=== PATIENT | male | born 1950 | race Caucasian/White ===

== ENCOUNTER 2022-08-31 09:27 | Outpatient (OUT) | payer MEDICARE, OTHER, SELFPAY ==
[2022-08-31 10:22] LABS: Basophils Absolute Auto 0.1 10^3/uL (0.0-0.1); Eosinophils Absolute Auto 0.4 10^3/uL (0.0-0.7); Eosinophils Percent Auto 4.8 % (0.9-7.0); Hematocrit 42.8 % (42.0-54.0); Hemoglobin 14.5 g/dL (14.0-18.0); Immature Granulocytes Abs Auto 0.03 10^3/uL (0.00-0.03); Immature Granulocytes Pct Auto 0.4 % (0.0-0.5); Lymphocytes Absolute Auto 1.3 10^3/uL (1.2-3.8); Lymphocytes Percent Auto 16.7 % (20.5-60.0); Mean Corpuscular HGB Conc 33.9 g/dL (29.9-35.2); Mean Corpuscular Hemoglobin 30.7 pg (25.9-34.0); Mean Corpuscular Volume 90.5 fL (80.0-94.0); Mean Platelet Volume 9.4 fL (9.5-13.5); Monocytes Absolute Auto 0.6 10^3/uL (0.3-0.8); Neutrophils Absolute Auto 5.5 10^3/uL (1.4-6.5); Neutrophils Percent Auto 69.1 % (43.0-75.0); Nucleated Red Blood Cells 0; Platelet Count 239 10^3/uL (150-450); Red Blood Count 4.73 10^6/uL (4.70-6.10); Red Cell Distribution Width 13.1 % (11.0-15.0); White Blood Count 7.9 10^3/uL (4.0-11.0)
[2022-08-31 11:08] LABS: Anion Gap 14.2; BUN Creatinine Ratio 16.2; Calcium 9.3 mg/dL (8.5-10.1); Carbon Dioxide 27.5 mmol/L (21.0-32.0); Chloride 101 mmol/L (98-107); Estimated GFR (African America 35 (>=60); Estimated GFR (Non-African Ame 29 (>=60); Glucose 176 mg/dL (74-106); Potassium 4.7 mmol/L (3.5-5.1); Sodium 138 mmol/L (136-145)
== END 2022-08-31 09:28 ==
LOC: LAB 09:42
PROVIDERS: PCP Internal Medicine; Visit Provider Internal Medicine
DX: I95.2 Hypotension due to drugs (principal); N18.32 Chronic kidney disease, stage 3b
CPT/HCPCS: 36415; 80048; 85025

== ENCOUNTER 2022-12-31 07:48 | Outpatient (OUT) | payer MEDICARE, OTHER, SELFPAY ==
[2022-12-31 08:44] LABS: Hematocrit 45.6 % (42.0-54.0); Hemoglobin 15.2 g/dL (14.0-18.0); Mean Corpuscular HGB Conc 33.3 g/dL (29.9-35.2); Mean Corpuscular Hemoglobin 31.2 pg (25.9-34.0); Mean Corpuscular Volume 93.6 fL (80.0-94.0); Mean Platelet Volume 9.9 fL (9.5-13.5); Platelet Count 191 10^3/uL (150-450); Red Blood Count 4.87 10^6/uL (4.70-6.10); Red Cell Distribution Width 13.3 % (11.0-15.0); White Blood Count 8.3 10^3/uL (4.0-11.0)
[2022-12-31 08:56] LABS: Bilirubin Urine NEGATIVE (NEGATIVE); Blood Urine NEGATIVE (NEGATIVE); Clarity Urine CLEAR (CLEAR); Color Urine LT. YELLOW (YELLOW); Glucose Urine UA >=1000 mg/dL (NEGATIVE); Ketones Urine NEGATIVE (NEGATIVE); Leukocyte Esterase Urine NEGATIVE (NEGATIVE); Nitrite Urine NEGATIVE (NEGATIVE); Protein Urine NEGATIVE (NEG/TRACE); Specific Gravity Urine 1.015 (1.005-1.025); Urobilinogen Urine 0.2 EU/dL (0.2-1.0)
[2022-12-31 09:03] LABS: Bacteria Urine NONE SEEN #/HPF (NONE SEEN); Cast Seen? NONE SEEN #/LPF (NONE SEEN); Crystals Seen? None Seen #/HPF (None Seen); Mucus Urine NONE SEEN (NONE SEEN); RBC Urine NONE SEEN #/HPF (0-2); Squamous Epithelial Cell Urine NONE SEEN #/LPF (NONE/RARE); WBC Urine NONE SEEN #/HPF (NONE SEEN)
[2022-12-31 09:07] LABS: Anion Gap 13.8; BUN Creatinine Ratio 16.7; Calcium 9.4 mg/dL (8.5-10.1); Carbon Dioxide 28.1 mmol/L (21.0-32.0); Chloride 104 mmol/L (98-107); Estimated GFR (African America 44 (>=60); Estimated GFR (Non-African Ame 36 (>=60); Glucose 196 mg/dL (74-106); Magnesium 2.1 mg/dL (1.8-2.4); Phosphorus 4.1 mg/dL (2.6-4.7); Potassium 4.9 mmol/L (3.5-5.1); Sodium 141 mmol/L (136-145); Uric Acid 5.7 mg/dL (3.5-7.2)
[2022-12-31 09:28] LABS: Creatinine Urine Random 104.31 mg/dL (20.00-300.00); Protein Creatinine Ratio Urine 0.09; Total Protein Urine Random 9.4 mg/dL (<=11.9)
[2023-01-01 13:10] LABS: PTH, Intact 60 pg/mL (15-65)
== END 2022-12-31 07:49 | disposition home or self-care (01) ==
LOC: LAB 07:51
PROVIDERS: PCP Internal Medicine; Visit Provider Internal Medicine
DX: I12.9 Hypertensive chronic kidney disease with stage 1 through stage 4 chronic kidney disease, or unspecified chronic kidney disease (principal); N18.30 Chronic kidney disease, stage 3 unspecified; E11.22 Type 2 diabetes mellitus with diabetic chronic kidney disease; E55.9 Vitamin D deficiency, unspecified; E78.5 Hyperlipidemia, unspecified
CPT/HCPCS: 36415; 80069; 81001; 82306; 82570; 83735; 83970; 84156; 84550; 85027

== ENCOUNTER 2023-01-04 07:46 | Outpatient (OUT) | payer MEDICARE, OTHER, SELFPAY ==
--- NOTE | 2023-01-04 07:49 | CT_ITS ---
[address] [address] Patient Name: LANI LIZAMA MRN: [id number] date: 1950 Sex: M Assigned Patient Location: CT Current Patient Location: CT Accession/Order Number: [id number] Exam Date: 01/04/2023 07:50 Report Date: 01/04/2023 13:45 At the request of: DEVEN CRESPO Procedure: CT chest wo con CT chest wo con CLINICAL HISTORY: History of pneumonia one year ago. Pulmonary Infiltrate R91.8 COMPARISON: 08/09/2022. CT CHEST TECHNIQUE: Noncontrast axial CT images obtained from lung apices through lung bases. Coronal and sagittal reconstructions performed. Dose reduction techniques were achieved by using automated exposure control and/or adjustment of mA and/or kV according to patient size and/or use of iterative reconstruction technique. CT CHEST FINDINGS: Lower thyroid unremarkable. No axillary adenopathy. Thoracic spondylosis without acute bony process. Cholelithiasis in the gallbladder. Normal sized adrenal glands. Median sternotomy and CABG with coronary artery calcifications. Pacemaker leads. No pericardial effusion. No mediastinal adenopathy. Lungs with unchanged groundglass and reticular opacities in the right upper and right middle lobes compared to prior. Posterior 7 mm right middle lobe opacity on image 51 minimally decreased from July 2022 of 8 mm. Inferior right middle lobe ill-defined nodular opacity on image 65 is stable. A few groundglass and slight chronic scarlike changes in the right lower lobe are stable. Left lung is clear. No interval consolidative opacities or effusions. CT/CT chest wo con IMPRESSION: Stable groundglass, reticular and scarlike opacities in the right lung back to July 2022. Ill-defined nodular focus in the inferior right middle lobe is stable. Posterior right middle lobe nodular opacity is minimally decreased. 6 month follow-up noncontrast CT. No other interval acute process or significant change. Electronically authenticated by: LUCY SARABIA Date: 01/04/2023 13:45
== END 2023-01-04 07:47 | disposition home or self-care (01) ==
LOC: CT 07:46
PROVIDERS: PCP Internal Medicine; Visit Provider Internal Medicine
DX: R91.8 Other nonspecific abnormal finding of lung field (principal)
CPT/HCPCS: 71250

== ENCOUNTER 2023-01-24 15:17 | Inpatient (IN) | payer MEDICARE, OTHER, SELFPAY ==
[2023-01-24] VITALS (36 sets, daily range): BP systolic 79–167; BP diastolic 47–106; PULSE 74–115; RESP 9–20; TEMP 36.2–36.8; O2SAT 92–99; BMI 26.6; BMI 26.9
--- NOTE | 2023-01-24 15:27 | XR_ITS ---
The [address] [address] Patient Name: LANI LIZAMA MRN: [id number] date: 1950 Sex: M Assigned Patient Location: ER Current Patient Location: ER Accession/Order Number: [id number] Exam Date: 01/24/2023 15:35 Report Date: 01/24/2023 16:02 At the request of: JACLYN VALDES Procedure: XR chest 1V EXAM: XR chest 1V HISTORY: Chest pain COMPARISON: 01/04/2023 TECHNIQUE: Chest X-ray AP, 1 view FINDINGS: Support devices: Left-sided pacemaker is noted with distal tip overlying the right atrium and right ventricle. Lungs/pleura: No consolidation, effusion, or pneumothorax. Redemonstration of hazy opacity in involving right middle lobe, similar to the prior study, likely representing parenchymal scarring. Heart and mediastinum: Normal contours. Bones: No acute abnormality identified. XR/XR chest 1V Impression: No radiographic evidence of acute cardiopulmonary process. Electronically authenticated by: HAZEL SCHILLING Date: 01/24/2023 16:02
--- NOTE | 2023-01-24 15:27 | ECG_ITS ---
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
--- NOTE | 2023-01-24 15:35 | ED.CHESTPAI1 ---
Documented by User: ANOOP Causey 01/24/23 17:49 HPI - Chest Pain General Chief Complaint: Chest Pain Stated Complaint: Chest Pain Time Seen by Provider: 01/24/23 15:27 Source: patient Mode of arrival: walk-in Limitations: no limitations History of Present Illness HPI narrative: patient is a 72-year-old male with a significant history of coronary artery disease, pacemaker, stents ?6 who presents to the Emergency Room for intermittent chest pain and pressure in the anterior chest that began today. 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 Patient states the pain was more intense today, he was feeling short of breath. He has had no fevers, cough, congestion. He had a heart attack in March of last year, after which his cardiac monitoring was abnormal requiring pacemaker placement. He did not take any aspirin or nitroglycerin prior to arrival today. Related Data Home Medications Medication Instructions Recorded Confirmed alprazolam 0.5 mg tablet (Xanax) 0.5 mg PO BID 01/24/23 01/24/23 aspirin 81 mg tablet,delayed 81 mg PO DAILY 01/24/23 01/24/23 release (Adult Aspirin Regimen) bumetanide 0.5 mg tablet 0.5 mg PO .MORNING 01/24/23 01/24/23 carvedilol 12.5 mg tablet 12.5 mg PO Q12H 01/24/23 01/24/23 cetirizine 10 mg capsule (All Day 10 mg PO DAILY 01/24/23 01/24/23 Allergy (cetirizine)) cholecalciferol (vitamin D3) 25 25 mcg PO DAILY 01/24/23 01/24/23 mcg (1,000 unit) tablet (Vitamin D3) clopidogrel 75 mg tablet 75 mg PO .HS 01/24/23 01/24/23 docusate sodium 100 mg capsule 100 mg PO DAILY 01/24/23 01/24/23 (Colace) empagliflozin 10 mg tablet 10 mg PO QAM 01/24/23 01/24/23 (Jardiance) insulin aspart U-100 100 unit/mL 1 sliding scale dose subcut 01/24/23 01/24/23 (3 mL) subcutaneous pen (Novolog USEASDIRECTD FlexPen U-100 Insulin aspart) insulin detemir U-100 100 unit/mL 1 unit subcut DAILY 01/24/23 01/24/23 (3 mL) subcutaneous pen (Levemir FlexPen) isosorbide mononitrate 60 mg 30 mg PO BID 01/24/23 01/24/23 tablet,extended release 24 hr lisinopril 2.5 mg tablet 2.5 mg PO DAILY 01/24/23 01/24/23 lovastatin 40 mg tablet 40 mg PO .PM 01/24/23 01/24/23 multivitamin with iron-mineral 1 tab PO DAILY 01/24/23 01/24/23 nitroglycerin 0.4 mg sublingual 0.4 mg sublingual Q5M PRN chest 01/24/23 01/24/23 tablet pain pantoprazole 40 mg tablet,delayed 40 mg PO DAILY 01/24/23 01/24/23 release potassium chloride 10 mEq 10 meq PO DAILY 01/24/23 01/24/23 tablet,extended release semaglutide 1 mg/dose (2 mg/1.5 1 mg subcut QWEEK 01/24/23 01/24/23 mL) subcutaneous pen injector (Ozempic) Allergies Allergy/AdvReac Type Severity Reaction Status Date / Time No Known Drug Allergies Allergy Verified 01/24/23 15:28 Review of Systems ROS Constitutional Denies: fever or chills Ears, nose, mouth, and throat Denies: throat pain Cardiovascular Reports: chest pain Respiratory Reports: shortness of breath; Denies: cough Gastrointestinal Denies: abdominal pain, nausea or vomiting Musculoskeletal Denies: back pain or neck pain Integumentary/Breast Denies: rash Neurological Denies: headache Hematologic/Lymphatic Denies: easy bruising PFSH [facility] Social History Smoking status: Never smoker Exam Narrative Exam Narrative: Gen.: Awake, alert, in no distress Head: Normocephalic, atraumatic ENT: Moist mucous membranes Respiratory: No respiratory distress, lungs clear bilaterally Cardio: Regular rate and rhythm Gastrointestinal: Abdomen is soft, nondistended and nontender to palpation Extremities: Moves extremities equally Psych: Normal mood and affect Neuro: No focal neuro deficit Skin: Warm, dry, intact Constitutional Vital Signs, click to edit/add: Last Vital Signs Temp 97.9 F 01/24/23 15:22 Pulse 106 H 01/24/23 18:15 Resp 14 01/24/23 18:15 BP 135/91 01/24/23 18:15 Pulse Ox 97 01/24/23 18:15 O2 Del Method Room Air 01/24/23 15:22 Course Vital Signs Vital signs: Vital Signs Temperature 97.9 F 01/24/23 15:22 Pulse Rate 110 H 01/24/23 15:22 Respiratory Rate 20 01/24/23 15:22 Blood Pressure 153/100 H 01/24/23 15:22 Pulse Oximetry 98 01/24/23 15:22 Oxygen Delivery Method Room Air 01/24/23 15:22 Temperature 97.9 F 01/24/23 15:22 Pulse Rate 106 H 01/24/23 18:15 Respiratory Rate 14 01/24/23 18:15 Blood Pressure 135/91 01/24/23 18:15 Pulse Oximetry 97 01/24/23 18:15 Oxygen Delivery Method Room Air 01/24/23 15:22 MDM - Chest Pain MDM Narrative Medical decision making narrative: lab studies including troponin are within normal limits, patient with no PE risk factors, patient was treated with a total of three sublingual nitroglycerin, aspirin given in the Emergency Room. Pain did improve significantly with nitroglycerin. I discussed this with cardiology at [facility], Dr. Armijo who recommended that the patient can be kept at this facility for cardiac rule out. Patient with stable blood pressure in the Emergency Room. Reevaluated by attending physician prior to admission. Medical Records Data Attestation: I reviewed the patient's medical records. Lab Data Attestation: I reviewed the patient's lab results. Labs: Lab Results 01/24/23 01/24/23 Range/Units 15:35 17:39 WBC 9.4 (4.0-11.0) 10^3/uL RBC 5.04 (4.70-6.10) 10^6/uL Hgb 15.8 (14.0-18.0) g/dL Hct 46.3 (42.0-54.0) % MCV 91.9 (80.0-94.0) fL MCH 31.3 (25.9-34.0) pg MCHC 34.1 (29.9-35.2) g/dL RDW 13.0 (11.0-15.0) % Plt Count 217 (150-450) 10^3/uL MPV 9.6 (9.5-13.5) fL Neut % (Auto) 63.8 (43.0-75.0) % Lymph % (Auto) 23.5 (20.5-60.0) % [place] % (Auto) 9.0 (1.7-12.0) % Eos % (Auto) 2.5 (0.9-7.0) % Baso % (Auto) 0.9 (0.2-2.0) % Neut # (Auto) 6.0 (1.4-6.5) 10^3/uL Lymph # (Auto) 2.2 (1.2-3.8) 10^3/uL [place] # (Auto) 0.8 (0.3-0.8) 10^3/uL Eos # (Auto) 0.2 (0.0-0.7) 10^3/uL Baso # (Auto) 0.1 (0.0-0.1) 10^3/uL Abs Immat Gran (auto) 0.03 (0.00-0.03) 10^3/uL Imm/Tot Granulo (auto) 0.3 (0.0-0.5) % PT 10.7 (9.0-11.6) sec INR 1.01 APTT 28.3 (22.3-36.2) sec Sodium 137 (136-145) mmol/L Potassium 4.3 (3.5-5.1) mmol/L Chloride 101 (98-107) mmol/L Carbon Dioxide 26.9 (21.0-32.0) mmol/L Anion Gap 13.4 BUN 30.0 H (7.0-18.0) mg/dL Creatinine 2.23 H (0.70-1.30) mg/dL Est GFR ( Amer) 35 L (>=60) Est GFR (Non-Af Amer) 29 L (>=60) BUN/Creatinine Ratio 13.5 Glucose 168 H (74-106) mg/dL Calcium 9.4 (8.5-10.1) mg/dL Total Bilirubin 0.7 (0.2-1.0) mg/dL AST 25 (15-37) U/L ALT 21 (16-63) U/L Alkaline Phosphatase 136 H (46-116) U/L Troponin I High Sens 12.2 57.2 (4.0-76.1) pg/mL NT-Pro-B Natriuret Pep 956.0 H (<=900.0) pg/mL Total Protein 8.4 H (6.4-8.2) g/dL Albumin 4.5 (3.4-5.0) g/dL Globulin 3.9 g/dL Albumin/Globulin Ratio 1.2 Imaging Data Chest x-ray: Attestation: I have reviewed the pertinent imaging results. Radiologist's impression: Procedure: XR chest 1V EXAM: XR chest 1V HISTORY: Chest pain COMPARISON: 01/04/2023 TECHNIQUE: Chest X-ray AP, 1 view FINDINGS: Support devices: Left-sided pacemaker is noted with distal tip overlying the right atrium and right ventricle. Lungs/pleura: No consolidation, effusion, or pneumothorax. Redemonstration of hazy opacity in involving right middle lobe, similar to the prior study, likely representing parenchymal scarring. Heart and mediastinum: Normal contours. Bones: No acute abnormality identified. Impression: No radiographic evidence of acute cardiopulmonary process. Electronically authenticated by: HAZEL SCHILLING Date: 01/24/2023 16:02 ECG Data Attestation: I personally reviewed and interpreted this ECG as follows: (electronic ventricular pacemaker at a rate of 107, no obvious ST elevation, EKG reviewed by attending physician) ECG interpretation date: 01/24/23 ECG interpretation time: 15:39 Heart Score History: Moderately Suspicious ECG: NS Repolarization Age: >65 years Risk Factors: >3 Risk Factors/ HX of CAD:2 Troponin: <Normal Limit Total Heart Score Recommendations & Risks:: 6 Discharge Plan Discharge Chief Complaint: Chest Pain Clinical Impression: Chest pain Patient Disposition: Admitted as Observation Time of Disposition Decision: 17:49 Condition: Good Documented by User: Christopher Deleon 01/24/23 18:25 HPI - Chest Pain General Chief Complaint: Chest Pain Stated Complaint: Chest Pain Time Seen by Provider: 01/24/23 15:27 Related Data Home Medications Medication Instructions Recorded Confirmed alprazolam 0.5 mg tablet (Xanax) 0.5 mg PO BID 01/24/23 01/24/23 aspirin 81 mg tablet,delayed 81 mg PO DAILY 01/24/23 01/24/23 release (Adult Aspirin Regimen) bumetanide 0.5 mg tablet 0.5 mg PO .MORNING 01/24/23 01/24/23 carvedilol 12.5 mg tablet 12.5 mg PO Q12H 01/24/23 01/24/23 cetirizine 10 mg capsule (All Day 10 mg PO DAILY 01/24/23 01/24/23 Allergy (cetirizine)) cholecalciferol (vitamin D3) 25 25 mcg PO DAILY 01/24/23 01/24/23 mcg (1,000 unit) tablet (Vitamin D3) clopidogrel 75 mg tablet 75 mg PO .HS 01/24/23 01/24/23 docusate sodium 100 mg capsule 100 mg PO DAILY 01/24/23 01/24/23 (Colace) empagliflozin 10 mg tablet 10 mg PO QAM 01/24/23 01/24/23 (Jardiance) insulin aspart U-100 100 unit/mL 1 sliding scale dose subcut 01/24/23 01/24/23 (3 mL) subcutaneous pen (Novolog USEASDIRECTD FlexPen U-100 Insulin aspart) insulin detemir U-100 100 unit/mL 1 unit subcut DAILY 01/24/23 01/24/23 (3 mL) subcutaneous pen (Levemir FlexPen) isosorbide mononitrate 60 mg 30 mg PO BID 01/24/23 01/24/23 tablet,extended release 24 hr lisinopril 2.5 mg tablet 2.5 mg PO DAILY 01/24/23 01/24/23 lovastatin 40 mg tablet 40 mg PO .PM 01/24/23 01/24/23 multivitamin with iron-mineral 1 tab PO DAILY 01/24/23 01/24/23 nitroglycerin 0.4 mg sublingual 0.4 mg sublingual Q5M PRN chest 01/24/23 01/24/23 tablet pain pantoprazole 40 mg tablet,delayed 40 mg PO DAILY 01/24/23 01/24/23 release potassium chloride 10 mEq 10 meq PO DAILY 01/24/23 01/24/23 tablet,extended release semaglutide 1 mg/dose (2 mg/1.5 1 mg subcut QWEEK 01/24/23 01/24/23 mL) subcutaneous pen injector (Ozempic) Allergies Allergy/AdvReac Type Severity Reaction Status Date / Time No Known Drug Allergies Allergy Verified 01/24/23 15:28 PFSH PFS Social History Smoking status: Never smoker Exam Constitutional Vital Signs, click to edit/add: Last Vital Signs Temp 97.9 F 01/24/23 15:22 Pulse 106 H 01/24/23 18:15 Resp 14 01/24/23 18:15 BP 135/91 01/24/23 18:15 Pulse Ox 97 01/24/23 18:15 O2 Del Method Room Air 01/24/23 15:22 Course Vital Signs Vital signs: Vital Signs Temperature 97.9 F 01/24/23 15:22 Pulse Rate 110 H 01/24/23 15:22 Respiratory Rate 20 01/24/23 15:22 Blood Pressure 153/100 H 01/24/23 15:22 Pulse Oximetry 98 01/24/23 15:22 Oxygen Delivery Method Room Air 01/24/23 15:22 Temperature 97.9 F 01/24/23 15:22 Pulse Rate 106 H 01/24/23 18:15 Respiratory Rate 14 01/24/23 18:15 Blood Pressure 135/91 01/24/23 18:15 Pulse Oximetry 97 01/24/23 18:15 Oxygen Delivery Method Room Air 01/24/23 15:22 MDM - Chest Pain Lab Data Labs: Lab Results 01/24/23 01/24/23 Range/Units 15:35 17:39 WBC 9.4 (4.0-11.0) 10^3/uL RBC 5.04 (4.70-6.10) 10^6/uL Hgb 15.8 (14.0-18.0) g/dL Hct 46.3 (42.0-54.0) % MCV 91.9 (80.0-94.0) fL MCH 31.3 (25.9-34.0) pg MCHC 34.1 (29.9-35.2) g/dL RDW 13.0 (11.0-15.0) % Plt Count 217 (150-450) 10^3/uL MPV 9.6 (9.5-13.5) fL Neut % (Auto) 63.8 (43.0-75.0) % Lymph % (Auto) 23.5 (20.5-60.0) % [place] % (Auto) 9.0 (1.7-12.0) % Eos % (Auto) 2.5 (0.9-7.0) % Baso % (Auto) 0.9 (0.2-2.0) % Neut # (Auto) 6.0 (1.4-6.5) 10^3/uL Lymph # (Auto) 2.2 (1.2-3.8) 10^3/uL [place] # (Auto) 0.8 (0.3-0.8) 10^3/uL Eos # (Auto) 0.2 (0.0-0.7) 10^3/uL Baso # (Auto) 0.1 (0.0-0.1) 10^3/uL Abs Immat Gran (auto) 0.03 (0.00-0.03) 10^3/uL Imm/Tot Granulo (auto) 0.3 (0.0-0.5) % PT 10.7 (9.0-11.6) sec INR 1.01 APTT 28.3 (22.3-36.2) sec Sodium 137 (136-145) mmol/L Potassium 4.3 (3.5-5.1) mmol/L Chloride 101 (98-107) mmol/L Carbon Dioxide 26.9 (21.0-32.0) mmol/L Anion Gap 13.4 BUN 30.0 H (7.0-18.0) mg/dL Creatinine 2.23 H (0.70-1.30) mg/dL Est GFR ( Amer) 35 L (>=60) Est GFR (Non-Af Amer) 29 L (>=60) BUN/Creatinine Ratio 13.5 Glucose 168 H (74-106) mg/dL Calcium 9.4 (8.5-10.1) mg/dL Total Bilirubin 0.7 (0.2-1.0) mg/dL AST 25 (15-37) U/L ALT 21 (16-63) U/L Alkaline Phosphatase 136 H (46-116) U/L Troponin I High Sens 12.2 57.2 (4.0-76.1) pg/mL NT-Pro-B Natriuret Pep 956.0 H (<=900.0) pg/mL Total Protein 8.4 H (6.4-8.2) g/dL Albumin 4.5 (3.4-5.0) g/dL Globulin 3.9 g/dL Albumin/Globulin Ratio 1.2 Heart Score Total Heart Score Recommendations & Risks:: 6 Discharge Plan Discharge Chief Complaint: Chest Pain Clinical Impression: Chest pain Patient Disposition: Admitted as Observation Time of Disposition Decision: 17:49 Condition: Good
[2023-01-24 15:51] LABS: Basophils Absolute Auto 0.1 10^3/uL (0.0-0.1); Basophils Percent Auto 0.9 % (0.2-2.0); Eosinophils Absolute Auto 0.2 10^3/uL (0.0-0.7); Eosinophils Percent Auto 2.5 % (0.9-7.0); Hematocrit 46.3 % (42.0-54.0); Hemoglobin 15.8 g/dL (14.0-18.0); Immature Granulocytes Abs Auto 0.03 10^3/uL (0.00-0.03); Immature Granulocytes Pct Auto 0.3 % (0.0-0.5); Lymphocytes Absolute Auto 2.2 10^3/uL (1.2-3.8); Lymphocytes Percent Auto 23.5 % (20.5-60.0); Mean Corpuscular HGB Conc 34.1 g/dL (29.9-35.2); Mean Corpuscular Hemoglobin 31.3 pg (25.9-34.0); Mean Corpuscular Volume 91.9 fL (80.0-94.0); Mean Platelet Volume 9.6 fL (9.5-13.5); Monocytes Absolute Auto 0.8 10^3/uL (0.3-0.8); Neutrophils Percent Auto 63.8 % (43.0-75.0); Platelet Count 217 10^3/uL (150-450); Red Blood Count 5.04 10^6/uL (4.70-6.10); White Blood Count 9.4 10^3/uL (4.0-11.0)
[2023-01-24 16:03] LABS: INR 1.01; Partial Thromboplastin Time 28.3 sec (22.3-36.2); Prothrombin Time 10.7 sec (9.0-11.6)
[2023-01-24] MEDS: NITROGLYCERIN 0.4 MG BOTTLE PO ×3 (16:03→17:49)
[2023-01-24] MEDS: ASPIRIN 81 MG TAB.CHEW 162 MG PO (16:03)
[2023-01-24 16:13] LABS: Alanine Aminotransferase 21 U/L (16-63); Albumin Globulin Ratio 1.2; Albumin Level 4.5 g/dL (3.4-5.0); Alkaline Phosphatase 136 U/L (46-116); Anion Gap 13.4; Aspartate Amino Transferase 25 U/L (15-37); BUN Creatinine Ratio 13.5; Bilirubin Total 0.7 mg/dL (0.2-1.0); Calcium 9.4 mg/dL (8.5-10.1); Carbon Dioxide 26.9 mmol/L (21.0-32.0); Chloride 101 mmol/L (98-107); Estimated GFR (African America 35 (>=60); Estimated GFR (Non-African Ame 29 (>=60); Globulin 3.9 g/dL; Glucose 168 mg/dL (74-106); Potassium 4.3 mmol/L (3.5-5.1); Sodium 137 mmol/L (136-145); Total Protein 8.4 g/dL (6.4-8.2); Troponin I High Sensitivity 12.2 pg/mL (4.0-76.1)
--- NOTE | 2023-01-24 16:54 | PC.NURSE ---
Assisted pt off of the commode at this time after having a BM.
--- NOTE | 2023-01-24 17:53 | PC.NURSE ---
PT REQUESTING HOME DOSE OF XANAX. INFORMED DR LUNA
[2023-01-24 17:59] LABS: Troponin I High Sensitivity 57.2 pg/mL (4.0-76.1)
[2023-01-24] MEDS: ALPRAZOLAM 0.5 MG TABLET PO (18:04)
[2023-01-24] MEDS: lidocaine HCL 15 ML, MAG HYDROX/ALUMINUM HYD/SIMETH 30 ML, HYOSCYAMINE SULFATE 0.25 MG PO (18:39)
[2023-01-24] MEDS: ACETAMINOPHEN 500 MG TABLET 1000 MG PO (20:48)
[2023-01-24 22:20] LABS: Troponin I High Sensitivity 1491.9 pg/mL (4.0-76.1)
--- NOTE | 2023-01-24 22:28 | P.HP_ITS ---
H&P: HPI History of Present Illness Chief complaint: Chest Pain Narrative: Patient presented to the emergency room with increasing shortness of breath and chest pain. His chest pain was resolved by nitroglycerin but having to use it more frequently. Work-up in the emergency room was unremarkable with a normal high-sensitivity troponin and normal EKG. Patient was transferred up to the ICU. Patient does have a known history of coronary artery disease he is status post CABG plus status post 7 stents Review of Systems ROS Status of ROS 10 or more systems reviewed and unremarkable except as noted in history and below PFSH PFSH Medical History (Updated 01/24/23 @ 19:56 by Cammy Adler) AMI (acute myocardial infarction) ?I21.9 - Acute myocardial infarction, unspecified (ICD-10) Anxiety ?F41.9 - Anxiety disorder, unspecified (ICD-10) Diabetes ?E11.9 - Type 2 diabetes mellitus without complications (ICD-10) GERD (gastroesophageal reflux disease) ?K21.9 - Gastro-esophageal reflux disease without esophagitis (ICD-10) Hypertension ?I10 - Essential (primary) hypertension (ICD-10) Pacemaker ?Z95.0 - Presence of cardiac pacemaker (ICD-10) Surgical History (Updated 01/24/23 @ 19:49 by Cammy Adler) History of heart artery stent ?Z95.5 - Presence of coronary angioplasty implant and graft (ICD-10) Social History (Updated 01/24/23 @ 20:00 by Cammy Adler) Within the past year, how often did you have a drink containing alcohol: never Within the past year, how often did you have six or more drinks on one occasion: never Score interpretation: A score less than 4 is consistent with normal alcohol consumption. Smoking status: Former smoker Non-prescribed substance use: denies use Previous occupational history: works 1 day a week Highest level of school completed/degree received: high school graduate Are you now , , , , never or living with a partner: In a typical week, how many times do you talk on the telephone with family, friends, or neighbors: 3 or more times per week How often do you get together with friends or relatives: once per week How often do you attend holiness or druze services: 1-3 times per year Little interest or pleasure in doing things: not at all Feeling down, depressed, or hopeless: not at all Feel stressed/tense/nervous/anxious/difficulty sleeping: to some extent Life stressors: other Life stressor details: getting older Meds Home Medications and Allergies Home Medications Medication Instructions Recorded Confirmed Type alprazolam 0.5 mg tablet (Xanax) 0.5 mg PO BID 01/24/23 01/24/23 History aspirin 81 mg tablet,delayed 81 mg PO DAILY 01/24/23 01/24/23 History release (Adult Aspirin Regimen) bumetanide 0.5 mg tablet 0.5 mg PO .MORNING 01/24/23 01/24/23 History carvedilol 12.5 mg tablet 12.5 mg PO Q12H 01/24/23 01/24/23 History carvedilol 25 mg tablet 12.5 mg PO Q12H 01/24/23 01/24/23 History cetirizine 10 mg capsule (All Day 10 mg PO DAILY 01/24/23 01/24/23 History Allergy (cetirizine)) cholecalciferol (vitamin D3) 25 25 mcg PO DAILY 01/24/23 01/24/23 History mcg (1,000 unit) tablet (Vitamin D3) clopidogrel 75 mg tablet 75 mg PO .HS 01/24/23 01/24/23 History docusate sodium 100 mg capsule 100 mg PO DAILY 01/24/23 01/24/23 History (Colace) empagliflozin 10 mg tablet 10 mg PO QAM 01/24/23 01/24/23 History (Jardiance) insulin aspart U-100 100 unit/mL 1 sliding scale dose subcut 01/24/23 01/24/23 History (3 mL) subcutaneous pen (Novolog USEASDIRECTD FlexPen U-100 Insulin aspart) insulin detemir U-100 100 unit/mL 1 unit subcut DAILY 01/24/23 01/24/23 History (3 mL) subcutaneous pen (Levemir FlexPen) isosorbide mononitrate 60 mg 60 mg PO BID 01/24/23 01/25/23 History tablet,extended release 24 hr lisinopril 2.5 mg tablet 2.5 mg PO DAILY 01/24/23 01/24/23 History lisinopril 5 mg tablet 2.5 mg PO .am 01/24/23 01/24/23 History lovastatin 40 mg tablet 40 mg PO .PM 01/24/23 01/24/23 History multivitamin with iron-mineral 1 tab PO DAILY 01/24/23 01/24/23 History nitroglycerin 0.4 mg sublingual 0.4 mg sublingual Q5M PRN chest 01/24/23 01/24/23 History tablet pain pantoprazole 40 mg tablet,delayed 40 mg PO DAILY 01/24/23 01/24/23 History release potassium chloride 10 mEq 10 meq PO DAILY 01/24/23 01/24/23 History tablet,extended release semaglutide 1 mg/dose (2 mg/1.5 1 mg subcut QWEEK 01/24/23 01/24/23 History mL) subcutaneous pen injector (AgileMDempStyleCaster) Allergies Allergy/AdvReac Type Severity Reaction Status Date / Time No Known Drug Allergies Allergy Verified 01/24/23 15:28 Exam Constitutional Vital Signs, click to edit/add: Last Vital Signs Temp 98.2 F 01/24/23 19:06 Pulse 94 H 01/24/23 20:35 Resp 17 01/24/23 19:06 BP 134/91 01/24/23 19:06 Pulse Ox 98 01/24/23 21:06 O2 Del Method Nasal Cannula 01/24/23 21:06 O2 Flow Rate 2 01/24/23 21:06 Documenting provider has reviewed patient's vital signs: yes Common normals: no apparent distress Chest Common normals: inspection of chest normal Respiratory Common normals: normal respiratory effort and no retractions Cardio Common normals: regular rate and regular rhythm GI Common normals: Normal to inspection, nondistended, normoactive bowel sounds present Results Labs Labs: Short CBC 01/24/23 Range/Units 15:35 WBC 9.4 (4.0-11.0) 10^3/uL Hgb 15.8 (14.0-18.0) g/dL Hct 46.3 (42.0-54.0) % Plt Count 217 (150-450) 10^3/uL BMP 01/24/23 15:35 Sodium 137 Potassium 4.3 Chloride 101 Carbon Dioxide 26.9 BUN 30.0 H Creatinine 2.23 H Glucose 168 H Calcium 9.4 Liver Function 01/24/23 Range/Units 15:35 Total Bilirubin 0.7 (0.2-1.0) mg/dL AST 25 (15-37) U/L ALT 21 (16-63) U/L Alkaline Phosphatase 136 H (46-116) U/L Albumin 4.5 (3.4-5.0) g/dL Assessment and Plan Assessment and Plan (1) Chest pain: (2) AMI (acute myocardial infarction): (3) Diabetes: (4) GERD (gastroesophageal reflux disease): (5) Hypertension: (6) Pacemaker: Plan Chest pain-with shortness of breath, pressure type-patient with a known history of coronary artery disease. Serial cardiac markers. Check echocardiogram in a.m. Blood pressure somewhat low is unable to increase nitrates. Is somewhat tachycardic but improving with rest Hypertension-continue with current medications GERD-continue with home medications Hyperglycemia, using Jardiance and Ozempic for added benefits as above Generalized anxiety disorder-continue with medications may need adjusted Chronic kidney disease-monitor daily Initially starting as chest pain rule out so maintain observation, depending on lab testing may need to change to inpatient status
[2023-01-24] MEDS: HEPARIN SODIUM (PORCINE) 5,000 UNIT/ML VIAL 4000 UNIT IV (23:32)
[2023-01-24] MEDS: HEPARIN SODIUM,PORCINE/D5W 25,000 UNIT/500 ML IV.SOLN 18.72 UNIT IV (23:33)
[2023-01-24] MEDS: CLOPIDOGREL BISULFATE 75 MG TABLET PO (23:34)
[2023-01-24] MEDS: CARVEDILOL 12.5 MG TABLET PO (23:35)
[2023-01-24 23:56] LABS: Partial Thromboplastin Time 29.2 sec (22.3-36.2)
[2023-01-25] VITALS (54 sets, daily range): BP systolic 86–143; BP diastolic 46–78; PULSE 69–94; RESP 0–29; TEMP 36.4–36.6; O2SAT 94–99
[2023-01-25 06:07] LABS: Anion Gap 13.2; Carbon Dioxide 26.9 mmol/L (21.0-32.0); Chloride 104 mmol/L (98-107); Glucose 128 mg/dL (74-106); Potassium 4.1 mmol/L (3.5-5.1); Sodium 140 mmol/L (136-145)
[2023-01-25 06:08] LABS: BUN Creatinine Ratio 15.3; Calcium 8.8 mg/dL (8.5-10.1); Estimated GFR (African America 43 (>=60); Estimated GFR (Non-African Ame 35 (>=60); Magnesium 2.2 mg/dL (1.8-2.4)
[2023-01-25 07:08] LABS: PTT Heparin Monitor 66.7 sec (48.2-68.6)
[2023-01-25 07:59] LABS: Hematocrit 43.5 % (42.0-54.0); Hemoglobin 14.6 g/dL (14.0-18.0); Mean Corpuscular HGB Conc 33.6 g/dL (29.9-35.2); Mean Corpuscular Hemoglobin 30.5 pg (25.9-34.0); Mean Platelet Volume 9.6 fL (9.5-13.5); Platelet Count 150 10^3/uL (150-450); Red Blood Count 4.78 10^6/uL (4.70-6.10); White Blood Count 8.1 10^3/uL (4.0-11.0)
[2023-01-25 08:03] LABS: Red Cell Distribution Width 13.1 % (11.0-15.0)
[2023-01-25 08:06] LABS: Glucometer 133 mg/dL (74-106)
[2023-01-25 08:16] LABS: Band Neutrophils Absolute 0.3 10^3/uL (0.0-0.3); Eosinophils Absolute Manual 0.24 10^3/uL (0.00-0.70); Lymphocytes Absolute Manual 1.53 10^3/uL (1.20-3.80); Monocytes Absolute Manual 0.56 10^3/uL (0.30-0.80); Segmented Neut Absolute Manual 5.42 10^3/uL (1.4-6.5)
--- NOTE | 2023-01-25 08:24 | P.DS_ITS ---
DS: Providers Provider Date of admission: 01/24/23 18:44 Primary care physician: Harley Goodman DO Consults: 01/24/23 18:25 Consult to Cardiology Routine Reason for consultation: chest pain Has provider been notified: No DS: Diagnosis Discharge Diagnosis (1) AMI (acute myocardial infarction): Plan Acute NSTEMI-with shortness of breath, pressure type-patient with a known history of coronary artery disease. Serial cardiac markers revealed the acute OH. Patient started on IV heparin. Case discussed with [facility] cardiology for likely transfer and possibly straight to the [employer] [facility] depending on bed availability Hypertension-stable as well as tachycardia improved GERD- Hyperglycemia, Generalized anxiety disorder Chronic kidney disease DS: Summary Hospital Course Hospital Course: Patient presented to the emergency room with chest pain, pressure type similar to his previous heart trouble. Patient admitted to the ICU for rule out acute myocardial infarction. His initial 2 sets of enzymes were negative but his third set tested positive his fourth set was even worse. After the third set patient was changed to inpatient status and placed on heparin drip. He was pain-free at the time. Case was discussed with [facility] cardiology who agreed to accept patient in transfer and do have a bed available so urgent transfer with a cardiac cath to be completed on the day of transfer. Patient's initial tachycardia improved. Blood pressure also stabilized prior to transfer. Status at Discharge Overall status at discharge: patient is not back to baseline Time Spent with Patient Time attestation: Total time spent providing and/or coordinating discharge services: Time spent: greater than 30 minutes Exam Constitutional Vital Signs, click to edit/add: Last Vital Signs Temp 97.6 F 01/25/23 07:23 Pulse 90 01/25/23 07:45 Resp 21 01/25/23 07:45 BP 131/73 01/25/23 07:20 Pulse Ox 98 01/25/23 07:45 O2 Del Method Nasal Cannula 01/25/23 07:23 O2 Flow Rate 2 01/25/23 07:23 Documenting provider has reviewed patient's vital signs: yes Common normals: no apparent distress Chest Common normals: inspection of chest normal Respiratory Common normals: normal respiratory effort and no retractions Cardio Common normals: regular rate and regular rhythm GI Common normals: Normal to inspection, nondistended, normoactive bowel sounds present DS: Data Data Completed and Pending Labs on day of discharge: Labs from last 24 hours 01/25/23 01/25/23 01/24/23 08:04 05:30 23:15 WBC 8.1 RBC 4.78 Hgb 14.6 Hct 43.5 MCV 91.0 MCH 30.5 MCHC 33.6 RDW 13.1 Plt Count 150 MPV 9.6 Neut % (Auto) Lymph % (Auto) [place] % (Auto) Eos % (Auto) Baso % (Auto) Neut # (Auto) Lymph # (Auto) [place] # (Auto) Eos # (Auto) Baso # (Auto) Abs Immat Gran (auto) Seg Neuts % (Manual) 67.0 Band Neutrophils % 4.0 Lymphocytes % (Manual) 19.0 L Monocytes % (Manual) 7.0 Eosinophils % (Manual) 3.0 Basophils % (Manual) 0.0 L Imm/Tot Granulo (auto) Neutrophils # (Manual) 5.42 Band Neutrophils # 0.3 Lymphocytes # (Manual) 1.53 Monocytes # (Manual) 0.56 Eosinophils # (Manual) 0.24 Basophils # (Manual) 0.00 PT INR APTT 29.2 PTT (Heparin Absorb) 66.7 Sodium 140 Potassium 4.1 Chloride 104 Carbon Dioxide 26.9 Anion Gap 13.2 BUN 29.0 H Creatinine 1.89 H Est GFR ( Amer) 43 L Est GFR (Non-Af Amer) 35 L BUN/Creatinine Ratio 15.3 Glucose 128 H Calcium 8.8 Magnesium 2.2 Total Bilirubin AST ALT Alkaline Phosphatase Troponin I High Sens 7278.4 H* NT-Pro-B Natriuret Pep 3108.0 H* Total Protein Albumin Globulin Albumin/Globulin Ratio POC Glucose 133 H 01/24/23 01/24/23 01/24/23 21:48 17:39 15:35 WBC 9.4 RBC 5.04 Hgb 15.8 Hct 46.3 MCV 91.9 MCH 31.3 MCHC 34.1 RDW 13.0 Plt Count 217 MPV 9.6 Neut % (Auto) 63.8 Lymph % (Auto) 23.5 [place] % (Auto) 9.0 Eos % (Auto) 2.5 Baso % (Auto) 0.9 Neut # (Auto) 6.0 Lymph # (Auto) 2.2 [place] # (Auto) 0.8 Eos # (Auto) 0.2 Baso # (Auto) 0.1 Abs Immat Gran (auto) 0.03 Seg Neuts % (Manual) Band Neutrophils % Lymphocytes % (Manual) Monocytes % (Manual) Eosinophils % (Manual) Basophils % (Manual) Imm/Tot Granulo (auto) 0.3 Neutrophils # (Manual) Band Neutrophils # Lymphocytes # (Manual) Monocytes # (Manual) Eosinophils # (Manual) Basophils # (Manual) PT 10.7 INR 1.01 APTT 28.3 PTT (Heparin Absorb) Sodium 137 Potassium 4.3 Chloride 101 Carbon Dioxide 26.9 Anion Gap 13.4 BUN 30.0 H Creatinine 2.23 H Est GFR ( Amer) 35 L Est GFR (Non-Af Amer) 29 L BUN/Creatinine Ratio 13.5 Glucose 168 H Calcium 9.4 Magnesium Total Bilirubin 0.7 AST 25 ALT 21 Alkaline Phosphatase 136 H Troponin I High Sens 1491.9 H* 57.2 12.2 NT-Pro-B Natriuret Pep 956.0 H Total Protein 8.4 H Albumin 4.5 Globulin 3.9 Albumin/Globulin Ratio 1.2 POC Glucose Discharge Plan Discharge Disposition: [facility] Acute [facility] Condition: Good Discharge Date/Time: 01/25/23 10:54 Discharge Location: [facility] Discharge location: [id number] Report called to ALBINO Petersen.
[2023-01-25] MEDS: CARVEDILOL 12.5 MG TABLET PO (08:35)
[2023-01-25] MEDS: ISOSORBIDE MONONITRATE 60 MG TAB.ER.24H 30 MG PO (08:35)
--- NOTE | 2023-01-25 08:38 | CM.NOTE ---
Rounds made with Dr. Mandel, discussed with pt transfer to [facility] d/t elevated Troponin and need for heart cath. Pt verbalizes understanding and in agreement with transfer.
--- NOTE | 2023-01-25 08:48 | PC.NURSE ---
Dr. Mandel was present at bedside and discussed with patient and this RN that the plan is to transfer patient out due history of NE and elevated troponins. Patient continues to deny chest pain at this time. Currently on a heparin drip, rate to remain the same based on PTT result from 0530. Discussed medications with Dr. Mandel, orders were placed to hold all medications, except for carvedilol and imdur dose for this morning. Administered as ordered, see eMAR. Dr. Mandel initiated transfer for patient and he was accepted at [facility] by Dr. Jaramillo and that Dr. Aguilar is aware that patient will be transferred and needs a heart catheterization. Will continue to monitor patient while awaiting bed notification at [facility].
--- NOTE | 2023-01-25 10:56 | CM.NOTE ---
Important Message From Medicare discussed with pt, pt verbalizes understanding and signs paper. Original given to pt and copy placed on pt's chart.
== END 2023-01-25 10:54 | disposition short-term general hospital (02) | DRG 282 ==
LOC: ER 18:12 → ICU 18:58
PROVIDERS: Physician Assistant; Admitting Provider Family Medicine; Emergency Provider Emergency Medicine; PCP Internal Medicine; Visit Provider Family Medicine
DX: I21.4 Non-ST elevation (NSTEMI) myocardial infarction (principal); R00.0 Tachycardia, unspecified; E11.65 Type 2 diabetes mellitus with hyperglycemia; E11.22 Type 2 diabetes mellitus with diabetic chronic kidney disease; I12.9 Hypertensive chronic kidney disease with stage 1 through stage 4 chronic kidney disease, or unspecified chronic kidney disease; N18.9 Chronic kidney disease, unspecified; K21.9 Gastro-esophageal reflux disease without esophagitis; I25.10 Atherosclerotic heart disease of native coronary artery without angina pectoris; F41.1 Generalized anxiety disorder; Z87.891 Personal history of nicotine dependence; I25.2 Old myocardial infarction; Z95.1 Presence of aortocoronary bypass graft; Z95.5 Presence of coronary angioplasty implant and graft; Z95.0 Presence of cardiac pacemaker; Z79.84 Long term (current) use of oral hypoglycemic drugs; Z79.02 Long term (current) use of antithrombotics/antiplatelets; Z79.82 Long term (current) use of aspirin; Z79.4 Long term (current) use of insulin; Z79.85 Long-term (current) use of injectable non-insulin antidiabetic drugs; Z79.899 Other long term (current) drug therapy
CPT/HCPCS: 36415; 71045; 80048; 80053; 83735; 83880; 84484; 85025; 85027; 85610; 85730; 93005; 94761; 96374; 99285; G0378

== ENCOUNTER 2023-02-13 08:45 | Outpatient (OUT) | payer MEDICARE, OTHER, SELFPAY ==
--- NOTE | 2023-02-13 08:59 | XR_ITS ---
The [address] [address] Patient Name: LANI LIZAMA MRN: [id number] date: 1950 Sex: M Assigned Patient Location: RAD Current Patient Location: [facility] Accession/Order Number: [id number] Exam Date: 02/13/2023 09:11 Report Date: 02/13/2023 09:38 At the request of: SERVANDO ARTEAGA Procedure: XR chest 2V EXAM: XR chest 2V HISTORY: Cardiac Pacemaker Management Z95.0 COMPARISON: None. TECHNIQUE: PA and lateral views of the chest. FINDINGS: The cardiomediastinal silhouette is normal. Left-sided cardiac pacemaker. No focal consolidation is identified. There is no pneumothorax. No pleural effusion is noted. The osseous structures are intact. XR/XR chest 2V IMPRESSION: No acute cardiopulmonary process. Electronically authenticated by: PARUL COSTELLO Date: 02/13/2023 09:38
== END 2023-02-13 08:46 | disposition home or self-care (01) ==
LOC: RAD 08:49
PROVIDERS: PCP Internal Medicine; Visit Provider Internal Medicine Cardiovascular Disease
DX: Z95.0 Presence of cardiac pacemaker (principal)
CPT/HCPCS: 71046

== ENCOUNTER 2023-03-06 14:37 | Outpatient (OUT) | payer MEDICARE, OTHER, SELFPAY ==
--- NOTE | 2023-03-06 14:47 | US_ITS ---
[address] [address] Patient Name: LANI LIZAMA MRN: [id number] date: 1950 Sex: M Assigned Patient Location: Current Patient Location: Accession/Order Number: [id number] Exam Date: 03/06/2023 15:00 Report Date: 03/07/2023 01:36 At the request of: CHRISSY LINARES Procedure: US carotid duplex BI EXAMINATION: US carotid duplex BI HISTORY: Carotid Stenosis COMPARISON: Ultrasound carotid artery bilateral 08/19/2020 TECHNIQUE: Duplex Doppler ultrasound analysis of carotid and vertebral arteries. . Bilateral carotid arterial duplex examination was performed using B-mode, color flow and spectral analysis. Carotid stenosis is reported according to validated velocity parameters, similar to NASCET criteria. FINDINGS: RIGHT CAROTID ARTERY: Moderate atherosclerotic disease within carotid bulb, ICA, and ECA (58% area reduction incidentally noted within the external carotid artery.) RIGHT VERTEBRAL: Antegrade flow. Subclavian: PSV: 160.0 cm/s EDV: 27.6 cm/s CCA: Prox: PSV: 65.1 cm/s EDV: 19.4 cm/s Mid: PSV: 67.7 cm/s EDV: 18.1 cm/s Distal: PSV: 57.5 cm/s EDV: 13.9 cm/s BULB: PSV: 54.9 cm/s EDV: 15.6 cm/s ICA: Prox: PSV: 56.6 cm/s EDV: 15.6 cm/s Mid: PSV: 71.3 cm/s EDV: 27.4 cm/s Distal: PSV: 64.7 cm/s EDV: 19.7 cm/s ECA: PSV: 64.7 cm/s EDV: 0.0 cm/s VERTEBRAL: PSV: 52.6 cm/s EDV: 19.7 cm/s ICA/CCA ratio: PSV: 1.2 EDV: 2.0 LEFT CAROTID ARTERY: Moderate marked atherosclerotic disease with 73% area reduction within the carotid bulb. LEFT VERTEBRAL: Antegrade flow. Subclavian: PSV: 61.7 cm/s EDV: 0.0 cm/s CCA: Prox: PSV: 46.4 cm/s EDV: 6.8 cm/s Mid: PSV: 49.6 cm/s EDV: 9.0 cm/s Distal: PSV: 39.7 cm/s EDV: 5.7 cm/s BULB: PSV: 34.3 cm/s EDV: 8.0 cm/s ICA: Prox: PSV: 51.5 cm/s EDV: 15.3 cm/s Mid: PSV: 55.9 cm/s EDV: 19.7 cm/s Distal: PSV: 44.8 cm/s EDV: 14.9 cm/s ECA: PSV: 148.4 cm/s EDV: 6.7 cm/s VERTEBRAL: PSV: 29.0 cm/s EDV: 10.9 cm/s ICA/CCA ratio: PSV: 1.4 EDV: 3.4 US/US carotid duplex BI IMPRESSION: 1. Right carotid moderate atherosclerotic disease with 0-49% flow stenosis. 2. Left carotid moderate marked atherosclerotic disease with 73% area reduction of the bulb, but only 0-49% flow stenosis. Spectral Doppler US Thresholds Stenosis (%) PSV (cm/sec) VICA/VCCA 0-49 <150 <2.5 50-69 150-225 2.5-4.0 >70 >225 >4.0 Electronically authenticated by: HIGINIO FLANAGAN Date: 03/07/2023 01:36
== END 2023-03-06 14:38 | disposition home or self-care (01) ==
PROVIDERS: PCP Internal Medicine; Visit Provider Internal Medicine Interventional Cardiology
DX: R55 Syncope and collapse (principal); I65.23 Occlusion and stenosis of bilateral carotid arteries; I25.5 Ischemic cardiomyopathy; I42.8 Other cardiomyopathies
CPT/HCPCS: 93880

== ENCOUNTER 2023-04-16 08:52 | Outpatient (OUT) | payer MEDICARE, OTHER, SELFPAY ==
--- OUTSIDE RECORDS SUMMARY | 2023-04-16 09:05 | XMS_ITS | CCD ---
Author Name Unknown Address [address] [place] [address] Organization [facility] Care Team Providers Care 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 Name Role Phone ELTAHAWY, EHAB A Admitting Unavailable ELTAHAWY, EHAB A Attending Unavailable HARLEY CRESPO Referring Unavailable HARLEY CRESPO Primary Care Unavailable ELTAHAWY, PNIKY A Surgeon Unavailable MD Procedure Practitioner Unavailab le ELTAHAWY, NETOAB A Admitting Unavailable ELCANDIDO, EHAB A Attending Unavailable HARLEY CRESPO Referring Unavailable HARLEY CRESPO Primary Care Unavailable Viky Kwong Unavailable Kingsley Good Unavailable Shannon Escobar Unavailable HARLEY CRESPO Primary Care Physician [phone] Harley Crespo DO Primary Care Provider DO Harley Crespo Primary Care Provider [phone] JULY Kwong Attending Provider DO Gagan Shahid Admit Provider DO Gagan Shahid Attending Provider Harley Crespo Unavailable VIJAY, DR LOWE Consulting Unavailable CHERIE, DR CARVALHO Primary Care Unavailable ELTAHAWY, DR LOWE Attending Unavailable ELTAHAWJo, DR LOWE Admitting Unavailable VLAD, DR PARUL Sanchez Procedure Practitioner Unavaila ble NIDA ., DR OBDULIO Cisneros Attending Unavailable ALVA ., DR OBDULIO Cisneros Admitting Unavailable VLAD, DR PARUL Sanchez Consulting Unavailable CHERIE, DR CARVALHO Primary Care Unavailable NIDA ., DR OBDULIO Cisneros Consulting Unavailable YOLA, JASPAL Consulting Unavailable BALL, DR CARVALHO Admitting Unavailable BALL, DR CARVALHO Attending Unavailable BALL, DR CARVALHO Primary Care Unavailable BALL, DR CARVALHO Consulting Unavailable ZIEBER, DR HIGINIO Sanchez Consulting Unavailable ZIEBFLAVIO, DR HIGINIO Sanchez Consulting Unavailable BALL, DR CARVALHO Primary Care Unavailable JENNI, KEVIN Attending Unavailable JENNI, KEVIN Admitting Unavailable JENNI, KEVIN Consulting Unavailable ELTAHAWY, DR LOWE Consulting Unavailable BALL, DR CARVALHO Primary Care Unavailable ELTAHAWY, DR LOWE Attending Unavailable ELTAHAWY, DR LOWE Admitting Unavailable BALL, DR CARVALHO Primary Care Unavailable CHU, DR PARUL Sanchez Admitting Unavailable CHU, DR PARUL Sanchez Attending Unavailable CHU, DR PARUL Sanchez Consulting Unavailable ZIEBER, DR HIGINIO Sanchez Consulting Unavailable HAY ., DR LING Consulting Unavailable SAID, WAYNE Consulting Unavailable LATISHA, KINGSLEY Consulting Unavailable BALL, DR CARVALHO Primary Care Unavailable LATISHA, KINGSLEY Attending Unavailable LATISHA, KINGSLEY Admitting Unavailable NILL ., DR FARAH Admitting Unavailable NILL ., DR FARAH Attending Unavailable BALL, DR CARVALHO Primary Care Unavailable ZIEBER, DR HIGINIO Sanchez Consulting Unavailable NILL ., DR FARAH Consulting Unavailable BALL, DR CARVALHO Consulting Unavailable BALL, DR CARVALHO Primary Care Unavailable BALL, DR CARVALHO Attending Unavailable BALL, DR CARVALHO Admitting Unavailable ZIEBER, DR HIGINIO Sanchez Consulting Unavailable BALL, DR CARVALHO Consulting Unavailable BALL, DR CARVALHO Primary Care Unavailable BALL, DR CARVALHO Attending Unavailable BALL, DR CARVALHO Admitting Unavailable ZIEBER, DR HIGINIO Sanchez Consulting Unavailable BALL, DR CARVALHO Admitting Unavailable BALL, DR CARVALHO Attending Unavailable BALL, DR CARVALHO Primary Care Unavailable BALL, DR CARVALHO Consulting Unavailable ZIEBER, DR HIGINIO Sanchez Consulting Unavailable BALL, DR CARVALHO Consulting Unavailable BALL, DR CARVALHO Primary Care Unavailable BALL, DR CARVALHO Attending Unavailable BALL, DR CARVALHO Admitting Unavailable RASTEGAR, HAZEL Consulting Unavailable LATISHA, KINGSLEY Admitting Unavailable LATISHA, KINGSLEY Attending Unavailable BALL, DR CARVALHO Primary Care Unavailable LATISHA, KINGSLEY Consulting Unavailable BALL, DR CARVALHO Admitting Unavailable BALL, DR CARVALHO Attending Unavailable BALL, DR CARVALHO Primary Care Unavailable BALL, DR CARVALHO Consulting Unavailable ZIEBER, DR HIGINIO Sanchez Consulting Unavailable MAPUS, TON Consulting Unavailable BALL, DR CARVALHO Primary Care Unavailable MAPUS, TON Attending Unavailable MAPUS, TON Admitting Unavailable WEST, DR SHANNON Hernandez Consulting Unavailable BALL, DR CARVALHO Primary Care Unavailable ELTAHAWY, DR LOWE Attending Unavailable ELTAHAWY, DR LOWE Admitting Unavailable ELTAHAWY, DR LOWE Consulting Unavailable BALL, DR CARVALHO Admitting Unavailable BALL, DR CARVALHO Attending Unavailable BALL, DR CARVALHO Primary Care Unavailable BALL, DR CARVALHO Consulting Unavailable CHERIE, DR CARVALHO Primary Care Unavailable PAY ., DR GORDILLO Admitting Unavailable PAY ., DR GORDILLO Attending Unavailable PAY ., DR GORDILLO Consulting Unavailable GAGAN CAREY Consulting Unavailable MihaelaWillia Unavailable PEPE, TIN Referring Unavailable JENNI, KEVIN Referring Unavailable HERCHER, RON Referring Unavailable JENNI, KEVIN Referring Unavailable ELTAHAWY, EHAB Attending Unavailable BARAZI, LAILA Attending Unavailable DELTA VARGAS Referring Unavailable PEDROABIEL Christensen Admitting Unavailable LAURA, SP Attending Unavailable JENNI, KEVIN Referring Unavailable JENNI, KEVIN Referring Unavailable WITHERELL, SHELMITH Attending Unavailable WITHERELL, SHELMITH Attending Unavailable ELTAHAWY, EHAB Attending Unavailable BARAZI, LAILA Attending Unavailable ELTAHAWY, EHAB Attending Unavailable JENNI, KEVIN Referring Unavailable WITHERELL, SHELMITH Attending Unavailable BARAZI, LAILA Attending Unavailable PEPE, TIN Referring Unavailable HERCHER, RON Referring Unavailable WITHERELL, SHELMITH Attending Unavailable WITHERELL, SHELMITH Referring Unavailable HERCHER, RON Referring Unavailable HERCHER, RON Attending Unavailable JENNI, KEVIN Admitting Unavailable JENNI, KEVIN Attending Unavailable Viky Kwong Attending Unavailable Varghese Tondra K Admitting Unavailable Harley Crespo Primary Care Unavailable Allergies Allergy Classification Reported Allergen(s) Allergy Type Date of Onset Reaction(s) Facility (1 source) 60050,00; Translations: [Unknown] Propensity to adverse reactions (disorder) 9 [facility] Repository Medications Current Medications Medication Drug Class(es) Dates Sig (Normalized) Sig (Original) 3 ML semaglutide 1.34 MG/ML Pen Injector [Ozempic] (20 sources) Start: 04-10-2021 inject 1 mg by subcutaneous injection every week Ozempic (1 MG/DOSE) 4 MG/3ML 1mg Subcutaneous once weekly Apr, Active inject 1 mg by subcu taneous injection every week Ozempic (1 MG/DOSE) 4 MG/3ML 1mg Subcutaneous once weekly Not-Taking inject 1 mg by subcu taneous injection every week Ozempic (1 MG/DOSE) 4 MG/3ML 1mg Subcutaneous once weekly 0.25 Active inject 1 mg by subcu taneous injection every week Ozempic (1 MG/DOSE) 4 MG/3ML 1mg Subcutaneous once weekly Active ALPRAZolam 0.5 mg oral tablet (20 sources) Benzodiazepine Start: 08-03-2022 take 1 tablet by mouth three times daily ALPRAZolam 0.5 MG TAKE 1 TABLET BY MOUTH 3 TIMES A DAY for Jan, Active Start: 06-22-2020 take 1 tablet by bhavik th three times daily as needed for anxiety alprazolam 0.5 mg Tab 0.5 mg = 1 tab(s), Oral, TID, PRN for anxiety, Refills(s) 0 Start Date: 09/07/21 Status: Ordered Comment on above: Take 0.5 mg by mouth at bedtime as needed. amLODIPine 10 mg oral tablet (20 sources) Dihydropyridine Calcium Channel Jason Start: take 1 tablet by mouth once daily amLODIPine 10 mg Tab 10 mg = 1 tab(s), Oral, Daily, Refills(s) 0 Start Date: 09/07/21 Status: Ordered Start: 06-22-2020 take 10 mg by mouth once daily Amlodipine Active 10 MG PO Daily June 22, 2020 12:00am Start: 10-16-2018 take 1 tablet by bhavik th once daily amLODIPine (NORVASC) 5 mg tablet Take 5 mg by mouth once daily. 3 10/16/2018 Active Comment on above: Take 5 mg by mouth o nce daily. aspirin 81 mg delayed release oral tablet (20 sources) Platelet Aggregation Inhibitor, Nonsteroidal Anti-inflammatory Drug Start: 06-22-2020 take 1 tablet by mouth once daily aspirin 81 mg Oral EC Tab 81 mg = 1 tab(s), Oral, Daily, Refills(s) 0 Start Date: 09/07/21 Status: Ordered Start: 06-22-2020 take 81 mg by mouth once daily Aspirin Active 81 MG PO Daily June 22, 2020 12:00am take 1 tablet by bhavik th every twenty-four hours Aspirin 81 MG 1 tablet Orally Once a day Active Comment on above: Aspirin Active 81 MG PO Daily June 22, 2020 4:21am bumetanide 0.5 mg oral tablet (20 sources) Loop Diuretic take 1 tablet by mouth every twenty-four hours Bumex 0.5 MG 1 tablet Orally Once a day Active carvedilol 25 mg oral tablet (20 sources) alpha-Adrenergic Jason, beta-Adrenergic Jason Start: 01-17-2022 take 25 mg by mouth twice daily at mealtime Carvedilol Active 25 MG PO Twice daily with meals 60 30 January 17, 2022 12:00am Start: 09-07-2021 take 1 tablet by bhavik th twice daily carvedilol 12.5 mg Tab 12.5 mg = 1 tab(s), Oral, BID, Refills(s) 0 Start Date: 09/07/21 Status: Ordered Start: 06-22-2020 End: 01-17-2022 take 12.5 mg by mouth twice daily Carvedilol Discontinued 12.5 MG PO Twice daily June 22, 2020 12:00am January 17, 2022 2:28pm take 1 tablet by bhavik th every twelve hours Carvedilol 6.25 MG 1 tablet with food Orally Twice a day Active take 1 tablet by bhavik th twice daily at mealtime carvedilol (COREG) 25 mg tablet Take 25 mg by mouth twice daily with meals. 0 Active Comment on above: Take 25 mg by mouth twice daily with meals. cholecalciferol 0.025 mg oral tablet (2 sources) Vitamin D take 1 tablet by mouth every twenty-four hours Vitamin D 25 MCG (1000 UT) 1 tablet Orally Once a day Active Cholecalciferol, Vitamin D3, 25 mcg (1,000 unit) cap Take 1,000 Units by mouth. 0 Active Comment on above: Take 1,000 Units by mouth. clopidogrel 75 mg oral tablet (20 sources) P2Y12 Platelet Inhibitor Start: 01-15-2022 take 75 mg by mouth once daily Clopidogrel Active 75 MG PO Daily January 15, 2022 12:00am Start: 09-07-2021 take 1 tablet by bhavik th once daily Plavix 75 mg Tab 75 mg = 1 tab(s), Oral, Daily, Refills(s) 0 Start Date: 09/07/21 Status: Ordered Start: 07-11-2020 End: 07-13-2020 take 75 mg by mouth once daily Clopidogrel Discontinue d 75 MG PO Daily July 11, 2020 12:00am July 13, 2020 4:14pm Comment on above: Take 75 mg by mouth once daily. docusate sodium 100 mg oral capsule (20 sources) take 1 capsule by mouth every twenty-four hours Colace 100 MG 1 capsule as needed Orally Once a day Active Colace Active empagliflozin 10 mg oral tablet (20 sources) Sodium-Glucose Cotransporter 2 Inhibitor Start: 06-22-2020 take 1 tablet by mouth once daily in the morning Jardiance 10 mg oral tablet 10 mg = 1 tab(s), Oral, qAM, Refills(s) 0 Start Date: 09/07/21 Status: Ordered empagliflozin (Gary REDDY) 25 mg tablet q 24 HR. 0 Active Comment on above: q 24 HR. Insulin Aspart U-100 (Novolog Flexpen U-100 Insulin) 100 unit/mL (3 mL) Insulin Pen (1 source) Start: 01-15-2022 inject 5 [IU] by subcutaneous injection three times daily Insulin Aspart U-100 (Novolog Flexpen U-100 Insulin) 100 unit/mL (3 mL) Insulin Pen Active 1 UNIT SUBCUT Three times daily January 15, 2022 12:00am 5 units at times depending on blood sugar 3 ml insulin aspart, human 100 unt/ml pen injector (20 sources) Insulin Analog inject 4 [IU] by subcutaneous injection once daily at mealtime NovoLOG FlexPen 100 UNIT/ML 6-8-10-12 units according to meal size; 4 units for snack. Corrective scale 1:20 ac, tid (HS >200 1/2 dose) Subcutaneous ac, hs (expect up to 40 units/day) Active inject 4 [IU] by sub cutaneous injection at mealtime NovoLOG FlexPen 100 UNIT/ML 6-8-10-12 units according to meal size; 4 units for snack. Corrective scale 1:20 ac, tid (HS >200 1/2 dose) Subcutaneous ac, hs Active 3 ml insulin degludec 100 unt/ml pen injector (1 source) Insulin Analog Start: 03-12-2023 inject 20 [IU] by subcutaneous injection once daily in the morning Tresiba FlexTouch 100 UNIT/ML 20 units Subcutaneous qam Mar, Active Humulin N (4 sources) Start: 09-07-2021 inject 15 [IU] by subcutaneous injection twice daily Humulin N 15 unit(s), SubCutaneous, BID, Refills(s) 0 Start Date: 09/07/21 Status: Ordered Start: 07-11-2020 End: 01-15-2022 Insulin Nph Isoph U-100 Josh n (Novolin N Nph U-100 Insulin) 100 unit/mL Suspension Discontinued 1 UNIT SUBCUT As Directed July 11, 2020 12:00am January 15, 2022 3:42pm sliding scale insulin NPH josh n (HUMULIN N NPH INSULIN KWIKPEN) 100 unit/mL (3 mL) inpn injection pen Inject subcutaneously. 0 Active NovoLIN N ReliOn 100 UNIT/ML 14 units Subcutaneous bid (titrate up to 40 units/day) Not-Taking Comment on above: Inject subcutaneousl y. 24 hr isosorbide mononitrate 60 mg extended release oral tablet (20 sources) Nitrate Vasodilator Start: 2 take 60 mg by mouth twice daily Isosorbide Mononitrate Active 60 MG PO Twice daily 60 30 January 17, 2022 12:00am Start: 06-22-2020 End: 01-17-2022 take 1 tablet by mouth once daily in the morning isosorbide mononitrate 60 mg ER Tab 60 mg = 1 tab(s), Oral, qAM, Refills(s) 0 Start Date: 09/07/21 Status: Ordered take 1 tablet by bhavik th every twelve hours Isosorbide Mononitrate ER 30 MG 1 tablet Orally bid Not-Taking/PRN isosorbide monon itrate ER (IMDUR) 30 mg 24 hr tablet Take 60 mg by mouth once daily. 0 Active Comment on above: Take 60 mg by mouth once daily. Levemir FlexPen 100 UNIT/ML (1 source) Levemir FlexPen 100 UNIT/ML 12 units Subcutaneous bid (titrate up to 40 units/day) Active lisinopril 20 mg oral tablet (20 sources) Angiotensin Converting Enzyme Inhibitor Start: 1 take 1 tablet by mouth once daily lisinopril 20 mg Tab 20 mg = 1 tab(s), Oral, Daily, Refills(s) 0 Start Date: 09/07/21 Status: Ordered take 1 tablet by bhavik th every twelve hours Lisinopril 2.5 MG 1 tablet Orally twice a day Active take 1 tablet by bhavik th every twenty-four hours Lisinopril 2.5 MG 1 tablet Orally Once a day Active take 1 tablet by bhavik th every twelve hours Lisinopril 5 MG 1 tablet Orally TWICE A DAY Active take 1 tablet by bhavik th every twenty-four hours Lisinopril 5 MG 1 tablet Orally Once a d ay Active take 1 tablet by bhavik th every twenty-four hours Lisinopril 40 MG 1 tablet Orally Once a day Active Comment on above: Take 20 mg by mouth once daily. loratadine 10 mg oral tablet (20 sources) Start: 01-15-2022 take 10 mg by mouth once daily Loratadine Active 10 MG PO Daily January 15, 2022 12:00am loratadine 10 mg cap Take by mouth. 0 Active Comment on above: Take by mouth. lovastatin 40 mg oral tablet (20 sources) HMG-CoA Reductase Inhibitor Start: 09-07-2021 take 1 tablet by mouth once daily at bedtime lovastatin 40 mg Tab 40 mg = 1 tab(s), Oral, Once a day (at bedtime), Refills(s) 0 Start Date: 09/07/21 Status: Ordered Start: 06-22-2020 take 40 mg by mouth once daily in the evening Lovastatin Active 40 MG PO Every evening June 22, 2020 12:00am take 1 tablet by bhavik th once daily at bedtime lovastatin (MEVACOR) 20 mg tablet Take 20 mg by mouth daily at bedtime. 0 Active Comment on above: Take 20 mg by mouth daily at bedtime. 24 hr metoprolol succinate 50 mg extended release oral tablet (5 sources) beta-Adrenergic Jason take 1 tablet by mouth every twenty-four hours Metoprolol Succinate ER 50 MG 1 tablet Orally Once a day Active Multivitamin preparation (20 sources) Start: 2 take 1 tablet by mouth once daily Multivitamin Active 1 TAB PO Daily January 15, 2022 12:00am take 1 tablet by mouth once rg y Multi Vitamin - 1 tablet Orally Once a day Active nitroglycerin 0.4 mg subling ual tablet (6 sources) Nitrate Vasodilator Nitrostat 0. 4 MG as directed Sublingual 1 every 5 minutes up to 3 doses as needed for chest pain Active nitroglycerin saha blingual (NITROSTAT) 0.4 mg SL tablet Dissolve 0.4 mg under the tongue every 5 minutes as needed. 0 Active Comment on above: Dissolve 0.4 mg unde r the tongue every 5 minutes as needed. One Touch Glucometer (20 sources) Start: 10-31-2016 Start: 10-31-2016 One Touch Gluc ometer use to test blood sugars E11.9 4 x daily Oct, Active ozempic (1 mg/dose) 4 mg/3ml solution pen-injector (1 source) inject 1 mg by subcutaneous injection every week Ozempic (1 MG/DOSE) 4 MG/3ML 1mg Subcutaneous once weekly Active pantoprazole 40 mg delayed release oral tablet (20 sources) Proton Pump Inhibitor Start: 07-11-19 take 1 tablet by mouth once daily Pantoprazole [address] Tab 40 mg = 1 tab(s), Oral, Daily, Refills(s) 0 Start Date: 09/07/21 Status: Ordered rosuvastatin calcium 40 mg oral tablet (9 sources) HMG-CoA Reductase Inhibitor take 1 tablet by mouth every twenty-four hours Rosuvastatin Calcium 40 MG 1 tablet Orally Once a day Active Ozempic (5 sources) Start: 09-30-19 Ozempic qWeek, Refill(s) 0 Start Date: 09/29/21 Status: Ordered Start: 07-10-2021 Semaglutide (O zempic) 0.25 mg or 0.5 mg(2 mg/1.5 mL) Pen Injector Active 0.5 MG SUBCUT every week July 10, 2021 12:00am Saturday vitamin b12 1 mg oral tablet (1 source) Vitamin B12 Start: 01-15-2022 take 1 tablet by mouth once daily Cyanocobalamin (Vitamin B-12) (Vitamin B-12) 1,000 mcg Tablet Active 1000 MCG PO Daily January 15, 2022 12:00am Vitamin D 25 MCG (1000 UT) (20 sources) take 1 tablet by mouth once rg y Vitamin D 25 MCG (1000 UT) 1 tablet Orally Once a day Active Vitamins/Minerals (20 sources) Vitamins/Mineral s as directed Orally Active Completed/Discontinued Medications Medication Drug Class(es) Dates Sig (Normalized) Sig (Original) amoxicillin 875 mg / clavulanate 125 mg oral tablet (1 source) Penicillin-class Antibacterial Start: 06-24-2020 End: 07-11-2020 take 1 tablet by mouth twice daily Amoxicillin-Pot Clavulanate (Augmentin) 875-125 mg tablet Discontinued 1 TAB PO Twice daily June 24, 2020 12:00am July 11, 2020 5:52pm dapagliflozin 10 mg oral tablet (5 sources) Sodium-Glucose Cotransporter 2 Inhibitor take 1 tablet by mouth every twenty-four hours Farxiga 10 MG 1 tablet Orally Once a day Not-Taking/PRN ergocalciferol, vitamin D2, (VITAMIN D2 ORAL) (1 source) ergocalciferol, vitamin D2, (VITAMIN D2 ORAL) Take by mouth. 0 Active Comment on above: Take by mouth. famotidine 40 mg oral tablet (20 sources) Histamine-2 Receptor Antagonist Start: 01-15-2022 End: 01-15-2022 take 40 mg by mouth twice daily Famotidine Discontinued 40 MG PO Twice daily January 15, 2022 12:00am January 15, 2022 7:52pm Start: 09-07-2021 take 1 tablet by bhavik th twice daily famotidine 20 mg Tab 20 mg = 1 tab(s), Oral, BID, Refills(s) 0 Start Date: 09/07/21 Status: Ordered Start: 06-22-2020 End: 07-10-2021 famotidine (PEPCID) 40 mg ta blet TAKE 1 2 (ONE HALF) TABLET BY MOUTH TWICE DAILY 0 08/18/2020 Active Comment on above: TAKE 1 2 (ONE HALF) TABLET BY MOUTH TWICE DAILY FreeStyle Precision Ja Test - (1 source) Start: 8 FreeStyle Precision Ja Test - as directed In Vitro as prompted by freestyle 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 for high or low glucose, up ot TID Mar, Not-Taking 3 ml insulin detemir 100 unt/ml pen injector (20 sources) Insulin Analog Start: 2 End: 2 inject 1 [IU] by subcutaneous injection twice daily Insulin Detemir U-100 (Levemir Flexpen) 100 unit/mL (3 mL) Insulin Pen Discontinued 1 UNIT SUBCUT Twice daily January 15, 2022 12:00am January 15, 2022 6:27pm Start: 09-29-2021 Levemir as dir ected, Refills(s) 0 Start Date: 09/29/21 Status: Ordered inject 10 [IU] by saha bcutaneous injection twice daily Levemir FlexPen 100 UNIT/ML 10 units Subcutaneous bid (titrate up to 40 units/day) Active Levemir FlexPen 100 UNIT/ML 12 units Subcutaneous bid (titrate up to 40 units/day) Active Levemir Flexpen 100 UNIT/ML 13 units Subcutaneous bid Active insulin lispro 100 unt/ml injectable solution (5 sources) Insulin Analog HumaLOG 100 UNIT /ML as directed Injection with breakfast, lunch and evening meal Not-Taking/PRN HumaLOG 100 UNIT /ML as directed Injection with breakfast, lunch and evening meal Not-Taking insulin, regular, human 100 unt/ml injectable solution (2 sources) Insulin Start: 07-11-2020 End: 01-15-2022 Insulin Regular Human (Novolin R Regular U-100 Insuln) 100 unit/mL Solution Discontinued 1 UNIT SUBCUT As Directed July 11, 2020 12:00am January 15, 2022 3:42pm sliding scale NovoLIN R ReliOn 100 UNIT/ML 10-15-20 units ac according to meal size plus corrective scale 1:20 ac tid (hs if > over 200 half dose) SQ AC,HS expect 80 units a day Not-Taking multivit-minerals/folic acid (ONE-A-DAY MEN VITACRAVES ORAL) (1 source) multivit-mineral s/folic acid (ONE-A-DAY MEN VITACRAVES ORAL) Take by mouth. 0 Active Comment on above: Take by mouth. pioglitazone 15 mg oral tablet (1 source) Peroxisome Proliferator Receptor alpha Agonist, Peroxisome Proliferator Receptor gamma Agonist, Thiazolidinedione Sta rt: 9 pioglitazone (ACTOS) 15 mg tablet potassium chloride 10 meq oral tablet (20 sources) take 1 tablet by mouth once daily at mealtime Potassium Chloride 10 MEQ 1 tablet with food Orally Once a day Not-Taking/PRN predniSONE 20 mg oral tablet (1 source) Start: 06-24-2020 End: 07-11-2020 take 40 mg by mouth once daily Prednisone Discontinued 40 MG PO Daily 18 01June 24, 2020 12:00am July 11, 2020 5:52pm sacubitril 24 mg / valsartan 26 mg oral tablet (5 sources) Angiotensin 2 Receptor Jason take 1 tablet by mouth every twelve hours Entresto 24-26 MG 1 tablet Orally Twice a day Not-Taking/PRN thiamine 100 mg oral tablet (20 sources) take 1 tablet by mouth every twenty-four hours Vitamin B-1 100 MG 1 tablet Orally Once a day Not-Taking/PRN ticagrelor 90 mg oral tablet (1 source) Start: 07-13-2020 End: 07-10-2021 take 1 tablet by mouth twice daily Ticagrelor (Brilinta) 90 mg Tablet Discontinued 90 MG PO Twice daily 180 90 July 13, 2020 12:00am July 10, 2021 9:59am triamcinolone acetonide 0.47988 mg/mg topical ointment (1 source) Corticosteroid triamcinolone (KENALOG) 0.025 % ointment Apply to affected area twice daily. 0 Active Comment on above: Apply to affected ar ea twice daily. VITAMIN B COMPLEX ORAL (1 source) VITAMIN B COMPLE X ORAL Take by mouth every other day. 0 Active Comment on above: Take by mouth every other day. Problems Active Problems Problem Classification Problem Date Documented Date Episodic/Chronic Acute myocardial infarction (10 sources) Myocardial infarction; Translations: [Non-ST elevation (NSTEMI) myocardial infarction] Onset: 2 07-12-2020 Chronic Administrative/social admission (20 sources) Financial problem; Translations: [Other problems related to housing and economic circumstances] Onset: 1 Resolved: 2 Episodic Cardiac dysrhythmias (6 sources) Bradycardia, unspecified; Translations: [Palpitations] Onset: 1 Resolved: 2 Episodic Chronic kidney disease (20 sources) Chronic kidney disease stage 3; Translations: [Chronic renal disease, stage III] 09-07-2021 Chronic Chronic obstructive pulmonary disease and bronchiectasis (1 source) Acute exacerbation of chronic obstructive airways disease 06-22-2020 Chronic Complication of device; implant or graft (20 sources) Arteriosclerosis of coronary artery bypass graft; Translations: [CAD (coronary artery disease) of bypass graft] Onset: 3 Chronic Complications of surgical procedures or medical care (1 source) Hypotension due to drugs Episodi c Conduction disorders (14 sources) Atrioventricular block, complete; Translations: [Presence of cardiac pacemaker] Onset: 2 Chronic Congestive heart failure; nonhypertensive (20 sources) Acute on chronic systolic (congestive) heart failure; Translations: [Acute on chronic combined systolic (congestive) and diastolic (congestive) heart failure] Onset: 2 Chronic Coronary atherosclerosis and other heart disease (20 sources) Multi vessel coronary artery disease; Translations: [Atherosclerotic heart disease of [place] coronary artery without angina pectoris] Onset: 2 09-07-2021 Chronic Coronary atherosclerosis and other heart disease (4 sources) Presence of aortocoronary bypass graft; Translations: [Presence of coronary angioplasty implant and graft] Onset: 2 Episodic Deficiency and other anemia (20 sources) Anemia of renal disease; Translations: [Anemia in chronic kidney disease] Chronic Deficiency and other anemia (2 sources) Anemia in chronic kidney disease; Translations: [ANEMIA IN CHRONIC KIDNEY DISEASE] Onset: 3 Chronic Diabetes mellitus with complications (20 sources) Type 2 diabetes mellitus; Translations: [Type 2 diabetes mellitus with diabetic neuropathy, unspecified] Onset: 1 Resolved: 2 Chronic Diabetes mellitus without complication (19 sources) Diabetes mellitus; Translations: [Type 2 diabetes mellitus without complications] Onset: 2 09-07-2021 Chronic Diabetes mellitus without complication (1 source) Diabetes mellitus without complication; Translations: [Type 2 diabetes mellitus with diabetic chronic kidney disease] Onset: 3 Disorders of lipid metabolism (20 sources) Hyperlipidemia; Translations: [Other hyperlipidemia] Onset: 1 Resolved: 2 Chronic Diverticulosis and diverticulitis (1 source) Diverticulosis of large intestine without perforation or abscess without bleeding; Translations: [DVRTCLOS LG INT NO PERF/ABSC W/O BL] Onset: 2 Chronic Esophageal disorders (20 sources) Gastroesophageal reflux disease; Translations: [Gastro-esophageal reflux disease without esophagitis] 09-07-2021 Chronic Essential hypertension (20 sources) Benign hypertension; Translations: [Essential (primary) hypertension] Onset: 1 Resolved: 2 Chronic Genitourinary symptoms and ill-defined conditions (20 sources) Lower urinary tract obstructive syndrome; Translations: [Obstructive and reflux uropathy, unspecified] Episodic Hyperplasia of prostate (1 source) Nocturia due to benign prostatic hypertrophy 09-07-2021 Chronic Hypertension with complications and secondary hypertension (20 sources) Chronic kidney disease due to hypertension; Translations: [Hypertensive chronic kidney disease with stage 1 through stage 4 chronic kidney disease, or unspecified chronic kidney disease] Onset: 1 Resolved: 2 Chronic Neoplasms of unspecified nature or uncertain behavior (3 sources) Monoclonal gammopathy of uncertain significance; Translations: [Monoclonal gammopathy (clinical)] Onset: 9 09-07-2021 Chronic Nutritional deficiencies (20 sources) Vitamin D deficiency; Translations: [Vitamin D deficiency, unspecified] Onset: 1 Resolved: 2 Chronic Other aftercare (20 sources) Long-term current use of insulin; Translations: [roasterman (current) use of insulin] Episodic Other aftercare (11 sources) roasterman (current) use of insulin; Translations: [[facility] current use of insulin Z79.4] Onset: 1 Resolved: 2 Episodic Other circulatory disease (1 source) Stenosis of abdominal aorta 09-07-2021 Chronic Other connective tissue disease (20 sources) Disorder of rotator cuff; Translations: [Unspecified rotator cuff tear or rupture of right shoulder, not specified as traumatic] Episodic Other connective tissue disease (20 sources) Impingement syndrome of right shoulder region; Translations: [Impingement syndrome of right shoulder] Episodic Other diseases of kidney and ureters (20 sources) Secondary hyperparathyroidism; Translations: [Secondary hyperparathyroidism of renal origin] Chronic Other diseases of kidney and ureters (6 sources) Secondary hyperparathyroidism of renal origin; Translations: [Secondary hyperparathyroidism] Chronic Other gastrointestinal disorders (1 source) Irritable bowel syndrome 09-07-2021 Chronic Other gastrointestinal disorders (16 sources) Constipation; Translations: [Constipation, unspecified] Episodic Other hematologic conditions (1 source) Raised cardiac enzyme or marker; Translations: [Other specified abnormalities of plasma proteins] 07-11-2020 Episodic Other lower respiratory disease (1 source) Hypoxia; Translations: [Hypoxemia] 06-22-2020 Episodic Other lower respiratory disease (9 sources) Other nonspecific abnormal finding of lung field; Translations: [OTH NONSPECIFIC ABN FIND LNG FIELD] Onset: 2 Episodic Other lower respiratory disease (5 sources) Solitary pulmonary nodule; Translations: [SOLITARY PULMONARY NODULE] Onset: 2 Episodic Other lower respiratory disease (10 sources) Nodule of lung; Translations: [Solitary pulmonary nodule] Episodic Other non-traumatic joint disorders (20 sources) Shoulder pain; Translations: [Pain in right shoulder] Episodic Other nutritional; endocrine; and metabolic disorders (20 sources) Obesity; Translations: [Obesity (BMI 30.0-34.9)] 09-07-2021 Chronic Other nutritional; endocrine; and metabolic disorders (20 sources) Body mass index 30+ - obesity; Translations: [Body mass index (BMI) 30.0-30.9, adult] Chronic Other nutritional; endocrine; and metabolic disorders (20 sources) Obese class I; Translations: [Body mass index (BMI) 31.0-31.9, adult] Chronic Other nutritional; endocrine; and metabolic disorders (1 source) Body mass index (BMI) 31.0-31.9, adult; Translations: [BMI 31.0-31.9,adult Z68.31] Onset: 1 Resolved: 1 Chronic Other nutritional; endocrine; and metabolic disorders (2 sources) Body mass index (BMI) 30.0-30.9, adult Onset: 2 Resolved: 2 Chronic Other nutritional; endocrine; and metabolic disorders (20 sources) Increased body mass index; Translations: [Body mass index (BMI) 29.0-29.9, adult] Episodic Other nutritional; endocrine; and metabolic disorders (1 source) Body mass index 25-29 - overweight 09-29-2021 Episodic Other nutritional; endocrine; and metabolic disorders (3 sources) Body mass index (BMI) 27.0-27.9, adult Onset: 2 Resolved: 2 Episodic Other nutritional; endocrine; and metabolic disorders (1 source) Body mass index (BMI) 26.0-26.9, adult Episodic Other screening for suspected conditions (not mental disorders or infectious disease) (3 sources) Increased immunoglobulin; Translations: [Patient encounter status] 09-07-2021 Episodic Peripheral and visceral atherosclerosis (1 source) Intermittent claudication of bilateral lower limbs co-occurrent and due to atherosclerosis 09-07-2021 Chronic Spondylosis; intervertebral disc disorders; other back problems (1 source) Lumbar spondylosis 09-07-2021 Chronic Syncope (2 sources) Syncope and collapse; Translations: [Syncope and collapse] Onset: 3 Episodic Unclassified (1 source) CHRN KIDNEY DISEASE STG 3 UNSP; Translations: [CHRN KIDNEY DISEASE STG 3 UNSP] Onset: 3 Unclassified (1 source) CONTACT W/AND (SUSP) EXPOS COVID-19; Translations: [CONTACT W/AND (SUSP) EXPOS COVID-19] Onset: 2 Unclassified (8 sources) Chronic renal impairment, stage 3b; Translations: [Chronic renal impairment, stage 3b] Unclassified (1 source) Other supraventricular tachycardia; Translations: [Other supraventricular tachycardia] Onset: 3 Past or Other Problems Problem Classification Problem Date Documented Date Episodic/Chronic Abdominal pain (11 sources) Right lower quadrant pain; Translations: [Right lower quadrant pain] Onset: 09-29-2021 Episodic Biliary tract disease (5 sources) Calculus of gallbladder without cholecystitis without obstruction; Translations: [CALCU GB W/O CHOLECYST W/O OBST] Onset: 09-04-2021 Episodic Chronic kidney disease (19 sources) Chronic kidney disease; Translations: [Chronic kidney disease, stage 3 unspecified] Onset: 02-14-2021 Resolved: 06-06-2021 Diabetes mellitus with complications (20 sources) Diabetes mellitus with complications; Translations: [Type II diabetes mellitus with manifestations, uncontrolled] Esophageal disorders (20 sources) Esophageal disorders; Translations: [Gastro-esophageal reflux disease with esophagitis, without bleeding] Onset: 06-19-2021 Resolved: 06-19-2021 Fever of unknown origin (1 source) Fever, unspecified; Translations: [FEVER UNSPECIFIED] Onset: 10-31-2021 Episodic Fluid and electrolyte disorders (1 source) Dehydration; Translations: [DEHYDRATION] Onset: 10-31-2021 Episodic Nausea and vomiting (7 sources) Nausea; Translations: [Nausea] Onset: 09-29-2021 Episodic Nonspecific chest pain (6 sources) Chest pain; Translations: [Chest pain, unspecified] Onset: 01-15-2022 07-11-2020 Episodic Other aftercare (1 source) [facility] (current) use of aspirin; Translations: [[employer] PROFESSIONAL CURRENT USE OF ASPIRIN] Onset: 04-03-2022 Episodic Other aftercare (1 source) Other intermediate (current) drug therapy; Translations: [OTH LONGTERM CURRENT DRUG THERAPY] Onset: 04-03-2022 Episodic Other hematologic conditions (2 sources) Other specified abnormalities of plasma proteins; Translations: [Other specified abnormalities of plasma proteins] Onset: 03-21-2022 Episodic Other lower respiratory disease (1 source) Shortness of breath; Translations: [SHORTNESS OF BREATH] Onset: 01-17-2022 Episodic Other upper respiratory infections (1 source) Acute upper respiratory infection, unspecified; Translations: [ACUTE UP RESPIRATORY INFECTION UNS] Onset: 04-03-2022 Episodic Pneumonia (except that caused by tuberculosis or sexually transmitted disease) (4 sources) Other pneumonia, unspecified organism; Translations: [OTHER PNEUMONIA UNS ORGANISM] Onset: 12-08-2021 Episodic Screening and history of mental health and substance abuse codes (1 source) Personal history of nicotine dependence; Translations: [PERSONAL HISTORY OF NICOTINE DEPEND] Onset: 04-03-2022 Episodic Unclassified (20 sources) Long-term current use of insulin; Translations: [Insulin long-term use] Unclassified (2 sources) Chronic renal impairment, stage 3b N18.32 Unclassified (1 source) Other supraventricular tachycardia; Translations: [Other supraventricular tachycardia] Onset: 03-07-2023 Results Test Name Value Interpretation Reference Range Facility Office Visiton 03-18-2023 Follow-up visit [id number] Lani Lizama 1950 M Date Provider Department Center 03/18/2023 Nakul-LAILA DUARTE Family History Problem Relation Age of Onset Heart attack Mother Other Father Other Brother Heart attack Maternal Grandmother Heart attack Maternal Grandfather Family Status - Relation Status Age at Mother Father Brother Maternal Grandmother Maternal Grandfather Level of Service:[id number] MD OFFICE/OUTPATIENT ESTABLISHED MOD MDM 30 MIN Normal [facility] A1C HEMOGLOBINon 03-12-2023 HbA1c (Bld) [Mass fraction] 7.1 % [employer] Other Glucose - FINGER STICKon Glucose [Mass/Vol] 151 mg/dL [employer] Other HbA1c (Bld) [Mass fraction]o n 03-12-2023 A1C HEMOGLOBIN [employer]Info Other Office Visiton 03-07-2023 Follow-up visit [id number] Lani Lizama 1950 Date Provider Department Center 03/07/2023 PINKY JULES CARD [facility] Family History Problem Relation Age of Onset Heart attack Mother Other Father Other Brother Heart attack Maternal Grandmother Heart attack Maternal Grandfather Family Status - Relation Status Age at Mother Father Brother Maternal Grandmother Maternal Grandfather Level of Service:[id number] MD OFFICE/OUTPATIENT ESTABLISHED MOD MDM 30-39 MIN Normal [facility] Orders Onlyon 02-27-2023 Orders Only [id number] Lani Lizama 1950 Date Provider Department Center 02/27/2023 GEOVANNA MONTES CARD [facility] Family History Problem Relation Age of Onset Heart attack Mother Other Father Other Brother Heart attack Maternal Grandmother Heart attack Maternal Grandfather Family Status - Relation Status Age at Mother Father Brother Maternal Grandmother Maternal Grandfather Normal [facility] Office Visiton 02-19-2023 Follow-up visit [id number] Lani Lizama 1950 Date Provider Department Center 02/19/2023 DEISY SCHWARTZ CARD [facility] Family History Problem Relation Age of Onset Heart attack Mother Other Father Other Brother Heart attack Maternal Grandmother Heart attack Maternal Grandfather Family Status - Relation Status Age at Mother Father Brother Maternal Grandmother Maternal Grandfather Level of Service:[id number] MD POSTOP FOLLOW UP VISIT RELATED TO ORIGINAL PX Normal [facility] HPon 02-12-2023 HP ------ -- Attestation signed by Kevin Arteaga MD at 02/12/2023 10:32 PM By using the attestations below, the signing clinician agrees that I have read and verify that the documentation has been personally reviewed by me and ensure that the documentation accurately reflects the encounter. GC: I personally saw this patient on the day of the encounter, performed the lisa portion(s) of the service and participated in the management and confirm the resident's documentation. Please note there may be an additional personal documentation from me. 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 He had chest pain once and took nitroglycerin which provided relief. He was suppose to have his imdur dose increased but again no RX given He is planned for ICD BiV upgrade but this has been delayed on multiple occasions unfortunately due to scheduling conflicts with EP lab Accompanied by Son 04/2022 HPI: Lani Lizama is a 72 y.o. year old with past medical history of CAD s/p CABG, PVD, DM2 and hypertension. He was recently admitted to [facility] for NSTEMI. Had inpatient stress test and heart cath. Denies SOB but still having chest pain and has taken nitroglycerin a few times for relief. Had CT chest last week s/p discharge. Cardiac catheterization revealed patent bypass grafts and worsening sh[place] ira vessel disease. Medications were adjusted. I had a conversation with his son also who mentions pt having bradycardia for ~1-2 months where HR was in 40's. It is unclear as to why he got the event monitor but this revealed presence of high degree AV block on 03/19/22 @9pm. Pt did not report syncope but state fatigue. He is on BB which he needs for CAD and Ischemic CMP. PMH: Medical History Past Medical History: Diagnosis Date Carotid artery stenosis Coronary artery disease Diabetes mellitus (CMS/HCC) Hyperlipidemia Hypertension PVD (peripheral vascular disease) (CMS/HCC) Third degree heart block (CMS/HCC) PSH: Surgical History Past Surgical History: Procedure Laterality Date CARDIAC CATHETERIZATION 07/12/2020 CARDIAC CATHETERIZATION 10/15/2018 CARDIAC CATHETERIZATION 02/24/2018 CARDIAC CATHETERIZATION 09/27/2015 CORONARY ARTERY BYPASS GRAFT CORONARY STENT PLACEMENT SH: Social Determinants of Health Tobacco Use: Medium Risk (02/01/2023) Patient History Smoking Tobacco Use: Former Smokeless Tobacco Use: Never Passive Exposure: Not on file Alcohol Use: Not on file Financial Resource Strain: Low Risk (01/25/2023) Overall Financial Resource Strain (CARDIA) Difficulty of Paying Living Expenses: Not hard at all Food Insecurity: Unknown (01/25/2023) Hunger Vital Sign Worried About Running Out of Food in the Last Year: Never true Ran Out of Food in the Last Year: Not on file Transportation Needs: Unknown (01/25/2023) PRAPARE - Transportation Lack of Transportation (Medical): No Lack of Transportation (Non-Medical): Not on file Physical Activity: Not on file Stress: Not on file Social Connections: Not on file Intimate Partner Violence: Unknown (01/25/2023) Humiliation, Afraid, Rape, and Kick questionnaire Fear of Current or Ex-Partner: No Emotionally Abused: Not on file Physically Abused: Not on file Sexually Abused: Not on file Depression: Not on file Housing Stability: Unknown (01/25/2023) Housing Stability Vital Sign Unable to Pay for Housing in the Last Year: Not on file Number of Places Lived in the Last Year: Not on file Unstable Housing in the Last Year: No Allergies: No Known Allergies Weight: No results found for: PTWEIGHT Meds: Current Outpatient Medications on File Prior to Visit Medication Sig Dispense Refill ALPRAZolam (Xanax) 0.5 mg tablet Take 1 tablet by mouth in the morning, afternoon, and at bedtime. aspirin 81 mg chewable tablet Chew 1 tablet every day by oral route. bumetanide (Bumex) 0.5 mg tablet Take 1 tablet (0.5 mg) by mouth in the morning. 90 tablet 3 carvedilol (Coreg) 12.5 mg tablet Take 1 tablet (12.5 mg) by mouth with breakfast and with evening meal. 180 tablet 3 cholecalciferol, vitamin D3, (VITAMIN D3 ORAL) Take by mouth in the morning. rubina (more content not included)... [facility] NURSNOTEon 02-12-2023 NURSNOTE RN educated pt on d/ c instructions. RN encouraged pt to voice any questions or concerns. Pt verbalizes no questions or concerns at this time. [facility] NURSNOTE CHG wipes and iodine nasal swab completed per protocol. [facility] Orders Onlyon 02-12-2023 Orders Only [id number] Lani Lizama [address] [facility] Provider Department Center 02/12/2023 PORFIRIO GAXIOLA [facility] Family History Problem Relation Age of Onset Heart attack Mother Other Father Other Brother Heart attack Maternal Grandmother Heart attack Maternal Grandfather Family Status - Relation Status Age at Mother Father Brother Maternal Grandmother Maternal Grandfather [facility] Follow-Upon 02-01-2023 Follow-Up [id number] Lani Lizama 1950 M Date Provider Department Center 02/01/2023 Nakul-LAILA DUARTE [facility] Family History Problem Relation Age of Onset Heart attack Mother Other Father Other Brother Heart attack Maternal Grandmother Heart attack Maternal Grandfather Family Status - Relation Status Age at Mother Father Brother Maternal Grandmother Maternal Grandfather Level of Service:[id number] MD OFFICE/OUTPATIENT ESTABLISHED MOD MDM 30-39 MIN Reason for Visit and Comments: Follow-up [[id number]] [facility] 30on 01-28-2023 30 The patient is Moder ately Stable - Low risk of patient condition declining or worsening The patient's goals for the shift include comfort The clinical goals for the shift include vss, safety Over the shift, the patient continued to make progress toward the following goals. Normal [facility] APTTon 01-28-2023 ACTIVATED PARTIAL THROMBOPLASTIN TIME IN PPP BY COAGULATION ASSAY 125.9 Seconds High 25.0-35.0 [facility] Comment on above: Result Comment: Clin ical significance of the APTT is questionable in the presence of heparin. Performed By: #### L [id number] ####[facility] ([employer] [facility])[address] [place] [address] BASIC METABOLIC PANELon 01-01 Anion gap [Moles/Vol] 10 mmol/L Normal 7-20 [facility] Comment on above: Performed By: #### L [id number] #### [facility] ([facility]) [address] [place] [address] Calcium [Mass/Vol] 9.1 mg/dL Normal 8.6-10.3 [facility] Comment on above: Performed By: #### L [id number] #### [facility] ([employer] [facility]) [address] [place] [address] Chloride [Moles/Vol] 110 mmol/L High 98-107 [facility] Comment on above: Performed By: #### L [id number] #### [facility] ([facility]) [address] [place] [address] CO2 [Moles/Vol] 24 mmol/L Normal 21-31 [facility] Comment on above: Performed By: #### L [id number] #### [facility] ([employer] [facility]) [address] [place] [address] Creatinine [Mass/Vol] 1.46 mg/dL High 0.70-1.30 [facility] Comment on above: Performed By: #### L [id number] #### [facility] ([facility]) [address] [place] [address] GLOMERULAR FILTRATION RATE ML/MIN/1.73 SQ M.PREDICTED 51.1 mL/min/1.73m*2 Low >60.0 [facility] Comment on above: Result Comment: [facility]???s estimated glomerular filtration rate (eGFR) will no longer include consideration of race in its calculation. The National Kidney Foundation???s eGFR Task Force developed new recommendations for the estimation of the glomerular filtration rate in the [place] They recommend immediate implementation of the new equation refit without the race variable in all laboratories because the calculation does not include race. In addition to not including race in the calculation and reporting, it included diversity in its development, and has acceptable performance characteristics and potential consequences that do not disproportionately affect any one group of individuals. Performed By: #### L [id number] #### [facility] ([facility]) [address] [place] [address] Glucose [Mass/Vol] 133 mg/dL High 70-100 [facility] Comment on above: Performed By: #### L [id number] #### [facility] ([facility]) [address] [place] [address] Potassium [Moles/Vol] 4.0 mmol/L Normal 3.5-5.1 [facility] Comment on above: Performed By: #### L [id number] #### [facility] ([facility]) [address] [place] [address] Sodium [Moles/Vol] 140 mmol/L Normal 136-145 [facility] Comment on above: Performed By: #### L [id number] #### [facility] ([employer] [facility]) [address] [place] [address] Urea nitrogen [Mass/Vol] 23 mg/dL Normal 7-25 [facility] Comment on above: Performed By: #### L [id number] #### [facility] ([facility]) [address] [place] [address] UREA NITROGEN/CREATININE (MASS RATIO) IN SER/PLAS 15.8 Normal [facility] Comment on above: Performed By: #### L [id number] #### [facility] ([facility]) [address] [place] [address] CBCon 01-28-2023 Erythrocyte distribution width (RBC) [Ratio] 13.2 % Normal 11.5-15.0 [facility] Comment on above: Performed By: #### L [id number] ####[facility] ([facility] [place])[address] [place] [address] ERYTHROCYTE MEAN CORPUSCULAR HEMOGLOBIN CONCENTRATION (G/DL) BY AUTOMATED 33.8 g/dL Normal 32.0-35.0 [facility] Comment on above: Performed By: #### L [id number] ####[facility] ([facility])[address] [place] [address] Hematocrit (Bld) [Volume fraction] 39.0 % Normal 39.0-55.0 [facility] Comment on above: Performed By: #### L [id number] ####[facility] ([facility])[address] [place] [address] Hemoglobin (Bld) [Mass/Vol] 13.2 g/dL Normal 13.0-17.0 [facility] Comment on above: Performed By: #### L [id number] ####[facility] ([facility])[address] [place] [address] MCH (RBC) [Entitic mass] 31.1 pg Normal 27.0-33.0 [facility] Comment on above: Performed By: #### L [id number] ####[facility] ([facility])[address] [place] [address] MCV (RBC) [Entitic vol] 91.8 fL Normal 82.0-98.0 [facility] Comment on above: Performed By: #### L [id number] ####[facility] ([facility])[address] [place] [address] PLATELETS (10*3/UL) IN BLOOD AUTOMATED COUNT 141 10*3/uL Low 150-400 [facility] Comment on above: Performed By: #### L [id number] ####[facility] ([facility] [place])[address] [place] [address] RBC (Bld) [#/Vol] 4.25 10*6/uL Normal 4.20-5.70 [facility] Comment on above: Performed By: #### L [id number] ####[facility] ([facility])[address] [place] [address] WBC (Bld) [#/Vol] 6.40 10*3/uL Normal 4.00-10.60 [facility] Comment on above: Performed By: #### L [id number] ####[facility] ([facility])[address] [place] [address] LIPID PANELon 01-28-2023 CHOL/HDL 3.7 mg/dL Normal [facility] Comment on above: Performed By: #### L [id number] #### [facility] ([facility] [place] [address] [facility] [place] [address] Cholesterol [Mass/Vol] 111 mg/dL Low 120-200 [facility] Comment on above: Performed By: #### L [id number] #### [facility] ([facility] [address] [facility] [place] [address] Magnesium [Mass/Vol] 172 mg/dL High 40-149 [facility] Comment on above: Result Comment: TRIG LYCERIDE REFERENCE RANGE: 20 YEARS AND OLDER CARDIOVASCULAR RISK LESS THAN 150 mg/dL LOW RISK 150 TO 199 mg/dL BORDERLINE RISK 200 mg/dL AND GREATER HIGH RISK Performed By: #### L [id number] #### [facility] ([facility] [place] [address] [facility] [place] [place] [address] Magnesium [Mass/Vol] 47 mg/dL Normal 0-160 [facility] Comment on above: Performed By: #### L [id number] #### [facility] ([facility]) [address] [facility] [place] [address] Magnesium [Mass/Vol] 30 mg/dL Normal 23-92 [facility] Comment on above: Performed By: #### L [id number] #### [facility] ([facility]) [address] [facility] [place] [address] NON HDL CHOL. (LDL+VLDL) 81 Normal [facility] Comment on above: Performed By: #### L [id number] #### [facility] ([facility]) [address] [facility] [place] [address] TOTAL VLDL-C 34 mg/dL Normal 0-40 [facility] Comment on above: Performed By: #### L [id number] #### [facility] ([facility] [place] [address] [place] [address] Orders Onlyon 01-28-2023 Orders Only [id number] Lani Lizama 1950 M Date Provider Department Center 01/28/2023 MARGOT PAUL [facility] Family History Problem Relation Age of Onset Heart attack Mother Other Father Other Brother Heart attack Maternal Grandmother Heart attack Maternal Grandfather Family Status - Relation Status Age at Mother Father Brother Maternal Grandmother Maternal Grandfather Normal [facility] POCT GLUCOSE METER UNSOLICIT ED RESULTSon 01-28-2023 Glucose [Mass/Vol] 155 mg/dL High 70-105 [facility] Comment on above: Order Comment: Waive d Testing in the ED is performed under the ED CLIA certificate #[id number]. Result Comment: [email or web address] Performed By: #### L [id number] ####[facility] ([facility] [place] [place] [address] Glucose [Mass/Vol] 151 mg/dL High 70-105 [facility] Comment on above: Order Comment: Waive d Testing in the ED is performed under the ED CLIA certificate #[id number]. Result Comment: [email or web address] Performed By: #### L [id number] ####[facility] ([facility] [place] [place] [address] Glucose [Mass/Vol] 133 mg/dL High 70-105 [facility] Comment on above: Order Comment: Waive d Testing in the ED is performed under the ED CLIA certificate #[id number]. Result Comment: [email or web address] Performed By: #### L [id number] #### [facility] ([facility]) [address] [place] [address] 30on 01-27-2023 30 The patient is Moder ately Stable - Low risk of patient condition declining or worsening The patient's goals for the shift include Comfort The clinical goals for the shift include VSS, safety Problem: Pain - Adult Goal: Verbalizes/displays adequate comfort level or baseline comfort level Outcome: Progressing Flowsheets (Taken 01/27/2023711) Verbalizes/displays adequate comfort level or baseline comfort level: Encourage patient to monitor pain and request assistance Problem: Safety - Adult Goal: Free from fall injury Outcome: Progressing Problem: Discharge Planning Goal: Discharge to home or other facility with appropriate resources Outcome: Progressing Flowsheets (Taken 01/27/2023711) Discharge to home or other facility with appropriate resources: Identify barriers to discharge with patient and caregiver Normal [facility] APTTon 01-27-2023 ACTIVATED PARTIAL THROMBOPLASTIN TIME IN PPP BY COAGULATION ASSAY 113.7 Seconds High 25.0-35.0 [facility] Comment on above: Result Comment: Clin ical significance of the APTT is questionable in the presence of heparin. Performed By: #### L [id number] ####[facility] ([facility])[address] [place] [address] BASIC METABOLIC PANELon 12-31 Anion gap [Moles/Vol] 13 mmol/L Normal 7-20 [facility] Comment on above: Performed By: #### L [id number] ####[facility] ([facility])[address] [place] [address] Calcium [Mass/Vol] 9.4 mg/dL Normal 8.6-10.3 [facility] Comment on above: Performed By: #### L [id number] ####[facility] ([facility] [place] [place] [address] Chloride [Moles/Vol] 106 mmol/L Normal 98-107 [facility] Comment on above: Performed By: #### L [id number] ####[facility] ([facility] [place] [place] [address] CO2 [Moles/Vol] 26 mmol/L Normal 21-31 [facility] Comment on above: Performed By: #### L [id number] ####[facility] ([facility])[address] [place] [address] Creatinine [Mass/Vol] 1.71 mg/dL High 0.70-1.30 [facility] Comment on above: Performed By: #### L [id number] ####[facility] ([facility])[address] [place] [address] GLOMERULAR FILTRATION RATE ML/MIN/1.73 SQ M.PREDICTED 42.3 mL/min/1.73m*2 Low >60.0 [facility] Comment on above: Result Comment: The [facility]???s estimated glomerular filtration rate (eGFR) will no longer include consideration of race in its calculation. The National Kidney Foundation???s eGFR Task Force developed new recommendations for the estimation of the glomerular filtration rate in the [place] They recommend immediate implementation of the new equation refit without the race variable in all laboratories because the calculation does not include race. In addition to not including race in the calculation and reporting, it included diversity in its development, and has acceptable performance characteristics and potential consequences that do not disproportionately affect any one group of individuals. Performed By: #### L [id number] ####[facility] ([facility])[address] [place] [address] Glucose [Mass/Vol] 155 mg/dL High 70-100 [facility] Comment on above: Performed By: #### L [id number] ####[facility] ([facility])[address] [place] [address] Potassium [Moles/Vol] 4.1 mmol/L Normal 3.5-5.1 [facility] Comment on above: Performed By: #### L [id number] ####[facility] ([facility])[address] [place] [address] Sodium [Moles/Vol] 141 mmol/L Normal 136-145 [facility] Comment on above: Performed By: #### L [id number] ####[facility] ([facility])[address] [place] [address] Urea nitrogen [Mass/Vol] 31 mg/dL High 7-25 [facility] Comment on above: Performed By: #### L [id number] ####[facility] ([facility])[address] [place] [address] UREA NITROGEN/CREATININE (MASS RATIO) IN SER/PLAS 18.1 [facility] Comment on above: Performed By: #### L [id number] ####[facility] ([facility])[address] [place] [address] POCT GLUCOSE METER UNSOLICIT ED RESULTSon 01-27-2023 Glucose [Mass/Vol] 145 mg/dL High 70-105 [facility] Comment on above: Order Comment: Waive d Testing in the ED is performed under the ED CLIA certificate #[id number]. Result Comment: [email or web address] Performed By: #### L [id number] ####[facility] ([facility])[address] [place] [address] Glucose [Mass/Vol] 195 mg/dL High 70-105 [facility] Comment on above: Order Comment: Waive d Testing in the ED is performed under the ED CLIA certificate #[id number]. Result Comment: [email or web address] Performed By: #### L [id number] ####[facility] ([facility])[address] [place] [address] 30on 01-26-2023 30 The patient is Moder ately Stable - Low risk of patient condition declining or worsening The patient's goals for the shift include comfort The clinical goals for the shift include VSS, safety Problem: Safety - Adult Goal: Free from fall injury Outcome: Progressing Flowsheets (Taken 01/26/20231999) Free from fall injury: Assess patient frequently for physical needs [facility] 30 The patient is Moder ately Stable - Low risk of patient condition declining or worsening The patient's goals for the shift include Comfort The clinical goals for the shift include VSS, safety Problem: Pain - Adult Goal: Verbalizes/displays adequate comfort level or baseline comfort level Outcome: Progressing Flowsheets (Taken 01/26/2023 0710) Verbalizes/displays adequate comfort level or baseline comfort level: Encourage patient to monitor pain and request assistance Problem: Safety - Adult Goal: Free from fall injury Outcome: Progressing Problem: Discharge Planning Goal: Discharge to home or other facility with appropriate resources Outcome: Progressing Flowsheets (Taken 01/26/2023 0714) Discharge to home or other facility with appropriate resources: Identify barriers to discharge with patient and caregiver Normal [facility] 30 The patient is Moder ately Stable - Low risk of patient condition declining or worsening The patient's goals for the shift include rest The clinical goals for the shift include VSS, cath site stable Normal [facility] APTTon 01-26-2023 ACTIVATED PARTIAL THROMBOPLASTIN TIME IN PPP BY COAGULATION ASSAY 80.8 Seconds High 25.0-35.0 [facility] Comment on above: Result Comment: Clin ical significance of the APTT is questionable in the presence of heparin. Performed By: #### L [id number] #### [facility] ([facility]) [address] [place] [address] ACTIVATED PARTIAL THROMBOPLASTIN TIME IN PPP BY COAGULATION ASSAY 30.4 Seconds Normal 25.0-35.0 [facility] Comment on above: Order Comment: Check aPTT every 6 hours while on heparin infusion, or per protocol. Result Comment: Clin ical significance of the APTT is questionable in the presence of heparin. Performed By: #### L [id number] #### [facility] ([facility] [address] [place] [address] ACTIVATED PARTIAL THROMBOPLASTIN TIME IN PPP BY COAGULATION ASSAY 30.3 Seconds Normal 25.0-35.0 [facility] Comment on above: Order Comment: Check aPTT every 6 hours while on heparin infusion, or per protocol. Result Comment: Clin ical significance of the APTT is questionable in the presence of heparin. Performed By: #### L [id number] #### [facility] ([facility] [address] [place] [address] BASIC METABOLIC PANELon - Anion gap [Moles/Vol] 13 mmol/L Normal 7-20 [facility] Comment on above: Performed By: #### L [id number] #### [facility] ([facility]) [address] [place] [address] Calcium [Mass/Vol] 9.1 mg/dL Normal 8.6-10.3 [facility] Comment on above: Performed By: #### L [id number] #### [facility] ([facility]) [address] [place] [address] Chloride [Moles/Vol] 107 mmol/L Normal 98-107 [facility] Comment on above: Performed By: #### L [id number] #### [facility] ([facility]) [address] [place] [address] CO2 [Moles/Vol] 22 mmol/L Normal 21-31 [facility] Comment on above: Performed By: #### L [id number] #### [facility] ([facility]) [address] [place] [address] Creatinine [Mass/Vol] 1.77 mg/dL High 0.70-1.30 [facility] Comment on above: Performed By: #### L [id number] #### [facility] ([facility]) [address] [place] [address] GLOMERULAR FILTRATION RATE ML/MIN/1.73 SQ M.PREDICTED 40.6 mL/min/1.73m*2 Low >60.0 [facility] Comment on above: Result Comment: The [facility]???s estimated glomerular filtration rate (eGFR) will no longer include consideration of race in its calculation. The National Kidney Foundation???s eGFR Task Force developed new recommendations for the estimation of the glomerular filtration rate in the [place] They recommend immediate implementation of the new equation refit without the race variable in all laboratories because the calculation does not include race. In addition to not including race in the calculation and reporting, it included diversity in its development, and has acceptable performance characteristics and potential consequences that do not disproportionately affect any one group of individuals. Performed By: #### L [id number] #### [facility] ([facility]) [address] [place] [address] Glucose [Mass/Vol] 125 mg/dL High 70-100 [facility] Comment on above: Performed By: #### L [id number] #### [facility] ([facility] [place]) [address] [place] [address] Potassium [Moles/Vol] 4.2 mmol/L Normal 3.5-5.1 [facility] Comment on above: Performed By: #### L [id number] #### [facility] ([facility]) [address] [place] [address] Sodium [Moles/Vol] 138 mmol/L Normal 136-145 [facility] Comment on above: Performed By: #### L [id number] #### [facility] ([facility] [place]) [address] [place] [address] Urea nitrogen [Mass/Vol] 27 mg/dL High 7-25 [facility] Comment on above: Performed By: #### L [id number] #### [facility] ([facility] [place]) [address] [place] [address] UREA NITROGEN/CREATININE (MASS RATIO) IN SER/PLAS 15.3 Normal [facility] Comment on above: Performed By: #### L [id number] #### [facility] ([facility] [place]) [address] [place] [address] CBCon 01-26-2023 Erythrocyte distribution width (RBC) [Ratio] 13.2 % Normal 11.5-15.0 [facility] Comment on above: Performed By: #### L [id number] #### [facility] ([facility] [place]) [address] [place] [address] ERYTHROCYTE MEAN CORPUSCULAR HEMOGLOBIN CONCENTRATION (G/DL) BY AUTOMATED 34.3 g/dL Normal 32.0-35.0 [facility] Comment on above: Performed By: #### L [id number] #### [facility] ([facility]) [address] [place] [address] Hematocrit (Bld) [Volume fraction] 42.0 % Normal 39.0-55.0 [facility] Comment on above: Performed By: #### L [id number] #### [facility] ([facility]) [address] [place] [address] Hemoglobin (Bld) [Mass/Vol] 14.4 g/dL Normal 13.0-17.0 [facility] Comment on above: Performed By: #### L [id number] #### [facility] ([facility]) [address] [place] [address] MCH (RBC) [Entitic mass] 31.0 pg Normal 27.0-33.0 [facility] Comment on above: Performed By: #### L [id number] #### [facility] ([facility]) [address] [place] [address] MCV (RBC) [Entitic vol] 90.3 fL Normal 82.0-98.0 [facility] Comment on above: Performed By: #### L [id number] #### [facility] ([facility]) [address] [place] [address] PLATELETS (10*3/UL) IN BLOOD AUTOMATED COUNT 163 10*3/uL Normal 150-400 [facility] Comment on above: Performed By: #### L [id number] #### [facility] ([facility]) [address] [place] [address] RBC (Bld) [#/Vol] 4.65 10*6/uL Normal 4.20-5.70 [facility] Comment on above: Performed By: #### L [id number] #### [facility] ([facility]) [address] [place] [address] WBC (Bld) [#/Vol] 8.72 10*3/uL Normal 4.00-10.60 [facility] Comment on above: Performed By: #### L [id number] #### [facility] ([facility]) [address] [place] [address] POCT GLUCOSE METER UNSOLICIT ED RESULTSon 01-26-2023 Glucose [Mass/Vol] 155 mg/dL High 70-105 [facility] Comment on above: Order Comment: Waive d Testing in the ED is performed under the ED CLIA certificate #[id number]. Result Comment: [email or web address] Performed By: #### L [id number] ####[facility] ([facility])[address] [place] [address] Glucose [Mass/Vol] 120 mg/dL High 70-105 [facility] Comment on above: Order Comment: Waive d Testing in the ED is performed under the ED CLIA certificate #[id number]. Result Comment: [email or web address] Performed By: #### L [id number] #### [facility] ([facility]) [address] [place] [address] Glucose [Mass/Vol] 155 mg/dL High 70-105 [facility] Comment on above: Order Comment: Waive d Testing in the ED is performed under the ED CLIA certificate #[id number]. Result Comment: [email or web address] Performed By: #### L [id number] ####[facility] ([facility] [place] [place] [address] 30on 01-25-2023 30 The patient is Moder ately Stable - Low risk of patient condition declining or worsening The patient's goals for the shift include Comfort The clinical goals for the shift include stable vitals Problem: Pain - Adult Goal: Verbalizes/displays adequate comfort level or baseline comfort level Outcome: Progressing Flowsheets (Taken 01/25/2023 1214) Verbalizes/displays adequate comfort level or baseline comfort level: Encourage patient to monitor pain and request assistance Problem: Safety - Adult Goal: Free from fall injury Outcome: Progressing Problem: Discharge Planning Goal: Discharge to home or other facility with appropriate resources Outcome: Progressing Flowsheets (Taken 01/25/2023 1248) Discharge to home or other facility with appropriate resources: Identify barriers to discharge with patient and caregiver Normal [facility] ANTI-XA (HEPARIN LEVEL)on HEPARIN UNFRACTIONATED (U/ML) IN PPP BY CHROMOGENIC METHOD 0.88 IU/mL High 0.3-0.7 [facility] Comment on above: Order Comment: Anti- Xa (Heparin level) added per protocol. Result Comment: [place] roxaban and Apixaban will interfere with the anti Xa assay used to monitor UFH and LMWH. Performed By: #### L [id number] ####[facility] ([facility] [place] [place] [address] APTTon 01-25-2023 ACTIVATED PARTIAL THROMBOPLASTIN TIME IN PPP BY COAGULATION ASSAY 153.8 Seconds Critically high 25.0-35.0 [facility] Comment on above: Order Comment: Check aPTT every 6 hours while on heparin infusion, or per protocol. Result Comment: Clin ical significance of the APTT is questionable in the presence of heparin. Performed By: #### L [id number] #### [facility] ([facility]) [address] [place] [address] B-TYPE NATRIURETIC PEPTIDEon 01-25-2023 Natriuretic peptide B (Bld) [Mass/Vol] 579 pg/mL High 0-100 [facility] Comment on above: Performed By: #### L [id number] ####[facility] ([facility] [place] [address] BASIC METABOLIC PANELon 12-31 Anion gap [Moles/Vol] 15 mmol/L Normal 7-20 [facility] Comment on above: Performed By: #### L [id number] #### [facility] ([facility]) [address] [place] [address] Calcium [Mass/Vol] 9.6 mg/dL Normal 8.6-10.3 [facility] Comment on above: Performed By: #### L [id number] #### [facility] ([facility]) [address] [place] [address] Chloride [Moles/Vol] 103 mmol/L Normal 98-107 [facility] Comment on above: Performed By: #### L [id number] #### [facility] ([facility] [place] [address] [place] [address] CO2 [Moles/Vol] 27 mmol/L Normal 21-31 [facility] Comment on above: Performed By: #### L [id number] #### [facility] ([facility] [place]) [address] [place] [address] Creatinine [Mass/Vol] 1.83 mg/dL High 0.70-1.30 [facility] Comment on above: Performed By: #### L [id number] #### [facility] ([facility] [address] [place] [address] GLOMERULAR FILTRATION RATE ML/MIN/1.73 SQ M.PREDICTED 39.0 mL/min/1.73m*2 Low >60.0 [facility] Comment on above: Result Comment: The [facility]???s estimated glomerular filtration rate (eGFR) will no longer include consideration of race in its calculation. The National Kidney Foundation???s eGFR Task Force developed new recommendations for the estimation of the glomerular filtration rate in the [place] They recommend immediate implementation of the new equation refit without the race variable in all laboratories because the calculation does not include race. In addition to not including race in the calculation and reporting, it included diversity in its development, and has acceptable performance characteristics and potential consequences that do not disproportionately affect any one group of individuals. Performed By: #### L [id number] #### [facility] ([facility]) [address] [place] [address] Glucose [Mass/Vol] 168 mg/dL High 70-100 [facility] Comment on above: Performed By: #### L [id number] #### [facility] ([facility]) [address] [place] [address] Potassium [Moles/Vol] 4.7 mmol/L Normal 3.5-5.1 [facility] Comment on above: Performed By: #### L [id number] #### [facility] ([facility]) [address] [place] [address] Sodium [Moles/Vol] 140 mmol/L Normal 136-145 [facility] Comment on above: Performed By: #### L [id number] #### [facility] ([facility] [address] [facility] [place] [address] Urea nitrogen [Mass/Vol] 28 mg/dL High 7-25 [facility] Comment on above: Performed By: #### L [id number] #### [facility] ([facility] [address] [place] [place] [address] UREA NITROGEN/CREATININE (MASS RATIO) IN SER/PLAS 15.3 Normal [facility] Comment on above: Performed By: #### L [id number] #### [facility] ([facility]) [address] [place] [address] CBCon 01-25-2023 Erythrocyte distribution width (RBC) [Ratio] 13.1 % Normal 11.5-15.0 [facility] Comment on above: Performed By: #### L [id number] ####[facility] ([facility])[address] [place] [address] ERYTHROCYTE MEAN CORPUSCULAR HEMOGLOBIN CONCENTRATION (G/DL) BY AUTOMATED 33.7 g/dL Normal 32.0-35.0 [facility] Comment on above: Performed By: #### L [id number] ####[facility] ([facility])[address] [place] [address] Hematocrit (Bld) [Volume fraction] 46.3 % Normal 39.0-55.0 [facility] Comment on above: Performed By: #### L [id number] ####[facility] ([facility])[address] [place] [address] Hemoglobin (Bld) [Mass/Vol] 15.6 g/dL Normal 13.0-17.0 [facility] Comment on above: Performed By: #### L [id number] ####[facility] ([facility])[address] [place] [address] MCH (RBC) [Entitic mass] 30.7 pg Normal 27.0-33.0 [facility] Comment on above: Performed By: #### L [id number] ####[facility] ([facility] [place])[address] [place] [address] MCV (RBC) [Entitic vol] 91.1 fL Normal 82.0-98.0 [facility] Comment on above: Performed By: #### L [id number] ####[facility] ([facility] [place])[address] [place] [address] PLATELETS (10*3/UL) IN BLOOD AUTOMATED COUNT 185 10*3/uL Normal 150-400 [facility] Comment on above: Performed By: #### L [id number] ####[facility] ([place])[address] [place] [address] RBC (Bld) [#/Vol] 5.08 10*6/uL Normal 4.20-5.70 [facility] Comment on above: Performed By: #### L [id number] ####[facility] ([facility])[address] [place] [address] WBC (Bld) [#/Vol] 8.91 10*3/uL Normal 4.00-10.60 [facility] Comment on above: Performed By: #### L [id number] ####[facility] ([place])[address] [place] [address] CONSULTon 01-25-2023 CONSULT ------ -- Attestation signed by Christian Bergman MD at 01/25/2023 5:35 PM I personally saw and examined the patient on the same date of service as resident/fellow Dr. Armstrong. I discussed the findings and therapeutic plan with the resident/fellow . I agree with the documentation, except for any edits/updates below. Teaching Physician's Revisions: Cardiac catheterization revealed stable CAD 4/4 bypass grafts are patent although with multiple stents and diffuse disease There is possible occlusion 8A distal jump segment of the SVG to diagonal We recommend anticoagulation and medical therapy Can use heparin for 2 to 3 days and then transition to Eliquis 5 twice daily Continue Plavix for CAD with stents Discontinue aspirin after 2 to 3 days Optimize HFrEF medications Try to start Entresto Consult EP for BiV/ICD upgrade since he has a EF 10% -- Cardiology Consult Note Reason for Consult: NSTEMI HPI: Lani Lizaam is a 72 y.o. male was a direct transfer from [facility], the patient is known to have coronary artery disease s/p CABG and multiple PCI in the past, PAD, hyperlipidemia, hypertension. The patient has been having worsening chest pain for the last 2 months which got much worse yesterday, the patient went to the ER his troponin was positive he was referred for further evaluation management the patient had coronary angiography and December 2021 showed patent LAD/MENJIVAR graft, patent SVG to OM and PDA. his most recent echo showed LVEF 45 to 50%. The patient currently is free of chest pain denies nausea vomiting diuresis or shortness of breath. Cardiology ROS: GENERAL: Denies fever, chills, night sweats, weight loss. CARDIOVASCULAR: Insurance RESPIRATORY: Denies SOB, coughing, wheezing GI: Denies abdominal pain, nausea/vomiting. PSYCH: Denies anxiety. Past Medical History He has a past medical history of Carotid artery stenosis, Coronary artery disease, Diabetes mellitus ([facility]), Hyperlipidemia, Hypertension, PVD (peripheral vascular disease) ([facility]), and Third degree heart block ([facility]). Surgical History He has a past surgical history that includes Cardiac catheterization (07/12/2020); Cardiac catheterization (10/15/2018); Cardiac catheterization (02/24/2018); Cardiac catheterization (09/27/2015); Coronary stent placement; and Coronary artery bypass graft. Social History He reports that he has quit smoking. His smoking use included cigarettes. He has never used smokeless tobacco. He reports that he does not drink alcohol and does not use drugs. Family History Family History Problem Relation Name Age of Onset Heart attack Mother Other (malignant neoplastic disease) Father Other (malignant neoplastic disease) Brother Heart attack Maternal Grandmother Heart attack Maternal Grandfather Allergies Patient has no known allergies. Medications Medications Prior to Admission Medication Sig Dispense Refill Last Dose ALPRAZolam (Xanax) 0.5 mg tablet Take 1 tablet by mouth in the morning, afternoon, and at bedtime. aspirin 81 mg chewable tablet Chew 1 tablet every day by oral route. bumetanide (Bumex) 0.5 mg tablet Take 1 tablet (0.5 mg) by mouth in the morning. 90 tablet 3 01/24/2023 carvedilol (Coreg) 12.5 mg tablet Take 1 tablet (12.5 mg) by mouth with breakfast and with evening meal. 180 tablet 3 clopidogrel (Plavix) 75 mg tablet Take 1 tablet by mouth in the morning. empagliflozin (Jardiance) 10 mg Take 1 tablet every day by oral route. famotidine (Pepcid) 40 mg tablet Take 40 mg by mouth in the morning. HYDROcodone-acetaminophen (Metamora) 5-325 mg tablet TAKE 1 TABLET BY MOUTH EVERY 4 TO 6 HOURS NEEDED FOR PAIN insulin aspart (NovoLOG) 100 unit/mL injection Inject under the skin 1 (one) time. insulin detemir (Levemir) 100 unit/mL injection Inject under the skin in the morning and at bedtime. isosorbide mononitrate ER (Imdur) 60 mg 24 hr tablet Take 30 tablets by mouth in the morning and at bedtime. lisinopril 2.5 mg tablet Take 1 tablet (2.5 mg) by mouth in the morning. 90 tablet 3 lisinopril 5 mg tablet Take 1 tablet (5 mg) by mouth in the morning. 90 tablet 3 lovastatin (Mevacor) 40 mg tablet in the evening. multivitamin capsule Take 1 capsule by mouth in the morning. nitroglycerin (Nitrostat) 0.[address] 1 TABLET UNDER TONGUE EVERY 5 MINS, UP TO 3 DOSES NEEDED FOR CHEST PAIN 90 tablet 2 pantoprazole (ProtoNix) 40 mg EC tablet TAKE 1 TABLET BY MOUTH DAILY ON AN EMPTY STOMACH FOLLOWED BY BREAKFAST 30 MINUTES AFTER 01/24/2023 potassium chloride CR (Klor-Con) 10 mEq ER tablet Take 1 tablet (10 mEq) by mouth in the morning. 90 tablet 3 Past Week Last Recorded Vitals Patient Vitals for the past 24 hrs: BP Pulse Resp SpO2 Height Weight 01/25/23 1214 138/71 93 10 (more content not included)... [facility] reviewed. The jaron mark was examined and there are no changes to the H&P. 72 y.o. male was a direct transfer from [facility], the patient is known to have Coronary artery disease s/p CABG and multiple PCI in the past, PAD, hyperlipidemia, hypertension. The patient has been having worsening chest pain for the last 2 months which got much worse yesterday, the patient went to the ER his troponin was positive he was referred for further evaluation management to [facility]. The patient had coronary angiography and December 2021 showed patent LAD/MENJIVAR graft, patent SVG to OM and PDA. Patient will undergo LHC to evaluate CAD and look for patency of grafts and previously placed stents. Risks and benefits were discussed in detail with patient and agreed to proceed. Normal [facility] PLATELET COUNTon 01-25-2023 PLATELETS (10*3/UL) IN BLOOD AUTOMATED COUNT 183 10*3/uL Normal 150-400 [facility] Comment on above: Performed By: #### L [id number] #### [facility] ([employer] [facility]) [address] [place] [address] POCT GLUCOSE METER UNSOLICIT ED RESULTSon 01-25-2023 Glucose [Mass/Vol] 211 mg/dL High 70-105 [facility] Comment on above: Order Comment: Waive d Testing in the ED is performed under the ED CLIA certificate #[id number]. Result Comment: [email or web address] [email or web address] Performed By: #### L [id number] ####[facility] ([facility])[address] [place] [address] Glucose [Mass/Vol] 143 mg/dL High 70-105 [facility] Comment on above: Order Comment: Waive d Testing in the ED is performed under the ED CLIA certificate #[id number]. Result Comment: [email or web address] Performed By: #### L [id number] ####[facility] ([facility])[address] [place] [address] TROPONIN Ion 01-25-2023 Troponin I.cardiac [Mass/Vol] 1.75 ng/mL Critically high 0.00-0.04 [facility] Comment on above: Result Comment: M-TR OPONIN INITIAL CRITICAL HIGH; RESPUN AND RETESTED Performed By: #### L [id number] #### [facility] ([facility]) [address] [place] [address] Office Visiton 01-17-2023 Follow-up visit [id number] Lani Lizama 1950 M Date Provider Department Center 01/17/2023 CaroZABRINANOVAPINKY ALTAMIRANO MARCELINO [facility] Family History Problem Relation Age of Onset Heart attack Mother Other Father Other Brother Heart attack Maternal Grandmother Heart attack Maternal Grandfather Family Status - Relation Status Age at Mother Father Brother Maternal Grandmother Maternal Grandfather Level of Service:05614 MD OFFICE/OUTPATIENT ESTABLISHED MOD MDM 30-39 MIN Normal [facility] Office Visiton 10-09-2022 Follow-up visit [id number] Lani Lizama 1950 M Date Provider Department Center 10/09/2022 [id number] BRADY MARCELINO [facility] Family History Problem Relation Age of Onset Heart attack Mother Other Father Other Brother Heart attack Maternal Grandmother Heart attack Maternal Grandfather Family Status - Relation Status Age at Mother Father Brother Maternal Grandmother Maternal Grandfather Level of Service:11645 MD OFFICE/OUTPATIENT ESTABLISHED MOD MDM 30-39 MIN Normal [facility] CT CHEST WO CONon 08-09-2022 CT CHEST WO CON EXAMINATION: CT CHES T WO CON HISTORY: Lung field abnormal to COMPARISON: 06/05/2022 TECHNIQUE: CT examination of the chest without IV contrast. Coronal and sagittal reformations were performed. Dose reduction techniques were achieved by using automated exposure control and/or adjustment of mA and/or kV according to patient size and/or use of iterative reconstruction technique. FINDINGS: Lungs: No pneumothorax or effusion. Interval decrease in the groundglass nodular opacities without significant change in the reticular opacities, predominantly seen in the right upper and middle lobes. Findings are likely sequela of prior infection. Previously noted 0.6 cm nodule in the right middle lobe is likely a confluence of scarring. No new suspicious pulmonary nodule or consolidation. Airways: Normal. Mediastinum: No adenopathy. Aorta: No aneurysm. Cardiac: Normal size. No pericardial effusion. Median sternotomy wires are in place. There is a left-sided AICD with distal leads within the right atrium and right ventricle. Pulmonary vasculature: Normal morphology. Bones: No acute bony abnormality. Axilla: No adenopathy. Thyroid gland: No abnormality demonstrated on provided imaging. Soft tissues: Unremarkable. Upper abdomen: Unremarkable. Other findings: None. IMPRESSION: Interval decrease in the groundglass nodular opacities without significant change in the reticular opacities, predominantly seen in the right upper and middle lobes. Findings are likely sequela of prior infection. Previously noted 0.6 cm nodule in the right middle lobe is likely a confluence of scarring. No new suspicious pulmonary nodule or consolidation. Electronically authenticated by: HAZEL SCHILLING Date: 2022-08-09 14:00 Normal [facility] Office Visiton 07-24-2022 Follow-up visit [id number] Lani Lizama 1950 M Date Provider Department Center 07/24/2022 [id number] SOARES [facility] Family History Problem Relation Age of Onset Heart attack Mother Other Father Other Brother Heart attack Maternal Grandmother Heart attack Maternal Grandfather Family Status - Relation Status Age at Mother Father Brother Maternal Grandmother Maternal Grandfather Level of Service:38174 MD OFFICE/OUTPATIENT ESTABLISHED MOD MDM 30-39 MIN Reason for Visit and Comments: Hypertension [810760] Coronary Artery Disease [187] Normal [facility] A1C HEMOGLOBINon 06-26-2022 HbA1c (Bld) [Mass fraction] 7.4 % [employer] Other Glucose - FINGER STICKon Glucose [Mass/Vol] 267 mg/dL [employer] Other HbA1c (Bld) [Mass fraction]o n 06-26-2022 A1C HEMOGLOBIN [facility] Other PTH INTACTon 06-26-2022 PTH, Intact 37 pg/mL Normal 15-65 [facility] Comment on above: Performed By: #### C MP, CMADM #### [facility] [address] [place] [address] Dr. Mirza Sadler 37on 06-25-2022 37 -Increase Carvedilol to 12.5 mg twice a day. Take two pills of current medication, -Check blood pressure at least once a day and bring log to follow-up -Bring blood pressure monitor to follow-up appointment Normal [facility] FERRITINon 06-25-2022 Ferritin [Mass/Vol] 269.0 ng/mL Normal 26.0-388.0 [facility] Comment on above: Performed By: #### B TECHNICAL ACCOUNT MANAGER #### [facility] [address] [place] [address] Dr. Mirza Sadler HEMOGRAM AND PLATELon 2022 Hematocrit (Bld) [Volume fraction] 44.7 % Normal 42.0-54.0 [facility] Comment on above: Performed By: #### P T, PTT #### [facility] [address] [place] [address] Dr. Mirza Sadler Hemoglobin (Bld) [Mass/Vol] 15.1 g/dL Normal 14.0-18.0 [facility] Comment on above: Performed By: #### P T, PTT #### [facility] [address] [place] [address] Dr. Mirza Sadler MCH (RBC) [Entitic mass] 30.0 pg Normal 25.9-34.0 [facility] Comment on above: Performed By: #### P T, PTT #### [facility] [address] [place] [address] Dr. Mirza Sadler MCHC (RBC) [Mass/Vol] 33.8 g/dL Normal 29.9-35.2 [facility] Comment on above: Performed By: #### P T, PTT #### [facility] [address] [place] [address] Dr. Mirza Sadler MCV (RBC) [Entitic vol] 88.9 fL Normal 80.0-94.0 [facility] Comment on above: Performed By: #### P T, PTT #### [facility] [address] [place] [address] Dr. Mirza Sadler PLT 199 103/ul Normal 150-450 [facility] Comment on above: Performed By: #### P T, PTT #### [facility] [address] [place] [address] Dr. Mirza Sadler RBC 5.03 106/ul Normal 4.70-6.10 [facility] Comment on above: Performed By: #### P T, PTT #### [facility] [address] [address] [address] Mirza Sadler WBC 8.7 103/ul Normal 4.0-11.0 [facility] Comment on above: Performed By: #### P T, PTT #### [facility] [address] [address] [address] Mirza Sadler IRON AND TIBCon 06-25-2022 % SATURATION 28.6 % Normal [facility] Comment on above: Performed By: #### B TECHNICAL ACCOUNT MANAGER #### [facility] [address] [address] [address] Mirza Sadler Iron [Mass/Vol] 82.0 ug/dL Normal 65.0-175.0 [facility] Comment on above: Performed By: #### B TECHNICAL ACCOUNT MANAGER #### [facility] [address] [address] [address] Mirza Sadler TIBC DIRECT 287.0 ug/dL Normal 250.0-450. 0 [facility] Comment on above: Performed By: #### B TECHNICAL ACCOUNT MANAGER #### [facility] [address] [address] [address] Mirza Sadler MAGNESIUMon 06-25-2022 Magnesium [Mass/Vol] 2.0 mg/dL Normal 1.8-2.4 [facility] Comment on above: Performed By: #### B TECHNICAL ACCOUNT MANAGER #### [facility] [address] [address] [address] Mirza Sadler Office Visiton 06-25-2022 Follow-up visit [id number] Lani Lizama 1950 M Date Provider Department Center 06/25/2022 DEISY SCHWARTZ [facility] Family History Problem Relation Age of Onset Heart attack Mother Other Father Other Brother Heart attack Maternal Grandmother Heart attack Maternal Grandfather Family Status - Relation Status Age at Mother Father Brother Maternal Grandmother Maternal Grandfather Level of Service:28470 MD OFFICE/OUTPATIENT ESTABLISHED MOD MDM 30-39 MIN Reason for Visit and Comments: Chest Pain [121727] Coronary Artery Disease [187] Normal [facility] RENAL FUNCTION PANELon 06-25 Albumin [Mass/Vol] 4.2 g/dL Normal 3.4-5.0 [facility] Comment on above: Performed By: #### B TECHNICAL ACCOUNT MANAGER #### [facility] [address] [address] [address] Mirza Sadler Calcium [Mass/Vol] 9.3 mg/dL Normal 8.5-10.1 [facility] Comment on above: Performed By: #### B TECHNICAL ACCOUNT MANAGER #### [facility] [address] [address] [address] Mirza Sadler Chloride [Moles/Vol] 108 mmol/L Critically high 98-107 [facility] Comment on above: Performed By: #### B TECHNICAL ACCOUNT MANAGER #### [facility] [address] [place] [address] Dr. Mirza Sadler CO2 [Moles/Vol] 29.5 mmol/L Normal 21.0-32.0 [facility] Comment on above: Performed By: #### B TECHNICAL ACCOUNT MANAGER #### [facility] [address] [place] [address] Dr. Mirza Sadler Creatinine [Mass/Vol] 1.87 mg/dL Critically high 0.70-1.30 [facility] Comment on above: Performed By: #### B TECHNICAL ACCOUNT MANAGER #### [facility] [address] [place] [address] Dr. Mirza Sadler EGFR-AF ETHIOPIAN 43 mL/min/1.73m2 Critically low >=60 [facility] Comment on above: Performed By: #### B TECHNICAL ACCOUNT MANAGER #### [facility] [address] [place] [address] Dr. Mirza Sadler EGFR-NON AF ETHIOPIAN 36 mL/min/1.73m2 Critically low >=60 [facility] Comment on above: Performed By: #### B TECHNICAL ACCOUNT MANAGER #### [facility] [address] [place] [address] Dr. Mirza Sadler Glucose [Mass/Vol] 181 mg/dL Critically high 74-106 [facility] Comment on above: Performed By: #### B TECHNICAL ACCOUNT MANAGER #### [facility] [address] [place] [address] Dr. Mirza Sadler Phosphate [Mass/Vol] 4.8 mg/dL Critically high 2.6-4.7 [facility] Comment on above: Performed By: #### B TECHNICAL ACCOUNT MANAGER #### [facility] [address] [place] [address] Dr. Mirza Sadler Potassium [Moles/Vol] 4.8 mmol/L Normal 3.5-5.1 [facility] Comment on above: Performed By: #### B TECHNICAL ACCOUNT MANAGER #### [facility] [address] [place] [address] Dr. Mirza Sadler Sodium [Moles/Vol] 146 mmol/L Critically high 136-145 [facility] Comment on above: Performed By: #### B TECHNICAL ACCOUNT MANAGER #### [facility] [address] [place] [address] Dr. Mirza Sadler Urea nitrogen [Mass/Vol] 40.0 mg/dL Critically high 7.0-18.0 [facility] Comment on above: Performed By: #### B TECHNICAL ACCOUNT MANAGER #### [facility] [address] [place] [address] Dr. Mirza Sadler UA RANDOM W/MICROSCOPICon BACTERIA NONE SEEN Normal NONE SEEN [facility] Comment on above: Performed By: #### H STROPN #### [facility] [address] [place] [address] Dr. Mirza Sadler Bilirubin Ql (U) Negative Normal NEGATIVE [facility] Comment on above: Performed By: #### H STROPN #### [facility] [address] [place] [address] Dr. Mirza Sadler CAST NONE SEEN Normal NONE SEEN [facility] Comment on above: Performed By: #### H STROPN #### [facility] [address] [place] [address] Dr. Mirza Sadler Clarity (U) CLEAR Normal CLEAR [facility] Comment on above: Performed By: #### H STROPN #### [facility] [address] [place] [address] Dr. Mirza Sadler Color (U) LT. YELLOW Normal YELLOW [facility] Comment on above: Performed By: #### H STROPN #### [facility] [address] [address] [address] Mirza Sadler Crystals LM Nom (Urine sed) NONE SEEN Normal NONE SEEN [facility] Comment on above: Performed By: #### H STROPN #### [facility] [address] [place] [address] Dr. Mirza Sadler Epithelial cells LM Ql (Urine sed) FEW Abnormal NONE SEEN /RARE [facility] Comment on above: Performed By: #### H STROPN #### [facility] [address] [place] [address] Dr. Mirza Sadler Glucose Ql (U) 500 mg/dl Abnormal NEGATIVE [facility] Comment on above: Performed By: #### H STROPN #### [facility] [address] [place] [address] Dr. Mirza Sadler Hemoglobin Ql (U) Negative Normal NEGATIVE [facility] Comment on above: Performed By: #### H STROPN #### [facility] [address] [place] [address] Dr. Mirza Sadler Ketones Ql (U) Negative Normal NEGATIVE [facility] Comment on above: Performed By: #### H STROPN #### [facility] [address] [place] [address] Dr. Mirza Sadler LEUKOCYTES Negative Normal NEGATIVE [facility] Comment on above: Performed By: #### H STROPN #### [facility] [address] [place] [address] Dr. Mirza Sadler MUCOUS NONE SEEN Normal NONE SEEN [facility] Comment on above: Performed By: #### H STROPN #### [facility] [address] [place] [address] Dr. Mirza Sadler Nitrite Ql (U) Negative Normal NEGATIVE [facility] Comment on above: Performed By: #### H STROPN #### [facility] [address] [place] [address] Dr. Mirza Sadler pH (U) 5.5 [pH] Normal 5-9 [facility] Comment on above: Performed By: #### H STROPN #### [facility] [address] [place] [address] Dr. Mirza Sadler RBC 0-2 Normal 0-2 [facility] Comment on above: Performed By: #### H STROPN #### [facility] [address] [place] [address] Dr. Mirza Sadler SPEC GRAVITY 1.015 Normal 1.005-<=1. 025 [facility] Comment on above: Performed By: #### H STROPN #### [facility] [address] [place] [address] Dr. Mirza Sadler UA PROTEIN Negative Normal NEGATIVE/ TRACE [facility] Comment on above: Performed By: #### H STROPN #### [facility] [address] [place] [address] Dr. Mirza Sadler Urobilinogen Qn (U) 0.2 {Luisito'U}/dL Normal 0.2 - 1. 0 [facility] Comment on above: Performed By: #### H STROPN #### [facility] [address] [place] [address] Dr. Mirza Sadler WBC NONE SEEN Normal NONE SEEN [facility] Comment on above: Performed By: #### H STROPN #### [facility] [address] [place] [address] Dr. Mirza Sadler URIC ACID SERUMon 06-25-2022 Urate [Mass/Vol] 6.1 mg/dL Normal 3.5-7.2 [facility] Comment on above: Performed By: #### B TECHNICAL ACCOUNT MANAGER #### [facility] [address] [place] [address] Dr. Mirza Sadler URINE T PROTEIN CREAT RATIOo n 06-25-2022 Protein (U) [Mass/Vol] 9.7 mg/dL Normal <=12.0 [facility] Comment on above: Performed By: #### C TEGAN MARIN #### [facility] [address] [place] [address] Dr. Mirza Sadler UR PROT CREAT RAT 0.14 Normal [facility] Comment on above: Performed By: #### C TEGAN MARIN #### [facility] [address] [place] [address] Dr. Mirza Sadler URINE CREAT 71.45 mg/dL Normal 20.00-300. 00 [facility] Comment on above: Performed By: #### C TANIA, TEGAN #### [facility] [address] [place] [address] Dr. Mirza Sadler VITAMIN D 25 OHon 06-25-2022 VIT D 25-OH 44.7 ng/mL Normal [facility] Comment on above: Performed By: #### E RUR #### [facility] [address] [place] [address] Dr. Mirza Sadler VIT D RANGES SEE BELOW Normal [facility] Comment on above: Result Comment: <20 ng/mL Vit D deficient 20 - <30 ng/mL Vit D insufficient 30 - 100 ng/mL Vit D sufficient >100 ng/mL Potential Toxicity Performed By: #### E RUR #### [facility] [address] [place] [address] Dr. Mirza Sadler LIPID PROFILEon 06-18-2022 CHOL-HDL RATIO NORM SEE BELOW Normal [facility] Comment on above: Result Comment: 3.3 - 4.4 LOW RISK 4.4 - 7.1 AVERAGE RISK 7.1 - 11.0 MODERATE RISK >11.0 HIGH RISK Performed By: #### H STROPN #### [facility] [address] [place] [address] Dr. Mirza Sadler Cholesterol [Mass/Vol] 136 mg/dL Normal <=200 [facility] Comment on above: Performed By: #### H STROPN #### [facility] [address] [place] [address] Dr. Mirza Sadler Cholesterol in HDL [Mass/Vol] 38 mg/dL Critically low 40-60 [facility] Comment on above: Performed By: #### H STROPN #### [facility] [address] [place] [address] Dr. Mirza Sadler Cholesterol in LDL [Mass/Vol] 69.6 mg/dL Normal [facility] Comment on above: Performed By: #### H STROPN #### [facility] [address] [place] [address] Dr. Mirza Sadler Cholesterol.total/Cho lesterol in HDL [Mass ratio] 3.6 {ratio} Normal [facility] Comment on above: Performed By: #### H STROPN #### [facility] [address] [place], [place] [address] Dr. Mirza Sadler HDL NORMAL > or = 60 mg/dl - LO W CARDIOVASCULAR RISK <40 mg/dl - HIGH CARDIOVASCULAR RISK Normal [facility] Comment on above: Performed By: #### H STROPN #### [facility] [address] [place], [place] [address] Dr. Mirza Sadler LDL CALC NORMAL SEE BELOW Normal [facility] Comment on above: Result Comment: <100 mg/dl OPTIMAL 100 - 129 mg/dl NEAR OR ABOVE OPTIMAL 130 - 159 mg/dl BORDERLINE HIGH 160 - 189 mg/dl HIGH >190 mg/dl VERY HIGH Performed By: #### H STROPN #### [facility] [address] [place], [place] [address] Dr. Mirza Sadler Triglyceride [Mass/Vol] 142 mg/dL Normal <=150 [facility] Comment on above: Performed By: #### H STROPN #### [facility] [address] [place], [place] [address] Dr. Mirza Sadler VLDL CALC 28.4 mg/dL Normal [facility] Comment on above: Performed By: #### H STROPN #### [facility] [address] [place], [place] [address] CHEST WO CONon 06-05-2022 CT CHEST WO CON EXAMINATION: CT CHES T WO CON HISTORY: Lung field abnormal ; abnormal chest x-ray COMPARISON: XR chest 03/22/2022, CT chest 03/02/2022 TECHNIQUE: Axial, Coronal, and Sagittal images were created without the administration of IV contrast material. Dose reduction techniques were achieved by using automated exposure control and/or adjustment of mA and/or kV according to patient size and/or use of iterative reconstruction technique. FINDINGS: LUNGS: Patchy and strandy opacities scattered within the right lung, greatest within right middle lobe. 8 mm spiculated density within lateral middle lobe which is significant smaller than previously seen. Calcified granuloma within the anterior right middle lobe. PLEURA: No mass, effusion, or pneumothorax. VASCULATURE: No abnormality. MIKE: No mass or adenopathy. MEDIASTINUM: No mass or adenopathy. CARDIAC: Marked atherosclerotic coronary artery disease. No pericardial effusion. AORTA: No aneurysm or dissection. CHEST WALL: No mass or axillary adenopathy. BONES: No bone lesion or fracture. LIMITED ABDOMEN: No suspicious findings. Limited images of the upper abdomen. OTHER: Negative. IMPRESSION: 1. Infiltrative appearance within right middle lobe and to lesser extent with right upper and lower lobes; significantly improved. Additional follow-up in 3 months is recommended to document clearing. Electronically authenticated by: HIGINIO FLANAGAN Date: 2022-06-05 16:58 Normal [facility] CT CHEST WO boarding pass Other PROF CHEM 8 (BAS METB)on Anion gap [Moles/Vol] 10.2 mmol/L Normal [facility] Comment on above: Performed By: #### B TECHNICAL ACCOUNT MANAGER #### [facility] [address] [place] [address] Dr. Mirza Sadler Calcium [Mass/Vol] 8.9 mg/dL Normal 8.5-10.1 [facility] Comment on above: Performed By: #### B TECHNICAL ACCOUNT MANAGER #### [facility] [address] [place] [address] [address] Mirza Sadler Chloride [Moles/Vol] 101 mmol/L Normal 98-107 [facility] Comment on above: Performed By: #### B TECHNICAL ACCOUNT MANAGER #### [facility] [address] [place] [address] [address] Mirza Sadler CO2 [Moles/Vol] 31.2 mmol/L Normal 21.0-32.0 [facility] Comment on above: Performed By: #### B TECHNICAL ACCOUNT MANAGER #### [facility] [address] [place] [address] [address] Mirza Sadler Creatinine [Mass/Vol] 1.91 mg/dL Critically high 0.70-1.30 [facility] Comment on above: Performed By: #### B TECHNICAL ACCOUNT MANAGER #### [facility] [address] [place] [address] [address] Mirza Sadler EGFR-AF ETHIOPIAN 42 mL/min/1.73m2 Critically low >=60 [facility] Comment on above: Performed By: #### B TECHNICAL ACCOUNT MANAGER #### [facility] [address] [place] [address] [address] Mirza Sadler EGFR-NON AF ETHIOPIAN 35 mL/min/1.73m2 Critically low >=60 [facility] Comment on above: Performed By: #### B TECHNICAL ACCOUNT MANAGER #### [facility] [address] [place] [address] [address] Mirza Sadler Glucose [Mass/Vol] 242 mg/dL Critically high 74-106 [facility] Comment on above: Performed By: #### B TECHNICAL ACCOUNT MANAGER #### [facility] [address] [address] [address] Mirza Sadler Potassium [Moles/Vol] 4.4 mmol/L Normal 3.5-5.1 [facility] Comment on above: Performed By: #### B TECHNICAL ACCOUNT MANAGER #### [facility] [address] [place] [address] [address] Mirza Sadler Sodium [Moles/Vol] 138 mmol/L Normal 136-145 [facility] Comment on above: Performed By: #### B TECHNICAL ACCOUNT MANAGER #### [facility] [address] [place] [address] [address] Mirza Sadler Urea nitrogen [Mass/Vol] 33.0 mg/dL Critically high 7.0-18.0 [facility] Comment on above: Performed By: #### B TECHNICAL ACCOUNT MANAGER #### [facility] [address] [place] [address] [address] Mirza Sadler Urea nitrogen/Creatinine [Mass ratio] 17.3 mg/mg Normal [facility] Comment on above: Performed By: #### B TECHNICAL ACCOUNT MANAGER #### [facility] [address] [place] [address] [address] Mirza Sadler Office Visiton 05-02-2022 Follow-up visit [id number] Lani Lizama 1950 M Date Provider Department Center 05/02/2022 [id number], PINKY [facility] Family History Problem Relation Age of Onset Heart attack Mother Other Father Other Brother Heart attack Maternal Grandmother Heart attack Maternal Grandfather Family Status - Relation Status Age at Mother Father Brother Maternal Grandmother Maternal Grandfather Level of Service:92691 MD OFFICE/OUTPATIENT ESTABLISHED MOD MDM 30-39 MIN Reason for Visit and Comments: Coronary Artery Disease [187] 3rd degree heart block [Other] Hypertension [968274] Hyperlipidemia [182] Normal [facility] PROF CHEM 8 (BAS METB)on Anion gap [Moles/Vol] 10.7 mmol/L Normal [facility] Comment on above: Performed By: #### P T, PTT #### [facility] [address] [place] [address] [address] Mirza Sadler Calcium [Mass/Vol] 8.9 mg/dL Normal 8.5-10.1 [facility] Comment on above: Performed By: #### P T, PTT #### [facility] [address] [place] [address] [address] Miraz Sadler Chloride [Moles/Vol] 104 mmol/L Normal 98-107 [facility] Comment on above: Performed By: #### P T, PTT #### [facility] [address] [place] [address] [address] Mirza Sadler CO2 [Moles/Vol] 29.4 mmol/L Normal 21.0-32.0 [facility] Comment on above: Performed By: #### P T, PTT #### [facility] [address] [place] [address] [address] Mirza Sadler Creatinine [Mass/Vol] 1.75 mg/dL Critically high 0.70-1.30 [facility] Comment on above: Performed By: #### P T, PTT #### [facility] [address] [place] [address] [address] Mirza Sadler EGFR-AF ETHIOPIAN 47 mL/min/1.73m2 Critically low >=60 [facility] Comment on above: Performed By: #### P T, PTT #### [facility] [address] [place] [address] [address] Mirza Sadler EGFR-NON AF ETHIOPIAN 39 mL/min/1.73m2 Critically low >=60 [facility] Comment on above: Performed By: #### P T, PTT #### [facility] [address] [place] [address] [address] Mirza Sadler Glucose [Mass/Vol] 191 mg/dL Critically high 74-106 [facility] Comment on above: Performed By: #### P T, PTT #### [facility] [address] [place] [address] [address] Mirza Sadler Potassium [Moles/Vol] 4.1 mmol/L Normal 3.5-5.1 [facility] Comment on above: Performed By: #### P T, PTT #### [facility] [address] [place] [address] [address] Mirza Sadler Sodium [Moles/Vol] 140 mmol/L Normal 136-145 [facility] Comment on above: Performed By: #### P T, PTT #### [facility] [address] [place] [address] [address] Mirza Sadler Urea nitrogen [Mass/Vol] 31.0 mg/dL Critically high 7.0-18.0 [facility] Comment on above: Performed By: #### P T, PTT #### [facility] [address] [place] [address] [address] Mirza Sadler Urea nitrogen/Creatinine [Mass ratio] 17.7 mg/mg Normal [facility] Comment on above: Performed By: #### P T, PTT #### [facility] [address] [place] [address] [address] Mirza Sadler 36on 04-17-2022 36 done [facility] Office Visiton 04-03-2022 Follow-up visit [id number] Lani Lizama 1950 M Date Provider Department Center 04/03/2022 LAILA MCBRIDE [facility] Family History Problem Relation Age of Onset Heart attack Mother Other Father Other Brother Heart attack Maternal Grandmother Heart attack Maternal Grandfather Family Status - Relation Status Age at Mother Father Brother Maternal Grandmother Maternal Grandfather Level of Service:66704 MD POSTOP FOLLOW UP VISIT RELATED TO ORIGINAL PX [facility] XR CHEST 2 Von 03-22-2022 XR CHEST 2 V EXAMINATION: XR CHES T 2 V HISTORY: Complete atrioventricular block COMPARISON: XR chest 03/11/2022 FINDINGS: LUNGS: Trace amount of stranding within the lungs bilaterally. VASCULATURE: No increased pulmonary vasculature. PLEURA: No pneumothorax, effusion, or pleural thickening. CARDIAC: No cardiomegaly or cardiac silhouette abnormality. MEDIASTINUM: No visible mass or adenopathy. Prior sternotomy. BONES: No fracture or visible bone lesion. OTHER: Interval placement of cardiac pacer with appropriate appearance of leads. IMPRESSION: 1. New cardiac pacer; no appreciable abnormality. 2. Hyper expanded lungs with trace amount of pulmonary edema; significantly improved compared to prior study. Electronically authenticated by: HIGINIO FLANAGAN Date: 2022-03-22 16:12 Normal [facility] ANESon 03-21-2022 ANES ------ -- Attestation signed by Kevin Arteaga MD at 03/25/2022 3:42 PM By using the attestations below, the signing clinician agrees that I have read and verify that the documentation has been personally reviewed by me and ensure that the documentation accurately reflects the encounter. GC: I personally saw this patient on the day of the encounter, performed the lisa portion(s) of the service and participated in the management and confirm the resident's documentation. Please note there may be an additional personal documentation from me. -- Patient: Lani Lizama Procedure Information Date/Time: 03/21/22 1310 Procedure: Pacemaker DC new Location: [facility] PRODUCTION RECORDER 2 [facility] / [facility] (Cath) Providers: Kevin Arteaga MD Clinical information reviewed: Tobacco Allergies Med Hx Surg Hx Fam Hx Soc Hx Physical Exam Airway Mallampati: III Cardiovascular - normal exam Rhythm: regular Rate: normal (-) friction rub, carotid bruits, peripheral edema Dental Pulmonary - normal exam Abdominal - normal exam Anesthesia Plan ASA 3 other (Conscious sedation) Anesthetic plan and risks discussed with patient. Plan discussed with fellow. Additional Equipment Requests Normal [facility] APTTon 03-21-2022 ACTIVATED PARTIAL THROMBOPLASTIN TIME IN PPP BY COAGULATION ASSAY 29.9 Seconds Normal 25.0-35.0 [facility] Comment on above: Performed By: #### L [id number] ####[facility])[address] [place] [address] BASIC METABOLIC PANELon - Anion gap [Moles/Vol] 7 mmol/L Normal 7-20 [facility] Comment on above: Performed By: #### L AB15 ####[facility] ([facility])[address] [place] [address] Calcium [Mass/Vol] 9.4 mg/dL Normal 8.6-10.3 [facility] Comment on above: Performed By: #### L AB15 ####[facility] ([facility])[address] [place] [address] Chloride [Moles/Vol] 105 mmol/L Normal 98-107 [facility] Comment on above: Performed By: #### L AB15 ####[facility] ([facility])[address] [place] [address] CO2 [Moles/Vol] 29 mmol/L Normal 21-31 [facility] Comment on above: Performed By: #### L AB15 ####[facility] ([facility])[address] [place] [address] Creatinine [Mass/Vol] 1.54 mg/dL High 0.70-1.30 [facility] Comment on above: Performed By: #### L AB15 ####[facility] ([facility])[address] [place] [address] GLOMERULAR FILTRATION RATE ML/MIN/1.73 SQ M.PREDICTED 45.0 mL/min/1.73m*2 Low >60.0 [facility] Comment on above: Result Comment: The [facility]???s estimated glomerular filtration rate (eGFR) will no longer include consideration of race in its calculation. The National Kidney Foundation???s eGFR Task Force developed new recommendations for the estimation of the glomerular filtration rate in the [place] They recommend immediate implementation of the new equation refit without the race variable in all laboratories because the calculation does not include race. In addition to not including race in the calculation and reporting, it included diversity in its development, and has acceptable performance characteristics and potential consequences that do not disproportionately affect any one group of individuals. Performed By: #### L AB15 ####[facility] ([employer] [facility] [place] [address] Glucose [Mass/Vol] 166 mg/dL High 70-100 [facility] Comment on above: Performed By: #### L AB15 ####[facility] ([facility])[address] [place] [address] Potassium [Moles/Vol] 3.8 mmol/L Normal 3.5-5.1 [facility] Comment on above: Performed By: #### L AB15 ####[facility] ([facility])[address] [place] [address] Sodium [Moles/Vol] 141 mmol/L Normal 136-145 [facility] Comment on above: Performed By: #### L AB15 ####[facility] ([facility] [place] [place] [address] Urea nitrogen [Mass/Vol] 22 mg/dL Normal 7-25 [facility] Comment on above: Performed By: #### L [id number] ####[facility] ([facility])[address] [place] [address] UREA NITROGEN/CREATININE (MASS RATIO) IN SER/PLAS 14.29 Normal [facility] Comment on above: Performed By: #### L AB15 ####[facility] ([facility] [place])[address] [place] [address] CBCon 03-21-2022 Erythrocyte distribution width (RBC) [Ratio] 14.4 % Normal 11.5-15.0 [facility] Comment on above: Performed By: #### L [id number] #### [facility] ([facility]) [address] [place] [address] ERYTHROCYTE MEAN CORPUSCULAR HEMOGLOBIN CONCENTRATION (G/DL) BY AUTOMATED 34.0 g/dL Normal 32.0-35.0 [facility] Comment on above: Performed By: #### L [id number] #### [facility] ([facility]) [address] [place] [address] Hematocrit (Bld) [Volume fraction] 38.8 % Low 39.0-55.0 [facility] Comment on above: Performed By: #### L [id number] #### [facility] ([employer] [facility]) [address] [place] [address] Hemoglobin (Bld) [Mass/Vol] 13.2 g/dL Normal 13.0-17.0 [facility] Comment on above: Performed By: #### L [id number] #### [facility] ([facility]) [address] [place] [address] MCH (RBC) [Entitic mass] 30.2 pg Normal 27.0-33.0 [facility] Comment on above: Performed By: #### L [id number] #### [facility] ([facility]) [address] [place] [address] MCV (RBC) [Entitic vol] 88.8 fL Normal 82.0-98.0 [facility] Comment on above: Performed By: #### L [id number] #### [facility] ([employer] [facility]) [address] [place] [address] PLATELETS (10*3/UL) IN BLOOD AUTOMATED COUNT 205 10*3/uL Normal 150-400 [facility] Comment on above: Performed By: #### L [id number] #### [facility] ([facility] [address] [place] [address] RBC (Bld) [#/Vol] 4.37 10*6/uL Normal 4.20-5.70 [facility] Comment on above: Performed By: #### L [id number] #### [facility] ([employer] [facility]) [address] [place] [address] WBC (Bld) [#/Vol] 7.61 10*3/uL Normal 4.00-10.60 [facility] Comment on above: Performed By: #### L [id number] #### [facility] ([employer] [facility] [address] [place] [address] DSon 03-21-2022 DS Admission Admitted 03/21/2022 for heart problem Discharge Diagnosis AV block, 3rd degree (CMS/HCC) admitted for pacemaker placement. Discharge Disposition Home or Self Care Discharge Medications Your medication list START taking these medications Instructions Last Dose Given Next Dose Due doxycycline 100 mg capsule Commonly known as: Monodox Take 1 capsule (100 mg) by mouth in the morning and at bedtime for 14 days. Take with at least 8 ounces (large glass) of water, do not lie down for 30 minutes after CONTINUE taking these medications Instructions Last Dose Given Next Dose Due ALPRAZolam 0.5 mg tablet Commonly known as: Xanax amLODIPine 10 mg tablet Commonly known as: Norvasc aspirin 81 mg chewable tablet carvedilol 25 mg tablet Commonly known as: Coreg clopidogrel 75 mg tablet Commonly known as: Plavix empagliflozin 10 mg Commonly known as: Jardiance insulin aspart 100 unit/mL injection Commonly known as: NovoLOG insulin detemir 100 unit/mL injection Commonly known as: Levemir isosorbide mononitrate ER 60 mg 24 hr tablet Commonly known as: Imdur lisinopril 20 mg tablet lovastatin 40 mg tablet Commonly known as: Mevacor multivitamin capsule nitroglycerin 0.4 mg SL tablet Commonly known as: Nitrostat OZEMPIC SUBQ pantoprazole 40 mg EC tablet Commonly known as: ProtoNix Where to Get Your Medications These medications were sent to [facility]/pharmacy #[id number] - [place], [place] - [address] [facility] [address] [address] [address] doxycycline 100 mg capsule Activity Patient currently has no discharge activity orders Diet Patient currently has no discharge diet orders Allergies Patient has no known allergies. Hospital Course DUAL CHAMBER PACEMAKER IMPLANT PROCEDURE NOTE DATE OF PROCEDURE: 03/21/22 PERFORMING PHYSICIAN: Dr. 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 Implantation of pacemaker ([employer]) 2. Ultrasound guided venous access INDICATIONS: 1. 3rd degree AV block 2. Bradycardia PROCEDURAL SEDATION: Versed and Fentanyl. Moderate sedation was administered by the sedation nurse under my supervision and noted in the CVL log. Intraprocedural face to face sedation time: 53min. Monitoring: Cardiac telemetry, Blood pressure, continuous pulse oxymetry. FLUOROSCOPY TIME: [id number]/ 22mGray. EBL: 15cc SPECIMEN REMOVED: None PREPARATION: 71 y.o. year old with past medical history of CAD s/p CABG, PVD, DM2 and hypertension. He was recently admitted to [facility] for NSTEMI. Had inpatient stress test and heart cath. Denies SOB but still having chest pain and has taken nitroglycerin a few times for relief. Had CT chest last week s/p discharge. Cardiac catheterization revealed patent bypass grafts and worsening sh[place] ira vessel disease. Medications were adjusted. I had a conversation with his son also who mentions pt having bradycardia for ~1-2 months where HR was in 40's. It is unclear as to why he got the event monitor but this revealed presence of 3rd degree AV block on 03/19/22 @9pm. Pt did not report syncope but states fatigue. He is on BB which he needs for CAD and Ischemic CMP. PROCEDURAL DETAILS: Patient was placed in trendelenberg position and ultrasound was used to evaluate the patency of left axillary vein and for venous access. Left axillary venous access was obtained using modified seldinger technique using a 5 Canadian micro-puncture needle on two occasions and 0.35 wires were placed. Local infiltration of 1% Lidocaine was performed, and an incision was created in the left upper chest. Dissection was then performed using cautery down to the fascial plane above the muscle. The belly of the pectoralis was identified and with gentle blunt dissection a small pocket was created for the device above the muscle. 6 Canadian Safesheaths were placed over the wire. An active fixation [employer] pacing lead was then delivered through the 6Fsheath to the right ventricle. After confirmation of lead position on orthogonal views (DOWNING and CZECH) to confirm septal position, the screw was activated, and the lead was placed in the right ventricular mid cavity towards the septum. After confirmation of good sensing parameters, injury pattern and pacing thresholds, 10V pacing was done and no diaphragmatic stimulation was noted. It was then secured in the pocket using three 1-0 Silk sutures. Then an active fixation [employer] lead was delivered through the 6Fsheath to the right atrial appendage. After confirmation of lead position on orthogonal views (DOWNING and CZECH), the screw was activated. Good sensing parameters, injury pattern and pacing thresholds, the lead was then tested using Lambert's maneuver. 10V pacing was done and no diaphragmatic stimulation was noted. It was then secured in the pocket using three 1-0 Silk sutures. Pocket hemostas (more content not included)... Normal [facility] EDPROVon 03-21-2022 EDPROV HPI Chief Complaint Patient presents with Heart Problem Pt had TN last week, was at home during night wearing event monitor, monitor showed complete heart block, was called by Dr. Arteaga to come to ED for pacemaker workup. Pt denies cardiac symptoms. 71-year-old male with past medical history of TN x2 in the last 2 months, CHF with preserved EF, wenkebach last week, first-degree AV block, coronary artery disease with 7 stents, CABG x5, hypertension, diabetes mellitus type 2. Hypercholesterolemia no history of CVA, PE or DVT. History was obtained by patient and patient's son who is a nurse at [facility] [employer] [employer] as well as the patient. They report patient's heart rate has been in the 40s for several months. Patient had an event monitor placed. Son and patient report he received a call from Dr. Arteaga cardiology last night stating his event recorder had read third-degree heart block. Images were sent to the son on his phone which he shared which shows slow third-degree heart block. Patient was asymptomatic with this. Patient denies headache dizziness syncope chest pain shortness of breath abdominal pain nausea vomiting or diarrhea no fevers or chills no palpitations. Patient has had shortness of breath only with exertion for several months that is not new or changed. They report his Coreg dose was decreased last week. Patient and son reported he was to come to ED today for pacemaker placement Dr. Arteaga wants to place a pacemaker today. Son reports he had elevated troponins within the last week as well. Terrell Coma Scale Score: 15 Patient History Past Medical History: Diagnosis Date Carotid artery stenosis Coronary artery disease Diabetes mellitus ([facility]) Hyperlipidemia Hypertension PVD (peripheral vascular disease) ([facility]) Past Surgical History: Procedure Laterality Date CARDIAC CATHETERIZATION 07/12/2020 CARDIAC CATHETERIZATION 10/15/2018 CARDIAC CATHETERIZATION 02/24/2018 CARDIAC CATHETERIZATION 09/27/2015 CORONARY ARTERY BYPASS GRAFT CORONARY STENT PLACEMENT Family History Problem Relation Name Age of Onset Heart attack Mother Heart attack Maternal Grandmother Heart attack Maternal Grandfather Social History Tobacco Use Smoking status: Former Types: Cigarettes Smokeless tobacco: Never Substance Use Topics Alcohol use: Never Drug use: Never Review of Systems Review of Systems Constitutional: Negative for chills, fatigue and fever. HENT: Negative for sore throat. Eyes: Negative for pain and visual disturbance. Respiratory: Negative for cough and shortness of breath. Cardiovascular: Negative for chest pain and palpitations. Gastrointestinal: Negative for abdominal pain, blood in stool, constipation, diarrhea, nausea and vomiting. Genitourinary: Negative for dysuria, flank pain, frequency and hematuria. Musculoskeletal: Negative for arthralgias and back pain. Skin: Negative for color change and rash. Neurological: Negative for dizziness, seizures, syncope, facial asymmetry, speech difficulty, weakness, light-headedness, numbness and headaches. Psychiatric/Behavioral: Negative for confusion. All other systems reviewed and are negative. Physical Exam ED Triage Vitals Temp Heart Rate Resp BP 03/21/22 0725 03/21/22 0725 03/21/22 0725 03/21/22 0725 36.4 ???C (97.5 ???F) (!) 43 16 118/59 SpO2 Temp src Heart Rate Source Patient Position 03/21/22 0725 -- -- -- 97 % BP Location FiO2 (%) -- 03/21/22 1205 40 % Physical Exam Vitals reviewed. Constitutional: General: He is not in acute distress. Appearance: He is well-developed. He is not ill-appearing, toxic-appearing or diaphoretic. Comments: Alert and oriented x3 GCS 15 speaking in full sentences nontoxic appearance HENT: Head: Normocephalic and atraumatic. Nose: Nose normal. No congestion or rhinorrhea. Mouth/Throat: Mouth: Mucous membranes are moist. Pharynx: Oropharynx is clear. No oropharyngeal exudate or posterior oropharyngeal erythema. Eyes: General: No scleral icterus. Extraocular Movements: Extraocular movements intact. Conjunctiva/sclera: Conjunctivae normal. Pupils: Pupils are equal, round, and reactive to light. Cardiovascular: Rate and Rhythm: Regular rhythm. Bradycardia present. Pulses: Normal pulses. Heart sounds: Normal heart sounds. Pulmonary: Effort: Pulmonary effort is normal. No respiratory distress. Breath sounds: Normal breath sounds. Chest: Chest wall: No tenderness. Abdominal: Palpations: Abdomen is soft. Tenderness: There is no abdominal tenderness. There is no right CVA tenderness, left CVA tenderness, guarding or rebound. Musculoskeletal: General: No swelling, tenderness, deformity or signs of injury. Normal range of motion. Cervical back: Normal range of motion and neck supple. No tenderness. Right lower leg: No edema. Left lower leg: No edema. Skin: General: Skin is warm and dry. Findings: No cristal (more content not included)... Normal [facility] HEPATIC FUNCTION PANELon Albumin [Mass/Vol] 4.2 g/dL Normal 3.5-5.7 [facility] Comment on above: Performed By: #### L [id number] #### [facility] ([employer] [facility]) [address] [place] [address] ALP [Catalytic activity/Vol] 106 U/L High 34-104 [facility] Comment on above: Performed By: #### L [id number] #### [facility] ([facility]) [address] [place] [address] ALT [Catalytic activity/Vol] 21 U/L Normal 7-52 [facility] Comment on above: Performed By: #### L [id number] #### [facility] ([facility]) [address] [place] [address] AST [Catalytic activity/Vol] 18 U/L Normal 13-39 [facility] Comment on above: Performed By: #### L [id number] #### [facility] ([facility]) [address] [place] [address] Bilirubin [Mass/Vol] 0.7 mg/dL Normal 0.3-1.0 [facility] Comment on above: Performed By: #### L [id number] #### [facility] ([facility]) [address] [place] [address] Magnesium [Mass/Vol] 0.2 mg/dL Normal 0-0.2 [facility] Comment on above: Performed By: #### L [id number] #### [facility] ([facility]) [address] [place] [address] Protein [Mass/Vol] 7.2 g/dL Normal 6.0-8.3 [facility] Comment on above: Performed By: #### L [id number] #### [facility] ([facility]) [address] [place] [address] HP 03-21-2022 ------ -- Attestation signed by Kevin Arteaga MD at 03/25/2022 3:10 PM By using the attestations below, the signing clinician agrees that I have read and verify that the documentation has been personally reviewed by me and ensure that the documentation accurately reflects the encounter. GC: I personally saw this patient on the day of the encounter, performed the lisa portion(s) of the service and participated in the management and confirm the resident's documentation. Please note there may be an additional personal documentation from me. -- Reason for visit: Complete heart block on event monitor HPI: Lani Lizama is a 71 y.o. year old with past medical history of CAD s/p CABG, PVD, DM2 and hypertension. He was recently admitted to [facility] for NSTEMI. Had inpatient stress test and heart cath. Denies SOB but still having chest pain and has taken nitroglycerin a few times for relief. Had CT chest last week s/p discharge. Cardiac catheterization revealed patent bypass grafts and worsening [place] ira vessel disease. Medications were adjusted. I had a conversation with his son also who mentions pt having bradycardia for ~1-2 months where HR was in 40's. It is unclear as to why he got the event monitor but this revealed presence of high degree AV block on 03/19/22 @9pm. Pt did not report syncope but state fatigue. He is on BB which he needs for CAD and Ischemic CMP. PMH: Medical History Past Medical History: Diagnosis Date Carotid artery stenosis Coronary artery disease Diabetes mellitus ([facility]) Hyperlipidemia Hypertension PVD (peripheral vascular disease) ([facility]) PSH: Surgical History Past Surgical History: Procedure Laterality Date CARDIAC CATHETERIZATION 07/12/2020 CARDIAC CATHETERIZATION 10/15/2018 CARDIAC CATHETERIZATION 02/24/2018 CARDIAC CATHETERIZATION 09/27/2015 CORONARY ARTERY BYPASS GRAFT CORONARY STENT PLACEMENT SH: Social Determinants of Health Tobacco Use: Medium Risk Smoking Tobacco Use: Former Smokeless Tobacco Use: Never Passive Exposure: Not on file Alcohol Use: Not on file Financial Resource Strain: Not on file Food Insecurity: Not on file Transportation Needs: Not on file Physical Activity: Not on file Stress: Not on file Social Connections: Not on file Intimate Partner Violence: Not on file Depression: Not on file Housing Stability: Not on file Allergies: No Known Allergies Weight: No results found for: PTWEIGHT Meds: Current Outpatient Medications on File Prior to Visit Medication Sig Dispense Refill ALPRAZolam (Xanax) 0.5 mg tablet Take 1 tablet by mouth in the morning, afternoon, and at bedtime. amLODIPine (Norvasc) 10 mg tablet Take 1 tablet by mouth in the morning. aspirin 81 mg chewable tablet Chew 1 tablet every day by oral route. carvedilol (Coreg) 25 mg tablet Take 25 mg by mouth with breakfast and with evening meal. clopidogrel (Plavix) 75 mg tablet Take 1 tablet by mouth in the morning. empagliflozin (Jardiance) 10 mg Take 1 tablet every day by oral route. insulin aspart (NovoLOG) 100 unit/mL injection Inject under the skin 1 (one) time. insulin detemir (Levemir) 100 unit/mL injection Inject under the skin in the morning and at bedtime. isosorbide mononitrate ER (Imdur) 60 mg 24 hr tablet Take 1 tablet by mouth in the morning and at bedtime. lisinopril 20 mg tablet Take 20 mg by mouth. lovastatin (Mevacor) 40 mg tablet in the evening. multivitamin capsule Take 1 capsule by mouth in the morning. nitroglycerin (Nitrostat) 0.[address] 1 TABLET UNDER TONGUE EVERY 5 MINS, UP TO 3 DOSES NEEDED FOR CHEST PAIN pantoprazole (ProtoNix) 40 mg EC tablet TAKE 1 TABLET BY MOUTH EVERYDAY ON AN EMPTY STOMACH FOLLOWED IN 30 MINUTES BY BREAKFAST semaglutide (OZEMPIC SUBQ) qWeek, Refill(s) 0 No current facility-administered medications on file prior to visit. ROS: Cardio Basic Cardiovascular Symptoms: no lightheadedness, no leg edema, no syncope, no orthopnea, no PND, no claudication, Constitutional Constitutional: no fever, no night sweats, no significant weight gain, no significant weight loss, no exercise intolerance Eyes Eyes: no dry eyes, no irritation, no vision change ENMT Ears: no difficulty hearing, no ear pain Nose: no frequent nosebleeds, Mouth/Throat: no sore throat, no bleeding gums, no snoring, no dry mouth, no mouth ulcers, no oral abnormalities, no teeth problems Respiratory Respiratory: no cough, no wheezing, no coughing up blood, no sleep apnea Musculoskeletal Musculoskeletal: no muscle aches, no muscle weakness, joint pain+, no back pain, no swelling in the extremities Integumentary Skin no rash, no ulcer, no varicosities, no discoloration, no pruritus Neurologic Neurologic: no loss of consciousness, no weaknes (more content not included)... Normal [facility] Orders Onlyon 03-21-2022 Orders Only [id number] Lani Lizama 1950 M Date Provider Department Center 03/21/2022 [facility] Family History Problem Relation Age of Onset Heart attack Mother Heart attack Maternal Grandmother Heart attack Maternal Grandfather Family Status - Relation Status Age at Mother Maternal Grandmother Maternal Grandfather Normal [facility] POCT SARS-COV-2 PCRon 2021 POC SARS-COV-2 ANTIGEN Negative Normal Negative [facility] Comment on above: Result Comment: DAI Lockwood OW COVID-19 assay performed on the [employer] NOW Instrument is a rapid molecular in vitro diagnostic test utilizing an isothermal nucleic acid amplification technology intended for the qualitative detection of nucleic acid from the SARS-CoV-2 virus in direct anterior nasal(nasal), nasopharyngeal or throat swabs from individuals who are suspected of COVID-19 by their healthcare provider within the first seven days of the onset of symptoms.Testing is limited to laboratories certified under the Clinical Laboratory Improvement Amendments of 1988 (CLIA), 42 U.S.C. ???263a,that meet the requirements to perform high, moderate, or waived complexity tests. The ID NOW COVID-19 assay is also authorized for use at the Point of Care (POC), i.e., in patient care settings operating under a CLIA Certificate of Waiver, Certificate of Compliance, or Certificate of Accreditation. Performed By: #### L [id number] ####[facility] ([facility])[address] [place] [address] PROTIME-INRon 03-21-2022 INR IN PPP BY COAGULATION ASSAY 1.15 High 0.90-1.10 [facility] Comment on above: Result Comment: [facility] P RECOMMENDED INR FOR WARFARIN THERAPY CONDITION INR PROPHYLAXIS OF VENOUS THROMBOSIS 2-3 (HIGH-RISK SURGERY) TREATMENT OF VENOUS THROMBOSIS 2-3 TREATMENT OF PULMONARY EMBOLISM 2-3 PREVENTION OF SYSTEMIC EMBOLISM: 2-3 ACUTE MYOCARDIAL INFARCTION TISSUE HEART VALVES VALVULAR HEART DISEASE ATRIAL FIBRILLATION RECURRENT SYSTEMIC EMBOLISM MECHANICAL HEART VALVE 2.5-3.5 FROM: ORAL ANTICOAGULANTS. MECHANISM OF ACTION, CLINICAL EFFECTIVENESS, AND OPTIMAL THERAPEUTIC RANGE. CHEST 1995;108:231S-246S. Performed By: #### L [id number] #### [facility] ([employer] [facility]) [address] [place] [address] PROTHROMBIN TIME (PT) IN PPP BY COAGULATION ASSAY 14.6 Seconds Normal 12.3-14.8 [facility] Comment on above: Performed By: #### L [id number] #### [facility] ([facility]) [address] [place] [address] TROPONIN Ion 03-21-2022 Troponin I.cardiac [Mass/Vol] 0.10 ng/mL High 0.00-0.04 [facility] Comment on above: Performed By: #### L [id number] #### [facility] ([employer] [facility]) [address] [place] [address] A1C HEMOGLOBINon 03-20-2022 HbA1c (Bld) [Mass fraction] 6.7 % [employer] Other Glucose - FINGER STICKon Glucose [Mass/Vol] 193 mg/dL [employer] Other HbA1c (Bld) [Mass fraction]o n 03-20-2022 A1C HEMOGLOBIN mInfo Other Telemedicineon 03-20-2022 Telemedicine [id number] Lani Lizama 1950 Date Provider Department [place] 03/20/2022 KEVIN DEMPSEY [facility] Family History Problem Relation Age of Onset Heart attack Mother Heart attack Maternal Grandmother Heart attack Maternal Grandfather Family Status - Relation Status Age at Mother Maternal Grandmother Maternal Grandfather Level of Service:46989 MD PHYS/QHP TELEPHONE EVALUATION 21-30 MIN Normal [facility] BNPon 03-13-2022 Natriuretic peptide B (Bld) [Mass/Vol] 4825.0 pg/mL Critically high <=900.0 [facility] Comment on above: Performed By: #### E RUR #### [facility] [address] [place] [address] Dr. Mirza Sadler CBC AUTO DIFFon 03-13-2022 BASO # 0.0 103/ul Normal 0.0-0.1 [facility] Comment on above: Performed By: #### E RUR #### [facility] [address] [place] [address] Dr. Mirza Sadler Basophils/100 WBC (Bld) 0.6 % Normal 0.2-2.0 [facility] Comment on above: Performed By: #### E RUR #### [facility] [address] [place] [address] Dr. Mirza Sadler EO # 0.1 103/ul Normal 0.0-0.7 [facility] Comment on above: Performed By: #### E RUR #### [facility] [address] [place] [address] Dr. Mirza Sadler Eosinophils/100 WBC (Bld) 1.8 % Normal 0.9-7.0 [facility] Comment on above: Performed By: #### E RUR #### [facility] [address] [place] [address] Dr. Mirza Sadler Erythrocyte distribution width (RBC) [Ratio] 14.4 % Normal 11.0-15.0 [facility] Comment on above: Performed By: #### E RUR #### [facility] [address] [place] [address] Dr. Mirza Sadler Hematocrit (Bld) [Volume fraction] 36.1 % Critically low 42.0-54.0 [facility] Comment on above: Performed By: #### E RUR #### [facility] [address] [place] [address] Dr. Mirza Sadler Hemoglobin (Bld) [Mass/Vol] 11.9 g/dL Critically low 14.0-18.0 [facility] Comment on above: Performed By: #### E RUR #### [facility] [address] [place] [address] Dr. Mirza Sadler IG # 0.02 10e3/ul Normal 0.00-0.03 [facility] Comment on above: Performed By: #### E RUR #### [facility] [address] [place] [address] Dr. Mirza Sadler IG % 0.3 % Normal 0.0-0.5 [facility] Comment on above: Performed By: #### E RUR #### [facility] [address] [place] [address] Dr. Mirza Sadler LYMPH # 1.5 103/ul Normal 1.2-3.8 [facility] Comment on above: Performed By: #### E RUR #### [facility] [address] [place] [address] Dr. Mirza Sadler Lymphocytes/100 WBC (Bld) 22.6 % Normal 20.5-60.0 [facility] Comment on above: Performed By: #### E RUR #### [facility] [address] [place] [address] Dr. Mirza Sadler MANUAL DIFF REQ NO Normal [facility] Comment on above: Performed By: #### E RUR #### [facility] [address] [place] [address] Dr. Mirza Sadler MCH (RBC) [Entitic mass] 29.0 pg Normal 25.9-34.0 [facility] Comment on above: Performed By: #### E RUR #### [facility] [address] [place] [address] Dr. Mirza Sadler MCHC (RBC) [Mass/Vol] 33.0 g/dL Normal 29.9-35.2 [facility] Comment on above: Performed By: #### E RUR #### [facility] [address] [place] [address] Dr. Mirza Sadler MCV (RBC) [Entitic vol] 88.0 fL Normal 80.0-94.0 [facility] Comment on above: Performed By: #### E RUR #### [facility] [address] [place] [address] Dr. Mirza Sadler MONO # 0.7 103/ul Normal 0.3-0.8 [facility] Comment on above: Performed By: #### E RUR #### [facility] [address] [address] [address] Mirza Sadler Monocytes/100 WBC (Bld) 10.2 % Normal 1.7-12.0 [facility] Comment on above: Performed By: #### E RUR #### [facility] [address] [place] [address] [address] Mirza Sadler NEUT # 4.3 103/ul Normal 1.4-6.5 [facility] Comment on above: Performed By: #### E RUR #### [facility] [address] [place] [address] Dr. Mirza Sadler Neutrophils/100 WBC (Bld) 64.5 % Normal 43.0-75.0 [facility] Comment on above: Performed By: #### E RUR #### [facility] [address] [place] [address] Dr. Mirza Sadler Platelet mean volume (Bld) [Entitic vol] 9.7 fL Normal 9.5-13.5 [facility] Comment on above: Performed By: #### E RUR #### [facility] [address] [place] [address] Dr. Mirza Sadler PLT 149 103/ul Critically low 150-450 [facility] Comment on above: Performed By: #### E RUR #### [facility] [address] [place] [address] Dr. Mirza Sadler RBC 4.10 106/ul Critically low 4.70-6.10 [facility] Comment on above: Performed By: #### E RUR #### [facility] [address] [place] [address] Dr. Mirza Sadler WBC 6.6 103/ul Normal 4.0-11.0 [facility] Comment on above: Performed By: #### E RUR #### [facility] [address] [place] [address] Dr. Mirza Sadler PROF CHEM 8 (BAS METB)on Anion gap [Moles/Vol] 14.6 mmol/L Normal [facility] Comment on above: Performed By: #### E RUR #### [facility] [address] [place] [address] Dr. Mirza Sadler Calcium [Mass/Vol] 8.5 mg/dL Normal 8.5-10.1 [facility] Comment on above: Performed By: #### E RUR #### [facility] [address] [place] [address] Dr. Mirza Sadler Chloride [Moles/Vol] 104 mmol/L Normal 98-107 [facility] Comment on above: Performed By: #### E RUR #### [facility] [address] [place] [address] Dr. Mirza Sadler CO2 [Moles/Vol] 22.7 mmol/L Normal 21.0-32.0 [facility] Comment on above: Performed By: #### E RUR #### [facility] [address] [place] [address] Dr. Mirza Sadler Creatinine [Mass/Vol] 1.78 mg/dL Critically high 0.70-1.30 [facility] Comment on above: Performed By: #### E RUR #### [facility] [address] [place] [address] Dr. Mirza Sadler EGFR-AF ETHIOPIAN 46 mL/min/1.73m2 Critically low >=60 [facility] Comment on above: Performed By: #### E RUR #### [facility] Laboratory [address] [place] [address] Dr. Mirza Sadler EGFR-NON AF ETHIOPIAN 38 mL/min/1.73m2 Critically low >=60 [facility] Comment on above: Performed By: #### E RUR #### [facility] Laboratory [address] [place] [address] Dr. Mirza Sadler Glucose [Mass/Vol] 121 mg/dL Critically high 74-106 [facility] Comment on above: Performed By: #### E RUR #### [facility] [address] [place] [address] Dr. Mirza Sadler Potassium [Moles/Vol] 3.3 mmol/L Critically low 3.5-5.1 [facility] Comment on above: Performed By: #### E RUR #### [facility] [address] [place] [address] Dr. Mirza Sadler Sodium [Moles/Vol] 138 mmol/L Normal 136-145 The [facility] Comment on above: Performed By: #### E RUR #### [facility] [address] [place] [address] Dr. Mirza Sadler Urea nitrogen [Mass/Vol] 30.0 mg/dL Critically high 7.0-18.0 [facility] Comment on above: Performed By: #### E RUR #### [facility] [address] [place] [address] Dr. Mirza Sadler Urea nitrogen/Creatinine [Mass ratio] 16.9 mg/mg Normal [facility] Comment on above: Performed By: #### E RUR #### [facility] [address] [place] [address] Dr. Mirza Sadler BNPon 03-12-2022 Natriuretic peptide B (Bld) [Mass/Vol] 7452.0 pg/mL Critically high <=900.0 [facility] Comment on above: Performed By: #### C TANIA CMADM #### [facility] [address] [place] [address] Dr. Mirza Sadler CBC AUTO DIFFon 03-12-2022 BASO # 0.0 103/ul Normal 0.0-0.1 [facility] Comment on above: Performed By: #### P T, PTT #### [facility] [address] [place] [address] Dr. Mirza Sadler Basophils/100 WBC (Bld) 0.4 % Normal 0.2-2.0 [facility] Comment on above: Performed By: #### P T, PTT #### [facility] [address] [place] [address] Dr. Mirza Sadler EO # 0.0 103/ul Normal 0.0-0.7 [facility] Comment on above: Performed By: #### P T, PTT #### [facility] [address] [place] [address] Dr. Mirza Sadler Eosinophils/100 WBC (Bld) 0.2 % Critically low 0.9-7.0 [facility] Comment on above: Performed By: #### P T, PTT #### [facility] [address] [place] [address] Dr. Mirza Sadler Erythrocyte distribution width (RBC) [Ratio] 14.6 % Normal 11.0-15.0 [facility] Comment on above: Performed By: #### P T, PTT #### [facility] [address] [place] [address] Dr. Mirza Sadler Hematocrit (Bld) [Volume fraction] 37.8 % Critically low 42.0-54.0 [facility] Comment on above: Performed By: #### P T, PTT #### [facility] [address] [place] [address] Dr. Mirza Sadler Hemoglobin (Bld) [Mass/Vol] 12.2 g/dL Critically low 14.0-18.0 [facility] Comment on above: Performed By: #### P T, PTT #### [facility] [address] [place] [address] Dr. Mirza Sadler IG # 0.03 10e3/ul Normal 0.00-0.03 [facility] Comment on above: Performed By: #### P T, PTT #### [facility] [address] [place] [address] Dr. Mirza Sadler IG % 0.3 % Normal 0.0-0.5 [facility] Comment on above: Performed By: #### P T, PTT #### [facility] [address] [place] [address] Dr. Mirza Sadler LYMPH # 1.2 103/ul Normal 1.2-3.8 [facility] Comment on above: Performed By: #### P T, PTT #### [facility] [address] [place] [address] Dr. Mirza Sadler Lymphocytes/100 WBC (Bld) 11.5 % Critically low 20.5-60.0 [facility] Comment on above: Performed By: #### P T, PTT #### [facility] [address] [address] [address] Mirza Sadler MANUAL DIFF REQ NO Normal [facility] Comment on above: Performed By: #### P T, PTT #### [facility] [address] [place] [address] Dr. Mirza Sadler MCH (RBC) [Entitic mass] 29.0 pg Normal 25.9-34.0 [facility] Comment on above: Performed By: #### P T, PTT #### [facility] [address] [place] [address] Dr. Mirza Sadler MCHC (RBC) [Mass/Vol] 32.3 g/dL Normal 29.9-35.2 [facility] Comment on above: Performed By: #### P T, PTT #### [facility] [address] [place] [address] Dr. Mirza Sadler MCV (RBC) [Entitic vol] 89.8 fL Normal 80.0-94.0 [facility] Comment on above: Performed By: #### P T, PTT #### [facility] [address] [place] [address] Dr. Mirza Sadler MONO # 0.7 103/ul Normal 0.3-0.8 [facility] Comment on above: Performed By: #### P T, PTT #### [facility] [address] [place] [address] Dr. Mirza Sadler Monocytes/100 WBC (Bld) 6.8 % Normal 1.7-12.0 [facility] Comment on above: Performed By: #### P T, PTT #### [facility] [address] [place] [address] Dr. Mirza Sadler NEUT # 8.5 103/ul Critically high 1.4-6.5 [facility] Comment on above: Performed By: #### P T, PTT #### [facility] [address] [place] [address] Dr. Mirza Sadler Neutrophils/100 WBC (Bld) 80.8 % Critically high 43.0-75.0 [facility] Comment on above: Performed By: #### P T, PTT #### [facility] [address] [address] [address] Mirza Sadler Platelet mean volume (Bld) [Entitic vol] 9.8 fL Normal 9.5-13.5 [facility] Comment on above: Performed By: #### P T, PTT #### [facility] [address] [address] [address] Mirza Sadler PLT 165 103/ul Normal 150-450 [facility] Comment on above: Performed By: #### P T, PTT #### [facility] [address] [address] [address] Mirza Sadler RBC 4.21 106/ul Critically low 4.70-6.10 [facility] Comment on above: Performed By: #### P T, PTT #### [facility] [address] [address] [address] Mirza Sadler WBC 10.5 103/ul Normal 4.0-11.0 [facility] Comment on above: Performed By: #### P T, PTT #### [facility] [address] [address] [address] Mirza Sadler ECHOCARDIO M/2D COMPLETEon 1 05-13-2021 ECHOCARDIO M/2D COMPLETE Patient: LANI LZIAMA Exam Date: 03/12/2022 : 1950 Gender:M Ordering : DR OBDULIO ALVA . Admission #: [id number] Family : DR HARLEY CRESPO D.O. Order #: [id number] CLICK HERE TO VIEW EXAM ECHOCARDIOGRAM REPORT PROCEDURE: CARDIO PULMONARY ECHOCARDIO M/2D COMP INDICATIONS: Elevated TROP and BNPChest pain, recent TN, CHF, CBAG x 5, PTCA x 7 COMPARISON: None. DESCRIPTION: COMPLETE ECHOCARDIOGRAM Real-time transthoracic echocardiography with 2D, M-mode, spectral and color flow Doppler performed. QUALITY: Technical quality was good. 67 172# BP 124/55 LEFT VENTRICLE: Normal chamber size. Mild concentric left ventricular hypertrophy. There is mild global hypokinesis. LV EF: Mildly reduced left ventricular ejection fraction, (45-50%). DIASTOLIC: Not adequately assessed due to heart rhythm. ATRIAL SEPTUM: Visually appears intact. LEFT ATRIUM: Moderately dilated. RIGHT ATRIUM: Mildly dilated. RIGHT VENTRICLE: Normal chamber size. Preserved right ventricular systolic function. TRICUSPID VALVE: Normal mobility and thickness. No stenosis with trivial regurgitation. MITRAL VALVE: Mildly thickened with normal mobility. No evidence of mitral valve stenosis. There is no mitral annular calcification. Mild to moderate mitral regurgitation. AORTIC VALVE: Normal trileaflet appearance. Thickened aortic valve. Normal leaflet mobility. No evidence of aortic valve stenosis. No aortic regurgitation. AORTIC ROOT: Normal diameter and appearance. PULMONIC VALVE: Normal thickness and mobility. No stenosis. Trivial regurgitation. PERICARDIUM: No evidence of pericardial effusion. IVC: Mildly enlarged with no collapse. PLEURA: CONCLUSION: 1. Left ventricular systolic function is mildly reduced with global hypokinesis. LVEF is 45 to 50%. 2. Normal right ventricular size and systolic function. 3. Mild to moderate mitral regurgitation. 4. No pericardial effusion. Adult Echocardiography Procedure Report Left Ventricle LVEDD (3.7 - 5.6 cm): 5.02 cm LVESD (2.2 - 4.0 cm): 3.95 cm LVIVS thickness (0.6 - 1.2 cm): 0.95 cm LVPW thickness (0.5 - 1.0 cm): 1.09 cm LVOT Max Gradient: 1.29 mm[Hg] Peak Velocity (LVOT): 0.57 m/s LVOT Diameter 1.99 cm Left Ventricular Ejection Fraction: 45-50% Left Atrium Left Atrium Systolic Dimension: 4.37 cm Mitral Valve Mitral Valve E-Wave Peak Velocity: 1.29 m/s, 1.24 m/s Right Ventricle Aorta AO Root Diam: 2.97 cm Aortic Valve AoV Area (Peak Ermias): 1.16 cm2, 1.16 cm2 Peak Velocity(Antegrade Flow): 1.52 m/s Peak Gradient(Antegrade Flow): 9.23 mm[Hg] Tricuspid Valve Pulmonic Valve Peak Velocity: 1.17 m/s, 1.01 m/s Peak Gradient: 5.52 mm[Hg], 4.11 mm[Hg] Right Atrium Right Atrium Systolic Pressure: 73.45 ml, 73.45 ml Dictated by: Petar Foreman M.D. on 03/13/2022 at 17:37 Approved by: Petar Foreman M.D. on 03/13/2022 at 17:42 Normal [facility] PROF CHEM 8 (BAS METB)on Anion gap [Moles/Vol] 17.8 mmol/L Normal [facility] Comment on above: Performed By: #### C MP, CMADM #### [facility] [address] [place] [address] Dr. Mirza Sadler Calcium [Mass/Vol] 8.6 mg/dL Normal 8.5-10.1 [facility] Comment on above: Performed By: #### C MP, CMADM #### [facility] [address] [place] [address] Dr. Mirza Sadler Chloride [Moles/Vol] 103 mmol/L Normal 98-107 [facility] Comment on above: Performed By: #### C MP, CMADM #### [facility] [address] [place] [address] Dr. Mirza Sadler CO2 [Moles/Vol] 22.3 mmol/L Normal 21.0-32.0 [facility] Comment on above: Performed By: #### C MP, CMADM #### [facility] [address] [place] [address] Dr. Mirza Sadler Creatinine [Mass/Vol] 1.81 mg/dL Critically high 0.70-1.30 [facility] Comment on above: Performed By: #### C MP, CMADM #### [facility] [address] [place] [address] Dr. Mirza Sadler EGFR-AF ETHIOPIAN 45 mL/min/1.73m2 Critically low >=60 [facility] Comment on above: Performed By: #### C MP, CMADM #### [facility] [address] [place] [address] Dr. Mirza Sadler EGFR-NON AF ETHIOPIAN 37 mL/min/1.73m2 Critically low >=60 [facility] Comment on above: Performed By: #### C MP, CMADM #### [facility] [address] [place] [address] Dr. Mirza Sadler Glucose [Mass/Vol] 161 mg/dL Critically high 74-106 T [facility] Comment on above: Performed By: #### C MP, CMADM #### [facility] [address] [place] [address] Dr. Mirza Sadler Potassium [Moles/Vol] 4.1 mmol/L Normal 3.5-5.1 [facility] Comment on above: Performed By: #### C MP, CMADM #### [facility] [address] [place] [address] Dr. Mirza Sadler Sodium [Moles/Vol] 139 mmol/L Normal 136-145 [facility] Comment on above: Performed By: #### C TANIA, CMADM #### [facility] [address] [place] [address] Dr. Mirza Sadler Urea nitrogen [Mass/Vol] 28.0 mg/dL Critically high 7.0-18.0 [facility] Comment on above: Performed By: #### C TANIA, CMADM #### [facility] [address] [place] [address] Dr. Mirza Sadler Urea nitrogen/Creatinine [Mass ratio] 15.5 mg/mg Normal [facility] Comment on above: Performed By: #### C TANIA, CMADM #### [facility] [address] [place] [address] Dr. Mirza Sadler TROPONIN, HIGH SENSITIVITYon 03-12-2022 HSTROP 47172.5 pg/mL Critically high 4.0-76.1 [facility] Comment on above: Result Comment: CUT- OFF POINTS HAVE BEEN ESTABLISHED BASED ON THE FOURTH UNIVERSAL DEFINITIONS OF MYOCARDIAL INFARCTION. THE UPPER REFERENCE LIMIT (URL) OF TROPONIN, DEFINED THE 99TH PERCENTILE OF cTnI DISTRIBUTION IN A REFERENCE POPULATION, HAS BEEN CONFIRMED THE DECISION THRESHOLD FOR TN DIAGNOSIS. Performed By: #### C TANIA, CMADM #### [facility] [address] [place] [address] Dr. Mirza Sadler BNPon 03-11-2022 Natriuretic peptide B (Bld) [Mass/Vol] 1378.0 pg/mL Critically high <=900.0 [facility] Comment on above: Performed By: #### P T, PTT #### [facility] [address] [place] [address] Dr. Mirza Sadler CARDIAC PARUL 3-6on 2 CK [Catalytic activity/Vol] 139 U/L Normal 39-308 [facility] Comment on above: Performed By: #### E RUR #### [facility] [address] [place] [address] Dr. Mirza Sadler CK.MB [Mass/Vol] 7.50 ng/mL Critically high <=3.60 [facility] Comment on above: Performed By: #### E RUR #### [facility] [address] [place] [address] Dr. Mirza Sadler HSTROP 1419.3 pg/mL Critically high 4.0-76.1 [facility] Comment on above: Result Comment: CUT- OFF POINTS HAVE BEEN ESTABLISHED BASED ON THE FOURTH UNIVERSAL DEFINITIONS OF MYOCARDIAL INFARCTION. THE UPPER REFERENCE LIMIT (URL) OF TROPONIN, DEFINED THE 99TH PERCENTILE OF cTnI DISTRIBUTION IN A REFERENCE POPULATION, HAS BEEN CONFIRMED THE DECISION THRESHOLD FOR TN DIAGNOSIS. Performed By: #### E RUR #### [facility] [address] [place] [address] Dr. Mirza Sadler CBC AUTO DIFFon 03-11-2022 BASO # 0.1 103/ul Normal 0.0-0.1 [facility] Comment on above: Performed By: #### E RUR #### [facility] [address] [place] [address] Dr. Mirza Sadler Basophils/100 WBC (Bld) 0.5 % Normal 0.2-2.0 [facility] Comment on above: Performed By: #### E RUR #### [facility] [address] [place] [address] Dr. Mirza Sadler EO # 0.2 103/ul Normal 0.0-0.7 [facility] Comment on above: Performed By: #### E RUR #### [facility] [address] [place] [address] Dr. Mirza Sadler Eosinophils/100 WBC (Bld) 1.3 % Normal 0.9-7.0 [facility] Comment on above: Performed By: #### E RUR #### [facility] [address] [place] [address] Dr. Mirza Sadler Erythrocyte distribution width (RBC) [Ratio] 14.6 % Normal 11.0-15.0 [facility] Comment on above: Performed By: #### E RUR #### [facility] [address] [place] [address] Dr. Mirza Sadler Hematocrit (Bld) [Volume fraction] 43.1 % Normal 42.0-54.0 [facility] Comment on above: Performed By: #### E RUR #### [facility] [address] [place] [address] Dr. Mirza Sadler Hemoglobin (Bld) [Mass/Vol] 14.2 g/dL Normal 14.0-18.0 [facility] Comment on above: Performed By: #### E RUR #### [facility] [address] [place] [address] Dr. Mirza Sadler IG # 0.07 10e3/ul Critically high 0.00-0.03 [facility] Comment on above: Performed By: #### E RUR #### [facility] [address] [place] [address] Dr. Mirza Sadler IG % 0.5 % Normal 0.0-0.5 [facility] Comment on above: Performed By: #### E RUR #### [facility] [address] [place] [address] Dr. Mirza Sadler LYMPH # 1.3 103/ul Normal 1.2-3.8 [facility] Comment on above: Performed By: #### E RUR #### [facility] [address] [place] [address] Dr. Mirza Sadler Lymphocytes/100 WBC (Bld) 8.6 % Critically low 20.5-60.0 [facility] Comment on above: Performed By: #### E RUR #### [facility] [address] [place] [address] Dr. Mirza Sadler MANUAL DIFF REQ NO Normal [facility] Comment on above: Performed By: #### E RUR #### [facility] [address] [address] [address] Mirza Sadler MCH (RBC) [Entitic mass] 29.3 pg Normal 25.9-34.0 [facility] Comment on above: Performed By: #### E RUR #### [facility] [address] [place] [address] Dr. Mirza Sadler MCHC (RBC) [Mass/Vol] 32.9 g/dL Normal 29.9-35.2 [facility] Comment on above: Performed By: #### E RUR #### [facility] [address] [place] [address] Dr. Mirza Sadler MCV (RBC) [Entitic vol] 88.9 fL Normal 80.0-94.0 [facility] Comment on above: Performed By: #### E RUR #### [facility] [address] [place] [address] Dr. Mirza Sadler MONO # 0.7 103/ul Normal 0.3-0.8 [facility] Comment on above: Performed By: #### E RUR #### [facility] [address] [place] [address] Dr. Mirza Sadler Monocytes/100 WBC (Bld) 4.3 % Normal 1.7-12.0 [facility] Comment on above: Performed By: #### E RUR #### [facility] [address] [place] [address] Dr. Mirza Sadler NEUT # 12.8 103/ul Critically high 1.4-6.5 [facility] Comment on above: Performed By: #### E RUR #### [facility] [address] [place] [address] Dr. Mirza Sadler Neutrophils/100 WBC (Bld) 84.8 % Critically high 43.0-75.0 [facility] Comment on above: Performed By: #### E RUR #### [facility] [address] [place] [address] Dr. Mirza Sadler Platelet mean volume (Bld) [Entitic vol] 9.9 fL Normal 9.5-13.5 [facility] Comment on above: Performed By: #### E RUR #### [facility] [address] [address] [address] Mirza Sadler PLT 201 103/ul Normal 150-450 [facility] Comment on above: Performed By: #### E RUR #### [facility] [address] [address] [address] Mirza Sadler RBC 4.85 106/ul Normal 4.70-6.10 [facility] Comment on above: Performed By: #### E RUR #### [facility] [address] [address] [address] Mirza Sadler WBC 15.0 103/ul Critically high 4.0-11.0 [facility] Comment on above: Performed By: #### E RUR #### [facility] [address] [place] [address] Dr. Mirza Sadler CULTURE BLOODon 03-11-2022 Microscopic examination of blood, culture Culture Observations: NO GROWTH AT 5 DAYS. Normal [facility] Comment on above: Performed By: #### H STROPN #### [facility] [address] [place] [address] Dr. Mirza Sadler Microscopic examination of blood, culture Culture Observations: NO GROWTH AT 5 DAYS. Normal [facility] Comment on above: Performed By: #### H STROPN #### [facility] [address] [place] [address] Dr. Mirza Sadler Covid-19 PCR ([facility])on 03-01 SARS-CoV-2 (COVID-19) RNA RAMO+probe Ql (Unsp spec) Not detected Normal NOT DETECTED [facility] Comment on above: Result Comment: When diagnostic testing is negative, the possibility of a false negative should be considered in the context of a patient's recent exposures and the presence of clinical signs and symptoms consistent with SARS-CoV-2. This test is not yet approved or cleared by the [place] FDA. When there are no FDA-approved or cleared tests available, and other criteria are met, FDA can make tests available under an emergency access mechanism called an Emergency Use Authorization (EUA). The EUA for this test is supported by the [place] of [employer] and Human Service's declaration that circumstances exist to justify the emergency use of in vitro diagnostics for the detection and/or diagnosis of the virus that causes COVID-19. This EUA will remain in effect for the duration of the COVID-19 declaration justifying emergency of IVDs, unless it is terminated or revoked by the FDA (after which the test may no longer be used). Performed By: #### H STROPN #### [facility] [address] [place] [address] Dr. Mirza Sadler ER URINE PROFILEon 2 Bilirubin Ql (U) Negative Normal NEGATIVE [facility] Comment on above: Performed By: #### E RUR #### [facility] [address] [place] [address] Dr. Mirza Sadler Clarity (U) CLEAR Normal CLEAR [facility] Comment on above: Performed By: #### E RUR #### [facility] [address] [place] [address] Dr. Mirza Sadler Color (U) LT. YELLOW Normal YELLOW [facility] Comment on above: Performed By: #### E RUR #### [facility] [address] [place] [address] Dr. Mirza GARCIAD A micrscopic examina tion will be performed if indicated. Normal [facility] Comment on above: Performed By: #### E RUR #### [facility] [address] [place] [address] Dr. Mirza Sadler Glucose Ql (U) >1000 Abnormal NEGATIVE [facility] Comment on above: Performed By: #### E RUR #### [facility] [address] [place] [address] Dr. Mirza Sadler Hemoglobin Ql (U) Negative Normal NEGATIVE [facility] Comment on above: Performed By: #### E RUR #### [facility] [address] [place] [address] Dr. Mirza Sadler Ketones Ql (U) 15 mg/dl Abnormal NEGATIVE [facility] Comment on above: Performed By: #### E RUR #### [facility] [address] [address] [address] Mirza Sadler LEUKOCYTES Negative Normal NEGATIVE [facility] Comment on above: Performed By: #### E RUR #### [facility] [address] [address] [address] Mirza Sadler Nitrite Ql (U) Negative Normal NEGATIVE [facility] Comment on above: Performed By: #### E RUR #### [facility] [address] [place] [address] Dr. Mirza Sadler pH (U) 5.0 [pH] Normal 5-9 [facility] Comment on above: Performed By: #### E RUR #### [facility] [address] [place] [address] Dr. Mirza Sadler SPEC GRAVITY 1.020 Normal 1.005-<=1. 025 [facility] Comment on above: Performed By: #### E RUR #### [facility] [address] [place] [address] Dr. Mirza Sadler UA PROTEIN TRACE Normal NEGATIVE/ TRACE [facility] Comment on above: Performed By: #### E RUR #### [facility] [address] [place] [address] Dr. Mizra Sadler UR MICRO IND NOT INDICATED Normal [facility] Comment on above: Performed By: #### E RUR #### [facility] [address] [place] [address] Dr. Mirza Sadler Urobilinogen Qn (U) 0.2 {Luisito'U}/dL Normal 0.2 - 1. 0 [facility] Comment on above: Performed By: #### E RUR #### [facility] [address] [place] [address] Dr. Mirza Sadler POINT OF CARE GLUCOSEon 03-01 Glucose [Mass/Vol] 161 mg/dL Critically high 74-106 T [facility] Comment on above: Performed By: #### P T, PTT #### [facility] [address] [place] [address] Dr. Mirza Sadler PROF 14(COMP METB)on 022 Albumin [Mass/Vol] 4.3 g/dL Normal 3.4-5.0 [facility] Comment on above: Performed By: #### P T, PTT #### [facility] [address] [place] [address] Dr. Mirza Sadler Albumin/Globulin [Mass ratio] 1.1 {ratio} Normal [facility] Comment on above: Performed By: #### P T, PTT #### [facility] [address] [address] [address] Mirza Sadler ALP [Catalytic activity/Vol] 156 U/L Critically high 46-116 [facility] Comment on above: Performed By: #### P T, PTT #### [facility] [address] [place] [address] Dr. Mirza Sadler ALT [Catalytic activity/Vol] 24 U/L Normal 16-63 [facility] Comment on above: Performed By: #### P T, PTT #### [facility] [address] [place] [address] Dr. Mirza Sadler Anion gap [Moles/Vol] 16.7 mmol/L Normal [facility] Comment on above: Performed By: #### P T, PTT #### [facility] [address] [place] [address] Dr. Mirza Sadler AST [Catalytic activity/Vol] 21 U/L Normal 15-37 [facility] Comment on above: Performed By: #### P T, PTT #### [facility] [address] [place] [address] Dr. Mirza Sadler Bilirubin [Mass/Vol] 1.1 mg/dL Critically high 0.2-1.0 [facility] Comment on above: Performed By: #### P T, PTT #### [facility] [address] [place] [address] Dr. Mirza Sadler Calcium [Mass/Vol] 8.8 mg/dL Normal 8.5-10.1 [facility] Comment on above: Performed By: #### P T, PTT #### [facility] [address] [place] [address] Dr. Mirza Sadler Chloride [Moles/Vol] 105 mmol/L Normal 98-107 [facility] Comment on above: Performed By: #### P T, PTT #### [facility] [address] [place] [address] Dr. Mirza Sadler CO2 [Moles/Vol] 25.0 mmol/L Normal 21.0-32.0 [facility] Comment on above: Performed By: #### P T, PTT #### [facility] [address] [place] [address] Dr. Mirza Sadler Creatinine [Mass/Vol] 1.57 mg/dL Critically high 0.70-1.30 [facility] Comment on above: Performed By: #### P T, PTT #### [facility] [address] [place] [address] Dr. Mirza Sadler EGFR-AF ETHIOPIAN 53 mL/min/1.73m2 Critically low >=60 [facility] Comment on above: Performed By: #### P T, PTT #### [facility] [address] [place] [address] Dr. Mirza Sadler EGFR-NON AF ETHIOPIAN 44 mL/min/1.73m2 Critically low >=60 [facility] Comment on above: Performed By: #### P T, PTT #### [facility] [address] [place] [address] Dr. Mirza Sadler Globulin (S) [Mass/Vol] 3.9 g/dL Normal [facility] Comment on above: Performed By: #### P T, PTT #### [facility] [address] [place] [address] Dr. Mirza Sadler Glucose [Mass/Vol] 188 mg/dL Critically high 74-106 [facility] Comment on above: Performed By: #### P T, PTT #### [facility] [address] [place] [address] Dr. Mirza Sadler Potassium [Moles/Vol] 3.7 mmol/L Normal 3.5-5.1 [facility] Comment on above: Performed By: #### P T, PTT #### [facility] [address] [place] [address] Dr. Mirza Sadler Protein [Mass/Vol] 8.2 g/dL Normal 6.4-8.2 [facility] Comment on above: Performed By: #### P T, PTT #### [facility] [address] [place] [address] Dr. Mirza Sadler Sodium [Moles/Vol] 143 mmol/L Normal 136-145 The [facility] Comment on above: Performed By: #### P T, PTT #### [facility] [address] [place] [address] Dr. Mirza Sadler Urea nitrogen [Mass/Vol] 20.0 mg/dL Critically high 7.0-18.0 [facility] Comment on above: Performed By: #### P T, PTT #### [facility] [address] [place] [address] Dr. Mirza Sadler Urea nitrogen/Creatinine [Mass ratio] 12.7 mg/mg Normal [facility] Comment on above: Performed By: #### P T, PTT #### [facility] [address] [place] [address] Dr. Mirza Sadler RESPIRATORY PANEL PLUSon Adenovirus Not detected Normal NOT DETECTED [facility] Comment on above: Performed By: #### P T, PTT #### [facility] [address] [place] [address] Dr. Mirza Ball Parapertusis Not detected Normal NOT DETECTED [facility] Comment on above: Performed By: #### P T, PTT #### [facility] [address] [place] [address] Dr. Mirza Ball Pertussis Not detected Normal NOT DETECTED [facility] Comment on above: Performed By: #### P T, PTT #### [facility] [address] [place] [address] Dr. Mirza Sadler Chlamydia Pneumoniae Not detected Normal NOT DETECTED [facility] Comment on above: Performed By: #### P T, PTT #### [facility] [address] [place] [address] Dr. Mirza Sadler Coronavirus 229E Not detected Normal NOT DETECTED [facility] Comment on above: Performed By: #### P T, PTT #### [facility] [address] [place] [address] Dr. Mirza Sadler Coronavirus HKU1 Not detected Normal NOT DETECTED [facility] Comment on above: Performed By: #### P T, PTT #### [facility] [address] [place] [address] Dr. Mirza Sadler Coronavirus NL63 Not detected Normal NOT DETECTED [facility] Comment on above: Performed By: #### P T, PTT #### [facility] [address] [place] [address] Dr. Mirza Sadler Coronavirus OC43 Not detected Normal NOT DETECTED [facility] Comment on above: Performed By: #### P T, PTT #### [facility] [address] [place] [address] Dr. Mirza Sadler Influenza A H1 2009 Not detected Normal NOT DETECTED [facility] Comment on above: Performed By: #### P T, PTT #### [facility] [address] [place] [address] Dr. Mirza Sadler Influenza A H3 Not detected Normal NOT DETECTED [facility] Comment on above: Performed By: #### P T, PTT #### [facility] [address] [place] [address] Dr. Mirza Sadler Influenza B Not detected Normal NOT DETECTED [facility] Comment on above: Performed By: #### P T, PTT #### [facility] [address] [place] [address] Dr. Mirza Sadler Metapneumovirus Not detected Normal NOT DETECTED [facility] Comment on above: Performed By: #### P T, PTT #### [facility] [address] [place] [address] Dr. Mirza Sadler Mycoplas. Pneumoniae Not detected Normal NOT DETECTED [facility] Comment on above: Performed By: #### P T, PTT #### [facility] [address] [place] [address] Dr. Mirza Sadler Parainfluenza 1 Not detected Normal NOT DETECTED [facility] Comment on above: Performed By: #### P T, PTT #### [facility] [address] [place] [address] Dr. Mirza Sadler Parainfluenza 2 Not detected Normal NOT DETECTED [facility] Comment on above: Performed By: #### P T, PTT #### [facility] [address] [place] [address] Dr. Mirza Sadler Parainfluenza 3 Not detected Normal NOT DETECTED [facility] Comment on above: Performed By: #### P T, PTT #### [facility] [address] [place] [address] Dr. Mirza Sadler Parainfluenza 4 Not detected Normal NOT DETECTED [facility] Comment on above: Performed By: #### P T, PTT #### [facility] [address] [place] [address] Dr. Mirza Sadler Rhino/Enterovirus Not detected Normal NOT DETECTED [facility] Comment on above: Performed By: #### P T, PTT #### [facility] [address] [place] [address] Dr. Mirza Sadler RP2 Header 1 RESPIRATORY PANEL: VIRUSES Normal [facility] Comment on above: Performed By: #### P T, PTT #### [facility] [address] [place] [address] Dr. Mirza Sadler RP2 Header 2 RESPIRATORY PANEL: BACTERIA Normal [facility] Comment on above: Performed By: #### P T, PTT #### [facility] [address] [place] [address] Dr. Mirza Sadler RSV Not detected Normal NOT DETECTED [facility] Comment on above: Performed By: #### P T, PTT #### [facility] [address] [place] [address] Dr. Mirza Sadler SARS-CoV-2 (COVID-19) RNA RAMO+probe Ql (Unsp spec) Not detected Normal NOT DETECTED [facility] Comment on above: Performed By: #### P T, PTT #### [facility] [address] [place] [address] Dr. Mirza Sadler TROPONIN, HIGH SENSITIVITYon 03-11-2022 HSTROP 32232.8 pg/mL Critically high 4.0-76.1 [facility] Comment on above: Result Comment: CUT- OFF POINTS HAVE BEEN ESTABLISHED BASED ON THE FOURTH UNIVERSAL DEFINITIONS OF MYOCARDIAL INFARCTION. THE UPPER REFERENCE LIMIT (URL) OF TROPONIN, DEFINED THE 99TH PERCENTILE OF cTnI DISTRIBUTION IN A REFERENCE POPULATION, HAS BEEN CONFIRMED THE DECISION THRESHOLD FOR [place] DIAGNOSIS. Performed By: #### C MP, CMADM #### [facility] [address] [address] [address] Mirza Sadler HSTROP 41.0 pg/mL Normal 4.0-76.1 [facility] Comment on above: Result Comment: CUT- OFF POINTS HAVE BEEN ESTABLISHED BASED ON THE FOURTH UNIVERSAL DEFINITIONS OF MYOCARDIAL INFARCTION. THE UPPER REFERENCE LIMIT (URL) OF TROPONIN, DEFINED THE 99TH PERCENTILE OF cTnI DISTRIBUTION IN A REFERENCE POPULATION, HAS BEEN CONFIRMED THE DECISION THRESHOLD FOR [place] DIAGNOSIS. Performed By: #### P T, PTT #### [facility] [address] [address] [address] Mirza Sadler XR CHEST 1 Von 03-11-2022 XR CHEST 1 V EXAM: XR CHEST 1 V HISTORY: SHORTNESS OF BREATH COMPARISON: Correlation is made with CT chest examination dated 03/02/2022. TECHNIQUE: One view of the chest was obtained. FINDINGS: There are postsurgical changes of the chest with median sternotomy wires in place. The cardiac silhouette is stable in size. There are mixed bilateral interstitial and airspace opacities in the right greater than left lungs. There is no significant pneumothorax or left pleural effusion. There is a small right pleural effusion. No acute osseous abnormality is seen. IMPRESSION: 1. Mixed bilateral interstitial and airspace opacities in the right greater than left lungs could represent edema and/or multifocal pneumonia. 2. Small right pleural effusion. Electronically authenticated by: Kayden ACEVES Date: 2022-03-11 05:42 Normal [facility] NM MUGAon 03-09-2022 NM MUGA EXAMINATION: NM MUGA HISTORY: Acute on chronic systolic heart failure COMPARISON: No relevant comparison available. TECHNIQUE: After obtaining the patient's consent, 12 mg pyrophosphate, 25.6 mCi technetium Tc-99m pertechnetate labeled autologous red blood cells were injected intravenously using the in vivo method. Planar wall motion imaging was performed, followed by quantitative analysis and left ventricular ejection fraction determination. FINDINGS: WALL MOTION: Normal. VENTRICLES: Appear grossly normal in size and shape. OTHER: 431. Extensive, 1628 beats rejected due to cardiac arrhythmia Left ventricular ejection fraction: 53%. IMPRESSION: Left ventricular ejection fraction calculated to be 53% Electronically authenticated by: SHANNON LANDIS Date: 2022-03-09 12:26 Normal [facility] CT CHEST WO CONon 03-02-2022 CT CHEST WO CON EXAMINATION: CT CHES T WO CON HISTORY: Solitary nodule of lung ; follow-up pneumonia COMPARISON: CT chest 01/15/2022 TECHNIQUE: Axial, Coronal, and Sagittal images were created without the administration of IV contrast material. Dose reduction techniques were achieved by using automated exposure control and/or adjustment of mA and/or kV according to patient size and/or use of iterative reconstruction technique. FINDINGS: LUNGS: Patchy and strandy opacities within right upper lobe anterior segment and right middle lobe with focal areas of greater density. New 5 mm opacity within left upper lobe lateral to the hilum. PLEURA: Right pleural effusion 1.4 cm in thickness. VASCULATURE: No abnormality. MIKE: No mass or adenopathy. MEDIASTINUM: No mass or adenopathy. CARDIAC: Marked atherosclerotic coronary artery disease. No cardiac enlargement or pericardial effusion. AORTA: No aneurysm or dissection. CHEST WALL: No mass or axillary adenopathy. BONES: No bone lesion or fracture. LIMITED ABDOMEN: No suspicious findings. Limited images of the upper abdomen. OTHER: Negative. IMPRESSION: 1. Moderate infiltrates within the right upper lobe and middle lobe; slightly improved compared to prior study. An area of greatest density could still represent a mass and follow-up imaging in 1-2 months to document further clearing is recommended. Consider follow-up with CT of chest with IV contrast. 2. Moderate right pleural effusion, but improved compared to prior study. Clearing of previously seen left pleural effusion. Electronically authenticated by: HIGINIO FLANAGAN Date: 2022-03-02 08:52 Normal [facility] Creatinine and Glomerular fi ltration rate.predicted panel (S/P/Bld)Ordered By: Gagan Shahid on 01-17-2022 Creatinine [Mass/Vol] 1.53 mg/dL 0.64-1.27 [facility] Estimated glomerular filtrat ion rate (GFR) non- AmericanOrdered By: Gagan Shahid on 01-17-2022 GFR/1.73 sq M.predicted among non-blacks MDRD (S/P/Bld) [Vol rate/Area] 45 mL/Min [facility] Glucose Glucometer (BldC) [M ass/Vol]Ordered By: Gagan Shahid on 01-17-2022 Glucose [Mass/Vol] 178 mg/dL [facility] Comment on above: Random Glucose Refer ence Range is dependent on time and content of last meal. Glucose of more than 200 mg/dL in a nonstressed, ambulatory subject supports the diagnosis of Diabetes Mellitus. No Panel InformationOrdered By: Gagan Shahid on 01-17-2022 Estimated GFR () 55 mL/Min [facility] Comment on above: GFR estimated refere nce range: According to KDOQI guidelines, <60 ml/min/1.73m2 is sufficient to diagnose a patient with chronic kidney disease. Pharmacy Creatinine Clearance (Chem 42.00 [facility] Serum or plasma anion gap de terminationOrdered By: Gagan Shahid on 01-17-2022 Anion gap [Moles/Vol] 12.0 mmol/L 6.0-15.0 [facility] Serum or plasma calcium radha urement (mass/volume)Ordered By: Gagan Shahid on 01-17-2022 Calcium [Mass/Vol] 9.0 mg/dL 8.2-10.2 [facility] Serum or plasma chloride shanae surement (moles/volume)Ordered By: Gagan Shahid on 01-17-2022 Chloride [Moles/Vol] 107 mmol/L 95-114 [facility] Serum or plasma glucose radha urement (mass/volume)Ordered By: Gagan Shahid on 01-17-2022 Glucose [Mass/Vol] 142 mg/dL 70-100 [facility] Comment on above: ADA recommended refe rence rangeRandom Glucose Reference Range is dependent on time and content of last meal. Glucose of more than 200 mg/dL in a nonstressed, ambulatory subject supports the diagnosis of Diabetes Mellitus. Serum or plasma potassium me asurement (moles/volume)Ordered By: Gagna Shahid on 01-17-2022 Potassium [Moles/Vol] 3.5 mmol/L 3.5-5.1 [facility] Serum or plasma sodium measu rement (moles/volume)Ordered By: Gagan Shahid on 01-17-2022 Sodium [Moles/Vol] 137 mmol/L 136-146 [facility] Serum or plasma total carbon dioxide measurement (moles/volume)Ordered By: Gagan Shahid on 01-17-2022 CO2 [Moles/Vol] 21.5 mmol/L 22.0-30.0 [facility] [place] Serum or plasma urea nitroge n measurement (mass/volume)Ordered By: Gagan Shahid on 01-17-2022 Urea nitrogen [Mass/Vol] 24 mg/dL 12-22 [facility] Activated partial thrombopla stin time (aPTT) in platelet poor plasma by coagulation aOrdered By: Gagan Shahid on 01-16-2022 aPTT Coag (PPP) [Time] 42.1 s 25.1-36.5 [facility] Basophils Auto (Bld) [#/Vol] Ordered By: Gagan Shahid on 01-16-2022 Basophils (Bld) [#/Vol] 0.0 10*3/uL 0.0-0.2 [facility] Basophils/100 WBC Auto (Bld) Ordered By: Gagan Shahid on 01-16-2022 Basophils/100 WBC (Bld) 0.5 % . [facility] Creatine kinase [Enzymatic a ctivity/volume] in Serum or PlasmaOrdered By: Gagan Shahid on 01-16-2022 CK [Catalytic activity/Vol] 92 U/L [facility] Eosinophils Auto (Bld) [#/Vo l]Ordered By: Gagan Shahid on 01-16-2022 Eosinophils (Bld) [#/Vol] 0.2 10*3/uL 0.0-0.45 [facility] Eosinophils/100 WBC Auto (Bl d)Ordered By: Gagan Shahid on 01-16-2022 Eosinophils/100 WBC (Bld) 2.4 % . [facility] Erythrocyte distribution wid th Auto (RBC) [Ratio]Ordered By: Gagan Shahid on 01-16-2022 Erythrocyte distribution width (RBC) [Ratio] 14.6 % 12.0-14.8 [facility] Hematocrit Auto (Bld) [Volum e fraction]Ordered By: Gagan Shahid on 01-16-2022 Hematocrit (Bld) [Volume fraction] 43.4 % 38.8-50.0 [facility] Hemoglobin [Mass/volume] in BloodOrdered By: Gagan Shahid on 01-16-2022 Hemoglobin (Bld) [Mass/Vol] 14.4 g/dL 13.0-17.0 [facility] - Chemistry and C hemistry - challengeOrdered By: Gagan Shahid on 01-16-2022 Magnesium [Mass/Vol] 1.9 mg/dL 1.6-2.6 [facility] - CoagulationOrde red By: Gagan Shahid on 01-16-2022 PT Coag (PPP) [Time] 15.7 s 9.0-12.9 [facility] - Hematology and Cell countsOrdered By: Gagan Shahid on 01-16-2022 Nucleated RBC/100 WBC (Bld) [Ratio] 0.1 % 0-0.5 [facility] Leukocytes [#/volume] in Blo od by Automated countOrdered By: Gagan Shahid on 01-16-2022 WBC (Bld) [#/Vol] 8.2 10*3/uL 4.5-11.0 [facility] Lymphocytes Auto (Bld) [#/Vo l]Ordered By: Gagan Shahid on 01-16-2022 Lymphocytes (Bld) [#/Vol] 1.6 10*3/uL 1.00-4.8 [facility] Lymphocytes/100 WBC Auto (Bl d)Ordered By: Gagan Shahid on 01-16-2022 Lymphocytes/100 WBC (Bld) 19.5 % . [facility] MCH Auto (RBC) [Entitic mass ]Ordered By: Gagan Shahid on 01-16-2022 MCH (RBC) [Entitic mass] 29.4 pg 27.5-35.2 [facility] MCHC Auto (RBC) [Mass/Vol]Or dered By: Gagan Shahid on 01-16-2022 MCHC (RBC) [Mass/Vol] 33.2 g/dL 32.5-35.6 [facility] MCV Auto (RBC) [Entitic vol] Ordered By: Gagan Shahid on 01-16-2022 MCV (RBC) [Entitic vol] 88.5 fL 83.5-101 [facility] Monocytes Auto (Bld) [#/Vol] Ordered By: Gagan Shahid on 01-16-2022 Monocytes (Bld) [#/Vol] 0.8 10*3/uL 0.0-0.8 [facility] Monocytes/100 WBC Auto (Bld) Ordered By: Gagan Shahid on 01-16-2022 Monocytes/100 WBC (Bld) 9.1 % . [facility] Neutrophils Auto (Bld) [#/Vo l]Ordered By: Gagan Shahid on 01-16-2022 Neutrophils (Bld) [#/Vol] 5.6 10*3/uL 1.8-7.7 [facility] Neutrophils/100 WBC Auto (Bl d)Ordered By: Gagan Shahid on 01-16-2022 Neutrophils/100 WBC (Bld) 68.5 % . [facility] No Panel InformationOrdered By: Gagan Shahid on 01-16-2022 Bedside Glucose Comment Glu2: cleaned meter [facility] Platelet mean volume Auto (B ld) [Entitic vol]Ordered By: Gagan Shahid on 01-16-2022 Platelet mean volume (Bld) [Entitic vol] 8.4 fL 6.6-10.1 [facility] Platelet poor plasma interna tional normalized ratio (INR) by coagulation assay (relatOrdered By: Gagan Shahid on 01-16-2022 INR Coag (PPP) [Relative time] 1.4 {INR} [facility] Comment on above: INR Therapeutic Rang e A) Pre- and Peroperative OAT started two weeks before surgery. NOT HIP SURGERY: 1.5 - 2.5 HIP SURGERY: 2 - 3B) Primary and secondary prevention of venous THROMBOSIS: 2 - 3C) Active venous thrombosis, pulmonary embolismand prevention of recurrent venous thrombosis: 2 - 3D) Prevention of arterial thromboembolismincluding patients with mechanical heart valves: 3 - 4.5 Platelets Auto (Bld) [#/Vol] Ordered By: Gagan Shahid on 01-16-2022 Platelets (Bld) [#/Vol] 178 10*3/uL 150-450 [facility] RBC Auto (Bld) [#/Vol]Ordere d By: Gagan Shahid on 01-16-2022 RBC (Bld) [#/Vol] 4.90 10*6/uL 3.90-5.60 [facility] Serum or plasma creatine kin ase MB (CKMB)/total creatine kinase (CK) ratio by calculaOrdered By: Gagan Shahid on 01-16-2022 CK.MB Calc [Catalytic fraction] 3.2 % 0.00-2.50 [facility] Serum or plasma creatine kin ase MB measurement (mass/volume)Ordered By: Gagan Shahid on 01-16-2022 CK.MB [Mass/Vol] 3.0 ng/mL 0.6-6.3 [facility] [place] Troponin I.cardiac [Mass/vol ume] in Serum or Plasma by High sensitivity methodOrdered By: Gagan Shahid on 01-16-2022 Troponin I.cardiac High sensitivity method [Mass/Vol] 525 pg/mL 0-20 [facility] Comment on above: Critical valueresult calledat 1844 on 01/16/22 BNPon 01-15-2022 Natriuretic peptide B (Bld) [Mass/Vol] 1012.0 pg/mL Critically high <=900.0 [facility] Comment on above: Performed By: #### B TECHNICAL ACCOUNT MANAGER #### [facility] [address] [address] [address] Mirza Sadler CARDIAC PARUL ADMITon 022 CK [Catalytic activity/Vol] 93 U/L Normal 39-308 [facility] Comment on above: Performed By: #### C TEGAN MARIN #### [facility] [address] [address] [address] Mirza Sadler CK.MB [Mass/Vol] 1.67 ng/mL Normal <=3.60 [facility] Comment on above: Performed By: #### C TEGAN MARIN #### [facility] [address] [address] [address] Mirza Sadler HSTROP 17.1 pg/mL Normal 4.0-76.1 [facility] Comment on above: Result Comment: CUT- OFF POINTS HAVE BEEN ESTABLISHED BASED ON THE FOURTH UNIVERSAL DEFINITIONS OF MYOCARDIAL INFARCTION. THE UPPER REFERENCE LIMIT (URL) OF TROPONIN, DEFINED THE 99TH PERCENTILE OF cTnI DISTRIBUTION IN A REFERENCE POPULATION, HAS BEEN CONFIRMED THE DECISION THRESHOLD FOR [place] DIAGNOSIS. Performed By: #### C DOM MARINDM #### [facility] [address] [place] [address] Dr. Mirza Sadler RACHEL 63 ng/mL Normal 16-96 [facility] [facility] Comment on above: Performed By: #### C TEGAN MARIN #### [facility] [address] [place] [address] Dr. Mirza Sadler CBC AUTO DIFFon 01-15-2022 BASO # 0.1 103/ul Normal 0.0-0.1 [facility] Comment on above: Performed By: #### E RUR #### [facility] [address] [place] [address] Dr. Mirza Sadler Basophils/100 WBC (Bld) 0.9 % Normal 0.2-2.0 [facility] Comment on above: Performed By: #### E RUR #### [facility] [address] [place] [address] Dr. Mirza Sadler EO # 0.3 103/ul Normal 0.0-0.7 [facility] Comment on above: Performed By: #### E RUR #### [facility] [address] [place] [address] Dr. Mirza Sadler Eosinophils/100 WBC (Bld) 3.1 % Normal 0.9-7.0 [facility] Comment on above: Performed By: #### E RUR #### [facility] [address] [place] [address] Dr. Mirza Sadler Erythrocyte distribution width (RBC) [Ratio] 14.2 % Normal 11.0-15.0 [facility] Comment on above: Performed By: #### E RUR #### [facility] [address] [place] [address] Dr. Mirza Sadler Hematocrit (Bld) [Volume fraction] 44.4 % Normal 42.0-54.0 [facility] Comment on above: Performed By: #### E RUR #### [facility] [address] [place] [address] Dr. Mirza Sadler Hemoglobin (Bld) [Mass/Vol] 14.4 g/dL Normal 14.0-18.0 [facility] Comment on above: Performed By: #### E RUR #### [facility] [address] [place] [address] Dr. Mirza Sadler IG # 0.03 10e3/ul Normal 0.00-0.03 [facility] Comment on above: Performed By: #### E RUR #### [facility] [address] [place] [address] Dr. Mirza Sadler IG % 0.3 % Normal 0.0-0.5 [facility] Comment on above: Performed By: #### E RUR #### [facility] [address] [place] [address] Dr. Mirza Sadler LYMPH # 1.6 103/ul Normal 1.2-3.8 [facility] Comment on above: Performed By: #### E RUR #### [facility] [address] [place] [address] Dr. Mirza Sadler Lymphocytes/100 WBC (Bld) 16.8 % Critically low 20.5-60.0 [facility] Comment on above: Performed By: #### E RUR #### [facility] [address] [place] [address] Dr. Mirza Sadler MANUAL DIFF REQ NO Normal [facility] Comment on above: Performed By: #### E RUR #### [facility] [address] [place] [address] Dr. Mirza Sadler MCH (RBC) [Entitic mass] 29.4 pg Normal 25.9-34.0 [facility] Comment on above: Performed By: #### E RUR #### [facility] [address] [place] [address] Dr. Mirza Sadler MCHC (RBC) [Mass/Vol] 32.4 g/dL Normal 29.9-35.2 [facility] Comment on above: Performed By: #### E RUR #### [facility] [address] [place] [address] Dr. Mirza Sadler MCV (RBC) [Entitic vol] 90.6 fL Normal 80.0-94.0 [facility] Comment on above: Performed By: #### E RUR #### [facility] [address] [place] [address] Dr. Mirza Sadler MONO # 0.5 103/ul Normal 0.3-0.8 [facility] Comment on above: Performed By: #### E RUR #### [facility] [address] [place] [address] Dr. Mirza Sadler Monocytes/100 WBC (Bld) 5.9 % Normal 1.7-12.0 [facility] Comment on above: Performed By: #### E RUR #### [facility] [address] [place] [address] Dr. Mirza Sadler NEUT # 6.7 103/ul Critically high 1.4-6.5 [facility] Comment on above: Performed By: #### E RUR #### [facility] [address] [place] [address] Dr. Mirza Sadler Neutrophils/100 WBC (Bld) 73.0 % Normal 43.0-75.0 [facility] Comment on above: Performed By: #### E RUR #### [facility] [address] [place] [address] Dr. Mirza Sadler Platelet mean volume (Bld) [Entitic vol] 10.0 fL Normal 9.5-13.5 [facility] Comment on above: Performed By: #### E RUR #### [facility] [address] [place] [address] Dr. Mirza Sadler PLT 190 103/ul Normal 150-450 [facility] Comment on above: Performed By: #### E RUR #### [facility] [address] [place] [address] Dr. Mirza Sadler RBC 4.90 106/ul Normal 4.70-6.10 [facility] Comment on above: Performed By: #### E RUR #### [facility] [address] [place], [place] [address] Dr. Mirza Sadler WBC 9.2 103/ul Normal 4.0-11.0 [facility] Comment on above: Performed By: #### E RUR #### [facility] [address] [place], [place] [address] CHEST WO CONon 01-15-2022 CT CHEST WO CON EXAMINATION: CT CHES T WO CON HISTORY: SHORTNESS OF BREATH ; mass versus chronic infiltrates on chest x-rays COMPARISON: CT abdomen pelvis 10/03/2021, XR chest 01/15/2022, 12/08/2021, 10/27/2021, 07/11/2020 TECHNIQUE: Multi-planar CT images were created with IV contrast. Axial, Coronal, and Sagittal images. Dose reduction techniques were achieved by using automated exposure control and/or adjustment of mA and/or kV according to patient size and/or use of iterative reconstruction technique. 3-D reconstruction was performed on a separate workstation. FINDINGS: VASCULATURE: No pulmonary embolism or abnormal opacity. LUNGS: Patchy and dense confluent opacities throughout the right upper lobe small amount within the right lower lobe. Dense, 1.7 cm rounded area which may represent round pneumonia or mass. PLEURA: Bilateral pleural effusions, 3.8 cm in thickness on right, 1.1 cm on left. MIKE: Mild adenopathy. MEDIASTINUM: Mild adenopathy. CARDIAC: Prominent atherosclerotic coronary artery disease. No cardiac enlargement or pericardial effusion. AORTA: No aneurysm or dissection. CHEST WALL: No mass or axillary adenopathy. BONES: No bone lesion or fracture. LIMITED ABDOMEN: No suspicious findings. Limited images of the upper abdomen. OTHER: Negative. IMPRESSION: 1. Large area of dense heterogeneous infiltrates within right upper lobe suspected to represent pneumonia. A 1.7 cm rounded area may represent a mass. Mild right hilar and mediastinal lymphadenopathy, likely reactive. Follow-up CT imaging in one month following treatment is recommended to document clearing and to exclude a mass. 2. Large right, small left pleural effusion. 3. Prominent atherosclerotic coronary artery disease. Electronically authenticated by: HIGINIO FLANAGAN Date: 2022-01-15 08:19 Normal [facility] CULTURE BLOODon 01-15-2022 Microscopic examination of blood, culture Culture Observations: NO GROWTH AT 5 DAYS. Normal [facility] Comment on above: Performed By: #### H STROPN #### [facility] [address] [place] [address] Dr. Mirza Sadler Microscopic examination of blood, culture Culture Observations: NO GROWTH AT 5 DAYS. Normal [facility] Comment on above: Performed By: #### B [id number] #### [facility] [address] [place] [address] [address] Mirza Sadler Covid-19 PCR ([facility])on 12-30 SARS-CoV-2 (COVID-19) RNA RAMO+probe Ql (Unsp spec) Not detected Normal NOT DETECTED [facility] Comment on above: Result Comment: When diagnostic testing is negative, the possibility of a false negative should be considered in the context of a patient's recent exposures and the presence of clinical signs and symptoms consistent with SARS-CoV-2. This test is not yet approved or cleared by the [place] FDA. When there are no FDA-approved or cleared tests available, and other criteria are met, FDA can make tests available under an emergency access mechanism called an Emergency Use Authorization (EUA). The EUA for this test is supported by the [place] [employer] and Human Service's declaration that circumstances exist to justify the emergency use of in vitro diagnostics for the detection and/or diagnosis of the virus that causes COVID-19. This EUA will remain in effect for the duration of the COVID-19 declaration justifying emergency of IVDs, unless it is terminated or revoked by the FDA (after which the test may no longer be used). Performed By: #### B TECHNICAL ACCOUNT MANAGER #### [facility] [address] [place] [address] Dr. Mirza Sadler ER URINE PROFILEon 2 Bilirubin Ql (U) Negative Normal NEGATIVE [facility] Comment on above: Performed By: #### C MP, CMADM #### [facility] [address] [place] [address] Dr. Mirza Sadler Clarity (U) CLEAR Normal CLEAR [facility] Comment on above: Performed By: #### C MP, CMADM #### [facility] [address] [place] [address] [address] Mirza Sadler Color (U) LT. YELLOW Normal YELLOW [facility] Comment on above: Performed By: #### C MP, CMADM #### [facility] [address] [place] [address] Dr. Mirza BUSTILLO A micrscopic examina tion will be performed if indicated. Normal [facility] Comment on above: Performed By: #### C MP, CMADM #### [facility] [address] [place] [address] Dr. Mirza Sadler Glucose Ql (U) >1000 Abnormal NEGATIVE [facility] Comment on above: Performed By: #### C MP, CMADM #### [facility] [address] [place] [address] Dr. Mirza Sadler Hemoglobin Ql (U) Negative Normal NEGATIVE [facility] Comment on above: Performed By: #### C MP, CMADM #### [facility] [address] [place] [address] Dr. Mirza Sadler Ketones Ql (U) TRACE Abnormal NEGATIVE [facility] Comment on above: Performed By: #### C MP, CMADM #### [facility] [address] [place] [address] Dr. Mirza Sadler LEUKOCYTES Negative Normal NEGATIVE [facility] Comment on above: Performed By: #### C TANIA, CMADM #### [facility] [address] [place] [address] [address] Mirza Sadler Nitrite Ql (U) Negative Normal NEGATIVE [facility] Comment on above: Performed By: #### C TANIA, CMADM #### [facility] [address] [place] [address] Dr. Mirza Sadler pH (U) 5.5 [pH] Normal 5-9 [facility] Comment on above: Performed By: #### C TANIA, CMADM #### [facility] [address] [place] [address] Dr. Mirza Sadler SPEC GRAVITY 1.020 Normal 1.005-<=1. 025 [facility] Comment on above: Performed By: #### C TANIA, CMADM #### [facility] [address] [place] [address] Dr. Mirza Sadler UA PROTEIN TRACE Normal NEGATIVE/ TRACE [facility] Comment on above: Performed By: #### C MP, CMADM #### [facility] [address] [place] [address] [address] Mirza Sadler UR MICRO IND NOT INDICATED Normal [facility] Comment on above: Performed By: #### C MP, CMADM #### [facility] [address] [place] [address] Dr. Mirza Sadler Urobilinogen Qn (U) 0.2 {Luisito'U}/dL Normal 0.2 - 1. 0 [facility] Comment on above: Performed By: #### C TANIA, CMADM #### [facility] [address] [place] [address] Dr. Mirza Sadler LACTATE/LACTIC ACIDon 2021 Lactate [Moles/Vol] 0.8 mmol/L Normal 0.4-1.[address] [facility] Comment on above: Performed By: #### P T, PTT #### [facility] [address] [place] [address] Dr. Mirza Sadler PROF 14(COMP METB)on 022 Albumin [Mass/Vol] 4.4 g/dL Normal 3.4-5.0 [facility] Comment on above: Performed By: #### C MP, CMADM #### [facility] [address] [place] [address] Dr. Mirza Sadler Albumin/Globulin [Mass ratio] 1.3 {ratio} Normal [facility] Comment on above: Performed By: #### C TANIA, CMADM #### [facility] [address] [place] [address] Dr. Mirza Sadler ALP [Catalytic activity/Vol] 155 U/L Critically high 46-116 [facility] Comment on above: Performed By: #### C MP, CMADM #### [facility] [address] [place] [address] [address] Mirza Sadler ALT [Catalytic activity/Vol] 27 U/L Normal 16-63 [facility] Comment on above: Performed By: #### C TANIA, CMADM #### [facility] [address] [address] [address] Mirza Sadler Anion gap [Moles/Vol] 14.9 mmol/L Normal [facility] Comment on above: Performed By: #### C TANIA, CMADM #### [facility] [address] [place] [address] [address] Mirza Sadler AST [Catalytic activity/Vol] 22 U/L Normal 15-37 [facility] Comment on above: Performed By: #### C TANIA, CMADM #### [facility] [address] [place] [address] Dr. Mirza Sadler Bilirubin [Mass/Vol] 0.8 mg/dL Normal 0.2-1.0 [facility] Comment on above: Performed By: #### C TANIA, CMADM #### [facility] [address] [address] [address] Mirza Sadler Calcium [Mass/Vol] 8.8 mg/dL Normal 8.5-10.1 [facility] Comment on above: Performed By: #### C TANIA, CMADM #### [facility] [address] [place] [address] [address] Mirza Sadler Chloride [Moles/Vol] 106 mmol/L Normal 98-107 [facility] Comment on above: Performed By: #### C TANIA, CMADM #### [facility] [address] [place] [address] [address] Mirza Sadler CO2 [Moles/Vol] 23.9 mmol/L Normal 21.0-32.0 [facility] Comment on above: Performed By: #### C TANIA, CMADM #### [facility] [address] [address] [address] Mirza Sadler Creatinine [Mass/Vol] 1.51 mg/dL Critically high 0.70-1.30 [facility] Comment on above: Performed By: #### C TANIA, CMADM #### [facility] [address] [address] [address] Mirza Sadler EGFR-AF ETHIOPIAN 56 mL/min/1.73m2 Critically low >=60 [facility] Comment on above: Performed By: #### C MP, CMADM #### [facility] [address] [place] [address] [address] Mirza Sadler EGFR-NON AF ETHIOPIAN 46 mL/min/1.73m2 Critically low >=60 [facility] Comment on above: Performed By: #### C MP, CMADM #### [facility] [address] [place] [address] [address] Mirza Sadler Globulin (S) [Mass/Vol] 3.4 g/dL Normal [facility] Comment on above: Performed By: #### C MP, CMADM #### [facility] [address] [place] [address] [address] Mirza Sadler Glucose [Mass/Vol] 189 mg/dL Critically high 74-106 [facility] Comment on above: Performed By: #### C MP, CMADM #### [facility] [address] [address] [address] Mirza Sadler Potassium [Moles/Vol] 3.8 mmol/L Normal 3.5-5.1 [facility] Comment on above: Performed By: #### C MP, CMADM #### [facility] [address] [place] [address] [address] Mirza Sadler Protein [Mass/Vol] 7.8 g/dL Normal 6.4-8.2 The [facility] Comment on above: Performed By: #### C MP, CMADM #### [facility] [address] [address] [address] Mirza Sadler Sodium [Moles/Vol] 141 mmol/L Normal 136-145 [facility] Comment on above: Performed By: #### C MP, CMADM #### [facility] [address] [address] [address] Mirza Sadler Urea nitrogen [Mass/Vol] 22.0 mg/dL Critically high 7.0-18.0 [facility] Comment on above: Performed By: #### C TANIA, CMADM #### [facility] [address] [place] [address] Dr. Mirza Sadler Urea nitrogen/Creatinine [Mass ratio] 14.6 mg/mg Normal [facility] Comment on above: Performed By: #### C MP, CMADM #### [facility] [address] [place] [address] Dr. Mirza Sadler PROTIMEon 01-15-2022 INR Coag (PPP) [Relative time] 1.10 {INR} Normal [facility] Comment on above: Performed By: #### E RUR #### [facility] [address] [place] [address] Dr. Mirza Sadler INR GUIDELINES SEE BELOW Normal [facility] Comment on above: Result Comment: RIVKA RED INR: 2.0 - 3.0 CONDITIONS NOT LISTED BELOW 2.5 - 3.5 FOR PROSTHETIC HEART VALVE REPLACEMENT 2.5 - 3.5 RECURRENT THROMBOSIS Performed By: #### E RUR #### [facility] [address] [place] [address] Dr. Mirza Sadler PT Coag (PPP) [Time] 11.8 s Critically high 9.0-11.6 [facility] Comment on above: Performed By: #### E RUR #### [facility] [address] [place] [address] Dr. Mirza Sadler PTTon 01-15-2022 aPTT Coag (Bld) [Time] 29.0 s Normal 22.3-36.2 [facility] Comment on above: Performed By: #### E RUR #### [facility] [address] [place] [address] Dr. Mirza Sadler TROPONIN, HIGH SENSITIVITYon 01-15-2022 HSTROP 1786.2 pg/mL Critically high 4.0-76.1 [facility] Comment on above: Result Comment: CUT- OFF POINTS HAVE BEEN ESTABLISHED BASED ON THE FOURTH UNIVERSAL DEFINITIONS OF MYOCARDIAL INFARCTION. THE UPPER REFERENCE LIMIT (URL) OF TROPONIN, DEFINED THE 99TH PERCENTILE OF cTnI DISTRIBUTION IN A REFERENCE POPULATION, HAS BEEN CONFIRMED THE DECISION THRESHOLD FOR [place] DIAGNOSIS. Performed By: #### H STROPN #### [facility] [address] [place], [place] [address] Dr. Mirza Sadler HSTROP 669.3 pg/mL Critically high 4.0-76.1 [facility] Comment on above: Result Comment: CUT- OFF POINTS HAVE BEEN ESTABLISHED BASED ON THE FOURTH UNIVERSAL DEFINITIONS OF MYOCARDIAL INFARCTION. THE UPPER REFERENCE LIMIT (URL) OF TROPONIN, DEFINED THE 99TH PERCENTILE OF cTnI DISTRIBUTION IN A REFERENCE POPULATION, HAS BEEN CONFIRMED THE DECISION THRESHOLD FOR TN DIAGNOSIS. Performed By: #### H STROPN #### [facility] [address] [place], [place] [address] Dr. Mirza Sadler XR CHEST 1 Von 01-15-2022 XR CHEST 1 V EXAM: XR CHEST 1 V 01/15/2022 6:23 AM EDT [id number] CLINICAL STATEMENT: SHORTNESS OF BREATH COMPARISON: 12/08/2021 TECHNIQUE: Single AP radiograph of the chest is submitted. FINDINGS: There is increased bronchovascular lung markings with right perihilar airspace disease. The cardiac silhouette is normal. The costophrenic recesses are sharp. No pneumothorax. The bony elements are unremarkable. IMPRESSION: Increased bronchovascular lung markings with right perihilar airspace disease. FOLLOW-UP: Follow-up as clinically indicated. Electronically authenticated by: WAYNE CASEY Date: 2022-01-15 06:42 Normal [facility] A1C HEMOGLOBINon 12-18-2021 HbA1c (Bld) [Mass fraction] 6.2 % [employer] Other Glucose - FINGER STICKon Glucose [Mass/Vol] 120 mg/dL [employer] Other HbA1c (Bld) [Mass fraction]o n 12-18-2021 A1C HEMOGLOBIN [employer] Other XR CHEST 2 Von 12-08-2021 XR CHEST 2 V EXAMINATION: XR CHES T 2 V HISTORY: Pneumonia follow-up COMPARISON: XR chest 10/07/2021 FINDINGS: LUNGS: Mild patchy opacities within right midlung. Left lung is clear. VASCULATURE: No increased pulmonary vasculature. PLEURA: No pneumothorax, effusion, or pleural thickening. CARDIAC: No cardiomegaly or cardiac silhouette abnormality. MEDIASTINUM: Prior sternotomy. BONES: No fracture or visible bone lesion. OTHER: Negative. IMPRESSION: 1. Persistent mild-moderate infiltrates within right midlung, with interval clearing of the right basilar infiltrates. Follow-up to document clearing and to exclude a mass is recommended. Electronically authenticated by: HIGINIO FLANAGAN Date: 2021-12-08 16:07 Normal [facility] PTH INTACTon 12-01-2021 PTH, Intact 15 pg/mL Normal 15-65 [facility] Comment on above: Performed By: #### C MP, CMADM #### [facility] [address] [address] [address] Mirza Sadler VIT D 25-[place] LABCORPon 2021 Vitamin D, 25-Hydroxy 41.2 ng/mL Normal 30.0-100.0 [facility] Comment on above: Result Comment: [place] min D deficiency has been defined by the [place] of [employer] and an Endocrine Society practice guideline as a level of serum 25-OH vitamin D less than 20 ng/mL (1,2). The Endocrine Society went on to further define vitamin D insufficiency as a level between 21 and 29 ng/mL (2). 1. IOM ([place] of [employer]). 2010. Dietary reference intakes for calcium and D. [place]: The National Academies Press. 2. Noemy MF, Sonam [place], Jake HERMOSILLO, et al. Evaluation, treatment, and prevention of vitamin D deficiency: an Endocrine Society clinical practice guideline. JCEM. 2010; 96(7):1911-30. Performed By: #### P T, PTT #### [facility] [address] [place], [place] [address] Dr. Mirza Sadler HEMOGRAM AND PLATELon 2021 Hematocrit (Bld) [Volume fraction] 39.9 % Critically low 42.0-54.0 [facility] Comment on above: Performed By: #### P T, PTT #### [facility] [address] [place], [place] [address] Dr. Mirza Sadler Hemoglobin (Bld) [Mass/Vol] 13.1 g/dL Critically low 14.0-18.0 [facility] Comment on above: Performed By: #### P T, PTT #### [facility] [address] [place] [address] Dr. Mirza Sadler MCH (RBC) [Entitic mass] 29.5 pg Normal 25.9-34.0 [facility] Comment on above: Performed By: #### P T, PTT #### [facility] [address] [place] [address] Dr. Mirza Sadler MCHC (RBC) [Mass/Vol] 32.8 g/dL Normal 29.9-35.2 [facility] Comment on above: Performed By: #### P T, PTT #### [facility] [address] [place] [address] Dr. Mirza Sadler MCV (RBC) [Entitic vol] 89.9 fL Normal 80.0-94.0 [facility] Comment on above: Performed By: #### P T, PTT #### [facility] [address] [place] [address] Dr. Mirza Sadler PLT 182 103/ul Normal 150-450 [facility] Comment on above: Performed By: #### P T, PTT #### [facility] [address] [place] [address] Dr. Mirza Sadler RBC 4.44 106/ul Critically low 4.70-6.10 [facility] Comment on above: Performed By: #### P T, PTT #### [facility] [address] [place] [address] Dr. Mirza Sadler WBC 6.9 103/ul Normal 4.0-11.0 [facility] Comment on above: Performed By: #### P T, PTT #### [facility] [address] [place] [address] Dr. Mirza Sadler MAGNESIUMon 11-30-2021 Magnesium [Mass/Vol] 1.8 mg/dL Normal 1.8-2.4 [facility] Comment on above: Performed By: #### P T, PTT #### [facility] [address] [place] [address] Dr. Mirza Sadler RENAL FUNCTION PANELon 11-30 Albumin [Mass/Vol] 3.9 g/dL Normal 3.4-5.0 [facility] Comment on above: Performed By: #### P T, PTT #### [facility] [address] [address] [address] Mirza Sadler Calcium [Mass/Vol] 9.0 mg/dL Normal 8.5-10.1 The [facility] Comment on above: Performed By: #### P T, PTT #### [facility] [address] [address] [address] Mirza Sadler Chloride [Moles/Vol] 107 mmol/L Normal 98-107 [facility] Comment on above: Performed By: #### P T, PTT #### [facility] [address] [place] [address] Dr. Mirza Sadler CO2 [Moles/Vol] 26.2 mmol/L Normal 21.0-32.0 [facility] Comment on above: Performed By: #### P T, PTT #### [facility] [address] [address] [address] Mirza Sadler Creatinine [Mass/Vol] 1.55 mg/dL Critically high 0.70-1.30 [facility] Comment on above: Performed By: #### P T, PTT #### [facility] [address] [place] [address] Dr. Miraz Sadler EGFR-AF ETHIOPIAN 54 mL/min/1.73m2 Critically low >=60 [facility] Comment on above: Performed By: #### P T, PTT #### [facility] [address] [place] [address] Dr. Mirza Sadler EGFR-NON AF ETHIOPIAN 45 mL/min/1.73m2 Critically low >=60 [facility] Comment on above: Performed By: #### P T, PTT #### [facility] [address] [place] [address] Dr. Mirza Sadler Glucose [Mass/Vol] 166 mg/dL Critically high 74-106 [facility] Comment on above: Performed By: #### P T, PTT #### [facility] [address] [place] [address] Dr. Mirza Sadler Phosphate [Mass/Vol] 3.7 mg/dL Normal 2.6-4.7 [facility] Comment on above: Performed By: #### P T, PTT #### [facility] [address] [place] [address] Dr. Mirza Sadler Potassium [Moles/Vol] 4.2 mmol/L Normal 3.5-5.1 [facility] Comment on above: Performed By: #### P T, PTT #### [facility] [address] [place] [address] Dr. Mirza Sadler Sodium [Moles/Vol] 142 mmol/L Normal 136-145 [facility] Comment on above: Performed By: #### P T, PTT #### [facility] [address] [place] [address] Dr. Mirza Sadler Urea nitrogen [Mass/Vol] 16.0 mg/dL Normal 7.0-18.0 [facility] Comment on above: Performed By: #### P T, PTT #### [facility] [address] [place] [address] Dr. Mirza Sadler UA RANDOM W/MICROSCOPICon BACTERIA NONE SEEN Normal NONE SEEN [facility] Comment on above: Performed By: #### B [id number] #### [facility] [address] [place] [address] Dr. Mirza Sadler Bilirubin Ql (U) Negative Normal NEGATIVE [facility] Comment on above: Performed By: #### B LDCX2 #### [facility] [address] [place] [address] Dr. Mirza Sadler CAST NONE SEEN Normal NONE SEEN [facility] Comment on above: Performed By: #### B LDCX2 #### [facility] [address] [place] [address] Dr. Mirza Sadler Clarity (U) CLEAR Normal CLEAR [facility] Comment on above: Performed By: #### B LDCX2 #### [facility] [address] [place] [address] Dr. Mirza Sadler Color (U) LT. YELLOW Normal YELLOW [facility] Comment on above: Performed By: #### B LDCX2 #### [facility] [address] [place] [address] Dr. Mirza Sadler Crystals LM Nom (Urine sed) NONE SEEN Normal NONE SEEN [facility] Comment on above: Performed By: #### B LDCX2 #### [facility] [address] [place] [address] Dr. Mirza Sadler Epithelial cells LM Ql (Urine sed) RARE Normal NONE SEEN /RARE [facility] Comment on above: Performed By: #### B LDCX2 #### [facility] [address] [place] [address] Dr. Mirza Sadler Glucose Ql (U) >1000 Abnormal NEGATIVE [facility] Comment on above: Performed By: #### B LDCX2 #### [facility] [address] [place] [address] Dr. Mirza Sadlre Hemoglobin Ql (U) Negative Normal NEGATIVE [facility] Comment on above: Performed By: #### B LDCX2 #### [facility] [address] [place] [address] Dr. Mirza Sadler Ketones Ql (U) Negative Normal NEGATIVE [facility] Comment on above: Performed By: #### B LDCX2 #### [facility] [address] [place] [address] Dr. Mirza Sadler LEUKOCYTES Negative Normal NEGATIVE [facility] Comment on above: Performed By: #### B LDCX2 #### [facility] [address] [place] [address] Dr. Mirza Sadler MUCOUS NONE SEEN Normal NONE SEEN [facility] Comment on above: Performed By: #### B LDCX2 #### [facility] [address] [place] [address] Dr. Mirza Sadler Nitrite Ql (U) Negative Normal NEGATIVE [facility] Comment on above: Performed By: #### B LDCX2 #### [facility] [address] [place] [address] Dr. Mirza Sadler pH (U) 5.5 [pH] Normal 5-9 [facility] Comment on above: Performed By: #### B LDCX2 #### [facility] [address] [place] [address] Dr. Mirza Sadler RBC NONE SEEN Abnormal 0-2 [facility] Comment on above: Performed By: #### B LDCX2 #### [facility] [address] [place] [address] Dr. Mirza Sadler SPEC GRAVITY 1.015 Normal 1.005-<=1. 025 [facility] Comment on above: Performed By: #### B LDCX2 #### [facility] [address] [place] [address] Dr. Mirza Sadler UA PROTEIN Negative Normal NEGATIVE/ TRACE [facility] Comment on above: Performed By: #### B LDCX2 #### [facility] [address] [place] [address] Dr. Mirza Sadler Urobilinogen Qn (U) 0.2 {Luisito'U}/dL Normal 0.2 - 1. 0 [facility] Comment on above: Performed By: #### B LDCX2 #### [facility] [address] [place] [address] Dr. Mirza Sadler WBC NONE SEEN Normal NONE SEEN [facility] Comment on above: Performed By: #### B LDCX2 #### [facility] [address] [place] [address] Dr. Mirza Sadler URINE T PROTEIN CREAT RATIOo n 11-30-2021 Protein (U) [Mass/Vol] 22.4 mg/dL Critically high <=12.0 [facility] Comment on above: Performed By: #### U RTPCR #### [facility] [address] [place] [address] Dr. Mirza Sadler UR PROT CREAT RAT 0.31 Normal [facility] Comment on above: Performed By: #### U RTPCR #### [facility] [address] [place] [address] Dr. Mirza Sadler URINE CREAT 73.05 mg/dL Normal 20.00-300. 00 [facility] Comment on above: Performed By: #### U RTPCR #### [facility] [address] [address] [address] Mirza Sadler NM HEPATOBILIARY SCAN W EFon 11-24-2021 NM HEPATOBILIARY SCAN W EF EXAMINATION: NM HEPATOBILIARY SCAN W EF HISTORY: Right upper quadrant pain COMPARISON: No relevant comparison available. TECHNIQUE: Radionuclide hepatobiliary imaging was performed after intravenous injection of 5.1 mCi Tc-99m BONITA derivative with sequential acquisitions every 1 minute for one hour. Hepatobiliary imaging with gallbladder ejection fraction analysis was then performed with sequential imaging every 1 minute for 60 minutes following oral ingestion of 8 ounces Ensure Plus. FINDINGS: LIVER: Normal, prompt and uniform radiotracer uptake and clearing. BILIARY DUCTS: Normal radioisotopic biliary excretion. GALLBLADDER: Normal with no evidence of cystic duct obstruction. INTESTINE: Normal with no evidence of common biliary ductal obstruction. EJECTION FRACTION: 38 % within 60 minutes. (Normal EF > 38%). OTHER: Negative. IMPRESSION: 1. Gallbladder ejection fraction is at lower limits of normal, 38%. 2. Normal filling of gallbladder, and patent common bile duct. Electronically authenticated by: HIGINIO FLANAGAN Date: 2021-11-24 11:55 Normal [facility] BNPon 10-27-2021 Natriuretic peptide B (Bld) [Mass/Vol] 574.0 pg/mL Normal <=900.0 [facility] Comment on above: Performed By: #### P T, PTT #### [facility] [address] [address] [address] Mirza Sadler CARDIAC PARUL ADMITon 022 CK [Catalytic activity/Vol] 70 U/L Normal 39-308 [facility] Comment on above: Performed By: #### P T, PTT #### [facility] [address] [address] [address] Mirza Sadler CK.MB [Mass/Vol] 1.10 ng/mL Normal <=3.60 [facility] Comment on above: Performed By: #### P T, PTT #### [facility] [address] [address] [address] Mirza Sdaler HSTROP 22.3 pg/mL Normal 4.0-76.1 [facility] Comment on above: Result Comment: CUT- OFF POINTS HAVE BEEN ESTABLISHED BASED ON THE FOURTH UNIVERSAL DEFINITIONS OF MYOCARDIAL INFARCTION. THE UPPER REFERENCE LIMIT (URL) OF TROPONIN, DEFINED THE 99TH PERCENTILE OF cTnI DISTRIBUTION IN A REFERENCE POPULATION, HAS BEEN CONFIRMED THE DECISION THRESHOLD FOR [place] DIAGNOSIS. Performed By: #### P T, PTT #### [facility] [address] [place] [address] Dr. Mirza Sadler RACHEL 81 ng/mL Normal 16-96 [facility] Comment on above: Performed By: #### P T, PTT #### [facility] [address] [place] [address] Dr. Mirza Sadler CBC AUTO DIFFon 10-27-2021 BASO # 0.1 103/ul Normal 0.0-0.1 [facility] Comment on above: Performed By: #### E RUR #### [facility] [address] [place] [address] Dr. Mirza Sadler Basophils/100 WBC (Bld) 0.4 % Normal 0.2-2.0 [facility] Comment on above: Performed By: #### E RUR #### [facility] [address] [place] [address] Dr. Mirza Sadler EO # 0.1 103/ul Normal 0.0-0.7 [facility] Comment on above: Performed By: #### E RUR #### [facility] [address] [place] [address] Dr. Mirza Sadler Eosinophils/100 WBC (Bld) 0.4 % Critically low 0.9-7.0 [facility] Comment on above: Performed By: #### E RUR #### [facility] [address] [place] [address] Dr. Mirza Sadler Erythrocyte distribution width (RBC) [Ratio] 14.1 % Normal 11.0-15.0 [facility] Comment on above: Performed By: #### E RUR #### [facility] [address] [place] [address] Dr. Mirza Sadler Hematocrit (Bld) [Volume fraction] 41.0 % Critically low 42.0-54.0 [facility] Comment on above: Performed By: #### E RUR #### [facility] [address] [address] [address] Mirza Sadler Hemoglobin (Bld) [Mass/Vol] 14.1 g/dL Normal 14.0-18.0 [facility] Comment on above: Performed By: #### E RUR #### [facility] [address] [address] [address] Mirza Sadler IG # 0.05 10e3/ul Critically high 0.00-0.03 [facility] Comment on above: Performed By: #### E RUR #### [facility] [address] [address] [address] Mirza Sadler IG % 0.4 % Normal 0.0-0.5 [facility] Comment on above: Performed By: #### E RUR #### [facility] [address] [place] [address] Dr. Mirza Sadler LYMPH # 0.9 103/ul Critically low 1.2-3.8 [facility] Comment on above: Performed By: #### E RUR #### [facility] [address] [address] [address] Mirza Sadler Lymphocytes/100 WBC (Bld) 6.6 % Critically low 20.5-60.0 [facility] Comment on above: Performed By: #### E RUR #### [facility] [address] [address] [address] Mirza Sadler MANUAL DIFF REQ NO Normal [facility] Comment on above: Performed By: #### E RUR #### [facility] [address] [address] [address] Mirza Sadler MCH (RBC) [Entitic mass] 29.7 pg Normal 25.9-34.0 [facility] Comment on above: Performed By: #### E RUR #### [facility] [address] [place] [address] Dr. Mirza Sadler MCHC (RBC) [Mass/Vol] 34.4 g/dL Normal 29.9-35.2 [facility] Comment on above: Performed By: #### E RUR #### [facility] [address] [address] [address] Mirza Sadler MCV (RBC) [Entitic vol] 86.3 fL Normal 80.0-94.0 [facility] Comment on above: Performed By: #### E RUR #### [facility] [address] [address] [address] Mirza Sadler MONO # 0.4 103/ul Normal 0.3-0.8 [facility] Comment on above: Performed By: #### E RUR #### [facility] [address] [place] [address] Dr. Mirza Sadler Monocytes/100 WBC (Bld) 2.6 % Normal 1.7-12.0 [facility] Comment on above: Performed By: #### E RUR #### [facility] [address] [place] [address] Dr. Mirza Sadler NEUT # 12.2 103/ul Critically high 1.4-6.5 [facility] Comment on above: Performed By: #### E RUR #### [facility] [address] [place] [address] Dr. Mirza Sadler Neutrophils/100 WBC (Bld) 89.6 % Critically high 43.0-75.0 [facility] Comment on above: Performed By: #### E RUR #### [facility] [address] [place] [address] Dr. Mirza Sadler Platelet mean volume (Bld) [Entitic vol] 9.7 fL Normal 9.5-13.5 [facility] Comment on above: Performed By: #### E RUR #### [facility] [address] [place] [address] Dr. Mirza Sadler PLT 183 103/ul Normal 150-450 [facility] Comment on above: Performed By: #### E RUR #### [facility] [address] [place] [address] Dr. Mirza Sadler RBC 4.75 106/ul Normal 4.70-6.10 [facility] Comment on above: Performed By: #### E RUR #### [facility] [address] [place] [address] Dr. Mirza Sadler WBC 13.7 103/ul Critically high 4.0-11.0 [facility] Comment on above: Performed By: #### E RUR #### [facility] [address] [place] [address] Dr. Mirza Sadler CULTURE BLOODon 10-27-2021 Microscopic examination of blood, culture Culture Observations: NO GROWTH AT 5 DAYS. Normal [facility] Comment on above: Performed By: #### B LDCX2 #### [facility] [address] [place] [address] Dr. Mirza Sadler Performed By: #### H STROPN #### [facility] [address] [place] [address] Dr. Mirza Sadler Covid-19 PCR ([facility])on 09-30 SARS-CoV-2 (COVID-19) RNA RAMO+probe Ql (Unsp spec) Not detected Normal NOT DETECTED [facility] Comment on above: Result Comment: When diagnostic testing is negative, the possibility of a false negative should be considered in the context of a patient's recent exposures and the presence of clinical signs and symptoms consistent with SARS-CoV-2. This test is not yet approved or cleared by the [place] FDA. When there are no FDA-approved or cleared tests available, and other criteria are met, FDA can make tests available under an emergency access mechanism called an Emergency Use Authorization (EUA). The EUA for this test is supported by the [place] of [employer] and Human Service's declaration that circumstances exist to justify the emergency use of in vitro diagnostics for the detection and/or diagnosis of the virus that causes COVID-19. This EUA will remain in effect for the duration of the COVID-19 declaration justifying emergency of IVDs, unless it is terminated or revoked by the FDA (after which the test may no longer be used). Performed By: #### P T, PTT #### [facility] [address] [place] [address] Dr. Mirza Sadler ER URINE PROFILEon Bilirubin Ql (U) Negative Normal NEGATIVE [facility] Comment on above: Performed By: #### H STROPN #### [facility] [address] [address] [address] Mirza Sadler Clarity (U) CLEAR Normal CLEAR [facility] Comment on above: Performed By: #### H STROPN #### [facility] [address] [address] [address] Mirza Sadler Color (U) YELLOW Normal YELLOW [facility] Comment on above: Performed By: #### H STROPN #### [facility] [address] [place] [address] Dr. Mirza Sadler ERUAHD A micrscopic examina tion will be performed if indicated. Normal [facility] Comment on above: Performed By: #### H STROPN #### [facility] [address] [place] [address] Dr. Mirza Sadler Glucose Ql (U) >1000 Abnormal NEGATIVE [facility] Comment on above: Performed By: #### H STROPN #### [facility] [address] [place] [address] Dr. Mirza aSdler Hemoglobin Ql (U) Negative Normal NEGATIVE [facility] Comment on above: Performed By: #### H STROPN #### [facility] [address] [address] [address] Mirza Sadler Ketones Ql (U) TRACE Abnormal NEGATIVE [facility] Comment on above: Performed By: #### H STROPN #### [facility] [address] [place] [address] Dr. Mirza Sadler LEUKOCYTES Negative Normal NEGATIVE [facility] Comment on above: Performed By: #### H STROPN #### [facility] [address] [address] [address] Mirza Sadler Nitrite Ql (U) Negative Normal NEGATIVE [facility] Comment on above: Performed By: #### H STROPN #### [facility] [address] [place] [address] Dr. Mirza Sadler pH (U) 5.5 [pH] Normal 5-9 [facility] Comment on above: Performed By: #### H STROPN #### [facility] [address] [place] [address] Dr. Mirza Sadler SPEC GRAVITY 1.010 Normal 1.005-<=1. 025 [facility] Comment on above: Performed By: #### H STROPN #### [facility] [address] [place] [address] Dr. Mirza Sadler UA PROTEIN Negative Normal NEGATIVE/ TRACE [facility] Comment on above: Performed By: #### H STROPN #### [facility] [address] [place] [address] Dr. Mirza Sadler UR MICRO IND NOT INDICATED Normal [facility] Comment on above: Performed By: #### H STROPN #### [facility] [address] [place] [address] Dr. Mirza Sadler Urobilinogen Qn (U) 0.2 {Luisito'U}/dL Normal 0.2 - 1. 0 [facility] Comment on above: Performed By: #### H STROPN #### [facility] [address] [place] [address] Dr. Mirza Sadler INFLUENZA A [facility] Normal [facility] Comment on above: Result Comment: Nega tive for Flu A protein angiten. Infection due to Flu A cannot be ruled out. Flu A angiten in the sample may be below the detection limit of the test. Performed By: #### B TECHNICAL ACCOUNT MANAGER #### [facility] [address] [place] [address] Dr. Mirza Sadler INFLUBNEGH SEE BELOW Normal [facility] Comment on above: Result Comment: Nega tive for Flu B protein antigen. Infection due to Flu B cannot be ruled out. Flu B antigen in the sample may be below the detection limit of the test. Performed By: #### B TECHNICAL ACCOUNT MANAGER #### [facility] [address] [place] [address] Dr. Mirza Sadler INFLUENZA A AG Negative Normal NEGATIVE SEE COMMENT [facility] Comment on above: Performed By: #### B TECHNICAL ACCOUNT MANAGER #### [facility] [address] [place] [address] Dr. Mirza Sadler INFLUENZA B AG Negative Normal NEGATIVE SEE COMMENT [facility] Comment on above: Performed By: #### B TECHNICAL ACCOUNT MANAGER #### [facility] [address] [place] [address] Dr. Mirza Sadler INTERNAL CONTROLS Within Normal Limits Normal Wi thin Normal Limits [facility] Comment on above: Performed By: #### B TECHNICAL ACCOUNT MANAGER #### [facility] [address] [place] [address] Dr. Mirza Sadler LACTATE/LACTIC ACIDon 2021 Lactate [Moles/Vol] 1.8 mmol/L Normal 0.4-1.[address] [facility] Comment on above: Performed By: #### C MP, CMADM #### [facility] [address] [place] [address] Dr. Mirza Sadler LIPASEon 10-27-2021 Lipase [Catalytic activity/Vol] 87.0 U/L Normal 73.0-393.0 [facility] Comment on above: Performed By: #### P T, PTT #### [facility] [address] [place] [address] Dr. Mirza Sadler PH VENOUS BLOODon 10-27-2021 PCO2 VENOUS 37.6 mmHg Critically low 40.0-52.0 [facility] Comment on above: Performed By: #### P T, PTT #### [facility] [address] [place] [address] Dr. Mirza Sadler pH VENOUS 7.422 Normal 7.330-7.43 0 [facility] Comment on above: Performed By: #### P T, PTT #### [facility] [address] [place] [address] Dr. Mirza Sadler PROF 14(COMP METB)on 022 Albumin [Mass/Vol] 4.2 g/dL Normal 3.4-5.0 The [facility] Comment on above: Performed By: #### P T, PTT #### [facility] [address] [place] [address] Dr. Mirza Sadler Albumin/Globulin [Mass ratio] 1.3 {ratio} Normal [facility] Comment on above: Performed By: #### P T, PTT #### [facility] [address] [address] [address] Mirza Sadler ALP [Catalytic activity/Vol] 121 U/L Critically high 46-116 [facility] Comment on above: Performed By: #### P T, PTT #### [facility] [address] [address] [address] Mirza Sadler ALT [Catalytic activity/Vol] 22 U/L Normal 16-63 [facility] Comment on above: Performed By: #### P T, PTT #### [facility] [address] [address] [address] Mirza Sadler Anion gap [Moles/Vol] 16.0 mmol/L Normal [facility] Comment on above: Performed By: #### P T, PTT #### [facility] [address] [place] [address] Dr. Mirza Sadler AST [Catalytic activity/Vol] 18 U/L Normal 15-37 [facility] Comment on above: Performed By: #### P T, PTT #### [facility] [address] [address] [address] Mirza Sadler Bilirubin [Mass/Vol] 1.3 mg/dL Critically high 0.2-1.0 [facility] Comment on above: Performed By: #### P T, PTT #### [facility] [address] [address] [address] Mirza Sadler Calcium [Mass/Vol] 8.9 mg/dL Normal 8.5-10.1 [facility] Comment on above: Performed By: #### P T, PTT #### [facility] [address] [address] [address] Mirza Sadler Chloride [Moles/Vol] 105 mmol/L Normal 98-107 [facility] Comment on above: Performed By: #### P T, PTT #### [facility] [address] [address] [address] Mirza Sadler CO2 [Moles/Vol] 23.7 mmol/L Normal 21.0-32.0 [facility] Comment on above: Performed By: #### P T, PTT #### [facility] [address] [address] [address] Mirza Sadler Creatinine [Mass/Vol] 1.79 mg/dL Critically high 0.70-1.30 [facility] Comment on above: Performed By: #### P T, PTT #### [facility] [address] [address] [address] Mirza Sadler EGFR-AF ETHIOPIAN 46 mL/min/1.73m2 Critically low >=60 [facility] Comment on above: Performed By: #### P T, PTT #### [facility] [address] [address] [address] Mirza Sadler EGFR-NON AF ETHIOPIAN 38 mL/min/1.73m2 Critically low >=60 [facility] Comment on above: Performed By: #### P T, PTT #### [facility] [address] [place] [address] Dr. Mirza Sadler Globulin (S) [Mass/Vol] 3.3 g/dL Normal [facility] Comment on above: Performed By: #### P T, PTT #### [facility] [address] [address] [address] Mirza Sadler Glucose [Mass/Vol] 195 mg/dL Critically high 74-106 [facility] Comment on above: Performed By: #### P T, PTT #### [facility] [address] [address] [address] Mirza Sadler Potassium [Moles/Vol] 3.7 mmol/L Normal 3.5-5.1 [facility] Comment on above: Performed By: #### P T, PTT #### [facility] [address] [address] [address] Mirza Sadler Protein [Mass/Vol] 7.5 g/dL Normal 6.4-8.2 [facility] Comment on above: Performed By: #### P T, PTT #### [facility] [address] [address] [address] Mirza Sadler Sodium [Moles/Vol] 141 mmol/L Normal 136-145 [facility] Comment on above: Performed By: #### P T, PTT #### [facility] [address] [place] [address] Dr. Mirza Sadler Urea nitrogen [Mass/Vol] 25.0 mg/dL Critically high 7.0-18.0 [facility] Comment on above: Performed By: #### P T, PTT #### [facility] [address] [place] [address] Dr. Mirza Sadler Urea nitrogen/Creatinine [Mass ratio] 14.0 mg/mg Normal [facility] Comment on above: Performed By: #### P T, PTT #### [facility] [address] [place] [address] Dr. Mirza Sadler PROTIMEon 10-27-2021 INR Coag (PPP) [Relative time] 1.07 {INR} Normal [facility] Comment on above: Performed By: #### P T, PTT #### [facility] [address] [place] [address] Dr. Mirza Sadler INR GUIDELINES SEE BELOW Normal [facility] Comment on above: Result Comment: RIVKA RED INR: 2.0 - 3.0 CONDITIONS NOT LISTED BELOW 2.5 - 3.5 FOR PROSTHETIC HEART VALVE REPLACEMENT 2.5 - 3.5 RECURRENT THROMBOSIS Performed By: #### P T, PTT #### [facility] [address] [place] [address] Dr. Mirza Sadler PT Coag (PPP) [Time] 11.5 s Normal 9.0-11.6 [facility] Comment on above: Performed By: #### P T, PTT #### [facility] [address] [place] [address] Dr. Mirza Sadler PTTon 10-27-2021 aPTT Coag (Bld) [Time] 25.1 s Normal 22.3-36.2 [facility] Comment on above: Performed By: #### P T, PTT #### [facility] [address] [place] [address] Dr. Mirza Sadler XR CHEST 1 Von 10-27-2021 XR CHEST 1 V EXAM: Portable chest REASON FOR EXAM: Shortness of breath. TECHNIQUE: A portable frontal view of the chest was obtained. COMPARISON: 07/11/2020. FINDINGS: The lungs are well-inflated and show hazy opacity in the mid to lower right lung. The left lung is clear. The heart and mediastinum are stable in appearance, with stable median sternotomy wires. There is no mass or pathologic adenopathy. Osseous structures are normal. IMPRESSION: Right-sided pneumonia. Electronically authenticated by: GAGAN CAREY Date: 2021-10-27 10:21 Normal [facility] -- LANI LIZAMA ([id number]) 1950 M Date Time Provider Department 10/20/21 ABDON WALKER During your visit today, we recorded the following information about you: Vee Day 10/20/2021 9:43 AM Signed New CBC order. Vee Day Allergies As of Date: 10/20/2021 Noted Allergy Reaction Nkda [Other] 07/28/2018 16 - Unknown Comments: Received name: Dayana Date Reviewed: 10/20/2021 Reviewed by: Vickie Barrera PA-C - Fully Assessed Reason for Visit: Lab Orders [6858] Primary Visit Diagnosis:Monoclonal gammopathy [D47.2] Order(s):CBC + DIFF [SQCBCDIF] Order #: [id number] FUTURE Prescriptions as of 10/24/2021 - famotidine (PEPCID) 40 mg tablet TAKE 1 2 (ONE HALF) TABLET BY MOUTH TWICE DAILY - aspirin, enteric coated (ASPIRIN, ENTERIC COATED) 81 mg EC tablet Aspirin Active 81 MG PO Daily June 22, 2020 4:21am - Cholecalciferol, Vitamin D3, 25 mcg (1,000 unit) cap Take 1,000 Units by mouth. - empagliflozin (JARDIANCE) 25 mg tablet q 24 HR. - amLODIPine (NORVASC) 5 mg tablet Take 5 mg by mouth once daily. - pioglitazone (ACTOS) 15 mg tablet - multivit-minerals/folic acid (ONE-A-DAY MEN VITACRAVES ORAL) Take by mouth. - ergocalciferol, vitamin D2, (VITAMIN D2 ORAL) Take by mouth. - VITAMIN B COMPLEX ORAL Take by mouth every other day. - lovastatin (MEVACOR) 20 mg tablet Take 20 mg by mouth daily at bedtime. - nitroglycerin sublingual (NITROSTAT) 0.4 mg SL tablet Dissolve 0.4 mg under the tongue every 5 minutes as needed. - ALPRAZolam (XANAX) 0.5 mg tablet Take 0.5 mg by mouth at bedtime as needed. - triamcinolone (KENALOG) 0.025 % ointment Apply to affected area twice daily. - insulin NPH human (HUMULIN N NPH INSULIN KWIKPEN) 100 unit/mL (3 mL) inpn injection pen Inject subcutaneously. - lisinopril (ZESTRIL, PRINIVIL) 20 mg tablet Take 20 mg by mouth once daily. - clopidogrel (PLAVIX) 75 mg tablet Take 75 mg by mouth once daily. - loratadine 10 mg cap Take by mouth. - carvedilol (COREG) 25 mg tablet Take 25 mg by mouth twice daily with meals. - isosorbide mononitrate ER (IMDUR) 30 mg 24 hr tablet Take 60 mg by mouth once daily. Problem List As Of Date 10/20/2021 Noted Resolved Monoclonal gammopathy [D47.2] 07/28/2018 Encounter Status:Closed by VEE DAY on 10/24/21 Normal [facility] RAD - CT Reporton 10-06-2021 RAD - CT Report [id number]:127 Normal [facility] CT ABD/PELVIS WO CONon 10-03 CT ABD/PELVIS WO CON EXAMINATION: CT ABD /PELVIS WO CON HISTORY: Abdominal pain ; acute right lower quadrant pain, nausea COMPARISON: No relevant comparison available. TECHNIQUE: Axial, Coronal, and Sagittal images were created without IV contrast. Dose reduction techniques were achieved by using automated exposure control and/or adjustment of mA and/or kV according to patient size and/or use of iterative reconstruction technique. FINDINGS: LUNG BASES: Atherosclerotic coronary artery disease. No visible pulmonary or pleural disease. LIVER: No enlargement, atrophy, suspicious density, or significant focal lesion. BILIARY: A few tiny stones within the noninflamed gallbladder. PANCREAS: No lesion, fluid collection, or abnormal duct dilatation. SPLEEN: No enlargement or focal lesion. ADRENALS: No mass or enlargement. KIDNEYS: No mass, obstruction, or calcification. BOWEL/MESENTERY: Diverticulosis of the descending and sigmoid colon without acute inflammatory changes. No visible mass, obstruction, or bowel wall thickening. Normal appendix. No free air, free fluid, or mesenteric adenopathy.. AORTA/VASCULAR: Marked atherosclerotic disease of aorta and major branches. No aneurysm. RETROPERITONEUM: No mass or adenopathy. LYMPH NODES: No adenopathy. URINARY BLADDER: No visible focal wall thickening, lesion, or calculus. PELVIC ORGANS: No visible mass. Pelvic organs appropriate for patient age. ABDOMINAL WALL: No mass or hernia. BONES: No bony lesion or fracture. L5-S1 marked degenerative disc disease. OTHER: Negative. IMPRESSION: 1. Cholelithiasis. 2. Sigmoid diverticulosis. No acute or suspicious bowel findings or evidence of appendicitis. 3. Marked atherosclerotic disease of the aorta. No aneurysm. Electronically authenticated by: HIGINIO FLANAGAN Date: 2021-10-03 16:29 Normal [facility] Ambulatory Visit Summaryon 0 09-29-2021 Ambulatory Visit Summary LANI LIZAMA :1950 Visit Date:09/29/2021 Ambulatory Visit Instructions Your Diagnosis Abdominal pain, RLQ Nausea Tests Performed CT Abdomen/Pelvis w/o Contrast -- Results Pending -- Please visit your patient portal for your results or contact your primary care physician. Your Care Team Attending Physician - FRANKIE LEMUS, Gagan Sanchez Primary Care Physician - HARLEY CRESPO DO This Is Your Medications List insulin detemir (Levemir) semaglutide (Ozempic) Contact prescribing physician if questions or concerns alprazolam (alprazolam 0.5 mg Tab) amlodipine (amLODIPine 10 mg Tab) aspirin (aspirin 81 mg Oral EC Tab) carvedilol (carvedilol 12.5 mg Tab) clopidogrel (Plavix 75 mg Tab) empagliflozin (Jardiance 10 mg oral tablet) famotidine (famotidine 20 mg Tab) insulin isophane (Humulin N) isosorbide mononitrate (isosorbide mononitrate 60 mg ER Tab) lisinopril (lisinopril 20 mg Tab) lovastatin (lovastatin 40 mg Tab) pantoprazole (Pantoprazole [address] Tab) Procedures Performed Colonoscopy (07/10/2021), EGD - Esophagogastroduodenoscopy (07/10/2021), PCI - Percutaneous coronary intervention (07/13/2020), Cardiac catheterization (2018), PCI - Percutaneous coronary intervention (2017), Aortic stent (2016), PCI - Percutaneous coronary intervention (2015), PTCA - Percutaneous transluminal coronary angioplasty (2012), Cardiac catheterization (2009), PTCA - Percutaneous transluminal coronary angioplasty (2007), Cardiac catheterization (2004), Cardiac catheterization (2002), CABG - Coronary artery bypass graft (1991), PCI - Percutaneous coronary intervention. Discharge Vitals Heart Rate (Peripheral) 60 Respiratory Rate 16 Blood Pressure 138/74 Height 170.1 cm Height 170.1 cm Weight 83.0 kg Weight 83 kg BMI 28.69 Medications What How Much When Instructions Unchanged insulin detemir (Levemir) as directed Unchanged semaglutide (Ozempic) Every week Unchanged alprazolam (alprazolam 0.5 mg Tab) 1 Tablets By Mouth 3 times a day as needed for for anxiety Contact prescribing physician if questions or concerns Unchanged amlodipine (amLODIPine 10 mg Tab) 1 Tablets By Mouth Every day Contact prescribing physician if questions or concerns Unchanged aspirin (aspirin 81 mg Oral EC Tab) 1 Tablets By Mouth Every day Contact prescribing physician if questions or concerns Unchanged carvedilol (carvedilol 12.5 mg Tab) 1 Tablets By Mouth 2 times a day Contact prescribing physician if questions or concerns Unchanged clopidogrel (Plavix 75 mg Tab) 1 Tablets By Mouth Every day Contact prescribing physician if questions or concerns Unchanged empagliflozin (Jardiance 10 mg oral tablet) 1 Tablets By Mouth Once a day (in the morning) Contact prescribing physician if questions or concerns Unchanged famotidine (famotidine 20 mg Tab) 1 Tablets By Mouth 2 times a day Contact prescribing physician if questions or concerns Unchanged insulin isophane (Humulin N) 15 Units Subcutaneous 2 times a day Contact prescribing physician if questions or concerns Unchanged isosorbide mononitrate (isosorbide mononitrate 60 mg ER Tab) 1 Tablets By Mouth Once a day (in the morning) Contact prescribing physician if questions or concerns Unchanged lisinopril (lisinopril 20 mg Tab) 1 Tablets By Mouth Every day Contact prescribing physician if questions or concerns Unchanged lovastatin (lovastatin 40 mg Tab) 1 Tablets By Mouth Once a day (at bedtime) Contact prescribing physician if questions or concerns Unchanged pantoprazole (Pantoprazole [address] Tab) 1 Tablets By Mouth Every day Contact prescribing physician if questions or concerns Allergies No Known Allergies No Known Medication Allergies Problems Ongoing - Any problem that you are currently receiving treatment for. Abdominal pain, RLQ ASHD (arteriosclerotic heart disease) Atheroscler of [place] artery of both legs with intermit claudication BMI 28.0-28.9,adult BPH associated with nocturia Controlled diabetes mellitus with diabetic polyneuropathy, with long-term current use of insulin Diabetic retinopathy Elevated serum immunoglobulin free light chains GERD (gastroesophageal reflux disease) IBS (irritable bowel syndrome) Lumbar spondylosis MGUS (monoclonal gammopathy of unknown significance) Mixed hyperlipidemia Nausea Obesity Stage 3 chronic kidney disease Stenosis of infrarenal abdominal aorta due to atherosclerosis Normal [facility] Outside Colonoscopyon 2021 Outside Colonoscopy [id number]:127 Normal [facility] Physician Referralon 022 Physician Referral [id number]:127 Normal [facility] PROF 14(COMP METB)on 022 Albumin [Mass/Vol] 4.1 g/dL Normal 3.4-5.0 [facility] Comment on above: Performed By: #### P T, PTT #### [facility] [address] [address] [address] Mirza Sadler Albumin/Globulin [Mass ratio] 1.2 {ratio} Normal [facility] Comment on above: Performed By: #### P T, PTT #### [facility] [address] [address] [address] Mirza Sadler ALP [Catalytic activity/Vol] 132 U/L Critically high 46-116 [facility] Comment on above: Performed By: #### P T, PTT #### [facility] [address] [address] [address] Mirza Sadler ALT [Catalytic activity/Vol] 30 U/L Normal 16-63 [facility] Comment on above: Performed By: #### P T, PTT #### [facility] [address] [address] [address] Mirza Sadler Anion gap [Moles/Vol] 10.7 mmol/L Normal [facility] Comment on above: Performed By: #### P T, PTT #### [facility] [address] [address] [address] Mirza Sadler AST [Catalytic activity/Vol] 21 U/L Normal 15-37 [facility] Comment on above: Performed By: #### P T, PTT #### [facility] [address] [place] [address] Dr. Mirza Sadler Bilirubin [Mass/Vol] 0.7 mg/dL Normal 0.2-1.0 [facility] Comment on above: Performed By: #### P T, PTT #### [facility] [address] [place] [address] Dr. Mirza Sadler Calcium [Mass/Vol] 9.0 mg/dL Normal 8.5-10.1 [facility] Comment on above: Performed By: #### P T, PTT #### [facility] [address] [place] [address] Dr. Mirza Sadler Chloride [Moles/Vol] 106 mmol/L Normal 98-107 [facility] Comment on above: Performed By: #### P T, PTT #### [facility] [address] [place] [address] Dr. Mirza Sadler CO2 [Moles/Vol] 27.5 mmol/L Normal 21.0-32.0 [facility] Comment on above: Performed By: #### P T, PTT #### [facility] [address] [place] [address] Dr. Mirza Sadler Creatinine [Mass/Vol] 1.77 mg/dL Critically high 0.70-1.30 [facility] Comment on above: Performed By: #### P T, PTT #### [facility] [address] [address] [address] Mirza Sadler EGFR-AF ETHIOPIAN 46 mL/min/1.73m2 Critically low >=60 [facility] Comment on above: Performed By: #### P T, PTT #### [facility] [address] [address] [address] Mirza Sadler EGFR-NON AF ETHIOPIAN 38 mL/min/1.73m2 Critically low >=60 [facility] Comment on above: Performed By: #### P T, PTT #### [facility] [address] [address] [address] Mirza Sadler Globulin (S) [Mass/Vol] 3.5 g/dL Normal [facility] Comment on above: Performed By: #### P T, PTT #### [facility] [address] [address] [address] Mirza Sadler Glucose [Mass/Vol] 135 mg/dL Critically high 74-106 [facility] Comment on above: Performed By: #### P T, PTT #### [facility] [address] [address] [address] Mirza Sadler Potassium [Moles/Vol] 4.2 mmol/L Normal 3.5-5.1 [facility] Comment on above: Performed By: #### P T, PTT #### [facility] [address] [address] [address] Mirza Sadler Protein [Mass/Vol] 7.6 g/dL Normal 6.4-8.2 [facility] Comment on above: Performed By: #### P T, PTT #### [facility] [address] [address] [address] Mirza Sadler Sodium [Moles/Vol] 140 mmol/L Normal 136-145 [facility] Comment on above: Performed By: #### P T, PTT #### [facility] [address] [address] [address] Mirza Sadler Urea nitrogen [Mass/Vol] 17.0 mg/dL Normal 7.0-18.0 [facility] Comment on above: Performed By: #### P T, PTT #### [facility] [address] [place], [place] [address] Dr. Mirza Sadler Urea nitrogen/Creatinine [Mass ratio] 9.6 mg/mg Normal [facility] Comment on above: Performed By: #### P T, PTT #### [facility] [address] [place], [place] [address] Dr. Mirza Sadler US SINGLE QUAD RT UPPERon US SINGLE QUAD RT UPPER EXAMINATION: US SINGLE QUAD RT UPPER HISTORY: Right upper quadrant pain for a couple weeks COMPARISON: No relevant comparison available. TECHNIQUE: Transabdominal evaluation of the right upper quadrant. FINDINGS: LIVER: Normal size and echotexture. Color Doppler demonstrates patent hepatic veins. PORTAL VEIN: Duplex Doppler demonstrates normal hepatopetal flow pattern with flow velocity averaging 30 cm/s. GALLBLADDER: Contains several mobile 5 mm stones. No wall thickening or pericholecystic free fluid. Negative sonographic Lopez's sign. BILIARY: No abnormal dilation or stones. Common bile duct diameter is within normal limits. PANCREASE: No visible mass, abnormal atrophy, or duct dilation. KIDNEY: No hydronephrosis. No visible mass or stones. Size: 10.4 x 5.0 x 5.3 cm IMPRESSION: 1. Cholelithiasis without evidence of acute cholecystitis. Electronically authenticated by: HIGINIO FLANAGAN Date: 2021-08-27 08:40 Normal [facility] A1C HEMOGLOBINon 07-17-2021 HbA1c (Bld) [Mass fraction] 6.9 % [employer] Other Glucose - FINGER STICKon Glucose [Mass/Vol] 180 mg/dL [employer] Other HbA1c (Bld) [Mass fraction]o n 07-17-2021 A1C HEMOGLOBIN [employer] Other A1C with Estimated Average G luon 04-10-2021 HbA1c (Bld) [Mass fraction] 6.4 % [employer] Other HbA1c (Bld) [Mass fraction] 243 % [employer] Other Glucoseon 04-10-2021 Glucose [Mass/Vol] 243 mg/dL [employer] Other A1C HEMOGLOBINon 01-03-2021 HbA1c (Bld) [Mass fraction] 6.6 % [employer] Other Glucose - FINGER STICKon Glucose [Mass/Vol] 142 mg/dL [facility] [employer] Other HbA1c (Bld) [Mass fraction]o n 01-03-2021 A1C HEMOGLOBIN [facility] [employer] Other CNPNon 10-27-2020 CNPN Telephone ([place]) -- LANI LIZAMA ([id number]) 1950 M Date Time Provider Department 10/27/20 ANGELINE WARE During your visit today, we recorded the following information about you: Angeline Ware RN 10/27/2020 9:13 AM Signed ----- Message from Elinor Posada RN sent at 10/26/2020 3:59 PM EDT ----- ----- Message ----- From: Abdon Walker MD Sent: 10/25/2020 7:44 PM EDT To: Elinor Posada RN Please call with stable lab results and follow up in 1 year Angeline Ware RN 10/27/2020 9:13 AM Signed Called pt, no answer, not able to leave message, will continue to attempt to reach pt. ALBINO Munoz RN 10/28/2020 11:09 AM Signed Call placed to pt. No answer. Left message informing him of stable labs and to return call if any questions/concerns. Angeline Ware RN Allergies As of Date: 10/27/2020 Noted Allergy Reaction Nkda [Other] 07/28/2018 16 - Unknown Comments: Received name: Dayana Date Reviewed: 10/25/2020 Reviewed by: Abdon Walker MD - Fully Assessed Reason for Visit: Results [95] Prescriptions as of 10/28/2020 - famotidine (PEPCID) 40 mg tablet TAKE 1 2 (ONE HALF) TABLET BY MOUTH TWICE DAILY - aspirin, enteric coated (ASPIRIN, ENTERIC COATED) 81 mg EC tablet Aspirin Active 81 MG PO Daily June 22, 2020 4:21am - Cholecalciferol, Vitamin D3, 25 mcg (1,000 unit) cap Take 1,000 Units by mouth. - empagliflozin (JARDIANCE) 25 mg tablet q 24 HR. - amLODIPine (NORVASC) 5 mg tablet Take 5 mg by mouth once daily. - pioglitazone (ACTOS) 15 mg tablet - multivit-minerals/folic acid (ONE-A-DAY MEN VITACRAVES ORAL) Take by mouth. - ergocalciferol, vitamin D2, (VITAMIN D2 ORAL) Take by mouth. - VITAMIN B COMPLEX ORAL Take by mouth every other day. - lovastatin (MEVACOR) 20 mg tablet Take 20 mg by mouth daily at bedtime. - nitroglycerin sublingual (NITROSTAT) 0.4 mg SL tablet Dissolve 0.4 mg under the tongue every 5 minutes as needed. - ALPRAZolam (XANAX) 0.5 mg tablet Take 0.5 mg by mouth at bedtime as needed. - triamcinolone (KENALOG) 0.025 % ointment Apply to affected area twice daily. - insulin NPH human (HUMULIN N NPH INSULIN KWIKPEN) 100 unit/mL (3 mL) inpn injection pen Inject subcutaneously. - lisinopril (ZESTRIL, PRINIVIL) 20 mg tablet Take 20 mg by mouth once daily. - clopidogrel (PLAVIX) 75 mg tablet Take 75 mg by mouth once daily. - loratadine 10 mg cap Take by mouth. - carvedilol (COREG) 25 mg tablet Take 25 mg by mouth twice daily with meals. - isosorbide mononitrate ER (IMDUR) 30 mg 24 hr tablet Take 60 mg by mouth once daily. Problem List As Of Date 10/27/2020 Noted Resolved Monoclonal gammopathy [D47.2] 07/28/2018 Encounter Status:Closed by ANGELINE WARE on 10/28/20 Normal [facility] Cardiovascular Lab Reporton 10-16-2018 Cardiovascular Lab Report [facility] Patient Name: Lani Lizama [facility] MR #: [id number] Physician: Pinky Bishop, Department of M.D. Medicine Service Date: 10/15/2018 Division of Birthdate: 1950 Cardiology Room #: [id number] Adult Cardiovascular Services [facility] [address] [facility]. [place] [address] Cardiovascular Laboratory Report FINAL IMPRESSIONS: 1. Severe three-vessel [place] ir[place] coronary artery disease. 2. [id number] bypass grafts patent. 3. 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 4. Moderate systemic hypertension. RECOMMENDATIONS/PLAN: 1. Aggressive cardiovascular risk factor modification. 2. Optimization of medical management; continue aspirin, Plavix, high-intensity statin therapy, a beta jason, +/- an angiotensin-converting enzyme inhibitor. 3. Will increase his Imdur to 60 mg a day and add Norvasc 5 mg daily for symptomatic relief. 4. Follow up with me in the [facility] in the next 4-6 weeks. 5. Follow up with Dr. Crespo as scheduled. PROCEDURES: Limited coronary angiography, saphenous vein graft angiography, angiography of the internal mammary artery graft via a left radial approach. METHODS: After risks, benefits, and alternatives were explained, written informed consent was obtained. The patient was prepped and draped in usual sterile fashion over the left wrist and left groin. Using 1% lidocaine solution, local infiltration anesthesia was achieved. Using a modified Seldinger technique, access to the left radial artery was obtained under ultrasound guidance and using a micropuncture kit. A 6-Canadian Glidesheath was inserted without difficulty. Coronary angiography was performed using a JR4 catheter. This was used to cannulate and image the saphenous vein graft. It was also used to cannulate the left internal mammary artery graft. Angiography of the left coronary system was not performed given the known anatomy and desire to reduce contrast exposure. After reviewing the images and data, it was elected to conclude the procedure. All catheters were removed. The radial sheath was removed with application of a TR band per protocol to achieve optimal hemostasis. Overall, the patient tolerated the procedure well. There were no overt complications. He was to be transferred to the holding area in stable condition. FINDINGS: Hemodynamics: AO 140/73. LEFT VENTRICULOGRAPHY: This was not performed. CORONARY ARTERIES: Left main coronary artery. This was not imaged during this procedure. It is known to have severe disease from a prior angiogram. Left anterior descending coronary artery. This is known to be proximally occluded. Left circumflex coronary artery. This is known to be severely diseased with subtotal occlusion on prior angiography. Right coronary artery. This is a dominant vessel. It is occluded in the midportion of the vessel. There is evidence of kqyo-ic-lezov collaterals. The distal vessel is supplied via a patent saphenous vein graft to the posterior descending artery. GRAFT ANGIOGRAPHY: Left internal mammary artery graft to the left anterior descending. This is widely patent. The vessel distal to the touchdown shows diffuse caliber reduction with no focal stenosis. Saphenous vein graft sequential to diagonal 1 and diagonal 2. This is widely patent. Saphenous vein graft to the obtuse marginal branch. This shows a long segment 40%-50% stenosis proximally that is unchanged. There is a long stented segment in the jdnmhdio-rj-tlgqzx portion of the vessel with 30% in-stent restenosis. The vessel distal to the touchdown shows caliber reduction and no discrete stenosis. There is diffuse disease in the branches. Saphenous vein graft to the posterior descending artery. This is widely patent. It shows an extensive stented segment from ahsyptwm-ne-yokfwdtgrg of the vessel. There is a 40%-50% in-stent restenosis in the midportion. The distal vasculature shows diffuse caliber reduction and no discrete stenosis. INDICATIONS: The patient is a 67-year-old gentleman with coronary and peripheral arterial disease, who presented with chest pain and shortness of breath on exertion. A stress test suggested lateral ischemia. Findings and management strategies are outlined above. Electronically Signed by: Pinky Bishop M.D. 10/20/2018 12:45 P Pinky Bishop M.D. Date Dict: 10/15/2018/11:10 Nakul/Pinky Bishop M.D. Date Trans: 10/16/2018 05:01 Nakul/gatito [id number] cc: Harley Crespo D.O. [address] [place] [address] [place] [id number] Normal [facility] BASIC METABOLIC PANELon 09-29 Calcium [Mass/Vol] 8.9 mg/dL Normal 8.6-10.3 [facility] Comment on above: Order Comment: No: D o not add to previous draw Performed By: #### 1 69, [id number] #### [facility] [address] [place] [address], [place] Chloride [Moles/Vol] 110 mmol/L High 98-107 [facility] Comment on above: Order Comment: No: D o not add to previous draw Performed By: #### 1 69, 43412 #### [facility] [address] [place] [address], [place] CO2 [Moles/Vol] 26 mmol/L Normal 21-31 [facility] Comment on above: Order Comment: No: D o not add to previous draw Performed By: #### 1 69, 93205 #### [facility] [address] [place] [address], [place] Creatinine [Mass/Vol] 1.52 mg/dL High 0.70-1.30 [facility] Comment on above: Order Comment: No: D o not add to previous draw Performed By: #### 1 69, 47854 #### [facility] [address] [place] [address], [place] GFR/1.73 sq M predicted among blacks MDRD (S/P/Bld) [Vol rate/Area] 56 ml/min/1.73sq m Abnormal >60 [facility] Comment on above: Order Comment: No: D o not add to previous draw Performed By: #### 1 69, 00237 #### [facility] [address] [place] [address], [facility] GFR/1.73 sq M predicted among non-blacks MDRD (S/P/Bld) [Vol rate/Area] 46 ml/min/1.73sq m Abnormal >60 [facility] Comment on above: Order Comment: No: D o not add to previous draw Performed By: #### 1 69, 43208 #### [facility] [address] [place] [address], [facility] Glucose [Mass/Vol] 89 mg/dL Normal 70-100 [facility] Comment on above: Order Comment: No: D o not add to previous draw Performed By: #### 1 69, 08166 #### [facility] [address] [place] [address], [facility] Potassium [Moles/Vol] 3.9 mmol/L Normal 3.5-5.1 [facility] Comment on above: Order Comment: No: D o not add to previous draw Performed By: #### 1 69, 52715 #### [facility] [address] [place] [address], [facility] Sodium [Moles/Vol] 141 mmol/L Normal 136-145 [facility] Comment on above: Order Comment: No: D o not add to previous draw Performed By: #### 1 69, 25317 #### [facility] [address] [place] [address], [facility] Urea nitrogen [Mass/Vol] 19 mg/dL Normal 7-25 [facility] Comment on above: Order Comment: No: D o not add to previous draw Performed By: #### 1 69, 27443 #### [facility] [address] [place] [address], [facility] CBC W/DIFFon 10-15-2018 ABS BASOPHILS 0.1 10*3/uL Normal 0.0-0.2 [facility] Comment on above: Order Comment: No: D o not add to previous draw Performed By: #### 5 0103 #### [facility] [address] [place] [address], [facility] ABS IMM GRANS 0.0 10*3/uL Normal 0.0-0.2 [facility] Comment on above: Order Comment: No: D o not add to previous draw Performed By: #### 5 0103 #### [facility] [address] [place] [address], [facility] ABS NEUTROPHILS 3.5 10*3/uL Normal 1.6-7.6 [facility] Comment on above: Order Comment: No: D o not add to previous draw Performed By: #### 5 0103 #### [facility] [address] [place] [address], [facility] Basophils/100 WBC (Bld) 0.8 % Normal 0.0-1.0 [facility] Comment on above: Order Comment: No: D o not add to previous draw Performed By: #### 5 0103 #### [facility] [address] [facility] [place] [address], [facility] Eosinophils (Bld) [#/Vol] 0.3 10*3/uL Normal 0.0-0.5 [facility] Comment on above: Order Comment: No: D o not add to previous draw Performed By: #### 5 0103 #### [facility] [address] [place] [address], [facility] Eosinophils/100 WBC (Bld) 3.9 % Normal 0.0-6.0 [facility] Comment on above: Order Comment: No: D o not add to previous draw Performed By: #### 5 0103 #### [facility] [address] [place] [address], [facility] Erythrocyte distribution width (RBC) [Ratio] 13.5 % Normal 11.5-15.0 [facility] Comment on above: Order Comment: No: D o not add to previous draw Performed By: #### 5 0103 #### [facility] [address] [place] [address], [facility] Hematocrit (Bld) [Volume fraction] 39.7 % Normal 39.0-50.0 [facility] Comment on above: Order Comment: No: D o not add to previous draw Performed By: #### 5 3 #### [facility] [address] [place] [id number], [facility] Hemoglobin (Bld) [Mass/Vol] 13.0 g/dL Normal 13.0-17.0 [facility] Comment on above: Order Comment: No: D o not add to previous draw Performed By: #### 5 3 #### [facility] [address] [place] [address], [facility] IMMATURE GRANS 0.3 % Normal 0.0-1.0 [facility] Comment on above: Order Comment: No: D o not add to previous draw Performed By: #### 5 3 #### [facility] [address] [facility] [place] [address], [facility] Lymphocytes (Bld) [#/Vol] 1.9 10*3/uL Normal 1.2-4.0 [facility] Comment on above: Order Comment: No: D o not add to previous draw Performed By: #### 5 3 #### [facility] [address] [facility] [place] [address], [facility] Lymphocytes/100 WBC (Bld) 30.1 % Normal 20.0-45.0 [facility] Comment on above: Order Comment: No: D o not add to previous draw Performed By: #### 5 3 #### [facility] [address] [facility] [place] [address], [facility] MCH (RBC) [Entitic mass] 30.0 pg Normal 27.0-33.0 [facility] Comment on above: Order Comment: No: D o not add to previous draw Performed By: #### 5 3 #### [facility] [address] [place] [address], [facility] MCHC (RBC) [Mass/Vol] 32.7 g/dL Normal 32.0-35.0 [facility] Comment on above: Order Comment: No: D o not add to previous draw Performed By: #### 5 0103 #### [facility] [address] [place] [id number], [facility] MCV (RBC) [Entitic vol] 91.5 fL Normal 82.0-98.0 [facility] Comment on above: Order Comment: No: D o not add to previous draw Performed By: #### 5 0103 #### [facility] [address] [place] [address], [facility] Monocytes (Bld) [#/Vol] 0.7 10*3/uL Normal 0.1-1.0 [facility] Comment on above: Order Comment: No: D o not add to previous draw Performed By: #### 5 0103 #### [facility] [address] [place] [id number], [facility] MONOS 10.7 % Normal 5.0-12.0 [facility] Comment on above: Order Comment: No: D o not add to previous draw Performed By: #### 5 3 #### [facility] [address] [facility] [place] [address], [facility] Neutrophils/100 WBC (Bld) 54.2 % Normal 40.0-72.0 [facility] Comment on above: Order Comment: No: D o not add to previous draw Performed By: #### 5 0103 #### [facility] [address] [place] [address], [facility] Nucleated RBC/100 WBC (Bld) [Ratio] 0 % Normal 0-0 [facility] Comment on above: Order Comment: No: D o not add to previous draw Performed By: #### 5 3 #### [facility] [address] PLAT CNT 164 10*3/uL Normal 150-400 [facility] Comment on above: Order Comment: No: D o not add to previous draw Performed By: #### 5 0103 #### [facility] [address] RBC (Bld) [#/Vol] 4.34 10*6/uL Normal 4.20-5.70 [facility] Comment on above: Order Comment: No: D o not add to previous draw Performed By: #### 5 0103 #### [facility] [address] WBC (Bld) [#/Vol] 6.38 10*3/uL Normal 4.00-10.60 [facility] Comment on above: Order Comment: No: D o not add to previous draw Performed By: #### 5 0103 #### [facility] [address] MAGNESIUM BLOODon 10-15-2018 Magnesium [Mass/Vol] 2.0 mg/dL Normal 1.9-2.7 [facility] Comment on above: Order Comment: No: D o not add to previous draw Performed By: #### 1 0070, 23959 #### [facility] [address] PROTHROMBIN TIMEon 9 INR Coag (PPP) [Relative time] 1.11 {INR} Normal 0.91-1.16 [facility] Comment on above: Order Comment: No: D o not add to previous draw Result Comment: ACCC P RECOMMENDED INR FOR WARFARIN THERAPY -------- ------- CONDITION INR PROPHYLAXIS OF VENOUS THROMBOSIS 2-3 (HIGH-RISK SURGERY) TREATMENT OF VENOUS THROMBOSIS 2-3 TREATMENT OF PULMONARY EMBOLISM 2-3 PREVENTION OF SYSTEMIC EMBOLISM: 2-3 ACUTE MYOCARDIAL INFARCTION TISSUE HEART VALVES VALVULAR HEART DISEASE ATRIAL FIBRILLATION RECURRENT SYSTEMIC EMBOLISM MECHANICAL HEART VALVE 2.5-3.5 FROM: ORAL ANTICOAGULANTS. MECHANISM OF ACTION, CLINICAL EFFECTIVENESS, AND OPTIMAL THERAPEUTIC RANGE. CHEST 1995;108:231S-246S. Performed By: #### 5 6101 #### [address] PT Coag (PPP) [Time] 14.3 s Normal 12.3-14.8 [facility] Comment on above: Order Comment: No: D o not add to previous draw Result Comment: ALL RESULTS MUST BE INTERPRETED WITH RESPECT TO BLOOD DRAWING ARTIFACT OR DILUTION ERROR OF ANTICOAGULANT AT THE TIME OF SAMPLING. Performed By: #### 5 6101 #### [address] POC GLUCOSE LABon 10-14-2018 Glucose [Mass/Vol] 180 mg/dL High 70-100 [facility] Comment on above: Performed By: #### 8 5499 #### [address] Cardiovascular Lab Reporton 02-25-2018 Cardiovascular Lab Report [facility] Patient Name: Lani Lizama [facility] MR #: [id number] Physician: Pinky Bishop, Department of M.D. Medicine Service Date: 02/24/2018 Division of Birthdate: 1950 Cardiology Room #: 3AB [id number] Adult Cardiovascular Services [place] [address] Cardiovascular Laboratory Report FINAL IMPRESSIONS: 1. 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 2. Severe 3-vessel shishmaref ira coronary artery disease. 3. 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 4. Wlnhdurh-iq-yavczi systemic hypertension. RECOMMENDATIONS: 1. Aspirin 81 mg lifelong. 2. 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 3. Aggressive cardiovascular risk factor modification. 4. Optimization of medical management; high intensity statin therapy as tolerated, we will switch his Toprol-XL to Coreg 25 mg p.o. b.i.d., and angiotensin-converting enzyme inhibitor. 5. Follow up with me in the [facility] in the next 2-3 weeks. 6. Follow up with Dr. Crespo as scheduled. PROCEDURES: Limited femoral angiography, bilateral selective coronary angiography, saphenous vein graft angiography, angiography of the left internal mammary artery graft, limited angiography of the left subclavian, percutaneous balloon angioplasty, and Synergy drug-eluting stent placement to the saphenous vein graft to the obtuse marginal, placement of a 6-Canadian MYNXGRIP closure device. METHODS: After risks, benefits, and alternatives were explained, written informed consent was obtained. The patient was prepped and draped in usual sterile fashion over both groins. Using 1% lidocaine solution, local infiltration anesthesia was achieved over the right groin. Using a micropuncture kit, access of the right common femoral artery was obtained. A 6-Canadian 11 cm sheath was exchanged then without difficulty. Baseline femoral arterial angiography was performed. Bilateral selective coronary angiography was performed using JL4 and JR4 catheters. Angiography of the saphenous vein graft was performed using the JR4 and AR2 catheters. The JR4 was used to cannulate the left subclavian. It was exchanged out for an IM catheter. Angiography of internal mammary artery graft was performed. Limited angiography of the left subclavian was performed after retracting the IM catheter into the subclavian artery. After reviewing the images, it was elected to proceed with an interventional procedure. A 6-Canadian JR4 guide catheter was advanced in and coaxially engaged into the ostium of the saphenous vein graft to the obtuse marginal. A 0.014 run-through NS wire was advanced through the catheter across the target stenosis and positioned distally. Balloon angioplasty was performed using a 3.75 x 15 mm noncompliant balloon. An inadequate result was treated using a 4.0 x 24 mm Synergy drug-eluting stent. Repeat imaging showed an optimal result. Final images in orthogonal views showed LISANDRA-3 flow with haziness at the distal end of the stent, but no obvious dissection, thrombus or distal wire trauma. At this point, it was elected to conclude the procedure. All catheters were removed. A 6-Canadian MYNXGRIP closure device was deployed per protocol achieving optimal hemostasis. Overall, the patient tolerated the procedure well. There were no overt complications. He was to be transferred to the holding area in stable condition. FINDINGS: Hemodynamics: AO 176/93. LEFT VENTRICULOGRAPHY: This was not performed. CORONARY ARTERIES: Left main coronary artery: This arises from the left coronary cusp. It bifurcates into the left anterior descending and left circumflex coronary arteries. It shows diffuse caliber reduction and an estimated 40% to 50% stenosis. Left anterior descending coronary artery: This is stump occluded in the proximal portion of the vessel. Distal filling is seen via a patent left internal mammary artery graft. The distal vessel shows diffuse plaque. Left circumflex coronary artery: This shows diffuse caliber reduction and sequential 70% stenosis proximally. The obtuse marginal branch is stump occluded. Distal filling is seen via saphenous vein graft to the obtuse marginal branch. Right coronary artery: This is dominant vessel giving rise to the posterior descending and posterolateral branches. It shows a 70% to 80% proximal stenosis and is subsequently occluded in the midportion. There is faint antegrade filling. Distal filling is seen via a patent saphenous vein graft to the posterior descending artery. GRAFT ANGIOGRAPHY: Left internal mammary artery graft to the left anterior descending: this is widely patent. Saphenous vein graft to the obtuse marginal: baseline imaging shows an 80% in-stent restenosis in the midportion of the vessel. This was reduced to 0% by balloon angioplasty and placement of a 4.0 x 24 mm Synergy drug-eluting stent. Final images showed LISANDRA-3 flow with no dissection, thrombus, or distal wire trauma. Saphenous vein graft sequential to the diagonal-1 and diagonal-2: this is widely patent. Saphenous vein graft to the posterior descending artery: this is patent with evidence of previously placed stents along the length of the proximal and midportion. There is a 50% in-stent restenosis in the midportion of the vessel that was left untreated. The distal circulation shows a patent posterior descending artery with evidence of a patent stent in the proximal portion. The posterolateral branch is stump occluded. There is a 30% touchdown stenosis of the shishmaref ira vessel. 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 Limited femoral angiography, this shows mild plaque and anatomy suitable for closure device. INDICATIONS: Unstable angina. Electronically Signed by: Pinky Bishop M.D. 03/06/2018 12:15 P Pinky Bishop M.D. Date Dict: 02/24/2018/01:39 May/Pinky Bishop M.D. Date Trans: 02/25/2018 02:12 A/gatito [id number] cc: Harley Crespo D.O. [address] [place] [id number] Normal [facility] POC GLUCOSE LABon 02-25-2018 Glucose [Mass/Vol] 150 mg/dL High 70-100 [facility] Comment on above: Performed By: #### 8 5499 #### [facility] [address] [place] [address], [facility] POC GLUCOSE LABon 02-24-2018 Glucose [Mass/Vol] 192 mg/dL High 70-100 [facility] Comment on above: Performed By: #### 8 5499 #### [facility] [address] [place] [address], [place] Glucose [Mass/Vol] 186 mg/dL High 70-100 [facility] Comment on above: Performed By: #### 8 [id number] #### [facility] [address] [place] [address], [place] Vital Signs Date Time Vital Sign Value Performing Clinician Facility 03-12-2023 11:15-0500 Body height 170.18 cm Tondra Varghese Other [facility] Other 03-12-2023 11:15-0500 Body mass index (BMI) [Ratio] 27.03 kg/m2 Tondra Mapus Other [facility] Other 03-12-2023 11:15-0500 Body weight 78.29 kg Tondra Mapus Other [facility] Other 03-12-2023 11:15-0500 Diastolic blood pressure 79 mm[Hg] Tondra Mapus Other [facility] Other 03-12-2023 11:15-0500 Respiratory rate 18 /min Tondra Mapus Other [facility] Other 03-12-2023 11:15-0500 SaO2% (BldA) [Mass fraction] 98 % Tondra Mapus Other [facility] Other 03-12-2023 11:15-0500 Systolic blood pressure 128 mm[Hg] Tondra Mapus Other [facility] Other 01-07-2023 10:00-0400 Body height 170.18 cm Kingsley Latisha Other [facility] Other 01-07-2023 10:00-0400 Body mass index (BMI) [Ratio] 27 kg/m2 Kingsley Latisha Other [facility] Other 01-07-2023 10:00-0400 Body temperature 97.7 [degF] Kingsley Latisha Other [facility] Other 01-07-2023 10:00-0400 Body weight 78.2 kg Knigsley Latisha Other [facility] Other 01-07-2023 10:00-0400 Diastolic blood pressure 73 mm[Hg] Kingsley Latisha Other [facility] Other 01-07-2023 10:00-0400 Respiratory rate 16 /min Kingsley Latisha Other [facility] Other 01-07-2023 10:00-0400 SaO2% (BldA) [Mass fraction] 98 % Kingsley Latisha Other [facility] Other 01-07-2023 10:00-0400 Systolic blood pressure 108 mm[Hg] Kingsley Latisha Other [facility] Other 12-31-2022 09:30-0400 Body height 170.18 cm Harley Ball Other [facility] Other 12-31-2022 09:30-0400 Body mass index (BMI) [Ratio] 27.03 kg/m2 Harley Ball Other [facility] Other 12-31-2022 09:30-0400 Body weight 78.29 kg Harley Ball Other [facility] Other 12-31-2022 09:30-0400 Diastolic blood pressure 69 mm[Hg] Harley Ball Other [facility] Other 12-31-2022 09:30-0400 Respiratory rate 16 /min Harley Ball Other [facility] Other 12-31-2022 09:30-0400 Systolic blood pressure 102 mm[Hg] Harley Ball Other [facility] Other 08-31-2022 08:45-0400 Body height 170.18 cm Harley Ball Other [facility] Other 08-31-2022 08:45-0400 Body mass index (BMI) [Ratio] 26.72 kg/m2 Harley Ball Other [facility] Other 08-31-2022 08:45-0400 Body weight 77.38 kg Harley Ball Other [facility] Other 08-31-2022 08:45-0400 Diastolic blood pressure 69 mm[Hg] Harley Ball Other [facility] Other 08-31-2022 08:45-0400 Respiratory rate 12 /min Harley Ball Other [facility] Other 08-31-2022 08:45-0400 Systolic blood pressure 102 mm[Hg] Harley Ball Other [facility] Other 07-02-2022 10:40-0400 Body height 170.18 cm Kingsley Latisha Other [facility] Other 07-02-2022 10:40-0400 Body mass index (BMI) [Ratio] 27.69 kg/m2 Kingsley Latisha Other [facility] Other 07-02-2022 10:40-0400 Body temperature 96.4 [degF] Kingsley Latisha Other [facility] Other 07-02-2022 10:40-0400 Body weight 80.2 kg Kingsley Latisha Other [facility] Other 07-02-2022 10:40-0400 Diastolic blood pressure 71 mm[Hg] Kingsley Latisha Other [facility] Other 07-02-2022 10:40-0400 Respiratory rate 16 /min Kingsley Latisha Other [facility] Other 07-02-2022 10:40-0400 SaO2% (BldA) [Mass fraction] 97 % Kingsley Latisha Other [facility] Other 07-02-2022 10:40-0400 Systolic blood pressure 115 mm[Hg] Kingsley Latisha Other [employer] Other 06-28-2022 09:30-0400 Body height 170.18 cm Harley Ball Other [employer] Other 06-28-2022 09:30-0400 Body mass index (BMI) [Ratio] 27.16 kg/m2 Harley Ball Other [employer] Other 06-28-2022 09:30-0400 Body weight 78.65 kg Harley Ball Other [employer] Other 06-28-2022 09:30-0400 Diastolic blood pressure 66 mm[Hg] Harley Ball Other [employer] Other 06-28-2022 09:30-0400 Respiratory rate 12 /min Harley Ball Other [employer] Other 06-28-2022 09:30-0400 Systolic blood pressure 115 mm[Hg] Harley Ball Other [employer] Other 06-26-2022 08:45-0400 Body height 170.18 cm Tondra Mapus Other [employer] Other 06-26-2022 08:45-0400 Body mass index (BMI) [Ratio] 27.75 kg/m2 Tondra Mapus Other [employer] Other 06-26-2022 08:45-0400 Body weight 80.38 kg Tondra Mapus Other [employer] Other 06-26-2022 08:45-0400 Diastolic blood pressure 61 mm[Hg] Tondra Mapus Other [employer] Other 06-26-2022 08:45-0400 Respiratory rate 16 /min Tondra Mapus Other [employer] Other 06-26-2022 08:45-0400 SaO2% (BldA) [Mass fraction] 96 % Tondra Mapus Other [employer] Other 06-26-2022 08:45-0400 Systolic blood pressure 105 mm[Hg] Tondra Mapus Other [employer] Other 03-20-2022 09:15-0500 Body height 170.18 cm Tondra Mapus Other [employer] Other 03-20-2022 09:15-0500 Body mass index (BMI) [Ratio] 26.15 kg/m2 Tondra Mapus Other [employer] Other 03-20-2022 09:15-0500 Body weight 75.75 kg Tondra Mapus Other [employer] Other 03-20-2022 09:15-0500 Diastolic blood pressure 57 mm[Hg] Tondra Mapus Other [facility] Other 03-20-2022 09:15-0500 Respiratory rate 16 /min Tondra Mapus Other [employer] Other 03-20-2022 09:15-0500 SaO2% (BldA) [Mass fraction] 98 % Tondra Mapus Other [facility] Other 03-20-2022 09:15-0500 Systolic blood pressure 117 mm[Hg] Tondra Mapus Other [facility] Other 01-17-2022 11:45-0400 Body height 170.18 cm DO Harley Ball Work Phone: [facility] 01-17-2022 11:22-0400 Diastolic blood pressure 68 mm[Hg] DO Harley Ball Work Phone: [facility] 01-17-2022 11:22-0400 Heart rate 60 /min DO Harley Ball Work Phone: [facility] 01-17-2022 11:22-0400 Systolic blood pressure 118 mm[Hg] DO Harley Ball Work Phone: [facility] 01-17-2022 11:05-0400 Body temperature 97.4 [degF] DO Harley Ball Work Phone: [facility] 01-17-2022 11:05-0400 Respiratory rate 18 /min DO Harley Ball Work Phone: [facility] 01-17-2022 11:05-0400 SaO2% (BldA) [Mass fraction] 95 % DO Harley Ball Work Phone: [facility] 01-17-2022 06:58-0400 Body weight 77.9 kg DO Harley Ball Work Phone: [facility] 01-15-2022 15:23-0400 Inhaled oxygen flow rate 2 L/min DO Harley Crepso Work Phone: [facility] 12-18-2021 09:45-0400 Body height 170.18 cm Tondra Mapus Other [employer] Other 12-18-2021 09:45-0400 Body mass index (BMI) [Ratio] 27.25 kg/m2 Tondra Mapus Other [employer] Other 12-18-2021 09:45-0400 Body weight 78.93 kg Tondra Mapus Other [employer] Other 12-18-2021 09:45-0400 Diastolic blood pressure 65 mm[Hg] Tondra Mapus Other [employer] Other 12-18-2021 09:45-0400 Respiratory rate 16 /min Tondra Mapus Other [employer] Other 12-18-2021 09:45-0400 SaO2% (BldA) [Mass fraction] 97 % Tondra Mapus Other [employer] Other 12-18-2021 09:45-0400 Systolic blood pressure 133 mm[Hg] Tondra Mapus Other [employer] Other 09-29-2021 13:13-0400 Blood Pressure Location Gagan DAVID [facility] 09-29-2021 13:13-0400 Diastolic blood pressure 74 mm[Hg] Gagan DAVID [facility] 09-29-2021 13:13-0400 Heart rate 60 /min Gagan MORGANL [facility] 09-29-2021 13:13-0400 Respiratory rate 16 /min Gagan NILL [facility] 09-29-2021 13:13-0400 Systolic blood pressure 138 mm[Hg] Gagan NILL General Surgery [facility] Enrique 07-17-2021 09:45-0400 Body height 170.18 cm Tondra Mapus Other [employer] Other 07-17-2021 09:45-0400 Body mass index (BMI) [Ratio] 30.69 kg/m2 Tondra Mapus Other [employer] Other 07-17-2021 09:45-0400 Body weight 88.91 kg Tondra Mapus Other [employer] Other 07-17-2021 09:45-0400 Diastolic blood pressure 73 mm[Hg] Tondra Mapus Other [employer] Other 07-17-2021 09:45-0400 Respiratory rate 16 /min Tondra Mapus Other [employer] Other 07-17-2021 09:45-0400 SaO2% (BldA) [Mass fraction] 97 % Tondra Mapus Other [employer] Other 07-17-2021 09:45-0400 Systolic blood pressure 163 mm[Hg] Tondra Mapus Other [employer] Other 06-06-2021 10:20-0500 Body height 170.18 cm Kingsley Latisha Other [employer] Other 06-06-2021 10:20-0500 Body mass index (BMI) [Ratio] 30.29 kg/m2 Kingsley Latisha Other [employer] Other 06-06-2021 10:20-0500 Body temperature 96.1 [degF] Kingsley Latisha Other [employer] Other 06-06-2021 10:20-0500 Body weight 87.73 kg Kingsley Latisha Other [employer] Other 06-06-2021 10:20-0500 Diastolic blood pressure 70 mm[Hg] Kingsley Latisha Other [employer] Other 06-06-2021 10:20-0500 Respiratory rate 18 /min Kingsley Latisha Other [employer] Other 06-06-2021 10:20-0500 SaO2% (BldA) [Mass fraction] 97 % Kingsley Latisha Other [employer] Other 06-06-2021 10:20-0500 Systolic blood pressure 160 mm[Hg] Kingsley Latisha Other [employer] Other 04-10-2021 09:15-0500 Body height 170.18 cm Tondra Mapus Other [employer] Other 04-10-2021 09:15-0500 Body mass index (BMI) [Ratio] 30.99 kg/m2 Tondra Mapus Other [employer] Other 04-10-2021 09:15-0500 Body weight 89.77 kg Tondra Mapus Other [employer] Other 04-10-2021 09:15-0500 Diastolic blood pressure 64 mm[Hg] Tondra Mapus Other [employer] Other 04-10-2021 09:15-0500 Respiratory rate 18 /min Tondra Mapus Other [employer] Other 04-10-2021 09:15-0500 SaO2% (BldA) [Mass fraction] 98 % Tondra Mapus Other [employer] Other 04-10-2021 09:15-0500 Systolic blood pressure 136 mm[Hg] Tondra Mapus Other [employer] Other 02-14-2021 10:00-0500 Body height 170.18 cm Kingsley Latisha Other [employer] Other 02-14-2021 10:00-0500 Body mass index (BMI) [Ratio] 30.98 kg/m2 Kingsley Latisha Other [employer] Other 02-14-2021 10:00-0500 Body temperature 96 [degF] Kingsley Latisha Other [employer] Other 02-14-2021 10:00-0500 Body weight 89.72 kg Kingsley Latisha Other [employer] Other 02-14-2021 10:00-0500 Diastolic blood pressure 60 mm[Hg] Kingsley Latisha Other [employer] Other 02-14-2021 10:00-0500 Respiratory rate 16 /min Kingsley Latisha Other [employer] Other 02-14-2021 10:00-0500 SaO2% (BldA) [Mass fraction] 97 % Kingsley Latisha Other [employer] Other 02-14-2021 10:00-0500 Systolic blood pressure 130 mm[Hg] Kingsley Latisha Other [employer] Other 01-03-2021 10:15-0400 Body height 170.18 cm Tondra Mapus Other [employer] Other 01-03-2021 10:15-0400 Body mass index (BMI) [Ratio] 31.01 kg/m2 Tondra Mapus Other [employer] Other 01-03-2021 10:15-0400 Body weight 89.81 kg Tondra Mapus Other [employer] Other 01-03-2021 10:15-0400 Diastolic blood pressure 67 mm[Hg] Tondra Mapus Other [employer] Other 01-03-2021 10:15-0400 Respiratory rate 16 /min Tondra Mapus Other [employer] Other 01-03-2021 10:15-0400 SaO2% (BldA) [Mass fraction] 99 % Tondra Mapus Other [employer] Other 01-03-2021 10:150400 Systolic blood pressure 151 mm[Hg] Tondra Varghese Other [employer] Other Encounters Encounter Date Encounter Type Care Provider Facility Start: 03-18-2023 End: 03-18-2023 ambulatory [facility] Start: 03-12-2023 (DM) Diabetes Tondra Varghese [facility] Start: 03-12-2023 End: 03-12-2023 ambulatory Tondra K Desireeus [facility] Other Start: 03-07-2023 End: 03-07-2023 ambulatory [facility] Start: 03-05-2023 End: 03-05-2023 ambulatory [facility] Start: 02-19-2023 End: 02-19-2023 ambulatory [facility] Start: 02-12-2023 Telephone encounter Harley HERRMANN [facility] Start: 02-12-2023 End: 02-12-2023 ambulatory KEVIN [facility] Other Start: 02-07-2023 End: 02-07-2023 ambulatory Harley Crespo Other [employer] Other Start: 02-07-2023 Telephone encounter Harley HERRMANN [facility] Start: 02-06-2023 End: 02-06-2023 ambulatory Tondra Varghese Other [employer] Other Start: 02-06-2023 Telephone encounter Viky Kwong [facility] Start: 02-01-2023 End: 02-01-2023 ambulatory [facility] Start: 01-29-2023 End: 01-29-2023 ambulatory Harley Crespo Other [employer] Other Start: 01-29-2023 Telephone encounter Harley HERRMANN [facility] Start: 01-25-2023 End: 01-28-2023 Evaluation and management of inpatient DELTA VARGAS [facility] Start: 01-17-2023 Telephone encounter Viky Kwong [facility] Start: 01-17-2023 End: 01-17-2023 ambulatory AB [facility] [employer] Other Start: 01-07-2023 End: 01-07-2023 ambulatory Harley Crespo Other [employer] Other Start: 01-07-2023 Office outpatient visit 25 minutes Kingsley Latisha [facility] Start: 01-07-2023 Telephone encounter Harley Crespo MONTE[facility] Start: 01-04-2023 End: 01-04-2023 ambulatory Kingsley Latisha Other [employer] Other Start: 01-04-2023 Telephone encounter Kingsley Latisha [facility] Start: 01-01-2023 End: 01-01-2023 ambulatory Kingsley Latisha Other [employer] Other Start: 01-01-2023 Telephone encounter Kingsley Latisha [facility] Start: 12-31-2022 End: 12-31-2022 ambulatory Harley Crespo Other [employer] Other Start: 12-31-2022 Office outpatient visit 25 minutes Harley Crespo [facility] Start: 12-31-2022 Telephone encounter Harley HERRMANN [facility] Start: 12-13-2022 End: 12-13-2022 ambulatory Denita Chairez Other [employer] Other Start: 12-13-2022 Nursing evaluation o f patient and report Denita Chairez [facility] Start: 11-23-2022 End: 11-23-2022 ambulatory Tondra Mapus Other [employer] Other Start: 11-23-2022 Telephone encounter Tondra Desireeus [facility] Start: 10-12-2022 End: 10-12-2022 ambulatory Tondra Mapus Other [employer] Other Start: 10-12-2022 Telephone encounter Tondra Desireeus [facility] Start: 10-09-2022 Telephone encounter Harley Crespo FP [facility] Start: 10-09-2022 End: 10-09-2022 [facility] [employer] Other Start: 10-01-2022 End: 10-01-2022 ambulatory Harley Crespo Other [employer] Other Start: 10-01-2022 Telephone encounter Harley Crespo FP [facility] Start: 09-27-2022 End: 09-27-2022 ambulatory Kingsley Latisha Other [employer] Other Start: 09-27-2022 Telephone encounter Kingsley Latisha [facility] Start: 09-26-2022 End: 09-26-2022 ambulatory Harley Crespo Other [employer] Other Start: 09-26-2022 Telephone encounter Harley Cherie FP [facility] Start: 09-19-2022 End: 09-19-2022 ambulatory Kingsley Latisha Other [employer] Other Start: 09-19-2022 Telephone encounter Kingsley Latisha [facility] Start: 09-12-2022 End: 09-12-2022 ambulatory Harley Crespo Other [employer] Other Start: 09-12-2022 Telephone encounter Harley Crespo MONTEZ [facility] Start: 09-03-2022 End: 09-03-2022 ambulatory Harley Crespo Other [employer] Other Start: 09-03-2022 Telephone encounter Harley Garcia [facility] Start: 08-31-2022 End: 08-31-2022 ambulatory Harley Cherie Other [employer] Other Start: 08-31-2022 Office outpatient visit 25 minutes Harley Crespo [facility] Start: 08-10-2022 End: 08-10-2022 ambulatory Harley Crespo Other [employer] Other Start: 08-10-2022 Telephone encounter Harley HERRMANN Jose [facility] Start: 08-09-2022 End: 08-10-[address] HARLEY CRESPO [facility] [employer] Other Start: 08-09-2022 Telephone encounter Kingsley Latisha [facility] Start: 07-31-2022 End: 07-31-2022 ambulatory [facility] Start: 07-24-2022 End: 07-24-2022 [facility] Start: 07-02-2022 End: 07-02-2022 ambulatory Kingsley Latisha Other [employer] Other Start: 07-02-2022 Office outpatient visit 25 minutes Kingsley Latisha [facility] Start: 06-28-2022 End: 06-28-2022 ambulatory Harley Crespo Other [employer] Other Start: 06-28-2022 Patient encounter procedure Harley Crespo [facility] Start: 06-26-2022 (DM) Diabetes Tondra Mapus [facility] Start: 06-26-2022 End: 06-26-2022 ambulatory Tondra Mapus Other [employer] Other Start: 06-25-2022 End: 06-25-2022 ambulatory DEISY PONCEPARUL [facility] Start: 06-25-2022 End: 06-26-2022 ambulatory KINGSLEY LATISHA Facility:[facility] Start: 06-18-2022 End: 06-19-2022 ambulatory TONDRA MAPUS Facility:[facility] Start: 06-05-2022 End: 06-06-[address] HARLEY CRESPO Facility:[facility] Start: 05-29-2022 End: 05-29-2022 ambulatory KEVIN ARTEAGA [facility] Start: 05-26-2022 End: 05-26-2022 ambulatory Harley Crespo Other [employer] Other Start: 05-26-2022 Telephone encounter Harley Crespo [facility] Start: 05-25-2022 End: 05-25-2022 ambulatory Tondra Mapus Other [employer] Other Start: 05-25-2022 Telephone encounter Viky Kwong [facility] Start: 05-03-2022 End: 05-04-[address] PINKY BISHOP Facility:[facility] Start: 05-02-2022 End: 05-02-2022 ambulatory PINKY BISHOP [facility] Start: 04-18-2022 End: 04-19-[address] PINKY BISHOP Facility:[facility] Start: 04-03-2022 End: 04-03-2022 ambulatory LAILA DUARTE [facility] Start: 03-22-2022 End: 03-23-[address] HIGINIO FLANAGAN Facility:[facility] Start: 03-21-2022 Emergency department patient visit [facility] Start: 03-21-2022 End: 03-21-2022 Emergency department patient visit [facility] Start: 03-20-2022 (DM) Diabetes Tondra Mapus [facility] Start: 03-20-2022 End: 03-20-2022 ambulatory Tondra Mapus Other [employer] Other Start: 03-12-2022 End: 03-13-2022 Evaluation and management of inpatient DR PARUL CHU Facility:[facility] Start: 03-09-2022 End: 03-10-[address] SHANNON LANDIS Facility:[facility] Start: 03-02-2022 End: 03-03-[address] HARLEY CRESPO Facility:[facility] Start: 02-19-2022 End: 02-19-2022 ambulatory Tondra Mapus Other [employer] Other Start: 02-19-2022 Telephone encounter Tondra Mapus [facility] Start: 02-08-2022 End: 02-08-2022 ambulatory Tondra Mapus Other [employer] Other Start: 02-08-2022 Telephone encounter Tondra Mapus [facility] Start: 01-15-2022 End: 01-17-2022 Evaluation and management of inpatient DO Harley Crespo Work Phone: [facility] [place] [facility] Start: 01-15-2022 End: 01-15-[address] HARLEY CRESPO Facility:[facility] Start: 12-18-2021 Registered Recurring DO Zamudio in [place] Work Phone: [facility] Start: 12-18-2021 (DM) Diabetes Tondra Mapus [facility] Start: 12-18-2021 End: 12-18-2021 ambulatory Tondra Mapus Other [employer] Other Start: 12-08-2021 End: 12-09-[address] HARLEY CRESPO Facility:[facility] Start: 11-30-2021 End: 12-01-2021 ambulatory KINGSLEY GOOD Facility:[facility] Start: 11-24-2021 End: 11-25-[address] HARLEY CRESPO Facility:[facility] Start: 11-16-2021 End: 11-16-2021 ambulatory Tondra Mapus Other [employer] Other Start: 11-16-2021 Telephone encounter Tondra Mapus [facility] Start: 2021 End: 2021 ambulatory Tondra Mapus Other [employer] Other Start: 2021 Telephone encounter Tondra Mapus [facility] Start: 10-31-2021 End: 10-31-2021 ambulatory Tondra Mapus Other [employer] Other Start: 10-31-2021 Telephone encounter Tondra Mapus [facility] Start: 10-27-2021 End: 10-27-[address] HARLEY CRESPO Facility:[facility] Start: 10-20-2021 Telephone encounter Abdon martins MD Work Phone: Hematology/Oncology Comment on above: Lab Orders Start: 10-03-2021 End: 10-04-[address] GAGAN DAVID . Facility:[facility] Start: 09-29-2021 End: 09-29-2021 Patient encounter procedure Gagan DAVID General Surgery [facility] Start: 09-04-2021 End: 09-05-[address] HARLEY CRESPO Facility:[facility] Start: 08-26-2021 End: 08-27-[address] HARLEY CRESPO Facility:[facility] Start: 07-24-2021 End: 07-24-2021 ambulatory Tondra Mapus Other [employer] Other Start: 07-24-2021 Telephone encounter Tondra Mapus [facility] Start: 07-17-2021 (DM) Diabetes Tondra Mapus [facility] Start: 07-17-2021 End: 07-17-2021 ambulatory Tondra Mapus Other [employer] Other Start: 06-19-2021 End: 06-19-2021 ambulatory Shannon Escobar Other [employer] Other Start: 06-19-2021 Telephone encounter Shannon Escobar [facility] Start: 06-06-2021 End: 06-06-2021 ambulatory Kingsley Latisha Other [employer] Other Start: 06-06-2021 Office outpatient visit 25 minutes Kingsley Latisha [facility] Start: 05-22-2021 End: 05-22-2021 ambulatory Tondra Mapus Other [employer] Other Start: 05-22-2021 Telephone encounter Tondra Mapus [facility] Start: 05-16-2021 End: 05-16-2021 ambulatory Tondra Mapus Other [employer] Other Start: 05-16-2021 Telephone encounter Tondra Mapus [facility] Start: 04-10-2021 (DM) Diabetes Tondra Mapus [facility] Start: 04-10-2021 End: 04-10-2021 ambulatory Tondra Mapus Other [employer] Other Start: 04-10-2021 Telephone encounter Tondra Mapus [facility] Start: 02-14-2021 End: 02-14-2021 ambulatory Kingsley Latisha Other [employer] Other Start: 02-14-2021 Patient encounter procedure Kingsley Latisha [facility] Start: 02-14-2021 Telephone encounter Tondra Mapus [facility] Start: 01-03-2021 (DM) Diabetes Tondra Mapus [facility] Start: 10-14-2018 End: 10-15-2018 Patient encounter procedure AB [facility] Facility:[facility] Start: 02-24-2018 End: 02-25-2018 Evaluation and management of inpatient PINKY BISHOP Facility:[facility] Procedures Date Procedure Procedure Detail Performing Clinician Start: 03-11-2022 Assistance with Respiratory Ventilation, Less than 24 Consecutive Hours, Continuous Positive Airway Pressure DR PINKY BISHOP Start: 01-16-2022 CL [facility] Angio w/grafts DO Harley Crespo Work Phone: Start: 01-16-2022 DO Harley Crespo Work Phone: Start: 07-10-2021 Colonoscopy Gagan DAVID Start: 07-10-2021 Esophagogastroduodenoscopy Gagan DAVID Start: 07-13-2020 Percutaneous coronary intervention Smith DAVID Comment on above: stent LAD Start: 04-25-2020 Adult depression screening assessment Abdon Walker MD Work Phone: Start: 04-01-2018 Cardiac catheterization Gagan DAVID Start: 02-24-2018 DILATION OF 1 COR ART WITH DRUG-ELUT INTRA, PERC APPROACH EHAB A [place] Start: 02-24-2018 FLUOROSCOPY OF L INT MAMM GRAFT USING OTH CONTRAST [facility] A [place] Start: 02-24-2018 FLUOROSCOPY OF MULT COR A GRAFT USING OTH CONTRAST [facility] A [place] Start: 02-24-2018 FLUOROSCOPY OF MULTIPLE CORONARY ARTERIES USING OTH CONTRAST [facility]HAB A [place] Start: 04-01-2017 Percutaneous coronary intervention Smith DAVID Comment on above: vein graft Start: 04-01-2016 Aortic stent (physical object) Gagan ROBBINS Start: 04-01-2015 Percutaneous coronary intervention Smith DAVID Comment on above: stent/vein graft Start: 04-01-2012 Percutaneous transluminal coronary angioplasty Gagan DAVID Start: 04-01-2009 Cardiac catheterization Gagan DAVID Start: 04-01-2007 Percutaneous transluminal coronary angioplasty Gagan DAVID Start: 04-01-2004 Cardiac catheterization Gagan DAVID Start: 04-01-2002 Cardiac catheterization Gagan DAVID Start: 04-01-1991 Coronary artery bypass graft Gagan Hastings Percutaneous coronary intervention Gagan DAVID Comment on above: stent/vein graft Plan of Treatment Date Care Activity Detail Author Start: 10-26-2023 DIABETES SCREEN DIABETES SCREEN [facility] Start: 01-17-2022 [facility] Start: 01-17-2022 Radionuclide myocard ial perfusion stress study NM rachel perf SPECT rest & str [facility] Start: 01-17-2022 Referral to cardiac rehabilitation program [facility] Start: 01-16-2022 Hospital admission [facility] Start: 01-15-2022 Hospital admission [facility] Start: 11-30-2021 Influenza vaccination INFLUENZA (#1) [facility] Start: 10-24-2021 End: 12-24-2021 CBC W Auto Differential panel - Blood CBC + DIFF Lab Routine Monoclonal gammopathy Expected: 10/24/2021, Expires: 12/24/2021 [facility] [employer] Work Phone: Comment on above: Expected: 10/24/2021 , Expires: 12/24/2021 Start: 04-25-2021 Adult depression screening assessment DEPRESSION SCREENING [facility] Start: 04-01-2021 ADVANCE DIRECTIVE DISCUSSION ADVANCE DIRECTIVE DISCUSSION [facility] Start: 11-21-2020 COVID-19 VACCINE (3 - Booster for Pfizer series) COVID-19 VACCINE (3 - Booster for Pfizer series) [facility] Start: 11-07-2001 SHINGRIX VACCINE (1 of 2) SHINGRIX VACCINE (1 of 2) [facility] Start: 11-07-1996 COLOGUARD (FIT-DNA) COLOGUARD (FIT-D NA) [facility] Start: 11-07-1996 Colonoscopy COLONOSCOPY [facility] Start: 11-07-1996 COLORECTAL CANCER SCREENING COLORECTAL CANCER SCREENING [facility] Start: 11-07-[address] COLONOGRAPHY Tricia langston [facility] Start: 11-07-1996 FECAL OCCULT BLOOD FECAL OCCULT BLOO D [facility] Start: 11-07-1996 SIGMOIDOSCOPY SIGMOIDOSCOPY Maddy kearns [facility] Start: 11-07-1986 LIPID SCREEN LIPID SCREEN [facility] Start: 11-07-1970 Urine microalbumin profile DTAP,TDAP,TD (1 - Tdap) [facility] Start: 11-07-1969 HEPATITIS C SCREENING HEPATITIS C SC REENING [facility] Start: 1950 ABDOMINAL AORTIC ANEURYSM SCREENING ABDOMINAL AORTIC ANEURYSM SCREENING [facility] [facility] Work Phone: Immunizations Immunization Date Immunization Notes Care Provider Poli patel 12-13-2022 influenza, high dose seasonal, preservative-free Denita Chairez Other [facility] Other 12-15-2021 influenza, high dose seasonal, preservative-free Harley Crespo Other [facility] Other 02-21-2021 COVID-19 mRNA, Comirnaty (Pfizer) DO Harley Crespo Work Phone: [facility] 06-21-2020 COVID-19 Vaccine Pfi zer - Documentation Purposes Only Viky Kwong Other [facility] 05-30-2020 COVID-19 Vaccine Pfi zer - Documentation Purposes Only Viky Kwong Other [facility] 01-17-2018 pneumococcal polysaccharide vaccine, 23 valent Abdon Walker MD Work Phone: [facility] 01-17-2018 Seasonal trivalent influenza vaccine, adjuvanted, preservative free Abdon Walker MD Work Phone: [facility] 01-16-2017 influenza, high dose seasonal, preservative-free Abdon Walker MD Work Phone: [facility] 11-30-2016 influenza, injectabl e, quadrivalent, preservative free Abdon Walker MD Work Phone: [facility] 11-14-2016 pneumococcal conjuga te vaccine, 13 valent Abdon Walker MD Work Phone: [facility] 04-02-2016 pneumococcal polysaccharide vaccine, 23 valent Viky Kwong Other [facility] 01-23-2012 influenza, seasonal, injectable Abdon Walker MD Work Phone: [facility] 12-13-2010 influenza, seasonal, injectable Abdon Walker MD Work Phone: [facility] 01-27-2009 novel [id number], preservative-free, injectable Abdon Walker MD Work Phone: [facility] 01-19-2008 influenza virus vaccine, whole virus Abdon Walker MD Work Phone: [facility] Payers Date Payer Category Payer Unknown MMO MMO MEDICARE SUPPLEMENT [id number] 2019-Present [phone] [address] [place] [address] Indemnity [id number] 2017 Self-pay [id number] 2017 Unknown [id number] 2017 Unknown [id number] 2016 Medicare MEDICARE MEDICAR E A AND B [id number] 2016-Present [phone] [address] [address] [place] [address] Medicare [id number] 1959 Medicare [id number] 1959 Unknown [id number] 1951 Unknown [id number] 2.16.840.1.086785.3.579.2.647 1951 Unknown [id number] 2.16.840.1.994194.3.579.2.647 1951 Unknown [id number] 2.16.840.1.034541.3.579.2.593 1951 Unknown [id number] 2.16.840.1.152228.3.579.2.593 1951 Unknown [id number] 2.16.840.1.220875.3.579.2.593 1951 Unknown [id number] 2.16.840.1.561107.3.579.2.593 1951 Unknown [id number] 2.16.840.1.046130.3.579.2.593 1951 Unknown [id number] 2.16.840.1.539670.3.579.2.593 1951 Unknown [id number] 2.16.840.1.047887.3.579.2.593 1951 Unknown [id number] 2.16.840.1.275619.3.579.2.593 1951 Unknown [id number] 2.16.840.1.440278.3.579.2.593 1951 Unknown [id number] 2.16.840.1.510434.3.579.2.593 1951 Unknown [id number] 2.16.840.1.815010.3.579.2.593 1951 Unknown [id number] 2.16.840.1.863670.3.579.2.593 1951 Unknown [id number] 2.16.840.1.117869.3.579.2.593 1951 Unknown [id number] 2.16.840.1.100588.3.579.2.593 1951 Unknown [id number] 2.16.840.1.732775.3.579.2.593 1951 Unknown [id number] 2.16.840.1.604494.3.579.2.593 1951 Unknown [id number] 2.16.840.1.964622.3.579.2.593 1951 Unknown [id number] 2.16.840.1.630084.3.579.2.593 Unknown [id number] Unknown [id number] 2.16.840.1.567561.3.579.2.531 Social History Date Type Detail Facility Unknown if ever smoked [facility] Other Sex Assigned At [facility] Other Start: 09-29-2021 End: 01-16-2022 Tobacco smoking status Ex-smoker (finding) [facility] Tobacco smoking status Never [facility] Start: 07-23-2018 Tobacco use and exposure Smokeless tobacco non-user [facility] Start: 10-25-2020 Alcohol intake Ex-drinker (finding) [facility] Start: 1950 Sex Assigned At Not on file C [facility] Start: 1950 Sex Assigned At Male [facility] Medical Equipment Procedure Code Equipment Code Equipment Origin al Text Equipment Identifier Dates Start: 10-31-2016 CL STENT DC 2. 0 X 15 FDA Start: 07-12-2020 Goals Date Patient Goal Desired Activity /State Functional Status Date Assessment Result Facility 01-17-2022 Functional status Patient at [facility] Work Phone: 09-29-2021 Functional Status N/A [facility] Mental Status Date Assessment Result Facility 01-17-2022 Cognitive function Cognitive Sta tus Patient at Baseline [facility] Work Phone: Clinical Notes 01-03-2021 to 03-18-2023 Note Date & Type Note Facility 03-18-2023 [facility] Reason for visit: Complete heart block on event monitor, HFrEF 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%, atrial tachycardia 03/18/23 Here for follow-up regarding tachycardia device check 03/2023 shows 2-1 atrial rate, likely atrial tachycardia, mildly high ventricular rate - his metoprolol was increased last week to 100 mg daily and heart rate today is 101 bpm he has been asymptomatic of tachycardia, at times he feels a palpitation but otherwise denies any chest pain, shortness of breath, lightness, dizziness he was having lightheadedness prior to biventricular upgrade and that has resolved with upgrade 02/01/23: Patient is here for hospital follow up s/p NSTEMI He had cardiac cath 01/25/23 which should 4/4 patent bypass grafts, sluggish arterial flow, antiplatelet and OAC recommended He was found to have reduced ef of 10, NICM likely related to 100% RV pacing as he had PPM implant for AV block 03/21/22 and prior to PPM his EF was 45-50% per TTE 03/12/22 and MUGA scan 03/2022 EF 53% He was discharged on HFrEF GDMT but was not given any prescriptions and therefore has not changed his home medication regimen He has been feeling well without complaints of SOB, DE LA GARZA, LE edema, orthopnea. He had chest pain once and took nitroglycerin which provided relief. He was suppose to have his imdur dose increased but again no RX given He is planned for ICD BiV upgrade but this has been delayed on multiple occasions unfortunately due to scheduling conflicts with EP lab Accompanied by Son 04/2022 HPI: Lani Lizama is a 72 y.o. year old with past medical history of CAD s/p CABG, PVD, DM2 and hypertension. He was recently admitted to [facility] for NSTEMI. Had inpatient stress test and heart cath. Denies SOB but still having chest pain and has taken nitroglycerin a few times for relief. Had CT chest last week s/p discharge. Cardiac catheterization revealed patent bypass grafts and worsening shishmaref ira vessel disease. Medications were adjusted. I had a conversation with his son also who mentions pt having bradycardia for ~1-2 months where HR was in 40's. It is unclear as to why he got the event monitor but this revealed presence of high degree AV block on 03/19/22 @9pm. Pt did not report syncope but state fatigue. He is on BB which he needs for CAD and Ischemic CMP. PMH: Past Medical History: Diagnosis Date Carotid artery stenosis Coronary artery disease Diabetes mellitus (CMS/HCC) Hyperlipidemia Hypertension PVD (peripheral vascular disease) (CMS/HCC) Third degree heart block (CMS/HCC) PSH: Past Surgical History: Procedure Laterality Date CARDIAC CATHETERIZATION 07/12/2020 CARDIAC CATHETERIZATION 10/15/2018 CARDIAC CATHETERIZATION 02/24/2018 CARDIAC CATHETERIZATION 09/27/2015 CORONARY ARTERY BYPASS GRAFT CORONARY STENT PLACEMENT SH: Social Determinants of Health Tobacco Use: Medium Risk (02/01/2023) Patient History Smoking Tobacco Use: Former Smokeless Tobacco Use: Never Passive Exposure: Not on file Alcohol Use: Not on file Financial Resource Strain: Low Risk (01/25/2023) Overall Financial Resource Strain (CARDIA) Difficulty of Paying Living Expenses: Not hard at all Food Insecurity: Unknown (01/25/2023) Hunger Vital Sign Worried About Running Out of Food in the Last Year: Never true Ran Out of Food in the Last Year: Not on file Transportation Needs: Unknown (01/25/2023) PRAPARE - Transportation Lack of Transportation (Medical): No Lack of Transportation (Non-Medical): Not on file Physical Activity: Not on file Stress: Not on file Social Connections: Not on file Intimate Partner Violence: Unknown (01/25/2023) Humiliation, Afraid, Rape, and Kick questionnaire Fear of Current or Ex-Partner: No Emotionally Abused: Not on file Physically Abused: Not on file Sexually Abused: Not on file Depression: Not on file Housing Stability: Unknown (01/25/2023) Housing Stability Vital Sign Unable to Pay for Housing in the Last Year: Not on file Number of Places Lived in the Last Year: Not on file Unstable Housing in the Last Year: No Allergies: No Known Allergies Weight: No results found for: PTWEIGHT Meds: Current Outpatient Medications on File Prior to Visit Medication Sig Dispense Refill ALPRAZolam (Xanax) 0.5 mg tablet Take 1 tablet by mouth in the morning, afternoon, and at bedtime. aspirin 81 mg chewable tablet Chew 1 tablet every day by oral route. bumetanide (Bumex) 0.5 mg tablet Take 1 tablet (0.5 mg) by mouth in the morning. (Patient taking differently: Take 0.5 mg by mouth if needed each day.) 90 tablet 3 clopidogrel (Plavix) 75 mg tablet Take 1 tablet by mouth in the morning. docusate sodium (Colace) 100 mg capsule Take 100 mg by mouth in the morning. empagliflozin (Jardiance) 10 mg Take 1 tablet every day by oral route. insulin detemir (Levemir) 100 unit/mL injection Inject under the skin in the morning and at bedtim (more content not included)... [facility] 03-18-2023 Note Patient here for 2 w craig follow up per Dr. Bishop. Metoprolol was increased to 100mg to decrease atrial tachycardia. Still gets random chest pain and palpitations. Lightheadedness has been better and has resolved. Denies SOB. Review of Systems Cardiovascular: Positive for chest pain and palpitations. Musculoskeletal: Positive for arthritis, back pain, joint pain and myalgias. All other systems reviewed and are negative. [facility] 03-12-2023 Evaluation note Encounter Date Diagnosis Assessment Notes Mar, Dietary counseling and surveillance (ICD-10 - Z71.3) Eat a diet rich in fruits and vegetables material was printed Mar, Type 2 diabetes mellitus with diabetic chronic kidney disease (ICD-10 - E11.22) Type 2 diabetes material was printed 1. Controlled, a Type 2 diabetes with A1c of 7.1% for age/comorbiditi es 2. Blood glucose levels according to [employer] cgm download 02/27/2023-03/01: Average glucose 134. Above 250-0%, >180- 9%, 70-180-91%, <70-0%, <54-0%. CV 23.9%. Reviewed download with pt, no incidence of hypoglycemia. Once pt finishes with levemir will be switching to tresiba, reviewed with pt tresiba dosing 20 units qam. Reviewed with pt how to titrate basal/bolus insulin according to fasting am/ac supper; meal to meal glucose pattern. Pt verbalizes understanding. 3. Patient is alert, oriented and receptive to making changes or counseling. Notes: Seen for an assessment of current glucose pattern, changes in treatment plan, with this time spent in counseling and coordination of care related to diabetes, risks, and benefits of treatment, medications, and side effects. TOPICS REVIEWED: 1. Time was spent reviewing: a. Basic concepts of diabetes, progressive beta cell , concepts of basal/bolus/cor rective insulin requirements. Basal: The goal is fasting blood glucose of 90-130mg. IF fasting blood glucose starts to run under 100mg 3x's/ week, decrease dose by 10%. Bolus: The goal is to hold the blood glucose level steady meal to meal. If pt. is going to have increased physical activity after a meal, decrease the schedule meal dose prior to the activity by 30-50%. If pt. skips a meal do not take this dose. Correction: The goal is to correct an elevated glucose back into the 100-150mg range b. Nutrition: Concepts of healthy diet, encouraged to decrease saturated fat in diet and increase non-starchy vegetables and fruits in diet. BMI: Pt. needs to select one small change to decrease caloric intake or increase physical activity to help decrease weight. c. Correct treatment of hypoglycemia, carry a glucose source at all times on your person, in vehicles, and at bedside. Can use glucose tablets/4, four ounces of pop or juice equal to 15 G of carbohydrate. Blood glucose should be 100 mg/dl or higher when driving. d. ADA glucose goals for age and medical complexity reviewed e. Patient questions addressed 2. Activity/exerci se: Encouraged to start any form of physical activity. Start low level and increase slowly to a minimal goal of 150 minutes/week. Limit activity to what is allowed by other issues such as cardiac, pulmonary or orthopedic restrictions. 3. Standards of care: Reminded to have an annual dilated eye exam, A1C every 3 months, urine testing for microalbumin once/year, check feet daily and report any cuts or sores that do not appear to be healing. 4. Meter: Plan to check blood glucose: Please check blood glucose levels 4 times/day. Back to back meals reveal effectiveness of bolus dosing. The blood glucose data is used to determine insulin doses and confirm symptoms for hypoglycemia and hyperglcyemia. The blood glucose data is used to determine insulin doses, and confirm symptoms for hypoglycemia and hyperglcyemia.5 . [facility]. Contact office if any issues or concerns with patterns of hypoglycemia, hyperglycemia, or diabetes medication issues. 6. Prescriptions: BI PAP-Jardiance was denied, pt given information on [facility] diabetes discount program instructed to apply order sent for jardiance 10mg once daily 30 day 11 refills *; GUTIERREZ PAP-Novolog/aislinn siba/Ozempic approved through 03/31/24; 7. Prescriptions will not be filled unless you are compliant with follow up appointments or have a follow up appointment scheduled as ordered by your provider. Refills should be requested at the time of your visit. Mar, HTN (hypertension) (ICD-10 - I10) About hypertension material was printed on diony. Mar, [facility] current use of insulin (ICD-10 - Z79.4) Mar, Hyperlipidemia (ICD-10 - E78.5) High cholesterol material was printed 05/2022 ldl 69- on statin. Mar, BMI 27.0-27.9,adult (ICD-10 - Z68.27) Eating healthy: tips to make it easier material was printed [facility] Other 12-07-2023 [facility] Cardiology Clinic Note Chief Complaint: Patient here for follow up. Carotid US was done yesterday at [facility]. Says his HR has been elevated lately, around 119. Had his device interrogated a few days ago. Still has to take nitroglycerin at times for chest pain. HPI: Lani Lizama is a 72 y.o. male being seen in post hospital follow up Hospital course: And admitted to the hospital on 01/25 as a direct transfer from [facility], With worsening chest pain for the last 2 months. He went to the ER and his troponins were positive he was transferred to us for further management. The patient had coronary angiography and December 2021 showed patent LAD/MENJIVAR graft, patent SVG to OM and PDA and most recent echo showed LVEF 45 to 50%. the patient is known to have coronary artery disease s/p CABG and multiple PCI in the past He was taken to cardiac cath on 01/25 : Coronary angiogram shows stable coronary artery disease with patent 4 out of 4 bypass grafts. Normal left filling pressures. Normal right filling pressures. no pulmonary hypertension. Reduced cardiac output and cardiac index. Uncontrolled systemic hypertension. Findings are consistent with non-ischemic cardiomyopathy ( EF 10%) Given the severely reduced ejection fraction and sluggish flow in the coronary arterial tree it is recommended to add anticoagulation therapy to this patient's regimen. 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 It is recommended to consult with electrophysiology service regarding upgrade of his dual-chamber pacemaker to a biventricular ICD device. Patient to be discharge home today with holding Eliquis and to return coming for upgrade to BiV/ICD 02/01/2023 He was found to have reduced ef of 10, NICM likely related to 100% RV pacing as he had PPM implant for AV block 03/21/22 and prior to PPM his EF was 45-50% per TTE 03/12/22 and MUGA scan 03/2022 EF 53% He was discharged on HFrEF GDMT but was not given any prescriptions and therefore has not changed his home medication regimen He has been feeling well without complaints of SOB, DE LA GARZA, LE edema, orthopnea. He had chest pain once and took nitroglycerin which provided relief. He was suppose to have his imdur dose increased but again no RX given He is planned for ICD BiV upgrade but this has been delayed on multiple occasions unfortunately due to scheduling conflicts with EP lab Accompanied by Son Cardiology ROS: Review of Systems Cardiovascular: Positive for chest pain and palpitations. Musculoskeletal: Positive for arthritis, back pain, joint pain and myalgias. Neurological: Positive for light-headedness. All other systems reviewed and are negative. Past Medical History He has a past medical history of Carotid artery stenosis, Coronary artery disease, Diabetes mellitus ([facility]), Hyperlipidemia, Hypertension, PVD (peripheral vascular disease) ([facility]), and Third degree heart block ([facility]). Surgical History He has a past surgical history that includes Cardiac catheterization (07/12/2020); Cardiac catheterization (10/15/2018); Cardiac catheterization (02/24/2018); Cardiac catheterization (09/27/2015); Coronary stent placement; and Coronary artery bypass graft. Social History He reports that he has quit smoking. His smoking use included cigarettes. He has never used smokeless tobacco. He reports that he does not drink alcohol and does not use drugs. Family History Family History Problem Relation Name Age of Onset Heart attack Mother Other (malignant neoplastic disease) Father Other (malignant neoplastic disease) Brother Heart attack Maternal Grandmother Heart attack Maternal Grandfather Allergies Patient has no known allergies. Medications Current Outpatient Medications: ALPRAZolam (Xanax) 0.5 mg tablet, Take 1 tablet by mouth in the morning, afternoon, and at bedtime., Disp: , Rfl: aspirin 81 mg chewable tablet, Chew 1 tablet every day by oral route., Disp: , Rfl: bumetanide (Bumex) 0.5 mg tablet, Take 1 tablet (0.5 mg) by mouth in the morning., Disp: 90 tablet, Rfl: 3 clopidogrel (Plavix) 75 mg tablet, Take 1 tablet by mouth in the morning., Disp: , Rfl: docusate sodium (Colace) 100 mg capsule, Take 100 mg by mouth in the morning., Disp: , Rfl: empagliflozin (Jardiance) 10 mg, Take 1 tablet every day by oral route., Disp: , Rfl: insulin detemir (Levemir) 100 unit/mL injection, Inject under the skin in the morning and at bedtime., Disp: , Rfl: insulin lispro (HumaLOG U-100 Insulin) 100 unit/mL injection, Inject under the skin with breakfast, with lunch, and with evening meal., Disp: , Rfl: isosorbide mononitrate ER (Imdur) 60 mg 24 hr tablet, Take 1 tablet (60 mg) by mouth in the morning., Disp: 30 tablet, Rfl: 11 lisinopril 2.5 mg tablet, Take 1 tablet (2.5 mg) by mouth in the morning and at bedtime., Disp: 180 tablet, Rfl: (more content not included)...[facility]11-21-2023 NotePatient seen for wound check s/p BiV ICD upgrade with extraction of prior implanted pacemaker on 02/12/2023. Wound is clean, dry, intact, and well approximated with dried scant blood. Discussed wound care including avoiding, rubbing, lotions, direct shower head pressure, caution with seat belt and avoiding other irritants. No lifting heavy weights using arm on the same side. Do not lift elbow above the shoulder on the same side for 4-6 weeks. No driving for 3 weeks. Keep scheduled appointment with device clinic and Dr. Bishop. RECOMMENDATIONS: 1. Dressing to be removed after 1week. 2. Do not wet the incision for 7 days. 3. No lifting heavy weights using arm on the same side. 4. Do not lift elbow above the shoulder on the same side for 4-6 weeks. 5. No driving for 1 month.[facility]11-14-2023 NoteBiV- ICD UPGRADE & RV LEAD EXTRACTION PROCEDURE NOTE DATE OF PROCEDURE: 02/12/2023 PERFORMING PHYSICIAN: Dr. Kevin Arteaga GRAVEL WHEELER: Dr Jamie Dupree CONSENT: Patient LOCATION: EP Lab PROCEDURE PERFORMED: 1. Implantation of Biventricular ICD ([employer]). 2. Explantation of previously implanted pacemaker generator ([employer]). 3. RV pacing lead extraction. 4. Coronary sinus venogram. 5. ICD pocket revision. 6. U/S access INDICATIONS: 1. Cardiomyopathy with no reversibe cause 2. Dilated cardiomyopathy 3. Chronic RV pacing (100%) 4. Chronic SHF NYHA Class III PROCEDURAL SEDATION: Versed and Fentanyl. Moderate sedation was administered by the sedation nurse under my supervision and noted in the CVL log. Intraprocedural face to face sedation time: 187min. Monitoring: Cardiac telemetry, Blood pressure, continuous pulse oxymetry. FLUROSCOPY: 44.3minutes/354mGy. EBL: 25cc SPECIMEN REMOVED: None PREPARATION: 72 year old with past medical history of CAD s/p CABG, PVD, DM2 and hypertension with cardiac catheterization revealed patent bypass grafts and worsening shishmaref ira vessel disease. Event monitor revealed presence of high degree AV block on 03/19/22 @9pm. Pt underwent a dual chamber PPM on 03/21/22 and subsequently was noted to have drop in EF to 10% with concomitant 100% RV pacing. 45-50% per TTE 03/12/22 and MUGA scan 03/2022 EF 53%. So the decision was made to upgrade the device to BiV ICD. PROCEDURAL DETAILS: The patient was brought and the device was programed to VOO mode, as he was pacemaker dependent. Patient was brought to the EP lab in the post absorptive state. A procedural pause was performed identifying the patient, the precedure to be performed and the site of implant. The left chest was prepped and draped in the usual sterile fashion. Preoperative antibiotics IV was administered. Patient was placed in trendelenberg position and ultrasound was used to evaluate the patency of left axillary vein. Once it was determined that the vein was patient, I decided to proceed with opening of the pocket. Local infiltration of 1% Lidocaine was performed, and an incision was created in the left upper chest. Dissection was then performed using cautery down to the capsule of the previously implanted device. Two venous access was acquired and therafter sheath was placed. RV ICD lead was advanced into the RVOT and with manipulation, I got the lead to position in the lower mid septum. This was chosen and the sheath split and the lead secured in the pocket using three 1-0 Silk sutures. Next, we proceeded to place an LV lead. The Shannon sheath was advanced, and EZ steer was used to cannulate the CS. There was difficulty in cannulating the CS. So I used an inner cannula and wire technique and this was still challenging. I then removed the Shannon system and used a [employer] CS sheath over a 9F short sheath. I used a glide wire for support which selectively engaged the CS body. The sheath was advanced and venogram was performed. This revealed a good postero-lateral vein, but other than that, an anterior and MCV was noted, but no significant other branches were seen to accomodate the lead. The take off of this was very close to the Cs os. I used a 90 degree inner cannula and selectively cannulated the target vessel. After this, a S shaped quadripolar lead was advanced over 0.014 wire was passed and traversed into the lateral vein. At this stage, given that we had at good threshold with at least 2 configurations, I decided to keep the lead. The outer sheath was slit and the lead secured with three 1-0 silk sutures. Following this, the BiV pacing was performed, on which the QRS configuration was noted to be approximately 124 msec duration, which we felt was a good result. Subsequent to this, I decided to proceed with extraction of the previously placed lead. The RV lead was then dissected out and the sutures were removed and the sleeve was then released. Stylet was passed and the helix was retracted, and with mechanical traction, the lead was removed. Hemostatic sutures were placed to prevent back bleed. Following which, the pocket was revised for an ICD as the prior pocket was submuscular. Pocket hemostasis was secured and it was then copiously and vigorously irrigated with antibiotic solution. The leads were wrapped under the device and the device was placed in the pocket and the device tacked to the underlying capsule as well as muscle. The pocket was closed in layers: subcutaneous layer using 2-0 Vicryl and skin using 3-0 Monocryl. Occlusive dressing was placed on top. Lead parameters were then rechecked through the device as noted below. The patient was returned to the short stay room for post procedural observation. No immediate procedural complications were noted. POST PROCEDURE EXAM: Patient was hemodynamically stable. COMPLICATIONS: None. IM (more content not included)...[facility]11-14-2023 NotePatient: Lani Lizama Procedure Information Date/Time: 02/12/23 1100 Procedure: Biventricular ICD upgrade - Upgrade PPM to Bi-V- possibly to AICD Location: [facility] PRODUCTION RECORDER 1 / [facility] (Cath) Providers: Kevin Arteaga MD Clinical information reviewed: Allergies Meds Physical Exam Airway Mallampati: III Cardiovascular - normal exam Dental Pulmonary - normal exam Abdominal - normal exam Anesthesia Plan ASA 3 other (Conscious sedation) Anesthetic plan and risks discussed with patient. Use of blood products discussed with patient who consented to blood products. Plan discussed with attending. [facility]* Encounter Date Diagnosis Assessment Notes Treatment Notes Treatment Clinical Notes Jan, Chronic HFrEF (heart failure with reduced ejection fraction) (ICD-10 - I50.22) Interleukin Genetics Other 11-03-2023 NoteUT Cardiology Consult Note Reason for visit: Complete heart block on event monitor, HFrEF 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% 02/01/23: Patient is here for hospital follow up s/p NSTEMI He had cardiac cath 01/25/23 which should 4/4 patent bypass grafts, sluggish arterial flow, antiplatelet and OAC recommended He was found to have reduced ef of 10, NICM likely related to 100% RV pacing as he had PPM implant for AV block 03/21/22 and prior to PPM his EF was 45-50% per TTE 03/12/22 and MUGA scan 03/2022 EF 53% He was discharged on HFrEF GDMT but was not given any prescriptions and therefore has not changed his home medication regimen He has been feeling well without complaints of SOB, [place], LE edema, orthopnea. He had chest pain once and took nitroglycerin which provided relief. He was suppose to have his imdur dose increased but again no RX given He is planned for ICD BiV upgrade but this has been delayed on multiple occasions unfortunately due to scheduling conflicts with EP lab Accompanied by Son 04/2022 HPI: Lani Lizama is a 72 y.o. year old with past medical history of CAD s/p CABG, PVD, DM2 and hypertension. He was recently admitted to [facility] for NSTEMI. Had inpatient stress test and heart cath. Denies SOB but still having chest pain and has taken nitroglycerin a few times for relief. Had CT chest last week s/p discharge. Cardiac catheterization revealed patent bypass grafts and worsening [place] ira vessel disease. Medications were adjusted. I had a conversation with his son also who mentions pt having bradycardia for ~1-2 months where HR was in 40's. It is unclear as to why he got the event monitor but this revealed presence of high degree AV block on 03/19/22 @9pm. Pt did not report syncope but state fatigue. He is on BB which he needs for CAD and Ischemic CMP. PMH: Past Medical History: Diagnosis Date Carotid artery stenosis Coronary artery disease Diabetes mellitus (CMS/HCC) Hyperlipidemia Hypertension PVD (peripheral vascular disease) (CMS/HCC) Third degree heart block (CMS/HCC) PSH: Past Surgical History: Procedure Laterality Date CARDIAC CATHETERIZATION 07/12/2020 CARDIAC CATHETERIZATION 10/15/2018 CARDIAC CATHETERIZATION 02/24/2018 CARDIAC CATHETERIZATION 09/27/2015 CORONARY ARTERY BYPASS GRAFT CORONARY STENT PLACEMENT SH: Social Determinants of Health Tobacco Use: Medium Risk (02/01/2023) Patient History Smoking Tobacco Use: Former Smokeless Tobacco Use: Never Passive Exposure: Not on file Alcohol Use: Not on file Financial Resource Strain: Low Risk (01/25/2023) Overall Financial Resource Strain (CARDIA) Difficulty of Paying Living Expenses: Not hard at all Food Insecurity: Unknown (01/25/2023) Hunger Vital Sign Worried About Running Out of Food in the Last Year: Never true Ran Out of Food in the Last Year: Not on file Transportation Needs: Unknown (01/25/2023) PRAPARE - Transportation Lack of Transportation (Medical): No Lack of Transportation (Non-Medical): Not on file Physical Activity: Not on file Stress: Not on file Social Connections: Not on file Intimate Partner Violence: Unknown (01/25/2023) Humiliation, Afraid, Rape, and Kick questionnaire Fear of Current or Ex-Partner: No Emotionally Abused: Not on file Physically Abused: Not on file Sexually Abused: Not on file Depression: Not on file Housing Stability: Unknown (01/25/2023) Housing Stability Vital Sign Unable to Pay for Housing in the Last Year: Not on file Number of Places Lived in the Last Year: Not on file Unstable Housing in the Last Year: No Allergies: No Known Allergies Weight: No results found for: PTWEIGHT Meds: Current Outpatient Medications on File Prior to Visit Medication Sig Dispense Refill ALPRAZolam (Xanax) 0.5 mg tablet Take 1 tablet by mouth in the morning, afternoon, and at bedtime. aspirin 81 mg chewable tablet Chew 1 tablet every day by oral route. bumetanide (Bumex) 0.5 mg tablet Take 1 tablet (0.5 mg) by mouth in the morning. 90 tablet 3 carvedilol (Coreg) 12.5 mg tablet Take 1 tablet (12.5 mg) by mouth with breakfast and with evening meal. 180 tablet 3 cholecalciferol, vitamin D3, (VITAMIN D3 ORAL) Take by mouth in the morning. clopidogrel (Plavix) 75 mg tablet Take 1 tablet by mouth in the morning. dapagliflozin propanediol (Farxiga) 10 mg Take 1 tablet (10 mg) by mouth in the morning. 90 tablet 3 docusate sodium (Colace) 100 mg capsule Take 100 mg by mouth in the morning. empagliflozin (Jardiance) 10 mg Take 1 tablet every day by oral route. insulin aspart (NovoLOG) 100 unit/mL injection Inject under the skin 1 (one) time. insulin detemir (Levemir) 100 unit/mL injection Inject under the skin in the morning and at bedtime. insulin lispro (HumaLOG U-100 Insulin) 100 unit/mL injection Inject under the skin with breakfast, with lunch, and with evening meal. isosorbide mononitrate ER (Imdur) 60 mg 24 hr tablet Take 1 tablet (more content not included)...[facility]10-30-2023 NoteOccupational Therapy Occupational Therapy Evaluation Patient Name: Lani Lizama : 1950 Today's Date: 01/28/2023 Time In: 1404 Time Out: 1444 Lani Lizama is a 72 y.o. male with Hx CAD s/p 4v CABG and multiple past stents to VG to OM branch. Last LHC 01/20 at [facility] found patent bypass grafts. 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 Hme meds: ASA, Plavix, Coreg, Jardiance, Imdur 30, Lisinopril 2.5, Lovasatatin 40mg, protonix. Pt and son do not recall any other statins or reaction to statins. 01/25/23 transferred from [facility] for 2 months of worsening CP with rising troponin HSTROP 7000, TropI 1.75. Echo found new drop in EF to 10% (previously 50%) with diffuse global hypokinesis. Had RHC found normal pressures with reduced CO and CI and uncontrolled HTN; LHC found patent 4/4 patent bypasses with sluggish flow in coronary arterial tree recommending OAC. NICM could be r/t high burden RV pacing and will refer to EP for upgrade to BiV ICD. Assessment: NSTEMI- resolved s/p Cath CAD s/p CABG with MENJIVAR to LAD SVG to first diagonal, SVG to OM --01/25/23 NSTEMI: [facility] 01/25: stable CAD (4/4 bypass grafts patent) with mod-severe disease right after the VG to Diagonal anastomosis but not appropriate for intervention; with uncontrolled HTN, NL pressures. NICM, sluggish arterial flow rec OAC Acute on Chronic- compensated- Systolic HRrEF New drop 10% per TTE , was 53% by MUGA 03/2022. NYHA IIIB with contribution from deconditioning and COPD --Hx HFrEF with EF 30% by nuc MPS 12/2018, with recovery as of 04/2020 TTE , NICM, likely r/t high RV pacing, General Subjective: friendly and cooperative, reports indep in room without issue s Patient Active Problem List Diagnosis Coronary atherosclerosis Type 1 diabetes mellitus (CMS/HCC) Essential hypertension Gastroesophageal reflux disease History of coronary artery bypass surgery Increased immunoglobulin Irritable bowel syndrome Mixed hyperlipidemia Monoclonal gammopathy Nausea Overweight with body mass index (BMI) 25.0-29.9 Right lower quadrant abdominal pain Spondylosis of lumbar spine Stage 3 chronic kidney disease ([facility]) Stenosis of abdominal aorta Type 2 diabetes mellitus without complication ([facility]) AV block, 3rd degree ([facility]) Age-related nuclear cataract of both eyes Blepharitis of upper and lower eyelids of both eyes Dry eyes 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 edema associated with type 1 diabetes mellitus ([facility]) NSTEMI (non-ST elevated myocardial infarction) ([facility]) Acute on chronic systolic heart failure, NYHA class 3 ([facility]) Reduced ejection fraction concurrent with and due to acute heart failure ([facility]) Past Medical History: Diagnosis Date Carotid artery stenosis Coronary artery disease Diabetes mellitus ([facility]) Hyperlipidemia Hypertension PVD (peripheral vascular disease) ([facility]) Third degree heart block ([facility]) Past Surgical History: Procedure Laterality Date CARDIAC CATHETERIZATION 07/12/2020 CARDIAC CATHETERIZATION 10/15/2018 CARDIAC CATHETERIZATION 02/24/2018 CARDIAC CATHETERIZATION 09/27/2015 CORONARY ARTERY BYPASS GRAFT CORONARY STENT PLACEMENT Precautions Precautions Medical Precautions: (planned pacer possible as outpatient) Pain Pain Assessment Pain Score: 0 - No pain Cognition Cognition Overall Cognitive Status: Within Functional Limits General Assessment General Assessment Hearing: (wfl) Hand Dominance: Right Home Living Home Living Type of Home: Apartment Lives With: Alone Home Adaptive Equipment: (gb in shower) Home Layout: One level Bathroom Shower/Tub: Tub/shower unit Prior Level of Function Prior Function Level of Picher: Independent with ADLs and functional transfers, Independent with homemaking 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 , 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) Prior IADLs IADL History Homemaking Responsibilities: Yes Dynamic Standing Balance Dynamic Standing Balance Dynamic Standing Balance-Level of Assistance: Independent ADL ADL UE Dressing Assistance: Independent (adls indep assuming simulated pacer precautions) LE Dressing Assistance: Independent Transfers Transfers Transfer: (indep bed mod , indep dynamic stand bal, reports indep in hallway +300 feet without issues) Objective General Assessments Activity Tolerance Endurance: Stage III Vision - Basic Assessment Current Vision: No visual deficits Sensation Light Touch: No apparent deficits Coordination Movements are Fluid and Coordinated: Yes Extremity Assessments RUE Assessment RUE Assessment: (reports BUE baseline with chronic left shoulder injury 90 degrees flex / formal MMT deferred) Outcome Assessments AM-PAC 6 Clicks Putting on and taking off regular lo (more content not included)...[facility]10-30-2023 NoteHospital Medicine Discharge Summary Final Discharge Diagnosis: NSTEMI (non-ST elevated myocardial infarction) (CMS/HCC) Non-ischemic cardiomyopathy with EF 10% Admission Diagnosis: NSTEMI (non-ST elevated myocardial infarction) (CMS/HCC) [I21.4] Hospital course: And admitted to the hospital on 01/25 as a direct transfer from [facility], With worsening chest pain for the last 2 months. He went to the ER and his troponins were positive he was transferred to us for further management. The patient had coronary angiography and December 2021 showed patent LAD/MENJIVAR graft, patent SVG to OM and PDA and most recent echo showed LVEF 45 to 50%. the patient is known to have coronary artery disease s/p CABG and multiple PCI in the past He was taken to cardiac cath on 01/25 : Coronary angiogram shows stable coronary artery disease with patent 4 out of 4 bypass grafts. Normal left filling pressures. Normal right filling pressures. no pulmonary hypertension. Reduced cardiac output and cardiac index. Uncontrolled systemic hypertension. Findings are consistent with non-ischemic cardiomyopathy ( EF 10%) Given the severely reduced ejection fraction and sluggish flow in the coronary arterial tree it is recommended to add anticoagulation therapy to this patient's regimen. 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 It is recommended to consult with electrophysiology service regarding upgrade of his dual-chamber pacemaker to a biventricular ICD device. Patient to be discharge home today with juan c Andrews and to return coming for upgrade to BiV/ICD Dear Dr. Cherie MD, Lani is advised to follow up with you within 1-2 weeks. Follow-up with: Cardiology Scheduled appointments: Future Appointments Date Time Provider Department Center 02/01/2023 9:15 AM Laila Duarte NP [facility] 03/07/2023 9:00 AM Pinky Bishop MD [facility] Your medication list START taking these medications Instructions Last Dose Given Next Dose Due dapagliflozin propanediol 10 mg Commonly known as: Farxiga Take 1 tablet (10 mg) by mouth in the morning. metoprolol succinate XL 50 mg 24 hr tablet Commonly known as: Toprol-XL Take 1 tablet (50 mg) by mouth in the morning. Do not crush or chew. nitroglycerin 0.4 mg SL tablet Commonly known as: Nitrostat PLACE 1 TABLET UNDER TONGUE EVERY 5 MINS, UP TO 3 DOSES NEEDED FOR CHEST PAIN rosuvastatin 40 mg tablet Commonly known as: Crestor Take 1 tablet (40 mg) by mouth at bedtime. sacubitril-valsartan 24-26 mg tablet Commonly known as: Entresto Take 1 tablet by mouth in the morning and at bedtime. CHANGE how you take these medications Instructions Last Dose Given Next Dose Due isosorbide mononitrate ER 60 mg 24 hr tablet Commonly known as: Imdur What changed: how much to take additional instructions Take 1 tablet (60 mg) by mouth in the morning. Do not crush or chew. lisinopril 2.5 mg tablet What changed: when to take this Take 1 tablet (2.5 mg) by mouth in the morning. CONTINUE taking these medications Instructions Last Dose Given Next Dose Due ALPRAZolam 0.5 mg tablet Commonly known as: Xanax aspirin 81 mg chewable tablet bumetanide 0.5 mg tablet Commonly known as: Bumex Take 1 tablet (0.5 mg) by mouth in the morning. carvedilol 12.5 mg tablet Commonly known as: Coreg Take 1 tablet (12.5 mg) by mouth with breakfast and with evening meal. clopidogrel 75 mg tablet Commonly known as: Plavix docusate sodium 100 mg capsule Commonly known as: Colace empagliflozin 10 mg Commonly known as: Jardiance HumaLOG U-100 Insulin 100 unit/mL injection Generic drug: insulin lispro insulin aspart 100 unit/mL injection Commonly known as: NovoLOG insulin detemir 100 unit/mL injection Commonly known as: Levemir lovastatin 40 mg tablet Commonly known as: Mevacor multivitamin capsule pantoprazole 40 mg EC tablet Commonly known as: ProtoNix potassium chloride CR 10 mEq ER tablet Commonly known as: Klor-Con Take 1 tablet (10 mEq) by mouth in the morning. VITAMIN D3 ORAL Where to Get Your Medications These medications were sent to [facility] - [place], [place] - [address] [place] [address] [place] [address], [facility] [address] dapagliflozin propanediol 10 mg isosorbide mononitrate ER 60 mg 24 hr tablet metoprolol succinate XL 50 mg 24 hr tablet rosuvastatin 40 mg tablet sacubitril-valsartan 24-26 mg tablet Lani has No Known Allergies. Disposition: Home or Self Care Discharge Condition: Stable Code Status: Full Code Diagnostic Results Hematology: Results from last 7 days Lab Units 01/28/23 0533 01/26/23 0530 WBC AUTO 10*3/uL 6.40 8.72 HEMOGLOBIN g/dL 13.2 14.4 HEMATOCRIT % 39.0 42.0 MCV fL 91.8 90.3 PLATELETS AUTO 10*3/uL 141* 163 Chemistry: (more content not included)...[facility]10-30-[address] Arteaga is planning upgrade to BI-V ICD on as [facility]ptUn[facility]-2023 NoteUTP CARDIOLOGY INPATIENT PROGRESS NOTE Reason for follow up: NSTEMI, new HFrEF 10%, Angina Subjective Assessed at bedside, pt ambulates in the room without incident. Admits mild mid sternal chest pain this morning that lasted only a couple seconds and resolved. Denied shortness of breath, orthopnea or palpitations. Tele: V-paced in s ALLERGIES No Known Allergies CURRENT MEDS ALPRAZolam, 0.5 mg, oral, TID aspirin, 81 mg, oral, Daily with breakfast cetirizine, 10 mg, oral, Daily clopidogrel, 75 mg, oral, Daily dapagliflozin propanediol, 10 mg, oral, Daily docusate sodium, 100 mg, oral, Daily insulin aspart, 0-20 Units, subcutaneous, q6h insulin detemir, 5 Units, subcutaneous, BID isosorbide mononitrate ER, 60 mg, oral, Daily metoprolol succinate XL, 50 mg, oral, Daily pantoprazole, 40 mg, oral, Daily rosuvastatin, 40 mg, oral, Nightly sacubitril-valsartan, 1 tablet, oral, BID heparin, 0-28 Units/kg/hr, Last Rate: 15 Units/kg/hr (01/28/23 0744) sodium chloride, 50 mL/hr, Last Rate: Stopped (01/25/23 1900) sodium chloride, 50 mL/hr, Last Rate: 50 mL/hr (01/26/23 0427) PRN medications: acetaminophen, ALPRAZolam, glucose OR dextrose 50 % in water (D50W), melatonin, nitroglycerin Objective Patient Vitals for the past 24 hrs: BP Temp Temp src Pulse Resp SpO2 Weight 01/28/23 1150 (!) 141/92 -- -- 100 24 94 % -- 01/28/23 1130 (!) 147/92 -- -- 102 23 98 % -- 01/28/23 1100 140/89 -- -- 98 23 95 % -- 01/28/23 0813 126/80 36.3 ???C (97.4 ???F) Oral 90 18 -- -- 01/28/23 0631 -- -- -- -- -- -- 81.2 kg (179 lb 0.2 oz) 01/28/23 0630 134/83 -- -- 93 18 98 % -- 01/28/23 0000 121/81 -- -- 92 17 97 % -- 01/27/23 2055 120/74 -- -- 80 17 98 % -- 01/27/23 1600 140/83 36.5 ???C (97.7 ???F) Temporal 86 16 98 % -- BP (!) 141/92 (BP Location: Left arm, Patient Position: Lying) Pulse 100 Temp 36.3 ???C (97.4 ???F) (Oral) Resp 24 Ht 1.702 m (5' 7 ) Wt 81.2 kg (179 lb 0.2 oz) SpO2 94% BMI 28.04 kg/m??? Wt Readings from Last 3 Encounters: 01/28/23 81.2 kg (179 lb 0.2 oz) 01/17/23 78.5 kg (173 lb) 10/09/22 76.7 kg (169 lb) General: Awake, alert, appropriate mood / affect, NAD Eyes: anicteric sclera. Non-injected conjunctiva. No xanthelasmas Neck: No elevated JVP. No carotid bruit Pulm: Breath sounds clear to ascultation bilaterally with no wheeze, crackles or rhonchi Cards: HRRR, NL S1, S2. No S3 or S4 gallop. Murmur: none Abd: Soft, Nontender, physiologic bowel sounds are present Extr: Lower extremity edema: none. Radial, DP pulses 3+ palpable bilaterally, rt radial site C/D/I without bruit, hematoma or ecchymosis. Skin: warm, dry, well perfused Neuro: A&Ox3, No gross deficits Lab Results Component Value Date NA 140 01/28/2023 K 4.0 01/28/2023 CL 110 (H) 01/28/2023 ANIONGAP 10 01/28/2023 BUN 23 01/28/2023 CREATININE 1.46 (H) 01/28/2023 CALCIUM 9.1 01/28/2023 MG 2.0 10/15/2018 Lab Results Component Value Date BILITOT 0.7 03/21/2022 BILIDIR 0.2 03/21/2022 ALKPHOS 106 (H) 03/21/2022 AST 18 03/21/2022 ALT 21 03/21/2022 PROT 7.2 03/21/2022 ALBUMIN 4.2 03/21/2022 Lab Results Component Value Date CHOLESTEROL 111 (L) 01/28/2023 TRIGLYCERIDES 172 (H) 01/28/2023 HDL 30 01/28/2023 LDL CALC 47 01/28/2023 Lab Results Component Value Date BNP 579 (H) 01/25/2023 Lab Results Component Value Date WBC 6.40 01/28/2023 RBC 4.25 01/28/2023 HGB 13.2 01/28/2023 HCT 39.0 01/28/2023 MCV 91.8 01/28/2023 MCH 31.1 01/28/2023 MCHC 33.8 01/28/2023 RDW 13.2 01/28/2023 LYMPHOPCT 30.1 10/15/2018 EOSPCT 3.9 10/15/2018 EOSABS 0.3 10/15/2018 BASOSABS 0.1 10/15/2018 PLT 141 (L) 01/28/2023 NRBC 0 10/15/2018 No X-ray results found for the past 24 hours CV Testin01/25/23 TTE ECHO: Left Ventricle: The left ventricle is normal size. Global left ventricular systolic function is severely reduced. The EF is 10 % visually. Left ventricular wall thickness is increased. Diffuse global hypokinesis. Right Ventricle: The right ventricle is normal in size. Normal right ventricular systolic function. Unable to assess right sided pressures due to lack of measurable tricuspid regurgitation. Left Atrium: The left atrium is normal in size. Overall Conclusions: Due to suboptimal imaging Lumason contrast was administered for opacification and better delineation of endocardial borders. 01/25/23 RHC and LHC: Hemodynamic Data: RA: 4 RV: 29/-7, -1 PA: 39/5 (21) PCWP: 9 CO: 3.96 CI: 2.09 O2 Sat: PA sat: 60%, AO sat: 90% AO: 147/78 (106) Coronary angiography: This is a right dominant circulation. Left Main: This arises from the left coronary cusp. It bifurcates into left anterior descending and circumflex vessels. The left main has severe ostial stenosis. It is a very short vessel. Left anterior descending: It is occluded in its proximal segment. The mid to distal LAD is seen filling via a patent MENJIVAR graft. There is (more content not included)...[facility]10-29-2023 NoteHospital Medicine Daily Progress Note - 01/27/2023 12:00 PM; Room: [address] [place] [address] Admission: 01/25/2023 12:05 PM; Length of stay: 2 days THE HOSPITALIST TEAM PREFERS TO USE [employer] FOR COMMUNICATION 7AM-7PM. IF I DO NOT RESPOND WITHIN 15 MINUTES, PLEASE PAGE ME/CALL THROUGH THE REPAIR WELDER. FROM 7PM-7AM, PLEASE PAGE [phone](COVR) Code Status: Full Code Discharge Destination: home Discharge planning: Pending final Cardiology/EP workup Overview Patient is seen for evaluation and management of NSTEMI. Subjective Seen today in his room, alert and denies any significant chest pain Physical Exam Constitutional: Appearance: Normal appearance. HENT: Head: Normocephalic. Mouth/Throat: Mouth: Mucous membranes are moist. Eyes: Pupils: Pupils are equal, round, and reactive to light. Cardiovascular: Rate and Rhythm: Normal rate. Pulmonary: Effort: Pulmonary effort is normal. Abdominal: General: Abdomen is flat. Musculoskeletal: General: Normal range of motion. Neurological: General: No focal deficit present. Mental Status: He is alert. Psychiatric: Mood and Affect: Mood normal Visit Vitals BP 134/90 (BP Location: Left arm, Patient Position: Lying) Pulse 98 Temp 36.5 ???C (97.7 ???F) (Temporal) Resp 23 Intake/Output Summary (Last 24 hours) at 01/27/2023 1200 Last data filed at 01/27/2023 1044 Gross per 24 hour Intake 1375 ml Output -- Net 1375 ml Estimated body mass index is 26.56 kg/m??? as calculated from the following: Height as of this encounter: 1.702 m (5' 7 ). Weight as of this encounter: 76.9 kg (169 lb 9.6 oz). Active Inpatient Problems Principal Problem: NSTEMI (non-ST elevated myocardial infarction) ([facility]) Assessment and Plan NSTEMI coronary artery disease status post CABG with MENJIVAR to LAD SVG to first diagonal, SVG to OM Peripheral artery disease Dyslipidemia chronic systolic heart failure CKD-III DM-II COPD Anxiety BPH Cardiac cath done on 01/25 : Coronary angiogram shows stable coronary artery disease with patent 4 out of 4 bypass grafts. Normal left filling pressures. Normal right filling pressures. EF =10 % no pulmonary hypertension. Reduced cardiac output and cardiac index. Uncontrolled systemic hypertension. Findings are consistent with non-ischemic cardiomyopathy. Plan: Given the severely reduced ejection fraction and sluggish flow in the coronary arterial tree it is recommended to add anticoagulation therapy to this patient's regimen. 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 It is recommended to consult with electrophysiology service regarding upgrade of his dual-chamber pacemaker to a biventricular ICD device. Continue Heparin drip. EP for BiV/ICD Continue rest of home meds Scheduled Meds ALPRAZolam, 0.5 mg, oral, TID aspirin, 81 mg, oral, Daily with breakfast cetirizine, 10 mg, oral, Daily clopidogrel, 75 mg, oral, Daily docusate sodium, 100 mg, oral, Daily insulin aspart, 0-20 Units, subcutaneous, q6h insulin detemir, 5 Units, subcutaneous, BID [START ON 01/28/2023] isosorbide mononitrate ER, 60 mg, oral, Daily metoprolol succinate XL, 50 mg, oral, Daily pantoprazole, 40 mg, oral, Daily rosuvastatin, 40 mg, oral, Nightly heparin, 0-28 Units/kg/hr, Last Rate: 15 Units/kg/hr (01/27/23 0650) sodium chloride, 50 mL/hr, Last Rate: Stopped (01/25/23 1900) sodium chloride, 50 mL/hr, Last Rate: 50 mL/hr (01/26/23 0427) Pertinent Investigations Hematology: Results from last 7 days Lab Units 01/26/23 0530 01/25/23 1249 WBC AUTO 10*3/uL 8.72 8.91 HEMOGLOBIN g/dL 14.4 15.6 HEMATOCRIT % 42.0 46.3 MCV fL 90.3 91.1 PLATELETS AUTO 10*3/uL 163 185 183 Chemistry: Results from last 7 days Lab Units 01/27/23 0542 01/26/23 0530 01/25/23 1753 SODIUM mmol/L 141 138 140 POTASSIUM mmol/L 4.1 4.2 4.7 CHLORIDE mmol/L 106 107 103 CO2 mmol/L 26 22 27 BUN mg/dL 31* 27* 28* CREATININE mg/dL 1.71* 1.77* 1.83* GLUCOSE mg/dL 155* 125* 168* CALCIUM mg/dL 9.4 9.1 9.6 No lab exists for component: AFIO2, APHT, APCOT, APOT, ATCO2, CK, ALB, IBILI Results from last 7 days Lab Units 01/27/23 0507 01/26/23 2243 01/26/23 1750 01/26/23 0507 01/25/23 2343 01/25/23 1835 POCT GLUCOSE mg/dL 145* 195* 155* 120* 155* 211* Historical Values: (Includes values prior to this admission) No results found for: PREALBUMIN, TSH, T3FREE, FREET4, CORTISOL, FEV1, FPP2RGQ, DLCO, RVSP, HDL, LDL No results found for: [id number], IRON, TIBC, C3, C4, HARISH, CANCA, ASO, PSA, CEA, CA125, CA199, AFP, CA153 Imaging Cardiac catheterization PROCEDURE PHYSICIAN: Petar Foreman MD . Indications: Lani Lizama is a 72 y.o. male with prior complex cardiac history including bypass surgery and multiple stenting procedures in the past. Last cardiac catheterization in December 2021 at an outside institution showed patent bypass grafts. (more content not included)... [facility]10-29-2023 NoteUTP CARDIOLOGY INPATIENT PROGRESS NOTE Reason for follow up: NSTEMI, new HFrEF 10%, Angina Subjective Awake, good spirits, son who is ICU nurse at bedside. Had 2 episodes of his index angina earlier this morning while at rest: (chest heaviness across lt and right of upper chest) with mild SOB, promptly relieved by 1 SL NTG each episode. Has ambulated in room w/o symptoms. Reviewed findings to date, goals of HF therapy including device change, meds, rehab, time, diet and habits. He seems to have good home diet/fluid habits. Med changes also reviewed. Tele: V-paced in ALLERGIES No Known Allergies CURRENT MEDS ALPRAZolam, 0.5 mg, oral, TID aspirin, 81 mg, oral, Daily with breakfast cetirizine, 10 mg, oral, Daily clopidogrel, 75 mg, oral, Daily docusate sodium, 100 mg, oral, Daily insulin aspart, 0-20 Units, subcutaneous, q6h insulin detemir, 5 Units, subcutaneous, BID [START ON 01/28/2023] isosorbide mononitrate ER, 60 mg, oral, Daily metoprolol succinate XL, 50 mg, oral, Daily pantoprazole, 40 mg, oral, Daily rosuvastatin, 40 mg, oral, Nightly heparin, 0-28 Units/kg/hr, Last Rate: 15 Units/kg/hr (01/27/23 0650) sodium chloride, 50 mL/hr, Last Rate: Stopped (01/25/23 1900) sodium chloride, 50 mL/hr, Last Rate: 50 mL/hr (01/26/23 0427) PRN medications: acetaminophen, ALPRAZolam, glucose OR dextrose 50 % in water (D50W), melatonin, nitroglycerin Objective Patient Vitals for the past 24 hrs: BP Temp Temp src Pulse Resp SpO2 Weight 01/27/23 1135 134/90 36.5 ???C (97.7 ???F) Temporal 98 23 99 % -- 01/27/23 0712 129/83 36.5 ???C (97.7 ???F) Temporal 95 19 99 % -- 01/27/23 0600 -- -- -- -- -- -- 76.9 kg (169 lb 9.6 oz) 01/27/23 0512 118/74 -- -- 89 17 97 % -- 01/26/23 2323 114/58 -- -- 90 22 98 % -- 01/26/23 1928 115/67 -- -- -- 18 100 % -- 01/26/23 1630 124/64 36.5 ???C (97.7 ???F) Temporal 92 16 97 % -- BP 134/90 (BP Location: Left arm, Patient Position: Lying) Pulse 98 Temp 36.5 ???C (97.7 ???F) (Temporal) Resp 23 Ht 1.702 m (5' 7 ) Wt 76.9 kg (169 lb 9.6 oz) SpO2 99% BMI 26.56 kg/m??? Wt Readings from Last 3 Encounters: 01/27/23 76.9 kg (169 lb 9.6 oz) 01/17/23 78.5 kg (173 lb) 10/09/22 76.7 kg (169 lb) General: Awake, alert, appropriate mood / affect, NAD Eyes: anicteric sclera. Non-injected conjunctiva. No xanthelasmas Neck: No elevated JVP. No carotid bruit Pulm: Breath sounds clear to ascultation bilaterally with no wheeze, crackles or rhonchi Cards: HRRR, NL S1, S2. No S3 or S4 gallop. Murmur: none Abd: Soft, Nontender, physiologic bowel sounds are present Extr: Lower extremity edema: none. DP pulses present bilaterally Skin: warm, dry, well perfused Neuro: A&Ox3, No gross deficits Lab Results Component Value Date NA 141 01/27/2023 K 4.1 01/27/2023 CL 106 01/27/2023 ANIONGAP 13 01/27/2023 BUN 31 (H) 01/27/2023 CREATININE 1.71 (H) 01/27/2023 CALCIUM 9.4 01/27/2023 MG 2.0 10/15/2018 Lab Results Component Value Date BILITOT 0.7 03/21/2022 BILIDIR 0.2 03/21/2022 ALKPHOS 106 (H) 03/21/2022 AST 18 03/21/2022 ALT 21 03/21/2022 PROT 7.2 03/21/2022 ALBUMIN 4.2 03/21/2022 No results found for: CHOLESTEROL, CHOLESTEROL, CHOLESTEROL, CHOLESTEROL TOTAL, TRIGLYCERIDES, TRIGLYCERIDES, TRIGLYCERIDES, HDL, HDL, HDL, LDL CHOLESTEROL, LDL CHOLESTEROL, LDL CHOLESTEROL, LDL DIRECT, LDL CALC Lab Results Component Value Date BNP 579 (H) 01/25/2023 No results found for: THYROID, THYROID, TSH, FREE T4, FREE T4 No results found for: DIGOXIN LVL No results found for: HGBA1C Lab Results Component Value Date WBC 8.72 01/26/2023 RBC 4.65 01/26/2023 HGB 14.4 01/26/2023 HCT 42.0 01/26/2023 MCV 90.3 01/26/2023 MCH 31.0 01/26/2023 MCHC 34.3 01/26/2023 RDW 13.2 01/26/2023 LYMPHOPCT 30.1 10/15/2018 EOSPCT 3.9 10/15/2018 EOSABS 0.3 10/15/2018 BASOSABS 0.1 10/15/2018 PLT 163 01/26/2023 NRBC 0 10/15/2018 No X-ray results found for the past 24 hours CV Testing: Encounter Date: 01/25/23 ECG 12 lead Result Value Ventricular Rate 91 Atrial Rate 91 MD Interval 162 QRS DURATION 180 QT Interval 416 QTC CALCULATION(BAZETT) 511 P [place] 52 R-[place] -41 T Wave [place] 109 Impression Atrial-sensed ventricular-paced rhythm Abnormal ECG When compared with ECG of 21-MAR-2022 13:03, Vent. rate has increased BY 6 BPM Confirmed by Constanza WATERS, L.S. (2) on 01/25/2023 1:36:49 PM 01/25/23 TTE ECHO: Left Ventricle: The left ventricle is normal size. Global left ventricular systolic function is severely reduced. The EF is 10 % visually. Left ventricular wall thickness is increased. Diffuse global hypokinesis. Right Ventricle: The right ventricle is normal in size. Normal right ventricular systolic function. Unable to assess right sided pressures due to lack of measurable tricuspid regurgitation. Left Atrium: The left atrium is normal in size. Overall Conclusions: Due to suboptimal i (more content not included)...[facility]10-28-2023 [facility] Medicine Daily Progress Note - 01/26/2023 12:37 PM; Room: [facility]- Admission: 01/25/2023 12:05 PM; Length of stay: 1 days THE HOSPITALIST TEAM PREFERS TO USE [employer] CHAT FOR COMMUNICATION 7AM-7PM. IF I DO NOT RESPOND WITHIN 15 MINUTES, PLEASE PAGE ME/CALL THROUGH THE REPAIR WELDER. FROM 7PM-7AM, PLEASE PAGE [phone](COVR) Code Status: Full Code Discharge Destination: home Discharge planning: Pending final Cardiology/EP workup Overview Patient is seen for evaluation and management of NSTEMI. Subjective Seen today in his room, alert and denies any significant chest pain Physical Exam Constitutional: Appearance: Normal appearance. HENT: Head: Normocephalic. Mouth/Throat: Mouth: Mucous membranes are moist. Eyes: Pupils: Pupils are equal, round, and reactive to light. Cardiovascular: Rate and Rhythm: Normal rate. Pulmonary: Effort: Pulmonary effort is normal. Abdominal: General: Abdomen is flat. Musculoskeletal: General: Normal range of motion. Neurological: General: No focal deficit present. Mental Status: He is alert. Psychiatric: Mood and Affect: Mood normal Visit Vitals BP 136/79 (BP Location: Left arm, Patient Position: Lying) Pulse 97 Temp 36.1 ???C (97 ???F) (Temporal) Resp 12 Intake/Output Summary (Last 24 hours) at 01/26/2023 1237 Last data filed at 01/26/2023 1019 Gross per 24 hour Intake 1699.26 ml Output 20 ml Net 1679.26 ml Estimated body mass index is 26.19 kg/m??? as calculated from the following: Height as of this encounter: 1.702 m (5' 7 ). Weight as of this encounter: 75.8 kg (167 lb 3.2 oz). Active Inpatient Problems Principal Problem: NSTEMI (non-ST elevated myocardial infarction) ([facility]) Assessment and Plan NSTEMI coronary artery disease status post CABG with MENJIVAR to LAD SVG to first diagonal, SVG to OM. Peripheral artery disease Dyslipidemia chronic systolic heart failure CKD-III DM-II COPD Anxiety BPH Cardiac cath done on 01/25 : Coronary angiogram shows stable coronary artery disease with patent 4 out of 4 bypass grafts. Normal left filling pressures. Normal right filling pressures. no pulmonary hypertension. Reduced cardiac output and cardiac index. Uncontrolled systemic hypertension. Findings are consistent with non-ischemic cardiomyopathy. Plan: Given the severely reduced ejection fraction and sluggish flow in the coronary arterial tree it is recommended to add anticoagulation therapy to this patient's regimen. 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 It is recommended to consult with electrophysiology service regarding upgrade of his dual-chamber pacemaker to a biventricular ICD device. Continue GDMT and will discuss with cardiology Creatinine stable Continue rest of home meds Scheduled Meds ALPRAZolam, 0.5 mg, oral, TID aspirin, 81 mg, oral, Daily with breakfast carvedilol, 12.5 mg, oral, BID with meals cetirizine, 10 mg, oral, Daily clopidogrel, 75 mg, oral, Daily docusate sodium, 100 mg, oral, Daily insulin aspart, 0-20 Units, subcutaneous, q6h insulin detemir, 5 Units, subcutaneous, BID isosorbide mononitrate ER, 30 mg, oral, Daily lovastatin, 40 mg, oral, q PM pantoprazole, 40 mg, oral, Daily sodium chloride, 50 mL/hr, Last Rate: Stopped (01/25/23 1900) sodium chloride, 50 mL/hr, Last Rate: 50 mL/hr (01/26/23 0427) Pertinent Investigations Hematology: Results from last 7 days Lab Units 01/26/23 0530 01/25/23 1249 WBC AUTO 10*3/uL 8.72 8.91 HEMOGLOBIN g/dL 14.4 15.6 HEMATOCRIT % 42.0 46.3 MCV fL 90.3 91.1 PLATELETS AUTO 10*3/uL 163 185 183 Chemistry: Results from last 7 days Lab Units 01/26/23 0530 01/25/23 1753 SODIUM mmol/L 138 140 POTASSIUM mmol/L 4.2 4.7 CHLORIDE mmol/L 107 103 CO2 mmol/L 22 27 BUN mg/dL 27* 28* CREATININE mg/dL 1.77* 1.83* GLUCOSE mg/dL 125* 168* CALCIUM mg/dL 9.1 9.6 No lab exists for component: AFIO2, APHT, APCOT, APOT, ATCO2, CK, ALB, IBILI Results from last 7 days Lab Units 01/26/23 0507 01/25/23 2343 01/25/23 1835 01/25/23 1350 POCT GLUCOSE mg/dL 120* 155* 211* 143* Historical Values: (Includes values prior to this admission) No results found for: PREALBUMIN, TSH, T3FREE, FREET4, CORTISOL, FEV1, [id number], DLCO, RVSP, HDL, LDL No results found for: [id number], IRON, TIBC, C3, C4, HARISH, CANCA, ASO, PSA, CEA, CA125, CA199, AFP, CA153 Imaging Cardiac catheterization PROCEDURE PHYSICIAN: Petar Foreman MD . Indications: Lani Lizama is a 72 y.o. male with prior complex cardiac history including bypass surgery and multiple stenting procedures in the past. Last cardiac catheterization in December 2021 at an outside institution showed patent bypass grafts. He presented to the [facility] with symptoms of worsening chest pain over the past 2 months. He was admitted and had rising cardiac troponin. He was referred (more content not included)...[facility]10-28-2023 NoteAdult Nutrition Assessment: Name: Lani Lizama Date: 1950 Date of Visit: 01/26/23 Admission Dx: NSTEMI (non-ST elevated myocardial infarction) ([facility]) [I21.4] Reason for assessment: high risk (HF) Information obtained from: patient, medical record, and nursing Past Medical History: Diagnosis Date Carotid artery stenosis Coronary artery disease Diabetes mellitus ([facility]) Hyperlipidemia Hypertension PVD (peripheral vascular disease) ([facility]) Third degree heart block ([facility]) Current Medications: ALPRAZolam, 0.5 mg, oral, TID aspirin, 81 mg, oral, Daily with breakfast carvedilol, 12.5 mg, oral, BID with meals cetirizine, 10 mg, oral, Daily clopidogrel, 75 mg, oral, Daily docusate sodium, 100 mg, oral, Daily insulin aspart, 0-20 Units, subcutaneous, q6h insulin detemir, 5 Units, subcutaneous, BID isosorbide mononitrate ER, 30 mg, oral, Daily lovastatin, 40 mg, oral, q PM pantoprazole, 40 mg, oral, Daily sodium chloride, 50 mL/hr, Last Rate: Stopped (01/25/23 1900) sodium chloride, 50 mL/hr, Last Rate: 50 mL/hr (01/26/23 042) Labs: 0 Lab Value Date/Time POCGLU 120 (H) 01/26/2023 0507 BUN 27 (H) 01/26/2023529 CREATININE 1.77 (H) 01/26/2023529 NA 138 01/26/2023529 K 4.2 01/26/2023529 MG 2.0 10/15/2018 0556 HGB 14.4 01/26/2023529 WBC 8.72 01/26/2023529 Other Pertinent Labs: BNP 579 BG POC 120-211 A1c 6.6% (taken 1.5 months ago per pt report) I/O: Intake/Output Summary (Last 24 hours) at 01/26/2023 1052 Last data filed at 01/26/2023 1019 Gross per 24 hour Intake 1699.26 ml Output 20 ml Net 1679.26 ml Allergies: No Known Allergies Nutrition Problems: -Swallowing Assessment: Denies issues chew/swallow -Mouth: Upper dentures -Abdominal Assessment: Last BM 01/26 -Appetite: Good -Cognition: A/O x4 -Able to feed self and prepare meals without difficulty -Edema: none -Skin: intact Nutrition Data/Clinical Indicators of Nutrition Status: Height: 170.2 cm (5' 7 ) Weight: 75.8 kg (167 lb 3.2 oz) BMI (Calculated): 26.18 Wt change: Per records, wt 10/09 was 76.7 kg and 07/24 was 78.5 kg. Pt denies any recent wt changes. Monitors weight daily at home. IBW: 67.3 kg UBW: 170 lbs Nutrition Assessment: Nutrition history: Lives alone and prepares meals for himself. Avoids frozen meals and canned soups. Adds a little salt to food. Tries to limit added sugars. Uses isma spray when cooking and avoids real butter. Checks BG daily and reports compliance with medications. Has been DM for >25 years and reports previous education for BG management. Current Diet Order: Dietary Orders (From admission, onward) Start Ordered 01/25/23 1637 Regular Diet Diet effective now Question: Room Service? Answer: Yes 01/25/23 1636 Meal Intake: 100% x1 documented meal; observed pt consuming breakfast this AM (omelet) Nutrition Risk: Low Nutrition Education: Diet literature: Heart Healthy Grocery List, Heart Failure Nutrition Therapy Expected compliance/patient understanding: Good Teach back method: Used Time spent: 15 min -Continue with daily wt monitoring -Avoid added Na and limit daily intake to <2000 mg -Choose unsaturated fats and low fat cooking methods -Pt denies need for DM education; reports good control Treatment Plan: -Add cardiac restriction to diet order -Daily wt monitoring -Treat BG medically Goals: Nutrition Goals: intake > 75% meals and compliance w/ MNT Contact the dietitian via [employer] 8A-4P Saturday through Saturday or call extension [phone]. For s & hols, the dietitian can be reached via pager [phone] from 9A-3P. Unable to respond to [employer] messages on Saturday & .[facility]10-28-2023 Note Attestation signed by Marry Avendano MD at 01/30/2023 6:28 PM I personally saw and examined the patient on the same date of service as the fellow. I discussed the findings and therapeutic plan with the fellow. Plan of care was discussed with patient, and patient is agreeable with plan. I agree with the documentation, except for any edits/updates below. Teaching Physician's Revisions: none Marry Avendano MD [facility] Subjective Underwent heart cath yesterday. No overnight events. Patient was seen and examined today. No concerns have been reported. Cr trending down. Objective Patient Vitals for the past 24 hrs: BP Temp Temp src Pulse Resp SpO2 Height Weight 01/26/23 0710 105/76 36 ???C (96.8 ???F) Temporal 97 23 96 % -- -- 01/26/23 0500 -- -- -- -- -- -- -- 75.8 kg (167 lb 3.2 oz) 01/26/23 0400 97/55 -- -- 90 17 93 % -- -- 01/25/23 2357 115/73 -- -- 90 16 97 % -- -- 01/25/23 2300 115/75 -- -- 89 18 96 % -- -- 01/25/23 2200 110/71 -- -- 93 20 96 % -- -- 01/25/23 2100 120/81 -- -- 92 17 99 % -- -- 01/25/231999 103/73 -- -- 99 13 95 % -- -- 01/25/23 1945 106/69 -- -- 94 20 97 % -- -- 01/25/23 1930 102/66 -- -- 95 18 94 % -- -- 01/25/23 1915 109/70 -- -- 98 18 93 % -- -- 01/25/23 1900 100/62 36.4 ???C (97.5 ???F) Temporal 96 20 94 % -- -- 01/25/23 1845 105/68 -- -- 98 19 95 % -- -- 01/25/23 1815 112/69 -- -- 100 15 96 % -- -- 01/25/23 1745 104/72 -- -- 97 19 98 % -- -- 01/25/23 1715 122/73 -- -- 92 16 98 % -- -- 01/25/23 1700 131/78 -- -- 97 15 98 % -- -- 01/25/23 1645 134/76 -- -- 93 19 97 % -- -- 01/25/23 1630 110/82 -- -- 97 11 97 % -- -- 01/25/23 1615 115/78 36 ???C (96.8 ???F) Temporal 93 20 97 % -- -- 01/25/23 1555 -- -- -- 95 16 92 % -- -- 01/25/23 1443 -- -- -- -- -- 96 % -- -- 01/25/23 1443 (!) 154/102 -- -- 106 16 96 % -- -- 01/25/23 1214 138/71 36 ???C (96.8 ???F) Temporal 93 10 98 % -- -- 01/25/23 1200 -- -- -- -- -- -- 1.702 m (5' 7 ) 77.7 kg (171 lb 4.8 oz) Physical Exam Lab Results Component Value Date NA 138 01/26/2023 K 4.2 01/26/2023 CL 107 01/26/2023 ANIONGAP 13 01/26/2023 BUN 27 (H) 01/26/2023 CREATININE 1.77 (H) 01/26/2023 CALCIUM 9.1 01/26/2023 MG 2.0 10/15/2018 Lab Results Component Value Date BILITOT 0.7 03/21/2022 BILIDIR 0.2 03/21/2022 ALKPHOS 106 (H) 03/21/2022 AST 18 03/21/2022 ALT 21 03/21/2022 PROT 7.2 03/21/2022 ALBUMIN 4.2 03/21/2022 Lab Results Component Value Date WBC 8.72 01/26/2023 RBC 4.65 01/26/2023 HGB 14.4 01/26/2023 HCT 42.0 01/26/2023 MCV 90.3 01/26/2023 MCH 31.0 01/26/2023 MCHC 34.3 01/26/2023 RDW 13.2 01/26/2023 LYMPHOPCT 30.1 10/15/2018 EOSPCT 3.9 10/15/2018 EOSABS 0.3 10/15/2018 BASOSABS 0.1 10/15/2018 PLT 163 01/26/2023 NRBC 0 10/15/2018 No results found for this or any previous visit from the past 1 day. Assessment: NSTEMI CAD s/p CABG with MENJIVAR to LAD SVG to first diagonal, SVG to OM HTN HLD HFrEF (EF=10%) Plan: -CORS on 01/25: stable CAD (4/4 bypass grafts patent -continue heparin, statin, beta-jason -continue plavix; discontinue aspirin in 2-3 days -EP consult for BiV/ ICD upgrade -optimize GDMT; consider Entresto -Transition to eliquis on discharge Mickie Plaza MD [employer] [facility]10-27-2023 NotePatient: Lani Lizama Procedure Information Date/Time: 01/25/23 1900 Procedures: Coronary angiography Coronary bypass graft study Location: [facility] RECORDER 3 / [facility] (Cath) Providers: Petar Foreman MD Clinical information reviewed: Allergies Meds Physical Exam Airway Mallampati: II Cardiovascular - normal exam Rate: normal Comments: Paced rhythm Dental Pulmonary - normal exam Abdominal - normal exam Anesthesia Plan ASA 3 other (Conscious sedation) intravenous induction Anesthetic plan and risks discussed with patient. Use of blood products discussed with patient who consented to blood products. Plan discussed with attending. [facility] Note Hospital Medicine History and Physical 01/25/2023 10:53 AM THE HOSPITALIST TEAM PREFERS TO USE [employer] CH[employer] FOR COMMUNICATION 7AM-7PM. IF I DO NOT RESPOND WITHIN 15 MINUTES, PLEASE PAGE ME/CALL THROUGH THE REPAIR WELDER. FROM 7PM-7AM, PLEASE PAGE [phone](COVR) Chief Complaint No chief complaint on file. History of Present Illness Lani Lizama is an 72 y.o. male who came from [facility] with NSTEMI and troponin of 7000. Patient has a history of CABG and 7 stents. For the last few weeks he has had intermittent chest pain that NTG does relieve. He did have a syncopal episode 3 weeks ago. He saw Dr. Bishop on 01/17 and his lisinopril was decreased. Yesterday he had severe chest pain and went to [facility]. Patient was admitted to [facility] and initial troponin was negative but then increased to 7000. Dr. Vargas spoke with Cardiology who agreed to accept patient in transfer for a cardiac catherization. Patient was started on a heparin drip. Patient currently reports he is feeling OK. His family is at bedside. Cardiology did see him while I was in room and plan to proceed with cardiac cath today. Review of System and Physical Exam BP: ()/() Arterial Line BP 1: ()/() Physical Exam Constitutional: Appearance: Normal appearance. HENT: Head: Normocephalic. Mouth/Throat: Mouth: Mucous membranes are moist. Eyes: Pupils: Pupils are equal, round, and reactive to light. Cardiovascular: Rate and Rhythm: Normal rate. Pulmonary: Effort: Pulmonary effort is normal. Abdominal: General: Abdomen is flat. Musculoskeletal: General: Normal range of motion. Neurological: General: No focal deficit present. Mental Status: He is alert. Psychiatric: Mood and Affect: Mood normal. Review of Systems Constitutional: Positive for diaphoresis. HENT: Negative. Eyes: Negative. Respiratory: Negative. Cardiovascular: Positive for chest pain. Gastrointestinal: Negative. Endocrine: Negative. Genitourinary: Negative. Musculoskeletal: Negative. Allergic/Immunologic: Negative. Neurological: Positive for dizziness and syncope. Hematological: Negative. Psychiatric/Behavioral: Negative. Problem List Patient Active Problem List Diagnosis Date Noted Age-related nuclear cataract of both eyes 10/12/2022 Blepharitis of upper and lower eyelids of both eyes 10/12/2022 Dry eyes 10/12/2022 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 edema associated with type 1 diabetes mellitus ([facility]) 10/12/2022 Gastroesophageal reflux disease 03/02/2022 Increased immunoglobulin 03/02/2022 Irritable bowel syndrome 03/02/2022 Mixed hyperlipidemia 03/02/2022 Nausea 03/02/2022 Overweight with body mass index (BMI) 25.0-29.9 03/02/2022 Right lower quadrant abdominal pain 03/02/2022 Spondylosis of lumbar spine 03/02/2022 Stage 3 chronic kidney disease ([facility]) 03/02/2022 Stenosis of abdominal aorta 03/02/2022 History of coronary artery bypass surgery 11/16/2019 Monoclonal gammopathy 07/28/2018 Type 2 diabetes mellitus without complication ([facility]) 06/03/2012 Coronary atherosclerosis 09/19/2011 Type 1 diabetes mellitus ([facility]) 09/19/2011 Essential hypertension 09/19/2011 AV block, 3rd degree ([facility]) 03/21/2022 Assessment and Plan NSTEMI - transfer from [facility] - will continue heparin drip - cardiology has been consulted and plan to proceed with cardiac catherization today Syncope - patient did have his PM interrogated in [facility] Acute renal failure on CKD 3b - in review of chart it looks like his Cr is 1.5 - 1.9 - 2.23 today at [facility] - will gently hydrate 0.9NS @ 50 ml/hr Coronary atherosclerosis - CATH 09/2018 bypass grafts patent; mild ISR CATH 12/2021. 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 We will review available studies and will order additional labs, imaging and other studies as appropriate. As needed medicines are ordered as appropriate. VTE Prophylaxis will be ordered as appropriate. Please see above for management plan for individual hospital problems. Home medications are reviewed and will be continued as appropriate. Patient will be continued to be followed during this hospital stay (more content not included)...[facility]10[facility]19[facility] Chief Complaint: Patient here c/o hypotension and dizziness. Son states he had syncopal episode 2-3 weeks ago. HR's in the 90's. Pacemaker is due to be checked next week. C/o chest pain w/wo exertion. Nitroglycerin has been helping. Denies SOB. HPI: Lani Lizama is a 72 y.o. male presents to clinic for routine f/u for known CAD s/p CABG, PVD, HTN, HPL, DM type 2. He has been experiencing worsening lightheadedness and dizziness. This occurs both with standing and infrequently while sitting. He had 1 episode where he had a syncopal episode that was preceded by significant lightheadedness and dizziness. He feels that he has to steady himself as he moves about. His exertional chest pain is stable if not better since I last saw him. He has atypical, noncardiac chest pain that occurs at rest. He points to the right side of his sternum. This last for seconds to a minute and resolve spontaneously. He has no claudication. He denies rest pain. No orthopnea, no paroxysmal external dyspnea, no lower extremity edema. Cardiology ROS: Review of Systems Cardiovascular: Positive for chest pain. Musculoskeletal: Positive for arthritis, back pain, joint pain and myalgias. Neurological: Positive for light-headedness. All other systems reviewed and are negative. Past Medical History He has a past medical history of Carotid artery stenosis, Coronary artery disease, Diabetes mellitus ([facility]), Hyperlipidemia, Hypertension, PVD (peripheral vascular disease) ([facility]), and Third degree heart block ([facility]). Surgical History He has a past surgical history that includes Cardiac catheterization (07/12/2020); Cardiac catheterization (10/15/2018); Cardiac catheterization (02/24/2018); Cardiac catheterization (09/27/2015); Coronary stent placement; and Coronary artery bypass graft. Social History He reports that he has quit smoking. His smoking use included cigarettes. He has never used smokeless tobacco. He reports that he does not drink alcohol and does not use drugs. Family History Family History Problem Relation Name Age of Onset Heart attack Mother Other (malignant neoplastic disease) Father Other (malignant neoplastic disease) Brother Heart attack Maternal Grandmother Heart attack Maternal Grandfather Allergies Patient has no known allergies. Medications Current Outpatient Medications: ALPRAZolam (Xanax) 0.5 mg tablet, Take 1 tablet by mouth in the morning, afternoon, and at bedtime., Disp: , Rfl: aspirin 81 mg chewable tablet, Chew 1 tablet every day by oral route., Disp: , Rfl: bumetanide (Bumex) 0.5 mg tablet, Take 1 tablet (0.5 mg) by mouth in the morning., Disp: 90 tablet, Rfl: 3 carvedilol (Coreg) 12.5 mg tablet, Take 1 tablet (12.5 mg) by mouth with breakfast and with evening meal., Disp: 180 tablet, Rfl: 3 clopidogrel (Plavix) 75 mg tablet, Take 1 tablet by mouth in the morning., Disp: , Rfl: empagliflozin (Jardiance) 10 mg, Take 1 tablet every day by oral route., Disp: , Rfl: famotidine (Pepcid) 40 mg tablet, Take 40 mg by mouth in the morning., Disp: , Rfl: HYDROcodone-acetaminophen (Metamora) 5-325 mg tablet, TAKE 1 TABLET BY MOUTH EVERY 4 TO 6 HOURS NEEDED FOR PAIN, Disp: , Rfl: insulin aspart (NovoLOG) 100 unit/mL injection, Inject under the skin 1 (one) time., Disp: , Rfl: insulin detemir (Levemir) 100 unit/mL injection, Inject under the skin in the morning and at bedtime., Disp: , Rfl: isosorbide mononitrate ER (Imdur) 60 mg 24 hr tablet, Take 30 tablets by mouth in the morning and at bedtime., Disp: , Rfl: lisinopril 5 mg tablet, Take 1 tablet (5 mg) by mouth in the morning., Disp: 90 tablet, Rfl: 3 lovastatin (Mevacor) 40 mg tablet, in the evening., Disp: , Rfl: multivitamin capsule, Take 1 capsule by mouth in the morning., Disp: , Rfl: nitroglycerin (Nitrostat) 0.4 mg SL tablet, PLACE 1 TABLET UNDER TONGUE EVERY 5 MINS, UP TO 3 DOSES NEEDED FOR CHEST PAIN, Disp: 90 tablet, Rfl: 2 pantoprazole (ProtoNix) 40 mg EC tablet, TAKE 1 TABLET BY MOUTH DAILY ON AN EMPTY STOMACH FOLLOWED BY BREAKFAST 30 MINUTES AFTER, Disp: , Rfl: potassium chloride CR (Klor-Con) 10 mEq ER tablet, Take 1 tablet (10 mEq) by mouth in the morning., Disp: 90 tablet, Rfl: 3 Last Recorded Vitals BP 139/89 (BP Location: Left arm, Patient Position: Sitting) Pulse 96 Ht 1.702 m (5' 7 ) Wt 78.5 kg (173 lb) SpO2 98% BMI 27.10 kg/m??? Physical Examination: GENERAL: alert and oriented x3, well developed, in no acute distress. HEAD: atraumatic, normocephalic. EYES: EFREN, EOMI. NECK: trachea midline, no JVD present, no carotid bruits present. CARDIAC: S1, S2 present. RRR. No murmur, rubs, or gallops. RESPIRATORY: CTAB, no increased effort of breathing, no rales, rhonchi, or wheezing. ABDOMEN: soft, nontender, nondistended. EXTREMITIES: no lower extremity edema, peripheral pulses are 2+ bilaterally. No rash/sk (more content not included)...[facility] 01-07-2023 Evaluation note* Encounter Date Diagnosis Assessment Notes Treatment Notes Treatment Clinical Notes Dec, Chronic renal impairment, stage 3b (ICD-10 - N18.32) He has CKD due to longstanding DM with HTN. . His b/l serum Creatinine is 1.8 mg/dl. His renal ultrasound showed unremarkable kidneys but postvoid urinary bladder volume of 103 mL. I have d/w him the importance of good DM and HTN control to slow down the progression of CKD. Dec, Diabetes mellitus wi th chronic kidney disease (ICD-10 - E11.22) Blood sugars are well controlled. Continue current dose of lisinopril and Jardiance for renal protection. Continue follow-up with diabetic nurse practitioner for DM management. 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 He appears to be euvolemic. Continue current antihypertensive medication. Advised him to monitor blood pressure at home and if stays above 140 over 90 mmHg or below 100 over 60 mmHg then call office. Dec, Secondary hyperparathyroidism (ICD-10 - N25.81) MBD parameters including calcium, phosphorus and vitamin D are within the goal. Continue oral vitamin D. Dec, Dyslipidemia (ICD-10 - E78.5) Continue statins. Monitor LFTs and lipid profile. [facility] Other 10-06-2023 Evaluation note* Encounter Date Diagnosis Assessment Notes Treatment Notes Treatment Clinical Notes Dec, Ground glass opacity present on imaging of lung (ICD-10 - R91.8) CT: RUL, RML - 12/2022Dec, Pulmonary nodule (ICD-10 - R91.1) CT: 7mm RML nodule - 12/2022 [facility] Other 10-03-2023 Evaluation note* Encounter Date Diagnosis Assessment Notes Treatment Notes Treatment Clinical Notes Dec, Stage 3b chronic kidney disease (ICD-10 - N18.32) [facility] Other 10-02-2023 Evaluation note* Encounter Date Diagnosis Assessment Notes Treatment Notes Treatment Clinical Notes Dec, Chronic HFrEF (heart failure with reduced ejection fraction) (ICD-10 - I50.22) Instructed on low salt diet, exercise and daily weights. Instructed to notify office for any unexpected weight gain > 3lbs and/or increased dyspnea, difficulty breathing during sleep, worsening lower extremity swelling, chest pain or lightheadedness. Reviewed GDMT w/ beta blockers, DIONY/ARB/ARNI, MRA and SGLT-2 Dec, Ischemic cardiomyopathy (ICD-10 - I25.5) This patient is stable without activity related CP, dyspnea or lightheadedness. They are instructed to continue exercise and AHA diet plan. Continue secondary prevention measures. Problematic controlling angina w/o adversely affecting his BP/perfusion Dec, Stage 3b chronic kidney disease (ICD-10 - N18.32) The patient is instructed on adequate control of hypertension and diabetes, if appropriate. They are also educated on the associated risks of NSAIDs and PPI use with kidney disease. They were instructed on adequate fluid balance and to avoid dehydration. Dec, Type 2 diabetes mellitus with hyperglycemia (ICD-10 - E11.65) This patient is following a comprehensive diabetic treatment plan. They are checking their feet daily for calluses and nonhealing ulcers. They are being seen for yearly dilated eye examinations. Goals: SBP less than 130, LDL less than 100, FBS less than 140, A1C less than 7%. They are checking their BS daily, will which are reviewed at the office visit. Continue regular routine monitoring of A1C,] Microalbumin, Dilated eye exam and Foot exam Dec, Type 2 diabetes mellitus with diabetic polyneuropathy (ICD-10 - E11.42) Inspect feet daily for cuts and calluses.Recommend diabetic shoes and inserts to prevent callus formation.Fall precautions. Dec, Pulmonary infiltrate (ICD-10 - R91.8) Denies cough, sputum production or hemoptysis Denies [place], orthopnea or increasing edema. Recommend repeat CT chest Dec, HTN (hypertension) (ICD-10 - I10) This patient is instructed to consume a healthy, low-fat, low-salt diet. They are also encouraged to continue exercise to achieve/maintain a normal BMI. Dec, Elevated cholesterol (ICD-10 - E78.00) Instructed on diet and exercise with continued statin therapy.Discussed the beneficial effects of lowering cholesterol in reducing the risk for cerebrovascular and cardiovascular disease. Dec, roasterman current use of insulin (ICD-10 - Z79.4) Dec, Other This patient is stable without activity related CP, dyspnea or lightheadedness. They are instructed to continue exercise and AHA diet plan. Continue secondary prevention measures. BP low normal w/ HR high normal w/ frequent episodes of lightheadedness and several falls. - many medications may be contributing - PM setting may be contributing - must discuss w/ Cardiology [facility] Other 07-11-2023 NoteCardiology Clinic Note Subjective Lani Lizama is a 71 y.o. year old male patient CAD s/p CABG almost 20 years ago, PVD, DM2, CKD, hypertension and HFmrEF seen in follow-up. Patient Active Problem List Diagnosis Coronary atherosclerosis Type 1 diabetes mellitus (CMS/HCC) Essential hypertension Gastroesophageal reflux disease History of coronary artery bypass surgery Increased immunoglobulin Irritable bowel syndrome Mixed hyperlipidemia Monoclonal gammopathy Nausea Overweight with body mass index (BMI) 25.0-29.9 Right lower quadrant abdominal pain Spondylosis of lumbar spine Stage 3 chronic kidney disease (CMS/HCC) Stenosis of abdominal aorta Type 2 diabetes mellitus without complication (CMS/HCC) AV block, 3rd degree (CMS/HCC) Family History Problem Relation Name Age of Onset Heart attack Mother Other (malignant neoplastic disease) Father Other (malignant neoplastic disease) Brother Heart attack Maternal Grandmother Heart attack Maternal Grandfather Social History Tobacco Use Smoking status: Former Types: Cigarettes Smokeless tobacco: Never Substance Use Topics Alcohol use: Never Drug use: Never HPI Lani Lizama is a 71 y.o. year old with past medical history of CAD s/p CABG, PVD, DM2 and hypertension. He was recently admitted to [facility] for NSTEMI. Had inpatient stress test and heart cath. Denies SOB but still having chest pain and has taken nitroglycerin a few times for relief. Had CT chest last week s/p discharge. Cardiac catheterization revealed patent bypass grafts and worsening [place] ira vessel disease. Medications were adjusted. I had a conversation with his son also who mentions pt having bradycardia for ~1-2 months where HR was in 40's. It is unclear as to why he got the event monitor but this revealed presence of high degree AV block on 03/19/22 @9pm. Pt did not report syncope but state fatigue. He is on BB which he needs for CAD and Ischemic CMP. Update 05/02/2022 Was admitted to [facility] in December 2021 for what appears to be a non-ST elevation myocardial infarction. Cardiac catheterization revealed patent bypass grafts and worsening [place] ira vessel disease. Medications were adjusted. He states that he has had no chest pain for the past week. He described what sounded like typical angina with exertion. No orthopnea, no paroxysmal external dyspnea, no lower extremity edema. No claudication. He was admitted to [facility] in March for third-degree heart block and underwent permanent pacemaker placement Has been doing very well since then. Has no cardiovascular symptoms. Was a little concerned that his blood pressure was a little on the low side so stopped lisinopril. Update: 07/24/2022 Has had chest pressure about 3x since March and lightheadedness. Chest pressure occurred at rest and on exertion, and lasted for several minutes. Did not take NTG. Lightheadedness occurs with abrupt standing. Update: 10/09/2022 Still has chest pain about once/week Pain occurs with emotional and physical distress Takes one NTG tab that relieves the pain Imdur and Amlodipine were decreased due to hypotension Denies dyspnea, lower extremity edema or palpitations Review of Systems Cardiovascular: Positive for chest pain. Negative for dyspnea on exertion, irregular heartbeat, leg swelling, near-syncope, orthopnea, palpitations, paroxysmal nocturnal dyspnea and syncope. Neurological: Positive for light-headedness. Objective Visit Vitals BP 112/69 (BP Location: Left arm, Patient Position: Sitting) Pulse 61 Ht 1.702 m (5' 7 ) Wt 76.7 kg (169 lb) SpO2 97% BMI 26.47 kg/m??? Smoking Status Former BSA 1.9 m??? Physical Exam General: Awake, alert, good spirits. NAD Pulm: Breath sounds clear to ascultation bilaterally with no wheeze, crackles or rhonchi Cards: Regular rate and rhythm, S1, S2. No S3 or S4 gallop. Murmur: none Abd: Soft, Nontender, physiologic bowel sounds are present Extr: Lower extremity edema: None. Skin: warm, dry, well perfused Neuro: A&Ox3, No gross deficits Allergies No Known Allergies Medications Current Outpatient Medications: ALPRAZolam (Xanax) 0.5 mg tablet, Take 1 tablet by mouth in the morning, afternoon, and at bedtime., Disp: , Rfl: aspirin 81 mg chewable tablet, Chew 1 tablet every day by oral route., Disp: , Rfl: bumetanide (Bumex) 0.5 mg tablet, Take 1 tablet (0.5 mg) by mouth in the morning., Disp: 90 tablet, Rfl: 3 carvedilol (Coreg) 12.5 mg tablet, Take 1 tablet (12.5 mg) by mouth with breakfast and with evening meal., Disp: 180 tablet, Rfl: 3 clopidogrel (Plavix) 75 mg tablet, Take 1 tablet by mouth in the morning., Disp: , Rfl: empagliflozin (Jardiance) 10 mg, Take 1 tablet every day by oral route., Disp: , Rfl: famotidine (Pepcid) 40 mg tablet, Take 40 mg by mouth in the morning., Disp: , Rfl: HYDROcodone-acetaminophen (Metamora) 5-325 mg tablet, TAKE 1 TABLET BY MOUTH (more content not included)...[facility]07-11-2023 Note Patient here for 3 mo follow up CAD, HFrEF, and hypotension. His device was interrogated in the office in July 2022. Had CT chest and labs since last visit in June. Says his BP has been low and PCP has been adjusting meds. Amlodipine was stopped and isosorbide was cut in half. Still gets the chest pain and lightheadedness. He thinks the angina may be stress related. It is relieved with 1 nitroglycerin tablet. Denies SOB. Review of Systems Cardiovascular: Positive for chest pain. Musculoskeletal: Positive for arthritis, back pain, joint pain and myalgias. Neurological: Positive for light-headedness. All other systems reviewed and are negative.[facility] 10-01-2022 Evaluation note* Encounter Date Diagnosis Assessment Notes Treatment Notes Treatment Clinical Notes Sep, ASHD (arteriosclerotic heart disease) (ICD-10 - I25.10) [facility] Other 06-21-2023 Evaluation note* Encounter Date Diagnosis Assessment Notes Treatment Notes Treatment Clinical Notes Aug, ASHD (arteriosclerotic heart disease) (ICD-10 - I25.10) [facility] Other 06-02-2023 Evaluation note* Encounter Date Diagnosis Assessment Notes Treatment Notes Treatment Clinical Notes Aug, ASHD (arteriosclerotic heart disease) (ICD-10 - I25.10) This patient is stable without activity related CP, dyspnea or lightheadedness. They are instructed to continue exercise and AHA diet plan. Aug, Hypotension due to drugs (ICD-10 - I95.2) Reviewed medications. Reviewed causes of hypotension: - pre renal azotemia - autonomic dysfunction - overmedicated - anemia Recommended to hydrate Hold Amlodipine for now and monitor BP, HR closely _update office next week. Aug, Stage 3b chronic kidney disease (ICD-10 - N18.32) The patient is instructed on adequate control of hypertension and diabetes, if appropriate. They are also educated on the associated risks of NSAIDs and PPI use with kidney disease. They were instructed on adequate fluid balance and to avoid dehydration. Aug, Type 2 diabetes mellitus with hyperglycemia (ICD-10 - E11.65) This patient is following a comprehensive diabetic treatment plan. They are checking their feet daily for calluses and nonhealing ulcers. They are being seen for yearly dilated eye examinations. Goals: SBP less than 130, LDL less than 100, FBS less than 140, AC and A1C less than 7%. They are checking their BS daily, will which are reviewed at the office visit. Continue regular routine monitoring of A1C,] Microalbumin, Dilated eye exam and Foot exam Aug, Type 2 diabetes mellitus with diabetic chronic kidney disease (ICD-10 - E11.22) Aug, Type 2 diabetes mellitus with diabetic polyneuropathy (ICD-10 - E11.42) Inspect feet daily for cuts and calluses.Recommend diabetic shoes and inserts to prevent callus formation.Fall precautions. Aug, roasterman (current) use of insulin (ICD-10 - Z79.4) [facility] Other 05-11-2023 Evaluation note* Encounter Date Diagnosis Assessment Notes Treatment Notes Treatment Clinical Notes July, Ground glass opacity present on imaging of lung (ICD-10 - R91.8) CT: RML,RUL infiltrate - 12/2021, CT: RML,RUL improved - 03/2022 CT: RML, RUL, GGO improved - 07/2022 [facility] Other 04-25-2023 NoteCardiology Clinic Note Subjective Lani Lizama is a 71 y.o. year old male patient CAD s/p CABG almost 20 years ago, PVD, DM2 and hypertension. Still has chest discomfort which is a pressure-like pain on exertion lasting for several minutes, dissipates with rest. Has lightheadedness with abrupt position changes, overall symptoms seem to have improved. Patient Active Problem List Diagnosis Coronary atherosclerosis Type 1 diabetes mellitus (CMS/HCC) Essential hypertension Gastroesophageal reflux disease History of coronary artery bypass surgery Increased immunoglobulin Irritable bowel syndrome Mixed hyperlipidemia Monoclonal gammopathy Nausea Overweight with body mass index (BMI) 25.0-29.9 Right lower quadrant abdominal pain Spondylosis of lumbar spine Stage 3 chronic kidney disease (CMS/HCC) Stenosis of abdominal aorta Type 2 diabetes mellitus without complication (CMS/HCC) AV block, 3rd degree (CMS/HCC) Family History Problem Relation Name Age of Onset Heart attack Mother Other (malignant neoplastic disease) Father Other (malignant neoplastic disease) Brother Heart attack Maternal Grandmother Heart attack Maternal Grandfather Social History Tobacco Use Smoking status: Former Types: Cigarettes Smokeless tobacco: Never Substance Use Topics Alcohol use: Never Drug use: Never HPI Lani Lizama is a 71 y.o. year old with past medical history of CAD s/p CABG, PVD, DM2 and hypertension. He was recently admitted to [facility] for NSTEMI. Had inpatient stress test and heart cath. Denies SOB but still having chest pain and has taken nitroglycerin a few times for relief. Had CT chest last week s/p discharge. Cardiac catheterization revealed patent bypass grafts and worsening sh[place] ira vessel disease. Medications were adjusted. I had a conversation with his son also who mentions pt having bradycardia for ~1-2 months where HR was in 40's. It is unclear as to why he got the event monitor but this revealed presence of high degree AV block on 03/19/22 @9pm. Pt did not report syncope but state fatigue. He is on BB which he needs for CAD and Ischemic CMP. Update 05/02/2022 Was admitted to [facility] in December 2021 for what appears to be a non-ST elevation myocardial infarction. Cardiac catheterization revealed patent bypass grafts and worsening sh[place] ira vessel disease. Medications were adjusted. He states that he has had no chest pain for the past week. He described what sounded like typical angina with exertion. No orthopnea, no paroxysmal external dyspnea, no lower extremity edema. No claudication. He was admitted to [facility] in March for third-degree heart block and underwent permanent pacemaker placement Has been doing very well since then. Has no cardiovascular symptoms. Was a little concerned that his blood pressure was a little on the low side so stopped lisinopril. Review of Systems Cardiovascular: Positive for chest pain. Negative for claudication, dyspnea on exertion, irregular heartbeat, leg swelling, near-syncope, orthopnea, palpitations, paroxysmal nocturnal dyspnea and syncope. Musculoskeletal: Positive for arthritis. Objective Visit Vitals BP 125/82 (BP Location: Left arm, Patient Position: Sitting) Pulse 85 Ht 1.702 m (5' 7 ) Wt 78.5 kg (173 lb) SpO2 98% BMI 27.10 kg/m??? Smoking Status Former BSA 1.93 m??? Physical Exam General: Awake, alert, good spirits. NAD Pulm: Breath sounds clear to ascultation bilaterally with no wheeze, crackles or rhonchi Cards: Regular rate and rhythm, S1, S2. No S3 or S4 gallop. Murmur: none Abd: Soft, Nontender, physiologic bowel sounds are present Extr: Lower extremity edema: None. Skin: warm, dry, well perfused Neuro: A&Ox3, No gross deficits Allergies No Known Allergies Medications Current Outpatient Medications: ALPRAZolam (Xanax) 0.5 mg tablet, Take 1 tablet by mouth in the morning, afternoon, and at bedtime., Disp: , Rfl: amLODIPine (Norvasc) 10 mg tablet, Take 1 tablet by mouth in the morning., Disp: , Rfl: aspirin 81 mg chewable tablet, Chew 1 tablet every day by oral route., Disp: , Rfl: bumetanide (Bumex) 0.5 mg tablet, Take 1 tablet (0.5 mg) by mouth in the morning., Disp: 90 tablet, Rfl: 3 carvedilol (Coreg) 12.5 mg tablet, Take 1 tablet (12.5 mg) by mouth with breakfast and with evening meal., Disp: 180 tablet, Rfl: 3 clopidogrel (Plavix) 75 mg tablet, Take 1 tablet by mouth in the morning., Disp: , Rfl: empagliflozin (Jardiance) 10 mg, Take 1 tablet every day by oral route., Disp: , Rfl: famotidine (Pepcid) 40 mg tablet, Take 40 mg by mouth in the morning and at bedtime., Disp: , Rfl: insulin aspart (NovoLOG) 100 unit/mL injection, Inject under the skin 1 (one) time., Disp: , Rfl: insulin detemir (Levemir) 100 unit/mL injection, Inject under the skin in the morning and at bedtime., Disp: , Rfl: isosorbide mononitrate ER (Imdur) 60 mg 24 hr tablet, (more content not included)...[facility]04-25-2023 NotePatient here for 4 week follow up hypertension, CAD, and cardiomyopathy. He brought in his BP machine from home for comparison and got 125/71 R sitting, HR 84. Says his chest pain has not changed from last visit in May 2022. Carvedilol was increased to 12.5mg bid. Review of Systems Cardiovascular: Positive for chest pain and leg swelling. Neurological: Positive for light-headedness. All other systems reviewed and are negative.[facility] 07-02-2022 Evaluation note* Encounter Date Diagnosis Assessment Notes Treatment Notes Treatment Clinical Notes Jun, Chronic kidney disea se, stage 3 unspecified (ICD-10 - N18.30) He has CKD due to longstanding DM with HTN. . His b/l serum Creatinine is 1.5-1.8 mg/dl. His renal ultrasound showed unremarkable kidneys but postvoid urinary bladder volume of 103 mL. I have d/w him the importance of good DM and HTN control to slow down the progression of CKD. 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 Continue current medications. I have advised him to monitor his blood pressure at home and call office if stays above 140/90 mmHg. Jun, Diabetes mellitus wi th chronic kidney disease (ICD-10 - E11.22) His blood sugars are within the acceptable range. I have advised him to continue to follow with [facility] for DM management. He takes Lisinopril and engineers for renal protection and slow down the progression of CKD. I will continue both of those medications. I explained to him that he due to his risk of hypotension and fluctuant renal function I will prefer not to start him on Kerendia. Jun, Dyslipidemia (ICD-10 - E78.5) Continue statins. We will monitor LFTs and lipid profile periodically. Jun, Secondary hyperparathyroidism (ICD-10 - N25.81) He has a mild hyperphosphatemia but normal calcium vitamin D and PTH. Advised low phosphorus diet. [facility] Other 03-30-2023 Evaluation note* Encounter Date Diagnosis Assessment Notes Treatment Notes Treatment Clinical Notes May, Medicare annual wellness visit, subsequent (ICD-10 - Z00.00) Personalized health advice was given to the beneficiary including a written plan for screenings discussed and provided. Advanced care planning reviewed and/or information given as requested. Additional counseling was provided here today in regards to, [ ]. The above visit was performed by [ ], under direct supervision of [ ]. Document reviewed and amended by provider signed below. Healthy diet and exercise. Reviewed age-appropriate preventive testing recommended. May, ASHD (arteriosclerotic heart disease) (ICD-10 - I25.10) This patient is stable without activity related CP, dyspnea or lightheadedness. They are instructed to continue exercise and AHA diet plan. May, Primary hypertension (ICD-10 - I10) This patient is instructed to consume a healthy, low-fat, low-salt diet. They are also encouraged to continue exercise to achieve/maintain a normal BMI. May, Elevated cholesterol (ICD-10 - E78.00) Diet and exercise with continued statin therapy. May, Type 2 diabetes mellitus with hyperglycemia (ICD-10 - E11.65) This patient is following a comprehensive diabetic treatment plan. They are checking their feet daily for calluses and nonhealing ulcers. They are being seen for yearly dilated eye examinations. Goals: SBP less than 130, LDL less than 100, FBS less than 140, AC and A1C less than 7%. They are checking their BS daily, will which are reviewed at the office visit. May, roasterman (current) use of insulin (ICD-10 - Z79.4) May, Gastro-esophageal reflux disease with esophagitis, without bleeding (ICD-10 - K21.00) Diet instructions: Smaller portions, avoid eating and laying flat, avoid eating or drinking prior to bedtime. Weight loss. May, Stage 3b chronic kidney disease (ICD-10 - N18.32) The patient is instructed on adequate control of hypertension and diabetes, if appropriate. They are also educated on the associated risks of NSAIDs and PPI use with kidney disease. They were instructed on adequate fluid balance and to avoid dehydration. May, Screening PSA (prostate specific antigen) (ICD-10 - Z12.5) Yearly PSA and ABDELRAHMAN [facility] Other 03-28-2023 Evaluation note* Encounter Date Diagnosis Assessment Notes Treatment Notes Treatment Clinical Notes May, Dietary counseling and surveillance (ICD-10 - Z71.3) Eat a diet rich in fruits and vegetables material was printed May, Type 2 diabetes mellitus with diabetic chronic kidney disease (ICD-10 - E11.22) Type 2 diabetes material was printed 1. Uncontrolled, a Type 2 diabetes with A1c of 7.4% 2. Blood glucose levels stable. According to [employer] cgm download 06/13/2022- 3: Average glucose 190. Above 250-14%, >180- 38%, 70-180-48%, <70-0%, <54-0%. CV 28.2%. Reviewed download with pt, isolated incident of hypoglycemia. Glucose above target postprandail breakfast/supper. Glucose above target likely d/t being without ozempic. Pt was given sample ozempic recommend he restart dose 0.25mg once weekly x4 weeks then 0.5mg once weekly x2 weeks then 1mg once weekly once shipment of ozempic comes in. Recommend he contact [facility] to check on status of order- phone number was given. Pt to contact office before running out of ozempic if a sample is available will give sample. Pt verbalizes understanding. If gfr drops < 25 may need to consider stopping jardiance. 3. Patient is alert, oriented and receptive to making changes or counseling. Notes: Seen for an assessment of current glucose pattern, changes in treatment plan, with this time spent in counseling and coordination of care related to diabetes, risks, and benefits of treatment, medications, and side effects. TOPICS REVIEWED: 1. Time was spent reviewing: a. Basic concepts of diabetes, progressive beta cell , concepts of basal/bolus/correc tive insulin requirements. Basal: The goal is fasting blood glucose of 90-130mg. IF fasting blood glucose starts to run under 100mg 3x's/ week, decrease dose by 10%. Bolus: The goal is to hold the blood glucose level steady meal to meal. If pt. is going to have increased physical activity after a meal, decrease the schedule meal dose prior to the activity by 30-50%. If pt. skips a meal do not take this dose. Correction: The goal is to correct an elevated glucose back into the 100-150mg range b. Nutrition: Concepts of healthy diet, encouraged to decrease saturated fat in diet and increase non-starchy vegetables and fruits in diet. BMI: Pt. needs to select one small change to decrease caloric intake or increase physical activity to help decrease weight. c. Correct treatment of hypoglycemia, carry a glucose source at all times on your person, in vehicles, and at bedside. Can use glucose tablets/4, four ounces of pop or juice equal to 15 G of carbohydrate. Blood glucose should be 100 mg/dl or higher when driving. d. ADA glucose goals for age and medical complexity reviewed e. Patient questions addressed 2. Activity/exercise: Encouraged to start any form of physical activity. Start low level and increase slowly to a minimal goal of 150 minutes/week. Limit activity to what is allowed by other issues such as cardiac, pulmonary or orthopedic restrictions. 3. Standards of care: Reminded to have an annual dilated eye exam, A1C every 3 months, urine testing for microalbumin once/year, check feet daily and report any cuts or sores that do not appear to be healing. 4. Meter: Plan to check blood glucose: Please check blood glucose levels 4 times/day. Back to back meals reveal effectiveness of bolus dosing. The blood glucose data is used to determine insulin doses and confirm symptoms for hypoglycemia and hyperglcyemia. The blood glucose data is used to determine insulin doses, and confirm symptoms for hypoglycemia and hyperglcyemia.5. [facility]. Contact office if any issues or concerns with patterns of hypoglycemia, hyperglycemia, or diabetes medication issues. 6. Prescriptions: BI PAP-Jardiance; [facility] PAP-Novolog/Levemi r/Ozempic; Sample pen of Ozempic 2mg/3mL given to patient 06/26/22. Called [facility] rx was processed 06/24/22 and their may be a delay up to six weeks on ozempic/novolog. 7. Prescriptions will not be filled unless you are compliant with follow up appointments or have a follow up appointment scheduled as ordered by your provider. Refills should be requested at the time of your visit. May, HTN (hypertension) (ICD-10 - I10) About hypertension material was printed on diony. May, [facility] current use of insulin (ICD-10 - Z79.4) May, Hyperlipidemia (ICD-10 - E78.5) High cholesterol material was printed 05/2022 ldl 69- on statin. May, BMI 27.0-27.9,adult (ICD-10 - Z68.27) Eating healthy: tips to make it easier material was printed [facility] Other 03-27-2023 NotePatient here c/o chest pressure with and without exertion. Says his BP has been low and HR has been elevated. Says BP has been around 109/112 systolic and around 60 diastolic. HR has been 90/105. Last month Dr. Bishop decreased his coreg down to 6.25mg bid. Review of Systems Cardiovascular: Positive for chest pain and leg swelling. Neurological: Positive for light-headedness. All other systems reviewed and are negative.[facility] 06-25-2022 NoteCardiology Clinic Note Subjective Lani Lizama is a 71 y.o. year old male patient CAD s/p CABG almost 20 years ago, PVD, DM2 and hypertension. Has chest pressure about 3x since March and lightheadedness. Chest pressure occurred at rest and on exertion, and lasted for several minutes. Did not take NTG/. Lightheadedness occurs with abrupt standing. Patient Active Problem List Diagnosis Coronary atherosclerosis Type 1 diabetes mellitus (CMS/HCC) Essential hypertension Gastroesophageal reflux disease History of coronary artery bypass surgery Increased immunoglobulin Irritable bowel syndrome Mixed hyperlipidemia Monoclonal gammopathy Nausea Overweight with body mass index (BMI) 25.0-29.9 Right lower quadrant abdominal pain Spondylosis of lumbar spine Stage 3 chronic kidney disease (CMS/HCC) Stenosis of abdominal aorta Type 2 diabetes mellitus without complication (CMS/HCC) AV block, 3rd degree (CMS/HCC) Family History Problem Relation Name Age of Onset Heart attack Mother Other (malignant neoplastic disease) Father Other (malignant neoplastic disease) Brother Heart attack Maternal Grandmother Heart attack Maternal Grandfather Social History Tobacco Use Smoking status: Former Types: Cigarettes Smokeless tobacco: Never Substance Use Topics Alcohol use: Never Drug use: Never HPI Lani Lizama is a 71 y.o. year old with past medical history of CAD s/p CABG, PVD, DM2 and hypertension. He was recently admitted to [facility] for NSTEMI. Had inpatient stress test and heart cath. Denies SOB but still having chest pain and has taken nitroglycerin a few times for relief. Had CT chest last week s/p discharge. Cardiac catheterization revealed patent bypass grafts and worsening [place] ira vessel disease. Medications were adjusted. I had a conversation with his son also who mentions pt having bradycardia for ~1-2 months where HR was in 40's. It is unclear as to why he got the event monitor but this revealed presence of high degree AV block on 03/19/22 @9pm. Pt did not report syncope but state fatigue. He is on BB which he needs for CAD and Ischemic CMP. Update 05/02/2022 Was admitted to [facility] in December 2021 for what appears to be a non-ST elevation myocardial infarction. Cardiac catheterization revealed patent bypass grafts and worsening sh[place] ira vessel disease. Medications were adjusted. He states that he has had no chest pain for the past week. He described what sounded like typical angina with exertion. No orthopnea, no paroxysmal external dyspnea, no lower extremity edema. No claudication. He was admitted to [facility] in March for third-degree heart block and underwent permanent pacemaker placement Has been doing very well since then. Has no cardiovascular symptoms. Was a little concerned that his blood pressure was a little on the low side so stopped lisinopril. ROS Objective Visit Vitals BP 146/85 (BP Location: Right arm, Patient Position: Sitting) Pulse 87 Ht 1.702 m (5' 7 ) Wt 78 kg (172 lb) SpO2 96% BMI 26.94 kg/m??? Smoking Status Former BSA 1.92 m??? Physical Exam General: Awake, alert, good spirits. NAD Pulm: Breath sounds clear to ascultation bilaterally with no wheeze, crackles or rhonchi Cards: Regular rate and rhythm, S1, S2. No S3 or S4 gallop. Murmur: none Abd: Soft, Nontender, physiologic bowel sounds are present Extr: Lower extremity edema: None. Skin: warm, dry, well perfused Neuro: A&Ox3, No gross deficits Allergies No Known Allergies Medications Current Outpatient Medications: ALPRAZolam (Xanax) 0.5 mg tablet, Take 1 tablet by mouth in the morning, afternoon, and at bedtime., Disp: , Rfl: amLODIPine (Norvasc) 10 mg tablet, Take 1 tablet by mouth in the morning., Disp: , Rfl: aspirin 81 mg chewable tablet, Chew 1 tablet every day by oral route., Disp: , Rfl: bumetanide (Bumex) 0.5 mg tablet, Take 1 tablet (0.5 mg) by mouth in the morning., Disp: 90 tablet, Rfl: 3 carvedilol (Coreg) 6.25 mg tablet, Take 1 tablet (6.25 mg) by mouth with breakfast and with evening meal., Disp: 180 tablet, Rfl: 3 clopidogrel (Plavix) 75 mg tablet, Take 1 tablet by mouth in the morning., Disp: , Rfl: empagliflozin (Jardiance) 10 mg, Take 1 tablet every day by oral route., Disp: , Rfl: famotidine (Pepcid) 40 mg tablet, Take 40 mg by mouth in the morning and at bedtime., Disp: , Rfl: insulin aspart (NovoLOG) 100 unit/mL injection, Inject under the skin 1 (one) time., Disp: , Rfl: insulin detemir (Levemir) 100 unit/mL injection, Inject under the skin in the morning and at bedtime., Disp: , Rfl: isosorbide mononitrate ER (Imdur) 60 mg 24 hr tablet, Take 1 tablet by mouth in the morning and at bedtime., Disp: , Rfl: lisinopril 5 mg tablet, Take 1 tablet (5 mg) by mouth in the morning., Disp: 90 tablet, Rfl: 3 lovastatin (Mevacor) 40 mg tablet, in the evening., Disp: , Rfl: multivitamin capsule, Take 1 capsu (more content not included)...[facility]02-25-2023 Evaluation note* Encounter Date Diagnosis Assessment Notes Treatment Notes Treatment Clinical Notes May, Abnormality of lung on CXR (ICD-10 - R91.8) [facility] Note Chief Complaint: Patient here for [address] [facility], s/p admission for 3rd degree heart block. He underwent device implantation on 03/21/2022. Had BMP 2 weeks ago. Says his BP is still running low and he's stopped taking lisinopril. Denies chest pain and SOB. Does get lightheaded at times. But is feeling much better he states. HPI: Lani Lizama is a 71 y.o. male presents to clinic for routine f/u for known CAD s/p CABG, PVD, HTN, HPL, DM type 2. Currently denied chest pain, shortness of breath, orthopnea, dizziness, vision changes, N/T or one sided weakness. States chronic back pain is his exercise limiting factor. Was admitted to [facility] in December for what appears to be a non-ST elevation myocardial infarction. Cardiac catheterization revealed patent bypass grafts and worsening sh[place] ira vessel disease. Medications were adjusted. He states that he has had no chest pain for the past week. He described what sounded like typical angina with exertion. No orthopnea, no paroxysmal external dyspnea, no lower extremity edema. No claudication. He was admitted to [facility] in March for third-degree heart block and underwent permanent pacemaker placement Has been doing very well since then. Has no cardiovascular symptoms. Was a little concerned that his blood pressure was a little on the low side so stopped lisinopril. Cardiology ROS: Review of Systems Cardiovascular: Positive for leg swelling. Neurological: Positive for light-headedness. All other systems reviewed and are negative. Past Medical History He has a past medical history of Carotid artery stenosis, Coronary artery disease, Diabetes mellitus ([facility]), Hyperlipidemia, Hypertension, and PVD (peripheral vascular disease) ([facility]). Surgical History He has a past surgical history that includes Cardiac catheterization (07/12/2020); Cardiac catheterization (10/15/2018); Cardiac catheterization (02/24/2018); Cardiac catheterization (09/27/2015); Coronary stent placement; and Coronary artery bypass graft. Social History He reports that he has quit smoking. His smoking use included cigarettes. He has never used smokeless tobacco. He reports that he does not drink alcohol and does not use drugs. Family History Family History Problem Relation Name Age of Onset Heart attack Mother Other (malignant neoplastic disease) Father Other (malignant neoplastic disease) Brother Heart attack Maternal Grandmother Heart attack Maternal Grandfather Allergies Patient has no known allergies. Medications Current Outpatient Medications: ALPRAZolam (Xanax) 0.5 mg tablet, Take 1 tablet by mouth in the morning, afternoon, and at bedtime., Disp: , Rfl: amLODIPine (Norvasc) 10 mg tablet, Take 1 tablet by mouth in the morning., Disp: , Rfl: aspirin 81 mg chewable tablet, Chew 1 tablet every day by oral route., Disp: , Rfl: bumetanide (Bumex) 0.5 mg tablet, Take 1 tablet (0.5 mg) by mouth in the morning., Disp: 90 tablet, Rfl: 3 carvedilol (Coreg) 25 mg tablet, Take 25 mg by mouth with breakfast and with evening meal., Disp: , Rfl: clopidogrel (Plavix) 75 mg tablet, Take 1 tablet by mouth in the morning., Disp: , Rfl: empagliflozin (Jardiance) 10 mg, Take 1 tablet every day by oral route., Disp: , Rfl: insulin aspart (NovoLOG) 100 unit/mL injection, Inject under the skin 1 (one) time., Disp: , Rfl: insulin detemir (Levemir) 100 unit/mL injection, Inject under the skin in the morning and at bedtime., Disp: , Rfl: isosorbide mononitrate ER (Imdur) 60 mg 24 hr tablet, Take 1 tablet by mouth in the morning and at bedtime., Disp: , Rfl: lisinopril 20 mg tablet, Take 20 mg by mouth., Disp: , Rfl: lovastatin (Mevacor) 40 mg tablet, in the evening., Disp: , Rfl: multivitamin capsule, Take 1 capsule by mouth in the morning., Disp: , Rfl: nitroglycerin (Nitrostat) 0.4 mg SL tablet, PLACE 1 TABLET UNDER TONGUE EVERY 5 MINS, UP TO 3 DOSES NEEDED FOR CHEST PAIN, Disp: , Rfl: ondansetron ODT (Zofran-ODT) 4 mg disintegrating tablet, DISSOLVE 1 TABLET IN MOUTH EVERY 4 HOURS NEEDED FOR NAUSEA AND VOMITING, Disp: , Rfl: pantoprazole (ProtoNix) 40 mg EC tablet, TAKE 1 TABLET BY MOUTH EVERYDAY ON AN EMPTY STOMACH FOLLOWED IN 30 MINUTES BY BREAKFAST, Disp: , Rfl: potassium chloride CR (Klor-Con) 10 mEq ER tablet, Take 1 tablet (10 mEq) by mouth in the morning., Disp: 90 tablet, Rfl: 3 promethazine (Phenergan) 25 mg tablet, TAKE 1 TABLET BY MOUTH EVERY 6 HOURS NEEDED FOR NAUSEA AND VOMITING, Disp: , Rfl: semaglutide (OZEMPIC SUBQ), qWeek, Refill(s) 0, Disp: , Rfl: Last Recorded Vitals Patient Vitals for the past 24 hrs: BP Pulse SpO2 Height Weight 05/02/22 1121 112/77 79 97 % 1.702 m (5' 7 ) 74.4 kg (164 lb) Physical Examination: GENERAL: alert and oriented x3, well developed, (more content not included)... [facility]01-03-2023 NotePatient here for wound check s/p device placement on 03/21/[address] Arteaga.[facility]01-03-2023 NoteWound dressing is mildly saturated with sanguinous drainage, it is dry. No drainage noted from incision, wound is clean, No erythema, warmth, tenderness, hematoma. Wound appears to be healing well. No ecchymosis. Patient to have device check scheduled with [employer].[facility]12-21-2022 NoteDUAL CHAMBER PACEMAKER IMPLANT PROCEDURE NOTE DATE OF PROCEDURE: 03/21/22 PERFORMING PHYSICIAN: Dr. 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 Implantation of pacemaker ([employer]) 2. Ultrasound guided venous access INDICATIONS: 1. 3rd degree AV block 2. Bradycardia PROCEDURAL SEDATION: Versed and Fentanyl. Moderate sedation was administered by the sedation nurse under my supervision and noted in the CVL log. Intraprocedural face to face sedation time: 53min. Monitoring: Cardiac telemetry, Blood pressure, continuous pulse oxymetry. FLUOROSCOPY TIME: [id number]/ [id number]. EBL: 15cc SPECIMEN REMOVED: None PREPARATION: 71 y.o. year old with past medical history of CAD s/p CABG, PVD, DM2 and hypertension. He was recently admitted to [facility] for NSTEMI. Had inpatient stress test and heart cath. Denies SOB but still having chest pain and has taken nitroglycerin a few times for relief. Had CT chest last week s/p discharge. Cardiac catheterization revealed patent bypass grafts and worsening shish[place] ira vessel disease. Medications were adjusted. I had a conversation with his son also who mentions pt having bradycardia for ~1-2 months where HR was in 40's. It is unclear as to why he got the event monitor but this revealed presence of 3rd degree AV block on 03/19/22 @9pm. Pt did not report syncope but states fatigue. He is on BB which he needs for CAD and Ischemic CMP. PROCEDURAL DETAILS: Patient was placed in trendelenberg position and ultrasound was used to evaluate the patency of left axillary vein and for venous access. Left axillary venous access was obtained using modified seldinger technique using a 5 Canadian micro-puncture needle on two occasions and 0.35 wires were placed. Local infiltration of 1% Lidocaine was performed, and an incision was created in the left upper chest. Dissection was then performed using cautery down to the fascial plane above the muscle. The belly of the pectoralis was identified and with gentle blunt dissection a small pocket was created for the device above the muscle. 6 Canadian Safesheaths were placed over the wire. An active fixation [employer] pacing lead was then delivered through the 6Fsheath to the right ventricle. After confirmation of lead position on orthogonal views (DOWNING and CZECH) to confirm septal position, the screw was activated, and the lead was placed in the right ventricular mid cavity towards the septum. After confirmation of good sensing parameters, injury pattern and pacing thresholds, 10V pacing was done and no diaphragmatic stimulation was noted. It was then secured in the pocket using three 1-0 Silk sutures. Then an active fixation [employer] lead was delivered through the 6Fsheath to the right atrial appendage. After confirmation of lead position on orthogonal views (DOWNING and CZECH), the screw was activated. Good sensing parameters, injury pattern and pacing thresholds, the lead was then tested using Lambert's maneuver. 10V pacing was done and no diaphragmatic stimulation was noted. It was then secured in the pocket using three 1-0 Silk sutures. Pocket hemostasis was secured, and it was then copiously and vigorously irrigated with antibiotic solution. The leads were attached to the generator and then wrapped under the device and the device was tacked to underlying muscle and placed in the pocket. The pocket was closed in layers: subcutaneous layer using 2-0 Vicryl; skin using 3-0 absorbable monofilament suture. Glue was applied and Tegaderm dressing was placed on top. Lead parameters were then rechecked through the device as noted below. The patient was returned to the short stay room for post procedural observation. No immediate procedural complications were noted. POST PROCEDURE EXAM: Patient was hemodynamically stable. COMPLICATIONS: None. IMPRESSION: 1. Successful dual chamber pacemaker with excellent pacing and sensing parameters. RECOMMENDATIONS: 1. Occlusive dressing to be removed after 2 weeks. 2. Do not wet the incision for 7 days. 3. No lifting heavy weights using arm on the same side x 3weeks 4. Do not lift elbow above the shoulder on the same side for 4-6 weeks. 5. No driving for 1 month. 6. F/u in device clinic 1 week from discharge or sooner for any concerns. Kevin Arteaga MD [facility] Patient: Lani Lizama Procedure Information Date/Time: 03/21/22 1310 Procedure: Pacemaker DC new Location: [facility] PRODUCTION RECORDER 2 BIPLANE / [facility] (Cath) Providers: Kevin Arteaga MD Clinical information reviewed: Tobacco Allergies Med Hx Surg Hx Fam Hx Soc Hx Physical Exam Airway Mallampati: II TM distance: >3 FB Neck ROM: full Cardiovascular Dental Pulmonary Abdominal Anesthesia Plan ASA 2 CSE Anesthetic plan and risks discussed with patient. Use of blood products discussed with patient who. [facility] Procedure ECG 12 lead Performed by: Ron Perea MD Authorized by: Ron Perea MD ECG reviewed by ED Physician in the absence of a coal pulverizing operator: yes Rate: ECG rate: 46 ECG rate assessment: bradycardic Rhythm: Rhythm: sinus bradycardia QRS: QRS axis: Normal ST segments: ST segments: Non-specific T waves: T waves: non-specific Comments: Marked sinus bradycardia with first-degree AV block MD interval 250 ms QRS duration 104 ms QTC 427 ms Ron Perea MD 03/21/22 0923[facility] NoteUT Cardiology Consult Note Date of Telehealth Visit: The patient was notified that using 3rd republican telecommunication application (e.g., Clink) is not HIPPA compliant and may carry some privacy risks. Yes The visit was conducted [id number]-rl-roat with the use of audio and video technology Keo. between patient and provider for a virtual visit. Verbal consent to provide and bill this service was obtained on 03/20/22 . No signature was obtained due to the COVID-19 pandemic. Patient Location: Patient Home I spent 22 minutes of total time on the day of the visit. This time was spent preparing for the visit, obtaining and reviewing any outside history/data, taking a history, performing an exam/evaluation, counseling and educating patient/family about the diagnosis and plan, performing medical decision making, referring to and communicating with other health care referrals, independently interpreting results and documenting in the EMR, and coordinating care. Please see the additional documentation in this note for specific details. Reason for visit: Complete heart block on event monitor HPI: Lani Lizama is a 71 y.o. year old with past medical history of CAD s/p CABG, PVD, DM2 and hypertension. He was recently admitted to [facility] for NSTEMI. Had inpatient stress test and heart cath. Denies SOB but still having chest pain and has taken nitroglycerin a few times for relief. Had CT chest last week s/p discharge. Cardiac catheterization revealed patent bypass grafts and worsening [place] ira vessel disease. Medications were adjusted. I had a conversation with his son also who mentions pt having bradycardia for ~1-2 months where HR was in 40's. It is unclear as to why he got the event monitor but this revealed presence of high degree AV block on 03/19/22 @9pm. Pt did not report syncope but state fatigue. He is on BB which he needs for CAD and Ischemic CMP. PMH: Past Medical History: Diagnosis Date Carotid artery stenosis Coronary artery disease Diabetes mellitus ([facility]) Hyperlipidemia Hypertension PVD (peripheral vascular disease) ([facility]) PSH: Past Surgical History: Procedure Laterality Date CARDIAC CATHETERIZATION 07/12/2020 CARDIAC CATHETERIZATION 10/15/2018 CARDIAC CATHETERIZATION 02/24/2018 CARDIAC CATHETERIZATION 09/27/2015 CORONARY ARTERY BYPASS GRAFT CORONARY STENT PLACEMENT SH: Social Determinants of Health Tobacco Use: Medium Risk Smoking Tobacco Use: Former Smokeless Tobacco Use: Never Passive Exposure: Not on file Alcohol Use: Not on file Financial Resource Strain: Not on file Food Insecurity: Not on file Transportation Needs: Not on file Physical Activity: Not on file Stress: Not on file Social Connections: Not on file Intimate Partner Violence: Not on file Depression: Not on file Housing Stability: Not on file Allergies: No Known Allergies Weight: No results found for: PTWEIGHT Meds: Current Outpatient Medications on File Prior to Visit Medication Sig Dispense Refill ALPRAZolam (Xanax) 0.5 mg tablet Take 1 tablet by mouth in the morning, afternoon, and at bedtime. amLODIPine (Norvasc) 10 mg tablet Take 1 tablet by mouth in the morning. aspirin 81 mg chewable tablet Chew 1 tablet every day by oral route. carvedilol (Coreg) 25 mg tablet Take 25 mg by mouth with breakfast and with evening meal. clopidogrel (Plavix) 75 mg tablet Take 1 tablet by mouth in the morning. empagliflozin (Jardiance) 10 mg Take 1 tablet every day by oral route. insulin aspart (NovoLOG) 100 unit/mL injection Inject under the skin 1 (one) time. insulin detemir (Levemir) 100 unit/mL injection Inject under the skin in the morning and at bedtime. isosorbide mononitrate ER (Imdur) 60 mg 24 hr tablet Take 1 tablet by mouth in the morning and at bedtime. lisinopril 20 mg tablet Take 20 mg by mouth. lovastatin (Mevacor) 40 mg tablet in the evening. multivitamin capsule Take 1 capsule by mouth in the morning. nitroglycerin (Nitrostat) 0.[address] 1 TABLET UNDER TONGUE EVERY 5 MINS, UP TO 3 DOSES NEEDED FOR CHEST PAIN pantoprazole (ProtoNix) 40 mg EC tablet TAKE 1 TABLET BY MOUTH EVERYDAY ON AN EMPTY STOMACH FOLLOWED IN 30 MINUTES BY BREAKFAST semaglutide (OZEMPIC SUBQ) qWeek, Refill(s) 0 No current facility-administered medications on file prior to visit. ROS: Cardio Basic Cardiovascular Symptoms: no lightheadedness, no leg edema, no syncope, no orthopnea, no PND, no claudication, Constitutional Constitutional: no fever, no night sweats, no significant weight gain, no significant weight loss, no exercise intolerance Eyes Eyes: no dry eyes, no irritation, no vision change ENMT Ears: no difficulty hearing, no ear pain Nose: no frequent nosebleeds, Mouth/Throat: no sore throat, no bleeding gums, no snoring, no dry mouth, no mouth ulcers, no oral abnormalities, no teeth problems Respiratory Respiratory: no cough, no whe (more content not included)...[facility] Evaluation note* Encounter Date Diagnosis Assessment Notes Treatment Notes Treatment Clinical Notes Mar, Dietary counseling and surveillance (ICD-10 - Z71.3) Eat a diet rich in fruits and vegetables material was printed Mar, Type 2 diabetes mellitus with diabetic chronic kidney disease (ICD-10 - E11.22) Type 2 diabetes material was printed 1. Controlled, a Type 2 diabetes with A1c of 6.7% 2. Blood glucose levels stable. According to [employer] cgm download 03/07/2022-03/20/20 22: Average glucose 144. Above 250-0%, >180- 15%, 70-180-85%, <70-0%, <54-0%. CV 24.3%. Reviewed download with pt, no incidence of hypoglcyemia noted. Glucose rise between 12-6pm. D/t current shortage of ozempic, recommend pt reduce dose to 0.5mg once weekly until shipment recieved from [facility], then increase to 1mg once weekly. Reviewed with pt how to titrate basal/bolus insulin according to fasting am/ac supper and meal to meal glucose pattern. Pt verbalizes understanding. If gfr drops < 25 may need to consider stopping jardiance. 3. Patient is alert, oriented and receptive to making changes or counseling. Notes: Seen for an assessment of current glucose pattern, changes in treatment plan, with this time spent in counseling and coordination of care related to diabetes, risks, and benefits of treatment, medications, and side effects. TOPICS REVIEWED: 1. Time was spent reviewing: a. Basic concepts of diabetes, progressive beta cell , concepts of basal/bolus/correc tive insulin requirements. Basal: The goal is fasting blood glucose of 90-130mg. IF fasting blood glucose starts to run under 100mg 3x's/ week, decrease dose by 10%. Bolus: The goal is to hold the blood glucose level steady meal to meal. If pt. is going to have increased physical activity after a meal, decrease the schedule meal dose prior to the activity by 30-50%. If pt. skips a meal do not take this dose. Correction: The goal is to correct an elevated glucose back into the 100-150mg range b. Nutrition: Concepts of healthy diet, encouraged to decrease saturated fat in diet and increase non-starchy vegetables and fruits in diet. BMI: Pt. needs to select one small change to decrease caloric intake or increase physical activity to help decrease weight. c. Correct treatment of hypoglycemia, carry a glucose source at all times on your person, in vehicles, and at bedside. Can use glucose tablets/4, four ounces of pop or juice equal to 15 G of carbohydrate. Blood glucose should be 100 mg/dl or higher when driving. d. ADA glucose goals for age and medical complexity reviewed e. Patient questions addressed 2. Activity/exercise: Encouraged to start any form of physical activity. Start low level and increase slowly to a minimal goal of 150 minutes/week. Limit activity to what is allowed by other issues such as cardiac, pulmonary or orthopedic restrictions. 3. Standards of care: Reminded to have an annual dilated eye exam, A1C every 3 months, urine testing for microalbumin once/year, check feet daily and report any cuts or sores that do not appear to be healing. 4. Meter: Plan to check blood glucose: Please check blood glucose levels 4 times/day. Back to back meals reveal effectiveness of bolus dosing. The blood glucose data is used to determine insulin doses and confirm symptoms for hypoglycemia and hyperglcyemia. The blood glucose data is used to determine insulin doses, and confirm symptoms for hypoglycemia and hyperglcyemia.5. [facility]. Contact office if any issues or concerns with patterns of hypoglycemia, hyperglycemia, or diabetes medication issues. 6. Prescriptions: pap for bi- jardiance; Gutierrez- novolog/levemir/oz empic. 7. Prescriptions will not be filled unless you are compliant with follow up appointments or have a follow up appointment scheduled as ordered by your provider. Refills should be requested at the time of your visit. Mar, HTN (hypertension) (ICD-10 - I10) About hypertension material was printed on diony. Mar, [facility] current use of insulin (ICD-10 - Z79.4) Mar, Hyperlipidemia (ICD-10 - E78.5) High cholesterol material was printed 06/2021 ldl 48- on statin. Mar, BMI 26.0-26.9,adult (ICD-10 - Z68.26) Eating healthy: tips to make it easier material was printed 9 pound weight loss from last visit, continue with weight loss efforts [employer] Other 11-10-2022 Evaluation note* Encounter Date Diagnosis Assessment Notes Treatment Notes Treatment Clinical Notes Jan, Diabetes mellitus with chronic kidney disease (ICD-10 - E11.22) Ide[facility] Other 10-19-2022 Discharge summary Author Gagan Shahid [facility] January 17, 2022 3:02pm Note Date/Time January 17, 2022 3 :02pm [facility] [address] [place] [address] Discharge Summary Signed Patient: Lani Lizama MR#: [id number] : 1950 Acct:[id number] Age/Sex: 71 / M Adm Date: 2 Loc: Room: [address] [place] [address]: Gagan Shahid DO Copies to: Harley Crespo,DO Gagan Shahid, DO~ Providers Date of Discharge: 01/17/22 Discharging Provider: Gagan Shahid Primary Care Provider: Harley Crespo Consults: 01/15/22 17:24 Consult to Cardiology Routine 01/17/22 09:58 Consult to Cardiac Rehabilitation Stat Discharge Diagnosis (1) Non-ST elevation myocardial infarction (NSTEMI), initial care episode: Final Diagnosis Final Discharge Diagnosis: In addition to the above diagnoses: 2. Hypertension 3. Shortness of breath 4. Hyperlipidemia 5. GERD 6. Type 2 diabetes mellitus Summary Hospital Course Hospital course: This patient is a 71-year-old male with a history of 5 vessel coronary artery bypass grafting a number of years ago. He presented to outside emergency departments morning of 01/15/2022 with a chief complaint of chest pain. Initially thought this to be indigestion/GERD in the certified nurse aide hours howeverthis progressively worsened prompting his presentation to the ER. His troponin levels (high-sensitivity 17 pg/mL) uptrending with readings peaking at 1786 pg/mL and downtrending thereafter. Some mild T wave inversion was noted in the inferior leads and the patient was started on heparin prior to his transfer. Kept on aspirin and Plavix (previously prescribed home medications). Cardiologywas consulted for management of non-ST segment elevation TN. Cardiac catheterization was undergone on 01/16/2022 showing no occlusive disease. He did undergo a nuclear stress test the following day to assess for reversible areas of ischemia which were not noted. Subsequently the patient has been referred to cardiac rehab and will go home on antihypertensive control with high-dose carvedilol and Imdur. Prescriptions were provided. His vitals remained stable and he has no further chest pain. He will follow-up with his PCP and cardiology as an outpatient. Physical Examination: GENERAL APPEARANCE: Alert, up in bed AAOx3 HEENT: NCAT, MMM NECK: Neck soft w/o masses, no JVD CARDIAC: Normal S1 and S2. No S3, S4 or murmurs. LUNGS: Clear to auscultation bilaterally. no wheeze/rhonchi/rales ABDOMEN: Positive bowel sounds. Soft, nontender. No guarding or signs of an acute abdomen MUSCULOSKELETAL: No joint erythema or tenderness. EXTREMITIES: No clubbing, cyanosis or edema PSYCHIATRIC: Appropriate mood and affect 40 minutes were spent coordinating the discharge of this patient Time Spent with Patient Time spent providing/coordinating discharge services (# min): 40 Surgeries and Procedures Operation Date: 01/16/22 13:00 Actual Procedures p CL LHC & COR Angio w/grafts - Luis Alfredo Borges MD Diagnostic Studies Completed and Pending Studies Pending studies at discharge: 01/18/22 05:00 Basic Metabolic Panel [CHEM] IN AM 01/19/22 05:00 Basic Metabolic Panel [CHEM] IN AM 01/20/22 05:00 Basic Metabolic Panel [CHEM] IN AM Labs on day of discharge: 01/17/22 11:08: POC Glucose 178 01/17/22 06:15: PHA Creatinine Clear 42.00, Sodium 137, Potassium 3.5, Chloride 107, Carbon Dioxide 21.5 L, Anion Gap 12.0, BUN 24 H, Creatinine 1.53 H, Est GFR ( Amer) 55, Est GFR (Non-Af Amer) 45, Glucose 142 H, Calcium 9.0 01/17/22 05:55: POC Glucose 137 01/16/22 20:21: POC Glucose 106, POC Glucose Comment Glu2: cleaned meter 01/16/22 17:36: Total Creatine Kinase 92, CK-MB (CK-2) 3.0, CK-MB (CK-2) Rel Index 3.2 H, Troponin I High Sens 525 H* 01/16/22 15:13: POC Glucose 116 Exam Physical Exam Vital Signs: Temp Pulse Resp BP Pulse Ox O2 Del Method O2 Flow Rate 97.4 F L 60 18 118/68 95 Room Air 2 01/17/22 11:05 01/17/22 11:22 01/17/22 11:05 01/17/22 11:22 01/17/22 11:05 01/17/22 11:05 01/15/22 15:23 Discharge Plan Discharge Plan Patient Disposition: Home Activity: Ambulate as Tolerated Comment: Please see cardiac cath dc instructions for activity restrictions. Diet: Diabetic Additional Instructions: Monitor glucose levels as before. DISCHARGE INSTRUCTIONS FOR CARDIAC PRODUCTION RECORDER PHONE NUMBER OF YOUR PHYSICIAN: [phone] PROCEDURE: Heart Cath The following instructions have been prepared to help you care for yourself, or be cared for upon your return home. 1. You were given conscious sedation. Do not operate a vehicle, power tools, make important decisions, or drink alcohol for 24 hours. You might be drowsy or light headed. Return to the Emergency Room if you have trouble breathing, walking or nausea and vomiting. 2. FOR BLEEDING: Apply continuous pressure to the site and call 911. 3. Operative Site Care: Keep the dressing clean and dry. You may change the dressing only if soiled or wet. You may remove the dressing the following morning. You may wash over the puncture site in the shower. If the puncture site is at the wrist no soaking for 3 days. Some bruising or slight swelling may be present. -Signs of infection are redness, warmth, swelling, getting more sore, colored drainage, fever or chills. -Should the arm or leg become cold, numb, blue or white, call the coal pulverizing operator immediately. 4. ACTIVITY: You are advised to go directly home from the hospital. Restrict your activities for the rest of the day. Resume light or normal activities tomorrow. Do not engage in any activity that will stress the puncture site. Avoid heavy lifting (over 15 lbs.), straining or bending at the catheter site for 48 hours after discharge. If the puncture site is at the wrist do not manipulate wrist for 24 hours and no lifting more than 3 lbs for 3 days. 5. DIET:You may eat your regular diet when you desire. 6. MEDICATIONS: Resume your daily prescription schedule. Prescriptions may be sent with you if needed. Use as directed. When taking pain medications, you may experience dizziness or drowsiness. Do not drink alcohol or drive when taking pain medications. 7. If you should experience episodes of angina e.g. chest discomfort, heaviness, tightness, pressure, burning, with or without radiation to the neck, jaws, arms, or back- Use 1 Nitrostat under your tongue every 5-10 minutes, and up to 3 tablets. If no relief- Call 911 and go to the nearest Emergency Room. -Notify the office for recurrent angina, chest pain or other concerns. You may NOT drive yourself home! Follow the medication instructions provided on your discharge. If the dosages and instructions on this sheet differ from the dosage and instructions on the bottle, follow the instructions on the bottle. [facility] is not responsible for incorrect prescription information provided by the patient during their visit. Do not stop your medications without consulting your health care provider. Please take the list with you to your next doctor's appointment. Prescriptions: New carvedilol 25 mg Tablet 25 mg PO BID.WITH.MEALS 30 Days Qty: 60 12RF isosorbide mononitrate 60 mg Tablet Extended Release 24 Hr 60 mg PO BID 30 Days Qty: 60 12RF Continued lisinopril 20 mg Tablet 20 mg PO Q6PM amlodipine 5 mg Tablet 10 mg PO DAILY Hold Instructions: until seen by your primary care provider alprazolam 0.5 mg Tablet 0.5 mg PO TID aspirin 81 mg Tablet 81 mg PO DAILY lovastatin 20 mg Tablet 40 mg PO QPM Jardiance 10 mg Tablet 10 mg PO DAILY pantoprazole 40 mg tablet,delayed release (DR/EC) 40 mg PO DAILY Label Comments: TAKE 1 TABLET BY MOUTH EVERYDAY ON AN EMPTY STOMACH FOLLOWED IN 30 MINUTES BY BREAKFAST Ozempic 0.25 mg or 0.5 mg(2 mg/1.5 mL) Pen Injector 0.5 mg SUBCUT QWEEK Rx Instructions: Saturday multivitamin Tablet 1 tab PO DAILY cyanocobalamin (vitamin B-12) [Vitamin B-12] 1,000 mcg Tablet 1,000 mcg PO DAILY clopidogrel 75 mg Tablet 75 mg PO DAILY loratadine 10 mg Tablet 10 mg PO DAILY insulin aspart U-100 [Novolog Flexpen U-100 Insulin] 100 unit/mL (3 mL) Insulin Pen 1 unit subcut TID Rx Instructions: 5 units at times depending on blood sugar Discontinued carvedilol 25 mg Tablet 12.5 mg PO BID isosorbide mononitrate 60 mg Tablet Extended Release 24 Hr 60 mg PO DAILY Follow Up: Harley Crespo DO [Primary Care Provider] - 01/23/22 9:00 am (You have been scheduled for a follow up appointment for the following date and time, please call to reschedule if needed.) Porfirio Fair APRN [Nurse Practitioner] - 01/24/22 4:00 pm Documented By: Gagan Shahid DO 01/17/22 14 57 Signed By: <Electronically signed by Gagna Shahid DO> 01/17/22 1504 [facility] Work Phone: 1(474) 860-830610-19-2022 Progress note Author Luis Alfredo Borges [facility] January 17, 2022 11:47am Note Date/Time January 17, 2022 1 1:47am [facility] [address] [place] [address] Cardiology Progress Note Signed Patient: Lani Lizama MR#: [id number] : 1950 Acct:[id number] Age/Sex: 71 / M Adm Date: 2 Loc: 3T Room: [address] [place] [address] Type: ADM IN Attending Dr: Gagan Shahid DO Copies to: ~ Date of Service: 01/17/2022 Subjective Principal diagnosis: Occlusive coronary heart disease, status post CAB, PCI Interval history: Mr. Lizama is doing well this morning. He has had no problems since yesterday's cardiac catheterization. There are no problems with his left radial access site. Patient is currently having no anginal symptoms either at rest or with ambulation. Lexiscan nuclear myocardial perfusion study done this morning showsno high risk findings. There is primarily basal inferolateral scar with mild kelsey-infarct reversibility. Sum difference score is 5. There is no evidence ofhigh risk ischemic myocardial territory. Patient feels ready to be discharged to home today and is requesting same. Exam Physical Exam Vital Signs: Temp Pulse Resp BP Pulse Ox O2 Del Method O2 Flow Rate 97.4 F L 60 18 118/68 95 Room Air 2 01/17/22 11:01 01/17/22 11:22 01/17/22 11:01 01/17/22 11:22 01/17/22 11:01 01/17/22 11:01 01/15/22 15:23 Const General: cooperative, healthy appearing, comfortable and no acute distress Nutritional Appearance: average body habitus Orientation: alert, awake and oriented x3 HEENT Head: normal to inspection Face and sinus: face symmetric Mouth: moist mucous membranes Teeth and gingiva: dentition normal Eyes Conjunctivae: conjunctivae normal Sclera: sclerae normal Pupils: PERRL and normal by confrontation EOM: EOM intact bilaterally Direct ophthalmoscopy: no photophobia Neck Neck: full ROM, no lymphadenopathy and supple Neck mass: No Thyroid: thyroid normal Carotids: normal carotid upstroke Lymphatic: no lymphadenopathy noted Chest Chest palpation & inspection: normal inspection of the chest Resp Effort & Inspection: normal respiratory effort, able to speak in complete sentences and symmetric chest movement Auscultation: clear to auscultation bilaterally Cardio Jugular venous pressure: no JVD Palpation: normal PMI Rate: regular rate Rhythm: abnormal rhythm with ectopic beats Heart Sounds: S1 normal, S2 normal and gallop S4 gallop Pulses: radial pulses present, posterior tibial pulses present and dorsalis pedis present GI Inspection: normal to inspection Palpation: soft and no hepatosplenomegaly Auscultation: normal bowel sounds Skin General: no rashes or lesions noted Trauma: no lacerations or abrasions Wounds: no wounds Neuro General: patient alert, patient awake, patient oriented x3, moves all extremities and no focal motor deficits Cranial Nerves: CN's II-XII intact bilaterally Cognition: normal cognition Speech: speech normal Motor: muscle tone normal throughout Sensory Exam: no sensory deficits noted Extrem General: no clubbing, cyanosis or edema Psych Appearance: grossly normal Mental Status: mental status grossly normal Mood: congruent mood Affect: normal affect Attitude: cooperative Thought Process: normal Thought Content: normal Insight: insight good Judgment: judgment good Objective Labs CBC & Chem 7: 01/16/22 05:48 01/17/22 06:15 Labs: Laboratory Results - last 24 hr 01/16/22 01/16/22 01/16/22 15:13 17:36 20:21 PHA Creatinine Clear Sodium Potassium Chloride Carbon Dioxide Anion Gap BUN Creatinine Est GFR ( Amer) Est GFR (Non-Af Amer) Glucose POC Glucose 116 106 POC Glucose Comment Glu2: cleaned meter Calcium Total Creatine Kinase 92 CK-MB (CK-2) 3.0 CK-MB (CK-2) Rel Index 3.2 H Troponin I High Sens 525 H* 01/17/22 01/17/22 05:55 06:15 PHA Creatinine Clear 42.00 Sodium 137 Potassium 3.5 Chloride 107 Carbon Dioxide 21.5 L Anion Gap 12.0 BUN 24 H Creatinine 1.53 H Est GFR ( Amer) 55 Est GFR (Non-Af Amer) 45 Glucose 142 H POC Glucose 137 POC Glucose Comment Calcium 9.0 Total Creatine Kinase CK-MB (CK-2) CK-MB (CK-2) Rel Index Troponin I High Sens A&P - Cardiology (1) Non-ST elevation myocardial infarction (NSTEMI), initial care episode: Assessment/Problem Details: Likely a very small type I event primarily for microvascular CHD. Yesterday's heart catheterization demonstrated for widely patent grafts with no targets for PCI. There is also notable worsening of the patient's [place] occlusive coronaryheart disease particularly in the microcirculation Code(s): I21.4 - Non-ST elevation (NSTEMI) myocardial infarction Status: Acute Plan: Patient is stable and ready for discharge to home today with the following recommendations: 1. We have increased antianginal medical regimen as follows: Carvedilol to 25 mg twice daily, isosorbide mononitrate to 60 mg twice daily 2. Otherwise continue current medical therapy including dual antiplatelet therapy with aspirin 81 mg and clopidogrel 75 mg daily 3. 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 We willschedule him 1 follow-up visit in [facility] for left wrist check and also for counseling and reinforcement/referral to phase 2 monitored cardiac rehabilitation which the patient desires to perform in [place]. 4. Instructed the patient that he can return to work next Saturday. Otherwise nolifting greater than equal to 10 pounds for 5 days with the left arm 5. Aggressive cardiac risk factor modification and medical management of occlusive atherosclerotic cardiovascular disease is also recommended. Plan Thank you very much for this kind consultation and for allowing me to participate the care of this very pleasant patient Time spent with patient Time Spent With Patient (min): 30 Documented By: Luis Alfredo Borges MD 01/17/221142 Signed By: <Electronically signed by Luis Alfredo Borges MD> 01/17/22 114 [facility] Work Phone: 1(759) 495-993110-18-2022 Progress note Author Gagan Shahid [facility] January 16, 2022 4:09pm Note Date/Time January 16, 2022 4 :09pm [facility] [address] [place] [address] Hospitalist Progress Note Signed Patient: Lani Lizama MR#: [id number] : 1950 Acct:[id number] Age/Sex: 71 / M Adm Date: 2 Loc: Room: [address] [place] [address] Type: ADM IN Attending Dr: Gagan Shahid DO Copies to: ~ Date of Service: 01/16/2022 Subjective Subjective Narrative: Was seen and examined post catheterization today. No complaints at this time. Physical Examination: GENERAL APPEARANCE: Alert, up in bed AAOx3 HEENT: NCAT, MMM NECK: Neck soft w/o masses, no JVD CARDIAC: Normal S1 and S2. No S3, S4 or murmurs. LUNGS: Clear to auscultation bilaterally. no wheeze/rhonchi/rales ABDOMEN: Positive bowel sounds. Soft, nontender. No guarding or signs of an acute abdomen MUSCULOSKELETAL: No joint erythema or tenderness. EXTREMITIES: No clubbing, cyanosis or edema PSYCHIATRIC: Appropriate mood and affect Assessment and plan: 1. Chest pain rule out ACS Troponins have down trended. Underwent catheterization earlier today with Dr. Borges. Nuclear scan tomorrow for evaluation of reversible perfusion defects. 2. Shortness of breath Appears to be under better control. Continue antibiotics for 1 more day and then discontinue. Exam Physical Exam Vital Signs: Temp Pulse Resp BP Pulse Ox O2 Del Method O2 Flow Rate 98.0 F 49 L 16 113/59 L 93 L Room Air 2 01/16/22 14:55 01/16/22 14:55 01/16/22 14:55 01/16/22 14:55 01/16/22 14:55 01/16/22 14:55 01/15/22 15:23 Objective Lab Results CBC & Chem 7: 01/16/22 05:48 01/16/22 05:48 Meds Allergies and Active Meds Allergies No Known Allergies Allergy (Verified 06/22/20 04:18) Active Meds: Active Medications Generic Name Dose Route Start Last Admin Trade Name Freq PRN Reason Stop Dose Admin Acetaminophen 650 mg 01/15/22 17:23 Acetaminophen 325 Mg Tablet PO 01/15/23 17:22 Q6HR PRN Pain Scale 1 - 3 or fever Alprazolam 0.5 mg 01/15/22 22:00 01/16/22 14:43 Alprazolam 0.5 Mg Tablet PO 07/14/22 21:59 0.5 mg TID RICARDA Administration Amlodipine Besylate 10 mg 01/16/22 09:00 01/16/22 08:49 Amlodipine 10 Mg Tablet PO 01/16/23 08:59 10 mg DAILY RICARDA Administration Aspirin 81 mg 01/16/22 09:00 01/16/22 08:49 Aspirin [address] HERNADEZ 01/16/23 08:59 81 mg DAILY RICARDA Administration Atorvastatin Calcium 10 mg 01/15/22 21:00 01/15/22 21:11 Atorvastatin 10 Mg Tablet PO 01/15/23 20:59 10 mg QPM RICARDA Administration Canagliflozin 100 mg 01/16/22 09:00 01/16/22 08:49 Canagliflozin 100 Mg Tablet PO 01/16/23 08:59 100 mg DAILY RICARDA Administration Carvedilol 25 mg 01/17/22 08:00 Carvedilol 25 Mg Tablet PO 01/17/23 07:59 BID.WITH.MEALS RICARDA Clopidogrel Bisulfate 75 mg 01/16/22 09:00 01/16/22 08:49 Clopidogrel Bisulfate 75 Mg Tablet PO 01/16/23 08:59 75 mg DAILY RICARDA Administration Cyanocobalamin 1,000 mcg 01/16/22 09:00 01/16/22 08:49 Cyanocobalamin 1,000 Mcg Tablet PO 01/16/23 08:59 1,000 mcg DAILY RICARDA Administration Magnesium Sulfate 2 gm in 50 mls @ 25 mls/hr 01/15/22 17:24 Magnesium Sulf 2gm-*Swfi* IV 01/15/23 17:23 DAILY PRN Magnesium < 1.6 Levofloxacin 750 mg in 150 mls @ 100 mls/hr 01/17/22 10:00 Levaquin IV Q48H RICARDA Sodium Chloride 1,000 mls @ 100 mls/hr 01/16/22 10:00 01/16/22 11:15 0.9% Sodium Chloride 1,000 Ml IV 01/16/23 09:59 100 mls/hr .Q10H RICARDA Administration Sodium Chloride 1,000 mls @ 100 mls/hr 01/16/22 14:30 01/16/22 14:39 0.9% Sodium Chloride 1,000 Ml IV 01/17/22 00:29 100 mls/hr .Q10H RICARDA Administration Insulin Aspart 0 units 01/15/22 22:00 01/16/22 16:06 Insulin Aspart 300 Units/3 Ml Insuln.Pen SUBCUT 01/15/23 21:59 Not Given TID.WM.HS RICARDA Protocol Isosorbide Mononitrate 60 mg 01/16/22 21:00 Isosorbide Mononitrate 24hr Er 60 Mg Tab.Er.24h PO 01/16/23 20:59 BID RICARDA Lisinopril 20 mg 01/15/22 18:00 01/15/22 18:28 Lisinopril 20 Mg Tablet PO 01/15/23 17:59 20 mg DAILY@1800 RICARDA Administration Loratadine 10 mg 01/16/22 09:00 01/16/22 08:49 Loratadine 10 Mg Tablet PO 01/16/23 08:59 10 mg DAILY RICARDA Administration Miscellaneous Information 1 each 01/16/22 14:16 Consult To Pharmacy MISCELLANE 01/16/23 14:15 .PHACONSULT PRN ZZ.Pharmacy Consult Protocol Multivitamins 1 tab 01/16/22 09:00 01/16/22 08:49 Multivitamin 1 Tab Tablet PO 01/16/23 08:59 1 tab DAILY RICARDA Administration Omeprazole 20 mg 01/16/22 09:00 01/16/22 08:49 Omeprazole 20 Mg Capsule.Dr PO 01/16/23 08:59 20 mg DAILY RICARDA Administration Potassium Chloride 40 meq 01/15/22 17:24 Potassium Chloride Er 20 Meq Tab.Er.Prt PO 01/15/23 17:23 DAILY PRN Hypokalemia Potassium Chloride 40 meq 01/16/22 09:57 Potassium Chloride Er 20 Meq Tab.Er.Prt PO STAT PRN Hypokalemia Regadenoson 0.4 mg 01/17/22 10:00 Regadenoson 0.4 Mg/5 Ml Syringe IV-PUSH 01/17/22 10:01 ONCE ONE Sodium Chloride 0 ml 01/16/22 09:57 Sodium Chloride 0.9 % 10 Ml Syringe IV-PUSH 01/16/23 09:56 PRN PRN Flush Sodium Chloride 0 ml 01/17/22 10:00 Sodium Chloride 0.9 % 10 Ml Syringe IV-PUSH 01/17/23 09:59 PRN PRN Flush Documented By: Gagan Shahid DO 01/16/22 16 07 Signed By: <Electronically signed by Gagan Shahid DO> 01/16/22 1609 [facility] Work Phone: 1(442) 281-495810-18-2022 [facility] Consult note Author Luis Alfredo Borges [facility] January 16, 2022 10:24am Note Date/Time January 16, 2022 1 0:24am [facility] [address] [place] [address] Cardiology Consult Note Signed Patient: Lani Lizama MR#: [id number] : 1950 Acct:[id number] Age/Sex: 71 / M Adm Date: 2 Loc: Room: [address] [place] [address] Type: ADM IN Attending Dr: Gagan Shahid DO Copies to: DO Gagan Hudson DO Stephen M Tann, MD~ Cardiology HPI History of Present Illness Consult Date: 01/16/22 Reason for Consult: Chest pain, shortness of breath, known coronary heart disease status post CAB and PCI HPI: Mr. Lizama is a 71 year old male with a known history of CABG x5 done remotely as well as history of PCI done here [facility] per Dr. Saldaña in May 2020 who was in his normal state of health until the last few weeks when he has begun to notice increasing episodes of chest discomfort and shortness of breath reminiscent of prior anginal symptoms. The patient states that over the last few days he has had to take nitroglycerin for relief of the chest discomfort which she has not had to do since prior prior to his stent in 2020. He had a particularly severe episode of shortness of breath that woke himfrom his sleep last night. As such he activated EMS and was taken to [facility] emergency department. There the patient was treated for acute coronarysyndrome. EKG showed no acute ischemic changes or current of injury. Patient was anticoagulated with IV unfractionated heparin and transferred to our facility for further management. Patient has been admitted by our inpatient hospitalist medicine service. He is on full medical treatment for acute coronary syndrome. He is currently chest pain- free. Troponin is peaked at 1280. I am now consulted for further cardiac evaluation and management. Review of Systems Review of Systems All other systems reviewed & are negative unless noted below or in HPI PMFSH Vaccinated for COVID-19?: Yes Medical History (Updated 07/10/21 @ 10:30 by Shannon Escobar DO) Congestive heart failure (CHF) COVID-19 DM2 (diabetes mellitus, type 2) GERD (gastroesophageal reflux disease) HLD (hyperlipidemia) HTN (hypertension) Myocardial infarct Surgical History H/O heart artery stent X6 Hx of coronary artery bypass graft Family History Other Heart disease Social History Smoking Status: Former smoker Tobacco Type: cigarettes Substance Use Type: None Meds Medications and Allergies Allergies No Known Allergies Allergy (Verified 06/22/20 04:18) Home Medications alprazolam 0.5 mg tablet 0.5 mg PO TID 06/22/20 [History Confirmed 01/15/22] amlodipine 5 mg tablet 10 mg PO DAILY 06/22/20 [History Confirmed 01/15/22] aspirin 81 mg tablet 81 mg PO DAILY 06/22/20 [History Confirmed 01/15/22] carvedilol 25 mg tablet 12.5 mg PO BID 06/22/20 [History Confirmed 01/15/22] empagliflozin 10 mg tablet (Jardiance) 10 mg PO DAILY 06/22/20 [History Confirmed 01/15/22] isosorbide mononitrate 60 mg tablet,extended release 24 hr 60 mg PO DAILY 06/22/20 [History Confirmed 01/15/22] lisinopril 20 mg tablet 20 mg PO Q6PM 06/22/20 [History Confirmed 01/15/22] lovastatin 20 mg tablet 40 mg PO QPM 06/22/20 [History Confirmed 01/15/22] pantoprazole 40 mg tablet,delayed release 40 mg PO DAILY 07/10/21 [History Confirmed 01/15/22] semaglutide 0.25 mg or 0.5 mg (2 mg/1.5 mL) subcutaneous pen injector (Ozempic) 0.5 mg subcut QWEEK 07/10/21 [History Confirmed 01/15/22] clopidogrel 75 mg tablet 75 mg PO DAILY 01/15/22 [History Confirmed 01/15/22] cyanocobalamin (vitamin B-12) 1,000 mcg tablet (Vitamin B-12) 1,000 mcg PO DAILY01/15/22 [History Confirmed 01/15/22] insulin aspart U-100 100 unit/mL (3 mL) subcutaneous pen (Novolog Flexpen U-100 Insulin aspart) 1 unit subcut TID 01/15/22 [History Confirmed 01/15/22] loratadine 10 mg tablet 10 mg PO DAILY 01/15/22 [History Confirmed 01/15/22] multivitamin 1 tab PO DAILY 01/15/22 [History Confirmed 01/15/22] Exam Physical Exam Vital Signs: Temp Pulse Resp BP Pulse Ox O2 Del Method O2 Flow Rate 97.8 F 59 L 22 156/66 H 96 Room Air 2 01/15/22 19:55 01/16/22 05:25 01/16/22 05:25 01/16/22 05:25 01/16/22 05:25 01/16/22 05:25 01/15/22 15:23 Const General: cooperative, healthy appearing, comfortable and no acute distress Nutritional Appearance: average body habitus Orientation: alert, awake and oriented x3 HEENT Head: normal to inspection Face and sinus: face symmetric Mouth: moist mucous membranes Teeth and gingiva: dentition normal Eyes Conjunctivae: conjunctivae normal Sclera: sclerae normal Pupils: PERRL and normal by confrontation EOM: EOM intact bilaterally Direct ophthalmoscopy: no photophobia Neck Neck: full ROM, no lymphadenopathy and supple Neck mass: No Thyroid: thyroid normal Carotids: normal carotid upstroke Lymphatic: no lymphadenopathy noted Chest Chest palpation & inspection: normal inspection of the chest Resp Effort & Inspection: normal respiratory effort, able to speak in complete sentences and symmetric chest movement Auscultation: clear to auscultation bilaterally Cardio Jugular venous pressure: no JVD Palpation: normal PMI Rate: regular rate Rhythm: abnormal rhythm with ectopic beats Heart Sounds: S1 normal, S2 normal and gallop S4 gallop Pulses: radial pulses present, posterior tibial pulses present and dorsalis pedis present GI Inspection: normal to inspection Palpation: soft and no hepatosplenomegaly Auscultation: normal bowel sounds Skin General: no rashes or lesions noted Trauma: no lacerations or abrasions Wounds: no wounds Neuro General: patient alert, patient awake, patient oriented x3, moves all extremities and no focal motor deficits Cranial Nerves: CN's II-XII intact bilaterally Cognition: normal cognition Speech: speech normal Motor: muscle tone normal throughout Sensory Exam: no sensory deficits noted Extrem General: no clubbing, cyanosis or edema Psych Appearance: grossly normal Mental Status: mental status grossly normal Mood: congruent mood Affect: normal affect Attitude: cooperative Thought Process: normal Thought Content: normal Insight: insight good Judgment: judgment good LISANDRA Risk Score LISANDRA Risk Score Predictor Historical: Age > 65 Years Old, 3 or more Risk Factors: FHx,HTN,elevated cholesterol,DM,active smoker, Known CAD Stenosis >/=50% and ASA use in Past 7 Days Presentation: Recent (>/=24hr) Angina and Increased Cardiac Marker Score Risk Score (0-7): 6 Results Labs CBC & CMP: 01/16/22 05:48 01/16/22 05:48 Lab results: Cardiac Enzymes 01/15/22 01/16/22 Range/Units 17:42 05:48 Total Creatine Kinase 130 101 (22-269) U/L CK-MB (CK-2) 11.9 H 5.0 (0.6-6.3) ng/mL CK-MB (CK-2) Rel Index 9.1 H 4.9 H (0.00-2.50) % CBC 01/15/22 01/16/22 Range/Units 15:00 05:48 RBC 5.07 4.90 (3.90-5.60) x10E6/uL Hgb 14.7 14.4 (13.0-17.0) g/dL Hct 44.6 43.4 (38.8-50.0) % Plt Count 193 178 (150-450) x10E3/uL Neut # (Auto) 5.6 5.6 (1.8-7.7) x10E3/uL Lymph # (Auto) 1.0 1.6 (1.00-4.8) x10E3/uL Cochran # (Auto) 0.4 0.8 (0.0-0.8) x10E3/uL Eos # (Auto) 0.1 0.2 (0.0-0.45) x10E3/uL Baso # (Auto) 0.0 0.0 (0.0-0.2) x10E3/uL Comprehensive Metabolic Panel 01/15/22 01/16/22 Range/Units 17:42 05:48 Sodium 138 (136-146) mmol/L Potassium 3.6 (3.5-5.1) mmol/L Chloride 107 (95-114) mmol/L Carbon Dioxide 21.8 L (22.0-30.0) mmol/L BUN 23 (9-23) mg/dL Creatinine 1.57 H 1.63 H (0.64-1.27) mg/dL Glucose 118 H (70-100) mg/dL Calcium 9.4 (8.2-10.2) mg/dL Intake and Output 01/15/22 01/16/22 01/16/22 23:59 07:59 15:59 Intake Total 100 / 100 50 / 50 Balance 100 / 100 50 / 50 Intake: Oral 100 / 100 50 / 50 Other: # Unmeasured Voids 2 2 Weight 77 kg Date of Last Bowel Movement 01/15/22 Patient Weight 01/16/22 23:59 Weight 77 kg Lab 01/15/22 01/15/22 01/16/22 15:00 23:17 05:48 PT 15.5 H 15.7 H INR 1.4 1.4 APTT 52.0 H 54.0 H 42.1 H EKG Interpretations EKG Attestation EKG: I reviewed this ECG and interpreted as documented below: Dysrhythmias Sinus rhythms and dysrhythmias: sinus rhythm Blocks, axis, hypertrophy, ST abn Repolarization changes or abnormalities: nonspecific abnormality, ST segment, and/or T wave TN, pacemaker, normal Normal tracing: no change compared to previous tracing A&P - Cardiology (1) Non-ST elevation myocardial infarction (NSTEMI), initial care episode: Assessment/Problem Details: Positive and increasing serum troponin in the setting of known coronary heart disease status post remote CABG x5 as well as PCI done approximately 18 months ago. Patient is currently chest pain-free. LISANDRA risk score is 6. Plan: Maintain n.p.o. and will plan for cardiac catheterization today. Further diagnostic and therapeutic recommendations be forthcoming based on the results of the patient's cardiac catheterization. Code(s): I21.4 - Non-ST elevation (NSTEMI) myocardial infarction Plan Thank you very much for this kind consultation and for allowing me to participate the care of this very pleasant patient Documented By: Luis Alfredo Borges MD 01/16/22 1018 Signed By: <Electronically signed by Luis Alfredo Borges MD> 01/16/22 1024 [facility] Work Phone: 1(329) 284-858210-17-2022 History and physical note Author Gagan Shahid [facility] January 15, 2022 6:56pm Note Date/Time January 15, 2022 6 :02pm [facility] [address] [place] [address] Hospitalist H&P Signed Patient: Lani Lizama MR#: [id number] : 1950 Acct:[id number] Age/Sex: 71 / M Adm Date: 2 Loc: Room: [address] [place] [address] Type: ADM IN Attending Dr: Gagan Shahid DO Copies to: DO Gagan Hudson, ~ HPI DATE OF EXAMINATION: 01/15/22 CHIEF COMPLAINT: Chest pain HISTORY OF PRESENT ILLNESS: This patient is a 71-year-old male with a history of 5 vessel CABG who presentedto outside facility emergency department earlier today with a chief complaint ofchest pain and shortness of breath. His work-up there revealed mild elevation in his troponin opponent level at 17 pg/mL however this continually up trended on sequential readings peaking at 1786. His EKG revealed T wave inversion in the inferior leads. Subsequently patient was started on a heparin drip as well as aspirin. A CT of the chest revealed an infiltrate prompting initiation of Levaquin. Brain atretic peptide level was also elevated. He was provided sublingual nitroglycerin. A 1.7 cm rounded area suspicious for mass was noted in the right hilar region with mediastinal lymphadenopathy. Urinalysis and laboratory evaluation were essentially unremarkable. COVID-19 testing was negative. INR is 1.1. Lactic acid level 0.8 within normal limits. Mild elevation in serum creatinine noted with a level of 1.51. He was provided a dose of 60 mg IV Lasix in addition to these therapies as well as a shot of 40 mgIV Protonix x1. Given the need for cardiovascular evaluation [facility] and cardiology consultation. Upon arrival to this facility the patient is hemodynamically stable and not experiencing any chest pain. He states that his started early in the morning atapproximately 2 AM and he thought this was indigestion however this continually worsened prompting his presentation to outside ED. He denies any fevers, chillsor cough but does endorse dyspnea on exertion for the past few days. Physical Examination: GENERAL APPEARANCE: Alert, up in bed AAOx3 HEENT: NCAT, MMM NECK: Neck soft w/o masses, no JVD CARDIAC: Normal S1 and S2. No S3, S4 or murmurs. LUNGS: Clear to auscultation bilaterally. no wheeze/rhonchi/rales ABDOMEN: Positive bowel sounds. Soft, nontender. No guarding or signs of an acute abdomen MUSCULOSKELETAL: No joint erythema or tenderness. EXTREMITIES: No clubbing, cyanosis or edema PSYCHIATRIC: Appropriate mood and affect Assessment and plan: 1. Chest pain rule out ACS Troponins have peaked at roughly 1700 on high-sensitivity scale. They have since down trended on repeat readings here. We will continue to trend these overnight. Consult to cardiology for further evaluation. At this time is difficult to ascertain whether or not this is a true event versus a type II myocardial infarction. He reports having had a cardiac stent here 2 years ago and was told that he has a semioccluded smaller artery that could be problematicin the future. At this time he has no signs of ongoing worsening ischemia both clinically nor diagnostically. 2. Shortness of breath Appears to be dyspnea on exertion. Likely has baseline congestive heart failure. He has a 5 vessel CABG in his history 27 years ago. At this time given the consolidation reported on chest CT we will continue Levaquin however it is possible this is a viral syndrome. Continue to monitor and likely discharge or provide short course of antibiotics going forward. Review of Systems Review of Systems All other systems reviewed & are negative unless noted below or in HPI PMFSH Vaccinated for COVID-19?: Yes Medical History (Updated 07/10/21 @ 10:30 by Shannon Escobar DO) Congestive heart failure (CHF) COVID-19 DM2 (diabetes mellitus, type 2) GERD (gastroesophageal reflux disease) HLD (hyperlipidemia) HTN (hypertension) Myocardial infarct Surgical History H/O heart artery stent X6 Hx of coronary artery bypass graft Family History Other Heart disease Social History Smoking Status: Former smoker Tobacco Type: cigarettes Substance Use Type: None Meds Medications and Allergies Allergies No Known Allergies Allergy (Verified 06/22/20 04:18) Home Medications alprazolam 0.5 mg tablet 0.5 mg PO TID 06/22/20 [History Confirmed 01/15/22] amlodipine 5 mg tablet 5 mg PO DAILY 06/22/20 [History Confirmed 01/15/22] aspirin 81 mg tablet 81 mg PO DAILY 06/22/20 [History Confirmed 01/15/22] carvedilol 25 mg tablet 12.5 mg PO BID 06/22/20 [History Confirmed 01/15/22] empagliflozin 10 mg tablet (Jardiance) 10 mg PO DAILY 06/22/20 [History Confirmed 01/15/22] isosorbide mononitrate 60 mg tablet,extended release 24 hr 60 mg PO DAILY 06/22/20 [History Confirmed 01/15/22] lisinopril 20 mg tablet 20 mg PO Q6PM 06/22/20 [History Confirmed 01/15/22] lovastatin 20 mg tablet 40 mg PO QPM 06/22/20 [History Confirmed 01/15/22] pantoprazole 40 mg tablet,delayed release 40 mg PO DAILY 07/10/21 [History Confirmed 01/15/22] semaglutide 0.25 mg or 0.5 mg (2 mg/1.5 mL) subcutaneous pen injector (Ozempic) 0.5 mg subcut QWEEK 07/10/21 [History Confirmed 01/15/22] clopidogrel 75 mg tablet 75 mg PO DAILY 01/15/22 [History Confirmed 01/15/22] cyanocobalamin (vitamin B-12) 1,000 mcg tablet (Vitamin B-12) 1,000 mcg PO DAILY01/15/22 [History Confirmed 01/15/22] famotidine 40 mg tablet 40 mg PO BID 01/15/22 [History Confirmed 01/15/22] insulin aspart U-100 100 unit/mL (3 mL) subcutaneous pen (Novolog Flexpen U-100 Insulin aspart) 1 unit subcut TID 01/15/22 [History Confirmed 01/15/22] loratadine 10 mg tablet 10 mg PO DAILY 01/15/22 [History Confirmed 01/15/22] multivitamin 1 tab PO DAILY 01/15/22 [History Confirmed 01/15/22] Exam Physical Exam Vital Signs: Temp Pulse Resp BP Pulse Ox O2 Del Method O2 Flow Rate 97.8 F 52 L 16 154/65 H 98 Nasal Cannula 2 01/15/22 15:23 01/15/22 15:23 01/15/22 15:23 01/15/22 15:23 01/15/22 15:23 01/15/22 15:23 01/15/22 15:23 Results Lab Results Labs: Laboratory Last Values Corrected WBC 7.2 X10E3/uL (4.1-10.5) 01/15/22 15:00 Uncorrected WBC Count 7.2 x10E3/uL (4.5-11.0) 01/15/22 15:00 RBC 5.07 x10E6/uL (3.90-5.60) 01/15/22 15:00 Hgb 14.7 g/dL (13.0-17.0) 01/15/22 15:00 Hct 44.6 % (38.8-50.0) 01/15/22 15:00 MCV 88.0 fl (83.5-101) 01/15/22 15:00 MCH 29.0 pg (27.5-35.2) 01/15/22 15:00 MCHC 33.0 g/dL (32.5-35.6) 01/15/22 15:00 RDW 14.7 % (12.0-14.8) 01/15/22 15:00 Plt Count 193 x10E3/uL (150-450) 01/15/22 15:00 MPV 8.2 fl (6.6-10.1) 01/15/22 15:00 Neut % (Auto) 78.7 % (.) 01/15/22 15:00 Lymph % (Auto) 13.8 % (.) 01/15/22 15:00 Cochran % (Auto) 6.1 % (.) 01/15/22 15:00 Eos % (Auto) 0.9 % (.) 01/15/22 15:00 Baso % (Auto) 0.5 % (.) 01/15/22 15:00 Neut # (Auto) 5.6 x10E3/uL (1.8-7.7) 01/15/22 15:00 Lymph # (Auto) 1.0 x10E3/uL (1.00-4.8) 01/15/22 15:00 Cochran # (Auto) 0.4 x10E3/uL (0.0-0.8) 01/15/22 15:00 Eos # (Auto) 0.1 x10E3/uL (0.0-0.45) 01/15/22 15:00 Baso # (Auto) 0.0 x10E3/uL (0.0-0.2) 01/15/22 15:00 Nucleated RBC % (auto) 0.2 % (0-0.5) 01/15/22 15:00 PT 15.5 Seconds (9.0-12.9) H 01/15/22 15:00 INR 1.4 01/15/22 15:00 APTT 52.0 Seconds (25.1-36.5) H 01/15/22 15:00 Troponin I High Sens 1378 pg/mL (0-20) H* 01/15/22 15:00 Documented By: Gagan Shahid DO 01/15/22 18 Signed By: <Electronically signed by Gagan Shahid DO> 01/15/22 [id number] [facility] Work Phone: 1(364) 373-633409-19-2022 Evaluation note* Encounter Date Diagnosis Assessment Notes Treatment Notes Treatment Clinical Notes Nov, Dietary counseling and surveillance (ICD-10 - Z71.3) Eat a diet rich in fruits and vegetables material was printed Nov, Type 2 diabetes mellitus with diabetic chronic kidney disease (ICD-10 - E11.22) Type 2 diabetes material was printed 1. Controlled, a Type 2 diabetes with A1c of 6.2% 2. Blood glucose levels above improved. According to [employer] cgm download 12/05/2021- 2: Average glucose 119. Above 250-0%, >180- 7%, 70-180-87%, <70-6%, <54-0%. CV 30%. Reviewed download with pt, noted incidence of hypoglycemia nocturnal/meal to meal will modify basal/bolus insulin dosing- see above. Reviewed with pt how to titrate basal/bolus insulin according to fasting am/ac supper and meal to meal glucose pattern. Pt verbalizes understanding. If gfr drops < 25 may need to consider stopping jardiance. 3. Patient is alert, oriented and receptive to making changes or counseling. Notes: Seen for an assessment of current glucose pattern, changes in treatment plan, with this time spent in counseling and coordination of care related to diabetes, risks, and benefits of treatment, medications, and side effects. TOPICS REVIEWED: 1. Time was spent reviewing: a. Basic concepts of diabetes, progressive beta cell , concepts of basal/bolus/corre ctive insulin requirements. Basal: The goal is fasting blood glucose of 90-130mg. IF fasting blood glucose starts to run under 100mg 3x's/ week, decrease dose by 10%. Bolus: The goal is to hold the blood glucose level steady meal to meal. If pt. is going to have increased physical activity after a meal, decrease the schedule meal dose prior to the activity by 30-50%. If pt. skips a meal do not take this dose. Correction: The goal is to correct an elevated glucose back into the 100-150mg range b. Nutrition: Concepts of healthy diet, encouraged to decrease saturated fat in diet and increase non-starchy vegetables and fruits in diet. BMI: Pt. needs to select one small change to decrease caloric intake or increase physical activity to help decrease weight. c. Correct treatment of hypoglycemia, carry a glucose source at all times on your person, in vehicles, and at bedside. Can use glucose tablets/4, four ounces of pop or juice equal to 15 G of carbohydrate. Blood glucose should be 100 mg/dl or higher when driving. d. ADA glucose goals for age and medical complexity reviewed e. Patient questions addressed 2. Activity/exercise : Encouraged to start any form of physical activity. Start low level and increase slowly to a minimal goal of 150 minutes/week. Limit activity to what is allowed by other issues such as cardiac, pulmonary or orthopedic restrictions. 3. Standards of care: Reminded to have an annual dilated eye exam, A1C every 3 months, urine testing for microalbumin once/year, check feet daily and report any cuts or sores that do not appear to be healing. 4. Meter: Plan to check blood glucose: Please check blood glucose levels 4 times/day. Back to back meals reveal effectiveness of bolus dosing. The blood glucose data is used to determine insulin doses and confirm symptoms for hypoglycemia and hyperglcyemia. The blood glucose data is used to determine insulin doses, and confirm symptoms for hypoglycemia and hyperglcyemia.5. [facility] Contact office if any issues or concerns with patterns of hypoglycemia, hyperglycemia, or diabetes medication issues. 6. Prescriptions: pap for bi- jardiance; Gutierrez- novolog/levemir/o zempic. Nov, HTN (hypertension) (ICD-10 - I10) About hypertension material was printed on [employer]ion[employer]. Nov, roasterman current use of insulin (ICD-10 - Z79.4) Nov, Hyperlipidemia (ICD-10 - E78.5) High cholesterol material was printed 06/2021 ldl 48- on statin. Nov, BMI 27.0-27.9,adult (ICD-10 - Z68.27) Eating healthy: tips to make it easier material was printed 22 pound weight loss from last visit, continue with weight loss efforts [employer] Other [id number] Miscellaneous Notes* Telephone Encounter - Vee Day - 10/20/2021 9:42 AM EDT New CBC order. Vee Day [facility] NoteChief Complaint consultation for cholelithiasis HPI Staff 70 year old male presents on consultation from Dr. Crespo for cholelithiasis. Reports several month history of lower abdominal pain, gas, intermittent nausea, indigestion and loose stools. Denies vomiting or heartburn. Taking Pantoprazole without relief. EGD completed 07/21 with mild gastritis. Colonoscopy completed same day- normal. RUQ US completed 08/26 with cholelithiasis. History of Present Illness 70 yo male with h/o CAD, s/p CABG and coronary stents x 6, last 1 year ago, no Plavix and baby asa,hyperlipidemia, DMII, GERD, stage 3 CKD, monoclonal gammopathy, lumbar spondylosis; referred for abdominal pain; patient reports several month h/o intermittent lower abdominal pain, right mid and RLQ, ache, crampy, increased bloating and gas; no emesis, intermittent nausea and loose stools, no blood; recent EGD and colonoscopy by Dr Escobar with mild gastritis, normal colonoscopy; recent GB US withsmall stones; personally reviewed, no GB wall thickening, no ductal dilation; patient denies fatty food intolerance; no h/o jaundice or pancreatitis; no previous abdominal operations; on baby asa and Plavix, no NSAID use; no fmhx of GI malignancy or IBD; no tobacco use. Review of Systems PHQ Score Initial Depression Screen Score: 0 ROS - Provider Constitutional: no fever, no sweats, no weight loss. Eyes: no glasses, no blurred vision, no visual loss. ENMT: no dentures, no hoarseness, no swallowing difficulties, no hearing loss, no ear infection(s),no nose bleeds. Cardiovascular: normal blood pressure, no chest pain, regular heartbeat, no heart murmur. Respiratory: no shortness of breath, no cough, no asthma, no wheezing. Gastrointestinal: yes nausea, no vomiting, yes diarrhea, yes constipation, no blood in stool, yes change in bowel habits, mild abdominal pain, no hepatitis. Genitourinary: no kidney stones, no urine infection, no dysuria. Musculoskeletal: no pain, no weakness. Skin: no changing moles, no rash, no skin lumps. Neurologic: no seizures, no epilepsy, no headache. Psychiatric: no emotional or psychiatric problem. Heme/Lymph: no bleeding problems, no anemia, no blood clots, no transfusions. Allergy/Immunologic: no swollen lymph nodes/glands, no IV drug abuse. Other: Additional ROS info: Except as noted in the above Review of Systems and in the History of Present Illness, all other systems have been reviewed and are negative or noncontributory. Physical Exam Vitals & Measurements HR: 60(Peripheral) RR: 16 BP: 138/74 HT: 170.1 cm HT: 170.1 cm WT: 83.0 kg WT: 83 kg BMI: 28.69 HEENT: normal conjunctiva, sclera clear, no scleral icterus, EOM intact, PERRLA, oral mucosa moist without lesions. Neck: trachea midline, no mass, symmetric, no thyromegaly or nodules, no adenopathy Respiratory: lungs CTA, respirations non labored. Cardiovascular: regular rate and rhythm, no murmur, no pedal edema or varicosities. Gastrointestinal: soft, non distended, mild tenderness, right mid abd no masses, no palpable hernias, diastasis recti no, no hepatosplenomegaly; normal bs Lymphatic: no cervical adenopathy, Musculoskeletal: normal gait, digits and nails without infection, nodes, cyanosis, clubbing. Skin: no rashes, no lesions, no ulcers, no subcutaneous nodules, induration. Psychiatric/Neuro: oriented to time, place, person, judgement normal, affect appropriate for age, insight intact, no focal deficits. Tests: x-rays reviewed, review of old records completed, Assessment/Plan 1. Abdominal pain, RLQ (R10.31: Right lower quadrant pain) unclear etiology, with location of pain, and patient describes swelling in that area, possible Spigelian hernia; will check abd/pelvic ct scan for further evaluation; may be medication side effect, or component of IBS; high fiber diet and dialy fiber supplement; will call patient with ct scan results; call sooner if problems/questions. 2. Nausea (R11.0: Nausea) see # 1 3. Cholelithiasis (K80.20: Calculus of gallbladder without cholecystitis without obstruction) symptoms not consistent with biliary colic, no evidence of cholecystitis or choledocholithiasis; monitor for now; patient high risk for surgical intervention due to comorbidities; no indication for cholecystectomy at this time; call with problems/questions. Follow-up No qualifying data available Problem List/Past Medical History Ongoing Abdominal pain, RLQ ASHD (arteriosclerotic heart disease) Atheroscler of [place] artery of both legs with intermit claudication BMI 28.0-28.9,adult BPH associated with nocturia Cholelithiasis Controlled diabetes mellitus with diabetic polyneuropathy, with long-term current use of insulin Diabetic retinopathy Elevated serum immunoglobulin free light chains GERD (gastroesophageal reflux disease) IBS (irritable bowel syndrome) Lumbar spondylosis MGUS (monoclonal gammopathy of unknown significance) Mixed hyperlipidemia Nausea Obesi (more content not included)...[facility] CenterComment on above: Result Comment: Electronically Signed By: FRANKIE LEMUS, Gagan Bal\Date and Time Signed: 10/17/21 12:19 [id number] Evaluation note* Encounter Date Diagnosis Assessment Notes Treatment Notes Treatment Clinical Notes Jun, Dietary counseling and surveillance (ICD-10 - Z71.3) Eat a diet rich in fruits and vegetables material was printed Jun, Type 2 diabetes mellitus with hyperglycemia (ICD-10 - E11.65) Type 2 diabetes material was printed 1. Controlled, a Type 2 diabetes with A1c of 6.9% 2. Blood glucose levels above improved. According to [employer] cgm download 07/04/2021-07/17/2021 : Average glucose 146. Above 250-2%, >180- 16%, 70-180-80%, <70-2%, <54-0%. CV 29.5%. Reviewed download with pt, he reports he had taken novolog for snack at night but stomach was upset and didn't take and had low glucose last night. Will modify meal dosing see above. If gfr drops < 25 may need to consider stopping jardiance. 3. Patient is alert, oriented and receptive to making changes or counseling. Notes: Seen for an assessment of current glucose pattern, changes in treatment plan, with this time spent in counseling and coordination of care related to diabetes, risks, and benefits of treatment, medications, and side effects. TOPICS REVIEWED: 1. Time was spent reviewing: a. Basic concepts of diabetes, progressive beta cell , concepts of basal/bolus/correc tive insulin requirements. Basal: The goal is fasting blood glucose of 90-130mg. IF fasting blood glucose starts to run under 100mg 3x's/ week, decrease dose by 10%. Bolus: The goal is to hold the blood glucose level steady meal to meal. If pt. is going to have increased physical activity after a meal, decrease the schedule meal dose prior to the activity by 30-50%. If pt. skips a meal do not take this dose. Correction: The goal is to correct an elevated glucose back into the 100-150mg range b. Nutrition: Concepts of healthy diet, encouraged to decrease saturated fat in diet and increase non-starchy vegetables and fruits in diet. BMI: Pt. needs to select one small change to decrease caloric intake or increase physical activity to help decrease weight. c. Correct treatment of hypoglycemia, carry a glucose source at all times on your person, in vehicles, and at bedside. Can use glucose tablets/4, four ounces of pop or juice equal to 15 G of carbohydrate. Blood glucose should be 100 mg/dl or higher when driving. d. ADA glucose goals for age and medical complexity reviewed e. Patient questions addressed 2. Activity/exercise: Encouraged to start any form of physical activity. Start low level and increase slowly to a minimal goal of 150 minutes/week. Limit activity to what is allowed by other issues such as cardiac, pulmonary or orthopedic restrictions. 3. Standards of care: Reminded to have an annual dilated eye exam, A1C every 3 months, urine testing for microalbumin once/year, check feet daily and report any cuts or sores that do not appear to be healing. 4. Meter: Plan to check blood glucose: Please check blood glucose levels 4 times/day. Back to back meals reveal effectiveness of bolus dosing. The blood glucose data is used to determine insulin doses and confirm symptoms for hypoglycemia and hyperglcyemia. The blood glucose data is used to determine insulin doses, and confirm symptoms for hypoglycemia and hyperglcyemia. 5. [facility] Contact office if any issues or concerns with patterns of hypoglycemia, hyperglycemia, or diabetes medication issues. 6. Prescriptions: pap for bi- jardiance; Gutierrez- novolog/levemir/oz empic. Jun, Hyperlipidemia (ICD-10 - E78.5) High cholesterol material was printed 07/2020 ldl 64 trig 207- on statin. Jun, HTN (hypertension) (ICD-10 - I10) About hypertension material was printed on [employer]. Jun, roasterman current use of insulin (ICD-10 - Z79.4) Jun, BMI 30.0-30.9,adult (ICD-10 - Z68.30) Eating healthy: tips to make it easier material was printed see above Jun, Bradycardia (ICD-10 - R00.1) asymptomatic- f/u with cardiology has upcoming apt. If symptomatic i.e. light headed notify sooner [employer] Other 03-21-2022 Evaluation note* Encounter Date Diagnosis Assessment Notes Treatment Notes Treatment Clinical Notes May, Gastro-esophageal reflux disease with esophagitis, without bleeding (ICD-10 - K21.00) [employer] Other 03-08-2022 Evaluation note* Encounter Date Diagnosis Assessment Notes Treatment Notes Treatment Clinical Notes May, Chronic kidney disease, stage 3 unspecified (ICD-10 - N18.30) He has CKD due to longstanding DM with HTN. . His b/l serum Creatinine is 1.9-2.1 mg/dl. His renal ultrasound showed unremarkable kidneys but postvoid urinary bladder volume of 103 mL. I have d/w him the importance of good DM and HTN control to slow down the progression of CKD. 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 Continue current medications. I have advised him to monitor his blood pressure at home and call office if stays above 140/90 mmHg. May, Diabetes mellitus with chronic kidney disease (ICD-10 - E11.22) His blood sugars are within the acceptable range. I have advised him to continue to follow with Viky for DM management. He takes Lisinopril and I will continue it May, Vitamin D deficiency (ICD-10 - E55.9) His MBD parameters are within the goal. [employer] Other 02-21-2022 Evaluation note* Encounter Date Diagnosis Assessment Notes Treatment Notes Treatment Clinical Notes May, Diabetes mellitus with chronic kidney disease (ICD-10 - E11.22) [employer] Other 01-10-2022 Evaluation note* Encounter Date Diagnosis Assessment Notes Treatment Notes Treatment Clinical Notes Apr, Type 2 diabetes mellitus with hyperglycemia (ICD-10 - E11.65) [employer] Other 01-10-2022 Evaluation note* Encounter Date Diagnosis Assessment Notes Treatment Notes Treatment Clinical Notes Apr, Dietary counseling and surveillance (ICD-10 - Z71.3) Eat a diet rich in fruits and vegetables material was printed Apr, Type 2 diabetes mellitus with hyperglycemia (ICD-10 - E11.65) Type 2 diabetes material was printed 1. Controlled, a Type 2 diabetes with A1c of 6.4% 2. Blood glucose levels above improved. According to [employer] cgm download 03/28/2021-04/10/19 22: Average glucose 167. Above 250-4%, >180- 28%, 70-180-68%, <70-0%, <54-0%. CV 29.7%. Reviewed download with pt, readings above target postprandial. Recommend increasing ozempic from 0.5mg to 1mg once weekly. Pt agreeable. Reviewed with pt if meal to meal glucose pattern running <100 recommend he reduce meal insulin dose by 2 units. If gfr drops < 25 may need to consider stopping jardiance. 3. Patient is alert, oriented and receptive to making changes or counseling. Notes: Seen for an assessment of current glucose pattern, changes in treatment plan, with this time spent in counseling and coordination of care related to diabetes, risks, and benefits of treatment, medications, and side effects. TOPICS REVIEWED: 1. Time was spent reviewing: a. Basic concepts of diabetes, progressive beta cell , concepts of basal/bolus/correc tive insulin requirements. Basal: The goal is fasting blood glucose of 90-130mg. IF fasting blood glucose starts to run under 100mg 3x's/ week, decrease dose by 10%. Bolus: The goal is to hold the blood glucose level steady meal to meal. If pt. is going to have increased physical activity after a meal, decrease the schedule meal dose prior to the activity by 30-50%. If pt. skips a meal do not take this dose. Correction: The goal is to correct an elevated glucose back into the 100-150mg range b. Nutrition: Concepts of healthy diet, encouraged to decrease saturated fat in diet and increase non-starchy vegetables and fruits in diet. BMI: Pt. needs to select one small change to decrease caloric intake or increase physical activity to help decrease weight. c. Correct treatment of hypoglycemia, carry a glucose source at all times on your person, in vehicles, and at bedside. Can use glucose tablets/4, four ounces of pop or juice equal to 15 G of carbohydrate. Blood glucose should be 100 mg/dl or higher when driving. d. ADA glucose goals for age and medical complexity reviewed e. Patient questions addressed 2. Activity/exercise: Encouraged to start any form of physical activity. Start low level and increase slowly to a minimal goal of 150 minutes/week. Limit activity to what is allowed by other issues such as cardiac, pulmonary or orthopedic restrictions. 3. Standards of care: Reminded to have an annual dilated eye exam, A1C every 3 months, urine testing for microalbumin once/year, check feet daily and report any cuts or sores that do not appear to be healing. 4. Meter: Plan to check blood glucose: Please check blood glucose levels 4 times/day. Back to back meals reveal effectiveness of bolus dosing. The blood glucose data is used to determine insulin doses and confirm symptoms for hypoglycemia and hyperglcyemia. The blood glucose data is used to determine insulin doses, and confirm symptoms for hypoglycemia and hyperglcyemia. 5. [facility]. Contact office if any issues or concerns with patterns of hypoglycemia, hyperglycemia, or diabetes medication issues. 6. Prescriptions: BI and Gutierrez rx assist paperwork given today. Pt will need to fill out paperwork and bring back to office. He was also given rx assist paperwork for [facility] if he does not qualify for BI/jardiance. Ozempic will increase to 1mg once weekly. Apr, Hyperlipidemia (ICD-10 - E78.5) High cholesterol material was printed 07/2020 ldl 64 trig 207- on statin. Apr, HTN (hypertension) (ICD-10 - I10) About hypertension material was printed on [employer]ion[employer]. Apr, [facility] current use of insulin (ICD-10 - Z79.4) Apr, BMI 30.0-30.9,adult (ICD-10 - Z68.30) Eating healthy: tips to make it easier material was printed see above [employer] Other 11-16-2021 Evaluation note* Encounter Date Diagnosis Assessment Notes Treatment Notes Treatment Clinical Notes Jan, Diabetes mellitus with chronic kidney disease (ICD-10 - E11.22) His blood sugars are within the acceptable range. I have advised him to continue to follow with Tondra for DM management. He takes Lisinopril and I will continue it Jan, Chronic kidney disease, stage 3 unspecified (ICD-10 - N18.30) He has CKD due to longstanding DM with HTN. . His b/l serum Creatinine is 1.9-2.1 mg/dl. His renal function has declined recently due to the Covid infection and NSTEMI. His renal ultrasound showed unremarkable kidneys but postvoid urinary bladder volume of 103 mL. I have d/w him the importance of good DM and HTN control to slow down the progression of CKD. Jan, Rigo hy kid w cr kid I-IV (ICD-10 - I12.9) Blood pressure is controlled. Continue current medications Jan, Vitamin D deficiency (ICD-10 - E55.9) His MBD parameters are within the goal. [employer] Other 10-05-2021 Evaluation note* Encounter Date Diagnosis Assessment Notes Treatment Notes Treatment Clinical Notes Dec, Dietary counseling and surveillance (ICD-10 - Z71.3) Eat a diet rich in fruits and vegetables material was printed Dec, Type 2 diabetes mellitus with hyperglycemia (ICD-10 - E11.65) Type 2 diabetes material was printed 1. Controlled, a Type 2 diabetes with A1c of 6.6% 2. Blood glucose levels above target with increased variability. According to [employer] cgm download 12/07/2020-01/03/2021: Average glucose 135. Above 250-1%, >180- 12%, 70-180-82%, <70-4%, <54-1%. CV 29.7%. Reviewed download with pt, readings above target from missed meal dose or underestimation of carbs for meal. Reviewed with pt if meal to meal glucose pattern running <100 recommend he reduce meal insulin dose by 2 units. Also recommend reducing levemir to 13 units bid. If gfr drops <30 may need to consider stopping jardiance. 3. Patient is alert, oriented and receptive to making changes or counseling. Notes: Seen for an assessment of current glucose pattern, changes in treatment plan, with this time spent in counseling and coordination of care related to diabetes, risks, and benefits of treatment, medications, and side effects. TOPICS REVIEWED: 1. Time was spent reviewing: a. Basic concepts of diabetes, progressive beta cell , concepts of basal/bolus/correcti ve insulin requirements. Basal: The goal is fasting blood glucose of 90-130mg. IF fasting blood glucose starts to run under 100mg 3x's/ week, decrease dose by 10%. Bolus: The goal is to hold the blood glucose level steady meal to meal. If pt. is going to have increased physical activity after a meal, decrease the schedule meal dose prior to the activity by 30-50%. If pt. skips a meal do not take this dose. Correction: The goal is to correct an elevated glucose back into the 100-150mg range b. Nutrition: Concepts of healthy diet, encouraged to decrease saturated fat in diet and increase non-starchy vegetables and fruits in diet. BMI: Pt. needs to select one small change to decrease caloric intake or increase physical activity to help decrease weight. c. Correct treatment of hypoglycemia, carry a glucose source at all times on your person, in vehicles, and at bedside. Can use glucose tablets/4, four ounces of pop or juice equal to 15 G of carbohydrate. Blood glucose should be 100 mg/dl or higher when driving. d. ADA glucose goals for age and medical complexity reviewed e. Patient questions addressed 2. Activity/exercise: Encouraged to start any form of physical activity. Start low level and increase slowly to a minimal goal of 150 minutes/week. Limit activity to what is allowed by other issues such as cardiac, pulmonary or orthopedic restrictions. 3. Standards of care: Reminded to have an annual dilated eye exam, A1C every 3 months, urine testing for microalbumin once/year, check feet daily and report any cuts or sores that do not appear to be healing. 4. Meter: Plan to check blood glucose: Please check blood glucose levels 4 times/day. Back to back meals reveal effectiveness of bolus dosing. The blood glucose data is used to determine insulin doses and confirm symptoms for hypoglycemia and hyperglcyemia. The blood glucose data is used to determine insulin doses, and confirm symptoms for hypoglycemia and hyperglcyemia. 5. [facility]. Contact office if any issues or concerns with patterns of hypoglycemia, hyperglycemia, or diabetes medication issues. 6. Prescriptions: BI and Gutierrez rx assist Dec, Hyperlipidemia (ICD-10 - E78.5) High cholesterol material was printed on statin. Dec, HTN (hypertension) (ICD-10 - I10) About hypertension material was printed on [employer]ion[employer]. Dec, roasterman current use of insulin (ICD-10 - Z79.4) Dec, BMI 31.0-31.9,adult (ICD-10 - Z68.31) Eating healthy: tips to make it easier material was printed 12 pound weight loss from last visit, continue with weight loss efforts Dec, Bradycardia (ICD-10 - R00.1) Pt asymptomatic. 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 Pt has apt on Saturday next week. [employer] Other Evaluation + Plan note No data available for this section General Surgery Luis Enrique Evaluation noteNo InformationNort [employer] Other Evaluation note* Diagnosis Monoclonal gammopathy- Primary Monoclonal paraproteinemia documented [facility] Diagnosis Onset Date Resolution Status Non-ST elevation myocardial infarction (NSTEMI), initial care episode acute [facility] Work Phone: Hisahbz general Narrative - Reported* Type Description Date Medical History CAD s/p CABG Medical History DM2 Medical History HTN Medical History Hearts stents x6 Medical History Myeloma Medical History Diabetes Medical History CAD Medical History Hyperlipidemia Medical History COPD Medical History Chronic renal failure Medical History GERD Medical History Hx of Covid 03/2020 Medical History Heart Attack 06/2020 Medical History Hx of Covid 2020 Surgical History CABG Surgical History open heart surgery w ith 5 bypasses and stents placed. Last one done May Surgical History stent placement x 5 Surgical History STENTS PLACED IN LOWER AORT[place] FO R LEG CIRCULATION 11-25-16 Surgical History femoral vein bypass 2016 Surgical History HEART SURGERY -STENT PLACED 2017 Surgical History Hearth Cath- no stents 08/2018 Surgical History Stent placed 06/2020 Hospitalization History Chest 05/2012 Hospitalization History [facility] STENTS PLACED 11-25-16 Hospitalization History HEART STENT PLACED 03-20 [employer] Other Hisxwip general Narrative - ReportedNoUb[employer] Other Hiszbbn general Narrative - Reported* Type Description Date Medical History CAD s/p CABG Medical History DM2 Medical History HTN Medical History Hearts stents x6 Medical History Myeloma Medical History Diabetes Medical History CAD Medical History Hyperlipidemia Medical History COPD Medical History Chronic renal failure Medical History GERD Medical History Hx of Covid 03/2020 Medical History Heart Attack 06/2020 Medical History Hx of Covid 2020 Medical History Gastritis Surgical History CABG Surgical History open heart surgery w ith 5 bypasses and stents placed. Last one done May Surgical History stent placement x 5 Surgical History STENTS PLACED IN LOWER AORTA FO R LEG CIRCULATION 11-25-16 Surgical History femoral vein bypass 2016 Surgical History HEART SURGERY -STENT PLACED 2017 Surgical History Hearth Cath- no stents 08/2018 Surgical History Stent placed 06/2020 Hospitalization History Chest 05/2012 Hospitalization History [facility] STENTS PLACED 11-25-16 Hospitalization History HEART STENT PLACED 03-20 [employer] Other history general Narrative - Reported* Type Description Date Medical History CAD s/p CABG Medical History DM2 Medical History HTN Medical History Hearts stents x6 Medical History Myeloma Medical History Diabetes Medical History CAD Medical History Hyperlipidemia Medical History COPD Medical History Chronic renal failure Medical History GERD Medical History Hx of Covid 03/2020 Medical History Heart Attack 06/2020 Medical History Hx of Covid 2020 Medical History Gastritis Medical History pneumonia-10/2021 Surgical History CABG Surgical History open heart surgery w ith 5 bypasses and stents placed. Last one done May Surgical History stent placement x 5 Surgical History STENTS PLACED IN LOWER AORT[place] FO R LEG CIRCULATION 11-25-16 Surgical History femoral vein bypass 2016 Surgical History HEART SURGERY -STENT PLACED 2017 Surgical History Hearth Cath- no stents 08/2018 Surgical History Stent placed 06/2020 Hospitalization History Chest 05/2012 Hospitalization History [facility] STENTS PLACED 11-25-16 Hospitalization History HEART STENT PLACED 03-20 [employer] Other [employer] general Narrative - Reported* Type Description Date Medical History CAD s/p CABG Medical History DM2 Medical History HTN Medical History Hearts stents x6 Medical History Myeloma Medical History Diabetes Medical History CAD Medical History Hyperlipidemia Medical History COPD Medical History Chronic renal failure Medical History GERD Medical History Hx of Covid 03/2020 Medical History Heart Attack 06/2020 Medical History Hx of Covid 2020 Medical History Gastritis Medical History pneumonia-10/2021 Medical History Heart attacks 01/2022 and Surgical History CABG Surgical History open heart surgery w ith 5 bypasses and stents placed. Last one done May Surgical History stent placement x 5 Surgical History STENTS PLACED IN LOWER AORT[place] FO R LEG CIRCULATION 11-25-16 Surgical History femoral vein bypass 2016 Surgical History HEART SURGERY -STENT PLACED 2017 Surgical History Hearth Cath- no stents 08/2018 Surgical History Stent placed 06/2020 Surgical History Hearth cath 01/2022 Hospitalization History Chest 05/2012 Hospitalization History [facility] STENTS PLACED 11-25-16 Hospitalization History HEART STENT PLACED 03-20 [employer] Other history general Narrative - Reported* Type Description Date Medical History CAD s/p CABG Medical History DM2 Medical History HTN Medical History Hearts stents x6 Medical History Myeloma Medical History Diabetes Medical History CAD Medical History Hyperlipidemia Medical History COPD Medical History Chronic renal failure Medical History GERD Medical History Hx of Covid 03/2020 Medical History Heart Attack 06/2020 Medical History Hx of Covid 2020 Medical History Gastritis Medical History pneumonia-10/2021 Medical History Heart attacks 01/2022 and Surgical History CABG Surgical History open heart surgery w ith 5 bypasses and stents placed. Last one done May Surgical History stent placement x 5 Surgical History STENTS PLACED IN LOWER AORT[place] FO R LEG CIRCULATION 11-25-16 Surgical History femoral vein bypass 2016 Surgical History HEART SURGERY -STENT PLACED 2017 Surgical History Hearth Cath- no stents 08/2018 Surgical History Stent placed 06/2020 Surgical History Hearth cath 01/2022 Surgical History PACE MAKER PLACEMENT 03/2022 Hospitalization History Chest 05/2012 Hospitalization History [facility] STENTS PLACED 11-25-16 Hospitalization History HEART STENT PLACED 03-20 Hospitalization History SEE ABOVE [employer] Other History general Narrative - [email or web address] Other History general Narrative - Reported* Type Description Date Medical History CAD s/p CABG Medical History DM2 Medical History HTN Medical History Hearts stents x6 Medical History Myeloma Medical History Diabetes Medical History CAD Medical History Hyperlipidemia Medical History COPD Medical History CKD Medical History GERD Medical History Hx of Covid 03/2020 Medical History Heart Attack 06/2020 Medical History Hx of Covid 2020 Medical History Gastritis Medical History pneumonia-10/2021 Medical History Heart attacks 01/2022 and Surgical History CABG Surgical History open heart surgery w ith 5 bypasses and stents placed. Last one done May Surgical History stent placement x 5 Surgical History STENTS PLACED IN LOWER AORT[place] FO R LEG CIRCULATION 11-25-16 Surgical History femoral vein bypass 2016 Surgical History HEART SURGERY -STENT PLACED 2017 Surgical History Hearth Cath- no stents 08/2018 Surgical History Stent placed 06/2020 Surgical History Hearth cath 01/2022 Surgical History PACE MAKER PLACEMENT 03/2022 Surgical History EGD 06/2021 Surgical History Colonoscopy 06/2021 Hospitalization History Chest 05/2012 Hospitalization History [facility] STENTS PLACED 11-25-16 Hospitalization History HEART STENT PLACED 03-20 Hospitalization History SEE ABOVE [employer] Other History general Narrative - Reported* Type Description Date Medical History CAD s/p CABG Medical History DM2 Medical History HTN Medical History Hearts stents x6 Medical History Myeloma Medical History Diabetes Medical History CAD Medical History Hyperlipidemia Medical History COPD Medical History CKD Medical History GERD Medical History Hx of Covid 03/2020 Medical History Heart Attack 06/2020 Medical History Hx of Covid 2020 Medical History Gastritis Medical History pneumonia-10/2021 Medical History Heart attacks 01/2022 and Medical History GGO and Pulmonary nodules Surgical History CABG Surgical History open heart surgery w ith 5 bypasses and stents placed. Last one done May Surgical History stent placement x 5 Surgical History STENTS PLACED IN LOWER AORT[place] FO R LEG CIRCULATION 11-25-16 Surgical History femoral vein bypass 2016 Surgical History HEART SURGERY -STENT PLACED 2017 Surgical History Hearth Cath- no stents 08/2018 Surgical History Stent placed 06/2020 Surgical History Hearth cath 01/2022 Surgical History PACE MAKER PLACEMENT 03/2022 Surgical History EGD 06/2021 Surgical History Colonoscopy 06/2021 Hospitalization History Chest 05/2012 Hospitalization History [facility] STENTS PLACED 11-25-16 Hospitalization History HEART STENT PLACED 03-20 Hospitalization History SEE ABOVE [employer] Other History general Narrative - Reported* Type Description Date Medical History CAD s/p CABG Medical History DM2 Medical History HTN Medical History Hearts stents x6 Medical History Myeloma Medical History Diabetes Medical History CAD Medical History Hyperlipidemia Medical History COPD Medical History CKD Medical History GERD Medical History Hx of Covid 03/2020 Medical History Heart Attack 06/2020 Medical History Hx of Covid 2020 Medical History Gastritis Medical History pneumonia-10/2021 Medical History Heart attacks 01/2022 and Medical History GGO and Pulmonary nodules Surgical History CABG Surgical History open heart surgery w ith 5 bypasses and stents placed. Last one done May Surgical History stent placement x 5 Surgical History STENTS PLACED IN LOWER AORT[place] FO R LEG CIRCULATION 11-25-16 Surgical History femoral vein bypass 2016 Surgical History HEART SURGERY -STENT PLACED 2017 Surgical History Hearth Cath- no stents 08/2018 Surgical History Stent placed 06/2020 Surgical History Hearth cath 01/2022 Surgical History PACE MAKER PLACEMENT 03/2022 Surgical History EGD 06/2021 Surgical History Colonoscopy 06/2021 Surgical History BiV PM 01/2023 Hospitalization History Chest 05/2012 Hospitalization History [facility] STENTS PLACED 11-25-16 Hospitalization History HEART STENT PLACED 03-20 Hospitalization History SEE ABOVE [employer] Other History general Narrative - Reported* Type Description Date Medical History CAD s/p CABG Medical History DM2 Medical History HTN Medical History Hearts stents x6 Medical History Myeloma Medical History Diabetes Medical History CAD Medical History Hyperlipidemia Medical History COPD Medical History CKD Medical History GERD Medical History Hx of Covid 03/2020 Medical History Heart Attack 06/2020 Medical History Hx of Covid 2020 Medical History Gastritis Medical History pneumonia-10/2021 Medical History Heart attacks 01/2022 and Medical History GGO and Pulmonary nodules Medical History [place] 01/21 Medical History Defibrilator 02/21 Surgical History CABG Surgical History open heart surgery w ith 5 bypasses and stents placed. Last one done May Surgical History stent placement x 5 Surgical History STENTS PLACED IN LOWER AORT[place] FO R LEG CIRCULATION 11-25-16 Surgical History femoral vein bypass 2016 Surgical History HEART SURGERY -STENT PLACED 2017 Surgical History Hearth Cath- no stents 08/2018 Surgical History Stent placed 06/2020 Surgical History Hearth cath 01/2022 Surgical History PACE MAKER PLACEMENT 03/2022 Surgical History EGD 06/2021 Surgical History Colonoscopy 06/2021 Surgical History BiV PM 01/2023 Surgical History Defibrillator 02/21 Hospitalization History Chest 05/2012 Hospitalization History [facility] STENTS PLACED 11-25-16 Hospitalization History HEART STENT PLACED 03-20 Hospitalization History SEE ABOVE Hospitalization History [place] 01/21 [employer] Other Hospital Discharge instructions No data available for this section General Surgery [facility] Discharge instructions Additional Instructions Monitor glucose levels as before. DISCHARGE INSTRUCTIONS FOR CARDIAC PRODUCTION RECORDER PHONE NUMBER OF YOUR PHYSICIAN: [phone] PROCEDURE: Heart Cath The following instructions have been prepared to help you care for yourself, or be cared for upon your return home. 1. You were given conscious sedation. Do not operate a vehicle, power tools, make important decisions, or drink alcohol for 24 hours. You might be drowsy or light headed. Return to the Emergency Room if you have trouble breathing, walking or nausea and vomiting. 2. FOR BLEEDING: Apply continuous pressure to the site and call 911. 3. Operative Site Care: Keep the dressing clean and dry. You may change the dressing only if soiled or wet. You may remove the dressing the following morning. You may wash over the puncture site in the shower. If the puncture site is at the wrist no soaking for 3 days. Some bruising or slight swelling may be present. -Signs of infection are redness, warmth, swelling, getting more sore, colored drainage, fever or chills. -Should the arm or leg become cold, numb, blue or white, call the coal pulverizing operator immediately. 4. ACTIVITY: You are advised to go directly home from the hospital. Restrict your activities for the rest of the day. Resume light or normal activities tomorrow. Do not engage in any activity that will stress the puncture site. Avoid heavy lifting (over 15 lbs.), straining or bending at the catheter site for 48 hours after discharge. If the puncture site is at the wrist do not manipulate wrist for 24 hours and no lifting more than 3 lbs for 3 days. 5. DIET:You may eat your regular diet when you desire. 6. MEDICATIONS: Resume your daily prescription schedule. Prescriptions may be sent with you if needed. Use as directed. When taking pain medications, you may experience dizziness or drowsiness. Do not drink alcohol or drive when taking pain medications. 7. If you should experience episodes of angina e.g. chest discomfort, heaviness, tightness, pressure, burning, with or without radiation to the neck, jaws, arms, or back- Use 1 Nitrostat under your tongue every 5-10 minutes, and up to 3 tablets. If no relief- Call 911 and go to the nearest Emergency Room. -Notify the office for recurrent angina, chest pain or other concerns. You may NOT drive yourself home! Follow the medication instructions provided on your discharge. If the dosages and instructions on this sheet differ from the dosage and instructions on the bottle, follow the instructions on the bottle. [facility] is not responsible for incorrect prescription information provided by the patient during their visit. Do not stop your medications without consulting your health care provider. Please take the list with you to your next doctor's appointment. [facility] Work Phone: Progress note No data available for this section General Surgery Omega Summary Purpose Family History No Family History Records Found Relationship Condition Age at Onset Recorded Date/T maximo Not Specified Heart disease Unknown Advance Directives No Advanced Directives Records Found Advance Directive Response Recorded Date/ Time Advance Directives No September 19 8:18am Chief Complaint and Reason for Visit Chief Complaint E11.65 non stemi Reason for Visit Non-ST elevation rachel cardial infarction (NSTEMI), initial care episode Additional Source Comments (unrecognized sect ion and content) No Status Records FoundNo Status Records FoundNo Status Records FoundNo Status Records FoundNo Status Records FoundNo Status Records Found INFORMATION SOURCE (unrecogn ized section and content) DATE CREATED AUTHOR 11/29/2018 [facility] DATE CREATED AUTHOR AUTHOR'S ORGANIZ ATION 10/20/2021 [facility] DATE CREATED AUTHOR AUTHOR'S ORGANIZ ATION 10/25/2021 [facility] DATE CREATED AUTHOR AUTHOR'S ORGANIZ ATION 08/13/2022 [facility] DATE CREATED AUTHOR AUTHOR'S ORGANIZ ATION 03/18/2023 [facility] DATE CREATED AUTHOR AUTHOR'S ORGANIZ ATION 03/28/2023 [facility] REASON FOR VISIT (unrecogniz ed section and content) Reason Comments Lab Orders Care Team (unrecognized sect ion and content) 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 Relationship Specialty Start Date End Date Harley Crespo, [address] [place] [address] PCP - General Internal Medicine 07/18/18 Team Status: Inactive Member Role Status Dates Harley Crespo , Primary Care Provider Active Gagan Shahid DO Admit Provider, Attending Provider Active Team Status: Active Member Role Status Dates Harley Crespo DO Primary Care Provider Active Ryan Garrett APRN TECHNICAL ACCOUNT MANAGER-C Active Valerie Gallegos PA-C Active Viky Kwong APRN Attending Provider Active Team Status: Active Member Role Status Dates Harley Crespo , Primary Care Provider Active Source Comments (unrecognize d section and content) In the event this informatio n is protected by the Federal Confidentiality of Alcohol and Drug Abuse Patient Records regulations: The Federal rules restrict any use of the information to criminally investigate or prosecute any alcohol or drug abuse patient.[facility] FOR RECORDS PERTAINING TO PATIENTS WHO ARE OR HAVE BEEN ENROLLED IN A CHEMICAL DEPENDENCY/SUBSTANCEABUSE PROGRAM, SOME INFORMATION MAY BE OMITTED. This clinical summary was aggregated from multiple sources. Caution should be exercised in using it in the provision of clinical care. This summary normalizes information from multiple sources, and as a consequence, information in this document may materially change the coding, format and clinical context of patient data. In addition, data may be omitted in some cases. CLINICAL DECISIONS SHOULD BE BASED ON THE PRIMARY CLINICAL RECORDS. [facility]. provides no warranty or guarantee of the accuracy or completeness of information in this document.
--- NOTE | 2023-04-16 11:07 | CA_ITS ---
Patient Name: LANI LIZAMA MR#: [id number] : 1950 Exam Date: 04/16/2023 Ordering Doctor: LAILA GREEN ECHOCARDIOGRAM REPORT PROCEDURE: CA ECHO DOPPLER COMPLETE INDICATIONS: Heart failure with reduced ejection fraction due to cardiomyopathy, defibrillator, CABGx5, stents x7, GA, hypertension, diabetes COMPARISON: None. DESCRIPTION: COMPLETE ECHOCARDIOGRAM Real-time transthoracic echocardiography with 2D, M-mode, spectral and color flow Doppler performed. QUALITY: Technical quality was good. 67 , 170#, BSA 1.89 m2 LEFT VENTRICLE: Normal chamber size. Normal left ventricular wall thickness. Severely reduced systolic function. There appears to be akinesis of anterior and anteroseptal segments and apex with severe hypokinesis elsewhere. LV EF: Severely reduced left ventricular ejection fraction, (15-20%). DIASTOLIC: Grade II diastolic dysfunction. ATRIAL SEPTUM: Visually appears intact. LEFT ATRIUM: Normal chamber size. RIGHT ATRIUM: Normal chamber size. RIGHT VENTRICLE: Normal chamber size. Systolic function appears preserved. Pacer wire present. TRICUSPID VALVE: Normal mobility and thickness. No stenosis with mild regurgitation. Doppler studies reveal moderately elevated right sided pressures. RVSP 45 mmHg MITRAL VALVE: Normal mobility and thickness. There is no mitral annular calcification. Moderate mitral regurgitation. AORTIC VALVE: Normal trileaflet appearance. Mildly calcified aortic valve. Normal leaflet mobility. No evidence of aortic valve stenosis. DVI 0.6. No aortic regurgitation. AORTIC ROOT: Normal diameter and appearance. PULMONIC VALVE: Normal thickness and mobility. No stenosis. Mild regurgitation. PERICARDIUM: No evidence of pericardial effusion. IVC: IVC is normal in size with no collapse. PLEURA: CONCLUSION: 1. Left ventricular systolic function is severely reduced with segmental wall motion abnormalities. LVEF is estimated at 15 to 20%. 2. Normal right ventricular size and systolic function. 3. Moderate mitral regurgitation. 4. Mild tricuspid regurgitation. 5. Moderately elevated right-sided pressures. Adult Echocardiography Procedure Report Left Ventricle LVEDD (3.7 - 5.6 cm): 5.25 cm LVESD (2.2 - 4.0 cm): 5.14 cm LVIVS thickness (0.6 - 1.2 cm): 0.98 cm LVPW thickness (0.5 - 1.0 cm): 0.98 cm e': 0.07 m/s E - e': 11.74 LVOT Max Gradient: 1.30 mm[Hg] LVOT Area (cm2): 0.57 m/s Peak Velocity (LVOT): 0.57 m/s Mean Velocity (LVOT): 0.40 m/s LVOT Diameter 1.92 cm Left Atrium LA Volume Index (2D A2C): 33.83 ml/m2 Left Atrium Systolic Dimension: 4.01 cm Mitral Valve MV E to A Ratio: 1.34 Mitral Valve A-Wave Peak Velocity: 0.66 m/s Mitral Valve E-Wave Peak Velocity: 0.88 m/s Right Ventricle Aorta AO Root Diam: 3.17 cm Ascending Ao Diam: 2.28 cm Aortic Valve AoV Area (Peak Ermias): 1.81 cm2, 1.81 cm2 AoV Area (VTI): 1.89 cm2, 1.89 cm2 Peak Velocity(Antegrade Flow): 0.91 m/s Peak Gradient(Antegrade Flow): 3.30 mm[Hg] Mean Velocity(Antegrade Flow): 0.65 m/s Mean Gradient(Antegrade Flow): 1.88 mm[Hg] Velocity Time Integral: 17.03 cm Tricuspid Valve Peak Velocity (Regurgitant Flow): 2.64 m/s, 2.75 m/s, 2.59 m/s Pulmonic Valve Peak Velocity: 0.65 m/s Peak Gradient: 1.67 mm[Hg], 1.67 mm[Hg] Right Atrium Dictated by: Petar Foreman M.D. on 04/16/2023 at 18:25 Approved by: Petar Foreman M.D. on 04/16/2023 at 18:31
== END 2023-04-16 08:53 | disposition home or self-care (01) ==
LOC: CARD 08:52
PROVIDERS: PCP Internal Medicine; Visit Provider Nurse Practitioner
DX: R00.2 Palpitations (principal); I50.23 Acute on chronic systolic (congestive) heart failure
CPT/HCPCS: 93306; 93356

== ENCOUNTER 2023-06-13 07:56 | Outpatient (OUT) | payer MEDICARE, OTHER, SELFPAY ==
--- OUTSIDE RECORDS SUMMARY | 2023-06-13 08:05 | XMS_ITS | CCD ---
Author Name Unknown Address [address] [place] [address] Organization [facility] Care Team Providers Care Machine Repair Person Name Role Phone ELTAHAWY, EHAB A Admitting Unavailable ELTAHAWY, EHAB A Attending Unavailable HARLEY CRESPO Referring Unavailable HARLEY CRESPO Primary Care Unavailable ELTAHAWY, PINKY A Surgeon Unavailable [place] Procedure Practitioner Unavailab le ELTAHAWY, NETOAB A Admitting Unavailable ELCANDIDO, EHAB A Attending Unavailable HARLEY CRESPO Referring Unavailable HARLEY CRESPO Primary Care Unavailable Viky Kwong Unavailable Kingsley Good Unavailable Shannon Escobar Unavailable HARLEY CRESPO Primary Care Physician [phone] Harley Crespo DO Primary Care Provider DO Harley Crespo Primary Care Provider [phone] JULY Kwong Attending Provider DO Gagan Shahid Admit Provider DO Gagan Shahid Attending Provider Harley Crespo Unavailable VIJAY, DR LOWE Consulting Unavailable CHERIE, DR CARVALHO Primary Care Unavailable ELTAHAWY, DR LOWE Attending Unavailable ELTAHAWJo, DR LOWE Admitting Unavailable VLAD, DR PARUL aSnchez Procedure Practitioner Unavaila ble NIDA ., DR [...] DR HIGINIO Sanchez Consulting Unavailable BALL, DR CARVAHLO Admitting Unavailable BALL, DR CARVALHO Attending Unavailable [...] GORDILLO Consulting Unavailable GAGAN CAREY Consulting Unavailable Denita Chairez Unavailable KEVIN ARTEAGA Referring Unavailable BARAZBridgett, LAILA Attending Unavailable JENNIKEVIN Molina Admitting Unavailable JENNI, KEVIN Attending Unavailable WITHEREGENOVEVA, DEISY Attending Unavailable WITHEREGENOVEVA, DEISY Referring Unavailable ELTAHAWY, PINKY Attending Unavailable BARAZI, LAILA Attending Unavailable HOYDELTA Referring Unavailable PEDROABIEL Admitting Unavailable LAURA, HANI Attending Unavailable PEPE, TIN Referring Unavailable BARAZI, LAILA Attending Unavailable PEPE, TIN Referring Unavailable ELTAHAWY, EHAB Attending Unavailable JENNI, KEVIN Referring Unavailable JENNI, KEVNI Referring Unavailable JENNI, KEVIN Referring Unavailable WITHPARUL, DEISY Attending Unavailable RODGER, DEISY Attending Unavailable JENNI, KEVIN Referring Unavailable JENNI, KEVIN Referring Unavailable JENNI, KEVIN Attending Unavailable RODGER, DEISY Attending Unavailable DO Harley Crespo Primary Care Provider JULY Kwong Attending Provider Viky Kwong Attending Unavailable Viky Kwong Admitting Unavailable Harley Crespo Primary Care Unavailable Allergies Allergy Classification Reported Allergen(s) Allergy Type Date of Onset Reaction(s) Facility (1 source) 02992,[id number]; Translations: [Unknown] Propensity to adverse reactions (disorder) 9 [facility] Repository Medications Current Medications Medication Drug [...] mg oral tablet (20 sources) Benzodiazepine Start: 06-22-2020 take 1 tablet by mouth three times daily ALPRAZolam 0.5 MG TAKE 1 TABLET BY MOUTH 3 TIMES A DAY for 30 Jan, Active Comment on above: Take 0.5 mg by mouth at bedtime as needed. amLODIPine 10 mg oral tablet (20 sources) Dihydropyridine Calcium Channel Jason Start: 09-07-2021 take 1 tablet by mouth once daily amLODIPine 10 mg Tab 10 mg = 1 tab(s), Oral, Daily, Refills(s) 0 Start Date: 09/07/21 Status: Ordered Start: 06-22-2020 take 10 mg by mouth once daily Amlodipine Active 10 MG PO Daily June 21, 2020 11:00pm Start: 10-16-2018 take 1 tablet by bhavik [...] Aspirin Active 81 MG PO Daily June 21, 2020 11:00pm take 1 tablet by bhavik th every [...] Twice daily with meals 60 30 January 16, 2022 11:00pm Start: 09-07-2021 take 1 tablet by bhavik th twice daily carvedilol 12.5 mg Tab 12.5 mg = 1 tab(s), Oral, BID, Refills(s) 0 Start Date: 09/07/21 Status: Ordered Start: 06-22-2020 End: 01-17-2022 take 12.5 mg by mouth twice daily Carvedilol Discontinued 12.5 MG PO Twice daily June 21, 2020 11:00pm January 17, 2022 1:28pm take 1 tablet by bhavik th every [...] with meals. cholecalciferol 0.025 mg oral tablet (4 sources) Vitamin D take 1 tablet by [...] Clopidogrel Active 75 MG PO Daily January 14, 2022 11:00pm Start: 09-07-2021 take 1 tablet by bhavik th once daily Plavix 75 mg Tab 75 mg = 1 tab(s), Oral, Daily, Refills(s) 0 Start Date: 09/07/21 Status: Ordered Start: 07-11-2020 End: 07-13-2020 take 75 mg by mouth once daily Clopidogrel Discontinue d 75 MG PO Daily July 10, 2020 11:00pm July 13, 2020 3:14pm Comment on above: Take 75 mg by mouth once daily. docusate sodium 100 mg oral capsule (20 sources) take 1 capsule by mouth every twenty-four hours Colace 100 MG 1 capsule as needed Orally Once a day Active Colace Active empagliflozin 10 mg oral tablet (20 sources) Sodium-Glucose Cotransporter 2 Inhibitor Start: 06-22-2020 take 1 tablet by mouth once daily Empagliflozin (Jardiance) 10 mg Tablet Active 10 MG PO Daily June 21, 2020 11:00pm empagliflozin (J ARDIANCE) 25 mg tablet q 24 HR. 0 Active Comment on above: q 24 HR. Insulin Aspart U-100 (Novolog Flexpen U-100 Insulin) 100 unit/mL (3 mL) Insulin Pen (2 sources) Start: 01-15-2022 inject 5 [IU] by subcutaneous injection three times daily Insulin Aspart U-100 (Novolog Flexpen U-100 Insulin) 100 unit/mL (3 mL) Insulin Pen Active 1 UNIT SUBCUT Three times daily January 14, 2022 11:00pm 5 units at times depending on blood sugar Start: 01-15-2022 inject 5 [IU] by sub cutaneous injection three times daily Insulin Aspart U-100 [...] ml insulin degludec 100 unt/ml pen injector (3 sources) Insulin Analog Start: 03-12-2023 inject 20 [IU] by subcutaneous injection once daily in the morning Tresiba FlexTouch 100 UNIT/ML 20 units Subcutaneous qam Mar, Active Humulin N (5 sources) Start: 09-07-2021 inject 15 [IU] by subcutaneous injection twice daily Humulin N 15 unit(s), SubCutaneous, BID, Refills(s) 0 Start Date: 09/07/21 Status: Ordered Start: 07-11-2020 End: 01-15-2022 Insulin Nph Isoph U-100 Josh n (Novolin N Nph U-100 Insulin) 100 unit/mL Suspension Discontinued 1 UNIT SUBCUT As Directed July 10, 2020 11:00pm January 15, 2022 2:42pm sliding scale insulin NPH josh n (HUMULIN [...] Active 60 MG PO Twice daily 60 January 16, 2022 11:00pm Start: 06-22-2020 End: 01-17-2022 take 60 mg by mouth once daily Isosorbide Mononitrate Discontinued 60 MG PO Daily June 21, 2020 11:00pm January 17, 2022 1:28pm take 1 tablet by bhavik th every [...] Angiotensin Converting Enzyme Inhibitor Start: 1 take 20 mg by mouth once daily in the evening Lisinopril Active 20 MG PO every evening at 6 PM. June 21, 2020 11:00pm take 1 tablet by bhavik th every [...] Loratadine Active 10 MG PO Daily January 14, 2022 11:00pm loratadine 10 mg cap Take by mouth. [...] Active 40 MG PO Every evening June 21, 2020 11:00pm take 1 tablet by bhavik th once daily at bedtime lovastatin (MEVACOR) 20 mg tablet Take 20 mg by mouth daily at bedtime. 0 Active Comment on above: Take 20 mg by mouth daily at bedtime. 24 hr metoprolol succinate 100 mg extended release oral tablet (7 sources) beta-Adrenergic Jason take 1 tablet by mouth every twenty-four hours Metoprolol Succinate ER 100 MG 1 tablet Orally Once a day Active take 1 tablet by bhavik th every twenty-four hours Metoprolol Succinate ER 50 MG 1 tablet Orally Once a day Active Multivitamin preparation (20 sources) Start: 01-15-2022 take 1 tablet by mouth once daily Multivitamin Active 1 TAB PO Daily January 14, 2022 11:00pm Start: 01-15-2022 take 1 tablet by bhavik th once daily Multivitamin Active 1 TAB PO Daily January 15, 2022 12:00am take 1 tablet by bhavik th once daily Multi Vitamin - 1 tablet Orally Once a day Active nitroglycerin 0.4 mg subling ual tablet (8 sources) Nitrate Vasodilator Nitrostat 0. 4 MG [...] ozempic (1 mg/dose) 4 mg/3ml solution pen-injector (3 sources) inject 1 mg by subcutaneous injection every week Ozempic (1 MG/DOSE) 4 MG/3ML 1mg Subcutaneous once weekly Active pantoprazole 40 mg delayed release oral tablet (20 sources) Proton Pump Inhibitor Start: 07-11-19 take 40 mg by mouth once daily Pantoprazole Active 40 MG PO Daily July 09, 2021 11:00pm rosuvastatin calcium 40 mg oral tablet (13 sources) HMG-CoA Reductase Inhibitor take 1 tablet by mouth every twenty-four hours Rosuvastatin Calcium 40 MG 1 tablet Orally Once a day Active Ozempic (6 sources) Start: 09-30-19 Ozempic qWeek, Refill(s) 0 Start Date: 09/29/21 Status: Ordered Start: 07-10-2021 Semaglutide (O zempic) 0.25 mg or 0.5 mg(2 mg/1.5 mL) Pen Injector Active 0.5 MG SUBCUT every week July 09, 2021 11:00pm Saturday vitamin b12 1 mg oral tablet (2 sources) Vitamin B12 Start: 01-15-2022 take 1 tablet by mouth once daily Cyanocobalamin (Vitamin B-12) (Vitamin B-12) 1,000 mcg Tablet Active 1000 MCG PO Daily January 14, 2022 11:00pm Vitamin D 25 MCG (1000 UT) (20 sources) take 1 tablet by mouth once rg y Vitamin D 25 MCG (1000 UT) 1 tablet Orally Once a day Active Vitamins/Minerals (20 sources) Vitamins/Mineral s as directed Orally Active Completed/Discontinued Medications Medication Drug Class(es) Dates Sig (Normalized) Sig (Original) amoxicillin 875 mg / clavulanate 125 mg oral tablet (2 sources) Penicillin-class Antibacterial Start: 06-24-2020 End: 07-11-2020 take 1 tablet by mouth twice daily Amoxicillin-Pot Clavulanate (Augmentin) 875-125 mg tablet Discontinued 1 TAB PO Twice daily June 23, 2020 11:00pm July 11, 2020 4:52pm dapagliflozin 10 mg oral tablet (7 sources) Sodium-Glucose Cotransporter 2 Inhibitor take 1 [...] Discontinued 40 MG PO Twice daily January 14, 2022 11:00pm January 15, 2022 6:52pm Start: 09-07-2021 take 1 tablet by bhavik th twice daily famotidine 20 mg Tab 20 mg = 1 tab(s), Oral, BID, Refills(s) 0 Start Date: 09/07/21 Status: Ordered Start: 06-22-2020 End: 07-10-2021 take 40 mg by mouth twice daily Famotidine Discontinue d 40 MG PO Twice daily June 21, 2020 11:00pm July 10, 2021 8:56am Comment on above: TAKE 1 2 (ONE [...] Discontinued 1 UNIT SUBCUT Twice daily January 14, 2022 11:00pm January 15, 2022 5:27pm Start: 09-29-2021 Levemir as dir ected, Refills(s) [...] Active insulin lispro 100 unt/ml injectable solution (7 sources) Insulin Analog HumaLOG 100 UNIT /ML as directed Injection with breakfast, lunch and evening meal Not-Taking/PRN HumaLOG 100 UNIT /ML as directed Injection with breakfast, lunch and evening meal Not-Taking insulin, regular, human 100 unt/ml injectable solution (3 sources) Insulin Start: 07-11-2020 End: 01-15-2022 Insulin Regular Human (Novolin R Regular U100 Insulin) 100 unit/mL Solution Discontinued 1 UNIT SUBCUT As Directed July 10, 2020 11:00pm January 15, 2022 2:42pm sliding scale NovoLIN R ReliOn 100 UNIT/ML [...] day Not-Taking/PRN predniSONE 20 mg oral tablet (2 sources) Start: 06-24-2020 End: 07-11-2020 take 40 mg by mouth once daily Prednisone Discontinued 40 MG PO Daily 18 01June 23, 2020 11:00pm July 11, 2020 4:52pm sacubitril 24 mg / valsartan 26 mg oral tablet (7 sources) Angiotensin 2 Receptor Jason take 1 tablet by mouth every twelve hours Entresto 24-26 MG 1 tablet Orally Twice a day Not-Taking/PRN thiamine 100 mg oral tablet (20 sources) take 1 tablet by mouth every twenty-four hours Vitamin B-1 100 MG 1 tablet Orally Once a day Not-Taking/PRN ticagrelor 90 mg oral tablet (2 sources) Start: 07-13-2020 End: 07-10-2021 take 1 tablet by mouth twice daily Ticagrelor (Brilinta) 90 mg Tablet Discontinued 90 MG PO Twice daily 180 90 July 12, 2020 11:00pm July 10, 2021 8:59am triamcinolone acetonide 0.23063 mg/mg topical ointment (1 source) Corticosteroid triamcinolone [...] Date Documented Date Episodic/Chronic Acute myocardial infarction (13 sources) Myocardial infarction; Translations: [Non-ST elevation (NSTEMI) myocardial infarction] Onset: 2 07-12-2020 Chronic Administrative/social admission (20 sources) Financial problem; Translations: [Other problems related to housing and economic circumstances] Onset: 1 Resolved: 2 Episodic Cardiac dysrhythmias (4 sources) Bradycardia, unspecified; Translations: [Palpitations] Onset: 1 Resolved: 2 Episodic Chronic kidney disease (20 sources) Chronic kidney disease stage 3; Translations: [Chronic renal disease, stage III] 09-07-2021 Chronic Chronic obstructive pulmonary disease and bronchiectasis (2 sources) Acute exacerbation of chronic obstructive airways disease [...] artery disease; Translations: [Atherosclerotic heart disease of inupiat coronary artery without angina pectoris] Onset: 2 09-07-2021 Chronic Deficiency and other anemia (20 sources) Anemia [...] [Monoclonal gammopathy (clinical)] Onset: 9 09-07-2021 Chronic Nonspecific chest pain (7 sources) Chest pain; Translations: [Chest pain, unspecified] Onset: 2 07-11-2020 Episodic Nutritional deficiencies (20 sources) Vitamin D deficiency; Translations: [Vitamin D deficiency, unspecified] Onset: 1 Resolved: 2 Chronic Other aftercare (20 sources) Long-term current use of insulin; 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] Episodic Other aftercare (11 sources) USP (current) use of insulin; 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 Z79.4] Onset: 1 [...] proteins] 07-11-2020 Episodic Other lower respiratory disease (2 sources) Hypoxia; Translations: [Hypoxemia] 06-22-2020 Episodic Other lower respiratory disease (9 sources) Other nonspecific abnormal finding of lung field; Translations: [OTH NONSPECIFIC ABN FIND LNG FIELD] Onset: 2 Episodic Other lower respiratory disease (5 sources) Solitary pulmonary nodule; Translations: [SOLITARY PULMONARY NODULE] Onset: 2 Episodic Other lower respiratory disease (12 sources) Nodule of lung; Translations: [Solitary pulmonary [...] conditions (not mental disorders or infectious disease) (5 sources) Increased immunoglobulin; Translations: [Patient encounter status] 09-07-2021 Episodic Peripheral and visceral atherosclerosis (1 source) Intermittent claudication of bilateral lower limbs co-occurrent and due to atherosclerosis 09-07-2021 Chronic Spondylosis; intervertebral disc disorders; other back problems (1 source) Lumbar spondylosis 09-07-2021 Chronic Unclassified (1 source) [facility]RN KIDNEY DISEASE STG [...] stage 3 unspecified] Onset: 02-14-2021 Resolved: 06-06-2021 Coronary atherosclerosis and other heart disease (4 sources) Presence of aortocoronary bypass graft; Translations: [Presence of coronary angioplasty implant and graft] Onset: 03-02-2022 Episodic Diabetes mellitus with complications (20 sources) Diabetes [...] sources) Nausea; Translations: [Nausea] Onset: 09-29-2021 Episodic Other aftercare (1 source) USP (current) use of aspirin; Translations: [SNUFF GRINDER CURRENT USE OF ASPIRIN] Onset: 04-03-2022 Episodic Other aftercare (1 source) Other detention (current) drug therapy; Translations: [OTH HALFWAY CURRENT DRUG THERAPY] Onset: 04-03-2022 Episodic Other lower respiratory disease (1 source) [...] HISTORY OF NICOTINE DEPEND] Onset: 04-03-2022 Episodic Syncope (2 sources) Syncope and collapse; Translations: [Syncope and collapse] Onset: 01-17-2023 Episodic Unclassified (20 sources) Long-term current use of insulin; Translations: [Insulin long-term use] Unclassified (2 sources) Chronic renal impairment, stage 3b N18.32 Unclassified (1 source) Other supraventricular tachycardia; Translations: [Other supraventricular tachycardia] Onset: 03-07-2023 Results Test Name Value Interpretation Reference Range Facility Office Visiton 05-07-2023 Follow-up visit [id number] Lani Lizama 1950 M Date Provider Department Center 05/07/2023 KEVIN DEMPSEY Family History Problem Relation Age of Onset Heart attack Mother Other Father Other Brother Heart attack Maternal Grandmother Heart attack Maternal Grandfather Family Status - Relation Status Age at Mother Father Brother Maternal Grandmother Maternal Grandfather Level of Service:[id number] [place] OFFICE/OUTPATIENT ESTABLISHED LOW MDM 20 MIN Normal [facility] Office Visiton 04-30-2023 Follow-up visit [id number] Lani Lizama 1950 M Date Provider Department Center 04/30/2023 LAILA MCBRIDE MARCELINO Armas Family History Problem Relation Age of Onset Heart attack Mother Other Father Other Brother Heart attack Maternal Grandmother Heart attack Maternal Grandfather Family Status - Relation Status Age at Mother Father Brother Maternal Grandmother Maternal Grandfather Level of Service:43048 [place] OFFICE/OUTPATIENT ESTABLISHED MOD MDM 30 MIN Normal [facility] Office Visiton 03-18-2023 Follow-up visit [id number] Lani Lizama 1950 M Date Provider Department Center 03/18/2023 Nakul-LAILA DUARTE MARCELINO [facility] Family History Problem Relation Age of Onset Heart attack Mother Other Father Other Brother Heart attack Maternal Grandmother Heart attack Maternal Grandfather Family Status - Relation Status Age at Mother Father Brother Maternal Grandmother Maternal Grandfather Level of Service:42943 [place] OFFICE/OUTPATIENT ESTABLISHED MOD MDM 30 MIN Normal [facility] A1C HEMOGLOBINon 03-12-2023 HbA1c (Bld) [Mass fraction] 7.1 % [facility] Other Glucose - FINGER STICKon Glucose [Mass/Vol] 151 mg/dL [facility] Other HbA1c (Bld) [Mass fraction]o n 03-12-2023 A1C HEMOGLOBIN [facility] Other Office Visiton 03-07-2023 Follow-up visit [id number] Lani Lizama 1950 M Date Provider Department Center 03/07/2023 Scott-PINKY BISHOP MARCELINO Armas Family History Problem Relation Age of Onset Heart attack Mother Other Father Other Brother Heart attack Maternal Grandmother Heart attack Maternal Grandfather Family Status - Relation Status Age at Mother Father Brother Maternal Grandmother Maternal Grandfather Level of Service:61835 [place] OFFICE/OUTPATIENT ESTABLISHED MOD MDM 30-39 MIN Normal [facility] Orders Onlyon 02-27-2023 Orders Only [id number] Lani Lizama 1950 M Date Provider Department Center 02/27/2023 Bart-GEOVANNA BASS M[facility]ELINO [facility] Family History Problem Relation Age of Onset Heart attack Mother Other Father Other Brother Heart attack Maternal Grandmother Heart attack Maternal Grandfather Family Status - Relation Status Age at Mother Father Brother Maternal Grandmother Maternal Grandfather Normal [facility] Office Visiton 02-19-2023 Follow-up visit [id number] Lani Lizama 1950 M Date Provider Department Center 02/19/2023 [id number] SOARES MARCELINO [facility] Family History Problem Relation Age of Onset Heart attack Mother Other Father Other Brother Heart attack Maternal Grandmother Heart attack Maternal Grandfather Family Status - Relation Status Age at Mother Father Brother Maternal Grandmother Maternal Grandfather Level of Service:[id number] [place] POSTOP FOLLOW UP VISIT RELATED TO ORIGINAL PX Normal [facility] HPon 02-12-2023 HP ------ -- Attestation [...] and hypertension. He was recently admitted to [facility] for [place]STEM[facility]. Had inpatient stress test and heart cath. Denies SOB but still having chest pain and has taken nitroglycerin a few times for relief. Had CT chest last week s/p discharge. Cardiac catheterization revealed patent bypass grafts and worsening inupiat vessel disease. Medications were adjusted. I had [...] the morning. rubina (more content not included)... [facility] NURSNOTEon 02-12-2023 NURSNOTE RN educated pt on d/ c instructions. RN encouraged pt to voice any questions or concerns. Pt verbalizes no questions or concerns at this time. [facility] NURSNOTE CHG wipes and iodine nasal swab completed per protocol. [facility] Orders Onlyon 02-12-2023 Orders Only [id number] Lani Lizama 1950 M Date Provider Department Center 02/12/2023 PORFIRIO GAXIOLA [facility] Family History Problem Relation Age of Onset Heart attack Mother Other Father Other Brother Heart attack Maternal Grandmother Heart attack Maternal Grandfather Family Status - Relation Status Age at Mother Father Brother Maternal Grandmother Maternal Grandfather Normal [facility] Follow-Upon 02-01-2023 Follow-Up [id number] Lani Lizama 1950 M Date Provider Department Alligator 02/01/2023 Janie6-LAILA DUARTE MARCELINO [facility] Family History Problem Relation Age of Onset Heart attack Mother Other Father Other Brother Heart attack Maternal Grandmother Heart attack Maternal Grandfather Family Status - Relation Status Age at Mother Father Brother Maternal Grandmother Maternal Grandfather Level of Service:57595 [place] OFFICE/OUTPATIENT ESTABLISHED MOD MDM 30-39 MIN Reason for Visit and Comments: Follow-up [627395] Normal [facility] 30on 01-28-2023 30 The patient is Moder ately Stable - Low risk of patient condition declining or worsening The patient's goals for the shift include comfort The clinical goals for the shift include vss, safety Over the shift, the patient continued to make progress toward the following goals. Normal [facility] APTTon 01-28-2023 ACTIVATED PARTIAL THROMBOPLASTIN TIME IN PPP BY COAGULATION ASSAY 125.9 Seconds High 25.0-35.0 [facility] Comment on above: Result Comment: Clin ical significance of the APTT is questionable in the presence of heparin. Performed By: #### L [id number] #### [facility] ([facility]) [address] [place] [address] BASIC METABOLIC PANELon 01-01 Anion gap [Moles/Vol] 10 mmol/L Normal 7-20 [facility] Comment on above: Performed By: #### L AB15 ####[facility] ([facility])[address] [place] [address] Calcium [Mass/Vol] 9.1 mg/dL Normal 8.6-10.3 [facility] Comment on above: Performed By: #### L AB15 ####[facility] ([facility])[address] [place] [address] Chloride [Moles/Vol] 110 mmol/L High 98-107 [facility] Comment on above: Performed By: #### L AB15 ####[facility] ([facility])[address] [place] [address] CO2 [Moles/Vol] 24 mmol/L Normal 21-31 [facility] Comment on above: Performed By: #### L AB15 ####[facility] ([facility])[address] [place] [address] Creatinine [Mass/Vol] 1.46 mg/dL High 0.70-1.30 [facility] Comment on above: Performed By: #### L AB15 ####[facility] ([facility])[address] [place] [address] GLOMERULAR FILTRATION RATE ML/MIN/1.73 SQ M.PREDICTED 51.1 mL/min/1.73m*2 Low >60.0 [facility] Comment on above: Result Comment: [facility]???s estimated glomerular filtration rate (eGFR) will [...] of individuals. Performed By: #### L AB15 ####[facility] ([facility])[address] [place] [address] Glucose [Mass/Vol] 133 mg/dL High 70-100 [facility] Comment on above: Performed By: #### L AB15 ####[facility] ([facility])[address] [place] [address] Potassium [Moles/Vol] 4.0 mmol/L Normal 3.5-5.1 [facility] Comment on above: Performed By: #### L AB15 ####[facility] ([facility])[address] [place] [address] Sodium [Moles/Vol] 140 mmol/L Normal 136-145 [facility] Comment on above: Performed By: #### L AB15 ####[facility] ([facility] [place] [address] Urea nitrogen [Mass/Vol] 23 mg/dL Normal 7-25 [facility] Comment on above: Performed By: #### L AB15 ####[facility] ([facility] [place] [place] [address] UREA NITROGEN/CREATININE (MASS RATIO) IN SER/PLAS 15.8 Normal [facility] Comment on above: Performed By: #### L AB15 ####[facility] ([facility] [place] [address] CBCon 01-28-2023 Erythrocyte distribution width (RBC) [Ratio] 13.2 % Normal 11.5-15.0 [facility] Comment on above: Performed By: #### L [id number] ####[facility] ([facility])[address] [place] [address] ERYTHROCYTE MEAN CORPUSCULAR HEMOGLOBIN CONCENTRATION (G/DL) BY AUTOMATED 33.8 g/dL Normal 32.0-35.0 [facility] Comment on above: Performed By: #### L [id number] ####[facility] ([facility] [place] [place] [address] Hematocrit (Bld) [Volume fraction] 39.0 % Normal 39.0-55.0 [facility] Comment on above: Performed By: #### L [id number] ####[facility] ([facility] [place] [place] [address] Hemoglobin (Bld) [Mass/Vol] 13.2 g/dL Normal 13.0-17.0 [facility] Comment on above: Performed By: #### L [id number] ####[facility] ([facility])[address] [place] [address] MCH (RBC) [Entitic mass] 31.1 pg Normal 27.0-33.0 [facility] Comment on above: Performed By: #### L [id number] ####[facility] ([facility])[address] [place] [address] MCV (RBC) [Entitic vol] 91.8 fL Normal 82.0-98.0 [facility] Comment on above: Performed By: #### L [id number] ####[facility] ([facility])[address] [place] [address] PLATELETS (10*3/UL) IN BLOOD AUTOMATED COUNT 141 10*3/uL Low 150-400 [facility] Comment on above: Performed By: #### L [id number] ####[facility] ([facility])[address] [place] [address] RBC (Bld) [#/Vol] 4.25 10*6/uL Normal 4.20-5.70 [facility] Comment on above: Performed By: #### L [id number] ####[facility] ([facility])[address] [place] [address] WBC (Bld) [#/Vol] 6.40 10*3/uL Normal 4.00-10.60 [facility] Comment on above: Performed By: #### L [id number] ####[facility] ([facility])[address] [place] [address] LIPID PANELon 01-28-2023 CHOL/HDL 3.7 mg/dL Normal [facility] Comment on above: Performed By: #### L [id number] #### [facility] ([facility]) [address] [place] [address] Cholesterol [Mass/Vol] 111 mg/dL Low 120-200 [facility] Comment on above: Performed By: #### L [id number] #### [facility] ([facility]) [address] [place] [address] Magnesium [Mass/Vol] 172 mg/dL High 40-149 [facility] Comment on above: Result Comment: TRIG LYCERIDE REFERENCE RANGE: 20 YEARS AND OLDER CARDIOVASCULAR RISK LESS THAN 150 mg/dL LOW RISK 150 TO 199 mg/dL BORDERLINE RISK 200 mg/dL AND GREATER HIGH RISK Performed By: #### L [id number] #### [facility] ([facility] [place]) [address] [place] [address] Magnesium [Mass/Vol] 47 mg/dL Normal 0-160 [facility] Comment on above: Performed By: #### L [id number] #### [facility] ([facility]) [address] [place] [address] Magnesium [Mass/Vol] 30 mg/dL Normal 23-92 [facility] Comment on above: Performed By: #### L [id number] #### [facility] ([facility]) [address] [place] [address] NON HDL CHOL. (LDL+VLDL) 81 Normal [facility] Comment on above: Performed By: #### L [id number] #### [facility] ([facility]) [address] [place] [address] TOTAL VLDL-C 34 mg/dL Normal 0-40 [facility] Comment on above: Performed By: #### L [id number] #### [facility] ([facility]) [address] [place] [address] Orders Onlyon 01-28-2023 Orders Only [id number] Lani Lizama 1950 M Date Provider Department Center 01/28/2023 MARGOT PAUL [facility] Family History Problem Relation Age of Onset Heart attack Mother Other Father Other Brother Heart attack Maternal Grandmother Heart attack Maternal Grandfather Family Status - Relation Status Age at Mother Father Brother Maternal Grandmother Maternal Grandfather Normal [facility] POCT GLUCOSE METER UNSOLICIT ED RESULTSon 01-28-2023 Glucose [Mass/Vol] 155 mg/dL High 70-105 [facility] Comment on above: Order Comment: Waive d Testing in the ED is performed under the ED CLIA certificate #[id number]. Result Comment: [email or web address] Performed By: #### L [id number] ####[facility] ([facility])[address] [place] [address] Glucose [Mass/Vol] 151 mg/dL High 70-105 [facility] Comment on above: Order Comment: Waive d Testing in the ED is performed under the ED CLIA certificate #[id number]. Result Comment: [email or web address] Performed By: #### L [id number] #### [facility] ([facility]) [address] [place] [address] Glucose [Mass/Vol] 133 mg/dL High 70-105 [facility] Comment on above: Order Comment: Waive d Testing in the ED is performed under the ED CLIA certificate #[id number]. Result Comment: [email or web address] Performed By: #### L [id number] #### [facility] ([facility]) [address] [place] [address] 30on 01-27-2023 30 The patient is Moder ately Stable - Low risk of patient condition declining or worsening The patient's goals for the shift include Comfort The clinical goals for the shift include VSS, safety Problem: Pain - Adult Goal: Verbalizes/displays adequate comfort level or baseline comfort level Outcome: Progressing Flowsheets (Taken 01/27/2023 0712) Verbalizes/displays adequate comfort level or baseline comfort level: Encourage patient to monitor pain and request assistance Problem: Safety - Adult Goal: Free from fall injury Outcome: Progressing Problem: Discharge Planning Goal: Discharge to home or other facility with appropriate resources Outcome: Progressing Flowsheets (Taken 01/27/2023 0712) Discharge to home or other facility with appropriate resources: Identify barriers to discharge with patient and caregiver Normal [facility] APTTon 01-27-2023 ACTIVATED PARTIAL THROMBOPLASTIN TIME IN PPP BY COAGULATION ASSAY 113.7 Seconds High 25.0-35.0 [facility] Comment on above: Result Comment: Clin ical significance of the APTT is questionable in the presence of heparin. Performed By: #### L [id number] ####[facility] ([facility])[address] [place] [address] BASIC METABOLIC PANELon 10-2 Anion gap [Moles/Vol] 13 mmol/L Normal 7-20 [facility] Comment on above: Performed By: #### L [id number] ####[facility] ([facility])[address] [place] [address] Calcium [Mass/Vol] 9.4 mg/dL Normal 8.6-10.3 [facility] Comment on above: Performed By: #### L [id number] ####[facility] ([facility])[address] [place] [address] Chloride [Moles/Vol] 106 mmol/L Normal 98-107 [facility] Comment on above: Performed By: #### L [id number] ####[facility] ([facility])[address] [place] [address] CO2 [Moles/Vol] 26 mmol/L Normal 21-31 [facility] Comment on above: Performed By: #### L [id number] ####[facility] ([facility])[address] [place] [address] Creatinine [Mass/Vol] 1.71 mg/dL High 0.70-1.30 [facility] Comment on above: Performed By: #### L [id number] ####[facility] ([facility])[address] [place] [address] GLOMERULAR FILTRATION RATE ML/MIN/1.73 SQ M.PREDICTED 42.3 mL/min/1.73m*2 Low >60.0 [facility] Comment on above: Result Comment: [facility]???s estimated glomerular filtration rate (eGFR) will [...] of individuals. Performed By: #### L [id number] ####[facility] ([facility])[address] [place] [address] Glucose [Mass/Vol] 155 mg/dL High 70-100 [facility] Comment on above: Performed By: #### L [id number] ####[facility] ([facility])[address] [place] [address] Potassium [Moles/Vol] 4.1 mmol/L Normal 3.5-5.1 [facility] Comment on above: Performed By: #### L [id number] ####[facility] ([facility])[address] [place] [address] Sodium [Moles/Vol] 141 mmol/L Normal 136-145 [facility] Comment on above: Performed By: #### L [id number] ####[facility] ([facility])[address] [place] [address] Urea nitrogen [Mass/Vol] 31 mg/dL High 7-25 [facility] Comment on above: Performed By: #### L [id number] ####[facility] ([facility])[address] [place] [address] UREA NITROGEN/CREATININE (MASS RATIO) IN SER/PLAS 18.1 Normal [facility] Comment on above: Performed By: #### L [id number] ####[facility] ([facility])[address] [place] [address] POCT GLUCOSE METER UNSOLICIT ED RESULTSon 01-27-2023 Glucose [Mass/Vol] 145 mg/dL High 70-105 [facility] Comment on above: Order Comment: Waive d Testing in the ED is performed under the ED CLIA certificate #[id number]. Result Comment: [email or web address] Performed By: #### L [id number] ####[facility] ([facility])[address] [place] [address] Glucose [Mass/Vol] 195 mg/dL High 70-105 [facility] Comment on above: Order Comment: Waive d Testing in the ED is performed under the ED CLIA certificate #[id number]. Result Comment: [email or web address] Performed By: #### L [id number] ####[facility] ([facility])[address] [place] [address] 30on 01-26-2023 30 The patient is Moder ately Stable - Low risk of patient condition declining or worsening The patient's goals for the shift include comfort The clinical goals for the shift include VSS, safety Problem: Safety - Adult Goal: Free from fall injury Outcome: Progressing Flowsheets (Taken 01/26/20231999) Free from fall injury: Assess patient frequently for physical needs [facility] 30 The patient is Moder ately Stable - Low risk of patient condition declining or worsening The patient's goals for the shift include Comfort The clinical goals for the shift include VSS, safety Problem: Pain - Adult Goal: Verbalizes/displays adequate comfort level or baseline comfort level Outcome: Progressing Flowsheets (Taken 01/26/2023709) Verbalizes/displays adequate comfort level or baseline comfort level: Encourage patient to monitor pain and request assistance Problem: Safety - Adult Goal: Free from fall injury Outcome: Progressing Problem: Discharge Planning Goal: Discharge to home or other facility with appropriate resources Outcome: Progressing Flowsheets (Taken 01/26/2023713) Discharge to home or other facility with appropriate resources: Identify barriers to discharge with patient and caregiver [facility] 30 The patient is Moder ately Stable - Low risk of patient condition declining or worsening The patient's goals for the shift include rest The clinical goals for the shift include VSS, cath site stable [facility] APTTon 01-26-2023 ACTIVATED PARTIAL THROMBOPLASTIN TIME IN PPP BY COAGULATION ASSAY 80.8 Seconds High 25.0-35.0 [facility] Comment on above: Result Comment: Clin ical significance of the APTT is questionable in the presence of heparin. Performed By: #### L [id number] #### [facility] ([facility]) [address] [place] [address] ACTIVATED PARTIAL THROMBOPLASTIN TIME IN PPP BY COAGULATION ASSAY 30.4 Seconds Normal 25.0-35.0 [facility] Comment on above: Order Comment: Check aPTT every 6 hours while on heparin infusion, or per protocol. Result Comment: Clin ical significance of the APTT is questionable in the presence of heparin. Performed By: #### L [id number] #### [facility] ([facility]) [address] [facility] [address] ACTIVATED PARTIAL THROMBOPLASTIN TIME IN PPP BY COAGULATION ASSAY 30.3 Seconds Normal 25.0-35.0 [facility] Comment on above: Order Comment: Check aPTT every 6 hours while on heparin infusion, or per protocol. Result Comment: Clin ical significance of the APTT is questionable in the presence of heparin. Performed By: #### L [id number] #### [facility] ([facility]) [address] [place] [address] BASIC METABOLIC PANELon 10- Anion gap [Moles/Vol] 13 mmol/L Normal 7-20 [facility] Comment on above: Performed By: #### L [id number] #### [facility] ([facility]) [address] [place] [address] Calcium [Mass/Vol] 9.1 mg/dL Normal 8.6-10.3 [facility] Comment on above: Performed By: #### L [id number] #### [facility] ([facility]) [address] [place] [address] Chloride [Moles/Vol] 107 mmol/L Normal 98-107 [facility] Comment on above: Performed By: #### L [id number] #### [facility] ([facility]) [address] [place] [address] CO2 [Moles/Vol] 22 mmol/L Normal 21-31 [facility] Comment on above: Performed By: #### L [id number] #### [facility] ([facility]) [address] [place] [address] Creatinine [Mass/Vol] 1.77 mg/dL High 0.70-1.30 [facility] Comment on above: Performed By: #### L [id number] #### [facility] ([facility]) [address] [place] [address] GLOMERULAR FILTRATION RATE ML/MIN/1.73 SQ M.PREDICTED 40.6 mL/min/1.73m*2 Low >60.0 [facility] Comment on above: Result Comment: [facility]???s estimated glomerular filtration rate (eGFR) will [...] individuals. Performed By: #### L [id number] #### [facility] ([facility]) [address] [place] [address] Glucose [Mass/Vol] 125 mg/dL High 70-100 [facility] Comment on above: Performed By: #### L [id number] #### [facility] ([facility]) [address] [place] [address] Potassium [Moles/Vol] 4.2 mmol/L Normal 3.5-5.1 [facility] Comment on above: Performed By: #### L [id number] #### [facility] ([facility] [place]) [address] [place] [address] Sodium [Moles/Vol] 138 mmol/L Normal 136-145 [facility] Comment on above: Performed By: #### L [id number] #### [facility] ([facility] [place]) [address] [place] [address] Urea nitrogen [Mass/Vol] 27 mg/dL High 7-25 [facility] Comment on above: Performed By: #### L [id number] #### [facility] ([facility]) [address] [place] [address] UREA NITROGEN/CREATININE (MASS RATIO) IN SER/PLAS 15.3 Normal [facility] Comment on above: Performed By: #### L [id number] #### [facility] ([facility]) [address] [place] [address] CBCon 01-26-2023 Erythrocyte distribution width (RBC) [Ratio] 13.2 % Normal 11.5-15.0 [facility] Comment on above: Performed By: #### L [id number] #### [facility] ([facility]) [address] [place] [address] ERYTHROCYTE MEAN CORPUSCULAR HEMOGLOBIN CONCENTRATION (G/DL) BY AUTOMATED 34.3 g/dL Normal 32.0-35.0 [facility] Comment on above: Performed By: #### L [id number] #### [facility] ([facility]) [address] [place] [address] Hematocrit (Bld) [Volume fraction] 42.0 % Normal 39.0-55.0 [facility] Comment on above: Performed By: #### L [id number] #### [facility] ([facility]) [address] [place] [address] Hemoglobin (Bld) [Mass/Vol] 14.4 g/dL Normal 13.0-17.0 [facility] Comment on above: Performed By: #### L [id number] #### [facility] ([facility]) [address] [place] [address] MCH (RBC) [Entitic mass] 31.0 pg Normal 27.0-33.0 [facility] Comment on above: Performed By: #### L [id number] #### [facility] ([facility]) [address] [place] [address] MCV (RBC) [Entitic vol] 90.3 fL Normal 82.0-98.0 [facility] Comment on above: Performed By: #### L [id number] #### [facility] ([facility]) [address] [place] [address] PLATELETS (10*3/UL) IN BLOOD AUTOMATED COUNT 163 10*3/uL Normal 150-400 [facility] Comment on above: Performed By: #### L [id number] #### [facility] ([facility]) [address] [place] [address] RBC (Bld) [#/Vol] 4.65 10*6/uL Normal 4.20-5.70 [facility] Comment on above: Performed By: #### L [id number] #### [facility] ([facility]) [address] [place] [address] WBC (Bld) [#/Vol] 8.72 10*3/uL Normal 4.00-10.60 [facility] Comment on above: Performed By: #### L [id number] #### [facility] ([facility]) [address] [place] [address] POCT GLUCOSE METER UNSOLICIT ED RESULTSon 01-26-2023 Glucose [Mass/Vol] 155 mg/dL High 70-105 [facility] Comment on above: Order Comment: Waive d Testing in the ED is performed under the ED CLIA certificate #[id number]. Result Comment: [email or web address] Performed By: #### L [id number] ####[facility] ([facility])[address] [place] [address] Glucose [Mass/Vol] 120 mg/dL High 70-105 [facility] Comment on above: Order Comment: Waive d Testing in the ED is performed under the ED CLIA certificate #[id number]. Result Comment: [email or web address] Performed By: #### L [id number] #### [facility] ([facility]) [address] [place] [address] Glucose [Mass/Vol] 155 mg/dL High 70-105 [facility] Comment on above: Order Comment: Waive d Testing in the ED is performed under the ED CLIA certificate #[id number]. Result Comment: [email or web address] Performed By: #### L [id number] ####[facility] ([facility])[address] [place] [address] 30on 01-25-2023 30 The patient is Moder [...] to discharge with patient and caregiver Normal [facility] ANTI-XA (HEPARIN LEVEL)on HEPARIN UNFRACTIONATED (U/ML) IN PPP BY CHROMOGENIC METHOD 0.88 IU/mL High 0.3-0.7 [facility] Comment on above: Order Comment: Anti- Xa (Heparin level) added per protocol. Result Comment: Rhona roxaban and Apixaban will interfere with the anti Xa assay used to monitor UFH and LMWH. Performed By: #### L [id number] ####[facility] ([facility])[address] [place] [address] APTTon 01-25-2023 ACTIVATED PARTIAL THROMBOPLASTIN TIME IN PPP BY COAGULATION ASSAY 153.8 Seconds Critically high 25.0-35.0 [facility] Comment on above: Order Comment: Check aPTT every 6 hours while on heparin infusion, or per protocol. Result Comment: Clin ical significance of the APTT is questionable in the presence of heparin. Performed By: #### L [id number] #### [facility] ([facility]) [address] [place] [address] B-TYPE NATRIURETIC PEPTIDEon 01-25-2023 Natriuretic peptide B (Bld) [Mass/Vol] 579 pg/mL High 0-100 [facility] Comment on above: Performed By: #### L [id number] #### [facility] ([facility]) [address] [place] [address] BASIC METABOLIC PANELon 12-31 Anion gap [Moles/Vol] 15 mmol/L Normal 7-20 [facility] Comment on above: Performed By: #### L [id number] #### [facility] ([facility]) [address] [place] [address] Calcium [Mass/Vol] 9.6 mg/dL Normal 8.6-10.3 [facility] Comment on above: Performed By: #### L [id number] #### [facility] ([facility]) [address] [place] [address] Chloride [Moles/Vol] 103 mmol/L Normal 98-107 [facility] Comment on above: Performed By: #### L [id number] #### [facility] ([facility]) [address] [place] [address] CO2 [Moles/Vol] 27 mmol/L Normal 21-31 [facility] Comment on above: Performed By: #### L [id number] #### [facility] ([facility]) [address] [place] [address] Creatinine [Mass/Vol] 1.83 mg/dL High 0.70-1.30 [facility] Comment on above: Performed By: #### L [id number] #### [facility] ([facility]) [address] [place] [address] GLOMERULAR FILTRATION RATE ML/MIN/1.73 SQ M.PREDICTED 39.0 mL/min/1.73m*2 Low >60.0 [facility] Comment on above: Result Comment: [facility]???s estimated glomerular filtration rate (eGFR) will [...] individuals. Performed By: #### L [id number] #### [facility] ([place]) [address] [place] [address] Glucose [Mass/Vol] 168 mg/dL High 70-100 [facility] Comment on above: Performed By: #### L [id number] #### [facility] ([facility]) [address] [place] [address] Potassium [Moles/Vol] 4.7 mmol/L Normal 3.5-5.1 [facility] Comment on above: Performed By: #### L [id number] #### [facility] ([facility]) [address] [place] [address] Sodium [Moles/Vol] 140 mmol/L Normal 136-145 [facility] Comment on above: Performed By: #### L [id number] #### [facility] ([facility]) [address] [place] [address] Urea nitrogen [Mass/Vol] 28 mg/dL High 7-25 [facility] Comment on above: Performed By: #### L [id number] #### [facility] ([facility] [place] [address] [place] [address] UREA NITROGEN/CREATININE (MASS RATIO) IN SER/PLAS 15.3 Normal [facility] Comment on above: Performed By: #### L [id number] #### [facility] ([facility] [place]) [address] [place] [address] CBCon 01-25-2023 Erythrocyte distribution width (RBC) [Ratio] 13.1 % Normal 11.5-15.0 [facility] Comment on above: Performed By: #### L [id number] ####[facility] ([facility])[address] [place] [address] ERYTHROCYTE MEAN CORPUSCULAR HEMOGLOBIN CONCENTRATION (G/DL) BY AUTOMATED 33.7 g/dL Normal 32.0-35.0 [facility] Comment on above: Performed By: #### L [id number] ####[facility] ([facility])[address] [place] [address] Hematocrit (Bld) [Volume fraction] 46.3 % Normal 39.0-55.0 [facility] Comment on above: Performed By: #### L [id number] ####[facility] ([facility])[address] [place] [address] Hemoglobin (Bld) [Mass/Vol] 15.6 g/dL Normal 13.0-17.0 [facility] Comment on above: Performed By: #### L [id number] ####[facility] ([facility])[address] [place] [address] MCH (RBC) [Entitic mass] 30.7 pg Normal 27.0-33.0 [facility] Comment on above: Performed By: #### L [id number] ####[facility] ([facility])[address] [place] [address] MCV (RBC) [Entitic vol] 91.1 fL Normal 82.0-98.0 [facility] Comment on above: Performed By: #### L [id number] ####[facility] ([facility])[address] [place] [address] PLATELETS (10*3/UL) IN BLOOD AUTOMATED COUNT 185 10*3/uL Normal 150-400 [facility] Comment on above: Performed By: #### L [id number] ####[facility] ([facility])[address] [place] [address] RBC (Bld) [#/Vol] 5.08 10*6/uL Normal 4.20-5.70 [facility] Comment on above: Performed By: #### L [id number] ####[facility] ([facility])[address] [place] [address] WBC (Bld) [#/Vol] 8.91 10*3/uL Normal 4.00-10.60 [facility] Comment on above: Performed By: #### L [id number] ####[facility] ([facility])[address] [place] [address] CONSULTon 01-25-2023 CONSULT ------ [facility] Christian Bergman MD at 01/25/2023 [...] Note Reason for Consult: NSTEMI HPI: Lani Lizama is a 72 y.o. male was a direct transfer from [facility], the patient is known to have [...] artery stenosis, Coronary artery disease, Diabetes mellitus ([facility]), Hyperlipidemia, Hypertension, PVD (peripheral vascular disease) (CMS/HCC), and Third degree heart block (CMS/HCC). Surgical History He has a past surgical [...] mg by mouth in the morning. HYDROcodone-acetaminophen ([place]) 5-325 mg tablet TAKE 1 TABLET BY [...] 138/71 [phone] 10 (more content not included)... Normal [facility] HPon 01-25-2023 HP H&P reviewed. The jaron mark was examined and there are no changes to the H&P. 72 y.o. male was a direct transfer from [facility], the patient is known to have Coronary artery disease s/p CABG and multiple PCI in the past, PAD, hyperlipidemia, hypertension. The patient has been having worsening chest pain for the last 2 months which got much worse yesterday, the patient went to the ER his troponin was positive he was referred for further evaluation management to [facility]. The patient had coronary angiography and December 2021 showed patent LAD/MENJIVAR graft, patent SVG to OM and PDA. Patient will undergo LHC to evaluate CAD and look for patency of grafts and previously placed stents. Risks and benefits were discussed in detail with patient and agreed to proceed. Normal [facility] PLATELET COUNTon 01-25-2023 PLATELETS (10*3/UL) IN BLOOD AUTOMATED COUNT 183 10*3/uL Normal 150-400 [facility] Comment on above: Performed By: #### L [id number] #### [facility] ([facility]) [address] [place] [address] POCT GLUCOSE METER UNSOLICIT ED RESULTSon 01-25-2023 Glucose [Mass/Vol] 211 mg/dL High 70-105 [facility] Comment on above: Order Comment: Waive d Testing in the ED is performed under the ED CLIA certificate #[id number]. Result Comment: [email or web address] [email or web address] Performed By: #### L [id number] #### [facility] ([facility]) [address] [place] [address] Glucose [Mass/Vol] 143 mg/dL High 70-105 [facility] Comment on above: Order Comment: Waive d Testing in the ED is performed under the ED CLIA certificate #[id number]. Result Comment: [email or web address] Performed By: #### L AB15 #### [facility] ([facility]) [address] [place] [address] TROPONIN Ion 01-25-2023 Troponin I.cardiac [Mass/Vol] 1.75 ng/mL Critically high 0.00-0.04 [facility] Comment on above: Result Comment: ADILIA BRYANT INITIAL CRITICAL HIGH; RESPUN AND RETESTED Performed By: #### L [id number] #### [facility] ([facility]) [address] [place] [address] Office Visiton 01-17-2023 Follow-up visit [id number] Lani Lizama 1950 M Date Provider Department Center 01/17/2023 PINKY JULES MARCELINO Armas Family History Problem Relation Age of Onset Heart attack Mother Other Father Other Brother Heart attack Maternal Grandmother Heart attack Maternal Grandfather Family Status - Relation Status Age at Mother Father Brother Maternal Grandmother Maternal Grandfather Level of Service:49948 [place] OFFICE/OUTPATIENT ESTABLISHED MOD MDM 30-39 MIN Normal [facility] Office Visiton 10-09-2022 Follow-up visit [id number] Lani Lizama 1950 M Date Provider Department Center 10/09/2022 DEISY SCHWARTZ MARCELINO Armas Family History Problem Relation Age of Onset Heart attack Mother Other Father Other Brother Heart attack Maternal Grandmother Heart attack Maternal Grandfather Family Status - Relation Status Age at Mother Father Brother Maternal Grandmother Maternal Grandfather Level of Service:03237 [place] OFFICE/OUTPATIENT ESTABLISHED MOD MDM 30-39 MIN Normal [facility] CT CHEST WO CONon 05-11-2023 CT CHEST WO CON EXAMINATION: CT CHES [...] by: HAZEL SCHILLING Date: 2022-08-09 14:[address] [facility] Office Visiton 07-24-2022 Follow-up visit [id number] Lani Lizama 1950 M Date Provider Department Center 07/24/2022 [id number] SOARES [facility] Family History Problem Relation Age of Onset Heart attack Mother Other Father Other Brother Heart attack Maternal Grandmother Heart attack Maternal Grandfather Family Status - Relation Status Age at Mother Father Brother Maternal Grandmother Maternal Grandfather Level of Service:84710 [place] OFFICE/OUTPATIENT ESTABLISHED MOD MDM 30-39 MIN Reason for Visit and Comments: Hypertension [073248] Coronary Artery Disease [187] Normal [facility] A1C HEMOGLOBINon 06-26-2022 HbA1c (Bld) [Mass fraction] 7.4 % [employer] Other Glucose - FINGER STICKon Glucose [Mass/Vol] 267 mg/dL [employer] Other HbA1c (Bld) [Mass fraction]o n 06-26-2022 A1C HEMOGLOBIN [employer] Other PTH INTACTon 06-26-2022 PTH, Intact 37 pg/mL Normal 15-[address] [facility] Comment on above: Performed By: #### C MP, CMADM #### [facility] [address] [place] [address] Dr. Mirza Sadler 37on 06-25-2022 37 -Increase Carvedilol to 12.5 mg twice a day. Take two pills of current medication, -Check blood pressure at least once a day and bring log to follow-up -Bring blood pressure monitor to follow-up appointment Normal [facility] FERRITINon 06-25-2022 Ferritin [Mass/Vol] 269.0 ng/mL Normal 26.0-388.[address] [facility] Comment on above: Performed By: #### B EMPLOYMENT LEGAL ASSISTANT #### [facility] [address] [place] [address] Dr. Mirza Sadler HEMOGRAM AND PLATELon 2022 Hematocrit (Bld) [Volume fraction] 44.7 % Normal 42.0-54.[address] [facility] Comment on above: Performed By: #### P T, PTT #### [facility] [address] [place] [address] Dr. Mirza Sadler Hemoglobin (Bld) [Mass/Vol] 15.1 g/dL Normal 14.0-18.[address] [facility] Comment on above: Performed By: #### P T, PTT #### [facility] [address] [place] [address] Dr. Mirza Sadler MCH (RBC) [Entitic mass] 30.0 pg Normal 25.9-34.[address] [facility] Comment on above: Performed By: #### P T, PTT #### [facility] [address] [place] [address] Dr. Mirza Sadler MCHC (RBC) [Mass/Vol] 33.8 g/dL Normal 29.9-35.2 [facility] Comment on above: Performed By: #### P T, PTT #### [facility] [address] [place] [address] Dr. Mirza Sadler MCV (RBC) [Entitic vol] 88.9 fL Normal 80.0-94.0 [facility] Comment on above: Performed By: #### P T, PTT #### [facility] [address] [place] [address] Dr. Mirza Sadler PLT 199 103/ul Normal 150-450 [facility] Comment on above: Performed By: #### P T, PTT #### [facility] [address] [place] [address] Dr. Mirza Sadler RBC 5.03 106/ul Normal 4.70-6.10 [facility] Comment on above: Performed By: #### P T, PTT #### [facility] [address] [place] [address] Dr. Mirza Sadler WBC 8.7 103/ul Normal 4.0-11.0 [facility] Comment on above: Performed By: #### P T, PTT #### [facility] [address] [place] [address] Dr. Mirza Sadler IRON AND TIBCon 06-25-2022 % SATURATION 28.6 % Normal [facility] Comment on above: Performed By: #### B EMPLOYMENT LEGAL ASSISTANT #### [facility] [address] [place] [address] Dr. Mirza Sadler Iron [Mass/Vol] 82.0 ug/dL Normal 65.0-175.0 [facility] Comment on above: Performed By: #### B EMPLOYMENT LEGAL ASSISTANT #### [facility] [address] [place] [address] Dr. Mirza Sadler TIBC DIRECT 287.0 ug/dL Normal 250.0-450. 0 [facility] Comment on above: Performed By: #### B EMPLOYMENT LEGAL ASSISTANT #### [facility] [address] [place] [address] Dr. Mirza Sadler MAGNESIUMon 06-25-2022 Magnesium [Mass/Vol] 2.0 mg/dL Normal 1.8-2.[address] [facility] Comment on above: Performed By: #### B EMPLOYMENT LEGAL ASSISTANT #### [facility] [address] [address] [address] Mirza Sadler Office Visiton 06-25-2022 Follow-up visit [id number] Lnai Lizama 1950 M Date Provider Department Center 06/25/2022 [id number] BRADY [facility] Family History Problem Relation Age of Onset Heart attack Mother Other Father Other Brother Heart attack Maternal Grandmother Heart attack Maternal Grandfather Family Status - Relation Status Age at Mother Father Brother Maternal Grandmother Maternal Grandfather Level of Service:86740 [place] OFFICE/OUTPATIENT ESTABLISHED MOD MDM 30-39 MIN Reason for Visit and Comments: Chest Pain [022335] Coronary Artery Disease [187] Normal [facility] RENAL FUNCTION PANELon 06-25 Albumin [Mass/Vol] 4.2 g/dL Normal 3.4-5.0 [facility] Comment on above: Performed By: #### B EMPLOYMENT LEGAL ASSISTANT #### [facility] [address] [address] [address] Mirza Sadler Calcium [Mass/Vol] 9.3 mg/dL Normal 8.5-10.1 [facility] Comment on above: Performed By: #### B EMPLOYMENT LEGAL ASSISTANT #### [facility] [address] [address] [address] Mirza Sadler Chloride [Moles/Vol] 108 mmol/L Critically high 98-107 [facility] Comment on above: Performed By: #### B EMPLOYMENT LEGAL ASSISTANT #### [facility] [address] [address] [address] Mirza Sadler CO2 [Moles/Vol] 29.5 mmol/L Normal 21.0-32.0 [facility] Comment on above: Performed By: #### B EMPLOYMENT LEGAL ASSISTANT #### [facility] [address] [address] [address] Mirza Sadler Creatinine [Mass/Vol] 1.87 mg/dL Critically high 0.70-1.30 [facility] Comment on above: Performed By: #### B EMPLOYMENT LEGAL ASSISTANT #### [facility] [address] [address] [address] Mirza Sadler EGFR-AF FIJIAN 43 mL/min/1.73m2 Critically low >=[address] [facility] Comment on above: Performed By: #### B EMPLOYMENT LEGAL ASSISTANT #### [facility] [address] [address] [address] Mirza Sadler EGFR-NON AF FIJIAN 36 mL/min/1.73m2 Critically low >=[address] [facility] Comment on above: Performed By: #### B EMPLOYMENT LEGAL ASSISTANT #### [facility] [address] [address] [address] Mirza Sadler Glucose [Mass/Vol] 181 mg/dL Critically high 74-106 [facility] Comment on above: Performed By: #### B EMPLOYMENT LEGAL ASSISTANT #### [facility] [address] [address] [address] Mriza Sadler Phosphate [Mass/Vol] 4.8 mg/dL Critically high 2.6-4.[address] [facility] Comment on above: Performed By: #### B EMPLOYMENT LEGAL ASSISTANT #### [facility] [address] [address] [address] Mirza Sadler Potassium [Moles/Vol] 4.8 mmol/L Normal 3.5-5.[address] [facility] Comment on above: Performed By: #### B EMPLOYMENT LEGAL ASSISTANT #### [facility] [address] [address] [address] Mirza Sadler Sodium [Moles/Vol] 146 mmol/L Critically high 136-145 [facility] Comment on above: Performed By: #### B EMPLOYMENT LEGAL ASSISTANT #### [facility] [address] [address] [address] Mirza Sadler Urea nitrogen [Mass/Vol] 40.0 mg/dL Critically high 7.0-18.[address] [facility] Comment on above: Performed By: #### B EMPLOYMENT LEGAL ASSISTANT #### [facility] [address] [address] [address] Mirza Sadler UA RANDOM W/MICROSCOPICon BACTERIA NONE SEEN Normal NONE SEEN [facility] Comment on above: Performed By: #### H STROPN #### [facility] [address] [address] [address] Mirza Sadler Bilirubin Ql (U) Negative Normal NEGATIVE [facility] Comment on above: Performed By: #### H STROPN #### [facility] [address] [address] [address] Mirza Sadler CAST NONE SEEN Normal NONE SEEN [facility] Comment on above: Performed By: #### H STROPN #### [facility] [address] [address] [address] Mirza Sadler Clarity (U) CLEAR Normal CLEAR [facility] Comment on above: Performed By: #### H STROPN #### [facility] [address] [address] [address] Mirza Sadler Color (U) LT. YELLOW Normal YELLOW [facility] Comment on above: Performed By: #### H STROPN #### [facility] [address] [address] [address] Mirza Sadler Crystals LM Nom (Urine sed) NONE SEEN Normal NONE SEEN [facility] Comment on above: Performed By: #### H STROPN #### [facility] [address] [place] [address] Dr. Mirza Sadler Epithelial cells LM Ql (Urine sed) FEW Abnormal NONE SEEN /RARE [facility] Comment on above: Performed By: #### H STROPN #### [facility] [address] [place] [address] Dr. Mirza Sadler Glucose Ql (U) 500 mg/dl Abnormal NEGATIVE [facility] Comment on above: Performed By: #### H STROPN #### [facility] [address] [address] [address] Mirza Sadler Hemoglobin Ql (U) Negative Normal NEGATIVE [facility] Comment on above: Performed By: #### H STROPN #### [facility] [address] [address] [address] Mirza Sadler Ketones Ql (U) Negative Normal NEGATIVE [facility] Comment on above: Performed By: #### H STROPN #### [facility] [address] [place] [address] Dr. Mirza Sadler LEUKOCYTES Negative Normal NEGATIVE [facility] Comment on above: Performed By: #### H STROPN #### [facility] [address] [address] [address] Mirza Sadler MUCOUS NONE SEEN Normal NONE SEEN [facility] Comment on above: Performed By: #### H STROPN #### [facility] [address] [address] [address] Mirza Sadler Nitrite Ql (U) Negative Normal NEGATIVE [facility] Comment on above: Performed By: #### H STROPN #### [facility] [address] [place] [address] Dr. Mirza Sadler pH (U) 5.5 [pH] Normal 5-[address] [facility] Comment on above: Performed By: #### H STROPN #### [facility] [address] [place] [address] Dr. Mirza Sadler RBC 0-2 Normal 0-[address] [facility] Comment on above: Performed By: #### H STROPN #### [facility] [address] [place] [address] Dr. Mirza Sadler SPEC GRAVITY 1.015 Normal 1.005-<=1. [address] [facility] Comment on above: Performed By: #### H STROPN #### [facility] [address] [place] [address] Dr. Mirza Sadler UA PROTEIN Negative Normal NEGATIVE/ TRACE [facility] Comment on above: Performed By: #### H STROPN #### [facility] [address] [place] [address] Dr. Mirza Sadler Urobilinogen Qn (U) 0.2 {Luisito'U}/dL Normal 0.2 - 1. [address] [facility] Comment on above: Performed By: #### H STROPN #### [facility] [address] [place] [address] Dr. Mirza Sadler WBC NONE SEEN Normal NONE SEEN [facility] Comment on above: Performed By: #### H STROPN #### [facility] [address] [place] [address] Dr. Mirza Sadler URIC ACID SERUMon 06-25-2022 Urate [Mass/Vol] 6.1 mg/dL Normal 3.5-7.2 [facility] Comment on above: Performed By: #### B EMPLOYMENT LEGAL ASSISTANT #### [facility] [address] [place] [address] Dr. Mirza Sadler URINE T PROTEIN CREAT RATIOo n 06-25-2022 Protein (U) [Mass/Vol] 9.7 mg/dL Normal <=12.[address] [facility] Comment on above: Performed By: #### C TANIA, CMADM #### [facility] [address] [place] [address] Dr. Mirza Sadler UR PROT CREAT RAT 0.14 Normal [facility] Comment on above: Performed By: #### C TANIA, CMADM #### [facility] [address] [place] [address] Dr. Mirza Sadler URINE CREAT 71.45 mg/dL Normal 20.00-300. [address] [facility] Comment on above: Performed By: #### C TANIA, CMADM #### [facility] [address] [place] [address] Dr. Mirza Sadler VITAMIN D 25 OHon 06-25-2022 VIT D 25-OH 44.7 ng/mL Normal [facility] Comment on above: Performed By: #### E RUR #### [facility] [address] [place] [address] Dr. Mirza Sadler VIT D RANGES SEE BELOW Normal [facility] Comment on above: Result Comment: <20 ng/mL Vit D deficient 20 - <30 ng/mL Vit D insufficient 30 - 100 ng/mL Vit D sufficient >100 ng/mL Potential Toxicity Performed By: #### E RUR #### [facility] [address] [place] [address] Dr. Mirza Sadler LIPID PROFILEon 06-18-2022 CHOL-HDL RATIO NORM SEE BELOW Normal [facility] Comment on above: Result Comment: 3.3 - 4.4 LOW RISK 4.4 - 7.1 AVERAGE RISK 7.1 - 11.0 MODERATE RISK >11.0 HIGH RISK Performed By: #### H STROPN #### [facility] [address] [address] [address] Mirza Sadler Cholesterol [Mass/Vol] 136 mg/dL Normal <=[address] [facility] Comment on above: Performed By: #### H STROPN #### [facility] [address] [address] [address] Mirza Sadler Cholesterol in HDL [Mass/Vol] 38 mg/dL Critically low 40-[address] [facility] Comment on above: Performed By: #### H STROPN #### [facility] [address] [address] [address] Mirza Sadler Cholesterol in LDL [Mass/Vol] 69.6 mg/dL Normal [facility] Comment on above: Performed By: #### H STROPN #### [facility] [address] [address] [address] Mirza Sadler Cholesterol.total/Cho lesterol in HDL [Mass ratio] 3.6 {ratio} Normal [facility] Comment on above: Performed By: #### H STROPN #### [facility] [address] [address] [address] Mirza Sadler HDL NORMAL > or = 60 mg/dl - LO W CARDIOVASCULAR RISK <40 mg/dl - HIGH CARDIOVASCULAR RISK Normal [facility] Comment on above: Performed By: #### H STROPN #### [facility] [address] [address] [address] Mirza Sadler LDL CALC NORMAL SEE BELOW Normal [facility] Comment on above: Result Comment: <100 mg/dl OPTIMAL 100 - 129 mg/dl NEAR OR ABOVE OPTIMAL 130 - 159 mg/dl BORDERLINE HIGH 160 - 189 mg/dl HIGH >190 mg/dl VERY HIGH Performed By: #### H STROPN #### [facility] [address] [address] [address] Mirza Sadler Triglyceride [Mass/Vol] 142 mg/dL Normal <=[address] [facility] Comment on above: Performed By: #### H STROPN #### [facility] [address] [address] [address] Mirza Sadler VLDL CALC 28.4 mg/dL Normal [facility] Comment on above: Performed By: #### H STROPN #### [facility] [address] [address] [address] CHEST WO CONon [...] by: HIGINIO FLANAGAN Date: 2022-06-05 16:[address] [facility] CT CHEST WO CON [employer] Other PROF CHEM 8 (BAS METB)on Anion gap [Moles/Vol] 10.2 mmol/L Normal [facility] Comment on above: Performed By: #### B EMPLOYMENT LEGAL ASSISTANT #### [facility] [address] [place], [place] [address] Dr. Mirza Sadler Calcium [Mass/Vol] 8.9 mg/dL Normal 8.5-10.1 [facility] Comment on above: Performed By: #### B EMPLOYMENT LEGAL ASSISTANT #### [facility] [address] [address] [address] Mirza Sadler Chloride [Moles/Vol] 101 mmol/L Normal 98-[address] [facility] Comment on above: Performed By: #### B EMPLOYMENT LEGAL ASSISTANT #### [facility] [address] [address] [address] Mirza Sadler CO2 [Moles/Vol] 31.2 mmol/L Normal 21.0-32.0 [facility] Comment on above: Performed By: #### B EMPLOYMENT LEGAL ASSISTANT #### [facility] [address] [address] [address] Mirza Sadler Creatinine [Mass/Vol] 1.91 mg/dL Critically high 0.70-1.[address] [facility] Comment on above: Performed By: #### B EMPLOYMENT LEGAL ASSISTANT #### [facility] [address] [address] [address] Mirza Sadler EGFR-AF FIJIAN 42 mL/min/1.73m2 Critically low >=[address] [facility] Comment on above: Performed By: #### B EMPLOYMENT LEGAL ASSISTANT #### [facility] [address] [address] [address] Mirza Sadler EGFR-NON AF FIJIAN 35 mL/min/1.73m2 Critically low >=[address] [facility] Comment on above: Performed By: #### B EMPLOYMENT LEGAL ASSISTANT #### [facility] [address] [address] [address] Mirza Sadler Glucose [Mass/Vol] 242 mg/dL Critically high 74-106 [facility] Comment on above: Performed By: #### B EMPLOYMENT LEGAL ASSISTANT #### [facility] [address] [address] [address] Mirza Sadler Potassium [Moles/Vol] 4.4 mmol/L Normal 3.5-5.[address] [facility] Comment on above: Performed By: #### B EMPLOYMENT LEGAL ASSISTANT #### [facility] [address] [address] [address] Mirza Sadler Sodium [Moles/Vol] 138 mmol/L Normal 136-145 [facility] Comment on above: Performed By: #### B EMPLOYMENT LEGAL ASSISTANT #### [facility] [address] [address] [address] Mirza Sadler Urea nitrogen [Mass/Vol] 33.0 mg/dL Critically high 7.0-18.[address] [facility] Comment on above: Performed By: #### B EMPLOYMENT LEGAL ASSISTANT #### [facility] [address] [place] [address] Dr. Mirza Sadler Urea nitrogen/Creatinine [Mass ratio] 17.3 mg/mg Normal [facility] Comment on above: Performed By: #### B EMPLOYMENT LEGAL ASSISTANT #### [facility] [address] [place] [address] Dr. Mirza Sadler PROF CHEM 8 (BAS METB)on Anion gap [Moles/Vol] 10.7 mmol/L Normal [facility] Comment on above: Performed By: #### P T, PTT #### [facility] [address] [place] [address] Dr. Mirza Sadler Calcium [Mass/Vol] 8.9 mg/dL Normal 8.5-10.1 [facility] Comment on above: Performed By: #### P T, PTT #### [facility] [address] [place] [address] Dr. Mirza Sadler Chloride [Moles/Vol] 104 mmol/L Normal 98-[address] [facility] Comment on above: Performed By: #### P T, PTT #### [facility] [address] [place] [address] Dr. Mirza Sadler CO2 [Moles/Vol] 29.4 mmol/L Normal 21.0-32.0 [facility] Comment on above: Performed By: #### P T, PTT #### [facility] [address] [place] [address] Dr. Mirza Sadler Creatinine [Mass/Vol] 1.75 mg/dL Critically high 0.70-1.[address] [facility] Comment on above: Performed By: #### P T, PTT #### [facility] [address] [place] [address] Dr. Mirza Sadler EGFR-AF FIJIAN 47 mL/min/1.73m2 Critically low >=60 [facility] Comment on above: Performed By: #### P T, PTT #### [facility] [address] [address] [address] Mirza Sadler EGFR-NON AF FIJIAN 39 mL/min/1.73m2 Critically low >=[address] [facility] Comment on above: Performed By: #### P T, PTT #### [facility] [address] [address] [address] Mirza Sadler Glucose [Mass/Vol] 191 mg/dL Critically high 74-106 [facility] Comment on above: Performed By: #### P T, PTT #### [facility] [address] [address] [address] Mirza Sadler Potassium [Moles/Vol] 4.1 mmol/L Normal 3.5-5.[address] [facility] Comment on above: Performed By: #### P T, PTT #### [facility] [address] [address] [address] Mirza Sadler Sodium [Moles/Vol] 140 mmol/L Normal 136-145 [facility] Comment on above: Performed By: #### P T, PTT #### [facility] [address] [address] [address] Mirza Sadler Urea nitrogen [Mass/Vol] 31.0 mg/dL Critically high 7.0-18.[address] [facility] Comment on above: Performed By: #### P T, PTT #### [facility] [address] [address] [address] Mirza Sadler Urea nitrogen/Creatinine [Mass ratio] 17.7 mg/mg Normal [facility] Comment on above: Performed By: #### P T, PTT #### [facility] [address] [address] [address] Mirza Sadler XR CHEST 2 Von 03-22-2022 XR CHEST [...] by: HIGINIO FLANAGAN Date: 2022-03-22 16:[address] [facility] A1C HEMOGLOBINon 03-20-2022 HbA1c (Bld) [Mass fraction] 6.7 % [employer] Other Glucose - FINGER STICKon Glucose [Mass/Vol] 193 mg/dL [employer] Other HbA1c (Bld) [Mass fraction]o n 03-20-2022 A1C HEMOGLOBIN [employer] Other BNPon 03-13-2022 Natriuretic peptide B (Bld) [Mass/Vol] 4825.0 pg/mL Critically high <=900.[address] [facility] Comment on above: Performed By: #### E RUR #### [facility] [address] [place] [address] Dr. Mirza Sadler CBC AUTO DIFFon 03-13-2022 BASO # 0.0 103/ul Normal 0.0-0.[address] [facility] Comment on above: Performed By: #### E RUR #### [facility] [address] [place] [address] Dr. Mirza Sadler Basophils/100 WBC (Bld) 0.6 % Normal 0.2-2.[address] [facility] Comment on above: Performed By: #### E RUR #### [facility] [address] [address] [address] Mirza Sadler EO # 0.1 103/ul Normal 0.0-0.[address] [facility] Comment on above: Performed By: #### E RUR #### [facility] [address] [place] [address] Dr. Mirza Sadler Eosinophils/100 WBC (Bld) 1.8 % Normal 0.9-7.[address] [facility] Comment on above: Performed By: #### E RUR #### [facility] [address] [place] [address] Dr. Mirza Sadler Erythrocyte distribution width (RBC) [Ratio] 14.4 % Normal 11.0-15.[address] [facility] Comment on above: Performed By: #### E RUR #### [facility] [address] [place] [address] Dr. Mirza Sadler Hematocrit (Bld) [Volume fraction] 36.1 % Critically low 42.0-54.[address] [facility] Comment on above: Performed By: #### E RUR #### [facility] [address] [place] [address] Dr. Mirza Sadler Hemoglobin (Bld) [Mass/Vol] 11.9 g/dL Critically low 14.0-18.[address] [facility] Comment on above: Performed By: #### E RUR #### [facility] [address] [place] [address] Dr. Mirza Sadler IG # 0.02 10e3/ul Normal 0.00-0.[address] [facility] Comment on above: Performed By: #### E RUR #### [facility] [address] [place] [address] Dr. Mirza Sadler IG % 0.3 % Normal 0.0-0.[address] [facility] Comment on above: Performed By: #### E RUR #### [facility] [address] [place] [address] Dr. Mirza Sadler LYMPH # 1.5 103/ul Normal 1.2-3.[address] [facility] Comment on above: Performed By: #### E RUR #### [facility] [address] [place] [address] Dr. Mirza Sadler Lymphocytes/100 WBC (Bld) 22.6 % Normal 20.5-60.[address] [facility] Comment on above: Performed By: #### E RUR #### [facility] [address] [place] [address] Dr. Mirza Sadler MANUAL DIFF REQ NO Normal [facility] Comment on above: Performed By: #### E RUR #### [facility] [address] [place] [address] Dr. Mirza Sadler MCH (RBC) [Entitic mass] 29.0 pg Normal 25.9-34.[address] [facility] Comment on above: Performed By: #### E RUR #### [facility] [address] [place] [address] Dr. Mirza Sadler MCHC (RBC) [Mass/Vol] 33.0 g/dL Normal 29.9-35.[address] [facility] Comment on above: Performed By: #### E RUR #### [facility] [address] [place] [address] Dr. Mirza Sadler MCV (RBC) [Entitic vol] 88.0 fL Normal 80.0-94.[address] [facility] Comment on above: Performed By: #### E RUR #### [facility] [address] [place] [address] Dr. Mirza Sadler MONO # 0.7 103/ul Normal 0.3-0.[address] [facility] Comment on above: Performed By: #### E RUR #### [facility] [address] [place] [address] Dr. Mirza Sadler Monocytes/100 WBC (Bld) 10.2 % Normal 1.7-12.[address] [facility] Comment on above: Performed By: #### E RUR #### [facility] [address] [place] [address] Dr. Mirza Sadler NEUT # 4.3 103/ul Normal 1.4-6.5 [facility] Comment on above: Performed By: #### E RUR #### [facility] [address] [place] [address] Dr. Mirza Sadler Neutrophils/100 WBC (Bld) 64.5 % Normal 43.0-75.[address] [facility] Comment on above: Performed By: #### E RUR #### [facility] [address] [place] [address] Dr. Mirza Sadler Platelet mean volume (Bld) [Entitic vol] 9.7 fL Normal 9.5-13.[address] [facility] Comment on above: Performed By: #### E RUR #### [facility] [address] [address] [address] Mirza Sadler PLT 149 103/ul Critically low 150-450 [facility] Comment on above: Performed By: #### E RUR #### [facility] [address] [address] [address] Mirza Sadler RBC 4.10 106/ul Critically low 4.70-6.10 [facility] Comment on above: Performed By: #### E RUR #### [facility] [address] [address] [address] Mirza Sadler WBC 6.6 103/ul Normal 4.0-11.[address] [facility] Comment on above: Performed By: #### E RUR #### [facility] [address] [place] [address] Dr. Mirza Sadler PROF CHEM 8 (BAS METB)on Anion gap [Moles/Vol] 14.6 mmol/L Normal [facility] Comment on above: Performed By: #### E RUR #### [facility] [address] [place] [address] Dr. Mirza Sadler Calcium [Mass/Vol] 8.5 mg/dL Normal 8.5-10.1 [facility] Comment on above: Performed By: #### E RUR #### [facility] [address] [place] [address] Dr. Mirza Sadler Chloride [Moles/Vol] 104 mmol/L Normal 98-[address] [facility] Comment on above: Performed By: #### E RUR #### [facility] [address] [address] [address] Mirza Sadler CO2 [Moles/Vol] 22.7 mmol/L Normal 21.0-32.0 [facility] Comment on above: Performed By: #### E RUR #### [facility] [address] [place] [address] Dr. Mirza Sadler Creatinine [Mass/Vol] 1.78 mg/dL Critically high 0.70-1.[address] [facility] Comment on above: Performed By: #### E RUR #### [facility] [address] [place] [address] Dr. Mirza Sadler EGFR-AF FIJIAN 46 mL/min/1.73m2 Critically low >=[address] [facility] Comment on above: Performed By: #### E RUR #### [facility] [address] [place] [address] Dr. Mirza Sadler EGFR-NON AF FIJIAN 38 mL/min/1.73m2 Critically low >=[address] [facility] Comment on above: Performed By: #### E RUR #### [facility] [address] [place] [address] Dr. Mirza Sadler Glucose [Mass/Vol] 121 mg/dL Critically high 74-[address] [facility] Comment on above: Performed By: #### E RUR #### [facility] [address] [place] [address] Dr. Mirza Sadler Potassium [Moles/Vol] 3.3 mmol/L Critically low 3.5-5.[address] [facility] Comment on above: Performed By: #### E RUR #### [facility] [address] [place] [address] Dr. Mirza Sadler Sodium [Moles/Vol] 138 mmol/L Normal 136-145 [facility] Comment on above: Performed By: #### E RUR #### [facility] [address] [place] [address] Dr. Mirza Sadler Urea nitrogen [Mass/Vol] 30.0 mg/dL Critically high 7.0-18.[address] [facility] Comment on above: Performed By: #### E RUR #### [facility] [address] [place] [address] Dr. Mirza Sadler Urea nitrogen/Creatinine [Mass ratio] 16.9 mg/mg Normal [facility] Comment on above: Performed By: #### E RUR #### [facility] [address] [place] [address] Dr. Mirza Sadler BNPon 12-12-2022 Natriuretic peptide B (Bld) [Mass/Vol] 7452.0 pg/mL Critically high <=900.0 [facility] Comment on above: Performed By: #### C MP, CMADM #### [facility] [address] [place] [address] Dr. Mirza Sadler CBC AUTO DIFFon 03-12-2022 BASO # 0.0 103/ul Normal 0.0-0.1 [facility] Comment on above: Performed By: #### P T, PTT #### [facility] [address] [place] [address] Dr. Mirza Sadler Basophils/100 WBC (Bld) 0.4 % Normal 0.2-2.[address] [facility] Comment on above: Performed By: #### P T, PTT #### [facility] [address] [place] [address] Dr. Mirza Sadler EO # 0.0 103/ul Normal 0.0-0.7 [facility] Comment on above: Performed By: #### P T, PTT #### [facility] [address] [place] [address] Dr. Mirza Sadler Eosinophils/100 WBC (Bld) 0.2 % Critically low 0.9-7.[address] [facility] Comment on above: Performed By: #### P T, PTT #### [facility] [address] [place] [address] Dr. Mirza Sadler Erythrocyte distribution width (RBC) [Ratio] 14.6 % Normal 11.0-15.0 [facility] Comment on above: Performed By: #### P T, PTT #### [facility] [address] [place] [address] Dr. Mirza Sadler Hematocrit (Bld) [Volume fraction] 37.8 % Critically low 42.0-54.0 [facility] Comment on above: Performed By: #### P T, PTT #### [facility] [address] [place] [address] Dr. Mirza Sadler Hemoglobin (Bld) [Mass/Vol] 12.2 g/dL Critically low 14.0-18.0 [facility] Comment on above: Performed By: #### P T, PTT #### [facility] [address] [place] [address] Dr. Mirza Sadler IG # 0.03 10e3/ul Normal 0.00-0.[address] [facility] Comment on above: Performed By: #### P T, PTT #### [facility] [address] [place] [address] Dr. Mirza Sadler IG % 0.3 % Normal 0.0-0.[address] [facility] Comment on above: Performed By: #### P T, PTT #### [facility] [address] [place] [address] Dr. Mirza Sadler LYMPH # 1.2 103/ul Normal 1.2-3.[address] [facility] Comment on above: Performed By: #### P T, PTT #### [facility] [address] [place] [address] Dr. Mirza Sadler Lymphocytes/100 WBC (Bld) 11.5 % Critically low 20.5-60.[address] [facility] Comment on above: Performed By: #### P T, PTT #### [facility] [address] [place] [address] Dr. Mirza Sadler MANUAL DIFF REQ NO Normal [facility] Comment on above: Performed By: #### P T, PTT #### [facility] [address] [place] [address] Dr. Mirza Sadler MCH (RBC) [Entitic mass] 29.0 pg Normal 25.9-34.[address] [facility] Comment on above: Performed By: #### P T, PTT #### [facility] [address] [place] [address] Dr. Mirza Sadler MCHC (RBC) [Mass/Vol] 32.3 g/dL Normal 29.9-35.[address] [facility] Comment on above: Performed By: #### P T, PTT #### [facility] [address] [place] [address] Dr. Mirza Sadelr MCV (RBC) [Entitic vol] 89.8 fL Normal 80.0-94.[address] [facility] Comment on above: Performed By: #### P T, PTT #### [facility] [address] [address] [address] Mirza Sadler MONO # 0.7 103/ul Normal 0.3-0.[address] [facility] Comment on above: Performed By: #### P T, PTT #### [facility] [address] [place] [address] Dr. Mirza Sadler Monocytes/100 WBC (Bld) 6.8 % Normal 1.7-12.[address] [facility] Comment on above: Performed By: #### P T, PTT #### [facility] [address] [place] [address] Dr. Mirza Sadler NEUT # 8.5 103/ul Critically high 1.4-6.5 [facility] Comment on above: Performed By: #### P T, PTT #### [facility] [address] [place] [address] Dr. Mirza Sadler Neutrophils/100 WBC (Bld) 80.8 % Critically high 43.0-75.[address] [facility] Comment on above: Performed By: #### P T, PTT #### [facility] [address] [place] [address] Dr. Mirza Sadler Platelet mean volume (Bld) [Entitic vol] 9.8 fL Normal 9.5-13.[address] [facility] Comment on above: Performed By: #### P T, PTT #### [facility] [address] [place] [address] Dr. Mirza Sadler PLT 165 103/ul Normal 150-450 [facility] Comment on above: Performed By: #### P T, PTT #### [facility] [address] [place] [address] Dr. Mirza Sadler RBC 4.21 106/ul Critically low 4.70-6.10 [facility] Comment on above: Performed By: #### P T, PTT #### [facility] [address] [place] [address] Dr. Mirza Sadler WBC 10.5 103/ul Normal 4.0-11.0 [facility] Comment on above: Performed By: #### P T, PTT #### [facility] [address] [address] [address] Mirza Sadler ECHOCARDIO M/2D COMPLETEon 1 05-13-2021 ECHOCARDIO M/2D COMPLETE Patient: LANI LIZAMA Exam Date: 03/12/2022 : 1950 Gender:M Ordering : DR OBDULIO ALVA . Admission #: [id number] Family : DR HARLEY CRESPO DTaina Order #: [id number] CLICK HERE TO VIEW EXAM ECHOCARDIOGRAM REPORT PROCEDURE: CARDIO PULMONARY ECHOCARDIO M/2D COMP INDICATIONS: Elevated TROP and BNPChest pain, recent NM, CHF, CBAG x 5, PTCA x 7 [...] Foreman M.D. on 03/13/2022 at 17:[address] [facility] PROF CHEM 8 (BAS METB)on Anion gap [Moles/Vol] 17.8 mmol/L Normal [facility] Comment on above: Performed By: #### C TEGAN MARIN #### [facility] [address] [address] [address] Mirza Sadler Calcium [Mass/Vol] 8.6 mg/dL Normal 8.5-10.1 [facility] Comment on above: Performed By: #### C TEGAN MARIN #### [facility] [address] [address] [address] Mirza Sadler Chloride [Moles/Vol] 103 mmol/L Normal 98-[address] [facility] Comment on above: Performed By: #### C TEGAN MARIN #### [facility] [address] [address] [address] Mirza Sadler CO2 [Moles/Vol] 22.3 mmol/L Normal 21.0-32.0 [facility] Comment on above: Performed By: #### C MP, CMADM #### [facility] [address] [address] [address] Mirza Sadler Creatinine [Mass/Vol] 1.81 mg/dL Critically high 0.70-1.[address] [facility] Comment on above: Performed By: #### C MP, CMADM #### [facility] [address] [address] [address] Mirza Sadler EGFR-AF FIJIAN 45 mL/min/1.73m2 Critically low >=[address] [facility] Comment on above: Performed By: #### C MP, CMADM #### [facility] [address] [place] [address] Dr. Mirza Sadler EGFR-NON AF FIJIAN 37 mL/min/1.73m2 Critically low >=[address] [facility] Comment on above: Performed By: #### C MP, CMADM #### [facility] [address] [place] [address] Dr. Mirza Sadler Glucose [Mass/Vol] 161 mg/dL Critically high 74-[address] [facility] Comment on above: Performed By: #### C MP, CMADM #### [facility] [address] [place] [address] Dr. Mirza Sadler Potassium [Moles/Vol] 4.1 mmol/L Normal 3.5-5.[address] [facility] Comment on above: Performed By: #### C MP, CMADM #### [facility] [address] [place] [address] Dr. Mirza Sadler Sodium [Moles/Vol] 139 mmol/L Normal 136-145 [facility] Comment on above: Performed By: #### C MP, CMADM #### [facility] [address] [place] [address] Dr. Mirza Sadler Urea nitrogen [Mass/Vol] 28.0 mg/dL Critically high 7.0-18.[address] [facility] Comment on above: Performed By: #### C MP, CMADM #### [facility] [address] [place] [address] Dr. Mirza Sadler Urea nitrogen/Creatinine [Mass ratio] 15.5 mg/mg Normal [facility] Comment on above: Performed By: #### C TANIA, CMADM #### [facility] [address] [place] [address] Dr. Mirza Sadler TROPONIN, HIGH SENSITIVITYon 03-12-2022 HSTROP 15276.5 pg/mL Critically high 4.0-76.1 [facility] Comment on above: Result Comment: CUT- OFF POINTS HAVE BEEN ESTABLISHED BASED ON THE FOURTH UNIVERSAL DEFINITIONS OF MYOCARDIAL INFARCTION. THE UPPER REFERENCE LIMIT (URL) OF TROPONIN, DEFINED THE 99TH PERCENTILE OF cTnI DISTRIBUTION IN A REFERENCE POPULATION, HAS BEEN CONFIRMED THE DECISION THRESHOLD FOR NM DIAGNOSIS. Performed By: #### C TANIA, CMADM #### [facility] [address] [place] [address] Dr. Mirza Sadler BNPon 03-11-2022 Natriuretic peptide B (Bld) [Mass/Vol] 1378.0 pg/mL Critically high <=900.[address] [facility] Comment on above: Performed By: #### P T, PTT #### [facility] [address] [place] [address] Dr. Mirza Sadler CARDIAC PARUL 3-6on 2 CK [Catalytic activity/Vol] 139 U/L Normal 39-[address] [facility] Comment on above: Performed By: #### E RUR #### [facility] [address] [place] [address] Dr. Mirza Sadler CK.MB [Mass/Vol] 7.50 ng/mL Critically high <=3.[address] [facility] Comment on above: Performed By: #### E RUR #### [facility] [address] [place] [address] Dr. Mirza Sadler HSTROP 1419.3 pg/mL Critically high 4.0-76.1 [facility] Comment on above: Result Comment: CUT- OFF POINTS HAVE BEEN ESTABLISHED BASED ON THE FOURTH UNIVERSAL DEFINITIONS OF MYOCARDIAL INFARCTION. THE UPPER REFERENCE LIMIT (URL) OF TROPONIN, DEFINED THE 99TH PERCENTILE OF cTnI DISTRIBUTION IN A REFERENCE POPULATION, HAS BEEN CONFIRMED THE DECISION THRESHOLD FOR NM DIAGNOSIS. Performed By: #### E RUR #### [facility] [address] [address] [address] Mirza Sadler CBC AUTO DIFFon 03-11-2022 BASO # 0.1 103/ul Normal 0.0-0.[address] [facility] Comment on above: Performed By: #### E RUR #### [facility] [address] [address] [address] Mirza Sadler Basophils/100 WBC (Bld) 0.5 % Normal 0.2-2.[address] [facility] Comment on above: Performed By: #### E RUR #### [facility] [address] [place] [address] Dr. Mirza Sadler EO # 0.2 103/ul Normal 0.0-0.[address] [facility] Comment on above: Performed By: #### E RUR #### [facility] [address] [place] [address] Dr. Mirza Sadler Eosinophils/100 WBC (Bld) 1.3 % Normal 0.9-7.[address] [facility] Comment on above: Performed By: #### E RUR #### [facility] [address] [place] [address] Dr. Mirza Sadler Erythrocyte distribution width (RBC) [Ratio] 14.6 % Normal 11.0-15.[address] [facility] Comment on above: Performed By: #### E RUR #### [facility] [address] [place] [address] Dr. Mirza Sadler Hematocrit (Bld) [Volume fraction] 43.1 % Normal 42.0-54.[address] [facility] Comment on above: Performed By: #### E RUR #### [facility] [address] [place] [address] Dr. Mirza Sadler Hemoglobin (Bld) [Mass/Vol] 14.2 g/dL Normal 14.0-18.[address] [facility] Comment on above: Performed By: #### E RUR #### [facility] [address] [place] [address] Dr. Mirza Sadler IG # 0.07 10e3/ul Critically high 0.00-0.03 [facility] Comment on above: Performed By: #### E RUR #### [facility] [address] [address] [address] Mirza Sadler IG % 0.5 % Normal 0.0-0.[address] [facility] Comment on above: Performed By: #### E RUR #### [facility] [address] [address] [address] Mirza Sadler LYMPH # 1.3 103/ul Normal 1.2-3.[address] [facility] Comment on above: Performed By: #### E RUR #### [facility] [address] [place] [address] Dr. Mirza Sadler Lymphocytes/100 WBC (Bld) 8.6 % Critically low 20.5-60.[address] [facility] Comment on above: Performed By: #### E RUR #### [facility] [address] [place] [address] Dr. Mirza Sadler MANUAL DIFF REQ NO Normal [facility] Comment on above: Performed By: #### E RUR #### [facility] [address] [place] [address] Dr. Mirza Sadler MCH (RBC) [Entitic mass] 29.3 pg Normal 25.9-34.[address] [facility] Comment on above: Performed By: #### E RUR #### [facility] [address] [place] [address] Dr. Mirza Sadler MCHC (RBC) [Mass/Vol] 32.9 g/dL Normal 29.9-35.[address] [facility] Comment on above: Performed By: #### E RUR #### [facility] [address] [place] [address] Dr. Mirza Sadler MCV (RBC) [Entitic vol] 88.9 fL Normal 80.0-94.[address] [facility] Comment on above: Performed By: #### E RUR #### [facility] [address] [place] [address] Dr. Mirza Sadler MONO # 0.7 103/ul Normal 0.3-0.[address] [facility] Comment on above: Performed By: #### E RUR #### [facility] [address] [address] [address] Mirza Sadler Monocytes/100 WBC (Bld) 4.3 % Normal 1.7-12.0 [facility] Comment on above: Performed By: #### E RUR #### [facility] [address] [place] [address] Dr. Mirza Sadler NEUT # 12.8 103/ul Critically high 1.4-6.5 [facility] Comment on above: Performed By: #### E RUR #### [facility] [address] [place] [address] Dr. Mirza Sadler Neutrophils/100 WBC (Bld) 84.8 % Critically high 43.0-75.[address] [facility] Comment on above: Performed By: #### E RUR #### [facility] [address] [place] [address] Dr. Mirza Sadler Platelet mean volume (Bld) [Entitic vol] 9.9 fL Normal 9.5-13.[address] [facility] Comment on above: Performed By: #### E RUR #### [facility] [address] [place] [address] Dr. Mirza Sadler PLT 201 103/ul Normal 150-450 [facility] Comment on above: Performed By: #### E RUR #### [facility] [address] [place] [address] Dr. Mirza Sadler RBC 4.85 106/ul Normal 4.70-6.10 [facility] Comment on above: Performed By: #### E RUR #### [facility] [address] [place], [place] [id number] Dr. Mirza Sadler WBC 15.0 103/ul Critically high 4.0-11.0 [facility] Comment on above: Performed By: #### E RUR #### [facility] [address] [place] [address] Dr. Mirza Sadler CULTURE BLOODon 03-11-2022 Microscopic examination of blood, culture Culture Observations: NO GROWTH AT 5 DAYS. Normal [facility] Comment on above: Performed By: #### H STROPN #### [facility] [address] [place] [address] Dr. Mirza Sadler Microscopic examination of blood, culture Culture Observations: NO GROWTH AT 5 DAYS. Normal [facility] Comment on above: Performed By: #### H STROPN #### [facility] [address] [place] [address] Dr. Mirza Sadler Covid-19 PCR ([facility])on 03-01 SARS-CoV-2 (COVID-19) RNA RAMO+probe Ql (Unsp spec) Not detected Normal NOT DETECTED [facility] Comment on above: Result Comment: When [...] for this test is supported by the [place] of Health and Human Service's declaration that [...] used). Performed By: #### H STROPN #### [facility] [address] [place] [address] Dr. Mirza Sadler ER URINE PROFILEon 2 Bilirubin Ql (U) Negative Normal NEGATIVE [facility] Comment on above: Performed By: #### E RUR #### [facility] [address] [place] [address] Dr. Mirza Sadler Clarity (U) CLEAR Normal CLEAR [facility] Comment on above: Performed By: #### E RUR #### [facility] [address] [place] [address] Dr. Mirza Sadler Color (U) LT. YELLOW Normal YELLOW [facility] Comment on above: Performed By: #### E RUR #### [facility] [address] [address] [address] Mirza BUSTILLO A micrscopic examina tion will be performed if indicated. Normal [facility] Comment on above: Performed By: #### E RUR #### [facility] [address] [place] [address] Dr. Mirza Sadler Glucose Ql (U) >1000 Abnormal NEGATIVE [facility] Comment on above: Performed By: #### E RUR #### [facility] [address] [place] [address] Dr. Mirza Sadler Hemoglobin Ql (U) Negative Normal NEGATIVE [facility] Comment on above: Performed By: #### E RUR #### [facility] [address] [place] [address] Dr. Mirza Sadler Ketones Ql (U) 15 mg/dl Abnormal NEGATIVE [facility] Comment on above: Performed By: #### E RUR #### [facility] [address] [place] [address] Dr. Mirza Sadler LEUKOCYTES Negative Normal NEGATIVE [facility] Comment on above: Performed By: #### E RUR #### [facility] [address] [place] [address] Dr. Mirza Sadler Nitrite Ql (U) Negative Normal NEGATIVE [facility] Comment on above: Performed By: #### E RUR #### [facility] [address] [place] [address] Dr. Mirza Sadler pH (U) 5.0 [pH] Normal 5-[address] [facility] Comment on above: Performed By: #### E RUR #### [facility] [address] [place] [address] Dr. Mirza Sadler SPEC GRAVITY 1.020 Normal 1.005-<=1. [address] [facility] Comment on above: Performed By: #### E RUR #### [facility] [address] [place] [address] Dr. Mirza Sadler UA PROTEIN TRACE Normal NEGATIVE/ TRACE [facility] Comment on above: Performed By: #### E RUR #### [facility] [address] [address] [address] Mirza Sadler UR MICRO IND NOT INDICATED Normal [facility] Comment on above: Performed By: #### E RUR #### [facility] [address] [place] [address] Dr. Mirza Sadler Urobilinogen Qn (U) 0.2 {Luisito'U}/dL Normal 0.2 - 1. [address] [facility] Comment on above: Performed By: #### E RUR #### [facility] [address] [place] [address] Dr. Mirza Sadler POINT OF CARE GLUCOSEon 03-01 Glucose [Mass/Vol] 161 mg/dL Critically high 74-106 [facility] Comment on above: Performed By: #### P T, PTT #### [facility] [address] [place] [address] Dr. Mirza Sadler PROF 14(COMP METB)on 022 Albumin [Mass/Vol] 4.3 g/dL Normal 3.4-5.0 [facility] Comment on above: Performed By: #### P T, PTT #### [facility] [address] [place] [address] Dr. Mirza Sadler Albumin/Globulin [Mass ratio] 1.1 {ratio} Normal [facility] Comment on above: Performed By: #### P T, PTT #### [facility] [address] [place] [address] Dr. Mirza Sadler ALP [Catalytic activity/Vol] 156 U/L Critically high 46-[address] [facility] Comment on above: Performed By: #### P T, PTT #### [facility] [address] [place] [address] Dr. Mirza Sadler ALT [Catalytic activity/Vol] 24 U/L Normal 16-[address] [facility] Comment on above: Performed By: #### P T, PTT #### [facility] [address] [place] [address] Dr. Mirza Sadler Anion gap [Moles/Vol] 16.7 mmol/L Normal Th e [facility] Comment on above: Performed By: #### P T, PTT #### [facility] [address] [place] [address] Dr. Mirza Sadler AST [Catalytic activity/Vol] 21 U/L Normal 15-[address] [facility] Comment on above: Performed By: #### P T, PTT #### [facility] [address] [place] [address] Dr. Mirza Sadler Bilirubin [Mass/Vol] 1.1 mg/dL Critically high 0.2-1.[address] [facility] Comment on above: Performed By: #### P T, PTT #### [facility] [address] [place] [address] Dr. Mirza Sadler Calcium [Mass/Vol] 8.8 mg/dL Normal 8.5-10.1 [facility] Comment on above: Performed By: #### P T, PTT #### [facility] [address] [place] [address] Dr. Mirza Sadler Chloride [Moles/Vol] 105 mmol/L Normal 98-[address] [facility] Comment on above: Performed By: #### P T, PTT #### [facility] [address] [place] [address] Dr. Mirza Sadler CO2 [Moles/Vol] 25.0 mmol/L Normal 21.0-32.0 [facility] Comment on above: Performed By: #### P T, PTT #### [facility] [address] [place] [address] Dr. Mirza Sadler Creatinine [Mass/Vol] 1.57 mg/dL Critically high 0.70-1.[address] [facility] Comment on above: Performed By: #### P T, PTT #### [facility] [address] [place] [address] Dr. Mirza Sadler EGFR-AF FIJIAN 53 mL/min/1.73m2 Critically low >=60 [facility] Comment on above: Performed By: #### P T, PTT #### [facility] [address] [place] [address] Dr. Mirza Sadler EGFR-NON AF FIJIAN 44 mL/min/1.73m2 Critically low >=[address] [facility] Comment on above: Performed By: #### P T, PTT #### [facility] [address] [address] [address] Mirza Sadler Globulin (S) [Mass/Vol] 3.9 g/dL Normal [facility] Comment on above: Performed By: #### P T, PTT #### [facility] [address] [address] [address] Mirza Sadler Glucose [Mass/Vol] 188 mg/dL Critically high 74-106 [facility] Comment on above: Performed By: #### P T, PTT #### [facility] [address] [place] [address] Dr. Mirza Sadler Potassium [Moles/Vol] 3.7 mmol/L Normal 3.5-5.[address] [facility] Comment on above: Performed By: #### P T, PTT #### [facility] [address] [address] [address] Mirza Sadler Protein [Mass/Vol] 8.2 g/dL Normal 6.4-8.2 [facility] Comment on above: Performed By: #### P T, PTT #### [facility] [address] [place] [address] Dr. Mirza Sadler Sodium [Moles/Vol] 143 mmol/L Normal 136-145 [facility] Comment on above: Performed By: #### P T, PTT #### [facility] [address] [place] [address] Dr. Mirza Sadler Urea nitrogen [Mass/Vol] 20.0 mg/dL Critically high 7.0-18.[address] [facility] Comment on above: Performed By: #### P T, PTT #### [facility] [address] [place] [address] Dr. Mirza Sadler Urea nitrogen/Creatinine [Mass ratio] 12.7 mg/mg Normal [facility] Comment on above: Performed By: #### P T, PTT #### [facility] [address] [place] [address] Dr. Mirza Sadler RESPIRATORY PANEL PLUSon Adenovirus Not detected Normal NOT DETECTED [facility] Comment on above: Performed By: #### P T, PTT #### [facility] [address] [place] [address] Dr. Mirza Ball Parapertusis Not detected Normal NOT DETECTED [facility] Comment on above: Performed By: #### P T, PTT #### [facility] [address] [place] [address] Dr. Mirza Ball Pertussis Not detected Normal NOT DETECTED [facility] Comment on above: Performed By: #### P T, PTT #### [facility] [address] [place] [address] Dr. Mirza Sadler Chlamydia Pneumoniae Not detected Normal NOT DETECTED [facility] Comment on above: Performed By: #### P T, PTT #### [facility] [address] [place] [address] Dr. Mirza Sadler Coronavirus 229E Not detected Normal NOT DETECTED [facility] Comment on above: Performed By: #### P T, PTT #### [facility] [address] [place] [address] Dr. Mirza Sadler Coronavirus HKU1 Not detected Normal NOT DETECTED [facility] Comment on above: Performed By: #### P T, PTT #### [facility] [address] [place] [address] Dr. Mirza Sadler Coronavirus NL63 Not detected Normal NOT DETECTED [facility] Comment on above: Performed By: #### P T, PTT #### [facility] [address] [place] [address] Dr. Mirza Sadler Coronavirus OC43 Not detected Normal NOT DETECTED [facility] Comment on above: Performed By: #### P T, PTT #### [facility] [address] [place] [address] Dr. Mirza Sadler Influenza A H1 2009 Not detected Normal NOT DETECTED [facility] Comment on above: Performed By: #### P T, PTT #### [facility] [address] [place] [address] Dr. Mirza Sadler Influenza A H3 Not detected Normal NOT DETECTED [facility] Comment on above: Performed By: #### P T, PTT #### [facility] [address] [place] [address] Dr. Mirza Sadler Influenza B Not detected Normal NOT DETECTED [facility] Comment on above: Performed By: #### P T, PTT #### [facility] [address] [place] [address] Dr. Mirza Sadler Metapneumovirus Not detected Normal NOT DETECTED [facility] Comment on above: Performed By: #### P T, PTT #### [facility] [address] [place] [address] Dr. Mirza Sadler Mycoplas. Pneumoniae Not detected Normal NOT DETECTED [facility] Comment on above: Performed By: #### P T, PTT #### [facility] [address] [place] [address] Dr. Mirza Sadler Parainfluenza 1 Not detected Normal NOT DETECTED [facility] Comment on above: Performed By: #### P T, PTT #### [facility] [address] [place] [address] Dr. Mirza Sadler Parainfluenza 2 Not detected Normal NOT DETECTED [facility] Comment on above: Performed By: #### P T, PTT #### [facility] [address] [place] [address] Dr. Mirza Sadler Parainfluenza 3 Not detected Normal NOT DETECTED [facility] Comment on above: Performed By: #### P T, PTT #### [facility] [address] [place] [address] Dr. Mirza Sadler Parainfluenza 4 Not detected Normal NOT DETECTED [facility] Comment on above: Performed By: #### P T, PTT #### [facility] [address] [place] [address] Dr. Mirza Sadler Rhino/Enterovirus Not detected Normal NOT DETECTED [facility] Comment on above: Performed By: #### P T, PTT #### [facility] [address] [place] [address] Dr. Mirza Sadler RP2 Header 1 RESPIRATORY PANEL: VIRUSES Normal [facility] Comment on above: Performed By: #### P T, PTT #### [facility] [address] [place] [address] Dr. Mirza Sadler RP2 Header 2 RESPIRATORY PANEL: BACTERIA Normal [facility] Comment on above: Performed By: #### P T, PTT #### [facility] [address] [place] [address] Dr. Mirza Sadler RSV Not detected Normal NOT DETECTED [facility] Comment on above: Performed By: #### P T, PTT #### [facility] [address] [place] [address] Dr. Mirza Sadler SARS-CoV-2 (COVID-19) RNA RAMO+probe Ql (Unsp spec) Not detected Normal NOT DETECTED [facility] Comment on above: Performed By: #### P T, PTT #### [facility] [address] [place] [address] Dr. Mirza Sadler TROPONIN, HIGH SENSITIVITYon 03-11-2022 HSTROP 62676.8 pg/mL Critically high 4.0-76.1 [facility] Comment on above: Result Comment: CUT- OFF POINTS HAVE BEEN ESTABLISHED BASED ON THE FOURTH UNIVERSAL DEFINITIONS OF MYOCARDIAL INFARCTION. THE UPPER REFERENCE LIMIT (URL) OF TROPONIN, DEFINED THE 99TH PERCENTILE OF cTnI DISTRIBUTION IN A REFERENCE POPULATION, HAS BEEN CONFIRMED THE DECISION THRESHOLD FOR NM DIAGNOSIS. Performed By: #### C MP, CMADM #### [facility] [address] [place] [address] Dr. Mirza Sadler HSTROP 41.0 pg/mL Normal 4.0-76.[address] [facility] Comment on above: Result Comment: CUT- OFF POINTS HAVE BEEN ESTABLISHED BASED ON THE FOURTH UNIVERSAL DEFINITIONS OF MYOCARDIAL INFARCTION. THE UPPER REFERENCE LIMIT (URL) OF TROPONIN, DEFINED THE 99TH PERCENTILE OF cTnI DISTRIBUTION IN A REFERENCE POPULATION, HAS BEEN CONFIRMED THE DECISION THRESHOLD FOR NM DIAGNOSIS. Performed By: #### P T, PTT #### [facility] [address] [place] [address] Dr. Mirza Sadler XR CHEST 1 Von [...] by: Kayden ACEVES Date: 2022-03-11 05:42 Normal [facility] NM MUGAon 03-09-2022 NM MUGA EXAMINATION: NM [...] SHANNON LANDIS Date: 2022-03-09 12:26 Normal [facility] CT CHEST WO CONon 03-02-2022 CT [...] HIGINIO FLANAGAN Date: 2022-03-02 08:52 Normal [facility] Creatinine and Glomerular fi ltration rate.predicted panel (S/P/Bld)Ordered By: Gagan Shahid on 01-17-2022 Creatinine [Mass/Vol] 1.53 mg/dL 0.64-1.27 [facility] Estimated glomerular filtrat ion rate (GFR) non- AmericanOrdered By: Gagan Shahid on 01-17-2022 GFR/1.73 sq M.predicted among non-blacks MDRD (S/P/Bld) [Vol rate/Area] 45 mL/Min [facility] Glucose Glucometer (BldC) [M ass/Vol]Ordered By: Gagan Shahid on 01-17-2022 Glucose [Mass/Vol] 178 mg/dL [facility] Comment on above: Random Glucose Refer ence Range is dependent on time and content of last meal. Glucose of more than 200 mg/dL in a nonstressed, ambulatory subject supports the diagnosis of Diabetes Mellitus. No Panel InformationOrdered By: Gagan Shahid on 01-17-2022 Estimated GFR () 55 mL/Min [facility] Comment on above: GFR estimated refere nce range: According to KDOQI guidelines, <60 ml/min/1.73m2 is sufficient to diagnose a patient with chronic kidney disease. Pharmacy Creatinine Clearance (Chem 42.00 [facility] Serum or plasma anion gap de terminationOrdered By: Gagan Shahid on 01-17-2022 Anion gap [Moles/Vol] 12.0 mmol/L 6.0-15.0 [facility] Serum or plasma calcium radha urement (mass/volume)Ordered By: Gagan Shahid on 01-17-2022 Calcium [Mass/Vol] 9.0 mg/dL 8.2-10.2 [facility] Serum or plasma chloride shanae surement (moles/volume)Ordered By: Gagan Shahid on 01-17-2022 Chloride [Moles/Vol] 107 mmol/L 95-114 [facility] Serum or plasma glucose radha urement (mass/volume)Ordered By: Gagan Shahid on 01-17-2022 Glucose [Mass/Vol] 142 mg/dL 70-100 [facility] Comment on above: ADA recommended refe rence rangeRandom Glucose Reference Range is dependent on time and content of last meal. Glucose of more than 200 mg/dL in a nonstressed, ambulatory subject supports the diagnosis of Diabetes Mellitus. Serum or plasma potassium me asurement (moles/volume)Ordered By: Gagan Shahid on 01-17-2022 Potassium [Moles/Vol] 3.5 mmol/L 3.5-5.1 [facility] Serum or plasma sodium measu rement (moles/volume)Ordered By: Gagan Shahid on 01-17-2022 Sodium [Moles/Vol] 137 mmol/L 136-146 [facility] Serum or plasma total carbon dioxide measurement (moles/volume)Ordered By: Gagan Shahid on 01-17-2022 CO2 [Moles/Vol] 21.5 mmol/L 22.0-30.0 [facility] Serum or plasma urea nitroge n measurement (mass/volume)Ordered By: Gagan Shahid on 01-17-2022 Urea nitrogen [Mass/Vol] 24 mg/dL 9-23 [facility] Activated partial thrombopla stin time (aPTT) in platelet poor plasma by coagulation aOrdered By: Gagan Shahid on 01-16-2022 aPTT Coag (PPP) [Time] 42.1 s 25.1-36.5 [facility] Basophils Auto (Bld) [#/Vol] Ordered By: Gagan Shahid on 01-16-2022 Basophils (Bld) [#/Vol] 0.0 10*3/uL 0.0-0.2 [facility] Basophils/100 WBC Auto (Bld) Ordered By: Gagan Shahid on 01-16-2022 Basophils/100 WBC (Bld) 0.5 % . [facility] Creatine kinase [Enzymatic a ctivity/volume] in Serum or PlasmaOrdered By: Gagan Shahid on 01-16-2022 CK [Catalytic activity/Vol] 92 U/L 22-269 [facility] Eosinophils Auto (Bld) [#/Vo l]Ordered By: Gagan Shahid on 01-16-2022 Eosinophils (Bld) [#/Vol] 0.2 10*3/uL 0.0-0.45 [facility] Eosinophils/100 WBC Auto (Bl d)Ordered By: Gagan Shahid on 01-16-2022 Eosinophils/100 WBC (Bld) 2.4 % . [facility] Erythrocyte distribution wid th Auto (RBC) [Ratio]Ordered By: Gagan Shahid on 01-16-2022 Erythrocyte distribution width (RBC) [Ratio] 14.6 % 12.0-14.8 [facility] Hematocrit Auto (Bld) [Volum e fraction]Ordered By: Gagan Shahid on 01-16-2022 Hematocrit (Bld) [Volume fraction] 43.4 % 38.8-50.0 [facility] Hemoglobin [Mass/volume] in BloodOrdered By: Gagan Shahid on 01-16-2022 Hemoglobin (Bld) [Mass/Vol] 14.4 g/dL 13.0-17.0 [facility] - Chemistry and C hemistry - challengeOrdered By: Gagan Shahid on 01-16-2022 Magnesium [Mass/Vol] 1.9 mg/dL 1.6-2.6 [facility] Laboratory - CoagulationOrde red By: Gagan Shahid on 01-16-2022 PT Coag (PPP) [Time] 15.7 s 9.0-12.9 [facility] [facility] and Cell countsOrdered By: Gagan Shahid on 01-16-2022 Nucleated RBC/100 WBC (Bld) [Ratio] 0.1 % 0-0.5 [facility] Leukocytes [#/volume] in Blo od by Automated countOrdered By: Gagan Shahid on 01-16-2022 WBC (Bld) [#/Vol] 8.2 10*3/uL 4.5-11.0 [facility] Lymphocytes Auto (Bld) [#/Vo l]Ordered By: Gagan Shahid on 01-16-2022 Lymphocytes (Bld) [#/Vol] 1.6 10*3/uL 1.00-4.8 [facility] Lymphocytes/100 WBC Auto (Bl d)Ordered By: Gagan Shahid on 01-16-2022 Lymphocytes/100 WBC (Bld) 19.5 % . [facility] MCH Auto (RBC) [Entitic mass ]Ordered By: Gagan Shahid on 01-16-2022 MCH (RBC) [Entitic mass] 29.4 pg 27.5-35.2 [facility] MCHC Auto (RBC) [Mass/Vol]Or dered By: Gagan Shahid on 01-16-2022 MCHC (RBC) [Mass/Vol] 33.2 g/dL 32.5-35.6 [facility] MCV Auto (RBC) [Entitic vol] Ordered By: Gagan Shahid on 01-16-2022 MCV (RBC) [Entitic vol] 88.5 fL 83.5-101 [facility] Monocytes Auto (Bld) [#/Vol] Ordered By: Gagan Shahid on 01-16-2022 Monocytes (Bld) [#/Vol] 0.8 10*3/uL 0.0-0.8 [facility] Monocytes/100 WBC Auto (Bld) Ordered By: Gagan Shahid on 01-16-2022 Monocytes/100 WBC (Bld) 9.1 % . [facility] Neutrophils Auto (Bld) [#/Vo l]Ordered By: Gagan Shahid on 01-16-2022 Neutrophils (Bld) [#/Vol] 5.6 10*3/uL 1.8-7.7 [facility] Neutrophils/100 WBC Auto (Bl d)Ordered By: Gagan Shahid on 01-16-2022 Neutrophils/100 WBC (Bld) 68.5 % . [facility] No Panel InformationOrdered By: Gagan Shahid on 01-16-2022 Bedside Glucose Comment Glu2: cleaned meter [facility] Platelet mean volume Auto (B ld) [Entitic vol]Ordered By: Gagan Shahid on 01-16-2022 Platelet mean volume (Bld) [Entitic vol] 8.4 fL 6.6-10.1 [facility] Platelet poor plasma interna tional normalized ratio (INR) by coagulation assay (relatOrdered By: Gagan Shahid on 01-16-2022 INR Coag (PPP) [Relative time] 1.4 {INR} [facility] Comment on above: INR Therapeutic Rang e [...] 01-16-2022 Platelets (Bld) [#/Vol] 178 10*3/uL 150-450 [facility] RBC Auto (Bld) [#/Vol]Ordere d By: Gagan Shahid on 01-16-2022 RBC (Bld) [#/Vol] 4.90 10*6/uL 3.90-5.60 [facility] Serum or plasma creatine kin ase MB (CKMB)/total creatine kinase (CK) ratio by calculaOrdered By: Gagan Shahid on 01-16-2022 CK.MB Calc [Catalytic fraction] 3.2 % 0.00-2.50 [facility] Serum or plasma creatine kin ase MB measurement (mass/volume)Ordered By: Gagan Shahid on 01-16-2022 CK.MB [Mass/Vol] 3.0 ng/mL 0.6-6.3 [facility] Troponin I.cardiac [Mass/vol ume] in Serum or Plasma by High sensitivity methodOrdered By: Gagan Shahid on 01-16-2022 Troponin I.cardiac High sensitivity method [Mass/Vol] 525 pg/mL 0-20 [facility] Comment on above: Critical valueresult calledat 1844 on 01/16/22 BNPon 01-15-2022 Natriuretic peptide B (Bld) [Mass/Vol] 1012.0 pg/mL Critically high <=900.[address] [facility] Comment on above: Performed By: #### B EMPLOYMENT LEGAL ASSISTANT #### [facility] [address] [place] [address] Dr. Mirza Sadler CARDIAC PARUL ADMITon 022 CK [Catalytic activity/Vol] 93 U/L Normal 39-[address] [facility] Comment on above: Performed By: #### C TEGAN MARIN #### [facility] [address] [place] [address] Dr. Mirza Sadler CK.MB [Mass/Vol] 1.67 ng/mL Normal <=3.60 [facility] Comment on above: Performed By: #### C TEGAN MARIN #### [facility] [address] [place] [address] Dr. Mirza Sadler HSTROP 17.1 pg/mL Normal 4.0-76.1 [facility] Comment on above: Result Comment: CUT- OFF POINTS HAVE BEEN ESTABLISHED BASED ON THE FOURTH UNIVERSAL DEFINITIONS OF MYOCARDIAL INFARCTION. THE UPPER REFERENCE LIMIT (URL) OF TROPONIN, DEFINED THE 99TH PERCENTILE OF cTnI DISTRIBUTION IN A REFERENCE POPULATION, HAS BEEN CONFIRMED THE DECISION THRESHOLD FOR NM DIAGNOSIS. Performed By: #### C TEGAN MARIN #### [facility] [address] [place] [address] Dr. Mirza Sadler RACHEL 63 ng/mL Normal 16-96 [facility] Comment on above: Performed By: #### C DOM MARINDM #### [facility] [address] [place] [address] Dr. Mirza Sadler CBC AUTO DIFFon 01-15-2022 BASO # 0.1 103/ul Normal 0.0-0.[address] [facility] Comment on above: Performed By: #### E RUR #### [facility] [address] [place] [address] Dr. Mirza Sadler Basophils/100 WBC (Bld) 0.9 % Normal 0.2-2.[address] [facility] Comment on above: Performed By: #### E RUR #### [facility] [address] [place] [address] Dr. Mirza Sadler EO # 0.3 103/ul Normal 0.0-0.[address] [facility] Comment on above: Performed By: #### E RUR #### [facility] [address] [place] [address] Dr. Mirza Sadler Eosinophils/100 WBC (Bld) 3.1 % Normal 0.9-7.[address] [facility] Comment on above: Performed By: #### E RUR #### [facility] [address] [place] [address] Dr. Mirza Sadler Erythrocyte distribution width (RBC) [Ratio] 14.2 % Normal 11.0-15.[address] [facility] Comment on above: Performed By: #### E RUR #### [facility] [address] [place] [address] Dr. Mirza Sadler Hematocrit (Bld) [Volume fraction] 44.4 % Normal 42.0-54.[address] [facility] Comment on above: Performed By: #### E RUR #### [facility] [address] [place] [address] Dr. Mirza Sadler Hemoglobin (Bld) [Mass/Vol] 14.4 g/dL Normal 14.0-18.[address] [facility] Comment on above: Performed By: #### E RUR #### [facility] [address] [place] [address] Dr. Mirza Sadler IG # 0.03 10e3/ul Normal 0.00-0.[address] [facility] Comment on above: Performed By: #### E RUR #### [facility] [address] [place] [address] Dr. Mirza Sadler IG % 0.3 % Normal 0.0-0.[address] [facility] Comment on above: Performed By: #### E RUR #### [facility] [address] [place] [address] Dr. Mirza Sadler LYMPH # 1.6 103/ul Normal 1.2-3.[address] [facility] Comment on above: Performed By: #### E RUR #### [facility] [address] [place] [address] Dr. Mirza Sadler Lymphocytes/100 WBC (Bld) 16.8 % Critically low 20.5-60.[address] [facility] Comment on above: Performed By: #### E RUR #### [facility] [address] [place] [address] Dr. Mirza Sadler MANUAL DIFF REQ NO Normal [facility] Comment on above: Performed By: #### E RUR #### [facility] [address] [place] [address] Dr. Mirza Sadler MCH (RBC) [Entitic mass] 29.4 pg Normal 25.9-34.[address] [facility] Comment on above: Performed By: #### E RUR #### [facility] [address] [place] [address] Dr. Mirza Sadler MCHC (RBC) [Mass/Vol] 32.4 g/dL Normal 29.9-35.[address] [facility] Comment on above: Performed By: #### E RUR #### [facility] [address] [place] [address] Dr. Mirza Sadler MCV (RBC) [Entitic vol] 90.6 fL Normal 80.0-94.[address] [facility] Comment on above: Performed By: #### E RUR #### [facility] [address] [place] [address] Dr. Mirza Sadler MONO # 0.5 103/ul Normal 0.3-0.8 [facility] Comment on above: Performed By: #### E RUR #### [facility] [address] [place] [address] Dr. Mirza Sadler Monocytes/100 WBC (Bld) 5.9 % Normal 1.7-12.[address] [facility] Comment on above: Performed By: #### E RUR #### [facility] [address] [place] [address] Dr. Mirza Sadler NEUT # 6.7 103/ul Critically high 1.4-6.5 [facility] Comment on above: Performed By: #### E RUR #### [facility] [address] [place] [address] Dr. Mirza Sadler Neutrophils/100 WBC (Bld) 73.0 % Normal 43.0-75.[address] [facility] Comment on above: Performed By: #### E RUR #### [facility] [address] [place] [address] Dr. Mirza Sadler Platelet mean volume (Bld) [Entitic vol] 10.0 fL Normal 9.5-13.5 [facility] Comment on above: Performed By: #### E RUR #### [facility] [address] [place] [address] Dr. Mirza Sadler PLT 190 103/ul Normal 150-450 [facility] Comment on above: Performed By: #### E RUR #### [facility] [address] [place] [address] Dr. Mirza Sadler RBC 4.90 106/ul Normal 4.70-6.10 [facility] Comment on above: Performed By: #### E RUR #### [facility] [address] [place] [address] Dr. Mirza Sadler WBC 9.2 103/ul Normal 4.0-11.0 [facility] Comment on above: Performed By: #### E RUR #### [facility] [address] [place] [address] CHEST WO CONon [...] HIGINIO FLANAGAN Date: 2022-01-15 08:19 Normal [facility] CULTURE BLOODon 01-15-2022 Microscopic examination of blood, culture Culture Observations: NO GROWTH AT 5 DAYS. Normal [facility] Comment on above: Performed By: #### H STROPN #### [facility] [address] [place] [address] Dr. Mirza Sadler Microscopic examination of blood, culture Culture Observations: NO GROWTH AT 5 DAYS. Normal [facility] Comment on above: Performed By: #### B [id number] #### [facility] [address] [place] [address] Dr. Mirza Sadler [facility]30 SARS-CoV-2 (COVID-19) RNA RAMO+probe Ql (Unsp spec) Not detected Normal NOT DETECTED [facility] Comment on above: Result Comment: When [...] for this test is supported by the Qualification Engineer of Health and Human Service's declaration that [...] longer be used). Performed By: #### B EMPLOYMENT LEGAL ASSISTANT #### [facility] [address] [place] [address] Dr. Mirza Sadler ER URINE PROFILEon 2 Bilirubin Ql (U) Negative Normal NEGATIVE [facility] Comment on above: Performed By: #### C TANIA, CMADM #### [facility] [address] [place] [address] Dr. Mirza Sadler Clarity (U) CLEAR Normal CLEAR [facility] Comment on above: Performed By: #### C MP, CMADM #### [facility] [address] [place] [address] Dr. Mirza Sadler Color (U) LT. YELLOW Normal YELLOW [facility] Comment on above: Performed By: #### C MP, CMADM #### [facility] [address] [place] [address] Dr. Mirza Sadler ERUAHD A micrscopic examina tion will be performed if indicated. Normal [facility] Comment on above: Performed By: #### C MP, CMADM #### [facility] [address] [place] [address] Dr. Mirza Sadler Glucose Ql (U) >1000 Abnormal NEGATIVE [facility] Comment on above: Performed By: #### C MP, CMADM #### [facility] [address] [place] [address] Dr. Mirza Sadler Hemoglobin Ql (U) Negative Normal NEGATIVE [facility] Comment on above: Performed By: #### C MP, CMADM #### [facility] [address] [address] [address] Mirza Sadler Ketones Ql (U) TRACE Abnormal NEGATIVE [facility] Comment on above: Performed By: #### C MP, CMADM #### [facility] [address] [place] [address] Dr. Mirza Sadler LEUKOCYTES Negative Normal NEGATIVE [facility] Comment on above: Performed By: #### C MP, CMADM #### [facility] [address] [address] [address] Mirza Sadler Nitrite Ql (U) Negative Normal NEGATIVE [facility] Comment on above: Performed By: #### C TANIA, CMADM #### [facility] [address] [place] [address] Dr. Mirza Sadler pH (U) 5.5 [pH] Normal 5-[address] [facility] Comment on above: Performed By: #### C TANIA, CMADM #### [facility] [address] [place] [address] Dr. Mirza Sadler SPEC GRAVITY 1.020 Normal 1.005-<=1. [address] [facility] Comment on above: Performed By: #### C TANIA, CMADM #### [facility] [address] [place] [address] Dr. Mirza Sadler UA PROTEIN TRACE Normal NEGATIVE/ TRACE [facility] Comment on above: Performed By: #### C TANIA, CMADM #### [facility] [address] [place] [address] Dr. Mirza Sadler UR MICRO IND NOT INDICATED Normal [facility] Comment on above: Performed By: #### C TANIA, CMADM #### [facility] [address] [place] [address] Dr. Mirza Sadler Urobilinogen Qn (U) 0.2 {Luisito'U}/dL Normal 0.2 - 1. [address] [facility] Comment on above: Performed By: #### C TANIA, CMADM #### [facility] [address] [place] [address] Dr. Mirza Sadler LACTATE/LACTIC ACIDon 2021 Lactate [Moles/Vol] 0.8 mmol/L Normal 0.4-1.9 [facility] Comment on above: Performed By: #### P T, PTT #### [facility] [address] [address] [address] Mirza Sadler PROF 14(COMP METB)on 022 Albumin [Mass/Vol] 4.4 g/dL Normal 3.4-5.0 [facility] Comment on above: Performed By: #### C MP, CMADM #### [facility] [address] [address] [address] Mirza Sadler Albumin/Globulin [Mass ratio] 1.3 {ratio} Normal [facility] Comment on above: Performed By: #### C MP, CMADM #### [facility] [address] [place] [address] Dr. Mirza Sadler ALP [Catalytic activity/Vol] 155 U/L Critically high 46-[address] [facility] Comment on above: Performed By: #### C MP, CMADM #### [facility] [address] [place] [address] Dr. Mirza Sadler ALT [Catalytic activity/Vol] 27 U/L Normal 16-[address] [facility] Comment on above: Performed By: #### C MP, CMADM #### [facility] [address] [address] [address] Mirza Sadler Anion gap [Moles/Vol] 14.9 mmol/L Normal [facility] Comment on above: Performed By: #### C MP, CMADM #### [facility] [address] [address] [address] Mirza Sadler AST [Catalytic activity/Vol] 22 U/L Normal 15-[address] [facility] Comment on above: Performed By: #### C MP, CMADM #### [facility] [address] [address] [address] Mirza Sadler Bilirubin [Mass/Vol] 0.8 mg/dL Normal 0.2-1.[address] [facility] Comment on above: Performed By: #### C MP, CMADM #### [facility] [address] [address] [address] Mirza Sadler Calcium [Mass/Vol] 8.8 mg/dL Normal 8.5-10.1 [facility] Comment on above: Performed By: #### C MP, CMADM #### [facility] [address] [address] [address] Mirza Sadler Chloride [Moles/Vol] 106 mmol/L Normal 98-[address] [facility] Comment on above: Performed By: #### C MP, CMADM #### [facility] [address] [address] [address] Mirza Sadler CO2 [Moles/Vol] 23.9 mmol/L Normal 21.0-32.0 [facility] Comment on above: Performed By: #### C MP, CMADM #### [facility] [address] [place] [address] Dr. Mirza Sadler Creatinine [Mass/Vol] 1.51 mg/dL Critically high 0.70-1.[address] [facility] Comment on above: Performed By: #### C MP, CMADM #### [facility] [address] [address] [address] Mirza Sadler EGFR-AF FIJIAN 56 mL/min/1.73m2 Critically low >=[address] [facility] Comment on above: Performed By: #### C MP, CMADM #### [facility] [address] [place] [address] Dr. Mirza Sadler EGFR-NON AF FIJIAN 46 mL/min/1.73m2 Critically low >=[address] [facility] Comment on above: Performed By: #### C MP, CMADM #### [facility] [address] [address] [address] Mirza Sadler Globulin (S) [Mass/Vol] 3.4 g/dL Normal [facility] Comment on above: Performed By: #### C MP, CMADM #### [facility] [address] [address] [address] Mirza Sadler Glucose [Mass/Vol] 189 mg/dL Critically high 74-106 [facility] Comment on above: Performed By: #### C MP, CMADM #### [facility] [address] [address] [address] Mirza Sadler Potassium [Moles/Vol] 3.8 mmol/L Normal 3.5-5.1 [facility] Comment on above: Performed By: #### C MP, CMADM #### [facility] [address] [address] [address] Mirza Sadler Protein [Mass/Vol] 7.8 g/dL Normal 6.4-8.2 [facility] Comment on above: Performed By: #### C MP, CMADM #### [facility] [address] [address] [address] Mirza Sadelr Sodium [Moles/Vol] 141 mmol/L Normal 136-145 [facility] Comment on above: Performed By: #### C MP, CMADM #### [facility] [address] [place] [address] Dr. Mirza Sadler Urea nitrogen [Mass/Vol] 22.0 mg/dL Critically high 7.0-18.[address] [facility] Comment on above: Performed By: #### C MP, CMADM #### [facility] [address] [place] [address] Dr. Mirza Sadler Urea nitrogen/Creatinine [Mass ratio] 14.6 mg/mg Normal [facility] Comment on above: Performed By: #### C MP, CMADM #### [facility] [address] [place] [address] Dr. Mirza Sadler PROTIMEon 01-15-2022 INR Coag (PPP) [Relative time] 1.10 {INR} Normal [facility] Comment on above: Performed By: #### E RUR #### [facility] [address] [place] [address] Dr. Mirza Sadler INR GUIDELINES SEE BELOW Normal [facility] Comment on above: Result Comment: RIVKA RED INR: 2.0 - 3.0 CONDITIONS NOT LISTED BELOW 2.5 - 3.5 FOR PROSTHETIC HEART VALVE REPLACEMENT 2.5 - 3.5 RECURRENT THROMBOSIS Performed By: #### E RUR #### [facility] [address] [address] [address] Mirza Sadler PT Coag (PPP) [Time] 11.8 s Critically high 9.0-11.6 [facility] Comment on above: Performed By: #### E RUR #### [facility] [address] [address] [address] Mirza Sadler PTTon 01-15-2022 aPTT Coag (Bld) [Time] 29.0 s Normal 22.3-36.2 [facility] Comment on above: Performed By: #### E RUR #### [facility] [address] [address] [address] Mirza Sadler TROPONIN, HIGH SENSITIVITYon 01-15-2022 HSTROP 1786.2 pg/mL Critically high 4.0-76.1 [facility] Comment on above: Result Comment: CUT- OFF POINTS HAVE BEEN ESTABLISHED BASED ON THE FOURTH UNIVERSAL DEFINITIONS OF MYOCARDIAL INFARCTION. THE UPPER REFERENCE LIMIT (URL) OF TROPONIN, DEFINED THE 99TH PERCENTILE OF cTnI DISTRIBUTION IN A REFERENCE POPULATION, HAS BEEN CONFIRMED THE DECISION THRESHOLD FOR NM DIAGNOSIS. Performed By: #### H STROPN #### [facility] [address] [address] [address] Mirza Sadler HSTROP 669.3 pg/mL Critically high 4.0-76.1 [facility] Comment on above: Result Comment: CUT- OFF POINTS HAVE BEEN ESTABLISHED BASED ON THE FOURTH UNIVERSAL DEFINITIONS OF MYOCARDIAL INFARCTION. THE UPPER REFERENCE LIMIT (URL) OF TROPONIN, DEFINED THE 99TH PERCENTILE OF cTnI DISTRIBUTION IN A REFERENCE POPULATION, HAS BEEN CONFIRMED THE DECISION THRESHOLD FOR NM DIAGNOSIS. Performed By: #### H STROPN #### [facility] [address] [address] [address] Mirza Sadler XR CHEST 1 Von [...] WAYNE CASEY Date: 2022-01-15 06:42 Normal [facility] A1C HEMOGLOBINon 12-18-2021 HbA1c (Bld) [Mass fraction] 6.2 % [employer] Other Glucose - FINGER STICKon Glucose [Mass/Vol] 120 mg/dL [employer] Other HbA1c (Bld) [Mass fraction]o n 12-18-2021 A1C HEMOGLOBIN [employer] Other XR CHEST 2 Von 12-08-2021 XR [...] HIGINIO FLANAGAN Date: 2021-12-08 16:07 Normal [facility] PTH INTACTon 12-01-2021 PTH, Intact 15 pg/mL Normal 15-65 [facility] Comment on above: Performed By: #### C MP, CMADM #### [facility] [address] [address] [address] Mirza Sadler VIT D 25-OH LABCORPon 2021 Vitamin D, 25-Hydroxy 41.2 ng/mL Normal 30.0-100.[address] [facility] Comment on above: Result Comment: [place] min D deficiency has been defined by the [place] of [employer] and an Endocrine Society practice guideline as a level of serum 25-OH vitamin D less than 20 ng/mL (1,2). The Endocrine Society went on to further define vitamin D insufficiency as a level between 21 and 29 ng/mL (2). 1. IOM ([place] of Medicine). 2010. Dietary reference intakes for calcium and D. [place]: The National Academies Press. 2. Noemy MF, Sonam PUAL, Jake HERMOSILLO, et al. Evaluation, treatment, and prevention of vitamin D deficiency: an Endocrine Society clinical practice guideline. JCEM. 2010; 96(7):1911-30. Performed By: #### P T, PTT #### [facility] [address] [place] [address] Dr. Mirza Sadler HEMOGRAM AND PLATELon 2021 Hematocrit (Bld) [Volume fraction] 39.9 % Critically low 42.0-54.[address] [facility] Comment on above: Performed By: #### P T, PTT #### [facility] [address] [place] [address] Dr. Mirza Sadler Hemoglobin (Bld) [Mass/Vol] 13.1 g/dL Critically low 14.0-18.0 [facility] Comment on above: Performed By: #### P T, PTT #### [facility] [address] [place] [address] Dr. Mirza Sadler MCH (RBC) [Entitic mass] 29.5 pg Normal 25.9-34.[address] [facility] Comment on above: Performed By: #### P T, PTT #### [facility] [address] [place] [address] Dr. Mirza Sadler MCHC (RBC) [Mass/Vol] 32.8 g/dL Normal 29.9-35.2 [facility] Comment on above: Performed By: #### P T, PTT #### [facility] [address] [place] [address] Dr. Mirza Sadler MCV (RBC) [Entitic vol] 89.9 fL Normal 80.0-94.[address] [facility] Comment on above: Performed By: #### P T, PTT #### [facility] [address] [place] [address] Dr. Mirza Sadler PLT 182 103/ul Normal 150-450 [facility] Comment on above: Performed By: #### P T, PTT #### [facility] [address] [place] [address] Dr. Mirza Sadler RBC 4.44 106/ul Critically low 4.70-6.10 [facility] Comment on above: Performed By: #### P T, PTT #### [facility] [address] [place] [address] Dr. Mirza Sadler WBC 6.9 103/ul Normal 4.0-11.0 [facility] Comment on above: Performed By: #### P T, PTT #### [facility] [address] [place] [address] Dr. Mirza Sadler MAGNESIUMon 11-30-2021 Magnesium [Mass/Vol] 1.8 mg/dL Normal 1.8-2.4 [facility] Comment on above: Performed By: #### P T, PTT #### [facility] [address] [place] [address] Dr. Mirza Sadler RENAL FUNCTION PANELon 11-30 Albumin [Mass/Vol] 3.9 g/dL Normal 3.4-5.0 [facility] Comment on above: Performed By: #### P T, PTT #### [facility] [address] [place] [address] Dr. Mirza Sadler Calcium [Mass/Vol] 9.0 mg/dL Normal 8.5-10.1 [facility] Comment on above: Performed By: #### P T, PTT #### [facility] [address] [place] [address] Dr. Mirza Sadler Chloride [Moles/Vol] 107 mmol/L Normal 98-107 [facility] Comment on above: Performed By: #### P T, PTT #### [facility] [address] [place] [address] Dr. Mirza Sadler CO2 [Moles/Vol] 26.2 mmol/L Normal 21.0-32.0 [facility] Comment on above: Performed By: #### P T, PTT #### [facility] [address] [address] [address] Mirza Sadler Creatinine [Mass/Vol] 1.55 mg/dL Critically high 0.70-1.[address] [facility] Comment on above: Performed By: #### P T, PTT #### [facility] [address] [address] [address] Mirza Sadler EGFR-AF FIJIAN 54 mL/min/1.73m2 Critically low >=[address] [facility] Comment on above: Performed By: #### P T, PTT #### [facility] [address] [address] [address] Mirza Sadler EGFR-NON AF FIJIAN 45 mL/min/1.73m2 Critically low >=[address] [facility] Comment on above: Performed By: #### P T, PTT #### [facility] [address] [place] [address] Dr. Mirza Sadler Glucose [Mass/Vol] 166 mg/dL Critically high 74-106 [facility] Comment on above: Performed By: #### P T, PTT #### [facility] [address] [address] [address] Mirza Sadler Phosphate [Mass/Vol] 3.7 mg/dL Normal 2.6-4.[address] [facility] Comment on above: Performed By: #### P T, PTT #### [facility] [address] [place] [address] Dr. Mirza Sadler Potassium [Moles/Vol] 4.2 mmol/L Normal 3.5-5.[address] [facility] Comment on above: Performed By: #### P T, PTT #### [facility] [address] [address] [address] Mirza Sadler Sodium [Moles/Vol] 142 mmol/L Normal 136-145 [facility] Comment on above: Performed By: #### P T, PTT #### [facility] [address] [address] [address] Mirza Sadler Urea nitrogen [Mass/Vol] 16.0 mg/dL Normal 7.0-18.[address] [facility] Comment on above: Performed By: #### P T, PTT #### [facility] [address] [place] [address] Dr. Mirza Sadler UA RANDOM W/MICROSCOPICon BACTERIA NONE SEEN Normal NONE SEEN [facility] Comment on above: Performed By: #### B LDCX2 #### [facility] [address] [place] [address] Dr. Mirza Sadler Bilirubin Ql (U) Negative Normal NEGATIVE [facility] Comment on above: Performed By: #### B LDCX2 #### [facility] [address] [place] [address] Dr. Mirza Sadler CAST NONE SEEN Normal NONE SEEN [facility] Comment on above: Performed By: #### B LDCX2 #### [facility] [address] [place] [address] Dr. Mirza Sadler Clarity (U) CLEAR Normal CLEAR [facility] Comment on above: Performed By: #### B LDCX2 #### [facility] [address] [place] [address] Dr. Mirza Sadler Color (U) LT. YELLOW Normal YELLOW [facility] Comment on above: Performed By: #### B LDCX2 #### [facility] [address] [place] [address] Dr. Mirza Sadler Crystals LM Nom (Urine sed) NONE SEEN Normal NONE SEEN [facility] Comment on above: Performed By: #### B LDCX2 #### [facility] [address] [place] [address] Dr. Mirza Sadler Epithelial cells LM Ql (Urine sed) RARE Normal NONE SEEN /RARE [facility] Comment on above: Performed By: #### B LDCX2 #### [facility] [address] [place] [address] Dr. Mirza Sadler Glucose Ql (U) >1000 Abnormal NEGATIVE [facility] Comment on above: Performed By: #### B LDCX2 #### [facility] [address] [place] [address] Dr. Mirza Sadler Hemoglobin Ql (U) Negative Normal NEGATIVE [facility] Comment on above: Performed By: #### B LDCX2 #### [facility] [address] [place] [address] Dr. Mirza Sadler Ketones Ql (U) Negative Normal NEGATIVE [facility] Comment on above: Performed By: #### B LDCX2 #### [facility] [address] [place] [address] Dr. Mirza Sadler LEUKOCYTES Negative Normal NEGATIVE [facility] Comment on above: Performed By: #### B LDCX2 #### [facility] [address] [place] [address] Dr. Mirza Sadler MUCOUS NONE SEEN Normal NONE SEEN [facility] Comment on above: Performed By: #### B LDCX2 #### [facility] [address] [place] [address] Dr. Mirza Sadler Nitrite Ql (U) Negative Normal NEGATIVE [facility] Comment on above: Performed By: #### B LDCX2 #### [facility] [address] [place] [address] Dr. Mirza Sadler pH (U) 5.5 [pH] Normal 5-[address] [facility] Comment on above: Performed By: #### B LDCX2 #### [facility] [address] [place] [address] Dr. Mirza Sadler RBC NONE SEEN Abnormal 0-2 [facility] Comment on above: Performed By: #### B LDCX2 #### [facility] [address] [place] [address] Dr. Mirza Sadler SPEC GRAVITY 1.015 Normal 1.005-<=1. 025 [facility] Comment on above: Performed By: #### B LDCX2 #### [facility] [address] [place] [address] Dr. Mirza Sadler UA PROTEIN Negative Normal NEGATIVE/ TRACE [facility] Comment on above: Performed By: #### B LDCX2 #### [facility] [address] [place] [address] Dr. Mirza Sadler Urobilinogen Qn (U) 0.2 {Luisito'U}/dL Normal 0.2 - 1. [address] [facility] Comment on above: Performed By: #### B LDCX2 #### [facility] [address] [address] [address] Mirza Sadler WBC NONE SEEN Normal NONE SEEN [facility] Comment on above: Performed By: #### B LDCX2 #### [facility] [address] [address] [address] Mirza Sadler URINE T PROTEIN CREAT RATIOo n 11-30-2021 Protein (U) [Mass/Vol] 22.4 mg/dL Critically high <=12.[address] [facility] Comment on above: Performed By: #### U RTPCR #### [facility] [address] [place] [address] Dr. Mirza Sadler UR PROT CREAT RAT 0.31 Normal [facility] Comment on above: Performed By: #### U RTPCR #### [facility] [address] [place] [address] Dr. Mirza Sadler URINE CREAT 73.05 mg/dL Normal 20.00-300. [address] [facility] Comment on above: Performed By: #### U RTPCR #### [facility] [address] [place] [address] Dr. Mirza Sadler NM HEPATOBILIARY SCAN W [...] by: HIGINIO FLANAGAN Date: 2021-11-24 11:[address] [facility] BNPon 10-27-2021 Natriuretic peptide B (Bld) [Mass/Vol] 574.0 pg/mL Normal <=900.0 [facility] Comment on above: Performed By: #### P T, PTT #### [facility] [address] [place] [address] Dr. Mirza Sadler CARDIAC PARUL ADMITon 022 CK [Catalytic activity/Vol] 70 U/L Normal 39-308 [facility] Comment on above: Performed By: #### P T, PTT #### [facility] [address] [place] [address] Dr. Mirza Sadler CK.MB [Mass/Vol] 1.10 ng/mL Normal <=3.60 [facility] Comment on above: Performed By: #### P T, PTT #### [facility] [address] [place] [address] Dr. Mirza Sadelr HSTROP 22.3 pg/mL Normal 4.0-76.1 [facility] Comment on above: Result Comment: CUT- OFF POINTS HAVE BEEN ESTABLISHED BASED ON THE FOURTH UNIVERSAL DEFINITIONS OF MYOCARDIAL INFARCTION. THE UPPER REFERENCE LIMIT (URL) OF TROPONIN, DEFINED THE 99TH PERCENTILE OF cTnI DISTRIBUTION IN A REFERENCE POPULATION, HAS BEEN CONFIRMED THE DECISION THRESHOLD FOR NM DIAGNOSIS. Performed By: #### P T, PTT #### [facility] [address] [place] [address] Dr. Mirza Sadler RACHEL 81 ng/mL Normal 16-96 [facility] Comment on above: Performed By: #### P T, PTT #### [facility] [address] [place] [address] Dr. Mirza Sadlre CBC AUTO DIFFon 10-27-2021 BASO # 0.1 103/ul Normal 0.0-0.1 [facility] Comment on above: Performed By: #### E RUR #### [facility] [address] [place] [address] Dr. Mirza Sadler Basophils/100 WBC (Bld) 0.4 % Normal 0.2-2.0 [facility] Comment on above: Performed By: #### E RUR #### [facility] [address] [place] [address] Dr. Mirza Sadler EO # 0.1 103/ul Normal 0.0-0.[address] [facility] Comment on above: Performed By: #### E RUR #### [facility] [address] [place] [address] Dr. Mirza Sadler Eosinophils/100 WBC (Bld) 0.4 % Critically low 0.9-7.[address] [facility] Comment on above: Performed By: #### E RUR #### [facility] [address] [place] [address] Dr. Mirza Sadler Erythrocyte distribution width (RBC) [Ratio] 14.1 % Normal 11.0-15.[address] [facility] Comment on above: Performed By: #### E RUR #### [facility] [address] [place] [address] Dr. Mirza Sadler Hematocrit (Bld) [Volume fraction] 41.0 % Critically low 42.0-54.[address] [facility] Comment on above: Performed By: #### E RUR #### [facility] [address] [place] [address] Dr. Mirza Sadler Hemoglobin (Bld) [Mass/Vol] 14.1 g/dL Normal 14.0-18.[address] [facility] Comment on above: Performed By: #### E RUR #### [facility] [address] [place] [address] Dr. Mirza Sadler IG # 0.05 10e3/ul Critically high 0.00-0.03 [facility] Comment on above: Performed By: #### E RUR #### [facility] [address] [place] [address] Dr. Mirza Sadler IG % 0.4 % Normal 0.0-0.[address] [facility] Comment on above: Performed By: #### E RUR #### [facility] [address] [place] [address] Dr. Mirza Sadler LYMPH # 0.9 103/ul Critically low 1.2-3.8 [facility] Comment on above: Performed By: #### E RUR #### [facility] [address] [place] [address] Dr. Mirza Sadler Lymphocytes/100 WBC (Bld) 6.6 % Critically low 20.5-60.[address] [facility] Comment on above: Performed By: #### E RUR #### [facility] [address] [place] [address] Dr. Mirza Sadler MANUAL DIFF REQ NO Normal [facility] Comment on above: Performed By: #### E RUR #### [facility] [address] [place] [address] Dr. Mirza Sadler MCH (RBC) [Entitic mass] 29.7 pg Normal 25.9-34.[address] [facility] Comment on above: Performed By: #### E RUR #### [facility] [address] [place] [address] Dr. Mirza Sadler MCHC (RBC) [Mass/Vol] 34.4 g/dL Normal 29.9-35.[address] [facility] Comment on above: Performed By: #### E RUR #### [facility] [address] [place] [address] Dr. Mirza Sadler MCV (RBC) [Entitic vol] 86.3 fL Normal 80.0-94.[address] [facility] Comment on above: Performed By: #### E RUR #### [facility] [address] [place] [address] Dr. Mirza Sadler MONO # 0.4 103/ul Normal 0.3-0.[address] [facility] Comment on above: Performed By: #### E RUR #### [facility] [address] [place] [address] Dr. Mirza Sadler Monocytes/100 WBC (Bld) 2.6 % Normal 1.7-12.0 [facility] Comment on above: Performed By: #### E RUR #### [facility] [address] [place] [address] Dr. Mirza Sadler NEUT # 12.2 103/ul Critically high 1.4-6.5 [facility] Comment on above: Performed By: #### E RUR #### [facility] [address] [place] [address] Dr. Mirza Sadler Neutrophils/100 WBC (Bld) 89.6 % Critically high 43.0-75.[address] [facility] Comment on above: Performed By: #### E RUR #### [facility] [address] [place] [address] Dr. Mirza Sadler Platelet mean volume (Bld) [Entitic vol] 9.7 fL Normal 9.5-13.[address] [facility] Comment on above: Performed By: #### E RUR #### [facility] [address] [place] [address] Dr. Mirza Sadler PLT 183 103/ul Normal 150-[address] [facility] Comment on above: Performed By: #### E RUR #### [facility] [address] [place] [address] Dr. Mirza Sadler RBC 4.75 106/ul Normal 4.70-6.[address] [facility] Comment on above: Performed By: #### E RUR #### [facility] [address] [place] [address] Dr. Mirza Sadler WBC 13.7 103/ul Critically high 4.0-11.0 [facility] Comment on above: Performed By: #### E RUR #### [facility] [address] [place] [address] Dr. Mirza Sadler CULTURE BLOODon 10-27-2021 Microscopic examination of blood, culture Culture Observations: NO GROWTH AT 5 DAYS. Normal [facility] Comment on above: Performed By: #### B LDCX2 #### [facility] [address] [place] [address] Dr. Mirza Sadler Performed By: #### H STROPN #### [facility] [address] [place] [address] Dr. Mirza Sadler Covid-19 PCR (CVDTB)on 09-30 SARS-CoV-2 (COVID-19) RNA RAMO+probe Ql (Unsp spec) Not detected Normal NOT DETECTED [facility] Comment on above: Result Comment: When [...] for this test is supported by the Qualification Engineer of Health and Human Service's declaration that [...] Performed By: #### P T, PTT #### [facility] [address] [place] [address] Dr. Mirza Sadler ER URINE PROFILEon 2 Bilirubin Ql (U) Negative Normal NEGATIVE [facility] Comment on above: Performed By: #### H STROPN #### [facility] [address] [place] [address] Dr. Mirza Sadler Clarity (U) CLEAR Normal CLEAR [facility] Comment on above: Performed By: #### H STROPN #### [facility] [address] [place] [address] Dr. Mirza Sadler Color (U) YELLOW Normal YELLOW [facility] Comment on above: Performed By: #### H STROPN #### [facility] [address] [place] [address] Dr. Mirza Sadler ERUAHD A micrscopic examina tion will be performed if indicated. Normal [facility] Comment on above: Performed By: #### H STROPN #### [facility] [address] [place] [address] Dr. Mirza Sadler Glucose Ql (U) >1000 Abnormal NEGATIVE [facility] Comment on above: Performed By: #### H STROPN #### [facility] [address] [place] [address] Dr. Mirza Sadler Hemoglobin Ql (U) Negative Normal NEGATIVE [facility] Comment on above: Performed By: #### H STROPN #### [facility] [address] [place] [address] Dr. Mirza Sadler Ketones Ql (U) TRACE Abnormal NEGATIVE [facility] Comment on above: Performed By: #### H STROPN #### [facility] [address] [place] [address] Dr. Mirza Sadler LEUKOCYTES Negative Normal NEGATIVE [facility] Comment on above: Performed By: #### H STROPN #### [facility] [address] [place] [address] Dr. Mirza Sadler Nitrite Ql (U) Negative Normal NEGATIVE [facility] Comment on above: Performed By: #### H STROPN #### [facility] [address] [place] [address] Dr. Mirza Sadler pH (U) 5.5 [pH] Normal 5-[address] [facility] Comment on above: Performed By: #### H STROPN #### [facility] [address] [place] [address] Dr. Mirza Sadler SPEC GRAVITY 1.010 Normal 1.005-<=1. [address] [facility] Comment on above: Performed By: #### H STROPN #### [facility] [address] [place] [address] Dr. Mirza Sadler UA PROTEIN Negative Normal NEGATIVE/ TRACE [facility] Comment on above: Performed By: #### H STROPN #### [facility] [address] [place] [address] Dr. Mirza Sadler UR MICRO IND NOT INDICATED Normal [facility] Comment on above: Performed By: #### H STROPN #### [facility] [address] [place] [address] Dr. Mirza Sadler Urobilinogen Qn (U) 0.2 {Luisito'U}/dL Normal 0.2 - 1. [address] [facility] Comment on above: Performed By: #### H STROPN #### [facility] [address] [place] [address] Dr. Mirza Sadler INFLUENZA A AND B AGon 10-27 INFLUANEGH SEE BELOW Normal [facility] Comment on above: Result Comment: Nega tive for Flu A protein angiten. Infection due to Flu A cannot be ruled out. Flu A angiten in the sample may be below the detection limit of the test. Performed By: #### B EMPLOYMENT LEGAL ASSISTANT #### [facility] [address] [place] [address] Dr. Mirza Sadler INFLUBNEGH SEE BELOW Normal [facility] Comment on above: Result Comment: Nega tive for Flu B protein antigen. Infection due to Flu B cannot be ruled out. Flu B antigen in the sample may be below the detection limit of the test. Performed By: #### B EMPLOYMENT LEGAL ASSISTANT #### [facility] [address] [place] [address] Dr. Mirza Sadler INFLUENZA A AG Negative Normal NEGATIVE SEE COMMENT [facility] Comment on above: Performed By: #### B EMPLOYMENT LEGAL ASSISTANT #### [facility] [address] [place] [address] Dr. Mirza Sadler INFLUENZA B AG Negative Normal NEGATIVE SEE COMMENT [facility] Comment on above: Performed By: #### B EMPLOYMENT LEGAL ASSISTANT #### [facility] [address] [place] [address] Dr. Mirza Sadler INTERNAL CONTROLS Within Normal Limits Normal Wi thin Normal Limits [facility] Comment on above: Performed By: #### B EMPLOYMENT LEGAL ASSISTANT #### [facility] [address] [place] [address] Dr. Mirza Sadler LACTATE/LACTIC ACIDon 2021 Lactate [Moles/Vol] 1.8 mmol/L Normal 0.4-1.9 [facility] Comment on above: Performed By: #### C MP, CMADM #### [facility] [address] [place] [address] Dr. Mirza Sadler LIPASEon 10-27-2021 Lipase [Catalytic activity/Vol] 87.0 U/L Normal 73.0-393.[address] [facility] Comment on above: Performed By: #### P T, PTT #### [facility] [address] [place] [address] Dr. Mirza Sadler PH VENOUS BLOODon 10-27-2021 PCO2 VENOUS 37.6 mmHg Critically low 40.0-52.0 [facility] Comment on above: Performed By: #### P T, PTT #### [facility] [address] [place] [address] Dr. Mirza Sadler pH VENOUS 7.422 Normal 7.330-7.[address] [facility] Comment on above: Performed By: #### P T, PTT #### [facility] [address] [place] [address] Dr. Mirza Sadler PROF 14(COMP METB)on 022 Albumin [Mass/Vol] 4.2 g/dL Normal 3.4-5.0 [facility] Comment on above: Performed By: #### P T, PTT #### [facility] [address] [place] [address] Dr. Mirza Sadler Albumin/Globulin [Mass ratio] 1.3 {ratio} Normal [facility] Comment on above: Performed By: #### P T, PTT #### [facility] [address] [place] [address] Dr. Mirza Sadler ALP [Catalytic activity/Vol] 121 U/L Critically high 46-[address] [facility] Comment on above: Performed By: #### P T, PTT #### [facility] [address] [place] [address] Dr. Mirza Sadler ALT [Catalytic activity/Vol] 22 U/L Normal 16-[address] [facility] Comment on above: Performed By: #### P T, PTT #### [facility] [address] [place] [address] Dr. Mirza Sadler Anion gap [Moles/Vol] 16.0 mmol/L Normal [facility] Comment on above: Performed By: #### P T, PTT #### [facility] [address] [place] [address] Dr. Mirza Sadler AST [Catalytic activity/Vol] 18 U/L Normal 15-[address] [facility] Comment on above: Performed By: #### P T, PTT #### [facility] [address] [address] [address] Mirza Sadler Bilirubin [Mass/Vol] 1.3 mg/dL Critically high 0.2-1.[address] [facility] Comment on above: Performed By: #### P T, PTT #### [facility] [address] [place] [address] Dr. Mirza Sadler Calcium [Mass/Vol] 8.9 mg/dL Normal 8.5-10.1 [facility] Comment on above: Performed By: #### P T, PTT #### [facility] [address] [place] [address] Dr. Mirza Sadler Chloride [Moles/Vol] 105 mmol/L Normal 98-[address] [facility] Comment on above: Performed By: #### P T, PTT #### [facility] [address] [place] [address] Dr. Mirza Sadler CO2 [Moles/Vol] 23.7 mmol/L Normal 21.0-32.0 [facility] Comment on above: Performed By: #### P T, PTT #### [facility] [address] [place] [address] Dr. Mirza Sadler Creatinine [Mass/Vol] 1.79 mg/dL Critically high 0.70-1.[address] [facility] Comment on above: Performed By: #### P T, PTT #### [facility] [address] [place] [address] Dr. Mirza Sadler EGFR-AF FIJIAN 46 mL/min/1.73m2 Critically low >=60 [facility] Comment on above: Performed By: #### P T, PTT #### [facility] [address] [place] [address] Dr. Mirza Sadler EGFR-NON AF FIJIAN 38 mL/min/1.73m2 Critically low >=[address] [facility] Comment on above: Performed By: #### P T, PTT #### [facility] [address] [place] [address] Dr. Mirza Sadler Globulin (S) [Mass/Vol] 3.3 g/dL Normal [facility] Comment on above: Performed By: #### P T, PTT #### [facility] [address] [address] [address] Mirza Sadler Glucose [Mass/Vol] 195 mg/dL Critically high 74-106 [facility] Comment on above: Performed By: #### P T, PTT #### [facility] [address] [address] [address] Mirza Sadler Potassium [Moles/Vol] 3.7 mmol/L Normal 3.5-5.[address] [facility] Comment on above: Performed By: #### P T, PTT #### [facility] [address] [address] [address] Mirza Sadler Protein [Mass/Vol] 7.5 g/dL Normal 6.4-8.2 [facility] Comment on above: Performed By: #### P T, PTT #### [facility] [address] [place] [address] Dr. Mirza Sadler Sodium [Moles/Vol] 141 mmol/L Normal 136-145 [facility] Comment on above: Performed By: #### P T, PTT #### [facility] [address] [address] [address] Mirza Sadler Urea nitrogen [Mass/Vol] 25.0 mg/dL Critically high 7.0-18.[address] [facility] Comment on above: Performed By: #### P T, PTT #### [facility] [address] [address] [address] Mirza Sadler Urea nitrogen/Creatinine [Mass ratio] 14.0 mg/mg Normal [facility] Comment on above: Performed By: #### P T, PTT #### [facility] [address] [address] [address] Mirza Sadler PROTIMEon 10-27-2021 INR Coag (PPP) [Relative time] 1.07 {INR} Normal [facility] Comment on above: Performed By: #### P T, PTT #### [facility] [address] [place] [address] Dr. Mirza Sadler INR GUIDELINES SEE BELOW Normal [facility] Comment on above: Result Comment: RIVKA RED INR: 2.0 - 3.0 CONDITIONS NOT LISTED BELOW 2.5 - 3.5 FOR PROSTHETIC HEART VALVE REPLACEMENT 2.5 - 3.5 RECURRENT THROMBOSIS Performed By: #### P T, PTT #### [facility] [address] [place] [address] Dr. Mirza Sadler PT Coag (PPP) [Time] 11.5 s Normal 9.0-11.[address] [facility] Comment on above: Performed By: #### P T, PTT #### [facility] [address] [address] [address] Mirza Sadler PTTon 10-27-2021 aPTT Coag (Bld) [Time] 25.1 s Normal 22.3-36.2 [facility] Comment on above: Performed By: #### P T, PTT #### [facility] [address] [place] [address] Dr. Mirza Sadler XR CHEST 1 Von [...] by: GAGAN CAREY Date: 2021-10-27 10:21 Normal [facility] 10-20-2021 CNPN Telephone (HEMASA) -- LANI LIZAMA ([id number]) 1950 Date Time Provider Department 10/20/21 ABDON WALKER During your visit today, we recorded the following information about you: Vee Day 10/20/2021 9:43 AM Signed New CBC order. Vee Day Allergies As of Date: 10/20/2021 Noted Allergy Reaction Nkda [Other] 07/28/2018 16 - Unknown Comments: Received name: Dayana Date Reviewed: 10/20/2021 Reviewed by: Vickie Barrera PA-C - Fully Assessed Reason for Visit: Lab Orders [4618] Primary Visit Diagnosis:Monoclonal gammopathy [D47.2] Order(s):CBC + DIFF [SQCBCDIF] Order #: [id number] FUTURE Prescriptions as of 10/24/2021 - famotidine [...] Status:Closed by VEE DAY on 10/24/21 Normal [facility] RAD - CT Reporton 10-06-2021 RAD - CT Report [id number]:[address] [facility] [address] ABD/PELVIS WO CONon 10-03 CT ABD/PELVIS [...] by: HIGINIO FLANAGAN Date: 2021-10-03 16:[address] 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 Mirza Sadler Albumin/Globulin [Mass ratio] 1.2 {ratio} Normal [facility] Comment on above: Performed By: #### P T, PTT #### [facility] [address] [place] [address] Dr. Mirza Sadler ALP [Catalytic activity/Vol] 132 U/L Critically high 46-[address] [facility] Comment on above: Performed By: #### P T, PTT #### [facility] [address] [address] [address] Mirza Sadler ALT [Catalytic activity/Vol] 30 U/L Normal 16-[address] [facility] Comment on above: Performed By: #### P T, PTT #### [facility] [address] [address] [address] Mirza Sadler Anion gap [Moles/Vol] 10.7 mmol/L Normal [facility] Comment on above: Performed By: #### P T, PTT #### [facility] [address] [address] [address] Mirza Sadler AST [Catalytic activity/Vol] 21 U/L Normal 15-[address] [facility] Comment on above: Performed By: #### P T, PTT #### [facility] [address] [place] [address] Dr. Mirza Sadler Bilirubin [Mass/Vol] 0.7 mg/dL Normal 0.2-1.[address] [facility] Comment on above: Performed By: #### P T, PTT #### [facility] [address] [address] [address] Mirza Sadler Calcium [Mass/Vol] 9.0 mg/dL Normal 8.5-10.1 [facility] Comment on above: Performed By: #### P T, PTT #### [facility] [address] [address] [address] Mirza Sadler Chloride [Moles/Vol] 106 mmol/L Normal 98-[address] [facility] Comment on above: Performed By: #### P T, PTT #### [facility] [address] [address] [address] Mirza Sadler CO2 [Moles/Vol] 27.5 mmol/L Normal 21.0-32.0 [facility] Comment on above: Performed By: #### P T, PTT #### [facility] [address] [place] [address] Dr. Mirza Sadler Creatinine [Mass/Vol] 1.77 mg/dL Critically high 0.70-1.[address] [facility] Comment on above: Performed By: #### P T, PTT #### [facility] [address] [address] [address] Mirza Sadler EGFR-AF FIJIAN 46 mL/min/1.73m2 Critically low >=[address] [facility] Comment on above: Performed By: #### P T, PTT #### [facility] [address] [place] [address] Dr. Mirza Sadler EGFR-NON AF FIJIAN 38 mL/min/1.73m2 Critically low >=[address] [facility] Comment on above: Performed By: #### P T, PTT #### [facility] [address] [address] [address] Mirza Sadler Globulin (S) [Mass/Vol] 3.5 g/dL Normal [facility] Comment on above: Performed By: #### P T, PTT #### [facility] [address] [address] [address] Mizra Sadler Glucose [Mass/Vol] 135 mg/dL Critically high 74-106 [facility] Comment on above: Performed By: #### P T, PTT #### [facility] [address] [address] [address] Mirza Sadler Potassium [Moles/Vol] 4.2 mmol/L Normal 3.5-5.[address] [facility] Comment on above: Performed By: #### P T, PTT #### [facility] [address] [address] [address] Mirza Sadler Protein [Mass/Vol] 7.6 g/dL Normal 6.4-8.2 [facility] Comment on above: Performed By: #### P T, PTT #### [facility] [address] [address] [address] Mirza Sadler Sodium [Moles/Vol] 140 mmol/L Normal 136-145 [facility] Comment on above: Performed By: #### P T, PTT #### [facility] [address] [address] [address] Mirza Sadler Urea nitrogen [Mass/Vol] 17.0 mg/dL Normal 7.0-18.[address] [facility] Comment on above: Performed By: #### P T, PTT #### [facility] [address] [address] [address] Mirza Sadler Urea nitrogen/Creatinine [Mass ratio] 9.6 mg/mg Normal [facility] Comment on above: Performed By: #### P T, PTT #### [facility] [address] [address] [address] Mirza Sadler US SINGLE QUAD RT [facility] US SINGLE QUAD RT UPPER EXAMINATION: US [...] by: HIGINIO FLANAGAN Date: 2021-08-27 08:[address] [facility] A1C HEMOGLOBINon 07-17-2021 HbA1c (Bld) [Mass fraction] 6.9 % [employer] Other Glucose - FINGER STICKon Glucose [Mass/Vol] 180 mg/dL [employer] Other HbA1c (Bld) [Mass fraction]o n 07-17-2021 A1C HEMOGLOBIN [employer] Other A1C with Estimated Average G luon 04-10-2021 HbA1c (Bld) [Mass fraction] 6.4 % [employer] Other HbA1c (Bld) [Mass fraction] 243 % [employer] Other Glucoseon 04-10-2021 Glucose [Mass/Vol] 243 mg/dL [employer] Other A1C HEMOGLOBINon 01-03-2021 HbA1c (Bld) [Mass fraction] 6.6 % [employer] Other Glucose - FINGER STICKon Glucose [Mass/Vol] 142 mg/dL [employer] Other HbA1c (Bld) [Mass fraction]o n 01-03-2021 A1C HEMOGLOBIN [employer] Other CNPNon 10-27-2020 CNPN Telephone (mojioASA) -- LANI LIZAMA ([id number]) 1950 M Date Time Provider Department 10/27/20 [...] Status:Closed by ANGELINE WARE on 10/28/20 Normal [facility] Cardiovascular Lab Reporton 10-16-2018 Cardiovascular Lab Report [facility] Patient Name: [facility] MR #: [id number] Physician: Pinky Bishop Department of M.D. Medicine Service Date: 10/15/2018 Division of Birthdate: 1950 Cardiology Room #: [id number] Adult [facility] Services [place] [address] Cardiovascular Laboratory Report FINAL IMPRESSIONS: 1. Severe three-vessel inupiat coronary artery disease. 2. Ihyf-ix-ffjj bypass grafts patent. 3. Mild in-stent restenosis [...] 4. Follow up with me in the [facility] in the next 4-6 weeks. 5. Follow [...] guidance and using a micropuncture kit. A 6-[place] Glidesheath was inserted without difficulty. Coronary angiography [...] of the vessel. There is evidence of kabj-rr-grsei collaterals. The distal vessel is supplied via [...] is a long stented segment in the mdxvpphk-xn-asicuq portion of the vessel with 30% in-stent restenosis. The vessel distal to the touchdown shows caliber reduction and no discrete stenosis. There is diffuse disease in the branches. Saphenous vein graft to the posterior descending artery. This is widely patent. It shows an extensive stented segment from mfzcewaa-ly-wchbqgvohv of the vessel. There is a 40%-50% [...] Nakul/Pinky Bishop M.D. Date Trans: 10/16/2018 05:01 Brandie DN_JN:[id number] cc: Harley Crespo D.O. [address] [place] [id number] Normal [facility] BASIC METABOLIC PANELon 09-29 Calcium [Mass/Vol] 8.9 mg/dL Normal 8.6-10.3 [facility] Comment on above: Order Comment: No: D o not add to previous draw Performed By: #### 1 0070, [id number] #### [facility] [address] [place] [address], [facility] Chloride [Moles/Vol] 110 mmol/L High 98-107 [facility] Comment on above: Order Comment: No: D o not add to previous draw Performed By: #### 1 0070, [id number] #### [facility] [address] [place] [address], [facility] CO2 [Moles/Vol] 26 mmol/L Normal 21-31 [facility] Comment on above: Order Comment: No: D o not add to previous draw Performed By: #### 1 69, 31038 #### [facility] [address] [place] [address], [place] Creatinine [Mass/Vol] 1.52 mg/dL High 0.70-1.30 [facility] Comment on above: Order Comment: No: D o not add to previous draw Performed By: #### 1 69, 29003 #### [facility] [address] [place] [address], [place] GFR/1.73 sq M predicted among blacks MDRD (S/P/Bld) [Vol rate/Area] 56 ml/min/1.73sq m Abnormal >60 [facility] Comment on above: Order Comment: No: D o not add to previous draw Performed By: #### 1 69, [id number] #### [facility] [address] [place] [address], [place] GFR/1.73 sq M predicted among non-blacks MDRD (S/P/Bld) [Vol rate/Area] 46 ml/min/1.73sq m Abnormal >60 [facility] Comment on above: Order Comment: No: D o not add to previous draw Performed By: #### 1 69, 49923 #### [facility] [address] [place] [address], [place] Glucose [Mass/Vol] 89 mg/dL Normal 70-100 [facility] Comment on above: Order Comment: No: D o not add to previous draw Performed By: #### 1 69, 74729 #### [facility] [address] [place] [address], [place] Potassium [Moles/Vol] 3.9 mmol/L Normal 3.5-5.1 [facility] Comment on above: Order Comment: No: D o not add to previous draw Performed By: #### 1 69, 40818 #### [facility] [address] Sodium [Moles/Vol] 141 mmol/L Normal 136-145 [facility] Comment on above: Order Comment: No: D o not add to previous draw Performed By: #### 1 69, 14312 #### [facility] [address] [facility] Urea nitrogen [Mass/Vol] 19 mg/dL Normal 7-25 [facility] Comment on above: Order Comment: No: D o not add to previous draw Performed By: #### 1 69, 25813 #### [facility] [address] [facility] [address] CBC W/DIFFon 10-15-2018 ABS BASOPHILS 0.1 10*3/uL Normal 0.0-0.2 [facility] Comment on above: Order Comment: No: D o not add to previous draw Performed By: #### 5 0103 #### [facility] [address] [facility] [address] ABS IMM GRANS 0.0 10*3/uL Normal 0.0-0.2 [facility] Comment on above: Order Comment: No: D o not add to previous draw Performed By: #### 5 0103 #### [facility] [address] [facility]. [address] ABS NEUTROPHILS 3.5 10*3/uL Normal 1.6-7.6 [facility] Comment on above: Order Comment: No: D o not add to previous draw Performed By: #### 5 0103 #### [facility] [address] [facility]. [address] Basophils/100 WBC (Bld) 0.8 % Normal 0.0-1.0 [facility] Comment on above: Order Comment: No: D o not add to previous draw Performed By: #### 5 0103 #### [facility] [address] [place] [address], [facility] Eosinophils (Bld) [#/Vol] 0.3 10*3/uL Normal 0.0-0.5 [facility] Comment on above: Order Comment: No: D o not add to previous draw Performed By: #### 5 0103 #### [facility] [address] [place] [id number], [facility] Eosinophils/100 WBC (Bld) 3.9 % Normal 0.0-6.0 [facility] Comment on above: Order Comment: No: D o not add to previous draw Performed By: #### 5 0103 #### [facility] [address] [place] [address], [facility] Erythrocyte distribution width (RBC) [Ratio] 13.5 % Normal 11.5-15.0 [facility] Comment on above: Order Comment: No: D o not add to previous draw Performed By: #### 5 0103 #### [facility] [address] [facility] [place] [address], [facility] Hematocrit (Bld) [Volume fraction] 39.7 % Normal 39.0-50.0 [facility] Comment on above: Order Comment: No: D o not add to previous draw Performed By: #### 5 3 #### [facility] [address] [place] [address], [facility] Hemoglobin (Bld) [Mass/Vol] 13.0 g/dL Normal 13.0-17.0 [facility] Comment on above: Order Comment: No: D o not add to previous draw Performed By: #### 5 0103 #### [facility] [address] [facility] [place] [address], [facility] IMMATURE GRANS 0.3 % Normal 0.0-1.0 [facility] Comment on above: Order Comment: No: D o not add to previous draw Performed By: #### 5 0103 #### [facility] [address] [facility] [place] [address], [facility] Lymphocytes (Bld) [#/Vol] 1.9 10*3/uL Normal 1.2-4.0 [facility] Comment on above: Order Comment: No: D o not add to previous draw Performed By: #### 5 0103 #### [facility] [address] [place] [address], [facility] Lymphocytes/100 WBC (Bld) 30.1 % Normal 20.0-45.0 [facility] Comment on above: Order Comment: No: D o not add to previous draw Performed By: #### 5 0103 #### [facility] [address] [place] [address], [facility] MCH (RBC) [Entitic mass] 30.0 pg Normal 27.0-33.0 [facility] Comment on above: Order Comment: No: D o not add to previous draw Performed By: #### 5 0103 #### [facility] [address] [place] [address], [facility] MCHC (RBC) [Mass/Vol] 32.7 g/dL Normal 32.0-35.0 [facility] Comment on above: Order Comment: No: D o not add to previous draw Performed By: #### 5 0103 #### [facility] [address] [place] [address], [facility] MCV (RBC) [Entitic vol] 91.5 fL Normal 82.0-98.0 [facility] Comment on above: Order Comment: No: D o not add to previous draw Performed By: #### 5 0103 #### [facility] [address] [place] [address], [facility] Monocytes (Bld) [#/Vol] 0.7 10*3/uL Normal 0.1-1.0 [facility] Comment on above: Order Comment: No: D o not add to previous draw Performed By: #### 5 0103 #### [facility] [address] [place] [address], [place] MONOS 10.7 % Normal 5.0-12.0 [facility] Comment on above: Order Comment: No: D o not add to previous draw Performed By: #### 5 0103 #### [facility] [address] [place] [address], [place] Neutrophils/100 WBC (Bld) 54.2 % Normal 40.0-72.0 [facility] Comment on above: Order Comment: No: D o not add to previous draw Performed By: #### 5 0103 #### [facility] [address] [place] [address], [place] Nucleated RBC/100 WBC (Bld) [Ratio] 0 % Normal 0-0 [facility] Comment on above: Order Comment: No: D o not add to previous draw Performed By: #### 5 0103 #### [facility] [address] [place] [address], [place] PLAT CNT 164 10*3/uL Normal 150-400 [facility] Comment on above: Order Comment: No: D o not add to previous draw Performed By: #### 5 0103 #### [facility] [address] [place] [address], [place] RBC (Bld) [#/Vol] 4.34 10*6/uL Normal 4.20-5.70 [facility] Comment on above: Order Comment: No: D o not add to previous draw Performed By: #### 5 0103 #### [facility] [address] [place] [address], [place] WBC (Bld) [#/Vol] 6.38 10*3/uL Normal 4.00-10.60 [facility] Comment on above: Order Comment: No: D o not add to previous draw Performed By: #### 5 0103 #### [facility] [address] MAGNESIUM BLOODon 10-15-2018 Magnesium [Mass/Vol] 2.0 mg/dL Normal 1.9-2.7 [facility] Comment on above: Order Comment: No: D o not add to previous draw Performed By: #### 1 0070, [id number] #### [facility] [address] [facility]. [address] PROTHROMBIN TIMEon 9 INR Coag (PPP) [Relative time] 1.11 {INR} Normal 0.91-1.16 [facility] Comment on above: Order Comment: No: [...] 1995;108:231S-246S. Performed By: #### 5 6101 #### [facility] [address] [facility]. [address] PT Coag (PPP) [Time] 14.3 s Normal 12.3-14.8 [facility] Comment on above: Order Comment: No: D o not add to previous draw Result Comment: ALL RESULTS MUST BE INTERPRETED WITH RESPECT TO BLOOD DRAWING ARTIFACT OR DILUTION ERROR OF ANTICOAGULANT AT THE TIME OF SAMPLING. Performed By: #### 5 6101 #### [facility] [address] [place] [address], [facility] POC GLUCOSE LABon 10-14-2018 Glucose [Mass/Vol] 180 mg/dL High 70-100 [facility] Comment on above: Performed By: #### 8 5499 #### [facility] [address] [place] [address], [facility] Cardiovascular Lab Reporton 02-25-2018 Cardiovascular Lab Report [facility] Patient Name: Lani [facility] MR #: [id number] Physician: Pinky Bishop Department of M.D. Medicine Service Date: 02/24/2018 Division of Birthdate: 1950 Cardiology Room #: [id number] Adult Cardiovascular Services [facility] [address] [facility] [address] [place] [address] Cardiovascular Laboratory Report FINAL IMPRESSIONS: 1. 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 2. Severe 3-vessel inupiat coronary artery disease. 3. 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 4. Vvdlvnal-hi-udspvz systemic hypertension. RECOMMENDATIONS: 1. Aspirin 81 mg lifelong. 2. Plavix 75 mg daily for a minimum of 6 months, preferably engagement mgr. 3. Aggressive cardiovascular risk factor modification. 4. Optimization of medical management; high intensity statin therapy as tolerated, we will switch his Toprol-XL to Coreg 25 mg p.o. b.i.d., and angiotensin-converting enzyme inhibitor. 5. Follow up with me in the [facility] in the next 2-3 weeks. 6. Follow up with Dr. Crespo as scheduled. PROCEDURES: Limited femoral angiography, bilateral selective coronary angiography, saphenous vein graft angiography, angiography of the left internal mammary artery graft, limited angiography of the left subclavian, percutaneous balloon angioplasty, and Synergy drug-eluting stent placement to the saphenous vein graft to the obtuse marginal, placement of a 6-Kenyan MYNXGRIP closure device. METHODS: After risks, benefits, and alternatives were explained, written informed consent was obtained. The patient was prepped and draped in usual sterile fashion over both groins. Using 1% lidocaine solution, local infiltration anesthesia was achieved over the right groin. Using a micropuncture kit, access of the right common femoral artery was obtained. A 6-Kenyan 11 cm sheath was exchanged then without [...] to proceed with an interventional procedure. A 6-Kenyan JR4 guide catheter was advanced in and [...] the procedure. All catheters were removed. A 6-Kenyan MYNXGRIP closure device was deployed per protocol [...] is a 30% touchdown stenosis of the inupiat vessel. There is evidence of [id number] collaterals supplying the distal right coronary artery. Limited femoral angiography, this shows mild plaque and anatomy suitable for closure device. INDICATIONS: Unstable angina. Electronically Signed by: Pinky Bishop M.D. 03/06/2018 12:15 P Pinky Bishop M.D. Date Dict: 02/24/2018/01:39 P/Pinky Bishop M.D. Date Trans: 02/25/2018 02:12 Brandie [id number] cc: Harley Crespo D.O. [address] [place] [id number] [facility] POC GLUCOSE LABon 11-27-2018 Glucose [Mass/Vol] 150 mg/dL High 70-100 [facility] Comment on above: Performed By: #### [id number] #### [facility] [address] [place] [address], [facility] POC GLUCOSE LABon 02-24-2018 Glucose [Mass/Vol] 192 mg/dL High 70-100 [facility] Comment on above: Performed By: #### [id number] #### [facility] [address] [place] [address], [place] Glucose [Mass/Vol] 186 mg/dL High 70-100 [facility] Comment on above: Performed By: #### [id number] #### [facility] [address] [place] [address], [facility] Vital Signs Date Time Vital Sign Value Performing Clinician Facility 05-03-2023 09:30-0500 Body height 170.18 cm DO Harley Ball Work Phone: [facility] 05-03-2023 09:30-0500 Body weight 77.29 kg DO Harley Ball Work Phone: [facility] 05-03-2023 09:30-0500 Diastolic blood pressure 85 mm[Hg] DO Harley Ball Work Phone: [facility] 05-03-2023 09:30-0500 Systolic blood pressure 126 mm[Hg] DO Harley Ball Work Phone: [facility] 03-12-2023 11:15-0500 Body height 170.18 cm Tondra Mapus Other [facility] 03-12-2023 11:15-0500 Body mass index (BMI) [Ratio] 27.03 kg/m2 Tondra Mapus Other [facility] [employer] Other 03-12-2023 11:15-0500 Body weight 78.29 kg Tondra Mapus Other [facility] 03-12-2023 11:15-0500 Diastolic blood pressure 79 mm[Hg] Tondra Mapus Other [facility] 03-12-2023 11:15-0500 Respiratory rate 18 /min Tondra Mapus Other [facility] [employer] Other 03-12-2023 11:15-0500 SaO2% (BldA) [Mass fraction] 98 % Tondra Mapus Other [facility] [employer] Other 03-12-2023 11:15-0500 Systolic blood pressure 128 mm[Hg] Tondra Mapus Other [facility] 01-07-2023 10:00-0400 Body height 170.18 cm Kingsley Latisha Other [facility] [employer] Other 01-07-2023 10:00-0400 Body mass index (BMI) [Ratio] 27 kg/m2 Kingsley Latisha Other [facility] [employer] Other 01-07-2023 10:00-0400 Body temperature 97.7 [degF] Kingsley Latisha Other [facility] [employer] Other 01-07-2023 10:00-0400 Body weight 78.2 kg Kingsley Latisha Other [facility] [employer] Other 01-07-2023 10:00-0400 Diastolic blood pressure 73 mm[Hg] Kingsley Latisha Other [employer] Other 01-07-2023 10:00-0400 Respiratory rate 16 /min Kingsley Latisha Other [employer] Other 01-07-2023 10:00-0400 SaO2% (BldA) [Mass fraction] 98 % Kingsley Latisha Other [facility] [employer] Other 01-07-2023 10:00-0400 Systolic blood pressure 108 mm[Hg] Ikngsley Latisha Other [employer] Other 12-31-2022 09:30-0400 Body height 170.18 cm Harley Ball Other [facility] [employer] Other 12-31-2022 09:30-0400 Body mass index (BMI) [Ratio] 27.03 kg/m2 Harley Ball Other [employer] Other 12-31-2022 09:30-0400 Body weight 78.29 kg Harley Ball Other [employer] Other 12-31-2022 09:30-0400 Diastolic blood pressure 69 mm[Hg] Harley Ball Other [employer] Other 12-31-2022 09:30-0400 Respiratory rate 16 /min Harley Ball Other [employer] Other 12-31-2022 09:30-0400 Systolic blood pressure 102 mm[Hg] Harley Ball Other [employer] Other 08-31-2022 08:45-0400 Body height 170.18 cm Harley Ball Other [facility] [employer] Other 08-31-2022 08:45-0400 Body mass index (BMI) [Ratio] 26.72 kg/m2 Harley Ball Other [employer] Other 08-31-2022 08:45-0400 Body weight 77.38 kg Harley Ball Other [employer] Other 08-31-2022 08:45-0400 Diastolic blood pressure 69 mm[Hg] Harley Ball Other [employer] Other 08-31-2022 08:45-0400 Respiratory rate 12 /min Harley Ball Other [employer] Other 08-31-2022 08:45-0400 Systolic blood pressure 102 mm[Hg] Harley Ball Other [employer] Other 07-02-2022 10:40-0400 Body height 170.18 cm Kingsley Latisha Other [employer] Other 07-02-2022 10:40-0400 Body mass index (BMI) [Ratio] 27.69 kg/m2 Kingsley Latisha Other [employer] Other 07-02-2022 10:40-0400 Body temperature 96.4 [degF] Kingsley Latisha Other [employer] Other 07-02-2022 10:40-0400 Body weight 80.2 kg Kingsley Latisha Other [employer] Other 07-02-2022 10:40-0400 Diastolic blood pressure 71 mm[Hg] Kingsley Latisha Other [employer] Other 07-02-2022 10:40-0400 Respiratory rate 16 /min Kingsley Latisha Other [employer] Other 07-02-2022 10:40-0400 SaO2% (BldA) [Mass fraction] 97 % Kingsley Latisha Other [employer] Other 07-02-2022 10:40-0400 Systolic blood pressure 115 mm[Hg] Kingsley Good Other [employer] Other 06-28-2022 09:30-0400 Body height 170.18 cm Harley Ball Other [employer] Other 06-28-2022 09:30-0400 Body mass index (BMI) [Ratio] 27.16 kg/m2 Harley Ball Other [employer] Other 06-28-2022 09:30-0400 Body weight 78.65 kg Harley Ball Other [employer] Other 06-28-2022 09:30-0400 Diastolic blood pressure 66 mm[Hg] Harley Ball Other [employer] Other 06-28-2022 09:30-0400 Respiratory rate 12 /min Harley Ball Other [employer] Other 06-28-2022 09:30-0400 Systolic blood pressure 115 mm[Hg] Harley Ball Other [employer] Other 06-26-2022 08:45-0400 Body height 170.18 cm Tondra Mapus Other [employer] Other 06-26-2022 08:45-0400 Body mass index (BMI) [Ratio] 27.75 kg/m2 Tondra Mapus Other [employer] Other 06-26-2022 08:45-0400 Body weight 80.38 kg Tondra Mapus Other [employer] Other 06-26-2022 08:45-0400 Diastolic blood pressure 61 mm[Hg] Tondra Mapus Other [employer] Other 06-26-2022 08:45-0400 Respiratory rate 16 /min Tondra Mapus Other [employer] Other 06-26-2022 08:45-0400 SaO2% (BldA) [Mass fraction] 96 % Tondra Mapus Other [employer] Other 06-26-2022 08:45-0400 Systolic blood pressure 105 mm[Hg] Tondra Mapus Other [employer] Other 03-20-2022 09:15-0500 Body height 170.18 cm Tondra Mapus Other [employer] Other 03-20-2022 09:15-0500 Body mass index (BMI) [Ratio] 26.15 kg/m2 Tondra Mapus Other [employer] Other 03-20-2022 09:15-0500 Body weight 75.75 kg Tondra Mapus Other [employer] Other 03-20-2022 09:15-0500 Diastolic blood pressure 57 mm[Hg] Tondra Mapus Other [employer] Other 03-20-2022 09:15-0500 Respiratory rate 16 /min Tondra Mapus Other [employer] Other 03-20-2022 09:15-0500 SaO2% (BldA) [Mass fraction] 98 % Tondra Mapus Other [employer] Other 03-20-2022 09:15-0500 Systolic blood pressure 117 mm[Hg] Tondra Desireeus Other [employer] Other 01-17-2022 11:45-0400 Body height 170.18 cm DO Harley Ball Work Phone: [facility] 01-17-2022 11:22-0400 Diastolic blood pressure 68 mm[Hg] DO Harley Ball Work Phone: [facility] 01-17-2022 11:22-0400 Heart rate 60 /min DO Harley Ball Work Phone: [facility] 01-17-2022 11:22-0400 Systolic blood pressure 118 mm[Hg] DO Harely Ball Work Phone: [facility] 01-17-2022 11:05-0400 Body temperature 97.4 [degF] DO Harley Ball Work Phone: [facility] 01-17-2022 11:05-0400 Respiratory rate 18 /min DO Harley Ball Work Phone: [facility] 01-17-2022 11:05-0400 SaO2% (BldA) [Mass fraction] 95 % DO Harley Ball Work Phone: [facility] 01-17-2022 06:58-0400 Body weight 77.9 kg DO Harley Ball Work Phone: [facility] 01-15-2022 15:23-0400 Inhaled oxygen flow rate 2 L/min DO Harley Ball Work Phone: [facility] 12-18-2021 09:45-0400 Body height 170.18 cm Tondra Desireeus Other [employer] Other 12-18-2021 09:45-0400 Body mass index (BMI) [Ratio] 27.25 kg/m2 Tondra Mapus Other [employer] Other 12-18-2021 09:45-0400 Body weight 78.93 kg Tondra Mapus Other [employer] Other 12-18-2021 09:45-0400 Diastolic blood pressure 65 mm[Hg] Tondra Mapus Other [employer] Other 12-18-2021 09:45-0400 Respiratory rate 16 /min Tondra Mapus Other [employer] Other 12-18-2021 09:45-0400 SaO2% (BldA) [Mass fraction] 97 % Tondra Mapus Other [employer] Other 12-18-2021 09:45-0400 Systolic blood pressure 133 mm[Hg] Tondra Mapus Other [employer] Other 09-29-2021 13:13-0400 Blood Pressure Location Gagan MORGANL [facility] [place] 09-29-2021 13:13-0400 Diastolic blood pressure 74 mm[Hg] Gagan NILL [facility] [place] 09-29-2021 13:13-0400 Heart rate 60 /min Gagan NILL [facility] 09-29-2021 13:13-0400 Respiratory rate 16 /min Gagan NILL [facility] 09-29-2021 13:13-0400 Systolic blood pressure 138 mm[Hg] Gagan NILL [facility] 07-17-2021 09:45-0400 Body height 170.18 cm Tondra Mapus Other [employer] Other 07-17-2021 09:45-0400 Body mass index (BMI) [Ratio] 30.69 kg/m2 Tondra Mapus Other [employer] Other 07-17-2021 09:45-0400 Body weight 88.91 kg Tondra Mapus Other [employer] Other 07-17-2021 09:45-0400 Diastolic blood pressure 73 mm[Hg] Tondra Mapus Other [employer] Other 07-17-2021 09:45-0400 Respiratory rate 16 /min Tondra Mapus Other [employer] Other 07-17-2021 09:45-0400 SaO2% (BldA) [Mass fraction] 97 % Tondra Mapus Other [employer] Other 07-17-2021 09:45-0400 Systolic blood pressure 163 mm[Hg] Tondra Mapus Other [employer] Other 06-06-2021 10:20-0500 Body height 170.18 cm Kingsley Latisha Other [employer] Other 06-06-2021 10:20-0500 Body mass index (BMI) [Ratio] 30.29 kg/m2 Kingsley Latisha Other [employer] Other 06-06-2021 10:20-0500 Body temperature 96.1 [degF] Kingsley Latisha Other [employer] Other 06-06-2021 10:20-0500 Body weight 87.73 kg Kingsley Latisha Other [employer] Other 06-06-2021 10:20-0500 Diastolic blood pressure 70 mm[Hg] Kingsley Latisha Other [employer] Other 06-06-2021 10:20-0500 Respiratory rate 18 /min Kingsley Latisha Other [employer] Other 06-06-2021 10:20-0500 SaO2% (BldA) [Mass fraction] 97 % Kingsley Latisha Other [employer] Other 06-06-2021 10:20-0500 Systolic blood pressure 160 mm[Hg] Kingsley Latisha Other [employer] Other 04-10-2021 09:15-0500 Body height 170.18 cm Tondra Mapus Other [employer] Other 04-10-2021 09:15-0500 Body mass index (BMI) [Ratio] 30.99 kg/m2 Tondra Mapus Other [employer] Other 04-10-2021 09:15-0500 Body weight 89.77 kg Tondra Mapus Other [employer] Other 04-10-2021 09:15-0500 Diastolic blood pressure 64 mm[Hg] Tondra Mapus Other [employer] Other 04-10-2021 09:15-0500 Respiratory rate 18 /min Tondra Mapus Other [employer] Other 04-10-2021 09:15-0500 SaO2% (BldA) [Mass fraction] 98 % Tondra Mapus Other [employer] Other 04-10-2021 09:15-0500 Systolic blood pressure 136 mm[Hg] Tondra Mapus Other [employer] Other 02-14-2021 10:00-0500 Body height 170.18 cm Kingsley Latisha Other [employer] Other 02-14-2021 10:00-0500 Body mass index (BMI) [Ratio] 30.98 kg/m2 Kingsley Latisha Other [employer] Other 02-14-2021 10:00-0500 Body temperature 96 [degF] Kingsley Latisha Other [employer] Other 02-14-2021 10:00-0500 Body weight 89.72 kg Kingsley Latisha Other [employer] Other 02-14-2021 10:00-0500 Diastolic blood pressure 60 mm[Hg] Kingsley Latisha Other [employer] Other 02-14-2021 10:00-0500 Respiratory rate 16 /min Kingsley Latisha Other [employer] Other 02-14-2021 10:00-0500 SaO2% (BldA) [Mass fraction] 97 % Kingsley Latisha Other [employer] Other 02-14-2021 10:00-0500 Systolic blood pressure 130 mm[Hg] Kingsley Latisha Other [employer] Other 01-03-2021 10:15-0400 Body height 170.18 cm Tondra Mapus Other [employer] Other 01-03-2021 10:15-0400 Body mass index (BMI) [Ratio] 31.01 kg/m2 Tondra Mapus Other [employer] Other 01-03-2021 10:15-0400 Body weight 89.81 kg Tondra Mapus Other [employer] Other 01-03-2021 10:15-0400 Diastolic blood pressure 67 mm[Hg] Tondra Mapus Other [employer] Other 01-03-2021 10:15-0400 Respiratory rate 16 /min Tondra Mapus Other [employer] Other 01-03-2021 10:15-0400 SaO2% (BldA) [Mass fraction] 99 % Tondra Mapus Other [employer] Other 01-03-2021 10:15-0400 Systolic blood pressure 151 mm[Hg] Tondra Mapus Other [employer] Other Encounters Encounter Date Encounter Type Care Provider Facility Start: 05-07-2023 End: 05-07-2023 [facility] Start: 05-03-2023 End: 05-03-2023 Patient encounter procedure DO Harley Crespo Work Phone: [facility] Start: 04-30-2023 Telephone encounter Noelle OAKLEY [facility] Start: 04-30-2023 End: 04-30-2023 ambulatory LAILA [facility] [email or web address] Other Start: 04-23-2023 End: 04-23-2023 ambulatory Viky Kwong Other [facility] Other Start: 04-23-2023 Telephone encounter Viky Kwong [facility] Start: 03-18-2023 End: 03-18-2023 ambulatory [facility] Start: 03-12-2023 (DM) Diabetes Viky Kwong [facility] Start: 03-12-2023 End: 03-13-2023 ambulatory DO Harley Crespo Work Phone: [facility] [employer] Other Start: 03-12-2023 End: 03-12-2023 Discharged Recurring DO Harley Cherie Work Phone: [facility] Work Phone: Start: 03-12-2023 End: 03-12-2023 Patient encounter procedure DO Harley Cherie Work Phone: [facility] Work Phone: Start: 03-07-2023 End: 03-07-2023 ambulatory AB [facility] Start: 03-05-2023 End: 03-05-2023 ambulatory [facility] Start: 02-19-2023 End: 02-19-2023 [facility] Start: 02-12-2023 Telephone encounter Harley HERRMANN [facility] Start: 02-12-2023 End: 02-12-2023 ambulatory [facility] [email or web address] Other Start: 02-07-2023 End: 02-07-2023 ambulatory Harley Crespo Other [employer] Other Start: 02-07-2023 Telephone encounter Harley HERRMANN [facility] Start: 02-06-2023 End: 02-06-2023 ambulatory Viky Kwong Other [employer] Other Start: 02-06-2023 Telephone encounter Viky Shane [facility] Start: 02-01-2023 End: 02-01-2023 ambulatory LAILA [facility] Start: 01-29-2023 End: 01-29-2023 ambulatory Harley Crespo Other [employer] Other Start: 01-29-2023 Telephone encounter Harley HERRMANN [facility] Start: 01-25-2023 End: 01-28-2023 Evaluation and management of inpatient DELTA [facility] Start: 01-17-2023 Telephone encounter Viky Shane [facility] Start: 01-17-2023 End: 01-17-2023 ambulatory EHAB [facility] [email or web address] Other Start: 01-07-2023 End: 01-07-2023 ambulatory Harley Crespo Other [employer] Other Start: 01-07-2023 Office outpatient visit 25 minutes Kingsley Latisha [facility] Start: 01-07-2023 Telephone encounter Harley Garcia [facility] Start: 01-04-2023 End: 01-04-2023 ambulatory Kingsley Latisha Other [employer] Other Start: 01-04-2023 Telephone encounter Kingsley Latisha [facility] Start: 01-01-2023 End: 01-01-2023 ambulatory Kingsley Latisha Other [employer] Other Start: 01-01-2023 Telephone encounter Kingsley Latisha [facility] Start: 12-31-2022 End: 12-31-2022 ambulatory Harley Crespo Other [employer] Other Start: 12-31-2022 Office outpatient visit 25 minutes Harley Crespo [facility] Start: 12-31-2022 Telephone encounter Harley HERRMANN [facility] Start: 12-13-2022 End: 12-13-2022 ambulatory Denita Chairez Other [employer] Other Start: 12-13-2022 Nursing evaluation o f patient and report Denita Chairez [facility] Start: 11-23-2022 End: 11-23-2022 ambulatory Tondra Mapus Other [employer] Other Start: 11-23-2022 Telephone encounter Tondra Mapus [facility] Start: 10-12-2022 End: 10-12-2022 ambulatory Tondra Mapus Other [employer] Other Start: 10-12-2022 Telephone encounter Tondra Mapus [facility] Start: 10-09-2022 Telephone encounter Harley HERRMANN [facility] Start: 10-09-2022 End: 10-09-2022 [facility] Other Start: 10-01-2022 End: 10-01-2022 ambulatory Harley Crespo Other [employer] Other Start: 10-01-2022 Telephone encounter Harley Crespo [facility] Start: 09-27-2022 End: 09-27-2022 ambulatory Kingsley Latisha Other [employer] Other Start: 09-27-2022 Telephone encounter Kingsley Latisha [facility] Start: 09-26-2022 End: 09-26-2022 ambulatory Harley Crespo Other [employer] Other Start: 09-26-2022 Telephone encounter Harley Crespo FP [facility] Start: 09-19-2022 End: 09-19-2022 ambulatory Kingsley Latisha Other [employer] Other Start: 09-19-2022 Telephone encounter Kingsley Latisha [facility] Start: 09-12-2022 End: 09-12-2022 ambulatory Harley Crespo Other [employer] Other Start: 09-12-2022 Telephone encounter Harley HERRMANN [facility] Start: 09-03-2022 End: 09-03-2022 ambulatory Harley Crespo Other [employer] Other Start: 09-03-2022 Telephone encounter Harley HERRMANN [facility] Start: 08-31-2022 End: 08-31-2022 ambulatory Harley Crespo Other [employer] Other Start: 08-31-2022 Office outpatient visit 25 minutes Harley Crespo [facility] Start: 08-10-2022 End: 08-10-2022 ambulatory Harley Crespo Other [employer] Other Start: 08-10-2022 Telephone encounter Harley HERRMANN [facility] Start: 08-09-2022 End: 08-10-[address] CRESPO [facility] [email or web address] Other Start: 08-09-2022 Telephone encounter Kingsley Latisha [facility] Start: 07-31-2022 End: 07-31-2022 ambulatory KEVIN ARTEAGA [facility] Start: 07-24-2022 End: 07-24-2022 [facility] Start: 07-02-2022 End: 07-02-2022 ambulatory Kingsley Latisha Other [employer] Other Start: 07-02-2022 Office outpatient visit 25 minutes Kingsley Latisha [facility] Start: 06-28-2022 End: 06-28-2022 ambulatory Harley Crespo Other [employer] Other Start: 06-28-2022 Patient encounter procedure Harley Crespo [facility] Start: 06-26-2022 (DM) Diabetes Tondra Mapus [facility] Start: 06-26-2022 End: 06-26-2022 ambulatory Tondra Mapus Other [employer] Other Start: 06-25-2022 End: 06-25-2022 ambulatory [facility] Start: 06-25-2022 End: 06-26-2022 ambulatory KINGSLEY LATISHA Facility:[facility] Start: 06-18-2022 End: 06-19-2022 ambulatory TONDRA MAPUS Facility:[facility] Start: 06-05-2022 End: 06-06-[address] HARLEY CRESPO Facility:[facility] Start: 05-29-2022 End: 05-29-2022 ambulatory [facility] Start: 05-26-2022 End: 05-26-2022 ambulatory Harley Crespo Other [employer] Other Start: 05-26-2022 Telephone encounter Harley Crsepo [facility] Start: 05-25-2022 End: 05-25-2022 ambulatory Tondra Mapus Other [employer] Other Start: 05-25-2022 Telephone encounter Tona Varghese [facility] Start: 05-03-2022 End: 05-04-[address] PINKY BISHOP Facility:[facility] Start: 04-18-2022 End: 04-19-[address] PINKY BISHOP Facility:[facility] Start: 03-22-2022 End: 03-23-[address] HIGINIO FLANAGAN Facility:[facility] Start: 03-20-2022 (DM) Diabetes Tondra Mapus [facility] Start: 03-20-2022 End: 03-20-2022 ambulatory Tondra Mapus Other [employer] Other Start: 03-12-2022 End: 03-13-2022 Evaluation and management of inpatient DR PARUL CHU Facility:[facility] Start: 03-09-2022 End: 03-10-[address] SHANNON LANDIS Facility:[facility] Start: 03-02-2022 End: 03-03-[address] HARLEY CRESPO Facility:[facility] Start: 02-19-2022 End: 02-19-2022 ambulatory Tondra Mapus Other [employer] Other Start: 02-19-2022 Telephone encounter Tondra Mapus [facility] Start: 02-08-2022 End: 02-08-2022 ambulatory Tondra Mapus Other [employer] Other Start: 02-08-2022 Telephone encounter Tondra Mapus [facility] Start: 01-15-2022 End: 01-17-2022 Evaluation and management of inpatient DO Harley Crespo Work Phone: [facility] Start: 01-15-2022 End: 01-15-[address] HARLEY CRESPO Facility:[facility] Start: 12-18-2021 Registered Recurring DO Zamudio in [place] Work Phone: [facility] Start: 12-18-2021 (DM) Diabetes Tondra Mapus [facility] Start: 12-18-2021 End: 12-18-2021 ambulatory Tondra Mapus Other [employer] Other Start: 12-08-2021 End: 12-09-[address] HARLEY CRESPO Facility:[facility] Start: 11-30-2021 End: 12-01-2021 ambulatory KINGSLEY GOOD Facility:[facility] Start: 11-24-2021 End: 11-25-[address] HARLEY CRESPO Facility:[facility] Start: 11-16-2021 End: 11-16-2021 ambulatory Tondra Mapus Other [employer] Other Start: 11-16-2021 Telephone encounter Tondra Mapus [facility] Start: 2021 End: 2021 ambulatory Tondra Mapus Other [employer] Other Start: 2021 Telephone encounter Tondra Mapus [facility] Start: 10-31-2021 End: 10-31-2021 ambulatory Tondra Mapus Other [employer] Other Start: 10-31-2021 Telephone encounter Tondra Mapus [facility] Start: 10-27-2021 End: 10-27-[address] [...] 07-24-2021 End: 07-24-2021 ambulatory Tondra Mapus Other [employer] Other Start: 07-24-2021 Telephone encounter Tondra Mapus [facility] Start: 07-17-2021 (DM) Diabetes Tondra Mapus [facility] Start: 07-17-2021 End: 07-17-2021 ambulatory Tondra Mapus Other [employer] Other Start: 06-19-2021 End: 06-19-2021 ambulatory Shannon Escobar Other [employer] Other Start: 06-19-2021 Telephone encounter Shannon Escobar [facility] Start: 06-06-2021 End: 06-06-2021 ambulatory Kingsley Latisha Other [employer] Other Start: 06-06-2021 Office outpatient visit 25 minutes Kingsley Latisha [facility] Start: 05-22-2021 End: 05-22-2021 ambulatory Tondra Mapus Other [employer] Other Start: 05-22-2021 Telephone encounter Tondra Mapus [facility] Start: 05-16-2021 End: 05-16-2021 ambulatory Tondra Mapus Other [employer] Other Start: 05-16-2021 Telephone encounter Tondra Mapus [facility] Start: 04-10-2021 (DM) Diabetes Tondra Mapus [facility] Start: 04-10-2021 End: 04-10-2021 ambulatory Tondra Mapus Other [employer] Other Start: 04-10-2021 Telephone encounter Tondra Mapus [facility] Start: 02-14-2021 End: 02-14-2021 ambulatory Kingsley Latisha Other [employer] Other Start: 02-14-2021 Patient encounter procedure Kingsley Latisha [facility] Start: 02-14-2021 Telephone encounter Tondra Mapus [facility] Start: 01-03-2021 (DM) Diabetes Viky Kwong [facility] Start: 10-14-2018 End: 10-15-2018 Patient encounter procedure PINKY BISHOP Facility:[facility] Start: 02-24-2018 End: 02-25-2018 Evaluation and management of inpatient [facility] Nakul BISHOP Facility:[facility] Procedures Date Procedure Procedure Detail Performing Clinician [...] Author Start: 10-26-2023 DIABETES SCREEN DIABETES SCREEN [facility] Start: 01-17-2022 [facility] Start: 01-17-2022 Radionuclide myocard ial perfusion stress study NM rachel perf SPECT rest & str [facility] Start: 01-17-2022 Referral to cardiac rehabilitation program [facility] Start: 01-16-2022 Hospital admission [facility] Start: 01-15-2022 Hospital admission [facility] Start: 11-30-2021 Influenza vaccination INFLUENZA (#1) [facility] Start: 10-24-2021 End: 12-24-2021 CBC W Auto Differential panel - Blood CBC + DIFF Lab Routine Monoclonal gammopathy Expected: 10/24/2021, Expires: 12/24/2021 [facility] Work Phone: Comment on above: Expected: 10/24/2021 , Expires: 12/24/2021 Start: 04-25-2021 Adult depression screening assessment DEPRESSION SCREENING [facility] Start: 04-01-2021 ADVANCE DIRECTIVE DISCUSSION ADVANCE DIRECTIVE DISCUSSION [facility] Start: 11-21-2020 COVID-19 VACCINE (3 - Booster for Pfizer series) COVID-19 VACCINE (3 - Booster for Pfizer series) [facility] Start: 11-07-2001 SHINGRIX VACCINE (1 of 2) SHINGRIX VACCINE (1 of 2) [facility] Start: 11-07-1996 COLOGUARD (FIT-DNA) COLOGUARD (FIT-D NA) [facility] Start: 11-07-1996 Colonoscopy COLONOSCOPY [facility] Start: 11-07-1996 COLORECTAL CANCER SCREENING COLORECTAL CANCER SCREENING [facility] Start: 11-07-[address] COLONOGRAPHY [facility] Start: 11-07-1996 FECAL OCCULT BLOOD FECAL OCCULT BLOO D [facility] Start: 11-07-1996 SIGMOIDOSCOPY SIGMOIDOSCOPY [facility] Start: 11-07-1986 LIPID SCREEN LIPID SCREEN [facility] Start: 11-07-1970 Urine microalbumin profile DTAP,TDAP,TD (1 - Tdap) [facility] Start: 11-07-1969 HEPATITIS C SCREENING HEPATITIS C SC REENING [facility] Start: 1950 ABDOMINAL AORTIC ANEURYSM SCREENING ABDOMINAL AORTIC ANEURYSM SCREENING [facility] Patient referral [facility] Work Phone: Immunizations Immunization Date Immunization Notes Care Provider Poli patel 12-13-2022 influenza, high dose seasonal, preservative-free Denita Chairez Other [facility] [employer] Other 12-13-2022 influenza virus vaccine, unspecified formulation DO [employer] Work Phone: [facility] 12-15-2021 influenza virus vaccine, unspecified formulation DO [employer] Work Phone: [facility] 12-15-2021 influenza, high dose seasonal, preservative-free [employer] Other [facility] [employer] Other 02-21-2021 COVID-19 mRNA, Comirnaty (Pfizer) DO [employer] Work Phone: [facility] 06-21-2020 COVID-19 Vaccine Pfi zer - Documentation Purposes Only Viky Kwong Other [facility] 05-30-2020 COVID-19 Vaccine Pfi zer - Documentation Purposes Only Tondra Mapus Other [facility] 01-17-2018 pneumococcal polysaccharide vaccine, 23 valent Abdon Walker MD Work Phone: [facility] 01-17-2018 Seasonal trivalent influenza vaccine, adjuvanted, preservative free Abdon Walker MD Work Phone: [facility] 01-16-2017 influenza, high dose seasonal, preservative-free Abdon Walker MD Work Phone: [facility] 11-30-2016 influenza, injectabl e, quadrivalent, preservative free Abdon Walker MD Work Phone: [facility] 11-14-2016 pneumococcal conjuga te vaccine, 13 valent Abdon Walker MD Work Phone: [facility] 04-02-2016 pneumococcal polysaccharide vaccine, 23 valent Tondra Ramírezus Other [facility] 01-23-2012 influenza, seasonal, injectable Abdon Walker MD Work Phone: [facility] 12-13-2010 influenza, seasonal, injectable Abdon Walker MD Work Phone: [facility] 01-27-2009 novel [id number], preservative-free, injectable Abdon Walker MD Work Phone: [facility] 01-19-2008 influenza virus vaccine, whole virus Abdon Walker MD Work Phone: [facility] Payers Date Payer Category Payer Unknown MMO MMO MEDICARE SUPPLEMENT [id number] 2019-Present [phone] [address] [place] [address] Indemnity [id number] 2017 Self-pay [id number] 2017 Unknown [id number] 2017 Unknown [id number] 2016 Medicare MEDICARE MEDICAR E A AND B [id number] 2016-Present [phone] [address] [address] [place] [address] Medicare [id number] 1959 Medicare [id number] 1959 Unknown [id number] 1950 Unknown [id number] 2.16.840.1.591844.3.579.2.647 1950 Unknown [id number] 2.16.840.1.422522.3.579.2.647 1950 Unknown [id number] 2.16.840.1.749780.3.579.2.593 1950 Unknown [id number] 2.16.840.1.013025.3.579.2.593 1951 Unknown [id number] 2.16.840.1.696802.3.579.2.593 1951 Unknown [id number] 2.16.840.1.748557.3.579.2.593 1950 Unknown [id number] 2.16.840.1.788174.3.579.2.593 1950 Unknown [id number] 2.16.840.1.134335.3.579.2.593 1950 Unknown [id number] 2.16.840.1.998231.3.579.2.593 1951 Unknown [id number] 2.16.840.1.326100.3.579.2.593 1951 Unknown [id number] 2.16.840.1.218973.3.579.2.593 1951 Unknown [id number] 2.16.840.1.006298.3.579.2.593 1951 Unknown [id number] 2.16.840.1.597423.3.579.2.593 1951 Unknown [id number] 2.16.840.1.677954.3.579.2.593 1951 Unknown [id number] 2.16.840.1.081380.3.579.2.593 1951 Unknown [id number] 2.16.840.1.628725.3.579.2.593 1951 Unknown [id number] 2.16.840.1.404246.3.579.2.593 1951 Unknown [id number] 2.16.840.1.397087.3.579.2.593 1950 Unknown [id number] 2.16.840.1.062123.3.579.2.593 1950 Unknown [id number] 2.16.840.1.340440.3.579.2.593 Unknown [id number] Unknown [id number] 2.16.840.1.679754.3.579.2.531 Social History Date Type Detail Facility Unknown if ever smoked [employer] Other Sex Assigned At [employer] Other Start: 09-29-2021 End: 01-16-2022 Tobacco smoking status Ex-smoker (finding) [facility] Tobacco smoking status Never General Surgery [facility] Start: 07-23-2018 Tobacco use and exposure Smokeless tobacco non-user [facility] Start: 10-25-2020 Alcohol intake Ex-drinker (finding) [facility] Start: 1950 Sex Assigned At Not on file [facility] Start: 1950 Sex Assigned At Male [facility] Medical Equipment Procedure Code Equipment Code Equipment Origin al Text Equipment Identifier Dates Start: 10-31-2016 CL STENT DC 2. 0 X 15 FDA Start: 07-12-2020 CL STENT DC 2. 0 X 15 FDA Start: 07-12-2020 Goals Date Patient Goal Desired Activity /State Functional Status Date Assessment Result Facility 01-17-2022 Functional status Patient at Baseline [facility] Work Phone: 09-29-2021 Functional Status N/A General Saha ranjeet Dudley Mental Status Date Assessment Result Facility 01-17-2022 Cognitive function Cognitive Sta tus Patient at Baseline [facility] Work Phone: Clinical Notes 01-03-2021 to 05-07-2023 Note Date & Type Note Facility 05-07-2023 Note [facility] Consul t Note Reason for visit: Complete heart block on event monitor, HFrEF 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%, atrial tachycardia 05/07/23 Patient is s/p BiV ICD. 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 patient has got good device threshold. he is noted to have sinus rate going anywhere from 90 to 110 bpm. 04/30/23: Here for follow up regarding tachycardia Device check follow up scheduled for next week His HR is 90-100sbpm It is difficult to say if he is still having a 2-1 atrial rate without device cehck TTE 04/16/23 shows LVEF 15-20% 03/18/23 Here for follow-up regarding tachycardia device [...] and hypertension. He was recently admitted to [facility] for [place]. Had inpatient stress test and heart cath. Denies SOB but still having chest pain and has taken nitroglycerin a few times for relief. Had CT chest last week s/p discharge. Cardiac catheterization revealed patent bypass grafts and worsening inupiat vessel disease. Medications were adjusted. I had [...] Determinants of Health Tobacco Use: Medium Risk (04/30/2023) Patient History Smoking Tobacco Use: Former Smokeless [...] file Intimate Partner Violence: Not on file (01/25/2023) Depression: Not on file Housing Stability: Unknown (01/25/2023) Housing Stability Vital Sign Unable to Pay for Housing in the Last Year: Not on file Number of Places Lived in the Last Year: Not on file Unstable Housing in the Last Year: No Utilities: Not on file Allergies: No Known Allergies Weight: No results found for: PTWEIGHT Meds: Current Outpatient Medications on File Prior to Visit Medication Sig Dispense Refill ALPRAZolam (Xanax) 0.5 mg tablet Take 1 tablet by mouth in the morning, afternoon, and at bedtime. aspirin 81 mg chewable tablet Chew 1 tablet every day by oral route. bumetanide (Bumex) 0.5 mg tablet TAKE 1 TABLET (0.5 MG) BY MOUTH IN THE MORNING (Patient taking differently: Take 0.5 mg by mouth if needed.) 90 tablet 3 clopidogrel (Plavix) 75 mg ta (more content not included)... [facility] 04-30-2023 Evaluation note Encounter Date Diagnosis Assessment Notes Apr, Chronic HFrEF (heart failure with reduced ejection fraction) (ICD-10 - I50.22) [employer] Other 01-30-2024 NotePatient here for follow up echo. He is doing very well, as chest pain and palpitations have subsided. Taking bumex prn now and hasn't been swelling much. Denies SOB and lightheadedness. Review of Systems Musculoskeletal: Positive for arthritis, back pain, joint pain and myalgias. 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 He was recently admitted to [facility] [place]. Had inpatient stress test and heart cath. Denies SOB but still having chest pain and has taken nitroglycerin a few times for relief. Had CT chest last week s/p discharge. Cardiac catheterization revealed patent bypass grafts and worsening inupiat vessel disease. Medications were adjusted. I had [...] file Intimate Partner Violence: Not on file (01/25/2023) Depression: Not on file Housing Stability: Unknown (01/25/2023) Housing Stability Vital Sign Unable to Pay for Housing in the Last Year: Not on file Number of Places Lived in the Last Year: Not on file Unstable Housing in the Last Year: No Utilities: Not on file Allergies: No Known Allergies Weight: No results found for: PTWEIGHT Meds: Current Outpatient Medications on File Prior to Visit Medication Sig Dispense Refill ALPRAZolam (Xanax) 0.5 mg tablet Take 1 tablet by mouth in the morning, afternoon, and at bedtime. aspirin 81 mg chewable tablet Chew 1 tablet every day by oral route. bumetanide (Bumex) 0.5 mg tablet TAKE 1 TABLET (0.5 MG) BY MOUTH IN THE MORNING (Patient taking differently: Take 0.5 mg by mouth if needed.) 90 tablet 3 clopidogrel (Plavix) 75 mg tablet Take 1 tablet by mouth in the morning. docusate sodium (Colace) 100 mg capsule Take 100 mg by mouth in the morning. empagliflozin (Jardiance) 10 mg Take 1 tablet every day by oral route. insulin detemir (Levemi (more content not included)...[facility]12-18-2023 NotePatient here for 2 week follow up per Dr. Bishop. Metoprolol was increased to 100mg to decrease atrial tachycardia. Still gets random chest pain and palpitations. Lightheadedness has been better and has resolved. Denies SOB. Review of Systems Cardiovascular: Positive for chest pain and palpitations. Musculoskeletal: Positive for arthritis, back pain, joint pain and myalgias. All other systems reviewed and are negative.[facility] 03-18-2023 NoteUT Cardiology Consult Note Reason for visit: [...] lab Accompanied by Son 04/2022 HPI: Lani iLzama is a 72 y.o. year old with past medical history of CAD s/p CABG, PVD, DM2 and hypertension. He was recently admitted to [facility] for [place]STEM[facility]. Had inpatient stress test and heart cath. Denies SOB but still having chest pain and has taken nitroglycerin a few times for relief. Had CT chest last week s/p discharge. Cardiac catheterization revealed patent bypass grafts and worsening inupiat vessel disease. Medications were adjusted. I had [...] morning and at bedtim (more content not included)...[facility]12-12-2023 Evaluation note* Encounter Date Diagnosis Assessment Notes Treatment Notes Treatment Clinical Notes Mar, Dietary counseling and surveillance (ICD-10 - Z71.3) Eat a diet rich in fruits and vegetables material was printed Mar, Type 2 diabetes mellitus with diabetic chronic kidney disease (ICD-10 - E11.22) Type 2 diabetes material was printed 1. Controlled, a Type 2 diabetes with A1c of 7.1% for age/comorbidities 2. Blood glucose levels according to [employer] cgm download 02/27/2023- 023: Average glucose 134. Above 250-0%, >180- 9%, [...] PAP-Jardiance was denied, pt given information on [facility] diabetes discount program instructed to apply order sent for jardiance 10mg once daily 30 day 11 refills *; GUTIERREZ PAP-Novolog/tresib a/Ozempic approved through 03/31/24; 7. Prescriptions will not be filled unless you are compliant with follow up appointments or have a follow up appointment scheduled as ordered by your provider. Refills should be requested at the time of your visit. Mar, HTN (hypertension) (ICD-10 - I10) About hypertension material was printed on diony. Mar, USP current use of insulin (ICD-10 - Z79.4) Mar, Hyperlipidemia (ICD-10 - E78.5) High cholesterol material was printed 05/2022 ldl 69- on statin. Mar, BMI 27.0-27.9,adult (ICD-10 - Z68.27) Eating healthy: tips to make it easier material was printed [employer] Other 12-07-2023 [facility] Clinic Note Chief Complaint: Patient here for follow up. Carotid US was done yesterday at [facility]. Says his HR has been elevated lately, around 119. Had his device interrogated a few days ago. Still has to take nitroglycerin at times for chest pain. HPI: Lani Lizama is a 72 y.o. male being seen in post hospital follow up Hospital course: And admitted to the hospital on 01/25 as a direct transfer from [facility], With worsening chest pain for the [...] artery stenosis, Coronary artery disease, Diabetes mellitus ([facility]), Hyperlipidemia, Hypertension, PVD (peripheral vascular disease) ([facility]), and Third degree heart block ([facility]). Surgical History He has a past surgical [...] Disp: 180 tablet, Rfl: (more content not included)...[facility]11-21-2023 NotePatient seen for wound check s/p [...] 4-6 weeks. 5. No driving for 1 month.[facility]11-14-2023 NoteBiV- ICD UPGRADE & RV LEAD EXTRACTION PROCEDURE NOTE DATE OF PROCEDURE: 02/12/2023 PERFORMING PHYSICIAN: Dr. Kevin Arteaga CAKE FORMER: Dr Jamie Dupree CONSENT: Patient LOCATION: EP Lab PROCEDURE PERFORMED: 1. Implantation of Biventricular ICD ([employer]). 2. Explantation of previously implanted pacemaker generator ([employer]). 3. RV pacing lead extraction. 4. [...] catheterization revealed patent bypass grafts and worsening inupiat vessel disease. Event monitor revealed presence of [...] proceeded to place an LV lead. The Johana sheath was advanced, and EZ steer was used to cannulate the CS. There was difficulty in cannulating the CS. So I used an inner cannula and wire technique and this was still challenging. I then removed the Johana system and used a Acrisure CS sheath over a 9F short sheath. [...] stable. COMPLICATIONS: None. IM (more content not included)...[facility]11-14-2023 NotePatient: Lani Lizama Procedure Information Date/Time: 02/12/23 1100 Procedure: Biventricular ICD upgrade - Upgrade PPM to Bi-V- possibly to AICD Location: [facility] / [facility] (Cath) Providers: Kevin Arteaga MD Clinical information reviewed: Allergies Meds Physical Exam Airway Mallampati: III Cardiovascular - normal exam Dental Pulmonary - normal exam Abdominal - normal exam Anesthesia Plan ASA 3 other (Conscious sedation) Anesthetic plan and risks discussed with patient. Use of blood products discussed with patient who consented to blood products. Plan discussed with attending. Additional Equipment [facility]Ohio[facility] Evaluation note* Encounter Date Diagnosis Assessment Notes Treatment Notes Treatment Clinical Notes Jan, Chronic HFrEF (heart failure with reduced ejection fraction) (ICD-10 - I50.22) [employer] Other 11-03-2023 NoteUT Cardiology Consult Note Reason [...] and hypertension. He was recently admitted to [facility] [place]. Had inpatient stress test and heart cath. Denies SOB but still having chest pain and has taken nitroglycerin a few times for relief. Had CT chest last week s/p discharge. Cardiac catheterization revealed patent bypass grafts and worsening inupiat vessel disease. Medications were adjusted. I had [...] tablet Take 1 tablet (more content not included)...[facility]10-30-2023 NoteOccupational Therapy Occupational Therapy Evaluation Patient Name: Lani Lizama : 1950 Today's Date: 01/28/2023 Time In: 1404 Time Out: 1444 Lani Lizama is a 72 y.o. male with Hx CAD s/p 4v CABG and multiple past stents to VG to OM branch. Last LHC 01/20 at [facility] found patent bypass grafts. 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 Hme meds: ASA, Plavix, Coreg, Jardiance, Imdur 30, Lisinopril 2.5, Lovasatatin 40mg, protonix. Pt and son do not recall any other statins or reaction to statins. 01/25/[address] [facility] for 2 months of worsening CP with [...] first diagonal, SVG to OM --01/25/23 NSTEMI: LHC 01/25: stable CAD (4/4 bypass grafts patent) [...] Diagnosis Coronary atherosclerosis Type 1 diabetes mellitus ([facility]) Essential hypertension Gastroesophageal reflux disease History of coronary artery bypass surgery Increased immunoglobulin Irritable bowel syndrome Mixed hyperlipidemia Monoclonal gammopathy Nausea Overweight with body mass index (BMI) 25.0-29.9 Right lower quadrant abdominal pain Spondylosis of lumbar spine Stage 3 chronic kidney disease ([facility]) Stenosis of abdominal aorta Type 2 diabetes mellitus without complication ([facility]) AV block, 3rd degree ([facility]) Age-related nuclear cataract of both eyes Blepharitis of upper and lower eyelids of both eyes Dry eyes 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 edema associated with type 1 diabetes mellitus ([facility]) NSTEMI (non-ST elevated myocardial infarction) ([facility]) Acute on chronic systolic heart failure, NYHA class 3 ([facility]) Reduced ejection fraction concurrent with and due to acute heart failure ([facility]) Past Medical History: Diagnosis Date Carotid artery stenosis Coronary artery disease Diabetes mellitus ([facility]) Hyperlipidemia Hypertension PVD (peripheral vascular disease) ([facility]) Third degree heart block ([facility]) Past Surgical History: Procedure Laterality Date CARDIAC [...] Level of Function Prior Function Level of [place]: Independent with ADLs and functional transfers, Independent with homemaking 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 , 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) Prior IADLs IADL History Homemaking Responsibilities: Yes [...] taking off regular lo (more content not included)...[facility]10-30-2023 NoteHospital Medicine Discharge Summary Final Discharge Diagnosis: NSTEMI (non-ST elevated myocardial infarction) (CMS/HCC) Non-ischemic cardiomyopathy with EF 10% Admission Diagnosis: NSTEMI (non-ST elevated myocardial infarction) (CMS/HCC) [I21.4] Hospital course: And admitted to the hospital on 01/25 as a direct transfer from [facility], With worsening chest pain for the [...] Center 02/01/2023 9:15 AM Laila Duarte NP [facility] 03/07/2023 9:00 AM Pinky Bishop MD [facility] Your medication list START taking these medications [...] Medications These medications were sent to [facility] - [place], [place] - [address], [facility] [address] dapagliflozin propanediol 10 mg isosorbide mononitrate ER [...] 10*3/uL 141* 163 Chemistry: (more content not included)...[facility]10-[facility] Arteaga is planning upgrade to BI-V ICD on as outptUnOhioHealth [facility]10-30-2023 NoteUTP CARDIOLOGY INPATIENT PROGRESS NOTE Reason for follow up: NSTEMI, new HFrEF 10%, Angina Subjective Assessed at bedside, pt ambulates in the room without incident. Admits mild mid sternal chest pain this morning that lasted only a couple seconds and resolved. Denied shortness of breath, orthopnea or palpitations. Tele: V-paced in 90 ALLERGIES No Known Allergies CURRENT MEDS ALPRAZolam, [...] MENJIVAR graft. There is (more content not included)...[facility]10-29-2023 NoteHospital Medicine Daily Progress Note - 01/27/2023 12:00 PM; Room: [address] [place] [address] Admission: 01/25/2023 12:05 PM; Length of stay: 2 days THE HOSPITALIST TEAM PREFERS TO USE [employer] CHAT FOR COMMUNICATION 7AM-7PM. IF I DO NOT RESPOND WITHIN 15 MINUTES, PLEASE PAGE ME/CALL THROUGH THE DIP GUIDER STOVES. FROM 7PM-7AM, PLEASE PAGE [phone](COVR) Code Status: Full Code Discharge Destination: home [...] Principal Problem: NSTEMI (non-ST elevated myocardial infarction) ([facility]) Assessment and Plan NSTEMI coronary artery disease [...] for: PREALBUMIN, TSH, T3FREE, FREET4, CORTISOL, FEV1, DNW9PID, DLCO, RVSP, HDL, LDL No results found for: [id number], IRON, TIBC, C3, C4, HARISH, CANCA, ASO, PSA, CEA, CA125, CA199, AFP, CA153 Imaging Cardiac catheterization PROCEDURE PHYSICIAN: Petar Foreman MD . Indications: Lani Lizama is a 72 y.o. male with prior complex cardiac history including bypass surgery and multiple stenting procedures in the past. Last cardiac catheterization in December 2021 at an outside institution showed patent bypass grafts. (more content not included)... [facility]10-29-2023 NoteUTP CARDIOLOGY INPATIENT PROGRESS NOTE Reason [...] Med changes also reviewed. Tele: V-paced in 90s ALLERGIES No Known Allergies CURRENT MEDS ALPRAZolam, [...] Value Ventricular Rate 91 Atrial Rate 91 KS Interval 162 QRS DURATION 180 QT Interval 416 QTC CALCULATION(BAZETT) 511 P [place] 52 R-[place] -41 T Wave [place] 109 Impression Atrial-sensed ventricular-paced rhythm Abnormal ECG [...] Due to suboptimal i (more content not included)...[facility]10-28-2023 NoteHospital Medicine Daily Progress Note - 01/26/2023 12:37 PM; Room: [address] [place] [address] Admission: 01/25/2023 12:05 PM; Length of stay: 1 days THE HOSPITALIST TEAM PREFERS TO USE [employer] FOR COMMUNICATION 7AM-7PM. IF I DO NOT RESPOND WITHIN 15 MINUTES, PLEASE PAGE ME/CALL THROUGH THE DIP GUIDER STOVES. FROM 7PM-7AM, PLEASE PAGE [phone](COVR) Code Status: Full Code Discharge Destination: home [...] Principal Problem: NSTEMI (non-ST elevated myocardial infarction) ([facility]) Assessment and Plan NSTEMI coronary artery disease [...] for: PREALBUMIN, TSH, T3FREE, FREET4, CORTISOL, FEV1, SHE0MXA, DLCO, RVSP, HDL, LDL No results found for: [id number], IRON, TIBC, C3, C4, HARISH, CANCA, ASO, PSA, CEA, CA125, CA199, AFP, CA153 Imaging Cardiac catheterization PROCEDURE PHYSICIAN: Petar Foreman MD . Indications: Lani Lizama is a 72 y.o. male with prior complex cardiac history including bypass surgery and multiple stenting procedures in the past. Last cardiac catheterization in December 2021 at an outside institution showed patent bypass grafts. He presented to the [facility] with symptoms of worsening chest pain over the past 2 months. He was admitted and had rising cardiac troponin. He was referred (more content not included)...[facility]10-28-2023 NoteAdult Nutrition Assessment: Name: Lani Lizama Date: 1950 Date of Visit: 01/26/23 Admission Dx: NSTEMI (non-ST elevated myocardial infarction) ([facility]) [I21.4] Reason for assessment: high risk (HF) Information obtained from: patient, medical record, and nursing Past Medical History: Diagnosis Date Carotid artery stenosis Coronary artery disease Diabetes mellitus ([facility]) Hyperlipidemia Hypertension PVD (peripheral vascular disease) ([facility]) Third degree heart block ([facility]) Current Medications: ALPRAZolam, 0.5 mg, oral, TID [...] mL/hr, Last Rate: 50 mL/hr (01/26/23 0427) Labs: 0 Lab Value Date/Time POCGLU 120 [...] Orders (From admission, onward) Start Ordered 01/25/23 163 Regular Diet Diet effective now Question: Room Service? Answer: Yes 01/25/23 163 Meal Intake: 100% x1 documented meal; observed [...] compliance w/ MNT Contact the dietitian via [employer] 8A-4P Saturday through Saturday or call extension [phone]. For weekends & holidays, the dietitian can be reached via pager [phone] from 9A-3P. Unable to respond to [employer] messages on Saturday & s.[facility]10-28-2023 Note Attestation signed by Marry Avendano [...] Teaching Physician's Revisions: none Marry Avendano MD DC Cardiology Subjective Underwent heart cath yesterday. No [...] 89 18 96 % -- -- 01/25/23 220 110/71 -- -- 93 20 96 % -- -- 01/25/23 2100 120/81 -- -- 92 17 99 % -- -- 01/25/231999 103/73 -- -- 99 13 95 % -- -- 01/25/23 194 106/69 -- -- 94 20 97 % -- -- 01/25/23 1930 102/66 -- -- 95 18 94 % -- -- 01/25/23 1915 109/70 -- -- 98 18 93 % -- -- 01/25/23 1900 100/62 36.4 ???C (97.5 ???F) Temporal 96 20 94 % -- -- 01/25/23 1845 105/68 -- -- 98 19 95 % -- -- 01/25/23 181 112/69 -- -- 100 15 96 % -- -- 01/25/23 174 104/72 -- -- 97 19 98 % [...] to eliquis on discharge Mickie Plaza MD [employer] [facility]10-27-2023 NotePatient: Lani Lizama Procedure Information Date/Time: 01/25/23 1900 Procedures: Coronary angiography Coronary bypass graft study Location: [facility] 3 / [facility] (Cath) Providers: Petar Foreman MD [...] products. Plan discussed with attending. Additional [facility] Note Hospital Medicine History and Physical 01/25/2023 10:53 AM THE HOSPITALIST TEAM PREFERS TO USE [employer] CH[employer] FOR COMMUNICATION 7AM-7PM. IF I DO NOT RESPOND WITHIN 15 MINUTES, PLEASE PAGE ME/CALL THROUGH THE DIP GUIDER STOVES. FROM 7PM-7AM, PLEASE PAGE [phone](COVR) Chief Complaint No chief complaint on file. History of Present Illness Lani Lizama is an 72 y.o. male who came from [facility] with NSTEMI and troponin of 7000. Patient has a history of CABG and 7 stents. For the last few weeks he has had intermittent chest pain that NTG does relieve. He did have a syncopal episode 3 weeks [address] He saw Dr. Bishop on 01/17 and his lisinopril was decreased. Yesterday he had severe chest pain and went to [place] ER. Patient was admitted to [place] and initial troponin was negative but then increased to 7000. Dr. Mandel spoke with Cardiology who agreed to accept [...] edema associated with type 1 diabetes mellitus ([facility]) 10/12/2022 Gastroesophageal reflux disease 03/02/2022 Increased immunoglobulin 03/02/2022 Irritable bowel syndrome 03/02/2022 Mixed hyperlipidemia 03/02/2022 Nausea 03/02/2022 Overweight with body mass index (BMI) 25.0-29.9 03/02/2022 Right lower quadrant abdominal pain 03/02/2022 Spondylosis of lumbar spine 03/02/2022 Stage 3 chronic kidney disease ([facility]) 03/02/2022 Stenosis of abdominal aorta 03/02/2022 History of coronary artery bypass surgery 11/16/2019 Monoclonal gammopathy 07/28/2018 Type 2 diabetes mellitus without complication ([facility]) 06/03/2012 Coronary atherosclerosis 09/19/2011 Type 1 diabetes mellitus ([facility]) 09/19/2011 Essential hypertension 09/19/2011 AV block, 3rd degree ([facility]) 03/21/2022 Assessment and Plan NSTEMI - transfer from [place] - will continue heparin drip - cardiology has been consulted and plan to proceed with cardiac catherization today Syncope - patient did have his PM interrogated in [place] Acute renal failure on CKD 3b - in review of chart it looks like his Cr is 1.5 - 1.9 - 2.23 today at [place] - will gently hydrate 0.9NS @ 50 ml/hr Coronary atherosclerosis - CATH 09/2018 bypass grafts patent; mild ISR CATH 12/2021. 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 Essential hypertension - on [facility] Hyperlipidemia - cont statin DMII noninsulin dependent [...] during this hospital stay (more content not included)...[facility]10-19-2023 [facility] Chief Complaint: Patient [...] artery stenosis, Coronary artery disease, Diabetes mellitus ([facility]), Hyperlipidemia, Hypertension, PVD (peripheral vascular disease) ([facility]), and Third degree heart block ([facility]). Surgical History He has a past surgical [...] in the morning., Disp: , Rfl: HYDROcodone-acetaminophen ([place]) 5-325 mg tablet, TAKE 1 TABLET BY [...] 2+ bilaterally. No rash/sk (more content not included)...[facility] 01-07-2023 Evaluation note* Encounter Date Diagnosis [...] Continue statins. Monitor LFTs and lipid profile. [employer] Other 10-06-2023 Evaluation note* Encounter Date Diagnosis Assessment Notes Treatment Notes Treatment Clinical Notes Dec, Ground glass opacity present on imaging of lung (ICD-10 - R91.8) CT: RUL, RML - 12/2022Dec, Pulmonary nodule (ICD-10 - R91.1) CT: 7mm RML nodule - 12/2022 [employer] Other 10-03-2023 Evaluation note* Encounter Date Diagnosis Assessment Notes Treatment Notes Treatment Clinical Notes Dec, Stage 3b chronic kidney disease (ICD-10 - N18.32) [employer] Other 10-02-2023 Evaluation note* Encounter Date Diagnosis [...] risk for cerebrovascular and cardiovascular disease. 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 All other systems reviewed and are negative.[facility] 10-09-2022 NoteCardiology Clinic Note Subjective Lani Lizama is [...] and hypertension. He was recently admitted to [facility] for N[facility]. Had inpatient stress test and heart cath. Denies SOB but still having chest pain and has taken nitroglycerin a few times for relief. Had CT chest last week s/p discharge. Cardiac catheterization revealed patent bypass grafts and worsening inupiat vessel disease. Medications were adjusted. I had [...] Ischemic CMP. Update 05/02/2022 Was admitted to [facility] in December 2021 for what appears to be a non-ST elevation myocardial infarction. Cardiac catheterization revealed patent bypass grafts and worsening inupiat vessel disease. Medications were adjusted. He states that he has had no chest pain for the past week. He described what sounded like typical angina with exertion. No orthopnea, no paroxysmal external dyspnea, no lower extremity edema. No claudication. He was admitted to [facility] in March for third-degree heart block and [...] in the morning., Disp: , Rfl: HYDROcodone-acetaminophen ([place]) 5-325 mg tablet, TAKE 1 TABLET BY MOUTH (more content not included)...[facility]07-03-2023 Evaluation note* Encounter Date Diagnosis Assessment Notes Treatment Notes Treatment Clinical Notes Sep, ASHD (arteriosclerotic heart disease) (ICD-10 - I25.10) [employer] Other 06-21-2023 Evaluation note* Encounter Date Diagnosis Assessment Notes Treatment Notes Treatment Clinical Notes Aug, ASHD (arteriosclerotic heart disease) (ICD-10 - I25.10) [employer] Other 06-02-2023 Evaluation note* Encounter Date Diagnosis [...] inserts to prevent callus formation.Fall precautions. 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 All other systems reviewed and are negative.[facility] 07-24-2022 NoteCardiology Clinic Note Subjective Lani Lizama is [...] and hypertension. He was recently admitted to [facility] for NSTEM[facility]. Had inpatient stress test and heart cath. Denies SOB but still having chest pain and has taken nitroglycerin a few times for relief. Had CT chest last week s/p discharge. Cardiac catheterization revealed patent bypass grafts and worsening inupiat vessel disease. Medications were adjusted. I had [...] Ischemic CMP. Update 05/02/2022 Was admitted to [facility] in December 2021 for what appears to be a non-ST elevation myocardial infarction. Cardiac catheterization revealed patent bypass grafts and worsening inupiat vessel disease. Medications were adjusted. He states that he has had no chest pain for the past week. He described what sounded like typical angina with exertion. No orthopnea, no paroxysmal external dyspnea, no lower extremity edema. No claudication. He was admitted to [facility] in March for third-degree heart block and [...] mg 24 hr tablet, (more content not included)...[facility]04-03-2023 Evaluation note* Encounter Date Diagnosis Assessment Notes [...] D and PTH. Advised low phosphorus diet. [employer] Other 03-30-2023 Evaluation note* Encounter Date Diagnosis [...] are reviewed at the office visit. May, USP (current) use of insulin (ICD-10 - Z79.4) [...] (ICD-10 - Z12.5) Yearly PSA and ABDELRAHMAN [employer] Other 03-28-2023 Evaluation note* Encounter Date Diagnosis [...] 2. Blood glucose levels stable. According to [employer] cgm download 06/13/2022- 3: Average glucose 190. [...] hypertension material was printed on [employer]ion[employer]. May, USP current use of insulin (ICD-10 - Z79.4) May, Hyperlipidemia (ICD-10 - E78.5) High cholesterol material was printed 05/2022 ldl 69- on statin. May, BMI 27.0-27.9,adult (ICD-10 - Z68.27) Eating healthy: tips to make it easier material was printed [employer] Other 03-27-2023 NoteCardiology Clinic Note Subjective Lani Lizama is [...] and hypertension. He was recently admitted to [facility] for NSTEM[facility]. Had inpatient stress test and heart cath. Denies SOB but still having chest pain and has taken nitroglycerin a few times for relief. Had CT chest last week s/p discharge. Cardiac catheterization revealed patent bypass grafts and worsening inupiat vessel disease. Medications were adjusted. I had [...] Ischemic CMP. Update 05/02/2022 Was admitted to [facility] in December 2021 for what appears to be a non-ST elevation myocardial infarction. Cardiac catheterization revealed patent bypass grafts and worsening inupiat vessel disease. Medications were adjusted. He states that he has had no chest pain for the past week. He described what sounded like typical angina with exertion. No orthopnea, no paroxysmal external dyspnea, no lower extremity edema. No claudication. He was admitted to [facility] in March for third-degree heart block and [...] capsule, Take 1 capsu (more content not included)...[facility]03-27-[facility]23 NotePatient here c/o chest pressure with and [...] light-headedness. All other systems reviewed and are negative.[facility] 05-26-2022 Evaluation note* Encounter Date Diagnosis Assessment Notes Treatment Notes Treatment Clinical Notes May, Abnormality of lung on CXR (ICD-10 - R91.8) [employer] Other [id number] Evaluation note* Encounter Date Diagnosis Assessment Notes [...] 2. Blood glucose levels stable. According to [employer] cgm download 03/07/2022-03/20/20 22: Average glucose 144. Above 250-0%, >180- 15%, 70-180-85%, <70-0%, <54-0%. CV 24.3%. Reviewed download with pt, no incidence of hypoglcyemia noted. Glucose rise between 12-6pm. D/t current shortage of ozempic, recommend pt reduce dose to 0.5mg once weekly until shipment recieved from [facility], then increase to 1mg once [...] hypertension material was printed on [employer]ion[employer]. Mar, USP current use of insulin (ICD-10 - Z79.4) Mar, Hyperlipidemia (ICD-10 - E78.5) High cholesterol material was printed 06/2021 ldl 48- on statin. Mar, BMI 26.0-26.9,adult (ICD-10 - Z68.26) Eating healthy: tips to make it easier material was printed 9 pound weight loss from last visit, continue with weight loss efforts [employer] Other 11-10-2022 Evaluation note* Encounter Date Diagnosis Assessment Notes Treatment Notes Treatment Clinical Notes Jan, Diabetes mellitus with chronic kidney disease (ICD-10 - E11.22) [employer] Other 10-19-2022 Discharge summary Author Gagan Shahid [facility] January 17, 2022 3:02pm Note Date/Time January 17, 2022 3 :02pm [facility] [address] [place] [address] Discharge Summary Signed Patient: Lani Lizama MR#: [id number] : 1950 Acct:[id number] Age/Sex: 71 / M Adm Date: 2 Loc: Room: [address] [place] [address]: Gagan Shahid DO Copies to: DO Gagan Hudson, ~ Providers Date of Discharge: 01/17/22 Discharging Provider: [...] thought this to be indigestion/GERD in the film 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 Cardiac catheterization was undergone on 01/16/2022 showing [...] levels as before. DISCHARGE INSTRUCTIONS FOR CARDIAC ADVANCED PRACTICE PROFESSIONAL PHONE NUMBER OF YOUR PHYSICIAN: [phone] PROCEDURE: Heart Cath The following instructions have [...] cold, numb, blue or white, call the digital designer immediately. 4. ACTIVITY: You are advised to [...] bottle, follow the instructions on the bottle. [facility] is not responsible for incorrect prescription information [...] please call to reschedule if needed.) Porfirio Fair, JULY [Nurse Practitioner] - 01/24/22 4:00 pm Documented By: Gagan Shahid DO 01/17/22 14 57 Signed By: <Electronically signed by Gagan Shahid DO> 01/17/22 1502 [facility] Work Phone: 1(620) 493-115410-19-2022 Progress note Author Luis Alfredo Borges [facility] January 17, 2022 11:47am Note Date/Time January 17, 2022 1 1:47am [facility] [address] [place] [address] Cardiology Progress Note Signed Patient: Lani Lizama MR#: [id number] : 1950 Acct:[id number] Age/Sex: 71 / M Adm Date: 2 Loc: 3T Room: [address] [place] [address] Type: ADM IN Attending Dr: Gagan Shahid [...] is also notable worsening of the patient's inupiat occlusive coronaryheart disease particularly in the microcirculation [...] daily 3. Patient does have a primary digital designer near his home in [place]. We willschedule him 1 follow-up visit in [facility] for left wrist check and also for counseling and reinforcement/referral to phase 2 monitored cardiac rehabilitation which the patient desires to perform in [place]. 4. Instructed the patient that he can [...] 30 Documented By: Luis Alfredo Borges MD 01/17/22 114 Signed By: <Electronically signed by Luis Alfredo Borges MD> 01/17/22 1147 [facility] Work Phone: 1(713) 391-836710-18-2022 Progress note Author Gagan Shahid [facility] January 16, 2022 4:09pm Note Date/Time January 16, 2022 4 :09pm [facility] [address] [place] [address] Hospitalist Progress Note Signed Patient: Lani Lizama MR#: [id number] : 1950 Acct:[id number] Age/Sex: 71 / M Adm Date: 2 Loc: Room: [address] [place] [address] Type: ADM IN Attending Dr: Gagan Shahid [...] 01/16/22 09:00 01/16/22 08:49 Aspirin 81 Mg Tablet. PO 01/16/23 08:59 81 mg DAILY RICARDA Administration [...] Insuln.Pen SUBCUT 01/15/23 21:59 Not Given TID.WM.[facility] Protocol Isosorbide Mononitrate 60 mg 01/16/22 21:00 [...] Gagan Shahid DO> 01/16/22 1609 [facility] Work Phone: [phone] 498-603610-18-2022 [facility] Consult note Author Luis Alfredo Borges [facility] January 16, 2022 10:24am Note Date/Time January 16, 2022 1 0:24am [facility] [address] [place] [address] Cardiology Consult Note Signed Patient: Lani Lizama MR#: [id number] : 1950 Acct:[id number] Age/Sex: 71 / M Adm Date: 2 Loc: 3T Room: [address] [place] [address] Type: ADM IN Attending Dr: Gagan Shahid [...] well as history of PCI done here [facility] per Dr. Saldaña in May 2020 who [...] he activated EMS and was taken to [facility] emergency department. There the patient was [...] negative unless noted below or in HPI [facility] Vacc[facility] for [facility]-19?: Yes Medical History (Updated [...] Lymph # (Auto) 1.0 1.6 (1.00-4.8) x10E3/uL [place] # (Auto) 0.4 0.8 (0.0-0.8) x10E3/uL Eos [...] nonspecific abnormality, ST segment, and/or T wave NM, pacemaker, normal Normal tracing: no change compared [...] by Luis Alfredo Borges MD> 01/16/22 1024 [facility] Work Phone: 1(521) 305-927210-17-2022 History and physical note Author Gagan Shahid [facility] January 15, 2022 6:56pm Note Date/Time January 15, 2022 6 :02pm [facility] [address] [place] [address] Hospitalist H&P Signed Patient: Lani Lizama MR#: [id number] : 1950 Acct:[id number] Age/Sex: 71 / M Adm Date: 2 Loc: Room: [address] [place] [address] Type: ADM IN Attending Dr: Gagan Shahid [...] need for cardiovascular evaluation [facility] management and cardiology consultation. Upon [...] negative unless noted below or in HPI [facility] Vaccinated for COVID-19?: Yes Medical History (Updated [...] % (Auto) 13.8 % (.) 01/15/22 15:00 [place] % (Auto) 6.1 % (.) 01/15/22 15:00 Eos % (Auto) 0.9 % (.) 01/15/22 15:00 Baso % (Auto) 0.5 % (.) 01/15/22 15:00 Neut # (Auto) 5.6 x10E3/uL (1.8-7.7) 01/15/22 15:00 Lymph # (Auto) 1.0 x10E3/uL (1.00-4.8) 01/15/22 15:00 [place] # (Auto) 0.4 x10E3/uL (0.0-0.8) 01/15/22 15:00 [...] Documented By: Gagan Shahid DO 01/15/22 18 01 Signed By: <Electronically signed by Gagan Shahid DO> 01/15/22 1856 [facility] Work Phone: 1(661) 496-140909-19-2022 Evaluation note* Encounter Date Diagnosis Assessment Notes [...] Blood glucose levels above improved. According to [employer] cgm download 12/05/2021- 2: Average glucose 119. [...] hypertension material was printed on [employer]. 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 Nov, BMI 27.0-27.9,adult (ICD-10 - Z68.27) Eating healthy: tips to make it easier material was printed 22 pound weight loss from last visit, continue with weight loss efforts [employer] Other [id number] Miscellaneous Notes* Telephone Encounter - Vee Day - 10/20/2021 9:42 AM EDT New CBC order. [facility]ee [facility] NoteChief Complaint consultation for cholelithiasis HPI Staff [...] RLQ ASHD (arteriosclerotic heart disease) Atheroscler of inupiat artery of both legs with intermit claudication BMI 28.0-28.9,adult BPH associated with nocturia Cholelithiasis Controlled diabetes mellitus with diabetic polyneuropathy, with long-term current use of insulin Diabetic retinopathy Elevated serum immunoglobulin free light chains GERD (gastroesophageal reflux disease) IBS (irritable bowel syndrome) Lumbar spondylosis MGUS (monoclonal gammopathy of unknown significance) Mixed hyperlipidemia Nausea Obesi (more content not included)...[facility]: Result Comment: Electronically Signed By: FRANKIE LEMUS, Gagan Bal\Date and Time Signed: 10/17/21 12:19 [id number] Evaluation note* Encounter Date Diagnosis Assessment Notes [...] Blood glucose levels above improved. According to [employer] cgm download 07/04/2021-07/17/2021 : Average glucose 146. [...] hypertension material was printed on diony. Jun, USP current use of insulin (ICD-10 - Z79.4) Jun, BMI 30.0-30.9,adult (ICD-10 - Z68.30) Eating healthy: tips to make it easier material was printed see above Jun, Bradycardia (ICD-10 - R00.1) asymptomatic- f/u with cardiology has upcoming apt. If symptomatic i.e. light headed notify sooner [employer] Other 03-21-2022 Evaluation note* Encounter Date Diagnosis Assessment Notes Treatment Notes Treatment Clinical Notes May, Gastro-esophageal reflux disease with esophagitis, without bleeding (ICD-10 - K21.00) [employer] Other 03-08-2022 Evaluation note* Encounter Date Diagnosis [...] down the progression of CKD. 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 [employer] Other 02-21-2022 Evaluation note* Encounter Date Diagnosis Assessment Notes Treatment Notes Treatment Clinical Notes May, Diabetes mellitus with chronic kidney disease (ICD-10 - E11.22) [employer] Other 01-10-2022 Evaluation note* Encounter Date Diagnosis Assessment Notes Treatment Notes Treatment Clinical Notes Apr, Type 2 diabetes mellitus with hyperglycemia (ICD-10 - E11.65) [employer] Other 01-10-2022 Evaluation note* Encounter Date Diagnosis [...] Blood glucose levels above improved. According to [employer] cgm download 03/28/2021-04/10/19 22: Average glucose 167. [...] was also given rx assist paperwork for [facility] if he does not qualify for BI/jardiance. Ozempic will increase to 1mg once weekly. Apr, Hyperlipidemia (ICD-10 - E78.5) High cholesterol material was printed 07/2020 ldl 64 trig 207- on statin. Apr, HTN (hypertension) (ICD-10 - I10) About hypertension material was printed on diony. Apr, USP current use of insulin (ICD-10 - Z79.4) Apr, BMI 30.0-30.9,adult (ICD-10 - Z68.30) Eating healthy: tips to make it easier material was printed see above [employer] Other 11-16-2021 Evaluation note* Encounter Date Diagnosis [...] His MBD parameters are within the goal. [employer] Other 10-05-2021 Evaluation note* Encounter Date Diagnosis [...] above target with increased variability. According to [employer] cgm download 12/07/2020-01/03/2021: Average glucose 135. Above [...] hypertension material was printed on diony. 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 Notified digital designer Dr. Velazquez. Pt has apt on Saturday next week. [employer] Other Evaluation + Plan note No data available for this section General Surgery [place] Evaluation noteNo InformationNort flux - neutrinity Other Evaluation note* Diagnosis Monoclonal gammopathy- Primary Monoclonal paraproteinemia [facility] Onset Date Resolution Status Non-ST elevation myocardial infarction (NSTEMI), initial care episode acute [facility] [employer] Work Phone: Evaluation noteNo assessment information available [facility] [employer] Work Phone: History general Narrative - Reported* Type Description [...] 11-25-16 Hospitalization History HEART STENT PLACED 03-20 [employer] Other History general Narrative - [employer]No[employer] Other [employer] general Narrative - Reported* Type Description Date [...] 11-25-16 Hospitalization History HEART STENT PLACED 03-20 [employer] Other Hisgyvx general Narrative - Reported* Type Description Date [...] 11-25-16 Hospitalization History HEART STENT PLACED 03-20 [employer] Other Digeratitory general Narrative - Reported* Type Description Date [...] 01/2022 Hospitalization History Chest 05/2012 Hospitalization History [facility] STENTS PLACED 11-25-16 Hospitalization History HEART STENT PLACED 03-20 [employer] Other [facility] general Narrative - Reported* Type Description Date [...] STENT PLACED 03-20 Hospitalization History SEE ABOVE [employer] Other History general Narrative - ReportedNoPronto [employer] Other Hisjrso general Narrative - Reported* Type Description Date [...] STENT PLACED 03-20 Hospitalization History SEE ABOVE [employer] Other Hisetdb general Narrative - Reported* Type Description Date [...] pneumonia-10/2021 Medical History Heart attacks 01/2022 and 12/11/ 22 Medical History GGO and Pulmonary nodules Surgical [...] STENT PLACED 03-20 Hospitalization History SEE ABOVE [employer] Other History general Narrative - Reported* Type [...] STENT PLACED 03-20 Hospitalization History SEE ABOVE [employer] Other History general Narrative - Reported* Type [...] History GGO and Pulmonary nodules Medical History NM 01/21 Medical History Defibrilator 02/21 Surgical History [...] 03-20 Hospitalization History SEE ABOVE Hospitalization History NM 01/21 [employer] Other Hospital Discharge instructions No data available for this section General Surgery [facility] Discharge instructions Additional Instructions Monitor glucose levels as before. DISCHARGE INSTRUCTIONS FOR CARDIAC ADVANCED PRACTICE PROFESSIONAL PHONE NUMBER OF YOUR PHYSICIAN: [phone] PROCEDURE: Heart Cath The following instructions have [...] cold, numb, blue or white, call the digital designer immediately. 4. ACTIVITY: You are advised to [...] bottle, follow the instructions on the bottle. [facility] is not responsible for incorrect prescription information provided by the patient during their visit. Do not stop your medications without consulting your health care provider. Please take the list with you to your next doctor's appointment. [facility] Work Phone: Progress note No data available for this section General Surgery [place] Summary Purpose Family History No Family History Records Found Relationship Condition Age at Onset Recorded Date/T maximo Not Specified Heart disease Unknown Relationship Condition Age at Onset Recorded Date/T maximo brother Malignant neoplasm Unknown Diabetes mellitus Unknown Heart disease Unknown daughter Crohn's disease Unknown father Unknown Malignant neoplasm Unknown family member Unknown Not Specified Diabetes mellitus Unknown Unknown Advance Directives No Advanced Directives Records Found Advance Directive Response Recorded Date/ Time Advance Directives No September 19 8:18am Advance Directive Response Recorded Date/ Time Advance Directives No September 19 7:18am Chief Complaint and Reason for Visit Chief Complaint E11.65 non stemi Reason for Visit Non-ST elevation rachel cardial infarction (NSTEMI), initial care episode Chief Complaint Dm E11.65 4 Month Follow Up Additional Source Comments (unrecognized sect ion and content) No Status Records FoundNo Status Records FoundNo Status Records FoundNo Status Records FoundNo Status Records FoundNo Status Records Found INFORMATION SOURCE (unrecogn ized section and content) DATE CREATED AUTHOR 11/29/2018 [facility] DATE CREATED AUTHOR AUTHOR'S ORGANIZ ATION 10/20/2021 [facility] DATE CREATED AUTHOR AUTHOR'S ORGANIZ ATION 10/25/2021 [facility] DATE CREATED AUTHOR AUTHOR'S ORGANIZ ATION 08/13/2022 [facility] DATE CREATED AUTHOR AUTHOR'S ORGANIZ ATION 05/08/2023 [facility] DATE CREATED AUTHOR AUTHOR'S ORGANIZ ATION 05/16/2023 [facility] REASON FOR VISIT (unrecogniz ed section and content) Reason Comments Lab Orders Care Team (unrecognized sect ion and content) 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 Specialty Start Date End Date Harley Crespo DO [address] [place] [address] PCP - General Internal Medicine 07/18/18 Team Status: Inactive Member Role Status Dates Harley Crespo DO Primary Care Provider Active Gagan Shahid DO Admit Provider, Attending Provider Active Team Status: Active Member Role Status Dates Harley Crespo DO Primary Care Provider Active Ryan Garrett APRN EMPLOYMENT LEGAL ASSISTANT-C Active Valerie Gallegos PA-C Active Viky Kwong APRN Attending Provider Active Team Status: Active Member Role Status Dates Harley Crespo DO Primary Care Provider Active Team Status: Inactive Member Role Status Dates Viky Kwong APRN Attending Provider Active Start: March 12, 2023 End: March 12, 2023 Team Status: Inactive Member Role Status Dates Harley Crespo DO Primary Care Provider Active Start: March 12, 2023 End: March 12, 2023 Ryanefrain Garrett APRN NP-C Active Sta rt: March 12, 2023 End: March 12, 2023 Valerie Gallegos PA-C Active St art: March 12, 2023 End: March 12, 2023 Viky Kwong APRN Attending Provider Active Start: March 12, 2023 End: March 12, 2023 Team Status: Inactive Member Role Status Dates Harley Crespo Attending Provider Active Sta rt: May 03, 2023 End: May 03, 2023 Source Comments (unrecognize d section and content) In the event this informatio n is protected by the Federal Confidentiality of Alcohol and Drug Abuse Patient Records regulations: The Federal rules restrict any use of the information to criminally investigate or prosecute any alcohol or drug abuse patient.[facility] Goals (unrecognized section and content) Goals may be documented in a n alternate section FOR RECORDS PERTAINING TO PATIENTS WHO ARE [...] BE BASED ON THE PRIMARY CLINICAL RECORDS. [employer] [facility]. provides no warranty or guarantee of the accuracy or completeness of information in this document.
[2023-06-13 09:22] LABS: Chol HDL Ratio 2.6; Cholesterol 87 mg/dL (<=200); HDL Cholesterol 34 mg/dL (40-60); Triglycerides 124 mg/dL (<=150); VLDL CHOLESTEROL 24.8 mg/dL
== END 2023-06-13 07:57 | disposition home or self-care (01) ==
LOC: LAB 07:59
PROVIDERS: PCP Internal Medicine
DX: E78.5 Hyperlipidemia, unspecified (principal)
CPT/HCPCS: 36415; 80061

== ENCOUNTER 2023-06-20 07:42 | Outpatient (OUT) | payer MEDICARE, OTHER, SELFPAY ==
--- OUTSIDE RECORDS SUMMARY | 2023-06-20 07:46 | XMS_ITS | CCD ---
Author Organization [facility] Care Team Providers Care Edge Inker Uppers Name Role Phone VIJAY, EHAB A Admitting Unavailable ELTADONTAEY, EHAB A Attending Unavailable HARLEY CRESPO Referring Unavailable HARLEY CRESPO Primary Care Unavailable ELTAHAWY, NETOAB A Surgeon Unavailable [place] Procedure Practitioner Unavailab le ELTAHAWY, NETOAB A Admitting Unavailable VIJAY, PINKY A Attending Unavailable HARLEY CRESPO Referring Unavailable CHERIE, HARLEY Primary Care Unavailable Arlen Kwong Unavailable Kingsley Good Unavailable Shannon Escobar Unavailable HARLEY CRESPO Primary Care Physician Harley Crespo DO Primary Care Provider DO Harley Crespo Primary Care Provider [phone] JULY Kwong Attending Provider DO Gagan Shahid Admit Provider DO Gagan Shahid Attending Provider Harley Crespo Unavailable VIJAY, DR LOWE Consulting Unavailable CHERIE, DR CARVALHO Primary Care Unavailable ELTAHAWJo, DR LOWE Attending Unavailable ELTAHAWJo, DR LOWE Admitting Unavailable VLAD, DR PARUL Sanchez Procedure Practitioner Unavaila ble NIDA ., DR OBDULIO Cisneros Attending Unavailable NIDA ., DR OBDULIO Cisneros Admitting Unavailable VLAD, DR PARUL Sanchez Consulting Unavailable CHERIE, DR CARVALHO Primary Care Unavailable NIDA ., DR OBDULIO Cisneros Consulting Unavailable JASPAL ACEVES Consulting Unavailable CHERIE, DR CARVALHO Admitting Unavailable CHERIE, DR CARVALHO Attending Unavailable BALL, DR CARVALHO Primary Care Unavailable CHERIE, DR CARVALHO Consulting Unavailable ZIEBFLAVIO, DR HIGINIO Sanchez Consulting Unavailable ZIEBFLAVIO, DR HIGINIO Sanchez Consulting Unavailable CHERIE, DR CARVALHO Primary Care Unavailable KEVIN ARTEAGA Attending Unavailable KEVIN ARTEAGA Admitting Unavailable JENNI, KEVIN Consulting Unavailable ELTAHAWY, [...] ZIEBER, DR HIGINIO Sanchez Consulting Unavailable MAPUS, ARLEN Consulting Unavailable BALL, DR CARVALHO Primary Care Unavailable MAPUS, ARLEN Attending Unavailable MAPUS, TON Admitting Unavailable WEST, DR SHANNON Hernandez Consulting Unavailable BALL, DR CARVALHO Primary Care Unavailable ELTAHAWY, DR LOWE Attending Unavailable ELTAHAWY, DR LOWE Admitting Unavailable ELTAHAWY, DR LOWE Consulting Unavailable BALL, DR CARVALHO Admitting Unavailable BALL, DR CARVALHO Attending Unavailable BALL, DR CARVALHO Primary Care Unavailable BALL, DR CARVALHO Consulting Unavailable BALL, DR CARVALHO Primary Care Unavailable PAY ., DR GORDILLO Admitting Unavailable PAY ., DR GORDILLO Attending Unavailable PAY ., DR GORDILLO Consulting Unavailable GAGAN CAREY Consulting Unavailable Denita Chairez Unavailable KEVIN ARTEAGA Referring Unavailable LAILA DUARTE Attending Unavailable KEVIN ARTEAGA Admitting Unavailable JENNI, KEVIN Attending Unavailable DEISY SOARES Attending Unavailable RODGER, DEISY Referring Unavailable ELTAHAWJo, PINKY Attending Unavailable PETER, LAILA Attending Unavailable DELTA VARGAS Referring Unavailable PEDROABIEL BARRETO Admitting Unavailable LAURASP Attending Unavailable PEPE, TIN Referring Unavailable BARAZI, LAILA Attending Unavailable PEPE, TIN Referring Unavailable ELTAHAWY, EHAB Attending Unavailable KEVIN ARTEAGA Referring Unavailable JENNI, KEVIN Referring Unavailable JENNI, KEVIN Referring Unavailable DEISY SOARES Attending Unavailable RODGER, DEISY Attending Unavailable JENNI, KEVNI Referring Unavailable JENNI, KEVIN Referring Unavailable JENNI, KEVIN Attending Unavailable DEISY SOARES Attending Unavailable DO Harley Crespo Primary Care Provider JULY Kwong Attending Provider [phone] Arlen Kwong Attending Unavailable Arlen Kwong Admitting Unavailable Harley Crespo Primary Care Unavailable Allergies Allergy Classification Reported Allergen(s) Allergy Type Date of Onset Reaction(s) Facility (1 source) 97611,00; Translations: [Unknown] Propensity to adverse reactions (disorder) 9 [facility] Repository Medications Current Medications Medication Drug Class(es) [...] 3 TIMES A DAY for Jan, Active Comment on above: Take 0.5 [...] MG PO Twice daily with meals 60 January 16, 2022 11:00pm Start: 09-07-2021 take [...] Daily June 21, 2020 11:00pm empagliflozin (J MESERETDIANCE) 25 mg tablet q 24 HR. 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; Translations: [jail current use of insulin Z79.4] Onset: 1 [...] Onset: 09-29-2021 Episodic Other aftercare (1 source) 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; Translations: [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] Onset: 04-03-2022 Episodic Other aftercare (1 source) Other halfway (current) drug therapy; Translations: [OTH TRAILER RENTAL CLERK CURRENT DRUG THERAPY] Onset: 04-03-2022 Episodic Other [...] Range Facility Office Visiton 05-07-2023 Follow-up visit [id number] Lani Lizama 1950 M Date Provider Department Center 05/07/2023 KEVIN DEMPSEY Family History Problem Relation Age of Onset Heart attack Mother Other Father Other Brother Heart attack Maternal Grandmother Heart attack Maternal Grandfather Family Status - Relation Status Age at Mother Father Brother Maternal Grandmother Maternal Grandfather Level of Service:45754 [place] OFFICE/OUTPATIENT ESTABLISHED LOW MDM 20 MIN Normal [facility] Office Visiton 04-30-2023 Follow-up visit [id number] Lani Lizama 1950 M Date Provider Department Center 04/30/2023 LAILA MCBRIDE Family History Problem Relation Age of Onset Heart attack Mother Other Father Other Brother Heart attack Maternal Grandmother Heart attack Maternal Grandfather Family Status - Relation Status Age at Mother Father Brother Maternal Grandmother Maternal Grandfather Level of Service:92802 [place] OFFICE/OUTPATIENT ESTABLISHED MOD MDM 30 MIN Normal [facility] Office Visiton 03-18-2023 Follow-up visit [id number] Lani Lizama 1950 M Date Provider Department Center 03/18/2023 Nakul-LAILA DUARTE CARD [facility] Family History Problem Relation Age of Onset Heart attack Mother Other Father Other Brother Heart attack Maternal Grandmother Heart attack Maternal Grandfather Family Status - Relation Status Age at Mother Father Brother Maternal Grandmother Maternal Grandfather Level of Service:90819 [place] OFFICE/OUTPATIENT ESTABLISHED MOD MDM 30 MIN Normal [facility] A1C HEMOGLOBINon 03-12-2023 HbA1c (Bld) [Mass fraction] 7.1 % [employer] [facility] [employer] Other Glucose - FINGER STICKon Glucose [Mass/Vol] 151 mg/dL [employer] Other HbA1c (Bld) [Mass fraction]o n 03-12-2023 A1C [facility]IN [facility] 03-07-2023 Follow-up visit [id number] Lani Lizama 1950 Date Provider Department Center 03/07/2023 271-PINKY BISHOP CARD [facility] Family History Problem Relation Age of Onset Heart attack Mother Other Father Other Brother Heart attack Maternal Grandmother Heart attack Maternal Grandfather Family Status - Relation Status Age at Mother Father Brother Maternal Grandmother Maternal Grandfather Level of Service:28563 [place] OFFICE/OUTPATIENT ESTABLISHED MOD MDM 30-39 MIN Normal [facility] Orders Onlyon 02-27-2023 Orders Only [id number] Lani Lizama 1950 Date Provider Department Center 02/27/2023 Bart-GEOVANNA BASS CARD [facility] Family History Problem Relation Age of Onset Heart attack Mother Other Father Other Brother Heart attack Maternal Grandmother Heart attack Maternal Grandfather Family Status - Relation Status Age at Mother Father Brother Maternal Grandmother Maternal Grandfather Normal [facility] Office Visiton 02-19-2023 Follow-up visit [id number] Lani Lizama 1950 M Date Provider Department Center 02/19/2023 DEISY SCHWARTZ CARD [facility] Family History Problem Relation Age of Onset Heart attack Mother Other Father Other Brother Heart attack Maternal Grandmother Heart attack Maternal Grandfather Family Status - Relation Status Age at Mother Father Brother Maternal Grandmother Maternal Grandfather Level of Service:31804 NH POSTOP FOLLOW UP VISIT RELATED TO ORIGINAL PX Normal [facility] HPon 02-12-2023 HP ------ -- Attestation signed [...] and hypertension. He was recently [place] [facility] [place]. Had inpatient stress test and heart cath. Denies SOB but still having chest pain and has taken nitroglycerin a few times for relief. Had CT chest last week s/p discharge. Cardiac catheterization revealed patent bypass grafts and worsening [place] river [place] vessel disease. Medications were adjusted. I had [...] the morning. rubina (more content not included)... [facility] NURSNOTEon 02-12-2023 NURSNOTE RN educated pt on d/ c instructions. RN encouraged pt to voice any questions or concerns. Pt verbalizes no questions or concerns at this time. [facility] NURSNOTE CHG wipes and iodine nasal swab completed per protocol. [facility] Orders Onlyon 02-12-2023 Orders Only [id number] Lani Lizama 1950 M Date Provider Department Center 02/12/2023 PORFIRIO GAXIOLA [facility] Family History Problem Relation Age of Onset Heart attack Mother Other Father Other Brother Heart attack Maternal Grandmother Heart attack Maternal Grandfather Family Status - Relation Status Age at Mother Father Brother Maternal Grandmother Maternal Grandfather [facility] Follow-Upon 02-01-2023 Follow-Up [id number] Lani Lizama 1950 M Date Provider Department Center 02/01/2023 Nakul-LAILA DUARTE Family History Problem Relation Age of Onset Heart attack Mother Other Father Other Brother Heart attack Maternal Grandmother Heart attack Maternal Grandfather Family Status - Relation Status Age at Mother Father Brother Maternal Grandmother Maternal Grandfather Level of Service:69593 [place] OFFICE/OUTPATIENT ESTABLISHED MOD MDM 30-39 MIN Reason for Visit and Comments: Follow-up [[id number]] Normal [facility] 30on 01-28-2023 30 The patient is Moder ately Stable - Low risk of patient condition declining or worsening The patient's goals for the shift include comfort The clinical goals for the shift include vss, safety Over the shift, the patient continued to make progress toward the following goals. Normal [facility] APTTon 01-28-2023 ACTIVATED PARTIAL THROMBOPLASTIN TIME IN PPP BY COAGULATION ASSAY 125.9 Seconds High 25.0-35.0 [facility] Comment on above: Result Comment: Clin ical significance of the APTT is questionable in the presence of heparin. Performed By: #### L [id number] #### [facility] ([facility]) [address] [place] [address] BASIC METABOLIC PANELon 01-01 Anion gap [Moles/Vol] 10 mmol/L Normal 7-20 [facility] Comment on above: Performed By: #### L [id number] ####[facility] ([facility])[address] [place] [address] Calcium [Mass/Vol] 9.1 mg/dL Normal 8.6-10.3 [facility] Comment on above: Performed By: #### L [id number] ####[facility] ([facility])[address] [place] [address] Chloride [Moles/Vol] 110 mmol/L High 98-107 [facility] Comment on above: Performed By: #### L [id number] ####[facility] ([facility])[address] [facility] [place] [address] CO2 [Moles/Vol] 24 mmol/L Normal 21-31 [facility] Comment on above: Performed By: #### L [id number] ####[facility] ([facility])[address] [place] [address] Creatinine [Mass/Vol] 1.46 mg/dL High 0.70-1.30 [facility] Comment on above: Performed By: #### L [id number] ####[facility] ([facility])[address] [place] [address] GLOMERULAR FILTRATION RATE ML/MIN/1.73 SQ M.PREDICTED 51.1 mL/min/1.73m*2 Low >60.0 [facility] Comment on above: Result Comment: [facility]???s estimated glomerular filtration rate (eGFR) [...] individuals. Performed By: #### L [id number] ####[facility] ([facility])[address] [place] [address] Glucose [Mass/Vol] 133 mg/dL High 70-100 [facility] Comment on above: Performed By: #### L [id number] ####[facility] ([facility])[address] [place] [address] Potassium [Moles/Vol] 4.0 mmol/L Normal 3.5-5.1 [facility] Comment on above: Performed By: #### L [id number] ####[facility] ([facility])[address] [place] [address] Sodium [Moles/Vol] 140 mmol/L Normal 136-145 [facility] Comment on above: Performed By: #### L [id number] ####[facility] ([facility])[address] [place] [address] Urea nitrogen [Mass/Vol] 23 mg/dL Normal 7-25 [facility] Comment on above: Performed By: #### L [id number] ####[facility] ([facility])[address] [place] [address] UREA NITROGEN/CREATININE (MASS RATIO) IN SER/PLAS 15.8 Normal [facility] Comment on above: Performed By: #### L [id number] ####[facility] [place] [address] CBCon 01-28-2023 Erythrocyte distribution width (RBC) [Ratio] 13.2 % Normal 11.5-15.0 [facility] Comment on above: Performed By: #### L [id number] ####[facility] ([facility])[address] [place] [address] ERYTHROCYTE MEAN CORPUSCULAR HEMOGLOBIN CONCENTRATION (G/DL) BY AUTOMATED 33.8 g/dL Normal 32.0-35.0 [facility] Comment on above: Performed By: #### L [id number] ####[facility] [place] [address] Hematocrit (Bld) [Volume fraction] 39.0 % Normal 39.0-55.0 [facility] Comment on above: Performed By: #### L [id number] ####[facility] [place] [address] Hemoglobin (Bld) [Mass/Vol] 13.2 g/dL Normal 13.0-17.0 [facility] Comment on above: Performed By: #### L [id number] ####[facility] ([facility])[address] [place] [address] MCH (RBC) [Entitic mass] 31.1 pg Normal 27.0-33.0 [facility] Comment on above: Performed By: #### L [id number] ####[facility] ([facility])[address] [place] [address] MCV (RBC) [Entitic vol] 91.8 fL Normal 82.0-98.0 [facility] Comment on above: Performed By: #### L [id number] ####[facility] ([facility])[address] [place] [address] PLATELETS (10*3/UL) IN BLOOD AUTOMATED COUNT 141 10*3/uL Low 150-400 [facility] Comment on above: Performed By: #### L [id number] ####[facility] [place] [address] RBC (Bld) [#/Vol] 4.25 10*6/uL Normal 4.20-5.70 [facility] Comment on above: Performed By: #### L [id number] ####[facility] ([facility])[address] [place] [address] WBC (Bld) [#/Vol] 6.40 10*3/uL Normal 4.00-10.60 [facility] Comment on above: Performed By: #### L [id number] ####[facility] ([employer])[address] [place] [address] LIPID PANELon 01-28-2023 CHOL/HDL 3.7 mg/dL Normal [facility] Comment on above: Performed By: #### L [id number] #### [facility] ([facility]) [address] [place] [address] Cholesterol [Mass/Vol] 111 mg/dL Low 120-200 [facility] Comment on above: Performed By: #### L [id number] #### [facility] ([facility]) [address] [place] [address] Magnesium [Mass/Vol] 172 mg/dL High 40-149 [facility] Comment on above: Result Comment: TRIG LYCERIDE REFERENCE RANGE: 20 YEARS AND OLDER CARDIOVASCULAR RISK LESS THAN 150 mg/dL LOW RISK 150 TO 199 mg/dL BORDERLINE RISK 200 mg/dL AND GREATER HIGH RISK Performed By: #### L [id number] #### [facility] ([facility]) [address] [place] [address] Magnesium [Mass/Vol] 47 mg/dL Normal 0-160 [facility] Comment on above: Performed By: #### L [id number] #### [facility] [address] [place] [address] Magnesium [Mass/Vol] 30 mg/dL Normal 23-92 [facility] Comment on above: Performed By: #### L [id number] #### [facility] ([facility]) [address] [place] [address] NON HDL CHOL. (LDL+VLDL) 81 Normal [facility] Comment on above: Performed By: #### L [id number] #### [facility] ([facility]) [address] [place] [address] TOTAL VLDL-C 34 mg/dL Normal 0-40 [facility] Comment on above: Performed By: #### L [id number] #### [facility] ([facility]) [address] [place] [address] Orders Onlyon 01-28-2023 Orders Only [id number] Lani Lizama 1950 [facility] Provider Department Center 01/28/2023 MARGOT PAUL [facility] Family History Problem Relation Age of Onset Heart attack Mother Other Father Other Brother Heart attack Maternal Grandmother Heart attack Maternal Grandfather Family Status - Relation Status Age at Mother Father Brother Maternal Grandmother Maternal Grandfather Normal [facility] POCT GLUCOSE METER UNSOLICIT ED RESULTSon 01-28-2023 Glucose [Mass/Vol] 155 mg/dL High 70-105 [facility] Comment on above: Order Comment: Waive d Testing in the ED is performed under the ED CLIA certificate #[id number]. Result Comment: [email or web address] Performed By: #### L [id number] ####[facility] ([facility])[address] [place] [address] Glucose [Mass/Vol] 151 mg/dL High 70-105 [facility] Comment on above: Order Comment: Waive d Testing in the ED is performed under the ED CLIA certificate #[id number]. Result Comment: [email or web address] Performed By: #### L [id number] #### [facility] ([facility]) [address] [place] [address] Glucose [Mass/Vol] 133 mg/dL High 70-105 [facility] Comment on above: Order Comment: Waive d Testing in the ED is performed under the ED CLIA certificate #[id number]. Result Comment: [email or web address] Performed By: #### L [id number] #### [facility] ([facility]) [address] [place] [address] 30on 01-27-2023 30 The patient is Moder ately Stable - Low risk of patient condition declining or worsening The patient's goals for the shift include Comfort The clinical goals for the shift include VSS, safety Problem: Pain - Adult Goal: Verbalizes/displays adequate comfort level or baseline comfort level Outcome: Progressing Flowsheets (Taken 01/27/202312) Verbalizes/displays adequate comfort level or baseline comfort level: Encourage patient to monitor pain and request assistance Problem: Safety - Adult Goal: Free from fall injury Outcome: Progressing Problem: Discharge Planning Goal: Discharge to home or other facility with appropriate resources Outcome: Progressing Flowsheets (Taken 01/27/2023711) Discharge to home or other facility with appropriate resources: Identify barriers to discharge with patient and caregiver Normal [facility] APTTon 01-27-2023 ACTIVATED PARTIAL THROMBOPLASTIN TIME IN PPP BY COAGULATION ASSAY 113.7 Seconds High 25.0-35.0 [facility] Comment on above: Result Comment: Clin ical significance of the APTT is questionable in the presence of heparin. Performed By: #### L [id number] ####[facility] ([facility])[address] [place] [address] BASIC METABOLIC PANELon - Anion gap [Moles/Vol] 13 mmol/L Normal 7-20 [facility] Comment on above: Performed By: #### L [id number] ####[facility] ([facility])[address] [place] [address] Calcium [Mass/Vol] 9.4 mg/dL Normal 8.6-10.3 [facility] Comment on above: Performed By: #### L [id number] ####[facility] [place] [address] Chloride [Moles/Vol] 106 mmol/L Normal 98-107 [facility] Comment on above: Performed By: #### L [id number] ####[facility] ([facility])[address] [place] [address] CO2 [Moles/Vol] 26 mmol/L Normal 21-31 [facility] Comment on above: Performed By: #### L [id number] ####[facility] ([facility])[address] [place] [address] Creatinine [Mass/Vol] 1.71 mg/dL High 0.70-1.30 [facility] Comment on above: Performed By: #### L [id number] ####[facility] ([facility])[address] [place] [address] GLOMERULAR FILTRATION RATE ML/MIN/1.73 SQ M.PREDICTED 42.3 mL/min/1.73m*2 Low >60.0 [facility] Comment on above: Result Comment: [facility]???s estimated glomerular filtration rate (eGFR) [...] individuals. Performed By: #### L [id number] ####[facility] [place] [address] Glucose [Mass/Vol] 155 mg/dL High 70-100 [facility] Comment on above: Performed By: #### L [id number] ####[facility] ([facility])[address] [place] [address] Potassium [Moles/Vol] 4.1 mmol/L Normal 3.5-5.[address] [facility] Comment on above: Performed By: #### L [id number] ####[facility] ([facility])[address] [place] [address] Sodium [Moles/Vol] 141 mmol/L Normal 136-145 [facility] Comment on above: Performed By: #### L [id number] ####[facility] ([facility])[address] [place] [address] Urea nitrogen [Mass/Vol] 31 mg/dL High 7-25 [facility] Comment on above: Performed By: #### L [id number] ####[facility] ([facility])[address] [place] [address] UREA NITROGEN/CREATININE (MASS RATIO) IN SER/PLAS 18.1 Normal [facility] Comment on above: Performed By: #### L [id number] ####[facility] [place] [address] POCT GLUCOSE METER UNSOLICIT ED RESULTSon 01-27-2023 Glucose [Mass/Vol] 145 mg/dL High 70-105 [facility] Comment on above: Order Comment: Waive d Testing in the ED is performed under the ED CLIA certificate #[id number]. Result Comment: [email or web address] Performed By: #### L [id number] ####[facility] [place] [address] Glucose [Mass/Vol] 195 mg/dL High 70-105 [facility] Comment on above: Order Comment: Waive d Testing in the ED is performed under the ED CLIA certificate #[id number]. Result Comment: [email or web address] Performed By: #### L [id number] ####[facility] ([facility])[address] [place] [address] 30on 01-26-2023 30 The patient is Moder ately Stable - Low risk of patient condition declining or worsening The patient's goals for the shift include comfort The clinical goals for the shift include VSS, safety Problem: Safety - Adult Goal: Free from fall injury Outcome: Progressing Flowsheets (Taken 01/26/20231999) Free from fall injury: Assess patient frequently for physical needs [facility] 30 The patient is Moder ately Stable [...] appropriate resources Outcome: Progressing Flowsheets (Taken 01/26/2023 07) Discharge to home or other facility with appropriate resources: Identify barriers to discharge with patient and caregiver [facility] 30 The patient is Moder ately Stable - Low risk of patient condition declining or worsening The patient's goals for the shift include rest The clinical goals for the shift include VSS, cath site stable [facility] APTTon 01-26-2023 ACTIVATED PARTIAL THROMBOPLASTIN TIME IN PPP BY COAGULATION ASSAY 80.8 Seconds High 25.0-35.0 [facility] Comment on above: Result Comment: Clin ical significance of the APTT is questionable in the presence of heparin. Performed By: #### L AB15 #### [facility] [facility] [address] [place] [address] ACTIVATED PARTIAL THROMBOPLASTIN TIME IN PPP BY COAGULATION ASSAY 30.4 Seconds Normal 25.0-35.0 [facility] Comment on above: Order Comment: Check aPTT every 6 hours while on heparin infusion, or per protocol. Result Comment: Clin ical significance of the APTT is questionable in the presence of heparin. Performed By: #### L [id number] #### [facility] [address] [place] [address] ACTIVATED PARTIAL THROMBOPLASTIN TIME IN PPP BY COAGULATION ASSAY 30.3 Seconds Normal 25.0-35.0 [facility] Comment on above: Order Comment: Check aPTT every 6 hours while on heparin infusion, or per protocol. Result Comment: Clin ical significance of the APTT is questionable in the presence of heparin. Performed By: #### L [id number] #### [facility] ([facility]) [address] [place] [address] BASIC METABOLIC PANELon 10-2 Anion gap [Moles/Vol] 13 mmol/L Normal 7-20 [facility] Comment on above: Performed By: #### L [id number] #### [facility] ([facility]) [address] [place] [address] Calcium [Mass/Vol] 9.1 mg/dL Normal 8.6-10.3 [facility] Comment on above: Performed By: #### L [id number] #### [facility] ([facility]) [address] [place] [address] Chloride [Moles/Vol] 107 mmol/L Normal 98-107 [facility] Comment on above: Performed By: #### L [id number] #### [facility] ([facility]) [address] [place] [address] CO2 [Moles/Vol] 22 mmol/L Normal 21-31 [facility] Comment on above: Performed By: #### L [id number] #### [facility] ([facility]) [address] [place] [address] Creatinine [Mass/Vol] 1.77 mg/dL High 0.70-1.30 [facility] Comment on above: Performed By: #### L [id number] #### [facility] ([facility]) [address] [place] [address] GLOMERULAR FILTRATION RATE ML/MIN/1.73 SQ M.PREDICTED 40.6 mL/min/1.73m*2 Low >60.0 [facility] Comment on above: Result Comment: [facility]???s estimated glomerular filtration rate (eGFR) [...] Performed By: #### L [id number] #### [facility] ([facility]) [address] [place] [address] Glucose [Mass/Vol] 125 mg/dL High 70-100 [facility] Comment on above: Performed By: #### L [id number] #### [facility] ([facility]) [address] [place] [address] Potassium [Moles/Vol] 4.2 mmol/L Normal 3.5-5.[address] [facility] Comment on above: Performed By: #### L [id number] #### [facility] ([facility]) [address] [place] [address] Sodium [Moles/Vol] 138 mmol/L Normal 136-145 [facility] Comment on above: Performed By: #### L [id number] #### [facility] ([facility]) [address] [place] [address] Urea nitrogen [Mass/Vol] 27 mg/dL High 7-25 [facility] Comment on above: Performed By: #### L [id number] #### [facility] ([facility]) [address] [place] [address] UREA NITROGEN/CREATININE (MASS RATIO) IN SER/PLAS 15.3 Normal [facility] Comment on above: Performed By: #### L [id number] #### [facility] ([facility]) [address] [place] [address] CBCon 01-26-2023 Erythrocyte distribution width (RBC) [Ratio] 13.2 % Normal 11.5-15.0 [facility] Comment on above: Performed By: #### L [id number] #### [facility] ([facility]) [address] [place] [address] ERYTHROCYTE MEAN CORPUSCULAR HEMOGLOBIN CONCENTRATION (G/DL) BY AUTOMATED 34.3 g/dL Normal 32.0-35.0 [facility] Comment on above: Performed By: #### L [id number] #### [facility] ([facility]) [address] [place] [address] Hematocrit (Bld) [Volume fraction] 42.0 % Normal 39.0-55.0 [facility] Comment on above: Performed By: #### L [id number] #### [facility] ([facility]) [address] [place] [address] Hemoglobin (Bld) [Mass/Vol] 14.4 g/dL Normal 13.0-17.0 [facility] Comment on above: Performed By: #### L [id number] #### [facility] ([facility]) [address] [place] [address] MCH (RBC) [Entitic mass] 31.0 pg Normal 27.0-33.0 [facility] Comment on above: Performed By: #### L [id number] #### [facility] ([facility]) [address] [place] [address] MCV (RBC) [Entitic vol] 90.3 fL Normal 82.0-98.0 [facility] Comment on above: Performed By: #### L [id number] #### [facility] ([facility]) [address] [place] [address] PLATELETS (10*3/UL) IN BLOOD AUTOMATED COUNT 163 10*3/uL Normal 150-400 [facility] Comment on above: Performed By: #### L [id number] #### [facility] ([facility]) [address] [place] [address] RBC (Bld) [#/Vol] 4.65 10*6/uL Normal 4.20-5.70 [facility] Comment on above: Performed By: #### L [id number] #### [facility] ([facility]) [address] [place] [address] WBC (Bld) [#/Vol] 8.72 10*3/uL Normal 4.00-10.60 [facility] Comment on above: Performed By: #### L [id number] #### [facility] ([facility]) [address] [place] [address] POCT GLUCOSE METER UNSOLICIT ED RESULTSon 01-26-2023 Glucose [Mass/Vol] 155 mg/dL High 70-105 [facility] Comment on above: Order Comment: Waive d Testing in the ED is performed under the ED CLIA certificate #[id number]. Result Comment: [email or web address] Performed By: #### L [id number] ####[facility] ([facility])[address] [place] [address] Glucose [Mass/Vol] 120 mg/dL High 70-105 [facility] Comment on above: Order Comment: Waive d Testing in the ED is performed under the ED CLIA certificate #[id number]. Result Comment: [email or web address] Performed By: #### L [id number] #### [facility] ([facility]) [address] [place] [address] Glucose [Mass/Vol] 155 mg/dL High 70-105 [facility] Comment on above: Order Comment: Waive d Testing in the ED is performed under the ED CLIA certificate #[id number]. Result Comment: [email or web address] Performed By: #### L [id number] ####[facility] ([facility])[address] [place] [address] 30on 01-25-2023 30 The patient is Moder [...] to discharge with patient and caregiver Normal [facility] ANTI-XA (HEPARIN LEVEL)on HEPARIN UNFRACTIONATED (U/ML) IN PPP BY CHROMOGENIC METHOD 0.88 IU/mL High 0.3-0.7 [facility] Comment on above: Order Comment: Anti- Xa (Heparin level) added per protocol. Result Comment: Rhona roxaban and Apixaban will interfere with the anti Xa assay used to monitor UFH and LMWH. Performed By: #### L [id number] ####[facility] ([facility])[address] [place] [address] APTTon 01-25-2023 ACTIVATED PARTIAL THROMBOPLASTIN TIME IN PPP BY COAGULATION ASSAY 153.8 Seconds Critically high 25.0-35.0 [facility] Comment on above: Order Comment: Check aPTT every 6 hours while on heparin infusion, or per protocol. Result Comment: Clin ical significance of the APTT is questionable in the presence of heparin. Performed By: #### L [id number] #### [facility] ([facility]) [address] [place] [address] B-TYPE NATRIURETIC PEPTIDEon 01-25-2023 Natriuretic peptide B (Bld) [Mass/Vol] 579 pg/mL High 0-100 [facility] Comment on above: Performed By: #### L [id number] #### [facility] ([facility]) [address] [place] [address] BASIC METABOLIC PANELon 12-31 Anion gap [Moles/Vol] 15 mmol/L Normal 7-20 [facility] Comment on above: Performed By: #### L [id number] #### [facility] ([facility]) [address] [place] [address] Calcium [Mass/Vol] 9.6 mg/dL Normal 8.6-10.3 [facility] Comment on above: Performed By: #### L [id number] #### [facility]) [address] [place] [address] Chloride [Moles/Vol] 103 mmol/L Normal 98-107 [facility] Comment on above: Performed By: #### L [id number] #### [facility] [address] [place] [address] CO2 [Moles/Vol] 27 mmol/L Normal 21-31 [facility] Comment on above: Performed By: #### L [id number] #### [facility] ([facility]) [address] [place] [address] Creatinine [Mass/Vol] 1.83 mg/dL High 0.70-1.30 [facility] Comment on above: Performed By: #### L [id number] #### [facility] ([facility]) [address] [place] [address] GLOMERULAR FILTRATION RATE ML/MIN/1.73 SQ M.PREDICTED 39.0 mL/min/1.73m*2 Low >60.0 [facility] Comment on above: Result Comment: [facility]???s estimated glomerular filtration rate (eGFR) [...] Performed By: #### L [id number] #### [facility] [address] [place] [address] Glucose [Mass/Vol] 168 mg/dL High 70-100 [facility] Comment on above: Performed By: #### L [id number] #### [facility] [address] [place] [address] Potassium [Moles/Vol] 4.7 mmol/L Normal 3.5-5.[address] [facility] Comment on above: Performed By: #### L [id number] #### [facility] [address] [place] [address] Sodium [Moles/Vol] 140 mmol/L Normal 136-145 [facility] Comment on above: Performed By: #### L [id number] #### [facility] [address] [place] [address] Urea nitrogen [Mass/Vol] 28 mg/dL High 7-25 [facility] Comment on above: Performed By: #### L [id number] #### [facility] ([facility]) [address] [place] [address] UREA NITROGEN/CREATININE (MASS RATIO) IN SER/PLAS 15.3 Normal [facility] Comment on above: Performed By: #### L [id number] #### [facility] ([facility]) [address] [place] [address] CBCon 01-25-2023 Erythrocyte distribution width (RBC) [Ratio] 13.1 % Normal 11.5-15.0 [facility] Comment on above: Performed By: #### L [id number] ####[facility] [place] [address] ERYTHROCYTE MEAN CORPUSCULAR HEMOGLOBIN CONCENTRATION (G/DL) BY AUTOMATED 33.7 g/dL Normal 32.0-35.0 [facility] Comment on above: Performed By: #### L [id number] ####[facility] [place] [address] Hematocrit (Bld) [Volume fraction] 46.3 % Normal 39.0-55.0 [facility] Comment on above: Performed By: #### L [id number] ####[facility] ([facility])[address] [place] [address] Hemoglobin (Bld) [Mass/Vol] 15.6 g/dL Normal 13.0-17.0 [facility] Comment on above: Performed By: #### L [id number] ####[facility] ([facility])[address] [place] [address] MCH (RBC) [Entitic mass] 30.7 pg Normal 27.0-33.0 [facility] Comment on above: Performed By: #### L [id number] ####[facility] [place] [address] MCV (RBC) [Entitic vol] 91.1 fL Normal 82.0-98.0 [facility] Comment on above: Performed By: #### L [id number] ####[facility] [place] [address] PLATELETS (10*3/UL) IN BLOOD AUTOMATED COUNT 185 10*3/uL Normal 150-400 [facility] Comment on above: Performed By: #### L [id number] ####[facility] ([facility])[address] [place] [address] RBC (Bld) [#/Vol] 5.08 10*6/uL Normal 4.20-5.70 [facility] Comment on above: Performed By: #### L [id number] ####[facility] [place] [address] WBC (Bld) [#/Vol] 8.91 10*3/uL Normal 4.00-10.60 [facility] Comment on above: Performed By: #### L [id number] ####[facility] [place] [address] CONSULTon 01-25-2023 CONSULT ------ -- Attestation signed [...] y.o. male was a direct transfer from [facility], the patient is known to have coronary [...] artery stenosis, Coronary artery disease, Diabetes mellitus ([facility]), Hyperlipidemia, Hypertension, PVD (peripheral vascular disease) ([facility]), and Third degree heart block ([facility]). Surgical History He has a past [...] mg by mouth in the morning. HYDROcodone-acetaminophen (Ranchita) 5-325 mg tablet TAKE 1 TABLET BY [...] 93 10 (more content not included)... Normal [facility] HPon 01-25-2023 HP H&P reviewed. The jaron mark was examined and there are no changes to the H&P. 72 y.o. male was a direct transfer from [facility], the patient is known to have Coronary artery disease s/p CABG and multiple PCI in the past, PAD, hyperlipidemia, hypertension. The patient has been having worsening chest pain for the last 2 months which got much worse yesterday, the patient went to the ER his troponin was positive he was referred for further evaluation management to [facility]. The patient had coronary angiography and December 2021 showed patent LAD/MENJIVAR graft, patent SVG to OM and PDA. Patient will undergo LHC to evaluate CAD and look for patency of grafts and previously placed stents. Risks and benefits were discussed in detail with patient and agreed to proceed. Normal [facility] PLATELET COUNTon 01-25-2023 PLATELETS (10*3/UL) IN BLOOD AUTOMATED COUNT 183 10*3/uL Normal 150-400 [facility] Comment on above: Performed By: #### L [id number] #### [facility]) [address] [place] [address] POCT GLUCOSE METER UNSOLICIT ED RESULTSon 01-25-2023 Glucose [Mass/Vol] 211 mg/dL High 70-105 [facility] Comment on above: Order Comment: Waive d Testing in the ED is performed under the ED CLIA certificate #[id number]. Result Comment: [email or web address] Performed By: #### L [id number] #### [facility] ([facility]) [address] [place] [address] Glucose [Mass/Vol] 143 mg/dL High 70-105 [facility] Comment on above: Order Comment: Waive d Testing in the ED is performed under the ED CLIA certificate #[id number]. Result Comment: [email or web address] Performed By: #### L [id number] #### [facility] ([facility]) [address] [place] [address] TROPONIN Ion 01-25-2023 Troponin I.cardiac [Mass/Vol] 1.75 ng/mL Critically high 0.00-0.04 [facility] Comment on above: Result Comment: ADILIA BRYANT INITIAL CRITICAL HIGH; RESPUN AND RETESTED Performed By: #### L [id number] #### [facility] ([facility]) [address] [place] [address] Office Visiton 01-17-2023 Follow-up visit [id number] Lani Lizama 1950 [facility] Provider Department [place] 01/17/2023 PINKY JULES MARCELINO [facility] Family History Problem Relation Age of Onset Heart attack Mother Other Father Other Brother Heart attack Maternal Grandmother Heart attack Maternal Grandfather Family Status - Relation Status Age at Mother Father Brother Maternal Grandmother Maternal Grandfather Level of Service:21162 [place] OFFICE/OUTPATIENT ESTABLISHED MOD MDM 30-39 MIN Normal [facility] Office Visiton 10-09-2022 Follow-up visit [id number] Lani Lizama 1950 [facility] Provider Department [place] 10/09/2022 [id number] SAAVEDRA CARD [facility] Family History Problem Relation Age of Onset Heart attack Mother Other Father Other Brother Heart attack Maternal Grandmother Heart attack Maternal Grandfather Family Status - Relation Status Age at Mother Father Brother Maternal Grandmother Maternal Grandfather Level of Service:32910 [place] OFFICE/OUTPATIENT ESTABLISHED MOD MDM 30-39 MIN Normal [facility] CT CHEST WO CONon 08-09-2022 CT CHEST [...] by: HAZEL SCHILLING Date: 2022-08-09 14:00 Normal [facility] Office Visiton 07-24-2022 Follow-up visit [id number] Lani Lizama 1950 Date Provider Department Center 07/24/2022 [id number] [facility] Family History Problem Relation Age of Onset Heart attack Mother Other Father Other Brother Heart attack Maternal Grandmother Heart attack Maternal Grandfather Family Status - Relation Status Age at Mother Father Brother Maternal Grandmother Maternal Grandfather Level of Service:68532 [place] OFFICE/OUTPATIENT ESTABLISHED MOD MDM 30-39 MIN Reason for Visit and Comments: Hypertension [835741] Coronary Artery Disease [187] Normal [facility] A1C HEMOGLOBINon 06-26-2022 HbA1c (Bld) [Mass fraction] 7.4 % [employer] Other Glucose - FINGER STICKon 03- 28-2023 Glucose [Mass/Vol] 267 mg/dL [employer] Other HbA1c (Bld) [Mass fraction]o n 06-26-2022 A1C HEMOGLOBIN CV [employer] Other PTH INTACTon 06-26-2022 PTH, Intact 37 pg/mL Normal 15-65 [facility] Comment on above: Performed By: #### C MP, CMADM #### [facility] [address] [place] [address] [address] Mirza Sadler 37on 06-25-2022 37 -Increase Carvedilol to 12.5 mg twice a day. Take two pills of current medication, -Check blood pressure at least once a day and bring log to follow-up -Bring blood pressure monitor to follow-up appointment Normal [facility] FERRITINon 06-25-2022 Ferritin [Mass/Vol] 269.0 ng/mL Normal 26.0-388.0 [facility] Comment on above: Performed By: #### B BATCH DUMPER #### [facility] [address] [address] [address] Mirza Sadler HEMOGRAM AND PLATELon 2022 Hematocrit (Bld) [Volume fraction] 44.7 % Normal 42.0-54.0 [facility] Comment on above: Performed By: #### P T, PTT #### [facility] [address] [address] [address] Mirza Sadler Hemoglobin (Bld) [Mass/Vol] 15.1 g/dL Normal 14.0-18.0 [facility] Comment on above: Performed By: #### P T, PTT #### [facility] [address] [place] [address] Dr. Mirza Sadler MCH (RBC) [Entitic mass] 30.0 pg Normal 25.9-34.0 [facility] Comment on above: Performed By: #### P T, PTT #### [facility] [address] [place] [address] Dr. Mirza Sadler MCHC (RBC) [Mass/Vol] 33.8 g/dL Normal 29.9-35.2 [facility] Comment on above: Performed By: #### P T, PTT #### [facility] [address] [place] [address] Dr. Mirza Sadler MCV (RBC) [Entitic vol] 88.9 fL Normal 80.0-94.0 [facility] Comment on above: Performed By: #### P T, PTT #### [facility] [address] [place] [address] Dr. Mirza Sadler PLT 199 103/ul Normal 150-450 [facility] Comment on above: Performed By: #### P T, PTT #### [facility] [address] [place] [address] Dr. Mirza Sadler RBC 5.03 106/ul Normal 4.70-6.10 [facility] Comment on above: Performed By: #### P T, PTT #### [facility] [address] [place] [address] Dr. Mirza Sadler WBC 8.7 103/ul Normal 4.0-11.0 [facility] Comment on above: Performed By: #### P T, PTT #### [facility] [address] [place] [address] Dr. Mirza Sadler IRON AND TIBCon 06-25-2022 % SATURATION 28.6 % Normal [facility] Comment on above: Performed By: #### B BATCH DUMPER #### [facility] [address] [place] [address] Dr. Mirza Sadler Iron [Mass/Vol] 82.0 ug/dL Normal 65.0-175.0 [facility] Comment on above: Performed By: #### B BATCH DUMPER #### [facility] [address] [place] [address] Dr. Mirza Sadler TIBC DIRECT 287.0 ug/dL Normal 250.0-450. 0 [facility] Comment on above: Performed By: #### B BATCH DUMPER #### [facility] [address] [place] [address] Dr. Mirza Sadler MAGNESIUMon 06-25-2022 Magnesium [Mass/Vol] 2.0 mg/dL Normal 1.8-2.4 [facility] Comment on above: Performed By: #### B BATCH DUMPER #### [facility] [address] [address] [address] Mirza Sadler Office Visiton 06-25-2022 Follow-up visit [id number] Lani Lizama 1950 M Date Provider Department Center 06/25/2022 DEISY SCHWARTZ CARD [facility] Family History Problem Relation Age of Onset Heart attack Mother Other Father Other Brother Heart attack Maternal Grandmother Heart attack Maternal Grandfather Family Status - Relation Status Age at Mother Father Brother Maternal Grandmother Maternal Grandfather Level of Service:65622 [place] OFFICE/OUTPATIENT ESTABLISHED MOD MDM 30-39 MIN Reason for Visit and Comments: Chest Pain [202940] Coronary Artery Disease [187] Normal [facility] RENAL FUNCTION PANELon 06-25 Albumin [Mass/Vol] 4.2 g/dL Normal 3.4-5.0 [facility] Comment on above: Performed By: #### B BATCH DUMPER #### [facility] [address] [place] [address] Dr. Mirza Sadler Calcium [Mass/Vol] 9.3 mg/dL Normal 8.5-10.1 [facility] Comment on above: Performed By: #### B BATCH DUMPER #### [facility] [address] [place] [address] Dr. Mirza Sadler Chloride [Moles/Vol] 108 mmol/L Critically high 98-107 [facility] Comment on above: Performed By: #### B BATCH DUMPER #### [facility] [address] [place] [address] Dr. Mirza Sadler CO2 [Moles/Vol] 29.5 mmol/L Normal 21.0-32.0 [facility] Comment on above: Performed By: #### B BATCH DUMPER #### [facility] [address] [place] [address] Dr. Mirza Sadler Creatinine [Mass/Vol] 1.87 mg/dL Critically high 0.70-1.30 [facility] Comment on above: Performed By: #### B BATCH DUMPER #### [facility] [address] [address] [address] Mirza Sadler EGFR-AF SPANISH 43 mL/min/1.73m2 Critically low >=60 [facility] Comment on above: Performed By: #### B BATCH DUMPER #### [facility] [address] [address] [address] Mirza Sadler EGFR-NON AF SPANISH 36 mL/min/1.73m2 Critically low >=60 [facility] Comment on above: Performed By: #### B BATCH DUMPER #### [facility] [address] [address] [address] Mirza Sadler Glucose [Mass/Vol] 181 mg/dL Critically high 74-106 [facility] Comment on above: Performed By: #### B BATCH DUMPER #### [facility] [address] [place] [address] Dr. Mirza Sadler Phosphate [Mass/Vol] 4.8 mg/dL Critically high 2.6-4.7 [facility] Comment on above: Performed By: #### B BATCH DUMPER #### [facility] [address] [place] [address] Dr. Mirza Sadler Potassium [Moles/Vol] 4.8 mmol/L Normal 3.5-5.1 [facility] Comment on above: Performed By: #### B BATCH DUMPER #### [facility] [facility] [address] [address] [address] Mirza Sadler Sodium [Moles/Vol] 146 mmol/L Critically high 136-145 [facility] Comment on above: Performed By: #### B BATCH DUMPER #### [facility] [address] [address] [address] Mirza Sadler Urea nitrogen [Mass/Vol] 40.0 mg/dL Critically high 7.0-18.0 [facility] Comment on above: Performed By: #### B BATCH DUMPER #### [facility] [address] [place] [address] Dr. Mirza Sadler UA RANDOM W/MICROSCOPICon BACTERIA NONE SEEN Normal NONE SEEN [facility] Comment on above: Performed By: #### H STROPN #### [facility] [address] [place] [address] Dr. Mirza Sadler Bilirubin Ql (U) Negative Normal NEGATIVE [facility] Comment on above: Performed By: #### H STROPN #### [facility] [address] [place] [address] Dr. Mirza Sadler CAST NONE SEEN Normal NONE SEEN [facility] Comment on above: Performed By: #### H STROPN #### [facility] [address] [place] [address] Dr. Mirza Sadler Clarity (U) CLEAR Normal CLEAR [facility] Comment on above: Performed By: #### H STROPN #### [facility] [address] [place] [address] Dr. Mirza Sadler Color (U) LT. YELLOW Normal YELLOW [facility] Comment on above: Performed By: #### H STROPN #### [facility] [address] [place] [address] Dr. Mirza Sadler Crystals LM Nom (Urine sed) NONE SEEN Normal NONE SEEN [facility] Comment on above: Performed By: #### H STROPN #### [facility] [address] [place] [address] Dr. Mirza Sadler Epithelial cells LM Ql (Urine sed) FEW Abnormal NONE SEEN /RARE [facility] Comment on above: Performed By: #### H STROPN #### [facility] [address] [place] [address] Dr. Mirza Sadler Glucose Ql (U) 500 mg/dl Abnormal NEGATIVE [facility] Comment on above: Performed By: #### H STROPN #### [facility] [address] [place] [address] Dr. Mirza Sadler Hemoglobin Ql (U) Negative Normal NEGATIVE [facility] Comment on above: Performed By: #### H STROPN #### [facility] [address] [place] [address] Dr. Mirza Sadler Ketones Ql (U) Negative Normal NEGATIVE [facility] Comment on above: Performed By: #### H STROPN #### [facility] [address] [place] [address] Dr. Mirza Sadler LEUKOCYTES Negative Normal NEGATIVE [facility] Comment on above: Performed By: #### H STROPN #### [facility] [address] [address] [address] Mirza Sadler MUCOUS NONE SEEN Normal NONE SEEN [facility] Comment on above: Performed By: #### H STROPN #### [facility] [address] [place] [address] Dr. Mirza Sadler Nitrite Ql (U) Negative Normal NEGATIVE [facility] Comment on above: Performed By: #### H STROPN #### [facility] [address] [place] [address] Dr. Mirza Sadler pH (U) 5.5 [pH] Normal 5-9 [facility] Comment on above: Performed By: #### H STROPN #### [facility] [address] [place] [address] Dr. Mirza Sadler RBC 0-2 Normal 0-2 [facility] Comment on above: Performed By: #### H STROPN #### [facility] [address] [place] [address] Dr. Mirza Sadler SPEC GRAVITY 1.015 Normal 1.005-<=1. 025 [facility] Comment on above: Performed By: #### H STROPN #### [facility] [address] [place] [address] Dr. Mirza Sadler UA PROTEIN Negative Normal NEGATIVE/ TRACE [facility] Comment on above: Performed By: #### H STROPN #### [facility] [address] [place] [address] Dr. Mirza Sadler Urobilinogen Qn (U) 0.2 {Luisito'U}/dL Normal 0.2 - 1. 0 [facility] Comment on above: Performed By: #### H STROPN #### [facility] [address] [place] [address] Dr. Mirza Sadler WBC NONE SEEN Normal NONE SEEN [facility] Comment on above: Performed By: #### H STROPN #### [facility] [address] [place] [address] Dr. Mirza Sadler URIC ACID SERUMon 06-25-2022 Urate [Mass/Vol] 6.1 mg/dL Normal 3.5-7.2 [facility] Comment on above: Performed By: #### B BATCH DUMPER #### [facility] [address] [place] [address] Dr. Mirza Sadler URINE T PROTEIN CREAT RATIOo n 06-25-2022 Protein (U) [Mass/Vol] 9.7 mg/dL Normal <=12.0 [facility] Comment on above: Performed By: #### C TANIA, CMADM #### [facility] [address] [place] [address] Dr. Mirza Sadler UR PROT CREAT RAT 0.14 Normal [facility] Comment on above: Performed By: #### C TANIA, CMADM #### [facility] [address] [place] [address] Dr. Mirza Sadler URINE CREAT 71.45 mg/dL Normal 20.00-300. 00 [facility] Comment on above: Performed By: #### C TANIA, CMADM #### [facility] [address] [place] [address] Dr. Mirza Sadler VITAMIN D 25 OHon 06-25-2022 VIT D 25-OH 44.7 ng/mL Normal [facility] Comment on above: Performed By: #### E RUR #### [facility] [address] [place] [address] Dr. Mirza Sadler VIT D RANGES SEE BELOW Normal [facility] Comment on above: Result Comment: <20 ng/mL Vit D deficient 20 - <30 ng/mL Vit D insufficient 30 - 100 ng/mL Vit D sufficient >100 ng/mL Potential Toxicity Performed By: #### E RUR #### [facility] [address] [place] [address] Dr. Mirza Sadler LIPID PROFILEon 06-18-2022 CHOL-HDL RATIO NORM SEE BELOW Normal [facility] Comment on above: Result Comment: 3.3 - 4.4 LOW RISK 4.4 - 7.1 AVERAGE RISK 7.1 - 11.0 MODERATE RISK >11.0 HIGH RISK Performed By: #### H STROPN #### [facility] [address] [address] [address] Mirza Sadler Cholesterol [Mass/Vol] 136 mg/dL Normal <=200 [facility] Comment on above: Performed By: #### H STROPN #### [facility] [address] [address] [address] Mirza Sadler Cholesterol in HDL [Mass/Vol] 38 mg/dL Critically low 40-60 [facility] Comment on above: Performed By: #### H STROPN #### [facility] [address] [address] [address] Mirza Sadler Cholesterol in LDL [Mass/Vol] 69.6 mg/dL Normal [facility] Comment on above: Performed By: #### H STROPN #### [facility] [address] [address] [address] Mirza Sadler Cholesterol.total/Cho lesterol in HDL [Mass ratio] 3.6 {ratio} Normal [facility] Comment on above: Performed By: #### H STROPN #### [facility] [address] [address] [address] Mirza Sadler HDL NORMAL > or = 60 mg/dl - LO W CARDIOVASCULAR RISK <40 mg/dl - HIGH CARDIOVASCULAR RISK Normal [facility] Comment on above: Performed By: #### H STROPN #### [facility] [address] [address] [address] Miraz Sadler LDL CALC NORMAL SEE BELOW Normal [facility] Comment on above: Result Comment: <100 mg/dl OPTIMAL 100 - 129 mg/dl NEAR OR ABOVE OPTIMAL 130 - 159 mg/dl BORDERLINE HIGH 160 - 189 mg/dl HIGH >190 mg/dl VERY HIGH Performed By: #### H STROPN #### [facility] [address] [address] [address] Mirza Sadler Triglyceride [Mass/Vol] 142 mg/dL Normal <=150 [facility] Comment on above: Performed By: #### H STROPN #### [facility] [address] [address] [address] Mirza Sadler VLDL CALC 28.4 mg/dL Normal [facility] Comment on above: Performed By: #### H STROPN #### [facility] [address] [place] [address] CHEST WO CONon [...] by: HIGINIO FLANAGAN Date: 2022-06-05 16:58 Normal [facility] CT CHEST WO CON [facility] [facility] Other PROF CHEM 8 (BAS METB)on Anion gap [Moles/Vol] 10.2 mmol/L Normal [facility] Comment on above: Performed By: #### B BATCH DUMPER #### [facility] [address] [place] [address] [address] [address] Mirza Sadler Calcium [Mass/Vol] 8.9 mg/dL Normal 8.5-10.1 [facility] Comment on above: Performed By: #### B BATCH DUMPER #### [facility] [address] [place] [address] [address] [address] Mirza Sadler Chloride [Moles/Vol] 101 mmol/L Normal 98-107 [facility] Comment on above: Performed By: #### B BATCH DUMPER #### [facility] [address] [place] [address] Dr. Mirza Sadler CO2 [Moles/Vol] 31.2 mmol/L Normal 21.0-32.0 [facility] Comment on above: Performed By: #### B BATCH DUMPER #### [facility] [address] [place] [address] Dr. Mirza Sadler Creatinine [Mass/Vol] 1.91 mg/dL Critically high 0.70-1.30 [facility] Comment on above: Performed By: #### B BATCH DUMPER #### [facility] [address] [place] [address] Dr. Mirza Sadler EGFR-AF SPANISH 42 mL/min/1.73m2 Critically low >=60 [facility] Comment on above: Performed By: #### B BATCH DUMPER #### [facility] [address] [place] [address] Dr. Mirza Sadler EGFR-NON AF SPANISH 35 mL/min/1.73m2 Critically low >=60 [facility] Comment on above: Performed By: #### B BATCH DUMPER #### [facility] [address] [place] [address] Dr. Mirza Sadler Glucose [Mass/Vol] 242 mg/dL Critically high 74-106 [facility] Comment on above: Performed By: #### B BATCH DUMPER #### [facility] [address] [place] [address] Dr. Mirza Sadler Potassium [Moles/Vol] 4.4 mmol/L Normal 3.5-5.1 [facility] Comment on above: Performed By: #### B BATCH DUMPER #### [facility] [address] [place] [address] Dr. Mirza Sadler Sodium [Moles/Vol] 138 mmol/L Normal 136-145 [facility] Comment on above: Performed By: #### B BATCH DUMPER #### [facility] [address] [place] [address] Dr. Mirza Sadler Urea nitrogen [Mass/Vol] 33.0 mg/dL Critically high 7.0-18.0 [facility] Comment on above: Performed By: #### B BATCH DUMPER #### [facility] [address] [place] [address] Dr. Mirza Sadler Urea nitrogen/Creatinine [Mass ratio] 17.3 mg/mg Normal [facility] Comment on above: Performed By: #### B BATCH DUMPER #### [facility] [address] [place] [address] Dr. Mirza Sadler PROF CHEM 8 (BAS METB)on Anion gap [Moles/Vol] 10.7 mmol/L Normal [facility] Comment on above: Performed By: #### P T, PTT #### [facility] [address] [place] [address] Dr. Mirza Sadler Calcium [Mass/Vol] 8.9 mg/dL Normal 8.5-10.1 [facility] Comment on above: Performed By: #### P T, PTT #### [facility] [address] [place] [address] Dr. Mirza Sadler Chloride [Moles/Vol] 104 mmol/L Normal 98-107 [facility] Comment on above: Performed By: #### P T, PTT #### [facility] [address] [place] [address] Dr. Mirza Sadler CO2 [Moles/Vol] 29.4 mmol/L Normal 21.0-32.0 [facility] Comment on above: Performed By: #### P T, PTT #### [facility] [address] [place] [address] Dr. Mirza Sadler Creatinine [Mass/Vol] 1.75 mg/dL Critically high 0.70-1.30 [facility] Comment on above: Performed By: #### P T, PTT #### [facility] [address] [place] [address] Dr. Mirza Sadler EGFR-AF SPANISH 47 mL/min/1.73m2 Critically low >=60 [facility] Comment on above: Performed By: #### P T, PTT #### [facility] [address] [place] [address] Dr. Mirza Sadler EGFR-NON AF SPANISH 39 mL/min/1.73m2 Critically low >=60 [facility] Comment on above: Performed By: #### P T, PTT #### [facility] [address] [address] [address] Mirza Sadler Glucose [Mass/Vol] 191 mg/dL Critically high 74-106 [facility] Comment on above: Performed By: #### P T, PTT #### [facility] [address] [address] [address] Mirza Sadler Potassium [Moles/Vol] 4.1 mmol/L Normal 3.5-5.1 [facility] Comment on above: Performed By: #### P T, PTT #### [facility] [address] [address] [address] Mirza Sadler Sodium [Moles/Vol] 140 mmol/L Normal 136-145 [facility] Comment on above: Performed By: #### P T, PTT #### [facility] [address] [address] [address] Mirza Sadler Urea nitrogen [Mass/Vol] 31.0 mg/dL Critically high 7.0-18.0 [facility] Comment on above: Performed By: #### P T, PTT #### [facility] [address] [address] [address] Mirza Sadler Urea nitrogen/Creatinine [Mass ratio] 17.7 mg/mg Normal [facility] Comment on above: Performed By: #### P T, PTT #### [facility] [address] [address] [address] Mirza Sadler XR CHEST 2 Von [...] by: HIGINIO FLANAGAN Date: 2022-03-22 16:12 Normal [facility] A1C HEMOGLOBINon 03-20-2022 HbA1c (Bld) [Mass fraction] 6.7 % [employer] Other Glucose - FINGER STICKon Glucose [Mass/Vol] 193 mg/dL [employer] Other HbA1c (Bld) [Mass fraction]o n 03-20-[address] [facility] [employer] Other BNPon 03-13-2022 Natriuretic peptide B (Bld) [Mass/Vol] 4825.0 pg/mL Critically high <=900.0 [facility] Comment on above: Performed By: #### E RUR #### [facility] [address] [place] [address] Dr. Mirza Sadler CBC AUTO DIFFon 03-13-2022 BASO # 0.0 103/ul Normal 0.0-0.1 [facility] Comment on above: Performed By: #### E RUR #### [facility] [address] [place] [address] Dr. Mirza Sadler Basophils/100 WBC (Bld) 0.6 % Normal 0.2-2.0 [facility] Comment on above: Performed By: #### E RUR #### [facility] [address] [place] [address] Dr. Mirza Sadler EO # 0.1 103/ul Normal 0.0-0.7 [facility] Comment on above: Performed By: #### E RUR #### [facility] [address] [place] [address] Dr. Mirza Sadler Eosinophils/100 WBC (Bld) 1.8 % Normal 0.9-7.0 [facility] Comment on above: Performed By: #### E RUR #### [facility] [address] [place] [address] Dr. Mirza Sadler Erythrocyte distribution width (RBC) [Ratio] 14.4 % Normal 11.0-15.0 [facility] Comment on above: Performed By: #### E RUR #### [facility] [address] [place] [address] Dr. Mirza Sadler Hematocrit (Bld) [Volume fraction] 36.1 % Critically low 42.0-54.0 [facility] Comment on above: Performed By: #### E RUR #### [facility] [address] [place] [address] Dr. Mirza Sadler Hemoglobin (Bld) [Mass/Vol] 11.9 g/dL Critically low 14.0-18.0 [facility] Comment on above: Performed By: #### E RUR #### [facility] [address] [place] [address] Dr. Mirza Sadler IG # 0.02 10e3/ul Normal 0.00-0.03 [facility] Comment on above: Performed By: #### E RUR #### [facility] [address] [place] [address] Dr. Mirza Sadler IG % 0.3 % Normal 0.0-0.5 [facility] Comment on above: Performed By: #### E RUR #### [facility] [address] [place] [address] Dr. Mirza Sadler LYMPH # 1.5 103/ul Normal 1.2-3.8 [facility] Comment on above: Performed By: #### E RUR #### [facility] [address] [place] [address] Dr. Mirza Sadler Lymphocytes/100 WBC (Bld) 22.6 % Normal 20.5-60.0 [facility] Comment on above: Performed By: #### E RUR #### [facility] [address] [place] [address] Dr. Mirza Sadler MANUAL DIFF REQ NO Normal [facility] Comment on above: Performed By: #### E RUR #### [facility] [address] [place] [address] Dr. Mirza Sadler MCH (RBC) [Entitic mass] 29.0 pg Normal 25.9-34.0 [facility] Comment on above: Performed By: #### E RUR #### [facility] [address] [place] [address] Dr. Mirza Sadler MCHC (RBC) [Mass/Vol] 33.0 g/dL Normal 29.9-35.2 [facility] Comment on above: Performed By: #### E RUR #### [facility] [address] [place] [address] Dr. Mirza Sadler MCV (RBC) [Entitic vol] 88.0 fL Normal 80.0-94.0 [facility] Comment on above: Performed By: #### E RUR #### [facility] [address] [place] [address] Dr. Mirza Sadler MONO # 0.7 103/ul Normal 0.3-0.8 [facility] Comment on above: Performed By: #### E RUR #### [facility] [address] [place] [address] Dr. Mirza Sadler Monocytes/100 WBC (Bld) 10.2 % Normal 1.7-12.0 [facility] Comment on above: Performed By: #### E RUR #### [facility] [address] [place] [address] Dr. Mirza Sadler NEUT # 4.3 103/ul Normal 1.4-6.5 [facility] Comment on above: Performed By: #### E RUR #### [facility] [address] [place] [address] Dr. Mirza Sadler Neutrophils/100 WBC (Bld) 64.5 % Normal 43.0-75.0 [facility] Comment on above: Performed By: #### E RUR #### [facility] [address] [place] [address] Dr. Mirza Sadler Platelet mean volume (Bld) [Entitic vol] 9.7 fL Normal 9.5-13.5 [facility] Comment on above: Performed By: #### E RUR #### [facility] [address] [address] [address] Mirza Sadler PLT 149 103/ul Critically low 150-450 [facility] Comment on above: Performed By: #### E RUR #### [facility] [address] [place] [address] Dr. Mirza Sadler RBC 4.10 106/ul Critically low 4.70-6.10 [facility] Comment on above: Performed By: #### E RUR #### [facility] [address] [place] [address] Dr. Mirza Sadler WBC 6.6 103/ul Normal 4.0-11.0 [facility] Comment on above: Performed By: #### E RUR #### [facility] [address] [place] [address] Dr. Mirza Sadler PROF CHEM 8 (BAS METB)on Anion gap [Moles/Vol] 14.6 mmol/L Normal [facility] Comment on above: Performed By: #### E RUR #### [facility] [address] [place] [address] Dr. Mirza Sadler Calcium [Mass/Vol] 8.5 mg/dL Normal 8.5-10.1 [facility] Comment on above: Performed By: #### E RUR #### [facility] [address] [place] [address] Dr. Mirza Sadler Chloride [Moles/Vol] 104 mmol/L Normal 98-107 [facility] Comment on above: Performed By: #### E RUR #### [facility] [address] [place] [address] Dr. Mirza Sadler CO2 [Moles/Vol] 22.7 mmol/L Normal 21.0-32.0 [facility] Comment on above: Performed By: #### E RUR #### [facility] [address] [place] [address] Dr. Mirza Sadler Creatinine [Mass/Vol] 1.78 mg/dL Critically high 0.70-1.30 [facility] Comment on above: Performed By: #### E RUR #### [facility] [address] [address] [address] Mirza Sadler EGFR-AF SPANISH 46 mL/min/1.73m2 Critically low >=60 [facility] Comment on above: Performed By: #### E RUR #### [facility] [address] [address] [address] Mirza Sadler EGFR-NON AF SPANISH 38 mL/min/1.73m2 Critically low >=60 [facility] Comment on above: Performed By: #### E RUR #### [facility] [address] [address] [address] Mirza Sadler Glucose [Mass/Vol] 121 mg/dL Critically high 74-106 [facility] Comment on above: Performed By: #### E RUR #### [facility] [address] [address] [address] Mirza Sadler Potassium [Moles/Vol] 3.3 mmol/L Critically low 3.5-5.1 [facility] Comment on above: Performed By: #### E RUR #### [facility] [address] [address] [address] Mirza Sadler Sodium [Moles/Vol] 138 mmol/L Normal 136-145 [facility] Comment on above: Performed By: #### E RUR #### [facility] [address] [address] [address] Mirza Sadler Urea nitrogen [Mass/Vol] 30.0 mg/dL Critically high 7.0-18.0 [facility] Comment on above: Performed By: #### E RUR #### [facility] [address] [address] [address] Mirza Sadler Urea nitrogen/Creatinine [Mass ratio] 16.9 mg/mg Normal [facility] Comment on above: Performed By: #### E RUR #### [facility] [address] [address] [address] Mirza Sadler BNPon 03-12-2022 Natriuretic peptide B (Bld) [Mass/Vol] 7452.0 pg/mL Critically high <=900.0 [facility] Comment on above: Performed By: #### C MP, CMADM #### [facility] [address] [place] [address] Dr. Mirza Sadler CBC AUTO DIFFon 03-12-2022 BASO # 0.0 103/ul Normal 0.0-0.1 [facility] Comment on above: Performed By: #### P T, PTT #### [facility] [address] [place] [address] Dr. Mirza Sadler Basophils/100 WBC (Bld) 0.4 % Normal 0.2-2.0 [facility] Comment on above: Performed By: #### P T, PTT #### [facility] [address] [place] [address] Dr. Mirza Sadler EO # 0.0 103/ul Normal 0.0-0.7 [facility] Comment on above: Performed By: #### P T, PTT #### [facility] [address] [place] [address] Dr. Mirza Sadler Eosinophils/100 WBC (Bld) 0.2 % Critically low 0.9-7.0 [facility] Comment on above: Performed By: #### P T, PTT #### [facility] [address] [place] [address] Dr. Mirza Sadler Erythrocyte distribution width (RBC) [Ratio] 14.6 % Normal 11.0-15.0 [facility] Comment on above: Performed By: #### P T, PTT #### [facility] [address] [place] [address] Dr. Mirza Sadler Hematocrit (Bld) [Volume fraction] 37.8 % Critically low 42.0-54.0 [facility] Comment on above: Performed By: #### P T, PTT #### [facility] [address] [place] [address] Dr. Mirza Sadler Hemoglobin (Bld) [Mass/Vol] 12.2 g/dL Critically low 14.0-18.0 [facility] Comment on above: Performed By: #### P T, PTT #### [facility] [address] [place], [place] [id number] Dr. Mirza Sadler IG # 0.03 10e3/ul Normal 0.00-0.03 [facility] Comment on above: Performed By: #### P T, PTT #### [facility] [address] [place] [address] Dr. Mirza Sadler IG % 0.3 % Normal 0.0-0.5 [facility] Comment on above: Performed By: #### P T, PTT #### [facility] [address] [place] [address] Dr. Mirza Sadler LYMPH # 1.2 103/ul Normal 1.2-3.8 [facility] Comment on above: Performed By: #### P T, PTT #### [facility] [address] [place] [address] Dr. Mirza Sadler Lymphocytes/100 WBC (Bld) 11.5 % Critically low 20.5-60.0 [facility] Comment on above: Performed By: #### P T, PTT #### [facility] [address] [place] [address] Dr. Mirza Sadler MANUAL DIFF REQ NO Normal [facility] Comment on above: Performed By: #### P T, PTT #### [facility] [address] [place] [address] Dr. Mirza Sadler MCH (RBC) [Entitic mass] 29.0 pg Normal 25.9-34.0 [facility] Comment on above: Performed By: #### P T, PTT #### [facility] [address] [place] [address] Dr. Mirza Sadler MCHC (RBC) [Mass/Vol] 32.3 g/dL Normal 29.9-35.2 [facility] Comment on above: Performed By: #### P T, PTT #### [facility] [address] [place] [address] Dr. Mirza Sadler MCV (RBC) [Entitic vol] 89.8 fL Normal 80.0-94.0 [facility] Comment on above: Performed By: #### P T, PTT #### [facility] [address] [address] [address] Mirza Sadler MONO # 0.7 103/ul Normal 0.3-0.8 [facility] Comment on above: Performed By: #### P T, PTT #### [facility] [address] [place] [address] Dr. Mirza Sadler Monocytes/100 WBC (Bld) 6.8 % Normal 1.7-12.0 [facility] Comment on above: Performed By: #### P T, PTT #### [facility] [address] [place] [address] Dr. Mirza Sadler NEUT # 8.5 103/ul Critically high 1.4-6.5 [facility] Comment on above: Performed By: #### P T, PTT #### [facility] [address] [place] [address] Dr. Mirza Sadler Neutrophils/100 WBC (Bld) 80.8 % Critically high 43.0-75.0 [facility] Comment on above: Performed By: #### P T, PTT #### [facility] [address] [place] [address] Dr. Mirza Sadler Platelet mean volume (Bld) [Entitic vol] 9.8 fL Normal 9.5-13.5 [facility] Comment on above: Performed By: #### P T, PTT #### [facility] [address] [place] [address] Dr. Mirza Sadler PLT 165 103/ul Normal 150-450 [facility] Comment on above: Performed By: #### P T, PTT #### [facility] [address] [place] [address] Dr. Mirza Sadler RBC 4.21 106/ul Critically low 4.70-6.10 [facility] Comment on above: Performed By: #### P T, PTT #### [facility] [address] [place] [address] Dr. Mirza Sadler WBC 10.5 103/ul Normal 4.0-11.0 [facility] Comment on above: Performed By: #### P T, PTT #### [facility] [address] [address] [address] Mirza Sadler ECHOCARDIO M/2D COMPLETEon 1 05-13-2021 ECHOCARDIO M/2D COMPLETE Patient: LANI LIZAMA Exam Date: 03/12/2022 : 1950 Gender:M Ordering : DR OBDULIO ALVA . Admission #: [id number] Family : DR HARLEY CRESPO D.O. Order #: [id number] CLICK HERE TO VIEW EXAM ECHOCARDIOGRAM REPORT PROCEDURE: CARDIO PULMONARY ECHOCARDIO M/2D COMP INDICATIONS: Elevated TROP and BNPChest pain, recent ID, CHF, CBAG x 5, PTCA x 7 [...] Foreman M.D. on 03/13/2022 at 17:42 Normal [facility] PROF CHEM 8 (BAS METB)on Anion gap [Moles/Vol] 17.8 mmol/L Normal [facility] Comment on above: Performed By: #### C TEGAN MARIN #### [facility] [address] [address] [address] Mirza Sadler Calcium [Mass/Vol] 8.6 mg/dL Normal 8.5-10.1 [facility] Comment on above: Performed By: #### C TEGAN MARIN #### [facility] [address] [address] [address] Mirza Sadler Chloride [Moles/Vol] 103 mmol/L Normal 98-107 [facility] Comment on above: Performed By: #### C TEGAN MARIN #### [facility] [address] [address] [address] Mirza Sadler CO2 [Moles/Vol] 22.3 mmol/L Normal 21.0-32.0 [facility] Comment on above: Performed By: #### C TEGAN MARIN #### [facility] [address] [address] [address] Mirza Sadler Creatinine [Mass/Vol] 1.81 mg/dL Critically high 0.70-1.30 [facility] Comment on above: Performed By: #### C MP, CMADM #### [facility] [address] [address] [address] Mirza Sadler EGFR-AF SPANISH 45 mL/min/1.73m2 Critically low >=60 [facility] Comment on above: Performed By: #### C MP, CMADM #### [facility] [address] [address] [address] Mirza Sadler EGFR-NON AF SPANISH 37 mL/min/1.73m2 Critically low >=60 [facility] Comment on above: Performed By: #### C MP, CMADM #### [facility] [address] [address] [address] Mirza Sadler Glucose [Mass/Vol] 161 mg/dL Critically high 74-106 [facility] Comment on above: Performed By: #### C MP, CMADM #### [facility] [address] [address] [address] Mirza Sadler Potassium [Moles/Vol] 4.1 mmol/L Normal 3.5-5.1 [facility] Comment on above: Performed By: #### C MP, CMADM #### [facility] [address] [address] [address] Mirza Sadler Sodium [Moles/Vol] 139 mmol/L Normal 136-145 [facility] Comment on above: Performed By: #### C MP, CMADM #### [facility] [address] [address] [address] Mirza Sadler Urea nitrogen [Mass/Vol] 28.0 mg/dL Critically high 7.0-18.0 [facility] Comment on above: Performed By: #### C MP, CMADM #### [facility] [address] [address] [address] Mirza Sadler Urea nitrogen/Creatinine [Mass ratio] 15.5 mg/mg Normal [facility] Comment on above: Performed By: #### C MP, CMADM #### [facility] [address] [place] [address] Dr. Mirza Sadler TROPONIN, HIGH SENSITIVITYon 03-12-2022 HSTROP 61818.5 pg/mL Critically high 4.0-76.1 [facility] Comment on above: Result Comment: CUT- OFF POINTS HAVE BEEN ESTABLISHED BASED ON THE FOURTH UNIVERSAL DEFINITIONS OF MYOCARDIAL INFARCTION. THE UPPER REFERENCE LIMIT (URL) OF TROPONIN, DEFINED THE 99TH PERCENTILE OF cTnI DISTRIBUTION IN A REFERENCE POPULATION, HAS BEEN CONFIRMED THE DECISION THRESHOLD FOR ID DIAGNOSIS. Performed By: #### C MP, CMADM #### [facility] [address] [place] [address] Dr. Mirza Sadler BNPon 03-11-2022 Natriuretic peptide B (Bld) [Mass/Vol] 1378.0 pg/mL Critically high <=900.0 [facility] Comment on above: Performed By: #### P T, PTT #### [facility] [address] [place] [address] Dr. Mirza Sadler CARDIAC PARUL 3-6on 2 CK [Catalytic activity/Vol] 139 U/L Normal 39-308 [facility] Comment on above: Performed By: #### E RUR #### [facility] [address] [place] [address] Dr. Mirza Sadler CK.MB [Mass/Vol] 7.50 ng/mL Critically high <=3.60 [facility] Comment on above: Performed By: #### E RUR #### [facility] [address] [place] [address] Dr. Mirza Sadler HSTROP 1419.3 pg/mL Critically high 4.0-76.1 [facility] Comment on above: Result Comment: CUT- OFF POINTS HAVE BEEN ESTABLISHED BASED ON THE FOURTH UNIVERSAL DEFINITIONS OF MYOCARDIAL INFARCTION. THE UPPER REFERENCE LIMIT (URL) OF TROPONIN, DEFINED THE 99TH PERCENTILE OF cTnI DISTRIBUTION IN A REFERENCE POPULATION, HAS BEEN CONFIRMED THE DECISION THRESHOLD FOR ID DIAGNOSIS. Performed By: #### E RUR #### [facility] [address] [place] [address] Dr. Mirza Sadler CBC AUTO DIFFon 03-11-2022 BASO # 0.1 103/ul Normal 0.0-0.1 [facility] Comment on above: Performed By: #### E RUR #### [facility] [address] [place] [address] Dr. Mirza Sadler Basophils/100 WBC (Bld) 0.5 % Normal 0.2-2.0 [facility] Comment on above: Performed By: #### E RUR #### [facility] [address] [place] [address] Dr. Mirza Sadler EO # 0.2 103/ul Normal 0.0-0.7 [facility] Comment on above: Performed By: #### E RUR #### [facility] [address] [place] [address] Dr. Mirza Sadler Eosinophils/100 WBC (Bld) 1.3 % Normal 0.9-7.0 [facility] Comment on above: Performed By: #### E RUR #### [facility] [address] [place] [address] Dr. Mirza Sadler Erythrocyte distribution width (RBC) [Ratio] 14.6 % Normal 11.0-15.0 [facility] Comment on above: Performed By: #### E RUR #### [facility] [address] [place] [address] Dr. Mirza Sadler Hematocrit (Bld) [Volume fraction] 43.1 % Normal 42.0-54.0 [facility] Comment on above: Performed By: #### E RUR #### [facility] [address] [place] [address] Dr. Mirza Sadler Hemoglobin (Bld) [Mass/Vol] 14.2 g/dL Normal 14.0-18.0 [facility] Comment on above: Performed By: #### E RUR #### [facility] [address] [place] [address] Dr. Mirza Sadler IG # 0.07 10e3/ul Critically high 0.00-0.03 [facility] Comment on above: Performed By: #### E RUR #### [facility] [address] [place] [address] Dr. Mirza Sadler IG % 0.5 % Normal 0.0-0.5 [facility] Comment on above: Performed By: #### E RUR #### [facility] [address] [place] [address] Dr. Mirza Sadler LYMPH # 1.3 103/ul Normal 1.2-3.8 [facility] Comment on above: Performed By: #### E RUR #### [facility] [address] [place] [address] Dr. Mirza Sadler Lymphocytes/100 WBC (Bld) 8.6 % Critically low 20.5-60.0 [facility] Comment on above: Performed By: #### E RUR #### [facility] [address] [place] [address] Dr. Mirza Sadler MANUAL DIFF REQ NO Normal [facility] Comment on above: Performed By: #### E RUR #### [facility] [address] [place] [address] Dr. Mirza Sadler MCH (RBC) [Entitic mass] 29.3 pg Normal 25.9-34.0 [facility] Comment on above: Performed By: #### E RUR #### [facility] [address] [place] [address] Dr. Mirza Sadler MCHC (RBC) [Mass/Vol] 32.9 g/dL Normal 29.9-35.2 [facility] Comment on above: Performed By: #### E RUR #### [facility] [address] [place] [address] Dr. Mirza Sadler MCV (RBC) [Entitic vol] 88.9 fL Normal 80.0-94.0 [facility] Comment on above: Performed By: #### E RUR #### [facility] [address] [place] [address] Dr. Mirza Sadler MONO # 0.7 103/ul Normal 0.3-0.8 [facility] Comment on above: Performed By: #### E RUR #### [facility] [address] [place] [address] Dr. Mirza Sadler Monocytes/100 WBC (Bld) 4.3 % Normal 1.7-12.0 [facility] Comment on above: Performed By: #### E RUR #### [facility] [address] [place] [address] Dr. Mirza Sadler NEUT # 12.8 103/ul Critically high 1.4-6.5 [facility] Comment on above: Performed By: #### E RUR #### [facility] [address] [place] [address] Dr. Mirza Sadler Neutrophils/100 WBC (Bld) 84.8 % Critically high 43.0-75.0 [facility] Comment on above: Performed By: #### E RUR #### [facility] [address] [place] [address] Dr. Mirza Sadler Platelet mean volume (Bld) [Entitic vol] 9.9 fL Normal 9.5-13.5 [facility] Comment on above: Performed By: #### E RUR #### [facility] [address] [place] [address] Dr. Mirza Sadler PLT 201 103/ul Normal 150-450 [facility] Comment on above: Performed By: #### E RUR #### [facility] [address] [place] [address] Dr. Mirza Sadler RBC 4.85 106/ul Normal 4.70-6.10 [facility] Comment on above: Performed By: #### E RUR #### [facility] [address] [place] [address] Dr. Mirza Sadler WBC 15.0 103/ul Critically high 4.0-11.0 [facility] Comment on above: Performed By: #### E RUR #### [facility] [address] [place], [place] [id number] Dr. Mirza Sadler CULTURE BLOODon 03-11-2022 Microscopic examination of blood, culture Culture Observations: NO GROWTH AT 5 DAYS. Normal [facility] Comment on above: Performed By: #### H STROPN #### [facility] [address] [place] [address] Dr. Mirza Sadler Microscopic examination of blood, culture Culture Observations: NO GROWTH AT 5 DAYS. Normal [facility] Comment on above: Performed By: #### H STROPN #### [facility] [address] [place] [address] Dr. Mirza Sadler Covid-19 PCR ([facility])on 03-01 SARS-CoV-2 (COVID-19) RNA RAMO+probe Ql (Unsp spec) Not detected Normal NOT DETECTED [facility] Comment on above: Result Comment: When diagnostic [...] for this test is supported by the [place] of Health and Human Service's declaration that [...] used). Performed By: #### H STROPN #### [facility] [address] [place] [address] Dr. Mirza Sadler ER URINE PROFILEon 2 Bilirubin Ql (U) Negative Normal NEGATIVE [facility] Comment on above: Performed By: #### E RUR #### [facility] [address] [place] [address] Dr. Mirza Sadler Clarity (U) CLEAR Normal CLEAR [facility] Comment on above: Performed By: #### E RUR #### [facility] [address] [place] [address] Dr. Mirza Sadler Color (U) LT. YELLOW Normal YELLOW [facility] Comment on above: Performed By: #### E RUR #### [facility] [address] [address] [address] Mirza BUSTILLO A micrscopic examina tion will be performed if indicated. Normal [facility] Comment on above: Performed By: #### E RUR #### [facility] [address] [address] [address] Mirza Sadler Glucose Ql (U) >1000 Abnormal NEGATIVE [facility] Comment on above: Performed By: #### E RUR #### [facility] [address] [address] [address] Mirza Sadler Hemoglobin Ql (U) Negative Normal NEGATIVE [facility] Comment on above: Performed By: #### E RUR #### [facility] [address] [place] [address] Dr. Mirza Sadler Ketones Ql (U) 15 mg/dl Abnormal NEGATIVE [facility] Comment on above: Performed By: #### E RUR #### [facility] [address] [place] [address] Dr. Mirza Sadler LEUKOCYTES Negative Normal NEGATIVE [facility] Comment on above: Performed By: #### E RUR #### [facility] [address] [place] [address] Dr. Mirza Sadler Nitrite Ql (U) Negative Normal NEGATIVE [facility] Comment on above: Performed By: #### E RUR #### [facility] [address] [place] [address] Dr. Mirza Sadler pH (U) 5.0 [pH] Normal 5-9 [facility] Comment on above: Performed By: #### E RUR #### [facility] [address] [place] [address] Dr. Mirza Sadler SPEC GRAVITY 1.020 Normal 1.005-<=1. 025 [facility] Comment on above: Performed By: #### E RUR #### [facility] [address] [place] [address] Dr. Mirza Sadler UA PROTEIN TRACE Normal NEGATIVE/ TRACE [facility] Comment on above: Performed By: #### E RUR #### [facility] [address] [place] [address] Dr. Mirza Sadler UR MICRO IND NOT INDICATED Normal [facility] Comment on above: Performed By: #### E RUR #### [facility] [address] [place] [address] Dr. Mirza Sadler Urobilinogen Qn (U) 0.2 {Luisito'U}/dL Normal 0.2 - 1. 0 [facility] Comment on above: Performed By: #### E RUR #### [facility] [address] [place] [address] Dr. Mirza Sadler POINT OF CARE GLUCOSEon 03-01 Glucose [Mass/Vol] 161 mg/dL Critically high 74-106 [facility] Comment on above: Performed By: #### P T, PTT #### [facility] [address] [place] [address] Dr. Mirza Sadler PROF 14(COMP METB)on 022 Albumin [Mass/Vol] 4.3 g/dL Normal 3.4-5.0 [facility] Comment on above: Performed By: #### P T, PTT #### [facility] [address] [place] [address] Dr. Mirza Sadler Albumin/Globulin [Mass ratio] 1.1 {ratio} Normal [facility] Comment on above: Performed By: #### P T, PTT #### [facility] [address] [place] [address] Dr. Mirza Sadler ALP [Catalytic activity/Vol] 156 U/L Critically high 46-116 [facility] Comment on above: Performed By: #### P T, PTT #### [facility] [address] [place] [address] Dr. Mirza Sadler ALT [Catalytic activity/Vol] 24 U/L Normal 16-63 [facility] Comment on above: Performed By: #### P T, PTT #### [facility] [address] [place] [address] Dr. Mirza Sadler Anion gap [Moles/Vol] 16.7 mmol/L Normal [facility] Comment on above: Performed By: #### P T, PTT #### [facility] [address] [address] [address] Mirza Sadler AST [Catalytic activity/Vol] 21 U/L Normal 15-37 [facility] Comment on above: Performed By: #### P T, PTT #### [facility] [address] [address] [address] Mirza Sadler Bilirubin [Mass/Vol] 1.1 mg/dL Critically high 0.2-1.0 [facility] Comment on above: Performed By: #### P T, PTT #### [facility] [address] [address] [address] Mirza Sadler Calcium [Mass/Vol] 8.8 mg/dL Normal 8.5-10.1 [facility] Comment on above: Performed By: #### P T, PTT #### [facility] [address] [place] [address] Dr. Mirza Sadler Chloride [Moles/Vol] 105 mmol/L Normal 98-107 [facility] Comment on above: Performed By: #### P T, PTT #### [facility] [address] [address] [address] Mirza Sadler CO2 [Moles/Vol] 25.0 mmol/L Normal 21.0-32.0 [facility] Comment on above: Performed By: #### P T, PTT #### [facility] [address] [place] [address] Dr. Mirza Sadler Creatinine [Mass/Vol] 1.57 mg/dL Critically high 0.70-1.30 [facility] Comment on above: Performed By: #### P T, PTT #### [facility] [address] [address] [address] Mirza Sadler EGFR-AF SPANISH 53 mL/min/1.73m2 Critically low >=60 [facility] Comment on above: Performed By: #### P T, PTT #### [facility] [address] [address] [address] Mirza [place] EGFR-NON AF SPANISH 44 mL/min/1.73m2 Critically low >=60 [facility] Comment on above: Performed By: #### P T, PTT #### [facility] [address] [address] [address] Mirza Sadler Globulin (S) [Mass/Vol] 3.9 g/dL Normal [facility] Comment on above: Performed By: #### P T, PTT #### [facility] [address] [address] [address] Mirza Sadler Glucose [Mass/Vol] 188 mg/dL Critically high 74-106 [facility] Comment on above: Performed By: #### P T, PTT #### [facility] [address] [address] [address] Mirza Sadler Potassium [Moles/Vol] 3.7 mmol/L Normal 3.5-5.1 [facility] Comment on above: Performed By: #### P T, PTT #### [facility] [address] [address] [address] Mirza Sadler Protein [Mass/Vol] 8.2 g/dL Normal 6.4-8.2 [facility] Comment on above: Performed By: #### P T, PTT #### [facility] [address] [address] [address] Mirza Sadler Sodium [Moles/Vol] 143 mmol/L Normal 136-145 [facility] Comment on above: Performed By: #### P T, PTT #### [facility] [address] [address] [address] Mirza Sadler Urea nitrogen [Mass/Vol] 20.0 mg/dL Critically high 7.0-18.0 [facility] Comment on above: Performed By: #### P T, PTT #### [facility] [address] [address] [address] Mirza Sadler Urea nitrogen/Creatinine [Mass ratio] 12.7 mg/mg Normal [facility] Comment on above: Performed By: #### P T, PTT #### [facility] [address] [address] [address] Mirza Sadler RESPIRATORY PANEL PLUSon Adenovirus Not detected Normal NOT DETECTED [facility] Comment on above: Performed By: #### P T, PTT #### [facility] [address] [place] [address] Dr. Mirza Ball Parapertusis Not detected Normal NOT DETECTED [facility] Comment on above: Performed By: #### P T, PTT #### [facility] [address] [place] [address] Dr. Mirza Ball Pertussis Not detected Normal NOT DETECTED [facility] Comment on above: Performed By: #### P T, PTT #### [facility] [address] [place] [address] Dr. Mirza Sadler Chlamydia Pneumoniae Not detected Normal NOT DETECTED [facility] Comment on above: Performed By: #### P T, PTT #### [facility] [address] [place] [address] Dr. Mirza Sadler Coronavirus 229E Not detected Normal NOT DETECTED [facility] Comment on above: Performed By: #### P T, PTT #### [facility] [address] [place] [address] Dr. Mirza Sadler Coronavirus HKU1 Not detected Normal NOT DETECTED [facility] Comment on above: Performed By: #### P T, PTT #### [facility] [address] [place] [address] Dr. Mirza Sadler Coronavirus NL63 Not detected Normal NOT DETECTED [facility] Comment on above: Performed By: #### P T, PTT #### [facility] [address] [place] [address] Dr. Mirza Sadler Coronavirus OC43 Not detected Normal NOT DETECTED [facility] Comment on above: Performed By: #### P T, PTT #### [facility] [address] [place] [address] Dr. Mirza Sadler Influenza A H1 2009 Not detected Normal NOT DETECTED [facility] Comment on above: Performed By: #### P T, PTT #### [facility] [address] [place] [address] Dr. Mirza Sadler Influenza A H3 Not detected Normal NOT DETECTED [facility] Comment on above: Performed By: #### P T, PTT #### [facility] [address] [place] [address] Dr. Mirza Sadler Influenza B Not detected Normal NOT DETECTED [facility] Comment on above: Performed By: #### P T, PTT #### [facility] [address] [place] [address] Dr. Mirza Sadler Metapneumovirus Not detected Normal NOT DETECTED [facility] Comment on above: Performed By: #### P T, PTT #### [facility] [address] [place] [address] Dr. Mirza Sadler Mycoplas. Pneumoniae Not detected Normal NOT DETECTED [facility] Comment on above: Performed By: #### P T, PTT #### [facility] [address] [place] [address] Dr. Mirza Sadler Parainfluenza 1 Not detected Normal NOT DETECTED [facility] Comment on above: Performed By: #### P T, PTT #### [facility] [address] [place] [address] Dr. Mirza Sadler Parainfluenza 2 Not detected Normal NOT DETECTED [facility] Comment on above: Performed By: #### P T, PTT #### [facility] [address] [place] [address] Dr. Mirza Sadler Parainfluenza 3 Not detected Normal NOT DETECTED [facility] Comment on above: Performed By: #### P T, PTT #### [facility] [address] [place] [address] Dr. Mirza Sadler Parainfluenza 4 Not detected Normal NOT DETECTED [facility] Comment on above: Performed By: #### P T, PTT #### [facility] [address] [place] [address] Dr. Mirza Sadler Rhino/Enterovirus Not detected Normal NOT DETECTED [facility] Comment on above: Performed By: #### P T, PTT #### [facility] [address] [place] [address] Dr. Mirza Sadler RP2 Header 1 RESPIRATORY PANEL: VIRUSES Normal [facility] Comment on above: Performed By: #### P T, PTT #### [facility] [address] [place] [address] Dr. Mirza Sadler RP2 Header 2 RESPIRATORY PANEL: BACTERIA Normal [facility] Comment on above: Performed By: #### P T, PTT #### [facility] [address] [place] [address] Dr. Mirza Sadler RSV Not detected Normal NOT DETECTED [facility] Comment on above: Performed By: #### P T, PTT #### [facility] [address] [address] [address] Mirza Sadler SARS-CoV-2 (COVID-19) RNA RAMO+probe Ql (Unsp spec) Not detected Normal NOT DETECTED [facility] Comment on above: Performed By: #### P T, PTT #### [facility] [address] [place] [address] Dr. Mirza Sadler TROPONIN, HIGH SENSITIVITYon 03-11-2022 HSTROP 36416.8 pg/mL Critically high 4.0-76.1 [facility] Comment on above: Result Comment: CUT- OFF POINTS HAVE BEEN ESTABLISHED BASED ON THE FOURTH UNIVERSAL DEFINITIONS OF MYOCARDIAL INFARCTION. THE UPPER REFERENCE LIMIT (URL) OF TROPONIN, DEFINED THE 99TH PERCENTILE OF cTnI DISTRIBUTION IN A REFERENCE POPULATION, HAS BEEN CONFIRMED THE DECISION THRESHOLD FOR ID DIAGNOSIS. Performed By: #### C MP, CMADM #### [facility] [address] [place] [address] Dr. Mirza Sadler HSTROP 41.0 pg/mL Normal 4.0-76.1 [facility] Comment on above: Result Comment: CUT- OFF POINTS HAVE BEEN ESTABLISHED BASED ON THE FOURTH UNIVERSAL DEFINITIONS OF MYOCARDIAL INFARCTION. THE UPPER REFERENCE LIMIT (URL) OF TROPONIN, DEFINED THE 99TH PERCENTILE OF cTnI DISTRIBUTION IN A REFERENCE POPULATION, HAS BEEN CONFIRMED THE DECISION THRESHOLD FOR ID DIAGNOSIS. Performed By: #### P T, PTT #### [facility] [address] [place] [address] Dr. Mirza Sadler XR CHEST 1 Von [...] by: Kayden ACEVES Date: 2022-03-11 05:42 Normal [facility] NM MUGAon 03-09-2022 NM MUGA EXAMINATION: [...] SHANNON LANDIS Date: 2022-03-09 12:26 Normal [facility] CT CHEST WO CONon 03-02-2022 CT CHEST [...] HIGINIO FLANAGAN Date: 2022-03-02 08:52 Normal [facility] Creatinine and Glomerular fi ltration rate.predicted panel (S/P/Bld)Ordered By: Gagan Shahid on 01-17-2022 Creatinine [Mass/Vol] 1.53 mg/dL 0.64-1.27 [facility] Estimated glomerular filtrat ion rate (GFR) non- AmericanOrdered By: Gagan Shahid on 01-17-2022 GFR/1.73 sq M.predicted among non-blacks MDRD (S/P/Bld) [Vol rate/Area] 45 mL/Min [facility] Glucose Glucometer (BldC) [M ass/Vol]Ordered By: Gagan Shahid on 01-17-2022 Glucose [Mass/Vol] 178 mg/dL [facility] Comment on above: Random Glucose Refer ence Range is dependent on time and content of last meal. Glucose of more than 200 mg/dL in a nonstressed, ambulatory subject supports the diagnosis of Diabetes Mellitus. No Panel InformationOrdered By: Gagan Shahid on 01-17-2022 Estimated GFR () 55 mL/Min [facility] Comment on above: GFR estimated refere nce range: According to KDOQI guidelines, <60 ml/min/1.73m2 is sufficient to diagnose a patient with chronic kidney disease. Pharmacy Creatinine Clearance (Chem 42.00 [facility] Serum or plasma anion gap de terminationOrdered By: Gagan Shahid on 01-17-2022 Anion gap [Moles/Vol] 12.0 mmol/L 6.0-15.0 [facility] Serum or plasma calcium radha urement (mass/volume)Ordered By: Gagan Shahid on 01-17-2022 Calcium [Mass/Vol] 9.0 mg/dL 8.2-10.2 [facility] Serum or plasma chloride shanae surement (moles/volume)Ordered By: Gagan Shahid on 01-17-2022 Chloride [Moles/Vol] 107 mmol/L 95-114 [facility] Serum or plasma glucose radha urement (mass/volume)Ordered By: Gagan Shahid on 01-17-2022 Glucose [Mass/Vol] 142 mg/dL 70-100 [facility] Comment on above: ADA recommended refe rence rangeRandom Glucose Reference Range is dependent on time and content of last meal. Glucose of more than 200 mg/dL in a nonstressed, ambulatory subject supports the diagnosis of Diabetes Mellitus. Serum or plasma potassium me asurement (moles/volume)Ordered By: Gagan Shahid on 01-17-2022 Potassium [Moles/Vol] 3.5 mmol/L 3.5-5.1 [facility] Serum or plasma sodium measu rement (moles/volume)Ordered By: Gagan Shahid on 01-17-2022 Sodium [Moles/Vol] 137 mmol/L 136-146 [facility] Serum or plasma total carbon dioxide measurement (moles/volume)Ordered By: Gagan Shahid on 01-17-2022 CO2 [Moles/Vol] 21.5 mmol/L 22.0-30.0 [facility] Serum or plasma urea nitroge n measurement (mass/volume)Ordered By: Gagan Shahid on 01-17-2022 Urea nitrogen [Mass/Vol] 24 mg/dL 9-23 [facility] Activated partial thrombopla stin time (aPTT) in platelet poor plasma by coagulation aOrdered By: Gagan Shahid on 01-16-2022 aPTT Coag (PPP) [Time] 42.1 s 25.1-36.5 [facility] Basophils Auto (Bld) [#/Vol] Ordered By: Gagan Shahid on 01-16-2022 Basophils (Bld) [#/Vol] 0.0 10*3/uL 0.0-0.2 [facility] Basophils/100 WBC Auto (Bld) Ordered By: Gagan Shahid on 01-16-2022 Basophils/100 WBC (Bld) 0.5 % . [facility] Creatine kinase [Enzymatic a ctivity/volume] in Serum or PlasmaOrdered By: Gagan Shahid on 01-16-2022 CK [Catalytic activity/Vol] 92 U/L 22-269 [facility] Eosinophils Auto (Bld) [#/Vo l]Ordered By: Gagan Shahid on 01-16-2022 Eosinophils (Bld) [#/Vol] 0.2 10*3/uL 0.0-0.45 [facility] Eosinophils/100 WBC Auto (Bl d)Ordered By: Gagan Shahid on 01-16-2022 Eosinophils/100 WBC (Bld) 2.4 % . [facility] Erythrocyte distribution wid th Auto (RBC) [Ratio]Ordered By: Gagan Shahid on 01-16-2022 Erythrocyte distribution width (RBC) [Ratio] 14.6 % 12.0-14.8 [facility] Hematocrit Auto (Bld) [Volum e fraction]Ordered By: Gagan Shahid on 01-16-2022 Hematocrit (Bld) [Volume fraction] 43.4 % 38.8-50.0 [facility] Hemoglobin [Mass/volume] in BloodOrdered By: Gagan Shahid on 01-16-2022 Hemoglobin (Bld) [Mass/Vol] 14.4 g/dL 13.0-17.0 [facility] Laboratory - Chemistry and C hemistry - challengeOrdered By: Gagan Shahid on 01-16-2022 Magnesium [Mass/Vol] 1.9 mg/dL 1.6-2.6 [facility] - CoagulationOrde red By: Gagan Shahid on 01-16-2022 PT Coag (PPP) [Time] 15.7 s 9.0-12.9 [facility] - Hematology and Cell countsOrdered By: Gagan Shahid on 01-16-2022 Nucleated RBC/100 WBC (Bld) [Ratio] 0.1 % 0-0.5 [facility] Leukocytes [#/volume] in Blo od by Automated countOrdered By: Gagan Shahid on 01-16-2022 WBC (Bld) [#/Vol] 8.2 10*3/uL 4.5-11.0 [facility] Lymphocytes Auto (Bld) [#/Vo l]Ordered By: Gagan Shahid on 01-16-2022 Lymphocytes (Bld) [#/Vol] 1.6 10*3/uL 1.00-4.8 [facility] Lymphocytes/100 WBC Auto (Bl d)Ordered By: Gagan Shahid on 01-16-2022 Lymphocytes/100 WBC (Bld) 19.5 % . [facility] MCH Auto (RBC) [Entitic mass ]Ordered By: Gagan Shahid on 01-16-2022 MCH (RBC) [Entitic mass] 29.4 pg 27.5-35.2 [facility] MCHC Auto (RBC) [Mass/Vol]Or dered By: Gagan Shahid on 01-16-2022 MCHC (RBC) [Mass/Vol] 33.2 g/dL 32.5-35.6 [facility] MCV Auto (RBC) [Entitic vol] Ordered By: Gagan Shahid on 01-16-2022 MCV (RBC) [Entitic vol] 88.5 fL 83.5-101 [facility] Monocytes Auto (Bld) [#/Vol] Ordered By: Gagan Shahid on 01-16-2022 Monocytes (Bld) [#/Vol] 0.8 10*3/uL 0.0-0.8 [facility] Monocytes/100 WBC Auto (Bld) Ordered By: Gagan hSahid on 01-16-2022 Monocytes/100 WBC (Bld) 9.1 % . [facility] Neutrophils Auto (Bld) [#/Vo l]Ordered By: Gagan Shahid on 01-16-2022 Neutrophils (Bld) [#/Vol] 5.6 10*3/uL 1.8-7.7 [facility] Neutrophils/100 WBC Auto (Bl d)Ordered By: Gagan Shahid on 01-16-2022 Neutrophils/100 WBC (Bld) 68.5 % . [facility] No Panel InformationOrdered By: Gagan Shahid on 01-16-2022 Bedside Glucose Comment Glu2: cleaned meter [facility] Platelet mean volume Auto (B ld) [Entitic vol]Ordered By: Gagan Shahid on 01-16-2022 Platelet mean volume (Bld) [Entitic vol] 8.4 fL 6.6-10.1 [facility] Platelet poor plasma interna tional normalized ratio (INR) by coagulation assay (relatOrdered By: Gagan Shahid on 01-16-2022 INR Coag (PPP) [Relative time] 1.4 {INR} [facility] Comment on above: INR Therapeutic Rang [...] 01-16-2022 Platelets (Bld) [#/Vol] 178 10*3/uL 150-450 [facility] RBC Auto (Bld) [#/Vol]Ordere d By: Gagan Shahid on 01-16-2022 RBC (Bld) [#/Vol] 4.90 10*6/uL 3.90-5.60 [facility] Serum or plasma creatine kin ase MB (CKMB)/total creatine kinase (CK) ratio by calculaOrdered By: Gagan Shahid on 01-16-2022 CK.MB Calc [Catalytic fraction] 3.2 % 0.00-2.50 [facility] Serum or plasma creatine kin ase MB measurement (mass/volume)Ordered By: Gagan Shahid on 01-16-2022 CK.MB [Mass/Vol] 3.0 ng/mL 0.6-6.3 [facility] Troponin I.cardiac [Mass/vol ume] in Serum or Plasma by High sensitivity methodOrdered By: aGgan Shahid on 01-16-2022 Troponin I.cardiac High sensitivity method [Mass/Vol] 525 pg/mL 0-20 [facility] Comment on above: Critical valueresult calledat 1844 on 01/16/22 BNPon 01-15-2022 Natriuretic peptide B (Bld) [Mass/Vol] 1012.0 pg/mL Critically high <=900.0 [facility] Comment on above: Performed By: #### B BATCH DUMPER #### [facility] [address] [place] [address] Dr. Mirza Sadler CARDIAC PARUL ADMITon 022 CK [Catalytic activity/Vol] 93 U/L Normal 39-308 [facility] Comment on above: Performed By: #### C TANIA, CMADM #### [facility] [address] [place] [address] Dr. Mirza Sadler CK.MB [Mass/Vol] 1.67 ng/mL Normal <=3.60 [facility] Comment on above: Performed By: #### C TANIA, CMADM #### [facility] [address] [place] [address] Dr. Mirza Sadler HSTROP 17.1 pg/mL Normal 4.0-76.1 [facility] Comment on above: Result Comment: CUT- OFF POINTS HAVE BEEN ESTABLISHED BASED ON THE FOURTH UNIVERSAL DEFINITIONS OF MYOCARDIAL INFARCTION. THE UPPER REFERENCE LIMIT (URL) OF TROPONIN, DEFINED THE 99TH PERCENTILE OF cTnI DISTRIBUTION IN A REFERENCE POPULATION, HAS BEEN CONFIRMED THE DECISION THRESHOLD FOR ID DIAGNOSIS. Performed By: #### C TANIA, CMADM #### [facility] [address] [place] [address] Dr. Mirza Sadler RACHEL 63 ng/mL Normal 16-96 [facility] Comment on above: Performed By: #### C TANIA, CMADM #### [facility] [address] [place] [address] Dr. Mirza Sadler CBC AUTO DIFFon 01-15-2022 BASO # 0.1 103/ul Normal 0.0-0.1 [facility] Comment on above: Performed By: #### E RUR #### [facility] [address] [place] [address] Dr. Mirza Sadler Basophils/100 WBC (Bld) 0.9 % Normal 0.2-2.0 [facility] Comment on above: Performed By: #### E RUR #### [facility] [address] [place] [address] Dr. Mirza Sadler EO # 0.3 103/ul Normal 0.0-0.7 [facility] Comment on above: Performed By: #### E RUR #### [facility] [address] [place] [address] Dr. Mirza Sadler Eosinophils/100 WBC (Bld) 3.1 % Normal 0.9-7.0 [facility] Comment on above: Performed By: #### E RUR #### [facility] [address] [place] [address] Dr. Mirza Sadler Erythrocyte distribution width (RBC) [Ratio] 14.2 % Normal 11.0-15.0 [facility] Comment on above: Performed By: #### E RUR #### [facility] [address] [place] [address] Dr. Mirza Sadler Hematocrit (Bld) [Volume fraction] 44.4 % Normal 42.0-54.0 [facility] Comment on above: Performed By: #### E RUR #### [facility] [address] [place] [address] Dr. Mirza Sadler Hemoglobin (Bld) [Mass/Vol] 14.4 g/dL Normal 14.0-18.0 [facility] Comment on above: Performed By: #### E RUR #### [facility] [address] [place] [address] Dr. Mirza Sadler IG # 0.03 10e3/ul Normal 0.00-0.03 [facility] Comment on above: Performed By: #### E RUR #### [facility] [address] [place] [address] Dr. Mirza Sadler IG % 0.3 % Normal 0.0-0.5 [facility] Comment on above: Performed By: #### E RUR #### [facility] [address] [place] [address] Dr. Mirza Sadler LYMPH # 1.6 103/ul Normal 1.2-3.8 [facility] Comment on above: Performed By: #### E RUR #### [facility] [address] [address] [address] Mirza Sadler Lymphocytes/100 WBC (Bld) 16.8 % Critically low 20.5-60.0 [facility] Comment on above: Performed By: #### E RUR #### [facility] [address] [place] [address] Dr. Mirza Sadler MANUAL DIFF REQ NO Normal [facility] Comment on above: Performed By: #### E RUR #### [facility] [address] [address] [address] Mirza Sadler MCH (RBC) [Entitic mass] 29.4 pg Normal 25.9-34.0 [facility] Comment on above: Performed By: #### E RUR #### [facility] [address] [place] [address] Dr. Mirza Sadler MCHC (RBC) [Mass/Vol] 32.4 g/dL Normal 29.9-35.2 [facility] Comment on above: Performed By: #### E RUR #### [facility] [address] [place] [address] Dr. Mirza Sadler MCV (RBC) [Entitic vol] 90.6 fL Normal 80.0-94.0 [facility] Comment on above: Performed By: #### E RUR #### [facility] [address] [place] [address] Dr. Mirza Sadler MONO # 0.5 103/ul Normal 0.3-0.8 [facility] Comment on above: Performed By: #### E RUR #### [facility] [address] [place] [address] Dr. Mirza Sadler Monocytes/100 WBC (Bld) 5.9 % Normal 1.7-12.0 [facility] Comment on above: Performed By: #### E RUR #### [facility] [address] [place] [address] Dr. Mirza Sadler NEUT # 6.7 103/ul Critically high 1.4-6.5 [facility] Comment on above: Performed By: #### E RUR #### [facility] [address] [address] [address] Mirza Sadler Neutrophils/100 WBC (Bld) 73.0 % Normal 43.0-75.0 [facility] Comment on above: Performed By: #### E RUR #### [facility] [address] [address] [address] Mirza Sadler Platelet mean volume (Bld) [Entitic vol] 10.0 fL Normal 9.5-13.5 [facility] Comment on above: Performed By: #### E RUR #### [facility] [address] [address] [address] Mirza Sadler PLT 190 103/ul Normal 150-450 [facility] Comment on above: Performed By: #### E RUR #### [facility] [address] [place] [address] Dr. Mirza Sadler RBC 4.90 106/ul Normal 4.70-6.10 [facility] Comment on above: Performed By: #### E RUR #### [facility] [id number] Mirza Sadler WBC 9.2 103/ul Normal 4.0-11.0 [facility] Comment on above: Performed By: #### E RUR #### [facility] [address] [place] [address] CHEST WO CONon [...] HIGINIO FLANAGAN Date: 2022-01-15 08:19 Normal [facility] CULTURE BLOODon 01-15-2022 Microscopic examination of blood, culture Culture Observations: NO GROWTH AT 5 DAYS. Normal [facility] Comment on above: Performed By: #### H STROPN #### [facility] [address] [place] [address] Dr. Mirza Sadler Microscopic examination of blood, culture Culture Observations: NO GROWTH AT 5 DAYS. Normal [facility] Comment on above: Performed By: #### B [id number] #### [facility] [address] [place] [address] Dr. Mirza Sadler Covid-19 PCR (CVDTB)on 12-30 SARS-CoV-2 (COVID-19) RNA RAMO+probe Ql (Unsp spec) Not detected Normal NOT DETECTED [facility] Comment on above: Result Comment: When diagnostic [...] for this test is supported by the [employer] and Human Service's declaration that [...] longer be used). Performed By: #### B BATCH DUMPER #### [facility] [address] [place] [address] Dr. Mirza Sadler ER URINE PROFILEon 2 Bilirubin Ql (U) Negative Normal NEGATIVE [facility] Comment on above: Performed By: #### C TANIA, CMADM #### [facility] [address] [place] [address] Dr. Mirza Sadler Clarity (U) CLEAR Normal CLEAR [facility] Comment on above: Performed By: #### C TANIA, CMADM #### [facility] [address] [place] [address] Dr. Mirza Sadler Color (U) LT. YELLOW Normal YELLOW [facility] Comment on above: Performed By: #### C TANIA, CMADM #### [facility] [address] [place] [address] Dr. Mirza Sadler ERUAHD A micrscopic examina tion will be performed if indicated. Normal [facility] Comment on above: Performed By: #### C TANIA, CMADM #### [facility] [address] [place] [address] Dr. Mirza Sadler Glucose Ql (U) >1000 Abnormal NEGATIVE [facility] Comment on above: Performed By: #### C MP, CMADM #### [facility] [address] [place] [address] Dr. Mirza Sadler Hemoglobin Ql (U) Negative Normal NEGATIVE [facility] Comment on above: Performed By: #### C TANIA, CMADM #### [facility] [address] [place] [address] Dr. Mirza Sadler Ketones Ql (U) TRACE Abnormal NEGATIVE [facility] Comment on above: Performed By: #### C TANIA, CMADM #### [facility] [address] [place] [address] Dr. Mirza Sadler LEUKOCYTES Negative Normal NEGATIVE [facility] Comment on above: Performed By: #### C TANIA, CMADM #### [facility] [address] [address] [address] Mirza Sadler Nitrite Ql (U) Negative Normal NEGATIVE [facility] Comment on above: Performed By: #### C TANIA, CMADM #### [facility] [address] [place] [address] Dr. Mirza Sadler pH (U) 5.5 [pH] Normal 5-9 [facility] Comment on above: Performed By: #### C TANIA, CMADM #### [facility] [address] [place] [address] Dr. Mirza Sadler SPEC GRAVITY 1.020 Normal 1.005-<=1. 025 [facility] Comment on above: Performed By: #### C TANIA, CMADM #### [facility] [address] [place] [address] Dr. Mirza Sadler UA PROTEIN TRACE Normal NEGATIVE/ TRACE [facility] Comment on above: Performed By: #### C TANIA, CMADM #### [facility] [address] [place] [address] Dr. Mirza Sadler UR MICRO IND NOT INDICATED Normal [facility] Comment on above: Performed By: #### C TANIA, CMADM #### [facility] [address] [place] [address] Dr. Mirza Sadler Urobilinogen Qn (U) 0.2 {Luisito'U}/dL Normal 0.2 - 1. 0 [facility] Comment on above: Performed By: #### C TANIA, CMADM #### [facility] [address] [place] [address] Dr. Mirza Sadler LACTATE/LACTIC ACIDon 2021 Lactate [Moles/Vol] 0.8 mmol/L Normal 0.4-1.9 [facility] Comment on above: Performed By: #### P T, PTT #### [facility] [address] [address] [address] Mirza Sadler PROF 14(COMP METB)on 022 Albumin [Mass/Vol] 4.4 g/dL Normal 3.4-5.0 [facility] Comment on above: Performed By: #### C MP, CMADM #### [facility] [address] [address] [address] Mirza Sadler Albumin/Globulin [Mass ratio] 1.3 {ratio} Normal [facility] Comment on above: Performed By: #### C MP, CMADM #### [facility] [address] [place] [address] Dr. Mirza Sadler ALP [Catalytic activity/Vol] 155 U/L Critically high 46-116 [facility] Comment on above: Performed By: #### C MP, CMADM #### [facility] [address] [address] [address] Mirza Salder ALT [Catalytic activity/Vol] 27 U/L Normal 16-63 [facility] Comment on above: Performed By: #### C MP, CMADM #### [facility] [address] [address] [address] Mirza Sadler Anion gap [Moles/Vol] 14.9 mmol/L Normal [facility] Comment on above: Performed By: #### C MP, CMADM #### [facility] [address] [address] [address] Mirza Sadler AST [Catalytic activity/Vol] 22 U/L Normal 15-37 [facility] Comment on above: Performed By: #### C MP, CMADM #### [facility] [address] [address] [address] Mirza Sadler Bilirubin [Mass/Vol] 0.8 mg/dL Normal 0.2-1.0 [facility] Comment on above: Performed By: #### C MP, CMADM #### [facility] [address] [address] [address] Mirza Sadler Calcium [Mass/Vol] 8.8 mg/dL Normal 8.5-10.1 [facility] Comment on above: Performed By: #### C TANIA, CMADM #### [facility] [address] [address] [address] Mirza Sadler Chloride [Moles/Vol] 106 mmol/L Normal 98-107 [facility] Comment on above: Performed By: #### C TANIA, CMADM #### [facility] [address] [place] [address] Dr. Mirza Sadler CO2 [Moles/Vol] 23.9 mmol/L Normal 21.0-32.0 [facility] Comment on above: Performed By: #### C TANIA, CMADM #### [facility] [address] [place] [address] Dr. Mirza Sadler Creatinine [Mass/Vol] 1.51 mg/dL Critically high 0.70-1.30 [facility] Comment on above: Performed By: #### C TANIA, CMADM #### [facility] [address] [place] [address] Dr. Mirza Sadler EGFR-AF SPANISH 56 mL/min/1.73m2 Critically low >=60 [facility] Comment on above: Performed By: #### C TANIA, DOMDM #### [facility] [address] [place] [address] Dr. Mirza Sadler EGFR-NON AF SPANISH 46 mL/min/1.73m2 Critically low >=60 [facility] Comment on above: Performed By: #### C TANIA, CMADM #### [facility] [address] [place] [address] Dr. Mirza Sadler Globulin (S) [Mass/Vol] 3.4 g/dL Normal [facility] Comment on above: Performed By: #### C TANIA, CMADM #### [facility] [address] [place] [address] Dr. Mirza Sadler Glucose [Mass/Vol] 189 mg/dL Critically high 74-106 [facility] Comment on above: Performed By: #### C TANIA, CMADM #### [facility] [address] [place] [address] Dr. Mirza Sadler Potassium [Moles/Vol] 3.8 mmol/L Normal 3.5-5.1 [facility] Comment on above: Performed By: #### C TANIA, CMADM #### [facility] [address] [place] [address] Dr. Mirza Sadler Protein [Mass/Vol] 7.8 g/dL Normal 6.4-8.2 [facility] Comment on above: Performed By: #### C TANIA, CMADM #### [facility] [address] [place] [address] Dr. Mirza Sadler Sodium [Moles/Vol] 141 mmol/L Normal 136-145 [facility] Comment on above: Performed By: #### C TANIA, CMADM #### [facility] [address] [place] [address] Dr. Mirza Sadler Urea nitrogen [Mass/Vol] 22.0 mg/dL Critically high 7.0-18.0 [facility] Comment on above: Performed By: #### C TANIA, CMADM #### [facility] [address] [place] [address] Dr. Mirza Sadler Urea nitrogen/Creatinine [Mass ratio] 14.6 mg/mg Normal [facility] Comment on above: Performed By: #### C TANIA, CMADM #### [facility] [address] [place] [address] Dr. Mirza Sadler PROTIMEon 01-15-2022 INR Coag (PPP) [Relative time] 1.10 {INR} Normal [facility] Comment on above: Performed By: #### E RUR #### [facility] [address] [place] [address] Dr. Mirza Sadler INR GUIDELINES SEE BELOW Normal [facility] Comment on above: Result Comment: RIVKA RED INR: 2.0 - 3.0 CONDITIONS NOT LISTED BELOW 2.5 - 3.5 FOR PROSTHETIC HEART VALVE REPLACEMENT 2.5 - 3.5 RECURRENT THROMBOSIS Performed By: #### E RUR #### [facility] [address] [place] [address] Dr. Mirza Sadler PT Coag (PPP) [Time] 11.8 s Critically high 9.0-11.6 [facility] Comment on above: Performed By: #### E RUR #### [facility] [address] [address] [address] Mirza Sadler PTTon 01-15-2022 aPTT Coag (Bld) [Time] 29.0 s Normal 22.3-36.2 [facility] Comment on above: Performed By: #### E RUR #### [facility] [address] [address] [address] Mirza Sadler TROPONIN, HIGH SENSITIVITYon 01-15-2022 HSTROP 1786.2 pg/mL Critically high 4.0-76.1 [facility] Comment on above: Result Comment: CUT- OFF POINTS HAVE BEEN ESTABLISHED BASED ON THE FOURTH UNIVERSAL DEFINITIONS OF MYOCARDIAL INFARCTION. THE UPPER REFERENCE LIMIT (URL) OF TROPONIN, DEFINED THE 99TH PERCENTILE OF cTnI DISTRIBUTION IN A REFERENCE POPULATION, HAS BEEN CONFIRMED THE DECISION THRESHOLD FOR ID DIAGNOSIS. Performed By: #### H STROPN #### [facility] [address] [address] [address] Mirza Sadler HSTROP 669.3 pg/mL Critically high 4.0-76.1 [facility] Comment on above: Result Comment: CUT- OFF POINTS HAVE BEEN ESTABLISHED BASED ON THE FOURTH UNIVERSAL DEFINITIONS OF MYOCARDIAL INFARCTION. THE UPPER REFERENCE LIMIT (URL) OF TROPONIN, DEFINED THE 99TH PERCENTILE OF cTnI DISTRIBUTION IN A REFERENCE POPULATION, HAS BEEN CONFIRMED THE DECISION THRESHOLD FOR ID DIAGNOSIS. Performed By: #### H STROPN #### [facility] [address] [address] [address] Mirza Sadler XR CHEST 1 Von [...] WAYNE CASEY Date: 2022-01-15 06:42 Normal [facility] A1C HEMOGLOBINon 12-18-2021 HbA1c (Bld) [Mass fraction] 6.2 % [employer] Other Glucose - FINGER STICKon Glucose [Mass/Vol] 120 mg/dL [employer] Other HbA1c (Bld) [Mass fraction]o n 12-18-2021 A1C HEMOGLOBIN [employer] Other XR CHEST 2 Von 12-08-2021 XR [...] HIGINIO FLANAGAN Date: 2021-12-08 16:07 Normal [facility] PTH INTACTon 12-01-2021 PTH, Intact 15 pg/mL Normal 15-65 [facility] Comment on above: Performed By: #### C , [facility] #### [facility] [address] [address] [address] Mirza Sadler VIT D 25-OH [employer]on 2021 Vitamin D, 25-Hydroxy 41.2 ng/mL Normal 30.0-100.0 [facility] Comment on above: Result Comment: Cielo min D deficiency has been defined by the [place] of [employer] and an Endocrine Society practice guideline as a level of serum 25-OH vitamin D less than 20 ng/mL (1,2). The Endocrine Society went on to further define vitamin D insufficiency as a level between 21 and 29 ng/mL (2). 1. IOM ([place] of [employer]). 2010. Dietary reference intakes for calcium and D. [place]: The National Academies Press. 2. Noemy MF, Sonam PAUL, Jake HERMOSILLO, et al. Evaluation, treatment, and prevention of vitamin D deficiency: an Endocrine Society clinical practice guideline. JCEM. 2010; 96(7):1911-30. Performed By: #### P T, PTT #### [facility] [address] [place] [address] Dr. Mirza Sadler HEMOGRAM AND PLATELon 2021 Hematocrit (Bld) [Volume fraction] 39.9 % Critically low 42.0-54.0 [facility] Comment on above: Performed By: #### P T, PTT #### [facility] [address] [place] [address] Dr. Mirza Sadler Hemoglobin (Bld) [Mass/Vol] 13.1 g/dL Critically low 14.0-18.0 [facility] Comment on above: Performed By: #### P T, PTT #### [facility] [address] [place] [address] Dr. Mirza Sadler MCH (RBC) [Entitic mass] 29.5 pg Normal 25.9-34.0 [facility] Comment on above: Performed By: #### P T, PTT #### [facility] [address] [place] [address] Dr. Mirza Sadler MCHC (RBC) [Mass/Vol] 32.8 g/dL Normal 29.9-35.2 [facility] Comment on above: Performed By: #### P T, PTT #### [facility] [address] [place] [address] Dr. Mirza Salder MCV (RBC) [Entitic vol] 89.9 fL Normal 80.0-94.0 [facility] Comment on above: Performed By: #### P T, PTT #### [facility] [address] [place] [address] Dr. Mirza Sadler PLT 182 103/ul Normal 150-450 [facility] Comment on above: Performed By: #### P T, PTT #### [facility] [address] [place] [address] Dr. Mirza Sadler RBC 4.44 106/ul Critically low 4.70-6.10 [facility] Comment on above: Performed By: #### P T, PTT #### [facility] [address] [place] [address] Dr. Mirza Sadler WBC 6.9 103/ul Normal 4.0-11.0 [facility] Comment on above: Performed By: #### P T, PTT #### [facility] [address] [place] [address] Dr. Mirza Sadler MAGNESIUMon 11-30-2021 Magnesium [Mass/Vol] 1.8 mg/dL Normal 1.8-2.4 [facility] Comment on above: Performed By: #### P T, PTT #### [facility] [address] [place] [address] Dr. Mirza Sadler RENAL FUNCTION PANELon 11-30 Albumin [Mass/Vol] 3.9 g/dL Normal 3.4-5.0 [facility] Comment on above: Performed By: #### P T, PTT #### [facility] [address] [place] [address] Dr. Mirza Sadler Calcium [Mass/Vol] 9.0 mg/dL Normal 8.5-10.1 [facility] Comment on above: Performed By: #### P T, PTT #### [facility] [address] [place] [address] Dr. Mirza Sadler Chloride [Moles/Vol] 107 mmol/L Normal 98-107 [facility] Comment on above: Performed By: #### P T, PTT #### [facility] [address] [place] [address] Dr. Mirza Sadler CO2 [Moles/Vol] 26.2 mmol/L Normal 21.0-32.0 [facility] Comment on above: Performed By: #### P T, PTT #### [facility] [address] [place] [address] Dr. Mirza Sadler Creatinine [Mass/Vol] 1.55 mg/dL Critically high 0.70-1.30 [facility] Comment on above: Performed By: #### P T, PTT #### [facility] [address] [address] [address] Mirza Sadler EGFR-AF SPANISH 54 mL/min/1.73m2 Critically low >=60 [facility] Comment on above: Performed By: #### P T, PTT #### [facility] [address] [address] [address] Mirza Sadler EGFR-NON AF SPANISH 45 mL/min/1.73m2 Critically low >=60 [facility] Comment on above: Performed By: #### P T, PTT #### [facility] [address] [place] [address] Dr. Mirza Sadler Glucose [Mass/Vol] 166 mg/dL Critically high 74-106 [facility] Comment on above: Performed By: #### P T, PTT #### [facility] [address] [address] [address] Mirza Sadler Phosphate [Mass/Vol] 3.7 mg/dL Normal 2.6-4.7 [facility] Comment on above: Performed By: #### P T, PTT #### [facility] [address] [place] [address] Dr. Mirza Sadler Potassium [Moles/Vol] 4.2 mmol/L Normal 3.5-5.1 [facility] Comment on above: Performed By: #### P T, PTT #### [facility] [address] [address] [address] Mirza Sadler Sodium [Moles/Vol] 142 mmol/L Normal 136-145 [facility] Comment on above: Performed By: #### P T, PTT #### [facility] [address] [address] [address] Mirza Sadler Urea nitrogen [Mass/Vol] 16.0 mg/dL Normal 7.0-18.0 [facility] Comment on above: Performed By: #### P T, PTT #### [facility] [address] [place] [address] Dr. Mirza Sadler UA RANDOM W/MICROSCOPICon BACTERIA NONE SEEN Normal NONE SEEN [facility] Comment on above: Performed By: #### B LDCX2 #### [facility] [address] [place] [address] Dr. Mirza Sadler Bilirubin Ql (U) Negative Normal NEGATIVE [facility] Comment on above: Performed By: #### B LDCX2 #### [facility] [address] [place] [address] Dr. Mirza Sadler CAST NONE SEEN Normal NONE SEEN [facility] Comment on above: Performed By: #### B LDCX2 #### [facility] [address] [place] [address] Dr. Mirza Sadler Clarity (U) CLEAR Normal CLEAR [facility] Comment on above: Performed By: #### B LDCX2 #### [facility] [address] [place] [address] Dr. Mirza Sadler Color (U) LT. YELLOW Normal YELLOW [facility] Comment on above: Performed By: #### B LDCX2 #### [facility] [address] [place] [address] Dr. Mirza Sadler Crystals LM Nom (Urine sed) NONE SEEN Normal NONE SEEN [facility] Comment on above: Performed By: #### B LDCX2 #### [facility] [address] [place] [address] Dr. Mirza Sadler Epithelial cells LM Ql (Urine sed) RARE Normal NONE SEEN /RARE [facility] Comment on above: Performed By: #### B LDCX2 #### [facility] [address] [place] [address] Dr. Mirza Sadler Glucose Ql (U) >1000 Abnormal NEGATIVE [facility] Comment on above: Performed By: #### B LDCX2 #### [facility] [address] [place] [address] Dr. Mirza Sadler Hemoglobin Ql (U) Negative Normal NEGATIVE [facility] Comment on above: Performed By: #### B LDCX2 #### [facility] [address] [place] [address] Dr. Mirza Sadler Ketones Ql (U) Negative Normal NEGATIVE [facility] Comment on above: Performed By: #### B LDCX2 #### [facility] [address] [place] [address] Dr. Mirza Sadler LEUKOCYTES Negative Normal NEGATIVE [facility] Comment on above: Performed By: #### B LDCX2 #### [facility] [address] [place] [address] Dr. Mirza Sadler MUCOUS NONE SEEN Normal NONE SEEN [facility] Comment on above: Performed By: #### B LDCX2 #### [facility] [address] [place] [address] Dr. Mirza Sadler Nitrite Ql (U) Negative Normal NEGATIVE [facility] Comment on above: Performed By: #### B LDCX2 #### [facility] [address] [place] [address] Dr. Mirza Sadler pH (U) 5.5 [pH] Normal 5-9 [facility] Comment on above: Performed By: #### B LDCX2 #### [facility] [address] [place] [address] Dr. Mirza Sadler RBC NONE SEEN Abnormal 0-2 [facility] Comment on above: Performed By: #### B LDCX2 #### [facility] [address] [place] [address] Dr. Mirza Sadler SPEC GRAVITY 1.015 Normal 1.005-<=1. 025 [facility] Comment on above: Performed By: #### B LDCX2 #### [facility] [address] [place] [address] Dr. Mirza Sadler UA PROTEIN Negative Normal NEGATIVE/ TRACE [facility] Comment on above: Performed By: #### B LDCX2 #### [facility] [address] [place] [address] Dr. Mirza Sadler Urobilinogen Qn (U) 0.2 {Luisito'U}/dL Normal 0.2 - 1. 0 [facility] Comment on above: Performed By: #### B LDCX2 #### [facility] [address] [place] [address] Dr. Mirza Sadler WBC NONE SEEN Normal NONE SEEN [facility] Comment on above: Performed By: #### B LDCX2 #### [facility] [address] [address] [address] Mirza Sadler URINE T PROTEIN CREAT RATIOo n 11-30-2021 Protein (U) [Mass/Vol] 22.4 mg/dL Critically high <=12.0 [facility] Comment on above: Performed By: #### U RTPCR #### [facility] [address] [address] [address] Mirza Sadler UR PROT CREAT RAT 0.31 Normal [facility] Comment on above: Performed By: #### U RTPCR #### [facility] [address] [address] [address] Mirza Sadler URINE CREAT 73.05 mg/dL Normal 20.00-300. 00 [facility] Comment on above: Performed By: #### U RTPCR #### [facility] [address] [address] [address] Mirza Sadler NM HEPATOBILIARY SCAN W [...] HIGINIO FLANAGAN Date: 2021-11-24 11:55 Normal [facility] BNPon 10-27-2021 Natriuretic peptide B (Bld) [Mass/Vol] 574.0 pg/mL Normal <=900.0 [facility] Comment on above: Performed By: #### P T, PTT #### [facility] [address] [place] [address] Dr. Mirza Sadler CARDIAC PARUL ADMITon 022 CK [Catalytic activity/Vol] 70 U/L Normal 39-308 [facility] Comment on above: Performed By: #### P T, PTT #### [facility] [address] [place] [address] Dr. Mirza Sadler CK.MB [Mass/Vol] 1.10 ng/mL Normal <=3.60 [facility] Comment on above: Performed By: #### P T, PTT #### [facility] [address] [place] [address] Dr. Mirza Sadler HSTROP 22.3 pg/mL Normal 4.0-76.1 [facility] Comment on above: Result Comment: CUT- OFF POINTS HAVE BEEN ESTABLISHED BASED ON THE FOURTH UNIVERSAL DEFINITIONS OF MYOCARDIAL INFARCTION. THE UPPER REFERENCE LIMIT (URL) OF TROPONIN, DEFINED THE 99TH PERCENTILE OF cTnI DISTRIBUTION IN A REFERENCE POPULATION, HAS BEEN CONFIRMED THE DECISION THRESHOLD FOR ID DIAGNOSIS. Performed By: #### P T, PTT #### [facility] [address] [place] [address] Dr. Mirza Sadler RACHEL 81 ng/mL Normal 16-96 [facility] Comment on above: Performed By: #### P T, PTT #### [facility] [address] [place] [address] Dr. Mirza Sadler CBC AUTO DIFFon 10-27-2021 BASO # 0.1 103/ul Normal 0.0-0.1 [facility] Comment on above: Performed By: #### E RUR #### [facility] [address] [place] [address] Dr. Mirza Sadler Basophils/100 WBC (Bld) 0.4 % Normal 0.2-2.0 [facility] Comment on above: Performed By: #### E RUR #### [facility] [address] [place] [address] Dr. Mirza Sadler EO # 0.1 103/ul Normal 0.0-0.7 [facility] Comment on above: Performed By: #### E RUR #### [facility] [address] [place] [address] Dr. Mirza Sadler Eosinophils/100 WBC (Bld) 0.4 % Critically low 0.9-7.0 [facility] Comment on above: Performed By: #### E RUR #### [facility] [address] [place] [address] Dr. Mirza Sadler Erythrocyte distribution width (RBC) [Ratio] 14.1 % Normal 11.0-15.0 [facility] Comment on above: Performed By: #### E RUR #### [facility] [address] [place] [address] Dr. Mirza Sadler Hematocrit (Bld) [Volume fraction] 41.0 % Critically low 42.0-54.0 [facility] Comment on above: Performed By: #### E RUR #### [facility] [address] [place] [address] Dr. Mirza Sadler Hemoglobin (Bld) [Mass/Vol] 14.1 g/dL Normal 14.0-18.0 [facility] Comment on above: Performed By: #### E RUR #### [facility] [address] [place] [address] Dr. Mirza Sadler IG # 0.05 10e3/ul Critically high 0.00-0.03 [facility] Comment on above: Performed By: #### E RUR #### [facility] [address] [place] [address] Dr. Mirza Sadler IG % 0.4 % Normal 0.0-0.5 [facility] Comment on above: Performed By: #### E RUR #### [facility] [address] [place] [address] Dr. Mirza Sadler LYMPH # 0.9 103/ul Critically low 1.2-3.8 [facility] Comment on above: Performed By: #### E RUR #### [facility] [address] [place], [place] [id number] Dr. Mirza Sadler Lymphocytes/100 WBC (Bld) 6.6 % Critically low 20.5-60.0 [facility] Comment on above: Performed By: #### E RUR #### [facility] [address] [place] [address] Dr. Mirza Sadler MANUAL DIFF REQ NO Normal [facility] Comment on above: Performed By: #### E RUR #### [facility] [address] [place] [address] Dr. Mirza Sadler MCH (RBC) [Entitic mass] 29.7 pg Normal 25.9-34.0 [facility] Comment on above: Performed By: #### E RUR #### [facility] [address] [place] [address] Dr. Mirza Sadler MCHC (RBC) [Mass/Vol] 34.4 g/dL Normal 29.9-35.2 [facility] Comment on above: Performed By: #### E RUR #### [facility] [address] [place] [address] Dr. Mirza Sadler MCV (RBC) [Entitic vol] 86.3 fL Normal 80.0-94.0 [facility] Comment on above: Performed By: #### E RUR #### [facility] [address] [place] [address] Dr. Mirza Sadler MONO # 0.4 103/ul Normal 0.3-0.8 [facility] Comment on above: Performed By: #### E RUR #### [facility] [address] [place] [address] Dr. Mirza Sadler Monocytes/100 WBC (Bld) 2.6 % Normal 1.7-12.0 [facility] Comment on above: Performed By: #### E RUR #### [facility] [address] [place] [address] Dr. Mirza Sadler NEUT # 12.2 103/ul Critically high 1.4-6.5 [facility] Comment on above: Performed By: #### E RUR #### [facility] [address] [place] [address] Dr. Mirza Sadler Neutrophils/100 WBC (Bld) 89.6 % Critically high 43.0-75.0 [facility] Comment on above: Performed By: #### E RUR #### [facility] [address] [place] [address] Dr. Mirza Sadler Platelet mean volume (Bld) [Entitic vol] 9.7 fL Normal 9.5-13.5 [facility] Comment on above: Performed By: #### E RUR #### [facility] [address] [place] [address] Dr. Mirza Sadler PLT 183 103/ul Normal 150-450 [facility] Comment on above: Performed By: #### E RUR #### [facility] [address] [place] [address] Dr. Mirza Sadler RBC 4.75 106/ul Normal 4.70-6.10 [facility] Comment on above: Performed By: #### E RUR #### [facility] [address] [place] [address] Dr. Mirza Sadler WBC 13.7 103/ul Critically high 4.0-11.0 [facility] Comment on above: Performed By: #### E RUR #### [facility] [address] [place] [address] Dr. Mirza Sadler CULTURE BLOODon 10-27-2021 Microscopic examination of blood, culture Culture Observations: NO GROWTH AT 5 DAYS. Normal [facility] Comment on above: Performed By: #### B LDCX2 #### [facility] [address] [place] [address] Dr. Mirza Sadler Performed By: #### H STROPN #### [facility] [address] [place] [address] Dr. Mirza Sadler Covid-19 PCR ([facility])on 09-30 SARS-CoV-2 (COVID-19) RNA RAMO+probe Ql (Unsp spec) Not detected Normal NOT DETECTED [facility] Comment on above: Result Comment: When diagnostic [...] for this test is supported by the Telecommunication Operator of Health and Human Service's declaration that [...] Performed By: #### P T, PTT #### [facility] [address] [place] [address] Dr. Mirza Sadler ER URINE PROFILEon 2 Bilirubin Ql (U) Negative Normal NEGATIVE [facility] Comment on above: Performed By: #### H STROPN #### [facility] [address] [place] [address] Dr. Mirza Sadler Clarity (U) CLEAR Normal CLEAR [facility] Comment on above: Performed By: #### H STROPN #### [facility] [address] [place] [address] Dr. Mirza Sadler Color (U) YELLOW Normal YELLOW [facility] Comment on above: Performed By: #### H STROPN #### [facility] [address] [place] [address] Dr. Mirza Sadler ERUAHD A micrscopic examina tion will be performed if indicated. Normal [facility] Comment on above: Performed By: #### H STROPN #### [facility] [address] [place] [address] Dr. Mirza Sadler Glucose Ql (U) >1000 Abnormal NEGATIVE [facility] Comment on above: Performed By: #### H STROPN #### [facility] [address] [place] [address] Dr. Mirza Sadler Hemoglobin Ql (U) Negative Normal NEGATIVE [facility] Comment on above: Performed By: #### H STROPN #### [facility] [address] [place] [address] Dr. Mirza Sadler Ketones Ql (U) TRACE Abnormal NEGATIVE [facility] Comment on above: Performed By: #### H STROPN #### [facility] [address] [place] [address] Dr. Mirza Sadler LEUKOCYTES Negative Normal NEGATIVE [facility] Comment on above: Performed By: #### H STROPN #### [facility] [address] [place] [address] Dr. Mirza Sadler Nitrite Ql (U) Negative Normal NEGATIVE [facility] Comment on above: Performed By: #### H STROPN #### [facility] [address] [place] [address] Dr. Mirza Sadler pH (U) 5.5 [pH] Normal 5-9 [facility] Comment on above: Performed By: #### H STROPN #### [facility] [address] [place] [address] Dr. Mirza Sadler SPEC GRAVITY 1.010 Normal 1.005-<=1. 025 [facility] Comment on above: Performed By: #### H STROPN #### [facility] [address] [place] [address] Dr. Mirza Sadler UA PROTEIN Negative Normal NEGATIVE/ TRACE [facility] Comment on above: Performed By: #### H STROPN #### [facility] [address] [place] [address] Dr. Mirza Sadler UR MICRO IND NOT INDICATED Normal [facility] Comment on above: Performed By: #### H STROPN #### [facility] [address] [place] [address] Dr. Mirza Sadler Urobilinogen Qn (U) 0.2 {Luisito'U}/dL Normal 0.2 - 1. 0 [facility] Comment on above: Performed By: #### H STROPN #### [facility] [address] [place] [address] Dr. Mirza Sadler INFLUENZA A AND B AGon 10-27 INFLUANEGH SEE BELOW Normal [facility] Comment on above: Result Comment: Nega tive for Flu A protein angiten. Infection due to Flu A cannot be ruled out. Flu A angiten in the sample may be below the detection limit of the test. Performed By: #### B BATCH DUMPER #### [facility] [address] [place] [address] Dr. Mirza Sadler [facility]FL[facility]BN[facility]ALTH SEE BELOW Normal [facility] Comment on above: Result Comment: Nega tive for Flu B protein antigen. Infection due to Flu B cannot be ruled out. Flu B antigen in the sample may be below the detection limit of the test. Performed By: #### B BATCH DUMPER #### [facility] [address] [place] [address] Dr. Mirza Sadler INFLUENZA A AG Negative Normal NEGATIVE SEE COMMENT [facility] Comment on above: Performed By: #### B BATCH DUMPER #### [facility] [address] [place] [address] Dr. Mirza Sadler INFLUENZA B AG Negative Normal NEGATIVE SEE COMMENT [facility] Comment on above: Performed By: #### B BATCH DUMPER #### [facility] [address] [place] [address] Dr. Mirza Sadler INTERNAL CONTROLS Within Normal Limits Normal Wi thin Normal Limits [facility] Comment on above: Performed By: #### B BATCH DUMPER #### [facility] [address] [place] [address] Dr. Mirza Sadler LACTATE/LACTIC ACIDon 2021 Lactate [Moles/Vol] 1.8 mmol/L Normal 0.4-1.9 [facility] Comment on above: Performed By: #### C MP, CMADM #### [facility] [address] [place] [address] Dr. Mirza Sadler LIPASEon 10-27-2021 Lipase [Catalytic activity/Vol] 87.0 U/L Normal 73.0-393.0 [facility] Comment on above: Performed By: #### P T, PTT #### [facility] [address] [place] [address] Dr. Mirza Sadler PH VENOUS BLOODon 10-27-2021 PCO2 VENOUS 37.6 mmHg Critically low 40.0-52.0 [facility] Comment on above: Performed By: #### P T, PTT #### [facility] [address] [place] [address] Dr. Mirza Sadler pH VENOUS 7.422 Normal 7.330-7.43 0 [facility] Comment on above: Performed By: #### P T, PTT #### [facility] [address] [place] [address] Dr. Mirza Sadler PROF 14(COMP METB)on 022 Albumin [Mass/Vol] 4.2 g/dL Normal 3.4-5.0 [facility] Comment on above: Performed By: #### P T, PTT #### [facility] [address] [place] [address] Dr. Mirza Sadler Albumin/Globulin [Mass ratio] 1.3 {ratio} Normal [facility] Comment on above: Performed By: #### P T, PTT #### [facility] [address] [place] [address] Dr. Mirza Sadler ALP [Catalytic activity/Vol] 121 U/L Critically high 46-116 [facility] Comment on above: Performed By: #### P T, PTT #### [facility] [address] [place] [address] Dr. Mirza Sadler ALT [Catalytic activity/Vol] 22 U/L Normal 16-63 [facility] Comment on above: Performed By: #### P T, PTT #### [facility] [address] [place] [address] Dr. Mirza Sadler Anion gap [Moles/Vol] 16.0 mmol/L Normal [facility] Comment on above: Performed By: #### P T, PTT #### [facility] [address] [place] [address] Dr. Mirza Sadler AST [Catalytic activity/Vol] 18 U/L Normal 15-37 [facility] Comment on above: Performed By: #### P T, PTT #### [facility] [address] [place] [address] Dr. Mirza Sadler Bilirubin [Mass/Vol] 1.3 mg/dL Critically high 0.2-1.0 [facility] Comment on above: Performed By: #### P T, PTT #### [facility] [address] [place] [address] Dr. Mirza Sadler Calcium [Mass/Vol] 8.9 mg/dL Normal 8.5-10.1 [facility] Comment on above: Performed By: #### P T, PTT #### [facility] [address] [place] [address] Dr. Mirza Sadler Chloride [Moles/Vol] 105 mmol/L Normal 98-107 [facility] Comment on above: Performed By: #### P T, PTT #### [facility] [address] [place] [address] Dr. Mirza Sadler CO2 [Moles/Vol] 23.7 mmol/L Normal 21.0-32.0 [facility] Comment on above: Performed By: #### P T, PTT #### [facility] [address] [place] [address] Dr. Mirza Sadler Creatinine [Mass/Vol] 1.79 mg/dL Critically high 0.70-1.30 [facility] Comment on above: Performed By: #### P T, PTT #### [facility] [address] [place] [address] Dr. Mirza Sadler EGFR-AF SPANISH 46 mL/min/1.73m2 Critically low >=60 [facility] Comment on above: Performed By: #### P T, PTT #### [facility] [address] [place] [address] Dr. Mirza Sadler EGFR-NON AF SPANISH 38 mL/min/1.73m2 Critically low >=60 [facility] Comment on above: Performed By: #### P T, PTT #### [facility] [address] [place] [address] Dr. Mirza Sadler Globulin (S) [Mass/Vol] 3.3 g/dL Normal [facility] Comment on above: Performed By: #### P T, PTT #### [facility] [address] [place] [address] Dr. Mirza Sadler Glucose [Mass/Vol] 195 mg/dL Critically high 74-106 [facility] Comment on above: Performed By: #### P T, PTT #### [facility] [address] [address] [address] Mirza Sadler Potassium [Moles/Vol] 3.7 mmol/L Normal 3.5-5.1 [facility] Comment on above: Performed By: #### P T, PTT #### [facility] [address] [address] [address] Mirza Sadler Protein [Mass/Vol] 7.5 g/dL Normal 6.4-8.2 [facility] Comment on above: Performed By: #### P T, PTT #### [facility] [address] [address] [address] Mirza Sadler Sodium [Moles/Vol] 141 mmol/L Normal 136-145 [facility] Comment on above: Performed By: #### P T, PTT #### [facility] [address] [address] [address] Mirza Sadler Urea nitrogen [Mass/Vol] 25.0 mg/dL Critically high 7.0-18.0 [facility] Comment on above: Performed By: #### P T, PTT #### [facility] [address] [place] [address] Dr. Mirza Sadler Urea nitrogen/Creatinine [Mass ratio] 14.0 mg/mg Normal [facility] Comment on above: Performed By: #### P T, PTT #### [facility] [address] [place] [address] Dr. Mirza Sadler PROTIMEon 10-27-2021 INR Coag (PPP) [Relative time] 1.07 {INR} Normal [facility] Comment on above: Performed By: #### P T, PTT #### [facility] [address] [place] [address] Dr. Mirza Sadler INR GUIDELINES SEE BELOW Normal [facility] Comment on above: Result Comment: RIVKA RED INR: 2.0 - 3.0 CONDITIONS NOT LISTED BELOW 2.5 - 3.5 FOR PROSTHETIC HEART VALVE REPLACEMENT 2.5 - 3.5 RECURRENT THROMBOSIS Performed By: #### P T, PTT #### [facility] [address] [address] [address] Mirza Sadler PT Coag (PPP) [Time] 11.5 s Normal 9.0-11.6 [facility] Comment on above: Performed By: #### P T, PTT #### [facility] [address] [id number] [address] Mirza Sadler PTTon 10-27-2021 aPTT Coag (Bld) [Time] 25.1 s Normal 22.3-36.2 [facility] Comment on above: Performed By: #### P T, PTT #### [facility] [address] [address] [address] Mirza Sadler XR CHEST 1 Von [...] GAGAN CAREY Date: 2021-10-27 10:21 Normal [facility] -- LANI LIZAMA ([id number]) 1950 M Date Time Provider Department 10/20/21 ABDON WALKER During your visit today, we recorded the following information about you: Vee Day 10/20/2021 9:43 AM Signed New CBC order. Vee Day Allergies As of Date: 10/20/2021 Noted Allergy Reaction Nkda [Other] 07/28/2018 16 - Unknown Comments: Received name: Nkda Date Reviewed: 10/20/2021 Reviewed by: Vickie Barrera PA-C - Fully Assessed Reason for Visit: Lab Orders [7228] Primary Visit Diagnosis:Monoclonal gammopathy [D47.2] Order(s):CBC + DIFF [SQCBCDIF] Order #: [id number] FUTURE Prescriptions as of 10/24/2021 - famotidine [...] Status:Closed by VEE DAY on 10/24/21 Normal [facility] RAD - CT Reporton 10-06-2021 RAD - CT Report [id number]:127 [address] [facility] CT ABD/PELVIS WO CONon 10-03 CT [...] by: HIGINIO FLANAGAN Date: 2021-10-03 16:29 Normal [facility] Ambulatory Visit Summaryon 0 09-29-2021 Ambulatory Visit Summary LANI LIZAMA :1950 Visit Date:09/29/2021 Ambulatory Visit Instructions Your Diagnosis Abdominal pain, RLQ Nausea Tests Performed CT Abdomen/Pelvis w/o Contrast -- Results Pending -- Please visit your patient portal for your results or contact your primary care physician. Your Care Team Attending Physician - FRNAKIE LEMUS, Gagan Sanchez Primary Care Physician - [...] RLQ ASHD (arteriosclerotic heart disease) Atheroscler of [place] artery of both legs with intermit claudication [...] infrarenal abdominal aorta due to atherosclerosis Normal [facility] Outside Colonoscopyon 2021 Outside Colonoscopy [id number]:127 Normal [facility] Physician Referralon 022 Physician Referral [id number]:127 Normal [facility] PROF 14(COMP METB)on 022 Albumin [Mass/Vol] 4.1 g/dL Normal 3.4-5.0 [facility] Comment on above: Performed By: #### P T, PTT #### [facility] [address] [place] [address] Dr. Mirza Sadler Albumin/Globulin [Mass ratio] 1.2 {ratio} Normal [facility] Comment on above: Performed By: #### P T, PTT #### [facility] [address] [place] [address] Dr. Mirza Sadler ALP [Catalytic activity/Vol] 132 U/L Critically high 46-116 [facility] Comment on above: Performed By: #### P T, PTT #### [facility] [address] [place] [address] Dr. Mirza Sadler ALT [Catalytic activity/Vol] 30 U/L Normal 16-63 [facility] Comment on above: Performed By: #### P T, PTT #### [facility] [address] [place] [address] Dr. Mirza Sadler Anion gap [Moles/Vol] 10.7 mmol/L Normal [facility] Comment on above: Performed By: #### P T, PTT #### [facility] [address] [place] [address] Dr. Mirza Sadler AST [Catalytic activity/Vol] 21 U/L Normal 15-37 [facility] Comment on above: Performed By: #### P T, PTT #### [facility] [address] [place] [address] Dr. Mirza Sadler Bilirubin [Mass/Vol] 0.7 mg/dL Normal 0.2-1.0 [facility] Comment on above: Performed By: #### P T, PTT #### [facility] [address] [place] [address] Dr. Mirza Sadler Calcium [Mass/Vol] 9.0 mg/dL Normal 8.5-10.1 [facility] Comment on above: Performed By: #### P T, PTT #### [facility] [address] [address] [address] Mirza Sadler Chloride [Moles/Vol] 106 mmol/L Normal 98-107 [facility] Comment on above: Performed By: #### P T, PTT #### [facility] [address] [address] [address] Mirza Sadler CO2 [Moles/Vol] 27.5 mmol/L Normal 21.0-32.0 [facility] Comment on above: Performed By: #### P T, PTT #### [facility] [address] [place] [address] Dr. Mirza Sadler Creatinine [Mass/Vol] 1.77 mg/dL Critically high 0.70-1.30 [facility] Comment on above: Performed By: #### P T, PTT #### [facility] [address] [place] [address] Dr. Mirza Sadler EGFR-AF SPANISH 46 mL/min/1.73m2 Critically low >=60 [facility] Comment on above: Performed By: #### P T, PTT #### [facility] [address] [place] [address] Dr. Mirza Sadler EGFR-NON AF SPANISH 38 mL/min/1.73m2 Critically low >=60 [facility] Comment on above: Performed By: #### P T, PTT #### [facility] [address] [place] [address] Dr. Mirza Sadler Globulin (S) [Mass/Vol] 3.5 g/dL Normal [facility] Comment on above: Performed By: #### P T, PTT #### [facility] [address] [place] [address] Dr. Mirza Sadler Glucose [Mass/Vol] 135 mg/dL Critically high 74-106 [facility] Comment on above: Performed By: #### P T, PTT #### [facility] [address] [place] [address] Dr. Mirza Sadler Potassium [Moles/Vol] 4.2 mmol/L Normal 3.5-5.1 [facility] Comment on above: Performed By: #### P T, PTT #### [facility] [address] [address] [address] Mirza Sadler Protein [Mass/Vol] 7.6 g/dL Normal 6.4-8.2 [facility] Comment on above: Performed By: #### P T, PTT #### [facility] [address] [address] [address] Mirza Sadler Sodium [Moles/Vol] 140 mmol/L Normal 136-145 [facility] Comment on above: Performed By: #### P T, PTT #### [facility] [address] [address] [address] Mirza Sadler Urea nitrogen [Mass/Vol] 17.0 mg/dL Normal 7.0-18.0 [facility] Comment on above: Performed By: #### P T, PTT #### [facility] [address] [address] [address] Mirza Sadler Urea nitrogen/Creatinine [Mass ratio] 9.6 mg/mg Normal [facility] Comment on above: Performed By: #### P T, PTT #### [facility] [address] [place] [address] Dr. Mirza Sadler US SINGLE QUAD RT [facility] US SINGLE QUAD RT UPPER EXAMINATION: US [...] by: HIGINIO FLANAGAN Date: 2021-08-27 08:40 Normal [facility] A1C HEMOGLOBINon 07-17-2021 HbA1c (Bld) [Mass fraction] 6.9 % [employer] Other Glucose - FINGER STICKon Glucose [Mass/Vol] 180 mg/dL [employer] Other HbA1c (Bld) [Mass fraction]o n 07-17-2021 A1C HEMOGLOBIN CV [employer] Other A1C with Estimated Average G luon 04-10-2021 HbA1c (Bld) [Mass fraction] 6.4 % [employer] Other HbA1c (Bld) [Mass fraction] 243 % [employer] Other Glucoseon 04-10-2021 Glucose [Mass/Vol] 243 mg/dL [employer] Other A1C HEMOGLOBINon 01-03-2021 HbA1c (Bld) [Mass fraction] 6.6 % [employer] Other Glucose - FINGER STICKon Glucose [Mass/Vol] 142 mg/dL [employer] Other HbA1c (Bld) [Mass fraction]o n 01-03-2021 A1C HEMOGLOBIN CV [employer] Other CNPNon 10-27-2020 CNPN Telephone (HEMASA) -- LANI LIZAMA ([id number]) 1950 M Date Time Provider Department 10/27/20 CHAZ, ANGELINE HEMASA During your visit today, we recorded the [...] Status:Closed by ANGELINE WARE on 10/28/20 Normal [facility] Cardiovascular Lab Reporton 10-16-2018 Cardiovascular Lab Report [facility] Patient Name: [facility] MR #: [id number] Physician: Pinky Bishop, Department of M.D. Medicine Service Date: 10/15/2018 Division of Birthdate: 1950 Cardiology Room #: [id number] Adult Cardiovascular Services [place] [address] Cardiovascular Laboratory Report FINAL IMPRESSIONS: 1. Severe three-vessel bad river band coronary artery disease. 2. Fsse-km-wqai bypass grafts patent. 3. Mild in-stent restenosis [...] 4. Follow up with me in the [facility] in the next 4-6 weeks. 5. Follow [...] guidance and using a micropuncture kit. A 6-[place] Glidesheath was inserted without difficulty. Coronary angiography [...] of the vessel. There is evidence of ypyd-ka-wcuwk collaterals. The distal vessel is supplied via [...] is a long stented segment in the gwotuvii-kw-zagdnj portion of the vessel with 30% in-stent restenosis. The vessel distal to the touchdown shows caliber reduction and no discrete stenosis. There is diffuse disease in the branches. Saphenous vein graft to the posterior descending artery. This is widely patent. It shows an extensive stented segment from gjqdkvuf-fz-mbnsdlogxw of the vessel. There is a 40%-50% [...] Bishop M.D. Date Trans: 10/16/2018 05:01 Brandie [id number] cc: Harley Crespo D.O. [address] [place] [phone] Normal [facility] BASIC METABOLIC PANELon 09-29 Calcium [Mass/Vol] 8.9 mg/dL Normal 8.6-10.3 [facility] Comment on above: Order Comment: No: D o not add to previous draw Performed By: #### 1 0070, 20651 #### [facility] [address] [place] [address], [place] Chloride [Moles/Vol] 110 mmol/L High 98-107 [facility] Comment on above: Order Comment: No: D o not add to previous draw Performed By: #### 1 0070, [id number] #### [facility] [address] [place] [address], [place] CO2 [Moles/Vol] 26 mmol/L Normal 21-31 [facility] Comment on above: Order Comment: No: D o not add to previous draw Performed By: #### 1 69, 52384 #### [facility] [address] [place] [address], [place] Creatinine [Mass/Vol] 1.52 mg/dL High 0.70-1.30 [facility] Comment on above: Order Comment: No: D o not add to previous draw Performed By: #### 1 69, 14611 #### [facility] [address] [place] [address], [place] GFR/1.73 sq M predicted among blacks MDRD (S/P/Bld) [Vol rate/Area] 56 ml/min/1.73sq m Abnormal >60 [facility] Comment on above: Order Comment: No: D o not add to previous draw Performed By: #### 1 69, 16962 #### [facility] [address] [place] [address], [place] GFR/1.73 sq M predicted among non-blacks MDRD (S/P/Bld) [Vol rate/Area] 46 ml/min/1.73sq m Abnormal >60 [facility] Comment on above: Order Comment: No: D o not add to previous draw Performed By: #### 1 69, 74361 #### [facility] [address] [place] [address], [place] Glucose [Mass/Vol] 89 mg/dL Normal 70-100 [facility] Comment on above: Order Comment: No: D o not add to previous draw Performed By: #### 1 69, 79133 #### [facility] [address] [place] [address], [place] Potassium [Moles/Vol] 3.9 mmol/L Normal 3.5-5.1 [facility] Comment on above: Order Comment: No: D o not add to previous draw Performed By: #### 1 69, 55217 #### [facility] [address] Sodium [Moles/Vol] 141 mmol/L Normal 136-145 [facility] Comment on above: Order Comment: No: D o not add to previous draw Performed By: #### 1 0070, 73660 #### [facility] [address] Urea nitrogen [Mass/Vol] 19 mg/dL Normal 7-25 [facility] Comment on above: Order Comment: No: D o not add to previous draw Performed By: #### 1 0, 37866 #### [facility] [address] [place] [address], [facility] CBC W/DIFFon 10-15-2018 ABS BASOPHILS 0.1 10*3/uL Normal 0.0-0.2 [facility] Comment on above: Order Comment: No: D o not add to previous draw Performed By: #### 5 0103 #### [facility] [address] ABS IMM GRANS 0.0 10*3/uL Normal 0.0-0.2 [facility] Comment on above: Order Comment: No: D o not add to previous draw Performed By: #### 5 0103 #### [facility] [address] [facility] [address] ABS NEUTROPHILS 3.5 10*3/uL Normal 1.6-7.6 [facility] Comment on above: Order Comment: No: D o not add to previous draw Performed By: #### 5 0103 #### [facility] [address] [place] [address], [facility] Basophils/100 WBC (Bld) 0.8 % Normal 0.0-1.0 [facility] Comment on above: Order Comment: No: D o not add to previous draw Performed By: #### 5 0103 #### [facility] [address] Eosinophils (Bld) [#/Vol] 0.3 10*3/uL Normal 0.0-0.5 [facility] Comment on above: Order Comment: No: D o not add to previous draw Performed By: #### 5 0103 #### [facility] [address] [place] [address], [facility] Eosinophils/100 WBC (Bld) 3.9 % Normal 0.0-6.0 [facility] Comment on above: Order Comment: No: D o not add to previous draw Performed By: #### 5 3 #### [facility] [address] [facility] [address] Erythrocyte distribution width (RBC) [Ratio] 13.5 % Normal 11.5-15.0 [facility] Comment on above: Order Comment: No: D o not add to previous draw Performed By: #### 5 3 #### [facility] [address] Hematocrit (Bld) [Volume fraction] 39.7 % Normal 39.0-50.0 [facility] Comment on above: Order Comment: No: D o not add to previous draw Performed By: #### 5 3 #### [facility] [address] [place] [address], [facility] Hemoglobin (Bld) [Mass/Vol] 13.0 g/dL Normal 13.0-17.0 [facility] Comment on above: Order Comment: No: D o not add to previous draw Performed By: #### 5 0103 #### [facility] [address] [place] [address], [facility] IMMATURE GRANS 0.3 % Normal 0.0-1.0 [facility] Comment on above: Order Comment: No: D o not add to previous draw Performed By: #### 5 3 #### [facility] [address] [place] [address], [facility] Lymphocytes (Bld) [#/Vol] 1.9 10*3/uL Normal 1.2-4.0 [facility] Comment on above: Order Comment: No: D o not add to previous draw Performed By: #### 5 0103 #### [facility] [address] [place] [address], [facility] Lymphocytes/100 WBC (Bld) 30.1 % Normal 20.0-45.0 [facility] Comment on above: Order Comment: No: D o not add to previous draw Performed By: #### 5 0103 #### [facility] [address] [facility] [address] MCH (RBC) [Entitic mass] 30.0 pg Normal 27.0-33.0 [facility] Comment on above: Order Comment: No: D o not add to previous draw Performed By: #### 5 0103 #### [facility] [address] MCHC (RBC) [Mass/Vol] 32.7 g/dL Normal 32.0-35.0 [facility] Comment on above: Order Comment: No: D o not add to previous draw Performed By: #### 5 0103 #### [facility] [address] MCV (RBC) [Entitic vol] 91.5 fL Normal 82.0-98.0 [facility] Comment on above: Order Comment: No: D o not add to previous draw Performed By: #### 5 0103 #### [facility] [address] [place] [address], [facility] Monocytes (Bld) [#/Vol] 0.7 10*3/uL Normal 0.1-1.0 [facility] Comment on above: Order Comment: No: D o not add to previous draw Performed By: #### 5 0103 #### [facility] [address] [place] [address], [facility] MONOS 10.7 % Normal 5.0-12.0 [facility] Comment on above: Order Comment: No: D o not add to previous draw Performed By: #### 5 0103 #### [facility] [address] [place] [id number], [facility] Neutrophils/100 WBC (Bld) 54.2 % Normal 40.0-72.0 [facility] Comment on above: Order Comment: No: D o not add to previous draw Performed By: #### 5 0103 #### [facility] [address] [place] [id number], [facility] Nucleated RBC/100 WBC (Bld) [Ratio] 0 % Normal 0-0 [facility] Comment on above: Order Comment: No: D o not add to previous draw Performed By: #### 5 0103 #### [facility] [address] [facility] [place] [address], [facility] PLAT CNT 164 10*3/uL Normal 150-400 [facility] Comment on above: Order Comment: No: D o not add to previous draw Performed By: #### 5 0103 #### [facility] [address] [facility] [place] [address], [facility] RBC (Bld) [#/Vol] 4.34 10*6/uL Normal 4.20-5.70 [facility] Comment on above: Order Comment: No: D o not add to previous draw Performed By: #### 5 0103 #### [facility] [address] [place] [address], [facility] WBC (Bld) [#/Vol] 6.38 10*3/uL Normal 4.00-10.60 [facility] Comment on above: Order Comment: No: D o not add to previous draw Performed By: #### 5 0103 #### [facility] [address] [place] [id number], [facility] MAGNESIUM BLOODon 10-15-2018 Magnesium [Mass/Vol] 2.0 mg/dL Normal 1.9-2.7 [facility] Comment on above: Order Comment: No: D o not add to previous draw Performed By: #### 1 0070, 51776 #### [facility] [address] [place] [address], [facility] PROTHROMBIN TIMEon 9 INR Coag (PPP) [Relative time] 1.11 {INR} Normal 0.91-1.16 [facility] Comment on above: Order Comment: No: D [...] 1995;108:[id number]. Performed By: #### 5 6101 #### [facility] [address] [place] [address], [facility] PT Coag (PPP) [Time] 14.3 s Normal 12.3-14.8 [facility] Comment on above: Order Comment: No: D o not add to previous draw Result Comment: ALL RESULTS MUST BE INTERPRETED WITH RESPECT TO BLOOD DRAWING ARTIFACT OR DILUTION ERROR OF ANTICOAGULANT AT THE TIME OF SAMPLING. Performed By: #### 5 6101 #### [facility] [address] [place] [address], [facility] POC GLUCOSE LABon 10-14-2018 Glucose [Mass/Vol] 180 mg/dL High 70-100 [facility] Comment on above: Performed By: #### 8 5499 #### [facility] [address] Cardiovascular Lab Reporton 02-25-2018 Cardiovascular Lab Report [facility] Patient Name: Lani Lizama [facility] MR #: [id number] Physician: Pinky Bishop Department of M.D. Medicine Service Date: 02/24/2018 Division of Birthdate: 1950 Cardiology Room #: [id number] Adult Cardiovascular Services [facility] [address] [facility] [place] [address] Cardiovascular Laboratory Report FINAL IMPRESSIONS: 1. 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 2. Severe 3-vessel bad river band coronary artery disease. 3. 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 4. Kinwjgoj-vi-goztqy systemic hypertension. RECOMMENDATIONS: 1. Aspirin 81 mg lifelong. 2. Plavix 75 mg daily for a minimum of 6 months, preferably halfway. 3. Aggressive cardiovascular risk factor modification. 4. Optimization of medical management; high intensity statin therapy as tolerated, we will switch his Toprol-XL to Coreg 25 mg p.o. b.i.d., and angiotensin-converting enzyme inhibitor. 5. Follow up with me in the [facility] in the next 2-3 weeks. 6. Follow up with Dr. Crespo as scheduled. PROCEDURES: Limited femoral angiography, bilateral selective coronary angiography, saphenous vein graft angiography, angiography of the left internal mammary artery graft, limited angiography of the left subclavian, percutaneous balloon angioplasty, and Synergy drug-eluting stent placement to the saphenous vein graft to the obtuse marginal, placement of a 6-[place]er MYNXGRIP closure device. METHODS: After risks, benefits, and alternatives were explained, written informed consent was obtained. The patient was prepped and draped in usual sterile fashion over both groins. Using 1% lidocaine solution, local infiltration anesthesia was achieved over the right groin. Using a micropuncture kit, access of the right common femoral artery was obtained. A 6-[place]er 11 cm sheath was exchanged then without [...] to proceed with an interventional procedure. A 6-[place]er JR4 guide catheter was advanced in and [...] the procedure. All catheters were removed. A 6-[place] MYNXGRIP closure device was deployed per protocol [...] is a 30% touchdown stenosis of the bad river band vessel. There is evidence of qfjn-fk-rkqey collaterals supplying the distal right coronary artery. Limited femoral angiography, this shows mild plaque and anatomy suitable for closure device. INDICATIONS: Unstable angina. Electronically Signed by: Pinky Bishop M.D. 03/06/2018 12:15 P Pinky Bishop M.D. Date Dict: 02/24/2018/01:39 P/Pinky Bishop M.D. Date Trans: 02/25/2018 02:12 Nakul/gatito [id number] cc: Harley Crespo D.O. [address] [place] [phone] Normal [facility] POC GLUCOSE LABon 02-25-2018 Glucose [Mass/Vol] 150 mg/dL High 70-100 [facility] Comment on above: Performed By: #### 8 5499 #### [facility] [address] [place] [address], [facility] POC GLUCOSE LABon 02-24-2018 Glucose [Mass/Vol] 192 mg/dL High 70-100 [facility] Comment on above: Performed By: #### 8 5499 #### [facility] [address] [place] [address], [facility] Glucose [Mass/Vol] 186 mg/dL High 70-100 [facility] Comment on above: Performed By: #### 8 5499 #### [facility] [address] [place] [address], [facility] Vital Signs Date Time Vital Sign Value Performing Clinician Facility 05-03-2023 09:30-0500 Body height 170.18 cm DO Harley Ball Work Phone: [facility] 05-03-2023 09:30-0500 Body weight 77.29 kg DO Harley Ball Work Phone: [facility] 05-03-2023 09:30-0500 Diastolic blood pressure 85 mm[Hg] DO Harley Ball Work Phone: [facility] 05-03-2023 09:30-0500 Systolic blood pressure 126 mm[Hg] DO Harley Ball Work Phone: [facility] 03-12-2023 11:15-0500 Body height 170.18 cm Tondra Mapus Other [facility] 03-12-2023 11:15-0500 Body mass index (BMI) [Ratio] 27.03 kg/m2 Tondra Mapus Other [employer] Other 03-12-2023 11:15-0500 Body weight 78.29 kg Tondra Mapus Other [facility] 03-12-2023 11:15-0500 Diastolic blood pressure 79 mm[Hg] Tondra Mapus Other [facility] 03-12-2023 11:15-0500 Respiratory rate 18 /min Tondra Mapus Other [employer] Other 03-12-2023 11:15-0500 SaO2% (BldA) [Mass fraction] 98 % Tondra Mapus Other [employer] Other 03-12-2023 11:15-0500 Systolic blood pressure 128 mm[Hg] Tondra Mapus Other [facility] 01-07-2023 10:00-0400 Body height 170.18 cm Kingsley Latisha Other [employer] Other 01-07-2023 10:00-0400 Body mass index (BMI) [Ratio] 27 kg/m2 Kingsley Latisha Other [employer] Other 01-07-2023 10:00-0400 Body temperature 97.7 [degF] Kingsley Latisha Other [employer] Other 01-07-2023 10:00-0400 Body weight 78.2 kg Kingsley Latisha Other [employer] Other 01-07-2023 10:00-0400 Diastolic blood pressure 73 mm[Hg] Kingsley Latisha Other [employer] Other 01-07-2023 10:00-0400 Respiratory rate 16 /min Kingsley Latisha Other [employer] Other 01-07-2023 10:00-0400 SaO2% (BldA) [Mass fraction] 98 % Kingsley Latisha Other [employer] Other 01-07-2023 10:00-0400 Systolic blood pressure 108 mm[Hg] Kingsley Latisha Other [employer] Other 12-31-2022 09:30-0400 Body height 170.18 cm Harley Ball Other [employer] Other 12-31-2022 09:30-0400 Body mass index (BMI) [Ratio] 27.03 kg/m2 Harley Ball Other [employer] Other 12-31-2022 09:30-0400 Body weight 78.29 kg Harley Ball Other [employer] Other 12-31-2022 09:30-0400 Diastolic blood pressure 69 mm[Hg] Harley Ball Other [employer] Other 12-31-2022 09:30-0400 Respiratory rate 16 /min Harley Ball Other [employer] Other 12-31-2022 09:30-0400 Systolic blood pressure 102 mm[Hg] Harley Ball Other [employer] Other 08-31-2022 08:45-0400 Body height 170.18 cm Harley Ball Other [employer] Other 08-31-2022 08:45-0400 Body mass index (BMI) [Ratio] 26.72 kg/m2 Harley Ball Other [employer] Other 08-31-2022 08:45-0400 Body weight 77.38 kg Harley Ball Other [employer] Other 08-31-2022 08:45-0400 Diastolic blood pressure 69 mm[Hg] Harley Ball Other [employer] Other 08-31-2022 08:45-0400 Respiratory rate 12 /min Harley Ball Other [employer] Other 08-31-2022 08:45-0400 Systolic blood pressure 102 mm[Hg] Harley Ball Other [employer] Other 07-02-2022 10:40-0400 Body height 170.18 cm Kingsley Latisha Other [employer] Other 07-02-2022 10:40-0400 Body mass index (BMI) [Ratio] 27.69 kg/m2 Kingsley Latisha Other [employer] Other 07-02-2022 10:40-0400 Body temperature 96.4 [degF] Kingsley Latisha Other [employer] Other 07-02-2022 10:40-0400 Body weight 80.2 kg Kingsley Latisha Other [employer] Other 07-02-2022 10:40-0400 Diastolic blood pressure 71 mm[Hg] Kingsley Latisha Other [employer] Other 07-02-2022 10:40-0400 Respiratory rate 16 /min Kingsley Latisha Other [employer] Other 07-02-2022 10:40-0400 SaO2% (BldA) [Mass fraction] 97 % Kingsley Latisha Other [employer] Other 07-02-2022 10:40-0400 Systolic blood pressure 115 mm[Hg] Kingsley Morar Other [employer] Other 06-28-2022 09:30-0400 Body height 170.18 cm Harley Ball Other [employer] Other 06-28-2022 09:30-0400 Body mass index (BMI) [Ratio] 27.16 kg/m2 Harley Ball Other [employer] Other 06-28-2022 09:30-0400 Body weight 78.65 kg Harley Ball Other [employer] Other 06-28-2022 09:30-0400 Diastolic blood pressure 66 mm[Hg] Harley Ball Other [employer] Other 06-28-2022 09:30-0400 Respiratory rate 12 /min Harley Ball Other [employer] Other 06-28-2022 09:30-0400 Systolic blood pressure 115 mm[Hg] Harley Ball Other [employer] Other 06-26-2022 08:45-0400 Body height 170.18 cm Tondra Mapus Other [employer] Other 06-26-2022 08:45-0400 Body mass index (BMI) [Ratio] 27.75 kg/m2 Tondra Mapus Other [employer] Other 06-26-2022 08:45-0400 Body weight 80.38 kg Tondra Mapus Other [employer] Other 06-26-2022 08:45-0400 Diastolic blood pressure 61 mm[Hg] Tondra Mapus Other [employer] Other 06-26-2022 08:45-0400 Respiratory rate 16 /min Tondra Mapus Other [employer] Other 06-26-2022 08:45-0400 SaO2% (BldA) [Mass fraction] 96 % Tondra Mapus Other [employer] Other 06-26-2022 08:45-0400 Systolic blood pressure 105 mm[Hg] Tondra Mapus Other [employer] Other 03-20-2022 09:15-0500 Body height 170.18 cm Tondra Mapus Other [employer] Other 03-20-2022 09:15-0500 Body mass index (BMI) [Ratio] 26.15 kg/m2 Tondra Mapus Other [employer] Other 03-20-2022 09:15-0500 Body weight 75.75 kg Tondra Mapus Other [employer] Other 03-20-2022 09:15-0500 Diastolic blood pressure 57 mm[Hg] Tondra Mapus Other [employer] Other 03-20-2022 09:15-0500 Respiratory rate 16 /min Tondra Mapus Other [employer] Other 03-20-2022 09:15-0500 SaO2% (BldA) [Mass fraction] 98 % Tondra Mapus Other [employer] Other 03-20-2022 09:15-0500 Systolic blood pressure 117 mm[Hg] Tondra Desireeus Other [employer] Other 01-17-2022 11:45-0400 Body height 170.18 cm DO Harley Ball Work Phone: [facility] 01-17-2022 11:22-0400 Diastolic blood pressure 68 mm[Hg] DO Harley Ball Work Phone: [facility] 01-17-2022 11:22-0400 Heart rate 60 /min DO Harley Ball Work Phone: [facility] 01-17-2022 11:22-0400 Systolic blood pressure 118 mm[Hg] DO Harley Ball Work Phone: [facility] 01-17-2022 11:05-0400 Body temperature 97.4 [degF] DO Harley Ball Work Phone: [facility] 01-17-2022 11:05-0400 Respiratory rate 18 /min DO Harley Ball Work Phone: [facility] 01-17-2022 11:05-0400 SaO2% (BldA) [Mass fraction] 95 % DO Harley Ball Work Phone: [facility] 01-17-2022 06:58-0400 Body weight 77.9 kg DO Harley Ball Work Phone: [facility] 01-15-2022 15:23-0400 Inhaled oxygen flow rate 2 L/min DO Harley Ball Work Phone: [facility] 12-18-2021 09:45-0400 Body height 170.18 cm Tondra Ramírezus Other [employer] Other 12-18-2021 09:45-0400 Body mass index (BMI) [Ratio] 27.25 kg/m2 Tondra Desireeus Other [employer] Other 12-18-2021 09:45-0400 Body weight 78.93 kg Tondra Mapus Other [employer] Other 12-18-2021 09:45-0400 Diastolic blood pressure 65 mm[Hg] Tondra Mapus Other [employer] Other 12-18-2021 09:45-0400 Respiratory rate 16 /min Tondra Mapus Other [employer] Other 12-18-2021 09:45-0400 SaO2% (BldA) [Mass fraction] 97 % Tondra Mapus Other [employer] Other 12-18-2021 09:45-0400 Systolic blood pressure 133 mm[Hg] Tondra Mapus Other [employer] Other 09-29-2021 13:13-0400 Blood Pressure Location [facility] [employer] General Surgery Luis Enrique 09-29-2021 13:13-0400 Diastolic blood pressure 74 mm[Hg] Gagan NILL General Surgery Luis Enrique 09-29-2021 13:13-0400 Heart rate 60 /min Gagan NILL General Surgery Luis Enrique 09-29-2021 13:13-0400 Respiratory rate 16 /min Gagan NILL General Surgery Luis Enrique 09-29-2021 13:13-0400 Systolic blood pressure 138 mm[Hg] Gagan NILL General Surgery [place] 07-17-2021 09:45-0400 Body height 170.18 cm Tondra Mapus Other [employer] Other 07-17-2021 09:45-0400 Body mass index (BMI) [Ratio] 30.69 kg/m2 Tondra Mapus Other [employer] Other 07-17-2021 09:45-0400 Body weight 88.91 kg Tondra Mapus Other [employer] Other 07-17-2021 09:45-0400 Diastolic blood pressure 73 mm[Hg] Tondra Mapus Other [employer] Other 07-17-2021 09:45-0400 Respiratory rate 16 /min Tondra Mapus Other [employer] Other 07-17-2021 09:45-0400 SaO2% (BldA) [Mass fraction] 97 % Tondra Mapus Other [employer] Other 07-17-2021 09:45-0400 Systolic blood pressure 163 mm[Hg] Tondra Mapus Other [employer] Other 06-06-2021 10:20-0500 Body height 170.18 cm Kingsley Latisha Other [employer] Other 06-06-2021 10:20-0500 Body mass index (BMI) [Ratio] 30.29 kg/m2 Kingsley Latisha Other [employer] Other 06-06-2021 10:20-0500 Body temperature 96.1 [degF] Kingsley Latisha Other [employer] Other 06-06-2021 10:20-0500 Body weight 87.73 kg Kingsley Latisha Other [employer] Other 06-06-2021 10:20-0500 Diastolic blood pressure 70 mm[Hg] Kingsley Latisha Other [employer] Other 06-06-2021 10:20-0500 Respiratory rate 18 /min Kingsley Latisha Other [employer] Other 06-06-2021 10:20-0500 SaO2% (BldA) [Mass fraction] 97 % Kingsley Latisha Other [employer] Other 06-06-2021 10:20-0500 Systolic blood pressure 160 mm[Hg] Kingsley Latisha Other [employer] Other 04-10-2021 09:15-0500 Body height 170.18 cm Tondra Mapus Other [employer] Other 04-10-2021 09:15-0500 Body mass index (BMI) [Ratio] 30.99 kg/m2 Tondra Mapus Other [employer] Other 04-10-2021 09:15-0500 Body weight 89.77 kg Tondra Mapus Other [employer] Other 04-10-2021 09:15-0500 Diastolic blood pressure 64 mm[Hg] Tondra Mapus Other [employer] Other 04-10-2021 09:15-0500 Respiratory rate 18 /min Tondra Mapus Other [employer] Other 04-10-2021 09:15-0500 SaO2% (BldA) [Mass fraction] 98 % Tondra Mapus Other [employer] Other 04-10-2021 09:15-0500 Systolic blood pressure 136 mm[Hg] Tondra Desireeus Other [employer] Other 02-14-2021 10:00-0500 Body height 170.18 cm Kingsley Latisha Other [employer] Other 02-14-2021 10:00-0500 Body mass index (BMI) [Ratio] 30.98 kg/m2 Kingsley Latisha Other [employer] Other 02-14-2021 10:00-0500 Body temperature 96 [degF] Kingsley Latisha Other [employer] Other 02-14-2021 10:00-0500 Body weight 89.72 kg Kingsley Latisha Other [employer] Other 02-14-2021 10:00-0500 Diastolic blood pressure 60 mm[Hg] Kingsley Latisha Other [employer] Other 02-14-2021 10:00-0500 Respiratory rate 16 /min Kingsley Latisha Other [employer] Other 02-14-2021 10:00-0500 SaO2% (BldA) [Mass fraction] 97 % Kingsley Latisha Other [employer] Other 02-14-2021 10:00-0500 Systolic blood pressure 130 mm[Hg] Kingsley Latisha Other [employer] Other 01-03-2021 10:15-0400 Body height 170.18 cm Tondra Mapus Other [employer] Other 01-03-2021 10:15-0400 Body mass index (BMI) [Ratio] 31.01 kg/m2 Tondra Mapus Other [employer] Other 01-03-2021 10:15-0400 Body weight 89.81 kg Tondra Mapus Other [employer] Other 01-03-2021 10:15-0400 Diastolic blood pressure 67 mm[Hg] Tondra Mapus Other [employer] Other 01-03-2021 10:15-0400 Respiratory rate 16 /min Tondra Mapus Other [employer] Other 01-03-2021 10:15-0400 SaO2% (BldA) [Mass fraction] 99 % Tondra Mapus Other [employer] Other 01-03-2021 10:15-0400 Systolic blood pressure 151 mm[Hg] Tondra Mapus Other [employer] Other Encounters Encounter Date Encounter Type Care Provider Facility Start: 05-07-2023 End: 05-07-2023 [facility] Start: 05-03-2023 End: 05-03-2023 Patient encounter procedure DO Harley Cherie Work Phone: [facility] Start: 04-30-2023 Telephone encounter Kingsley Latisha [facility] Start: 04-30-2023 End: 04-30-2023 ambulatory LAILA [facility] [employer] Other Start: 04-23-2023 End: 04-23-2023 ambulatory Arlen Kwong Other [employer] Other Start: 04-23-2023 Telephone encounter Arlen Kwong [facility] Start: 03-18-2023 End: 03-18-2023 ambulatory LAILA [facility] Start: 03-12-2023 (DM[facility] Start: 03-12-2023 End: 03-13-2023 ambulatory DO Harley Crespo Work Phone: [facility] [employer] Other Start: 03-12-2023 End: 03-12-2023 Discharged Recurring DO Harley Crespo Work Phone: [facility] Work Phone: Start: 03-12-2023 End: 03-12-2023 Patient encounter procedure DO Harley Cherie Work Phone: [facility] Work Phone: Start: 03-07-2023 End: 03-07-2023 ambulatory [facility] Start: 03-05-2023 End: 03-05-2023 ambulatory KEVIN [facility] Start: 02-19-2023 End: 02-19-2023 [facility] Start: 02-12-2023 Telephone encounter Harley HERRMANN [facility] Start: 02-12-2023 End: 02-12-2023 ambulatory KEVIN [facility] [employer] Other Start: 02-07-2023 End: 02-07-2023 ambulatory Harley Crespo Other [employer] Other Start: 02-07-2023 Telephone encounter Harley Garcia [facility] Start: 02-06-2023 End: 02-06-2023 ambulatory Arlen Kwong Other [employer] Other Start: 02-06-2023 Telephone encounter Arlen Shane [facility] Start: 02-01-2023 End: 02-01-2023 ambulatory LAILA [facility] Start: 01-29-2023 End: 01-29-2023 ambulatory Harley Crespo Other [employer] Other Start: 01-29-2023 Telephone encounter Harley Garcia [facility] Start: 01-25-2023 End: 01-28-2023 Evaluation and management of inpatient DELTA [facility] Start: 01-17-2023 Telephone encounter Arlen Kwong [facility] Start: 01-17-2023 End: 01-17-2023 [facility] [employer] Other Start: 01-07-2023 End: 01-07-2023 ambulatory Harley Crespo Other [employer] Other Start: 01-07-2023 Office outpatient visit 25 minutes Kingsley Latisha [facility] Start: 01-07-2023 Telephone encounter Harley Garcia [facility] Start: 01-04-2023 End: 01-04-2023 ambulatory Kingsley Latisha Other [employer] Other Start: 01-04-2023 Telephone encounter Kingsley Latisha [facility] Start: 01-01-2023 End: 01-01-2023 ambulatory Kingsley Latisha Other [employer] Other Start: 01-01-2023 Telephone encounter Kingsley Latisha [facility] Start: 12-31-2022 End: 12-31-2022 ambulatory Harley Crespo Other [employer] Other Start: 12-31-2022 Office outpatient visit 25 minutes Harley Crespo [facility] Start: 12-31-2022 Telephone encounter Harley HERRMANN [facility] Start: 12-13-2022 End: 12-13-2022 ambulatory Denita Chairez Other [employer] Other Start: 12-13-2022 Nursing evaluation o f patient and report Denita Chairez [facility] Start: 11-23-2022 End: 11-23-2022 ambulatory Tondra Mapus Other [employer] Other Start: 11-23-2022 Telephone encounter Tondra Mapus [facility] Start: 10-12-2022 End: 10-12-2022 ambulatory Tondra Mapus Other [employer] Other Start: 10-12-2022 Telephone encounter Tondra Mapus [facility] Start: 10-09-2022 Telephone encounter Harley HERRMANN [facility] Start: 10-09-2022 End: 10-09-2022 [facility] [employer] Other Start: 10-01-2022 End: 10-01-2022 ambulatory Harley Crespo Other [employer] Other Start: 10-01-2022 Telephone encounter Harley HERRMANN [facility] Start: 09-27-2022 End: 09-27-2022 ambulatory Kingsley Latisha Other [employer] Other Start: 09-27-2022 Telephone encounter Kingsley Latisha [facility] Start: 09-26-2022 End: 09-26-2022 ambulatory Harley Crespo Other [employer] Other Start: 09-26-2022 Telephone encounter Harley Crespo FP [facility] Start: 09-19-2022 End: 09-19-2022 ambulatory Kingsley Latisha Other [employer] Other Start: 09-19-2022 Telephone encounter Kingsley Latisha [facility] Start: 09-12-2022 End: 09-12-2022 ambulatory Harley Crespo Other [employer] Other Start: 09-12-2022 Telephone encounter Harley Crespo MONTEZ [facility] Start: 09-03-2022 End: 09-03-2022 ambulatory Harley Crespo Other [employer] Other Start: 09-03-2022 Telephone encounter Harley Cherie HERRMANN [facility] Start: 08-31-2022 End: 08-31-2022 ambulatory Harley Crespo Other [employer] Other Start: 08-31-2022 Office outpatient visit 25 minutes Harley Crespo [facility] Start: 08-10-2022 End: 08-10-2022 ambulatory Harley Cherie Other [employer] Other Start: 08-10-2022 Telephone encounter Harley Cherie HERRMANN [facility] Start: 08-09-2022 End: 08-10-[address] [facility] [employer] Other Start: 08-09-2022 Telephone encounter Kingsley Latisha [facility] Start: 07-31-2022 End: 07-31-2022 ambulatory KEVIN ARTEAGA [facility] Start: 07-24-2022 End: 07-24-2022 [facility] Start: 07-02-2022 End: 07-02-2022 ambulatory Kingsley Latisha Other [employer] Other Start: 07-02-2022 Office outpatient visit 25 minutes Kingsley Latisha [facility] Start: 06-28-2022 End: 06-28-2022 ambulatory Harley Crespo Other [employer] Other Start: 06-28-2022 Patient encounter procedure Harley Crespo [facility] Start: 06-26-2022 (DM) Diabetes Tondra Mapus [facility] Start: 06-26-2022 End: 06-26-2022 ambulatory Tondra Mapus Other [employer] Other Start: 06-25-2022 End: 06-25-2022 ambulatory [facility] Start: 06-25-2022 End: 06-26-2022 ambulatory KINGSLEY LATISHA Facility:[facility] Start: 06-18-2022 End: 06-19-2022 ambulatory TONDRA MAPUS Facility:[facility] Start: 06-05-2022 End: 06-06-[address] HARLEY CRESPO Facility:[facility] Start: 05-29-2022 End: 05-29-2022 ambulatory [facility] Start: 05-26-2022 End: 05-26-2022 ambulatory Harley Crespo Other [employer] Other Start: 05-26-2022 Telephone encounter Harley Crespo [facility] Start: 05-25-2022 End: 05-25-2022 ambulatory Tondra Mapus Other [employer] Other Start: 05-25-2022 Telephone encounter Tondra Mapus [facility] Start: 05-03-2022 End: 05-04-[address] PINKY BISHOP Facility:[facility] Start: 04-18-2022 End: 04-19-[address] PINKY BISHOP Facility:[facility] Start: 03-22-2022 End: 03-23-[address] HIGINIO FLANAGAN Facility:[facility] Start: 03-20-2022 (DM) Diabetes Tondra Mapus [facility] Start: 03-20-2022 End: 03-20-2022 ambulatory Tondra Mapus Other [employer] Other Start: 03-12-2022 End: 03-13-2022 Evaluation and management of inpatient DR PARUL CHU Facility:[facility] Start: 03-09-2022 End: 03-10-[address] SHANNON LANDIS Facility:[facility] Start: 03-02-2022 End: 03-03-[address] HARLEY CRESPO Facility:[facility] Start: 02-19-2022 End: 02-19-2022 ambulatory Tondra Mapus Other [employer] Other Start: 02-19-2022 Telephone encounter Tondra Mapus [facility] Start: 02-08-2022 End: 02-08-2022 ambulatory Tondra Mapus Other [employer] Other Start: 02-08-2022 Telephone encounter Tondra Mapus [facility] Start: 01-15-2022 End: 01-17-2022 Evaluation and management of inpatient DO Harley Crespo Work Phone: [facility] [place] [facility] Start: 01-15-2022 End: 01-15-[address] HARLEY CRESPO Facility:[facility] Start: 12-18-2021 Registered Recurring DO Zamudio in [place] Work Phone: [facility] Start: 12-18-2021 (DM) Diabetes Tondra Mapus [facility] Start: 12-18-2021 End: 12-18-2021 ambulatory Tondra Mapus Other [employer] Other Start: 12-08-2021 End: 12-09-[address] HARLEY CRESPO Facility:[facility] Start: 11-30-2021 End: 12-01-2021 ambulatory KINGSLEY GOOD Facility:[facility] Start: 11-24-2021 End: 11-25-[address] HARLEY CRESPO Facility:[facility] Start: 11-16-2021 End: 11-16-2021 ambulatory Tondra Mapus Other [employer] Other Start: 11-16-2021 Telephone encounter Tondra Mapus [facility] Start: 2021 End: 2021 ambulatory Tondra Mapus Other [employer] Other Start: 2021 Telephone encounter Tondra Mapus [facility] Start: 10-31-2021 End: 10-31-2021 ambulatory Tondra Mapus Other [employer] Other Start: 10-31-2021 Telephone encounter Tondra Mapus [facility] Start: 10-27-2021 End: 10-27-[address] HARLEY CRESPO Facility:[facility] Start: 10-20-2021 Telephone encounter Abdon martins MD Work Phone: Hematology/Oncology Comment on above: Lab Orders Start: 10-03-2021 End: 10-04-[address] GAGAN DAVID . Facility:[facility] Start: 09-29-2021 End: 09-29-2021 Patient encounter procedure Gagan DAVID General Surgery [facility] [place] Start: 09-04-2021 End: 09-05-[address] HARLEY CRESPO Facility:[facility]1 Start: 08-26-2021 End: 08-27-[address] HARLEY CRESPO Facility:[facility] Start: 07-24-2021 End: 07-24-2021 ambulatory Tondra Mapus Other [employer] Other Start: 07-24-2021 Telephone encounter Tondra Mapus [facility] Start: 07-17-2021 (DM) Diabetes Tondra Mapus [facility] Start: 07-17-2021 End: 07-17-2021 ambulatory Tondra Mapus Other [employer] Other Start: 06-19-2021 End: 06-19-2021 ambulatory Shannon Escobar Other [employer] Other Start: 06-19-2021 Telephone encounter Shannon Escobar [facility] Start: 06-06-2021 End: 06-06-2021 ambulatory Kingsley Latisha Other [employer] Other Start: 06-06-2021 Office outpatient visit 25 minutes Kingsley Latisha [facility] Start: 05-22-2021 End: 05-22-2021 ambulatory Tondra Mapus Other [employer] Other Start: 05-22-2021 Telephone encounter Tondra Mapus [facility] Start: 05-16-2021 End: 05-16-2021 ambulatory Tondra Mapus Other [employer] Other Start: 05-16-2021 Telephone encounter Tondra Mapus [facility] Start: 04-10-2021 (DM) Diabetes Tondra Mapus [facility] Start: 04-10-2021 End: 04-10-2021 ambulatory Tondra Mapus Other [employer] Other Start: 04-10-2021 Telephone encounter Tondra Mapus [facility] Start: 02-14-2021 End: 02-14-2021 ambulatory Kingsley Latisha Other [employer] Other Start: 02-14-2021 Patient encounter procedure Kingsley Latisha [facility] Start: 02-14-2021 Telephone encounter Tondra Mapus [facility] Start: 01-03-2021 (DM) Diabetes Tondra Mapus [facility] Start: 10-14-2018 End: 10-15-2018 Patient encounter procedure PINKY BISHOP Facility:[facility] Start: 02-24-2018 End: 02-25-2018 Evaluation and management of inpatient [facility] Procedures Date Procedure Procedure Detail Performing [...] Author Start: 10-26-2023 DIABETES SCREEN DIABETES SCREEN [facility] Start: 01-17-2022 [facility] Start: 01-17-2022 Radionuclide myocard ial perfusion stress study NM rachel perf SPECT rest & str [facility] Start: 01-17-2022 Referral to cardiac rehabilitation program [facility] Start: 01-16-2022 Hospital admission [facility] Start: 01-15-2022 Hospital admission [facility] Start: 11-30-2021 Influenza vaccination INFLUENZA (#1) [facility] Start: 10-24-2021 End: 12-24-2021 CBC W Auto Differential panel - Blood CBC + DIFF Lab Routine Monoclonal gammopathy Expected: 10/24/2021, Expires: 12/24/2021 [facility] Work Phone: Comment on above: Expected: 10/24/2021 , Expires: 12/24/2021 Start: 04-25-2021 Adult depression screening assessment DEPRESSION SCREENING [facility] Start: 04-01-2021 ADVANCE DIRECTIVE DISCUSSION ADVANCE DIRECTIVE DISCUSSION [facility] Start: 11-21-2020 COVID-19 VACCINE (3 - Booster for Pfizer series) COVID-19 VACCINE (3 - Booster for Pfizer series) [facility] Start: 11-07-2001 SHINGRIX VACCINE (1 of 2) SHINGRIX VACCINE (1 of 2) [facility] Start: 11-07-1996 COLOGUARD (FIT-DNA) COLOGUARD (FIT-D NA) [facility] Start: 11-07-1996 Colonoscopy COLONOSCOPY [facility] Start: 11-07-1996 COLORECTAL CANCER SCREENING COLORECTAL CANCER SCREENING [facility] Start: 11-07-[address] COLONOGRAPHY [facility] Start: 11-07-1996 FECAL OCCULT BLOOD FECAL OCCULT BLOO D [facility] Start: 11-07-1996 SIGMOIDOSCOPY SIGMOIDOSCOPY Lalaefrain kearns [facility] Start: 11-07-1986 LIPID SCREEN LIPID SCREEN [facility] Start: 11-07-1970 Urine microalbumin profile DTAP,TDAP,TD (1 - Tdap) [facility] Start: 11-07-1969 HEPATITIS C SCREENING HEPATITIS C SC REENING [facility] Start: 1950 ABDOMINAL AORTIC ANEURYSM SCREENING ABDOMINAL AORTIC ANEURYSM SCREENING [facility] Patient referral [facility] Work Phone: Immunizations Immunization Date Immunization Notes Care Provider Poli patel 12-13-2022 influenza, high dose seasonal, preservative-free Denita Chairez Other [employer] [facility] [employer] Other 12-13-2022 influenza virus vaccine, unspecified formulation DO Harley Ball Work Phone: [facility] 12-15-2021 influenza virus vaccine, unspecified formulation DO [employer] Work Phone: [facility] 12-15-2021 influenza, high dose seasonal, preservative-free Harley Ball Other [facility] [employer] Other 02-21-2021 COVID-19 mRNA, Comirnaty (Pfizer) DO Harley Ball Work Phone: [facility] 06-21-2020 COVID-19 Vaccine Pfi zer - Documentation Purposes Only Tondra Kwong Other [facility] 05-30-2020 COVID-19 Vaccine Pfi zer - Documentation Purposes Only Tona Mapus Other [facility] 01-17-2018 pneumococcal polysaccharide vaccine, 23 valent Abdon Walker MD Work Phone: [facility] 01-17-2018 Seasonal trivalent influenza vaccine, adjuvanted, preservative free Abdon Walker MD Work Phone: [facility] 01-16-2017 influenza, high dose seasonal, preservative-free Abdon Walker MD Work Phone: [facility] 11-30-2016 influenza, injectabl e, quadrivalent, preservative free Abdon Walker MD Work Phone: [facility] 11-14-2016 pneumococcal conjuga te vaccine, 13 valent Abdon Walker MD Work Phone: [facility] 04-02-2016 pneumococcal polysaccharide vaccine, 23 valent Tondra Mapus Other [facility] 01-23-2012 influenza, seasonal, injectable Abdon Walkre MD Work Phone: [facility] 12-13-2010 influenza, seasonal, injectable Abdon Walker MD Work Phone: [facility] 01-27-2009 novel [id number], preservative-free, injectable Abdon Walker MD Work Phone: [facility] 01-19-2008 influenza virus vaccine, whole virus Abdon Walker MD Work Phone: [facility] Payers Date Payer Category Payer Unknown MMO MMO MEDICARE SUPPLEMENT [id number] 2019-Present [phone] [address] [place] [address] Indemnity [id number] 2017 Self-pay [id number] 2017 Unknown [id number] 2017 Unknown [id number] 2016 Medicare MEDICARE MEDICAR E A AND B [id number] 2016-Present [phone] [address] [address] [place] [address] Medicare [id number] 1959 Medicare [id number] 1959 Unknown [id number] 1951 Unknown [id number] 2.16.840.1.229156.3.579.2.647 1951 Unknown [id number] 2.16.840.1.821273.3.579.2.647 1951 Unknown [id number] 2.16.840.1.041242.3.579.2.593 1951 Unknown [id number] 2.16.840.1.041289.3.579.2.593 1951 Unknown [id number] 2.16.840.1.803112.3.579.2.593 1951 Unknown [id number] 2.16.840.1.909994.3.579.2.593 1951 Unknown [id number] 2.16.840.1.720653.3.579.2.593 1951 Unknown [id number] 2.16.840.1.736495.3.579.2.593 1951 Unknown [id number] 2.16.840.1.755942.3.579.2.593 1951 Unknown [id number] 2.16.840.1.647328.3.579.2.593 1951 Unknown [id number] 2.16.840.1.746007.3.579.2.593 1951 Unknown [id number] 2.16.840.1.365094.3.579.2.593 1951 Unknown [id number] 2.16.840.1.868495.3.579.2.593 1951 Unknown [id number] 2.16.840.1.264263.3.579.2.593 1951 Unknown [id number] 2.16.840.1.211222.3.579.2.593 1951 Unknown [id number] 2.16.840.1.122290.3.579.2.593 1951 Unknown [id number] 2.16.840.1.875083.3.579.2.593 1951 Unknown [id number] 2.16.840.1.109873.3.579.2.593 1951 Unknown [id number] 2.16.840.1.865081.3.579.2.593 1951 Unknown [id number] 2.16.840.1.105611.3.579.2.593 Unknown [id number] Unknown [id number] 2.16.840.1.764680.3.579.2.531 Social History Date Type Detail Facility Unknown if ever smoked [employer] Other Sex Assigned At [employer] Other Start: 09-29-2021 End: 01-16-2022 Tobacco smoking status Ex-smoker (finding) [facility] [place] Tobacco smoking status Never General Surgery [facility] Start: 07-23-2018 Tobacco use and exposure Smokeless tobacco non-user [facility] Start: 10-25-2020 Alcohol intake Ex-drinker (finding) [facility] Start: 1950 Sex Assigned At Not on file C [facility] Start: 1950 Sex Assigned At Male F [facility] Medical Equipment Procedure Code Equipment Code Equipment Origin al Text Equipment Identifier Dates Start: 10-31-2016 CL STENT DC 2. 0 X 15 FDA Start: 04-13-2021 CL STENT DC 2. 0 X 15 FDA Start: 07-12-2020 Goals Date Patient Goal Desired Activity /State Functional Status Date Assessment Result Facility 01-17-2022 Functional status Patient at Baseline [facility] Work Phone: 09-29-2021 Functional Status N/A General Saha ranjeet Dudley Mental Status Date Assessment Result Facility 01-17-2022 Cognitive function Cognitive Sta tus Patient at Baseline [facility] Work Phone: Clinical Notes 01-03-2021 to 05-07-2023 Note Date & Type Note Facility 05-07-2023 Note [facility] Consul t Note Reason for visit: Complete heart block on event monitor, HFrEF 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%, atrial tachycardia 05/07/23 Patient is s/p BiV ICD. 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 patient has got good device threshold. he [...] and hypertension. He was recently admitted [place] [facility] [place]. Had inpatient stress test and heart cath. Denies SOB but still having chest pain and has taken nitroglycerin a few times for relief. Had CT chest last week s/p discharge. Cardiac catheterization revealed patent bypass grafts and worsening bad river band vessel disease. Medications were adjusted. I had [...] 75 mg ta (more content not included)... [facility] 04-30-2023 Evaluation note Encounter Date Diagnosis Assessment Notes Apr, Chronic HFrEF (heart failure with reduced ejection fraction) (ICD-10 - I50.22) [employer] Other 01-30-2024 NotePatient here for follow up echo. He is doing very well, as chest pain and palpitations have subsided. Taking bumex prn now and hasn't been swelling much. Denies SOB and lightheadedness. Review of Systems Musculoskeletal: Positive for arthritis, back pain, joint pain and myalgias. All other systems reviewed and are negative.[facility] 04-30-2023 NoteUT Cardiology Consult Note Reason for [...] He had cardiac cath 01/25/23 which should 4/ patent bypass grafts, sluggish arterial flow, antiplatelet [...] and hypertension. He was recently admitted to [facility] for [place]. Had inpatient stress test and heart cath. Denies SOB but still having chest pain and has taken nitroglycerin a few times for relief. Had CT chest last week s/p discharge. Cardiac catheterization revealed patent bypass grafts and worsening bad river band vessel disease. Medications were adjusted. I had [...] route. insulin detemir (Levemi (more content not included)...[facility]12-18-2023 NotePatient here for 2 week follow up per [address]. Bishop. Metoprolol was increased to 100mg to decrease atrial tachycardia. Still gets random chest pain and palpitations. Lightheadedness has been better and has resolved. Denies SOB. Review of Systems Cardiovascular: Positive for chest pain and palpitations. Musculoskeletal: Positive for arthritis, back pain, joint pain and myalgias. All other systems reviewed and are negative.[facility] 03-18-2023 NoteUT Cardiology Consult Note Reason for [...] and hypertension. He was recently admitted to [facility] for [place]STEM[place]. Had inpatient stress test and heart cath. Denies SOB but still having chest pain and has taken nitroglycerin a few times for relief. Had CT chest last week s/p discharge. Cardiac catheterization revealed patent bypass grafts and worsening bad river band vessel disease. Medications were adjusted. I had [...] morning and at bedtim (more content not included)...[facility]12-12-2023 Evaluation note* Encounter Date Diagnosis Assessment Notes [...] age/comorbidities 2. Blood glucose levels according to morris cgm download 02/27/2023- 023: Average glucose 134. [...] PAP-Jardiance was denied, pt given information on [facility] diabetes discount program instructed to apply order [...] hypertension material was printed on diony. Mar, jail current use of insulin (ICD-10 - Z79.4) Mar, Hyperlipidemia (ICD-10 - E78.5) High cholesterol material was printed 05/2022 ldl 69- on statin. Mar, BMI 27.0-27.9,adult (ICD-10 - Z68.27) Eating healthy: tips to make it easier material was printed [employer] Other 12-07-2023 [facility] Note Chief Complaint: Patient here for follow up. Carotid US was done yesterday at [facility]. Says his HR has been elevated lately, around 119. Had his device interrogated a few days ago. Still has to take nitroglycerin at times for chest pain. HPI: Lani Lizama is a 72 y.o. male being seen in post hospital follow up Hospital course: And admitted to the hospital on 01/25 as a direct transfer from [facility], With worsening chest pain for the last [...] artery stenosis, Coronary artery disease, Diabetes mellitus ([facility]), Hyperlipidemia, Hypertension, PVD (peripheral vascular disease) ([facility]), and Third degree heart block ([facility]). Surgical History He has a past [...] Disp: 180 tablet, Rfl: (more content not included)...[facility]11-21-2023 NotePatient seen for wound check s/p BiV [...] 4-6 weeks. 5. No driving for 1 month.[facility]11-14-2023 NoteBiV- ICD UPGRADE & RV LEAD EXTRACTION PROCEDURE NOTE DATE OF PROCEDURE: 02/12/2023 PERFORMING PHYSICIAN: Dr. Kevin Arteaga RESIDENT ADVISOR: Dr Jamie Dupree CONSENT: Patient LOCATION: EP Lab PROCEDURE PERFORMED: 1. Implantation of Biventricular ICD ([employer]). 2. Explantation of previously implanted pacemaker generator ([employer]). 3. RV pacing lead extraction. 4. [...] catheterization revealed patent bypass grafts and worsening bad river band vessel disease. Event monitor revealed presence of [...] removed the Johana system and used a [email or web address] CS sheath over a 9F short sheath. [...] stable. COMPLICATIONS: None. IM (more content not included)...[facility]11-14-2023 NotePatient: Lani Lizama Procedure Information Date/Time: 02/12/23 1100 Procedure: Biventricular ICD upgrade - Upgrade PPM to Bi-V- possibly to AICD Location: [facility] SCL[facility]OSCOPE TESTER 1 / [facility] (Cath) Providers: Kevin Arteaga MD Clinical information reviewed: Allergies Meds Physical Exam Airway Mallampati: III Cardiovascular - normal exam Dental Pulmonary - normal exam Abdominal - normal exam Anesthesia Plan ASA 3 other (Conscious sedation) Anesthetic plan and risks discussed with patient. Use of blood products discussed with patient who consented to blood products. Plan discussed with attending. Additional [facility] Evaluation note* Encounter Date Diagnosis Assessment Notes Treatment Notes Treatment Clinical Notes Jan, Chronic HFrEF (heart failure with reduced ejection fraction) (ICD-10 - I50.22) [employer] Other 11-03-2023 NoteUT Cardiology Consult Note Reason [...] and hypertension. He was recently admitted to [facility] [place]. Had inpatient stress test and heart cath. Denies SOB but still having chest pain and has taken nitroglycerin a few times for relief. Had CT chest last week s/p discharge. Cardiac catheterization revealed patent bypass grafts and worsening bad river band vessel disease. Medications were adjusted. I had [...] tablet Take 1 tablet (more content not included)...[facility]10-30-2023 NoteOccupational Therapy Occupational Therapy Evaluation Patient Name: Lani Lizama : 1950 Today's Date: 01/28/2023 Time In: 1404 Time Out: 1444 Lani iLzama is a 72 y.o. male with Hx CAD s/p 4v CABG and multiple past stents to VG to OM branch. Last LHC 01/20 at [facility] found patent bypass grafts. 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 Hme meds: ASA, Plavix, Coreg, Jardiance, Imdur 30, Lisinopril 2.5, Lovasatatin 40mg, protonix. Pt and son do not recall any other statins or reaction to statins. 01/25/23 transferred from [facility] for 2 months of worsening CP [...] first diagonal, SVG to OM --01/25/23 NSTEMI: C 01/25: stable CAD (4/4 bypass grafts patent) [...] Diagnosis Coronary atherosclerosis Type 1 diabetes mellitus ([facility]/HCC) Essential hypertension Gastroesophageal reflux disease History of coronary artery bypass surgery Increased immunoglobulin Irritable bowel syndrome Mixed hyperlipidemia Monoclonal gammopathy Nausea Overweight with body mass index (BMI) 25.0-29.9 Right lower quadrant abdominal pain Spondylosis of lumbar spine Stage 3 chronic kidney disease ([facility]) Stenosis of abdominal aorta Type 2 diabetes mellitus without complication ([facility]) AV block, 3rd degree ([facility]) Age-related nuclear cataract of both eyes Blepharitis of upper and lower eyelids of both eyes Dry eyes 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 edema associated with type 1 diabetes mellitus ([facility]) NSTEMI (non-ST elevated myocardial infarction) ([facility]) Acute on chronic systolic heart failure, NYHA class 3 ([facility]) Reduced ejection fraction concurrent with and due to acute heart failure ([facility]) Past Medical History: Diagnosis Date Carotid artery stenosis Coronary artery disease Diabetes mellitus ([facility]) Hyperlipidemia Hypertension PVD (peripheral vascular disease) ([facility]) Third degree heart block ([facility]) Past Surgical History: Procedure Laterality Date [...] Level of Function Prior Function Level of [place]: Independent with ADLs and functional transfers, 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 with 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 , 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) Prior IADLs IADL History Homemaking Responsibilities: Yes [...] taking off regular lo (more content not included)...[facility]10-30-2023 NoteHospital Medicine Discharge Summary Final Discharge Diagnosis: NSTEMI (non-ST elevated myocardial infarction) (CMS/HCC) Non-ischemic cardiomyopathy with EF 10% Admission Diagnosis: NSTEMI (non-ST elevated myocardial infarction) (CMS/HCC) [I21.4] Hospital course: And admitted to the hospital on 01/25 as a direct transfer from [facility], With worsening chest pain for the last [...] Medications These medications were sent to [facility] - [place] - [address] [place] [address], [facility] [address] dapagliflozin propanediol 10 mg isosorbide mononitrate ER [...] 10*3/uL 141* 163 Chemistry: (more content not included)...[facility]10-30-[address] Arteaga is planning upgrade to BI-V ICD on as outptUnTrinity Health System [facility]10-30-2023 NoteUTP CARDIOLOGY INPATIENT PROGRESS NOTE Reason for follow up: NSTEMI, new HFrEF 10%, Angina Subjective Assessed at bedside, pt ambulates in the room without incident. Admits mild mid sternal chest pain this morning that lasted only a couple seconds and resolved. Denied shortness of breath, orthopnea or palpitations. Tele: V-paced in 90s ALLERGIES No Known [...] MENJIVAR graft. There is (more content not included)...[facility]10-29-2023 NoteHospital Medicine Daily Progress Note - 01/27/2023 12:00 PM; Room: [address] [place] [address] Admission: 01/25/2023 12:05 PM; Length of stay: 2 days THE HOSPITALIST TEAM PREFERS TO USE [employer] CHAT FOR COMMUNICATION 7AM-7PM. IF I DO NOT RESPOND WITHIN 15 MINUTES, PLEASE PAGE ME/CALL THROUGH THE PHOTOGRAPH PRINTER. FROM 7PM-7AM, PLEASE PAGE [phone](COVR) Code Status: Full Code Discharge Destination: home [...] Principal Problem: NSTEMI (non-ST elevated myocardial infarction) ([facility]) Assessment and Plan NSTEMI coronary artery [...] for: PREALBUMIN, TSH, T3FREE, FREET4, CORTISOL, FEV1, VHC7FQR, DLCO, RVSP, HDL, LDL No results found for: [id number], IRON, TIBC, C3, C4, HARISH, CANCA, ASO, PSA, CEA, CA125, CA199, AFP, CA153 Imaging Cardiac catheterization PROCEDURE PHYSICIAN: Petar Foreman MD . Indications: Lani Lizama is a 72 y.o. male with prior complex cardiac history including bypass surgery and multiple stenting procedures in the past. Last cardiac catheterization in December 2021 at an outside institution showed patent bypass grafts. (more content not included)... [facility]10-29-2023 NoteUTP CARDIOLOGY INPATIENT PROGRESS NOTE Reason for [...] Value Ventricular Rate 91 Atrial Rate 91 NH Interval 162 QRS DURATION 180 QT Interval 416 QTC CALCULATION(BAZETT) 511 P Zortman 52 R-Zortman -41 T Wave Zortman 109 Impression Atrial-sensed ventricular-paced rhythm Abnormal ECG [...] Due to suboptimal i (more content not included)...[facility]10-28-2023 NoteHospital Medicine Daily Progress Note - 01/26/2023 12:37 PM; Room: [address] [place] [address] Admission: 01/25/2023 12:05 PM; Length of stay: 1 days THE HOSPITALIST TEAM PREFERS TO USE [employer] FOR COMMUNICATION 7AM-7PM. IF I DO NOT RESPOND WITHIN 15 MINUTES, PLEASE PAGE ME/CALL THROUGH THE PHOTOGRAPH PRINTER. FROM 7PM-7AM, PLEASE PAGE [phone](COVR) Code Status: Full Code Discharge Destination: home [...] Principal Problem: NSTEMI (non-ST elevated myocardial infarction) ([facility]) Assessment and Plan NSTEMI coronary artery [...] for: PREALBUMIN, TSH, T3FREE, FREET4, CORTISOL, FEV1, DWF9VHV, DLCO, RVSP, HDL, LDL No results found for: [id number], IRON, TIBC, C3, C4, HARISH, CANCA, ASO, PSA, CEA, CA125, CA199, AFP, CA153 Imaging Cardiac catheterization PROCEDURE PHYSICIAN: Petar Foreman MD . Indications: Lani Lizama is a 72 y.o. male with prior complex cardiac history including bypass surgery and multiple stenting procedures in the past. Last cardiac catheterization in December 2021 at an outside institution showed patent bypass grafts. He presented to the [facility] with symptoms of worsening chest pain over the past 2 months. He was admitted and had rising cardiac troponin. He was referred (more content not included)...[facility]10-28-2023 NoteAdult Nutrition Assessment: Name: Lani Lizama Date: 1950 Date of Visit: 01/26/23 Admission Dx: NSTEMI (non-ST elevated myocardial infarction) ([facility]) [I21.4] Reason for assessment: high risk (HF) Information obtained from: patient, medical record, and nursing Past Medical History: Diagnosis Date Carotid artery stenosis Coronary artery disease Diabetes mellitus ([facility]) Hyperlipidemia Hypertension PVD (peripheral vascular disease) ([facility]) Third degree heart block ([facility]) Current Medications: ALPRAZolam, 0.5 mg, oral, [...] compliance w/ MNT Contact the dietitian via [employer] chat 8A-4P Saturday through Saturday or call extension [phone]. For s & hols, the dietitian can be reached via pager [phone] from 9A-3P. Unable to respond to [employer] messages on Saturday & .[facility]10-28-2023 Note Attestation signed by Marry Avendano MD [...] Teaching Physician's Revisions: none Marry Avendano MD [place] Card[facility] Subjective Underwent heart cath yesterday. No [...] -- 90 17 93 % -- -- 01/25/237 115/73 -- -- 90 16 97 % [...] to eliquis on discharge Mickie Plaza MD [employer] [facility]10-27-2023 NotePatient: Lani Lizama Procedure Information Date/Time: 01/25/23 1900 Procedures: Coronary angiography Coronary bypass graft study Location: [facility] S[facility]COPE TESTER 3 / [facility] (Cath) Providers: Petar Foreman [...] products. Plan discussed with attending. Additional Equipment [facility]sSouthern [facility]10-27-2023 Note Hospital Medicine History and Physical 01/25/2023 10:53 AM THE HOSPITALIST TEAM PREFERS TO USE [employer] CHAT FOR COMMUNICATION 7AM-7PM. IF I DO NOT RESPOND WITHIN 15 MINUTES, PLEASE PAGE ME/CALL THROUGH THE PHOTOGRAPH PRINTER. FROM 7PM-7AM, PLEASE PAGE [phone](COVR) Chief Complaint No chief complaint on file. History of Present Illness Lani Lizama is an 72 y.o. male who came from [facility] with NSTEMI and troponin of 7000. Patient has a history of CABG and 7 stents. For the last few weeks he has had intermittent chest pain that NTG does relieve. He did have a syncopal episode 3 weeks [address] He saw Dr. Bishop on 01/17 and his lisinopril was decreased. Yesterday he had severe chest pain and went to [place] ER. Patient was admitted to [place] and initial troponin was negative but then [...] edema associated with type 1 diabetes mellitus ([facility]) 10/12/2022 Gastroesophageal reflux disease 03/02/2022 Increased immunoglobulin 03/02/2022 Irritable bowel syndrome 03/02/2022 Mixed hyperlipidemia 03/02/2022 Nausea 03/02/2022 Overweight with body mass index (BMI) 25.0-29.9 03/02/2022 Right lower quadrant abdominal pain 03/02/2022 Spondylosis of lumbar spine 03/02/2022 Stage 3 chronic kidney disease ([facility]/HCC) 03/02/2022 Stenosis of abdominal aorta 03/02/2022 History of coronary artery bypass surgery 11/16/2019 Monoclonal gammopathy 07/28/2018 Type 2 diabetes mellitus without complication ([facility]) 06/03/2012 Coronary atherosclerosis 09/19/2011 Type 1 diabetes mellitus ([facility]) 09/19/2011 Essential hypertension 09/19/2011 AV block, 3rd degree ([facility]) 03/21/2022 Assessment and Plan NSTEMI - transfer from [place] - will continue heparin drip - cardiology has been consulted and plan to proceed with cardiac catherization today Syncope - patient did have his PM interrogated in [place] Acute renal failure on CKD 3b - in review of chart it looks like his Cr is 1.5 - 1.9 - 2.23 today at [place] - will gently hydrate 0.9NS @ 50 ml/hr Coronary atherosclerosis - CATH 09/2018 bypass grafts patent; mild ISR CATH 12/2021. 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 [facility] Chief Complaint: Patient here [...] artery stenosis, Coronary artery disease, Diabetes mellitus (CMS/HCC), Hyperlipidemia, Hypertension, PVD (peripheral vascular disease) ([facility]/HCC), and Third degree heart block ([facility]). Surgical History He has a past [...] in the morning., Disp: , Rfl: HYDROcodone-acetaminophen (Ranchita) 5-325 mg tablet, TAKE 1 TABLET BY [...] 2+ bilaterally. No rash/sk (more content not included)...[facility] 01-07-2023 Evaluation note* Encounter Date Diagnosis Assessment [...] Continue statins. Monitor LFTs and lipid profile. [employer] Other 10-06-2023 Evaluation note* Encounter Date Diagnosis Assessment Notes Treatment Notes Treatment Clinical Notes Dec, Ground glass opacity present on imaging of lung (ICD-10 - R91.8) CT: RUL, RML - 12/2022Dec, Pulmonary nodule (ICD-10 - R91.1) CT: 7mm RML nodule - 12/2022 [employer] Other 10-03-2023 Evaluation note* Encounter Date Diagnosis Assessment Notes Treatment Notes Treatment Clinical Notes Dec, Stage 3b chronic kidney disease (ICD-10 - N18.32) [employer] Other 10-02-2023 Evaluation note* Encounter Date Diagnosis [...] risk for cerebrovascular and cardiovascular disease. Dec, jail current use of insulin (ICD-10 - Z79.4) [...] be contributing - must discuss w/ Cardiology [employer] Other 07-11-2023 NotePatient here for 3 mo [...] light-headedness. All other systems reviewed and are negative.[facility] 10-09-2022 NoteCardiology Clinic Note Subjective Lani Lizama [...] and hypertension. He was recently admitted to [facility] for [place]. Had inpatient stress test and heart cath. Denies SOB but still having chest pain and has taken nitroglycerin a few times for relief. Had CT chest last week s/p discharge. Cardiac catheterization revealed patent bypass grafts and worsening bad river band vessel disease. Medications were adjusted. I had [...] Ischemic CMP. Update 05/02/2022 Was admitted [address] [facility] in December 2021 for what appears to be a non-ST elevation myocardial infarction. Cardiac catheterization revealed patent bypass grafts and worsening bad river band vessel disease. Medications were adjusted. He states that he has had no chest pain for the past week. He described what sounded like typical angina with exertion. No orthopnea, no paroxysmal external dyspnea, no lower extremity edema. No claudication. He was admitted to [facility] in March for third-degree heart block [...] in the morning., Disp: , Rfl: HYDROcodone-acetaminophen (Ranchita) 5-325 mg tablet, TAKE 1 TABLET BY MOUTH (more content not included)...[facility]07-03-2023 Evaluation note* Encounter Date Diagnosis Assessment Notes Treatment Notes Treatment Clinical Notes Sep, ASHD (arteriosclerotic heart disease) (ICD-10 - I25.10) [employer] Other 06-21-2023 Evaluation note* Encounter Date Diagnosis Assessment Notes Treatment Notes Treatment Clinical Notes Aug, ASHD (arteriosclerotic heart disease) (ICD-10 - I25.10) [employer] Other 06-02-2023 Evaluation note* Encounter Date Diagnosis [...] inserts to prevent callus formation.Fall precautions. Aug, jail (current) use of insulin (ICD-10 - Z79.4) [employer] Other 05-11-2023 Evaluation note* Encounter Date Diagnosis Assessment Notes Treatment Notes Treatment Clinical Notes July, Ground glass opacity present on imaging of lung (ICD-10 - R91.8) CT: RML,RUL infiltrate - 12/2021, CT: RML,RUL improved - 03/2022 CT: RML, RUL, GGO improved - 07/2022 [employer] Other 04-25-2023 NotePatient here for 4 week [...] light-headedness. All other systems reviewed and are negative.[facility] 07-24-2022 NoteCardiology Clinic Note Subjective Lani Lizama [...] and hypertension. He was recently admitted to [facility] for NSTEM[place]. Had inpatient stress test and heart cath. Denies SOB but still having chest pain and has taken nitroglycerin a few times for relief. Had CT chest last week s/p discharge. Cardiac catheterization revealed patent bypass grafts and worsening bad river band vessel disease. Medications were adjusted. I had [...] Ischemic CMP. Update 05/02/20[address] [facility] in December 2021 for what appears to be a non-ST elevation myocardial infarction. Cardiac catheterization revealed patent bypass grafts and worsening bad river band vessel disease. Medications were adjusted. He states that he has had no chest pain for the past week. He described what sounded like typical angina with exertion. No orthopnea, no paroxysmal external dyspnea, no lower extremity edema. No claudication. He was admitted to [facility] in March for third-degree heart block [...] mg 24 hr tablet, (more content not included)...[facility]04-03-2023 Evaluation note* Encounter Date Diagnosis Assessment Notes [...] advised him to continue to follow with [facility] for DM management. He takes Lisinopril and [...] D and PTH. Advised low phosphorus diet. [employer] Other 03-30-2023 Evaluation note* Encounter Date Diagnosis [...] are reviewed at the office visit. May, jail (current) use of insulin (ICD-10 - Z79.4) [...] (ICD-10 - Z12.5) Yearly PSA and ABDELRAHMAN [employer] Other 03-28-2023 Evaluation note* Encounter Date Diagnosis [...] 2. Blood glucose levels stable. According to [employer] cgm download 06/13/2022- 3: Average glucose 190. [...] hypertension material was printed on diony. May, jail current use of insulin (ICD-10 - Z79.4) May, Hyperlipidemia (ICD-10 - E78.5) High cholesterol material was printed 05/2022 ldl 69- on statin. May, BMI 27.0-27.9,adult (ICD-10 - Z68.27) Eating healthy: tips to make it easier material was printed [employer] Other 03-27-2023 NoteCardiology Clinic Note Subjective Lani [...] and hypertension. He was recently admitted [place] [facility] for NSTEM[place]. Had inpatient stress test and heart cath. Denies SOB but still having chest pain and has taken nitroglycerin a few times for relief. Had CT chest last week s/p discharge. Cardiac catheterization revealed patent bypass grafts and worsening bad river band vessel disease. Medications were adjusted. I had [...] Ischemic CMP. Update 05/02/2022 Was admitted to [facility] in December 2021 for what appears to be a non-ST elevation myocardial infarction. Cardiac catheterization revealed patent bypass grafts and worsening bad river band vessel disease. Medications were adjusted. He states that he has had no chest pain for the past week. He described what sounded like typical angina with exertion. No orthopnea, no paroxysmal external dyspnea, no lower extremity edema. No claudication. He was admitted to [facility] in March for third-degree heart block [...] capsule, Take 1 capsu (more content not included)...[facility]03-27-[facility]23 NotePatient here c/o chest pressure with and [...] light-headedness. All other systems reviewed and are negative.[facility] 05-26-2022 Evaluation note* Encounter Date Diagnosis Assessment Notes Treatment Notes Treatment Clinical Notes May, Abnormality of lung on CXR (ICD-10 - R91.8) [employer] Other 12-20-2022 Evaluation note* Encounter Date Diagnosis Assessment Notes [...] 2. Blood glucose levels stable. According to [employer] cgm download 03/07/2022-03/20/20 22: Average glucose 144. Above 250-0%, >180- 15%, 70-180-85%, <70-0%, <54-0%. CV 24.3%. Reviewed download with pt, no incidence of hypoglcyemia noted. Glucose rise between 12-6pm. D/t current shortage of ozempic, recommend pt reduce dose to 0.5mg once weekly until shipment recieved from [facility], then increase to 1mg once [...] hypertension material was printed on diony. Mar, jail current use of insulin (ICD-10 - Z79.4) Mar, Hyperlipidemia (ICD-10 - E78.5) High cholesterol material was printed 06/2021 ldl 48- on statin. Mar, BMI 26.0-26.9,adult (ICD-10 - Z68.26) Eating healthy: tips to make it easier material was printed 9 pound weight loss from last visit, continue with weight loss efforts [employer] Other 11-10-2022 Evaluation note* Encounter Date Diagnosis Assessment Notes Treatment Notes Treatment Clinical Notes Jan, Diabetes mellitus with chronic kidney disease (ICD-10 - E11.22) [employer] Other 10-19-2022 Discharge summary Author Gagan Shahid [facility] January 17, 2022 3:02pm Note Date/Time January 17, 2022 3 :02pm [facility] [address] [place] [address] Discharge Summary Signed Patient: Lani Lizama MR#: [id number] : 1950 Acct:[id number] Age/Sex: 71 / M Adm Date: 2 Loc: Room: [address] [place] [address]: Gagan Shahid DO Copies to: [...] thought this to be indigestion/GERD in the central scheduler hours howeverthis progressively worsened prompting his presentation [...] consulted for management of non-ST segment elevation ID. Cardiac catheterization was undergone on 01/16/2022 showing [...] levels as before. DISCHARGE INSTRUCTIONS FOR CARDIAC SCLEROSCOPE TESTER PHONE NUMBER OF YOUR PHYSICIAN: [phone] PROCEDURE: Heart Cath The following instructions have [...] cold, numb, blue or white, call the forensic engineer immediately. 4. ACTIVITY: You are advised to [...] bottle, follow the instructions on the bottle. [facility] is not responsible for incorrect prescription [...] until seen by your primary care provider reyzolam 0.5 mg Tablet 0.5 mg PO TID [...] <Electronically signed by Gagan Shahid DO> 01/17/[address] [facility] Work Phone: 1(496) 983-548810-19-2022 Progress note Author Luis Alfredo Borges [facility] January 17, 2022 11:47am Note Date/Time January 17, 2022 1 1:47am [facility] [address] [place], [place] [id number] Cardiology Progress Note Signed Patient: Lani Lizama MR#: [id number] : 1950 Acct:[id number] Age/Sex: 71 / M Adm Date: 2 Loc: Room: [address] [place] [address] Type: ADM IN Attending Dr: Gagan Shahid [...] is also notable worsening of the patient's bad river band occlusive coronaryheart disease particularly in the microcirculation [...] daily 3. Patient does have a primary forensic engineer near his home in [place]. We willschedule him 1 follow-up visit in [facility] for left wrist check and also for counseling and reinforcement/referral to phase 2 monitored cardiac rehabilitation which the patient desires to perform in [place]. 4. Instructed the patient that he can [...] Documented By: Luis Alfredo Borges MD 01/17/22 1143 Signed By: <Electronically signed by Luis Alfredo Borges MD> 01/17/22 1147 [facility] Work Phone: [phone] 139-711210-18-2022 Progress note Author Gagan Shahid [facility] January 16, 2022 4:09pm Note Date/Time January 16, 2022 4 :09pm [facility] [address] [place] [address] Hospitalist Progress Note Signed Patient: Lani Lizama MR#: [id number] : 1950 Acct:[id number] Age/Sex: 71 / M Adm Date: 2 Loc: Room: [address] [place] [address] Type: ADM IN Attending Dr: Gagan Shahid [...] 01/15/23 21:59 Not Given TID.WM.HS [facility] Protocol Isosorbide Mononitrate 60 mg 01/16/22 21:00 [...] <Electronically signed by Gagan Shahid DO> 01/16/22 5474 [facility] Work Phone: [phone]) 821-401810-18-2022 [facility] Consult note Author Luis Alfredo Borges [facility] January 16, 2022 10:24am Note Date/Time January 16, 2022 1 0:24am [facility] [address] [place] [address] Cardiology Consult Note Signed Patient: Lani Lizama MR#: [id number] : 1950 Acct:[id number] Age/Sex: 71 / M Adm Date: 2 Loc: Room: [address] [place] [address] Type: ADM IN Attending Dr: Gagan Shahid [...] well as history of PCI done here [facility] per Dr. Saldaña in May 2020 [...] he activated EMS and was taken to [facility] emergency department. There the patient was treated [...] negative unless noted below or in [facility]PI [facility]?: Yes Medical History [...] Lymph # (Auto) 1.0 1.6 (1.00-4.8) x10E3/uL Sampson # (Auto) 0.4 0.8 (0.0-0.8) x10E3/uL Eos [...] nonspecific abnormality, ST segment, and/or T wave ID, pacemaker, normal Normal tracing: no change compared [...] by Luis Alfredo Borges MD> 01/16/22 1024 [facility] Work Phone: [phone] 270-244710-17-2022 History and physical note Author Gagan Shahid [facility] January 15, 2022 6:56pm Note Date/Time January 15, 2022 6 :02pm [facility] [address] [place] [address] Hospitalist H&P Signed Patient: Lani Lizama MR#: [id number] : 1950 Acct:[id number] Age/Sex: 71 / M Adm Date: 2 Loc: Room: [address] [place] [address] Type: ADM IN Attending Dr: Gagan Shahid DO Copies to: DO Gagan Hudson, DO~ HPI DATE OF EXAMINATION: 01/15/22 CHIEF COMPLAINT: [...] need for cardiovascular evaluation he was transferredto [facility] for further management and cardiology consultation. [...] % (Auto) 13.8 % (.) 01/15/22 15:00 Sampson % (Auto) 6.1 % (.) 01/15/22 15:00 Eos % (Auto) 0.9 % (.) 01/15/22 15:00 Baso % (Auto) 0.5 % (.) 01/15/22 15:00 Neut # (Auto) 5.6 x10E3/uL (1.8-7.7) 01/15/22 15:00 Lymph # (Auto) 1.0 x10E3/uL (1.00-4.8) 01/15/22 15:00 Sampson # (Auto) 0.4 x10E3/uL (0.0-0.8) 01/15/22 15:00 Eos # (Auto) 0.1 x10E3/uL (0.0-0.45) 01/15/22 15:00 Baso # (Auto) 0.0 x10E3/uL (0.0-0.2) 01/15/22 15:00 Nucleated RBC % (auto) 0.2 % (0-0.5) 01/15/22 15:00 PT 15.5 Seconds (9.0-12.9) H 01/15/22 15:00 INR 1.4 10/17/22 15:00 APTT 52.0 Seconds (25.1-36.5) H 01/15/22 15:00 Troponin I High Sens 1378 pg/mL (0-20) H* 01/15/22 15:00 Documented By: Gagan Shahid DO 01/15/22 18 01 Signed By: <Electronically signed by Gagan Shahid DO> 01/15/[address] [facility] Work Phone: [phone] 264-183909-19-2022 Evaluation note* Encounter Date Diagnosis Assessment Notes [...] Blood glucose levels above improved. According to [employer] cgm download 12/05/2021- 2: Average glucose 119. [...] hypertension material was printed on diony. Nov, jail current use of insulin (ICD-10 - Z79.4) Nov, Hyperlipidemia (ICD-10 - E78.5) High cholesterol material was printed 06/2021 ldl 48- on statin. Nov, BMI 27.0-27.9,adult (ICD-10 - Z68.27) Eating healthy: tips to make it easier material was printed 22 pound weight loss from last visit, continue with weight loss efforts [employer] Other [id number] Miscellaneous Notes* Telephone Encounter - Vee Day - 10/20/2021 9:42 AM EDT New CBC order. Vee Day [facility] NoteChief Complaint consultation for cholelithiasis HPI [...] RLQ ASHD (arteriosclerotic heart disease) Atheroscler of bad river band artery of both legs with intermit claudication BMI 28.0-28.9,adult BPH associated with nocturia Cholelithiasis Controlled diabetes mellitus with diabetic polyneuropathy, with long-term current use of insulin Diabetic retinopathy Elevated serum immunoglobulin free light chains GERD (gastroesophageal reflux disease) IBS (irritable bowel syndrome) Lumbar spondylosis MGUS (monoclonal gammopathy of unknown significance) Mixed hyperlipidemia Nausea Obesi (more content not included)...[facility]: Result Comment: Electronically Signed By: FRANKIE LEMUS, Gagan Bal\Date and Time Signed: 10/17/21 12:19 [id number] Evaluation note* Encounter Date Diagnosis Assessment Notes [...] Blood glucose levels above improved. According to [employer] cgm download 07/04/2021-07/17/2021 : Average glucose 146. [...] hypertension material was printed on diony. Jun, jail current use of insulin (ICD-10 - Z79.4) Jun, BMI 30.0-30.9,adult (ICD-10 - Z68.30) Eating healthy: tips to make it easier material was printed see above Jun, Bradycardia (ICD-10 - R00.1) asymptomatic- f/u with cardiology has upcoming apt. If symptomatic i.e. light headed notify sooner [employer] Other 03-21-2022 Evaluation note* Encounter Date Diagnosis Assessment Notes Treatment Notes Treatment Clinical Notes May, Gastro-esophageal reflux disease with esophagitis, without bleeding (ICD-10 - K21.00) [employer] Other 03-08-2022 Evaluation note* Encounter Date Diagnosis [...] advised him to continue to follow with Arlen for DM management. He takes Lisinopril and I will continue it May, Vitamin D deficiency (ICD-10 - E55.9) His MBD parameters are within the goal. [employer] Other 02-21-2022 Evaluation note* Encounter Date Diagnosis Assessment Notes Treatment Notes Treatment Clinical Notes May, Diabetes mellitus with chronic kidney disease (ICD-10 - E11.22) [employer] Other 01-10-2022 Evaluation note* Encounter Date Diagnosis Assessment Notes Treatment Notes Treatment Clinical Notes Apr, Type 2 diabetes mellitus with hyperglycemia (ICD-10 - E11.65) [employer] Other 01-10-2022 Evaluation note* Encounter Date Diagnosis [...] Blood glucose levels above improved. According to [employer] cgm download 03/28/2021-04/10/19 22: Average glucose 167. [...] was also given rx assist paperwork for [facility] if he does not qualify for BI/jardiance. Ozempic will increase to 1mg once weekly. Apr, Hyperlipidemia (ICD-10 - E78.5) High cholesterol material was printed 07/2020 ldl 64 trig 207- on statin. Apr, HTN (hypertension) (ICD-10 - I10) About hypertension material was printed on diony. 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 [employer] Other 10-05-2021 Evaluation note* Encounter Date Diagnosis [...] above target with increased variability. According to [employer] cgm download 12/07/2020-01/03/2021: Average glucose 135. Above [...] hypertension material was printed on diony. 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 Notified forensic engineer Dr. Velazquez. Pt has apt on Saturday next week. [facility] [employer] Other Evaluation + Plan note No data available for this section General Surgery [place] Evaluation noteNo InformationNortNew [facility]ecare [facility] [employer] Other Evaluation note* Diagnosis Monoclonal gammopathy- Primary Monoclonal paraproteinemia documented [facility] Diagnosis Onset Date Resolution Status Non-ST elevation myocardial infarction (NSTEMI), initial care episode acute [facility] Work Phone: Evaluation noteNo assessment information available [facility] Work Phone: History general Narrative - Reported* [...] 06/2020 Hospitalization History Chest 05/2012 Hospitalization History GDOWIN [facility]CO STENTS PLACED 11-25-16 Hospitalization History HEART STENT PLACED 03-20 [employer] Other [employer] general Narrative - ReportedNoTiGenix Other [employer] general Narrative - Reported* Type Description Date [...] 11-25-16 Hospitalization History HEART STENT PLACED 03-20 [employer] Other history general Narrative - Reported* Type [...] 11-25-16 Hospitalization History HEART STENT PLACED 03-20 [employer] Other History general Narrative - Reported* Type [...] 11-25-16 Hospitalization History HEART STENT PLACED 03-20 [employer] Other [employer] general Narrative - Reported* Type Description Date [...] STENT PLACED 03-20 Hospitalization History SEE ABOVE [employer] Other History general Narrative - ReportedNonorth [facility] [employer] Other [facility]yps general Narrative - Reported* Type Description Date [...] STENT PLACED 03-20 Hospitalization History SEE ABOVE [employer] Other [employer]bx general Narrative - Reported* Type Description Date [...] STENT PLACED 03-20 Hospitalization History SEE ABOVE [employer] Other History general Narrative - Reported* Type [...] 11-25-16 Hospitalization History HEART STENT PLACED 03-20 18 Hospitalization History SEE ABOVE [employer] Other History general Narrative - Reported* Type [...] History GGO and Pulmonary nodules Medical History ID 01/21 Medical History Defibrilator 02/21 Surgical History [...] 03-20 Hospitalization History SEE ABOVE Hospitalization History ID 01/21 [employer] Other Hospital Discharge instructions No data available for this section General Surgery [place] [facility] Discharge instructions Additional Instructions Monitor glucose levels as before. DISCHARGE INSTRUCTIONS FOR CARDIAC SCLEROSCOPE TESTER PHONE NUMBER OF YOUR PHYSICIAN: [phone] PROCEDURE: Heart Cath The following instructions have [...] cold, numb, blue or white, call the forensic engineer immediately. 4. ACTIVITY: You are advised to [...] bottle, follow the instructions on the bottle. [facility] is not responsible for incorrect prescription information provided by the patient during their visit. Do not stop your medications without consulting your health care provider. Please take the list with you to your next doctor's appointment. [facility] Work Phone: Progress note No data available for this section General Surgery [place] Summary Purpose Family History No Family History [...] section and content) DATE CREATED AUTHOR 11/29/2018 [facility] DATE CREATED AUTHOR AUTHOR'S ORGANIZ ATION 10/20/2021 [facility] DATE CREATED AUTHOR AUTHOR'S ORGANIZ ATION 10/25/2021 [facility] DATE CREATED AUTHOR AUTHOR'S ORGANIZ ATION 08/13/2022 [facility] DATE CREATED AUTHOR AUTHOR'S ORGANIZ ATION 05/08/2023 [facility] DATE CREATED AUTHOR AUTHOR'S ORGANIZ ATION 05/16/2023 [facility] REASON FOR VISIT (unrecogniz ed section and content) Reason Comments Lab Orders Care Team (unrecognized sect ion and content) [employer] Relationship Specialty Start Date End Date Harley Crespo DO [address] [place] [address] PCP - General Internal Medicine 07/18/18 Team Status: Inactive Member Role Status Dates Harley Crespo DO Primary Care Provider Active Gagan Shahid DO Admit Provider, Attending Provider Active Team Status: Active Member Role Status Dates Harley Crespo DO Primary Care Provider Active Ryan Garrett APRN BATCH DUMPERElenoC Active Valerie Gallegos PA-C Active Arlen Kwong APRN Attending Provider Active Team Status: Active Member Role Status Dates Harley Crespo DO Primary Care Provider Active Team Status: Inactive Member Role Status Dates Arlen wKong APRN Attending Provider Active Start: March 12, 2023 End: March 12, 2023 Team Status: Inactive Member Role Status Dates Harley Crespo DO Primary Care Provider Active Start: March 12, 2023 End: March 12, 2023 Ryan Garrett APRN BATCH DUMPERNatividad Active Sta rt: March 12, 2023 End: March 12, 2023 Valerie Gallegos PA-C Active St art: March 12, 2023 End: March 12, 2023 Arlen Kwong APRN Attending Provider Active Start: March 12, 2023 End: March 12, 2023 Team Status: Inactive Member Role Status Dates Harley Crespo DO Attending Provider Active Sta rt: May 03, 2023 End: May 03, 2023 Source Comments (unrecognize d section and content) In the event this informatio n is protected by the Federal Confidentiality of Alcohol and Drug Abuse Patient Records regulations: The Federal rules restrict any use of the information to criminally investigate or prosecute any alcohol or drug abuse patient.[facility] Goals (unrecognized section and content) Goals [...] BE BASED ON THE PRIMARY CLINICAL RECORDS. [employer] provides no warranty or guarantee of the accuracy or completeness of information in this document.
--- NOTE | 2023-06-20 08:00 | CA_ITS ---
Patient Name: LANI LIZAMA MR#: [id number] : 1950 Exam Date: 06/20/2023 Ordering Doctor: SERVANDO ARTEAGA ECHOCARDIOGRAM REPORT PROCEDURE: CA ECHO DOPPLER COMPLETE INDICATIONS: Chronic systolic (congestive) heart failure, AICD, CABGx5, hypertension, diabetes COMPARISON: None. DESCRIPTION: COMPLETE ECHOCARDIOGRAM Real-time transthoracic echocardiography with 2D, M-mode, spectral and color flow Doppler performed. QUALITY: Technical quality was good. 67 , 166#, BSA 1.87 m2 LEFT VENTRICLE: The left ventricle is moderately enlarged. LV EF: Global left ventricular systolic function is severely reduced; visually estimated ejection fraction is 10 to 15%. Diffuse global hypokinesis. DIASTOLIC: Diastolic dysfunction. ATRIAL SEPTUM: Visually appears intact. LEFT ATRIUM: Appears enlarged. RIGHT ATRIUM: Mild dilatation. Pacer wire present. RIGHT VENTRICLE: Normal chamber size. Systolic function appears reduced. Pacer wire present. TRICUSPID VALVE: Normal mobility and thickness. Moderate regurgitation. Doppler studies reveal mildly (35-45) elevated right sided pressures. RVSP 39 mmHg MITRAL VALVE: Normal mobility and thickness. No evidence of mitral valve stenosis. Moderate to severe mitral regurgitation. AORTIC VALVE: Normal trileaflet appearance. Thickened aortic valve. Normal leaflet mobility. No evidence of aortic valve stenosis. No aortic regurgitation. AORTIC ROOT: Normal diameter and appearance. PULMONIC VALVE: Normal thickness and mobility. No stenosis. Mild regurgitation. PERICARDIUM: No evidence of pericardial effusion. IVC: IVC is normal in size with no collapse. CONCLUSION: 1. Global left ventricular systolic function is severely reduced; visually estimated ejection fraction is 10 to 15% 2. Normal right ventricular size with reduced systolic function 3. Biatrial enlargement 4. Diastolic dysfunction 5. Moderate tricuspid regurgitation; mildly elevated right ventricular systolic pressure RVSP 39 mmHg 6. Moderate to severe mitral regurgitation 7. Mild pulmonic regurgitation Adult Echocardiography Procedure Report Left Ventricle LVEDD (3.7 - 5.6 cm): 5.24 cm LVESD (2.2 - 4.0 cm): 5.28 cm LVIVS thickness (0.6 - 1.2 cm): 0.92 cm LVPW thickness (0.5 - 1.0 cm): 0.83 cm e': 0.07 m/s LVOT Max Gradient: 1.29 mm[Hg] LVOT Area (cm2): 0.57 m/s Peak Velocity (LVOT): 0.57 m/s Mean Velocity (LVOT): 0.38 m/s LVOT Diameter 2.22 cm Left Atrium LA Volume Index (2D A2C): 33.03 ml/m2 Left Atrium Systolic Dimension: 4.13 cm Mitral Valve Mitral Valve E-Wave Peak Velocity: 0.81 m/s Right Ventricle Aorta AO Root Diam: 3.03 cm Ascending Ao Diam: 2.29 cm Aortic Valve AoV Area (Peak Ermias): 2.73 cm2, 2.73 cm2 AoV Area (VTI): 2.76 cm2, 2.76 cm2 Peak Velocity(Antegrade Flow): 0.80 m/s Peak Gradient(Antegrade Flow): 2.59 mm[Hg] Mean Velocity(Antegrade Flow): 0.52 m/s Mean Gradient(Antegrade Flow): 1.28 mm[Hg] Velocity Time Integral: 15.52 cm Tricuspid Valve Peak Velocity (Regurgitant Flow): 2.56 m/s, 2.79 m/s, 2.73 m/s Pulmonic Valve Peak Velocity: 0.61 m/s Peak Gradient: 1.55 mm[Hg], 1.40 mm[Hg] Right Atrium Right Atrium Systolic Pressure: 47.79 ml, 47.79 ml Dictated by: Pinky Bishop M.D. on 06/20/2023 at 14:12 Approved by: Pinky Bishpo M.D. on 06/20/2023 at 14:17
== END 2023-06-20 07:43 | disposition home or self-care (01) ==
LOC: CARD 07:42
PROVIDERS: PCP Internal Medicine; Visit Provider Internal Medicine Cardiovascular Disease
DX: I50.22 Chronic systolic (congestive) heart failure (principal); I08.1 Rheumatic disorders of both mitral and tricuspid valves
CPT/HCPCS: 93306; 93356

== ENCOUNTER 2023-06-24 07:33 | Outpatient (OUT) | payer MEDICARE, OTHER, SELFPAY ==
--- OUTSIDE RECORDS SUMMARY | 2023-06-24 07:39 | XMS_ITS | CCD ---
Author Organization [facility] Care Team Providers Care 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 Name Role Phone ELTAHAWY, EHAB A Admitting Unavailable ELTAHAWY, EHAB A Attending Unavailable HARLEY CRESPO Referring Unavailable HARLEY CRESPO Primary Care Unavailable ELTAHAWY, PINKY A Surgeon Unavailable [place] Procedure Practitioner Unavailab le ELTAHAWY, EHAB A Admitting Unavailable ELCANDIDO, NETOAB A Attending Unavailable HARLEY CRESPO Referring Unavailable HARLEY CRESPO Primary Care Unavailable Arlen Kwong Unavailable [place] Unavailable Shannon Escobar Unavailable HARLEY CRESPO Primary Care Physician [phone] Harley Crespo DO Primary Care Provider DO Harley Crespo Primary Care Provider [phone] JULY Kwong Attending Provider DO Gagan Shahid Admit Provider [phone] DO Gagan Shahid Attending Provider [phone] Harley Crespo Unavailable VIJAY, DR LOWE Consulting [...] Care Unavailable MAPUS, TON Attending Unavailable MAPUS, ARLEN Admitting Unavailable WEST, DR SHANNON Hernandez Consulting [...] Denita Chairez Unavailable KEVIN ARTEAGA Referring Unavailable BARAZI, LAILA Attending Unavailable JENNI, KEVIN Admitting Unavailable JENNI, KEVIN Attending Unavailable WITHERELL, DEISY Attending Unavailable WITHERELL, DEISY Referring Unavailable ELTAHAWY, PINKY Attending Unavailable BARAZI, LAILA Attending Unavailable HOYDELTA Referring Unavailable PEDRO ABIEL Admitting Unavailable LAURA, HANI Attending Unavailable PEPE, TIN Referring Unavailable BARAZI, LAILA Attending Unavailable PEPE, TIN Referring Unavailable ELTAHAWY, EHAB Attending Unavailable JENNI, KEVIN Referring Unavailable JENNI, KEVIN Referring Unavailable JENNI, KEVIN Referring Unavailable WITHPARUL, DEISY Attending Unavailable RODGER, DEISY Attending Unavailable JENNI, KEVIN Referring Unavailable JENNI, KEVIN Referring Unavailable JENNI, KEVIN Attending Unavailable RODGER, DEISY Attending Unavailable DO Harley Crespo Primary Care Provider JULY Kwong Attending Provider [phone] Arlen Kwong Attending Unavailable Arlen Kwong Admitting Unavailable Harley Crespo Primary Care Unavailable Allergies Allergy Classification Reported Allergen(s) Allergy Type Date of Onset Reaction(s) Facility (1 source) 35818,00; Translations: [Unknown] Propensity to adverse reactions (disorder) 9 [facility] Repository Medications Current Medications Medication Drug [...] tablet (20 sources) Benzodiazepine Start: 06-22-2020 take 0.5 mg by mouth three times daily Alprazolam Active 0.5 MG PO Three times daily June 22, 2020 12:00am Comment on above: Take 0.5 mg by mouth at bedtime as needed. amLODIPine 10 mg oral tablet (20 sources) Dihydropyridine Calcium Channel Jason Start: 09-07-2021 take 1 tablet by mouth once daily amLODIPine 10 mg Tab 10 mg = 1 tab(s), Oral, Daily, Refills(s) 0 Start Date: 09/07/21 Status: Ordered Start: 06-22-2020 End: 06-18-2023 take 10 mg by mouth once daily Amlodipine Discontinued 10 MG PO Daily June 22, 2020 12:00am June 18, 2023 11:01am Start: 10-16-2018 take 1 tablet by bhavik [...] mg oral tablet (20 sources) Loop Diuretic Start: 06-18-2023 take 0.5 mg by mouth once daily Bumetanide Active 0.5 MG PO Daily June 18, 2023 12:00am take 1 tablet by bhavik th every twenty-four hours Bumex 0.5 MG 1 tablet Orally Once a day Active cholecalciferol 0.025 mg ora l tablet (4 sources) Vitamin D take 1 tablet by bhavik th every twenty-four hours Vitamin D 25 MCG [...] Take 75 mg by mouth once daily. dapagliflozin 10 mg oral tablet (8 sources) Sodium-Glucose Cotransporter 2 Inhibitor Start: 06-18-19 take 1 tablet by mouth once daily Dapagliflozin Propanediol (Farxiga) 10 mg tablet Active 10 MG PO Daily June 18, 2023 12:00am take 1 tablet by bhavik th every twenty-four hours Farxiga 10 MG 1 tablet Orally Once a day Not-Taking/PRN docusate sodium 100 mg oral capsule (20 sources) Start: 06-18-2023 take 100 mg by mouth once daily Docusate Sodium Active 100 MG PO Daily June 18, 2023 12:00am take 1 capsule by mo ut every twenty-four hours Colace 100 MG 1 capsule as needed Orally Once a day Active Colace Active empagliflozin 10 mg oral tablet (20 sources) Sodium-Glucose Cotransporter 2 Inhibitor Start: 06-22-2020 End: 06-18-2023 take 10 mg by mouth once daily Empagliflozin Active 10 MG PO Daily June 18, 2023 12:00am empagliflozin (J MESERETDIANCE) 25 mg tablet q 24 HR. 0 Active Comment on above: q 24 HR. Insulin Aspart U-100 (Novolog Flexpen U-100 Insulin) 100 unit/mL (3 mL) insulin pen (2 sources) Start: 06-18-2023 inject 5 [IU] by subcutaneous injection three times daily Insulin Aspart U-100 (Novolog Flexpen U-100 Insulin) 100 unit/mL (3 mL) insulin pen Active 5 UNIT SUBCUT Three times daily June 18, 2023 11:02am 5 units at times depending on blood sugar Start: 06-18-2023 inject 4 [IU] by sub cutaneous injection once daily at mealtime Insulin Aspart U-100 (Novolog Flexpen U-100 Insulin) 100 unit/mL (3 mL) insulin pen Active 0 SUBCUT .COMPLEX June 18, 2023 12:00am 6-8-10-12 units according to meal size; 4 units for snack. Corrective scale 1:20 ac, tid (HS >200 1/2 dose) Subcutaneous ac, hs; (expect up to 40 units/day) 3 ml insulin aspart, human 100 unt/ml [...] UNIT/ML 20 units Subcutaneous qam Mar, Active Insulin Detemir U-100 (Levemir Flexpen) 100 unit/mL (3 mL) insulin pen (1 source) Start: 06-18-2023 inject 5 [IU] by subcutaneous injection twice daily Insulin Detemir U-100 (Levemir Flexpen) 100 unit/mL (3 mL) insulin pen Active 5 UNIT SUBCUT Twice daily June 18, 2023 12:00am Humulin N (6 sources) Start: 09-07-2021 inject 15 [IU] by [...] 2022 12:00am Start: 06-22-2020 End: 01-17-2022 take 60 mg by mouth once daily Isosorbide Mononitrate Discontinued 60 MG PO Daily June 22, 2020 12:00am January 17, 2022 2:28pm take 1 tablet by bahvik th every twelve hours Isosorbide Mononitrate ER [...] (titrate up to 40 units/day) Active lisinopril 2.5 mg oral tablet (20 sources) Angiotensin Converting Enzyme Inhibitor Start: 4 take 2.5 mg by mouth twice daily Lisinopril Active 2.5 MG PO Twice daily June 18, 2023 12:00am Start: 06-22-2020 End: 06-18-2023 take 20 mg by mouth once daily in the evening Lisinopril Discontinued 20 MG PO every evening at 6 PM. June 22, 2020 12:00am June 18, 2023 10:56am take 1 tablet by bhavik th every [...] 5 MG 1 tablet Orally Once a day [...] Date: 09/07/21 Status: Ordered Start: 06-22-2020 End: 06-18-2023 take 40 mg by mouth once daily in the evening Lovastatin Discontinued 40 MG PO Every evening June 22, 2020 12:00am June 18, 2023 11:03am take 1 tablet by bhavik th once daily at bedtime lovastatin (MEVACOR) 20 mg tablet Take 20 mg by mouth daily at bedtime. 0 Active Comment on above: Take 20 mg by mouth daily at bedtime. 24 hr metoprolol succinate 100 mg extended release oral tablet (8 sources) beta-Adrenergic Jason Start: 06-18-2023 take 150 mg by mouth once daily Metoprolol Succinate Active 150 MG PO Daily June 18, 2023 12:00am take 1 tablet by bhavik th every twenty-four hours Metoprolol Succinate ER 100 [...] Once a day Active nitroglycerin 0.4 mg sublingual tablet (9 sources) Nitrate Vasodilator Start: 06-18-2023 Nitroglyce rin (Nitrostat) 0.4 mg tablet, sublingual Active 0.4 MG SUBLINGUAL June 18, 2023 12:00am Nitrostat 0.4 MG as directed Sublingual 1 every 5 [...] (20 sources) Proton Pump Inhibitor Start: 07-11-19 22 take 40 mg by mouth once daily Pantoprazole Active 40 MG PO Daily July 10, 2021 12:00am rosuvastatin calcium 40 mg oral tablet (14 sources) HMG-CoA Reductase Inhibitor Start: 06-18-19 24 take 40 mg by mouth once daily Rosuvastatin Active 40 MG PO Daily June 18, 2023 12:00am take 1 tablet by bhavik th every twenty-four hours Rosuvastatin Calcium 40 MG 1 tablet Oral ly Once a day Active sacubitril 24 mg / valsartan 26 mg oral tablet (8 sources) Angiotensin 2 Receptor Jason Start: 06-18-2023 take 1 tablet by mouth twice daily Sacubitril-Valsartan (Entresto) 24-26 mg tablet Active 1 TAB PO Twice daily June 18, 2023 12:00am take 1 tablet by bhavik th every twelve hours Entresto 24-26 MG 1 tablet Orally Twice a day Not-Taking/PRN Ozempic (7 sources) Start: 09-29-2021 Ozempic qWeek, Refill(s) 0 Start Date: 09/29/21 Status: Ordered Start: 07-10-2021 End: 06-18-2023 Semaglutide (Ozempic) 0.25 m g or 0.5 mg(2 mg/1.5 mL) Pen Injector Discontinued 0.5 MG SUBCUT every week July 10, 2021 12:00am June 18, 2023 11:03am Saturday vitamin b12 1 mg oral tablet (4 sources) Vitamin B12 Start: 06-18-2023 take 1 tablet by mouth every other day Cyanocobalamin (Vitamin B-12) (Vitamin B-12) 1,000 mcg tablet Active 1000 MCG PO .every other day June 18, 2023 11:02am Start: 01-15-2022 End: 06-18-2023 take 1 tablet by mouth once daily Cyanocobalamin (Vitamin B-12) (Vitamin B-12) 1,000 mcg Tablet Discontinued 1000 MCG PO Daily January 15, 2022 12:00am June 18, 2023 11:08am Vitamin D 25 MCG (1000 UT) (20 sources) take 1 tablet by mouth once rg y Vitamin D 25 MCG (1000 UT) 1 tablet Orally Once a day Active Vitamins/Minerals (20 sources) Vitamins/Mineral s as directed Orally Active Completed/Discontinued Medications Medication Drug Class(es) Dates Sig (Normalized) Sig (Original) amoxicillin 875 mg / clavulanate 125 mg oral tablet (3 sources) Penicillin-class Antibacterial Start: 06-24-2020 End: 07-11-2020 take 1 tablet by mouth twice daily Amoxicillin-Pot Clavulanate (Augmentin) 875-125 mg tablet Discontinued 1 TAB PO Twice daily June 24, 2020 12:00am July 11, 2020 5:52pm carvedilol 25 mg oral tablet (20 sources) alpha-Adrenergic Jason, beta-Adrenergic Jason Start: 01-17-2022 End: 06-18-2023 take 25 mg by mouth twice daily at mealtime Carvedilol Discontinued 25 MG PO Twice daily with meals 60 30 January 17, 2022 12:00am June 18, 2023 11:01am Start: 09-07-2021 take 1 tablet by bhavik [...] mg by mouth twice daily with meals. ergocalciferol, vitamin D2, (VITAMIN D2 ORAL) (1 [...] d 40 MG PO Twice daily June 22, 2020 12:00am July 10, 2021 9:56am Comment on above: TAKE 1 2 (ONE HALF) TABLET BY MOUTH TWICE DAILY FreeStyle Precision Ja Test - (1 source) Start: 8 FreeStyle Precision Ja Test - as directed In Vitro as prompted by freestyle 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 for high or low glucose, up ot TID Mar, Not-Taking Insulin Aspart U-100 (Novolog Flexpen U-100 Insulin) 100 unit/mL (3 mL) Insulin Pen (3 sources) Start: 2 End: 4 inject 5 [IU] by subcutaneous injection three times daily Insulin Aspart U-100 (Novolog Flexpen U-100 Insulin) 100 unit/mL (3 mL) Insulin Pen Discontinued 1 UNIT SUBCUT Three times daily January 15, 2022 12:00am June 18, 2023 11:08am 5 units at times depending on blood [...] depending on blood sugar 3 ml insulin detemir 100 unt/ml pen injector (20 sources) Insulin Analog Start: 01-15-2022 End: 01-15-2022 inject 1 [IU] by subcutaneous injection twice [...] insulin, regular, human 100 unt/ml injectable solution (4 sources) Insulin Start: 07-11-2020 End: 01-15-2022 Insulin [...] day Not-Taking/PRN predniSONE 20 mg oral tablet (3 sources) Start: 06-24-2020 End: 07-11-2020 take 40 mg by mouth once daily Prednisone Discontinued 40 MG PO Daily 18 01June 24, 2020 12:00am July 11, 2020 5:52pm Semaglutide (1 source) Start: 06-18-2023 End: 06-18-2023 inject 1 mg by subcutaneous injection every week Semaglutide Discontinued 1 MG SUBCUT every week June 18, 2023 12:00am June 18, 2023 11:15am thiamine 100 mg oral tablet (20 sources) take 1 tablet by mouth every twenty-four hours Vitamin B-1 100 MG 1 tablet Orally Once a day Not-Taking/PRN ticagrelor 90 mg oral tablet (3 sources) Start: 07-13-2020 End: 07-10-2021 take 1 tablet by mouth twice daily Ticagrelor (Brilinta) 90 mg Tablet Discontinued 90 MG PO Twice daily 180 90 July 13, 2020 12:00am July 10, 2021 9:59am triamcinolone acetonide 0.95915 mg/mg topical ointment (1 source) Corticosteroid triamcinolone [...] Date Documented Date Episodic/Chronic Acute myocardial infarction (14 sources) Myocardial infarction; Translations: [Non-ST elevation (NSTEMI) [...] Chronic Chronic obstructive pulmonary disease and bronchiectasis (3 sources) Acute exacerbation of chronic obstructive airways [...] artery disease; Translations: [Atherosclerotic heart disease of [place] coronary artery without angina pectoris] Onset: 2 [...] Resolved: 2 Chronic Diabetes mellitus without complication (20 sources) Diabetes mellitus; Translations: [Type 2 diabetes [...] Onset: 9 09-07-2021 Chronic Nonspecific chest pain (8 sources) Chest pain; Translations: [Chest pain, unspecified] Onset: 2 07-11-2020 Episodic Nutritional deficiencies (20 sources) Vitamin D deficiency; Translations: [Vitamin D deficiency, unspecified] Onset: 1 Resolved: 2 Chronic Other aftercare (20 sources) Long-term current use of insulin; Translations: [watermaster (current) use of insulin] Episodic Other aftercare (11 sources) watermaster (current) use of insulin; Translations: [watermaster current use of insulin Z79.4] Onset: 1 [...] proteins] 07-11-2020 Episodic Other lower respiratory disease (3 sources) Hypoxia; Translations: [Hypoxemia] 06-22-2020 Episodic Other [...] Episodic Other nutritional; endocrine; and metabolic disorders (2 sources) Body mass index (BMI) 26.0-26.9, adult; Translations: [Body Mass Index 26.0-26.9, adult] Episodic Other nutritional; endocrine; and metabolic disorders (1 source) Overweight in adulthood with body mass index of 25 or more but less than 30; Translations: [Body mass index (BMI) 26.0-26.9, adult] 06-18-2023 Episodic Other screening for suspected conditions (not mental disorders or infectious disease) (7 sources) Increased immunoglobulin; Translations: [Patient encounter status] [...] Onset: 09-29-2021 Episodic Other aftercare (1 source) watermaster (current) use of aspirin; Translations: [[facility] CURRENT USE OF ASPIRIN] Onset: 04-03-2022 Episodic Other aftercare (1 source) Other terminal superintendent (current) drug therapy; Translations: [OTH [facility] CURRENT DRUG THERAPY] Onset: 04-03-2022 Episodic Other [...] Test Name Value Interpretation Reference Range Facility Cholesterol in LDL Calc [Mas s/Vol]on 06-13-2023 Cholesterol in LDL [Mass/Vol] 29.0 mg/dL [facility] Comment on above: <100 mg/dl [id number] 0-129 mg/dl NEAR OR ABOVE [id number] mg/dl BORDERLINE [id number] mg/dl HIGH>190 mg/dl VERY HIGH Cholesterol in VLDL Calc [Ma ss/Vol]on 06-13-2023 Cholesterol in VLDL [Mass/Vol] 24.8 mg/dL [facility] Laboratory - Chemistry and C hemistry - challengeon 06-13-2023 Cholesterol [Mass/Vol] 87 mg/dL <=[address] [facility] Cholesterol in HDL [Mass/Vol] 34 mg/dL 40-[address] [facility] Comment on above: > or =60 mg/dl - LOW CARDIOVASCULAR RISK<40 mg/dl - HIGH CARDIOVASCULAR RISK Triglyceride [Mass/Vol] 124 mg/dL <=[address] [facility] Serum or plasma total choles terol/high density lipoprotein (HDL) cholesterol mass yulia 06-13-2023 Cholesterol.total/Cho lesterol in HDL [Mass ratio] 2.6 {ratio} [facility] Comment on above: 3.3 - 4.4 LOW RISK4. 4 - 7.1 AVERAGE RISK7.1 - 11.0 MODERATE RISK>11.0 HIGH RISK Office Visiton 05-07-2023 Follow-up visit [id number] Lani Lizama 1950 [facility] Provider Department Center 05/07/2023 KEVIN DEMPSEY Family History Problem Relation Age of Onset Heart attack Mother Other Father Other Brother Heart attack Maternal Grandmother Heart attack Maternal Grandfather Family Status - Relation Status Age at Mother Father Brother Maternal Grandmother Maternal Grandfather Level of Service:[id number] [place] OFFICE/OUTPATIENT ESTABLISHED LOW MDM 20 MIN Normal [facility] Office Visiton 04-30-2023 Follow-up visit [id number] Lani Lizama 1950 [facility] Provider Department Center 04/30/2023 LAILA MCBRIDE Family History Problem Relation Age of Onset Heart attack Mother Other Father Other Brother Heart attack Maternal Grandmother Heart attack Maternal Grandfather Family Status - Relation Status Age at Mother Father Brother Maternal Grandmother Maternal Grandfather Level of Service:[id number] [place] OFFICE/OUTPATIENT ESTABLISHED MOD MDM 30 MIN Normal [facility] Office Visiton 03-18-2023 Follow-up visit [id number] Lani Lizama 1950 [facility] Provider Department Center 03/18/2023 LAILA MCBRIDE Family History Problem Relation Age of Onset Heart attack Mother Other Father Other Brother Heart attack Maternal Grandmother Heart attack Maternal Grandfather Family Status - Relation Status Age at Mother Father Brother Maternal Grandmother Maternal Grandfather Level of Service:[id number] [place] OFFICE/OUTPATIENT ESTABLISHED MOD MDM 30 MIN Normal [facility] A1C HEMOGLOBINon 03-12-2023 HbA1c (Bld) [Mass fraction] 7.1 % [facility] Other Glucose - FINGER STICKon Glucose [Mass/Vol] 151 mg/dL [facility] Other HbA1c (Bld) [Mass fraction]o n 03-12-2023 A1C HEMOGLOBIN [facility] Other Office Visiton 03-07-2023 Follow-up visit [id number] Lani Lizama 1950 M Date Provider Department Center 03/07/2023 PINKY JULES MARCELINO Armas Family History Problem Relation Age of Onset Heart attack Mother Other Father Other Brother Heart attack Maternal Grandmother Heart attack Maternal Grandfather Family Status - Relation Status Age at Mother Father Brother Maternal Grandmother Maternal Grandfather Level of Service:[id number] [place] OFFICE/OUTPATIENT ESTABLISHED MOD MDM 30-39 MIN Normal [facility] Orders Onlyon 02-27-2023 Orders Only [id number] Lani Lizama 1950 Date Provider Department Center 02/27/2023 GEOVANNA MONTES MARCELINO Armas Family History Problem Relation Age of Onset Heart attack Mother Other Father Other Brother Heart attack Maternal Grandmother Heart attack Maternal Grandfather Family Status - Relation Status Age at Mother Father Brother Maternal Grandmother Maternal Grandfather Normal [facility] Office Visiton 02-19-2023 Follow-up visit [id number] Lani Lizama 1950 Date Provider Department Center 02/19/2023 DEISY SCHWARTZ MARCELINO Armas Family History Problem Relation Age of Onset Heart attack Mother Other Father Other Brother Heart attack Maternal Grandmother Heart attack Maternal Grandfather Family Status - Relation Status Age at Mother Father Brother Maternal Grandmother Maternal Grandfather Level of Service:[id number] [place] POSTOP FOLLOW UP VISIT RELATED TO ORIGINAL PX Normal [facility] HPon 02-12-2023 HP ------ -- Attestation [...] and hypertension. He was recently admitted to [facility] for NSTEMI. Had inpatient stress test and heart cath. Denies SOB but still having chest pain and has taken nitroglycerin a few times for relief. Had CT chest last week s/p discharge. Cardiac catheterization revealed patent bypass grafts and worsening [place] vessel disease. Medications were adjusted. I had [...] the morning. rubina (more content not included)... [facility] NURSNOTEon 02-12-2023 NURSNOTE RN educated pt on d/ c instructions. RN encouraged pt to voice any questions or concerns. Pt verbalizes no questions or concerns at this time. [facility] NURSNOTE CHG wipes and iodine nasal swab completed per protocol. [facility] Orders Onlyon 02-12-2023 Orders Only [id number] Lani Lizama 1950 M Date Provider Department Center 02/12/2023 PORFIRIO GAXIOLA [facility] Family History Problem Relation Age of Onset Heart attack Mother Other Father Other Brother Heart attack Maternal Grandmother Heart attack Maternal Grandfather Family Status - Relation Status Age at Mother Father Brother Maternal Grandmother Maternal Grandfather [facility] Follow-Upon 02-01-2023 Follow-Up [id number] Lani Lizama 1950 Date Provider Department Center 02/01/2023 LAILA MCBRIDE MARCELINO [facility] Family History Problem Relation Age of Onset Heart attack Mother Other Father Other Brother Heart attack Maternal Grandmother Heart attack Maternal Grandfather Family Status - Relation Status Age at Mother Father Brother Maternal Grandmother Maternal Grandfather Level of Service:55252 [place] OFFICE/OUTPATIENT ESTABLISHED MOD MDM 30-39 MIN Reason for Visit and Comments: Follow-up [[id number]] [facility] 30on 01-28-2023 30 The patient is Moder ately Stable - Low risk of patient condition declining or worsening The patient's goals for the shift include comfort The clinical goals for the shift include vss, safety Over the shift, the patient continued to make progress toward the following goals. Normal [facility] APTTon 01-28-2023 ACTIVATED PARTIAL THROMBOPLASTIN TIME IN PPP BY COAGULATION ASSAY 125.9 Seconds High 25.0-35.0 [facility] Comment on above: Result Comment: Clin ical significance of the APTT is questionable in the presence of heparin. Performed By: #### L [id number] #### [facility] (BEAK[facility]) [address] [place] [address] BASIC METABOLIC PANELon 01-01 Anion gap [Moles/Vol] 10 mmol/L Normal 7-20 [facility] Comment on above: Performed By: #### L AB15 ####[facility] ([facility])[address] [place] [address] Calcium [Mass/Vol] 9.1 mg/dL Normal 8.6-10.3 [facility] Comment on above: Performed By: #### L AB15 ####[facility] ([facility])[address] [place] [address] Chloride [Moles/Vol] 110 mmol/L High 98-107 [facility] Comment on above: Performed By: #### L AB15 ####[facility] ([facility])[address] [place] [address] CO2 [Moles/Vol] 24 mmol/L Normal 21-31 [facility] Comment on above: Performed By: #### L AB15 ####[facility] ([facility])[address] [place] [address] Creatinine [Mass/Vol] 1.46 mg/dL High 0.70-1.30 [facility] Comment on above: Performed By: #### L AB15 ####[facility] ([facility])[address] [place] [address] GLOMERULAR FILTRATION RATE ML/MIN/1.73 SQ M.PREDICTED 51.1 mL/min/1.73m*2 Low >60.0 [facility] Comment on above: Result Comment: [facility]???s estimated glomerular filtration rate (eGFR) will [...] of individuals. Performed By: #### L AB15 ####[facility] ([facility])[address] [place] [address] Glucose [Mass/Vol] 133 mg/dL High 70-100 [facility] Comment on above: Performed By: #### L AB15 ####[facility] ([facility])[address] [place] [address] Potassium [Moles/Vol] 4.0 mmol/L Normal 3.5-5.1 [facility] Comment on above: Performed By: #### L AB15 ####[facility] ([facility])[address] [place] [address] Sodium [Moles/Vol] 140 mmol/L Normal 136-145 [facility] Comment on above: Performed By: #### L AB15 ####[facility] ([facility])[address] [place] [address] Urea nitrogen [Mass/Vol] 23 mg/dL Normal 7-25 [facility] Comment on above: Performed By: #### L AB15 ####[facility] ([facility])[address] [place] [address] UREA NITROGEN/CREATININE (MASS RATIO) IN SER/PLAS 15.8 Normal [facility] Comment on above: Performed By: #### L AB15 ####[facility] ([facility])[address] [place] [address] CBCon 01-28-2023 Erythrocyte distribution width (RBC) [Ratio] 13.2 % Normal 11.5-15.0 [facility] Comment on above: Performed By: #### L [id number] ####[facility] [place] [address] ERYTHROCYTE MEAN CORPUSCULAR HEMOGLOBIN CONCENTRATION (G/DL) BY AUTOMATED 33.8 g/dL Normal 32.0-35.0 [facility] Comment on above: Performed By: #### L [id number] ####[facility] [place] [address] Hematocrit (Bld) [Volume fraction] 39.0 % Normal 39.0-55.0 [facility] Comment on above: Performed By: #### L [id number] ####[facility] [place] [address] Hemoglobin (Bld) [Mass/Vol] 13.2 g/dL Normal 13.0-17.0 [facility] Comment on above: Performed By: #### L [id number] ####[facility] ([facility]AKER)[address] [place] [address] MCH (RBC) [Entitic mass] 31.1 pg Normal 27.0-33.0 [facility] Comment on above: Performed By: #### L [id number] ####[facility] ([facility])[address] [place] [address] MCV (RBC) [Entitic vol] 91.8 fL Normal 82.0-98.0 [facility] Comment on above: Performed By: #### L [id number] ####[facility] ([facility])[address] [place] [address] PLATELETS (10*3/UL) IN BLOOD AUTOMATED COUNT 141 10*3/uL Low 150-400 [facility] Comment on above: Performed By: #### L [id number] ####[facility] ([facility])[address] [place] [address] RBC (Bld) [#/Vol] 4.25 10*6/uL Normal 4.20-5.[address] [facility] Comment on above: Performed By: #### L [id number] ####[facility] ([facility])[address] [place] [address] WBC (Bld) [#/Vol] 6.40 10*3/uL Normal 4.00-10.[address] [facility] Comment on above: Performed By: #### L [id number] ####[facility] ([facility])[address] [place] [address] LIPID PANELon 01-28-2023 CHOL/HDL 3.7 mg/dL Normal [facility] Comment on above: Performed By: #### L [id number] #### [facility] ([facility]) [address] [place] [address] Cholesterol [Mass/Vol] 111 mg/dL Low 120-200 [facility] Comment on above: Performed By: #### L [id number] #### [facility] ([facility]) [address] [place] [address] Magnesium [Mass/Vol] 172 mg/dL High 40-149 [facility] Comment on above: Result Comment: TRIG LYCERIDE REFERENCE RANGE: 20 YEARS AND OLDER CARDIOVASCULAR RISK LESS THAN 150 mg/dL LOW RISK 150 TO 199 mg/dL BORDERLINE RISK 200 mg/dL AND GREATER HIGH RISK Performed By: #### L [id number] #### [facility] ([facility]) [address] [place] [address] Magnesium [Mass/Vol] 47 mg/dL Normal 0-160 [facility] Comment on above: Performed By: #### L [id number] #### [facility] ([facility]) [address] [place] [address] Magnesium [Mass/Vol] 30 mg/dL Normal 23-92 [facility] Comment on above: Performed By: #### L [id number] #### [facility] ([facility]) [address] [place] [address] NON HDL CHOL. (LDL+VLDL) 81 Normal [facility] Comment on above: Performed By: #### L [id number] #### [facility] [address] [place] [address] TOTAL VLDL-C 34 mg/dL Normal 0-40 [facility] Comment on above: Performed By: #### L [id number] #### [facility] ([facility]) [address] [place] [address] Orders Onlyon 01-28-2023 Orders Only [id number] Lani Lizama 1950 M Date Provider Department Center 01/28/2023 MARGOT PAUL [facility] Family History Problem Relation Age of Onset Heart attack Mother Other Father Other Brother Heart attack Maternal Grandmother Heart attack Maternal Grandfather Family Status - Relation Status Age at Mother Father Brother Maternal Grandmother Maternal Grandfather Normal [facility] POCT GLUCOSE METER UNSOLICIT ED RESULTSon 01-28-2023 Glucose [Mass/Vol] 155 mg/dL High 70-105 [facility] Comment on above: Order Comment: Waive d Testing in the ED is performed under the ED CLIA certificate #[id number]. Result Comment: [email or web address] Performed By: #### L [id number] ####[facility] ([facility])[address] [place] [address] Glucose [Mass/Vol] 151 mg/dL High 70-105 [facility] Comment on above: Order Comment: Waive d Testing in the ED is performed under the ED CLIA certificate #[id number]. Result Comment: [email or web address] Performed By: #### L [id number] #### [facility] ([facility]) [address] [place] [address] Glucose [Mass/Vol] 133 mg/dL High 70-105 [facility] Comment on above: Order Comment: Waive d Testing in the ED is performed under the ED CLIA certificate #[id number]. Result Comment: [email or web address] Performed By: #### L [id number] #### [facility] ([facility]) [address] [place] [address] 30on 01-27-2023 30 The patient is Moder [...] to discharge with patient and caregiver Normal [facility] APTTon 01-27-2023 ACTIVATED PARTIAL THROMBOPLASTIN TIME IN PPP BY COAGULATION ASSAY 113.7 Seconds High 25.0-35.0 [facility] Comment on above: Result Comment: Clin ical significance of the APTT is questionable in the presence of heparin. Performed By: #### L [id number] ####[facility] ([facility])[address] [place] [address] BASIC METABOLIC PANELon 12-31 Anion gap [Moles/Vol] 13 mmol/L Normal 7-20 [facility] Comment on above: Performed By: #### L [id number] ####[facility] ([facility])[address] [place] [address] Calcium [Mass/Vol] 9.4 mg/dL Normal 8.6-10.3 [facility] Comment on above: Performed By: #### L [id number] ####[facility] ([facility])[address] [place] [address] Chloride [Moles/Vol] 106 mmol/L Normal 98-107 [facility] Comment on above: Performed By: #### L [id number] ####[facility] ([facility])[address] [place] [address] CO2 [Moles/Vol] 26 mmol/L Normal 21-31 [facility] Comment on above: Performed By: #### L [id number] ####[facility] ([facility])[address] [place] [address] Creatinine [Mass/Vol] 1.71 mg/dL High 0.70-1.30 [facility] Comment on above: Performed By: #### L [id number] ####[facility] ([facility])[address] [place] [address] GLOMERULAR FILTRATION RATE ML/MIN/1.73 SQ M.PREDICTED 42.3 mL/min/1.73m*2 Low >60.0 [facility] Comment on above: Result Comment: The [facility]???s estimated glomerular filtration rate (eGFR) will [...] of individuals. Performed By: #### L [id number] ####[facility] ([facility])[address] [place] [address] Glucose [Mass/Vol] 155 mg/dL High 70-100 [facility] Comment on above: Performed By: #### L [id number] ####[facility] ([facility])[address] [place] [address] Potassium [Moles/Vol] 4.1 mmol/L Normal 3.5-5.1 [facility] Comment on above: Performed By: #### L [id number] ####[facility] ([facility])[address] [place] [address] Sodium [Moles/Vol] 141 mmol/L Normal 136-145 [facility] Comment on above: Performed By: #### L [id number] ####[facility] ([facility])[address] [place] [address] Urea nitrogen [Mass/Vol] 31 mg/dL High 7-25 [facility] Comment on above: Performed By: #### L [id number] ####[facility] ([facility])[address] [facility] [place] [address] UREA NITROGEN/CREATININE (MASS RATIO) IN SER/PLAS 18.[address] [facility] Comment on above: Performed By: #### L [id number] ####[facility] ([facility])[address] [place] [address] POCT GLUCOSE METER UNSOLICIT ED RESULTSon 01-27-2023 Glucose [Mass/Vol] 145 mg/dL High 70-105 [facility] Comment on above: Order Comment: Waive d Testing in the ED is performed under the ED CLIA certificate #[id number]. Result Comment: [email or web address] Performed By: #### L [id number] ####[facility] ([facility])[address] [facility] [place] [address] Glucose [Mass/Vol] 195 mg/dL High 70-105 [facility] Comment on above: Order Comment: Waive d Testing in the ED is performed under the ED CLIA certificate #[id number]. Result Comment: [email or web address] Performed By: #### L [id number] ####[facility] ([facility])[address] [place] [address] 30on 01-26-2023 30 The patient is Moder ately Stable - Low risk of patient condition declining or worsening The patient's goals for the shift include comfort The clinical goals for the shift include VSS, safety Problem: Safety - Adult Goal: Free from fall injury Outcome: Progressing Flowsheets (Taken 01/26/20231999) Free from fall injury: Assess patient frequently for physical needs [facility] 30 The patient is Moder ately [...] to discharge with patient and caregiver Normal [facility] 30 The patient is Moder ately Stable - Low risk of patient condition declining or worsening The patient's goals for the shift include rest The clinical goals for the shift include VSS, cath site stable Normal [facility] APTTon 01-26-2023 ACTIVATED PARTIAL THROMBOPLASTIN TIME IN PPP BY COAGULATION ASSAY 80.8 Seconds High 25.0-35.0 [facility] Comment on above: Result Comment: Clin ical significance of the APTT is questionable in the presence of heparin. Performed By: #### L [id number] #### [facility] ([facility]) [address] [place] [address] ACTIVATED PARTIAL THROMBOPLASTIN TIME IN PPP BY COAGULATION ASSAY 30.4 Seconds Normal 25.0-35.0 [facility] Comment on above: Order Comment: Check aPTT every 6 hours while on heparin infusion, or per protocol. Result Comment: Clin ical significance of the APTT is questionable in the presence of heparin. Performed By: #### L [id number] #### [facility] ([facility]) [address] [place] [address] ACTIVATED PARTIAL THROMBOPLASTIN TIME IN PPP BY COAGULATION ASSAY 30.3 Seconds Normal 25.0-35.0 [facility] Comment on above: Order Comment: Check aPTT every 6 hours while on heparin infusion, or per protocol. Result Comment: Clin ical significance of the APTT is questionable in the presence of heparin. Performed By: #### L [id number] #### [facility] ([facility]) [address] [place] [address] BASIC METABOLIC PANELon 10- Anion gap [Moles/Vol] 13 mmol/L Normal 7-20 [facility] Comment on above: Performed By: #### L [id number] #### [facility] ([facility]) [address] [place] [address] Calcium [Mass/Vol] 9.1 mg/dL Normal 8.6-10.3 [facility] Comment on above: Performed By: #### L [id number] #### [facility] [address] [place] [address] Chloride [Moles/Vol] 107 mmol/L Normal 98-107 [facility] Comment on above: Performed By: #### L [id number] #### [facility] ([facility]) [address] [place] [address] CO2 [Moles/Vol] 22 mmol/L Normal 21-31 [facility] Comment on above: Performed By: #### L [id number] #### [facility] ([facility]) [address] [place] [address] Creatinine [Mass/Vol] 1.77 mg/dL High 0.70-1.30 [facility] Comment on above: Performed By: #### L [id number] #### [facility] ([facility]) [address] [place] [address] GLOMERULAR FILTRATION RATE ML/MIN/1.73 SQ M.PREDICTED 40.6 mL/min/1.73m*2 Low >60.0 [facility] Comment on above: Result Comment: The [facility]???s estimated glomerular filtration rate (eGFR) will [...] individuals. Performed By: #### L [id number] #### [facility] [address] [place] [address] Glucose [Mass/Vol] 125 mg/dL High 70-100 [facility] Comment on above: Performed By: #### L [id number] #### [facility] ([facility]) [address] [place] [address] Potassium [Moles/Vol] 4.2 mmol/L Normal 3.5-5.1 [facility] Comment on above: Performed By: #### L [id number] #### [facility] ([facility]) [address] [place] [address] Sodium [Moles/Vol] 138 mmol/L Normal 136-145 [facility] Comment on above: Performed By: #### L [id number] #### [facility] [address] [address] Urea nitrogen [Mass/Vol] 27 mg/dL High 7-25 [facility] Comment on above: Performed By: #### L [id number] #### [facility] [address] [place] [address] UREA NITROGEN/CREATININE (MASS RATIO) IN SER/PLAS 15.3 Normal [facility] Comment on above: Performed By: #### L [id number] #### [facility] [address] [place] [address] CBCon 01-26-2023 Erythrocyte distribution width (RBC) [Ratio] 13.2 % Normal 11.5-15.0 [facility] Comment on above: Performed By: #### L [id number] #### [facility] [address] [place] [address] ERYTHROCYTE MEAN CORPUSCULAR HEMOGLOBIN CONCENTRATION (G/DL) BY AUTOMATED 34.3 g/dL Normal 32.0-35.0 [facility] Comment on above: Performed By: #### L [id number] #### [facility] [address] [place] [address] Hematocrit (Bld) [Volume fraction] 42.0 % Normal 39.0-55.0 [facility] Comment on above: Performed By: #### L [id number] #### [facility] ([facility]) [address] [place] [address] Hemoglobin (Bld) [Mass/Vol] 14.4 g/dL Normal 13.0-17.0 [facility] Comment on above: Performed By: #### L [id number] #### [facility] ([facility]) [address] [place] [address] MCH (RBC) [Entitic mass] 31.0 pg Normal 27.0-33.0 [facility] Comment on above: Performed By: #### L [id number] #### [facility] ([facility]) [address] [place] [address] MCV (RBC) [Entitic vol] 90.3 fL Normal 82.0-98.0 [facility] Comment on above: Performed By: #### L [id number] #### [facility] ([facility]) [address] [place] [address] PLATELETS (10*3/UL) IN BLOOD AUTOMATED COUNT 163 10*3/uL Normal 150-400 [facility] Comment on above: Performed By: #### L [id number] #### [facility] ([facility]) [address] [place] [address] RBC (Bld) [#/Vol] 4.65 10*6/uL Normal 4.20-5.[address] [facility] Comment on above: Performed By: #### L [id number] #### [facility] ([facility]) [address] [place] [address] WBC (Bld) [#/Vol] 8.72 10*3/uL Normal 4.00-10.[address] [facility] Comment on above: Performed By: #### L [id number] #### [facility] ([facility]) [address] [place] [address] POCT GLUCOSE METER UNSOLICIT ED RESULTSon 01-26-2023 Glucose [Mass/Vol] 155 mg/dL High 70-105 [facility] Comment on above: Order Comment: Waive d Testing in the ED is performed under the ED CLIA certificate #[id number]. Result Comment: [email or web address] Performed By: #### L [id number] ####[facility] ([facility] [place] [address] Glucose [Mass/Vol] 120 mg/dL High 70-105 [facility] Comment on above: Order Comment: Waive d Testing in the ED is performed under the ED CLIA certificate #[id number]. Result Comment: [email or web address] Performed By: #### L [id number] #### [facility] ([facility]) [address] [place] [address] Glucose [Mass/Vol] 155 mg/dL High 70-105 [facility] Comment on above: Order Comment: Waive d Testing in the ED is performed under the ED CLIA certificate #[id number]. Result Comment: [email or web address] Performed By: #### L [id number] ####[facility] ([facility])[address] [place] [address] 30on 01-25-2023 30 The patient is Moder [...] to discharge with patient and caregiver Normal [facility] ANTI-XA (HEPARIN LEVEL)on HEPARIN UNFRACTIONATED (U/ML) IN PPP BY CHROMOGENIC METHOD 0.88 IU/mL High 0.3-0.7 [facility] Comment on above: Order Comment: Anti- Xa (Heparin level) added per protocol. Result Comment: Rhona roxaban and Apixaban will interfere with the anti Xa assay used to monitor UFH and LMWH. Performed By: #### L [id number] ####[facility] ([facility])[address] [place] [address] APTTon 01-25-2023 ACTIVATED PARTIAL THROMBOPLASTIN TIME IN PPP BY COAGULATION ASSAY 153.8 Seconds Critically high 25.0-35.0 [facility] Comment on above: Order Comment: Check aPTT every 6 hours while on heparin infusion, or per protocol. Result Comment: Clin ical significance of the APTT is questionable in the presence of heparin. Performed By: #### L [id number] #### [facility] ([facility]) [address] [place] [address] B-TYPE NATRIURETIC PEPTIDEon 01-25-2023 Natriuretic peptide B (Bld) [Mass/Vol] 579 pg/mL High 0-100 [facility] Comment on above: Performed By: #### L [id number] #### [facility] ([facility]) [address] [place] [address] BASIC METABOLIC PANELon 12-31 Anion gap [Moles/Vol] 15 mmol/L Normal 7-20 [facility] Comment on above: Performed By: #### L [id number] #### [facility] ([facility]) [address] [place] [address] Calcium [Mass/Vol] 9.6 mg/dL Normal 8.6-10.3 [facility] Comment on above: Performed By: #### L [id number] #### [facility] ([facility]) [address] [place] [address] Chloride [Moles/Vol] 103 mmol/L Normal 98-107 [facility] Comment on above: Performed By: #### L [id number] #### [facility] ([facility]) [address] [place] [address] CO2 [Moles/Vol] 27 mmol/L Normal 21-31 [facility] Comment on above: Performed By: #### L [id number] #### [facility] ([facility]) [address] [place] [address] Creatinine [Mass/Vol] 1.83 mg/dL High 0.70-1.30 [facility] Comment on above: Performed By: #### L [id number] #### [facility] ([facility]) [address] [place] [address] GLOMERULAR FILTRATION RATE ML/MIN/1.73 SQ M.PREDICTED 39.0 mL/min/1.73m*2 Low >60.0 [facility] Comment on above: Result Comment: The [facility]???s estimated glomerular filtration rate (eGFR) will [...] individuals. Performed By: #### L [id number] #### [facility] ([facility]) [address] [place] [address] Glucose [Mass/Vol] 168 mg/dL High 70-100 [facility] Comment on above: Performed By: #### L [id number] #### [facility] ([facility]) [address] [place] [address] Potassium [Moles/Vol] 4.7 mmol/L Normal 3.5-5.1 [facility] Comment on above: Performed By: #### L [id number] #### [facility] ([facility]) [address] [place] [address] Sodium [Moles/Vol] 140 mmol/L Normal 136-145 [facility] Comment on above: Performed By: #### L [id number] #### [facility] ([facility]) [address] [place] [address] Urea nitrogen [Mass/Vol] 28 mg/dL High 7-25 [facility] Comment on above: Performed By: #### L [id number] #### [facility] ([facility]) [address] [place] [address] UREA NITROGEN/CREATININE (MASS RATIO) IN SER/PLAS 15.3 Normal [facility] Comment on above: Performed By: #### L [id number] #### [facility] ([facility]) [address] [place] [address] CBCon 01-25-2023 Erythrocyte distribution width (RBC) [Ratio] 13.1 % Normal 11.5-15.0 [facility] Comment on above: Performed By: #### L [id number] ####[facility] ([facility])[address] [place] [address] ERYTHROCYTE MEAN CORPUSCULAR HEMOGLOBIN CONCENTRATION (G/DL) BY AUTOMATED 33.7 g/dL Normal 32.0-35.0 [facility] Comment on above: Performed By: #### L [id number] ####[facility] ([facility])[address] [place] [address] Hematocrit (Bld) [Volume fraction] 46.3 % Normal 39.0-55.0 [facility] Comment on above: Performed By: #### L [id number] ####[facility] ([facility])[address] [place] [address] Hemoglobin (Bld) [Mass/Vol] 15.6 g/dL Normal 13.0-17.0 [facility] Comment on above: Performed By: #### L [id number] ####[facility] ([facility])[address] [place] [address] MCH (RBC) [Entitic mass] 30.7 pg Normal 27.0-33.0 [facility] Comment on above: Performed By: #### L [id number] ####[facility] ([facility])[address] [place] [address] MCV (RBC) [Entitic vol] 91.1 fL Normal 82.0-98.0 [facility] Comment on above: Performed By: #### L [id number] ####[facility] ([facility])[address] [place] [address] PLATELETS (10*3/UL) IN BLOOD AUTOMATED COUNT 185 10*3/uL Normal 150-400 [facility] Comment on above: Performed By: #### L [id number] ####[facility] ([facility])[address] [place] [address] RBC (Bld) [#/Vol] 5.08 10*6/uL Normal 4.20-5.[address] [facility] Comment on above: Performed By: #### L [id number] ####[facility] ([facility])[address] [place] [address] WBC (Bld) [#/Vol] 8.91 10*3/uL Normal 4.00-10.[address] [facility] Comment on above: Performed By: #### L [id number] ####[facility] ([facility])[address] [place] [address] CONSULTon 01-25-2023 CONSULT ------ -- Attestation signed [...] was a direct transfer from [facility], the patient is known to [...] artery stenosis, Coronary artery disease, Diabetes mellitus ([facility]), Hyperlipidemia, Hypertension, PVD (peripheral vascular disease) ([facility]), and Third degree heart block ([facility]). Surgical History He has a past surgical [...] mg by mouth in the morning. HYDROcodone-acetaminophen ([place]) 5-325 mg tablet TAKE 1 TABLET BY [...] 138/71 93 10 (more content not included)... [facility] HPon 01-25-2023 HP H&P reviewed. The jaron mark was examined and there are no changes to the H&P. 72 y.o. male was a direct transfer from [facility], the patient is known to have Coronary artery disease s/p CABG and multiple PCI in the past, PAD, hyperlipidemia, hypertension. The patient has been having worsening chest pain for the last 2 months which got much worse yesterday, the patient went to the ER his troponin was positive he was referred for further evaluation management to [facility]. The patient had coronary angiography and December 2021 showed patent LAD/MENJIVAR graft, patent SVG to OM and PDA. Patient will undergo LHC to evaluate CAD and look for patency of grafts and previously placed stents. Risks and benefits were discussed in detail with patient and agreed to proceed. Normal [facility] PLATELET COUNTon 01-25-2023 PLATELETS (10*3/UL) IN BLOOD AUTOMATED COUNT 183 10*3/uL Normal 150-400 [facility] Comment on above: Performed By: #### L [id number] #### [facility] ([facility]) [address] [place] [address] POCT GLUCOSE METER UNSOLICIT ED RESULTSon 01-25-2023 Glucose [Mass/Vol] 211 mg/dL High 70-105 [facility] Comment on above: Order Comment: Waive d Testing in the ED is performed under the ED CLIA certificate #[id number]. Result Comment: [email or web address] [email or web address] Performed By: #### L [id number] #### [facility] ([facility]) [address] [place] [address] Glucose [Mass/Vol] 143 mg/dL High 70-105 [facility] Comment on above: Order Comment: Waive d Testing in the ED is performed under the ED CLIA certificate #[id number]. Result Comment: [email or web address] Performed By: #### L [id number] #### [facility] ([facility]) [address] [place] [address] TROPONIN Ion 01-25-2023 Troponin I.cardiac [Mass/Vol] 1.75 ng/mL Critically high 0.00-0.04 [facility] Comment on above: Result Comment: ADILIA BRYANT INITIAL CRITICAL HIGH; RESPUN AND RETESTED Performed By: #### L [id number] #### [facility] ([facility]) [address] [place] [address] Office Visiton 01-17-2023 Follow-up visit [id number] Lani Lizama Nakul 1950 M Date Provider Department Center 01/17/2023 Scott-PINKY BISHOP MARCELINO [facility] Family History Problem Relation Age of Onset Heart attack Mother Other Father Other Brother Heart attack Maternal Grandmother Heart attack Maternal Grandfather Family Status - Relation Status Age at Mother Father Brother Maternal Grandmother Maternal Grandfather Level of Service:60023 [place] OFFICE/OUTPATIENT ESTABLISHED MOD MDM 30-39 MIN Normal [facility] Office Visiton 10-09-2022 Follow-up visit [id number] Lani Lizama 1950 M Date Provider Department Center 10/09/2022 DEISY SCHWARTZ MARCEL[facility] Family History Problem Relation Age of Onset Heart attack Mother Other Father Other Brother Heart attack Maternal Grandmother Heart attack Maternal Grandfather Family Status - Relation Status Age at Mother Father Brother Maternal Grandmother Maternal Grandfather Level of Service:44876 [place] OFFICE/OUTPATIENT ESTABLISHED MOD MDM 30-39 MIN Normal [facility] CT CHEST WO CONon 08-09-2022 CT [...] by: HAZEL SCHILLING Date: 2022-08-09 14:00 Normal [facility] Office Visiton 07-24-2022 Follow-up visit [id number] Lani Lizama 1950 M Date Provider Department Center 07/24/2022 [id number] SOARES [facility] Family History Problem Relation Age of Onset Heart attack Mother Other Father Other Brother Heart attack Maternal Grandmother Heart attack Maternal Grandfather Family Status - Relation Status Age at Mother Father Brother Maternal Grandmother Maternal Grandfather Level of Service:58939 [place] OFFICE/OUTPATIENT ESTABLISHED MOD MDM 30-39 MIN Reason for Visit and Comments: Hypertension [484985] Coronary Artery Disease [187] Normal [facility] A1C HEMOGLOBINon 06-26-2022 HbA1c (Bld) [Mass fraction] 7.4 % [employer] Other Glucose - FINGER STICKon Glucose [Mass/Vol] 267 mg/dL [employer] [facility] Other HbA1c (Bld) [Mass fraction]o n 06-26-2022 A1C HEMOGLOBIN [employer] Other PTH INTACTon 06-26-2022 PTH, Intact 37 pg/mL Normal 15-65 [facility] Comment on above: Performed By: #### C MP, CMADM #### [facility] [address] [place] [address] Dr. Mirza Sadler 37on 06-25-2022 37 -Increase Carvedilol to 12.5 mg twice a day. Take two pills of current medication, -Check blood pressure at least once a day and bring log to follow-up -Bring blood pressure monitor to follow-up appointment Normal [facility] FERRITINon 06-25-2022 Ferritin [Mass/Vol] 269.0 ng/mL Normal 26.0-388.0 [facility] Comment on above: Performed By: #### B ASSISTANT WAREHOUSE MANAGER #### [facility] [address] [place] [address] Dr. Mirza Sadler HEMOGRAM AND PLATELon 2022 Hematocrit (Bld) [Volume fraction] 44.7 % Normal 42.0-54.0 [facility] Comment on above: Performed By: #### P T, PTT #### [facility] [address] [place] [address] Dr. Mirza Sadler Hemoglobin (Bld) [Mass/Vol] 15.1 g/dL Normal 14.0-18.0 [facility] Comment on above: Performed By: #### P T, PTT #### [facility] [address] [place] [address] Dr. Mirza Sadler MCH (RBC) [Entitic mass] 30.0 pg Normal 25.9-34.0 [facility] Comment on above: Performed By: #### P T, PTT #### [facility] [address] [place] [address] Dr. Mirza Sadler MCHC (RBC) [Mass/Vol] 33.8 g/dL Normal 29.9-35.2 [facility] Comment on above: Performed By: #### P T, PTT #### [facility] [address] [place] [address] Dr. Mirza Sadler MCV (RBC) [Entitic vol] 88.9 fL Normal 80.0-94.0 [facility] Comment on above: Performed By: #### P T, PTT #### [facility] [address] [place] [address] Dr. Mirza Sadler PLT 199 103/ul Normal 150-450 [facility] Comment on above: Performed By: #### P T, PTT #### [facility] [address] [address] [address] Mirza Sadler RBC 5.03 106/ul Normal 4.70-6.10 [facility] Comment on above: Performed By: #### P T, PTT #### [facility] [address] [address] [address] Mirza Sadler WBC 8.7 103/ul Normal 4.0-11.0 [facility] Comment on above: Performed By: #### P T, PTT #### [facility] [address] [address] [address] Mirza Sadler IRON AND TIBCon 06-25-2022 % SATURATION 28.6 % Normal [facility] Comment on above: Performed By: #### B ASSISTANT WAREHOUSE MANAGER #### [facility] [address] [place] [address] Dr. Mirza Sadler Iron [Mass/Vol] 82.0 ug/dL Normal 65.0-175.0 [facility] Comment on above: Performed By: #### B ASSISTANT WAREHOUSE MANAGER #### [facility] [address] [place] [address] Dr. Mirza Sadler TIBC DIRECT 287.0 ug/dL Normal 250.0-450. 0 [facility] Comment on above: Performed By: #### B ASSISTANT WAREHOUSE MANAGER #### [facility] [address] [place] [address] Dr. Mirza Sadler MAGNESIUMon 06-25-2022 Magnesium [Mass/Vol] 2.0 mg/dL Normal 1.8-2.4 [facility] Comment on above: Performed By: #### B ASSISTANT WAREHOUSE MANAGER #### [facility] [address] [place] [address] Dr. Mirza Sadler Office Visiton 06-25-2022 Follow-up visit [id number] Lani Lizama 1950 M Date Provider Department Center 06/25/2022 DEISY SCHWARTZ [facility] Family History Problem Relation Age of Onset Heart attack Mother Other Father Other Brother Heart attack Maternal Grandmother Heart attack Maternal Grandfather Family Status - Relation Status Age at Mother Father Brother Maternal Grandmother Maternal Grandfather Level of Service:87893 [place] OFFICE/OUTPATIENT ESTABLISHED MOD MDM 30-39 MIN Reason for Visit and Comments: Chest Pain [347003] Coronary Artery Disease [187] Normal [facility] RENAL FUNCTION PANELon 06-25 Albumin [Mass/Vol] 4.2 g/dL Normal 3.4-5.0 [facility] Comment on above: Performed By: #### B ASSISTANT WAREHOUSE MANAGER #### [facility] [address] [address] [address] Mirza Sadler Calcium [Mass/Vol] 9.3 mg/dL Normal 8.5-10.1 [facility] Comment on above: Performed By: #### B ASSISTANT WAREHOUSE MANAGER #### [facility] [address] [address] [address] Mirza Sadler Chloride [Moles/Vol] 108 mmol/L Critically high 98-107 [facility] Comment on above: Performed By: #### B ASSISTANT WAREHOUSE MANAGER #### [facility] [address] [address] [address] Mirza Sadler CO2 [Moles/Vol] 29.5 mmol/L Normal 21.0-32.0 [facility] Comment on above: Performed By: #### B ASSISTANT WAREHOUSE MANAGER #### [facility] [address] [address] [address] Mirza Sadler Creatinine [Mass/Vol] 1.87 mg/dL Critically high 0.70-1.30 [facility] Comment on above: Performed By: #### B ASSISTANT WAREHOUSE MANAGER #### [facility] [address] [address] [address] Mirza Sadler EGFR-AF PUERTO RICAN 43 mL/min/1.73m2 Critically low >=60 [facility] Comment on above: Performed By: #### B ASSISTANT WAREHOUSE MANAGER #### [facility] [address] [address] [address] Mirza Sadler EGFR-NON AF PUERTO RICAN 36 mL/min/1.73m2 Critically low >=60 [facility] Comment on above: Performed By: #### B ASSISTANT WAREHOUSE MANAGER #### [facility] [address] [address] [address] Mirza Sadler Glucose [Mass/Vol] 181 mg/dL Critically high 74-106 [facility] Comment on above: Performed By: #### B ASSISTANT WAREHOUSE MANAGER #### [facility] [address] [address] [address] Mirza Sadler Phosphate [Mass/Vol] 4.8 mg/dL Critically high 2.6-4.7 [facility] Comment on above: Performed By: #### B ASSISTANT WAREHOUSE MANAGER #### [facility] [address] [address] [address] Mirza Sadler Potassium [Moles/Vol] 4.8 mmol/L Normal 3.5-5.1 [facility] Comment on above: Performed By: #### B ASSISTANT WAREHOUSE MANAGER #### [facility] [address] [address] [address] Mirza Sadler Sodium [Moles/Vol] 146 mmol/L Critically high 136-145 [facility] Comment on above: Performed By: #### B ASSISTANT WAREHOUSE MANAGER #### [facility] [address] [place] [address] Dr. Mirza Sadler Urea nitrogen [Mass/Vol] 40.0 mg/dL Critically high 7.0-18.0 [facility] Comment on above: Performed By: #### B ASSISTANT WAREHOUSE MANAGER #### [facility] [address] [place] [address] Dr. Mirza Sadler UA RANDOM W/MICROSCOPICon BACTERIA NONE SEEN Normal NONE SEEN [facility] Comment on above: Performed By: #### H STROPN #### [facility] [address] [place] [address] Dr. Mirza Sadler Bilirubin Ql (U) Negative Normal NEGATIVE [facility] Comment on above: Performed By: #### H STROPN #### [facility] [address] [place] [address] Dr. Mirza Sadler CAST NONE SEEN Normal NONE SEEN [facility] Comment on above: Performed By: #### H STROPN #### [facility] [address] [place] [address] Dr. Mirza Sadler Clarity (U) CLEAR Normal CLEAR [facility] Comment on above: Performed By: #### H STROPN #### [facility] [address] [place] [address] Dr. Mirza Sadler Color (U) LT. YELLOW Normal YELLOW [facility] Comment on above: Performed By: #### H STROPN #### [facility] [address] [address] [address] Mirza Sadler Crystals LM Nom (Urine sed) NONE SEEN Normal NONE SEEN [facility] Comment on above: Performed By: #### H STROPN #### [facility] [address] [address] [address] Mirza Sadler Epithelial cells LM Ql (Urine sed) FEW Abnormal NONE SEEN /RARE [facility] Comment on above: Performed By: #### H STROPN #### [facility] [address] [address] [address] Mirza Sadler Glucose Ql (U) 500 mg/dl Abnormal NEGATIVE [facility] Comment on above: Performed By: #### H STROPN #### [facility] [address] [place] [address] Dr. Mirza Sadler Hemoglobin Ql (U) Negative Normal NEGATIVE [facility] Comment on above: Performed By: #### H STROPN #### [facility] [address] [address] [address] Mirza Sadler Ketones Ql (U) Negative Normal NEGATIVE [facility] Comment on above: Performed By: #### H STROPN #### [facility] [address] [place] [address] Dr. Mirza Sadler LEUKOCYTES Negative Normal NEGATIVE [facility] Comment on above: Performed By: #### H STROPN #### [facility] [address] [address] [address] Mirza Sadler MUCOUS NONE SEEN Normal NONE SEEN [facility] Comment on above: Performed By: #### H STROPN #### [facility] [address] [place] [address] Dr. Mirza Sadler Nitrite Ql (U) Negative Normal NEGATIVE [facility] Comment on above: Performed By: #### H STROPN #### [facility] [address] [place] [address] Dr. Mirza Sadler pH (U) 5.5 [pH] Normal 5-9 [facility] Comment on above: Performed By: #### H STROPN #### [facility] [address] [place] [address] Dr. Mirza Sadler RBC 0-2 Normal 0-2 [facility] Comment on above: Performed By: #### H STROPN #### [facility] [address] [place] [address] Dr. Mirza Sadler SPEC GRAVITY 1.015 Normal 1.005-<=1. 025 [facility] Comment on above: Performed By: #### H STROPN #### [facility] [address] [place] [address] Dr. Mirza Sadler UA PROTEIN Negative Normal NEGATIVE/ TRACE [facility] Comment on above: Performed By: #### H STROPN #### [facility] [address] [place] [address] Dr. Mirza Sadler Urobilinogen Qn (U) 0.2 {Luisito'U}/dL Normal 0.2 - 1. 0 [facility] Comment on above: Performed By: #### H STROPN #### [facility] [address] [place] [address] Dr. Mirza Sadler WBC NONE SEEN Normal NONE SEEN [facility] Comment on above: Performed By: #### H STROPN #### [facility] [address] [place] [address] Dr. Mirza Sadler URIC ACID SERUMon 06-25-2022 Urate [Mass/Vol] 6.1 mg/dL Normal 3.5-7.2 [facility] Comment on above: Performed By: #### B ASSISTANT WAREHOUSE MANAGER #### [facility] [address] [place] [address] Dr. Mirza Sadler URINE T PROTEIN CREAT RATIOo n 06-25-2022 Protein (U) [Mass/Vol] 9.7 mg/dL Normal <=12.0 [facility] Comment on above: Performed By: #### C MP, CMADM #### [facility] [address] [place] [address] Dr. Mirza Sadler UR PROT CREAT RAT 0.14 Normal [facility] Comment on above: Performed By: #### C TANIA, DOMDM #### [facility] [address] [address] [address] Mirza Sadler URINE CREAT 71.45 mg/dL Normal 20.00-300. 00 [facility] Comment on above: Performed By: #### C TANIA, DOMDM #### [facility] [address] [address] [address] Mirza Sadler VITAMIN D 25 OHon 06-25-2022 VIT D 25-OH 44.7 ng/mL Normal [facility] Comment on above: Performed By: #### E RUR #### [facility] [address] [address] [address] Mirza Sadler VIT D RANGES SEE BELOW Normal [facility] Comment on above: Result Comment: <20 ng/mL Vit D deficient 20 - <30 ng/mL Vit D insufficient 30 - 100 ng/mL Vit D sufficient >100 ng/mL Potential Toxicity Performed By: #### E RUR #### [facility] [address] [place] [address] Dr. Mirza Sadler LIPID PROFILEon 06-18-2022 CHOL-HDL RATIO NORM SEE BELOW Normal [facility] Comment on above: Result Comment: 3.3 - 4.4 LOW RISK 4.4 - 7.1 AVERAGE RISK 7.1 - 11.0 MODERATE RISK >11.0 HIGH RISK Performed By: #### H STROPN #### [facility] [address] [address] [address] Mirza Sadler Cholesterol [Mass/Vol] 136 mg/dL Normal <=200 [facility] Comment on above: Performed By: #### H STROPN #### [facility] [address] [address] [address] Mirza Sadler Cholesterol in HDL [Mass/Vol] 38 mg/dL Critically low 40-60 [facility] Comment on above: Performed By: #### H STROPN #### [facility] [address] [address] [address] Mirza Sadler Cholesterol in LDL [Mass/Vol] 69.6 mg/dL Normal [facility] Comment on above: Performed By: #### H STROPN #### [facility] [address] [address] [address] Mirza Sadler Cholesterol.total/Cho lesterol in HDL [Mass ratio] 3.6 {ratio} Normal [facility] Comment on above: Performed By: #### H STROPN #### [facility] [address] [address] [address] Mirza Sadler HDL NORMAL > or = 60 mg/dl - LO W CARDIOVASCULAR RISK <40 mg/dl - HIGH CARDIOVASCULAR RISK Normal [facility] Comment on above: Performed By: #### H STROPN #### [facility] [address] [address] [address] Mirza Sadler LDL CALC NORMAL SEE BELOW Normal [facility] Comment on above: Result Comment: <100 mg/dl OPTIMAL 100 - 129 mg/dl NEAR OR ABOVE OPTIMAL 130 - 159 mg/dl BORDERLINE HIGH 160 - 189 mg/dl HIGH >190 mg/dl VERY HIGH Performed By: #### H STROPN #### [facility] [address] [address] [address] Mirza Sadler Triglyceride [Mass/Vol] 142 mg/dL Normal <=150 [facility] Comment on above: Performed By: #### H STROPN #### [facility] [address] [address] [address] Mirza Sadler VLDL CALC 28.4 mg/dL Normal [facility] Comment on above: Performed By: #### H STROPN #### [facility] [address] [place] [address] CHEST WO CONon 06-05-2022 CT CHEST [...] Date: 2022-06-05 16:58 Normal [facility] CT CHEST WO [facility] Other PROF CHEM 8 (BAS METB)on Anion gap [Moles/Vol] 10.2 mmol/L Normal [facility] Comment on above: Performed By: #### B ASSISTANT WAREHOUSE MANAGER #### [facility] [address] [address] [address] Mirza Sadler Calcium [Mass/Vol] 8.9 mg/dL Normal 8.5-10.1 [facility] Comment on above: Performed By: #### B ASSISTANT WAREHOUSE MANAGER #### [facility] [address] [place] [address] Dr. Mirza Sadler Chloride [Moles/Vol] 101 mmol/L Normal 98-107 [facility] Comment on above: Performed By: #### B ASSISTANT WAREHOUSE MANAGER #### [facility] [address] [address] [address] Mirza Sadler CO2 [Moles/Vol] 31.2 mmol/L Normal 21.0-32.0 [facility] Comment on above: Performed By: #### B ASSISTANT WAREHOUSE MANAGER #### [facility] [address] [address] [address] Mirza Sadler Creatinine [Mass/Vol] 1.91 mg/dL Critically high 0.70-1.30 [facility] Comment on above: Performed By: #### B ASSISTANT WAREHOUSE MANAGER #### [facility] [address] [address] [address] Mirza Sadler EGFR-AF PUERTO RICAN 42 mL/min/1.73m2 Critically low >=60 [facility] Comment on above: Performed By: #### B ASSISTANT WAREHOUSE MANAGER #### [facility] [address] [address] [address] Mirza Sadler EGFR-NON AF PUERTO RICAN 35 mL/min/1.73m2 Critically low >=60 [facility] Comment on above: Performed By: #### B ASSISTANT WAREHOUSE MANAGER #### [facility] [address] [address] [address] Mirza Sadler Glucose [Mass/Vol] 242 mg/dL Critically high 74-106 [facility] Comment on above: Performed By: #### B ASSISTANT WAREHOUSE MANAGER #### [facility] [address] [address] [address] Mirza Sadler Potassium [Moles/Vol] 4.4 mmol/L Normal 3.5-5.1 [facility] Comment on above: Performed By: #### B ASSISTANT WAREHOUSE MANAGER #### [facility] [address] [address] [address] Mirza Sadler Sodium [Moles/Vol] 138 mmol/L Normal 136-145 [facility] Comment on above: Performed By: #### B ASSISTANT WAREHOUSE MANAGER #### [facility] [address] [address] [address] Mirza Sadler Urea nitrogen [Mass/Vol] 33.0 mg/dL Critically high 7.0-18.0 [facility] Comment on above: Performed By: #### B ASSISTANT WAREHOUSE MANAGER #### [facility] [address] [address] [address] Mirza Sadler Urea nitrogen/Creatinine [Mass ratio] 17.3 mg/mg Normal [facility] Comment on above: Performed By: #### B ASSISTANT WAREHOUSE MANAGER #### [facility] [address] [address] [address] Mirza Sadler PROF CHEM 8 (BAS METB)on Anion gap [Moles/Vol] 10.7 mmol/L Normal [facility] Comment on above: Performed By: #### P T, PTT #### [facility] [address] [address] [address] Mirza Sadler Calcium [Mass/Vol] 8.9 mg/dL Normal 8.5-10.1 [facility] Comment on above: Performed By: #### P T, PTT #### [facility] [address] [address] [address] Mirza Sadler Chloride [Moles/Vol] 104 mmol/L Normal 98-107 [facility] Comment on above: Performed By: #### P T, PTT #### [facility] [address] [address] [address] Mirza Sadler CO2 [Moles/Vol] 29.4 mmol/L Normal 21.0-32.0 [facility] Comment on above: Performed By: #### P T, PTT #### [facility] [address] [place] [address] Dr. Mirza Sadler Creatinine [Mass/Vol] 1.75 mg/dL Critically high 0.70-1.30 [facility] Comment on above: Performed By: #### P T, PTT #### [facility] [address] [address] [address] Mirza Sadler EGFR-AF PUERTO RICAN 47 mL/min/1.73m2 Critically low >=60 [facility] Comment on above: Performed By: #### P T, PTT #### [facility] [address] [place] [address] Dr. Mirza Sadler EGFR-NON AF PUERTO RICAN 39 mL/min/1.73m2 Critically low >=60 [facility] Comment on above: Performed By: #### P T, PTT #### [facility] [address] [address] [address] Mirza Sadler Glucose [Mass/Vol] 191 mg/dL Critically high 74-106 [facility] Comment on above: Performed By: #### P T, PTT #### [facility] [address] [address] [address] Mirza Sadler Potassium [Moles/Vol] 4.1 mmol/L Normal 3.5-5.1 [facility] Comment on above: Performed By: #### P T, PTT #### [facility] [facility] [address] [address] [address] Mirza Sadler Sodium [Moles/Vol] 140 mmol/L Normal 136-145 [facility] Comment on above: Performed By: #### P T, PTT #### [facility] [address] [address] [address] Mirza Sadler Urea nitrogen [Mass/Vol] 31.0 mg/dL Critically high 7.0-18.0 [facility] Comment on above: Performed By: #### P T, PTT #### [facility] [address] [address] [address] Mirza Sadler Urea nitrogen/Creatinine [Mass ratio] 17.7 mg/mg Normal [facility] Comment on above: Performed By: #### P T, PTT #### [facility] [address] [address] [address] Mirza Sadler XR CHEST 2 Von [...] by: HIGINIO FLANAGAN Date: 2022-03-22 16:12 Normal [facility] A1C HEMOGLOBINon 03-20-2022 HbA1c (Bld) [Mass fraction] 6.7 % [employer] Other Glucose - FINGER STICKon Glucose [Mass/Vol] 193 mg/dL [employer] Other HbA1c (Bld) [Mass fraction]o n 03-20-2022 A1C HEMOGLOBIN [facility] Other BNPon 03-13-2022 Natriuretic peptide B (Bld) [Mass/Vol] 4825.0 pg/mL Critically high <=900.0 [facility] Comment on above: Performed By: #### E RUR #### [facility] [address] [place] [address] Dr. Mirza Sadler CBC AUTO DIFFon 03-13-2022 BASO # 0.0 103/ul Normal 0.0-0.1 [facility] Comment on above: Performed By: #### E RUR #### [facility] [address] [place] [address] Dr. Mirza Sadler Basophils/100 WBC (Bld) 0.6 % Normal 0.2-2.0 [facility] Comment on above: Performed By: #### E RUR #### [facility] [address] [place] [address] Dr. Mirza Sadler EO # 0.1 103/ul Normal 0.0-0.7 [facility] Comment on above: Performed By: #### E RUR #### [facility] [address] [place] [address] Dr. Mirza Sadler Eosinophils/100 WBC (Bld) 1.8 % Normal 0.9-7.0 [facility] Comment on above: Performed By: #### E RUR #### [facility] [address] [place] [address] Dr. Mirza Sadler Erythrocyte distribution width (RBC) [Ratio] 14.4 % Normal 11.0-15.0 [facility] Comment on above: Performed By: #### E RUR #### [facility] [address] [place] [address] Dr. Mirza Sadler Hematocrit (Bld) [Volume fraction] 36.1 % Critically low 42.0-54.0 [facility] Comment on above: Performed By: #### E RUR #### [facility] [address] [place] [address] Dr. Mirza Sadler Hemoglobin (Bld) [Mass/Vol] 11.9 g/dL Critically low 14.0-18.0 [facility] Comment on above: Performed By: #### E RUR #### [facility] [address] [place] [address] Dr. Mirza Sadler IG # 0.02 10e3/ul Normal 0.00-0.03 [facility] Comment on above: Performed By: #### E RUR #### [facility] [address] [place] [address] Dr. Mirza Sadler IG % 0.3 % Normal 0.0-0.5 [facility] Comment on above: Performed By: #### E RUR #### [facility] [address] [place] [address] Dr. Mirza Sadler LYMPH # 1.5 103/ul Normal 1.2-3.8 [facility] Comment on above: Performed By: #### E RUR #### [facility] [address] [place] [address] Dr. Mirza Sadler Lymphocytes/100 WBC (Bld) 22.6 % Normal 20.5-60.0 [facility] Comment on above: Performed By: #### E RUR #### [facility] [address] [place] [address] Dr. Mirza Sadler MANUAL DIFF REQ NO Normal [facility] Comment on above: Performed By: #### E RUR #### [facility] [address] [place] [address] Dr. Mirza Sadler MCH (RBC) [Entitic mass] 29.0 pg Normal 25.9-34.0 [facility] Comment on above: Performed By: #### E RUR #### [facility] [address] [place] [address] Dr. Mirza Sadler MCHC (RBC) [Mass/Vol] 33.0 g/dL Normal 29.9-35.2 [facility] Comment on above: Performed By: #### E RUR #### [facility] [address] [place] [address] Dr. Mirza Sadler MCV (RBC) [Entitic vol] 88.0 fL Normal 80.0-94.0 [facility] Comment on above: Performed By: #### E RUR #### [facility] [address] [address] [address] Mirza Sadler MONO # 0.7 103/ul Normal 0.3-0.8 [facility] Comment on above: Performed By: #### E RUR #### [facility] [address] [address] [address] Mirza Sadler Monocytes/100 WBC (Bld) 10.2 % Normal 1.7-12.0 [facility] Comment on above: Performed By: #### E RUR #### [facility] [address] [place] [address] Dr. Mirza Sadler NEUT # 4.3 103/ul Normal 1.4-6.5 [facility] Comment on above: Performed By: #### E RUR #### [facility] [address] [place] [address] Dr. Mirza Sadler Neutrophils/100 WBC (Bld) 64.5 % Normal 43.0-75.0 [facility] Comment on above: Performed By: #### E RUR #### [facility] [address] [place] [address] Dr. Mirza Sadler Platelet mean volume (Bld) [Entitic vol] 9.7 fL Normal 9.5-13.5 [facility] Comment on above: Performed By: #### E RUR #### [facility] [address] [place] [address] Dr. Mirza Sadler PLT 149 103/ul Critically low 150-450 [facility] Comment on above: Performed By: #### E RUR #### [facility] [address] [place], [place] [id number] Dr. Mirza Sadler RBC 4.10 106/ul Critically low 4.70-6.10 [facility] Comment on above: Performed By: #### E RUR #### [facility] [address] [place] [address] Dr. Mirza Sadler WBC 6.6 103/ul Normal 4.0-11.0 [facility] Comment on above: Performed By: #### E RUR #### [facility] [address] [address] [address] Mirza Sadler PROF CHEM 8 (BAS METB)on Anion gap [Moles/Vol] 14.6 mmol/L Normal [facility] Comment on above: Performed By: #### E RUR #### [facility] [address] [place] [address] Dr. Mirza Sadler Calcium [Mass/Vol] 8.5 mg/dL Normal 8.5-10.1 [facility] Comment on above: Performed By: #### E RUR #### [facility] [address] [place] [address] Dr. Mirza Sadler Chloride [Moles/Vol] 104 mmol/L Normal 98-107 [facility] Comment on above: Performed By: #### E RUR #### [facility] [address] [place] [address] Dr. Mirza Sadler CO2 [Moles/Vol] 22.7 mmol/L Normal 21.0-32.0 [facility] Comment on above: Performed By: #### E RUR #### [facility] [address] [place] [address] Dr. Mirza Sadler Creatinine [Mass/Vol] 1.78 mg/dL Critically high 0.70-1.30 [facility] Comment on above: Performed By: #### E RUR #### [facility] [address] [place] [address] Dr. Mirza Sadler EGFR-AF PUERTO RICAN 46 mL/min/1.73m2 Critically low >=60 [facility] Comment on above: Performed By: #### E RUR #### [facility] [address] [place] [address] Dr. Mirza Sadler EGFR-NON AF PUERTO RICAN 38 mL/min/1.73m2 Critically low >=60 [facility] Comment on above: Performed By: #### E RUR #### [facility] [address] [place] [address] Dr. Mirza Sadler Glucose [Mass/Vol] 121 mg/dL Critically high 74-106 [facility] Comment on above: Performed By: #### E RUR #### [facility] [address] [place] [address] Dr. Mirza Sadler Potassium [Moles/Vol] 3.3 mmol/L Critically low 3.5-5.1 [facility] Comment on above: Performed By: #### E RUR #### [facility] [address] [place] [address] Dr. Mirza Sadler Sodium [Moles/Vol] 138 mmol/L Normal 136-145 [facility] Comment on above: Performed By: #### E RUR #### [facility] [address] [place] [address] Dr. Mirza Sadler Urea nitrogen [Mass/Vol] 30.0 mg/dL Critically high 7.0-18.0 [facility] Comment on above: Performed By: #### E RUR #### [facility] [address] [place] [address] Dr. Mirza Sadler Urea nitrogen/Creatinine [Mass ratio] 16.9 mg/mg Normal [facility] Comment on above: Performed By: #### E RUR #### [facility] [address] [place] [address] Dr. Mirza Sadler BNPon 03-12-2022 Natriuretic peptide B (Bld) [Mass/Vol] 7452.0 pg/mL Critically high <=900.0 [facility] Comment on above: Performed By: #### C MP, CMADM #### [facility] [address] [place] [address] Dr. Mirza Sadler CBC AUTO DIFFon 03-12-2022 BASO # 0.0 103/ul Normal 0.0-0.1 [facility] Comment on above: Performed By: #### P T, PTT #### [facility] [address] [place] [address] Dr. Mirza Sadler Basophils/100 WBC (Bld) 0.4 % Normal 0.2-2.0 [facility] Comment on above: Performed By: #### P T, PTT #### [facility] [address] [place] [address] Dr. Mirza Sadler EO # 0.0 103/ul Normal 0.0-0.7 [facility] Comment on above: Performed By: #### P T, PTT #### [facility] [address] [place] [address] Dr. Mirza Sadler Eosinophils/100 WBC (Bld) 0.2 % Critically low 0.9-7.0 [facility] Comment on above: Performed By: #### P T, PTT #### [facility] [address] [place] [address] Dr. Mirza Sadler Erythrocyte distribution width (RBC) [Ratio] 14.6 % Normal 11.0-15.0 [facility] Comment on above: Performed By: #### P T, PTT #### [facility] [address] [place] [address] Dr. Mirza Sadler Hematocrit (Bld) [Volume fraction] 37.8 % Critically low 42.0-54.0 [facility] Comment on above: Performed By: #### P T, PTT #### [facility] [address] [place] [address] Dr. Mirza Sadler Hemoglobin (Bld) [Mass/Vol] 12.2 g/dL Critically low 14.0-18.0 [facility] Comment on above: Performed By: #### P T, PTT #### [facility] [address] [place] [address] Dr. Mirza Sadler IG # 0.03 10e3/ul Normal 0.00-0.03 [facility] Comment on above: Performed By: #### P T, PTT #### [facility] [address] [place] [address] Dr. Mirza Sadler IG % 0.3 % Normal 0.0-0.5 [facility] Comment on above: Performed By: #### P T, PTT #### [facility] [address] [place] [address] Dr. Mirza Sadler LYMPH # 1.2 103/ul Normal 1.2-3.8 [facility] Comment on above: Performed By: #### P T, PTT #### [facility] [address] [place] [address] Dr. Mirza Sadler Lymphocytes/100 WBC (Bld) 11.5 % Critically low 20.5-60.0 [facility] Comment on above: Performed By: #### P T, PTT #### [facility] [address] [place] [address] Dr. Mirza Sadler MANUAL DIFF REQ NO Normal [facility] Comment on above: Performed By: #### P T, PTT #### [facility] [address] [place] [address] Dr. Mirza Sadler MCH (RBC) [Entitic mass] 29.0 pg Normal 25.9-34.0 [facility] Comment on above: Performed By: #### P T, PTT #### [facility] [address] [place] [address] Dr. Mirza Sadler MCHC (RBC) [Mass/Vol] 32.3 g/dL Normal 29.9-35.2 [facility] Comment on above: Performed By: #### P T, PTT #### [facility] [address] [place] [address] Dr. Mirza Sadler MCV (RBC) [Entitic vol] 89.8 fL Normal 80.0-94.0 [facility] Comment on above: Performed By: #### P T, PTT #### [facility] [address] [place] [address] Dr. Mirza Sadler MONO # 0.7 103/ul Normal 0.3-0.8 [facility] Comment on above: Performed By: #### P T, PTT #### [facility] [address] [place] [address] Dr. Mirza Sadler Monocytes/100 WBC (Bld) 6.8 % Normal 1.7-12.0 [facility] Comment on above: Performed By: #### P T, PTT #### [facility] [address] [place] [address] Dr. Mirza Sadler NEUT # 8.5 103/ul Critically high 1.4-6.5 [facility] Comment on above: Performed By: #### P T, PTT #### [facility] [address] [address] [address] Mirza Sadler Neutrophils/100 WBC (Bld) 80.8 % Critically high 43.0-75.0 [facility] Comment on above: Performed By: #### P T, PTT #### [facility] [address] [address] [address] Mirza Sadler Platelet mean volume (Bld) [Entitic vol] 9.8 fL Normal 9.5-13.5 [facility] Comment on above: Performed By: #### P T, PTT #### [facility] [address] [address] [address] Mirza Sadler PLT 165 103/ul Normal 150-450 [facility] Comment on above: Performed By: #### P T, PTT #### [facility] [address] [address] [address] Mirza Sadler RBC 4.21 106/ul Critically low 4.70-6.10 [facility] Comment on above: Performed By: #### P T, PTT #### [facility] [address] [address] [address] Mirza Sadler WBC 10.5 103/ul Normal 4.0-11.0 [facility] Comment on above: Performed By: #### P T, PTT #### [facility] [address] [address] [address] Mirza Sadler ECHOCARDIO M/2D COMPLETEon 1 05-13-2021 ECHOCARDIO M/2D COMPLETE Patient: LANI LIZAMA Exam Date: 03/12/2022 : 1950 Gender:M Ordering : DR OBDULIO ALVA . Admission #: [id number] Family : DR HARLEY CRESPO D.O. Order #: [id number] CLICK HERE TO VIEW EXAM ECHOCARDIOGRAM REPORT PROCEDURE: CARDIO PULMONARY ECHOCARDIO M/2D COMP INDICATIONS: Elevated TROP and BNPChest pain, recent NC, CHF, CBAG x 5, PTCA x 7 [...] Foreman M.D. on 03/13/2022 at 17:42 Normal [facility] PROF CHEM 8 (BAS METB)on Anion gap [Moles/Vol] 17.8 mmol/L Normal [facility] Comment on above: Performed By: #### C MP, CMADM #### [facility] [address] [address] [address] Mirza Sadler Calcium [Mass/Vol] 8.6 mg/dL Normal 8.5-10.1 [facility] Comment on above: Performed By: #### C MP, CMADM #### [facility] [address] [address] [address] Mirza Sadler Chloride [Moles/Vol] 103 mmol/L Normal 98-107 [facility] Comment on above: Performed By: #### C MP, CMADM #### [facility] [address] [address] [address] Mirza Sadler CO2 [Moles/Vol] 22.3 mmol/L Normal 21.0-32.0 [facility] Comment on above: Performed By: #### C MP, CMADM #### [facility] [address] [address] [address] Mirza Sadler Creatinine [Mass/Vol] 1.81 mg/dL Critically high 0.70-1.30 [facility] Comment on above: Performed By: #### C MP, CMADM #### [facility] [address] [address] [address] Mirza Sadler EGFR-AF PUERTO RICAN 45 mL/min/1.73m2 Critically low >=60 [facility] Comment on above: Performed By: #### C MP, CMADM #### [facility] [address] [address] [address] Mirza Sadler EGFR-NON AF PUERTO RICAN 37 mL/min/1.73m2 Critically low >=60 [facility] Comment on above: Performed By: #### C TANIA, CMADM #### [facility] [address] [place] [address] Dr. Mirza Sadler Glucose [Mass/Vol] 161 mg/dL Critically high 74-106 T [facility] Comment on above: Performed By: #### C TANIA, CMADM #### [facility] [address] [place] [address] Dr. Mirza Sadler Potassium [Moles/Vol] 4.1 mmol/L Normal 3.5-5.1 [facility] Comment on above: Performed By: #### C TANIA, DOMDM #### [facility] [address] [place] [address] Dr. Mirza Sadler Sodium [Moles/Vol] 139 mmol/L Normal 136-145 [facility] Comment on above: Performed By: #### C TANIA, CMADM #### [facility] [address] [place] [address] Dr. Mirza Sadler Urea nitrogen [Mass/Vol] 28.0 mg/dL Critically high 7.0-18.0 [facility] Comment on above: Performed By: #### C TANIA, DOMDM #### [facility] [address] [place] [address] Dr. Mirza Sadler Urea nitrogen/Creatinine [Mass ratio] 15.5 mg/mg Normal [facility] Comment on above: Performed By: #### C TANIA, CMADM #### [facility] [address] [place] [address] Dr. Mirza Sadler TROPONIN, HIGH SENSITIVITYon 03-12-2022 HSTROP 70958.5 pg/mL Critically high 4.0-76.1 [facility] Comment on above: Result Comment: CUT- OFF POINTS HAVE BEEN ESTABLISHED BASED ON THE FOURTH UNIVERSAL DEFINITIONS OF MYOCARDIAL INFARCTION. THE UPPER REFERENCE LIMIT (URL) OF TROPONIN, DEFINED THE 99TH PERCENTILE OF cTnI DISTRIBUTION IN A REFERENCE POPULATION, HAS BEEN CONFIRMED THE DECISION THRESHOLD FOR NC DIAGNOSIS. Performed By: #### C TANIA, CMADM #### [facility] [address] [place] [address] Dr. Mirza Sadler BNPon 03-11-2022 Natriuretic peptide B (Bld) [Mass/Vol] 1378.0 pg/mL Critically high <=900.0 [facility] Comment on above: Performed By: #### P T, PTT #### [facility] [address] [place] [address] Dr. Mirza Sadler CARDIAC PARUL 3-6on 2 CK [Catalytic activity/Vol] 139 U/L Normal 39-308 [facility] Comment on above: Performed By: #### E RUR #### [facility] [address] [place] [address] Dr. Mirza Sadler CK.MB [Mass/Vol] 7.50 ng/mL Critically high <=3.60 [facility] Comment on above: Performed By: #### E RUR #### [facility] [address] [place] [address] Dr. Mirza Sadler HSTROP 1419.3 pg/mL Critically high 4.0-76.1 [facility] Comment on above: Result Comment: CUT- OFF POINTS HAVE BEEN ESTABLISHED BASED ON THE FOURTH UNIVERSAL DEFINITIONS OF MYOCARDIAL INFARCTION. THE UPPER REFERENCE LIMIT (URL) OF TROPONIN, DEFINED THE 99TH PERCENTILE OF cTnI DISTRIBUTION IN A REFERENCE POPULATION, HAS BEEN CONFIRMED THE DECISION THRESHOLD FOR NC DIAGNOSIS. Performed By: #### E RUR #### [facility] [address] [place] [address] Dr. Mirza Sadler CBC AUTO DIFFon 03-11-2022 BASO # 0.1 103/ul Normal 0.0-0.1 [facility] Comment on above: Performed By: #### E RUR #### [facility] [address] [place] [address] Dr. Mirza Sadler Basophils/100 WBC (Bld) 0.5 % Normal 0.2-2.0 [facility] Comment on above: Performed By: #### E RUR #### [facility] [address] [place] [address] Dr. Mirza Sadler EO # 0.2 103/ul Normal 0.0-0.7 [facility] Comment on above: Performed By: #### E RUR #### [facility] [address] [place] [address] Dr. Mirza Sadler Eosinophils/100 WBC (Bld) 1.3 % Normal 0.9-7.0 [facility] Comment on above: Performed By: #### E RUR #### [facility] [address] [place] [address] Dr. Mirza Sadler Erythrocyte distribution width (RBC) [Ratio] 14.6 % Normal 11.0-15.0 [facility] Comment on above: Performed By: #### E RUR #### [facility] [address] [place] [address] Dr. Mirza Sadler Hematocrit (Bld) [Volume fraction] 43.1 % Normal 42.0-54.0 [facility] Comment on above: Performed By: #### E RUR #### [facility] [address] [place] [address] Dr. Mirza Sadler Hemoglobin (Bld) [Mass/Vol] 14.2 g/dL Normal 14.0-18.0 [facility] Comment on above: Performed By: #### E RUR #### [facility] [address] [place] [address] Dr. Mirza Sadler IG # 0.07 10e3/ul Critically high 0.00-0.03 [facility] Comment on above: Performed By: #### E RUR #### [facility] [address] [place] [address] Dr. Mirza Sadler IG % 0.5 % Normal 0.0-0.5 [facility] Comment on above: Performed By: #### E RUR #### [facility] [address] [place] [address] Dr. Mirza Sadler LYMPH # 1.3 103/ul Normal 1.2-3.8 [facility] Comment on above: Performed By: #### E RUR #### [facility] [address] [place] [address] Dr. Mirza Sadler Lymphocytes/100 WBC (Bld) 8.6 % Critically low 20.5-60.0 [facility] Comment on above: Performed By: #### E RUR #### [facility] [address] [address] [address] Mirza Sadler MANUAL DIFF REQ NO Normal [facility] Comment on above: Performed By: #### E RUR #### [facility] [address] [address] [address] Mirza Sadler MCH (RBC) [Entitic mass] 29.3 pg Normal 25.9-34.0 [facility] Comment on above: Performed By: #### E RUR #### [facility] [address] [place] [address] Dr. Mirza Sadler MCHC (RBC) [Mass/Vol] 32.9 g/dL Normal 29.9-35.2 [facility] [facility] Comment on above: Performed By: #### E RUR #### [facility] [address] [place] [address] Dr. Mirza Sadler MCV (RBC) [Entitic vol] 88.9 fL Normal 80.0-94.0 [facility] Comment on above: Performed By: #### E RUR #### [facility] [address] [place] [address] Dr. Mirza Sadler MONO # 0.7 103/ul Normal 0.3-0.8 [facility] Comment on above: Performed By: #### E RUR #### [facility] [address] [place] [address] Dr. Mirza Sadler Monocytes/100 WBC (Bld) 4.3 % Normal 1.7-12.0 [facility] Comment on above: Performed By: #### E RUR #### [facility] [address] [address] [address] Mirza Sadler NEUT # 12.8 103/ul Critically high 1.4-6.5 [facility] Comment on above: Performed By: #### E RUR #### [facility] [address] [place] [address] Dr. Mirza Sadler Neutrophils/100 WBC (Bld) 84.8 % Critically high 43.0-75.0 [facility] Comment on above: Performed By: #### E RUR #### [facility] [address] [address] [address] Mirza Sadler Platelet mean volume (Bld) [Entitic vol] 9.9 fL Normal 9.5-13.5 [facility] Comment on above: Performed By: #### E RUR #### [facility] [address] [address] [address] Mirza Sadler PLT 201 103/ul Normal 150-450 [facility] Comment on above: Performed By: #### E RUR #### [facility] [address] [address] [address] Mirza Sadler RBC 4.85 106/ul Normal 4.70-6.10 [facility] Comment on above: Performed By: #### E RUR #### [facility] [address] [place] [address] Dr. Mirza Sadler WBC 15.0 103/ul Critically high 4.0-11.0 [facility] Comment on above: Performed By: #### E RUR #### [facility] [address] [place] [address] Dr. Mirza Sadler CULTURE BLOODon 03-11-2022 Microscopic examination of blood, culture Culture Observations: NO GROWTH AT 5 DAYS. Normal [facility] Comment on above: Performed By: #### H STROPN #### [facility] [address] [place] [address] Dr. Mirza Sadler Microscopic examination of blood, culture Culture Observations: NO GROWTH AT 5 DAYS. Normal [facility] Comment on above: Performed By: #### H STROPN #### [facility] [address] [place] [address] Dr. Mirza Sadler Covid-19 PCR ([facility])on 03-01 SARS-CoV-2 (COVID-19) RNA RAMO+probe Ql (Unsp spec) Not detected Normal NOT DETECTED [facility] Comment on above: Result Comment: [...] for this test is supported by the [employer] [place] of Health and Human Service's declaration that [...] By: #### H STROPN #### [facility] [address] [place] [address] Dr. Mirza Sadler ER URINE PROFILEon 2 Bilirubin Ql (U) Negative Normal NEGATIVE [facility] Comment on above: Performed By: #### E RUR #### [facility] [address] [place] [address] Dr. Mirza Sadler Clarity (U) CLEAR Normal CLEAR [facility] Comment on above: Performed By: #### E RUR #### [facility] [address] [place] [address] Dr. Mirza Sadler Color (U) LT. YELLOW Normal YELLOW [facility] Comment on above: Performed By: #### E RUR #### [facility] [address] [place] [address] Dr. Mirza Sadler ERUAHD A micrscopic examina tion will be performed if indicated. Normal [facility] Comment on above: Performed By: #### E RUR #### [facility] [address] [place] [address] Dr. Mirza Sadler Glucose Ql (U) >1000 Abnormal NEGATIVE [facility] Comment on above: Performed By: #### E RUR #### [facility] [address] [place] [address] Dr. Mirza Sadler Hemoglobin Ql (U) Negative Normal NEGATIVE [facility] Comment on above: Performed By: #### E RUR #### [facility] [address] [place] [address] Dr. Mirza Sadler Ketones Ql (U) 15 mg/dl Abnormal NEGATIVE [facility] Comment on above: Performed By: #### E RUR #### [facility] [address] [place] [address] Dr. Mirza Sadler LEUKOCYTES Negative Normal NEGATIVE [facility] Comment on above: Performed By: #### E RUR #### [facility] [address] [place] [address] Dr. Mirza Sadler Nitrite Ql (U) Negative Normal NEGATIVE [facility] Comment on above: Performed By: #### E RUR #### [facility] [address] [place] [address] Dr. Mirza Sadler pH (U) 5.0 [pH] Normal 5-9 [facility] Comment on above: Performed By: #### E RUR #### [facility] [address] [place] [address] Dr. Mirza Sadler SPEC GRAVITY 1.020 Normal 1.005-<=1. 025 [facility] Comment on above: Performed By: #### E RUR #### [facility] [address] [place] [address] Dr. Mirza Sadler UA PROTEIN TRACE Normal NEGATIVE/ TRACE [facility] Comment on above: Performed By: #### E RUR #### [facility] [address] [place] [address] Dr. Mirza Sadler UR MICRO IND NOT INDICATED Normal [facility] Comment on above: Performed By: #### E RUR #### [facility] [address] [place] [address] Dr. Mirza Sadler Urobilinogen Qn (U) 0.2 {Luisito'U}/dL Normal 0.2 - 1. 0 [facility] Comment on above: Performed By: #### E RUR #### [facility] [address] [place] [address] Dr. Mirza Sadler POINT OF CARE GLUCOSEon 12- Glucose [Mass/Vol] 161 mg/dL Critically high 74-106 T [facility] Comment on above: Performed By: #### P T, PTT #### [facility] [address] [address] [address] Mirza Sadler PROF 14(COMP METB)on 022 Albumin [Mass/Vol] 4.3 g/dL Normal 3.4-5.0 [facility] Comment on above: Performed By: #### P T, PTT #### [facility] [address] [address] [address] Mirza Sadler Albumin/Globulin [Mass ratio] 1.1 {ratio} Normal [facility] Comment on above: Performed By: #### P T, PTT #### [facility] [address] [place] [address] Dr. Mirza Sadler ALP [Catalytic activity/Vol] 156 U/L Critically high 46-116 [facility] Comment on above: Performed By: #### P T, PTT #### [facility] [address] [place] [address] Dr. Mirza Sadler ALT [Catalytic activity/Vol] 24 U/L Normal 16-63 [facility] Comment on above: Performed By: #### P T, PTT #### [facility] [address] [place] [address] Dr. Mirza Sadler Anion gap [Moles/Vol] 16.7 mmol/L Normal [facility] Comment on above: Performed By: #### P T, PTT #### [facility] [address] [place] [address] Dr. Mirza Sadler AST [Catalytic activity/Vol] 21 U/L Normal 15-37 [facility] Comment on above: Performed By: #### P T, PTT #### [facility] [address] [place] [address] Dr. Mirza Sadler Bilirubin [Mass/Vol] 1.1 mg/dL Critically high 0.2-1.0 [facility] Comment on above: Performed By: #### P T, PTT #### [facility] [address] [place] [address] Dr. Mirza Sadler Calcium [Mass/Vol] 8.8 mg/dL Normal 8.5-10.1 [facility] Comment on above: Performed By: #### P T, PTT #### [facility] [address] [place] [address] Dr. Mirza Sadler Chloride [Moles/Vol] 105 mmol/L Normal 98-107 [facility] Comment on above: Performed By: #### P T, PTT #### [facility] [address] [place] [address] Dr. Mirza Sadler CO2 [Moles/Vol] 25.0 mmol/L Normal 21.0-32.0 [facility] Comment on above: Performed By: #### P T, PTT #### [facility] [address] [place] [address] Dr. Mirza Sadler Creatinine [Mass/Vol] 1.57 mg/dL Critically high 0.70-1.30 [facility] Comment on above: Performed By: #### P T, PTT #### [facility] [address] [place] [address] Dr. Mirza Sadler EGFR-AF PUERTO RICAN 53 mL/min/1.73m2 Critically low >=60 [facility] Comment on above: Performed By: #### P T, PTT #### [facility] [address] [place] [address] Dr. Mirza Sadler EGFR-NON AF PUERTO RICAN 44 mL/min/1.73m2 Critically low >=60 [facility] Comment on above: Performed By: #### P T, PTT #### [facility] [address] [place] [address] Dr. Mirza Sadler Globulin (S) [Mass/Vol] 3.9 g/dL Normal [facility] Comment on above: Performed By: #### P T, PTT #### [facility] [address] [place] [address] Dr. Mirza Sadler Glucose [Mass/Vol] 188 mg/dL Critically high 74-106 [facility] Comment on above: Performed By: #### P T, PTT #### [facility] [address] [place] [address] Dr. Mirza Sadler Potassium [Moles/Vol] 3.7 mmol/L Normal 3.5-5.1 [facility] Comment on above: Performed By: #### P T, PTT #### [facility] [address] [place] [address] Dr. Mirza Sadler Protein [Mass/Vol] 8.2 g/dL Normal 6.4-8.2 [facility] Comment on above: Performed By: #### P T, PTT #### [facility] [address] [place] [address] Dr. Mirza Sadler Sodium [Moles/Vol] 143 mmol/L Normal 136-145 [facility] Comment on above: Performed By: #### P T, PTT #### [facility] [address] [place] [address] Dr. Mirza Sadler Urea nitrogen [Mass/Vol] 20.0 mg/dL Critically high 7.0-18.0 [facility] Comment on above: Performed By: #### P T, PTT #### [facility] [address] [place] [address] Dr. Mirza Sadler Urea nitrogen/Creatinine [Mass ratio] 12.7 mg/mg Normal [facility] Comment on above: Performed By: #### P T, PTT #### [facility] [address] [place] [address] Dr. Mirza Sadler RESPIRATORY PANEL PLUSon Adenovirus Not detected Normal NOT DETECTED [facility] Comment on above: Performed By: #### P T, PTT #### [facility] [address] [place] [address] Dr. Mirza Ball Parapertusis Not detected Normal NOT DETECTED [facility] Comment on above: Performed By: #### P T, PTT #### [facility] [address] [place] [address] Dr. Mirza Ball Pertussis Not detected Normal NOT DETECTED [facility] Comment on above: Performed By: #### P T, PTT #### [facility] [address] [place] [address] Dr. Mirza Sadler Chlamydia Pneumoniae Not detected Normal NOT DETECTED [facility] Comment on above: Performed By: #### P T, PTT #### [facility] [address] [place] [address] Dr. Mirza Sadler Coronavirus 229E Not detected Normal NOT DETECTED [facility] Comment on above: Performed By: #### P T, PTT #### [facility] [address] [place] [address] Dr. Mirza Sadler Coronavirus HKU1 Not detected Normal NOT DETECTED [facility] Comment on above: Performed By: #### P T, PTT #### [facility] [address] [place] [address] Dr. Mirza Sadler Coronavirus NL63 Not detected Normal NOT DETECTED [facility] Comment on above: Performed By: #### P T, PTT #### [facility] [address] [place] [address] Dr. Mirza Sadler Coronavirus OC43 Not detected Normal NOT DETECTED [facility] Comment on above: Performed By: #### P T, PTT #### [facility] [address] [place] [address] Dr. Mirza Sadler Influenza A H1 2009 Not detected Normal NOT DETECTED [facility] Comment on above: Performed By: #### P T, PTT #### [facility] [address] [place] [address] Dr. Mirza Sadler Influenza A H3 Not detected Normal NOT DETECTED [facility] Comment on above: Performed By: #### P T, PTT #### [facility] [address] [place] [address] Dr. Mirza Sadler Influenza B Not detected Normal NOT DETECTED [facility] Comment on above: Performed By: #### P T, PTT #### [facility] [address] [place] [address] Dr. Mirza Sadler Metapneumovirus Not detected Normal NOT DETECTED [facility] Comment on above: Performed By: #### P T, PTT #### [facility] [address] [place] [address] Dr. Mirza Sadler Mycoplas. Pneumoniae Not detected Normal NOT DETECTED [facility] Comment on above: Performed By: #### P T, PTT #### [facility] [address] [place] [address] Dr. Mirza Sadler Parainfluenza 1 Not detected Normal NOT DETECTED [facility] Comment on above: Performed By: #### P T, PTT #### [facility] [address] [place] [address] Dr. Mirza Sadler Parainfluenza 2 Not detected Normal NOT DETECTED [facility] Comment on above: Performed By: #### P T, PTT #### [facility] [address] [place] [address] Dr. Mirza Sadler Parainfluenza 3 Not detected Normal NOT DETECTED [facility] Comment on above: Performed By: #### P T, PTT #### [facility] [address] [place] [address] Dr. Mirza Sadler Parainfluenpasha 4 Not detected Normal NOT DETECTED [facility] Comment on above: Performed By: #### P T, PTT #### [facility] [address] [place] [address] Dr. Mirza Sadler Rhino/Enterovirus Not detected Normal NOT DETECTED [facility] Comment on above: Performed By: #### P T, PTT #### [facility] [address] [place] [address] Dr. Mirza Sadler RP2 Header 1 RESPIRATORY PANEL: VIRUSES Normal [facility] Comment on above: Performed By: #### P T, PTT #### [facility] [address] [place] [address] Dr. Mirza BURTON Header 2 RESPIRATORY PANEL: BACTERIA Normal [facility] Comment on above: Performed By: #### P T, PTT #### [facility] [address] [place] [address] Dr. Mirza Sadler RSV Not detected Normal NOT DETECTED [facility] Comment on above: Performed By: #### P T, PTT #### [facility] [address] [place] [address] Dr. Mirza Sadler SARS-CoV-2 (COVID-19) RNA RAMO+probe Ql (Unsp spec) Not detected Normal NOT DETECTED [facility] Comment on above: Performed By: #### P T, PTT #### [facility] [address], [place] [address] Dr. Mirza Sadler TROPONIN, HIGH SENSITIVITYon 03-11-2022 HSTROP 12560.8 pg/mL Critically high 4.0-76.1 [facility] Comment on above: Result Comment: CUT- OFF POINTS HAVE BEEN ESTABLISHED BASED ON THE FOURTH UNIVERSAL DEFINITIONS OF MYOCARDIAL INFARCTION. THE UPPER REFERENCE LIMIT (URL) OF TROPONIN, DEFINED THE 99TH PERCENTILE OF cTnI DISTRIBUTION IN A REFERENCE POPULATION, HAS BEEN CONFIRMED THE DECISION THRESHOLD FOR NC DIAGNOSIS. Performed By: #### C MP, CMADM #### [facility] [address], [place] [address] Dr. Mirza Sadler HSTROP 41.0 pg/mL Normal 4.0-76.1 [facility] Comment on above: Result Comment: CUT- OFF POINTS HAVE BEEN ESTABLISHED BASED ON THE FOURTH UNIVERSAL DEFINITIONS OF MYOCARDIAL INFARCTION. THE UPPER REFERENCE LIMIT (URL) OF TROPONIN, DEFINED THE 99TH PERCENTILE OF cTnI DISTRIBUTION IN A REFERENCE POPULATION, HAS BEEN CONFIRMED THE DECISION THRESHOLD FOR NC DIAGNOSIS. Performed By: #### P T, PTT #### [facility] [address], [place] [address] Dr. Mirza Sadler XR CHEST 1 Von [...] Kayden ACEVES Date: 2022-03-11 05:42 Normal [facility] NM MUGAon 03-09-2022 NM MUGA [...] Date: 2022-03-09 12:26 Normal [facility] CT CHEST WO CONon 03-02-2022 [...] by: HIGINIO FLANAGAN Date: 2022-03-02 08:52 Normal [facility] Creatinine and Glomerular fi ltration rate.predicted panel (S/P/Bld)Ordered By: Gagan Shhaid on 01-17-2022 Creatinine [Mass/Vol] 1.53 mg/dL 0.64-1.27 [facility] Estimated glomerular filtrat ion rate (GFR) non- AmericanOrdered By: Gagan Shahid on 01-17-2022 GFR/1.73 sq M.predicted among non-blacks MDRD (S/P/Bld) [Vol rate/Area] 45 mL/Min [facility] Glucose Glucometer (BldC) [M ass/Vol]Ordered By: Gagan Shahid on 01-17-2022 Glucose [Mass/Vol] 178 mg/dL [facility] Comment on above: Random Glucose Refer ence Range is dependent on time and content of last meal. Glucose of more than 200 mg/dL in a nonstressed, ambulatory subject supports the diagnosis of Diabetes Mellitus. No Panel InformationOrdered By: Gagan Shahid on 01-17-2022 Estimated GFR () 55 mL/Min [facility] Comment on above: GFR estimated refere nce range: According to KDOQI guidelines, <60 ml/min/1.73m2 is sufficient to diagnose a patient with chronic kidney disease. Pharmacy Creatinine Clearance (Chem 42.[address] [facility] Serum or plasma anion gap de terminationOrdered By: Gagan Shahid on 01-17-2022 Anion gap [Moles/Vol] 12.0 mmol/L 6.0-15.0 [facility] Serum or plasma calcium radha urement (mass/volume)Ordered By: Gagan Shahid on 01-17-2022 Calcium [Mass/Vol] 9.0 mg/dL 8.2-10.2 [facility] Serum or plasma chloride shanae surement (moles/volume)Ordered By: Gagan Shahid on 01-17-2022 Chloride [Moles/Vol] 107 mmol/L 95-114 [facility] Serum or plasma glucose radha urement (mass/volume)Ordered By: Gagan Shahid on 01-17-2022 Glucose [Mass/Vol] 142 mg/dL 70-100 [facility] Comment on above: ADA recommended refe rence rangeRandom Glucose Reference Range is dependent on time and content of last meal. Glucose of more than 200 mg/dL in a nonstressed, ambulatory subject supports the diagnosis of Diabetes Mellitus. Serum or plasma potassium me asurement (moles/volume)Ordered By: Gagan Shahid on 01-17-2022 Potassium [Moles/Vol] 3.5 mmol/L 3.5-5.1 [facility] Serum or plasma sodium measu rement (moles/volume)Ordered By: Gagan Shahid on 01-17-2022 Sodium [Moles/Vol] 137 mmol/L 136-146 [facility] Serum or plasma total carbon dioxide measurement (moles/volume)Ordered By: Gagan Shahid on 01-17-2022 CO2 [Moles/Vol] 21.5 mmol/L 22.0-30.[address] [facility] Serum or plasma urea nitroge n measurement (mass/volume)Ordered By: Gagan Shahid on 01-17-2022 Urea nitrogen [Mass/Vol] 24 mg/dL 9-[address] [facility] Activated partial thrombopla stin time (aPTT) in platelet poor plasma by coagulation aOrdered By: Gagan Shahid on 01-16-2022 aPTT Coag (PPP) [Time] 42.1 s 25.1-36.[address] [facility] Basophils Auto (Bld) [#/Vol] Ordered By: Gagan Shahid on 01-16-2022 Basophils (Bld) [#/Vol] 0.0 10*3/uL 0.0-0.[address] [facility] Basophils/100 WBC Auto (Bld) Ordered By: Gagan Shahid on 01-16-2022 Basophils/100 WBC (Bld) 0.5 % . [facility] Creatine kinase [Enzymatic a ctivity/volume] in Serum or PlasmaOrdered By: Gagan Shahid on 01-16-2022 CK [Catalytic activity/Vol] 92 U/L 22-[address] [facility] Eosinophils Auto (Bld) [#/Vo l]Ordered By: Gagan Shahid on 01-16-2022 Eosinophils (Bld) [#/Vol] 0.2 10*3/uL 0.0-0.[address] [facility] Eosinophils/100 WBC Auto (Bl d)Ordered By: Gagan Shahid on 01-16-2022 Eosinophils/100 WBC (Bld) 2.4 % . [facility] Erythrocyte distribution wid th Auto (RBC) [Ratio]Ordered By: Gagan Shahid on 01-16-2022 Erythrocyte distribution width (RBC) [Ratio] 14.6 % 12.0-14.[address] [facility] Hematocrit Auto (Bld) [Volum e fraction]Ordered By: Gagan Shahid on 01-16-2022 Hematocrit (Bld) [Volume fraction] 43.4 % 38.8-50.[address] [facility] Hemoglobin [Mass/volume] in BloodOrdered By: Gagan Shahid on 01-16-2022 Hemoglobin (Bld) [Mass/Vol] 14.4 g/dL 13.0-17.[address] [facility] - Chemistry and C hemistry - challengeOrdered By: Gagan Shahid on 01-16-2022 Magnesium [Mass/Vol] 1.9 mg/dL 1.6-2.6 [facility] - CoagulationOrde red By: Gagan Shahid on 01-16-2022 PT Coag (PPP) [Time] 15.7 s 9.0-12.9 [facility] - Hematology and Cell countsOrdered By: Gagan Shahid on 01-16-2022 Nucleated RBC/100 WBC (Bld) [Ratio] 0.1 % 0-0.[address] [facility] Leukocytes [#/volume] in Blo od by Automated countOrdered By: Gagan Shahid on 01-16-2022 WBC (Bld) [#/Vol] 8.2 10*3/uL 4.5-11.0 [facility] Lymphocytes Auto (Bld) [#/Vo l]Ordered By: Gagan Shahid on 01-16-2022 Lymphocytes (Bld) [#/Vol] 1.6 10*3/uL 1.00-4.[address] [facility] Lymphocytes/100 WBC Auto (Bl d)Ordered By: Gagan Shahid on 01-16-2022 Lymphocytes/100 WBC (Bld) 19.5 % . [facility] MCH Auto (RBC) [Entitic mass ]Ordered By: Gagan Shahid on 01-16-2022 MCH (RBC) [Entitic mass] 29.4 pg 27.5-35.[address] [facility] MCHC Auto (RBC) [Mass/Vol]Or dered By: Gagan Shahid on 01-16-2022 MCHC (RBC) [Mass/Vol] 33.2 g/dL 32.5-35.6 [facility] MCV Auto (RBC) [Entitic vol] Ordered By: Gagan Shahid on 01-16-2022 MCV (RBC) [Entitic vol] 88.5 fL 83.5-[address] [facility] Monocytes Auto (Bld) [#/Vol] Ordered By: Gagan Shahid on 01-16-2022 Monocytes (Bld) [#/Vol] 0.8 10*3/uL 0.0-0.[address] [facility] Monocytes/100 WBC Auto (Bld) Ordered By: Gagan Shahid on 01-16-2022 Monocytes/100 WBC (Bld) 9.1 % . [facility] Neutrophils Auto (Bld) [#/Vo l]Ordered By: Gagan Shahid on 01-16-2022 Neutrophils (Bld) [#/Vol] 5.6 10*3/uL 1.8-7.[address] [facility] Neutrophils/100 WBC Auto (Bl d)Ordered By: Gagan Shahid on 01-16-2022 Neutrophils/100 WBC (Bld) 68.5 % . [facility] No Panel InformationOrdered By: Gagan Shahid on 01-16-2022 Bedside Glucose Comment Glu2: cleaned meter [facility] Platelet mean volume Auto (B ld) [Entitic vol]Ordered By: Gagan Shahid on 01-16-2022 Platelet mean volume (Bld) [Entitic vol] 8.4 fL 6.6-10.[address] [facility] Platelet poor plasma interna tional normalized ratio (INR) by coagulation assay (relatOrdered By: Gagan Shahid on 01-16-2022 INR Coag (PPP) [Relative time] 1.4 {INR} [facility] Comment on above: INR Therapeutic Rang [...] 01-16-2022 Platelets (Bld) [#/Vol] 178 10*3/uL 150-[address] [facility] RBC Auto (Bld) [#/Vol]Ordere d By: Gagan Shahid on 01-16-2022 RBC (Bld) [#/Vol] 4.90 10*6/uL 3.90-5.60 [facility] Serum or plasma creatine kin ase MB (CKMB)/total creatine kinase (CK) ratio by calculaOrdered By: Gagan Shahid on 01-16-2022 CK.MB Calc [Catalytic fraction] 3.2 % 0.00-2.[address] [facility] Serum or plasma creatine kin ase MB measurement (mass/volume)Ordered By: Gagan Shahid on 01-16-2022 CK.MB [Mass/Vol] 3.0 ng/mL 0.6-6.[address] [facility] Troponin I.cardiac [Mass/vol ume] in Serum or Plasma by High sensitivity methodOrdered By: Gagan Shahid on 01-16-2022 Troponin I.cardiac High sensitivity method [Mass/Vol] 525 pg/mL 0-[address] [facility] Comment on above: Critical valueresult calledat 1844 on 01/16/22 BNPon 01-15-2022 Natriuretic peptide B (Bld) [Mass/Vol] 1012.0 pg/mL Critically high <=900.0 [facility] Comment on above: Performed By: #### B ASSISTANT WAREHOUSE MANAGER #### [facility] [address] [address] [address] Mirza Sadler CARDIAC PARUL ADMITon 022 CK [Catalytic activity/Vol] 93 U/L Normal 39-308 [facility] Comment on above: Performed By: #### C MP, CMADM #### [facility] [address] [address] [address] Mirza Sadler CK.MB [Mass/Vol] 1.67 ng/mL Normal <=3.60 [facility] Comment on above: Performed By: #### C TEGAN MARIN #### [facility] [address] [place] [address] Dr. Mirza Sadler HSTROP 17.1 pg/mL Normal 4.0-76.1 [facility] Comment on above: Result Comment: CUT- OFF POINTS HAVE BEEN ESTABLISHED BASED ON THE FOURTH UNIVERSAL DEFINITIONS OF MYOCARDIAL INFARCTION. THE UPPER REFERENCE LIMIT (URL) OF TROPONIN, DEFINED THE 99TH PERCENTILE OF cTnI DISTRIBUTION IN A REFERENCE POPULATION, HAS BEEN CONFIRMED THE DECISION THRESHOLD FOR [place] DIAGNOSIS. Performed By: #### C TEGAN MARIN #### [facility] [address] [place] [address] Dr. Mirza Sadler RACHEL 63 ng/mL Normal 16-96 [facility] Comment on above: Performed By: #### C TEGAN MARIN #### [facility] [address] [place] [address] Dr. Mirza Sadler CBC AUTO DIFFon 01-15-2022 BASO # 0.1 103/ul Normal 0.0-0.1 [facility] Comment on above: Performed By: #### E RUR #### [facility] [address] [place] [address] Dr. Mirza Sadler Basophils/100 WBC (Bld) 0.9 % Normal 0.2-2.0 [facility] Comment on above: Performed By: #### E RUR #### [facility] [address] [place] [address] Dr. Mirza Sadler EO # 0.3 103/ul Normal 0.0-0.7 [facility] Comment on above: Performed By: #### E RUR #### [facility] [address] [place] [address] Dr. Mirza Sadler Eosinophils/100 WBC (Bld) 3.1 % Normal 0.9-7.0 [facility] Comment on above: Performed By: #### E RUR #### [facility] [address] [place] [address] Dr. Mirza Sadler Erythrocyte distribution width (RBC) [Ratio] 14.2 % Normal 11.0-15.0 [facility] Comment on above: Performed By: #### E RUR #### [facility] [address] [place] [address] Dr. Mirza Sadler Hematocrit (Bld) [Volume fraction] 44.4 % Normal 42.0-54.0 [facility] Comment on above: Performed By: #### E RUR #### [facility] [address] [place] [address] Dr. Mirza Sadler Hemoglobin (Bld) [Mass/Vol] 14.4 g/dL Normal 14.0-18.0 [facility] Comment on above: Performed By: #### E RUR #### [facility] [address] [place] [address] Dr. Mirza Sadler IG # 0.03 10e3/ul Normal 0.00-0.03 [facility] Comment on above: Performed By: #### E RUR #### [facility] [address] [place] [address] Dr. Mirza Sadler IG % 0.3 % Normal 0.0-0.5 [facility] Comment on above: Performed By: #### E RUR #### [facility] [address] [place] [address] Dr. Mirza Sadler LYMPH # 1.6 103/ul Normal 1.2-3.8 [facility] Comment on above: Performed By: #### E RUR #### [facility] [address] [place] [address] Dr. Mirza Sadler Lymphocytes/100 WBC (Bld) 16.8 % Critically low 20.5-60.0 [facility] Comment on above: Performed By: #### E RUR #### [facility] [address] [place] [address] Dr. Mirza Sadler MANUAL DIFF REQ NO Normal [facility] Comment on above: Performed By: #### E RUR #### [facility] [address] [place] [address] Dr. Mirza Sadler MCH (RBC) [Entitic mass] 29.4 pg Normal 25.9-34.0 [facility] Comment on above: Performed By: #### E RUR #### [facility] [address] [place] [address] Dr. Mirza Sadler MCHC (RBC) [Mass/Vol] 32.4 g/dL Normal 29.9-35.2 [facility] Comment on above: Performed By: #### E RUR #### [facility] [address] [place] [address] Dr. Mirza Sadler MCV (RBC) [Entitic vol] 90.6 fL Normal 80.0-94.0 [facility] Comment on above: Performed By: #### E RUR #### [facility] [address] [place] [address] Dr. Mirza Sadler MONO # 0.5 103/ul Normal 0.3-0.8 [facility] Comment on above: Performed By: #### E RUR #### [facility] [address] [place] [address] Dr. Mirza Sadler Monocytes/100 WBC (Bld) 5.9 % Normal 1.7-12.0 [facility] Comment on above: Performed By: #### E RUR #### [facility] [address] [place] [address] Dr. Mirza Sadler NEUT # 6.7 103/ul Critically high 1.4-6.5 [facility] Comment on above: Performed By: #### E RUR #### [facility] [address] [place] [address] Dr. Mirza Sadler Neutrophils/100 WBC (Bld) 73.0 % Normal 43.0-75.0 [facility] Comment on above: Performed By: #### E RUR #### [facility] [address] [place] [address] Dr. Mirza Sadler Platelet mean volume (Bld) [Entitic vol] 10.0 fL Normal 9.5-13.5 [facility] Comment on above: Performed By: #### E RUR #### [facility] [address] [place] [address] Dr. Mirza Sadler PLT 190 103/ul Normal 150-450 [facility] Comment on above: Performed By: #### E RUR #### [facility] [address] [address] [address] Mirza Sadler RBC 4.90 106/ul Normal 4.70-6.10 [facility] Comment on above: Performed By: #### E RUR #### [facility] [id number] Mirza Sadler WBC 9.2 103/ul Normal 4.0-11.0 [facility] Comment on above: Performed By: #### E RUR #### [facility] [id number] Mirza Sadler CT CHEST WO CONon [...] Date: 2022-01-15 08:19 Normal [facility] CULTURE BLOODon 01-15-2022 Microscopic examination of blood, culture Culture Observations: NO GROWTH AT 5 DAYS. Normal [facility] Comment on above: Performed By: #### H STROPN #### [facility] [address] [address] [address] Mirza Sadler Microscopic examination of blood, culture Culture Observations: NO GROWTH AT 5 DAYS. Normal [facility] Comment on above: Performed By: #### B [id number] #### [facility] [address] [address] [address] Mirza Sadler Covid-19 PCR (CVDTB)on 12-30 SARS-CoV-2 (COVID-19) RNA RAMO+probe Ql (Unsp spec) Not detected Normal NOT DETECTED [facility] Comment on above: Result Comment: [...] for this test is supported by the [employer] [place] of [employer] and Human Service's declaration that [...] longer be used). Performed By: #### B ASSISTANT WAREHOUSE MANAGER #### [facility] [address] [address] [address] Mirza Sadler ER URINE PROFILEon 2 Bilirubin Ql (U) Negative Normal NEGATIVE [facility] Comment on above: Performed By: #### C MP, CMADM #### [facility] [address] [address] [address] Mirza Sadler Clarity (U) CLEAR Normal CLEAR [facility] Comment on above: Performed By: #### C MP, CMADM #### [facility] [address] [address] [address] Mirza Sadler Color (U) LT. YELLOW Normal YELLOW [facility] Comment on above: Performed By: #### C MP, CMADM #### [facility] [address] [place] [address] Dr. Mirza Sadler ERUVICKY A micrscopic examina tion will be performed if indicated. Normal [facility] Comment on above: Performed By: #### C MP, CMADM #### [facility] [address] [place] [address] Dr. Mirza Sadler Glucose Ql (U) >1000 Abnormal NEGATIVE [facility] Comment on above: Performed By: #### C MP, CMADM #### [facility] [address] [place] [address] Dr. Mirza Sadler Hemoglobin Ql (U) Negative Normal NEGATIVE [facility] Comment on above: Performed By: #### C MP, CMADM #### [facility] [address] [place] [address] Dr. Mirza Sadler Ketones Ql (U) TRACE Abnormal NEGATIVE [facility] Comment on above: Performed By: #### C MP, CMADM #### [facility] [address] [address] [address] Mirza Sadler LEUKOCYTES Negative Normal NEGATIVE [facility] Comment on above: Performed By: #### C MP, CMADM #### [facility] [address] [address] [address] Mirza Sadler Nitrite Ql (U) Negative Normal NEGATIVE [facility] Comment on above: Performed By: #### C MP, CMADM #### [facility] [address] [place] [address] Dr. Mirza Sadler pH (U) 5.5 [pH] Normal 5-9 [facility] Comment on above: Performed By: #### C DOM MARINDM #### [facility] [address] [place] [address] Dr. Mirza Sadler SPEC GRAVITY 1.020 Normal 1.005-<=1. 025 [facility] Comment on above: Performed By: #### C TANIA, CMADM #### [facility] [address] [place] [address] Dr. Mirza Sadler UA PROTEIN TRACE Normal NEGATIVE/ TRACE [facility] Comment on above: Performed By: #### C TANIA, CMADM #### [facility] [address] [place] [address] Dr. Mirza Sadler UR MICRO IND NOT INDICATED Normal [facility] Comment on above: Performed By: #### C TANIA, CMADM #### [facility] [address] [place] [address] Dr. Mirza Sadler Urobilinogen Qn (U) 0.2 {Luisito'U}/dL Normal 0.2 - 1. 0 [facility] Comment on above: Performed By: #### C DOM MARINDM #### [facility] [address] [place] [address] Dr. Mirza Sadler LACTATE/LACTIC ACIDon 2021 Lactate [Moles/Vol] 0.8 mmol/L Normal 0.4-1.9 [facility] Comment on above: Performed By: #### P T, PTT #### [facility] [address] [place] [address] Dr. Mirza Sadler PROF 14(COMP METB)on 022 Albumin [Mass/Vol] 4.4 g/dL Normal 3.4-5.0 [facility] Comment on above: Performed By: #### C DOM MARINDM #### [facility] [address] [place] [address] Dr. Mirza Sadler Albumin/Globulin [Mass ratio] 1.3 {ratio} Normal [facility] Comment on above: Performed By: #### C TANIA, CMADM #### [facility] [address] [address] [address] Mirza Sadler ALP [Catalytic activity/Vol] 155 U/L Critically high 46-116 [facility] Comment on above: Performed By: #### C TANIA, CMADM #### [facility] [address] [address] [address] Mirza Sadler ALT [Catalytic activity/Vol] 27 U/L Normal 16-63 [facility] Comment on above: Performed By: #### C TANIA, CMADM #### [facility] [address] [address] [address] Mirza Sadler Anion gap [Moles/Vol] 14.9 mmol/L Normal [facility] Comment on above: Performed By: #### C TANIA, CMADM #### [facility] [address] [address] [address] Mirza Sadler AST [Catalytic activity/Vol] 22 U/L Normal 15-37 [facility] Comment on above: Performed By: #### C TANIA, CMADM #### [facility] [address] [address] [address] Mirza Sadler Bilirubin [Mass/Vol] 0.8 mg/dL Normal 0.2-1.0 [facility] Comment on above: Performed By: #### C TANIA, CMADM #### [facility] [address] [address] [address] Mirza Sadler Calcium [Mass/Vol] 8.8 mg/dL Normal 8.5-10.1 [facility] Comment on above: Performed By: #### C TANIA, CMADM #### [facility] [address] [address] [address] Mirza Sadler Chloride [Moles/Vol] 106 mmol/L Normal 98-107 [facility] Comment on above: Performed By: #### C TANIA, CMADM #### [facility] [address] [address] [address] Mirza Sadler CO2 [Moles/Vol] 23.9 mmol/L Normal 21.0-32.0 [facility] Comment on above: Performed By: #### C TANIA, CMADM #### [facility] [address] [address] [address] Mirza Sadler Creatinine [Mass/Vol] 1.51 mg/dL Critically high 0.70-1.30 [facility] Comment on above: Performed By: #### C MP, CMADM #### [facility] [address] [address] [address] Mirza Sadler EGFR-AF PUERTO RICAN 56 mL/min/1.73m2 Critically low >=60 [facility] Comment on above: Performed By: #### C MP, CMADM #### [facility] [address] [address] [address] Mirza Sadler EGFR-NON AF PUERTO RICAN 46 mL/min/1.73m2 Critically low >=60 [facility] Comment on above: Performed By: #### C MP, CMADM #### [facility] [address] [address] [address] Mirza Sadler Globulin (S) [Mass/Vol] 3.4 g/dL Normal [facility] Comment on above: Performed By: #### C MP, CMADM #### [facility] [address] [address] [address] Mirza Sadler Glucose [Mass/Vol] 189 mg/dL Critically high 74-106 [facility] Comment on above: Performed By: #### C MP, CMADM #### [facility] [address] [address] [address] Mirza Sadler Potassium [Moles/Vol] 3.8 mmol/L Normal 3.5-5.1 [facility] Comment on above: Performed By: #### C MP, CMADM #### [facility] [address] [address] [address] Mirza Sadler Protein [Mass/Vol] 7.8 g/dL Normal 6.4-8.2 [facility] Comment on above: Performed By: #### C MP, CMADM #### [facility] [address] [address] [address] Mirza Sadler Sodium [Moles/Vol] 141 mmol/L Normal 136-145 [facility] Comment on above: Performed By: #### C TANIA, CMADM #### [facility] [address] [address] [address] Mirza Sadler Urea nitrogen [Mass/Vol] 22.0 mg/dL Critically high 7.0-18.0 [facility] Comment on above: Performed By: #### C TANIA, CMADM #### [facility] [address] [address] [address] Mirza Sadler Urea nitrogen/Creatinine [Mass ratio] 14.6 mg/mg Normal [facility] Comment on above: Performed By: #### C TANIA, CMADM #### [facility] [address] [address] [address] Mirza Sadler PROTIMEon 01-15-2022 INR Coag (PPP) [Relative time] 1.10 {INR} Normal [facility] Comment on above: Performed By: #### E RUR #### [facility] [address] [place] [address] Dr. Mirza Sadler INR GUIDELINES SEE BELOW Normal [facility] Comment on above: Result Comment: RIVKA RED INR: 2.0 - 3.0 CONDITIONS NOT LISTED BELOW 2.5 - 3.5 FOR PROSTHETIC HEART VALVE REPLACEMENT 2.5 - 3.5 RECURRENT THROMBOSIS Performed By: #### E RUR #### [facility] [address] [place] [address] Dr. Mirza Sadler PT Coag (PPP) [Time] 11.8 s Critically high 9.0-11.6 [facility] Comment on above: Performed By: #### E RUR #### [facility] [address] [place] [address] Dr. Mirza Sadler PTTon 01-15-2022 aPTT Coag (Bld) [Time] 29.0 s Normal 22.3-36.2 [facility] Comment on above: Performed By: #### E RUR #### [facility] [address] [place] [address] Dr. Mirza Sadler TROPONIN, HIGH SENSITIVITYon 01-15-2022 HSTROP 1786.2 pg/mL Critically high 4.0-76.1 [facility] Comment on above: Result Comment: CUT- OFF POINTS HAVE BEEN ESTABLISHED BASED ON THE FOURTH UNIVERSAL DEFINITIONS OF MYOCARDIAL INFARCTION. THE UPPER REFERENCE LIMIT (URL) OF TROPONIN, DEFINED THE 99TH PERCENTILE OF cTnI DISTRIBUTION IN A REFERENCE POPULATION, HAS BEEN CONFIRMED THE DECISION THRESHOLD FOR [place] DIAGNOSIS. Performed By: #### H STROPN #### [facility] [address] [address] [address] Mirza Sadler HSTROP 669.3 pg/mL Critically high 4.0-76.1 [facility] Comment on above: Result Comment: CUT- OFF POINTS HAVE BEEN ESTABLISHED BASED ON THE FOURTH UNIVERSAL DEFINITIONS OF MYOCARDIAL INFARCTION. THE UPPER REFERENCE LIMIT (URL) OF TROPONIN, DEFINED THE 99TH PERCENTILE OF cTnI DISTRIBUTION IN A REFERENCE POPULATION, HAS BEEN CONFIRMED THE DECISION THRESHOLD FOR NC DIAGNOSIS. Performed By: #### H STROPN #### [facility] [address] [address] [address] Mirza Sadler XR CHEST 1 Von [...] by: WAYNE CASEY Date: 2022-01-15 06:42 Normal [facility] A1C HEMOGLOBINon 12-18-2021 HbA1c (Bld) [Mass fraction] 6.2 % [facility] Other Glucose - FINGER STICKon Glucose [Mass/Vol] 120 mg/dL [facility] Other HbA1c (Bld) [Mass fraction]o n 12-18-2021 A1C HEMOGLOBIN [facility] Other XR CHEST 2 Von 12-08-2021 XR [...] by: HIGINIO FLANAGAN Date: 2021-12-08 16:07 Normal [facility] PTH INTACTon 12-01-2021 PTH, Intact 15 pg/mL Normal 15-65 [facility] Comment on above: Performed By: #### C MP, CMADM #### [facility] [address] [address] [address] Mirza Sadler VIT D 25-OH LABCORPon 2021 Vitamin D, 25-Hydroxy 41.2 ng/mL Normal 30.0-100.0 [facility] Comment on above: Result Comment: [place] min D deficiency has been defined by the [place] [employer] and an Endocrine Society practice guideline as a level of serum 25-OH vitamin D less than 20 ng/mL (1,2). The Endocrine Society went on to further define vitamin D insufficiency as a level between 21 and 29 ng/mL (2). 1. IOM ([place] [employer]). 2010. Dietary reference intakes for calcium and D. [place]: The National Academies Press. 2. Noemy MF, Sonam [place], Jake HERMOSILLO, et al. Evaluation, treatment, and prevention of vitamin D deficiency: an Endocrine Society clinical practice guideline. JCEM. 2010; 96(7):1911-30. Performed By: #### P T, PTT #### [facility] [address] [address] [address] Mirza Sadler HEMOGRAM AND PLATELon 2021 Hematocrit (Bld) [Volume fraction] 39.9 % Critically low 42.0-54.0 [facility] Comment on above: Performed By: #### P T, PTT #### [facility] [address] [place] [address] Dr. Mirza Sadler Hemoglobin (Bld) [Mass/Vol] 13.1 g/dL Critically low 14.0-18.0 [facility] Comment on above: Performed By: #### P T, PTT #### [facility] [address] [place] [address] Dr. Mirza Sadler MCH (RBC) [Entitic mass] 29.5 pg Normal 25.9-34.0 [facility] Comment on above: Performed By: #### P T, PTT #### [facility] [address] [place] [address] Dr. Mirza Sadler MCHC (RBC) [Mass/Vol] 32.8 g/dL Normal 29.9-35.2 [facility] Comment on above: Performed By: #### P T, PTT #### [facility] [address] [place] [address] Dr. Mirza Sadler MCV (RBC) [Entitic vol] 89.9 fL Normal 80.0-94.0 [facility] Comment on above: Performed By: #### P T, PTT #### [facility] [address] [place] [address] Dr. Mirza Sadler PLT 182 103/ul Normal 150-450 [facility] Comment on above: Performed By: #### P T, PTT #### [facility] [address] [place] [address] Dr. Mirza Sadler RBC 4.44 106/ul Critically low 4.70-6.10 [facility] Comment on above: Performed By: #### P T, PTT #### [facility] [address] [place] [address] Dr. Mirza Sadler WBC 6.9 103/ul Normal 4.0-11.0 [facility] Comment on above: Performed By: #### P T, PTT #### [facility] [address] [place] [address] Dr. Mirza Sadler MAGNESIUMon 11-30-2021 Magnesium [Mass/Vol] 1.8 mg/dL Normal 1.8-2.4 [facility] Comment on above: Performed By: #### P T, PTT #### [facility] [address] [address] [address] Mirza Sadler RENAL FUNCTION PANELon 11-30 Albumin [Mass/Vol] 3.9 g/dL Normal 3.4-5.0 [facility] Comment on above: Performed By: #### P T, PTT #### [facility] [address] [place] [address] Dr. Mirza Sadler Calcium [Mass/Vol] 9.0 mg/dL Normal 8.5-10.1 [facility] Comment on above: Performed By: #### P T, PTT #### [facility] [address] [place] [address] Dr. Mirza Sadler Chloride [Moles/Vol] 107 mmol/L Normal 98-107 [facility] Comment on above: Performed By: #### P T, PTT #### [facility] [address] [place] [address] Dr. Mirza Sadler CO2 [Moles/Vol] 26.2 mmol/L Normal 21.0-32.0 [facility] Comment on above: Performed By: #### P T, PTT #### [facility] [address] [place] [address] Dr. Mizra Sadler Creatinine [Mass/Vol] 1.55 mg/dL Critically high 0.70-1.30 [facility] Comment on above: Performed By: #### P T, PTT #### [facility] [address] [place] [address] Dr. Mirza Sadler EGFR-AF PUERTO RICAN 54 mL/min/1.73m2 Critically low >=60 [facility] Comment on above: Performed By: #### P T, PTT #### [facility] [address] [place] [address] Dr. Mirza Sadler EGFR-NON AF PUERTO RICAN 45 mL/min/1.73m2 Critically low >=60 [facility] Comment on above: Performed By: #### P T, PTT #### [facility] [address] [address] [address] Mirza Sadler Glucose [Mass/Vol] 166 mg/dL Critically high 74-106 [facility] Comment on above: Performed By: #### P T, PTT #### [facility] [address] [address] [address] Mirza Sadler Phosphate [Mass/Vol] 3.7 mg/dL Normal 2.6-4.7 [facility] Comment on above: Performed By: #### P T, PTT #### [facility] [address] [address] [address] Mirza Sadler Potassium [Moles/Vol] 4.2 mmol/L Normal 3.5-5.1 [facility] Comment on above: Performed By: #### P T, PTT #### [facility] [address] [place] [address] Dr. Mirza Sadler Sodium [Moles/Vol] 142 mmol/L Normal 136-145 [facility] Comment on above: Performed By: #### P T, PTT #### [facility] [address] [place] [address] Dr. Mirza Sadler Urea nitrogen [Mass/Vol] 16.0 mg/dL Normal 7.0-18.0 [facility] Comment on above: Performed By: #### P T, PTT #### [facility] [address] [place] [address] Dr. Mirza Sadler UA RANDOM W/MICROSCOPICon BACTERIA NONE SEEN Normal NONE SEEN [facility] Comment on above: Performed By: #### B LDCX2 #### [facility] [address] [place] [address] Dr. Mirza Sadler Bilirubin Ql (U) Negative Normal NEGATIVE [facility] Comment on above: Performed By: #### B LDCX2 #### [facility] [address] [place] [address] Dr. Mirza Sadler CAST NONE SEEN Normal NONE SEEN [facility] Comment on above: Performed By: #### B LDCX2 #### [facility] [address] [place] [address] Dr. Mirza Sadler Clarity (U) CLEAR Normal CLEAR [facility] Comment on above: Performed By: #### B LDCX2 #### [facility] [address] [place] [address] Dr. Mirza Sadler Color (U) LT. YELLOW Normal YELLOW [facility] Comment on above: Performed By: #### B LDCX2 #### [facility] [address] [place] [address] Dr. Mirza Sadler Crystals LM Nom (Urine sed) NONE SEEN Normal NONE SEEN [facility] Comment on above: Performed By: #### B LDCX2 #### [facility] [address] [place] [address] Dr. Mirza Sadler Epithelial cells LM Ql (Urine sed) RARE Normal NONE SEEN /RARE [facility] Comment on above: Performed By: #### B LDCX2 #### [facility] [address] [place] [address] Dr. Mirza Sadler Glucose Ql (U) >1000 Abnormal NEGATIVE [facility] Comment on above: Performed By: #### B LDCX2 #### [facility] [address] [place] [address] Dr. Mirza Sadler Hemoglobin Ql (U) Negative Normal NEGATIVE [facility] Comment on above: Performed By: #### B LDCX2 #### [facility] [address] [place] [address] Dr. Mirza Sadler Ketones Ql (U) Negative Normal NEGATIVE [facility] Comment on above: Performed By: #### B LDCX2 #### [facility] [address] [place] [address] Dr. Mirza Sadler LEUKOCYTES Negative Normal NEGATIVE [facility] Comment on above: Performed By: #### B LDCX2 #### [facility] [address] [place] [address] Dr. Mirza Sadler MUCOUS NONE SEEN Normal NONE SEEN [facility] Comment on above: Performed By: #### B LDCX2 #### [facility] [address] [place] [address] Dr. Mirza Sadler Nitrite Ql (U) Negative Normal NEGATIVE [facility] Comment on above: Performed By: #### B LDCX2 #### [facility] [address] [place] [address] Dr. Mirza Sadler pH (U) 5.5 [pH] Normal 5-9 [facility] Comment on above: Performed By: #### B LDCX2 #### [facility] [address] [place] [address] Dr. Mirza Sadler RBC NONE SEEN Abnormal 0-2 [facility] Comment on above: Performed By: #### B LDCX2 #### [facility] [address] [place] [address] Dr. iMrza Sadler SPEC GRAVITY 1.015 Normal 1.005-<=1. 025 [facility] Comment on above: Performed By: #### B LDCX2 #### [facility] [address] [place] [address] Dr. Mirza Sadler UA PROTEIN Negative Normal NEGATIVE/ TRACE [facility] Comment on above: Performed By: #### B LDCX2 #### [facility] [address] [place] [address] Dr. Mirza Sadler Urobilinogen Qn (U) 0.2 {Luisito'U}/dL Normal 0.2 - 1. 0 [facility] Comment on above: Performed By: #### B LDCX2 #### [facility] [address] [place] [address] Dr. Mirza Sadler WBC NONE SEEN Normal NONE SEEN [facility] Comment on above: Performed By: #### B LDCX2 #### [facility] [address] [place] [address] Dr. Mirza Sadler URINE T PROTEIN CREAT RATIOo n 11-30-2021 Protein (U) [Mass/Vol] 22.4 mg/dL Critically high <=12.0 [facility] Comment on above: Performed By: #### U RTPCR #### [facility] [address] [place] [address] Dr. Mirza Sadler UR PROT CREAT RAT 0.31 Normal [facility] Comment on above: Performed By: #### U RTPCR #### [facility] [address] [address] [address] Mirza Sadler URINE CREAT 73.05 mg/dL Normal 20.00-300. 00 [facility] Comment on above: Performed By: #### U RTPCR #### [facility] [address] [address] [address] Mirza Sadler NM HEPATOBILIARY SCAN W [...] Date: 2021-11-24 11:55 Normal [facility] BNPon 10-27-2021 Natriuretic peptide B (Bld) [Mass/Vol] 574.0 pg/mL Normal <=900.0 [facility] Comment on above: Performed By: #### P T, PTT #### [facility] [address] [address] [address] Miraz Sadler CARDIAC PARUL ADMITon 022 CK [Catalytic activity/Vol] 70 U/L Normal 39-308 [facility] Comment on above: Performed By: #### P T, PTT #### [facility] [address] [place], [place] [address] Dr. Mirza Sadler CK.MB [Mass/Vol] 1.10 ng/mL Normal <=3.60 [facility] Comment on above: Performed By: #### P T, PTT #### [facility] [address] [place] [address] Dr. Mirza Sadler HSTROP 22.3 pg/mL Normal 4.0-76.1 [facility] Comment on above: Result Comment: CUT- OFF POINTS HAVE BEEN ESTABLISHED BASED ON THE FOURTH UNIVERSAL DEFINITIONS OF MYOCARDIAL INFARCTION. THE UPPER REFERENCE LIMIT (URL) OF TROPONIN, DEFINED THE 99TH PERCENTILE OF cTnI DISTRIBUTION IN A REFERENCE POPULATION, HAS BEEN CONFIRMED THE DECISION THRESHOLD FOR NC DIAGNOSIS. Performed By: #### P T, PTT #### [facility] [address] [place] [address] Dr. Mirza Sadler RACHEL 81 ng/mL Normal 16-96 [facility] Comment on above: Performed By: #### P T, PTT #### [facility] [address] [place] [address] Dr. Mirza Sadler CBC AUTO DIFFon 10-27-2021 BASO # 0.1 103/ul Normal 0.0-0.1 [facility] Comment on above: Performed By: #### E RUR #### [facility] [address] [place] [address] Dr. Mirza Sadler Basophils/100 WBC (Bld) 0.4 % Normal 0.2-2.0 [facility] Comment on above: Performed By: #### E RUR #### [facility] [address] [place] [address] Dr. Mirza Sadler EO # 0.1 103/ul Normal 0.0-0.7 [facility] Comment on above: Performed By: #### E RUR #### [facility] [address] [place] [address] Dr. Mirza Sadler Eosinophils/100 WBC (Bld) 0.4 % Critically low 0.9-7.0 [facility] Comment on above: Performed By: #### E RUR #### [facility] [address] [place] [address] Dr. Mirza Sadler Erythrocyte distribution width (RBC) [Ratio] 14.1 % Normal 11.0-15.0 [facility] Comment on above: Performed By: #### E RUR #### [facility] [address] [address] [address] Mirza Sadler Hematocrit (Bld) [Volume fraction] 41.0 % Critically low 42.0-54.0 [facility] Comment on above: Performed By: #### E RUR #### [facility] [address] [place] [address] Dr. Mirza Sadler Hemoglobin (Bld) [Mass/Vol] 14.1 g/dL Normal 14.0-18.0 [facility] Comment on above: Performed By: #### E RUR #### [facility] [address] [place] [address] Dr. Mirza Sadler IG # 0.05 10e3/ul Critically high 0.00-0.03 [facility] Comment on above: Performed By: #### E RUR #### [facility] [address] [place] [address] Dr. Mirza Sadler IG % 0.4 % Normal 0.0-0.5 [facility] Comment on above: Performed By: #### E RUR #### [facility] [address] [place] [address] Dr. Mirza Sadler LYMPH # 0.9 103/ul Critically low 1.2-3.8 [facility] Comment on above: Performed By: #### E RUR #### [facility] [address] [place] [address] Dr. Mirza Sadler Lymphocytes/100 WBC (Bld) 6.6 % Critically low 20.5-60.0 [facility] Comment on above: Performed By: #### E RUR #### [facility] [address] [place] [address] Dr. Mirza Sadler MANUAL DIFF REQ NO Normal [facility] Comment on above: Performed By: #### E RUR #### [facility] [address] [place] [address] Dr. Mirza Sadler MCH (RBC) [Entitic mass] 29.7 pg Normal 25.9-34.0 [facility] Comment on above: Performed By: #### E RUR #### [facility] [address] [address] [address] Mirza Sadler MCHC (RBC) [Mass/Vol] 34.4 g/dL Normal 29.9-35.2 [facility] Comment on above: Performed By: #### E RUR #### [facility] [address] [place] [address] Dr. Mirza Sadler MCV (RBC) [Entitic vol] 86.3 fL Normal 80.0-94.0 [facility] Comment on above: Performed By: #### E RUR #### [facility] [address] [place] [address] Dr. Mirza Sadler MONO # 0.4 103/ul Normal 0.3-0.8 [facility] Comment on above: Performed By: #### E RUR #### [facility] [address] [place] [address] Dr. Mirza Sadler Monocytes/100 WBC (Bld) 2.6 % Normal 1.7-12.0 [facility] Comment on above: Performed By: #### E RUR #### [facility] [address] [place] [address] Dr. Mirza Sadler NEUT # 12.2 103/ul Critically high 1.4-6.5 [facility] Comment on above: Performed By: #### E RUR #### [facility] [address] [place] [address] Dr. Mirza Sadler Neutrophils/100 WBC (Bld) 89.6 % Critically high 43.0-75.0 [facility] Comment on above: Performed By: #### E RUR #### [facility] [address] [place] [address] Dr. Mirza Sadler Platelet mean volume (Bld) [Entitic vol] 9.7 fL Normal 9.5-13.5 [facility] Comment on above: Performed By: #### E RUR #### [facility] [address] [place] [address] Dr. Mirza Sadler PLT 183 103/ul Normal 150-450 [facility] Comment on above: Performed By: #### E RUR #### [facility] [address] [place] [address] Dr. Mirza Sadler RBC 4.75 106/ul Normal 4.70-6.10 [facility] Comment on above: Performed By: #### E RUR #### [facility] [address] [place] [address] Dr. Mirza Sadler WBC 13.7 103/ul Critically high 4.0-11.0 [facility] Comment on above: Performed By: #### E RUR #### [facility] [address] [place] [address] Dr. Mirza Sadler CULTURE BLOODon 10-27-2021 Microscopic examination of blood, culture Culture Observations: NO GROWTH AT 5 DAYS. Normal [facility] Comment on above: Performed By: #### B LDCX2 #### [facility] [address] [place] [address] Dr. Mirza Sadler Performed By: #### H STROPN #### [facility] [address] [place] [address] Dr. Mirza Sadler Covid-19 PCR (CVDTB)on 09-30 SARS-CoV-2 (COVID-19) RNA RAMO+probe Ql (Unsp spec) Not detected Normal NOT DETECTED [facility] Comment on above: Result Comment: [...] for this test is supported by the [employer] of Health and Human Service's declaration that [...] #### P T, PTT #### [facility] [address] [address] [address] Mirza Sadler ER URINE PROFILEon 2 Bilirubin Ql (U) Negative Normal NEGATIVE [facility] Comment on above: Performed By: #### H STROPN #### [facility] [address] [place] [address] Dr. Mirza Sadler Clarity (U) CLEAR Normal CLEAR [facility] Comment on above: Performed By: #### H STROPN #### [facility] [address] [address] [address] Mirza Sadler Color (U) YELLOW Normal YELLOW [facility] Comment on above: Performed By: #### H STROPN #### [facility] [address] [place] [address] Dr. Mirza Sadler ERUAHD A micrscopic examina tion will be performed if indicated. Normal [facility] Comment on above: Performed By: #### H STROPN #### [facility] [address] [place] [address] Dr. Mirza Sadler Glucose Ql (U) >1000 Abnormal NEGATIVE [facility] Comment on above: Performed By: #### H STROPN #### [facility] [address] [place] [address] Dr. Mirza Sadler Hemoglobin Ql (U) Negative Normal NEGATIVE [facility] Comment on above: Performed By: #### H STROPN #### [facility] [address] [address] [address] Mirza Sadler Ketones Ql (U) TRACE Abnormal NEGATIVE [facility] Comment on above: Performed By: #### H STROPN #### [facility] [address] [address] [address] Mirza Sadler LEUKOCYTES Negative Normal NEGATIVE [facility] Comment on above: Performed By: #### H STROPN #### [facility] [address] [place] [address] Dr. Mirza Sadler Nitrite Ql (U) Negative Normal NEGATIVE [facility] Comment on above: Performed By: #### H STROPN #### [facility] [address] [place] [address] Dr. Mirza Sadler pH (U) 5.5 [pH] Normal 5-9 [facility] Comment on above: Performed By: #### H STROPN #### [facility] [address] [place] [address] Dr. Mirza Sadler SPEC GRAVITY 1.010 Normal 1.005-<=1. 025 [facility] Comment on above: Performed By: #### H STROPN #### [facility] [address] [place] [address] Dr. Mirza Sadler UA PROTEIN Negative Normal NEGATIVE/ TRACE [facility] Comment on above: Performed By: #### H STROPN #### [facility] [address] [place] [address] Dr. Mirza Sadler UR MICRO IND NOT INDICATED Normal [facility] Comment on above: Performed By: #### H STROPN #### [facility] [address] [place] [address] Dr. Mirza Sadler Urobilinogen Qn (U) 0.2 {Luisito'U}/dL Normal 0.2 - 1. 0 [facility] Comment on above: Performed By: #### H STROPN #### [facility] [address] [place] [address] Dr. Mirza Sadler INFLUENZA A AND B AGon 10-27 [facility] SEE BELOW Normal [facility] Comment on above: Result Comment: Nega tive for Flu A protein angiten. Infection due to Flu A cannot be ruled out. Flu A angiten in the sample may be below the detection limit of the test. Performed By: #### B ASSISTANT WAREHOUSE MANAGER #### [facility] [address] [place] [address] Dr. Mirza Sadler INFLUBNEGH SEE BELOW Normal [facility] Comment on above: Result Comment: Nega tive for Flu B protein antigen. Infection due to Flu B cannot be ruled out. Flu B antigen in the sample may be below the detection limit of the test. Performed By: #### B ASSISTANT WAREHOUSE MANAGER #### [facility] [address] [place] [address] Dr. Mirza Sadler INFLUENZA A AG Negative Normal NEGATIVE SEE COMMENT [facility] Comment on above: Performed By: #### B ASSISTANT WAREHOUSE MANAGER #### [facility] [address] [place] [address] Dr. Mirza Sadler INFLUENZA B AG Negative Normal NEGATIVE SEE COMMENT [facility] Comment on above: Performed By: #### B ASSISTANT WAREHOUSE MANAGER #### [facility] [address] [place] [address] Dr. Mirza Sadler INTERNAL CONTROLS Within Normal Limits Normal Wi thin Normal Limits [facility] Comment on above: Performed By: #### B ASSISTANT WAREHOUSE MANAGER #### [facility] [address] [place] [address] Dr. Mirza Sadler LACTATE/LACTIC ACIDon 2021 Lactate [Moles/Vol] 1.8 mmol/L Normal 0.4-1.9 [facility] Comment on above: Performed By: #### C MP CMADM #### [facility] [address] [place] [address] Dr. Mirza Sadler LIPASEon 10-27-2021 Lipase [Catalytic activity/Vol] 87.0 U/L Normal 73.0-393.0 [facility] Comment on above: Performed By: #### P T, PTT #### [facility] [address] [place] [address] Dr. Mirza Sadler PH VENOUS BLOODon 10-27-2021 PCO2 VENOUS 37.6 mmHg Critically low 40.0-52.0 [facility] Comment on above: Performed By: #### P T, PTT #### [facility] [address] [place] [address] Dr. Mirza Sadler pH VENOUS 7.422 Normal 7.330-7.43 0 [facility] Comment on above: Performed By: #### P T, PTT #### [facility] [facility] [address] [place] [address] Dr. Mirza Sadler PROF 14(COMP METB)on 022 Albumin [Mass/Vol] 4.2 g/dL Normal 3.4-5.0 [facility] Comment on above: Performed By: #### P T, PTT #### [facility] [address] [address] [address] Mirza Sadler Albumin/Globulin [Mass ratio] 1.3 {ratio} Normal [facility] Comment on above: Performed By: #### P T, PTT #### [facility] [address] [address] [address] Mirza Sadler ALP [Catalytic activity/Vol] 121 U/L Critically high 46-116 [facility] Comment on above: Performed By: #### P T, PTT #### [facility] [address] [address] [address] Mirza Sadler ALT [Catalytic activity/Vol] 22 U/L Normal 16-63 [facility] Comment on above: Performed By: #### P T, PTT #### [facility] [address] [place] [address] Dr. Mirza Sadler Anion gap [Moles/Vol] 16.0 mmol/L Normal [facility] Comment on above: Performed By: #### P T, PTT #### [facility] [address] [place] [address] Dr. Mirza Sadler AST [Catalytic activity/Vol] 18 U/L Normal 15-37 [facility] Comment on above: Performed By: #### P T, PTT #### [facility] [address] [place] [address] Dr. Mirza Sadler Bilirubin [Mass/Vol] 1.3 mg/dL Critically high 0.2-1.0 [facility] Comment on above: Performed By: #### P T, PTT #### [facility] [address] [address] [address] Mirza Sadler Calcium [Mass/Vol] 8.9 mg/dL Normal 8.5-10.1 [facility] Comment on above: Performed By: #### P T, PTT #### [facility] [address] [place] [address] Dr. Mirza Sadler Chloride [Moles/Vol] 105 mmol/L Normal 98-107 [facility] Comment on above: Performed By: #### P T, PTT #### [facility] [address] [address] [address] Mirza aSdler CO2 [Moles/Vol] 23.7 mmol/L Normal 21.0-32.0 [facility] Comment on above: Performed By: #### P T, PTT #### [facility] [address] [address] [address] Mirza Sadler Creatinine [Mass/Vol] 1.79 mg/dL Critically high 0.70-1.30 [facility] Comment on above: Performed By: #### P T, PTT #### [facility] [address] [address] [address] Mirza Sadler EGFR-AF PUERTO RICAN 46 mL/min/1.73m2 Critically low >=60 [facility] Comment on above: Performed By: #### P T, PTT #### [facility] [address] [place] [address] Dr. Mirza Sadler EGFR-NON AF PUERT[place] RICAN 38 mL/min/1.73m2 Critically low >=60 [facility] Comment on above: Performed By: #### P T, PTT #### [facility] [address] [place] [address] Dr. Mirza Sadler Globulin (S) [Mass/Vol] 3.3 g/dL Normal [facility] Comment on above: Performed By: #### P T, PTT #### [facility] [address] [place] [address] Dr. Mirza Sadler Glucose [Mass/Vol] 195 mg/dL Critically high 74-106 [facility] Comment on above: Performed By: #### P T, PTT #### [facility] [address] [place] [address] Dr. Mirza Sadler Potassium [Moles/Vol] 3.7 mmol/L Normal 3.5-5.1 [facility] Comment on above: Performed By: #### P T, PTT #### [facility] [address] [address] [address] Mirza Sadler Protein [Mass/Vol] 7.5 g/dL Normal 6.4-8.2 [facility] Comment on above: Performed By: #### P T, PTT #### [facility] [address] [place] [address] Dr. Mirza Sadler Sodium [Moles/Vol] 141 mmol/L Normal 136-145 [facility] Comment on above: Performed By: #### P T, PTT #### [facility] [address] [place] [address] Dr. Mirza Sadler Urea nitrogen [Mass/Vol] 25.0 mg/dL Critically high 7.0-18.0 [facility] Comment on above: Performed By: #### P T, PTT #### [facility] [address] [place] [address] Dr. Mirza Sadler Urea nitrogen/Creatinine [Mass ratio] 14.0 mg/mg Normal [facility] Comment on above: Performed By: #### P T, PTT #### [facility] [address] [place] [address] Dr. Mirza Sadler PROTIMEon 10-27-2021 INR Coag (PPP) [Relative time] 1.07 {INR} Normal [facility] Comment on above: Performed By: #### P T, PTT #### [facility] [address] [place] [address] Dr. Mirza Sadler INR GUIDELINES SEE BELOW Normal [facility] Comment on above: Result Comment: RIVKA RED INR: 2.0 - 3.0 CONDITIONS NOT LISTED BELOW 2.5 - 3.5 FOR PROSTHETIC HEART VALVE REPLACEMENT 2.5 - 3.5 RECURRENT THROMBOSIS Performed By: #### P T, PTT #### [facility] [address] [place] [address] Dr. Mirza Sadler PT Coag (PPP) [Time] 11.5 s Normal 9.0-11.6 [facility] Comment on above: Performed By: #### P T, PTT #### [facility] [address] [place] [address] Dr. Mirza Sadler PTTon 10-27-2021 aPTT Coag (Bld) [Time] 25.1 s Normal 22.3-36.2 [facility] Comment on above: Performed By: #### P T, PTT #### [facility] [address] [address] [address] Mirza Sadler XR CHEST 1 Von [...] GAGAN CAREY Date: 2021-10-27 10:21 [facility] Telephone ([employer]) -- LANI LIZAMA ([id number]) 1950 M Date Time Provider Department 10/20/21 ABDON WALKER During your visit today, we recorded the following information about you: Vee Day 10/20/2021 9:43 AM Signed New CBC order. Vee Day Allergies As of Date: 10/20/2021 Noted Allergy Reaction Nkda [Other] 07/28/2018 16 - Unknown Comments: Received name: Alfonsoda Date Reviewed: 10/20/2021 Reviewed by: Vickie Barrera PA-C - Fully Assessed Reason for Visit: Lab Orders [168] Primary Visit Diagnosis:Monoclonal gammopathy [D47.2] Order(s):CBC + DIFF [SQCBCDIF] Order #: [id number] FUTURE Prescriptions as of 10/24/2021 - famotidine (PEPCID) 40 mg tablet TAKE 1 2 (ONE HALF) TABLET BY MOUTH TWICE DAILY - aspirin, enteric coated (ASPIRIN, ENTERIC COATED) 81 mg EC tablet Aspirin Active 81 MG PO Daily March 24th, 2021 4:21am - Cholecalciferol, Vitamin D3, 25 mcg [...] Status:Closed by VEE DAY on 10/24/21 Normal [facility] RAD - CT Reporton 10-06-2021 RAD - CT Report [id number]:127 [address] [facility] CT ABD/PELVIS WO CONon 10-03 CT [...] by: HIGINIO FLANAGAN Date: 2021-10-03 16:29 Normal [facility] Ambulatory Visit Summaryon 0 09-29-2021 Ambulatory [...] RLQ ASHD (arteriosclerotic heart disease) Atheroscler of [place] artery of both legs with intermit claudication [...] infrarenal abdominal aorta due to atherosclerosis Normal [facility] Outside Colonoscopyon 2021 Outside Colonoscopy [id number]:127 Normal [facility] Physician Referralon 022 Physician Referral [id number]:127 Normal [facility] PROF 14(COMP METB)on 022 Albumin [Mass/Vol] 4.1 g/dL Normal 3.4-5.0 [facility] Comment on above: Performed By: #### P T, PTT #### [facility] [address] [address] [address] Mirza Sadler Albumin/Globulin [Mass ratio] 1.2 {ratio} Normal [facility] Comment on above: Performed By: #### P T, PTT #### [facility] [address] [address] [address] Mirza Sadler ALP [Catalytic activity/Vol] 132 U/L Critically high 46-116 [facility] Comment on above: Performed By: #### P T, PTT #### [facility] [address] [address] [address] Mirza Sadler ALT [Catalytic activity/Vol] 30 U/L Normal 16-63 [facility] Comment on above: Performed By: #### P T, PTT #### [facility] [address] [address] [address] Mirza Sadler Anion gap [Moles/Vol] 10.7 mmol/L Normal [facility] Comment on above: Performed By: #### P T, PTT #### [facility] [address] [place] [address] Dr. Mirza Sadler AST [Catalytic activity/Vol] 21 U/L Normal 15-37 [facility] Comment on above: Performed By: #### P T, PTT #### [facility] [address] [address] [address] Mirza Sadler Bilirubin [Mass/Vol] 0.7 mg/dL Normal 0.2-1.0 [facility] Comment on above: Performed By: #### P T, PTT #### [facility] [address] [place] [address] Dr. Mirza Sadler Calcium [Mass/Vol] 9.0 mg/dL Normal 8.5-10.1 [facility] Comment on above: Performed By: #### P T, PTT #### [facility] [address] [address] [address] Mirza Sadler Chloride [Moles/Vol] 106 mmol/L Normal 98-107 [facility] Comment on above: Performed By: #### P T, PTT #### [facility] [address] [address] [address] Mirza Sadler CO2 [Moles/Vol] 27.5 mmol/L Normal 21.0-32.0 [facility] Comment on above: Performed By: #### P T, PTT #### [facility] [address] [address] [address] Mirza Sadler Creatinine [Mass/Vol] 1.77 mg/dL Critically high 0.70-1.30 [facility] Comment on above: Performed By: #### P T, PTT #### [facility] [address] [address] [address] Mirza Sadler EGFR-AF PUERTO RICAN 46 mL/min/1.73m2 Critically low >=60 [facility] Comment on above: Performed By: #### P T, PTT #### [facility] [address] [address] [address] Mirza Sadler EGFR-NON AF PUERTO RICAN 38 mL/min/1.73m2 Critically low >=60 [facility] Comment on above: Performed By: #### P T, PTT #### [facility] [address] [address] [address] Mirza Sadler Globulin (S) [Mass/Vol] 3.5 g/dL Normal [facility] Comment on above: Performed By: #### P T, PTT #### [facility] [address] [address] [address] Mirza Sadler Glucose [Mass/Vol] 135 mg/dL Critically high 74-106 [facility] Comment on above: Performed By: #### P T, PTT #### [facility] [address] [address] [address] Mirza Sadler Potassium [Moles/Vol] 4.2 mmol/L Normal 3.5-5.1 [facility] Comment on above: Performed By: #### P T, PTT #### [facility] [address] [address] [address] Mirza Sadler Protein [Mass/Vol] 7.6 g/dL Normal 6.4-8.2 [facility] Comment on above: Performed By: #### P T, PTT #### [facility] [address] [address] [address] Mirza Sadler Sodium [Moles/Vol] 140 mmol/L Normal 136-145 [facility] Comment on above: Performed By: #### P T, PTT #### [facility] [address] [place], [place] [address] Dr. Mirza Sadler Urea nitrogen [Mass/Vol] 17.0 mg/dL Normal 7.0-18.0 [facility] Comment on above: Performed By: #### P T, PTT #### [facility] [address] [place], [place] [address] Dr. Mirza Sadler Urea nitrogen/Creatinine [Mass ratio] 9.6 mg/mg Normal [facility] Comment on above: Performed By: #### P T, PTT #### [facility] [address] [place], [place] [address] Dr. Mirza Sadler US SINGLE QUAD RT [...] by: HIGINIO FLANAGAN Date: 2021-08-27 08:40 Normal [facility] A1C HEMOGLOBINon 07-17-2021 HbA1c (Bld) [Mass fraction] 6.9 % [employer] Other Glucose - FINGER STICKon Glucose [Mass/Vol] 180 mg/dL [employer] Other HbA1c (Bld) [Mass fraction]o n 07-17-2021 A1C HEMOGLOBIN [facility] Other A1C with Estimated Average G luon 01-10-2022 HbA1c (Bld) [Mass fraction] 6.4 % [employer] Other HbA1c (Bld) [Mass fraction] 243 % [employer] Other Glucoseon 04-10-2021 Glucose [Mass/Vol] 243 mg/dL [employer] Other A1C HEMOGLOBINon 01-03-2021 HbA1c (Bld) [Mass fraction] 6.6 % [employer] Other Glucose - FINGER STICKon Glucose [Mass/Vol] 142 mg/dL [employer] Other HbA1c (Bld) [Mass fraction]o n 01-03-2021 A1C HEMOGLOBIN [facility] [employer] Other CNPNon 10-27-2020 [facility] Telephone ([employer]) -- LANI LIZAMA ([id number]) 1950 M Date Time Provider Department 10/27/20 [...] 07/28/2018 16 - Unknown Comments: Received name: Nkviola Date Reviewed: 10/25/2020 Reviewed by: Abdon Walker [...] Status:Closed by ANGELINE WARE on 10/28/20 Normal [facility] Cardiovascular Lab Reporton 10-16-2018 Cardiovascular Lab Report [facility] Patient Name: Lani Lizama [facility] MR #: [id number] Physician: Pinky Bishop, Department of M.D. Medicine Service Date: 10/15/2018 Division of Birthdate: 1950 Cardiology Room #: [id number] Adult Cardiovascular Services [facility] [address] [place] [address] Cardiovascular Laboratory Report FINAL IMPRESSIONS: 1. Severe three-vessel [place] coronary artery disease. 2. Gisa-ln-hybz bypass grafts patent. 3. Mild in-stent restenosis [...] 4. Follow up with me in the [facility] in the next 4-6 weeks. 5. [...] guidance and using a micropuncture kit. A 6-Cymraes Glidesheath was inserted without difficulty. Coronary angiography [...] of the vessel. There is evidence of yhof-gw-boinw collaterals. The distal vessel is supplied via [...] is a long stented segment in the mkcntoxy-tr-pamobz portion of the vessel with 30% in-stent restenosis. The vessel distal to the touchdown shows caliber reduction and no discrete stenosis. There is diffuse disease in the branches. Saphenous vein graft to the posterior descending artery. This is widely patent. It shows an extensive stented segment from swbjznac-ez-rwfdsyykyu of the vessel. There is a 40%-50% [...] P Pinky Bishop M.D. Date Dict: 10/15/2018/11:10 Jayshree Bishop M.D. Date Trans: 10/16/2018 05:01 A/gatito [id number] cc: Harley Crespo D.O. [address] [place] [id number] Normal [facility] BASIC METABOLIC PANELon 09-29 Calcium [Mass/Vol] 8.9 mg/dL Normal 8.6-10.3 [facility] Comment on above: Order Comment: No: D o not add to previous draw Performed By: #### 1 69, [id number] #### [facility] [address] [place] [address], [place] Chloride [Moles/Vol] 110 mmol/L High 98-107 [facility] Comment on above: Order Comment: No: D o not add to previous draw Performed By: #### 1 69, [id number] #### [facility] [address] [place] [address], [place] CO2 [Moles/Vol] 26 mmol/L Normal 21-31 [facility] Comment on above: Order Comment: No: D o not add to previous draw Performed By: #### 1 69, 43675 #### [facility] [address] [place] [address], [place] Creatinine [Mass/Vol] 1.52 mg/dL High 0.70-1.30 [facility] Comment on above: Order Comment: No: D o not add to previous draw Performed By: #### 1 69, 74879 #### [facility] [address] [place] [address], [place] GFR/1.73 sq M predicted among blacks MDRD (S/P/Bld) [Vol rate/Area] 56 ml/min/1.73sq m Abnormal >60 [facility] Comment on above: Order Comment: No: D o not add to previous draw Performed By: #### 1 69, 37161 #### [facility] [address] [place] [address], [place] GFR/1.73 sq M predicted among non-blacks MDRD (S/P/Bld) [Vol rate/Area] 46 ml/min/1.73sq m Abnormal >60 [facility] Comment on above: Order Comment: No: D o not add to previous draw Performed By: #### 1 69, 91598 #### [facility] [address] [place] [address], [place] Glucose [Mass/Vol] 89 mg/dL Normal 70-100 [facility] Comment on above: Order Comment: No: D o not add to previous draw Performed By: #### 1 69, 24343 #### [facility] [address] [place] [address], [place] Potassium [Moles/Vol] 3.9 mmol/L Normal 3.5-5.1 [facility] Comment on above: Order Comment: No: D o not add to previous draw Performed By: #### 1 69, 55981 #### [facility] [address] [place] [address], [place] Sodium [Moles/Vol] 141 mmol/L Normal 136-145 [facility] Comment on above: Order Comment: No: D o not add to previous draw Performed By: #### 1 69, 09155 #### [facility] [address] [place] [address], [place] Urea nitrogen [Mass/Vol] 19 mg/dL Normal 7-25 [facility] Comment on above: Order Comment: No: D o not add to previous draw Performed By: #### 1 69, 41032 #### [facility] [address] [place] [address], [facility] CBC W/DIFFon 10-15-2018 ABS BASOPHILS 0.1 10*3/uL Normal 0.0-0.2 [facility] Comment on above: Order Comment: No: D o not add to previous draw Performed By: #### 5 0103 #### [facility] [address] [place] [address], [facility] ABS IMM GRANS 0.0 10*3/uL Normal 0.0-0.2 [facility] Comment on above: Order Comment: No: D o not add to previous draw Performed By: #### 5 0103 #### [facility] [address] [place] [address], [facility] ABS NEUTROPHILS 3.5 10*3/uL Normal 1.6-7.6 [facility] Comment on above: Order Comment: No: D o not add to previous draw Performed By: #### 5 0103 #### [facility] [address] [facility] [place] [address], [facility] Basophils/100 WBC (Bld) 0.8 % Normal 0.0-1.0 [facility] Comment on above: Order Comment: No: D o not add to previous draw Performed By: #### 5 0103 #### [facility] [address] [facility] [place] [address], [facility] Eosinophils (Bld) [#/Vol] 0.3 10*3/uL Normal 0.0-0.5 [facility] Comment on above: Order Comment: No: D o not add to previous draw Performed By: #### 5 0103 #### [facility] [address] [facility]. [place] [id number], [facility] Eosinophils/100 WBC (Bld) 3.9 % Normal 0.0-6.0 [facility] Comment on above: Order Comment: No: D o not add to previous draw Performed By: #### 5 0103 #### [facility] [address] Erythrocyte distribution width (RBC) [Ratio] 13.5 % Normal 11.5-15.0 [facility] Comment on above: Order Comment: No: D o not add to previous draw Performed By: #### 5 0103 #### [facility] [address] [place] [id number], [facility] Hematocrit (Bld) [Volume fraction] 39.7 % Normal 39.0-50.0 [facility] Comment on above: Order Comment: No: D o not add to previous draw Performed By: #### 5 3 #### [facility] [address] [facility] [place] [address], [facility] Hemoglobin (Bld) [Mass/Vol] 13.0 g/dL Normal 13.0-17.0 [facility] Comment on above: Order Comment: No: D o not add to previous draw Performed By: #### 5 0103 #### [facility] [address] [place] [address], [facility] IMMATURE GRANS 0.3 % Normal 0.0-1.0 [facility] Comment on above: Order Comment: No: D o not add to previous draw Performed By: #### 5 3 #### [facility] [address] [place] [address], [facility] Lymphocytes (Bld) [#/Vol] 1.9 10*3/uL Normal 1.2-4.0 [facility] Comment on above: Order Comment: No: D o not add to previous draw Performed By: #### 5 3 #### [facility] [address] [place] [address], [facility] Lymphocytes/100 WBC (Bld) 30.1 % Normal 20.0-45.0 [facility] Comment on above: Order Comment: No: D o not add to previous draw Performed By: #### 5 3 #### [facility] [address] [place] [address], [facility] MCH (RBC) [Entitic mass] 30.0 pg Normal 27.0-33.0 [facility] Comment on above: Order Comment: No: D o not add to previous draw Performed By: #### 5 0103 #### [facility] [address] [place] [id number], [facility] MCHC (RBC) [Mass/Vol] 32.7 g/dL Normal 32.0-35.0 [facility] Comment on above: Order Comment: No: D o not add to previous draw Performed By: #### 5 0103 #### [facility] [address] [place] [id number], [facility] MCV (RBC) [Entitic vol] 91.5 fL Normal 82.0-98.0 [facility] Comment on above: Order Comment: No: D o not add to previous draw Performed By: #### 5 3 #### [facility] [address] [place] [id number], [facility] Monocytes (Bld) [#/Vol] 0.7 10*3/uL Normal 0.1-1.0 [facility] Comment on above: Order Comment: No: D o not add to previous draw Performed By: #### 5 3 #### [facility] [address] [place] [id number], [facility] MONOS 10.7 % Normal 5.0-12.0 [facility] Comment on above: Order Comment: No: D o not add to previous draw Performed By: #### 5 0103 #### [facility] [address] [place] [id number], [facility] Neutrophils/100 WBC (Bld) 54.2 % Normal 40.0-72.0 [facility] Comment on above: Order Comment: No: D o not add to previous draw Performed By: #### 5 3 #### [facility] [address] [place] [id number], [facility] Nucleated RBC/100 WBC (Bld) [Ratio] 0 % Normal 0-0 [facility] Comment on above: Order Comment: No: D o not add to previous draw Performed By: #### 5 0103 #### [facility] [address] [place] [address], [facility] PLAT CNT 164 10*3/uL Normal 150-400 [facility] Comment on above: Order Comment: No: D o not add to previous draw Performed By: #### 5 0103 #### [facility] [address] [place] [address], [facility] RBC (Bld) [#/Vol] 4.34 10*6/uL Normal 4.20-5.70 [facility] Comment on above: Order Comment: No: D o not add to previous draw Performed By: #### 5 0103 #### [facility] [address] [place] [address], [facility] WBC (Bld) [#/Vol] 6.38 10*3/uL Normal 4.00-10.60 [facility] Comment on above: Order Comment: No: D o not add to previous draw Performed By: #### 5 0103 #### [facility] [address] [place] [address], [facility] MAGNESIUM BLOODon 10-15-2018 Magnesium [Mass/Vol] 2.0 mg/dL Normal 1.9-2.7 [facility] [facility] Comment on above: Order Comment: No: D o not add to previous draw Performed By: #### 1 [id number], [id number] #### [facility] [address] [place] [address], [facility] PROTHROMBIN TIMEon 9 INR Coag (PPP) [Relative time] 1.11 {INR} Normal 0.91-1.16 [facility] Comment on above: Order Comment: No: [...] 1995;[id number]. Performed By: #### 5 [id number] #### [address] PT Coag (PPP) [Time] 14.3 s Normal 12.3-14.8 [facility] Comment on above: Order Comment: No: D o not add to previous draw Result Comment: ALL RESULTS MUST BE INTERPRETED WITH RESPECT TO BLOOD DRAWING ARTIFACT OR DILUTION ERROR OF ANTICOAGULANT AT THE TIME OF SAMPLING. Performed By: #### 5 [id number] #### [address] POC GLUCOSE LABon 10-14-2018 Glucose [Mass/Vol] 180 mg/dL High 70-100 [facility] Comment on above: Performed By: #### [id number] #### [facility] [address] Cardiovascular Lab Reporton 02-25-2018 Cardiovascular Lab Report [facility] Patient Name: Lani Lizama [facility] MR #: [id number] Physician: Pinky Bishop, Department of M.D. Medicine Service Date: 02/24/2018 Division of Birthdate: 1950 Cardiology Room #: 3AB [id number] Adult Cardiovascular Services [facility] [address] [place], [place] [address] Cardiovascular Laboratory Report FINAL IMPRESSIONS: 1. 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 2. Severe 3-vessel [place] coronary artery disease. 3. 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 4. Kjyqhiuq-ad-letujd systemic hypertension. RECOMMENDATIONS: 1. Aspirin 81 mg lifelong. 2. 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 3. Aggressive cardiovascular risk factor modification. 4. Optimization of medical management; high intensity statin therapy as tolerated, we will switch his Toprol-XL to Coreg 25 mg p.o. b.i.d., and angiotensin-converting enzyme inhibitor. 5. Follow up with me in the [facility] in the next 2-3 weeks. 6. Follow up with Dr. Crespo as scheduled. PROCEDURES: Limited femoral angiography, bilateral selective coronary angiography, saphenous vein graft angiography, angiography of the left internal mammary artery graft, limited angiography of the left subclavian, percutaneous balloon angioplasty, and Synergy drug-eluting stent placement to the saphenous vein graft to the obtuse marginal, placement of a 6-Cymraes MYNXGRIP closure device. METHODS: After risks, benefits, and alternatives were explained, written informed consent was obtained. The patient was prepped and draped in usual sterile fashion over both groins. Using 1% lidocaine solution, local infiltration anesthesia was achieved over the right groin. Using a micropuncture kit, access of the right common femoral artery was obtained. A 6-Cymraes 11 cm sheath was exchanged then without [...] to proceed with an interventional procedure. A 6-Cymraes JR4 guide catheter was advanced in and [...] the procedure. All catheters were removed. A 6-Cymraes MYNXGRIP closure device was deployed per protocol [...] is a 30% touchdown stenosis of the [place] vessel. There is evidence of lhtu-fv-ebpgj collaterals supplying the distal right coronary artery. Limited femoral angiography, this shows mild plaque and anatomy suitable for closure device. INDICATIONS: Unstable angina. Electronically Signed by: Pinky Bishop M.D. 03/06/2018 12:15 P Pinky Bishop M.D. Date Dict: 02/24/2018/01:39 P/Pinky Bishop M.D. Date Trans: 02/25/2018 02:12 A/gatito [id number] cc: Harley Crespo D.O. [address] [place] [id number] Normal [facility] POC GLUCOSE LABon 02-25-2018 Glucose [Mass/Vol] 150 mg/dL High 70-100 [facility] Comment on above: Performed By: #### [id number] #### [facility] [address] [facility] [place] [address], [facility] POC GLUCOSE LABon 02-24-2018 Glucose [Mass/Vol] 192 mg/dL High 70-100 [facility] Comment on above: Performed By: #### [id number] #### [facility] [address] [place] [address], [place] Glucose [Mass/Vol] 186 mg/dL High 70-100 [facility] Comment on above: Performed By: #### [id number] #### [facility] [address] Vital Signs Date Time Vital Sign Value Performing Clinician Facility 06-18-2023 10:51-0400 Body height 170.18 cm [facility] 06-18-2023 10:51-0400 Body mass index (BMI) [Ratio] 26.6 kg/m2 [facility] 06-18-2023 10:51-0400 Body weight 77.11 kg [facility] 06-18-2023 10:51-0400 Diastolic blood pressure 84 mm[Hg] [facility] 06-18-2023 10:51-0400 Heart rate 95 /min [facility] 06-18-2023 10:51-0400 Respiratory rate 18 /min [facility] 06-18-2023 10:51-0400 SaO2% (BldA) [Mass fraction] 97 % [facility] 06-18-2023 10:51-0400 Systolic blood pressure 127 mm[Hg] [facility] 05-03-2023 09:30-0500 Body height 170.18 cm DO Harley Ball Work Phone: [facility] 05-03-2023 09:30-0500 Body weight 77.29 kg DO Harley Ball Work Phone: [facility] 05-03-2023 09:30-0500 Diastolic blood pressure 85 mm[Hg] DO Harley Ball Work Phone: [facility] 05-03-2023 09:30-0500 Systolic blood pressure 126 mm[Hg] DO Harley Ball Work Phone: [facility] 03-12-2023 11:15-0500 Body height 170.18 cm Tondra Mapus Other [facility] 03-12-2023 11:15-0500 Body mass index (BMI) [Ratio] 27.03 kg/m2 Tondra Mapus Other [employer] Other 03-12-2023 11:15-0500 Body weight 78.29 kg Tondra Mapus Other [facility] 03-12-2023 11:15-0500 Diastolic blood pressure 79 mm[Hg] Tondra Mapus Other [facility] 03-12-2023 11:15-0500 Respiratory rate 18 /min Tondra Mapus Other [employer] Other 03-12-2023 11:15-0500 SaO2% (BldA) [Mass fraction] 98 % Tondra Mapus Other [employer] Other 03-12-2023 11:15-0500 Systolic blood pressure 128 mm[Hg] Tondra Mapus Other [facility] 01-07-2023 10:00-0400 Body height 170.18 cm Kingsley Latisha Other [employer] Other 01-07-2023 10:00-0400 Body mass index (BMI) [Ratio] 27 kg/m2 Kingsley Latisha Other [facility] Other 01-07-2023 10:00-0400 Body temperature 97.7 [degF] Kingsley Latisha Other [facility] Other 01-07-2023 10:00-0400 Body weight 78.2 kg Kingsley Latisha Other [facility] Other 01-07-2023 10:00-0400 Diastolic blood pressure 73 mm[Hg] Kingsley Latisha Other [facility] Other 01-07-2023 10:00-0400 Respiratory rate 16 /min Kingsley Latisha Other [facility] Other 01-07-2023 10:00-0400 SaO2% (BldA) [Mass fraction] 98 % Kingsley Latisha Other [facility] Other 01-07-2023 10:00-0400 Systolic blood pressure 108 mm[Hg] Kingsley Latisha Other [facility] Other 12-31-2022 09:30-0400 Body height 170.18 cm Harley Ball Other [employer] Other 12-31-2022 09:30-0400 Body mass index (BMI) [Ratio] 27.03 kg/m2 Harley Ball Other [facility] Other 12-31-2022 09:30-0400 Body weight 78.29 kg Harley Ball Other [facility] Other 12-31-2022 09:30-0400 Diastolic blood pressure 69 mm[Hg] Harley Ball Other [employer] Other 12-31-2022 09:30-0400 Respiratory rate 16 /min Harley Ball Other [employer] Other 12-31-2022 09:30-0400 Systolic blood pressure 102 mm[Hg] Harley Ball Other [facility] Other 08-31-2022 08:45-0400 Body height 170.18 cm Harley Ball Other [employer] Other 08-31-2022 08:45-0400 Body mass index (BMI) [Ratio] 26.72 kg/m2 Harley Ball Other [facility] Other 08-31-2022 08:45-0400 Body weight 77.38 kg Harely Ball Other [employer] Other 08-31-2022 08:45-0400 Diastolic blood pressure 69 mm[Hg] Harley Ball Other [employer] Other 08-31-2022 08:45-0400 Respiratory rate 12 /min Harley Ball Other [employer] Other 08-31-2022 08:45-0400 Systolic blood pressure 102 mm[Hg] Harley Ball Other [employer] Other 07-02-2022 10:40-0400 Body height 170.18 cm Kingsley Latisha Other [facility] Other 07-02-2022 10:40-0400 Body mass index (BMI) [Ratio] 27.69 kg/m2 Kingsley Latisha Other [facility] Other 07-02-2022 10:40-0400 Body temperature 96.4 [degF] Kingsley Latisha Other [facility] Other 07-02-2022 10:40-0400 Body weight 80.2 kg Kingsley Latisha Other [facility] Other 07-02-2022 10:40-0400 Diastolic blood pressure 71 mm[Hg] Kingsley Latisha Other [facility] Other 07-02-2022 10:40-0400 Respiratory rate 16 /min Kingsley Latisha Other [facility] Other 07-02-2022 10:40-0400 SaO2% (BldA) [Mass fraction] 97 % Kingsley Latisha Other [facility] Other 07-02-2022 10:40-0400 Systolic blood pressure 115 mm[Hg] Kingsley Latisha Other [facility] Other 06-28-2022 09:30-0400 Body height 170.18 cm Harley Ball Other [facility] Other 06-28-2022 09:30-0400 Body mass index (BMI) [Ratio] 27.16 kg/m2 Harley Ball Other [facility] Other 06-28-2022 09:30-0400 Body weight 78.65 kg Harley Ball Other [facility] Other 06-28-2022 09:30-0400 Diastolic blood pressure 66 mm[Hg] Harley Ball Other [facility] Other 06-28-2022 09:30-0400 Respiratory rate 12 /min Harley Ball Other [employer] Other 06-28-2022 09:30-0400 Systolic blood pressure 115 mm[Hg] Harley Ball Other [employer] Other 06-26-2022 08:45-0400 Body height 170.18 cm Tondra Mapus Other [employer] Other 06-26-2022 08:45-0400 Body mass index (BMI) [Ratio] 27.75 kg/m2 Tondra Mapus Other [facility] Other 06-26-2022 08:45-0400 Body weight 80.38 kg Tondra Mapus Other [facility] Other 06-26-2022 08:45-0400 Diastolic blood pressure 61 mm[Hg] Tondra Mapus Other [facility] Other 06-26-2022 08:45-0400 Respiratory rate 16 /min Tondra Mapus Other [facility] Other 06-26-2022 08:45-0400 SaO2% (BldA) [Mass fraction] 96 % Tondra Mapus Other [facility] Other 06-26-2022 08:45-0400 Systolic blood pressure 105 mm[Hg] Tondra Mapus Other [facility] Other 03-20-2022 09:15-0500 Body height 170.18 cm Tondra Mapus Other [employer] Other 03-20-2022 09:15-0500 Body mass index (BMI) [Ratio] 26.15 kg/m2 Tondra Mapus Other [facility] Other 03-20-2022 09:15-0500 Body weight 75.75 kg Tondra Mapus Other [facility] Other 03-20-2022 09:15-0500 Diastolic blood pressure 57 mm[Hg] Tondra Mapus Other [facility] Other 03-20-2022 09:15-0500 Respiratory rate 16 /min Tondra Mapus Other [employer] Other 03-20-2022 09:15-0500 SaO2% (BldA) [Mass fraction] 98 % Tona Desireeus Other [employer] Other 03-20-2022 09:15-0500 Systolic blood pressure 117 mm[Hg] Tona Desireeus Other [employer] Other 01-17-2022 11:45-0400 Body height 170.18 cm DO Harley Ball Work Phone: [facility] 01-17-2022 11:22-0400 Diastolic blood pressure 68 mm[Hg] DO Harley Ball Work Phone: [facility] 01-17-2022 11:22-0400 Heart rate 60 /min DO Harley Ball Work Phone: [facility] 01-17-2022 11:22-0400 Systolic blood pressure 118 mm[Hg] DO Harley Ball Work Phone: [facility] 01-17-2022 11:05-0400 Body temperature 97.4 [degF] DO Harley Ball Work Phone: [facility] 01-17-2022 11:05-0400 Respiratory rate 18 /min DO Harley Ball Work Phone: [facility] 01-17-2022 11:05-0400 SaO2% (BldA) [Mass fraction] 95 % DO Harley Ball Work Phone: [facility] 01-17-2022 06:58-0400 Body weight 77.9 kg DO Harley Ball Work Phone: [facility] 01-15-2022 15:23-0400 Inhaled oxygen flow rate 2 L/min DO Harley Ball Work Phone: [facility] 12-18-2021 09:45-0400 Body height 170.18 cm Tondra Kwong Other [employer] Other 12-18-2021 09:45-0400 Body mass index (BMI) [Ratio] 27.25 kg/m2 Tondra Mapus Other [employer] Other 12-18-2021 09:45-0400 Body weight 78.93 kg Tondra Mapus Other [employer] Other 12-18-2021 09:45-0400 Diastolic blood pressure 65 mm[Hg] Tondra Mapus Other [employer] Other 12-18-2021 09:45-0400 Respiratory rate 16 /min Tondra Mapus Other [employer] Other 12-18-2021 09:45-0400 SaO2% (BldA) [Mass fraction] 97 % Tondra Mapus Other [employer] Other 12-18-2021 09:45-0400 Systolic blood pressure 133 mm[Hg] Tondra Mapus Other [employer] Other 09-29-2021 13:13-0400 Blood Pressure Location [facility] 09-29-2021 13:13-0400 Diastolic blood pressure 74 mm[Hg] Gagan NILL [facility] 09-29-2021 13:13-0400 Heart rate 60 /min Gagan NILL [facility] 09-29-2021 13:13-0400 Respiratory rate 16 /min Gagan NILL [facility] [place] 09-29-2021 13:13-0400 Systolic blood pressure 138 mm[Hg] Gagan DAVID [facility] 07-17-2021 09:45-0400 Body height 170.18 cm Tondra Mapus Other [employer] Other 07-17-2021 09:45-0400 Body mass index (BMI) [Ratio] 30.69 kg/m2 Tondra Mapus Other [employer] Other 07-17-2021 09:45-0400 Body weight 88.91 kg Tondra Mapus Other [employer] Other 07-17-2021 09:45-0400 Diastolic blood pressure 73 mm[Hg] Tondra Mapus Other [employer] Other 07-17-2021 09:45-0400 Respiratory rate 16 /min Tondra Mapus Other [employer] Other 07-17-2021 09:45-0400 SaO2% (BldA) [Mass fraction] 97 % Tondra Mapus Other [employer] Other 07-17-2021 09:45-0400 Systolic blood pressure 163 mm[Hg] Tondra Mapus Other [employer] Other 06-06-2021 10:20-0500 Body height 170.18 cm Kingsley Latisha Other [employer] Other 06-06-2021 10:20-0500 Body mass index (BMI) [Ratio] 30.29 kg/m2 Kingsley Latisha Other [facility] Other 06-06-2021 10:20-0500 Body temperature 96.1 [degF] Kingsley Latisha Other [facility] Other 06-06-2021 10:20-0500 Body weight 87.73 kg Kingsley Latisha Other [facility] Other 06-06-2021 10:20-0500 Diastolic blood pressure 70 mm[Hg] Kingsley Latisha Other [employer] Other 06-06-2021 10:20-0500 Respiratory rate 18 /min Kingsley Latisha Other [employer] Other 06-06-2021 10:20-0500 SaO2% (BldA) [Mass fraction] 97 % Kingsley Latisha Other [employer] Other 06-06-2021 10:20-0500 Systolic blood pressure 160 mm[Hg] Kingsley Latisha Other [employer] Other 04-10-2021 09:15-0500 Body height 170.18 cm Tondra Mapus Other [employer] Other 04-10-2021 09:15-0500 Body mass index (BMI) [Ratio] 30.99 kg/m2 Tondra Mapus Other [employer] Other 04-10-2021 09:15-0500 Body weight 89.77 kg Tondra Mapus Other [employer] Other 04-10-2021 09:15-0500 Diastolic blood pressure 64 mm[Hg] Tondra Mapus Other [facility] Other 04-10-2021 09:15-0500 Respiratory rate 18 /min Tondra Desireeus Other [employer] Other 04-10-2021 09:15-0500 SaO2% (BldA) [Mass fraction] 98 % Tondra Mapus Other [employer] Other 04-10-2021 09:15-0500 Systolic blood pressure 136 mm[Hg] Tondra Desireeus Other [employer] Other 02-14-2021 10:00-0500 Body height 170.18 cm Kingsley Latisha Other [employer] Other 02-14-2021 10:00-0500 Body mass index (BMI) [Ratio] 30.98 kg/m2 Kingsley Latisha Other [facility] Other 02-14-2021 10:00-0500 Body temperature 96 [degF] Kingsley Latisha Other [employer] Other 02-14-2021 10:00-0500 Body weight 89.72 kg Kingsley Latisha Other [employer] Other 02-14-2021 10:00-0500 Diastolic blood pressure 60 mm[Hg] Kingsley Latisha Other [employer] Other 02-14-2021 10:00-0500 Respiratory rate 16 /min Kingsley Latisha Other [facility] Other 02-14-2021 10:00-0500 SaO2% (BldA) [Mass fraction] 97 % Kingsley Latisha Other [employer] Other 02-14-2021 10:00-0500 Systolic blood pressure 130 mm[Hg] Kingsley Latisha Other [facility] Other 01-03-2021 10:15-0400 Body height 170.18 cm Tondra Mapus Other [employer] Other 01-03-2021 10:15-0400 Body mass index (BMI) [Ratio] 31.01 kg/m2 Tondra Mapus Other [facility] Other 01-03-2021 10:15-0400 Body weight 89.81 kg Tondra Mapus Other [facility] Other 01-03-2021 10:15-0400 Diastolic blood pressure 67 mm[Hg] Tondra Mapus Other [facility] Other 01-03-2021 10:15-0400 Respiratory rate 16 /min Tondra Mapus Other [facility] Other 01-03-2021 10:15-0400 SaO2% (BldA) [Mass fraction] 99 % Tondra Mapus Other [employer] Other 01-03-2021 10:15-0400 Systolic blood pressure 151 mm[Hg] Tondra Mapus Other [employer] Other Encounters Encounter Date Encounter Type Care Provider Facility Start: 06-18-2023 End: 06-18-2023 [facility] Work Phone: Start: 06-18-2023 End: 06-18-2023 Patient encounter procedure [facility] Work Phone: Start: 06-13-2023 Non-patient / Non-visit [facility] [employer] Work Phone: Start: 05-07-2023 End: 05-07-2023 ambulatory KEVIN [facility] Start: 05-03-2023 End: 05-03-2023 Patient encounter procedure DO Harley Crespo Work Phone: [facility]- Start: 04-30-2023 Telephone encounter Kingsley Woods [facility] Start: 04-30-2023 End: 04-30-2023 ambulatory [facility] [employer] Other Start: 04-23-2023 End: 04-23-2023 ambulatory Tondra Mapus Other [facility] [employer] Other Start: 04-23-2023 Telephone encounter Tondrnakul Kwong [facility] Start: 03-18-2023 End: 03-18-[address] [facility] Start: 03-12-2023 (DM) Diabetes Tonnakul Kwong [facility] Start: 03-12-2023 End: 03-13-2023 ambulatory DO Harley Crespo Work Phone: [facility] [employer] Other Start: 03-12-2023 End: 03-12-2023 Discharged Recurring DO [facility]respo [facility] Work Phone: Start: 03-12-2023 End: 03-12-2023 Patient encounter procedure DO Harley Crespo Work Phone: [facility] Work Phone: Start: 03-07-2023 End: 03-07-2023 ambulatory [facility] Start: 03-05-2023 End: 03-05-2023 ambulatory KEVIN [facility] Start: 02-19-2023 End: 02-19-2023 ambulatory DEISY SOARES [facility] Start: 02-12-2023 Telephone encounter Harley Crespo [facility] Start: 02-12-2023 End: 02-12-2023 ambulatory KEVIN VALDEZCKO [facility] [employer] Other Start: 02-07-2023 End: 02-07-2023 ambulatory Harlye Crespo Other [employer] Other Start: 02-07-2023 Telephone encounter Harley Crespo [facility] Start: 02-06-2023 End: 02-06-2023 ambulatory Arlen Kwong Other [employer] Other Start: 02-06-2023 Telephone encounter Tonnakul Ram[facility]rez [facility] Start: 02-01-2023 End: 02-01-2023 [facility] Start: 01-29-2023 End: 01-29-2023 ambulatory Harley Crespo Other [employer] Other Start: 01-29-2023 Telephone encounter Harley Crespo MONTEZ [facility] Start: 01-25-2023 End: 01-28-2023 Evaluation and management of inpatient DELTA [facility] Start: 01-17-2023 Telephone encounter Arlen [facility] Start: 01-17-2023 End: 01-17-2023 ambulatory EHAB ZABRINATADONTAEY [facility] [employer] Other Start: 01-07-2023 End: 01-07-2023 ambulatory Harley Crespo Other [employer] Other Start: 01-07-2023 Office outpatient visit 25 minutes [facility] Start: 01-07-2023 Telephone encounter Harley Crespo [facility] Start: 01-04-2023 End: 01-04-2023 ambulatory Kingsley Latisha Other [employer] Other Start: 01-04-2023 Telephone encounter Kingsley Latisha [facility] Start: 01-01-2023 End: 01-01-2023 ambulatory Kingsley Latisha Other [employer] Other Start: 01-01-2023 Telephone encounter Kingsley Latisha [facility] Start: 12-31-2022 End: 12-31-2022 ambulatory Harley Crespo Other [employer] Other Start: 12-31-2022 Office outpatient visit 25 minutes Harley Crespo [facility] Start: 12-31-2022 Telephone encounter Harley HERRMANN [facility] Start: 12-13-2022 End: 12-13-2022 ambulatory Denita Chairez Other [employer] Other Start: 12-13-2022 Nursing evaluation o f patient and report Denita Chairez [facility] Start: 11-23-2022 End: 11-23-2022 ambulatory Tondra Mapus Other [employer] Other Start: 11-23-2022 Telephone encounter Tondra Mapus [facility] Start: 10-12-2022 End: 10-12-2022 ambulatory Tondra Mapus Other [employer] Other Start: 10-12-2022 Telephone encounter Tondra Mapus [facility] Start: 10-09-2022 Telephone encounter Harley HERRMANN [facility] Start: 10-09-2022 End: 10-09-2022 [facility] [employer] Other Start: 10-01-2022 End: 10-01-2022 ambulatory Harley Cerspo Other [employer] Other Start: 10-01-2022 Telephone encounter Harley Crespo [facility] Start: 09-27-2022 End: 09-27-2022 ambulatory Kingsley Latisha Other [employer] Other Start: 09-27-2022 Telephone encounter Kingsley Latisha [facility] Start: 09-26-2022 End: 09-26-2022 ambulatory Harley Crespo Other [employer] Other Start: 09-26-2022 Telephone encounter Harley Cherie [facility] Start: 09-19-2022 End: 09-19-2022 ambulatory Kingsley Latisha Other [employer] Other Start: 09-19-2022 Telephone encounter Kingsley Latisha [facility] Start: 09-12-2022 End: 09-12-2022 ambulatory Harley Crespo Other [employer] Other Start: 09-12-2022 Telephone encounter Harley Crespo [facility] Start: 09-03-2022 End: 09-03-2022 ambulatory Harley Crespo Other [employer] Other Start: 09-03-2022 Telephone encounter Harley Cherie [facility] Start: 08-31-2022 End: 08-31-2022 ambulatory Harley Crespo Other [employer] Other Start: 08-31-2022 Office outpatient visit 25 minutes Harley Crespo [facility] Start: 08-10-2022 End: 08-10-2022 ambulatory Harley Cehrie Other [employer] Other Start: 08-10-2022 Telephone encounter Harley Crespo [facility] Start: 08-09-2022 End: 08-10-[address] HARLEY CRESPO [facility] [employer] Other Start: 08-09-2022 Telephone encounter Kingsley Latisha [facility] Start: 07-31-2022 End: 07-31-2022 ambulatory [facility] Start: 07-24-2022 End: 07-24-2022 ambulatory [facility] Start: 07-02-2022 End: 07-02-2022 ambulatory Kingsley Latisha Other [employer] Other Start: 07-02-2022 Office outpatient visit 25 minutes Kingsley Latisha [facility] Start: 06-28-2022 End: 06-28-2022 ambulatory Harley Crespo Other [employer] Other Start: 06-28-2022 Patient encounter procedure Harley Crespo [facility] Start: 06-26-2022 (DM) Diabetes Tondra Mapus [facility] Start: 06-26-2022 End: 06-26-2022 ambulatory Tondra Mapus Other [employer] Other Start: 06-25-2022 End: 06-25-2022 ambulatory [facility] Start: 06-25-2022 End: 06-26-2022 ambulatory KINGSLEY LATISHA Facility:[facility] Start: 06-18-2022 End: 06-19-2022 ambulatory TONDRA MAPUS Facility:[facility] Start: 06-05-2022 End: 06-06-[address] HARLEY CRESPO Facility:[facility] Start: 05-29-2022 End: 05-29-2022 ambulatory [facility] Start: 05-26-2022 End: 05-26-2022 ambulatory Harley Crespo Other [employer] Other Start: 05-26-2022 Telephone encounter Harley Crespo [facility] Start: 05-25-2022 End: 05-25-2022 ambulatory Tondra Mapus Other [employer] Other Start: 05-25-2022 Telephone encounter Tondra Mapus [facility] [facility] Start: 05-03-2022 End: 05-04-[address] PINKY BISHOP Facility:H1 Start: 04-18-2022 End: 04-19-[address] PINKY BISHOP Facility:[facility]1 Start: 03-22-2022 End: 03-23-[address] HIGINIO FLANAGAN Facility:[facility]1 Start: 03-20-2022 (DM) Diabetes Tondra Mapus [facility] Start: 03-20-2022 End: 03-20-2022 ambulatory Tondra Mapus Other [employer] Other Start: 03-12-2022 End: 03-13-2022 Evaluation and management of inpatient DR PARUL CHU Facility:[facility]1 Start: 03-09-2022 End: 03-10-[address] SHANNON LANDIS Facility:[facility]1 Start: 03-02-2022 End: 03-03-[address] HARLEY CRESPO Facility:[facility]1 Start: 02-19-2022 End: 02-19-2022 ambulatory Tondra Mapus Other [employer] Other Start: 02-19-2022 Telephone encounter Tondra Mapus [facility] Start: 02-08-2022 End: 02-08-2022 ambulatory Tondra Mapus Other [employer] Other Start: 02-08-2022 Telephone encounter Tondra Mapus [facility] Start: 01-15-2022 End: 01-17-2022 Evaluation and management of inpatient DO Harley Crespo Work Phone: [facility] [place] [facility] Start: 01-15-2022 End: 01-15-[address] HARLEY CRESPO Facility:[facility]1 Start: 12-18-2021 Registered Recurring DO Zamudio in [place] [facility] Start: 12-18-2021 (DM) Diabetes Tondra Desireeus [facility] Start: 12-18-2021 End: 12-18-2021 ambulatory Tondra Mapus Other [employer] Other Start: 12-08-2021 End: 12-09-[address] HARLEY CRESPO Facility:[facility]1 Start: 11-30-2021 End: 12-01-2021 ambulatory KINGSLEY LATISHA Facility:H1 Start: 11-24-2021 End: 11-25-[address] HARLEY CRESPO Facility:[facility]1 Start: 11-16-2021 End: 11-16-2021 ambulatory Tondra Mapus Other [employer] Other Start: 11-16-2021 Telephone encounter Tondra Mapus [facility] Start: 2021 End: 2021 ambulatory Tondra Mapus Other [employer] Other Start: 2021 Telephone encounter Tondra Mapus [facility] Start: 10-31-2021 End: 10-31-2021 ambulatory Tondra Mapus Other [employer] Other Start: 10-31-2021 Telephone encounter Tondra Mapus [facility] Start: 10-27-2021 End: 10-27-[address] [...] 07-24-2021 End: 07-24-2021 ambulatory Tondra Mapus Other [employer] Other Start: 07-24-2021 Telephone encounter Tondra Mapus [facility] Start: 07-17-2021 (DM) Diabetes Tondra Mapus [facility] Start: 07-17-2021 End: 07-17-2021 ambulatory Tondra Mapus Other [employer] Other Start: 06-19-2021 End: 06-19-2021 ambulatory Shannon Colelillian Other [employer] Other Start: 06-19-2021 Telephone encounter Shannon Escobar [facility] Start: 06-06-2021 End: 06-06-2021 ambulatory Kingsley Latisha Other [employer] Other Start: 06-06-2021 Office outpatient visit 25 minutes Kingsley Altisha [facility] Start: 05-22-2021 End: 05-22-2021 ambulatory Tondra Mapus Other [facility] Other Start: 05-22-2021 Telephone encounter Tondra Mapus [facility] Start: 05-16-2021 End: 05-16-2021 ambulatory Tondra Mapus Other [facility] Other Start: 05-16-2021 Telephone encounter Tondra Mapus [facility] Start: 04-10-2021 (DM) Diabetes Tondra Mapus [facility] Start: 04-10-2021 End: 04-10-2021 ambulatory Tondra Mapus Other [employer] Other Start: 04-10-2021 Telephone encounter Arlen Kwong [facility] Start: 02-14-2021 End: 02-14-2021 ambulatory Kingsley Latisha Other [employer] Other Start: 02-14-2021 Patient encounter procedure Kingsley Latisha [facility] Start: 02-14-2021 Telephone encounter Arlen Kwong [facility] Start: 01-03-2021 (DM) Diabetes Arlen Kwong [facility] Start: 10-14-2018 End: 10-15-2018 Patient encounter procedure PINKY BISHOP Facility:[facility] Start: 02-24-2018 End: 02-25-2018 Evaluation and management of inpatient [facility] Procedures Date Procedure Procedure Detail Performing Clinician [...] COR ART WITH DRUG-ELUT INTRA, PERC APPROACH PINKY BISHOP Start: 02-24-2018 FLUOROSCOPY OF L INT MAMM GRAFT USING OTH CONTRAST PINKY BISHOP Start: 02-24-2018 FLUOROSCOPY OF MULT COR A [...] Start: 04-01-2012 Percutaneous transluminal coronary angioplasty Gagan NILL Start: 04-01-2009 Cardiac catheterization Gagan NILL Start: 04-01-2007 Percutaneous transluminal coronary angioplasty Gagan NILL Start: 04-01-2004 Cardiac catheterization Gagan NILL Start: 04-01-2002 Cardiac catheterization Gagan MORGANL Start: 04-01-1991 Coronary artery bypass graft Gagan MORGAN L Percutaneous coronary intervention Gagan MORGANL Comment on above: stent/vein graft Plan of Treatment Date Care Activity Detail Author Start: 10-26-2023 DIABETES SCREEN DIABETES SCREEN [facility] Start: 01-17-[address] [facility] Start: 01-17-2022 Radionuclide myocard ial perfusion stress study NM rachel perf SPECT rest & str [facility] Start: 01-17-2022 Referral to cardiac rehabilitation program [facility] Start: 01-16-2022 Hospital admission [facility] Start: 01-15-2022 Hospital admission [facility] Start: 11-30-2021 Influenza vaccination INFLUENZA (#1) [facility] Start: 10-24-2021 End: 12-24-2021 CBC W Auto Differential panel - Blood CBC + DIFF Lab Routine Monoclonal gammopathy Expected: 10/24/2021, Expires: 12/24/2021 [facility] Work Phone: Comment on above: Expected: 10/24/2021 , Expires: 12/24/2021 Start: 04-25-2021 Adult depression screening assessment DEPRESSION SCREENING [facility] Start: 04-01-2021 ADVANCE DIRECTIVE DISCUSSION ADVANCE DIRECTIVE DISCUSSION [facility] Start: 11-21-2020 COVID-19 VACCINE (3 - Booster for Pfizer series) COVID-19 VACCINE (3 - Booster for Pfizer series) [facility] Start: 11-07-2001 SHINGRIX VACCINE (1 of 2) SHINGRIX VACCINE (1 of 2) [facility] Start: 11-07-1996 COLOGUARD (FIT-DNA) COLOGUARD (FIT-D NA) [facility] Start: 11-07-1996 Colonoscopy COLONOSCOPY [facility] Start: 11-07-1996 COLORECTAL CANCER SCREENING COLORECTAL CANCER SCREENING [facility] Start: 11-07-[address] COLONOGRAPHY [facility] Start: 11-07-1996 FECAL OCCULT BLOOD FECAL OCCULT BLOO D [facility] Start: 11-07-1996 SIGMOIDOSCOPY SIGMOIDOSCOPY [facility] Start: 11-07-1986 LIPID SCREEN LIPID SCREEN [facility] Start: 11-07-1970 Urine microalbumin profile DTAP,TDAP,TD (1 - Tdap) [facility] Start: 11-07-1969 HEPATITIS C SCREENING HEPATITIS C SC REENING [facility] Start: 1950 ABDOMINAL AORTIC ANEURYSM SCREENING ABDOMINAL AORTIC ANEURYSM SCREENING [facility] Comprehensive metabo lic 2000 panel - Serum or Plasma [facility] Patient Education Low blood suga r in people with diabetes Diabetes and diet [facility] Work Phone: Patient referral [facility] Work Phone: [facility] Immunizations Immunization Date Immunization Notes Care Provider Fa amanda 12-13-2022 influenza, high dose seasonal, preservative-free Denita Chairez Other [employer] Other 12-13-2022 influenza virus vaccine, unspecified formulation DO Harley Crespo Work Phone: [facility] 12-15-2021 influenza virus vaccine, unspecified formulation DO Harley Crespo Work Phone: [facility] 12-15-2021 influenza, high dose seasonal, preservative-free Harley Crespo Other [employer] Other 02-21-2021 COVID-19 mRNA, Comirnaty (Pfizer) DO Harley Crespo Work Phone: [facility] 06-21-2020 COVID-19 Vaccine Pfi zer - Documentation Purposes Only Tondra Mapus Other [facility] 05-30-2020 COVID-19 Vaccine Pfi zer - Documentation Purposes Only Tondra Mapus Other [facility] 01-17-2018 pneumococcal polysaccharide vaccine, 23 valent Abdon Walker MD Work Phone: [facility] 01-17-2018 Seasonal trivalent influenza vaccine, adjuvanted, preservative free Abdon Walker MD Work Phone: [facility] 01-16-2017 influenza, high dose seasonal, preservative-free Abdon Walker MD Work Phone: [facility] 11-30-2016 influenza, injectabl e, quadrivalent, preservative free Abdon Walker MD Work Phone: [facility] 11-14-2016 pneumococcal conjuga te vaccine, 13 valent Abdon Walker MD Work Phone: [facility] 04-02-2016 pneumococcal polysaccharide vaccine, 23 valent Tondra Mapus Other [facility] 01-23-2012 influenza, seasonal, injectable Abdon Walker MD Work Phone: [facility] 12-13-2010 influenza, seasonal, injectable Abdon Walker MD Work Phone: [facility] 01-27-2009 novel [id number], preservative-free, injectable Abdon Walker MD Work Phone: [facility] 01-19-2008 influenza virus vaccine, whole virus Abdon Walker MD Work Phone: [facility] Payers Date Payer Category Payer Unknown MMO MMO MEDICARE SUPPLEMENT [id number] 2019-Present [phone] [address] [place] [address] Indemnity [id number] 2017 Self-pay [id number] 2017 Unknown [id number] 2017 Unknown [id number] 2016 Medicare MEDICARE MEDICAR E A AND B [id number] 2016-Present [phone] [address] [address] [place] [address] Medicare [id number] 1959 Medicare [id number] 1959 Unknown [id number] 1951 Unknown [id number] 2.16.840.1.453497.3.579.2.647 1950 Unknown [id number] 2.16.840.1.515785.3.579.2.647 1951 Unknown [id number] 2.16.840.1.049768.3.579.2.593 1951 Unknown [id number] 2.16.840.1.661093.3.579.2.593 1951 Unknown [id number] 2.16.840.1.688705.3.579.2.593 1951 Unknown [id number] 2.16.840.1.578565.3.579.2.593 1951 Unknown [id number] 2.16.840.1.436726.3.579.2.593 1951 Unknown [id number] 2.16.840.1.772972.3.579.2.593 1951 Unknown [id number] 2.16.840.1.290759.3.579.2.593 1951 Unknown [id number] 2.16.840.1.295425.3.579.2.593 1951 Unknown [id number] 2.16.840.1.737528.3.579.2.593 1951 Unknown [id number] 2.16.840.1.237048.3.579.2.593 1951 Unknown [id number] 2.16.840.1.293198.3.579.2.593 1951 Unknown [id number] 2.16.840.1.751132.3.579.2.593 1951 Unknown [id number] 2.16.840.1.697979.3.579.2.593 1951 Unknown [id number] 2.16.840.1.803180.3.579.2.593 1951 Unknown [id number] 2.16.840.1.807439.3.579.2.593 1951 Unknown [id number] 2.16.840.1.096329.3.579.2.593 1951 Unknown [id number] 2.16.840.1.143267.3.579.2.593 1950 Unknown [id number] 2.16.840.1.546906.3.579.2.593 Unknown [id number] Unknown [id number] 2.16.840.1.240184.3.579.2.531 Social History Date Type Detail Facility Unknown if ever smoked [facility] Other Sex Assigned At [facility] [employer] Other Start: 09-29-2021 End: 06-18-2023 Tobacco smoking status Ex-smoker (finding) [facility] [place] Tobacco smoking status Never [facility] Start: 07-23-2018 Tobacco use and exposure Smokeless tobacco non-user [facility] Start: 10-25-2020 Alcohol intake Ex-drinker (finding) [facility] Start: 1950 Sex Assigned At Not on file [facility] Start: 1950 Sex Assigned At Male F [facility] Medical Equipment Procedure Code Equipment Code [...] Facility 01-17-2022 Functional status Patient at Baseline [facility] Work Phone: 09-29-2021 Functional Status N/A [facility] [place] Mental Status Date Assessment Result Facility 01-17-2022 Cognitive function Cognitive Sta tus Patient at Baseline [facility] Work Phone: Clinical Notes 01-03-2021 to 05-07-2023 Note Date & Type Note Facility 05-07-2023 Note PR Cardiology Consul t Note Reason for visit: Complete heart block on event monitor, HFrEF 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%, atrial tachycardia 05/07/23 Patient is s/p BiV ICD. 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 patient has got good device threshold. he [...] and hypertension. He was recently admitted to [facility] for NSTEMI. Had inpatient stress test and heart cath. Denies SOB but still having chest pain and has taken nitroglycerin a few times for relief. Had CT chest last week s/p discharge. Cardiac catheterization revealed patent bypass grafts and worsening [place] vessel disease. Medications were adjusted. I had a conversation with his son also who mentions pt having bradycardia for ~1-2 months where HR was in 40's. It is unclear as to why he got the event monitor but this revealed presence of high degree AV block on 12/19/22 @9pm. Pt did not report syncope but [...] 75 mg ta (more content not included)... [facility] 04-30-2023 Evaluation note Encounter Date Diagnosis Assessment Notes Apr, Chronic HFrEF (heart failure with reduced ejection fraction) (ICD-10 - I50.22) [facility] Other 01-30-2024 NotePatient here for follow up echo. He is doing very well, as chest pain and palpitations have subsided. Taking bumex prn now and hasn't been swelling much. Denies SOB and lightheadedness. Review of Systems Musculoskeletal: Positive for arthritis, back pain, joint pain and myalgias. All other systems reviewed and are negative.[facility] 04-30-2023 NoteUT Cardiology Consult Note Reason [...] and hypertension. He was recently admitted to [facility] for NSTEMI. Had inpatient stress test and heart cath. Denies SOB but still having chest pain and has taken nitroglycerin a few times for relief. Had CT chest last week s/p discharge. Cardiac catheterization revealed patent bypass grafts and worsening [place] vessel disease. Medications were adjusted. I had [...] route. insulin detemir (Levemi (more content not included)...[facility]12-18-2023 NotePatient here for 2 week follow up per [address]. Bishop. Metoprolol was increased to 100mg to decrease atrial tachycardia. Still gets random chest pain and palpitations. Lightheadedness has been better and has resolved. Denies SOB. Review of Systems Cardiovascular: Positive for chest pain and palpitations. Musculoskeletal: Positive for arthritis, back pain, joint pain and myalgias. All other systems reviewed and are negative.[facility] 03-18-2023 NoteUT Cardiology Consult Note Reason [...] and hypertension. He was recently admitted to [facility] for NSTEMI. Had inpatient stress test and heart cath. Denies SOB but still having chest pain and has taken nitroglycerin a few times for relief. Had CT chest last week s/p discharge. Cardiac catheterization revealed patent bypass grafts and worsening [place] vessel disease. Medications were adjusted. I had [...] morning and at bedtim (more content not included)...[facility]12-12-2023 Evaluation note* Encounter Date Diagnosis Assessment [...] PAP-Jardiance was denied, pt given information on [facility] diabetes discount program instructed to apply order [...] hypertension material was printed on diony. Mar, long-term current use of insulin (ICD-10 - Z79.4) Mar, Hyperlipidemia (ICD-10 - E78.5) High cholesterol material was printed 05/2022 ldl 69- on statin. Mar, BMI 27.0-27.9,adult (ICD-10 - Z68.27) Eating healthy: tips to make it easier material was printed [facility] Other 12-07-2023 [facility] Note Chief Complaint: Patient here for follow up. Carotid US was done yesterday at [facility]. Says his HR has been elevated lately, around 119. Had his device interrogated a few days ago. Still has to take nitroglycerin at times for chest pain. HPI: Lani Lizama is a 72 y.o. male being seen in post hospital follow up Hospital course: And admitted to the hospital on 01/25 as a direct transfer from [facility], With worsening chest pain for [...] artery stenosis, Coronary artery disease, Diabetes mellitus ([facility]), Hyperlipidemia, Hypertension, PVD (peripheral vascular disease) ([facility]), and Third degree heart block ([facility]). Surgical History He has a past surgical [...] Disp: 180 tablet, Rfl: (more content not included)...[facility]11-21-2023 NotePatient seen for wound check s/p [...] 4-6 weeks. 5. No driving for 1 month.[facility]11-14-2023 NoteBiV- ICD UPGRADE & RV LEAD EXTRACTION PROCEDURE NOTE DATE OF PROCEDURE: 02/12/2023 PERFORMING PHYSICIAN: Dr. Kevin Arteaga BLOCK PAVER: Dr Jamie Dupree CONSENT: Patient LOCATION: EP Lab PROCEDURE PERFORMED: 1. Implantation of Biventricular ICD ([employer]). 2. Explantation of previously implanted pacemaker generator ([employer]). 3. RV pacing lead extraction. 4. [...] catheterization revealed patent bypass grafts and worsening [place] vessel disease. Event monitor revealed presence of [...] proceeded to place an LV lead. The [place] sheath was advanced, and EZ steer was used to cannulate the CS. There was difficulty in cannulating the CS. So I used an inner cannula and wire technique and this was still challenging. I then removed the [place] system and used a [employer] CS sheath over a 9F short sheath. [...] stable. COMPLICATIONS: None. IM (more content not included)...[facility]11-14-2023 NotePatient: Lani Lizama Procedure Information Date/Time: 02/12/23 1100 Procedure: Biventricular ICD upgrade - Upgrade PPM to Bi-V- possibly to AICD Location: [facility] UNIT AIDE TECH 1 / [facility] (Cath) Providers: Kevin Arteaga MD Clinical information reviewed: Allergies Meds Physical Exam Airway Mallampati: III Cardiovascular - normal exam Dental Pulmonary - normal exam Abdominal - normal exam Anesthesia Plan ASA 3 other (Conscious sedation) Anesthetic plan and risks discussed with patient. Use of blood products discussed with patient who consented to blood products. Plan discussed with attending. Additional [facility]20[facility]* Encounter Date Diagnosis Assessment Notes Treatment Notes Treatment Clinical Notes Jan, Chronic HFrEF (heart failure with reduced ejection fraction) (ICD-10 - I50.22) [facility] Other 11-03-2023 NoteUT Cardiology Consult Note Reason [...] and hypertension. He was recently admitted to [facility] for NSTEMI. Had inpatient stress test and heart cath. Denies SOB but still having chest pain and has taken nitroglycerin a few times for relief. Had CT chest last week s/p discharge. Cardiac catheterization revealed patent bypass grafts and worsening [place] vessel disease. Medications were adjusted. I had [...] tablet Take 1 tablet (more content not included)...[facility]10-30-2023 NoteOccupational Therapy Occupational Therapy Evaluation Patient Name: Lani Lizama : 1950 Today's Date: 01/28/2023 Time In: 1404 Time Out: 1444 Lani Lizama is a 72 y.o. male with Hx CAD s/p 4v CABG and multiple past stents to VG to OM branch. Last LHC 01/20 at [facility] found patent bypass grafts. , Chronic HFrEF,Carotid artery stenosis, PVD, HLD, Dm2, CKD III, COPD, BPH, anxiety, PVD: DISTAL AORTIC STENOSIS s/p INGOT SUPERVISOR/STENT 11/2016. Hme meds: ASA, Plavix, Coreg, Jardiance, Imdur 30, Lisinopril 2.5, Lovasatatin 40mg, protonix. Pt and son do not recall any other statins or reaction to statins. 01/25/23 transferred from [facility] for 2 months of worsening CP [...] first diagonal, SVG to OM --01/25/23 NSTEMI: [facility] 01/25: stable CAD (4/4 bypass grafts patent) [...] complication (CMS/HCC) AV block, 3rd degree (CMS/HCC) Age-related nuclear cataract of both eyes Blepharitis of upper and lower eyelids of both eyes Dry eyes 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 edema associated with type 1 diabetes mellitus (CMS/HCC) NSTEMI (non-ST elevated myocardial infarction) ([facility]/HCC) Acute on chronic systolic heart failure, NYHA class 3 (CMS/HCC) Reduced ejection fraction concurrent with and due to acute heart failure (CMS/HCC) Past Medical History: Diagnosis Date Carotid artery stenosis Coronary artery disease Diabetes mellitus (CMS/HCC) Hyperlipidemia Hypertension PVD (peripheral vascular disease) (CMS/HCC) Third degree heart block (CMS/HCC) Past Surgical History: Procedure Laterality Date CARDIAC [...] Level of Function Prior Function Level of [place]: Independent with ADLs and functional transfers, Independent with homemaking 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 , 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) Prior IADLs IADL History Homemaking Responsibilities: Yes [...] taking off regular lo (more content not included)...[facility]10-30-2023 NoteHospital Medicine Discharge Summary Final Discharge Diagnosis: NSTEMI (non-ST elevated myocardial infarction) (CMS/HCC) Non-ischemic cardiomyopathy with EF 10% Admission Diagnosis: NSTEMI (non-ST elevated myocardial infarction) (CMS/HCC) [I21.4] Hospital course: And admitted to the hospital on 01/25 as a direct transfer from [facility], With worsening chest pain for [...] 03/07/2023 9:00 AM Pinky Bishop MD MARCELINO Dudley [facility] Your medication list START taking these medications [...] Medications These medications were sent to [facility] [address] [place] [address] [address] [facility] [place] [address], [facility] [address] dapagliflozin propanediol 10 mg isosorbide mononitrate ER [...] 10*3/uL 141* 163 Chemistry: (more content not included)...[facility]10-30-[address] Arteaga is planning upgrade to BI-V ICD on as [facility]ptUn[facility]-2023 NoteUTP CARDIOLOGY INPATIENT PROGRESS NOTE Reason [...] -- -- 92 17 97 % -- 01/27/235 120/74 -- -- 80 17 98 % [...] MENJIVAR graft. There is (more content not included)...[facility]10-29-2023 NoteHoital Medicine Daily Progress Note - 01/27/2023 12:00 PM; Room: [facility] Admission: 01/25/2023 12:05 PM; Length of stay: 2 days THE HOSPITALIST TEAM PREFERS TO USE [employer] FOR COMMUNICATION 7AM-7PM. IF I DO NOT RESPOND WITHIN 15 MINUTES, PLEASE PAGE ME/CALL THROUGH THE PATIENT ASSESSMENT COORDINATOR. FROM 7PM-7AM, PLEASE PAGE [phone](COVR) Code Status: Full Code Discharge Destination: home [...] Principal Problem: NSTEMI (non-ST elevated myocardial infarction) ([facility]) Assessment and Plan NSTEMI coronary artery disease [...] for: PREALBUMIN, TSH, T3FREE, FREET4, CORTISOL, FEV1, QKH6PFX, DLCO, RVSP, HDL, LDL No results found for: [id number], IRON, TIBC, C3, C4, HARISH, CANCA, ASO, PSA, CEA, CA125, CA199, AFP, CA153 Imaging Cardiac catheterization PROCEDURE PHYSICIAN: Petar Foreman MD . Indications: Lani Lizama is a 72 y.o. male with prior complex cardiac history including bypass surgery and multiple stenting procedures in the past. Last cardiac catheterization in December 2021 at an outside institution showed patent bypass grafts. (more content not included)... [facility]10-29-2023 NoteUTP CARDIOLOGY INPATIENT PROGRESS NOTE Reason [...] Value Ventricular Rate 91 Atrial Rate 91 TX Interval 162 QRS DURATION 180 QT Interval 416 QTC CALCULATION(BAZETT) 511 P [place] 52 R-Irvine -41 T Wave [place] 109 Impression Atrial-sensed ventricular-paced rhythm Abnormal ECG [...] Due to suboptimal i (more content not included)...[facility]10-28-2023 NoteHospital Medicine Daily Progress Note - 01/26/2023 12:37 PM; Room: [address] [place] [address] Admission: 01/25/2023 12:05 PM; Length of stay: 1 days THE HOSPITALIST TEAM PREFERS TO USE [employer] CHAT FOR COMMUNICATION 7AM-7PM. IF I DO NOT RESPOND WITHIN 15 MINUTES, PLEASE PAGE ME/CALL THROUGH THE PATIENT ASSESSMENT COORDINATOR. FROM 7PM-7AM, PLEASE PAGE [phone](COVR) Code Status: Full Code Discharge Destination: home [...] Principal Problem: NSTEMI (non-ST elevated myocardial infarction) ([facility]) Assessment and Plan NSTEMI coronary artery disease [...] chloride, 50 mL/hr, Last Rate: 50 mL/hr (01/26/23426) Pertinent Investigations Hematology: Results from last 7 [...] for: PREALBUMIN, TSH, T3FREE, FREET4, CORTISOL, FEV1, IXJ0BJE, DLCO, RVSP, HDL, LDL No results found for: [id number], IRON, TIBC, C3, C4, HARISH, CANCA, ASO, [...] grafts. He presented to the [facility] with symptoms of worsening chest pain over the past 2 months. He was admitted and had rising cardiac troponin. He was referred (more content not included)...[facility]10-28-2023 NoteAdult Nutrition Assessment: Name: Lani Lizama Date: 1950 Date of Visit: 01/26/23 Admission Dx: NSTEMI (non-ST elevated myocardial infarction) ([facility]) [I21.4] Reason for assessment: high risk (HF) Information obtained from: patient, medical record, and nursing Past Medical History: Diagnosis Date Carotid artery stenosis Coronary artery disease Diabetes mellitus ([facility]) Hyperlipidemia Hypertension PVD (peripheral vascular disease) ([facility]) Third degree heart block ([facility]) Current Medications: ALPRAZolam, 0.5 mg, oral, TID [...] 120 (H) 01/26/2023 0507 BUN 27 (H) 01/26/2023 0530 CREATININE 1.77 (H) 01/26/2023 0530 NA 138 01/26/2023 0530 K 4.2 01/26/2023 0530 MG 2.0 10/15/2018 0556 HGB 14.4 01/26/2023 0530 WBC 8.72 01/26/2023 0530 Other Pertinent Labs: BNP 579 BG POC [...] compliance w/ MNT Contact the dietitian via [employer] chat -4P Saturday through Saturday or call extension [phone]. For weekends & holidays, the dietitian can be reached via pager [phone] from 9A-3P. Unable to respond to [employer] chat messages on Saturday & .[facility]10-28-2023 Note Attestation signed by Marry Avendano [...] Teaching Physician's Revisions: none Marry Avendano MD PR Cardiology Subjective Underwent heart cath yesterday. No [...] to eliquis on discharge Mickie Plaza MD Specialty Sales Consultant Pgy4 [facility]10-27-2023 NotePatient: Lani Mota Mega Procedure Information Date/Time: 01/25/23 1900 Procedures: Coronary angiography Coronary bypass graft study Location: [facility] UNIT AIDE TECH 3 / [facility] (Cath) Providers: Petar Foreman [...] products. Plan discussed with attending. Additional Equipment [facility]sL[facility]10-[facility]23 Note Hospital Medicine History and Physical 01/25/2023 10:53 AM THE HOSPITALIST TEAM PREFERS TO USE [employer] CHAT FOR COMMUNICATION 7AM-7PM. IF I DO NOT RESPOND WITHIN 15 MINUTES, PLEASE PAGE ME/CALL THROUGH THE PATIENT ASSESSMENT COORDINATOR. FROM 7PM-7AM, PLEASE PAGE [phone](COVR) Chief Complaint No chief complaint on file. History of Present Illness Lani Lizama is an 72 y.o. male who came from [facility] with NSTEMI and troponin of 7000. Patient has a history of CABG and 7 stents. For the last few weeks he has had intermittent chest pain that NTG does relieve. He did have a syncopal episode 3 weeks [address] He saw Dr. Bishop on 01/17 and his lisinopril was decreased. Yesterday he had severe chest pain and went to [place] ER. Patient was admitted to [place] and initial troponin was negative but then [...] edema associated with type 1 diabetes mellitus ([facility]) 10/12/2022 Gastroesophageal reflux disease 03/02/2022 Increased immunoglobulin 03/02/2022 Irritable bowel syndrome 03/02/2022 Mixed hyperlipidemia 03/02/2022 Nausea 03/02/2022 Overweight with body mass index (BMI) 25.0-29.9 03/02/2022 Right lower quadrant abdominal pain 03/02/2022 Spondylosis of lumbar spine 03/02/2022 Stage 3 chronic kidney disease ([facility]) 03/02/2022 Stenosis of abdominal aorta 03/02/2022 History of coronary artery bypass surgery 11/16/2019 Monoclonal gammopathy 07/28/2018 Type 2 diabetes mellitus without complication ([facility]) 06/03/2012 Coronary atherosclerosis 09/19/2011 Type 1 diabetes mellitus ([facility]) 09/19/2011 Essential hypertension 09/19/2011 AV block, 3rd degree ([facility]) 03/21/2022 Assessment and Plan NSTEMI - transfer from [place] - will continue heparin drip - cardiology has been consulted and plan to proceed with cardiac catherization today Syncope - patient did have his PM interrogated in [place] Acute renal failure on CKD 3b - in review of chart it looks like his Cr is 1.5 - 1.9 - 2.23 today at [place] - will gently hydrate 0.9NS @ 50 ml/hr Coronary atherosclerosis - CATH 09/2018 bypass grafts patent; mild ISR CATH 12/2021. 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 s/p INGOT SUPERVISOR/STENT 11/2016 Essential hypertension - on norvasc Hyperlipidemia [...] during this hospital stay (more content not included)...[facility]10-19-2023 [facility] Chief Complaint: Patient [...] artery stenosis, Coronary artery disease, Diabetes mellitus ([facility]), Hyperlipidemia, Hypertension, PVD (peripheral vascular disease) (CMS/HCC), [...] in the morning., Disp: , Rfl: HYDROcodone-acetaminophen ([place]) 5-325 mg tablet, TAKE 1 TABLET BY [...] 2+ bilaterally. No rash/sk (more content not included)...[facility] 01-07-2023 Evaluation note* Encounter Date Diagnosis [...] nurse practitioner for DM management. 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 Monitor LFTs and lipid profile. [facility] Other 10-06-2023 Evaluation note* Encounter Date Diagnosis Assessment Notes Treatment Notes Treatment Clinical Notes Dec, Ground glass opacity present on imaging of lung (ICD-10 - R91.8) CT: RUL, RML - 12/2022Dec, Pulmonary nodule (ICD-10 - R91.1) CT: 7mm RML nodule - 12/2022 [facility] Other 10-03-2023 Evaluation note* Encounter Date Diagnosis Assessment Notes Treatment Notes Treatment Clinical Notes Dec, Stage 3b chronic kidney disease (ICD-10 - N18.32) [facility] Other 10-02-2023 Evaluation note* Encounter Date Diagnosis [...] risk for cerebrovascular and cardiovascular disease. Dec, watermaster current use of insulin (ICD-10 - Z79.4) [...] be contributing - must discuss w/ Cardiology [facility] Other 07-11-2023 NotePatient here for 3 mo [...] light-headedness. All other systems reviewed and are negative.[facility] 10-09-2022 NoteCardiology Clinic Note Subjective Lani [...] and hypertension. He was recently admitted to [facility] for NSTEMI. Had inpatient stress test and heart cath. Denies SOB but still having chest pain and has taken nitroglycerin a few times for relief. Had CT chest last week s/p discharge. Cardiac catheterization revealed patent bypass grafts and worsening [place] vessel disease. Medications were adjusted. I had [...] Ischemic CMP. Update 05/02/[address] [facility] in December 2021 for what appears to be a non-ST elevation myocardial infarction. Cardiac catheterization revealed patent bypass grafts and worsening [place] vessel disease. Medications were adjusted. He states that he has had no chest pain for the past week. He described what sounded like typical angina with exertion. No orthopnea, no paroxysmal external dyspnea, no lower extremity edema. No claudication. He was admitted to [facility] in March for third-degree heart block and [...] in the morning., Disp: , Rfl: HYDROcodone-acetaminophen ([place]) 5-325 mg tablet, TAKE 1 TABLET BY MOUTH (more content not included)...[facility]07-03-2023 Evaluation note* Encounter Date Diagnosis Assessment Notes Treatment Notes Treatment Clinical Notes Sep, ASHD (arteriosclerotic heart disease) (ICD-10 - I25.10) [facility] Other 06-21-2023 Evaluation note* Encounter Date Diagnosis Assessment Notes Treatment Notes Treatment Clinical Notes Aug, ASHD (arteriosclerotic heart disease) (ICD-10 - I25.10) [facility] Other 06-02-2023 Evaluation note* Encounter Date Diagnosis [...] inserts to prevent callus formation.Fall precautions. Aug, watermaster (current) use of insulin (ICD-10 - Z79.4) [facility] Other 05-11-2023 Evaluation note* Encounter Date Diagnosis Assessment Notes Treatment Notes Treatment Clinical Notes July, Ground glass opacity present on imaging of lung (ICD-10 - R91.8) CT: RML,RUL infiltrate - 12/2021, CT: RML,RUL improved - 03/2022 CT: RML, RUL, GGO improved - 07/2022 [facility] Other 04-25-2023 NotePatient here for 4 week [...] light-headedness. All other systems reviewed and are negative.[facility] 07-24-2022 NoteCardiology Clinic Note Subjective Lani [...] and hypertension. He was recently admitted to [facility] for NSTEMI. Had inpatient stress test and heart cath. Denies SOB but still having chest pain and has taken nitroglycerin a few times for relief. Had CT chest last week s/p discharge. Cardiac catheterization revealed patent bypass grafts and worsening [place] vessel disease. Medications were adjusted. I had [...] Ischemic CMP. Update 05/02/[address] [facility] in December 2021 for what appears to be a non-ST elevation myocardial infarction. Cardiac catheterization revealed patent bypass grafts and worsening [place] vessel disease. Medications were adjusted. He states that he has had no chest pain for the past week. He described what sounded like typical angina with exertion. No orthopnea, no paroxysmal external dyspnea, no lower extremity edema. No claudication. He was admitted to [facility] in March for third-degree heart block and [...] mg 24 hr tablet, (more content not included)...[facility]04-03-2023 Evaluation note* Encounter Date Diagnosis Assessment [...] D and PTH. Advised low phosphorus diet. [facility] Other 03-30-2023 Evaluation note* Encounter Date Diagnosis [...] are reviewed at the office visit. May, watermaster (current) use of insulin (ICD-10 - Z79.4) [...] (ICD-10 - Z12.5) Yearly PSA and ABDELRAHMAN [facility] Other 03-28-2023 Evaluation note* Encounter Date Diagnosis [...] 2. Blood glucose levels stable. According to [employer] Times cgm download 06/13/2022- 3: Average glucose 190. [...] of ozempic comes in. Recommend he contact guteirrez to check on status of order- phone [...] hypertension material was printed on [employer]. May, watermaster current use of insulin (ICD-10 - Z79.4) May, Hyperlipidemia (ICD-10 - E78.5) High cholesterol material was printed 05/2022 ldl 69- on statin. May, BMI 27.0-27.9,adult (ICD-10 - Z68.27) Eating healthy: tips to make it easier material was printed [facility] Other 03-27-2023 NoteCardiology Clinic Note Subjective Lani [...] and hypertension. He was recently admitted to [facility] for NSTEMI. Had inpatient stress test and heart cath. Denies SOB but still having chest pain and has taken nitroglycerin a few times for relief. Had CT chest last week s/p discharge. Cardiac catheterization revealed patent bypass grafts and worsening [place] vessel disease. Medications were adjusted. I had [...] Ischemic CMP. Update 05/02/[address] [facility] in December 2021 for what appears to be a non-ST elevation myocardial infarction. Cardiac catheterization revealed patent bypass grafts and worsening [place] vessel disease. Medications were adjusted. He states that he has had no chest pain for the past week. He described what sounded like typical angina with exertion. No orthopnea, no paroxysmal external dyspnea, no lower extremity edema. No claudication. He was admitted to [facility] in March for third-degree heart block and [...] capsule, Take 1 capsu (more content not included)...[facility]03-27-2023 NotePatient here c/o chest pressure with [...] light-headedness. All other systems reviewed and are negative.[facility] 05-26-2022 Evaluation note* Encounter Date Diagnosis Assessment Notes Treatment Notes Treatment Clinical Notes May, Abnormality of lung on CXR (ICD-10 - R91.8) [facility] Other 12-20-2022 Evaluation note* Encounter Date Diagnosis [...] 2. Blood glucose levels stable. According to [employer] Times cgm download 03/07/2022-03/20/20 22: Average glucose 144. Above 250-0%, >180- 15%, 70-180-85%, <70-0%, <54-0%. CV 24.3%. Reviewed download with pt, no incidence of hypoglcyemia noted. Glucose rise between 12-6pm. D/t current shortage of ozempic, recommend pt reduce dose to 0.5mg once weekly until shipment recieved from [facility], then increase to 1mg once [...] hypertension material was printed on [employer]. Mar, long-term current use of insulin (ICD-10 - Z79.4) Mar, Hyperlipidemia (ICD-10 - E78.5) High cholesterol material was printed 06/2021 ldl 48- on statin. Mar, BMI 26.0-26.9,adult (ICD-10 - Z68.26) Eating healthy: tips to make it easier material was printed 9 pound weight loss from last visit, continue with weight loss efforts [facility] Other 11-10-2022 Evaluation note* Encounter Date Diagnosis Assessment Notes Treatment Notes Treatment Clinical Notes Jan, Diabetes mellitus with chronic kidney disease (ICD-10 - E11.22) [facility] Other 10-19-2022 Discharge summary Author Gagan Shahid 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 Cardiac catheterization was undergone on 01/16/2022 showing [...] levels as before. DISCHARGE INSTRUCTIONS FOR CARDIAC UNIT AIDE TECH PHONE NUMBER OF YOUR PHYSICIAN: [phone] PROCEDURE: Heart Cath The following instructions have [...] cold, numb, blue or white, call the kosher dietary service manager immediately. 4. ACTIVITY: You are advised to [...] bottle, follow the instructions on the bottle. [facility] is not responsible for incorrect prescription [...] call to reschedule if needed.) Porfirio Fair, MACHINE FEEDER [Nurse Practitioner] - 01/24/22 4:00 pm Documented By: Gagan Shahid DO 01/17/22 14 57 Signed By: <Electronically signed by Gagan Shahid, > 01/17/[address] [facility] Work Phone: [phone]) 714-848410-19-2022 Progress note Author Luis Alfredo Borges [facility] January 17, 2022 11:47am Note Date/Time January 17, 2022 1 1:47am [facility] [address] [place] [address] Cardiology Progress Note Signed Patient: Lani Lizama MR#: [id number] : 1950 Acct:[id number] Age/Sex: 71 / M Adm Date: 2 Loc: Room: [address] [place] [address] Type: ADM IN Attending Dr: Gagan Shahid [...] is also notable worsening of the patient's [place] occlusive coronaryheart disease particularly in the microcirculation [...] daily 3. Patient does have a primary kosher dietary service manager near his home in [place]. We willschedule him 1 follow-up visit in [facility] for left wrist check and also for counseling and reinforcement/referral to phase 2 monitored cardiac rehabilitation which the patient desires to perform in [place]. 4. Instructed the patient that he can [...] Documented By: Luis Alfredo Borges MD 01/17/22 1148 Signed By: <Electronically signed by Luis Alfredo Borges MD> 01/17/22 114[address] [facility] Work Phone: 1(112) 388-854210-18-2022 Progress note Author Gagan Shahid [facility] January 16, 2022 4:09pm Note Date/Time January 16, 2022 4 :09pm [facility] [address] [place] [address] Hospitalist Progress Note Signed Patient: Lani Lizama MR#: [id number] : 1950 Acct:[id number] Age/Sex: 71 / M Adm Date: 2 Loc: 3T Room: [address] [place] [address] Type: ADM IN Attending Dr: Gagan Shahid [...] 09:00 01/16/22 08:49 Aspirin 81 Mg Tablet.Dr PO 01/16/23 08:59 81 mg DAILY RICARDA [...] signed by Gagan Shahid DO> 01/16/[address] [facility] Work Phone: [phone] 237-937710-18-[address] [facility] Consult note Author Luis Alfredo Borges [facility] January 16, 2022 10:24am Note Date/Time January 16, 2022 1 0:24am [facility] [address] [place] [address] Cardiology Consult Note Signed Patient: Lani Lizama MR#: [id number] : 1950 Acct:[id number] Age/Sex: 71 / M Adm Date: 2 Loc: Room: [address] [place] [address] Type: ADM IN Attending Dr: Gagan Shahid [...] well as history of PCI done here [facility] per Dr. Saldaña in May 2020 [...] EMS and was taken to [facility] emergency department. There the patient [...] Lymph # (Auto) 1.0 1.6 (1.00-4.8) x10E3/uL [place] # (Auto) 0.4 0.8 (0.0-0.8) x10E3/uL Eos [...] nonspecific abnormality, ST segment, and/or T wave NC, pacemaker, normal Normal tracing: no change compared [...] by Luis Alfredo Borges MD> 01/16/[address] [facility] Work Phone: [phone]) 898-617810-17-2022 History and physical note Author Gagan Shahid [facility] January 15, 2022 6:56pm Note Date/Time January 15, 2022 6 :02pm [facility] [address] [place] [address] Hospitalist H&P Signed Patient: Lani Lizama MR#: [id number] : 1950 Acct:[id number] Age/Sex: 71 / M Adm Date: 2 Loc: Room: [address] [place] [address] Type: ADM IN Attending Dr: Gagan Shahid DO Copies to: DO Gagan Hudson DO~ HPI DATE OF EXAMINATION: 01/15/22 CHIEF [...] need for cardiovascular evaluation he was transferredto [facility] for further management and cardiology consultation. [...] negative unless noted below or [facility]?: Yes Medical History (Updated 07/10/21 @ 10:30 by Shannon Escobar, DO) Congestive heart failure (CHF) COVID-19 DM2 [...] % (Auto) 13.8 % (.) 01/15/22 15:00 [place] % (Auto) 6.1 % (.) 01/15/22 15:00 Eos % (Auto) 0.9 % (.) 01/15/22 15:00 Baso % (Auto) 0.5 % (.) 01/15/22 15:00 Neut # (Auto) 5.6 x10E3/uL (1.8-7.7) 01/15/22 15:00 Lymph # (Auto) 1.0 x10E3/uL (1.00-4.8) 01/15/22 15:00 [place] # (Auto) 0.4 x10E3/uL (0.0-0.8) 01/15/22 15:00 [...] signed by Gagan Shahid DO> 01/15/22 18[address] [facility] Work Phone: 1(756) 642-206009-19-2022 Evaluation note* Encounter Date Diagnosis Assessment Notes [...] Blood glucose levels above improved. According to [place] cgm download 12/05/2021- 2: Average glucose 119. [...] hypertension material was printed on [employer]. Nov, watermaster current use of insulin (ICD-10 - Z79.4) Nov, Hyperlipidemia (ICD-10 - E78.5) High cholesterol material was printed 06/2021 ldl 48- on statin. Nov, BMI 27.0-27.9,adult (ICD-10 - Z68.27) Eating healthy: tips to make it easier material was printed 22 pound weight loss from last visit, continue with weight loss efforts [facility] Other [id number] Miscellaneous Notes* Telephone Encounter - Vee Day - 10/20/2021 9:42 AM EDT New CBC order. Vee Day [facility] NoteChief Complaint consultation for cholelithiasis [...] RLQ ASHD (arteriosclerotic heart disease) Atheroscler of [place] artery of both legs with intermit claudication BMI 28.0-28.9,adult BPH associated with nocturia Cholelithiasis Controlled diabetes mellitus with diabetic polyneuropathy, with long-term current use of insulin Diabetic retinopathy Elevated serum immunoglobulin free light chains GERD (gastroesophageal reflux disease) IBS (irritable bowel syndrome) Lumbar spondylosis MGUS (monoclonal gammopathy of unknown significance) Mixed hyperlipidemia Nausea Obesi (more content not included)...[facility]: Result Comment: Electronically Signed By: FRANKIE LEMUS, Gagan Bal\Date and Time Signed: 10/17/21 12:19 [id number] Evaluation note* Encounter Date Diagnosis Assessment Notes [...] Blood glucose levels above improved. According to [employer] Times cgm download 07/04/2021-07/17/2021 : Average glucose 146. [...] hypertension material was printed on [employer]. Jun, long-term current use of insulin (ICD-10 - Z79.4) Jun, BMI 30.0-30.9,adult (ICD-10 - Z68.30) Eating healthy: tips to make it easier material was printed see above Jun, Bradycardia (ICD-10 - R00.1) asymptomatic- f/u with cardiology has upcoming apt. If symptomatic i.e. light headed notify sooner [facility] Other 03-21-2022 Evaluation note* Encounter Date Diagnosis Assessment Notes Treatment Notes Treatment Clinical Notes May, Gastro-esophageal reflux disease with esophagitis, without bleeding (ICD-10 - K21.00) [facility] Other 03-08-2022 Evaluation note* Encounter Date Diagnosis [...] His MBD parameters are within the goal. [facility] Other 02-21-2022 Evaluation note* Encounter Date Diagnosis Assessment Notes Treatment Notes Treatment Clinical Notes May, Diabetes mellitus with chronic kidney disease (ICD-10 - E11.22) [facility] Other 01-10-2022 Evaluation note* Encounter Date Diagnosis Assessment Notes Treatment Notes Treatment Clinical Notes Apr, Type 2 diabetes mellitus with hyperglycemia (ICD-10 - E11.65) [facility] Other 01-10-2022 Evaluation note* Encounter Date Diagnosis [...] Blood glucose levels above improved. According to [employer] Times cgm download 03/28/2021-04/10/19 22: Average glucose 167. [...] was also given rx assist paperwork for [facility] if he does not qualify for BI/jardiance. Ozempic will increase to 1mg once weekly. Apr, Hyperlipidemia (ICD-10 - E78.5) High cholesterol material was printed 07/2020 ldl 64 trig 207- on statin. Apr, HTN (hypertension) (ICD-10 - I10) About hypertension material was printed on diony. Apr, long-term current use of insulin (ICD-10 - Z79.4) Apr, BMI 30.0-30.9,adult (ICD-10 - Z68.30) Eating healthy: tips to make it easier material was printed see above [facility] Other 11-16-2021 Evaluation note* Encounter Date Diagnosis Assessment Notes Treatment Notes Treatment Clinical Notes Jan, Diabetes mellitus with chronic kidney disease (ICD-10 - E11.22) His blood sugars are within the acceptable range. I have advised him to continue to follow with [facility] for DM management. He takes Lisinopril and [...] His MBD parameters are within the goal. [facility] Other 10-05-2021 Evaluation note* Encounter Date Diagnosis [...] above target with increased variability. According to The [employer] Times cgm download 12/07/2020-01/03/2021: Average glucose 135. Above [...] hypertension material was printed on diony. Dec, watermaster current use of insulin (ICD-10 - Z79.4) Dec, BMI 31.0-31.9,adult (ICD-10 - Z68.31) Eating healthy: tips to make it easier material was printed 12 pound weight loss from last visit, continue with weight loss efforts Dec, Bradycardia (ICD-10 - R00.1) Pt asymptomatic. Notified kosher dietary service manager Dr. Velazquez. Pt has apt on Saturday next week. [facility] Other Evaluation + Plan note No data available for this section General Surgery [place] Evaluation noteNo InformationNort [facility] Other Evaluation note* Diagnosis Monoclonal gammopathy- Primary Monoclonal paraproteinemia [facility] Diagnosis Onset Date Resolution Status Non-ST elevation myocardial infarction (NSTEMI), initial care episode acute [facility] Work Phone: Evalubhfoj noteNo assessment information available [facility] Work Phone: evaluxfntq note* Diagnosis Onset Date Resolution Status BMI 26.0-26.9,adult acute Dietary counseling and surveillance acute DM2 (diabetes mellitus, type 2) acute HLD (hyperlipidemia) acute HTN (hypertension) acute [facility] Work Phone: Hisaotm general Narrative - Reported* Type Description Date [...] 11-25-16 Hospitalization History HEART STENT PLACED 03-20 [facility] Other History general Narrative - ReportedNortStremor Other Hiswkxj general Narrative - Reported* Type Description Date [...] 11-25-16 Hospitalization History HEART STENT PLACED 03-20 [facility] Other [email or web address] general Narrative - Reported* Type Description Date [...] 11-25-16 Hospitalization History HEART STENT PLACED 03-20 [facility] Other [facility] general Narrative - Reported* Type Description Date [...] 11-25-16 Hospitalization History HEART STENT PLACED 03-20 [facility] Other History general Narrative - Reported* Type [...] STENT PLACED 03-20 Hospitalization History SEE ABOVE [facility] Other History general Narrative - ReportedNortStremor Other History general Narrative - Reported* Type [...] STENT PLACED 03-20 Hospitalization History SEE ABOVE [facility] Other History general Narrative - Reported* Type [...] STENT PLACED 03-20 Hospitalization History SEE ABOVE [facility] Other History general Narrative - Reported* Type [...] STENT PLACED 03-20 Hospitalization History SEE ABOVE [facility] Other History general Narrative - Reported* Type [...] History GGO and Pulmonary nodules Medical History [place] 01/21 Medical History Defibrilator 02/21 Surgical History [...] 03-20 Hospitalization History SEE ABOVE Hospitalization History [place] 01/21 [facility] Other Hospital Discharge instructions No data available for this section General Surgery [facility] Discharge instructions Additional Instructions Monitor glucose levels as before. DISCHARGE INSTRUCTIONS FOR CARDIAC UNIT AIDE TECH PHONE NUMBER OF YOUR PHYSICIAN: [phone] PROCEDURE: Heart Cath The following instructions have [...] cold, numb, blue or white, call the kosher dietary service manager immediately. 4. ACTIVITY: You are advised to [...] bottle, follow the instructions on the bottle. [facility] is not responsible for incorrect prescription information provided by the patient during their visit. Do not stop your medications without consulting your health care provider. Please take the list with you to your next doctor's appointment. [facility] Work Phone: Progress note No data available for this section General Surgery [place] Summary Purpose Family History Relationship Condition Age at Onset Recorded Date/T maximo Not Specified Heart disease Unknown Relationship Condition Age at Onset Recorded Date/T maximo brother Malignant neoplasm Unknown Diabetes mellitus Unknown Heart disease Unknown daughter Crohn's disease Unknown father Unknown Malignant neoplasm Unknown family member Unknown Not Specified Diabetes mellitus Unknown Unknown Advance Directives Advance Directive Response Recorded Date/ Time Advance Directives No September 19 8:18am Advance Directive Response Recorded Date/ Time Advance Directives No September 19 7:18am Chief Complaint and Reason for Visit Chief Complaint E11.65 non stemi Reason for Visit Non-ST elevation rachel cardial infarction (NSTEMI), initial care episode Chief Complaint Dm E11.65 4 Month Follow Up Chief Complaint 4 Month Follow Up 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 Reason for Visit BMI 26.0-26.9,adult Dietary counseling and surveillance DM2 (diabetes mellitus, type 2) HLD (hyperlipidemia) HTN (hypertension) Additional Source Comments (unrecognized sect ion and content) No Status Records FoundNo Status Records FoundNo Status Records FoundNo Status Records FoundNo Status Records FoundNo Status Records Found INFORMATION SOURCE (unrecogn ized section and content) DATE CREATED AUTHOR 11/29/2018 [facility] DATE CREATED AUTHOR AUTHOR'S ORGANIZ ATION 10/20/2021 [facility] DATE CREATED AUTHOR AUTHOR'S ORGANIZ ATION 10/25/2021 [facility] DATE CREATED AUTHOR AUTHOR'S ORGANIZ ATION 08/13/2022 [facility] DATE CREATED AUTHOR AUTHOR'S ORGANIZ ATION 05/08/2023 [facility] DATE CREATED AUTHOR AUTHOR'S ORGANIZ ATION 05/16/2023 [facility] REASON FOR VISIT (unrecogniz ed section and content) Reason Comments Lab Orders Care Team (unrecognized sect ion and content) 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 Relationship Specialty Start Date End Date Harley Crespo, [address] [facility] [place] [address] PCP - General Internal Medicine 07/18/18 Team Status: Inactive Member Role Status Dates Harley Crespo DO Primary Care Provider Active Gagan Shahid DO Admit Provider, Attending Provider Active Team Status: Active Member Role Status Dates Harley Crespo DO Primary Care Provider Active Ryan Garrett APRN ASSISTANT WAREHOUSE MANAGER-C Active Valerie Gallegos PA-C Active Arlen Kwong APRN Attending Provider Active Team Status: Active Member Role Status Dates Harley Crespo DO Primary Care Provider Active Team Status: Inactive Member Role Status Dates Arlen Kwong APRN Attending Provider Active Start: March 12, 2023 End: March 12, 2023 Team Status: Inactive Member Role Status Dates Harley Crespo DO Primary Care Provider Active Start: March 12, 2023 End: March 12, 2023 Ryan Garrett APRN ASSISTANT WAREHOUSE MANAGERNatividad Active Sta rt: March 12, 2023 End: March 12, 2023 Valerie Gallegos PA-C Active St art: March 12, 2023 End: March 12, 2023 Arlen Kwong APRN Attending Provider Active Start: March 12, 2023 End: March 12, 2023 Team Status: Inactive Member Role Status Dates Harley Crespo DO Attending Provider Active Sta rt: May 03, 2023 End: May 03, 2023 Team Status: Active Member Role Status Dates Harley Crespo DO Primary Care Provider Active Start: June 13, 2023 Arlen Kwong APRN Attending Provider Active Start: June 13, 2023 Team Status: Inactive Member Role Status Dates Harley Crespo DO Primary Care Provider Active Start: June 18, 2023 End: June 18, 2023 Arlen Kwong APRN Attending Provider Active Start: June 18, 2023 End: June 18, 2023 Source Comments (unrecognize d section and content) In the event this informatio n is protected by the Federal Confidentiality of Alcohol and Drug Abuse Patient Records regulations: The Federal rules restrict any use of the information to criminally investigate or prosecute any alcohol or drug abuse patient.[facility] Goals (unrecognized section and content) [...] BE BASED ON THE PRIMARY CLINICAL RECORDS. [employer] provides no warranty or guarantee of the accuracy or completeness of information in this document.
[2023-06-24 08:42] LABS: Protein Creatinine Ratio Urine 0.19; Total Protein Urine Random 11.5 mg/dL (<=11.9)
[2023-06-24 09:00] LABS: Hematocrit 46.2 % (42.0-54.0); Hemoglobin 14.5 g/dL (14.0-18.0); Mean Corpuscular HGB Conc 31.4 g/dL (29.9-35.2); Mean Corpuscular Hemoglobin 28.5 pg (25.9-34.0); Mean Corpuscular Volume 90.8 fL (80.0-94.0); Mean Platelet Volume 10.2 fL (9.5-13.5); Platelet Count 178 10^3/uL (150-450); Red Blood Count 5.09 10^6/uL (4.70-6.10); Red Cell Distribution Width 14.6 % (11.0-15.0); White Blood Count 9.6 10^3/uL (4.0-11.0)
[2023-06-24 09:03] LABS: Anion Gap 15.1; Calcium 9.2 mg/dL (8.5-10.1); Carbon Dioxide 25.4 mmol/L (21.0-32.0); Chloride 106 mmol/L (98-107); Estimated GFR (African America 47 (>=60); Estimated GFR (Non-African Ame 38 (>=60); Glucose 212 mg/dL (74-106); Magnesium 2.1 mg/dL (1.8-2.4); Phosphorus 3.6 mg/dL (2.6-4.7); Potassium 4.5 mmol/L (3.5-5.1); Sodium 142 mmol/L (136-145); Uric Acid 4.3 mg/dL (3.5-7.2)
[2023-06-25 15:09] LABS: PTH, Intact 48 pg/mL (15-65)
== END 2023-06-24 07:34 | disposition home or self-care (01) ==
LOC: LAB 07:36
PROVIDERS: PCP Internal Medicine; Visit Provider Internal Medicine
DX: N18.32 Chronic kidney disease, stage 3b (principal); E11.22 Type 2 diabetes mellitus with diabetic chronic kidney disease; I12.9 Hypertensive chronic kidney disease with stage 1 through stage 4 chronic kidney disease, or unspecified chronic kidney disease; N25.81 Secondary hyperparathyroidism of renal origin; E78.5 Hyperlipidemia, unspecified
CPT/HCPCS: 36415; 80069; 82306; 82570; 83735; 83970; 84156; 84550; 85027

== ENCOUNTER 2023-07-22 08:30 | Outpatient (OUT) | payer MEDICARE, OTHER, SELFPAY ==
--- NOTE | 2023-07-22 09:08 | CT_ITS ---
[address] [address] Patient Name: LANI LIZAMA MRN: [id number] date: 1950 Sex: M Assigned Patient Location: CT Current Patient Location: CT Accession/Order Number: [id number] Exam Date: 07/22/2023 09:03 Report Date: 07/22/2023 11:51 At the request of: DEVEN CRESPO Procedure: CT chest wo con EXAMINATION: CT chest wo con HISTORY: Lung Nodule, Ground Glass Opacity On Lung Imaging COMPARISON: 02/13/2023, 01/04/2023, 08/09/2022, 03/02/2022 TECHNIQUE: Multi-planar CT images were created with IV contrast. Axial, Coronal, and Sagittal images. Dose reduction techniques were achieved by using automated exposure control and/or adjustment of mA and/or kV according to patient size and/or use of iterative reconstruction technique. FINDINGS: LUNGS: Moderate diffuse peribronchial thickening, stable. Stable area of groundglass attenuation in the right upper lobe with a focal noncalcified 6.5 mm solid nodule on axial image 51. No new parenchymal opacity nodule or mass is observed. PLEURA: No mass, effusion, or pneumothorax. VASCULATURE: No abnormality. MIKE: No mass or adenopathy. MEDIASTINUM: Left pacemaker CARDIAC: No enlargement or pericardial effusion. Extensive coronary atherosclerosis AORTA: No aortic aneurysm. Mild to moderate atherosclerosis CHEST WALL: No mass or axillary adenopathy. BONES: No bone lesion or fracture. Moderate diffuse degenerative spondylosis LIMITED ABDOMEN: Cholelithiasis without evidence of cholecystitis in the visualized portions of the gallbladder OTHER: Negative. CT/CT chest wo con IMPRESSION: Stable area of groundglass infiltrates in 6 mm solid nodule in the right upper lobe. Given the stability over the course of 2 years, findings are consistent with benign process. I favor chronic scarring Electronically authenticated by: SHANNON LANDIS Date: 07/22/2023 11:51
== END 2023-07-22 08:31 | disposition home or self-care (01) ==
LOC: CT 08:30
PROVIDERS: PCP Internal Medicine; Visit Provider Internal Medicine
DX: R91.1 Solitary pulmonary nodule (principal); R91.8 Other nonspecific abnormal finding of lung field
CPT/HCPCS: 71250

== ENCOUNTER 2023-08-27 09:50 | Outpatient (OUT) | payer MEDICARE, OTHER, SELFPAY ==
--- OUTSIDE RECORDS SUMMARY | 2023-08-27 10:12 | XMS_ITS | CCD ---
Author Organization [facility] Care Team Providers Care Spray Machine Loader Name Role Phone ELTAHAWY, EHAB A Admitting Unavailable ELCANDIDO, EHAB A Attending Unavailable HARLEY CRESPO Referring Unavailable HARLEY CRESPO Primary Care Unavailable ELTAHAWNETO OsorioAB Nakul Surgeon Unavailable CA Procedure Practitioner Unavailab le ELTAHAWJo, PINKY Mota Admitting Unavailable ELCANDIDO, PINKY Mota Attending Unavailable HARLEY CRESPO Referring Unavailable HARLEY CRESPO Primary Care Unavailable Arlen Kwong Unavailable Kingsley Good Unavailable Shannon Escobar Unavailable HARLEY CRESPO Primary Care Physician [phone] Harley Crespo DO Primary Care Provider DO Harley Crespo Primary Care Provider [phone] JULY Kwong Attending Provider [phone] DO Gagan Shahid Admit Provider DO Gagan Shahid Attending Provider Harley Crespo Unavailable DR PINKY BISHOP Consulting Unavailable CHERIE, DR CARVALHO Primary Care Unavailable ELTAHAWJo, DR LOWE Attending Unavailable ELTAHAWJo, DR LOWE Admitting Unavailable VLAD, DR PARUL Sanchez Procedure Practitioner Unavaila ble NIDA ., DR OBDULIO Cisneros Attending Unavailable ALVA ., DR OBDULIO Cisneros Admitting Unavailable VLAD, DR PARUL Sanchez Consulting Unavailable CHERIE, DR CARVALHO Primary Care Unavailable NIDA ., DR OBDULIO Cisneros Consulting Unavailable YOLA, JASPAL Consulting Unavailable CHERIE, DR CARVALHO Admitting Unavailable CHERIE, DR CARVALHO Attending Unavailable BALL, DR CARVALHO Primary Care Unavailable BALL, DR CARVALHO Consulting Unavailable ZIEBER, DR HIGINIO Sanchez Consulting Unavailable ZIEBER, DR HIGINIO Sanchez [...] Care Unavailable MAPUS, ARLEN Attending Unavailable MAPUS, ARLEN Admitting Unavailable WEST, [...] BARAZI, LAILA Attending Unavailable HOYDELTA Referring Unavailable PEDRO, ABIEL Admitting Unavailable ALURA, HANI Attending Unavailable PEPE, TIN Referring Unavailable BARAZI, LAILA Attending Unavailable PEPE, TIN Referring Unavailable ELTAHAWY, NETOAB Attending Unavailable JENNI, KEVIN Referring Unavailable JENNI, KEVIN Referring Unavailable JENNI, KEVIN Referring Unavailable WITHPARUL, DEISY Attending Unavailable WITHPARUL, DEISY Attending Unavailable JENNI, KEVIN Referring Unavailable JENNI, KEVIN Referring Unavailable JENNI, KEVIN Attending Unavailable RODGER, DEISY Attending Unavailable DO Harley Crespo Primary Care Provider JULY Kwong Attending Provider Arlen Kwong Attending Unavailable Arlen Kwong Admitting Unavailable Harley Crespo Primary Care Unavailable Allergies Allergy Classification Reported Allergen(s) Allergy Type Date of Onset Reaction(s) Facility (1 source) [id number]; Translations: [Unknown] Propensity to adverse reactions (disorder) 9 [facility] Medications Current Medications Medication Drug [...] oral tablet (20 sources) Benzodiazepine Start: 06-22-2020 End: 08-06-2023 take 0.5 mg by mouth three times daily Alprazolam Active 0.5 MG PO Three times daily August 06, 2023 2:14pm Comment on above: Take 0.5 mg by [...] MG PO Daily June 22, 2020 4:21am cholecalciferol 0.025 mg oral capsule (6 sources) Vitamin D Start: take 25 ug by mouth once daily Cholecalciferol (Vitamin D3) Active 25 MCG PO Daily July 02, 2023 12:00am take 1 tablet by bhavik th every twenty-four hours Vitamin D 25 MCG (1000 UT) 1 tablet Orally Once a day Active Cholecalciferol, Vitamin D3, 25 mcg (1,000 unit) cap Take 1,000 Units by mouth. 0 Active Comment on above: Take 1,000 Units by mouth. clopidogrel 75 mg oral tablet (20 sources) P2Y12 Platelet Inhibitor Start: 06-18-2023 take 1 tablet by mouth once daily Clopidogrel Active 0 .ROUTE .COMPLEX 90 June 18, 2023 4:03pm TAKE 1 TABLET BY MOUTH EVERY DAY Start: 01-15-2022 End: 06-18-2023 take 75 mg by mouth once daily Clopidogrel Discontinue d 75 MG PO Daily January 15, 2022 12:00am June 18, 2023 4:03pm Start: 09-07-2021 take 1 tablet by bhavik [...] Take 75 mg by mouth once daily. empagliflozin 10 mg oral tablet (20 sources) Sodium-Glucose Cotransporter 2 Inhibitor Start: 06-23-19 End: 06-18-19 take 10 mg by mouth once daily Empagliflozin Active 10 MG PO Daily June 18, 2023 12:00am empagliflozin (J ARDIANCE) 25 mg tablet q 24 HR. 0 Active Comment on above: q 24 HR. 3 ml insulin aspart, human 100 unt/ml [...] Flexpen) 100 unit/mL (3 mL) insulin pen (3 sources) Start: 06-18-2023 inject 5 [IU] by subcutaneous injection twice daily Insulin Detemir U-100 (Levemir Flexpen) 100 unit/mL (3 mL) insulin pen Active 5 UNIT SUBCUT Twice daily June 18, 2023 12:00am Humulin N (8 sources) Start: 09-07-2021 inject 15 [IU] by [...] oral tablet (20 sources) Nitrate Vasodilator Start: End: take 60 mg by mouth twice daily Isosorbide Mononitrate Active 60 MG PO Twice daily August 12, 2023 8:43am Start: 06-22-2020 End: 01-17-2022 take 60 mg [...] (20 sources) Angiotensin Converting Enzyme Inhibitor Start: take 2.5 mg by mouth twice daily Lisinopril Active 2.5 MG PO Twice daily July 02, 2023 12:00am Start: 06-18-2023 End: 06-18-2023 take 2.5 mg by mouth twice daily Lisinopril Discontinued 2.5 MG PO Twice daily June 18, 2023 12:00am June 18, 2023 11:58am Start: 06-22-2020 End: 06-18-2023 take 20 mg [...] succinate 100 mg extended release oral tablet (10 sources) beta-Adrenergic Jason Start: 06-18-2023 take 150 [...] day Active nitroglycerin 0.4 mg sublingual tablet (11 sources) Nitrate Vasodilator Start: 06-18-2023 Nitroglyce rin [...] 4 MG/3ML 1mg Subcutaneous once weekly Active rosuvastatin calcium 40 mg oral tablet (16 sources) HMG-CoA Reductase Inhibitor Start: 06-18-19 take 40 mg by mouth once daily Rosuvastatin Active 40 MG PO Daily June 18, 2023 12:00am take 1 tablet by bhavik th every twenty-four hours Rosuvastatin Calcium 40 MG 1 tablet Oral ly Once a day Active Ozempic (9 sources) Start: 09-29-2021 Ozempic qWeek, Refill(s) 0 Start Date: 09/29/21 Status: Ordered Start: 07-10-2021 End: 06-18-2023 Semaglutide (Ozempic) 0.25 m g or 0.5 mg(2 mg/1.5 mL) Pen Injector Discontinued 0.5 MG SUBCUT every week July 10, 2021 12:00am June 18, 2023 11:03am Saturday thiamine 100 mg oral tablet (20 sources) Start: 08-12-2023 take 100 mg by mouth every other day Thiamine Hcl (Vitamin B1) Active 100 MG PO .QOD August 12, 2023 8:45am Start: 07-02-2023 End: 08-12-2023 Thiamine Hcl (Vitamin B1) Discontinued 100 MG PO Every 48 hours July 02, 2023 12:00am August 12, 2023 8:46am take 1 tablet by bhavik th every twenty-four hours Vitamin B-1 100 MG 1 tablet Orally Once a day Not-Taking/PRN Vitamin D 25 MCG (1000 UT) (20 sources) take 1 tablet by mouth once rg y Vitamin D 25 MCG (1000 UT) 1 tablet Orally Once a day Active Vitamins/Minerals (20 sources) Vitamins/Mineral s as directed Orally Active Completed/Discontinued Medications Medication Drug Class(es) Dates Sig (Normalized) Sig (Original) amoxicillin 875 mg / clavulanate 125 mg oral tablet (5 sources) Penicillin-class Antibacterial Start: 06-24-2020 End: 07-11-2020 take 1 tablet by mouth twice daily Amoxicillin-Pot Clavulanate (Augmentin) 875-125 mg tablet Discontinued 1 TAB PO Twice daily June 24, 2020 12:00am July 11, 2020 5:52pm bumetanide 0.5 mg oral tablet (20 sources) Loop Diuretic Start: 06-18-2023 End: 08-12-2023 take 0.5 mg by mouth once daily Bumetanide Discontinued 0.5 MG PO Daily June 18, 2023 12:00am August 12, 2023 8:42am take 1 tablet by bhavik th every [...] mg by mouth twice daily with meals. dapagliflozin 10 mg oral tablet (10 sources) Sodium-Glucose Cotransporter 2 Inhibitor Start: 06-18-19 End: 06-18-19 take 1 tablet by mouth once daily Dapagliflozin Propanediol (Farxiga) 10 mg tablet Discontinued 10 MG PO Daily June 18, 2023 12:00am June 18, 2023 11:58am take 1 tablet by bhavik th every twenty-four hours Farxiga 10 MG 1 tablet Orally Once a day Not-Taking/PRN docusate sodium 100 mg oral capsule (20 sources) Start: 06-18-2023 End: 08-12-2023 take 100 mg by mouth once daily Docusate Sodium Discontinued 100 MG PO Daily June 18, 2023 12:00am August 12, 2023 8:42am take 1 capsule by mo [facility] every twenty-four hours Colace 100 MG 1 capsule as needed Orally Once a day Active Colace Active ergocalciferol, vitamin D2, (VITAMIN D2 ORAL) (1 source) ergocalciferol, vitamin D2, (VITAMIN D2 ORAL) Take by mouth. 0 Active Comment on above: Take by mouth. famotidine 40 mg oral tablet (20 sources) Histamine-2 Receptor Antagonist Start: 01-16-20 End: 01-16-20 take 40 mg by mouth twice daily Famotidine Discontinued 40 MG PO Twice daily January 15, 2022 12:00am January 15, 2022 7:52pm Start: 09-07-2021 take 1 tablet by bhavik twice daily famotidine 20 mg Tab 20 [...] Insulin) 100 unit/mL (3 mL) Insulin Pen (5 sources) Start: 2 End: 4 inject 5 [...] units at times depending on blood sugar Insulin Aspart U-100 (Novolog Flexpen U-100 Insulin) 100 unit/mL (3 mL) insulin pen (6 sources) Start: 06-18-2023 End: 06-18-2023 inject 5 [IU] by subcutaneous injection three times daily Insulin Aspart U-100 (Novolog Flexpen U-100 Insulin) 100 unit/mL (3 mL) insulin pen Discontinued 5 UNIT SUBCUT Three times daily June 18, 2023 11:02am June 18, 2023 12:13pm 5 units at times depending on blood sugar Start: 06-18-2023 inject 5 [IU] by sub cutaneous injection [...] up to 40 units/day) 3 ml insulin detemir 100 unt/ml pen [...] insulin, regular, human 100 unt/ml injectable solution (6 sources) Insulin Start: 07-11-2020 End: 01-15-2022 Insulin [...] Active Comment on above: Take by mouth. pantoprazole 40 mg delayed release oral tablet (20 sources) Proton Pump Inhibitor Sta rt: 2 End : 4 take 40 mg by mouth once daily Pantoprazole Discontinued 40 MG PO Daily July 10, 2021 12:00am August 12, 2023 8:44am pioglitazone 15 mg oral tablet (1 source) Peroxisome Proliferator Receptor alpha Agonist, Peroxisome Proliferator Receptor gamma Agonist, Thiazolidinedione Sta rt: 9 pioglitazone (ACTOS) 15 mg tablet potassium chloride 10 meq oral tablet (20 sources) take 1 tablet by mouth once daily at mealtime Potassium Chloride 10 MEQ 1 tablet with food Orally Once a day Not-Taking/PRN predniSONE 20 mg oral tablet (5 sources) Start: 06-24-2020 End: 07-11-2020 take 40 mg by mouth once daily Prednisone Discontinued 40 MG PO Daily 18 01June 24, 2020 12:00am July 11, 2020 5:52pm sacubitril 24 mg / valsartan 26 mg oral tablet (10 sources) Angiotensin 2 Receptor Jason Start: 06-18-2023 End: 06-18-2023 take 1 tablet by mouth twice daily Sacubitril-Valsarta n (Entresto) 24-26 mg tablet Discontinued 1 TAB PO Twice daily June 18, 2023 12:00am June 18, 2023 11:59am take 1 tablet by bhavik th every twelve hours Entresto 24-26 MG 1 tablet Orally Twice a day Not-Taking/PRN Semaglutide (3 sources) Start: 06-18-2023 End: 06-18-2023 inject 1 mg by subcutaneous injection every week Semaglutide Discontinued 1 MG SUBCUT every week June 18, 2023 12:00am June 18, 2023 11:15am ticagrelor 90 mg oral tablet (5 sources) Start: 07-13-2020 End: 07-10-2021 take 1 tablet by mouth twice daily Ticagrelor (Brilinta) 90 mg Tablet Discontinued 90 MG PO Twice daily 180 90 July 13, 2020 12:00am July 10, 2021 9:59am triamcinolone acetonide 0.51010 mg/mg topical ointment (1 source) Corticosteroid triamcinolone (KENALOG) 0.025 % ointment Apply to affected area twice daily. 0 Active Comment on above: Apply to affected ar ea twice daily. VITAMIN B COMPLEX ORAL (1 source) VITAMIN B COMPLE X ORAL Take by mouth every other day. 0 Active Comment on above: Take by mouth every other day. vitamin b12 1 mg oral tablet (8 sources) Vitamin B12 Start: 06-18-2023 End: 07-02-2023 take 1 tablet by mouth every other day Cyanocobalamin (Vitamin B-12) (Vitamin B-12) 1,000 mcg tablet Discontinued 1000 MCG PO .every other day June 18, 2023 11:02am July 02, 2023 9:03am Start: 01-15-2022 End: 06-18-2023 take 1 tablet by mouth once daily Cyanocobalamin (Vitamin B-12) (Vitamin B-12) 1,000 mcg Tablet Discontinued 1000 MCG PO Daily January 15, 2022 12:00am June 18, 2023 11:08am Problems Active Problems Problem Classification Problem Date Documented Date Episodic/Chronic Acute myocardial infarction (18 sources) Myocardial infarction; Translations: [Non-ST elevation (NSTEMI) myocardial infarction] Onset: 2 07-12-2020 Chronic Administrative/social admission (20 sources) Financial problem; Translations: [Other problems related to housing and economic circumstances] Onset: 1 Resolved: 2 Episodic Anxiety disorders (1 source) Generalized anxiety disorder; Translations: [Generalized anxiety disorder] 08-06-2023 Chronic Cardiac dysrhythmias (4 sources) Bradycardia, unspecified; Translations: [Palpitations] Onset: 1 Resolved: 2 Episodic Chronic kidney disease (20 sources) Chronic kidney disease stage 3; Translations: [Chronic renal disease, stage III] 09-07-2021 Chronic Chronic obstructive pulmonary disease and bronchiectasis (4 sources) Acute exacerbation of chronic obstructive airways [...] artery disease; Translations: [Atherosclerotic heart disease of bois forte coronary artery without angina pectoris] Onset: 2 [...] Onset: 9 09-07-2021 Chronic Nonspecific chest pain (10 sources) Chest pain; Translations: [Chest pain, unspecified] Onset: 2 07-11-2020 Episodic Nutritional deficiencies (20 sources) Vitamin D deficiency; Translations: [Vitamin D deficiency, unspecified] Onset: 1 Resolved: 2 Chronic Other aftercare (20 sources) Long-term current use of insulin; Translations: [termite helper (current) use of insulin] Episodic Other aftercare (11 sources) senior care (current) use of insulin; Translations: [termite helper current use of insulin Z79.4] Onset: 1 [...] hyperparathyroidism; Translations: [Secondary hyperparathyroidism of renal origin] 06-30-2023 Chronic Other diseases of kidney and ureters (8 sources) Secondary hyperparathyroidism of renal origin; Translations: [Secondary hyperparathyroidism (of renal origin)] Chronic Other gastrointestinal disorders (1 source) Irritable bowel syndrome 09-07-2021 Chronic Other gastrointestinal disorders (16 sources) Constipation; Translations: [Constipation, unspecified] Episodic Other hematologic conditions (1 source) Raised cardiac enzyme or marker; Translations: [Other specified abnormalities of plasma proteins] 07-11-2020 Episodic Other lower respiratory disease (5 sources) Hypoxia; Translations: [Hypoxemia] 06-22-2020 Episodic Other lower respiratory disease (10 sources) Other nonspecific abnormal finding of lung field; Translations: [Ground glass opacity present on imaging of lung] Onset: 2 Episodic Other lower respiratory disease (6 sources) Solitary pulmonary nodule; Translations: [Solitary pulmonary nodule] Onset: 2 Episodic Other lower respiratory disease (13 sources) Nodule of lung; Translations: [Solitary pulmonary nodule] 07-22-2023 Episodic Other non-traumatic joint disorders (20 sources) [...] disorders (3 sources) Body mass index (BMI) 26.0-26.9, adult; Translations: [Body Mass Index 26.0-26.9, adult] Episodic Other nutritional; endocrine; and metabolic disorders (2 sources) Overweight in adulthood with body mass index of 25 or more but less than 30; Translations: [Body mass index (BMI) 26.0-26.9, adult] 06-18-2023 Episodic Other screening for suspected conditions (not mental disorders or infectious disease) (11 sources) Increased immunoglobulin; Translations: [Patient encounter status] [...] Onset: 09-29-2021 Episodic Other aftercare (1 source) termite helper (current) use of aspirin; Translations: [FDC CURRENT USE OF ASPIRIN] Onset: 04-03-2022 Episodic Other aftercare (1 source) Other termite helper (current) drug therapy; Translations: [OTH STEVEDORE DOCK CURRENT DRUG THERAPY] Onset: 04-03-2022 Episodic Other [...] Test Name Value Interpretation Reference Range Facility Erythrocyte distribution wid th Auto (RBC) [Ratio]on 06-24-2023 Erythrocyte distribution width (RBC) [Ratio] 14.6 % 11.0-15.0 [facility] Estimated glomerular filtrat ion rate (GFR) non- Americanon 06-24-2023 GFR/1.73 sq M.predicted among non-blacks MDRD (S/P/Bld) [Vol rate/Area] 38 mL/min/{1.73_m2} >=60 [facility] Hematocrit Auto (Bld) [Volum e fraction]on 06-24-2023 Hematocrit (Bld) [Volume fraction] 46.2 % 42.0-54.0 [facility] Hemoglobin [Mass/volume] in Bloodon 06-24-2023 Hemoglobin (Bld) [Mass/Vol] 14.5 g/dL 14.0-18.0 [facility] Laboratory - Chemistry and C hemistry - challengeon 06-24-2023 Albumin [Mass/Vol] 4.0 g/dL 3.4-5.0 [facility] Calcium [Mass/Vol] 9.2 mg/dL 8.5-10.1 [facility] Chloride [Moles/Vol] 106 mmol/L 98-107 [facility] CO2 [Moles/Vol] 25.4 mmol/L 21.0-32.0 [facility] Creatinine [Mass/Vol] 1.76 mg/dL 0.70-1.30 [facility] GFR/1.73 sq M.predicted MDRD (S/P/Bld) [Vol rate/Area] 47 mL/min/{1.73_m2} >=60 [facility] Glucose [Mass/Vol] 212 mg/dL 74-106 [facility] Magnesium [Mass/Vol] 2.1 mg/dL 1.8-2.4 [facility] Potassium [Moles/Vol] 4.5 mmol/L 3.5-5.1 [facility] Sodium [Moles/Vol] 142 mmol/L 136-145 [facility] Urate [Mass/Vol] 4.3 mg/dL 3.5-7.2 [facility] Urea nitrogen [Mass/Vol] 30.0 mg/dL 7.0-18.0 [facility] Urea nitrogen/Creatinine [Mass ratio] 17.0 mg/mg [facility] Laboratory - Urinalysison Protein (U) [Mass/Vol] 11.5 mg/dL <=11.9 [facility] Leukocytes [#/volume] correc soraya for nucleated erythrocytes in Blood by Automated counon 06-24-2023 WBC corrected for nucl RBC Auto (Bld) [#/Vol] 9.6 10 3/uL 4.0-11.0 [facility] MCH Auto (RBC) [Entitic mass ]on 06-24-2023 MCH (RBC) [Entitic mass] 28.5 pg 25.9-34.0 [facility] MCHC Auto (RBC) [Mass/Vol]on 06-24-2023 MCHC (RBC) [Mass/Vol] 31.4 g/dL 29.9-35.2 [facility] MCV Auto (RBC) [Entitic vol] on 06-24-2023 MCV (RBC) [Entitic vol] 90.8 fL 80.0-94.0 [facility] No Panel Informationon 06-23 25-Hydroxy Vitamin D Total 42.5 ng/mL [facility] Comment on above: <20 ng/mL Vit D defi cient20-<30 ng/mL Vit D [id number] ng/mL Vit D sufficient>100 ng/mL Potential Toxicity Parathyroid Hormone (Intact) 48 pg/mL 15-65 [facility] Comment on above: Performed at: [place] [id number] Director: Kwaku Park PhD, Phone: [phone] Phosphorus Level 3.6 mg/dL 2.6-4.7 [facility] Urine Random Creatinine 60.60 mg/dL 20.00-300. 00 [facility] Platelet mean volume Auto (B ld) [Entitic vol]on 06-24-2023 Platelet mean volume (Bld) [Entitic vol] 10.2 fL 9.5-13.5 [facility] Platelets Auto (Bld) [#/Vol] on 06-24-2023 Platelets (Bld) [#/Vol] 178 10 3/uL 150-450 [facility] RBC Auto (Bld) [#/Vol]on RBC (Bld) [#/Vol] 5.09 10 6/uL 4.70-6.10 [facility] Serum or plasma anion gap de terminationon 06-24-2023 Anion gap [Moles/Vol] 15.1 mmol/L [facility] Urine protein/creatinine rat ioon 06-24-2023 Protein/Creatinine (U) [Ratio] 0.19 [facility] HbA1c HPLC (Bld) [Mass fract ion]on 06-18-2023 HbA1c (Bld) [Mass fraction] 6.1 % [facility] No Panel Informationon 06-17 Bedside Glucose 150 [facility] Cholesterol in LDL Calc [Mas s/Vol]on 06-13-2023 Cholesterol in LDL [Mass/Vol] 29.0 mg/dL [facility] Comment on above: <100 mg/dl [id number] 0-129 mg/dl NEAR OR ABOVE [id number] mg/dl BORDERLINE [id number] mg/dl HIGH>190 mg/dl VERY HIGH Cholesterol in VLDL Calc [Ma ss/Vol]on 06-13-2023 Cholesterol in VLDL [Mass/Vol] 24.8 mg/dL [facility] Laboratory - Chemistry and C hemistry - challengeon 06-13-2023 Cholesterol [Mass/Vol] 87 mg/dL <=200 [facility] Cholesterol in HDL [Mass/Vol] 34 mg/dL 40-60 [facility] Comment on above: > or =60 mg/dl - LOW CARDIOVASCULAR RISK<40 mg/dl - HIGH CARDIOVASCULAR RISK Triglyceride [Mass/Vol] 124 mg/dL <=150 [facility] Serum or plasma total choles terol/high density lipoprotein (HDL) cholesterol mass yulia 06-13-2023 Cholesterol.total/Cho lesterol in HDL [Mass ratio] 2.6 {ratio} [facility] Comment on above: 3.3 - 4.4 LOW RISK4. 4 - 7.1 AVERAGE RISK7.1 - 11.0 MODERATE RISK>11.0 HIGH RISK Office Visiton 05-07-2023 Follow-up visit [id number] Lani Lizama 1950 M Date Provider Department Center 05/07/2023 [id number] ARTEAGA Family History Problem Relation Age of Onset Heart attack Mother Other Father Other Brother Heart attack Maternal Grandmother Heart attack Maternal Grandfather Family Status - Relation Status Age at Mother Father Brother Maternal Grandmother Maternal Grandfather Level of Service:[id number] [place] OFFICE/OUTPATIENT ESTABLISHED LOW MDM 20 MIN Normal [facility] Office Visiton 04-30-2023 Follow-up visit [id number] Lani Lizama 1950 M Date Provider Department Center 04/30/2023 LAILA MCBRIDE Family History Problem Relation Age of Onset Heart attack Mother Other Father Other Brother Heart attack Maternal Grandmother Heart attack Maternal Grandfather Family Status - Relation Status Age at Mother Father Brother Maternal Grandmother Maternal Grandfather Level of Service:[id number] [place] OFFICE/OUTPATIENT ESTABLISHED MOD MDM 30 MIN Normal [facility] Office Visiton 03-18-2023 Follow-up visit [id number] Lani Lizama 1950 M Date Provider Department Center 03/18/2023 LAILA MCBRIDE CARD [facility] Family History Problem Relation Age of Onset Heart attack Mother Other Father Other Brother Heart attack Maternal Grandmother Heart attack Maternal Grandfather Family Status - Relation Status Age at Mother Father Brother Maternal Grandmother Maternal Grandfather Level of Service:[id number] [place] OFFICE/OUTPATIENT ESTABLISHED MOD MDM 30 MIN Normal [facility] A1C HEMOGLOBINon 03-12-2023 HbA1c (Bld) [Mass fraction] 7.1 % [place] [facility] [employer] Other Glucose - FINGER STICKon Glucose [Mass/Vol] 151 mg/dL [facility] [employer] Other HbA1c (Bld) [Mass fraction]o n 03-12-2023 A1C HEMOGLOBIN [facility] [employer] Other Office Visiton 03-07-2023 Follow-up visit [id number] Lani Lizama 1950 [facility] Provider Department Center 03/07/2023 PINKY JULES Hos Family History Problem Relation Age of Onset Heart attack Mother Other Father Other Brother Heart attack Maternal Grandmother Heart attack Maternal Grandfather Family Status - Relation Status Age at Mother Father Brother Maternal Grandmother Maternal Grandfather Level of Service:[id number] [place] OFFICE/OUTPATIENT ESTABLISHED MOD MDM 30-39 MIN Normal [facility] Orders Onlyon 02-27-2023 Orders Only [id number] Lani Lizama 1950 M [facility] Provider Department Center 02/27/2023 GEOVANNA MONTES MARCELINO [facility] Family History Problem Relation Age of Onset Heart attack Mother Other Father Other Brother Heart attack Maternal Grandmother Heart attack Maternal Grandfather Family Status - Relation Status Age at Mother Father Brother Maternal Grandmother Maternal Grandfather Normal [facility] Office Visiton 02-19-2023 Follow-up visit [id number] AldaLani Mota 1950 M Date Provider Department Center 02/19/2023 [id number] SOARES Luis Enrique Chanda Family History Problem Relation Age of Onset Heart attack Mother Other Father Other Brother Heart attack Maternal Grandmother Heart attack Maternal Grandfather Family Status - Relation Status Age at Mother Father Brother Maternal Grandmother Maternal Grandfather Level of Service:[id number] [place] POSTOP FOLLOW UP VISIT RELATED TO ORIGINAL PX Normal [facility] HPon 02-12-2023 HP ------ -- Attestation [...] was recently admitted to [facility] for NSTEMI. Had inpatient stress test and heart cath. Denies SOB but still having chest pain and has taken nitroglycerin a few times for relief. Had CT chest last week s/p discharge. Cardiac catheterization revealed patent bypass grafts and worsening bois forte vessel disease. Medications were adjusted. I had [...] the morning. rubina (more content not included)... [facility] NURSNOTEon 02-12-2023 NURSNOTE RN educated pt on d/ c instructions. RN encouraged pt to voice any questions or concerns. Pt verbalizes no questions or concerns at this time. [facility] NURSNOTE CHG wipes and iodine nasal swab completed per protocol. [facility] Orders Onlyon 02-12-2023 Orders Only [id number] Lani Lizama 1950 M Date Provider Department Center 02/12/2023 [facility] Family History Problem Relation Age of Onset Heart attack Mother Other Father Other Brother Heart attack Maternal Grandmother Heart attack Maternal Grandfather Family Status - Relation Status Age at Mother Father Brother Maternal Grandmother Maternal Grandfather [facility] Follow-Upon 02-01-2023 Follow-Up [id number] Lani Lizama 1950 M Date Provider Department Center 02/01/2023 Janie6-LAILA DUARTE CARD [facility] Family History Problem Relation Age of Onset Heart attack Mother Other Father Other Brother Heart attack Maternal Grandmother Heart attack Maternal Grandfather Family Status - Relation Status Age at Mother Father Brother Maternal Grandmother Maternal Grandfather Level of Service:10013 [place] OFFICE/OUTPATIENT ESTABLISHED MOD MDM 30-39 MIN Reason for Visit and Comments: Follow-up [[id number]] Normal [facility] 30on 01-28-2023 30 The patient is Moder ately Stable - Low risk of patient condition declining or worsening The patient's goals for the shift include comfort The clinical goals for the shift include vss, safety Over the shift, the patient continued to make progress toward the following goals. Normal [facility] APTTon 01-28-2023 ACTIVATED PARTIAL THROMBOPLASTIN TIME IN PPP BY COAGULATION ASSAY 125.9 Seconds High 25.0-35.0 [facility] Comment on above: Result Comment: Clin ical significance of the APTT is questionable in the presence of heparin. Performed By: #### L [id number] #### [facility] ([facility]) [address] [place] [address] BASIC METABOLIC PANELon 01-01 Anion gap [Moles/Vol] 10 mmol/L Normal 7-20 [facility] Comment on above: Performed By: #### L [id number] ####[facility] ([facility])[address] [place] [address] Calcium [Mass/Vol] 9.1 mg/dL Normal 8.6-10.3 [facility] Comment on above: Performed By: #### L [id number] ####[facility] ([facility])[address] [place] [address] Chloride [Moles/Vol] 110 mmol/L High 98-107 [facility] Comment on above: Performed By: #### L [id number] ####[facility] ([facility])[address] [place] [address] CO2 [Moles/Vol] 24 mmol/L Normal 21-31 [facility] Comment on above: Performed By: #### L [id number] ####[facility] ([facility])[address] [place] [address] Creatinine [Mass/Vol] 1.46 mg/dL High 0.70-1.30 [facility] Comment on above: Performed By: #### L [id number] ####[facility] ([facility])[address] [place] [address] GLOMERULAR FILTRATION RATE ML/MIN/1.73 SQ M.PREDICTED 51.1 mL/min/1.73m*2 Low >60.0 [facility] Comment on above: Result Comment: The [facility]???s estimated glomerular filtration rate (eGFR) will [...] of individuals. Performed By: #### L [id number] ####[facility] ([facility])[address] [place] [address] Glucose [Mass/Vol] 133 mg/dL High 70-100 [facility] Comment on above: Performed By: #### L [id number] ####[facility] ([facility])[address] [place] [address] Potassium [Moles/Vol] 4.0 mmol/L Normal 3.5-5.1 [facility] Comment on above: Performed By: #### L [id number] ####[facility] ([facility])[address] [place] [address] Sodium [Moles/Vol] 140 mmol/L Normal 136-145 [facility] Comment on above: Performed By: #### L [id number] ####[facility] ([facility])[address] [place] [address] Urea nitrogen [Mass/Vol] 23 mg/dL Normal 7-25 [facility] Comment on above: Performed By: #### L [id number] ####[facility] ([facility])[address] [place] [address] UREA NITROGEN/CREATININE (MASS RATIO) IN SER/PLAS 15.8 Normal [facility] Comment on above: Performed By: #### L [id number] ####[facility] ([facility])[address] [place] [address] CBCon 01-28-2023 Erythrocyte distribution width (RBC) [Ratio] 13.2 % Normal 11.5-15.0 [facility] Comment on above: Performed By: #### L [id number] ####[facility] ([facility])[address] [place] [address] ERYTHROCYTE MEAN CORPUSCULAR HEMOGLOBIN CONCENTRATION (G/DL) BY AUTOMATED 33.8 g/dL Normal 32.0-35.0 [facility] Comment on above: Performed By: #### L [id number] ####[facility] ([facility])[address] [place] [address] Hematocrit (Bld) [Volume fraction] 39.0 % Normal 39.0-55.0 [facility] Comment on above: Performed By: #### L [id number] ####[facility] ([facility])[address] [place] [address] Hemoglobin (Bld) [Mass/Vol] 13.2 g/dL Normal 13.0-17.0 [facility] Comment on above: Performed By: #### L [id number] ####[facility] ([facility])[address] [place] [address] MCH (RBC) [Entitic mass] 31.1 pg Normal 27.0-33.0 [facility] Comment on above: Performed By: #### L [id number] ####[facility] ([facility])[address] [place] [address] MCV (RBC) [Entitic vol] 91.8 fL Normal 82.0-98.0 [facility] Comment on above: Performed By: #### L [id number] ####[facility] ([facility])[address] [place] [address] PLATELETS (10*3/UL) IN BLOOD AUTOMATED COUNT 141 10*3/uL Low 150-400 [facility] Comment on above: Performed By: #### L [id number] ####[facility] ([facility])[address] [place] [address] RBC (Bld) [#/Vol] 4.25 10*6/uL Normal 4.20-5.70 [facility] Comment on above: Performed By: #### L [id number] ####[facility] ([facility])[address] [place] [address] WBC (Bld) [#/Vol] 6.40 10*3/uL Normal 4.00-10.60 [facility] Comment on above: Performed By: #### L [id number] ####[facility] ([facility])[address] [place] [address] LIPID PANELon 01-28-2023 CHOL/HDL 3.7 mg/dL Normal [facility] Comment on above: Performed By: #### L [id number] #### [facility] ([facility]) [address] [place] [address] Cholesterol [Mass/Vol] 111 mg/dL Low 120-200 [facility] Comment on above: Performed By: #### L [id number] #### [facility] ([facility]) [address] [place] [address] Magnesium [Mass/Vol] 172 mg/dL High 40-149 [facility] Comment on above: Result Comment: TRIG LYCERIDE REFERENCE RANGE: 20 YEARS AND OLDER CARDIOVASCULAR RISK LESS THAN 150 mg/dL LOW RISK 150 TO 199 mg/dL BORDERLINE RISK 200 mg/dL AND GREATER HIGH RISK Performed By: #### L [id number] #### [facility] ([facility]) [address] [place] [address] Magnesium [Mass/Vol] 47 mg/dL Normal 0-160 [facility] Comment on above: Performed By: #### L [id number] #### [facility] ([facility]) [address] [place] [address] Magnesium [Mass/Vol] 30 mg/dL Normal 23-92 [facility] Comment on above: Performed By: #### L [id number] #### [facility] ([facility]) [address] [place] [address] NON HDL CHOL. (LDL+VLDL) 81 Normal [facility] Comment on above: Performed By: #### L [id number] #### [facility] ([facility]) [address] [place] [address] TOTAL VLDL-C 34 mg/dL Normal 0-40 [facility] Comment on above: Performed By: #### L [id number] #### [facility] ([facility]) [address] [place] [address] Orders Onlyon 01-28-2023 Orders Only [id number] Lani Lizama 1950 M Date Provider Department Center 01/28/2023 MARGOT PAUL [facility] Family History Problem Relation Age of Onset Heart attack Mother Other Father Other Brother Heart attack Maternal Grandmother Heart attack Maternal Grandfather Family Status - Relation Status Age at Mother Father Brother Maternal Grandmother Maternal Grandfather Normal [facility] POCT GLUCOSE METER UNSOLICIT ED RESULTSon 01-28-2023 Glucose [Mass/Vol] 155 mg/dL High 70-105 [facility] Comment on above: Order Comment: Waive d Testing in the ED is performed under the ED CLIA certificate #[id number]. Result Comment: [email or web address] Performed By: #### L [id number] ####[facility] ([facility])[address] [place] [address] Glucose [Mass/Vol] 151 mg/dL High 70-105 [facility] Comment on above: Order Comment: Waive d Testing in the ED is performed under the ED CLIA certificate #[id number]. Result Comment: [email or web address] Performed By: #### L [id number] #### [facility] ([facility]) [address] [place] [address] Glucose [Mass/Vol] 133 mg/dL High 70-105 [facility] Comment on above: Order Comment: Waive d Testing in the ED is performed under the ED CLIA certificate #[id number]. Result Comment: [email or web address] Performed By: #### L [id number] #### [facility] ([facility]) [address] [place] [address] 30on 01-27-2023 30 The patient is Moder [...] to discharge with patient and caregiver Normal [facility] APTTon 01-27-2023 ACTIVATED PARTIAL THROMBOPLASTIN TIME IN PPP BY COAGULATION ASSAY 113.7 Seconds High 25.0-35.0 [facility] Comment on above: Result Comment: Clin ical significance of the APTT is questionable in the presence of heparin. Performed By: #### L [id number] ####[facility] ([facility])[address] [place] [address] BASIC METABOLIC PANELon 10-2 Anion gap [Moles/Vol] 13 mmol/L Normal 7-20 [facility] Comment on above: Performed By: #### L [id number] ####[facility] ([facility])[address] [place] [address] Calcium [Mass/Vol] 9.4 mg/dL Normal 8.6-10.3 [facility] Comment on above: Performed By: #### L [id number] ####[facility] ([facility])[address] [place] [address] Chloride [Moles/Vol] 106 mmol/L Normal 98-107 [facility] Comment on above: Performed By: #### L [id number] ####[facility] ([facility])[address] [place] [address] CO2 [Moles/Vol] 26 mmol/L Normal 21-31 [facility] Comment on above: Performed By: #### L [id number] ####[facility] ([facility])[address] [place] [address] Creatinine [Mass/Vol] 1.71 mg/dL High 0.70-1.30 [facility] Comment on above: Performed By: #### L [id number] ####[facility] ([facility])[address] [place] [address] GLOMERULAR FILTRATION RATE ML/MIN/1.73 SQ M.PREDICTED 42.3 mL/min/1.73m*2 Low >60.0 [facility] Comment on above: Result Comment: The [facility]???s estimated glomerular filtration rate (eGFR) will [...] of individuals. Performed By: #### L [id number] ####[facility] ([facility])[address] [place] [address] Glucose [Mass/Vol] 155 mg/dL High 70-100 [facility] Comment on above: Performed By: #### L [id number] ####[facility] ([facility])[address] [place] [address] Potassium [Moles/Vol] 4.1 mmol/L Normal 3.5-5.1 [facility] Comment on above: Performed By: #### L [id number] ####[facility] ([facility])[address] [place] [address] Sodium [Moles/Vol] 141 mmol/L Normal 136-145 [facility] Comment on above: Performed By: #### L [id number] ####[facility] ([facility])[address] [place] [address] Urea nitrogen [Mass/Vol] 31 mg/dL High 7-25 [facility] Comment on above: Performed By: #### L [id number] ####[facility] ([facility])[address] [place] [address] UREA NITROGEN/CREATININE (MASS RATIO) IN SER/PLAS 18.1 Normal [facility] Comment on above: Performed By: #### L [id number] ####[facility] ([facility])[address] [place] [address] POCT GLUCOSE METER UNSOLICIT ED RESULTSon 01-27-2023 Glucose [Mass/Vol] 145 mg/dL High 70-105 [facility] Comment on above: Order Comment: Waive d Testing in the ED is performed under the ED CLIA certificate #[id number]. Result Comment: [email or web address] Performed By: #### L [id number] ####[facility] ([facility])[address] [place] [address] Glucose [Mass/Vol] 195 mg/dL High 70-105 [facility] Comment on above: Order Comment: Waive d Testing in the ED is performed under the ED CLIA certificate #[id number]. Result Comment: [email or web address] Performed By: #### L [id number] ####[facility] ([facility])[address] [place] [address] 30on 01-26-2023 30 The patient is Moder ately Stable - Low risk of patient condition declining or worsening The patient's goals for the shift include comfort The clinical goals for the shift include VSS, safety Problem: Safety - Adult Goal: Free from fall injury Outcome: Progressing Flowsheets (Taken 01/26/20231999) Free from fall injury: Assess patient frequently for physical needs [facility] 30 The patient is Moder ately [...] barriers to discharge with patient and caregiver [facility] 30 The patient is Moder ately Stable - Low risk of patient condition declining or worsening The patient's goals for the shift include rest The clinical goals for the shift include VSS, cath site stable [facility] APTTon 01-26-2023 ACTIVATED PARTIAL THROMBOPLASTIN TIME IN PPP BY COAGULATION ASSAY 80.8 Seconds High 25.0-35.0 [facility] Comment on above: Result Comment: Clin ical significance of the APTT is questionable in the presence of heparin. Performed By: #### L [id number] #### [facility] ([facility]) [address] [place] [address] ACTIVATED PARTIAL THROMBOPLASTIN TIME IN PPP BY COAGULATION ASSAY 30.4 Seconds Normal 25.0-35.0 [facility] Comment on above: Order Comment: Check aPTT every 6 hours while on heparin infusion, or per protocol. Result Comment: Clin ical significance of the APTT is questionable in the presence of heparin. Performed By: #### L [id number] #### [facility] ([facility]) [address] [place] [address] ACTIVATED PARTIAL THROMBOPLASTIN TIME IN PPP BY COAGULATION ASSAY 30.3 Seconds Normal 25.0-35.0 [facility] Comment on above: Order Comment: Check aPTT every 6 hours while on heparin infusion, or per protocol. Result Comment: Clin ical significance of the APTT is questionable in the presence of heparin. Performed By: #### L [id number] #### [facility] ([facility]) [address] [place] [address] BASIC METABOLIC PANELon 10-2 Anion gap [Moles/Vol] 13 mmol/L Normal 7-20 [facility] Comment on above: Performed By: #### L [id number] #### [facility] ([facility]) [address] [place] [address] Calcium [Mass/Vol] 9.1 mg/dL Normal 8.6-10.3 [facility] Comment on above: Performed By: #### L [id number] #### [facility] ([facility]) [address] [place] [address] Chloride [Moles/Vol] 107 mmol/L Normal 98-107 [facility] Comment on above: Performed By: #### L [id number] #### [facility] ([facility]) [address] [place] [address] CO2 [Moles/Vol] 22 mmol/L Normal 21-31 [facility] Comment on above: Performed By: #### L [id number] #### [facility] ([facility]) [address] [place] [address] Creatinine [Mass/Vol] 1.77 mg/dL High 0.70-1.30 [facility] Comment on above: Performed By: #### L [id number] #### [facility] ([facility]) [address] [place] [address] GLOMERULAR FILTRATION RATE ML/MIN/1.73 SQ M.PREDICTED 40.6 mL/min/1.73m*2 Low >60.0 [facility] Comment on above: Result Comment: The [facility]???s estimated glomerular filtration rate (eGFR) will [...] individuals. Performed By: #### L [id number] #### [facility] ([facility]) [address] [place] [address] Glucose [Mass/Vol] 125 mg/dL High 70-100 [facility] Comment on above: Performed By: #### L [id number] #### [facility] ([facility]) [address] [place] [address] Potassium [Moles/Vol] 4.2 mmol/L Normal 3.5-5.1 [facility] Comment on above: Performed By: #### L [id number] #### [facility] ([facility]) [address] [place] [address] Sodium [Moles/Vol] 138 mmol/L Normal 136-145 [facility] Comment on above: Performed By: #### L [id number] #### [facility] ([facility]) [address] [place] [address] Urea nitrogen [Mass/Vol] 27 mg/dL High 7-25 [facility] Comment on above: Performed By: #### L [id number] #### [facility] ([facility]) [address] [place] [address] UREA NITROGEN/CREATININE (MASS RATIO) IN SER/PLAS 15.3 Normal [facility] Comment on above: Performed By: #### L [id number] #### [facility] ([facility]) [address] [place] [address] CBCon 01-26-2023 Erythrocyte distribution width (RBC) [Ratio] 13.2 % Normal 11.5-15.0 [facility] Comment on above: Performed By: #### L [id number] #### [facility] ([facility]) [address] [place] [address] ERYTHROCYTE MEAN CORPUSCULAR HEMOGLOBIN CONCENTRATION (G/DL) BY AUTOMATED 34.3 g/dL Normal 32.0-35.0 [facility] Comment on above: Performed By: #### L [id number] #### [facility]) [address] [place] [address] Hematocrit (Bld) [Volume fraction] 42.0 % Normal 39.0-55.0 [facility] Comment on above: Performed By: #### L [id number] #### [facility] ([facility]) [address] [place] [address] Hemoglobin (Bld) [Mass/Vol] 14.4 g/dL Normal 13.0-17.0 [facility] Comment on above: Performed By: #### L [id number] #### [facility] ([facility]) [address] [place] [address] MCH (RBC) [Entitic mass] 31.0 pg Normal 27.0-33.0 [facility] Comment on above: Performed By: #### L [id number] #### [facility] ([facility]) [address] [place] [address] MCV (RBC) [Entitic vol] 90.3 fL Normal 82.0-98.0 [facility] Comment on above: Performed By: #### L [id number] #### [facility] ([facility]) [address] [place] [address] PLATELETS (10*3/UL) IN BLOOD AUTOMATED COUNT 163 10*3/uL Normal 150-400 [facility] Comment on above: Performed By: #### L [id number] #### [facility] ([facility]) [address] [place] [address] RBC (Bld) [#/Vol] 4.65 10*6/uL Normal 4.20-5.70 [facility] Comment on above: Performed By: #### L [id number] #### [facility] ([facility]) [address] [place] [address] WBC (Bld) [#/Vol] 8.72 10*3/uL Normal 4.00-10.60 [facility] Comment on above: Performed By: #### L [id number] #### [facility] ([facility]) [address] [place] [address] POCT GLUCOSE METER UNSOLICIT ED RESULTSon 01-26-2023 Glucose [Mass/Vol] 155 mg/dL High 70-105 [facility] Comment on above: Order Comment: Waive d Testing in the ED is performed under the ED CLIA certificate #[id number]. Result Comment: [email or web address] Performed By: #### L [id number] ####[facility] ([facility])[address] [place] [address] Glucose [Mass/Vol] 120 mg/dL High 70-105 [facility] Comment on above: Order Comment: Waive d Testing in the ED is performed under the ED CLIA certificate #[id number]. Result Comment: [email or web address] Performed By: #### L [id number] #### [facility] ([facility]) [address] [place] [address] Glucose [Mass/Vol] 155 mg/dL High 70-105 [facility] Comment on above: Order Comment: Waive d Testing in the ED is performed under the ED CLIA certificate #[id number]. Result Comment: [email or web address] Performed By: #### L [id number] ####[facility] ([facility])[address] [place] [address] 30on 01-25-2023 30 The patient is Moder [...] to discharge with patient and caregiver Normal [facility] ANTI-XA (HEPARIN LEVEL)on HEPARIN UNFRACTIONATED (U/ML) IN PPP BY CHROMOGENIC METHOD 0.88 IU/mL High 0.3-0.7 [facility] Comment on above: Order Comment: Anti- Xa (Heparin level) added per protocol. Result Comment: [place] roxaban and Apixaban will interfere with the anti Xa assay used to monitor UFH and LMWH. Performed By: #### L [id number] ####[facility] ([facility])[address] [place] [address] APTTon 01-25-2023 ACTIVATED PARTIAL THROMBOPLASTIN TIME IN PPP BY COAGULATION ASSAY 153.8 Seconds Critically high 25.0-35.0 [facility] Comment on above: Order Comment: Check aPTT every 6 hours while on heparin infusion, or per protocol. Result Comment: Clin ical significance of the APTT is questionable in the presence of heparin. Performed By: #### L [id number] #### [facility] ([facility]) [address] [place] [address] B-TYPE NATRIURETIC PEPTIDEon 01-25-2023 Natriuretic peptide B (Bld) [Mass/Vol] 579 pg/mL High 0-100 [facility] Comment on above: Performed By: #### L [id number] #### [facility] ([facility]) [address] [place] [address] BASIC METABOLIC PANELon 12-31 Anion gap [Moles/Vol] 15 mmol/L Normal 7-20 [facility] Comment on above: Performed By: #### L [id number] #### [facility] [address] [place] [address] Calcium [Mass/Vol] 9.6 mg/dL Normal 8.6-10.3 [facility] Comment on above: Performed By: #### L [id number] #### [facility]) [address] [place] [address] Chloride [Moles/Vol] 103 mmol/L Normal 98-107 [facility] Comment on above: Performed By: #### L [id number] #### [facility] [address] [place] [address] CO2 [Moles/Vol] 27 mmol/L Normal 21-31 [facility] Comment on above: Performed By: #### L [id number] #### [facility]) [address] [place] [address] Creatinine [Mass/Vol] 1.83 mg/dL High 0.70-1.30 [facility] Comment on above: Performed By: #### L [id number] #### [facility] ([facility]) [address] [place] [address] GLOMERULAR FILTRATION RATE ML/MIN/1.73 SQ M.PREDICTED 39.0 mL/min/1.73m*2 Low >60.0 [facility] Comment on above: Result Comment: The [facility]???s estimated glomerular filtration rate (eGFR) will [...] individuals. Performed By: #### L [id number] #### [facility]) [address] [place] [address] Glucose [Mass/Vol] 168 mg/dL High 70-100 [facility] Comment on above: Performed By: #### L [id number] #### [facility] ([facility]) [address] [place] [address] Potassium [Moles/Vol] 4.7 mmol/L Normal 3.5-5.1 [facility] Comment on above: Performed By: #### L [id number] #### [facility] ([facility]) [address] [place] [address] Sodium [Moles/Vol] 140 mmol/L Normal 136-145 [facility] Comment on above: Performed By: #### L [id number] #### [facility] ([facility]) [address] [place] [address] Urea nitrogen [Mass/Vol] 28 mg/dL High 7-25 [facility] Comment on above: Performed By: #### L [id number] #### [facility]) [address] [place] [address] UREA NITROGEN/CREATININE (MASS RATIO) IN SER/PLAS 15.3 Normal [facility] Comment on above: Performed By: #### L [id number] #### [facility] ([facility]) [address] [place] [address] CBCon 01-25-2023 Erythrocyte distribution width (RBC) [Ratio] 13.1 % Normal 11.5-15.0 [facility] Comment on above: Performed By: #### L [id number] ####[facility] ([facility])[address] [place] [address] ERYTHROCYTE MEAN CORPUSCULAR HEMOGLOBIN CONCENTRATION (G/DL) BY AUTOMATED 33.7 g/dL Normal 32.0-35.0 [facility] Comment on above: Performed By: #### L [id number] ####[facility])[address] [place] [address] Hematocrit (Bld) [Volume fraction] 46.3 % Normal 39.0-55.0 [facility] Comment on above: Performed By: #### L [id number] ####[facility] ([facility])[address] [place] [address] Hemoglobin (Bld) [Mass/Vol] 15.6 g/dL Normal 13.0-17.0 [facility] Comment on above: Performed By: #### L [id number] ####[facility])[address] [address] MCH (RBC) [Entitic mass] 30.7 pg Normal 27.0-33.0 [facility] Comment on above: Performed By: #### L [id number] ####[facility] ([facility])[address] [place] [address] MCV (RBC) [Entitic vol] 91.1 fL Normal 82.0-98.0 [facility] Comment on above: Performed By: #### Darling [id number] ####[facility] ([facility])[address] [place] [address] PLATELETS (10*3/UL) IN BLOOD AUTOMATED COUNT 185 10*3/uL Normal 150-400 [facility] Comment on above: Performed By: #### L [id number] ####[facility] ([facility])[address] [place] [address] RBC (Bld) [#/Vol] 5.08 10*6/uL Normal 4.20-5.70 [facility] Comment on above: Performed By: #### L [id number] ####[facility])[address] [place] [address] WBC (Bld) [#/Vol] 8.91 10*3/uL Normal 4.00-10.60 [facility] Comment on above: Performed By: #### L [id number] ####[facility] ([facility])[place] [address] CONSULTon 01-25-2023 CONSULT ------ -- Attestation signed [...] y.o. male was a direct transfer from [facility], the patient is known to have coronary [...] artery stenosis, Coronary artery disease, Diabetes mellitus ([facility]/HCC), Hyperlipidemia, Hypertension, PVD (peripheral vascular disease) (CMS/[facility]), and Third degree heart block (CMS/[facility]). Surgical History He has a past [...] mg by mouth in the morning. HYDROcodone-acetaminophen ([place]) 5-325 mg tablet TAKE 1 TABLET BY [...] 93 10 (more content not included)... Normal [facility] HPon 01-25-2023 HP H&P reviewed. The jaron mark was examined and there are no changes to the H&P. 72 y.o. male was a direct transfer from [facility], the patient is known to have Coronary artery disease s/p CABG and multiple PCI in the past, PAD, hyperlipidemia, hypertension. The patient has been having worsening chest pain for the last 2 months which got much worse yesterday, the patient went to the ER his troponin was positive he was referred for further evaluation management to [facility]. The patient had coronary angiography and December 2021 showed patent LAD/MENJIVAR graft, patent SVG to OM and PDA. Patient will undergo LHC to evaluate CAD and look for patency of grafts and previously placed stents. Risks and benefits were discussed in detail with patient and agreed to proceed. Normal [facility] PLATELET COUNTon 01-25-2023 PLATELETS (10*3/UL) IN BLOOD AUTOMATED COUNT 183 10*3/uL Normal 150-400 [facility] Comment on above: Performed By: #### L [id number] #### [facility] [address] [place] [address] POCT GLUCOSE METER UNSOLICIT ED RESULTSon 01-25-2023 Glucose [Mass/Vol] 211 mg/dL High 70-105 [facility] Comment on above: Order Comment: Waive d Testing in the ED is performed under the ED CLIA certificate #[id number]. Result Comment: [email or web address] Performed By: #### L AB15 #### [facility]) [address] [place] [address] Glucose [Mass/Vol] 143 mg/dL High 70-105 [facility] Comment on above: Order Comment: Waive d Testing in the ED is performed under the ED CLIA certificate #[id number]. Result Comment: [email or web address] Performed By: #### L AB15 #### [facility]) [address] [place] [address] TROPONIN Ion 01-25-2023 Troponin I.cardiac [Mass/Vol] 1.75 ng/mL Critically high 0.00-0.04 [facility] Comment on above: Result Comment: M-TR OPONIN INITIAL CRITICAL HIGH; RESPUN AND RETESTED Performed By: #### L [id number] #### [facility]) [address] [place] [address] Office Visiton 01-17-2023 Follow-up visit [id number] Lani Lizama 1950 M [facility] Provider Department Center 01/17/2023 PINKY JULES MARCELINO Armas Family History Problem Relation Age of Onset Heart attack Mother Other Father Other Brother Heart attack Maternal Grandmother Heart attack Maternal Grandfather Family Status - Relation Status Age at Mother Father Brother Maternal Grandmother Maternal Grandfather Level of Service:05625 [place] OFFICE/OUTPATIENT ESTABLISHED MOD MDM 30-39 MIN Normal [facility] Office Visiton 10-09-2022 Follow-up visit [id number] Lani Lizama 1950 M Date Provider Department Center 10/09/2022 DEISY SCHWARTZ MARCELINO Armas Family History Problem Relation Age of Onset Heart attack Mother Other Father Other Brother Heart attack Maternal Grandmother Heart attack Maternal Grandfather Family Status - Relation Status Age at Mother Father Brother Maternal Grandmother Maternal Grandfather Level of Service:18605 [place] OFFICE/OUTPATIENT ESTABLISHED MOD MDM 30-39 MIN Normal [facility] CT CHEST WO CONon 08-09-2022 CT [...] SCHILLING Date: 2022-08-09 14:00 Normal [facility] Office Visiton 07-24-2022 Follow-up visit [id number] Lani Lizama 1950 M Date Provider Department Center 07/24/2022 [id number] SOARES [facility] Family History Problem Relation Age of Onset Heart attack Mother Other Father Other Brother Heart attack Maternal Grandmother Heart attack Maternal Grandfather Family Status - Relation Status Age at Mother Father Brother Maternal Grandmother Maternal Grandfather Level of Service:43842 [place] OFFICE/OUTPATIENT ESTABLISHED MOD MDM 30-39 MIN Reason for Visit and Comments: Hypertension [336486] Coronary Artery Disease [187] Normal [facility] A1C HEMOGLOBINon 06-26-2022 HbA1c (Bld) [Mass fraction] 7.4 % [facility] Other Glucose - FINGER STICKon Glucose [Mass/Vol] 267 mg/dL [facility] Other HbA1c (Bld) [Mass fraction]o n 06-26-2022 A1C HEMOGLOBIN [facility] [employer] Other PTH INTACTon 06-26-2022 PTH, Intact 37 pg/mL Normal 15-65 [facility] Comment on above: Performed By: #### C MP, CMADM #### [facility] [address] [place] [address] Dr. Mirza Sadler 37on 06-25-2022 37 -Increase Carvedilol to 12.5 mg twice a day. Take two pills of current medication, -Check blood pressure at least once a day and bring log to follow-up -Bring blood pressure monitor to follow-up appointment Normal [facility] FERRITINon 06-25-2022 Ferritin [Mass/Vol] 269.0 ng/mL Normal 26.0-388.0 [facility] Comment on above: Performed By: #### B ICE GRINDER #### [facility] [address] [place] [address] Dr. Mirza Sadler HEMOGRAM AND PLATELon 2022 Hematocrit (Bld) [Volume fraction] 44.7 % Normal 42.0-54.0 [facility] Comment on above: Performed By: #### P T, PTT #### [facility] [address] [place] [address] Dr. Mirza Sadler Hemoglobin (Bld) [Mass/Vol] 15.1 g/dL Normal 14.0-18.0 [facility] Comment on above: Performed By: #### P T, PTT #### [facility] [address] [place] [address] Dr. Mirza Sadler MCH (RBC) [Entitic mass] 30.0 pg Normal 25.9-34.0 [facility] Comment on above: Performed By: #### P T, PTT #### [facility] [address] [address] [address] Mirza Sadler MCHC (RBC) [Mass/Vol] 33.8 g/dL Normal 29.9-35.2 [facility] Comment on above: Performed By: #### P T, PTT #### [facility] [address] [place] [address] Dr. Mirza Sadler MCV (RBC) [Entitic vol] 88.9 fL Normal 80.0-94.0 [facility] Comment on above: Performed By: #### P T, PTT #### [facility] [address] [place] [address] Dr. Mirza Sadler PLT 199 103/ul Normal 150-450 [facility] Comment on above: Performed By: #### P T, PTT #### [facility] [address] [place] [address] Dr. Mirza Sadler RBC 5.03 106/ul Normal 4.70-6.10 [facility] Comment on above: Performed By: #### P T, PTT #### [facility] [address] [place] [address] Dr. Mirza Sadler WBC 8.7 103/ul Normal 4.0-11.0 [facility] Comment on above: Performed By: #### P T, PTT #### [facility] [address] [place] [address] Dr. Mirza Sadler IRON AND TIBCon 06-25-2022 % SATURATION 28.6 % Normal [facility] Comment on above: Performed By: #### B ICE GRINDER #### [facility] [address] [place] [address] Dr. Mirza Sadler Iron [Mass/Vol] 82.0 ug/dL Normal 65.0-175.[address] [facility] Comment on above: Performed By: #### B ICE GRINDER #### [facility] [address] [place] [address] Dr. Mirza Sadler TIBC DIRECT 287.0 ug/dL Normal 250.0-450. 0 [facility] Comment on above: Performed By: #### B ICE GRINDER #### [facility] [address] [address] [address] Mirza Sadler MAGNESIUMon 06-25-2022 Magnesium [Mass/Vol] 2.0 mg/dL Normal 1.8-2.4 [facility] Comment on above: Performed By: #### B ICE GRINDER #### [facility] [address] [address] [address] Mirza Sadler Office Visiton 06-25-2022 Follow-up visit [id number] Lani Lizama 1950 M Date Provider Department Center 06/25/2022 [id number] BRADY CARD [facility] Family History Problem Relation Age of Onset Heart attack Mother Other Father Other Brother Heart attack Maternal Grandmother Heart attack Maternal Grandfather Family Status - Relation Status Age at Mother Father Brother Maternal Grandmother Maternal Grandfather Level of Service:97092 [place] OFFICE/OUTPATIENT ESTABLISHED MOD MDM 30-39 MIN Reason for Visit and Comments: Chest Pain [269523] Coronary Artery Disease [187] Normal [facility] RENAL FUNCTION PANELon 06-25 Albumin [Mass/Vol] 4.2 g/dL Normal 3.4-5.0 [facility] Comment on above: Performed By: #### B ICE GRINDER #### [facility] [address] [place] [address] Dr. Mirza Sadler Calcium [Mass/Vol] 9.3 mg/dL Normal 8.5-10.1 [facility] Comment on above: Performed By: #### B ICE GRINDER #### [facility] [address] [address] [address] Mirza Sadler Chloride [Moles/Vol] 108 mmol/L Critically high 98-107 [facility] Comment on above: Performed By: #### B ICE GRINDER #### [facility] [address] [address] [address] Mirza Sadler CO2 [Moles/Vol] 29.5 mmol/L Normal 21.0-32.0 [facility] Comment on above: Performed By: #### B ICE GRINDER #### [facility] [address] [address] [address] Mirza Sadler Creatinine [Mass/Vol] 1.87 mg/dL Critically high 0.70-1.30 [facility] Comment on above: Performed By: #### B ICE GRINDER #### [facility] [address] [address] [address] Mirza Sadler EGFR-AF ETHIOPIAN 43 mL/min/1.73m2 Critically low >=60 [facility] Comment on above: Performed By: #### B ICE GRINDER #### [facility] [address] [address] [address] Mirza Sadler EGFR-NON AF ETHIOPIAN 36 mL/min/1.73m2 Critically low >=60 [facility] Comment on above: Performed By: #### B ICE GRINDER #### [facility] [address] [place] [address] Dr. Mirza Sadler Glucose [Mass/Vol] 181 mg/dL Critically high 74-106 [facility] Comment on above: Performed By: #### B ICE GRINDER #### [facility] [address] [place] [address] Dr. Mirza Sadler Phosphate [Mass/Vol] 4.8 mg/dL Critically high 2.6-4.7 [facility] Comment on above: Performed By: #### B ICE GRINDER #### [facility] [address] [place] [address] Dr. Mirza Sadler Potassium [Moles/Vol] 4.8 mmol/L Normal 3.5-5.1 [facility] Comment on above: Performed By: #### B ICE GRINDER #### [facility] [address] [place] [address] Dr. Mirza Sadler Sodium [Moles/Vol] 146 mmol/L Critically high 136-145 [facility] Comment on above: Performed By: #### B ICE GRINDER #### [facility] [address] [place] [address] Dr. Mirza Sadler Urea nitrogen [Mass/Vol] 40.0 mg/dL Critically high 7.0-18.0 [facility] Comment on above: Performed By: #### B ICE GRINDER #### [facility] [address] [place] [address] Dr. Mirza Sadler UA RANDOM W/MICROSCOPICon BACTERIA NONE SEEN Normal NONE SEEN [facility] Comment on above: Performed By: #### H STROPN #### [facility] [address] [place] [address] Dr. Mirza Sadler Bilirubin Ql (U) Negative Normal NEGATIVE [facility] Comment on above: Performed By: #### H STROPN #### [facility] [address] [place] [address] Dr. Mirza Sadler CAST NONE SEEN Normal NONE SEEN [facility] Comment on above: Performed By: #### H STROPN #### [facility] [address] [place] [address] Dr. Mirza Sadler Clarity (U) CLEAR Normal CLEAR [facility] Comment on above: Performed By: #### H STROPN #### [facility] [address] [place] [address] Dr. Mirza Sadler Color (U) LT. YELLOW Normal YELLOW [facility] Comment on above: Performed By: #### H STROPN #### [facility] [address] [place] [address] Dr. Mirza Sadler Crystals LM Nom (Urine sed) NONE SEEN Normal NONE SEEN [facility] Comment on above: Performed By: #### H STROPN #### [facility] [address] [place] [address] Dr. Mirza Sadler Epithelial cells LM Ql (Urine sed) FEW Abnormal NONE SEEN /RARE [facility] Comment on above: Performed By: #### H STROPN #### [facility] [address] [place] [address] Dr. Mirza Sadler Glucose Ql (U) 500 mg/dl Abnormal NEGATIVE [facility] Comment on above: Performed By: #### H STROPN #### [facility] [address] [place] [address] Dr. Mirza Sadler Hemoglobin Ql (U) Negative Normal NEGATIVE [facility] Comment on above: Performed By: #### H STROPN #### [facility] [address] [place] [address] Dr. Mirza Sadler Ketones Ql (U) Negative Normal NEGATIVE [facility] Comment on above: Performed By: #### H STROPN #### [facility] [address] [place] [address] Dr. Mirza Sadler LEUKOCYTES Negative Normal NEGATIVE [facility] Comment on above: Performed By: #### H STROPN #### [facility] [address] [place] [address] Dr. Mirza Sadler MUCOUS NONE SEEN Normal NONE SEEN [facility] Comment on above: Performed By: #### H STROPN #### [facility] [address] [place] [address] Dr. Mirza Sadler Nitrite Ql (U) Negative Normal NEGAT[facility] Comment on above: Performed By: #### H STROPN #### [facility] [address] [place] [address] Dr. Mirza Sadler pH (U) 5.5 [pH] Normal 5-9 [facility] Comment on above: Performed By: #### H STROPN #### [facility] [address] [place] [address] Dr. Mirza Sadler RBC 0-2 Normal 0-2 [facility] Comment on above: Performed By: #### H STROPN #### [facility] [address] [place] [address] Dr. Mirza Sadler SPEC GRAVITY 1.015 Normal 1.005-<=1. 025 [facility] Comment on above: Performed By: #### H STROPN #### [facility] [address] [place] [address] Dr. Mirza Sadler UA PROTEIN Negative Normal NEGATIVE/ TRACE [facility] Comment on above: Performed By: #### H STROPN #### [facility] [address] [place] [address] Dr. Mirza Sadler Urobilinogen Qn (U) 0.2 {Luisito'U}/dL Normal 0.2 - 1. 0 [facility] Comment on above: Performed By: #### H STROPN #### [facility] [address] [place] [address] Dr. Mirza Sadler WBC NONE SEEN Normal NONE SEEN [facility] Comment on above: Performed By: #### H STROPN #### [facility] [address] [place] [address] Dr. Mirza Sadler URIC ACID SERUMon 06-25-2022 Urate [Mass/Vol] 6.1 mg/dL Normal 3.5-7.2 [facility] Comment on above: Performed By: #### B ICE GRINDER #### [facility] [address] [place] [address] Dr. Mirza Sadler URINE T PROTEIN CREAT RATIOo n 06-25-2022 Protein (U) [Mass/Vol] 9.7 mg/dL Normal <=12.0 [facility] Comment on above: Performed By: #### C TEGAN MARIN #### [facility] [address] [place] [address] Dr. Mirza Sadler UR PROT CREAT RAT 0.14 Normal [facility] Comment on above: Performed By: #### C TEGAN MARIN #### [facility] [address] [place] [address] Dr. Mirza Sadler URINE CREAT 71.45 mg/dL Normal 20.00-300. 00 [facility] Comment on above: Performed By: #### C TEGAN MARIN #### [facility] [address] [place] [address] Dr. Mirza Sadler VITAMIN D 25 OHon 06-25-2022 VIT D 25-OH 44.7 ng/mL Normal [facility] Comment on above: Performed By: #### E RUR #### [facility] [address] [place] [address] Dr. Mirza Sadler VIT D RANGES SEE BELOW Normal [facility] Comment on above: Result Comment: <20 ng/mL Vit D deficient 20 - <30 ng/mL Vit D insufficient 30 - 100 ng/mL Vit D sufficient >100 ng/mL Potential Toxicity Performed By: #### E RUR #### [facility] [address] [place] [address] Dr. Mirza Sadler LIPID PROFILEon 06-18-2022 CHOL-HDL RATIO NORM SEE BELOW Normal [facility] Comment on above: Result Comment: 3.3 - 4.4 LOW RISK 4.4 - 7.1 AVERAGE RISK 7.1 - 11.0 MODERATE RISK >11.0 HIGH RISK Performed By: #### H STROPN #### [facility] [address] [address] [address] Mirza Sadler Cholesterol [Mass/Vol] 136 mg/dL Normal <=200 [facility] Comment on above: Performed By: #### H STROPN #### [facility] [address] [address] [address] Mizra Sadler Cholesterol in HDL [Mass/Vol] 38 mg/dL Critically low 40-60 [facility] Comment on above: Performed By: #### H STROPN #### [facility] [address] [address] [address] Mirza Sadler Cholesterol in LDL [Mass/Vol] 69.6 mg/dL Normal [facility] Comment on above: Performed By: #### H STROPN #### [facility] [address] [place] [address] Dr. Mirza Sadler Cholesterol.total/Cho lesterol in HDL [Mass ratio] 3.6 {ratio} Normal [facility] Comment on above: Performed By: #### H STROPN #### [facility] [address] [place] [address] Dr. Mirza Sadler HDL NORMAL > or = 60 mg/dl - LO W CARDIOVASCULAR RISK <40 mg/dl - HIGH CARDIOVASCULAR RISK Normal [facility] Comment on above: Performed By: #### H STROPN #### [facility] [address] [address] [address] Mirza Sadler LDL CALC NORMAL SEE BELOW Normal [facility] Comment on above: Result Comment: <100 mg/dl OPTIMAL 100 - 129 mg/dl NEAR OR ABOVE OPTIMAL 130 - 159 mg/dl BORDERLINE HIGH 160 - 189 mg/dl HIGH >190 mg/dl VERY HIGH Performed By: #### H STROPN #### [facility] [address] [address] [address] Mirza Sadler Triglyceride [Mass/Vol] 142 mg/dL Normal <=150 [facility] Comment on above: Performed By: #### H STROPN #### [facility] [address] [address] [address] Mirza Sadler VLDL CALC 28.4 mg/dL Normal [facility] Comment on above: Performed By: #### H STROPN #### [facility] [address] [address] [address] CHEST WO CONon [...] FLANAGAN Date: 2022-06-05 16:58 Normal [facility] CT CHEST WO CON [employer] Other PROF CHEM 8 (BAS METB)on Anion gap [Moles/Vol] 10.2 mmol/L Normal [facility] Comment on above: Performed By: #### B ICE GRINDER #### [facility] [address] [address] [address] Mirza Sadler Calcium [Mass/Vol] 8.9 mg/dL Normal 8.5-10.1 [facility] Comment on above: Performed By: #### B ICE GRINDER #### [facility] [address] [address] [address] Mirza Sadler Chloride [Moles/Vol] 101 mmol/L Normal 98-107 [facility] Comment on above: Performed By: #### B ICE GRINDER #### [facility] [address] [address] [address] Mirza Sadler CO2 [Moles/Vol] 31.2 mmol/L Normal 21.0-32.0 [facility] Comment on above: Performed By: #### B ICE GRINDER #### [facility] [address] [address] [address] Mirza Sadler Creatinine [Mass/Vol] 1.91 mg/dL Critically high 0.70-1.30 [facility] Comment on above: Performed By: #### B ICE GRINDER #### [facility] [address] [address] [address] Mirza Sadler EGFR-AF ETHIOPIAN 42 mL/min/1.73m2 Critically low >=60 [facility] Comment on above: Performed By: #### B ICE GRINDER #### [facility] [address] [address] [address] Mirza Sadler EGFR-NON AF ETHIOPIAN 35 mL/min/1.73m2 Critically low >=60 [facility] Comment on above: Performed By: #### B ICE GRINDER #### [facility] [address] [address] [address] Mirza Sadler Glucose [Mass/Vol] 242 mg/dL Critically high 74-106 [facility] Comment on above: Performed By: #### B ICE GRINDER #### [facility] [address] [address] [address] Mirza Sadler Potassium [Moles/Vol] 4.4 mmol/L Normal 3.5-5.1 [facility] Comment on above: Performed By: #### B ICE GRINDER #### [facility] [address] [address] [address] Mirza Sadler Sodium [Moles/Vol] 138 mmol/L Normal 136-145 [facility] Comment on above: Performed By: #### B ICE GRINDER #### [facility] [address] [address] [address] Mirza Sadler Urea nitrogen [Mass/Vol] 33.0 mg/dL Critically high 7.0-18.0 [facility] Comment on above: Performed By: #### B ICE GRINDER #### [facility] [address] [address] [address] Mirza Sadler Urea nitrogen/Creatinine [Mass ratio] 17.3 mg/mg Normal [facility] Comment on above: Performed By: #### B ICE GRINDER #### [facility] [address] [address] [address] Mirza Sadler PROF CHEM 8 (BAS METB)on Anion gap [Moles/Vol] 10.7 mmol/L Normal [facility] Comment on above: Performed By: #### P T, PTT #### [facility] [address] [address] [address] Mirza Sadler Calcium [Mass/Vol] 8.9 mg/dL Normal 8.5-10.1 [facility] Comment on above: Performed By: #### P T, PTT #### [facility] [address] [address] [address] Mirza Sadler Chloride [Moles/Vol] 104 mmol/L Normal 98-107 [facility] Comment on above: Performed By: #### P T, PTT #### [facility] [address] [address] [address] Mirza Sadler CO2 [Moles/Vol] 29.4 mmol/L Normal 21.0-32.0 [facility] Comment on above: Performed By: #### P T, PTT #### [facility] [address] [address] [address] Mirza Sadler Creatinine [Mass/Vol] 1.75 mg/dL Critically high 0.70-1.30 [facility] Comment on above: Performed By: #### P T, PTT #### [facility] [address] [address] [address] Mirza Sadler EGFR-AF ETHIOPIAN 47 mL/min/1.73m2 Critically low >=60 [facility] Comment on above: Performed By: #### P T, PTT #### [facility] [address] [address] [address] Mirza Sadler EGFR-NON AF ETHIOPIAN 39 mL/min/1.73m2 Critically low >=60 [facility] [facility] Comment on above: Performed By: #### P T, PTT #### [facility] [address] [address] [address] Mirza Sadler Glucose [Mass/Vol] 191 mg/dL Critically high 74-106 [facility] Comment on above: Performed By: #### P T, PTT #### [facility] [address] [address] [address] Mirza Sadler Potassium [Moles/Vol] 4.1 mmol/L Normal 3.5-5.1 [facility] Comment on above: Performed By: #### P T, PTT #### [facility] [address] [address] [address] Mirza Sadler Sodium [Moles/Vol] 140 mmol/L Normal 136-145 [facility] Comment on above: Performed By: #### P T, PTT #### [facility] [address] [address] [address] Mirza Sadler Urea nitrogen [Mass/Vol] 31.0 mg/dL Critically high 7.0-18.0 [facility] Comment on above: Performed By: #### P T, PTT #### [facility] [address] [place] [address] Dr. Mirza Sadler Urea nitrogen/Creatinine [Mass ratio] 17.7 mg/mg Normal [facility] Comment on above: Performed By: #### P T, PTT #### [facility] [address] [address] [address] Mirza Sadler XR CHEST 2 Von [...] FLANAGAN Date: 2022-03-22 16:12 Normal [facility] A1C HEMOGLOBINon 03-20-2022 HbA1c (Bld) [Mass fraction] 6.7 % [employer] Other Glucose - FINGER STICKon Glucose [Mass/Vol] 193 mg/dL [employer] Other HbA1c (Bld) [Mass fraction]o n 03-20-2022 A1C HEMOGLOBIN [employer] Other BNPon 03-13-2022 Natriuretic peptide B (Bld) [Mass/Vol] 4825.0 pg/mL Critically high <=900.0 [facility] Comment on above: Performed By: #### E RUR #### [facility] [address] [place] [address] Dr. Mirza Sadler CBC AUTO DIFFon 03-13-2022 BASO # 0.0 103/ul Normal 0.0-0.1 [facility] Comment on above: Performed By: #### E RUR #### [facility] [address] [place] [address] Dr. Mirza Sadler Basophils/100 WBC (Bld) 0.6 % Normal 0.2-2.0 [facility] Comment on above: Performed By: #### E RUR #### [facility] [address] [place] [address] Dr. Mirza Sadler EO # 0.1 103/ul Normal 0.0-0.7 [facility] Comment on above: Performed By: #### E RUR #### [facility] [address] [place] [address] Dr. Mirza Sadler Eosinophils/100 WBC (Bld) 1.8 % Normal 0.9-7.0 [facility] Comment on above: Performed By: #### E RUR #### [facility] [address] [place] [address] Dr. Mirza Sadler Erythrocyte distribution width (RBC) [Ratio] 14.4 % Normal 11.0-15.0 [facility] Comment on above: Performed By: #### E RUR #### [facility] [address] [place] [address] Dr. Mirza Sadler Hematocrit (Bld) [Volume fraction] 36.1 % Critically low 42.0-54.0 [facility] Comment on above: Performed By: #### E RUR #### [facility] [address] [place] [address] Dr. Mirza Sadler Hemoglobin (Bld) [Mass/Vol] 11.9 g/dL Critically low 14.0-18.0 [facility] Comment on above: Performed By: #### E RUR #### [facility] [address] [place] [address] Dr. Mirza Sadler IG # 0.02 10e3/ul Normal 0.00-0.03 [facility] Comment on above: Performed By: #### E RUR #### [facility] [address] [place] [address] Dr. Mirza Sadler IG % 0.3 % Normal 0.0-0.5 [facility] Comment on above: Performed By: #### E RUR #### [facility] [address] [place] [address] Dr. Mirza Sadler LYMPH # 1.5 103/ul Normal 1.2-3.8 [facility] Comment on above: Performed By: #### E RUR #### [facility] [address] [place] [address] Dr. Mirza Sadler Lymphocytes/100 WBC (Bld) 22.6 % Normal 20.5-60.0 [facility] Comment on above: Performed By: #### E RUR #### [facility] [address] [place] [address] Dr. Mirza Sadler MANUAL DIFF REQ NO Normal [facility] Comment on above: Performed By: #### E RUR #### [facility] [address] [place] [address] Dr. Mirza Sadler MCH (RBC) [Entitic mass] 29.0 pg Normal 25.9-34.0 [facility] Comment on above: Performed By: #### E RUR #### [facility] [address] [place] [address] Dr. Mirza Sadler MCHC (RBC) [Mass/Vol] 33.0 g/dL Normal 29.9-35.2 [facility] Comment on above: Performed By: #### E RUR #### [facility] [address] [place] [address] Dr. Mirza Sadler MCV (RBC) [Entitic vol] 88.0 fL Normal 80.0-94.0 [facility] Comment on above: Performed By: #### E RUR #### [facility] [address] [place] [address] Dr. Mirza Sadler MONO # 0.7 103/ul Normal 0.3-0.8 [facility] Comment on above: Performed By: #### E RUR #### [facility] [address] [place] [address] Dr. Mirza Sadler Monocytes/100 WBC (Bld) 10.2 % Normal 1.7-12.0 [facility] Comment on above: Performed By: #### E RUR #### [facility] [address] [place] [address] Dr. Mirza Sadler NEUT # 4.3 103/ul Normal 1.4-6.5 [facility] Comment on above: Performed By: #### E RUR #### [facility] [address] [place] [address] Dr. Mirza Sadler Neutrophils/100 WBC (Bld) 64.5 % Normal 43.0-75.0 [facility] Comment on above: Performed By: #### E RUR #### [facility] [address] [place] [address] Dr. Mirza Sadler Platelet mean volume (Bld) [Entitic vol] 9.7 fL Normal 9.5-13.5 [facility] Comment on above: Performed By: #### E RUR #### [facility] [address] [place] [address] Dr. Mirza Sadler PLT 149 103/ul Critically low 150-450 [facility] Comment on above: Performed By: #### E RUR #### [facility] [address] [place] [address] Dr. Mirza Sadler RBC 4.10 106/ul Critically low 4.70-6.10 [facility] Comment on above: Performed By: #### E RUR #### [facility] [address] [place] [address] Dr. Mirza Sadler WBC 6.6 103/ul Normal 4.0-11.0 [facility] Comment on above: Performed By: #### E RUR #### [facility] [address] [place] [address] Dr. Mirza Sadler PROF CHEM 8 (BAS METB)on Anion gap [Moles/Vol] 14.6 mmol/L Normal [facility] Comment on above: Performed By: #### E RUR #### [facility] [address] [place] [address] Dr. Mirza Sadler Calcium [Mass/Vol] 8.5 mg/dL Normal 8.5-10.1 [facility] Comment on above: Performed By: #### E RUR #### [facility] [address] [place] [address] Dr. Mirza Sadler Chloride [Moles/Vol] 104 mmol/L Normal 98-107 [facility] Comment on above: Performed By: #### E RUR #### [facility] [address] [place] [address] Dr. Mirza Sadler CO2 [Moles/Vol] 22.7 mmol/L Normal 21.0-32.0 [facility] Comment on above: Performed By: #### E RUR #### [facility] [address] [place] [address] Dr. Mirza Sadler Creatinine [Mass/Vol] 1.78 mg/dL Critically high 0.70-1.30 [facility] Comment on above: Performed By: #### E RUR #### [facility] [address] [place] [address] Dr. Mirza Sadler EGFR-AF ETHIOPIAN 46 mL/min/1.73m2 Critically low >=60 [facility] Comment on above: Performed By: #### E RUR #### [facility] [address] [place] [address] Dr. Mirza Sadler EGFR-NON AF ETHIOPIAN 38 mL/min/1.73m2 Critically low >=60 [facility] Comment on above: Performed By: #### E RUR #### [facility] [address] [place] [address] Dr. Mirza Sadler Glucose [Mass/Vol] 121 mg/dL Critically high 74-106 [facility] Comment on above: Performed By: #### E RUR #### [facility] [address] [place] [address] Dr. Mirza Sadler Potassium [Moles/Vol] 3.3 mmol/L Critically low 3.5-5.1 [facility] Comment on above: Performed By: #### E RUR #### [facility] [address] [place] [address] Dr. Mirza Sadler Sodium [Moles/Vol] 138 mmol/L Normal 136-145 [facility] Comment on above: Performed By: #### E RUR #### [facility] [address] [place] [address] Dr. Mirza Sadler Urea nitrogen [Mass/Vol] 30.0 mg/dL Critically high 7.0-18.0 [facility] Comment on above: Performed By: #### E RUR #### [facility] [address] [place] [address] Dr. Mirza Sadler Urea nitrogen/Creatinine [Mass ratio] 16.9 mg/mg Normal [facility] Comment on above: Performed By: #### E RUR #### [facility] [address] [place] [address] Dr. Mirza Sadler BNPon 03-12-2022 Natriuretic peptide B (Bld) [Mass/Vol] 7452.0 pg/mL Critically high <=900.0 [facility] Comment on above: Performed By: #### C MP, CMADM #### [facility] [address] [place] [address] Dr. Mirza Sadler CBC AUTO DIFFon 03-12-2022 BASO # 0.0 103/ul Normal 0.0-0.1 [facility] Comment on above: Performed By: #### P T, PTT #### [facility] [address] [place] [address] Dr. Mirza Sadler Basophils/100 WBC (Bld) 0.4 % Normal 0.2-2.0 [facility] Comment on above: Performed By: #### P T, PTT #### [facility] [address] [place] [address] Dr. Mirza Sadler EO # 0.0 103/ul Normal 0.0-0.7 [facility] Comment on above: Performed By: #### P T, PTT #### [facility] [address] [place] [address] Dr. Mirza Sadler Eosinophils/100 WBC (Bld) 0.2 % Critically low 0.9-7.0 [facility] Comment on above: Performed By: #### P T, PTT #### [facility] [address] [place] [address] Dr. Mirza Sadler Erythrocyte distribution width (RBC) [Ratio] 14.6 % Normal 11.0-15.0 [facility] Comment on above: Performed By: #### P T, PTT #### [facility] [address] [place] [address] Dr. Mirza Sadler Hematocrit (Bld) [Volume fraction] 37.8 % Critically low 42.0-54.0 [facility] Comment on above: Performed By: #### P T, PTT #### [facility] [address] [place] [address] Dr. Mirza Sadler Hemoglobin (Bld) [Mass/Vol] 12.2 g/dL Critically low 14.0-18.0 [facility] Comment on above: Performed By: #### P T, PTT #### [facility] [address] [place] [address] Dr. Mirza Sadler IG # 0.03 10e3/ul Normal 0.00-0.03 [facility] Comment on above: Performed By: #### P T, PTT #### [facility] [address] [place] [address] Dr. Mirza Sadler IG % 0.3 % Normal 0.0-0.5 [facility] Comment on above: Performed By: #### P T, PTT #### [facility] [address] [place] [address] Dr. Mirza Sadler LYMPH # 1.2 103/ul Normal 1.2-3.8 [facility] Comment on above: Performed By: #### P T, PTT #### [facility] [address] [place] [address] Dr. Mirza Sadler Lymphocytes/100 WBC (Bld) 11.5 % Critically low 20.5-60.0 [facility] Comment on above: Performed By: #### P T, PTT #### [facility] [address] [place] [address] Dr. Mirza Sadler MANUAL DIFF REQ NO Normal [facility] Comment on above: Performed By: #### P T, PTT #### [facility] [address] [place] [address] Dr. Mirza Sadler MCH (RBC) [Entitic mass] 29.0 pg Normal 25.9-34.0 [facility] Comment on above: Performed By: #### P T, PTT #### [facility] [address] [place] [address] Dr. Mirza Sadler MCHC (RBC) [Mass/Vol] 32.3 g/dL Normal 29.9-35.2 [facility] Comment on above: Performed By: #### P T, PTT #### [facility] [address] [place] [address] Dr. Mirza Sadler MCV (RBC) [Entitic vol] 89.8 fL Normal 80.0-94.0 [facility] Comment on above: Performed By: #### P T, PTT #### [facility] [address] [place] [address] Dr. Mirza Sadler MONO # 0.7 103/ul Normal 0.3-0.8 [facility] Comment on above: Performed By: #### P T, PTT #### [facility] [address] [place] [address] Dr. Mirza Sadler Monocytes/100 WBC (Bld) 6.8 % Normal 1.7-12.0 [facility] Comment on above: Performed By: #### P T, PTT #### [facility] [address] [place] [address] Dr. Mirza Sadler NEUT # 8.5 103/ul Critically high 1.4-6.[address] [facility] Comment on above: Performed By: #### P T, PTT #### [facility] [address] [place] [address] Dr. Mirza Sadler Neutrophils/100 WBC (Bld) 80.8 % Critically high 43.0-75.0 [facility] Comment on above: Performed By: #### P T, PTT #### [facility] [address] [place] [address] Dr. Mirza Sadler Platelet mean volume (Bld) [Entitic vol] 9.8 fL Normal 9.5-13.5 [facility] Comment on above: Performed By: #### P T, PTT #### [facility] [address] [place] [address] Dr. Mirza Sadler PLT 165 103/ul Normal 150-450 [facility] Comment on above: Performed By: #### P T, PTT #### [facility] [address] [place] [address] Dr. Mirza Sadler RBC 4.21 106/ul Critically low 4.70-6.[address] [facility] Comment on above: Performed By: #### P T, PTT #### [facility] [address] [place] [address] Dr. Mirza Sadler WBC 10.5 103/ul Normal 4.0-11.0 [facility] Comment on above: Performed By: #### P T, PTT #### [facility] [address] [address] [address] Miraz Sadler ECHOCARDIO M/2D COMPLETEon 1 05-13-2021 ECHOCARDIO M/2D COMPLETE Patient: LANI LIZAMA Exam Date: 03/12/2022 : 1950 Gender:M Ordering : DR OBDULIO ALVA . Admission #: [id number] Family : DR HARLEY CRESPO D.Bekcy Order #: [id number] CLICK HERE TO VIEW EXAM ECHOCARDIOGRAM REPORT PROCEDURE: CARDIO PULMONARY ECHOCARDIO M/2D COMP INDICATIONS: Elevated TROP and BNPChest pain, recent RI, CHF, CBAG x 5, PTCA x 7 [...] on 03/13/2022 at 17:42 Normal [facility] PROF CHEM 8 (BAS METB)on Anion gap [Moles/Vol] 17.8 mmol/L Normal [facility] Comment on above: Performed By: #### C TEGAN MARIN #### [facility] [address] [place] [address] Dr. Mirza Sdaler Calcium [Mass/Vol] 8.6 mg/dL Normal 8.5-10.1 [facility] Comment on above: Performed By: #### C TEGAN MARIN #### [facility] [address] [place] [address] Dr. Mirza Sadler Chloride [Moles/Vol] 103 mmol/L Normal 98-107 [facility] Comment on above: Performed By: #### C TEGAN MARIN #### [facility] [address] [place] [address] Dr. Mirza Sadler CO2 [Moles/Vol] 22.3 mmol/L Normal 21.0-32.0 [facility] Comment on above: Performed By: #### C TANIA, CMADM #### [facility] [address] [place] [address] Dr. Mirza Sadler Creatinine [Mass/Vol] 1.81 mg/dL Critically high 0.70-1.30 [facility] Comment on above: Performed By: #### C ATNIA, CMADM #### [facility] [address] [address] [address] Mirza Sadler EGFR-AF ETHIOPIAN 45 mL/min/1.73m2 Critically low >=60 [facility] Comment on above: Performed By: #### C TANIA, CMADM #### [facility] [address] [place] [address] Dr. Mirza Sadler EGFR-NON AF ETHIOPIAN 37 mL/min/1.73m2 Critically low >=60 [facility] Comment on above: Performed By: #### C TANIA, CMADM #### [facility] [address] [place] [address] Dr. Mirza Sadler Glucose [Mass/Vol] 161 mg/dL Critically high 74-106 T [facility] Comment on above: Performed By: #### C TANIA, CMADM #### [facility] [address] [place] [address] Dr. Mirza Sadler Potassium [Moles/Vol] 4.1 mmol/L Normal 3.5-5.1 [facility] Comment on above: Performed By: #### C TANIA, CMADM #### [facility] [address] [place] [address] Dr. Mirza Sadler Sodium [Moles/Vol] 139 mmol/L Normal 136-145 [facility] Comment on above: Performed By: #### C TANIA, CMADM #### [facility] [address] [place] [address] Dr. Mirza Sadler Urea nitrogen [Mass/Vol] 28.0 mg/dL Critically high 7.0-18.0 [facility] Comment on above: Performed By: #### C TANIA, CMADM #### [facility] [address] [place] [address] Dr. Mirza Sadler Urea nitrogen/Creatinine [Mass ratio] 15.5 mg/mg Normal [facility] Comment on above: Performed By: #### C TANIA, CMASELENA #### [facility] [address] [place] [address] Dr. Mirza Sadler TROPONIN, HIGH SENSITIVITYon 03-12-2022 HSTROP 46170.5 pg/mL Critically high 4.0-76.1 [facility] Comment on above: Result Comment: CUT- OFF POINTS HAVE BEEN ESTABLISHED BASED ON THE FOURTH UNIVERSAL DEFINITIONS OF MYOCARDIAL INFARCTION. THE UPPER REFERENCE LIMIT (URL) OF TROPONIN, DEFINED THE 99TH PERCENTILE OF cTnI DISTRIBUTION IN A REFERENCE POPULATION, HAS BEEN CONFIRMED THE DECISION THRESHOLD FOR RI DIAGNOSIS. Performed By: #### C TANIA, TEGAN #### [facility] [address] [place] [address] Dr. Mirza Sadler BNPon 03-11-2022 Natriuretic peptide B (Bld) [Mass/Vol] 1378.0 pg/mL Critically high <=900.0 [facility] Comment on above: Performed By: #### P T, PTT #### [facility] [address] [place] [address] Dr. Mirza Sadler CARDIAC PARUL 3-6on 2 CK [Catalytic activity/Vol] 139 U/L Normal 39-308 [facility] Comment on above: Performed By: #### E RUR #### [facility] [address] [place] [address] Dr. Mirza Sadler CK.MB [Mass/Vol] 7.50 ng/mL Critically high <=3.60 [facility] Comment on above: Performed By: #### E RUR #### [facility] [address] [place] [address] Dr. Mirza Sadler HSTROP 1419.3 pg/mL Critically high 4.0-76.1 [facility] Comment on above: Result Comment: CUT- OFF POINTS HAVE BEEN ESTABLISHED BASED ON THE FOURTH UNIVERSAL DEFINITIONS OF MYOCARDIAL INFARCTION. THE UPPER REFERENCE LIMIT (URL) OF TROPONIN, DEFINED THE 99TH PERCENTILE OF cTnI DISTRIBUTION IN A REFERENCE POPULATION, HAS BEEN CONFIRMED THE DECISION THRESHOLD FOR RI DIAGNOSIS. Performed By: #### E RUR #### [facility] [address] [place] [address] Dr. Mirza Sadler CBC AUTO DIFFon 03-11-2022 BASO # 0.1 103/ul Normal 0.0-0.1 [facility] Comment on above: Performed By: #### E RUR #### [facility] [address] [place] [address] Dr. Mirza Sadler Basophils/100 WBC (Bld) 0.5 % Normal 0.2-2.0 [facility] Comment on above: Performed By: #### E RUR #### [facility] [address] [place] [address] Dr. Mirza Sadler EO # 0.2 103/ul Normal 0.0-0.7 [facility] Comment on above: Performed By: #### E RUR #### [facility] [address] [place] [address] Dr. Mirza Sadler Eosinophils/100 WBC (Bld) 1.3 % Normal 0.9-7.0 [facility] Comment on above: Performed By: #### E RUR #### [facility] [address] [place] [address] Dr. Mirza Sadler Erythrocyte distribution width (RBC) [Ratio] 14.6 % Normal 11.0-15.0 [facility] Comment on above: Performed By: #### E RUR #### [facility] [address] [place] [address] Dr. Mirza Sadler Hematocrit (Bld) [Volume fraction] 43.1 % Normal 42.0-54.0 [facility] Comment on above: Performed By: #### E RUR #### [facility] [address] [place] [address] Dr. Mirza Sadler Hemoglobin (Bld) [Mass/Vol] 14.2 g/dL Normal 14.0-18.0 [facility] Comment on above: Performed By: #### E RUR #### [facility] [address] [place] [address] Dr. Mirza Sadler IG # 0.07 10e3/ul Critically high 0.00-0.03 [facility] Comment on above: Performed By: #### E RUR #### [facility] [address] [place] [address] Dr. Mirza Sadler IG % 0.5 % Normal 0.0-0.5 [facility] Comment on above: Performed By: #### E RUR #### [facility] [address] [place] [address] Dr. Mirza Sadler LYMPH # 1.3 103/ul Normal 1.2-3.8 [facility] Comment on above: Performed By: #### E RUR #### [facility] [address] [place] [address] Dr. Mirza Sadler Lymphocytes/100 WBC (Bld) 8.6 % Critically low 20.5-60.0 [facility] Comment on above: Performed By: #### E RUR #### [facility] [address] [place] [address] Dr. Mirza Sadler MANUAL DIFF REQ NO Normal [facility] Comment on above: Performed By: #### E RUR #### [facility] [address] [place] [address] Dr. Mirza Sadelr MCH (RBC) [Entitic mass] 29.3 pg Normal 25.9-34.0 [facility] Comment on above: Performed By: #### E RUR #### [facility] [address] [place] [address] Dr. Mirza Sadler MCHC (RBC) [Mass/Vol] 32.9 g/dL Normal 29.9-35.2 [facility] Comment on above: Performed By: #### E RUR #### [facility] [address] [place] [address] Dr. Mirza Sadler MCV (RBC) [Entitic vol] 88.9 fL Normal 80.0-94.0 [facility] Comment on above: Performed By: #### E RUR #### [facility] [address] [place] [address] Dr. Mirza Sadler MONO # 0.7 103/ul Normal 0.3-0.8 [facility] Comment on above: Performed By: #### E RUR #### [facility] [address] [place] [address] Dr. Mirza Sadler Monocytes/100 WBC (Bld) 4.3 % Normal 1.7-12.0 [facility] Comment on above: Performed By: #### E RUR #### [facility] [address] [place] [address] Dr. Mirza Sadler NEUT # 12.8 103/ul Critically high 1.4-6.5 [facility] Comment on above: Performed By: #### E RUR #### [facility] [address] [place] [address] Dr. Mirza Sadler Neutrophils/100 WBC (Bld) 84.8 % Critically high 43.0-75.0 [facility] Comment on above: Performed By: #### E RUR #### [facility] [address] [place] [address] Dr. Mirza Sadler Platelet mean volume (Bld) [Entitic vol] 9.9 fL Normal 9.5-13.5 [facility] Comment on above: Performed By: #### E RUR #### [facility] [address] [place] [address] Dr. Mirza Sadler PLT 201 103/ul Normal 150-450 [facility] Comment on above: Performed By: #### E RUR #### [facility] [address] [place] [address] Dr. Mirza Sadler RBC 4.85 106/ul Normal 4.70-6.10 [facility] Comment on above: Performed By: #### E RUR #### [facility] [address] [place], [place] [id number] Dr. Mirza Sadler WBC 15.0 103/ul Critically high 4.0-11.[address] [facility] Comment on above: Performed By: #### E RUR #### [facility] [address] [place] [address] Dr. Mirza Sadler CULTURE BLOODon 03-11-2022 Microscopic examination of blood, culture Culture Observations: NO GROWTH AT 5 DAYS. Normal [facility] Comment on above: Performed By: #### H STROPN #### [facility] [address] [place] [address] Dr. Mirza Sadler Microscopic examination of blood, culture Culture Observations: NO GROWTH AT 5 DAYS. Normal [facility] Comment on above: Performed By: #### H STROPN #### [facility] [address] [place] [address] Dr. Mirza Sadler Covid-19 PCR ([facility])on 03-01 SARS-CoV-2 (COVID-19) RNA RAMO+probe Ql (Unsp spec) Not detected Normal NOT DETECTED [facility] Comment on above: Result Comment: When diagnostic [...] for this test is supported by the [employer] of [employer] and Human Service's declaration that [...] used). Performed By: #### H STROPN #### [facility] [address] [place] [address] Dr. Mirza Sadler ER URINE PROFILEon 2 Bilirubin Ql (U) Negative Normal NEGATIVE [facility] Comment on above: Performed By: #### E RUR #### [facility] [address] [place] [address] Dr. Mirza Sadler Clarity (U) CLEAR Normal CLEAR [facility] Comment on above: Performed By: #### E RUR #### [facility] [address] [place] [address] Dr. Mirza Sadler Color (U) LT. YELLOW Normal YELLOW [facility] Comment on above: Performed By: #### E RUR #### [facility] [address] [place] [address] Dr. Mirza BUSTILLO A micrscopic examina tion will be performed if indicated. Normal [facility] Comment on above: Performed By: #### E RUR #### [facility] [address] [place] [address] Dr. Mirza Sadler Glucose Ql (U) >1000 Abnormal NEGATIVE [facility] Comment on above: Performed By: #### E RUR #### [facility] [address] [place] [address] Dr. Mirza Sadler Hemoglobin Ql (U) Negative Normal NEGATIVE [facility] Comment on above: Performed By: #### E RUR #### [facility] [address] [place] [address] Dr. Mirza Sadler Ketones Ql (U) 15 mg/dl Abnormal NEGATIVE [facility] Comment on above: Performed By: #### E RUR #### [facility] [address] [place] [address] Dr. Mirza Sadler LEUKOCYTES Negative Normal NEGATIVE [facility] Comment on above: Performed By: #### E RUR #### [facility] [address] [place] [address] Dr. Mirza Sadler Nitrite Ql (U) Negative Normal NEGATIVE [facility] Comment on above: Performed By: #### E RUR #### [facility] [address] [place] [address] Dr. Mirza Sadler pH (U) 5.0 [pH] Normal 5-9 [facility] Comment on above: Performed By: #### E RUR #### [facility] [address] [place] [address] Dr. Mirza Sadler SPEC GRAVITY 1.020 Normal 1.005-<=1. 025 [facility] Comment on above: Performed By: #### E RUR #### [facility] [address] [place] [address] Dr. Mirza Sadler UA PROTEIN TRACE Normal NEGATIVE/ TRACE [facility] Comment on above: Performed By: #### E RUR #### [facility] [address] [place] [address] Dr. Mirza Sadler UR MICRO IND NOT INDICATED Normal [facility] Comment on above: Performed By: #### E RUR #### [facility] [address] [place] [address] Dr. Mirza Sadler Urobilinogen Qn (U) 0.2 {Luisito'U}/dL Normal 0.2 - 1. 0 [facility] Comment on above: Performed By: #### E RUR #### [facility] [address] [place] [address] Dr. Mirza Sadler POINT OF CARE GLUCOSEon 03-01 Glucose [Mass/Vol] 161 mg/dL Critically high 74-106 [facility] Comment on above: Performed By: #### P T, PTT #### [facility] [address] [place] [address] Dr. Mirza Sadler PROF 14(COMP METB)on 022 Albumin [Mass/Vol] 4.3 g/dL Normal 3.4-5.0 [facility] Comment on above: Performed By: #### P T, PTT #### [facility] [address] [place] [address] Dr. Mirza Sadler Albumin/Globulin [Mass ratio] 1.1 {ratio} Normal [facility] Comment on above: Performed By: #### P T, PTT #### [facility] [address] [place] [address] Dr. Mirza Sadler ALP [Catalytic activity/Vol] 156 U/L Critically high 46-116 [facility] Comment on above: Performed By: #### P T, PTT #### [facility] [address] [place] [address] Dr. Mirza Sadler ALT [Catalytic activity/Vol] 24 U/L Normal 16-63 [facility] Comment on above: Performed By: #### P T, PTT #### [facility] [address] [place] [address] Dr. Mirza Sadler Anion gap [Moles/Vol] 16.7 mmol/L Normal Th [facility] Comment on above: Performed By: #### P T, PTT #### [facility] [address] [address] [address] Mirza Sadler AST [Catalytic activity/Vol] 21 U/L Normal 15-37 [facility] Comment on above: Performed By: #### P T, PTT #### [facility] [address] [address] [address] Mirza Sadler Bilirubin [Mass/Vol] 1.1 mg/dL Critically high 0.2-1.0 [facility] Comment on above: Performed By: #### P T, PTT #### [facility] [address] [place] [address] Dr. Mirza Sadler Calcium [Mass/Vol] 8.8 mg/dL Normal 8.5-10.1 [facility] Comment on above: Performed By: #### P T, PTT #### [facility] [address] [place] [address] Dr. Mirza Sadler Chloride [Moles/Vol] 105 mmol/L Normal 98-107 [facility] Comment on above: Performed By: #### P T, PTT #### [facility] [address] [place] [address] Dr. Mirza Sadler CO2 [Moles/Vol] 25.0 mmol/L Normal 21.0-32.0 [facility] Comment on above: Performed By: #### P T, PTT #### [facility] [address] [place] [address] Dr. Mirza Sadler Creatinine [Mass/Vol] 1.57 mg/dL Critically high 0.70-1.30 [facility] Comment on above: Performed By: #### P T, PTT #### [facility] [address] [place] [address] Dr. Mirza Sadler EGFR-AF ETHIOPIAN 53 mL/min/1.73m2 Critically low >=60 [facility] Comment on above: Performed By: #### P T, PTT #### [facility] [address] [address] [address] Mirza Sadler EGFR-NON AF ETHIOPIAN 44 mL/min/1.73m2 Critically low >=60 [facility] Comment on above: Performed By: #### P T, PTT #### [facility] [address] [address] [address] Mirza Sadler Globulin (S) [Mass/Vol] 3.9 g/dL Normal [facility] Comment on above: Performed By: #### P T, PTT #### [facility] [address] [address] [address] Mirza Sadler Glucose [Mass/Vol] 188 mg/dL Critically high 74-106 [facility] Comment on above: Performed By: #### P T, PTT #### [facility] [address] [address] [address] Mirza Sadler Potassium [Moles/Vol] 3.7 mmol/L Normal 3.5-5.1 [facility] Comment on above: Performed By: #### P T, PTT #### [facility] [address] [address] [address] Mirza Sadler Protein [Mass/Vol] 8.2 g/dL Normal 6.4-8.2 [facility] Comment on above: Performed By: #### P T, PTT #### [facility] [address] [address] [address] Mirza Sadler Sodium [Moles/Vol] 143 mmol/L Normal 136-145 [facility] Comment on above: Performed By: #### P T, PTT #### [facility] [address] [address] [address] Mirza Sadler Urea nitrogen [Mass/Vol] 20.0 mg/dL Critically high 7.0-18.0 [facility] Comment on above: Performed By: #### P T, PTT #### [facility] [address] [address] [address] Mirza Sadler Urea nitrogen/Creatinine [Mass ratio] 12.7 mg/mg Normal [facility] Comment on above: Performed By: #### P T, PTT #### [facility] [address] [place] [address] Dr. Mirza Sadler RESPIRATORY PANEL PLUSon Adenovirus Not detected Normal NOT DETECTED [facility] Comment on above: Performed By: #### P T, PTT #### [facility] [address] [place] [address] Dr. Mirza Ball Parapertusis Not detected Normal NOT DETECTED [facility] Comment on above: Performed By: #### P T, PTT #### [facility] [address] [place] [address] Dr. Mirza Ball Pertussis Not detected Normal NOT DETECTED [facility] Comment on above: Performed By: #### P T, PTT #### [facility] [address] [place] [address] Dr. Mirza Sadler Chlamydia Pneumoniae Not detected Normal NOT DETECTED [facility] Comment on above: Performed By: #### P T, PTT #### [facility] [address] [place] [address] Dr. Mirza Sadler Coronavirus 229E Not detected Normal NOT DETECTED [facility] Comment on above: Performed By: #### P T, PTT #### [facility] [address] [place] [address] Dr. Mirza Sadler Coronavirus HKU1 Not detected Normal NOT DETECTED [facility] Comment on above: Performed By: #### P T, PTT #### [facility] [address] [place] [address] Dr. Mirza Sadler Coronavirus NL63 Not detected Normal NOT DETECTED [facility] Comment on above: Performed By: #### P T, PTT #### [facility] [address] [place] [address] Dr. Mirza Sadler Coronavirus OC43 Not detected Normal NOT DETECTED [facility] Comment on above: Performed By: #### P T, PTT #### [facility] [address] [place] [address] Dr. Mirza Sadler Influenza A H1 2009 Not detected Normal NOT DETECTED [facility] Comment on above: Performed By: #### P T, PTT #### [facility] [address] [place] [address] Dr. Mirza Sadler Influenza A H3 Not detected Normal NOT DETECTED [facility] Comment on above: Performed By: #### P T, PTT #### [facility] [address] [place] [address] Dr. Mirza Sadler Influenza B Not detected Normal NOT DETECTED [facility] Comment on above: Performed By: #### P T, PTT #### [facility] [address] [place] [address] Dr. Mirza Sadler Metapneumovirus Not detected Normal NOT DETECTED [facility] Comment on above: Performed By: #### P T, PTT #### [facility] [address] [place] [address] Dr. Mirza Sadler Mycoplas. Pneumoniae Not detected Normal NOT DETECTED [facility] Comment on above: Performed By: #### P T, PTT #### [facility] [address] [place] [address] Dr. Mirza Sadler Parainfluenza 1 Not detected Normal NOT DETECTED [facility] Comment on above: Performed By: #### P T, PTT #### [facility] [address] [place] [address] Dr. Mirza Sadler Parainfluenza 2 Not detected Normal NOT DETECTED [facility] Comment on above: Performed By: #### P T, PTT #### [facility] [address] [place] [address] Dr. Mirza Sadler Parainfluenza 3 Not detected Normal NOT DETECTED [facility] Comment on above: Performed By: #### P T, PTT #### [facility] [address] [place] [address] Dr. Mirza Sadler Parainfluenza 4 Not detected Normal NOT DETECTED [facility] Comment on above: Performed By: #### P T, PTT #### [facility] [address] [place] [address] Dr. Mirza Sadler Rhino/Enterovirus Not detected Normal NOT DETECTED [facility] Comment on above: Performed By: #### P T, PTT #### [facility] [address] [place] [address] Dr. Mirza Sadler RP2 Header 1 RESPIRATORY PANEL: VIRUSES Normal [facility] Comment on above: Performed By: #### P T, PTT #### [facility] [address] [place] [address] Dr. Mirza Sadler RP2 Header 2 RESPIRATORY PANEL: BACTERIA Normal [facility] Comment on above: Performed By: #### P T, PTT #### [facility] [address] [place] [address] Dr. Mirza Sadler RSV Not detected Normal NOT DETECTED [facility] Comment on above: Performed By: #### P T, PTT #### [facility] [address] [place] [address] Dr. Mirza Sadler SARS-CoV-2 (COVID-19) RNA RAMO+probe Ql (Unsp spec) Not detected Normal NOT DETECTED [facility] Comment on above: Performed By: #### P T, PTT #### [facility] [address] [place] [address] Dr. Mirza Sadler TROPONIN, HIGH SENSITIVITYon 03-11-2022 HSTROP 83568.8 pg/mL Critically high 4.0-76.1 [facility] Comment on above: Result Comment: CUT- OFF POINTS HAVE BEEN ESTABLISHED BASED ON THE FOURTH UNIVERSAL DEFINITIONS OF MYOCARDIAL INFARCTION. THE UPPER REFERENCE LIMIT (URL) OF TROPONIN, DEFINED THE 99TH PERCENTILE OF cTnI DISTRIBUTION IN A REFERENCE POPULATION, HAS BEEN CONFIRMED THE DECISION THRESHOLD FOR RI DIAGNOSIS. Performed By: #### C MP, CMADM #### [facility] [address] [place] [address] Dr. Mirza Sadler HSTROP 41.0 pg/mL Normal 4.0-76.1 [facility] Comment on above: Result Comment: CUT- OFF POINTS HAVE BEEN ESTABLISHED BASED ON THE FOURTH UNIVERSAL DEFINITIONS OF MYOCARDIAL INFARCTION. THE UPPER REFERENCE LIMIT (URL) OF TROPONIN, DEFINED THE 99TH PERCENTILE OF cTnI DISTRIBUTION IN A REFERENCE POPULATION, HAS BEEN CONFIRMED THE DECISION THRESHOLD FOR RI DIAGNOSIS. Performed By: #### P T, PTT #### [facility] [address] [place] [address] Dr. Mirza Sadler XR CHEST 1 Von [...] by: Kayden ACEVES Date: 2022-03-11 05:42 Normal [facility] NM MUGAon 03-09-2022 NM MUGA EXAMINATION: [...] SHANNON LANDIS Date: 2022-03-09 12:26 Normal [facility] CT CHEST WO CONon 03-02-2022 CT CHEST [...] by: HIGINIO FLANAGAN Date: 2022-03-02 08:52 Normal [facility] Creatinine and Glomerular fi ltration rate.predicted panel (S/P/Bld)Ordered By: Gagan Shahid on 01-17-2022 Creatinine [Mass/Vol] 1.53 mg/dL 0.64-1.27 [facility] Estimated glomerular filtrat ion rate (GFR) non- AmericanOrdered By: Gagan Shahid on 01-17-2022 GFR/1.73 sq M.predicted among non-blacks MDRD (S/P/Bld) [Vol rate/Area] 45 mL/Min [facility] Glucose Glucometer (BldC) [M ass/Vol]Ordered By: Gagan Shahid on 01-17-2022 Glucose [Mass/Vol] 178 mg/dL [facility] Comment on above: Random Glucose Refer ence Range is dependent on time and content of last meal. Glucose of more than 200 mg/dL in a nonstressed, ambulatory subject supports the diagnosis of Diabetes Mellitus. No Panel InformationOrdered By: Gagan Shahid on 01-17-2022 Estimated GFR () 55 mL/Min [facility] Comment on above: GFR estimated refere nce range: According to KDOQI guidelines, <60 ml/min/1.73m2 is sufficient to diagnose a patient with chronic kidney disease. Pharmacy Creatinine Clearance (Chem 42.00 [facility] Serum or plasma anion gap de terminationOrdered By: Gagan Shahid on 01-17-2022 Anion gap [Moles/Vol] 12.0 mmol/L 6.0-15.0 [facility] Serum or plasma calcium radha urement (mass/volume)Ordered By: Gagan Shahid on 01-17-2022 Calcium [Mass/Vol] 9.0 mg/dL 8.2-10.2 [facility] Serum or plasma chloride shanae surement (moles/volume)Ordered By: Gagan Shahid on 01-17-2022 Chloride [Moles/Vol] 107 mmol/L 95-114 [facility] Serum or plasma glucose radha urement (mass/volume)Ordered By: Gagan Shahid on 01-17-2022 Glucose [Mass/Vol] 142 mg/dL 70-100 [facility] Comment on above: ADA recommended refe rence rangeRandom Glucose Reference Range is dependent on time and content of last meal. Glucose of more than 200 mg/dL in a nonstressed, ambulatory subject supports the diagnosis of Diabetes Mellitus. Serum or plasma potassium me asurement (moles/volume)Ordered By: Gagan Shahid on 01-17-2022 Potassium [Moles/Vol] 3.5 mmol/L 3.5-5.1 [facility] Serum or plasma sodium measu rement (moles/volume)Ordered By: Gagan Shahid on 01-17-2022 Sodium [Moles/Vol] 137 mmol/L 136-146 [facility] Serum or plasma total carbon dioxide measurement (moles/volume)Ordered By: Gagan Shahid on 01-17-2022 CO2 [Moles/Vol] 21.5 mmol/L 22.0-30.0 [facility] Serum or plasma urea nitroge n measurement (mass/volume)Ordered By: Gagan Shahid on 01-17-2022 Urea nitrogen [Mass/Vol] 24 mg/dL 9-23 [facility] Activated partial thrombopla stin time (aPTT) in platelet poor plasma by coagulation aOrdered By: Gagan Shahid on 01-16-2022 aPTT Coag (PPP) [Time] 42.1 s 25.1-36.5 [facility] Basophils Auto (Bld) [#/Vol] Ordered By: Gagan Shahid on 01-16-2022 Basophils (Bld) [#/Vol] 0.0 10*3/uL 0.0-0.2 [facility] Basophils/100 WBC Auto (Bld) Ordered By: Gagan Shahid on 01-16-2022 Basophils/100 WBC (Bld) 0.5 % . [facility] Creatine kinase [Enzymatic a ctivity/volume] in Serum or PlasmaOrdered By: Gagan Shahid on 01-16-2022 CK [Catalytic activity/Vol] 92 U/L 22-269 [facility] Eosinophils Auto (Bld) [#/Vo l]Ordered By: Gagan Shahid on 01-16-2022 Eosinophils (Bld) [#/Vol] 0.2 10*3/uL 0.0-0.45 [facility] Eosinophils/100 WBC Auto (Bl d)Ordered By: Gagan Shahid on 01-16-2022 Eosinophils/100 WBC (Bld) 2.4 % . [facility] Erythrocyte distribution wid th Auto (RBC) [Ratio]Ordered By: Gagan Shahid on 01-16-2022 Erythrocyte distribution width (RBC) [Ratio] 14.6 % 12.0-14.8 [facility] Hematocrit Auto (Bld) [Volum e fraction]Ordered By: Gagan Shahid on 01-16-2022 Hematocrit (Bld) [Volume fraction] 43.4 % 38.8-50.0 [facility] Hemoglobin [Mass/volume] in BloodOrdered By: Gagan Shahid on 01-16-2022 Hemoglobin (Bld) [Mass/Vol] 14.4 g/dL 13.0-17.0 [facility] - Chemistry and C hemistry - challengeOrdered By: Gagan Shahid on 01-16-2022 Magnesium [Mass/Vol] 1.9 mg/dL 1.6-2.6 [facility] - CoagulationOrde red By: Gagan Shahid on 01-16-2022 PT Coag (PPP) [Time] 15.7 s 9.0-12.9 [facility] - Hematology and Cell countsOrdered By: Gagan Shahid on 01-16-2022 Nucleated RBC/100 WBC (Bld) [Ratio] 0.1 % 0-0.5 [facility] Leukocytes [#/volume] in Blo od by Automated countOrdered By: Gagan Shahid on 01-16-2022 WBC (Bld) [#/Vol] 8.2 10*3/uL 4.5-11.0 [facility] Lymphocytes Auto (Bld) [#/Vo l]Ordered By: Gagan Shahid on 01-16-2022 Lymphocytes (Bld) [#/Vol] 1.6 10*3/uL 1.00-4.8 [facility] Lymphocytes/100 WBC Auto (Bl d)Ordered By: Gagan Shahid on 01-16-2022 Lymphocytes/100 WBC (Bld) 19.5 % . [facility] MCH Auto (RBC) [Entitic mass ]Ordered By: Gagan Shahid on 01-16-2022 MCH (RBC) [Entitic mass] 29.4 pg 27.5-35.2 [facility] MCHC Auto (RBC) [Mass/Vol]Or dered By: Gagan Shahid on 01-16-2022 MCHC (RBC) [Mass/Vol] 33.2 g/dL 32.5-35.6 [facility] MCV Auto (RBC) [Entitic vol] Ordered By: Gagan Shahid on 01-16-2022 MCV (RBC) [Entitic vol] 88.5 fL 83.5-101 [facility] Monocytes Auto (Bld) [#/Vol] Ordered By: Gagan Shahid on 01-16-2022 Monocytes (Bld) [#/Vol] 0.8 10*3/uL 0.0-0.8 [facility] Monocytes/100 WBC Auto (Bld) Ordered By: Gagan Shahid on 01-16-2022 Monocytes/100 WBC (Bld) 9.1 % . [facility] Neutrophils Auto (Bld) [#/Vo l]Ordered By: Gagan Shahid on 01-16-2022 Neutrophils (Bld) [#/Vol] 5.6 10*3/uL 1.8-7.7 [facility] Neutrophils/100 WBC Auto (Bl d)Ordered By: Gagan Shahid on 01-16-2022 Neutrophils/100 WBC (Bld) 68.5 % . [facility] No Panel InformationOrdered By: Gagan Shahid on 01-16-2022 Bedside Glucose Comment Glu2: cleaned meter [facility] Platelet mean volume Auto (B ld) [Entitic vol]Ordered By: Gagan Shahid on 01-16-2022 Platelet mean volume (Bld) [Entitic vol] 8.4 fL 6.6-10.1 [facility] Platelet poor plasma interna tional normalized ratio (INR) by coagulation assay (relatOrdered By: Gagan Shahid on 01-16-2022 INR Coag (PPP) [Relative time] 1.4 {INR} [facility] Comment on above: INR Therapeutic Rang e [...] 01-16-2022 Platelets (Bld) [#/Vol] 178 10*3/uL 150-450 [facility] RBC Auto (Bld) [#/Vol]Ordere d By: Gagan Shahid on 01-16-2022 RBC (Bld) [#/Vol] 4.90 10*6/uL 3.90-5.60 [facility] Serum or plasma creatine kin ase MB (CKMB)/total creatine kinase (CK) ratio by calculaOrdered By: Gagan Shahid on 01-16-2022 CK.MB Calc [Catalytic fraction] 3.2 % 0.00-2.50 [facility] Serum or plasma creatine kin ase MB measurement (mass/volume)Ordered By: Gagan Shahid on 01-16-2022 CK.MB [Mass/Vol] 3.0 ng/mL 0.6-6.3 [facility] Troponin I.cardiac [Mass/vol ume] in Serum or Plasma by High sensitivity methodOrdered By: Gagan Shahid on 01-16-2022 Troponin I.cardiac High sensitivity method [Mass/Vol] 525 pg/mL 0-20 [facility] Comment on above: Critical valueresult calledat 1844 on 01/16/22 BNPon 01-15-2022 Natriuretic peptide B (Bld) [Mass/Vol] 1012.0 pg/mL Critically high <=900.0 [facility] Comment on above: Performed By: #### B ICE GRINDER #### [facility] [address] [place] [address] Dr. Mirza Sadler CARDIAC PARUL ADMITon 022 CK [Catalytic activity/Vol] 93 U/L Normal 39-308 [facility] Comment on above: Performed By: #### C TEGAN MARIN #### [facility] [address] [place] [address] Dr. Mirza Sadler CK.MB [Mass/Vol] 1.67 ng/mL Normal <=3.60 [facility] Comment on above: Performed By: #### C TEGAN MARIN #### [facility] [address] [place] [address] Dr. Mirza Sadler HSTROP 17.1 pg/mL Normal 4.0-76.1 [facility] Comment on above: Result Comment: CUT- OFF POINTS HAVE BEEN ESTABLISHED BASED ON THE FOURTH UNIVERSAL DEFINITIONS OF MYOCARDIAL INFARCTION. THE UPPER REFERENCE LIMIT (URL) OF TROPONIN, DEFINED THE 99TH PERCENTILE OF cTnI DISTRIBUTION IN A REFERENCE POPULATION, HAS BEEN CONFIRMED THE DECISION THRESHOLD FOR RI DIAGNOSIS. Performed By: #### C TEGAN MARIN #### [facility] [address] [place] [address] Dr. Mirza Sadler RACHEL 63 ng/mL Normal 16-96 [facility] Comment on above: Performed By: #### C TEGAN MARIN #### [facility] [address] [place] [address] Dr. Mirza Sadler CBC AUTO DIFFon 01-15-2022 BASO # 0.1 103/ul Normal 0.0-0.1 [facility] Comment on above: Performed By: #### E RUR #### [facility] [address] [place] [address] Dr. Mirza Sadler Basophils/100 WBC (Bld) 0.9 % Normal 0.2-2.0 [facility] Comment on above: Performed By: #### E RUR #### [facility] [address] [place] [address] Dr. Mirza Sadler EO # 0.3 103/ul Normal 0.0-0.7 [facility] Comment on above: Performed By: #### E RUR #### [facility] [address] [place] [address] Dr. Mirza Sadler Eosinophils/100 WBC (Bld) 3.1 % Normal 0.9-7.0 [facility] Comment on above: Performed By: #### E RUR #### [facility] [address] [place] [address] Dr. Mirza Sadler Erythrocyte distribution width (RBC) [Ratio] 14.2 % Normal 11.0-15.0 [facility] Comment on above: Performed By: #### E RUR #### [facility] [address] [place] [address] Dr. Mirza Sadler Hematocrit (Bld) [Volume fraction] 44.4 % Normal 42.0-54.0 [facility] [facility] Comment on above: Performed By: #### E RUR #### [facility] [address] [place] [address] Dr. Mirza Sadler Hemoglobin (Bld) [Mass/Vol] 14.4 g/dL Normal 14.0-18.0 [facility] Comment on above: Performed By: #### E RUR #### [facility] [address] [place] [address] Dr. Mirza Sadler IG # 0.03 10e3/ul Normal 0.00-0.03 [facility] Comment on above: Performed By: #### E RUR #### [facility] [address] [place] [address] Dr. Mirza Sadler IG % 0.3 % Normal 0.0-0.5 [facility] Comment on above: Performed By: #### E RUR #### [facility] [address] [address] [address] Mirza Sadler LYMPH # 1.6 103/ul Normal 1.2-3.8 [facility] Comment on above: Performed By: #### E RUR #### [facility] [address] [place] [address] Dr. Mirza Sadler Lymphocytes/100 WBC (Bld) 16.8 % Critically low 20.5-60.0 [facility] Comment on above: Performed By: #### E RUR #### [facility] [address] [place] [address] Dr. Mirza Sadler MANUAL DIFF REQ NO Normal [facility] Comment on above: Performed By: #### E RUR #### [facility] [address] [place] [address] Dr. Mirza Sadler MCH (RBC) [Entitic mass] 29.4 pg Normal 25.9-34.0 [facility] Comment on above: Performed By: #### E RUR #### [facility] [address] [place] [address] Dr. Mirza Sadler MCHC (RBC) [Mass/Vol] 32.4 g/dL Normal 29.9-35.2 [facility] Comment on above: Performed By: #### E RUR #### [facility] [address] [place] [address] Dr. Mirza Sadler MCV (RBC) [Entitic vol] 90.6 fL Normal 80.0-94.0 [facility] Comment on above: Performed By: #### E RUR #### [facility] [address] [place] [address] Dr. Mirza Sadler MONO # 0.5 103/ul Normal 0.3-0.8 [facility] Comment on above: Performed By: #### E RUR #### [facility] [address] [place] [address] Dr. Mirza Sadler Monocytes/100 WBC (Bld) 5.9 % Normal 1.7-12.0 [facility] Comment on above: Performed By: #### E RUR #### [facility] [address] [place] [address] Dr. Mirza Sadler NEUT # 6.7 103/ul Critically high 1.4-6.[address] [facility] Comment on above: Performed By: #### E RUR #### [facility] [address] [place] [address] Dr. Mirza Sadler Neutrophils/100 WBC (Bld) 73.0 % Normal 43.0-75.0 [facility] Comment on above: Performed By: #### E RUR #### [facility] [address] [place] [address] Dr. Mirza Sadler Platelet mean volume (Bld) [Entitic vol] 10.0 fL Normal 9.5-13.5 [facility] Comment on above: Performed By: #### E RUR #### [facility] [address] [place] [address] Dr. Mirza Sadler PLT 190 103/ul Normal 150-450 [facility] Comment on above: Performed By: #### E RUR #### [facility] [address] [place] [address] Dr. Mirza Sadler RBC 4.90 106/ul Normal 4.70-6.10 [facility] Comment on above: Performed By: #### E RUR #### [facility] [address] [place], [place] [id number] Dr. Mirza Sadler WBC 9.2 103/ul Normal 4.0-11.0 [facility] Comment on above: Performed By: #### E RUR #### [facility] [address] [place], [place] [id number] Dr. Mirza Sadler CT CHEST WO CONon [...] HIGINIO FLANAGAN Date: 2022-01-15 08:19 Normal [facility] CULTURE BLOODon 01-15-2022 Microscopic examination of blood, culture Culture Observations: NO GROWTH AT 5 DAYS. Normal [facility] Comment on above: Performed By: #### H STROPN #### [facility] [address] [address] [address] Mirza Sadler Microscopic examination of blood, culture Culture Observations: NO GROWTH AT 5 DAYS. Normal [facility] Comment on above: Performed By: #### B LDCX1 #### [facility] [address] [address] [address] Mirza Sadler [facility] SARS-CoV-2 (COVID-19) RNA RAMO+probe Ql (Unsp spec) Not detected Normal NOT DETECTED [facility] Comment on above: Result Comment: When diagnostic [...] for this test is supported by the [employer] and Human Service's declaration that [...] longer be used). Performed By: #### B ICE GRINDER #### [facility] [address] [place] [address] Dr. Mirza Sadler ER URINE PROFILEon 2 Bilirubin Ql (U) Negative Normal NEGATIVE [facility] Comment on above: Performed By: #### C DOM MARINDM #### [facility] [address] [place] [address] Dr. Mirza Sadler Clarity (U) CLEAR Normal CLEAR [facility] Comment on above: Performed By: #### C DOM MARINDM #### [facility] [address] [place] [address] Dr. Mirza Sadler Color (U) LT. YELLOW Normal YELLOW [facility] Comment on above: Performed By: #### C DOM MARINDM #### [facility] [address] [place] [address] Dr. Mirza Sadler ERUAHD A micrscopic examina tion will be performed if indicated. Normal [facility] Comment on above: Performed By: #### C TANIA, CMADM #### [facility] [address] [place] [address] Dr. Mirza Sadler Glucose Ql (U) >1000 Abnormal NEGATIVE [facility] Comment on above: Performed By: #### C TANIA, CMADM #### [facility] [address] [place] [address] Dr. Mirza Sadler Hemoglobin Ql (U) Negative Normal NEGATIVE [facility] Comment on above: Performed By: #### C TANIA, CMADM #### [facility] [address] [address] [address] Mirza Sadler Ketones Ql (U) TRACE Abnormal NEGATIVE [facility] Comment on above: Performed By: #### C MP, CMADM #### [facility] [address] [place] [address] Dr. Mirza Sadler LEUKOCYTES Negative Normal NEGATIVE [facility] Comment on above: Performed By: #### C TANIA, CMADM #### [facility] [address] [place] [address] Dr. Mirza Sadler Nitrite Ql (U) Negative Normal NEGATIVE [facility] Comment on above: Performed By: #### C TANIA, CMADM #### [facility] [address] [place] [address] Dr. Mirza Sadler pH (U) 5.5 [pH] Normal 5-9 [facility] Comment on above: Performed By: #### C TANIA, CMADM #### [facility] [address] [place] [address] Dr. Mirza Sadler SPEC GRAVITY 1.020 Normal 1.005-<=1. 025 [facility] Comment on above: Performed By: #### C TANIA, DOMDM #### [facility] [address] [place] [address] Dr. Mirza Sadler UA PROTEIN TRACE Normal NEGATIVE/ TRACE [facility] Comment on above: Performed By: #### C TANIA, CMADM #### [facility] [address] [place] [address] Dr. Mirza Sadler UR MICRO IND NOT INDICATED Normal [facility] Comment on above: Performed By: #### C TANIA, CMADM #### [facility] [address] [place] [address] Dr. Mirza Sadler Urobilinogen Qn (U) 0.2 {Luisito'U}/dL Normal 0.2 - 1. 0 [facility] Comment on above: Performed By: #### C TANIA, CMADM #### [facility] [address] [place] [address] Dr. Mirza Sadler LACTATE/LACTIC ACIDon 2021 Lactate [Moles/Vol] 0.8 mmol/L Normal 0.4-1.9 [facility] Comment on above: Performed By: #### P T, PTT #### [facility] [address] [address] [address] Mirza Sadler PROF 14(COMP METB)on 022 Albumin [Mass/Vol] 4.4 g/dL Normal 3.4-5.0 [facility] Comment on above: Performed By: #### C MP, CMADM #### [facility] [address] [address] [address] Mirza Sadler Albumin/Globulin [Mass ratio] 1.3 {ratio} Normal [facility] Comment on above: Performed By: #### C MP, CMADM #### [facility] [address] [address] [address] Mirza Sadler ALP [Catalytic activity/Vol] 155 U/L Critically high 46-116 [facility] Comment on above: Performed By: #### C MP, CMADM #### [facility] [address] [address] [address] Mirza Sadler ALT [Catalytic activity/Vol] 27 U/L Normal 16-63 [facility] Comment on above: Performed By: #### C MP, CMADM #### [facility] [address] [address] [address] Mirza Sadler Anion gap [Moles/Vol] 14.9 mmol/L Normal [facility] Comment on above: Performed By: #### C MP, CMADM #### [facility] [address] [address] [address] Mirza Sadler AST [Catalytic activity/Vol] 22 U/L Normal 15-37 [facility] Comment on above: Performed By: #### C MP, CMADM #### [facility] [address] [address] [address] Mirza Sadler Bilirubin [Mass/Vol] 0.8 mg/dL Normal 0.2-1.0 [facility] Comment on above: Performed By: #### C MP, CMADM #### [facility] [address] [address] [address] Mirza Sadler Calcium [Mass/Vol] 8.8 mg/dL Normal 8.5-10.1 [facility] Comment on above: Performed By: #### C MP, CMADM #### [facility] [address] [address] [address] Mirza Sadler Chloride [Moles/Vol] 106 mmol/L Normal 98-107 [facility] Comment on above: Performed By: #### C MP, CMADM #### [facility] [address] [address] [address] Mirza Sadler CO2 [Moles/Vol] 23.9 mmol/L Normal 21.0-32.0 [facility] Comment on above: Performed By: #### C MP, CMADM #### [facility] [address] [address] [address] Mirza Sadler Creatinine [Mass/Vol] 1.51 mg/dL Critically high 0.70-1.30 [facility] Comment on above: Performed By: #### C MP, CMADM #### [facility] [address] [address] [address] Mirza Sadler EGFR-AF ETHIOPIAN 56 mL/min/1.73m2 Critically low >=60 [facility] Comment on above: Performed By: #### C MP, CMADM #### [facility] [address] [address] [address] Mirza Sadler EGFR-NON AF ETHIOPIAN 46 mL/min/1.73m2 Critically low >=60 [facility] Comment on above: Performed By: #### C MP, CMADM #### [facility] [address] [address] [address] Mirza Sadler Globulin (S) [Mass/Vol] 3.4 g/dL Normal [facility] Comment on above: Performed By: #### C MP, CMADM #### [facility] [address] [address] [address] Mirza Sadler Glucose [Mass/Vol] 189 mg/dL Critically high 74-106 [facility] Comment on above: Performed By: #### C TANIA, CMADM #### [facility] [address] [address] [address] Mirza Sadler Potassium [Moles/Vol] 3.8 mmol/L Normal 3.5-5.1 [facility] Comment on above: Performed By: #### C TANIA, CMADM #### [facility] [address] [place] [address] Dr. Mirza Sadler Protein [Mass/Vol] 7.8 g/dL Normal 6.4-8.2 [facility] Comment on above: Performed By: #### C TANIA, DOMDM #### [facility] [address] [place] [address] Dr. Mirza Sadler Sodium [Moles/Vol] 141 mmol/L Normal 136-145 [facility] Comment on above: Performed By: #### C TANIA, DOMDM #### [facility] [address] [place] [address] Dr. Mirza Sadler Urea nitrogen [Mass/Vol] 22.0 mg/dL Critically high 7.0-18.0 [facility] Comment on above: Performed By: #### C DOM MARINDM #### [facility] [address] [place] [address] Dr. Mirza Sadler Urea nitrogen/Creatinine [Mass ratio] 14.6 mg/mg Normal [facility] Comment on above: Performed By: #### C TANIA CMADM #### [facility] [address] [place] [address] Dr. Mirza Sadler PROTIMEon 01-15-2022 INR Coag (PPP) [Relative time] 1.10 {INR} Normal [facility] Comment on above: Performed By: #### E RUR #### [facility] [address] [place] [address] Dr. Mirza Sadler INR GUIDELINES SEE BELOW [facility] Comment on above: Result Comment: RIVKA RED INR: 2.0 - 3.0 CONDITIONS NOT LISTED BELOW 2.5 - 3.5 FOR PROSTHETIC HEART VALVE REPLACEMENT 2.5 - 3.5 RECURRENT THROMBOSIS Performed By: #### E RUR #### [facility] [address] [address] [address] Mirza Sadler PT Coag (PPP) [Time] 11.8 s Critically high 9.0-11.6 [facility] Comment on above: Performed By: #### E RUR #### [facility] [address] [address] [address] Mirza Sadler PTTon 01-15-2022 aPTT Coag (Bld) [Time] 29.0 s Normal 22.3-36.2 [facility] Comment on above: Performed By: #### E RUR #### [facility] [address] [address] [address] Mirza Sadler TROPONIN, HIGH SENSITIVITYon 01-15-2022 HSTROP 1786.2 pg/mL Critically high 4.0-76.1 [facility] Comment on above: Result Comment: CUT- OFF POINTS HAVE BEEN ESTABLISHED BASED ON THE FOURTH UNIVERSAL DEFINITIONS OF MYOCARDIAL INFARCTION. THE UPPER REFERENCE LIMIT (URL) OF TROPONIN, DEFINED THE 99TH PERCENTILE OF cTnI DISTRIBUTION IN A REFERENCE POPULATION, HAS BEEN CONFIRMED THE DECISION THRESHOLD FOR RI DIAGNOSIS. Performed By: #### H STROPN #### [facility] [address] [place] [address] Dr. Mirza Sadler HSTROP 669.3 pg/mL Critically high 4.0-76.1 [facility] Comment on above: Result Comment: CUT- OFF POINTS HAVE BEEN ESTABLISHED BASED ON THE FOURTH UNIVERSAL DEFINITIONS OF MYOCARDIAL INFARCTION. THE UPPER REFERENCE LIMIT (URL) OF TROPONIN, DEFINED THE 99TH PERCENTILE OF cTnI DISTRIBUTION IN A REFERENCE POPULATION, HAS BEEN CONFIRMED THE DECISION THRESHOLD FOR RI DIAGNOSIS. Performed By: #### H STROPN #### [facility] [address] [address] [address] Mirza Sadler XR CHEST 1 Von [...] WAYNE CASEY Date: 2022-01-15 06:42 Normal [facility] A1C HEMOGLOBINon 12-18-2021 HbA1c (Bld) [Mass fraction] 6.2 % [employer] Other Glucose - FINGER STICKon Glucose [Mass/Vol] 120 mg/dL [employer] Other HbA1c (Bld) [Mass fraction]o n 12-18-2021 A1C HEMOGLOBIN [employer] Other XR CHEST 2 Von 12-08-2021 XR [...] HIGINIO FLANAGAN Date: 2021-12-08 16:07 Normal [facility] PTH INTACTon 12-01-2021 PTH, Intact 15 pg/mL Normal 15-65 [facility] Comment on above: Performed By: #### C TANIA, [facility] #### [facility] [address] [place] [address] Dr. Mirza Sadler VIT D 25-OH [facility]ABCORPon 2021 Vitamin D, 25-Hydroxy 41.2 ng/mL Normal 30.0-100.0 [facility] Comment on above: Result Comment: Cielo min D deficiency has been defined by the [place] [employer] and an Endocrine Society practice guideline as a level of serum 25-OH vitamin D less than 20 ng/mL (1,2). The Endocrine Society went on to further define vitamin D insufficiency as a level between 21 and 29 ng/mL (2). 1. IOM ([place] [employer]). 2010. Dietary reference intakes for calcium and D. [place]: The National Academies Press. 2. Noemy MF, Sonam [place], Jake HERMOSILLO, et al. Evaluation, treatment, and prevention of vitamin D deficiency: an Endocrine Society clinical practice guideline. JCEM. 2010; 96(7):1911-30. Performed By: #### P T, PTT #### [facility] [address] [place] [address] Dr. Mirza Sadler HEMOGRAM AND PLATELon 2021 Hematocrit (Bld) [Volume fraction] 39.9 % Critically low 42.0-54.0 [facility] Comment on above: Performed By: #### P T, PTT #### [facility] [address] [place] [address] Dr. Mirza Sadler Hemoglobin (Bld) [Mass/Vol] 13.1 g/dL Critically low 14.0-18.0 [facility] Comment on above: Performed By: #### P T, PTT #### [facility] [address] [place] [address] Dr. Mirza Sadler MCH (RBC) [Entitic mass] 29.5 pg Normal 25.9-34.0 [facility] Comment on above: Performed By: #### P T, PTT #### [facility] [address] [place] [address] Dr. Mirza Sadler MCHC (RBC) [Mass/Vol] 32.8 g/dL Normal 29.9-35.2 [facility] Comment on above: Performed By: #### P T, PTT #### [facility] [address] [place] [address] Dr. Mirza Sadler MCV (RBC) [Entitic vol] 89.9 fL Normal 80.0-94.0 [facility] Comment on above: Performed By: #### P T, PTT #### [facility] [address] [address] [address] Mirza Sadler PLT 182 103/ul Normal 150-450 [facility] Comment on above: Performed By: #### P T, PTT #### [facility] [address] [place] [address] Dr. Mirza Sadler RBC 4.44 106/ul Critically low 4.70-6.[address] [facility] Comment on above: Performed By: #### P T, PTT #### [facility] [address] [place] [address] Dr. Mirza Sadler WBC 6.9 103/ul Normal 4.0-11.0 [facility] Comment on above: Performed By: #### P T, PTT #### [facility] [address] [place] [address] Dr. Mirza Sadler MAGNESIUMon 11-30-2021 Magnesium [Mass/Vol] 1.8 mg/dL Normal 1.8-2.4 [facility] Comment on above: Performed By: #### P T, PTT #### [facility] [address] [place] [address] Dr. Mirza Sadler RENAL FUNCTION PANELon 11-30 Albumin [Mass/Vol] 3.9 g/dL Normal 3.4-5.0 [facility] Comment on above: Performed By: #### P T, PTT #### [facility] [address] [place] [address] Dr. Mirza Sadler Calcium [Mass/Vol] 9.0 mg/dL Normal 8.5-10.1 [facility] Comment on above: Performed By: #### P T, PTT #### [facility] [address] [place] [address] Dr. Mirza Sadler Chloride [Moles/Vol] 107 mmol/L Normal 98-107 [facility] Comment on above: Performed By: #### P T, PTT #### [facility] [address] [place] [address] Dr. Mirza Sadler CO2 [Moles/Vol] 26.2 mmol/L Normal 21.0-32.[address] [facility] Comment on above: Performed By: #### P T, PTT #### [facility] [address] [address] [address] Mirza Sadler Creatinine [Mass/Vol] 1.55 mg/dL Critically high 0.70-1.30 [facility] Comment on above: Performed By: #### P T, PTT #### [facility] [address] [address] [address] Mirza Sadler EGFR-AF ETHIOPIAN 54 mL/min/1.73m2 Critically low >=60 [facility] Comment on above: Performed By: #### P T, PTT #### [facility] [address] [address] [address] Mirza Sadler EGFR-NON AF ETHIOPIAN 45 mL/min/1.73m2 Critically low >=60 [facility] Comment on above: Performed By: #### P T, PTT #### [facility] [address] [address] [address] Mirza Sadler Glucose [Mass/Vol] 166 mg/dL Critically high 74-106 [facility] Comment on above: Performed By: #### P T, PTT #### [facility] [address] [address] [address] Mirza Sadler Phosphate [Mass/Vol] 3.7 mg/dL Normal 2.6-4.7 [facility] Comment on above: Performed By: #### P T, PTT #### [facility] [address] [address] [address] Mirza Sadler Potassium [Moles/Vol] 4.2 mmol/L Normal 3.5-5.1 [facility] Comment on above: Performed By: #### P T, PTT #### [facility] [address] [address] [address] Mirza Sadler Sodium [Moles/Vol] 142 mmol/L Normal 136-145 [facility] Comment on above: Performed By: #### P T, PTT #### [facility] [address] [address] [address] Mirza Sadler Urea nitrogen [Mass/Vol] 16.0 mg/dL Normal 7.0-18.0 [facility] Comment on above: Performed By: #### P T, PTT #### [facility] [address] [place] [address] Dr. Mirza Sadler UA RANDOM W/MICROSCOPICon BACTERIA NONE SEEN Normal NONE SEEN [facility] Comment on above: Performed By: #### B LDCX2 #### [facility] [address] [place] [address] Dr. Mirza Sadler Bilirubin Ql (U) Negative Normal NEGATIVE [facility] Comment on above: Performed By: #### B LDCX2 #### [facility] [address] [place] [address] Dr. Mirza Sadler CAST NONE SEEN Normal NONE SEEN [facility] Comment on above: Performed By: #### B LDCX2 #### [facility] [address] [place] [address] Dr. Mirza Sadler Clarity (U) CLEAR Normal CLEAR [facility] Comment on above: Performed By: #### B LDCX2 #### [facility] [address] [place] [address] Dr. Mirza Sadler Color (U) LT. YELLOW Normal YELLOW [facility] Comment on above: Performed By: #### B LDCX2 #### [facility] [address] [place] [address] Dr. Mirza Sadler Crystals LM Nom (Urine sed) NONE SEEN Normal NONE SEEN [facility] Comment on above: Performed By: #### B LDCX2 #### [facility] [address] [place] [address] Dr. Mizra Sadler Epithelial cells LM Ql (Urine sed) RARE Normal NONE SEEN /RARE [facility] Comment on above: Performed By: #### B LDCX2 #### [facility] [address] [place] [address] Dr. Mirza Sadler Glucose Ql (U) >1000 Abnormal NEGATIVE [facility] Comment on above: Performed By: #### B LDCX2 #### [facility] [address] [place] [address] Dr. Mirza Sadler Hemoglobin Ql (U) Negative Normal NEGATIVE [facility] Comment on above: Performed By: #### B LDCX2 #### [facility] [address] [place] [address] Dr. Mirza Sadler Ketones Ql (U) Negative Normal [facility] Comment on above: Performed By: #### B LDCX2 #### [facility] [address] [place] [address] Dr. Mirza Sadler LEUKOCYTES Negative Normal NEGATIVE [facility] Comment on above: Performed By: #### B LDCX2 #### [facility] [address] [place] [address] Dr. Mirza Sadler MUCOUS NONE SEEN Normal NONE SEEN [facility] Comment on above: Performed By: #### B LDCX2 #### [facility] [address] [place] [address] Dr. Mirza Sadler Nitrite Ql (U) Negative Normal NEGATIVE [facility] Comment on above: Performed By: #### B LDCX2 #### [facility] [address] [place] [address] Dr. Mirza Sadler pH (U) 5.5 [pH] Normal 5-9 [facility] Comment on above: Performed By: #### B LDCX2 #### [facility] [address] [place] [address] Dr. Mirza Sadler RBC NONE SEEN Abnormal 0-2 [facility] Comment on above: Performed By: #### B LDCX2 #### [facility] [address] [place] [address] Dr. Mirza Sadler SPEC GRAVITY 1.015 Normal 1.005-<=1. 025 [facility] Comment on above: Performed By: #### B LDCX2 #### [facility] [address] [place] [address] Dr. Mirza Sadler UA PROTEIN Negative Normal NEGATIVE/ TRACE [facility] Comment on above: Performed By: #### B LDCX2 #### [facility] [address] [place] [address] Dr. Mirza Sadler Urobilinogen Qn (U) 0.2 {Luisito'U}/dL Normal 0.2 - 1. 0 [facility] Comment on above: Performed By: #### B LDCX2 #### [facility] [address] [place] [address] Dr. Mirza Sadler WBC NONE SEEN Normal NONE SEEN [facility] Comment on above: Performed By: #### B LDCX2 #### [facility] [address] [address] [address] Mirza Sadler URINE T PROTEIN CREAT RATIOo n 11-30-2021 Protein (U) [Mass/Vol] 22.4 mg/dL Critically high <=12.0 [facility] Comment on above: Performed By: #### U RTPCR #### [facility] [address] [place] [address] Dr. Mirza Sadler UR PROT CREAT RAT 0.31 Normal [facility] Comment on above: Performed By: #### U RTPCR #### [facility] [address] [place] [address] Dr. Mirza Sadler URINE CREAT 73.05 mg/dL Normal 20.00-300. 00 [facility] Comment on above: Performed By: #### U RTPCR #### [facility] [address] [place] [address] Dr. Mirza Sadler NM HEPATOBILIARY SCAN W [...] HIGINIO FLANAGAN Date: 2021-11-24 11:55 Normal [facility] BNPon 10-27-2021 Natriuretic peptide B (Bld) [Mass/Vol] 574.0 pg/mL Normal <=900.0 [facility] Comment on above: Performed By: #### P T, PTT #### [facility] [address] [place] [address] Dr. Mirza Sadler CARDIAC PARUL ADMITon 022 CK [Catalytic activity/Vol] 70 U/L Normal 39-308 [facility] Comment on above: Performed By: #### P T, PTT #### [facility] [address] [place] [address] Dr. Mirza Sadler CK.MB [Mass/Vol] 1.10 ng/mL Normal <=3.[address] [facility] Comment on above: Performed By: #### P T, PTT #### [facility] [address] [place] [address] Dr. Mirza Sadler HSTROP 22.3 pg/mL Normal 4.0-76.1 [facility] Comment on above: Result Comment: CUT- OFF POINTS HAVE BEEN ESTABLISHED BASED ON THE FOURTH UNIVERSAL DEFINITIONS OF MYOCARDIAL INFARCTION. THE UPPER REFERENCE LIMIT (URL) OF TROPONIN, DEFINED THE 99TH PERCENTILE OF cTnI DISTRIBUTION IN A REFERENCE POPULATION, HAS BEEN CONFIRMED THE DECISION THRESHOLD FOR RI DIAGNOSIS. Performed By: #### P T, PTT #### [facility] [address] [place] [address] Dr. Mirza Sadler RACHEL 81 ng/mL Normal 16-96 [facility] Comment on above: Performed By: #### P T, PTT #### [facility] [address] [place] [address] Dr. Mirza Sadler CBC AUTO DIFFon 10-27-2021 BASO # 0.1 103/ul Normal 0.0-0.1 [facility] Comment on above: Performed By: #### E RUR #### [facility] [address] [place] [address] Dr. Mirza Sadler Basophils/100 WBC (Bld) 0.4 % Normal 0.2-2.0 [facility] Comment on above: Performed By: #### E RUR #### [facility] [address] [place] [address] Dr. Mirza Sadler EO # 0.1 103/ul Normal 0.0-0.7 [facility] Comment on above: Performed By: #### E RUR #### [facility] [address] [place] [address] Dr. Mirza Sadler Eosinophils/100 WBC (Bld) 0.4 % Critically low 0.9-7.0 [facility] Comment on above: Performed By: #### E RUR #### [facility] [address] [place] [address] Dr. Mirza Sadler Erythrocyte distribution width (RBC) [Ratio] 14.1 % Normal 11.0-15.0 [facility] Comment on above: Performed By: #### E RUR #### [facility] [address] [place] [address] Dr. Mirza Sadler Hematocrit (Bld) [Volume fraction] 41.0 % Critically low 42.0-54.0 [facility] Comment on above: Performed By: #### E RUR #### [facility] [address] [place] [address] Dr. Mirza Sadler Hemoglobin (Bld) [Mass/Vol] 14.1 g/dL Normal 14.0-18.0 [facility] Comment on above: Performed By: #### E RUR #### [facility] [address] [place] [address] Dr. Mirza Sadler IG # 0.05 10e3/ul Critically high 0.00-0.03 [facility] Comment on above: Performed By: #### E RUR #### [facility] [address] [place] [address] Dr. Mirza Sadler IG % 0.4 % Normal 0.0-0.5 [facility] Comment on above: Performed By: #### E RUR #### [facility] [address] [place] [address] Dr. Mirza Sadler LYMPH # 0.9 103/ul Critically low 1.2-3.8 [facility] Comment on above: Performed By: #### E RUR #### [facility] [address] [place] [address] Dr. Mirza Sadler Lymphocytes/100 WBC (Bld) 6.6 % Critically low 20.5-60.0 [facility] Comment on above: Performed By: #### E RUR #### [facility] [address] [place] [address] Dr. Mirza Sadler MANUAL DIFF REQ NO Normal [facility] Comment on above: Performed By: #### E RUR #### [facility] [address] [place] [address] Dr. Mirza Sadler MCH (RBC) [Entitic mass] 29.7 pg Normal 25.9-34.0 [facility] Comment on above: Performed By: #### E RUR #### [facility] [address] [place] [address] Dr. Mirza Sadler MCHC (RBC) [Mass/Vol] 34.4 g/dL Normal 29.9-35.2 [facility] Comment on above: Performed By: #### E RUR #### [facility] [address] [place] [address] Dr. Mirza Sadler MCV (RBC) [Entitic vol] 86.3 fL Normal 80.0-94.0 [facility] Comment on above: Performed By: #### E RUR #### [facility] [address] [place] [address] Dr. Mirza Sadler MONO # 0.4 103/ul Normal 0.3-0.8 [facility] Comment on above: Performed By: #### E RUR #### [facility] [address] [place] [address] Dr. Mirza Sadler Monocytes/100 WBC (Bld) 2.6 % Normal 1.7-12.0 [facility] Comment on above: Performed By: #### E RUR #### [facility] [address] [place] [address] Dr. Mirza Sadler NEUT # 12.2 103/ul Critically high 1.4-6.5 [facility] Comment on above: Performed By: #### E RUR #### [facility] [address] [place] [address] Dr. Mirza Sadler Neutrophils/100 WBC (Bld) 89.6 % Critically high 43.0-75.0 [facility] Comment on above: Performed By: #### E RUR #### [facility] [address] [place] [address] Dr. Mirza Sadler Platelet mean volume (Bld) [Entitic vol] 9.7 fL Normal 9.5-13.5 [facility] Comment on above: Performed By: #### E RUR #### [facility] [address] [place] [address] Dr. Mirza Sadler PLT 183 103/ul Normal 150-450 [facility] Comment on above: Performed By: #### E RUR #### [facility] [address] [place] [address] Dr. Mirza Sadler RBC 4.75 106/ul Normal 4.70-6.10 [facility] Comment on above: Performed By: #### E RUR #### [facility] [address] [place] [address] Dr. Mirza Sadler WBC 13.7 103/ul Critically high 4.0-11.0 [facility] Comment on above: Performed By: #### E RUR #### [facility] [address] [place] [address] Dr. Mirza Sadler CULTURE BLOODon 10-27-2021 Microscopic examination of blood, culture Culture Observations: NO GROWTH AT 5 DAYS. Normal [facility] Comment on above: Performed By: #### B [id number] #### [facility] [address] [place] [address] Dr. Mirza Sadler Performed By: #### H STROPN #### [facility] [address] [place] [address] Dr. Mirza Sadler [facility] SARS-CoV-2 (COVID-19) RNA RAMO+probe Ql (Unsp spec) Not detected Normal NOT DETECTED [facility] Comment on above: Result Comment: When diagnostic [...] for this test is supported by the [employer] of [employer] and Human Service's declaration that [...] Performed By: #### P T, PTT #### [facility] [address] [place] [address] Dr. Mirza Sadler ER URINE PROFILEon 2 Bilirubin Ql (U) Negative Normal NEGATIVE [facility] Comment on above: Performed By: #### H STROPN #### [facility] [address] [place] [address] Dr. Mirza Sadler Clarity (U) CLEAR Normal CLEAR [facility] Comment on above: Performed By: #### H STROPN #### [facility] [address] [place] [address] Dr. Mirza Sadler Color (U) YELLOW Normal YELLOW [facility] Comment on above: Performed By: #### H STROPN #### [facility] [address] [place] [address] Dr. Mirza Sadler ERUAHD A micrscopic examina tion will be performed if indicated. Normal [facility] Comment on above: Performed By: #### H STROPN #### [facility] [address] [place] [address] Dr. Mirza Sadler Glucose Ql (U) >1000 Abnormal NEGATIVE [facility] Comment on above: Performed By: #### H STROPN #### [facility] [address] [address] [address] Mirza Sadler Hemoglobin Ql (U) Negative Normal NEGATIVE [facility] Comment on above: Performed By: #### H STROPN #### [facility] [address] [address] [address] Mirza Sadler Ketones Ql (U) TRACE Abnormal NEGATIVE [facility] Comment on above: Performed By: #### H STROPN #### [facility] [address] [address] [address] Mirza Sadler LEUKOCYTES Negative Normal NEGATIVE [facility] Comment on above: Performed By: #### H STROPN #### [facility] [address] [address] [address] Mirza Sadler Nitrite Ql (U) Negative Normal NEGATIVE [facility] Comment on above: Performed By: #### H STROPN #### [facility] [address] [address] [address] Mirza Sadler pH (U) 5.5 [pH] Normal 5-9 [facility] Comment on above: Performed By: #### H STROPN #### [facility] [address] [address] [address] Mirza Sadler SPEC GRAVITY 1.010 Normal 1.005-<=1. 025 [facility] Comment on above: Performed By: #### H STROPN #### [facility] [address] [address] [address] Mirza Sadler UA PROTEIN Negative Normal NEGATIVE/ TRACE [facility] Comment on above: Performed By: #### H STROPN #### [facility] [address] [address] [address] Mirza Sadler UR MICRO IND NOT INDICATED Normal [facility] Comment on above: Performed By: #### H STROPN #### [facility] [address] [address] [address] Mirza Sadler Urobilinogen Qn (U) 0.2 {Liusito'U}/dL Normal 0.2 - 1. 0 [facility] Comment on above: Performed By: #### H STROPN #### [facility] [address] [place] [address] Dr. Mirza Sadler INFLUENZA A AND B AGon 10-27 INFLUANEGH SEE BELOW Normal [facility] Comment on above: Result Comment: Nega tive for Flu A protein angiten. Infection due to Flu A cannot be ruled out. Flu A angiten in the sample may be below the detection limit of the test. Performed By: #### B ICE GRINDER #### [facility] [address] [place] [address] Dr. Mirza Sadler INFLUBNEGH SEE BELOW Normal [facility] Comment on above: Result Comment: Nega tive for Flu B protein antigen. Infection due to Flu B cannot be ruled out. Flu B antigen in the sample may be below the detection limit of the test. Performed By: #### B ICE GRINDER #### [facility] [address] [place] [address] Dr. Mirza Sadler INFLUENZA A AG Negative Normal NEGATIVE SEE COMMENT [facility] Comment on above: Performed By: #### B ICE GRINDER #### [facility] [address] [place] [address] Dr. Mirza Sadler INFLUENZA B AG Negative Normal NEGATIVE SEE COMMENT [facility] Comment on above: Performed By: #### B ICE GRINDER #### [facility] [address] [place] [address] Dr. Mirza Sadler INTERNAL CONTROLS Within Normal Limits Normal Wi thin Normal Limits [facility] Comment on above: Performed By: #### B ICE GRINDER #### [facility] [address] [place] [address] Dr. Mirza Sadler LACTATE/LACTIC ACIDon 2021 Lactate [Moles/Vol] 1.8 mmol/L Normal 0.4-1.9 [facility] Comment on above: Performed By: #### C MP, CMADM #### [facility] [address] [place] [address] Dr. Mirza Sadler LIPASEon 10-27-2021 Lipase [Catalytic activity/Vol] 87.0 U/L Normal 73.0-393.0 [facility] Comment on above: Performed By: #### P T, PTT #### [facility] [address] [address] [address] Mirza Sadler PH VENOUS BLOODon 10-27-2021 PCO2 VENOUS 37.6 mmHg Critically low 40.0-52.0 [facility] Comment on above: Performed By: #### P T, PTT #### [facility] [address] [address] [address] Mirza Sadler pH VENOUS 7.422 Normal 7.330-7.43 0 [facility] Comment on above: Performed By: #### P T, PTT #### [facility] [address] [place] [address] Dr. Mirza Sadler PROF 14(COMP METB)on 022 Albumin [Mass/Vol] 4.2 g/dL Normal 3.4-5.0 [facility] Comment on above: Performed By: #### P T, PTT #### [facility] [address] [place] [address] Dr. Mirza Sadler Albumin/Globulin [Mass ratio] 1.3 {ratio} Normal [facility] Comment on above: Performed By: #### P T, PTT #### [facility] [address] [place] [address] Dr. Mirza Sadler ALP [Catalytic activity/Vol] 121 U/L Critically high 46-116 [facility] Comment on above: Performed By: #### P T, PTT #### [facility] [address] [place] [address] Dr. Mirza Sadler ALT [Catalytic activity/Vol] 22 U/L Normal 16-63 [facility] Comment on above: Performed By: #### P T, PTT #### [facility] [address] [place] [address] Dr. Mirza Sadler Anion gap [Moles/Vol] 16.0 mmol/L Normal [facility] Comment on above: Performed By: #### P T, PTT #### [facility] [address] [place] [address] Dr. Mirza Sadler AST [Catalytic activity/Vol] 18 U/L Normal 15-37 [facility] Comment on above: Performed By: #### P T, PTT #### [facility] [address] [address] [address] Mirza Sadler Bilirubin [Mass/Vol] 1.3 mg/dL Critically high 0.2-1.0 [facility] Comment on above: Performed By: #### P T, PTT #### [facility] [address] [address] [address] Mirza Sadler Calcium [Mass/Vol] 8.9 mg/dL Normal 8.5-10.1 [facility] Comment on above: Performed By: #### P T, PTT #### [facility] [address] [address] [address] Mirza Sadler Chloride [Moles/Vol] 105 mmol/L Normal 98-107 [facility] Comment on above: Performed By: #### P T, PTT #### [facility] [address] [place] [address] Dr. Mirza Sadler CO2 [Moles/Vol] 23.7 mmol/L Normal 21.0-32.0 [facility] Comment on above: Performed By: #### P T, PTT #### [facility] [address] [address] [address] Mirza Sadler Creatinine [Mass/Vol] 1.79 mg/dL Critically high 0.70-1.30 [facility] Comment on above: Performed By: #### P T, PTT #### [facility] [address] [address] [address] Mirza Sadler EGFR-AF ETHIOPIAN 46 mL/min/1.73m2 Critically low >=60 [facility] Comment on above: Performed By: #### P T, PTT #### [facility] [address] [address] [address] Mirza Sadler EGFR-NON AF ETHIOPIAN 38 mL/min/1.73m2 Critically low >=60 [facility] Comment on above: Performed By: #### P T, PTT #### [facility] [address] [address] [address] Mirza Sadler Globulin (S) [Mass/Vol] 3.3 g/dL Normal [facility] Comment on above: Performed By: #### P T, PTT #### [facility] [address] [address] [address] Mirza Sadler Glucose [Mass/Vol] 195 mg/dL Critically high 74-106 [facility] Comment on above: Performed By: #### P T, PTT #### [facility] [address] [address] [address] Mirza Sadler Potassium [Moles/Vol] 3.7 mmol/L Normal 3.5-5.1 [facility] Comment on above: Performed By: #### P T, PTT #### [facility] [address] [address] [address] Mirza Sadler Protein [Mass/Vol] 7.5 g/dL Normal 6.4-8.2 [facility] Comment on above: Performed By: #### P T, PTT #### [facility] [address] [address] [address] Mirza Sadler Sodium [Moles/Vol] 141 mmol/L Normal 136-145 [facility] Comment on above: Performed By: #### P T, PTT #### [facility] [address] [address] [address] Mirza Sadler Urea nitrogen [Mass/Vol] 25.0 mg/dL Critically high 7.0-18.0 [facility] Comment on above: Performed By: #### P T, PTT #### [facility] [address] [address] [address] Mirza Sadler Urea nitrogen/Creatinine [Mass ratio] 14.0 mg/mg [facility] Comment on above: Performed By: #### P T, PTT #### [facility] [address] [address] [address] Mirza Sadler PROTIMEon 10-27-2021 INR Coag (PPP) [Relative time] 1.07 {INR} [facility] Comment on above: Performed By: #### P T, PTT #### [facility] [address] [address] [address] Mirza aSdler INR GUIDELINES SEE BELOW [facility] Comment on above: Result Comment: RIVKA RED INR: 2.0 - 3.0 CONDITIONS NOT LISTED BELOW 2.5 - 3.5 FOR PROSTHETIC HEART VALVE REPLACEMENT 2.5 - 3.5 RECURRENT THROMBOSIS Performed By: #### P T, PTT #### [facility] [address] [address] [address] Mirza Sadler PT Coag (PPP) [Time] 11.5 s Normal 9.0-11.6 [facility] Comment on above: Performed By: #### P T, PTT #### [facility] [address] [address] [address] Mirza Sadler PTTon 10-27-2021 aPTT Coag (Bld) [Time] 25.1 s Normal 22.3-36.2 [facility] Comment on above: Performed By: #### P T, PTT #### [facility] [address] [address] [address] Mirza Sadler XR CHEST 1 Von [...] by: GAGAN CAREY Date: 2021-10-27 10:21 Normal [facility] 10-20-2021 [facility] Telephone ([place]) -- LANI LIZAMA ([id number]) 1950 Date Time Provider Department 10/20/21 ABDON WALKER During your visit today, we recorded the following information about you: Vee Day 10/20/2021 9:43 AM Signed New CBC order. Vee Day Allergies As of Date: 10/20/2021 Noted Allergy Reaction Nkda [Other] 07/28/2018 16 - Unknown Comments: Received name: Nkviola Date Reviewed: 10/20/2021 Reviewed by: Vickie Barrera PA-C - Fully Assessed Reason for Visit: Lab Orders [0648] Primary Visit Diagnosis:Monoclonal gammopathy [D47.2] Order(s):CBC + DIFF [SQCBCDIF] Order #: [id number] FUTURE Prescriptions as of 10/24/2021 - famotidine [...] Status:Closed by VEE DAY on 10/24/21 Normal [facility] RAD - CT Reporton 10-06-2021 RAD - CT Report [id number]:127 Normal [facility] CT ABD/PELVIS WO CONon 10-03 [...] aorta. No aneurysm. Electronically authenticated by: HIGINIO MASHA Date: 2021-10-03 16:29 Normal [facility] Ambulatory Visit Summaryon 0 09-29-2021 Ambulatory Visit Summary LANI LIZAMA :1950 Visit Date:09/29/2021 Ambulatory Visit Instructions Your Diagnosis Abdominal pain, RLQ Nausea Tests Performed CT Abdomen/Pelvis w/o Contrast -- Results Pending -- Please visit your patient portal for your results or contact your primary care physician. Your Care Team Attending Physician - Gagan DAVID MD Primary Care Physician - HARLEY CRESPO DO [...] - Percutaneous coronary intervention (2017), Aortic stent (2017), PCI - Percutaneous coronary intervention (2015), PTCA [...] RLQ ASHD (arteriosclerotic heart disease) Atheroscler of [place] artery of both legs with intermit claudication [...] infrarenal abdominal aorta due to atherosclerosis Normal [facility] Outside Colonoscopyon 2021 Outside Colonoscopy [id number]:127 Normal [facility] Physician Referralon 022 Physician Referral [id number]:127 Normal [facility] PROF 14(COMP METB)on 022 Albumin [Mass/Vol] 4.1 g/dL Normal 3.4-5.0 [facility] Comment on above: Performed By: #### P T, PTT #### [facility] [address] [place] [address] Dr. Mirza Sadler Albumin/Globulin [Mass ratio] 1.2 {ratio} Normal [facility] Comment on above: Performed By: #### P T, PTT #### [facility] [address] [place] [address] Dr. Mirza Sadler ALP [Catalytic activity/Vol] 132 U/L Critically high 46-116 [facility] Comment on above: Performed By: #### P T, PTT #### [facility] [address] [place] [address] Dr. Mirza Sadler ALT [Catalytic activity/Vol] 30 U/L Normal 16-63 [facility] Comment on above: Performed By: #### P T, PTT #### [facility] [address] [address] [address] Mirza Sadler Anion gap [Moles/Vol] 10.7 mmol/L Normal [facility] Comment on above: Performed By: #### P T, PTT #### [facility] [address] [place] [address] Dr. Mirza Sadler AST [Catalytic activity/Vol] 21 U/L Normal 15-37 [facility] Comment on above: Performed By: #### P T, PTT #### [facility] [address] [place] [address] Dr. Mirza Sadler Bilirubin [Mass/Vol] 0.7 mg/dL Normal 0.2-1.0 [facility] Comment on above: Performed By: #### P T, PTT #### [facility] [address] [address] [address] Mirza Sadler Calcium [Mass/Vol] 9.0 mg/dL Normal 8.5-10.1 [facility] Comment on above: Performed By: #### P T, PTT #### [facility] [address] [address] [address] Mirza Sadler Chloride [Moles/Vol] 106 mmol/L Normal 98-107 [facility] Comment on above: Performed By: #### P T, PTT #### [facility] [address] [place] [address] Dr. Mirza Sadler CO2 [Moles/Vol] 27.5 mmol/L Normal 21.0-32.0 [facility] Comment on above: Performed By: #### P T, PTT #### [facility] [address] [place] [address] Dr. Mirza Sadler Creatinine [Mass/Vol] 1.77 mg/dL Critically high 0.70-1.30 [facility] Comment on above: Performed By: #### P T, PTT #### [facility] [address] [place] [address] Dr. Mirza Sadler EGFR-AF ETHIOPIAN 46 mL/min/1.73m2 Critically low >=60 [facility] Comment on above: Performed By: #### P T, PTT #### [facility] [address] [place] [address] Dr. Mirza Sadler EGFR-NON AF ETHIOPIAN 38 mL/min/1.73m2 Critically low >=60 [facility] Comment on above: Performed By: #### P T, PTT #### [facility] [address] [place] [address] Dr. Mirza Sadler Globulin (S) [Mass/Vol] 3.5 g/dL Normal [facility] Comment on above: Performed By: #### P T, PTT #### [facility] [address] [place] [address] Dr. Mirza Sadler Glucose [Mass/Vol] 135 mg/dL Critically high 74-106 [facility] Comment on above: Performed By: #### P T, PTT #### [facility] [address] [address] [address] Mirza Sadler Potassium [Moles/Vol] 4.2 mmol/L Normal 3.5-5.1 [facility] Comment on above: Performed By: #### P T, PTT #### [facility] [address] [address] [address] Mirza Sadler Protein [Mass/Vol] 7.6 g/dL Normal 6.4-8.2 [facility] Comment on above: Performed By: #### P T, PTT #### [facility] [address] [address] [address] Mirza Sadler Sodium [Moles/Vol] 140 mmol/L Normal 136-145 [facility] Comment on above: Performed By: #### P T, PTT #### [facility] [address] [address] [address] Mirza Sadler Urea nitrogen [Mass/Vol] 17.0 mg/dL Normal 7.0-18.0 [facility] Comment on above: Performed By: #### P T, PTT #### [facility] [address] [place] [address] Dr. Mirza Sadler Urea nitrogen/Creatinine [Mass ratio] 9.6 mg/mg Normal [facility] Comment on above: Performed By: #### P T, PTT #### [facility] [address] [place] [address] Dr. Mirza Sadler US SINGLE QUAD RT [...] FLANAGAN Date: 2021-08-27 08:40 Normal [facility] A1C HEMOGLOBINon 07-17-2021 HbA1c (Bld) [Mass fraction] 6.9 % [employer] [facility] Other Glucose - FINGER STICKon Glucose [Mass/Vol] 180 mg/dL [facility] Other HbA1c (Bld) [Mass fraction]o n 07-17-2021 A1C HEMOGLOBIN [employer] Other A1C with Estimated Average G luon 04-10-2021 HbA1c (Bld) [Mass fraction] 6.4 % [facility] Other HbA1c (Bld) [Mass fraction] 243 % [facility] Other Glucoseon 04-10-2021 Glucose [Mass/Vol] 243 mg/dL [facility] Other A1C HEMOGLOBINon 01-03-2021 HbA1c (Bld) [Mass fraction] 6.6 % [facility] Other Glucose - FINGER STICKon Glucose [Mass/Vol] 142 mg/dL [facility] Other HbA1c (Bld) [Mass fraction]o n 01-03-2021 A1C HEMOGLOBIN [employer] Other CNPEleanor 10-27-2020 CNPN Telephone ([employer]) -- ALDA,LANI Nakul ([id number]) 1950 M Date Time Provider Department 10/27/20 [...] Status:Closed by ANGELINE WARE on 10/28/20 Normal [facility] Cardiovascular Lab Reporton 10-16-2018 Cardiovascular Lab Report [facility] Patient Name: Lani Lizama [facility] MR #: [id number] Physician: Pinky Bishop, Department of M.D. Medicine Service Date: 10/15/2018 Division of Birthdate: 1950 Cardiology Room #: [id number] Adult Cardiovascular Services [place] [address] Cardiovascular Laboratory Report FINAL IMPRESSIONS: 1. Severe three-vessel bois forte coronary artery disease. 2. Utfi-vy-weyd bypass grafts patent. 3. Mild in-stent restenosis [...] 4. Follow up with me in the [facility] in the next 4-6 weeks. 5. Follow [...] guidance and using a micropuncture kit. A 6-Algerian Glidesheath was inserted without difficulty. Coronary angiography [...] of the vessel. There is evidence of asln-oc-quzay collaterals. The distal vessel is supplied via [...] is a long stented segment in the mobuflos-ih-utojfl portion of the vessel with 30% in-stent restenosis. The vessel distal to the touchdown shows caliber reduction and no discrete stenosis. There is diffuse disease in the branches. Saphenous vein graft to the posterior descending artery. This is widely patent. It shows an extensive stented segment from ubrfbdqb-rf-kcoogvwulx of the vessel. There is a 40%-50% [...] Jayshree Bishop M.D. Date Trans: 10/16/2018 05:01 Brandie [id number] cc: Harley Crespo D.O. [address] [place] [id number] Normal [facility] BASIC METABOLIC PANELon 09-29 Calcium [Mass/Vol] 8.9 mg/dL Normal 8.6-10.3 [facility] Comment on above: Order Comment: No: D o not add to previous draw Performed By: #### 1 0070, [id number] #### [facility] [address] [place] [address], [facility] Chloride [Moles/Vol] 110 mmol/L High 98-107 [facility] Comment on above: Order Comment: No: D o not add to previous draw Performed By: #### 1 0070, [id number] #### [facility] [address] [place] [address], [place] CO2 [Moles/Vol] 26 mmol/L Normal 21-31 [facility] Comment on above: Order Comment: No: D o not add to previous draw Performed By: #### 1 69, [id number] #### [facility] [address] [place] [address], [place] Creatinine [Mass/Vol] 1.52 mg/dL High 0.70-1.30 [facility] Comment on above: Order Comment: No: D o not add to previous draw Performed By: #### 1 69, [id number] #### [facility] [address] [place] [address], [place] GFR/1.73 sq M predicted among blacks MDRD (S/P/Bld) [Vol rate/Area] 56 ml/min/1.73sq m Abnormal >60 [facility] Comment on above: Order Comment: No: D o not add to previous draw Performed By: #### 1 69, [id number] #### [facility] [address] [place] [address], [place] GFR/1.73 sq M predicted among non-blacks MDRD (S/P/Bld) [Vol rate/Area] 46 ml/min/1.73sq m Abnormal >60 [facility] Comment on above: Order Comment: No: D o not add to previous draw Performed By: #### 1 69, 61153 #### [facility] [address] [place] [address], [place] Glucose [Mass/Vol] 89 mg/dL Normal 70-100 [facility] Comment on above: Order Comment: No: D o not add to previous draw Performed By: #### 1 69, 46600 #### [facility] [address] [place] [address], [place] Potassium [Moles/Vol] 3.9 mmol/L Normal 3.5-5.1 [facility] Comment on above: Order Comment: No: D o not add to previous draw Performed By: #### 1 0, 42462 #### [facility] [address] [place] [address], [facility] Sodium [Moles/Vol] 141 mmol/L Normal 136-145 [facility] Comment on above: Order Comment: No: D o not add to previous draw Performed By: #### 1 69, 01751 #### [facility] [address] Urea nitrogen [Mass/Vol] 19 mg/dL Normal 7-25 [facility] Comment on above: Order Comment: No: D o not add to previous draw Performed By: #### 1 69, 37108 #### [facility] [address] [place] [address], [facility] CBC W/DIFFon 10-15-2018 ABS BASOPHILS 0.1 10*3/uL Normal 0.0-0.2 [facility] Comment on above: Order Comment: No: D o not add to previous draw Performed By: #### 5 0103 #### [facility] [address] [place] [address], [facility] ABS IMM GRANS 0.0 10*3/uL Normal 0.0-0.2 [facility] Comment on above: Order Comment: No: D o not add to previous draw Performed By: #### 5 0103 #### [facility] [address] [place] [address], [facility] ABS NEUTROPHILS 3.5 10*3/uL Normal 1.6-7.6 [facility] Comment on above: Order Comment: No: D o not add to previous draw Performed By: #### 5 0103 #### [facility] [address] [place] [address], [facility] Basophils/100 WBC (Bld) 0.8 % Normal 0.0-1.0 [facility] Comment on above: Order Comment: No: D o not add to previous draw Performed By: #### 5 0103 #### [facility] [address] [place] [address], [facility] Eosinophils (Bld) [#/Vol] 0.3 10*3/uL Normal 0.0-0.5 [facility] Comment on above: Order Comment: No: D o not add to previous draw Performed By: #### 5 0103 #### [facility] [address] [place] [address], [facility] Eosinophils/100 WBC (Bld) 3.9 % Normal 0.0-6.0 [facility] Comment on above: Order Comment: No: D o not add to previous draw Performed By: #### 5 0103 #### [facility] [address] Erythrocyte distribution width (RBC) [Ratio] 13.5 % Normal 11.5-15.0 [facility] Comment on above: Order Comment: No: D o not add to previous draw Performed By: #### 5 0103 #### [facility] [address] [place] [address], [facility] Hematocrit (Bld) [Volume fraction] 39.7 % Normal 39.0-50.0 [facility] Comment on above: Order Comment: No: D o not add to previous draw Performed By: #### 5 0103 #### [facility] [address] [facility] [address], [facility] Hemoglobin (Bld) [Mass/Vol] 13.0 g/dL Normal 13.0-17.0 [facility] Comment on above: Order Comment: No: D o not add to previous draw Performed By: #### 5 0103 #### [facility] [address] [place] [address], [facility] IMMATURE GRANS 0.3 % Normal 0.0-1.0 [facility] Comment on above: Order Comment: No: D o not add to previous draw Performed By: #### 5 0103 #### [facility] [address] [place] [address], [facility] Lymphocytes (Bld) [#/Vol] 1.9 10*3/uL Normal 1.2-4.0 [facility] Comment on above: Order Comment: No: D o not add to previous draw Performed By: #### 5 0103 #### [facility] [address] [place] [address], [facility] Lymphocytes/100 WBC (Bld) 30.1 % Normal 20.0-45.0 [facility] Comment on above: Order Comment: No: D o not add to previous draw Performed By: #### 5 0103 #### [facility] [address] [place] [address], [facility] MCH (RBC) [Entitic mass] 30.0 pg Normal 27.0-33.0 [facility] Comment on above: Order Comment: No: D o not add to previous draw Performed By: #### 5 0103 #### [facility] [address] [place] [address], [facility] MCHC (RBC) [Mass/Vol] 32.7 g/dL Normal 32.0-35.0 [facility] Comment on above: Order Comment: No: D o not add to previous draw Performed By: #### 5 0103 #### [facility] [address] [facility] [place] [address], [facility] MCV (RBC) [Entitic vol] 91.5 fL Normal 82.0-98.0 [facility] Comment on above: Order Comment: No: D o not add to previous draw Performed By: #### 5 0103 #### [facility] [address] [place] [address], [facility] Monocytes (Bld) [#/Vol] 0.7 10*3/uL Normal 0.1-1.0 [facility] Comment on above: Order Comment: No: D o not add to previous draw Performed By: #### 5 0103 #### [facility] [address] [place] [address], [place] MONOS 10.7 % Normal 5.0-12.0 [facility] Comment on above: Order Comment: No: D o not add to previous draw Performed By: #### 5 0103 #### [facility] [address] [place] [address], [place] Neutrophils/100 WBC (Bld) 54.2 % Normal 40.0-72.0 [facility] Comment on above: Order Comment: No: D o not add to previous draw Performed By: #### 5 0103 #### [facility] [address] [place] [address], [place] Nucleated RBC/100 WBC (Bld) [Ratio] 0 % Normal 0-0 [facility] Comment on above: Order Comment: No: D o not add to previous draw Performed By: #### 5 0103 #### [facility] [address] [place] [address], [place] PLAT CNT 164 10*3/uL Normal 150-400 [facility] Comment on above: Order Comment: No: D o not add to previous draw Performed By: #### 5 0103 #### [facility] [address] [place] [address], [facility] RBC (Bld) [#/Vol] 4.34 10*6/uL Normal 4.20-5.70 [facility] Comment on above: Order Comment: No: D o not add to previous draw Performed By: #### 5 0103 #### [facility] [address] [place] [address], [place] WBC (Bld) [#/Vol] 6.38 10*3/uL Normal 4.00-10.60 [facility] Comment on above: Order Comment: No: D o not add to previous draw Performed By: #### 5 0103 #### [facility] [address] [place] [address], [facility] MAGNESIUM BLOODon 10-15-2018 Magnesium [Mass/Vol] 2.0 mg/dL Normal 1.9-2.7 [facility] Comment on above: Order Comment: No: D o not add to previous draw Performed By: #### 1 0070, 34200 #### [facility] [address] [facility] [address], [facility] PROTHROMBIN TIMEon 9 INR Coag (PPP) [Relative time] 1.11 {INR} Normal 0.91-1.16 [facility] Comment on above: Order Comment: No: [...] 1995;108:[id number]. Performed By: #### 5 6101 #### [facility] [address] [place] [address], [facility] PT Coag (PPP) [Time] 14.3 s Normal 12.3-14.8 [facility] Comment on above: Order Comment: No: D o not add to previous draw Result Comment: ALL RESULTS MUST BE INTERPRETED WITH RESPECT TO BLOOD DRAWING ARTIFACT OR DILUTION ERROR OF ANTICOAGULANT AT THE TIME OF SAMPLING. Performed By: #### 5 6101 #### [facility] [address] [facility] POC GLUCOSE LABon 10-14-2018 Glucose [Mass/Vol] 180 mg/dL High 70-100 [facility] Comment on above: Performed By: #### 8 5499 #### [facility] [address] [facility] Cardiovascular Lab Reporton 02-25-2018 Cardiovascular Lab Report [facility] Patient Name: Lani Lizama [facility] MR #: [id number] Physician: Pinky Bishop Department of M.D. Medicine Service Date: 02/24/2018 Division of Birthdate: 1950 Cardiology Room #: [id number] Adult Cardiovascular Services [facility] [address] [place] [address] Cardiovascular Laboratory Report FINAL IMPRESSIONS: 1. 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 2. Severe 3-vessel bois forte coronary artery disease. 3. 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 4. Urtwzhhy-qb-yzsysk systemic hypertension. RECOMMENDATIONS: 1. Aspirin 81 mg lifelong. 2. Plavix 75 mg daily for a minimum of 6 months, preferably termite helper. 3. Aggressive cardiovascular risk factor modification. 4. Optimization of medical management; high intensity statin therapy as tolerated, we will switch his Toprol-XL to Coreg 25 mg p.o. b.i.d., and angiotensin-converting enzyme inhibitor. 5. Follow up with me in the [facility] in the next 2-3 weeks. 6. Follow up with Dr. Crespo as scheduled. PROCEDURES: Limited femoral angiography, bilateral selective coronary angiography, saphenous vein graft angiography, angiography of the left internal mammary artery graft, limited angiography of the left subclavian, percutaneous balloon angioplasty, and Synergy drug-eluting stent placement to the saphenous vein graft to the obtuse marginal, placement of a 6-Algerian MYNXGRIP closure device. METHODS: After risks, benefits, and alternatives were explained, written informed consent was obtained. The patient was prepped and draped in usual sterile fashion over both groins. Using 1% lidocaine solution, local infiltration anesthesia was achieved over the right groin. Using a micropuncture kit, access of the right common femoral artery was obtained. A 6-Algerian 11 cm sheath was exchanged then without [...] to proceed with an interventional procedure. A 6-Algerian JR4 guide catheter was advanced in and [...] the procedure. All catheters were removed. A 6-Algerian MYNXGRIP closure device was deployed per protocol [...] is a 30% touchdown stenosis of the bois forte vessel. There is evidence of hglw-lh-yjajb collaterals supplying the distal right coronary artery. Limited femoral angiography, this shows mild plaque and anatomy suitable for closure device. INDICATIONS: Unstable angina. Electronically Signed by: Pinky Bishop M.D. 03/06/2018 12:15 P Pinky Bishop M.D. Date Dict: 02/24/2018/01:39 P/Pinky Bishop M.D. Date Trans: 02/25/2018 02:12 Nakul/gatito [id number] cc: Harley Crespo D.O. [address] [place] [phone] Normal [facility] POC GLUCOSE LABon 02-25-2018 Glucose [Mass/Vol] 150 mg/dL High 70-100 [facility] Comment on above: Performed By: #### 8 5499 #### [facility] [address] [place] [address], [facility] POC GLUCOSE LABon 02-24-2018 Glucose [Mass/Vol] 192 mg/dL High 70-100 [facility] Comment on above: Performed By: #### 8 5499 #### [facility] [address] [place] [address], [place] Glucose [Mass/Vol] 186 mg/dL High 70-100 [facility] Comment on above: Performed By: #### 8 5499 #### [facility] [address] [place] [address], [facility] Vital Signs Date Time Vital Sign Value Performing Clinician Facility 08-12-2023 08:37-0400 Body height 170.18 cm [facility] 08-12-2023 08:37-0400 Body mass index (BMI) [Ratio] 27.6 kg/m2 [facility] 08-12-2023 08:37-0400 Body weight 79.88 kg [facility] 08-12-2023 08:37-0400 Diastolic blood pressure 84 mm[Hg] [facility] 08-12-2023 08:37-0400 Heart rate 82 /min [facility] 08-12-2023 08:37-0400 Respiratory rate 12 /min [facility] 08-12-2023 08:37-0400 Systolic blood pressure 134 mm[Hg] [facility] 07-02-2023 08:54-0400 Body height 170.18 cm [facility] 07-02-2023 08:54-0400 Body mass index (BMI) [Ratio] 27.3 kg/m2 [facility] 07-02-2023 08:54-0400 Body temperature 96.5 [degF] [facility] 07-02-2023 08:54-0400 Body weight 79.09 kg [facility] 07-02-2023 08:54-0400 Diastolic blood pressure 79 mm[Hg] [facility] 07-02-2023 08:54-0400 Heart rate 87 /min [facility] 07-02-2023 08:54-0400 Respiratory rate 18 /min [facility] 07-02-2023 08:54-0400 SaO2% (BldA) [Mass fraction] 96 % [facility] 07-02-2023 08:54-0400 Systolic blood pressure 120 mm[Hg] [facility] 06-18-2023 10:51-0400 Body height 170.18 cm [facility] 06-18-2023 10:51-0400 Body mass index (BMI) [Ratio] 26.6 kg/m2 [facility] 06-18-2023 10:51-0400 Body weight 77.11 kg [facility] 06-18-2023 10:51-0400 Diastolic blood pressure 84 mm[Hg] [facility] 06-18-2023 10:51-0400 Heart rate 95 /min [facility] 06-18-2023 10:51-0400 Respiratory rate 18 /min [facility] 06-18-2023 10:51-0400 SaO2% (BldA) [Mass fraction] 97 % [facility] 06-18-2023 10:51-0400 Systolic blood pressure 127 mm[Hg] [facility] 05-03-2023 09:30-0500 Body height 170.18 cm DO Harley Ball Work Phone: [facility] 05-03-2023 09:30-0500 Body weight 77.29 kg DO Harley Ball Work Phone: [facility] 05-03-2023 09:30-0500 Diastolic blood pressure 85 mm[Hg] DO Harley Ball Work Phone: [facility] 05-03-2023 09:30-0500 Systolic blood pressure 126 mm[Hg] DO Harley Ball Work Phone: [facility] 03-12-2023 11:15-0500 Body height 170.18 cm Tondra Mapus Other [facility] 03-12-2023 11:15-0500 Body mass index (BMI) [Ratio] 27.03 kg/m2 Tondra Mapus Other [facility] Other 03-12-2023 11:15-0500 Body weight 78.29 kg Tondra Mapus Other [facility] 03-12-2023 11:15-0500 Diastolic blood pressure 79 mm[Hg] Tondra Mapus Other [facility] 03-12-2023 11:15-0500 Respiratory rate 18 /min Tondra Mapus Other [facility] Other 03-12-2023 11:15-0500 SaO2% (BldA) [Mass fraction] 98 % Tondra Mapus Other [facility] Other 03-12-2023 11:15-0500 Systolic blood pressure 128 mm[Hg] Tondra Mapus Other [facility] 01-07-2023 10:00-0400 Body height 170.18 cm Kingsley Latisha Other [facility] Other 01-07-2023 10:00-0400 Body mass index (BMI) [Ratio] 27 kg/m2 Kingsley Latisha Other [facility] Other 01-07-2023 10:00-0400 Body temperature 97.7 [degF] Kingsley Latisha Other [facility] Other 01-07-2023 10:00-0400 Body weight 78.2 kg Kingsley Latisha Other [facility] Other 01-07-2023 10:00-0400 Diastolic blood pressure 73 mm[Hg] Kingsley Latisha Other [facility] Other 01-07-2023 10:00-0400 Respiratory rate 16 /min Kingsley Latisha Other [facility] Other 01-07-2023 10:00-0400 SaO2% (BldA) [Mass fraction] 98 % Kingsley Latisha Other [facility] Other 01-07-2023 10:00-0400 Systolic blood pressure 108 mm[Hg] Kingsley Latisha Other [facility] Other 12-31-2022 09:30-0400 Body height 170.18 cm Harley Ball Other [facility] Other 12-31-2022 09:30-0400 Body mass index (BMI) [Ratio] 27.03 kg/m2 Harley Ball Other [facility] Other 12-31-2022 09:30-0400 Body weight 78.29 kg Harley Ball Other [facility] Other 12-31-2022 09:30-0400 Diastolic blood pressure 69 mm[Hg] Harley Ball Other [facility] Other 12-31-2022 09:30-0400 Respiratory rate 16 /min Harley Ball Other [facility] Other 12-31-2022 09:30-0400 Systolic blood pressure 102 mm[Hg] Harley Ball Other [facility] Other 08-31-2022 08:45-0400 Body height 170.18 cm Harley Ball Other [facility] Other 08-31-2022 08:45-0400 Body mass index (BMI) [Ratio] 26.72 kg/m2 Harley Ball Other [facility] Other 08-31-2022 08:45-0400 Body weight 77.38 kg Harley Ball Other [facility] Other 08-31-2022 08:45-0400 Diastolic blood pressure 69 mm[Hg] Harley Ball Other [facility] Other 08-31-2022 08:45-0400 Respiratory rate 12 /min Harley Ball Other [facility] Other 08-31-2022 08:45-0400 Systolic blood pressure 102 mm[Hg] Harley Ball Other [facility] Other 07-02-2022 10:40-0400 Body height 170.18 cm Kingsley Latisha Other [facility] Other 07-02-2022 10:40-0400 Body mass index (BMI) [Ratio] 27.69 kg/m2 Kingsley Latisha Other [facility] Other 07-02-2022 10:40-0400 Body temperature 96.4 [degF] Kingsley Latisha Other [facility] Other 07-02-2022 10:40-0400 Body weight 80.2 kg Kingsley Latisha Other [facility] Other 07-02-2022 10:40-0400 Diastolic blood pressure 71 mm[Hg] Kingsley Latisha Other [facility] Other 07-02-2022 10:40-0400 Respiratory rate 16 /min Kingsley Latisha Other [facility] Other 07-02-2022 10:40-0400 SaO2% (BldA) [Mass fraction] 97 % Kingsley Latisha Other [facility] Other 07-02-2022 10:40-0400 Systolic blood pressure 115 mm[Hg] Kingsley Latisha Other [facility] Other 06-28-2022 09:30-0400 Body height 170.18 cm Harley Ball Other [facility] Other 06-28-2022 09:30-0400 Body mass index (BMI) [Ratio] 27.16 kg/m2 Harley Ball Other [facility] Other 06-28-2022 09:30-0400 Body weight 78.65 kg Harley Ball Other [facility] Other 06-28-2022 09:30-0400 Diastolic blood pressure 66 mm[Hg] Harley Ball Other [facility] Other 06-28-2022 09:30-0400 Respiratory rate 12 /min Harley Ball Other [facility] Other 06-28-2022 09:30-0400 Systolic blood pressure 115 mm[Hg] Harley Ball Other [facility] Other 06-26-2022 08:45-0400 Body height 170.18 cm Tondra Mapus Other [facility] Other 06-26-2022 08:45-0400 Body mass index (BMI) [Ratio] 27.75 kg/m2 Tondra Mapus Other [facility] Other 06-26-2022 08:45-0400 Body weight 80.38 kg Tondra Mapus Other [facility] Other 06-26-2022 08:45-0400 Diastolic blood pressure 61 mm[Hg] Tondra Mapus Other [facility] Other 06-26-2022 08:45-0400 Respiratory rate 16 /min Tondra Mapus Other [facility] Other 06-26-2022 08:45-0400 SaO2% (BldA) [Mass fraction] 96 % Tondra Mapus Other [facility] Other 06-26-2022 08:45-0400 Systolic blood pressure 105 mm[Hg] Tondra Mapus Other [facility] Other 03-20-2022 09:15-0500 Body height 170.18 cm Tondra Mapus Other [facility] Other 03-20-2022 09:15-0500 Body mass index (BMI) [Ratio] 26.15 kg/m2 Tondra Mapus Other [facility] Other 03-20-2022 09:15-0500 Body weight 75.75 kg Tondra Mapus Other [facility] Other 03-20-2022 09:15-0500 Diastolic blood pressure 57 mm[Hg] Tondra Mapus Other [facility] [employer] Other 03-20-2022 09:15-0500 Respiratory rate 16 /min Tondra Mapus Other [facility] Other 03-20-2022 09:15-0500 SaO2% (BldA) [Mass fraction] 98 % Tondra Mapus Other [facility] [employer] Other 03-20-2022 09:15-0500 Systolic blood pressure 117 mm[Hg] Tondra Mapus Other [facility] [employer] Other 01-17-2022 11:45-0400 Body height 170.18 cm DO Harley Ball Work Phone: [facility] 01-17-2022 11:22-0400 Diastolic blood pressure 68 mm[Hg] DO Harley Ball Work Phone: [facility] 01-17-2022 11:22-0400 Heart rate 60 /min DO Harley Ball Work Phone: [facility] 01-17-2022 11:22-0400 Systolic blood pressure 118 mm[Hg] DO Harley Ball Work Phone: [facility] 01-17-2022 11:05-0400 Body temperature 97.4 [degF] DO Harley Ball Work Phone: [facility] 01-17-2022 11:05-0400 Respiratory rate 18 /min DO Harley Ball Work Phone: [facility] 01-17-2022 11:05-0400 SaO2% (BldA) [Mass fraction] 95 % DO Harley Ball Work Phone: [facility] 01-17-2022 06:58-0400 Body weight 77.9 kg DO Harley Ball Work Phone: [facility] 01-15-2022 15:23-0400 Inhaled oxygen flow rate 2 L/min DO Harley Crespo Work Phone: [facility] 12-18-2021 09:45-0400 Body height 170.18 cm Tondra Mapus Other [employer] Other 12-18-2021 09:45-0400 Body mass index (BMI) [Ratio] 27.25 kg/m2 Tondra Mapus Other [employer] [facility] Other 12-18-2021 09:45-0400 Body weight 78.93 kg Tondra Mapus Other [employer] [facility] Other 12-18-2021 09:45-0400 Diastolic blood pressure 65 mm[Hg] Tondra Mapus Other [employer] [facility] Other 12-18-2021 09:45-0400 Respiratory rate 16 /min Tondra Mapus Other [facility] Other 12-18-2021 09:45-0400 SaO2% (BldA) [Mass fraction] 97 % Tondra Mapus Other [facility] Other 12-18-2021 09:45-0400 Systolic blood pressure 133 mm[Hg] Tondra Mapus Other [facility] Other 09-29-2021 13:13-0400 Blood Pressure Location Gagan DAVID General Surgery Luis Enrique 09-29-2021 13:13-0400 Diastolic blood pressure 74 mm[Hg] Gagan DAVID General Surgery Luis Enrique 09-29-2021 13:13-0400 Heart rate 60 /min Gagan NILL General Surgery [place] 09-29-2021 13:13-0400 Respiratory rate 16 /min Gagan NILL General Surgery [place] 09-29-2021 13:13-0400 Systolic blood pressure 138 mm[Hg] Gagan NILL General Surgery Luis Enrique 07-17-2021 09:45-0400 Body height 170.18 cm Tondra Mapus Other [facility] Other 07-17-2021 09:45-0400 Body mass index (BMI) [Ratio] 30.69 kg/m2 Tondra Mapus Other [facility] Other 07-17-2021 09:45-0400 Body weight 88.91 kg Tondra Mapus Other [facility] Other 07-17-2021 09:45-0400 Diastolic blood pressure 73 mm[Hg] Tondra Mapus Other [employer] Other 07-17-2021 09:45-0400 Respiratory rate 16 /min Tondra Mapus Other [facility] Other 07-17-2021 09:45-0400 SaO2% (BldA) [Mass fraction] 97 % Tondra Mapus Other [facility] Other 07-17-2021 09:45-0400 Systolic blood pressure 163 mm[Hg] Tondra Mapus Other [facility] Other 06-06-2021 10:20-0500 Body height 170.18 cm Kingsley Latisha Other [facility] [employer] Other 06-06-2021 10:20-0500 Body mass index (BMI) [Ratio] 30.29 kg/m2 Kingsley Latisha Other [employer] Other 06-06-2021 10:20-0500 Body temperature 96.1 [degF] Kingsley Latisha Other [employer] Other 06-06-2021 10:20-0500 Body weight 87.73 kg Kingsley Latisha Other [facility] Other 06-06-2021 10:20-0500 Diastolic blood pressure 70 mm[Hg] Kingsley Latisha Other [employer] Other 06-06-2021 10:20-0500 Respiratory rate 18 /min Kingsley Latisha Other [facility] Other 06-06-2021 10:20-0500 SaO2% (BldA) [Mass fraction] 97 % Kingsley Latisha Other [facility] [employer] Other 06-06-2021 10:20-0500 Systolic blood pressure 160 mm[Hg] Kingsley Latisha Other [employer] Other 04-10-2021 09:15-0500 Body height 170.18 cm Tondra Mapus Other [facility] [employer] Other 04-10-2021 09:15-0500 Body mass index (BMI) [Ratio] 30.99 kg/m2 Tondra Mapus Other [employer] Other 04-10-2021 09:15-0500 Body weight 89.77 kg Tondra Mapus Other [facility] Other 04-10-2021 09:15-0500 Diastolic blood pressure 64 mm[Hg] Tondra Mapus Other [facility] Other 04-10-2021 09:15-0500 Respiratory rate 18 /min Tondra Mapus Other [employer] Other 04-10-2021 09:15-0500 SaO2% (BldA) [Mass fraction] 98 % Tondra Mapus Other [facility] Other 04-10-2021 09:15-0500 Systolic blood pressure 136 mm[Hg] Tondra Mapus Other [facility] [employer] Other 02-14-2021 10:00-0500 Body height 170.18 cm Kingsley Latisha Other [facility] Other 02-14-2021 10:00-0500 Body mass index (BMI) [Ratio] 30.98 kg/m2 Kingsley Latisha Other [employer] Other 02-14-2021 10:00-0500 Body temperature 96 [degF] Kingsley Latisha Other [facility] Other 02-14-2021 10:00-0500 Body weight 89.72 kg Kingsley Latisha Other [employer] Other 02-14-2021 10:00-0500 Diastolic blood pressure 60 mm[Hg] Kingsley Latisha Other [employer] Other 02-14-2021 10:00-0500 Respiratory rate 16 /min Kingsley Latisha Other [employer] Other 02-14-2021 10:00-0500 SaO2% (BldA) [Mass fraction] 97 % Kingsley Latisha Other [employer] Other 02-14-2021 10:00-0500 Systolic blood pressure 130 mm[Hg] Kingsley Latisha Other [employer] Other 01-03-2021 10:15-0400 Body height 170.18 cm Tondra Mapus Other [facility] Other 01-03-2021 10:15-0400 Body mass index (BMI) [Ratio] 31.01 kg/m2 Tondra Mapus Other [facility] Other 01-03-2021 10:15-0400 Body weight 89.81 kg Tondra Mapus Other [facility] Other 01-03-2021 10:15-0400 Diastolic blood pressure 67 mm[Hg] Tondra Mapus Other [facility] [employer] Other 01-03-2021 10:15-0400 Respiratory rate 16 /min Tondra Mapus Other [employer] Other 01-03-2021 10:15-0400 SaO2% (BldA) [Mass fraction] 99 % Tondra Mapus Other [facility] [employer] Other 01-03-2021 10:150400 Systolic blood pressure 151 mm[Hg] Arlen Kwong Other [employer] Other Encounters Encounter Date Encounter Type Care Provider Facility Start: 08-12-2023 End: 08-12-2023 ambulatory [facility] Work Phone: Start: 08-12-2023 End: 08-12-2023 Patient encounter procedure [facility] Work Phone: Start: 07-02-2023 End: 07-02-2023 ambulatory [facility] Work Phone: Start: 07-02-2023 End: 07-02-2023 Patient encounter procedure [facility] Work Phone: Start: 06-24-2023 Non-patient / Non-visit [facility] Work Phone: Start: 06-18-2023 End: 06-18-2023 ambulatory [facility] Work Phone: Start: 06-18-2023 End: 06-18-2023 Patient encounter procedure [facility] Work Phone: Start: 06-13-2023 Non-patient / Non-visit [facility] Work Phone: Start: 05-07-2023 End: 05-07-2023 ambulatory [facility] Start: 05-03-2023 End: 05-03-2023 Patient encounter procedure DO Harley Crespo Work Phone: [facility]- Start: 04-30-2023 Telephone encounter Kingsley Good [facility] Start: 04-30-2023 End: 04-30-2023 ambulatory [facility]IL[facility] [employer] Other Start: 04-23-2023 End: 04-23-2023 ambulatory Tondra Varghese Other [facility] Other Start: 04-23-2023 Telephone encounter Arlen Shane [facility] Start: 03-18-2023 End: 03-18-2023 ambulatory LAILA [facility] Start: 03-12-2023 (DM) Diabetes Arlen Kwong [facility] Start: 03-12-2023 End: 03-13-2023 ambulatory DO Harley Cherie Work Phone: [employer] Other Start: 03-12-2023 End: 03-12-2023 Discharged Recurring DO Harley Cherie Work Phone: [facility] Work Phone: Start: 03-12-2023 End: 03-12-2023 Patient encounter procedure DO Harley Cherie Work Phone: [facility] Work Phone: Start: 03-07-2023 End: 03-07-2023 ambulatory [facility] Start: 03-05-2023 End: 03-05-2023 ambulatory [facility] Start: 02-19-2023 End: 02-19-2023 [facility] Start: 02-12-2023 Telephone encounter Harley Garcia [facility] Start: 02-12-2023 End: 02-12-2023 ambulatory KEVIN [facility] [employer] Other Start: 02-07-2023 End: 02-07-2023 ambulatory Harley Crespo Other [employer] Other Start: 02-07-2023 Telephone encounter Harley Garcia [facility] Start: 02-06-2023 End: 02-06-2023 ambulatory Arlen Kwong Other [employer] Other Start: 02-06-2023 Telephone encounter Arlen Shane [facility] Start: 02-01-2023 End: 02-01-2023 ambulatory LAILA DUARTE [facility] Start: 01-29-2023 End: 01-29-2023 ambulatory Harley Crespo Other [employer] Other Start: 01-29-2023 Telephone encounter Harley HERRMANN [facility] Start: 01-25-2023 End: 01-28-2023 Evaluation and management of inpatient DELTA VARGAS [facility] Start: 01-17-2023 Telephone encounter Arlen Shane [facility] Start: 01-17-2023 End: 01-17-2023 [facility] [employer] Other Start: 01-07-2023 End: 01-07-2023 ambulatory Harley Crespo Other [employer] Other Start: 01-07-2023 Office outpatient visit 25 minutes Kingsley Latisha [facility] Start: 01-07-2023 Telephone encounter Harley Crespo MONTEZ Jose [facility] Start: 01-04-2023 End: 01-04-2023 ambulatory Kingsley Latisha Other [facility] [employer] Other Start: 01-04-2023 Telephone encounter Kingsley Latisha [facility] Start: 01-01-2023 End: 01-01-2023 ambulatory Kingsley Latisha Other [employer] Other Start: 01-01-2023 Telephone encounter Kingsley Latisha [facility] Start: 12-31-2022 End: 12-31-2022 ambulatory Harley Crespo Other [employer] Other Start: 12-31-2022 Office outpatient visit 25 minutes Harley Crespo [facility] Start: 12-31-2022 Telephone encounter Harley HERRMANN G [facility] Start: 12-13-2022 End: 12-13-2022 ambulatory Denita Chairez Other [facility] [employer] Other Start: 12-13-2022 Nursing evaluation o f patient and report Denita Chairez [facility] Start: 11-23-2022 End: 11-23-2022 ambulatory Tondra Mapus Other [employer] Other Start: 11-23-2022 Telephone encounter Tondra Mapus [facility] Start: 10-12-2022 End: 10-12-2022 ambulatory Tondra Mapus Other [employer] Other Start: 10-12-2022 Telephone encounter Tondra Mapus [facility] Start: 10-09-2022 Telephone encounter Harley HERRMANN G [facility] Start: 10-09-2022 End: 10-09-2022 ambulatory [facility] [employer] Other Start: 10-01-2022 End: 10-01-2022 ambulatory Harley Crespo Other [employer] Other Start: 10-01-2022 Telephone encounter Harley HERRMANN G [facility] Start: 09-27-2022 End: 09-27-2022 ambulatory Kingsley Latisha Other [employer] Other Start: 09-27-2022 Telephone encounter Kingsley Latisha [facility] Start: 09-26-2022 End: 09-26-2022 ambulatory Harley Crespo Other [employer] Other Start: 09-26-2022 Telephone encounter Harley HERRMANN G [facility] Start: 09-19-2022 End: 09-19-2022 ambulatory Kingsley Latisha Other [employer] Other Start: 09-19-2022 Telephone encounter Kingsley Latisha [facility] Start: 09-12-2022 End: 09-12-2022 ambulatory Harley Crespo Other [employer] Other Start: 09-12-2022 Telephone encounter Harley HERRMANN [facility] Start: 09-03-2022 End: 09-03-2022 ambulatory Harley Crespo Other [employer] Other Start: 09-03-2022 Telephone encounter Harley HERRMANN G [facility] Start: 08-31-2022 End: 08-31-2022 ambulatory Harley Crespo Other [employer] Other Start: 08-31-2022 Office outpatient visit 25 minutes Harley Cherie [facility] Start: 08-10-2022 End: 08-10-2022 ambulatory Harley Crespo Other [employer] Other Start: 08-10-2022 Telephone encounter Harley HERRMANN [facility] Start: 08-09-2022 End: 08-10-[address] HARLEY CRESPO [facility] [employer] Other Start: 08-09-2022 Telephone encounter Kingsley Latisha [facility] Start: 07-31-2022 End: 07-31-2022 ambulatory KEVIN ARTEAGA [facility] Start: 07-24-2022 End: 07-24-2022 [facility] Start: 07-02-2022 End: 07-02-2022 ambulatory Kingsley Latisha Other [employer] Other Start: 07-02-2022 Office outpatient visit 25 minutes Kingsley Latisha [facility] Start: 06-28-2022 End: 06-28-2022 ambulatory Harley Crespo Other [employer] Other Start: 06-28-2022 Patient encounter procedure Harley Crespo [facility] Start: 06-26-2022 (DM) Diabetes Tondra Mapus [facility] Start: 06-26-2022 End: 06-26-2022 ambulatory Tondra Mapus Other [employer] Other Start: 06-25-2022 End: 06-25-2022 ambulatory [facility] Start: 06-25-2022 End: 06-26-2022 ambulatory KINGSLEY LATISHA Facility:[facility]1 Start: 06-18-2022 End: 06-19-2022 ambulatory TONDRA MAPUS Facility:[facility] Start: 06-05-2022 End: 06-06-[address] HARLEY CRESPO Facility:[facility] Start: 05-29-2022 End: 05-29-2022 ambulatory [facility] Start: 05-26-2022 End: 05-26-2022 ambulatory Harley Crespo Other [employer] Other Start: 05-26-2022 Telephone encounter Harley Crespo [facility] Start: 05-25-2022 End: 05-25-2022 ambulatory Tondra Mapus Other [employer] Other Start: 05-25-2022 Telephone encounter Tondra Map [facility] Start: 05-03-2022 End: 05-04-[address] PINKY BISHOP Facility:[facility]1 Start: 04-18-2022 End: 04-19-[address] PINKY BISHOP Facility:[facility] Start: 03-22-2022 End: 03-23-[address] HIGINIO FLANAGAN Facility:[facility] Start: 03-20-2022 (DM) Diabetes Tondra Mapus [facility] Start: 03-20-2022 End: 03-20-2022 ambulatory Tondra Mapus Other [employer] Other Start: 03-12-2022 End: 03-13-2022 Evaluation and management of inpatient DR PARUL CHU Facility:[facility]1 Start: 03-09-2022 End: 03-10-[address] SHANNON LANDIS Facility:[facility] Start: 03-02-2022 End: 03-03-[address] HARLEY CRESPO Facility:[facility] Start: 02-19-2022 End: 02-19-2022 ambulatory Tondra Mapus Other [employer] Other Start: 02-19-2022 Telephone encounter Tondra Mapus [facility] Start: 02-08-2022 End: 02-08-2022 ambulatory Tondra Mapus Other [employer] Other Start: 02-08-2022 Telephone encounter Tondra Mapus [facility] Start: 01-15-2022 End: 01-17-2022 Evaluation and management of inpatient DO Harley Crespo Work Phone: [facility] Start: 01-15-2022 End: 01-15-[address] HARLEY CRESPO Facility:[facility]1 Start: 12-18-2021 Registered Recurring DO Zamudio in [place] Work Phone: [facility] Start: 12-18-2021 (DM) Diabetes Tondra Mapus [facility] Start: 12-18-2021 End: 12-18-2021 ambulatory Tondra Mapus Other [employer] Other Start: 12-08-2021 End: 12-09-[address] HARLEY CRESPO Facility:[facility]1 Start: 11-30-2021 End: 12-01-2021 ambulatory KINGSLEY GOOD Facility:[facility]1 Start: 11-24-2021 End: 11-25-[address] HARLEY CRESPO Facility:[facility]1 Start: 11-16-2021 End: 11-16-2021 ambulatory Tondra Mapus Other [employer] Other Start: 11-16-2021 Telephone encounter Tondra Mapus [facility] Start: 2021 End: 2021 ambulatory Tondra Mapus Other [employer] Other Start: 2021 Telephone encounter Tondra Mapus [facility] Start: 10-31-2021 End: 10-31-2021 ambulatory Tondra Mapus Other [employer] Other Start: 10-31-2021 Telephone encounter Tondra Mapus [facility] Start: 10-27-2021 End: 10-27-2021 ambulatory [...] 07-24-2021 End: 07-24-2021 ambulatory Tondra Mapus Other [employer] Other Start: 07-24-2021 Telephone encounter Tondra Mapus [facility] Start: 07-17-2021 (DM) Diabetes Tondra Mapus [facility] Start: 07-17-2021 End: 07-17-2021 ambulatory Tondra Mapus Other [employer] Other Start: 06-19-2021 End: 06-19-2021 ambulatory Shannon Escobar Other [employer] Other Start: 06-19-2021 Telephone encounter Shannon Escobar [facility] Start: 06-06-2021 End: 06-06-2021 ambulatory Kingsley Latisha Other [employer] Other Start: 06-06-2021 Office outpatient visit 25 minutes Kingsley Latisha [facility] Start: 05-22-2021 End: 05-22-2021 ambulatory Tondra Mapus Other [employer] Other Start: 05-22-2021 Telephone encounter Tondra Mapus [facility] Start: 05-16-2021 End: 05-16-2021 ambulatory Tondra Mapus Other [employer] Other Start: 05-16-2021 Telephone encounter Tondra Mapus [facility] Start: 04-10-2021 (DM) Diabetes Tondra Mapus [facility] Start: 04-10-2021 End: 04-10-2021 ambulatory Tondra Mapus Other [employer] Other Start: 04-10-2021 Telephone encounter Tondra Mapus [facility] Start: 02-14-2021 End: 02-14-2021 ambulatory Kingsley Latisha Other [employer] Other Start: 02-14-2021 Patient encounter procedure Kingsley Latisha [facility] Start: 02-14-2021 Telephone encounter Tondra Mapus [facility] Start: 01-03-2021 (DM) Diabetes Tondra Mapus [facility] Start: 10-14-2018 End: 10-15-2018 Patient encounter procedure [facility] Facility:[facility] Start: 02-24-2018 End: 02-25-2018 Evaluation and management of inpatient [facility] Procedures Date Procedure Procedure Detail Performing [...] Author Start: 10-26-2023 DIABETES SCREEN DIABETES SCREEN [facility] Start: 01-17-2022 [facility] Start: 01-17-2022 Radionuclide myocard ial perfusion stress study NM rachel perf SPECT rest & str [facility] Start: 01-17-2022 Referral to cardiac rehabilitation program [facility] Start: 01-16-2022 Hospital admission [facility] Start: 01-15-2022 Hospital admission [facility] Start: 11-30-2021 Influenza vaccination INFLUENZA (#1) [facility] Start: 10-24-2021 End: 12-24-2021 CBC W Auto Differential panel - Blood CBC + DIFF Lab Routine Monoclonal gammopathy Expected: 10/24/2021, Expires: 12/24/2021 [facility] Work Phone: Comment on above: Expected: 10/24/2021 , Expires: 12/24/2021 Start: 04-25-2021 Adult depression screening assessment DEPRESSION SCREENING [facility] Start: 04-01-2021 ADVANCE DIRECTIVE DISCUSSION ADVANCE DIRECTIVE DISCUSSION [facility] Start: 11-21-2020 COVID-19 VACCINE (3 - Booster for Pfizer series) COVID-19 VACCINE (3 - Booster for Pfizer series) [facility] Start: 11-07-2001 SHINGRIX VACCINE (1 of 2) SHINGRIX VACCINE (1 of 2) [facility] Start: 11-07-1996 COLOGUARD (FIT-DNA) COLOGUARD (FIT-D NA) [facility] Start: 11-07-1996 Colonoscopy COLONOSCOPY [facility] Start: 11-07-1996 COLORECTAL CANCER SCREENING COLORECTAL CANCER SCREENING [facility] Start: 11-07-[address] COLONOGRAPHY [facility] Start: 11-07-1996 FECAL OCCULT BLOOD FECAL OCCULT BLOO D [facility] Start: 11-07-1996 SIGMOIDOSCOPY SIGMOIDOSCOPY [facility] Start: 11-07-1986 LIPID SCREEN LIPID SCREEN [facility] Start: 11-07-1970 Urine microalbumin profile DTAP,TDAP,TD (1 - Tdap) [facility] Start: 11-07-1969 HEPATITIS C SCREENING HEPATITIS C SC APURVA [facility] Start: 1950 ABDOMINAL AORTIC ANEURYSM SCREENING ABDOMINAL AORTIC ANEURYSM SCREENING [facility] Comprehensive metabo lic 2000 panel - Serum or Plasma [facility] Patient Education Low blood suga r in people with diabetes Diabetes and diet [facility] Work Phone: Patient referral [facility] Work Phone: Renal function 1999 panel - Serum or Plasma [facility] Immunizations Immunization Date Immunization Notes Care Provider Fa amanda 12-13-2022 influenza, high dose seasonal, preservative-free Denita Chairez Other [facility] [employer] Other 12-13-2022 influenza virus vaccine, unspecified formulation DO Harley Crespo Work Phone: [facility] 12-15-2021 influenza virus vaccine, unspecified formulation DO Harley Crespo Work Phone: [facility] 12-15-2021 influenza, high dose seasonal, preservative-free Harley Crespo Other [facility] [employer] Other 02-21-2021 COVID-19 mRNA, Comirnaty (Pfizer) DO Harley Ball Work Phone: [facility] 06-21-2020 COVID-19 Vaccine Pfi zer - Documentation Purposes Only Arlen Kwong Other [facility] 05-30-2020 COVID-19 Vaccine Pfi zer - Documentation Purposes Only Tondra Desireeus Other [facility] 01-17-2018 pneumococcal polysaccharide vaccine, 23 valent Abdon Walker MD Work Phone: [facility] 01-17-2018 Seasonal trivalent influenza vaccine, adjuvanted, preservative free Abdon Walker MD Work Phone: [facility] 01-16-2017 influenza, high dose seasonal, preservative-free Abdon Walker MD Work Phone: [facility] 11-30-2016 influenza, injectabl e, quadrivalent, preservative free Abdon Walker MD Work Phone: [facility] 11-14-2016 pneumococcal conjuga te vaccine, 13 valent Abdon Walker MD Work Phone: [facility] 04-02-2016 pneumococcal polysaccharide vaccine, 23 valent Ton Mapus Other [facility] 01-23-2012 influenza, seasonal, injectable Abdon Walker MD Work Phone: [facility] 12-13-2010 influenza, seasonal, injectable Abdon Walker MD Work Phone: [facility] 01-27-2009 novel [id number], preservative-free, injectable Abdon Walker MD Work Phone: [facility] 01-19-2008 influenza virus vaccine, whole virus Abdon Walker MD Work Phone: [facility] Payers Date Payer Category Payer Unknown MMO MMO MEDICARE SUPPLEMENT [id number] 2019-Present [phone] [address] [place] [address] Indemnity [id number] 2017 Self-pay [id number] 2017 Unknown [id number] 2017 Unknown [id number] 2016 Medicare MEDICARE MEDICAR E A AND B [id number] 2016-Present [phone] [address] [address] [place] [address] Medicare [id number] 1959 Medicare [id number] 1959 Unknown [id number] 1951 Unknown [id number] 2.16.840.1.754386.3.579.2.647 1951 Unknown [id number] 2.16.840.1.335782.3.579.2.647 1951 Unknown [id number] 2.16.840.1.115029.3.579.2.593 1951 Unknown [id number] 2.16.840.1.990578.3.579.2.593 1951 Unknown [id number] 2.16.840.1.694336.3.579.2.593 1951 Unknown [id number] 2.16.840.1.684629.3.579.2.593 1951 Unknown [id number] 2.16.840.1.473900.3.579.2.593 1951 Unknown [id number] 2.16.840.1.381660.3.579.2.593 1951 Unknown [id number] 2.16.840.1.789033.3.579.2.593 1951 Unknown [id number] 2.16.840.1.385638.3.579.2.593 1951 Unknown [id number] 2.16.840.1.047971.3.579.2.593 1951 Unknown [id number] 2.16.840.1.718288.3.579.2.593 1951 Unknown [id number] 2.16.840.1.437947.3.579.2.593 1951 Unknown [id number] 2.16.840.1.199715.3.579.2.593 1951 Unknown [id number] 2.16.840.1.152614.3.579.2.593 1951 Unknown [id number] 2.16.840.1.623748.3.579.2.593 1951 Unknown [id number] 2.16.840.1.532942.3.579.2.593 1951 Unknown [id number] 2.16.840.1.831088.3.579.2.593 1951 Unknown [id number] 2.16.840.1.699777.3.579.2.593 1951 Unknown [id number] 2.16.840.1.674546.3.579.2.593 Unknown [id number] Unknown [id number] 2.16.840.1.462543.3.579.2.531 Unknown HCAP/HFA/FAP Active [id number] Social History Date Type Detail Facility Unknown if ever smoked [facility] Other Sex Assigned At [facility] Other Start: 09-29-2021 End: 07-02-2023 Tobacco smoking status Ex-smoker (finding) General Surgery Luis Enrique Tobacco smoking status Never General Surgery [employer] Start: 07-23-2018 Tobacco use and exposure Smokeless tobacco non-user [facility] Start: 10-25-2020 Alcohol intake Ex-drinker (finding) [facility] Start: 1950 Sex Assigned At Not [facility] file [facility] Start: 1950 Sex Assigned At Male F [facility] Medical Equipment Procedure Code Equipment [...] Facility 01-17-2022 Functional status Patient at Baseline [facility] Work Phone: 09-29-2021 Functional Status N/A General Saha ranjeet Dudley Mental Status Date Assessment Result Facility 01-17-2022 Cognitive function Cognitive Sta tus Patient at Baseline [facility] Work Phone: Clinical Notes 01-03-2021 to 05-07-2023 Note Date & Type Note Facility 05-07-2023 Note [place] [facility] Consul t Note Reason for visit: Complete heart block on event monitor, HFrEF 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%, atrial tachycardia 05/07/23 Patient is s/p BiV ICD. he feels much better and believes that he is gone from 4/0 to 7/10 with TRIM SETTER. patient has got good device threshold. he [...] was recently admitted to [facility] for NSTEMI. Had inpatient stress test and heart cath. Denies SOB but still having chest pain and has taken nitroglycerin a few times for relief. Had CT chest last week s/p discharge. Cardiac catheterization revealed patent bypass grafts and worsening bois forte vessel disease. Medications were adjusted. I had [...] 75 mg ta (more content not included)... [facility] 04-30-2023 Evaluation note Encounter Date Diagnosis Assessment Notes Apr, Chronic HFrEF (heart failure with reduced ejection fraction) (ICD-10 - I50.22) [facility] Other 01-30-2024 NotePatient here for follow up echo. He is doing very well, as chest pain and palpitations have subsided. Taking bumex prn now and hasn't been swelling much. Denies SOB and lightheadedness. Review of Systems Musculoskeletal: Positive for arthritis, back pain, joint pain and myalgias. All other systems reviewed and are negative.[facility] 04-30-2023 NoteUT Cardiology Consult Note Reason [...] was recently admitted to [facility] for NSTEMI. Had inpatient stress test and heart cath. Denies SOB but still having chest pain and has taken nitroglycerin a few times for relief. Had CT chest last week s/p discharge. Cardiac catheterization revealed patent bypass grafts and worsening bois forte vessel disease. Medications were adjusted. I had [...] artery stenosis Coronary artery disease Diabetes mellitus ([facility]) Hyperlipidemia Hypertension PVD (peripheral vascular disease) ([facility]) Third degree heart block ([facility]) PSH: Past Surgical History: Procedure Laterality Date [...] route. insulin detemir (Levemi (more content not included)...[facility]12-18-2023 NotePatient here for 2 week follow up per Dr. Bishop. Metoprolol was increased to 100mg to decrease atrial tachycardia. Still gets random chest pain and palpitations. Lightheadedness has been better and has resolved. Denies SOB. Review of Systems Cardiovascular: Positive for chest pain and palpitations. Musculoskeletal: Positive for arthritis, back pain, joint pain and myalgias. All other systems reviewed and are negative.[facility] 03-18-2023 NoteUT Cardiology Consult Note Reason [...] was recently admitted to [facility] for NSTEMI. Had inpatient stress test and heart cath. Denies SOB but still having chest pain and has taken nitroglycerin a few times for relief. Had CT chest last week s/p discharge. Cardiac catheterization revealed patent bypass grafts and worsening bois forte vessel disease. Medications were adjusted. I had [...] morning and at bedtim (more content not included)...[facility]12-12-2023 Evaluation note* Encounter Date Diagnosis Assessment [...] PAP-Jardiance was denied, pt given information on [facility] diabetes discount program instructed to apply order [...] hypertension material was printed on diony. 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 Mar, BMI 27.0-27.9,adult (ICD-10 - Z68.27) Eating healthy: tips to make it easier material was printed [facility] Other 12-07-20[facility] Chief Complaint: Patient here for follow up. Carotid US was done yesterday at [facility]. Says his HR has been elevated lately, around 119. Had his device interrogated a few days ago. Still has to take nitroglycerin at times for chest pain. HPI: Lani Lizama is a 72 y.o. male being seen in post hospital follow up Hospital course: And admitted to the hospital on 01/25 as a direct transfer from [facility], With worsening chest pain for the last [...] Patient to be discharge home today [facility] and to return coming for upgrade to [...] scheduling conflicts with EP lab Accompanied by Joe Cardiology ROS: Review of Systems Cardiovascular: Positive for chest pain and palpitations. Musculoskeletal: Positive for arthritis, back pain, joint pain and myalgias. Neurological: Positive for light-headedness. All other systems reviewed and are negative. Past Medical History He has a past medical history of Carotid artery stenosis, Coronary artery disease, Diabetes mellitus (CMS/HCC), Hyperlipidemia, Hypertension, PVD (peripheral vascular disease) (CMS/HCC), and Third degree heart block (CMS/[facility]). Surgical History He has a past [...] Disp: 180 tablet, Rfl: (more content not included)...[facility]11-21-2023 NotePatient seen for wound check s/p [...] 4-6 weeks. 5. No driving for 1 month.[facility]11-14-2023 NoteBiV- ICD UPGRADE & RV LEAD EXTRACTION PROCEDURE NOTE DATE OF PROCEDURE: 02/12/2023 PERFORMING PHYSICIAN: Dr. Kevin Arteaag ASSISTANT STORE MANAGER: Dr Jamie Dupree CONSENT: Patient LOCATION: EP Lab PROCEDURE PERFORMED: 1. Implantation of Biventricular ICD ([employer]). 2. Explantation of previously implanted pacemaker generator ([employer]). 3. RV pacing lead extraction. 4. [...] catheterization revealed patent bypass grafts and worsening bois forte vessel disease. Event monitor revealed presence of [...] proceeded to place an LV lead. The [place] sheath was advanced, and EZ steer was used to cannulate the CS. There was difficulty in cannulating the CS. So I used an inner cannula and wire technique and this was still challenging. I then removed the Johana system and used a [employer] CS sheath over a 9F short sheath. [...] stable. COMPLICATIONS: None. IM (more content not included)...[facility]11-14-2023 NotePatient: Lani Lizama Procedure Information Date/Time: 02/12/23 1100 Procedure: Biventricular ICD upgrade - Upgrade PPM to Bi-V- possibly to AICD Location: [facility] / [facility] (Cath) Providers: Kevin Arteaga MD Clinical information reviewed: Allergies Meds Physical Exam Airway Mallampati: III Cardiovascular - normal exam Dental Pulmonary - normal exam Abdominal - normal exam Anesthesia Plan ASA 3 other (Conscious sedation) Anesthetic plan and risks discussed with patient. Use of blood products discussed with patient who consented to blood products. Plan discussed with attending. [facility] Evaluation [facility]* Encounter Date Diagnosis Assessment Notes Treatment Notes Treatment Clinical Notes Jan, Chronic HFrEF (heart failure with reduced ejection fraction) (ICD-10 - I50.22) [facility] Other 11-03-2023 NoteUT Cardiology Consult Note Reason [...] was recently admitted to [facility] for NSTEMI. Had inpatient stress test and heart cath. Denies SOB but still having chest pain and has taken nitroglycerin a few times for relief. Had CT chest last week s/p discharge. Cardiac catheterization revealed patent bypass grafts and worsening bois forte vessel disease. Medications were adjusted. I had [...] tablet Take 1 tablet (more content not included)...[facility]10-30-2023 NoteOccupational Therapy Occupational Therapy Evaluation Patient Name: Lani Lizama : 1950 Today's Date: 01/28/2023 Time In: 1404 Time Out: 1444 Lani Lizama is a 72 y.o. male with Hx CAD s/p 4v CABG and multiple past stents to VG to OM branch. Last LHC 01/20 at [facility] found patent bypass grafts. , Chronic HFrEF,Carotid artery stenosis, PVD, HLD, Dm2, CKD III, COPD, BPH, anxiety, PVD: DISTAL AORTIC STENOSIS s/p RESISTANCE BRAZER/STENT 11/2016. Hme meds: ASA, Plavix, Coreg, Jardiance, Imdur 30, Lisinopril 2.5, Lovasatatin 40mg, protonix. Pt and son do not recall any other statins or reaction to statins. 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 [employer]) Prior IADLs IADL History Homemaking Responsibilities: Yes [...] taking off regular lo (more content not included)...[facility]10-30-2023 NoteHospital Medicine Discharge Summary Final Discharge Diagnosis: NSTEMI (non-ST elevated myocardial infarction) (CMS/HCC) Non-ischemic cardiomyopathy with EF 10% Admission Diagnosis: NSTEMI (non-ST elevated myocardial infarction) (CMS/HCC) [I21.4] Hospital course: And admitted to the hospital on 01/25 as a direct transfer from [facility], With worsening chest pain for the last [...] to be discharge home today with holding Darryl and to return coming for upgrade to BiV/ICD Dear Dr. Cherie MD, Lani is advised to follow up with you within 1-2 weeks. Follow-up with: Cardiology Scheduled appointments: Future Appointments Date Time Provider Department Center 02/01/2023 9:15 AM Laila Duarte NP [facility] 03/07/2023 9:00 AM Pinky Bishop MD [facility] Your medication list START taking these medications [...] Medications These medications were sent to [facility] - [place], [place] - [address] [place] [address] [place] [address] [facility] [place] [address], [facility] [address] dapagliflozin propanediol 10 mg isosorbide mononitrate ER [...] 10*3/uL 141* 163 Chemistry: (more content not included)...[facility] Arteaga is planning upgrade to BI-V ICD on as outptUnCommunity Memorial Hospital10-30-2023 NoteUTP CARDIOLOGY INPATIENT PROGRESS NOTE Reason [...] chloride, 50 mL/hr, Last Rate: Stopped (01/25/23 190) sodium chloride, 50 mL/hr, Last Rate: 50 mL/hr (01/26/23 042) PRN medications: acetaminophen, ALPRAZolam, glucose OR dextrose [...] MENJIVAR graft. There is (more content not included)...[facility]10-29-2023 NoteHospital Medicine Daily Progress Note - 01/27/2023 12:00 PM; Room: 314/3141-01 Admission: 01/25/2023 12:05 PM; Length of stay: 2 days THE HOSPITALIST TEAM PREFERS TO USE Supersolid FOR COMMUNICATION 7AM-7PM. IF I DO NOT RESPOND WITHIN 15 MINUTES, PLEASE PAGE ME/CALL THROUGH THE CLINICAL PHARMACY TECHNICIAN. FROM 7PM-7AM, PLEASE PAGE [phone](COVR) Code Status: Full Code Discharge Destination: home [...] Principal Problem: NSTEMI (non-ST elevated myocardial infarction) ([facility]) Assessment and Plan NSTEMI coronary artery [...] for: PREALBUMIN, TSH, T3FREE, FREET4, CORTISOL, FEV1, XQN2GKS, DLCO, RVSP, HDL, LDL No results found for: [id number], IRON, TIBC, C3, C4, HARISH, CANCA, ASO, PSA, CEA, CA125, CA199, AFP, CA153 Imaging Cardiac catheterization PROCEDURE PHYSICIAN: Petar Foreman MD . Indications: Lani Lizama is a 72 y.o. male with prior complex cardiac history including bypass surgery and multiple stenting procedures in the past. Last cardiac catheterization in December 2021 at an outside institution showed patent bypass grafts. (more content not included)... [facility]10-29-2023 NoteUTP CARDIOLOGY INPATIENT PROGRESS NOTE Reason [...] Value Ventricular Rate 91 Atrial Rate 91 CA Interval 162 QRS DURATION 180 QT Interval 416 QTC CALCULATION(BAZETT) 511 P [place] 52 R-[place] -41 T Wave [place] 109 Impression Atrial-sensed ventricular-paced rhythm Abnormal ECG [...] Due to suboptimal i (more content not included)...[facility]10-28-2023 NoteHospital Medicine Daily Progress Note - 01/26/2023 12:37 PM; Room: [address] [place] [address] Admission: 01/25/2023 12:05 PM; Length of stay: 1 days THE HOSPITALIST TEAM PREFERS TO USE Supersolid FOR COMMUNICATION 7AM-7PM. IF I DO NOT RESPOND WITHIN 15 MINUTES, PLEASE PAGE ME/CALL THROUGH THE CLINICAL PHARMACY TECHNICIAN. FROM 7PM-7AM, PLEASE PAGE [phone](COVR) Code Status: Full Code Discharge Destination: home [...] Principal Problem: NSTEMI (non-ST elevated myocardial infarction) ([facility]) Assessment and Plan NSTEMI coronary artery [...] 50 mL/hr, Last Rate: 50 mL/hr (01/26/23 0217) Pertinent Investigations Hematology: Results from last 7 [...] 103 CO2 mmol/L 22 27 BUN mg/dL * 28* CREATININE mg/dL 1.77* 1.83* GLUCOSE mg/dL [...] for: PREALBUMIN, TSH, T3FREE, FREET4, CORTISOL, FEV1, IYG3NKN, DLCO, RVSP, HDL, LDL No results found for: [id number], IRON, TIBC, C3, C4, HARISH, CANCA, ASO, PSA, CEA, CA125, CA199, AFP, CA153 Imaging Cardiac catheterization PROCEDURE PHYSICIAN: Petar Foreman MD . Indications: Lani Lizama is a 72 y.o. male with prior complex cardiac history including bypass surgery and multiple stenting procedures in the past. Last cardiac catheterization in December 2021 at an outside institution showed patent bypass grafts. He presented to the [facility] with symptoms of worsening chest pain over the past 2 months. He was admitted and had rising cardiac troponin. He was referred (more content not included)...[facility]10-28-2023 NoteAdult Nutrition Assessment: Name: Lani Lizama Date: 1950 Date of Visit: 01/26/23 Admission Dx: NSTEMI (non-ST elevated myocardial infarction) (CMS/HCC) [I21.4] Reason for assessment: high risk (HF) Information obtained from: patient, medical record, and nursing Past Medical History: Diagnosis Date Carotid artery stenosis Coronary artery disease Diabetes mellitus ([facility]) Hyperlipidemia Hypertension PVD (peripheral vascular disease) ([facility]) Third degree heart block ([facility]) Current Medications: ALPRAZolam, 0.5 mg, oral, [...] Dietary Orders (From admission, onward) Start Ordered 01/25/231636 Regular Diet Diet effective now Question: Room [...] compliance w/ MNT Contact the dietitian via [employer] chat 8A-4P Saturday through Saturday or call extension [phone]. For weekends & holidays, the dietitian can be reached via pager [phone] from 9A-3P. Unable to respond to [employer] messages on Saturday & s.[facility]10-28-2023 Note Attestation signed by Marry Avendano [...] Teaching Physician's Revisions: none Marry Avendano MD [place] Cardiology Subjective Underwent heart cath yesterday. No [...] to eliquis on discharge Mickie Plaza MD Technical Associate Pgy4 [facility]10-27-2023 NotePatient: Lani Lizama Procedure Information Date/Time: 01/25/23 1900 Procedures: Coronary angiography Coronary bypass graft study Location: [facility] / [facility] (Cath) Providers: Petar Foreman [...] products. Plan discussed with attending. Additional Equipment RequestsThe [facility] Hospital10-27-2023 Note Hospital Medicine History and Physical 01/25/2023 10:53 AM THE HOSPITALIST TEAM PREFERS TO USE [employer] CHAT FOR COMMUNICATION 7AM-7PM. IF I DO NOT RESPOND WITHIN 15 MINUTES, PLEASE PAGE ME/CALL THROUGH THE CLINICAL PHARMACY TECHNICIAN. FROM 7PM-7AM, PLEASE PAGE [phone](COVR) Chief Complaint No chief complaint on file. History of Present Illness Lani Lizama is an 72 y.o. male who came from [facility] with NSTEMI and troponin of 7000. Patient has a history of CABG and 7 stents. For the last few weeks he has had intermittent chest pain that NTG does relieve. He did have a syncopal episode 3 weeks [address] He saw Dr. Bishop on 01/17 and his lisinopril was decreased. Yesterday he had severe chest pain and went to [place] [facility]. Patient was admitted to [place] and initial troponin was negative but then [...] edema associated with type 1 diabetes mellitus ([facility]/HCC) 10/12/2022 Gastroesophageal reflux disease 03/02/2022 Increased immunoglobulin 03/02/2022 Irritable bowel syndrome 03/02/2022 Mixed hyperlipidemia 03/02/2022 Nausea 03/02/2022 Overweight with body mass index (BMI) 25.0-29.9 03/02/2022 Right lower quadrant abdominal pain 03/02/2022 Spondylosis of lumbar spine 03/02/2022 Stage 3 chronic kidney disease ([facility]) 03/02/2022 Stenosis of abdominal aorta 03/02/2022 History of coronary artery bypass surgery 11/16/2019 Monoclonal gammopathy 07/28/2018 Type 2 diabetes mellitus without complication ([facility]) 06/03/2012 Coronary atherosclerosis 09/19/2011 Type 1 diabetes mellitus ([facility]) 09/19/2011 Essential hypertension 09/19/2011 AV block, 3rd degree ([facility]) 03/21/2022 Assessment and Plan NSTEMI - transfer from [place] - will continue heparin drip - cardiology has been consulted and plan to proceed with cardiac catherization today Syncope - patient did have his PM interrogated in [place] Acute renal failure on CKD 3b - in review of chart it looks like his Cr is 1.5 - 1.9 - 2.23 today at [place] - will gently hydrate 0.9NS @ 50 ml/hr Coronary atherosclerosis - CATH 09/2018 bypass grafts patent; mild ISR CATH 12/2021. 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 s/p RESISTANCE BRAZER/STENT 11/2016 Essential hypertension - on norvas Hyperlipidemia [...] during this hospital stay (more content not included)...[facility]10-19-2023 [facility] Note Chief Complaint: [...] (CMS/HCC), Hyperlipidemia, Hypertension, PVD (peripheral vascular disease) (CMS/HCC), [...] in the morning., Disp: , Rfl: HYDROcodone-acetaminophen ([place]) 5-325 mg tablet, TAKE 1 TABLET BY [...] 2+ bilaterally. No rash/sk (more content not included)...[facility] 01-07-2023 Evaluation note* Encounter Date Diagnosis [...] Continue statins. Monitor LFTs and lipid profile. [facility] Other 10-06-2023 Evaluation note* Encounter Date Diagnosis Assessment Notes Treatment Notes Treatment Clinical Notes Dec, Ground glass opacity present on imaging of lung (ICD-10 - R91.8) CT: RUL, RML - 12/2022Dec, Pulmonary nodule (ICD-10 - R91.1) CT: 7mm RML nodule - 12/2022 [facility] Other 10-03-2023 Evaluation note* Encounter Date Diagnosis Assessment Notes Treatment Notes Treatment Clinical Notes Dec, Stage 3b chronic kidney disease (ICD-10 - N18.32) [facility] Other 10-02-2023 Evaluation note* Encounter Date Diagnosis [...] risk for cerebrovascular and cardiovascular disease. Dec, senior care current use of insulin (ICD-10 - Z79.4) [...] be contributing - must discuss w/ Cardiology [facility] Other 07-11-2023 NotePatient here for 3 mo [...] light-headedness. All other systems reviewed and are negative.[facility] 10-09-2022 NoteCardiology Clinic Note Subjective Lani [...] was recently admitted to [facility] for NSTEMI. Had inpatient stress test and heart cath. Denies SOB but still having chest pain and has taken nitroglycerin a few times for relief. Had CT chest last week s/p discharge. Cardiac catheterization revealed patent bypass grafts and worsening bois forte vessel disease. Medications were adjusted. I had [...] CMP. Update 05/02/2022 Was admitted to [facility] in December 2021 for what appears to be a non-ST elevation myocardial infarction. Cardiac catheterization revealed patent bypass grafts and worsening bois forte vessel disease. Medications were adjusted. He states that he has had no chest pain for the past week. He described what sounded like typical angina with exertion. No orthopnea, no paroxysmal external dyspnea, no lower extremity edema. No claudication. He was admitted to [facility] in March for third-degree heart block [...] in the morning., Disp: , Rfl: HYDROcodone-acetaminophen ([place]) 5-325 mg tablet, TAKE 1 TABLET BY MOUTH (more content not included)...[facility]07-03-2023 Evaluation note* Encounter Date Diagnosis Assessment Notes Treatment Notes Treatment Clinical Notes Sep, ASHD (arteriosclerotic heart disease) (ICD-10 - I25.10) [facility] Other 06-21-2023 Evaluation note* Encounter Date Diagnosis Assessment Notes Treatment Notes Treatment Clinical Notes Aug, ASHD (arteriosclerotic heart disease) (ICD-10 - I25.10) [facility] Other 06-02-2023 Evaluation note* Encounter Date Diagnosis [...] inserts to prevent callus formation.Fall precautions. Aug, senior care (current) use of insulin (ICD-10 - Z79.4) [facility] Other 05-11-2023 Evaluation note* Encounter Date Diagnosis Assessment Notes Treatment Notes Treatment Clinical Notes July, Ground glass opacity present on imaging of lung (ICD-10 - R91.8) CT: RML,RUL infiltrate - 12/2021, CT: RML,RUL improved - 03/2022 CT: RML, RUL, GGO improved - 07/2022 [facility] Other 04-25-2023 NotePatient here for 4 week [...] light-headedness. All other systems reviewed and are negative.[facility] 07-24-2022 NoteCardiology Clinic Note Subjective Lani [...] was recently admitted to [facility] for NSTEMI. Had inpatient stress test and heart cath. Denies SOB but still having chest pain and has taken nitroglycerin a few times for relief. Had CT chest last week s/p discharge. Cardiac catheterization revealed patent bypass grafts and worsening bois forte vessel disease. Medications were adjusted. I had [...] CMP. Update 05/02/2022 Was admitted to [facility] in December 2021 for what appears to be a non-ST elevation myocardial infarction. Cardiac catheterization revealed patent bypass grafts and worsening bois forte vessel disease. Medications were adjusted. He states that he has had no chest pain for the past week. He described what sounded like typical angina with exertion. No orthopnea, no paroxysmal external dyspnea, no lower extremity edema. No claudication. He was admitted to [facility] in March for third-degree heart block [...] mg 24 hr tablet, (more content not included)...[facility]04-03-2023 Evaluation note* Encounter Date Diagnosis Assessment [...] D and PTH. Advised low phosphorus diet. [facility] Other 03-30-2023 Evaluation note* Encounter Date Diagnosis [...] are reviewed at the office visit. May, termite helper (current) use of insulin (ICD-10 - Z79.4) [...] (ICD-10 - Z12.5) Yearly PSA and ABDELRAHMAN [facility] Other 03-28-2023 Evaluation note* Encounter Date Diagnosis [...] 2. Blood glucose levels stable. According to [employer] cgm download 06/13/2022- 3: Average glucose 190. [...] hypertension material was printed on diony. May, termite helper current use of insulin (ICD-10 - Z79.4) May, Hyperlipidemia (ICD-10 - E78.5) High cholesterol material was printed 05/2022 ldl 69- on statin. May, BMI 27.0-27.9,adult (ICD-10 - Z68.27) Eating healthy: tips to make it easier material was printed [facility] Other 03-27-2023 NoteCardiology Clinic Note Subjective Lani [...] was recently admitted to [facility] for NSTEMI. Had inpatient stress test and heart cath. Denies SOB but still having chest pain and has taken nitroglycerin a few times for relief. Had CT chest last week s/p discharge. Cardiac catheterization revealed patent bypass grafts and worsening bois forte vessel disease. Medications were adjusted. I had [...] CMP. Update 05/02/2022 Was admitted to [facility] in December 2021 for what appears to be a non-ST elevation myocardial infarction. Cardiac catheterization revealed patent bypass grafts and worsening bois forte vessel disease. Medications were adjusted. He states that he has had no chest pain for the past week. He described what sounded like typical angina with exertion. No orthopnea, no paroxysmal external dyspnea, no lower extremity edema. No claudication. He was admitted to [facility] in March for third-degree heart block [...] capsule, Take 1 capsu (more content not included)...[facility]03-27-2023 NotePatient here c/o chest pressure with [...] light-headedness. All other systems reviewed and are negative.[facility] 05-26-2022 Evaluation note* Encounter Date Diagnosis Assessment Notes Treatment Notes Treatment Clinical Notes May, Abnormality of lung on CXR (ICD-10 - R91.8) [facility] Other [id number] Evaluation note* Encounter Date Diagnosis Assessment Notes [...] 2. Blood glucose levels stable. According to [employer] cgm download 03/07/2022-03/20/20 22: Average glucose 144. Above 250-0%, >180- 15%, 70-180-85%, <70-0%, <54-0%. CV 24.3%. Reviewed download with pt, no incidence of hypoglcyemia noted. Glucose rise between 12-6pm. D/t current shortage of ozempic, recommend pt reduce dose to 0.5mg once weekly until shipment recieved from [facility], then increase to 1mg once weekly. Reviewed [...] hypertension material was printed on diony. Mar, termite helper current use of insulin (ICD-10 - Z79.4) Mar, Hyperlipidemia (ICD-10 - E78.5) High cholesterol material was printed 06/2021 ldl 48- on statin. Mar, BMI 26.0-26.9,adult (ICD-10 - Z68.26) Eating healthy: tips to make it easier material was printed 9 pound weight loss from last visit, continue with weight loss efforts [facility] Other 11-10-2022 Evaluation note* Encounter Date Diagnosis Assessment Notes Treatment Notes Treatment Clinical Notes Jan, Diabetes mellitus with chronic kidney disease (ICD-10 - E11.22) [facility] Other 10-19-2022 Discharge summary Author Gagan Shahid [facility] January 17, 2022 3:02pm Note Date/Time January 17, 2022 3 :02pm [facility] [address] [place], [place] [id number] Discharge Summary Signed Patient: Lani Lizama MR#: [id number] : 1950 Acct:[id number] Age/Sex: 71 / M Adm Date: 2 Loc: 3T Room: 0W5423-[address]: Gagan Shahid DO Copies to: [...] thought this to be indigestion/GERD 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 Cardiac catheterization was undergone on 01/16/2022 showing [...] levels as before. DISCHARGE INSTRUCTIONS FOR CARDIAC SLUDGE MILL OPERATOR PHONE NUMBER OF YOUR PHYSICIAN: [phone] PROCEDURE: Heart Cath The following instructions have [...] cold, numb, blue or white, call the manager mba immediately. 4. ACTIVITY: You are advised to [...] bottle, follow the instructions on the bottle. [facility] is not responsible for incorrect prescription information [...] <Electronically signed by Gagan Shahid DO> 01/17/22 04[facility] Work Phone: 1(374) 285-416810-19-2022 Progress note Author Luis Alfredo Borges [facility] January 17, 2022 11:47am Note Date/Time January 17, 2022 1 1:47am [facility] [address] [place], [place] [id number] Cardiology Progress Note Signed Patient: Lani Lizama MR#: [id number] : 1950 Acct:[id number] Age/Sex: 71 / M Adm Date: 2 Loc: 3T Room: [address] [place] [address] Type: ADM IN Attending Dr: Gagan Shahid [...] is also notable worsening of the patient's bois forte occlusive coronaryheart disease particularly in the microcirculation [...] daily 3. Patient does have a primary manager mba near his home in [place]. We willschedule him 1 follow-up visit in [facility] for left wrist check and also for counseling and reinforcement/referral to phase 2 monitored cardiac rehabilitation which the patient desires to perform in [place]. 4. Instructed the patient that he can [...] signed by Luis Alfredo Borges MD> 01/17/22 1145 [facility] Work Phone: 1(344) 511-451510-18-2022 Progress note Author Gagan Shahid [facility] January 16, 2022 4:09pm Note Date/Time January 16, 2022 4 :09pm [facility] [address] [place] [address] Hospitalist Progress Note Signed Patient: Lani Lizama MR#: [id number] : 1950 Acct:[id number] Age/Sex: 71 / M Adm Date: 2 Loc: Room: [address] [place] [address] Type: ADM IN Attending Dr: Gagan Shahid [...] Dose Route Start Last Admin Trade Name Brooke PRN Reason Stop Dose Admin Acetaminophen 650 [...] <Electronically signed by Gagan Shahid DO> 01/16/22 32[facility] Work Phone: 1(310) 935-729010-18-2022 [facility] Consult note Author Luis Alfredo Borges [facility] January 16, 2022 10:24am Note Date/Time January 16, 2022 1 0:24am [facility] [address] [place] [address] Cardiology Consult Note Signed Patient: Lani Lizama MR#: [id number] : 1950 Acct:[id number] Age/Sex: 71 / M Adm Date: 2 Loc: 3T Room: [address] [place] [address] Type: ADM IN Attending Dr: Gagan Shahid [...] well as history of PCI done here [facility] per Dr. Saldaña in May 2020 who [...] he activated EMS and was taken to [facility] emergency department. There the patient was treated [...] Lymph # (Auto) 1.0 1.6 (1.00-4.8) x10E3/uL [place] # (Auto) 0.4 0.8 (0.0-0.8) x10E3/uL Eos [...] nonspecific abnormality, ST segment, and/or T wave RI, pacemaker, normal Normal tracing: no change compared [...] by Luis Alfredo Borges MD> 01/16/22 [facility] Work Phone: 1(410) 910-358910-17-2022 History and physical note Author Gagan Frings [facility] January 15, 2022 6:56pm Note Date/Time January 15, 2022 6 :02pm [facility] [address] [place] [address] Hospitalist H&P Signed Patient: Lani Lizama MR#: [id number] : 1950 Acct:[id number] Age/Sex: 71 / M Adm Date: 2 Loc: Room: [address] [place] [address] Type: ADM IN Attending Dr: Gagan Shahid [...] need for cardiovascular evaluation he was [facility] for further management and cardiology consultation. Upon [...] H 98 Nasal Cannula 2 01/15/22 15:23 10/17/22 15:23 01/15/22 15:23 01/15/22 15:23 01/15/22 15:23 [...] % (Auto) 13.8 % (.) 01/15/22 15:00 [place]entress % (Auto) 6.1 % (.) 01/15/22 15:00 Eos % (Auto) 0.9 % (.) 01/15/22 15:00 Baso % (Auto) 0.5 % (.) 01/15/22 15:00 Neut # (Auto) 5.6 x10E3/uL (1.8-7.7) 01/15/22 15:00 Lymph # (Auto) 1.0 x10E3/uL (1.00-4.8) 01/15/22 15:00 [place]entress # (Auto) 0.4 x10E3/uL (0.0-0.8) 01/15/22 15:00 [...] <Electronically signed by Gagan Shahid DO> 01/15/22 [address] [facility] Work Phone: 1([phone]) 831-267409-19-2022 Evaluation note* Encounter Date Diagnosis Assessment Notes [...] Blood glucose levels above improved. According to [employer] cgm download 12/05/2021- 2: Average glucose 119. [...] hypertension material was printed on diony. Nov, senior care current use of insulin (ICD-10 - Z79.4) Nov, Hyperlipidemia (ICD-10 - E78.5) High cholesterol material was printed 06/2021 ldl 48- on statin. Nov, BMI 27.0-27.9,adult (ICD-10 - Z68.27) Eating healthy: tips to make it easier material was printed 22 pound weight loss from last visit, continue with weight loss efforts [facility] Other [id number] Miscellaneous Notes* Telephone Encounter - Vee Day - 10/20/2021 9:42 AM EDT New CBC order. 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 BMI 28.0-28.9,adult BPH associated with nocturia Cholelithiasis Controlled diabetes mellitus with diabetic polyneuropathy, with long-term current use of insulin Diabetic retinopathy Elevated serum immunoglobulin free light chains GERD (gastroesophageal reflux disease) IBS (irritable bowel syndrome) Lumbar spondylosis MGUS (monoclonal gammopathy of unknown significance) Mixed hyperlipidemia Nausea Obesi (more content not included)...[facility]: Result Comment: Electronically Signed By: FRANKIE LEMUS, Gagan Bal\Date and Time Signed: 10/17/21 12:19 [id number] Evaluation note* Encounter Date Diagnosis Assessment Notes [...] Blood glucose levels above improved. According to [employer] cgm download 07/04/2021-07/17/2021 : Average glucose 146. [...] hypertension material was printed on diony. Jun, termite helper current use of insulin (ICD-10 - Z79.4) Jun, BMI 30.0-30.9,adult (ICD-10 - Z68.30) Eating healthy: tips to make it easier material was printed see above Jun, Bradycardia (ICD-10 - R00.1) asymptomatic- f/u with cardiology has upcoming apt. If symptomatic i.e. light headed notify sooner [facility] Other 03-21-2022 Evaluation note* Encounter Date Diagnosis Assessment Notes Treatment Notes Treatment Clinical Notes May, Gastro-esophageal reflux disease with esophagitis, without bleeding (ICD-10 - K21.00) [facility] Other 03-08-2022 Evaluation note* Encounter Date Diagnosis [...] His MBD parameters are within the goal. [facility] Other 02-21-2022 Evaluation note* Encounter Date Diagnosis Assessment Notes Treatment Notes Treatment Clinical Notes May, Diabetes mellitus with chronic kidney disease (ICD-10 - E11.22) [facility] Other 01-10-2022 Evaluation note* Encounter Date Diagnosis Assessment Notes Treatment Notes Treatment Clinical Notes Apr, Type 2 diabetes mellitus with hyperglycemia (ICD-10 - E11.65) [facility] Other 01-10-2022 Evaluation note* Encounter Date Diagnosis [...] Blood glucose levels above improved. According to [employer] cgm download 03/28/2021-04/10/19 22: Average glucose 167. [...] was also given rx assist paperwork for [facility] if he does not qualify for BI/jardiance. Ozempic will increase to 1mg once weekly. Apr, Hyperlipidemia (ICD-10 - E78.5) High cholesterol material was printed 07/2020 ldl 64 trig 207- on statin. Apr, HTN (hypertension) (ICD-10 - I10) About hypertension material was printed on diony. Apr, senior care current use of insulin (ICD-10 - Z79.4) Apr, BMI 30.0-30.9,adult (ICD-10 - Z68.30) Eating healthy: tips to make it easier material was printed see above [facility] Other 11-16-2021 Evaluation note* Encounter Date Diagnosis [...] His MBD parameters are within the goal. [facility] Other 10-05-2021 Evaluation note* Encounter Date Diagnosis [...] above target with increased variability. According to [employer] cgm download 12/07/2020-01/03/2021: Average glucose 135. Above [...] hypertension material was printed on diony. 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 Notified manager mba Dr. Velazquez. Pt has apt on Saturday next week. [facility] Other Evaluation + Plan note No data available for this section General Surgery Luis Enrique Evaluation noteNo InformationNort [place] Other Evaluation note* Diagnosis Monoclonal gammopathy- Primary Monoclonal paraproteinemia documented [facility] Diagnosis Onset Date Resolution Status Non-ST elevation myocardial infarction (NSTEMI), [facility] Work Phone: Evaluation noteNo assessment information available [facility] Work Phone: Evaluation note* Diagnosis Onset Date Resolution Status BMI 26.0-26.9,adult acute Dietary counseling and surveillance acute DM2 (diabetes mellitus, type 2) acute HLD (hyperlipidemia) acute HTN (hypertension) acute [facility] Work Phone: Evaluation note* Diagnosis Onset Date Resolution Status BMI 26.0-26.9,adult acute Dietary counseling and surveillance acute DM2 (diabetes mellitus, type 2) acute HLD (hyperlipidemia) acute HTN (hypertension) acute Chronic HFrEF (heart failure with reduced ejection fraction) acute CKD (chronic kidney disease) stage 3, GFR 30-59 ml/min acute HLD (hyperlipidemia) acute [id number] acute Secondary hyperparathyroidism acute Type 2 diabetes 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 acute [facility] Work Phone: Evaluation note* Diagnosis Onset Date Resolution Status Dietary counseling and surveillance acute HTN (hypertension) acute Chronic HFrEF (heart failure with reduced ejection fraction) acute CKD (chronic kidney disease) stage 3, GFR 30-59 ml/min acute [id number] acute Secondary hyperparathyroidism acute Type 2 diabetes 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 acute Chronic HFrEF (heart failure with reduced ejection fraction) acute Chronic kidney disease acute HTN (hypertension) acute Hypercholesterolemia acute Ischemic cardiomyopathy acut e Pulmonary nodule acute Type 2 diabetes mellitus with hyperglycemia acute Medicare annual wellness visit, subsequent noneactive Screening PSA (prostate specific antigen) noneactive [facility] Work Phone: History general Narrative - Reported* [...] 11-25-16 Hospitalization History HEART STENT PLACED 03-20 [facility] Other Hisidup general Narrative - ReportedNortAutopilot (formerly [facility]) Other Hiscnfd general Narrative - Reported* Type Description Date [...] 11-25-16 Hospitalization History HEART STENT PLACED 03-20 [facility] Other Hisbvui general Narrative - Reported* Type Description Date [...] 11-25-16 Hospitalization History HEART STENT PLACED 03-20 [facility] Other [employer] general Narrative - Reported* Type Description Date [...] 11-25-16 Hospitalization History HEART STENT PLACED 03-20 [facility] Other [facility] general Narrative - Reported* Type Description Date [...] STENT PLACED 03-20 Hospitalization History SEE ABOVE [facility] Other History general Narrative - ReportedNoAutopilot (formerly [facility]) Other history general Narrative - Reported* Type [...] STENT PLACED 03-20 Hospitalization History SEE ABOVE [facility] Other Hisnciy general Narrative - Reported* Type Description Date [...] STENT PLACED 03-20 Hospitalization History SEE ABOVE [facility] Other History general Narrative - Reported* Type [...] STENT PLACED 03-20 Hospitalization History SEE ABOVE [facility] Other History general Narrative - Reported* Type [...] History GGO and Pulmonary nodules Medical History RI 01/21 Medical History Defibrilator 02/21 Surgical History [...] 03-20 Hospitalization History SEE ABOVE Hospitalization History RI 01/21 [facility] Other Hospital Discharge instructions No data available for this section General Surgery [employer] Hospital Discharge instructions Additional Instructions Monitor glucose levels as before. 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 4. ACTIVITY: You are advised to [...] bottle, follow the instructions on the bottle. [facility] is not responsible for incorrect prescription information provided by the patient during their visit. Do not stop your medications without consulting your health care provider. Please take the list with you to your next doctor's appointment. [facility] Work Phone: Progress note No data available for this section General Surgery [place] Summary Purpose Family History Relationship Condition Age [...] mellitus, type 2) HLD (hyperlipidemia) HTN (hypertension) Chief Complaint 4 Month Follow Up 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 RENAL 6 month follow up Reason for Visit BMI 26.0-26.9,adult Dietary counseling and surveillance DM2 (diabetes mellitus, type 2) HLD (hyperlipidemia) HTN (hypertension) Chronic HFrEF (heart failure with reduced ejection fraction) CKD (chronic kidney disease) stage 3, GFR 30-59 ml/min HLD (hyperlipidemia) [id number] Secondary hyperparathyroidism Type 2 diabetes mellitus with diabetic chronic kidney disease 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 6 month follow up MEDICARE WELLNESS Reason for Visit Dietary counseling a nd surveillance HTN (hypertension) Chronic HFrEF (heart failure with reduced ejection fraction) CKD (chronic kidney disease) stage 3, GFR 30-59 ml/min [id number] Secondary hyperparathyroidism Type 2 diabetes mellitus with diabetic chronic kidney disease Chronic HFrEF (heart failure with reduced ejection fraction) Chronic kidney disease HTN (hypertension) Hypercholesterolemia Ischemic cardiomyopathy Pulmonary nodule Type 2 diabetes mellitus with hyperglycemia Medicare annual wellness visit, subsequent Screening PSA (prostate specific antigen) Additional Source Comments (unrecognized sect ion and content) No Status Records FoundNo Status Records FoundNo Status Records FoundNo Status Records FoundNo Status Records FoundNo Status Records Found INFORMATION SOURCE (unrecogn ized section and content) DATE CREATED AUTHOR 11/29/2018 [facility] DATE CREATED AUTHOR AUTHOR'S ORGANIZ ATION 10/20/2021 [facility] DATE CREATED AUTHOR AUTHOR'S ORGANIZ ATION 10/25/2021 [facility] DATE CREATED AUTHOR AUTHOR'S ORGANIZ ATION 08/13/2022 [facility] DATE CREATED AUTHOR AUTHOR'S ORGANIZ ATION 05/08/2023 [facility] DATE CREATED AUTHOR AUTHOR'S ORGANIZ ATION 05/16/2023 [facility] REASON FOR VISIT (unrecogniz ed section and content) Reason Comments Lab Orders Care Team (unrecognized sect ion and content) Team Status: Active Member Role Status Dates Harley Crespo DO Primary Care Provider Active Team Status: Active Member Role [...] June 18, 2023 End: June 18, 2023 Team Status: Active Member Role Status Dates Harley Crespo DO Primary Care Provider Active Start: June 24, 2023 Kingsley Good MD Attending Provider Active Start : June 24, 2023 Team Status: Inactive Member Role Status Dates Harley Crespo DO Primary Care Provider Active Start: July 02, 2023 End: July 02, 2023 Kingsley Good MD Attending Provider Active Start : July 02, 2023 End: July 02, 2023 Team Status: Inactive Member Role Status Anna Cresop DO Primary Care Provide r, Attending Provider Active Start: August 12, 2023 End: August 12, 2023 Spray Machine Loader Relationship Specialty Start Date End Date Harley Crespo DO [address] [place] [address] PCP - General Internal Medicine 07/18/18 Team Status: Inactive Member Role Status Anna Crespo DO Primary Care Provider Active Gagan Shahid DO Admit Provider, Attending Provider Active Team Status: Active Member Role Status Anna Crespo DO Primary Care Provider Active Ryan Garrett APRN ICE GRINDER-C Active Valerie Gallegos , PA-C Active Arlen Kwong APRN Attending Provider Active Team Status: Active Member Role Status Anna Crespo DO Primary Care Provider Active Team Status: Inactive Member Role Status Dates Arlen Kwong APRN Attending Provider Active Start: March 12, 2023 End: March 12, 2023 Team Status: Inactive Member Role Status Dates Harley Crespo DO Primary Care Provider Active Start: March 12, 2023 End: March 12, 2023 Ryan Garrett APRN ICE GRINDER-C Active Sta rt: March 12, 2023 End: March 12, 2023 Valerie Gallegos , PA-C Active St art: March 12, 2023 [...] Status: Inactive Member Role Status Dates Harley Cherie DO Primary Care Provider Active Start: June 18, 2023 End: June 18, 2023 Arlen Kwong APRN Attending Provider Active Start: June 18, 2023 End: June 18, 2023 Team Status: Active Member Role Status Dates Harley Crespo DO Primary Care Provider Active Start: June 24, 2023 Kingsley Good MD Attending Provider Active Start : June 24, 2023 Team Status: Inactive Member Role Status Dates Harley Cherie , Primary Care Provider Active Start: July 02, 2023 End: July 02, 2023 Kingsley Good MD Attending Provider Active Start : July 02, 2023 End: July 02, 2023 Team Status: Inactive Member Role Status Dates Harley Crespo DO Primary Care Provide r, Attending Provider Active Start: August 12, 2023 End: August 12, 2023 Source Comments (unrecognize d section and content) In the event this informatio n is protected by the Federal Confidentiality of Alcohol and Drug Abuse Patient Records regulations: The Federal rules restrict any use of the information to criminally investigate or prosecute any alcohol or drug abuse patient.[facility] Goals (unrecognized section and content) Goals [...] BE BASED ON THE PRIMARY CLINICAL RECORDS. [facility]. provides no warranty or guarantee of the accuracy or completeness of information in this document.
[2023-08-27 11:47] LABS: Prostate Specific Antigen Scrn 1.37 ng/mL (<=4.00)
== END 2023-08-27 09:51 | disposition home or self-care (01) ==
LOC: LAB 09:54
PROVIDERS: PCP Internal Medicine; Visit Provider Internal Medicine
DX: Z12.5 Encounter for screening for malignant neoplasm of prostate (principal)
CPT/HCPCS: 36415; G0103

== ENCOUNTER 2023-09-26 07:07 | Emergency (ER) | payer MEDICARE, OTHER, SELFPAY ==
[2023-09-26] VITALS (89 sets, daily range): BP systolic 85–178; BP diastolic 65–126; PULSE 73–101; TEMP 36.6; O2SAT 92–98; BMI 27.6
--- OUTSIDE RECORDS SUMMARY | 2023-09-26 07:16 | XMS_ITS ---
Patient Summarization (C-CDA 2.1 CCD) Created on: September 26, 2023 LANI LIZAMA : 1950 Sex: Male Author Organization Sample organization Care Team Providers Care Mold Stacker Name Role Phone VIJAY, EHAB A Admitting Unavailable VIJAY, EHAB A Attending Unavailable HARLEY CRESPO Referring Unavailable HARLEY CRESPO Primary Care Unavailable ELTAADARSH, NETOAB A Surgeon Unavailable DC Procedure Practitioner Unavailab le ZABRINATAADARSH, PINKY A Admitting Unavailable VIJAY, PINKY A Attending Unavailable HARLEY CRESPO Referring Unavailable HARLEY CRESPO Primary Care Unavailable Arlen Kwong Unavailable [place] Unavailable Shannon Escobar Unavailable HARLEY CRESPO Primary Care Physician [phone] Harley Crespo DO Primary Care Provider DO Harley Crespo Primary Care Provider [phone] JULY Kwong Attending Provider [phone] DO Gagan Shahid Admit Provider [phone] DO Gagan Shahid Attending Provider Harley Crespo Unavailable VIJAY, DR LOWE Consulting Unavailable CHERIE, DR CARVALHO Primary Care Unavailable ELTAHAWJo, DR LOWE Attending Unavailable ELTAHAWJo, DR LOWE Admitting Unavailable VLAD, DR PARUL Sanchez Procedure Practitioner Unavaila ble ALVA ., DR OBDULIO Cisneros Attending Unavailable ALVA ., DR OBDULIO Cisneros Admitting Unavailable VLAD, DR PARUL Sanchez Consulting Unavailable CHERIE, DR CARVALHO Primary Care Unavailable NIDA ., DR OBDULIO Cisneros Consulting Unavailable JASPAL ACEVES Consulting Unavailable CHERIE, DR CARVALHO Admitting Unavailable CHERIE, DR CARVALHO Attending Unavailable CHERIE, DR CARVALHO Primary Care Unavailable CHERIE, DR CARVALHO Consulting Unavailable ZIEBFLAVIO, DR HIGINIO Sanchez Consulting Unavailable MASHA, DR HIGINIO Sanchez Consulting Unavailable CHERIE, DR CARVALHO Primary Care Unavailable KEVIN ARTEAGA Attending Unavailable KEVIN ARTEAGA Admitting Unavailable JENNI, KEVIN Consulting Unavailable ELTAHAWY, DR LOWE Consulting Unavailable BALL, DR CARVALHO Primary Care Unavailable ELTAHAWY, DR LOWE Attending Unavailable ELTAHAWY, DR LOWE Admitting Unavailable BALL, DR CARVALHO Primary Care Unavailable CHU, DR PARUL Sanchez Admitting Unavailable CHU, DR PAURL Sanchez Attending Unavailable CHU, DR PARUL Sanchez Consulting Unavailable ZIEBER, DR HIGINIO Sanchez Consulting Unavailable HAY ., DR LING Consulting Unavailable SAID, WAYNE Consulting Unavailable LATISHA, KINGSLEY Consulting Unavailable BALL, DR CARVALHO Primary Care Unavailable LATISHA, KINGSLEY Attending Unavailable ALTISHA, KINGSLEY Admitting Unavailable NILL ., DR FARAH [...] DR LOWE Attending Unavailable ELTAHAWY, DR LOWE Admmayela Unavailable ELTAHAWY, DR LOWE Consulting Unavailable BALL, DR CARVALHO Admitting Unavailable BALL, DR CARVALHO Attending Unavailable BALL, DR CARVAHLO Primary Care Unavailable BALL, DR CARVALHO Consulting Unavailable BALL, DR CARVALHO Primary Care Unavailable PAY ., DR GORDILLO Admitting Unavailable PAY ., DR GORDILLO Attending Unavailable PAY ., DR GORDILLO Consulting Unavailable GAGAN CAREY Consulting Unavailable Denita Chairez Unavailable DO Harley Crespo Primary Care Provider JULY Kwong Attending Provider [phone] Varghese, Arlen Monique Attending Unavailable Varghese, Arlen Monique Admitting Unavailable Harley Crespo Primary Care Unavailable KEVIN ARTEAGA Referring Unavailable PEPE, TIN Referring Unavailable ELTAHAWY, PINKY Attending Unavailable JENNI, KEVIN Referring Unavailable WITHEREDEISY TOMAS Attending Unavailable WITHERELL, DEISY Referring Unavailable BARAZI, LAILA Attending Unavailable ELTAHAWY, PINKY Attending Unavailable JENNI, KEVIN Admitting Unavailable JENNI, KEVIN Attending Unavailable HOYDELTA Referring Unavailable PEDRO, ABIEL Admitting Unavailable LAURA, SP Attending Unavailable ELTAHAWY, PINKY Attending Unavailable JENNI, KEVIN Referring Unavailable JENNI, KEVIN Referring Unavailable WITHPARUL, DEISY Attending Unavailable PEPE, TIN Referring Unavailable JENNI, KEVIN Referring Unavailable CRISTOPHER, EMEKA Referring Unavailable CRISTOPHER, EMEKA Referring Unavailable CRISTOPHER, EMEKA Referring Unavailable CRISTOPHER, EMEKA Referring Unavailable CRISTOPHER, EMEKA Referring Unavailable BARAZI, LAILA Attending Unavailable JENNI, KEVIN Attending Unavailable JENNI, KEVIN Referring Unavailable JENNI, KEVIN Referring Unavailable BARAZI, LAILA Attending Unavailable CRISTOPHER, EMEKA Referring Unavailable Allergies Allergy Classification Reported Allergen(s) Allergy Type Date of Onset Reaction(s) Facility (1 source) 55094,00; Translations: [Unknown] Propensity to adverse reactions (disorder) 200 9 [facility] Encounters Encounter Date Encounter Type Care Provider Facility Start: 09-25-2023 ambulatory EMEKA CRISTOPHER [facility] Start: 09-24-2023 ambulatory [facility] Start: 09-19-2023 Encounter for preprocedural cardiovascular examination KEVIN [facility] Start: 09-19-2023 ambulatory [facility] Start: 09-09-2023 End: 09-09-2023 ambulatory EHAB [facility] Start: 08-12-2023 End: 08-12-2023 ambulatory [facility] Work Phone: Start: 08-12-2023 End: 08-12-2023 Patient encounter procedure [facility] Work Phone: Start: 07-02-2023 End: 07-02-2023 ambulatory [facility] Work Phone: Start: 07-02-2023 End: 07-02-2023 Patient encounter procedure [facility] Work Phone: Start: 06-24-2023 Non-patient / Non-visit [facility] Work Phone: Start: 06-18-2023 End: 06-18-2023 ambulatory [facility] Work Phone: Start: 06-18-2023 End: 06-18-2023 Patient encounter procedure [facility] Work Phone: Start: 06-13-2023 Non-patient / Non-visit [facility] Work Phone: Start: 05-07-2023 End: 05-07-2023 ambulatory [facility] Start: 05-03-2023 End: 05-03-2023 Patient encounter procedure Harley Crespo Work Phone: [facility]- Start: 04-30-2023 Telephone encounter [place] [facility] Start: 04-30-2023 End: 04-30-2023 ambulatory LAILA DUARTE [place] [employer] Other Start: 04-23-2023 End: 04-23-2023 ambulatory Tona Desireeus Other [place] [employer] Other Start: 04-23-2023 Telephone encounter Tonnakul Kwong [facility] Start: 03-18-2023 End: 03-18-2023 ambulatory [facility] Start: 03-12-2023 (DM) Diabetes Arlen Kwong [facility] Start: 03-12-2023 End: 03-13-2023 ambulatory DO Harley Crespo Work Phone: [employer] Other Start: 03-12-2023 End: 03-12-2023 Discharged Recurring DO Harley Crespo Work Phone: [facility] Work Phone: Start: 03-12-2023 End: 03-12-2023 Patient encounter procedure DO Harley Crespo Work Phone: [facility] Work Phone: Start: 03-07-2023 End: 03-07-2023 ambulatory [facility] Start: 03-05-2023 End: 03-05-2023 ambulatory [facility] Start: 02-19-2023 End: 02-19-2023 ambulatory [facility] Start: 02-12-2023 Telephone encounter Harley HERRMANN [facility] Start: 02-12-2023 End: 02-12-2023 ambulatory [facility] [employer] Other Start: 02-07-2023 End: 02-07-2023 ambulatory Harley Crespo Other [employer] Other Start: 02-07-2023 Telephone encounter Harley HERRMANN [facility] Start: 02-06-2023 End: 02-06-2023 ambulatory Arlen Kwong Other [employer] Other Start: 02-06-2023 Telephone encounter Arlen Shane [facility] Start: 02-01-2023 End: 02-01-2023 ambulatory LAILA BARAZI [facility] Start: 01-29-2023 End: 01-29-2023 ambulatory Harley Crespo Other [employer] Other Start: 01-29-2023 Telephone encounter Harley Crespo [facility] Start: 01-25-2023 End: 01-28-2023 Evaluation and management of inpatient DELTA VARGAS [facility] Start: 01-17-2023 Telephone encounter Kahlilnakul Varghese [facility] Start: 01-17-2023 End: 01-17-2023 ambulatory EHAB [facility] [employer] Other Start: 01-07-2023 End: 01-07-2023 ambulatory Harley Crespo Other [employer] Other Start: 01-07-2023 Office outpatient vi sit 25 minutes Kingsley Latisha [facility] Start: 01-07-2023 Telephone encounter Harley Crespo [facility] Start: 01-04-2023 End: 01-04-2023 ambulatory Kingsley Latisha Other [employer] Other Start: 01-04-2023 Telephone encounter Kingsley Latisha [facility] Start: 01-01-2023 End: 01-01-2023 ambulatory Kingsley Latisha Other [employer] Other Start: 01-01-2023 Telephone encounter Kingsley Latisha [facility] Start: 12-31-2022 End: 12-31-2022 ambulatory Harley Crespo Other [employer] Other Start: 12-31-2022 Office outpatient vi sit 25 minutes Harley Crespo [facility] Start: 12-31-2022 Telephone encounter Harley Crespo [facility] Start: 12-13-2022 End: 12-13-2022 ambulatory Denita Chairez Other [employer] Other Start: 12-13-2022 Nursing evaluation o f patient and report Denita Chairez [facility] Start: 11-23-2022 End: 11-23-2022 ambulatory Tondra Mapus Other [employer] Other Start: 11-23-2022 Telephone encounter Tondra Mapus [facility] Start: 10-12-2022 End: 10-12-2022 ambulatory Tondra Mapus Other [employer] Other Start: 10-12-2022 Telephone encounter Tondra Mapus [facility] Start: 10-09-2022 Telephone encounter Harley HERRMANN [facility] Start: 10-09-2022 End: 10-09-2022 [facility] [employer] Other Start: 10-01-2022 End: 10-01-2022 ambulatory Harley Crespo Other [employer] Other Start: 10-01-2022 Telephone encounter Harley HERRMANN [facility] Start: 09-27-2022 End: 09-27-2022 ambulatory Kingsley Latisha Other [employer] Other Start: 09-27-2022 Telephone encounter Kingsley Latisha [facility] Start: 09-26-2022 End: 09-26-2022 ambulatory Harley Crespo Other [employer] Other Start: 09-26-2022 Telephone encounter Harley HERRMANN [facility] Start: 09-19-2022 End: 09-19-2022 ambulatory Kingsley Latisha Other [employer] Other Start: 09-19-2022 Telephone encounter Kingsley Latisha [facility] Start: 09-12-2022 End: 09-12-2022 ambulatory Harley Crespo Other [employer] Other Start: 09-12-2022 Telephone encounter Harley HERRMANN [facility] Start: 09-03-2022 End: 09-03-2022 ambulatory Harley Crespo Other [employer] Other Start: 09-03-2022 Telephone encounter Harley HERRMANN [facility] Start: 08-31-2022 End: 08-31-2022 ambulatory Harley Crespo Other [employer] Other Start: 08-31-2022 Office outpatient vi sit 25 minutes Harley Crespo [facility] Start: 08-10-2022 End: 08-10-2022 ambulatory Harley Crespo Other [employer] Other Start: 08-10-2022 Telephone encounter Harley HERRMANN [facility] Start: 08-09-2022 End: 08-10-[address] [facility] [employer] Other Start: 08-09-2022 Telephone encounter Kingsley Latisha [facility] Start: 07-02-2022 End: 07-02-2022 ambulatory Kingsley Latisha Other [employer] Other Start: 07-02-2022 Office outpatient vi sit 25 minutes Kingsley Latisha [facility] Start: 06-28-2022 End: 06-28-2022 ambulatory Harley Crespo Other [employer] Other Start: 06-28-2022 Patient encounter procedure Harley Crespo [facility] Start: 06-26-2022 (DM) Diabetes Tondra Mapus [facility] Start: 06-26-2022 End: 06-26-2022 ambulatory Tondra Mapus Other [employer] Other Start: 06-25-2022 End: 06-26-2022 ambulatory KINGSLEY LATISHA Facility: Start: 06-18-2022 End: 06-19-2022 ambulatory TONDRA MAPUS Facility:[facility] Start: 06-05-2022 End: 06-06-[address] HARLEY CRESPO Facility:[facility]1 Start: 05-26-2022 End: 05-26-2022 ambulatory Harley Crespo Other [employer] Other Start: 05-26-2022 Telephone encounter [facility]o [facility] Start: 05-25-2022 End: 05-25-2022 ambulatory Tondra Mapus Other [employer] Other Start: 05-25-2022 Telephone encounter Tondra Mapus [facility] Start: 05-03-2022 End: 05-04-[address] PINKY BISHOP Facility:[facility]1 Start: 04-18-2022 End: 04-19-[address] PINKY BISHOP Facility:[facility]1 Start: 03-22-2022 End: 03-23-[address] HIGINIO FLANAGAN Facility:[facility]1 Start: 03-20-2022 (DM) Diabetes Tondra Mapus [facility] Start: 03-20-2022 End: 03-20-2022 ambulatory Tondra Mapus Other [employer] Other Start: 03-12-2022 End: 03-13-2022 Evaluation and management of inpatient DR PARUL CHU Facility:[facility]1 Start: 03-09-2022 End: 03-10-[address] SHANNON LANDIS Facility:[facility] Start: 03-02-2022 End: 03-03-[address] HARLEY CRESPO Facility:[facility]1 Start: 02-19-2022 End: 02-19-2022 ambulatory Tondra Mapus Other [employer] Other Start: 02-19-2022 Telephone encounter Tondra Mapus [facility] Start: 02-08-2022 End: 02-08-2022 ambulatory Tondra Mapus Other [employer] Other Start: 02-08-2022 Telephone encounter Tondra Mapus [facility] Start: 01-15-2022 End: 01-17-2022 Evaluation and management of inpatient DO Harley Crespo Work Phone: [facility] [place] [facility] Start: 01-15-2022 End: 01-15-[address] HARLEY CRESPO Facility:H1 Start: 12-18-2021 Registered Recurring DO Zamudio in [place] Work Phone: [facility] Start: 12-18-2021 (DM) Diabetes Tondra Mapus [facility] Start: 12-18-2021 End: 12-18-2021 ambulatory Tondra Mapus Other [employer] Other Start: 12-08-2021 End: 12-09-[address] HARLEY CRESPO Facility:H1 Start: 11-30-2021 End: 12-01-2021 ambulatory KINGSLEY GOLDENR Facility:H1 Start: 11-24-2021 End: 11-25-[address] HARLEY CRESPO Facility:[facility]1 Start: 11-16-2021 End: 11-16-2021 ambulatory Tondra Mapus Other [employer] Other Start: 11-16-2021 Telephone encounter Tondra Mapus [facility] Start: 2021 End: 2021 ambulatory Tondra Mapus Other [employer] Other Start: 2021 Telephone encounter Tondra Mapus [facility] Start: 10-31-2021 End: 10-31-2021 ambulatory Tondra Mapus Other [employer] Other Start: 10-31-2021 Telephone encounter Tondra Mapus [facility] Start: 10-27-2021 End: 10-27-2021 [...] 07-24-2021 End: 07-24-2021 ambulatory Tondra Mapus Other [employer] Other Start: 07-24-2021 Telephone encounter Tondra Mapus [facility] Start: 07-17-2021 (DM) Diabetes Tondra Mapus [facility] Start: 07-17-2021 End: 07-17-2021 ambulatory Tondra Mapus Other [employer] Other Start: 06-19-2021 End: 06-19-2021 ambulatory Shannon Escobar Other [employer] Other Start: 06-19-2021 Telephone encounter Shannon Escobar [facility] Start: 06-06-2021 End: 06-06-2021 ambulatory Kingsley Latisha Other [employer] Other Start: 06-06-2021 Office outpatient vi sit 25 minutes Kingsley Latisha [facility] Start: 05-22-2021 End: 05-22-2021 ambulatory Tondra Mapus Other [employer] Other Start: 05-22-2021 Telephone encounter Tondra Mapus [facility] Start: 05-16-2021 End: 05-16-2021 ambulatory Tondra Mapus Other [employer] Other Start: 05-16-2021 Telephone encounter Tondra Mapus [facility] Start: 04-10-2021 (DM) Diabetes Tondra Mapus [facility] Start: 04-10-2021 End: 04-10-2021 ambulatory Tondra Mapus Other [employer] Other Start: 04-10-2021 Telephone encounter Tondra Mapus [facility] Start: 02-14-2021 End: 02-14-2021 ambulatory Kingsley Latisha Other [employer] Other Start: 02-14-2021 Patient encounter procedure Kingsley Latisha [facility] Start: 02-14-2021 Telephone encounter Tondra Mapus [facility] Start: 01-03-2021 (DM) Diabetes Tondra Mapus [facility] Start: 10-14-2018 End: 10-15-2018 Patient encounter procedure EHAB A [facility] Facility:[facility] Start: 02-24-2018 End: 02-25-2018 Evaluation and management of inpatient AB A [facility] Facility:[facility] Medical Equipment Procedure Code Equipment Code Equipment [...] Goals Date Patient Goal Desired Activity /State Immunizations Immunization Date Immunization Notes Care Provider Poli patel 12-13-2022 influenza, high dose seasonal, preservative-free Denita Chairez Other [employer] Other 12-13-2022 influenza virus vaccine, unspecified formulation DO Harley Crespo Work Phone: [facility] 12-15-2021 influenza virus vaccine, unspecified formulation DO Harley Crespo Work Phone: [facility] 12-15-2021 influenza, high dose seasonal, preservative-free Harley Crespo Other [facility] [employer] Other 02-21-2021 COVID-19 mRNA, Comirnaty (Pfizer) DO Harley Crespo Work Phone: [facility] 06-21-2020 COVID-19 Vaccine Pfi zer - Documentation Purposes Only Tona Varghese Other [facility] 05-30-2020 COVID-19 Vaccine Pfi zer - Documentation Purposes Only Arlen Kwong Other [facility] 01-17-2018 pneumococcal polysaccharide vaccine, 23 valent Abdon Walker MD Work Phone: [facility] 01-17-2018 Seasonal trivalent influenza vaccine, adjuvanted, preservative free Abdon Walker MD Work Phone: [facility] 01-16-2017 influenza, high dose seasonal, preservative-free Abdon Walker MD Work Phone: [facility] 11-30-2016 influenza, injectabl e, quadrivalent, preservative free Abdon Walker MD Work Phone: [facility] 11-14-2016 pneumococcal conjuga te vaccine, 13 valent Abdon Walker MD Work Phone: [facility] 04-02-2016 pneumococcal polysaccharide vaccine, 23 valent Tondra Kwong Other [facility] 01-23-2012 influenza, seasonal, injectable Abdon Walker MD Work Phone: [facility] 12-13-2010 influenza, seasonal, injectable Abdon Walker MD Work Phone: [facility] 01-27-2009 novel [id number], preservative-free, injectable Abdon Walker MD Work Phone: [facility] 01-19-2008 influenza virus vaccine, whole virus Abdon Walker MD Work Phone: [facility] Medications Current Medications Medication Drug Class(es) Dates [...] Active 0.5 MG PO Three times daily 90 August 06, 2023 2:14pm Comment on above: [...] tablet (20 sources) Nitrate Vasodilator Start: End: 4 take 60 mg by mouth twice daily [...] 2023 12:00am take 1 tablet by bhavik every twenty-four hours Rosuvastatin Calcium 40 MG [...] PO Twice daily with meals 60 January 17, 2022 12:00am June 18, 2023 [...] 2023 11:58am take 1 tablet by bhavik every twenty-four hours Farxiga 10 MG 1 tablet Orally Once a day Not-Taking/PRN docusate sodium 100 mg oral capsule (20 sources) Start: 06-18-2023 End: 08-12-2023 take 100 mg by mouth once daily Docusate Sodium Discontinued 100 MG PO Daily June 18, 2023 12:00am August 12, 2023 8:42am take 1 capsule by mo [facility] every twenty-four hours Colace 100 MG 1 [...] (3 mL) Insulin Pen (5 sources) Start: End: 4 inject 5 [IU] by subcutaneous [...] 12:00am July 10, 2021 9:59am triamcinolone acetonide 0.50440 mg/mg topical ointment (1 source) Corticosteroid triamcinolone [...] 15, 2022 12:00am June 18, 2023 11:08am Payers Date Payer Category Payer Unknown MMO MMO MEDICARE SUPPLEMENT [id number] 2019-Present [phone] [address] [place] [address] Indemnity [id number] 2017 Self-pay [id number] 2017 Unknown [id number] 2017 Unknown [id number] 2016 Medicare MEDICARE MEDICAR E A AND B [id number] 2016-Present [phone] [facility] [address] [place] [address] Medicare [id number] 1959 Medicare [id number] 1959 Unknown [id number] 1950 Unknown [id number] 2.16.840.1.009973.3.579.2.647 1950 Unknown [id number] 2.16.840.1.455428.3.579.2.647 1950 Unknown [id number] 2.16.840.1.490042.3.579.2.593 1950 Unknown [id number] 2.16.840.1.842737.3.579.2.593 1950 Unknown [id number] 2.16.840.1.831427.3.579.2.593 1950 Unknown [id number] 2.16.840.1.576149.3.579.2.593 1950 Unknown [id number] 2.16.840.1.925342.3.579.2.593 1950 Unknown [id number] 2.16.840.1.569743.3.579.2.593 1951 Unknown [id number] 2.16.840.1.516261.3.579.2.593 1951 Unknown [id number] 2.16.840.1.979906.3.579.2.593 1951 Unknown [id number] 2.16.840.1.579159.3.579.2.593 1951 Unknown [id number] 2.16.840.1.807057.3.579.2.593 1951 Unknown [id number] 2.16.840.1.570475.3.579.2.593 1951 Unknown [id number] 2.16.840.1.059569.3.579.2.593 1951 Unknown [id number] 2.16.840.1.956615.3.579.2.593 1951 Unknown [id number] 2.16.840.1.130236.3.579.2.593 1951 Unknown [id number] 2.16.840.1.875240.3.579.2.593 1951 Unknown [id number] 2.16.840.1.732071.3.579.2.593 1951 Unknown [id number] 2.16.840.1.114326.3.579.2.593 1951 Unknown [id number] 2.16.840.1.703143.3.579.2.593 Unknown [id number] 2.16.840.1.144657.3.579.2.531 Unknown HCAP/HFA/FAP Active [id number] Plan of Treatment Date Care Activity Detail Author Start: 10-26-2023 DIABETES SCREEN DIABETES SCREEN [facility] Start: 01-17-2022 [facility] Start: 01-17-2022 Radionuclide myocard ial perfusion stress study NM rachel perf SPECT rest & str [facility] Start: 01-17-2022 Referral to cardiac rehabilitation program [facility] Start: 01-16-2022 Hospital admission [facility] Start: 01-15-2022 Hospital admission [facility] Start: 11-30-2021 Influenza vaccination INFLUENZA (#1) [facility] Start: 10-24-2021 End: 12-24-2021 CBC W Auto Differential panel - Blood CBC + DIFF Lab Routine Monoclonal gammopathy Expected: 10/24/2021, Expires: 12/24/2021 [facility] Work Phone: Comment on above: Expected: 10/24/2021 , Expires: 12/24/2021 Start: 04-25-2021 Adult depression screening assessment DEPRESSION SCREENING [facility] Start: 04-01-2021 ADVANCE DIRECTIVE DISCUSSION ADVANCE DIRECTIVE DISCUSSION [facility] Start: 11-21-2020 COVID-19 VACCINE (3 - Booster for Pfizer series) COVID-19 VACCINE (3 - Booster for Pfizer series) [facility] Start: 11-07-2001 SHINGRIX VACCINE (1 of 2) SHINGRIX VACCINE (1 of 2) [facility] Start: 11-07-1996 COLOGUARD (FIT-DNA) COLOGUARD (FIT-D NA) [facility] Start: 11-07-1996 Colonoscopy COLONOSCOPY [facility] Start: 11-07-1996 COLORECTAL CANCER SCREENING COLORECTAL CANCER SCREENING [facility] Start: 11-07-[address] COLONOGRAPHY [facility] Start: 11-07-1996 FECAL OCCULT BLOOD FECAL OCCULT BLOO D [facility] Start: 11-07-1996 SIGMOIDOSCOPY SIGMOIDOSCOPY [facility] Start: 11-07-1986 LIPID SCREEN LIPID SCREEN [facility] Start: 11-07-1970 Urine microalbumin profile DTAP,TDAP,TD (1 - Tdap) [facility] Start: 11-07-1969 HEPATITIS C SCREENING HEPATITIS C SC APURVA [facility] Start: 1950 ABDOMINAL AORTIC ANEURYSM SCREENING ABDOMINAL AORTIC ANEURYSM SCREENING [facility] Comprehensive metabo lic 2000 panel - Serum or Plasma [facility] Patient Education Low blood suga r in people with diabetes Diabetes and diet [facility] Work Phone: Patient referral [facility] Work Phone: Renal function 1999 panel - Serum or Plasma [facility] Problems Active Problems Problem Classification Problem Date Documented Date Episodic/Chronic Acute myocardial infarction (18 sources) Myocardial infarction; Translations: [Non-ST elevation (NSTEMI) myocardial infarction] Onset: 2 07-12-2020 Chronic Administrative/social admission (20 sources) Financial problem; Translations: [Other problems related to housing and economic circumstances] Onset: 1 Resolved: 2 Episodic Anxiety disorders (1 source) Generalized anxiety disorder; Translations: [Generalized anxiety disorder] 08-06-2023 Chronic Chronic kidney disease (20 sources) Chronic kidney [...] artery disease; Translations: [Atherosclerotic heart disease of [place] coronary artery without angina pectoris] Onset: 2 [...] sources) Long-term current use of insulin; Translations: [detention (current) use of insulin] Episodic Other aftercare (11 sources) detention (current) use of insulin; Translations: [oysterman current use of insulin Z79.4] Onset: 1 [...] immunoglobulin; Translations: [Patient encounter status] 09-07-2021 Episodic Jolene-; endo-; and myocarditis; cardiomyopathy (except that caused by tuberculosis or sexually transmitted disease) (2 sources) Other cardiomyopathies; Translations: [Other cardiomyopathies] Onset: 4 Chronic Peripheral and visceral atherosclerosis (1 source) Intermittent [...] W/O CHOLECYST W/O OBST] Onset: 09-04-2021 Episodic Cardiac dysrhythmias (4 sources) Bradycardia, unspecified; Translations: [Palpitations] Onset: 01-03-2021 Resolved: 07-17-2021 Episodic Chronic kidney disease (19 sources) Chronic [...] Onset: 09-29-2021 Episodic Other aftercare (1 source) oysterman (current) use of aspirin; Translations: [FCI CURRENT USE OF ASPIRIN] Onset: 04-03-2022 Episodic Other aftercare (1 source) Other termination clerk (current) drug therapy; Translations: [OTH WEB PRODUCTION MANAGER CURRENT DRUG THERAPY] Onset: 04-03-2022 Episodic Other [...] tachycardia; Translations: [Other supraventricular tachycardia] Onset: 03-07-2023 Procedures Date Procedure Procedure Detail Performing Clinician Start: 03-11-2022 Assistance with Respiratory Ventilation, Less than 24 Consecutive Hours, Continuous Positive Airway Pressure DR PINKY BISHOP Start: 01-16-2022 CL LHC & COR Angio w/grafts DO [employer] Work Phone: Start: 01-16-2022 DO [employer] Work Phone: Start: 07-10-2021 Colonoscopy Gagan DAVID [...] MULT COR A GRAFT USING OTH CONTRAST PINKY BISHOP Start: 02-24-2018 FLUOROSCOPY OF MULTIPLE CORONARY ARTERIES USING OTH CONTRAST PINKY BISHOP Start: 04-01-2017 Percutaneous coronary intervention Smith DAVID Comment on above: vein graft Start: 04-01-2016 Aortic stent (physical object) Gagan ROBBINS Start: 04-01-2015 Percutaneous coronary intervention Smith DAVID Comment on above: stent/vein graft Start: 04-01-2012 Percutaneous transluminal coronary angioplasty Gagan MORGANL Start: 04-01-2009 Cardiac catheterization Gagan MORGANL Start: 04-01-2007 Percutaneous transluminal coronary angioplasty Gagan MORGANL Start: 04-01-2004 Cardiac catheterization Gagan MORGANL Start: 04-01-2002 Cardiac catheterization Gagan MORGANL Start: 04-01-1991 Coronary artery bypass graft Gagan MORGAN L Percutaneous coronary intervention Gagan DAVID Comment on above: stent/vein graft Results Test Name Value Interpretation Reference Range Facility Office Visiton 09-09-2023 Follow-up visit [id number] Lani Lizama 1950 M Date Provider Department Center 09/09/2023 Scott-PINKY BISHOP CARD [facility] Family History Problem Relation Age of Onset Heart attack Mother Other Father Other Brother Heart attack Maternal Grandmother Heart attack Maternal Grandfather Family Status - Relation Status Age at Mother Father Brother Maternal Grandmother Maternal Grandfather Level of Service:19186 DC OFFICE/OUTPATIENT ESTABLISHED MOD MDM 30 MIN Normal [facility] Erythrocyte distribution wid th Auto (RBC) [Ratio]on 06-24-2023 Erythrocyte distribution width (RBC) [Ratio] 14.6 % 11.0-15.0 [facility] Estimated glomerular filtrat ion rate (GFR) non- Americanon 06-24-2023 GFR/1.73 sq M.predicted among non-blacks MDRD (S/P/Bld) [Vol rate/Area] 38 mL/min/{1.73_m2} >=60 [facility] Hematocrit Auto (Bld) [Volum e fraction]on 06-24-2023 Hematocrit (Bld) [Volume fraction] 46.2 % 42.0-54.0 [facility] Hemoglobin [Mass/volume] in Bloodon 06-24-2023 Hemoglobin (Bld) [Mass/Vol] 14.5 g/dL 14.0-18.0 [facility] Laboratory - Chemistry and C hemistry - challengeon 06-24-2023 Albumin [Mass/Vol] 4.0 g/dL 3.4-5.0 [facility] Calcium [Mass/Vol] 9.2 mg/dL 8.5-10.1 [facility] Chloride [Moles/Vol] 106 mmol/L 98-107 [facility] CO2 [Moles/Vol] 25.4 mmol/L 21.0-32.0 [facility] Creatinine [Mass/Vol] 1.76 mg/dL 0.70-1.30 [facility] GFR/1.73 sq M.predicted MDRD (S/P/Bld) [Vol rate/Area] 47 mL/min/{1.73_m2} >=60 [facility] Glucose [Mass/Vol] 212 mg/dL 74-106 [facility] Magnesium [Mass/Vol] 2.1 mg/dL 1.8-2.4 [facility] Potassium [Moles/Vol] 4.5 mmol/L 3.5-5.1 [facility] Sodium [Moles/Vol] 142 mmol/L 136-145 [facility] Urate [Mass/Vol] 4.3 mg/dL 3.5-7.2 [facility] Urea nitrogen [Mass/Vol] 30.0 mg/dL 7.0-18.0 [facility] Urea nitrogen/Creatinine [Mass ratio] 17.0 mg/mg [facility] Laboratory - Urinalysison Protein (U) [Mass/Vol] 11.5 mg/dL <=11.9 [facility] Leukocytes [#/volume] correc soraya for nucleated erythrocytes in Blood by Automated counon 06-24-2023 WBC corrected for nucl RBC Auto (Bld) [#/Vol] 9.6 10 3/uL 4.0-11.0 [facility] MCH Auto (RBC) [Entitic mass ]on 06-24-2023 MCH (RBC) [Entitic mass] 28.5 pg 25.9-34.0 [facility] MCHC Auto (RBC) [Mass/Vol]on 06-24-2023 MCHC (RBC) [Mass/Vol] 31.4 g/dL 29.9-35.2 [facility] MCV Auto (RBC) [Entitic vol] on 06-24-2023 MCV (RBC) [Entitic vol] 90.8 fL 80.0-94.0 [facility] No Panel Informationon 06-23 25-Hydroxy Vitamin D Total 42.5 ng/mL [facility] Comment on above: <20 ng/mL Vit D defi cient20-<30 ng/mL Vit D mokqlpbbnyby96-802 ng/mL Vit D sufficient>100 ng/mL Potential Toxicity Parathyroid Hormone (Intact) 48 pg/mL 15-65 [facility] Comment on above: Performed at: [facility] [employer] [address] [id number] Director: Kwaku Park PhD, Phone: [phone] Phosphorus Level 3.6 mg/dL 2.6-4.7 [facility] Urine Random Creatinine 60.60 mg/dL 20.00-300. 00 [facility] Platelet mean volume Auto (B ld) [Entitic vol]on 06-24-2023 Platelet mean volume (Bld) [Entitic vol] 10.2 fL 9.5-13.5 [facility] Platelets Auto (Bld) [#/Vol] on 06-24-2023 Platelets (Bld) [#/Vol] 178 10 3/uL 150-450 [facility] RBC Auto (Bld) [#/Vol]on RBC (Bld) [#/Vol] 5.09 10 6/uL 4.70-6.10 [facility] Serum or plasma anion gap de terminationon 06-24-2023 Anion gap [Moles/Vol] 15.1 mmol/L Fi [facility] Urine protein/creatinine rat ioon 06-24-2023 Protein/Creatinine (U) [Ratio] 0.19 [facility] HbA1c HPLC (Bld) [Mass fract ion]on 06-18-2023 HbA1c (Bld) [Mass fraction] 6.1 % [facility] No Panel Informationon 06-17 Bedside Glucose 150 [facility] Cholesterol in LDL Calc [Mas s/Vol]on 06-13-2023 Cholesterol in LDL [Mass/Vol] 29.0 mg/dL [facility] Comment on above: <100 mg/dl [id number] 0-129 mg/dl NEAR OR ABOVE [id number] mg/dl BORDERLINE [id number] mg/dl HIGH>190 mg/dl VERY HIGH Cholesterol in VLDL Calc [Ma ss/Vol]on 06-13-2023 Cholesterol in VLDL [Mass/Vol] 24.8 mg/dL [facility] Laboratory - Chemistry and C hemistry - challengeon 06-13-2023 Cholesterol [Mass/Vol] 87 mg/dL <=200 [facility] Cholesterol in HDL [Mass/Vol] 34 mg/dL 40-60 [facility] Comment on above: > or =60 mg/dl - LOW CARDIOVASCULAR RISK<40 mg/dl - HIGH CARDIOVASCULAR RISK Triglyceride [Mass/Vol] 124 mg/dL <=150 [facility] Serum or plasma total choles terol/high density lipoprotein (HDL) cholesterol mass yulia 06-13-2023 Cholesterol.total/Cho lesterol in HDL [Mass ratio] 2.6 {ratio} [facility] Comment on above: 3.3 - 4.4 LOW RISK4. 4 - 7.1 AVERAGE RISK7.1 - 11.0 MODERATE RISK>11.0 HIGH RISK Office Visiton 05-07-2023 Follow-up visit [id number] Lani Lizama 1950 M Date Provider Department Center 05/07/2023 KEVIN DEMPSEY Family History Problem Relation Age of Onset Heart attack Mother Other Father Other Brother Heart attack Maternal Grandmother Heart attack Maternal Grandfather Family Status - Relation Status Age at Mother Father Brother Maternal Grandmother Maternal Grandfather Level of Service:88203 DC OFFICE/OUTPATIENT ESTABLISHED LOW MDM 20 MIN Normal [facility] Office Visiton 04-30-2023 Follow-up visit [id number] Lani Lizama 1950 M Date Provider Department Center 04/30/2023 LAILA MCBRIDE Family History Problem Relation Age of Onset Heart attack Mother Other Father Other Brother Heart attack Maternal Grandmother Heart attack Maternal Grandfather Family Status - Relation Status Age at Mother Father Brother Maternal Grandmother Maternal Grandfather Level of Service:98954 DC OFFICE/OUTPATIENT ESTABLISHED MOD MDM 30 MIN Normal [facility] Office Visiton 03-18-2023 Follow-up visit [id number] Lani Lizama 1950 M Date Provider Department Center 03/18/2023 LAILA MCBRIDE Family History Problem Relation Age of Onset Heart attack Mother Other Father Other Brother Heart attack Maternal Grandmother Heart attack Maternal Grandfather Family Status - Relation Status Age at Mother Father Brother Maternal Grandmother Maternal Grandfather Level of Service:43932 DC OFFICE/OUTPATIENT ESTABLISHED MOD MDM 30 MIN Normal [facility] A1C HEMOGLOBINon 03-12-2023 HbA1c (Bld) [Mass fraction] 7.1 % [employer] Other Glucose - FINGER STICKon Glucose [Mass/Vol] 151 mg/dL [employer] [facility] [employer] Other HbA1c (Bld) [Mass fraction]o n 03-12-2023 A1C HEMOGLOBIN [facility] Other Office Visiton 03-07-2023 Follow-up visit [id number] Lani Lizama 1950 M Date Provider Department Center 03/07/2023 Scott-PINKY BISHOP Family History Problem Relation Age of Onset Heart attack Mother Other Father Other Brother Heart attack Maternal Grandmother Heart attack Maternal Grandfather Family Status - Relation Status Age at Mother Father Brother Maternal Grandmother Maternal Grandfather Level of Service:13425 DC OFFICE/OUTPATIENT ESTABLISHED MOD MDM 30-39 MIN Normal [facility] Orders Onlyon 02-27-2023 Orders Only [id number] Lani Lizama 1950 Date Provider Department Center 02/27/2023 895-GEOVANNA BASS CARD [facility] Family History Problem Relation Age of Onset Heart attack Mother Other Father Other Brother Heart attack Maternal Grandmother Heart attack Maternal Grandfather Family Status - Relation Status Age at Mother Father Brother Maternal Grandmother Maternal Grandfather [facility] Office Visiton 02-19-2023 Follow-up visit [id number] Lani Lizama 1950 Date Provider Department Center 02/19/2023 [id number] SOARES CARD [facility] Family History Problem Relation Age of Onset Heart attack Mother Other Father Other Brother Heart attack Maternal Grandmother Heart attack Maternal Grandfather Family Status - Relation Status Age at Mother Father Brother Maternal Grandmother Maternal Grandfather Level of Service:38393 DC POSTOP FOLLOW UP VISIT RELATED TO ORIGINAL PX [facility] HPon 02-12-2023 HP ------ -- Attestation [...] and hypertension. He was recently admitted to [facility] for NSTEMI. Had inpatient stress test and heart cath. Denies SOB but still having chest pain and has taken nitroglycerin a few times for relief. Had CT chest last week s/p discharge. Cardiac catheterization revealed patent bypass grafts and worsening [place] vessel disease. Medications were adjusted. I had [...] the morning. rubina (more content not included)... [facility] NURSNOTElisha 02-12-2023 NURSNOTBlayne CHG wipes and iodine nasal swab completed per protocol. [facility] NURSNOTE RN educated pt on d/ c instructions. RN encouraged pt to voice any questions or concerns. Pt verbalizes no questions or concerns at this time. Normal [facility] Orders Onlyon 02-12-2023 Orders Only [id number] Lani Lizama 1950 M Date Provider Department Center 02/12/2023 PORFIRIO GAXIOLA [facility] MI HeartVAS Family History Problem Relation Age of Onset Heart attack Mother Other Father Other Brother Heart attack Maternal Grandmother Heart attack Maternal Grandfather Family Status - Relation Status Age at Mother Father Brother Maternal Grandmother Maternal Grandfather Normal [facility] Follow-Upon 02-01-2023 Follow-Up [id number] Lani Lizama 1950 Provider Department Center 02/01/2023 Janie6-LAILA DUARTE CARD [facility] Family History Problem Relation Age of Onset Heart attack Mother Other Father Other Brother Heart attack Maternal Grandmother Heart attack Maternal Grandfather Family Status - Relation Status Age at Mother Father Brother Maternal Grandmother Maternal Grandfather Level of Service:27153 DC OFFICE/OUTPATIENT ESTABLISHED MOD MDM 30-39 MIN Reason for Visit and Comments: Follow-up [[id number]] Normal [facility] 30on 01-28-2023 30 The patient is Moder ately Stable - Low risk of patient condition declining or worsening The patient's goals for the shift include comfort The clinical goals for the shift include vss, safety Over the shift, the patient continued to make progress toward the following goals. Normal [facility] APTTon 01-28-2023 ACTIVATED PARTIAL THROMBOPLASTIN TIME IN PPP BY COAGULATION ASSAY 125.9 Seconds High 25.0-35.0 [facility] Comment on above: Result Comment: Clin ical significance of the APTT is questionable in the presence of heparin. Performed By: #### L [id number] ####[facility] ([employer])[address] [place] [address] BASIC METABOLIC PANELon 01-01 Anion gap [Moles/Vol] 10 mmol/L Normal 7-20 [facility] Comment on above: Performed By: #### L [id number] ####[facility] (BEAKER)[address] [place] [address] Calcium [Mass/Vol] 9.1 mg/dL Normal 8.6-10.3 [facility] Comment on above: Performed By: #### L [id number] ####[facility] ([facility] [place] [address] Chloride [Moles/Vol] 110 mmol/L High 98-[address] [facility] Comment on above: Performed By: #### L [id number] ####[facility] ([facility] [place] [address] CO2 [Moles/Vol] 24 mmol/L Normal 21-31 [facility] Comment on above: Performed By: #### L [id number] ####[facility] ([facility] [place] [address] Creatinine [Mass/Vol] 1.46 mg/dL High 0.70-1.30 [facility] Comment on above: Performed By: #### L [id number] ####[facility] ([facility] [place] [address] GLOMERULAR FILTRATION RATE ML/MIN/1.73 SQ M.PREDICTED 51.1 mL/min/1.73m*2 Low >60.0 [facility] Comment on above: Result Comment: [facility]???s estimated glomerular filtration rate (eGFR) will [...] of individuals. Performed By: #### L [id number] ####[facility] ([facility] [place] [address] Glucose [Mass/Vol] 133 mg/dL High 70-100 [facility] Comment on above: Performed By: #### L [id number] ####[facility] (BEAKER)[address] [place] [address] Potassium [Moles/Vol] 4.0 mmol/L Normal 3.5-5.1 [facility] Comment on above: Performed By: #### L [id number] ####[facility] (BEAKER)[address] [place] [address] Sodium [Moles/Vol] 140 mmol/L Normal 136-145 [facility] Comment on above: Performed By: #### L [id number] ####[facility] (BEAKER)[address] [place] [address] Urea nitrogen [Mass/Vol] 23 mg/dL Normal 7-25 [facility] Comment on above: Performed By: #### L [id number] ####[facility] (BEAKER)[address] [place] [address] UREA NITROGEN/CREATININE (MASS RATIO) IN SER/PLAS 15.8 Normal [facility] Comment on above: Performed By: #### L [id number] ####[facility] (BEAKER)[address] [place] [address] CBCon 01-28-2023 Erythrocyte distribution width (RBC) [Ratio] 13.2 % Normal 11.5-15.0 [facility] Comment on above: Performed By: #### L [id number] ####[facility] (BEAKER)[address] [place] [address] ERYTHROCYTE MEAN CORPUSCULAR HEMOGLOBIN CONCENTRATION (G/DL) BY AUTOMATED 33.8 g/dL Normal 32.0-35.0 [facility] Comment on above: Performed By: #### L [id number] ####[facility] (BEAKER)[address] [place] [address] Hematocrit (Bld) [Volume fraction] 39.0 % Normal 39.0-55.0 [facility] Comment on above: Performed By: #### L [id number] ####[facility] (BEAKER)[address] [place] [address] Hemoglobin (Bld) [Mass/Vol] 13.2 g/dL Normal 13.0-17.0 [facility] Comment on above: Performed By: #### L [id number] ####[facility] ([facility] [place] [address] MCH (RBC) [Entitic mass] 31.1 pg Normal 27.0-33.0 [facility] Comment on above: Performed By: #### L [id number] ####[facility] ([facility] [place] [address] MCV (RBC) [Entitic vol] 91.8 fL Normal 82.0-98.0 [facility] Comment on above: Performed By: #### L [id number] ####[facility] ([facility] [place] [address] PLATELETS (10*3/UL) IN BLOOD AUTOMATED COUNT 141 10*3/uL Low 150-400 [facility] Comment on above: Performed By: #### L [id number] ####[facility] ([facility] [place] [address] RBC (Bld) [#/Vol] 4.25 10*6/uL Normal 4.20-5.70 [facility] Comment on above: Performed By: #### L [id number] ####[facility] ([facility] [place] [address] WBC (Bld) [#/Vol] 6.40 10*3/uL Normal 4.00-10.60 [facility] Comment on above: Performed By: #### L [id number] ####[facility] ([facility] [place] [address] LIPID PANELon 01-28-2023 CHOL/HDL 3.7 mg/dL Normal [facility] Comment on above: Performed By: #### L [id number] ####[facility] (BEAKER)[address] [place] [address] Cholesterol [Mass/Vol] 111 mg/dL Low 120-200 [facility] Comment on above: Performed By: #### L [id number] ####[facility] ([facility] [facility] [address] Magnesium [Mass/Vol] 172 mg/dL High 40-[address] [facility] Comment on above: Result Comment: TRIG LYCERIDE REFERENCE RANGE: 20 YEARS AND OLDER CARDIOVASCULAR RISK LESS THAN 150 mg/dL LOW RISK 150 TO 199 mg/dL BORDERLINE RISK 200 mg/dL AND GREATER HIGH RISK Performed By: #### L [id number] ####[facility] ([facility] [facility] [address] Magnesium [Mass/Vol] 47 mg/dL Normal 0-[address] [facility] Comment on above: Performed By: #### L [id number] ####[facility] ([facility] [facility] [address] Magnesium [Mass/Vol] 30 mg/dL Normal 23-[address] [facility] Comment on above: Performed By: #### L [id number] ####[facility] ([facility] [facility] [address] NON HDL CHOL. (LDL+VLDL) 81 Normal [facility] Comment on above: Performed By: #### L [id number] ####[facility] ([facility] [facility] [address] TOTAL VLDL-C 34 mg/dL Normal 0-40 [facility] Comment on above: Performed By: #### L [id number] ####[facility] ([facility] [facility] [address] Orders Onlyon 01-28-2023 Orders Only [id number] Lani Lizama 1950 M Date Provider Department Center 01/28/2023 MARGOT PAUL. Family History Problem Relation Age of Onset Heart attack Mother Other Father Other Brother Heart attack Maternal Grandmother Heart attack Maternal Grandfather Family Status - Relation Status Age at Mother Father Brother Maternal Grandmother Maternal Grandfather Normal [facility] POCT GLUCOSE METER UNSOLICIT ED RESULTSon 01-28-2023 Glucose [Mass/Vol] 133 mg/dL High 70-105 [facility] Comment on above: Order Comment: Waive d Testing in the ED is performed under the ED CLIA certificate #[id number]. Result Comment: [email or web address] Performed By: #### L [id number] #### [facility] ([facility]AKER) [address] [place] [address] Glucose [Mass/Vol] 151 mg/dL High 70-105 [facility] Comment on above: Order Comment: Waive d Testing in the ED is performed under the ED CLIA certificate #[id number]. Result Comment: [email or web address] Performed By: #### L [id number] ####[facility] (BEAKER)[address] [place] [address] Glucose [Mass/Vol] 155 mg/dL High 70-105 [facility] Comment on above: Order Comment: Waive d Testing in the ED is performed under the ED CLIA certificate #[id number]. Result Comment: jey [email or web address] Performed By: #### L [id number] #### [facility] (BEAKER) [address] [place] [address] 30on 01-27-2023 30 The patient is Moder [...] to discharge with patient and caregiver Normal [facility] APTTon 01-27-2023 ACTIVATED PARTIAL THROMBOPLASTIN TIME IN PPP BY COAGULATION ASSAY 113.7 Seconds High 25.0-35.0 [facility] Comment on above: Result Comment: Clin ical significance of the APTT is questionable in the presence of heparin. Performed By: #### L [id number] #### [facility] ([facility] [address] [place] [address] BASIC METABOLIC PANELon 10-2 Anion gap [Moles/Vol] 13 mmol/L Normal 7-20 [facility] Comment on above: Performed By: #### L [id number] ####[facility] ([facility] [place] [address] Calcium [Mass/Vol] 9.4 mg/dL Normal 8.6-10.3 [facility] Comment on above: Performed By: #### L [id number] ####[facility] ([facility] [place] [address] Chloride [Moles/Vol] 106 mmol/L Normal 98-[address] [facility] Comment on above: Performed By: #### L [id number] ####[facility] ([facility] [place] [address] CO2 [Moles/Vol] 26 mmol/L Normal 21-31 [facility] Comment on above: Performed By: #### L [id number] ####[facility] ([facility] [place] [address] Creatinine [Mass/Vol] 1.71 mg/dL High 0.70-1.30 [facility] Comment on above: Performed By: #### L [id number] ####[facility] ([facility] [place] [address] GLOMERULAR FILTRATION RATE ML/MIN/1.73 SQ M.PREDICTED 42.3 mL/min/1.73m*2 Low >60.0 [facility] Comment on above: Result Comment: [facility]???s estimated glomerular filtration rate (eGFR) will [...] of individuals. Performed By: #### L [id number] ####[facility] ([facility] [place] [address] Glucose [Mass/Vol] 155 mg/dL High 70-100 [facility] Comment on above: Performed By: #### L [id number] ####[facility] ([facility] [place] [address] Potassium [Moles/Vol] 4.1 mmol/L Normal 3.5-5.1 [facility] Comment on above: Performed By: #### L [id number] ####[facility] ([facility] [place] [address] Sodium [Moles/Vol] 141 mmol/L Normal 136-145 [facility] Comment on above: Performed By: #### L [id number] ####[facility] ([facility] [place] [address] Urea nitrogen [Mass/Vol] 31 mg/dL High 7-25 [facility] Comment on above: Performed By: #### L [id number] ####[facility] ([facility] [place] [address] UREA NITROGEN/CREATININE (MASS RATIO) IN SER/PLAS 18.1 Normal [facility] Comment on above: Performed By: #### L [id number] ####[facility] ([facility] [place] [address] POCT GLUCOSE METER UNSOLICIT ED RESULTSon 01-27-2023 Glucose [Mass/Vol] 145 mg/dL High 70-105 [facility] Comment on above: Order Comment: Waive d Testing in the ED is performed under the ED CLIA certificate #[id number]. Result Comment: [email or web address] Performed By: #### L [id number] #### [facility] ([facility] [address] [place] [address] 30on 01-26-2023 30 The patient is Moder [...] to discharge with patient and caregiver Normal [facility] 30 The patient is Moder ately Stable - Low risk of patient condition declining or worsening The patient's goals for the shift include comfort The clinical goals for the shift include VSS, safety Problem: Safety - Adult Goal: Free from fall injury Outcome: Progressing Flowsheets (Taken 01/26/20231999) Free from fall injury: Assess patient frequently for physical needs Normal [facility] APTTon 01-26-2023 ACTIVATED PARTIAL THROMBOPLASTIN TIME IN PPP BY COAGULATION ASSAY 30.3 Seconds Normal 25.0-35.0 [facility] Comment on above: Order Comment: Waive d Testing in the ED is performed under the ED CLIA certificate #[id number]. Result Comment: Clin ical significance of the APTT is questionable in the presence of heparin. Performed By: #### L [id number] #### [facility] ([facility] [address] [place] [address] ACTIVATED PARTIAL THROMBOPLASTIN TIME IN PPP BY COAGULATION ASSAY 30.4 Seconds Normal 25.0-35.0 [facility] Comment on above: Order Comment: Waive d Testing in the ED is performed under the ED CLIA certificate #[id number]. Result Comment: Clin ical significance of the APTT is questionable in the presence of heparin. Performed By: #### L [id number] #### [facility] ([facility] [address] [place] [address] ACTIVATED PARTIAL THROMBOPLASTIN TIME IN PPP BY COAGULATION ASSAY 80.8 Seconds High 25.0-35.0 [facility] Comment on above: Result Comment: Clin ical significance of the APTT is questionable in the presence of heparin. Performed By: #### L [id number] #### [facility] ([facility] [address] [place] [address] BASIC METABOLIC PANELon 10-2 Anion gap [Moles/Vol] 13 mmol/L Normal 7-20 [facility] Comment on above: Performed By: #### L [id number] #### [facility] ([facility] [address] [place] [address] Calcium [Mass/Vol] 9.1 mg/dL Normal 8.6-10.3 [facility] Comment on above: Performed By: #### L [id number] #### [facility] ([facility] [address] [place] [address] Chloride [Moles/Vol] 107 mmol/L Normal 98-[address] [facility] Comment on above: Performed By: #### L [id number] #### [facility] ([facility] [address] [place] [address] CO2 [Moles/Vol] 22 mmol/L Normal 21-31 [facility] Comment on above: Performed By: #### L [id number] #### [facility] ([facility] [address] [place] [address] Creatinine [Mass/Vol] 1.77 mg/dL High 0.70-1.30 [facility] Comment on above: Performed By: #### L [id number] #### [facility] ([facility] [address] [place] [address] GLOMERULAR FILTRATION RATE ML/MIN/1.73 SQ M.PREDICTED 40.6 mL/min/1.73m*2 Low >60.0 [facility] Comment on above: Result Comment: [facility]???s estimated glomerular filtration rate (eGFR) will [...] individuals. Performed By: #### L [id number] #### [facility] ([facility] [address] [place] [address] Glucose [Mass/Vol] 125 mg/dL High 70-100 [facility] Comment on above: Performed By: #### L [id number] #### [facility] ([facility] [address] [place] [address] Potassium [Moles/Vol] 4.2 mmol/L Normal 3.5-5.1 [facility] Comment on above: Performed By: #### L [id number] #### [facility] ([facility] [address] [place] [address] Sodium [Moles/Vol] 138 mmol/L Normal 136-145 [facility] Comment on above: Performed By: #### L [id number] #### [facility] ([facility] [address] [place] [address] Urea nitrogen [Mass/Vol] 27 mg/dL High 7-25 [facility] Comment on above: Performed By: #### L [id number] #### [facility] ([facility] [address] [place] [address] UREA NITROGEN/CREATININE (MASS RATIO) IN SER/PLAS 15.3 Normal [facility] Comment on above: Performed By: #### L [id number] #### [facility] ([facility] [address] [place] [address] CBCon 01-26-2023 Erythrocyte distribution width (RBC) [Ratio] 13.2 % Normal 11.5-15.0 [facility] Comment on above: Performed By: #### L [id number] #### [facility] ([facility] [address] [place] [address] ERYTHROCYTE MEAN CORPUSCULAR HEMOGLOBIN CONCENTRATION (G/DL) BY AUTOMATED 34.3 g/dL Normal 32.0-35.0 [facility] Comment on above: Performed By: #### L [id number] #### [facility] ([facility] [address] [place] [address] Hematocrit (Bld) [Volume fraction] 42.0 % Normal 39.0-55.0 [facility] Comment on above: Performed By: #### L [id number] #### [facility] ([facility] [address] [place] [address] Hemoglobin (Bld) [Mass/Vol] 14.4 g/dL Normal 13.0-17.0 [facility] Comment on above: Performed By: #### L [id number] #### [facility] ([facility] [address] [place] [address] MCH (RBC) [Entitic mass] 31.0 pg Normal 27.0-33.0 [facility] Comment on above: Performed By: #### L [id number] #### [facility] ([facility] [address] [place] [address] MCV (RBC) [Entitic vol] 90.3 fL Normal 82.0-98.0 [facility] Comment on above: Performed By: #### L [id number] #### [facility] ([facility] [address] [place] [address] PLATELETS (10*3/UL) IN BLOOD AUTOMATED COUNT 163 10*3/uL Normal 150-400 [facility] Comment on above: Performed By: #### L [id number] #### [facility] ([facility] [address] [place] [address] RBC (Bld) [#/Vol] 4.65 10*6/uL Normal 4.20-5.70 [facility] Comment on above: Performed By: #### L [id number] #### [facility] ([facility] [address] [place] [address] WBC (Bld) [#/Vol] 8.72 10*3/uL Normal 4.00-10.60 [facility] Comment on above: Performed By: #### L [id number] #### [facility] ([facility] [address] [place] [address] POCT GLUCOSE METER UNSOLICIT ED RESULTSon 01-26-2023 Glucose [Mass/Vol] 120 mg/dL High 70-105 [facility] Comment on above: Order Comment: Waive d Testing in the ED is performed under the ED CLIA certificate #[id number]. Result Comment: [email or web address] Performed By: #### L [id number] #### [facility] ([facility] [address] [place] [address] Glucose [Mass/Vol] 155 mg/dL High 70-105 [facility] Comment on above: Order Comment: Waive d Testing in the ED is performed under the ED CLIA certificate #[id number]. Result Comment: [email or web address] Performed By: #### L [id number] ####[facility] ([facility] [place] [address] Glucose [Mass/Vol] 195 mg/dL High 70-105 [facility] Comment on above: Order Comment: Waive d Testing in the ED is performed under the ED CLIA certificate #[id number]. Result Comment: [email or web address] Performed By: #### L [id number] #### [facility] ([facility] [address] [place] [address] 30on 01-25-2023 30 The patient is Moder [...] barriers to discharge with patient and caregiver [facility] 30 The patient is Moder ately Stable - Low risk of patient condition declining or worsening The patient's goals for the shift include rest The clinical goals for the shift include VSS, cath site stable Normal [facility] ANTI-XA (HEPARIN LEVEL)on HEPARIN UNFRACTIONATED (U/ML) IN PPP BY CHROMOGENIC METHOD 0.88 IU/mL High 0.3-0.7 [facility] Comment on above: Order Comment: Anti- Xa (Heparin level) added per protocol. Result Comment: [place] roxaban and Apixaban will interfere with the anti Xa assay used to monitor UFH and LMWH. Performed By: #### L [id number] ####[facility] ([facility] [place] [address] APTTon 01-25-2023 ACTIVATED PARTIAL THROMBOPLASTIN TIME IN PPP BY COAGULATION ASSAY 153.8 Seconds Critically high 25.0-35.0 [facility] Comment on above: Order Comment: Check aPTT every 6 hours while on heparin infusion, or per protocol. Result Comment: Clin ical significance of the APTT is questionable in the presence of heparin. Performed By: #### L [id number] #### [facility] ([facility] [address] [place] [address] B-TYPE NATRIURETIC PEPTIDEon 01-25-2023 Natriuretic peptide B (Bld) [Mass/Vol] 579 pg/mL High 0-100 [facility] Comment on above: Performed By: #### L [id number] #### [facility] ([facility] [address] [place] [address] BASIC METABOLIC PANELon 12-31 Anion gap [Moles/Vol] 15 mmol/L Normal 7-20 [facility] Comment on above: Performed By: #### L [id number] #### [facility] (BEAKER) [address] [place] [address] Calcium [Mass/Vol] 9.6 mg/dL Normal 8.6-10.3 [facility] Comment on above: Performed By: #### L [id number] #### [facility] [address] [place] [address] Chloride [Moles/Vol] 103 mmol/L Normal 98-[address] [facility] Comment on above: Performed By: #### L [id number] #### [facility] ([facility] [address] [place] [address] CO2 [Moles/Vol] 27 mmol/L Normal 21-31 [facility] Comment on above: Performed By: #### L [id number] #### [facility] ([facility] [address] [place] [address] Creatinine [Mass/Vol] 1.83 mg/dL High 0.70-1.30 [facility] Comment on above: Performed By: #### L [id number] #### [facility] ([facility] [address] [place] [address] GLOMERULAR FILTRATION RATE ML/MIN/1.73 SQ M.PREDICTED 39.0 mL/min/1.73m*2 Low >60.0 [facility] Comment on above: Result Comment: [facility]???s estimated glomerular filtration rate (eGFR) will [...] group of individuals. Performed By: #### L [id number] #### [facility] [address] [place] [address] Glucose [Mass/Vol] 168 mg/dL High 70-100 [facility] Comment on above: Performed By: #### L [id number] #### [facility] ([facility] [address] [place] [address] Potassium [Moles/Vol] 4.7 mmol/L Normal 3.5-5.1 [facility] Comment on above: Performed By: #### L [id number] #### [facility] ([facility] [address] [place] [address] Sodium [Moles/Vol] 140 mmol/L Normal 136-145 [facility] Comment on above: Performed By: #### L [id number] #### [facility] ([facility] [address] [place] [address] Urea nitrogen [Mass/Vol] 28 mg/dL High 7-25 [facility] Comment on above: Performed By: #### L [id number] #### [facility] ([facility] [address] [place] [address] UREA NITROGEN/CREATININE (MASS RATIO) IN SER/PLAS 15.3 Normal [facility] Comment on above: Performed By: #### L [id number] #### [facility] ([facility] [address] [place] [address] CBCon 01-25-2023 Erythrocyte distribution width (RBC) [Ratio] 13.1 % Normal 11.5-15.0 [facility] Comment on above: Performed By: #### L [id number] ####[facility] ([facility] [place] [address] ERYTHROCYTE MEAN CORPUSCULAR HEMOGLOBIN CONCENTRATION (G/DL) BY AUTOMATED 33.7 g/dL Normal 32.0-35.0 [facility] Comment on above: Performed By: #### L [id number] ####[facility] ([facility] [place] [address] Hematocrit (Bld) [Volume fraction] 46.3 % Normal 39.0-55.0 [facility] Comment on above: Performed By: #### L [id number] ####[facility] [place] [address] Hemoglobin (Bld) [Mass/Vol] 15.6 g/dL Normal 13.0-17.0 [facility] Comment on above: Performed By: #### L [id number] ####[facility] ([facility] [place] [address] MCH (RBC) [Entitic mass] 30.7 pg Normal 27.0-33.0 [facility] Comment on above: Performed By: #### L [id number] ####[facility] ([facility] [place] [address] MCV (RBC) [Entitic vol] 91.1 fL Normal 82.0-98.0 [facility] Comment on above: Performed By: #### L [id number] ####[facility] ([facility] [place] [address] PLATELETS (10*3/UL) IN BLOOD AUTOMATED COUNT 185 10*3/uL Normal 150-400 [facility] Comment on above: Performed By: #### L [id number] ####[facility] ([facility] [place] [address] RBC (Bld) [#/Vol] 5.08 10*6/uL Normal 4.20-5.70 [facility] Comment on above: Performed By: #### L [id number] ####[facility] ([facility] [place] [address] WBC (Bld) [#/Vol] 8.91 10*3/uL Normal 4.00-10.60 [facility] Comment on above: Performed By: #### L [id number] ####[facility] ([facility] [place] [address] CONSULTon 01-25-2023 CONSULT ------ -- Attestation signed [...] y.o. male was a direct transfer from [facility], the patient is known [...] disease) (CMS/HCC), and Third degree heart block (CMS/[facility]). Surgical History He has a past surgical [...] mg by mouth in the morning. HYDROcodone-acetaminophen ([place]) 5-325 mg tablet TAKE 1 TABLET BY [...] 93 10 (more content not included)... Normal [facility] HPon 01-25-2023 HP H&P reviewed. The jaron mark was examined and there are no changes to the H&P. 72 y.o. male was a direct transfer from [facility], the patient is known to have Coronary artery disease s/p CABG and multiple PCI in the past, PAD, hyperlipidemia, hypertension. The patient has been having worsening chest pain for the last 2 months which got much worse yesterday, the patient went to the ER his troponin was positive he was referred for further evaluation management to [facility]. The patient had coronary angiography and December 2021 showed patent LAD/MENJIVAR graft, patent SVG to OM and PDA. Patient will undergo LHC to evaluate CAD and look for patency of grafts and previously placed stents. Risks and benefits were discussed in detail with patient and agreed to proceed. Normal [facility] PLATELET COUNTon 01-25-2023 PLATELETS (10*3/UL) IN BLOOD AUTOMATED COUNT 183 10*3/uL Normal 150-400 [facility] Comment on above: Performed By: #### L [id number] #### [facility] ([facility]ER) [address] [place] [address] POCT GLUCOSE METER UNSOLICIT ED RESULTSon 01-25-2023 Glucose [Mass/Vol] 143 mg/dL High 70-105 [facility] [place] [facility] Comment on above: Order Comment: Waive d Testing in the ED is performed under the ED CLIA certificate #[id number]. Result Comment: [email or web address] Performed By: #### L [id number] #### [facility] ([facility] [address] [facility] [place] [address] Glucose [Mass/Vol] 211 mg/dL High 70-105 [facility] Comment on above: Order Comment: Waive d Testing in the ED is performed under the ED CLIA certificate #[id number]. Result Comment: [email or web address] [email or web address] Performed By: #### L [id number] #### [facility] ([facility] [address] [facility] [place] [address] Glucose [Mass/Vol] 155 mg/dL High 70-105 [facility] Comment on above: Order Comment: Waive d Testing in the ED is performed under the ED CLIA certificate #[id number]. Result Comment: ksha ugh Performed By: #### L [id number] ####[facility] ([facility] [place] [address] TROPONIN Ion 01-25-2023 Troponin I.cardiac [Mass/Vol] 1.75 ng/mL Critically high 0.00-0.04 [facility] Comment on above: Result Comment: M-TR OPONIN INITIAL CRITICAL HIGH; RESPUN AND RETESTED Performed By: #### L [id number] ####[facility] ([facility] [place] [address] Office Visiton 01-17-2023 Follow-up visit [id number] Lani Lizama 1950 M Date Provider Department Center 01/17/2023 [facility] Family History Problem Relation Age of Onset Heart attack Mother Other Father Other Brother Heart attack Maternal Grandmother Heart attack Maternal Grandfather Family Status - Relation Status Age at Mother Father Brother Maternal Grandmother Maternal Grandfather Level of Service:50368 DC OFFICE/OUTPATIENT ESTABLISHED MOD MDM 30-39 MIN Normal [facility] Office Visiton 10-09-2022 Follow-up visit [id number] Lain Lizama 1950 M Date Provider Department Center 10/09/2022 [id number]-XLTCSUKSDDEISY SOARES [facility] Family History Problem Relation Age of Onset Heart attack Mother Other Father Other Brother Heart attack Maternal Grandmother Heart attack Maternal Grandfather Family Status - Relation Status Age at Mother Father Brother Maternal Grandmother Maternal Grandfather Level of Service:01002 DC OFFICE/OUTPATIENT ESTABLISHED MOD MDM 30-39 MIN Normal [facility] CT CHEST WO CONon 08-09-2022 CT [...] pulmonary nodule or consolidation. Electronically authenticated by: HAZLE SCHILLING Date: 2022-08-09 14:00 Normal [facility] A1C HEMOGLOBINon 06-26-2022 HbA1c (Bld) [Mass fraction] 7.4 % [employer] Other Glucose - FINGER STICKon Glucose [Mass/Vol] 267 mg/dL [employer] Other HbA1c (Bld) [Mass fraction]o n 06-26-2022 A1C HEMOGLOBIN [employer] [facility] Other PTH INTACTon 06-26-2022 PTH, Intact 37 pg/mL Normal 15-65 [facility] Comment on above: Performed By: #### C MP, CMADM #### [facility] [address] [place] [address] Dr. Mirza Sadler FERRITINon 06-25-2022 Ferritin [Mass/Vol] 269.0 ng/mL Normal 26.0-388.0 [facility] Comment on above: Performed By: #### B INDUSTRIAL DESIGNER #### [facility] [address] [place] [address] Dr. Mirza Sadler HEMOGRAM AND PLATELon 2022 Hematocrit (Bld) [Volume fraction] 44.7 % Normal 42.0-54.0 [facility] Comment on above: Performed By: #### P T, PTT #### [facility] [address] [place] [address] Dr. Mirza Sadler Hemoglobin (Bld) [Mass/Vol] 15.1 g/dL Normal 14.0-18.0 [facility] Comment on above: Performed By: #### P T, PTT #### [facility] [address] [place] [address] Dr. Mirza Sadler MCH (RBC) [Entitic mass] 30.0 pg Normal 25.9-34.0 [facility] Comment on above: Performed By: #### P T, PTT #### [facility] [address] [place] [address] Dr. Mirza Sadler MCHC (RBC) [Mass/Vol] 33.8 g/dL Normal 29.9-35.2 [facility] Comment on above: Performed By: #### P T, PTT #### [facility] [address] [place] [address] Dr. Mirza Sadler MCV (RBC) [Entitic vol] 88.9 fL Normal 80.0-94.0 [facility] Comment on above: Performed By: #### P T, PTT #### [facility] [address] [place] [address] Dr. Mirza Sadler PLT 199 103/ul Normal 150-450 [facility] Comment on above: Performed By: #### P T, PTT #### [facility] [address] [place] [address] Dr. Mirza Sadler RBC 5.03 106/ul Normal 4.70-6.10 [facility] Comment on above: Performed By: #### P T, PTT #### [facility] [address] [place] [address] Dr. Mirza Sadler WBC 8.7 103/ul Normal 4.0-11.0 [facility] Comment on above: Performed By: #### P T, PTT #### [facility] [address] [place] [address] Dr. Mirza Sadler IRON AND TIBCon 06-25-2022 % SATURATION 28.6 % Normal [facility] Comment on above: Performed By: #### B INDUSTRIAL DESIGNER #### [facility] [address] [place] [address] Dr. Mirza Sadler Iron [Mass/Vol] 82.0 ug/dL Normal 65.0-175.0 [facility] Comment on above: Performed By: #### B INDUSTRIAL DESIGNER #### [facility] [address] [place] [address] Dr. Mirza Sadler TIBC DIRECT 287.0 ug/dL Normal 250.0-450. 0 [facility] Comment on above: Performed By: #### B INDUSTRIAL DESIGNER #### [facility] [address] [place] [address] Dr. Mirza Sadler MAGNESIUMon 06-25-2022 Magnesium [Mass/Vol] 2.0 mg/dL Normal 1.8-2.4 [facility] Comment on above: Performed By: #### B INDUSTRIAL DESIGNER #### [facility] [address] [place] [address] Dr. Mirza Sadler RENAL FUNCTION PANELon 06-25 Albumin [Mass/Vol] 4.2 g/dL Normal 3.4-5.0 [facility] Comment on above: Performed By: #### B INDUSTRIAL DESIGNER #### [facility] [address] [address] [address] Mirza Sadler Calcium [Mass/Vol] 9.3 mg/dL Normal 8.5-10.1 [facility] Comment on above: Performed By: #### B INDUSTRIAL DESIGNER #### [facility] [address] [address] [address] Mirza Sadler Chloride [Moles/Vol] 108 mmol/L Critically high 98-107 [facility] Comment on above: Performed By: #### B INDUSTRIAL DESIGNER #### [facility] [address] [place] [address] Dr. Mirza Sadler CO2 [Moles/Vol] 29.5 mmol/L Normal 21.0-32.0 [facility] Comment on above: Performed By: #### B INDUSTRIAL DESIGNER #### [facility] [address] [place] [address] Dr. Mirza Sadler Creatinine [Mass/Vol] 1.87 mg/dL Critically high 0.70-1.30 [facility] Comment on above: Performed By: #### B INDUSTRIAL DESIGNER #### [facility] [address] [place] [address] Dr. Mirza Sadler EGFR-AF ISRAELI 43 mL/min/1.73m2 Critically low >=60 [facility] Comment on above: Performed By: #### B INDUSTRIAL DESIGNER #### [facility] [address] [place] [address] Dr. Mirza Sadler EGFR-NON AF ISRAELI 36 mL/min/1.73m2 Critically low >=60 [facility] Comment on above: Performed By: #### B INDUSTRIAL DESIGNER #### [facility] [address] [place] [address] Dr. Mirza Sadler Glucose [Mass/Vol] 181 mg/dL Critically high 74-106 [facility] Comment on above: Performed By: #### B INDUSTRIAL DESIGNER #### [facility] [address] [place] [address] Dr. Mirza Sadler Phosphate [Mass/Vol] 4.8 mg/dL Critically high 2.6-4.7 [facility] Comment on above: Performed By: #### B INDUSTRIAL DESIGNER #### [facility] [address] [place] [address] Dr. Mirza Sadler Potassium [Moles/Vol] 4.8 mmol/L Normal 3.5-5.1 [facility] Comment on above: Performed By: #### B INDUSTRIAL DESIGNER #### [facility] [address] [place] [address] Dr. Mirza Sadler Sodium [Moles/Vol] 146 mmol/L Critically high 136-145 [facility] Comment on above: Performed By: #### B INDUSTRIAL DESIGNER #### [facility] [address] [place] [address] Dr. Mirza Sadler Urea nitrogen [Mass/Vol] 40.0 mg/dL Critically high 7.0-18.0 [facility] Comment on above: Performed By: #### B INDUSTRIAL DESIGNER #### [facility] [address] [place] [address] Dr. Mirza Sadler UA RANDOM W/MICROSCOPICon BACTERIA NONE SEEN Normal NONE SEEN [facility] Comment on above: Performed By: #### H STROPN #### [facility] [address] [place] [address] Dr. Mirza Sadler Bilirubin Ql (U) Negative Normal NEGATIVE [facility] Comment on above: Performed By: #### H STROPN #### [facility] [address] [place] [address] Dr. Mirza Sadler CAST NONE SEEN Normal NONE SEEN [facility] Comment on above: Performed By: #### H STROPN #### [facility] [address] [place] [address] Dr. Mirza Sadler Clarity (U) CLEAR Normal CLEAR [facility] Comment on above: Performed By: #### H STROPN #### [facility] [address] [place] [address] Dr. Mirza Sadler Color (U) LT. YELLOW Normal YELLOW [facility] Comment on above: Performed By: #### H STROPN #### [facility] [address] [address] [address] Mirza Sadler Crystals LM Nom (Urine sed) NONE SEEN Normal NONE SEEN [facility] Comment on above: Performed By: #### H STROPN #### [facility] [address] [address] [address] Mirza Sadler Epithelial cells LM Ql (Urine sed) FEW Abnormal NONE SEEN /RARE [facility] Comment on above: Performed By: #### H STROPN #### [facility] [address] [place] [address] Dr. Mirza Sadler Glucose Ql (U) 500 mg/dl Abnormal NEGATIVE [facility] Comment on above: Performed By: #### H STROPN #### [facility] [address] [place] [address] Dr. Mirza Sadler Hemoglobin Ql (U) Negative Normal NEGATIVE [facility] Comment on above: Performed By: #### H STROPN #### [facility] [address] [address] [address] Mirza Sadler Ketones Ql (U) Negative Normal NEGATIVE [facility] Comment on above: Performed By: #### H STROPN #### [facility] [address] [place] [address] Dr. Mirza Sadler LEUKOCYTES Negative Normal NEGATIVE [facility] Comment on above: Performed By: #### H STROPN #### [facility] [address] [address] [address] Mirza Sadler MUCOUS NONE SEEN Normal NONE SEEN [facility] Comment on above: Performed By: #### H STROPN #### [facility] [address] [place] [address] Dr. Mirza Sadler Nitrite Ql (U) Negative Normal NEGATIVE [facility] Comment on above: Performed By: #### H STROPN #### [facility] [address] [place] [address] Dr. Mirza Sadler pH (U) 5.5 [pH] Normal 5-9 [facility] Comment on above: Performed By: #### H STROPN #### [facility] [address] [place] [address] Dr. Mirza Sadler RBC 0-2 Normal 0-2 [facility] Comment on above: Performed By: #### H STROPN #### [facility] [address] [place] [address] Dr. Mirza Sadler SPEC GRAVITY 1.015 Normal 1.005-<=1. 025 [facility] Comment on above: Performed By: #### H STROPN #### [facility] [address] [place] [address] Dr. Mirza Sadler UA PROTEIN Negative Normal NEGATIVE/ TRACE [facility] Comment on above: Performed By: #### H STROPN #### [facility] [address] [place] [address] Dr. Mirza Sadler Urobilinogen Qn (U) 0.2 {Luisito'U}/dL Normal 0.2 - 1. 0 [facility] Comment on above: Performed By: #### H STROPN #### [facility] [address] [place] [address] Dr. Mirza Sadler WBC NONE SEEN Normal NONE SEEN [facility] Comment on above: Performed By: #### H STROPN #### [facility] [address] [place] [address] Dr. Mirza Sadler URIC ACID SERUMon 06-25-2022 Urate [Mass/Vol] 6.1 mg/dL Normal 3.5-7.2 [facility] Comment on above: Performed By: #### B INDUSTRIAL DESIGNER #### [facility] [address] [place] [address] Dr. Mirza Sadler URINE T PROTEIN CREAT RATIOo n 06-25-2022 Protein (U) [Mass/Vol] 9.7 mg/dL Normal <=12.0 [facility] Comment on above: Performed By: #### C TEGAN MARIN #### [facility] [address] [place] [address] Dr. Mirza Sadler UR PROT CREAT RAT 0.14 Normal [facility] Comment on above: Performed By: #### C TEGAN MARIN #### [facility] [address] [place] [address] Dr. Mirza Sadler URINE CREAT 71.45 mg/dL Normal 20.00-300. 00 [facility] Comment on above: Performed By: #### C TANIA, TEGAN #### [facility] [address] [place] [address] Dr. Mirza Sadler VITAMIN D 25 OHon 06-25-2022 VIT D 25-OH 44.7 ng/mL Normal [facility] Comment on above: Performed By: #### E RUR #### [facility] [address] [place] [address] Dr. Mirza Sadler VIT D RANGES SEE BELOW Normal [facility] Comment on above: Result Comment: <20 ng/mL Vit D deficient 20 - <30 ng/mL Vit D insufficient 30 - 100 ng/mL Vit D sufficient >100 ng/mL Potential Toxicity Performed By: #### E RUR #### [facility] [address] [place] [address] Dr. Mirza Sadler LIPID PROFILEon 06-18-2022 CHOL-HDL RATIO NORM SEE BELOW Normal [facility] Comment on above: Result Comment: 3.3 - 4.4 LOW RISK 4.4 - 7.1 AVERAGE RISK 7.1 - 11.0 MODERATE RISK >11.0 HIGH RISK Performed By: #### H STROPN #### [facility] [address] [place] [address] Dr. Mirza Sadler Cholesterol [Mass/Vol] 136 mg/dL Normal <=200 [facility] Comment on above: Performed By: #### H STROPN #### [facility] [address] [place] [address] Dr. Mirza Sadler Cholesterol in HDL [Mass/Vol] 38 mg/dL Critically low 40-60 [facility] Comment on above: Performed By: #### H STROPN #### [facility] [address] [place] [address] Dr. Mirza Sadler Cholesterol in LDL [Mass/Vol] 69.6 mg/dL Normal [facility] Comment on above: Performed By: #### H STROPN #### [facility] [address] [place] [address] Dr. Mirza Sadler Cholesterol.total/Cho lesterol in HDL [Mass ratio] 3.6 {ratio} Normal [facility] Comment on above: Performed By: #### H STROPN #### [facility] [address] [address] [address] Mirza Sadler HDL NORMAL > or = 60 mg/dl - LO W CARDIOVASCULAR RISK <40 mg/dl - HIGH CARDIOVASCULAR RISK Normal [facility] Comment on above: Performed By: #### H STROPN #### [facility] [address] [address] [address] Mirza Sadelr LDL CALC NORMAL SEE BELOW Normal [facility] Comment on above: Result Comment: <100 mg/dl OPTIMAL 100 - 129 mg/dl NEAR OR ABOVE OPTIMAL 130 - 159 mg/dl BORDERLINE HIGH 160 - 189 mg/dl HIGH >190 mg/dl VERY HIGH Performed By: #### H STROPN #### [facility] [address] [address] [address] Mirza Sadler Triglyceride [Mass/Vol] 142 mg/dL Normal <=150 [facility] Comment on above: Performed By: #### H STROPN #### [facility] [address] [address] [address] Mirza Sadler VLDL CALC 28.4 mg/dL Normal [facility] Comment on above: Performed By: #### H STROPN #### [facility] [address] [address] [address] CHEST WO CONon [...] HIGINIO FLANAGAN Date: 2022-06-05 16:58 Normal [facility] CT CHEST WO [place] Other PROF CHEM 8 (BAS METB)on Anion gap [Moles/Vol] 10.2 mmol/L Normal [facility] Comment on above: Performed By: #### B INDUSTRIAL DESIGNER #### [facility] [address] [address] [address] Mirza Sadler Calcium [Mass/Vol] 8.9 mg/dL Normal 8.5-10.1 [facility] Comment on above: Performed By: #### B INDUSTRIAL DESIGNER #### [facility] [address] [address] [address] Mirza Sadler Chloride [Moles/Vol] 101 mmol/L Normal 98-107 [facility] Comment on above: Performed By: #### B INDUSTRIAL DESIGNER #### [facility] [address] [address] [address] Mirza Sadler CO2 [Moles/Vol] 31.2 mmol/L Normal 21.0-32.0 [facility] Comment on above: Performed By: #### B INDUSTRIAL DESIGNER #### [facility] [address] [address] [address] Mirza Sadler Creatinine [Mass/Vol] 1.91 mg/dL Critically high 0.70-1.30 [facility] Comment on above: Performed By: #### B INDUSTRIAL DESIGNER #### [facility] [address] [address] [address] Mirza Sadler EGFR-AF ISRAELI 42 mL/min/1.73m2 Critically low >=60 [facility] Comment on above: Performed By: #### B INDUSTRIAL DESIGNER #### [facility] [address] [address] [address] Mirza Sadler EGFR-NON AF ISRAELI 35 mL/min/1.73m2 Critically low >=60 [facility] Comment on above: Performed By: #### B INDUSTRIAL DESIGNER #### [facility] [address] [address] [address] Mirza Sadler Glucose [Mass/Vol] 242 mg/dL Critically high 74-106 [facility] Comment on above: Performed By: #### B INDUSTRIAL DESIGNER #### [facility] [address] [address] [address] Mirza Sadler Potassium [Moles/Vol] 4.4 mmol/L Normal 3.5-5.1 [facility] Comment on above: Performed By: #### B INDUSTRIAL DESIGNER #### [facility] [address] [address] [address] Mirza Sadler Sodium [Moles/Vol] 138 mmol/L Normal 136-145 [facility] Comment on above: Performed By: #### B INDUSTRIAL DESIGNER #### [facility] [address] [address] [address] Mirza Sadler Urea nitrogen [Mass/Vol] 33.0 mg/dL Critically high 7.0-18.0 [facility] Comment on above: Performed By: #### B INDUSTRIAL DESIGNER #### [facility] [address] [address] [address] Mirza Sadler Urea nitrogen/Creatinine [Mass ratio] 17.3 mg/mg Normal [facility] Comment on above: Performed By: #### B INDUSTRIAL DESIGNER #### [facility] [address] [address] [address] Mirza Sadler PROF CHEM 8 (BAS METB)on Anion gap [Moles/Vol] 10.7 mmol/L Normal [facility] Comment on above: Performed By: #### P T, PTT #### [facility] [address] [address] [address] Mirza Sadler Calcium [Mass/Vol] 8.9 mg/dL Normal 8.5-10.1 [facility] Comment on above: Performed By: #### P T, PTT #### [facility] [address] [address] [address] Mirza Sadler Chloride [Moles/Vol] 104 mmol/L Normal 98-107 [facility] Comment on above: Performed By: #### P T, PTT #### [facility] [address] [place] [address] Dr. Mirza Sadler CO2 [Moles/Vol] 29.4 mmol/L Normal 21.0-32.0 [facility] Comment on above: Performed By: #### P T, PTT #### [facility] [address] [place] [address] Dr. Mirza Sadler Creatinine [Mass/Vol] 1.75 mg/dL Critically high 0.70-1.30 [facility] Comment on above: Performed By: #### P T, PTT #### [facility] [address] [place] [address] Dr. Mirza Sadler EGFR-AF ISRAELI 47 mL/min/1.73m2 Critically low >=60 [facility] Comment on above: Performed By: #### P T, PTT #### [facility] [address] [place] [address] Dr. Mirza Sadler EGFR-NON AF ISRAELI 39 mL/min/1.73m2 Critically low >=60 [facility] Comment on above: Performed By: #### P T, PTT #### [facility] [address] [address] [address] Mirza Sadler Glucose [Mass/Vol] 191 mg/dL Critically high 74-106 [facility] Comment on above: Performed By: #### P T, PTT #### [facility] [address] [place] [address] Dr. Mirza Sadler Potassium [Moles/Vol] 4.1 mmol/L Normal 3.5-5.1 [facility] Comment on above: Performed By: #### P T, PTT #### [facility] [address] [place] [address] Dr. Mirza Sadler Sodium [Moles/Vol] 140 mmol/L Normal 136-145 [facility] Comment on above: Performed By: #### P T, PTT #### [facility] [address] [address] [address] Mirza Sadler Urea nitrogen [Mass/Vol] 31.0 mg/dL Critically high 7.0-18.0 [facility] Comment on above: Performed By: #### P T, PTT #### [facility] [address] [address] [address] Mirza Sadler Urea nitrogen/Creatinine [Mass ratio] 17.7 mg/mg Normal [facility] Comment on above: Performed By: #### P T, PTT #### [facility] [address] [address] [address] Mirza Sadler XR CHEST 2 Von [...] by: HIGINIO FLANAGAN Date: 2022-03-22 16:12 Normal [facility] A1C HEMOGLOBINon 03-20-2022 HbA1c (Bld) [Mass fraction] 6.7 % [employer] Other Glucose - FINGER STICKon Glucose [Mass/Vol] 193 mg/dL [employer] Other HbA1c (Bld) [Mass fraction]o n 03-20-2022 A1C HEMOGLOBIN [employer] Other BNPon 03-13-2022 Natriuretic peptide B (Bld) [Mass/Vol] 4825.0 pg/mL Critically high <=900.0 [facility] Comment on above: Performed By: #### E RUR #### [facility] [address] [place] [address] Dr. Mirza Sadler CBC AUTO DIFFon 03-13-2022 BASO # 0.0 103/ul Normal 0.0-0.1 [facility] Comment on above: Performed By: #### E RUR #### [facility] [address] [place] [address] Dr. Mirza Sadler Basophils/100 WBC (Bld) 0.6 % Normal 0.2-2.0 [facility] Comment on above: Performed By: #### E RUR #### [facility] [address] [place] [address] Dr. Mirza Sadler EO # 0.1 103/ul Normal 0.0-0.7 [facility] Comment on above: Performed By: #### E RUR #### [facility] [address] [place] [address] Dr. Mirza Sadler Eosinophils/100 WBC (Bld) 1.8 % Normal 0.9-7.0 [facility] Comment on above: Performed By: #### E RUR #### [facility] [address] [place] [address] Dr. Mirza Sadler Erythrocyte distribution width (RBC) [Ratio] 14.4 % Normal 11.0-15.0 [facility] Comment on above: Performed By: #### E RUR #### [facility] [address] [place] [address] Dr. Mirza Sadler Hematocrit (Bld) [Volume fraction] 36.1 % Critically low 42.0-54.0 [facility] Comment on above: Performed By: #### E RUR #### [facility] [address] [place] [address] Dr. Mirza Sadler Hemoglobin (Bld) [Mass/Vol] 11.9 g/dL Critically low 14.0-18.0 [facility] Comment on above: Performed By: #### E RUR #### [facility] [address] [place] [address] Dr. Mirza Sadler IG # 0.02 10e3/ul Normal 0.00-0.03 [facility] Comment on above: Performed By: #### E RUR #### [facility] [address] [place] [address] Dr. Mirza Sadler IG % 0.3 % Normal 0.0-0.5 [facility] Comment on above: Performed By: #### E RUR #### [facility] [address] [place] [address] Dr. Mirza Sadler LYMPH # 1.5 103/ul Normal 1.2-3.8 [facility] Comment on above: Performed By: #### E RUR #### [facility] [address] [place] [address] Dr. Mirza Sadler Lymphocytes/100 WBC (Bld) 22.6 % Normal 20.5-60.0 [facility] Comment on above: Performed By: #### E RUR #### [facility] [address] [place] [address] Dr. Mirza Sadler MANUAL DIFF REQ NO Normal [facility] Comment on above: Performed By: #### E RUR #### [facility] [address] [place] [address] Dr. Mirza Sadler MCH (RBC) [Entitic mass] 29.0 pg Normal 25.9-34.0 [facility] Comment on above: Performed By: #### E RUR #### [facility] [address] [place] [address] Dr. Mirza Sadler MCHC (RBC) [Mass/Vol] 33.0 g/dL Normal 29.9-35.2 [facility] Comment on above: Performed By: #### E RUR #### [facility] [address] [place] [address] Dr. Mirza Sadler MCV (RBC) [Entitic vol] 88.0 fL Normal 80.0-94.0 [facility] Comment on above: Performed By: #### E RUR #### [facility] [address] [address] [address] Mirza Sadler MONO # 0.7 103/ul Normal 0.3-0.8 [facility] Comment on above: Performed By: #### E RUR #### [facility] [address] [place] [address] Dr. Mirza Sadler Monocytes/100 WBC (Bld) 10.2 % Normal 1.7-12.0 [facility] Comment on above: Performed By: #### E RUR #### [facility] [address] [place] [address] Dr. Mirza Sadler NEUT # 4.3 103/ul Normal 1.4-6.5 [facility] Comment on above: Performed By: #### E RUR #### [facility] [address] [place] [address] Dr. Mirza Sadler Neutrophils/100 WBC (Bld) 64.5 % Normal 43.0-75.0 [facility] Comment on above: Performed By: #### E RUR #### [facility] [address] [place] [address] Dr. Mirza Sadler Platelet mean volume (Bld) [Entitic vol] 9.7 fL Normal 9.5-13.5 [facility] Comment on above: Performed By: #### E RUR #### [facility] [address] [place] [address] Dr. Mirza Sadler PLT 149 103/ul Critically low 150-450 [facility] Comment on above: Performed By: #### E RUR #### [facility] [address] [place] [address] Dr. Mirza Sadler RBC 4.10 106/ul Critically low 4.70-6.10 [facility] Comment on above: Performed By: #### E RUR #### [facility] [address] [place], [place] [id number] Dr. Mirza Sadler WBC 6.6 103/ul Normal 4.0-11.0 [facility] Comment on above: Performed By: #### E RUR #### [facility] [address] [place] [address] Dr. Mirza Sadler PROF CHEM 8 (BAS METB)on Anion gap [Moles/Vol] 14.6 mmol/L Normal [facility] Comment on above: Performed By: #### E RUR #### [facility] [address] [address] [address] Mirza Sadler Calcium [Mass/Vol] 8.5 mg/dL Normal 8.5-10.1 [facility] Comment on above: Performed By: #### E RUR #### [facility] [address] [address] [address] Mirza Sadler Chloride [Moles/Vol] 104 mmol/L Normal 98-107 [facility] Comment on above: Performed By: #### E RUR #### [facility] [address] [address] [address] Mirza Sadler CO2 [Moles/Vol] 22.7 mmol/L Normal 21.0-32.0 [facility] Comment on above: Performed By: #### E RUR #### [facility] [address] [address] [address] Mirza Sadler Creatinine [Mass/Vol] 1.78 mg/dL Critically high 0.70-1.30 [facility] Comment on above: Performed By: #### E RUR #### [facility] [address] [address] [address] Mirza Sadler EGFR-AF ISRAELI 46 mL/min/1.73m2 Critically low >=60 [facility] Comment on above: Performed By: #### E RUR #### [facility] [address] [address] [address] Mirza Sadler EGFR-NON AF ISRAELI 38 mL/min/1.73m2 Critically low >=60 [facility] Comment on above: Performed By: #### E RUR #### [facility] [address] [address] [address] Mirza Sadler Glucose [Mass/Vol] 121 mg/dL Critically high 74-106 [facility] Comment on above: Performed By: #### E RUR #### [facility] [address] [address] [address] Mirza Sadler Potassium [Moles/Vol] 3.3 mmol/L Critically low 3.5-5.1 [facility] Comment on above: Performed By: #### E RUR #### [facility] [address] [address] [address] Mirza Sadler Sodium [Moles/Vol] 138 mmol/L Normal 136-145 [facility] Comment on above: Performed By: #### E RUR #### [facility] [address] [place] [address] Dr. Mirza Sadler Urea nitrogen [Mass/Vol] 30.0 mg/dL Critically high 7.0-18.0 [facility] Comment on above: Performed By: #### E RUR #### [facility] [address] [place] [address] Dr. Mirza Sadler Urea nitrogen/Creatinine [Mass ratio] 16.9 mg/mg Normal [facility] Comment on above: Performed By: #### E RUR #### [facility] [address] [place] [address] Dr. Mirza Sadler BNPon 03-12-2022 Natriuretic peptide B (Bld) [Mass/Vol] 7452.0 pg/mL Critically high <=900.0 [facility] Comment on above: Performed By: #### C MP, CMADM #### [facility] [address] [place] [address] Dr. Mirza Sadler CBC AUTO DIFFon 03-12-2022 BASO # 0.0 103/ul Normal 0.0-0.1 [facility] Comment on above: Performed By: #### P T, PTT #### [facility] [address] [place] [address] Dr. Mirza Sadler Basophils/100 WBC (Bld) 0.4 % Normal 0.2-2.0 [facility] Comment on above: Performed By: #### P T, PTT #### [facility] [address] [place] [address] Dr. Mirza Sadler EO # 0.0 103/ul Normal 0.0-0.7 [facility] Comment on above: Performed By: #### P T, PTT #### [facility] [address] [place] [address] Dr. Mirza Sdaler Eosinophils/100 WBC (Bld) 0.2 % Critically low 0.9-7.0 [facility] Comment on above: Performed By: #### P T, PTT #### [facility] [address] [place] [address] Dr. Mirza Sadler Erythrocyte distribution width (RBC) [Ratio] 14.6 % Normal 11.0-15.0 [facility] Comment on above: Performed By: #### P T, PTT #### [facility] [address] [place] [address] Dr. Mirza Sadler Hematocrit (Bld) [Volume fraction] 37.8 % Critically low 42.0-54.0 [facility] Comment on above: Performed By: #### P T, PTT #### [facility] [address] [place] [address] Dr. Mirza Sadler Hemoglobin (Bld) [Mass/Vol] 12.2 g/dL Critically low 14.0-18.0 [facility] Comment on above: Performed By: #### P T, PTT #### [facility] [address] [place] [address] Dr. Mirza Sadler IG # 0.03 10e3/ul Normal 0.00-0.03 [facility] Comment on above: Performed By: #### P T, PTT #### [facility] [address] [place] [address] Dr. Mirza Sadler IG % 0.3 % Normal 0.0-0.5 [facility] Comment on above: Performed By: #### P T, PTT #### [facility] [address] [place] [address] Dr. Mirza Sadler LYMPH # 1.2 103/ul Normal 1.2-3.8 [facility] Comment on above: Performed By: #### P T, PTT #### [facility] [address] [place] [address] Dr. Mirza Sadler Lymphocytes/100 WBC (Bld) 11.5 % Critically low 20.5-60.0 [facility] Comment on above: Performed By: #### P T, PTT #### [facility] [address] [place] [address] Dr. Mirza Sadler MANUAL DIFF REQ NO Normal [facility] Comment on above: Performed By: #### P T, PTT #### [facility] [address] [place] [address] Dr. Mirza Sadler MCH (RBC) [Entitic mass] 29.0 pg Normal 25.9-34.0 [facility] Comment on above: Performed By: #### P T, PTT #### [facility] [address] [place] [address] Dr. Mirza Sadler MCHC (RBC) [Mass/Vol] 32.3 g/dL Normal 29.9-35.2 [facility] Comment on above: Performed By: #### P T, PTT #### [facility] [address] [place] [address] Dr. Mirza Sadler MCV (RBC) [Entitic vol] 89.8 fL Normal 80.0-94.0 [facility] Comment on above: Performed By: #### P T, PTT #### [facility] [address] [place] [address] Dr. Mirza Sadler MONO # 0.7 103/ul Normal 0.3-0.8 [facility] Comment on above: Performed By: #### P T, PTT #### [facility] [address] [place] [address] Dr. Mirza Sadler Monocytes/100 WBC (Bld) 6.8 % Normal 1.7-12.0 [facility] Comment on above: Performed By: #### P T, PTT #### [facility] [address] [place] [address] Dr. Mirza Sadler NEUT # 8.5 103/ul Critically high 1.4-6.5 [facility] Comment on above: Performed By: #### P T, PTT #### [facility] [address] [place] [address] Dr. Mirza Sadler Neutrophils/100 WBC (Bld) 80.8 % Critically high 43.0-75.0 [facility] Comment on above: Performed By: #### P T, PTT #### [facility] [address] [address] [address] Mirza Sadler Platelet mean volume (Bld) [Entitic vol] 9.8 fL Normal 9.5-13.5 [facility] Comment on above: Performed By: #### P T, PTT #### [facility] [address] [address] [address] Mirza Sadler PLT 165 103/ul Normal 150-450 [facility] Comment on above: Performed By: #### P T, PTT #### [facility] [address] [address] [address] Mirza Sadler RBC 4.21 106/ul Critically low 4.70-6.10 [facility] Comment on above: Performed By: #### P T, PTT #### [facility] [address] [address] [address] Mirza Sadler WBC 10.5 103/ul Normal 4.0-11.0 [facility] Comment on above: Performed By: #### P T, PTT #### [facility] [address] [address] [address] Mirza Sadler ECHOCARDIO M/2D COMPLETEon 1 05-13-2021 ECHOCARDIO M/2D COMPLETE Patient: LANI LIZAMA Exam Date: 03/12/2022 : 1950 Gender:M Ordering : DR OBDULIO ALVA . Admission #: [id number] Family : DR HARLEY CRESPO D.O. Order #: [id number] CLICK HERE TO VIEW EXAM ECHOCARDIOGRAM REPORT PROCEDURE: CARDIO PULMONARY ECHOCARDIO M/2D COMP INDICATIONS: Elevated TROP and BNPChest pain, recent OK, CHF, CBAG x 5, PTCA x 7 [...] Foreman M.D. on 03/13/2022 at 17:42 Normal [facility] PROF CHEM 8 (BAS METB)on Anion gap [Moles/Vol] 17.8 mmol/L Normal [facility] Comment on above: Performed By: #### C TANIA, DOMDM #### [facility] [address] [address] [address] Mirza Sadler Calcium [Mass/Vol] 8.6 mg/dL Normal 8.5-10.1 [facility] Comment on above: Performed By: #### C TANIA, DOMDM #### [facility] [address] [address] [address] Mirza Sadler Chloride [Moles/Vol] 103 mmol/L Normal 98-107 [facility] Comment on above: Performed By: #### C TANIA, CMADM #### [facility] [address] [address] [address] Mirza Sadler CO2 [Moles/Vol] 22.3 mmol/L Normal 21.0-32.0 [facility] Comment on above: Performed By: #### C TANIA, DOMDM #### [facility] [address] [address] [address] Mirza Sadler Creatinine [Mass/Vol] 1.81 mg/dL Critically high 0.70-1.30 [facility] Comment on above: Performed By: #### C TANIA, CMADM #### [facility] [address] [place] [address] Dr. Mirza Sadler EGFR-AF ISRAELI 45 mL/min/1.73m2 Critically low >=60 [facility] Comment on above: Performed By: #### C TANIA, DOMDM #### [facility] [address] [place] [address] Dr. Mirza Sadler EGFR-NON AF ISRAELI 37 mL/min/1.73m2 Critically low >=60 [facility] Comment on above: Performed By: #### C TANIA, CMADM #### [facility] [address] [address] [address] Mirza Sadler Glucose [Mass/Vol] 161 mg/dL Critically high 74-106 [facility] Comment on above: Performed By: #### C TANIA, CMADM #### [facility] [address] [address] [address] Mirza Sadler Potassium [Moles/Vol] 4.1 mmol/L Normal 3.5-5.1 [facility] Comment on above: Performed By: #### C TANIA, CMADM #### [facility] [address] [address] [address] Mirza Sadler Sodium [Moles/Vol] 139 mmol/L Normal 136-145 [facility] Comment on above: Performed By: #### C TANIA, CMADM #### [facility] [address] [place] [address] Dr. Mirza Sadler Urea nitrogen [Mass/Vol] 28.0 mg/dL Critically high 7.0-18.0 [facility] Comment on above: Performed By: #### C TANIA, CMADM #### [facility] [address] [address] [address] Mirza Sadler Urea nitrogen/Creatinine [Mass ratio] 15.5 mg/mg Normal [facility] Comment on above: Performed By: #### C TANIA, CMADM #### [facility] [address] [place] [address] Dr. Mirza Sadler TROPONIN, HIGH SENSITIVITYon 03-12-2022 HSTROP 40367.5 pg/mL Critically high 4.0-76.1 [facility] Comment on above: Result Comment: CUT- OFF POINTS HAVE BEEN ESTABLISHED BASED ON THE FOURTH UNIVERSAL DEFINITIONS OF MYOCARDIAL INFARCTION. THE UPPER REFERENCE LIMIT (URL) OF TROPONIN, DEFINED THE 99TH PERCENTILE OF cTnI DISTRIBUTION IN A REFERENCE POPULATION, HAS BEEN CONFIRMED THE DECISION THRESHOLD FOR OK DIAGNOSIS. Performed By: #### C TANIA, CMADM #### [facility] [address] [place] [address] Dr. Mirza Sadler BNPon 03-11-2022 Natriuretic peptide B (Bld) [Mass/Vol] 1378.0 pg/mL Critically high <=900.0 [facility] Comment on above: Performed By: #### P T, PTT #### [facility] [address] [place] [address] Dr. Mirza Sadler CARDIAC PARUL 3-6on 2 CK [Catalytic activity/Vol] 139 U/L Normal 39-308 [facility] Comment on above: Performed By: #### E RUR #### [facility] [address] [place] [address] Dr. Mirza Sadler CK.MB [Mass/Vol] 7.50 ng/mL Critically high <=3.60 [facility] Comment on above: Performed By: #### E RUR #### [facility] [address] [place] [address] Dr. Mirza Sadler HSTROP 1419.3 pg/mL Critically high 4.0-76.1 [facility] Comment on above: Result Comment: CUT- OFF POINTS HAVE BEEN ESTABLISHED BASED ON THE FOURTH UNIVERSAL DEFINITIONS OF MYOCARDIAL INFARCTION. THE UPPER REFERENCE LIMIT (URL) OF TROPONIN, DEFINED THE 99TH PERCENTILE OF cTnI DISTRIBUTION IN A REFERENCE POPULATION, HAS BEEN CONFIRMED THE DECISION THRESHOLD FOR OK DIAGNOSIS. Performed By: #### E RUR #### [facility] [address] [place] [address] Dr. Mirza Sadler CBC AUTO DIFFon 03-11-2022 BASO # 0.1 103/ul Normal 0.0-0.1 [facility] Comment on above: Performed By: #### E RUR #### [facility] [address] [place] [address] Dr. Mirza Sadler Basophils/100 WBC (Bld) 0.5 % Normal 0.2-2.0 [facility] Comment on above: Performed By: #### E RUR #### [facility] [address] [place] [address] Dr. Mirza Sadler EO # 0.2 103/ul Normal 0.0-0.7 [facility] Comment on above: Performed By: #### E RUR #### [facility] [address] [place] [address] Dr. Mirza Sadler Eosinophils/100 WBC (Bld) 1.3 % Normal 0.9-7.0 [facility] Comment on above: Performed By: #### E RUR #### [facility] [address] [place] [address] Dr. Mirza Sadler Erythrocyte distribution width (RBC) [Ratio] 14.6 % Normal 11.0-15.0 [facility] Comment on above: Performed By: #### E RUR #### [facility] [address] [place] [address] Dr. Mirza Sadler Hematocrit (Bld) [Volume fraction] 43.1 % Normal 42.0-54.0 [facility] Comment on above: Performed By: #### E RUR #### [facility] [address] [place] [address] Dr. Mirza Sadler Hemoglobin (Bld) [Mass/Vol] 14.2 g/dL Normal 14.0-18.0 [facility] Comment on above: Performed By: #### E RUR #### [facility] [address] [place] [address] Dr. Mirza Sadler IG # 0.07 10e3/ul Critically high 0.00-0.03 [facility] Comment on above: Performed By: #### E RUR #### [facility] [address] [place] [address] Dr. Mirza Sadler IG % 0.5 % Normal 0.0-0.5 [facility] Comment on above: Performed By: #### E RUR #### [facility] [address] [place] [address] Dr. Mirza Sadler LYMPH # 1.3 103/ul Normal 1.2-3.8 [facility] Comment on above: Performed By: #### E RUR #### [facility] [address] [place] [address] Dr. Mirza Sadler Lymphocytes/100 WBC (Bld) 8.6 % Critically low 20.5-60.0 [facility] Comment on above: Performed By: #### E RUR #### [facility] [address] [place] [address] Dr. Mirza Sadler MANUAL DIFF REQ NO Normal [facility] Comment on above: Performed By: #### E RUR #### [facility] [address] [place] [address] Dr. Mirza Sadler MCH (RBC) [Entitic mass] 29.3 pg Normal 25.9-34.0 [facility] Comment on above: Performed By: #### E RUR #### [facility] [address] [place] [address] Dr. Mirza Sadler MCHC (RBC) [Mass/Vol] 32.9 g/dL Normal 29.9-35.2 [facility] Comment on above: Performed By: #### E RUR #### [facility] [address] [place] [address] Dr. Mirza Sadler MCV (RBC) [Entitic vol] 88.9 fL Normal 80.0-94.0 [facility] Comment on above: Performed By: #### E RUR #### [facility] [address] [place] [address] Dr. Mirza Sadler MONO # 0.7 103/ul Normal 0.3-0.8 [facility] Comment on above: Performed By: #### E RUR #### [facility] [address] [place] [address] Dr. Mirza Sadler Monocytes/100 WBC (Bld) 4.3 % Normal 1.7-12.0 [facility] Comment on above: Performed By: #### E RUR #### [facility] [address] [place] [address] Dr. Mirza Sadler NEUT # 12.8 103/ul Critically high 1.4-6.5 [facility] Comment on above: Performed By: #### E RUR #### [facility] [address] [place] [address] Dr. Mirza Sadler Neutrophils/100 WBC (Bld) 84.8 % Critically high 43.0-75.0 [facility] Comment on above: Performed By: #### E RUR #### [facility] [address] [place] [address] Dr. Mirza Sadler Platelet mean volume (Bld) [Entitic vol] 9.9 fL Normal 9.5-13.5 [facility] Comment on above: Performed By: #### E RUR #### [facility] [address] [place] [address] Dr. Mirza Sadler PLT 201 103/ul Normal 150-450 [facility] Comment on above: Performed By: #### E RUR #### [facility] [address] [place] [address] Dr. Mirza Sadler RBC 4.85 106/ul Normal 4.70-6.10 [facility] Comment on above: Performed By: #### E RUR #### [facility] [address] [place] [address] Dr. Mirza Sadler WBC 15.0 103/ul Critically high 4.0-11.0 [facility] Comment on above: Performed By: #### E RUR #### [facility] [address] [place] [address] Dr. Mirza Sadler CULTURE BLOODon 03-11-2022 Microscopic examination of blood, culture Culture Observations: NO GROWTH AT 5 DAYS. Normal [facility] Comment on above: Performed By: #### H STROPN #### [facility] [address] [place] [address] Dr. Mirza Sadler Covid-19 PCR (CVDTB)on 03-01 SARS-CoV-2 (COVID-19) RNA RAMO+probe Ql (Unsp spec) Not detected Normal NOT DETECTED [facility] Comment on above: Result [...] for this test is supported by the [place] of Health and Human Service's declaration that [...] used). Performed By: #### H STROPN #### [facility] [address] [place] [address] Dr. Mirza Sadler ER URINE PROFILEon 2 Bilirubin Ql (U) Negative Normal NEGATIVE [facility] Comment on above: Performed By: #### E RUR #### [facility] [address] [place] [address] Dr. Mirza Sadler Clarity (U) CLEAR Normal CLEAR [facility] Comment on above: Performed By: #### E RUR #### [facility] [address] [place] [address] Dr. Mirza Sadler Color (U) LT. YELLOW Normal YELLOW [facility] Comment on above: Performed By: #### E RUR #### [facility] [address] [place] [address] Dr. Mirza Sadelr ERUAHD A micrscopic examina tion will be performed if indicated. Normal [facility] Comment on above: Performed By: #### E RUR #### [facility] [address] [place] [address] Dr. Mirza Sadler Glucose Ql (U) >1000 Abnormal NEGATIVE [facility] Comment on above: Performed By: #### E RUR #### [facility] [address] [place] [address] Dr. Mirza Sadler Hemoglobin Ql (U) Negative Normal NEGATIVE [facility] Comment on above: Performed By: #### E RUR #### [facility] [address] [place] [address] Dr. Mirza Sadler Ketones Ql (U) 15 mg/dl Abnormal NEGATIVE [facility] Comment on above: Performed By: #### E RUR #### [facility] [address] [place] [address] Dr. Mriza Sadler LEUKOCYTES Negative Normal NEGATIVE [facility] Comment on above: Performed By: #### E RUR #### [facility] [address] [place] [address] Dr. Mirza Sadler Nitrite Ql (U) Negative Normal NEGATIVE [facility] Comment on above: Performed By: #### E RUR #### [facility] [address] [place] [address] Dr. Mirza Sadler pH (U) 5.0 [pH] Normal 5-9 [facility] Comment on above: Performed By: #### E RUR #### [facility] [address] [place] [address] Dr. Mirza Sadler SPEC GRAVITY 1.020 Normal 1.005-<=1. 025 [facility] Comment on above: Performed By: #### E RUR #### [facility] [address] [place] [address] Dr. Mirza Sadler UA PROTEIN TRACE Normal NEGATIVE/ TRACE [facility] Comment on above: Performed By: #### E RUR #### [facility] [address] [place] [address] Dr. Mirza Sadler UR MICRO IND NOT INDICATED Normal [facility] Comment on above: Performed By: #### E RUR #### [facility] [address] [place] [address] Dr. Mirza Sadler Urobilinogen Qn (U) 0.2 {Luisito'U}/dL Normal 0.2 - 1. 0 [facility] Comment on above: Performed By: #### E RUR #### [facility] [address] [place] [address] Dr. Mirza Sadler POINT OF CARE GLUCOSEon 03-01 Glucose [Mass/Vol] 161 mg/dL Critically high 74-106 [facility] Comment on above: Performed By: #### P T, PTT #### [facility] [address] [place] [address] Dr. Mirza Sadler PROF 14(COMP METB)on 022 Albumin [Mass/Vol] 4.3 g/dL Normal 3.4-5.0 [facility] Comment on above: Performed By: #### P T, PTT #### [facility] [address] [address] [address] Mirza Sadler Albumin/Globulin [Mass ratio] 1.1 {ratio} Normal [facility] Comment on above: Performed By: #### P T, PTT #### [facility] [address] [address] [address] Mirza Sadler ALP [Catalytic activity/Vol] 156 U/L Critically high 46-116 [facility] Comment on above: Performed By: #### P T, PTT #### [facility] [address] [address] [address] Mirza Sadler ALT [Catalytic activity/Vol] 24 U/L Normal 16-63 [facility] Comment on above: Performed By: #### P T, PTT #### [facility] [address] [place] [address] Dr. Mirza Sadler Anion gap [Moles/Vol] 16.7 mmol/L Normal [facility] Comment on above: Performed By: #### P T, PTT #### [facility] [address] [address] [address] Mirza Sadler AST [Catalytic activity/Vol] 21 U/L Normal 15-37 [facility] Comment on above: Performed By: #### P T, PTT #### [facility] [address] [place] [address] Dr. Mirza Sadler Bilirubin [Mass/Vol] 1.1 mg/dL Critically high 0.2-1.0 [facility] Comment on above: Performed By: #### P T, PTT #### [facility] [address] [address] [address] Mirza Sadler Calcium [Mass/Vol] 8.8 mg/dL Normal 8.5-10.1 [facility] Comment on above: Performed By: #### P T, PTT #### [facility] [address] [address] [address] Mirza Sadler Chloride [Moles/Vol] 105 mmol/L Normal 98-107 [facility] Comment on above: Performed By: #### P T, PTT #### [facility] [address] [address] [address] Mirza Sadler CO2 [Moles/Vol] 25.0 mmol/L Normal 21.0-32.0 [facility] Comment on above: Performed By: #### P T, PTT #### [facility] [address] [address] [address] Mirza Sadler Creatinine [Mass/Vol] 1.57 mg/dL Critically high 0.70-1.30 [facility] Comment on above: Performed By: #### P T, PTT #### [facility] [address] [address] [address] Mirza Sadler EGFR-AF ISRAELI 53 mL/min/1.73m2 Critically low >=60 [facility] Comment on above: Performed By: #### P T, PTT #### [facility] [address] [place] [address] Dr. Mirza Sadler EGFR-NON AF ISRAELI 44 mL/min/1.73m2 Critically low >=60 [facility] Comment on above: Performed By: #### P T, PTT #### [facility] [address] [address] [address] Mirza Sadler Globulin (S) [Mass/Vol] 3.9 g/dL Normal [facility] Comment on above: Performed By: #### P T, PTT #### [facility] [address] [address] [address] Mirza Sadler Glucose [Mass/Vol] 188 mg/dL Critically high 74-106 [facility] Comment on above: Performed By: #### P T, PTT #### [facility] [address] [address] [address] Mirza Sadler Potassium [Moles/Vol] 3.7 mmol/L Normal 3.5-5.1 [facility] Comment on above: Performed By: #### P T, PTT #### [facility] [address] [address] [address] Mirza Sadler Protein [Mass/Vol] 8.2 g/dL Normal 6.4-8.2 [facility] Comment on above: Performed By: #### P T, PTT #### [facility] [address] [place] [address] Dr. Mirza Sadler Sodium [Moles/Vol] 143 mmol/L Normal 136-145 [facility] Comment on above: Performed By: #### P T, PTT #### [facility] [address] [place] [address] Dr. Mirza Sadler Urea nitrogen [Mass/Vol] 20.0 mg/dL Critically high 7.0-18.0 [facility] Comment on above: Performed By: #### P T, PTT #### [facility] [address] [place] [address] Dr. Mirza aSdler Urea nitrogen/Creatinine [Mass ratio] 12.7 mg/mg Normal [facility] Comment on above: Performed By: #### P T, PTT #### [facility] [address] [place] [address] Dr. Mirza Sadler RESPIRATORY PANEL PLUSon Adenovirus Not detected Normal NOT DETECTED [facility] Comment on above: Performed By: #### P T, PTT #### [facility] [address] [place] [address] Dr. Mirza Ball Parapertusis Not detected Normal NOT DETECTED [facility] Comment on above: Performed By: #### P T, PTT #### [facility] [address] [place] [address] Dr. Mirza Ball Pertussis Not detected Normal NOT DETECTED [facility] Comment on above: Performed By: #### P T, PTT #### [facility] [address] [place] [address] Dr. Mirza Sadler Chlamydia Pneumoniae Not detected Normal NOT DETECTED [facility] Comment on above: Performed By: #### P T, PTT #### [facility] [address] [place] [address] Dr. Mirza Sadler Coronavirus 229E Not detected Normal NOT DETECTED [facility] Comment on above: Performed By: #### P T, PTT #### [facility] [address] [place] [address] Dr. Mirza Sadler Coronavirus HKU1 Not detected Normal NOT DETECTED [facility] Comment on above: Performed By: #### P T, PTT #### [facility] [address] [place] [address] Dr. Mirza Sadler Coronavirus NL63 Not detected Normal NOT DETECTED [facility] Comment on above: Performed By: #### P T, PTT #### [facility] [address] [place] [address] Dr. Mirza Sadler Coronavirus OC43 Not detected Normal NOT DETECTED [facility] Comment on above: Performed By: #### P T, PTT #### [facility] [address] [place] [address] Dr. Mirza Sadler Influenza A H1 2009 Not detected Normal NOT DETECTED [facility] Comment on above: Performed By: #### P T, PTT #### [facility] [address] [place] [address] Dr. Mirza Sadler Influenza A H3 Not detected Normal NOT DETECTED [facility] Comment on above: Performed By: #### P T, PTT #### [facility] [address] [place] [address] Dr. Mirza Sadler Influenza B Not detected Normal NOT DETECTED [facility] Comment on above: Performed By: #### P T, PTT #### [facility] [address] [place] [address] Dr. Mirza Sadler Metapneumovirus Not detected Normal NOT DETECTED [facility] Comment on above: Performed By: #### P T, PTT #### [facility] [address] [place] [address] Dr. Mirza Sadler Mycoplas. Pneumoniae Not detected Normal NOT DETECTED [facility] Comment on above: Performed By: #### P T, PTT #### [facility] [address] [place] [address] Dr. Mirza Sadler Parainfluenza 1 Not detected Normal NOT DETECTED [facility] Comment on above: Performed By: #### P T, PTT #### [facility] [address] [place] [address] Dr. Mirza Sadler Parainfluenza 2 Not detected Normal NOT DETECTED [facility] Comment on above: Performed By: #### P T, PTT #### [facility] [address] [place] [address] Dr. Mirza Sadler Parainfluenza 3 Not detected Normal NOT DETECTED [facility] Comment on above: Performed By: #### P T, PTT #### [facility] [address] [place] [address] Dr. Mirza Sadler Parainfluenza 4 Not detected Normal NOT DETECTED [facility] Comment on above: Performed By: #### P T, PTT #### [facility] [address] [place] [address] Dr. Mirza Sadler Rhino/Enterovirus Not detected Normal NOT DETECTED [facility] Comment on above: Performed By: #### P T, PTT #### [facility] [address] [place] [address] Dr. Mirza Sadler RP2 Header 1 RESPIRATORY PANEL: VIRUSES Normal [facility] Comment on above: Performed By: #### P T, PTT #### [facility] [address] [place] [address] Dr. Mirza Sadler RP2 Header 2 RESPIRATORY PANEL: BACTERIA Normal [facility] Comment on above: Performed By: #### P T, PTT #### [facility] [address] [place] [address] Dr. Mirza Sadler RSV Not detected Normal NOT DETECTED [facility] Comment on above: Performed By: #### P T, PTT #### [facility] [address] [place] [address] Dr. Mirza Sadler SARS-CoV-2 (COVID-19) RNA RAMO+probe Ql (Unsp spec) Not detected Normal NOT DETECTED [facility] Comment on above: Performed By: #### P T, PTT #### [facility] [address] [place] [address] Dr. Mirza Sadler TROPONIN, HIGH SENSITIVITYon 03-11-2022 HSTROP 41.0 pg/mL Normal 4.0-76.1 [facility] Comment on above: Result Comment: CUT- OFF POINTS HAVE BEEN ESTABLISHED BASED ON THE FOURTH UNIVERSAL DEFINITIONS OF MYOCARDIAL INFARCTION. THE UPPER REFERENCE LIMIT (URL) OF TROPONIN, DEFINED THE 99TH PERCENTILE OF cTnI DISTRIBUTION IN A REFERENCE POPULATION, HAS BEEN CONFIRMED THE DECISION THRESHOLD FOR OK DIAGNOSIS. Performed By: #### P T, PTT #### [facility] [address] [address] [address] Mirza Sadler HSTROP 33723.8 pg/mL Critically high 4.0-76.1 [facility] Comment on above: Result Comment: CUT- OFF POINTS HAVE BEEN ESTABLISHED BASED ON THE FOURTH UNIVERSAL DEFINITIONS OF MYOCARDIAL INFARCTION. THE UPPER REFERENCE LIMIT (URL) OF TROPONIN, DEFINED THE 99TH PERCENTILE OF cTnI DISTRIBUTION IN A REFERENCE POPULATION, HAS BEEN CONFIRMED THE DECISION THRESHOLD FOR OK DIAGNOSIS. Performed By: #### C MP, CMADM #### [facility] [address] [address] [address] Mirza Sadler XR CHEST 1 Von [...] by: Kayden ACEVES Date: 2022-03-11 05:42 Normal [facility] NM MUGAon 03-09-2022 NM MUGA EXAMINATION: [...] by: SHANNON LANDIS Date: 2022-03-09 12:[address] [facility] [address] CHEST WO CONon 03-02-2022 CT [...] by: HIGINIO FLANAGAN Date: 2022-03-02 08:52 Normal [facility] Creatinine and Glomerular fi ltration rate.predicted panel (S/P/Bld)Ordered By: Gagan Shahid on 01-17-2022 Creatinine [Mass/Vol] 1.53 mg/dL 0.64-1.27 [facility] Estimated glomerular filtrat ion rate (GFR) non- AmericanOrdered By: Gagan Shahid on 01-17-2022 GFR/1.73 sq M.predicted among non-blacks MDRD (S/P/Bld) [Vol rate/Area] 45 mL/Min [facility] Glucose Glucometer (BldC) [M ass/Vol]Ordered By: Gagan Shahid on 01-17-2022 Glucose [Mass/Vol] 178 mg/dL [facility] Comment on above: Random Glucose Refer ence Range is dependent on time and content of last meal. Glucose of more than 200 mg/dL in a nonstressed, ambulatory subject supports the diagnosis of Diabetes Mellitus. No Panel InformationOrdered By: Gagan Shahid on 01-17-2022 Estimated GFR () 55 mL/Min [facility] Comment on above: GFR estimated refere nce range: According to KDOQI guidelines, <60 ml/min/1.73m2 is sufficient to diagnose a patient with chronic kidney disease. Pharmacy Creatinine Clearance (Chem 42.00 [facility] Serum or plasma anion gap de terminationOrdered By: Gagan Shahid on 01-17-2022 Anion gap [Moles/Vol] 12.0 mmol/L 6.0-15.0 [facility] Serum or plasma calcium radha urement (mass/volume)Ordered By: Gagan Shahid on 01-17-2022 Calcium [Mass/Vol] 9.0 mg/dL 8.2-10.2 [facility] Serum or plasma chloride shanae surement (moles/volume)Ordered By: Gagan Shahid on 01-17-2022 Chloride [Moles/Vol] 107 mmol/L 95-114 [facility] Serum or plasma glucose radha urement (mass/volume)Ordered By: Gagan Shahid on 01-17-2022 Glucose [Mass/Vol] 142 mg/dL 70-100 [facility] Comment on above: ADA recommended refe rence rangeRandom Glucose Reference Range is dependent on time and content of last meal. Glucose of more than 200 mg/dL in a nonstressed, ambulatory subject supports the diagnosis of Diabetes Mellitus. Serum or plasma potassium me asurement (moles/volume)Ordered By: Gagan Shahid on 01-17-2022 Potassium [Moles/Vol] 3.5 mmol/L 3.5-5.1 [facility] Serum or plasma sodium measu rement (moles/volume)Ordered By: Gagan Shahid on 01-17-2022 Sodium [Moles/Vol] 137 mmol/L 136-146 [facility] Serum or plasma total carbon dioxide measurement (moles/volume)Ordered By: Gagan Shahid on 01-17-2022 CO2 [Moles/Vol] 21.5 mmol/L 22.0-30.0 [facility] Serum or plasma urea nitroge n measurement (mass/volume)Ordered By: Gagan Shahid on 01-17-2022 Urea nitrogen [Mass/Vol] 24 mg/dL 9- [facility] Activated partial thrombopla stin time (aPTT) in platelet poor plasma by coagulation aOrdered By: Gagan Shahid on 01-16-2022 aPTT Coag (PPP) [Time] 42.1 s 25.1-36.5 [facility] Basophils Auto (Bld) [#/Vol] Ordered By: Gagan Shahid on 01-16-2022 Basophils (Bld) [#/Vol] 0.0 10*3/uL 0.0-0.2 [facility] Basophils/100 WBC Auto (Bld) Ordered By: Gagan Shahid on 01-16-2022 Basophils/100 WBC (Bld) 0.5 % . [facility] Creatine kinase [Enzymatic a ctivity/volume] in Serum or PlasmaOrdered By: Gagan Shahid on 01-16-2022 CK [Catalytic activity/Vol] 92 U/L 22-269 [facility] Eosinophils Auto (Bld) [#/Vo l]Ordered By: Gagan Shahid on 01-16-2022 Eosinophils (Bld) [#/Vol] 0.2 10*3/uL 0.0-0.45 [facility] Eosinophils/100 WBC Auto (Bl d)Ordered By: Gagan Shahid on 01-16-2022 Eosinophils/100 WBC (Bld) 2.4 % . [facility] Erythrocyte distribution wid th Auto (RBC) [Ratio]Ordered By: Gagan Shahid on 01-16-2022 Erythrocyte distribution width (RBC) [Ratio] 14.6 % 12.0-14.8 [facility] Hematocrit Auto (Bld) [Volum e fraction]Ordered By: Gagan Shahid on 01-16-2022 Hematocrit (Bld) [Volume fraction] 43.4 % 38.8-50.0 [facility] Hemoglobin [Mass/volume] in BloodOrdered By: Gagan Shahid on 01-16-2022 Hemoglobin (Bld) [Mass/Vol] 14.4 g/dL 13.0-17.0 [facility] - Chemistry and C hemistry - challengeOrdered By: Gagan Shahid on 01-16-2022 Magnesium [Mass/Vol] 1.9 mg/dL 1.6-2.6 [facility] - CoagulationOrde red By: Gagan Shahid on 01-16-2022 PT Coag (PPP) [Time] 15.7 s 9.0-12.9 [facility] - Hematology and Cell countsOrdered By: Gagan Shahid on 01-16-2022 Nucleated RBC/100 WBC (Bld) [Ratio] 0.1 % 0-0.5 [facility] Leukocytes [#/volume] in Blo od by Automated countOrdered By: Gagan Shahid on 01-16-2022 WBC (Bld) [#/Vol] 8.2 10*3/uL 4.5-11.0 [facility] Lymphocytes Auto (Bld) [#/Vo l]Ordered By: Gagan Shahid on 01-16-2022 Lymphocytes (Bld) [#/Vol] 1.6 10*3/uL 1.00-4.8 [facility] Lymphocytes/100 WBC Auto (Bl d)Ordered By: Gagan Shahid on 01-16-2022 Lymphocytes/100 WBC (Bld) 19.5 % . [facility] MCH Auto (RBC) [Entitic mass ]Ordered By: Gagan Sahhid on 01-16-2022 MCH (RBC) [Entitic mass] 29.4 pg 27.5-35.2 [facility] MCHC Auto (RBC) [Mass/Vol]Or dered By: Gagan Shahid on 01-16-2022 MCHC (RBC) [Mass/Vol] 33.2 g/dL 32.5-35.6 [facility] MCV Auto (RBC) [Entitic vol] Ordered By: Gagan Shahid on 01-16-2022 MCV (RBC) [Entitic vol] 88.5 fL 83.5-101 [facility] Monocytes Auto (Bld) [#/Vol] Ordered By: Gagan Shahid on 01-16-2022 Monocytes (Bld) [#/Vol] 0.8 10*3/uL 0.0-0.8 [facility] Monocytes/100 WBC Auto (Bld) Ordered By: Gagan Shahid on 01-16-2022 Monocytes/100 WBC (Bld) 9.1 % . [facility] Neutrophils Auto (Bld) [#/Vo l]Ordered By: Gagan Shahid on 01-16-2022 Neutrophils (Bld) [#/Vol] 5.6 10*3/uL 1.8-7.7 [facility] Neutrophils/100 WBC Auto (Bl d)Ordered By: Gagan Shahid on 01-16-2022 Neutrophils/100 WBC (Bld) 68.5 % . [facility] No Panel InformationOrdered By: Gagan Shahid on 01-16-2022 Bedside Glucose Comment Glu2: cleaned meter [facility] Platelet mean volume Auto (B ld) [Entitic vol]Ordered By: Gagan Shahid on 01-16-2022 Platelet mean volume (Bld) [Entitic vol] 8.4 fL 6.6-10.1 [facility] Platelet poor plasma interna tional normalized ratio (INR) by coagulation assay (relatOrdered By: Gagan Shahid on 01-16-2022 INR Coag (PPP) [Relative time] 1.4 {INR} [facility] Comment on above: INR Therapeutic Rang e [...] 01-16-2022 Platelets (Bld) [#/Vol] 178 10*3/uL 150-450 [facility] RBC Auto (Bld) [#/Vol]Ordere d By: Gagan Shahid on 01-16-2022 RBC (Bld) [#/Vol] 4.90 10*6/uL 3.90-5.60 [facility] Serum or plasma creatine kin ase MB (CKMB)/total creatine kinase (CK) ratio by calculaOrdered By: Gagan Shahid on 01-16-2022 CK.MB Calc [Catalytic fraction] 3.2 % 0.00-2.50 [facility] Serum or plasma creatine kin ase MB measurement (mass/volume)Ordered By: Gagan Shahid on 01-16-2022 CK.MB [Mass/Vol] 3.0 ng/mL 0.6-6.3 [facility] Troponin I.cardiac [Mass/vol ume] in Serum or Plasma by High sensitivity methodOrdered By: Gagan Shahid on 01-16-2022 Troponin I.cardiac High sensitivity method [Mass/Vol] 525 pg/mL 0-20 [facility] Comment on above: Critical valueresult calledat 1844 on 01/16/22 BNPon 01-15-2022 Natriuretic peptide B (Bld) [Mass/Vol] 1012.0 pg/mL Critically high <=900.0 [facility] Comment on above: Performed By: #### B INDUSTRIAL DESIGNER #### [facility] [address] [place] [address] Dr. Mirza Sadler CARDIAC PARUL ADMITon 022 CK [Catalytic activity/Vol] 93 U/L Normal 39-308 [facility] Comment on above: Performed By: #### C TEGAN MARIN #### [facility] [address] [address] [address] Mirza Sadler CK.MB [Mass/Vol] 1.67 ng/mL Normal <=3.60 [facility] Comment on above: Performed By: #### C TEGAN MARIN #### [facility] [address] [address] [address] Mirza Sadler HSTROP 17.1 pg/mL Normal 4.0-76.1 [facility] Comment on above: Result Comment: CUT- OFF POINTS HAVE BEEN ESTABLISHED BASED ON THE FOURTH UNIVERSAL DEFINITIONS OF MYOCARDIAL INFARCTION. THE UPPER REFERENCE LIMIT (URL) OF TROPONIN, DEFINED THE 99TH PERCENTILE OF cTnI DISTRIBUTION IN A REFERENCE POPULATION, HAS BEEN CONFIRMED THE DECISION THRESHOLD FOR OK DIAGNOSIS. Performed By: #### C TANIA, CMADM #### [facility] [address] [place] [address] Dr. Mirza Sadler RACHEL 63 ng/mL Normal 16-96 [facility] Comment on above: Performed By: #### C TANIA, CMADM #### [facility] [address] [place] [address] Dr. Mirza Sadler CBC AUTO DIFFon 01-15-2022 BASO # 0.1 103/ul Normal 0.0-0.1 [facility] Comment on above: Performed By: #### E RUR #### [facility] [address] [place] [address] Dr. Mirza Sadler Basophils/100 WBC (Bld) 0.9 % Normal 0.2-2.0 [facility] Comment on above: Performed By: #### E RUR #### [facility] [address] [place] [address] Dr. Mirza Sadler EO # 0.3 103/ul Normal 0.0-0.7 [facility] Comment on above: Performed By: #### E RUR #### [facility] [address] [place] [address] Dr. Mirza Sadler Eosinophils/100 WBC (Bld) 3.1 % Normal 0.9-7.0 [facility] Comment on above: Performed By: #### E RUR #### [facility] [address] [place] [address] Dr. Mirza Sadler Erythrocyte distribution width (RBC) [Ratio] 14.2 % Normal 11.0-15.0 [facility] Comment on above: Performed By: #### E RUR #### [facility] [address] [place] [address] Dr. Mirza Sadler Hematocrit (Bld) [Volume fraction] 44.4 % Normal 42.0-54.0 [facility] Comment on above: Performed By: #### E RUR #### [facility] [address] [place] [address] Dr. Mirza Sadler Hemoglobin (Bld) [Mass/Vol] 14.4 g/dL Normal 14.0-18.0 [facility] Comment on above: Performed By: #### E RUR #### [facility] [address] [place] [address] Dr. Mirza Sadler IG # 0.03 10e3/ul Normal 0.00-0.03 [facility] Comment on above: Performed By: #### E RUR #### [facility] [address] [place] [address] Dr. Mirza Sadler IG % 0.3 % Normal 0.0-0.5 [facility] Comment on above: Performed By: #### E RUR #### [facility] [address] [place] [address] Dr. Mirza Sadler LYMPH # 1.6 103/ul Normal 1.2-3.8 [facility] Comment on above: Performed By: #### E RUR #### [facility] [address] [place] [address] Dr. Mirza Sadler Lymphocytes/100 WBC (Bld) 16.8 % Critically low 20.5-60.0 [facility] Comment on above: Performed By: #### E RUR #### [facility] [address] [place] [address] Dr. Mirza Sadler MANUAL DIFF REQ NO Normal [facility] Comment on above: Performed By: #### E RUR #### [facility] [address] [place] [address] Dr. Mirza Sadler MCH (RBC) [Entitic mass] 29.4 pg Normal 25.9-34.0 [facility] Comment on above: Performed By: #### E RUR #### [facility] [address] [place] [address] Dr. Mirza Sadler MCHC (RBC) [Mass/Vol] 32.4 g/dL Normal 29.9-35.2 [facility] Comment on above: Performed By: #### E RUR #### [facility] [address] [place] [address] Dr. Mirza Sadler MCV (RBC) [Entitic vol] 90.6 fL Normal 80.0-94.0 [facility] Comment on above: Performed By: #### E RUR #### [facility] [address] [place] [address] Dr. Mirza Sadler MONO # 0.5 103/ul Normal 0.3-0.8 [facility] Comment on above: Performed By: #### E RUR #### [facility] [address] [place] [address] Dr. Mirza Sadler Monocytes/100 WBC (Bld) 5.9 % Normal 1.7-12.0 [facility] Comment on above: Performed By: #### E RUR #### [facility] [address] [place] [address] Dr. Mirza Sadler NEUT # 6.7 103/ul Critically high 1.4-6.5 [facility] Comment on above: Performed By: #### E RUR #### [facility] [address] [place] [address] Dr. Mirza Sadler Neutrophils/100 WBC (Bld) 73.0 % Normal 43.0-75.0 [facility] Comment on above: Performed By: #### E RUR #### [facility] [address] [place] [address] Dr. Mirza Sadler Platelet mean volume (Bld) [Entitic vol] 10.0 fL Normal 9.5-13.5 [facility] Comment on above: Performed By: #### E RUR #### [facility] [address] [place] [address] Dr. Mirza Sadler PLT 190 103/ul Normal 150-450 [facility] Comment on above: Performed By: #### E RUR #### [facility] [address] [place] [address] Dr. Mirza Sadler RBC 4.90 106/ul Normal 4.70-6.10 [facility] Comment on above: Performed By: #### E RUR #### [facility] [address] [place], [place] [address] Dr. Mirza Sadler WBC 9.2 103/ul Normal 4.0-11.0 [facility] Comment on above: Performed By: #### E RUR #### [facility] [address] [place], [place] [address] CHEST WO CONon [...] HIGINIO FLANAGAN Date: 2022-01-15 08:19 Normal [facility] CULTURE BLOODon 10-17-2022 Microscopic examination of blood, culture Culture Observations: NO GROWTH AT 5 DAYS. Normal [facility] Comment on above: Performed By: #### H STROPN #### [facility] [address] [place] [address] Dr. Mirza Sadler Performed By: #### B LDCX1 #### [facility] [address] [place] [address] Dr. Mirza Sadler [facility] SARS-CoV-2 (COVID-19) RNA RAMO+probe Ql (Unsp spec) Not detected Normal NOT DETECTED [facility] Comment on above: Result [...] for this test is supported by the [employer] Curer of Health and Human Service's declaration that [...] longer be used). Performed By: #### B INDUSTRIAL DESIGNER #### [facility] [address] [place] [address] Dr. Mirza Sadler ER URINE PROFILEon 2 Bilirubin Ql (U) Negative Normal NEGATIVE [facility] Comment on above: Performed By: #### C TEGAN MARIN #### [facility] [address] [place] [address] Dr. Mirza Sadler Clarity (U) CLEAR Normal CLEAR [facility] Comment on above: Performed By: #### C TEGAN MARIN #### [facility] [address] [place] [address] Dr. Mirza Sadler Color (U) LT. YELLOW Normal YELLOW [facility] Comment on above: Performed By: #### C TANIA, CMADM #### [facility] [address] [place] [address] [address] Mirza BUSTILLO A micrscopic examina tion will be performed if indicated. Normal [facility] Comment on above: Performed By: #### C TANIA, CMADM #### [facility] [address] [place] [address] [address] Mirza Sadler Glucose Ql (U) >1000 Abnormal NEGATIVE [facility] Comment on above: Performed By: #### C TANIA, CMADM #### [facility] [address] [place] [address] [address] Mirza Sadler Hemoglobin Ql (U) Negative Normal NEGATIVE [facility] [place] [facility] Comment on above: Performed By: #### C TANIA, CMADM #### [facility] [address] [place] [address] Dr. Mirza Sadler Ketones Ql (U) TRACE Abnormal NEGATIVE [facility] Comment on above: Performed By: #### C TANIA, CMADM #### [facility] [address] [place] [address] Dr. Mirza Sadler LEUKOCYTES Negative Normal NEGATIVE [facility] Comment on above: Performed By: #### C TANIA, CMADM #### [facility] [address] [place] [address] Dr. Mirza Sadler Nitrite Ql (U) Negative Normal NEGATIVE [facility] Comment on above: Performed By: #### C TANIA, CMADM #### [facility] [address] [place] [address] [address] Mirza Sadler pH (U) 5.5 [pH] Normal 5-9 [facility] Comment on above: Performed By: #### C TANIA, CMADM #### [facility] [address] [place] [address] Dr. Mirza Sadler SPEC GRAVITY 1.020 Normal 1.005-<=1. 025 [facility] Comment on above: Performed By: #### C TANIA, CMADM #### [facility] [address] [place] [address] Dr. Mirza Sadler UA PROTEIN TRACE Normal NEGATIVE/ TRACE [facility] Comment on above: Performed By: #### C MP, CMADM #### [facility] [address] [place] [address] Dr. Mirza Sadler UR MICRO IND NOT INDICATED Normal [facility] Comment on above: Performed By: #### C MP, CMADM #### [facility] [address] [place] [address] Dr. Mirza Sadler Urobilinogen Qn (U) 0.2 {Luisito'U}/dL Normal 0.2 - 1. 0 [facility] Comment on above: Performed By: #### C TANIA, CMADM #### [facility] [address] [place] [address] Dr. Mirza Sadler LACTATE/LACTIC ACIDon 2021 Lactate [Moles/Vol] 0.8 mmol/L Normal 0.4-1.9 [facility] Comment on above: Performed By: #### P T, PTT #### [facility] [address] [place] [address] Dr. Mirza Sadler PROF 14(COMP METB)on 022 Albumin [Mass/Vol] 4.4 g/dL Normal 3.4-5.0 [facility] Comment on above: Performed By: #### C TANIA, CMADM #### [facility] [address] [place] [address] Dr. Mirza Sadler Albumin/Globulin [Mass ratio] 1.3 {ratio} Normal [facility] Comment on above: Performed By: #### C MP, CMADM #### [facility] [address] [place] [address] Dr. Mirza Sadler ALP [Catalytic activity/Vol] 155 U/L Critically high 46-116 [facility] Comment on above: Performed By: #### C MP, CMADM #### [facility] [address] [place] [address] Dr. Mirza Sadler ALT [Catalytic activity/Vol] 27 U/L Normal 16-63 [facility] Comment on above: Performed By: #### C TANIA, CMADM #### [facility] [address] [address] [address] Mirza Sadler Anion gap [Moles/Vol] 14.9 mmol/L Normal [facility] Comment on above: Performed By: #### C MP, CMADM #### [facility] [address] [place] [address] [address] Mirza Sadler AST [Catalytic activity/Vol] 22 U/L Normal 15-37 [facility] Comment on above: Performed By: #### C MP, CMADM #### [facility] [address] [place] [address] [address] Mirza Sadler Bilirubin [Mass/Vol] 0.8 mg/dL Normal 0.2-1.0 [facility] Comment on above: Performed By: #### C TANIA, CMADM #### [facility] [address] [place] [address] [address] Mirza Sadler Calcium [Mass/Vol] 8.8 mg/dL Normal 8.5-10.1 [facility] Comment on above: Performed By: #### C TANIA, CMADM #### [facility] [address] [place] [address] [address] Mirza Sadler Chloride [Moles/Vol] 106 mmol/L Normal 98-107 [facility] Comment on above: Performed By: #### C TANIA, CMADM #### [facility] [address] [place] [address] [address] Mirza Sadler CO2 [Moles/Vol] 23.9 mmol/L Normal 21.0-32.0 [facility] Comment on above: Performed By: #### C MP, CMADM #### [facility] [address] [place] [address] [address] Mirza Sadler Creatinine [Mass/Vol] 1.51 mg/dL Critically high 0.70-1.30 [facility] Comment on above: Performed By: #### C MP, CMADM #### [facility] [address] [place] [address] [address] Mirza Sadler EGFR-AF ISRAELI 56 mL/min/1.73m2 Critically low >=60 [facility] Comment on above: Performed By: #### C MP, CMADM #### [facility] [address] [place] [address] [address] Mirza Sadler EGFR-NON AF ISRAELI 46 mL/min/1.73m2 Critically low >=60 [facility] Comment on above: Performed By: #### C MP, CMADM #### [facility] [address] [place] [address] [address] Mirza Sadler Globulin (S) [Mass/Vol] 3.4 g/dL Normal [facility] Comment on above: Performed By: #### C MP, CMADM #### [facility] [address] [place] [address] [address] Mirza Sadler Glucose [Mass/Vol] 189 mg/dL Critically high 74-106 [facility] Comment on above: Performed By: #### C MP, CMADM #### [facility] [address] [place] [address] [address] Mirza Sadler Potassium [Moles/Vol] 3.8 mmol/L Normal 3.5-5.1 [facility] Comment on above: Performed By: #### C MP, CMADM #### [facility] [address] [place] [address] [address] Mirza Sadler Protein [Mass/Vol] 7.8 g/dL Normal 6.4-8.2 [facility] Comment on above: Performed By: #### C MP, CMADM #### [facility] [address] [place] [address] [address] Mirza Sadler Sodium [Moles/Vol] 141 mmol/L Normal 136-145 [facility] Comment on above: Performed By: #### C MP, CMADM #### [facility] [address] [place] [address] [address] Mirza Sadler Urea nitrogen [Mass/Vol] 22.0 mg/dL Critically high 7.0-18.0 [facility] Comment on above: Performed By: #### C MP, CMADM #### [facility] [address] [place] [address] [address] Mirza Sadler Urea nitrogen/Creatinine [Mass ratio] 14.6 mg/mg Normal [facility] Comment on above: Performed By: #### C MP, CMADM #### [facility] [address] [place] [address] [address] Mirza Sadler PROTIMEon 01-15-2022 INR Coag (PPP) [Relative time] 1.10 {INR} Normal [facility] Comment on above: Performed By: #### E RUR #### [facility] [address] [place] [address] [address] Mirza Sadler INR GUIDELINES SEE BELOW Normal [facility] Comment on above: Result Comment: RIVKA RED INR: 2.0 - 3.0 CONDITIONS NOT LISTED BELOW 2.5 - 3.5 FOR PROSTHETIC HEART VALVE REPLACEMENT 2.5 - 3.5 RECURRENT THROMBOSIS Performed By: #### E RUR #### [facility] [address] [place] [address] Dr. Mirza Sadler PT Coag (PPP) [Time] 11.8 s Critically high 9.0-11.6 [facility] Comment on above: Performed By: #### E RUR #### [facility] [address] [place] [address] Dr. Mirza Sadler PTTon 01-15-2022 aPTT Coag (Bld) [Time] 29.0 s Normal 22.3-36.2 [facility] Comment on above: Performed By: #### E RUR #### [facility] [address] [place] [address] Dr. Mirza Sadler TROPONIN, HIGH SENSITIVITYon 01-15-2022 HSTROP 669.3 pg/mL Critically high 4.0-76.1 [facility] Comment on above: Result Comment: CUT- OFF POINTS HAVE BEEN ESTABLISHED BASED ON THE FOURTH UNIVERSAL DEFINITIONS OF MYOCARDIAL INFARCTION. THE UPPER REFERENCE LIMIT (URL) OF TROPONIN, DEFINED THE 99TH PERCENTILE OF cTnI DISTRIBUTION IN A REFERENCE POPULATION, HAS BEEN CONFIRMED THE DECISION THRESHOLD FOR OK DIAGNOSIS. Performed By: #### H STROPN #### [facility] [address] [place] [address] Dr. Mirza Sadler HSTROP 1786.2 pg/mL Critically high 4.0-76.1 [facility] Comment on above: Result Comment: CUT- OFF POINTS HAVE BEEN ESTABLISHED BASED ON THE FOURTH UNIVERSAL DEFINITIONS OF MYOCARDIAL INFARCTION. THE UPPER REFERENCE LIMIT (URL) OF TROPONIN, DEFINED THE 99TH PERCENTILE OF cTnI DISTRIBUTION IN A REFERENCE POPULATION, HAS BEEN CONFIRMED THE DECISION THRESHOLD FOR OK DIAGNOSIS. Performed By: #### H STROFLACO #### [facility] [address] [place] [address] [address] Mirza Sadler XR CHEST 1 Von [...] by: WAYNE CASEY Date: 2022-01-15 06:42 Normal [facility] A1C HEMOGLOBINon 12-18-2021 HbA1c (Bld) [Mass fraction] 6.2 % [employer] Other Glucose - FINGER STICKon Glucose [Mass/Vol] 120 mg/dL [employer] Other HbA1c (Bld) [Mass fraction]o n 12-18-2021 A1C HEMOGLOBIN [employer] [facility] Other XR CHEST 2 Von 12-08-2021 [...] HIGINIO FLANAGAN Date: 2021-12-08 16:07 Normal [facility] PTH INTACTon 12-01-2021 PTH, Intact 15 pg/mL Normal 15-65 [facility] Comment on above: Performed By: #### C MP, CMADM #### [facility] [address] [place] [address] [address] Mirza Sadler VIT D 25-OH LABCORPon 2021 Vitamin D, 25-Hydroxy 41.2 ng/mL Normal 30.0-100.0 [facility] Comment on above: Result Comment: Cielo min D deficiency has been defined by the [place] of [employer] and an Endocrine Society practice guideline as a level of serum 25-OH vitamin D less than 20 ng/mL (1,2). The Endocrine Society went on to further define vitamin D insufficiency as a level between 21 and 29 ng/mL (2). 1. IOM ([place] of Medicine). 2010. Dietary reference intakes for calcium and D. [place]: The National Academies Press. 2. Noemy MF, Sonam [place], Flakito-Richard HERMOSILLO, et al. Evaluation, treatment, and prevention of vitamin D deficiency: an Endocrine Society clinical practice guideline. JCEM. 2010; 96(7):1911-30. Performed By: #### P T, PTT #### [facility] [address] [place] [address] [address] Mirza Sadler HEMOGRAM AND PLATELon 2021 Hematocrit (Bld) [Volume fraction] 39.9 % Critically low 42.0-54.0 [facility] Comment on above: Performed By: #### P T, PTT #### [facility] [address] [place] [address] [address] Mirza Sadler Hemoglobin (Bld) [Mass/Vol] 13.1 g/dL Critically low 14.0-18.0 [facility] Comment on above: Performed By: #### P T, PTT #### [facility] [address] [place] [address] [address] Mirza Sadler MCH (RBC) [Entitic mass] 29.5 pg Normal 25.9-34.0 [facility] Comment on above: Performed By: #### P T, PTT #### [facility] [address] [place] [address] Dr. Mirza Sadler MCHC (RBC) [Mass/Vol] 32.8 g/dL Normal 29.9-35.2 [facility] Comment on above: Performed By: #### P T, PTT #### [facility] [address] [place] [address] Dr. Mirza Sadler MCV (RBC) [Entitic vol] 89.9 fL Normal 80.0-94.0 [facility] Comment on above: Performed By: #### P T, PTT #### [facility] [address] [place] [address] Dr. Mirza Sadler PLT 182 103/ul Normal 150-450 [facility] Comment on above: Performed By: #### P T, PTT #### [facility] [address] [place] [address] Dr. Mirza Sadler RBC 4.44 106/ul Critically low 4.70-6.10 [facility] Comment on above: Performed By: #### P T, PTT #### [facility] [address] [place] [address] Dr. Mirza Sadler WBC 6.9 103/ul Normal 4.0-11.0 [facility] Comment on above: Performed By: #### P T, PTT #### [facility] [address] [place] [address] Dr. Mirza Sadler MAGNESIUMon 11-30-2021 Magnesium [Mass/Vol] 1.8 mg/dL Normal 1.8-2.4 [facility] Comment on above: Performed By: #### P T, PTT #### [facility] [address] [place] [address] Dr. Mirza Sadler RENAL FUNCTION PANELon 11-30 Albumin [Mass/Vol] 3.9 g/dL Normal 3.4-5.0 [facility] Comment on above: Performed By: #### P T, PTT #### [facility] [address] [place] [address] [address] Mirza Sadler Calcium [Mass/Vol] 9.0 mg/dL Normal 8.5-10.1 [facility] Comment on above: Performed By: #### P T, PTT #### [facility] [address] [place] [address] [address] Mirza Sadler Chloride [Moles/Vol] 107 mmol/L Normal 98-107 [facility] Comment on above: Performed By: #### P T, PTT #### [facility] [address] [address] [address] Mirza Sadler CO2 [Moles/Vol] 26.2 mmol/L Normal 21.0-32.0 [facility] Comment on above: Performed By: #### P T, PTT #### [facility] [address] [place] [address] Dr. Mirza Sadler Creatinine [Mass/Vol] 1.55 mg/dL Critically high 0.70-1.30 [facility] Comment on above: Performed By: #### P T, PTT #### [facility] [address] [place] [address] Dr. Mirza Sadler EGFR-AF ISRAELI 54 mL/min/1.73m2 Critically low >=60 [facility] Comment on above: Performed By: #### P T, PTT #### [facility] [address] [place] [address] Dr. Mirza Sadler EGFR-NON AF ISRAELI 45 mL/min/1.73m2 Critically low >=60 [facility] Comment on above: Performed By: #### P T, PTT #### [facility] [address] [place] [address] Dr. Mirza Sadler Glucose [Mass/Vol] 166 mg/dL Critically high 74-106 [facility] Comment on above: Performed By: #### P T, PTT #### [facility] [address] [place] [address] Dr. Mirza Sadler Phosphate [Mass/Vol] 3.7 mg/dL Normal 2.6-4.7 [facility] Comment on above: Performed By: #### P T, PTT #### [facility] [address] [place] [address] Dr. Mirza Sadler Potassium [Moles/Vol] 4.2 mmol/L Normal 3.5-5.1 [facility] Comment on above: Performed By: #### P T, PTT #### [facility] [address] [place] [address] Dr. Mirza Sadler Sodium [Moles/Vol] 142 mmol/L Normal 136-145 [facility] Comment on above: Performed By: #### P T, PTT #### [facility] [address] [place] [address] Dr. Mirza Sadler Urea nitrogen [Mass/Vol] 16.0 mg/dL Normal 7.0-18.0 [facility] Comment on above: Performed By: #### P T, PTT #### [facility] [address] [place] [address] Dr. Mirza Sadler UA RANDOM W/MICROSCOPICon BACTERIA NONE SEEN Normal NONE SEEN [facility] Comment on above: Performed By: #### B LDCX2 #### [facility] [address] [place] [address] Dr. Mirza Sadler Bilirubin Ql (U) Negative Normal NEGATIVE [facility] Comment on above: Performed By: #### B LDCX2 #### [facility] [address] [place] [address] Dr. Mirza Sadler CAST NONE SEEN Normal NONE SEEN [facility] Comment on above: Performed By: #### B LDCX2 #### [facility] [address] [place] [address] Dr. Mirza Sadler Clarity (U) CLEAR Normal CLEAR [facility] Comment on above: Performed By: #### B LDCX2 #### [facility] [address] [place] [address] Dr. Mirza Sadler Color (U) LT. YELLOW Normal YELLOW [facility] Comment on above: Performed By: #### B LDCX2 #### [facility] [address] [place] [address] Dr. Mirza Sadler Crystals LM Nom (Urine sed) NONE SEEN Normal NONE SEEN [facility] Comment on above: Performed By: #### B LDCX2 #### [facility] [address] [place] [address] Dr. Mirza Sadler Epithelial cells LM Ql (Urine sed) RARE Normal NONE SEEN /RARE [facility] Comment on above: Performed By: #### B LDCX2 #### [facility] [address] [place] [address] Dr. Mirza Sadler Glucose Ql (U) >1000 Abnormal NEGATIVE [facility] Comment on above: Performed By: #### B LDCX2 #### [facility] [address] [place] [address] Dr. Mirza Sadler Hemoglobin Ql (U) Negative Normal NEGATIVE [facility] Comment on above: Performed By: #### B LDCX2 #### [facility] [address] [place] [address] Dr. Mirza Sadler Ketones Ql (U) Negative Normal NEGATIVE [facility] Comment on above: Performed By: #### B LDCX2 #### [facility] [address] [place] [address] Dr. Mirza Sadler LEUKOCYTES Negative Normal NEGATIVE [facility] Comment on above: Performed By: #### B LDCX2 #### [facility] [address] [place] [address] Dr. Mirza Sadler MUCOUS NONE SEEN Normal NONE SEEN [facility] Comment on above: Performed By: #### B LDCX2 #### [facility] [address] [address] [address] Mirza Sadler Nitrite Ql (U) Negative Normal NEGATIVE [facility] Comment on above: Performed By: #### B LDCX2 #### [facility] [address] [place] [address] Dr. Mirza Sadler pH (U) 5.5 [pH] Normal 5-9 [facility] Comment on above: Performed By: #### B LDCX2 #### [facility] [address] [place] [address] Dr. Mirza Sadler RBC NONE SEEN Abnormal 0-2 [facility] Comment on above: Performed By: #### B LDCX2 #### [facility] [address] [place] [address] Dr. Mirza Sadler SPEC GRAVITY 1.015 Normal 1.005-<=1. 025 [facility] Comment on above: Performed By: #### B LDCX2 #### [facility] [address] [place] [address] Dr. Mirza Sadler UA PROTEIN Negative Normal NEGATIVE/ TRACE [facility] Comment on above: Performed By: #### B LDCX2 #### [facility] [address] [place] [address] Dr. Mirza Sadler Urobilinogen Qn (U) 0.2 {Luisito'U}/dL Normal 0.2 - 1. 0 [facility] Comment on above: Performed By: #### B LDCX2 #### [facility] [address] [place] [address] Dr. Mirza Sadler WBC NONE SEEN Normal NONE SEEN [facility] Comment on above: Performed By: #### B LDCX2 #### [facility] [address] [place] [address] Dr. Mirza Sadler URINE T PROTEIN CREAT RATIOo n 11-30-2021 Protein (U) [Mass/Vol] 22.4 mg/dL Critically high <=12.0 [facility] Comment on above: Performed By: #### U RTPCR #### [facility] [address] [place] [address] Dr. Mirza Sadler UR PROT CREAT RAT 0.31 Normal [facility] Comment on above: Performed By: #### U RTPCR #### [facility] [address] [place] [address] Dr. Mirza Sadler URINE CREAT 73.05 mg/dL Normal 20.00-300. 00 [facility] Comment on above: Performed By: #### U RTPCR #### [facility] [address] [place] [address] Dr. Mirza Sadler NM HEPATOBILIARY SCAN W [...] by: HIGINIO FLANAGAN Date: 2021-11-24 11:55 Normal [facility] BNPon 10-27-2021 Natriuretic peptide B (Bld) [Mass/Vol] 574.0 pg/mL Normal <=900.0 [facility] Comment on above: Performed By: #### P T, PTT #### [facility] [address] [address] [address] Mirza Sadler CARDIAC PARUL ADMITon 022 CK [Catalytic activity/Vol] 70 U/L Normal 39-308 [facility] Comment on above: Performed By: #### P T, PTT #### [facility] [address] [address] [address] Mirza Sadler CK.MB [Mass/Vol] 1.10 ng/mL Normal <=3.60 [facility] Comment on above: Performed By: #### P T, PTT #### [facility] [address] [address] [address] Mirza Sadler HSTROP 22.3 pg/mL Normal 4.0-76.1 [facility] Comment on above: Result Comment: CUT- OFF POINTS HAVE BEEN ESTABLISHED BASED ON THE FOURTH UNIVERSAL DEFINITIONS OF MYOCARDIAL INFARCTION. THE UPPER REFERENCE LIMIT (URL) OF TROPONIN, DEFINED THE 99TH PERCENTILE OF cTnI DISTRIBUTION IN A REFERENCE POPULATION, HAS BEEN CONFIRMED THE DECISION THRESHOLD FOR OK DIAGNOSIS. Performed By: #### P T, PTT #### [facility] [address] [address] [address] Mirza Sadler RACHEL 81 ng/mL Normal 16-96 [facility] Comment on above: Performed By: #### P T, PTT #### [facility] [address] [address] [address] Mirza Sadler CBC AUTO DIFFon 10-27-2021 BASO # 0.1 103/ul Normal 0.0-0.1 [facility] Comment on above: Performed By: #### E RUR #### [facility] [address] [place] [address] Dr. Mirza Sadler Basophils/100 WBC (Bld) 0.4 % Normal 0.2-2.0 [facility] Comment on above: Performed By: #### E RUR #### [facility] [address] [place] [address] Dr. Mirza Sadler EO # 0.1 103/ul Normal 0.0-0.7 [facility] Comment on above: Performed By: #### E RUR #### [facility] [address] [place] [address] Dr. Mirza Sadler Eosinophils/100 WBC (Bld) 0.4 % Critically low 0.9-7.0 [facility] Comment on above: Performed By: #### E RUR #### [facility] [address] [place] [address] Dr. Mirza Sadler Erythrocyte distribution width (RBC) [Ratio] 14.1 % Normal 11.0-15.0 [facility] Comment on above: Performed By: #### E RUR #### [facility] [address] [place] [address] Dr. Mirza Sadler Hematocrit (Bld) [Volume fraction] 41.0 % Critically low 42.0-54.0 [facility] Comment on above: Performed By: #### E RUR #### [facility] [address] [place] [address] Dr. Mirza Sadler Hemoglobin (Bld) [Mass/Vol] 14.1 g/dL Normal 14.0-18.0 [facility] Comment on above: Performed By: #### E RUR #### [facility] [address] [address] [address] Mirza Sadler IG # 0.05 10e3/ul Critically high 0.00-0.03 [facility] Comment on above: Performed By: #### E RUR #### [facility] [address] [address] [address] Mirza Sadler IG % 0.4 % Normal 0.0-0.5 [facility] Comment on above: Performed By: #### E RUR #### [facility] [address] [address] [address] Mirza Sadler LYMPH # 0.9 103/ul Critically low 1.2-3.8 [facility] Comment on above: Performed By: #### E RUR #### [facility] [address] [place] [address] Dr. Mirza Sadler Lymphocytes/100 WBC (Bld) 6.6 % Critically low 20.5-60.0 [facility] Comment on above: Performed By: #### E RUR #### [facility] [address] [address] [address] Mirza Sadler MANUAL DIFF REQ NO Normal [facility] Comment on above: Performed By: #### E RUR #### [facility] [address] [address] [address] Mirza Sadler MCH (RBC) [Entitic mass] 29.7 pg Normal 25.9-34.0 [facility] Comment on above: Performed By: #### E RUR #### [facility] [address] [place] [address] Dr. Mirza Sadler MCHC (RBC) [Mass/Vol] 34.4 g/dL Normal 29.9-35.2 [facility] Comment on above: Performed By: #### E RUR #### [facility] [address] [place] [address] Dr. Mirza Sadler MCV (RBC) [Entitic vol] 86.3 fL Normal 80.0-94.0 [facility] Comment on above: Performed By: #### E RUR #### [facility] [address] [address] [address] Mirza Sadler MONO # 0.4 103/ul Normal 0.3-0.8 [facility] Comment on above: Performed By: #### E RUR #### [facility] [address] [place] [address] Dr. Mirza Sadler Monocytes/100 WBC (Bld) 2.6 % Normal 1.7-12.0 [facility] Comment on above: Performed By: #### E RUR #### [facility] [address] [place] [address] Dr. Mirza Sadler NEUT # 12.2 103/ul Critically high 1.4-6.5 [facility] Comment on above: Performed By: #### E RUR #### [facility] [address] [place] [address] Dr. Mirza Sadler Neutrophils/100 WBC (Bld) 89.6 % Critically high 43.0-75.0 [facility] Comment on above: Performed By: #### E RUR #### [facility] [address] [place] [address] Dr. Mirza Sadler Platelet mean volume (Bld) [Entitic vol] 9.7 fL Normal 9.5-13.5 [facility] Comment on above: Performed By: #### E RUR #### [facility] [address] [place] [address] Dr. Mirza Sadler PLT 183 103/ul Normal 150-450 [facility] Comment on above: Performed By: #### E RUR #### [facility] [address] [place], [place] [id number] Dr. Mirza Sadler RBC 4.75 106/ul Normal 4.70-6.10 [facility] Comment on above: Performed By: #### E RUR #### [facility] [address] [place] [address] Dr. Mirza Sadler WBC 13.7 103/ul Critically high 4.0-11.0 [facility] Comment on above: Performed By: #### E RUR #### [facility] [address] [place] [address] Dr. Mirza Sadler CULTURE BLOODon 10-27-2021 Microscopic examination of blood, culture Culture Observations: NO GROWTH AT 5 DAYS. Normal [facility] Comment on above: Performed By: #### B LDCX2 #### [facility] [address] [place] [address] Dr. Mirza Sadler Performed By: #### H STROPN #### [facility] [address] [place] [address] Dr. Mirza Sadler Covid-19 PCR ([facility])on 09-30 SARS-CoV-2 (COVID-19) RNA RAMO+probe Ql (Unsp spec) Not detected Normal NOT DETECTED [facility] Comment on above: Result [...] for this test is supported by the [place] of Health and Human Service's declaration that [...] Performed By: #### P T, PTT #### [facility] [address] [place] [address] Dr. Mirza Sadler ER URINE PROFILEon 2 Bilirubin Ql (U) Negative Normal NEGATIVE [facility] Comment on above: Performed By: #### H STROPN #### [facility] [address] [place] [address] Dr. Mirza Sadler Clarity (U) CLEAR Normal CLEAR [facility] Comment on above: Performed By: #### H STROPN #### [facility] [address] [place] [address] Dr. Mirza Sadler Color (U) YELLOW Normal YELLOW [facility] Comment on above: Performed By: #### H STROPN #### [facility] [address] [place] [address] Dr. Mirza Sadler ERUAHD A micrscopic examina tion will be performed if indicated. Normal [facility] Comment on above: Performed By: #### H STROPN #### [facility] [address] [address] [address] Mirza Sadler Glucose Ql (U) >1000 Abnormal NEGATIVE [facility] Comment on above: Performed By: #### H STROPN #### [facility] [address] [place] [address] Dr. Mirza Sadler Hemoglobin Ql (U) Negative Normal NEGATIVE [facility] Comment on above: Performed By: #### H STROPN #### [facility] [address] [place] [address] Dr. Mirza Sadler Ketones Ql (U) TRACE Abnormal NEGATIVE [facility] Comment on above: Performed By: #### H STROPN #### [facility] [address] [place] [address] Dr. Mirza Sadler LEUKOCYTES Negative Normal NEGATIVE [facility] Comment on above: Performed By: #### H STROPN #### [facility] [address] [place] [address] Dr. Mirza Sadler Nitrite Ql (U) Negative Normal NEGATIVE [facility] Comment on above: Performed By: #### H STROPN #### [facility] [address] [place] [address] Dr. Mirza Sadler pH (U) 5.5 [pH] Normal 5-9 [facility] Comment on above: Performed By: #### H STROPN #### [facility] [address] [place] [address] Dr. Mirza Sadler SPEC GRAVITY 1.010 Normal 1.005-<=1. 025 [facility] Comment on above: Performed By: #### H STROPN #### [facility] [address] [place] [address] Dr. Mirza Sadler UA PROTEIN Negative Normal NEGATIVE/ TRACE [facility] Comment on above: Performed By: #### H STROPN #### [facility] [address] [place] [address] Dr. Mirza Sadler UR MICRO IND NOT INDICATED Normal [facility] Comment on above: Performed By: #### H STROPN #### [facility] [address] [place] [address] Dr. Mirza Sadler Urobilinogen Qn (U) 0.2 {Luisito'U}/dL Normal 0.2 - 1. 0 [facility] Comment on above: Performed By: #### H STROPN #### [facility] [address] [place] [address] Dr. Mirza Sadler INFLUENZA A AND B AGon 10-27 [facility] SEE BELOW Normal [facility] Comment on above: Result Comment: Nega tive for Flu A protein angiten. Infection due to Flu A cannot be ruled out. Flu A angiten in the sample may be below the detection limit of the test. Performed By: #### B INDUSTRIAL DESIGNER #### [facility] [address] [place] [address] Dr. Mirza Sadler INFLUBNEGH SEE BELOW Normal [facility] Comment on above: Result Comment: Nega tive for Flu B protein antigen. Infection due to Flu B cannot be ruled out. Flu B antigen in the sample may be below the detection limit of the test. Performed By: #### B INDUSTRIAL DESIGNER #### [facility] [address] [place] [address] Dr. Mirza Sadler INFLUENZA A AG Negative Normal NEGATIVE SEE COMMENT [facility] Comment on above: Performed By: #### B INDUSTRIAL DESIGNER #### [facility] [address] [place] [address] Dr. Mirza Sadler INFLUENZA B AG Negative Normal NEGATIVE SEE COMMENT [facility] Comment on above: Performed By: #### B INDUSTRIAL DESIGNER #### [facility] [address] [place] [address] Dr. Mirza Sadler INTERNAL CONTROLS Within Normal Limits Normal Wi thin Normal Limits [facility] Comment on above: Performed By: #### B INDUSTRIAL DESIGNER #### [facility] [address] [place] [address] Dr. Mirza Sadler LACTATE/LACTIC ACIDon 2021 Lactate [Moles/Vol] 1.8 mmol/L Normal 0.4-1.9 [facility] Comment on above: Performed By: #### C MP, CMADM #### [facility] [address] [place] [address] Dr. Mirza Sadler LIPASEon 10-27-2021 Lipase [Catalytic activity/Vol] 87.0 U/L Normal 73.0-393.0 [facility] Comment on above: Performed By: #### P T, PTT #### [facility] [address] [place] [address] Dr. Mirza Sadler PH VENOUS BLOODon 10-27-2021 PCO2 VENOUS 37.6 mmHg Critically low 40.0-52.0 [facility] Comment on above: Performed By: #### P T, PTT #### [facility] [address] [place] [address] Dr. Mirza Sadler pH VENOUS 7.422 Normal 7.330-7.43 0 [facility] Comment on above: Performed By: #### P T, PTT #### [facility] [address] [place] [address] Dr. Mirza Sadler PROF 14(COMP METB)on 022 Albumin [Mass/Vol] 4.2 g/dL Normal 3.4-5.0 [facility] Comment on above: Performed By: #### P T, PTT #### [facility] [address] [place] [address] Dr. Mirza Sadler Albumin/Globulin [Mass ratio] 1.3 {ratio} Normal [facility] Comment on above: Performed By: #### P T, PTT #### [facility] [address] [place] [address] Dr. Mirza Sadler ALP [Catalytic activity/Vol] 121 U/L Critically high 46-116 [facility] Comment on above: Performed By: #### P T, PTT #### [facility] [address] [address] [address] Mirza Sadler ALT [Catalytic activity/Vol] 22 U/L Normal 16-63 [facility] Comment on above: Performed By: #### P T, PTT #### [facility] [address] [address] [address] Mirza Sadler Anion gap [Moles/Vol] 16.0 mmol/L Normal [facility] Comment on above: Performed By: #### P T, PTT #### [facility] [address] [address] [address] Mirza Sadler AST [Catalytic activity/Vol] 18 U/L Normal 15-37 [facility] Comment on above: Performed By: #### P T, PTT #### [facility] [address] [place] [address] Dr. Mirza Sadler Bilirubin [Mass/Vol] 1.3 mg/dL Critically high 0.2-1.0 [facility] Comment on above: Performed By: #### P T, PTT #### [facility] [address] [address] [address] Mirza Sadler Calcium [Mass/Vol] 8.9 mg/dL Normal 8.5-10.1 [facility] Comment on above: Performed By: #### P T, PTT #### [facility] [address] [place] [address] Dr. Mirza Sadler Chloride [Moles/Vol] 105 mmol/L Normal 98-107 [facility] Comment on above: Performed By: #### P T, PTT #### [facility] [address] [address] [address] Mirza Sadler CO2 [Moles/Vol] 23.7 mmol/L Normal 21.0-32.0 [facility] Comment on above: Performed By: #### P T, PTT #### [facility] [address] [address] [address] Mirza Sadler Creatinine [Mass/Vol] 1.79 mg/dL Critically high 0.70-1.30 [facility] Comment on above: Performed By: #### P T, PTT #### [facility] [address] [address] [address] Mirza Sadler EGFR-AF ISRAELI 46 mL/min/1.73m2 Critically low >=60 [facility] Comment on above: Performed By: #### P T, PTT #### [facility] [address] [address] [address] Mirza Sadler EGFR-NON AF ISRAELI 38 mL/min/1.73m2 Critically low >=60 [facility] Comment on above: Performed By: #### P T, PTT #### [facility] [address] [address] [address] Mirza Sadler Globulin (S) [Mass/Vol] 3.3 g/dL Normal [facility] Comment on above: Performed By: #### P T, PTT #### [facility] [address] [place] [address] Dr. Mirza Sadler Glucose [Mass/Vol] 195 mg/dL Critically high 74-106 [facility] Comment on above: Performed By: #### P T, PTT #### [facility] [address] [address] [address] Mirza Sadler Potassium [Moles/Vol] 3.7 mmol/L Normal 3.5-5.1 [facility] Comment on above: Performed By: #### P T, PTT #### [facility] [address] [address] [address] Mirza Sadler Protein [Mass/Vol] 7.5 g/dL Normal 6.4-8.2 [facility] Comment on above: Performed By: #### P T, PTT #### [facility] [address] [address] [address] Mirza Sadler Sodium [Moles/Vol] 141 mmol/L Normal 136-145 [facility] Comment on above: Performed By: #### P T, PTT #### [facility] [address] [address] [address] Mirza Sadler Urea nitrogen [Mass/Vol] 25.0 mg/dL Critically high 7.0-18.0 [facility] Comment on above: Performed By: #### P T, PTT #### [facility] [address] [place] [address] Dr. Mirza Sadler Urea nitrogen/Creatinine [Mass ratio] 14.0 mg/mg Normal [facility] Comment on above: Performed By: #### P T, PTT #### [facility] [address] [place] [address] Dr. Mirza Sadler PROTIMEon 10-27-2021 INR Coag (PPP) [Relative time] 1.07 {INR} Normal [facility] Comment on above: Performed By: #### P T, PTT #### [facility] [address] [place] [address] Dr. Mirza Sadler INR GUIDELINES SEE BELOW Normal [facility] Comment on above: Result Comment: RIVKA RED INR: 2.0 - 3.0 CONDITIONS NOT LISTED BELOW 2.5 - 3.5 FOR PROSTHETIC HEART VALVE REPLACEMENT 2.5 - 3.5 RECURRENT THROMBOSIS Performed By: #### P T, PTT #### [facility] [address] [place] [address] Dr. Mirza Sadler PT Coag (PPP) [Time] 11.5 s Normal 9.0-11.6 [facility] Comment on above: Performed By: #### P T, PTT #### [facility] [address] [place] [address] Dr. Mirza Sadler PTTon 10-27-2021 aPTT Coag (Bld) [Time] 25.1 s Normal 22.3-36.2 [facility] Comment on above: Performed By: #### P T, PTT #### [facility] [address] [place] [address] Dr. Mirza Sadler XR CHEST 1 Von [...] IMPRESSION: Right-sided pneumonia. Electronically authenticated by: GAGAN AURELIO Date: 2021-10-27 10:21 Normal [facility] 10-20-2021 [facility] -- LANI LIZAMA ([id number]) 1950 M Date Time Provider Department 10/20/21 [...] Fully Assessed Reason for Visit: Lab Orders [1688] Primary Visit Diagnosis:Monoclonal gammopathy [D47.2] Order(s):CBC + DIFF [SQCBCDIF] Order #: [id number] FUTURE Prescriptions as of 10/24/2021 - famotidine [...] Status:Closed by VEE DAY on 10/24/21 Normal [facility] RAD - CT Reporton 10-06-2021 RAD - CT Report [id number]:127 Normal [facility] CT ABD/PELVIS WO CONon 10-03 CT [...] by: HIGINIO FLANAGAN Date: 2021-10-03 16:29 Normal [facility] Ambulatory Visit Summaryon 0 09-29-2021 [...] RLQ ASHD (arteriosclerotic heart disease) Atheroscler of [place] artery of both legs with intermit claudication [...] infrarenal abdominal aorta due to atherosclerosis Normal [facility] Outside Colonoscopyon 2021 Outside Colonoscopy [id number]:127 Normal [facility] Physician Referralon 022 Physician Referral [id number]:127 Normal [facility] PROF 14(COMP METB)on 022 Albumin [Mass/Vol] 4.1 g/dL Normal 3.4-5.0 [facility] Comment on above: Performed By: #### P T, PTT #### [facility] [address] [address] [address] Mirza Sadler Albumin/Globulin [Mass ratio] 1.2 {ratio} Normal [facility] Comment on above: Performed By: #### P T, PTT #### [facility] [address] [address] [address] Mirza Sadler ALP [Catalytic activity/Vol] 132 U/L Critically high 46-116 [facility] Comment on above: Performed By: #### P T, PTT #### [facility] [address] [address] [address] Mirza Sadler ALT [Catalytic activity/Vol] 30 U/L Normal 16-63 [facility] Comment on above: Performed By: #### P T, PTT #### [facility] [address] [address] [address] Mirza Sadler Anion gap [Moles/Vol] 10.7 mmol/L Normal [facility] Comment on above: Performed By: #### P T, PTT #### [facility] [address] [address] [address] Mirza Sadler AST [Catalytic activity/Vol] 21 U/L Normal 15-37 [facility] Comment on above: Performed By: #### P T, PTT #### [facility] [address] [address] [address] Mirza Sadler Bilirubin [Mass/Vol] 0.7 mg/dL Normal 0.2-1.0 [facility] Comment on above: Performed By: #### P T, PTT #### [facility] [address] [address] [address] Mirza Sadler Calcium [Mass/Vol] 9.0 mg/dL Normal 8.5-10.1 [facility] Comment on above: Performed By: #### P T, PTT #### [facility] [address] [address] [address] Mirza Sadler Chloride [Moles/Vol] 106 mmol/L Normal 98-107 [facility] Comment on above: Performed By: #### P T, PTT #### [facility] [address] [address] [address] Mirza Sadler CO2 [Moles/Vol] 27.5 mmol/L Normal 21.0-32.0 [facility] Comment on above: Performed By: #### P T, PTT #### [facility] [address] [address] [address] Mirza Sadler Creatinine [Mass/Vol] 1.77 mg/dL Critically high 0.70-1.30 [facility] Comment on above: Performed By: #### P T, PTT #### [facility] [address] [address] [address] Mirza Sadler EGFR-AF ISRAELI 46 mL/min/1.73m2 Critically low >=60 [facility] Comment on above: Performed By: #### P T, PTT #### [facility] [address] [address] [address] Mirza Sadler EGFR-NON AF ISRAELI 38 mL/min/1.73m2 Critically low >=60 [facility] Comment on above: Performed By: #### P T, PTT #### [facility] [address] [address] [address] Mirza Sadler Globulin (S) [Mass/Vol] 3.5 g/dL Normal [facility] Comment on above: Performed By: #### P T, PTT #### [facility] [address] [address] [address] Mirza Sadler Glucose [Mass/Vol] 135 mg/dL Critically high 74-106 [facility] Comment on above: Performed By: #### P T, PTT #### [facility] [address] [address] [address] Mirza Sadler Potassium [Moles/Vol] 4.2 mmol/L Normal 3.5-5.1 [facility] Comment on above: Performed By: #### P T, PTT #### [facility] [address] [address] [address] Mirza Sadler Protein [Mass/Vol] 7.6 g/dL Normal 6.4-8.2 [facility] Comment on above: Performed By: #### P T, PTT #### [facility] [address] [address] [address] Mirza Sadler Sodium [Moles/Vol] 140 mmol/L Normal 136-145 [facility] Comment on above: Performed By: #### P T, PTT #### [facility] [address] [address] [address] Mirza Sadler Urea nitrogen [Mass/Vol] 17.0 mg/dL Normal 7.0-18.0 [facility] Comment on above: Performed By: #### P T, PTT #### [facility] [address] [address] [address] Mirza Sadler Urea nitrogen/Creatinine [Mass ratio] 9.6 mg/mg Normal [facility] Comment on above: Performed By: #### P T, PTT #### [facility] [address] [address] [address] Mirza Sadler US SINGLE QUAD RT [...] by: HIGINIO FLANAGAN Date: 2021-08-27 08:40 Normal [facility] A1C HEMOGLOBINon 07-17-2021 HbA1c (Bld) [Mass fraction] 6.9 % [facility] Other Glucose - FINGER STICKon Glucose [Mass/Vol] 180 mg/dL [facility] Other HbA1c (Bld) [Mass fraction]o n 07-17-2021 A1C HEMOGLOBIN [facility] Other A1C with Estimated Average G luon 04-10-2021 HbA1c (Bld) [Mass fraction] 6.4 % [facility] Other HbA1c (Bld) [Mass fraction] 243 % [facility] Other Glucoseon 04-10-2021 Glucose [Mass/Vol] 243 mg/dL [facility] Other A1C HEMOGLOBINon 01-03-2021 HbA1c (Bld) [Mass fraction] 6.6 % [facility] Other Glucose - FINGER STICKon Glucose [Mass/Vol] 142 mg/dL [facility] Other HbA1c (Bld) [Mass fraction]o n 01-03-2021 A1C HEMOGLOBIN [facility] Other CNPNon 10-27-2020 [facility]NP[facility] Telephone ([facility]) -- LANI LIZAMA ([id number]) 1950 M Date Time Provider Department 10/27/20 [...] Unknown Comments: Received name: Nkda Date Reviewed: 10/25/2020 Reviewed by: Abdon Walker [...] Status:Closed by ANGELINE WARE on 10/28/20 Normal [facility] Cardiovascular Lab Reporton 10-16-[address] [facility] Patient Name: [facility] MR #: [id number] Physician: Pinky Bishop Department of M.D. Medicine Service Date: 10/15/2018 Division of Birthdate: 1950 Cardiology Room #: [id number] Adult Cardiovascular Services [facility] [address] [place] [id number] Cardiovascular Laboratory Report FINAL IMPRESSIONS: 1. Severe three-vessel [place] pine coronary artery disease. 2. Dxnc-tj-zqzv bypass grafts patent. 3. Mild in-stent restenosis [...] 4. Follow up with me in the [facility] in the next 4-6 weeks. 5. [...] guidance and using a micropuncture kit. A 6-Cuban Glidesheath was inserted without difficulty. Coronary angiography [...] of the vessel. There is evidence of pxdm-th-ziclu collaterals. The distal vessel is supplied via [...] is a long stented segment in the [id number] portion of the vessel with 30% in-stent restenosis. The vessel distal to the touchdown shows caliber reduction and no discrete stenosis. There is diffuse disease in the branches. Saphenous vein graft to the posterior descending artery. This is widely patent. It shows an extensive stented segment from [id number] of the vessel. There is a 40%-50% [...] Bishop M.D. Date Trans: 10/16/2018 05:01 Nakul/gatito [id number] cc: Harley Crespo D.O. [address] [facility] [place] [address] Normal [facility] BASIC METABOLIC PANELon 09-29 Calcium [Mass/Vol] 8.9 mg/dL Normal 8.6-10.3 [facility] Comment on above: Order Comment: No: D o not add to previous draw Performed By: #### 1 69, [id number] #### [facility] [address] [place] [address], [place] Chloride [Moles/Vol] 110 mmol/L High 98-107 [facility] Comment on above: Order Comment: No: D o not add to previous draw Performed By: #### 1 69, [id number] #### [facility] [address] [place] [address], [place] CO2 [Moles/Vol] 26 mmol/L Normal 21-31 [facility] Comment on above: Order Comment: No: D o not add to previous draw Performed By: #### 1 69, [id number] #### [facility] [address] [place] [address], [place] Creatinine [Mass/Vol] 1.52 mg/dL High 0.70-1.30 [facility] Comment on above: Order Comment: No: D o not add to previous draw Performed By: #### 1 69, [id number] #### [facility] [address] [place] [address], [place] GFR/1.73 sq M predicted among blacks MDRD (S/P/Bld) [Vol rate/Area] 56 ml/min/1.73sq m Abnormal >60 [facility] Comment on above: Order Comment: No: D o not add to previous draw Performed By: #### 1 69, [id number] #### [facility] [address] [place] [address], [place] GFR/1.73 sq M predicted among non-blacks MDRD (S/P/Bld) [Vol rate/Area] 46 ml/min/1.73sq m Abnormal >60 [facility] Comment on above: Order Comment: No: D o not add to previous draw Performed By: #### 1 69, [id number] #### [facility] [address] [place] [id number], [facility] Glucose [Mass/Vol] 89 mg/dL Normal 70-100 [facility] Comment on above: Order Comment: No: D o not add to previous draw Performed By: #### 1 69, 62879 #### [facility] [address] [place] [address], [facility] Potassium [Moles/Vol] 3.9 mmol/L Normal 3.5-5.1 [facility] Comment on above: Order Comment: No: D o not add to previous draw Performed By: #### 1 69, 08678 #### [facility] [address] [place] [address], [facility] Sodium [Moles/Vol] 141 mmol/L Normal 136-145 [facility] Comment on above: Order Comment: No: D o not add to previous draw Performed By: #### 1 69, 56466 #### [facility] [address] [place] [address], [facility] Urea nitrogen [Mass/Vol] 19 mg/dL Normal 7-25 [facility] Comment on above: Order Comment: No: D o not add to previous draw Performed By: #### 1 69, 00584 #### [facility] [address] [facility] [place] [address], [facility] CBC W/DIFFon 10-15-2018 ABS BASOPHILS 0.1 10*3/uL Normal 0.0-0.2 [facility] Comment on above: Order Comment: No: D o not add to previous draw Performed By: #### 5 0103 #### [facility] [address] [place] [id number], [facility] ABS IMM GRANS 0.0 10*3/uL Normal 0.0-0.2 [facility] Comment on above: Order Comment: No: D o not add to previous draw Performed By: #### 5 0103 #### [facility] [address] [place] [address], [facility] ABS NEUTROPHILS 3.5 10*3/uL Normal 1.6-7.6 [facility] Comment on above: Order Comment: No: D o not add to previous draw Performed By: #### 5 0103 #### [facility] [address] [place] [address], [place] Basophils/100 WBC (Bld) 0.8 % Normal 0.0-1.0 [facility] Comment on above: Order Comment: No: D o not add to previous draw Performed By: #### 5 0103 #### [facility] [address] [place] [address], [place] Eosinophils (Bld) [#/Vol] 0.3 10*3/uL Normal 0.0-0.5 [facility] Comment on above: Order Comment: No: D o not add to previous draw Performed By: #### 5 0103 #### [facility] [address] [place] [address], [facility] Eosinophils/100 WBC (Bld) 3.9 % Normal 0.0-6.0 [facility] Comment on above: Order Comment: No: D o not add to previous draw Performed By: #### 5 0103 #### [facility] [address] [place] [address], [place] Erythrocyte distribution width (RBC) [Ratio] 13.5 % Normal 11.5-15.0 [facility] Comment on above: Order Comment: No: D o not add to previous draw Performed By: #### 5 0103 #### [facility] [address] [place] [address], [place] Hematocrit (Bld) [Volume fraction] 39.7 % Normal 39.0-50.0 [facility] Comment on above: Order Comment: No: D o not add to previous draw Performed By: #### 5 0103 #### [facility] [address] [place] [address], [facility] Hemoglobin (Bld) [Mass/Vol] 13.0 g/dL Normal 13.0-17.0 [facility] Comment on above: Order Comment: No: D o not add to previous draw Performed By: #### 5 0103 #### [facility] [address] [place] [address], [facility] IMMATURE GRANS 0.3 % Normal 0.0-1.0 [facility] Comment on above: Order Comment: No: D o not add to previous draw Performed By: #### 5 0103 #### [facility] [address] [facility] [place] [address], [facility] Lymphocytes (Bld) [#/Vol] 1.9 10*3/uL Normal 1.2-4.0 [facility] Comment on above: Order Comment: No: D o not add to previous draw Performed By: #### 5 0103 #### [facility] [address] [facility] [place] [address], [facility] Lymphocytes/100 WBC (Bld) 30.1 % Normal 20.0-45.0 [facility] Comment on above: Order Comment: No: D o not add to previous draw Performed By: #### 5 0103 #### [facility] [address] [facility] [place] [id number], [facility] MCH (RBC) [Entitic mass] 30.0 pg Normal 27.0-33.0 [facility] Comment on above: Order Comment: No: D o not add to previous draw Performed By: #### 5 0103 #### [facility] [address] [place] [id number], [facility] MCHC (RBC) [Mass/Vol] 32.7 g/dL Normal 32.0-35.0 [facility] Comment on above: Order Comment: No: D o not add to previous draw Performed By: #### 5 0103 #### [facility] [address] [place] [address], [facility] MCV (RBC) [Entitic vol] 91.5 fL Normal 82.0-98.0 [facility] Comment on above: Order Comment: No: D o not add to previous draw Performed By: #### 5 0103 #### [facility] [address] [place] [address], [facility] Monocytes (Bld) [#/Vol] 0.7 10*3/uL Normal 0.1-1.0 [facility] Comment on above: Order Comment: No: D o not add to previous draw Performed By: #### 5 3 #### [facility] [address] [place] [address], [facility] MONOS 10.7 % Normal 5.0-12.0 [facility] Comment on above: Order Comment: No: D o not add to previous draw Performed By: #### 5 3 #### [facility] [address] [place] [address], [facility] Neutrophils/100 WBC (Bld) 54.2 % Normal 40.0-72.0 [facility] Comment on above: Order Comment: No: D o not add to previous draw Performed By: #### 5 3 #### [facility] [address] [place] [address], [facility] Nucleated RBC/100 WBC (Bld) [Ratio] 0 % Normal 0-0 [facility] Comment on above: Order Comment: No: D o not add to previous draw Performed By: #### 5 3 #### [facility] [address] [place] [address], [facility] PLAT CNT 164 10*3/uL Normal 150-400 [facility] Comment on above: Order Comment: No: D o not add to previous draw Performed By: #### 5 3 #### [facility] [address] [place] [address], [facility] RBC (Bld) [#/Vol] 4.34 10*6/uL Normal 4.20-5.70 [facility] Comment on above: Order Comment: No: D o not add to previous draw Performed By: #### 5 0103 #### [facility] [address] [place] [address], [facility] WBC (Bld) [#/Vol] 6.38 10*3/uL Normal 4.00-10.60 [facility] Comment on above: Order Comment: No: D o not add to previous draw Performed By: #### 5 0103 #### [facility] [address] MAGNESIUM BLOODon 10-15-2018 Magnesium [Mass/Vol] 2.0 mg/dL Normal 1.9-2.7 [facility] Comment on above: Order Comment: No: D o not add to previous draw Performed By: #### 1 0070, 04835 #### [facility] [address] PROTHROMBIN TIMEon 9 INR Coag (PPP) [Relative time] 1.11 {INR} Normal 0.91-1.16 [facility] Comment on above: Order Comment: No: [...] 1995;108:[id number]. Performed By: #### 5 6101 #### [facility] [address] PT Coag (PPP) [Time] 14.3 s Normal 12.3-14.8 [facility] Comment on above: Order Comment: No: D o not add to previous draw Result Comment: ALL RESULTS MUST BE INTERPRETED WITH RESPECT TO BLOOD DRAWING ARTIFACT OR DILUTION ERROR OF ANTICOAGULANT AT THE TIME OF SAMPLING. Performed By: #### 5 6101 #### [facility] [employer] [address] POC GLUCOSE LABon 10-14-2018 Glucose [Mass/Vol] 180 mg/dL High 70-100 [facility] Comment on above: Performed By: #### 8 5499 #### [facility] [address] Cardiovascular Lab Reporton 02-25-[address] [facility] Patient Name: Lani Lizama [facility] MR #: [id number] Physician: Pinky Bishop, Department of M.D. Medicine Service Date: 02/24/2018 Division of Birthdate: 1950 Cardiology Room #: 3AB [id number] Adult Cardiovascular Services [place] [address] Cardiovascular Laboratory Report FINAL IMPRESSIONS: 1. 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 2. Severe 3-vessel lone pine coronary artery disease. 3. 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 4. Gkynaden-mx-fwfksd systemic hypertension. RECOMMENDATIONS: 1. Aspirin 81 mg lifelong. 2. Plavix 75 mg daily for a minimum of 6 months, preferably termination clerk. 3. Aggressive cardiovascular risk factor modification. 4. Optimization of medical management; high intensity statin therapy as tolerated, we will switch his Toprol-XL to Coreg 25 mg p.o. b.i.d., and angiotensin-converting enzyme inhibitor. 5. Follow up with w[facility] in the [facility] in the next 2-3 weeks. 6. Follow up with Dr. Crespo as scheduled. PROCEDURES: Limited femoral angiography, bilateral selective coronary angiography, saphenous vein graft angiography, angiography of the left internal mammary artery graft, limited angiography of the left subclavian, percutaneous balloon angioplasty, and Synergy drug-eluting stent placement to the saphenous vein graft to the obtuse marginal, placement of a 6-Cuban MYNXGRIP closure device. METHODS: After risks, benefits, and alternatives were explained, written informed consent was obtained. The patient was prepped and draped in usual sterile fashion over both groins. Using 1% lidocaine solution, local infiltration anesthesia was achieved over the right groin. Using a micropuncture kit, access of the right common femoral artery was obtained. A 6-Cuban 11 cm sheath was exchanged then without [...] to proceed with an interventional procedure. A 6-Cuban JR4 guide catheter was advanced in and [...] the procedure. All catheters were removed. A 6-Cuban MYNXGRIP closure device was deployed per protocol [...] is a 30% touchdown stenosis of the lone pine vessel. There is evidence of [id number] collaterals supplying the distal right coronary artery. Limited femoral angiography, this shows mild plaque and anatomy suitable for closure device. INDICATIONS: Unstable angina. Electronically Signed by: Pinky Bishop M.D. 03/06/2018 12:15 P Pinky Bishop M.D. Date Dict: 02/24/2018/01:39 P/Pinky Bishop M.D. Date Trans: 02/25/2018 02:12 A/gatito [id number] cc: Harley Crespo D.O. [address] [place] [id number] [place] [facility] POC GLUCOSE LABon 02-25-2018 Glucose [Mass/Vol] 150 mg/dL High 70-100 [facility] Comment on above: Performed By: #### 8 5499 #### [facility] [address] [facility] [place] [address], [facility] POC GLUCOSE LABon 02-24-2018 Glucose [Mass/Vol] 186 mg/dL High 70-100 [facility] Comment on above: Performed By: #### 8 5499 #### [facility] [address] [place] [address], [place] Glucose [Mass/Vol] 192 mg/dL High 70-100 [facility] Comment on above: Performed By: #### 8 5499 #### [facility] [address] [place] [address], [facility] Social History Date Type Detail Facility Start: 09-29-2021 End: 07-02-2023 Tobacco smoking status Ex-smoker (finding) [facility] Start: 10-25-2020 Alcohol intake Ex-drinker (finding) [facility] Start: 07-23-2018 Tobacco use and exposure Smokeless tobacco non-user [facility] Start: 1950 Sex Assigned At Not on file C [facility] Start: 1950 Sex Assigned At Male F [facility] Unknown if ever smoked [facility] Other Sex Assigned At [facility] Other Tobacco smoking status Never [facility] Vital Signs Date Time Vital Sign Value Performing Clinician Facility 08-12-2023 08:37-0400 Body height 170.18 cm [facility] 08-12-2023 08:37-0400 Body mass index (BMI) [Ratio] 27.6 kg/m2 [facility] 08-12-2023 08:37-0400 Body weight 79.88 kg [facility] 08-12-2023 08:37-0400 Diastolic blood pressure 84 mm[Hg] [facility] 08-12-2023 08:37-0400 Heart rate 82 /min [facility] 08-12-2023 08:37-0400 Respiratory rate 12 /min [facility] 08-12-2023 08:37-0400 Systolic blood pressure 134 mm[Hg] [facility] 07-02-2023 08:54-0400 Body height 170.18 cm [facility] 07-02-2023 08:54-0400 Body mass index (BMI) [Ratio] 27.3 kg/m2 [facility] 07-02-2023 08:54-0400 Body temperature 96.5 [degF] [facility] 07-02-2023 08:54-0400 Body weight 79.09 kg [facility] 07-02-2023 08:54-0400 Diastolic blood pressure 79 mm[Hg] [facility] 07-02-2023 08:54-0400 Heart rate 87 /min [facility] 07-02-2023 08:54-0400 Respiratory rate 18 /min [facility] 07-02-2023 08:54-0400 SaO2% (BldA) [Mass fraction] 96 % [facility] 07-02-2023 08:54-0400 Systolic blood pressure 120 mm[Hg] [facility] 06-18-2023 10:51-0400 Body height 170.18 cm [facility] 06-18-2023 10:51-0400 Body mass index (BMI) [Ratio] 26.6 kg/m2 [facility] 06-18-2023 10:51-0400 Body weight 77.11 kg [facility] 06-18-2023 10:51-0400 Diastolic blood pressure 84 mm[Hg] [facility] 06-18-2023 10:51-0400 Heart rate 95 /min [facility] 06-18-2023 10:51-0400 Respiratory rate 18 /min [facility] 06-18-2023 10:51-0400 SaO2% (BldA) [Mass fraction] 97 % [facility] 06-18-2023 10:51-0400 Systolic blood pressure 127 mm[Hg] [facility] 05-03-2023 09:30-0500 Body height 170.18 cm DO Harley Ball Work Phone: [facility] 05-03-2023 09:30-0500 Body weight 77.29 kg DO Harley Ball Work Phone: [facility] 05-03-2023 09:30-0500 Diastolic blood pressure 85 mm[Hg] DO Harley Ball Work Phone: [facility] 05-03-2023 09:30-0500 Systolic blood pressure 126 mm[Hg] DO Harley Ball Work Phone: [facility] 03-12-2023 11:15-0500 Body height 170.18 cm Tondra Mapus Other [facility] 03-12-2023 11:15-0500 Body mass index (BMI) [Ratio] 27.03 kg/m2 Tondra Mapus Other [facility] Other 03-12-2023 11:15-0500 Body weight 78.29 kg Tondra Mapus Other [facility] 03-12-2023 11:15-0500 Diastolic blood pressure 79 mm[Hg] Tondra Mapus Other [facility] 03-12-2023 11:15-0500 Respiratory rate 18 /min Tondra Mapus Other [facility] Other 03-12-2023 11:15-0500 SaO2% (BldA) [Mass fraction] 98 % Tondra Mapus Other [facility] Other 03-12-2023 11:15-0500 Systolic blood pressure 128 mm[Hg] Tondra Mapus Other [facility] 01-07-2023 10:00-0400 Body height 170.18 cm Kingsley Latisha Other [facility] Other 01-07-2023 10:00-0400 Body mass index (BMI) [Ratio] 27 kg/m2 Kingsley Latisha Other [facility] Other 01-07-2023 10:00-0400 Body temperature 97.7 [degF] Kingsley Latisha Other [facility] Other 01-07-2023 10:00-0400 Body weight 78.2 kg Kingsley Latisha Other [facility] Other 01-07-2023 10:00-0400 Diastolic blood pressure 73 mm[Hg] Kingsley Latisha Other [facility] Other 01-07-2023 10:00-0400 Respiratory rate 16 /min Kingsley Latisha Other [facility] Other 01-07-2023 10:00-0400 SaO2% (BldA) [Mass fraction] 98 % Kingsley Latisha Other [facility] Other 01-07-2023 10:00-0400 Systolic blood pressure 108 mm[Hg] Kingsley Latisha Other [facility] Other 12-31-2022 09:30-0400 Body height 170.18 cm Harley Ball Other [facility] Other 12-31-2022 09:30-0400 Body mass index (BMI) [Ratio] 27.03 kg/m2 Harley Ball Other [facility] Other 12-31-2022 09:30-0400 Body weight 78.29 kg Harley Ball Other [facility] Other 12-31-2022 09:30-0400 Diastolic blood pressure 69 mm[Hg] Harley Ball Other [facility] Other 12-31-2022 09:30-0400 Respiratory rate 16 /min Harley Ball Other [facility] Other 12-31-2022 09:30-0400 Systolic blood pressure 102 mm[Hg] Harley Ball Other [facility] Other 08-31-2022 08:45-0400 Body height 170.18 cm Harley Ball Other [facility] Other 08-31-2022 08:45-0400 Body mass index (BMI) [Ratio] 26.72 kg/m2 Harley Ball Other [facility] Other 08-31-2022 08:45-0400 Body weight 77.38 kg Harley Ball Other [facility] Other 08-31-2022 08:45-0400 Diastolic blood pressure 69 mm[Hg] Harley Ball Other [facility] Other 08-31-2022 08:45-0400 Respiratory rate 12 /min Harley Ball Other [facility] Other 08-31-2022 08:45-0400 Systolic blood pressure 102 mm[Hg] Harley Ball Other [facility] Other 07-02-2022 10:40-0400 Body height 170.18 cm Kingsley Latisha Other [facility] Other 07-02-2022 10:40-0400 Body mass index (BMI) [Ratio] 27.69 kg/m2 Kingsley Latisha Other [facility] Other 07-02-2022 10:40-0400 Body temperature 96.4 [degF] Kingsley Latisha Other [facility] Other 07-02-2022 10:40-0400 Body weight 80.2 kg Kingsley Latisha Other [facility] Other 07-02-2022 10:40-0400 Diastolic blood pressure 71 mm[Hg] Kingsley Latisha Other [facility] Other 07-02-2022 10:40-0400 Respiratory rate 16 /min Kingsley Latisha Other [facility] Other 07-02-2022 10:40-0400 SaO2% (BldA) [Mass fraction] 97 % Kingsley Latisha Other [facility] Other 07-02-2022 10:40-0400 Systolic blood pressure 115 mm[Hg] Kingsley Woods Other [facility] Other 06-28-2022 09:30-0400 Body height 170.18 cm Harley Ball Other [facility] Other 06-28-2022 09:30-0400 Body mass index (BMI) [Ratio] 27.16 kg/m2 Harley Ball Other [facility] Other 06-28-2022 09:30-0400 Body weight 78.65 kg Harley Ball Other [facility] Other 06-28-2022 09:30-0400 Diastolic blood pressure 66 mm[Hg] Harley Ball Other [facility] Other 06-28-2022 09:30-0400 Respiratory rate 12 /min Harley Ball Other [facility] Other 06-28-2022 09:30-0400 Systolic blood pressure 115 mm[Hg] Harley Ball Other [facility] Other 06-26-2022 08:45-0400 Body height 170.18 cm Tondra Mapus Other [facility] Other 06-26-2022 08:45-0400 Body mass index (BMI) [Ratio] 27.75 kg/m2 Tondra Mapus Other [facility] Other 06-26-2022 08:45-0400 Body weight 80.38 kg Tondra Mapus Other [facility] Other 06-26-2022 08:45-0400 Diastolic blood pressure 61 mm[Hg] Tondra Mapus Other [facility] Other 06-26-2022 08:45-0400 Respiratory rate 16 /min Tondra Mapus Other [facility] Other 06-26-2022 08:45-0400 SaO2% (BldA) [Mass fraction] 96 % Tondra Mapus Other [facility] Other 06-26-2022 08:45-0400 Systolic blood pressure 105 mm[Hg] Tondra Mapus Other [facility] Other 03-20-2022 09:15-0500 Body height 170.18 cm Tondra Mapus Other [facility] Other 03-20-2022 09:15-0500 Body mass index (BMI) [Ratio] 26.15 kg/m2 Tondra Mapus Other [facility] Other 03-20-2022 09:15-0500 Body weight 75.75 kg Tondra Mapus Other [facility] Other 03-20-2022 09:15-0500 Diastolic blood pressure 57 mm[Hg] Tondra Mapus Other [facility] Other 03-20-2022 09:15-0500 Respiratory rate 16 /min Tondra Mapus Other [facility] Other 03-20-2022 09:15-0500 SaO2% (BldA) [Mass fraction] 98 % Tondra Mapus Other [facility] Other 03-20-2022 09:15-0500 Systolic blood pressure 117 mm[Hg] Tondra Mapus Other [facility] Other 01-17-2022 11:45-0400 Body height 170.18 cm DO Harley Ball Work Phone: [facility] 01-17-2022 11:22-0400 Diastolic blood pressure 68 mm[Hg] DO Harley Ball Work Phone: [facility] 01-17-2022 11:22-0400 Heart rate 60 /min DO Harley Ball Work Phone: [facility] 01-17-2022 11:22-0400 Systolic blood pressure 118 mm[Hg] DO Harley Ball Work Phone: [facility] 01-17-2022 11:05-0400 Body temperature 97.4 [degF] DO Harley Ball Work Phone: [facility] 01-17-2022 11:05-0400 Respiratory rate 18 /min DO Harley Ball Work Phone: [facility] 01-17-2022 11:05-0400 SaO2% (BldA) [Mass fraction] 95 % DO Harley Ball Work Phone: [facility] 01-17-2022 06:58-0400 Body weight 77.9 kg DO Harley Ball Work Phone: [facility] 01-15-2022 15:23-0400 Inhaled oxygen flow rate 2 L/min DO Harley Ball Work Phone: [facility] 12-18-2021 09:45-0400 Body height 170.18 cm Tondra Desireeus Other [facility] Other 12-18-2021 09:45-0400 Body mass index (BMI) [Ratio] 27.25 kg/m2 Tondra Mapus Other [facility] Other 12-18-2021 09:45-0400 Body weight 78.93 kg Tondra Mapus Other [facility] Other 12-18-2021 09:45-0400 Diastolic blood pressure 65 mm[Hg] Tondra Mapus Other [facility] Other 12-18-2021 09:45-0400 Respiratory rate 16 /min Tondra Mapus Other [facility] Other 12-18-2021 09:45-0400 SaO2% (BldA) [Mass fraction] 97 % Tondra Mapus Other [facility] Other 12-18-2021 09:45-0400 Systolic blood pressure 133 mm[Hg] Tondra Mapus Other [facility] Other 09-29-2021 13:13-0400 Blood Pressure Location [facility]agan [facility] [place] 09-29-2021 13:13-0400 Diastolic blood pressure 74 mm[Hg] G[facility] 09-29-2021 13:13-0400 Heart rate 60 /min [facility] [place] 09-29-2021 13:13-0400 Respiratory rate 16 /min Gagan N[facility] Luis Enrique 09-29-2021 13:13-0400 Systolic blood pressure 138 mm[Hg] [facility]agan N[facility] [place] 07-17-2021 09:45-0400 Body height 170.18 cm Tondra Mapus Other [facility] Other 07-17-2021 09:45-0400 Body mass index (BMI) [Ratio] 30.69 kg/m2 Tondra Mapus Other [facility] Other 07-17-2021 09:45-0400 Body weight 88.91 kg Tondra Mapus Other [facility] Other 07-17-2021 09:45-0400 Diastolic blood pressure 73 mm[Hg] Tondra Mapus Other [facility] Other 07-17-2021 09:45-0400 Respiratory rate 16 /min Tondra Mapus Other [facility] Other 07-17-2021 09:45-0400 SaO2% (BldA) [Mass fraction] 97 % Tondra Mapus Other [facility] Other 07-17-2021 09:45-0400 Systolic blood pressure 163 mm[Hg] Tondra Mapus Other [facility] Other 06-06-2021 10:20-0500 Body height 170.18 cm Kingsley Latisha Other [facility] Other 06-06-2021 10:20-0500 Body mass index (BMI) [Ratio] 30.29 kg/m2 Kingsley Latisha Other [facility] Other 06-06-2021 10:20-0500 Body temperature 96.1 [degF] Kingsley Latisha Other [facility] Other 06-06-2021 10:20-0500 Body weight 87.73 kg Kingsley Latisha Other [facility] Other 06-06-2021 10:20-0500 Diastolic blood pressure 70 mm[Hg] Kingsley Latisha Other [facility] Other 06-06-2021 10:20-0500 Respiratory rate 18 /min Kingsley Latisha Other [facility] Other 06-06-2021 10:20-0500 SaO2% (BldA) [Mass fraction] 97 % Kingsley Latisha Other [facility] Other 06-06-2021 10:20-0500 Systolic blood pressure 160 mm[Hg] Kingsley Latisha Other [facility] Other 04-10-2021 09:15-0500 Body height 170.18 cm Tondra Mapus Other [facility] Other 04-10-2021 09:15-0500 Body mass index (BMI) [Ratio] 30.99 kg/m2 Tondra Mapus Other [facility] Other 04-10-2021 09:15-0500 Body weight 89.77 kg Tondra Mapus Other [facility] Other 04-10-2021 09:15-0500 Diastolic blood pressure 64 mm[Hg] Tondra Mapus Other [facility] Other 04-10-2021 09:15-0500 Respiratory rate 18 /min Tondra Desireeus Other [facility] Other 04-10-2021 09:15-0500 SaO2% (BldA) [Mass fraction] 98 % Tondra Mapus Other [facility] Other 04-10-2021 09:15-0500 Systolic blood pressure 136 mm[Hg] Tondra Desireeus Other [facility] Other 02-14-2021 10:00-0500 Body height 170.18 cm Kingsley Latisha Other [facility] Other 02-14-2021 10:00-0500 Body mass index (BMI) [Ratio] 30.98 kg/m2 Kingsley Latisha Other [facility] Other 02-14-2021 10:00-0500 Body temperature 96 [degF] Kingsley Latisha Other [facility] Other 02-14-2021 10:00-0500 Body weight 89.72 kg Kingsley Latisha Other [facility] Other 02-14-2021 10:00-0500 Diastolic blood pressure 60 mm[Hg] Kingsley Latisha Other [facility] Other 02-14-2021 10:00-0500 Respiratory rate 16 /min Kingsley Latisha Other [facility] Other 02-14-2021 10:00-0500 SaO2% (BldA) [Mass fraction] 97 % Kingsley Latisha Other [facility] Other 02-14-2021 10:00-0500 Systolic blood pressure 130 mm[Hg] Kingsley Latisha Other [facility] Other 01-03-2021 10:15-0400 Body height 170.18 cm Tondra Mapus Other [facility] Other 01-03-2021 10:15-0400 Body mass index (BMI) [Ratio] 31.01 kg/m2 Tondra Mapus Other [facility] Other 01-03-2021 10:15-0400 Body weight 89.81 kg Tondra Mapus Other [facility] Other 01-03-2021 10:15-0400 Diastolic blood pressure 67 mm[Hg] Tondra Mapus Other [facility] Other 01-03-2021 10:15-0400 Respiratory rate 16 /min Tondra Mapus Other [facility] Other 01-03-2021 10:15-0400 SaO2% (BldA) [Mass fraction] 99 % Tondra Mapus Other [facility] Other 01-03-2021 10:15-0400 Systolic blood pressure 151 mm[Hg] Tondra Mapus Other [facility] Other Functional Status Date Assessment Result Facility 01-17-2022 Functional status Patient at Baseline [facility] Work Phone: 09-29-2021 Functional Status N/A [facility] Mental Status Date Assessment Result Facility 01-17-2022 Cognitive function Cognitive Sta tus Patient at Baseline [facility] Work Phone: Clinical Notes 01-03-2021 to 09-09-2023 Note Date & Type Note Facility 09-09-2023 Note [facility] Cardiology Clinic Note Chief Complaint: Patient here for 6 mo follow up CAD, HFrEF, hypertension, and PVD. Had echo and labs in May 2023. Still has intermittent chest pain, which he states is relieved by nitroglycerin. HPI: Lani Lizama is a 72 y.o. male Cardiology ROS: Review of Systems Cardiovascular: Positive for chest pain (intermittent, unchanged). Musculoskeletal: Positive for arthritis, back pain, joint [...] , Rfl: bumetanide (Bumex) 0.5 mg tablet, TAKE 1 TABLET (0.5 MG) BY MOUTH IN THE MORNING (Patient taking differently: Take 0.5 mg by mouth if needed.), Disp: 90 tablet, Rfl: 3 clopidogrel (Plavix) [...] Take 1 tablet (60 mg) by mouth 2 times daily., Disp: 180 tablet, Rfl: 3 lisinopril 2.5 mg tablet, Take 1 tablet (2.5 mg) by mouth in the morning and at bedtime., Disp: 180 tablet, Rfl: 3 metoprolol succinate XL (Toprol-XL) 100 mg 24 hr tablet, Take 1 tablet (100 mg) by mouth in the morning. Do not crush or chew., Disp: 90 tablet, Rfl: 3 metoprolol succinate XL (Toprol-XL) 50 mg 24 hr tablet, Take 1 tablet (50 mg) by mouth in the morning. Do not crush or chew., Disp: 90 tablet, Rfl: 3 multivitamin capsule, Take 1 capsule by mouth [...] BREAKFAST 30 MINUTES AFTER, Disp: , Rfl: rosuvastatin (Crestor) 40 mg tablet, Take 1 tablet (40 mg) by mouth at bedtime., Disp: 90 tablet, Rfl: 3 Last Recorded Vitals BP 144/86 (BP Location: Left arm, Patient Position: Sitting) Pulse 75 Ht 1.702 m (5' 7 ) Wt 80.3 kg (177 lb) SpO2 96% BMI 27.72 kg/m??? Physical Examination: GENERAL: alert and oriented [...] edema, peripheral pulses are 2+ bilaterally. No rash/skin discoloration present. NEURO: strength/sensation equal and symmetric in bilateral upper and lower extremities. PSYCH: appropriate mood, affect, and judgement. Investigations: Echocardiogram-[facility] Name: LANI LIZAMA Study Date: 01/25/2023 12:56 PM B/P: 138 mmHg/71 mmHg HR: Date of : 1950 Location: [facility] Height: 67 in. Age: 72 year(s) Patient Room : 3141 Weight: 171 lb. Gender: Male Patient Status: InPt BSA: 1.89 m2 Indication: Chest Pain Examination: Echocardiogram (Complete), Lumason Contrast Image Quality: Poor Patient Consent: Procedure explained to patient s p @ c 3 Conclusions Left Ventricle: The left ventricle is normal size. Global left connie (more content not included)... [facility] 05-07-2023 Note [place] Cardiology Consul t Note Reason for visit: Complete heart block on event monitor, HFrEF 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%, atrial tachycardia 05/07/23 Patient is s/p BiV ICD. 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 patient has got good device threshold. he [...] and hypertension. He was recently admitted to [facility] for NSTEMI. Had inpatient stress test and heart cath. Denies SOB but still having chest pain and has taken nitroglycerin a few times for relief. Had CT chest last week s/p discharge. Cardiac catheterization revealed patent bypass grafts and worsening lone pine vessel disease. Medications were adjusted. I had [...] 75 mg ta (more content not included)... [facility] 04-30-2023 Evaluation note Encounter Date Diagnosis Assessment Notes Apr, Chronic HFrEF (heart failure with reduced ejection fraction) (ICD-10 - I50.22) [facility] Other 01-30-2024 NoteUT Cardiology Consult Note Reason for visit: [...] and hypertension. He was recently admitted to [facility] for NSTEMI. Had inpatient stress test and heart cath. Denies SOB but still having chest pain and has taken nitroglycerin a few times for relief. Had CT chest last week s/p discharge. Cardiac catheterization revealed patent bypass grafts and worsening lone pine vessel disease. Medications were adjusted. I had [...] route. insulin detemir (Levemi (more content not included)...[facility]01-30-2024 NotePatient here for follow up echo. He is doing very well, as chest pain and palpitations have subsided. Taking bumex prn now and hasn't been swelling much. Denies SOB and lightheadedness. Review of Systems Musculoskeletal: Positive for arthritis, back pain, joint pain and myalgias. All other systems reviewed and are negative.[facility] 03-18-2023 NoteUT Cardiology Consult Note Reason [...] and hypertension. He was recently admitted to [facility] for NSTEMI. Had inpatient stress test and heart cath. Denies SOB but still having chest pain and has taken nitroglycerin a few times for relief. Had CT chest last week s/p discharge. Cardiac catheterization revealed patent bypass grafts and worsening lone pine vessel disease. Medications were adjusted. I had [...] morning and at bedtim (more content not included)...[facility]12-18-2023 NotePatient here for 2 week follow up per [address]. Bishop. Metoprolol was increased to 100mg to decrease atrial tachycardia. Still gets random chest pain and palpitations. Lightheadedness has been better and has resolved. Denies SOB. Review of Systems Cardiovascular: Positive for chest pain and palpitations. Musculoskeletal: Positive for arthritis, back pain, joint pain and myalgias. All other systems reviewed and are negative.[facility] 03-12-2023 Evaluation note* Encounter Date Diagnosis Assessment Notes [...] PAP-Jardiance was denied, pt given information on [facility] diabetes discount program instructed to apply order [...] hypertension material was printed on diony. Mar, detention current use of insulin (ICD-10 - Z79.4) Mar, Hyperlipidemia (ICD-10 - E78.5) High cholesterol material was printed 05/2022 ldl 69- on statin. Mar, BMI 27.0-27.9,adult (ICD-10 - Z68.27) Eating healthy: tips to make it easier material was printed [facility] Other 12-07-2023 [facility] Cardiology Clinic Note Chief Complaint: Patient here for follow up. Carotid US was done yesterday at [facility]. Says his HR has been elevated lately, around 119. Had his device interrogated a few days ago. Still has to take nitroglycerin at times for chest pain. HPI: Lani Lizama is a 72 y.o. male being seen in post hospital follow up Hospital course: And admitted to the hospital on 01/25 as a direct transfer from [facility], With worsening chest pain [...] to be discharge home today with holding Debindiais and to return coming for upgrade to [...] artery stenosis, Coronary artery disease, Diabetes mellitus (CMS/[facility]), Hyperlipidemia, Hypertension, PVD (peripheral vascular disease) (CMS/HCC), [...] Disp: 180 tablet, Rfl: (more content not included)...[facility]11-21-2023 NotePatient seen for wound check s/p [...] 4-6 weeks. 5. No driving for 1 month.[facility]11-14-2023 NoteBiV- ICD UPGRADE & RV LEAD EXTRACTION PROCEDURE NOTE DATE OF PROCEDURE: 02/12/2023 PERFORMING PHYSICIAN: Dr. Kevin Arteaga RELOCATION DIRECTOR: Dr Jamie Dupree CONSENT: Patient LOCATION: EP Lab PROCEDURE PERFORMED: 1. Implantation of Biventricular ICD ([employer]). 2. Explantation of previously implanted pacemaker generator ([employer]). 3. RV pacing lead extraction. 4. [...] catheterization revealed patent bypass grafts and worsening lone pine vessel disease. Event monitor revealed presence of [...] removed the Johana system and used a AlphaClone CS sheath over a 9F short sheath. [...] stable. COMPLICATIONS: None. IM (more content not included)...[facility]11-14-2023 NotePatient: Lani Lizama Procedure Information Date/Time: 02/12/23 1100 Procedure: Biventricular ICD upgrade - Upgrade PPM to Bi-V- possibly to AICD Location: [facility] TENNIS DIRECTOR 1 / [facility] (Cath) Providers: Kevin Arteaga MD Clinical information reviewed: Allergies Meds Physical Exam Airway Mallampati: III Cardiovascular - normal exam Dental Pulmonary - normal exam Abdominal - normal exam Anesthesia Plan ASA 3 other (Conscious sedation) Anesthetic plan and risks discussed with patient. Use of blood products discussed with patient who consented to blood products. Plan discussed with attending. Additional [facility]* Encounter Date Diagnosis Assessment Notes Treatment Notes Treatment Clinical Notes Jan, Chronic HFrEF (heart failure with reduced ejection fraction) (ICD-10 - I50.22) [facility] Other 11-03-2023 NoteUT Cardiology Consult Note Reason [...] and hypertension. He was recently admitted to [facility] for NSTEMI. Had inpatient stress test and heart cath. Denies SOB but still having chest pain and has taken nitroglycerin a few times for relief. Had CT chest last week s/p discharge. Cardiac catheterization revealed patent bypass grafts and worsening lone pine vessel disease. Medications were adjusted. I had [...] tablet Take 1 tablet (more content not included)...[facility]10-30-2023 NoteOccupational Therapy Occupational Therapy Evaluation Patient Name: Lani Lizama : 1950 Today's Date: 01/28/2023 Time In: 1404 Time Out: 1444 Lani Lizama is a 72 y.o. male with Hx CAD s/p 4v CABG and multiple past stents to VG to OM branch. Last LHC 01/20 at [facility] found patent bypass grafts. 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 Hme meds: ASA, Plavix, Coreg, Jardiance, Imdur 30, Lisinopril 2.5, Lovasatatin 40mg, protonix. Pt and son do not recall any other statins or reaction to statins. 01/25/23 transferred from [facility] for 2 months of worsening [...] first diagonal, SVG to OM --01/25/23 NSTEMI: [facility] 01/25: stable CAD (4/4 bypass grafts [...] lumbar spine Stage 3 chronic kidney disease ([facility]/HCC) Stenosis of abdominal aorta Type 2 diabetes mellitus without complication ([facility]/HCC) AV block, 3rd degree ([facility]/HCC) Age-related nuclear cataract of both eyes Blepharitis of upper and lower eyelids of both eyes Dry eyes 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 edema associated with type 1 diabetes mellitus (CMS/HCC) NSTEMI (non-ST elevated myocardial infarction) ([facility]/HCC) Acute on chronic systolic heart failure, NYHA class 3 ([facility]/HCC) Reduced ejection fraction concurrent with and due to acute heart failure ([facility]/HCC) Past Medical History: Diagnosis Date Carotid artery stenosis Coronary artery disease Diabetes mellitus ([facility]/HCC) Hyperlipidemia Hypertension PVD (peripheral vascular disease) ([facility]/HCC) Third degree heart block ([facility]/HCC) Past Surgical History: Procedure Laterality Date CARDIAC [...] Level of Function Prior Function Level of Zillah: Independent with ADLs and functional transfers, Independent with homemaking 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 , 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) Prior IADLs IADL History Homemaking Responsibilities: Yes [...] taking off regular lo (more content not included)...[facility]10-30-2023 NoteHospital Medicine Discharge Summary Final Discharge Diagnosis: NSTEMI (non-ST elevated myocardial infarction) (CMS/HCC) Non-ischemic cardiomyopathy with EF 10% Admission Diagnosis: NSTEMI (non-ST elevated myocardial infarction) (CMS/HCC) [I21.4] Hospital course: And admitted to the hospital on 01/25 as a direct transfer from [facility], With worsening chest pain [...] 9:15 AM Laila Duarte NP MARCELINO Dudley [facility] 03/07/2023 9:00 AM Pinky Bishop MD [facility] Luis Enrique [facility] Your medication list START taking these [...] Medications These medications were sent to [facility] [address] [place] [address] [address] [place] [address], [facility] [address] dapagliflozin propanediol 10 mg isosorbide mononitrate ER [...] 10*3/uL 141* 163 Chemistry: (more content not included)...[facility]10-30-[address] Arteaga is planning upgrade to BI-V ICD on as outptUnVan [facility]ert [facility]-2023 NoteUTP CARDIOLOGY INPATIENT PROGRESS NOTE Reason [...] MENJIVAR graft. There is (more content not included)...[facility]10-29-2023 NoteHospital Medicine Daily Progress Note - 01/27/2023 12:00 PM; Room: [address] [place] [address] Admission: 01/25/2023 12:05 PM; Length of stay: 2 days THE HOSPITALIST TEAM PREFERS TO USE [employer] CHAT FOR COMMUNICATION 7AM-7PM. IF I DO NOT RESPOND WITHIN 15 MINUTES, PLEASE PAGE ME/CALL THROUGH THE PILLAR MAN. FROM 7PM-7AM, PLEASE PAGE [phone](COVR) Code Status: Full Code Discharge Destination: home [...] Principal Problem: NSTEMI (non-ST elevated myocardial infarction) ([facility]) Assessment and Plan NSTEMI coronary artery disease [...] for: PREALBUMIN, TSH, T3FREE, FREET4, CORTISOL, FEV1, TRP1XVX, DLCO, RVSP, HDL, LDL No results found for: [id number], IRON, TIBC, C3, C4, HARISH, CANCA, ASO, PSA, CEA, CA125, CA199, AFP, CA153 Imaging Cardiac catheterization PROCEDURE PHYSICIAN: Petar Foreman MD . Indications: Lani Lizama is a 72 y.o. male with prior complex cardiac history including bypass surgery and multiple stenting procedures in the past. Last cardiac catheterization in December 2021 at an outside institution showed patent bypass grafts. (more content not included)... [facility]10-29-2023 NoteUTP CARDIOLOGY INPATIENT PROGRESS NOTE Reason [...] Value Ventricular Rate 91 Atrial Rate 91 DC Interval 162 QRS DURATION 180 QT Interval 416 QTC CALCULATION(BAZETT) 511 P Orrtanna 52 R-Orrtanna -41 T Wave Orrtanna 109 Impression Atrial-sensed ventricular-paced rhythm Abnormal ECG [...] Due to suboptimal i (more content not included)...[facility]10-28-2023 NoteHospital Medicine Daily Progress Note - 01/26/2023 12:37 PM; Room: [facility] Admission: 01/25/2023 12:05 PM; Length of stay: 1 days THE HOSPITALIST TEAM PREFERS TO USE [employer] CHAT FOR COMMUNICATION 7AM-7PM. IF I DO NOT RESPOND WITHIN 15 MINUTES, PLEASE PAGE ME/CALL THROUGH THE PILLAR MAN. FROM 7PM-7AM, PLEASE PAGE [phone](COVR) Code Status: Full Code Discharge Destination: home [...] Principal Problem: NSTEMI (non-ST elevated myocardial infarction) ([facility]) Assessment and Plan NSTEMI coronary artery disease [...] for: PREALBUMIN, TSH, T3FREE, FREET4, CORTISOL, FEV1, DHX1GED, DLCO, RVSP, HDL, LDL No results found for: [id number], IRON, TIBC, C3, C4, HARISH, CANCA, ASO, PSA, CEA, CA125, CA199, AFP, CA153 Imaging Cardiac catheterization PROCEDURE PHYSICIAN: Petar Foreman MD . Indications: Lani Lizama is a 72 y.o. male with prior complex cardiac history including bypass surgery and multiple stenting procedures in the past. Last cardiac catheterization in December 2021 at an outside institution showed patent bypass grafts. He presented to the [facility] with symptoms of worsening chest pain over the past 2 months. He was admitted and had rising cardiac troponin. He was referred (more content not included)...[facility]10-28-2023 NoteAdult Nutrition Assessment: Name: Lani Lizama Date: 1950 Date of Visit: 01/26/23 Admission Dx: NSTEMI (non-ST elevated myocardial infarction) (CMS/[facility]) [I21.4] Reason for assessment: high risk (HF) Information obtained from: patient, medical record, and nursing Past Medical History: Diagnosis Date Carotid artery stenosis Coronary artery disease Diabetes mellitus ([facility]) Hyperlipidemia Hypertension PVD (peripheral vascular disease) ([facility]) Third degree heart block ([facility]) Current Medications: ALPRAZolam, 0.5 mg, oral, TID [...] (H) 01/26/2023 0507 BUN 27 (H) 01/26/2023 05 CREATININE 1.77 (H) 01/26/2023 0530 NA 138 01/26/2023 0530 K 4.2 01/26/2023 05 MG 2.0 10/15/2018 0556 HGB 14.4 01/26/2023 [...] compliance w/ MNT Contact the dietitian via AddIn Social -4P Saturday through Saturday or call extension [phone]. For weekends & holidays, the dietitian can be reached via pager [phone] from 9A-3P. Unable to respond to [employer] Social messages on Saturday & .[facility]10-28-2023 Note Attestation signed by Marry Avendano [...] Teaching Physician's Revisions: none Marry Avendano MD [place] Cardiology Subjective Underwent heart cath yesterday. No [...] -- 95 18 94 % -- -- 01/25/231914 109/70 -- -- 98 18 93 % [...] to eliquis on discharge Mickie Plaza MD Student Recruiter P[employer] [facility]10-27-2023 NotePatient: Lani Lizama Procedure Information Date/Time: 01/25/23 1900 Procedures: Coronary angiography Coronary bypass graft study Location: [facility] TENNIS DIRECTOR 3 / [facility] (Cath) Providers: Petar Foreman [...] products. Plan discussed with attending. Additional Equipment RequestsUnVan [facility]ert [facility]10-27-2023 Note Hospital Medicine History and Physical 01/25/2023 10:53 AM THE HOSPITALIST TEAM PREFERS TO USE [employer] FOR COMMUNICATION 7AM-7PM. IF I DO NOT RESPOND WITHIN 15 MINUTES, PLEASE PAGE ME/CALL THROUGH THE PILLAR MAN. FROM 7PM-7AM, PLEASE PAGE [phone](COVR) Chief Complaint No chief complaint on file. History of Present Illness Lani Lizama is an 72 y.o. male who came from [facility] with NSTEMI and troponin of 7000. Patient has a history of CABG and 7 stents. For the last few weeks he has had intermittent chest pain that NTG does relieve. He did have a syncopal episode 3 weeks [address] He saw Dr. Bishop on 01/17 and his lisinopril was decreased. Yesterday he had severe chest pain and went to [facility]. Patient was admitted to [facility] and initial troponin was negative but then [...] edema associated with type 1 diabetes mellitus (CMS/[facility]) 10/12/2022 Gastroesophageal reflux disease 03/02/2022 Increased immunoglobulin 03/02/2022 Irritable bowel syndrome 03/02/2022 Mixed hyperlipidemia 03/02/2022 Nausea 03/02/2022 Overweight with body mass index (BMI) 25.0-29.9 03/02/2022 Right lower quadrant abdominal pain 03/02/2022 Spondylosis of lumbar spine 03/02/2022 Stage 3 chronic kidney disease ([facility]) 03/02/2022 Stenosis of abdominal aorta 03/02/2022 History of coronary artery bypass surgery 11/16/2019 Monoclonal gammopathy 07/28/2018 Type 2 diabetes mellitus without complication ([facility]) 06/03/2012 Coronary atherosclerosis 09/19/2011 Type 1 diabetes mellitus ([facility]) 09/19/2011 Essential hypertension 09/19/2011 AV block, 3rd degree ([facility]) 03/21/2022 Assessment and Plan NSTEMI - transfer from [facility] - will continue heparin drip - cardiology has been consulted and plan to proceed with cardiac catherization today Syncope - patient did have his PM interrogated in [place] Acute renal failure on CKD 3b - in review of chart it looks like his Cr is 1.5 - 1.9 - 2.23 today at [place] - will gently hydrate 0.9NS @ 50 ml/hr Coronary atherosclerosis - CATH 09/2018 bypass grafts patent; mild ISR CATH 12/2021. 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 No rash/sk (more content not included)...[facility] 01-07-2023 Evaluation note* Encounter Date Diagnosis [...] Continue statins. Monitor LFTs and lipid profile. [facility] Other 10-06-2023 Evaluation note* Encounter Date Diagnosis Assessment Notes Treatment Notes Treatment Clinical Notes Dec, Ground glass opacity present on imaging of lung (ICD-10 - R91.8) CT: RUL, RML - 12/2022Dec, Pulmonary nodule (ICD-10 - R91.1) CT: 7mm RML nodule - 12/2022 [facility] Other 10-03-2023 Evaluation note* Encounter Date Diagnosis Assessment Notes Treatment Notes Treatment Clinical Notes Dec, Stage 3b chronic kidney disease (ICD-10 - N18.32) [facility] Other 10-02-2023 Evaluation note* Encounter Date Diagnosis [...] risk for cerebrovascular and cardiovascular disease. Dec, oysterman current use of insulin (ICD-10 - Z79.4) [...] be contributing - must discuss w/ Cardiology [facility] Other 07-11-2023 NotePatient here for 3 mo [...] light-headedness. All other systems reviewed and are negative.[facility] 10-09-2022 NoteCardiology Clinic Note Subjective Lani [...] and hypertension. He was recently admitted to [facility] for NSTEMI. Had inpatient stress test and heart cath. Denies SOB but still having chest pain and has taken nitroglycerin a few times for relief. Had CT chest last week s/p discharge. Cardiac catheterization revealed patent bypass grafts and worsening lone pine vessel disease. Medications were adjusted. I had [...] Ischemic CMP. Update 05/02/2022 Was admitted to [facility] in December 2021 for what appears to be a non-ST elevation myocardial infarction. Cardiac catheterization revealed patent bypass grafts and worsening lone pine vessel disease. Medications were adjusted. He states that he has had no chest pain for the past week. He described what sounded like typical angina with exertion. No orthopnea, no paroxysmal external dyspnea, no lower extremity edema. No claudication. He was admitted to [facility] in March for third-degree heart [...] in the morning., Disp: , Rfl: HYDROcodone-acetaminophen ([place]) 5-325 mg tablet, TAKE 1 TABLET BY MOUTH (more content not included)...[facility]07-03-2023 Evaluation note* Encounter Date Diagnosis Assessment Notes Treatment Notes Treatment Clinical Notes Sep, ASHD (arteriosclerotic heart disease) (ICD-10 - I25.10) [facility] Other 06-21-2023 Evaluation note* Encounter Date Diagnosis Assessment Notes Treatment Notes Treatment Clinical Notes Aug, ASHD (arteriosclerotic heart disease) (ICD-10 - I25.10) [facility] Other 06-02-2023 Evaluation note* Encounter Date Diagnosis [...] inserts to prevent callus formation.Fall precautions. Aug, oysterman (current) use of insulin (ICD-10 - Z79.4) [facility] Other 05-11-2023 Evaluation note* Encounter Date Diagnosis Assessment Notes Treatment Notes Treatment Clinical Notes July, Ground glass opacity present on imaging of lung (ICD-10 - R91.8) CT: RML,RUL infiltrate - 12/2021, CT: RML,RUL improved - 03/2022 CT: RML, RUL, GGO improved - 07/2022 [facility] Other 04-03-2023 Evaluation note* Encounter Date Diagnosis Assessment Notes [...] D and PTH. Advised low phosphorus diet. [facility] Other 03-30-2023 Evaluation note* Encounter Date Diagnosis [...] are reviewed at the office visit. May, oysterman (current) use of insulin (ICD-10 - Z79.4) [...] (ICD-10 - Z12.5) Yearly PSA and ABDELRAHMAN [facility] Other 03-28-2023 Evaluation note* Encounter Date Diagnosis [...] 2. Blood glucose levels stable. According to [employer] cgm download 06/13/2022- 3: Average glucose 190. [...] hypertension material was printed on diony. May, oysterman current use of insulin (ICD-10 - Z79.4) May, Hyperlipidemia (ICD-10 - E78.5) High cholesterol material was printed 05/2022 ldl 69- on statin. May, BMI 27.0-27.9,adult (ICD-10 - Z68.27) Eating healthy: tips to make it easier material was printed [facility] Other 02-25-2023 Evaluation note* Encounter Date Diagnosis Assessment Notes Treatment Notes Treatment Clinical Notes May, Abnormality of lung on CXR (ICD-10 - R91.8) [facility] Other 12-20-2022 Evaluation note* Encounter Date Diagnosis [...] 2. Blood glucose levels stable. According to [employer] cgm download 03/07/2022-03/20/20 22: Average glucose 144. Above 250-0%, >180- 15%, 70-180-85%, <70-0%, <54-0%. CV 24.3%. Reviewed download with pt, no incidence of hypoglcyemia noted. Glucose rise between 12-6pm. D/t current shortage of ozempic, recommend pt reduce dose to 0.5mg once weekly until shipment recieved from [facility], then increase to 1mg once weekly. Reviewed [...] hypertension material was printed on diony. Mar, detention current use of insulin (ICD-10 - Z79.4) Mar, Hyperlipidemia (ICD-10 - E78.5) High cholesterol material was printed 06/2021 ldl 48- on statin. Mar, BMI 26.0-26.9,adult (ICD-10 - Z68.26) Eating healthy: tips to make it easier material was printed 9 pound weight loss from last visit, continue with weight loss efforts [facility] Other 11-10-2022 Evaluation note* Encounter Date Diagnosis Assessment Notes Treatment Notes Treatment Clinical Notes Jan, Diabetes mellitus with chronic kidney disease (ICD-10 - E11.22) [facility] Other 10-19-2022 Discharge summary Author Gagan Shahid [facility] January 17, 2022 3:02pm Note Date/Time January 17, 2022 3 :02pm [facility] [address] [place] [address] Discharge Summary Signed Patient: Lani Lizama MR#: [id number] : 1950 Acct:[id number] Age/Sex: 71 / M Adm Date: 2 Loc: Room: 3R1457-[address]: Gagan Shahid DO Copies to: [...] thought this to be indigestion/GERD 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 Cardiac catheterization was undergone on 01/16/2022 showing [...] levels as before. DISCHARGE INSTRUCTIONS FOR CARDIAC TENNIS DIRECTOR PHONE NUMBER OF YOUR PHYSICIAN: [phone] PROCEDURE: Heart Cath The following instructions have [...] cold, numb, blue or white, call the fermenting cellar dropper immediately. 4. ACTIVITY: You are advised to [...] bottle, follow the instructions on the bottle. [facility] is not responsible for incorrect prescription information [...] signed by Gagan Shahid DO> 01/17/22 1502 [facility] Work Phone: 1(105) 410-118510-19-2022 Progress note Author Luis Alfredo Borges [facility] January 17, 2022 11:47am Note Date/Time January 17, 2022 1 1:47am [facility] [address] [place] [address] Cardiology Progress Note Signed Patient: Lani Lizama MR#: [id number] : 1950 Acct:[id number] Age/Sex: 71 / M Adm Date: 2 Loc: 3T Room: [address] [place] [address] Type: ADM IN Attending Dr: Gagan Shahid [...] is primarily basal inferolateral scar with mild jolene-infarct reversibility. Sum difference score is 5. There [...] is also notable worsening of the patient's lone pine occlusive coronaryheart disease particularly in the microcirculation [...] daily 3. Patient does have a primary fermenting cellar dropper near his home in [place]. We willschedule him 1 follow-up visit in [facility] for left wrist check and also for counseling and reinforcement/referral to phase 2 monitored cardiac rehabilitation which the patient desires to perform in [place]. 4. Instructed the patient that he can [...] Documented By: Luis Alfredo Borges MD 01/17/22 1140 Signed By: <Electronically signed by Luis Alfredo Borges MD> 01/17/22 1147 [facility] Work Phone: 1(610) 510-770410-18-2022 Progress note Author Gagan Shahid [facility] January 16, 2022 4:09pm Note Date/Time January 16, 2022 4 :09pm [facility] [address] [place], [place] [id number] Hospitalist Progress Note Signed Patient: Lani Lizama MR#: [id number] : 1950 Acct:[id number] Age/Sex: 71 / M Adm Date: 2 Loc: Room: [address] [place] [address] Type: ADM IN Attending Dr: Gagan Shahid [...] 09:59 PRN PRN Flush Documented By: Gagan Shahid, 01/16/22 16 07 Signed By: <Electronically signed by Gagan Shahid, DO> 01/16/22 3159 [facility] Work Phone: 1(491) 894-600010-18-2022 [facility] note[facility] Consult note Author Luis Alfredo Borges [facility] January 16, 2022 10:24am Note Date/Time January 16, 2022 1 0:24am [facility] [address] [place] [address] Cardiology Consult Note Signed Patient: Lani Lizama MR#: [id number] : 1950 Acct:[id number] Age/Sex: 71 / M Adm Date: 2 Loc: Room: [address] [place] [address] Type: ADM IN Attending Dr: Gagan Shahid [...] well as history of PCI done here [facility] per Dr. Saldaña in May 2020 who [...] he activated EMS and was taken to [facility] emergency department. There the [...] Lymph # (Auto) 1.0 1.6 (1.00-4.8) x10E3/uL [place]atte # (Auto) 0.4 0.8 (0.0-0.8) x10E3/uL Eos [...] nonspecific abnormality, ST segment, and/or T wave OK, pacemaker, normal Normal tracing: no change compared [...] Alfredo Borges MD> 01/16/22 1024 [facility] Work Phone: [phone]) 830-233710-17-2022 History and physical note Author Gagan Shahid [facility] January 15, 2022 6:56pm Note Date/Time January 15, 2022 6 :02pm [facility] [address] [place] [address] Hospitalist H&P Signed Patient: Lani Lizama MR#: [id number] : 1950 Acct:[id number] Age/Sex: 71 / M Adm Date: 2 Loc: Room: [address] [place] [address] Type: ADM IN Attending Dr: Gagan Shahid [...] need for cardiovascular evaluation he was transferredto [facility] further management and cardiology consultation. Upon [...] negative unless noted below or in [facility]PI [facility] for [facility]-19?: Yes Medical History [...] % (Auto) 13.8 % (.) 01/15/22 15:00 Platte % (Auto) 6.1 % (.) 01/15/22 15:00 Eos % (Auto) 0.9 % (.) 01/15/22 15:00 Baso % (Auto) 0.5 % (.) 01/15/22 15:00 Neut # (Auto) 5.6 x10E3/uL (1.8-7.7) 01/15/22 15:00 Lymph # (Auto) 1.0 x10E3/uL (1.00-4.8) 01/15/22 15:00 Platte # (Auto) 0.4 x10E3/uL (0.0-0.8) 01/15/22 15:00 [...] <Electronically signed by Gagan Shahid DO> 01/15/22 185 [facility] Work Phone: [phone]) 676-358409-19-2022 Evaluation note* Encounter Date Diagnosis Assessment Notes [...] hypertension material was printed on diony. Nov, oysterman current use of insulin (ICD-10 - Z79.4) Nov, Hyperlipidemia (ICD-10 - E78.5) High cholesterol material was printed 06/2021 ldl 48- on statin. Nov, BMI 27.0-27.9,adult (ICD-10 - Z68.27) Eating healthy: tips to make it easier material was printed 22 pound weight loss from last visit, continue with weight loss efforts [facility] Other [id number] Miscellaneous Notes* Telephone Encounter - Vee Day - 10/20/2021 9:42 AM EDT New CBC order. 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 BMI 28.0-28.9,adult BPH associated with nocturia Cholelithiasis Controlled diabetes mellitus with diabetic polyneuropathy, with long-term current use of insulin Diabetic retinopathy Elevated serum immunoglobulin free light chains GERD (gastroesophageal reflux disease) IBS (irritable bowel syndrome) Lumbar spondylosis MGUS (monoclonal gammopathy of unknown significance) Mixed hyperlipidemia Nausea Obesi (more content not included)...[facility] HospitalComment on above: Result Comment: Electronically Signed By: FRANKIE LEMUS, Gagan Bal\Date and Time Signed: 10/17/21 12:19 [id number] Evaluation note* Encounter Date Diagnosis Assessment Notes [...] Blood glucose levels above improved. According to [employer] cgm download 07/04/2021-07/17/2021 : Average glucose 146. [...] hypertension material was printed on diony. Jun, oysterman current use of insulin (ICD-10 - Z79.4) Jun, BMI 30.0-30.9,adult (ICD-10 - Z68.30) Eating healthy: tips to make it easier material was printed see above Jun, Bradycardia (ICD-10 - R00.1) asymptomatic- f/u with cardiology has upcoming apt. If symptomatic i.e. light headed notify sooner [facility] Other 03-21-2022 Evaluation note* Encounter Date Diagnosis Assessment Notes Treatment Notes Treatment Clinical Notes May, Gastro-esophageal reflux disease with esophagitis, without bleeding (ICD-10 - K21.00) [facility] Other 03-08-2022 Evaluation note* Encounter Date Diagnosis [...] His MBD parameters are within the goal. [facility] Other 02-21-2022 Evaluation note* Encounter Date Diagnosis Assessment Notes Treatment Notes Treatment Clinical Notes May, Diabetes mellitus with chronic kidney disease (ICD-10 - E11.22) [facility] Other 01-10-2022 Evaluation note* Encounter Date Diagnosis Assessment Notes Treatment Notes Treatment Clinical Notes Apr, Type 2 diabetes mellitus with hyperglycemia (ICD-10 - E11.65) [facility] Other 01-10-2022 Evaluation note* Encounter Date Diagnosis [...] Blood glucose levels above improved. According to [employer] cgm download 03/28/2021-04/10/19 22: Average glucose 167. [...] was also given rx assist paperwork for [facility] if he does not qualify for BI/jardiance. Ozempic will increase to 1mg once weekly. Apr, Hyperlipidemia (ICD-10 - E78.5) High cholesterol material was printed 07/2020 ldl 64 trig 207- on statin. Apr, HTN (hypertension) (ICD-10 - I10) About hypertension material was printed on diony. Apr, oysterman current use of insulin (ICD-10 - Z79.4) Apr, BMI 30.0-30.9,adult (ICD-10 - Z68.30) Eating healthy: tips to make it easier material was printed see above [facility] Other 11-16-2021 Evaluation note* Encounter Date Diagnosis Assessment Notes Treatment Notes Treatment Clinical Notes Jan, Diabetes mellitus with chronic kidney disease (ICD-10 - E11.22) His blood sugars are within the acceptable range. I have advised him to continue to follow with Kahlila for DM management. He takes Lisinopril and [...] His MBD parameters are within the goal. [facility] Other 10-05-2021 Evaluation note* Encounter Date Diagnosis [...] above target with increased variability. According to [employer] cgm download 12/07/2020-01/03/2021: Average glucose 135. Above [...] hypertension material was printed on diony. Dec, detention current use of insulin (ICD-10 - Z79.4) Dec, BMI 31.0-31.9,adult (ICD-10 - Z68.31) Eating healthy: tips to make it easier material was printed 12 pound weight loss from last visit, continue with weight loss efforts Dec, Bradycardia (ICD-10 - R00.1) Pt asymptomatic. Notified fermenting cellar dropper Dr. Velazquez. Pt has apt on Saturday next week. [facility] Other Evaluation + Plan note No data available for this section General Surgery [place] Evaluation noteNo InformationNoray county memorial hospital [employer] Other Evaluation note* Diagnosis Monoclonal gammopathy- Primary Monoclonal paraproteinemia documented in this encounter [facility]* Diagnosis Onset Date Resolution Status Non-ST elevation myocardial infarction (NSTEMI), initial care episode acute [facility] Work Phone: Evaluation noteNo assessment information available [facility] Work Phone: Evaluation note* Diagnosis Onset Date Resolution Status BMI 26.0-26.9,adult acute Dietary counseling and surveillance acute DM2 (diabetes mellitus, type 2) acute HLD (hyperlipidemia) acute HTN (hypertension) acute [facility] Work Phone: Evaluation note* Diagnosis Onset Date Resolution Status BMI 26.0-26.9,adult acute Dietary counseling and surveillance acute DM2 (diabetes mellitus, type 2) acute HLD (hyperlipidemia) acute HTN (hypertension) acute Chronic HFrEF (heart failure with reduced ejection fraction) acute CKD (chronic kidney disease) stage 3, GFR 30-59 ml/min acute HLD (hyperlipidemia) acute [id number] acute Secondary hyperparathyroidism acute Type 2 diabetes 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 acute [facility] Work Phone: Evaluation note* Diagnosis Onset Date Resolution Status Dietary counseling and surveillance acute HTN (hypertension) acute Chronic HFrEF (heart failure with reduced ejection fraction) acute CKD (chronic kidney disease) stage 3, GFR 30-59 ml/min acute [id number] acute Secondary hyperparathyroidism acute Type 2 diabetes 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 acute Chronic HFrEF (heart failure with reduced ejection fraction) acute Chronic kidney disease acute HTN (hypertension) acute Hypercholesterolemia acute Ischemic cardiomyopathy acut e Pulmonary nodule acute Type 2 diabetes mellitus with hyperglycemia acute Medicare annual wellness visit, subsequent noneactive Screening PSA (prostate specific antigen) noneactive [facility] Work Phone: History general Narrative - [...] 11-25-16 Hospitalization History HEART STENT PLACED 03-20 [facility] Other [employer]lp[employer] general Narrative - ReportedNortCognection Other [employer] general Narrative - Reported* Type Description Date [...] 11-25-16 Hospitalization History HEART STENT PLACED 03-20 [facility] Other [employer] general Narrative - Reported* Type Description Date [...] 06/2020 Hospitalization History Chest 05/2012 Hospitalization History GOWDIN MCO STENTS PLACED 11-25-16 Hospitalization History HEART STENT PLACED 03-20 [facility] Other [employer] general Narrative - Reported* Type Description Date [...] 11-25-16 Hospitalization History HEART STENT PLACED 03-20 [facility] Other [employer] general Narrative - Reported* Type Description Date [...] STENT PLACED 03-20 Hospitalization History SEE ABOVE [facility] Other History general Narrative - ReportedNoray county memorial hospital [employer] Other [employer]re[employer] general Narrative - Reported* Type Description Date [...] STENT PLACED 03-20 Hospitalization History SEE ABOVE [facility] Other [employer] general Narrative - Reported* Type Description Date [...] STENT PLACED 03-20 Hospitalization History SEE ABOVE [facility] Other History general Narrative - Reported* Type [...] STENT PLACED 03-20 Hospitalization History SEE ABOVE [facility] Other History general Narrative - Reported* Type [...] History GGO and Pulmonary nodules Medical History OK 01/21 Medical History Defibrilator 02/21 Surgical History [...] 03-20 Hospitalization History SEE ABOVE Hospitalization History OK 01/21 [facility] Other Hospital Discharge instructions No data available for this section General Surgery [place] [facility] Discharge instructions Additional Instructions Monitor glucose levels as before. DISCHARGE INSTRUCTIONS FOR CARDIAC TENNIS DIRECTOR PHONE NUMBER OF YOUR PHYSICIAN: [phone] PROCEDURE: Heart Cath The following instructions have [...] cold, numb, blue or white, call the fermenting cellar dropper immediately. 4. ACTIVITY: You are advised to [...] bottle, follow the instructions on the bottle. [facility] is not responsible for incorrect prescription information provided by the patient during their visit. Do not stop your medications without consulting your health care provider. Please take the list with you to your next doctor's appointment. [facility] Work Phone: Progress note No data available for this section General Surgery [place] Summary Purpose Family History No Family History [...] stage 3, GFR 30-59 ml/min HLD (hyperlipidemia) [id number] Secondary hyperparathyroidism Type 2 diabetes mellitus with diabetic chronic kidney disease 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 6 month follow up MEDICARE WELLNESS Reason for Visit Dietary counseling a nd surveillance HTN (hypertension) Chronic HFrEF (heart failure with reduced ejection fraction) CKD (chronic kidney disease) stage 3, GFR 30-59 ml/min [id number] Secondary hyperparathyroidism Type 2 diabetes mellitus with [...] section and content) DATE CREATED AUTHOR 11/29/2018 [facility] DATE CREATED AUTHOR AUTHOR'S ORGANIZ ATION 10/20/2021 [facility] DATE CREATED AUTHOR AUTHOR'S ORGANIZ ATION 10/25/2021 [facility] DATE CREATED AUTHOR AUTHOR'S ORGANIZ ATION 08/13/2022 [facility] [place] [facility] DATE CREATED AUTHOR AUTHOR'S ORGANIZ ATION 05/16/2023 [facility] DATE CREATED AUTHOR AUTHOR'S ORGANIZ ATION 09/25/2023 [facility] REASON FOR VISIT (unrecogniz ed [...] Provider Active Start: June 24, 2023 Kingsley Woods MD Attending Provider Active Start : June 24, 2023 Team Status: Inactive Member Role Status Dates Harley Crespo DO Primary Care Provider Active Start: July 02, 2023 End: July 02, 2023 Kingsley Woods MD Attending Provider Active Start : July 02, 2023 End: July 02, 2023 Team Status: Inactive Member Role Status Dates Harley Crespo DO Primary Care Provide r, Attending Provider Active Start: August 12, 2023 End: August 12, 2023 Mold Stacker Relationship Specialty Start Date End Date Harley Crespo DO [address] [place] [address] PCP - General Internal Medicine 07/18/18 Team Status: Inactive Member Role Status Dates Harley Crespo DO Primary Care Provider Active Gagan Shahid DO Admit Provider, Attending Provider Active Team Status: Active Member Role Status Dates Harley Crespo DO Primary Care Provider Active Ryan Garrett APRN INDUSTRIAL DESIGNER-C Active Valerie Gallegos PA-C Active Arlen Kwong APRN Attending Provider Active Team Status: Inactive Member Role Status Dates Arlen Kwong APRN Attending Provider Active Start: March 12, 2023 End: March 12, 2023 Team Status: Inactive Member Role Status Dates Harley Crespo DO Primary Care Provider Active Start: March 12, 2023 End: March 12, 2023 Ryan Garrett APRN INDUSTRIAL DESIGNERNatividad Active Sta rt: March 12, 2023 End: March 12, [address]C Active St art: March 12, 2023 End: [...] or prosecute any alcohol or drug abuse patient.[facility] Goals (unrecognized section and content) [...] BE BASED ON THE PRIMARY CLINICAL RECORDS. [facility] [employer] [facility]. provides no warranty or guarantee of the accuracy or completeness of information in this document.
--- NOTE | 2023-09-26 07:29 | PC.NURSE ---
pt arrived per ems for chest pain. pt states feeling short of breath. O2 SAT 92% pt placed on 2L of O2 per NC. O2 SAT up to 96%
--- NOTE | 2023-09-26 07:31 | ED_ITS ---
HPI - Chest Pain General Chief Complaint: Chest Pain Stated Complaint: CHEST PAIN Time Seen by Provider: 09/26/23 07:31 Source: patient Mode of arrival: ambulance History of Present Illness HPI narrative: This patient is here today complaining of chest pain. He states that actually woke him up from his sleep at approximately 5:30 AM. He is taken 3 nitroglycerin that did not help him. He said he has been using approximately 1 nitroglycerin tablet per day over the last several days and it was taking away his pain. He has well-documented coronary disease. He says he has had a number of coronary bypass grafts done in the past and then after that time he has had continued coronary disease and has approximately 7 coronary stents. He has been compliant with his medication does not use tobacco products. He says he just feels like a deep aching in his midsternal area with some aching in his arms as well. His blood pressure is modestly elevated on arrival here will be checked with a manual cuff. He denies any shortness of breath he is not vomiting he is not diaphoretic. He sees the cardiology group at the [facility]. Related Data Home Medications ?Medication ?Instructions ?Recorded ?Confirmed alprazolam 0.5 mg tablet (Xanax) 0.5 mg PO BID 01/24/23 09/26/23 aspirin 81 mg tablet,delayed 81 mg PO DAILY 01/24/23 09/26/23 release (Adult Aspirin Regimen) bumetanide 0.5 mg tablet 0.5 mg PO .MORNING 01/24/23 09/26/23 carvedilol 25 mg tablet 12.5 mg PO Q12H 01/24/23 09/26/23 cetirizine 10 mg capsule (All Day 10 mg PO DAILY 01/24/23 09/26/23 Allergy (cetirizine)) cholecalciferol (vitamin D3) 25 25 mcg PO DAILY 01/24/23 09/26/23 mcg (1,000 unit) tablet (Vitamin D3) clopidogrel 75 mg tablet 75 mg PO .HS 01/24/23 09/26/23 docusate sodium 100 mg capsule 100 mg PO DAILY 01/24/23 09/26/23 (Colace) empagliflozin 10 mg tablet 10 mg PO QAM 01/24/23 09/26/23 (Jardiance) insulin aspart U-100 100 unit/mL 1 sliding scale dose subcut 01/24/23 09/26/23 (3 mL) subcutaneous pen (Novolog USEASDIRECTD FlexPen U-100 Insulin aspart) insulin detemir U-100 100 unit/mL 1 unit subcut DAILY 01/24/23 09/26/23 (3 mL) subcutaneous pen (Levemir FlexPen) isosorbide mononitrate 60 mg 60 mg PO BID 01/24/23 09/26/23 tablet,extended release 24 hr lisinopril 2.5 mg tablet 2.5 mg PO DAILY 01/24/23 09/26/23 lovastatin 40 mg tablet 40 mg PO .PM 01/24/23 09/26/23 multivitamin with iron-mineral 1 tab PO DAILY 01/24/23 09/26/23 nitroglycerin 0.4 mg sublingual 0.4 mg sublingual Q5M PRN chest 01/24/23 09/26/23 tablet pain pantoprazole 40 mg tablet,delayed 40 mg PO DAILY 01/24/23 01/24/23 release potassium chloride 10 mEq 10 meq PO DAILY 01/24/23 09/26/23 tablet,extended release semaglutide 1 mg/dose (2 mg/1.5 1 mg subcut QWEEK 01/24/23 09/26/23 mL) subcutaneous pen injector (Ozempic) Allergies Allergy/AdvReac Type Severity Reaction Status Date / Time No Known Drug Allergies Allergy Verified 01/24/23 15:28 [facility] Medical History (Updated 09/26/23 @ 11:38 by Luis Alfredo Gallegos MD) AMI (acute myocardial infarction) ?I21.9 - Acute myocardial infarction, unspecified (ICD-10) Pacemaker ?Z95.0 - Presence of cardiac pacemaker (ICD-10) Anxiety ?F41.9 - Anxiety disorder, unspecified (ICD-10) GERD (gastroesophageal reflux disease) ?K21.9 - Gastro-esophageal reflux disease without esophagitis (ICD-10) Hypertension ?I10 - Essential (primary) hypertension (ICD-10) Diabetes ?E11.9 - Type 2 diabetes mellitus without complications (ICD-10) Surgical History (Updated 01/24/23 @ 19:49 by Cammy Adler) History of heart artery stent ?Z95.5 - Presence of coronary angioplasty implant and graft (ICD-10) Social History (Updated 01/24/23 @ 20:00 by Cammy Adler) Within the past year, how often did you have a drink containing alcohol: never Within the past year, how often did you have six or more drinks on one occasion: never Score interpretation: A score less than 4 is consistent with normal alcohol consumption. Smoking status: Former smoker Non-prescribed substance use: denies use Previous occupational history: works 1 day a week Highest level of school completed/degree received: high school graduate Are you now , , , , never or living with a partner: In a typical week, how many times do you talk on the telephone with family, friends, or neighbors: 3 or more times per week How often do you get together with friends or relatives: once per week How often do you attend episcopalian or congregation services: 1-3 times per year Little interest or pleasure in doing things: not at all Feeling down, depressed, or hopeless: not at all Feel stressed/tense/nervous/anxious/difficulty sleeping: to some extent Life stressors: other Life stressor details: getting older Exam Narrative Exam Narrative: Awake alert pleasant is not anxious at this time skin is warm and dry mucous memories are moist and pink. He rates his pain right now 4/10. HEENT shows no scleral icterus pallor or evidence of anemia. His lungs are clear with no wheeze rales or rhonchi. Heart sounds I do not hear any heart murmur and he denies any history of valvular heart disease. His pacemaker is working his twelve-lead EKG was taken shows pacer function normal. Extremities are warm and dry good perfusion no evidence of peripheral ischemia. 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 He says at all genetic. Cognition and mentation neurological examination are all normal. Constitutional Vital Signs, click to edit/add: Last Vital Signs Temp 98 F 09/26/23 07:10 Pulse 80 09/26/23 09:40 Resp 15 09/26/23 09:40 BP 141/87 09/26/23 09:40 Pulse Ox 96 09/26/23 09:40 O2 Del Method Room Air 09/26/23 07:29 Course Vital Signs Vital signs: Vital Signs Blood Pressure 178/122 H 09/26/23 07:08 Temperature 98 F 09/26/23 07:10 Pulse Rate 80 09/26/23 09:40 Respiratory Rate 15 09/26/23 09:40 Blood Pressure 141/87 09/26/23 09:40 Pulse Oximetry 96 09/26/23 09:40 Oxygen Delivery Method Room Air 09/26/23 07:29 MDM - Chest Pain MDM Narrative Medical decision making narrative: This patient's initial troponin level is normal however the repeat level done at 10:00 AM is 2962. At that time the patient was placed on a heparin drip. His nitroglycerin drip had completely eliminated all his pain pressure and discomfort. 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 Stuart. We do anticipate transfer to [place]. This patient's had numerous stents post bypass surgery. His family members indicate his ejection fraction is approximately 10 or 15%. Surprisingly he does not have any edema and has been pretty functional. We are awaiting acceptance of transfer. I spoke with Dr. Domenico Oh his boiler tenders supervisor he is excepted him in transfer. The patient is pain-free with stable vital signs at this time so we do not feel that [facility] is necessary at this time this was explained to the patient and he is in agreement with the treatment plan. I also spoke with the hospitalist at [facility] to update him on the status and treatment plan Lab Data Labs: Lab Results 09/26/23 09/26/23 09/26/23 Range/Units 07:30 08:00 10:01 WBC 10.5 (4.0-11.0) 10^3/uL RBC 5.63 (4.70-6.10) 10^6/uL Hgb 16.0 (14.0-18.0) g/dL Hct 49.4 (42.0-54.0) % MCV 87.7 (80.0-94.0) fL MCH 28.4 (25.9-34.0) pg MCHC 32.4 (29.9-35.2) g/dL RDW 14.3 (11.0-15.0) % Plt Count 194 (150-450) 10^3/uL MPV 10.0 (9.5-13.5) fL Neut % (Auto) 70.7 (43.0-75.0) % Lymph % (Auto) 18.7 L (20.5-60.0) % [place] % (Auto) 7.3 (1.7-12.0) % Eos % (Auto) 2.4 (0.9-7.0) % Baso % (Auto) 0.6 (0.2-2.0) % Neut # (Auto) 7.4 H (1.4-6.5) 10^3/uL Lymph # (Auto) 2.0 (1.2-3.8) 10^3/uL [place] # (Auto) 0.8 (0.3-0.8) 10^3/uL Eos # (Auto) 0.3 (0.0-0.7) 10^3/uL Baso # (Auto) 0.1 (0.0-0.1) 10^3/uL Abs Immat Gran (auto) 0.03 (0.00-0.03) 10^3/uL Imm/Tot Granulo (auto) 0.3 (0.0-0.5) % PT 10.5 (9.0-11.6) sec INR 0.99 APTT 28.8 (22.3-36.2) sec Sodium 141 (136-145) mmol/L Potassium 4.2 (3.5-5.1) mmol/L Chloride 104 (98-107) mmol/L Carbon Dioxide 24.8 (21.0-32.0) mmol/L Anion Gap 16.4 BUN 26.0 H (7.0-18.0) mg/dL Creatinine 1.72 H (0.70-1.30) mg/dL Est GFR ( Amer) 48 L (>=60) Est GFR (Non-Af Amer) 39 L (>=60) BUN/Creatinine Ratio 15.1 Glucose 206 H (74-106) mg/dL Calcium 9.2 (8.5-10.1) mg/dL Total Bilirubin 0.7 (0.2-1.0) mg/dL AST 26 (15-37) U/L ALT 32 (16-63) U/L Alkaline Phosphatase 146 H (46-116) U/L Troponin I High Sens 45.2 2962.7 H* (4.0-76.1) pg/mL Total Protein 8.1 (6.4-8.2) g/dL Albumin 4.1 (3.4-5.0) g/dL Globulin 4.0 g/dL Albumin/Globulin Ratio 1.0 Discharge Plan Discharge Chief Complaint: Chest Pain Clinical Impression: Non-ST elevated myocardial infarction (non-STEMI) Patient Disposition: [facility] Time of Disposition Decision: 11:37 Mode of Transportation: EMS Prescriptions / Home Meds: No Action potassium chloride 10 mEq tablet extended release 10 meq PO DAILY bumetanide 0.5 mg tablet 0.5 mg PO .MORNING docusate sodium [Colace] 100 mg capsule 100 mg PO DAILY pantoprazole 40 mg tablet,delayed release (DR/EC) 40 mg PO DAILY isosorbide mononitrate 60 mg tablet extended release 24 hr 60 mg PO BID All Day Allergy (cetirizine) 10 mg capsule 10 mg PO DAILY Jardiance 10 mg tablet 10 mg PO QAM alprazolam [Xanax] 0.5 mg tablet 0.5 mg PO BID clopidogrel 75 mg tablet 75 mg PO .HS lisinopril 2.5 mg tablet 2.5 mg PO DAILY lovastatin 40 mg tablet 40 mg PO .PM aspirin [Adult Aspirin Regimen] 81 mg tablet,delayed release (DR/EC) 81 mg PO DAILY multivitamin with iron-mineral Tablet 1 tab PO DAILY cholecalciferol (vitamin D3) [Vitamin D3] 25 mcg (1,000 unit) tablet 25 mcg PO DAILY insulin aspart U-100 [Novolog FlexPen U-100 Insulin] 100 unit/mL (3 mL) insulin pen 1 sliding scale dose subcut USEASDIRECTD Levemir FlexPen 100 unit/mL (3 mL) insulin pen 1 unit subcut DAILY Ozempic 1 mg/dose (2 mg/1.5 mL) pen injector 1 mg subcut QWEEK nitroglycerin 0.4 mg tablet, sublingual 0.4 mg sublingual Q5M PRN (Reason: chest pain) carvedilol 25 mg tablet 12.5 mg PO Q12H Patient Comments: Patient takes 12.5mg twice a day Print Language: Greek Referrals: Harley oGodman DO [Primary Care Provider] - 1 week
--- NOTE | 2023-09-26 07:33 | ECG_ITS ---
[facility] Test Date: 2023-09-26 Pat Name: LANI LIZAMA Department: Room: - Gender: Male Test Case Developer: : 1950 Requested By: DEVEN CRESPO Order Number: [id number] Reading MD: DEVEN CRESPO Measurements Intervals [place] Rate: 98 P: 82 [place]: 162 QRS: 152 QRSD: 148 T: 108 QT: 408 QTc: 463 Interpretive Statements 32458 Electronic ventricular pacemaker 9120 atypical ECG Compared to ECG 01/24/2023 15:30:21 No significant changes Electronically Signed On 09-26-2023 21:44:39 EDT by DEVEN CRESPO
--- NOTE | 2023-09-26 07:33 | XR_ITS ---
The [address] [address] Patient Name: LANI LIZAMA MRN: [id number] date: 1950 Sex: M Assigned Patient Location: ER Current Patient Location: ED.MAIN Accession/Order Number: [id number] Exam Date: 09/26/2023 07:40 Report Date: 09/26/2023 08:00 At the request of: HENRRY REYEZ Procedure: XR chest 1V EXAM: XR chest 1V HISTORY: . Chest pain . COMPARISON: 01/24/2023 TECHNIQUE: Single view of the chest. FINDINGS: Heart is normal in size. Pacer is noted. There is slight prominence of the bronchovascular markings. Lungs are free of focal infiltrates. No effusions are noted. Median sternotomy sutures are noted. XR/XR chest 1V IMPRESSION: Slight prominence of the bronchovascular markings. Findings could be chronic. Bronchitis cannot be excluded. Clinical correlation is suggested. Electronically authenticated by: SHANNON TAVERA Date: 09/26/2023 08:00
[2023-09-26 07:47] LABS: Basophils Absolute Auto 0.1 10^3/uL (0.0-0.1); Basophils Percent Auto 0.6 % (0.2-2.0); Eosinophils Absolute Auto 0.3 10^3/uL (0.0-0.7); Eosinophils Percent Auto 2.4 % (0.9-7.0); Hematocrit 49.4 % (42.0-54.0); Immature Granulocytes Abs Auto 0.03 10^3/uL (0.00-0.03); Immature Granulocytes Pct Auto 0.3 % (0.0-0.5); Lymphocytes Percent Auto 18.7 % (20.5-60.0); Mean Corpuscular HGB Conc 32.4 g/dL (29.9-35.2); Mean Corpuscular Hemoglobin 28.4 pg (25.9-34.0); Mean Corpuscular Volume 87.7 fL (80.0-94.0); Monocytes Absolute Auto 0.8 10^3/uL (0.3-0.8); Monocytes Percent Auto 7.3 % (1.7-12.0); Neutrophils Absolute Auto 7.4 10^3/uL (1.4-6.5); Neutrophils Percent Auto 70.7 % (43.0-75.0); Platelet Count 194 10^3/uL (150-450); Red Blood Count 5.63 10^6/uL (4.70-6.10); Red Cell Distribution Width 14.3 % (11.0-15.0); White Blood Count 10.5 10^3/uL (4.0-11.0)
[2023-09-26] MEDS: MORPHINE SULFATE 2 MG/ML SYRINGE IV (07:55)
[2023-09-26] MEDS: NITROGLYCERIN IN 5 % DEXTROSE 50 MG/250 ML INFUS..BTL IV (07:56)
[2023-09-26 08:16] LABS: Alanine Aminotransferase 32 U/L (16-63); Anion Gap 16.4; Aspartate Amino Transferase 26 U/L (15-37); BUN Creatinine Ratio 15.1; Bilirubin Total 0.7 mg/dL (0.2-1.0); Calcium 9.2 mg/dL (8.5-10.1); Carbon Dioxide 24.8 mmol/L (21.0-32.0); Chloride 104 mmol/L (98-107); Estimated GFR (African America 48 (>=60); Estimated GFR (Non-African Ame 39 (>=60); Glucose 206 mg/dL (74-106); Potassium 4.2 mmol/L (3.5-5.1); Sodium 141 mmol/L (136-145); Troponin I High Sensitivity 45.2 pg/mL (4.0-76.1)
[2023-09-26 08:17] LABS: Albumin Level 4.1 g/dL (3.4-5.0); Alkaline Phosphatase 146 U/L (46-116); Total Protein 8.1 g/dL (6.4-8.2)
[2023-09-26 08:18] LABS: INR 0.99; Prothrombin Time 10.5 sec (9.0-11.6)
[2023-09-26 10:44] LABS: Troponin I High Sensitivity 2962.7 pg/mL (4.0-76.1)
[2023-09-26 11:12] LABS: Partial Thromboplastin Time 28.8 sec (22.3-36.2)
[2023-09-26] MEDS: HEPARIN SODIUM (PORCINE) 5,000 UNIT/ML VIAL 2700 UNIT IV (11:30)
[2023-09-26] MEDS: HEPARIN SODIUM,PORCINE/D5W 25,000 UNIT/500 ML IV.SOLN 18 UNIT IV (11:31)
[2023-09-26 14:52] LABS: Troponin I High Sensitivity 8614.2 pg/mL (4.0-76.1)
== END 2023-09-26 15:24 | disposition short-term general hospital (02) ==
PROVIDERS: Emergency Provider Emergency Medicine Emergency Medical Services; PCP Internal Medicine
DX: I21.4 Non-ST elevation (NSTEMI) myocardial infarction (principal); Z95.1 Presence of aortocoronary bypass graft; Z95.5 Presence of coronary angioplasty implant and graft; Z87.891 Personal history of nicotine dependence
CPT/HCPCS: 36415; 71045; 80053; 84484; 85025; 85610; 85730; 93005; 96365; 96366; 96368; 96375; 96376; 99291; J1644; J2270; J2305

== ENCOUNTER 2023-12-30 08:14 | Outpatient (OUT) | payer MEDICARE, OTHER, SELFPAY ==
--- OUTSIDE RECORDS SUMMARY | 2023-12-30 08:20 | XMS_ITS | CCD ---
Author Organization [facility] CliniSywy Care Team Providers Care Personal Property Assessor Name Role Phone ELTAHAWY, EHAB A Admitting Unavailable ELTAHAWY, EHAB A Attending Unavailable HARLEY CRESPO Referring Unavailable HARLEY CRESPO Primary Care Unavailable ELTAHAWY, NETOAB A Surgeon Unavailable IA Procedure Practitioner Unavailab le ELTAHAWY, EHAB A Admitting Unavailable ELTAHAWJo, PINKY A Attending Unavailable HARLEY CRESPO Referring Unavailable HARLEY CRESPO Primary Care Unavailable Arlen Kwong Unavailable [place] Unavailable Shannon Escobar Unavailable HARLEY CRESPO Primary Care Physician [phone] Harley Crespo DO Primary Care Provider DO Harley Crespo Primary Care Provider [phone] JULY Kwong Attending Provider [phone] DO Gagan Shahid Admit Provider DO Gagan Shahid Attending Provider [phone] Harley Crespo Unavailable VIJAY, DR LOWE Consulting Unavailable CHERIE, DR CARVALHO Primary Care Unavailable ELTAHAWJo, DR LOWE Attending Unavailable ELTAHAWY, DR LOWE Admitting Unavailable VLAD, DR PARUL [...] DR CARVALHO Attending Unavailable BALL, DR CARVALHO Admmayela Unavailable RASTEGAR, HAZEL Consulting Unavailable LATISHA, KINGSLEY Admitting Unavailable LATISHA, KINGSLEY Attending Unavailable BALL, DR CARVALHO Primary Care Unavailable LATISHA, KINGSLEY Consulting Unavailable BALL, DR CARVALHO Admitting Unavailable BALL, DR CARVALHO Attending Unavailable BALL, DR CARVALHO Primary Care Unavailable BALL, DR CARVALHO Consulting Unavailable ZIEBER, DR HIGINIO Sanchez Consulting Unavailable MAPUS, TONDRA Consulting Unavailable BALL, DR CARVALHO Primary Care [...] Unavailable PAY ., DR GORDILLO Consulting Unavailable AURELIO, GAGAN Consulting Unavailable MihaelaDenita Unavailable DO Harley Crespo Primary Care Provider JULY Kwong Attending Provider [phone] Arlen Kwong Attending Unavailable Arlen Kwong Admitting Unavailable Harley Crespo Primary Care Unavailable RON TAVERA Attending Unavailable PEPE, TIN Referring Unavailable ELTAHAWY, PINKY Attending Unavailable JENNI, KEVIN Referring Unavailable JENNI, KEIVN Referring Unavailable JENNI, KEVIN Referring Unavailable JENNI, KEVIN Referring Unavailable JENNI, KEVIN Referring Unavailable JENNI, KEVIN Admitting Unavailable JENNI, KEVIN Attending Unavailable HORANI, DEJUAN Admitting Unavailable NESTOR, HEIDY Attending Unavailable MOUKARBEL, LUISITO Referring Unavailable CRISTOPHER, EMEKA Referring Unavailable CRISTOPHER, EMEKA Referring Unavailable CRISTOPHER, EMEKA Referring Unavailable CRISTOPHER, EMEKA Referring Unavailable BARAZI, LAILA Attending Unavailable ELTAHAWY, PINKY Attending Unavailable JENNI, KEVIN Referring Unavailable WITHERELL, DEISY Attending Unavailable JENNI, KEVIN Referring Unavailable CRISTOPHER, EMEKA Referring Unavailable JENNI, KEVIN Referring Unavailable BARAZI, LAILA Attending Unavailable ELTAHAWY, PINKY Attending Unavailable CRISTOPHER, EMEKA Referring Unavailable HOY, DELTA Referring Unavailable LAURA, SP Attending Unavailable PEDROABIEL Admitting Unavailable MOUKARBEL, LUISITO Referring Unavailable HORANI, DEJUAN Referring Unavailable HORANI, DEJUAN Referring Unavailable PEPE, TIN Referring Unavailable JENNI, KEVIN Attending Unavailable BARAZI, LAILA Attending Unavailable JENNI, KEVIN Referring Unavailable ELTAHAWY, PINKY Attending Unavailable Allergies Allergy Classification Reported Allergen(s) Allergy Type Date of Onset Reaction(s) Facility (1 source) 31285,00; Translations: [Unknown] Propensity to adverse reactions (disorder) 9 [facility] Repository Medications Current Medications Medication Drug [...] 2020 4:21am cholecalciferol 0.025 mg oral capsule (8 sources) Vitamin D Start: take 25 ug [...] tablet (20 sources) P2Y12 Platelet Inhibitor Start: 10-17-2023 take 75 mg by mouth once daily Clopidogrel Active 75 MG PO Daily October 17, 2023 10:06am Start: 06-18-2023 End: 10-17-2023 take 1 tablet by mouth once daily Clopidogrel Discontinued 0 .ROUTE .COMPLEX 90 June 18, 2023 4:03pm October 17, 2023 10:10am TAKE 1 TABLET BY MOUTH EVERY DAY [...] Insulin) 100 unit/mL (3 mL) insulin pen (13 sources) Start: 10-17-2023 Insulin Aspart U-100 (Novolog Flexpen U-100 Insulin) 100 unit/mL (3 mL) insulin pen Active 0 SUBCUT .COMPLEX October 17, 2023 10:56am 6-8-10-12 units according to meal size ac tid. Corrective scale 1:20 ac, tid (HS >200 1/2 dose) Subcutaneous ac, hs; (expect up to 40 units/day) Start: 10-17-2023 End: 10-17-2023 Insulin Aspart U-100 (Novolo g Flexpen U-100 Insulin) 100 unit/mL (3 mL) insulin pen Discontinued 0 SUBCUT .COMPLEX October 17, 2023 10:07am October 17, 2023 10:56am 12 units according to meal size; 4-7 units for snack. Corrective scale 1:20 ac, tid (HS >200 1/2 dose) Subcutaneous ac, hs; (expect up to 40 units/day) Start: 10-17-2023 Insulin Aspart U-100 (Novolog Flexpen U-100 Insulin) 100 unit/mL (3 mL) insulin pen Active 0 SUBCUT .COMPLEX October 17, 2023 10:07am 12 units according to meal size; 4-7 units for snack. Corrective scale 1:20 ac, tid (HS >200 1/2 dose) Subcutaneous ac, hs; (expect up to 40 units/day) Start: 06-18-2023 End: 06-18-2023 inject 5 [IU] [...] times depending on blood sugar Start: 06-18-2023 End: 10-17-2023 inject 4 [IU] by subcutaneous injection once daily at mealtime Insulin Aspart U-100 (Novolog Flexpen U-100 Insulin) 100 unit/mL (3 mL) insulin pen Discontinued 0 SUBCUT .COMPLEX June 18, 2023 12:00am October 17, 2023 10:10am 6-8-10-12 units according to meal size; 4 units for snack. Corrective scale 1:20 ac, tid (HS >200 1/2 dose) Subcutaneous ac, hs; (expect up to 40 units/day) Start: 06-18-2023 inject 4 [IU] by sub [...] Flexpen) 100 unit/mL (3 mL) insulin pen (7 sources) Start: 10-17-2023 inject 7 [IU] by subcutaneous injection twice daily Insulin Detemir U-100 (Levemir Flexpen) 100 unit/mL (3 mL) insulin pen Active 7 UNIT SUBCUT Twice daily October 17, 2023 10:08am Start: 06-18-2023 End: 10-17-2023 inject 5 [IU] by subcutaneous injection twice daily Insulin Detemir U-100 (Levemir Flexpen) 100 unit/mL (3 mL) insulin pen Discontinued 5 UNIT SUBCUT Twice daily June 18, 2023 12:00am October 17, 2023 10:10am Start: 06-18-2023 inject 5 [IU] by sub cutaneous injection twice daily Insulin Detemir U-100 (Levemir Flexpen) 100 unit/mL (3 mL) insulin pen Active 5 UNIT SUBCUT Twice daily June 18, 2023 12:00am Humulin N (10 sources) Start: 09-07-2021 inject 15 [IU] by [...] succinate 100 mg extended release oral tablet (16 sources) beta-Adrenergic Jason Start: 10-17-2023 take 100 mg by mouth once daily Metoprolol Succinate Active 100 MG PO Daily October 17, 2023 10:09am Start: 10-17-2023 take 50 mg by mouth once daily Metoprolol Succinate Active 50 MG PO Daily October 17, 2023 12:00am Start: 06-18-2023 End: 10-17-2023 take 150 mg by mouth once daily Metoprolol Succinate Discontinued 150 MG PO Daily June 18, 2023 12:00am October 17, 2023 10:10am take 1 tablet by bhavik th every [...] day Active nitroglycerin 0.4 mg sublingual tablet (13 sources) Nitrate Vasodilator Start: 06-18-2023 Nitroglyce rin [...] tablet (20 sources) Proton Pump Inhibitor Start: 12-09-19 take 1 tablet by mouth once daily at breakfast Pantoprazole Active 0 .ROUTE .COMPLEX 90 December 09, 2023 8:47pm TAKE 1 TABLET BY MOUTH DAILY ON AN EMPTY STOMACH FOLLOWED BY BREAKFAST 30 MINUTES AFTER FOR 90 DAYS Start: 10-17-2023 End: 12-09-2023 take 40 mg by mouth once daily Pantoprazole Discontinu ed 40 MG PO Daily October 17, 2023 12:00am December 09, 2023 8:47pm Start: 07-10-2021 End: 08-12-2023 take 40 mg by mouth once daily Pantoprazole Discontinu ed 40 MG PO Daily July 10, 2021 12:00am August 12, 2023 8:44am rosuvastatin calcium 40 mg oral tablet (18 sources) HMG-CoA Reductase Inhibitor Start: 06-18-2023 take 40 mg by mouth once daily Rosuvastatin Active 40 MG PO Daily June 18, 2023 12:00am take 1 tablet by bhavik th every twenty-four hours Rosuvastatin Calcium 40 MG 1 tablet Oral ly Once a day Active Ozempic (11 sources) Start: 09-29-2021 Ozempic qWeek, Refill(s) 0 Start Date: 09/29/21 Status: Ordered Start: 07-10-2021 End: 06-18-2023 Semaglutide (Ozempic) 0.25 m g or 0.5 mg(2 mg/1.5 mL) Pen Injector Discontinued 0.5 MG SUBCUT every week July 10, 2021 12:00am June 18, 2023 11:03am Saturday spironolactone 25 mg oral tablet (2 sources) Aldosterone Antagonist Start: 10-17-2023 take 25 mg by mouth once daily Spironolactone Active 25 MG PO Daily October 17, 2023 12:00am thiamine 100 mg oral tablet (20 sources) [...] mg / clavulanate 125 mg oral tablet (7 sources) Penicillin-class Antibacterial Start: 06-24-2020 End: 07-11-2020 [...] 2022 2:28pm take 1 tablet by bhavik every twelve hours Carvedilol 6.25 MG 1 tablet with food Orally Twice a day Active take 1 tablet by bhavik twice daily at mealtime carvedilol (COREG) 25 mg tablet Take 25 mg by mouth twice daily with meals. 0 Active Comment on above: Take 25 mg by mouth twice daily with meals. dapagliflozin 10 mg oral tablet (12 sources) Sodium-Glucose Cotransporter 2 Inhibitor Start: 06-18-19 [...] 2023 8:42am take 1 capsule by mo cox [facility]anson every twenty-four hours Colace 100 MG 1 [...] Insulin) 100 unit/mL (3 mL) Insulin Pen (7 sources) Start: End: 4 inject 5 [IU] [...] insulin, regular, human 100 unt/ml injectable solution (8 sources) Insulin Start: 07-11-2020 End: 01-15-2022 Insulin [...] day Not-Taking/PRN predniSONE 20 mg oral tablet (7 sources) Start: 06-24-2020 End: 07-11-2020 take 40 mg by mouth once daily Prednisone Discontinued 40 MG PO Daily 20 June 24, 2020 12:00am July 11, 2020 5:52pm sacubitril 24 mg / valsartan 26 mg oral tablet (12 sources) Angiotensin 2 Receptor Jason Start: 06-18-2023 End: 06-18-2023 take 1 tablet by mouth twice daily Sacubitril-Valsarta n (Entresto) 24-26 mg tablet Discontinued 1 TAB PO Twice daily June 18, 2023 12:00am June 18, 2023 11:59am take 1 tablet by bhavik th every twelve hours Entresto 24-26 MG 1 tablet Orally Twice a day Not-Taking/PRN Semaglutide (5 sources) Start: 06-18-2023 End: 06-18-2023 inject 1 mg by subcutaneous injection every week Semaglutide Discontinued 1 MG SUBCUT every week June 18, 2023 12:00am June 18, 2023 11:15am ticagrelor 90 mg oral tablet (7 sources) Start: 07-13-2020 End: 07-10-2021 take 1 tablet by mouth twice daily Ticagrelor (Brilinta) 90 mg Tablet Discontinued 90 MG PO Twice daily 180 90 July 13, 2020 12:00am July 10, 2021 9:59am triamcinolone acetonide 0.92360 mg/mg topical ointment (1 source) Corticosteroid triamcinolone (KENALOG) 0.025 % ointment Apply to affected area twice daily. 0 Active Comment on above: Apply to affected ar ea twice daily. VITAMIN B COMPLEX ORAL (1 source) VITAMIN B COMPLE X ORAL Take by mouth every other day. 0 Active Comment on above: Take by mouth every other day. 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] Onset: 3 09-07-2021 Chronic Deficiency and other anemia (20 [...] sources) Long-term current use of insulin; Translations: [retirement (current) use of insulin] Episodic Other aftercare (11 sources) 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; Translations: [retirement current use of insulin Z79.4] Onset: 1 [...] proteins] 07-11-2020 Episodic Other lower respiratory disease (7 sources) Hypoxia; Translations: [Hypoxemia] 06-22-2020 Episodic Other lower respiratory disease (12 sources) Other nonspecific abnormal finding of lung field; Translations: [Ground glass opacity present on imaging of lung] Onset: 2 Episodic Other lower respiratory disease (8 sources) Solitary pulmonary nodule; Translations: [Solitary pulmonary nodule] Onset: 2 Episodic Other lower respiratory disease (15 sources) Nodule of lung; Translations: [Solitary pulmonary [...] Episodic Other nutritional; endocrine; and metabolic disorders (4 sources) Overweight in adulthood with body mass index of 25 or more but less than 30; Translations: [Body mass index (BMI) 26.0-26.9, adult] 06-18-2023 Episodic Other nutritional; endocrine; and metabolic disorders (2 sources) Body mass index (BMI) 28.0-28.9, adult; Translations: [Body Mass Index 28.0-28.9, adult] 10-17-2023 Episodic Other screening for suspected conditions (not mental disorders or infectious disease) (14 sources) Increased immunoglobulin; Translations: [Patient encounter status] [...] Onset: 09-29-2021 Episodic Other aftercare (1 source) 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; Translations: [DETENTION CURRENT USE OF ASPIRIN] Onset: 04-03-2022 Episodic Other aftercare (1 source) Other local 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 driver (current) drug therapy; Translations: [OTH DETENTION CURRENT DRUG THERAPY] Onset: 04-03-2022 Episodic Other [...] Test Name Value Interpretation Reference Range Facility HbA1c HPLC (Bld) [Mass fract ion]on 10-17-2023 HbA1c (Bld) [Mass fraction] 7.5 % [facility] No Panel Informationon 10-16 Bedside Glucose 108 [facility] Office Visiton 10-07-2023 Follow-up visit [id number] Lani Lizama 1950 M Date Provider Department Center 10/07/2023 [id number] BISHOP Family History Problem Relation Age of Onset Heart attack Mother Other Father Other Brother Heart attack Maternal Grandmother Heart attack Maternal Grandfather Family Status - Relation Status Age at Mother Father Brother Maternal Grandmother Maternal Grandfather Level of Service:16772 [place] OFFICE/OUTPATIENT ESTABLISHED LOW MDM 20 MIN Normal [facility] 30on 09-28-2023 30 The patient is Moder ately Stable - Low risk of patient condition declining or worsening The patient's goals for the shift include rest The clinical goals for the shift include stable VS Over the shift, the patient did make progress toward the following goals. Patient ready for discharge per cardiology and primary. Medications stored in pharmacy returned to patient, IV's removed, AVS gone over with patient, perclose and stent card given to patient, informed to keep in his wallet or some other safe place in case another hospital needs the information. Awaiting ride home. 1230. New medication spironolactone ordered, notified iMeds, educated patient on new medication and side effects. Patient stated understanding and asked if he could take it when he is home to not have to stop on the way home. Normal [facility] BASIC METABOLIC PANELon 08-31 Anion gap [Moles/Vol] 13 mmol/L Normal 7-20 [facility] Comment on above: Performed By: #### L [id number] ####[facility] (BEAKER)[address] [facility] [place] [address] Calcium [Mass/Vol] 8.8 mg/dL Normal 8.6-10.3 [facility] Comment on above: Performed By: #### L [id number] ####[facility] (BEAKER)[address] [facility] [place] [address] Chloride [Moles/Vol] 104 mmol/L Normal 98-107 [facility] Comment on above: Performed By: #### L [id number] ####[facility] (BEAKER)[address] [facility] [address] CO2 [Moles/Vol] 24 mmol/L Normal 21-31 [facility] Comment on above: Performed By: #### L [id number] ####[facility] (BEAKER)[address] [facility] [place] [address] Creatinine [Mass/Vol] 1.59 mg/dL High 0.70-1.30 [facility] Comment on above: Performed By: #### L [id number] ####[facility] ([facility])[address] [place] [address] GLOMERULAR FILTRATION RATE ML/MIN/1.73 SQ M.PREDICTED 46.1 mL/min/1.73m*2 Low >60.0 [facility] Comment on above: Result Comment: [facility]???s estimated glomerular filtration rate (eGFR) will [...] of individuals. Performed By: #### L [id number] ####[facility] ([facility])[address] [place] [address] Glucose [Mass/Vol] 188 mg/dL High 70-100 [facility] Comment on above: Performed By: #### L [id number] ####[facility] ([facility])[address] [place] [address] Potassium [Moles/Vol] 4.1 mmol/L Normal 3.5-5.1 [facility] Comment on above: Performed By: #### L [id number] ####[facility] ([facility])[address] [place] [address] Sodium [Moles/Vol] 137 mmol/L Normal 136-145 [facility] Comment on above: Performed By: #### L [id number] ####[facility] ([facility])[address] [place] [address] Urea nitrogen [Mass/Vol] 26 mg/dL High 7-25 [facility] Comment on above: Performed By: #### L [id number] ####[facility] ([facility])[address] [place] [address] UREA NITROGEN/CREATININE (MASS RATIO) IN SER/PLAS 16.4 Normal [facility] Comment on above: Performed By: #### L [id number] ####[facility] ([facility])[address] [place] [address] CBCon 09-28-2023 Erythrocyte distribution width (RBC) [Ratio] 14.2 % Normal 11.5-15.0 [facility] Comment on above: Performed By: #### L [id number] #### [facility] ([facility]) [address] [place] [address] ERYTHROCYTE MEAN CORPUSCULAR HEMOGLOBIN CONCENTRATION (G/DL) BY AUTOMATED 33.2 g/dL Normal 32.0-35.0 [facility] Comment on above: Performed By: #### L [id number] #### [facility] ([facility]) [address] [place] [address] Hematocrit (Bld) [Volume fraction] 43.4 % Normal 39.0-55.0 [facility] Comment on above: Performed By: #### L [id number] #### [facility] ([facility]) [address] [place] [address] Hemoglobin (Bld) [Mass/Vol] 14.4 g/dL Normal 13.0-17.0 [facility] Comment on above: Performed By: #### L [id number] #### [facility] ([facility]) [address] [place] [address] MCH (RBC) [Entitic mass] 28.4 pg Normal 27.0-33.0 [facility] Comment on above: Performed By: #### L [id number] #### [facility] [address] [place] [address] MCV (RBC) [Entitic vol] 85.6 fL Normal 82.0-98.0 [facility] Comment on above: Performed By: #### L [id number] #### [facility] ([facility] [address] [place] [address] PLATELETS (10*3/UL) IN BLOOD AUTOMATED COUNT 159 10*3/uL Normal 150-400 [facility] Comment on above: Performed By: #### L [id number] #### [facility] ([facility]) [address] [place] [address] RBC (Bld) [#/Vol] 5.07 10*6/uL Normal 4.20-5.70 [facility] Comment on above: Performed By: #### L [id number] #### [facility] ([facility]) [address] [place] [address] WBC (Bld) [#/Vol] 7.88 10*3/uL Normal 4.00-10.60 [facility] Comment on above: Performed By: #### L [id number] #### [facility] ([facility]) [address] [place] [address] POCT GLUCOSE METER UNSOLICIT ED RESULTSon 09-28-2023 Glucose [Mass/Vol] 176 mg/dL High 70-105 [facility] Comment on above: Order Comment: Waive d Testing in the ED is performed under the ED CLIA certificate #[id number]. Result Comment: [email or web address] Performed By: #### L [id number] #### [facility] ([facility]) [address] [place] [address] 30on 09-27-2023 30 Problem: Pain - Adul t Goal: Verbalizes/displays adequate comfort level or baseline comfort level Outcome: Progressing Problem: Safety - Adult Goal: Free from fall injury Outcome: Progressing Problem: Discharge Planning Goal: Discharge to home or other facility with appropriate resources Outcome: Progressing Problem: Chronic Conditions and Co-morbidities Goal: Patient's chronic conditions and co-morbidity symptoms are monitored and maintained or improved Outcome: Progressing The patient is Moderately Stable - Low risk of patient condition declining or worsening The patient's goals for the shift include comfort and rest The clinical goals for the shift include stable VS, cardiac cath Normal [facility] 30 Daily Case Managemen t Update Multidisciplinary rounds have been completed. Barriers to Discharge: Patient is a direct admitted from [place], due chest pain and elevated troponin. Tx to [facility], most recent Cardiology consulted and are planning to take patient for heart cath today. Discharge dispo: pending clinical course, at this time plan is for patient to discharge home when medically ready. Diet: Dietary Orders (From admission, onward) Start Ordered 09/27/23 0001 Diet NPO Diet effective midnight Comments: Ice Chips Question: Reason for NPO: Answer: Operation/Procedure 09/26/231712 Physician Expected Discharge Date: 09/28/2023 Discharge Delays: PT Six Click Score: 24 OT Six Click Score: PT Recommendations: OT Recommendations: New Consults: Consult Orders (From admission, onward) Start Ordered 09/26/231712 Inpatient consult to Cardiology Once Specialty: Cardiology Provider: (Not yet assigned) Question Answer Comment Consulting Group CARDIOLOGY TEAM Reason for Consult? nstemi Level of Consultation Consultation and Management 09/26/23 171 Normal [facility] 30 The patient is Moder ately Unstable - Medium risk of patient condition declining or worsening The patient's goals for the shift include Rest/Comfort The clinical goals for the shift include Stable VS Problem: Pain - Adult Goal: Verbalizes/displays adequate comfort level or baseline comfort level Outcome: Progressing Problem: Safety - Adult Goal: Free from fall injury Outcome: Progressing Problem: Discharge Planning Goal: Discharge to home or other facility with appropriate resources Outcome: Progressing Problem: Chronic Conditions and Co-morbidities Goal: Patient's chronic conditions and co-morbidity symptoms are monitored and maintained or improved Outcome: Progressing Normal [facility] ANTI-XA (HEPARIN LEVEL)on HEPARIN UNFRACTIONATED (U/ML) IN PPP BY CHROMOGENIC METHOD 0.47 IU/mL Normal 0.3-0.7 [facility] Comment on above: Order Comment: Check anti-Xa level every 6 hours while on heparin infusion, or per protocol. Result Comment: Rhona roxaban and Apixaban will interfere with the anti Xa assay used to monitor UFH and LMWH. Performed By: #### L [id number] ####[facility] (BEAKER)[address] [place] [address] HEPARIN UNFRACTIONATED (U/ML) IN PPP BY CHROMOGENIC METHOD 0.55 IU/mL Normal 0.3-0.7 [facility] Comment on above: Order Comment: Check anti-Xa level every 6 hours while on heparin infusion, or per protocol. Result Comment: Jay roxaban and Apixaban will interfere with the anti Xa assay used to monitor UFH and LMWH. Performed By: #### L [id number] ####[facility] ([facility])[address] [place] [address] BASIC METABOLIC PANELon 06-2 Anion gap [Moles/Vol] 16 mmol/L Normal 7-20 [facility] Comment on above: Performed By: #### L [id number] ####[facility] ([facility])[address] [place] [address] Calcium [Mass/Vol] 9.2 mg/dL Normal 8.6-10.3 [facility] Comment on above: Performed By: #### L [id number] ####[facility] ([facility])[address] [place] [address] Chloride [Moles/Vol] 105 mmol/L Normal 98-107 [facility] Comment on above: Performed By: #### L [id number] ####[facility] ([facility])[address], [place] [address] CO2 [Moles/Vol] 23 mmol/L Normal 21-31 [facility] Comment on above: Performed By: #### L [id number] ####[facility] ([facility])[address] [place] [address] Creatinine [Mass/Vol] 1.56 mg/dL High 0.70-1.30 [facility] Comment on above: Performed By: #### L [id number] ####[facility] ([facility])[address] [place] [address] GLOMERULAR FILTRATION RATE ML/MIN/1.73 SQ M.PREDICTED 47.2 mL/min/1.73m*2 Low >60.0 [facility] Comment on above: Result Comment: The [facility]???s estimated glomerular filtration rate (eGFR) will [...] of individuals. Performed By: #### L [id number] ####[facility] ([facility] [place] [address] Glucose [Mass/Vol] 166 mg/dL High 70-100 [facility] Comment on above: Performed By: #### L [id number] ####[facility] ([facility] [facility] [place] [address] Potassium [Moles/Vol] 4.3 mmol/L Normal 3.5-5.1 [facility] Comment on above: Performed By: #### L [id number] ####[facility] ([facility])[address] [facility] [place] [address] Sodium [Moles/Vol] 140 mmol/L Normal 136-145 [facility] Comment on above: Performed By: #### L [id number] ####[facility] ([facility] [facility] [place] [address] Urea nitrogen [Mass/Vol] 26 mg/dL High 7-25 [facility] Comment on above: Performed By: #### L [id number] ####[facility] ([facility])[address] [facility] [place] [address] UREA NITROGEN/CREATININE (MASS RATIO) IN SER/PLAS 16.7 Normal [facility] Comment on above: Performed By: #### L [id number] ####[facility] ([facility])[address] [facility] [place] [address] CBCon 09-27-2023 Erythrocyte distribution width (RBC) [Ratio] 14.4 % Normal 11.5-15.0 [facility] Comment on above: Performed By: #### L [id number] #### [facility] ([facility] [address] [place] [address] ERYTHROCYTE MEAN CORPUSCULAR HEMOGLOBIN CONCENTRATION (G/DL) BY AUTOMATED 33.1 g/dL Normal 32.0-35.0 [facility] Comment on above: Performed By: #### L [id number] #### [facility] ([facility]) [address] [place] [address] Hematocrit (Bld) [Volume fraction] 46.2 % Normal 39.0-55.0 [facility] Comment on above: Performed By: #### L [id number] #### [facility] ([facility]) [address] [place] [address] Hemoglobin (Bld) [Mass/Vol] 15.3 g/dL Normal 13.0-17.0 [facility] Comment on above: Performed By: #### L [id number] #### [facility] [address] [place] [address] MCH (RBC) [Entitic mass] 28.7 pg Normal 27.0-33.0 [facility] Comment on above: Performed By: #### L [id number] #### [facility] ([facility]) [address] [place] [address] MCV (RBC) [Entitic vol] 86.7 fL Normal 82.0-98.0 [facility] Comment on above: Performed By: #### L [id number] #### [facility] ([facility]) [address] [place] [address] PLATELETS (10*3/UL) IN BLOOD AUTOMATED COUNT 158 10*3/uL Normal 150-400 [facility] Comment on above: Performed By: #### L [id number] #### [facility] [address] [address] RBC (Bld) [#/Vol] 5.33 10*6/uL Normal 4.20-5.70 [facility] Comment on above: Performed By: #### L [id number] #### [facility] ([facility]) [address] [place] [address] WBC (Bld) [#/Vol] 7.95 10*3/uL Normal 4.00-10.60 [facility] Comment on above: Performed By: #### L [id number] #### [facility] ([facility]) [address] [place] [address] CONSULTon 09-27-2023 CONSULT Cardiology Consult N rabia I personally saw and examined the patient on the same date of service as resident/fellow Dr henderson. I discussed the findings and therapeutic plan with the resident/fellow Dr henderson. I agree with the documentation, except for any edits/updates below. Teaching Physician's Revisions: None Patient presents with typical chest pain associated with elevated troponin consistent with non-ST elevation [place]. The patient has known history of coronary artery disease, CABG, and many caths in the past last 30 December 2022 showed patent grafts. He also has history of severe cardiomyopathy with ejection fraction 10% on last echo December 2022 and he is s/p biventricular pacemaker AICD. Currently the patient is stable without any symptoms of chest pain or shortness of breath and his physical examination examination is within normal limits. The plan: Continue current medications including aspirin, Plavix, heparin, Crestor, Toprol-XL, lisinopril, and Imdur. The plan is to proceed with heart catheterization with possible angioplasty today. Also echo is ordered to evaluate his ejection fraction. For heart failure continue Toprol-XL and lisinopril. We will try to introduce Andrew Fierro MD, [facility] REASON FOR CONSULT Reason for Consult: nstemi SUBJECTIVE HPI: Lani Lizama is a 72 y/o male with a significant PMHx for HFpEF (NYHA class 3), coronary artery disease [s/p 5 vessel CABG (patient reports CABG performed in 1995), 7 stents with most recent cath in Dec 2022], DM2, hyperlipidemia, peripheral vascular disease, 3rd degree heart block (s/p BiV BUSINESS DEVELOPMENT EXECUTIVE-D) that presented to outside hospital w/ c/o chest pain that radiated to left arm and jaw. Pain was described as centrally-located and pressure-like, and unrelieved by Nitroglycerin x3. Patient started on nitroglycerin drip which provided relief. Initial high sensitivity troponin was unremarkable, but repeat was elevated (2962). He was started on heparin and transferred to [facility] for further evaluation. We were consulted for further management. Today, patient was examined, son at the bedside. Patient is resting comfortably in bed. He is not on a nitroglycerin drip. No significant overnight events. Patient denies SOB, chest pain, and N/V. Currently NPO. Cardiology ROS: Review of Systems Constitutional: Negative. HENT: Negative. Respiratory: Negative. Cardiovascular: Positive for chest pain. Gastrointestinal: Negative. Skin: Negative. Physical Examination: Physical Exam Constitutional: Appearance: Normal appearance. HENT: Head: Normocephalic and atraumatic. Nose: Nose normal. Mouth/Throat: Mouth: Mucous membranes are dry. Eyes: Extraocular Movements: Extraocular movements intact. Pupils: Pupils are equal, round, and reactive to light. Cardiovascular: Rate and Rhythm: Normal rate and regular rhythm. Pulses: Normal pulses. Heart sounds: Normal heart sounds. Pulmonary: Effort: Pulmonary effort is normal. Breath sounds: Normal breath sounds. Abdominal: General: Abdomen is flat. Palpations: Abdomen is soft. Musculoskeletal: General: Normal range of motion. Skin: General: Skin is dry. Capillary Refill: Capillary refill takes less than 2 seconds. Neurological: General: No focal deficit present. Mental Status: He is alert and oriented to person, place, and time. Mental status is at baseline. Past Medical History He has a past medical history of Carotid artery stenosis, Coronary artery disease, Diabetes mellitus ([facility]), Hyperlipidemia, Hypertension, PVD (peripheral vascular disease) ([facility]), and Third degree heart block ([facility]). Surgical History He has a past [...] has no known allergies. Medications Current Outpatient Medications Medication Instructions ALPRAZolam (Xanax) 0.5 mg tablet 1 tablet, oral, 3 times daily RT aspirin 81 mg chewable tablet Chew 1 tablet every day by oral route. bumetanide (BUMEX) 0.5 mg, oral, Daily clopidogrel (Plavix) 75 mg tablet 1 tablet, oral, Daily docusate sodium (COLACE) 100 mg, oral, Daily empagliflozin (Jardiance) 10 mg Take 1 tablet every day by oral route. HumaLOG U-100 Insulin 12 Units, subcutaneous, 3 times daily with meals insulin dete (more content not included)... Normal [facility] HPon 09-27-2023 HP H&P reviewed. The jaron mark was interviewed and examined. 72 y/o male with a significant PMHx for HFpEF (NYHA class 3), coronary artery disease [s/p 5 vessel CABG (patient reports CABG performed in 1995), 7 stents with most recent cath in Dec 2022 with patent grafts x4], DM2, hyperlipidemia, peripheral vascular disease, 3rd degree heart block (s/p BiV BUSINESS DEVELOPMENT EXECUTIVE-D) that presented to outside hospital w/ c/o chest pain found to have NSTEM (trop peak at 4.2) Will proceed with coronary and grafts angiogram for further assessment. Procedure's details, risks and benefits discussed with the patient and he's agreeable. [facility] LIPID PANELon 09-27-2023 CHOL/HDL 3.5 mg/dL [facility] Comment on above: Performed By: #### L [id number] #### [facility] ([facility]) [address] [place] [address] Cholesterol [Mass/Vol] 108 mg/dL Low 120-200 [facility] Comment on above: Performed By: #### L [id number] #### [facility] ([facility]) [address] [place] [address] Magnesium [Mass/Vol] 148 mg/dL Normal 40-149 [facility] Comment on above: Result Comment: TRIG LYCERIDE REFERENCE RANGE: 20 YEARS AND OLDER CARDIOVASCULAR RISK LESS THAN 150 mg/dL LOW RISK 150 TO 199 mg/dL BORDERLINE RISK 200 mg/dL AND GREATER HIGH RISK Performed By: #### L [id number] #### [facility] ([facility]) [address] [place] [address] Magnesium [Mass/Vol] 47 mg/dL Normal 0-160 [facility] Comment on above: Performed By: #### L [id number] #### [facility] ([facility]) [address] [place] [address] Magnesium [Mass/Vol] 31 mg/dL Normal 23-92 [facility] Comment on above: Performed By: #### L [id number] #### [facility] ([facility]) [address] [place] [address] NON HDL CHOL. (LDL+VLDL) 77 Normal [facility] Comment on above: Performed By: #### L [id number] #### [facility] ([facility]) [address] [place] [address] TOTAL VLDL-C 30 mg/dL Normal 0-40 [facility] Comment on above: Performed By: #### L [id number] #### [facility] ([facility]) [address] [place] [address] POCT GLUCOSE METER UNSOLICIT ED RESULTSon 09-27-2023 Glucose [Mass/Vol] 299 mg/dL High 70-105 [facility] Comment on above: Order Comment: Waive d Testing in the ED is performed under the ED CLIA certificate #[id number]. Result Comment: roberto macias Performed By: #### L [id number] #### [facility] ([facility]) [address] [place] [address] Glucose [Mass/Vol] 140 mg/dL High 70-105 [facility] Comment on above: Order Comment: Waive d Testing in the ED is performed under the ED CLIA certificate #[id number]. Result Comment: [email or web address] Performed By: #### L [id number] #### [facility] ([facility]) [address] [place] [address] Glucose [Mass/Vol] 193 mg/dL High 70-105 [facility] Comment on above: Order Comment: Waive d Testing in the ED is performed under the ED CLIA certificate #[id number]. Result Comment: [email or web address] Performed By: #### L [id number] #### [facility] ([facility]) [address] [place] [address] Glucose [Mass/Vol] 184 mg/dL High 70-105 [facility] Comment on above: Order Comment: Waive d Testing in the ED is performed under the ED CLIA certificate #[id number]. Result Comment: [email or web address] Performed By: #### L [id number] ####[facility] ([facility])[address] [place] [address] TROPONIN Ion 09-27-2023 Troponin I.cardiac [Mass/Vol] 3.05 ng/mL Critically high 0.00-0.04 [facility] Comment on above: Result Comment: M-IA EVIOUS CRITICAL RESULT Previous result verified on 09/27/2023 0117 on specimen/case [id number] called with component Troponin I for procedure Troponin I with value 3.51 ng/mL. Performed By: #### L [id number] #### [facility] ([facility]) [address] [place] [address] 30on 09-26-2023 30 The patient is Moder ately Stable - Low risk of patient condition declining or worsening The patient's goals for the shift include Comfort/Rest The clinical goals for the shift include stable vital signs Normal [facility] ANTI-XA (HEPARIN LEVEL)on HEPARIN UNFRACTIONATED (U/ML) IN PPP BY CHROMOGENIC METHOD 0.82 IU/mL High 0.3-0.7 [facility] Comment on above: Order Comment: Check anti-Xa level every 6 hours while on heparin infusion, or per protocol. Result Comment: Rhona roxaban and Apixaban will interfere with the anti Xa assay used to monitor UFH and LMWH. Performed By: #### L [id number] #### [facility] ([facility]) [address] [place] [address] APTTon 09-26-2023 ACTIVATED PARTIAL THROMBOPLASTIN TIME IN PPP BY COAGULATION ASSAY 34.7 Seconds Normal 25.0-35.0 [facility] Comment on above: Order Comment: Basel ine aPTT before initiating heparin infusion. Result Comment: Clin ical significance of the APTT is questionable in the presence of heparin. Performed By: #### L [id number] #### [facility] ([facility]) [address] [place] [address] Activated partial thrombopla stin time (aPTT) in platelet poor plasma by coagulation aon 09-26-2023 aPTT Coag (PPP) [Time] 28.8 s 22.3-36.2 [facility] Basophils Auto (Bld) [#/Vol] on 09-26-2023 Basophils (Bld) [#/Vol] 0.1 10 3/uL 0.0-0.1 [facility] Basophils/100 WBC Auto (Bld) on 09-26-2023 Basophils/100 WBC (Bld) 0.6 % 0.2-2.0 [facility] CBCon 09-26-2023 Erythrocyte distribution width (RBC) [Ratio] 14.3 % Normal 11.5-15.0 [facility] Comment on above: Performed By: #### L [id number] #### [facility] ([facility]) [address] [place] [address] ERYTHROCYTE MEAN CORPUSCULAR HEMOGLOBIN CONCENTRATION (G/DL) BY AUTOMATED 33.1 g/dL Normal 32.0-35.0 [facility] Comment on above: Performed By: #### L [id number] #### [facility] ([facility]) [address] [place] [address] Hematocrit (Bld) [Volume fraction] 48.7 % Normal 39.0-55.0 [facility] Comment on above: Performed By: #### L [id number] #### [facility] ([facility]) [address] [place] [address] Hemoglobin (Bld) [Mass/Vol] 16.1 g/dL Normal 13.0-17.0 [facility] Comment on above: Performed By: #### L [id number] #### [facility] ([facility]) [address] [place] [address] MCH (RBC) [Entitic mass] 28.8 pg Normal 27.0-33.0 [facility] Comment on above: Performed By: #### L [id number] #### [facility] ([facility]) [address] [place] [address] MCV (RBC) [Entitic vol] 87.0 fL Normal 82.0-98.0 [facility] Comment on above: Performed By: #### L [id number] #### [facility] ([facility]) [address] [place] [address] PLATELETS (10*3/UL) IN BLOOD AUTOMATED COUNT 170 10*3/uL Normal 150-400 [facility] Comment on above: Performed By: #### L [id number] #### [facility] ([facility]) [address] [place] [address] RBC (Bld) [#/Vol] 5.60 10*6/uL Normal 4.20-5.70 [facility] Comment on above: Performed By: #### L [id number] #### [facility] ([facility]) [address] [place] [address] WBC (Bld) [#/Vol] 7.75 10*3/uL Normal 4.00-10.60 [facility] Comment on above: Performed By: #### L [id number] #### [facility] ([facility]) [address] [place] [address] COMPREHENSIVE METABOLIC PANE Mike 09-26-2023 Albumin [Mass/Vol] 4.3 g/dL Normal 3.5-5.7 [facility] Comment on above: Performed By: #### L [id number] #### [facility] ([facility]) [address] [place] [address] ALP [Catalytic activity/Vol] 100 U/L Normal 34-104 [facility] Comment on above: Performed By: #### L [id number] #### [facility] ([facility]) [address] [place] [address] ALT [Catalytic activity/Vol] 20 U/L Normal 7-52 [facility] Comment on above: Performed By: #### L [id number] #### [facility] ([facility]) [address] [place] [address] Anion gap [Moles/Vol] 15 mmol/L Normal 7-20 [facility] Comment on above: Performed By: #### L [id number] #### [facility] [address] [place] [address] AST [Catalytic activity/Vol] 50 U/L High 13-39 [facility] Comment on above: Performed By: #### L [id number] #### [facility] [address] [place] [address] Bilirubin [Mass/Vol] 1.1 mg/dL High 0.3-1.0 [facility] Comment on above: Performed By: #### L [id number] #### [facility] [address] [place] [address] Calcium [Mass/Vol] 9.4 mg/dL Normal 8.6-10.3 [facility] Comment on above: Performed By: #### L [id number] #### [facility] ([facility]) [address] [place] [address] Chloride [Moles/Vol] 104 mmol/L Normal 98-107 [facility] Comment on above: Performed By: #### L [id number] #### [facility] ([facility]) [address] [place] [address] CO2 [Moles/Vol] 26 mmol/L Normal 21-31 [facility] Comment on above: Performed By: #### L [id number] #### [facility] ([facility]) [address] [place] [address] Creatinine [Mass/Vol] 1.45 mg/dL High 0.70-1.30 [facility] Comment on above: Performed By: #### L [id number] #### [facility] ([facility]) [address] [place] [address] GLOMERULAR FILTRATION RATE ML/MIN/1.73 SQ M.PREDICTED 51.5 mL/min/1.73m*2 Low >60.0 [facility] Comment on above: Result Comment: [facility]???s estimated glomerular filtration rate (eGFR) will [...] group of individuals. Performed By: #### L [id number] #### [facility] ([facility]) [address] [place] [address] Glucose [Mass/Vol] 141 mg/dL High 70-100 [facility] Comment on above: Performed By: #### L [id number] #### [facility] ([facility]) [address] [place] [address] Potassium [Moles/Vol] 4.2 mmol/L Normal 3.5-5.1 [facility] Comment on above: Performed By: #### L [id number] #### [facility] ([facility]) [address] [facility] [place] [place] [address] Protein [Mass/Vol] 7.4 g/dL Normal 6.0-8.3 [facility] Comment on above: Performed By: #### L [id number] #### [facility] ([facility]) [address] [place] [address] Sodium [Moles/Vol] 141 mmol/L Normal 136-145 [facility] Comment on above: Performed By: #### L [id number] #### [facility] ([facility]) [address] [place] [address] Urea nitrogen [Mass/Vol] 24 mg/dL Normal 7-25 [facility] Comment on above: Performed By: #### L [id number] #### [facility] ([facility]) [address] [place] [address] UREA NITROGEN/CREATININE (MASS RATIO) IN SER/PLAS 16.6 Normal [facility] Comment on above: Performed By: #### L [id number] #### [facility] ([facility]) [address] [place] [address] Eosinophils/100 WBC Auto (Bl d)on 09-26-2023 Eosinophils/100 WBC (Bld) 2.4 % 0.9-7.0 [facility] Erythrocyte distribution wid th Auto (RBC) [Ratio]on 09-26-2023 Erythrocyte distribution width (RBC) [Ratio] 14.3 % 11.0-15.0 [facility] Estimated glomerular filtrat ion rate (GFR) non- Americanon 09-26-2023 GFR/1.73 sq M.predicted among non-blacks MDRD (S/P/Bld) [Vol rate/Area] 39 mL/min/{1.73_m2} Low >=60 [facility] Globulin Calc (S) [Mass/Vol] on 09-26-2023 Globulin (S) [Mass/Vol] 4.0 g/dL [facility] HPon 09-26-2023 HP History Of Present I llness Lani Lizama is a 72 y.o. male presenting with patient is a 72-year-old gentleman with history of coronary atherosclerosisChest pain. 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 Patient woke up with chest pain around 5:30 AM. Chest pain was centrally located pressure-like with radiating down the arms and into the jaw. Patient took 3 nitros which did not help the patient. Patient occasionally gets chest pain which does get relieved with nitro but not this time. Patient went to the ER and was started on nitro drip which did help the patient. Initial troponin was normal which then increased to 2962 around 10 AM. Patient is on Eliquis and aspirin. Patient wasstarted on heparin and was transferred to [facility] for further cares. Creatinine was 1.7. I evaluated the patient at bedside. He is sitting up in bed denies headache vision changes chest pain shortness of breath cough sputum nausea vomiting. Chest pain is completely resolved now nitro has been discontinued for about 20 minutes. Patient denies any black stools bloody stools. Patient has good baseline functioning capacity but is not very active. Past Medical History He has a past medical history of Carotid artery stenosis, Coronary artery disease, Diabetes mellitus ([facility]), Hyperlipidemia, Hypertension, PVD (peripheral vascular disease) ([facility]), and Third degree heart block ([facility]). Surgical History He has a past [...] in the morning, afternoon, and at bedtime. 09/26/2023 aspirin 81 mg chewable tablet Chew 1 tablet every day by oral route. 09/26/2023 bumetanide (Bumex) 0.5 mg tablet TAKE 1 TABLET (0.5 MG) BY MOUTH IN THE MORNING (Patient not taking: Reported on 09/26/2023) 90 tablet 3 More than a month clopidogrel (Plavix) 75 mg tablet Take 1 tablet by mouth in the morning. 09/26/2023 docusate sodium (Colace) 100 mg capsule Take 100 mg by mouth in the morning. 09/26/2023 empagliflozin (Jardiance) 10 mg Take 1 tablet every day by oral route. 09/26/2023 insulin detemir (Levemir) 100 unit/mL injection Inject under the skin with breakfast, with lunch, and with evening meal. Pt states he takes 7 units with each meal 09/26/2023 insulin lispro (HumaLOG U-100 Insulin) 100 unit/mL injection Inject 12 Units under the skin with breakfast, with lunch, and with evening meal. More than a month isosorbide mononitrate ER (Imdur) 60 mg 24 hr tablet Take 1 tablet (60 mg) by mouth 2 times daily. 180 tablet 3 09/26/2023 lisinopril 2.5 mg tablet Take 1 tablet (2.5 mg) by mouth in the morning and at bedtime. 180 tablet 3 09/26/2023 metoprolol succinate XL (Toprol-XL) 100 mg 24 hr tablet Take 1 tablet (100 mg) by mouth in the morning. Do not crush or chew. 90 tablet 3 09/26/2023 metoprolol succinate XL (Toprol-XL) 50 mg 24 hr tablet Take 1 tablet (50 mg) by mouth in the morning. Do not crush or chew. 90 tablet 3 09/26/2023 multivitamin capsule Take 1 capsule by mouth in the morning. 09/26/2023 nitroglycerin (Nitrostat) 0.[address] 1 TABLET UNDER TONGUE EVERY 5 MINS, UP TO 3 DOSES NEEDED FOR CHEST PAIN 90 tablet 2 09/26/2023 pantoprazole (ProtoNix) 40 mg EC tablet TAKE 1 TABLET BY MOUTH DAILY ON AN EMPTY STOMACH FOLLOWED BY BREAKFAST 30 MINUTES AFTER 09/26/2023 rosuvastatin (Crestor) 40 mg tablet Take 1 tablet (40 mg) by mouth at bedtime. 90 tablet 3 09/25/2023 12 point review of system was obtained and is negative except per the HPI Last Recorded Vitals Visit Vitals BP 134/78 (BP Location: Right arm, Patient Position: Sitting) Pulse 83 Temp 36.7 ???C (98.1 ???F) (Temporal) Resp 19 Ht 1.702 m (5' 7 ) Wt 79.9 kg (176 lb 3.2 oz) BMI 27.60 kg/m??? Smoking Status Former BSA 1.94 m??? GENERAL: The patient is well developed and nontoxic (more content not included)... Normal [facility] Hematocrit Auto (Bld) [Volum e fraction]on 09-26-2023 Hematocrit (Bld) [Volume fraction] 49.4 % 42.0-54.0 [facility] Hemoglobin [Mass/volume] in Bloodon 09-26-2023 Hemoglobin (Bld) [Mass/Vol] 16.0 g/dL 14.0-18.0 [facility] INR in Platelet poor plasma by Coagulation assayon 09-26-2023 INR Coag (PPP) [Relative time] 0.99 {INR} [facility] Comment on above: DESIRED INR:2.0-3.0 CONDITIONS NOT LISTED BELOW2.5-3.5 FOR PROSTHETIC HEART VALVE REPLACEMENT2.5-3.5 RECURRENT THROMBOSIS LACTIC ACID WITH 4 HOUR REFL EXon 09-26-2023 LACTATE (MMOL/L) IN SER/PLAS 1.1 mmol/L Normal 0.5-2.2 [facility] Comment on above: Performed By: #### L [id number] #### [facility] ([facility]) [address] [place] [address] Laboratory - Chemistry and C hemistry - challengeon 09-26-2023 Albumin [Mass/Vol] 4.1 g/dL 3.4-5.0 [facility] ALP [Catalytic activity/Vol] 146 U/L High 46-116 [facility] ALT [Catalytic activity/Vol] 32 U/L 16-63 [facility] AST [Catalytic activity/Vol] 26 U/L 15-37 [facility] Bilirubin [Mass/Vol] 0.7 mg/dL 0.2-1.0 [facility] Calcium [Mass/Vol] 9.2 mg/dL 8.5-10.1 [facility] Chloride [Moles/Vol] 104 mmol/L 98-107 [facility] CO2 [Moles/Vol] 24.8 mmol/L 21.0-32.0 [facility] Creatinine [Mass/Vol] 1.72 mg/dL High 0.70-1.30 [facility] GFR/1.73 sq M.predicted MDRD (S/P/Bld) [Vol rate/Area] 48 mL/min/{1.73_m2} Low >=60 [facility] Glucose [Mass/Vol] 206 mg/dL High 74-106 [facility] Potassium [Moles/Vol] 4.2 mmol/L 3.5-5.1 [facility] Protein [Mass/Vol] 8.1 g/dL 6.4-8.2 [facility] Sodium [Moles/Vol] 141 mmol/L 136-145 [facility] Urea nitrogen [Mass/Vol] 26.0 mg/dL High 7.0-18.0 [facility] Urea nitrogen/Creatinine [Mass ratio] 15.1 mg/mg [facility] Laboratory - Hematology and Cell countson 09-26-2023 Immature granulocytes/100 WBC (Bld) 0.3 % 0.0-0.5 [facility] Leukocytes [#/volume] correc soraya for nucleated erythrocytes in Blood by Automated counon 09-26-2023 WBC corrected for nucl RBC Auto (Bld) [#/Vol] 10.5 10 3/uL 4.0-11.0 [facility] Lymphocytes Auto (Bld) [#/Vo l]on 09-26-2023 Lymphocytes (Bld) [#/Vol] 2.0 10 3/uL 1.2-3.8 [facility] Lymphocytes/100 WBC Auto (Bl d)on 09-26-2023 Lymphocytes/100 WBC (Bld) 18.7 % Low 20.5-60.0 [facility] MCH Auto (RBC) [Entitic mass ]on 09-26-2023 MCH (RBC) [Entitic mass] 28.4 pg 25.9-34.0 [facility] MCHC Auto (RBC) [Mass/Vol]on 09-26-2023 MCHC (RBC) [Mass/Vol] 32.4 g/dL 29.9-35.2 [facility] MCV Auto (RBC) [Entitic vol] on 09-26-2023 MCV (RBC) [Entitic vol] 87.7 fL 80.0-94.0 [facility] Monocytes Auto (Bld) [#/Vol] on 09-26-2023 Monocytes (Bld) [#/Vol] 0.8 10 3/uL 0.3-0.8 [facility] Monocytes/100 WBC Auto (Bld) on 09-26-2023 Monocytes/100 WBC (Bld) 7.3 % 1.7-12.0 [facility] Neutrophils Auto (Bld) [#/Vo l]on 09-26-2023 Neutrophils (Bld) [#/Vol] 7.4 10 3/uL High 1.4-6.5 [facility] Neutrophils/100 WBC Auto (Bl d)on 09-26-2023 Neutrophils/100 WBC (Bld) 70.7 % 43.0-75.0 [facility] No Panel Informationon 09-25 Troponin I High Sensitivity 8614.2 pg/mL High 4.0-76.1 [facility] Comment on above: RESULTS CALLED TO DR REYEZ/HOSSEINUT-OFF POINTS HAVE BEEN ESTABLISHED BASED ON THE FOURTHIVERSAL DEFINITION OF MYOCARDIAL INFARCTION. THE UPPERREFERENCE LIMIT (URL) OF TROPONIN, DEFINED THE 99THPERCENTILE OF cTnI DISTRIBUTION IN A REFERENCE POPULATION,HAS BEEN CONFIRMED THE DECISION THRESHOLD FOR MIDIAGNOSIS.99TH PERCENTILE = 76.2 PG/MLNOTE: HIGH-SENSITIVITY TROPONIN ASSAY IS NOT INTENDED TO BEUSED IN ISOLATION BUT SHOULD BE INTERPRETED IN CONJUNCTIONWITH OTHER DIAGNOSTIC AND CLINICAL INFORMATION. Eosinophils # (Auto) 0.3 10 3/uL 0.0-0.7 [facility] Immature Granulocyte # (Auto) 0.03 10 3/uL 0.00-0.03 [facility] POCT GLUCOSE METER UNSOLICIT ED RESULTSon 09-26-2023 Glucose [Mass/Vol] 286 mg/dL High 70-105 [facility] Comment on above: Order Comment: Waive d Testing in the ED is performed under the ED CLIA certificate #[id number]. Result Comment: roberto macias Performed By: #### L [id number] #### [facility] ([facility]) [address] [place] [address] Glucose [Mass/Vol] 151 mg/dL High 70-105 [facility] Comment on above: Order Comment: Waive d Testing in the ED is performed under the ED CLIA certificate #[id number]. Result Comment: cfet [email or web address] Performed By: #### L [id number] #### [facility] ([facility]) [address] [place] [address] Platelet mean volume Auto (B ld) [Entitic vol]on 09-26-2023 Platelet mean volume (Bld) [Entitic vol] 10.0 fL 9.5-13.5 [facility] Platelets Auto (Bld) [#/Vol] on 09-26-2023 Platelets (Bld) [#/Vol] 194 10 3/uL 150-450 [facility] Prothrombin time (PT)on 08-31 PT Coag (PPP) [Time] 10.5 s 9.0-11.6 [facility] RBC Auto (Bld) [#/Vol]on RBC (Bld) [#/Vol] 5.63 10 6/uL 4.70-6.10 [facility] Serum or plasma albumin/glob ulin mass ratioon 09-26-2023 Albumin/Globulin [Mass ratio] 1.0 {ratio} [facility] Serum or plasma anion gap de terminationon 09-26-2023 Anion gap [Moles/Vol] 16.4 mmol/L [facility] TROPONIN Ion 09-26-2023 Troponin I.cardiac [Mass/Vol] 3.51 ng/mL Critically high 0.00-0.04 [facility] Comment on above: Result Comment: M-IA EVIOUS CRITICAL RESULT Previous result verified on 09/26/2023 2309 on specimen/case [id number] called with component Troponin I for procedure Troponin I with value 3.41 ng/mL. Performed By: #### L [id number] #### [facility] ([facility]) [address] [place] [address] Troponin I.cardiac [Mass/Vol] 3.41 ng/mL Critically high 0.00-0.04 [facility] Comment on above: Result Comment: M-IA EVIOUS CRITICAL RESULT Previous result verified on 09/26/2023 1926 on specimen/case [id number] called with component Troponin I for procedure Troponin I with value 4.22 ng/mL. Performed By: #### L [id number] #### [facility] ([facility]) [address] [place] [address] Troponin I.cardiac [Mass/Vol] 4.22 ng/mL Critically high 0.00-0.04 [facility] Comment on above: Result Comment: MElenoTR OPONIN INITIAL CRITICAL HIGH; RESPUN AND RETESTED Performed By: #### L [id number] #### [facility] ([facility]) [address] [place] [address] Office Visiton 09-09-2023 Follow-up visit [id number] Lani Lizama 1950 M Date Provider Department Center 09/09/2023 271-PINKY BISHOP CARD [facility] Family History Problem Relation Age of Onset Heart attack Mother Other Father Other Brother Heart attack Maternal Grandmother Heart attack Maternal Grandfather Family Status - Relation Status Age at Mother Father Brother Maternal Grandmother Maternal Grandfather Level of Service:28240 [place] OFFICE/OUTPATIENT ESTABLISHED MOD MDM 30 MIN Normal [facility] No Panel Informationon 08-26 Prostate Specific Antigen Screen 1.37 ng/mL <=4.00 [facility] Erythrocyte distribution wid th Auto (RBC) [Ratio]on 06-24-2023 Erythrocyte distribution width (RBC) [Ratio] 14.6 % 11.0-15.0 [facility] Estimated glomerular filtrat ion rate (GFR) non- Americanon 06-24-2023 GFR/1.73 sq M.predicted among non-blacks MDRD (S/P/Bld) [Vol rate/Area] 38 mL/min/{1.73_m2} >=60 [facility] Hematocrit Auto (Bld) [Volum e fraction]on 06-24-2023 Hematocrit (Bld) [Volume fraction] 46.2 % 42.0-54.0 [facility] Hemoglobin [Mass/volume] in Bloodon 06-24-2023 Hemoglobin (Bld) [Mass/Vol] 14.5 g/dL 14.0-18.0 [facility] Laboratory - Chemistry and C hemistry - challengeon 06-24-2023 Albumin [Mass/Vol] 4.0 g/dL 3.4-5.0 [facility] Calcium [Mass/Vol] 9.2 mg/dL 8.5-10.1 [facility] Chloride [Moles/Vol] 106 mmol/L 98-107 [facility] CO2 [Moles/Vol] 25.4 mmol/L 21.0-32.0 [facility] Creatinine [Mass/Vol] 1.76 mg/dL 0.70-1.30 [facility] GFR/1.73 sq M.predicted MDRD (S/P/Bld) [Vol rate/Area] 47 mL/min/{1.73_m2} >=60 [facility] Glucose [Mass/Vol] 212 mg/dL 74-106 [facility] Magnesium [Mass/Vol] 2.1 mg/dL 1.8-2.4 [facility] Potassium [Moles/Vol] 4.5 mmol/L 3.5-5.1 [facility] Sodium [Moles/Vol] 142 mmol/L 136-145 [facility] Urate [Mass/Vol] 4.3 mg/dL 3.5-7.2 [facility] Urea nitrogen [Mass/Vol] 30.0 mg/dL 7.0-18.0 [facility] Urea nitrogen/Creatinine [Mass ratio] 17.0 mg/mg [facility] Laboratory - Urinalysison Protein (U) [Mass/Vol] 11.5 mg/dL <=11.9 [facility] Leukocytes [#/volume] correc soraya for nucleated erythrocytes in Blood by Automated counon 06-24-2023 WBC corrected for nucl RBC Auto (Bld) [#/Vol] 9.6 10 3/uL 4.0-11.0 [facility] MCH Auto (RBC) [Entitic mass ]on 06-24-2023 MCH (RBC) [Entitic mass] 28.5 pg 25.9-34.0 [facility] MCHC Auto (RBC) [Mass/Vol]on 06-24-2023 MCHC (RBC) [Mass/Vol] 31.4 g/dL 29.9-35.2 [facility] MCV Auto (RBC) [Entitic vol] on 06-24-2023 MCV (RBC) [Entitic vol] 90.8 fL 80.0-94.0 [facility] No Panel Informationon 06-23 25-Hydroxy Vitamin D Total 42.5 ng/mL [facility] Comment on above: <20 ng/mL Vit D defi cient20-<30 ng/mL Vit D [id number] ng/mL Vit D sufficient>100 ng/mL Potential Toxicity Parathyroid Hormone (Intact) 48 pg/mL 15-65 [facility] Comment on above: Performed at: [employer] [facility] [employer] [address] [id number] Director: Kwaku Park PhD, Phone: [phone] Phosphorus Level 3.6 mg/dL 2.6-4.7 [facility] Urine Random Creatinine 60.60 mg/dL 20.00-300. 00 [facility] Platelet mean volume Auto (B ld) [Entitic vol]on 06-24-2023 Platelet mean volume (Bld) [Entitic vol] 10.2 fL 9.5-13.5 [facility] Platelets Auto (Bld) [#/Vol] on 06-24-2023 Platelets (Bld) [#/Vol] 178 10 3/uL 150-450 [facility] RBC Auto (Bld) [#/Vol]on RBC (Bld) [#/Vol] 5.09 10 6/uL 4.70-6.10 [facility] Serum or plasma anion gap de terminationon 06-24-2023 Anion gap [Moles/Vol] 15.1 mmol/L [facility] Urine protein/creatinine rat ioon 06-24-2023 Protein/Creatinine (U) [Ratio] 0.19 [facility] HbA1c HPLC (Bld) [Mass fract ion]on 06-18-2023 HbA1c (Bld) [Mass fraction] 6.1 % [facility] No Panel Informationon 06-17 Bedside Glucose 150 [facility] Cholesterol in LDL Calc [Mas s/Vol]on 06-13-2023 Cholesterol in LDL [Mass/Vol] 29.0 mg/dL [facility] Comment on above: <100 mg/dl [id number] 0-129 mg/dl NEAR OR ABOVE [id number] mg/dl BORDERLINE [id number] mg/dl HIGH>190 mg/dl VERY HIGH Cholesterol in VLDL Calc [Ma ss/Vol]on 06-13-2023 Cholesterol in VLDL [Mass/Vol] 24.8 mg/dL [facility] Laboratory - Chemistry and C hemistry - challengeon 06-13-2023 Cholesterol [Mass/Vol] 87 mg/dL <=200 [facility] Cholesterol in HDL [Mass/Vol] 34 mg/dL 40-60 [facility] Comment on above: > or =60 mg/dl - LOW CARDIOVASCULAR RISK<40 mg/dl - HIGH CARDIOVASCULAR RISK Triglyceride [Mass/Vol] 124 mg/dL <=150 [facility] Serum or plasma total choles terol/high density lipoprotein (HDL) cholesterol mass yulia 06-13-2023 Cholesterol.total/Cho lesterol in HDL [Mass ratio] 2.6 {ratio} [facility] Comment on above: 3.3 - 4.4 LOW RISK4. 4 - 7.1 AVERAGE RISK7.1 - 11.0 MODERATE RISK>11.0 HIGH RISK Office Visiton 05-07-2023 Follow-up visit [id number] Lani Lizama 1950 M Date Provider Department Center 05/07/2023 241-KEVIN ARTEAGA MARCELINO Armas Family History Problem Relation Age of Onset Heart attack Mother Other Father Other Brother Heart attack Maternal Grandmother Heart attack Maternal Grandfather Family Status - Relation Status Age at Mother Father Brother Maternal Grandmother Maternal Grandfather Level of Service:66405 [place] OFFICE/OUTPATIENT ESTABLISHED LOW MDM 20 MIN Normal [facility] Office Visiton 04-30-2023 Follow-up visit [id number] Lani Lizama 1950 M Date Provider Department Center 04/30/2023 LAILA MCBRIDE Family History Problem Relation Age of Onset Heart attack Mother Other Father Other Brother Heart attack Maternal Grandmother Heart attack Maternal Grandfather Family Status - Relation Status Age at Mother Father Brother Maternal Grandmother Maternal Grandfather Level of Service:26600 [place] OFFICE/OUTPATIENT ESTABLISHED MOD MDM 30 MIN Normal [facility] Office Visiton 03-18-2023 Follow-up visit [id number] Lani Lizama 1950 M Date Provider Department Center 03/18/2023 Nakul-LAILA DUARTE MARCELINO [facility] Family History Problem Relation Age of Onset Heart attack Mother Other Father Other Brother Heart attack Maternal Grandmother Heart attack Maternal Grandfather Family Status - Relation Status Age at Mother Father Brother Maternal Grandmother Maternal Grandfather Level of Service:10801 [place] OFFICE/OUTPATIENT ESTABLISHED MOD MDM 30 MIN Normal [facility] A1C HEMOGLOBINon 03-12-2023 HbA1c (Bld) [Mass fraction] 7.1 % [employer] [facility] Lever Other Glucose - FINGER STICKon Glucose [Mass/Vol] 151 mg/dL [facility] Other HbA1c (Bld) [Mass fraction]o n 03-12-2023 A1C HEMOGLOBIN [facility] Other Office Visiton 03-07-2023 Follow-up visit [id number] Lani Lizama 1950 M Date Provider Department Center 03/07/2023 Scott-PINKY BISHOP MARCELINO Armas Family History Problem Relation Age of Onset Heart attack Mother Other Father Other Brother Heart attack Maternal Grandmother Heart attack Maternal Grandfather Family Status - Relation Status Age at Mother Father Brother Maternal Grandmother Maternal Grandfather Level of Service:05297 [place] OFFICE/OUTPATIENT ESTABLISHED MOD MDM 30-39 MIN Normal [facility] Orders Onlyon 02-27-2023 Orders Only [id number] Lani Lizama 1950 M Date Provider Department Center 02/27/2023 Bart-GEOVANNA BASS MARCELINO [facility] Family History Problem Relation Age of Onset Heart attack Mother Other Father Other Brother Heart attack Maternal Grandmother Heart attack Maternal Grandfather Family Status - Relation Status Age at Mother Father Brother Maternal Grandmother Maternal Grandfather Normal [facility] Office Visiton 02-19-2023 Follow-up visit [id number] Lani Lizama 1950 M Date Provider Department Center 02/19/2023 [id number] SOARES MARCELINO Armas Family History Problem Relation Age of Onset Heart attack Mother Other Father Other Brother Heart attack Maternal Grandmother Heart attack Maternal Grandfather Family Status - Relation Status Age at Mother Father Brother Maternal Grandmother Maternal Grandfather Level of Service:04427 [place] POSTOP FOLLOW UP VISIT RELATED TO ORIGINAL PX Normal [facility] HPon 02-12-2023 HP ------ -- Attestation signed by Kevin Arteaag MD at 02/12/2023 10:32 PM By using [...] and hypertension. He was recently [place] [facility] [place]. Had inpatient stress test and heart cath. Denies SOB but still having chest pain and has taken nitroglycerin a few times for relief. Had CT chest last week s/p discharge. 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 Medications were adjusted. I had [...] – [place] Orders Onlyon 02-12-2023 Orders Only [id number] Lani Lizama 1950 Date Provider Department Center 02/12/2023 PORFIRIO GAXIOLA [facility] DC HeartVAS Family History Problem Relation Age of Onset Heart attack Mother Other Father Other Brother Heart attack Maternal Grandmother Heart attack Maternal Grandfather Family Status - Relation Status Age at Mother Father Brother Maternal Grandmother Maternal Grandfather [facility] Follow-Upon 02-01-2023 Follow-Up [id number] Lani Lizama 1950 M Date Provider Department Center 02/01/2023 Nakul-LAILA DUARTE MARCELINO [facility] Family History Problem Relation Age of Onset Heart attack Mother Other Father Other Brother Heart attack Maternal Grandmother Heart attack Maternal Grandfather Family Status - Relation Status Age at Mother Father Brother Maternal Grandmother Maternal Grandfather Level of Service:65784 [place] OFFICE/OUTPATIENT ESTABLISHED MOD MDM 30-39 MIN Reason for Visit and Comments: Follow-up [610930] Normal [facility] 30on 01-28-2023 30 The patient is Moder ately Stable - Low risk of patient condition declining or worsening The patient's goals for the shift include comfort The clinical goals for the shift include vss, safety Over the shift, the patient continued to make progress toward the following goals. Normal [facility] APTTon 01-28-2023 ACTIVATED PARTIAL THROMBOPLASTIN TIME IN PPP BY COAGULATION ASSAY 125.9 Seconds High 25.0-35.0 [facility] Comment on above: Result Comment: Clin ical significance of the APTT is questionable in the presence of heparin. Performed By: #### L [id number] #### [facility] ([employer]) [address] [place] [address] BASIC METABOLIC PANELon 01-01 Anion gap [Moles/Vol] 10 mmol/L Normal 7-20 [facility] Comment on above: Performed By: #### L [id number] #### [facility] ([employer]) [address] [place] [address] Calcium [Mass/Vol] 9.1 mg/dL Normal 8.6-10.3 [facility] Comment on above: Performed By: #### L [id number] #### [facility] [address] [place] [address] Chloride [Moles/Vol] 110 mmol/L High 98-107 [facility] Comment on above: Performed By: #### L [id number] #### [facility] [address] [place] [address] CO2 [Moles/Vol] 24 mmol/L Normal 21-31 [facility] Comment on above: Performed By: #### L [id number] #### [facility] ([facility]) [address] [place] [address] Creatinine [Mass/Vol] 1.46 mg/dL High 0.70-1.30 [facility] Comment on above: Performed By: #### L [id number] #### [facility] ([facility]) [address] [place] [address] GLOMERULAR FILTRATION RATE ML/MIN/1.73 SQ M.PREDICTED 51.1 mL/min/1.73m*2 Low >60.0 [facility] Comment on above: Result Comment: The [facility]???s estimated glomerular filtration rate (eGFR) will [...] group of individuals. Performed By: #### L [id number] #### [facility] [address] [place] [address] Glucose [Mass/Vol] 133 mg/dL High 70-100 [facility] Comment on above: Performed By: #### L [id number] #### [facility] [address] [place] [address] Potassium [Moles/Vol] 4.0 mmol/L Normal 3.5-5.1 [facility] Comment on above: Performed By: #### L [id number] #### [facility] [address] [place] [address] Sodium [Moles/Vol] 140 mmol/L Normal 136-145 [facility] Comment on above: Performed By: #### L [id number] #### [facility] ([facility]) [address] [place] [address] Urea nitrogen [Mass/Vol] 23 mg/dL Normal 7-25 [facility] Comment on above: Performed By: #### L [id number] #### [facility] ([facility]) [address] [place] [address] UREA NITROGEN/CREATININE (MASS RATIO) IN SER/PLAS 15.8 Normal [facility] Comment on above: Performed By: #### L [id number] #### [facility] ([facility]) [address] [place] [address] CBCon 01-28-2023 Erythrocyte distribution width (RBC) [Ratio] 13.2 % Normal 11.5-15.0 [facility] Comment on above: Performed By: #### L [id number] ####[facility] ([facility] [place] [address] ERYTHROCYTE MEAN CORPUSCULAR HEMOGLOBIN CONCENTRATION (G/DL) BY AUTOMATED 33.8 g/dL Normal 32.0-35.0 [facility] Comment on above: Performed By: #### L [id number] ####[facility] ([facility] [place] [address] Hematocrit (Bld) [Volume fraction] 39.0 % Normal 39.0-55.0 [facility] Comment on above: Performed By: #### L [id number] ####[facility] ([facility] [place] [address] Hemoglobin (Bld) [Mass/Vol] 13.2 g/dL Normal 13.0-17.0 [facility] Comment on above: Performed By: #### L [id number] ####[facility] ([facility] [place] [address] MCH (RBC) [Entitic mass] 31.1 pg Normal 27.0-33.0 [facility] Comment on above: Performed By: #### L [id number] ####[facility] ([facility] [place] [address] MCV (RBC) [Entitic vol] 91.8 fL Normal 82.0-98.0 [facility] Comment on above: Performed By: #### L [id number] ####[facility] ([facility])[address] [place] [address] PLATELETS (10*3/UL) IN BLOOD AUTOMATED COUNT 141 10*3/uL Low 150-400 [facility] Comment on above: Performed By: #### L [id number] ####[facility] ([facility])[address] [place] [address] RBC (Bld) [#/Vol] 4.25 10*6/uL Normal 4.20-5.70 [facility] Comment on above: Performed By: #### L [id number] ####[facility] ([facility])[address] [place] [address] WBC (Bld) [#/Vol] 6.40 10*3/uL Normal 4.00-10.60 [facility] Comment on above: Performed By: #### L [id number] ####[facility] ([facility])[address] [place] [address] LIPID PANELon 01-28-2023 CHOL/HDL 3.7 mg/dL Normal [facility] Comment on above: Performed By: #### L [id number] #### [facility] [address] [place] [address] Cholesterol [Mass/Vol] 111 mg/dL Low 120-200 [facility] Comment on above: Performed By: #### L [id number] #### [facility] ([facility]) [address] [place] [address] Magnesium [Mass/Vol] 172 mg/dL High 40-149 [facility] Comment on above: Result Comment: TRIG LYCERIDE REFERENCE RANGE: 20 YEARS AND OLDER CARDIOVASCULAR RISK LESS THAN 150 mg/dL LOW RISK 150 TO 199 mg/dL BORDERLINE RISK 200 mg/dL AND GREATER HIGH RISK Performed By: #### L [id number] #### [facility] ([facility]) [address] [place] [address] Magnesium [Mass/Vol] 47 mg/dL Normal 0-160 [facility] Comment on above: Performed By: #### L [id number] #### [facility] ([facility]) [address] [place] [address] Magnesium [Mass/Vol] 30 mg/dL Normal 23-92 [facility] Comment on above: Performed By: #### L [id number] #### [facility] ([facility]) [address] [place] [address] NON HDL CHOL. (LDL+VLDL) 81 Normal [facility] Comment on above: Performed By: #### L [id number] #### [facility] ([facility]) [address] [place] [address] TOTAL VLDL-C 34 mg/dL Normal 0-40 [facility] Comment on above: Performed By: #### L [id number] #### [facility] ([facility]) [address] [place] [address] Orders Onlyon 01-28-2023 Orders Only [id number] Lani Lizama 1950 M Date Provider Department Center 01/28/[address] Family History Problem Relation Age of Onset Heart attack Mother Other Father Other Brother Heart attack Maternal Grandmother Heart attack Maternal Grandfather Family Status - Relation Status Age at Mother Father Brother Maternal Grandmother Maternal Grandfather Normal [facility] POCT GLUCOSE METER UNSOLICIT ED RESULTSon 01-28-2023 Glucose [Mass/Vol] 155 mg/dL High 70-105 [facility] Comment on above: Order Comment: Waive d Testing in the ED is performed under the ED CLIA certificate #[id number]. Result Comment: [email or web address] Performed By: #### L [id number] #### [facility] [address] [place] [address] Glucose [Mass/Vol] 151 mg/dL High 70-105 [facility] Comment on above: Order Comment: Waive d Testing in the ED is performed under the ED CLIA certificate #[id number]. Result Comment: [email or web address] Performed By: #### L [id number] ####[facility] ([facility])[address] [facility] [place] [address] Glucose [Mass/Vol] 133 mg/dL High 70-105 [facility] Comment on above: Order Comment: Waive d Testing in the ED is performed under the ED CLIA certificate #[id number]. Result Comment: [email or web address] Performed By: #### L [id number] #### [facility] ([facility]) [address] [place] [address] 30on 01-27-2023 30 The patient is Moder [...] to discharge with patient and caregiver Normal [facility] APTTon 01-27-2023 ACTIVATED PARTIAL THROMBOPLASTIN TIME IN PPP BY COAGULATION ASSAY 113.7 Seconds High 25.0-35.0 [facility] Comment on above: Result Comment: Clin ical significance of the APTT is questionable in the presence of heparin. Performed By: #### L [id number] #### [facility] ([facility]) [address] [place] [address] BASIC METABOLIC PANELon 10-2 Anion gap [Moles/Vol] 13 mmol/L Normal 7-20 [facility] Comment on above: Performed By: #### L [id number] ####[facility] ([facility])[address] [place] [address] Calcium [Mass/Vol] 9.4 mg/dL Normal 8.6-10.3 [facility] Comment on above: Performed By: #### L [id number] ####[facility] ([facility] [place] [address] Chloride [Moles/Vol] 106 mmol/L Normal 98-107 [facility] Comment on above: Performed By: #### L [id number] ####[facility] ([facility] [place] [address] CO2 [Moles/Vol] 26 mmol/L Normal 21-31 [facility] Comment on above: Performed By: #### L [id number] ####[facility] ([facility] [place] [address] Creatinine [Mass/Vol] 1.71 mg/dL High 0.70-1.30 [facility] Comment on above: Performed By: #### L [id number] ####[facility] ([facility] [place] [address] GLOMERULAR FILTRATION RATE ML/MIN/1.73 SQ M.PREDICTED 42.3 mL/min/1.73m*2 Low >60.0 [facility] Comment on above: Result Comment: The [facility]???s estimated glomerular filtration rate (eGFR) will [...] of individuals. Performed By: #### L [id number] ####[facility] ([facility])[address] [place] [address] Glucose [Mass/Vol] 155 mg/dL High 70-100 [facility] Comment on above: Performed By: #### L [id number] ####[facility] ([facility])[address] [place] [address] Potassium [Moles/Vol] 4.1 mmol/L Normal 3.5-5.1 [facility] Comment on above: Performed By: #### L [id number] ####[facility] ([facility])[address] [place] [address] Sodium [Moles/Vol] 141 mmol/L Normal 136-145 [facility] Comment on above: Performed By: #### L [id number] ####[facility] ([facility])[address] [place] [address] Urea nitrogen [Mass/Vol] 31 mg/dL High 7-25 [facility] Comment on above: Performed By: #### L [id number] ####[facility] ([facility])[address] [place] [address] UREA NITROGEN/CREATININE (MASS RATIO) IN SER/PLAS 18.1 Normal [facility] Comment on above: Performed By: #### L [id number] ####[facility] ([facility])[address] [place] [address] POCT GLUCOSE METER UNSOLICIT ED RESULTSon 01-27-2023 Glucose [Mass/Vol] 145 mg/dL High 70-105 [facility] Comment on above: Order Comment: Waive d Testing in the ED is performed under the ED CLIA certificate #[id number]. Result Comment: [email or web address] Performed By: #### L [id number] ####[facility] ([facility])[address] [place] [address] 30on 01-26-2023 30 The patient is Moder ately Stable - Low risk of patient condition declining or worsening The patient's goals for the shift include comfort The clinical goals for the shift include VSS, safety Problem: Safety - Adult Goal: Free from fall injury Outcome: Progressing Flowsheets (Taken 01/26/20231999) Free from fall injury: Assess patient frequently for physical needs Normal [facility] 30 The patient is Moder ately [...] to discharge with patient and caregiver Normal [facility] APTTon 01-26-2023 ACTIVATED PARTIAL THROMBOPLASTIN TIME IN PPP BY COAGULATION ASSAY 80.8 Seconds High 25.0-35.0 [facility] Comment on above: Result Comment: Clin ical significance of the APTT is questionable in the presence of heparin. Performed By: #### L [id number] ####[facility] ([facility])[address] [place] [address] ACTIVATED PARTIAL THROMBOPLASTIN TIME IN PPP BY COAGULATION ASSAY 30.4 Seconds Normal 25.0-35.0 [facility] Comment on above: Order Comment: Check aPTT every 6 hours while on heparin infusion, or per protocol. Result Comment: Clin ical significance of the APTT is questionable in the presence of heparin. Performed By: #### L [id number] ####[facility] ([facility])[address] [place] [address] ACTIVATED PARTIAL THROMBOPLASTIN TIME IN PPP BY COAGULATION ASSAY 30.3 Seconds Normal 25.0-35.0 [facility] Comment on above: Order Comment: Check aPTT every 6 hours while on heparin infusion, or per protocol. Result Comment: Clin ical significance of the APTT is questionable in the presence of heparin. Performed By: #### L [id number] #### [facility] ([facility]) [address] [place] [address] BASIC METABOLIC PANELon 10-2 Anion gap [Moles/Vol] 13 mmol/L Normal 7-20 [facility] Comment on above: Performed By: #### L [id number] #### [facility] ([facility]) [address] [place] [address] Calcium [Mass/Vol] 9.1 mg/dL Normal 8.6-10.3 [facility] Comment on above: Performed By: #### L [id number] #### [facility] ([facility]) [address] [place] [address] Chloride [Moles/Vol] 107 mmol/L Normal 98-107 [facility] [place] Comment on above: Performed By: #### L [id number] #### [facility] ([facility]) [address] [place] [address] CO2 [Moles/Vol] 22 mmol/L Normal 21-31 [facility] Comment on above: Performed By: #### L [id number] #### [facility] ([facility]) [address] [place] [address] Creatinine [Mass/Vol] 1.77 mg/dL High 0.70-1.30 [facility] Comment on above: Performed By: #### L [id number] #### [facility] ([facility]) [address] [place] [address] GLOMERULAR FILTRATION RATE ML/MIN/1.73 SQ M.PREDICTED 40.6 mL/min/1.73m*2 Low >60.0 [facility] Comment on above: Result Comment: The [facility]???s estimated glomerular filtration rate (eGFR) will [...] individuals. Performed By: #### L [id number] #### [facility] ([facility]) [address] [place] [address] Glucose [Mass/Vol] 125 mg/dL High 70-100 [facility] Comment on above: Performed By: #### L [id number] #### [facility] ([facility]) [address] [place] [address] Potassium [Moles/Vol] 4.2 mmol/L Normal 3.5-5.1 [facility] Comment on above: Performed By: #### L [id number] #### [facility] ([facility]) [address] [place] [address] Sodium [Moles/Vol] 138 mmol/L Normal 136-145 [facility] Comment on above: Performed By: #### L [id number] #### [facility] ([facility]) [address] [place] [address] Urea nitrogen [Mass/Vol] 27 mg/dL High 7-25 [facility] Comment on above: Performed By: #### L [id number] #### [facility] ([facility]) [address] [place] [address] UREA NITROGEN/CREATININE (MASS RATIO) IN SER/PLAS 15.3 Normal [facility] Comment on above: Performed By: #### L [id number] #### [facility] ([facility]) [address] [place] [address] CBCon 01-26-2023 Erythrocyte distribution width (RBC) [Ratio] 13.2 % Normal 11.5-15.0 [facility] Comment on above: Performed By: #### L [id number] #### [facility] ([facility]) [address] [place] [address] ERYTHROCYTE MEAN CORPUSCULAR HEMOGLOBIN CONCENTRATION (G/DL) BY AUTOMATED 34.3 g/dL Normal 32.0-35.0 [facility] Comment on above: Performed By: #### L [id number] #### [facility] ([facility]) [address] [place] [address] Hematocrit (Bld) [Volume fraction] 42.0 % Normal 39.0-55.0 [facility] Comment on above: Performed By: #### L [id number] #### [facility] ([facility]) [address] [place] [address] Hemoglobin (Bld) [Mass/Vol] 14.4 g/dL Normal 13.0-17.0 [facility] Comment on above: Performed By: #### L [id number] #### [facility] ([facility]) [address] [place] [address] MCH (RBC) [Entitic mass] 31.0 pg Normal 27.0-33.0 [facility] Comment on above: Performed By: #### L [id number] #### [facility] ([facility]) [address] [place] [address] MCV (RBC) [Entitic vol] 90.3 fL Normal 82.0-98.0 [facility] Comment on above: Performed By: #### L [id number] #### [facility] ([facility]) [address] [place] [address] PLATELETS (10*3/UL) IN BLOOD AUTOMATED COUNT 163 10*3/uL Normal 150-400 [facility] Comment on above: Performed By: #### L [id number] #### [facility] ([facility]) [address] [place] [address] RBC (Bld) [#/Vol] 4.65 10*6/uL Normal 4.20-5.70 [facility] Comment on above: Performed By: #### L [id number] #### [facility] ([facility]) [address] [place] [address] WBC (Bld) [#/Vol] 8.72 10*3/uL Normal 4.00-10.60 [facility] Comment on above: Performed By: #### L [id number] #### [facility] ([facility]) [address] [address] POCT GLUCOSE METER UNSOLICIT ED RESULTSon 01-26-2023 Glucose [Mass/Vol] 195 mg/dL High 70-105 [facility] Comment on above: Order Comment: Waive d Testing in the ED is performed under the ED CLIA certificate #[id number]. Result Comment: [email or web address] Performed By: #### L [id number] #### [facility] ([facility]) [address] [place] [address] Glucose [Mass/Vol] 155 mg/dL High 70-105 [facility] Comment on above: Order Comment: Waive d Testing in the ED is performed under the ED CLIA certificate #[id number]. Result Comment: [email or web address] Performed By: #### L [id number] ####[facility] ([facility])[address] [place] [address] Glucose [Mass/Vol] 120 mg/dL High 70-105 [facility] Comment on above: Order Comment: Waive d Testing in the ED is performed under the ED CLIA certificate #[id number]. Result Comment: [email or web address] Performed By: #### L [id number] ####[facility] ([facility])[address] [facility] [place] [address] 30on 01-25-2023 30 The patient is Moder ately Stable - Low risk of patient condition declining or worsening The patient's goals for the shift include rest The clinical goals for the shift include VSS, cath site stable Normal [facility] 30 The patient is Moder ately [...] to discharge with patient and caregiver Normal [facility] ANTI-XA (HEPARIN LEVEL)on HEPARIN UNFRACTIONATED (U/ML) IN PPP BY CHROMOGENIC METHOD 0.88 IU/mL High 0.3-0.7 [facility] Comment on above: Order Comment: Anti- Xa (Heparin level) added per protocol. Result Comment: Rhona roxaban and Apixaban will interfere with the anti Xa assay used to monitor UFH and LMWH. Performed By: #### L [id number] ####[facility] ([facility])[address] [place] [address] APTTon 01-25-2023 ACTIVATED PARTIAL THROMBOPLASTIN TIME IN PPP BY COAGULATION ASSAY 153.8 Seconds Critically high 25.0-35.0 [facility] Comment on above: Order Comment: Check aPTT every 6 hours while on heparin infusion, or per protocol. Result Comment: Clin ical significance of the APTT is questionable in the presence of heparin. Performed By: #### L [id number] #### [facility] ([facility]) [address] [place] [address] B-TYPE NATRIURETIC PEPTIDEon 01-25-2023 Natriuretic peptide B (Bld) [Mass/Vol] 579 pg/mL High 0-100 [facility] Comment on above: Performed By: #### L [id number] ####[facility] ([facility])[address] [place] [address] BASIC METABOLIC PANELon 12-31 Anion gap [Moles/Vol] 15 mmol/L Normal 7-20 [facility] Comment on above: Performed By: #### L [id number] #### [facility] ([facility]) [address] [place] [address] Calcium [Mass/Vol] 9.6 mg/dL Normal 8.6-10.3 [facility] Comment on above: Performed By: #### L [id number] #### [facility] [address] [place] [address] Chloride [Moles/Vol] 103 mmol/L Normal 98-107 [facility] Comment on above: Performed By: #### L [id number] #### [facility] ([facility]) [address] [place] [address] CO2 [Moles/Vol] 27 mmol/L Normal 21-31 [facility] Comment on above: Performed By: #### L [id number] #### [facility] ([facility]) [address] [place] [address] Creatinine [Mass/Vol] 1.83 mg/dL High 0.70-1.30 [facility] Comment on above: Performed By: #### L [id number] #### [facility] ([facility]) [address] [place] [address] GLOMERULAR FILTRATION RATE ML/MIN/1.73 SQ M.PREDICTED 39.0 mL/min/1.73m*2 Low >60.0 [facility] Comment on above: Result Comment: The [facility]???s estimated glomerular filtration rate (eGFR) will [...] group of individuals. Performed By: #### L [id number] #### [facility] [address] [place] [address] Glucose [Mass/Vol] 168 mg/dL High 70-100 [facility] Comment on above: Performed By: #### L [id number] #### [facility] [address] [place] [address] Potassium [Moles/Vol] 4.7 mmol/L Normal 3.5-5.1 [facility] Comment on above: Performed By: #### L [id number] #### [facility] ([facility]) [address] [place] [address] Sodium [Moles/Vol] 140 mmol/L Normal 136-145 [facility] Comment on above: Performed By: #### L [id number] #### [facility] [address] [place] [address] Urea nitrogen [Mass/Vol] 28 mg/dL High 7-25 [facility] Comment on above: Performed By: #### L [id number] #### [facility] [address] [place] [address] UREA NITROGEN/CREATININE (MASS RATIO) IN SER/PLAS 15.3 Normal [facility] Comment on above: Performed By: #### L [id number] #### [facility] [address] [place] [address] CBCon 01-25-2023 Erythrocyte distribution width (RBC) [Ratio] 13.1 % Normal 11.5-15.0 [facility] Comment on above: Performed By: #### L [id number] ####[facility] ([facility])[address] [place] [address] ERYTHROCYTE MEAN CORPUSCULAR HEMOGLOBIN CONCENTRATION (G/DL) BY AUTOMATED 33.7 g/dL Normal 32.0-35.0 [facility] Comment on above: Performed By: #### L [id number] ####[facility] [place] [address] Hematocrit (Bld) [Volume fraction] 46.3 % Normal 39.0-55.0 [facility] Comment on above: Performed By: #### L [id number] ####[facility] ([facility])[address] [place] [address] Hemoglobin (Bld) [Mass/Vol] 15.6 g/dL Normal 13.0-17.0 [facility] Comment on above: Performed By: #### L [id number] ####[facility] [place] [address] MCH (RBC) [Entitic mass] 30.7 pg Normal 27.0-33.0 [facility] Comment on above: Performed By: #### L [id number] ####[facility] ([facility])[address] [place] [address] MCV (RBC) [Entitic vol] 91.1 fL Normal 82.0-98.0 [facility] Comment on above: Performed By: #### L [id number] ####[facility] ([facility])[address] [place] [address] PLATELETS (10*3/UL) IN BLOOD AUTOMATED COUNT 185 10*3/uL Normal 150-400 [facility] Comment on above: Performed By: #### L [id number] ####[facility] ([facility])[address] [place] [address] RBC (Bld) [#/Vol] 5.08 10*6/uL Normal 4.20-5.70 [facility] Comment on above: Performed By: #### L [id number] ####[facility] [address] WBC (Bld) [#/Vol] 8.91 10*3/uL Normal 4.00-10.60 [facility] Comment on above: Performed By: #### L [id number] ####[facility] [place] [address] CONSULTon 01-25-2023 CONSULT ------ -- Attestation signed [...] y.o. male was a direct transfer from [facility], the patient is known to have [...] artery stenosis, Coronary artery disease, Diabetes mellitus ([facility]), Hyperlipidemia, Hypertension, PVD (peripheral vascular disease) ([facility]), and Third degree heart block ([facility]). Surgical History He has a past [...] mg by mouth in the morning. HYDROcodone-acetaminophen ([place]) 5-325 mg tablet TAKE 1 TABLET BY [...] 93 10 (more content not included)... Normal [facility] HPon 01-25-2023 HP H&P reviewed. The jaron mark was examined and there are no changes to the H&P. 72 y.o. male was a direct transfer from [facility], the patient is known to have Coronary artery disease s/p CABG and multiple PCI in the past, PAD, hyperlipidemia, hypertension. The patient has been having worsening chest pain for the last 2 months which got much worse yesterday, the patient went to the ER his troponin was positive he was referred for further evaluation management to [facility]. The patient had coronary angiography and December 2021 showed patent LAD/MENJIVAR graft, patent SVG to OM and PDA. Patient will undergo LHC to evaluate CAD and look for patency of grafts and previously placed stents. Risks and benefits were discussed in detail with patient and agreed to proceed. Normal [facility] PLATELET COUNTon 01-25-2023 PLATELETS (10*3/UL) IN BLOOD AUTOMATED COUNT 183 10*3/uL Normal 150-400 [facility] Comment on above: Performed By: #### L [id number] #### [facility] ([facility]) [address] [place] [address] POCT GLUCOSE METER UNSOLICIT ED RESULTSon 01-25-2023 Glucose [Mass/Vol] 155 mg/dL High 70-105 [facility] Comment on above: Order Comment: Waive d Testing in the ED is performed under the ED CLIA certificate #[id number]. Result Comment: [email or web address] ugh Performed By: #### L [id number] ####[facility] ([facility])[address] [facility] [place] [address] Glucose [Mass/Vol] 211 mg/dL High 70-105 [facility] Comment on above: Order Comment: Waive d Testing in the ED is performed under the ED CLIA certificate #[id number]. Result Comment: [email or web address] Performed By: #### L [id number] ####[facility] ([facility])[address] [facility] [place] [address] Glucose [Mass/Vol] 143 mg/dL High 70-105 [facility] Comment on above: Order Comment: Waive d Testing in the ED is performed under the ED CLIA certificate #[id number]. Result Comment: [email or web address] Performed By: #### L [id number] ####[facility] ([facility])[address] [facility] [place] [address] TROPONIN Ion 01-25-2023 Troponin I.cardiac [Mass/Vol] 1.75 ng/mL Critically high 0.00-0.04 [facility] Comment on above: Result Comment: M-TR OPONIN INITIAL CRITICAL HIGH; RESPUN AND RETESTED Performed By: #### L [id number] #### [facility] ([facility]) [address] [place] [address] Office Visiton 01-17-2023 Follow-up visit [id number] Lani Lizama 1950 M Date Provider Department Center 01/17/2023 [facility] Family History Problem Relation Age of Onset Heart attack Mother Other Father Other Brother Heart attack Maternal Grandmother Heart attack Maternal Grandfather Family Status - Relation Status Age at Mother Father Brother Maternal Grandmother Maternal Grandfather Level of Service:13812 IA OFFICE/OUTPATIENT ESTABLISHED MOD MDM 30-39 MIN Normal [facility] CT CHEST WO CONon 08-09-2022 CT [...] SCHILLING Date: 2022-08-09 14:00 Normal [facility] A1C HEMOGLOBINon 06-26-2022 HbA1c (Bld) [Mass fraction] 7.4 % [employer] Other Glucose - FINGER STICKon Glucose [Mass/Vol] 267 mg/dL [employer] Other HbA1c (Bld) [Mass fraction]o n 06-26-2022 A1C HEMOGLOBIN [employer] [facility] [employer] Other PTH INTACTon 06-26-2022 PTH, Intact 37 pg/mL Normal 15-65 [facility] Comment on above: Performed By: #### C MP, DOMDM #### [facility] [address] [place] [address] Dr. Mirza Sadler FERRITINon 06-25-2022 Ferritin [Mass/Vol] 269.0 ng/mL Normal 26.0-388.0 [facility] Comment on above: Performed By: #### B PRODUCER #### [facility] [address] [place] [address] Dr. Mirza Sadler HEMOGRAM AND PLATELon 2022 Hematocrit (Bld) [Volume fraction] 44.7 % Normal 42.0-54.0 [facility] Comment on above: Performed By: #### P T, PTT #### [facility] [address] [place] [address] Dr. Mirza Sadler Hemoglobin (Bld) [Mass/Vol] 15.1 g/dL Normal 14.0-18.0 [facility] Comment on above: Performed By: #### P T, PTT #### [facility] [address] [place] [address] Dr. Mirza Sadler MCH (RBC) [Entitic mass] 30.0 pg Normal 25.9-34.0 [facility] Comment on above: Performed By: #### P T, PTT #### [facility] [address] [place] [address] Dr. Mirza Sadler MCHC (RBC) [Mass/Vol] 33.8 g/dL Normal 29.9-35.2 [facility] Comment on above: Performed By: #### P T, PTT #### [facility] [address] [place] [address] Dr. Mirza Sadler MCV (RBC) [Entitic vol] 88.9 fL Normal 80.0-94.0 [facility] Comment on above: Performed By: #### P T, PTT #### [facility] [address] [place] [address] Dr. Mirza Sadler PLT 199 103/ul Normal 150-450 [facility] Comment on above: Performed By: #### P T, PTT #### [facility] [address] [place] [address] Dr. Mirza Sadler RBC 5.03 106/ul Normal 4.70-6.10 [facility] Comment on above: Performed By: #### P T, PTT #### [facility] [address] [place] [address] Dr. Mirza Sadler WBC 8.7 103/ul Normal 4.0-11.0 [facility] Comment on above: Performed By: #### P T, PTT #### [facility] [address] [place] [address] Dr. Mirza Sadler IRON AND TIBCon 06-25-2022 % SATURATION 28.6 % Normal The [facility] Comment on above: Performed By: #### B PRODUCER #### [facility] [address] [place] [address] Dr. Mirza Sadler Iron [Mass/Vol] 82.0 ug/dL Normal 65.0-175.0 [facility] Comment on above: Performed By: #### B PRODUCER #### [facility] [address] [place] [address] Dr. Mirza Sadler TIBC DIRECT 287.0 ug/dL Normal 250.0-450. 0 [facility] Comment on above: Performed By: #### B PRODUCER #### [facility] [address] [place] [address] Dr. Mirza Sadler MAGNESIUMon 06-25-2022 Magnesium [Mass/Vol] 2.0 mg/dL Normal 1.8-2.4 [facility] Comment on above: Performed By: #### B PRODUCER #### [facility] [address] [place] [address] Dr. Mirza Sadler RENAL FUNCTION PANELon 06-25 Albumin [Mass/Vol] 4.2 g/dL Normal 3.4-5.0 The [facility] Comment on above: Performed By: #### B PRODUCER #### [facility] [address] [place] [address] Dr. Mirza Sadler Calcium [Mass/Vol] 9.3 mg/dL Normal 8.5-10.1 The [facility] Comment on above: Performed By: #### B PRODUCER #### [facility] [address] [place] [address] Dr. Mirza Sadler Chloride [Moles/Vol] 108 mmol/L Critically high 98-107 [facility] Comment on above: Performed By: #### B PRODUCER #### [facility] [address] [place] [address] Dr. Mirza Sadler CO2 [Moles/Vol] 29.5 mmol/L Normal 21.0-32.0 [facility] Comment on above: Performed By: #### B PRODUCER #### [facility] [address] [address] [address] Mirza Sadler Creatinine [Mass/Vol] 1.87 mg/dL Critically high 0.70-1.30 [facility] Comment on above: Performed By: #### B PRODUCER #### [facility] [address] [address] [address] Mirza Sadler EGFR-AF IRANIAN 43 mL/min/1.73m2 Critically low >=60 [facility] Comment on above: Performed By: #### B PRODUCER #### [facility] [address] [address] [address] Mirza Sadler EGFR-NON AF IRANIAN 36 mL/min/1.73m2 Critically low >=60 [facility] Comment on above: Performed By: #### B PRODUCER #### [facility] [address] [address] [address] Mirza Sadler Glucose [Mass/Vol] 181 mg/dL Critically high 74-106 [facility] Comment on above: Performed By: #### B PRODUCER #### [facility] [address] [place] [address] Dr. Mirza Sadler Phosphate [Mass/Vol] 4.8 mg/dL Critically high 2.6-4.7 [facility] Comment on above: Performed By: #### B PRODUCER #### [facility] [address] [address] [address] Mirza Sadler Potassium [Moles/Vol] 4.8 mmol/L Normal 3.5-5.1 [facility] Comment on above: Performed By: #### B PRODUCER #### [facility] [address] [address] [address] Mirza Sadler Sodium [Moles/Vol] 146 mmol/L Critically high 136-145 [facility] Comment on above: Performed By: #### B PRODUCER #### [facility] [address] [place] [address] Dr. Mirza Sadler Urea nitrogen [Mass/Vol] 40.0 mg/dL Critically high 7.0-18.0 [facility] Comment on above: Performed By: #### B PRODUCER #### [facility] [address] [place] [address] Dr. Mirza Sadler UA RANDOM W/MICROSCOPICon BACTERIA NONE SEEN Normal NONE SEEN The [facility] Comment on above: Performed By: #### H STROPN #### [facility] [address] [place] [address] Dr. Mirza Sadler Bilirubin Ql (U) Negative Normal NEGATIVE The [facility] Comment on above: Performed By: #### H STROPN #### [facility] [address] [place] [address] Dr. Mirza Sadler CAST NONE SEEN Normal NONE SEEN [facility] Comment on above: Performed By: #### H STROPN #### [facility] [address] [place] [address] Dr. Mirza Sadler Clarity (U) CLEAR Normal CLEAR The [facility] Comment on above: Performed By: #### H STROPN #### [facility] [address] [place] [address] Dr. Mirza Sadler Color (U) LT. YELLOW Normal YELLOW The [facility] Comment on above: Performed By: #### H STROPN #### [facility] [address] [place] [address] Dr. Mirza Sadler Crystals LM Nom (Urine sed) NONE SEEN Normal NONE SEEN The [facility] Comment on above: Performed By: #### H STROPN #### [facility] [address] [place] [address] Dr. Mirza Sadler Epithelial cells LM Ql (Urine sed) FEW Abnormal NONE SEEN /RARE The [facility] Comment on above: Performed By: #### H STROPN #### [facility] [address] [place] [address] Dr. Mirza Sadler Glucose Ql (U) 500 mg/dl Abnormal NEGATIVE The [facility] Comment on above: Performed By: #### H STROPN #### [facility] [address] [place] [address] Dr. Mirza Sadler Hemoglobin Ql (U) Negative Normal NEGATIVE [facility] Comment on above: Performed By: #### H STROPN #### [facility] [address] [address] [address] Mirza Sadler Ketones Ql (U) Negative Normal NEGATIVE [facility] Comment on above: Performed By: #### H STROPN #### [facility] [address] [address] [address] Mirza Sadler LEUKOCYTES Negative Normal NEGATIVE [facility] Comment on above: Performed By: #### H STROPN #### [facility] [address] [address] [address] Mirza Sadler MUCOUS NONE SEEN Normal NONE SEEN [facility] Comment on above: Performed By: #### H STROPN #### [facility] [address] [place] [address] Dr. Mirza Sadler Nitrite Ql (U) Negative Normal NEGATIVE [facility] Comment on above: Performed By: #### H STROPN #### [facility] [address] [place] [address] Dr. Mirza Sadler pH (U) 5.5 [pH] Normal 5-9 [facility] Comment on above: Performed By: #### H STROPN #### [facility] [address] [place] [address] Dr. Mirza Sadler RBC 0-2 Normal 0-2 [facility] Comment on above: Performed By: #### H STROPN #### [facility] [address] [address] [address] Mirza Sadler SPEC GRAVITY 1.015 Normal 1.005-<=1. 025 [facility] Comment on above: Performed By: #### H STROPN #### [facility] [address] [place] [address] Dr. Mirza Sadler UA PROTEIN Negative Normal NEGATIVE/ TRACE The [facility] Comment on above: Performed By: #### H STROPN #### [facility] [address] [address] [address] Mirza Sadler Urobilinogen Qn (U) 0.2 {Luisito'U}/dL Normal 0.2 - 1. 0 The [facility] Comment on above: Performed By: #### H STROPN #### [facility] [address] [place] [address] Dr. Mirza Sadler WBC NONE SEEN Normal NONE SEEN The [facility] Comment on above: Performed By: #### H STROPN #### [facility] [address] [place] [address] Dr. Mirza Sadler URIC ACID SERUMon 06-25-2022 Urate [Mass/Vol] 6.1 mg/dL Normal 3.5-7.2 [facility] Comment on above: Performed By: #### B PRODUCER #### [facility] [address] [place] [address] Dr. Mirza Sadler URINE T PROTEIN CREAT RATIOo n 06-25-2022 Protein (U) [Mass/Vol] 9.7 mg/dL Normal <=12.0 [facility] Comment on above: Performed By: #### C TEGAN MARIN #### [facility] [address] [place] [address] Dr. Mirza Sadler UR PROT CREAT RAT 0.14 Normal The [facility] Comment on above: Performed By: #### C TEGAN MARIN #### [facility] [address] [place] [address] Dr. Mirza Sadler URINE CREAT 71.45 mg/dL Normal 20.00-300. 00 [facility] Comment on above: Performed By: #### C TEGAN MARIN #### [facility] [address] [place] [address] Dr. Mirza Sadler VITAMIN D 25 OHon 06-25-2022 VIT D 25-OH 44.7 ng/mL Normal The [facility] Comment on above: Performed By: #### E RUR #### [facility] [address] [place] [address] Dr. Mirza Sadler VIT D RANGES SEE BELOW Normal The [facility] Comment on above: Result Comment: <20 ng/mL Vit D deficient 20 - <30 ng/mL Vit D insufficient 30 - 100 ng/mL Vit D sufficient >100 ng/mL Potential Toxicity Performed By: #### E RUR #### [facility] [address] [address] [address] Mirza Sadler LIPID PROFILEon 06-18-2022 CHOL-HDL RATIO NORM SEE BELOW Normal [facility] Comment on above: Result Comment: 3.3 - 4.4 LOW RISK 4.4 - 7.1 AVERAGE RISK 7.1 - 11.0 MODERATE RISK >11.0 HIGH RISK Performed By: #### H STROPN #### [facility] [address] [address] [address] Mirza Sadler Cholesterol [Mass/Vol] 136 mg/dL Normal <=200 [facility] Comment on above: Performed By: #### H STROPN #### [facility] [address] [address] [address] Mirza Sadler Cholesterol in HDL [Mass/Vol] 38 mg/dL Critically low 40-60 [facility] Comment on above: Performed By: #### H STROPN #### [facility] [address] [address] [address] Mirza Sadler Cholesterol in LDL [Mass/Vol] 69.6 mg/dL Normal [facility] Comment on above: Performed By: #### H STROPN #### [facility] [address] [address] [address] Mirza Sadler Cholesterol.total/Cho lesterol in HDL [Mass ratio] 3.6 {ratio} Normal [facility] Comment on above: Performed By: #### H STROPN #### [facility] [address] [address] [address] Mirza Sadler HDL NORMAL > or = 60 mg/dl - LO W CARDIOVASCULAR RISK <40 mg/dl - HIGH CARDIOVASCULAR RISK Normal [facility] Comment on above: Performed By: #### H STROPN #### [facility] [address] [address] [address] Mirza Sadler LDL CALC NORMAL SEE BELOW Normal [facility] Comment on above: Result Comment: <100 mg/dl OPTIMAL 100 - 129 mg/dl NEAR OR ABOVE OPTIMAL 130 - 159 mg/dl BORDERLINE HIGH 160 - 189 mg/dl HIGH >190 mg/dl VERY HIGH Performed By: #### H STROPN #### [facility] [address] [place], [place] [address] Dr. Mirza Sadler Triglyceride [Mass/Vol] 142 mg/dL Normal <=150 [facility] Comment on above: Performed By: #### H STROPN #### [facility] [address], [place] [address] Dr. Mirza Sadler VLDL CALC 28.4 mg/dL Normal The [facility] Comment on above: Performed By: #### H STROPN #### [facility] [address], [place] [address] CHEST WO CONon [...] HIGINIO FLANAGAN Date: 2022-06-05 16:58 Normal The [facility] CT CHEST WO CON [employer] Other PROF CHEM 8 (BAS METB)on Anion gap [Moles/Vol] 10.2 mmol/L Normal Th [facility] Comment on above: Performed By: #### B PRODUCER #### [facility] [address] [address] [address] Mirza Sadler Calcium [Mass/Vol] 8.9 mg/dL Normal 8.5-10.1 [facility] Comment on above: Performed By: #### B PRODUCER #### [facility] [address] [address] [address] Mirza Sadler Chloride [Moles/Vol] 101 mmol/L Normal 98-107 [facility] Comment on above: Performed By: #### B PRODUCER #### [facility] [address] [place] [address] Dr. Mirza Sadler CO2 [Moles/Vol] 31.2 mmol/L Normal 21.0-32.0 [facility] Comment on above: Performed By: #### B PRODUCER #### [facility] [address] [place] [address] Dr. Mirza Sadler Creatinine [Mass/Vol] 1.91 mg/dL Critically high 0.70-1.30 [facility] Comment on above: Performed By: #### B PRODUCER #### [facility] [address] [place] [address] Dr. Mirza Sadler EGFR-AF IRANIAN 42 mL/min/1.73m2 Critically low >=60 [facility] Comment on above: Performed By: #### B PRODUCER #### [facility] [address] [place] [address] Dr. Mirza Sadler EGFR-NON AF IRANIAN 35 mL/min/1.73m2 Critically low >=60 [facility] Comment on above: Performed By: #### B PRODUCER #### [facility] [address] [address] [address] Mirza Sadler Glucose [Mass/Vol] 242 mg/dL Critically high 74-106 [facility] Comment on above: Performed By: #### B PRODUCER #### [facility] [address] [place] [address] Dr. Mirza Sadler Potassium [Moles/Vol] 4.4 mmol/L Normal 3.5-5.1 [facility] Comment on above: Performed By: #### B PRODUCER #### [facility] [address] [place] [address] Dr. Mirza Sadler Sodium [Moles/Vol] 138 mmol/L Normal 136-145 [facility] Comment on above: Performed By: #### B PRODUCER #### [facility] [address] [place] [address] Dr. Mirza Sadler Urea nitrogen [Mass/Vol] 33.0 mg/dL Critically high 7.0-18.0 [facility] Comment on above: Performed By: #### B PRODUCER #### [facility] [address] [place] [address] Dr. Mirza Sadler Urea nitrogen/Creatinine [Mass ratio] 17.3 mg/mg Normal [facility] Comment on above: Performed By: #### B PRODUCER #### [facility] [address] [place] [address] Dr. Mirza Sadler PROF CHEM 8 (BAS METB)on Anion gap [Moles/Vol] 10.7 mmol/L Normal [facility] Comment on above: Performed By: #### P T, PTT #### [facility] [address] [place] [address] Dr. Mirza Sadler Calcium [Mass/Vol] 8.9 mg/dL Normal 8.5-10.1 [facility] Comment on above: Performed By: #### P T, PTT #### [facility] [address] [place] [address] Dr. Mirza Sadler Chloride [Moles/Vol] 104 mmol/L Normal 98-107 [facility] Comment on above: Performed By: #### P T, PTT #### [facility] [address] [place] [address] Dr. Mirza Sadler CO2 [Moles/Vol] 29.4 mmol/L Normal 21.0-32.0 [facility] Comment on above: Performed By: #### P T, PTT #### [facility] [address] [place] [address] Dr. Mirza Sadler Creatinine [Mass/Vol] 1.75 mg/dL Critically high 0.70-1.30 [facility] Comment on above: Performed By: #### P T, PTT #### [facility] [address] [address] [address] Mirza Sadler EGFR-AF IRANIAN 47 mL/min/1.73m2 Critically low >=60 [facility] Comment on above: Performed By: #### P T, PTT #### [facility] [address] [address] [address] Mirza Sadler EGFR-NON AF IRANIAN 39 mL/min/1.73m2 Critically low >=60 [facility] Comment on above: Performed By: #### P T, PTT #### [facility] [address] [address] [address] Mirza Sadler Glucose [Mass/Vol] 191 mg/dL Critically high 74-106 T [facility] Comment on above: Performed By: #### P T, PTT #### [facility] [address] [address] [address] Mirza Sadler Potassium [Moles/Vol] 4.1 mmol/L Normal 3.5-5.1 [facility] Comment on above: Performed By: #### P T, PTT #### [facility] [address] [place] [address] Dr. Mirza Sadler Sodium [Moles/Vol] 140 mmol/L Normal 136-145 [facility] Comment on above: Performed By: #### P T, PTT #### [facility] [address] [address] [address] Mirza Sadler Urea nitrogen [Mass/Vol] 31.0 mg/dL Critically high 7.0-18.0 [facility] Comment on above: Performed By: #### P T, PTT #### [facility] [address] [place] [address] Dr. Mirza Sadler Urea nitrogen/Creatinine [Mass ratio] 17.7 mg/mg Normal [facility] Comment on above: Performed By: #### P T, PTT #### [facility] [address] [place] [address] Dr. Mirza Sadler XR CHEST 2 Von [...] FLANAGAN Date: 2022-03-22 16:12 Normal [facility] A1C HEMOGLOBINon 03-20-2022 HbA1c (Bld) [Mass fraction] 6.7 % [employer] Other Glucose - FINGER STICKon Glucose [Mass/Vol] 193 mg/dL [employer] Other HbA1c (Bld) [Mass fraction]o n 03-20-2022 A1C HEMOGLOBIN [facility] Other BNPon 03-13-2022 Natriuretic peptide B (Bld) [Mass/Vol] 4825.0 pg/mL Critically high <=900.0 [facility] Comment on above: Performed By: #### E RUR #### [facility] [address] [address] [address] Mirza Sadler CBC AUTO DIFFon 03-13-2022 BASO # 0.0 103/ul Normal 0.0-0.1 [facility] Comment on above: Performed By: #### E RUR #### [facility] [address] [address] [address] Mirza Sadler Basophils/100 WBC (Bld) 0.6 % Normal 0.2-2.0 [facility] Comment on above: Performed By: #### E RUR #### [facility] [address] [address] [address] Mirza Sadler EO # 0.1 103/ul Normal 0.0-0.7 [facility] Comment on above: Performed By: #### E RUR #### [facility] [address] [place] [address] Dr. Mirza Sadler Eosinophils/100 WBC (Bld) 1.8 % Normal 0.9-7.0 [facility] Comment on above: Performed By: #### E RUR #### [facility] [address] [place] [address] Dr. Mirza Sadler Erythrocyte distribution width (RBC) [Ratio] 14.4 % Normal 11.0-15.0 [facility] Comment on above: Performed By: #### E RUR #### [facility] [address] [place] [address] Dr. Mirza Sadler Hematocrit (Bld) [Volume fraction] 36.1 % Critically low 42.0-54.0 [facility] Comment on above: Performed By: #### E RUR #### [facility] [address] [place] [address] Dr. Mirza Sadler Hemoglobin (Bld) [Mass/Vol] 11.9 g/dL Critically low 14.0-18.0 [facility] Comment on above: Performed By: #### E RUR #### [facility] [address] [place] [address] Dr. Mirza Sadler IG # 0.02 10e3/ul Normal 0.00-0.03 [facility] [facility] Comment on above: Performed By: #### E RUR #### [facility] [address] [place] [address] Dr. Mirza Sadler IG % 0.3 % Normal 0.0-0.5 [facility] Comment on above: Performed By: #### E RUR #### [facility] [address] [place] [address] Dr. Mirza Sadler LYMPH # 1.5 103/ul Normal 1.2-3.8 [facility] Comment on above: Performed By: #### E RUR #### [facility] [address] [place] [address] Dr. Mirza Sadler Lymphocytes/100 WBC (Bld) 22.6 % Normal 20.5-60.0 [facility] Comment on above: Performed By: #### E RUR #### [facility] [address] [place] [address] Dr. Mirza Sadler MANUAL DIFF REQ NO Normal [facility] Comment on above: Performed By: #### E RUR #### [facility] [address] [place] [address] Dr. Mirza Sadler MCH (RBC) [Entitic mass] 29.0 pg Normal 25.9-34.0 [facility] Comment on above: Performed By: #### E RUR #### [facility] [address] [place] [address] Dr. Mirza Sadler MCHC (RBC) [Mass/Vol] 33.0 g/dL Normal 29.9-35.2 [facility] Comment on above: Performed By: #### E RUR #### [facility] [address] [place] [address] Dr. Mirza Sadler MCV (RBC) [Entitic vol] 88.0 fL Normal 80.0-94.0 [facility] Comment on above: Performed By: #### E RUR #### [facility] [address] [place] [address] Dr. Mirza Sadler MONO # 0.7 103/ul Normal 0.3-0.8 [facility] Comment on above: Performed By: #### E RUR #### [facility] [address] [place] [address] Dr. Mirza Sadler Monocytes/100 WBC (Bld) 10.2 % Normal 1.7-12.0 [facility] Comment on above: Performed By: #### E RUR #### [facility] [address] [place] [address] Dr. Mirza Sadler NEUT # 4.3 103/ul Normal 1.4-6.5 [facility] Comment on above: Performed By: #### E RUR #### [facility] [address] [place] [address] Dr. Mirza Sadler Neutrophils/100 WBC (Bld) 64.5 % Normal 43.0-75.0 [facility] Comment on above: Performed By: #### E RUR #### [facility] [address] [address] [address] Mirza Sadler Platelet mean volume (Bld) [Entitic vol] 9.7 fL Normal 9.5-13.5 [facility] Comment on above: Performed By: #### E RUR #### [facility] [address] [address] [address] Mirza Sadler PLT 149 103/ul Critically low 150-450 [facility] Comment on above: Performed By: #### E RUR #### [facility] [address] [address] [address] Mirza Sadler RBC 4.10 106/ul Critically low 4.70-6.10 [facility] Comment on above: Performed By: #### E RUR #### [facility] [address] [address] [address] Mirza Sadler WBC 6.6 103/ul Normal 4.0-11.0 [facility] Comment on above: Performed By: #### E RUR #### [facility] [address] [address] [address] Mirza Sadler PROF CHEM 8 (BAS METB)on Anion gap [Moles/Vol] 14.6 mmol/L Normal [facility] Comment on above: Performed By: #### E RUR #### [facility] [address] [address] [address] Mirza Sadler Calcium [Mass/Vol] 8.5 mg/dL Normal 8.5-10.1 [facility] Comment on above: Performed By: #### E RUR #### [facility] [address] [address] [address] Mirza Sadler Chloride [Moles/Vol] 104 mmol/L Normal 98-107 [facility] Comment on above: Performed By: #### E RUR #### [facility] [address] [address] [address] Mirza Sadler CO2 [Moles/Vol] 22.7 mmol/L Normal 21.0-32.0 [facility] Comment on above: Performed By: #### E RUR #### [facility] [address] [address] [address] Mirza Sadler Creatinine [Mass/Vol] 1.78 mg/dL Critically high 0.70-1.30 [facility] Comment on above: Performed By: #### E RUR #### [facility] [address] [address] [address] Mirza Sadler EGFR-AF IRANIAN 46 mL/min/1.73m2 Critically low >=60 [facility] Comment on above: Performed By: #### E RUR #### [facility] [address] [address] [address] Mirza Sadler EGFR-NON AF IRANIAN 38 mL/min/1.73m2 Critically low >=60 [facility] Comment on above: Performed By: #### E RUR #### [facility] [address] [address] [address] Mirza Sadler Glucose [Mass/Vol] 121 mg/dL Critically high 74-106 [facility] Comment on above: Performed By: #### E RUR #### [facility] [address] [address] [address] Mirza Sadler Potassium [Moles/Vol] 3.3 mmol/L Critically low 3.5-5.1 [facility] Comment on above: Performed By: #### E RUR #### [facility] [address] [address] [address] Mirza Sadler Sodium [Moles/Vol] 138 mmol/L Normal 136-145 [facility] Comment on above: Performed By: #### E RUR #### [facility] [address] [address] [address] Mirza Sadler Urea nitrogen [Mass/Vol] 30.0 mg/dL Critically high 7.0-18.0 [facility] Comment on above: Performed By: #### E RUR #### [facility] [address] [place] [address] Dr. Mirza Sadler Urea nitrogen/Creatinine [Mass ratio] 16.9 mg/mg Normal [facility] Comment on above: Performed By: #### E RUR #### [facility] [address] [place] [address] Dr. Mirza Sadler BNPon 03-12-2022 Natriuretic peptide B (Bld) [Mass/Vol] 7452.0 pg/mL Critically high <=900.0 [facility] Comment on above: Performed By: #### C MP, CMADM #### [facility] [address] [place] [address] Dr. Mirza Sadler CBC AUTO DIFFon 03-12-2022 BASO # 0.0 103/ul Normal 0.0-0.1 [facility] Comment on above: Performed By: #### P T, PTT #### [facility] [address] [place] [address] Dr. Mirza Sadler Basophils/100 WBC (Bld) 0.4 % Normal 0.2-2.0 [facility] Comment on above: Performed By: #### P T, PTT #### [facility] [address] [place] [address] Dr. Mirza Sadler EO # 0.0 103/ul Normal 0.0-0.7 [facility] Comment on above: Performed By: #### P T, PTT #### [facility] [address] [place] [address] Dr. Mirza Sadler Eosinophils/100 WBC (Bld) 0.2 % Critically low 0.9-7.0 [facility] Comment on above: Performed By: #### P T, PTT #### [facility] [address] [place] [address] Dr. Mirza Sadler Erythrocyte distribution width (RBC) [Ratio] 14.6 % Normal 11.0-15.0 [facility] Comment on above: Performed By: #### P T, PTT #### [facility] [address] [place] [address] Dr. Mirza Sadler Hematocrit (Bld) [Volume fraction] 37.8 % Critically low 42.0-54.0 [facility] Comment on above: Performed By: #### P T, PTT #### [facility] [address] [place] [address] Dr. Mirza Sadler Hemoglobin (Bld) [Mass/Vol] 12.2 g/dL Critically low 14.0-18.0 [facility] Comment on above: Performed By: #### P T, PTT #### [facility] [address] [place] [address] Dr. Mirza Sadler IG # 0.03 10e3/ul Normal 0.00-0.03 [facility] Comment on above: Performed By: #### P T, PTT #### [facility] [address] [place] [address] Dr. Mirza Sadler IG % 0.3 % Normal 0.0-0.5 [facility] Comment on above: Performed By: #### P T, PTT #### [facility] [address] [place] [address] Dr. Mirza Sadler LYMPH # 1.2 103/ul Normal 1.2-3.8 [facility] Comment on above: Performed By: #### P T, PTT #### [facility] [address] [place] [address] Dr. Mirza Sadler Lymphocytes/100 WBC (Bld) 11.5 % Critically low 20.5-60.0 [facility] Comment on above: Performed By: #### P T, PTT #### [facility] [address] [place] [address] Dr. Mirza Sadler MANUAL DIFF REQ NO Normal [facility] Comment on above: Performed By: #### P T, PTT #### [facility] [address] [place] [address] Dr. Mirza Sadler MCH (RBC) [Entitic mass] 29.0 pg Normal 25.9-34.0 [facility] Comment on above: Performed By: #### P T, PTT #### [facility] [address] [place] [address] Dr. Mirza Sadler MCHC (RBC) [Mass/Vol] 32.3 g/dL Normal 29.9-35.2 [facility] Comment on above: Performed By: #### P T, PTT #### [facility] [address] [place] [address] Dr. Mirza Sadler MCV (RBC) [Entitic vol] 89.8 fL Normal 80.0-94.0 [facility] Comment on above: Performed By: #### P T, PTT #### [facility] [address] [place] [address] Dr. Mirza Sadler MONO # 0.7 103/ul Normal 0.3-0.8 [facility] Comment on above: Performed By: #### P T, PTT #### [facility] [address] [place] [address] Dr. Mirza Sadler Monocytes/100 WBC (Bld) 6.8 % Normal 1.7-12.0 [facility] Comment on above: Performed By: #### P T, PTT #### [facility] [address] [place] [address] Dr. Mirza Sadler NEUT # 8.5 103/ul Critically high 1.4-6.5 [facility] Comment on above: Performed By: #### P T, PTT #### [facility] [address] [place] [address] Dr. Mirza Sadler Neutrophils/100 WBC (Bld) 80.8 % Critically high 43.0-75.0 [facility] Comment on above: Performed By: #### P T, PTT #### [facility] [address] [place] [address] Dr. Mirza Sadler Platelet mean volume (Bld) [Entitic vol] 9.8 fL Normal 9.5-13.5 [facility] Comment on above: Performed By: #### P T, PTT #### [facility] [address] [place] [address] Dr. Mirza Sadler PLT 165 103/ul Normal 150-450 [facility] Comment on above: Performed By: #### P T, PTT #### [facility] [address] [place] [address] Dr. Mirza Sadler RBC 4.21 106/ul Critically low 4.70-6.10 [facility] Comment on above: Performed By: #### P T, PTT #### [facility] [address] [address] [address] Mirza Sadler WBC 10.5 103/ul Normal 4.0-11.0 [facility] Comment on above: Performed By: #### P T, PTT #### [facility] [address] [address] [address] Mirza Sadler ECHOCARDIO M/2D COMPLETEon 1 05-13-2021 ECHOCARDIO M/2D COMPLETE Patient: LANI LIZAMA Exam Date: 03/12/2022 : 1950 Gender:M Ordering : DR OBDULIO ALVA . Admission #: [id number] Family : DR HARLEY CRESPO D.O. Order #: [id number] CLICK HERE TO VIEW EXAM ECHOCARDIOGRAM REPORT PROCEDURE: CARDIO PULMONARY ECHOCARDIO M/2D COMP INDICATIONS: Elevated TROP and BNPChest pain, recent [place], CHF, CBAG x 5, PTCA x 7 [...] Pressure: 73.45 ml, 73.45 ml Dictated by: Luisito Foreman M.D. on 03/13/2022 at 17:37 Approved by: Luisito Foreman M.D. on 03/13/2022 at 17:42 Normal [facility] PROF CHEM 8 (BAS METB)on Anion gap [Moles/Vol] 17.8 mmol/L Normal [facility] Comment on above: Performed By: #### C TEGAN MARIN #### [facility] [address] [place], [place] [address] Dr. Mirza Sadler Calcium [Mass/Vol] 8.6 mg/dL Normal 8.5-10.1 [facility] Comment on above: Performed By: #### TEGAN Hoskins MP #### [facility] [address] [address] [address] Mriza Sadler Chloride [Moles/Vol] 103 mmol/L Normal 98-107 [facility] Comment on above: Performed By: #### C TANIA, CMADM #### [facility] [address] [address] [address] Mirza Sadler CO2 [Moles/Vol] 22.3 mmol/L Normal 21.0-32.0 [facility] Comment on above: Performed By: #### C TANIA, CMADM #### [facility] [address] [address] [address] Mirza Sadler Creatinine [Mass/Vol] 1.81 mg/dL Critically high 0.70-1.30 [facility] Comment on above: Performed By: #### C TANIA, CMADM #### [facility] [address] [address] [address] Mirza Sadler EGFR-AF IRANIAN 45 mL/min/1.73m2 Critically low >=60 [facility] Comment on above: Performed By: #### C TANIA, CMADM #### [facility] [address] [address] [address] Mirza Sadler EGFR-NON AF IRANIAN 37 mL/min/1.73m2 Critically low >=60 [facility] Comment on above: Performed By: #### C TANIA, CMADM #### [facility] [address] [address] [address] Mirza Sadler Glucose [Mass/Vol] 161 mg/dL Critically high 74-106 [facility] Comment on above: Performed By: #### C TANIA, CMADM #### [facility] [address] [address] [address] Mirza Sadler Potassium [Moles/Vol] 4.1 mmol/L Normal 3.5-5.1 [facility] Comment on above: Performed By: #### C TANIA, CMADM #### [facility] [address] [address] [address] Mirza Sadler Sodium [Moles/Vol] 139 mmol/L Normal 136-145 [facility] Comment on above: Performed By: #### C TANIA, CMADM #### [facility] [address] [place] [address] Dr. Mirza Sadler Urea nitrogen [Mass/Vol] 28.0 mg/dL Critically high 7.0-18.0 [facility] Comment on above: Performed By: #### C MP, CMADM #### [facility] [address] [place] [address] Dr. Mirza Sadler Urea nitrogen/Creatinine [Mass ratio] 15.5 mg/mg Normal [facility] Comment on above: Performed By: #### C TANIA, CMADM #### [facility] [address] [place] [address] Dr. Mirza Sadler TROPONIN, HIGH SENSITIVITYon 03-12-2022 HSTROP 60314.5 pg/mL Critically high 4.0-76.1 [facility] Comment on above: Result Comment: CUT- OFF POINTS HAVE BEEN ESTABLISHED BASED ON THE FOURTH UNIVERSAL DEFINITIONS OF MYOCARDIAL INFARCTION. THE UPPER REFERENCE LIMIT (URL) OF TROPONIN, DEFINED THE 99TH PERCENTILE OF cTnI DISTRIBUTION IN A REFERENCE POPULATION, HAS BEEN CONFIRMED THE DECISION THRESHOLD FOR [place] DIAGNOSIS. Performed By: #### C TANIA CMADM #### [facility] [address] [place] [address] Dr. Mirza Sadler BNPon 03-11-2022 Natriuretic peptide B (Bld) [Mass/Vol] 1378.0 pg/mL Critically high <=900.0 [facility] Comment on above: Performed By: #### P T, PTT #### [facility] [address] [place] [address] Dr. Mirza Sadler CARDIAC PARUL 3-6on 2 CK [Catalytic activity/Vol] 139 U/L Normal 39-308 [facility] Comment on above: Performed By: #### E RUR #### [facility] [address] [place] [address] Dr. Mirza Sadler CK.MB [Mass/Vol] 7.50 ng/mL Critically high <=3.60 [facility] Comment on above: Performed By: #### E RUR #### [facility] [address] [place] [address] Dr. Mirza Sadler HSTROP 1419.3 pg/mL Critically high 4.0-76.1 [facility] Comment on above: Result Comment: CUT- OFF POINTS HAVE BEEN ESTABLISHED BASED ON THE FOURTH UNIVERSAL DEFINITIONS OF MYOCARDIAL INFARCTION. THE UPPER REFERENCE LIMIT (URL) OF TROPONIN, DEFINED THE 99TH PERCENTILE OF cTnI DISTRIBUTION IN A REFERENCE POPULATION, HAS BEEN CONFIRMED THE DECISION THRESHOLD FOR [place] DIAGNOSIS. Performed By: #### E RUR #### [facility] [address] [place] [address] Dr. Mirza Sadler CBC AUTO DIFFon 03-11-2022 BASO # 0.1 103/ul Normal 0.0-0.1 [facility] Comment on above: Performed By: #### E RUR #### [facility] [address] [place] [address] Dr. Mirza Sadler Basophils/100 WBC (Bld) 0.5 % Normal 0.2-2.0 [facility] Comment on above: Performed By: #### E RUR #### [facility] [address] [place] [address] Dr. Mirza Sadler EO # 0.2 103/ul Normal 0.0-0.7 [facility] Comment on above: Performed By: #### E RUR #### [facility] [address] [place] [address] Dr. Mirza Sadler Eosinophils/100 WBC (Bld) 1.3 % Normal 0.9-7.0 [facility] Comment on above: Performed By: #### E RUR #### [facility] [address] [place] [address] Dr. Mirza Sadler Erythrocyte distribution width (RBC) [Ratio] 14.6 % Normal 11.0-15.0 [facility] Comment on above: Performed By: #### E RUR #### [facility] [address] [place] [address] Dr. Mirza Sadler Hematocrit (Bld) [Volume fraction] 43.1 % Normal 42.0-54.0 [facility] Comment on above: Performed By: #### E RUR #### [facility] [address] [place] [address] Dr. Mirza Sadler Hemoglobin (Bld) [Mass/Vol] 14.2 g/dL Normal 14.0-18.0 [facility] Comment on above: Performed By: #### E RUR #### [facility] [address] [place] [address] Dr. Mirza Sadler IG # 0.07 10e3/ul Critically high 0.00-0.03 [facility] Comment on above: Performed By: #### E RUR #### [facility] [address] [place] [address] Dr. Mirza Sadler IG % 0.5 % Normal 0.0-0.5 [facility] Comment on above: Performed By: #### E RUR #### [facility] [address] [place] [address] Dr. Mirza Sadler LYMPH # 1.3 103/ul Normal 1.2-3.8 [facility] Comment on above: Performed By: #### E RUR #### [facility] [address] [place] [address] Dr. Mirza Sadler Lymphocytes/100 WBC (Bld) 8.6 % Critically low 20.5-60.0 [facility] Comment on above: Performed By: #### E RUR #### [facility] [address] [place] [address] Dr. Mirza Sadler MANUAL DIFF REQ NO Normal [facility] Comment on above: Performed By: #### E RUR #### [facility] [address] [address] [address] Mirza Sadler MCH (RBC) [Entitic mass] 29.3 pg Normal 25.9-34.0 [facility] Comment on above: Performed By: #### E RUR #### [facility] [address] [place] [address] Dr. Mirza Sadler MCHC (RBC) [Mass/Vol] 32.9 g/dL Normal 29.9-35.2 [facility] Comment on above: Performed By: #### E RUR #### [facility] [address] [place] [address] Dr. Mirza Sadler MCV (RBC) [Entitic vol] 88.9 fL Normal 80.0-94.0 [facility] Comment on above: Performed By: #### E RUR #### [facility] [address] [place] [address] Dr. Mirza Sadler MONO # 0.7 103/ul Normal 0.3-0.8 [facility] Comment on above: Performed By: #### E RUR #### [facility] [address] [place] [address] Dr. Mirza Sadler Monocytes/100 WBC (Bld) 4.3 % Normal 1.7-12.0 [facility] Comment on above: Performed By: #### E RUR #### [facility] [address] [place] [address] Dr. Mirza Sadler NEUT # 12.8 103/ul Critically high 1.4-6.5 [facility] Comment on above: Performed By: #### E RUR #### [facility] [address] [place] [address] Dr. Mirza Sadler Neutrophils/100 WBC (Bld) 84.8 % Critically high 43.0-75.0 [facility] Comment on above: Performed By: #### E RUR #### [facility] [address] [place] [address] Dr. Mirza Sadler Platelet mean volume (Bld) [Entitic vol] 9.9 fL Normal 9.5-13.5 [facility] Comment on above: Performed By: #### E RUR #### [facility] [address] [place] [address] Dr. Mirza Sadler PLT 201 103/ul Normal 150-450 [facility] Comment on above: Performed By: #### E RUR #### [facility] [address] [place] [address] Dr. Mirza Sadler RBC 4.85 106/ul Normal 4.70-6.10 [facility] Comment on above: Performed By: #### E RUR #### [facility] [address] [place] [address] Dr. Mirza Sadler WBC 15.0 103/ul Critically high 4.0-11.0 [facility] Comment on above: Performed By: #### E RUR #### [facility] [address] [place] [address] Dr. Mirza Sadler CULTURE BLOODon 03-11-2022 Microscopic examination of blood, culture Culture Observations: NO GROWTH AT 5 DAYS. Normal [facility] Comment on above: Performed By: #### H STROPN #### [facility] [address] [address] [address] Mirza Sadler Microscopic examination of blood, culture Culture Observations: NO GROWTH AT 5 DAYS. Normal [facility] Comment on above: Performed By: #### H STROPN #### [facility] [address] [place] [address] Dr. Mirza Sadler [facility]01 SARS-CoV-2 (COVID-19) RNA RAMO+probe Ql (Unsp spec) Not detected Normal NOT DETECTED [facility] Comment on above: Result Comment: When [...] for this test is supported by the [place] of Health and Human Service's declaration that [...] used). Performed By: #### H STROPN #### [facility] [address] [place] [address] Dr. Mirza Sadler ER URINE PROFILEon 2 Bilirubin Ql (U) Negative Normal NEGATIVE [facility] Comment on above: Performed By: #### E RUR #### [facility] [address] [place] [address] Dr. Mirza Sadler Clarity (U) CLEAR Normal CLEAR [facility] Comment on above: Performed By: #### E RUR #### [facility] [address] [place] [address] Dr. Mirza Sadler Color (U) LT. YELLOW Normal YELLOW [facility] Comment on above: Performed By: #### E RUR #### [facility] [address] [place] [address] Dr. Mirza Sadler ERUAHGrace A micrscopic examina tion will be performed if indicated. Normal [facility] Comment on above: Performed By: #### E RUR #### [facility] [address] [place] [address] Dr. Mirza Sadler Glucose Ql (U) >1000 Abnormal NEGATIVE The [facility] Comment on above: Performed By: #### E RUR #### [facility] [address] [place] [address] Dr. Mirza Sadler Hemoglobin Ql (U) Negative Normal NEGATIVE [facility] Comment on above: Performed By: #### E RUR #### [facility] [address] [place] [address] Dr. Mirza Sadler Ketones Ql (U) 15 mg/dl Abnormal NEGATIVE [facility] Comment on above: Performed By: #### E RUR #### [facility] [address] [place] [address] Dr. Mirza Sadler LEUKOCYTES Negative Normal NEGATIVE [facility] Comment on above: Performed By: #### E RUR #### [facility] [address] [place] [address] Dr. Mirza Sadler Nitrite Ql (U) Negative Normal NEGATIVE [facility] Comment on above: Performed By: #### E RUR #### [facility] [address] [place] [address] Dr. Mirza Sadler pH (U) 5.0 [pH] Normal 5-9 [facility] Comment on above: Performed By: #### E RUR #### [facility] [address] [place] [address] Dr. Mirza Sadler SPEC GRAVITY 1.020 Normal 1.005-<=1. 025 [facility] Comment on above: Performed By: #### E RUR #### [facility] [address] [place] [address] Dr. Mirza Sadler UA PROTEIN TRACE Normal NEGATIVE/ TRACE [facility] Comment on above: Performed By: #### E RUR #### [facility] [address] [place] [address] Dr. Mirza Sadler UR MICRO IND NOT INDICATED Normal [facility] Comment on above: Performed By: #### E RUR #### [facility] [address] [place] [address] Dr. Mirza Sadler Urobilinogen Qn (U) 0.2 {Luisito'U}/dL Normal 0.2 - 1. 0 [facility] Comment on above: Performed By: #### E RUR #### [facility] [address] [place] [address] Dr. Mirza Sadler POINT OF CARE GLUCOSEon 03-01 Glucose [Mass/Vol] 161 mg/dL Critically high 74-106 [facility] Comment on above: Performed By: #### P T, PTT #### [facility] [address] [place] [address] Dr. Mirza Sadler PROF 14(COMP METB)on 022 Albumin [Mass/Vol] 4.3 g/dL Normal 3.4-5.0 [facility] Comment on above: Performed By: #### P T, PTT #### [facility] [address] [place] [address] Dr. Mirza Sadler Albumin/Globulin [Mass ratio] 1.1 {ratio} Normal [facility] Comment on above: Performed By: #### P T, PTT #### [facility] [address] [place] [address] Dr. Mirza Sadler ALP [Catalytic activity/Vol] 156 U/L Critically high 46-116 [facility] Comment on above: Performed By: #### P T, PTT #### [facility] [address] [address] [address] Mirza Sadler ALT [Catalytic activity/Vol] 24 U/L Normal 16-63 [facility] Comment on above: Performed By: #### P T, PTT #### [facility] [address] [address] [address] Mirza Sadler Anion gap [Moles/Vol] 16.7 mmol/L Normal [facility] Comment on above: Performed By: #### P T, PTT #### [facility] [address] [address] [address] Mirza Sadler AST [Catalytic activity/Vol] 21 U/L Normal 15-37 [facility] Comment on above: Performed By: #### P T, PTT #### [facility] [address] [place] [address] Dr. Mirza Sadler Bilirubin [Mass/Vol] 1.1 mg/dL Critically high 0.2-1.0 [facility] Comment on above: Performed By: #### P T, PTT #### [facility] [address] [address] [address] Mirza Sadler Calcium [Mass/Vol] 8.8 mg/dL Normal 8.5-10.1 [facility] Comment on above: Performed By: #### P T, PTT #### [facility] [address] [place] [address] Dr. Mirza Sadler Chloride [Moles/Vol] 105 mmol/L Normal 98-107 [facility] Comment on above: Performed By: #### P T, PTT #### [facility] [address] [address] [address] Mirza Sadler CO2 [Moles/Vol] 25.0 mmol/L Normal 21.0-32.0 [facility] Comment on above: Performed By: #### P T, PTT #### [facility] [address] [place] [address] Dr. Mirza Sadler Creatinine [Mass/Vol] 1.57 mg/dL Critically high 0.70-1.30 [facility] Comment on above: Performed By: #### P T, PTT #### [facility] [address] [address] [address] Mirza Sadler EGFR-AF IRANIAN 53 mL/min/1.73m2 Critically low >=60 [facility] Comment on above: Performed By: #### P T, PTT #### [facility] [address] [address] [address] Mirza Sadler EGFR-NON AF IRANIAN 44 mL/min/1.73m2 Critically low >=60 [facility] Comment on above: Performed By: #### P T, PTT #### [facility] [address] [address] [address] Mirza Sadler Globulin (S) [Mass/Vol] 3.9 g/dL Normal [facility] Comment on above: Performed By: #### P T, PTT #### [facility] [address] [address] [address] Mirza Sadler Glucose [Mass/Vol] 188 mg/dL Critically high 74-106 [facility] Comment on above: Performed By: #### P T, PTT #### [facility] [address] [address] [address] Mirza Sadler Potassium [Moles/Vol] 3.7 mmol/L Normal 3.5-5.1 [facility] Comment on above: Performed By: #### P T, PTT #### [facility] [address] [address] [address] Mirza Sadler Protein [Mass/Vol] 8.2 g/dL Normal 6.4-8.2 [facility] Comment on above: Performed By: #### P T, PTT #### [facility] [address] [address] [address] Mirza Sadler Sodium [Moles/Vol] 143 mmol/L Normal 136-145 [facility] Comment on above: Performed By: #### P T, PTT #### [facility] [address] [address] [address] Mirza Sadler Urea nitrogen [Mass/Vol] 20.0 mg/dL Critically high 7.0-18.0 [facility] Comment on above: Performed By: #### P T, PTT #### [facility] [address] [place] [address] Dr. Mirza Sadler Urea nitrogen/Creatinine [Mass ratio] 12.7 mg/mg Normal [facility] Comment on above: Performed By: #### P T, PTT #### [facility] [address] [place] [address] Dr. Mirza Sadler RESPIRATORY PANEL PLUSon Adenovirus Not detected Normal NOT DETECTED [facility] Comment on above: Performed By: #### P T, PTT #### [facility] [address] [place] [address] Dr. Mirza Ball Parapertusis Not detected Normal NOT DETECTED [facility] Comment on above: Performed By: #### P T, PTT #### [facility] [address] [place] [address] Dr. Mirza Ball Pertussis Not detected Normal NOT DETECTED [facility] Comment on above: Performed By: #### P T, PTT #### [facility] [address] [place] [address] Dr. Mirza Sadler Chlamydia Pneumoniae Not detected Normal NOT DETECTED [facility] Comment on above: Performed By: #### P T, PTT #### [facility] [address] [place] [address] Dr. Mirza Sadler Coronavirus 229E Not detected Normal NOT DETECTED [facility] Comment on above: Performed By: #### P T, PTT #### [facility] [address] [place] [address] Dr. Mirza Sadler Coronavirus HKU1 Not detected Normal NOT DETECTED [facility] Comment on above: Performed By: #### P T, PTT #### [facility] [address] [place] [address] Dr. Mirza Sadler Coronavirus NL63 Not detected Normal NOT DETECTED [facility] Comment on above: Performed By: #### P T, PTT #### [facility] [address] [place] [address] Dr. Mirza Sadler Coronavirus OC43 Not detected Normal NOT DETECTED [facility] Comment on above: Performed By: #### P T, PTT #### [facility] [address] [place] [address] Dr. Mirza Sadler Influenza A H1 2009 Not detected Normal NOT DETECTED [facility] Comment on above: Performed By: #### P T, PTT #### [facility] [address] [place] [address] Dr. Mirza Sadler Influenza A H3 Not detected Normal NOT DETECTED [facility] Comment on above: Performed By: #### P T, PTT #### [facility] [address] [place] [address] Dr. Mirza Sadler Influenza B Not detected Normal NOT DETECTED [facility] Comment on above: Performed By: #### P T, PTT #### [facility] [address] [place] [address] Dr. Mirza Sadler Metapneumovirus Not detected Normal NOT DETECTED [facility] Comment on above: Performed By: #### P T, PTT #### [facility] [address] [place] [address] Dr. Mirza Sadler Mycoplas. Pneumoniae Not detected Normal NOT DETECTED [facility] Comment on above: Performed By: #### P T, PTT #### [facility] [address] [place] [address] Dr. Mirza Sadler Parainfluenza 1 Not detected Normal NOT DETECTED [facility] Comment on above: Performed By: #### P T, PTT #### [facility] [address] [place] [address] Dr. Mirza Sadler Parainfluenza 2 Not detected Normal NOT DETECTED [facility] Comment on above: Performed By: #### P T, PTT #### [facility] [address] [place] [address] Dr. Mirza Sadler Parainfluenza 3 Not detected Normal NOT DETECTED [facility] Comment on above: Performed By: #### P T, PTT #### [facility] [address] [place] [address] Dr. Mirza Sadler Parainfluenza 4 Not detected Normal NOT DETECTED [facility] Comment on above: Performed By: #### P T, PTT #### [facility] [address] [place] [address] Dr. Mirza Sadler Rhino/Enterovirus Not detected Normal NOT DETECTED [facility] Comment on above: Performed By: #### P T, PTT #### [facility] [address] [place] [address] Dr. Mirza Sadler RP2 Header 1 RESPIRATORY PANEL: VIRUSES Normal [facility] Comment on above: Performed By: #### P T, PTT #### [facility] [address] [place] [address] Dr. Mirza Sadler RP2 Header 2 RESPIRATORY PANEL: BACTERIA Normal [facility] Comment on above: Performed By: #### P T, PTT #### [facility] [address] [place] [address] Dr. Mirza Sadler RSV Not detected Normal NOT DETECTED [facility] Comment on above: Performed By: #### P T, PTT #### [facility] [address] [place] [address] Dr. Mirza Sadler SARS-CoV-2 (COVID-19) RNA RAMO+probe Ql (Unsp spec) Not detected Normal NOT DETECTED [facility] Comment on above: Performed By: #### P T, PTT #### [facility] [address] [place] [address] Dr. Mirza Sadler TROPONIN, HIGH SENSITIVITYon 03-11-2022 HSTROP 04122.8 pg/mL Critically high 4.0-76.1 [facility] Comment on above: Result Comment: CUT- OFF POINTS HAVE BEEN ESTABLISHED BASED ON THE FOURTH UNIVERSAL DEFINITIONS OF MYOCARDIAL INFARCTION. THE UPPER REFERENCE LIMIT (URL) OF TROPONIN, DEFINED THE 99TH PERCENTILE OF cTnI DISTRIBUTION IN A REFERENCE POPULATION, HAS BEEN CONFIRMED THE DECISION THRESHOLD FOR [place] DIAGNOSIS. Performed By: #### C MP, CMADM #### [facility] [address] [place] [address] Dr. Mirza Sadler HSTROP 41.0 pg/mL Normal 4.0-76.1 [facility] Comment on above: Result Comment: CUT- OFF POINTS HAVE BEEN ESTABLISHED BASED ON THE FOURTH UNIVERSAL DEFINITIONS OF MYOCARDIAL INFARCTION. THE UPPER REFERENCE LIMIT (URL) OF TROPONIN, DEFINED THE 99TH PERCENTILE OF cTnI DISTRIBUTION IN A REFERENCE POPULATION, HAS BEEN CONFIRMED THE DECISION THRESHOLD FOR [place] DIAGNOSIS. Performed By: #### P T, PTT #### [facility] [address] [place] [address] Dr. Mirza Sadler XR CHEST 1 Von [...] ACEVES Date: 2022-03-11 05:42 Normal [facility] NM MUGAon 03-09-2022 NM MUGA [...] by: SHANNON LANDIS Date: 2022-03-09 12:26 Normal [facility] CT CHEST WO CONon 03-02-2022 [...] HIGINIO FLANAGAN Date: 2022-03-02 08:52 Normal [facility] Creatinine and Glomerular fi ltration rate.predicted panel (S/P/Bld)Ordered By: Gagan Shahid on 01-17-2022 Creatinine [Mass/Vol] 1.53 mg/dL 0.64-1.27 [facility] Estimated glomerular filtrat ion rate (GFR) non- AmericanOrdered By: Gagan Shahid on 01-17-2022 GFR/1.73 sq M.predicted among non-blacks MDRD (S/P/Bld) [Vol rate/Area] 45 mL/Min [facility] Glucose Glucometer (BldC) [M ass/Vol]Ordered By: Gagan Shahid on 01-17-2022 Glucose [Mass/Vol] 178 mg/dL [facility] Comment on above: Random Glucose Refer ence Range is dependent on time and content of last meal. Glucose of more than 200 mg/dL in a nonstressed, ambulatory subject supports the diagnosis of Diabetes Mellitus. No Panel InformationOrdered By: Gagan Shahid on 01-17-2022 Estimated GFR () 55 mL/Min [facility] Comment on above: GFR estimated refere nce range: According to KDOQI guidelines, <60 ml/min/1.73m2 is sufficient to diagnose a patient with chronic kidney disease. Pharmacy Creatinine Clearance (Chem 42.00 [facility] Serum or plasma anion gap de terminationOrdered By: Gagan Shahid on 01-17-2022 Anion gap [Moles/Vol] 12.0 mmol/L 6.0-15.0 [facility] Serum or plasma calcium radha urement (mass/volume)Ordered By: Gagan Shahid on 01-17-2022 Calcium [Mass/Vol] 9.0 mg/dL 8.2-10.2 [facility] Serum or plasma chloride shanae surement (moles/volume)Ordered By: aGgan Shahid on 01-17-2022 Chloride [Moles/Vol] 107 mmol/L 95-114 [facility] Serum or plasma glucose radha urement (mass/volume)Ordered By: Gagan Shahid on 01-17-2022 Glucose [Mass/Vol] 142 mg/dL 70-100 [facility] Comment on above: ADA recommended refe rence rangeRandom Glucose Reference Range is dependent on time and content of last meal. Glucose of more than 200 mg/dL in a nonstressed, ambulatory subject supports the diagnosis of Diabetes Mellitus. Serum or plasma potassium me asurement (moles/volume)Ordered By: Gagan Shahid on 01-17-2022 Potassium [Moles/Vol] 3.5 mmol/L 3.5-5.1 [facility] Serum or plasma sodium measu rement (moles/volume)Ordered By: Gagan Shahid on 01-17-2022 Sodium [Moles/Vol] 137 mmol/L 136-146 [facility] Serum or plasma total carbon dioxide measurement (moles/volume)Ordered By: Gagan Shahid on 01-17-2022 CO2 [Moles/Vol] 21.5 mmol/L 22.0-30.0 [facility] Serum or plasma urea nitroge n measurement (mass/volume)Ordered By: Gagan Shahid on 01-17-2022 Urea nitrogen [Mass/Vol] 24 mg/dL 9 [facility] Activated partial thrombopla stin time (aPTT) in platelet poor plasma by coagulation aOrdered By: Gagan Shahid on 01-16-2022 aPTT Coag (PPP) [Time] 42.1 s 25.1-36.5 [facility] Basophils Auto (Bld) [#/Vol] Ordered By: Gagan Shahid on 01-16-2022 Basophils (Bld) [#/Vol] 0.0 10*3/uL 0.0-0.2 [facility] Basophils/100 WBC Auto (Bld) Ordered By: Gagan Shahid on 01-16-2022 Basophils/100 WBC (Bld) 0.5 % . [facility] Creatine kinase [Enzymatic a ctivity/volume] in Serum or PlasmaOrdered By: Gagan Shahid on 01-16-2022 CK [Catalytic activity/Vol] 92 U/L [facility] Eosinophils Auto (Bld) [#/Vo l]Ordered By: Gagan Shahid on 01-16-2022 Eosinophils (Bld) [#/Vol] 0.2 10*3/uL 0.0-0.45 [facility] Eosinophils/100 WBC Auto (Bl d)Ordered By: Gagan Shahid on 01-16-2022 Eosinophils/100 WBC (Bld) 2.4 % . [facility] Erythrocyte distribution wid th Auto (RBC) [Ratio]Ordered By: Gagan Shahid on 01-16-2022 Erythrocyte distribution width (RBC) [Ratio] 14.6 % 12.0-14.8 [facility] Hematocrit Auto (Bld) [Volum e fraction]Ordered By: Gagan Shahid on 01-16-2022 Hematocrit (Bld) [Volume fraction] 43.4 % 38.8-50.0 [facility] Hemoglobin [Mass/volume] in BloodOrdered By: Gagan Shahid on 01-16-2022 Hemoglobin (Bld) [Mass/Vol] 14.4 g/dL 13.0-17.0 [facility] - Chemistry and C hemistry - challengeOrdered By: Gagan Shahid on 01-16-2022 Magnesium [Mass/Vol] 1.9 mg/dL 1.6-2.6 [facility] - CoagulationOrde red By: Gagan Shahid on 01-16-2022 PT Coag (PPP) [Time] 15.7 s 9.0-12.9 [facility] - Hematology and Cell countsOrdered By: Gagan Shahid on 01-16-2022 Nucleated RBC/100 WBC (Bld) [Ratio] 0.1 % 0-0.5 [facility] Leukocytes [#/volume] in Blo od by Automated countOrdered By: Gagan Shahid on 01-16-2022 WBC (Bld) [#/Vol] 8.2 10*3/uL 4.5-11.0 [facility] Lymphocytes Auto (Bld) [#/Vo l]Ordered By: Gagan Shahid on 01-16-2022 Lymphocytes (Bld) [#/Vol] 1.6 10*3/uL 1.00-4.8 [facility] Lymphocytes/100 WBC Auto (Bl d)Ordered By: Gagan Shahid on 01-16-2022 Lymphocytes/100 WBC (Bld) 19.5 % . [facility] MCH Auto (RBC) [Entitic mass ]Ordered By: Gagan Shahid on 01-16-2022 MCH (RBC) [Entitic mass] 29.4 pg 27.5-35.2 [facility] MCHC Auto (RBC) [Mass/Vol]Or dered By: Gagan Shahid on 01-16-2022 MCHC (RBC) [Mass/Vol] 33.2 g/dL 32.5-35.6 [facility] MCV Auto (RBC) [Entitic vol] Ordered By: Gagan Shahid on 01-16-2022 MCV (RBC) [Entitic vol] 88.5 fL 83.5-101 [facility] Monocytes Auto (Bld) [#/Vol] Ordered By: Gagan Shahid on 01-16-2022 Monocytes (Bld) [#/Vol] 0.8 10*3/uL 0.0-0.8 [facility] Monocytes/100 WBC Auto (Bld) Ordered By: Gagan Shahid on 01-16-2022 Monocytes/100 WBC (Bld) 9.1 % . [facility] Neutrophils Auto (Bld) [#/Vo l]Ordered By: Gagan Shahid on 01-16-2022 Neutrophils (Bld) [#/Vol] 5.6 10*3/uL 1.8-7.7 [facility] Neutrophils/100 WBC Auto (Bl d)Ordered By: Gagan Shahid on 01-16-2022 Neutrophils/100 WBC (Bld) 68.5 % . [facility] No Panel InformationOrdered By: Gagan Shahid on 01-16-2022 Bedside Glucose Comment Glu2: cleaned meter [facility] Platelet mean volume Auto (B ld) [Entitic vol]Ordered By: Gagan Shahid on 01-16-2022 Platelet mean volume (Bld) [Entitic vol] 8.4 fL 6.6-10.1 [facility] Platelet poor plasma interna tional normalized ratio (INR) by coagulation assay (relatOrdered By: Gagan Shahid on 01-16-2022 INR Coag (PPP) [Relative time] 1.4 {INR} [facility] Comment on above: INR Therapeutic Rang [...] 01-16-2022 Platelets (Bld) [#/Vol] 178 10*3/uL 150-450 [facility] RBC Auto (Bld) [#/Vol]Ordere d By: Gagan Shahid on 01-16-2022 RBC (Bld) [#/Vol] 4.90 10*6/uL 3.90-5.60 [facility] Serum or plasma creatine kin ase MB (CKMB)/total creatine kinase (CK) ratio by calculaOrdered By: Gagan Shahid on 01-16-2022 CK.MB Calc [Catalytic fraction] 3.2 % 0.00-2.50 [facility] Serum or plasma creatine kin ase MB measurement (mass/volume)Ordered By: Gagan Shahid on 01-16-2022 CK.MB [Mass/Vol] 3.0 ng/mL 0.6-6.3 [facility] [place] Troponin I.cardiac [Mass/vol ume] in Serum or Plasma by High sensitivity methodOrdered By: Gagan Shahid on 01-16-2022 Troponin I.cardiac High sensitivity method [Mass/Vol] 525 pg/mL 0-20 [facility] Comment on above: Critical valueresult calledat 1844 on 01/16/22 BNPon 01-15-2022 Natriuretic peptide B (Bld) [Mass/Vol] 1012.0 pg/mL Critically high <=900.0 [facility] Comment on above: Performed By: #### B PRODUCER #### [facility] [address] [place] [address] Dr. Mirza Sadler CARDIAC PARUL ADMITon 022 CK [Catalytic activity/Vol] 93 U/L Normal 39-308 [facility] Comment on above: Performed By: #### C TANIA, CMADM #### [facility] [address] [address] [address] Mirza Sadler CK.MB [Mass/Vol] 1.67 ng/mL Normal <=3.60 [facility] Comment on above: Performed By: #### C TANIA, CMADM #### [facility] [address] [address] [address] Mirza Sadler HSTROP 17.1 pg/mL Normal 4.0-76.1 [facility] Comment on above: Result Comment: CUT- OFF POINTS HAVE BEEN ESTABLISHED BASED ON THE FOURTH UNIVERSAL DEFINITIONS OF MYOCARDIAL INFARCTION. THE UPPER REFERENCE LIMIT (URL) OF TROPONIN, DEFINED THE 99TH PERCENTILE OF cTnI DISTRIBUTION IN A REFERENCE POPULATION, HAS BEEN CONFIRMED THE DECISION THRESHOLD FOR [place] DIAGNOSIS. Performed By: #### C TANIA, CMADM #### [facility] [address] [address] [address] Mirza Sadler RACHEL 63 ng/mL Normal 16-96 [facility] Comment on above: Performed By: #### C TANIA, CMADM #### [facility] [address] [place] [address] Dr. Mirza Sadler CBC AUTO DIFFon 01-15-2022 BASO # 0.1 103/ul Normal 0.0-0.1 [facility] Comment on above: Performed By: #### E RUR #### [facility] [address] [place] [address] Dr. Mirza Sadler Basophils/100 WBC (Bld) 0.9 % Normal 0.2-2.0 [facility] Comment on above: Performed By: #### E RUR #### [facility] [address] [place] [address] Dr. Mirza Sadler EO # 0.3 103/ul Normal 0.0-0.7 [facility] Comment on above: Performed By: #### E RUR #### [facility] [address] [place] [address] Dr. Mirza Sadler Eosinophils/100 WBC (Bld) 3.1 % Normal 0.9-7.0 [facility] Comment on above: Performed By: #### E RUR #### [facility] [address] [place] [address] Dr. Mirza Sadler Erythrocyte distribution width (RBC) [Ratio] 14.2 % Normal 11.0-15.0 [facility] Comment on above: Performed By: #### E RUR #### [facility] [address] [place] [address] Dr. Mirza Sadler Hematocrit (Bld) [Volume fraction] 44.4 % Normal 42.0-54.0 [facility] Comment on above: Performed By: #### E RUR #### [facility] [address] [place] [address] Dr. Mirza Sadler Hemoglobin (Bld) [Mass/Vol] 14.4 g/dL Normal 14.0-18.0 [facility] Comment on above: Performed By: #### E RUR #### [facility] [address] [place] [address] Dr. Mirza Sadler IG # 0.03 10e3/ul Normal 0.00-0.03 [facility] Comment on above: Performed By: #### E RUR #### [facility] [address] [place] [address] Dr. Mirza Sadler IG % 0.3 % Normal 0.0-0.5 [facility] Comment on above: Performed By: #### E RUR #### [facility] [address] [place] [address] Dr. Mirza Sadler LYMPH # 1.6 103/ul Normal 1.2-3.8 [facility] Comment on above: Performed By: #### E RUR #### [facility] [address] [place] [address] Dr. Mirza Sadler Lymphocytes/100 WBC (Bld) 16.8 % Critically low 20.5-60.0 [facility] Comment on above: Performed By: #### E RUR #### [facility] [address] [place] [address] Dr. Mirza Sadler MANUAL DIFF REQ NO Normal [facility] Comment on above: Performed By: #### E RUR #### [facility] [address] [place] [address] Dr. Mirza Sadler MCH (RBC) [Entitic mass] 29.4 pg Normal 25.9-34.0 [facility] Comment on above: Performed By: #### E RUR #### [facility] [address] [place] [address] Dr. Mirza Sadler MCHC (RBC) [Mass/Vol] 32.4 g/dL Normal 29.9-35.2 [facility] Comment on above: Performed By: #### E RUR #### [facility] [address] [place] [address] Dr. Mirza Sadler MCV (RBC) [Entitic vol] 90.6 fL Normal 80.0-94.0 [facility] Comment on above: Performed By: #### E RUR #### [facility] [address] [place] [address] Dr. Mirza Sadler MONO # 0.5 103/ul Normal 0.3-0.8 [facility] Comment on above: Performed By: #### E RUR #### [facility] [address] [address] [address] Mirza Sadler Monocytes/100 WBC (Bld) 5.9 % Normal 1.7-12.0 [facility] Comment on above: Performed By: #### E RUR #### [facility] [address] [address] [address] Mirza Sadler NEUT # 6.7 103/ul Critically high 1.4-6.5 [facility] Comment on above: Performed By: #### E RUR #### [facility] [address] [place] [address] Dr. Mirza Sadler Neutrophils/100 WBC (Bld) 73.0 % Normal 43.0-75.0 [facility] Comment on above: Performed By: #### E RUR #### [facility] [address] [place] [address] Dr. Mirza Sadler Platelet mean volume (Bld) [Entitic vol] 10.0 fL Normal 9.5-13.5 [facility] Comment on above: Performed By: #### E RUR #### [facility] [address] [place] [address] Dr. Mirza Sadler PLT 190 103/ul Normal 150-450 [facility] Comment on above: Performed By: #### E RUR #### [facility] [address] [place] [address] Dr. Mirza Sadler RBC 4.90 106/ul Normal 4.70-6.10 [facility] Comment on above: Performed By: #### E RUR #### [facility] [address] [place] [address] Dr. Mirza Sadler WBC 9.2 103/ul Normal 4.0-11.0 [facility] Comment on above: Performed By: #### E RUR #### [facility] [address] [place] [address] CHEST WO CONon [...] by: HIGINIO FLANAGAN Date: 2022-01-15 08:19 Normal [facility] CULTURE BLOODon 01-15-2022 Microscopic examination of blood, culture Culture Observations: NO GROWTH AT 5 DAYS. Normal [facility] Comment on above: Performed By: #### H STROPN #### [facility] [address] [place] [address] Dr. Mirza Sadler Microscopic examination of blood, culture Culture Observations: NO GROWTH AT 5 DAYS. Normal [facility] Comment on above: Performed By: #### B LDCX1 #### [facility] [address] [place] [address] Dr. Mirza Sadler [facility]30 SARS-CoV-2 (COVID-19) RNA RAMO+probe Ql (Unsp spec) Not detected Normal NOT DETECTED [facility] Comment on above: Result Comment: When [...] for this test is supported by the Dog Trainer of Health and Human Service's declaration that [...] longer be used). Performed By: #### B PRODUCER #### [facility] [address] [place] [address] Dr. Mirza Sadler ER URINE PROFILEon 2 Bilirubin Ql (U) Negative Normal NEGATIVE [facility] Comment on above: Performed By: #### C DOM MARINDM #### [facility] [address] [place] [address] Dr. Mirza Sadler Clarity (U) CLEAR Normal CLEAR [facility] Comment on above: Performed By: #### C TANIA CMADM #### [facility] [address] [place] [address] Dr. Mirza Sadler Color (U) LT. YELLOW Normal YELLOW [facility] Comment on above: Performed By: #### C TANIA CMADM #### [facility] [address] [place] [address] Dr. Mirza GARCIAD A micrscopic examina tion will be performed if indicated. Normal [facility] Comment on above: Performed By: #### C TANIA, CMADM #### [facility] [address] [place] [address] Dr. Mirza Sadler Glucose Ql (U) >1000 Abnormal NEGATIVE [facility] Comment on above: Performed By: #### C MP, CMADM #### [facility] [address] [address] [address] Mirza Sadler Hemoglobin Ql (U) Negative Normal NEGATIVE [facility] Comment on above: Performed By: #### C MP, CMADM #### [facility] [address] [address] [address] Mirza Sadler Ketones Ql (U) TRACE Abnormal NEGATIVE [facility] Comment on above: Performed By: #### C MP, CMADM #### [facility] [address] [place] [address] Dr. Mirza Sadler LEUKOCYTES Negative Normal NEGATIVE [facility] Comment on above: Performed By: #### C MP, CMADM #### [facility] [address] [place] [address] Dr. Mirza Sadler Nitrite Ql (U) Negative Normal NEGATIVE [facility] Comment on above: Performed By: #### C MP, CMADM #### [facility] [address] [place] [address] Dr. Mirza Sadler pH (U) 5.5 [pH] Normal 5-9 [facility] Comment on above: Performed By: #### C MP, CMADM #### [facility] [address] [place] [address] Dr. Mirza Sadler SPEC GRAVITY 1.020 Normal 1.005-<=1. 025 [facility] Comment on above: Performed By: #### C MP, CMADM #### [facility] [address] [place] [address] Dr. Mirza Sadler UA PROTEIN TRACE Normal NEGATIVE/ TRACE [facility] Comment on above: Performed By: #### C MP, CMADM #### [facility] [address] [place] [address] Dr. Mirza Sadler UR MICRO IND NOT INDICATED Normal [facility] Comment on above: Performed By: #### C MP, CMADM #### [facility] [address] [place] [address] Dr. Mirza Sadler Urobilinogen Qn (U) 0.2 {Luisito'U}/dL Normal 0.2 - 1. 0 [facility] Comment on above: Performed By: #### C MP, CMADM #### [facility] [address] [place] [address] Dr. Mirza Sadler LACTATE/LACTIC ACIDon 2021 Lactate [Moles/Vol] 0.8 mmol/L Normal 0.4-1.9 [facility] Comment on above: Performed By: #### P T, PTT #### [facility] [address] [place] [address] Dr. Mirza Sadler PROF 14(COMP METB)on 022 Albumin [Mass/Vol] 4.4 g/dL Normal 3.4-5.0 [facility] Comment on above: Performed By: #### C TANIA, CMADM #### [facility] [address] [place] [address] Dr. Mirza Sadler Albumin/Globulin [Mass ratio] 1.3 {ratio} Normal [facility] Comment on above: Performed By: #### C TANIA, CMADM #### [facility] [address] [place] [address] Dr. Mirza Sadler ALP [Catalytic activity/Vol] 155 U/L Critically high 46-116 [facility] Comment on above: Performed By: #### C MP, CMADM #### [facility] [address] [place] [address] Dr. Mirza Sadler ALT [Catalytic activity/Vol] 27 U/L Normal 16-63 [facility] Comment on above: Performed By: #### C MP, CMADM #### [facility] [address] [address] [address] Mirza Sadler Anion gap [Moles/Vol] 14.9 mmol/L Normal [facility] Comment on above: Performed By: #### C MP, CMADM #### [facility] [address] [place] [address] Dr. Mirza Sadler AST [Catalytic activity/Vol] 22 U/L Normal 15-37 [facility] Comment on above: Performed By: #### C MP, CMADM #### [facility] [address] [address] [address] Mirza Sadler Bilirubin [Mass/Vol] 0.8 mg/dL Normal 0.2-1.0 [facility] Comment on above: Performed By: #### C MP, CMADM #### [facility] [address] [place] [address] Dr. Mirza Sadler Calcium [Mass/Vol] 8.8 mg/dL Normal 8.5-10.1 [facility] Comment on above: Performed By: #### C MP, CMADM #### [facility] [address] [place] [address] Dr. Mirza Sadler Chloride [Moles/Vol] 106 mmol/L Normal 98-107 [facility] Comment on above: Performed By: #### C MP, CMADM #### [facility] [address] [place] [address] Dr. Mirza Sadler CO2 [Moles/Vol] 23.9 mmol/L Normal 21.0-32.0 [facility] Comment on above: Performed By: #### C MP, CMADM #### [facility] [address] [place] [address] Dr. Mirza Sadler Creatinine [Mass/Vol] 1.51 mg/dL Critically high 0.70-1.30 [facility] Comment on above: Performed By: #### C MP, CMADM #### [facility] [address] [place] [address] Dr. Mirza Sadler EGFR-AF IRANIAN 56 mL/min/1.73m2 Critically low >=60 [facility] Comment on above: Performed By: #### C MP, CMADM #### [facility] [address] [place] [address] Dr. Mirza Sadler EGFR-NON AF IRANIAN 46 mL/min/1.73m2 Critically low >=60 [facility] Comment on above: Performed By: #### C MP, CMADM #### [facility] [address] [place] [address] Dr. Mirza Sadler Globulin (S) [Mass/Vol] 3.4 g/dL Normal [facility] Comment on above: Performed By: #### C TEGAN MARIN #### [facility] [address] [place] [address] Dr. Mirza Sadler Glucose [Mass/Vol] 189 mg/dL Critically high 74-106 [facility] Comment on above: Performed By: #### C TEGAN MARIN #### [facility] [address] [place] [address] Dr. Mirza Sadler Potassium [Moles/Vol] 3.8 mmol/L Normal 3.5-5.1 [facility] Comment on above: Performed By: #### C TEGAN MARIN #### [facility] [address] [place] [address] Dr. Mirza Sadler Protein [Mass/Vol] 7.8 g/dL Normal 6.4-8.2 [facility] Comment on above: Performed By: #### C TEGAN MARIN #### [facility] [address] [place] [address] Dr. Mirza Sadler Sodium [Moles/Vol] 141 mmol/L Normal 136-145 [facility] Comment on above: Performed By: #### C TEGAN MARIN #### [facility] [address] [place] [address] Dr. Mirza Sadler Urea nitrogen [Mass/Vol] 22.0 mg/dL Critically high 7.0-18.0 [facility] Comment on above: Performed By: #### C TEGAN MARIN #### [facility] [address] [place] [address] Dr. Mirza Sadler Urea nitrogen/Creatinine [Mass ratio] 14.6 mg/mg Normal [facility] Comment on above: Performed By: #### C TEGAN MARIN #### [facility] [address] [place] [address] Dr. Mirza Sadler PROTIMEon 01-15-2022 INR Coag (PPP) [Relative time] 1.10 {INR} Normal [facility] Comment on above: Performed By: #### E RUR #### [facility] [address] [address] [address] Mirza Sadler INR GUIDELINES SEE BELOW Normal [facility] Comment on above: Result Comment: RIVKA RED INR: 2.0 - 3.0 CONDITIONS NOT LISTED BELOW 2.5 - 3.5 FOR PROSTHETIC HEART VALVE REPLACEMENT 2.5 - 3.5 RECURRENT THROMBOSIS Performed By: #### E RUR #### [facility] [address] [address] [address] Mirza Sadler PT Coag (PPP) [Time] 11.8 s Critically high 9.0-11.6 [facility] Comment on above: Performed By: #### E RUR #### [facility] [address] [place] [address] Dr. Mirza Sadler PTTon 01-15-2022 aPTT Coag (Bld) [Time] 29.0 s Normal 22.3-36.2 [facility] Comment on above: Performed By: #### E RUR #### [facility] [address] [place] [address] Dr. Mirza Sadler TROPONIN, HIGH SENSITIVITYon 01-15-2022 HSTROP 1786.2 pg/mL Critically high 4.0-76.1 [facility] Comment on above: Result Comment: CUT- OFF POINTS HAVE BEEN ESTABLISHED BASED ON THE FOURTH UNIVERSAL DEFINITIONS OF MYOCARDIAL INFARCTION. THE UPPER REFERENCE LIMIT (URL) OF TROPONIN, DEFINED THE 99TH PERCENTILE OF cTnI DISTRIBUTION IN A REFERENCE POPULATION, HAS BEEN CONFIRMED THE DECISION THRESHOLD FOR [place] DIAGNOSIS. Performed By: #### H STROPN #### [facility] [address] [place] [address] Dr. Mirza Sadler HSTROP 669.3 pg/mL Critically high 4.0-76.1 [facility] Comment on above: Result Comment: CUT- OFF POINTS HAVE BEEN ESTABLISHED BASED ON THE FOURTH UNIVERSAL DEFINITIONS OF MYOCARDIAL INFARCTION. THE UPPER REFERENCE LIMIT (URL) OF TROPONIN, DEFINED THE 99TH PERCENTILE OF cTnI DISTRIBUTION IN A REFERENCE POPULATION, HAS BEEN CONFIRMED THE DECISION THRESHOLD FOR [place] DIAGNOSIS. Performed By: #### H STROPN #### [facility] [address] [place] [address] Dr. Mirza Sadler XR CHEST 1 Von 10-17-2022 XR CHEST 1 V EXAM: XR CHEST [...] WAYNE CASEY Date: 2022-01-15 06:42 Normal [facility] A1C HEMOGLOBINon 12-18-2021 HbA1c (Bld) [Mass fraction] 6.2 % [employer] Other Glucose - FINGER STICKon Glucose [Mass/Vol] 120 mg/dL [employer] Other HbA1c (Bld) [Mass fraction]o n 12-18-2021 A1C HEMOGLOBIN [employer] Other XR CHEST 2 Von 12-08-2021 XR [...] HIGINIO FLANAGAN Date: 2021-12-08 16:07 Normal [facility] PTH INTACTon 12-01-2021 PTH, Intact 15 pg/mL Normal 15-65 [facility] Comment on above: Performed By: #### C MP, CMADM #### [facility] [address] [address] [address] Mirza Sadler VIT D 25-OH [facility]on 2021 Vitamin D, 25-Hydroxy 41.2 ng/mL Normal 30.0-100.0 [facility] Comment on above: Result Comment: Cielo min D deficiency has been defined by the [place] [employer] and an Endocrine Society practice guideline as a level of serum 25-OH vitamin D less than 20 ng/mL (1,2). The Endocrine Society went on to further define vitamin D insufficiency as a level between 21 and 29 ng/mL (2). 1. IOM ([place] [employer]). 2010. Dietary reference intakes for calcium and D. [place]: The National Academies Press. 2. Noemy MF, Sonam [place], Jake HERMOSILLO, et al. Evaluation, treatment, and prevention of vitamin D deficiency: an Endocrine Society clinical practice guideline. JCEM. 2010; 96(7):1911-30. Performed By: #### P T, PTT #### [facility] [address] [place] [address] Dr. Mirza Sadler HEMOGRAM AND PLATELon 2021 Hematocrit (Bld) [Volume fraction] 39.9 % Critically low 42.0-54.0 [facility] Comment on above: Performed By: #### P T, PTT #### [facility] [address] [place] [address] Dr. Mirza Sadler Hemoglobin (Bld) [Mass/Vol] 13.1 g/dL Critically low 14.0-18.0 [facility] Comment on above: Performed By: #### P T, PTT #### [facility] [address] [place] [address] Dr. Mirza Sadler MCH (RBC) [Entitic mass] 29.5 pg Normal 25.9-34.0 [facility] Comment on above: Performed By: #### P T, PTT #### [facility] [address] [place] [address] Dr. Mirza Sadler MCHC (RBC) [Mass/Vol] 32.8 g/dL Normal 29.9-35.2 [facility] Comment on above: Performed By: #### P T, PTT #### [facility] [address] [place] [address] Dr. Mirza Sadler MCV (RBC) [Entitic vol] 89.9 fL Normal 80.0-94.0 [facility] Comment on above: Performed By: #### P T, PTT #### [facility] [address] [place] [address] Dr. Mirza Sadler PLT 182 103/ul Normal 150-450 [facility] Comment on above: Performed By: #### P T, PTT #### [facility] [address] [place] [address] Dr. Mirza Sadler RBC 4.44 106/ul Critically low 4.70-6.10 [facility] Comment on above: Performed By: #### P T, PTT #### [facility] [address] [place] [address] Dr. Mirza Sadler WBC 6.9 103/ul Normal 4.0-11.0 [facility] Comment on above: Performed By: #### P T, PTT #### [facility] [facility] [address] [place] [address] Dr. Mirza Sadler MAGNESIUMon 11-30-2021 Magnesium [Mass/Vol] 1.8 mg/dL Normal 1.8-2.4 [facility] Comment on above: Performed By: #### P T, PTT #### [facility] [address] [place] [address] Dr. Mirza Sadler RENAL FUNCTION PANELon 11-30 Albumin [Mass/Vol] 3.9 g/dL Normal 3.4-5.0 [facility] Comment on above: Performed By: #### P T, PTT #### [facility] [address] [place] [address] Dr. Mirza Sadler Calcium [Mass/Vol] 9.0 mg/dL Normal 8.5-10.1 [facility] Comment on above: Performed By: #### P T, PTT #### [facility] [address] [place] [address] Dr. Mirza Sadler Chloride [Moles/Vol] 107 mmol/L Normal 98-107 [facility] Comment on above: Performed By: #### P T, PTT #### [facility] [address] [address] [address] Mirza Sadler CO2 [Moles/Vol] 26.2 mmol/L Normal 21.0-32.0 [facility] Comment on above: Performed By: #### P T, PTT #### [facility] [address] [place] [address] Dr. Mirza Sadler Creatinine [Mass/Vol] 1.55 mg/dL Critically high 0.70-1.30 [facility] Comment on above: Performed By: #### P T, PTT #### [facility] [address] [place] [address] Dr. Mirza Sadler EGFR-AF IRANIAN 54 mL/min/1.73m2 Critically low >=60 [facility] Comment on above: Performed By: #### P T, PTT #### [facility] [address] [place] [address] Dr. Mirza Sadler EGFR-NON AF IRANIAN 45 mL/min/1.73m2 Critically low >=60 [facility] Comment on above: Performed By: #### P T, PTT #### [facility] [address] [place] [address] Dr. Mirza Sadler Glucose [Mass/Vol] 166 mg/dL Critically high 74-106 [facility] Comment on above: Performed By: #### P T, PTT #### [facility] [address] [place] [address] Dr. Mirza Sadler Phosphate [Mass/Vol] 3.7 mg/dL Normal 2.6-4.7 [facility] Comment on above: Performed By: #### P T, PTT #### [facility] [address] [place] [address] Dr. Mirza Sadler Potassium [Moles/Vol] 4.2 mmol/L Normal 3.5-5.1 [facility] Comment on above: Performed By: #### P T, PTT #### [facility] [address] [place] [address] Dr. Mirza Sadler Sodium [Moles/Vol] 142 mmol/L Normal 136-145 [facility] Comment on above: Performed By: #### P T, PTT #### [facility] [address] [place] [address] Dr. Mirza Sadler Urea nitrogen [Mass/Vol] 16.0 mg/dL Normal 7.0-18.0 [facility] Comment on above: Performed By: #### P T, PTT #### [facility] [address] [place] [address] Dr. Mirza Sadler UA RANDOM W/MICROSCOPICon BACTERIA NONE SEEN Normal NONE SEEN [facility] Comment on above: Performed By: #### B [id number] #### [facility] [address] [place] [address] Dr. Mirza Sadler Bilirubin Ql (U) Negative Normal NEGATIVE [facility] Comment on above: Performed By: #### B [id number] #### [facility] [address] [place] [address] Dr. Mirza Sadler CAST NONE SEEN Normal NONE SEEN [facility] Comment on above: Performed By: #### B [id number] #### [facility] [address] [place] [address] Dr. Mirza Sadler Clarity (U) CLEAR Normal CLEAR [facility] Comment on above: Performed By: #### B [id number] #### [facility] [address] [place] [address] Dr. Mirza Sadler Color (U) LT. YELLOW Normal YELLOW [facility] Comment on above: Performed By: #### B [id number] #### [facility] [address] [place] [address] Dr. Mirza Sadler Crystals LM Nom (Urine sed) NONE SEEN Normal NONE SEEN [facility] Comment on above: Performed By: #### B [id number] #### [facility] [address] [place] [address] Dr. Mirza Sadler Epithelial cells LM Ql (Urine sed) RARE Normal NONE SEEN /RARE [facility] Comment on above: Performed By: #### B [id number] #### [facility] [address] [address] [address] Mirza Sadler Glucose Ql (U) >1000 Abnormal NEGATIVE [facility] Comment on above: Performed By: #### B [id number] #### [facility] [address] [place] [address] Dr. Mirza Sadler Hemoglobin Ql (U) Negative Normal NEGATIVE [facility] Comment on above: Performed By: #### B [id number] #### [facility] [address] [place] [address] Dr. Mirza Sadler Ketones Ql (U) Negative Normal NEGATIVE [facility] Comment on above: Performed By: #### B [id number] #### [facility] [address] [place] [address] Dr. Mirza Sadler LEUKOCYTES Negative Normal NEGATIVE [facility] Comment on above: Performed By: #### B [id number] #### [facility] [address] [place] [address] Dr. Mirza Sadler MUCOUS NONE SEEN Normal NONE SEEN [facility] Comment on above: Performed By: #### B [id number] #### [facility] [address] [place] [address] Dr. Mirza Sadler Nitrite Ql (U) Negative Normal NEGATIVE [facility] Comment on above: Performed By: #### B [id number] #### [facility] [address] [place] [address] Dr. Mirza Sadler pH (U) 5.5 [pH] Normal 5-9 [facility] Comment on above: Performed By: #### B [id number] #### [facility] [address] [place] [address] Dr. Mirza Sadler RBC NONE SEEN Abnormal 0-2 [facility] Comment on above: Performed By: #### B [id number] #### [facility] [address] [place] [address] Dr. Mirza Sadler SPEC GRAVITY 1.015 Normal 1.005-<=1. 025 [facility] Comment on above: Performed By: #### B [id number] #### [facility] [address] [place] [address] Dr. Mirza Sadler UA PROTEIN Negative Normal NEGATIVE/ TRACE [facility] Comment on above: Performed By: #### B [id number] #### [facility] [address] [place] [address] Dr. Mirza Sadler Urobilinogen Qn (U) 0.2 {Luisito'U}/dL Normal 0.2 - 1. 0 [facility] Comment on above: Performed By: #### B [id number] #### [facility] [address] [place] [address] Dr. Mirza Sadler WBC NONE SEEN Normal NONE SEEN [facility] Comment on above: Performed By: #### B [id number] #### [facility] [address] [place] [address] Dr. Mirza Sadler URINE T PROTEIN CREAT RATIOo n 11-30-2021 Protein (U) [Mass/Vol] 22.4 mg/dL Critically high <=12.0 [facility] Comment on above: Performed By: #### U RTPCR #### [facility] [address] [place] [address] Dr. Mirza Sadler UR PROT CREAT RAT 0.[address] [facility] Comment on above: Performed By: #### U RTPCR #### [facility] [address] [place] [address] Dr. Mizra Sadler URINE CREAT 73.05 mg/dL Normal 20.00-300. 00 [facility] Comment on above: Performed By: #### U RTPCR #### [facility] [address] [place] [address] Dr. Mirza Sadler NM HEPATOBILIARY SCAN W [...] by: HIGINIO FLANAGAN Date: 2021-11-24 11:55 Normal [facility] BNPon 10-27-2021 Natriuretic peptide B (Bld) [Mass/Vol] 574.0 pg/mL Normal <=900.0 [facility] Comment on above: Performed By: #### P T, PTT #### [facility] [address] [place] [address] Dr. Mirza Sadler CARDIAC PARUL ADMITon 022 CK [Catalytic activity/Vol] 70 U/L Normal 39-308 [facility] Comment on above: Performed By: #### P T, PTT #### [facility] [address] [place] [address] Dr. Mirza Sadler CK.MB [Mass/Vol] 1.10 ng/mL Normal <=3.60 [facility] Comment on above: Performed By: #### P T, PTT #### [facility] [address] [place] [address] Dr. Mirza Sadler HSTROP 22.3 pg/mL Normal 4.0-76.1 [facility] Comment on above: Result Comment: CUT- OFF POINTS HAVE BEEN ESTABLISHED BASED ON THE FOURTH UNIVERSAL DEFINITIONS OF MYOCARDIAL INFARCTION. THE UPPER REFERENCE LIMIT (URL) OF TROPONIN, DEFINED THE 99TH PERCENTILE OF cTnI DISTRIBUTION IN A REFERENCE POPULATION, HAS BEEN CONFIRMED THE DECISION THRESHOLD FOR [place] DIAGNOSIS. Performed By: #### P T, PTT #### [facility] [address] [place] [address] Dr. Mirza Sadler RACHEL 81 ng/mL Normal 16-96 [facility] Comment on above: Performed By: #### P T, PTT #### [facility] [address] [place] [address] Dr. Mirza Sadler CBC AUTO DIFFon 10-27-2021 BASO # 0.1 103/ul Normal 0.0-0.1 [facility] Comment on above: Performed By: #### E RUR #### [facility] [address] [place] [address] Dr. Mirza Sadler Basophils/100 WBC (Bld) 0.4 % Normal 0.2-2.0 [facility] Comment on above: Performed By: #### E RUR #### [facility] [address] [place] [address] Dr. Mirza Sadler EO # 0.1 103/ul Normal 0.0-0.7 [facility] Comment on above: Performed By: #### E RUR #### [facility] [address] [place] [address] Dr. Mirza Sadler Eosinophils/100 WBC (Bld) 0.4 % Critically low 0.9-7.0 [facility] Comment on above: Performed By: #### E RUR #### [facility] [address] [place] [address] Dr. Mirza Sadler Erythrocyte distribution width (RBC) [Ratio] 14.1 % Normal 11.0-15.0 [facility] Comment on above: Performed By: #### E RUR #### [facility] [address] [place] [address] Dr. Mirza Sadler Hematocrit (Bld) [Volume fraction] 41.0 % Critically low 42.0-54.0 [facility] Comment on above: Performed By: #### E RUR #### [facility] [address] [place] [address] Dr. Mirza Sadler Hemoglobin (Bld) [Mass/Vol] 14.1 g/dL Normal 14.0-18.0 [facility] Comment on above: Performed By: #### E RUR #### [facility] [address] [place] [address] Dr. Mirza Sadler IG # 0.05 10e3/ul Critically high 0.00-0.03 [facility] Comment on above: Performed By: #### E RUR #### [facility] [address] [place] [address] Dr. Mirza Sadler IG % 0.4 % Normal 0.0-0.5 [facility] Comment on above: Performed By: #### E RUR #### [facility] [address] [place] [address] Dr. Mirza Sadler LYMPH # 0.9 103/ul Critically low 1.2-3.8 [facility] Comment on above: Performed By: #### E RUR #### [facility] [address] [place] [address] Dr. Mirza Sadler Lymphocytes/100 WBC (Bld) 6.6 % Critically low 20.5-60.0 [facility] Comment on above: Performed By: #### E RUR #### [facility] [address] [place] [address] Dr. Mirza Sadler MANUAL DIFF REQ NO Normal [facility] Comment on above: Performed By: #### E RUR #### [facility] [address] [place] [address] Dr. Mirza Sadler MCH (RBC) [Entitic mass] 29.7 pg Normal 25.9-34.0 [facility] Comment on above: Performed By: #### E RUR #### [facility] [address] [place] [address] Dr. Mirza Sadler MCHC (RBC) [Mass/Vol] 34.4 g/dL Normal 29.9-35.2 [facility] Comment on above: Performed By: #### E RUR #### [facility] [address] [place] [address] Dr. Mirza Sadler MCV (RBC) [Entitic vol] 86.3 fL Normal 80.0-94.0 [facility] Comment on above: Performed By: #### E RUR #### [facility] [address] [place] [address] Dr. Mirza Sadler MONO # 0.4 103/ul Normal 0.3-0.8 [facility] Comment on above: Performed By: #### E RUR #### [facility] [address] [place] [address] Dr. Mirza Sadler Monocytes/100 WBC (Bld) 2.6 % Normal 1.7-12.0 [facility] Comment on above: Performed By: #### E RUR #### [facility] [address] [place] [address] Dr. Mirza Sadler NEUT # 12.2 103/ul Critically high 1.4-6.5 [facility] Comment on above: Performed By: #### E RUR #### [facility] [address] [place] [address] Dr. Mirza Sadler Neutrophils/100 WBC (Bld) 89.6 % Critically high 43.0-75.0 [facility] Comment on above: Performed By: #### E RUR #### [facility] [address] [place] [address] Dr. Mirza Sadler Platelet mean volume (Bld) [Entitic vol] 9.7 fL Normal 9.5-13.5 [facility] Comment on above: Performed By: #### E RUR #### [facility] [address] [place] [address] Dr. Mirza Sadler PLT 183 103/ul Normal 150-450 [facility] Comment on above: Performed By: #### E RUR #### [facility] [address] [place] [address] Dr. Mirza Sadler RBC 4.75 106/ul Normal 4.70-6.10 [facility] Comment on above: Performed By: #### E RUR #### [facility] [address] [place] [address] Dr. Mirza Sadler WBC 13.7 103/ul Critically high 4.0-11.0 [facility] Comment on above: Performed By: #### E RUR #### [facility] [address] [place] [address] Dr. Mirza Sadler CULTURE BLOODon 10-27-2021 Microscopic examination of blood, culture Culture Observations: NO GROWTH AT 5 DAYS. Normal [facility] Comment on above: Performed By: #### B [id number] #### [facility] [address] [place] [address] Dr. Mirza Sadler Performed By: #### H STROPN #### [facility] [address] [place] [address] Dr. Mirza Sadler Covid-19 PCR ([facility])on 09-30 SARS-CoV-2 (COVID-19) RNA RAMO+probe Ql (Unsp spec) Not detected Normal NOT DETECTED [facility] Comment on above: Result Comment: When [...] for this test is supported by the [place] of Health and Human Service's declaration that [...] Performed By: #### P T, PTT #### [facility] [address] [place] [address] Dr. Mirza Sadler ER URINE PROFILEon 2 Bilirubin Ql (U) Negative Normal NEGATIVE [facility] Comment on above: Performed By: #### H STROPN #### [facility] [address] [place] [address] Dr. Mirza Sadler Clarity (U) CLEAR Normal CLEAR [facility] Comment on above: Performed By: #### H STROPN #### [facility] [address] [place] [address] Dr. Mirza Sadler Color (U) YELLOW Normal YELLOW [facility] Comment on above: Performed By: #### H STROPN #### [facility] [address] [place] [address] Dr. Mirza Sadler ERUAHD A micrscopic examina tion will be performed if indicated. Normal [facility] Comment on above: Performed By: #### H STROPN #### [facility] [address] [address] [address] Mirza Sadler Glucose Ql (U) >1000 Abnormal NEGATIVE [facility] Comment on above: Performed By: #### H STROPN #### [facility] [address] [place] [address] Dr. Mirza Sadler Hemoglobin Ql (U) Negative Normal NEGATIVE [facility] Comment on above: Performed By: #### H STROPN #### [facility] [address] [address] [address] Mirza Sadler Ketones Ql (U) TRACE Abnormal NEGATIVE [facility] Comment on above: Performed By: #### H STROPN #### [facility] [address] [place] [address] Dr. Mirza Sadler LEUKOCYTES Negative Normal NEGATIVE [facility] Comment on above: Performed By: #### H STROPN #### [facility] [address] [address] [address] Mirza Sadler Nitrite Ql (U) Negative Normal NEGATIVE [facility] Comment on above: Performed By: #### H STROPN #### [facility] [address] [place] [address] Dr. Mirza Sadler pH (U) 5.5 [pH] Normal 5-9 [facility] Comment on above: Performed By: #### H STROPN #### [facility] [address] [place] [address] Dr. Mirza Sadler SPEC GRAVITY 1.010 Normal 1.005-<=1. 025 [facility] Comment on above: Performed By: #### H STROPN #### [facility] [address] [address] [address] Mirza Sadler UA PROTEIN Negative Normal NEGATIVE/ TRACE [facility] Comment on above: Performed By: #### H STROPN #### [facility] [address] [place] [address] Dr. Mirza Sadler UR MICRO IND NOT INDICATED Normal [facility] Comment on above: Performed By: #### H STROPN #### [facility] [address] [place] [address] Dr. Mirza Sadler Urobilinogen Qn (U) 0.2 {Luisito'U}/dL Normal 0.2 - 1. 0 [facility] Comment on above: Performed By: #### H STROPN #### [facility] [address] [place] [address] Dr. Mirza Sadler INFLUENZA A AND B AGon 10-27 INFLUANEGH SEE BELOW Normal [facility] Comment on above: Result Comment: Nega tive for Flu A protein angiten. Infection due to Flu A cannot be ruled out. Flu A angiten in the sample may be below the detection limit of the test. Performed By: #### B PRODUCER #### [facility] [address] [place] [address] Dr. Mirza Sadler INFLUBNEG SEE BELOW Normal [facility] Comment on above: Result Comment: Nega tive for Flu B protein antigen. Infection due to Flu B cannot be ruled out. Flu B antigen in the sample may be below the detection limit of the test. Performed By: #### B PRODUCER #### [facility] [address] [place] [address] Dr. Mirza Sadler INFLUENZA A AG Negative Normal NEGATIVE SEE COMMENT [facility] Comment on above: Performed By: #### B PRODUCER #### [facility] [address] [place] [address] Dr. Mirza Sadler INFLUENZA B AG Negative Normal NEGATIVE SEE COMMENT [facility] Comment on above: Performed By: #### B PRODUCER #### [facility] [address] [place] [address] Dr. Mirza Sadler INTERNAL CONTROLS Within Normal Limits Normal Wi thin Normal Limits [facility] Comment on above: Performed By: #### B PRODUCER #### [facility] [address] [place] [address] Dr. Mirza Sadler LACTATE/LACTIC ACIDon 2021 Lactate [Moles/Vol] 1.8 mmol/L Normal 0.4-1.9 [facility] Comment on above: Performed By: #### C MP, CMADM #### [facility] [address] [address] [address] Mirza Sadler LIPASEon 10-27-2021 Lipase [Catalytic activity/Vol] 87.0 U/L Normal 73.0-393.0 [facility] Comment on above: Performed By: #### P T, PTT #### [facility] [address] [place] [address] Dr. Mirza Sadler PH VENOUS BLOODon 10-27-2021 PCO2 VENOUS 37.6 mmHg Critically low 40.0-52.0 [facility] Comment on above: Performed By: #### P T, PTT #### [facility] [address] [place] [address] Dr. Mirza Sadler pH VENOUS 7.422 Normal 7.330-7.43 0 [facility] Comment on above: Performed By: #### P T, PTT #### [facility] [address] [place] [address] Dr. Mirza Sadler PROF 14(COMP METB)on 022 Albumin [Mass/Vol] 4.2 g/dL Normal 3.4-5.0 [facility] Comment on above: Performed By: #### P T, PTT #### [facility] [address] [place] [address] Dr. Mirza Sadler Albumin/Globulin [Mass ratio] 1.3 {ratio} Normal [facility] Comment on above: Performed By: #### P T, PTT #### [facility] [address] [place] [address] Dr. Mirza Sadler ALP [Catalytic activity/Vol] 121 U/L Critically high 46-116 [facility] [facility] Comment on above: Performed By: #### P T, PTT #### [facility] [address] [place] [address] Dr. Mirza Sadler ALT [Catalytic activity/Vol] 22 U/L Normal 16-63 [facility] Comment on above: Performed By: #### P T, PTT #### [facility] [address] [place] [address] Dr. Mirza Sadler Anion gap [Moles/Vol] 16.0 mmol/L Normal Th [facility] Comment on above: Performed By: #### P T, PTT #### [facility] [address] [address] [address] Mirza Sadler AST [Catalytic activity/Vol] 18 U/L Normal 15-37 [facility] Comment on above: Performed By: #### P T, PTT #### [facility] [address] [address] [address] Mirza Sadler Bilirubin [Mass/Vol] 1.3 mg/dL Critically high 0.2-1.0 [facility] Comment on above: Performed By: #### P T, PTT #### [facility] [address] [place] [address] Dr. Mirza Sadler Calcium [Mass/Vol] 8.9 mg/dL Normal 8.5-10.1 [facility] Comment on above: Performed By: #### P T, PTT #### [facility] [address] [place] [address] Dr. Mirza Sadler Chloride [Moles/Vol] 105 mmol/L Normal 98-107 [facility] Comment on above: Performed By: #### P T, PTT #### [facility] [address] [place] [address] Dr. Mirza Sadler CO2 [Moles/Vol] 23.7 mmol/L Normal 21.0-32.0 [facility] Comment on above: Performed By: #### P T, PTT #### [facility] [address] [place] [address] Dr. Mirza Sadler Creatinine [Mass/Vol] 1.79 mg/dL Critically high 0.70-1.30 [facility] Comment on above: Performed By: #### P T, PTT #### [facility] [address] [place] [address] Dr. Mirza Sadler EGFR-AF IRANIAN 46 mL/min/1.73m2 Critically low >=60 [facility] Comment on above: Performed By: #### P T, PTT #### [facility] [address] [place] [address] Dr. Mirza Sadler EGFR-NON AF IRANIAN 38 mL/min/1.73m2 Critically low >=60 [facility] Comment on above: Performed By: #### P T, PTT #### [facility] [address] [place] [address] Dr. Mirza Sadler Globulin (S) [Mass/Vol] 3.3 g/dL Normal [facility] Comment on above: Performed By: #### P T, PTT #### [facility] [address] [place] [address] Dr. Mirza Sadler Glucose [Mass/Vol] 195 mg/dL Critically high 74-106 [facility] Comment on above: Performed By: #### P T, PTT #### [facility] [address] [place] [address] Dr. Mirza Sadler Potassium [Moles/Vol] 3.7 mmol/L Normal 3.5-5.1 [facility] Comment on above: Performed By: #### P T, PTT #### [facility] [address] [place] [address] Dr. Mirza Sadler Protein [Mass/Vol] 7.5 g/dL Normal 6.4-8.2 [facility] Comment on above: Performed By: #### P T, PTT #### [facility] [address] [place] [address] Dr. Mirza Sadler Sodium [Moles/Vol] 141 mmol/L Normal 136-145 [facility] Comment on above: Performed By: #### P T, PTT #### [facility] [address] [place] [address] Dr. Mirza Sadler Urea nitrogen [Mass/Vol] 25.0 mg/dL Critically high 7.0-18.0 [facility] Comment on above: Performed By: #### P T, PTT #### [facility] [address] [place] [address] Dr. Mirza Sadler Urea nitrogen/Creatinine [Mass ratio] 14.0 mg/mg Normal [facility] Comment on above: Performed By: #### P T, PTT #### [facility] [address] [place] [address] Dr. Mirza Sadler PROTIMEon 10-27-2021 INR Coag (PPP) [Relative time] 1.07 {INR} Normal [facility] Comment on above: Performed By: #### P T, PTT #### [facility] [address] [place] [address] Dr. Mirza Sadler INR GUIDELINES SEE BELOW Normal [facility] Comment on above: Result Comment: RIVKA RED INR: 2.0 - 3.0 CONDITIONS NOT LISTED BELOW 2.5 - 3.5 FOR PROSTHETIC HEART VALVE REPLACEMENT 2.5 - 3.5 RECURRENT THROMBOSIS Performed By: #### P T, PTT #### [facility] [address] [place] [address] Dr. Mirza Sadler PT Coag (PPP) [Time] 11.5 s Normal 9.0-11.6 [facility] Comment on above: Performed By: #### P T, PTT #### [facility] [address] [place] [address] Dr. Mirza Sadler PTTon 10-27-2021 aPTT Coag (Bld) [Time] 25.1 s Normal 22.3-36.2 [facility] Comment on above: Performed By: #### P T, PTT #### [facility] [address] [place] [address] Dr. Mirza Sadler XR CHEST 1 Von [...] by: GAGAN CAREY Date: 2021-10-27 10:21 Normal [facility] 10-20-2021 CNPN Telephone ([employer]) -- LANI LIZAMA ([id number]) 1950 M Date Time Provider Department 10/20/21 ABDON WALKER During your visit today, we recorded the following information about you: Vee Day 10/20/2021 9:43 AM Signed New CBC order. Vee Martinezeder Allergies As of Date: 10/20/2021 Noted Allergy Reaction Nkda [Other] 07/28/2018 16 - Unknown Comments: Received name: Nkda Date Reviewed: 10/20/2021 Reviewed by: Vickie Barrera PA-C - Fully Assessed Reason for Visit: Lab Orders [1688] Primary Visit Diagnosis:Monoclonal gammopathy [D47.2] Order(s):CBC + DIFF [SQCBCDIF] Order #: [id number] FUTURE Prescriptions as of 10/24/2021 - famotidine [...] Status:Closed by VEE DAY on 10/24/21 Normal [facility] RAD - CT Reporton 10-06-2021 RAD - CT Report [id number]:[address] [facility] CT ABD/PELVIS WO CONon 10-03 CT [...] FLANAGAN Date: 2021-10-03 16:29 Normal [facility] Ambulatory Visit Summaryon 0 09-29-2021 [...] RLQ ASHD (arteriosclerotic heart disease) 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 Mirza Sadler Albumin/Globulin [Mass ratio] 1.2 {ratio} Normal [facility] Comment on above: Performed By: #### P T, PTT #### [facility] [address] [place] [address] Dr. Mirza Sadler ALP [Catalytic activity/Vol] 132 U/L Critically high 46-116 [facility] Comment on above: Performed By: #### P T, PTT #### [facility] [address] [address] [address] Mirza Sadler ALT [Catalytic activity/Vol] 30 U/L Normal 16-63 [facility] Comment on above: Performed By: #### P T, PTT #### [facility] [address] [place] [address] Dr. Mirza Sadler Anion gap [Moles/Vol] 10.7 mmol/L Normal [facility] Comment on above: Performed By: #### P T, PTT #### [facility] [address] [place] [address] Dr. Mirza Sadler AST [Catalytic activity/Vol] 21 U/L Normal 15-37 [facility] Comment on above: Performed By: #### P T, PTT #### [facility] [address] [place] [address] Dr. Mirza Sadler Bilirubin [Mass/Vol] 0.7 mg/dL Normal 0.2-1.0 [facility] Comment on above: Performed By: #### P T, PTT #### [facility] [address] [place] [address] Dr. Mirza Sadler Calcium [Mass/Vol] 9.0 mg/dL Normal 8.5-10.1 [facility] Comment on above: Performed By: #### P T, PTT #### [facility] [address] [place] [address] Dr. Mirza Sadler Chloride [Moles/Vol] 106 mmol/L Normal 98-107 [facility] Comment on above: Performed By: #### P T, PTT #### [facility] [address] [place] [address] Dr. Mirza Sadler CO2 [Moles/Vol] 27.5 mmol/L Normal 21.0-32.0 [facility] Comment on above: Performed By: #### P T, PTT #### [facility] [address] [place] [address] Dr. Mirza Sadler Creatinine [Mass/Vol] 1.77 mg/dL Critically high 0.70-1.30 [facility] Comment on above: Performed By: #### P T, PTT #### [facility] [address] [place] [address] Dr. Mirza Sadler EGFR-AF IRANIAN 46 mL/min/1.73m2 Critically low >=60 [facility] Comment on above: Performed By: #### P T, PTT #### [facility] [address] [place] [address] Dr. Mirza Sadler EGFR-NON AF IRANIAN 38 mL/min/1.73m2 Critically low >=60 [facility] Comment on above: Performed By: #### P T, PTT #### [facility] [address] [place] [address] Dr. Mirza Sadler Globulin (S) [Mass/Vol] 3.5 g/dL Normal [facility] Comment on above: Performed By: #### P T, PTT #### [facility] [address] [address] [address] Mirza Sadler Glucose [Mass/Vol] 135 mg/dL Critically high 74-106 [facility] Comment on above: Performed By: #### P T, PTT #### [facility] [address] [address] [address] Mirza Sadler Potassium [Moles/Vol] 4.2 mmol/L Normal 3.5-5.1 [facility] Comment on above: Performed By: #### P T, PTT #### [facility] [address] [place] [address] Dr. Mirza Sadler Protein [Mass/Vol] 7.6 g/dL Normal 6.4-8.2 [facility] Comment on above: Performed By: #### P T, PTT #### [facility] [address] [place] [address] Dr. Mirza Sadler Sodium [Moles/Vol] 140 mmol/L Normal 136-145 [facility] Comment on above: Performed By: #### P T, PTT #### [facility] [address] [place] [address] Dr. Mirza Sadler Urea nitrogen [Mass/Vol] 17.0 mg/dL Normal 7.0-18.0 [facility] Comment on above: Performed By: #### P T, PTT #### [facility] [address] [place] [address] Dr. Mirza Sadler Urea nitrogen/Creatinine [Mass ratio] 9.6 mg/mg Normal [facility] Comment on above: Performed By: #### P T, PTT #### [facility] [address] [place] [address] Dr. Mirza Sadler US SINGLE QUAD RT [...] FLANAGAN Date: 2021-08-27 08:40 Normal [facility] A1C HEMOGLOBINon 07-17-2021 HbA1c (Bld) [Mass fraction] 6.9 % [employer] Other Glucose - FINGER STICKon Glucose [Mass/Vol] 180 mg/dL [employer] [facility] Other HbA1c (Bld) [Mass fraction]o n 07-17-2021 A1C HEMOGLOBIN [employer] Other A1C with Estimated Average G luon 04-10-2021 HbA1c (Bld) [Mass fraction] 6.4 % [employer] Other HbA1c (Bld) [Mass fraction] 243 % [employer] Other Glucoseon 04-10-2021 Glucose [Mass/Vol] 243 mg/dL [employer] [facility] Other A1C HEMOGLOBINon 01-03-2021 HbA1c (Bld) [Mass fraction] 6.6 % [employer] Other Glucose - FINGER STICKon Glucose [Mass/Vol] 142 mg/dL [employer] Other HbA1c (Bld) [Mass fraction]o n 01-03-2021 A1C HEMOGLOBIN [facility] LANI [facility] ([id number]) 1950 M Date Time Provider Department 10/27/20 [...] Status:Closed by ANGELINE WARE on 10/28/20 Normal [facility] Cardiovascular Lab Reporton 10-16-2018 Cardiovascular Lab Report [facility] Patient Name: Lani Lizama [facility] MR #: [id number] Physician: Pinky Bishop, Department of M.D. Medicine Service Date: 10/15/2018 Division of Birthdate: 1950 Cardiology Room #: 3CD [id number] Adult Cardiovascular Services [facility] [address] [facility]. [place] [address] Cardiovascular Laboratory Report FINAL IMPRESSIONS: 1. Severe three-vessel lime coronary artery disease. 2. Wkwc-bs-zpvc bypass grafts patent. 3. Mild in-stent restenosis [...] 4. Follow up with me in the [facility] in the next 4-6 weeks. 5. [...] guidance and using a micropuncture kit. A 6-[place] Glidesheath was inserted without difficulty. Coronary [...] of the vessel. There is evidence of mvvs-ea-wwelc collaterals. The distal vessel is supplied via [...] is a long stented segment in the ofyzlqtf-cm-dezeui portion of the vessel with 30% in-stent restenosis. The vessel distal to the touchdown shows caliber reduction and no discrete stenosis. There is diffuse disease in the branches. Saphenous vein graft to the posterior descending artery. This is widely patent. It shows an extensive stented segment from qtjjvcln-nv-boweuthemm of the vessel. There is a 40%-50% [...] Bishop M.D. Date Trans: 10/16/2018 05:01 Nakul/gatito [id number] cc: Harley Crespo D.O. [address] [place] [phone] Normal [facility] BASIC METABOLIC PANELon 09-29 Calcium [Mass/Vol] 8.9 mg/dL Normal 8.6-10.3 [facility] Comment on above: Order Comment: No: D o not add to previous draw Performed By: #### 1 0070, 79560 #### [facility] [address] [place] [address], [place] Chloride [Moles/Vol] 110 mmol/L High 98-107 [facility] Comment on above: Order Comment: No: D o not add to previous draw Performed By: #### 1 69, 80734 #### [facility] [address] [place] [address], [place] CO2 [Moles/Vol] 26 mmol/L Normal 21-31 [facility] Comment on above: Order Comment: No: D o not add to previous draw Performed By: #### 1 69, 72880 #### [facility] [address] [place] [address], [place] Creatinine [Mass/Vol] 1.52 mg/dL High 0.70-1.30 [facility] Comment on above: Order Comment: No: D o not add to previous draw Performed By: #### 1 69, 79562 #### [facility] [address] [place] [address], [place] GFR/1.73 sq M predicted among blacks MDRD (S/P/Bld) [Vol rate/Area] 56 ml/min/1.73sq m Abnormal >60 [facility] Comment on above: Order Comment: No: D o not add to previous draw Performed By: #### 1 69, [id number] #### [facility] [address] [place] [address], [place] GFR/1.73 sq M predicted among non-blacks MDRD (S/P/Bld) [Vol rate/Area] 46 ml/min/1.73sq m Abnormal >60 [facility] Comment on above: Order Comment: No: D o not add to previous draw Performed By: #### 1 69, 26458 #### [facility] [address] [place] [address], [place] Glucose [Mass/Vol] 89 mg/dL Normal 70-100 [facility] Comment on above: Order Comment: No: D o not add to previous draw Performed By: #### 1 69, 67231 #### [facility] [address] [place] [address], [facility] Potassium [Moles/Vol] 3.9 mmol/L Normal 3.5-5.1 [facility] Comment on above: Order Comment: No: D o not add to previous draw Performed By: #### 1 69, 54966 #### [facility] [address] [place] [id number], [facility] Sodium [Moles/Vol] 141 mmol/L Normal 136-145 [facility] Comment on above: Order Comment: No: D o not add to previous draw Performed By: #### 1 69, 15649 #### [facility] [address] [place] [address], [facility] Urea nitrogen [Mass/Vol] 19 mg/dL Normal 7-25 [facility] Comment on above: Order Comment: No: D o not add to previous draw Performed By: #### 1 69, 62826 #### [facility] [address] [facility] [address], [facility] CBC W/DIFFon 10-15-2018 ABS BASOPHILS 0.1 10*3/uL Normal 0.0-0.2 [facility] Comment on above: Order Comment: No: D o not add to previous draw Performed By: #### 5 0103 #### [facility] [address] [place] [address], [facility] ABS IMM GRANS 0.0 10*3/uL Normal 0.0-0.2 [facility] Comment on above: Order Comment: No: D o not add to previous draw Performed By: #### 5 0103 #### [facility] [address] [place] [address], [facility] ABS NEUTROPHILS 3.5 10*3/uL Normal 1.6-7.6 [facility] Comment on above: Order Comment: No: D o not add to previous draw Performed By: #### 5 0103 #### [facility] [address] [place] [address], [facility] Basophils/100 WBC (Bld) 0.8 % Normal 0.0-1.0 [facility] Comment on above: Order Comment: No: D o not add to previous draw Performed By: #### 5 0103 #### [facility] [address] [place] [address], [facility] Eosinophils (Bld) [#/Vol] 0.3 10*3/uL Normal 0.0-0.5 [facility] Comment on above: Order Comment: No: D o not add to previous draw Performed By: #### 5 0103 #### [facility] [address] [place] [address], [facility] Eosinophils/100 WBC (Bld) 3.9 % Normal 0.0-6.0 [facility] Comment on above: Order Comment: No: D o not add to previous draw Performed By: #### 5 0103 #### [facility] [address] [place] [id number], [facility] Erythrocyte distribution width (RBC) [Ratio] 13.5 % Normal 11.5-15.0 [facility] Comment on above: Order Comment: No: D o not add to previous draw Performed By: #### 5 0103 #### [facility] [address] [place] [id number], [facility] Hematocrit (Bld) [Volume fraction] 39.7 % Normal 39.0-50.0 [facility] Comment on above: Order Comment: No: D o not add to previous draw Performed By: #### 5 0103 #### [facility] [address] [place] [id number], [facility] Hemoglobin (Bld) [Mass/Vol] 13.0 g/dL Normal 13.0-17.0 [facility] Comment on above: Order Comment: No: D o not add to previous draw Performed By: #### 5 0103 #### [facility] [address] [place] [address], [facility] IMMATURE GRANS 0.3 % Normal 0.0-1.0 [facility] Comment on above: Order Comment: No: D o not add to previous draw Performed By: #### 5 0103 #### [facility] [address] [place] [address], [facility] Lymphocytes (Bld) [#/Vol] 1.9 10*3/uL Normal 1.2-4.0 [facility] Comment on above: Order Comment: No: D o not add to previous draw Performed By: #### 5 0103 #### [facility] [address] [place] [address], [facility] Lymphocytes/100 WBC (Bld) 30.1 % Normal 20.0-45.0 [facility] Comment on above: Order Comment: No: D o not add to previous draw Performed By: #### 5 0103 #### [facility] [address] [facility] [place] [address], [facility] MCH (RBC) [Entitic mass] 30.0 pg Normal 27.0-33.0 [facility] Comment on above: Order Comment: No: D o not add to previous draw Performed By: #### 5 0103 #### [facility] [address] [facility] [address] [place] [id number], [facility] MCHC (RBC) [Mass/Vol] 32.7 g/dL Normal 32.0-35.0 [facility] Comment on above: Order Comment: No: D o not add to previous draw Performed By: #### 5 0103 #### [facility] [address] [place] [id number], [facility] MCV (RBC) [Entitic vol] 91.5 fL Normal 82.0-98.0 [facility] Comment on above: Order Comment: No: D o not add to previous draw Performed By: #### 5 0103 #### [facility] [address] [place] [address], [facility] Monocytes (Bld) [#/Vol] 0.7 10*3/uL Normal 0.1-1.0 [facility] Comment on above: Order Comment: No: D o not add to previous draw Performed By: #### 5 0103 #### [facility] [address] [place] [address], [facility] MONOS 10.7 % Normal 5.0-12.0 [facility] Comment on above: Order Comment: No: D o not add to previous draw Performed By: #### 5 3 #### [facility] [address] [place] [address], [facility] Neutrophils/100 WBC (Bld) 54.2 % Normal 40.0-72.0 [facility] Comment on above: Order Comment: No: D o not add to previous draw Performed By: #### 5 3 #### [facility] [address] [place] [address], [facility] Nucleated RBC/100 WBC (Bld) [Ratio] 0 % Normal 0-0 [facility] Comment on above: Order Comment: No: D o not add to previous draw Performed By: #### 5 102 #### [facility] [address] [facility] [place] [address], [facility] PLAT CNT 164 10*3/uL Normal 150-400 [facility] Comment on above: Order Comment: No: D o not add to previous draw Performed By: #### 5 3 #### [facility] [address] [place] [address], [facility] RBC (Bld) [#/Vol] 4.34 10*6/uL Normal 4.20-5.70 [facility] Comment on above: Order Comment: No: D o not add to previous draw Performed By: #### 5 3 #### [facility] [address] WBC (Bld) [#/Vol] 6.38 10*3/uL Normal 4.00-10.60 [facility] Comment on above: Order Comment: No: D o not add to previous draw Performed By: #### 5 0103 #### [facility] [address] [address] MAGNESIUM BLOODon 10-15-2018 Magnesium [Mass/Vol] 2.0 mg/dL Normal 1.9-2.7 [facility] Comment on above: Order Comment: No: D o not add to previous draw Performed By: #### 1 [id number], [id number] #### [facility] [address] [facility] [address] PROTHROMBIN TIMEon 9 INR Coag (PPP) [Relative time] 1.11 {INR} Normal 0.91-1.16 [facility] Comment on above: Order Comment: No: [...] Performed By: #### [id number] #### [facility] PT Coag (PPP) [Time] 14.3 s Normal 12.3-14.8 [facility] Comment on above: Order Comment: No: D o not add to previous draw Result Comment: ALL RESULTS MUST BE INTERPRETED WITH RESPECT TO BLOOD DRAWING ARTIFACT OR DILUTION ERROR OF ANTICOAGULANT AT THE TIME OF SAMPLING. Performed By: #### 5 [id number] #### [address] POC GLUCOSE LABon 10-14-2018 Glucose [Mass/Vol] 180 mg/dL High 70-100 [facility] Comment on above: Performed By: #### 8 [id number] #### [address] Cardiovascular Lab Reporton 02-25-2018 Cardiovascular Lab Report [facility] Patient Name: [facility] MR #: [id number] Physician: Pinky Bishop, Department of M.D. Medicine Service Date: 02/24/2018 Division of Birthdate: 1950 Cardiology Room #: 3AB [id number] Adult Cardiovascular Services [place] [address] Cardiovascular Laboratory Report FINAL IMPRESSIONS: 1. 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 2. Severe 3-vessel lime coronary artery disease. 3. 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 4. Pglhxudm-oq-hiidoc systemic hypertension. RECOMMENDATIONS: 1. Aspirin 81 mg lifelong. 2. 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 3. Aggressive cardiovascular risk factor modification. 4. Optimization of medical management; high intensity statin therapy as tolerated, we will switch his Toprol-XL to Coreg 25 mg p.o. b.i.d., and angiotensin-converting enzyme inhibitor. 5. Follow up with me in the [facility] in the next 2-3 weeks. 6. Follow up with Dr. Crespo as scheduled. PROCEDURES: Limited femoral angiography, bilateral selective coronary angiography, saphenous vein graft angiography, angiography of the left internal mammary artery graft, limited angiography of the left subclavian, percutaneous balloon angioplasty, and Synergy drug-eluting stent placement to the saphenous vein graft to the obtuse marginal, placement of a 6-[place] MYNXGRIP closure device. METHODS: After risks, benefits, and alternatives were explained, written informed consent was obtained. The patient was prepped and draped in usual sterile fashion over both groins. Using 1% lidocaine solution, local infiltration anesthesia was achieved over the right groin. Using a micropuncture kit, access of the right common femoral artery was obtained. A 6-[place] 11 cm sheath was exchanged then [...] to proceed with an interventional procedure. A 6-[place] JR4 guide catheter was advanced in [...] the procedure. All catheters were removed. A 6-[place] Island[place] MYNXGRIP closure device was deployed per protocol achieving optimal hemostasis. Overall, the patient tolerated the procedure well. There were no overt complications. He was to be transferred to the [facility] in stable condition. FINDINGS: Hemodynamics: AO [...] is a 30% touchdown stenosis of the lime vessel. There is evidence of dinh-bw-dvgxl collaterals supplying the distal right coronary artery. Limited femoral angiography, this shows mild plaque and anatomy suitable for closure device. INDICATIONS: Unstable angina. Electronically Signed by: Pinky Bishop M.D. 03/06/2018 12:15 P Pinky Bishop M.D. Date Dict: 02/24/2018/01:39 Hanh Bishop M.D. Date Trans: 02/25/2018 02:12 Nakul/gatito [id number] cc: Harley Crespo D.O. [address] [place] [address] [facility] [id number] Normal [facility] POC GLUCOSE LABon 02-25-2018 Glucose [Mass/Vol] 150 mg/dL High 70-100 [facility] Comment on above: Performed By: #### [id number] #### [facility] [address] [place] [address], [facility] POC GLUCOSE LABon 02-24-2018 Glucose [Mass/Vol] 192 mg/dL High 70-100 [facility] Comment on above: Performed By: #### [id number] #### [facility] [address] [place] [address], [facility] Glucose [Mass/Vol] 186 mg/dL High 70-100 [facility] Comment on above: Performed By: #### [id number] #### [facility] [address] [place] [address], [facility] Vital Signs Date Time Vital Sign Value Performing Clinician Facility 12-12-2023 08:250400 Body height 170.18 cm [facility] 12-12-2023 08:250400 Body mass index (BMI) [Ratio] 27.4 kg/m2 [facility] 12-12-2023 08:25040 Body weight 79.49 kg [facility] 12-12-2023 08:250400 Diastolic blood pressure 79 mm[Hg] [facility] 12-12-2023 08:25-0400 Heart rate 80 /min [facility] 12-12-2023 08:250400 Respiratory rate 12 /min [facility] 12-12-2023 08:250400 Systolic blood pressure 127 mm[Hg] [facility] 10-17-2023 09:21-0400 Body height 170.18 cm [facility] 10-17-2023 09:21-0400 Body mass index (BMI) [Ratio] 28.2 kg/m2 [facility] 10-17-2023 09:21-0400 Body weight 81.81 kg [facility] 10-17-2023 09:21-0400 Diastolic blood pressure 79 mm[Hg] [facility] 10-17-2023 09:21-0400 Heart rate 70 /min [facility] 10-17-2023 09:21-0400 Respiratory rate 18 /min [facility] 10-17-2023 09:21-0400 SaO2% (BldA) [Mass fraction] 97 % [facility] 10-17-2023 09:21-0400 Systolic blood pressure 133 mm[Hg] [facility] 08-12-2023 08:37-0400 Body height 170.18 cm [facility] 08-12-2023 08:37-0400 Body mass index (BMI) [Ratio] 27.6 kg/m2 [facility] 08-12-2023 08:37-0400 Body weight 79.88 kg [facility] 08-12-2023 08:37-0400 Diastolic blood pressure 84 mm[Hg] [facility] 08-12-2023 08:37-0400 Heart rate 82 /min [facility] 08-12-2023 08:37-0400 Respiratory rate 12 /min [facility] 08-12-2023 08:37-0400 Systolic blood pressure 134 mm[Hg] [facility] 07-02-2023 08:54-0400 Body height 170.18 cm [facility] 07-02-2023 08:54-0400 Body mass index (BMI) [Ratio] 27.3 kg/m2 [facility] 07-02-2023 08:54-0400 Body temperature 96.5 [degF] [facility] 07-02-2023 08:54-0400 Body weight 79.09 kg [facility] 07-02-2023 08:54-0400 Diastolic blood pressure 79 mm[Hg] [facility] 07-02-2023 08:54-0400 Heart rate 87 /min [facility] 07-02-2023 08:54-0400 Respiratory rate 18 /min [facility] 07-02-2023 08:54-0400 SaO2% (BldA) [Mass fraction] 96 % [facility] 07-02-2023 08:54-0400 Systolic blood pressure 120 mm[Hg] [facility] 06-18-2023 10:51-0400 Body height 170.18 cm [facility] 06-18-2023 10:51-0400 Body mass index (BMI) [Ratio] 26.6 kg/m2 [facility] 06-18-2023 10:51-0400 Body weight 77.11 kg [facility] 06-18-2023 10:51-0400 Diastolic blood pressure 84 mm[Hg] [facility] 06-18-2023 10:51-0400 Heart rate 95 /min [facility] 06-18-2023 10:51-0400 Respiratory rate 18 /min [facility] 06-18-2023 10:51-0400 SaO2% (BldA) [Mass fraction] 97 % [facility] 06-18-2023 10:51-0400 Systolic blood pressure 127 mm[Hg] [facility] 05-03-2023 09:30-0500 Body height 170.18 cm DO Harley Ball Work Phone: [facility] 05-03-2023 09:30-0500 Body weight 77.29 kg DO Harley Ball Work Phone: [facility] 05-03-2023 09:30-0500 Diastolic blood pressure 85 mm[Hg] DO Harley Ball Work Phone: [facility] 05-03-2023 09:30-0500 Systolic blood pressure 126 mm[Hg] DO Harley Ball Work Phone: [facility] 03-12-2023 11:15-0500 Body height 170.18 cm Arlen Kwong Other [facility] 03-12-2023 11:15-0500 Body mass index (BMI) [Ratio] 27.03 kg/m2 Tondra Mapus Other [facility] Other 03-12-2023 11:15-0500 Body weight 78.29 kg Tondra Mapus Other [facility] 03-12-2023 11:15-0500 Diastolic blood pressure 79 mm[Hg] Tondra Mapus Other [facility] 03-12-2023 11:15-0500 Respiratory rate 18 /min Tondra Mapus Other [facility] Other 03-12-2023 11:15-0500 SaO2% (BldA) [Mass fraction] 98 % Tondra Mapus Other [facility] Other 03-12-2023 11:15-0500 Systolic blood pressure 128 mm[Hg] Tondra Mapus Other [facility] 01-07-2023 10:00-0400 Body height 170.18 cm Kingsley Latisha Other [facility] Other 01-07-2023 10:00-0400 Body mass index (BMI) [Ratio] 27 kg/m2 Kingsley Latisha Other [facility] Other 01-07-2023 10:00-0400 Body temperature 97.7 [degF] Kingsley Latisha Other [facility] Other 01-07-2023 10:00-0400 Body weight 78.2 kg Kingsley Latisha Other [facility] Other 01-07-2023 10:00-0400 Diastolic blood pressure 73 mm[Hg] Kingsley Latisha Other [facility] Other 01-07-2023 10:00-0400 Respiratory rate 16 /min Kingsley Latisha Other [facility] Other 01-07-2023 10:00-0400 SaO2% (BldA) [Mass fraction] 98 % Kingsley Latisha Other [facility] Other 01-07-2023 10:00-0400 Systolic blood pressure 108 mm[Hg] Kingsley Latisha Other [facility] Other 12-31-2022 09:30-0400 Body height 170.18 cm Harley Ball Other [facility] Other 12-31-2022 09:30-0400 Body mass index (BMI) [Ratio] 27.03 kg/m2 Harley Ball Other [facility] Other 12-31-2022 09:30-0400 Body weight 78.29 kg Harley Ball Other [facility] Other 12-31-2022 09:30-0400 Diastolic blood pressure 69 mm[Hg] Harley Ball Other [facility] Other 12-31-2022 09:30-0400 Respiratory rate 16 /min Harley Ball Other [facility] Other 12-31-2022 09:30-0400 Systolic blood pressure 102 mm[Hg] Harley Ball Other [facility] Other 08-31-2022 08:45-0400 Body height 170.18 cm Harley Ball Other [facility] Other 08-31-2022 08:45-0400 Body mass index (BMI) [Ratio] 26.72 kg/m2 Harley Ball Other [facility] Other 08-31-2022 08:45-0400 Body weight 77.38 kg Harley Ball Other [facility] Other 08-31-2022 08:45-0400 Diastolic blood pressure 69 mm[Hg] Harley Ball Other [facility] Other 08-31-2022 08:45-0400 Respiratory rate 12 /min Harley Ball Other [facility] Other 08-31-2022 08:45-0400 Systolic blood pressure 102 mm[Hg] Harley Ball Other [facility] Other 07-02-2022 10:40-0400 Body height 170.18 cm Kingsley Latisha Other [facility] Other 07-02-2022 10:40-0400 Body mass index (BMI) [Ratio] 27.69 kg/m2 Kingsley Latisha Other [facility] Other 07-02-2022 10:40-0400 Body temperature 96.4 [degF] Kingsley Latisha Other [facility] Other 07-02-2022 10:40-0400 Body weight 80.2 kg Kingsley Latisha Other [facility] Other 07-02-2022 10:40-0400 Diastolic blood pressure 71 mm[Hg] Kingsley Latisha Other [facility] Other 07-02-2022 10:40-0400 Respiratory rate 16 /min Kingsley Latisha Other [facility] Other 07-02-2022 10:40-0400 SaO2% (BldA) [Mass fraction] 97 % Kingsley Latisha Other [facility] Other 07-02-2022 10:40-0400 Systolic blood pressure 115 mm[Hg] Kingsley Latisha Other [facility] Other 06-28-2022 09:30-0400 Body height 170.18 cm Harley Ball Other [facility] Other 06-28-2022 09:30-0400 Body mass index (BMI) [Ratio] 27.16 kg/m2 Harley Ball Other [facility] Other 06-28-2022 09:30-0400 Body weight 78.65 kg Harley Ball Other [facility] Other 06-28-2022 09:30-0400 Diastolic blood pressure 66 mm[Hg] Harley Ball Other [facility] Other 06-28-2022 09:30-0400 Respiratory rate 12 /min Harley Ball Other [facility] Other 06-28-2022 09:30-0400 Systolic blood pressure 115 mm[Hg] Harley Ball Other [facility] Other 06-26-2022 08:45-0400 Body height 170.18 cm Arlen Kwong Other [facility] Other 06-26-2022 08:45-0400 Body mass index (BMI) [Ratio] 27.75 kg/m2 Tondra Mapus Other [facility] Other 06-26-2022 08:45-0400 Body weight 80.38 kg Tondra Mapus Other [facility] Other 06-26-2022 08:45-0400 Diastolic blood pressure 61 mm[Hg] Tondra Mapus Other [facility] Other 06-26-2022 08:45-0400 Respiratory rate 16 /min Tondra Mapus Other [facility] Other 06-26-2022 08:45-0400 SaO2% (BldA) [Mass fraction] 96 % Tondra Mapus Other [facility] Other 06-26-2022 08:45-0400 Systolic blood pressure 105 mm[Hg] Tondra Mapus Other [facility] Other 03-20-2022 09:15-0500 Body height 170.18 cm Tondra Mapus Other [facility] Other 03-20-2022 09:15-0500 Body mass index (BMI) [Ratio] 26.15 kg/m2 Tondra Mapus Other [facility] Other 03-20-2022 09:15-0500 Body weight 75.75 kg Tondra Mapus Other [facility] Other 03-20-2022 09:15-0500 Diastolic blood pressure 57 mm[Hg] Tondra Mapus Other [facility] Other 03-20-2022 09:15-0500 Respiratory rate 16 /min Tondra Desireeus Other [facility] Other 03-20-2022 09:15-0500 SaO2% (BldA) [Mass fraction] 98 % Tondra Desireeus Other [facility] Other 03-20-2022 09:15-0500 Systolic blood pressure 117 mm[Hg] Tondra Mapus Other [facility] Other 01-17-2022 11:45-0400 Body height 170.18 cm DO Harley Ball Work Phone: [facility] 01-17-2022 11:22-0400 Diastolic blood pressure 68 mm[Hg] DO Harley Ball Work Phone: [facility] 01-17-2022 11:22-0400 Heart rate 60 /min DO Harley Ball Work Phone: [facility] 01-17-2022 11:22-0400 Systolic blood pressure 118 mm[Hg] DO Harley Ball Work Phone: [facility] 01-17-2022 11:05-0400 Body temperature 97.4 [degF] DO Harley Ball Work Phone: [facility] 01-17-2022 11:05-0400 Respiratory rate 18 /min DO Harley Ball Work Phone: [facility] 01-17-2022 11:05-0400 SaO2% (BldA) [Mass fraction] 95 % DO Harley Ball Work Phone: [facility] 01-17-2022 06:58-0400 Body weight 77.9 kg DO Harley Ball Work Phone: [facility] 01-15-2022 15:23-0400 Inhaled oxygen flow rate 2 L/min DO Harley Ball Work Phone: [facility] 12-18-2021 09:45-0400 Body height 170.18 cm Tondra Mapus Other [facility] Other 12-18-2021 09:45-0400 Body mass index (BMI) [Ratio] 27.25 kg/m2 Tondra Mapus Other [facility] Other 12-18-2021 09:45-0400 Body weight 78.93 kg Tondra Mapus Other [facility] Other 12-18-2021 09:45-0400 Diastolic blood pressure 65 mm[Hg] Tondra Mapus Other [facility] Other 12-18-2021 09:45-0400 Respiratory rate 16 /min Tondra Mapus Other [facility] Other 12-18-2021 09:45-0400 SaO2% (BldA) [Mass fraction] 97 % Tondra Mapus Other [facility] Other 12-18-2021 09:45-0400 Systolic blood pressure 133 mm[Hg] Tondra Mapus Other [facility] Other 09-29-2021 13:13-0400 Blood Pressure Location [facility]rique 09-29-2021 13:13-0400 Diastolic blood pressure 74 mm[Hg] [facility] Luis Enrique 09-29-2021 13:13-0400 Heart rate 60 /min [facility] Luis Enrique 09-29-2021 13:13-0400 Respiratory rate 16 /min [facility] Luis Enrique 09-29-2021 13:13-0400 Systolic blood pressure 138 mm[Hg] G[facility] 07-17-2021 09:45-0400 Body height 170.18 cm Tondra Mapus Other [facility] Other 07-17-2021 09:45-0400 Body mass index (BMI) [Ratio] 30.69 kg/m2 Tondra Mapus Other [facility] Other 07-17-2021 09:45-0400 Body weight 88.91 kg Tondra Mapus Other [facility] Other 07-17-2021 09:45-0400 Diastolic blood pressure 73 mm[Hg] Tondra Mapus Other [facility] Other 07-17-2021 09:45-0400 Respiratory rate 16 /min Tondra Mapus Other [facility] Other 07-17-2021 09:45-0400 SaO2% (BldA) [Mass fraction] 97 % Tondra Mapus Other [facility] Other 07-17-2021 09:45-0400 Systolic blood pressure 163 mm[Hg] Tondra Mapus Other [facility] Other 06-06-2021 10:20-0500 Body height 170.18 cm Kingsley Latisha Other [facility] Other 06-06-2021 10:20-0500 Body mass index (BMI) [Ratio] 30.29 kg/m2 Kingsley Latisha Other [facility] Other 06-06-2021 10:20-0500 Body temperature 96.1 [degF] Kingsley Latisha Other [facility] Other 06-06-2021 10:20-0500 Body weight 87.73 kg Kingsley Latisha Other [facility] Other 06-06-2021 10:20-0500 Diastolic blood pressure 70 mm[Hg] Kingsley Latisha Other [facility] Other 06-06-2021 10:20-0500 Respiratory rate 18 /min Kingsley Latisha Other [facility] Other 06-06-2021 10:20-0500 SaO2% (BldA) [Mass fraction] 97 % Kingsley Latisha Other [facility] Other 06-06-2021 10:20-0500 Systolic blood pressure 160 mm[Hg] Kingsley Latisha Other [facility] Other 04-10-2021 09:15-0500 Body height 170.18 cm Tondra Mapus Other [facility] Other 04-10-2021 09:15-0500 Body mass index (BMI) [Ratio] 30.99 kg/m2 Tondra Mapus Other [facility] Other 04-10-2021 09:15-0500 Body weight 89.77 kg Tondra Mapus Other [facility] Other 04-10-2021 09:15-0500 Diastolic blood pressure 64 mm[Hg] Tondra Mapus Other [facility] Other 04-10-2021 09:15-0500 Respiratory rate 18 /min Tondra Mapus Other [facility] Other 04-10-2021 09:15-0500 SaO2% (BldA) [Mass fraction] 98 % Tondra Mapus Other [facility] Other 04-10-2021 09:15-0500 Systolic blood pressure 136 mm[Hg] Tondra Mapus Other [facility] Other 02-14-2021 10:00-0500 Body height 170.18 cm Kingsley Latisha Other [facility] Other 02-14-2021 10:00-0500 Body mass index (BMI) [Ratio] 30.98 kg/m2 Kingsley Latisha Other [facility] Other 02-14-2021 10:00-0500 Body temperature 96 [degF] Kingsley Latisha Other [facility] Other 02-14-2021 10:00-0500 Body weight 89.72 kg Kingsley Latisha Other [facility] Other 02-14-2021 10:00-0500 Diastolic blood pressure 60 mm[Hg] Kingsley Latisha Other [facility] Other 02-14-2021 10:00-0500 Respiratory rate 16 /min Kingsley Latisha Other [facility] Other 02-14-2021 10:00-0500 SaO2% (BldA) [Mass fraction] 97 % Kingsley Latisha Other [facility] Other 02-14-2021 10:00-0500 Systolic blood pressure 130 mm[Hg] Kingsley Latisha Other [facility] Other 01-03-2021 10:15-0400 Body height 170.18 cm Tondra Mapus Other [facility] Other 01-03-2021 10:15-0400 Body mass index (BMI) [Ratio] 31.01 kg/m2 Tondra Mapus Other [facility] Other 01-03-2021 10:15-0400 Body weight 89.81 kg Tondra Mapus Other [facility] Other 01-03-2021 10:15-0400 Diastolic blood pressure 67 mm[Hg] Tondra Mapus Other [facility] Other 01-03-2021 10:15-0400 Respiratory rate 16 /min Tondra Mapus Other [facility] Other 01-03-2021 10:15-0400 SaO2% (BldA) [Mass fraction] 99 % Tondra Mapus Other [facility] Other 01-03-2021 10:15-0400 Systolic blood pressure 151 mm[Hg] Tondra Mapus Other [facility] Other Encounters Encounter Date Encounter Type Care Provider Facility Start: 12-12-2023 End: 12-12-2023 ambulatory [facility] Work Phone: Start: 12-12-2023 End: 12-12-2023 [facility] Work Phone: Start: 11-12-2023 End: 11-12-2023 ambulatory KEVIN [facility] Start: 11-07-2023 End: 11-07-2023 ambulatory RON TAVERA Not Available Start: 10-17-2023 End: 10-17-2023 ambulatory [facility] Work Phone: Start: 10-17-2023 End: 10-17-2023 Patient encounter procedure [facility] Work Phone: Start: 10-07-2023 End: 10-07-2023 ambulatory NETOAB [facility] Start: 10-02-2023 ambulatory [facility] Start: 09-27-2023 Evaluation and management of inpatient [facility] Start: 09-27-2023 Evaluation and management of inpatient [facility] Start: 09-26-2023 Non-patient / Non-visit [facility] Work Phone: Start: 09-26-2023 Evaluation and management of inpatient [facility] Start: 09-26-2023 End: 09-28-2023 Evaluation and management of inpatient [facility] Start: 09-26-2023 Non-patient / Non-visit [facility] [employer] Work Phone: Start: 09-25-2023 [facility] Start: 09-24-2023 ambulatory [facility] Start: 09-19-2023 Encounter for preprocedural cardiovascular examination KEVIN [facility] Start: 09-19-2023 ambulatory KEVIN [facility] Start: 09-09-2023 End: 09-09-2023 ambulatory NETOAB [facility] Start: 08-27-2023 [facility] Work Phone: Start: 08-12-2023 End: 08-12-2023 ambulatory [facility] Work Phone: Start: 08-12-2023 End: 08-12-2023 [facility] encounter procedure [facility] Work Phone: Start: 07-02-2023 End: 07-02-2023 ambulatory [facility] Work Phone: Start: 07-02-2023 End: 07-02-2023 Patient encounter procedure [facility] Work Phone: Start: 06-24-2023 Non-patient / Non-visit [facility] Work Phone: Start: 06-18-2023 End: 06-18-2023 ambulatory [facility] Work Phone: Start: 06-18-2023 End: 06-18-2023 [facility] Work Phone: Start: 06-13-2023 Non-patient / Non-visit [facility] Work Phone: Start: 05-07-2023 End: 05-07-2023 ambulatory KEVIN [facility] Start: 05-03-2023 End: 05-03-2023 Patient encounter procedure DO Harley Crespo Work Phone: [facility]- Start: 04-30-2023 Telephone encounter Kingsley Woods [facility] Start: 04-30-2023 End: 04-30-2023 [facility] [employer] [facility] Start: 04-23-2023 End: 04-23-2023 ambulatory Arlen Kwong Other [facility] Other Start: 04-23-2023 Telephone encounter Arlen Kwong [facility] Start: 03-18-2023 End: 03-18-2023 ambulatory [facility] Start: 03-12-2023 (DM) Diabetes Arlen Kwong [facility] Start: 03-12-2023 End: 03-13-2023 ambulatory DO Harley Crespo Work Phone: [facility] Other Start: 03-12-2023 End: 03-12-2023 Discharged Recurring DO Harley Crespo Work Phone: [facility] Work Phone: Start: 03-12-2023 End: 03-12-2023 Patient encounter procedure DO Harley Crespo Work Phone: [facility] Work Phone: Start: 03-07-2023 End: 03-07-2023 ambulatory [facility] Start: 03-05-2023 End: 03-05-2023 ambulatory [facility] Start: 02-19-2023 End: 02-19-2023 [facility] Start: 02-12-2023 Telephone encounter Harley Crespo [facility] Start: 02-12-2023 End: 02-12-2023 ambulatory KEVIN [facility] [employer] Other Start: 02-07-2023 End: 02-07-2023 ambulatory Harley Crespo Other [facility] Other Start: 02-07-2023 Telephone encounter Harley Garcia [facility] Start: 02-06-2023 End: 02-06-2023 ambulatory Arlen Kwong Other [employer] Other Start: 02-06-2023 Telephone encounter Arlen [facility] Start: 02-01-2023 End: 02-01-2023 ambulatory LAILA [facility] Start: 01-29-2023 End: 01-29-2023 ambulatory Harley Crespo Other [employer] Other Start: 01-29-2023 Telephone encounter Harley Garcia [facility] Start: 01-25-2023 End: 01-28-2023 Evaluation and management of inpatient DELTA [facility] Start: 01-17-2023 Telephone encounter Arlen [facility] Start: 01-17-2023 End: 01-17-2023 ambulatory EHAB [facility] [employer] Other Start: 01-07-2023 End: 01-07-2023 ambulatory Harley Crespo Other [employer] Other Start: 01-07-2023 Office outpatient vi sit 25 minutes Kingsley Latisha [facility] Start: 01-07-2023 Telephone encounter Harley Garcia [facility] Start: 01-04-2023 End: 01-04-2023 ambulatory Kingsley Latisha Other [employer] Other Start: 01-04-2023 Telephone encounter Kingsley Latisha [facility] Start: 01-01-2023 End: 01-01-2023 ambulatory Kingsley Latisha Other [employer] Other Start: 01-01-2023 Telephone encounter Kingsley Latisha [facility] Start: 12-31-2022 End: 12-31-2022 ambulatory Harley Crespo Other [employer] Other Start: 12-31-2022 Office outpatient vi sit 25 minutes Harley Crespo [facility] Start: 12-31-2022 Telephone encounter Harley HERRMANN G [facility] Start: 12-13-2022 End: 12-13-2022 ambulatory Denita Chairez Other [employer] Other Start: 12-13-2022 Nursing evaluation o f patient and report Denita Chairez [facility] Start: 11-23-2022 End: 11-23-2022 ambulatory Tondra Mapus Other [employer] Other Start: 11-23-2022 Telephone encounter Tondra Mapus [facility] Start: 10-12-2022 End: 10-12-2022 ambulatory Tondra Mapus Other [employer] Other Start: 10-12-2022 Telephone encounter Tondra Mapus [facility] Start: 10-09-2022 End: 10-09-2022 ambulatory Harley Crespo Other [employer] Other Start: 10-09-2022 Telephone encounter Harley HERRMANN G [facility] Start: 10-01-2022 End: 10-01-2022 ambulatory Harley Crespo Other [employer] Other Start: 10-01-2022 Telephone encounter Harley Crespo FP G [facility] Start: 09-27-2022 End: 09-27-2022 ambulatory Kingsley Latisha Other [employer] Other Start: 09-27-2022 Telephone encounter Kingsley Latisha [facility] Start: 09-26-2022 End: 09-26-2022 ambulatory Harley Crespo Other [employer] Other Start: 09-26-2022 Telephone encounter Harley HERRMANN G [facility] Start: 09-19-2022 End: 09-19-2022 ambulatory Kingsley Latisha Other [employer] Other Start: 09-19-2022 Telephone encounter Kingsley Latisha [facility] Start: 09-12-2022 End: 09-12-2022 ambulatory Harley Crespo Other [employer] Other Start: 09-12-2022 Telephone encounter Harley Cherie MONTEZ G [facility] Start: 09-03-2022 End: 09-03-2022 ambulatory Harley Crespo Other [employer] Other Start: 09-03-2022 Telephone encounter Harley Crespo MONTEZ [facility] Start: 08-31-2022 End: 08-31-2022 ambulatory Harley Crespo Other [employer] Other Start: 08-31-2022 Office outpatient vi sit 25 minutes Harley Crespo [facility] Start: 08-10-2022 End: 08-10-2022 ambulatory Harley Cherie Other [employer] Other Start: 08-10-2022 Telephone encounter Harley Crespo MONTEZ [facility] Start: 08-09-2022 End: 08-10-[address] HARLEY CRESPO [facility] [employer] Other Start: 08-09-2022 Telephone encounter Kingsley Latisha [facility] Start: 07-02-2022 End: 07-02-2022 ambulatory Kingsley Latisha Other [employer] Other Start: 07-02-2022 Office outpatient vi sit 25 minutes Kingsley Latisha [facility] Start: 06-28-2022 End: 06-28-2022 ambulatory Harley Crespo Other [employer] Other Start: 06-28-2022 Patient encounter procedure Harley Crespo [facility] Start: 06-26-2022 (DM) Diabetes Tondra Mapus [facility] Start: 06-26-2022 End: 06-26-2022 ambulatory Tondra Mapus Other [employer] Other Start: 06-25-2022 End: 06-26-2022 ambulatory KINGSLEY LATISHA Facility:[facility]1 Start: 06-18-2022 End: 06-19-2022 ambulatory TONDRA MAPUS Facility:[facility] Start: 06-05-2022 End: 06-06-[address] HARLEY CRESPO Facility:[facility] Start: 05-26-2022 End: 05-26-2022 ambulatory Harley Crespo Other [employer] Other Start: 05-26-2022 [address] Crespo [facility] Start: 05-25-2022 End: 05-25-2022 ambulatory Tondra Mapus Other [employer] Other Start: 05-25-2022 Telephone encounter Tondra Mapus [facility] Start: 05-03-2022 End: 05-04-[address] PINKY BISHOP Facility:[facility] Start: 04-18-2022 End: 04-19-[address] PINKY BISHOP Facility:[facility] Start: 03-22-2022 End: 03-23-[address] HIGINIO FLANAGAN Facility:[facility] Start: 03-20-2022 (DM) Diabetes Tondra Mapus [facility] Start: 03-20-2022 End: 03-20-2022 ambulatory Tondra Mapus Other [employer] Other Start: 03-12-2022 End: 03-13-2022 Evaluation and management of inpatient DR PARUL CHU Facility:[facility] Start: 03-09-2022 End: 03-10-[address] SHANNON LANDIS Facility:[facility] Start: 03-02-2022 End: 03-03-[address] HARLEY CRESPO Facility:[facility] Start: 02-19-2022 End: 02-19-2022 ambulatory Tondra Mapus Other [employer] Other Start: 02-19-2022 Telephone encounter Tondra Mapus [facility] Start: 02-08-2022 End: 02-08-2022 ambulatory Tondra Mapus Other [employer] Other Start: 02-08-2022 Telephone encounter Tondra Mapus [facility] Start: 01-15-2022 End: 01-17-2022 Evaluation and management of inpatient DO Harley Crespo Work Phone: [facility] [place] [facility] Start: 01-15-2022 End: 01-15-[address] HARLEY CRESPO Facility:[facility]1 Start: 12-18-2021 Registered Recurring DO [place] Work Phone: [facility] Start: 12-18-2021 (DM) Diabetes Tondra Mapus [facility] Start: 12-18-2021 End: 12-18-2021 ambulatory Tondra Mapus Other [employer] Other Start: 12-08-2021 End: 12-09-[address] HARLEY CRESPO Facility:[facility]1 Start: 11-30-2021 End: 12-01-2021 ambulatory KINGSLEY LATISHA Facility:[facility] Start: 11-24-2021 End: 11-25-[address] HARLEY CRESPO Facility:[facility] Start: 11-16-2021 End: 11-16-2021 ambulatory Tondra Mapus Other [employer] Other Start: 11-16-2021 Telephone encounter Tondra Mapus [facility] Start: 2021 End: 2021 ambulatory Tondra Mapus Other [employer] Other Start: 2021 Telephone encounter Tondra Mapus [facility] Start: 10-31-2021 End: 10-31-2021 ambulatory Tondra Mapus Other [employer] Other Start: 10-31-2021 Telephone encounter Tondra Mapus [facility] Start: 10-27-2021 End: 10-27-2021 ambulatory [...] 07-24-2021 End: 07-24-2021 ambulatory Tondra Mapus Other [employer] Other Start: 07-24-2021 Telephone encounter Tondra Mapus [facility] Start: 07-17-2021 (DM) Diabetes Tondra Mapus [facility] Start: 07-17-2021 End: 07-17-2021 ambulatory Tondra Mapus Other [employer] Other Start: 06-19-2021 End: 06-19-2021 ambulatory Shannon Escobar Other [employer] Other Start: 06-19-2021 Telephone encounter Shannon Escobar [facility] Start: 06-06-2021 End: 06-06-2021 ambulatory Kingsley Latisha Other [employer] Other Start: 06-06-2021 Office outpatient vi sit 25 minutes Kingsley Latisha [facility] Start: 05-22-2021 End: 05-22-2021 ambulatory Tondra Mapus Other [employer] Other Start: 05-22-2021 Telephone encounter Tondra Mapus [facility] Start: 05-16-2021 End: 05-16-2021 ambulatory Tondra Mapus Other [employer] Other Start: 05-16-2021 Telephone encounter Tondra Mapus [facility] Start: 04-10-2021 (DM) Diabetes Tondra Mapus [facility] Start: 04-10-2021 End: 04-10-2021 ambulatory Tondra Mapus Other [employer] Other Start: 04-10-2021 Telephone encounter Tondra Mapus [facility] Start: 02-14-2021 End: 02-14-2021 ambulatory Kingsley Latisha Other [employer] Other Start: 02-14-2021 Patient encounter procedure Kingsley Latisha [facility] Start: 02-14-2021 Telephone encounter Tondra Mapus [facility] Start: 01-03-2021 (DM) Diabetes Tondra Mapus [facility] Start: 10-14-2018 End: 10-15-2018 Patient encounter procedure [facility] Facility:[facility] Start: 02-24-2018 End: 02-25-2018 Evaluation and management of inpatient [facility] Facility:[facility] Procedures Date Procedure Procedure Detail [...] Work Phone: Start: 04-01-2018 Cardiac catheterization Gagan MORGANDarling Start: 02-24-2018 DILATION OF 1 COR ART [...] Author Start: 10-26-2023 DIABETES SCREEN DIABETES SCREEN [facility] Start: 10-17-2023 Patient referral [facility] Work Phone: Start: 01-17-2022 [facility] Start: 01-17-2022 Radionuclide myocard ial perfusion stress study NM rachel perf SPECT rest & str [facility] Start: 01-17-2022 Referral to cardiac rehabilitation program [facility] Start: 01-16-2022 [facility] Start[facility] 01-15-2022 [facility] Start: 11-30-2021 Influenza vaccination INFLUENZA (#1) [facility] Start: 10-24-2021 End: 12-24-2021 CBC W Auto Differential panel - Blood CBC + DIFF Lab Routine Monoclonal gammopathy Expected: 10/24/2021, Expires: 12/24/2021 [facility] Work Phone: Comment on above: Expected: 10/24/2021 , Expires: 12/24/2021 Start: 04-25-2021 Adult depression screening assessment DEPRESSION SCREENING [facility] Start: 04-01-2021 ADVANCE DIRECTIVE DISCUSSION ADVANCE DIRECTIVE DISCUSSION [facility] Start: 11-21-2020 COVID-19 VACCINE (3 - Booster for Pfizer series) COVID-19 VACCINE (3 - Booster for Pfizer series) [facility] Start: 11-07-2001 SHINGRIX VACCINE (1 of 2) SHINGRIX VACCINE (1 of 2) [facility] Start: 11-07-1996 COLOGUARD (FIT-DNA) COLOGUARD (FIT-D NA) [facility] Start: 11-07-1996 Colonoscopy COLONOSCOPY [facility] Start: 11-07-1996 COLORECTAL CANCER SCREENING COLORECTAL CANCER SCREENING [facility] Start: 11-07-[address] COLONOGRAPHY [facility] Start: 11-07-1996 FECAL OCCULT BLOOD FECAL OCCULT BLOO D [facility] Start: 11-07-1996 SIGMOIDOSCOPY SIGMOIDOSCOPY [facility] Start: 11-07-1986 LIPID SCREEN LIPID SCREEN [facility] Start: 11-07-1970 Urine microalbumin profile DTAP,TDAP,TD (1 - Tdap) [facility] Start: 11-07-1969 HEPATITIS C SCREENING HEPATITIS C SC REEJOHN [facility] Start: 1950 ABDOMINAL AORTIC ANEURYSM SCREENING ABDOMINAL AORTIC ANEURYSM SCREENING [facility] Comprehensive metabo lic 1999 panel - Serum or Plasma [facility] Patient Education [facility] Work Phone: Patient referral [facility] Work Phone: Renal function 1999 panel - Serum or Plasma [facility] Immunizations Immunization Date Immunization Notes Care Provider Poli patel 12-12-2023 influenza, high dose seasonal, preservative-free [facility] 12-13-2022 influenza, high dose seasonal, preservative-free Denita Chairez Other [employer] [facility] Other 12-13-2022 influenza virus vaccine, unspecified formulation DO Harley Crespo Work Phone: [facility] 12-15-2021 influenza virus vaccine, unspecified formulation DO Harley Crespo Work Phone: [facility] 12-15-2021 influenza, high dose seasonal, preservative-free Harley Crespo Other [employer] [facility] Other 02-21-2021 COVID-19 mRNA, Comirnaty (Pfizer) DO Harley Ball Work Phone: [facility] 06-21-2020 COVID-19 Vaccine Pfi zer - Documentation Purposes Only Tondra Mapus Other [facility] 05-30-2020 COVID-19 Vaccine Pfi zer - Documentation Purposes Only Tondra Mapus Other [facility] 01-17-2018 pneumococcal polysaccharide vaccine, 23 valent Abdon Walker MD Work Phone: [facility] 01-17-2018 Seasonal trivalent influenza vaccine, adjuvanted, preservative free Abdon Walker MD Work Phone: [facility] 01-16-2017 influenza, high dose seasonal, preservative-free Abdon Walker MD Work Phone: [facility] 11-30-2016 influenza, injectabl e, quadrivalent, preservative free Abdon Walker MD Work Phone: [facility] 11-14-2016 pneumococcal conjuga te vaccine, 13 valent Abdon Walker MD Work Phone: [facility] 04-02-2016 pneumococcal polysaccharide vaccine, 23 valent Arlen Kwong Other [facility] 01-23-2012 influenza, seasonal, injectable Abdon Walker MD Work Phone: [facility] 12-13-2010 influenza, seasonal, injectable Abdon Walker MD Work Phone: [facility] 01-27-2009 novel [id number], preservative-free, injectable Abdon Walker MD Work Phone: [facility] 01-19-2008 influenza virus vaccine, whole virus Abdon Walker MD Work Phone: [facility] Payers Date Payer Category Payer Unknown MMO MMO MEDICARE SUPPLEMENT [id number] 2019-Present [phone] [address] [place] [address] Indemnity [id number] 2017 Self-pay [id number] 2017 Unknown [id number] 2017 Unknown [id number] 2016 Medicare MEDICARE MEDICAR E A AND B [id number] 2016-Present [phone] [address] [address] [place] [address] Medicare [id number] 1959 Medicare [id number] 1959 Unknown [id number] [id number] 1951 Unknown [id number] 2.16.840.1.491448.3.579.2.647 1951 Unknown [id number] 2.16.840.1.047243.3.579.2.647 1951 Unknown [id number] 2.16.840.1.976697.3.579.2.593 1951 Unknown [id number] 2.16.840.1.227762.3.579.2.593 1951 Unknown [id number] 2.16.840.1.912492.3.579.2.593 1951 Unknown [id number] 2.16.840.1.231938.3.579.2.593 1951 Unknown [id number] 2.16.840.1.216518.3.579.2.593 1951 Unknown [id number] 2.16.840.1.724541.3.579.2.593 1951 Unknown [id number] 2.16.840.1.809233.3.579.2.593 1951 Unknown [id number] 2.16.840.1.264072.3.579.2.593 1951 Unknown [id number] 2.16.840.1.894496.3.579.2.593 1951 Unknown [id number] 2.16.840.1.687256.3.579.2.593 1951 Unknown [id number] 2.16.840.1.653985.3.579.2.593 1951 Unknown [id number] 2.16.840.1.312691.3.579.2.593 1951 Unknown [id number] 2.16.840.1.333488.3.579.2.593 1951 Unknown [id number] 2.16.840.1.455991.3.579.2.593 1951 Unknown [id number] 2.16.840.1.636480.3.579.2.593 1951 Unknown [id number] 2.16.840.1.841808.3.579.2.593 1951 Unknown [id number] 2.16.840.1.547382.3.579.2.593 1951 Unknown [id number] 2.16.840.1.233570.3.579.2.593 1951 Unknown [id number] 2.16.840.1.922538.3.579.2.1259 Unknown [id number] Unknown [id number] 2.16.840.1.298361.3.579.2.531 Unknown HCAP/HFA/FAP Active [id number] Social History Date Type Detail Facility Unknown if ever smoked [facility] Other Sex Assigned At [facility] Other Start: 09-29-2021 End: 07-02-2023 Tobacco smoking status Ex-smoker (finding) [facility] Tobacco smoking status Never [facility] Start: 07-23-2018 Tobacco use and exposure Smokeless tobacco non-user [facility] Start: 10-25-2020 Alcohol intake Ex-drinker (finding) [facility] Start: 1950 Sex Assigned At Not on file C [facility] Start: 1950 Sex Assigned At Male F [facility] Medical Equipment Procedure Code Equipment Code Equipment [...] 2. 0 X 15 FDA Start: 07-12-2020 Pen Needle, Diab etic (Bd Ultra-Fine Latoya Pen Needle) 32 gauge x 5/32 needle Start: 11-21-2023 Goals Date Patient Goal Desired Activity /State Functional Status Date Assessment Result Facility 01-17-2022 Functional status Patient at Baseline [facility] Work Phone: 09-29-2021 Functional Status N/A [facility] Mental Status Date Assessment Result Facility 01-17-2022 Cognitive function Cognitive Sta tus Patient at Baseline [facility] Work Phone: Clinical Notes 01-03-2021 to 10-07-2023 Note Date & Type Note Facility 10-07-2023 Note [facility] Cardiology Clinic Note Chief Complaint: Patient here for follow up [facility] for NSTEMI. Underwent PCI on 09/27/[address] Foreman. Says he feels much better s/p intervention. Denies chest pain, SOB, palpitations, and lightheadedness/syncope. HPI: Lani Lizama is a 72 y.o. male Hospital Medicine Discharge Summary Final Discharge Diagnosis: #NSTEMI #chronic HFrEF NYHA class I #CAD #HTN #Diabetes #Hx bradycardia Admission Diagnosis: NSTEMI (non-ST elevated myocardial infarction) (CMS/HCC) [I21.4] Hospital course: 72-year-old male with past medical history significant for CAD status post CABG x 5 vessels and history of 7 PCI's who presented to the hospital due to chest pain. 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 Patient reports compliance with his medications and that he is not requiring diuretics. Initial evaluation at the outside hospital showed elevated high-sensitivity troponins and he was sent to [facility] for an evaluation by cardiology. Patient was started on heparin drip and he had coronary angiogram done on September 27, 2023. patient required PCI to proximal saphenous venous graft to PDA. He was monitored overnight on telemetry after the PCI with no events. Cardiology evaluated him on the day of the discharge. Patient will continue with his dual antiplatelet treatment with aspirin and Plavix, he will continue to have close follow-up with cardiology as an outpatient. Patient is being discharged home in stable condition on September 28, 2023. Cardiology ROS: Review of Systems Musculoskeletal: Positive for arthritis, back pain, joint pain and myalgias. All other systems reviewed and are negative. Past Medical History He has a past medical history of Carotid artery stenosis, Coronary artery disease, Diabetes mellitus ([facility]), Hyperlipidemia, Hypertension, PVD (peripheral vascular disease) ([facility]), and Third degree heart block ([facility]). Surgical History He has a past [...] day by oral route., Disp: , Rfl: clopidogrel (Plavix) 75 mg [...] breakfast, with lunch, and with evening meal. Pt states he takes 7 units with each meal, Disp: , Rfl: insulin lispro (HumaLOG U-100 Insulin) 100 unit/mL injection, Inject 12 Units under the skin with breakfast, with lunch, [...] at bedtime., Disp: 90 tablet, Rfl: 3 spironolactone (Aldactone) 25 mg tablet, Take 1 tablet (25 mg) by mouth in the morning for 99 doses., Disp: 30 tablet, Rfl: 3 Last Recorded Vitals BP 144/90 (BP Location: Left arm, Patient Position: Sitting) Pulse 77 Ht 1.702 m (5' 7 ) Wt 80.7 kg (178 lb) SpO2 98% BMI 27.88 kg (more content not included)... [facility] 09-28-2023 Note ------ Attestation signed by Kevin Arteaga MD at 09/30/2023 12:13 PM By using the attestations below, the [...] be an additional personal documentation from me. ------ Cardiology Progress Note Subjective Subjective: Lani Lizama is a 72 y.o. male was seen and examined this morning. Denied any chest pain or SOB. Able to lie flat comfortably. Objective Current Facility-Administered Medications: ALPRAZolam (Xanax) tablet 0.5 mg, 0.5 mg, oral, TID, Heidy Dee MD, 0.5 mg at 09/28/23 0731 alum-mag hydroxide-simeth (Mylanta) 200-200-20 mg/5 mL oral suspension 20 mL, 20 mL, oral, 4x daily PRN, Heidy Dee MD aspirin chewable tablet 81 mg, 81 mg, oral, Daily, Dejuan Armstrong MD, 81 mg at 09/28/23 0920 bumetanide (Bumex) tablet 0.5 mg, 0.5 mg, oral, Daily, Heidy Dee MD clopidogrel (Plavix) tablet 75 mg, 75 mg, oral, Daily, Heidy Dee MD, 75 mg at 09/28/23 09 dapagliflozin propanediol (Farxiga) tablet 10 mg, 10 mg, oral, Daily, Heidy Dee MD, 10 mg at 09/28/23 09 glucose chewable tablet 24 g, 24 g, oral, q15 min PRN OR dextrose 50 % in water (D50W) syringe 25 g, 25 g, intravenous, q15 min PRN, Heidy Dee MD docusate sodium (Colace) capsule 100 mg, 100 mg, oral, Daily, Heidy Dee MD, 100 mg at 09/28/23918 isosorbide mononitrate ER (Imdur) 24 hr tablet 60 mg, 60 mg, oral, 2 times daily, Heidy Dee MD lisinopril tablet 2.5 mg, 2.5 mg, oral, BID, Heidy Dee MD, 2.5 mg at 09/28/23 0920 metoprolol succinate XL (Toprol-XL) 24 hr tablet 150 mg, 150 mg, oral, Daily, Heidy Dee MD, 150 mg at 09/28/23 09 pantoprazole (ProtoNix) EC tablet 40 mg, 40 mg, oral, Daily, Heidy Dee MD, 40 mg at 09/28/23 0631 rosuvastatin (Crestor) tablet 40 mg, 40 mg, oral, Nightly, Heidy Dee MD, 40 mg at 09/27/23 6624 Insert peripheral IV, , , Once AND Saline lock IV, , , Once AND sodium chloride flush 10 mL, 10 mL, intravenous, q8h PRN, Catalina Marin MD traMADol (Ultram) tablet 50 mg, 50 mg, oral, q6h PRN, Jesus Alexander, 50 mg at 09/27/23 9129 Objective: Patient Vitals for the past 24 hrs: BP Temp Temp src Pulse Resp SpO2 Weight 09/28/23 0731 147/70 36.7 ???C (98.1 ???F) Temporal 79 15 97 % -- 09/28/23 0410 139/78 36.4 ???C (97.5 ???F) Temporal 80 15 97 % -- 09/28/23 0409 -- -- -- -- -- -- 78.9 kg (174 lb) 09/28/23 0200 132/62 -- -- 69 11 97 % -- 09/28/23 0100 129/68 -- -- 75 11 94 % -- 09/28/23 0000 137/66 36.5 ???C (97.7 ???F) Temporal 78 16 95 % -- 09/27/23 2315 122/71 -- -- 79 14 93 % -- 09/27/23 2220 134/68 -- -- 82 16 95 % -- 09/27/23 2115 133/66 -- -- 81 13 94 % -- 09/27/23 2015 147/71 36.4 ???C (97.5 ???F) Temporal 78 20 95 % -- 09/27/23 1915 153/83 -- -- 81 19 97 % -- 09/27/23 1845 (!) 150/96 36.8 ???C (98.2 ???F) -- 80 15 98 % -- 09/27/23 1815 154/75 37 ???C (98.6 ???F) -- 82 14 100 % -- 09/27/23 1800 (!) 158/92 37 ???C (98.6 ???F) -- 81 19 98 % -- 09/27/23 1745 (!) 148/91 37.1 ???C (98.8 ???F) Temporal 83 20 98 % -- 09/27/23 1730 155/83 36.7 ???C (98.1 ???F) Temporal 87 18 98 % -- 09/27/231712 -- -- -- -- -- 100 % -- 09/27/23 1712 152/80 -- -- 80 16 99 % -- 09/27/23 1520 -- -- -- -- -- 98 % -- 09/27/23 1519 162/87 -- -- 87 16 98 % -- Physical Examination: GENERAL: AOx3, in no acute distress. HEAD: Atraumatic, normocephalic. EYES: EFREN, EOMI. NECK: No JVD present. CARDIAC: RRR. No murmur, rubs, or gallops. RESPIRATORY: CTAB, no increased effort of breathing. ABDOMEN: Soft, nontender, nondistended. EXTREMITIES: No lower extremity edema, peripheral pulses are 2+ bilaterally. NEURO: No focal deficits Relevant Lab Results Encounter Date: 09/26/23 ECG 12 lead Result Value Ventricular Rate 78 Atrial Rate 78 IA Interval 160 QRS DURATION 144 QT Interval 444 QTC CALCULATION(BAZETT) 506 P [place] 49 R-[place]ami -41 T Wave [place] 106 Impression Atrial-sensed ventricular-paced rhythm Abnormal ECG When compared with ECG of 26-SEP-2023 18:59, Vent. rate has decreased BY 3 BPM Lab Results Component Value Date TROPONINI 3.05 (HH) 09/27/2023 Complete Echo (TTE) w/wo Imaging Agent, Strain, 3D, Bubble Study Result Date: 09/27/2023 1 1 [facility] Heart Station [address] [facility] [place] [address] [phone] (fax) Echocardiogram-[facility] Name: LANI LIZAMA Study Date: 09/27/2023 07:42 AM B/P: 118 mmHg/57 mmHg (more content not included)... [facility] 09-28-2023 Note Hospital Medicine Discharge Summary Final Discharge Diagnosis: #NSTEMI #chronic HFrEF NYHA class I #CAD #HTN #Diabetes #Hx bradycardia Admission Diagnosis: NSTEMI (non-ST elevated myocardial infarction) (CMS/[facility]ERLY [facility]) [I21.4] Hospital course: 72-year-old male with past medical history significant for CAD status post CABG x 5 vessels and history of 7 PCI's who presented to the hospital due to chest pain. 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 Patient reports compliance with his medications and that he is not requiring diuretics. Initial evaluation at the outside hospital showed elevated high-sensitivity troponins and he was sent to [facility] for an evaluation by cardiology. Patient was started on heparin drip and he had coronary angiogram done on September 27, 2023. patient required PCI to proximal saphenous venous graft to PDA. He was monitored overnight on telemetry after the PCI with no events. Cardiology evaluated him on the day of the discharge. Patient will continue with his dual antiplatelet treatment with aspirin and Plavix, he will continue to have close follow-up with cardiology as an outpatient. Patient is being discharged home in stable condition on September 28, 2023. Dear Dr. Cherie MD, Lani is advised to follow up with you within 1-2 weeks. Follow-up with: Cardiology Scheduled appointments: No future appointments. Your medication list CONTINUE taking these medications Instructions Last Dose Given Next Dose Due ALPRAZolam 0.5 mg tablet Commonly known as: Xanax aspirin 81 mg chewable tablet clopidogrel 75 mg tablet Commonly known as: Plavix docusate sodium 100 mg capsule Commonly known as: Colace empagliflozin 10 mg Commonly known as: Jardiance HumaLOG U-100 Insulin 100 unit/mL injection Generic drug: insulin lispro insulin detemir 100 unit/mL injection vial Commonly known as: Levemir isosorbide mononitrate ER 60 mg 24 hr tablet Commonly known as: Imdur Take 1 tablet (60 mg) by mouth 2 times daily. lisinopril 2.5 mg tablet Take 1 tablet (2.5 mg) by mouth in the morning and at bedtime. metoprolol succinate XL 100 mg 24 hr tablet Commonly known as: Toprol-XL Take 1 tablet (100 mg) by mouth in the morning. Do not crush or chew. metoprolol succinate XL 50 mg 24 hr tablet Commonly known as: Toprol-XL Take 1 tablet (50 mg) by mouth in the morning. Do not crush or chew. multivitamin capsule nitroglycerin 0.4 mg SL tablet Commonly known as: Nitrostat PLACE 1 TABLET UNDER TONGUE EVERY 5 MINS, UP TO 3 DOSES NEEDED FOR CHEST PAIN pantoprazole 40 mg EC tablet Commonly known as: ProtoNix rosuvastatin 40 mg tablet Commonly known as: Crestor Take 1 tablet (40 mg) by mouth at bedtime. STOP taking these medications bumetanide 0.5 mg tablet Commonly known as: Bumex Lani has No Known Allergies. Disposition: Home or Self Care () Discharge Condition: Stable Code Status: Full Code Diagnostic Results Hematology: Results from last 7 days Lab Units 09/28/23 0502 09/27/23 0359 WBC AUTO 10*3/uL 7.88 7.95 HEMOGLOBIN g/dL 14.4 15.3 HEMATOCRIT % 43.4 46.2 MCV fL 85.6 86.7 PLATELETS AUTO 10*3/uL 159 158 Chemistry: Results from last 7 days Lab Units 09/28/23 0414 09/27/23 0359 09/26/23 1734 SODIUM mmol/L 137 140 141 POTASSIUM mmol/L 4.1 4.3 4.2 CHLORIDE mmol/L 104 105 104 CO2 mmol/L 24 23 26 BUN mg/dL 26* 26* 24 CREATININE mg/dL 1.59* 1.56* 1.45* GLUCOSE mg/dL 188* 166* 141* CALCIUM mg/dL 8.8 9.2 9.4 Results from last 7 days Lab Units 09/26/23 1734 AST U/L 50* ALT U/L 20 ALK PHOS U/L 100 BILIRUBIN TOTAL mg/dL 1.1* Test Results Pending At Discharge: Diet at the time of discharge: regular diet and cardiac diet Nutrition Screen Activity: Normal activity as tolerated Objective Blood pressure 147/70, pulse 79, temperature 36.7 ???C (98.1 ???F), temperature source Temporal, resp. rate 15, height 1.702 m (5' 7 ), weight 78.9 kg (174 lb), SpO2 97 %. Cardiology: Normal rate, regular rhythm. Lungs: Clear to auscultation, no wheezes, rales or rhonchi, symmetric air entry. Abdomen: Soft, non tender, non distended. Total time for discharge - review of data, exam, discussion with providers and care-team, med-rec and orders, arranging follow up, counseling of patient and/or family and documentation was 41 minutes. Signed Heidy Dee MD Hospital Medicine 09/28/2023 11:15 AM [facility] 09-27-2023 Note Patient: Lani Quintanilla ed Procedure Information Date/Time: 09/27/23 1300 Procedure: Coronary angiography Location: [facility] TEAM PSYCHOLOGIST 3 / [facility] (Cath) Providers: Luisito Foreman MD Clinical information reviewed: Allergies Meds Physical Exam Airway Mallampati: II TM distance: >3 FB Neck ROM: full Cardiovascular Rhythm: regular Rate: normal Dental Pulmonary Breath sounds clear to auscultation Abdominal Abdomen: soft Anesthesia Plan ASA 3 (Moderate sedation) Anesthetic plan and risks discussed with patient. Use of blood products discussed with patient who consented to blood products. Plan discussed with fellow and attending. Additional Equipment Requests [facility] 09-27-2023 Note Adult Nutrition Asse ssment: Name: Lani Lizama Date: 1950 Date of Visit: 09/27/23 Admission Dx: NSTEMI (non-ST elevated myocardial infarction) ([facility]) [I21.4] Reason for assessment: high risk -wound Information obtained from: patient, family, medical record, and nursing -son at bedside Past Medical History: Diagnosis Date Carotid artery stenosis Coronary artery disease Diabetes mellitus ([facility]) Hyperlipidemia Hypertension PVD (peripheral vascular disease) ([facility]) Third degree heart block ([facility]) CABG x5, stents, EF 30%, HF Current Medications: ALPRAZolam, 0.5 mg, oral, TID aspirin, 81 mg, oral, Daily [Held by provider] bumetanide, 0.5 mg, oral, Daily clopidogrel, 75 mg, oral, Daily [Held by provider] dapagliflozin propanediol, 10 mg, oral, Daily docusate sodium, 100 mg, oral, Daily [Held by provider] isosorbide mononitrate ER, 60 mg, oral, 2 times daily [Held by provider] lisinopril, 2.5 mg, oral, BID metoprolol succinate XL, 150 mg, oral, Daily pantoprazole, 40 mg, oral, Daily rosuvastatin, 40 mg, oral, Nightly heparin, 0-28 Units/kg/hr, Last Rate: 13 Units/kg/hr (09/27/23 1042) Labs: 0 Lab Value Date/Time POCGLU 193 (H) 09/27/2023 1127 BUN 26 (H) 09/27/2023 035 CREATININE 1.56 (H) 09/27/2023 0359 NA 140 09/27/2023 035 K 4.3 09/27/2023 035 MG 2.0 10/15/2018 0556 HGB 15.3 09/27/2023 035 WBC 7.95 09/27/2023 0359 CHOL 108 (L) 09/27/2023 0359 HDL 31 09/27/2023 0359 Other Pertinent Labs: BG POC 151-286 A1c 6.1% (per pt, taken 2 months ago) Elevated troponin I/O: Intake/Output Summary (Last 24 hours) at 09/27/2023 1428 Last data filed at 09/27/2023 1042 Gross per 24 hour Intake 426.75 ml Output -- Net 426.75 ml Allergies: No Known Allergies Nutrition Problems: Swallowing Assessment: Swallow screen 09/26 Mouth: upper dentures, not present Abdominal Assessment: Last BM this AM per pt Appetite: good Cognition: A/O x4 Skin: scabs x2 to L foot (from clipping toe nails) SOB: 2L NC Other: NPO for cath today Nutrition Data/Clinical Indicators of Nutrition Status: Height: 170.2 cm (5' 7 ) Weight: 79.5 kg (175 lb 3.2 oz) BMI (Calculated): 27.43 Wt change: Denies any recent wt changes Wt Readings from Last 10 Encounters: 09/27/23 79.5 kg (175 lb 3.2 oz) 09/09/23 80.3 kg (177 lb) 05/07/23 77.1 kg (170 lb) 04/30/23 77.1 kg (170 lb) 03/18/23 76.7 kg (169 lb) 03/07/23 78.5 kg (173 lb) 02/01/23 79.4 kg (175 lb) 01/28/23 81.2 kg (179 lb 0.2 oz) 01/17/23 78.5 kg (173 lb) 10/09/22 76.7 kg (169 lb) IBW: 67.3 kg UBW 175 lbs Nutrition Assessment: Nutrition history: Pt seen today for presence of wounds. However, upon chart review and speaking with pt, no open wounds currently present. Pt cooks and shops for himself. He tries to monitor amount of sugars in his diet. He endorses adding salt to food. Eats 2 meals/day. Meals typically consist of chicken, some type of potato and vegetables. Recalls previous HF education in Dec 2022. Monitors wt and BG at home and reports compliance with medications. Dietary Orders (From admission, onward) Start Ordered 09/27/23 0001 Diet NPO Diet effective midnight Comments: Ice Chips Question: Reason for NPO: Answer: Operation/Procedure 09/26/23 8983 Percent Meals Eaten (%): 100 (09/26/23 1851 : Carolina Bragg RN) Nutrition Risk: Low Malnutrition Assessment: Patient at risk for malnutrition according to hospital criteria, but does not meet the clinical characteristics per the Academy of Nutrition and Dietetics, and the [place] Society of Enteral and Parenteral Nutrition to support the diagnosis of malnutrition. Nutrition Education: Diet literature: Heart Healthy Grocery List, No Salt Shaker Recipes Expected compliance/patient understanding: Good -goal of 2000 mg Na/day -avoid added Na, discussed alternative seasoning options -daily wt monitoring Teach back method: Used Time spent: 15 minutes Treatment Plan: Resume cardiac diet when medically feasible Daily wt monitoring Medically manage BG Goals: Nutrition Goals: intake > 75% meals and compliance w/ MNT Contact the dietitian via [employer] chat 8A-4P Saturday through Saturday or call extension [phone]. For s & s, the dietitian can be reached via pager [phone] from 9A-3P. Unable to respond to Boqii messages on Saturday & . [facility] 09-27-2023 Note ------ Attestation signed by Heidy Dee MD at 09/27/2023 11:54 AM As the teaching physician, I have personally performed or re-performed the history of present illness, physical exam and medical decision making activities of the encounter and verified the medical student's documentation. I made pertinent changes as necessary to ensure accurate documentation. Discussed with the medical student, agree with above. Patient seen and evaluated bedside, his son is at the bedside, patient is reporting no new symptoms, no chest pain, no shortness of breath. He is compliant with his medications. Physical exam: Elderly male, nontoxic appearance. Lungs: Clear to auscultation with no added sounds. A/P: # NSTEMI, extensive history of CAD status post CABG and PCI's. Currently on heparin drip, pending coronary angiogram today. ------ Hospital Medicine Daily Progress Note - 09/27/2023 10:26 AM; Room: 3184/3184- Admission: 09/26/2023 4:35 PM; Length of stay: 1 days THE HOSPITALIST TEAM PREFERS TO USE ubigrate CHAT FOR COMMUNICATION 7AM-7PM. IF I DO NOT RESPOND WITHIN 15 MINUTES, PLEASE PAGE ME/CALL THROUGH THE HUMAN RESOURCES MGR. FROM 7PM-7AM, PLEASE PAGE [phone](COVR) Code Status: Full Code Barriers to Discharge: Pending cardiac workup Expected Discharge Date: TBD Discharge Destination: home Overview Patient is seen for evaluation and management of NSTEMI. Juanjo Lizama is a 72 y/o male with a significant PMHx for HFpEF (NYHA class 3), coronary artery disease [s/p 5 vessel CABG (patient reports CABG performed in 1995), 7 stents], DM2, hyperlipidemia, peripheral vascular disease, 3rd degree heart block (s/p BiV BUSINESS DEVELOPMENT EXECUTIVE-D) that presented to OSH w/ c/o chest pain that radiated to left arm and jaw. Pain was described as centrally-located and pressure-like, and unrelieved by Nitroglycerin x3. Patient started on nitroglycerin drip which provided relief. Initial tropin was unremarkable, but repeat was elevated (2962). He was started on heparin and transferred to [facility]. Today, patient is examined at bedside, family present. Patient is resting comfortably in bed on 0.5L NC. He is not on a nitroglycerin drip. Most recent Troponin I of 3.05 down from 3.51. No significant overnight events. Patient denies SOB, chest pain, and N/V. Cardiology consulted. Echo pending. Angio planned. Physical Exam Visit Vitals BP 123/75 (BP Location: Right arm, Patient Position: Lying) Pulse 89 Temp 36.3 ???C (97.3 ???F) (Temporal) Resp 16 Intake/Output Summary (Last 24 hours) at 09/27/2023 1026 Last data filed at 09/27/2023 0646 Gross per 24 hour Intake 385.84 ml Output -- Net 385.84 ml Physical Exam Constitutional: Appearance: Normal appearance. HENT: Head: Normocephalic and atraumatic. Cardiovascular: Rate and Rhythm: Normal rate and regular rhythm. Heart sounds: Normal heart sounds. Pulmonary: Effort: Pulmonary effort is normal. Breath sounds: Normal breath sounds. Abdominal: Palpations: Abdomen is soft. Tenderness: There is no abdominal tenderness. Musculoskeletal: Cervical back: Normal range of motion. Right lower leg: No edema. Left lower leg: No edema. Skin: Findings: No erythema. Neurological: Mental Status: He is alert. Estimated body mass index is 27.44 kg/m??? as calculated from the following: Height as of this encounter: 1.702 m (5' 7 ). Weight as of this encounter: 79.5 kg (175 lb 3.2 oz). Active Inpatient Problems Principal Problem: NSTEMI (non-ST elevated myocardial infarction) ([facility]) Assessment and Plan #NSTEMI - Supplemental oxygen NC - DAPT (aspirin 81 mg, daily; and Plavix 75 mg, daily) - Metoprolol Succinate XL (150 mg, daily) - Rosuvastatin (40 mg, nightly) #HFrEF - Echo pending #CAD - Angiogram planned today #HTN #Diabetes - Insulin sliding scale - Goal blood sugar 140-180 #Hx bradycardia - s/p BUSINESS DEVELOPMENT EXECUTIVE-D Wounds: Wound 09/26/23 Other (comment) Toe (Comment which one) Left;Distal (Active) Date First Assessed/Time First Assessed: 09/26/23 1501 Present on Original Admission: Yes Primary Wound Type: (c) Other (comment) Location: (c) Toe (Comment which one) Wound Location Orientation: Left;Distal Wound Description (Comments): small ... Assessments 09/26/2023 7:37 PM Site Assessment Brown;Other (Comment) (scabbed over) Wound 09/26/23 Other (comment) Toe (Comment which one) Left;Distal (Active) Date First Assessed/Time First Assessed: 09/26/23 1701 Primary Wound Type: (c) Other (comment) Location: (c) Toe (Comment which one) Wound Location Orientation: Left;Distal Wound Description (Comments): scab Assessments 09/26/2023 7:37 PM Site Assessment Brown;Other (Comment) (scabbed over) VTE Prophylaxis: IV heparin Scheduled Meds ALPRAZolam, 0.5 mg, oral, TID aspirin, 81 mg, oral, Daily (more content not included)... [facility] 09-09-2023 Note [facility] Cardiology Clinic Note Chief Complaint: Patient here [...] disease) (CMS/HCC), and Third degree heart block (CMS/[facility]). Surgical History He has a past [...] PSYCH: appropriate mood, affect, and judgement. Investigations: Echocardiogram-[facility] Name: LANI LIZAMA Study Date: 01/25/2023 12:56 PM B/P: 138 mmHg/71 mmHg HR: Date of : 1950 Location: [facility] Height: 67 in. Age: 72 year(s) Patient Room : 3141 Weight: 171 lb. Gender: Male Patient Status: InPt BSA: 1.89 m2 Indication: Chest Pain Examination: Echocardiogram (Complete), Lumason Contrast Image Quality: Poor Patient Consent: Procedure explained to patient s p @ c 3 Conclusions Left Ventricle: The left ventricle is normal size. Global left connie (more content not included)... [facility] 05-07-2023 Note DC Cardiology Consul t Note Reason for visit: Complete heart block on event monitor, HFrEF 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%, atrial tachycardia 05/07/23 Patient is s/p BiV ICD. he feels much better and believes that he is gone from 4/0 to 7/10 with BUSINESS DEVELOPMENT EXECUTIVE. patient has got good device threshold. he [...] and hypertension. He was recently admitted [place] [facility] [place]. Had inpatient stress test and heart cath. Denies SOB but still having chest pain and has taken nitroglycerin a few times for relief. Had CT chest last week s/p discharge. 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 Medications were adjusted. I had [...] 75 mg ta (more content not included)... [facility] 01-30-2024 Evaluation note Encounter Date Diagnosis Assessment Notes Apr, Chronic HFrEF (heart failure with reduced ejection fraction) (ICD-10 - I50.22) [facility] Other 01-30-2024 NoteUT Cardiology Consult Note Reason [...] and hypertension. He was recently admitted to [facility] [place]. Had inpatient stress test and heart cath. Denies SOB but still having chest pain and has taken nitroglycerin a few times for relief. Had CT chest last week s/p discharge. 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 Medications were adjusted. I had [...] route. insulin detemir (Levemi (more content not included)...[facility]01-30-2024 NotePatient here for follow up echo. He is doing very well, as chest pain and palpitations have subsided. Taking bumex prn now and hasn't been swelling much. Denies SOB and lightheadedness. Review of Systems Musculoskeletal: Positive for arthritis, back pain, joint pain and myalgias. All other systems reviewed and are negative.[facility] 03-18-2023 NoteUT Cardiology Consult Note Reason [...] and hypertension. He was recently admitted to [facility] [place]. Had inpatient stress test and heart cath. Denies SOB but still having chest pain and has taken nitroglycerin a few times for relief. Had CT chest last week s/p discharge. 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 Medications were adjusted. I had [...] morning and at bedtim (more content not included)...[facility]12-18-2023 NotePatient here for 2 week follow up per Dr. Bishop. Metoprolol was increased to 100mg to decrease atrial tachycardia. Still gets random chest pain and palpitations. Lightheadedness has been better and has resolved. Denies SOB. Review of Systems Cardiovascular: Positive for chest pain and palpitations. Musculoskeletal: Positive for arthritis, back pain, joint pain and myalgias. All other systems reviewed and are negative.[facility] 03-12-2023 Evaluation note* Encounter Date Diagnosis [...] PAP-Jardiance was denied, pt given information [place] [facility] [place] instructed to apply order [...] hypertension material was printed on diony. 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 Mar, BMI 27.0-27.9,adult (ICD-10 - Z68.27) Eating healthy: tips to make it easier material was printed [facility] Chief Complaint: Patient here for follow up. Carotid US was done yesterday at [facility]. Says his HR has been elevated lately, around 119. Had his device interrogated a few days ago. Still has to take nitroglycerin at times for chest pain. HPI: Lani Lizama is a 72 y.o. male being seen in post hospital follow up Hospital course: And admitted to the hospital on 01/25 as a direct transfer from [facility], With worsening chest pain for the [...] disease) (CMS/HCC), and Third degree heart block (CMS/[facility]). Surgical History He has a past [...] Disp: 180 tablet, Rfl: (more content not included)...[facility]11-21-2023 NotePatient seen for wound check s/p [...] 4-6 weeks. 5. No driving for 1 month.[facility]11-14-2023 NoteBiV- ICD UPGRADE & RV LEAD EXTRACTION PROCEDURE NOTE DATE OF PROCEDURE: 02/12/2023 PERFORMING PHYSICIAN: Dr. Kevin Arteaga BUSINESS ECONOMIST: Dr Jamie Dupree CONSENT: Patient LOCATION: EP Lab PROCEDURE PERFORMED: 1. Implantation of Biventricular ICD ([employer]). 2. Explantation of previously implanted pacemaker generator ([employer]). 3. RV pacing lead extraction. 4. [...] catheterization revealed patent bypass grafts and worsening lime vessel disease. Event monitor revealed presence of [...] was still challenging. I then removed the [place] system and used a Aqua Access CS sheath over a 9F short sheath. [...] stable. COMPLICATIONS: None. IM (more content not included)...[facility]11-14-2023 NotePatient: Lani Lizama Procedure Information Date/Time: 02/12/23 1100 Procedure: Biventricular ICD upgrade - Upgrade PPM to Bi-V- possibly to AICD Location: [facility] TEAM PSYCHOLOGIST 1 / [facility] (Cath) Providers: Kevin Arteaga MD Clinical information reviewed: Allergies Meds Physical Exam Airway Mallampati: III Cardiovascular - normal exam Dental Pulmonary - normal exam Abdominal - normal exam Anesthesia Plan ASA 3 other (Conscious sedation) Anesthetic plan and risks discussed with patient. Use of blood products discussed with patient who consented to blood products. Plan discussed with attending. Additional [facility] [id number] Evaluation note* Encounter Date Diagnosis Assessment Notes Treatment Notes Treatment Clinical Notes Jan, Chronic HFrEF (heart failure with reduced ejection fraction) (ICD-10 - I50.22) [facility] Other 11-03-2023 NoteUT Cardiology Consult Note Reason [...] and hypertension. He was recently admitted to [facility] [place]. Had inpatient stress test and heart cath. Denies SOB but still having chest pain and has taken nitroglycerin a few times for relief. Had CT chest last week s/p discharge. 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 Medications were adjusted. I had [...] artery stenosis Coronary artery disease Diabetes mellitus ([facility]/HCC) Hyperlipidemia Hypertension PVD (peripheral vascular disease) ([facility]) Third degree heart block ([facility]) PSH: Past Surgical History: Procedure Laterality [...] tablet Take 1 tablet (more content not included)...[facility]10-30-2023 NoteOccupational Therapy Occupational Therapy Evaluation Patient [...] BPH, anxiety, PVD: 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 Hme meds: ASA, Plavix, Coreg, Jardiance, Imdur 30, Lisinopril 2.5, Lovasatatin 40mg, protonix. Pt and son do not recall any other statins or reaction to statins. 01/25/23 transferred from [facility] for 2 months of worsening [...] first diagonal, SVG to OM --01/25/23 NSTEMI: [facility] 01/25: stable CAD (4/4 bypass grafts [...] Level of Function Prior Function Level of [place]: Independent with ADLs and functional transfers, Independent [...] taking off regular lo (more content not included)...[facility]10-30-2023 NoteHospital Medicine Discharge Summary Final Discharge Diagnosis: NSTEMI (non-ST elevated myocardial infarction) (CMS/HCC) Non-ischemic cardiomyopathy with EF 10% Admission Diagnosis: NSTEMI (non-ST elevated myocardial infarction) (CMS/HCC) [I21.4] Hospital course: And admitted to the hospital on 01/25 as a direct transfer from [facility], With worsening chest pain for the [...] 03/07/2023 9:00 AM Pinky Bishop MD MARCELINO rAmas Your medication list START taking these medications [...] Medications These medications were sent to [facility] [address] [place] [address] [facility] [place] [address], [facility] [address] dapagliflozin propanediol 10 mg isosorbide mononitrate ER [...] 10*3/uL 141* 163 Chemistry: (more content not included)...[facility]10-30-[address] Arteaga is planning upgrade to BI-V ICD [facility]23 NoteUTP CARDIOLOGY INPATIENT PROGRESS NOTE Reason [...] -- -- 92 17 97 % -- 01/27/232054 120/74 -- -- 80 17 98 % [...] MENJIVAR graft. There is (more content not included)...[facility]10-29-2023 [facility] Medicine Daily Progress Note - 01/27/2023 12:00 PM; Room: [address] [place] [address] Admission: 01/25/2023 12:05 PM; Length of stay: 2 days THE HOSPITALIST TEAM PREFERS TO USE ubigrate CHAT FOR COMMUNICATION 7AM-7PM. IF I DO NOT RESPOND WITHIN 15 MINUTES, PLEASE PAGE ME/CALL THROUGH THE HUMAN RESOURCES MGR. FROM 7PM-7AM, PLEASE PAGE [phone](COVR) Code Status: Full Code Discharge Destination: home [...] Principal Problem: NSTEMI (non-ST elevated myocardial infarction) ([facility]) Assessment and Plan NSTEMI coronary artery [...] for: PREALBUMIN, TSH, T3FREE, FREET4, CORTISOL, FEV1, NJK6VUN, DLCO, RVSP, HDL, LDL No results found for: TNTAJNJH11, IRON, TIBC, C3, C4, HARISH, CANCA, ASO, PSA, CEA, CA125, CA199, AFP, CA153 Imaging Cardiac catheterization PROCEDURE PHYSICIAN: Luisito Foreman MD . Indications: Lani Lizama is a 72 y.o. male with prior complex cardiac history including bypass surgery and multiple stenting procedures in the past. Last cardiac catheterization in December 2021 at an outside institution showed patent bypass grafts. (more content not included)... [facility]10-29-2023 NoteUTP CARDIOLOGY INPATIENT PROGRESS NOTE Reason [...] Value Ventricular Rate 91 Atrial Rate 91 IA Interval 162 QRS DURATION 180 QT Interval 416 QTC CALCULATION(BAZETT) 511 P [place] 52 R-[place] -41 T Wave [place] 109 Impression Atrial-sensed ventricular-paced rhythm Abnormal ECG [...] Due to suboptimal i (more content not included)...[facility] - 01/26/2023 12:37 PM; Room: [address] [place] [address] Admission: 01/25/2023 12:05 PM; Length of stay: 1 days THE HOSPITALIST TEAM PREFERS TO USE ubigrate CHAT FOR COMMUNICATION 7AM-7PM. IF I DO NOT RESPOND WITHIN 15 MINUTES, PLEASE PAGE ME/CALL THROUGH THE HUMAN RESOURCES MGR. FROM 7PM-7AM, PLEASE PAGE [phone](COVR) Code Status: Full Code Discharge Destination: home [...] Principal Problem: NSTEMI (non-ST elevated myocardial infarction) ([facility]) Assessment and Plan NSTEMI coronary artery [...] for: PREALBUMIN, TSH, T3FREE, FREET4, CORTISOL, FEV1, DEW0CEV, DLCO, RVSP, HDL, LDL No results found for: PACZXSQU49, IRON, TIBC, C3, C4, HARISH, CANCA, ASO, PSA, CEA, CA125, CA199, AFP, CA153 Imaging Cardiac catheterization PROCEDURE PHYSICIAN: Luisito Foreman MD . Indications: Lani Lizama is a 72 y.o. male with prior complex cardiac history including bypass surgery and multiple stenting procedures in the past. Last cardiac catheterization in December 2021 at an outside institution showed patent bypass grafts. He presented to the [facility] with symptoms of worsening chest pain over the past 2 months. He was admitted and had rising cardiac troponin. He was referred (more content not included)...[facility]10-28-2023 NoteAdult Nutrition Assessment: Name: Lani Lizama Date: 1950 Date of Visit: 01/26/23 Admission Dx: NSTEMI (non-ST elevated myocardial infarction) ([facility]) [I21.4] Reason for assessment: high risk (HF) Information obtained from: patient, medical record, and nursing Past Medical History: Diagnosis Date Carotid artery stenosis Coronary artery disease Diabetes mellitus ([facility]) Hyperlipidemia Hypertension PVD (peripheral vascular disease) ([facility]) Third degree heart block ([facility]) Current Medications: ALPRAZolam, 0.5 mg, oral, [...] compliance w/ MNT Contact the dietitian via [employer] chat 8A-4P Saturday through Saturday or call extension [phone]. For weekends & holidays, the dietitian can be reached via pager [phone] from 9A-3P. Unable to respond to [employer] chat messages on Saturday & s.[facility]10-28-2023 Note Attestation signed by Marry Avendano [...] upgrade -optimize GDMT; consider Entresto -Transition to [facility] on discharge Mickie Plaza MD Senior Examiner Pgy4 [facility]10-27-2023 NotePatient: Lani Lizama Procedure Information Date/Time: 01/25/23 1900 Procedures: Coronary angiography Coronary bypass graft study Location: [facility] TEAM PSYCHOLOGIST 3 / [facility] (Cath) Providers: Luisito Foreman MD Clinical information reviewed: Allergies Meds [...] products. Plan discussed with attending. Additional Equipment RequestsPro[facility]ica [facility]10-27-2023 Note Hospital Medicine History and Physical 01/25/2023 10:53 AM THE HOSPITALIST TEAM PREFERS TO USE ubigrate CHAT FOR COMMUNICATION 7AM-7PM. IF I DO NOT RESPOND WITHIN 15 MINUTES, PLEASE PAGE ME/CALL THROUGH THE HUMAN RESOURCES MGR. FROM 7PM-7AM, PLEASE PAGE [phone](COVR) Chief Complaint No chief complaint on file. History of Present Illness Lani Lizama is an 72 y.o. male who came from [facility] with NSTEMI and troponin of 7000. Patient has a history of CABG and 7 stents. For the last few weeks he has had intermittent chest pain that NTG does relieve. He did have a syncopal episode 3 weeks ago[address] He saw Dr. Bishop on 01/17 and his lisinopril was decreased. Yesterday he had severe chest pain and went to [place] ER. Patient was admitted to [place] and initial troponin was negative but then [...] edema associated with type 1 diabetes mellitus ([facility]) 10/12/2022 Gastroesophageal reflux disease 03/02/2022 Increased immunoglobulin 03/02/2022 Irritable bowel syndrome 03/02/2022 Mixed hyperlipidemia 03/02/2022 Nausea 03/02/2022 Overweight with body mass index (BMI) 25.0-29.9 03/02/2022 Right lower quadrant abdominal pain 03/02/2022 Spondylosis of lumbar spine 03/02/2022 Stage 3 chronic kidney disease ([facility]) 03/02/2022 Stenosis of abdominal aorta 03/02/2022 History of coronary artery bypass surgery 11/16/2019 Monoclonal gammopathy 07/28/2018 Type 2 diabetes mellitus without complication ([facility]) 06/03/2012 Coronary atherosclerosis 09/19/2011 Type 1 diabetes mellitus ([facility]) 09/19/2011 Essential hypertension 09/19/2011 AV block, 3rd degree ([facility]) 03/21/2022 Assessment and Plan NSTEMI - transfer from [place] - will continue heparin drip - cardiology has been consulted and plan to proceed with cardiac catherization today Syncope - patient did have his PM interrogated in [place] Acute renal failure on CKD 3b - in review of chart it looks like his Cr is 1.5 - 1.9 - 2.23 today at [place] - will gently hydrate 0.9NS @ 50 ml/hr Coronary atherosclerosis - CATH 09/2018 bypass grafts patent; mild ISR CATH 12/2021. 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 Essential hypertension - on norvasc Hyperlipidemia [...] during this hospital stay (more content not included)...[facility]10-19-2023 [facility] Chief Complaint: [...] artery stenosis, Coronary artery disease, Diabetes mellitus ([facility]), Hyperlipidemia, Hypertension, PVD (peripheral vascular disease) ([facility]), and Third degree heart block (CMS/HCC). Surgical [...] in the morning., Disp: , Rfl: HYDROcodone-acetaminophen ([place]) 5-325 mg tablet, TAKE 1 TABLET BY [...] 2+ bilaterally. No rash/sk (more content not included)...[facility] 01-07-2023 Evaluation note* Encounter Date Diagnosis [...] nurse practitioner for DM management. Dec, Rigo diehl kid w cr kid I-IV [...] Continue statins. Monitor LFTs and lipid profile. [facility] Other 10-06-2023 Evaluation note* Encounter Date Diagnosis Assessment Notes Treatment Notes Treatment Clinical Notes Dec, Ground glass opacity present on imaging of lung (ICD-10 - R91.8) CT: RUL, RML - 12/2022Dec, Pulmonary nodule (ICD-10 - R91.1) CT: 7mm RML nodule - 12/2022 [facility] Other 10-03-2023 Evaluation note* Encounter Date Diagnosis Assessment Notes Treatment Notes Treatment Clinical Notes Dec, Stage 3b chronic kidney disease (ICD-10 - N18.32) [facility] Other 10-02-2023 Evaluation note* Encounter Date Diagnosis [...] risk for cerebrovascular and cardiovascular disease. 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 Advised low phosphorus diet. [facility] Other 03-30-2023 Evaluation note* Encounter Date Diagnosis [...] are reviewed at the office visit. May, retirement (current) use of insulin (ICD-10 - Z79.4) [...] (ICD-10 - Z12.5) Yearly PSA and ABDELRAHMAN [facility] Other 03-28-2023 Evaluation note* Encounter Date Diagnosis [...] 2. Blood glucose levels stable. According to [employer] cgm download 06/13/2022- 3: Average glucose 190. [...] hypertension material was printed on diony. 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 28 May, 2022 BMI 27.0-27.9,adult (ICD-10 - Z68.27) Eating healthy: tips to make it easier material was printed [facility] Other 02-25-2023 Evaluation note* Encounter Date Diagnosis Assessment Notes Treatment Notes Treatment Clinical Notes May, Abnormality of lung on CXR (ICD-10 - R91.8) [facility] Other 12-20-2022 Evaluation note* Encounter Date Diagnosis [...] 2. Blood glucose levels stable. According to [employer] cgm download 03/07/2022-03/20/20 22: Average glucose 144. Above 250-0%, >180- 15%, 70-180-85%, <70-0%, <54-0%. CV 24.3%. Reviewed download with pt, no incidence of hypoglcyemia noted. Glucose rise between 12-6pm. D/t current shortage of ozempic, recommend pt reduce dose to 0.5mg once weekly until shipment recieved from [facility] [place], then increase to 1mg once weekly. Reviewed [...] hypertension material was printed on diony. Mar, retirement current use of insulin (ICD-10 - Z79.4) Mar, Hyperlipidemia (ICD-10 - E78.5) High cholesterol material was printed 06/2021 ldl 48- on statin. Mar, BMI 26.0-26.9,adult (ICD-10 - Z68.26) Eating healthy: tips to make it easier material was printed 9 pound weight loss from last visit, continue with weight loss efforts [facility] Other 11-10-2022 Evaluation note* Encounter Date Diagnosis Assessment Notes Treatment Notes Treatment Clinical Notes Jan, Diabetes mellitus with chronic kidney disease (ICD-10 - E11.22) [facility] Other 10-19-2022 Discharge summary Author Gagan Shahid [facility] January 17, 2022 3:02pm Note Date/Time January 17, 2022 3 :02pm [facility] [address] [place] [address] Discharge Summary Signed Patient: Lani Lizama MR#: [id number] : 1950 Acct:[id number] Age/Sex: 71 / M Adm Date: 2 Loc: Room: [address] [place] [address]: Gagan Shahid DO Copies to: DO Gagan Hudson DO~ Providers Date of Discharge: 01/17/22 Discharging [...] thought this to be indigestion/GERD in the technology 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 Cardiac catheterization was undergone on 01/16/2022 showing [...] levels as before. DISCHARGE INSTRUCTIONS FOR CARDIAC TEAM PSYCHOLOGIST PHONE NUMBER OF YOUR PHYSICIAN: [phone] PROCEDURE: Heart Cath The following instructions have [...] cold, numb, blue or white, call the aircraft painter immediately. 4. ACTIVITY: You are advised to [...] bottle, follow the instructions on the bottle. [facility] is not responsible for incorrect prescription [...] signed by Gagan Shahid DO> 01/17/22 [address] [facility] Work Phone: [phone] 422-322710-19-2022 Progress note Author Luis Alfredo Borges [facility] January 17, 2022 11:47am Note Date/Time January 17, 2022 1 1:47am [facility] [address] [place] [address] Cardiology Progress Note Signed Patient: Lani Lizama MR#: [id number] : 1950 Acct:[id number] Age/Sex: 71 / M Adm Date: 2 Loc: Room: [address] [place] [address] Type: ADM IN Attending Dr: Gagan Shahid [...] is also notable worsening of the patient's lime occlusive coronaryheart disease particularly in the microcirculation [...] daily 3. 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 We willschedule him 1 follow-up visit in [facility] for left wrist check and also for counseling and reinforcement/referral to phase 2 monitored cardiac rehabilitation which the patient desires to perform in [place]. 4. Instructed the patient that he can [...] by Luis Alfredo Borges MD> 01/17/22 [address] [facility] Work Phone: [phone] 542-704310-18-2022 Progress note Author Gagan Shahid [facility] January 16, 2022 4:09pm Note Date/Time January 16, 2022 4 :09pm [facility] [address] [place] [address] Hospitalist Progress Note Signed Patient: Lani Lizama MR#: [id number] : 1950 Acct:[id number] Age/Sex: 71 / M Adm Date: 2 Loc: Room: [address] [place] [address] Type: ADM IN Attending Dr: Gagan Shahid [...] To Pharmacy [facility] 01/16/23 14:15 .PHACONSULT PRN ALIA.Pharmacy Consult Protocol Multivitamins 1 tab 01/16/22 09:00 01/16/22 08:49 Multivitamin 1 Tab Tablet PO 01/16/23 08:59 1 tab DAILY RICARDA Administration Omeprazole 20 mg 01/16/22 09:00 10/18/22 08:49 Omeprazole 20 Mg Capsule.Dr PO 01/16/23 [...] <Electronically signed by Gagan Shahid DO> 01/16/22 [address] [facility] Work Phone: [phone] [facility] Consult note Author Luis Alfredo Borges [facility] January 16, 2022 10:24am Note Date/Time January 16, 2022 1 0:24am [facility] [address] [place] [address] Cardiology Consult Note Signed Patient: Lani Lizama MR#: [id number] : 1950 Acct:[id number] Age/Sex: 71 / M Adm Date: 2 Loc: Room: [address] [place] [address] Type: ADM IN Attending Dr: Gagan Shahid [...] well as history of PCI done here [facility] per Dr. Saldaña in May 2020 [...] he activated EMS and was taken to [facility] emergency department. There the patient was [...] Lymph # (Auto) 1.0 1.6 (1.00-4.8) x10E3/uL Curry # (Auto) 0.4 0.8 (0.0-0.8) x10E3/uL Eos [...] nonspecific abnormality, ST segment, and/or T wave [place], pacemaker, normal Normal tracing: no change compared [...] by Luis Alfredo Borges MD> 01/16/22 [address] [facility] Work Phone: [phone] 414-233010-17-2022 History and physical note Author Gagan Shahid [facility] January 15, 2022 6:56pm Note Date/Time January 15, 2022 6 :02pm [facility] [address] [place] [address] Hospitalist H&P Signed Patient: Lani Lizama MR#: [id number] : 1950 Acct:[id number] Age/Sex: 71 / M Adm Date: 2 Loc: Room: [address] [place] [address] Type: ADM IN Attending Dr: Gagan Shahid [...] need for cardiovascular evaluation he was [facility] for further management and cardiology consultation. [...] % (Auto) 13.8 % (.) 01/15/22 15:00 Curry % (Auto) 6.1 % (.) 01/15/22 15:00 Eos % (Auto) 0.9 % (.) 01/15/22 15:00 Baso % (Auto) 0.5 % (.) 01/15/22 15:00 Neut # (Auto) 5.6 x10E3/uL (1.8-7.7) 01/15/22 15:00 Lymph # (Auto) 1.0 x10E3/uL (1.00-4.8) 01/15/22 15:00 Curry # (Auto) 0.4 x10E3/uL (0.0-0.8) 01/15/22 15:00 [...] 01/15/22 15:00 Documented By: Gagan Shahid DO 10/ Signed By: <Electronically signed by Gagan Shahid, > 01/15/22 [address] [facility] Work Phone: [phone] 341-357609-19-2022 Evaluation note* Encounter Date Diagnosis Assessment Notes [...] Blood glucose levels above improved. According to [employer] cgm download 12/05/2021- 2: Average glucose 119. [...] hypertension material was printed on diony. Nov, retirement current use of insulin (ICD-10 - Z79.4) Nov, Hyperlipidemia (ICD-10 - E78.5) High cholesterol material was printed 06/2021 ldl 48- on statin. Nov, BMI 27.0-27.9,adult (ICD-10 - Z68.27) Eating healthy: tips to make it easier material was printed 22 pound weight loss from last visit, continue with weight loss efforts [facility] Other 07-22-2022 Miscellaneous Notes* Telephone Encounter - Vee Day - 10/20/2021 9:42 AM EDT New CBC order. 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 BMI 28.0-28.9,adult BPH associated with nocturia Cholelithiasis Controlled diabetes mellitus with diabetic polyneuropathy, with long-term current use of insulin Diabetic retinopathy Elevated serum immunoglobulin free light chains GERD (gastroesophageal reflux disease) IBS (irritable bowel syndrome) Lumbar spondylosis MGUS (monoclonal gammopathy of unknown significance) Mixed hyperlipidemia Nausea Obesi (more content not included)...[facility]: Result Comment: Electronically Signed By: FRANKIE LEMUS, Gagan Edgar.oniel\Date and Time Signed: 10/17/21 12:19 [id number] Evaluation note* Encounter Date Diagnosis Assessment Notes [...] Blood glucose levels above improved. According to [employer] cgm download 07/04/2021-07/17/2021 : Average glucose 146. [...] hypertension material was printed on diony. Jun, retirement current use of insulin (ICD-10 - Z79.4) Jun, BMI 30.0-30.9,adult (ICD-10 - Z68.30) Eating healthy: tips to make it easier material was printed see above Jun, Bradycardia (ICD-10 - R00.1) asymptomatic- f/u with cardiology has upcoming apt. If symptomatic i.e. light headed notify sooner [facility] Other 03-21-2022 Evaluation note* Encounter Date Diagnosis Assessment Notes Treatment Notes Treatment Clinical Notes May, Gastro-esophageal reflux disease with esophagitis, without bleeding (ICD-10 - K21.00) [facility] Other 03-08-2022 Evaluation note* Encounter Date Diagnosis [...] His MBD parameters are within the goal. [facility] Other 02-21-2022 Evaluation note* Encounter Date Diagnosis Assessment Notes Treatment Notes Treatment Clinical Notes May, Diabetes mellitus with chronic kidney disease (ICD-10 - E11.22) [facility] Other 01-10-2022 Evaluation note* Encounter Date Diagnosis Assessment Notes Treatment Notes Treatment Clinical Notes Apr, Type 2 diabetes mellitus with hyperglycemia (ICD-10 - E11.65) [facility] Other 01-10-2022 Evaluation note* Encounter Date Diagnosis [...] Blood glucose levels above improved. According to [employer] cgm download 03/28/2021-04/10/19 22: Average glucose 167. [...] was also given rx assist [place] [facility] [place] not qualify [place] BI/jardiance. Ozempic will increase to 1mg once weekly. Apr, Hyperlipidemia (ICD-10 - E78.5) High cholesterol material was printed 07/2020 ldl 64 trig 207- on statin. Apr, HTN (hypertension) (ICD-10 - I10) About hypertension material was printed on diony. 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 [facility] Other 10-05-2021 Evaluation note* Encounter Date Diagnosis [...] above target with increased variability. According to [employer] cgm download 12/07/2020-01/03/2021: Average glucose 135. Above [...] hypertension material was printed on diony. Dec, retirement current use of insulin (ICD-10 - Z79.4) Dec, BMI 31.0-31.9,adult (ICD-10 - Z68.31) Eating healthy: tips to make it easier material was printed 12 pound weight loss from last visit, continue with weight loss efforts Dec, Bradycardia (ICD-10 - R00.1) Pt asymptomatic. Notified aircraft painter Dr. Velazquez. Pt has apt on Saturday next week. [facility] Other Chief complaint+Reason for visit Narrative* Chief Complaint 4 month follow up Reason for Visit BMI 28.0-28.9,adult Dietary counseling and surveillance HTN (hypertension) Chronic HFrEF (heart failure with reduced ejection fraction) Chronic kidney disease [id number] HTN (hypertension) Hypercholesterolemia Ischemic cardiomyopathy Pulmonary nodule Type 2 diabetes mellitus with hyperglycemia [facility] Work Phone: Evaluation + Plan note No data available for this section General Surgery Luis Enrique Evaluation noteNo InformationNortHahnemann [facility] Other Evaluation note* Diagnosis Monoclonal gammopathy- Primary Monoclonal paraproteinemia documented in this encounter [facility] Diagnosis Onset Date Resolution Status Non-ST elevation myocardial infarction (NSTEMI), initial care episode acute [facility] Work Phone: Evaluation noteNo assessment information available [facility] Work Phone: Evaluation note* Diagnosis Onset Date Resolution Status BMI 26.0-26.9,adult acute Dietary counseling and surveillance acute DM2 (diabetes mellitus, type 2) acute HLD (hyperlipidemia) acute HTN (hypertension) acute [facility] Work Phone: Evaluation note* Diagnosis Onset Date Resolution Status BMI 26.0-26.9,adult acute Dietary counseling and surveillance acute DM2 (diabetes mellitus, type 2) acute HLD (hyperlipidemia) acute HTN (hypertension) acute Chronic HFrEF (heart failure with reduced ejection fraction) acute CKD (chronic kidney disease) stage 3, GFR 30-59 ml/min acute HLD (hyperlipidemia) acute [id number] acute Secondary hyperparathyroidism acute Type 2 diabetes 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 acute [facility] Work Phone: Evaluation note* Diagnosis Onset Date Resolution Status Dietary counseling and surveillance acute HTN (hypertension) acute Chronic HFrEF (heart failure with reduced ejection fraction) acute CKD (chronic kidney disease) stage 3, GFR 30-59 ml/min acute [id number] acute Secondary hyperparathyroidism acute Type 2 diabetes 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 acute Chronic HFrEF (heart failure with reduced ejection fraction) acute Chronic kidney disease acute HTN (hypertension) acute Hypercholesterolemia acute Ischemic cardiomyopathy acut e Pulmonary nodule acute Type 2 diabetes mellitus with hyperglycemia acute Medicare annual wellness visit, subsequent noneactive Screening PSA (prostate specific antigen) noneactive [facility] Work Phone: evaluation note* Diagnosis Onset Date Resolution Status Chronic HFrEF (heart failure with reduced ejection fraction) acute Chronic kidney disease acute HTN (hypertension) acute Hypercholesterolemia acute Ischemic cardiomyopathy acut e Pulmonary nodule acute Type 2 diabetes mellitus with hyperglycemia acute Medicare annual wellness visit, subsequent noneactive Screening PSA (prostate specific antigen) noneactive BMI 28.0-28.9,adult acute Dietary counseling and surveillance acute HTN (hypertension) acute [facility] Work Phone: Evaluation note* Diagnosis Onset Date Resolution Status BMI 28.0-28.9,adult acute Dietary counseling and surveillance acute HTN (hypertension) acute Chronic HFrEF (heart failure with reduced ejection fraction) acute Chronic kidney disease acute [id number] acute HTN (hypertension) acute Hypercholesterolemia acute Ischemic cardiomyopathy acut e Pulmonary nodule acute Type 2 diabetes mellitus with hyperglycemia acute [facility] Work Phone: history general Narrative - Reported* Type Description [...] 11-25-16 Hospitalization History HEART STENT PLACED 03-20 [facility] Other [facility] general Narrative - ReportedNoDimensionU (formerly [facility] [facility]) Other Hislozq general Narrative - Reported* Type Description Date [...] 11-25-16 Hospitalization History HEART STENT PLACED 03-20 [facility] Other history general Narrative - Reported* Type [...] 11-25-16 Hospitalization History HEART STENT PLACED 03-20 [facility] Other [employer] general Narrative - Reported* Type Description Date [...] 11-25-16 Hospitalization History HEART STENT PLACED 03-20 [facility] Other [employer] general Narrative - Reported* Type Description Date [...] PLACED 03-20 18 Hospitalization History SEE ABOVE [facility] Other History general Narrative - ReportedNoSerus Other History general Narrative - Reported* Type [...] PLACED 03-20 18 Hospitalization History SEE ABOVE [facility] Other Hise[facility] general Narrative - Reported* Type Description Date [...] STENT PLACED 03-20 Hospitalization History SEE ABOVE [facility] Other History general Narrative - Reported* Type [...] STENT PLACED 03-20 Hospitalization History SEE ABOVE [facility] Other Hiskgwl general Narrative - Reported* Type Description Date [...] History GGO and Pulmonary nodules Medical History [place] 01/21 Medical History Defibrilator 02/21 Surgical History [...] 03-20 Hospitalization History SEE ABOVE Hospitalization History [place] 01[place]21 [facility] Other Hospital Discharge instructions No data available for this section [facility] Discharge instructions Additional Instructions Monitor glucose levels as before. DISCHARGE INSTRUCTIONS FOR CARDIAC TEAM PSYCHOLOGIST PHONE NUMBER OF YOUR PHYSICIAN: [phone] PROCEDURE: Heart Cath The following instructions have [...] cold, numb, blue or white, call the aircraft painter immediately. 4. ACTIVITY: You are advised to [...] bottle, follow the instructions on the bottle. [facility] is not responsible for incorrect prescription information provided by the patient during their visit. Do not stop your medications without consulting your health care provider. Please take the list with you to your next doctor's appointment. [facility] Work Phone: Hospital Discharge instructionsAmbulatory Orders* Referral to Podiatry Location: None Selected [facility] Work Phone: Progress note No data available for this section General Surgery [facility] Summary Purpose Family History Relationship Condition Age at Onset Recorded Date/T maximo Not Specified Heart disease Unknown Relationship Condition Age at Onset Recorded Date/T maximo brother Malignant neoplasm Unknown Diabetes mellitus Unknown Heart disease Unknown daughter Crohn's disease Unknown father Unknown Malignant neoplasm Unknown family member Unknown Not Specified Diabetes mellitus Unknown Unknown Relationship Condition Age at Onset Recorded Date/T maximo brother Malignant neoplasm Unknown Diabetes mellitus Unknown Heart disease Unknown daughter Crohn's disease Unknown father Unknown Malignant neoplasm Unknown family member Unknown mother Diabetes mellitus Unknown Unknown Advance Directives Advance [...] stage 3, GFR 30-59 ml/min HLD (hyperlipidemia) [id number] Secondary hyperparathyroidism Type 2 diabetes mellitus with diabetic chronic kidney disease 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 6 month follow up MEDICARE WELLNESS Reason for Visit Dietary counseling a nd surveillance HTN (hypertension) Chronic HFrEF (heart failure with reduced ejection fraction) CKD (chronic kidney disease) stage 3, GFR 30-59 ml/min [id number] Secondary hyperparathyroidism Type 2 diabetes mellitus with diabetic chronic kidney disease Chronic HFrEF (heart failure with reduced ejection fraction) Chronic kidney disease HTN (hypertension) Hypercholesterolemia Ischemic cardiomyopathy Pulmonary nodule Type 2 diabetes mellitus with hyperglycemia Medicare annual wellness visit, subsequent Screening PSA (prostate specific antigen) Chief Complaint MEDICARE WELLNESS Reason for Visit Chronic HFrEF (heart failure with reduced ejection fraction) Chronic kidney disease HTN (hypertension) Hypercholesterolemia Ischemic cardiomyopathy Pulmonary nodule Type 2 diabetes mellitus with hyperglycemia Medicare annual wellness visit, subsequent Screening PSA (prostate specific antigen) BMI 28.0-28.9,adult Dietary counseling and surveillance HTN (hypertension) Additional Source Comments (unrecognized sect ion and content) No Status Records FoundNo Status Records FoundNo Status Records FoundNo Status Records FoundNo Status Records FoundNo Status Records FoundNo Status Records Found INFORMATION SOURCE (unrecogn ized section and content) DATE CREATED AUTHOR 11/29/2018 [facility] DATE CREATED AUTHOR AUTHOR'S ORGANIZ ATION 10/20/2021 [facility] DATE CREATED AUTHOR AUTHOR'S ORGANIZ ATION 10/25/2021 [facility] DATE CREATED AUTHOR AUTHOR'S ORGANIZ ATION 08/13/2022 [facility] DATE CREATED AUTHOR AUTHOR'S ORGANIZ ATION 05/16/2023 [facility] DATE CREATED AUTHOR AUTHOR'S ORGANIZ ATION 11/10/2023 [facility] EPIC DATE CREATED AUTHOR AUTHOR'S ORGANIZ ATION 11/14/2023 [facility] REASON FOR VISIT (unrecogniz ed section and content) Reason Comments Lab Orders Care Team (unrecognized sect ion and content) Team Status: Active Member Role Status Dates Harley Crespo DO Primary Care Provider Active Team Status: Active Member Role Status Dates Harley Crespo DO Primary Care Provider Active Start: September 26, 2023 Luis Alfredo Reyez Attending Provider Active Start: September 26, 2023 Team Status: Active Member Role Status Dates Harley Crespo DO Primary Care Provide r, Attending Provider Active Start: September 26, 2023 Team Status: Inactive Member Role Status Dates Harley Crespo DO Primary Care Provider Active Start: October 17, 2023 End: October 17, 2023 Arlen Kwong APRN Attending Provider Active Start: October 17, 2023 End: October 17, 2023 Team Status: Inactive Member Role Status Dates Harley Crespo DO Primary Care Provide r, Attending Provider Active Start: December 12, 2023 End: December 12, 2023 Team Status: Active Member Role Status Dates Harley Crespo DO Primary Care Provider Active Team Status: Inactive Member Role Status Anna Crespo DO Primary Care Provide r, Attending Provider Active Start: August 12, 2023 End: August 12, 2023 Team Status: Active Member Role Status Anna Crespo DO Primary Care Provide r, Attending Provider Active Start: August 27, 2023 Team Status: Active Member Role Status Dates Harley Crespo DO Primary Care Provider Active Start: September 26, 2023 Luis Alfredo Reyez Attending Provider Active Start: September 26, 2023 Team Status: Inactive Member Role Status Dates Harley Crespo DO Primary Care Provider Active Start: October 17, 2023 End: October 17, 2023 Arlen Kwong APRN Attending Provider Active Start: October 17, 2023 End: October 17, 2023 Team Status: Active Member Role Status [...] July 02, 2023 End: July 02, 2023 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 Start Date End Date Harley Crespo DO [address] [place] [address] PCP - General Internal Medicine 07/18/18 Team Status: Inactive Member Role Status Dates Harley Crespo DO Primary Care Provider Active Gagan Shahid DO Admit Provider, Attending Provider Active Team Status: Active Member Role Status Dates Harley Crespo DO Primary Care Provider Active Ryan Garrett APRN PRODUCER-C Active OUSMANE MilliganC Active Arlen Kwong APRN Attending Provider Active Team Status: Inactive Member Role Status Dates Arlen Kwong APRN Attending Provider Active Start: March 12, 2023 End: March 12, 2023 Team Status: Inactive Member Role Status Dates Harley Crespo DO Primary Care Provider Active Start: March 12, 2023 End: March 12, 2023 Ryan Garrett APRN PRODUCER-C Active Sta rt: March 12, 2023 End: March 12, 2023 Valerie Gallegos PA-C Active St art: March 12, 2023 End: March 12, 2023 Arlen Kwong APRN Attending Provider Active Start: March 12, 2023 End: March 12, 2023 Team Status: Inactive Member Role Status Dates Harley Crespo , Attending Provider Active Sta rt: May 03, 2023 End: May 03, 2023 Team Status: Active Member Role Status Dates Harley Crespo , DO Primary Care Provide r, Attending Provider Active Start: September 26, 2023 Team Status: Inactive Member Role Status Dates Harley Crespo , DO Primary Care Provide r, Attending Provider Active Start: December 12, 2023 End: December 12, 2023 Source Comments (unrecognize d section and content) In the event this informatio n is protected by the Federal Confidentiality of Alcohol and Drug Abuse Patient Records regulations: The Federal rules restrict any use of the information to criminally investigate or prosecute any alcohol or drug abuse patient.[facility] Goals (unrecognized section and content) Goals [...] BE BASED ON THE PRIMARY CLINICAL RECORDS. [employer] [facility]. provides no warranty or guarantee of the accuracy or completeness of information in this document.
[2023-12-30 08:40] LABS: Hematocrit 45.2 % (42.0-54.0); Hemoglobin 14.8 g/dL (14.0-18.0); Mean Corpuscular HGB Conc 32.7 g/dL (29.9-35.2); Mean Corpuscular Volume 91.7 fL (80.0-94.0); Mean Platelet Volume 9.3 fL (9.5-13.5); Platelet Count 193 10^3/uL (150-450); Red Blood Count 4.93 10^6/uL (4.70-6.10); Red Cell Distribution Width 14.3 % (11.0-15.0); White Blood Count 8.7 10^3/uL (4.0-11.0)
[2023-12-30 08:49] LABS: Creatinine Urine Random 85.11 mg/dL (20.00-300.00); Protein Creatinine Ratio Urine 0.32; Total Protein Urine Random 26.9 mg/dL (<=11.9)
[2023-12-30 09:47] LABS: Albumin Level 3.8 g/dL (3.4-5.0); Anion Gap 10.8; BUN Creatinine Ratio 13.8; Calcium 9.9 mg/dL (8.5-10.1); Carbon Dioxide 27.9 mmol/L (21.0-32.0); Chloride 103 mmol/L (98-107); Estimated GFR (African America 38 (>=60); Estimated GFR (Non-African Ame 31 (>=60); Glucose 207 mg/dL (74-106); Magnesium 2.1 mg/dL (1.8-2.4); Phosphorus 3.7 mg/dL (2.6-4.7); Potassium 4.7 mmol/L (3.5-5.1); Sodium 137 mmol/L (136-145); Uric Acid 4.1 mg/dL (3.5-7.2)
[2023-12-31 10:10] LABS: PTH, Intact 27 pg/mL (15-65)
== END 2023-12-30 08:15 | disposition home or self-care (01) ==
LOC: LAB 08:15
PROVIDERS: PCP Internal Medicine; Visit Provider Internal Medicine
DX: E78.5 Hyperlipidemia, unspecified (principal); N25.81 Secondary hyperparathyroidism of renal origin; E11.22 Type 2 diabetes mellitus with diabetic chronic kidney disease; I12.9 Hypertensive chronic kidney disease with stage 1 through stage 4 chronic kidney disease, or unspecified chronic kidney disease; N18.30 Chronic kidney disease, stage 3 unspecified; I50.22 Chronic systolic (congestive) heart failure
CPT/HCPCS: 36415; 80069; 82306; 82570; 83735; 83970; 84156; 84550; 85027

== ENCOUNTER 2023-12-31 09:47 | Outpatient (OUT) | payer MEDICARE, OTHER, SELFPAY ==
--- NOTE | 2023-12-31 09:49 | VEIN_ITS ---
The [address] [address] Patient Name: LANI LIZAMA MRN: [id number] date: 1950 Sex: M Assigned Patient Location: Current Patient Location: Accession/Order Number: [id number] Exam Date: 12/31/2023 09:50 Report Date: 12/31/2023 11:31 At the request of: DEVEN CRESPO Procedure: VC SEGMENTAL PRESSURES EXAM: VC SEGMENTAL PRESSURES HISTORY: E11.51 COMPARISON: None. TECHNIQUE: Resting ABIs. FINDINGS: Resting ABIs are abnormally elevated likely due to vascular rigidity. Upper thigh and upper calf segmental pressures were also abnormally elevated. Based upon waveform analysis the likelihood of significant peripheral vascular disease is low. Nevertheless, CTA can be performed if clinically indicated. VEIN/VC SEGMENTAL PRESSURES IMPRESSION: Nondiagnostic ABIs and segmental pressures. See above for details. Recommend CTA if the clinical indications are appropriate. Electronically authenticated by: Gary WEATHERS Date: 12/31/2023 11:31
--- OUTSIDE RECORDS SUMMARY | 2023-12-31 10:08 | XMS_ITS | CCD ---
Author Organization [facility] CliniSyil Care Team Providers Care Mechanical Engineering Professor Name Role Phone ELTAHAWY, EHAB A Admitting Unavailable ELTAHAWY, EHAB A Attending Unavailable HARLEY CRESPO Referring Unavailable HARLEY CRESPO Primary Care Unavailable ELTAHAWY, NETOAB A Surgeon Unavailable [facility] Procedure Practitioner Unavailab le ELTAHAWY, EHAB A Admitting Unavailable ELTAHAWJo, PINKY A Attending Unavailable HARLEY CRESPO Referring Unavailable HARLEY CRESPO Primary Care Unavailable Arlen Kwong Unavailable [place] Unavailable Shannon Escobar Unavailable HARLEY CRESPO Primary Care Physician [phone] Harley Crespo DO Primary Care Provider DO Harley Crespo Primary Care Provider [phone] JULY Kwong Attending Provider [phone] DO Gagan Shahid Admit Provider [phone] DO Gagan Shahid Attending Provider [phone] Harley Crespo Unavailable VIJAY, DR LOWE Consulting [...] DR CARVALHO Attending Unavailable BALL, DR CARVALHO Admmyaela Unavailable RASTEGAR, HAZEL Consulting Unavailable LATISHA, KINGSLEY [...] Date of Onset Reaction(s) Facility (1 source) 37575,00; Translations: [Unknown] Propensity to adverse reactions (disorder) 9 [facility] Repository Medications Current Medications Medication [...] 2023 8:42am take 1 capsule by mo [facility] every twenty-four hours Colace 100 MG 1 [...] 12:00am July 10, 2021 9:59am triamcinolone acetonide 0.07406 mg/mg topical ointment (1 source) Corticosteroid triamcinolone [...] artery disease; Translations: [Atherosclerotic heart disease of [place] coronary artery without angina pectoris] Onset: 3 [...] sources) Long-term current use of insulin; Translations: [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] Episodic Other aftercare (11 sources) care home (current) use of insulin; Translations: [middle 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 school principal current use of insulin Z79.4] Onset: 1 [...] Onset: 09-29-2021 Episodic Other aftercare (1 source) 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; Translations: [SNF CURRENT USE OF ASPIRIN] Onset: 04-03-2022 Episodic Other aftercare (1 source) 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; Translations: [OTH SNF CURRENT DRUG THERAPY] Onset: 04-03-2022 Episodic Other [...] 10-17-2023 HbA1c (Bld) [Mass fraction] 7.5 % [facility] No Panel Informationon 10-16 Bedside Glucose 108 [facility] Office Visiton 10-07-2023 Follow-up visit [id number] Lani Lizama 1950 M Date Provider Department Center 10/07/2023 271-PINKY BISHOP Family History Problem Relation Age of Onset Heart attack Mother Other Father Other Brother Heart attack Maternal Grandmother Heart attack Maternal Grandfather Family Status - Relation Status Age at Mother Father Brother Maternal Grandmother Maternal Grandfather Level of Service:09232 [facility] OFFICE/OUTPATIENT ESTABLISHED LOW MDM 20 MIN Normal [facility] 30on 09-28-2023 30 The patient is Moder [...] to stop on the way home. Normal [facility] BASIC METABOLIC PANELon 08-31 Anion gap [Moles/Vol] 13 mmol/L Normal 7-20 [facility] Comment on above: Performed By: #### L [id number] ####[facility] (BEAKER)[address] [facility] [place] [address] Calcium [Mass/Vol] 8.8 mg/dL Normal 8.6-10.3 [facility] Comment on above: Performed By: #### L [id number] ####[facility] (BEAKER)[address] [place] [facility] [address] Chloride [Moles/Vol] 104 mmol/L Normal 98-107 [facility] Comment on above: Performed By: #### L [id number] ####[facility] (BEAKER)[address] [facility] [place] [address] CO2 [Moles/Vol] 24 mmol/L Normal 21-31 [facility] Comment on above: Performed By: #### L [id number] ####[facility] (BEAKER)[address] [facility] [place] [address] Creatinine [Mass/Vol] 1.59 mg/dL High 0.70-1.30 [facility] Comment on above: Performed By: #### L [id number] ####[facility] ([facility])[address] [place] [address] GLOMERULAR FILTRATION RATE ML/MIN/1.73 SQ M.PREDICTED 46.1 mL/min/1.73m*2 Low >60.0 [facility] Comment on above: Result Comment: [facility]???s estimated glomerular filtration rate (eGFR) [...] of individuals. Performed By: #### L [id number] ####[facility] ([facility])[address] [place] [address] Glucose [Mass/Vol] 188 mg/dL High 70-100 [facility] Comment on above: Performed By: #### L [id number] ####[facility] ([facility])[address] [place] [address] Potassium [Moles/Vol] 4.1 mmol/L Normal 3.5-5.1 [facility] Comment on above: Performed By: #### L [id number] ####[facility] ([facility])[address] [place] [address] Sodium [Moles/Vol] 137 mmol/L Normal 136-145 [facility] Comment on above: Performed By: #### L [id number] ####[facility] ([facility])[address] [place] [address] Urea nitrogen [Mass/Vol] 26 mg/dL High 7-25 [facility] Comment on above: Performed By: #### L [id number] ####[facility] ([facility])[address] [place] [address] UREA NITROGEN/CREATININE (MASS RATIO) IN SER/PLAS 16.4 Normal [facility] Comment on above: Performed By: #### L [id number] ####[facility] ([facility])[address] [place] [address] CBCon 09-28-2023 Erythrocyte distribution width (RBC) [Ratio] 14.2 % Normal 11.5-15.0 [facility] Comment on above: Performed By: #### L [id number] #### [facility] ([facility]) [address] [place] [address] ERYTHROCYTE MEAN CORPUSCULAR HEMOGLOBIN CONCENTRATION (G/DL) BY AUTOMATED 33.2 g/dL Normal 32.0-35.0 [facility] Comment on above: Performed By: #### L [id number] #### [facility] ([facility]) [address] [place] [address] Hematocrit (Bld) [Volume fraction] 43.4 % Normal 39.0-55.0 [facility] Comment on above: Performed By: #### L [id number] #### [facility] ([facility]) [address] [place] [address] Hemoglobin (Bld) [Mass/Vol] 14.4 g/dL Normal 13.0-17.0 [facility] Comment on above: Performed By: #### L [id number] #### [facility] ([facility]) [address] [place] [address] MCH (RBC) [Entitic mass] 28.4 pg Normal 27.0-33.0 [facility] Comment on above: Performed By: #### L [id number] #### [facility] ([facility]) [address] [place] [address] MCV (RBC) [Entitic vol] 85.6 fL Normal 82.0-98.0 [facility] Comment on above: Performed By: #### L [id number] #### [facility] ([facility]) [address] [place] [address] PLATELETS (10*3/UL) IN BLOOD AUTOMATED COUNT 159 10*3/uL Normal 150-400 [facility] Comment on above: Performed By: #### L [id number] #### [facility] ([facility]) [address] [place] [address] RBC (Bld) [#/Vol] 5.07 10*6/uL Normal 4.20-5.70 [facility] Comment on above: Performed By: #### L [id number] #### [facility] ([facility]) [address] [place] [address] WBC (Bld) [#/Vol] 7.88 10*3/uL Normal 4.00-10.60 [facility] Comment on above: Performed By: #### L [id number] #### [facility] ([facility]) [address] [place] [address] POCT GLUCOSE METER UNSOLICIT ED RESULTSon 09-28-2023 Glucose [Mass/Vol] 176 mg/dL High 70-105 [facility] Comment on above: Order Comment: Waive d Testing in the ED is performed under the ED CLIA certificate #[id number]. Result Comment: [email or web address] Performed By: #### L [id number] #### [facility] ([facility]) [address] [place] [address] 30on 09-27-2023 30 Problem: Pain - Adul [...] shift include stable VS, cardiac cath Normal [facility] 30 Daily Case Managemen t Update Multidisciplinary rounds have been completed. Barriers to Discharge: Patient is a direct admitted from [place], due chest pain and elevated troponin. Tx to [facility], most recent Cardiology consulted and are planning [...] Consultation Consultation and Management 09/26/23 171 Normal [facility] 30 The patient is Moder ately Unstable [...] and maintained or improved Outcome: Progressing Normal [facility] ANTI-XA (HEPARIN LEVEL)on HEPARIN UNFRACTIONATED (U/ML) IN PPP BY CHROMOGENIC METHOD 0.47 IU/mL Normal 0.3-0.7 [facility] Comment on above: Order Comment: Check anti-Xa level every 6 hours while on heparin infusion, or per protocol. Result Comment: [place] roxaban and Apixaban will interfere with the anti Xa assay used to monitor UFH and LMWH. Performed By: #### L [id number] ####[facility] (BEAKER)[address] [place] [address] HEPARIN UNFRACTIONATED (U/ML) IN PPP BY CHROMOGENIC METHOD 0.55 IU/mL Normal 0.3-0.7 [facility] Comment on above: Order Comment: Check anti-Xa level every 6 hours while on heparin infusion, or per protocol. Result Comment: [place] roxaban and Apixaban will interfere with the anti Xa assay used to monitor UFH and LMWH. Performed By: #### L [id number] ####[facility] ([facility])[address] [place] [address] BASIC METABOLIC PANELon 06-2 Anion gap [Moles/Vol] 16 mmol/L Normal 7-20 [facility] Comment on above: Performed By: #### L [id number] ####[facility] ([facility])[address] [place] [address] Calcium [Mass/Vol] 9.2 mg/dL Normal 8.6-10.3 [facility] Comment on above: Performed By: #### L [id number] ####[facility] ([facility])[address] [place] [address] Chloride [Moles/Vol] 105 mmol/L Normal 98-107 [facility] Comment on above: Performed By: #### L [id number] ####[facility] ([facility])[address] [place] [address] CO2 [Moles/Vol] 23 mmol/L Normal 21-31 [facility] Comment on above: Performed By: #### L [id number] ####[facility] ([facility])[address] [place] [address] Creatinine [Mass/Vol] 1.56 mg/dL High 0.70-1.30 [facility] Comment on above: Performed By: #### L [id number] ####[facility] ([facility])[address] [place] [address] GLOMERULAR FILTRATION RATE ML/MIN/1.73 SQ M.PREDICTED 47.2 mL/min/1.73m*2 Low >60.0 [facility] Comment on above: Result Comment: [facility]???s estimated glomerular filtration rate (eGFR) [...] of individuals. Performed By: #### L [id number] ####[facility] ([facility])[address] [place] [address] Glucose [Mass/Vol] 166 mg/dL High 70-100 [facility] Comment on above: Performed By: #### L [id number] ####[facility] ([facility])[address] [facility] [place] [address] Potassium [Moles/Vol] 4.3 mmol/L Normal 3.5-5.1 [facility] Comment on above: Performed By: #### L [id number] ####[facility] ([facility])[address] [facility] [place] [address] Sodium [Moles/Vol] 140 mmol/L Normal 136-145 [facility] Comment on above: Performed By: #### L [id number] ####[facility] ([facility])[address] [facility] [address] Urea nitrogen [Mass/Vol] 26 mg/dL High 7-25 [facility] Comment on above: Performed By: #### L [id number] ####[facility] ([facility])[address] [facility] [place] [address] UREA NITROGEN/CREATININE (MASS RATIO) IN SER/PLAS 16.7 Normal [facility] Comment on above: Performed By: #### L [id number] ####[facility] (BEAKER)[address] [facility] [place] [address] CBCon 09-27-2023 Erythrocyte distribution width (RBC) [Ratio] 14.4 % Normal 11.5-15.0 [facility] Comment on above: Performed By: #### L [id number] #### [facility] ([facility]) [address] [place] [address] ERYTHROCYTE MEAN CORPUSCULAR HEMOGLOBIN CONCENTRATION (G/DL) BY AUTOMATED 33.1 g/dL Normal 32.0-35.0 [facility] Comment on above: Performed By: #### L [id number] #### [facility] ([facility]) [address] [place] [address] Hematocrit (Bld) [Volume fraction] 46.2 % Normal 39.0-55.0 [facility] Comment on above: Performed By: #### L [id number] #### [facility] ([facility]) [address] [place] [address] Hemoglobin (Bld) [Mass/Vol] 15.3 g/dL Normal 13.0-17.0 [facility] Comment on above: Performed By: #### L [id number] #### [facility] ([facility]) [address] [place] [address] MCH (RBC) [Entitic mass] 28.7 pg Normal 27.0-33.0 [facility] Comment on above: Performed By: #### L [id number] #### [facility] ([facility]) [address] [place] [address] MCV (RBC) [Entitic vol] 86.7 fL Normal 82.0-98.0 [facility] Comment on above: Performed By: #### L [id number] #### [facility] ([facility]) [address] [place] [address] PLATELETS (10*3/UL) IN BLOOD AUTOMATED COUNT 158 10*3/uL Normal 150-400 [facility] Comment on above: Performed By: #### L [id number] #### [facility] ([facility]) [address] [place] [address] RBC (Bld) [#/Vol] 5.33 10*6/uL Normal 4.20-5.70 [facility] Comment on above: Performed By: #### L [id number] #### [facility] ([facility]) [address] [place] [address] WBC (Bld) [#/Vol] 7.95 10*3/uL Normal 4.00-10.60 [facility] Comment on above: Performed By: #### L [id number] #### [facility] (RACHEL) [address] [place] [address] CONSULTon 09-27-2023 CONSULT Cardiology Consult N rabia [...] with elevated troponin consistent with non-ST elevation [place]. 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 Pain was described as centrally-located and pressure-like, and unrelieved by Nitroglycerin x3. Patient started on nitroglycerin drip which provided relief. Initial high sensitivity troponin was unremarkable, but repeat was elevated (2962). He was started on heparin and transferred to [facility] for further evaluation. We were consulted for [...] artery stenosis, Coronary artery disease, Diabetes mellitus ([facility]/HCC), Hyperlipidemia, Hypertension, PVD (peripheral vascular disease) ([facility]), and Third degree heart block ([facility]). Surgical History He has a past [...] insulin dete (more content not included)... Normal [facility] HPon 09-27-2023 HP H&P reviewed. The jaron mark was interviewed and examined. 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 Procedure's details, risks and benefits discussed with the patient and he's agreeable. [facility] LIPID PANELon 09-27-2023 CHOL/HDL 3.5 mg/dL [facility] Comment on above: Performed By: #### L [id number] #### [facility] (BEAKER) [address] [place] [address] Cholesterol [Mass/Vol] 108 mg/dL Low 120-200 [facility] Comment on above: Performed By: #### L [id number] #### [facility] (BEAKER) [address] [place] [address] Magnesium [Mass/Vol] 148 mg/dL Normal 40-149 [facility] Comment on above: Result Comment: TRIG LYCERIDE REFERENCE RANGE: 20 YEARS AND OLDER CARDIOVASCULAR RISK LESS THAN 150 mg/dL LOW RISK 150 TO 199 mg/dL BORDERLINE RISK 200 mg/dL AND GREATER HIGH RISK Performed By: #### L [id number] #### [facility] (BEAKER) [address] [place] [address] Magnesium [Mass/Vol] 47 mg/dL Normal 0-160 [facility] Comment on above: Performed By: #### L [id number] #### [facility] ([facility]) [address] [place] [address] Magnesium [Mass/Vol] 31 mg/dL Normal 23-92 [facility] Comment on above: Performed By: #### L [id number] #### [facility] ([facility]) [address] [place] [address] NON HDL CHOL. (LDL+VLDL) 77 Normal [facility] Comment on above: Performed By: #### L [id number] #### [facility] ([facility]) [address] [place] [address] TOTAL VLDL-C 30 mg/dL Normal 0-40 [facility] Comment on above: Performed By: #### L [id number] #### [facility] ([facility]) [address] [place] [address] POCT GLUCOSE METER UNSOLICIT ED RESULTSon 09-27-2023 Glucose [Mass/Vol] 299 mg/dL High 70-105 [facility] Comment on above: Order Comment: Waive d Testing in the ED is performed under the ED CLIA certificate #[id number]. Result Comment: roberto [email or web address] Performed By: #### L [id number] #### [facility] ([facility]) [address] [place] [address] Glucose [Mass/Vol] 140 mg/dL High 70-105 [facility] Comment on above: Order Comment: Waive d Testing in the ED is performed under the ED CLIA certificate #[id number]. Result Comment: [email or web address] Performed By: #### L [id number] #### [facility] ([facility]) [address] [place] [address] Glucose [Mass/Vol] 193 mg/dL High 70-105 [facility] Comment on above: Order Comment: Waive d Testing in the ED is performed under the ED CLIA certificate #[id number]. Result Comment: [email or web address] Performed By: #### L [id number] #### [facility] ([facility]) [address] [place] [address] Glucose [Mass/Vol] 184 mg/dL High 70-105 [facility] Comment on above: Order Comment: Waive d Testing in the ED is performed under the ED CLIA certificate #[id number]. Result Comment: [email or web address] Performed By: #### L [id number] ####[facility] ([facility])[address] [place] [address] TROPONIN Ion 09-27-2023 Troponin I.cardiac [Mass/Vol] 3.05 ng/mL Critically high 0.00-0.04 [facility] Comment on above: Result Comment: M-VA EVIOUS CRITICAL RESULT Previous result verified on 09/27/2023 0117 on specimen/case [id number] called with component Troponin I for procedure Troponin I with value 3.51 ng/mL. Performed By: #### L [id number] #### [facility] ([facility]) [address] [place] [address] 30on 09-26-2023 30 The patient is Moder ately Stable - Low risk of patient condition declining or worsening The patient's goals for the shift include Comfort/Rest The clinical goals for the shift include stable vital signs Normal [facility] ANTI-XA (HEPARIN LEVEL)on HEPARIN UNFRACTIONATED (U/ML) IN PPP BY CHROMOGENIC METHOD 0.82 IU/mL High 0.3-0.7 [facility] Comment on above: Order Comment: Check anti-Xa level every 6 hours while on heparin infusion, or per protocol. Result Comment: [place] roxaban and Apixaban will interfere with the anti Xa assay used to monitor UFH and LMWH. Performed By: #### L [id number] #### [facility] ([facility]) [address] [place] [address] APTTon 09-26-2023 ACTIVATED PARTIAL THROMBOPLASTIN TIME IN PPP BY COAGULATION ASSAY 34.7 Seconds Normal 25.0-35.0 [facility] Comment on above: Order Comment: Basel ine aPTT before initiating heparin infusion. Result Comment: Clin ical significance of the APTT is questionable in the presence of heparin. Performed By: #### L [id number] #### [facility] ([facility]) [address] [place] [address] Activated partial thrombopla stin time (aPTT) in platelet poor plasma by coagulation aon 09-26-2023 aPTT Coag (PPP) [Time] 28.8 s 22.3-36.2 [facility] Basophils Auto (Bld) [#/Vol] on 09-26-2023 Basophils (Bld) [#/Vol] 0.1 10 3/uL 0.0-0.1 [facility] Basophils/100 WBC Auto (Bld) on 09-26-2023 Basophils/100 WBC (Bld) 0.6 % 0.2-2.0 [facility] CBCon 09-26-2023 Erythrocyte distribution width (RBC) [Ratio] 14.3 % Normal 11.5-15.0 [facility] Comment on above: Performed By: #### L [id number] #### [facility] ([facility]) [address] [place] [address] ERYTHROCYTE MEAN CORPUSCULAR HEMOGLOBIN CONCENTRATION (G/DL) BY AUTOMATED 33.1 g/dL Normal 32.0-35.0 [facility] Comment on above: Performed By: #### L [id number] #### [facility] ([facility]) [address] [place] [address] Hematocrit (Bld) [Volume fraction] 48.7 % Normal 39.0-55.0 [facility] Comment on above: Performed By: #### L [id number] #### [facility] ([facility]) [address] [place] [address] Hemoglobin (Bld) [Mass/Vol] 16.1 g/dL Normal 13.0-17.0 [facility] Comment on above: Performed By: #### L [id number] #### [facility] ([facility]) [address] [place] [address] MCH (RBC) [Entitic mass] 28.8 pg Normal 27.0-33.0 [facility] Comment on above: Performed By: #### L [id number] #### [facility] ([facility]) [address] [place] [address] MCV (RBC) [Entitic vol] 87.0 fL Normal 82.0-98.0 [facility] Comment on above: Performed By: #### L [id number] #### [facility] ([facility]) [address] [place] [address] PLATELETS (10*3/UL) IN BLOOD AUTOMATED COUNT 170 10*3/uL Normal 150-400 [facility] Comment on above: Performed By: #### L [id number] #### [facility] ([facility]) [address] [place] [address] RBC (Bld) [#/Vol] 5.60 10*6/uL Normal 4.20-5.70 [facility] Comment on above: Performed By: #### L [id number] #### [facility] ([facility]) [address] [place] [address] WBC (Bld) [#/Vol] 7.75 10*3/uL Normal 4.00-10.60 [facility] Comment on above: Performed By: #### L [id number] #### [facility] ([facility]) [address] [place] [address] COMPREHENSIVE METABOLIC PANE Mike 09-26-2023 Albumin [Mass/Vol] 4.3 g/dL Normal 3.5-5.7 [facility] Comment on above: Performed By: #### L [id number] #### [facility] ([facility]) [address] [place] [address] ALP [Catalytic activity/Vol] 100 U/L Normal 34-104 [facility] Comment on above: Performed By: #### L [id number] #### [facility] ([facility]) [address] [place] [address] ALT [Catalytic activity/Vol] 20 U/L Normal 7-52 [facility] Comment on above: Performed By: #### L [id number] #### [facility] ([facility]) [address] [place] [address] Anion gap [Moles/Vol] 15 mmol/L Normal 7-20 [facility] Comment on above: Performed By: #### L [id number] #### [facility] ([facility]) [address] [place] [address] AST [Catalytic activity/Vol] 50 U/L High 13-39 [facility] Comment on above: Performed By: #### L [id number] #### [facility] ([facility]) [address] [place] [address] Bilirubin [Mass/Vol] 1.1 mg/dL High 0.3-1.0 [facility] Comment on above: Performed By: #### L [id number] #### [facility] ([facility]) [address] [place] [address] Calcium [Mass/Vol] 9.4 mg/dL Normal 8.6-10.3 [facility] Comment on above: Performed By: #### L [id number] #### [facility] ([facility]) [address] [place] [address] Chloride [Moles/Vol] 104 mmol/L Normal 98-107 [facility] Comment on above: Performed By: #### L [id number] #### [facility] ([facility]) [address] [place] [address] CO2 [Moles/Vol] 26 mmol/L Normal 21-31 [facility] Comment on above: Performed By: #### L [id number] #### [facility] ([facility]) [address] [place] [address] Creatinine [Mass/Vol] 1.45 mg/dL High 0.70-1.30 [facility] Comment on above: Performed By: #### L [id number] #### [facility] ([facility]) [address] [place] [address] GLOMERULAR FILTRATION RATE ML/MIN/1.73 SQ M.PREDICTED 51.5 mL/min/1.73m*2 Low >60.0 [facility] Comment on above: Result Comment: [facility]???s estimated glomerular filtration rate (eGFR) [...] individuals. Performed By: #### L [id number] #### [facility] ([facility]) [address] [place] [address] Glucose [Mass/Vol] 141 mg/dL High 70-100 [facility] Comment on above: Performed By: #### L [id number] #### [facility] ([facility]) [address] [place] [address] Potassium [Moles/Vol] 4.2 mmol/L Normal 3.5-5.1 [facility] Comment on above: Performed By: #### L [id number] #### [facility] ([facility]) [address] [facility] [address] Protein [Mass/Vol] 7.4 g/dL Normal 6.0-8.3 [facility] Comment on above: Performed By: #### L [id number] #### [facility] ([facility]) [address] [place] [address] Sodium [Moles/Vol] 141 mmol/L Normal 136-145 [facility] Comment on above: Performed By: #### L [id number] #### [facility] ([facility]) [address] [place] [address] Urea nitrogen [Mass/Vol] 24 mg/dL Normal 7-25 [facility] Comment on above: Performed By: #### L [id number] #### [facility] ([facility]) [address] [place] [address] UREA NITROGEN/CREATININE (MASS RATIO) IN SER/PLAS 16.6 Normal [facility] Comment on above: Performed By: #### L [id number] #### [facility] ([facility]) [address] [place] [address] Eosinophils/100 WBC Auto (Bl d)on 09-26-2023 Eosinophils/100 WBC (Bld) 2.4 % 0.9-7.0 [facility] Erythrocyte distribution wid th Auto (RBC) [Ratio]on 09-26-2023 Erythrocyte distribution width (RBC) [Ratio] 14.3 % 11.0-15.0 [facility] Estimated glomerular filtrat ion rate (GFR) non- Americanon 09-26-2023 GFR/1.73 sq M.predicted among non-blacks MDRD (S/P/Bld) [Vol rate/Area] 39 mL/min/{1.73_m2} Low >=60 [facility] Globulin Calc (S) [Mass/Vol] on 09-26-2023 Globulin (S) [Mass/Vol] 4.0 g/dL [facility] HPon 09-26-2023 HP History Of Present I llness Lani Lizama is a 72 y.o. male presenting with patient is a 72-year-old gentleman with history of coronary atherosclerosisChest pain. 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 Patient woke up with chest pain around [...] wasstarted on heparin and was transferred to [facility] for further cares. Creatinine was 1.7. I [...] artery stenosis, Coronary artery disease, Diabetes mellitus ([facility]), Hyperlipidemia, Hypertension, PVD (peripheral vascular disease) ([facility]), and Third degree heart block ([facility]). Surgical History He has a past [...] and nontoxic (more content not included)... Normal [facility] Hematocrit Auto (Bld) [Volum e fraction]on 09-26-2023 Hematocrit (Bld) [Volume fraction] 49.4 % 42.0-54.0 [facility] Hemoglobin [Mass/volume] in Bloodon 09-26-2023 Hemoglobin (Bld) [Mass/Vol] 16.0 g/dL 14.0-18.0 [facility] INR in Platelet poor plasma by Coagulation assayon 09-26-2023 INR Coag (PPP) [Relative time] 0.99 {INR} [facility] Comment on above: DESIRED INR:2.0-3.0 CONDITIONS NOT LISTED BELOW2.5-3.5 FOR PROSTHETIC HEART VALVE REPLACEMENT2.5-3.5 RECURRENT THROMBOSIS LACTIC ACID WITH 4 HOUR REFL EXon 09-26-2023 LACTATE (MMOL/L) IN SER/PLAS 1.1 mmol/L Normal 0.5-2.2 [facility] Comment on above: Performed By: #### L [id number] #### [facility] ([facility]) [address] [place] [address] Laboratory - Chemistry and C hemistry - challengeon 09-26-2023 Albumin [Mass/Vol] 4.1 g/dL 3.4-5.0 [facility] ALP [Catalytic activity/Vol] 146 U/L High 46-116 [facility] ALT [Catalytic activity/Vol] 32 U/L 16-63 [facility] AST [Catalytic activity/Vol] 26 U/L 15-37 [facility] Bilirubin [Mass/Vol] 0.7 mg/dL 0.2-1.0 [facility] Calcium [Mass/Vol] 9.2 mg/dL 8.5-10.1 [facility] Chloride [Moles/Vol] 104 mmol/L 98-107 [facility] CO2 [Moles/Vol] 24.8 mmol/L 21.0-32.0 [facility] Creatinine [Mass/Vol] 1.72 mg/dL High 0.70-1.30 [facility] GFR/1.73 sq M.predicted MDRD (S/P/Bld) [Vol rate/Area] 48 mL/min/{1.73_m2} Low >=60 [facility] Glucose [Mass/Vol] 206 mg/dL High 74-106 [facility] Potassium [Moles/Vol] 4.2 mmol/L 3.5-5.1 [facility] Protein [Mass/Vol] 8.1 g/dL 6.4-8.2 [facility] Sodium [Moles/Vol] 141 mmol/L 136-145 [facility] Urea nitrogen [Mass/Vol] 26.0 mg/dL High 7.0-18.0 [facility] Urea nitrogen/Creatinine [Mass ratio] 15.1 mg/mg [facility] Laboratory - Hematology and Cell countson 09-26-2023 Immature granulocytes/100 WBC (Bld) 0.3 % 0.0-0.5 [facility] Leukocytes [#/volume] correc soraya for nucleated erythrocytes in Blood by Automated counon 09-26-2023 WBC corrected for nucl RBC Auto (Bld) [#/Vol] 10.5 10 3/uL 4.0-11.0 [facility] Lymphocytes Auto (Bld) [#/Vo l]on 09-26-2023 Lymphocytes (Bld) [#/Vol] 2.0 10 3/uL 1.2-3.8 [facility] Lymphocytes/100 WBC Auto (Bl d)on 09-26-2023 Lymphocytes/100 WBC (Bld) 18.7 % Low 20.5-60.0 [facility] MCH Auto (RBC) [Entitic mass ]on 09-26-2023 MCH (RBC) [Entitic mass] 28.4 pg 25.9-34.0 [facility] MCHC Auto (RBC) [Mass/Vol]on 09-26-2023 MCHC (RBC) [Mass/Vol] 32.4 g/dL 29.9-35.2 [facility] MCV Auto (RBC) [Entitic vol] on 09-26-2023 MCV (RBC) [Entitic vol] 87.7 fL 80.0-94.0 [facility] Monocytes Auto (Bld) [#/Vol] on 09-26-2023 Monocytes (Bld) [#/Vol] 0.8 10 3/uL 0.3-0.8 [facility] Monocytes/100 WBC Auto (Bld) on 09-26-2023 Monocytes/100 WBC (Bld) 7.3 % 1.7-12.0 [facility] Neutrophils Auto (Bld) [#/Vo l]on 09-26-2023 Neutrophils (Bld) [#/Vol] 7.4 10 3/uL High 1.4-6.5 [facility] Neutrophils/100 WBC Auto (Bl d)on 09-26-2023 Neutrophils/100 WBC (Bld) 70.7 % 43.0-75.0 [facility] No Panel Informationon 09-25 Troponin I High Sensitivity 8614.2 pg/mL High 4.0-76.1 [facility] Comment on above: RESULTS CALLED [...] Eosinophils # (Auto) 0.3 10 3/uL 0.0-0.7 [facility] Immature Granulocyte # (Auto) 0.03 10 3/uL 0.00-0.03 [facility] POCT GLUCOSE METER UNSOLICIT ED RESULTSon 09-26-2023 Glucose [Mass/Vol] 286 mg/dL High 70-105 [facility] Comment on above: Order Comment: Waive d Testing in the ED is performed under the ED CLIA certificate #[id number]. Result Comment: roberto macias Performed By: #### L [id number] #### [facility] ([facility]ER) [address] [place] [address] Glucose [Mass/Vol] 151 mg/dL High 70-105 [facility] Comment on above: Order Comment: Waive d Testing in the ED is performed under the ED CLIA certificate #[id number]. Result Comment: cfet [email or web address] Performed By: #### L [id number] #### [facility] ([facility]) [address] [place] [address] Platelet mean volume Auto (B ld) [Entitic vol]on 09-26-2023 Platelet mean volume (Bld) [Entitic vol] 10.0 fL 9.5-13.5 [facility] Platelets Auto (Bld) [#/Vol] on 09-26-2023 Platelets (Bld) [#/Vol] 194 10 3/uL 150-450 [facility] Prothrombin time (PT)on 08-31 PT Coag (PPP) [Time] 10.5 s 9.0-11.6 [facility] RBC Auto (Bld) [#/Vol]on RBC (Bld) [#/Vol] 5.63 10 6/uL 4.70-6.10 [facility] Serum or plasma albumin/glob ulin mass ratioon 09-26-2023 Albumin/Globulin [Mass ratio] 1.0 {ratio} [facility] Serum or plasma anion gap de terminationon 09-26-2023 Anion gap [Moles/Vol] 16.4 mmol/L [facility] TROPONIN Ion 09-26-2023 Troponin I.cardiac [Mass/Vol] 3.51 ng/mL Critically high 0.00-0.04 [facility] Comment on above: Result Comment: M-VA EVIOUS CRITICAL RESULT Previous result verified on 09/26/2023 2309 on specimen/case [id number] called with component Troponin I for procedure Troponin I with value 3.41 ng/mL. Performed By: #### L [id number] #### [facility] ([facility]ER) [address] [place] [address] Troponin I.cardiac [Mass/Vol] 3.41 ng/mL Critically high 0.00-0.04 [facility] Comment on above: Result Comment: M-VA EVIOUS CRITICAL RESULT Previous result verified on 09/26/2023 1926 on specimen/case [id number] called with component Troponin I for procedure Troponin I with value 4.22 ng/mL. Performed By: #### L [id number] #### [facility] ([facility]ER) [address] [place] [address] Troponin I.cardiac [Mass/Vol] 4.22 ng/mL Critically high 0.00-0.04 [facility] Comment on above: Result Comment: MElenoTR OPONIN INITIAL CRITICAL HIGH; RESPUN AND RETESTED Performed By: #### L [id number] #### [facility] ([facility]ER) [address] [place] [address] Office Visiton 09-09-2023 Follow-up visit [id number] Lani Lizama 1950 M Date Provider Department Center 09/09/2023 271-PINKY BISHOP CARD [facility] Family History Problem Relation Age of Onset Heart attack Mother Other Father Other Brother Heart attack Maternal Grandmother Heart attack Maternal Grandfather Family Status - Relation Status Age at Mother Father Brother Maternal Grandmother Maternal Grandfather Level of Service:52499 [facility] OFFICE/OUTPATIENT ESTABLISHED MOD MDM 30 MIN Normal [facility] No Panel Informationon 08-26 Prostate Specific Antigen Screen 1.37 ng/mL <=4.00 [facility] Erythrocyte distribution wid th Auto (RBC) [Ratio]on 06-24-2023 Erythrocyte distribution width (RBC) [Ratio] 14.6 % 11.0-15.0 [facility] Estimated glomerular filtrat ion rate (GFR) non- Americanon 06-24-2023 GFR/1.73 sq M.predicted among non-blacks MDRD (S/P/Bld) [Vol rate/Area] 38 mL/min/{1.73_m2} >=60 [facility] Hematocrit Auto (Bld) [Volum e fraction]on 06-24-2023 Hematocrit (Bld) [Volume fraction] 46.2 % 42.0-54.0 [facility] Hemoglobin [Mass/volume] in Bloodon 06-24-2023 Hemoglobin (Bld) [Mass/Vol] 14.5 g/dL 14.0-18.0 [facility] Laboratory - Chemistry and C hemistry - challengeon 06-24-2023 Albumin [Mass/Vol] 4.0 g/dL 3.4-5.0 [facility] Calcium [Mass/Vol] 9.2 mg/dL 8.5-10.1 [facility] Chloride [Moles/Vol] 106 mmol/L 98-107 [facility] CO2 [Moles/Vol] 25.4 mmol/L 21.0-32.0 [facility] Creatinine [Mass/Vol] 1.76 mg/dL 0.70-1.30 [facility] GFR/1.73 sq M.predicted MDRD (S/P/Bld) [Vol rate/Area] 47 mL/min/{1.73_m2} >=60 [facility] Glucose [Mass/Vol] 212 mg/dL 74-106 [facility] Magnesium [Mass/Vol] 2.1 mg/dL 1.8-2.4 [facility] Potassium [Moles/Vol] 4.5 mmol/L 3.5-5.1 [facility] Sodium [Moles/Vol] 142 mmol/L 136-145 [facility] Urate [Mass/Vol] 4.3 mg/dL 3.5-7.2 [facility] Urea nitrogen [Mass/Vol] 30.0 mg/dL 7.0-18.0 [facility] Urea nitrogen/Creatinine [Mass ratio] 17.0 mg/mg [facility] Laboratory - Urinalysison Protein (U) [Mass/Vol] 11.5 mg/dL <=11.9 [facility] Leukocytes [#/volume] correc soraya for nucleated erythrocytes in Blood by Automated counon 06-24-2023 WBC corrected for nucl RBC Auto (Bld) [#/Vol] 9.6 10 3/uL 4.0-11.0 [facility] MCH Auto (RBC) [Entitic mass ]on 06-24-2023 MCH (RBC) [Entitic mass] 28.5 pg 25.9-34.0 [facility] MCHC Auto (RBC) [Mass/Vol]on 06-24-2023 MCHC (RBC) [Mass/Vol] 31.4 g/dL 29.9-35.2 [facility] MCV Auto (RBC) [Entitic vol] on 06-24-2023 MCV (RBC) [Entitic vol] 90.8 fL 80.0-94.0 [facility] No Panel Informationon 06-23 25-Hydroxy Vitamin D Total 42.5 ng/mL [facility] Comment on above: <20 ng/mL Vit D defi cient20-<30 ng/mL Vit D [id number] ng/mL Vit D sufficient>100 ng/mL Potential Toxicity Parathyroid Hormone (Intact) 48 pg/mL 15-65 [facility] Comment on above: Performed at: [employer] [facility] [employer] [address] [id number] Director: Kwaku Park PhD, Phone: [phone] Phosphorus Level 3.6 mg/dL 2.6-4.7 [facility] Urine Random Creatinine 60.60 mg/dL 20.00-300. 00 [facility] Platelet mean volume Auto (B ld) [Entitic vol]on 06-24-2023 Platelet mean volume (Bld) [Entitic vol] 10.2 fL 9.5-13.5 [facility] Platelets Auto (Bld) [#/Vol] on 06-24-2023 Platelets (Bld) [#/Vol] 178 10 3/uL 150-450 [facility] RBC Auto (Bld) [#/Vol]on RBC (Bld) [#/Vol] 5.09 10 6/uL 4.70-6.10 [facility] Serum or plasma anion gap de terminationon 06-24-2023 Anion gap [Moles/Vol] 15.1 mmol/L [facility] Urine protein/creatinine rat ioon 06-24-2023 Protein/Creatinine (U) [Ratio] 0.19 [facility] HbA1c HPLC (Bld) [Mass fract ion]on 06-18-2023 HbA1c (Bld) [Mass fraction] 6.1 % [facility] No Panel Informationon 06-17 Bedside Glucose 150 [facility] Cholesterol in LDL Calc [Mas s/Vol]on 06-13-2023 Cholesterol in LDL [Mass/Vol] 29.0 mg/dL [facility] Comment on above: <100 mg/dl [id number] 0-129 mg/dl NEAR OR ABOVE [id number] mg/dl BORDERLINE [id number] mg/dl HIGH>190 mg/dl VERY HIGH Cholesterol in VLDL Calc [Ma ss/Vol]on 06-13-2023 Cholesterol in VLDL [Mass/Vol] 24.8 mg/dL [facility] Laboratory - Chemistry and C hemistry - challengeon 06-13-2023 Cholesterol [Mass/Vol] 87 mg/dL <=200 [facility] Cholesterol in HDL [Mass/Vol] 34 mg/dL 40-60 [facility] Comment on above: > or =60 mg/dl - LOW CARDIOVASCULAR RISK<40 mg/dl - HIGH CARDIOVASCULAR RISK Triglyceride [Mass/Vol] 124 mg/dL <=150 [facility] Serum or plasma total choles terol/high density lipoprotein (HDL) cholesterol mass yulia 06-13-2023 Cholesterol.total/Cho lesterol in HDL [Mass ratio] 2.6 {ratio} [facility] Comment on above: 3.3 - 4.4 LOW RISK4. 4 - 7.1 AVERAGE RISK7.1 - 11.0 MODERATE RISK>11.0 HIGH RISK Office Visiton 05-07-2023 Follow-up visit [id number] Lani Lizama 1950 M Date Provider Department Center 05/07/2023 241-KEVIN ARTEAGA MARCELINO Armas Family History Problem Relation Age of Onset Heart attack Mother Other Father Other Brother Heart attack Maternal Grandmother Heart attack Maternal Grandfather Family Status - Relation Status Age at Mother Father Brother Maternal Grandmother Maternal Grandfather Level of Service:86430 [facility] OFFICE/OUTPATIENT ESTABLISHED LOW MDM 20 MIN Normal [facility] Office Visiton 04-30-2023 Follow-up visit [id number] Lani Lizama 1950 M Date Provider Department Center 04/30/2023 LAILA MCBRIDE Family History Problem Relation Age of Onset Heart attack Mother Other Father Other Brother Heart attack Maternal Grandmother Heart attack Maternal Grandfather Family Status - Relation Status Age at Mother Father Brother Maternal Grandmother Maternal Grandfather Level of Service:15733 [facility] OFFICE/OUTPATIENT ESTABLISHED MOD MDM 30 MIN Normal [facility] Office Visiton 03-18-2023 Follow-up visit [id number] Lani Lizama 1950 M Date Provider Department Center 03/18/2023 Nakul-LAILA DUARTE MARCELINO [facility] Family History Problem Relation Age of Onset Heart attack Mother Other Father Other Brother Heart attack Maternal Grandmother Heart attack Maternal Grandfather Family Status - Relation Status Age at Mother Father Brother Maternal Grandmother Maternal Grandfather Level of Service:99194 [facility] OFFICE/OUTPATIENT ESTABLISHED MOD MDM 30 MIN Normal [facility] A1C HEMOGLOBINon 03-12-2023 HbA1c (Bld) [Mass fraction] 7.1 % [facility] [employer] Other Glucose - FINGER STICKon Glucose [Mass/Vol] 151 mg/dL [facility] [employer] Other HbA1c (Bld) [Mass fraction]o n 03-12-2023 A1C HEMOGLOBIN [facility] [employer] Other Office Visiton 03-07-2023 Follow-up visit [id number] Lani Lizama 1950 M Date Provider Department Center 03/07/2023 Scott-PINKY BISHOP MARCELINO Armas Family History Problem Relation Age of Onset Heart attack Mother Other Father Other Brother Heart attack Maternal Grandmother Heart attack Maternal Grandfather Family Status - Relation Status Age at Mother Father Brother Maternal Grandmother Maternal Grandfather Level of Service:17639 [place] OFFICE/OUTPATIENT ESTABLISHED MOD MDM 30-39 MIN Normal [facility] Orders Onlyon 02-27-2023 Orders Only [id number] Lani Lizama 1950 M Date Provider Department Center 02/27/2023 Bart-GEOVANNA BASS MARCELINO [facility] Family History Problem Relation Age of Onset Heart attack Mother Other Father Other Brother Heart attack Maternal Grandmother Heart attack Maternal Grandfather Family Status - Relation Status Age at Mother Father Brother Maternal Grandmother Maternal Grandfather Normal [facility] Office Visiton 02-19-2023 Follow-up visit [id number] Lani Lizama 1950 M Date Provider Department Center 02/19/2023 [id number] SOARES MARCELINO Armas Family History Problem Relation Age of Onset Heart attack Mother Other Father Other Brother Heart attack Maternal Grandmother Heart attack Maternal Grandfather Family Status - Relation Status Age at Mother Father Brother Maternal Grandmother Maternal Grandfather Level of Service:02281 [facility] POSTOP FOLLOW UP VISIT RELATED TO ORIGINAL PX Normal [facility] HPon 02-12-2023 HP ------ -- [...] and hypertension. He was [place] [facility] [place]. Had inpatient stress test and heart cath. Denies SOB but still having chest pain and has taken nitroglycerin a few times for relief. Had CT chest last week s/p discharge. Cardiac catheterization revealed patent bypass grafts and worsening [place] vessel disease. Medications were adjusted. I had [...] the morning. rubina (more content not included)... [facility] NURSNOTEon 02-12-2023 NURSNOTE RN educated pt on d/ c instructions. RN encouraged pt to voice any questions or concerns. Pt verbalizes no questions or concerns at this time. [facility] NURSNOTE CHG wipes and iodine nasal swab completed per protocol. [facility] Orders Onlyon 02-12-2023 Orders Only [id number] Lani Lizama 1950 Date Provider Department Center 02/12/2023 PORFIRIO GAXIOLA [facility] [place] [facility] Family History Problem Relation Age of Onset Heart attack Mother Other Father Other Brother Heart attack Maternal Grandmother Heart attack Maternal Grandfather Family Status - Relation Status Age at Mother Father Brother Maternal Grandmother Maternal Grandfather [facility] Follow-Upon 02-01-2023 Follow-Up [id number] Lani Lizama 1950 M Date Provider Department Center 02/01/2023 Nakul-LAILA DUARTE MARCELINO [facility] Family History Problem Relation Age of Onset Heart attack Mother Other Father Other Brother Heart attack Maternal Grandmother Heart attack Maternal Grandfather Family Status - Relation Status Age at Mother Father Brother Maternal Grandmother Maternal Grandfather Level of Service:01831 [facility] OFFICE/OUTPATIENT ESTABLISHED MOD MDM 30-39 MIN Reason for Visit and Comments: Follow-up [204127] Normal [facility] 30on 01-28-2023 30 The patient is Moder ately Stable - Low risk of patient condition declining or worsening The patient's goals for the shift include comfort The clinical goals for the shift include vss, safety Over the shift, the patient continued to make progress toward the following goals. Normal [facility] APTTon 01-28-2023 ACTIVATED PARTIAL THROMBOPLASTIN TIME IN PPP BY COAGULATION ASSAY 125.9 Seconds High 25.0-35.0 [facility] Comment on above: Result Comment: Clin ical significance of the APTT is questionable in the presence of heparin. Performed By: #### L [id number] #### [facility] ([employer] [address] [place] [address] BASIC METABOLIC PANELon 01-01 Anion gap [Moles/Vol] 10 mmol/L Normal 7-20 [facility] Comment on above: Performed By: #### L [id number] #### [facility] ([employer] [address] [place] [address] Calcium [Mass/Vol] 9.1 mg/dL Normal 8.6-10.3 [facility] Comment on above: Performed By: #### L [id number] #### [facility] ([facility]) [address] [place] [address] Chloride [Moles/Vol] 110 mmol/L High 98-107 [facility] Comment on above: Performed By: #### L [id number] #### [facility] ([facility]) [address] [place] [address] CO2 [Moles/Vol] 24 mmol/L Normal 21-31 [facility] Comment on above: Performed By: #### L [id number] #### [facility] ([facility]) [address] [place] [address] Creatinine [Mass/Vol] 1.46 mg/dL High 0.70-1.30 [facility] Comment on above: Performed By: #### L [id number] #### [facility] ([facility]) [address] [place] [address] GLOMERULAR FILTRATION RATE ML/MIN/1.73 SQ M.PREDICTED 51.1 mL/min/1.73m*2 Low >60.0 [facility] Comment on above: Result Comment: [facility]???s estimated glomerular filtration rate (eGFR) [...] individuals. Performed By: #### L [id number] #### [facility] ([facility]) [address] [place] [address] Glucose [Mass/Vol] 133 mg/dL High 70-100 [facility] Comment on above: Performed By: #### L [id number] #### [facility] ([facility]) [address] [place] [address] Potassium [Moles/Vol] 4.0 mmol/L Normal 3.5-5.1 [facility] Comment on above: Performed By: #### L [id number] #### [facility] ([facility]) [address] [place] [address] Sodium [Moles/Vol] 140 mmol/L Normal 136-145 [facility] Comment on above: Performed By: #### L [id number] #### [facility] ([facility]) [address] [place] [address] Urea nitrogen [Mass/Vol] 23 mg/dL Normal 7-25 [facility] Comment on above: Performed By: #### L [id number] #### [facility] ([facility]) [address] [place] [address] UREA NITROGEN/CREATININE (MASS RATIO) IN SER/PLAS 15.8 Normal [facility] Comment on above: Performed By: #### L [id number] #### [facility] ([facility]) [address] [place] [address] CBCon 01-28-2023 Erythrocyte distribution width (RBC) [Ratio] 13.2 % Normal 11.5-15.0 [facility] Comment on above: Performed By: #### L [id number] ####[facility] ([facility])[address] [place] [address] ERYTHROCYTE MEAN CORPUSCULAR HEMOGLOBIN CONCENTRATION (G/DL) BY AUTOMATED 33.8 g/dL Normal 32.0-35.0 [facility] Comment on above: Performed By: #### L [id number] ####[facility] ([facility])[address] [place] [address] Hematocrit (Bld) [Volume fraction] 39.0 % Normal 39.0-55.0 [facility] Comment on above: Performed By: #### L [id number] ####[facility] ([facility])[address] [place] [address] Hemoglobin (Bld) [Mass/Vol] 13.2 g/dL Normal 13.0-17.0 [facility] Comment on above: Performed By: #### L [id number] ####[facility] ([facility])[address] [place] [address] MCH (RBC) [Entitic mass] 31.1 pg Normal 27.0-33.0 [facility] Comment on above: Performed By: #### L [id number] ####[facility] ([facility])[address] [place] [address] MCV (RBC) [Entitic vol] 91.8 fL Normal 82.0-98.0 [facility] Comment on above: Performed By: #### L [id number] ####[facility] ([facility])[address] [place] [address] PLATELETS (10*3/UL) IN BLOOD AUTOMATED COUNT 141 10*3/uL Low 150-400 [facility] Comment on above: Performed By: #### L [id number] ####[facility] ([facility])[address] [place] [address] RBC (Bld) [#/Vol] 4.25 10*6/uL Normal 4.20-5.70 [facility] Comment on above: Performed By: #### L [id number] ####[facility] ([facility])[address] [place] [address] WBC (Bld) [#/Vol] 6.40 10*3/uL Normal 4.00-10.60 [facility] Comment on above: Performed By: #### L [id number] ####[facility] ([facility])[address] [place] [address] LIPID PANELon 01-28-2023 CHOL/HDL 3.7 mg/dL Normal [facility] Comment on above: Performed By: #### L [id number] #### [facility] ([facility]) [address] [place] [address] Cholesterol [Mass/Vol] 111 mg/dL Low 120-200 [facility] Comment on above: Performed By: #### L [id number] #### [facility] ([facility]) [address] [place] [address] Magnesium [Mass/Vol] 172 mg/dL High 40-149 [facility] Comment on above: Result Comment: TRIG LYCERIDE REFERENCE RANGE: 20 YEARS AND OLDER CARDIOVASCULAR RISK LESS THAN 150 mg/dL LOW RISK 150 TO 199 mg/dL BORDERLINE RISK 200 mg/dL AND GREATER HIGH RISK Performed By: #### L [id number] #### [facility] ([facility]) [address] [place] [address] Magnesium [Mass/Vol] 47 mg/dL Normal 0-160 [facility] Comment on above: Performed By: #### L [id number] #### [facility] ([facility]) [address] [place] [address] Magnesium [Mass/Vol] 30 mg/dL Normal 23-92 [facility] Comment on above: Performed By: #### L [id number] #### [facility] ([facility]) [address] [place] [address] NON HDL CHOL. (LDL+VLDL) 81 Normal [facility] Comment on above: Performed By: #### L [id number] #### [facility] ([facility]) [address] [place] [address] TOTAL VLDL-C 34 mg/dL Normal 0-40 [facility] Comment on above: Performed By: #### L [id number] #### [facility] ([facility]) [address] [place] [address] Orders Onlyon 01-28-2023 Orders Only [id number] Lani Lizama 1950 M Date Provider Department Center 01/28/[address] Family History Problem Relation Age of Onset Heart attack Mother Other Father Other Brother Heart attack Maternal Grandmother Heart attack Maternal Grandfather Family Status - Relation Status Age at Mother Father Brother Maternal Grandmother Maternal Grandfather Normal [facility] POCT GLUCOSE METER UNSOLICIT ED RESULTSon 01-28-2023 Glucose [Mass/Vol] 155 mg/dL High 70-105 [facility] Comment on above: Order Comment: Waive d Testing in the ED is performed under the ED CLIA certificate #[id number]. Result Comment: [email or web address] Performed By: #### L [id number] #### [facility] ([facility]) [address] [facility] [place] [address] Glucose [Mass/Vol] 151 mg/dL High 70-105 [facility] Comment on above: Order Comment: Waive d Testing in the ED is performed under the ED CLIA certificate #[id number]. Result Comment: [email or web address] Performed By: #### L [id number] ####[facility] ([facility])[address] [facility] [place] [address] Glucose [Mass/Vol] 133 mg/dL High 70-105 [facility] Comment on above: Order Comment: Waive d Testing in the ED is performed under the ED CLIA certificate #[id number]. Result Comment: [email or web address] Performed By: #### L [id number] #### [facility] ([facility]) [address] [facility] [place] [address] 30on 01-27-2023 30 The patient is Moder [...] to discharge with patient and caregiver Normal [facility] APTTon 01-27-2023 ACTIVATED PARTIAL THROMBOPLASTIN TIME IN PPP BY COAGULATION ASSAY 113.7 Seconds High 25.0-35.0 [facility] Comment on above: Result Comment: Clin ical significance of the APTT is questionable in the presence of heparin. Performed By: #### L [id number] #### [facility] ([facility]) [address] [place] [address] BASIC METABOLIC PANELon 10-2 Anion gap [Moles/Vol] 13 mmol/L Normal 7-20 [facility] Comment on above: Performed By: #### L [id number] ####[facility] ([facility])[address] [place] [address] Calcium [Mass/Vol] 9.4 mg/dL Normal 8.6-10.3 [facility] Comment on above: Performed By: #### L [id number] ####[facility] ([facility])[address] [place] [address] Chloride [Moles/Vol] 106 mmol/L Normal 98-107 [facility] Comment on above: Performed By: #### L [id number] ####[facility] ([facility])[address] [place] [address] CO2 [Moles/Vol] 26 mmol/L Normal 21-31 [facility] Comment on above: Performed By: #### L [id number] ####[facility] ([facility])[address] [place] [address] Creatinine [Mass/Vol] 1.71 mg/dL High 0.70-1.30 [facility] Comment on above: Performed By: #### L [id number] ####[facility] ([facility])[address] [place] [address] GLOMERULAR FILTRATION RATE ML/MIN/1.73 SQ M.PREDICTED 42.3 mL/min/1.73m*2 Low >60.0 [facility] Comment on above: Result Comment: [facility]???s estimated glomerular filtration rate (eGFR) [...] of individuals. Performed By: #### L [id number] ####[facility] ([facility])[address] [place] [address] Glucose [Mass/Vol] 155 mg/dL High 70-100 [facility] Comment on above: Performed By: #### L [id number] ####[facility] ([facility])[address] [place] [address] Potassium [Moles/Vol] 4.1 mmol/L Normal 3.5-5.1 [facility] Comment on above: Performed By: #### L [id number] ####[facility] ([facility])[address] [place] [address] Sodium [Moles/Vol] 141 mmol/L Normal 136-145 [facility] Comment on above: Performed By: #### L [id number] ####[facility] ([facility])[address] [place] [address] Urea nitrogen [Mass/Vol] 31 mg/dL High 7-25 [facility] Comment on above: Performed By: #### L [id number] ####[facility] ([facility])[address] [place] [address] UREA NITROGEN/CREATININE (MASS RATIO) IN SER/PLAS 18.1 Normal [facility] Comment on above: Performed By: #### L [id number] ####[facility] ([facility])[address] [place] [address] POCT GLUCOSE METER UNSOLICIT ED RESULTSon 01-27-2023 Glucose [Mass/Vol] 145 mg/dL High 70-105 [facility] Comment on above: Order Comment: Waive d Testing in the ED is performed under the ED CLIA certificate #[id number]. Result Comment: [email or web address] Performed By: #### L [id number] ####[facility] ([facility])[address] [place] [address] 30on 01-26-2023 30 The patient is Moder ately Stable - Low risk of patient condition declining or worsening The patient's goals for the shift include comfort The clinical goals for the shift include VSS, safety Problem: Safety - Adult Goal: Free from fall injury Outcome: Progressing Flowsheets (Taken 01/26/20231999) Free from fall injury: Assess patient frequently for physical needs Normal [facility] 30 The patient is Moder ately Stable [...] to discharge with patient and caregiver Normal [facility] APTTon 01-26-2023 ACTIVATED PARTIAL THROMBOPLASTIN TIME IN PPP BY COAGULATION ASSAY 80.8 Seconds High 25.0-35.0 [facility] Comment on above: Result Comment: Clin ical significance of the APTT is questionable in the presence of heparin. Performed By: #### L [id number] ####[facility] ([facility])[address] [place] [address] ACTIVATED PARTIAL THROMBOPLASTIN TIME IN PPP BY COAGULATION ASSAY 30.4 Seconds Normal 25.0-35.0 [facility] Comment on above: Order Comment: Check aPTT every 6 hours while on heparin infusion, or per protocol. Result Comment: Clin ical significance of the APTT is questionable in the presence of heparin. Performed By: #### L [id number] ####[facility] ([facility])[address] [place] [address] ACTIVATED PARTIAL THROMBOPLASTIN TIME IN PPP BY COAGULATION ASSAY 30.3 Seconds Normal 25.0-35.0 [facility] Comment on above: Order Comment: Check aPTT every 6 hours while on heparin infusion, or per protocol. Result Comment: Clin ical significance of the APTT is questionable in the presence of heparin. Performed By: #### L [id number] #### [facility] ([facility]) [address] [place] [address] BASIC METABOLIC PANELon 10-2 Anion gap [Moles/Vol] 13 mmol/L Normal 7-20 [facility] Comment on above: Performed By: #### L [id number] #### [facility] ([facility]) [address] [place] [address] Calcium [Mass/Vol] 9.1 mg/dL Normal 8.6-10.3 [facility] Comment on above: Performed By: #### L [id number] #### [facility] ([facility]) [address] [place] [address] Chloride [Moles/Vol] 107 mmol/L Normal 98-107 [facility] Comment on above: Performed By: #### L [id number] #### [facility] ([facility]) [address] [place] [address] CO2 [Moles/Vol] 22 mmol/L Normal 21-31 [facility] Comment on above: Performed By: #### L [id number] #### [facility] ([facility]) [address] [place] [address] Creatinine [Mass/Vol] 1.77 mg/dL High 0.70-1.30 [facility] Comment on above: Performed By: #### L [id number] #### [facility] ([facility]) [address] [place] [address] GLOMERULAR FILTRATION RATE ML/MIN/1.73 SQ M.PREDICTED 40.6 mL/min/1.73m*2 Low >60.0 [facility] Comment on above: Result Comment: [facility]???s estimated glomerular filtration rate (eGFR) [...] individuals. Performed By: #### L [id number] #### [facility] ([facility]) [address] [place] [address] Glucose [Mass/Vol] 125 mg/dL High 70-100 [facility] Comment on above: Performed By: #### L [id number] #### [facility] ([facility]) [address] [place] [address] Potassium [Moles/Vol] 4.2 mmol/L Normal 3.5-5.1 [facility] Comment on above: Performed By: #### L [id number] #### [facility] ([facility]) [address] [place] [address] Sodium [Moles/Vol] 138 mmol/L Normal 136-145 [facility] Comment on above: Performed By: #### L [id number] #### [facility] ([facility]) [address] [place] [address] Urea nitrogen [Mass/Vol] 27 mg/dL High 7-25 [facility] Comment on above: Performed By: #### L [id number] #### [facility] ([facility]) [address] [place] [address] UREA NITROGEN/CREATININE (MASS RATIO) IN SER/PLAS 15.3 Normal [facility] Comment on above: Performed By: #### L [id number] #### [facility] ([facility]) [address] [place] [address] CBCon 01-26-2023 Erythrocyte distribution width (RBC) [Ratio] 13.2 % Normal 11.5-15.0 [facility] Comment on above: Performed By: #### L [id number] #### [facility] ([facility]) [address] [place] [address] ERYTHROCYTE MEAN CORPUSCULAR HEMOGLOBIN CONCENTRATION (G/DL) BY AUTOMATED 34.3 g/dL Normal 32.0-35.0 [facility] Comment on above: Performed By: #### L [id number] #### [facility] ([facility]) [address] [place] [address] Hematocrit (Bld) [Volume fraction] 42.0 % Normal 39.0-55.0 [facility] Comment on above: Performed By: #### L [id number] #### [facility] ([facility]) [address] [place] [address] Hemoglobin (Bld) [Mass/Vol] 14.4 g/dL Normal 13.0-17.0 [facility] Comment on above: Performed By: #### L [id number] #### [facility] ([facility]) [address] [place] [address] MCH (RBC) [Entitic mass] 31.0 pg Normal 27.0-33.0 [facility] Comment on above: Performed By: #### L [id number] #### [facility] ([facility]) [address] [place] [address] MCV (RBC) [Entitic vol] 90.3 fL Normal 82.0-98.0 [facility] Comment on above: Performed By: #### L [id number] #### [facility] ([facility]) [address] [place] [address] PLATELETS (10*3/UL) IN BLOOD AUTOMATED COUNT 163 10*3/uL Normal 150-400 [facility] Comment on above: Performed By: #### L [id number] #### [facility] ([facility]) [address] [place] [address] RBC (Bld) [#/Vol] 4.65 10*6/uL Normal 4.20-5.70 [facility] Comment on above: Performed By: #### L [id number] #### [facility] ([facility]) [address] [place] [address] WBC (Bld) [#/Vol] 8.72 10*3/uL Normal 4.00-10.60 [facility] Comment on above: Performed By: #### L [id number] #### [facility] ([facility]) [address] [place] [address] POCT GLUCOSE METER UNSOLICIT ED RESULTSon 01-26-2023 Glucose [Mass/Vol] 195 mg/dL High 70-105 [facility] Comment on above: Order Comment: Waive d Testing in the ED is performed under the ED CLIA certificate #[id number]. Result Comment: [email or web address] Performed By: #### L [id number] #### [facility] ([facility]) [address] [place] [address] Glucose [Mass/Vol] 155 mg/dL High 70-105 [facility] Comment on above: Order Comment: Waive d Testing in the ED is performed under the ED CLIA certificate #[id number]. Result Comment: [email or web address] Performed By: #### L [id number] ####[facility] ([facility])[address] [place] [address] Glucose [Mass/Vol] 120 mg/dL High 70-105 [facility] Comment on above: Order Comment: Waive d Testing in the ED is performed under the ED CLIA certificate #[id number]. Result Comment: [email or web address] Performed By: #### L [id number] ####[facility] ([facility])[address] [facility] [address] 30on 01-25-2023 30 The patient is Moder ately Stable - Low risk of patient condition declining or worsening The patient's goals for the shift include rest The clinical goals for the shift include VSS, cath site stable Normal [facility] 30 The patient is Moder ately Stable [...] to discharge with patient and caregiver Normal [facility] ANTI-XA (HEPARIN LEVEL)on HEPARIN UNFRACTIONATED (U/ML) IN PPP BY CHROMOGENIC METHOD 0.88 IU/mL High 0.3-0.7 [facility] Comment on above: Order Comment: Anti- Xa (Heparin level) added per protocol. Result Comment: Rhona roxaban and Apixaban will interfere with the anti Xa assay used to monitor UFH and LMWH. Performed By: #### L [id number] ####[facility] ([facility])[address] [place] [address] APTTon 01-25-2023 ACTIVATED PARTIAL THROMBOPLASTIN TIME IN PPP BY COAGULATION ASSAY 153.8 Seconds Critically high 25.0-35.0 [facility] Comment on above: Order Comment: Check aPTT every 6 hours while on heparin infusion, or per protocol. Result Comment: Clin ical significance of the APTT is questionable in the presence of heparin. Performed By: #### L [id number] #### [facility] ([facility]) [address] [place] [address] B-TYPE NATRIURETIC PEPTIDEon 01-25-2023 Natriuretic peptide B (Bld) [Mass/Vol] 579 pg/mL High 0-100 [facility] Comment on above: Performed By: #### L [id number] ####[facility] ([facility])[address] [place] [address] BASIC METABOLIC PANELon 12-31 Anion gap [Moles/Vol] 15 mmol/L Normal 7-20 [facility] Comment on above: Performed By: #### L [id number] #### [facility] ([facility]) [address] [place] [address] Calcium [Mass/Vol] 9.6 mg/dL Normal 8.6-10.3 [facility] Comment on above: Performed By: #### L [id number] #### [facility] ([facility]) [address] [place] [address] Chloride [Moles/Vol] 103 mmol/L Normal 98-107 [facility] Comment on above: Performed By: #### L [id number] #### [facility] ([facility]) [address] [place] [address] CO2 [Moles/Vol] 27 mmol/L Normal 21-31 [facility] Comment on above: Performed By: #### L [id number] #### [facility] ([facility]) [address] [place] [address] Creatinine [Mass/Vol] 1.83 mg/dL High 0.70-1.30 [facility] Comment on above: Performed By: #### L [id number] #### [facility] ([facility]) [address] [place] [address] GLOMERULAR FILTRATION RATE ML/MIN/1.73 SQ M.PREDICTED 39.0 mL/min/1.73m*2 Low >60.0 [facility] Comment on above: Result Comment: [facility]???s estimated glomerular filtration rate (eGFR) [...] individuals. Performed By: #### L [id number] #### [facility] ([facility]) [address] [place] [address] Glucose [Mass/Vol] 168 mg/dL High 70-100 [facility] Comment on above: Performed By: #### L [id number] #### [facility] ([facility]) [address] [place] [address] Potassium [Moles/Vol] 4.7 mmol/L Normal 3.5-5.1 [facility] Comment on above: Performed By: #### L [id number] #### [facility] ([facility]) [address] [place] [address] Sodium [Moles/Vol] 140 mmol/L Normal 136-145 [facility] Comment on above: Performed By: #### L [id number] #### [facility] ([facility]) [address] [address] Urea nitrogen [Mass/Vol] 28 mg/dL High 7-25 [facility] Comment on above: Performed By: #### L [id number] #### [facility] ([facility]) [address] [place] [address] UREA NITROGEN/CREATININE (MASS RATIO) IN SER/PLAS 15.3 Normal [facility] Comment on above: Performed By: #### L [id number] #### [facility] ([facility]) [address] [address] CBCon 01-25-2023 Erythrocyte distribution width (RBC) [Ratio] 13.1 % Normal 11.5-15.0 [facility] Comment on above: Performed By: #### L [id number] ####[facility] ([facility])[address] [place] [address] ERYTHROCYTE MEAN CORPUSCULAR HEMOGLOBIN CONCENTRATION (G/DL) BY AUTOMATED 33.7 g/dL Normal 32.0-35.0 [facility] Comment on above: Performed By: #### L [id number] ####[facility] ([facility])[address] [place] [address] Hematocrit (Bld) [Volume fraction] 46.3 % Normal 39.0-55.0 [facility] Comment on above: Performed By: #### L [id number] ####[facility] ([facility])[address] [place] [address] Hemoglobin (Bld) [Mass/Vol] 15.6 g/dL Normal 13.0-17.0 [facility] Comment on above: Performed By: #### L [id number] ####[facility] ([facility])[address] [place] [address] MCH (RBC) [Entitic mass] 30.7 pg Normal 27.0-33.0 [facility] Comment on above: Performed By: #### L [id number] ####[facility] ([facility])[address] [address] MCV (RBC) [Entitic vol] 91.1 fL Normal 82.0-98.0 [facility] Comment on above: Performed By: #### L [id number] ####[facility] ([facility])[address] [place] [address] PLATELETS (10*3/UL) IN BLOOD AUTOMATED COUNT 185 10*3/uL Normal 150-400 [facility] Comment on above: Performed By: #### L [id number] ####[facility] ([facility])[address] [place] [address] RBC (Bld) [#/Vol] 5.08 10*6/uL Normal 4.20-5.70 [facility] Comment on above: Performed By: #### L [id number] ####[facility] ([facility])[address] [address] WBC (Bld) [#/Vol] 8.91 10*3/uL Normal 4.00-10.60 [facility] Comment on above: Performed By: #### L [id number] ####[facility] ([facility])[address] [place] [address] CONSULTon 01-25-2023 CONSULT ------ -- Attestation signed [...] was a direct transfer from [facility], the patient is known to [...] artery stenosis, Coronary artery disease, Diabetes mellitus ([facility]), Hyperlipidemia, Hypertension, PVD (peripheral vascular disease) ([facility]), and Third degree heart block ([facility]). Surgical History He has a past [...] mg by mouth in the morning. HYDROcodone-acetaminophen (Satin) 5-325 mg tablet TAKE 1 TABLET BY [...] 93 10 (more content not included)... Normal [facility] HPon 01-25-2023 HP H&P reviewed. The jaron mark was examined and there are no changes to the H&P. 72 y.o. male was a direct transfer from [facility], the patient is known to have Coronary artery disease s/p CABG and multiple PCI in the past, PAD, hyperlipidemia, hypertension. The patient has been having worsening chest pain for the last 2 months which got much worse yesterday, the patient went to the ER his troponin was positive he was referred for further evaluation management to [facility]. The patient had coronary angiography and December 2021 showed patent LAD/MENJIVAR graft, patent SVG to OM and PDA. Patient will undergo LHC to evaluate CAD and look for patency of grafts and previously placed stents. Risks and benefits were discussed in detail with patient and agreed to proceed. Normal [facility] PLATELET COUNTon 01-25-2023 PLATELETS (10*3/UL) IN BLOOD AUTOMATED COUNT 183 10*3/uL Normal 150-400 [facility] Comment on above: Performed By: #### L [id number] #### [facility] ([facility]) [address] [place] [address] POCT GLUCOSE METER UNSOLICIT ED RESULTSon 01-25-2023 Glucose [Mass/Vol] 155 mg/dL High 70-105 [facility] Comment on above: Order Comment: Waive d Testing in the ED is performed under the ED CLIA certificate #[id number]. Result Comment: [email or web address] Performed By: #### L [id number] ####[facility] ([facility])[address] [facility] [address] Glucose [Mass/Vol] 211 mg/dL High 70-105 [facility] Comment on above: Order Comment: Waive d Testing in the ED is performed under the ED CLIA certificate #[id number]. Result Comment: [email or web address] Performed By: #### L [id number] ####[facility] ([facility])[address] [place] [address] Glucose [Mass/Vol] 143 mg/dL High 70-105 [facility] Comment on above: Order Comment: Waive d Testing in the ED is performed under the ED CLIA certificate #[id number]. Result Comment: [email or web address] Performed By: #### L [id number] ####[facility] ([facility])[address] [facility] [address] TROPONIN Ion 01-25-2023 Troponin I.cardiac [Mass/Vol] 1.75 ng/mL Critically high 0.00-0.04 [facility] Comment on above: Result Comment: M-TR OPONIN INITIAL CRITICAL HIGH; RESPUN AND RETESTED Performed By: #### L [id number] #### [facility] ([facility]) [address] [place] [address] Office Visiton 01-17-2023 Follow-up visit [id number] Lani Lizama 1950 M Date Provider Department Center 01/17/2023 [facility] Family History Problem Relation Age of Onset Heart attack Mother Other Father Other Brother Heart attack Maternal Grandmother Heart attack Maternal Grandfather Family Status - Relation Status Age at Mother Father Brother Maternal Grandmother Maternal Grandfather Level of Service:12507 [facility] OFFICE/OUTPATIENT ESTABLISHED MOD MDM 30-39 MIN Normal [facility] CT CHEST WO CONon 08-09-2022 [...] by: HAZEL SCHILLING Date: 2022-08-09 14:00 Normal [facility] A1C HEMOGLOBINon 06-26-2022 HbA1c (Bld) [Mass fraction] 7.4 % [employer] Other Glucose - FINGER STICKon Glucose [Mass/Vol] 267 mg/dL [employer] Other HbA1c (Bld) [Mass fraction]o n 06-26-2022 A1C HEMOGLOBIN [employer] [facility] [employer] Other PTH INTACTon 06-26-2022 PTH, Intact 37 pg/mL Normal 15-65 [facility] Comment on above: Performed By: #### C MP, DOMDM #### [facility] [address] [place] [address] Dr. Mirza Sadler FERRITINon 06-25-2022 Ferritin [Mass/Vol] 269.0 ng/mL Normal 26.0-388.0 [facility] Comment on above: Performed By: #### B DIGITAL MARKETING SPECIALIST #### [facility] [address] [place] [address] Dr. iMrza Sadler HEMOGRAM AND PLATELon 2022 Hematocrit (Bld) [Volume fraction] 44.7 % Normal 42.0-54.0 [facility] Comment on above: Performed By: #### P T, PTT #### [facility] [address] [place] [address] Dr. Mirza Sadler Hemoglobin (Bld) [Mass/Vol] 15.1 g/dL Normal 14.0-18.0 [facility] Comment on above: Performed By: #### P T, PTT #### [facility] [address] [place] [address] Dr. Mirza Sadler MCH (RBC) [Entitic mass] 30.0 pg Normal 25.9-34.0 [facility] Comment on above: Performed By: #### P T, PTT #### [facility] [address] [place] [address] Dr. Mirza Sadler MCHC (RBC) [Mass/Vol] 33.8 g/dL Normal 29.9-35.2 [facility] Comment on above: Performed By: #### P T, PTT #### [facility] [address] [place] [address] Dr. Mirza Sadler MCV (RBC) [Entitic vol] 88.9 fL Normal 80.0-94.0 [facility] Comment on above: Performed By: #### P T, PTT #### [facility] [address] [place] [address] Dr. Mirza Sadler PLT 199 103/ul Normal 150-450 [facility] Comment on above: Performed By: #### P T, PTT #### [facility] [address] [place] [address] Dr. Mirza Sadler RBC 5.03 106/ul Normal 4.70-6.10 [facility] Comment on above: Performed By: #### P T, PTT #### [facility] [address] [place] [address] Dr. Mirza Sadler WBC 8.7 103/ul Normal 4.0-11.0 [facility] Comment on above: Performed By: #### P T, PTT #### [facility] [address] [place] [address] Dr. Mirza Sadler IRON AND TIBCon 06-25-2022 % SATURATION 28.6 % Normal [facility] Comment on above: Performed By: #### B DIGITAL MARKETING SPECIALIST #### [facility] [address] [place] [address] Dr. Mirza Sadler Iron [Mass/Vol] 82.0 ug/dL Normal 65.0-175.0 [facility] Comment on above: Performed By: #### B DIGITAL MARKETING SPECIALIST #### [facility] [address] [place] [address] Dr. Mirza Sadler TIBC DIRECT 287.0 ug/dL Normal 250.0-450. 0 [facility] Comment on above: Performed By: #### B DIGITAL MARKETING SPECIALIST #### [facility] [address] [place] [address] Dr. Mirza Sadler MAGNESIUMon 06-25-2022 Magnesium [Mass/Vol] 2.0 mg/dL Normal 1.8-2.4 [facility] Comment on above: Performed By: #### B DIGITAL MARKETING SPECIALIST #### [facility] [address] [place] [address] Dr. Mirza Sadler RENAL FUNCTION PANELon 06-25 Albumin [Mass/Vol] 4.2 g/dL Normal 3.4-5.0 [facility] Comment on above: Performed By: #### B DIGITAL MARKETING SPECIALIST #### [facility] [address] [place] [address] Dr. Mirza Sadler Calcium [Mass/Vol] 9.3 mg/dL Normal 8.5-10.1 [facility] Comment on above: Performed By: #### B DIGITAL MARKETING SPECIALIST #### [facility] [address] [place] [address] Dr. Mirza Sadler Chloride [Moles/Vol] 108 mmol/L Critically high 98-107 [facility] Comment on above: Performed By: #### B DIGITAL MARKETING SPECIALIST #### [facility] [address] [place] [address] Dr. Mirza Sadler CO2 [Moles/Vol] 29.5 mmol/L Normal 21.0-32.0 [facility] Comment on above: Performed By: #### B DIGITAL MARKETING SPECIALIST #### [facility] [address] [address] [address] Mirza Sadler Creatinine [Mass/Vol] 1.87 mg/dL Critically high 0.70-1.30 [facility] Comment on above: Performed By: #### B DIGITAL MARKETING SPECIALIST #### [facility] [address] [address] [address] Mirza Sadler EGFR-AF LAO 43 mL/min/1.73m2 Critically low >=60 [facility] Comment on above: Performed By: #### B DIGITAL MARKETING SPECIALIST #### [facility] [address] [address] [address] Mirza Sadler EGFR-NON AF LAO 36 mL/min/1.73m2 Critically low >=60 [facility] Comment on above: Performed By: #### B DIGITAL MARKETING SPECIALIST #### [facility] [address] [address] [address] Mirza Sadler Glucose [Mass/Vol] 181 mg/dL Critically high 74-106 [facility] Comment on above: Performed By: #### B DIGITAL MARKETING SPECIALIST #### [facility] [address] [place] [address] Dr. Mirza Sadler Phosphate [Mass/Vol] 4.8 mg/dL Critically high 2.6-4.7 [facility] Comment on above: Performed By: #### B DIGITAL MARKETING SPECIALIST #### [facility] [address] [address] [address] Mirza Sadler Potassium [Moles/Vol] 4.8 mmol/L Normal 3.5-5.1 [facility] Comment on above: Performed By: #### B DIGITAL MARKETING SPECIALIST #### [facility] [address] [address] [address] Mirza Sadler Sodium [Moles/Vol] 146 mmol/L Critically high 136-145 [facility] Comment on above: Performed By: #### B DIGITAL MARKETING SPECIALIST #### [facility] [address] [place] [address] Dr. Mirza Sadler Urea nitrogen [Mass/Vol] 40.0 mg/dL Critically high 7.0-18.0 [facility] Comment on above: Performed By: #### B DIGITAL MARKETING SPECIALIST #### [facility] [address] [place] [address] Dr. Mirza Sadler UA RANDOM W/MICROSCOPICon BACTERIA NONE SEEN Normal NONE SEEN [facility] Comment on above: Performed By: #### H STROPN #### [facility] [address] [place] [address] Dr. Mirza Sadler Bilirubin Ql (U) Negative Normal NEGATIVE [facility] Comment on above: Performed By: #### H STROPN #### [facility] [address] [place] [address] Dr. Mirza Sadler CAST NONE SEEN Normal NONE SEEN [facility] Comment on above: Performed By: #### H STROPN #### [facility] [address] [place] [address] Dr. Mirza Sadler Clarity (U) CLEAR Normal CLEAR [facility] Comment on above: Performed By: #### H STROPN #### [facility] [address] [place] [address] Dr. Mirza Sadler Color (U) LT. YELLOW Normal YELLOW [facility] Comment on above: Performed By: #### H STROPN #### [facility] [address] [place] [address] Dr. Mirza Sadler Crystals LM Nom (Urine sed) NONE SEEN Normal NONE SEEN [facility] Comment on above: Performed By: #### H STROPN #### [facility] [address] [place] [address] Dr. Mirza Sadler Epithelial cells LM Ql (Urine sed) FEW Abnormal NONE SEEN /RARE [facility] Comment on above: Performed By: #### H STROPN #### [facility] [address] [place] [address] Dr. Mirza Sadler Glucose Ql (U) 500 mg/dl Abnormal NEGATIVE [facility] Comment on above: Performed By: #### H STROPN #### [facility] [address] [place] [address] Dr. Mirza Sadler Hemoglobin Ql (U) Negative Normal NEGATIVE [facility] Comment on above: Performed By: #### H STROPN #### [facility] [address] [address] [address] Mirza Sadler Ketones Ql (U) Negative Normal NEGATIVE [facility] Comment on above: Performed By: #### H STROPN #### [facility] [address] [address] [address] Mirza Sadler LEUKOCYTES Negative Normal NEGATIVE [facility] Comment on above: Performed By: #### H STROPN #### [facility] [address] [address] [address] Mirza Sadler MUCOUS NONE SEEN Normal NONE SEEN [facility] Comment on above: Performed By: #### H STROPN #### [facility] [address] [place] [address] Dr. Mirza Sadler Nitrite Ql (U) Negative Normal NEGATIVE [facility] Comment on above: Performed By: #### H STROPN #### [facility] [address] [place] [address] Dr. Mirza Sadler pH (U) 5.5 [pH] Normal 5-9 [facility] Comment on above: Performed By: #### H STROPN #### [facility] [address] [place] [address] Dr. Mirza Sadler RBC 0-2 Normal 0-2 [facility] Comment on above: Performed By: #### H STROPN #### [facility] [address] [address] [address] Mirza Sadler SPEC GRAVITY 1.015 Normal 1.005-<=1. 025 [facility] Comment on above: Performed By: #### H STROPN #### [facility] [address] [place] [address] Dr. Mirza Sadler UA PROTEIN Negative Normal NEGATIVE/ TRACE [facility] Comment on above: Performed By: #### H STROPN #### [facility] [address] [address] [address] Mirza Sadler Urobilinogen Qn (U) 0.2 {Luisito'U}/dL Normal 0.2 - 1. 0 [facility] Comment on above: Performed By: #### H STROPN #### [facility] [address] [place] [address] Dr. Mirza Sadler WBC NONE SEEN Normal NONE SEEN [facility] Comment on above: Performed By: #### H STROPN #### [facility] [address] [place] [address] Dr. Mirza Sadler URIC ACID SERUMon 06-25-2022 Urate [Mass/Vol] 6.1 mg/dL Normal 3.5-7.2 [facility] Comment on above: Performed By: #### B DIGITAL MARKETING SPECIALIST #### [facility] [address] [place] [address] Dr. Mirza Sadler URINE T PROTEIN CREAT RATIOo n 06-25-2022 Protein (U) [Mass/Vol] 9.7 mg/dL Normal <=12.0 [facility] Comment on above: Performed By: #### C TEGAN MARIN #### [facility] [address] [place] [address] Dr. Mirza Sadler UR PROT CREAT RAT 0.14 Normal [facility] Comment on above: Performed By: #### C TEGAN MARIN #### [facility] [address] [place] [address] Dr. Mirza Sadler URINE CREAT 71.45 mg/dL Normal 20.00-300. 00 [facility] Comment on above: Performed By: #### C TEGAN MARIN #### [facility] [address] [place] [address] Dr. Mirza Sadler VITAMIN D 25 OHon 06-25-2022 VIT D 25-OH 44.7 ng/mL Normal [facility] Comment on above: Performed By: #### E RUR #### [facility] [address] [place] [address] Dr. Mirza Sadler VIT D RANGES SEE BELOW Normal [facility] Comment on above: Result Comment: <20 ng/mL Vit D deficient 20 - <30 ng/mL Vit D insufficient 30 - 100 ng/mL Vit D sufficient >100 ng/mL Potential Toxicity Performed By: #### E RUR #### [facility] [address] [address] [address] Mirza Sadler LIPID PROFILEon 06-18-2022 CHOL-HDL RATIO NORM SEE BELOW Normal [facility] Comment on above: Result Comment: 3.3 - 4.4 LOW RISK 4.4 - 7.1 AVERAGE RISK 7.1 - 11.0 MODERATE RISK >11.0 HIGH RISK Performed By: #### H STROPN #### [facility] [address] [address] [address] Mirza Sadler Cholesterol [Mass/Vol] 136 mg/dL Normal <=200 [facility] Comment on above: Performed By: #### H STROPN #### [facility] [address] [address] [address] Mirza Sadler Cholesterol in HDL [Mass/Vol] 38 mg/dL Critically low 40-60 [facility] Comment on above: Performed By: #### H STROPN #### [facility] [address] [address] [address] Mirza Sadler Cholesterol in LDL [Mass/Vol] 69.6 mg/dL Normal [facility] Comment on above: Performed By: #### H STROPN #### [facility] [address] [address] [address] Mirza Sadler Cholesterol.total/Cho lesterol in HDL [Mass ratio] 3.6 {ratio} Normal [facility] Comment on above: Performed By: #### H STROPN #### [facility] [address] [address] [address] Mirza Sadler HDL NORMAL > or = 60 mg/dl - LO W CARDIOVASCULAR RISK <40 mg/dl - HIGH CARDIOVASCULAR RISK Normal [facility] Comment on above: Performed By: #### H STROPN #### [facility] [address] [address] [address] Mirza Sadler LDL CALC NORMAL SEE BELOW Normal [facility] Comment on above: Result Comment: <100 mg/dl OPTIMAL 100 - 129 mg/dl NEAR OR ABOVE OPTIMAL 130 - 159 mg/dl BORDERLINE HIGH 160 - 189 mg/dl HIGH >190 mg/dl VERY HIGH Performed By: #### H STROPN #### [facility] [address] [place], [place] [address] Dr. Mirza Sadler Triglyceride [Mass/Vol] 142 mg/dL Normal <=150 [facility] Comment on above: Performed By: #### H STROPN #### [facility] [address] [place], [place] [address] Dr. Mirza Sadler VLDL CALC 28.4 mg/dL Normal [facility] Comment on above: Performed By: #### H STROPN #### [facility] [address] [place], [place] [address] CHEST WO CONon [...] HIGINIO FLANAGAN Date: 2022-06-05 16:58 Normal [facility] CT CHEST WO CON [employer] Other PROF CHEM 8 (BAS METB)on Anion gap [Moles/Vol] 10.2 mmol/L Normal Th [facility] Comment on above: Performed By: #### B DIGITAL MARKETING SPECIALIST #### [facility] [address] [address] [address] Mirza Sadler Calcium [Mass/Vol] 8.9 mg/dL Normal 8.5-10.1 [facility] Comment on above: Performed By: #### B DIGITAL MARKETING SPECIALIST #### [facility] [address] [address] [address] Mirza Sadler Chloride [Moles/Vol] 101 mmol/L Normal 98-107 [facility] Comment on above: Performed By: #### B DIGITAL MARKETING SPECIALIST #### [facility] [address] [place] [address] Dr. Mirza Sadler CO2 [Moles/Vol] 31.2 mmol/L Normal 21.0-32.0 [facility] Comment on above: Performed By: #### B DIGITAL MARKETING SPECIALIST #### [facility] [facility] [address] [place] [address] Dr. Mirza Sadler Creatinine [Mass/Vol] 1.91 mg/dL Critically high 0.70-1.30 [facility] Comment on above: Performed By: #### B DIGITAL MARKETING SPECIALIST #### [facility] [address] [place] [address] Dr. Mirza Sadler EGFR-AF LAO 42 mL/min/1.73m2 Critically low >=60 [facility] Comment on above: Performed By: #### B DIGITAL MARKETING SPECIALIST #### [facility] [address] [place] [address] Dr. Mirza Sadler EGFR-NON AF LAO 35 mL/min/1.73m2 Critically low >=60 [facility] Comment on above: Performed By: #### B DIGITAL MARKETING SPECIALIST #### [facility] [address] [address] [address] Mirza Sadler Glucose [Mass/Vol] 242 mg/dL Critically high 74-106 [facility] Comment on above: Performed By: #### B DIGITAL MARKETING SPECIALIST #### [facility] [address] [place] [address] Dr. Mirza Sadler Potassium [Moles/Vol] 4.4 mmol/L Normal 3.5-5.1 [facility] Comment on above: Performed By: #### B DIGITAL MARKETING SPECIALIST #### [facility] [address] [place] [address] Dr. Mirza Sadler Sodium [Moles/Vol] 138 mmol/L Normal 136-145 [facility] Comment on above: Performed By: #### B DIGITAL MARKETING SPECIALIST #### [facility] [address] [place] [address] Dr. Mirza Sadler Urea nitrogen [Mass/Vol] 33.0 mg/dL Critically high 7.0-18.0 [facility] Comment on above: Performed By: #### B DIGITAL MARKETING SPECIALIST #### [facility] [address] [place] [address] Dr. Mirza Sadler Urea nitrogen/Creatinine [Mass ratio] 17.3 mg/mg Normal [facility] Comment on above: Performed By: #### B DIGITAL MARKETING SPECIALIST #### [facility] [address] [place] [address] Dr. Mirza Sadler PROF CHEM 8 (BAS METB)on Anion gap [Moles/Vol] 10.7 mmol/L Normal [facility] Comment on above: Performed By: #### P T, PTT #### [facility] [address] [place] [address] Dr. Mirza Sadler Calcium [Mass/Vol] 8.9 mg/dL Normal 8.5-10.1 [facility] Comment on above: Performed By: #### P T, PTT #### [facility] [address] [place] [address] Dr. Mirza Sadler Chloride [Moles/Vol] 104 mmol/L Normal 98-107 [facility] Comment on above: Performed By: #### P T, PTT #### [facility] [address] [place] [address] Dr. Mirza Sadler CO2 [Moles/Vol] 29.4 mmol/L Normal 21.0-32.0 [facility] Comment on above: Performed By: #### P T, PTT #### [facility] [address] [place] [address] Dr. Mirza Sadler Creatinine [Mass/Vol] 1.75 mg/dL Critically high 0.70-1.30 [facility] Comment on above: Performed By: #### P T, PTT #### [facility] [address] [address] [address] Mirza Sadler EGFR-AF LAO 47 mL/min/1.73m2 Critically low >=60 [facility] Comment on above: Performed By: #### P T, PTT #### [facility] [address] [address] [address] Mirza Sadler EGFR-NON AF LAO 39 mL/min/1.73m2 Critically low >=60 [facility] Comment on above: Performed By: #### P T, PTT #### [facility] [address] [address] [address] Mirza Sadler Glucose [Mass/Vol] 191 mg/dL Critically high 74-106 [facility] Comment on above: Performed By: #### P T, PTT #### [facility] [address] [address] [address] Mirza Sadler Potassium [Moles/Vol] 4.1 mmol/L Normal 3.5-5.1 [facility] Comment on above: Performed By: #### P T, PTT #### [facility] [address] [place] [address] Dr. Mirza Sadler Sodium [Moles/Vol] 140 mmol/L Normal 136-145 [facility] Comment on above: Performed By: #### P T, PTT #### [facility] [address] [address] [address] Mirza Sadler Urea nitrogen [Mass/Vol] 31.0 mg/dL Critically high 7.0-18.0 [facility] Comment on above: Performed By: #### P T, PTT #### [facility] [address] [place] [address] Dr. Mirza Sadler Urea nitrogen/Creatinine [Mass ratio] 17.7 mg/mg Normal [facility] Comment on above: Performed By: #### P T, PTT #### [facility] [address] [place] [address] Dr. Mirza Sadler XR CHEST 2 Von [...] by: HIGINIO FLANAGAN Date: 2022-03-22 16:12 Normal [facility] A1C HEMOGLOBINon 03-20-2022 HbA1c (Bld) [Mass fraction] 6.7 % [employer] Other Glucose - FINGER STICKon Glucose [Mass/Vol] 193 mg/dL [employer] Other HbA1c (Bld) [Mass fraction]o n 03-20-2022 A1C HEMOGLOBIN [facility] [employer] Other BNPon 03-13-2022 Natriuretic peptide B (Bld) [Mass/Vol] 4825.0 pg/mL Critically high <=900.0 [facility] Comment on above: Performed By: #### E RUR #### [facility] [address] [address] [address] Mirza Sadler CBC AUTO DIFFon 03-13-2022 BASO # 0.0 103/ul Normal 0.0-0.1 [facility] Comment on above: Performed By: #### E RUR #### [facility] [address] [address] [address] Mirza Sadler Basophils/100 WBC (Bld) 0.6 % Normal 0.2-2.0 [facility] Comment on above: Performed By: #### E RUR #### [facility] [address] [address] [address] Mirza Sadler EO # 0.1 103/ul Normal 0.0-0.7 [facility] Comment on above: Performed By: #### E RUR #### [facility] [address] [place] [address] Dr. Mirza Sadler Eosinophils/100 WBC (Bld) 1.8 % Normal 0.9-7.0 [facility] Comment on above: Performed By: #### E RUR #### [facility] [address] [place] [address] Dr. Mirza Sadler Erythrocyte distribution width (RBC) [Ratio] 14.4 % Normal 11.0-15.0 [facility] Comment on above: Performed By: #### E RUR #### [facility] [address] [place] [address] Dr. Mirza Sadler Hematocrit (Bld) [Volume fraction] 36.1 % Critically low 42.0-54.0 [facility] Comment on above: Performed By: #### E RUR #### [facility] [address] [place] [address] Dr. Mirza Sadler Hemoglobin (Bld) [Mass/Vol] 11.9 g/dL Critically low 14.0-18.0 [facility] Comment on above: Performed By: #### E RUR #### [facility] [address] [place] [address] Dr. Mirza Sadler IG # 0.02 10e3/ul Normal 0.00-0.03 [facility] Comment on above: Performed By: #### E RUR #### [facility] [address] [place] [address] Dr. Mirza Sadler IG % 0.3 % Normal 0.0-0.5 [facility] Comment on above: Performed By: #### E RUR #### [facility] [address] [place] [address] Dr. Mirza Sadler LYMPH # 1.5 103/ul Normal 1.2-3.8 [facility] Comment on above: Performed By: #### E RUR #### [facility] [address] [place] [address] Dr. Mirza Sadler Lymphocytes/100 WBC (Bld) 22.6 % Normal 20.5-60.0 [facility] Comment on above: Performed By: #### E RUR #### [facility] [address] [place] [address] Dr. Mirza Sadler MANUAL DIFF REQ NO Normal [facility] Comment on above: Performed By: #### E RUR #### [facility] [address] [place] [address] Dr. Mirza Sadler MCH (RBC) [Entitic mass] 29.0 pg Normal 25.9-34.0 [facility] Comment on above: Performed By: #### E RUR #### [facility] [address] [place] [address] Dr. Mirza Sadler MCHC (RBC) [Mass/Vol] 33.0 g/dL Normal 29.9-35.2 [facility] Comment on above: Performed By: #### E RUR #### [facility] [address] [place] [address] Dr. Mirza Sadler MCV (RBC) [Entitic vol] 88.0 fL Normal 80.0-94.0 [facility] Comment on above: Performed By: #### E RUR #### [facility] [address] [place] [address] Dr. Mirza Sadler MONO # 0.7 103/ul Normal 0.3-0.8 [facility] Comment on above: Performed By: #### E RUR #### [facility] [address] [place] [address] Dr. Mirza Sadler Monocytes/100 WBC (Bld) 10.2 % Normal 1.7-12.0 [facility] Comment on above: Performed By: #### E RUR #### [facility] [address] [place] [address] Dr. Mirza Sadler NEUT # 4.3 103/ul Normal 1.4-6.5 [facility] Comment on above: Performed By: #### E RUR #### [facility] [address] [place] [address] Dr. Mirza Sadler Neutrophils/100 WBC (Bld) 64.5 % Normal 43.0-75.0 [facility] Comment on above: Performed By: #### E RUR #### [facility] [address] [address] [address] Mirza Sadler Platelet mean volume (Bld) [Entitic vol] 9.7 fL Normal 9.5-13.5 [facility] Comment on above: Performed By: #### E RUR #### [facility] [address] [address] [address] Mirza Sadler PLT 149 103/ul Critically low 150-450 [facility] Comment on above: Performed By: #### E RUR #### [facility] [address] [address] [address] Mirza Sadler RBC 4.10 106/ul Critically low 4.70-6.10 [facility] Comment on above: Performed By: #### E RUR #### [facility] [address] [address] [address] Mirza Sadler WBC 6.6 103/ul Normal 4.0-11.0 [facility] Comment on above: Performed By: #### E RUR #### [facility] [address] [address] [address] Mirza Sadler PROF CHEM 8 (BAS METB)on Anion gap [Moles/Vol] 14.6 mmol/L Normal [facility] Comment on above: Performed By: #### E RUR #### [facility] [address] [address] [address] Mirza Sadler Calcium [Mass/Vol] 8.5 mg/dL Normal 8.5-10.1 [facility] Comment on above: Performed By: #### E RUR #### [facility] [address] [address] [address] Mirza Sadler Chloride [Moles/Vol] 104 mmol/L Normal 98-107 [facility] Comment on above: Performed By: #### E RUR #### [facility] [address] [address] [address] Mirza Sadler CO2 [Moles/Vol] 22.7 mmol/L Normal 21.0-32.0 [facility] Comment on above: Performed By: #### E RUR #### [facility] [address] [address] [address] Mirza Sadler Creatinine [Mass/Vol] 1.78 mg/dL Critically high 0.70-1.30 [facility] Comment on above: Performed By: #### E RUR #### [facility] [address] [address] [address] Mirza Sadler EGFR-AF LAO 46 mL/min/1.73m2 Critically low >=60 [facility] Comment on above: Performed By: #### E RUR #### [facility] [address] [address] [address] Mirza Sadler EGFR-NON AF LAO 38 mL/min/1.73m2 Critically low >=60 [facility] Comment on above: Performed By: #### E RUR #### [facility] [address] [address] [address] Mirza Sadler Glucose [Mass/Vol] 121 mg/dL Critically high 74-106 [facility] Comment on above: Performed By: #### E RUR #### [facility] [address] [address] [address] Mirza Sadler Potassium [Moles/Vol] 3.3 mmol/L Critically low 3.5-5.1 [facility] Comment on above: Performed By: #### E RUR #### [facility] [address] [address] [address] Mirza Sadler Sodium [Moles/Vol] 138 mmol/L Normal 136-145 [facility] Comment on above: Performed By: #### E RUR #### [facility] [address] [address] [address] Mirza Sadler Urea nitrogen [Mass/Vol] 30.0 mg/dL Critically high 7.0-18.0 [facility] Comment on above: Performed By: #### E RUR #### [facility] [address] [place] [address] Dr. Mirza Sadler Urea nitrogen/Creatinine [Mass ratio] 16.9 mg/mg Normal [facility] Comment on above: Performed By: #### E RUR #### [facility] [address] [place] [address] Dr. Mirza Sadler BNPon 03-12-2022 Natriuretic peptide B (Bld) [Mass/Vol] 7452.0 pg/mL Critically high <=900.0 [facility] Comment on above: Performed By: #### C MP, CMADM #### [facility] [address] [place] [address] Dr. Mirza Sadler CBC AUTO DIFFon 03-12-2022 BASO # 0.0 103/ul Normal 0.0-0.1 [facility] Comment on above: Performed By: #### P T, PTT #### [facility] [address] [place] [address] Dr. Mirza Sadler Basophils/100 WBC (Bld) 0.4 % Normal 0.2-2.0 [facility] Comment on above: Performed By: #### P T, PTT #### [facility] [address] [place] [address] Dr. Mirza Sadler EO # 0.0 103/ul Normal 0.0-0.7 [facility] Comment on above: Performed By: #### P T, PTT #### [facility] [address] [place] [address] Dr. Mirza Sadler Eosinophils/100 WBC (Bld) 0.2 % Critically low 0.9-7.0 [facility] Comment on above: Performed By: #### P T, PTT #### [facility] [address] [place] [address] Dr. Mirza Sadler Erythrocyte distribution width (RBC) [Ratio] 14.6 % Normal 11.0-15.0 [facility] Comment on above: Performed By: #### P T, PTT #### [facility] [address] [place] [address] Dr. Mirza Sadler Hematocrit (Bld) [Volume fraction] 37.8 % Critically low 42.0-54.0 [facility] Comment on above: Performed By: #### P T, PTT #### [facility] [address] [place] [address] Dr. Mirza Sadler Hemoglobin (Bld) [Mass/Vol] 12.2 g/dL Critically low 14.0-18.0 [facility] Comment on above: Performed By: #### P T, PTT #### [facility] [address] [place] [address] Dr. Mirza Sadler IG # 0.03 10e3/ul Normal 0.00-0.03 [facility] Comment on above: Performed By: #### P T, PTT #### [facility] [address] [place] [address] Dr. Mirza Sadler IG % 0.3 % Normal 0.0-0.5 [facility] Comment on above: Performed By: #### P T, PTT #### [facility] [address] [place] [address] Dr. Mirza Sadler LYMPH # 1.2 103/ul Normal 1.2-3.8 [facility] Comment on above: Performed By: #### P T, PTT #### [facility] [address] [place] [address] Dr. Mirza Sadler Lymphocytes/100 WBC (Bld) 11.5 % Critically low 20.5-60.0 [facility] Comment on above: Performed By: #### P T, PTT #### [facility] [address] [place] [address] Dr. Mirza Sadler MANUAL DIFF REQ NO Normal [facility] Comment on above: Performed By: #### P T, PTT #### [facility] [address] [place] [address] Dr. Mirza Sadler MCH (RBC) [Entitic mass] 29.0 pg Normal 25.9-34.0 [facility] Comment on above: Performed By: #### P T, PTT #### [facility] [address] [place] [address] Dr. Mirza Sadler MCHC (RBC) [Mass/Vol] 32.3 g/dL Normal 29.9-35.2 [facility] Comment on above: Performed By: #### P T, PTT #### [facility] [address] [place] [address] Dr. Mirza Sadler MCV (RBC) [Entitic vol] 89.8 fL Normal 80.0-94.0 [facility] Comment on above: Performed By: #### P T, PTT #### [facility] [address] [place] [address] Dr. Mirza Sadler MONO # 0.7 103/ul Normal 0.3-0.8 [facility] Comment on above: Performed By: #### P T, PTT #### [facility] [address] [place] [address] Dr. Mirza Sadler Monocytes/100 WBC (Bld) 6.8 % Normal 1.7-12.0 [facility] Comment on above: Performed By: #### P T, PTT #### [facility] [address] [place] [address] Dr. Mirza Sadler NEUT # 8.5 103/ul Critically high 1.4-6.5 [facility] Comment on above: Performed By: #### P T, PTT #### [facility] [address] [place] [address] Dr. Mirza Sadler Neutrophils/100 WBC (Bld) 80.8 % Critically high 43.0-75.0 [facility] Comment on above: Performed By: #### P T, PTT #### [facility] [address] [place] [address] Dr. Mirza Sadler Platelet mean volume (Bld) [Entitic vol] 9.8 fL Normal 9.5-13.5 [facility] Comment on above: Performed By: #### P T, PTT #### [facility] [address] [place] [address] Dr. Mirza Sadler PLT 165 103/ul Normal 150-450 [facility] Comment on above: Performed By: #### P T, PTT #### [facility] [address] [place] [address] Dr. Mirza Sadler RBC 4.21 106/ul Critically low 4.70-6.10 [facility] Comment on above: Performed By: #### P T, PTT #### [facility] [address] [address] [address] Mirza Sadler WBC 10.5 103/ul Normal 4.0-11.0 [facility] Comment on above: Performed By: #### P T, PTT #### [facility] [address] [address] [address] Mirza Sadler ECHOCARDIO M/2D COMPLETEon 1 05-13-2021 ECHOCARDIO M/2D COMPLETE Patient: LANI LIZAMA Exam Date: 03/12/2022 : 1950 Gender:M Ordering : DR OBDULIO ALVA . Admission #: [id number] Family : DR HARLEY CRESPO D.O. Order #: [id number] CLICK HERE TO VIEW EXAM ECHOCARDIOGRAM REPORT PROCEDURE: CARDIO PULMONARY ECHOCARDIO M/2D COMP INDICATIONS: Elevated TROP and BNPChest pain, recent [place], CHF, CBAG x 5, PTCA x 7 [...] Foreman M.D. on 03/13/2022 at 17:42 Normal [facility] PROF CHEM 8 (BAS METB)on Anion gap [Moles/Vol] 17.8 mmol/L Normal [facility] Comment on above: Performed By: #### C TEGAN MARIN #### [facility] [address] [place], [place] [address] Dr. Mirza Sadler Calcium [Mass/Vol] 8.6 mg/dL Normal 8.5-10.1 [facility] Comment on above: Performed By: #### TEGAN Hoskins MP #### [facility] [address] [address] [address] Mirza Sadler Chloride [Moles/Vol] 103 mmol/L Normal 98-107 [facility] Comment on above: Performed By: #### C TANIA, CMADM #### [facility] [address] [address] [address] Mirza Sadler CO2 [Moles/Vol] 22.3 mmol/L Normal 21.0-32.0 [facility] Comment on above: Performed By: #### C TANIA, CMADM #### [facility] [address] [address] [address] Mirza Sadler Creatinine [Mass/Vol] 1.81 mg/dL Critically high 0.70-1.30 [facility] Comment on above: Performed By: #### C TANIA, CMADM #### [facility] [address] [address] [address] Mirza Sadler EGFR-AF LAO 45 mL/min/1.73m2 Critically low >=60 [facility] Comment on above: Performed By: #### C TANIA, CMADM #### [facility] [address] [address] [address] Mirza Sadler EGFR-NON AF LAO 37 mL/min/1.73m2 Critically low >=60 [facility] Comment on above: Performed By: #### C TANIA, CMADM #### [facility] [address] [address] [address] Mirza Sadler Glucose [Mass/Vol] 161 mg/dL Critically high 74-106 [facility] Comment on above: Performed By: #### C TANIA, CMADM #### [facility] [address] [address] [address] Mirza Sadler Potassium [Moles/Vol] 4.1 mmol/L Normal 3.5-5.1 [facility] Comment on above: Performed By: #### C TANIA, CMADM #### [facility] [address] [address] [address] Mirza Sadler Sodium [Moles/Vol] 139 mmol/L Normal 136-145 [facility] Comment on above: Performed By: #### C TANIA, CMADM #### [facility] [address] [place] [address] Dr. Mirza Sadler Urea nitrogen [Mass/Vol] 28.0 mg/dL Critically high 7.0-18.0 [facility] Comment on above: Performed By: #### C MP, CMADM #### [facility] [address] [place] [address] Dr. Mirza Sadler Urea nitrogen/Creatinine [Mass ratio] 15.5 mg/mg Normal [facility] Comment on above: Performed By: #### C TANIA, CMADM #### [facility] [address] [place] [address] Dr. Mirza Sadler TROPONIN, HIGH SENSITIVITYon 03-12-2022 HSTROP 54916.5 pg/mL Critically high 4.0-76.1 [facility] Comment on above: Result Comment: CUT- OFF POINTS HAVE BEEN ESTABLISHED BASED ON THE FOURTH UNIVERSAL DEFINITIONS OF MYOCARDIAL INFARCTION. THE UPPER REFERENCE LIMIT (URL) OF TROPONIN, DEFINED THE 99TH PERCENTILE OF cTnI DISTRIBUTION IN A REFERENCE POPULATION, HAS BEEN CONFIRMED THE DECISION THRESHOLD FOR [place] DIAGNOSIS. Performed By: #### C TANIA CMADM #### [facility] [address] [place] [address] Dr. Mirza Sadler BNPon 03-11-2022 Natriuretic peptide B (Bld) [Mass/Vol] 1378.0 pg/mL Critically high <=900.0 [facility] Comment on above: Performed By: #### P T, PTT #### [facility] [address] [place] [address] Dr. Mirza Sadler CARDIAC PARUL 3-6on 2 CK [Catalytic activity/Vol] 139 U/L Normal 39-308 [facility] Comment on above: Performed By: #### E RUR #### [facility] [address] [place] [address] Dr. Mirza Sadler CK.MB [Mass/Vol] 7.50 ng/mL Critically high <=3.60 [facility] Comment on above: Performed By: #### E RUR #### [facility] [address] [place] [address] Dr. Mirza Sadler HSTROP 1419.3 pg/mL Critically high 4.0-76.1 [facility] Comment on above: Result Comment: CUT- OFF POINTS HAVE BEEN ESTABLISHED BASED ON THE FOURTH UNIVERSAL DEFINITIONS OF MYOCARDIAL INFARCTION. THE UPPER REFERENCE LIMIT (URL) OF TROPONIN, DEFINED THE 99TH PERCENTILE OF cTnI DISTRIBUTION IN A REFERENCE POPULATION, HAS BEEN CONFIRMED THE DECISION THRESHOLD FOR [place] DIAGNOSIS. Performed By: #### E RUR #### [facility] [address] [place] [address] Dr. Mirza Sadler CBC AUTO DIFFon 03-11-2022 BASO # 0.1 103/ul Normal 0.0-0.1 [facility] Comment on above: Performed By: #### E RUR #### [facility] [address] [place] [address] Dr. Mirza Sadler Basophils/100 WBC (Bld) 0.5 % Normal 0.2-2.0 [facility] Comment on above: Performed By: #### E RUR #### [facility] [address] [place] [address] Dr. Mirza Sadler EO # 0.2 103/ul Normal 0.0-0.7 [facility] Comment on above: Performed By: #### E RUR #### [facility] [address] [place] [address] Dr. Mirza Sadler Eosinophils/100 WBC (Bld) 1.3 % Normal 0.9-7.0 [facility] Comment on above: Performed By: #### E RUR #### [facility] [address] [place] [address] Dr. Mirza Sadler Erythrocyte distribution width (RBC) [Ratio] 14.6 % Normal 11.0-15.0 [facility] Comment on above: Performed By: #### E RUR #### [facility] [address] [place] [address] Dr. Mirza Sadler Hematocrit (Bld) [Volume fraction] 43.1 % Normal 42.0-54.0 [facility] Comment on above: Performed By: #### E RUR #### [facility] [address] [place] [address] Dr. Mirza Sadler Hemoglobin (Bld) [Mass/Vol] 14.2 g/dL Normal 14.0-18.0 [facility] Comment on above: Performed By: #### E RUR #### [facility] [address] [place] [address] Dr. Mirza Sadler IG # 0.07 10e3/ul Critically high 0.00-0.03 [facility] Comment on above: Performed By: #### E RUR #### [facility] [address] [place] [address] Dr. Mirza Sadler IG % 0.5 % Normal 0.0-0.5 [facility] Comment on above: Performed By: #### E RUR #### [facility] [address] [place] [address] Dr. Mirza Sadler LYMPH # 1.3 103/ul Normal 1.2-3.8 [facility] Comment on above: Performed By: #### E RUR #### [facility] [address] [place] [address] Dr. Mirza Sadler Lymphocytes/100 WBC (Bld) 8.6 % Critically low 20.5-60.0 [facility] Comment on above: Performed By: #### E RUR #### [facility] [address] [place] [address] Dr. Mirza Sadler MANUAL DIFF REQ NO Normal [facility] Comment on above: Performed By: #### E RUR #### [facility] [address] [address] [address] Mirza Sadler MCH (RBC) [Entitic mass] 29.3 pg Normal 25.9-34.0 [facility] Comment on above: Performed By: #### E RUR #### [facility] [address] [place] [address] Dr. Mirza Sadler MCHC (RBC) [Mass/Vol] 32.9 g/dL Normal 29.9-35.2 [facility] Comment on above: Performed By: #### E RUR #### [facility] [address] [place] [address] Dr. Mirza Sadler MCV (RBC) [Entitic vol] 88.9 fL Normal 80.0-94.0 [facility] Comment on above: Performed By: #### E RUR #### [facility] [address] [place] [address] Dr. Mirza Sadler MONO # 0.7 103/ul Normal 0.3-0.8 [facility] Comment on above: Performed By: #### E RUR #### [facility] [address] [place] [address] Dr. Mirza Sadler Monocytes/100 WBC (Bld) 4.3 % Normal 1.7-12.0 [facility] Comment on above: Performed By: #### E RUR #### [facility] [address] [place] [address] Dr. Mirza Sadler NEUT # 12.8 103/ul Critically high 1.4-6.5 [facility] Comment on above: Performed By: #### E RUR #### [facility] [address] [place] [address] Dr. Mirza Sadler Neutrophils/100 WBC (Bld) 84.8 % Critically high 43.0-75.0 [facility] Comment on above: Performed By: #### E RUR #### [facility] [address] [place] [address] Dr. Mirza Sadler Platelet mean volume (Bld) [Entitic vol] 9.9 fL Normal 9.5-13.5 [facility] Comment on above: Performed By: #### E RUR #### [facility] [address] [place] [address] Dr. Mirza Sadler PLT 201 103/ul Normal 150-450 [facility] Comment on above: Performed By: #### E RUR #### [facility] [address] [place] [address] Dr. Mirza Sadler RBC 4.85 106/ul Normal 4.70-6.10 [facility] Comment on above: Performed By: #### E RUR #### [facility] [address] [place] [address] Dr. Mirza Sadler WBC 15.0 103/ul Critically high 4.0-11.0 [facility] Comment on above: Performed By: #### E RUR #### [facility] [address] [place] [address] Dr. Mirza Sadler CULTURE BLOODon 03-11-2022 Microscopic examination of blood, culture Culture Observations: NO GROWTH AT 5 DAYS. Normal [facility] Comment on above: Performed By: #### H STROPN #### [facility] [address] [address] [address] Mirza Sadler Microscopic examination of blood, culture Culture Observations: NO GROWTH AT 5 DAYS. Normal [facility] Comment on above: Performed By: #### H STROPN #### [facility] [address] [place] [address] Dr. Mirza Sadler [facility] SARS-CoV-2 (COVID-19) RNA RAMO+probe Ql (Unsp spec) Not detected Normal NOT DETECTED [facility] Comment on [...] for this test is supported by the [place] of Health and Human Service's declaration that [...] By: #### H STROPN #### [facility] [address] [place] [address] Dr. Mirza Sadler ER URINE PROFILEon 2 Bilirubin Ql (U) Negative Normal NEGATIVE [facility] Comment on above: Performed By: #### E RUR #### [facility] [address] [place] [address] Dr. Mirza Sadler Clarity (U) CLEAR Normal CLEAR [facility] Comment on above: Performed By: #### E RUR #### [facility] [address] [place] [address] Dr. Mirza Sadler Color (U) LT. YELLOW Normal YELLOW [facility] Comment on above: Performed By: #### E RUR #### [facility] [address] [place] [address] Dr. Mirza Sadler ERUAHGrace A micrscopic examina tion will be performed if indicated. Normal [facility] Comment on above: Performed By: #### E RUR #### [facility] [address] [place] [address] Dr. Mirza Sadler Glucose Ql (U) >1000 Abnormal NEGATIVE [facility] Comment on above: Performed By: #### E RUR #### [facility] [address] [place] [address] Dr. Mirza Sadler Hemoglobin Ql (U) Negative Normal NEGATIVE [facility] Comment on above: Performed By: #### E RUR #### [facility] [address] [place] [address] Dr. Mirza Sadler Ketones Ql (U) 15 mg/dl Abnormal NEGATIVE [facility] Comment on above: Performed By: #### E RUR #### [facility] [address] [place] [address] Dr. Mirza Sadler LEUKOCYTES Negative Normal NEGATIVE [facility] Comment on above: Performed By: #### E RUR #### [facility] [address] [place] [address] Dr. Mirza Sadler Nitrite Ql (U) Negative Normal NEGATIVE [facility] Comment on above: Performed By: #### E RUR #### [facility] [address] [place] [address] Dr. Mirza Sadler pH (U) 5.0 [pH] Normal 5-9 [facility] Comment on above: Performed By: #### E RUR #### [facility] [address] [place] [address] Dr. Mirza Sadler SPEC GRAVITY 1.020 Normal 1.005-<=1. 025 [facility] Comment on above: Performed By: #### E RUR #### [facility] [address] [place] [address] Dr. Mirza Sadler UA PROTEIN TRACE Normal NEGATIVE/ TRACE [facility] Comment on above: Performed By: #### E RUR #### [facility] [address] [place] [address] Dr. Mirza Sadler UR MICRO IND NOT INDICATED Normal [facility] Comment on above: Performed By: #### E RUR #### [facility] [address] [place] [address] Dr. Mirza Sadler Urobilinogen Qn (U) 0.2 {Luisito'U}/dL Normal 0.2 - 1. 0 [facility] Comment on above: Performed By: #### E RUR #### [facility] [address] [place] [address] Dr. Mirza Sadler POINT OF CARE GLUCOSEon 03-01 Glucose [Mass/Vol] 161 mg/dL Critically high 74-106 [facility] Comment on above: Performed By: #### P T, PTT #### [facility] [address] [place] [address] Dr. Mirza Sadler PROF 14(COMP METB)on 022 Albumin [Mass/Vol] 4.3 g/dL Normal 3.4-5.0 [facility] Comment on above: Performed By: #### P T, PTT #### [facility] [address] [place] [address] Dr. Mirza Sadler Albumin/Globulin [Mass ratio] 1.1 {ratio} Normal [facility] Comment on above: Performed By: #### P T, PTT #### [facility] [address] [place] [address] Dr. Mirza Sadler ALP [Catalytic activity/Vol] 156 U/L Critically high 46-116 [facility] Comment on above: Performed By: #### P T, PTT #### [facility] [address] [address] [address] Mirza Sadler ALT [Catalytic activity/Vol] 24 U/L Normal 16-63 [facility] Comment on above: Performed By: #### P T, PTT #### [facility] [address] [address] [address] Mirza Sadler Anion gap [Moles/Vol] 16.7 mmol/L Normal Th [facility] Comment on above: Performed By: #### P T, PTT #### [facility] [address] [address] [address] Mirza Sadler AST [Catalytic activity/Vol] 21 U/L Normal 15-37 [facility] Comment on above: Performed By: #### P T, PTT #### [facility] [address] [place] [address] Dr. Mirza Sadler Bilirubin [Mass/Vol] 1.1 mg/dL Critically high 0.2-1.0 [facility] Comment on above: Performed By: #### P T, PTT #### [facility] [address] [address] [address] Mirza Sadler Calcium [Mass/Vol] 8.8 mg/dL Normal 8.5-10.1 [facility] Comment on above: Performed By: #### P T, PTT #### [facility] [address] [place] [address] Dr. Mirza Sadler Chloride [Moles/Vol] 105 mmol/L Normal 98-107 [facility] Comment on above: Performed By: #### P T, PTT #### [facility] [address] [address] [address] Mirza Sadler CO2 [Moles/Vol] 25.0 mmol/L Normal 21.0-32.0 [facility] Comment on above: Performed By: #### P T, PTT #### [facility] [address] [place] [address] Dr. Mirza Sadler Creatinine [Mass/Vol] 1.57 mg/dL Critically high 0.70-1.30 [facility] Comment on above: Performed By: #### P T, PTT #### [facility] [address] [address] [address] Mirza Sadler EGFR-AF LAO 53 mL/min/1.73m2 Critically low >=60 [facility] Comment on above: Performed By: #### P T, PTT #### [facility] [address] [address] [address] Mirza Sadler EGFR-NON AF LAO 44 mL/min/1.73m2 Critically low >=60 [facility] Comment on above: Performed By: #### P T, PTT #### [facility] [address] [address] [address] Mirza Sadler Globulin (S) [Mass/Vol] 3.9 g/dL Normal [facility] Comment on above: Performed By: #### P T, PTT #### [facility] [address] [address] [address] Mirza Sadler Glucose [Mass/Vol] 188 mg/dL Critically high 74-106 [facility] Comment on above: Performed By: #### P T, PTT #### [facility] [address] [address] [address] Mirza Sadler Potassium [Moles/Vol] 3.7 mmol/L Normal 3.5-5.1 [facility] Comment on above: Performed By: #### P T, PTT #### [facility] [address] [address] [address] Mirza Sadler Protein [Mass/Vol] 8.2 g/dL Normal 6.4-8.2 [facility] Comment on above: Performed By: #### P T, PTT #### [facility] [address] [address] [address] Mirza Sadler Sodium [Moles/Vol] 143 mmol/L Normal 136-145 [facility] Comment on above: Performed By: #### P T, PTT #### [facility] [address] [address] [address] Mirza Sadler Urea nitrogen [Mass/Vol] 20.0 mg/dL Critically high 7.0-18.0 [facility] Comment on above: Performed By: #### P T, PTT #### [facility] [address] [place] [address] Dr. Mirza Sadler Urea nitrogen/Creatinine [Mass ratio] 12.7 mg/mg Normal [facility] Comment on above: Performed By: #### P T, PTT #### [facility] [address] [place] [address] Dr. Mirza Sadler RESPIRATORY PANEL PLUSon Adenovirus Not detected Normal NOT DETECTED [facility] Comment on above: Performed By: #### P T, PTT #### [facility] [address] [place] [address] Dr. Mirza Ball Parapertusis Not detected Normal NOT DETECTED [facility] Comment on above: Performed By: #### P T, PTT #### [facility] [address] [place] [address] Dr. Mirza Ball Pertussis Not detected Normal NOT DETECTED [facility] Comment on above: Performed By: #### P T, PTT #### [facility] [address] [place] [address] Dr. Mirza Sadler Chlamydia Pneumoniae Not detected Normal NOT DETECTED [facility] Comment on above: Performed By: #### P T, PTT #### [facility] [address] [place] [address] Dr. Mirza Sadler Coronavirus 229E Not detected Normal NOT DETECTED [facility] Comment on above: Performed By: #### P T, PTT #### [facility] [address] [place] [address] Dr. Mirza Sadler Coronavirus HKU1 Not detected Normal NOT DETECTED [facility] Comment on above: Performed By: #### P T, PTT #### [facility] [address] [place] [address] Dr. Mirza Sadler Coronavirus NL63 Not detected Normal NOT DETECTED [facility] Comment on above: Performed By: #### P T, PTT #### [facility] [address] [place] [address] Dr. Mirza Sadler Coronavirus OC43 Not detected Normal NOT DETECTED [facility] Comment on above: Performed By: #### P T, PTT #### [facility] [address] [place] [address] Dr. Mirza Sadler Influenza A H1 2009 Not detected Normal NOT DETECTED [facility] Comment on above: Performed By: #### P T, PTT #### [facility] [address] [place] [address] Dr. Mirza Sadler Influenza A H3 Not detected Normal NOT DETECTED [facility] Comment on above: Performed By: #### P T, PTT #### [facility] [address] [place] [address] Dr. Mirza Sadler Influenza B Not detected Normal NOT DETECTED [facility] Comment on above: Performed By: #### P T, PTT #### [facility] [address] [place] [address] Dr. Mirza Sadler Metapneumovirus Not detected Normal NOT DETECTED [facility] Comment on above: Performed By: #### P T, PTT #### [facility] [address] [place] [address] Dr. Mirza Sadler Mycoplas. Pneumoniae Not detected Normal NOT DETECTED [facility] Comment on above: Performed By: #### P T, PTT #### [facility] [address] [place] [address] Dr. Mirza Sadler Parainfluenza 1 Not detected Normal NOT DETECTED [facility] Comment on above: Performed By: #### P T, PTT #### [facility] [address] [place] [address] Dr. Mirza Sadler Parainfluenza 2 Not detected Normal NOT DETECTED [facility] Comment on above: Performed By: #### P T, PTT #### [facility] [address] [place] [address] Dr. Mirza Sadler Parainfluenza 3 Not detected Normal NOT DETECTED [facility] Comment on above: Performed By: #### P T, PTT #### [facility] [address] [place] [address] Dr. Mirza Sadler Parainfluenza 4 Not detected Normal NOT DETECTED [facility] Comment on above: Performed By: #### P T, PTT #### [facility] [address] [place] [address] Dr. Mirza Sadler Rhino/Enterovirus Not detected Normal NOT DETECTED [facility] Comment on above: Performed By: #### P T, PTT #### [facility] [address] [place] [address] Dr. Mirza Sadler RP2 Header 1 RESPIRATORY PANEL: VIRUSES Normal [facility] Comment on above: Performed By: #### P T, PTT #### [facility] [address] [place] [address] Dr. Mirza Sadler RP2 Header 2 RESPIRATORY PANEL: BACTERIA Normal [facility] Comment on above: Performed By: #### P T, PTT #### [facility] [address] [place] [address] Dr. Mirza Sadler RSV Not detected Normal NOT DETECTED [facility] Comment on above: Performed By: #### P T, PTT #### [facility] [address] [place] [address] Dr. Mirza Sadler SARS-CoV-2 (COVID-19) RNA RAMO+probe Ql (Unsp spec) Not detected Normal NOT DETECTED [facility] Comment on above: Performed By: #### P T, PTT #### [facility] [address] [place] [address] Dr. Mirza Sadler TROPONIN, HIGH SENSITIVITYon 03-11-2022 HSTROP 43433.8 pg/mL Critically high 4.0-76.1 [facility] Comment on above: Result Comment: CUT- OFF POINTS HAVE BEEN ESTABLISHED BASED ON THE FOURTH UNIVERSAL DEFINITIONS OF MYOCARDIAL INFARCTION. THE UPPER REFERENCE LIMIT (URL) OF TROPONIN, DEFINED THE 99TH PERCENTILE OF cTnI DISTRIBUTION IN A REFERENCE POPULATION, HAS BEEN CONFIRMED THE DECISION THRESHOLD FOR [place] DIAGNOSIS. Performed By: #### C MP, CMADM #### [facility] [address] [place] [address] Dr. Mirza Sadler HSTROP 41.0 pg/mL Normal 4.0-76.1 [facility] Comment on above: Result Comment: CUT- OFF POINTS HAVE BEEN ESTABLISHED BASED ON THE FOURTH UNIVERSAL DEFINITIONS OF MYOCARDIAL INFARCTION. THE UPPER REFERENCE LIMIT (URL) OF TROPONIN, DEFINED THE 99TH PERCENTILE OF cTnI DISTRIBUTION IN A REFERENCE POPULATION, HAS BEEN CONFIRMED THE DECISION THRESHOLD FOR [place] DIAGNOSIS. Performed By: #### P T, PTT #### [facility] [address] [place] [address] Dr. Mirza Sadler XR CHEST 1 Von [...] by: Kayden ACEVES Date: 2022-03-11 05:42 Normal [facility] NM MUGAon 03-09-2022 [place] MUGA EXAMINATION: [...] by: SHANNON LANDIS Date: 2022-03-09 12:26 Normal [facility] CT CHEST WO CONon 03-02-2022 CT [...] Date: 2022-03-02 08:52 Normal [facility] Creatinine and Glomerular fi ltration rate.predicted panel (S/P/Bld)Ordered By: Gagan Shahid on 01-17-2022 Creatinine [Mass/Vol] 1.53 mg/dL 0.64-1.27 [facility] Estimated glomerular filtrat ion rate (GFR) non- AmericanOrdered By: Gagan Shahid on 01-17-2022 GFR/1.73 sq M.predicted among non-blacks MDRD (S/P/Bld) [Vol rate/Area] 45 mL/Min [facility] Glucose Glucometer (BldC) [M ass/Vol]Ordered By: Gagan Shahid on 01-17-2022 Glucose [Mass/Vol] 178 mg/dL [facility] Comment on above: Random Glucose Refer ence Range is dependent on time and content of last meal. Glucose of more than 200 mg/dL in a nonstressed, ambulatory subject supports the diagnosis of Diabetes Mellitus. No Panel InformationOrdered By: Gagan Shahid on 01-17-2022 Estimated GFR () 55 mL/Min [facility] Comment on above: GFR estimated refere nce range: According to KDOQI guidelines, <60 ml/min/1.73m2 is sufficient to diagnose a patient with chronic kidney disease. Pharmacy Creatinine Clearance (Chem 42.00 [facility] Serum or plasma anion gap de terminationOrdered By: Gagan Shahid on 01-17-2022 Anion gap [Moles/Vol] 12.0 mmol/L 6.0-15.0 [facility] Serum or plasma calcium radha urement (mass/volume)Ordered By: Gagan Shahid on 01-17-2022 Calcium [Mass/Vol] 9.0 mg/dL 8.2-10.2 [facility] Serum or plasma chloride shanae surement (moles/volume)Ordered By: Gagan Shahid on 01-17-2022 Chloride [Moles/Vol] 107 mmol/L 95-114 [facility] Serum or plasma glucose radha urement (mass/volume)Ordered By: Gagan Shahid on 01-17-2022 Glucose [Mass/Vol] 142 mg/dL 70-100 [facility] Comment on above: ADA recommended refe rence rangeRandom Glucose Reference Range is dependent on time and content of last meal. Glucose of more than 200 mg/dL in a nonstressed, ambulatory subject supports the diagnosis of Diabetes Mellitus. Serum or plasma potassium me asurement (moles/volume)Ordered By: Gagan Shahid on 01-17-2022 Potassium [Moles/Vol] 3.5 mmol/L 3.5-5.1 [facility] Serum or plasma sodium measu rement (moles/volume)Ordered By: Gagan Shahid on 01-17-2022 Sodium [Moles/Vol] 137 mmol/L 136-146 [facility] Serum or plasma total carbon dioxide measurement (moles/volume)Ordered By: Gagan Shahid on 01-17-2022 CO2 [Moles/Vol] 21.5 mmol/L 22.0-30.0 [facility] Serum or plasma urea nitroge n measurement (mass/volume)Ordered By: Gagan Shahid on 01-17-2022 Urea nitrogen [Mass/Vol] 24 mg/dL 9 [facility] Activated partial thrombopla stin time (aPTT) in platelet poor plasma by coagulation aOrdered By: Gagan Shahid on 01-16-2022 aPTT Coag (PPP) [Time] 42.1 s 25.1-36.5 [facility] Basophils Auto (Bld) [#/Vol] Ordered By: Gagan Shahid on 01-16-2022 Basophils (Bld) [#/Vol] 0.0 10*3/uL 0.0-0.2 [facility] Basophils/100 WBC Auto (Bld) Ordered By: Gagan Shahid on 01-16-2022 Basophils/100 WBC (Bld) 0.5 % . [facility] Creatine kinase [Enzymatic a ctivity/volume] in Serum or PlasmaOrdered By: Gagan Shahid on 01-16-2022 CK [Catalytic activity/Vol] 92 U/L [facility] Eosinophils Auto (Bld) [#/Vo l]Ordered By: Gagan Shahid on 01-16-2022 Eosinophils (Bld) [#/Vol] 0.2 10*3/uL 0.0-0.45 [facility] Eosinophils/100 WBC Auto (Bl d)Ordered By: Gagan Shahid on 01-16-2022 Eosinophils/100 WBC (Bld) 2.4 % . [facility] Erythrocyte distribution wid th Auto (RBC) [Ratio]Ordered By: Gagan Shahid on 01-16-2022 Erythrocyte distribution width (RBC) [Ratio] 14.6 % 12.0-14.8 [facility] Hematocrit Auto (Bld) [Volum e fraction]Ordered By: Gagan Shahid on 01-16-2022 Hematocrit (Bld) [Volume fraction] 43.4 % 38.8-50.0 [facility] Hemoglobin [Mass/volume] in BloodOrdered By: Gagan Shahid on 01-16-2022 Hemoglobin (Bld) [Mass/Vol] 14.4 g/dL 13.0-17.0 [facility] Laboratory - Chemistry and C hemistry - challengeOrdered By: Gagan Shahid on 01-16-2022 Magnesium [Mass/Vol] 1.9 mg/dL 1.6-2.6 [facility] Laboratory - CoagulationOrde red By: Gagan Shahid on 01-16-2022 PT Coag (PPP) [Time] 15.7 s 9.0-12.9 [facility] Laboratory - Hematology and Cell countsOrdered By: Gagan Shahid on 01-16-2022 Nucleated RBC/100 WBC (Bld) [Ratio] 0.1 % 0-0.5 [facility] Leukocytes [#/volume] in Blo od by Automated countOrdered By: Gagan Shahid on 01-16-2022 WBC (Bld) [#/Vol] 8.2 10*3/uL 4.5-11.0 [facility] Lymphocytes Auto (Bld) [#/Vo l]Ordered By: Gagan Shahid on 01-16-2022 Lymphocytes (Bld) [#/Vol] 1.6 10*3/uL 1.00-4.8 [facility] Lymphocytes/100 WBC Auto (Bl d)Ordered By: Gagan Shahid on 01-16-2022 Lymphocytes/100 WBC (Bld) 19.5 % . [facility] MCH Auto (RBC) [Entitic mass ]Ordered By: Gagan Shahid on 01-16-2022 MCH (RBC) [Entitic mass] 29.4 pg 27.5-35.2 [facility] MCHC Auto (RBC) [Mass/Vol]Or dered By: Gagan Shahid on 01-16-2022 MCHC (RBC) [Mass/Vol] 33.2 g/dL 32.5-35.6 [facility] MCV Auto (RBC) [Entitic vol] Ordered By: Gagan Shahid on 01-16-2022 MCV (RBC) [Entitic vol] 88.5 fL 83.5-101 [facility] Monocytes Auto (Bld) [#/Vol] Ordered By: Gagan Shahid on 01-16-2022 Monocytes (Bld) [#/Vol] 0.8 10*3/uL 0.0-0.8 [facility] Monocytes/100 WBC Auto (Bld) Ordered By: Gagan Shahid on 01-16-2022 Monocytes/100 WBC (Bld) 9.1 % . [facility] Neutrophils Auto (Bld) [#/Vo l]Ordered By: Gagan Shahid on 01-16-2022 Neutrophils (Bld) [#/Vol] 5.6 10*3/uL 1.8-7.7 [facility] Neutrophils/100 WBC Auto (Bl d)Ordered By: Gagan Shahid on 01-16-2022 Neutrophils/100 WBC (Bld) 68.5 % . [facility] No Panel InformationOrdered By: Gagan Shahid on 01-16-2022 Bedside Glucose Comment Glu2: cleaned meter [facility] Platelet mean volume Auto (B ld) [Entitic vol]Ordered By: Gagan Shahid on 01-16-2022 Platelet mean volume (Bld) [Entitic vol] 8.4 fL 6.6-10.1 [facility] Platelet poor plasma interna tional normalized ratio (INR) by coagulation assay (relatOrdered By: Gagan Shahid on 01-16-2022 INR Coag (PPP) [Relative time] 1.4 {INR} [facility] Comment on above: INR Therapeutic [...] 01-16-2022 Platelets (Bld) [#/Vol] 178 10*3/uL 150-450 [facility] RBC Auto (Bld) [#/Vol]Ordere d By: Gagan Shahid on 01-16-2022 RBC (Bld) [#/Vol] 4.90 10*6/uL 3.90-5.60 [facility] Serum or plasma creatine kin ase MB (CKMB)/total creatine kinase (CK) ratio by calculaOrdered By: Gagan Shahid on 01-16-2022 CK.MB Calc [Catalytic fraction] 3.2 % 0.00-2.50 [facility] Serum or plasma creatine kin ase MB measurement (mass/volume)Ordered By: Gagan Shahid on 01-16-2022 CK.MB [Mass/Vol] 3.0 ng/mL 0.6-6.3 [facility] Troponin I.cardiac [Mass/vol ume] in Serum or Plasma by High sensitivity methodOrdered By: Gagan Shahid on 01-16-2022 Troponin I.cardiac High sensitivity method [Mass/Vol] 525 pg/mL 0-20 [facility] Comment on above: Critical valueresult calledat 1844 on 01/16/22 BNPon 01-15-2022 Natriuretic peptide B (Bld) [Mass/Vol] 1012.0 pg/mL Critically high <=900.0 [facility] Comment on above: Performed By: #### B DIGITAL MARKETING SPECIALIST #### [facility] [address] [place] [address] Dr. Mirza Sadler CARDIAC PARUL ADMITon 022 CK [Catalytic activity/Vol] 93 U/L Normal 39-308 [facility] Comment on above: Performed By: #### C TANIA, CMADM #### [facility] [address] [address] [address] Mirza Sadler CK.MB [Mass/Vol] 1.67 ng/mL Normal <=3.60 [facility] Comment on above: Performed By: #### C TANIA, CMADM #### [facility] [address] [address] [address] Mirza Sadler HSTROP 17.1 pg/mL Normal 4.0-76.1 [facility] Comment on above: Result Comment: CUT- OFF POINTS HAVE BEEN ESTABLISHED BASED ON THE FOURTH UNIVERSAL DEFINITIONS OF MYOCARDIAL INFARCTION. THE UPPER REFERENCE LIMIT (URL) OF TROPONIN, DEFINED THE 99TH PERCENTILE OF cTnI DISTRIBUTION IN A REFERENCE POPULATION, HAS BEEN CONFIRMED THE DECISION THRESHOLD FOR [place] DIAGNOSIS. Performed By: #### C TANIA, CMADM #### [facility] [address] [address] [address] Mirza Sadler RACHEL 63 ng/mL Normal 16-96 [facility] Comment on above: Performed By: #### C TANIA, CMADM #### [facility] [address] [place] [address] Dr. Mirza Sadler CBC AUTO DIFFon 01-15-2022 BASO # 0.1 103/ul Normal 0.0-0.1 [facility] Comment on above: Performed By: #### E RUR #### [facility] [address] [place] [address] Dr. Mirza Sadler Basophils/100 WBC (Bld) 0.9 % Normal 0.2-2.0 [facility] Comment on above: Performed By: #### E RUR #### [facility] [address] [place] [address] Dr. Mirza Sadler EO # 0.3 103/ul Normal 0.0-0.7 [facility] Comment on above: Performed By: #### E RUR #### [facility] [address] [place] [address] Dr. Mirza Sadler Eosinophils/100 WBC (Bld) 3.1 % Normal 0.9-7.0 [facility] Comment on above: Performed By: #### E RUR #### [facility] [address] [place] [address] Dr. Mirza Sadler Erythrocyte distribution width (RBC) [Ratio] 14.2 % Normal 11.0-15.0 [facility] Comment on above: Performed By: #### E RUR #### [facility] [address] [place] [address] Dr. Mirza Sadler Hematocrit (Bld) [Volume fraction] 44.4 % Normal 42.0-54.0 [facility] Comment on above: Performed By: #### E RUR #### [facility] [address] [place] [address] Dr. Mirza Sadler Hemoglobin (Bld) [Mass/Vol] 14.4 g/dL Normal 14.0-18.0 [facility] Comment on above: Performed By: #### E RUR #### [facility] [address] [place] [address] Dr. Mirza Sadler IG # 0.03 10e3/ul Normal 0.00-0.03 [facility] Comment on above: Performed By: #### E RUR #### [facility] [address] [place] [address] Dr. Mirza Sadler IG % 0.3 % Normal 0.0-0.5 [facility] Comment on above: Performed By: #### E RUR #### [facility] [address] [place] [address] Dr. Mirza Sadler LYMPH # 1.6 103/ul Normal 1.2-3.8 [facility] Comment on above: Performed By: #### E RUR #### [facility] [address] [place] [address] Dr. Mirza Sadler Lymphocytes/100 WBC (Bld) 16.8 % Critically low 20.5-60.0 [facility] Comment on above: Performed By: #### E RUR #### [facility] [address] [place] [address] Dr. Mirza Sadler MANUAL DIFF REQ NO Normal [facility] Comment on above: Performed By: #### E RUR #### [facility] [address] [place] [address] Dr. Mirza Sadler MCH (RBC) [Entitic mass] 29.4 pg Normal 25.9-34.0 [facility] Comment on above: Performed By: #### E RUR #### [facility] [address] [place] [address] Dr. Mirza Sadler MCHC (RBC) [Mass/Vol] 32.4 g/dL Normal 29.9-35.2 [facility] Comment on above: Performed By: #### E RUR #### [facility] [address] [place] [address] Dr. Mirza Sadler MCV (RBC) [Entitic vol] 90.6 fL Normal 80.0-94.0 [facility] Comment on above: Performed By: #### E RUR #### [facility] [address] [place] [address] Dr. Mirza Sadler MONO # 0.5 103/ul Normal 0.3-0.8 [facility] Comment on above: Performed By: #### E RUR #### [facility] [address] [address] [address] Mirza Sadler Monocytes/100 WBC (Bld) 5.9 % Normal 1.7-12.0 [facility] Comment on above: Performed By: #### E RUR #### [facility] [address] [address] [address] Mirza Sadler NEUT # 6.7 103/ul Critically high 1.4-6.5 [facility] Comment on above: Performed By: #### E RUR #### [facility] [address] [place] [address] Dr. Mirza Sadler Neutrophils/100 WBC (Bld) 73.0 % Normal 43.0-75.0 [facility] Comment on above: Performed By: #### E RUR #### [facility] [address] [place] [address] Dr. Mirza Sadler Platelet mean volume (Bld) [Entitic vol] 10.0 fL Normal 9.5-13.5 [facility] Comment on above: Performed By: #### E RUR #### [facility] [address] [place] [address] Dr. Mirza Sadler PLT 190 103/ul Normal 150-450 [facility] Comment on above: Performed By: #### E RUR #### [facility] [address] [place] [address] Dr. Mirza Sadler RBC 4.90 106/ul Normal 4.70-6.10 [facility] Comment on above: Performed By: #### E RUR #### [facility] [address] [place] [address] Dr. Mirza Sadler WBC 9.2 103/ul Normal 4.0-11.0 [facility] Comment on above: Performed By: #### E RUR #### [facility] [address] [place] [address] CHEST WO CONon [...] by: HIGINIO FLANAGAN Date: 2022-01-15 08:19 Normal [facility] CULTURE BLOODon 01-15-2022 Microscopic examination of blood, culture Culture Observations: NO GROWTH AT 5 DAYS. Normal [facility] Comment on above: Performed By: #### H STROPN #### [facility] [address] [place] [address] Dr. Mirza Sadler Microscopic examination of blood, culture Culture Observations: NO GROWTH AT 5 DAYS. Normal [facility] Comment on above: Performed By: #### B LDCX1 #### [facility] [address] [place] [address] Dr. Mirza Sadler [facility] SARS-CoV-2 (COVID-19) RNA RAMO+probe Ql (Unsp spec) Not detected Normal NOT DETECTED [facility] Comment on [...] for this test is supported by the [place] of Health and Human Service's declaration that [...] longer be used). Performed By: #### B DIGITAL MARKETING SPECIALIST #### [facility] [address] [place] [address] Dr. Mirza Sadler ER URINE PROFILEon 2 Bilirubin Ql (U) Negative Normal NEGATIVE [facility] Comment on above: Performed By: #### C DOM MARINDM #### [facility] [address] [place] [address] Dr. Mirza Sadler Clarity (U) CLEAR Normal CLEAR [facility] Comment on above: Performed By: #### C TANIA CMADM #### [facility] [address] [place] [address] Dr. Mirza Sadler Color (U) LT. YELLOW Normal YELLOW [facility] Comment on above: Performed By: #### C TANIA CMADM #### [facility] [address] [place] [address] Dr. Mirza GARCIAD A micrscopic examina tion will be performed if indicated. Normal [facility] Comment on above: Performed By: #### C TANIA, CMADM #### [facility] [address] [place] [address] Dr. Mirza Sadler Glucose Ql (U) >1000 Abnormal NEGATIVE [facility] Comment on above: Performed By: #### C MP, CMADM #### [facility] [address] [address] [address] Mirza Sadler Hemoglobin Ql (U) Negative Normal NEGATIVE [facility] Comment on above: Performed By: #### C MP, CMADM #### [facility] [address] [address] [address] Mirza Sadler Ketones Ql (U) TRACE Abnormal NEGATIVE [facility] Comment on above: Performed By: #### C MP, CMADM #### [facility] [address] [place] [address] Dr. Mirza Sadler LEUKOCYTES Negative Normal NEGATIVE [facility] Comment on above: Performed By: #### C MP, CMADM #### [facility] [address] [place] [address] Dr. Mirza Sadler Nitrite Ql (U) Negative Normal NEGATIVE [facility] Comment on above: Performed By: #### C MP, CMADM #### [facility] [address] [place] [address] Dr. Mirza Sadler pH (U) 5.5 [pH] Normal 5-9 [facility] Comment on above: Performed By: #### C MP, CMADM #### [facility] [address] [place] [address] Dr. Mirza Sadler SPEC GRAVITY 1.020 Normal 1.005-<=1. 025 [facility] Comment on above: Performed By: #### C MP, CMADM #### [facility] [address] [place] [address] Dr. Mirza Sadler UA PROTEIN TRACE Normal NEGATIVE/ TRACE [facility] Comment on above: Performed By: #### C MP, CMADM #### [facility] [address] [place] [address] Dr. Mirza Sadler UR MICRO IND NOT INDICATED Normal [facility] Comment on above: Performed By: #### C MP, CMADM #### [facility] [address] [place] [address] Dr. Mirza Sadler Urobilinogen Qn (U) 0.2 {Luisito'U}/dL Normal 0.2 - 1. 0 [facility] Comment on above: Performed By: #### C MP, CMADM #### [facility] [address] [place] [address] Dr. Mirza Sadler LACTATE/LACTIC ACIDon 2021 Lactate [Moles/Vol] 0.8 mmol/L Normal 0.4-1.9 [facility] Comment on above: Performed By: #### P T, PTT #### [facility] [address] [place] [address] Dr. Mirza Sadler PROF 14(COMP METB)on 022 Albumin [Mass/Vol] 4.4 g/dL Normal 3.4-5.0 [facility] Comment on above: Performed By: #### C TANIA, CMADM #### [facility] [address] [place] [address] Dr. Mirza Sadler Albumin/Globulin [Mass ratio] 1.3 {ratio} Normal [facility] Comment on above: Performed By: #### C TANIA, CMADM #### [facility] [address] [place] [address] Dr. Mirza Sadler ALP [Catalytic activity/Vol] 155 U/L Critically high 46-116 [facility] Comment on above: Performed By: #### C MP, CMADM #### [facility] [address] [place] [address] Dr. Mirza Sadler ALT [Catalytic activity/Vol] 27 U/L Normal 16-63 [facility] Comment on above: Performed By: #### C MP, CMADM #### [facility] [address] [address] [address] Mirza Sadler Anion gap [Moles/Vol] 14.9 mmol/L Normal [facility] Comment on above: Performed By: #### C MP, CMADM #### [facility] [address] [place] [address] Dr. Mirza Sadler AST [Catalytic activity/Vol] 22 U/L Normal 15-37 [facility] Comment on above: Performed By: #### C MP, CMADM #### [facility] [address] [address] [address] Mirza Sadler Bilirubin [Mass/Vol] 0.8 mg/dL Normal 0.2-1.0 [facility] Comment on above: Performed By: #### C MP, CMADM #### [facility] [address] [place] [address] Dr. Mirza Sadler Calcium [Mass/Vol] 8.8 mg/dL Normal 8.5-10.1 [facility] Comment on above: Performed By: #### C MP, CMADM #### [facility] [address] [place] [address] Dr. Mirza Sadler Chloride [Moles/Vol] 106 mmol/L Normal 98-107 [facility] Comment on above: Performed By: #### C MP, CMADM #### [facility] [address] [place] [address] Dr. Mirza Sadler CO2 [Moles/Vol] 23.9 mmol/L Normal 21.0-32.0 [facility] Comment on above: Performed By: #### C MP, CMADM #### [facility] [address] [place] [address] Dr. Mirza Sadler Creatinine [Mass/Vol] 1.51 mg/dL Critically high 0.70-1.30 [facility] Comment on above: Performed By: #### C MP, CMADM #### [facility] [address] [place] [address] Dr. Mirza Sadler EGFR-AF LAO 56 mL/min/1.73m2 Critically low >=60 [facility] Comment on above: Performed By: #### C MP, CMADM #### [facility] [address] [place] [address] Dr. Mirza Sadler EGFR-NON AF LAO 46 mL/min/1.73m2 Critically low >=60 [facility] Comment on above: Performed By: #### C MP, CMADM #### [facility] [address] [place] [address] Dr. Mirza Sadler Globulin (S) [Mass/Vol] 3.4 g/dL Normal [facility] Comment on above: Performed By: #### C TEGAN MARIN #### [facility] [address] [place] [address] Dr. Mirza Sadler Glucose [Mass/Vol] 189 mg/dL Critically high 74-106 [facility] Comment on above: Performed By: #### C TEGAN MARIN #### [facility] [address] [place] [address] Dr. Mirza Sadler Potassium [Moles/Vol] 3.8 mmol/L Normal 3.5-5.1 [facility] Comment on above: Performed By: #### C TEGAN MARIN #### [facility] [address] [place] [address] Dr. Mirza Sadler Protein [Mass/Vol] 7.8 g/dL Normal 6.4-8.2 [facility] Comment on above: Performed By: #### C TEGAN MARIN #### [facility] [address] [place] [address] Dr. Mirza Sadler Sodium [Moles/Vol] 141 mmol/L Normal 136-145 [facility] Comment on above: Performed By: #### C TEGAN MARIN #### [facility] [address] [place] [address] Dr. Mirza Sadler Urea nitrogen [Mass/Vol] 22.0 mg/dL Critically high 7.0-18.0 [facility] Comment on above: Performed By: #### C TEGAN MARIN #### [facility] [address] [place] [address] Dr. Mirza Sadler Urea nitrogen/Creatinine [Mass ratio] 14.6 mg/mg Normal [facility] Comment on above: Performed By: #### C TEGAN MARIN #### [facility] [address] [place] [address] Dr. Mirza Sadler PROTIMEon 01-15-2022 INR Coag (PPP) [Relative time] 1.10 {INR} Normal [facility] Comment on above: Performed By: #### E RUR #### [facility] [address] [address] [address] Mirza Sadler INR GUIDELINES SEE BELOW Normal [facility] Comment on above: Result Comment: RIVKA RED INR: 2.0 - 3.0 CONDITIONS NOT LISTED BELOW 2.5 - 3.5 FOR PROSTHETIC HEART VALVE REPLACEMENT 2.5 - 3.5 RECURRENT THROMBOSIS Performed By: #### E RUR #### [facility] [address] [address] [address] Mirza Sadler PT Coag (PPP) [Time] 11.8 s Critically high 9.0-11.6 [facility] Comment on above: Performed By: #### E RUR #### [facility] [address] [place] [address] Dr. Mirza Salder PTTon 01-15-2022 aPTT Coag (Bld) [Time] 29.0 s Normal 22.3-36.2 [facility] Comment on above: Performed By: #### E RUR #### [facility] [address] [place] [address] Dr. Mirza Sadler TROPONIN, HIGH SENSITIVITYon 01-15-2022 HSTROP 1786.2 pg/mL Critically high 4.0-76.1 [facility] Comment on above: Result Comment: CUT- OFF POINTS HAVE BEEN ESTABLISHED BASED ON THE FOURTH UNIVERSAL DEFINITIONS OF MYOCARDIAL INFARCTION. THE UPPER REFERENCE LIMIT (URL) OF TROPONIN, DEFINED THE 99TH PERCENTILE OF cTnI DISTRIBUTION IN A REFERENCE POPULATION, HAS BEEN CONFIRMED THE DECISION THRESHOLD FOR [place] DIAGNOSIS. Performed By: #### H STROPN #### [facility] [address] [place] [address] Dr. Mirza Sadler HSTROP 669.3 pg/mL Critically high 4.0-76.1 [facility] Comment on above: Result Comment: CUT- OFF POINTS HAVE BEEN ESTABLISHED BASED ON THE FOURTH UNIVERSAL DEFINITIONS OF MYOCARDIAL INFARCTION. THE UPPER REFERENCE LIMIT (URL) OF TROPONIN, DEFINED THE 99TH PERCENTILE OF cTnI DISTRIBUTION IN A REFERENCE POPULATION, HAS BEEN CONFIRMED THE DECISION THRESHOLD FOR [place] DIAGNOSIS. Performed By: #### H STROPN #### [facility] [address] [place] [address] Dr. Mirza Sadler XR CHEST 1 Von [...] Date: 2022-01-15 06:42 Normal [facility] A1C HEMOGLOBINon 12-18-2021 HbA1c (Bld) [Mass fraction] 6.2 % [employer] Other Glucose - FINGER STICKon Glucose [Mass/Vol] 120 mg/dL [employer] Other HbA1c (Bld) [Mass fraction]o n 12-18-2021 A1C HEMOGLOBIN [employer] Other XR CHEST 2 Von 12-08-2021 XR [...] Date: 2021-12-08 16:07 Normal [facility] PTH INTACTon 12-01-2021 PTH, Intact 15 pg/mL Normal 15-65 [facility] Comment on above: Performed By: #### C MP, CMADM #### [facility] [address] [address] [address] Mirza Sadler VIT D 25-OH [employer]on 2021 Vitamin D, 25-Hydroxy 41.2 ng/mL Normal 30.0-100.0 [facility] Comment on above: Result Comment: Cielo min D deficiency has been defined by the [place] [employer] and an Endocrine Society practice guideline as a level of serum 25-OH vitamin D less than 20 ng/mL (1,2). The Endocrine Society went on to further define vitamin D insufficiency as a level between 21 and 29 ng/mL (2). 1. IOM ([place] [employer]). 2010. Dietary reference intakes for calcium and D. [place]: The National Academies Press. 2. Noemy MF, Sonam [place], Jake HERMOSILLO, et al. Evaluation, treatment, and prevention of vitamin D deficiency: an Endocrine Society clinical practice guideline. JCEM. 2010; 96(7):1911-30. Performed By: #### P T, PTT #### [facility] [address] [place] [address] Dr. Mirza Sadler HEMOGRAM AND PLATELon 2021 Hematocrit (Bld) [Volume fraction] 39.9 % Critically low 42.0-54.0 [facility] Comment on above: Performed By: #### P T, PTT #### [facility] [address] [place] [address] Dr. Mirza Sadler Hemoglobin (Bld) [Mass/Vol] 13.1 g/dL Critically low 14.0-18.0 [facility] Comment on above: Performed By: #### P T, PTT #### [facility] [address] [place] [address] Dr. Mirza Sadler MCH (RBC) [Entitic mass] 29.5 pg Normal 25.9-34.0 [facility] Comment on above: Performed By: #### P T, PTT #### [facility] [address] [place] [address] Dr. Mirza Sadler MCHC (RBC) [Mass/Vol] 32.8 g/dL Normal 29.9-35.2 [facility] Comment on above: Performed By: #### P T, PTT #### [facility] [address] [place] [address] Dr. Mirza Sadler MCV (RBC) [Entitic vol] 89.9 fL Normal 80.0-94.0 [facility] Comment on above: Performed By: #### P T, PTT #### [facility] [address] [place] [address] Dr. Mirza Sadler PLT 182 103/ul Normal 150-450 [facility] Comment on above: Performed By: #### P T, PTT #### [facility] [address] [place] [address] Dr. Mirza Sadler RBC 4.44 106/ul Critically low 4.70-6.10 [facility] Comment on above: Performed By: #### P T, PTT #### [facility] [address] [place] [address] Dr. Mirza Sadler WBC 6.9 103/ul Normal 4.0-11.0 [facility] Comment on above: Performed By: #### P T, PTT #### [facility] [address] [place] [address] Dr. Mirza Sadler MAGNESIUMon 11-30-2021 Magnesium [Mass/Vol] 1.8 mg/dL Normal 1.8-2.4 [facility] Comment on above: Performed By: #### P T, PTT #### [facility] [address] [place] [address] Dr. Mirza Sadler RENAL FUNCTION PANELon 11-30 Albumin [Mass/Vol] 3.9 g/dL Normal 3.4-5.0 [facility] Comment on above: Performed By: #### P T, PTT #### [facility] [address] [place] [address] Dr. Mirza Sadler Calcium [Mass/Vol] 9.0 mg/dL Normal 8.5-10.1 [facility] Comment on above: Performed By: #### P T, PTT #### [facility] [address] [place] [address] Dr. Mirza Sadler Chloride [Moles/Vol] 107 mmol/L Normal 98-107 [facility] Comment on above: Performed By: #### P T, PTT #### [facility] [address] [address] [address] Mirza Sadler CO2 [Moles/Vol] 26.2 mmol/L Normal 21.0-32.0 [facility] Comment on above: Performed By: #### P T, PTT #### [facility] [address] [place] [address] Dr. Mirza Sadler Creatinine [Mass/Vol] 1.55 mg/dL Critically high 0.70-1.30 [facility] Comment on above: Performed By: #### P T, PTT #### [facility] [address] [place] [address] Dr. Mirza Sadler EGFR-AF LAO 54 mL/min/1.73m2 Critically low >=60 [facility] Comment on above: Performed By: #### P T, PTT #### [facility] [address] [place] [address] Dr. Mirza Sadler EGFR-NON AF LAO 45 mL/min/1.73m2 Critically low >=60 [facility] Comment on above: Performed By: #### P T, PTT #### [facility] [address] [place] [address] Dr. Mirza Sadler Glucose [Mass/Vol] 166 mg/dL Critically high 74-106 [facility] Comment on above: Performed By: #### P T, PTT #### [facility] [address] [place] [address] Dr. Mirza Sadler Phosphate [Mass/Vol] 3.7 mg/dL Normal 2.6-4.7 [facility] Comment on above: Performed By: #### P T, PTT #### [facility] [address] [place] [address] Dr. Mirza Sadler Potassium [Moles/Vol] 4.2 mmol/L Normal 3.5-5.1 [facility] Comment on above: Performed By: #### P T, PTT #### [facility] [address] [place] [address] Dr. Mirza Sadler Sodium [Moles/Vol] 142 mmol/L Normal 136-145 [facility] Comment on above: Performed By: #### P T, PTT #### [facility] [address] [place] [address] Dr. Mirza Sadler Urea nitrogen [Mass/Vol] 16.0 mg/dL Normal 7.0-18.0 [facility] Comment on above: Performed By: #### P T, PTT #### [facility] [address] [place] [address] Dr. Mirza Sadler UA RANDOM W/MICROSCOPICon BACTERIA NONE SEEN Normal NONE SEEN [facility] Comment on above: Performed By: #### B LDCX2 #### [facility] [address] [place] [address] Dr. Mirza Sadler Bilirubin Ql (U) Negative Normal NEGATIVE [facility] Comment on above: Performed By: #### B LDCX2 #### [facility] [address] [place] [address] Dr. Mirza Sadler CAST NONE SEEN Normal NONE SEEN [facility] Comment on above: Performed By: #### B LDCX2 #### [facility] [address] [place] [address] Dr. Mirza Sadler Clarity (U) CLEAR Normal CLEAR [facility] Comment on above: Performed By: #### B LDCX2 #### [facility] [address] [place] [address] Dr. Mirza Sadler Color (U) LT. YELLOW Normal YELLOW [facility] Comment on above: Performed By: #### B LDCX2 #### [facility] [address] [place] [address] Dr. Mirza Sadler Crystals LM Nom (Urine sed) NONE SEEN Normal NONE SEEN [facility] Comment on above: Performed By: #### B LDCX2 #### [facility] [address] [place] [address] Dr. Mirza Sadler Epithelial cells LM Ql (Urine sed) RARE Normal NONE SEEN /RARE [facility] Comment on above: Performed By: #### B LDCX2 #### [facility] [address] [address] [address] Mirza Sadler Glucose Ql (U) >1000 Abnormal NEGATIVE [facility] Comment on above: Performed By: #### B LDCX2 #### [facility] [address] [place] [address] Dr. Mirza Sadler Hemoglobin Ql (U) Negative Normal NEGATIVE [facility] Comment on above: Performed By: #### B LDCX2 #### [facility] [address] [place] [address] Dr. Mirza Sadler Ketones Ql (U) Negative Normal NEGATIVE [facility] Comment on above: Performed By: #### B LDCX2 #### [facility] [address] [place] [address] Dr. Mirza Sadler LEUKOCYTES Negative Normal NEGATIVE [facility] Comment on above: Performed By: #### B LDCX2 #### [facility] [address] [place] [address] Dr. Mirza Sadler MUCOUS NONE SEEN Normal NONE SEEN [facility] Comment on above: Performed By: #### B LDCX2 #### [facility] [address] [place] [address] Dr. Mirza Sadler Nitrite Ql (U) Negative Normal NEGATIVE [facility] Comment on above: Performed By: #### B LDCX2 #### [facility] [address] [place] [address] Dr. Mirza Sadler pH (U) 5.5 [pH] Normal 5-9 [facility] Comment on above: Performed By: #### B LDCX2 #### [facility] [address] [place] [address] Dr. Mirza Sadler RBC NONE SEEN Abnormal 0-2 [facility] Comment on above: Performed By: #### B LDCX2 #### [facility] [address] [place] [address] Dr. Mirza Sadler SPEC GRAVITY 1.015 Normal 1.005-<=1. 025 [facility] Comment on above: Performed By: #### B LDCX2 #### [facility] [address] [place] [address] Dr. Mirza Sadler UA PROTEIN Negative Normal NEGATIVE/ TRACE [facility] Comment on above: Performed By: #### B LDCX2 #### [facility] [address] [place] [address] Dr. Mirza Sadler Urobilinogen Qn (U) 0.2 {Luisito'U}/dL Normal 0.2 - 1. 0 [facility] Comment on above: Performed By: #### B LDCX2 #### [facility] [address] [place] [address] Dr. Mirza Sadler WBC NONE SEEN Normal NONE SEEN [facility] Comment on above: Performed By: #### B LDCX2 #### [facility] [address] [place] [address] Dr. Mirza Sadler URINE T PROTEIN CREAT RATIOo n 11-30-2021 Protein (U) [Mass/Vol] 22.4 mg/dL Critically high <=12.0 [facility] Comment on above: Performed By: #### U RTPCR #### [facility] [address] [place] [address] Dr. Mirza Sadler UR PROT CREAT RAT 0.31 Normal [facility] Comment on above: Performed By: #### U RTPCR #### [facility] [address] [place] [address] Dr. Mirza Sadler URINE CREAT 73.05 mg/dL Normal 20.00-300. 00 [facility] Comment on above: Performed By: #### U RTPCR #### [facility] [address] [place] [address] Dr. Mirza Sadler NM HEPATOBILIARY SCAN W [...] by: HIGINIO FLANAGAN Date: 2021-11-24 11:55 Normal [facility] BNPon 10-27-2021 Natriuretic peptide B (Bld) [Mass/Vol] 574.0 pg/mL Normal <=900.0 [facility] Comment on above: Performed By: #### P T, PTT #### [facility] [address] [place] [address] Dr. Mirza Sadler CARDIAC PARUL ADMITon 022 CK [Catalytic activity/Vol] 70 U/L Normal 39-308 [facility] Comment on above: Performed By: #### P T, PTT #### [facility] [address] [place] [address] Dr. Mirza Sadler CK.MB [Mass/Vol] 1.10 ng/mL Normal <=3.60 [facility] Comment on above: Performed By: #### P T, PTT #### [facility] [address] [place] [address] Dr. Mirza Sadler HSTROP 22.3 pg/mL Normal 4.0-76.1 [facility] Comment on above: Result Comment: CUT- OFF POINTS HAVE BEEN ESTABLISHED BASED ON THE FOURTH UNIVERSAL DEFINITIONS OF MYOCARDIAL INFARCTION. THE UPPER REFERENCE LIMIT (URL) OF TROPONIN, DEFINED THE 99TH PERCENTILE OF cTnI DISTRIBUTION IN A REFERENCE POPULATION, HAS BEEN CONFIRMED THE DECISION THRESHOLD FOR [place] DIAGNOSIS. Performed By: #### P T, PTT #### [facility] [address] [place] [address] Dr. Mirza Sadler RACHEL 81 ng/mL Normal 16-96 [facility] Comment on above: Performed By: #### P T, PTT #### [facility] [address] [place] [address] Dr. Mirza Sadler CBC AUTO DIFFon 10-27-2021 BASO # 0.1 103/ul Normal 0.0-0.1 [facility] Comment on above: Performed By: #### E RUR #### [facility] [address] [place] [address] Dr. Mirza Sadler Basophils/100 WBC (Bld) 0.4 % Normal 0.2-2.0 [facility] Comment on above: Performed By: #### E RUR #### [facility] [address] [place] [address] Dr. Mirza Sadler EO # 0.1 103/ul Normal 0.0-0.7 [facility] Comment on above: Performed By: #### E RUR #### [facility] [address] [place] [address] Dr. Mirza Sadler Eosinophils/100 WBC (Bld) 0.4 % Critically low 0.9-7.0 [facility] Comment on above: Performed By: #### E RUR #### [facility] [address] [place] [address] Dr. Mirza Sadler Erythrocyte distribution width (RBC) [Ratio] 14.1 % Normal 11.0-15.0 [facility] Comment on above: Performed By: #### E RUR #### [facility] [address] [place] [address] Dr. Mirza Sadler Hematocrit (Bld) [Volume fraction] 41.0 % Critically low 42.0-54.0 [facility] Comment on above: Performed By: #### E RUR #### [facility] [address] [place] [address] Dr. Mirza Sadler Hemoglobin (Bld) [Mass/Vol] 14.1 g/dL Normal 14.0-18.0 [facility] Comment on above: Performed By: #### E RUR #### [facility] [address] [place] [address] Dr. Mirza Sadler IG # 0.05 10e3/ul Critically high 0.00-0.03 [facility] Comment on above: Performed By: #### E RUR #### [facility] [address] [place] [address] Dr. Mirza Sadler IG % 0.4 % Normal 0.0-0.5 [facility] Comment on above: Performed By: #### E RUR #### [facility] [address] [place] [address] Dr. Mirza Sadler LYMPH # 0.9 103/ul Critically low 1.2-3.8 [facility] Comment on above: Performed By: #### E RUR #### [facility] [address] [place] [address] Dr. Mirza Sadler Lymphocytes/100 WBC (Bld) 6.6 % Critically low 20.5-60.0 [facility] Comment on above: Performed By: #### E RUR #### [facility] [address] [place] [address] Dr. Mirza Sadler MANUAL DIFF REQ NO Normal [facility] Comment on above: Performed By: #### E RUR #### [facility] [address] [place] [address] Dr. Mirza Sadler MCH (RBC) [Entitic mass] 29.7 pg Normal 25.9-34.0 [facility] Comment on above: Performed By: #### E RUR #### [facility] [address] [place] [address] Dr. Mirza Sadler MCHC (RBC) [Mass/Vol] 34.4 g/dL Normal 29.9-35.2 [facility] Comment on above: Performed By: #### E RUR #### [facility] [address] [place] [address] Dr. Mirza Sadler MCV (RBC) [Entitic vol] 86.3 fL Normal 80.0-94.0 [facility] Comment on above: Performed By: #### E RUR #### [facility] [address] [place] [address] Dr. Mirza Sadler MONO # 0.4 103/ul Normal 0.3-0.8 [facility] Comment on above: Performed By: #### E RUR #### [facility] [address] [place] [address] Dr. Mirza Sadler Monocytes/100 WBC (Bld) 2.6 % Normal 1.7-12.0 [facility] Comment on above: Performed By: #### E RUR #### [facility] [address] [place] [address] Dr. Mirza Sadler NEUT # 12.2 103/ul Critically high 1.4-6.5 [facility] Comment on above: Performed By: #### E RUR #### [facility] [address] [place] [address] Dr. Mirza Sadler Neutrophils/100 WBC (Bld) 89.6 % Critically high 43.0-75.0 [facility] Comment on above: Performed By: #### E RUR #### [facility] [address] [place] [address] Dr. Mirza Sadler Platelet mean volume (Bld) [Entitic vol] 9.7 fL Normal 9.5-13.5 [facility] Comment on above: Performed By: #### E RUR #### [facility] [address] [place] [address] Dr. Mirza Sadler PLT 183 103/ul Normal 150-450 [facility] Comment on above: Performed By: #### E RUR #### [facility] [address] [place] [address] Dr. Mirza Sadler RBC 4.75 106/ul Normal 4.70-6.10 [facility] Comment on above: Performed By: #### E RUR #### [facility] [address] [place] [address] Dr. Mirza Sadler WBC 13.7 103/ul Critically high 4.0-11.0 [facility] Comment on above: Performed By: #### E RUR #### [facility] [address] [place] [address] Dr. Mirza Sadler CULTURE BLOODon 10-27-2021 Microscopic examination of blood, culture Culture Observations: NO GROWTH AT 5 DAYS. Normal [facility] Comment on above: Performed By: #### B LDCX2 #### [facility] [address] [place] [address] Dr. Mirza Sadler Performed By: #### H STROPN #### [facility] [address] [place] [address] Dr. Mirza Sadler Covid-19 PCR ([facility])on 09-30 SARS-CoV-2 (COVID-19) RNA RAMO+probe Ql (Unsp spec) Not detected Normal NOT DETECTED [facility] Comment on [...] for this test is supported by the [employer] of Health and Human Service's declaration [...] #### P T, PTT #### [facility] [address] [place] [address] Dr. Mirza Sadler ER URINE PROFILEon 2 Bilirubin Ql (U) Negative Normal NEGATIVE [facility] Comment on above: Performed By: #### H STROPN #### [facility] [address] [place] [address] Dr. Mirza Sadler Clarity (U) CLEAR Normal CLEAR [facility] Comment on above: Performed By: #### H STROPN #### [facility] [address] [place] [address] Dr. Mirza Sadler Color (U) YELLOW Normal YELLOW [facility] Comment on above: Performed By: #### H STROPN #### [facility] [address] [place] [address] Dr. Mirza Sadler ERUAHD A micrscopic examina tion will be performed if indicated. Normal [facility] [facility] Comment on above: Performed By: #### H STROPN #### [facility] [address] [address] [address] Mirza Sadler Glucose Ql (U) >1000 Abnormal NEGATIVE [facility] Comment on above: Performed By: #### H STROPN #### [facility] [address] [place] [address] Dr. Mirza Sadler Hemoglobin Ql (U) Negative Normal NEGATIVE [facility] Comment on above: Performed By: #### H STROPN #### [facility] [address] [address] [address] Mirza Sadler Ketones Ql (U) TRACE Abnormal NEGATIVE [facility] Comment on above: Performed By: #### H STROPN #### [facility] [address] [place] [address] Dr. Mirza Sadler LEUKOCYTES Negative Normal NEGATIVE [facility] Comment on above: Performed By: #### H STROPN #### [facility] [address] [address] [address] Mirza Sadler Nitrite Ql (U) Negative Normal NEGATIVE [facility] Comment on above: Performed By: #### H STROPN #### [facility] [address] [place] [address] Dr. Mirza Sadler pH (U) 5.5 [pH] Normal 5-9 [facility] Comment on above: Performed By: #### H STROPN #### [facility] [address] [place] [address] Dr. Mirza Sadler SPEC GRAVITY 1.010 Normal 1.005-<=1. 025 [facility] Comment on above: Performed By: #### H STROPN #### [facility] [address] [address] [address] Mirza Sadler UA PROTEIN Negative Normal NEGATIVE/ TRACE [facility] Comment on above: Performed By: #### H STROPN #### [facility] [address] [place] [address] Dr. Mirza Sadler UR MICRO IND NOT INDICATED Normal [facility] Comment on above: Performed By: #### H STROPN #### [facility] [address] [place] [address] Dr. Mirza Sadler Urobilinogen Qn (U) 0.2 {Luisito'U}/dL Normal 0.2 - 1. 0 [facility] Comment on above: Performed By: #### H STROPN #### [facility] [address] [place] [address] Dr. Mirza Sadler INFLUENZA A AND B AGon 10-27 INFLUANEGH SEE BELOW Normal [facility] Comment on above: Result Comment: Nega tive for Flu A protein angiten. Infection due to Flu A cannot be ruled out. Flu A angiten in the sample may be below the detection limit of the test. Performed By: #### B DIGITAL MARKETING SPECIALIST #### [facility] [address] [place] [address] Dr. Mirza Sadler INFLUBNEG SEE BELOW Normal [facility] Comment on above: Result Comment: Nega tive for Flu B protein antigen. Infection due to Flu B cannot be ruled out. Flu B antigen in the sample may be below the detection limit of the test. Performed By: #### B DIGITAL MARKETING SPECIALIST #### [facility] [address] [place] [address] Dr. Mirza Sadler INFLUENZA A AG Negative Normal NEGATIVE SEE COMMENT [facility] Comment on above: Performed By: #### B DIGITAL MARKETING SPECIALIST #### [facility] [address] [place] [address] Dr. Mirza Sadler INFLUENZA B AG Negative Normal NEGATIVE SEE COMMENT [facility] Comment on above: Performed By: #### B DIGITAL MARKETING SPECIALIST #### [facility] [address] [place] [address] Dr. Mirza Sadler INTERNAL CONTROLS Within Normal Limits Normal Wi thin Normal Limits [facility] Comment on above: Performed By: #### B DIGITAL MARKETING SPECIALIST #### [facility] [address] [place] [address] Dr. Mirza Sadler LACTATE/LACTIC ACIDon 2021 Lactate [Moles/Vol] 1.8 mmol/L Normal 0.4-1.9 [facility] Comment on above: Performed By: #### C MP, CMADM #### [facility] [address] [address] [address] Mirza Sadler LIPASEon 10-27-2021 Lipase [Catalytic activity/Vol] 87.0 U/L Normal 73.0-393.0 [facility] Comment on above: Performed By: #### P T, PTT #### [facility] [address] [place] [address] Dr. Mirza Sadler PH VENOUS BLOODon 10-27-2021 PCO2 VENOUS 37.6 mmHg Critically low 40.0-52.0 [facility] Comment on above: Performed By: #### P T, PTT #### [facility] [address] [place] [address] Dr. Mirza Sadler pH VENOUS 7.422 Normal 7.330-7.43 0 [facility] Comment on above: Performed By: #### P T, PTT #### [facility] [address] [place] [address] Dr. Mirza Sadler PROF 14(COMP METB)on 022 Albumin [Mass/Vol] 4.2 g/dL Normal 3.4-5.0 [facility] Comment on above: Performed By: #### P T, PTT #### [facility] [address] [place] [address] Dr. Mirza Sadler Albumin/Globulin [Mass ratio] 1.3 {ratio} Normal [facility] Comment on above: Performed By: #### P T, PTT #### [facility] [address] [place] [address] Dr. Mirza Sadler ALP [Catalytic activity/Vol] 121 U/L Critically high 46-116 [facility] Comment on above: Performed By: #### P T, PTT #### [facility] [address] [place] [address] Dr. Mirza Sadler ALT [Catalytic activity/Vol] 22 U/L Normal 16-63 [facility] Comment on above: Performed By: #### P T, PTT #### [facility] [address] [place] [address] Dr. Mirza Sadler Anion gap [Moles/Vol] 16.0 mmol/L Normal Th [facility] Comment on above: Performed By: #### P T, PTT #### [facility] [address] [address] [address] Mirza Sadler AST [Catalytic activity/Vol] 18 U/L Normal 15-37 [facility] Comment on above: Performed By: #### P T, PTT #### [facility] [address] [address] [address] Mirza Sadler Bilirubin [Mass/Vol] 1.3 mg/dL Critically high 0.2-1.0 [facility] Comment on above: Performed By: #### P T, PTT #### [facility] [address] [place] [address] Dr. Mirza Sadler Calcium [Mass/Vol] 8.9 mg/dL Normal 8.5-10.1 [facility] Comment on above: Performed By: #### P T, PTT #### [facility] [address] [place] [address] Dr. Mirza Sadler Chloride [Moles/Vol] 105 mmol/L Normal 98-107 [facility] Comment on above: Performed By: #### P T, PTT #### [facility] [address] [place] [address] Dr. Mirza Sadler CO2 [Moles/Vol] 23.7 mmol/L Normal 21.0-32.0 [facility] Comment on above: Performed By: #### P T, PTT #### [facility] [address] [place] [address] Dr. Mirza Sadler Creatinine [Mass/Vol] 1.79 mg/dL Critically high 0.70-1.30 [facility] Comment on above: Performed By: #### P T, PTT #### [facility] [address] [place] [address] Dr. Mirza Sadler EGFR-AF LAO 46 mL/min/1.73m2 Critically low >=60 [facility] Comment on above: Performed By: #### P T, PTT #### [facility] [address] [place] [address] Dr. Mirza Sadler EGFR-NON AF LAO 38 mL/min/1.73m2 Critically low >=60 [facility] Comment on above: Performed By: #### P T, PTT #### [facility] [address] [place] [address] Dr. Mirza Sadler Globulin (S) [Mass/Vol] 3.3 g/dL Normal [facility] Comment on above: Performed By: #### P T, PTT #### [facility] [address] [place] [address] Dr. Mirza Sadler Glucose [Mass/Vol] 195 mg/dL Critically high 74-106 [facility] Comment on above: Performed By: #### P T, PTT #### [facility] [address] [place] [address] Dr. Mirza Sadler Potassium [Moles/Vol] 3.7 mmol/L Normal 3.5-5.1 [facility] Comment on above: Performed By: #### P T, PTT #### [facility] [address] [place] [address] Dr. Mirza Sadler Protein [Mass/Vol] 7.5 g/dL Normal 6.4-8.2 [facility] Comment on above: Performed By: #### P T, PTT #### [facility] [address] [place] [address] Dr. Mirza Sadler Sodium [Moles/Vol] 141 mmol/L Normal 136-145 [facility] Comment on above: Performed By: #### P T, PTT #### [facility] [address] [place] [address] Dr. Mirza Sadler Urea nitrogen [Mass/Vol] 25.0 mg/dL Critically high 7.0-18.0 [facility] Comment on above: Performed By: #### P T, PTT #### [facility] [address] [place] [address] Dr. Mirza Sadler Urea nitrogen/Creatinine [Mass ratio] 14.0 mg/mg Normal [facility] Comment on above: Performed By: #### P T, PTT #### [facility] [address] [place] [address] Dr. Mirza Sadler PROTIMEon 10-27-2021 INR Coag (PPP) [Relative time] 1.07 {INR} Normal [facility] Comment on above: Performed By: #### P T, PTT #### [facility] [address] [place] [address] Dr. Mirza Sadler INR GUIDELINES SEE BELOW Normal [facility] Comment on above: Result Comment: RIVKA RED INR: 2.0 - 3.0 CONDITIONS NOT LISTED BELOW 2.5 - 3.5 FOR PROSTHETIC HEART VALVE REPLACEMENT 2.5 - 3.5 RECURRENT THROMBOSIS Performed By: #### P T, PTT #### [facility] [address] [place] [address] Dr. Mirza Sadler PT Coag (PPP) [Time] 11.5 s Normal 9.0-11.6 [facility] Comment on above: Performed By: #### P T, PTT #### [facility] [address] [place] [address] Dr. Mirza Sadler PTTon 10-27-2021 aPTT Coag (Bld) [Time] 25.1 s Normal 22.3-36.2 [facility] Comment on above: Performed By: #### P T, PTT #### [facility] [address] [place] [address] Dr. Mirza Sadler XR CHEST 1 Von [...] by: GAGAN CAREY Date: 2021-10-27 10:[address] [facility] 10-20-2021 CNPN Telephone ([employer] -- LANI LIZAMA ([id number]) 1950 M Date Time Provider Department 10/20/21 [...] [D47.2] Order(s):CBC + DIFF [[id number]] Order #: [id number] FUTURE Prescriptions as of 10/24/2021 - famotidine [...] Status:Closed by VEE DAY on 10/24/21 Normal [facility] RAD - CT Reporton 10-06-2021 RAD - CT Report [id number]:127 Normal [facility] CT ABD/PELVIS WO CONon 10-03 CT ABD/PELVIS [...] by: HIGINIO FLANAGAN Date: 2021-10-03 16:29 Normal [facility] Ambulatory Visit Summaryon 0 09-29-2021 Ambulatory [...] RLQ ASHD (arteriosclerotic heart disease) Atheroscler of [place] artery of both legs with intermit claudication [...] infrarenal abdominal aorta due to atherosclerosis Normal [facility] Outside Colonoscopyon 2021 Outside Colonoscopy [id number]:127 Normal [facility] Physician Referralon Physician Referral [id number]:127 Normal [facility] PROF 14(COMP METB)on Albumin [Mass/Vol] 4.1 g/dL Normal 3.4-5.0 [facility] Comment on above: Performed By: #### P T, PTT #### [facility] [address] [place] [address] Dr. Mirza Sadler Albumin/Globulin [Mass ratio] 1.2 {ratio} Normal [facility] Comment on above: Performed By: #### P T, PTT #### [facility] [address] [place] [address] Dr. Mirza Sadler ALP [Catalytic activity/Vol] 132 U/L Critically high 46-116 [facility] Comment on above: Performed By: #### P T, PTT #### [facility] [address] [address] [address] Mirza Sadler ALT [Catalytic activity/Vol] 30 U/L Normal 16-63 [facility] Comment on above: Performed By: #### P T, PTT #### [facility] [address] [place] [address] Dr. Mirza Sadler Anion gap [Moles/Vol] 10.7 mmol/L Normal [facility] Comment on above: Performed By: #### P T, PTT #### [facility] [address] [place] [address] Dr. Mirza Sadler AST [Catalytic activity/Vol] 21 U/L Normal 15-37 [facility] Comment on above: Performed By: #### P T, PTT #### [facility] [address] [place] [address] Dr. Mirza Sadler Bilirubin [Mass/Vol] 0.7 mg/dL Normal 0.2-1.0 [facility] Comment on above: Performed By: #### P T, PTT #### [facility] [address] [place] [address] Dr. Mirza Sadler Calcium [Mass/Vol] 9.0 mg/dL Normal 8.5-10.1 [facility] Comment on above: Performed By: #### P T, PTT #### [facility] [address] [place] [address] Dr. Mirza Sadler Chloride [Moles/Vol] 106 mmol/L Normal 98-107 [facility] Comment on above: Performed By: #### P T, PTT #### [facility] [address] [place] [address] Dr. Mirza Sadler CO2 [Moles/Vol] 27.5 mmol/L Normal 21.0-32.0 [facility] Comment on above: Performed By: #### P T, PTT #### [facility] [address] [place] [address] Dr. Mirza Sadler Creatinine [Mass/Vol] 1.77 mg/dL Critically high 0.70-1.30 [facility] Comment on above: Performed By: #### P T, PTT #### [facility] [address] [place] [address] Dr. Mirza Sadler EGFR-AF LAO 46 mL/min/1.73m2 Critically low >=60 [facility] Comment on above: Performed By: #### P T, PTT #### [facility] [address] [place] [address] Dr. Mirza Sadler EGFR-NON AF LAO 38 mL/min/1.73m2 Critically low >=60 [facility] Comment on above: Performed By: #### P T, PTT #### [facility] [address] [place] [address] Dr. Mirza Sadler Globulin (S) [Mass/Vol] 3.5 g/dL Normal [facility] Comment on above: Performed By: #### P T, PTT #### [facility] [address] [address] [address] Mirza Sadler Glucose [Mass/Vol] 135 mg/dL Critically high 74-106 [facility] Comment on above: Performed By: #### P T, PTT #### [facility] [address] [address] [address] Mirza Sadler Potassium [Moles/Vol] 4.2 mmol/L Normal 3.5-5.1 [facility] Comment on above: Performed By: #### P T, PTT #### [facility] [address] [place] [address] Dr. Mirza Sadler Protein [Mass/Vol] 7.6 g/dL Normal 6.4-8.2 [facility] Comment on above: Performed By: #### P T, PTT #### [facility] [address] [place] [address] Dr. Mirza Sadler Sodium [Moles/Vol] 140 mmol/L Normal 136-145 [facility] Comment on above: Performed By: #### P T, PTT #### [facility] [address] [place] [address] Dr. Mirza Sadler Urea nitrogen [Mass/Vol] 17.0 mg/dL Normal 7.0-18.0 [facility] Comment on above: Performed By: #### P T, PTT #### [facility] [address] [place] [address] Dr. Mirza Sadler Urea nitrogen/Creatinine [Mass ratio] 9.6 mg/mg Normal [facility] Comment on above: Performed By: #### P T, PTT #### [facility] [address] [place] [address] Dr. Mirza Sadler US SINGLE QUAD RT [...] by: HIGINIO FLANAGAN Date: 2021-08-27 08:40 Normal [facility] A1C HEMOGLOBINon 07-17-2021 HbA1c (Bld) [Mass fraction] 6.9 % [employer] Other Glucose - FINGER STICKon Glucose [Mass/Vol] 180 mg/dL [employer] Other HbA1c (Bld) [Mass fraction]o n 07-17-2021 A1C HEMOGLOBIN [employer] Other A1C with Estimated Average G luon 04-10-2021 HbA1c (Bld) [Mass fraction] 6.4 % [employer] Other HbA1c (Bld) [Mass fraction] 243 % [employer] Other Glucoseon 04-10-2021 Glucose [Mass/Vol] 243 mg/dL [employer] Other A1C HEMOGLOBINon 01-03-2021 HbA1c (Bld) [Mass fraction] 6.6 % [employer] Other Glucose - FINGER STICKon Glucose [Mass/Vol] 142 mg/dL [employer] Other HbA1c (Bld) [Mass fraction]o n 01-03-2021 A1C HEMOGLOBIN [facility] LANI LIZAMA ([id number]) 1950 M Date Time Provider Department 10/27/20 [...] Status:Closed by ANGELINE WARE on 10/28/20 Normal [facility] Cardiovascular Lab Reporton 10-16-2018 Cardiovascular Lab Report [facility] Patient Name: Lani Lizama [facility] MR #: [id number] Physician: Pinky Bishop, Department of M.D. Medicine Service Date: 10/15/2018 Division of Birthdate: 1950 Cardiology Room #: [id number] Adult Cardiovascular Services [facility] [address] [facility] [place] [address] Cardiovascular Laboratory Report FINAL IMPRESSIONS: 1. Severe three-vessel [place] coronary artery disease. 2. Byou-vi-psvr bypass grafts patent. 3. Mild in-stent restenosis [...] 4. Follow up with me in the [facility] in the next 4-6 weeks. 5. [...] guidance and using a micropuncture kit. A 6-Citizen Of [place] Glidesheath was inserted without difficulty. Coronary angiography [...] of the vessel. There is evidence of rkyy-yz-ppbtw collaterals. The distal vessel is supplied via [...] is a long stented segment in the wotbourv-ue-rnqgyi portion of the vessel with 30% in-stent restenosis. The vessel distal to the touchdown shows caliber reduction and no discrete stenosis. There is diffuse disease in the branches. Saphenous vein graft to the posterior descending artery. This is widely patent. It shows an extensive stented segment from jkigslzo-xw-fsxheoutnx of the vessel. There is a 40%-50% [...] Bishop M.D. Date Trans: 10/16/2018 05:01 Nakul/gatito [id number] cc: Harley Crespo D.O. [address] [place] [id number] Normal [facility] BASIC METABOLIC PANELon 09-29 Calcium [Mass/Vol] 8.9 mg/dL Normal 8.6-10.3 [facility] Comment on above: Order Comment: No: D o not add to previous draw Performed By: #### 1 0070, [id number] #### [facility] [address] [place] [address], [place] Chloride [Moles/Vol] 110 mmol/L High 98-107 [facility] Comment on above: Order Comment: No: D o not add to previous draw Performed By: #### 1 69, [id number] #### [facility] [address] [place] [address], [place] CO2 [Moles/Vol] 26 mmol/L Normal 21-31 [facility] Comment on above: Order Comment: No: D o not add to previous draw Performed By: #### 1 69, [id number] #### [facility] [address] [place] [address], [place] Creatinine [Mass/Vol] 1.52 mg/dL High 0.70-1.30 [facility] Comment on above: Order Comment: No: D o not add to previous draw Performed By: #### 1 69, [id number] #### [facility] [address] [place] [address], [place] GFR/1.73 sq M predicted among blacks MDRD (S/P/Bld) [Vol rate/Area] 56 ml/min/1.73sq m Abnormal >60 [facility] Comment on above: Order Comment: No: D o not add to previous draw Performed By: #### 1 69, [id number] #### [facility] [address] [place] [address], [place] GFR/1.73 sq M predicted among non-blacks MDRD (S/P/Bld) [Vol rate/Area] 46 ml/min/1.73sq m Abnormal >60 [facility] Comment on above: Order Comment: No: D o not add to previous draw Performed By: #### 1 69, [id number] #### [facility] [address] [place] [address], [place] Glucose [Mass/Vol] 89 mg/dL Normal 70-100 [facility] Comment on above: Order Comment: No: D o not add to previous draw Performed By: #### 1 69, [id number] #### [facility] [address] [place] [address], [facility] Potassium [Moles/Vol] 3.9 mmol/L Normal 3.5-5.1 [facility] Comment on above: Order Comment: No: D o not add to previous draw Performed By: #### 1 69, [id number] #### [facility] [address] [place] [id number], [facility] Sodium [Moles/Vol] 141 mmol/L Normal 136-145 [facility] Comment on above: Order Comment: No: D o not add to previous draw Performed By: #### 1 69, [id number] #### [facility] [address] [place] [address], [facility] Urea nitrogen [Mass/Vol] 19 mg/dL Normal 7-25 [facility] Comment on above: Order Comment: No: D o not add to previous draw Performed By: #### 1 69, [id number] #### [facility] [address] [facility] [facility] [place] [place] [address], [facility] CBC W/DIFFon 10-15-2018 ABS BASOPHILS 0.1 10*3/uL Normal 0.0-0.2 [facility] Comment on above: Order Comment: No: D o not add to previous draw Performed By: #### 5 0103 #### [facility] [address] [place] [address], [facility] ABS IMM GRANS 0.0 10*3/uL Normal 0.0-0.2 [facility] Comment on above: Order Comment: No: D o not add to previous draw Performed By: #### 5 0103 #### [facility] [address] [place] [address], [facility] [facility] ABS NEUTROPHILS 3.5 10*3/uL Normal 1.6-7.6 [facility] Comment on above: Order Comment: No: D o not add to previous draw Performed By: #### 5 0103 #### [facility] [address] [place] [address], [facility] Basophils/100 WBC (Bld) 0.8 % Normal 0.0-1.0 [facility] Comment on above: Order Comment: No: D o not add to previous draw Performed By: #### 5 0103 #### [facility] [address] [place] [address], [facility] Eosinophils (Bld) [#/Vol] 0.3 10*3/uL Normal 0.0-0.5 [facility] Comment on above: Order Comment: No: D o not add to previous draw Performed By: #### 5 0103 #### [facility] [address] [place] [address], [facility] Eosinophils/100 WBC (Bld) 3.9 % Normal 0.0-6.0 [facility] Comment on above: Order Comment: No: D o not add to previous draw Performed By: #### 5 0103 #### [facility] [address] [place] [id number], [facility] Erythrocyte distribution width (RBC) [Ratio] 13.5 % Normal 11.5-15.0 [facility] Comment on above: Order Comment: No: D o not add to previous draw Performed By: #### 5 0103 #### [facility] [address] [place] [id number], [facility] Hematocrit (Bld) [Volume fraction] 39.7 % Normal 39.0-50.0 [facility] Comment on above: Order Comment: No: D o not add to previous draw Performed By: #### 5 0103 #### [facility] [address] [place] [id number], [facility] Hemoglobin (Bld) [Mass/Vol] 13.0 g/dL Normal 13.0-17.0 [facility] Comment on above: Order Comment: No: D o not add to previous draw Performed By: #### 5 0103 #### [facility] [address] [place] [address], [facility] IMMATURE GRANS 0.3 % Normal 0.0-1.0 [facility] Comment on above: Order Comment: No: D o not add to previous draw Performed By: #### 5 0103 #### [facility] [address] [place] [address], [facility] Lymphocytes (Bld) [#/Vol] 1.9 10*3/uL Normal 1.2-4.0 [facility] Comment on above: Order Comment: No: D o not add to previous draw Performed By: #### 5 0103 #### [facility] [address] [place] [address], [facility] Lymphocytes/100 WBC (Bld) 30.1 % Normal 20.0-45.0 [facility] Comment on above: Order Comment: No: D o not add to previous draw Performed By: #### 5 0103 #### [facility] [address] [facility] [place] [address], [facility] MCH (RBC) [Entitic mass] 30.0 pg Normal 27.0-33.0 [facility] Comment on above: Order Comment: No: D o not add to previous draw Performed By: #### 5 0103 #### [facility] [address] [facility]. [place] [id number], [facility] MCHC (RBC) [Mass/Vol] 32.7 g/dL Normal 32.0-35.0 [facility] Comment on above: Order Comment: No: D o not add to previous draw Performed By: #### 5 0103 #### [facility] [address] [place] [id number], [facility] MCV (RBC) [Entitic vol] 91.5 fL Normal 82.0-98.0 [facility] Comment on above: Order Comment: No: D o not add to previous draw Performed By: #### 5 0103 #### [facility] [address] [place] [address], [facility] Monocytes (Bld) [#/Vol] 0.7 10*3/uL Normal 0.1-1.0 [facility] Comment on above: Order Comment: No: D o not add to previous draw Performed By: #### 5 0103 #### [facility] [address] [place] [address], [facility] MONOS 10.7 % Normal 5.0-12.0 [facility] Comment on above: Order Comment: No: D o not add to previous draw Performed By: #### 5 3 #### [facility] [address] [place] [address], [facility] Neutrophils/100 WBC (Bld) 54.2 % Normal 40.0-72.0 [facility] Comment on above: Order Comment: No: D o not add to previous draw Performed By: #### 5 3 #### [facility] [address] [place] [address], [facility] Nucleated RBC/100 WBC (Bld) [Ratio] 0 % Normal 0-0 [facility] Comment on above: Order Comment: No: D o not add to previous draw Performed By: #### 5 102 #### [facility] [address] [facility] [place] [address], [facility] PLAT CNT 164 10*3/uL Normal 150-400 [facility] Comment on above: Order Comment: No: D o not add to previous draw Performed By: #### 5 3 #### [facility] [address] [place] [address], [facility] RBC (Bld) [#/Vol] 4.34 10*6/uL Normal 4.20-5.70 [facility] Comment on above: Order Comment: No: D o not add to previous draw Performed By: #### 5 3 #### [facility] [address] WBC (Bld) [#/Vol] 6.38 10*3/uL Normal 4.00-10.60 [facility] Comment on above: Order Comment: No: D o not add to previous draw Performed By: #### 5 0103 #### [facility] [address] MAGNESIUM BLOODon 10-15-2018 Magnesium [Mass/Vol] 2.0 mg/dL Normal 1.9-2.7 [facility] Comment on above: Order Comment: No: D o not add to previous draw Performed By: #### 1 0070, [id number] #### [facility] [address] [facility] PROTHROMBIN TIMEon 9 INR Coag (PPP) [Relative time] 1.11 {INR} Normal 0.91-1.16 [facility] Comment on above: Order Comment: [...] #### 5 6101 #### [facility] PT Coag (PPP) [Time] 14.3 s Normal 12.3-14.8 [facility] Comment on above: Order Comment: No: D o not add to previous draw Result Comment: ALL RESULTS MUST BE INTERPRETED WITH RESPECT TO BLOOD DRAWING ARTIFACT OR DILUTION ERROR OF ANTICOAGULANT AT THE TIME OF SAMPLING. Performed By: #### 5 6101 #### [address] POC GLUCOSE LABon 10-14-2018 Glucose [Mass/Vol] 180 mg/dL High 70-100 [facility] Comment on above: Performed By: #### 8 5499 #### [address] Cardiovascular Lab Reporton 02-25-2018 Cardiovascular Lab Report [facility] Patient Name: [facility] MR #: [id number] Physician: Pinky Bishop, Department of M.D. Medicine Service Date: 02/24/2018 Division of Birthdate: 1950 Cardiology Room #: 3AB [id number] Adult Cardiovascular Services [place] [address] Cardiovascular Laboratory Report FINAL IMPRESSIONS: 1. 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 2. Severe 3-vessel [place] coronary artery disease. 3. 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 4. Tfugwkfj-qi-hbwjrn systemic hypertension. RECOMMENDATIONS: 1. Aspirin 81 mg lifelong. 2. Plavix 75 mg daily for a minimum of 6 months, preferably care home. 3. Aggressive cardiovascular risk factor modification. 4. Optimization of medical management; high intensity statin therapy as tolerated, we will switch his Toprol-XL to Coreg 25 mg p.o. b.i.d., and angiotensin-converting enzyme inhibitor. 5. Follow up with me in the [facility] in the next 2-3 weeks. 6. Follow up with Dr. Crespo as scheduled. PROCEDURES: Limited femoral angiography, bilateral selective coronary angiography, saphenous vein graft angiography, angiography of the left internal mammary artery graft, limited angiography of the left subclavian, percutaneous balloon angioplasty, and Synergy drug-eluting stent placement to the saphenous vein graft to the obtuse marginal, placement of a 6-Citizen Of [place] MYNXGRIP closure device. METHODS: After risks, benefits, and alternatives were explained, written informed consent was obtained. The patient was prepped and draped in usual sterile fashion over both groins. Using 1% lidocaine solution, local infiltration anesthesia was achieved over the right groin. Using a micropuncture kit, access of the right common femoral artery was obtained. A 6-Citizen Of [place] 11 cm sheath was exchanged then without [...] to proceed with an interventional procedure. A 6-Citizen [place] JR4 guide catheter was advanced in and [...] the procedure. All catheters were removed. A 6-[place]izen [place] MYNXGRIP closure device was deployed per protocol achieving optimal hemostasis. Overall, the patient tolerated the procedure well. There were no overt complications. [facility] FINDINGS: Hemodynamics: AO [...] is a 30% touchdown stenosis of the [place] vessel. There is evidence of lonu-sc-jpwnn collaterals supplying the distal right coronary artery. Limited femoral angiography, this shows mild plaque and anatomy suitable for closure device. INDICATIONS: Unstable angina. Electronically Signed by: Pinky Bishop M.D. 03/06/2018 12:15 P Pinky Bishop M.D. Date Dict: 02/24/2018/01:39 Hanh Bishop M.D. Date Trans: 02/25/2018 02:12 Nakul/gatito [id number] cc: Harley Crespo D.O. [address] [place] [address] A [facility] [id number] Normal [facility] POC GLUCOSE LABon 02-25-2018 Glucose [Mass/Vol] 150 mg/dL High 70-100 [facility] Comment on above: Performed By: #### 8 5499 #### [facility] [address] [place] [address], [facility] POC GLUCOSE LABon 02-24-2018 Glucose [Mass/Vol] 192 mg/dL High 70-100 [facility] Comment on above: Performed By: #### 8 5499 #### [facility] [address] [place] [address], [facility] Glucose [Mass/Vol] 186 mg/dL High 70-100 [facility] Comment on above: Performed By: #### 8 5499 #### [facility] [address] [place] [address], [facility] Vital Signs Date Time Vital Sign Value Performing Clinician Facility 12-12-2023 08:250400 Body height 170.18 cm [facility] 12-12-2023 08:250400 Body mass index (BMI) [Ratio] 27.4 kg/m2 [facility] 12-12-2023 08:25040 Body weight 79.49 kg [facility] 12-12-2023 08:250400 Diastolic blood pressure 79 mm[Hg] [facility] 12-12-2023 08:25-0400 Heart rate 80 /min [facility] 12-12-2023 08:250400 Respiratory rate 12 /min [facility] 12-12-2023 08:250400 Systolic blood pressure 127 mm[Hg] [facility] 10-17-2023 09:21-0400 Body height 170.18 cm [facility] 10-17-2023 09:21-0400 Body mass index (BMI) [Ratio] 28.2 kg/m2 [facility] 10-17-2023 09:21-0400 Body weight 81.81 kg [facility] 10-17-2023 09:21-0400 Diastolic blood pressure 79 mm[Hg] [facility] 10-17-2023 09:21-0400 Heart rate 70 /min [facility] 10-17-2023 09:21-0400 Respiratory rate 18 /min [facility] 10-17-2023 09:21-0400 SaO2% (BldA) [Mass fraction] 97 % [facility] 10-17-2023 09:21-0400 Systolic blood pressure 133 mm[Hg] [facility] 08-12-2023 08:37-0400 Body height 170.18 cm [facility] 08-12-2023 08:37-0400 Body mass index (BMI) [Ratio] 27.6 kg/m2 [facility] 08-12-2023 08:37-0400 Body weight 79.88 kg [facility] 08-12-2023 08:37-0400 Diastolic blood pressure 84 mm[Hg] [facility] 08-12-2023 08:37-0400 Heart rate 82 /min [facility] 08-12-2023 08:37-0400 Respiratory rate 12 /min [facility] 08-12-2023 08:37-0400 Systolic blood pressure 134 mm[Hg] [facility] 07-02-2023 08:54-0400 Body height 170.18 cm [facility] 07-02-2023 08:54-0400 Body mass index (BMI) [Ratio] 27.3 kg/m2 [facility] 07-02-2023 08:54-0400 Body temperature 96.5 [degF] [facility] 07-02-2023 08:54-0400 Body weight 79.09 kg [facility] 07-02-2023 08:54-0400 Diastolic blood pressure 79 mm[Hg] [facility] 07-02-2023 08:54-0400 Heart rate 87 /min [facility] 07-02-2023 08:54-0400 Respiratory rate 18 /min [facility] 07-02-2023 08:54-0400 SaO2% (BldA) [Mass fraction] 96 % [facility] 07-02-2023 08:54-0400 Systolic blood pressure 120 mm[Hg] [facility] 06-18-2023 10:51-0400 Body height 170.18 cm [facility] 06-18-2023 10:51-0400 Body mass index (BMI) [Ratio] 26.6 kg/m2 [facility] 06-18-2023 10:51-0400 Body weight 77.11 kg [facility] 06-18-2023 10:51-0400 Diastolic blood pressure 84 mm[Hg] [facility] 06-18-2023 10:51-0400 Heart rate 95 /min [facility] 06-18-2023 10:51-0400 Respiratory rate 18 /min [facility] 06-18-2023 10:51-0400 SaO2% (BldA) [Mass fraction] 97 % [facility] 06-18-2023 10:51-0400 Systolic blood pressure 127 mm[Hg] [facility] 05-03-2023 09:30-0500 Body height 170.18 cm DO Harley Ball Work Phone: [facility] 05-03-2023 09:30-0500 Body weight 77.29 kg DO Harley Ball Work Phone: [facility] 05-03-2023 09:30-0500 Diastolic blood pressure 85 mm[Hg] DO Harley Ball Work Phone: [facility] 05-03-2023 09:30-0500 Systolic blood pressure 126 mm[Hg] DO Harley Ball Work Phone: [facility] 03-12-2023 11:15-0500 Body height 170.18 cm Arlen Kwong Other [facility] 03-12-2023 11:15-0500 Body mass index (BMI) [Ratio] 27.03 kg/m2 Tondra Mapus Other [employer] Other 03-12-2023 11:15-0500 Body weight 78.29 kg Tondra Mapus Other [facility] 03-12-2023 11:15-0500 Diastolic blood pressure 79 mm[Hg] Tondra Mapus Other [facility] 03-12-2023 11:15-0500 Respiratory rate 18 /min Tondra Mapus Other [employer] Other 03-12-2023 11:15-0500 SaO2% (BldA) [Mass fraction] 98 % Tondra Mapus Other [employer] Other 03-12-2023 11:15-0500 Systolic blood pressure 128 mm[Hg] Tondra Mapus Other [facility] 01-07-2023 10:00-0400 Body height 170.18 cm Kingsley Latisha Other [employer] Other 01-07-2023 10:00-0400 Body mass index (BMI) [Ratio] 27 kg/m2 Kingsley Latisha Other [employer] Other 01-07-2023 10:00-0400 Body temperature 97.7 [degF] Kingsley Latisha Other [employer] Other 01-07-2023 10:00-0400 Body weight 78.2 kg Kingsley Latisha Other [employer] Other 01-07-2023 10:00-0400 Diastolic blood pressure 73 mm[Hg] Kingsley Latisha Other [employer] Other 01-07-2023 10:00-0400 Respiratory rate 16 /min Kingsley Latisha Other [employer] Other 01-07-2023 10:00-0400 SaO2% (BldA) [Mass fraction] 98 % Kingsley Latisha Other [employer] Other 01-07-2023 10:00-0400 Systolic blood pressure 108 mm[Hg] Kingsley Latisha Other [employer] Other 12-31-2022 09:30-0400 Body height 170.18 cm Harley Ball Other [employer] Other 12-31-2022 09:30-0400 Body mass index (BMI) [Ratio] 27.03 kg/m2 Harley Ball Other [employer] Other 12-31-2022 09:30-0400 Body weight 78.29 kg Harley Ball Other [employer] Other 12-31-2022 09:30-0400 Diastolic blood pressure 69 mm[Hg] Harley Ball Other [employer] Other 12-31-2022 09:30-0400 Respiratory rate 16 /min Halrey Ball Other [employer] Other 12-31-2022 09:30-0400 Systolic blood pressure 102 mm[Hg] Harley Ball Other [employer] Other 08-31-2022 08:45-0400 Body height 170.18 cm Harley Ball Other [employer] Other 08-31-2022 08:45-0400 Body mass index (BMI) [Ratio] 26.72 kg/m2 Harley Ball Other [employer] Other 08-31-2022 08:45-0400 Body weight 77.38 kg Harley Ball Other [employer] Other 08-31-2022 08:45-0400 Diastolic blood pressure 69 mm[Hg] Harley Ball Other [employer] Other 08-31-2022 08:45-0400 Respiratory rate 12 /min Harley Ball Other [employer] Other 08-31-2022 08:45-0400 Systolic blood pressure 102 mm[Hg] Harley Ball Other [employer] Other 07-02-2022 10:40-0400 Body height 170.18 cm Kingsley Latisha Other [employer] Other 07-02-2022 10:40-0400 Body mass index (BMI) [Ratio] 27.69 kg/m2 Kingsley Latisha Other [employer] Other 07-02-2022 10:40-0400 Body temperature 96.4 [degF] Kingsley Latisha Other [employer] Other 07-02-2022 10:40-0400 Body weight 80.2 kg Kingsley Latisha Other [employer] Other 07-02-2022 10:40-0400 Diastolic blood pressure 71 mm[Hg] Kingsley Latisha Other [employer] Other 07-02-2022 10:40-0400 Respiratory rate 16 /min Kingsley Latisha Other [employer] Other 07-02-2022 10:40-0400 SaO2% (BldA) [Mass fraction] 97 % Kingsley Latisha Other [employer] Other 07-02-2022 10:40-0400 Systolic blood pressure 115 mm[Hg] Kingsley Latisha Other [employer] Other 06-28-2022 09:30-0400 Body height 170.18 cm Harley Ball Other [employer] Other 06-28-2022 09:30-0400 Body mass index (BMI) [Ratio] 27.16 kg/m2 Harley Ball Other [employer] Other 06-28-2022 09:30-0400 Body weight 78.65 kg Harley Ball Other [employer] Other 06-28-2022 09:30-0400 Diastolic blood pressure 66 mm[Hg] Harley Ball Other [employer] Other 06-28-2022 09:30-0400 Respiratory rate 12 /min Harley Ball Other [employer] Other 06-28-2022 09:30-0400 Systolic blood pressure 115 mm[Hg] Harley Ball Other [employer] Other 06-26-2022 08:45-0400 Body height 170.18 cm Arlen Kwong Other [employer] Other 06-26-2022 08:45-0400 Body mass index (BMI) [Ratio] 27.75 kg/m2 Tondra Mapus Other [employer] Other 06-26-2022 08:45-0400 Body weight 80.38 kg Tondra Mapus Other [employer] Other 06-26-2022 08:45-0400 Diastolic blood pressure 61 mm[Hg] Tondra Mapus Other [employer] Other 06-26-2022 08:45-0400 Respiratory rate 16 /min Tondra Mapus Other [employer] Other 06-26-2022 08:45-0400 SaO2% (BldA) [Mass fraction] 96 % Tondra Mapus Other [employer] Other 06-26-2022 08:45-0400 Systolic blood pressure 105 mm[Hg] Tondra Mapus Other [employer] Other 03-20-2022 09:15-0500 Body height 170.18 cm Tondra Mapus Other [employer] Other 03-20-2022 09:15-0500 Body mass index (BMI) [Ratio] 26.15 kg/m2 Tondra Mapus Other [employer] Other 03-20-2022 09:15-0500 Body weight 75.75 kg Tondra Mapus Other [employer] Other 03-20-2022 09:15-0500 Diastolic blood pressure 57 mm[Hg] Tondra Mapus Other [employer] Other 03-20-2022 09:15-0500 Respiratory rate 16 /min Tondra Desireeus Other [employer] Other 03-20-2022 09:15-0500 SaO2% (BldA) [Mass fraction] 98 % Tondra Desireeus Other [employer] Other 03-20-2022 09:15-0500 Systolic blood pressure 117 mm[Hg] Tondra Mapus Other [employer] Other 01-17-2022 11:45-0400 Body height 170.18 cm DO Harley Ball Work Phone: [facility] 01-17-2022 11:22-0400 Diastolic blood pressure 68 mm[Hg] DO Harley Ball Work Phone: [facility] 01-17-2022 11:22-0400 Heart rate 60 /min DO Harley Ball Work Phone: [facility] 01-17-2022 11:22-0400 Systolic blood pressure 118 mm[Hg] DO Harley Ball Work Phone: [facility] 01-17-2022 11:05-0400 Body temperature 97.4 [degF] DO Harley Ball Work Phone: [facility] 01-17-2022 11:05-0400 Respiratory rate 18 /min DO Harley Ball Work Phone: [facility] 01-17-2022 11:05-0400 SaO2% (BldA) [Mass fraction] 95 % DO Harley Ball Work Phone: [facility] 01-17-2022 06:58-0400 Body weight 77.9 kg DO Harley Ball Work Phone: [facility] 01-15-2022 15:23-0400 Inhaled oxygen flow rate 2 L/min DO Harley Ball Work Phone: [facility] 12-18-2021 09:45-0400 Body height 170.18 cm Tondra Mapus Other [employer] Other 12-18-2021 09:45-0400 Body mass index (BMI) [Ratio] 27.25 kg/m2 Tondra Mapus Other [employer] Other 12-18-2021 09:45-0400 Body weight 78.93 kg Tondra Mapus Other [employer] Other 12-18-2021 09:45-0400 Diastolic blood pressure 65 mm[Hg] Tondra Mapus Other [employer] Other 12-18-2021 09:45-0400 Respiratory rate 16 /min Tondra Mapus Other [employer] Other 12-18-2021 09:45-0400 SaO2% (BldA) [Mass fraction] 97 % Tondra Mapus Other [employer] Other 12-18-2021 09:45-0400 Systolic blood pressure 133 mm[Hg] Tondra Mapus Other [employer] Other 09-29-2021 13:13-0400 Blood Pressure Location [facility] [place] 09-29-2021 13:13-0400 Diastolic blood pressure 74 mm[Hg] [facility] [place] 09-29-2021 13:13-0400 Heart rate 60 /min [facility] [place] 09-29-2021 13:13-0400 Respiratory rate 16 /min [facility] 09-29-2021 13:13-0400 Systolic blood pressure 138 mm[Hg] [facility] 07-17-2021 09:45-0400 Body height 170.18 cm Tondra Mapus Other [employer] Other 07-17-2021 09:45-0400 Body mass index (BMI) [Ratio] 30.69 kg/m2 Tondra Mapus Other [employer] Other 07-17-2021 09:45-0400 Body weight 88.91 kg Tondra Mapus Other [employer] Other 07-17-2021 09:45-0400 Diastolic blood pressure 73 mm[Hg] Tondra Mapus Other [employer] Other 07-17-2021 09:45-0400 Respiratory rate 16 /min Tondra Mapus Other [employer] Other 07-17-2021 09:45-0400 SaO2% (BldA) [Mass fraction] 97 % Tondra Mapus Other [employer] Other 07-17-2021 09:45-0400 Systolic blood pressure 163 mm[Hg] Tondra Mapus Other [employer] Other 06-06-2021 10:20-0500 Body height 170.18 cm Kingsley Latisha Other [employer] Other 06-06-2021 10:20-0500 Body mass index (BMI) [Ratio] 30.29 kg/m2 Kingsley Latisha Other [employer] Other 06-06-2021 10:20-0500 Body temperature 96.1 [degF] Kingsley Latisha Other [employer] Other 06-06-2021 10:20-0500 Body weight 87.73 kg Kingsley Latisha Other [employer] Other 06-06-2021 10:20-0500 Diastolic blood pressure 70 mm[Hg] Kingsley Latisha Other [employer] Other 06-06-2021 10:20-0500 Respiratory rate 18 /min Kingsley Latisha Other [facility] [employer] Other 06-06-2021 10:20-0500 SaO2% (BldA) [Mass fraction] 97 % Kingsley Latisha Other [employer] Other 06-06-2021 10:20-0500 Systolic blood pressure 160 mm[Hg] Kingsley Latisha Other [employer] Other 04-10-2021 09:15-0500 Body height 170.18 cm Tondra Mapus Other [employer] Other 04-10-2021 09:15-0500 Body mass index (BMI) [Ratio] 30.99 kg/m2 Tondra Mapus Other [employer] Other 04-10-2021 09:15-0500 Body weight 89.77 kg Tondra Mapus Other [employer] Other 04-10-2021 09:15-0500 Diastolic blood pressure 64 mm[Hg] Tondra Mapus Other [employer] Other 04-10-2021 09:15-0500 Respiratory rate 18 /min Tondra Mapus Other [employer] Other 04-10-2021 09:15-0500 SaO2% (BldA) [Mass fraction] 98 % Tondra Mapus Other [employer] Other 04-10-2021 09:15-0500 Systolic blood pressure 136 mm[Hg] Tondra Mapus Other [employer] Other 02-14-2021 10:00-0500 Body height 170.18 cm Kingsley Latisha Other [employer] Other 02-14-2021 10:00-0500 Body mass index (BMI) [Ratio] 30.98 kg/m2 Kingsley Latisha Other [employer] Other 02-14-2021 10:00-0500 Body temperature 96 [degF] Kingsley Latisha Other [employer] Other 02-14-2021 10:00-0500 Body weight 89.72 kg Kingsley Latisha Other [employer] Other 02-14-2021 10:00-0500 Diastolic blood pressure 60 mm[Hg] Kingsley Latisha Other [employer] Other 02-14-2021 10:00-0500 Respiratory rate 16 /min Kingsley Latisha Other [employer] Other 02-14-2021 10:00-0500 SaO2% (BldA) [Mass fraction] 97 % Kingsley Latisha Other [employer] Other 02-14-2021 10:00-0500 Systolic blood pressure 130 mm[Hg] Kingsley Latisha Other [employer] Other 01-03-2021 10:15-0400 Body height 170.18 cm Tondra Mapus Other [employer] Other 01-03-2021 10:15-0400 Body mass index (BMI) [Ratio] 31.01 kg/m2 Tondra Mapus Other [employer] Other 01-03-2021 10:15-0400 Body weight 89.81 kg Tondra Mapus Other [employer] Other 01-03-2021 10:15-0400 Diastolic blood pressure 67 mm[Hg] Tondra Mapus Other [employer] Other 01-03-2021 10:15-0400 Respiratory rate 16 /min Tondra Mapus Other [employer] Other 01-03-2021 10:15-0400 SaO2% (BldA) [Mass fraction] 99 % Tondra Mapus Other [employer] Other 01-03-2021 10:15-0400 Systolic blood pressure 151 mm[Hg] Tondra Mapus Other [facility] [employer] Other Encounters Encounter Date Encounter Type Care Provider Facility Start: 12-12-2023 End: 12-12-2023 ambulatory [facility] Work Phone: Start: 12-12-2023 End: 12-12-2023 Patient encounter procedure [facility] Work Phone: Start: 11-12-2023 End: 11-12-2023 ambulatory KEVIN [facility] Start: 11-07-2023 End: 11-07-2023 ambulatory RON TAVERA Not Available Start: 10-17-2023 End: 10-17-2023 ambulatory [facility] Work Phone: Start: 10-17-2023 End: 10-17-2023 Patient encounter procedure [facility] Work Phone: Start: 10-07-2023 End: 10-07-2023 ambulatory [facility] [place] Start: 10-02-2023 ambulatory [facility] Start: 09-27-2023 Evaluation and management of inpatient [facility] Start: 09-27-2023 Evaluation and management of inpatient [facility] Start: 09-26-2023 Non-patient / Non-visit [facility] Work Phone: Start: 09-26-2023 Evaluation and management of inpatient [facility] Start: 09-26-2023 End: 09-28-2023 Evaluation and management of inpatient [facility] Start: 09-26-2023 Non-patient / Non-visit [facility] Physician [facility] Work Phone: Start: 09-25-2023 [facility] Start: 09-24-2023 ambulatory [facility] Start: 09-19-2023 Encounter for preprocedural cardiovascular examination KEVIN [facility] Start: 09-19-2023 ambulatory KEVIN [facility] Start: 09-09-2023 End: 09-09-2023 ambulatory [facility] [place] Start: 08-27-2023 Non-patient / [facility]-visit [facility] Work Phone: Start: 08-12-2023 End: 08-12-2023 ambulatory [facility] Work Phone: Start: 08-12-2023 End: 08-12-2023 Patient encounter procedure [facility] Work Phone: Start: 07-02-2023 End: 07-02-2023 ambulatory [facility] Work Phone: Start: 07-02-2023 End: 07-02-2023 Patient encounter procedure [facility] Work Phone: Start: 06-24-2023 Non-patient / Non-visit [facility] Work Phone: Start: 06-18-2023 End: 06-18-2023 ambulatory [facility] Work Phone: Start: 06-18-2023 End: 06-18-2023 Patient encounter procedure [facility] Work Phone: Start: 06-13-2023 Non-patient / Non-visit [facility] Work Phone: Start: 05-07-2023 End: 05-07-2023 ambulatory KEVIN [facility] Start: 05-03-2023 End: 05-03-2023 Patient encounter procedure DO Harley Crespo Work Phone: [facility] Group- Start: 04-30-2023 Telephone encounter [facility] Start: 04-30-2023 End: 04-30-2023 [facility] [employer] Other Start: 04-23-2023 End: 04-23-2023 ambulatory Arlen Kwong Other [employer] Other Start: 04-23-2023 Telephone encounter Arlen Kwong [facility] Start: 03-18-2023 End: 03-18-2023 ambulatory [facility] Start: 03-12-2023 (DM) Diabetes Arlen Kwong [facility] Start: 03-12-2023 End: 03-13-2023 ambulatory DO Harley Crespo Work Phone: [facility] [employer] Other Start: 03-12-2023 End: 03-12-2023 Discharged Recurring DO Harley Crespo Work Phone: [facility] Work Phone: Start: 03-12-2023 End: 03-12-2023 Patient encounter procedure DO Harley Crespo Work Phone: [facility] Work Phone: Start: 03-07-2023 End: 03-07-2023 ambulatory [facility] Start: 03-05-2023 End: 03-05-2023 ambulatory [facility] Start: 02-19-2023 End: 02-19-2023 [facility] Start: 02-12-2023 Telephone encounter Harley Crespo [facility] Start: 02-12-2023 End: 02-12-2023 ambulatory KEVIN [facility] [employer] Other Start: 02-07-2023 End: 02-07-2023 ambulatory Harley Crespo Other [employer] Other Start: 02-07-2023 Telephone encounter Harley Garcia [facility] Start: 02-06-2023 End: 02-06-2023 ambulatory Arlen Kwong Other [employer] Other Start: 02-06-2023 Telephone encounter Alren Shane [facility] Start: 02-01-2023 End: 02-01-2023 ambulatory LAILA [facility] Start: 01-29-2023 End: 01-29-2023 ambulatory Harley Crespo Other [employer] Other Start: 01-29-2023 Telephone encounter Harley Garcia [facility] Start: 01-25-2023 End: 01-28-2023 Evaluation and management of inpatient [facility] Start: 01-17-2023 Telephone encounter Arlen Shane [facility] Start: 01-17-2023 End: 01-17-2023 ambulatory EHAB [facility] [employer] Other Start: 01-07-2023 End: 01-07-2023 ambulatory Harley Crespo Other [employer] Other Start: 01-07-2023 Office outpatient vi sit 25 minutes Kingsley Latisha [facility] Start: 01-07-2023 Telephone encounter Harley Garcia [facility] Start: 01-04-2023 End: 01-04-2023 ambulatory Kingsley Latisha Other [employer] Other Start: 01-04-2023 Telephone encounter Kingsley Latisha [facility] Start: 01-01-2023 End: 01-01-2023 ambulatory Kingsley Latisha Other [employer] Other Start: 01-01-2023 Telephone encounter Kingsley Latisha [facility] Start: 12-31-2022 End: 12-31-2022 ambulatory Harley Crespo Other [employer] Other Start: 12-31-2022 Office outpatient vi sit 25 minutes Harley Crespo [facility] Start: 12-31-2022 Telephone encounter Harley HERRMANN [facility] Start: 12-13-2022 End: 12-13-2022 ambulatory Denita Chairez Other [employer] Other Start: 12-13-2022 Nursing evaluation o f patient and report Denita Chaire[facility] Start: 11-23-2022 End: 11-23-2022 ambulatory Tondra Mapus Other [employer] Other Start: 11-23-2022 Telephone encounter Tondra Mapus [facility] Start: 10-12-2022 End: 10-12-2022 ambulatory Tondra Mapus Other [employer] Other Start: 10-12-2022 Telephone encounter Tondra Mapus [facility] Start: 10-09-2022 End: 10-09-2022 ambulatory Harley Crespo Other [employer] Other Start: 10-09-2022 Telephone encounter Harley HERRMANN [facility] Start: 10-01-2022 End: 10-01-2022 ambulatory Harley Crespo Other [employer] Other Start: 10-01-2022 Telephone encounter Harley Crespo FP [facility] Start: 09-27-2022 End: 09-27-2022 ambulatory Kingsley Latisha Other [employer] Other Start: 09-27-2022 Telephone encounter Kingsley Latisha [facility] Start: 09-26-2022 End: 09-26-2022 ambulatory Harley Crespo Other [employer] Other Start: 09-26-2022 Telephone encounter Harley HERRMANN [facility] Start: 09-19-2022 End: 09-19-2022 ambulatory Kingsley Latisha Other [employer] Other Start: 09-19-2022 Telephone encounter Kingsley Latisha [facility] Start: 09-12-2022 End: 09-12-2022 ambulatory Harley Crespo Other [employer] Other Start: 09-12-2022 Telephone encounter Harley Cherie MONTEZ [facility] Start: 09-03-2022 End: 09-03-2022 ambulatory Harley Crespo Other [employer] Other Start: 09-03-2022 Telephone encounter Harley Crespo MONTEZ [facility] Start: 08-31-2022 End: 08-31-2022 ambulatory Harley Crespo Other [employer] Other Start: 08-31-2022 Office outpatient vi sit 25 minutes Harley Cresp[facility] Start: 08-10-2022 End: 08-10-2022 ambulatory Harley Cherie Other [employer] Other Start: 08-10-2022 Telephone encounter Harley Crespo MONTEZ [facility] Start: 08-09-2022 End: 08-10-[address] HARLEY CRESPO [facility] [employer] Other Start: 08-09-2022 Telephone encounter Kingsley Latisha [facility] Start: 07-02-2022 End: 07-02-2022 ambulatory Kingsley Latisha Other [employer] Other Start: 07-02-2022 Office outpatient vi sit 25 minutes Kingsley Latisha [facility] Start: 06-28-2022 End: 06-28-2022 ambulatory Harley Crespo Other [employer] Other Start: 06-28-2022 Patient encounter procedure Har[facility] Cresp[facility] Start: 06-26-2022 (DM) Diabetes Tondra Mapus [facility] Start: 06-26-2022 End: 06-26-2022 ambulatory Tondra Mapus Other [employer] Other Start: 06-25-2022 End: 06-26-2022 ambulatory KINGSLEY LATISHA Facility:[facility]1 Start: 06-18-2022 End: 06-19-2022 ambulatory TONDRA MAPUS Facility:[facility] Start: 06-05-2022 End: 06-06-[address] HARLEY CRESPO Facility:[facility] Start: 05-26-2022 End: 05-26-2022 ambulatory Harley Crespo Other [employer] Other Start: 05-26-2022 Telephone encounter Harley Crespo [facility] Start: 05-25-2022 End: 05-25-2022 ambulatory Tondra Mapus Other [employer] Other Start: 05-25-2022 Telephone encounter Tondra Mapus [facility] Start: 05-03-2022 End: 05-04-[address] PINKY BISHOP Facility:[facility] Start: 04-18-2022 End: 04-19-[address] PINKY BISHOP Facility:[facility] Start: 03-22-2022 End: 03-23-[address] HIGINIO FLANAGAN Facility:[facility] Start: 03-20-2022 (DM) Diabetes Tondra Mapus [facility] Start: 03-20-2022 End: 03-20-2022 ambulatory Tondra Mapus Other [employer] Other Start: 03-12-2022 End: 03-13-2022 Evaluation and management of inpatient DR PARUL CHU Facility:[facility] Start: 03-09-2022 End: 03-10-[address] SHANNON LANDIS Facility:[facility] Start: 03-02-2022 End: 03-03-[address] HARLEY CRESPO Facility:[facility] Start: 02-19-2022 End: 02-19-2022 ambulatory Tondra Mapus Other [employer] Other Start: 02-19-2022 Telephone encounter Tondra Mapus [facility] Start: 02-08-2022 End: 02-08-2022 ambulatory Tondra Mapus Other [employer] Other Start: 02-08-2022 Telephone encounter Tondra Mapus [facility] Start: 01-15-2022 End: 01-17-2022 Evaluation and management of inpatient DO Harley Crespo Work Phone: [facility] Start: 01-15-2022 End: 01-15-[address] HARLEY CRESPO Facility:[facility]1 Start: 12-18-2021 Registered Recurring DO [place] Work Phone: [facility] Start: 12-18-2021 (DM) Diabetes Tondra Mapus [facility] Start: 12-18-2021 End: 12-18-2021 ambulatory Tondra Mapus Other [employer] Other Start: 12-08-2021 End: 12-09-[address] HARLEY CRESPO Facility:[facility]1 Start: 11-30-2021 End: 12-01-2021 ambulatory KINGSLEY LATISHA Facility:[facility] Start: 11-24-2021 End: 11-25-[address] HARLEY CRESPO Facility:[facility] Start: 11-16-2021 End: 11-16-2021 ambulatory Tondra Mapus Other [employer] Other Start: 11-16-2021 Telephone encounter Tondra Mapus [facility] Start: 2021 End: 2021 ambulatory Tondra Mapus Other [employer] Other Start: 2021 Telephone encounter Tondra Mapus [facility] Start: 10-31-2021 End: 10-31-2021 ambulatory Tondra Mapus Other [employer] Other Start: 10-31-2021 Telephone encounter Tondra Mapus [facility] Start: 10-27-2021 End: 10-27-[address] [...] 07-24-2021 End: 07-24-2021 ambulatory Tondra Mapus Other [employer] Other Start: 07-24-2021 Telephone encounter Tondra Mapus [facility] Start: 07-17-2021 (DM) Diabetes Tondra Mapus [facility] Start: 07-17-2021 End: 07-17-2021 ambulatory Tondra Mapus Other [employer] Other Start: 06-19-2021 End: 06-19-2021 ambulatory Shannon Escobar Other [employer] Other Start: 06-19-2021 Telephone encounter Shannon Escobar [facility] Start: 06-06-2021 End: 06-06-2021 ambulatory Kingsley Latisha Other [employer] Other Start: 06-06-2021 Office outpatient vi sit 25 minutes Kingsley Latisha [facility] Start: 05-22-2021 End: 05-22-2021 ambulatory Tondra Mapus Other [employer] Other Start: 05-22-2021 Telephone encounter Tondra Mapus [facility] Start: 05-16-2021 End: 05-16-2021 ambulatory Tondra Mapus Other [employer] Other Start: 05-16-2021 Telephone encounter Tondra Mapus [facility] Start: 04-10-2021 (DM) Diabetes Tondra Mapus [facility] Start: 04-10-2021 End: 04-10-2021 ambulatory Tondra Mapus Other [employer] Other Start: 04-10-2021 Telephone encounter Tondra Mapus [facility] Start: 02-14-2021 End: 02-14-2021 ambulatory Kingsley Latisha Other [employer] Other Start: 02-14-2021 Patient encounter procedure Kingsley Latisha [facility] Start: 02-14-2021 Telephone encounter Tondra Mapus [facility] Start: 01-03-2021 (DM) Diabetes Tondra Mapus [facility] Start: 10-14-2018 End: 10-15-2018 Patient encounter procedure [facility] Facility:[facility] Start: 02-24-2018 End: 02-25-2018 Evaluation and management of inpatient [facility] Facility:[facility] Procedures Date Procedure Procedure Detail Performing [...] Author Start: 10-26-2023 DIABETES SCREEN DIABETES SCREEN [facility] Start: 10-17-2023 Patient referral [facility] Work Phone: Start: 01-17-2022 [facility] Start: 01-17-2022 Radionuclide myocard ial perfusion stress study NM rachel perf SPECT rest & str [facility] Start: 01-17-2022 Referral to cardiac rehabilitation program [facility] Start: 01-16-2022 Hospital admission [facility] Start: 01-15-2022 Hospital admission [facility] Start: 11-30-2021 Influenza vaccination INFLUENZA (#1) [facility] Start: 10-24-2021 End: 12-24-2021 CBC W Auto Differential panel - Blood CBC + DIFF Lab Routine Monoclonal gammopathy Expected: 10/24/2021, Expires: 12/24/2021 [facility] Work Phone: Comment on above: Expected: 10/24/2021 , Expires: 12/24/2021 Start: 04-25-2021 Adult depression screening assessment DEPRESSION SCREENING [facility] Start: 04-01-2021 ADVANCE DIRECTIVE DISCUSSION ADVANCE DIRECTIVE DISCUSSION [facility] Start: 11-21-2020 COVID-19 VACCINE (3 - Booster for Pfizer series) COVID-19 VACCINE (3 - Booster for Pfizer series) [facility] Start: 11-07-2001 SHINGRIX VACCINE (1 of 2) SHINGRIX VACCINE (1 of 2) [facility] Start: 11-07-1996 COLOGUARD (FIT-DNA) COLOGUARD (FIT-D NA) [facility] Start: 11-07-1996 Colonoscopy COLONOSCOPY [facility] Start: 11-07-1996 COLORECTAL CANCER SCREENING COLORECTAL CANCER SCREENING [facility] Start: 11-07-[address] COLONOGRAPHY [facility] Start: 11-07-1996 FECAL OCCULT BLOOD FECAL OCCULT BLOO D [facility] Start: 11-07-1996 SIGMOIDOSCOPY SIGMOIDOSCOPY [facility] Start: 11-07-1986 LIPID SCREEN LIPID SCREEN [facility] Start: 11-07-1970 Urine microalbumin profile DTAP,TDAP,TD (1 - Tdap) [facility] Start: 11-07-1969 HEPATITIS C SCREENING HEPATITIS C SC REEJOHN [facility] Start: 1950 ABDOMINAL AORTIC ANEURYSM SCREENING ABDOMINAL AORTIC ANEURYSM SCREENING [facility] Comprehensive metabo lic 1999 panel - Serum or Plasma [facility] Patient Education [facility] Work Phone: Patient referral [facility] Work Phone: Renal function 1999 panel - Serum or Plasma [facility] Immunizations Immunization Date Immunization Notes Care Provider Poli patel 12-12-2023 influenza, high dose seasonal, preservative-free [facility] 12-13-2022 influenza, high dose seasonal, preservative-free Denita Chairez Other [facility] [employer] Other 12-13-2022 influenza virus vaccine, unspecified formulation DO Harley Crespo Work Phone: [facility] 12-15-2021 influenza virus vaccine, unspecified formulation DO Harley Crespo Work Phone: [facility] 12-15-2021 influenza, high dose seasonal, preservative-free Harley Crespo Other [facility] [employer] Other 02-21-2021 COVID-19 mRNA, Comirnaty (Pfizer) DO Harley Ball Work Phone: [facility] 06-21-2020 COVID-19 Vaccine Pfi zer - Documentation Purposes Only Tondra Mapus Other [facility] 05-30-2020 COVID-19 Vaccine Pfi zer - Documentation Purposes Only Tondra Mapus Other [facility] 01-17-2018 pneumococcal polysaccharide vaccine, 23 valent Abdon Walker MD Work Phone: [facility] 01-17-2018 Seasonal trivalent influenza vaccine, adjuvanted, preservative free Abdon Walker MD Work Phone: [facility] 01-16-2017 influenza, high dose seasonal, preservative-free Abdon Walker MD Work Phone: [facility] 11-30-2016 influenza, injectabl e, quadrivalent, preservative free Abdon Walker MD Work Phone: [facility] 11-14-2016 pneumococcal conjuga te vaccine, 13 valent Abdon Walker MD Work Phone: [facility] 04-02-2016 pneumococcal polysaccharide vaccine, 23 valent Arlen Kwong Other [facility] 01-23-2012 influenza, seasonal, injectable Abdon Walker MD Work Phone: [facility] 12-13-2010 influenza, seasonal, injectable Abdon Walker MD Work Phone: [facility] 01-27-2009 novel [id number], preservative-free, injectable Abdon Walker MD Work Phone: [facility] 01-19-2008 influenza virus vaccine, whole virus Abdon Walker MD Work Phone: [facility] Payers Date Payer Category Payer Unknown MMO MMO MEDICARE SUPPLEMENT [id number] 2019-Present [phone] [address] [place] [address] Indemnity [id number] 2017 Self-pay [id number] 2017 Unknown [id number] 2017 Unknown [id number] 2016 Medicare MEDICARE MEDICAR E A AND B [id number] 2016-Present [phone] [address] [address] [place] [address] Medicare [id number] 1959 Medicare [id number] 1959 Unknown [id number] [id number] 1951 Unknown [id number] 2.16.840.1.465627.3.579.2.647 1951 Unknown [id number] 2.16.840.1.807229.3.579.2.647 1951 Unknown [id number] 2.16.840.1.997677.3.579.2.593 1951 Unknown [id number] 2.16.840.1.631572.3.579.2.593 1951 Unknown [id number] 2.16.840.1.193181.3.579.2.593 1951 Unknown [id number] 2.16.840.1.701719.3.579.2.593 1951 Unknown [id number] 2.16.840.1.049006.3.579.2.593 1951 Unknown [id number] 2.16.840.1.223109.3.579.2.593 1951 Unknown [id number] 2.16.840.1.164541.3.579.2.593 1951 Unknown [id number] 2.16.840.1.657500.3.579.2.593 1951 Unknown [id number] 2.16.840.1.714295.3.579.2.593 1951 Unknown [id number] 2.16.840.1.101509.3.579.2.593 1951 Unknown [id number] 2.16.840.1.403441.3.579.2.593 1951 Unknown [id number] 2.16.840.1.460987.3.579.2.593 1951 Unknown [id number] 2.16.840.1.817588.3.579.2.593 1951 Unknown [id number] 2.16.840.1.325079.3.579.2.593 1951 Unknown [id number] 2.16.840.1.432742.3.579.2.593 1951 Unknown [id number] 2.16.840.1.143622.3.579.2.593 1951 Unknown [id number] 2.16.840.1.596720.3.579.2.593 1951 Unknown [id number] 2.16.840.1.312449.3.579.2.593 1951 Unknown [id number] 2.16.840.1.277774.3.579.2.1259 Unknown [id number] Unknown [id number] 2.16.840.1.121214.3.579.2.531 Unknown HCAP/HFA/FAP Active [id number] Social History Date Type Detail Facility Unknown if ever smoked [employer] Other Sex Assigned At [employer] Other Start: 09-29-2021 End: 07-02-2023 Tobacco smoking status Ex-smoker (finding) [facility] Tobacco smoking status Never [facility] Luis Enrique Start: 07-23-2018 Tobacco use and exposure Smokeless tobacco non-user [facility] Start: 10-25-2020 Alcohol intake Ex-drinker (finding) [facility] Start: 1950 Sex Assigned At Not on file [facility] Start: 1950 Sex Assigned At Male F [facility] Medical Equipment Procedure Code Equipment Code Equipment [...] Facility 01-17-2022 Functional status Patient at Baseline [facility] Work Phone: 09-29-2021 Functional Status N/A [facility] Mental Status Date Assessment Result Facility 01-17-2022 Cognitive function Cognitive Sta t[place] Patient at Baseline [facility] Work Phone: Clinical Notes 01-03-2021 to 10-07-2023 Note Date & Type Note Facility 10-07-2023 Note [facility] Cardiology Clinic Note Chief Complaint: Patient here for follow up [facility] for NSTEMI. 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 Patient reports compliance with his medications and that he is not requiring diuretics. Initial evaluation at the outside hospital showed elevated high-sensitivity troponins and he was sent to [facility] for an evaluation by cardiology. Patient was [...] artery stenosis, Coronary artery disease, Diabetes mellitus ([facility]), Hyperlipidemia, Hypertension, PVD (peripheral vascular disease) (CMS/[facility]), and Third degree heart block ([facility]). Surgical History He has a past [...] BMI 27.88 kg (more content not included)... [facility] 09-28-2023 Note ------ Attestation signed by Kevin [...] Heidy Dee MD, 40 mg at 09/27/23 9234 Insert peripheral IV, , , Once AND Saline lock IV, , , Once AND sodium chloride flush 10 mL, 10 mL, intravenous, q8h PRN, Catalina Marin MD traMADol (Ultram) tablet 50 mg, 50 mg, oral, q6h PRN, Jesus Alexander, 50 mg at 09/27/23 7693 Objective: Patient Vitals for the past 24 [...] Value Ventricular Rate 78 Atrial Rate 78 VA Interval 160 QRS DURATION 144 QT Interval 444 QTC CALCULATION(BAZETT) 506 P Fouke 49 R-Fouke -41 T Wave Fouke 106 Impression Atrial-sensed ventricular-paced rhythm Abnormal ECG When compared with ECG of 26-SEP-2023 18:59, Vent. rate has decreased BY 3 BPM Lab Results Component Value Date TROPONINI 3.05 (HH) 09/27/2023 Complete Echo (TTE) w/wo Imaging Agent, Strain, 3D, Bubble Study Result Date: 09/27/2023 1 1 [facility] Heart Station [address] [place] [address] [phone] (fax) Echocardiogram-[facility] Name: LANI LIZAMA Study Date: 09/27/2023 07:42 AM B/P: 118 mmHg/57 mmHg (more content not included)... [facility] 09-28-2023 Note Hospital Medicine Discharge Summary Final Discharge Diagnosis: #NSTEMI #chronic HFrEF NYHA class I #CAD #HTN #Diabetes #Hx bradycardia Admission Diagnosis: NSTEMI (non-ST elevated myocardial infarction) (CMS/[facility]) [I21.4] Hospital course: 72-year-old male with past medical history significant for CAD status post CABG x 5 vessels and history of 7 PCI's who presented to the hospital due to chest pain. The patient does have HFrEF with an EF of 15 to 20% status post BiV SECOND SHIFT SUPERVISOR-D. Patient reports compliance with his medications and that he is not requiring diuretics. Initial evaluation at the outside hospital showed elevated high-sensitivity troponins and he was sent to [facility] for an evaluation by cardiology. Patient was [...] from last 7 days Lab Units 09/28/23 8444 09/27/23 0359 WBC AUTO 10*3/uL 7.88 7.95 [...] Dee MD Hospital Medicine 09/28/2023 11:15 AM [facility] 09-27-2023 Note Patient: Lani Quintanilla ed Procedure Information Date/Time: 09/27/23 1300 Procedure: Coronary angiography Location: [facility] TECHNICAL BUSINESS ANALYST 3 / [facility] (Cath) Providers: Luisito Foreman MD [...] with fellow and attending. Additional Equipment Requests [facility] 09-27-2023 Note Adult Nutrition Asse ssment: Name: Lani Lizama Date: 1950 Date of Visit: 09/27/23 Admission Dx: NSTEMI (non-ST elevated myocardial infarction) ([facility]) [I21.4] Reason for assessment: high risk -wound Information obtained from: patient, family, medical record, and nursing -son at bedside Past Medical History: Diagnosis Date Carotid artery stenosis Coronary artery disease Diabetes mellitus ([facility]) Hyperlipidemia Hypertension PVD (peripheral vascular disease) ([facility]) Third degree heart block ([facility]) CABG x5, stents, EF 30%, HF [...] Question: Reason for NPO: Answer: Operation/Procedure 09/26/23 3653 Percent Meals Eaten (%): 100 (09/26/23 1851 : Carolina Bragg RN) Nutrition Risk: Low Malnutrition Assessment: Patient at risk for malnutrition according to hospital criteria, but does not meet the clinical characteristics per the Academy of Nutrition and Dietetics, and the [place] [employer] of Enteral and Parenteral Nutrition to [...] compliance w/ MNT Contact the dietitian via [employer] chat 8A-4P Saturday through Saturday or call extension [phone]. For s & s, the dietitian can be reached via pager [phone] from 9A-3P. Unable to respond to [employer] messages on Saturday & . [facility] 09-27-2023 Note ------ Attestation signed by Heidy [...] days THE HOSPITALIST TEAM PREFERS TO USE [employer] CHAT FOR COMMUNICATION 7AM-7PM. IF I DO NOT RESPOND WITHIN 15 MINUTES, PLEASE PAGE ME/CALL THROUGH THE CERAMIC RESTORER. FROM 7PM-7AM, PLEASE PAGE [phone](COVR) Code Status: Full Code Barriers to Discharge: [...] disease, 3rd degree heart block (s/p BiV SECOND SHIFT SUPERVISOR-D) that presented to [facility]SH w/ c/o chest pain that radiated to left arm and jaw. Pain was described as centrally-located and pressure-like, and unrelieved by Nitroglycerin x3. Patient started on nitroglycerin drip which provided relief. Initial tropin was unremarkable, but repeat was elevated (2962). He was started on heparin and transferred to [facility]. Today, patient is examined at bedside, family [...] Principal Problem: NSTEMI (non-ST elevated myocardial infarction) ([facility]) Assessment and Plan #NSTEMI - Supplemental oxygen NC - DAPT (aspirin 81 mg, daily; and Plavix 75 mg, daily) - Metoprolol Succinate XL (150 mg, daily) - Rosuvastatin (40 mg, nightly) #HFrEF - Echo pending #CAD - Angiogram planned today #HTN #Diabetes - Insulin sliding scale - Goal blood sugar 140-180 #Hx bradycardia - s/p SECOND SHIFT SUPERVISOR-D Wounds: Wound 09/26/23 Other (comment) Toe (Comment [...] mg, oral, Daily (more content not included)... [facility] 09-09-2023 Note [facility] Cardiology [...] disease) (CMS/HCC), and Third degree heart block (CMS/[facility]). Surgical History He has a past [...] PSYCH: appropriate mood, affect, and judgement. Investigations: Echocardiogram-[facility] Name: LANI LIZAMA Study Date: 01/25/2023 12:56 PM B/P: 138 mmHg/71 mmHg HR: Date of : 1950 Location: [facility] Height: 67 in. Age: 72 year(s) Patient Room : 3141 Weight: 171 lb. Gender: Male Patient Status: InPt BSA: 1.89 m2 Indication: Chest Pain Examination: Echocardiogram (Complete), Lumason Contrast Image Quality: Poor Patient Consent: Procedure explained to patient s p @ c 3 Conclusions Left Ventricle: The left ventricle is normal size. Global left connie (more content not included)... [facility] 05-07-2023 Note [place] [facility] Consul t Note Reason for visit: Complete heart block on event monitor, HFrEF 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%, atrial tachycardia 05/07/23 Patient is s/p BiV ICD. he feels much better and believes that he is gone from 4/0 to 7/10 with SECOND SHIFT SUPERVISOR. patient has got good device threshold. he [...] and hypertension. He was [place] [facility] [place]. Had inpatient stress test and heart cath. Denies SOB but still having chest pain and has taken nitroglycerin a few times for relief. Had CT chest last week s/p discharge. Cardiac catheterization revealed patent bypass grafts and worsening [place] vessel disease. Medications were adjusted. I had [...] 75 mg ta (more content not included)... [facility] 01-30-2024 Evaluation note Encounter Date Diagnosis Assessment Notes Apr, Chronic HFrEF (heart failure with reduced ejection fraction) (ICD-10 - I50.22) [employer] Other 01-30-2024 NoteUT Cardiology Consult Note Reason [...] and hypertension. He was recently admitted [place] [facility] [place]. Had inpatient stress test and heart cath. Denies SOB but still having chest pain and has taken nitroglycerin a few times for relief. Had CT chest last week s/p discharge. Cardiac catheterization revealed patent bypass grafts and worsening [place] vessel disease. Medications were adjusted. I had [...] route. insulin detemir (Levemi (more content not included)...[facility]01-30-2024 NotePatient here for follow up echo. He is doing very well, as chest pain and palpitations have subsided. Taking bumex prn now and hasn't been swelling much. Denies SOB and lightheadedness. Review of Systems Musculoskeletal: Positive for arthritis, back pain, joint pain and myalgias. All other systems reviewed and are negative.[facility] 03-18-2023 NoteUT Cardiology Consult Note [...] and hypertension. He was recently admitted [place] [facility] [place]. Had inpatient stress test and heart cath. Denies SOB but still having chest pain and has taken nitroglycerin a few times for relief. Had CT chest last week s/p discharge. Cardiac catheterization revealed patent bypass grafts and worsening [place] vessel disease. Medications were adjusted. I had [...] morning and at bedtim (more content not included)...[facility]12-18-2023 NotePatient here for 2 [address] follow up per [address] Bishop. Metoprolol was increased to 100mg to decrease atrial tachycardia. Still gets random chest pain and palpitations. Lightheadedness has been better and has resolved. Denies SOB. Review of Systems Cardiovascular: Positive for chest pain and palpitations. Musculoskeletal: Positive for arthritis, back pain, joint pain and myalgias. All other systems reviewed and are negative.[facility] 03-12-2023 Evaluation note* Encounter Date Diagnosis Assessment [...] hypertension material was printed on diony. Mar, care home current use of insulin (ICD-10 - Z79.4) Mar, Hyperlipidemia (ICD-10 - E78.5) High cholesterol material was printed 05/2022 ldl 69- on statin. Mar, BMI 27.0-27.9,adult (ICD-10 - Z68.27) Eating healthy: tips to make it easier material was printed [employer] [facility] Chief Complaint: Patient here for follow up. Carotid US was done yesterday at [facility]. Says his HR has been elevated lately, around 119. Had his device interrogated a few days ago. Still has to take nitroglycerin at times for chest pain. HPI: Lani Lizama is a 72 y.o. male being seen in post hospital follow up Hospital course: And admitted to the hospital on 01/25 as a direct transfer from [facility], With worsening chest pain for [...] disease) (CMS/HCC), and Third degree heart block (CMS/[facility]). Surgical History He has a past [...] Disp: 180 tablet, Rfl: (more content not included)...[facility]11-21-2023 NotePatient seen for wound check [...] 4-6 weeks. 5. No driving for 1 month.[facility]11-14-2023 NoteBiV- ICD UPGRADE & RV LEAD EXTRACTION PROCEDURE NOTE DATE OF PROCEDURE: 02/12/2023 PERFORMING PHYSICIAN: Dr. Kevin Arteaga DINING SERVICES MANAGER: Dr Jamie Dupree CONSENT: Patient LOCATION: EP Lab PROCEDURE PERFORMED: 1. Implantation of Biventricular ICD ([employer]). 2. Explantation of previously implanted pacemaker generator ([employer]). 3. RV pacing lead extraction. 4. [...] catheterization revealed patent bypass grafts and worsening [place] vessel disease. Event monitor revealed presence of [...] proceeded to place an LV lead. The Howell sheath was advanced, and EZ steer was used to cannulate the CS. There was difficulty in cannulating the CS. So I used an inner cannula and wire technique and this was still challenging. I then removed the Johana system and used a [employer] CS sheath over a 9F short sheath. [...] stable. COMPLICATIONS: None. IM (more content not included)...[facility]11-14-2023 NotePatient: Lani Lizama Procedure Information Date/Time: 02/12/23 1100 Procedure: Biventricular ICD upgrade - Upgrade PPM to Bi-V- possibly to AICD Location: [facility] TECHNICAL BUSINESS ANALYST 1 / [facility] (Cath) Providers: Kevin Arteaga MD Clinical information reviewed: Allergies Meds Physical Exam Airway Mallampati: III Cardiovascular - normal exam Dental Pulmonary - normal exam Abdominal - normal exam Anesthesia Plan ASA 3 other (Conscious sedation) Anesthetic plan and risks discussed with patient. Use of blood products discussed with patient who consented to blood products. Plan discussed with attending. [facility] [id number] Evaluation note* Encounter Date Diagnosis Assessment Notes Treatment Notes Treatment Clinical Notes Jan, Chronic HFrEF (heart failure with reduced ejection fraction) (ICD-10 - I50.22) [employer] Other 11-03-2023 NoteUT Cardiology Consult Note Reason [...] and hypertension. He was recently admitted [place] [facility] [place]. Had inpatient stress test and heart cath. Denies SOB but still having chest pain and has taken nitroglycerin a few times for relief. Had CT chest last week s/p discharge. Cardiac catheterization revealed patent bypass grafts and worsening [place] vessel disease. Medications were adjusted. I had [...] artery stenosis Coronary artery disease Diabetes mellitus ([facility]/HCC) Hyperlipidemia Hypertension PVD (peripheral vascular disease) ([facility]) Third degree heart block ([facility]) PSH: Past Surgical History: Procedure Laterality [...] tablet Take 1 tablet (more content not included)...[facility]10-30-2023 NoteOccupational Therapy Occupational Therapy Evaluation Patient Name: Lani Lizama : 1950 Today's Date: 01/28/2023 Time In: 1404 Time Out: 1444 Lani Lizama is a 72 y.o. male with Hx CAD s/p 4v CABG and multiple past stents to VG to OM branch. Last LHC 01/20 at [facility] found patent bypass grafts. 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 Hme meds: ASA, Plavix, Coreg, Jardiance, Imdur 30, Lisinopril 2.5, Lovasatatin 40mg, protonix. Pt and son do not recall any other statins or reaction to statins. 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) Prior IADLs IADL History Homemaking Responsibilities: Yes [...] taking off regular lo (more content not included)...[facility]10-30-2023 NoteHospital Medicine Discharge Summary Final Discharge Diagnosis: NSTEMI (non-ST elevated myocardial infarction) (CMS/HCC) Non-ischemic cardiomyopathy with EF 10% Admission Diagnosis: NSTEMI (non-ST elevated myocardial infarction) (CMS/HCC) [I21.4] Hospital course: And admitted to the hospital on 01/25 as a direct transfer from [facility], With worsening chest pain for [...] Medications These medications were sent to [facility] [address] [place] [address] [address] [place] [address], [facility] [address] dapagliflozin propanediol 10 mg isosorbide mononitrate ER [...] 10*3/uL 141* 163 Chemistry: (more content not included)...[facility]10-30-[address] Arteaga is planning upgrade to BI-V ICD on as outptUn[facility]-2023 NoteUTP CARDIOLOGY INPATIENT PROGRESS NOTE [...] MENJIVAR graft. There is (more content not included)...[facility]10-29-2023 [facility] Medicine Daily Progress Note - 01/27/2023 12:00 PM; Room: [address] [place] [address] Admission: 01/25/2023 12:05 PM; Length of stay: 2 days THE HOSPITALIST TEAM PREFERS TO USE [employer] CHAT FOR COMMUNICATION 7AM-7PM. IF I DO NOT RESPOND WITHIN 15 MINUTES, PLEASE PAGE ME/CALL THROUGH THE CERAMIC RESTORER. FROM 7PM-7AM, PLEASE PAGE [phone](COVR) Code Status: Full Code Discharge Destination: home [...] Principal Problem: NSTEMI (non-ST elevated myocardial infarction) ([facility]) Assessment and Plan NSTEMI coronary artery [...] for: PREALBUMIN, TSH, T3FREE, FREET4, CORTISOL, FEV1, [id number], DLCO, RVSP, HDL, LDL No results found for: [id number], IRON, TIBC, C3, C4, HARISH, CANCA, ASO, PSA, CEA, CA125, CA199, AFP, CA153 Imaging Cardiac catheterization PROCEDURE PHYSICIAN: Luisito Foreman MD . Indications: Lani Lizama is a 72 y.o. male with prior complex cardiac history including bypass surgery and multiple stenting procedures in the past. Last cardiac catheterization in December 2021 at an outside institution showed patent bypass grafts. (more content not included)... [facility]10-29-2023 NoteUTP CARDIOLOGY INPATIENT PROGRESS NOTE [...] Value Ventricular Rate 91 Atrial Rate 91 VA Interval 162 QRS DURATION 180 QT Interval 416 QTC CALCULATION(BAZETT) 511 P Fouke 52 R-Fouke -41 T Wave Fouke 109 Impression Atrial-sensed ventricular-paced rhythm Abnormal ECG [...] Due to suboptimal i (more content not included)...[facility]10[facility]28[facility] - 01/26/2023 12:37 PM; Room: [address] [place] [address] Admission: 01/25/2023 12:05 PM; Length of stay: 1 days THE HOSPITALIST TEAM PREFERS TO USE [employer] CHAT FOR COMMUNICATION 7AM-7PM. IF I DO NOT RESPOND WITHIN 15 MINUTES, PLEASE PAGE ME/CALL THROUGH THE CERAMIC RESTORER. FROM 7PM-7AM, PLEASE PAGE [phone](COVR) Code Status: Full Code Discharge Destination: home [...] Principal Problem: NSTEMI (non-ST elevated myocardial infarction) ([facility]) Assessment and Plan NSTEMI coronary artery [...] for: PREALBUMIN, TSH, T3FREE, FREET4, CORTISOL, FEV1, PFB6ZCX, DLCO, RVSP, HDL, LDL No results found for: [id number], IRON, TIBC, C3, C4, HARISH, CANCA, ASO, [...] grafts. He presented to the [facility] with symptoms of worsening chest pain over the past 2 months. He was admitted and had rising cardiac troponin. He was referred (more content not included)...[facility]10-28-2023 NoteAdult Nutrition Assessment: Name: Lani Lizama Date: 1950 Date of Visit: 01/26/23 Admission Dx: NSTEMI (non-ST elevated myocardial infarction) ([facility]) [I21.4] Reason for assessment: high risk (HF) Information obtained from: patient, medical record, and nursing Past Medical History: Diagnosis Date Carotid artery stenosis Coronary artery disease Diabetes mellitus ([facility]) Hyperlipidemia Hypertension PVD (peripheral vascular disease) ([facility]) Third degree heart block ([facility]) Current Medications: ALPRAZolam, 0.5 mg, oral, [...] compliance w/ MNT Contact the dietitian via [employer] chat 8A-4P Saturday through Saturday or call extension [phone]. For weekends & holidays, the dietitian can be reached via pager [phone] from 9A-3P. Unable to respond to [employer] chat messages on Saturday & s.[facility]10-28-2023 Note Attestation signed by Marry [...] Teaching Physician's Revisions: none Marry Avendano MD [place] [facility] Subjective Underwent heart cath yesterday. No [...] upgrade -optimize GDMT; consider Entresto -Transition to [facility] on discharge Mickie Plaza MD [employer] [facility]10-27-2023 NotePatient: Lani Lizama Procedure Information Date/Time: 01/25/23 1900 Procedures: Coronary angiography Coronary bypass graft study Location: [facility] TECHNICAL BUSINESS ANALYST 3 / [facility] (Cath) Providers: Luisito Foreman MD [...] products. Plan discussed with attending. [facility] Note Hospital Medicine History and Physical 01/25/2023 10:53 AM THE HOSPITALIST TEAM PREFERS TO USE [employer] CHAT FOR COMMUNICATION 7AM-7PM. IF I DO NOT RESPOND WITHIN 15 MINUTES, PLEASE PAGE ME/CALL THROUGH THE CERAMIC RESTORER. FROM 7PM-7AM, PLEASE PAGE [phone](COVR) Chief Complaint No chief complaint on file. History of Present Illness Lani Lizama is an 72 y.o. male who came from [facility] with NSTEMI and troponin of 7000. Patient has a history of CABG and 7 stents. For the last few weeks he has had intermittent chest pain that NTG does relieve. He did have a syncopal episode 3 weeks ago[address] He saw Dr. Bishop on 01/17 and his lisinopril was decreased. Yesterday he had severe chest pain and went to [facility]. Patient was admitted to [facility] and initial troponin was negative but then [...] edema associated with type 1 diabetes mellitus ([facility]) 10/12/2022 Gastroesophageal reflux disease 03/02/2022 Increased immunoglobulin 03/02/2022 Irritable bowel syndrome 03/02/2022 Mixed hyperlipidemia 03/02/2022 Nausea 03/02/2022 Overweight with body mass index (BMI) 25.0-29.9 03/02/2022 Right lower quadrant abdominal pain 03/02/2022 Spondylosis of lumbar spine 03/02/2022 Stage 3 chronic kidney disease ([facility]) 03/02/2022 Stenosis of abdominal aorta 03/02/2022 History of coronary artery bypass surgery 11/16/2019 Monoclonal gammopathy 07/28/2018 Type 2 diabetes mellitus without complication [place] 06/03/2012 Coronary atherosclerosis 09/19/2011 Type 1 diabetes mellitus ([facility]) 09/19/2011 Essential hypertension 09/19/2011 AV block, 3rd degree ([facility]) 03/21/2022 Assessment and Plan NSTEMI - transfer from [facility] - will continue heparin drip - cardiology has been consulted and plan to proceed with cardiac catherization today Syncope - patient did have his PM interrogated in [place] [facility] Acute renal failure on CKD 3b - in review of chart it looks like his Cr is 1.5 - 1.9 - 2.23 today at [facility] - will gently hydrate 0.9NS @ 50 ml/hr Coronary atherosclerosis - CATH 09/2018 bypass grafts patent; mild ISR CATH 12/2021. 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 s/p COACH BUILDER/STENT 11/2016 Essential hypertension - on norvasc Hyperlipidemia [...] during this hospital stay (more content not included)...[facility]10-19-2023 [facility] Note Chief Complaint: [...] artery stenosis, Coronary artery disease, Diabetes mellitus ([facility]), Hyperlipidemia, Hypertension, PVD (peripheral vascular disease) ([facility]), and Third degree heart block (CMS/HCC). [...] in the morning., Disp: , Rfl: HYDROcodone-acetaminophen (Satin) 5-325 mg tablet, TAKE 1 TABLET BY [...] 2+ bilaterally. No rash/sk (more content not included)...[facility] 01-07-2023 Evaluation note* Encounter Date [...] Continue statins. Monitor LFTs and lipid profile. [employer] Other 10-06-2023 Evaluation note* Encounter Date Diagnosis Assessment Notes Treatment Notes Treatment Clinical Notes Dec, Ground glass opacity present on imaging of lung (ICD-10 - R91.8) CT: RUL, RML - 12/2022Dec, Pulmonary nodule (ICD-10 - R91.1) CT: 7mm RML nodule - 12/2022 [employer] Other 10-03-2023 Evaluation note* Encounter Date Diagnosis Assessment Notes Treatment Notes Treatment Clinical Notes Dec, Stage 3b chronic kidney disease (ICD-10 - N18.32) [employer] Other 10-02-2023 Evaluation note* Encounter Date Diagnosis [...] risk for cerebrovascular and cardiovascular disease. Dec, care home current use of insulin (ICD-10 - Z79.4) [...] be contributing - must discuss w/ Cardiology [employer] Other 07-03-2023 Evaluation note* Encounter Date Diagnosis Assessment Notes Treatment Notes Treatment Clinical Notes Sep, ASHD (arteriosclerotic heart disease) (ICD-10 - I25.10) [employer] Other 06-21-2023 Evaluation note* Encounter Date Diagnosis Assessment Notes Treatment Notes Treatment Clinical Notes Aug, ASHD (arteriosclerotic heart disease) (ICD-10 - I25.10) [employer] Other 06-02-2023 Evaluation note* Encounter Date Diagnosis [...] inserts to prevent callus formation.Fall precautions. Aug, care home (current) use of insulin (ICD-10 - Z79.4) [employer] Other 05-11-2023 Evaluation note* Encounter Date Diagnosis Assessment Notes Treatment Notes Treatment Clinical Notes July, Ground glass opacity present on imaging of lung (ICD-10 - R91.8) CT: RML,RUL infiltrate - 12/2021, CT: RML,RUL improved - 03/2022 CT: RML, RUL, GGO improved - 07/2022 [employer] Other 04-03-2023 Evaluation note* Encounter Date Diagnosis [...] D and PTH. Advised low phosphorus diet. [employer] Other 03-30-2023 Evaluation note* Encounter Date Diagnosis [...] are reviewed at the office visit. 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 Blood glucose levels stable. According to [employer] cgm download 06/13/2022- 3: Average glucose 190. [...] hypertension material was printed on diony. May, care home current use of insulin (ICD-10 - Z79.4) 28 Mar, 2023 Hyperlipidemia (ICD-10 - E78.5) High cholesterol material was printed 05/2022 ldl 69- on statin. 28 May, 2022 BMI 27.0-27.9,adult (ICD-10 - Z68.27) Eating healthy: tips to make it easier material was printed [employer] Other 02-25-2023 Evaluation note* Encounter Date Diagnosis Assessment Notes Treatment Notes Treatment Clinical Notes May, Abnormality of lung on CXR (ICD-10 - R91.8) [employer] Other 12-20-2022 Evaluation note* Encounter Date Diagnosis [...] 2. Blood glucose levels stable. According to [employer] cgm download 03/07/2022-03/20/20 22: Average glucose 144. Above 250-0%, >180- 15%, 70-180-85%, <70-0%, <54-0%. CV 24.3%. Reviewed download with pt, no incidence of hypoglcyemia noted. Glucose rise between 12-6pm. D/t current shortage of ozempic, recommend pt reduce dose to 0.5mg once weekly until shipment recieved from [facility], then increase to 1mg once weekly. [...] hypertension material was printed on diony. Mar, care home current use of insulin (ICD-10 - Z79.4) Mar, Hyperlipidemia (ICD-10 - E78.5) High cholesterol material was printed 06/2021 ldl 48- on statin. Mar, BMI 26.0-26.9,adult (ICD-10 - Z68.26) Eating healthy: tips to make it easier material was printed 9 pound weight loss from last visit, continue with weight loss efforts [employer] Other 11-10-2022 Evaluation note* Encounter Date Diagnosis Assessment Notes Treatment Notes Treatment Clinical Notes Jan, Diabetes mellitus with chronic kidney disease (ICD-10 - E11.22) [facility] [employer] Other 10-19-2022 Discharge summary Author Gagan Shahid [facility] January 17, 2022 3:02pm Note Date/Time January 17, 2022 3 :02pm [facility] [address] [place] [address] Discharge Summary Signed Patient: Lani Lizama MR#: [id number] : 1950 Acct:[id number] Age/Sex: 71 / M Adm Date: 2 Loc: Room: [address] [place] [address]: Gagan Shahid DO Copies to: [...] thought this to be 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 Cardiac catheterization was undergone on 01/16/2022 showing [...] levels as before. DISCHARGE INSTRUCTIONS FOR CARDIAC TECHNICAL BUSINESS ANALYST PHONE NUMBER OF YOUR PHYSICIAN: [phone] PROCEDURE: Heart Cath The following instructions have [...] cold, numb, blue or white, call the boat oar maker immediately. 4. ACTIVITY: You are advised to [...] bottle, follow the instructions on the bottle. [facility] is not responsible for incorrect [...] signed by Gagan Shahid DO> 01/17/22 [address] [facility] Work Phone: 1([phone]) 235-478910-19-2022 Progress note Author Luis Alfredo Borges [facility] January 17, 2022 11:47am Note Date/Time January 17, 2022 1 1:47am [facility] [address] [place] [address] Cardiology Progress Note Signed Patient: Lani Lizama MR#: [id number] : 1950 Acct:[id number] Age/Sex: 71 / M Adm Date: 2 Loc: Room: [address] [place] [address] Type: ADM IN Attending Dr: Gagan Shahid [...] is also notable worsening of the patient's [place] occlusive coronaryheart disease particularly in the microcirculation [...] daily 3. Patient does have a primary boat oar maker near his [place] in [place]. We willschedule him 1 follow-up visit in [facility] for left wrist check and also for counseling and reinforcement/referral to phase 2 monitored cardiac rehabilitation which the patient desires to perform in [place]. 4. Instructed the patient that he can [...] by Luis Alfredo Borges MD> 01/17/22 [address] [facility] Work Phone: 1(651) 887-772210-18-2022 Progress note Author Gagan Shahid [facility] January 16, 2022 4:09pm Note Date/Time January 16, 2022 4 :09pm [facility] [address] [place] [address] Hospitalist Progress Note Signed Patient: Lani Lizama MR#: [id number] : 1950 Acct:[id number] Age/Sex: 71 / M Adm Date: 2 Loc: Room: [address] [place] [address] Type: ADM IN Attending Dr: Gagan Shahid [...] <Electronically signed by Gagan Shahid DO> 01/16/22 160 [facility] Work Phone: 1([phone]) 864-399010-18-2022 [facility] Consult note Author Luis Alfredo Borges [facility] January 16, 2022 10:24am Note Date/Time January 16, 2022 1 0:24am [facility] [address] [place] [address] Cardiology Consult Note Signed Patient: Lani Lizama MR#: [id number] : 1950 Acct:[id number] Age/Sex: 71 / M Adm Date: 2 Loc: Room: [address] [place] [address] Type: ADM IN Attending Dr: Gagan Shahid [...] well as history of PCI done here [facility] per Dr. Saldaña in May [...] EMS and was taken to [facility] emergency department. There the patient [...] Lymph # (Auto) 1.0 1.6 (1.00-4.8) x10E3/uL Leon # (Auto) 0.4 0.8 (0.0-0.8) x10E3/uL Eos [...] nonspecific abnormality, ST segment, and/or T wave [place], pacemaker, normal Normal tracing: no change compared [...] by Luis Alfredo Borges MD> 01/16/[address] [facility] Work Phone: 1(708) 176-430210-17-2022 History and physical note Author Gagan Shahid [facility] January 15, 2022 6:56pm Note Date/Time January 15, 2022 6 :02pm [facility] [address] [place] [address] Hospitalist H&P Signed Patient: Lani Lizama MR#: [id number] : 1950 Acct:[id number] Age/Sex: 71 / M Adm Date: 2 Loc: Room: [address] [place] [address] Type: ADM IN Attending Dr: Gagan Shahid [...] need for cardiovascular evaluation he was [facility] further management and cardiology [...] % (Auto) 13.8 % (.) 01/15/22 15:00 Leon % (Auto) 6.1 % (.) 01/15/22 15:00 Eos % (Auto) 0.9 % (.) 01/15/22 15:00 Baso % (Auto) 0.5 % (.) 01/15/22 15:00 Neut # (Auto) 5.6 x10E3/uL (1.8-7.7) 01/15/22 15:00 Lymph # (Auto) 1.0 x10E3/uL (1.00-4.8) 01/15/22 15:00 Leon # (Auto) 0.4 x10E3/uL (0.0-0.8) 01/15/22 15:00 [...] <Electronically signed by Gagan Shahid, > 01/15/22 [address] [facility] Work Phone: 1(511) 583-472609-19-2022 Evaluation note* Encounter Date Diagnosis Assessment Notes [...] Blood glucose levels above improved. According to [employer] cgm download 12/05/2021- 2: Average glucose 119. [...] hypertension material was printed on diony. Nov, care home current use of insulin (ICD-10 - Z79.4) Nov, Hyperlipidemia (ICD-10 - E78.5) High cholesterol material was printed 06/2021 ldl 48- on statin. Nov, BMI 27.0-27.9,adult (ICD-10 - Z68.27) Eating healthy: tips to make it easier material was printed 22 pound weight loss from last visit, continue with weight loss efforts [employer] Other 07-22-2022 Miscellaneous Notes* Telephone Encounter - Vee Day - 10/20/2021 9:42 AM EDT New CBC order. Vee Day [facility] NoteChief Complaint consultation for cholelithiasis HPI Staff [...] RLQ ASHD (arteriosclerotic heart disease) Atheroscler of [place] artery of both legs with intermit claudication BMI 28.0-28.9,adult BPH associated with nocturia Cholelithiasis Controlled diabetes mellitus with diabetic polyneuropathy, with long-term current use of insulin Diabetic retinopathy Elevated serum immunoglobulin free light chains GERD (gastroesophageal reflux disease) IBS (irritable bowel syndrome) Lumbar spondylosis MGUS (monoclonal gammopathy of unknown significance) Mixed hyperlipidemia Nausea Obesi (more content not included)...[facility]: Result Comment: Electronically Signed By: FRANKIE LEMUS, Gagan Edgar.oniel\Date and Time Signed: 10/17/21 12:19 [id number] Evaluation note* Encounter Date Diagnosis Assessment Notes [...] Blood glucose levels above improved. According to [employer] cgm download 07/04/2021-07/17/2021 : Average glucose 146. [...] hypertension material was printed on diony. 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 If symptomatic i.e. light headed notify sooner [employer] Other 03-21-2022 Evaluation note* Encounter Date Diagnosis Assessment Notes Treatment Notes Treatment Clinical Notes May, Gastro-esophageal reflux disease with esophagitis, without bleeding (ICD-10 - K21.00) [employer] Other 03-08-2022 Evaluation note* Encounter Date Diagnosis [...] His MBD parameters are within the goal. [employer] Other 02-21-2022 Evaluation note* Encounter Date Diagnosis Assessment Notes Treatment Notes Treatment Clinical Notes May, Diabetes mellitus with chronic kidney disease (ICD-10 - E11.22) [employer] Other 01-10-2022 Evaluation note* Encounter Date Diagnosis Assessment Notes Treatment Notes Treatment Clinical Notes Apr, Type 2 diabetes mellitus with hyperglycemia (ICD-10 - E11.65) [employer] Other 01-10-2022 Evaluation note* Encounter Date Diagnosis [...] Blood glucose levels above improved. According to [employer] cgm download 03/28/2021-04/10/19 22: Average glucose 167. [...] hypertension material was printed on diony. 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 [employer] Other 10-05-2021 Evaluation note* Encounter Date Diagnosis [...] above target with increased variability. According to [employer] cgm download 12/07/2020-01/03/2021: Average glucose 135. Above [...] hypertension material was printed on diony. 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 Notified boat oar maker Dr. Velazquez. Pt has apt on Saturday next week. [employer] Other Chief complaint+Reason for visit Narrative* Chief Complaint 4 month follow up Reason for Visit BMI 28.0-28.9,adult Dietary counseling and surveillance HTN (hypertension) Chronic HFrEF (heart failure with reduced ejection fraction) Chronic kidney disease [id number] HTN (hypertension) Hypercholesterolemia Ischemic cardiomyopathy Pulmonary nodule Type 2 diabetes mellitus with hyperglycemia [facility] Work Phone: Evaluation + Plan note No data available for this section General Surgery [place] Evaluation noteNo InformationNortJefferson Health Northeast [employer] Other Evaluation note* Diagnosis Monoclonal gammopathy- Primary Monoclonal paraproteinemia documented in this encounter [facility]* Diagnosis Onset Date Resolution Status Non-ST elevation myocardial infarction (NSTEMI), initial care episode acute [facility] Work Phone: Evaluation noteNo assessment information available [facility] Work Phone: Evaluation note* Diagnosis Onset Date Resolution Status BMI 26.0-26.9,adult acute Dietary counseling and surveillance acute DM2 (diabetes mellitus, type 2) acute HLD (hyperlipidemia) acute HTN (hypertension) acute [facility] Work Phone: Evaluation note* Diagnosis Onset Date Resolution Status BMI 26.0-26.9,adult acute Dietary counseling and surveillance acute DM2 (diabetes mellitus, type 2) acute HLD (hyperlipidemia) acute HTN (hypertension) acute Chronic HFrEF (heart failure with reduced ejection fraction) acute CKD (chronic kidney disease) stage 3, GFR 30-59 ml/min acute HLD (hyperlipidemia) acute [id number] acute Secondary hyperparathyroidism acute Type 2 diabetes 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 acute [facility] Work Phone: Evaluation note* Diagnosis Onset Date Resolution Status Dietary counseling and surveillance acute HTN (hypertension) acute Chronic HFrEF (heart failure with reduced ejection fraction) acute CKD (chronic kidney disease) stage 3, GFR 30-59 ml/min acute [id number] acute Secondary hyperparathyroidism acute Type 2 diabetes 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 acute Chronic HFrEF (heart failure with reduced ejection fraction) acute Chronic kidney disease acute HTN (hypertension) acute Hypercholesterolemia acute Ischemic cardiomyopathy acut e Pulmonary nodule acute Type 2 diabetes mellitus with hyperglycemia acute Medicare annual wellness visit, subsequent noneactive Screening PSA (prostate specific antigen) noneactive [facility] Work Phone: evaluation note* Diagnosis Onset Date [...] counseling and surveillance acute HTN (hypertension) acute [facility] Work Phone: Evaluation note* Diagnosis Onset Date Resolution Status BMI 28.0-28.9,adult acute Dietary counseling and surveillance acute HTN (hypertension) acute Chronic HFrEF (heart failure with reduced ejection fraction) acute Chronic kidney disease acute [id number] acute HTN (hypertension) acute Hypercholesterolemia acute Ischemic cardiomyopathy acut e Pulmonary nodule acute Type 2 diabetes mellitus with hyperglycemia acute [facility] Work Phone: history general Narrative - Reported* [...] 11-25-16 Hospitalization History HEART STENT PLACED 03-20 [employer] Other Hisnhce general Narrative - ReportedNoStudyEgg Other Hisceow general Narrative - Reported* Type Description Date [...] 11-25-16 Hospitalization History HEART STENT PLACED 03-20 [employer] Other history general Narrative - Reported* Type [...] 11-25-16 Hospitalization History HEART STENT PLACED 03-20 [employer] Other HisA Fourth Act general Narrative - Reported* Type Description Date [...] 11-25-16 Hospitalization History HEART STENT PLACED 03-20 [employer] Other DataGravitynuko general Narrative - Reported* Type Description Date [...] PLACED 03-20 18 Hospitalization History SEE ABOVE [employer] Other History general Narrative - ReportedNoSyandus Other History general Narrative - Reported* Type [...] PLACED 03-20 18 Hospitalization History SEE ABOVE [employer] Other Hisljye general Narrative - Reported* Type Description Date [...] STENT PLACED 03-20 Hospitalization History SEE ABOVE [employer] Other History general Narrative - Reported* Type [...] STENT PLACED 03-20 Hospitalization History SEE ABOVE [employer] Other Hislqeg general Narrative - Reported* Type Description Date [...] History GGO and Pulmonary nodules Medical History [place] 01/21 Medical History Defibrilator 02/21 Surgical History [...] 03-20 Hospitalization History SEE ABOVE Hospitalization History [place] 01/21 [employer] Other Hospital Discharge instructions No data available for this section General Surgery [facility] Discharge instructions Additional Instructions Monitor glucose levels as before. DISCHARGE INSTRUCTIONS FOR CARDIAC TECHNICAL BUSINESS ANALYST PHONE NUMBER OF YOUR PHYSICIAN: [phone] PROCEDURE: Heart Cath The following instructions have [...] cold, numb, blue or white, call the boat oar maker immediately. 4. ACTIVITY: You are advised to [...] bottle, follow the instructions on the bottle. [facility] is not responsible for incorrect prescription information provided by the patient during their visit. Do not stop your medications without consulting your health care provider. Please take the list with you to your next doctor's appointment. 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 DATE CREATED AUTHOR AUTHOR'S ORGANIZ ATION 10/20/2021 [facility] DATE CREATED AUTHOR AUTHOR'S ORGANIZ ATION 10/25/2021 [facility] DATE CREATED AUTHOR AUTHOR'S ORGANIZ ATION 08/13/2022 [facility] [place] [facility] DATE CREATED AUTHOR AUTHOR'S ORGANIZ ATION 05/16/2023 [facility] DATE CREATED AUTHOR AUTHOR'S ORGANIZ ATION 11/10/2023 [facility] EPIC DATE CREATED AUTHOR AUTHOR'S ORGANIZ ATION 11/14/2023 [facility] REASON FOR VISIT (unrecogniz ed [...] Team Status: Inactive Member Role Status Anna Cerspo DO Primary Care Provide r, Attending Provider [...] July 02, 2023 End: July 02, 2023 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 Specialty Start Date End Date Harley Crespo DO [address] [place] [address] PCP - General Internal Medicine 07/18/18 Team Status: Inactive Member Role Status Dates Harley Crespo DO Primary Care Provider Active Gagan Shahid DO Admit Provider, Attending Provider Active Team Status: Active Member Role Status Dates Harley Crespo DO Primary Care Provider Active Ryan Garrett APRN DIGITAL MARKETING SPECIALIST-C Active OUSMANE MilliganC Active Arlen Kwong APRN Attending Provider Active Team Status: Inactive Member Role Status Dates Arlen Kwong APRN Attending Provider Active Start: March 12, 2023 End: March 12, 2023 Team Status: Inactive Member Role Status Dates Harley Crespo DO Primary Care Provider Active Start: March 12, 2023 End: March 12, 2023 Ryan Garrett APRN DIGITAL MARKETING SPECIALIST-C Active Sta rt: March 12, 2023 End: [...] or prosecute any alcohol or drug abuse patient.[facility] Goals (unrecognized section and content) Goals may [...] BE BASED ON THE PRIMARY CLINICAL RECORDS. [facility]. provides no warranty or guarantee of the accuracy or completeness of information in this document.
== END 2023-12-31 09:48 | disposition home or self-care (01) ==
LOC: VC 09:47
PROVIDERS: PCP Internal Medicine; Visit Provider Internal Medicine
DX: E11.51 Type 2 diabetes mellitus with diabetic peripheral angiopathy without gangrene (principal)
CPT/HCPCS: 93923

== ENCOUNTER 2024-02-12 20:30 | Emergency (ER) | payer MEDICARE, OTHER, SELFPAY ==
[2024-02-12] VITALS (31 sets, daily range): BP systolic 137–171; BP diastolic 70–96; PULSE 86–170; TEMP 36.6; O2SAT 92–100; BMI 27.4
[2024-02-12] MEDS: ASPIRIN 81 MG TAB.CHEW 324 MG PO (20:34)
[2024-02-12] MEDS: NITROGLYCERIN 0.4 MG BOTTLE SL (20:34)
--- NOTE | 2024-02-12 20:34 | ECG_ITS ---
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
--- NOTE | 2024-02-12 20:35 | XR_ITS ---
[address] [address] Patient Name: LANI LIZAMA MRN: [id number] date: 1950 Sex: M Assigned Patient Location: ED.MAIN Current Patient Location: ER Accession/Order Number: [id number] Exam Date: 02/12/2024 21:20 Report Date: 02/12/2024 22:02 At the request of: HEMALATHA SAVAGE Procedure: XR chest 1V EXAM: XR chest 1V HISTORY: CP COMPARISON: 09/26/2023 FINDINGS/IMPRESSION: 1. Pulmonary vascular congestion and interstitial edema. 2. No pneumothorax. No pleural effusion. 3. Heart size and mediastinal contours are normal 4. No acute osseous abnormality. Left pacemaker/ICD with intact leads. Midline sternal wires are intact. 5. Upper abdominal bowel gas pattern is nonspecific. Electronically authenticated by: JEREMIAH SYLVESTER Date: 02/12/2024 22:02
--- NOTE | 2024-02-12 20:36 | ED.CHESTPAI1 ---
HPI - Chest Pain General Chief Complaint: Chest Pain Stated Complaint: CHEST PAIN Time Seen by Provider: 02/12/24 20:34 History of Present Illness HPI narrative: 73-year-old male presents to the emergency department for chest pain. It started about 5 PM and he has taken 6 nitroglycerin since then. He states the nitroglycerin helps but then the pain comes back and it feels like when he has had heart attacks in the past. The pain is substernal and does not seem to radiate to his arms or neck. No fever cough back pain or shortness of breath. He has an extensive heart history including bypass surgery and 8 cardiac stents. Related Data Home Medications ?Medication ?Instructions ?Recorded ?Confirmed alprazolam 0.5 mg tablet (Xanax) 0.5 mg PO BID 01/24/23 09/26/23 aspirin 81 mg tablet,delayed 81 mg PO DAILY 01/24/23 09/26/23 release (Adult Aspirin Regimen) bumetanide 0.5 mg tablet 0.5 mg PO .MORNING 01/24/23 09/26/23 carvedilol 25 mg tablet 12.5 mg PO Q12H 01/24/23 09/26/23 cetirizine 10 mg capsule (All Day 10 mg PO DAILY 01/24/23 09/26/23 Allergy (cetirizine)) cholecalciferol (vitamin D3) 25 25 mcg PO DAILY 01/24/23 09/26/23 mcg (1,000 unit) tablet (Vitamin D3) clopidogrel 75 mg tablet 75 mg PO .HS 01/24/23 09/26/23 docusate sodium 100 mg capsule 100 mg PO DAILY 01/24/23 09/26/23 (Colace) empagliflozin 10 mg tablet 10 mg PO QAM 01/24/23 09/26/23 (Jardiance) insulin aspart U-100 100 unit/mL 1 sliding scale dose subcut 01/24/23 09/26/23 (3 mL) subcutaneous pen (Novolog USEASDIRECTD FlexPen U-100 Insulin aspart) insulin detemir U-100 100 unit/mL 1 unit subcut DAILY 01/24/23 09/26/23 (3 mL) subcutaneous pen (Levemir FlexPen) isosorbide mononitrate 60 mg 60 mg PO BID 01/24/23 09/26/23 tablet,extended release 24 hr lisinopril 2.5 mg tablet 2.5 mg PO DAILY 01/24/23 09/26/23 lovastatin 40 mg tablet 40 mg PO .PM 01/24/23 09/26/23 multivitamin with iron-mineral 1 tab PO DAILY 01/24/23 09/26/23 nitroglycerin 0.4 mg sublingual 0.4 mg sublingual Q5M PRN chest 01/24/23 09/26/23 tablet pain pantoprazole 40 mg tablet,delayed 40 mg PO DAILY 01/24/23 01/24/23 release potassium chloride 10 mEq 10 meq PO DAILY 01/24/23 09/26/23 tablet,extended release semaglutide 1 mg/dose (2 mg/1.5 1 mg subcut QWEEK 01/24/23 09/26/23 mL) subcutaneous pen injector (Ozempic) Allergies Allergy/AdvReac Type Severity Reaction Status Date / Time No Known Drug Allergies Allergy Verified 02/12/24 20:36 Review of Systems ROS Narrative A ten point review of systems is negative except as noted above. [facility] Medical History (Updated 02/12/24 @ 22:29 by Garry Lagos MD) AMI (acute myocardial infarction) ?I21.9 - Acute myocardial infarction, unspecified (ICD-10) Pacemaker ?Z95.0 - Presence of cardiac pacemaker (ICD-10) Anxiety ?F41.9 - Anxiety disorder, unspecified (ICD-10) GERD (gastroesophageal reflux disease) ?K21.9 - Gastro-esophageal reflux disease without esophagitis (ICD-10) Hypertension ?I10 - Essential (primary) hypertension (ICD-10) Diabetes ?E11.9 - Type 2 diabetes mellitus without complications (ICD-10) Surgical History (Updated 01/24/23 @ 19:49 by Cammy Adler) History of heart artery stent ?Z95.5 - Presence of coronary angioplasty implant and graft (ICD-10) Social History (Updated 01/24/23 @ 20:00 by Cammy Adler) Within the past year, how often did you have a drink containing alcohol: never Within the past year, how often did you have six or more drinks on one occasion: never Score interpretation: A score less than 4 is consistent with normal alcohol consumption. Smoking status: Former smoker Non-prescribed substance use: denies use Previous occupational history: works 1 day a week Highest level of school completed/degree received: high school graduate Are you now , , , , never or living with a partner: In a typical week, how many times do you talk on the telephone with family, friends, or neighbors: 3 or more times per week How often do you get together with friends or relatives: once per week How often do you attend denominational or advent services: 1-3 times per year Little interest or pleasure in doing things: not at all Feeling down, depressed, or hopeless: not at all Feel stressed/tense/nervous/anxious/difficulty sleeping: to some extent Life stressors: other Life stressor details: getting older Exam Narrative Exam Narrative: Nurses note and vital signs reviewed and patient is not hypoxic. General: The patient appears in no apparent distress. Patient is resting comfortably on cart. Skin: Warm, dry, no pallor noted. There is no rash noted. Head: Normocephalic, atraumatic Eye: Normal conjunctiva, no drainage Ears, Nose, Mouth, and Throat: oral mucosa is moist. Nares patent. Cardiovascular: Regular Rate and Rhythm Respiratory: Patient is in no distress, no accessory muscle use, lungs are clear to auscultation, no wheezing, rales or rhonchi Back: non-tender GI: Soft and nontender Musculoskeletal: The patient has no evidence of calf tenderness, no pitting edema, symmetrical pulses noted bilaterally Neurological: A&O, normal speech Psychiatric: Cooperative Constitutional Vital Signs, click to edit/add: Last Vital Signs Temp 97.8 F 02/12/24 20:32 Pulse 93 H 02/12/24 22:00 Resp 15 02/12/24 22:00 BP 151/77 H 02/12/24 22:00 Pulse Ox 93 L 02/12/24 22:00 O2 Del Method Room Air 02/12/24 21:13 Course Vital Signs Vital signs: Vital Signs Temperature 97.8 F 02/12/24 20:32 Pulse Rate 99 H 02/12/24 20:32 Respiratory Rate 20 02/12/24 20:32 Blood Pressure 171/96 H 02/12/24 20:32 Pulse Oximetry 100 02/12/24 20:32 Oxygen Delivery Method Room Air 02/12/24 20:32 Temperature 97.8 F 02/12/24 20:32 Pulse Rate 93 H 02/12/24 22:00 Respiratory Rate 15 02/12/24 22:00 Blood Pressure 151/77 H 02/12/24 22:00 Pulse Oximetry 93 L 02/12/24 22:00 Oxygen Delivery Method Room Air 02/12/24 21:13 MDM - Chest Pain MDM Narrative Medical decision making narrative: The patient with chest pain and his initial troponin was normal at 23 but the repeat is 85. He is on a nitroglycerin drip as well as heparin drip and he received IV morphine and aspirin orally. I have spoken to Dr. Galindo at [facility] and the patient is excepted there and will be transferred there. He is stable and agreeable for transfer. Findings are discussed with the patient and his son. Differential Diagnosis Differential diagnosis: Likely pneumothorax, unstable angina pectoris, atypical chest pain, st elevation myocardial infarction and chest pain Lab Data Attestation: I reviewed the patient's lab results. Labs: Lab Results 02/12/24 02/12/24 Range/Units 20:55 21:55 WBC 8.0 (4.0-11.0) 10^3/uL RBC 4.75 (4.70-6.10) 10^6/uL Hgb 14.4 (14.0-18.0) g/dL Hct 42.1 (42.0-54.0) % MCV 88.6 (80.0-94.0) fL MCH 30.3 (25.9-34.0) pg MCHC 34.2 (29.9-35.2) g/dL RDW 13.1 (11.0-15.0) % Plt Count 208 (150-450) 10^3/uL MPV 9.6 (9.5-13.5) fL Neut % (Auto) 55.6 (43.0-75.0) % Lymph % (Auto) 30.5 (20.5-60.0) % [place] % (Auto) 9.5 (1.7-12.0) % Eos % (Auto) 2.9 (0.9-7.0) % Baso % (Auto) 1.0 (0.2-2.0) % Neut # (Auto) 4.5 (1.4-6.5) 10^3/uL Lymph # (Auto) 2.5 (1.2-3.8) 10^3/uL [place] # (Auto) 0.8 (0.3-0.8) 10^3/uL Eos # (Auto) 0.2 (0.0-0.7) 10^3/uL Baso # (Auto) 0.1 (0.0-0.1) 10^3/uL Abs Immat Gran (auto) 0.04 H (0.00-0.03) 10^3/uL Imm/Tot Granulo (auto) 0.5 (0.0-0.5) % Sodium 141 (136-145) mmol/L Potassium 3.9 (3.5-5.1) mmol/L Chloride 106 (98-107) mmol/L Carbon Dioxide 22.9 (21.0-32.0) mmol/L Anion Gap 16.0 BUN 21.0 H (7.0-18.0) mg/dL Creatinine 1.97 H (0.70-1.30) mg/dL Est GFR ( Amer) 41 L (>=60 mL/min/1.73m^2) Est GFR (Non-Af Amer) 34 L (>=60 mL/min/1.73m^2) BUN/Creatinine Ratio 10.7 Glucose 236 H (74-106) mg/dL Calcium 9.4 (8.5-10.1) mg/dL Troponin I High Sens 23.3 85.0 H* (4.0-76.1) pg/mL ECG Data Attestation: I personally reviewed and interpreted this ECG as follows: (EKG on my interpretation shows rhythm without ST segment elevation.) Heart Score History: Highly Suspicious ECG: Normal Age: >65 years Risk Factors: >3 Risk Factors/ HX of CAD:2 Troponin: <3X Normal Limit Total Heart Score Recommendations & Risks:: 7 Critical Care Time Critical Care Time Critical Care Time: Yes Total Critical Care Time: 35 Attestation: Due to the high probability of sudden and clinically significant deterioration in the patient's condition he/she required the highest level of my preparedness to intervene urgently I provided critical care time including documentation time, medication orders and management, reevaluation, vital sign assessment, ordering and reviewing of lab tests, ordering and reviewing of x-ray studies, and admission orders. Aggregate critical care time is 35 minutes including only time during which I was engaged in work directly related to his/her care and did not include time spent treating other patients simultaneously. Discharge Plan Discharge Chief Complaint: Chest Pain Clinical Impression: Non-ST elevated myocardial infarction (non-STEMI) Patient Disposition: [facility] Time of Disposition Decision: 22:28 Discharge Location: [facility] [facility] Condition: Fair Mode of Transportation: EMS
[2024-02-12] MEDS: NITROGLYCERIN IN 5 % DEXTROSE 50 MG/250 ML INFUS..BTL IV (20:56)
[2024-02-12] MEDS: MORPHINE SULFATE 4 MG/ML VIAL IV (21:00)
[2024-02-12 21:10] LABS: Basophils Absolute Auto 0.1 10^3/uL (0.0-0.1); Eosinophils Absolute Auto 0.2 10^3/uL (0.0-0.7); Eosinophils Percent Auto 2.9 % (0.9-7.0); Hematocrit 42.1 % (42.0-54.0); Hemoglobin 14.4 g/dL (14.0-18.0); Immature Granulocytes Abs Auto 0.04 10^3/uL (0.00-0.03); Immature Granulocytes Pct Auto 0.5 % (0.0-0.5); Lymphocytes Absolute Auto 2.5 10^3/uL (1.2-3.8); Lymphocytes Percent Auto 30.5 % (20.5-60.0); Mean Corpuscular HGB Conc 34.2 g/dL (29.9-35.2); Mean Corpuscular Hemoglobin 30.3 pg (25.9-34.0); Mean Corpuscular Volume 88.6 fL (80.0-94.0); Mean Platelet Volume 9.6 fL (9.5-13.5); Monocytes Absolute Auto 0.8 10^3/uL (0.3-0.8); Monocytes Percent Auto 9.5 % (1.7-12.0); Neutrophils Absolute Auto 4.5 10^3/uL (1.4-6.5); Neutrophils Percent Auto 55.6 % (43.0-75.0); Platelet Count 208 10^3/uL (150-450); Red Blood Count 4.75 10^6/uL (4.70-6.10); Red Cell Distribution Width 13.1 % (11.0-15.0)
[2024-02-12 21:17] LABS: BUN Creatinine Ratio 10.7; Calcium 9.4 mg/dL (8.5-10.1); Carbon Dioxide 22.9 mmol/L (21.0-32.0); Chloride 106 mmol/L (98-107); Estimated GFR (African America 41 (>=60 mL/min/1.73m^2); Estimated GFR (Non-African Ame 34 (>=60 mL/min/1.73m^2); Glucose 236 mg/dL (74-106); Sodium 141 mmol/L (136-145)
[2024-02-12 21:18] LABS: Potassium 3.9 mmol/L (3.5-5.1)
[2024-02-12 21:25] LABS: Troponin I High Sensitivity 23.3 pg/mL (4.0-76.1)
[2024-02-12 22:43] LABS: INR 1.06; Partial Thromboplastin Time 28.4 sec (22.3-36.2); Prothrombin Time 11.2 sec (9.0-11.6)
[2024-02-12] MEDS: HEPARIN SODIUM,PORCINE/D5W 25,000 UNIT/500 ML IV.SOLN 19.051 UNIT IV (23:09)
[2024-02-12] MEDS: HEPARIN SODIUM (PORCINE) 5,000 UNIT/ML VIAL 3200 UNIT IV (23:09)
[2024-02-13] VITALS: BP 133/76; PULSE 90; O2SAT 94
[2024-02-13 00:10] VITALS: PULSE 83; O2SAT 93
[2024-02-13 00:15] VITALS: BP 125/71; PULSE 85; O2SAT 93
[2024-02-13 00:20] VITALS: PULSE 84; O2SAT 93
[2024-02-13 00:30] VITALS: BP 122/70; PULSE 83; O2SAT 95
== END 2024-02-13 01:20 | disposition short-term general hospital (02) ==
PROVIDERS: Emergency Provider Emergency Medicine; PCP Internal Medicine
DX: I21.4 Non-ST elevation (NSTEMI) myocardial infarction (principal); Z95.1 Presence of aortocoronary bypass graft; Z87.891 Personal history of nicotine dependence
CPT/HCPCS: 36415; 71045; 80048; 84484; 85025; 85610; 85730; 93005; 96374; 96375; 99285; J1644; J2270; J2305

== ENCOUNTER 2024-05-05 08:36 | Outpatient (OUT) | payer MEDICARE, OTHER, SELFPAY ==
--- OUTSIDE RECORDS SUMMARY | 2024-05-05 08:59 | XMS_ITS | CCD ---
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 Name Role Phone ELTAHAWY, EHAB A Admitting Unavailable ELTAHAWY, EHAB A Attending Unavailable HARLEY CRESPO Referring Unavailable HARLEY CRESPO Primary Care Unavailable ELTAHAWY, NETOAB A Surgeon Unavailable SD Procedure Practitioner Unavailab le ELTAHAWY, EHAB A Admitting Unavailable ELTAHAWJo, PINKY A Attending Unavailable HARLEY CRESPO Referring Unavailable HARLEY CRESPO Primary Care Unavailable Arlen Kwong Unavailable Kingsley Good Unavailable Shannon Escobar Unavailable HARLEY CRESPO Primary Care Physician Harley Crespo DO Primary Care Provider DO Harley Crespo Primary Care Provider [phone] JULY Kwong Attending Provider [phone] DO Gagan Shahid Admit Provider DO Gagan [...] GORDILLO Consulting Unavailable AURELIO, GAGAN Consulting Unavailable Mihaela Denita Unavailable DO Harley Crespo Primary Care Provider JULY Kwong Attending Provider Arlen Kwong Attending Unavailable Arlen Kwong Admitting Unavailable Harley Crespo Primary Care Unavailable Harley Crespo MD Primary Care Provider KENNETH TAVERA Attending Unavailable LIANG, KENNETH Mota Attending Unavailable LIANG, KENNETH Mota Attending Unavailable JENNI, KEVIN Referring Unavailable KATKO, HEMALATHA Referring Unavailable HORANI, DEJUAN Admitting Unavailable SELLERS, ARAMIS Attending Unavailable MOUKARBEL, LUISITO Referring Unavailable HORANI, DEJUAN Admitting Unavailable NESTOR, HEIDY Attending Unavailable JENNI, KEVIN Referring Unavailable JENNI, KEVIN Referring Unavailable JENNI, KEVIN Referring Unavailable JENNI, KEVIN Referring Unavailable JENNI, KEVIN Referring Unavailable JENNI, KEVIN Referring Unavailable BARAZI, LAILA Attending Unavailable ELTAHAWY, PINKY Attending Unavailable ELTAHAWY, EH Attending Unavailable JENNI, KEVIN Referring Unavailable JENNI, KEVIN Referring Unavailable JENNI, KEVIN Referring Unavailable CRISTOPHER, EMEKA Referring Unavailable JENNI, KEVIN Referring Unavailable JENNI, KEVIN Referring Unavailable JENNI, KEVIN Referring Unavailable YOST, YFN Referring Unavailable AMERICO, BONAVENTURE Referring Unavailable AMERICO, BONAVENTURE Referring Unavailable JENNI, KEVIN Attending Unavailable HORANI, DEJUAN Referring Unavailable JENNI, KEVIN Attending Unavailable JENNI, KEVIN Referring Unavailable CRISTOPHER, EMEKA Referring Unavailable CRISTOPHER, EMEKA Referring Unavailable JENNI, KEVIN Referring Unavailable CRISTOPHER, EMEKA Referring Unavailable CRISTOPHER, EMEKA Referring Unavailable HORANI, DEJUAN Referring Unavailable MOUKARBEL, LUISITO Referring Unavailable JENNI, KEVIN Referring Unavailable CRISTOPHER, EMEKA Referring Unavailable Allergies Allergy Classification Reported Allergen(s) Allergy Type Date of Onset Reaction(s) Facility (1 source) 72501,00; Translations: [Unknown] Propensity to adverse reactions (disorder) 9 [facility] Medications Current Medications Medication Drug Class(es) [...] 4 MG/3ML 1mg Subcutaneous once weekly Active acetaminophen 325 mg / HYDROcodone bitartrate 5 mg oral tablet (6 sources) Opioid Agonist Start: 08-14-2022 take 1 tablet by mouth every four to six hours as needed for pain HYDROcodone-acetaminophen (Wilson) 5-325 MG tablet TAKE 1 TABLET BY MOUTH EVERY 4 TO 6 HOURS NEEDED FOR PAIN 08/14/2022 Active ALPRAZolam 0.5 mg oral tablet (20 sources) Benzodiazepine Start: 06-22-2020 End: 02-09-2024 take 1 tablet by mouth three times daily as needed for anxiety Alprazolam 0.5 mg tablet Active 0.5 MG PO Three times daily as needed for anxiety 90 February 09, 2024 8:29pm Comment on above: Take 0.5 mg by mouth at bedtime as maya spivey amLODIPine 10 mg oral tablet (20 sources) Dihydropyridine Calcium Channel Jason Start: 07-14-2022 take 1 tablet by mouth in the morning amLODIPine (Norvasc) 10 MG tablet Take 10 mg by mouth in the morning. as directed. 07/14/2022 Active Start: 09-07-2021 take 1 tablet by bhavik th once daily amLODIPine 10 mg Tab 10 mg = 1 tab(s), Oral, Daily, Refills(s) 0 Start Date: 09/07/21 Status: Ordered Start: 06-22-2020 End: 06-18-2023 take 2 tablets by mouth once daily Amlodipine 5 mg Tablet Discontinued 10 MG PO Daily June 21, 2020 11:00pm June 18, 2023 10:01am Start: 06-22-2020 End: 06-18-2023 take 10 mg [...] Date: 09/07/21 Status: Ordered Start: 06-22-2020 take 1 tablet by mouth once da veronique Aspirin 81 mg Tablet Active 81 MG PO Daily June 21, 2020 11:00pm take 1 tablet by mouth once rg y aspirin 81 MG chewable tablet Chew 1 tablet every day by oral route. Active Comment on above: Aspirin Active 81 MG PO Daily June 22, 2020 4:21am atorvastatin 80 mg oral tablet (6 sources) HMG-CoA Reductase Inhibitor atorvastatin (Lipito r) 80 MG tablet 1 (one) time each day at the same time. Active cholecalciferol 0.025 mg oral capsule (17 sources) Vitamin D Start: 07-02-19 take 1 capsule by mouth once daily Cholecalciferol (Vitamin D3) 25 mcg (1,000 unit) capsule Active 25 MCG PO Daily July 01, 2023 11:00pm take 1 capsule by mouth in the m orning cholecalciferol (Vitamin D-3) 25 MCG (1000 UT) capsule Take 1,000 Units by mouth in the morning. Active take 1 tablet by bhavik th every twenty-four hours Vitamin D 25 MCG (1000 UT) 1 tablet Oral ly Once a day Active Comment on above: Take 1,000 Units by mouth. clopidogrel 75 mg oral tablet (20 sources) [id number] Platelet Inhibitor Start: 10-17-2023 take 1 tablet by mouth once daily Clopidogrel 75 mg tablet Active 75 MG PO Daily October 17, 2023 9:06am Start: 06-18-2023 End: 10-17-2023 take 1 tablet by mouth once daily Clopidogrel 75 mg tablet Discontinued 0 .ROUTE .COMPLEX 90 June 18, 2023 3:03pm October 17, 2023 9:10am TAKE 1 TABLET BY MOUTH EVERY DAY Start: 01-15-2022 End: 06-18-2023 take 1 tablet by mouth once daily Clopidogrel 75 mg Tablet Discontinued 75 MG PO Daily January 14, 2022 11:00pm June 18, 2023 3:03pm Start: 09-07-2021 take 1 tablet by bhavik th once daily Plavix 75 mg Tab 75 mg = 1 tab(s), Oral, Daily, Refills(s) 0 Start Date: 09/07/21 Status: Ordered Start: 07-11-2020 End: 07-13-2020 take 1 tablet by mouth once daily Clopidogrel 75 mg Tablet Discontinued 75 MG PO Daily July 10, 2020 11:00pm July 13, 2020 3:14pm Comment on above: Take 75 mg by mouth once daily. flash glucose sensor (FreeStyle Morris 2 Sensor) (2 sources) Start: 01-23-2024 flash glucose sensor (FreeStyle Morris 2 Sensor) Active .Route January 22, 2024 11:00pm Start: 01-23-2024 flash glucose sensor (FreeStyle Morris 2 Sensor) Active .Route January 23, 2024 12:00am Insulin Aspart U-100 (Novolo g Flexpen U-100 Insulin) 100 unit/mL (3 mL) insulin pen (20 sources) Start: 10-17-2023 Insulin Aspart U-100 (Novolog Flexpen U-100 Insulin) 100 unit/mL (3 mL) insulin pen Active 0 SUBCUT .COMPLEX October 17, 2023 9:56am 6-8-10-12 units according to meal size ac [...] Discontinued 0 SUBCUT .COMPLEX October 17, 2023 9:07am October 17, 2023 9:56am 12 units according to meal size; 4-7 [...] SUBCUT Three times daily June 18, 2023 10:02am June 18, 2023 11:13am 5 units at times depending on blood sugar Start: 06-18-2023 End: 06-18-2023 inject 5 [IU] [...] insulin pen Discontinued 0 SUBCUT .COMPLEX June 17, 2023 11:00pm October 17, 2023 9:10am 6-8-10-12 units according to meal size; 4 units for snack. Corrective scale 1:20 ac, tid (HS >200 1/2 dose) Subcutaneous ac, hs; (expect up to 40 units/day) Start: 06-18-2023 End: 10-17-2023 inject 4 [IU] [...] ac, hs; (expect up to 40 units/day) insulin aspart, human 100 un t/ml injectable solution (20 sources) Insulin Analog Insulin Aspart 1 00 UNIT/ML solution Inject under the skin. Active inject 4 [IU] by sub cutaneous injection once daily at mealtime NovoLOG FlexPen [...] 20 units Subcutaneous qam Mar, Active Insulin Degludec (Tresiba Flextouch U-100) 100 unit/mL (3 mL) insulin pen (1 source) Start: 04-30-2024 Insulin Deglud ec (Tresiba Flextouch U-100) 100 unit/mL (3 mL) insulin pen Active 14 UNIT SUBCUT Every morning April 30, 2024 12:00am 3 ml insulin glargine 100 unt/ml pen injector (6 sources) Insulin Analog insulin glargine (Lantus SoloStar) 100 UNIT/ML pen Subcutaneous for 90 Active Humulin N (13 sources) Start: 09-07-2021 inject 15 [IU] by [...] Not-Taking Comment on above: Inject subcutaneousl y. insulin lispro (HumaLOG) 100 UNIT/ML injection (6 sources) insulin lispro (HumaLOG) 100 UNIT/ML injection Subcutaneous Active 24 hr isosorbide mononitrate 60 mg extended release oral tablet (20 sources) Nitrate Vasodilator Start: 01-18-20 End: 08-12-19 take 1 tablet by mouth twice daily, then take 1 tablet by mouth every twenty-four hours Isosorbide Mononitrate 60 mg tablet extended release 24 hr Active 60 MG PO Twice daily August 12, 2023 7:43am Start: 06-22-2020 End: 01-17-2022 take 1 tablet by mouth once daily, then take 1 tablet by mouth every twenty-four hours Isosorbide Mononitrate 60 mg Tablet Extended Release 24 Hr Discontinued 60 MG PO Daily June 21, [...] bid (titrate up to 40 units/day) Active Liraglutide (Victoza 3-Michelet) 0.6 mg/0.1 mL (18 mg/3 mL) pen injector (1 source) Start: 04-30-19 inject 0.6 mg by subcutaneous injection once daily, then inject 1.8 mg by subcutaneous injection once daily Liraglutide (Victoza 3-Michelet) 0.6 mg/0.1 mL (18 mg/3 mL) pen injector Active 0 SUBCUT .COMPLEX April 30, 2024 12:00am inject 0.6mg subcutaneously once daily x 7 days; then 1.2mg daily, not to exceed 1.8mg/day subcut loratadine 10 mg oral tablet (20 sources) Start: 01-16-20 take 1 tablet by mouth once daily Loratadine 10 mg Tablet Active 10 MG PO Daily January 14, 2022 11:00pm loratadine 10 mg cap Take by mouth. 0 Active Comment on above: Take by mouth. lovastatin 40 mg oral tablet (20 sources) HMG-CoA Reductase Inhibitor Start: 09-07-2021 take 1 tablet by mouth in the evening lovastatin (Mevacor) 40 MG tablet Take 40 mg by mouth in the evening. 09/27/2022 Active Start: 06-22-2020 End: 06-18-2023 take 2 tablets by mouth once daily in the evening Lovastatin 20 mg Tablet Discontinued 40 MG PO Every evening June 21, 2020 11:00pm June 18, 2023 10:03am Start: 06-22-2020 End: 06-18-2023 take 40 mg [...] succinate 50 mg extended release oral tablet (20 sources) beta-Adrenergic Jason Start: 04-30-2024 take 1 tablet by mouth once daily Metoprolol Succinate 50 mg tablet extended release 24 hr Active 50 MG PO Daily April 30, 2024 9:47am Start: 04-30-2024 take 1 tablet by bhavik th once daily Metoprolol Succinate 100 mg tablet extended release 24 hr Active 100 MG PO Daily April 30, 2024 9:46am Start: 04-30-2024 End: 04-30-2024 Metoprolol Succinate 50 mg t ablet extended release 24 hr Discontinued 150 MG PO Daily April 30, 2024 12:00am April 30, 2024 9:48am Start: 01-23-2024 End: 04-30-2024 Metoprolol Succinate 100 mg tablet extended release 24 hr Discontinued 150 MG PO Daily January 23, 2024 8:33am April 30, 2024 9:48am Start: 01-23-2024 take 150 mg by mouth once rg y Metoprolol Succinate Active 150 MG PO Daily January 23, 2024 9:33am Start: 10-17-2023 End: 01-23-2024 take 1 tablet by mouth once daily Metoprolol Succinate 100 mg tablet extended release 24 hr Discontinued 100 MG PO Daily October 17, 2023 9:09am January 23, 2024 8:42am Start: 10-17-2023 End: 01-23-2024 take 1 tablet by mouth once daily Metoprolol Succinate 50 mg tablet extended release 24 hr Discontinued 50 MG PO Daily October 16, 2023 11:00pm January 23, 2024 8:36am Start: 10-17-2023 End: 01-23-2024 take 50 mg by mouth once daily Metoprolol Succinate Di scontinued 50 MG PO Daily October 17, 2023 12:00am January 23, 2024 9:36am Start: 06-18-2023 End: 10-17-2023 Metoprolol Succinate 100 mg tablet extended release 24 hr Discontinued 150 MG PO Daily June 17, 2023 11:00pm October 17, 2023 9:10am Start: 06-18-2023 End: 10-17-2023 take 150 mg [...] tablet Orally Once a day Active Multivitamin Tablet (1 source) Start: 01-15-2022 take 1 tablet by mouth once daily Multivitamin Tablet Active 1 TAB PO Daily January 14, 2022 11:00pm nitroglycerin 0.4 mg sublingual tablet (20 sources) Nitrate Vasodilator Start: 06-18-2023 Nitroglycerin (Nitrostat) 0.4 mg tablet, sublingual Active 0.4 MG SUBLINGUAL as needed June 17, 2023 11:00pm nitroglycerin (N itrostat) 0.[address] 1 TABLET UNDER TONGUE EVERY 5 MINS, UP TO 3 DOSES NEEDED FOR CHEST PAIN Active nitroglycerin saha blingual (NITROSTAT) 0.4 mg [...] by mouth once daily at breakfast Pantoprazole 40 mg tablet,delayed release (DR/EC) Active 0 .ROUTE .COMPLEX 90 December 09, 2023 7:47pm TAKE 1 TABLET BY MOUTH DAILY ON AN EMPTY STOMACH FOLLOWED BY BREAKFAST 30 MINUTES AFTER FOR 90 DAYS Start: 07-10-2021 End: 12-09-2023 take 1 tablet by mouth once daily Pantoprazole 40 mg tablet,delayed release (DR/EC) Discontinued 40 MG PO Daily October 16, 2023 11:00pm December 09, 2023 7:47pm 12 hr ranolazine 500 mg extended release oral tablet (1 source) Anti-anginal Start: 02-24-2024 take 1 tablet by mouth twice daily Ranolazine 500 mg tablet extended release 12 hr Active 500 MG PO Twice daily February 24, 2024 12:00am rosuvastatin calcium 40 mg oral tablet (20 sources) HMG-CoA Reductase Inhibitor Start: 06-18-2023 take 1 tablet by mouth once daily Rosuvastatin 40 mg tablet Active 40 MG PO Daily June 17, 2023 11:00pm take 1 tablet by bhavik th every twenty-four hours Rosuvastatin Calcium 40 MG 1 tablet Oral ly Once a day Active Ozempic (14 sources) Start: 09-29-2021 Ozempic qWeek, Refill(s) 0 Start Date: 09/29/21 Status: Ordered Start: 07-10-2021 End: 06-18-2023 Semaglutide (Ozempic) 0.25 m g or 0.5 mg(2 mg/1.5 mL) Pen Injector Discontinued 0.5 MG SUBCUT every week July 09, 2021 11:00pm June 18, 2023 10:03am Saturday spironolactone 25 mg oral tablet (5 sources) Aldosterone Antagonist Start: 10-17-2023 take 1 tablet by mouth once daily Spironolactone 25 mg tablet Active 25 MG PO Daily October 16, 2023 11:00pm thiamine 100 mg oral tablet (20 sources) Start: 08-12-2023 take 1 tablet by mouth every other day Thiamine Hcl (Vitamin B1) 100 mg tablet Active 100 MG PO .QOD August 12, 2023 7:45am Start: 07-02-2023 End: 08-12-2023 Thiamine Hcl (Vitamin B1) 10 0 mg tablet Discontinued 100 MG PO Every 48 hours July 01, 2023 11:00pm August 12, 2023 7:46am take 1 tablet by bhavik th every [...] mg / clavulanate 125 mg oral tablet (10 sources) Penicillin-class Antibacterial Start: 06-24-2020 End: 07-11-2020 take 1 tablet by mouth twice daily Amoxicillin-Pot Clavulanate (Augmentin) 875-125 mg tablet Discontinued 1 TAB PO Twice daily June 23, 2020 11:00pm July 11, 2020 4:52pm bumetanide 0.5 mg oral tablet (20 sources) Loop Diuretic Start: 04-06-2022 End: 08-12-2023 take 1 tablet by mouth once daily as needed Bumetanide 0.5 mg tablet Discontinued 0.5 MG PO Daily as needed June 17, 2023 11:00pm August 12, 2023 7:42am carvedilol 25 mg oral tablet (20 sources) alpha-Adrenergic Jason, beta-Adrenergic Jason Start: 01-17-2022 End: 06-18-2023 take 1 tablet by mouth twice daily at mealtime Carvedilol 25 mg Tablet Discontinued 25 MG PO Twice daily with meals 60 30 January 16, 2022 11:00pm June 18, 2023 10:01am Start: 09-07-2021 take 1 tablet by bhavik th in the morning carvedilol (Coreg) 12.5 MG tablet Take 12.5 mg by mouth in the morning and 12.5 mg in the evening. Take with meals. 07/16/2022 Active Start: 06-22-2020 End: 01-17-2022 Carvedilol 25 mg Tablet Discontinued 12.5 MG PO Twice daily June 21, 2020 11:00pm January 17, 2022 1:28pm Start: 06-22-2020 End: 01-17-2022 take 12.5 mg [...] with meals. dapagliflozin 10 mg oral tablet (15 sources) Sodium-Glucose Cotransporter 2 Inhibitor Start: 06-18-19 End: 06-18-19 take 1 tablet by mouth once daily Dapagliflozin Propanediol (Farxiga) 10 mg tablet Discontinued 10 MG PO Daily June 17, 2023 11:00pm June 18, 2023 10:58am take 1 tablet by bhavik every twenty-four hours Farxiga 10 MG 1 tablet Orally Once a day Not-Taking/PRN docusate sodium 100 mg oral capsule (20 sources) Start: 06-18-2023 End: 08-12-2023 take 1 capsule by mouth once daily Docusate Sodium 100 mg capsule Discontinued 100 MG PO Daily June 17, 2023 11:00pm August 12, 2023 7:42am take 1 capsule by mo [facility] every twenty-four hours Colace 100 MG 1 capsule as needed Orally Once a day Active Colace Active empagliflozin 10 mg oral tablet (20 sources) Sodium-Glucose Cotransporter 2 Inhibitor Start: 06-22-2020 End: 04-21-2024 take 1 tablet by mouth once daily Empagliflozin 10 mg tablet Discontinued 10 MG PO Daily June 17, 2023 11:00pm January 23, 2024 9:02am empagliflozin (J ARDIANCE) 25 mg tablet q 24 HR. 0 Active Comment on above: q 24 HR. ergocalciferol, vitamin D2, (VITAMIN D2 ORAL) (1 source) ergocalciferol, vitamin D2, (VITAMIN D2 ORAL) Take by mouth. 0 Active Comment on above: Take by mouth. famotidine 40 mg oral tablet (20 sources) Histamine-2 Receptor Antagonist Start: 2 End: 2 take 1 tablet by mouth twice daily Famotidine 40 mg Tablet Discontinued 40 MG PO Twice daily January 14, 2022 11:00pm January 15, 2022 6:52pm Start: 09-07-2021 take 1 tablet by bhavik th twice daily famotidine 20 mg Tab 20 mg = 1 tab(s), Oral, BID, Refills(s) 0 Start Date: 09/07/21 Status: Ordered Start: 06-22-2020 End: 07-10-2021 take 1 tablet by mouth twice daily Famotidine 40 mg Tablet Discontinued 40 MG PO Twice daily June 21, [...] Insulin) 100 unit/mL (3 mL) Insulin Pen (10 sources) Start: 2 End: 4 inject 5 [IU] by subcutaneous injection three times daily Insulin Aspart U-100 (Novolog Flexpen U-100 Insulin) 100 unit/mL (3 mL) Insulin Pen Discontinued 1 UNIT SUBCUT Three times daily January 14, 2022 11:00pm June 18, 2023 10:08am 5 units at times depending on blood sugar Start: 01-15-2022 End: 06-18-2023 inject 5 [IU] by subcutaneous [...] Refills(s) 0 Start Date: 09/29/21 Status: Ordered insulin detemir (Levemir) 100 UNIT/ML injection Inject under the skin twice a day. Active inject 10 [IU] by saha bcutaneous injection twice daily Levemir FlexPen 100 UNIT/ML 10 units Subcutaneous bid (titrate up to 40 units/day) Active Levemir FlexPen 100 UNIT/ML 12 units Subcutaneous bid (titrate up to 40 units/day) Active Levemir Flexpen 100 UNIT/ML 13 units Subcutaneous bid Active Insulin Detemir U-100 (Levemir Flexpen) 100 unit/mL (3 mL) insulin pen (16 sources) Start: 01-07-2024 End: 04-30-2024 inject 5 [IU] by subcutaneous injection twice daily Insulin Detemir U-100 (Levemir Flexpen) 100 unit/mL (3 mL) insulin pen Discontinued 5 UNIT SUBCUT Twice daily January 07, 2024 8:19am April 30, 2024 9:44am Start: 01-07-2024 inject 5 [IU] by sub cutaneous injection twice daily Insulin Detemir U-100 (Levemir Flexpen) 100 unit/mL (3 mL) insulin pen Active 5 UNIT SUBCUT Twice daily January 07, 2024 9:19am Start: 10-17-2023 End: 01-07-2024 inject 7 [IU] by subcutaneous injection twice daily Insulin Detemir U-100 (Levemir Flexpen) 100 unit/mL (3 mL) insulin pen Discontinued 7 UNIT SUBCUT Twice daily October 17, 2023 9:08am January 07, 2024 8:19am Start: 10-17-2023 End: 01-07-2024 inject 7 [IU] by subcutaneous injection twice daily Insulin Detemir U-100 (Levemir Flexpen) 100 unit/mL (3 mL) insulin pen Discontinued 7 UNIT SUBCUT Twice daily October 17, 2023 10:08am January 07, 2024 9:19am Start: 10-17-2023 inject 7 [IU] by sub cutaneous injection twice daily Insulin Detemir U-100 (Levemir Flexpen) 100 unit/mL (3 mL) insulin pen Active 7 UNIT SUBCUT Twice daily October 17, 2023 10:08am Start: 06-18-2023 End: 10-17-2023 inject 5 [IU] by subcutaneous injection twice daily Insulin Detemir U-100 (Levemir Flexpen) 100 unit/mL (3 mL) insulin pen Discontinued 5 UNIT SUBCUT Twice daily June 17, 2023 11:00pm October 17, 2023 9:10am Start: 06-18-2023 End: 10-17-2023 inject 5 [IU] [...] SUBCUT Twice daily June 18, 2023 12:00am insulin lispro 100 unt/ml injectable solution (7 sources) Insulin Analog HumaLOG 100 UNIT /ML as directed Injection with breakfast, lunch and evening meal Not-Taking/PRN HumaLOG 100 UNIT /ML as directed Injection with breakfast, lunch and evening meal Not-Taking insulin, regular, human 100 unt/ml injectable solution (17 sources) Insulin Start: 07-11-2020 End: 01-15-2022 Insulin Regular Human (Novolin R Regular U100 Insulin) 100 unit/mL Solution Discontinued 1 UNIT SUBCUT As Directed July 10, 2020 11:00pm January 15, 2022 2:42pm sliding scale insulin regular (HumuLIN R,NovoLIN R) 100 UNIT/ML injection Inject 30 Units under the skin in the morning and 30 Units at noon and 30 Units in the evening. Inject with meals. Active NovoLIN R ReliOn 100 UNIT/ML 10-15-20 units ac according to meal size plus corrective scale 1:20 ac tid (hs if > over 200 half dose) SQ AC,HS expect 80 units a day Not-Taking lisinopril 2.5 mg oral tablet (20 sources) Angiotensin Converting Enzyme Inhibitor Start: 07-02-2023 End: 02-24-2024 take 1 tablet by mouth twice daily Lisinopril 2.5 mg tablet Discontinued 2.5 MG PO Twice daily July 01, 2023 11:00pm February 24, 2024 9:45am Start: 06-18-2023 End: 06-18-2023 take 1 tablet by mouth twice daily Lisinopril 2.5 mg tablet Discontinued 2.5 MG PO Twice daily June 17, 2023 11:00pm June 18, 2023 10:58am Start: 05-02-2022 take 1 tablet by bhavik th in the morning lisinopril 5 MG tablet Take 5 mg by mouth in the morning. 05/02/2022 Active Start: 06-22-2020 End: 06-18-2023 take 1 tablet by mouth once daily in the evening Lisinopril 20 mg Tablet Discontinued 20 MG PO every evening at 6 PM. June 21, 2020 11:00pm June 18, 2023 9:56am take 1 tablet by bhavik th every [...] Take 20 mg by mouth once daily. multivit-minerals/fo lic acid (ONE-A-DAY MEN VITACRAVES ORAL) (1 source) multivit-mineral s/f olic acid (ONE-A-DAY MEN VITACRAVES ORAL) Take by mouth. 0 Active Comment on above: Take by mouth. pioglitazone 15 mg oral tablet (1 source) Peroxisome Proliferator Receptor alpha Agonist, Peroxisome Proliferator Receptor gamma Agonist, Thiazolidinedione Start: 019 pioglitazone (ACTOS) 15 mg tablet potassium chloride 10 meq oral tablet (20 sources) take 1 tablet by mouth once daily at mealtime Potassium Chloride 10 MEQ 1 tablet with food Orally Once a day Not-Taking/PRN predniSONE 20 mg oral tablet (10 sources) Start: 06-24-2020 End: 07-11-2020 take 2 tablets by mouth once daily Prednisone 20 mg tablet Discontinued 40 MG PO Daily 18 01June 23, 2020 11:00pm July 11, 2020 4:52pm Start: 06-24-2020 End: 07-11-2020 take 40 mg by mouth once daily Prednisone Discontinued 40 MG PO Daily 18 01June 24, 2020 12:00am July 11, 2020 5:52pm sacubitril 24 mg / valsartan 26 mg oral tablet (15 sources) Angiotensin 2 Receptor Jason Start: 06-18-2023 End: 06-18-2023 take 1 tablet by mouth twice daily Sacubitril-Valsartan (Entresto) 24-26 mg tablet Discontinued 1 TAB PO Twice daily June 17, 2023 11:00pm June 18, 2023 10:59am take 1 tablet by bhavik th every twelve hours Entresto 24-26 MG 1 tablet Orally Twice a day Not-Taking/PRN Semaglutide (8 sources) Start: 06-18-2023 End: 06-18-2023 inject 1 mg by subcutaneous injection every week Semaglutide 1 mg/dose (4 mg/3 mL) pen injector Discontinued 1 MG SUBCUT every week June 17, 2023 11:00pm June 18, 2023 10:15am Start: 06-18-2023 End: 06-18-2023 inject 1 mg by subcutaneous injection every week Semaglutide Discontinued 1 MG SUBCUT every week June 18, 2023 12:00am June 18, 2023 11:15am ticagrelor 90 mg oral tablet (10 sources) Start: 07-13-2020 End: 07-10-2021 take 1 tablet by mouth twice daily Ticagrelor (Brilinta) 90 mg Tablet Discontinued 90 MG PO Twice daily 180 90 July 12, 2020 11:00pm July 10, 2021 8:59am triamcinolone acetonide 0.14615 mg/mg topical ointment (1 source) Corticosteroid triamcinolone (KENALOG) 0.025 % ointment Apply to affected area twice daily. 0 Active Comment on above: Apply to affected ar ea twice daily. VITAMIN B COMPLEX ORAL (1 source) VITAMIN B COMPLE X ORAL Take by mouth every other day. 0 Active Comment on above: Take by mouth every other day. vitamin b12 1 mg oral tablet (18 sources) Vitamin B12 Start: 06-18-2023 End: 07-02-2023 take 1 tablet by mouth every other day Cyanocobalamin (Vitamin B-12) (Vitamin B-12) 1,000 mcg tablet Discontinued 1000 MCG PO .every other day June 18, 2023 10:02am July 02, 2023 8:03am Start: 01-15-2022 End: 06-18-2023 take 1 tablet by mouth once daily Cyanocobalamin (Vitamin B-12) (Vitamin B-12) 1,000 mcg Tablet Discontinued 1000 MCG PO Daily January 14, 2022 11:00pm June 18, 2023 10:08am Problems Active Problems Problem Classification Problem Date Documented Date Episodic/Chronic Acute myocardial infarction (20 sources) Myocardial infarction; Translations: [Non-ST elevation (NSTEMI) myocardial infarction] Onset: 2 07-12-2020 Chronic Comment on above: 12/2022 Administrative/social admission (20 sources) Financial problem; Translations: [Other problems related to housing and economic circumstances] Onset: 1 Resolved: 2 Episodic Anxiety disorders (6 sources) Generalized anxiety disorder; Translations: [Generalized anxiety disorder] 08-06-2023 Chronic Cataract (6 sources) Bilateral age-related nuclear cataracts; Translations: [Age-related nuclear cataract, bilateral] Onset: 3 10-12-2022 Chronic Chronic kidney disease (20 sources) Chronic [...] due to drugs Episodi c Conduction disorders (12 sources) Atrioventricular block, complete; Translations: [Presence of cardiac pacemaker] Onset: 2 Chronic Congestive heart failure; nonhypertensive (20 sources) Acute on chronic systolic (congestive) heart failure; Translations: [Acute on chronic combined systolic (congestive) and diastolic (congestive) heart failure] Onset: 2 Chronic Comment on above: Echo: LVEF 25%, LVH, normal RV size/function - 01/2024 Coronary atherosclerosis and other heart disease (20 sources) Multi vessel coronary artery disease; Translations: [Atherosclerotic heart disease of [place] coronary artery without angina pectoris] Onset: 3 09-07-2021 Chronic Comment on above: CABG x 5 - 1995PCI/s tent x 6 Deficiency and other anemia (20 sources) Anemia of renal disease; Translations: [Anemia in chronic kidney disease] Chronic Deficiency and other anemia (2 sources) Anemia in chronic kidney disease; Translations: [ANEMIA IN CHRONIC KIDNEY DISEASE] Onset: 3 Chronic Diabetes mellitus with complications (20 sources) Type 2 diabetes mellitus; Translations: [Type 2 diabetes mellitus with diabetic neuropathy, unspecified] Onset: 1 Resolved: 2 Chronic Comment on above: MITRA:> 1.30 consisten t w/ calcified, noncompressible arterial dias - 12/2023 Diabetes mellitus without complication (20 sources) Diabetes [...] kidney disease] Onset: 1 Resolved: 2 Chronic Mycoses (4 sources) Pain in toe; Translations: [Tinea unguium] 01-23-2024 Episodic Neoplasms of unspecified nature or uncertain behavior (3 sources) Monoclonal gammopathy of uncertain significance; Translations: [Monoclonal gammopathy (clinical)] Onset: 9 09-07-2021 Chronic Nonspecific chest pain (13 sources) Chest pain; Translations: [Chest pain, unspecified] Onset: 2 07-11-2020 Episodic Nutritional deficiencies (20 sources) Vitamin D deficiency; Translations: [Vitamin D deficiency, unspecified] Onset: 1 Resolved: 2 Chronic Other aftercare (20 sources) Long-term current use of insulin; Translations: [FDC (current) use of insulin] Episodic Other aftercare (11 sources) 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; Translations: [FDC current use of insulin Z79.4] Onset: 1 [...] Chronic Other diseases of kidney and ureters (10 sources) Secondary hyperparathyroidism of renal origin; Translations: [Secondary hyperparathyroidism (of renal origin)] Chronic Other gastrointestinal disorders (1 source) Irritable bowel syndrome 09-07-2021 Chronic Other gastrointestinal disorders (16 sources) Constipation; Translations: [Constipation, unspecified] Episodic Other hematologic conditions (1 source) Raised cardiac enzyme or marker; Translations: [Other specified abnormalities of plasma proteins] 07-11-2020 Episodic Other lower respiratory disease (10 sources) Hypoxia; Translations: [Hypoxemia] 06-22-2020 Episodic Other lower respiratory disease (15 sources) Other nonspecific abnormal finding of lung field; Translations: [Ground glass opacity present on imaging of lung] Onset: 2 Episodic Other lower respiratory disease (12 sources) Solitary pulmonary nodule; Translations: [Solitary pulmonary nodule] Onset: 2 Episodic Other lower respiratory disease (18 sources) Nodule of lung; Translations: [Solitary pulmonary nodule] 07-22-2023 Episodic Comment on above: CT: 8mm RML nodule - T: 6mm RML nodule - 3CT: 7mm RML nodule - T: 6.5mm RML nodule - 07/2023 Other non-traumatic joint disorders (20 sources) Shoulder [...] Episodic Other nutritional; endocrine; and metabolic disorders (5 sources) Body mass index (BMI) 27.0-27.9, adult; Translations: [Body Mass Index 27.0-27.9, adult] Onset: 2 Resolved: 2 Episodic Other nutritional; endocrine; and metabolic disorders (3 sources) Body mass index (BMI) 26.0-26.9, adult; Translations: [Body Mass Index 26.0-26.9, adult] Episodic Other nutritional; endocrine; and metabolic disorders (9 sources) Overweight in adulthood with body mass index of 25 or more but less than 30; Translations: [Body mass index (BMI) 26.0-26.9, adult] 06-18-2023 Episodic Other nutritional; endocrine; and metabolic disorders (3 sources) Body mass index (BMI) 28.0-28.9, adult; Translations: [Body Mass Index 28.0-28.9, adult] 10-17-2023 Episodic Other screening for suspected conditions (not mental disorders or infectious disease) (19 sources) Increased immunoglobulin; Translations: [Patient encounter status] Onset: 4 09-07-2021 Episodic Other skin disorders (2 sources) Asteatosis cutis; Translations: [Xerosis cutis] 01-23-2024 Episodic Jolene-; endo-; and myocarditis; cardiomyopathy (except [...] 3b; Translations: [Chronic renal impairment, stage 3b] Past or Other Problems Problem Classification Problem Date Documented Da te Episodic/Chronic Abdominal pain (11 sources) Right lower quadrant pain; Translations: [Right lower quadrant pain] Onset: 09-29-2021 Episodic Biliary tract disease (5 sources) Calculus of gallbladder without cholecystitis without obstruction; Translations: [CALCU GB W/O CHOLECYST W/O OBST] Onset: 09-04-2021 Episodic Cardiac dysrhythmias (2 sources) Bradycardia, unspecified; Translations: [Bradycardia R00.1] Onset: 01-03-2021 Resolved: 07-17-2021 Episodic Chronic kidney [...] source) Dehydration; Translations: [DEHYDRATION] Onset: 10-31-2021 Episodic Inflammation; infection of eye (except that caused by tuberculosis or sexually transmitteddisease) (6 sources) Blepharitis of upper and lower eyelids of bilateral eyes; Translations: [Unspecified blepharitis right eye, upper and lower eyelids] Onset: 10-12-2022 10-12-2022 Episodic Nausea and vomiting (7 sources) Nausea; Translations: [Nausea] Onset: 09-29-2021 Episodic Other aftercare (1 source) FDC (current) use of aspirin; Translations: [ALF CURRENT USE OF ASPIRIN] Onset: 04-03-2022 Episodic Other aftercare (1 source) Other long term care social worker (current) drug therapy; Translations: [OTH ALF CURRENT DRUG THERAPY] Onset: 04-03-2022 Episodic Other eye disorders (6 sources) Dry eyes; Translations: [Dry eye syndrome of bilateral lacrimal glands] Onset: 10-12-2022 10-12-2022 Episodic Other lower respiratory disease (1 source) [...] sources) Chronic renal impairment, stage 3b N18.32 Results Test Name Value Interpretation Reference Range Facility Office Visiton 03-10-2024 Follow-up visit [id number] Lani Lizama 1950 M Date Provider Department Center 03/10/2024 KEVIN DEMPSEY MARCEL[facility] Family History Problem Relation Age of Onset Heart attack Mother Other Father Other Brother Heart attack Maternal Grandmother Heart attack Maternal Grandfather Family Status - Relation Status Age at Mother Father Brother Maternal Grandmother Maternal Grandfather Level of Service:99804 SD OFFICE/OUTPATIENT NEW LOW MDM 30 MINUTES Normal [facility] 30on 02-14-2024 30 The patient is Moder ately Stable - Low risk of patient condition declining or worsening The patient's goals for the shift include get better The clinical goals for the shift include VSS Normal [facility] 30 The patient is Moder ately Stable - Low risk of patient condition declining or worsening The patient's goals for the shift include get better The clinical goals for the shift include VSS, comfort, rest, safety Over the shift, the patient did not make progress toward the following goals. Barriers to progression include n/a. Recommendations to address these barriers include n/a. Problem: Pain - Adult Goal: Verbalizes/displays adequate comfort level or baseline comfort level Outcome: Progressing Flowsheets (Taken 02/14/202450) Verbalizes/displays adequate comfort level or baseline comfort level: Encourage patient to monitor pain and request assistance Assess pain using appropriate pain scale Administer analgesics based on type and severity of pain and evaluate response Implement non-pharmacological measures as appropriate and evaluate response Consider cultural and social influences on pain and pain management Notify Licensed Independent Practitioner if interventions unsuccessful or patient reports new pain Problem: Safety - Adult Goal: Free from fall injury Outcome: Progressing Flowsheets (Taken 02/14/202450) Free from fall injury: Assess patient frequently for physical needs Identify cognitive and physical deficits and behaviors that affect risk of falls [place] fall precautions as indicated by assessment Educate patient/family on patient safety, including physical limitations Instruct patient to call for assistance with activity based on assessment Modify environment to reduce risk of injury Problem: Discharge Planning Goal: Discharge to home or other facility with appropriate resources Outcome: Progressing Flowsheets (Taken 02/14/202450) Discharge to home or other facility with appropriate resources: Identify barriers to discharge with patient and caregiver Arrange for needed discharge resources and transportation as appropriate Identify discharge learning needs (meds, wound care, etc) Arrange for interpreters to assist at discharge as needed Problem: Chronic Conditions and Co-morbidities Goal: Patient's chronic conditions and co-morbidity symptoms are monitored and maintained or improved Outcome: Progressing Flowsheets (Taken 02/14/2024 0051) Care Plan - Patient's Chronic Conditions and Co-Morbidity Symptoms are Monitored and Maintained or Improved: Monitor and assess patient's chronic conditions and comorbid symptoms for stability, deterioration, or improvement Collaborate with multidisciplinary team to address chronic and comorbid conditions and prevent exacerbation or deterioration Update acute care plan with appropriate goals if chronic or comorbid symptoms are exacerbated and prevent overall improvement and discharge Normal [facility] BASIC METABOLIC PANELon 01-30 Anion gap [Moles/Vol] 9 mmol/L Normal 7-20 [facility] Comment on above: Performed By: #### L [id number] #### [facility] ([facility]) [address] [place] [address] Calcium [Mass/Vol] 8.4 mg/dL Low 8.6-10.3 [facility] Comment on above: Performed By: #### L [id number] #### [facility] ([facility]) [address] [place] [address] Chloride [Moles/Vol] 109 mmol/L High 98-107 [facility] Comment on above: Performed By: #### L [id number] #### [facility] ([facility]) [address] [place] [address] CO2 [Moles/Vol] 25 mmol/L Normal 21-31 [facility] Comment on above: Performed By: #### L [id number] #### [facility] ([facility]) [address] [place] [address] Creatinine [Mass/Vol] 1.65 mg/dL High 0.70-1.30 [facility] Comment on above: Performed By: #### L [id number] #### [facility] ([facility]) [address] [place] [address] GLOMERULAR FILTRATION RATE ML/MIN/1.73 SQ M.PREDICTED 43.8 mL/min/1.73m*2 Low >60.0 [facility] Comment on above: Result Comment: The [facility]???s estimated glomerular filtration rate (eGFR) will no [...] group of individuals. Performed By: #### L [id number] #### [facility] ([facility]) [address] [place] [address] Glucose [Mass/Vol] 118 mg/dL High 70-100 [facility] Comment on above: Performed By: #### L [id number] #### [facility] ([facility]) [address] [place] [address] Potassium [Moles/Vol] 4.3 mmol/L Normal 3.5-5.1 [facility] Comment on above: Performed By: #### L [id number] #### [facility] ([facility]) [address] [place] [address] Sodium [Moles/Vol] 139 mmol/L Normal 136-145 [facility] Comment on above: Performed By: #### L [id number] #### [facility] ([facility]) [address] [facility] [place] [place] [address] Urea nitrogen [Mass/Vol] 19 mg/dL Normal 7-25 [facility] Comment on above: Performed By: #### L [id number] #### [facility] ([facility]) [address] [place] [address] UREA NITROGEN/CREATININE (MASS RATIO) IN SER/PLAS 11.5 Normal [facility] Comment on above: Performed By: #### L [id number] #### [facility] ([facility]) [address] [place] [address] CBCon 02-14-2024 Erythrocyte distribution width (RBC) [Ratio] 13.8 % Normal 11.5-15.0 [facility] Comment on above: Performed By: #### L [id number] #### [facility] ([facility]) [address] [place] [address] ERYTHROCYTE MEAN CORPUSCULAR HEMOGLOBIN CONCENTRATION (G/DL) BY AUTOMATED 32.9 g/dL Normal 32.0-35.0 [facility] Comment on above: Performed By: #### L [id number] #### [facility] ([facility]) [address] [place] [address] Hematocrit (Bld) [Volume fraction] 38.0 % Low 39.0-55.0 [facility] Comment on above: Performed By: #### L [id number] #### [facility] ([facility]) [address] [place] [address] Hemoglobin (Bld) [Mass/Vol] 12.5 g/dL Low 13.0-17.0 [facility] Comment on above: Performed By: #### L [id number] #### [facility] ([facility]) [address] [place] [address] MCH (RBC) [Entitic mass] 30.1 pg Normal 27.0-33.0 [facility] Comment on above: Performed By: #### L [id number] #### [facility] ([facility]) [address] [place] [address] MCV (RBC) [Entitic vol] 91.6 fL Normal 82.0-98.0 [facility] Comment on above: Performed By: #### L [id number] #### [facility] ([facility]) [address] [place] [address] PLATELETS (10*3/UL) IN BLOOD AUTOMATED COUNT 176 10*3/uL Normal 150-400 [facility] Comment on above: Performed By: #### L [id number] #### [facility] ([facility]) [address] [place] [address] RBC (Bld) [#/Vol] 4.15 10*6/uL Low 4.20-5.70 [facility] Comment on above: Performed By: #### L [id number] #### [facility] ([facility]) [address] [place] [address] WBC (Bld) [#/Vol] 6.88 10*3/uL Normal 4.00-10.60 [facility] Comment on above: Performed By: #### L [id number] #### [facility] ([facility]) [address] [place] [address] NURSNOTEon 02-14-2024 NURSNOTE Discharge instructio n given , patient verbalized understanding, no follow up questions asked Normal [facility] POCT GLUCOSE METER UNSOLICIT ED RESULTSon 02-14-2024 Glucose [Mass/Vol] 231 mg/dL High 70-105 [facility] Comment on above: Order Comment: Check anti-Xa level every 6 hours while on heparin infusion, or per protocol. Result Comment: [email or web address] Performed By: #### L [id number] #### [facility] ([facility]) [address] [place] [address] Glucose [Mass/Vol] 128 mg/dL High 70-105 [facility] Comment on above: Order Comment: Waive d Testing in the ED is performed under the ED CLIA certificate #[id number]. Result Comment: [email or web address] Performed By: #### L [id number] #### [facility] ([facility]) [address] [place] [address] TROPONIN Ion 02-14-2024 Troponin I.cardiac [Mass/Vol] 1.08 ng/mL Critically high 0.00-0.04 [facility] Comment on above: Result Comment: M-SD EVIOUS CRITICAL RESULT Previous result verified on 02/14/2024 0605 on specimen/case [id number] called with component Troponin I for procedure Troponin I with value 1.69 ng/mL. Performed By: #### L [id number] #### [facility] ([facility]) [address] [place] [address] Troponin I.cardiac [Mass/Vol] 1.69 ng/mL Critically high 0.00-0.04 [facility] Comment on above: Performed By: #### L [id number] #### [facility] ([facility]) [address] [place] [address] 30on 02-13-2024 30 The patient is Moder ately Stable - Low risk of patient condition declining or worsening The patient's goals for the shift include get better The clinical goals for the shift include VSS Normal [facility] 30 The patient is Moder ately Stable - Low risk of patient condition declining or worsening The patient's goals for the shift include comfort, rest The clinical goals for the shift include stable vs Over the shift, the patient did not make progress toward the following goals. Barriers to progression include chest pain. Recommendations to address these barriers include medication. Problem: Pain - Adult Goal: Verbalizes/displays adequate comfort level or baseline comfort level 02/13/2024328 by Louis Lance RN Outcome: Progressing Flowsheets (Taken 02/13/2024320) Verbalizes/displays adequate comfort level or baseline comfort level: Encourage patient to monitor pain and request assistance Assess pain using appropriate pain scale Administer analgesics based on type and severity of pain and evaluate response Implement non-pharmacological measures as appropriate and evaluate response Consider cultural and social influences on pain and pain management Notify Licensed Independent Practitioner if interventions unsuccessful or patient reports new pain 02/13/2024320 by Louis Lance RN Outcome: Progressing Flowsheets (Taken 02/13/2024320) Verbalizes/displays adequate comfort level or baseline comfort level: Encourage patient to monitor pain and request assistance Assess pain using appropriate pain scale Administer analgesics based on type and severity of pain and evaluate response Implement non-pharmacological measures as appropriate and evaluate response Consider cultural and social influences on pain and pain management Notify Licensed Independent Practitioner if interventions unsuccessful or patient reports new pain Problem: Safety - Adult Goal: Free from fall injury 02/13/2024328 by Louis Lance RN Outcome: Progressing Flowsheets (Taken 02/13/2024320) Free from fall injury: Assess patient frequently for physical needs Identify cognitive and physical deficits and behaviors that affect risk of falls [place] fall precautions as indicated by assessment Educate patient/family on patient safety, including physical limitations Instruct patient to call for assistance with activity based on assessment Modify environment to reduce risk of injury 02/13/2024320 by Louis Lance RN Outcome: Progressing Flowsheets (Taken 02/13/2024320) Free from fall injury: Assess patient frequently for physical needs Identify cognitive and physical deficits and behaviors that affect risk of falls [place] fall precautions as indicated by assessment Educate patient/family on patient safety, including physical limitations Instruct patient to call for assistance with activity based on assessment Modify environment to reduce risk of injury Problem: Discharge Planning Goal: Discharge to home or other facility with appropriate resources 02/13/2024328 by Louis Lance RN Outcome: Progressing Flowsheets (Taken 02/13/2024320) Discharge to home or other facility with appropriate resources: Identify barriers to discharge with patient and caregiver Arrange for needed discharge resources and transportation as appropriate Identify discharge learning needs (meds, wound care, etc) 02/13/2024320 by Louis Lance RN Outcome: Progressing Flowsheets (Taken 02/13/2024320) Discharge to home or other facility with appropriate resources: Identify barriers to discharge with patient and caregiver Arrange for needed discharge resources and transportation as appropriate Identify discharge learning needs (meds, wound care, etc) Problem: Chronic Conditions and Co-morbidities Goal: Patient's chronic conditions and co-morbidity symptoms are monitored and maintained or improved 02/13/2024328 by Louis Lance RN Outcome: Progressing 02/13/2024320 by Louis Lance RN Outcome: Progressing Flowsheets (Taken 02/13/2024320) Care Plan - Patient's Chronic Conditions and Co-Morbidity Symptoms are Monitored and Maintained or Improved: Monitor and assess patient's chronic conditions and comorbid symptoms for stability, deterioration, or improvement Collaborate with multidisciplinary team to address chronic and comorbid conditions and prevent exacerbation or deterioration Update acute care plan with appropriate goals if chronic or comorbid symptoms are exacerbated and prevent overall improvement and discharge Normal [facility] ANTI-XA (HEPARIN LEVEL)on HEPARIN UNFRACTIONATED (U/ML) IN PPP BY CHROMOGENIC METHOD 0.85 IU/mL High 0.3-0.7 [facility] Comment on above: Order Comment: Check anti-Xa level every 6 hours while on heparin infusion, or per protocol. Result Comment: [place] roxaban and Apixaban will interfere with the anti Xa assay used to monitor UFH and LMWH. Performed By: #### L [id number] #### [facility] ([facility]) [address] [place] [address] APTTon 02-13-2024 ACTIVATED PARTIAL THROMBOPLASTIN TIME IN PPP BY COAGULATION ASSAY 93.5 Seconds High 25.0-35.0 [facility] Comment on above: Order Comment: Waive d Testing in the ED is performed under the ED CLIA certificate #[id number]. Result Comment: Clin ical significance of the APTT is questionable in the presence of heparin. Performed By: #### L [id number] #### [facility] ([facility]) [address] [place] [address] B-TYPE NATRIURETIC PEPTIDEon 02-13-2024 Natriuretic peptide B (Bld) [Mass/Vol] 693 pg/mL High 0-100 [facility] Comment on above: Performed By: #### L [id number] #### [facility] ([facility]) [address] [place] [address] BASIC METABOLIC PANELon 01-30 Anion gap [Moles/Vol] 10 mmol/L Normal 7-20 [facility] Comment on above: Performed By: #### L [id number] #### [facility] ([facility]) [address] [place] [address] Calcium [Mass/Vol] 8.9 mg/dL Normal 8.6-10.3 [facility] Comment on above: Performed By: #### L [id number] #### [facility] ([facility]) [address] [place] [address] Chloride [Moles/Vol] 107 mmol/L Normal 98-107 [facility] Comment on above: Performed By: #### L [id number] #### [facility] ([facility]) [address] [place] [address] CO2 [Moles/Vol] 25 mmol/L Normal 21-31 [facility] Comment on above: Performed By: #### L [id number] #### [facility] ([facility]) [address] [place] [address] Creatinine [Mass/Vol] 1.61 mg/dL High 0.70-1.30 [facility] Comment on above: Performed By: #### L [id number] #### [facility] ([facility]) [address] [place] [address] GLOMERULAR FILTRATION RATE ML/MIN/1.73 SQ M.PREDICTED 45.2 mL/min/1.73m*2 Low >60.0 [facility] [facility] Comment on above: Result Comment: [facility]???s estimated glomerular filtration rate (eGFR) will no [...] group of individuals. Performed By: #### L [id number] #### [facility] ([facility]) [address] [place] [address] Glucose [Mass/Vol] 174 mg/dL High 70-100 [facility] Comment on above: Performed By: #### L [id number] #### [facility] ([facility]) [address] [place] [address] Potassium [Moles/Vol] 4.3 mmol/L Normal 3.5-5.1 [facility] Comment on above: Performed By: #### L [id number] #### [facility] ([facility]) [address] [place] [address] Sodium [Moles/Vol] 138 mmol/L Normal 136-145 [facility] Comment on above: Performed By: #### L [id number] #### [facility] ([facility]) [address] [place] [address] Urea nitrogen [Mass/Vol] 20 mg/dL Normal 7-25 [facility] Comment on above: Performed By: #### L [id number] #### [facility] ([facility]) [address] [place] [address] UREA NITROGEN/CREATININE (MASS RATIO) IN SER/PLAS 12.4 Normal [facility] Comment on above: Performed By: #### L [id number] #### [facility] ([facility]) [address] [place] [address] CBC WITH AUTO DIFFERENTIALon 02-13-2024 Basophils (Bld) [#/Vol] 0.05 10*3/uL Normal 0.00-0.20 [facility] Comment on above: Performed By: #### L [id number] #### [facility] ([facility]) [address] [place] [address] Basophils/100 WBC (Bld) 0.7 % Normal 0.0-1.0 [facility] Comment on above: Performed By: #### L [id number] #### [facility] ([facility]) [address] [place] [address] Eosinophils (Bld) [#/Vol] 0.13 10*3/uL Normal 0.00-0.50 [facility] Comment on above: Performed By: #### L [id number] #### [facility] ([facility]) [address] [place] [address] Eosinophils/100 WBC (Bld) 1.8 % Normal 0.0-6.0 [facility] Comment on above: Performed By: #### L [id number] #### [facility] ([facility]) [address] [place] [address] Erythrocyte distribution width (RBC) [Ratio] 13.4 % Normal 11.5-15.0 [facility] Comment on above: Performed By: #### L [id number] #### [facility] ([facility]) [address] [place] [address] ERYTHROCYTE MEAN CORPUSCULAR HEMOGLOBIN CONCENTRATION (G/DL) BY AUTOMATED 34.1 g/dL Normal 32.0-35.0 [facility] Comment on above: Performed By: #### L [id number] #### [facility] ([facility]) [address] [place] [address] Hematocrit (Bld) [Volume fraction] 40.2 % Normal 39.0-55.0 [facility] Comment on above: Performed By: #### L [id number] #### [facility] ([facility]) [address] [place] [address] Hemoglobin (Bld) [Mass/Vol] 13.7 g/dL Normal 13.0-17.0 [facility] Comment on above: Performed By: #### L [id number] #### [facility] ([facility]) [address] [place] [address] Immature granulocytes (Bld) [#/Vol] 0.03 10*3/uL Normal 0.00-0.20 [facility] Comment on above: Performed By: #### L [id number] #### [facility] ([facility]) [address] [place] [address] Immature granulocytes/100 WBC (Bld) 0.4 % Normal 0.0-1.0 [facility] Comment on above: Performed By: #### L [id number] #### [facility] ([facility]) [address] [place] [address] Lymphocytes (Bld) [#/Vol] 1.64 10*3/uL Normal 1.20-4.00 [facility] Comment on above: Performed By: #### L [id number] #### [facility] ([facility]) [address] [place] [address] Lymphocytes/100 WBC (Bld) 22.3 % Normal 20.0-45.0 [facility] Comment on above: Performed By: #### L [id number] #### [facility] ([facility]) [address] [place] [address] MCH (RBC) [Entitic mass] 30.2 pg Normal 27.0-33.0 [facility] Comment on above: Performed By: #### L [id number] #### [facility] ([facility]) [address] [place] [address] MCV (RBC) [Entitic vol] 88.5 fL Normal 82.0-98.0 [facility] Comment on above: Performed By: #### L [id number] #### [facility] ([facility]) [address] [place] [address] Monocytes (Bld) [#/Vol] 0.69 10*3/uL Normal 0.10-1.00 [facility] Comment on above: Performed By: #### L [id number] #### [facility] ([facility]) [address] [place] [address] Monocytes/100 WBC (Bld) 9.4 % Normal 5.0-12.0 [facility] Comment on above: Performed By: #### L [id number] #### [facility] ([facility]) [address] [place] [address] Neutrophils (Bld) [#/Vol] 4.80 10*3/uL Normal 1.60-7.60 [facility] Comment on above: Performed By: #### L [id number] #### [facility] ([facility]) [address] [place] [address] Neutrophils/100 WBC (Bld) 65.4 % Normal 40.0-72.0 [facility] Comment on above: Performed By: #### L [id number] #### [facility] ([facility]) [address] [place] [address] NRBC (PER 100 WBCS) BY AUTOMATED COUNT 0.0 % Normal 0 [facility] Comment on above: Performed By: #### L [id number] #### [facility] ([facility]) [address] [place] [address] PLATELETS (10*3/UL) IN BLOOD AUTOMATED COUNT 202 10*3/uL Normal 150-400 [facility] Comment on above: Performed By: #### L [id number] #### [facility] ([facility]) [address] [place] [address] RBC (Bld) [#/Vol] 4.54 10*6/uL Normal 4.20-5.70 [facility] Comment on above: Performed By: #### L [id number] #### [facility] ([facility]) [address] [place] [address] WBC (Bld) [#/Vol] 7.34 10*3/uL Normal 4.00-10.60 [facility] Comment on above: Performed By: #### L [id number] #### [facility] ([facility]) [address] [address] CONSULTon 02-13-2024 CONSULT ------ -- Attestation signed by Fabricio Mendoza MD at 02/13/2024 9:32 PM By using the attestations below, the [...] be an additional personal documentation from me. Pt has ckd stage 3, his kidney function is at baseline. I discussed with him lengthy the risk of CLOVIS with very low risk of potential need to start dialysis should his kidney function declined. Recommend gentle IV hydration before LHC. Continue to follow peripherally. -- Nephrology Consult Note Patient : Lani Lizama; 73 y.o. Location: [facility]3/3123-01 Attending: Aramis Sellers MD Admit Date: 02/13/2024 Hospital Day: 0 Reason for Consult: CKD. History of Present Illness: Lani Lizama is a 73 y.o. male with a apst medical history significant for CKD 3A, CAD s/p CABGX5 and recent PCI 08/2023, HFrEF 15-20% s/p Biv-ICD, hypertension, hyperlipidemia, type 2 diabetes mellitus, peripheral vascular disease, and CKD stage III who presented as a transferred from [facility] with NSTEMI. Cardiology planning for cath later today. Patient seen and examined at bedside this morning. Hemodynamically stable and afebrile. No chest pain reported. Discussed our concerns about kidney function after contrast with cardiac cath. Review of Systems: Review of Systems Constitutional: Negative for chills, fatigue and fever. HENT: Negative for congestion, sneezing and sore throat. Eyes: Negative for pain, discharge and itching. Respiratory: Negative for cough, choking, chest tightness, shortness of breath and wheezing. Cardiovascular: Negative for chest pain, palpitations and leg swelling. Gastrointestinal: Negative for abdominal distention, abdominal pain, constipation, diarrhea, nausea and vomiting. Genitourinary: Negative for dysuria, flank pain and hematuria. Musculoskeletal: Negative for back pain, myalgias and neck pain. Neurological: Negative for dizziness, seizures, weakness, light-headedness and headaches. Psychiatric/Behavioral: Negative for agitation, behavioral problems and confusion. Input/Output: I/O last 3 completed shifts: In: 21.2 (0.3 mL/kg) [I.V.:21.2 (0.3 mL/kg)] Out: - (0 mL/kg) Weight: 78 kg Vital Signs: Temperature: Temp: 36.1 ???C (97 ???F) TMax: Temp (24hrs), Av.2 ???C (97.2 ???F), Min:35.9 ???C (96.6 ???F), Max:36.5 ???C (97.7 ???F) Respirations: Resp: 16 Pulse: Heart Rate: 83 BP: BP: 133/68 BP Range: Systolic (24hrs), Av , Min:104 , Max:147 Diastolic (24hrs), Av, Min:59, Max:85 Wt Readings from Last 3 Encounters: 02/13/24 78 kg (172 lb) 10/07/23 80.7 kg (178 lb) 09/28/23 78.9 kg (174 lb) Physical Examination: Physical Exam Vitals and nursing note reviewed. Constitutional: General: He is not in acute distress. Appearance: Normal appearance. HENT: Head: Normocephalic and atraumatic. Mouth/Throat: Mouth: Mucous membranes are moist. Eyes: Extraocular Movements: Extraocular movements intact. Conjunctiva/sclera: Conjunctivae normal. Pupils: Pupils are equal, round, and reactive to light. Cardiovascular: Rate and Rhythm: Normal rate and regular rhythm. Pulses: Normal pulses. Heart sounds: Normal heart sounds. No murmur heard. Pulmonary: Effort: Pulmonary effort is normal. Breath sounds: Normal breath sounds. No wheezing. Abdominal: General: Abdomen is flat. There is no distension. Palpations: Abdomen is soft. Tenderness: There is no abdominal tenderness. Musculoskeletal: General: Normal range of motion. Cervical back: Normal range of motion and neck supple. Right lower leg: No edema. Left lower leg: No edema. Skin: General: Skin is warm and dry. Neurological: General: No focal deficit present. Mental Status: He is alert and oriented to person, place, and time. Mental status is at baseline. Cranial Nerves: No cranial nerve deficit. Sensory: No sensory deficit. Motor: No weakness. Psychiatric: Mood and Affect: Mood normal. Behavior: Behavior normal. Thought Content: Thought content normal. Judgment: Judgment normal. Labs: Chemistry: Lab Results Component Value Date NA 138 02/13/2024 K 4.3 02/13/2024 CL 107 02/13/2024 CO2 25 02/13/2024 CO2 26 10/15/2018 ANIONGAP 10 02/13/2024 BUN 20 02/13/2024 CREATININE 1.61 (H) 02/13/2024 EGFR 45.2 (L) 02/13/2024 GLU 89 10/15/2018 CALCIUM 8.9 02/13/2024 MG 2.0 02/13/2024 ALBUMIN 4.3 09/26/2023 PROT 7.4 09/26/2023 AST 50 (H) 08/31 (more content not included)... [facility] CONSULT ------ -- Attestation signed by Yfn Yost MD at 02/14/2024 4:30 PM By using the attestations below, the [...] be an additional personal documentation from me. Additional Comments: coronary angiogram did not reveal any new culprit lesion Overall, optimal medical therapy is recommended Patient has high risk including severe CAD with prior CABG, CKD, diabetes, HFrEF He needs aggressive medical therapy For ACS I recommend aspirin 81 mg daily, Plavix 75 mg daily, and Xarelto 2.5 mg twice daily Xarelto was new medication and is indicated based on COMPASS trial Can drop aspirin or Plavix in 1 month continue and optimize medical therapy for HFrEF and diabetes and CKD in outpatient setting Continue crestor -- Cardiology Consult Note Reason for Consult: Chest pain HPI: Lani Lizama is a 73 y.o. male CAD s/p CABGX5 and recent PCI 08/2023, HFrEF 15-20% s/p Biv-ICD, hypertension, hyperlipidemia, type 2 diabetes mellitus, peripheral vascular disease, and CKD stage III who presented as a transferred from [facility] with NSTEMI. The patient complained of retrosternal pressure like chest pain worse with exertion yesterday. Patient was at home after work and he stated that he was just walking when the pain started. Chest pain resolved with nitroglycerin and then re happened again. He took nitroglycerin 5 times before presenting to the emergency department. At [facility] high sensitive troponin was 23 and repeat was 85. The patient was transferred as a case of an NSTEMI. The patient was started on heparin drip and nitro drip. When he arrived to [facility] he was chest pain-free. Troponin this morning 3.34. EKG did not reveal any signs of ischemia. Creatinine 1.6. Cardiology were consulted for NSTEMI Patient was seen and examined this morning. He was hemodynamically stable, afebrile, and saturating well on room air. The patient reports that he does not have any chest pain this morning. He was on nitro and heparin drip. We discussed with him the plan for coronary angiogram and he was agreeable. Cardiology ROS: Negative except as mentioned. Past Medical History He has a past medical history of Carotid artery stenosis, Coronary artery disease, Diabetes mellitus (CMS/HCC), Hyperlipidemia, Hypertension, PVD (peripheral vascular disease) (CMS/HCC), and Third degree heart block (CMS/[facility]). Surgical History He has a past surgical [...] 1 tablet every day by oral route. cholecalciferol (VITAMIN D3) 1,000 Units, oral, Daily clopidogrel (Plavix) 75 mg tablet 1 tablet, oral, Daily docusate sodium (COLACE) 100 mg, oral, Daily empagliflozin (Jardiance) 10 mg Take 1 tablet every day by oral route. insulin aspart (NovoLOG) 100 unit/mL injection vial subcutaneous, 4 times daily before meals and nightly, Sliding scale insulin detemir (Levemir) 100 unit/mL injection subcutaneous, 3 times daily with meals, Pt states he takes 7 units with each meal isosorbide mononitrate ER (IMDUR) 60 mg, oral, 2 times daily lisinopril 2.5 mg tablet TAKE 1 TABLET BY MOUTH IN THE MORNING AND AT BEDTIME loratadine (CLARITIN) 10 mg, oral, Daily metoprolol succinate XL (Toprol-XL) 100 mg 24 hr tablet TAKE 1 TABLET BY MOUTH IN THE MORNING DO NOT CRUSH OR CHEW metoprolol succinate XL (TOPROL-XL) 50 mg, oral, Daily, Do not crush or chew. multivitamin capsule 1 capsule, oral, Daily RT nitroglycerin (Nitrostat) 0.[address] 1 TABLET UNDER TONGUE EVERY 5 MINS, UP TO 3 DOSES NEEDED FOR CHEST PAIN pantoprazole (Pr (more content not included)... [facility] HP 02-13-2024 ------ -- Attestation signed by Parul Pena MD at 02/17/2024 3:51 PM s -- H&P reviewed. The patient has significant CAD with hx of grafts and graft intervention. He presents with NSTEMI. We will proceed with Cors/Graft angiogram to evaluate for obstructive CAD. The procedure was explained to the patient. The risks and benefits of the procedure were explained to the patient who showed understanding and with full capacity elected to proceed with the procedure. All questions were addressed and answered. Jenny Fernandez MD [employer] - [id number] [facility] MAGNESIUMon 02-13-2024 Magnesium [Mass/Vol] 2.0 mg/dL Normal 1.9-2.7 [facility] Comment on above: Performed By: #### L [id number] #### [facility] ([facility]) [address] [place] [address] POCT GLUCOSE METER UNSOLICIT ED RESULTSon 02-13-2024 Glucose [Mass/Vol] 200 mg/dL High 70-105 [facility] Comment on above: Order Comment: Waive d Testing in the ED is performed under the ED CLIA certificate #[id number]. Result Comment: roberto macias Performed By: #### L [id number] #### [facility] ([facility]) [address] [place] [address] Glucose [Mass/Vol] 187 mg/dL High 70-105 [facility] Comment on above: Order Comment: Check anti-Xa level every 6 hours while on heparin infusion, or per protocol. Result Comment: iseg [email or web address] Performed By: #### L [id number] #### [facility] ([facility]) [address] [place] [address] Glucose [Mass/Vol] 141 mg/dL High 70-105 [facility] Comment on above: Order Comment: Waive d Testing in the ED is performed under the ED CLIA certificate #[id number]. Result Comment: [email or web address] Performed By: #### L [id number] #### [facility] ([facility]) [address] [place] [address] Glucose [Mass/Vol] 166 mg/dL High 70-105 [facility] Comment on above: Order Comment: Waive d Testing in the ED is performed under the ED CLIA certificate #[id number]. Result Comment: nita cordon Performed By: #### L [id number] #### [facility] ([facility]) [address] [place] [address] PROTIME-INRon 02-13-2024 INR IN PPP BY COAGULATION ASSAY 1.17 High 0.90-1.10 [facility] Comment on above: Result Comment: ACCC P [...] RANGE. CHEST 1995;108:[id number]. Performed By: #### L [id number] #### [facility] ([facility]) [address] [place] [address] PROTHROMBIN TIME (PT) IN PPP BY COAGULATION ASSAY 14.9 Seconds High 12.3-14.8 [facility] Comment on above: Performed By: #### L [id number] #### [facility] ([facility]) [address] [place] [address] TROPONIN Ion 02-13-2024 Troponin I.cardiac [Mass/Vol] 2.02 ng/mL Critically high 0.00-0.04 [facility] Comment on above: Result Comment: M-SD EVIOUS CRITICAL RESULT Previous result verified on 02/13/2024 0606 on specimen/case [id number] called with component Troponin I for procedure Troponin I with value 3.34 ng/mL. Performed By: #### L [id number] #### [facility] ([facility]) [address] [place] [address] Troponin I.cardiac [Mass/Vol] 2.10 ng/mL Critically high 0.00-0.04 [facility] Comment on above: Result Comment: M-SD EVIOUS CRITICAL RESULT Previous result verified on 02/13/2024 0606 on specimen/case [id number] called with component Troponin I for procedure Troponin I with value 3.34 ng/mL. Performed By: #### L [id number] #### [facility] ([facility]) [address] [place] [address] Troponin I.cardiac [Mass/Vol] 3.34 ng/mL Critically high 0.00-0.04 [facility] Comment on above: Result Comment: M-TR OPONIN INITIAL CRITICAL HIGH; RESPUN AND RETESTED Performed By: #### L [id number] #### [facility] ([facility]) [address] [place] [address] Activated partial thrombopla stin time (aPTT) in platelet poor plasma by coagulation aon 02-12-2024 aPTT Coag (PPP) [Time] Activated partial thromboplastin time (aPTT) in platelet poor plasma by coagulation a 22.3-36.2 [facility] Basophils Auto (Bld) [#/Vol] on 02-12-2024 Basophils (Bld) [#/Vol] Automated basophil count 0.0-0.1 [facility] Basophils/100 WBC Auto (Bld) on 02-12-2024 Basophils/100 WBC (Bld) Automated basophil % 0.2-2.0 [facility] Eosinophils/100 WBC Auto (Bl d)on 02-12-2024 Eosinophils/100 WBC (Bld) Automated eosinophil % 0.9-7.0 [facility] Erythrocyte distribution wid th Auto (RBC) [Ratio]on 02-12-2024 Erythrocyte distribution width (RBC) [Ratio] Erythrocyte distribution width [Ratio] by Automated count 11.0-15.0 [facility] Estimated glomerular filtrat ion rate (GFR) non- Americanon 02-12-2024 GFR/1.73 sq M.predicted among non-blacks MDRD (S/P/Bld) [Vol rate/Area] Estimated glomerular filtration rate (GFR) non- Low >=60 mL/min/1.7 3m 2 [facility] Hematocrit Auto (Bld) [Volum e fraction]on 02-12-2024 Hematocrit (Bld) [Volume fraction] Hematocrit [Volume Fraction] of Blood by Automated count 42.0-54.0 [facility] Hemoglobin [Mass/volume] in Bloodon 02-12-2024 Hemoglobin (Bld) [Mass/Vol] Hemoglobin [Mass/volume] in Blood 14.0-18.0 [facility] INR in Platelet poor plasma by Coagulation assayon 02-12-2024 INR Coag (PPP) [Relative time] INR in Platelet poor plasma by Coagulation assay [facility] Comment on above: DESIRED INR:2.0-3.0 CONDITIONS NOT LISTED BELOW2.5-3.5 FOR PROSTHETIC HEART VALVE REPLACEMENT2.5-3.5 RECURRENT THROMBOSIS Laboratory - Chemistry and C hemistry - challengeon 02-12-2024 Calcium [Mass/Vol] 9.4 mg/dL 8.5-10.1 [facility] Chloride [Moles/Vol] 106 mmol/L 98-107 [facility] CO2 [Moles/Vol] 22.9 mmol/L 21.0-32.0 [facility] Creatinine [Mass/Vol] 1.97 mg/dL High 0.70-1.30 [facility] GFR/1.73 sq M.predicted MDRD (S/P/Bld) [Vol rate/Area] 41 mL/min/{1.73_m2} Low >=60 mL/min/1.7 3m 2 [facility] Glucose [Mass/Vol] 236 mg/dL High 74-106 [facility] Potassium [Moles/Vol] 3.9 mmol/L 3.5-5.1 [facility] Comment on above: SPECIMEN SLIGHTLY HE MOLYZED Sodium [Moles/Vol] 141 mmol/L 136-145 [facility] Urea nitrogen [Mass/Vol] 21.0 mg/dL High 7.0-18.0 [facility] Urea nitrogen/Creatinine [Mass ratio] 10.7 mg/mg [facility] Laboratory - Hematology and Cell countson 02-12-2024 Immature granulocytes/100 WBC (Bld) 0.5 % 0.0-0.5 [facility] Leukocytes [#/volume] correc soraya for nucleated erythrocytes in Blood by Automated counon 02-12-2024 WBC corrected for nucl RBC Auto (Bld) [#/Vol] Leukocytes [#/volume] corrected for nucleated erythrocytes in Blood by Automated coun 4.0-11.0 [facility] Lymphocytes Auto (Bld) [#/Vo l]on 02-12-2024 Lymphocytes (Bld) [#/Vol] Lymphocytes [#/volume] in Blood by Automated count 1.2-3.8 [facility] Lymphocytes/100 WBC Auto (Bl d)on 02-12-2024 Lymphocytes/100 WBC (Bld) Lymphocytes/100 leukocytes in Blood by Automated count 20.5-60.0 [facility] MCH Auto (RBC) [Entitic mass ]on 02-12-2024 MCH (RBC) [Entitic mass] MCH [Entitic mass] by Automated count 25.9-34.0 [facility] MCHC Auto (RBC) [Mass/Vol]on 02-12-2024 MCHC (RBC) [Mass/Vol] MCHC [Mass/volume] by Automated count 29.9-35.2 [facility] MCV Auto (RBC) [Entitic vol] on 02-12-2024 MCV (RBC) [Entitic vol] MCV [Entitic volume] by Automated count 80.0-94.0 [facility] Monocytes Auto (Bld) [#/Vol] on 02-12-2024 Monocytes (Bld) [#/Vol] Automated blood monocyte count 0.3-0.8 [facility] Monocytes/100 WBC Auto (Bld) on 02-12-2024 Monocytes/100 WBC (Bld) Automated monocyte % 1.7-12.0 [facility] Neutrophils Auto (Bld) [#/Vo l]on 02-12-2024 Neutrophils (Bld) [#/Vol] Neutrophils [#/volume] in Blood by Automated count 1.4-6.5 [facility] Neutrophils/100 WBC Auto (Bl d)on 02-12-2024 Neutrophils/100 WBC (Bld) Automated neutrophil % 43.0-75.0 [facility] No Panel Informationon 02-11 Troponin I High Sensitivity 85.0 pg/mL Critically high 4.0-76.1 [facility] Comment on above: RESULTS CALLED TO SHAHRAM PERKINS RN at 2223CUT-OFF POINTS HAVE BEEN ESTABLISHED BASED ON THE FOURTHUNIVERSAL DEFINITION OF MYOCARDIAL INFARCTION. THE UPPERREFERENCE LIMIT (URL) OF TROPONIN, DEFINED THE 99THPERCENTILE OF cTnI DISTRIBUTION IN A REFERENCE POPULATION,HAS BEEN CONFIRMED THE DECISION THRESHOLD FOR MIDIAGNOSIS.99TH PERCENTILE = 76.2 PG/MLNOTE: HIGH-SENSITIVITY TROPONIN ASSAY IS NOT INTENDED TO BEUSED IN ISOLATION BUT SHOULD BE INTERPRETED IN CONJUNCTIONWITH OTHER DIAGNOSTIC AND CLINICAL INFORMATION. Eosinophils # (Auto) 0.2 10 3/uL 0.0-0.7 [facility] Immature Granulocyte # (Auto) 0.04 10 3/uL High 0.00-0.03 [facility] Platelet mean volume Auto (B ld) [Entitic vol]on 02-12-2024 Platelet mean volume (Bld) [Entitic vol] Platelet mean volume [Entitic volume] in Blood by Automated count 9.5-13.5 [facility] Platelets Auto (Bld) [#/Vol] on 02-12-2024 Platelets (Bld) [#/Vol] Platelets [#/volume] in Blood by Automated count 150-450 [facility] Prothrombin time (PT)on 01-30 PT Coag (PPP) [Time] Prothrombin time (PT) 9.0- 11.6 [facility] RBC Auto (Bld) [#/Vol]on RBC (Bld) [#/Vol] Erythrocytes [#/volu me] in Blood by Automated count 4.70-6.10 [facility] Serum or plasma anion gap de terminationon 02-12-2024 Anion gap [Moles/Vol] Serum or plasma an ion gap determination [facility] Erythrocyte distribution wid th Auto (RBC) [Ratio]on 12-30-2023 Erythrocyte distribution width (RBC) [Ratio] 14.3 % 11.0-15.0 [facility] Estimated glomerular filtrat ion rate (GFR) non- Americanon 12-30-2023 GFR/1.73 sq M.predicted among non-blacks MDRD (S/P/Bld) [Vol rate/Area] 31 mL/min/{1.73_m2} Low >=60 [facility] Hematocrit Auto (Bld) [Volum e fraction]on 12-30-2023 Hematocrit (Bld) [Volume fraction] 45.2 % 42.0-54.0 [facility] Hemoglobin [Mass/volume] in Bloodon 12-30-2023 Hemoglobin (Bld) [Mass/Vol] 14.8 g/dL 14.0-18.0 [facility] Laboratory - Chemistry and C hemistry - challengeon 12-30-2023 Albumin [Mass/Vol] 3.8 g/dL 3.4-5.0 [facility] Calcium [Mass/Vol] 9.9 mg/dL 8.5-10.1 [facility] Chloride [Moles/Vol] 103 mmol/L 98-107 [facility] CO2 [Moles/Vol] 27.9 mmol/L 21.0-32.0 [facility] Creatinine [Mass/Vol] 2.10 mg/dL High 0.70-1.30 [facility] GFR/1.73 sq M.predicted MDRD (S/P/Bld) [Vol rate/Area] 38 mL/min/{1.73_m2} Low >=60 [facility] Glucose [Mass/Vol] 207 mg/dL High 74-106 [facility] Magnesium [Mass/Vol] 2.1 mg/dL 1.8-2.4 [facility] Potassium [Moles/Vol] 4.7 mmol/L 3.5-5.1 [facility] Sodium [Moles/Vol] 137 mmol/L 136-145 [facility] Urate [Mass/Vol] 4.1 mg/dL 3.5-7.2 [facility] Urea nitrogen [Mass/Vol] 29.0 mg/dL High 7.0-18.0 [facility] Urea nitrogen/Creatinine [Mass ratio] 13.8 mg/mg [facility] Laboratory - Urinalysison Protein (U) [Mass/Vol] 26.9 mg/dL High <=11.9 [facility] Leukocytes [#/volume] correc soraya for nucleated erythrocytes in Blood by Automated counon 12-30-2023 WBC corrected for nucl RBC Auto (Bld) [#/Vol] 8.7 10 3/uL 4.0-11.0 [facility] MCH Auto (RBC) [Entitic mass ]on 12-30-2023 MCH (RBC) [Entitic mass] 30.0 pg 25.9-34.0 [facility] MCHC Auto (RBC) [Mass/Vol]on 12-30-2023 MCHC (RBC) [Mass/Vol] 32.7 g/dL 29.9-35.2 [facility] MCV Auto (RBC) [Entitic vol] on 12-30-2023 MCV (RBC) [Entitic vol] 91.7 fL 80.0-94.0 [facility] No Panel Informationon 12-29 25-Hydroxy Vitamin D Total 47.5 ng/mL [facility] Comment on above: <20 ng/mL Vit D defi cient20-<30 ng/mL Vit D [id number] ng/mL Vit D sufficient>100 ng/mL Potential Toxicity Parathyroid Hormone (Intact) 27 pg/mL 15-65 [facility] Comment on above: Performed at: - [facility] [address] [id number] Director: Kwaku Park PhD, Phone: [phone] Phosphorus Level 3.7 mg/dL 2.6-4.7 [facility] Urine Random Creatinine 85.11 mg/dL 20.00-300. 00 [facility] Platelet mean volume Auto (B ld) [Entitic vol]on 09-30-2024 Platelet mean volume (Bld) [Entitic vol] 9.3 fL Low 9.5-13.5 [facility] Platelets Auto (Bld) [#/Vol] on 12-30-2023 Platelets (Bld) [#/Vol] 193 10 3/uL 150-450 [facility] RBC Auto (Bld) [#/Vol]on RBC (Bld) [#/Vol] 4.93 10 6/uL 4.70-6.10 [facility] Serum or plasma anion gap de terminationon 12-30-2023 Anion gap [Moles/Vol] 10.8 mmol/L [facility] Urine protein/creatinine rat ioon 12-30-2023 Protein/Creatinine (U) [Ratio] 0.32 [facility] HbA1c HPLC (Bld) [Mass fract ion]on 10-17-2023 HbA1c (d) [Mass fraction] 7.5 % [facility] No Panel Informationon 10-16 Bedside Glucose 108 [facility] Office Visiton 10-07-2023 Follow-up visit [id number] Lani Lizama 1950 M Date Provider Department Center 10/07/2023 271-P[facility] Luis Enrique Armas Family History Problem Relation Age of Onset Heart attack Mother Other Father Other Brother Heart attack Maternal Grandmother Heart attack Maternal Grandfather Family Status - Relation Status Age at Mother Father Brother Maternal Grandmother Maternal Grandfather Level of Service:44153 SD OFFICE/OUTPATIENT ESTABLISHED LOW MDM 20 MIN Normal [facility] 30on 09-28-2023 30 The patient is Moder [...] to stop on the way home. Normal [facility] BASIC METABOLIC PANELon 06-2 Anion gap [Moles/Vol] 13 mmol/L Normal 7-20 [facility] Comment on above: Performed By: #### L [id number] #### [facility] ([facility]) [address] [place] [address] Calcium [Mass/Vol] 8.8 mg/dL Normal 8.6-10.3 [facility] Comment on above: Performed By: #### L [id number] #### [facility] ([facility]) [address] [facility] [place] [address] Chloride [Moles/Vol] 104 mmol/L Normal 98-107 [facility] Comment on above: Performed By: #### L [id number] #### [facility] ([facility]) [address] [facility] [place] [address] CO2 [Moles/Vol] 24 mmol/L Normal 21-31 [facility] Comment on above: Performed By: #### L [id number] #### [facility] ([facility]) [address] [facility] [place] [address] Creatinine [Mass/Vol] 1.59 mg/dL High 0.70-1.30 [facility] Comment on above: Performed By: #### L [id number] #### [facility] ([facility]) [address] [place] [address] GLOMERULAR FILTRATION RATE ML/MIN/1.73 SQ M.PREDICTED 46.1 mL/min/1.73m*2 Low >60.0 [facility] Comment on above: Result Comment: The [facility]???s estimated glomerular filtration rate (eGFR) will no [...] group of individuals. Performed By: #### L [id number] #### [facility] ([facility]) [address] [place] [address] Glucose [Mass/Vol] 188 mg/dL High 70-100 [facility] Comment on above: Performed By: #### L [id number] #### [facility] ([facility]) [address] [place] [address] Potassium [Moles/Vol] 4.1 mmol/L Normal 3.5-5.1 [facility] Comment on above: Performed By: #### L [id number] #### [facility] ([facility]) [address] [place] [address] Sodium [Moles/Vol] 137 mmol/L Normal 136-145 [facility] Comment on above: Performed By: #### L [id number] #### [facility] ([facility]) [address] [place] [address] Urea nitrogen [Mass/Vol] 26 mg/dL High 7-25 [facility] Comment on above: Performed By: #### L [id number] #### [facility] ([facility]) [address] [place] [address] UREA NITROGEN/CREATININE (MASS RATIO) IN SER/PLAS 16.4 Normal [facility] Comment on above: Performed By: #### L [id number] #### [facility] ([facility]) [address] [place] [address] CBCon 09-28-2023 Erythrocyte distribution width (RBC) [Ratio] 14.2 % Normal 11.5-15.0 [facility] Comment on above: Performed By: #### L [id number] #### [facility] ([facility]) [address] [place] [address] ERYTHROCYTE MEAN CORPUSCULAR HEMOGLOBIN CONCENTRATION (G/DL) BY AUTOMATED 33.2 g/dL Normal 32.0-35.0 [facility] Comment on above: Performed By: #### L [id number] #### [facility] ([facility]) [address] [place] [address] Hematocrit (Bld) [Volume fraction] 43.4 % Normal 39.0-55.0 [facility] Comment on above: Performed By: #### L [id number] #### [facility] ([facility]) [address] [place] [address] Hemoglobin (Bld) [Mass/Vol] 14.4 g/dL Normal 13.0-17.0 [facility] Comment on above: Performed By: #### L [id number] #### [facility] ([facility]) [address] [place] [address] MCH (RBC) [Entitic mass] 28.4 pg Normal 27.0-33.0 [facility] Comment on above: Performed By: #### L [id number] #### [facility] ([facility]) [address] [place] [address] MCV (RBC) [Entitic vol] 85.6 fL Normal 82.0-98.0 [facility] Comment on above: Performed By: #### L [id number] #### [facility] ([facility]) [address] [place] [address] PLATELETS (10*3/UL) IN BLOOD AUTOMATED COUNT 159 10*3/uL Normal 150-400 [facility] Comment on above: Performed By: #### L [id number] #### [facility] ([facility]) [address] [place] [address] RBC (Bld) [#/Vol] 5.07 10*6/uL Normal 4.20-5.70 [facility] Comment on above: Performed By: #### L [id number] #### [facility] [address] [place] [address] WBC (Bld) [#/Vol] 7.88 10*3/uL Normal 4.00-10.60 [facility] Comment on above: Performed By: #### L [id number] #### [facility] ([facility]) [address] [place] [address] POCT GLUCOSE METER UNSOLICIT ED RESULTSon 09-28-2023 Glucose [Mass/Vol] 176 mg/dL High 70-105 [facility] Comment on above: Order Comment: Waive d Testing in the ED is performed under the ED CLIA certificate #[id number]. Result Comment: [email or web address] Performed By: #### L [id number] #### [facility] ([facility]) [address] [place] [address] 30on 09-27-2023 30 Problem: Pain - Adul [...] shift include stable VS, cardiac cath Normal [facility] 30 Daily Case Managemen t Update Multidisciplinary rounds have been completed. Barriers to Discharge: Patient is a direct [place], due chest pain and elevated troponin. Tx to [facility], most recent Cardiology consulted and [...] Level of Consultation Consultation and Management 09/26/23 1713 Normal [facility] 30 The patient is Moder ately Unstable [...] and maintained or improved Outcome: Progressing Normal [facility] ANTI-XA (HEPARIN LEVEL)on HEPARIN UNFRACTIONATED (U/ML) IN PPP BY CHROMOGENIC METHOD 0.47 IU/mL Normal 0.3-0.7 [facility] Comment on above: Order Comment: Waive d Testing in the ED is performed under the ED CLIA certificate #[id number]. Result Comment: Rhona roxaban and Apixaban will interfere with the anti Xa assay used to monitor UFH and LMWH. Performed By: #### L [id number] #### [facility] ([facility]) [address] [place] [address] HEPARIN UNFRACTIONATED (U/ML) IN PPP BY CHROMOGENIC METHOD 0.55 IU/mL Normal 0.3-0.7 [facility] Comment on above: Order Comment: Check anti-Xa level every 6 hours while on heparin infusion, or per protocol. Result Comment: [place] roxaban and Apixaban will interfere with the anti Xa assay used to monitor UFH and LMWH. Performed By: #### L [id number] #### [facility] ([facility]) [address] [place] [address] BASIC METABOLIC PANELon 08-31 Anion gap [Moles/Vol] 16 mmol/L Normal 7-20 [facility] Comment on above: Performed By: #### L [id number] #### [facility] ([facility]) [address] [place] [address] Calcium [Mass/Vol] 9.2 mg/dL Normal 8.6-10.3 [facility] Comment on above: Performed By: #### L [id number] #### [facility] ([facility]) [address] [place] [address] Chloride [Moles/Vol] 105 mmol/L Normal 98-107 [facility] Comment on above: Performed By: #### L [id number] #### [facility] ([facility]) [address] [place] [address] CO2 [Moles/Vol] 23 mmol/L Normal 21-31 [facility] Comment on above: Performed By: #### L [id number] #### [facility] ([facility]) [address] [place] [address] Creatinine [Mass/Vol] 1.56 mg/dL High 0.70-1.30 [facility] Comment on above: Performed By: #### L [id number] #### [facility] ([facility]) [address] [place] [address] GLOMERULAR FILTRATION RATE ML/MIN/1.73 SQ M.PREDICTED 47.2 mL/min/1.73m*2 Low >60.0 [facility] Comment on above: Result Comment: The [facility]???s estimated glomerular filtration rate (eGFR) will no [...] group of individuals. Performed By: #### L [id number] #### [facility] ([facility]) [address] [place] [address] Glucose [Mass/Vol] 166 mg/dL High 70-100 [facility] Comment on above: Performed By: #### L [id number] #### [facility] ([facility]) [address] [place] [address] Potassium [Moles/Vol] 4.3 mmol/L Normal 3.5-5.1 [facility] Comment on above: Performed By: #### L [id number] #### [facility] ([facility]) [address] [place] [address] Sodium [Moles/Vol] 140 mmol/L Normal 136-145 [facility] Comment on above: Performed By: #### L [id number] #### [facility] ([facility]) [address] [place] [address] Urea nitrogen [Mass/Vol] 26 mg/dL High 7-25 [facility] Comment on above: Performed By: #### L [id number] #### [facility] ([facility]) [address] [place] [address] UREA NITROGEN/CREATININE (MASS RATIO) IN SER/PLAS 16.7 Normal [facility] Comment on above: Performed By: #### L [id number] #### [facility] ([facility]) [address] [place] [address] CBCon 09-27-2023 Erythrocyte distribution width (RBC) [Ratio] 14.4 % Normal 11.5-15.0 [facility] Comment on above: Performed By: #### L [id number] #### [facility] ([facility]) [address] [place] [address] ERYTHROCYTE MEAN CORPUSCULAR HEMOGLOBIN CONCENTRATION (G/DL) BY AUTOMATED 33.1 g/dL Normal 32.0-35.0 [facility] Comment on above: Performed By: #### L [id number] #### [facility] ([facility]) [address] [place] [address] Hematocrit (Bld) [Volume fraction] 46.2 % Normal 39.0-55.0 [facility] Comment on above: Performed By: #### L [id number] #### [facility] ([facility]) [address] [place] [address] Hemoglobin (Bld) [Mass/Vol] 15.3 g/dL Normal 13.0-17.0 [facility] Comment on above: Performed By: #### L [id number] #### [facility] ([facility]) [address] [place] [address] MCH (RBC) [Entitic mass] 28.7 pg Normal 27.0-33.0 [facility] Comment on above: Performed By: #### L [id number] #### [facility] ([facility]) [address] [place] [address] MCV (RBC) [Entitic vol] 86.7 fL Normal 82.0-98.0 [facility] Comment on above: Performed By: #### L [id number] #### [facility] ([facility]) [address] [place] [address] PLATELETS (10*3/UL) IN BLOOD AUTOMATED COUNT 158 10*3/uL Normal 150-400 [facility] Comment on above: Performed By: #### L [id number] #### [facility] ([facility]) [address] [place] [address] RBC (Bld) [#/Vol] 5.33 10*6/uL Normal 4.20-5.70 [facility] Comment on above: Performed By: #### L [id number] #### [facility] ([facility]) [address] [place] [address] WBC (Bld) [#/Vol] 7.95 10*3/uL Normal 4.00-10.60 [facility] Comment on above: Performed By: #### L [id number] #### [facility] ([facility]) [address] [place] [address] CONSULTon 09-27-2023 CONSULT Cardiology Consult N rabia [...] with elevated troponin consistent with non-ST elevation UT. The patient has known history of coronary [...] will try to introduce Andrew Fierro MD, FACC REASON FOR CONSULT Reason for Consult: [email or web address] SUBJECTIVE HPI: Lani Lizama is a 72 y/o male with a significant PMHx for HFpEF (NYHA class 3), coronary artery disease [s/p 5 vessel CABG (patient reports CABG performed in 1995), 7 stents with most recent cath in Dec 2022], DM2, hyperlipidemia, peripheral vascular disease, 3rd degree heart block (s/p BiV ENGINEERING AIDE-D) that presented to outside hospital w/ c/o chest pain that radiated to left arm and jaw. Pain was described as centrally-located and pressure-like, and unrelieved by Nitroglycerin x3. Patient started on nitroglycerin drip which provided relief. Initial high sensitivity troponin was unremarkable, but repeat was elevated (2962). He was started on heparin and transferred to [facility] for further evaluation. We were consulted [...] (CMS/HCC), Hyperlipidemia, Hypertension, PVD (peripheral vascular disease) ([facility]), and Third degree heart block ([facility]). Surgical History He has a past surgical [...] insulin dete (more content not included)... Normal [facility] HPon 09-27-2023 HP H&P reviewed. The pa deedee was interviewed and examined. 72 y/o male with a significant PMHx for HFpEF (NYHA class 3), coronary artery disease [s/p 5 vessel CABG (patient reports CABG performed in 1995), 7 stents with most recent cath in Dec 2022 with patent grafts x4], DM2, hyperlipidemia, peripheral vascular disease, 3rd degree heart block (s/p BiV ENGINEERING AIDE-D) that presented to outside hospital w/ c/o chest pain found to have NSTEM (trop peak at 4.2) Will proceed with coronary and grafts angiogram for further assessment. Procedure's details, risks and benefits discussed with the patient and he's agreeable. [facility] LIPID PANELon 09-27-2023 CHOL/HDL 3.5 mg/dL [facility] Comment on above: Performed By: #### L [id number] #### [facility] ([facility]) [address] [place] [address] Cholesterol [Mass/Vol] 108 mg/dL Low 120-200 [facility] Comment on above: Performed By: #### L [id number] #### [facility] ([facility]) [address] [place] [address] Magnesium [Mass/Vol] 148 mg/dL Normal 40-149 [facility] Comment on above: Result Comment: TRIG LYCERIDE REFERENCE RANGE: 20 YEARS AND OLDER CARDIOVASCULAR RISK LESS THAN 150 mg/dL LOW RISK 150 TO 199 mg/dL BORDERLINE RISK 200 mg/dL AND GREATER HIGH RISK Performed By: #### L [id number] #### [facility] ([facility]) [address] [place] [address] Magnesium [Mass/Vol] 47 mg/dL Normal 0-160 [facility] Comment on above: Performed By: #### L [id number] #### [facility] ([facility]) [address] [place] [address] Magnesium [Mass/Vol] 31 mg/dL Normal 23-92 [facility] Comment on above: Performed By: #### L [id number] #### [facility] ([facility]) [address] [place] [address] NON HDL CHOL. (LDL+VLDL) 77 Normal [facility] Comment on above: Performed By: #### L [id number] #### [facility] ([facility]) [address] [place] [address] TOTAL VLDL-C 30 mg/dL Normal 0-40 [facility] Comment on above: Performed By: #### L [id number] #### [facility] ([facility]) [address] [place] [address] POCT GLUCOSE METER UNSOLICIT ED RESULTSon 09-27-2023 Glucose [Mass/Vol] 299 mg/dL High 70-105 [facility] Comment on above: Order Comment: Waive d Testing in the ED is performed under the ED CLIA certificate #[id number]. Result Comment: roberto macias Performed By: #### L [id number] #### [facility] ([facility]) [address] [place] [address] Glucose [Mass/Vol] 140 mg/dL High 70-105 [facility] Comment on above: Order Comment: Waive d Testing in the ED is performed under the ED CLIA certificate #[id number]. Result Comment: [email or web address] Performed By: #### L [id number] #### [facility] ([facility]) [address] [place] [address] Glucose [Mass/Vol] 193 mg/dL High 70-105 [facility] Comment on above: Order Comment: Waive d Testing in the ED is performed under the ED CLIA certificate #[id number]. Result Comment: martin solano Performed By: #### L [id number] #### [facility] ([facility]) [address] [place] [address] Glucose [Mass/Vol] 184 mg/dL High 70-105 [facility] Comment on above: Order Comment: Waive d Testing in the ED is performed under the ED CLIA certificate #[id number]. Result Comment: martin solano Performed By: #### L [id number] #### [facility] ([facility]) [address] [place] [address] TROPONIN Ion 09-27-2023 Troponin I.cardiac [Mass/Vol] 3.05 ng/mL Critically high 0.00-0.04 [facility] Comment on above: Result Comment: M-SD EVIOUS CRITICAL RESULT Previous result verified on 09/27/2023 0117 on specimen/case [id number] called with component Troponin I for procedure Troponin I with value 3.51 ng/mL. Performed By: #### L [id number] #### [facility] ([facility]) [address] [place] [address] 30on 09-26-2023 30 The patient is Moder ately Stable - Low risk of patient condition declining or worsening The patient's goals for the shift include Comfort/Rest The clinical goals for the shift include stable vital signs Normal [facility] ANTI-XA (HEPARIN LEVEL)on HEPARIN UNFRACTIONATED (U/ML) IN PPP BY CHROMOGENIC METHOD 0.82 IU/mL High 0.3-0.7 [facility] Comment on above: Order Comment: Waive d Testing in the ED is performed under the ED CLIA certificate #[id number]. Result Comment: Rhona roxaban and Apixaban will interfere with the anti Xa assay used to monitor UFH and LMWH. Performed By: #### L [id number] #### [facility] ([facility]) [address] [place] [address] APTTon 09-26-2023 ACTIVATED PARTIAL THROMBOPLASTIN TIME IN PPP BY COAGULATION ASSAY 34.7 Seconds Normal 25.0-35.0 [facility] Comment on above: Order Comment: Basel ine aPTT before initiating heparin infusion. Result Comment: Clin ical significance of the APTT is questionable in the presence of heparin. Performed By: #### L [id number] #### [facility] ([facility]) [address] [place] [address] Activated partial thrombopla stin time (aPTT) in platelet poor plasma by coagulation aon 09-26-2023 aPTT Coag (PPP) [Time] 28.8 s 22.3-36.2 [facility] Basophils Auto (Bld) [#/Vol] on 09-26-2023 Basophils (Bld) [#/Vol] 0.1 10 3/uL 0.0-0.1 [facility] Basophils/100 WBC Auto (Bld) on 09-26-2023 Basophils/100 WBC (Bld) 0.6 % 0.2-2.0 [facility] CBCon 09-26-2023 Erythrocyte distribution width (RBC) [Ratio] 14.3 % Normal 11.5-15.0 [facility] Comment on above: Performed By: #### L [id number] #### [facility] ([facility]) [address] [place] [address] ERYTHROCYTE MEAN CORPUSCULAR HEMOGLOBIN CONCENTRATION (G/DL) BY AUTOMATED 33.1 g/dL Normal 32.0-35.0 [facility] Comment on above: Performed By: #### L [id number] #### [facility] ([facility]) [address] [place] [address] Hematocrit (Bld) [Volume fraction] 48.7 % Normal 39.0-55.0 [facility] Comment on above: Performed By: #### L [id number] #### [facility] ([facility]AKER) [address] [place] [address] Hemoglobin (Bld) [Mass/Vol] 16.1 g/dL Normal 13.0-17.0 [facility] Comment on above: Performed By: #### L [id number] #### [facility] (BEAKER) [address] [place] [address] MCH (RBC) [Entitic mass] 28.8 pg Normal 27.0-33.0 [facility] Comment on above: Performed By: #### L [id number] #### [facility] (BEAKER) [address] [place] [address] MCV (RBC) [Entitic vol] 87.0 fL Normal 82.0-98.0 [facility] Comment on above: Performed By: #### L [id number] #### [facility] [address] [place] [address] PLATELETS (10*3/UL) IN BLOOD AUTOMATED COUNT 170 10*3/uL Normal 150-400 [facility] Comment on above: Performed By: #### L [id number] #### [facility] ([facility]) [address] [place] [address] RBC (Bld) [#/Vol] 5.60 10*6/uL Normal 4.20-5.70 [facility] Comment on above: Performed By: #### L [id number] #### [facility] ([facility]) [address] [place] [address] WBC (Bld) [#/Vol] 7.75 10*3/uL Normal 4.00-10.60 [facility] Comment on above: Performed By: #### L [id number] #### [facility] ([facility]) [address] [place] [address] COMPREHENSIVE METABOLIC PANE Mike 09-26-2023 Albumin [Mass/Vol] 4.3 g/dL Normal 3.5-5.7 [facility] Comment on above: Performed By: #### L [id number] #### [facility] [address] [place] [address] ALP [Catalytic activity/Vol] 100 U/L Normal 34-104 [facility] Comment on above: Performed By: #### L [id number] #### [facility] ([facility]) [address] [place] [address] ALT [Catalytic activity/Vol] 20 U/L Normal 7-52 [facility] Comment on above: Performed By: #### L [id number] #### [facility] ([facility]) [address] [place] [address] Anion gap [Moles/Vol] 15 mmol/L Normal 7-20 [facility] Comment on above: Performed By: #### L [id number] #### [facility] (BEAKER) [address] [place] [address] AST [Catalytic activity/Vol] 50 U/L High 13-39 [facility] Comment on above: Performed By: #### L [id number] #### [facility] (BEAKER) [address] [place] [address] Bilirubin [Mass/Vol] 1.1 mg/dL High 0.3-1.0 [facility] Comment on above: Performed By: #### L [id number] #### [facility] (BEAKER) [address] [place] [address] Calcium [Mass/Vol] 9.4 mg/dL Normal 8.6-10.3 [facility] Comment on above: Performed By: #### L [id number] #### [facility] ([facility]) [address] [place] [address] Chloride [Moles/Vol] 104 mmol/L Normal 98-107 [facility] Comment on above: Performed By: #### L [id number] #### [facility] ([facility] [address] [place] [address] CO2 [Moles/Vol] 26 mmol/L Normal 21-31 [facility] Comment on above: Performed By: #### L [id number] #### [facility] (BEAKER) [address] [place] [address] Creatinine [Mass/Vol] 1.45 mg/dL High 0.70-1.30 [facility] Comment on above: Performed By: #### L [id number] #### [facility] ([facility]) [address] [place] [address] GLOMERULAR FILTRATION RATE ML/MIN/1.73 SQ M.PREDICTED 51.5 mL/min/1.73m*2 Low >60.0 [facility] Comment on above: Result Comment: The [facility]???s estimated glomerular filtration rate (eGFR) will no [...] group of individuals. Performed By: #### L [id number] #### [facility] ([facility]) [address] [place] [address] Glucose [Mass/Vol] 141 mg/dL High 70-100 [facility] Comment on above: Performed By: #### L [id number] #### [facility] ([facility]) [address] [place] [address] Potassium [Moles/Vol] 4.2 mmol/L Normal 3.5-5.1 [facility] Comment on above: Performed By: #### L [id number] #### [facility] ([facility]) [address] [place] [address] Protein [Mass/Vol] 7.4 g/dL Normal 6.0-8.3 [facility] Comment on above: Performed By: #### L [id number] #### [facility] ([facility]) [address] [place] [address] Sodium [Moles/Vol] 141 mmol/L Normal 136-145 [facility] Comment on above: Performed By: #### L [id number] #### [facility] ([facility]) [address] [place] [address] Urea nitrogen [Mass/Vol] 24 mg/dL Normal 7-25 [facility] Comment on above: Performed By: #### L [id number] #### [facility] ([facility]) [address] [place] [address] UREA NITROGEN/CREATININE (MASS RATIO) IN SER/PLAS 16.6 Normal [facility] Comment on above: Performed By: #### L [id number] #### [facility] ([facility]ER) [address] [place] [address] Eosinophils/100 WBC Auto (Bl d)on 09-26-2023 Eosinophils/100 WBC (Bld) 2.4 % 0.9-7.0 [facility] Erythrocyte distribution wid th Auto (RBC) [Ratio]on 09-26-2023 Erythrocyte distribution width (RBC) [Ratio] 14.3 % 11.0-15.0 [facility] Estimated glomerular filtrat ion rate (GFR) non- Americanon 09-26-2023 GFR/1.73 sq M.predicted among non-blacks MDRD (S/P/Bld) [Vol rate/Area] 39 mL/min/{1.73_m2} Low >=60 [facility] Globulin Calc (S) [Mass/Vol] on 09-26-2023 Globulin (S) [Mass/Vol] 4.0 g/dL [facility] HPon 09-26-2023 HP History Of Present I [place] Lani Lizama is a 72 y.o. male presenting with patient is a 72-year-old gentleman with history of coronary atherosclerosisChest pain. 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 Patient woke up with chest pain around [...] wasstarted on heparin and was transferred to [facility] for further cares. Creatinine was 1.7. [...] disease) (CMS/HCC), and Third degree heart block (CMS/[facility]). Surgical History He has a past surgical [...] obtained and is negative except per the [facility] Last Recorded Vitals Visit Vitals BP 134/78 (BP Location: Right arm, Patient Position: Sitting) Pulse 83 Temp 36.7 ???C (98.1 ???F) (Temporal) Resp 19 Ht 1.702 m (5' 7 ) Wt 79.9 kg (176 lb 3.2 oz) BMI 27.60 kg/m??? Smoking Status Former BSA 1.94 m??? GENERAL: The patient is well developed and nontoxic (more content not included)... Normal [facility] Hematocrit Auto (Bld) [Volum e fraction]on 09-26-2023 Hematocrit (Bld) [Volume fraction] 49.4 % 42.0-54.0 [facility] Hemoglobin [Mass/volume] in Bloodon 09-26-2023 Hemoglobin (Bld) [Mass/Vol] 16.0 g/dL 14.0-18.0 [facility] INR in Platelet poor plasma by Coagulation assayon 09-26-2023 INR Coag (PPP) [Relative time] 0.99 {INR} [facility] Comment on above: DESIRED INR:2.0-3.0 CONDITIONS NOT LISTED BELOW2.5-3.5 FOR PROSTHETIC HEART VALVE REPLACEMENT2.5-3.5 RECURRENT THROMBOSIS LACTIC ACID WITH 4 HOUR REFL EXon 09-26-2023 LACTATE (MMOL/L) IN SER/PLAS 1.1 mmol/L Normal 0.5-2.2 [facility] Comment on above: Performed By: #### L [id number] #### [facility] ([facility]ER) [address] [place] [address] Laboratory - Chemistry and C hemistry - challengeon 09-26-2023 Albumin [Mass/Vol] 4.1 g/dL 3.4-5.0 [facility] ALP [Catalytic activity/Vol] 146 U/L High 46-116 [facility] ALT [Catalytic activity/Vol] 32 U/L 16-63 [facility] AST [Catalytic activity/Vol] 26 U/L 15-37 [facility] Bilirubin [Mass/Vol] 0.7 mg/dL 0.2-1.0 [facility] Calcium [Mass/Vol] 9.2 mg/dL 8.5-10.1 [facility] Chloride [Moles/Vol] 104 mmol/L 98-107 [facility] CO2 [Moles/Vol] 24.8 mmol/L 21.0-32.0 [facility] Creatinine [Mass/Vol] 1.72 mg/dL High 0.70-1.30 [facility] GFR/1.73 sq M.predicted MDRD (S/P/Bld) [Vol rate/Area] 48 mL/min/{1.73_m2} Low >=60 [facility] Glucose [Mass/Vol] 206 mg/dL High 74-106 [facility] Potassium [Moles/Vol] 4.2 mmol/L 3.5-5.1 [facility] Protein [Mass/Vol] 8.1 g/dL 6.4-8.2 [facility] Sodium [Moles/Vol] 141 mmol/L 136-145 [facility] Urea nitrogen [Mass/Vol] 26.0 mg/dL High 7.0-18.0 [facility] Urea nitrogen/Creatinine [Mass ratio] 15.1 mg/mg [facility] Laboratory - Hematology and Cell countson 09-26-2023 Immature granulocytes/100 WBC (Bld) 0.3 % 0.0-0.5 [facility] Leukocytes [#/volume] correc soraya for nucleated erythrocytes in Blood by Automated counon 09-26-2023 WBC corrected for nucl RBC Auto (Bld) [#/Vol] 10.5 10 3/uL 4.0-11.0 [facility] Lymphocytes Auto (Bld) [#/Vo l]on 09-26-2023 Lymphocytes (Bld) [#/Vol] 2.0 10 3/uL 1.2-3.8 [facility] Lymphocytes/100 WBC Auto (Bl d)on 09-26-2023 Lymphocytes/100 WBC (Bld) 18.7 % Low 20.5-60.0 [facility] MCH Auto (RBC) [Entitic mass ]on 09-26-2023 MCH (RBC) [Entitic mass] 28.4 pg 25.9-34.0 [facility] MCHC Auto (RBC) [Mass/Vol]on 09-26-2023 MCHC (RBC) [Mass/Vol] 32.4 g/dL 29.9-35.2 [facility] MCV Auto (RBC) [Entitic vol] on 09-26-2023 MCV (RBC) [Entitic vol] 87.7 fL 80.0-94.0 [facility] Monocytes Auto (Bld) [#/Vol] on 09-26-2023 Monocytes (Bld) [#/Vol] 0.8 10 3/uL 0.3-0.8 [facility] Monocytes/100 WBC Auto (Bld) on 09-26-2023 Monocytes/100 WBC (Bld) 7.3 % 1.7-12.0 [facility] Neutrophils Auto (Bld) [#/Vo l]on 09-26-2023 Neutrophils (Bld) [#/Vol] 7.4 10 3/uL High 1.4-6.5 [facility] Neutrophils/100 WBC Auto (Bl d)on 09-26-2023 Neutrophils/100 WBC (Bld) 70.7 % 43.0-75.0 [facility] No Panel Informationon 09-25 Troponin I High Sensitivity 8614.2 pg/mL High 4.0-76.1 [facility] Comment on above: RESULTS CALLED TO DR REYEZ/HOSSEINUT-OFF POINTS HAVE BEEN ESTABLISHED BASED ON THE FOURTHUNIVERSAL DEFINITION OF MYOCARDIAL INFARCTION. THE UPPERREFERENCE LIMIT (URL) OF TROPONIN, DEFINED THE 99THPERCENTILE OF cTnI DISTRIBUTION IN A REFERENCE POPULATION,HAS BEEN CONFIRMED THE DECISION THRESHOLD FOR MIDIAGNOSIS.99TH PERCENTILE = 76.2 PG/MLNOTE: HIGH-SENSITIVITY TROPONIN ASSAY IS NOT INTENDED TO BEUSED IN ISOLATION BUT SHOULD BE INTERPRETED IN CONJUNCTIONWITH OTHER DIAGNOSTIC AND CLINICAL INFORMATION. Eosinophils # (Auto) 0.3 10 3/uL 0.0-0.7 [facility] Immature Granulocyte # (Auto) 0.03 10 3/uL 0.00-0.03 [facility] POCT GLUCOSE METER UNSOLICIT ED RESULTSon 09-26-2023 Glucose [Mass/Vol] 286 mg/dL High 70-105 [facility] Comment on above: Order Comment: Waive d Testing in the ED is performed under the ED CLIA certificate #[id number]. Result Comment: roberto macias Performed By: #### L [id number] #### [facility] ([facility]AKER) [address] [place] [address] Glucose [Mass/Vol] 151 mg/dL High 70-105 [facility] Comment on above: Order Comment: Waive d Testing in the ED is performed under the ED CLIA certificate #[id number]. Result Comment: [email or web address] [email or web address] Performed By: #### L [id number] #### [facility] (BEAKER) [address] [place] [address] Platelet mean volume Auto (B ld) [Entitic vol]on 09-26-2023 Platelet mean volume (Bld) [Entitic vol] 10.0 fL 9.5-13.5 [facility] Platelets Auto (Bld) [#/Vol] on 09-26-2023 Platelets (Bld) [#/Vol] 194 10 3/uL 150-450 [facility] Prothrombin time (PT)on 08-31 PT Coag (PPP) [Time] 10.5 s 9.0-11.6 [facility] RBC Auto (Bld) [#/Vol]on RBC (Bld) [#/Vol] 5.63 10 6/uL 4.70-6.10 [facility] Serum or plasma albumin/glob ulin mass ratioon 09-26-2023 Albumin/Globulin [Mass ratio] 1.0 {ratio} [facility] Serum or plasma anion gap de terminationon 09-26-2023 Anion gap [Moles/Vol] 16.4 mmol/L [facility] Ion 09-26-2023 Troponin I.cardiac [Mass/Vol] 3.51 ng/mL Critically high 0.00-0.04 [facility] Comment on above: Result Comment: M-SD EVIOUS CRITICAL RESULT Previous result verified on 09/26/2023 2309 on specimen/case [id number] called with component Troponin I for procedure Troponin I with value 3.41 ng/mL. Performed By: #### L [id number] #### [facility] (AKER) [address] [place] [address] Troponin I.cardiac [Mass/Vol] 3.41 ng/mL Critically high 0.00-0.04 [facility] Comment on above: Result Comment: M-SD EVIOUS CRITICAL RESULT Previous result verified on 09/26/2023 1926 on specimen/case [id number] called with component Troponin I for procedure Troponin I with value 4.22 ng/mL. Performed By: #### L [id number] #### [facility] (BEAKER) [address] [place] [address] Troponin I.cardiac [Mass/Vol] 4.22 ng/mL Critically high 0.00-0.04 [facility] Comment on above: Result Comment: ADILIA BRYANT INITIAL CRITICAL HIGH; RESPUN AND RETESTED Performed By: #### L [id number] #### [facility] ([facility]AKER) [address] [place] [address] Office Visiton 09-09-2023 Follow-up visit [id number] Lani Lizama 1950 M Date Provider Department Center 09/09/2023 271-PINKY BISHOP CARD [facility] Family History Problem Relation Age of Onset Heart attack Mother Other Father Other Brother Heart attack Maternal Grandmother Heart attack Maternal Grandfather Family Status - Relation Status Age at Mother Father Brother Maternal Grandmother Maternal Grandfather Level of Service:13384 SD OFFICE/OUTPATIENT ESTABLISHED MOD MDM 30 MIN Normal [facility] No Panel Informationon 08-26 Prostate Specific Antigen Screen 1.37 ng/mL <=4.00 [facility] Erythrocyte distribution wid th Auto (RBC) [Ratio]on 06-24-2023 Erythrocyte distribution width (RBC) [Ratio] 14.6 % 11.0-15.0 [facility] Estimated glomerular filtrat ion rate (GFR) non- Americanon 06-24-2023 GFR/1.73 sq M.predicted among non-blacks MDRD (S/P/Bld) [Vol rate/Area] 38 mL/min/{1.73_m2} >=60 [facility] Hematocrit Auto (Bld) [Volum e fraction]on 06-24-2023 Hematocrit (Bld) [Volume fraction] 46.2 % 42.0-54.0 [facility] Hemoglobin [Mass/volume] in Bloodon 06-24-2023 Hemoglobin (Bld) [Mass/Vol] 14.5 g/dL 14.0-18.0 [facility] Laboratory - Chemistry and C hemistry - challengeon 06-24-2023 Albumin [Mass/Vol] 4.0 g/dL 3.4-5.0 [facility] Calcium [Mass/Vol] 9.2 mg/dL 8.5-10.1 [facility] Chloride [Moles/Vol] 106 mmol/L 98-107 [facility] CO2 [Moles/Vol] 25.4 mmol/L 21.0-32.0 [facility] Creatinine [Mass/Vol] 1.76 mg/dL 0.70-1.30 [facility] GFR/1.73 sq M.predicted MDRD (S/P/Bld) [Vol rate/Area] 47 mL/min/{1.73_m2} >=60 [facility] Glucose [Mass/Vol] 212 mg/dL 74-106 [facility] Magnesium [Mass/Vol] 2.1 mg/dL 1.8-2.4 [facility] Potassium [Moles/Vol] 4.5 mmol/L 3.5-5.1 [facility] Sodium [Moles/Vol] 142 mmol/L 136-145 [facility] Urate [Mass/Vol] 4.3 mg/dL 3.5-7.2 [facility] Urea nitrogen [Mass/Vol] 30.0 mg/dL 7.0-18.0 [facility] Urea nitrogen/Creatinine [Mass ratio] 17.0 mg/mg [facility] Laboratory - Urinalysison Protein (U) [Mass/Vol] 11.5 mg/dL <=11.9 [facility] Leukocytes [#/volume] correc soraya for nucleated erythrocytes in Blood by Automated counon 06-24-2023 WBC corrected for nucl RBC Auto (Bld) [#/Vol] 9.6 10 3/uL 4.0-11.0 [facility] MCH Auto (RBC) [Entitic mass ]on 06-24-2023 MCH (RBC) [Entitic mass] 28.5 pg 25.9-34.0 [facility] MCHC Auto (RBC) [Mass/Vol]on 06-24-2023 MCHC (RBC) [Mass/Vol] 31.4 g/dL 29.9-35.2 [facility] MCV Auto (RBC) [Entitic vol] on 06-24-2023 MCV (RBC) [Entitic vol] 90.8 fL 80.0-94.0 [facility] No Panel Informationon 06-23 25-Hydroxy Vitamin D Total 42.5 ng/mL [facility] Comment on above: <20 ng/mL Vit D defi cient20-<30 ng/mL Vit D pssmrupvodex23-754 ng/mL Vit D sufficient>100 ng/mL Potential Toxicity Parathyroid Hormone (Intact) 48 pg/mL 15-65 [facility] Comment on above: Performed at: - [employer] [id number] Director: Kwaku Park PhD, Phone: [phone] Phosphorus Level 3.6 mg/dL 2.6-4.7 [facility] Urine Random Creatinine 60.60 mg/dL 20.00-300. 00 [facility] Platelet mean volume Auto (B ld) [Entitic vol]on 06-24-2023 Platelet mean volume (Bld) [Entitic vol] 10.2 fL 9.5-13.5 [facility] Platelets Auto (Bld) [#/Vol] on 06-24-2023 Platelets (Bld) [#/Vol] 178 10 3/uL 150-450 [facility] RBC Auto (Bld) [#/Vol]on RBC (Bld) [#/Vol] 5.09 10 6/uL 4.70-6.10 [facility] Serum or plasma anion gap de terminationon 06-24-2023 Anion gap [Moles/Vol] 15.1 mmol/L [facility] Urine protein/creatinine rat ioon 06-24-2023 Protein/Creatinine (U) [Ratio] 0.19 [facility] HbA1c HPLC (Bld) [Mass fract ion]on 06-18-2023 HbA1c (Bld) [Mass fraction] 6.1 % [facility] No Panel Informationon 06-17 Bedside Glucose 150 [facility] Cholesterol in LDL Calc [Mas s/Vol]on 06-13-2023 Cholesterol in LDL [Mass/Vol] 29.0 mg/dL [facility] Comment on above: <100 mg/dl [id number] 0-129 mg/dl NEAR OR ABOVE [id number] mg/dl BORDERLINE [id number] mg/dl HIGH>190 mg/dl VERY HIGH Cholesterol in VLDL Calc [Ma ss/Vol]on 06-13-2023 Cholesterol in VLDL [Mass/Vol] 24.8 mg/dL [facility] Laboratory - Chemistry and C hemistry - challengeon 06-13-2023 Cholesterol [Mass/Vol] 87 mg/dL <=200 [facility] Cholesterol in HDL [Mass/Vol] 34 mg/dL 40-60 [facility] Comment on above: > or =60 mg/dl - LOW CARDIOVASCULAR RISK<40 mg/dl - HIGH CARDIOVASCULAR RISK Triglyceride [Mass/Vol] 124 mg/dL <=150 [facility] Serum or plasma total choles terol/high density lipoprotein (HDL) cholesterol mass yulia 06-13-2023 Cholesterol.total/Cho lesterol in HDL [Mass ratio] 2.6 {ratio} [facility] Comment on above: 3.3 - 4.4 LOW RISK4. 4 - 7.1 AVERAGE RISK7.1 - 11.0 MODERATE RISK>11.0 HIGH RISK Office Visiton 05-07-2023 Follow-up visit [id number] Lani Lizama 1950 [facility] Provider Department Center 05/07/2023 KEVIN DEMPSEY MARCELINO Armas Family History Problem Relation Age of Onset Heart attack Mother Other Father Other Brother Heart attack Maternal Grandmother Heart attack Maternal Grandfather Family Status - Relation Status Age at Mother Father Brother Maternal Grandmother Maternal Grandfather Level of Service:88915 SD OFFICE/OUTPATIENT ESTABLISHED LOW MDM 20 MIN Normal [facility] Office Visiton 04-30-2023 Follow-up visit [id number] Lani Lizama 1950 Date Provider Department Center 04/30/2023 LAILA MCBRIDE MARCELINO Armas Family History Problem Relation Age of Onset Heart attack Mother Other Father Other Brother Heart attack Maternal Grandmother Heart attack Maternal Grandfather Family Status - Relation Status Age at Mother Father Brother Maternal Grandmother Maternal Grandfather Level of Service:31075 SD OFFICE/OUTPATIENT ESTABLISHED MOD MDM 30 MIN Normal [facility] A1C HEMOGLOBINon 03-12-2023 HbA1c (Bld) [Mass fraction] 7.1 % [employer] Other Glucose - FINGER STICKon Glucose [Mass/Vol] 151 mg/dL [employer] Other HbA1c (Bld) [Mass fraction]o n 03-12-2023 A1C HEMOGLOBIN [employer] Other CT CHEST WO CONon 08-09-2022 CT CHEST [...] by: HAZEL SCHILLING Date: 2022-08-09 14:00 Normal [facility] A1C HEMOGLOBINon 06-26-2022 HbA1c (Bld) [Mass fraction] 7.4 % [employer] Other Glucose - FINGER STICKon Glucose [Mass/Vol] 267 mg/dL [employer] Other HbA1c (Bld) [Mass fraction]o n 06-26-2022 A1C HEMOGLOBIN [employer] Other PTH INTACTon 06-26-2022 PTH, Intact 37 pg/mL Normal 15-65 [facility] Comment on above: Performed By: #### C MP, CMADM #### [facility] [address] [place] [address] Dr. Mirza Sadler FERRITINon 06-25-2022 Ferritin [Mass/Vol] 269.0 ng/mL Normal 26.0-388.0 [facility] Comment on above: Performed By: #### B OPENSTACK CLOUD CONSULTING ARCHITECT #### [facility] [address] [place] [address] Dr. Mirza Sadler HEMOGRAM AND PLATELon 2022 Hematocrit (Bld) [Volume fraction] 44.7 % Normal 42.0-54.0 [facility] Comment on above: Performed By: #### P T, PTT #### [facility] [address] [place] [address] Dr. Mirza Sadler Hemoglobin (Bld) [Mass/Vol] 15.1 g/dL Normal 14.0-18.0 [facility] Comment on above: Performed By: #### P T, PTT #### [facility] [address] [place] [address] Dr. Mirza Sadler MCH (RBC) [Entitic mass] 30.0 pg Normal 25.9-34.0 [facility] Comment on above: Performed By: #### P T, PTT #### [facility] [address] [place] [address] Dr. Mirza Sadler MCHC (RBC) [Mass/Vol] 33.8 g/dL Normal 29.9-35.2 [facility] Comment on above: Performed By: #### P T, PTT #### [facility] [address] [place] [address] Dr. Mirza Sadler MCV (RBC) [Entitic vol] 88.9 fL Normal 80.0-94.0 [facility] Comment on above: Performed By: #### P T, PTT #### [facility] [address] [address] [address] Mirza Sadler PLT 199 103/ul Normal 150-450 [facility] Comment on above: Performed By: #### P T, PTT #### [facility] [address] [place] [address] Dr. Mirza Sadler RBC 5.03 106/ul Normal 4.70-6.10 [facility] Comment on above: Performed By: #### P T, PTT #### [facility] [address] [address] [address] Mirza Sadler WBC 8.7 103/ul Normal 4.0-11.0 [facility] Comment on above: Performed By: #### P T, PTT #### [facility] [address] [place] [address] Dr. Mirza Sadler IRON AND TIBCon 06-25-2022 % SATURATION 28.6 % Normal [facility] Comment on above: Performed By: #### B OPENSTACK CLOUD CONSULTING ARCHITECT #### [facility] [address] [place] [address] Dr. Mirza Sadler Iron [Mass/Vol] 82.0 ug/dL Normal 65.0-175.0 [facility] Comment on above: Performed By: #### B OPENSTACK CLOUD CONSULTING ARCHITECT #### [facility] [address] [place] [address] Dr. Mirza Sadler TIBC DIRECT 287.0 ug/dL Normal 250.0-450. 0 [facility] Comment on above: Performed By: #### B [employer]CHITECT #### [facility] [address] [place] [address] Dr. Mirza Sadler MAGNESIUMon 06-25-2022 Magnesium [Mass/Vol] 2.0 mg/dL Normal 1.8-2.4 [facility] Comment on above: Performed By: #### B [employer] CONSULTING ARCHITECT #### [facility] [address] [place] [address] Dr. Mirza Sadler RENAL FUNCTION PANELon 06-25 Albumin [Mass/Vol] 4.2 g/dL Normal 3.4-5.0 [facility] Comment on above: Performed By: #### B [employer] CONSULTING ARCHITECT #### [facility] [address] [address] [address] Mirza Sadler Calcium [Mass/Vol] 9.3 mg/dL Normal 8.5-10.1 [facility] Comment on above: Performed By: #### B [employer] CONSULTING ARCHITECT #### [facility] [address] [address] [address] Mirza Sadler Chloride [Moles/Vol] 108 mmol/L Critically high 98-107 [facility] Comment on above: Performed By: #### B [employer] CONSULTING ARCHITECT #### [facility] [address] [address] [address] Mirza Sadler CO2 [Moles/Vol] 29.5 mmol/L Normal 21.0-32.0 [facility] Comment on above: Performed By: #### B [employer] CONSULTING ARCHITECT #### [facility] [address] [place] [address] Dr. Mirza Sadler Creatinine [Mass/Vol] 1.87 mg/dL Critically high 0.70-1.30 [facility] Comment on above: Performed By: #### B [employer] CONSULTING ARCHITECT #### [facility] [address] [address] [address] Mirza Sadler EGFR-AF [place] 43 mL/min/1.73m2 Critically low >=60 [facility] Comment on above: Performed By: #### B [employer] CONSULTING ARCHITECT #### [facility] [address] [place] [address] Dr. Mirza Sadler EGFR-NON AF [place] 36 mL/min/1.73m2 Critically low >=60 [facility] Comment on above: Performed By: #### B [employer] CONSULTING ARCHITECT #### [facility] [address] [address] [address] Mirza Sadler Glucose [Mass/Vol] 181 mg/dL Critically high 74-106 [facility] Comment on above: Performed By: #### B [employer] CONSULTING ARCHITECT #### [facility] [address] [address] [address] Mirza Sadler Phosphate [Mass/Vol] 4.8 mg/dL Critically high 2.6-4.7 [facility] Comment on above: Performed By: #### B [employer] CONSULTING ARCHITECT #### [facility] [address] [place] [address] Dr. Mirza Sadler Potassium [Moles/Vol] 4.8 mmol/L Normal 3.5-5.1 [facility] Comment on above: Performed By: #### B [employer] CONSULTING ARCHITECT #### [facility] [address] [place] [address] Dr. Mirza Sadler Sodium [Moles/Vol] 146 mmol/L Critically high 136-145 [facility] Comment on above: Performed By: #### B [employer] CONSULTING ARCHITECT #### [facility] [address] [place] [address] Dr. Mirza Sadler Urea nitrogen [Mass/Vol] 40.0 mg/dL Critically high 7.0-18.0 [facility] Comment on above: Performed By: #### B [employer] CONSULTING ARCHITECT #### [facility] [address] [place] [address] Dr. Mirza Sadler UA RANDOM W/MICROSCOPICon BACTERIA NONE SEEN Normal NONE SEEN [facility] Comment on above: Performed By: #### H STROPN #### [facility] [address] [place] [address] Dr. Mirza Sadler Bilirubin Ql (U) Negative Normal NEGATIVE [facility] Comment on above: Performed By: #### H STROPN #### [facility] [address] [place] [address] Dr. Mirza Sadler CAST NONE SEEN Normal NONE SEEN [facility] Comment on above: Performed By: #### H STROPN #### [facility] [address] [place] [address] Dr. Mirza Sadler Clarity (U) CLEAR Normal CLEAR [facility] Comment on above: Performed By: #### H STROPN #### [facility] [address] [place] [address] Dr. Mirza Sadler Color (U) LT. YELLOW Normal YELLOW [facility] Comment on above: Performed By: #### H STROPN #### [facility] [address] [place] [address] Dr. Mirza Sadler Crystals LM Nom (Urine sed) NONE SEEN Normal NONE SEEN [facility] Comment on above: Performed By: #### H STROPN #### [facility] [address] [address] [address] Mirza Sadler Epithelial cells LM Ql (Urine sed) FEW Abnormal NONE SEEN /RARE [facility] Comment on above: Performed By: #### H STROPN #### [facility] [address] [place] [address] Dr. Mirza Sadler Glucose Ql (U) 500 mg/dl Abnormal NEGATIVE [facility] Comment on above: Performed By: #### H STROPN #### [facility] [address] [place] [address] Dr. Mirza Sadler Hemoglobin Ql (U) Negative Normal NEGATIVE [facility] Comment on above: Performed By: #### H STROPN #### [facility] [address] [place] [address] Dr. Mirza Sadler Ketones Ql (U) Negative Normal NEGATIVE [facility] Comment on above: Performed By: #### H STROPN #### [facility] [address] [place] [address] Dr. Mirza Sadler LEUKOCYTES Negative Normal NEGATIVE [facility] Comment on above: Performed By: #### H STROPN #### [facility] [address] [place] [address] Dr. Mirza Sadler MUCOUS NONE SEEN Normal NONE SEEN [facility] Comment on above: Performed By: #### H STROPN #### [facility] [address] [place] [address] Dr. Mirza Sadler Nitrite Ql (U) Negative Normal NEGATIVE [facility] Comment on above: Performed By: #### H STROPN #### [facility] [address] [place] [address] Dr. Mirza Sadler pH (U) 5.5 [pH] Normal 5-9 [facility] Comment on above: Performed By: #### H STROPN #### [facility] [address] [place] [address] Dr. Mirza Sadler RBC 0-2 Normal 0-2 [facility] Comment on above: Performed By: #### H STROPN #### [facility] [address] [place] [address] Dr. Mirza Sadler SPEC GRAVITY 1.015 Normal 1.005-<=1. 025 [facility] Comment on above: Performed By: #### H STROPN #### [facility] [address] [place] [address] Dr. Mirza Sadler UA PROTEIN Negative Normal NEGATIVE/ TRACE [facility] Comment on above: Performed By: #### H STROPN #### [facility] [address] [place] [address] Dr. Mirza Sadler Urobilinogen Qn (U) 0.2 {Luisito'U}/dL Normal 0.2 - 1. 0 [facility] Comment on above: Performed By: #### H STROPN #### [facility] [address] [place] [address] Dr. Mirza Sadler WBC NONE SEEN Normal NONE SEEN [facility] Comment on above: Performed By: #### H STROPN #### [facility] [address] [place] [address] Dr. Mirza Sadler URIC ACID SERUMon 06-25-2022 Urate [Mass/Vol] 6.1 mg/dL Normal 3.5-7.2 [facility] Comment on above: Performed By: #### B [employer] CONSULTING ARCHITECT #### [facility] [address] [place] [address] Dr. Mirza Sadler URINE T PROTEIN CREAT RATIOo n 06-25-2022 Protein (U) [Mass/Vol] 9.7 mg/dL Normal <=12.0 [facility] Comment on above: Performed By: #### C TEGAN MARIN #### [facility] [address] [place] [address] Dr. Mirza Sadler UR PROT CREAT RAT 0.14 Normal The [facility] Comment on above: Performed By: #### C TEGAN MARIN #### [facility] [address] [place] [address] Dr. Mirza Sadler URINE CREAT 71.45 mg/dL Normal 20.00-300. 00 [facility] Comment on above: Performed By: #### C TEGAN MARIN #### [facility] [address] [place], [place] [id number] Dr. Mirza Sadler VITAMIN D 25 OHon 06-25-2022 VIT D 25-OH 44.7 ng/mL Normal [facility] Comment on above: Performed By: #### E RUR #### [facility] [address] [place] [address] Dr. Mirza Sadler VIT D RANGES SEE BELOW Normal [facility] Comment on above: Result Comment: <20 ng/mL Vit D deficient 20 - <30 ng/mL Vit D insufficient 30 - 100 ng/mL Vit D sufficient >100 ng/mL Potential Toxicity Performed By: #### E RUR #### [facility] [address] [place] [address] Dr. Mirza Sadler LIPID PROFILEon 06-18-2022 CHOL-HDL RATIO NORM SEE BELOW Normal [facility] Comment on above: Result Comment: 3.3 - 4.4 LOW RISK 4.4 - 7.1 AVERAGE RISK 7.1 - 11.0 MODERATE RISK >11.0 HIGH RISK Performed By: #### H STROPN #### [facility] [address] [place] [address] Dr. Mirza Sadler Cholesterol [Mass/Vol] 136 mg/dL Normal <=200 [facility] Comment on above: Performed By: #### H STROPN #### [facility] [address] [place] [address] Dr. Mirza Sadler Cholesterol in HDL [Mass/Vol] 38 mg/dL Critically low 40-60 [facility] Comment on above: Performed By: #### H STROPN #### [facility] [address] [place] [address] Dr. Mirza Sadler Cholesterol in LDL [Mass/Vol] 69.6 mg/dL Normal [facility] Comment on above: Performed By: #### H STROPN #### [facility] [address] [place] [address] Dr. Mirza Sadler Cholesterol.total/Cho lesterol in HDL [Mass ratio] 3.6 {ratio} Normal [facility] Comment on above: Performed By: #### H STROPN #### [facility] [address] [place] [address] Dr. Mirza Sadler HDL NORMAL > or = 60 mg/dl - LO W CARDIOVASCULAR RISK <40 mg/dl - HIGH CARDIOVASCULAR RISK Normal [facility] Comment on above: Performed By: #### H STROPN #### [facility] [address] [address] [address] Mirza Sadler LDL CALC NORMAL SEE BELOW Normal [facility] Comment on above: Result Comment: <100 mg/dl OPTIMAL 100 - 129 mg/dl NEAR OR ABOVE OPTIMAL 130 - 159 mg/dl BORDERLINE HIGH 160 - 189 mg/dl HIGH >190 mg/dl VERY HIGH Performed By: #### H STROPN #### [facility] [address] [address] [address] Mirza Sadler Triglyceride [Mass/Vol] 142 mg/dL Normal <=150 [facility] Comment on above: Performed By: #### H STROPN #### [facility] [address] [address] [address] Mirza Sadler VLDL CALC 28.4 mg/dL Normal [facility] Comment on above: Performed By: #### H STROPN #### [facility] [address] [address] [address] CHEST WO CONon [...] HIGINIO FLANAGAN Date: 2022-06-05 16:58 Normal [facility] CT CHEST WO [facility] [employer] Other PROF CHEM 8 (BAS METB)on Anion gap [Moles/Vol] 10.2 mmol/L Normal [facility] Comment on above: Performed By: #### B [employer]ST[employer]OUD CONSULTING ARCHITECT #### [facility] [address] [place] [address] Dr. Mirza Sadler Calcium [Mass/Vol] 8.9 mg/dL Normal 8.5-10.1 [facility] Comment on above: Performed By: #### B [employer]ST[employer] CLOUD CONSULTING ARCHITECT #### [facility] [address] [place] [address] Dr. Mirza Sadler Chloride [Moles/Vol] 101 mmol/L Normal 98-107 [facility] Comment on above: Performed By: #### B OPENST[employer] CLOUD CONSULTING ARCHITECT #### [facility] [address] [place] [address] Dr. Mirza Sadler CO2 [Moles/Vol] 31.2 mmol/L Normal 21.0-32.0 [facility] Comment on above: Performed By: #### B [employer]D CONSULTING ARCHITECT #### [facility] [address] [place] [address] Dr. Mirza Sadler Creatinine [Mass/Vol] 1.91 mg/dL Critically high 0.70-1.30 [facility] Comment on above: Performed By: #### B [employer]D CONSULTING ARCHITECT #### [facility] [address] [place] [address] Dr. Mirza Sadler EGFR-AF [place] 42 mL/min/1.73m2 Critically low >=60 [facility] Comment on above: Performed By: #### B [employer]OUD CONSULTING ARCHITECT #### [facility] [address] [place] [address] Dr. Mirza Sadler EGFR-NON AF [place] 35 mL/min/1.73m2 Critically low >=60 [facility] Comment on above: Performed By: #### B OPENSTACK CLOUD CONSULTING ARCHITECT #### [facility] [address] [address] [address] Mirza Sadler Glucose [Mass/Vol] 242 mg/dL Critically high 74-106 [facility] Comment on above: Performed By: #### B OPENSTACK CLOUD CONSULTING ARCHITECT #### [facility] [address] [address] [address] Mirza Sadler Potassium [Moles/Vol] 4.4 mmol/L Normal 3.5-5.1 [facility] Comment on above: Performed By: #### B OPENSTACK CLOUD CONSULTING ARCHITECT #### [facility] [address] [place] [address] Dr. Mirza Sadler Sodium [Moles/Vol] 138 mmol/L Normal 136-145 [facility] Comment on above: Performed By: #### B OPENSTACK CLOUD CONSULTING ARCHITECT #### [facility] [address] [place] [address] Dr. Mirza Sadler Urea nitrogen [Mass/Vol] 33.0 mg/dL Critically high 7.0-18.0 [facility] Comment on above: Performed By: #### B OPENSTACK [employer]OUD CONSULTING ARCHITECT #### [facility] [address] [place] [address] Dr. Mirza Sadler Urea nitrogen/Creatinine [Mass ratio] 17.3 mg/mg Normal [facility] Comment on above: Performed By: #### B OPENST[employer]OUD CONSULTING ARCHITECT #### [facility] [address] [place] [address] Dr. Mirza Sadler PROF CHEM 8 (BAS METB)on Anion gap [Moles/Vol] 10.7 mmol/L Normal [facility] Comment on above: Performed By: #### P T, PTT #### [facility] [address] [place] [address] Dr. Mirza Sadler Calcium [Mass/Vol] 8.9 mg/dL Normal 8.5-10.1 [facility] Comment on above: Performed By: #### P T, PTT #### [facility] [address] [place] [address] Dr. Mirza Sadler Chloride [Moles/Vol] 104 mmol/L Normal 98-107 [facility] Comment on above: Performed By: #### P T, PTT #### [facility] [address] [place] [address] Dr. Mirza Sadler CO2 [Moles/Vol] 29.4 mmol/L Normal 21.0-32.0 [facility] Comment on above: Performed By: #### P T, PTT #### [facility] [address] [place] [address] Dr. Mirza Sadler Creatinine [Mass/Vol] 1.75 mg/dL Critically high 0.70-1.30 [facility] Comment on above: Performed By: #### P T, PTT #### [facility] [address] [place] [address] Dr. Mirza Sadler EGFR-AF [place] 47 mL/min/1.73m2 Critically low >=60 [facility] Comment on above: Performed By: #### P T, PTT #### [facility] [address] [place] [address] Dr. Mirza Sadler EGFR-NON AF [place] 39 mL/min/1.73m2 Critically low >=60 [facility] Comment on above: Performed By: #### P T, PTT #### [facility] [address] [place] [address] Dr. Mirza Sadler Glucose [Mass/Vol] 191 mg/dL Critically high 74-106 [facility] Comment on above: Performed By: #### P T, PTT #### [facility] [address] [place] [address] Dr. Mirza Sadler Potassium [Moles/Vol] 4.1 mmol/L Normal 3.5-5.1 [facility] Comment on above: Performed By: #### P T, PTT #### [facility] [address] [place] [address] Dr. Mirza Sadler Sodium [Moles/Vol] 140 mmol/L Normal 136-145 [facility] Comment on above: Performed By: #### P T, PTT #### [facility] [address] [place] [address] Dr. Mirza Sadler Urea nitrogen [Mass/Vol] 31.0 mg/dL Critically high 7.0-18.0 [facility] Comment on above: Performed By: #### P T, PTT #### [facility] [address] [address] [address] Mirza Sadler Urea nitrogen/Creatinine [Mass ratio] 17.7 mg/mg Normal [facility] Comment on above: Performed By: #### P T, PTT #### [facility] [address] [address] [address] Mirza Sadler XR CHEST 2 Von [...] HIGINIO FLANAGAN Date: 2022-03-22 16:12 Normal [facility] A1C HEMOGLOBINon 03-20-2022 HbA1c (Bld) [Mass fraction] 6.7 % [employer] Other Glucose - FINGER STICKon Glucose [Mass/Vol] 193 mg/dL [employer] Other HbA1c (Bld) [Mass fraction]o n 03-20-2022 A1C HEMOGLOBIN [employer] Other BNPon 03-13-2022 Natriuretic peptide B (Bld) [Mass/Vol] 4825.0 pg/mL Critically high <=900.0 [facility] Comment on above: Performed By: #### E RUR #### [facility] [address] [address] [address] Mirza Sadler CBC AUTO DIFFon 03-13-2022 BASO # 0.0 103/ul Normal 0.0-0.1 [facility] Comment on above: Performed By: #### E RUR #### [facility] [address] [place] [address] Dr. Mirza Sadler Basophils/100 WBC (Bld) 0.6 % Normal 0.2-2.0 [facility] Comment on above: Performed By: #### E RUR #### [facility] [address] [place] [address] Dr. Mirza Sadler EO # 0.1 103/ul Normal 0.0-0.7 [facility] Comment on above: Performed By: #### E RUR #### [facility] [address] [place] [address] Dr. Mirza Sadler Eosinophils/100 WBC (Bld) 1.8 % Normal 0.9-7.0 [facility] Comment on above: Performed By: #### E RUR #### [facility] [address] [place] [address] Dr. Mirza Sadler Erythrocyte distribution width (RBC) [Ratio] 14.4 % Normal 11.0-15.0 [facility] Comment on above: Performed By: #### E RUR #### [facility] [address] [place] [address] Dr. Mirza Sadler Hematocrit (Bld) [Volume fraction] 36.1 % Critically low 42.0-54.0 [facility] Comment on above: Performed By: #### E RUR #### [facility] [address] [place] [address] Dr. Mirza Sadler Hemoglobin (Bld) [Mass/Vol] 11.9 g/dL Critically low 14.0-18.0 [facility] Comment on above: Performed By: #### E RUR #### [facility] [address] [place] [address] Dr. Mirza Sadler IG # 0.02 10e3/ul Normal 0.00-0.03 [facility] Comment on above: Performed By: #### E RUR #### [facility] [address] [place] [address] Dr. Mirza Sadler IG % 0.3 % Normal 0.0-0.5 [facility] Comment on above: Performed By: #### E RUR #### [facility] [address] [place] [address] Dr. Mirza Sadler LYMPH # 1.5 103/ul Normal 1.2-3.8 [facility] Comment on above: Performed By: #### E RUR #### [facility] [address] [place] [address] Dr. Mirza Sadler Lymphocytes/100 WBC (Bld) 22.6 % Normal 20.5-60.0 [facility] Comment on above: Performed By: #### E RUR #### [facility] [address] [place] [address] Dr. Mirza Sadler MANUAL DIFF REQ NO Normal [facility] Comment on above: Performed By: #### E RUR #### [facility] [address] [place] [address] Dr. Mirza Sadler MCH (RBC) [Entitic mass] 29.0 pg Normal 25.9-34.0 [facility] Comment on above: Performed By: #### E RUR #### [facility] [address] [place] [address] Dr. Mirza Sadler MCHC (RBC) [Mass/Vol] 33.0 g/dL Normal 29.9-35.2 [facility] Comment on above: Performed By: #### E RUR #### [facility] [address] [place] [address] Dr. Mirza Sadler MCV (RBC) [Entitic vol] 88.0 fL Normal 80.0-94.0 [facility] Comment on above: Performed By: #### E RUR #### [facility] [address] [place] [address] Dr. Mirza Sadler MONO # 0.7 103/ul Normal 0.3-0.8 [facility] Comment on above: Performed By: #### E RUR #### [facility] [address] [address] [address] Mirza Sadler Monocytes/100 WBC (Bld) 10.2 % Normal 1.7-12.0 [facility] Comment on above: Performed By: #### E RUR #### [facility] [address] [place] [address] Dr. Mirza Sadler NEUT # 4.3 103/ul Normal 1.4-6.5 [facility] Comment on above: Performed By: #### E RUR #### [facility] [address] [place] [address] Dr. Mirza Sadler Neutrophils/100 WBC (Bld) 64.5 % Normal 43.0-75.0 [facility] Comment on above: Performed By: #### E RUR #### [facility] [address] [place] [address] Dr. Mirza Sadler Platelet mean volume (Bld) [Entitic vol] 9.7 fL Normal 9.5-13.5 [facility] Comment on above: Performed By: #### E RUR #### [facility] [address] [place] [address] Dr. Mirza Sadler PLT 149 103/ul Critically low 150-450 [facility] Comment on above: Performed By: #### E RUR #### [facility] [address] [place] [address] Dr. Mirza Sadler RBC 4.10 106/ul Critically low 4.70-6.10 [facility] Comment on above: Performed By: #### E RUR #### [facility] [address] [place] [address] Dr. Mirza Sadler WBC 6.6 103/ul Normal 4.0-11.0 [facility] Comment on above: Performed By: #### E RUR #### [facility] [address] [place] [address] Dr. Mirza Sadler PROF CHEM 8 (BAS METB)on Anion gap [Moles/Vol] 14.6 mmol/L Normal [facility] Comment on above: Performed By: #### E RUR #### [facility] [address] [address] [address] Mirza Sadler Calcium [Mass/Vol] 8.5 mg/dL Normal 8.5-10.1 [facility] Comment on above: Performed By: #### E RUR #### [facility] [address] [address] [address] Mirza Sadler Chloride [Moles/Vol] 104 mmol/L Normal 98-107 [facility] Comment on above: Performed By: #### E RUR #### [facility] [address] [address] [address] Mirza Sadler CO2 [Moles/Vol] 22.7 mmol/L Normal 21.0-32.0 [facility] Comment on above: Performed By: #### E RUR #### [facility] [address] [place] [address] Dr. Mirza Sadler Creatinine [Mass/Vol] 1.78 mg/dL Critically high 0.70-1.30 [facility] Comment on above: Performed By: #### E RUR #### [facility] [address] [address] [address] Mirza Sadler EGFR-AF [place] 46 mL/min/1.73m2 Critically low >=60 [facility] Comment on above: Performed By: #### E RUR #### [facility] [address] [place] [address] Dr. Mirza Sadler EGFR-NON AF [place] 38 mL/min/1.73m2 Critically low >=60 [facility] Comment on above: Performed By: #### E RUR #### [facility] [address] [address] [address] Mirza Sadler Glucose [Mass/Vol] 121 mg/dL Critically high 74-106 [facility] Comment on above: Performed By: #### E RUR #### [facility] [address] [address] [address] Mirza Sadler Potassium [Moles/Vol] 3.3 mmol/L Critically low 3.5-5.1 [facility] Comment on above: Performed By: #### E RUR #### [facility] [address] [place] [address] Dr. Mirza Sadler Sodium [Moles/Vol] 138 mmol/L Normal 136-145 [facility] Comment on above: Performed By: #### E RUR #### [facility] [address] [place] [address] Dr. Mirza Sadler Urea nitrogen [Mass/Vol] 30.0 mg/dL Critically high 7.0-18.0 [facility] Comment on above: Performed By: #### E RUR #### [facility] [address] [place] [address] Dr. Mirza Sadler Urea nitrogen/Creatinine [Mass ratio] 16.9 mg/mg Normal [facility] Comment on above: Performed By: #### E RUR #### [facility] [address] [place] [address] Dr. Mirza Sadler BNPon 03-12-2022 Natriuretic peptide B (Bld) [Mass/Vol] 7452.0 pg/mL Critically high <=900.0 [facility] Comment on above: Performed By: #### C MP, CMADM #### [facility] [address] [place] [address] Dr. Mirza Sadler CBC AUTO DIFFon 03-12-2022 BASO # 0.0 103/ul Normal 0.0-0.1 [facility] Comment on above: Performed By: #### P T, PTT #### [facility] [address] [place] [address] Dr. Mirza Sadler Basophils/100 WBC (Bld) 0.4 % Normal 0.2-2.0 [facility] Comment on above: Performed By: #### P T, PTT #### [facility] [address] [place] [address] Dr. Mirza Sadler EO # 0.0 103/ul Normal 0.0-0.7 [facility] Comment on above: Performed By: #### P T, PTT #### [facility] [address] [place] [address] Dr. Mirza Sadler Eosinophils/100 WBC (Bld) 0.2 % Critically low 0.9-7.0 [facility] Comment on above: Performed By: #### P T, PTT #### [facility] [address] [place] [address] Dr. Mirza Sadler Erythrocyte distribution width (RBC) [Ratio] 14.6 % Normal 11.0-15.0 [facility] Comment on above: Performed By: #### P T, PTT #### [facility] [address] [place] [address] Dr. Mirza Sadler Hematocrit (Bld) [Volume fraction] 37.8 % Critically low 42.0-54.0 [facility] Comment on above: Performed By: #### P T, PTT #### [facility] [address] [place] [address] Dr. Mirza Sadler Hemoglobin (Bld) [Mass/Vol] 12.2 g/dL Critically low 14.0-18.0 [facility] Comment on above: Performed By: #### P T, PTT #### [facility] [address] [place] [address] Dr. Mirza Sadler IG # 0.03 10e3/ul Normal 0.00-0.03 [facility] Comment on above: Performed By: #### P T, PTT #### [facility] [address] [place] [address] Dr. Mirza Sadler IG % 0.3 % Normal 0.0-0.5 [facility] Comment on above: Performed By: #### P T, PTT #### [facility] [address] [place] [address] Dr. Mirza Sadler LYMPH # 1.2 103/ul Normal 1.2-3.8 [facility] Comment on above: Performed By: #### P T, PTT #### [facility] [address] [place] [address] Dr. Mirza Sadler Lymphocytes/100 WBC (Bld) 11.5 % Critically low 20.5-60.0 [facility] Comment on above: Performed By: #### P T, PTT #### [facility] [address] [place] [address] Dr. Mirza Sadler MANUAL DIFF REQ NO Normal [facility] Comment on above: Performed By: #### P T, PTT #### [facility] [address] [place] [address] Dr. Mirza Sadler MCH (RBC) [Entitic mass] 29.0 pg Normal 25.9-34.0 [facility] Comment on above: Performed By: #### P T, PTT #### [facility] [address] [place] [address] Dr. Mirza Sadler MCHC (RBC) [Mass/Vol] 32.3 g/dL Normal 29.9-35.2 [facility] Comment on above: Performed By: #### P T, PTT #### [facility] [address] [place] [address] Dr. Mirza Sadler MCV (RBC) [Entitic vol] 89.8 fL Normal 80.0-94.0 [facility] Comment on above: Performed By: #### P T, PTT #### [facility] [address] [place] [address] Dr. Mirza Sadler MONO # 0.7 103/ul Normal 0.3-0.8 [facility] Comment on above: Performed By: #### P T, PTT #### [facility] [address] [place] [address] Dr. Mirza Sadler Monocytes/100 WBC (Bld) 6.8 % Normal 1.7-12.0 [facility] Comment on above: Performed By: #### P T, PTT #### [facility] [address] [place] [address] Dr. Mirza Sadler NEUT # 8.5 103/ul Critically high 1.4-6.5 [facility] Comment on above: Performed By: #### P T, PTT #### [facility] [address] [place] [address] Dr. Mirza Sadler Neutrophils/100 WBC (Bld) 80.8 % Critically high 43.0-75.0 [facility] Comment on above: Performed By: #### P T, PTT #### [facility] [address] [address] [address] Mirza Sadler Platelet mean volume (Bld) [Entitic vol] 9.8 fL Normal 9.5-13.5 [facility] Comment on above: Performed By: #### P T, PTT #### [facility] [address] [address] [address] Mirza Sadler PLT 165 103/ul Normal 150-450 [facility] Comment on above: Performed By: #### P T, PTT #### [facility] [address] [address] [address] Mirza Sadler RBC 4.21 106/ul Critically low 4.70-6.10 [facility] Comment on above: Performed By: #### P T, PTT #### [facility] [address] [address] [address] Mirza Sadler WBC 10.5 103/ul Normal 4.0-11.0 [facility] Comment on above: Performed By: #### P T, PTT #### [facility] [address] [address] [address] Mirza Sadler ECHOCARDIO M/2D COMPLETEon 1 05-13-2021 ECHOCARDIO M/2D COMPLETE Patient: LANI LIZAMA Exam Date: 03/12/2022 : 1950 Gender:M Ordering : DR OBDULIO ALVA . Admission #: [id number] Family : DR HARLEY CRESPO D.O. Order #: [id number] CLICK HERE TO VIEW EXAM ECHOCARDIOGRAM REPORT PROCEDURE: CARDIO PULMONARY ECHOCARDIO M/2D COMP INDICATIONS: Elevated TROP and BNPChest pain, recent UT, CHF, CBAG x 5, PTCA x 7 [...] Foreman M.D. on 03/13/2022 at 17:42 Normal [facility] PROF CHEM 8 (BAS METB)on Anion gap [Moles/Vol] 17.8 mmol/L Normal [facility] Comment on above: Performed By: #### C TANIA, CMADM #### [facility] [address] [address] [address] Mirza Sadler Calcium [Mass/Vol] 8.6 mg/dL Normal 8.5-10.1 [facility] Comment on above: Performed By: #### C TANIA, CMADM #### [facility] [address] [address] [address] Mirza Sadler Chloride [Moles/Vol] 103 mmol/L Normal 98-107 [facility] Comment on above: Performed By: #### C TANIA, CMADM #### [facility] [address] [place] [address] Dr. Mirza Sadler CO2 [Moles/Vol] 22.3 mmol/L Normal 21.0-32.0 [facility] Comment on above: Performed By: #### C TANIA, CMADM #### [facility] [address] [address] [address] Mirza Sadler Creatinine [Mass/Vol] 1.81 mg/dL Critically high 0.70-1.30 [facility] Comment on above: Performed By: #### C TANIA, CMADM #### [facility] [address] [place] [address] Dr. Mirza Sadler EGFR-AF [place] 45 mL/min/1.73m2 Critically low >=60 [facility] Comment on above: Performed By: #### C TANIA, CMADM #### [facility] [address] [place] [address] Dr. Mirza Sadler EGFR-NON AF [place] 37 mL/min/1.73m2 Critically low >=60 [facility] Comment on above: Performed By: #### C TANIA, CMADM #### [facility] [address] [place] [address] Dr. Mirza Sadler Glucose [Mass/Vol] 161 mg/dL Critically high 74-106 [facility] Comment on above: Performed By: #### C TANIA, CMADM #### [facility] [address] [address] [address] Mirza Sadler Potassium [Moles/Vol] 4.1 mmol/L Normal 3.5-5.1 [facility] Comment on above: Performed By: #### C MP, CMADM #### [facility] [address] [address] [address] Mirza Sadler Sodium [Moles/Vol] 139 mmol/L Normal 136-145 [facility] Comment on above: Performed By: #### C MP, CMADM #### [facility] [address] [address] [address] Mirza Sadler Urea nitrogen [Mass/Vol] 28.0 mg/dL Critically high 7.0-18.0 [facility] Comment on above: Performed By: #### C TANIA, CMADM #### [facility] [address] [place] [address] Dr. Mirza Sadler Urea nitrogen/Creatinine [Mass ratio] 15.5 mg/mg Normal [facility] Comment on above: Performed By: #### C MP, CMADM #### [facility] [address] [place] [address] Dr. Mirza Sadler TROPONIN, HIGH SENSITIVITYon 03-12-2022 HSTROP 99455.5 pg/mL Critically high 4.0-76.1 [facility] Comment on above: Result Comment: CUT- OFF POINTS HAVE BEEN ESTABLISHED BASED ON THE FOURTH UNIVERSAL DEFINITIONS OF MYOCARDIAL INFARCTION. THE UPPER REFERENCE LIMIT (URL) OF TROPONIN, DEFINED THE 99TH PERCENTILE OF cTnI DISTRIBUTION IN A REFERENCE POPULATION, HAS BEEN CONFIRMED THE DECISION THRESHOLD FOR UT DIAGNOSIS. Performed By: #### C MP, CMADM #### [facility] [address] [place] [address] Dr. Mirza Sadler BNPon 03-11-2022 Natriuretic peptide B (Bld) [Mass/Vol] 1378.0 pg/mL Critically high <=900.0 [facility] Comment on above: Performed By: #### P T, PTT #### [facility] [address] [place] [address] Dr. Mirza Sadler CARDIAC PARUL 3-6on 2 CK [Catalytic activity/Vol] 139 U/L Normal 39-308 [facility] Comment on above: Performed By: #### E RUR #### [facility] [address] [place] [address] Dr. Mirza Sadler CK.MB [Mass/Vol] 7.50 ng/mL Critically high <=3.60 [facility] Comment on above: Performed By: #### E RUR #### [facility] [address] [place] [address] Dr. Mirza Sadler HSTROP 1419.3 pg/mL Critically high 4.0-76.1 [facility] Comment on above: Result Comment: CUT- OFF POINTS HAVE BEEN ESTABLISHED BASED ON THE FOURTH UNIVERSAL DEFINITIONS OF MYOCARDIAL INFARCTION. THE UPPER REFERENCE LIMIT (URL) OF TROPONIN, DEFINED THE 99TH PERCENTILE OF cTnI DISTRIBUTION IN A REFERENCE POPULATION, HAS BEEN CONFIRMED THE DECISION THRESHOLD FOR UT DIAGNOSIS. Performed By: #### E RUR #### [facility] [address] [place] [address] Dr. Mirza Sadler CBC AUTO DIFFon 03-11-2022 BASO # 0.1 103/ul Normal 0.0-0.1 [facility] Comment on above: Performed By: #### E RUR #### [facility] [address] [place] [address] Dr. Mirza Sadler Basophils/100 WBC (Bld) 0.5 % Normal 0.2-2.0 [facility] Comment on above: Performed By: #### E RUR #### [facility] [address] [place] [address] Dr. Mirza Sadler EO # 0.2 103/ul Normal 0.0-0.7 [facility] Comment on above: Performed By: #### E RUR #### [facility] [address] [place] [address] Dr. Mirza Sadler Eosinophils/100 WBC (Bld) 1.3 % Normal 0.9-7.0 [facility] Comment on above: Performed By: #### E RUR #### [facility] [address] [place] [address] Dr. Mirza Sadler Erythrocyte distribution width (RBC) [Ratio] 14.6 % Normal 11.0-15.0 [facility] Comment on above: Performed By: #### E RUR #### [facility] [address] [place] [address] Dr. Mirza Sadler Hematocrit (Bld) [Volume fraction] 43.1 % Normal 42.0-54.0 [facility] Comment on above: Performed By: #### E RUR #### [facility] [address] [place] [address] Dr. Mirza Sadler Hemoglobin (Bld) [Mass/Vol] 14.2 g/dL Normal 14.0-18.0 [facility] Comment on above: Performed By: #### E RUR #### [facility] [address] [place] [address] Dr. Mirza Sadler IG # 0.07 10e3/ul Critically high 0.00-0.03 [facility] Comment on above: Performed By: #### E RUR #### [facility] [address] [place] [address] Dr. Mirza Sadler IG % 0.5 % Normal 0.0-0.5 [facility] Comment on above: Performed By: #### E RUR #### [facility] [address] [place] [address] Dr. Mirza Sadler LYMPH # 1.3 103/ul Normal 1.2-3.8 [facility] Comment on above: Performed By: #### E RUR #### [facility] [address] [place] [address] Dr. Mirza Sadler Lymphocytes/100 WBC (Bld) 8.6 % Critically low 20.5-60.0 [facility] Comment on above: Performed By: #### E RUR #### [facility] [address] [place] [address] Dr. Mirza Sadler MANUAL DIFF REQ NO Normal [facility] Comment on above: Performed By: #### E RUR #### [facility] [address] [place] [address] Dr. Mirza Sadler MCH (RBC) [Entitic mass] 29.3 pg Normal 25.9-34.0 [facility] Comment on above: Performed By: #### E RUR #### [facility] [address] [place] [address] Dr. Mirza Sadler MCHC (RBC) [Mass/Vol] 32.9 g/dL Normal 29.9-35.2 [facility] Comment on above: Performed By: #### E RUR #### [facility] [address] [place] [address] Dr. Mirza Sadler MCV (RBC) [Entitic vol] 88.9 fL Normal 80.0-94.0 [facility] Comment on above: Performed By: #### E RUR #### [facility] [address] [place] [address] Dr. Mirza Sadler MONO # 0.7 103/ul Normal 0.3-0.8 [facility] Comment on above: Performed By: #### E RUR #### [facility] [address] [place] [address] Dr. Mirza Sadler Monocytes/100 WBC (Bld) 4.3 % Normal 1.7-12.0 [facility] Comment on above: Performed By: #### E RUR #### [facility] [address] [place] [address] Dr. Mirza Sadler NEUT # 12.8 103/ul Critically high 1.4-6.5 [facility] Comment on above: Performed By: #### E RUR #### [facility] [address] [place] [address] Dr. Mirza Sadler Neutrophils/100 WBC (Bld) 84.8 % Critically high 43.0-75.0 [facility] Comment on above: Performed By: #### E RUR #### [facility] [address] [place] [address] Dr. Mirza Sadler Platelet mean volume (Bld) [Entitic vol] 9.9 fL Normal 9.5-13.5 [facility] Comment on above: Performed By: #### E RUR #### [facility] [address] [address] [address] Mirza Sadler PLT 201 103/ul Normal 150-450 [facility] Comment on above: Performed By: #### E RUR #### [facility] [address] [place] [address] Dr. Mirza Sadler RBC 4.85 106/ul Normal 4.70-6.10 [facility] Comment on above: Performed By: #### E RUR #### [facility] [address] [place] [address] Dr. Mirza Sadler WBC 15.0 103/ul Critically high 4.0-11.0 [facility] Comment on above: Performed By: #### E RUR #### [facility] [address] [place] [address] Dr. Mirza Sadler CULTURE BLOODon 03-11-2022 Microscopic examination of blood, culture Culture Observations: NO GROWTH AT 5 DAYS. Normal [facility] Comment on above: Performed By: #### H STROPN #### [facility] [address] [place] [address] Dr. Mirza Sadler Microscopic examination of blood, culture Culture Observations: NO GROWTH AT 5 DAYS. Normal [facility] Comment on above: Performed By: #### H STROPN #### [facility] [address] [place] [address] Dr. Mirza Sadler [facility] SARS-CoV-2 (COVID-19) RNA RAMO+probe Ql (Unsp spec) Not detected Normal NOT DETECTED [facility] Comment on above: Result Comment: When [...] for this test is supported by the [place] of Health and Human Service's declaration that [...] used). Performed By: #### H STROPN #### [facility] [address] [place] [address] Dr. Mirza Sadler ER URINE PROFILEon 2 Bilirubin Ql (U) Negative Normal NEGATIVE [facility] Comment on above: Performed By: #### E RUR #### [facility] [address] [place] [address] Dr. Mirza Sadler Clarity (U) CLEAR Normal CLEAR [facility] Comment on above: Performed By: #### E RUR #### [facility] [address] [place] [address] Dr. Mirza Sadler Color (U) LT. YELLOW Normal YELLOW [facility] Comment on above: Performed By: #### E RUR #### [facility] [address] [place] [address] Dr. Mirza Sadler ERUAHD A micrscopic examina tion will be performed if indicated. Normal [facility] Comment on above: Performed By: #### E RUR #### [facility] [address] [place] [address] Dr. Mirza Sadler Glucose Ql (U) >1000 Abnormal NEGATIVE [facility] Comment on above: Performed By: #### E RUR #### [facility] [address] [place] [address] Dr. Mirza Sadler Hemoglobin Ql (U) Negative Normal NEGATIVE [facility] Comment on above: Performed By: #### E RUR #### [facility] [address] [place] [address] Dr. Mirza Sadler Ketones Ql (U) 15 mg/dl Abnormal NEGATIVE [facility] Comment on above: Performed By: #### E RUR #### [facility] [address] [place] [address] Dr. Mirza Sadler LEUKOCYTES Negative Normal NEGATIVE [facility] Comment on above: Performed By: #### E RUR #### [facility] [address] [place] [address] Dr. Mirza Sadler Nitrite Ql (U) Negative Normal NEGATIVE [facility] Comment on above: Performed By: #### E RUR #### [facility] [address] [place] [address] Dr. Mirza Sadler pH (U) 5.0 [pH] Normal 5-9 [facility] Comment on above: Performed By: #### E RUR #### [facility] [address] [place] [address] Dr. Mirza Sadler SPEC GRAVITY 1.020 Normal 1.005-<=1. 025 [facility] Comment on above: Performed By: #### E RUR #### [facility] [address] [place] [address] Dr. Mirza Sadler UA PROTEIN TRACE Normal NEGATIVE/ TRACE [facility] Comment on above: Performed By: #### E RUR #### [facility] [address] [place] [address] Dr. Mirza Sadler UR MICRO IND NOT INDICATED Normal [facility] Comment on above: Performed By: #### E RUR #### [facility] [address] [place] [address] Dr. Mirza Sadler Urobilinogen Qn (U) 0.2 {Luisito'U}/dL Normal 0.2 - 1. 0 [facility] Comment on above: Performed By: #### E RUR #### [facility] [address] [place] [address] Dr. Mirza Sadler POINT OF CARE GLUCOSEon 03-01 Glucose [Mass/Vol] 161 mg/dL Critically high 74-106 [facility] Comment on above: Performed By: #### P T, PTT #### [facility] [address] [place] [address] Dr. Mirza Sadler PROF 14(COMP METB)on 022 Albumin [Mass/Vol] 4.3 g/dL Normal 3.4-5.0 [facility] Comment on above: Performed By: #### P T, PTT #### [facility] [address] [address] [address] Mirza Sadler Albumin/Globulin [Mass ratio] 1.1 {ratio} Normal [facility] Comment on above: Performed By: #### P T, PTT #### [facility] [address] [address] [address] Mirza Sadler ALP [Catalytic activity/Vol] 156 U/L Critically high 46-116 [facility] Comment on above: Performed By: #### P T, PTT #### [facility] [address] [address] [address] Mirza Sadler ALT [Catalytic activity/Vol] 24 U/L Normal 16-63 [facility] Comment on above: Performed By: #### P T, PTT #### [facility] [address] [place] [address] Dr. Mirza Sadler Anion gap [Moles/Vol] 16.7 mmol/L Normal [facility] Comment on above: Performed By: #### P T, PTT #### [facility] [address] [address] [address] Mirza Sadler AST [Catalytic activity/Vol] 21 U/L Normal 15-37 [facility] Comment on above: Performed By: #### P T, PTT #### [facility] [address] [address] [address] Mirza Sadler Bilirubin [Mass/Vol] 1.1 mg/dL Critically high 0.2-1.0 [facility] Comment on above: Performed By: #### P T, PTT #### [facility] [address] [address] [address] Mirza Sadler Calcium [Mass/Vol] 8.8 mg/dL Normal 8.5-10.1 [facility] Comment on above: Performed By: #### P T, PTT #### [facility] [address] [address] [address] Mirza Sadler Chloride [Moles/Vol] 105 mmol/L Normal 98-107 [facility] Comment on above: Performed By: #### P T, PTT #### [facility] [address] [address] [address] Mirza Sadler CO2 [Moles/Vol] 25.0 mmol/L Normal 21.0-32.0 [facility] Comment on above: Performed By: #### P T, PTT #### [facility] [address] [address] [address] Mirza Sadler Creatinine [Mass/Vol] 1.57 mg/dL Critically high 0.70-1.30 [facility] Comment on above: Performed By: #### P T, PTT #### [facility] [address] [address] [address] Mirza Sadler EGFR-AF [place] 53 mL/min/1.73m2 Critically low >=60 [facility] Comment on above: Performed By: #### P T, PTT #### [facility] [address] [place] [address] Dr. Mirza Sadler EGFR-NON AF [place] 44 mL/min/1.73m2 Critically low >=60 [facility] Comment on above: Performed By: #### P T, PTT #### [facility] [address] [address] [address] Mirza Sadler Globulin (S) [Mass/Vol] 3.9 g/dL Normal [facility] Comment on above: Performed By: #### P T, PTT #### [facility] [address] [address] [address] Mirza Sadler Glucose [Mass/Vol] 188 mg/dL Critically high 74-106 [facility] Comment on above: Performed By: #### P T, PTT #### [facility] [address] [address] [address] Mirza Sadler Potassium [Moles/Vol] 3.7 mmol/L Normal 3.5-5.1 [facility] Comment on above: Performed By: #### P T, PTT #### [facility] [address] [address] [address] Mirza Sadler Protein [Mass/Vol] 8.2 g/dL Normal 6.4-8.2 [facility] Comment on above: Performed By: #### P T, PTT #### [facility] [address] [place] [address] Dr. Mirza Sadler Sodium [Moles/Vol] 143 mmol/L Normal 136-145 [facility] Comment on above: Performed By: #### P T, PTT #### [facility] [address] [place] [address] Dr. Mirza Sadler Urea nitrogen [Mass/Vol] 20.0 mg/dL Critically high 7.0-18.0 [facility] Comment on above: Performed By: #### P T, PTT #### [facility] [address] [place] [address] Dr. Mirza Sadler Urea nitrogen/Creatinine [Mass ratio] 12.7 mg/mg Normal [facility] Comment on above: Performed By: #### P T, PTT #### [facility] [address] [place] [address] Dr. Mirza Sadler RESPIRATORY PANEL PLUSon Adenovirus Not detected Normal NOT DETECTED [facility] Comment on above: Performed By: #### P T, PTT #### [facility] [address] [place] [address] Dr. Mirza Ball Parapertusis Not detected Normal NOT DETECTED [facility] Comment on above: Performed By: #### P T, PTT #### [facility] [address] [place] [address] Dr. Mirza Ball Pertussis Not detected Normal NOT DETECTED [facility] Comment on above: Performed By: #### P T, PTT #### [facility] [address] [place] [address] Dr. Mirza Sadler Chlamydia Pneumoniae Not detected Normal NOT DETECTED [facility] Comment on above: Performed By: #### P T, PTT #### [facility] [address] [place] [address] Dr. Mirza Sadler Coronavirus 229E Not detected Normal NOT DETECTED [facility] Comment on above: Performed By: #### P T, PTT #### [facility] [address] [place] [address] Dr. Mirza Sadler Coronavirus HKU1 Not detected Normal NOT DETECTED [facility] Comment on above: Performed By: #### P T, PTT #### [facility] [address] [place] [address] Dr. Mirza Sadler Coronavirus NL63 Not detected Normal NOT DETECTED [facility] Comment on above: Performed By: #### P T, PTT #### [facility] [address] [place] [address] Dr. Mirza Sadler Coronavirus OC43 Not detected Normal NOT DETECTED [facility] Comment on above: Performed By: #### P T, PTT #### [facility] [address] [place] [address] Dr. Mirza Sadler Influenza A H1 2009 Not detected Normal NOT DETECTED [facility] Comment on above: Performed By: #### P T, PTT #### [facility] [address] [place] [address] Dr. Mirza Sadler Influenza A H3 Not detected Normal NOT DETECTED [facility] Comment on above: Performed By: #### P T, PTT #### [facility] [address] [place] [address] Dr. Mirza Sadler Influenza B Not detected Normal NOT DETECTED [facility] Comment on above: Performed By: #### P T, PTT #### [facility] [address] [place] [address] Dr. Mirza Sadler Metapneumovirus Not detected Normal NOT DETECTED [facility] Comment on above: Performed By: #### P T, PTT #### [facility] [address] [place] [address] Dr. Mirza Sadler Mycoplas. Pneumoniae Not detected Normal NOT DETECTED [facility] Comment on above: Performed By: #### P T, PTT #### [facility] [address] [place] [address] Dr. Mirza Sadler Parainfluenza 1 Not detected Normal NOT DETECTED [facility] Comment on above: Performed By: #### P T, PTT #### [facility] [address] [place] [address] Dr. Mirza Sadler Parainfluenza 2 Not detected Normal NOT DETECTED [facility] Comment on above: Performed By: #### P T, PTT #### [facility] [address] [place] [address] Dr. Mirza Sadler Parainfluenza 3 Not detected Normal NOT DETECTED [facility] Comment on above: Performed By: #### P T, PTT #### [facility] [address] [place] [address] Dr. Mirza Sadler Parainfluenza 4 Not detected Normal NOT DETECTED [facility] Comment on above: Performed By: #### P T, PTT #### [facility] [address] [place] [address] Dr. Mirza Sadler Rhino/Enterovirus Not detected Normal NOT DETECTED [facility] Comment on above: Performed By: #### P T, PTT #### [facility] [address] [place] [address] Dr. Mirza Sadler RP2 Header 1 RESPIRATORY PANEL: VIRUSES Normal [facility] Comment on above: Performed By: #### P T, PTT #### [facility] [address] [place] [address] Dr. Mirza Sadler RP2 Header 2 RESPIRATORY PANEL: BACTERIA Normal [facility] Comment on above: Performed By: #### P T, PTT #### [facility] [address] [place] [address] Dr. Mirza Sadler RSV Not detected Normal NOT DETECTED [facility] Comment on above: Performed By: #### P T, PTT #### [facility] [address] [place] [address] Dr. Mirza Sadler SARS-CoV-2 (COVID-19) RNA RAMO+probe Ql (Unsp spec) Not detected Normal NOT DETECTED [facility] Comment on above: Performed By: #### P T, PTT #### [facility] [address] [place] [address] Dr. Mirza Sadler TROPONIN, HIGH SENSITIVITYon 03-11-2022 HSTROP 41984.8 pg/mL Critically high 4.0-76.1 [facility] Comment on above: Result Comment: CUT- OFF POINTS HAVE BEEN ESTABLISHED BASED ON THE FOURTH UNIVERSAL DEFINITIONS OF MYOCARDIAL INFARCTION. THE UPPER REFERENCE LIMIT (URL) OF TROPONIN, DEFINED THE 99TH PERCENTILE OF cTnI DISTRIBUTION IN A REFERENCE POPULATION, HAS BEEN CONFIRMED THE DECISION THRESHOLD FOR UT DIAGNOSIS. Performed By: #### C MP, CMADM #### [facility] [address], [place] [address] Dr. Mirza Sadler HSTROP 41.0 pg/mL Normal 4.0-76.1 [facility] Comment on above: Result Comment: CUT- OFF POINTS HAVE BEEN ESTABLISHED BASED ON THE FOURTH UNIVERSAL DEFINITIONS OF MYOCARDIAL INFARCTION. THE UPPER REFERENCE LIMIT (URL) OF TROPONIN, DEFINED THE 99TH PERCENTILE OF cTnI DISTRIBUTION IN A REFERENCE POPULATION, HAS BEEN CONFIRMED THE DECISION THRESHOLD FOR UT DIAGNOSIS. Performed By: #### P T, PTT #### [facility] [address], [place] [address] Dr. Mirza Sadler XR CHEST 1 Von [...] by: Kayden ACEVES Date: 2022-03-11 05:42 Normal [facility] NM MUGAon 03-09-2022 NM MUGA [...] SHANNON LANDIS Date: 2022-03-09 12:26 Normal [facility] CT CHEST WO CONon 03-02-2022 CT [...] HIGINIO FLANAGAN Date: 2022-03-02 08:52 Normal [facility] Creatinine and Glomerular fi ltration rate.predicted panel (S/P/Bld)Ordered By: Gagan Shahid on 01-17-2022 Creatinine [Mass/Vol] 1.53 mg/dL 0.64-1.27 [facility] Estimated glomerular filtrat ion rate (GFR) non- AmericanOrdered By: Gagan Shahid on 01-17-2022 GFR/1.73 sq M.predicted among non-blacks MDRD (S/P/Bld) [Vol rate/Area] 45 mL/Min [facility] Glucose Glucometer (BldC) [M ass/Vol]Ordered By: Gagan Shahid on 01-17-2022 Glucose [Mass/Vol] 178 mg/dL [facility] Comment on above: Random Glucose Refer ence Range is dependent on time and content of last meal. Glucose of more than 200 mg/dL in a nonstressed, ambulatory subject supports the diagnosis of Diabetes Mellitus. No Panel InformationOrdered By: Gagan Shahid on 01-17-2022 Estimated GFR () 55 mL/Min [facility] Comment on above: GFR estimated refere nce range: According to KDOQI guidelines, <60 ml/min/1.73m2 is sufficient to diagnose a patient with chronic kidney disease. Pharmacy Creatinine Clearance (Chem 42.00 [facility] Serum or plasma anion gap de terminationOrdered By: Gagan Shahid on 01-17-2022 Anion gap [Moles/Vol] 12.0 mmol/L 6.0-15.0 [facility] Serum or plasma calcium radha urement (mass/volume)Ordered By: Gagan Shahid on 01-17-2022 Calcium [Mass/Vol] 9.0 mg/dL 8.2-10.2 [facility] Serum or plasma chloride shanae surement (moles/volume)Ordered By: Gagan Shahid on 01-17-2022 Chloride [Moles/Vol] 107 mmol/L 95-114 [facility] Serum or plasma glucose radha urement (mass/volume)Ordered By: Gagan Shahid on 01-17-2022 Glucose [Mass/Vol] 142 mg/dL 70-100 [facility] Comment on above: ADA recommended refe rence rangeRandom Glucose Reference Range is dependent on time and content of last meal. Glucose of more than 200 mg/dL in a nonstressed, ambulatory subject supports the diagnosis of Diabetes Mellitus. Serum or plasma potassium me asurement (moles/volume)Ordered By: Gagan Shahid on 01-17-2022 Potassium [Moles/Vol] 3.5 mmol/L 3.5-5.1 [facility] Serum or plasma sodium measu rement (moles/volume)Ordered By: Gagan Shahid on 01-17-2022 Sodium [Moles/Vol] 137 mmol/L 136-146 [facility] Serum or plasma total carbon dioxide measurement (moles/volume)Ordered By: Gagan Shahid on 01-17-2022 CO2 [Moles/Vol] 21.5 mmol/L 22.0-30.0 [facility] Serum or plasma urea nitroge n measurement (mass/volume)Ordered By: Gagan Shahid on 01-17-2022 Urea nitrogen [Mass/Vol] 24 mg/dL 9- [facility] Activated partial thrombopla stin time (aPTT) in platelet poor plasma by coagulation aOrdered By: Gagan Shahid on 01-16-2022 aPTT Coag (PPP) [Time] 42.1 s 25.1-36.5 [facility] Basophils Auto (Bld) [#/Vol] Ordered By: Gagan Shahid on 01-16-2022 Basophils (Bld) [#/Vol] 0.0 10*3/uL 0.0-0.2 [facility] Basophils/100 WBC Auto (Bld) Ordered By: Gagan Shahid on 01-16-2022 Basophils/100 WBC (Bld) 0.5 % . [facility] Creatine kinase [Enzymatic a ctivity/volume] in Serum or PlasmaOrdered By: Gagan Shahid on 01-16-2022 CK [Catalytic activity/Vol] 92 U/L 22-269 [facility] Eosinophils Auto (Bld) [#/Vo l]Ordered By: Gagan Shahid on 01-16-2022 Eosinophils (Bld) [#/Vol] 0.2 10*3/uL 0.0-0.45 [facility] Eosinophils/100 WBC Auto (Bl d)Ordered By: Gagan Shahid on 01-16-2022 Eosinophils/100 WBC (Bld) 2.4 % . [facility] Erythrocyte distribution wid th Auto (RBC) [Ratio]Ordered By: Gagan Shahid on 01-16-2022 Erythrocyte distribution width (RBC) [Ratio] 14.6 % 12.0-14.8 [facility] Hematocrit Auto (Bld) [Volum e fraction]Ordered By: Gagan Shahid on 01-16-2022 Hematocrit (Bld) [Volume fraction] 43.4 % 38.8-50.0 [facility] Hemoglobin [Mass/volume] in BloodOrdered By: Gagan Shahid on 01-16-2022 Hemoglobin (Bld) [Mass/Vol] 14.4 g/dL 13.0-17.0 [facility] - Chemistry and C hemistry - challengeOrdered By: Gagan Shahid on 01-16-2022 Magnesium [Mass/Vol] 1.9 mg/dL 1.6-2.6 [facility] Laboratory - CoagulationOrde red By: Gagan Shahid on 01-16-2022 PT Coag (PPP) [Time] 15.7 s 9.0-12.9 [facility] Laboratory - Hematology and Cell countsOrdered By: Gagan Shahid on 01-16-2022 Nucleated RBC/100 WBC (Bld) [Ratio] 0.1 % 0-0.5 [facility] Leukocytes [#/volume] in Blo od by Automated countOrdered By: Gagan Shahid on 01-16-2022 WBC (Bld) [#/Vol] 8.2 10*3/uL 4.5-11.0 [facility] Lymphocytes Auto (Bld) [#/Vo l]Ordered By: Gagan Shahid on 01-16-2022 Lymphocytes (Bld) [#/Vol] 1.6 10*3/uL 1.00-4.8 [facility] Lymphocytes/100 WBC Auto (Bl d)Ordered By: Gagan Shahid on 01-16-2022 Lymphocytes/100 WBC (Bld) 19.5 % . [facility] MCH Auto (RBC) [Entitic mass ]Ordered By: Gagan Shahid on 01-16-2022 MCH (RBC) [Entitic mass] 29.4 pg 27.5-35.2 [facility] MCHC Auto (RBC) [Mass/Vol]Or dered By: Gagan Shahid on 01-16-2022 MCHC (RBC) [Mass/Vol] 33.2 g/dL 32.5-35.6 [facility] MCV Auto (RBC) [Entitic vol] Ordered By: Gagan Shahid on 01-16-2022 MCV (RBC) [Entitic vol] 88.5 fL 83.5-101 [facility] Monocytes Auto (Bld) [#/Vol] Ordered By: Gagan Shahid on 01-16-2022 Monocytes (Bld) [#/Vol] 0.8 10*3/uL 0.0-0.8 [facility] Monocytes/100 WBC Auto (Bld) Ordered By: Gagan Shahid on 01-16-2022 Monocytes/100 WBC (Bld) 9.1 % . [facility] Neutrophils Auto (Bld) [#/Vo l]Ordered By: Gagan Shahid on 01-16-2022 Neutrophils (Bld) [#/Vol] 5.6 10*3/uL 1.8-7.7 [facility] Neutrophils/100 WBC Auto (Bl d)Ordered By: Gagan Shahid on 01-16-2022 Neutrophils/100 WBC (Bld) 68.5 % . [facility] No Panel InformationOrdered By: Gagan Shahid on 01-16-2022 Bedside Glucose Comment Glu2: cleaned meter [facility] Platelet mean volume Auto (B ld) [Entitic vol]Ordered By: Gagan Shahid on 01-16-2022 Platelet mean volume (Bld) [Entitic vol] 8.4 fL 6.6-10.1 [facility] Platelet poor plasma interna tional normalized ratio (INR) by coagulation assay (relatOrdered By: Gagan Shahid on 01-16-2022 INR Coag (PPP) [Relative time] 1.4 {INR} [facility] Comment on above: INR Therapeutic Rang [...] 01-16-2022 Platelets (Bld) [#/Vol] 178 10*3/uL 150-450 [facility] RBC Auto (Bld) [#/Vol]Ordere d By: Gagan Shahid on 01-16-2022 RBC (Bld) [#/Vol] 4.90 10*6/uL 3.90-5.60 [facility] Serum or plasma creatine kin ase MB (CKMB)/total creatine kinase (CK) ratio by calculaOrdered By: Gagan Shahid on 01-16-2022 CK.MB Calc [Catalytic fraction] 3.2 % 0.00-2.50 [facility] Serum or plasma creatine kin ase MB measurement (mass/volume)Ordered By: Gagan Sahhid on 01-16-2022 CK.MB [Mass/Vol] 3.0 ng/mL 0.6-6.3 [facility] Troponin I.cardiac [Mass/vol ume] in Serum or Plasma by High sensitivity methodOrdered By: Gagan Shahid on 01-16-2022 Troponin I.cardiac High sensitivity method [Mass/Vol] 525 pg/mL 0-20 [facility] Comment on above: Critical valueresult calledat 1844 on 01/16/22 BNPon 01-15-2022 Natriuretic peptide B (Bld) [Mass/Vol] 1012.0 pg/mL Critically high <=900.0 [facility] Comment on above: Performed By: #### B OPENSTACK CLOUD CONSULTING ARCHITECT #### [facility] [address] [place] [address] Dr. Mirza Sadler CARDIAC PARUL ADMITon 022 CK [Catalytic activity/Vol] 93 U/L Normal 39-308 [facility] Comment on above: Performed By: #### C TEGAN MARIN #### [facility] [address] [address] [address] Mirza Sadler CK.MB [Mass/Vol] 1.67 ng/mL Normal <=3.60 [facility] Comment on above: Performed By: #### C TEGAN MARIN #### [facility] [address] [address] [address] Mirza Sadler HSTROP 17.1 pg/mL Normal 4.0-76.1 [facility] Comment on above: Result Comment: CUT- OFF POINTS HAVE BEEN ESTABLISHED BASED ON THE FOURTH UNIVERSAL DEFINITIONS OF MYOCARDIAL INFARCTION. THE UPPER REFERENCE LIMIT (URL) OF TROPONIN, DEFINED THE 99TH PERCENTILE OF cTnI DISTRIBUTION IN A REFERENCE POPULATION, HAS BEEN CONFIRMED THE DECISION THRESHOLD FOR UT DIAGNOSIS. Performed By: #### C TANIA, DOMDM #### [facility] [address] [place] [address] Dr. Mirza Sadler RACHEL 63 ng/mL Normal 16-96 [facility] Comment on above: Performed By: #### C TANIA, CMADM #### [facility] [address] [place] [address] Dr. Mirza Sadler CBC AUTO DIFFon 01-15-2022 BASO # 0.1 103/ul Normal 0.0-0.1 [facility] Comment on above: Performed By: #### E RUR #### [facility] [address] [place] [address] Dr. Mirza Sadler Basophils/100 WBC (Bld) 0.9 % Normal 0.2-2.0 [facility] Comment on above: Performed By: #### E RUR #### [facility] [address] [place] [address] Dr. Mirza Sadler EO # 0.3 103/ul Normal 0.0-0.7 [facility] Comment on above: Performed By: #### E RUR #### [facility] [address] [place] [address] Dr. Mirza Sadler Eosinophils/100 WBC (Bld) 3.1 % Normal 0.9-7.0 [facility] Comment on above: Performed By: #### E RUR #### [facility] [address] [place] [address] Dr. Mirza Sadler Erythrocyte distribution width (RBC) [Ratio] 14.2 % Normal 11.0-15.0 [facility] Comment on above: Performed By: #### E RUR #### [facility] [address] [place] [address] Dr. Mirza Sadler Hematocrit (Bld) [Volume fraction] 44.4 % Normal 42.0-54.0 [facility] Comment on above: Performed By: #### E RUR #### [facility] [address] [address] [address] Mirza Sadler Hemoglobin (Bld) [Mass/Vol] 14.4 g/dL Normal 14.0-18.0 [facility] Comment on above: Performed By: #### E RUR #### [facility] [address] [address] [address] Mirza Sadler IG # 0.03 10e3/ul Normal 0.00-0.03 [facility] Comment on above: Performed By: #### E RUR #### [facility] [address] [address] [address] Mirza Sadler IG % 0.3 % Normal 0.0-0.5 [facility] Comment on above: Performed By: #### E RUR #### [facility] [address] [place] [address] Dr. Mirza Sadler LYMPH # 1.6 103/ul Normal 1.2-3.8 [facility] Comment on above: Performed By: #### E RUR #### [facility] [address] [place] [address] Dr. Mirza Sadler Lymphocytes/100 WBC (Bld) 16.8 % Critically low 20.5-60.0 [facility] Comment on above: Performed By: #### E RUR #### [facility] [address] [place] [address] Dr. Mirza Sadler MANUAL DIFF REQ NO Normal [facility] Comment on above: Performed By: #### E RUR #### [facility] [address] [address] [address] Mirza Sadler MCH (RBC) [Entitic mass] 29.4 pg Normal 25.9-34.0 [facility] Comment on above: Performed By: #### E RUR #### [facility] [address] [place] [address] Dr. Mirza Sadler MCHC (RBC) [Mass/Vol] 32.4 g/dL Normal 29.9-35.2 [facility] Comment on above: Performed By: #### E RUR #### [facility] [address] [address] [address] Mirza Sadler MCV (RBC) [Entitic vol] 90.6 fL Normal 80.0-94.0 [facility] Comment on above: Performed By: #### E RUR #### [facility] [address] [place] [address] Dr. Mirza Sadler MONO # 0.5 103/ul Normal 0.3-0.8 [facility] Comment on above: Performed By: #### E RUR #### [facility] [address] [place] [address] Dr. Mirza Sadler Monocytes/100 WBC (Bld) 5.9 % Normal 1.7-12.0 [facility] Comment on above: Performed By: #### E RUR #### [facility] [address] [place] [address] Dr. Mirza Sadler NEUT # 6.7 103/ul Critically high 1.4-6.5 [facility] Comment on above: Performed By: #### E RUR #### [facility] [address] [place] [address] Dr. Mirza Sadler Neutrophils/100 WBC (Bld) 73.0 % Normal 43.0-75.0 [facility] Comment on above: Performed By: #### E RUR #### [facility] [address] [place] [address] Dr. Mirza Sadler Platelet mean volume (Bld) [Entitic vol] 10.0 fL Normal 9.5-13.5 [facility] Comment on above: Performed By: #### E RUR #### [facility] [address] [place] [address] Dr. Mirza Sadler PLT 190 103/ul Normal 150-450 [facility] Comment on above: Performed By: #### E RUR #### [facility] [address] [place] [address] Dr. Mirza Sadler RBC 4.90 106/ul Normal 4.70-6.10 [facility] Comment on above: Performed By: #### E RUR #### [facility] [address], [place] [address] Dr. Mirza Sadler WBC 9.2 103/ul Normal 4.0-11.0 [facility] Comment on above: Performed By: #### E RUR #### [facility] [address], [place] [address] CHEST WO CONon [...] HIGINIO FLANAGAN Date: 2022-01-15 08:19 Normal [facility] CULTURE BLOODon 01-15-2022 Microscopic examination of blood, culture Culture Observations: NO GROWTH AT 5 DAYS. Normal [facility] Comment on above: Performed By: #### H STROPN #### [facility] [address] [place] [address] Dr. Mirza Sadler Microscopic examination of blood, culture Culture Observations: NO GROWTH AT 5 DAYS. Normal [facility] Comment on above: Performed By: #### B LDCX1 #### [facility] [address] [place] [address] Dr. Mirza Sadler Covid-19 PCR ([facility])on 12-30 SARS-CoV-2 (COVID-19) RNA RAMO+probe Ql (Unsp spec) Not detected Normal NOT DETECTED [facility] [facility] Comment on above: Result Comment: When [...] for this test is supported by the [place] of Health and Human Service's declaration that [...] longer be used). Performed By: #### B OPENSTACK CLOUD CONSULTING ARCHITECT #### [facility] [address] [place] [address] Dr. Mirza Sadler ER URINE PROFILEon 2 Bilirubin Ql (U) Negative Normal NEGATIVE The [facility] Comment on above: Performed By: #### C TEGAN MARIN #### [facility] [address] [place] [address] Dr. Mirza Sadler Clarity (U) CLEAR Normal CLEAR [facility] Comment on above: Performed By: #### C DOM MARINDM #### [facility] [address] [address] [address] Mirza Sadler Color (U) LT. YELLOW Normal YELLOW [facility] Comment on above: Performed By: #### C TANIA, CMADM #### [facility] [address] [address] [address] Mirza BUSTILLO A micrscopic examina tion will be performed if indicated. Normal [facility] Comment on above: Performed By: #### C MP, CMADM #### [facility] [address] [address] [address] Mirza Sadler Glucose Ql (U) >1000 Abnormal NEGATIVE The [facility] Comment on above: Performed By: #### C TANIA, CMADM #### [facility] [address] [place] [address] Dr. Mirza Sadler Hemoglobin Ql (U) Negative Normal NEGATIVE The [facility] Comment on above: Performed By: #### C TANIA, CMADM #### [facility] [address] [place] [address] Dr. Mirza Sadler Ketones Ql (U) TRACE Abnormal NEGATIVE The [facility] Comment on above: Performed By: #### C TANIA, CMADM #### [facility] [address] [place] [address] Dr. Mirza Sadler LEUKOCYTES Negative Normal NEGATIVE [facility] Comment on above: Performed By: #### C TANIA, CMADM #### [facility] [address] [place] [address] Dr. Mirza Sadler Nitrite Ql (U) Negative Normal NEGATIVE The [facility] Comment on above: Performed By: #### C TANIA, CMADM #### [facility] [address] [place] [address] Dr. Mirza Sadler pH (U) 5.5 [pH] Normal 5-9 [facility] Comment on above: Performed By: #### C TANIA, CMADM #### [facility] [address] [place] [address] Dr. Mirza Sadler SPEC GRAVITY 1.020 Normal 1.005-<=1. 025 [facility] Comment on above: Performed By: #### C TANIA, CMADM #### [facility] [address] [address] [address] Mirza Sadler UA PROTEIN TRACE Normal NEGATIVE/ TRACE [facility] Comment on above: Performed By: #### C MP, CMADM #### [facility] [address] [address] [address] Mirza Sadler UR MICRO IND NOT INDICATED Normal The [facility] Comment on above: Performed By: #### C MP, CMADM #### [facility] [address] [address] [address] Mirza Sadler Urobilinogen Qn (U) 0.2 {Luisito'U}/dL Normal 0.2 - 1. 0 [facility] Comment on above: Performed By: #### C TANIA, CMADM #### [facility] [address] [place] [address] Dr. Mirza Sadler LACTATE/LACTIC ACIDon 2021 Lactate [Moles/Vol] 0.8 mmol/L Normal 0.4-1.9 [facility] Comment on above: Performed By: #### P T, PTT #### [facility] [address] [address] [address] Mirza Sadler PROF 14(COMP METB)on 022 Albumin [Mass/Vol] 4.4 g/dL Normal 3.4-5.0 [facility] Comment on above: Performed By: #### C TANIA, CMADM #### [facility] [address] [place] [address] Dr. Mirza Sadler Albumin/Globulin [Mass ratio] 1.3 {ratio} Normal [facility] Comment on above: Performed By: #### C MP, CMADM #### [facility] [address] [address] [address] Mirza Sadler ALP [Catalytic activity/Vol] 155 U/L Critically high 46-116 [facility] Comment on above: Performed By: #### C MP, CMADM #### [facility] [address] [address] [address] Mirza Sadler ALT [Catalytic activity/Vol] 27 U/L Normal 16-63 [facility] Comment on above: Performed By: #### C MP, CMADM #### [facility] [address] [address] [address] Mirza Sadler Anion gap [Moles/Vol] 14.9 mmol/L Normal Th [facility] Comment on above: Performed By: #### C MP, CMADM #### [facility] [address] [address] [address] Mirza Sadler AST [Catalytic activity/Vol] 22 U/L Normal 15-37 [facility] Comment on above: Performed By: #### C MP, CMADM #### [facility] [address] [place] [address] Dr. Mirza Sadler Bilirubin [Mass/Vol] 0.8 mg/dL Normal 0.2-1.0 [facility] Comment on above: Performed By: #### C TANIA, CMADM #### [facility] [address] [place] [address] Dr. Mirza Sadler Calcium [Mass/Vol] 8.8 mg/dL Normal 8.5-10.1 [facility] Comment on above: Performed By: #### C TANIA, CMADM #### [facility] [address] [place] [address] Dr. Mirza Sadler Chloride [Moles/Vol] 106 mmol/L Normal 98-107 [facility] Comment on above: Performed By: #### C TANIA, CMADM #### [facility] [address] [place] [address] Dr. Mirza Sadler CO2 [Moles/Vol] 23.9 mmol/L Normal 21.0-32.0 [facility] Comment on above: Performed By: #### C MP, CMADM #### [facility] [address] [place] [address] Dr. Mirza Sadler Creatinine [Mass/Vol] 1.51 mg/dL Critically high 0.70-1.30 [facility] Comment on above: Performed By: #### C TANIA, CMADM #### [facility] [address] [place] [address] Dr. Mirza Sadler EGFR-AF [place]THER[place] 56 mL/min/1.73m2 Critically low >=60 [facility] Comment on above: Performed By: #### C TANIA, CMADM #### [facility] [address] [address] [address] Mirza Sadler EGFR-NON AF [place] 46 mL/min/1.73m2 Critically low >=60 [facility] Comment on above: Performed By: #### C TANIA, CMADM #### [facility] [address] [address] [address] Mirza Sadler Globulin (S) [Mass/Vol] 3.4 g/dL Normal [facility] Comment on above: Performed By: #### C TANIA, CMADM #### [facility] [address] [address] [address] Mirza Sadler Glucose [Mass/Vol] 189 mg/dL Critically high 74-106 [facility] Comment on above: Performed By: #### C TANIA, CMADM #### [facility] [address] [address] [address] Mirza Sadler Potassium [Moles/Vol] 3.8 mmol/L Normal 3.5-5.1 [facility] Comment on above: Performed By: #### C TANIA, CMADM #### [facility] [address] [place] [address] Dr. Mirza Sadler Protein [Mass/Vol] 7.8 g/dL Normal 6.4-8.2 [facility] Comment on above: Performed By: #### C TANIA, CMADM #### [facility] [address] [place] [address] Dr. Mirza Sadler Sodium [Moles/Vol] 141 mmol/L Normal 136-145 [facility] Comment on above: Performed By: #### C TANIA, CMADM #### [facility] [address] [address] [address] Mirza Sadler Urea nitrogen [Mass/Vol] 22.0 mg/dL Critically high 7.0-18.0 [facility] Comment on above: Performed By: #### C TANIA, CMADM #### [facility] [address] [place] [address] Dr. Mirza Sadler Urea nitrogen/Creatinine [Mass ratio] 14.6 mg/mg Normal [facility] Comment on above: Performed By: #### C DOM MARINDM #### [facility] [address] [place] [address] Dr. Mirza Sadler PROTIMEon 01-15-2022 INR Coag (PPP) [Relative time] 1.10 {INR} Normal [facility] Comment on above: Performed By: #### E RUR #### [facility] [address] [place] [address] Dr. Mirza Sadler INR GUIDELINES SEE BELOW Normal The [facility] Comment on above: Result Comment: RIVKA RED INR: 2.0 - 3.0 CONDITIONS NOT LISTED BELOW 2.5 - 3.5 FOR PROSTHETIC HEART VALVE REPLACEMENT 2.5 - 3.5 RECURRENT THROMBOSIS Performed By: #### E RUR #### [facility] [address] [place] [address] Dr. Mirza Sadler PT Coag (PPP) [Time] 11.8 s Critically high 9.0-11.6 [facility] Comment on above: Performed By: #### E RUR #### [facility] [address] [place] [address] Dr. Mirza Sadler PTTon 01-15-2022 aPTT Coag (Bld) [Time] 29.0 s Normal 22.3-36.2 [facility] Comment on above: Performed By: #### E RUR #### [facility] [address] [place] [address] Dr. Mirza Sadler TROPONIN, HIGH SENSITIVITYon 01-15-2022 HSTROP 1786.2 pg/mL Critically high 4.0-76.1 [facility] Comment on above: Result Comment: CUT- OFF POINTS HAVE BEEN ESTABLISHED BASED ON THE FOURTH UNIVERSAL DEFINITIONS OF MYOCARDIAL INFARCTION. THE UPPER REFERENCE LIMIT (URL) OF TROPONIN, DEFINED THE 99TH PERCENTILE OF cTnI DISTRIBUTION IN A REFERENCE POPULATION, HAS BEEN CONFIRMED THE DECISION THRESHOLD FOR UT DIAGNOSIS. Performed By: #### H STROPN #### [facility] [address] [place] [address] Dr. Mirza Sadler HSTROP 669.3 pg/mL Critically high 4.0-76.1 [facility] Comment on above: Result Comment: CUT- OFF POINTS HAVE BEEN ESTABLISHED BASED ON THE FOURTH UNIVERSAL DEFINITIONS OF MYOCARDIAL INFARCTION. THE UPPER REFERENCE LIMIT (URL) OF TROPONIN, DEFINED THE 99TH PERCENTILE OF cTnI DISTRIBUTION IN A REFERENCE POPULATION, HAS BEEN CONFIRMED THE DECISION THRESHOLD FOR UT DIAGNOSIS. Performed By: #### H STROPN #### [facility] [address] [address] [address] Mirza Sadler XR CHEST 1 Von [...] WAYNE CASEY Date: 2022-01-15 06:42 Normal [facility] A1C HEMOGLOBINon 12-18-2021 HbA1c (Bld) [Mass fraction] 6.2 % [employer] Other Glucose - FINGER STICKon Glucose [Mass/Vol] 120 mg/dL [employer] Other HbA1c (Bld) [Mass fraction]o n 12-18-2021 A1C HEMOGLOBIN [employer] Other XR CHEST 2 Von 12-08-2021 XR [...] HIGINIO FLANAGAN Date: 2021-12-08 16:07 Normal [facility] PTH INTACTon 12-01-2021 PTH, Intact 15 pg/mL Normal 15-65 [facility] Comment on above: Performed By: #### C MP, CMADM #### [facility] [address] [address] [address] Mirza Sadler VIT D 25-OH LABCORPon 2021 Vitamin D, 25-Hydroxy 41.2 ng/mL Normal 30.0-100.0 [facility] Comment on above: Result Comment: [place] min D deficiency has been defined by the [place] of [employer] and an Endocrine Society practice guideline as a level of serum 25-OH vitamin D less than 20 ng/mL (1,2). The Endocrine Society went on to further define vitamin D insufficiency as a level between 21 and 29 ng/mL (2). 1. IOM ([place] of [employer]). 2010. Dietary reference intakes for calcium and D. [place]: The National Academies Press. 2. Noemy MF, Sonam [place], Jake HERMOSILLO, et al. Evaluation, treatment, and prevention of vitamin D deficiency: an Endocrine Society clinical practice guideline. JCEM. 2010; 96(7):1911-30. Performed By: #### P T, PTT #### [facility] [address] [address] [address] Mirza Sadler HEMOGRAM AND PLATELon 2021 Hematocrit (Bld) [Volume fraction] 39.9 % Critically low 42.0-54.0 [facility] Comment on above: Performed By: #### P T, PTT #### [facility] [address] [address] [address] Mirza Sadler Hemoglobin (Bld) [Mass/Vol] 13.1 g/dL Critically low 14.0-18.0 [facility] Comment on above: Performed By: #### P T, PTT #### [facility] [address] [address] [address] Mirza Sadler MCH (RBC) [Entitic mass] 29.5 pg Normal 25.9-34.0 [facility] Comment on above: Performed By: #### P T, PTT #### [facility] [address] [place] [address] Dr. Mirza Sadler MCHC (RBC) [Mass/Vol] 32.8 g/dL Normal 29.9-35.2 [facility] Comment on above: Performed By: #### P T, PTT #### [facility] [address] [place] [address] Dr. Mirza Sadler MCV (RBC) [Entitic vol] 89.9 fL Normal 80.0-94.0 [facility] Comment on above: Performed By: #### P T, PTT #### [facility] [address] [place] [address] Dr. Mirza Sadler PLT 182 103/ul Normal 150-450 [facility] Comment on above: Performed By: #### P T, PTT #### [facility] [address] [place] [address] Dr. Mirza Sadler RBC 4.44 106/ul Critically low 4.70-6.10 [facility] Comment on above: Performed By: #### P T, PTT #### [facility] [address] [place] [address] Dr. Mirza Sadler WBC 6.9 103/ul Normal 4.0-11.0 [facility] Comment on above: Performed By: #### P T, PTT #### [facility] [address] [place] [address] Dr. Mirza Sadler MAGNESIUMon 11-30-2021 Magnesium [Mass/Vol] 1.8 mg/dL Normal 1.8-2.4 [facility] Comment on above: Performed By: #### P T, PTT #### [facility] [address] [place] [address] Dr. Mirza Sadler RENAL FUNCTION PANELon 11-30 Albumin [Mass/Vol] 3.9 g/dL Normal 3.4-5.0 [facility] Comment on above: Performed By: #### P T, PTT #### [facility] [address] [place] [address] Dr. Mirza Sadler Calcium [Mass/Vol] 9.0 mg/dL Normal 8.5-10.1 [facility] Comment on above: Performed By: #### P T, PTT #### [facility] [address] [place] [address] Dr. Mirza Sadler Chloride [Moles/Vol] 107 mmol/L Normal 98-107 [facility] Comment on above: Performed By: #### P T, PTT #### [facility] [address] [place] [address] Dr. Mirza Sadler CO2 [Moles/Vol] 26.2 mmol/L Normal 21.0-32.0 [facility] Comment on above: Performed By: #### P T, PTT #### [facility] [address] [place] [address] Dr. Mirza Sadler Creatinine [Mass/Vol] 1.55 mg/dL Critically high 0.70-1.30 [facility] Comment on above: Performed By: #### P T, PTT #### [facility] [address] [place] [address] Dr. Mirza Sadler EGFR-AF [place] 54 mL/min/1.73m2 Critically low >=60 [facility] Comment on above: Performed By: #### P T, PTT #### [facility] [address] [place] [address] Dr. Mirza Sadler EGFR-NON AF [place] 45 mL/min/1.73m2 Critically low >=60 [facility] Comment on above: Performed By: #### P T, PTT #### [facility] [address] [place] [address] Dr. Mirza Sadler Glucose [Mass/Vol] 166 mg/dL Critically high 74-106 [facility] Comment on above: Performed By: #### P T, PTT #### [facility] [address] [place] [address] Dr. Mirza Sadler Phosphate [Mass/Vol] 3.7 mg/dL Normal 2.6-4.7 [facility] Comment on above: Performed By: #### P T, PTT #### [facility] [address] [place] [address] Dr. Mirza Sadler Potassium [Moles/Vol] 4.2 mmol/L Normal 3.5-5.1 [facility] Comment on above: Performed By: #### P T, PTT #### [facility] [address] [place] [address] Dr. Mirza Sadler Sodium [Moles/Vol] 142 mmol/L Normal 136-145 [facility] Comment on above: Performed By: #### P T, PTT #### [facility] [address] [place] [address] Dr. Mirza Sadler Urea nitrogen [Mass/Vol] 16.0 mg/dL Normal 7.0-18.0 [facility] Comment on above: Performed By: #### P T, PTT #### [facility] [address] [place] [address] Dr. Mirza Sadler UA RANDOM W/MICROSCOPICon BACTERIA NONE SEEN Normal NONE SEEN [facility] Comment on above: Performed By: #### B LDCX2 #### [facility] [address] [place] [address] Dr. Mirza Sadler Bilirubin Ql (U) Negative Normal NEGATIVE [facility] Comment on above: Performed By: #### B LDCX2 #### [facility] [address] [place] [address] Dr. Mirza Sadler CAST NONE SEEN Normal NONE SEEN [facility] Comment on above: Performed By: #### B LDCX2 #### [facility] [address] [place] [address] Dr. Mirza Sadler Clarity (U) CLEAR Normal CLEAR [facility] Comment on above: Performed By: #### B LDCX2 #### [facility] [address] [place] [address] Dr. Mirza Sadler Color (U) LT. YELLOW Normal YELLOW [facility] Comment on above: Performed By: #### B LDCX2 #### [facility] [address] [address] [address] Mirza Sadler Crystals LM Nom (Urine sed) NONE SEEN Normal NONE SEEN [facility] Comment on above: Performed By: #### B LDCX2 #### [facility] [address] [address] [address] Mirza Sadler Epithelial cells LM Ql (Urine sed) RARE Normal NONE SEEN /RARE [facility] Comment on above: Performed By: #### B LDCX2 #### [facility] [address] [place] [address] Dr. Mirza Sadler Glucose Ql (U) >1000 Abnormal NEGATIVE The [facility] Comment on above: Performed By: #### B LDCX2 #### [facility] [address] [place] [address] Dr. Mirza Sadler Hemoglobin Ql (U) Negative Normal NEGATIVE The [facility] Comment on above: Performed By: #### B LDCX2 #### [facility] [address] [place] [address] Dr. Mirza Sadler Ketones Ql (U) Negative Normal NEGATIVE [facility] Comment on above: Performed By: #### B LDCX2 #### [facility] [address] [place] [address] Dr. Mirza Sadler LEUKOCYTES Negative Normal NEGATIVE [facility] Comment on above: Performed By: #### B LDCX2 #### [facility] [address] [place] [address] Dr. Mirza Sadler MUCOUS NONE SEEN Normal NONE SEEN [facility] Comment on above: Performed By: #### B LDCX2 #### [facility] [address] [place] [address] Dr. Mirza Sadler Nitrite Ql (U) Negative Normal NEGATIVE [facility] Comment on above: Performed By: #### B LDCX2 #### [facility] [address] [place] [address] Dr. Mirza Sadler pH (U) 5.5 [pH] Normal 5-9 [facility] Comment on above: Performed By: #### B LDCX2 #### [facility] [address] [place] [address] Dr. Mirza Sadler RBC NONE SEEN Abnormal 0-2 [facility] Comment on above: Performed By: #### B LDCX2 #### [facility] [address] [place] [address] Dr. Mirza Sadler SPEC GRAVITY 1.015 Normal 1.005-<=1. 025 [facility] Comment on above: Performed By: #### B LDCX2 #### [facility] [address] [place] [address] Dr. Mirza Sadler UA PROTEIN Negative Normal NEGATIVE/ TRACE [facility] Comment on above: Performed By: #### B LDCX2 #### [facility] [address] [place] [address] Dr. Mirza Sadler Urobilinogen Qn (U) 0.2 {Luisito'U}/dL Normal 0.2 - 1. 0 [facility] Comment on above: Performed By: #### B LDCX2 #### [facility] [address] [place] [address] Dr. Mirza Sadler WBC NONE SEEN Normal NONE SEEN [facility] Comment on above: Performed By: #### B LDCX2 #### [facility] [address] [place] [address] Dr. Mirza Sadler URINE T PROTEIN CREAT RATIOo n 11-30-2021 Protein (U) [Mass/Vol] 22.4 mg/dL Critically high <=12.0 [facility] Comment on above: Performed By: #### U RTPCR #### [facility] [address] [place] [address] Dr. Mirza Sadler UR PROT CREAT RAT 0.31 Normal The [facility] Comment on above: Performed By: #### U RTPCR #### [facility] [address] [place] [address] Dr. Mirza Sadler URINE CREAT 73.05 mg/dL Normal 20.00-300. 00 [facility] Comment on above: Performed By: #### U RTPCR #### [facility] [address] [place] [address] Dr. Mirza Sadler NM HEPATOBILIARY SCAN W [...] HIGINIO FLANAGAN Date: 2021-11-24 11:55 Normal [facility] BNPon 10-27-2021 Natriuretic peptide B (Bld) [Mass/Vol] 574.0 pg/mL Normal <=900.0 [facility] Comment on above: Performed By: #### P T, PTT #### [facility] [address] [address] [address] Mirza Sadler CARDIAC PARUL ADMITon 022 CK [Catalytic activity/Vol] 70 U/L Normal 39-308 [facility] Comment on above: Performed By: #### P T, PTT #### [facility] [address] [address] [address] Mirza Sadler CK.MB [Mass/Vol] 1.10 ng/mL Normal <=3.60 [facility] Comment on above: Performed By: #### P T, PTT #### [facility] [address] [address] [address] Mirza Sadler HSTROP 22.3 pg/mL Normal 4.0-76.1 [facility] Comment on above: Result Comment: CUT- OFF POINTS HAVE BEEN ESTABLISHED BASED ON THE FOURTH UNIVERSAL DEFINITIONS OF MYOCARDIAL INFARCTION. THE UPPER REFERENCE LIMIT (URL) OF TROPONIN, DEFINED THE 99TH PERCENTILE OF cTnI DISTRIBUTION IN A REFERENCE POPULATION, HAS BEEN CONFIRMED THE DECISION THRESHOLD FOR UT DIAGNOSIS. Performed By: #### P T, PTT #### [facility] [address] [place] [address] Dr. Mirza Sadler RACHEL 81 ng/mL Normal 16-96 [facility] Comment on above: Performed By: #### P T, PTT #### [facility] [address] [place] [address] Dr. Mirza Sadler CBC AUTO DIFFon 10-27-2021 BASO # 0.1 103/ul Normal 0.0-0.1 [facility] Comment on above: Performed By: #### E RUR #### [facility] [address] [place] [address] Dr. Mirza Sadler Basophils/100 WBC (Bld) 0.4 % Normal 0.2-2.0 [facility] Comment on above: Performed By: #### E RUR #### [facility] [address] [place] [address] Dr. Mirza Sadler EO # 0.1 103/ul Normal 0.0-0.7 [facility] Comment on above: Performed By: #### E RUR #### [facility] [address] [place] [address] Dr. Mirza Sadler Eosinophils/100 WBC (Bld) 0.4 % Critically low 0.9-7.0 [facility] Comment on above: Performed By: #### E RUR #### [facility] [address] [place] [address] Dr. Mirza Sadler Erythrocyte distribution width (RBC) [Ratio] 14.1 % Normal 11.0-15.0 [facility] Comment on above: Performed By: #### E RUR #### [facility] [address] [place] [address] Dr. Mirza Sadler Hematocrit (Bld) [Volume fraction] 41.0 % Critically low 42.0-54.0 [facility] Comment on above: Performed By: #### E RUR #### [facility] [address] [place] [address] Dr. Mirza Sadler Hemoglobin (Bld) [Mass/Vol] 14.1 g/dL Normal 14.0-18.0 [facility] Comment on above: Performed By: #### E RUR #### [facility] [address] [place] [address] Dr. Mirza Sadler IG # 0.05 10e3/ul Critically high 0.00-0.03 [facility] Comment on above: Performed By: #### E RUR #### [facility] [address] [place] [address] Dr. Mirza Sadler IG % 0.4 % Normal 0.0-0.5 [facility] Comment on above: Performed By: #### E RUR #### [facility] [address] [place] [address] Dr. Mirza Sadler LYMPH # 0.9 103/ul Critically low 1.2-3.8 [facility] Comment on above: Performed By: #### E RUR #### [facility] [address] [place] [address] Dr. Mirza Sadler Lymphocytes/100 WBC (Bld) 6.6 % Critically low 20.5-60.0 [facility] Comment on above: Performed By: #### E RUR #### [facility] [address] [place] [address] Dr. Mirza Sadler MANUAL DIFF REQ NO Normal [facility] Comment on above: Performed By: #### E RUR #### [facility] [address] [place] [address] Dr. Mirza Sadler MCH (RBC) [Entitic mass] 29.7 pg Normal 25.9-34.0 [facility] Comment on above: Performed By: #### E RUR #### [facility] [address] [place] [address] Dr. Mirza Sadler MCHC (RBC) [Mass/Vol] 34.4 g/dL Normal 29.9-35.2 [facility] Comment on above: Performed By: #### E RUR #### [facility] [address] [place] [address] Dr. Mirza Sadler MCV (RBC) [Entitic vol] 86.3 fL Normal 80.0-94.0 [facility] Comment on above: Performed By: #### E RUR #### [facility] [address] [place] [address] Dr. Mirza Sadler MONO # 0.4 103/ul Normal 0.3-0.8 [facility] Comment on above: Performed By: #### E RUR #### [facility] [address] [place] [address] Dr. Mirza Sadler Monocytes/100 WBC (Bld) 2.6 % Normal 1.7-12.0 [facility] Comment on above: Performed By: #### E RUR #### [facility] [address] [place] [address] Dr. Mirza Sadler NEUT # 12.2 103/ul Critically high 1.4-6.5 [facility] Comment on above: Performed By: #### E RUR #### [facility] [address] [place] [address] Dr. Mirza Sadler Neutrophils/100 WBC (Bld) 89.6 % Critically high 43.0-75.0 [facility] Comment on above: Performed By: #### E RUR #### [facility] [address] [place] [address] Dr. Mirza Sadler Platelet mean volume (Bld) [Entitic vol] 9.7 fL Normal 9.5-13.5 [facility] Comment on above: Performed By: #### E RUR #### [facility] [address] [place] [address] Dr. Mirza Sadler PLT 183 103/ul Normal 150-450 [facility] Comment on above: Performed By: #### E RUR #### [facility] [address] [place] [address] Dr. Mirza Sadler RBC 4.75 106/ul Normal 4.70-6.10 [facility] Comment on above: Performed By: #### E RUR #### [facility] [address] [place] [address] Dr. Mirza Sadler WBC 13.7 103/ul Critically high 4.0-11.0 The [facility] Comment on above: Performed By: #### E RUR #### [facility] [address] [place] [address] Dr. Mirza Sadler CULTURE BLOODon 10-27-2021 Microscopic examination of blood, culture Culture Observations: NO GROWTH AT 5 DAYS. Normal [facility] Comment on above: Performed By: #### B LDCX2 #### [facility] [address] [place] [address] Dr. Mirza Sadler Performed By: #### H STROPN #### [facility] [address] [place] [address] Dr. Mirza Sadler Covid-19 PCR ([facility])on 09-30 SARS-CoV-2 (COVID-19) RNA RAMO+probe Ql (Unsp spec) Not detected Normal NOT DETECTED [facility] Comment on above: Result Comment: When [...] for this test is supported by the Ch[employer]ter of Health and Human Service's declaration that [...] Performed By: #### P T, PTT #### [facility] [address] [place] [address] Dr. Mirza Sadler ER URINE PROFILEon Bilirubin Ql (U) Negative Normal NEGATIVE [facility] Comment on above: Performed By: #### H STROPN #### [facility] [address] [place] [address] Dr. Mirza Sadler Clarity (U) CLEAR Normal CLEAR [facility] Comment on above: Performed By: #### H STROPN #### [facility] [address] [address] [address] Mirza Sadler Color (U) YELLOW Normal YELLOW [facility] Comment on above: Performed By: #### H STROPN #### [facility] [address] [address] [address] Mirza Sadler ERUAHD A micrscopic examina tion will be performed if indicated. Normal [facility] Comment on above: Performed By: #### H STROPN #### [facility] [address] [address] [address] Mirza Sadler Glucose Ql (U) >1000 Abnormal NEGATIVE [facility] Comment on above: Performed By: #### H STROPN #### [facility] [address] [address] [address] Mirza Sadler Hemoglobin Ql (U) Negative Normal NEGATIVE [facility] Comment on above: Performed By: #### H STROPN #### [facility] [address] [address] [address] Miraz Sadler Ketones Ql (U) TRACE Abnormal NEGATIVE [facility] Comment on above: Performed By: #### H STROPN #### [facility] [address] [address] [address] Mirza Sadler LEUKOCYTES Negative Normal NEGATIVE [facility] Comment on above: Performed By: #### H STROPN #### [facility] [address] [address] [address] Mirza Sadler Nitrite Ql (U) Negative Normal NEGATIVE [facility] Comment on above: Performed By: #### H STROPN #### [facility] [address] [address] [address] Mirza Sadler pH (U) 5.5 [pH] Normal 5-9 [facility] Comment on above: Performed By: #### H STROPN #### [facility] [address] [address] [address] Mirza Sadler SPEC GRAVITY 1.010 Normal 1.005-<=1. 025 [facility] Comment on above: Performed By: #### H STROPN #### [facility] [address] [place] [address] Dr. Mirza Sadler UA PROTEIN Negative Normal NEGATIVE/ TRACE [facility] Comment on above: Performed By: #### H STROPN #### [facility] [address] [place] [address] Dr. Mirza Sadler UR MICRO IND NOT INDICATED Normal [facility] Comment on above: Performed By: #### H STROPN #### [facility] [address] [place] [address] Dr. Mirza Sadler Urobilinogen Qn (U) 0.2 {Luisito'U}/dL Normal 0.2 - 1. 0 [facility] Comment on above: Performed By: #### H STROPN #### [facility] [address] [place] [address] Dr. Mirza Sadler INFLUENZA A AND B [facility] Normal [facility] Comment on above: Result Comment: Nega tive for Flu A protein angiten. Infection due to Flu A cannot be ruled out. Flu A angiten in the sample may be below the detection limit of the test. Performed By: #### B OPENSTACK CLOUD CONSULTING ARCHITECT #### [facility] [address] [place] [address] Dr. Mirza Sadler INFLUBNEG SEE BELOW Normal [facility] Comment on above: Result Comment: Nega tive for Flu B protein antigen. Infection due to Flu B cannot be ruled out. Flu B antigen in the sample may be below the detection limit of the test. Performed By: #### B OPENSTACK CLOUD CONSULTING ARCHITECT #### [facility] [address] [place] [address] Dr. Mirza Sadler INFLUENZA A AG Negative Normal NEGATIVE SEE COMMENT [facility] Comment on above: Performed By: #### B OPENSTACK CLOUD CONSULTING ARCHITECT #### [facility] [address] [place] [address] Dr. Mirza Sadler INFLUENZA B AG Negative Normal NEGATIVE SEE COMMENT [facility] Comment on above: Performed By: #### B OPENSTACK CLOUD CONSULTING ARCHITECT #### [facility] [address] [place] [address] Dr. Mirza Sadler INTERNAL CONTROLS Within Normal Limits Normal Wi thin Normal Limits [facility] Comment on above: Performed By: #### B OPENSTACK CLOUD CONSULTING ARCHITECT #### [facility] [address] [place] [address] Dr. Mirza Sadler LACTATE/LACTIC ACIDon 2021 Lactate [Moles/Vol] 1.8 mmol/L Normal 0.4-1.9 [facility] Comment on above: Performed By: #### C MP, CMADM #### [facility] [address] [place] [address] Dr. Mirza Sadler LIPASEon 10-27-2021 Lipase [Catalytic activity/Vol] 87.0 U/L Normal 73.0-393.0 [facility] Comment on above: Performed By: #### P T, PTT #### [facility] [address] [place] [address] Dr. Mirza Sadler PH VENOUS BLOODon 10-27-2021 PCO2 VENOUS 37.6 mmHg Critically low 40.0-52.0 [facility] Comment on above: Performed By: #### P T, PTT #### [facility] [address] [place] [address] Dr. Mirza Sadler pH VENOUS 7.422 Normal 7.330-7.43 0 [facility] Comment on above: Performed By: #### P T, PTT #### [facility] [address] [place] [address] Dr. Mirza Sadler PROF 14(COMP METB)on 022 Albumin [Mass/Vol] 4.2 g/dL Normal 3.4-5.0 [facility] Comment on above: Performed By: #### P T, PTT #### [facility] [address] [place] [address] Dr. Mirza Sadler Albumin/Globulin [Mass ratio] 1.3 {ratio} Normal [facility] Comment on above: Performed By: #### P T, PTT #### [facility] [address] [place] [address] Dr. Mirza Sadler ALP [Catalytic activity/Vol] 121 U/L Critically high 46-116 [facility] Comment on above: Performed By: #### P T, PTT #### [facility] [address] [place] [address] Dr. Mirza Sadler ALT [Catalytic activity/Vol] 22 U/L Normal 16-63 [facility] Comment on above: Performed By: #### P T, PTT #### [facility] [address] [address] [address] Mirza Sadler Anion gap [Moles/Vol] 16.0 mmol/L Normal Th [facility] Comment on above: Performed By: #### P T, PTT #### [facility] [address] [address] [address] Mirza Sadler AST [Catalytic activity/Vol] 18 U/L Normal 15-37 [facility] Comment on above: Performed By: #### P T, PTT #### [facility] [address] [place] [address] Dr. Mirza Sadler Bilirubin [Mass/Vol] 1.3 mg/dL Critically high 0.2-1.0 [facility] Comment on above: Performed By: #### P T, PTT #### [facility] [address] [place] [address] Dr. Mirza Sadler Calcium [Mass/Vol] 8.9 mg/dL Normal 8.5-10.1 [facility] Comment on above: Performed By: #### P T, PTT #### [facility] [address] [place] [address] Dr. Mirza Sadler Chloride [Moles/Vol] 105 mmol/L Normal 98-107 [facility] Comment on above: Performed By: #### P T, PTT #### [facility] [address] [address] [address] Mirza Sadler CO2 [Moles/Vol] 23.7 mmol/L Normal 21.0-32.0 [facility] Comment on above: Performed By: #### P T, PTT #### [facility] [address] [address] [address] Mirza Sadler Creatinine [Mass/Vol] 1.79 mg/dL Critically high 0.70-1.30 [facility] Comment on above: Performed By: #### P T, PTT #### [facility] [address] [address] [address] Mirza Sadler EGFR-AF [place] 46 mL/min/1.73m2 Critically low >=60 [facility] Comment on above: Performed By: #### P T, PTT #### [facility] [address] [address] [address] Mirza Sadler EGFR-NON AF [place] 38 mL/min/1.73m2 Critically low >=60 [facility] Comment on above: Performed By: #### P T, PTT #### [facility] [address] [place] [address] Dr. Mirza Sadler Globulin (S) [Mass/Vol] 3.3 g/dL Normal [facility] Comment on above: Performed By: #### P T, PTT #### [facility] [address] [place] [address] Dr. Mirza Sadler Glucose [Mass/Vol] 195 mg/dL Critically high 74-106 [facility] Comment on above: Performed By: #### P T, PTT #### [facility] [address] [place] [address] Dr. Mirza Sadler Potassium [Moles/Vol] 3.7 mmol/L Normal 3.5-5.1 [facility] Comment on above: Performed By: #### P T, PTT #### [facility] [address] [place] [address] Dr. Mirza Sadler Protein [Mass/Vol] 7.5 g/dL Normal 6.4-8.2 [facility] Comment on above: Performed By: #### P T, PTT #### [facility] [address] [place] [address] Dr. Mirza Sadler Sodium [Moles/Vol] 141 mmol/L Normal 136-145 [facility] Comment on above: Performed By: #### P T, PTT #### [facility] [address] [place] [address] Dr. Mirza Sadler Urea nitrogen [Mass/Vol] 25.0 mg/dL Critically high 7.0-18.0 [facility] Comment on above: Performed By: #### P T, PTT #### [facility] [address] [place] [address] Dr. Mirza Sadler Urea nitrogen/Creatinine [Mass ratio] 14.0 mg/mg Normal [facility] Comment on above: Performed By: #### P T, PTT #### [facility] [address] [place] [address] Dr. Mirza Sadler PROTIMEon 10-27-2021 INR Coag (PPP) [Relative time] 1.07 {INR} Normal [facility] Comment on above: Performed By: #### P T, PTT #### [facility] [address] [place] [address] Dr. Mirza Sadler INR GUIDELINES SEE BELOW Normal [facility] Comment on above: Result Comment: RIVKA RED INR: 2.0 - 3.0 CONDITIONS NOT LISTED BELOW 2.5 - 3.5 FOR PROSTHETIC HEART VALVE REPLACEMENT 2.5 - 3.5 RECURRENT THROMBOSIS Performed By: #### P T, PTT #### [facility] [address] [place] [address] Dr. Mirza Sadler PT Coag (PPP) [Time] 11.5 s Normal 9.0-11.6 [facility] Comment on above: Performed By: #### P T, PTT #### [facility] [address] [place] [address] Dr. Mirza Sadler PTTon 10-27-2021 aPTT Coag (Bld) [Time] 25.1 s Normal 22.3-36.2 [facility] Comment on above: Performed By: #### P T, PTT #### [facility] [address] [place] [address] Dr. Mirza Sadler XR CHEST 1 Von [...] by: GAGAN CAREY Date: 2021-10-27 10:21 Normal [facility] 10-20-2021 CNPN Telephone (HEMASA) -- LANI LIZAMA ([id number]) 1950 M Date Time Provider Department 10/20/21 ABDON WALKER BRANDI During your visit today, we recorded the [...] [D47.2] Order(s):CBC + DIFF [SQCBCDIF] Order #: [id number] FUTURE Prescriptions as of 10/24/2021 - famotidine [...] Status:Closed by VEE DAY on 10/24/21 Normal [facility] RAD - CT Reporton 10-06-2021 RAD - CT Report [id number]:127 Normal [facility] CT ABD/PELVIS WO CONon 10-03 [...] by: HIGINIO FLANAGAN Date: 2021-10-03 16:29 Normal [facility] Ambulatory Visit Summaryon 0 09-29-2021 [...] RLQ ASHD (arteriosclerotic heart disease) Atheroscler of tulalip artery of both legs with intermit claudication [...] infrarenal abdominal aorta due to atherosclerosis Normal [facility] Outside Colonoscopyon 2021 Outside Colonoscopy [id number]:127 Normal [facility] Physician Referralon 022 Physician Referral [id number]:127 Normal [facility] PROF 14(COMP METB)on 022 Albumin [Mass/Vol] 4.1 g/dL Normal 3.4-5.0 [facility] Comment on above: Performed By: #### P T, PTT #### [facility] [address] [place] [address] Dr. Mirza Sadler Albumin/Globulin [Mass ratio] 1.2 {ratio} Normal [facility] Comment on above: Performed By: #### P T, PTT #### [facility] [address] [address] [address] Mirza Sadler ALP [Catalytic activity/Vol] 132 U/L Critically high 46-116 [facility] Comment on above: Performed By: #### P T, PTT #### [facility] [address] [address] [address] Mirza Sadler ALT [Catalytic activity/Vol] 30 U/L Normal 16-63 [facility] Comment on above: Performed By: #### P T, PTT #### [facility] [address] [place] [address] Dr. Mirza Sadler Anion gap [Moles/Vol] 10.7 mmol/L Normal Th [facility] Comment on above: Performed By: #### P T, PTT #### [facility] [address] [place] [address] Dr. Mirza Sadler AST [Catalytic activity/Vol] 21 U/L Normal 15-37 [facility] Comment on above: Performed By: #### P T, PTT #### [facility] [address] [place] [address] Dr. Mirza Sadler Bilirubin [Mass/Vol] 0.7 mg/dL Normal 0.2-1.0 [facility] Comment on above: Performed By: #### P T, PTT #### [facility] [address] [place] [address] Dr. Mirza Sadler Calcium [Mass/Vol] 9.0 mg/dL Normal 8.5-10.1 [facility] Comment on above: Performed By: #### P T, PTT #### [facility] [address] [place] [address] Dr. Mirza Sadler Chloride [Moles/Vol] 106 mmol/L Normal 98-107 [facility] Comment on above: Performed By: #### P T, PTT #### [facility] [address] [place] [address] Dr. Mirza Sadler CO2 [Moles/Vol] 27.5 mmol/L Normal 21.0-32.0 [facility] Comment on above: Performed By: #### P T, PTT #### [facility] [address] [place] [address] Dr. Mirza Sadler Creatinine [Mass/Vol] 1.77 mg/dL Critically high 0.70-1.30 [facility] Comment on above: Performed By: #### P T, PTT #### [facility] [address] [place] [address] Dr. Mirza Sadler EGFR-AF [place] 46 mL/min/1.73m2 Critically low >=60 [facility] Comment on above: Performed By: #### P T, PTT #### [facility] [address] [address] [address] Mirza Sadler EGFR-NON AF [place] 38 mL/min/1.73m2 Critically low >=60 [facility] Comment on above: Performed By: #### P T, PTT #### [facility] [address] [address] [address] Mirza Sadler Globulin (S) [Mass/Vol] 3.5 g/dL Normal [facility] Comment on above: Performed By: #### P T, PTT #### [facility] [address] [place] [address] Dr. Mirza Sadler Glucose [Mass/Vol] 135 mg/dL Critically high 74-106 [facility] Comment on above: Performed By: #### P T, PTT #### [facility] [address] [address] [address] Mirza Sadler Potassium [Moles/Vol] 4.2 mmol/L Normal 3.5-5.1 [facility] Comment on above: Performed By: #### P T, PTT #### [facility] [address] [place] [address] Dr. Mirza Sadler Protein [Mass/Vol] 7.6 g/dL Normal 6.4-8.2 [facility] Comment on above: Performed By: #### P T, PTT #### [facility] [address] [place] [address] Dr. Mirza Sadler Sodium [Moles/Vol] 140 mmol/L Normal 136-145 [facility] Comment on above: Performed By: #### P T, PTT #### [facility] [address] [address] [address] Mirza Sadler Urea nitrogen [Mass/Vol] 17.0 mg/dL Normal 7.0-18.0 [facility] Comment on above: Performed By: #### P T, PTT #### [facility] [address] [address] [address] Mirza Sadler Urea nitrogen/Creatinine [Mass ratio] 9.6 mg/mg Normal [facility] Comment on above: Performed By: #### P T, PTT #### [facility] [id number] Mirza Sadler US SINGLE QUAD RT [...] HIGINIO FLANAGAN Date: 2021-08-27 08:40 Normal [facility] A1C HEMOGLOBINon 07-17-2021 HbA1c (Bld) [Mass fraction] 6.9 % [employer] Other Glucose - FINGER STICKon Glucose [Mass/Vol] 180 mg/dL [employer] Other HbA1c (Bld) [Mass fraction]o n 07-17-2021 A1C HEMOGLOBIN [facility] [employer] Other A1C with Estimated Average G luon 04-10-2021 HbA1c (Bld) [Mass fraction] 6.4 % [employer] Other HbA1c (Bld) [Mass fraction] 243 % [employer] Other Glucoseon 04-10-2021 Glucose [Mass/Vol] 243 mg/dL [employer] Other A1C HEMOGLOBINon 01-03-2021 HbA1c (Bld) [Mass fraction] 6.6 % [employer] Other Glucose - FINGER STICKon Glucose [Mass/Vol] 142 mg/dL [employer] Other HbA1c (Bld) [Mass fraction]o n 01-03-2021 A1C HEMOGLOBIN [facility] [employer] Other CNPNon 10-27-2020 CNPN Telephone ([facility]) -- LANI LIZAMA ([id number]) 1950 Date Time Provider Department 10/27/20 ANGELINE WARE [...] Status:Closed by ANGELINE WARE on 10/28/20 Normal [facility] Cardiovascular Lab Reporton 10-16-2018 Cardiovascular Lab Report [facility] Patient Name: Lani Lizama [facility] MR #: [id number] Physician: Pinky Bishop Department of M.D. Medicine Service Date: 10/15/2018 Division of Birthdate: 1950 Cardiology Room #: [id number] Adult Cardiovascular Services [facility] [address] [place], [place] [address] Cardiovascular Laboratory Report FINAL IMPRESSIONS: 1. Severe three-vessel tulalip coronary artery disease. 2. Upgu-zx-eiye bypass grafts patent. 3. Mild in-stent restenosis [...] 4. Follow up with me in the [facility] in the next 4-6 weeks. 5. [...] guidance and using a micropuncture kit. A 6-Vincentian Glidesheath was inserted without difficulty. Coronary angiography [...] of the vessel. There is evidence of kaie-hk-vzewa collaterals. The distal vessel is supplied via [...] is a long stented segment in the asqrtgyu-rj-mygqik portion of the vessel with 30% in-stent restenosis. The vessel distal to the touchdown shows caliber reduction and no discrete stenosis. There is diffuse disease in the branches. Saphenous vein graft to the posterior descending artery. This is widely patent. It shows an extensive stented segment from ulqifbrs-ft-eaiyfygalg of the vessel. There is a 40%-50% [...] Jayshree Bishop M.D. Date Trans: 10/16/2018 05:01 A/mmo [id number] cc: Harley Crespo D.O. [address] [place] [address] [place] [address] Normal [facility] BASIC METABOLIC PANELon 09-29 Calcium [Mass/Vol] 8.9 mg/dL Normal 8.6-10.3 [facility] Comment on above: Order Comment: No: D o not add to previous draw Performed By: #### 1 0, [id number] #### [facility] [address] [place] [address], [place] Chloride [Moles/Vol] 110 mmol/L High 98-107 [facility] Comment on above: Order Comment: No: D o not add to previous draw Performed By: #### 1 69, 78403 #### [facility] [address] [place] [address], [place] CO2 [Moles/Vol] 26 mmol/L Normal 21-31 [facility] Comment on above: Order Comment: No: D o not add to previous draw Performed By: #### 1 69, 67306 #### [facility] [address] [place] [address], [place] Creatinine [Mass/Vol] 1.52 mg/dL High 0.70-1.30 [facility] Comment on above: Order Comment: No: D o not add to previous draw Performed By: #### 1 69, 75741 #### [facility] [address] [place] [address], [place] GFR/1.73 sq M predicted among blacks MDRD (S/P/Bld) [Vol rate/Area] 56 ml/min/1.73sq m Abnormal >60 [facility] Comment on above: Order Comment: No: D o not add to previous draw Performed By: #### 1 69, 72448 #### [facility] [address] [place] [address], [place] GFR/1.73 sq M predicted among non-blacks MDRD (S/P/Bld) [Vol rate/Area] 46 ml/min/1.73sq m Abnormal >60 [facility] Comment on above: Order Comment: No: D o not add to previous draw Performed By: #### 1 69, 98819 #### [facility] [address] [place] [address], [place] Glucose [Mass/Vol] 89 mg/dL Normal 70-100 [facility] Comment on above: Order Comment: No: D o not add to previous draw Performed By: #### 1 69, 85458 #### [facility] [address] [place] [id number], [facility] Potassium [Moles/Vol] 3.9 mmol/L Normal 3.5-5.1 [facility] Comment on above: Order Comment: No: D o not add to previous draw Performed By: #### 1 69, 47160 #### [facility] [address] [place] [address], [place] Sodium [Moles/Vol] 141 mmol/L Normal 136-145 [facility] Comment on above: Order Comment: No: D o not add to previous draw Performed By: #### 1 69, 67418 #### [facility] [address] [place] [address], [facility] Urea nitrogen [Mass/Vol] 19 mg/dL Normal 7-25 [facility] Comment on above: Order Comment: No: D o not add to previous draw Performed By: #### 1 69, 51616 #### [facility] [address] [place] [id number], [place] CBC W/DIFFon 10-15-2018 ABS BASOPHILS 0.1 10*3/uL Normal 0.0-0.2 [facility] Comment on above: Order Comment: No: D o not add to previous draw Performed By: #### 5 0103 #### [facility] [address] [place] [address], [facility] ABS IMM GRANS 0.0 10*3/uL Normal 0.0-0.2 [facility] Comment on above: Order Comment: No: D o not add to previous draw Performed By: #### 5 0103 #### [facility] [address] [place] [id number], [facility] ABS NEUTROPHILS 3.5 10*3/uL Normal 1.6-7.6 [facility] Comment on above: Order Comment: No: D o not add to previous draw Performed By: #### 5 0103 #### [facility] [address] [facility] [place] [address], [facility] Basophils/100 WBC (Bld) 0.8 % Normal 0.0-1.0 [facility] Comment on above: Order Comment: No: D o not add to previous draw Performed By: #### 5 0103 #### [facility] [address] [place] [address], [facility] Eosinophils (Bld) [#/Vol] 0.3 10*3/uL Normal 0.0-0.5 [facility] Comment on above: Order Comment: No: D o not add to previous draw Performed By: #### 5 0103 #### [facility] [address] [address], [facility] Eosinophils/100 WBC (Bld) 3.9 % Normal 0.0-6.0 [facility] Comment on above: Order Comment: No: D o not add to previous draw Performed By: #### 5 0103 #### [facility] [address] [address], [facility] Erythrocyte distribution width (RBC) [Ratio] 13.5 % Normal 11.5-15.0 [facility] Comment on above: Order Comment: No: D o not add to previous draw Performed By: #### 5 0103 #### [facility] [address] Hematocrit (Bld) [Volume fraction] 39.7 % Normal 39.0-50.0 [facility] Comment on above: Order Comment: No: D o not add to previous draw Performed By: #### 5 0103 #### [facility] [address] [place] [id number], [facility] Hemoglobin (Bld) [Mass/Vol] 13.0 g/dL Normal 13.0-17.0 [facility] Comment on above: Order Comment: No: D o not add to previous draw Performed By: #### 5 0103 #### [facility] [address] [place] [address], [facility] IMMATURE GRANS 0.3 % Normal 0.0-1.0 [facility] Comment on above: Order Comment: No: D o not add to previous draw Performed By: #### 5 0103 #### [facility] [address] [place] [address], [facility] Lymphocytes (Bld) [#/Vol] 1.9 10*3/uL Normal 1.2-4.0 [facility] Comment on above: Order Comment: No: D o not add to previous draw Performed By: #### 5 0103 #### [facility] [address] [place] [address], [facility] Lymphocytes/100 WBC (Bld) 30.1 % Normal 20.0-45.0 [facility] Comment on above: Order Comment: No: D o not add to previous draw Performed By: #### 5 0103 #### [facility] [address] [place] [address], [facility] MCH (RBC) [Entitic mass] 30.0 pg Normal 27.0-33.0 [facility] Comment on above: Order Comment: No: D o not add to previous draw Performed By: #### 5 0103 #### [facility] [address] [place] [address], [facility] MCHC (RBC) [Mass/Vol] 32.7 g/dL Normal 32.0-35.0 [facility] Comment on above: Order Comment: No: D o not add to previous draw Performed By: #### 5 0103 #### [facility] [address] [place] [address], [facility] MCV (RBC) [Entitic vol] 91.5 fL Normal 82.0-98.0 [facility] Comment on above: Order Comment: No: D o not add to previous draw Performed By: #### 5 0103 #### [facility] [address] [place] [address], [facility] Monocytes (Bld) [#/Vol] 0.7 10*3/uL Normal 0.1-1.0 [facility] Comment on above: Order Comment: No: D o not add to previous draw Performed By: #### 5 0103 #### [facility] [address] [facility] [address] MONOS 10.7 % Normal 5.0-12.0 [facility] Comment on above: Order Comment: No: D o not add to previous draw Performed By: #### 5 0103 #### [facility] [address] [facility] [place] [address], [facility] Neutrophils/100 WBC (Bld) 54.2 % Normal 40.0-72.0 [facility] Comment on above: Order Comment: No: D o not add to previous draw Performed By: #### 5 0103 #### [facility] [address] [facility] [place] [address], [facility] Nucleated RBC/100 WBC (Bld) [Ratio] 0 % Normal 0-0 [facility] Comment on above: Order Comment: No: D o not add to previous draw Performed By: #### 5 0103 #### [facility] [address] [place] [address], [facility] PLAT CNT 164 10*3/uL Normal 150-400 [facility] Comment on above: Order Comment: No: D o not add to previous draw Performed By: #### 5 0103 #### [facility] [address] [place] [address], [facility] RBC (Bld) [#/Vol] 4.34 10*6/uL Normal 4.20-5.70 [facility] Comment on above: Order Comment: No: D o not add to previous draw Performed By: #### 5 0103 #### [facility] [address] [place] [address], [facility] WBC (Bld) [#/Vol] 6.38 10*3/uL Normal 4.00-10.60 [facility] Comment on above: Order Comment: No: D o not add to previous draw Performed By: #### 5 0103 #### [facility] [address] MAGNESIUM BLOODon 10-15-2018 Magnesium [Mass/Vol] 2.0 mg/dL Normal 1.9-2.7 [facility] Comment on above: Order Comment: No: D o not add to previous draw Performed By: #### 1 0070, 89067 #### [facility] [address] PROTHROMBIN TIMEon 9 INR Coag (PPP) [Relative time] 1.11 {INR} Normal 0.91-1.16 [facility] Comment on above: Order Comment: No: D [...] 1995;[id number]. Performed By: #### 5 6101 #### [address] PT Coag (PPP) [Time] 14.3 s Normal 12.3-14.8 [facility] Comment on above: Order Comment: No: D o not add to previous draw Result Comment: ALL RESULTS MUST BE INTERPRETED WITH RESPECT TO BLOOD DRAWING ARTIFACT OR DILUTION ERROR OF ANTICOAGULANT AT THE TIME OF SAMPLING. Performed By: #### 5 6101 #### [address] POC GLUCOSE LABon 10-14-2018 Glucose [Mass/Vol] 180 mg/dL High 70-100 [facility] Comment on above: Performed By: #### 8 5499 #### [address] Cardiovascular Lab Reporton 02-25-2018 Cardiovascular Lab Report [facility] Patient Name: Lani Lizama [facility] MR #: [id number] Physician: Pinky Bishop, Department of M.D. Medicine Service Date: 02/24/2018 Division of Birthdate: 1950 Cardiology Room #: [id number] Adult Cardiovascular Services [place] [address] Cardiovascular Laboratory Report FINAL IMPRESSIONS: 1. 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 2. Severe 3-vessel tulalip coronary artery disease. 3. 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 4. Ufxwlsym-un-lzeksx systemic hypertension. RECOMMENDATIONS: 1. Aspirin 81 mg lifelong. 2. Plavix 75 mg daily for a minimum of 6 months, preferably retirement. 3. Aggressive cardiovascular risk factor modification. 4. Optimization of medical management; high intensity statin therapy as tolerated, we will switch his Toprol-XL to Coreg 25 mg p.o. b.i.d., and angiotensin-converting enzyme inhibitor. 5. Follow up with me in the [facility] in the next 2-3 weeks. 6. Follow up with Dr. Crespo as scheduled. PROCEDURES: Limited femoral angiography, bilateral selective coronary angiography, saphenous vein graft angiography, angiography of the left internal mammary artery graft, limited angiography of the left subclavian, percutaneous balloon angioplasty, and Synergy drug-eluting stent placement to the saphenous vein graft to the obtuse marginal, placement of a 6-Vincentian MYNXGRIP closure device. METHODS: After risks, benefits, and alternatives were explained, written informed consent was obtained. The patient was prepped and draped in usual sterile fashion over both groins. Using 1% lidocaine solution, local infiltration anesthesia was achieved over the right groin. Using a micropuncture kit, access of the right common femoral artery was obtained. A 6-Vincentian 11 cm sheath was exchanged then without [...] to proceed with an interventional procedure. A 6-Vincentian JR4 guide catheter was advanced in and [...] the procedure. All catheters were removed. A 6-Vincentian MYNXGRIP closure device was deployed per protocol [...] is a 30% touchdown stenosis of the tulalip vessel. There is evidence of bgzu-yx-hcztu collaterals supplying the distal right coronary artery. Limited femoral angiography, this shows mild plaque and anatomy suitable for closure device. INDICATIONS: Unstable angina. Electronically Signed by: Pinky Bishop M.D. 03/06/2018 12:15 P Pinky Bishop M.D. Date Dict: 02/24/2018/01:39 P/Pinky Bishop M.D. Date Trans: 02/25/2018 02:12 Brandie [id number] cc: Harley Crespo D.O. [address] [place] [id number] Normal [facility] POC GLUCOSE LABon 02-25-2018 Glucose [Mass/Vol] 150 mg/dL High 70-100 [facility] Comment on above: Performed By: #### 8 5499 #### [facility] [address] [place] [address], [facility] POC GLUCOSE LABon 02-24-2018 Glucose [Mass/Vol] 192 mg/dL High 70-100 [facility] Comment on above: Performed By: #### 8 5499 #### [facility] [address] [facility] [place] [address], [facility] Glucose [Mass/Vol] 186 mg/dL High 70-100 [facility] Comment on above: Performed By: #### 8 5499 #### [facility] [address] [place] [address], [facility] Vital Signs Date Time Vital Sign Value Performing Clinician Facility 04-30-2024 09:42-0500 Body height 170.18 cm [facility] 04-30-2024 09:42-0500 Body mass index (BMI) [Ratio] 27.9 kg/m2 [facility] 04-30-2024 09:42-0500 Body weight 80.96 kg [facility] 04-30-2024 09:42-0500 Diastolic blood pressure 80 mm[Hg] [facility] 04-30-2024 09:42-0500 Heart rate 81 /min [facility] 04-30-2024 09:42-0500 Respiratory rate 18 /min [facility] 04-30-2024 09:42-0500 SaO2% (BldA) [Mass fraction] 98 % [facility] 04-30-2024 09:42-0500 Systolic blood pressure 134 mm[Hg] [facility] 04-16-2024 08:24-0500 Body height 170.18 cm [facility] 04-16-2024 08:24-0500 Body mass index (BMI) [Ratio] 28.2 kg/m2 [facility] 04-16-2024 08:24-0500 Body weight 81.76 kg [facility] 04-16-2024 08:24-0500 Diastolic blood pressure 80 mm[Hg] [facility] 04-16-2024 08:24-0500 Heart rate 84 /min [facility] 04-16-2024 08:24-0500 Respiratory rate 12 /min [facility] 04-16-2024 08:24-0500 SaO2% (BldA) [Mass fraction] 97 % [facility] 04-16-2024 08:24-0500 Systolic blood pressure 137 mm[Hg] [facility] 04-02-2024 11:44-0500 Body height 170.2 cm Kenneth Tavera DPM Work Phone: [facility] 04-02-2024 11:44-0500 Body mass index (BMI) [Ratio] 26.78 kg/m2 Kenneth Tavera DPM Work Phone: [facility] 04-02-2024 11:44-0500 Body weight 77.56 kg Kenneth Tavera DPM Work Phone: [facility] 04-02-2024 11:44-0500 Respiratory rate 18 /min Kenneth Tavera DPM Work Phone: [facility] 02-24-2024 09:46-0500 Body height 170.18 cm [facility] 02-24-2024 09:46-0500 Body mass index (BMI) [Ratio] 27.1 kg/m2 [facility] 02-24-2024 09:46-0500 Body weight 78.47 kg [facility] 02-24-2024 09:46-0500 Diastolic blood pressure 68 mm[Hg] [facility] 02-24-2024 09:46-0500 Heart rate 80 /min [facility] 02-24-2024 09:46-0500 SaO2% (BldA) [Mass fraction] 97 % [facility] 02-24-2024 09:46-0500 Systolic blood pressure 110 mm[Hg] [facility] 01-23-2024 11:29-0400 Body height 170.2 cm Kenneth Tavera DPM Work Phone: [facility] 01-23-2024 11:29-0400 Body mass index (BMI) [Ratio] 26.78 kg/m2 Kenneth Tavera DPM Work Phone: [facility] 01-23-2024 11:29-0400 Body weight 77.56 kg Kenneth Tavera DPM Work Phone: [facility] 01-23-2024 11:29-0400 Diastolic blood pressure 82 mm[Hg] Kenneth Tavera DPM Work Phone: [facility] 01-23-2024 11:29-0400 Heart rate 88 /min Kenneth Tavera DPM Work Phone: [facility] 01-23-2024 11:29-0400 Systolic blood pressure 128 mm[Hg] Kenneth Tavera DPM Work Phone: [facility] 01-23-2024 09:05-0400 Body height 170.18 cm [facility] 01-23-2024 09:05-0400 Body mass index (BMI) [Ratio] 27.3 kg/m2 [facility] 01-23-2024 09:05-0400 Body weight 79.37 kg [facility] 01-23-2024 09:05-0400 Diastolic blood pressure 71 mm[Hg] [facility] 01-23-2024 09:05-0400 Heart rate 78 /min [facility] 01-23-2024 09:05-0400 Respiratory rate 18 /min [facility] 01-23-2024 09:05-0400 SaO2% (BldA) [Mass fraction] 98 % [facility] 01-23-2024 09:05-0400 Systolic blood pressure 106 mm[Hg] [facility] 01-07-2024 08:26-0400 Body height 170.18 cm [facility] 01-07-2024 08:26-0400 Body mass index (BMI) [Ratio] 27.2 kg/m2 [facility] 01-07-2024 08:26-0400 Body temperature 96.7 [degF] [facility] 01-07-2024 08:26-0400 Body weight 78.98 kg [facility] 01-07-2024 08:26-0400 Diastolic blood pressure 77 mm[Hg] [facility] 01-07-2024 08:26-0400 Heart rate 91 /min [facility] 01-07-2024 08:26-0400 Respiratory rate 16 /min [facility] 01-07-2024 08:26-0400 SaO2% (BldA) [Mass fraction] 97 % [facility] 01-07-2024 08:26-0400 Systolic blood pressure 123 mm[Hg] [facility] 12-12-2023 08:25-0400 Body height 170.18 cm [facility] 12-12-2023 08:25-0400 Body mass index (BMI) [Ratio] 27.4 kg/m2 [facility] 12-12-2023 08:25-0400 Body weight 79.49 kg [facility] 12-12-2023 08:25-0400 Diastolic blood pressure 79 mm[Hg] [facility] 12-12-2023 08:25-0400 Heart rate 80 /min [facility] 12-12-2023 08:25-0400 Respiratory rate 12 /min [facility] 12-12-2023 08:25-0400 Systolic blood pressure 127 mm[Hg] [facility] 10-17-2023 09:21-0400 Body height 170.18 cm [facility] 10-17-2023 09:21-0400 Body mass index (BMI) [Ratio] 28.2 kg/m2 [facility] 10-17-2023 09:21-0400 Body weight 81.81 kg [facility] 10-17-2023 09:21-0400 Diastolic blood pressure 79 mm[Hg] [facility] 10-17-2023 09:21-0400 Heart rate 70 /min [facility] 10-17-2023 09:21-0400 Respiratory rate 18 /min [facility] 10-17-2023 09:21-0400 SaO2% (BldA) [Mass fraction] 97 % [facility] 10-17-2023 09:21-0400 Systolic blood pressure 133 mm[Hg] [facility] 08-12-2023 08:37-0400 Body height 170.18 cm [facility] 08-12-2023 08:37-0400 Body mass index (BMI) [Ratio] 27.6 kg/m2 [facility] 08-12-2023 08:37-0400 Body weight 79.88 kg [facility] 08-12-2023 08:37-0400 Diastolic blood pressure 84 mm[Hg] [facility] 08-12-2023 08:37-0400 Heart rate 82 /min [facility] 08-12-2023 08:37-0400 Respiratory rate 12 /min [facility] 08-12-2023 08:37-0400 Systolic blood pressure 134 mm[Hg] [facility] 07-02-2023 08:54-0400 Body height 170.18 cm [facility] 07-02-2023 08:54-0400 Body mass index (BMI) [Ratio] 27.3 kg/m2 [facility] 07-02-2023 08:54-0400 Body temperature 96.5 [degF] [facility] 07-02-2023 08:54-0400 Body weight 79.09 kg [facility] 07-02-2023 08:54-0400 Diastolic blood pressure 79 mm[Hg] [facility] 07-02-2023 08:54-0400 Heart rate 87 /min [facility] 07-02-2023 08:54-0400 Respiratory rate 18 /min [facility] 07-02-2023 08:54-0400 SaO2% (BldA) [Mass fraction] 96 % [facility] 07-02-2023 08:54-0400 Systolic blood pressure 120 mm[Hg] [facility] 06-18-2023 10:51-0400 Body height 170.18 cm [facility] 06-18-2023 10:51-0400 Body mass index (BMI) [Ratio] 26.6 kg/m2 [facility] 06-18-2023 10:51-0400 Body weight 77.11 kg [facility] 06-18-2023 10:51-0400 Diastolic blood pressure 84 mm[Hg] [facility] 06-18-2023 10:51-0400 Heart rate 95 /min [facility] 06-18-2023 10:51-0400 Respiratory rate 18 /min [facility] 06-18-2023 10:51-0400 SaO2% (BldA) [Mass fraction] 97 % [facility] 06-18-2023 10:51-0400 Systolic blood pressure 127 mm[Hg] [facility] 05-03-2023 09:30-0500 Body height 170.18 cm DO Harley Ball Work Phone: [facility] 05-03-2023 09:30-0500 Body weight 77.29 kg DO Harley Ball Work Phone: [facility] 05-03-2023 09:30-0500 Diastolic blood pressure 85 mm[Hg] DO Harley Ball Work Phone: [facility] 05-03-2023 09:30-0500 Systolic blood pressure 126 mm[Hg] DO Harley Ball Work Phone: [facility] 03-12-2023 11:15-0500 Body height 170.18 cm Tondra Mapus Other [facility] 03-12-2023 11:15-0500 Body mass index (BMI) [Ratio] 27.03 kg/m2 Tondra Mapus Other [employer] Other 03-12-2023 11:15-0500 Body weight 78.29 kg Tondra Mapus Other [facility] 03-12-2023 11:15-0500 Diastolic blood pressure 79 mm[Hg] Tondra Mapus Other [facility] 03-12-2023 11:15-0500 Respiratory rate 18 /min Tondra Mapus Other [employer] Other 03-12-2023 11:15-0500 SaO2% (BldA) [Mass fraction] 98 % Tondra Mapus Other [employer] Other 03-12-2023 11:15-0500 Systolic blood pressure 128 mm[Hg] Tondra Mapus Other [facility] 01-07-2023 10:00-0400 Body height 170.18 cm Kingsley Latisha Other [employer] Other 01-07-2023 10:00-0400 Body mass index (BMI) [Ratio] 27 kg/m2 Kingsley Latisha Other [employer] Other 01-07-2023 10:00-0400 Body temperature 97.7 [degF] Kingsley Latisha Other [employer] Other 01-07-2023 10:00-0400 Body weight 78.2 kg Kingsley Latisha Other [employer] Other 01-07-2023 10:00-0400 Diastolic blood pressure 73 mm[Hg] Kingsley Latisha Other [employer] Other 01-07-2023 10:00-0400 Respiratory rate 16 /min Kingsley Latisha Other [employer] Other 01-07-2023 10:00-0400 SaO2% (BldA) [Mass fraction] 98 % Kingsley Latisha Other [employer] Other 01-07-2023 10:00-0400 Systolic blood pressure 108 mm[Hg] Kingsley Latisha Other [employer] Other 12-31-2022 09:30-0400 Body height 170.18 cm Harley Ball Other [employer] Other 12-31-2022 09:30-0400 Body mass index (BMI) [Ratio] 27.03 kg/m2 Harley Ball Other [employer] Other 12-31-2022 09:30-0400 Body weight 78.29 kg Harley Ball Other [employer] Other 12-31-2022 09:30-0400 Diastolic blood pressure 69 mm[Hg] Harley Ball Other [employer] Other 12-31-2022 09:30-0400 Respiratory rate 16 /min Harley Ball Other [employer] Other 12-31-2022 09:30-0400 Systolic blood pressure 102 mm[Hg] Harley Ball Other [employer] Other 08-31-2022 08:45-0400 Body height 170.18 cm Harley Ball Other [employer] Other 08-31-2022 08:45-0400 Body mass index (BMI) [Ratio] 26.72 kg/m2 Harley Ball Other [employer] Other 08-31-2022 08:45-0400 Body weight 77.38 kg Harley Ball Other [employer] Other 08-31-2022 08:45-0400 Diastolic blood pressure 69 mm[Hg] Harley Ball Other [employer] Other 08-31-2022 08:45-0400 Respiratory rate 12 /min Harley Ball Other [employer] Other 08-31-2022 08:45-0400 Systolic blood pressure 102 mm[Hg] Harley Ball Other [employer] Other 07-02-2022 10:40-0400 Body height 170.18 cm Kingsley Latisha Other [employer] Other 07-02-2022 10:40-0400 Body mass index (BMI) [Ratio] 27.69 kg/m2 Kingsley Latisha Other [employer] Other 07-02-2022 10:40-0400 Body temperature 96.4 [degF] Kingsley Latisha Other [employer] Other 07-02-2022 10:40-0400 Body weight 80.2 kg Kingsley Latisha Other [employer] Other 07-02-2022 10:40-0400 Diastolic blood pressure 71 mm[Hg] Kingsley Latisha Other [employer] Other 07-02-2022 10:40-0400 Respiratory rate 16 /min Kingsley Latisha Other [employer] Other 07-02-2022 10:40-0400 SaO2% (BldA) [Mass fraction] 97 % Kingsley Latisha Other [employer] Other 07-02-2022 10:40-0400 Systolic blood pressure 115 mm[Hg] Kingsley Latisha Other [employer] Other 06-28-2022 09:30-0400 Body height 170.18 cm Harley Ball Other [employer] Other 06-28-2022 09:30-0400 Body mass index (BMI) [Ratio] 27.16 kg/m2 Harley Ball Other [employer] Other 06-28-2022 09:30-0400 Body weight 78.65 kg Harley Ball Other [employer] Other 06-28-2022 09:30-0400 Diastolic blood pressure 66 mm[Hg] Harley Ball Other [employer] Other 06-28-2022 09:30-0400 Respiratory rate 12 /min Harley Ball Other [employer] Other 06-28-2022 09:30-0400 Systolic blood pressure 115 mm[Hg] Harley Ball Other [employer] Other 06-26-2022 08:45-0400 Body height 170.18 cm Tondra Mapus Other [employer] Other 06-26-2022 08:45-0400 Body mass index (BMI) [Ratio] 27.75 kg/m2 Tondra Mapus Other [employer] Other 06-26-2022 08:45-0400 Body weight 80.38 kg Tondra Mapus Other [employer] Other 06-26-2022 08:45-0400 Diastolic blood pressure 61 mm[Hg] Tondra Mapus Other [employer] Other 06-26-2022 08:45-0400 Respiratory rate 16 /min Tondra Mapus Other [employer] Other 06-26-2022 08:45-0400 SaO2% (BldA) [Mass fraction] 96 % Tondra Mapus Other [employer] Other 06-26-2022 08:45-0400 Systolic blood pressure 105 mm[Hg] Tondra Mapus Other [employer] Other 03-20-2022 09:15-0500 Body height 170.18 cm Tondra Mapus Other [employer] Other 03-20-2022 09:15-0500 Body mass index (BMI) [Ratio] 26.15 kg/m2 Tondra Mapus Other [employer] Other 03-20-2022 09:15-0500 Body weight 75.75 kg Tona Desireeus Other [employer] Other 03-20-2022 09:15-0500 Diastolic blood pressure 57 mm[Hg] Tondra Mapus Other [employer] Other 03-20-2022 09:15-0500 Respiratory rate 16 /min Tondra Mapus Other [employer] Other 03-20-2022 09:15-0500 SaO2% (BldA) [Mass fraction] 98 % Tondra Mapus Other [employer] Other 03-20-2022 09:15-0500 Systolic blood pressure 117 mm[Hg] Tondra Mapus Other [employer] Other 01-17-2022 11:45-0400 Body height 170.18 cm DO Harley Ball Work Phone: [facility] 01-17-2022 11:22-0400 Diastolic blood pressure 68 mm[Hg] DO Harley Ball Work Phone: [facility] 01-17-2022 11:22-0400 Heart rate 60 /min DO Harley Ball Work Phone: [facility] 01-17-2022 11:22-0400 Systolic blood pressure 118 mm[Hg] DO Harley Ball Work Phone: [facility] 01-17-2022 11:05-0400 Body temperature 97.4 [degF] DO Harley Ball Work Phone: [facility] 01-17-2022 11:05-0400 Respiratory rate 18 /min DO Harley Ball Work Phone: [facility] 01-17-2022 11:05-0400 SaO2% (BldA) [Mass fraction] 95 % DO Harley Ball Work Phone: [facility] 01-17-2022 06:58-0400 Body weight 77.9 kg DO Harley Ball Work Phone: [facility] 01-15-2022 15:23-0400 Inhaled oxygen flow rate 2 L/min DO Harley Ball Work Phone: [facility] 12-18-2021 09:45-0400 Body height 170.18 cm Tondra Mapus Other [employer] Other 12-18-2021 09:45-0400 Body mass index (BMI) [Ratio] 27.25 kg/m2 Tondra Mapus Other [employer] Other 12-18-2021 09:45-0400 Body weight 78.93 kg Tondra Mapus Other [employer] Other 12-18-2021 09:45-0400 Diastolic blood pressure 65 mm[Hg] Tondra Mapus Other [employer] Other 12-18-2021 09:45-0400 Respiratory rate 16 /min Tondra Mapus Other [employer] Other 12-18-2021 09:45-0400 SaO2% (BldA) [Mass fraction] 97 % Tondra Mapus Other [employer] Other 12-18-2021 09:45-0400 Systolic blood pressure 133 mm[Hg] Tondra Mapus Other [employer] Other 09-29-2021 13:13-0400 Blood Pressure Location Gagan DAVID [facility] [place] 09-29-2021 13:13-0400 Diastolic blood pressure 74 mm[Hg] Gagan NILL [facility] [place] 09-29-2021 13:13-0400 Heart rate 60 /min Gagan NILL [facility] [place] 09-29-2021 13:13-0400 Respiratory rate 16 /min Gagan NILL [facility] [place] 09-29-2021 13:13-0400 Systolic blood pressure 138 mm[Hg] Gagan NILL [facility] [place] 07-17-2021 09:45-0400 Body height 170.18 cm Tondra Mapus Other [employer] Other 07-17-2021 09:45-0400 Body mass index (BMI) [Ratio] 30.69 kg/m2 Tondra Mapus Other [employer] Other 07-17-2021 09:45-0400 Body weight 88.91 kg Tondra Mapus Other [employer] Other 07-17-2021 09:45-0400 Diastolic blood pressure 73 mm[Hg] Tondra Mapus Other [employer] Other 07-17-2021 09:45-0400 Respiratory rate 16 /min Tondra Mapus Other [employer] Other 07-17-2021 09:45-0400 SaO2% (BldA) [Mass fraction] 97 % Tondra Mapus Other [employer] Other 07-17-2021 09:45-0400 Systolic blood pressure 163 mm[Hg] Tondra Mapus Other [employer] Other 06-06-2021 10:20-0500 Body height 170.18 cm Kingsley Latisha Other [employer] Other 06-06-2021 10:20-0500 Body mass index (BMI) [Ratio] 30.29 kg/m2 Kingsley Latisha Other [employer] Other 06-06-2021 10:20-0500 Body temperature 96.1 [degF] Kingsley Latisha Other [employer] Other 06-06-2021 10:20-0500 Body weight 87.73 kg Kingsley Latisha Other [employer] Other 06-06-2021 10:20-0500 Diastolic blood pressure 70 mm[Hg] Kingsley Latisha Other [employer] Other 06-06-2021 10:20-0500 Respiratory rate 18 /min Kingsley Latisha Other [employer] Other 06-06-2021 10:20-0500 SaO2% (BldA) [Mass fraction] 97 % Kingsley Latisha Other [employer] Other 06-06-2021 10:20-0500 Systolic blood pressure 160 mm[Hg] Kingsley Latisha Other [employer] Other 04-10-2021 09:15-0500 Body height 170.18 cm Tondra Mapus Other [employer] Other 04-10-2021 09:15-0500 Body mass index (BMI) [Ratio] 30.99 kg/m2 Tondra Mapus Other [employer] Other 04-10-2021 09:15-0500 Body weight 89.77 kg Tondra Mapus Other [employer] Other 04-10-2021 09:15-0500 Diastolic blood pressure 64 mm[Hg] Tondra Mapus Other [employer] Other 04-10-2021 09:15-0500 Respiratory rate 18 /min Tondra Mapus Other [employer] Other 04-10-2021 09:15-0500 SaO2% (BldA) [Mass fraction] 98 % Tondra Mapus Other [employer] Other 04-10-2021 09:15-0500 Systolic blood pressure 136 mm[Hg] Tondra Mapus Other [employer] Other 02-14-2021 10:00-0500 Body height 170.18 cm Kingsley Latisha Other [employer] Other 02-14-2021 10:00-0500 Body mass index (BMI) [Ratio] 30.98 kg/m2 Kingsley Latisha Other [employer] Other 02-14-2021 10:00-0500 Body temperature 96 [degF] Kingsley Latisha Other [employer] Other 02-14-2021 10:00-0500 Body weight 89.72 kg Kingsley Latisha Other [employer] Other 02-14-2021 10:00-0500 Diastolic blood pressure 60 mm[Hg] Kingsley Latisha Other [employer] Other 02-14-2021 10:00-0500 Respiratory rate 16 /min Kingsley Latisha Other [employer] Other 02-14-2021 10:00-0500 SaO2% (BldA) [Mass fraction] 97 % Kingsley Latisha Other [employer] Other 02-14-2021 10:00-0500 Systolic blood pressure 130 mm[Hg] Kingsley Latisha Other [employer] Other 01-03-2021 10:15-0400 Body height 170.18 cm Tondra Mapus Other [employer] Other 01-03-2021 10:15-0400 Body mass index (BMI) [Ratio] 31.01 kg/m2 Tondra Mapus Other [employer] Other 01-03-2021 10:15-0400 Body weight 89.81 kg Tondra Mapus Other [employer] Other 01-03-2021 10:15-0400 Diastolic blood pressure 67 mm[Hg] Tondra Mapus Other [employer] Other 01-03-2021 10:15-0400 Respiratory rate 16 /min Tondra Mapus Other [employer] Other 01-03-2021 10:15-0400 SaO2% (BldA) [Mass fraction] 99 % Tondra Mapus Other [employer] Other 01-03-2021 10:15-0400 Systolic blood pressure 151 mm[Hg] Tondra Mapus Other [employer] Other Encounters Encounter Date Encounter Type Care Provider Facility Start: 04-30-2024 End: 04-30-2024 ambulatory [facility] Work Phone: Start: 04-30-2024 End: 04-30-2024 Patient encounter procedure [facility] Work Phone: Start: 04-21-2024 ambulatory [facility] Start: 04-21-2024 Encounter for preprocedural cardiovascular examination [facility] Start: 04-16-2024 End: 04-16-2024 Patient encounter procedure [facility] Work Phone: Start: 04-02-2024 End: 04-02-2024 Bamjeet flowslynn Tavera DPM Work Phone: [facility] Start: 04-02-2024 End: 04-02-2024 Bamboo flowsheet Kenneth Tavera DPM Work Phone: [facility] Start: 04-02-2024 End: 04-02-2024 Patient encounter procedure Kenneth Tavera DPM Work Phone: [facility] Comment on above: 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, without long-term current use of insulin ([facility]) (Primary Dx); Pain due to onychomycosis of toenails of both feet Start: 04-02-2024 End: 04-02-2024 ambulatory KENNETH TAVERA Not Available Start: 03-26-2024 ambulatory [facility] Start: 03-10-2024 End: 03-10-2024 ambulatory KEVIN [facility] Start: 03-06-2024 ambulatory KEVIN [facility] Start: 02-24-2024 End: 02-24-2024 Patient encounter procedure [facility] Work Phone: Start: 02-20-2024 ambulatory KEVIN [facility] Start: 02-18-2024 Non-patient / Non-visit [facility] Work Phone: Start: 02-18-2024 Non-patient / Non-visit [facility] Work Phone: Start: 02-13-2024 [facility] Start: 02-13-2024 Evaluation and management of inpatient BONAV[facility] Start: 02-13-2024 Evaluation and management of inpatient [facility]ONAV[facility]URE [facility] Start: 02-13-2024 End: 02-14-2024 Evaluation and management of inpatient HEMALATHA KATJACKIE [facility] Start: 02-12-2024 Non-patient / Non-visit [facility] Work Phone: Start: 02-12-2024 Non-patient / Non-visit [facility] Work Phone: Start: 01-23-2024 End: 01-23-2024 Bamboo flowslynn Tavera DPM Work Phone: [facility] Start: 01-23-2024 End: 01-23-2024 Bamboo flowslynn Tavera DPM Work Phone: [facility] Start: 01-23-2024 End: 01-23-2024 Office outpatient visit 10 minutes Kenneth Tavera DPM Work Phone: [facility] Comment on above: Xerosis cutis (Prima 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); Diabetes 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, without long-term current use of insulin ([facility]); Pain due to onychomycosis of toenails of both feet Start: 01-23-2024 End: 01-23-2024 ambulatory KENNETH TAVERA Not Available Start: 01-23-2024 End: 01-23-2024 ambulatory [facility] Work Phone: Start: 01-23-2024 End: 01-23-2024 Patient encounter procedure [facility] Work Phone: Start: 01-21-2024 ambulatory [facility] Start: 01-16-2024 ambulatory [facility] Start: 01-10-2024 ambulatory [facility] Start: 01-09-2024 ambulatory [facility] Start: 01-07-2024 End: 01-07-2024 ambulatory [facility] Work Phone: Start: 01-07-2024 End: 01-07-2024 Patient encounter procedure [facility] Work Phone: Start: 12-30-2023 Non-patient / Non-visit [facility] Work Phone: Start: 12-12-2023 End: 12-12-2023 ambulatory [facility] Work Phone: Start: 12-12-2023 End: 12-12-2023 Patient encounter procedure [facility] Work Phone: Start: 11-28-2023 ambulatory [facility] Start: 11-12-2023 End: 11-12-2023 ambulatory [facility] Start: 11-07-2023 End: 11-07-2023 ambulatory KENNETH TAVERA Not Available Start: 10-17-2023 End: 10-17-2023 ambulatory [facility] Work Phone: Start: 10-17-2023 End: 10-17-2023 Patient encounter procedure [facility] Work Phone: Start: 10-07-2023 End: 10-07-2023 ambulatory [facility] Start: 10-02-2023 ambulatory [facility] Start: 09-27-2023 Evaluation and management of inpatient [facility] Start: 09-27-2023 Evaluation and management of inpatient [facility] Start: 09-26-2023 Non-patient / Non-visit [facility] Work Phone: Start: 09-26-2023 Evaluation and management of inpatient [facility] Start: 09-26-2023 End: 09-28-2023 Evaluation and management of inpatient [facility] Start: 09-26-2023 Non-patient / Non-visit [facility] Work Phone: Start: 09-25-2023 ambulatory [facility] Start: 09-24-2023 ambulatory [facility] Start: 09-19-2023 ambulatory [facility] Start: 09-09-2023 End: 09-09-2023 ambulatory [facility] Start: 08-27-2023 Non-patient / Non-visit [facility] Work Phone: Start: 08-12-2023 End: 08-12-2023 ambulatory [facility] Work Phone: Start: 08-12-2023 End: 08-12-2023 Patient encounter procedure [facility] Work Phone: Start: 07-02-2023 End: 07-02-2023 ambulatory [facility] Work Phone: Start: 07-02-2023 End: 07-02-2023 Patient encounter procedure [facility] Work Phone: Start: 06-24-2023 Non-patient / Non-visit [facility] Work Phone: Start: 06-18-2023 End: 06-18-2023 ambulatory [facility] Work Phone: Start: 06-18-2023 End: 06-18-2023 Patient encounter procedure [facility] Work Phone: Start: 06-13-2023 Non-patient / Non-visit [facility] Work Phone: Start: 05-07-2023 End: 05-07-2023 ambulatory [facility] Start: 05-03-2023 End: 05-03-2023 Patient encounter procedure DO Harley Cherie Work Phone: [facility]- Start: 04-30-2023 Telephone encounter Kingsley Good [facility] Start: 04-30-2023 End: 04-30-2023 ambulatory LAILA GREEN [facility] [employer] Other Start: 04-23-2023 End: 04-23-2023 ambulatory Tondra Mapus Other [employer] Other Start: 04-23-2023 Telephone encounter Tondra Desireeus [facility] Start: 03-12-2023 (DM) Diabetes Tondra Desireeus [facility] Start: 03-12-2023 End: 03-13-2023 ambulatory DO Harley Crespo Work Phone: [employer] Other Start: 03-12-2023 End: 03-12-2023 Discharged Recurring DO Harley Cherie Work Phone: [facility] Work Phone: Start: 03-12-2023 End: 03-12-2023 Patient encounter procedure DO Harley Crespo Work Phone: [facility] Work Phone: Start: 02-12-2023 End: 02-12-2023 ambulatory Harley Crespo Other [employer] Other Start: 02-12-2023 Telephone encounter Harley Garcia [facility] Start: 02-07-2023 End: 02-07-2023 ambulatory Harley Crespo Other [employer] Other Start: 02-07-2023 Telephone encounter Harley HERRMANN [facility] Start: 02-06-2023 End: 02-06-2023 ambulatory Tondra Mapus Other [employer] Other Start: 02-06-2023 Telephone encounter Tondra Mapus [facility] Start: 01-29-2023 End: 01-29-2023 ambulatory Harley Crespo Other [employer] Other Start: 01-29-2023 Telephone encounter Harley HERRMANN [facility] Start: 01-17-2023 End: 01-17-2023 ambulatory Tondra Mapus Other [employer] Other Start: 01-17-2023 Telephone encounter Tondra Mapus [facility] Start: 01-07-2023 End: 01-07-2023 ambulatory Harley Crespo Other [employer] Other Start: 01-07-2023 Office outpatient vi sit 25 minutes Kingsley Latisha [facility] Start: 01-07-2023 Telephone encounter Harley HERRMANN [facility] Start: 01-04-2023 End: 01-04-2023 ambulatory Kingsley Latisha Other [employer] Other Start: 01-04-2023 Telephone encounter Kingsley Latisha [facility] Start: 01-01-2023 End: 01-01-2023 ambulatory Kingsley Latisha Other [employer] Other Start: 01-01-2023 Telephone encounter Kingsley Latisha [facility] Start: 12-31-2022 End: 12-31-2022 ambulatory Harley Crespo Other [employer] Other Start: 12-31-2022 Office outpatient vi sit 25 minutes Harley Crespo [facility] Start: 12-31-2022 Telephone encounter Harley Crespo [facility] Start: 12-13-2022 End: 12-13-2022 ambulatory Denita Chairez Other [employer] Other Start: 12-13-2022 Nursing evaluation o f patient and report Denita Mihaela [facility] Start: 11-23-2022 End: 11-23-2022 ambulatory Tondra Mapus Other [employer] Other Start: 11-23-2022 Telephone encounter Tondra Mapus [facility] Start: 10-12-2022 End: 10-12-2022 ambulatory Tondra Mapus Other [employer] Other Start: 10-12-2022 Telephone encounter Tondra Mapus [facility] Start: 10-09-2022 End: 10-09-2022 ambulatory Harley Crespo Other [employer] Other Start: 10-09-2022 Telephone encounter Harley Crespo [facility] Start: 10-01-2022 End: 10-01-2022 ambulatory Harley Crespo Other [employer] Other Start: 10-01-2022 Telephone encounter Harley Crespo FP [facility] Start: 09-27-2022 End: 09-27-2022 ambulatory Kingsley Latisha Other [employer] Other Start: 09-27-2022 Telephone encounter Kingsley Latisha [facility] Start: 09-26-2022 End: 09-26-2022 ambulatory Harley Crespo Other [employer] Other Start: 09-26-2022 Telephone encounter Harley Crespo FP [facility] Start: 09-19-2022 End: 09-19-2022 ambulatory Kingsley Latisha Other [employer] Other Start: 09-19-2022 Telephone encounter Kingsley Latisha [facility] Start: 09-12-2022 End: 09-12-2022 ambulatory Harley Crespo Other [employer] Other Start: 09-12-2022 Telephone encounter Harley Crespo FP [facility] Start: 09-03-2022 End: 09-03-2022 ambulatory Harley Crespo Other [employer] Other Start: 09-03-2022 Telephone encounter Harley Crespo FP [facility] Start: 08-31-2022 End: 08-31-2022 ambulatory Harley Crespo Other [employer] Other Start: 08-31-2022 Office outpatient vi sit 25 minutes Harley Crespo [facility] Start: 08-10-2022 End: 08-10-2022 ambulatory Harley Crespo Other [employer] Other Start: 08-10-2022 Telephone encounter Harley Crespo FP [facility] Start: 08-09-2022 End: 08-10-[address] HARLEY CRESPO [facility] [employer] Other Start: 08-09-2022 Telephone encounter Kingsley Latisha [facility] Start: 07-02-2022 End: 07-02-2022 ambulatory Kingsley Latisha Other [employer] Other Start: 07-02-2022 Office outpatient vi sit 25 minutes Kingsley Latisha [facility] Start: 06-28-2022 End: 06-28-2022 ambulatory Harley Crespo Other [employer] Other Start: 06-28-2022 Patient encounter procedure Harley Crespo [facility] Start: 06-26-2022 (DM) Diabetes Tondra Mapus [facility] Start: 06-26-2022 End: 06-26-2022 ambulatory Tondra Mapus Other [employer] Other Start: 06-25-2022 End: 06-26-2022 ambulatory KINGSLEY LATISHA Facility:[facility] Start: 06-18-2022 End: 06-19-2022 ambulatory TONDRA MAPUS Facility:[facility] Start: 06-05-2022 End: 06-06-[address] HARLEY CRESPO Facility:[facility] Start: 05-26-2022 End: 05-26-2022 ambulatory Harley Crespo Other [employer] Other Start: 05-26-2022 Telephone encounter Harley Crespo [facility] Start: 05-25-2022 End: 05-25-2022 ambulatory Tondra Mapus Other [employer] Other Start: 05-25-2022 Telephone encounter Tondra Mapus [facility] Start: 05-03-2022 End: 05-04-[address] PINKY BISHOP Facility:[facility] Start: 04-18-2022 End: 04-19-[address] PINKY BISHOP Facility:[facility] Start: 03-22-2022 End: 03-23-[address] HIGINIO FLANAGAN Facility:[facility] Start: 03-20-2022 (DM) Diabetes Tondra Mapus [facility] Start: 03-20-2022 End: 03-20-2022 ambulatory Tondra Mapus Other [employer] Other Start: 03-12-2022 End: 03-13-2022 Evaluation and management of inpatient DR PARUL CHU Facility:[facility] Start: 03-09-2022 End: 03-10-[address] SHANNON LANDIS Facility:[facility] Start: 03-02-2022 End: 03-03-[address] HARLEY CRESPO Facility:[facility] Start: 02-19-2022 End: 02-19-2022 ambulatory Tondra Mapus Other [employer] Other Start: 02-19-2022 Telephone encounter Tondra Mapus [facility] Start: 02-08-2022 End: 02-08-2022 ambulatory Tondra Mapus Other [employer] Other Start: 02-08-2022 Telephone encounter Tondra Mapus [facility] Start: 01-15-2022 End: 01-17-2022 Evaluation and management of inpatient DO Harley Crespo Work Phone: [facility] Start: 01-15-2022 End: 01-15-[address] HARLEY CRESPO Facility:[facility] Start: 12-18-2021 Registered Recurring DO Zamudio in [place] Work Phone: [facility] Start: 12-18-2021 (DM) Diabetes Tondra Mapus [facility] Start: 12-18-2021 End: 12-18-2021 ambulatory Tondra Mapus Other [employer] Other Start: 12-08-2021 End: 12-09-[address] HARLEY CRESPO Facility:[facility] Start: 11-30-2021 End: 12-01-2021 ambulatory KINGSLEY GOOD Facility:[facility] Start: 11-24-2021 End: 11-25-[address] HARLEY CRESPO Facility:[facility] Start: 11-16-2021 End: 11-16-2021 ambulatory Tondra Mapus Other [employer] Other Start: 11-16-2021 Telephone encounter Tondra Mapus [facility] Start: 2021 End: 2021 ambulatory Tondra Mapus Other [employer] Other Start: 2021 Telephone encounter Tondra Mapus [facility] Start: 10-31-2021 End: 10-31-2021 ambulatory Tondra Mapus Other [employer] Other Start: 10-31-2021 Telephone encounter Tondra Mapus [facility] Start: 10-27-2021 End: 10-27-2021 [...] 07-24-2021 End: 07-24-2021 ambulatory Tondra Mapus Other [employer] Other Start: 07-24-2021 Telephone encounter Tondra Mapus [facility] Start: 07-17-2021 (DM) Diabetes Tondra Mapus [facility] Start: 07-17-2021 End: 07-17-2021 ambulatory Tondra Mapus Other [employer] Other Start: 06-19-2021 End: 06-19-2021 ambulatory Shannon Escobar Other [employer] Other Start: 06-19-2021 Telephone encounter Shannon Escobar [facility] Start: 06-06-2021 End: 06-06-2021 ambulatory Kingsley Latisha Other [employer] Other Start: 06-06-2021 Office outpatient vi sit 25 minutes Kingsley Latisha [facility] Start: 05-22-2021 End: 05-22-2021 ambulatory Tondra Mapus Other [employer] Other Start: 05-22-2021 Telephone encounter Tondra Mapus [facility] Start: 05-16-2021 End: 05-16-2021 ambulatory Tondra Mapus Other [employer] Other Start: 05-16-2021 Telephone encounter Tondra Mapus [facility] Start: 04-10-2021 (DM) Diabetes Tondra Mapus [facility] Start: 04-10-2021 End: 04-10-2021 ambulatory Tondra Mapus Other [employer] Other Start: 04-10-2021 Telephone encounter Tondra Mapus [facility] Start: 02-14-2021 End: 02-14-2021 ambulatory Kingsley Latisha Other [employer] Other Start: 02-14-2021 Patient encounter procedure Kingsley Latisha [facility] Start: 02-14-2021 Telephone encounter Tondra Mapus [facility] Start: 01-03-2021 (DM) Diabetes Tondra Mapus [facility] Start: 10-14-2018 End: 10-15-2018 Patient encounter procedure PINKY BISHOP Facility:[facility] Start: 02-24-2018 End: 02-25-2018 Evaluation and management of inpatient PINKY BISHOP Facility:[facility] Procedures Date Procedure Procedure Detail Performing Clinician Start: 03-11-2022 Assistance with Respiratory Ventilation, Less than 24 Consecutive Hours, Continuous Positive Airway Pressure DR PINKY BISHOP Start: 01-16-2022 [facility] Angio w/grafts DO Harley Crespo Work Phone: Start: 01-16-2022 DO Harley Crespo Work Phone: Start: 07-10-2021 Colonoscopy Kenneth Tavera DPM Work Phone: Start: 07-10-2021 Colonoscopy Gagan DAVID [...] Treatment Date Care Activity Detail Author Start: 07-11-2031 Screening for malign ant neoplasm of colon [facility] Start: 06-11-2024 End: 06-11-2024 Patient encounter procedure 06/11/2024 11:50 AM EDT Office Visit [facility] [address] [facility] [address] [place] [address] Kenneth Tavera DPM [address] [address] [facility] Start: 04-02-2024 End: 04-02-2024 Patient encounter procedure [facility] Comment on above: 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, without long-term current use of insulin ([facility]) (Primary Dx); Pain due to onychomycosis of toenails of both feet Start: 01-23-2024 End: 01-23-2024 Patient encounter procedure 01/23/2024 11:30 AM EDT Office Visit [facility] [address] [place] [address] [place] [address] Kenneth Tavera DPM [address] [address] Diabetes 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, without long-term current use of insulin (CMS/HCC) (Primary Dx); Pain due to onychomycosis of toenails of both feet [facility] Comment on above: 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, without long-term current use of insulin (CMS/HCC) (Primary Dx); Pain due to onychomycosis of toenails of both feet Start: 10-26-2023 DIABETES SCREEN DIABETES SCREEN [facility] Start: 10-17-2023 Patient referral [facility] Work Phone: Start: 08-16-2023 Screening for malign ant neoplasm of colon FIT-DNA [facility] Start: 01-17-2022 [facility] Start: 01-17-2022 Radionuclide myocard ial perfusion stress study NM rachel perf SPECT rest & str [facility] Start: 01-17-2022 Referral to cardiac rehabilitation program [facility] Start: 01-16-2022 Hospital admission [facility] Start: 01-15-2022 Hospital admission [facility] Start: 11-30-2021 Influenza vaccination INFLUENZA (#1) [facility] Start: 10-24-2021 End: 12-24-2021 CBC W Auto Differential panel - Blood CBC + DIFF Lab Routine Monoclonal gammopathy Expected: 10/24/2021, Expires: 12/24/2021 [facility] Work Phone: Comment on above: Expected: 10/24/2021 , Expires: 12/24/2021 Start: 04-25-2021 Adult depression screening assessment DEPRESSION SCREENING [facility] Start: 04-01-2021 ADVANCE DIRECTIVE DISCUSSION ADVANCE DIRECTIVE DISCUSSION [facility] Start: 11-21-2020 COVID-19 VACCINE (3 - Booster for Pfizer series) COVID-19 VACCINE (3 - Booster for Pfizer series) [facility] Start: 11-07-2001 SHINGRIX VACCINE (1 of 2) SHINGRIX VACCINE (1 of 2) [facility] Start: 11-07-1996 COLOGUARD (FIT-DNA) COLOGUARD (FIT-D NA) [facility] Start: 11-07-1996 Colonoscopy COLONOSCOPY [facility] Start: 11-07-1996 COLORECTAL CANCER SCREENING COLORECTAL CANCER SCREENING [facility] Start: 11-07-[address] COLONOGRAPHY [facility] Start: 11-07-1996 FECAL OCCULT BLOOD FECAL OCCULT BLOO D [facility] Start: 11-07-1996 SIGMOIDOSCOPY SIGMOIDOSCOPY Maddy kearns [facility] Start: 11-07-1986 LIPID SCREEN LIPID SCREEN [facility] Start: 11-07-1970 Urine microalbumin profile DTAP,TDAP,TD (1 - Tdap) [facility] Start: 11-07-1969 HEPATITIS C SCREENING HEPATITIS C SC REENING [facility] Start: 1950 ABDOMINAL AORTIC ANEURYSM SCREENING ABDOMINAL AORTIC ANEURYSM SCREENING [facility] Start: 1950 Screening for malign ant neoplasm of colon [facility] Comprehensive metabo lic 1999 panel - Serum or Plasma [facility] Comprehensive metabo lic 1999 panel - Serum or Plasma [facility] Patient Education [facility] Work Phone: Patient referral [facility] Work Phone: Renal function 1999 panel - Serum or Plasma [facility] Renal function 1999 panel - Serum or Plasma [facility] Immunizations Immunization Date Immunization Notes Care Provider Poli patel 12-12-2023 influenza, high dose seasonal, preservative-free [facility] 12-13-2022 influenza, high dose seasonal, preservative-free Denita Chairez Other [employer] [facility] [employer] Other 12-13-2022 influenza virus vaccine, unspecified formulation DO Harley Ball Work Phone: [facility] 12-15-2021 influenza virus vaccine, unspecified formulation DO Harley Ball Work Phone: [facility] 12-15-2021 influenza, high dose seasonal, preservative-free Harley Ball Other [employer] [facility] [employer] Other 02-21-2021 COVID-19 mRNA, Comirnaty (Pfizer) DO Harley Crespo Work Phone: [facility] 06-21-2020 COVID-19 Vaccine Pfi zer - Documentation Purposes Only Arlen Kwong Other [facility] 05-30-2020 COVID-19 Vaccine Pfi zer - Documentation Purposes Only Arlen Ramírezus Other [facility] 01-17-2018 pneumococcal polysaccharide vaccine, 23 valent Abdon Walker MD Work Phone: [facility] 01-17-2018 Seasonal trivalent influenza vaccine, adjuvanted, preservative free Abdon Walker MD Work Phone: [facility] 01-16-2017 influenza, high dose seasonal, preservative-free Abdon Walker MD Work Phone: [facility] 11-30-2016 influenza, injectabl e, quadrivalent, preservative free Abdon Walker MD Work Phone: [facility] 11-14-2016 pneumococcal conjuga te vaccine, 13 valent Abdon Walker MD Work Phone: [facility] 04-02-2016 pneumococcal polysaccharide vaccine, 23 valent Tona Mapus Other [facility] 01-23-2012 influenza, seasonal, injectable Abdon Walker MD Work Phone: [facility] 12-13-2010 influenza, seasonal, injectable Abdon Walker MD Work Phone: [facility] 01-27-2009 novel [id number], preservative-free, injectable Abdon Walker MD Work Phone: [facility] 01-19-2008 influenza virus vaccine, whole virus Abdon Walker MD Work Phone: [facility] Payers Date Payer Category Payer Private Health Insurance [employer] [id number] 2019 Unknown MMO MMO MEDICARE SUPPLEMENT [id number] 2019- [phone] [address] [place] [address] Indemnity [id number] 2017 Self-pay [id number] 2017 Unknown [id number] 2017 Unknown [id number] 2016 Medicare MEDICARE MEDICAR E A AND B [id number] 2016-Present [phone] [place] [address] Medicare [id number] 2016 Medicare MEDICARE [id number] 1959 Medicare [id number] 1959 Unknown [id number] [id number] 1951 Unknown [id number] 2.16.840.1.789997.3.579.2. 647 1951 Unknown [id number] 2.16.840.1.443672.3.579.2. 647 1951 Unknown [id number] 2.16.840.1.010753.3.579.2. 593 1950 Unknown [id number] 2.16.840.1.601319.3.579.2. 593 1951 Unknown [id number] 2.16.840.1.695294.3.579.2. 593 1951 Unknown [id number] 2.16.840.1.014129.3.579.2. 593 1951 Unknown [id number] 2.16.840.1.830848.3.579.2. 593 1951 Unknown [id number] 2.16.840.1.382520.3.579.2. 593 1951 Unknown [id number] 2.16.840.1.580416.3.579.2. 593 1951 Unknown [id number] 2.16.840.1.441688.3.579.2. 593 1951 Unknown [id number] 2.16.840.1.970585.3.579.2. 593 1951 Unknown [id number] 2.16.840.1.033922.3.579.2. 593 1951 Unknown [id number] 2.16.840.1.854697.3.579.2. 593 1951 Unknown [id number] 2.16.840.1.434767.3.579.2. 593 1951 Unknown [id number] 2.16.840.1.340766.3.579.2. 593 1951 Unknown [id number] 2.16.840.1.659093.3.579.2. 593 1951 Unknown [id number] 2.16.840.1.715011.3.579.2. 593 1951 Unknown [id number] 2.16.840.1.896256.3.579.2. 593 1951 Unknown [id number] 2.16.840.1.738700.3.579.2. 593 1951 Unknown [id number] 2.16.840.1.106778.3.579.2. 593 1951 Unknown [id number] 2.16.840.1.729083.3.579.2. 1259 1951 Unknown [id number] 2.16.840.1.310262.3.579.2. 1259 1951 Unknown [id number] 2.16.840.1.926328.3.579.2. 1259 Unknown [id number] Unknown [id number] 2.16.840.1.255622.3.579.2. 531 Unknown HCAP/HFA/FAP Active [id number] Social History Date Type Detail Facility Unknown if ever smoked [employer] Other Start: 11-07-2023 End: 01-23-2024 Sex Assigned At [facility] [employer] Other Start: 09-29-2021 End: 01-07-2024 Tobacco smoking status Ex-smoker (finding) [facility] [place] Tobacco smoking status Never [facility] [place] Start: 07-23-2018 End: 10-12-2022 Tobacco use and exposure Smokeless tobacco non-user [facility] Start: 10-25-2020 Alcohol intake Ex-drinker (finding) [facility] Start: 1950 Sex Assigned At Not on file [facility] Start: 1950 Sex Assigned At Male F [facility] Start: 10-12-2022 Tobacco smoking stat NHIS Never smoked tobacco [facility] Start: 11-07-2023 End: 04-02-2024 Alcoholic beverage intake Defer [facility] Start: 11-07-2023 End: 01-23-2024 History of Social function [facility] Start: 04-30-2024 Sex Male (finding) [facility] Medical Equipment Procedure Code Equipment Code [...] 32 gauge x 5/32 needle Start: 11-21-2023 CL STENT DC 2. 0 X 15 FDA Start: 07-12-2020 Pen Needle, Diab etic (Bd Ultra-Fine Latoya Pen Needle) 32 gauge x 5/32 needle Start: 11-21-2023 CL STENT DC 2. 0 X 15 FDA Start: 07-12-2020 Pen Needle, Diab etic (Bd Ultra-Fine Latoya Pen Needle) 32 gauge x 5/32 needle Start: 11-21-2023 CL STENT DC 2. 0 X 15 FDA Start: 07-12-2020 Pen Needle, Diab etic (Bd Ultra-Fine Latoya Pen Needle) 32 gauge x 5/32 needle Start: 11-21-2023 Goals Date Patient Goal Desired Activity /State Functional Status Date Assessment Result Facility 01-17-2022 Functional status Patient at Baseline [facility] Work Phone: 09-29-2021 Functional Status N/A General Asha anastasiia [facility] Mental Status Date Assessment Result Facility 01-17-2022 Cognitive function Cognitive Sta tus Patient at Baseline [facility] Work Phone: Clinical Notes 01-03-2021 to 04-02-2024 Kenneth A Liang, DPM - 04/02/2024 11:50 AM EST Note Date & Type Note Facility 04-02-2024 History of Present illness Narrative Patient: Lani Lizama : 1950 PCP: Harley Crespo MD SUBJECTIVE This is a 73 y.o. male that presents today with a CC of elongated, thick nails. Pt states nails have been elongated and thick for many years and cause pain with ambulation in shoegear. Pt has tried previous treatment with minimal relief. Pt presents today for nail care and treatment. Patient is DM2 with peripheral neuropathy Pt has hx of xerosis to feet Patient also has longstanding history of multiple MIs and cardiac history Allergies: Allergies Allergen Reactions Other Other Reaction(s): Unknown Received name: Nkda Past Medical History: Past Medical History: Diagnosis Date Diabetic retinopathy (CMS/HCC) HTN (hypertension) (CMS/HCC) Hypercholesteremia (CMS/HCC) UT (myocardial infarction) (CMS/HCC) 2021 Two total: 02/20, 03/22 Type 1 diabetes mellitus (CMS/HCC) Medications: Current Outpatient Medications: ALPRAZolam (Xanax) 0.5 MG tablet, Take 1 tablet by mouth in the morning and 1 tablet at noon and 1 tablet in the evening., Disp: , Rfl: amLODIPine (Norvasc) 10 MG tablet, Take 10 mg by mouth in the morning. as directed., Disp: , Rfl: aspirin 81 MG chewable tablet, Chew 1 tablet every day by oral route., Disp: , Rfl: atorvastatin (Lipitor) 80 MG tablet, 1 (one) time each day at the same time., Disp: , Rfl: bumetanide (Bumex) 0.5 MG tablet, Take 0.5 mg by mouth in the morning., Disp: , Rfl: carvedilol (Coreg) 12.5 MG tablet, Take 12.5 mg by mouth in the morning and 12.5 mg in the evening. Take with meals., Disp: , Rfl: cholecalciferol (Vitamin D-3) 25 MCG (1000 UT) capsule, Take 1,000 Units by mouth in the morning., Disp: , Rfl: clopidogrel (Plavix) 75 MG tablet, Take 75 mg by mouth in the morning., Disp: , Rfl: famotidine (Pepcid) 40 MG tablet, Take 40 mg by mouth in the morning., Disp: , Rfl: HYDROcodone-acetaminophen (Wilson) 5-325 MG tablet, TAKE 1 TABLET BY MOUTH EVERY 4 TO 6 HOURS NEEDED FOR PAIN, Disp: , Rfl: Insulin Aspart 100 UNIT/ML solution, Inject under the skin., Disp: , Rfl: insulin detemir (Levemir) 100 UNIT/ML injection, Inject under the skin twice a day., Disp: , Rfl: insulin glargine (Lantus SoloStar) 100 UNIT/ML pen, Subcutaneous for 90, Disp: , Rfl: insulin lispro (HumaLOG) 100 UNIT/ML injection, Subcutaneous, Disp: , Rfl: insulin regular (HumuLIN R,NovoLIN R) 100 UNIT/ML injection, Inject 30 Units under the skin in the morning and 30 Units at noon and 30 Units in the evening. Inject with meals., Disp: , Rfl: isosorbide mononitrate ER (Imdur) 60 MG 24 hr tablet, Take 60 mg by mouth in the morning and 60 mg before bedtime., Disp: , Rfl: lisinopril 5 MG tablet, Take 5 mg by mouth in the morning., Disp: , Rfl: loratadine (Claritin) 10 MG tablet, 1 (one) time each day at the same time., Disp: , Rfl: lovastatin (Mevacor) 40 MG tablet, Take 40 mg by mouth in the evening., Disp: , Rfl: metoprolol succinate XL (Toprol-XL) 50 MG 24 hr tablet, 1 (one) time each day at the same time., Disp: , Rfl: nitroglycerin (Nitrostat) 0.4 MG SL tablet, PLACE 1 TABLET UNDER TONGUE EVERY 5 MINS, UP TO 3 DOSES NEEDED FOR CHEST PAIN, Disp: , Rfl: pantoprazole (ProtoNix) 40 MG EC tablet, TAKE 1 TABLET BY MOUTH DAILY ON AN EMPTY STOMACH FOLLOWED BY BREAKFAST 30 MINUTES AFTER, Disp: , Rfl: Social History: Social History Socioeconomic History Marital status: Unknown Spouse name: Not on file Number of children: Not on file Years of education: Not on file Highest education level: Not on file Occupational History Not on file Tobacco Use Smoking status: Never Smokeless tobacco: Never Substance and Sexual Activity Alcohol use: Defer Drug use: Defer Sexual activity: Not on file Other Topics Concern Not on file Social History Narrative Not on file Social Drivers of Health Financial Resource Strain: Low Risk (02/13/2024) Received from [facility] Overall Financial Resource Strain (CARDIA) Difficulty of Paying Living Expenses: Not very hard Food Insecurity: No Food Insecurity (02/13/2024) Received from [facility] Hunger Vital Sign Within the past 12 months, you worried that your food would run out before you got the money to buy more.: Never true Ran Out of Food in the Last Year: Not on file Transportation Needs: No Transportation Needs (02/13/2024) Received from [facility] Transportation In the past 12 months, has lack of transportation kept you from medical appointments or from getting medications?: No Lack of Transportation (Non-Medical): Not on file Physical Activity: Not on file Stress: Not on file Social Connections: Not on file Intimate Partner Violence: Unknown (02/13/2024) Received from [facility] Humiliation, Afraid, Rape, and Kick questionnaire Fear of Current or Ex-Partner: No Emotionally Abused: Not on file Physically Abused: Not on file Sexually Abused: Not on file Housing Stability: Low Risk (02/13/2024) Received from [facility] Housing Stability Vital Sign In the last 12 months, was there a time when you were not able to pay the mortgage or rent on time?: No Number of Times Moved in the Last Year: Not on file At any time in the past 12 months, were you homeless or living in a longterm (including now)?: No ROS: General: denies fever, chills, fatigue, malaise Gastrointestinal: denies abdominal pain, ulcers, or changes in appetite or bowel habits Musculoskeletal: Positive generalized history of arthritis, denies loss of strength, pain to hip, knees, back Cardiovascular: d positive history of pacemaker defibrillator with multiple MIs in the past and CABG procedure OBJECTIVE LE EXAM: DERM: Elongated thick yellow crumbly nails digits 1 through 10. Negative hair growth with thin shiny atrophic skin bilaterally. Diminished Dry scaly skin to bilateral heels VASC: Positive DP and negative PT pedal pulses NEURO: 5.07 [place] Chun monofilament test diminished to digits and forefoot bilaterally 125Hz tuning fork diminished to 1st MPJ bilaterally ORTHO: Positive pain on palpation to nails 1 through 10 ASSESSMENT 1. Diabetes 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, without long-term current use of insulin ([facility]) 2. Pain due to onychomycosis of toenails of both feet PLAN Discussed proper foot care with patient today. Debride nails in length and thickness digits 1 through 10 Patient educated today on proper diabetic foot care including monitoring feet daily for any signs of infection openings in the skin or irregularities to both feet. Patient had a diabetic neurological exam today to both their feet and discussed proper shoe gear. Patient education on condition and treatment of condition. Continue with creams to feet twice daily with prescription offered to him Kenneth Tavera DPM documented in this encounter [facility] 03-10-2024 Note [place] [facility] Consul t Note Reason for visit: Complete heart block on event monitor, HFrEF 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%, atrial tachycardia 03/10/24 Patient here for 5 mo follow up bradycardia, complete heart block s/p PPM per Dr. Bishop. He was also admitted to [facility] for NSTEMI last month. Underwent heart cath with Dr. Pena on 02/12. He was started on Ranexa and lisinopril was stopped. Denies chest pain, SOB, and palpitations. Gets lightheaded at times, but no syncopal episodes. 05/07/23 Patient is s/p BiV ICD. 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 patient has got good device threshold. he [...] Son 04/2022 HPI: Lani Lizama is a 73 y.o. year old with past medical history of CAD s/p CABG, PVD, DM2 and hypertension. He was recently admitted to [facility] [place] for NSTEMI. Had inpatient stress test and heart cath. Denies SOB but still having chest pain and has taken nitroglycerin a few times for relief. Had CT chest last week s/p discharge. Cardiac catheterization revealed patent bypass grafts and worsening tulalip vessel disease. Medications were adjusted. I had [...] SH: Social Determinants of Health Tobacco Use: Low Risk (01/23/2024) Received from [facility] [employer] Patient History Smoking Tobacco Use: Never Smokeless Tobacco Use: Never Passive Exposure: Not on file Alcohol Use: Not At Risk (03/13/2018) [facility] Frequency of Alcohol Consumption: Never Average Number of Drinks: Not on file Frequency of Binge Drinking: Not on file Financial Resource Strain: Low Risk (02/13/2024) Overall Financial Resource Strain (CARDIA) Difficulty of Paying Living Expenses: Not very hard Food Insecurity: No Food Insecurity (02/13/2024) Hunger Vital Sign Worried About Running Out of Food in the Last Year: Never true Ran Out of Food in the Last Year: Not on file Transportation Needs: No Transportation Needs (02/13/2024) Transportation Lack of Transportation (Medical): No Lack of Transportation (Non-Medical): Not on file Physical Activity: Not on file Stress: Not on file Social Connections: Not on file Intimate Partner Violence: Unknown (02/13/2024) Humiliation, Afraid, Rape, and Kick questionnaire Fear of Current or Ex-Partner: No Emotionally Abused: Not on file Physically Abused: Not on file Sexually Abused: Not on f (more content not included)... [facility] 02-24-2024 Evaluation note Diagnosis Onset Date Resolution Chronic HFrEF (heart failure with reduced ejection fraction) acute January 9:29am Chronic kidney disease acute No vember 2023 9:29am HTN (hypertension) acute Novemb er 2023 9:29am Hypercholesterolemia acute Nove mber 2023 9:29am Ischemic cardiomyopathy acute N ovember 2023 9:29am Pulmonary nodule acute February 24, 2024 9:29am Type 2 diabetes mellitus with hyperglycemia acute January 9:29am Controlled type 2 diabetes mellitus with diabetic peripheral angiopathy wit deleted [facility] er 2023 9:29am Chronic HFrEF (heart failure with reduced ejection fraction) acute April 16, 2024 8:19am Chronic kidney disease acute Ja nuary 2024 8:19am HTN (hypertension) acute 2024 8:19am Hypercholesterolemia acute 2024 8:19am Ischemic cardiomyopathy acute J anuary 2024 8:19am Pulmonary nodule acute April 16, 2024 8:19am Type 2 diabetes mellitus with hyperglycemia acute April 16, 2024 8:19am BMI 27.0-27.9,adult acute 2024 9:21am Dietary counseling and surveillance acute April 30, 2024 9:21am HTN (hypertension) acute 2024 9:21am DM2 (diabetes mellitus, type 2) deleted April 30, 2024 9:21am HLD (hyperlipidemia) deleted 2024 9:21am [facility] Work Phone: 1([phone]) 245-578011-15-2024 NoteHospital Medicine Discharge Summary Final Discharge Diagnosis: NSTEMI CAD s/p CABG, PCI 08/2023 Chronic heart failure with reduced ejection fraction, NYHA class II Insulin-dependent type 2 diabetes mellitus Chronic kidney disease stage III A Third degree AV block with AICD/pacemaker Essential hypertension Carotid stenosis Hyperlipidemia Peripheral vascular disease Admission Diagnosis: NSTEMI (non-ST elevated myocardial infarction) ([facility]) [I21.4] Hospital course: Lani Lizama is an 73 y.o. male who came from Transferred from [facility] with NSTEMI with NSTEMI. 71-year-old gentleman with past medical history very rich in cardiovascular problems including; CAD with several stents 8 and number, status post CABG with 5 vessel bypass, diabetes type 2, hypertension, HLD, peripheral vessel disease, history of third-degree AV block with AICD and pacemaker, history of CKD stage III as well as carotid stenosis with no procedure on that. Patient was transferred from [facility] to [facility] where he was seen for chest pain that has been going on for most of the day causing him to take nitroglycerin on 5 separate incidences and with intensification of the chest pain at shortening intervals that caused him to call the ambulance. At [facility] workup did show that patient had rising troponins initial 1 was 23 and then 85 isa intensity troponin. There was no mention change on the EKG as was reported to me by the ER physician Dr. Lagos at [facility]. Other workup that was done at [facility] included basic metabolic panel that showed a BUN of 21 creatinine of 1.97 and a glucose of 336, anion gap of 16 and serum CO2 of 22 the rest were unremarkable. CBC was mostly unremarkable. Patient was started on heparin drip as well as on nitroglycerin drip and by the time he got here approximately at 3:15 in the morning patient was completely chest pain-free and had no complaints of any kind. He was alert and oriented and in no apparent distress and gave the history as above. The ER physician from [facility] had spoken to our blood bank specialist here who accepted the patient for transfer to [facility] for possible trip to [place] [place] very early this morning depending on the status of the renal function with creatinine today of 1.97. Nephrology and cardiology were consulted. TTE 02/13/2024 showed EF 25%, regional wall motion abnormalities. Cardiac cath performed on 02/13/2024 showed 3 patent saphenous vein grafts and a patent MENJIVAR to LAD. Patient was started on medical therapy for angina with Imdur and ranolazine. Patient received IV fluids for elevated creatinine. Patient was chest pain-free on the day of discharge. He is advised close follow-up with cardiology and primary care physician. BMP in 1 week is advised. Surgical, Invasive or Diagnostic Procedures Done During Admission: Cardiac Cath Consultations During Admission: Cardiology and Nephrology Dear Dr. Cherie DO, Thomas is advised to follow up with you within 1-2 weeks. Items to follow up in ambulatory setting: Follow-up serial BMPs Follow-up with: Cardiology and PCP Scheduled appointments: Future Appointments Date Time Provider Department Center 03/10/2024 10:45 AM Kevin Jacobs MD [facility] Your medication list START taking these medications Instructions Last Dose Given Next Dose Due ranolazine 500 mg 12 hr tablet Commonly known as: Ranexa Take 1 tablet (500 mg) by mouth two times daily for 196 doses. Do not crush, chew, or split. CHANGE how you take these medications Instructions Last Dose Given Next Dose Due metoprolol succinate XL 50 mg 24 hr tablet Commonly known as: Toprol-XL Start taking on: February 15, 2024 What changed: medication strength See the new instructions. Another medication with the same name was removed. Continue taking this medication, and follow the directions you see here. Take 3 tablets (150 mg) by mouth in the morning for 97 doses. Do not crush or chew. CONTINUE taking these medications Instructions Last Dose Given Next Dose Due ALPRAZolam 0.5 mg tablet Commonly known as: Xanax aspirin 81 mg chewable tablet clopidogrel 75 mg tablet Commonly known as: Plavix docusate sodium 100 mg capsule Commonly known as: Colace empagliflozin 10 mg Commonly known as: Jardiance insulin aspart 100 unit/mL injection vial Commonly known as: NovoLOG insulin detemir 100 unit/mL injection vial Commonly known as: Levemir isosorbide mononitrate ER 60 mg 24 hr tablet Commonly known as: Imdur Take 1 tablet (60 mg) by mouth 2 times daily. loratadine 10 mg tablet Commonly known as: Claritin multivitamin capsule nitroglycerin 0.4 mg SL tablet Commonly known as: Nitrostat PLACE 1 TABLET UNDER TONGUE EVERY 5 MINS, UP TO 3 DOSES NEEDED FOR CHEST PAIN pantoprazole 40 mg EC tablet Commonly known as: ProtoNix rosuvastatin 40 mg tablet Commonly (more content not included)...[facility] 02-13-2024 NoteHospital Medicine Daily Progress Note - 02/13/2024 8:36 AM; Room: [address] [place] [address] Admission: 02/13/2024 2:53 AM; Length of stay: 0 days THE HOSPITALIST TEAM PREFERS TO USE [employer] CHAT FOR COMMUNICATION 7AM-7PM. IF I DO NOT RESPOND WITHIN 15 MINUTES, PLEASE PAGE ME/CALL THROUGH THE MANAGER COUNTRY. FROM 7PM-7AM, PLEASE PAGE [phone](COVR) Code Status: Full Code Barriers to Discharge: NSTEMI Expected Discharge Date: 2-3 days Discharge Destination: home Overview Patient is seen for evaluation and management of chest pain. Subjective Patient was examined at bedside resting comfortably. He presented overnight to ED after transfer from [place]. He states that he had crushing chest pain starting around 5 pm yesterday after he returned to work. Pain was worsen with exertion and relieved when resting. Radiation to the left shoulder and jaw. He states he took nitroglycerin around 5 times and aspirin before coming into the ED. It initially helped, but the pain kept reoccurring and worsening after each nitro dose. He was started on a nitro drip and heparin last night. Since, chest pain has improved. Initially pain was a 8/10, but now it is a 0/10. Denies any current fever, chills, N/V, dizziness. Per RN, patient had no acute events overnight. He has been able to ambulate on his own. No new concerns today. Physical Exam Visit Vitals BP 104/59 (BP Location: Left arm, Patient Position: Lying) Pulse 70 Temp 35.9 ???C (96.6 ???F) (Temporal) Resp 13 Intake/Output Summary (Last 24 hours) at 02/13/2024 0836 Last data filed at 02/13/2024 0600 Gross per 24 hour Intake 21.16 ml Output -- Net 21.16 ml Physical Exam Constitutional: Appearance: Normal appearance. HENT: Head: Normocephalic and atraumatic. Nose: Nose normal. Cardiovascular: Rate and Rhythm: Normal rate and regular rhythm. Pulses: Normal pulses. Heart sounds: Normal heart sounds. Pulmonary: Effort: Pulmonary effort is normal. Breath sounds: Normal breath sounds. Abdominal: General: Abdomen is flat. Palpations: Abdomen is soft. Musculoskeletal: Cervical back: Normal range of motion and neck supple. Skin: General: Skin is warm and dry. Neurological: General: No focal deficit present. Mental Status: He is alert and oriented to person, place, and time. Mental status is at baseline. Psychiatric: Mood and Affect: Mood normal. Behavior: Behavior normal. Thought Content: Thought content normal. Judgment: Judgment normal. Estimated body mass index is 26.93 kg/m??? as calculated from the following: Height as of this encounter: 1.702 m (5' 7.01 ). Weight as of this encounter: 78 kg (172 lb). Active Inpatient Problems Principal Problem: NSTEMI (non-ST elevated myocardial infarction) ([facility]) Active Problems: Coronary atherosclerosis Essential hypertension History of coronary artery bypass surgery Mixed hyperlipidemia Stage 3 chronic kidney disease ([facility]) Chest pain Type 2 diabetes mellitus with hyperglycemia ([facility]/HCC) PVD (peripheral vascular disease) ([facility]) Carotid stenosis, asymptomatic Assessment and Plan Lani Lizama is a 73 year old male with a past medical history of CAD with 9 stents, 5 vessel CABG, HTN, HLD, DM2, third degree AV block with pacemaker/AICD presented as a transfer from [place] ED with worsening crushing, radiating chest pain. Patient is being admitted to [facility] and cardiology has been consulted. Tentative plan for cath this morning. NSTEMI: -Admit patient to the hospital to the coronary floor on telemetry -Continue heparin drip and IV nitroglycerin -Trend troponin -Monitor electrolytes especially magnesium and potassium and correct any abnormalities -PRN nitroglycerin and morphine sulfate -Supplemental oxygen to keep O2 saturation above 96%. -Cardiology consulted. Tentative plan for cath and ECHO this morning. CAD s/p CABG X5, PCI 08/2023 -Continue statin and plavix Chronic heart failure with reduced ejection fraction, NYHA class II S/p biventricular ICD Type 2 Diabetes with hyperglycemia -Continue insulin sliding scale -Continue home Lantus and Farxiga -Obtain hemoglobin A1c CKD stage 3a: -Baseline creatinine around 1.4-1.5 -Avoid nephrotoxic agents -Nephrology was consulted on admission. Third-degree AV block with AICD/pacemaker -Continue to monitor Essential hypertension -Continue Aldactone, lisinopril on hold. Carotid stenosis Hyperlipidemia Peripheral vascular disease -Continue rosuvastatin 40 mg, plavix VTE Prophylaxis: IV heparin Scheduled Meds ALPRAZolam, 0.5 mg, oral, TID aspirin, 81 mg, oral, Daily with breakfast clopidogrel, 75 mg, oral, Daily dapagliflozin propanediol, 10 mg, oral, Daily docusate sodium, 100 mg, oral, Daily insulin glargine, 10 Units, subcutaneous, Nightly insulin lispro, 0-10 Units, subcutaneous, TID with meals And insulin lispro, 0-8 Units, subcutaneous, Nightly isosorbide mononitra (more content not included)...[facility]11-14-2024 NoteHospital Medicine History and Physical 02/13/2024 3:40 AM THE HOSPITALIST TEAM PREFERS TO USE [employer] FOR NON-URGENT COMMUNICATION 7AM-7PM. IF I DO NOT RESPOND WITHIN 20 MINUTES OR URGENT MATTERS, PLEASE CALL THROUGH THE MANAGER COUNTRY. FROM 7PM-7AM, PLEASE PAGE [phone](COVR). Chief Complaint No chief complaint on file. History of Present Illness Lani Lizama is an 73 y.o. male who came from Transferred from [facility] with NSTEMI with NSTEMI. 71-year-old gentleman with past medical history very rich in cardiovascular problems including; CAD with several stents 8 and number, status post CABG with 5 vessel bypass, diabetes type 2, hypertension, HLD, peripheral vessel disease, history of third-degree AV block with AICD and pacemaker, history of CKD stage III as well as carotid stenosis with no procedure on that. Patient was transferred from [facility] to [facility] where he was seen for chest pain that has been going on for most of the day causing him to take nitroglycerin on 5 separate incidences and with intensification of the chest pain at shortening intervals that caused him to call the ambulance. At [facility] workup did show that patient had rising troponins initial 1 was 23 and then 85 isa intensity troponin. There was no mention change on the EKG as was reported to me by the ER physician Dr. Lagos at [facility]. Other workup that was done at [facility] included basic metabolic panel that showed a BUN of 21 creatinine of 1.97 and a glucose of 336, anion gap of 16 and serum CO2 of 22 the rest were unremarkable. CBC was mostly unremarkable. Patient was started on heparin drip as well as on nitroglycerin drip and by the time he got here approximately at 3:15 in the morning patient was completely chest pain-free and had no complaints of any kind. He was alert and oriented and in no apparent distress and gave the history as above. The ER physician from [facility] had spoken to our blood bank specialist here who accepted the patient for transfer to [facility] for possible trip to the [employer] very early this morning depending on the status of the renal function with creatinine today of 1.97. Review of System and Physical Exam Temp: [36.5 ???C (97.7 ???F)] 36.5 ???C (97.7 ???F) Heart Rate: [88] 88 Resp: [15] 15 BP: (138)/(77) 138/77 Physical Exam Constitutional: Appearance: Normal appearance. He is normal weight. HENT: Head: Normocephalic and atraumatic. Mouth/Throat: Mouth: Mucous membranes are moist. Pharynx: Oropharynx is clear. Eyes: Extraocular Movements: Extraocular movements intact. Pupils: Pupils are equal, round, and reactive to light. Cardiovascular: Rate and Rhythm: Tachycardia present. Heart sounds: No murmur heard. No gallop. Pulmonary: Effort: Pulmonary effort is normal. Breath sounds: Normal breath sounds. Abdominal: General: Abdomen is flat. There is no distension. Palpations: Abdomen is soft. There is no mass. Tenderness: There is no abdominal tenderness. There is no guarding or rebound. Musculoskeletal: General: Normal range of motion. Cervical back: Normal range of motion and neck supple. Skin: General: Skin is warm and dry. Neurological: General: No focal deficit present. Mental Status: He is alert and oriented to person, place, and time. Psychiatric: Mood and Affect: Mood normal. Behavior: Behavior normal. Review of Systems Constitutional: Negative. HENT: Negative. Eyes: Negative. Respiratory: Negative. Cardiovascular: Negative. Gastrointestinal: Negative. Endocrine: Negative. Genitourinary: Negative. Musculoskeletal: Negative. Neurological: Negative. Hematological: Negative. Psychiatric/Behavioral: Negative. Problem List Principal Problem: NSTEMI (non-ST elevated myocardial infarction) ([facility]) Active Problems: Coronary atherosclerosis Essential hypertension History of coronary artery bypass surgery Mixed hyperlipidemia Stage 3 chronic kidney disease (CMS/HCC) Chest pain Type 2 diabetes mellitus with hyperglycemia ([facility]) PVD (peripheral vascular disease) ([facility]) Carotid stenosis, asymptomatic Assessment and Plan PLAN OF CARE: 71-year-old gentleman with very profuse history of cardiovascular disease including prior CAD with stents and CABG as well as hypertension and HLD comes seen with acute NSTEMI. Patient is being admitted to [facility] and cardiology has been consulted with possible trip to the [place] at the earliest possible time by cardiology. 1. Acute NSTEMI: -Admit patient to the hospital to the coronary floor on telemetry -Commence patient immediately on heparin drip (done) -IV nitroglycerin (done) -Obtain and trend troponins -Monitor electrolytes especially magnesium and potassium and correct any abnormalities -Watch patient for chest pain and treat with nitroglycerin and morphine sulfate as need be -Consult cardiology (done) (more content not included)...[facility]10-24-2024 History of Present illness Narrative* Kenneth Tavera, DPM - 01/23/2024 11:30 AM EDT Patient: Lani Lizama : 1950 PCP: Harley Crespo MD SUBJECTIVE This is a 73 y.o. male that presents today with a CC of elongated, thick nails. Pt states nails have been elongated and thick for many years and cause pain with ambulation in shoegear. Pt has tried previous treatment with minimal relief. Pt presents today for nail care and treatment. Patient is DM2 with peripheral neuropathy Patient also presents today for follow-up of dry skin and fissures to feet and has only been using prescribed or recommended [id number] cream with some improvement. Patient also has longstanding history of multiple MIs and cardiac history Allergies: Allergies Allergen Reactions Other Other Reaction(s): Unknown Received name: Nkda Past Medical History: Past Medical History: Diagnosis Date Diabetic retinopathy (CMS/HCC) HTN (hypertension) (CMS/HCC) Hypercholesteremia (CMS/HCC) UT (myocardial infarction) (CMS/HCC) 2021 Two total: 02/20, 03/22 Type 1 diabetes mellitus (CMS/HCC) Medications: Current Outpatient Medications: ALPRAZolam (Xanax) 0.5 MG tablet, Take 1 tablet by mouth in the morning and 1 tablet at noon and 1 tablet in the evening., Disp: , Rfl: amLODIPine (Norvasc) 10 MG tablet, Take 10 mg by mouth in the morning. as directed., Disp: , Rfl: aspirin 81 MG chewable tablet, Chew 1 tablet every day by oral route., Disp: , Rfl: atorvastatin (Lipitor) 80 MG tablet, 1 (one) time each day at the same time., Disp: , Rfl: bumetanide (Bumex) 0.5 MG tablet, Take 0.5 mg by mouth in the morning., Disp: , Rfl: carvedilol (Coreg) 12.5 MG tablet, Take 12.5 mg by mouth in the morning and 12.5 mg in the evening.Take with meals., Disp: , Rfl: cholecalciferol (Vitamin D-3) 25 MCG (1000 UT) capsule, Take 1,000 Units by mouth in the morning., Disp: , Rfl: clopidogrel (Plavix) 75 MG tablet, Take 75 mg by mouth in the morning., Disp: , Rfl: famotidine (Pepcid) 40 MG tablet, Take 40 mg by mouth in the morning., Disp: , Rfl: HYDROcodone-acetaminophen (Wilson) 5-325 MG tablet, TAKE 1 TABLET BY MOUTH EVERY 4 TO 6 HOURS NEEDED FOR PAIN, Disp: , Rfl: Insulin Aspart 100 UNIT/ML solution, Inject under the skin., Disp: , Rfl: insulin detemir (Levemir) 100 UNIT/ML injection, Inject under the skin twice a day., Disp: , Rfl: insulin glargine (Lantus SoloStar) 100 UNIT/ML pen, Subcutaneous for 90, Disp: , Rfl: insulin lispro (HumaLOG) 100 UNIT/ML injection, Subcutaneous, Disp: , Rfl: insulin regular (HumuLIN R,NovoLIN R) 100 UNIT/ML injection, Inject 30 Units under the skin in the morning and 30 Units at noon and 30 Units in the evening. Inject with meals., Disp: , Rfl: isosorbide mononitrate ER (Imdur) 60 MG 24 hr tablet, Take 60 mg by mouth in the morning and 60 mg before bedtime., Disp: , Rfl: lisinopril 5 MG tablet, Take 5 mg by mouth in the morning., Disp: , Rfl: loratadine (Claritin) 10 MG tablet, 1 (one) time each day at the same time., Disp: , Rfl: lovastatin (Mevacor) 40 MG tablet, Take 40 mg by mouth in the evening., Disp: , Rfl: metoprolol succinate XL (Toprol-XL) 50 MG 24 hr tablet, 1 (one) time each day at the same time., Disp: , Rfl: nitroglycerin (Nitrostat) 0.4 MG SL tablet, PLACE 1 TABLET UNDER TONGUE EVERY 5 MINS, UP TO 3 DOSESAS NEEDED FOR CHEST PAIN, Disp: , Rfl: pantoprazole (ProtoNix) 40 MG EC tablet, TAKE 1 TABLET BY MOUTH DAILY ON AN EMPTY STOMACH FOLLOWED BY BREAKFAST 30 MINUTES AFTER, Disp: , Rfl: Social History: Social History Socioeconomic History Marital status: Unknown Spouse name: Not on file Number of children: Not on file Years of education: Not on file Highest education level: Not on file Occupational History Not on file Tobacco Use Smoking status: Never Smokeless tobacco: Never Substance and Sexual Activity Alcohol use: Defer Drug use: Defer Sexual activity: Not on file Other Topics Concern Not on file Social History Narrative Not on file Social Drivers of Health Financial Resource Strain: Low Risk (09/26/2023) Received from [facility] Overall Financial Resource Strain (CARDIA) Difficulty of Paying Living Expenses: Not very hard Food Insecurity: No Food Insecurity (09/26/2023) Received from [facility] Hunger Vital Sign Within the past 12 months, you worried that your food would run out before you got the money to buymore.: Never true Ran Out of Food in the Last Year: Not on file Transportation Needs: No Transportation Needs (09/26/2023) Received from [facility] Transportation In the past 12 months, has lack of transportation kept you from medical appointments or from getting medications?: No Lack of Transportation (Non-Medical): Not on file Physical Activity: Not on file Stress: Not on file Social Connections: Not on file Intimate Partner Violence: Unknown (09/26/2023) Received from [facility] Humiliation, Afraid, Rape, and Kick questionnaire Fear of Current or Ex-Partner: No Emotionally Abused: Not on file Physically Abused: Not on file Sexually Abused: Not on file Housing Stability: Low Risk (09/26/2023) Received from [facility] Housing Stability Vital Sign Unable to Pay for Housing in the Last Year: Not on file Number of Places Lived in the Last Year: Not on file In the last 12 months, was there a time when you did not have a steady place to sleep or slept in ashelter (including now)?: No ROS: General: denies fever, chills, fatigue, malaise Gastrointestinal: denies abdominal pain, ulcers, or changes in appetite or bowel habits Musculoskeletal: Positive generalized history of arthritis, denies loss of strength, pain to hip, knees, back Cardiovascular: d positive history of pacemaker defibrillator with multiple MIs in the past and CABG procedure OBJECTIVE LE EXAM: DERM: Elongated thick yellow crumbly nails digits 1 through 10. Negative hair growth with thin shiny atrophic skin bilaterally. Diminished Dry scaly skin to bilateral heels VASC: Positive DP and negative PT pedal pulses NEURO: 5.07 [place] Chun monofilament test diminished to digits and forefoot bilaterally 125Hz tuning fork diminished to 1st MPJ bilaterally ORTHO: Positive pain on palpation to nails 1 through 10 ASSESSMENT 1. Diabetes 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, without long-term current use of insulin ([facility]) 2. Pain due to onychomycosis of toenails of both feet PLAN Discussed proper foot care with patient today. Debride nails in length and thickness digits 1 through 10 Patient educated today on proper diabetic foot care including monitoring feet daily for any signs of infection openings in the skin or irregularities to both feet. Patient had a diabetic neurologicalexam today to both their feet and discussed proper shoe gear. Patient education on condition and treatment of condition. Continue with creams to feet twice daily with prescription offered to him Kenneth Tavera DPM documented [facility] [id number] Chief Complaint: Patient here for follow up [facility] for NSTEMI. Underwent PCI on 09/27/[address] Foreman. Says he feels much better s/p intervention. Denies chest pain, SOB, palpitations, and lightheadedness/syncope. HPI: Lani Lizama is a 72 y.o. male Hospital Medicine Discharge Summary Final Discharge Diagnosis: #NSTEMI #chronic HFrEF NYHA class I #CAD #HTN #Diabetes #Hx bradycardia Admission Diagnosis: NSTEMI (non-ST elevated myocardial infarction) ([facility]) [I21.4] Hospital course: 72-year-old male with past medical history significant for CAD status post CABG x 5 vessels and history of 7 PCI's who presented to the hospital due to chest pain. The patient does have HFrEF with an EF of 15 to 20% status post BiV [employer] A[employer]-D. Patient reports compliance with his medications and that he is not requiring diuretics. Initial evaluation at the outside hospital showed elevated high-sensitivity troponins and he was sent to [facility] for an evaluation by cardiology. Patient [...] artery stenosis, Coronary artery disease, Diabetes mellitus ([facility]), Hyperlipidemia, Hypertension, PVD (peripheral vascular disease) ([facility]), and Third degree heart block ([facility] [facility] Surgical History He has a past surgical [...] 98% BMI 27.88 kg (more content not included)...[facility]06-29-2024 Note Attestation signed by Kevin Jacobs MD at 09/30/2023 12:13 PM By using [...] be an additional personal documentation from me. Cardiology Progress Note Subjective Subjective: Lani Lizama [...] Heidy Dee MD, 75 mg at 09/28/23 0919 dapagliflozin propanediol (Farxiga) tablet 10 mg, 10 mg, oral, Daily, Heidy Dee MD, 10 mg at 09/28/23 0920 glucose chewable tablet 24 g, 24 g, oral, q15 min PRN OR dextrose 50 % in water (D50W) syringe 25 g, 25 g, intravenous, q15 min PRN, Heidy Dee MD docusate sodium (Colace) capsule 100 mg, 100 mg, oral, Daily, Heidy Dee MD, 100 mg at 09/28/23 0919 isosorbide mononitrate ER (Imdur) 24 hr tablet 60 mg, 60 mg, oral, 2 times daily, Heidy Dee MD lisinopril tablet 2.5 mg, 2.5 mg, oral, BID, Heidy Dee MD, 2.5 mg at 09/28/23 0920 metoprolol succinate XL (Toprol-XL) 24 hr tablet 150 mg, 150 mg, oral, Daily, Heidy Dee MD, 150 mg at 09/28/23 0920 pantoprazole (ProtoNix) EC tablet 40 mg, 40 mg, oral, Daily, Heidy Dee MD, 40 mg at 09/28/23 0631 rosuvastatin (Crestor) tablet 40 mg, 40 mg, oral, Nightly, Heidy Dee MD, 40 mg at 09/27/23 2134 Insert peripheral IV, , , Once AND Saline lock IV, , , Once AND sodium chloride flush 10 mL, 10 mL, intravenous, q8h PRN, Catalina Marin MD traMADol (Ultram) tablet 50 mg, 50 mg, oral, q6h PRN, Jesus Alexander, 50 mg at 09/27/23 1744 Objective: Patient Vitals for the past 24 [...] -- -- 81 13 94 % -- 09/27/232014 147/71 36.4 ???C (97.5 ???F) Temporal 78 [...] ???F) Temporal 87 18 98 % -- 09/27/23 1713 -- -- -- -- -- 100 % [...] Value Ventricular Rate 78 Atrial Rate 78 SD Interval 160 QRS DURATION 144 QT Interval 444 QTC CALCULATION(BAZETT) 506 P Strawberry 49 R-Strawberry -41 T Wave Strawberry 106 Impression Atrial-sensed ventricular-paced rhythm Abnormal ECG When compared with ECG of 26-SEP-2023 18:59, Vent. rate has decreased BY 3 BPM Lab Results Component Value Date TROPONINI 3.05 (HH) 09/27/2023 Complete Echo (TTE) w/wo Imaging Agent, Strain, 3D, Bubble Study Result Date: 09/27/2023 1 1 [facility] Heart Station [address] [place] [address] [phone] (fax) Echocardiogram-[facility] Name: LANI LIZAMA Study Date: 09/27/2023 07:42 AM B/P: 118 mmHg/57 mmHg (more content not included)...[facility] 09-28-2023 NoteHospital Medicine Discharge Summary Final Discharge Diagnosis: #NSTEMI #chronic HFrEF NYHA class I #CAD #HTN #Diabetes #Hx bradycardia Admission Diagnosis: NSTEMI (non-ST elevated myocardial infarction) ([facility]) [I21.4] Hospital course: 72-year-old male with past medical history significant for CAD status post CABG x 5 vessels and history of 7 PCI's who presented to the hospital due to chest pain. The patient does have HFrEF with an EF of 15 to 20% status post BiV ENGINEERING AIDE-D. Patient reports compliance with his medications and that he is not requiring diuretics. Initial evaluation at the outside hospital showed elevated high-sensitivity troponins and he was sent to [facility] for an evaluation by cardiology. Patient [...] days Lab Units 09/28/23 0414 09/27/23 0359 WBC AUTO 10*3/uL 7.88 7.95 [...] Heidy Dee MD Hospital Medicine 09/28/2023 11:15 [facility] NotePatient: Lani Lizama Procedure Information Date/Time: 09/27/23 1300 Procedure: Coronary angiography Location: [facility] / [facility] (Cath) Providers: Luisito Foreman MD [...] discussed with fellow and attending. Additional [facility] Note Adult Nutrition Assessment: Name: Lani Lizama Date: 1950 Date of Visit: 09/27/23 Admission Dx: NSTEMI (non-ST elevated myocardial infarction) (CMS/HCC) [I21.4] Reason for assessment: high risk -wound Information obtained from: patient, family, medical record, and nursing -son at bedside Past Medical History: Diagnosis Date Carotid artery stenosis Coronary artery disease Diabetes mellitus ([facility]) Hyperlipidemia Hypertension PVD (peripheral vascular disease) ([facility]) Third degree heart block ([facility]) CABG x5, stents, EF 30%, HF Current [...] (H) 09/27/2023 1127 BUN 26 (H) 09/27/2023 0359 CREATININE 1.56 (H) 09/27/2023 0359 NA 140 09/27/2023 0359 K 4.3 09/27/2023 0359 MG 2.0 10/15/2018 0556 HGB 15.3 09/27/2023 0359 WBC 7.95 09/27/2023 0359 CHOL 108 (L) [...] Question: Reason for NPO: Answer: Operation/Procedure 09/26/23 8913 Percent Meals Eaten (%): 100 (09/26/23 1851 : Carolina Bragg RN) Nutrition Risk: Low Malnutrition Assessment: Patient at risk for malnutrition according to hospital criteria, but does not meet the clinical characteristics per the Academy of Nutrition and Dietetics, and the [place] [employer] of Enteral and Parenteral Nutrition to [...] compliance w/ MNT Contact the dietitian via [employer] chat 8A-4P Saturday through Saturday or call extension [phone]. For s & hols, the dietitian can be reached via pager [phone] from 9A-3P. Unable to respond to [employer] chat messages on Saturday & .[facility]06-28-2024 Note Attestation signed by Heidy Dee MD at [...] on heparin drip, pending coronary angiogram today. Hospital Medicine Daily Progress Note - 09/27/2023 10:26 AM; Room: [facility]4/3184-01 Admission: 09/26/2023 4:35 PM; Length of stay: 1 days THE HOSPITALIST TEAM PREFERS TO USE [employer] CHAT FOR COMMUNICATION 7AM-7PM. IF I DO NOT RESPOND WITHIN 15 MINUTES, PLEASE PAGE ME/CALL THROUGH THE MANAGER COUNTRY. FROM 7PM-7AM, PLEASE PAGE [phone](COVR) Code Status: Full Code Barriers to Discharge: [...] disease, 3rd degree heart block (s/p BiV ENGINEERING AIDE-D) that presented to OSH w/ c/o chest pain that radiated to left arm and jaw. Pain was described as centrally-located and pressure-like, and unrelieved by Nitroglycerin x3. Patient started on nitroglycerin drip which provided relief. Initial tropin was unremarkable, but repeat was elevated (2962). He was started on heparin and transferred to [facility]. Today, patient is examined at bedside, [...] Problem: NSTEMI (non-ST elevated myocardial infarction) ([facility]) Assessment and Plan #NSTEMI - Supplemental oxygen NC - DAPT (aspirin 81 mg, daily; and Plavix 75 mg, daily) - Metoprolol Succinate XL (150 mg, daily) - Rosuvastatin (40 mg, nightly) #HFrEF - Echo pending #CAD - Angiogram planned today #HTN #Diabetes - Insulin sliding scale - Goal blood sugar 140-180 #Hx bradycardia - s/p ENGINEERING AIDE-D Wounds: Wound 09/26/23 Other (comment) Toe (Comment [...] 81 mg, oral, Daily (more content not included)...[facility] Chief Complaint: [...] (CMS/HCC), Hyperlipidemia, Hypertension, PVD (peripheral vascular disease) ([facility]), and Third degree heart block ([facility]). Surgical History He has a past surgical [...] PSYCH: appropriate mood, affect, and judgement. Investigations: Echocardiogram-[facility] Name: LANI LIZAMA Study Date: 01/25/2023 12:56 PM B/P: 138 mmHg/71 mmHg HR: Date of : 1950 Location: [facility] Height: 67 in. Age: 72 year(s) Patient Room : 3141 Weight: 171 lb. Gender: Male Patient Status: InPt BSA: 1.89 m2 Indication: Chest Pain Examination: Echocardiogram (Complete), Lumason Contrast Image Quality: Poor Patient Consent: Procedure explained to patient s p @ c 3 Conclusions Left Ventricle: The left ventricle is normal size. Global left connie (more content not included)...[facility]02-06-2024 NoteUT Cardiology Consult Note Reason for visit: Complete heart block on event monitor, HFrEF 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%, atrial tachycardia 05/07/23 Patient is s/p BiV ICD. 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 patient has got good device threshold. he [...] and hypertension. He was recently admitted to [facility] [place] [place] for NSTEMI. Had inpatient stress test and heart cath. Denies SOB but still having chest pain and has taken nitroglycerin a few times for relief. Had CT chest last week s/p discharge. Cardiac catheterization revealed patent bypass grafts and worsening tulalip vessel disease. Medications were adjusted. I had [...] (Plavix) 75 mg ta (more content not included)...[facility]01-30-2024 Evaluation note* Encounter Date Diagnosis Assessment Notes Treatment Notes Treatment Clinical Notes Apr, Chronic HFrEF (heart failure with reduced ejection fraction) (ICD-10 - I50.22) [employer] Other [id number] NoteUT Cardiology Consult Note Reason for visit: [...] and hypertension. He was recently admitted to [facility] [place] [place] for NSTEMI. Had inpatient stress test and heart cath. Denies SOB but still having chest pain and has taken nitroglycerin a few times for relief. Had CT chest last week s/p discharge. Cardiac catheterization revealed patent bypass grafts and worsening tulalip vessel disease. Medications were adjusted. I had [...] stenosis Coronary artery disease Diabetes mellitus ([facility]/HCC) Hyperlipidemia Hypertension PVD (peripheral vascular disease) ([facility]) Third degree heart block ([facility]) PSH: Past Surgical History: Procedure Laterality Date [...] route. insulin detemir (Levemi (more content not included)...[facility]01-30-2024 NotePatient here for follow up echo. He is doing very well, as chest pain and palpitations have subsided. Taking bumex prn now and hasn't been swelling much. Denies SOB and lightheadedness. Review of Systems Musculoskeletal: Positive for arthritis, back pain, joint pain and myalgias. All other systems reviewed and are negative.[facility] 03-12-2023 Evaluation note* Encounter Date Diagnosis Assessment [...] PAP-Jardiance was denied, pt given information on [facility] diabetes discount program instructed to apply order [...] hypertension material was printed on diony. 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 Mar, BMI 27.0-27.9,adult (ICD-10 - Z68.27) Eating healthy: tips to make it easier material was printed [employer] Other 2023 Evaluation note* Encounter Date Diagnosis Assessment Notes Treatment Notes Treatment Clinical Notes Jan, Chronic HFrEF (heart failure with reduced ejection fraction) (ICD-10 - I50.22) [employer] Other 10-09-2023 Evaluation note* Encounter Date Diagnosis Assessment Notes [...] Continue statins. Monitor LFTs and lipid profile. [employer] Other 10-06-2023 Evaluation note* Encounter Date Diagnosis Assessment Notes Treatment Notes Treatment Clinical Notes Dec, Ground glass opacity present on imaging of lung (ICD-10 - R91.8) CT: RUL, RML - 12/2022Dec, Pulmonary nodule (ICD-10 - R91.1) CT: 7mm RML nodule - 12/2022 [employer] Other 10-03-2023 Evaluation note* Encounter Date Diagnosis Assessment Notes Treatment Notes Treatment Clinical Notes Dec, Stage 3b chronic kidney disease (ICD-10 - N18.32) [employer] Other 10-02-2023 Evaluation note* Encounter Date Diagnosis [...] risk for cerebrovascular and cardiovascular disease. 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 insulin (ICD-10 - Z79.4) [...] be contributing - must discuss w/ Cardiology [employer] Other 07-03-2023 Evaluation note* Encounter Date Diagnosis Assessment Notes Treatment Notes Treatment Clinical Notes Sep, ASHD (arteriosclerotic heart disease) (ICD-10 - I25.10) [employer] Other 06-21-2023 Evaluation note* Encounter Date Diagnosis Assessment Notes Treatment Notes Treatment Clinical Notes Aug, ASHD (arteriosclerotic heart disease) (ICD-10 - I25.10) [employer] Other 06-02-2023 Evaluation note* Encounter Date Diagnosis [...] inserts to prevent callus formation.Fall precautions. Aug, FDC (current) use of insulin (ICD-10 - Z79.4) [employer] Other 05-11-2023 Evaluation note* Encounter Date Diagnosis Assessment Notes Treatment Notes Treatment Clinical Notes July, Ground glass opacity present on imaging of lung (ICD-10 - R91.8) CT: RML,RUL infiltrate - 12/2021, CT: RML,RUL improved - 03/2022 CT: RML, RUL, GGO improved - 07/2022 [employer] Other 04-03-2023 Evaluation note* Encounter Date Diagnosis [...] D and PTH. Advised low phosphorus diet. [employer] Other 03-30-2023 Evaluation note* Encounter Date Diagnosis [...] are reviewed at the office visit. May, FDC (current) use of insulin (ICD-10 - Z79.4) [...] (ICD-10 - Z12.5) Yearly PSA and ABDELRAHMAN [employer] Other 03-28-2023 Evaluation note* Encounter Date Diagnosis [...] 2. Blood glucose levels stable. According to [employer] cgm download 06/13/2022- 3: Average glucose 190. [...] diabetes medication issues. 6. Prescriptions: BI PAP-Jardiance; UGTIERREZ PAP-Novolog/Levemi r/Ozempic; Sample pen of Ozempic 2mg/3mL given to patient 06/26/22. Called [facility] rx was processed 06/24/22 and their [...] hypertension material was printed on diony. May, FDC current use of insulin (ICD-10 - Z79.4) May, Hyperlipidemia (ICD-10 - E78.5) High cholesterol material was printed 05/2022 ldl 69- on statin. May, BMI 27.0-27.9,adult (ICD-10 - Z68.27) Eating healthy: tips to make it easier material was printed [employer] Other 02-25-2023 Evaluation note* Encounter Date Diagnosis Assessment Notes Treatment Notes Treatment Clinical Notes May, Abnormality of lung on CXR (ICD-10 - R91.8) [employer] Other 12-20-2022 Evaluation note* Encounter Date Diagnosis [...] 2. Blood glucose levels stable. According to [employer] cgm download 03/07/2022-03/20/20 22: Average glucose 144. Above 250-0%, >180- 15%, 70-180-85%, <70-0%, <54-0%. CV 24.3%. Reviewed download with pt, no incidence of hypoglcyemia noted. Glucose rise between 12-6pm. D/t current shortage of ozempic, recommend pt reduce dose to 0.5mg once weekly until shipment recieved from [facility], then increase to 1mg once weekly. [...] hypertension material was printed on diony. Mar, FDC current use of insulin (ICD-10 - Z79.4) Mar, Hyperlipidemia (ICD-10 - E78.5) High cholesterol material was printed 06/2021 ldl 48- on statin. Mar, BMI 26.0-26.9,adult (ICD-10 - Z68.26) Eating healthy: tips to make it easier material was printed 9 pound weight loss from last visit, continue with weight loss efforts [employer] Other 11-10-2022 Evaluation note* Encounter Date Diagnosis Assessment Notes Treatment Notes Treatment Clinical Notes Jan, Diabetes mellitus with chronic kidney disease (ICD-10 - E11.22) [employer] Other 10-19-2022 Discharge summary Author Gagan Shahid [facility] January 17, 2022 3:02pm Note Date/Time January 17, 2022 3 :02pm [facility] [address] [place], [place] [id number] Discharge Summary Signed Patient: Lani Lizama MR#: [id number] : 1950 Acct:[id number] Age/Sex: 71 / M Adm Date: 2 Loc: Room: [address] [place] [address]: Gagan Shahid DO Copies to: [...] thought this to 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 Cardiac catheterization was undergone on 01/16/2022 showing [...] levels as before. DISCHARGE INSTRUCTIONS FOR CARDIAC [facility] PHONE NUMBER OF YOUR PHYSICIAN: [phone] PROCEDURE: Heart Cath The following instructions have [...] cold, numb, blue or white, call the blood bank specialist immediately. 4. ACTIVITY: You are advised to [...] bottle, follow the instructions on the bottle. [facility] is not responsible for incorrect prescription [...] Harley Crespo DO [Primary Care Provider] - 10/25/22 9:00 am (You have been scheduled for a follow up appointment for the following date and time, please call to reschedule if needed.) Callie Fair APRN [Nurse Practitioner] - 01/24/22 4:00 pm Documented By: Gagan Shahid DO 01/17/22 14 57 Signed By: <Electronically signed by Gagan Shahid DO> 01/17/22 8841 [facility] Work Phone: 1(940) 601-246710-19-2022 Progress note Author Luis Alfredo Borges [facility] January 17, 2022 11:47am Note Date/Time January 17, 2022 1 1:47am [facility] [address] [place] [address] Cardiology Progress Note Signed Patient: Lani Lizama MR#: [id number] : 1950 Acct:[id number] Age/Sex: 71 / M Adm Date: 2 Loc: Room: [address] [place] [address] Type: ADM IN Attending Dr: Gagan Shahid [...] is also notable worsening of the patient's tulalip occlusive coronaryheart disease particularly in the microcirculation [...] daily 3. Patient does have a primary blood bank specialist near his home in [place]. We willschedule him 1 follow-up visit in [facility] for left wrist check and also for counseling and reinforcement/referral to phase 2 monitored cardiac rehabilitation which the patient desires to perform in [place]. 4. Instructed the patient that he can [...] signed by Luis Alfredo Borges MD> 01/17/22 1149 [facility] Work Phone: 1(850) 556-860510-18-2022 Progress note Author Gagan Shahid [facility] January 16, 2022 4:09pm Note Date/Time January 16, 2022 4 :09pm [facility] [address] [place] [address] Hospitalist Progress Note Signed Patient: Lani Lizama MR#: [id number] : 1950 Acct:[id number] Age/Sex: 71 / M Adm Date: 2 Loc: 3T Room: [address] [place] [address] Type: ADM IN Attending Dr: Gagan Shahid [...] 25 Mg Tablet PO 01/17/23 07:59 BID.WITH.MEALS RCIARDA Clopidogrel Bisulfate 75 mg 01/16/22 09:00 01/16/22 [...] <Electronically signed by Gagan Shahid DO> 01/16/22 2586 [facility] Work Phone: 1(877) 109-170910-18-2022 [facility] Consult note Author Luis Alfredo Borges [facility] January 16, 2022 10:24am Note Date/Time January 16, 2022 1 0:24am [facility] [address] [place] [address] Cardiology Consult Note Signed Patient: Lani Lizama MR#: [id number] : 1950 Acct:[id number] Age/Sex: 71 / M Adm Date: 2 Loc: Room: [address] [place] [address] Type: ADM IN Attending Dr: Gagan Shahid [...] well as history of PCI done here [facility] per Dr. Saldaña in May 2020 [...] he activated EMS and was taken to [facility] emergency department. There the patient was [...] Lymph # (Auto) 1.0 1.6 (1.00-4.8) x10E3/uL [place] # (Auto) 0.4 0.8 (0.0-0.8) x10E3/uL Eos [...] nonspecific abnormality, ST segment, and/or T wave UT, pacemaker, normal Normal tracing: no change compared [...] very pleasant patient Documented By: Luis Alfredo Bogres MD 01/16/22 1018 Signed By: <Electronically signed by Luis Alfredo Borges MD> 01/16/22 1024 [facility] Work Phone: 1(180) 193-322210-17-2022 History and physical note Author Gagan Shahid [facility] January 15, 2022 6:56pm Note Date/Time January 15, 2022 6 :02pm [facility] [address] [place] [address] Hospitalist H&P Signed Patient: Lani Lizama MR#: [id number] : 1950 Acct:[id number] Age/Sex: 71 / M Adm Date: 2 Loc: Room: [address] [place] [address] Type: ADM IN Attending Dr: Gagan Shahid [...] need for cardiovascular evaluation he was [facility] for further management and cardiology consultation. [...] negative unless noted below or in HPI [facility] Vaccinated for COVID-19?: Yes Medical History (Updated 07/10/21 @ 10:30 by Shannon Escobar, ) Congestive heart failure (CHF) COVID-19 DM2 (diabetes [...] % (Auto) 13.8 % (.) 01/15/22 15:00 [place] % (Auto) 6.1 % (.) 01/15/22 15:00 Eos % (Auto) 0.9 % (.) 01/15/22 15:00 Baso % (Auto) 0.5 % (.) 01/15/22 15:00 Neut # (Auto) 5.6 x10E3/uL (1.8-7.7) 01/15/22 15:00 Lymph # (Auto) 1.0 x10E3/uL (1.00-4.8) 01/15/22 15:00 [place] # (Auto) 0.4 x10E3/uL (0.0-0.8) 01/15/22 15:00 [...] <Electronically signed by Gagan Shahid DO> 01/15/22 6846 [facility] Work Phone: 1(749) 967-682109-19-2022 Evaluation note* Encounter Date Diagnosis Assessment Notes [...] Blood glucose levels above improved. According to [employer] cgm download 12/05/2021- 2: Average glucose 119. [...] hypertension material was printed on diony. Nov, terminal system operator current use of insulin (ICD-10 - Z79.4) Nov, Hyperlipidemia (ICD-10 - E78.5) High cholesterol material was printed 06/2021 ldl 48- on statin. Nov, BMI 27.0-27.9,adult (ICD-10 - Z68.27) Eating healthy: tips to make it easier material was printed 22 pound weight loss from last visit, continue with weight loss efforts [employer] Other [id number] Miscellaneous Notes* Telephone Encounter - Vee Day - 10/20/2021 9:42 AM EDT New CBC order. 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 BMI 28.0-28.9,adult BPH associated with nocturia Cholelithiasis Controlled diabetes mellitus with diabetic polyneuropathy, with long-term current use of insulin Diabetic retinopathy Elevated serum immunoglobulin free light chains GERD (gastroesophageal reflux disease) IBS (irritable bowel syndrome) Lumbar spondylosis MGUS (monoclonal gammopathy of unknown significance) Mixed hyperlipidemia Nausea Obesi (more content not included)...[facility] HospitalComment on above: Result Comment: Electronically Signed By: FRANKIE LEMUS, Gagan Bal\Date and Time Signed: 10/17/21 12:19 [id number] Evaluation note* Encounter Date Diagnosis Assessment Notes [...] Blood glucose levels above improved. According to [employer] cgm download 07/04/2021-07/17/2021 : Average glucose 146. [...] hypertension material was printed on [employer]iony. Jun, terminal system operator current use of insulin (ICD-10 - Z79.4) Jun, BMI 30.0-30.9,adult (ICD-10 - Z68.30) Eating healthy: tips to make it easier material was printed see above Jun, Bradycardia (ICD-10 - R00.1) asymptomatic- f/u with cardiology has upcoming apt. If symptomatic i.e. light headed notify sooner [employer] Other 03-21-2022 Evaluation note* Encounter Date Diagnosis Assessment Notes Treatment Notes Treatment Clinical Notes May, Gastro-esophageal reflux disease with esophagitis, without bleeding (ICD-10 - K21.00) [employer] Other 03-08-2022 Evaluation note* Encounter Date Diagnosis [...] advised him to continue to follow with Arel[facility] for DM management. He takes Lisinopril and I will continue it May, Vitamin D deficiency (ICD-10 - E55.9) His MBD parameters are within the goal. [employer] Other 02-21-2022 Evaluation note* Encounter Date Diagnosis Assessment Notes Treatment Notes Treatment Clinical Notes May, Diabetes mellitus with chronic kidney disease (ICD-10 - E11.22) [employer] Other 01-10-2022 Evaluation note* Encounter Date Diagnosis Assessment Notes Treatment Notes Treatment Clinical Notes Apr, Type 2 diabetes mellitus with hyperglycemia (ICD-10 - E11.65) [employer] Other 01-10-2022 Evaluation note* Encounter Date Diagnosis [...] above improved. According to morris cgm download 03/28/2021-04/10/19 22: Average glucose 167. [...] was also given rx assist [facility] [facility] if he does not qualify for BI/jardiance. Ozempic will increase to 1mg once weekly. Apr, Hyperlipidemia (ICD-10 - E78.5) High cholesterol material was printed 07/2020 ldl 64 trig 207- on statin. Apr, HTN (hypertension) (ICD-10 - I10) About hypertension material was printed on diony. Apr, FDC current use of insulin (ICD-10 - Z79.4) Apr, BMI 30.0-30.9,adult (ICD-10 - Z68.30) Eating healthy: tips to make it easier material was printed see above [employer] Other 11-16-2021 Evaluation note* Encounter Date Diagnosis [...] His MBD parameters are within the goal. [employer] Other 10-05-2021 Evaluation note* Encounter Date Diagnosis [...] above target with increased variability. According to [employer] cgm download 12/07/2020-01/03/2021: Average glucose 135. Above [...] hypertension material was printed on diony. 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 insulin (ICD-10 - Z79.4) Dec, BMI 31.0-31.9,adult (ICD-10 - Z68.31) Eating healthy: tips to make it easier material was printed 12 pound weight loss from last visit, continue with weight loss efforts Dec, Bradycardia (ICD-10 - R00.1) Pt asymptomatic. Notified blood bank specialist Dr. Velazquez. Pt has apt on Saturday next week. [facility] [employer] Other [place] complaint+Reason for visit Narrative* Chief Complaint 4 month follow up Reason for Visit BMI 28.0-28.9,adult Dietary counseling and surveillance HTN (hypertension) Chronic HFrEF (heart failure with reduced ejection fraction) Chronic kidney disease [id number] HTN (hypertension) Hypercholesterolemia Ischemic cardiomyopathy Pulmonary nodule Type 2 diabetes mellitus with hyperglycemia [facility] Work Phone: Evaluation + Plan note No data available for this section General Surgery [place] Evaluation noteNo [facility] [employer] Other Evalusjfme note* Diagnosis Monoclonal gammopathy- Primary Monoclonal paraproteinemia [facility] Diagnosis Onset Date Resolution Status Non-ST elevation myocardial infarction (NSTEMI), initial care episode acute [facility] Work Phone: Evaluation noteNo assessment information available [facility] Work Phone: Evaluation note* Diagnosis Onset Date Resolution Status BMI 26.0-26.9,adult acute Dietary counseling and surveillance acute DM2 (diabetes mellitus, type 2) acute HLD (hyperlipidemia) acute HTN (hypertension) acute [facility] Work Phone: Evaluation note* Diagnosis Onset Date Resolution Status BMI 26.0-26.9,adult acute Dietary counseling and surveillance acute DM2 (diabetes mellitus, type 2) acute HLD (hyperlipidemia) acute HTN (hypertension) acute Chronic HFrEF (heart failure with reduced ejection fraction) acute CKD (chronic kidney disease) stage 3, GFR 30-59 ml/min acute HLD (hyperlipidemia) acute [id number] acute Secondary hyperparathyroidism acute Type 2 diabetes 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 acute [facility] Work Phone: Evaluation note* Diagnosis Onset Date Resolution Status Dietary counseling and surveillance acute HTN (hypertension) acute Chronic HFrEF (heart failure with reduced ejection fraction) acute CKD (chronic kidney disease) stage 3, GFR 30-59 ml/min acute [id number] acute Secondary hyperparathyroidism acute Type 2 diabetes 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 acute Chronic HFrEF (heart failure with reduced ejection fraction) acute Chronic kidney disease acute HTN (hypertension) acute Hypercholesterolemia acute Ischemic cardiomyopathy acut e Pulmonary nodule acute Type 2 diabetes mellitus with hyperglycemia acute Medicare annual wellness visit, subsequent noneactive Screening PSA (prostate specific antigen) noneactive [facility] Work Phone: Evaluation note* Diagnosis Onset Date Resolution Status Chronic HFrEF (heart failure with reduced ejection fraction) acute Chronic kidney disease acute HTN (hypertension) acute Hypercholesterolemia acute Ischemic cardiomyopathy acut e Pulmonary nodule acute Type 2 diabetes mellitus with hyperglycemia acute Medicare annual wellness visit, subsequent noneactive Screening PSA (prostate specific antigen) noneactive BMI 28.0-28.9,adult acute Dietary counseling and surveillance acute HTN (hypertension) acute [facility] Work Phone: evaluation note* Diagnosis Onset Date Resolution Status BMI 28.0-28.9,adult acute Dietary counseling and surveillance acute HTN (hypertension) acute Chronic HFrEF (heart failure with reduced ejection fraction) acute Chronic kidney disease acute [id number] acute HTN (hypertension) acute Hypercholesterolemia acute Ischemic cardiomyopathy acut e Pulmonary nodule acute Type 2 diabetes mellitus with hyperglycemia acute [facility] Work Phone: Evaluation note* Diagnosis Onset Date Resolution Status BMI 28.0-28.9,adult acute Dietary counseling and surveillance acute HTN (hypertension) acute Chronic HFrEF (heart failure with reduced ejection fraction) acute Chronic kidney disease acute HTN (hypertension) acute Hypercholesterolemia acute Ischemic cardiomyopathy acut e Pulmonary nodule acute Type 2 diabetes mellitus with hyperglycemia acute Chronic HFrEF (heart failure with reduced ejection fraction) acute CKD (chronic kidney disease) stage 3, GFR 30-59 ml/min acute [id number] acute Secondary hyperparathyroidism acute Type 2 diabetes 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 acute [facility] Work Phone: Evaluation note* Diagnosis Onset Date Resolution Status Chronic HFrEF (heart failure with reduced ejection fraction) acute Chronic kidney disease acute HTN (hypertension) acute Hypercholesterolemia acute Ischemic cardiomyopathy acut e Pulmonary nodule acute Type 2 diabetes mellitus with hyperglycemia acute Chronic HFrEF (heart failure with reduced ejection fraction) acute CKD (chronic kidney disease) stage 3, GFR 30-59 ml/min acute [id number] acute Secondary hyperparathyroidism acute Type 2 diabetes 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 acute BMI 27.0-27.9,adult acute Dietary counseling and surveillance acute HTN (hypertension) acute [facility] Work Phone: Evaluation note* Diagnosis Xerosis cutis- Primary Other specified disease of sebaceous glands Diabetes 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, without long-term current use of insulin (CMS/HCC) Pain due to onychomycosis of toenails of both feet documented in this encounter [facility] HealthcareEvaluation note* Diagnosis Diabetes 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, without long-term current use of insulin (CMS/HCC)- Primary Pain due to onychomycosis of toenails of both feet documented in this encounter [facility] HealthcareHistory general Narrative - Reported* Type Description Date [...] 11-25-16 Hospitalization History HEART STENT PLACED 03-20 [facility] [employer] Other History general Narrative - ReportedNort [employer] Other History general Narrative - Reported* Type [...] 11-25-16 Hospitalization History HEART STENT PLACED 03-20 [employer] Other [employer] general Narrative - Reported* Type Description Date [...] 11-25-16 Hospitalization History HEART STENT PLACED 03-20 [employer] Other [employer] general Narrative - Reported* Type Description Date [...] 11-25-16 Hospitalization History HEART STENT PLACED 03-20 [employer] Other History general Narrative - Reported* Type [...] STENT PLACED 03-20 Hospitalization History SEE ABOVE [employer] Other History general Narrative - ReportedNortScoutmob Other Hiseqqv general Narrative - Reported* Type Description Date [...] STENT PLACED 03-20 Hospitalization History SEE ABOVE [employer] Other History general Narrative - Reported* Type [...] PLACED 03-20 18 Hospitalization History SEE ABOVE [employer] Other History general Narrative - Reported* Type [...] STENT PLACED 03-20 Hospitalization History SEE ABOVE [employer] Other History general Narrative - Reported* Type [...] History GGO and Pulmonary nodules Medical History [place] 01/21 Medical History Defibrilator 02/21 Surgical History [...] 03-20 Hospitalization History SEE ABOVE Hospitalization History [place] 01/21 [employer] Other Hospital Discharge instructions No data available for this section [facility] Discharge instructions Additional Instructions Monitor glucose levels as before. DISCHARGE INSTRUCTIONS FOR CARDIAC HOOK PULLER PHONE NUMBER OF YOUR PHYSICIAN: [phone] PROCEDURE: Heart Cath The following instructions have [...] cold, numb, blue or white, call the blood bank specialist immediately. 4. ACTIVITY: You are advised to [...] bottle, follow the instructions on the bottle. [facility] is not responsible for incorrect prescription information provided by the patient during their visit. Do not stop your medications without consulting your health care provider. Please take the list with you to your next doctor's appointment. [facility] Work Phone: Hospital Discharge instructionsAmbulatory Orders* Referral to Podiatry Location: None Selected [facility] Work Phone: Progress note No data available for this section General Surgery [place] Summary Purpose Family History Relationship Condition Age [...] Chief Complaint 4 Month Follow Up morris Fandeavor Reason for Visit BMI 26.0-26.9,adult Dietary counseling and surveillance DM2 (diabetes mellitus, type 2) HLD (hyperlipidemia) HTN (hypertension) Chief Complaint 4 Month Follow Up morris Fandeavor RENAL 6 month follow up Reason for Visit BMI 26.0-26.9,adult Dietary counseling and surveillance DM2 (diabetes mellitus, type 2) HLD (hyperlipidemia) HTN (hypertension) Chronic HFrEF (heart failure with reduced ejection fraction) CKD (chronic kidney disease) stage 3, GFR 30-59 ml/min HLD (hyperlipidemia) [id number] Secondary hyperparathyroidism Type 2 diabetes mellitus with diabetic chronic kidney disease 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 6 month follow up MEDICARE WELLNESS Reason for Visit Dietary counseling a nd surveillance HTN (hypertension) Chronic HFrEF (heart failure with reduced ejection fraction) CKD (chronic kidney disease) stage 3, GFR 30-59 ml/min [id number] Secondary hyperparathyroidism Type 2 diabetes mellitus with [...] 28.0-28.9,adult Dietary counseling and surveillance HTN (hypertension) Chief Complaint 4 month follow up RENAL 6 MONTH F/U Reason for Visit BMI 28.0-28.9,adult Dietary counseling and surveillance HTN (hypertension) Chronic HFrEF (heart failure with reduced ejection fraction) Chronic kidney disease HTN (hypertension) Hypercholesterolemia Ischemic cardiomyopathy Pulmonary nodule Type 2 diabetes mellitus with hyperglycemia Chronic HFrEF (heart failure with reduced ejection fraction) CKD (chronic kidney disease) stage 3, GFR 30-59 ml/min [id number] Secondary hyperparathyroidism Type 2 diabetes mellitus with diabetic chronic kidney disease Chief Complaint 4 month follow up RENAL 6 MONTH F/U NEED MMO CARD ./ 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 Reason for Visit Chronic HFrEF (heart failure with reduced ejection fraction) Chronic kidney disease HTN (hypertension) Hypercholesterolemia Ischemic cardiomyopathy Pulmonary nodule Type 2 diabetes mellitus with hyperglycemia Chronic HFrEF (heart failure with reduced ejection fraction) CKD (chronic kidney disease) stage 3, GFR 30-59 ml/min [id number] Secondary hyperparathyroidism Type 2 diabetes mellitus with diabetic chronic kidney disease BMI 27.0-27.9,adult Dietary counseling and surveillance HTN (hypertension) Chief Complaint Admit Date Amb Documentation February 18, 2024 9:11am CC Adult Risk Stratification February 172023 10:26am IP f/u [facility] chest pain-HIGH RISK Jan 9:29am 4 month f/u-HIGH RISK April 16, 2024 8:19am 3 month April 30, 2024 9 :21am Reason for Visit Admit Date Chronic HFrEF (heart failure with reduced ejection fraction) February 24, 2024 9:29am Chronic kidney disease February 23 9:29am HTN (hypertension) February 24, 2024 9:29am Hypercholesterolemia February 24, 2024 9:29am Ischemic cardiomyopathy February 23, 2 024 9:29am Pulmonary nodule February 24, 2024 9:29am Type 2 diabetes mellitus with hyperglyce dimple February 24, 2024 9:29am Controlled type 2 diabetes m khoa with diabetic peripheral angiopathy wit February 24, 2024 9:29am Chronic HFrEF (heart failure with reduced ejection fraction) April 16, 2024 8:19am Chronic kidney disease April 16 8:19am HTN (hypertension) April 16, 2024 8 :19am Hypercholesterolemia April 16, 2024 8:19am Ischemic cardiomyopathy April 16 8:19am Pulmonary nodule April 16, 2024 8 :19am Type 2 diabetes mellitus with hyperglyce dimple April 16, 2024 8:19am BMI 27.0-27.9,adult April 30, 2024 9 :21am Dietary counseling and surveillance [place] 2024 9:21am HTN (hypertension) April 30, 2024 9 :21am DM2 (diabetes mellitus, type 2) April 30, 2024 9:21am HLD (hyperlipidemia) April 30, 2024 9:21am Additional Source Comments (unrecognized sect ion and content) No Status Records FoundNo Status Records FoundNo Status Records FoundNo Status Records FoundNo Status Records FoundNo Status Records FoundNo Status Records Found INFORMATION SOURCE (unrecogn ized section and content) DATE CREATED AUTHOR 11/29/2018 [facility] DATE CREATED AUTHOR AUTHOR'S ORGANIZ ATION 10/20/2021 [facility] DATE CREATED AUTHOR AUTHOR'S ORGANIZ ATION 10/25/2021 [facility] DATE CREATED AUTHOR AUTHOR'S ORGANIZ ATION 08/13/2022 [facility] DATE CREATED AUTHOR AUTHOR'S ORGANIZ ATION 05/16/2023 [facility] DATE CREATED AUTHOR AUTHOR'S ORGANIZ ATION 04/09/2024 [facility] EPIC DATE CREATED AUTHOR AUTHOR'S ORGANIZ ATION 04/22/2024 [facility] REASON FOR VISIT (unrecogniz ed section and content) Reason Comments Lab Orders Reason Comments DM Foot Care Dm Nails Reason Comments DM Foot Care Dm nail care Care Team (unrecognized sect ion and content) Team Status: Active Member Role Status Dates Harley Crespo , Primary Care Provider Active Team Status: Active Member Role Status Dates Harley Crespo DO Primary Care Provider Active Start: February 12, 2024 Ronnell Lagos , Attending Provider Active S tart: February 12, 2024 Team Status: Active Member Role Status Dates Harley Crespo DO Primary Care Provide r, Attending Provider Active Start: February 12, 2024 Team Status: Active Member Role Status Dates Harley Crespo DO Primary Care Provider Active Start: February 18, 2024 Codi Easley CMA Attending Provider Active Start: February 18, 2024 Team Status: Active Member Role Status Anna Crespo DO Primary Care Provide r, Attending Provider Active Start: February 18, 2024 Team Status: Inactive Member Role Status Anna Crespo DO Primary Care Provide r, Attending Provider Active Start: February 24, 2024 End: February 24, 2024 Team Status: Inactive Member Role Status Anna Crespo DO Primary Care Provide r, Attending Provider Active Start: April 16, 2024 End: April 16, 2024 Team Status: Inactive Member Role Status Anna Crespo DO Primary Care Provider Active Start: April 30, 2024 End: April 30, 2024 Arlen Kwong APRN Attending Provider Active Start: April 30, 2024 End: April 30, 2024 Team Status: Active Member Role Status Anna Crespo DO Primary Care Provider Active Team Status: Inactive Member Role Status Anna Crespo DO Primary Care Provider Active Start: [...] Anna Crespo DO Primary Care Provider Active Start: December 30, 2023 Kingsley Good MD Attending Provider Active Start : December 30, 2023 Team Status: Inactive Member Role Status Dates Harley Crespo DO Primary Care Provider Active Start: January 07, 2024 End: January 07, 2024 Kingsley Good MD Attending Provider Active Start : January 07, 2024 End: January 07, 2024 Team Status: Active Member Role Status Dates [...] Anna Crespo DO Primary Care Provider Active Start: [...] Anna Crespo DO Primary Care Provider Active Start: June 24, 2023 Kingsley Good MD Attending Provider Active Start : June 24, 2023 Team Status: Inactive Member Role Status Dates Harley Crespo DO Primary Care Provider Active Start: July 02, 2023 End: July 02, 2023 Kingsley Good MD Attending Provider Active Start : July 02, 2023 End: July 02, 2023 Feather Drying Machine Operator Relationship Specialty Start Date End Date Harley Crespo DO [address] [place] [address] PCP - General Internal Medicine 07/18/18 Team Status: Inactive Member Role Status Dates Harley Crespo DO Primary Care Provider Active Gagan Shaihd DO Admit Provider, Attending Provider Active Team Status: Active Member Role Status Dates Harley Crespo DO Primary Care Provider Active Ryan Garrett APRN OPENSTACK CLOUD CONSULTING ARCHITECT-C Active Valerie Gallegos PA-C Active Arlen Kwong APRN Attending Provider Active Team Status: Inactive Member Role Status Dates Arlen Kwong APRN Attending Provider Active Start: March 12, 2023 End: March 12, 2023 Team Status: Inactive Member Role Status Dates Harley Crespo DO Primary Care Provider Active Start: March 12, 2023 End: March 12, 2023 Ryan Garrett APRN OPENSTACK CLOUD CONSULTING ARCHITECT-C Active Sta rt: March 12, 2023 End: March 12, 2023 Valerie Gallegos PA-C Active St art: March 12, 2023 End: March 12, 2023 Arlen Kwong APRN Attending Provider Active Start: March 12, 2023 End: March 12, 2023 Team Status: Inactive Member Role Status Dates Harley Crespo DO Attending Provider Active Sta rt: May 03, 2023 End: May 03, 2023 Team Status: Inactive Member Role Status Dates Harley Crespo DO Primary Care Provider Active Start: January 23, 2024 End: January 23, 2024 Arlen Kwong APRN Attending Provider Active Start: January 23, 2024 End: January 23, 2024 Feather Drying Machine Operator Relationship Specialty Start Date End Date Harley Crespo MD [address] [place] [id number] PCP - General Internal Medicine 11/07/23 Feather Drying Machine Operator Relationship Specialty Start Date End Date Harley Crespo MD [address] [place] [address] PCP - General Internal Medicine 11/07/23 Feather Drying Machine Operator Relationship Specialty Start Date End Date Harley Crespo MD [address] [place] [id number] PCP - General Internal Medicine 11/07/23 Team Status: Active Member Role Status Dates Harley Crespo DO Primary Care Provider Active Start: February 12, 2024 Ronnell Lagos , DO Attending Provider Active S tart: February 12, 2024 Team Status: Active Member Role Status Dates Harley Crespo , DO Primary Care Provide r, Attending Provider Active Start: February 12, 2024 Team Status: Active Member Role Status Dates Harley Crespo , DO Primary Care Provider Active Start: February 18, 2024 Codiblayne Easley CMA Attending Provider Active Start: February 18, 2024 Team Status: Active Member Role Status Dates Harley Crespo , DO Primary Care Provide r, Attending Provider Active Start: February 18, 2024 Team Status: Inactive Member Role Status Dates Harley Cherie , DO Primary Care Provide r, Attending Provider Active Start: February 24, 2024 End: February 24, 2024 Team Status: Inactive Member Role Status Dates Harley Crespo , DO Primary Care Provide r, Attending Provider Active Start: April 16, 2024 End: April 16, 2024 Team Status: Inactive Member Role Status Dates Harley Crespo , DO Primary Care Provider Active Start: April 30, 2024 End: April 30, 2024 Arlen Kwong APRN Attending Provider Active Start: April 30, 2024 End: April 30, 2024 Source Comments (unrecognize d section and content) In the event this informatio n is protected by the Federal Confidentiality of Alcohol and Drug Abuse Patient Records regulations: The Federal rules restrict any use of the information to criminally investigate or prosecute any alcohol or drug abuse patient.[facility] Goals (unrecognized section and content) Goals may [...] BE BASED ON THE PRIMARY CLINICAL RECORDS. [facility]. provides no warranty or guarantee of the accuracy or completeness of information in this document.
[2024-05-05 09:36] LABS: Creatinine Urine Random 61.15 mg/dL (20.00-300.00); Microalbum Creatinine Ratio Ur 104.6 mg/g (0.0-29.9); Microalbumin Urine Random 6.4 mg/dL (<=30.0)
[2024-05-05 09:43] LABS: Alanine Aminotransferase 17 U/L (16-63); Albumin Globulin Ratio 0.9; Albumin Level 3.7 g/dL (3.4-5.0); Alkaline Phosphatase 162 U/L (46-116); Anion Gap 13.1; Aspartate Amino Transferase 20 U/L (15-37); BUN Creatinine Ratio 12.6; Bilirubin Total 0.5 mg/dL (0.2-1.0); Calcium 9.2 mg/dL (8.5-10.1); Carbon Dioxide 28.5 mmol/L (21.0-32.0); Chloride 104 mmol/L (98-107); Cholesterol 117 mg/dL (<=200); Estimated GFR (African America 37 (>=60 mL/min/1.73m^2); Estimated GFR (Non-African Ame 30 (>=60 mL/min/1.73m^2); Globulin 4.3 g/dL; Glucose 220 mg/dL (74-106); HDL Cholesterol 39 mg/dL (40-60); Potassium 4.6 mmol/L (3.5-5.1); Sodium 141 mmol/L (136-145); Triglycerides 171 mg/dL (<=150); VLDL CHOLESTEROL 34.2 mg/dL
== END 2024-05-05 08:37 | disposition home or self-care (01) ==
LOC: LAB 08:45
PROVIDERS: PCP Internal Medicine
DX: E11.65 Type 2 diabetes mellitus with hyperglycemia (principal); Z79.4 Long term (current) use of insulin; E78.5 Hyperlipidemia, unspecified
CPT/HCPCS: 36415; 80053; 80061; 82043; 82570

== ENCOUNTER 2024-06-10 09:09 | Emergency (ER) | payer MEDICARE, OTHER, SELFPAY ==
[2024-06-10 09:13] VITALS: BP 132/80; PULSE 100; TEMP 36.8; O2SAT 97; BMI 26.9
[2024-06-10 09:40] LABS: Influenza Virus A Antigen Negative; Influenza Virus B Antigen Negative; Internal Control Within Normal Limits; SARS-CoV-2 Ag POSITIVE (NEGATIVE)
--- OUTSIDE RECORDS SUMMARY | 2024-06-10 09:52 | XMS_ITS | CCD ---
Author Organization [facility] Care Team Providers Care Poultry Cleaner Name Role Phone ELTAHAWY, EHAB A Admitting Unavailable ELTAHAWY, EHAB A Attending Unavailable HARLEY CRESPO Referring Unavailable HARLEY CRESPO Primary Care Unavailable ELTAHAWY, NETOAB A Surgeon Unavailable AL Procedure Practitioner Unavailab le ELTAHAWY, EHAB A Admitting Unavailable ELTAHAWJo, PINKY A Attending Unavailable HARLEY CRESPO Referring Unavailable HARLEY CRESPO Primary Care Unavailable Arlen Kwong Unavailable Kingsley Good Unavailable Shannon Escobar Unavailable HARLEY CRESPO Primary Care Physician Harley Crespo DO Primary Care Provider DO Harley Crespo Primary Care Provider [phone] JULY Kwong Attending Provider [phone] DO Gagan Shahid Admit Provider DO Gagan [...] Primary Care Provider JULY Kwong Attending Provider Harley Crespo MD Primary Care Provider KENNETH TAVERA Attending Unavailable KENNETH TAVERA Attending Unavailable KENNETH TAVERA Attending Unavailable ELTAHAWJo, PINKY Attending Unavailable KATHEMALATHA MEJIA Referring Unavailable HORANI, DEJUAN Admitting Unavailable SELLERS, ARAMIS Attending Unavailable MOUKARBEL, LUISITO Referring Unavailable HORANI, DEJUAN Admitting Unavailable NESTOR, HEIDY Attending Unavailable JENNI, KEVIN Referring Unavailable JENNI, KEVIN Referring Unavailable CRISTOPHER, EMEKA Referring Unavailable JENNI, KEVIN Referring Unavailable JENNI, KEVIN Referring Unavailable MOUKARBEL, LUISITO Referring Unavailable JENNI, KEVIN Referring Unavailable JENNI, KEVIN Attending Unavailable ELTAHAWY, PINKY Attending Unavailable JENNI, KEVIN Referring Unavailable JENNI, KEVIN Referring Unavailable JENNI, KEVIN Referring Unavailable JENNI, KEVIN Referring Unavailable JENNI, KEVIN Referring Unavailable CRISTOPHER, EMEKA Referring Unavailable CRISTOPHER, EMEKA Referring Unavailable JENNI, KEVIN Referring Unavailable AMERICO, BONAVENTURE Referring Unavailable AMERICO, BONAVENTURE Referring Unavailable JENNI, KEVIN Referring Unavailable JENNI, KEVIN Referring Unavailable JENNI, KEVIN Referring Unavailable JENNI, KEVIN Referring Unavailable CRISTOPHER, EMEKA Referring Unavailable CRISTOPHER, EMEKA Referring Unavailable CRISTOPHER, EMEKA Referring Unavailable HORANI, DEJUAN Referring Unavailable HORANI, DEJUAN Referring Unavailable YOST, YFN Referring Unavailable JENNI, KEVIN Referring Unavailable JENNI, KEVIN Referring Unavailable Ball Harley BRUMFIELD Primary Care Provider [phone] Lani LEMUS, Tamara Álvarez Attending Provider Tamara Amaro Attending Unavail able Tamara Amaro Admitting Unavail able Harley Crespo Primary Care Unavailable Allergies Allergy Classification Reported Allergen(s) Allergy Type Date of Onset Reaction(s) Facility (1 source) 70732,00; Translations: [Unknown] Propensity to adverse reactions (disorder) 02-10-20 [facility] Repository (2 sources) semaglutide; Translations: [semaglutide] Allergy to substance 05-28-19 Gastrointestinal Upset [facility] Comment on above: constipation Medications Current Medications Medication Drug Class(es) Dates [...] six hours as needed for pain HYDROcodone-acetaminophen ([place]) 5-325 MG tablet TAKE 1 TABLET BY MOUTH EVERY 4 TO 6 HOURS NEEDED FOR PAIN 08/14/2022 Active amLODIPine 10 mg oral tablet (20 sources) [...] Ordered Start: 06-22-2020 take 1 tablet by bhavik th once daily in the morning Aspirin 81 mg Tablet Active 81 MG PO Every morning June 21, 2020 11:00pm take 1 tablet [...] time. Active cholecalciferol 0.025 mg oral capsule (18 sources) Vitamin D Start: 07-02-19 take 1 capsule by mouth once daily in the morning Cholecalciferol (Vitamin D3) 25 mcg (1,000 unit) capsule Active 25 MCG PO Every morning July 01, 2023 11:00pm take 1 capsule [...] tablet (20 sources) P2Y12 Platelet Inhibitor Start: take 1 tablet by mouth once daily in the morning Clopidogrel 75 mg tablet Active 75 MG PO Every morning May 28, 2024 12:00am TAKE 1 TABLET BY MOUTH EVERY DAY Start: 05-17-2024 End: 05-28-2024 take 1 tablet by mouth once daily Clopidogrel 75 mg tablet Discontinued 0 .ROUTE .COMPLEX 90 May 17, 2024 6:29pm May 28, 2024 11:22am TAKE 1 TABLET BY MOUTH EVERY DAY Start: 10-17-2023 End: 05-17-2024 take 1 tablet by mouth once daily Clopidogrel 75 mg tablet Discontinued 75 MG PO Daily October 17, 2023 9:06am May 17, 2024 6:29pm Start: 06-18-2023 End: 10-17-2023 take 1 tablet [...] flash glucose sensor (FreeStyle Morris 2 Sensor) (3 sources) Start: 01-23-2024 flash glucose sensor (FreeStyle [...] U-100) 100 unit/mL (3 mL) insulin pen (2 sources) Start: 04-30-2024 Insulin Deglud ec (Tresiba Flextouch U-100) 100 unit/mL (3 mL) insulin pen Active 14 UNIT SUBCUT Every morning April 30, 2024 12:00am 3 ml insulin glargine 100 unt/ml pen injector (6 sources) Insulin Analog insulin glargine (Lantus SoloStar) 100 UNIT/ML pen Subcutaneous for 90 Active Humulin N (14 sources) Start: 09-07-2021 inject 15 [IU] by [...] oral tablet (20 sources) Nitrate Vasodilator Start: 05-28-19 take 1 tablet by mouth twice daily in the morning Isosorbide Mononitrate 60 mg tablet extended release 24 hr Active 60 MG PO Every morning May 28, 2024 12:00am TAKE 1 TABLET BY MOUTH TWICE A DAY FOR 30 DAYS Start: 05-08-2024 End: 05-28-2024 take 1 tablet by mouth twice daily Isosorbide Mononitrate 60 mg tablet extended release 24 hr Discontinued 0 .ROUTE .COMPLEX 180 May 08, 2024 4:15pm May 28, 2024 11:22am TAKE 1 TABLET BY MOUTH TWICE A DAY FOR 30 DAYS Start: 01-17-2022 End: 05-08-2024 take 1 tablet by mouth twice daily, then take 1 tablet by mouth every twenty-four hours Isosorbide Mononitrate 60 mg tablet extended release 24 hr Discontinued 60 MG PO Twice daily August 12, 2023 7:43am May 08, 2024 4:15pm Start: 06-22-2020 End: 01-17-2022 take 1 tablet [...] bid (titrate up to 40 units/day) Active 3 ml liraglutide 6 mg/ml pen injector (2 sources) GLP-1 Receptor Agonist Start: 05-28-19 inject 0.6 mg by subcutaneous injection once daily in the morning, then inject 1.8 mg by subcutaneous injection once daily Liraglutide (Victoza 3-Michelet) 0.6 mg/0.1 mL (18 mg/3 mL) pen injector Active 1.8 MG SUBCUT Every morning May 28, 2024 12:00am inject 0.6mg subcutaneously once daily x 7 days; then 1.2mg daily, not to exceed 1.8mg/day subcut Start: 04-30-2024 End: 05-28-2024 inject 0.6 mg by subcutaneous injection once daily, then inject 1.8 mg by subcutaneous injection once daily Liraglutide (Victoza 3-Michelet) 0.6 mg/0.1 mL (18 mg/3 mL) pen injector Discontinued 0 SUBCUT .COMPLEX April 30, 2024 12:00am May 28, 2024 11:22am inject 0.6mg subcutaneously once daily x 7 days; then 1.2mg daily, not to exceed 1.8mg/day subcut Liraglutide (Victoza 3-Michelet) 0.6 mg/0.1 mL (18 mg/3 mL) pen injector (1 source) Start: 04-30-2024 inject 0.6 mg by subcutaneous injection once daily, then inject 1.8 mg by subcutaneous injection once daily Liraglutide (Victoza 3-Michelet) 0.6 mg/0.1 mL (18 mg/3 mL) pen injector Active 0 SUBCUT .COMPLEX April 30, 2024 12:00am inject 0.6mg subcutaneously once daily x 7 days; then 1.2mg daily, not to exceed 1.8mg/day subcut lovastatin 40 mg oral tablet (20 sources) [...] 20 mg by mouth daily at bedtime. Multivitamin preparation (20 sources) Start: take 1 tablet by mouth once daily Multivitamin Active 1 TAB PO Daily January 14, 2022 11:00pm Start: 01-15-2022 take 1 tablet by bhavik th once daily Multivitamin Active 1 TAB PO Daily January 15, 2022 12:00am take 1 tablet by bhavik th once daily Multi Vitamin - 1 tablet Orally Once a day Active Multivitamin Tablet (2 sources) Start: 01-15-2022 take 1 tablet by mouth once daily Multivitamin Tablet Active 1 TAB PO Daily January 14, 2022 11:00pm nitroglycerin 0.4 mg sublingual tablet (20 sources) Nitrate Vasodilator Start: 06-18-2023 Nitroglycerin (Nitrostat) 0.4 mg tablet, sublingual Active 0.4 MG SUBLINGUAL Every 5 minutes x 3 doses as needed for chest pain June 17, 2023 11:00pm nitroglycerin (N itrostat) [...] tablet (20 sources) Proton Pump Inhibitor Start: 05-28-19 take 1 tablet by mouth once daily at breakfast Pantoprazole 40 mg tablet,delayed release (DR/EC) Active 40 MG PO Every morning May 28, 2024 12:00am TAKE 1 TABLET BY MOUTH DAILY ON AN EMPTY STOMACH FOLLOWED BY BREAKFAST 30 MINUTES AFTER FOR 90 DAYS Start: 12-09-2023 End: 05-28-2024 take 1 tablet by mouth once daily at breakfast Pantoprazole 40 mg tablet,delayed release (DR/EC) Discontinued 0 .ROUTE .COMPLEX 90 December 09, 2023 7:47pm May 28, 2024 11:22am TAKE 1 TABLET BY MOUTH DAILY ON AN EMPTY STOMACH FOLLOWED BY BREAKFAST 30 MINUTES AFTER FOR 90 DAYS Start: 07-10-2021 End: 12-09-2023 take 1 tablet by mouth once daily Pantoprazole 40 mg tablet,delayed release (DR/EC) Discontinued 40 MG PO Daily October 16, 2023 11:00pm December 09, 2023 7:47pm 12 hr ranolazine 500 mg extended release oral tablet (2 sources) Anti-anginal Start: 02-24-2024 take 1 tablet by mouth twice daily Ranolazine 500 mg tablet extended release 12 hr Active 500 MG PO Twice daily February 24, 2024 12:00am rosuvastatin calcium 40 mg oral tablet (20 sources) HMG-CoA Reductase Inhibitor Start: 06-18-2023 take 1 tablet by mouth once daily at bedtime Rosuvastatin 40 mg tablet Active 40 MG PO Daily at bedtime June 17, 2023 11:00pm take 1 tablet by bhavik th every twenty-four hours Rosuvastatin Calcium 40 MG 1 tablet Oral ly Once a day Active Ozempic (15 sources) Start: 09-29-2021 Ozempic qWeek, Refill(s) 0 Start Date: 09/29/21 Status: Ordered Start: 07-10-2021 End: 06-18-2023 Semaglutide (Ozempic) 0.25 m g or 0.5 mg(2 mg/1.5 mL) Pen Injector Discontinued 0.5 MG SUBCUT every week July 09, 2021 11:00pm June 18, 2023 10:03am Saturday spironolactone 25 mg oral tablet (6 sources) Aldosterone Antagonist Start: 10-17-2023 take 1 tablet by mouth once daily in the morning Spironolactone 25 mg tablet Active 25 MG PO Every morning October 16, 2023 11:00pm thiamine 100 mg oral tablet (20 sources) Start: 08-12-2023 take 1 tablet by mouth every other day Thiamine Hcl (Vitamin B1) 100 mg tablet Active 100 MG PO every other day August 12, 2023 7:45am Start: 07-02-2023 End: [...] Drug Class(es) Dates Sig (Normalized) Sig (Original) ALPRAZolam 0.5 mg oral tablet (20 sources) Benzodiazepine Start: 06-22-2020 End: 02-09-2024 take 1 tablet by mouth three times daily Alprazolam 0.5 mg tablet Discontinued 0.5 MG PO Three times daily August 06, 2023 1:14pm February 09, 2024 8:29pm Comment on above: Take 0.5 mg by mouth at bedtime as needed. amoxicillin 875 mg / clavulanate 125 mg oral tablet (11 sources) Penicillin-class Antibacterial Start: 06-24-2020 End: 07-11-2020 [...] with meals. dapagliflozin 10 mg oral tablet (16 sources) Sodium-Glucose Cotransporter 2 Inhibitor Start: 06-18-19 End: 06-18-19 take 1 tablet by mouth once daily Dapagliflozin Propanediol (Farxiga) 10 mg tablet Discontinued 10 MG PO Daily June 17, 2023 11:00pm June 18, 2023 10:58am take 1 tablet by bhavik th every twenty-four hours Farxiga 10 MG 1 tablet Orally Once a day Not-Taking/PRN docusate sodium 100 mg oral capsule (20 sources) Start: 06-18-2023 End: 08-12-2023 take 1 capsule by mouth once daily Docusate Sodium 100 mg capsule Discontinued 100 MG PO Daily June 17, 2023 11:00pm August 12, 2023 7:42am take 1 capsule by [facility] every twenty-four hours Colace 100 MG 1 capsule as needed Orally Once a day Active Colace Active empagliflozin 10 mg oral tablet (20 sources) Sodium-Glucose Cotransporter 2 Inhibitor Start: 06-22-2020 End: 04-21-2024 take 1 tablet by mouth once daily Empagliflozin 10 mg tablet Discontinued 10 MG PO Daily June 17, 2023 11:00pm January 23, 2024 9:02am empagliflozin (J MESERETDIANCE) 25 mg tablet q [...] 6:52pm Start: 09-07-2021 take 1 tablet by [facility] twice daily famotidine 20 mg Tab 20 [...] Insulin) 100 unit/mL (3 mL) Insulin Pen (11 sources) Start: End: inject 5 [IU] by subcutaneous injection three [...] Flexpen) 100 unit/mL (3 mL) insulin pen (19 sources) Start: 01-07-2024 End: 04-30-2024 inject 5 [...] insulin, regular, human 100 unt/ml injectable solution (18 sources) Insulin Start: 07-11-2020 End: 01-15-2022 Insulin [...] mg oral tablet (20 sources) Start: 01-15-2022 End: 05-28-2024 take 1 tablet by mouth once daily Loratadine 10 mg Tablet Discontinued 10 MG PO Daily January 14, 2022 11:00pm May 28, 2024 11:19am loratadine 10 mg cap Take by mouth. 0 Active Comment on above: Take by mouth. 24 hr metoprolol succinate 50 mg extended release oral tablet (20 sources) beta-Adrenergic Jason Start: 04-30-2024 take 1 tablet by mouth once daily Metoprolol Succinate 100 mg tablet extended release 24 hr Active 100 MG PO Daily April 30, 2024 9:46am Start: 04-30-2024 End: 05-28-2024 take 1 tablet by mouth once daily Metoprolol Succinate 50 mg tablet extended release 24 hr Discontinued 50 MG PO Daily April 30, 2024 9:47am May 28, 2024 11:19am Start: 04-30-2024 End: 04-30-2024 Metoprolol Succinate 50 mg t ablet extended release 24 hr Discontinued 150 MG PO Daily April 30, 2024 12:00am April 30, 2024 9:48am Start: 01-23-2024 End: 04-30-2024 Metoprolol Succinate 100 mg tablet extended release 24 hr Active 150 MG PO Every morning April 30, 2024 9:46am Start: 01-23-2024 take 150 mg by mouth [...] 1 tablet Orally Once a day Active multivit-minerals/folic acid (ONE-A-DAY MEN VITACRAVES ORAL) (1 [...] day Not-Taking/PRN predniSONE 20 mg oral tablet (11 sources) Start: 06-24-2020 End: 07-11-2020 take 2 [...] mg / valsartan 26 mg oral tablet (16 sources) Angiotensin 2 Receptor Jason Start: 06-18-2023 End: 06-18-2023 take 1 tablet by mouth twice daily Sacubitril-Valsartan (Entresto) 24-26 mg tablet Discontinued 1 TAB PO Twice daily June 17, 2023 11:00pm June 18, 2023 10:59am take 1 tablet by bhavik th every twelve hours Entresto 24-26 MG 1 tablet Orally Twice a day Not-Taking/PRN Semaglutide (9 sources) Start: 06-18-2023 End: 06-18-2023 inject 1 [...] 2023 11:15am ticagrelor 90 mg oral tablet (11 sources) Start: 07-13-2020 End: 07-10-2021 take 1 tablet by mouth twice daily Ticagrelor (Brilinta) 90 mg Tablet Discontinued 90 MG PO Twice daily 180 90 July 12, 2020 11:00pm July 10, 2021 8:59am triamcinolone acetonide 0.54169 mg/mg topical ointment (1 source) Corticosteroid triamcinolone (KENALOG) 0.025 % ointment Apply to affected area twice daily. 0 Active Comment on above: Apply to affected ar ea twice daily. VITAMIN B COMPLEX ORAL (1 source) VITAMIN B COMPLE X ORAL Take by mouth every other day. 0 Active Comment on above: Take by mouth every other day. vitamin b12 1 mg oral tablet (20 sources) Vitamin B12 Start: 06-18-2023 End: 07-02-2023 [...] Onset: 2 07-12-2020 Chronic Comment on above: 12/2022, 9 total in lifetime Administrative/social admission (20 sources) Financial problem; Translations: [Other problems related to housing and economic circumstances] Onset: 1 Resolved: 2 Episodic Anxiety disorders (7 sources) Generalized anxiety disorder; Translations: [Generalized anxiety [...] [CAD (coronary artery disease) of bypass graft] Chronic Complications of surgical procedures or medical care (1 source) Hypotension due to drugs Episodi c Conduction disorders (10 sources) Atrioventricular block, complete; Translations: [Presence of [...] artery disease; Translations: [Atherosclerotic heart disease of [place] coronary artery without angina pectoris] Onset: 3 09-07-2021 Chronic Comment on above: CABG x 5 - 1995PCI/s tent x 6 CABG x 5 - 1995PCI/s tent x 8 Deficiency and other anemia (20 sources) Anemia [...] mellitus without complications] Onset: 2 09-07-2021 Chronic Disorders of lipid metabolism (20 sources) Hyperlipidemia; [...] Onset: 9 09-07-2021 Chronic Nonspecific chest pain (14 sources) Chest pain; Translations: [Chest pain, unspecified] Onset: 2 07-11-2020 Episodic Nutritional deficiencies (20 sources) Vitamin D deficiency; Translations: [Vitamin D deficiency, unspecified] Onset: 1 Resolved: 2 Chronic Other aftercare (20 sources) Long-term current use of insulin; Translations: [detention (current) use of insulin] Episodic Other aftercare (11 sources) detention (current) use of insulin; Translations: [director long term care current use of insulin Z79.4] Onset: 1 [...] proteins] 07-11-2020 Episodic Other lower respiratory disease (11 sources) Hypoxia; Translations: [Hypoxemia] 06-22-2020 Episodic Other lower respiratory disease (16 sources) Other nonspecific abnormal finding of lung field; Translations: [Ground glass opacity present on imaging of lung] Onset: 2 Episodic Other lower respiratory disease (13 sources) Solitary pulmonary nodule; Translations: [Solitary pulmonary nodule] Onset: 2 Episodic Other lower respiratory disease (19 sources) Nodule of lung; Translations: [Solitary pulmonary nodule] 07-22-2023 Episodic Comment on above: CT: 8mm RML nodule - T: 6mm RML nodule - T: 7mm RML nodule - T: 6.5mm RML [...] Episodic Other nutritional; endocrine; and metabolic disorders (11 sources) Overweight in adulthood with body mass index of 25 or more but less than 30; Translations: [Body mass index (BMI) 26.0-26.9, adult] 06-18-2023 Episodic Other nutritional; endocrine; and metabolic disorders (4 sources) Body mass index (BMI) 28.0-28.9, adult; Translations: [Body Mass Index 28.0-28.9, adult] 10-17-2023 Episodic Other screening for suspected conditions (not mental disorders or infectious disease) (20 sources) Increased immunoglobulin; Translations: [Patient encounter status] [...] 06-06-2021 Coronary atherosclerosis and other heart disease (2 sources) Presence of aortocoronary bypass graft; Translations: [Presence of coronary angioplasty implant and graft] Onset: 04-03-2022 Episodic Diabetes mellitus with complications (20 sources) [...] Onset: 09-29-2021 Episodic Other aftercare (1 source) detention (current) use of aspirin; Translations: [NURSING HOME CURRENT USE OF ASPIRIN] Onset: 04-03-2022 Episodic Other aftercare (1 source) Other long term acute care registered nurse (current) drug therapy; Translations: [OTH COMPOSITE TECHNICIAN CURRENT DRUG THERAPY] Onset: 04-03-2022 Episodic Other [...] Facility Cholesterol in LDL Calc [Mas s/Vol]on 05-05-2024 Cholesterol in LDL [Mass/Vol] Cholesterol in LDL [Mass/volume] in Serum or Plasma by calculation [facility] Comment on above: <100 mg/dl [id number] 0-129 mg/dl NEAR OR ABOVE [id number] mg/dl BORDERLINE [id number] mg/dl HIGH>190 mg/dl VERY HIGH Cholesterol in VLDL Calc [Ma ss/Vol]on 05-05-2024 Cholesterol in VLDL [Mass/Vol] Cholesterol in VLDL [Mass/volume] in Serum or Plasma by calculation [facility] Estimated glomerular filtrat ion rate (GFR) non- Americanon 05-05-2024 GFR/1.73 sq M.predicted among non-blacks MDRD (S/P/Bld) [Vol rate/Area] Estimated glomerular filtration rate (GFR) non- Low >=60 mL/min/1.7 3m 2 [facility] Globulin Calc (S) [Mass/Vol] on 05-05-2024 Globulin (S) [Mass/Vol] Serum globulin measurement by calculation (mass/volume) [facility] Laboratory - Chemistry and C hemistry - challengeon 05-05-2024 Albumin [Mass/Vol] 3.7 g/dL 3.4-5.0 [facility] ALP [Catalytic activity/Vol] 162 U/L High 46-116 [facility] ALT [Catalytic activity/Vol] 17 U/L 16-63 [facility] AST [Catalytic activity/Vol] 20 U/L 15-37 [facility] Bilirubin [Mass/Vol] 0.5 mg/dL 0.2-1.0 [facility] Calcium [Mass/Vol] 9.2 mg/dL 8.5-10.1 [facility] Chloride [Moles/Vol] 104 mmol/L 98-107 [facility] Cholesterol [Mass/Vol] 117 mg/dL <=200 [facility] Cholesterol in HDL [Mass/Vol] 39 mg/dL Low 40-60 [facility] Comment on above: > or =60 mg/dl - LOW CARDIOVASCULAR RISK<40 mg/dl - HIGH CARDIOVASCULAR RISK CO2 [Moles/Vol] 28.5 mmol/L 21.0-32.0 [facility] Creatinine [Mass/Vol] 2.15 mg/dL High 0.70-1.30 [facility] GFR/1.73 sq M.predicted MDRD (S/P/Bld) [Vol rate/Area] 37 mL/min/{1.73_m2} Low >=60 mL/min/1.7 3m 2 [facility] Glucose [Mass/Vol] 220 mg/dL High 74-106 [facility] Potassium [Moles/Vol] 4.6 mmol/L 3.5-5.1 [facility] Protein [Mass/Vol] 8.0 g/dL 6.4-8.2 [facility] Sodium [Moles/Vol] 141 mmol/L 136-145 [facility] Triglyceride [Mass/Vol] 171 mg/dL High <=150 [facility] Urea nitrogen [Mass/Vol] 27.0 mg/dL High 7.0-18.0 [facility] Urea nitrogen/Creatinine [Mass ratio] 12.6 mg/mg [facility] Microalbumin [Mass/volume] i n Urineon 05-05-2024 Albumin DL <= 20 mg/L (U) [Mass/Vol] Microalbumin [Mass/volume] in Urine <=30.0 [facility] No Panel Informationon 05-05 Urine Random Creatinine 61.15 mg/dL 20.00-300. 00 [facility] Serum or plasma albumin/glob ulin mass ratioon 05-05-2024 Albumin/Globulin [Mass ratio] Serum or plasma albumin/globulin mass ratio [facility] Serum or plasma anion gap de terminationon 05-05-2024 Anion gap [Moles/Vol] Serum or plasma an ion gap determination [facility] Serum or plasma total choles terol/high density lipoprotein (HDL) cholesterol mass yulia 05-05-2024 Cholesterol.total/Cho lesterol in HDL [Mass ratio] Serum or plasma total cholesterol/high density lipoprotein (HDL) cholesterol mass rat [facility] Comment on above: 3.3 - 4.4 LOW RISK4. 4 - 7.1 AVERAGE RISK7.1 - 11.0 MODERATE RISK>11.0 HIGH RISK Urine microalbumin/creatinin e mass ratioon 05-05-2024 Albumin/Creatinine DL <= 20 mg/L (U) [Mass ratio] Urine microalbumin/creatinine mass ratio High 0.0-29.9 [facility] Comment on above: NO MICROALBUMINURIA 0-29 MG/GCLINICAL MICROALBUMINURIA 30-300 MG/GMACROALBUMINURIA >300 MG/G HbA1c HPLC (Bld) [Mass fract ion]on 04-30-2024 HbA1c (Bld) [Mass fraction] Hemoglobin A1c/Hemoglobin.total in Blood by HPLC [facility] No Panel Informationon 04-30 Bedside Glucose 158 [facility] Office Visiton 03-10-2024 Follow-up visit [id number] Lani Lizama 1950 M Date Provider Department Center 03/10/2024 Belle-KEVIN ARTEAGA MARCELINO Armas Family History Problem Relation Age of Onset Heart attack Mother Other Father Other Brother Heart attack Maternal Grandmother Heart attack Maternal Grandfather Family Status - Relation Status Age at Mother Father Brother Maternal Grandmother Maternal Grandfather Level of Service:11190 AL OFFICE/OUTPATIENT NEW LOW MDM 30 MINUTES Normal [facility] 30on 02-14-2024 30 The patient is Moder ately Stable - Low risk of patient condition declining or worsening The patient's goals for the shift include get better The clinical goals for the shift include VSS Normal [facility] 30 The patient is Moder ately Stable [...] and behaviors that affect risk of falls [place] fall precautions as indicated by assessment Educate [...] maintained or improved Outcome: Progressing Flowsheets (Taken 02/14/202450) Care Plan - Patient's Chronic Conditions and [...] overall improvement and discharge Normal [facility] BASIC METABOLIC PANELon 11-1 Anion gap [Moles/Vol] 9 mmol/L Normal 7-20 [facility] Comment on above: Performed By: #### L [id number] #### [facility] ([facility]) [address] [place] [address] Calcium [Mass/Vol] 8.4 mg/dL Low 8.6-10.3 [facility] Comment on above: Performed By: #### L [id number] #### [facility] ([facility]) [address] [place] [address] Chloride [Moles/Vol] 109 mmol/L High 98-107 [facility] Comment on above: Performed By: #### L [id number] #### [facility] [address] [place] [address] CO2 [Moles/Vol] 25 mmol/L Normal 21-31 [facility] Comment on above: Performed By: #### L [id number] #### [facility] ([facility]) [address] [place] [address] Creatinine [Mass/Vol] 1.65 mg/dL High 0.70-1.30 [facility] Comment on above: Performed By: #### L [id number] #### [facility] SERVICES) [address] [place] [address] GLOMERULAR FILTRATION RATE ML/MIN/1.73 SQ M.PREDICTED 43.8 mL/min/1.73m*2 Low >60.0 [facility] Comment on above: Result Comment: The [facility]???s estimated glomerular filtration rate (eGFR) will no [...] group of individuals. Performed By: #### L [id number] #### [facility] ([facility]) [address] [place] [address] Glucose [Mass/Vol] 118 mg/dL High 70-100 [facility] Comment on above: Performed By: #### L [id number] #### [facility] ([facility]) [address] [place] [address] Potassium [Moles/Vol] 4.3 mmol/L Normal 3.5-5.1 [facility] Comment on above: Performed By: #### L [id number] #### [facility] ([facility]) [address] [place] [address] Sodium [Moles/Vol] 139 mmol/L Normal 136-145 [facility] Comment on above: Performed By: #### L [id number] #### [facility] ([facility]) [address] [place] [address] Urea nitrogen [Mass/Vol] 19 mg/dL Normal 7-25 [facility] Comment on above: Performed By: #### L [id number] #### [facility] ([facility]) [address] [place] [address] UREA NITROGEN/CREATININE (MASS RATIO) IN SER/PLAS 11.5 Normal [facility] Comment on above: Performed By: #### L [id number] #### [facility] ([facility]) [address] [place] [address] CBCon 02-14-2024 Erythrocyte distribution width (RBC) [Ratio] 13.8 % Normal 11.5-15.0 [facility] Comment on above: Performed By: #### L [id number] #### [facility] ([facility]) [address] [place] [address] ERYTHROCYTE MEAN CORPUSCULAR HEMOGLOBIN CONCENTRATION (G/DL) BY AUTOMATED 32.9 g/dL Normal 32.0-35.0 [facility] Comment on above: Performed By: #### L [id number] #### [facility] [address] [place] [address] Hematocrit (Bld) [Volume fraction] 38.0 % Low 39.0-55.0 [facility] Comment on above: Performed By: #### L [id number] #### [facility] ([facility]) [address] [place] [address] Hemoglobin (Bld) [Mass/Vol] 12.5 g/dL Low 13.0-17.0 [facility] Comment on above: Performed By: #### L [id number] #### [facility] ([facility]) [address] [place] [address] MCH (RBC) [Entitic mass] 30.1 pg Normal 27.0-33.0 [facility] Comment on above: Performed By: #### L [id number] #### [facility] ([facility]) [address] [place] [address] MCV (RBC) [Entitic vol] 91.6 fL Normal 82.0-98.0 [facility] Comment on above: Performed By: #### L [id number] #### [facility] ([facility]) [address] [place] [address] PLATELETS (10*3/UL) IN BLOOD AUTOMATED COUNT 176 10*3/uL Normal 150-400 [facility] Comment on above: Performed By: #### L [id number] #### [facility] ([facility]) [address] [place] [address] RBC (Bld) [#/Vol] 4.15 10*6/uL Low 4.20-5.70 [facility] Comment on above: Performed By: #### L [id number] #### [facility] ([facility]) [address] [place] [address] WBC (Bld) [#/Vol] 6.88 10*3/uL Normal 4.00-10.60 [facility] Comment on above: Performed By: #### L [id number] #### [facility] ([facility]) [address] [place] [address] NURSNOTEon 02-14-2024 NURSNOTE Discharge instructio n given , patient verbalized understanding, no follow up questions asked Normal [facility] POCT GLUCOSE METER UNSOLICIT ED RESULTSon 02-14-2024 Glucose [Mass/Vol] 231 mg/dL High 70-105 [facility] Comment on above: Order Comment: Waive d Testing in the ED is performed under the ED CLIA certificate #[id number]. Result Comment: [email or web address] Performed By: #### L [id number] #### [facility] ([facility]) [address] [place] [address] Glucose [Mass/Vol] 128 mg/dL High 70-105 [facility] Comment on above: Order Comment: Waive d Testing in the ED is performed under the ED CLIA certificate #[id number]. Result Comment: [email or web address] Performed By: #### L [id number] #### [facility] ([facility]) [address] [place] [address] TROPONIN Ion 02-14-2024 Troponin I.cardiac [Mass/Vol] 1.08 ng/mL Critically high 0.00-0.04 [facility] Comment on above: Result Comment: M-AL EVIOUS CRITICAL RESULT Previous result verified on 02/14/2024 0605 on specimen/case [id number] called with component Troponin I for procedure Troponin I with value 1.69 ng/mL. Performed By: #### L [id number] #### [facility] ([facility]) [address] [place] [address] Troponin I.cardiac [Mass/Vol] 1.69 ng/mL Critically high 0.00-0.04 [facility] Comment on above: Performed By: #### L [id number] #### [facility] ([facility]) [address] [place] [address] 30on 02-13-2024 30 The patient is Moder ately Stable - Low risk of patient condition declining or worsening The patient's goals for the shift include get better The clinical goals for the shift include VSS Normal [facility] 30 The patient is Moder ately Stable [...] and behaviors that affect risk of falls [place] fall precautions as indicated by assessment Educate [...] and behaviors that affect risk of falls [place] fall precautions as indicated by assessment Educate [...] overall improvement and discharge Normal [facility] ANTI-XA (HEPARIN LEVEL)on HEPARIN UNFRACTIONATED (U/ML) IN PPP BY CHROMOGENIC METHOD 0.85 IU/mL High 0.3-0.7 [facility] Comment on above: Order Comment: Check anti-Xa level every 6 hours while on heparin infusion, or per protocol. Result Comment: Page roxaban and Apixaban will interfere with the anti Xa assay used to monitor UFH and LMWH. Performed By: #### L [id number] #### [facility] ([facility]) [address] [place] [address] APTTon 02-13-2024 ACTIVATED PARTIAL THROMBOPLASTIN TIME IN PPP BY COAGULATION ASSAY 93.5 Seconds High 25.0-35.0 [facility] Comment on above: Order Comment: Basel ine aPTT before initiating heparin infusion. Result Comment: Clin ical significance of the APTT is questionable in the presence of heparin. Performed By: #### L [id number] #### [facility] [address] [place] [address] B-TYPE NATRIURETIC PEPTIDEon 02-13-2024 Natriuretic peptide B (Bld) [Mass/Vol] 693 pg/mL High 0-100 [facility] Comment on above: Performed By: #### L [id number] #### [facility] ([facility]) [address] [place] [address] BASIC METABOLIC PANELon 01-30 Anion gap [Moles/Vol] 10 mmol/L Normal 7-20 [facility] Comment on above: Performed By: #### L [id number] #### [facility] ([facility]) [address] [place] [address] Calcium [Mass/Vol] 8.9 mg/dL Normal 8.6-10.3 [facility] Comment on above: Performed By: #### L [id number] #### [facility] ([facility]) [address] [place] [address] Chloride [Moles/Vol] 107 mmol/L Normal 98-107 [facility] Comment on above: Performed By: #### L [id number] #### [facility] ([facility]) [address] [place] [address] CO2 [Moles/Vol] 25 mmol/L Normal 21-31 [facility] Comment on above: Performed By: #### L [id number] #### [facility]) [address] [place] [address] Creatinine [Mass/Vol] 1.61 mg/dL High 0.70-1.30 [facility] Comment on above: Performed By: #### L [id number] #### [facility]) [address] [place] [address] GLOMERULAR FILTRATION RATE ML/MIN/1.73 SQ M.PREDICTED 45.2 mL/min/1.73m*2 Low >60.0 [facility] Comment on above: Result Comment: The [facility]???s estimated glomerular filtration rate (eGFR) will no [...] individuals. Performed By: #### L [id number] #### [facility] ([facility]) [address] [place] [address] Glucose [Mass/Vol] 174 mg/dL High 70-100 [facility] Comment on above: Performed By: #### L [id number] #### [facility] ([facility]) [address] [place] [address] Potassium [Moles/Vol] 4.3 mmol/L Normal 3.5-5.1 [facility] Comment on above: Performed By: #### L [id number] #### [facility] ([facility]) [address] [place] [address] Sodium [Moles/Vol] 138 mmol/L Normal 136-145 [facility] Comment on above: Performed By: #### L [id number] #### [facility] ([facility]) [address] [place] [address] Urea nitrogen [Mass/Vol] 20 mg/dL Normal 7-25 [facility] Comment on above: Performed By: #### L [id number] #### [facility] ([facility]) [address] [place] [address] UREA NITROGEN/CREATININE (MASS RATIO) IN SER/PLAS 12.4 Normal [facility] Comment on above: Performed By: #### L [id number] #### [facility] ([facility]) [address] [place] [address] CBC WITH AUTO DIFFERENTIALon 02-13-2024 Basophils (Bld) [#/Vol] 0.05 10*3/uL Normal 0.00-0.20 [facility] Comment on above: Performed By: #### L [id number] #### [facility] ([facility]) [address] [place] [address] Basophils/100 WBC (Bld) 0.7 % Normal 0.0-1.0 [facility] Comment on above: Performed By: #### L [id number] #### [facility] ([facility]) [address] [place] [address] Eosinophils (Bld) [#/Vol] 0.13 10*3/uL Normal 0.00-0.50 [facility] Comment on above: Performed By: #### L [id number] #### [facility] ([facility]) [address] [place] [address] Eosinophils/100 WBC (Bld) 1.8 % Normal 0.0-6.0 [facility] Comment on above: Performed By: #### L [id number] #### [facility] ([facility]) [address] [place] [address] Erythrocyte distribution width (RBC) [Ratio] 13.4 % Normal 11.5-15.0 [facility] Comment on above: Performed By: #### L [id number] #### [facility] ([facility]) [address] [place] [address] ERYTHROCYTE MEAN CORPUSCULAR HEMOGLOBIN CONCENTRATION (G/DL) BY AUTOMATED 34.1 g/dL Normal 32.0-35.0 [facility] Comment on above: Performed By: #### L [id number] #### [facility] ([facility]) [address] [place] [address] Hematocrit (Bld) [Volume fraction] 40.2 % Normal 39.0-55.0 [facility] Comment on above: Performed By: #### L [id number] #### [facility] ([facility]) [address] [place] [address] Hemoglobin (Bld) [Mass/Vol] 13.7 g/dL Normal 13.0-17.0 [facility] Comment on above: Performed By: #### L [id number] #### [facility] [address] [place] [address] Immature granulocytes (Bld) [#/Vol] 0.03 10*3/uL Normal 0.00-0.20 [facility] Comment on above: Performed By: #### L [id number] #### [facility] ([facility]) [address] [place] [address] Immature granulocytes/100 WBC (Bld) 0.4 % Normal 0.0-1.0 [facility] Comment on above: Performed By: #### L [id number] #### [facility] ([facility]) [address] [place] [address] Lymphocytes (Bld) [#/Vol] 1.64 10*3/uL Normal 1.20-4.00 [facility] Comment on above: Performed By: #### L [id number] #### [facility] ([facility]) [address] [place] [address] Lymphocytes/100 WBC (Bld) 22.3 % Normal 20.0-45.0 [facility] Comment on above: Performed By: #### L [id number] #### [facility]) [address] [place] [address] MCH (RBC) [Entitic mass] 30.2 pg Normal 27.0-33.0 [facility] Comment on above: Performed By: #### L [id number] #### [facility] [address] [place] [address] MCV (RBC) [Entitic vol] 88.5 fL Normal 82.0-98.0 [facility] Comment on above: Performed By: #### L [id number] #### [facility] ([facility]) [address] [place] [address] Monocytes (Bld) [#/Vol] 0.69 10*3/uL Normal 0.10-1.00 [facility] Comment on above: Performed By: #### L [id number] #### [facility] ([facility]) [address] [place] [address] Monocytes/100 WBC (Bld) 9.4 % Normal 5.0-12.0 [facility] Comment on above: Performed By: #### L [id number] #### [facility] ([facility]) [address] [place] [address] Neutrophils (Bld) [#/Vol] 4.80 10*3/uL Normal 1.60-7.60 [facility] Comment on above: Performed By: #### L [id number] #### [facility] ([facility]) [address] [place] [address] Neutrophils/100 WBC (Bld) 65.4 % Normal 40.0-72.0 [facility] Comment on above: Performed By: #### L [id number] #### [facility] ([facility]) [address] [place] [address] NRBC (PER 100 WBCS) BY AUTOMATED COUNT 0.0 % Normal 0 [facility] Comment on above: Performed By: #### L [id number] #### [facility] ([facility]) [address] [place] [address] PLATELETS (10*3/UL) IN BLOOD AUTOMATED COUNT 202 10*3/uL Normal 150-400 [facility] Comment on above: Performed By: #### L [id number] #### [facility] ([facility]) [address] [place] [address] RBC (Bld) [#/Vol] 4.54 10*6/uL Normal 4.20-5.70 [facility] Comment on above: Performed By: #### L [id number] #### [facility] ([facility]) [address] [address] WBC (Bld) [#/Vol] 7.34 10*3/uL Normal 4.00-10.60 [facility] Comment on above: Performed By: #### L [id number] #### [facility]) [address] [place] [address] CONSULTon 02-13-2024 CONSULT ------ -- Attestation signed [...] -- Nephrology Consult Note Patient : Lani Lizmaa; 73 y.o. Location: [id number]/3123-01 Attending: Aramis Sellers MD Admit Date: 02/13/2024 [...] III who presented as a transferred from [facility] with NSTEMI. Cardiology planning for cath later [...] 51 (H) 08/31 (more content not included)... Normal [facility] CONSULT ------ -- Attestation signed by Yfn [...] III who presented as a transferred from [facility] with NSTEMI. The patient complained of retrosternal [...] and nitro drip. When he arrived to [facility] he was chest pain-free. Troponin this morning [...] Coronary artery disease, Diabetes mellitus ([facility]), Hyperlipidemia, Hypertension, PVD (peripheral vascular disease) ([facility]), and Third degree heart block ([facility]). Surgical History He has a past surgical [...] PAIN pantoprazole (Pr (more content not included)... [facility] HPon 02-13-2024 HP ------ -- Attestation signed by Parul Pena [...] were addressed and answered. Jenny Fernandez MD Wired Music Operator - PGY6 [facility] MAGNESIUMon 02-13-2024 Magnesium [Mass/Vol] 2.0 mg/dL Normal 1.9-2.7 [facility] Comment on above: Performed By: #### L [id number] #### [facility] ([facility]) [address] [place] [address] POCT GLUCOSE METER UNSOLICIT ED RESULTSon 02-13-2024 Glucose [Mass/Vol] 200 mg/dL High 70-105 [facility] Comment on above: Order Comment: Waive d Testing in the ED is performed under the ED CLIA certificate #[id number]. Result Comment: roberto macias Performed By: #### L [id number] #### [facility] ([facility]) [address] [place] [address] Glucose [Mass/Vol] 187 mg/dL High 70-105 [facility] Comment on above: Order Comment: Waive d Testing in the ED is performed under the ED CLIA certificate #[id number]. Result Comment: [email or web address] Performed By: #### L [id number] #### [facility] ([facility]) [address] [place] [address] Glucose [Mass/Vol] 141 mg/dL High 70-105 [facility] Comment on above: Order Comment: Waive d Testing in the ED is performed under the ED CLIA certificate #[id number]. Result Comment: [email or web address] Performed By: #### L [id number] #### [facility] ([facility]) [address] [place] [address] Glucose [Mass/Vol] 166 mg/dL High 70-105 [facility] Comment on above: Order Comment: Waive d Testing in the ED is performed under the ED CLIA certificate #[id number]. Result Comment: [email or web address] Performed By: #### L [id number] #### [facility] ([facility]) [address] [place] [address] PROTIME-INRon 02-13-2024 INR IN PPP BY COAGULATION ASSAY 1.17 High 0.90-1.10 [facility] Comment on above: Result Comment: ACCC P [...] RANGE. CHEST 1995;[id number]. Performed By: #### L [id number] #### [facility] [address] [place] [address] PROTHROMBIN TIME (PT) IN PPP BY COAGULATION ASSAY 14.9 Seconds High 12.3-14.8 [facility] Comment on above: Performed By: #### L [id number] #### [facility] [address] [place] [address] TROPONIN Ion 02-13-2024 Troponin I.cardiac [Mass/Vol] 2.02 ng/mL Critically high 0.00-0.04 [facility] Comment on above: Result Comment: M-AL EVIOUS CRITICAL RESULT Previous result verified on 02/13/2024 0606 on specimen/case [id number] called with component Troponin I for procedure Troponin I with value 3.34 ng/mL. Performed By: #### L [id number] #### [facility] [address] [place] [address] Troponin I.cardiac [Mass/Vol] 2.10 ng/mL Critically high 0.00-0.04 [facility] Comment on above: Result Comment: M-AL EVIOUS CRITICAL RESULT Previous result verified on 02/13/2024 0606 on specimen/case [id number] called with component Troponin I for procedure Troponin I with value 3.34 ng/mL. Performed By: #### L [id number] #### [facility] [address] [place] [address] Troponin I.cardiac [Mass/Vol] 3.34 ng/mL Critically high 0.00-0.04 [facility] Comment on above: Result Comment: ADILIA BRYANT INITIAL CRITICAL HIGH; RESPUN AND RETESTED Performed By: #### L [id number] #### [facility] (BEAKER) [address] [place] [address] Activated partial thrombopla stin time (aPTT) in platelet poor plasma by coagulation aon 02-12-2024 aPTT Coag (PPP) [Time] Activated partial thromboplastin time (aPTT) in platelet poor plasma by coagulation a 22.3-36.2 [facility] Basophils Auto (Bld) [#/Vol] on 02-12-2024 Basophils (Bld) [#/Vol] Automated basophil count 0.0-0.1 [facility] Basophils/100 WBC Auto (Bld) on 02-12-2024 Basophils/100 WBC (Bld) Automated basophil % 0.2-2.0 [facility] Eosinophils/100 WBC Auto (Bl d)on 02-12-2024 Eosinophils/100 WBC (Bld) Automated eosinophil % 0.9-7.0 [facility] Erythrocyte distribution wid th Auto (RBC) [Ratio]on 02-12-2024 Erythrocyte distribution width (RBC) [Ratio] Erythrocyte distribution width [Ratio] by Automated count 11.0-15.0 [facility] Estimated glomerular filtrat ion rate (GFR) non- Americanon 02-12-2024 GFR/1.73 sq M.predicted among non-blacks MDRD (S/P/Bld) [Vol rate/Area] Estimated glomerular filtration rate (GFR) non- Low >=60 mL/min/1.7 3m 2 [facility] Hematocrit Auto (Bld) [Volum e fraction]on 02-12-2024 Hematocrit (Bld) [Volume fraction] Hematocrit [Volume Fraction] of Blood by Automated count 42.0-54.0 [facility] Hemoglobin [Mass/volume] in Bloodon 02-12-2024 Hemoglobin (Bld) [Mass/Vol] Hemoglobin [Mass/volume] in Blood 14.0-18.0 [facility] INR in Platelet poor plasma by Coagulation assayon 02-12-2024 INR Coag (PPP) [Relative time] INR in Platelet poor plasma by Coagulation assay [facility] Comment on above: DESIRED INR:2.0-3.0 CONDITIONS NOT LISTED BELOW2.5-3.5 FOR PROSTHETIC HEART VALVE REPLACEMENT2.5-3.5 RECURRENT THROMBOSIS Laboratory - Chemistry and C hemistry - challengeon 02-12-2024 Calcium [Mass/Vol] 9.4 mg/dL 8.5-10.1 [facility] Chloride [Moles/Vol] 106 mmol/L 98-107 [facility] CO2 [Moles/Vol] 22.9 mmol/L 21.0-32.0 [facility] Creatinine [Mass/Vol] 1.97 mg/dL High 0.70-1.30 [facility] GFR/1.73 sq M.predicted MDRD (S/P/Bld) [Vol rate/Area] 41 mL/min/{1.73_m2} Low >=60 mL/min/1.7 3m 2 [facility] Glucose [Mass/Vol] 236 mg/dL High 74-106 [facility] Potassium [Moles/Vol] 3.9 mmol/L 3.5-5.1 [facility] Comment on above: SPECIMEN SLIGHTLY HE MOLYZED Sodium [Moles/Vol] 141 mmol/L 136-145 [facility] Urea nitrogen [Mass/Vol] 21.0 mg/dL High 7.0-18.0 [facility] Urea nitrogen/Creatinine [Mass ratio] 10.7 mg/mg [facility] Laboratory - Hematology and Cell countson 02-12-2024 Immature granulocytes/100 WBC (Bld) 0.5 % 0.0-0.5 [facility] Leukocytes [#/volume] correc soraya for nucleated erythrocytes in Blood by Automated counon 02-12-2024 WBC corrected for nucl RBC Auto (Bld) [#/Vol] Leukocytes [#/volume] corrected for nucleated erythrocytes in Blood by Automated coun 4.0-11.0 [facility] Lymphocytes Auto (Bld) [#/Vo l]on 02-12-2024 Lymphocytes (Bld) [#/Vol] Lymphocytes [#/volume] in Blood by Automated count 1.2-3.8 [facility] Lymphocytes/100 WBC Auto (Bl d)on 02-12-2024 Lymphocytes/100 WBC (Bld) Lymphocytes/100 leukocytes in Blood by Automated count 20.5-60.0 [facility] MCH Auto (RBC) [Entitic mass ]on 02-12-2024 MCH (RBC) [Entitic mass] MCH [Entitic mass] by Automated count 25.9-34.0 [facility] MCHC Auto (RBC) [Mass/Vol]on 02-12-2024 MCHC (RBC) [Mass/Vol] MCHC [Mass/volume] by Automated count 29.9-35.2 [facility] MCV Auto (RBC) [Entitic vol] on 02-12-2024 MCV (RBC) [Entitic vol] MCV [Entitic volume] by Automated count 80.0-94.0 [facility] Monocytes Auto (Bld) [#/Vol] on 02-12-2024 Monocytes (Bld) [#/Vol] Automated blood monocyte count 0.3-0.8 [facility] Monocytes/100 WBC Auto (Bld) on 02-12-2024 Monocytes/100 WBC (Bld) Automated monocyte % 1.7-12.0 [facility] Neutrophils Auto (Bld) [#/Vo l]on 02-12-2024 Neutrophils (Bld) [#/Vol] Neutrophils [#/volume] in Blood by Automated count 1.4-6.5 [facility] Neutrophils/100 WBC Auto (Bl d)on 02-12-2024 Neutrophils/100 WBC (Bld) Automated neutrophil % 43.0-75.0 [facility] No Panel Informationon 02-11 Troponin I High Sensitivity 85.0 pg/mL Critically high 4.0-76.1 [facility] Comment on above: RESULTS CALLED TO [...] Eosinophils # (Auto) 0.2 10 3/uL 0.0-0.7 [facility] Immature Granulocyte # (Auto) 0.04 10 3/uL High 0.00-0.03 [facility] Platelet mean volume Auto (B ld) [Entitic vol]on 02-12-2024 Platelet mean volume (Bld) [Entitic vol] Platelet mean volume [Entitic volume] in Blood by Automated count 9.5-13.5 [facility] Platelets Auto (Bld) [#/Vol] on 02-12-2024 Platelets (Bld) [#/Vol] Platelets [#/volume] in Blood by Automated count 150-450 [facility] Prothrombin time (PT)on 01-30 PT Coag (PPP) [Time] Prothrombin time (PT) 9.0- 11.6 [facility] RBC Auto (Bld) [#/Vol]on RBC (Bld) [#/Vol] Erythrocytes [#/volu me] in Blood by Automated count 4.70-6.10 [facility] Serum or plasma anion gap de terminationon 02-12-2024 Anion gap [Moles/Vol] Serum or plasma an ion gap determination [facility] Erythrocyte distribution wid th Auto (RBC) [Ratio]on 12-30-2023 Erythrocyte distribution width (RBC) [Ratio] 14.3 % 11.0-15.0 [facility] Estimated glomerular filtrat ion rate (GFR) non- Americanon 12-30-2023 GFR/1.73 sq M.predicted among non-blacks MDRD (S/P/Bld) [Vol rate/Area] 31 mL/min/{1.73_m2} Low >=60 [facility] Hematocrit Auto (Bld) [Volum e fraction]on 12-30-2023 Hematocrit (Bld) [Volume fraction] 45.2 % 42.0-54.0 [facility] Hemoglobin [Mass/volume] in Bloodon 12-30-2023 Hemoglobin (Bld) [Mass/Vol] 14.8 g/dL 14.0-18.0 [facility] Laboratory - Chemistry and C hemistry - challengeon 12-30-2023 Albumin [Mass/Vol] 3.8 g/dL 3.4-5.0 [facility] Calcium [Mass/Vol] 9.9 mg/dL 8.5-10.1 [facility] Chloride [Moles/Vol] 103 mmol/L 98-107 [facility] CO2 [Moles/Vol] 27.9 mmol/L 21.0-32.0 [facility] Creatinine [Mass/Vol] 2.10 mg/dL High 0.70-1.30 [facility] GFR/1.73 sq M.predicted MDRD (S/P/Bld) [Vol rate/Area] 38 mL/min/{1.73_m2} Low >=60 [facility] Glucose [Mass/Vol] 207 mg/dL High 74-106 [facility] Magnesium [Mass/Vol] 2.1 mg/dL 1.8-2.4 [facility] Potassium [Moles/Vol] 4.7 mmol/L 3.5-5.1 [facility] Sodium [Moles/Vol] 137 mmol/L 136-145 [facility] Urate [Mass/Vol] 4.1 mg/dL 3.5-7.2 [facility] Urea nitrogen [Mass/Vol] 29.0 mg/dL High 7.0-18.0 [facility] Urea nitrogen/Creatinine [Mass ratio] 13.8 mg/mg [facility] Laboratory - Urinalysison Protein (U) [Mass/Vol] 26.9 mg/dL High <=11.9 [facility] Leukocytes [#/volume] correc soraya for nucleated erythrocytes in Blood by Automated counon 12-30-2023 WBC corrected for nucl RBC Auto (Bld) [#/Vol] 8.7 10 3/uL 4.0-11.0 [facility] MCH Auto (RBC) [Entitic mass ]on 12-30-2023 MCH (RBC) [Entitic mass] 30.0 pg 25.9-34.0 [facility] MCHC Auto (RBC) [Mass/Vol]on 12-30-2023 MCHC (RBC) [Mass/Vol] 32.7 g/dL 29.9-35.2 [facility] MCV Auto (RBC) [Entitic vol] on 12-30-2023 MCV (RBC) [Entitic vol] 91.7 fL 80.0-94.0 [facility] No Panel Informationon 12-29 25-Hydroxy Vitamin D Total 47.5 ng/mL [facility] Comment on above: <20 ng/mL Vit D defi cient20-<30 ng/mL Vit D [id number] ng/mL Vit D sufficient>100 ng/mL Potential Toxicity Parathyroid Hormone (Intact) 27 pg/mL 15-65 [facility] Comment on above: Performed at: [facility] [place] [id number] Director: Kwaku Park PhD, Phone: [phone] Phosphorus Level 3.7 mg/dL 2.6-4.7 [facility] Urine Random Creatinine 85.11 mg/dL 20.00-300. 00 [facility] Platelet mean volume Auto (B ld) [Entitic vol]on 12-30-2023 Platelet mean volume (Bld) [Entitic vol] 9.3 fL Low 9.5-13.5 [facility] Platelets Auto (Bld) [#/Vol] on 12-30-2023 Platelets (Bld) [#/Vol] 193 10 3/uL 150-450 [facility] RBC Auto (Bld) [#/Vol]on RBC (Bld) [#/Vol] 4.93 10 6/uL 4.70-6.10 [facility] Serum or plasma anion gap de terminationon 12-30-2023 Anion gap [Moles/Vol] 10.8 mmol/L [facility] Urine protein/creatinine rat ioon 12-30-2023 Protein/Creatinine (U) [Ratio] 0.32 [facility] HbA1c HPLC (Bld) [Mass fract ion]on 10-17-2023 HbA1c (Bld) [Mass fraction] 7.5 % [facility] No Panel Informationon 10-16 Bedside Glucose 108 [facility] Office Visiton 10-07-2023 Follow-up visit [id number] Lani Lizama 1950 M Date Provider Department Center 10/07/2023 [id number]-PINKY [employer]ISH[employer] D[facility] CARD [facility] Family History Problem Relation Age of Onset Heart attack Mother Other Father Other Brother Heart attack Maternal Grandmother Heart attack Maternal Grandfather Family Status - Relation Status Age at Mother Father Brother Maternal Grandmother Maternal Grandfather Level of Service:44063 AL OFFICE/OUTPATIENT ESTABLISHED LOW MDM 20 MIN Normal [facility] 30on 09-28-2023 30 The patient is Moder [...] on the way home. Normal [facility] BASIC METABOLIC PANELon 06- Anion gap [Moles/Vol] 13 mmol/L Normal 7-20 [facility] Comment on above: Performed By: #### L [id number] #### [facility] ([facility]AKER) [address] [place] [address] Calcium [Mass/Vol] 8.8 mg/dL Normal 8.6-10.3 [facility] Comment on above: Performed By: #### L [id number] #### [facility] ([facility]ER) [address] [place] [address] Chloride [Moles/Vol] 104 mmol/L Normal 98-107 [facility] Comment on above: Performed By: #### L [id number] #### [facility] [address] [place] [address] CO2 [Moles/Vol] 24 mmol/L Normal 21-31 [facility] Comment on above: Performed By: #### L [id number] #### [facility] ([facility]) [address] [place] [address] Creatinine [Mass/Vol] 1.59 mg/dL High 0.70-1.30 [facility] Comment on above: Performed By: #### L [id number] #### [facility] ([facility]) [address] [place] [address] GLOMERULAR FILTRATION RATE ML/MIN/1.73 SQ M.PREDICTED 46.1 mL/min/1.73m*2 Low >60.0 [facility] Comment on above: Result Comment: The [facility]???s estimated glomerular filtration rate (eGFR) will no [...] group of individuals. Performed By: #### L [id number] #### [facility] ([facility]) [address] [place] [address] Glucose [Mass/Vol] 188 mg/dL High 70-100 [facility] Comment on above: Performed By: #### L [id number] #### [facility] ([facility]) [address] [place] [address] Potassium [Moles/Vol] 4.1 mmol/L Normal 3.5-5.1 [facility] Comment on above: Performed By: #### L [id number] #### [facility] ([facility]) [address] [place] [address] Sodium [Moles/Vol] 137 mmol/L Normal 136-145 [facility] Comment on above: Performed By: #### L [id number] #### [facility] [address] [place] [address] Urea nitrogen [Mass/Vol] 26 mg/dL High 7-25 [facility] Comment on above: Performed By: #### L [id number] #### [facility] ([facility]) [address] [place] [address] UREA NITROGEN/CREATININE (MASS RATIO) IN SER/PLAS 16.4 Normal [facility] Comment on above: Performed By: #### L [id number] #### [facility] ([facility]) [address] [place] [address] CBCon 09-28-2023 Erythrocyte distribution width (RBC) [Ratio] 14.2 % Normal 11.5-15.0 [facility] Comment on above: Performed By: #### L [id number] #### [facility] ([facility]) [address] [place] [address] ERYTHROCYTE MEAN CORPUSCULAR HEMOGLOBIN CONCENTRATION (G/DL) BY AUTOMATED 33.2 g/dL Normal 32.0-35.0 [facility] Comment on above: Performed By: #### L [id number] #### [facility] ([facility]) [address] [place] [address] Hematocrit (Bld) [Volume fraction] 43.4 % Normal 39.0-55.0 [facility] Comment on above: Performed By: #### L [id number] #### [facility] [address] [place] [address] Hemoglobin (Bld) [Mass/Vol] 14.4 g/dL Normal 13.0-17.0 [facility] Comment on above: Performed By: #### L [id number] #### [facility] [address] [place] [address] MCH (RBC) [Entitic mass] 28.4 pg Normal 27.0-33.0 [facility] Comment on above: Performed By: #### L [id number] #### [facility] ([facility]) [address] [place] [address] MCV (RBC) [Entitic vol] 85.6 fL Normal 82.0-98.0 [facility] Comment on above: Performed By: #### L [id number] #### [facility] ([facility]) [address] [place] [address] PLATELETS (10*3/UL) IN BLOOD AUTOMATED COUNT 159 10*3/uL Normal 150-400 [facility] Comment on above: Performed By: #### L [id number] #### [facility] ([facility]) [address] [place] [address] RBC (Bld) [#/Vol] 5.07 10*6/uL Normal 4.20-5.70 [facility] Comment on above: Performed By: #### L [id number] #### [facility] ([facility]) [address] [place] [address] WBC (Bld) [#/Vol] 7.88 10*3/uL Normal 4.00-10.60 [facility] Comment on above: Performed By: #### L [id number] #### [facility] ([facility]) [address] [place] [address] POCT GLUCOSE METER UNSOLICIT ED RESULTSon 09-28-2023 Glucose [Mass/Vol] 176 mg/dL High 70-105 [facility] Comment on above: Order Comment: Waive d Testing in the ED is performed under the ED CLIA certificate #[id number]. Result Comment: [email or web address] Performed By: #### L [id number] #### [facility] ([facility]) [address] [place] [address] 30on 09-27-2023 30 Problem: Pain - Adul [...] stable VS, cardiac cath Normal [facility] 30 Daily Case Managemen t Update Multidisciplinary rounds have been completed. Barriers to Discharge: Patient is a direct admitted from [facility], due chest pain and elevated troponin. [email or web address] most recent Cardiology consulted and are planning [...] Consult Orders (From admission, onward) Start Ordered 09/26/23 171 Inpatient consult to Cardiology Once Specialty: Cardiology Provider: (Not yet assigned) Question Answer Comment Consulting Group CARDIOLOGY TEAM Reason for Consult? [email or web address] Level of Consultation Consultation and Management 09/26/23 171 Normal [facility] 30 The patient is Moder ately Unstable [...] or improved Outcome: Progressing Normal [facility] ANTI-XA (HEPARIN LEVEL)on HEPARIN UNFRACTIONATED (U/ML) IN PPP BY CHROMOGENIC METHOD 0.47 IU/mL Normal 0.3-0.7 [facility] Comment on above: Order Comment: Check anti-Xa level every 6 hours while on heparin infusion, or per protocol. Result Comment: Page roxaban and Apixaban will interfere with the anti Xa assay used to monitor UFH and LMWH. Performed By: #### L [id number] #### [facility] ([facility]) [address] [place] [address] HEPARIN UNFRACTIONATED (U/ML) IN PPP BY CHROMOGENIC METHOD 0.55 IU/mL Normal 0.3-0.7 [facility] Comment on above: Order Comment: Check anti-Xa level every 6 hours while on heparin infusion, or per protocol. Result Comment: Page roxaban and Apixaban will interfere with the anti Xa assay used to monitor UFH and LMWH. Performed By: #### L [id number] #### [facility] [address] [place] [address] BASIC METABOLIC PANELon 08-31 Anion gap [Moles/Vol] 16 mmol/L Normal 7-20 [facility] Comment on above: Performed By: #### L [id number] #### [facility] [address] [place] [address] Calcium [Mass/Vol] 9.2 mg/dL Normal 8.6-10.3 [facility] Comment on above: Performed By: #### L [id number] #### [facility] ([facility]AK[facility]) [address] [place] [address] Chloride [Moles/Vol] 105 mmol/L Normal 98-107 [facility] Comment on above: Performed By: #### L [id number] #### [facility] ([facility]AK[facility]) [address] [place] [address] CO2 [Moles/Vol] 23 mmol/L Normal 21-31 [facility] Comment on above: Performed By: #### L [id number] #### [facility] ([facility]) [address] [place] [address] Creatinine [Mass/Vol] 1.56 mg/dL High 0.70-1.30 [facility] Comment on above: Performed By: #### L [id number] #### [facility] ([facility]) [address] [place] [address] GLOMERULAR FILTRATION RATE ML/MIN/1.73 SQ M.PREDICTED 47.2 mL/min/1.73m*2 Low >60.0 [facility] Comment on above: Result Comment: The [facility]???s estimated glomerular filtration rate (eGFR) will no [...] individuals. Performed By: #### L [id number] #### [facility] ([facility]) [address] [place] [address] Glucose [Mass/Vol] 166 mg/dL High 70-100 [facility] Comment on above: Performed By: #### L [id number] #### [facility] ([facility]) [address] [place] [address] Potassium [Moles/Vol] 4.3 mmol/L Normal 3.5-5.1 [facility] Comment on above: Performed By: #### L [id number] #### [facility] ([facility]) [address] [place] [address] Sodium [Moles/Vol] 140 mmol/L Normal 136-145 [facility] Comment on above: Performed By: #### L [id number] #### [facility] ([facility]) [address] [place] [address] Urea nitrogen [Mass/Vol] 26 mg/dL High 7-25 [facility] Comment on above: Performed By: #### L [id number] #### [facility] ([facility]) [address] [facility] [place] [address] UREA NITROGEN/CREATININE (MASS RATIO) IN SER/PLAS 16.7 Normal [facility] Comment on above: Performed By: #### L [id number] #### [facility] ([facility]) [address] [place] [address] CBCon 09-27-2023 Erythrocyte distribution width (RBC) [Ratio] 14.4 % Normal 11.5-15.0 [facility] Comment on above: Performed By: #### L [id number] #### [facility] ([facility]) [address] [place] [address] ERYTHROCYTE MEAN CORPUSCULAR HEMOGLOBIN CONCENTRATION (G/DL) BY AUTOMATED 33.1 g/dL Normal 32.0-35.0 [facility] Comment on above: Performed By: #### L [id number] #### [facility] ([facility]) [address] [place] [address] Hematocrit (Bld) [Volume fraction] 46.2 % Normal 39.0-55.0 [facility] Comment on above: Performed By: #### L [id number] #### [facility] ([facility]) [address] [place] [address] Hemoglobin (Bld) [Mass/Vol] 15.3 g/dL Normal 13.0-17.0 [facility] Comment on above: Performed By: #### L [id number] #### [facility] ([facility]) [address] [place] [address] MCH (RBC) [Entitic mass] 28.7 pg Normal 27.0-33.0 [facility] Comment on above: Performed By: #### L [id number] #### [facility] ([facility]) [address] [place] [address] MCV (RBC) [Entitic vol] 86.7 fL Normal 82.0-98.0 [facility] Comment on above: Performed By: #### L [id number] #### [facility] ([facility]) [address] [place] [address] PLATELETS (10*3/UL) IN BLOOD AUTOMATED COUNT 158 10*3/uL Normal 150-400 [facility] Comment on above: Performed By: #### L [id number] #### [facility] ([facility]) [address] [place] [address] RBC (Bld) [#/Vol] 5.33 10*6/uL Normal 4.20-5.70 [facility] Comment on above: Performed By: #### L [id number] #### [facility] ([facility]) [address] [place] [address] WBC (Bld) [#/Vol] 7.95 10*3/uL Normal 4.00-10.60 [facility] Comment on above: Performed By: #### L [id number] #### [facility] ([facility]) [address] [place] [address] CONSULTon 09-27-2023 CONSULT Cardiology Consult N rabia [...] with elevated troponin consistent with non-ST elevation [place]. 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 Pain was described as centrally-located and pressure-like, and unrelieved by Nitroglycerin x3. Patient started on nitroglycerin drip which provided relief. Initial high sensitivity troponin was unremarkable, but repeat was elevated (2962). He was started on heparin and transferred to [facility] for further evaluation. We were consulted [...] (more content not included)... Normal [facility] HPon 09-27-2023 HP H&P reviewed. The jaron mark was interviewed and examined. 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 Procedure's details, risks and benefits discussed with the patient and he's agreeable. [facility] LIPID PANELon 09-27-2023 CHOL/HDL 3.5 mg/dL [facility] Comment on above: Performed By: #### L [id number] #### [facility] ([facility]AKER) [address] [place] [address] Cholesterol [Mass/Vol] 108 mg/dL Low 120-200 [facility] Comment on above: Performed By: #### L [id number] #### [facility] ([facility]) [address] [place] [address] Magnesium [Mass/Vol] 148 mg/dL Normal 40-149 [facility] Comment on above: Result Comment: TRIG LYCERIDE REFERENCE RANGE: 20 YEARS AND OLDER CARDIOVASCULAR RISK LESS THAN 150 mg/dL LOW RISK 150 TO 199 mg/dL BORDERLINE RISK 200 mg/dL AND GREATER HIGH RISK Performed By: #### L [id number] #### [facility] ([facility]) [address] [place] [address] Magnesium [Mass/Vol] 47 mg/dL Normal 0-160 [facility] Comment on above: Performed By: #### L [id number] #### [facility] ([facility]) [address] [place] [address] Magnesium [Mass/Vol] 31 mg/dL Normal 23-92 [facility] Comment on above: Performed By: #### L [id number] #### [facility] ([facility]) [address] [place] [address] NON HDL CHOL. (LDL+VLDL) 77 Normal [facility] Comment on above: Performed By: #### L [id number] #### [facility] ([facility]) [address] [place] [address] TOTAL VLDL-C 30 mg/dL Normal 0-40 [facility] Comment on above: Performed By: #### L [id number] #### [facility] ([facility]) [address] [place] [address] POCT GLUCOSE METER UNSOLICIT ED RESULTSon 09-27-2023 Glucose [Mass/Vol] 299 mg/dL High 70-105 [facility] Comment on above: Order Comment: Waive d Testing in the ED is performed under the ED CLIA certificate #[id number]. Result Comment: [email or web address] [email or web address] Performed By: #### L [id number] #### [facility] ([facility]) [address] [place] [address] Glucose [Mass/Vol] 140 mg/dL High 70-105 [facility] Comment on above: Order Comment: Waive d Testing in the ED is performed under the ED CLIA certificate #[id number]. Result Comment: [email or web address] Performed By: #### L [id number] #### [facility] ([facility]) [address] [place] [address] Glucose [Mass/Vol] 193 mg/dL High 70-105 [facility] Comment on above: Order Comment: Waive d Testing in the ED is performed under the ED CLIA certificate #[id number]. Result Comment: [email or web address] Performed By: #### L [id number] #### [facility] ([facility]) [address] [place] [address] Glucose [Mass/Vol] 184 mg/dL High 70-105 [facility] Comment on above: Order Comment: Waive d Testing in the ED is performed under the ED CLIA certificate #[id number]. Result Comment: [email or web address] Performed By: #### L [id number] #### [facility] ([facility]) [address] [place] [address] TROPONIN Ion 09-27-2023 Troponin I.cardiac [Mass/Vol] 3.05 ng/mL Critically high 0.00-0.04 [facility] Comment on above: Result Comment: M-AL EVIOUS CRITICAL RESULT Previous result verified on 09/27/2023 0117 on specimen/case [id number] called with component Troponin I for procedure Troponin I with value 3.51 ng/mL. Performed By: #### L [id number] #### [facility] ([facility]) [address] [place] [address] 30on 09-26-2023 30 The patient is Moder ately Stable - Low risk of patient condition declining or worsening The patient's goals for the shift include Comfort/Rest The clinical goals for the shift include stable vital signs Normal [facility] ANTI-XA (HEPARIN LEVEL)on HEPARIN UNFRACTIONATED (U/ML) IN PPP BY CHROMOGENIC METHOD 0.82 IU/mL High 0.3-0.7 [facility] Comment on above: Order Comment: Check anti-Xa level every 6 hours while on heparin infusion, or per protocol. Result Comment: Page roxaban and Apixaban will interfere with the anti Xa assay used to monitor UFH and LMWH. Performed By: #### L [id number] #### [facility] (BEAKER) [address] [place] [address] APTTon 09-26-2023 ACTIVATED PARTIAL THROMBOPLASTIN TIME IN PPP BY COAGULATION ASSAY 34.7 Seconds Normal 25.0-35.0 [facility] [facility] Comment on above: Order Comment: Basel ine aPTT before initiating heparin infusion. Result Comment: Clin ical significance of the APTT is questionable in the presence of heparin. Performed By: #### L [id number] #### [facility] (BEAKER) [address] [place] [address] Activated partial thrombopla stin time (aPTT) in platelet poor plasma by coagulation aon 09-26-2023 aPTT Coag (PPP) [Time] 28.8 s 22.3-36.2 [facility] Basophils Auto (Bld) [#/Vol] on 09-26-2023 Basophils (Bld) [#/Vol] 0.1 10 3/uL 0.0-0.1 [facility] Basophils/100 WBC Auto (Bld) on 09-26-2023 Basophils/100 WBC (Bld) 0.6 % 0.2-2.0 [facility] CBCon 09-26-2023 Erythrocyte distribution width (RBC) [Ratio] 14.3 % Normal 11.5-15.0 [facility] Comment on above: Performed By: #### L [id number] #### [facility] (BEAKER) [address] [place] [address] ERYTHROCYTE MEAN CORPUSCULAR HEMOGLOBIN CONCENTRATION (G/DL) BY AUTOMATED 33.1 g/dL Normal 32.0-35.0 [facility] Comment on above: Performed By: #### L [id number] #### [facility] ([facility]) [address] [place] [address] Hematocrit (Bld) [Volume fraction] 48.7 % Normal 39.0-55.0 [facility] Comment on above: Performed By: #### L [id number] #### [facility] ([facility]) [address] [place] [address] Hemoglobin (Bld) [Mass/Vol] 16.1 g/dL Normal 13.0-17.0 [facility] Comment on above: Performed By: #### L [id number] #### [facility] ([facility]) [address] [place] [address] MCH (RBC) [Entitic mass] 28.8 pg Normal 27.0-33.0 [facility] Comment on above: Performed By: #### L [id number] #### [facility] ([facility]) [address] [place] [address] MCV (RBC) [Entitic vol] 87.0 fL Normal 82.0-98.0 [facility] Comment on above: Performed By: #### L [id number] #### [facility] ([facility]) [address] [place] [address] PLATELETS (10*3/UL) IN BLOOD AUTOMATED COUNT 170 10*3/uL Normal 150-400 [facility] Comment on above: Performed By: #### L [id number] #### [facility] ([facility]) [address] [place] [address] RBC (Bld) [#/Vol] 5.60 10*6/uL Normal 4.20-5.70 [facility] Comment on above: Performed By: #### L [id number] #### [facility] ([facility]) [address] [place] [address] WBC (Bld) [#/Vol] 7.75 10*3/uL Normal 4.00-10.60 [facility] Comment on above: Performed By: #### L [id number] #### [facility] [address] [place] [address] COMPREHENSIVE METABOLIC PANE Mike 09-26-2023 Albumin [Mass/Vol] 4.3 g/dL Normal 3.5-5.7 [facility] Comment on above: Performed By: #### L [id number] #### [facility] ([facility]) [address] [place] [address] ALP [Catalytic activity/Vol] 100 U/L Normal 34-104 [facility] Comment on above: Performed By: #### L [id number] #### [facility] ([facility]) [address] [place] [address] ALT [Catalytic activity/Vol] 20 U/L Normal 7-52 [facility] Comment on above: Performed By: #### L [id number] #### [facility] ([facility]) [address] [place] [address] Anion gap [Moles/Vol] 15 mmol/L Normal 7-20 [facility] Comment on above: Performed By: #### L [id number] #### [facility] ([facility]) [address] [place] [address] AST [Catalytic activity/Vol] 50 U/L High 13-39 [facility] Comment on above: Performed By: #### L [id number] #### [facility] ([facility]) [address] [place] [address] Bilirubin [Mass/Vol] 1.1 mg/dL High 0.3-1.0 [facility] Comment on above: Performed By: #### L [id number] #### [facility] ([facility]) [address] [place] [address] Calcium [Mass/Vol] 9.4 mg/dL Normal 8.6-10.3 [facility] Comment on above: Performed By: #### L [id number] #### [facility] [address] [place] [address] Chloride [Moles/Vol] 104 mmol/L Normal 98-107 [facility] Comment on above: Performed By: #### L [id number] #### [facility] ([facility]) [address] [place] [address] CO2 [Moles/Vol] 26 mmol/L Normal 21-31 [facility] Comment on above: Performed By: #### L [id number] #### [facility] ([facility]) [address] [place] [address] Creatinine [Mass/Vol] 1.45 mg/dL High 0.70-1.30 [facility] Comment on above: Performed By: #### L [id number] #### [facility] ([facility]) [address] [place] [address] GLOMERULAR FILTRATION RATE ML/MIN/1.73 SQ M.PREDICTED 51.5 mL/min/1.73m*2 Low >60.0 [facility] Comment on above: Result Comment: The [facility]???s estimated glomerular filtration rate (eGFR) will no [...] group of individuals. Performed By: #### L [id number] #### [facility] ([facility]) [address] [place] [address] Glucose [Mass/Vol] 141 mg/dL High 70-100 [facility] Comment on above: Performed By: #### L [id number] #### [facility] ([facility]) [address] [place] [address] Potassium [Moles/Vol] 4.2 mmol/L Normal 3.5-5.1 [facility] Comment on above: Performed By: #### L [id number] #### [facility] (BEAKER) [address] [place] [address] Protein [Mass/Vol] 7.4 g/dL Normal 6.0-8.3 [facility] Comment on above: Performed By: #### L [id number] #### [facility] ([facility]ER) [address] [place] [address] Sodium [Moles/Vol] 141 mmol/L Normal 136-145 [facility] Comment on above: Performed By: #### L [id number] #### [facility] ([facility]AKER) [address] [place] [address] Urea nitrogen [Mass/Vol] 24 mg/dL Normal 7-25 [facility] Comment on above: Performed By: #### L [id number] #### [facility] (BEAKER) [address] [place] [address] UREA NITROGEN/CREATININE (MASS RATIO) IN SER/PLAS 16.6 Normal [facility] Comment on above: Performed By: #### L [id number] #### [facility] ([facility]ER) [address] [place] [address] Eosinophils/100 WBC Auto (Bl d)on 09-26-2023 Eosinophils/100 WBC (Bld) 2.4 % 0.9-7.0 [facility] Erythrocyte distribution wid th Auto (RBC) [Ratio]on 09-26-2023 Erythrocyte distribution width (RBC) [Ratio] 14.3 % 11.0-15.0 [facility] Estimated glomerular filtrat ion rate (GFR) non- Americanon 09-26-2023 GFR/1.73 sq M.predicted among non-blacks MDRD (S/P/Bld) [Vol rate/Area] 39 mL/min/{1.73_m2} Low >=60 [facility] Globulin Calc (S) [Mass/Vol] on 09-26-2023 Globulin (S) [Mass/Vol] 4.0 g/dL [facility] HPon 09-26-2023 HP History Of Present I lleliu Lani Lizama is a 72 y.o. male presenting with patient is a 72-year-old gentleman with history of coronary atherosclerosisChest pain. 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 Patient woke up with chest pain around [...] wasstarted on heparin and was transferred to [facility] for further cares. Creatinine was 1.7. [...] HOSPITAL/HCC), Hyperlipidemia, Hypertension, PVD (peripheral vascular disease) ([facility]), and Third degree heart block ([facility]). Surgical History He has a past surgical [...] (more content not included)... Normal [facility] Hematocrit Auto (Bld) [Volum e fraction]on 09-26-2023 Hematocrit (Bld) [Volume fraction] 49.4 % 42.0-54.0 [facility] Hemoglobin [Mass/volume] in Bloodon 09-26-2023 Hemoglobin (Bld) [Mass/Vol] 16.0 g/dL 14.0-18.0 [facility] INR in Platelet poor plasma by Coagulation assayon 09-26-2023 INR Coag (PPP) [Relative time] 0.99 {INR} [facility] Comment on above: DESIRED INR:2.0-3.0 CONDITIONS NOT LISTED BELOW2.5-3.5 FOR PROSTHETIC HEART VALVE REPLACEMENT2.5-3.5 RECURRENT THROMBOSIS LACTIC ACID WITH 4 HOUR REFL EXon 09-26-2023 LACTATE (MMOL/L) IN SER/PLAS 1.1 mmol/L Normal 0.5-2.2 [facility] Comment on above: Performed By: #### L [id number] #### [facility] ([facility]AKER) [address] [place] [address] Laboratory - Chemistry and C hemistry - challengeon 09-26-2023 Albumin [Mass/Vol] 4.1 g/dL 3.4-5.0 [facility] ALP [Catalytic activity/Vol] 146 U/L High 46-116 [facility] ALT [Catalytic activity/Vol] 32 U/L 16-63 [facility] AST [Catalytic activity/Vol] 26 U/L 15-37 [facility] Bilirubin [Mass/Vol] 0.7 mg/dL 0.2-1.0 [facility] Calcium [Mass/Vol] 9.2 mg/dL 8.5-10.1 [facility] Chloride [Moles/Vol] 104 mmol/L 98-107 [facility] CO2 [Moles/Vol] 24.8 mmol/L 21.0-32.0 [facility] Creatinine [Mass/Vol] 1.72 mg/dL High 0.70-1.30 [facility] GFR/1.73 sq M.predicted MDRD (S/P/Bld) [Vol rate/Area] 48 mL/min/{1.73_m2} Low >=60 [facility] Glucose [Mass/Vol] 206 mg/dL High 74-106 [facility] Potassium [Moles/Vol] 4.2 mmol/L 3.5-5.1 [facility] Protein [Mass/Vol] 8.1 g/dL 6.4-8.2 [facility] Sodium [Moles/Vol] 141 mmol/L 136-145 [facility] Urea nitrogen [Mass/Vol] 26.0 mg/dL High 7.0-18.0 [facility] Urea nitrogen/Creatinine [Mass ratio] 15.1 mg/mg [facility] Laboratory - Hematology and Cell countson 09-26-2023 Immature granulocytes/100 WBC (Bld) 0.3 % 0.0-0.5 [facility] Leukocytes [#/volume] correc soraya for nucleated erythrocytes in Blood by Automated counon 09-26-2023 WBC corrected for nucl RBC Auto (Bld) [#/Vol] 10.5 10 3/uL 4.0-11.0 [facility] Lymphocytes Auto (Bld) [#/Vo l]on 09-26-2023 Lymphocytes (Bld) [#/Vol] 2.0 10 3/uL 1.2-3.8 [facility] Lymphocytes/100 WBC Auto (Bl d)on 09-26-2023 Lymphocytes/100 WBC (Bld) 18.7 % Low 20.5-60.0 [facility] MCH Auto (RBC) [Entitic mass ]on 09-26-2023 MCH (RBC) [Entitic mass] 28.4 pg 25.9-34.0 [facility] MCHC Auto (RBC) [Mass/Vol]on 09-26-2023 MCHC (RBC) [Mass/Vol] 32.4 g/dL 29.9-35.2 [facility] MCV Auto (RBC) [Entitic vol] on 09-26-2023 MCV (RBC) [Entitic vol] 87.7 fL 80.0-94.0 [facility] Monocytes Auto (Bld) [#/Vol] on 09-26-2023 Monocytes (Bld) [#/Vol] 0.8 10 3/uL 0.3-0.8 [facility] Monocytes/100 WBC Auto (Bld) on 09-26-2023 Monocytes/100 WBC (Bld) 7.3 % 1.7-12.0 [facility] Neutrophils Auto (Bld) [#/Vo l]on 09-26-2023 Neutrophils (Bld) [#/Vol] 7.4 10 3/uL High 1.4-6.5 [facility] Neutrophils/100 WBC Auto (Bl d)on 09-26-2023 Neutrophils/100 WBC (Bld) 70.7 % 43.0-75.0 [facility] No Panel Informationon 09-25 Troponin I High Sensitivity 8614.2 pg/mL High 4.0-76.1 [facility] Comment on above: RESULTS CALLED TO [...] Eosinophils # (Auto) 0.3 10 3/uL 0.0-0.7 [facility] Immature Granulocyte # (Auto) 0.03 10 3/uL 0.00-0.03 [facility] POCT GLUCOSE METER UNSOLICIT ED RESULTSon 09-26-2023 Glucose [Mass/Vol] 286 mg/dL High 70-105 [facility] Comment on above: Order Comment: Waive d Testing in the ED is performed under the ED CLIA certificate #[id number]. Result Comment: roberto macias Performed By: #### L [id number] #### [facility] (BEAKER) [address] [place] [address] Glucose [Mass/Vol] 151 mg/dL High 70-105 [facility] Comment on above: Order Comment: Waive d Testing in the ED is performed under the ED CLIA certificate #[id number]. Result Comment: [email or web address] [email or web address] Performed By: #### L [id number] #### [facility] (BEAKER) [address] [place] [address] Platelet mean volume Auto (B ld) [Entitic vol]on 09-26-2023 Platelet mean volume (Bld) [Entitic vol] 10.0 fL 9.5-13.5 [facility] Platelets Auto (Bld) [#/Vol] on 09-26-2023 Platelets (Bld) [#/Vol] 194 10 3/uL 150-450 [facility] Prothrombin time (PT)on 08-31 PT Coag (PPP) [Time] 10.5 s 9.0-11.6 [facility] RBC Auto (Bld) [#/Vol]on RBC (Bld) [#/Vol] 5.63 10 6/uL 4.70-6.10 [facility] Serum or plasma albumin/glob ulin mass ratioon 09-26-2023 Albumin/Globulin [Mass ratio] 1.0 {ratio} [facility] Serum or plasma anion gap de terminationon 09-26-2023 Anion gap [Moles/Vol] 16.4 mmol/L [facility] TROPONIN Ion 09-26-2023 Troponin I.cardiac [Mass/Vol] 3.51 ng/mL Critically high 0.00-0.04 [facility] Comment on above: Result Comment: M-AL EVIOUS CRITICAL RESULT Previous result verified on 09/26/2023 2309 on specimen/case [id number] called with component Troponin I for procedure Troponin I with value 3.41 ng/mL. Performed By: #### L [id number] #### [facility] ([facility]) [address] [place] [address] Troponin I.cardiac [Mass/Vol] 3.41 ng/mL Critically high 0.00-0.04 [facility] Comment on above: Result Comment: M-AL EVIOUS CRITICAL RESULT Previous result verified on 09/26/2023 1926 on specimen/case [id number] called with component Troponin I for procedure Troponin I with value 4.22 ng/mL. Performed By: #### L [id number] #### [facility] ([facility]) [address] [place] [address] Troponin I.cardiac [Mass/Vol] 4.22 ng/mL Critically high 0.00-0.04 [facility] Comment on above: Result Comment: M-TR OPONIN INITIAL CRITICAL HIGH; RESPUN AND RETESTED Performed By: #### L [id number] #### [facility] ([facility]) [address] [place] [address] Office Visiton 09-09-2023 Follow-up visit [id number] Lani Lizama 1950 M Date Provider Department Center 09/09/2023 [facility] Family History Problem Relation Age of Onset Heart attack Mother Other Father Other Brother Heart attack Maternal Grandmother Heart attack Maternal Grandfather Family Status - Relation Status Age at Mother Father Brother Maternal Grandmother Maternal Grandfather Level of Service:66389 AL OFFICE/OUTPATIENT ESTABLISHED MOD MDM 30 MIN Normal [facility] No Panel Informationon 08-26 Prostate Specific Antigen Screen 1.37 ng/mL <=4.00 [facility] Erythrocyte distribution wid th Auto (RBC) [Ratio]on 06-24-2023 Erythrocyte distribution width (RBC) [Ratio] 14.6 % 11.0-15.0 [facility] Estimated glomerular filtrat ion rate (GFR) non- Americanon 06-24-2023 GFR/1.73 sq M.predicted among non-blacks MDRD (S/P/Bld) [Vol rate/Area] 38 mL/min/{1.73_m2} >=60 [facility] Hematocrit Auto (Bld) [Volum e fraction]on 06-24-2023 Hematocrit (Bld) [Volume fraction] 46.2 % 42.0-54.0 [facility] Hemoglobin [Mass/volume] in Bloodon 06-24-2023 Hemoglobin (Bld) [Mass/Vol] 14.5 g/dL 14.0-18.0 [facility] Laboratory - Chemistry and C hemistry - challengeon 06-24-2023 Albumin [Mass/Vol] 4.0 g/dL 3.4-5.0 [facility] Calcium [Mass/Vol] 9.2 mg/dL 8.5-10.1 [facility] Chloride [Moles/Vol] 106 mmol/L 98-107 [facility] CO2 [Moles/Vol] 25.4 mmol/L 21.0-32.0 [facility] Creatinine [Mass/Vol] 1.76 mg/dL 0.70-1.30 [facility] GFR/1.73 sq M.predicted MDRD (S/P/Bld) [Vol rate/Area] 47 mL/min/{1.73_m2} >=60 [facility] Glucose [Mass/Vol] 212 mg/dL 74-106 [facility] Magnesium [Mass/Vol] 2.1 mg/dL 1.8-2.4 [facility] Potassium [Moles/Vol] 4.5 mmol/L 3.5-5.1 [facility] Sodium [Moles/Vol] 142 mmol/L 136-145 [facility] Urate [Mass/Vol] 4.3 mg/dL 3.5-7.2 [facility] Urea nitrogen [Mass/Vol] 30.0 mg/dL 7.0-18.0 [facility] Urea nitrogen/Creatinine [Mass ratio] 17.0 mg/mg [facility] Laboratory - Urinalysison Protein (U) [Mass/Vol] 11.5 mg/dL <=11.9 [facility] Leukocytes [#/volume] correc soraya for nucleated erythrocytes in Blood by Automated counon 06-24-2023 WBC corrected for nucl RBC Auto (Bld) [#/Vol] 9.6 10 3/uL 4.0-11.0 [facility] MCH Auto (RBC) [Entitic mass ]on 06-24-2023 MCH (RBC) [Entitic mass] 28.5 pg 25.9-34.0 [facility] MCHC Auto (RBC) [Mass/Vol]on 06-24-2023 MCHC (RBC) [Mass/Vol] 31.4 g/dL 29.9-35.2 [facility] MCV Auto (RBC) [Entitic vol] on 06-24-2023 MCV (RBC) [Entitic vol] 90.8 fL 80.0-94.0 [facility] No Panel Informationon 06-23 25-Hydroxy Vitamin D Total 42.5 ng/mL [facility] Comment on above: <20 ng/mL Vit D defi cient20-<30 ng/mL Vit D [id number] ng/mL Vit D sufficient>100 ng/mL Potential Toxicity Parathyroid Hormone (Intact) 48 pg/mL 15-65 [facility] Comment on above: Performed at: [address] [id number] Director: Kwaku Park PhD, Phone: [phone] Phosphorus Level 3.6 mg/dL 2.6-4.7 [facility] Urine Random Creatinine 60.60 mg/dL 20.00-300. 00 [facility] Platelet mean volume Auto (B ld) [Entitic vol]on 06-24-2023 Platelet mean volume (Bld) [Entitic vol] 10.2 fL 9.5-13.5 [facility] Platelets Auto (Bld) [#/Vol] on 06-24-2023 Platelets (Bld) [#/Vol] 178 10 3/uL 150-450 [facility] RBC Auto (Bld) [#/Vol]on RBC (Bld) [#/Vol] 5.09 10 6/uL 4.70-6.10 [facility] Serum or plasma anion gap de terminationon 06-24-2023 Anion gap [Moles/Vol] 15.1 mmol/L [facility] Urine protein/creatinine rat ioon 06-24-2023 Protein/Creatinine (U) [Ratio] 0.19 [facility] HbA1c HPLC (Bld) [Mass fract ion]on 06-18-2023 HbA1c (Bld) [Mass fraction] 6.1 % [facility] No Panel Informationon 06-17 Bedside Glucose 150 [facility] Cholesterol in LDL Calc [Mas s/Vol]on 06-13-2023 Cholesterol in LDL [Mass/Vol] 29.0 mg/dL [facility] Comment on above: <100 mg/dl [id number] 0-129 mg/dl NEAR OR ABOVE [id number] mg/dl BORDERLINE [id number] mg/dl HIGH>190 mg/dl VERY HIGH Cholesterol in VLDL Calc [Ma ss/Vol]on 06-13-2023 Cholesterol in VLDL [Mass/Vol] 24.8 mg/dL [facility] Laboratory - Chemistry and C hemistry - challengeon 06-13-2023 Cholesterol [Mass/Vol] 87 mg/dL <=200 [facility] Cholesterol in HDL [Mass/Vol] 34 mg/dL 40-60 [facility] Comment on above: > or =60 mg/dl - LOW CARDIOVASCULAR RISK<40 mg/dl - HIGH CARDIOVASCULAR RISK Triglyceride [Mass/Vol] 124 mg/dL <=150 [facility] Serum or plasma total choles terol/high density lipoprotein (HDL) cholesterol mass yulia 06-13-2023 Cholesterol.total/Cho lesterol in HDL [Mass ratio] 2.6 {ratio} [facility] Comment on above: 3.3 - 4.4 LOW RISK4. 4 - 7.1 AVERAGE RISK7.1 - 11.0 MODERATE RISK>11.0 HIGH RISK A1C HEMOGLOBINon 03-12-2023 HbA1c (Bld) [Mass fraction] 7.1 % [employer] Other Glucose - FINGER STICKon Glucose [Mass/Vol] 151 mg/dL [employer] Other HbA1c (Bld) [Mass fraction]o n 03-12-2023 A1C [facility]GLOBIN [facility] CHEST WO CONon 08-09-2022 CT [...] by: HAZEL SCHILLING Date: 2022-08-09 14:00 Normal [facility] A1C HEMOGLOBINon 06-26-2022 HbA1c (Bld) [Mass fraction] 7.4 % [employer] Other Glucose - FINGER STICKon Glucose [Mass/Vol] 267 mg/dL [employer] Other HbA1c (Bld) [Mass fraction]o n 06-26-2022 A1C HEMOGLOBIN [employer] Other PTH INTACTon 06-26-2022 PTH, Intact 37 pg/mL Normal 15-65 [facility] Comment on above: Performed By: #### C MP, CMADM #### [facility] [address] [place] [address] Dr. Mirza Sadler FERRITINon 06-25-2022 Ferritin [Mass/Vol] 269.0 ng/mL Normal 26.0-388.0 [facility] Comment on above: Performed By: #### B BRIM RAISER #### [facility] [address] [place] [address] Dr. Mirza Sadler HEMOGRAM AND PLATELon 2022 Hematocrit (Bld) [Volume fraction] 44.7 % Normal 42.0-54.0 [facility] Comment on above: Performed By: #### P T, PTT #### [facility] [address] [place] [address] Dr. Mirza Sadler Hemoglobin (Bld) [Mass/Vol] 15.1 g/dL Normal 14.0-18.0 [facility] Comment on above: Performed By: #### P T, PTT #### [facility] [address] [place] [address] Dr. Mirza Sadler MCH (RBC) [Entitic mass] 30.0 pg Normal 25.9-34.0 [facility] Comment on above: Performed By: #### P T, PTT #### [facility] [address] [place] [address] Dr. Mirza Sadler MCHC (RBC) [Mass/Vol] 33.8 g/dL Normal 29.9-35.2 [facility] Comment on above: Performed By: #### P T, PTT #### [facility] [address] [place] [address] Dr. Mirza Sadler MCV (RBC) [Entitic vol] 88.9 fL Normal 80.0-94.0 [facility] Comment on above: Performed By: #### P T, PTT #### [facility] [address] [address] [address] Mirza Sadler PLT 199 103/ul Normal 150-450 [facility] Comment on above: Performed By: #### P T, PTT #### [facility] [address] [address] [address] Mirza Sadler RBC 5.03 106/ul Normal 4.70-6.10 [facility] Comment on above: Performed By: #### P T, PTT #### [facility] [address] [address] [address] Mirza Sadler WBC 8.7 103/ul Normal 4.0-11.0 [facility] Comment on above: Performed By: #### P T, PTT #### [facility] [address] [address] [address] Mirza Sadler IRON AND TIBCon 06-25-2022 % SATURATION 28.6 % Normal [facility] Comment on above: Performed By: #### B BRIM RAISER #### [facility] [address] [address] [address] Mirza Sadler Iron [Mass/Vol] 82.0 ug/dL Normal 65.0-175.0 [facility] Comment on above: Performed By: #### B BRIM RAISER #### [facility] [address] [place] [address] Dr. Mirza Sadler TIBC DIRECT 287.0 ug/dL Normal 250.0-450. 0 [facility] Comment on above: Performed By: #### B BRIM RAISER #### [facility] [address] [place] [address] Dr. Mirza Sadler MAGNESIUMon 06-25-2022 Magnesium [Mass/Vol] 2.0 mg/dL Normal 1.8-2.4 [facility] Comment on above: Performed By: #### B BRIM RAISER #### [facility] [address] [address] [address] Mirza Sadler RENAL FUNCTION PANELon 06-25 Albumin [Mass/Vol] 4.2 g/dL Normal 3.4-5.0 [facility] Comment on above: Performed By: #### B BRIM RAISER #### [facility] [address] [address] [address] Mirza Sadler Calcium [Mass/Vol] 9.3 mg/dL Normal 8.5-10.1 [facility] Comment on above: Performed By: #### B BRIM RAISER #### [facility] [address] [address] [address] Mirza Sadler Chloride [Moles/Vol] 108 mmol/L Critically high 98-107 [facility] Comment on above: Performed By: #### B BRIM RAISER #### [facility] [address] [address] [address] Mirza Sadler CO2 [Moles/Vol] 29.5 mmol/L Normal 21.0-32.0 [facility] Comment on above: Performed By: #### B BRIM RAISER #### [facility] [address] [address] [address] Mirza Sadler Creatinine [Mass/Vol] 1.87 mg/dL Critically high 0.70-1.30 [facility] Comment on above: Performed By: #### B BRIM RAISER #### [facility] [address] [address] [address] Mirza Sadler EGFR-AF S[place]AN 43 mL/min/1.73m2 Critically low >=60 [facility] Comment on above: Performed By: #### B BRIM RAISER #### [facility] [address] [address] [address] Mirza Sadler EGFR-NON AF [place]AN 36 mL/min/1.73m2 Critically low >=60 [facility] Comment on above: Performed By: #### B BRIM RAISER #### [facility] [address] [address] [address] Mirza Sadler Glucose [Mass/Vol] 181 mg/dL Critically high 74-106 [facility] Comment on above: Performed By: #### B BRIM RAISER #### [facility] [address] [address] [address] Mirza Sadler Phosphate [Mass/Vol] 4.8 mg/dL Critically high 2.6-4.7 [facility] Comment on above: Performed By: #### B BRIM RAISER #### [facility] [address] [place] [address] Dr. Mirza Sadler Potassium [Moles/Vol] 4.8 mmol/L Normal 3.5-5.1 [facility] Comment on above: Performed By: #### B BRIM RAISER #### [facility] [address] [place] [address] Dr. Mirza Sadler Sodium [Moles/Vol] 146 mmol/L Critically high 136-145 [facility] Comment on above: Performed By: #### B BRIM RAISER #### [facility] [address] [place] [address] Dr. Mirza Sadler Urea nitrogen [Mass/Vol] 40.0 mg/dL Critically high 7.0-18.0 [facility] Comment on above: Performed By: #### B BRIM RAISER #### [facility] [address] [place] [address] Dr. Mirza Sadler UA RANDOM W/MICROSCOPICon BACTERIA NONE SEEN Normal NONE SEEN [facility] Comment on above: Performed By: #### H STROPN #### [facility] [address] [place] [address] Dr. Mirza Sadler Bilirubin Ql (U) Negative Normal NEGATIVE [facility] Comment on above: Performed By: #### H STROPN #### [facility] [address] [place] [address] Dr. Mirza Sadler CAST NONE SEEN Normal NONE [facility] Comment on above: Performed By: #### H STROPN #### [facility] [address] [place] [address] Dr. Mirza Sadler Clarity (U) CLEAR Normal CLEAR [facility] Comment on above: Performed By: #### H STROPN #### [facility] [address] [place] [address] Dr. Mirza Sadler Color (U) LT. YELLOW Normal YELLOW [facility] Comment on above: Performed By: #### H STROPN #### [facility] [address] [place] [address] Dr. Mirza Sadler Crystals LM Nom (Urine sed) NONE SEEN Normal NONE SEEN [facility] Comment on above: Performed By: #### H STROPN #### [facility] [address] [address] [address] Mirza Sadler Epithelial cells LM Ql (Urine sed) FEW Abnormal NONE SEEN /RARE [facility] Comment on above: Performed By: #### H STROPN #### [facility] [address] [address] [address] Mirza Sadler Glucose Ql (U) 500 mg/dl Abnormal NEGATIVE [facility] Comment on above: Performed By: #### H STROPN #### [facility] [address] [address] [address] Mirza Sadler Hemoglobin Ql (U) Negative Normal NEGATIVE [facility] Comment on above: Performed By: #### H STROPN #### [facility] [address] [place] [address] Dr. Mirza Sadler Ketones Ql (U) Negative Normal NEGATIVE [facility] Comment on above: Performed By: #### H STROPN #### [facility] [address] [address] [address] Mirza Sadler LEUKOCYTES Negative Normal NEGATIVE [facility] Comment on above: Performed By: #### H STROPN #### [facility] [address] [address] [address] Mirza Sadler MUCOUS NONE SEEN Normal NONE SEEN [facility] Comment on above: Performed By: #### H STROPN #### [facility] [address] [address] [address] Mirza Sadler Nitrite Ql (U) Negative Normal NEGATIVE [facility] Comment on above: Performed By: #### H STROPN #### [facility] [address] [address] [address] Mirza Sadler pH (U) 5.5 [pH] Normal 5-9 [facility] Comment on above: Performed By: #### H STROPN #### [facility] [address] [place] [address] Dr. Mirza Sadler RBC 0-2 Normal 0-2 [facility] Comment on above: Performed By: #### H STROPN #### [facility] [address] [place] [address] Dr. Mirza Sadler SPEC GRAVITY 1.015 Normal 1.005-<=1. 025 [facility] Comment on above: Performed By: #### H STROPN #### [facility] [address] [place] [address] Dr. Mirza Sadler UA PROTEIN Negative Normal NEGATIVE/ TRACE [facility] Comment on above: Performed By: #### H STROPN #### [facility] [address] [place] [address] Dr. Mirza Sadler Urobilinogen Qn (U) 0.2 {Luisito'U}/dL Normal 0.2 - 1. 0 [facility] Comment on above: Performed By: #### H STROPN #### [facility] [address] [place] [address] Dr. Mirza Sadler WBC NONE SEEN Normal NONE SEEN [facility] Comment on above: Performed By: #### H STROPN #### [facility] [address] [place] [address] Dr. Mirza Sadler URIC ACID SERUMon 06-25-2022 Urate [Mass/Vol] 6.1 mg/dL Normal 3.5-7.2 [facility] Comment on above: Performed By: #### B BRIM RAISER #### [facility] [address] [place] [address] Dr. Mirza Sadler URINE T PROTEIN CREAT RATIOo n 06-25-2022 Protein (U) [Mass/Vol] 9.7 mg/dL Normal <=12.0 [facility] Comment on above: Performed By: #### C TEGAN MARIN #### [facility] [address] [place] [address] Dr. Mirza Sadler UR PROT CREAT RAT 0.14 Normal [facility] Comment on above: Performed By: #### C TEGAN MARIN #### [facility] [address] [place] [address] Dr. Mirza Sadler URINE CREAT 71.45 mg/dL Normal 20.00-300. 00 [facility] Comment on above: Performed By: #### C TEGAN MARIN #### [facility] [address] [address] [address] Mirza Sadler VITAMIN D 25 OHon 06-25-2022 VIT D 25-OH 44.7 ng/mL Normal [facility] Comment on above: Performed By: #### E RUR #### [facility] [address] [address] [address] Mirza Sadler VIT D RANGES SEE BELOW Normal [facility] Comment on above: Result Comment: <20 ng/mL Vit D deficient 20 - <30 ng/mL Vit D insufficient 30 - 100 ng/mL Vit D sufficient >100 ng/mL Potential Toxicity Performed By: #### E RUR #### [facility] [address] [address] [address] Mirza Sadler LIPID PROFILEon 06-18-2022 CHOL-HDL RATIO NORM SEE BELOW Normal [facility] Comment on above: Result Comment: 3.3 - 4.4 LOW RISK 4.4 - 7.1 AVERAGE RISK 7.1 - 11.0 MODERATE RISK >11.0 HIGH RISK Performed By: #### H STROPN #### [facility] [address] [place] [address] Dr. Mirza Sadler Cholesterol [Mass/Vol] 136 mg/dL Normal <=200 [facility] Comment on above: Performed By: #### H STROPN #### [facility] [address] [place] [address] Dr. Mirza Sadler Cholesterol in HDL [Mass/Vol] 38 mg/dL Critically low 40-60 [facility] Comment on above: Performed By: #### H STROPN #### [facility] [address] [address] [address] Mirza Sadler Cholesterol in LDL [Mass/Vol] 69.6 mg/dL Normal [facility] Comment on above: Performed By: #### H STROPN #### [facility] [address] [address] [address] Mirza Sadler Cholesterol.total/Cho lesterol in HDL [Mass ratio] 3.6 {ratio} Normal [facility] Comment on above: Performed By: #### H STROPN #### [facility] [address] [address] [address] Mirza Sadler HDL NORMAL > or = 60 mg/dl - LO W CARDIOVASCULAR RISK <40 mg/dl - HIGH CARDIOVASCULAR RISK Normal [facility] Comment on above: Performed By: #### H STROPN #### [facility] [address] [address] [address] Mirza Sadler LDL CALC NORMAL SEE BELOW Normal [facility] Comment on above: Result Comment: <100 mg/dl OPTIMAL 100 - 129 mg/dl NEAR OR ABOVE OPTIMAL 130 - 159 mg/dl BORDERLINE HIGH 160 - 189 mg/dl HIGH >190 mg/dl VERY HIGH Performed By: #### H STROPN #### [facility] [address] [address] [address] Mirza Sadler Triglyceride [Mass/Vol] 142 mg/dL Normal <=150 [facility] Comment on above: Performed By: #### H STROPN #### [facility] [address] [address] [address] Mirza Sadler VLDL CALC 28.4 mg/dL Normal [facility] Comment on above: Performed By: #### H STROPN #### [facility] [address] [address] [address] CHEST WO CONon [...] HIGINIO FLANAGAN Date: 2022-06-05 16:58 Normal [facility] CT CHEST WO [facility] [employer] Other PROF CHEM 8 (BAS METB)on Anion gap [Moles/Vol] 10.2 mmol/L Normal [facility] Comment on above: Performed By: #### B BRIM RAISER #### [facility] [address] [place] [address] Dr. Mirza Sadler Calcium [Mass/Vol] 8.9 mg/dL Normal 8.5-10.1 [facility] Comment on above: Performed By: #### B BRIM RAISER #### [facility] [address] [address] [address] Mirza Sadler Chloride [Moles/Vol] 101 mmol/L Normal 98-107 [facility] Comment on above: Performed By: #### B BRIM RAISER #### [facility] [address] [place] [address] Dr. Mirza Sadler CO2 [Moles/Vol] 31.2 mmol/L Normal 21.0-32.0 [facility] Comment on above: Performed By: #### B BRIM RAISER #### [facility] [address] [address] [address] Mirza Sadler Creatinine [Mass/Vol] 1.91 mg/dL Critically high 0.70-1.30 [facility] Comment on above: Performed By: #### B BRIM RAISER #### [facility] [address] [place] [address] Dr. Mirza Sadler EGFR-AF [place] 42 mL/min/1.73m2 Critically low >=60 [facility] Comment on above: Performed By: #### B BRIM RAISER #### [facility] [address] [place] [address] Dr. Mirza Sadler EGFR-NON AF [place] 35 mL/min/1.73m2 Critically low >=60 [facility] Comment on above: Performed By: #### B BRIM RAISER #### [facility] [address] [address] [address] Mirza Sadler Glucose [Mass/Vol] 242 mg/dL Critically high 74-106 [facility] Comment on above: Performed By: #### B BRIM RAISER #### [facility] [address] [address] [address] Mirza Sadler Potassium [Moles/Vol] 4.4 mmol/L Normal 3.5-5.1 [facility] Comment on above: Performed By: #### B BRIM RAISER #### [facility] [address] [address] [address] Mirza Sadler Sodium [Moles/Vol] 138 mmol/L Normal 136-145 [facility] Comment on above: Performed By: #### B BRIM RAISER #### [facility] [address] [address] [address] Mirza Sadler Urea nitrogen [Mass/Vol] 33.0 mg/dL Critically high 7.0-18.0 [facility] Comment on above: Performed By: #### B BRIM RAISER #### [facility] [address] [place] [address] Dr. Mirza Sadler Urea nitrogen/Creatinine [Mass ratio] 17.3 mg/mg Normal [facility] Comment on above: Performed By: #### B BRIM RAISER #### [facility] [address] [place] [address] Dr. Mirza Sadler PROF CHEM 8 (BAS METB)on Anion gap [Moles/Vol] 10.7 mmol/L Normal [facility] Comment on above: Performed By: #### P T, PTT #### [facility] [address] [place] [address] Dr. Mirza Sadler Calcium [Mass/Vol] 8.9 mg/dL Normal 8.5-10.1 [facility] Comment on above: Performed By: #### P T, PTT #### [facility] [address] [place] [address] Dr. Mirza Sadler Chloride [Moles/Vol] 104 mmol/L Normal 98-107 [facility] Comment on above: Performed By: #### P T, PTT #### [facility] [address] [address] [address] Mirza Sadler CO2 [Moles/Vol] 29.4 mmol/L Normal 21.0-32.0 [facility] Comment on above: Performed By: #### P T, PTT #### [facility] [address] [address] [address] Mirza Sadler Creatinine [Mass/Vol] 1.75 mg/dL Critically high 0.70-1.30 [facility] Comment on above: Performed By: #### P T, PTT #### [facility] [address] [place] [address] Dr. Mirza Sadler EGFR-AF [place] 47 mL/min/1.73m2 Critically low >=60 [facility] Comment on above: Performed By: #### P T, PTT #### [facility] [address] [place] [address] Dr. Mirza Sadler EGFR-NON AF [place] 39 mL/min/1.73m2 Critically low >=60 [facility] Comment on above: Performed By: #### P T, PTT #### [facility] [address] [place] [address] Dr. Mirza Sadler Glucose [Mass/Vol] 191 mg/dL Critically high 74-106 [facility] Comment on above: Performed By: #### P T, PTT #### [facility] [address] [place] [address] Dr. Mirza Sadler Potassium [Moles/Vol] 4.1 mmol/L Normal 3.5-5.1 [facility] Comment on above: Performed By: #### P T, PTT #### [facility] [address] [place] [address] Dr. Mirza Sadler Sodium [Moles/Vol] 140 mmol/L Normal 136-145 [facility] Comment on above: Performed By: #### P T, PTT #### [facility] [address] [address] [address] Mirza Sadler Urea nitrogen [Mass/Vol] 31.0 mg/dL Critically high 7.0-18.0 [facility] Comment on above: Performed By: #### P T, PTT #### [facility] [address] [address] [address] Mirza Sadler Urea nitrogen/Creatinine [Mass ratio] 17.7 mg/mg Normal [facility] Comment on above: Performed By: #### P T, PTT #### [facility] [address] [address] [address] Mirza Sadler XR CHEST 2 Von [...] HIGINIO FLANAGAN Date: 2022-03-22 16:12 Normal [facility] A1C HEMOGLOBINon 03-20-2022 HbA1c (Bld) [Mass fraction] 6.7 % [employer] Other Glucose - FINGER STICKon Glucose [Mass/Vol] 193 mg/dL [employer] Other HbA1c (Bld) [Mass fraction]o n 03-20-2022 A1C HEMOGLOBIN [employer] Other BNPon 03-13-2022 Natriuretic peptide B (Bld) [Mass/Vol] 4825.0 pg/mL Critically high <=900.0 [facility] Comment on above: Performed By: #### E RUR #### [facility] [address] [address] [address] Mirza Sadler CBC AUTO DIFFon 03-13-2022 BASO # 0.0 103/ul Normal 0.0-0.1 [facility] Comment on above: Performed By: #### E RUR #### [facility] [address] [place] [address] Dr. Mirza Sadler Basophils/100 WBC (Bld) 0.6 % Normal 0.2-2.0 [facility] Comment on above: Performed By: #### E RUR #### [facility] [address] [place] [address] Dr. Mirza Sadler EO # 0.1 103/ul Normal 0.0-0.7 [facility] Comment on above: Performed By: #### E RUR #### [facility] [address] [place] [address] Dr. Mirza Sadler Eosinophils/100 WBC (Bld) 1.8 % Normal 0.9-7.0 [facility] Comment on above: Performed By: #### E RUR #### [facility] [address] [place] [address] Dr. Mirza Sadler Erythrocyte distribution width (RBC) [Ratio] 14.4 % Normal 11.0-15.0 [facility] Comment on above: Performed By: #### E RUR #### [facility] [address] [place] [address] Dr. Mirza Sadler Hematocrit (Bld) [Volume fraction] 36.1 % Critically low 42.0-54.0 [facility] Comment on above: Performed By: #### E RUR #### [facility] [address] [place] [address] Dr. Mirza Sadler Hemoglobin (Bld) [Mass/Vol] 11.9 g/dL Critically low 14.0-18.0 [facility] Comment on above: Performed By: #### E RUR #### [facility] [address] [place] [address] Dr. Mirza Sadler IG # 0.02 10e3/ul Normal 0.00-0.03 [facility] Comment on above: Performed By: #### E RUR #### [facility] [address] [place] [address] Dr. Mirza Sadler IG % 0.3 % Normal 0.0-0.5 [facility] Comment on above: Performed By: #### E RUR #### [facility] [address] [place] [address] Dr. Mirza Sadler LYMPH # 1.5 103/ul Normal 1.2-3.8 [facility] Comment on above: Performed By: #### E RUR #### [facility] [address] [place] [address] Dr. Mirza Sadler Lymphocytes/100 WBC (Bld) 22.6 % Normal 20.5-60.0 [facility] Comment on above: Performed By: #### E RUR #### [facility] [address] [place] [address] Dr. Mirza Sadler MANUAL DIFF REQ NO Normal [facility] Comment on above: Performed By: #### E RUR #### [facility] [address] [place] [address] Dr. Mirza Sadler MCH (RBC) [Entitic mass] 29.0 pg Normal 25.9-34.0 [facility] Comment on above: Performed By: #### E RUR #### [facility] [address] [place] [address] Dr. Mirza Sadler MCHC (RBC) [Mass/Vol] 33.0 g/dL Normal 29.9-35.2 [facility] Comment on above: Performed By: #### E RUR #### [facility] [address] [place] [address] Dr. Mirza Sadler MCV (RBC) [Entitic vol] 88.0 fL Normal 80.0-94.0 [facility] Comment on above: Performed By: #### E RUR #### [facility] [address] [place] [address] Dr. Mirza Sadler MONO # 0.7 103/ul Normal 0.3-0.8 [facility] Comment on above: Performed By: #### E RUR #### [facility] [address] [address] [address] Mirza Sadler Monocytes/100 WBC (Bld) 10.2 % Normal 1.7-12.0 [facility] Comment on above: Performed By: #### E RUR #### [facility] [address] [address] [address] Mirza Sadler NEUT # 4.3 103/ul Normal 1.4-6.5 [facility] Comment on above: Performed By: #### E RUR #### [facility] [address] [place] [address] Dr. Mirza Sadler Neutrophils/100 WBC (Bld) 64.5 % Normal 43.0-75.0 [facility] Comment on above: Performed By: #### E RUR #### [facility] [address] [place] [address] Dr. Mirza Sadler Platelet mean volume (Bld) [Entitic vol] 9.7 fL Normal 9.5-13.5 [facility] Comment on above: Performed By: #### E RUR #### [facility] [address] [place] [address] Dr. Mirza Sadler PLT 149 103/ul Critically low 150-450 [facility] Comment on above: Performed By: #### E RUR #### [facility] [address] [place] [address] Dr. Mirza Sadler RBC 4.10 106/ul Critically low 4.70-6.10 [facility] Comment on above: Performed By: #### E RUR #### [facility] [address] [place] [address] Dr. Mirza Sadler WBC 6.6 103/ul Normal 4.0-11.0 [facility] Comment on above: Performed By: #### E RUR #### [facility] [address] [place] [address] Dr. Mirza Sadler PROF CHEM 8 (BAS METB)on Anion gap [Moles/Vol] 14.6 mmol/L Normal [facility] Comment on above: Performed By: #### E RUR #### [facility] [address] [address] [address] Mirza Sadler Calcium [Mass/Vol] 8.5 mg/dL Normal 8.5-10.1 [facility] Comment on above: Performed By: #### E RUR #### [facility] [address] [address] [address] Mirza Sadler Chloride [Moles/Vol] 104 mmol/L Normal 98-107 [facility] Comment on above: Performed By: #### E RUR #### [facility] [address] [address] [address] Mirza Sadler CO2 [Moles/Vol] 22.7 mmol/L Normal 21.0-32.0 [facility] Comment on above: Performed By: #### E RUR #### [facility] [address] [place] [address] Dr. Mirza Sadler Creatinine [Mass/Vol] 1.78 mg/dL Critically high 0.70-1.30 [facility] Comment on above: Performed By: #### E RUR #### [facility] [address] [place] [address] Dr. Mirza Sadler EGFR-AF [place] 46 mL/min/1.73m2 Critically low >=60 [facility] Comment on above: Performed By: #### E RUR #### [facility] [address] [place] [address] Dr. Mirza Sadler EGFR-NON AF [place] 38 mL/min/1.73m2 Critically low >=60 [facility] Comment on above: Performed By: #### E RUR #### [facility] [address] [place] [address] Dr. Mirza Sadler Glucose [Mass/Vol] 121 mg/dL Critically high 74-106 [facility] Comment on above: Performed By: #### E RUR #### [facility] [address] [address] [address] Mirza Sadler Potassium [Moles/Vol] 3.3 mmol/L Critically low 3.5-5.1 [facility] Comment on above: Performed By: #### E RUR #### [facility] [address] [place] [address] Dr. Mirza Sadler Sodium [Moles/Vol] 138 mmol/L Normal 136-145 [facility] Comment on above: Performed By: #### E RUR #### [facility] [address] [place] [address] Dr. Mirza Sadler Urea nitrogen [Mass/Vol] 30.0 mg/dL Critically high 7.0-18.0 [facility] Comment on above: Performed By: #### E RUR #### [facility] [address] [place] [address] Dr. Mirza Sadler Urea nitrogen/Creatinine [Mass ratio] 16.9 mg/mg Normal [facility] Comment on above: Performed By: #### E RUR #### [facility] [address] [place] [address] Dr. Mirza Sadler BNPon 03-12-2022 Natriuretic peptide B (Bld) [Mass/Vol] 7452.0 pg/mL Critically high <=900.0 [facility] Comment on above: Performed By: #### C MP, CMADM #### [facility] [address] [place] [address] Dr. Mirza Sadler CBC AUTO DIFFon 03-12-2022 BASO # 0.0 103/ul Normal 0.0-0.1 [facility] Comment on above: Performed By: #### P T, PTT #### [facility] [address] [place] [address] Dr. Mirza Sadler Basophils/100 WBC (Bld) 0.4 % Normal 0.2-2.0 [facility] Comment on above: Performed By: #### P T, PTT #### [facility] [address] [place] [address] Dr. Mirza Sadler EO # 0.0 103/ul Normal 0.0-0.7 [facility] Comment on above: Performed By: #### P T, PTT #### [facility] [address] [place] [address] Dr. Mirza Sadler Eosinophils/100 WBC (Bld) 0.2 % Critically low 0.9-7.0 [facility] Comment on above: Performed By: #### P T, PTT #### [facility] [address] [place] [address] Dr. Mirza Sadler Erythrocyte distribution width (RBC) [Ratio] 14.6 % Normal 11.0-15.0 [facility] Comment on above: Performed By: #### P T, PTT #### [facility] [address] [place] [address] Dr. Mirza Sadler Hematocrit (Bld) [Volume fraction] 37.8 % Critically low 42.0-54.0 [facility] Comment on above: Performed By: #### P T, PTT #### [facility] [address] [place] [address] Dr. Mirza Sadler Hemoglobin (Bld) [Mass/Vol] 12.2 g/dL Critically low 14.0-18.0 [facility] Comment on above: Performed By: #### P T, PTT #### [facility] [address] [place] [address] Dr. Mirza Sadler IG # 0.03 10e3/ul Normal 0.00-0.03 [facility] Comment on above: Performed By: #### P T, PTT #### [facility] [address] [place] [address] Dr. Mirza Sadler IG % 0.3 % Normal 0.0-0.5 [facility] Comment on above: Performed By: #### P T, PTT #### [facility] [address] [place] [address] Dr. Mirza Sadler LYMPH # 1.2 103/ul Normal 1.2-3.8 [facility] Comment on above: Performed By: #### P T, PTT #### [facility] [address] [place] [address] Dr. Mirza Sadler Lymphocytes/100 WBC (Bld) 11.5 % Critically low 20.5-60.0 [facility] Comment on above: Performed By: #### P T, PTT #### [facility] [address] [place] [address] Dr. Mirza Sadler MANUAL DIFF REQ NO Normal [facility] Comment on above: Performed By: #### P T, PTT #### [facility] [address] [place] [address] Dr. Mirza Sadler MCH (RBC) [Entitic mass] 29.0 pg Normal 25.9-34.0 [facility] Comment on above: Performed By: #### P T, PTT #### [facility] [address] [place] [address] Dr. Mirza Sadler MCHC (RBC) [Mass/Vol] 32.3 g/dL Normal 29.9-35.2 [facility] Comment on above: Performed By: #### P T, PTT #### [facility] [address] [place] [address] Dr. Mirza Sadler MCV (RBC) [Entitic vol] 89.8 fL Normal 80.0-94.0 [facility] Comment on above: Performed By: #### P T, PTT #### [facility] [address] [place] [address] Dr. Mirza Sadler MONO # 0.7 103/ul Normal 0.3-0.8 [facility] Comment on above: Performed By: #### P T, PTT #### [facility] [address] [place] [address] Dr. Mirza Sadler Monocytes/100 WBC (Bld) 6.8 % Normal 1.7-12.0 [facility] Comment on above: Performed By: #### P T, PTT #### [facility] [address] [place] [address] Dr. Mirza Sadler NEUT # 8.5 103/ul Critically high 1.4-6.5 [facility] Comment on above: Performed By: #### P T, PTT #### [facility] [address] [place] [address] Dr. Mirza Sadler Neutrophils/100 WBC (Bld) 80.8 % Critically high 43.0-75.0 [facility] Comment on above: Performed By: #### P T, PTT #### [facility] [address] [place], [place] [address] Dr. Mirza Sadler Platelet mean volume (Bld) [Entitic vol] 9.8 fL Normal 9.5-13.5 [facility] Comment on above: Performed By: #### P T, PTT #### [facility] [address] [place], [place] [address] Dr. Mirza Sadler PLT 165 103/ul Normal 150-450 [facility] Comment on above: Performed By: #### P T, PTT #### [facility] [address] [place], [place] [address] Dr. Mirza Sadler RBC 4.21 106/ul Critically low 4.70-6.10 [facility] Comment on above: Performed By: #### P T, PTT #### [facility] [address] [place], [place] [address] Dr. Mriza Sadler WBC 10.5 103/ul Normal 4.0-11.0 [facility] Comment on above: Performed By: #### P T, PTT #### [facility] [address] [place], [place] [address] Dr. Mirza Sadler ECHOCARDIO M/2D COMPLETEon 1 05-13-2021 ECHOCARDIO M/2D COMPLETE Patient: LANI LIZAMA Exam Date: 03/12/2022 : 1950 Gender:M Ordering : DR OBDULIO ALVA . Admission #: [id number] Family : DR HARLEY CRESPO D.O. Order #: [id number] CLICK HERE TO VIEW EXAM ECHOCARDIOGRAM REPORT PROCEDURE: CARDIO PULMONARY ECHOCARDIO M/2D COMP INDICATIONS: Elevated TROP and BNPChest pain, recent [place], CHF, CBAG x 5, PTCA x 7 [...] M.D. on 03/13/2022 at 17:42 Normal [facility] CHEM 8 (BAS METB)on Anion gap [Moles/Vol] 17.8 mmol/L Normal [facility] Comment on above: Performed By: #### C TANIA, CMADM #### [facility] [address] [place] [address] Dr. Mirza Sadler Calcium [Mass/Vol] 8.6 mg/dL Normal 8.5-10.1 [facility] Comment on above: Performed By: #### C TANIA, CMADM #### [facility] [address] [address] [address] Mirza Sadler Chloride [Moles/Vol] 103 mmol/L Normal 98-107 [facility] Comment on above: Performed By: #### C TANIA, CMADM #### [facility] [address] [place] [address] Dr. Mirza Sadler CO2 [Moles/Vol] 22.3 mmol/L Normal 21.0-32.0 [facility] Comment on above: Performed By: #### C TANIA, CMADM #### [facility] [address] [address] [address] Mirza Sadler Creatinine [Mass/Vol] 1.81 mg/dL Critically high 0.70-1.30 [facility] Comment on above: Performed By: #### C TANIA, CMADM #### [facility] [address] [place] [address] Dr. Mirza Sadler EGFR-AF SINGAPOREAN 45 mL/min/1.73m2 Critically low >=60 [facility] Comment on above: Performed By: #### C TANIA, CMADM #### [facility] [address] [address] [address] Mirza Sadler EGFR-NON AF [place] 37 mL/min/1.73m2 Critically low >=60 [facility] Comment on above: Performed By: #### C TANIA, CMADM #### [facility] [address] [address] [address] Mirza Sadler Glucose [Mass/Vol] 161 mg/dL Critically high 74-106 [facility] Comment on above: Performed By: #### C TANIA, CMADM #### [facility] [address] [address] [address] Mirza Sadler Potassium [Moles/Vol] 4.1 mmol/L Normal 3.5-5.1 [facility] Comment on above: Performed By: #### C MP, CMADM #### [facility] [address] [place] [address] Dr. Mirza Sadler Sodium [Moles/Vol] 139 mmol/L Normal 136-145 [facility] Comment on above: Performed By: #### C MP, CMADM #### [facility] [address] [place] [address] Dr. Mirza Sadler Urea nitrogen [Mass/Vol] 28.0 mg/dL Critically high 7.0-18.0 [facility] Comment on above: Performed By: #### C MP, CMADM #### [facility] [address] [place] [address] Dr. Mirza Sadler Urea nitrogen/Creatinine [Mass ratio] 15.5 mg/mg Normal [facility] Comment on above: Performed By: #### C MP, CMADM #### [facility] [address] [place] [address] Dr. Mirza Sadler TROPONIN, HIGH SENSITIVITYon 03-12-2022 HSTROP 13111.5 pg/mL Critically high 4.0-76.1 [facility] Comment on above: Result Comment: CUT- OFF POINTS HAVE BEEN ESTABLISHED BASED ON THE FOURTH UNIVERSAL DEFINITIONS OF MYOCARDIAL INFARCTION. THE UPPER REFERENCE LIMIT (URL) OF TROPONIN, DEFINED THE 99TH PERCENTILE OF cTnI DISTRIBUTION IN A REFERENCE POPULATION, HAS BEEN CONFIRMED THE DECISION THRESHOLD FOR [place] DIAGNOSIS. Performed By: #### C TANIA, CMADM #### [facility] [address] [place] [address] Dr. Mirza Sadler BNPon 03-11-2022 Natriuretic peptide B (Bld) [Mass/Vol] 1378.0 pg/mL Critically high <=900.0 [facility] Comment on above: Performed By: #### P T, PTT #### [facility] [address] [place] [address] Dr. Mirza Sadler CARDIAC PARUL 3-6on 2 CK [Catalytic activity/Vol] 139 U/L Normal 39-308 [facility] Comment on above: Performed By: #### E RUR #### [facility] [address] [place] [address] Dr. Mirza Sadler CK.MB [Mass/Vol] 7.50 ng/mL Critically high <=3.60 [facility] Comment on above: Performed By: #### E RUR #### [facility] [address] [place] [address] Dr. Mirza Sadler HSTROP 1419.3 pg/mL Critically high 4.0-76.1 [facility] Comment on above: Result Comment: CUT- OFF POINTS HAVE BEEN ESTABLISHED BASED ON THE FOURTH UNIVERSAL DEFINITIONS OF MYOCARDIAL INFARCTION. THE UPPER REFERENCE LIMIT (URL) OF TROPONIN, DEFINED THE 99TH PERCENTILE OF cTnI DISTRIBUTION IN A REFERENCE POPULATION, HAS BEEN CONFIRMED THE DECISION THRESHOLD FOR [place] DIAGNOSIS. Performed By: #### E RUR #### [facility] [address] [place] [address] Dr. Mirza Sadler CBC AUTO DIFFon 03-11-2022 BASO # 0.1 103/ul Normal 0.0-0.1 [facility] Comment on above: Performed By: #### E RUR #### [facility] [address] [place] [address] Dr. Mirza Sadler Basophils/100 WBC (Bld) 0.5 % Normal 0.2-2.0 [facility] Comment on above: Performed By: #### E RUR #### [facility] [address] [place] [address] Dr. Mirza Sadler EO # 0.2 103/ul Normal 0.0-0.7 [facility] Comment on above: Performed By: #### E RUR #### [facility] [address] [place] [address] Dr. Mirza Sadler Eosinophils/100 WBC (Bld) 1.3 % Normal 0.9-7.0 [facility] Comment on above: Performed By: #### E RUR #### [facility] [address] [place] [address] Dr. Mirza Sadler Erythrocyte distribution width (RBC) [Ratio] 14.6 % Normal 11.0-15.0 [facility] Comment on above: Performed By: #### E RUR #### [facility] [address] [place] [address] Dr. Mirza Sadler Hematocrit (Bld) [Volume fraction] 43.1 % Normal 42.0-54.0 [facility] Comment on above: Performed By: #### E RUR #### [facility] [address] [place] [address] Dr. Mirza Sadler Hemoglobin (Bld) [Mass/Vol] 14.2 g/dL Normal 14.0-18.0 [facility] Comment on above: Performed By: #### E RUR #### [facility] [address] [place] [address] Dr. Mirza Sadler IG # 0.07 10e3/ul Critically high 0.00-0.03 [facility] Comment on above: Performed By: #### E RUR #### [facility] [address] [place] [address] Dr. Mirza Sadler IG % 0.5 % Normal 0.0-0.5 [facility] Comment on above: Performed By: #### E RUR #### [facility] [address] [place] [address] Dr. Mirza Sadler LYMPH # 1.3 103/ul Normal 1.2-3.8 [facility] Comment on above: Performed By: #### E RUR #### [facility] [address] [place] [address] Dr. Mirza Sadler Lymphocytes/100 WBC (Bld) 8.6 % Critically low 20.5-60.0 [facility] Comment on above: Performed By: #### E RUR #### [facility] [address] [place] [address] Dr. Mirza Sadler MANUAL DIFF REQ NO Normal [facility] Comment on above: Performed By: #### E RUR #### [facility] [address] [place] [address] Dr. Mirza Sadler MCH (RBC) [Entitic mass] 29.3 pg Normal 25.9-34.0 [facility] Comment on above: Performed By: #### E RUR #### [facility] [address] [place] [address] Dr. Mirza Sadler MCHC (RBC) [Mass/Vol] 32.9 g/dL Normal 29.9-35.2 [facility] Comment on above: Performed By: #### E RUR #### [facility] [address] [address] [address] Mirza Sadler MCV (RBC) [Entitic vol] 88.9 fL Normal 80.0-94.0 [facility] Comment on above: Performed By: #### E RUR #### [facility] [address] [place] [address] Dr. Mirza Sadler MONO # 0.7 103/ul Normal 0.3-0.8 [facility] Comment on above: Performed By: #### E RUR #### [facility] [address] [place] [address] Dr. Mirza Sadler Monocytes/100 WBC (Bld) 4.3 % Normal 1.7-12.0 [facility] Comment on above: Performed By: #### E RUR #### [facility] [address] [place] [address] Dr. Mirza Sadler NEUT # 12.8 103/ul Critically high 1.4-6.5 [facility] Comment on above: Performed By: #### E RUR #### [facility] [address] [place] [address] Dr. Mirza Sadler Neutrophils/100 WBC (Bld) 84.8 % Critically high 43.0-75.0 [facility] Comment on above: Performed By: #### E RUR #### [facility] [address] [place] [address] Dr. Mirza Sadler Platelet mean volume (Bld) [Entitic vol] 9.9 fL Normal 9.5-13.5 [facility] Comment on above: Performed By: #### E RUR #### [facility] [address] [address] [address] Mirza Sadler PLT 201 103/ul Normal 150-450 [facility] Comment on above: Performed By: #### E RUR #### [facility] [address] [place] [address] Dr. Mirza Sadler RBC 4.85 106/ul Normal 4.70-6.10 [facility] Comment on above: Performed By: #### E RUR #### [facility] [address] [address] [address] Mirza Sadler WBC 15.0 103/ul Critically high 4.0-11.0 [facility] Comment on above: Performed By: #### E RUR #### [facility] [address] [place] [address] Dr. Mirza Sadler CULTURE BLOODon 03-11-2022 Microscopic examination of blood, culture Culture Observations: NO GROWTH AT 5 DAYS. Normal [facility] Comment on above: Performed By: #### H STROPN #### [facility] [address] [place] [address] Dr. Mirza Sadler Microscopic examination of blood, culture Culture Observations: NO GROWTH AT 5 DAYS. Normal [facility] Comment on above: Performed By: #### H STROPN #### [facility] [address] [place] [address] Dr. Mirza Sadler Covid-19 PCR ([facility])on 03-01 SARS-CoV-2 (COVID-19) RNA RAMO+probe Ql (Unsp spec) Not detected Normal NOT DETECTED [facility] Comment on above: Result Comment: When diagnostic [...] for this test is supported by the [place] of Health and Human Service's declaration that [...] used). Performed By: #### H STROPN #### [facility] [address] [place] [address] Dr. Mirza Sadler ER URINE PROFILEon 2 Bilirubin Ql (U) Negative Normal NEGATIVE [facility] Comment on above: Performed By: #### E RUR #### [facility] [address] [place] [address] Dr. Mirza Sadler Clarity (U) CLEAR Normal CLEAR [facility] Comment on above: Performed By: #### E RUR #### [facility] [address] [place] [address] Dr. Mirza Sadler Color (U) LT. YELLOW Normal YELLOW [facility] Comment on above: Performed By: #### E RUR #### [facility] [address] [place] [address] Dr. Mirza Sadler ERUAHD A micrscopic examina tion will be performed if indicated. Normal [facility] Comment on above: Performed By: #### E RUR #### [facility] [address] [place] [address] Dr. Mirza Sadler Glucose Ql (U) >1000 Abnormal NEGATIVE [facility] Comment on above: Performed By: #### E RUR #### [facility] [address] [place] [address] Dr. Mirza Sadler Hemoglobin Ql (U) Negative Normal NEGATIVE [facility] Comment on above: Performed By: #### E RUR #### [facility] [address] [place] [address] Dr. Mirza Sadler Ketones Ql (U) 15 mg/dl Abnormal NEGATIVE [facility] Comment on above: Performed By: #### E RUR #### [facility] [address] [place] [address] Dr. Mirza Sadler LEUKOCYTES Negative Normal NEGATIVE [facility] Comment on above: Performed By: #### E RUR #### [facility] [address] [address] [address] Mirza Sadler Nitrite Ql (U) Negative Normal NEGATIVE [facility] Comment on above: Performed By: #### E RUR #### [facility] [address] [place] [address] Dr. Mirza Sadler pH (U) 5.0 [pH] Normal 5-9 [facility] Comment on above: Performed By: #### E RUR #### [facility] [address] [place] [address] Dr. Mirza Sadler SPEC GRAVITY 1.020 Normal 1.005-<=1. 025 [facility] Comment on above: Performed By: #### E RUR #### [facility] [address] [place] [address] Dr. Mirza Sadler UA PROTEIN TRACE Normal NEGATIVE/ TRACE [facility] Comment on above: Performed By: #### E RUR #### [facility] [address] [place] [address] Dr. Mirza Sadler UR MICRO IND NOT INDICATED Normal [facility] Comment on above: Performed By: #### E RUR #### [facility] [address] [place] [address] Dr. Mirza Sadler Urobilinogen Qn (U) 0.2 {Luisito'U}/dL Normal 0.2 - 1. 0 [facility] Comment on above: Performed By: #### E RUR #### [facility] [address] [place] [address] Dr. Mirza Sadler POINT OF CARE GLUCOSEon 03-01 Glucose [Mass/Vol] 161 mg/dL Critically high 74-106 [facility] Comment on above: Performed By: #### P T, PTT #### [facility] [address] [place] [address] Dr. Mirza Sadler PROF 14(COMP METB)on 022 Albumin [Mass/Vol] 4.3 g/dL Normal 3.4-5.0 [facility] Comment on above: Performed By: #### P T, PTT #### [facility] [address] [address] [address] Mirza Sadler Albumin/Globulin [Mass ratio] 1.1 {ratio} Normal [facility] Comment on above: Performed By: #### P T, PTT #### [facility] [address] [address] [address] Mirza Sadler ALP [Catalytic activity/Vol] 156 U/L Critically high 46-116 [facility] Comment on above: Performed By: #### P T, PTT #### [facility] [address] [address] [address] Mirza Sadler ALT [Catalytic activity/Vol] 24 U/L Normal 16-63 [facility] Comment on above: Performed By: #### P T, PTT #### [facility] [address] [address] [address] Mirza Sadler Anion gap [Moles/Vol] 16.7 mmol/L Normal [facility] Comment on above: Performed By: #### P T, PTT #### [facility] [address] [address] [address] Mirza Sadler AST [Catalytic activity/Vol] 21 U/L Normal 15-37 [facility] Comment on above: Performed By: #### P T, PTT #### [facility] [address] [address] [address] Mirza Sadler Bilirubin [Mass/Vol] 1.1 mg/dL Critically high 0.2-1.0 [facility] Comment on above: Performed By: #### P T, PTT #### [facility] [address] [address] [address] Mirza Sadler Calcium [Mass/Vol] 8.8 mg/dL Normal 8.5-10.1 [facility] Comment on above: Performed By: #### P T, PTT #### [facility] [address] [address] [address] Mirza Sadler Chloride [Moles/Vol] 105 mmol/L Normal 98-107 [facility] Comment on above: Performed By: #### P T, PTT #### [facility] [address] [address] [address] Mirza Sadler CO2 [Moles/Vol] 25.0 mmol/L Normal 21.0-32.0 [facility] Comment on above: Performed By: #### P T, PTT #### [facility] [address] [address] [address] Mirza Sadler Creatinine [Mass/Vol] 1.57 mg/dL Critically high 0.70-1.30 [facility] [facility] Comment on above: Performed By: #### P T, PTT #### [facility] [address] [address] [address] Mirza Sadler EGFR-AF SINGAPOREAN 53 mL/min/1.73m2 Critically low >=60 [facility] Comment on above: Performed By: #### P T, PTT #### [facility] [address] [address] [address] Mirza Sadler EGFR-NON AF SINGAPOREAN 44 mL/min/1.73m2 Critically low >=60 [facility] Comment on above: Performed By: #### P T, PTT #### [facility] [address] [address] [address] Mirza Sadler Globulin (S) [Mass/Vol] 3.9 g/dL Normal [facility] Comment on above: Performed By: #### P T, PTT #### [facility] [address] [address] [address] Mirza Sadler Glucose [Mass/Vol] 188 mg/dL Critically high 74-106 [facility] Comment on above: Performed By: #### P T, PTT #### [facility] [address] [address] [address] Mirza Sadler Potassium [Moles/Vol] 3.7 mmol/L Normal 3.5-5.1 [facility] Comment on above: Performed By: #### P T, PTT #### [facility] [address] [address] [address] Mirza Sadler Protein [Mass/Vol] 8.2 g/dL Normal 6.4-8.2 [facility] Comment on above: Performed By: #### P T, PTT #### [facility] [address] [place] [address] Dr. Mirza Sadler Sodium [Moles/Vol] 143 mmol/L Normal 136-145 [facility] Comment on above: Performed By: #### P T, PTT #### [facility] [address] [place] [address] Dr. Mirza Sadler Urea nitrogen [Mass/Vol] 20.0 mg/dL Critically high 7.0-18.0 [facility] Comment on above: Performed By: #### P T, PTT #### [facility] [address] [place] [address] Dr. Mirza Sadler Urea nitrogen/Creatinine [Mass ratio] 12.7 mg/mg Normal [facility] Comment on above: Performed By: #### P T, PTT #### [facility] [address] [place] [address] Dr. Mirza Sadler RESPIRATORY PANEL PLUSon Adenovirus Not detected Normal NOT DETECTED [facility] Comment on above: Performed By: #### P T, PTT #### [facility] [address] [place] [address] Dr. Mirza Ball Parapertusis Not detected Normal NOT DETECTED [facility] Comment on above: Performed By: #### P T, PTT #### [facility] [address] [place] [address] Dr. Mirza Ball Pertussis Not detected Normal NOT DETECTED [facility] Comment on above: Performed By: #### P T, PTT #### [facility] [address] [place] [address] Dr. Mirza Sadler Chlamydia Pneumoniae Not detected Normal NOT DETECTED [facility] Comment on above: Performed By: #### P T, PTT #### [facility] [address] [place] [address] Dr. Mirza Sadler Coronavirus 229E Not detected Normal NOT DETECTED [facility] Comment on above: Performed By: #### P T, PTT #### [facility] [address] [place] [address] Dr. Mirza Sadler Coronavirus HKU1 Not detected Normal NOT DETECTED [facility] Comment on above: Performed By: #### P T, PTT #### [facility] [address] [place] [address] Dr. Mirza Sadler Coronavirus NL63 Not detected Normal NOT DETECTED [facility] Comment on above: Performed By: #### P T, PTT #### [facility] [address] [place] [address] Dr. Mirza Sadler Coronavirus OC43 Not detected Normal NOT DETECTED [facility] Comment on above: Performed By: #### P T, PTT #### [facility] [address] [place] [address] Dr. Mirza Sadler Influenza A H1 2009 Not detected Normal NOT DETECTED [facility] Comment on above: Performed By: #### P T, PTT #### [facility] [address] [place] [address] Dr. Mirza Sadler Influenza A H3 Not detected Normal NOT DETECTED [facility] Comment on above: Performed By: #### P T, PTT #### [facility] [address] [place] [address] Dr. Mirza Sadler Influenza B Not detected Normal NOT DETECTED [facility] Comment on above: Performed By: #### P T, PTT #### [facility] [address] [place] [address] Dr. Mirza Sadler Metapneumovirus Not detected Normal NOT DETECTED [facility] Comment on above: Performed By: #### P T, PTT #### [facility] [address] [place] [address] Dr. Mirza Sadler Mycoplas. Pneumoniae Not detected Normal NOT DETECTED [facility] Comment on above: Performed By: #### P T, PTT #### [facility] [address] [place] [address] Dr. Mirza Sadler Parainfluenza 1 Not detected Normal NOT DETECTED [facility] Comment on above: Performed By: #### P T, PTT #### [facility] [address] [place] [address] Dr. Mirza Sadler Parainfluenza 2 Not detected Normal NOT DETECTED [facility] Comment on above: Performed By: #### P T, PTT #### [facility] [address] [place] [address] Dr. Mirza Sadler Parainfluenza 3 Not detected Normal NOT DETECTED [facility] Comment on above: Performed By: #### P T, PTT #### [facility] [address] [place] [address] Dr. Mirza Sadler Parainfluenza 4 Not detected Normal NOT DETECTED [facility] Comment on above: Performed By: #### P T, PTT #### [facility] [address] [place] [address] Dr. Mirza Sadler Rhino/Enterovirus Not detected Normal NOT DETECTED [facility] Comment on above: Performed By: #### P T, PTT #### [facility] [address] [place] [address] Dr. Mirza Sadler RP2 Header 1 RESPIRATORY PANEL: VIRUSES Normal [facility] Comment on above: Performed By: #### P T, PTT #### [facility] [address] [place] [address] Dr. Mirza Sadler RP2 Header 2 RESPIRATORY PANEL: BACTERIA Normal [facility] Comment on above: Performed By: #### P T, PTT #### [facility] [address] [place] [address] Dr. Mirza Sadler RSV Not detected Normal NOT DETECTED [facility] Comment on above: Performed By: #### P T, PTT #### [facility] [address] [place] [address] Dr. Mirza Sadler SARS-CoV-2 (COVID-19) RNA RAMO+probe Ql (Unsp spec) Not detected Normal NOT DETECTED [facility] Comment on above: Performed By: #### P T, PTT #### [facility] [address] [place] [address] Dr. Mirza Sadler TROPONIN, HIGH SENSITIVITYon 03-11-2022 HSTROP 54791.8 pg/mL Critically high 4.0-76.1 [facility] Comment on above: Result Comment: CUT- OFF POINTS HAVE BEEN ESTABLISHED BASED ON THE FOURTH UNIVERSAL DEFINITIONS OF MYOCARDIAL INFARCTION. THE UPPER REFERENCE LIMIT (URL) OF TROPONIN, DEFINED THE 99TH PERCENTILE OF cTnI DISTRIBUTION IN A REFERENCE POPULATION, HAS BEEN CONFIRMED THE DECISION THRESHOLD FOR [place] DIAGNOSIS. Performed By: #### C MP, CMADM #### [facility] [address], [place] [address] Dr. Mirza Sadler HSTROP 41.0 pg/mL Normal 4.0-76.1 [facility] Comment on above: Result Comment: CUT- OFF POINTS HAVE BEEN ESTABLISHED BASED ON THE FOURTH UNIVERSAL DEFINITIONS OF MYOCARDIAL INFARCTION. THE UPPER REFERENCE LIMIT (URL) OF TROPONIN, DEFINED THE 99TH PERCENTILE OF cTnI DISTRIBUTION IN A REFERENCE POPULATION, HAS BEEN CONFIRMED THE DECISION THRESHOLD FOR [place] DIAGNOSIS. Performed By: #### P T, PTT #### [facility] [address], [place] [address] Dr. Mirza Sadler XR CHEST 1 Von [...] by: Kayden ACEVES Date: 2022-03-11 05:42 Normal [facility] NM MUGAon 03-09-2022 NM MUGA [...] SHANNON LANDIS Date: 2022-03-09 12:26 Normal [facility] CT CHEST WO CONon 03-02-2022 CT CHEST [...] HIGINIO FLANAGAN Date: 2022-03-02 08:52 Normal [facility] Creatinine and Glomerular fi ltration rate.predicted panel (S/P/Bld)Ordered By: Gagan Shahid on 01-17-2022 Creatinine [Mass/Vol] 1.53 mg/dL 0.64-1.27 [facility] Estimated glomerular filtrat ion rate (GFR) non- AmericanOrdered By: Gagan Shahid on 01-17-2022 GFR/1.73 sq M.predicted among non-blacks MDRD (S/P/Bld) [Vol rate/Area] 45 mL/Min [facility] Glucose Glucometer (BldC) [M ass/Vol]Ordered By: Gagan Shahid on 01-17-2022 Glucose [Mass/Vol] 178 mg/dL [facility] Comment on above: Random Glucose Refer ence Range is dependent on time and content of last meal. Glucose of more than 200 mg/dL in a nonstressed, ambulatory subject supports the diagnosis of Diabetes Mellitus. No Panel InformationOrdered By: Gagan Shahid on 01-17-2022 Estimated GFR () 55 mL/Min [facility] Comment on above: GFR estimated refere nce range: According to KDOQI guidelines, <60 ml/min/1.73m2 is sufficient to diagnose a patient with chronic kidney disease. Pharmacy Creatinine Clearance (Chem 42.00 [facility] Serum or plasma anion gap de terminationOrdered By: Gagan Shahid on 01-17-2022 Anion gap [Moles/Vol] 12.0 mmol/L 6.0-15.0 [facility] Serum or plasma calcium radha urement (mass/volume)Ordered By: Gagan Shahid on 01-17-2022 Calcium [Mass/Vol] 9.0 mg/dL 8.2-10.2 [facility] Serum or plasma chloride shanae surement (moles/volume)Ordered By: Gagan Shahid on 01-17-2022 Chloride [Moles/Vol] 107 mmol/L 95-114 [facility] Serum or plasma glucose radha urement (mass/volume)Ordered By: Gagan Shahid on 01-17-2022 Glucose [Mass/Vol] 142 mg/dL 70-100 [facility] Comment on above: ADA recommended refe rence rangeRandom Glucose Reference Range is dependent on time and content of last meal. Glucose of more than 200 mg/dL in a nonstressed, ambulatory subject supports the diagnosis of Diabetes Mellitus. Serum or plasma potassium me asurement (moles/volume)Ordered By: Gagan Shahid on 01-17-2022 Potassium [Moles/Vol] 3.5 mmol/L 3.5-5.1 [facility] Serum or plasma sodium measu rement (moles/volume)Ordered By: Gagan Shahid on 01-17-2022 Sodium [Moles/Vol] 137 mmol/L 136-146 [facility] Serum or plasma total carbon dioxide measurement (moles/volume)Ordered By: Gagan Shahid on 01-17-2022 CO2 [Moles/Vol] 21.5 mmol/L 22.0-30.0 [facility] Serum or plasma urea nitroge n measurement (mass/volume)Ordered By: Gagan Shahid on 01-17-2022 Urea nitrogen [Mass/Vol] 24 mg/dL 9- [facility] Activated partial thrombopla stin time (aPTT) in platelet poor plasma by coagulation aOrdered By: Gagan Shahid on 01-16-2022 aPTT Coag (PPP) [Time] 42.1 s 25.1-36.5 [facility] Basophils Auto (Bld) [#/Vol] Ordered By: Gagan Shahid on 01-16-2022 Basophils (Bld) [#/Vol] 0.0 10*3/uL 0.0-0.2 [facility] Basophils/100 WBC Auto (Bld) Ordered By: Gagan Shahid on 01-16-2022 Basophils/100 WBC (Bld) 0.5 % . [facility] Creatine kinase [Enzymatic a ctivity/volume] in Serum or PlasmaOrdered By: Gagan Shahid on 01-16-2022 CK [Catalytic activity/Vol] 92 U/L [facility] Eosinophils Auto (Bld) [#/Vo l]Ordered By: Gagan Shahid on 01-16-2022 Eosinophils (Bld) [#/Vol] 0.2 10*3/uL 0.0-0.45 [facility] Eosinophils/100 WBC Auto (Bl d)Ordered By: Gagan Shahid on 01-16-2022 Eosinophils/100 WBC (Bld) 2.4 % . [facility] Erythrocyte distribution wid th Auto (RBC) [Ratio]Ordered By: Gagan Shahid on 01-16-2022 Erythrocyte distribution width (RBC) [Ratio] 14.6 % 12.0-14.8 [facility] Hematocrit Auto (Bld) [Volum e fraction]Ordered By: Gagan Shahid on 01-16-2022 Hematocrit (Bld) [Volume fraction] 43.4 % 38.8-50.0 [facility] Hemoglobin [Mass/volume] in BloodOrdered By: Gagan Shahid on 01-16-2022 Hemoglobin (Bld) [Mass/Vol] 14.4 g/dL 13.0-17.0 [facility] - Chemistry and C hemistry - challengeOrdered By: Gagan Shahid on 01-16-2022 Magnesium [Mass/Vol] 1.9 mg/dL 1.6-2.6 [facility] - CoagulationOrde red By: Gagan Shahid on 01-16-2022 PT Coag (PPP) [Time] 15.7 s 9.0-12.9 [facility] - Hematology and Cell countsOrdered By: Gagan Shahid on 01-16-2022 Nucleated RBC/100 WBC (Bld) [Ratio] 0.1 % 0-0.5 [facility] Leukocytes [#/volume] in Blo od by Automated countOrdered By: Gagan Shahid on 01-16-2022 WBC (Bld) [#/Vol] 8.2 10*3/uL 4.5-11.0 [facility] Lymphocytes Auto (Bld) [#/Vo l]Ordered By: Gagan Shahid on 01-16-2022 Lymphocytes (Bld) [#/Vol] 1.6 10*3/uL 1.00-4.8 [facility] Lymphocytes/100 WBC Auto (Bl d)Ordered By: Gagan Shahid on 01-16-2022 Lymphocytes/100 WBC (Bld) 19.5 % . [facility] MCH Auto (RBC) [Entitic mass ]Ordered By: Gagan Shahid on 01-16-2022 MCH (RBC) [Entitic mass] 29.4 pg 27.5-35.2 [facility] MCHC Auto (RBC) [Mass/Vol]Or dered By: Gagan Shahid on 01-16-2022 MCHC (RBC) [Mass/Vol] 33.2 g/dL 32.5-35.6 [facility] MCV Auto (RBC) [Entitic vol] Ordered By: Gagan Shahid on 01-16-2022 MCV (RBC) [Entitic vol] 88.5 fL 83.5-101 [facility] Monocytes Auto (Bld) [#/Vol] Ordered By: Gagan Shahid on 01-16-2022 Monocytes (Bld) [#/Vol] 0.8 10*3/uL 0.0-0.8 [facility] Monocytes/100 WBC Auto (Bld) Ordered By: Gagan Shahid on 01-16-2022 Monocytes/100 WBC (Bld) 9.1 % . [facility] Neutrophils Auto (Bld) [#/Vo l]Ordered By: Gagan Shahid on 01-16-2022 Neutrophils (Bld) [#/Vol] 5.6 10*3/uL 1.8-7.7 [facility] Neutrophils/100 WBC Auto (Bl d)Ordered By: Gagan Shahid on 01-16-2022 Neutrophils/100 WBC (Bld) 68.5 % . [facility] No Panel InformationOrdered By: Gagan Shahid on 01-16-2022 Bedside Glucose Comment Glu2: cleaned meter [facility] Platelet mean volume Auto (B ld) [Entitic vol]Ordered By: Gagan Shahid on 01-16-2022 Platelet mean volume (Bld) [Entitic vol] 8.4 fL 6.6-10.1 [facility] Platelet poor plasma interna tional normalized ratio (INR) by coagulation assay (relatOrdered By: Gagan Shahid on 01-16-2022 INR Coag (PPP) [Relative time] 1.4 {INR} [facility] Comment on above: INR Therapeutic Rang [...] 01-16-2022 Platelets (Bld) [#/Vol] 178 10*3/uL 150-450 [facility] RBC Auto (Bld) [#/Vol]Ordere d By: Gagan Shahid on 01-16-2022 RBC (Bld) [#/Vol] 4.90 10*6/uL 3.90-5.60 [facility] Serum or plasma creatine kin ase MB (CKMB)/total creatine kinase (CK) ratio by calculaOrdered By: Gagan Shahid on 01-16-2022 CK.MB Calc [Catalytic fraction] 3.2 % 0.00-2.50 [facility] Serum or plasma creatine kin ase MB measurement (mass/volume)Ordered By: Gagan Shahid on 01-16-2022 CK.MB [Mass/Vol] 3.0 ng/mL 0.6-6.3 [facility] Troponin I.cardiac [Mass/vol ume] in Serum or Plasma by High sensitivity methodOrdered By: Gagan Shahid on 01-16-2022 Troponin I.cardiac High sensitivity method [Mass/Vol] 525 pg/mL 0-20 [facility] Comment on above: Critical valueresult calledat 1844 on 01/16/22 BNPon 01-15-2022 Natriuretic peptide B (Bld) [Mass/Vol] 1012.0 pg/mL Critically high <=900.0 [facility] Comment on above: Performed By: #### B BRIM RAISER #### [facility] [address] [address] [address] Mirza Sadler CARDIAC PARUL ADMITon 022 CK [Catalytic activity/Vol] 93 U/L Normal 39-308 [facility] Comment on above: Performed By: #### C TEGAN MARIN #### [facility] [address], [place] [address] Dr. Mirza Sadler CK.MB [Mass/Vol] 1.67 ng/mL Normal <=3.60 [facility] Comment on above: Performed By: #### C TEGAN MARIN #### [facility] [address] [address] [address] Mirza Sadler HSTROP 17.1 pg/mL Normal 4.0-76.1 [facility] Comment on above: Result Comment: CUT- OFF POINTS HAVE BEEN ESTABLISHED BASED ON THE FOURTH UNIVERSAL DEFINITIONS OF MYOCARDIAL INFARCTION. THE UPPER REFERENCE LIMIT (URL) OF TROPONIN, DEFINED THE 99TH PERCENTILE OF cTnI DISTRIBUTION IN A REFERENCE POPULATION, HAS BEEN CONFIRMED THE DECISION THRESHOLD FOR [place] DIAGNOSIS. Performed By: #### C TANIA, CMADM #### [facility] [address] [place] [address] Dr. Mirza Sadler RACHEL 63 ng/mL Normal 16-96 [facility] Comment on above: Performed By: #### C TANIA, CMADM #### [facility] [address] [place] [address] Dr. Mirza Sadler CBC AUTO DIFFon 01-15-2022 BASO # 0.1 103/ul Normal 0.0-0.1 [facility] Comment on above: Performed By: #### E RUR #### [facility] [address] [place] [address] Dr. Mirza Sadler Basophils/100 WBC (Bld) 0.9 % Normal 0.2-2.0 [facility] Comment on above: Performed By: #### E RUR #### [facility] [address] [place] [address] Dr. Mirza Sadler EO # 0.3 103/ul Normal 0.0-0.7 [facility] Comment on above: Performed By: #### E RUR #### [facility] [address] [place] [address] Dr. Mirza Sadler Eosinophils/100 WBC (Bld) 3.1 % Normal 0.9-7.0 [facility] Comment on above: Performed By: #### E RUR #### [facility] [address] [place] [address] Dr. Mirza Sadler Erythrocyte distribution width (RBC) [Ratio] 14.2 % Normal 11.0-15.0 [facility] Comment on above: Performed By: #### E RUR #### [facility] [address] [place] [address] Dr. Mirza Sadler Hematocrit (Bld) [Volume fraction] 44.4 % Normal 42.0-54.0 [facility] Comment on above: Performed By: #### E RUR #### [facility] [address] [address] [address] Mirza Sadler Hemoglobin (Bld) [Mass/Vol] 14.4 g/dL Normal 14.0-18.0 [facility] Comment on above: Performed By: #### E RUR #### [facility] [address] [address] [address] Mirza Sadler IG # 0.03 10e3/ul Normal 0.00-0.03 [facility] Comment on above: Performed By: #### E RUR #### [facility] [address] [place] [address] Dr. Mirza Sadler IG % 0.3 % Normal 0.0-0.5 [facility] Comment on above: Performed By: #### E RUR #### [facility] [address] [place] [address] Dr. Mirza Sadler LYMPH # 1.6 103/ul Normal 1.2-3.8 [facility] Comment on above: Performed By: #### E RUR #### [facility] [address] [place] [address] Dr. Mirza Sadler Lymphocytes/100 WBC (Bld) 16.8 % Critically low 20.5-60.0 [facility] Comment on above: Performed By: #### E RUR #### [facility] [address] [place] [address] Dr. Mirza Sadler MANUAL DIFF REQ NO Normal [facility] Comment on above: Performed By: #### E RUR #### [facility] [address] [place] [address] Dr. Mirza Sadler MCH (RBC) [Entitic mass] 29.4 pg Normal 25.9-34.0 [facility] Comment on above: Performed By: #### E RUR #### [facility] [address] [place] [address] Dr. Mirza Sadler MCHC (RBC) [Mass/Vol] 32.4 g/dL Normal 29.9-35.2 [facility] Comment on above: Performed By: #### E RUR #### [facility] [address] [address] [address] Mirza Sadler MCV (RBC) [Entitic vol] 90.6 fL Normal 80.0-94.0 [facility] Comment on above: Performed By: #### E RUR #### [facility] [address] [address] [address] Mirza Sadler MONO # 0.5 103/ul Normal 0.3-0.8 [facility] Comment on above: Performed By: #### E RUR #### [facility] [address] [address] [address] Mirza Sadler Monocytes/100 WBC (Bld) 5.9 % Normal 1.7-12.0 [facility] Comment on above: Performed By: #### E RUR #### [facility] [address] [place] [address] Dr. Mirza Sadler NEUT # 6.7 103/ul Critically high 1.4-6.5 [facility] Comment on above: Performed By: #### E RUR #### [facility] [address] [place] [address] Dr. Mirza Sadler Neutrophils/100 WBC (Bld) 73.0 % Normal 43.0-75.0 [facility] Comment on above: Performed By: #### E RUR #### [facility] [address] [place] [address] Dr. Mirza Sadler Platelet mean volume (Bld) [Entitic vol] 10.0 fL Normal 9.5-13.5 [facility] Comment on above: Performed By: #### E RUR #### [facility] [address] [place] [address] Dr. Mirza Sadler PLT 190 103/ul Normal 150-450 [facility] Comment on above: Performed By: #### E RUR #### [facility] [address] [place] [address] Dr. Mirza Sadler RBC 4.90 106/ul Normal 4.70-6.10 [facility] Comment on above: Performed By: #### E RUR #### [facility] [address], [place] [address] Dr. Mirza Sadler WBC 9.2 103/ul Normal 4.0-11.0 [facility] Comment on above: Performed By: #### E RUR #### [facility] [address], [place] [address] CHEST WO CONon [...] HIGINIO FLANAGAN Date: 2022-01-15 08:19 Normal [facility] CULTURE BLOODon 01-15-2022 Microscopic examination of blood, culture Culture Observations: NO GROWTH AT 5 DAYS. Normal [facility] Comment on above: Performed By: #### H STROPN #### [facility] [address] [place] [address] Dr. Mirza Sadler Microscopic examination of blood, culture Culture Observations: NO GROWTH AT 5 DAYS. Normal [facility] Comment on above: Performed By: #### B LDCX1 #### [facility] [address] [place] [address] Dr. Mirza Sadler [facility] SARS-CoV-2 (COVID-19) RNA RAMO+probe Ql (Unsp spec) Not detected Normal NOT DETECTED [facility] Comment on above: Result Comment: When diagnostic [...] for this test is supported by the Meteorological Aide of Health and Human Service's declaration that [...] longer be used). Performed By: #### B BRIM RAISER #### [facility] [address] [place] [address] Dr. Mirza Sadler ER URINE PROFILEon 2 Bilirubin Ql (U) Negative Normal NEGATIVE [facility] Comment on above: Performed By: #### C TEGAN MARIN #### [facility] Laboratory [address] [place] [address] Dr. Mirza Sadler Clarity (U) CLEAR Normal CLEAR [facility] Comment on above: Performed By: #### C MP, CMADM #### [facility] Laboratory [address] [address] [address] Mirza Sadler Color (U) LT. YELLOW Normal YELLOW [facility] Comment on above: Performed By: #### C TANIA, CMADM #### [facility] Laboratory [address] [place] [address] Dr. Mirza BUSTILLO A micrscopic examina tion will be performed if indicated. Normal [facility] Comment on above: Performed By: #### C TANIA, CMADM #### [facility] Laboratory [address] [place] [address] Dr. Mirza Sadler Glucose Ql (U) >1000 Abnormal NEGATIVE [facility] Comment on above: Performed By: #### C TNAIA, CMADM #### [facility] Laboratory [address] [place] [address] Dr. Mirza Sadler Hemoglobin Ql (U) Negative Normal NEGATIVE [facility] Comment on above: Performed By: #### C TANIA, CMADM #### [facility] Laboratory [address] [address] [address] Mirza Sadler Ketones Ql (U) TRACE Abnormal NEGATIVE [facility] Comment on above: Performed By: #### C TANIA, CMADM #### [facility] Laboratory [address] [address] [address] Mirza Sadler LEUKOCYTES Negative Normal NEGATIVE [facility] Comment on above: Performed By: #### C TANIA, CMADM #### [facility] Laboratory [address] [address] [address] Mirza Sadler Nitrite Ql (U) Negative Normal NEGATIVE [facility] Comment on above: Performed By: #### C TANIA, CMADM #### [facility] Laboratory [address] [address] [address] Mirza Sadler pH (U) 5.5 [pH] Normal 5-9 [facility] Comment on above: Performed By: #### C TANIA, CMADM #### [facility] Laboratory [address] [place] [address] Dr. Mirza Sadler SPEC GRAVITY 1.020 Normal 1.005-<=1. 025 [facility] Comment on above: Performed By: #### C MP, CMADM #### [facility] Laboratory [address] [place] [address] Dr. Mirza Sadler UA PROTEIN TRACE Normal NEGATIVE/ TRACE [facility] Comment on above: Performed By: #### C MP, CMADM #### [facility] Laboratory [address] [place] [address] Dr. Mirza Sadler UR MICRO IND NOT INDICATED Normal [facility] Comment on above: Performed By: #### C MP, CMADM #### [facility] Laboratory [address] [place] [address] Dr. Mirza Sadler Urobilinogen Qn (U) 0.2 {Luisito'U}/dL Normal 0.2 - 1. 0 [facility] Comment on above: Performed By: #### C TANIA, CMADM #### [facility] Laboratory [address] [place] [address] Dr. Mirza Sadler LACTATE/LACTIC ACIDon 2021 Lactate [Moles/Vol] 0.8 mmol/L Normal 0.4-1.9 [facility] Comment on above: Performed By: #### P T, PTT #### [facility] Laboratory [address] [place] [address] Dr. Mirza Sadler PROF 14(COMP METB)on 022 Albumin [Mass/Vol] 4.4 g/dL Normal 3.4-5.0 [facility] Comment on above: Performed By: #### C TANIA, CMADM #### [facility] Laboratory [address] [place] [address] Dr. Mirza Sadler Albumin/Globulin [Mass ratio] 1.3 {ratio} Normal [facility] Comment on above: Performed By: #### C TANIA, CMADM #### [facility] Laboratory [address] [place] [address] Dr. Mirza Sadler ALP [Catalytic activity/Vol] 155 U/L Critically high 46-116 [facility] Comment on above: Performed By: #### C TANIA, CMADM #### [facility] Laboratory [address] [place] [address] Dr. Mirza Sadler ALT [Catalytic activity/Vol] 27 U/L Normal 16-63 [facility] Comment on above: Performed By: #### C TANIA, CMADM #### [facility] Laboratory [address] [place] [address] Dr. Mirza Sadler Anion gap [Moles/Vol] 14.9 mmol/L Normal [facility] Comment on above: Performed By: #### C TANIA, CMADM #### [facility] Laboratory [address] [place] [address] Dr. Mirza Sadler AST [Catalytic activity/Vol] 22 U/L Normal 15-37 [facility] Comment on above: Performed By: #### C TANIA, DOMDM #### [facility] Laboratory [address] [place] [address] Dr. Mirza Sadler Bilirubin [Mass/Vol] 0.8 mg/dL Normal 0.2-1.0 [facility] Comment on above: Performed By: #### C TANIA, CMADM #### [facility] Laboratory [address] [place] [address] Dr. Mirza Sadler Calcium [Mass/Vol] 8.8 mg/dL Normal 8.5-10.1 [facility] Comment on above: Performed By: #### C DOM MARINDM #### [facility] Laboratory [address] [place] [address] Dr. Mirza Sadler Chloride [Moles/Vol] 106 mmol/L Normal 98-107 [facility] Comment on above: Performed By: #### C TANIA, CMADM #### [facility] Laboratory [address] [place] [address] Dr. Mirza Sadler CO2 [Moles/Vol] 23.9 mmol/L Normal 21.0-32.0 [facility] Comment on above: Performed By: #### C TANIA, DOMDM #### [facility] Laboratory [address] [place] [address] Dr. Mirza Sadler Creatinine [Mass/Vol] 1.51 mg/dL Critically high 0.70-1.30 [facility] Comment on above: Performed By: #### C TANIA, CMADM #### [facility] Laboratory [address] [place] [address] Dr. Mirza Sadler EGFR-AF SINGAPOREAN 56 mL/min/1.73m2 Critically low >=60 [facility] Comment on above: Performed By: #### C MP, CMADM #### [facility] Laboratory [address] [address] [address] Mirza Sadler EGFR-NON AF S[place]APOREAN 46 mL/min/1.73m2 Critically low >=60 [facility] Comment on above: Performed By: #### C MP, CMADM #### [facility] Laboratory [address] [address] [address] Mirza Sadler Globulin (S) [Mass/Vol] 3.4 g/dL Normal [facility] Comment on above: Performed By: #### C TANIA, CMADM #### [facility] Laboratory [address] [address] [address] Mirza Sadler Glucose [Mass/Vol] 189 mg/dL Critically high 74-106 [facility] Comment on above: Performed By: #### C TANIA, CMADM #### [facility] Laboratory [address] [address] [address] Mirza Sadler Potassium [Moles/Vol] 3.8 mmol/L Normal 3.5-5.1 [facility] Comment on above: Performed By: #### C TANIA, CMADM #### [facility] Laboratory [address] [address] [address] Mirza Sadler Protein [Mass/Vol] 7.8 g/dL Normal 6.4-8.2 [facility] Comment on above: Performed By: #### C TANAI, CMADM #### [facility] Laboratory [address] [address] [address] Mirza Sadler Sodium [Moles/Vol] 141 mmol/L Normal 136-145 [facility] Comment on above: Performed By: #### C TANIA, CMADM #### [facility] Laboratory [address] [address] [address] Mirza Sadler Urea nitrogen [Mass/Vol] 22.0 mg/dL Critically high 7.0-18.0 [facility] Comment on above: Performed By: #### C MP, CMADM #### [facility] Laboratory [address] [place] [address] Dr. Mirza Sadler Urea nitrogen/Creatinine [Mass ratio] 14.6 mg/mg Normal [facility] Comment on above: Performed By: #### C TEGAN MARIN #### [facility] Laboratory [address] [place] [address] Dr. Mirza Sadler PROTIMEon 01-15-2022 INR Coag (PPP) [Relative time] 1.10 {INR} Normal [facility] Comment on above: Performed By: #### E RUR #### [facility] Laboratory [address] [place] [address] Dr. Mirza Sadler INR GUIDELINES SEE BELOW Normal [facility] Comment on above: Result Comment: RIVKA RED INR: 2.0 - 3.0 CONDITIONS NOT LISTED BELOW 2.5 - 3.5 FOR PROSTHETIC HEART VALVE REPLACEMENT 2.5 - 3.5 RECURRENT THROMBOSIS Performed By: #### E RUR #### [facility] Laboratory [address] [place] [address] Dr. Mirza Sadler PT Coag (PPP) [Time] 11.8 s Critically high 9.0-11.6 [facility] Comment on above: Performed By: #### E RUR #### [facility] Laboratory [address] [place] [address] Dr. Mirza Sadler PTTon 01-15-2022 aPTT Coag (Bld) [Time] 29.0 s Normal 22.3-36.2 [facility] Comment on above: Performed By: #### E RUR #### [facility] Laboratory [address] [place] [address] Dr. Mirza Sadler TROPONIN, HIGH SENSITIVITYon 01-15-2022 HSTROP 1786.2 pg/mL Critically high 4.0-76.1 [facility] Comment on above: Result Comment: CUT- OFF POINTS HAVE BEEN ESTABLISHED BASED ON THE FOURTH UNIVERSAL DEFINITIONS OF MYOCARDIAL INFARCTION. THE UPPER REFERENCE LIMIT (URL) OF TROPONIN, DEFINED THE 99TH PERCENTILE OF cTnI DISTRIBUTION IN A REFERENCE POPULATION, HAS BEEN CONFIRMED THE DECISION THRESHOLD FOR [place] DIAGNOSIS. Performed By: #### H STROPN #### [facility] Laboratory [address] [place], [place] [address] Dr. Mirza Sadler HSTROP 669.3 pg/mL Critically high 4.0-76.1 [facility] Comment on above: Result Comment: CUT- OFF POINTS HAVE BEEN ESTABLISHED BASED ON THE FOURTH UNIVERSAL DEFINITIONS OF MYOCARDIAL INFARCTION. THE UPPER REFERENCE LIMIT (URL) OF TROPONIN, DEFINED THE 99TH PERCENTILE OF cTnI DISTRIBUTION IN A REFERENCE POPULATION, HAS BEEN CONFIRMED THE DECISION THRESHOLD FOR [place] DIAGNOSIS. Performed By: #### H STROPN #### [facility] Laboratory [address] [place], [place] [address] Dr. Mirza Sadler XR CHEST 1 Von [...] WAYNE CASEY Date: 2022-01-15 06:42 Normal [facility] A1C HEMOGLOBINon 12-18-2021 HbA1c (Bld) [Mass fraction] 6.2 % [employer] Other Glucose - FINGER STICKon Glucose [Mass/Vol] 120 mg/dL [employer] Other HbA1c (Bld) [Mass fraction]o n 12-18-2021 A1C HEMOGLOBIN [employer] Other XR CHEST 2 Von 12-08-2021 XR [...] HIGINIO FLANAGAN Date: 2021-12-08 16:07 Normal [facility] PTH INTACTon 12-01-2021 PTH, Intact 15 pg/mL Normal 15-65 [facility] Comment on above: Performed By: #### C MP, CMADM #### [facility] Laboratory [address] [address] [address] Mirza Sadler VIT D 25-OH LABC[employer]Pon 2021 Vitamin D, 25-Hydroxy 41.2 ng/mL Normal 30.0-100.0 [facility] Comment on above: Result Comment: [place] min D deficiency has been defined by the [place] of Medicine and an Endocrine Society practice guideline as a level of serum 25-OH vitamin D less than 20 ng/mL (1,2). The Endocrine Society went on to further define vitamin D insufficiency as a level between 21 and 29 ng/mL (2). 1. IOM ([place] of Medicine). 2010. Dietary reference intakes for calcium and D. [place]: The National Academies Press. 2. Noemy MF, Sonam [place], Jake HERMOSILLO, et al. Evaluation, treatment, and prevention of vitamin D deficiency: an Endocrine Society clinical practice guideline. JCEM. 2010; 96(7):1911-30. Performed By: #### P T, PTT #### [facility] Laboratory [address] [address] [address] Mirza Sadler HEMOGRAM AND PLATELon 2021 Hematocrit (Bld) [Volume fraction] 39.9 % Critically low 42.0-54.0 [facility] Comment on above: Performed By: #### P T, PTT #### [facility] Laboratory [address] [address] [address] Mirza Sadler Hemoglobin (Bld) [Mass/Vol] 13.1 g/dL Critically low 14.0-18.0 [facility] Comment on above: Performed By: #### P T, PTT #### [facility] Laboratory [address] [address] [address] Mirza Sadler MCH (RBC) [Entitic mass] 29.5 pg Normal 25.9-34.0 [facility] Comment on above: Performed By: #### P T, PTT #### [facility] Laboratory [address] [place] [address] Dr. Mirza Sadler MCHC (RBC) [Mass/Vol] 32.8 g/dL Normal 29.9-35.2 [facility] Comment on above: Performed By: #### P T, PTT #### [facility] Laboratory [address] [address] [address] Mirza Sadler MCV (RBC) [Entitic vol] 89.9 fL Normal 80.0-94.0 [facility] Comment on above: Performed By: #### P T, PTT #### [facility] Laboratory [address] [place] [address] Dr. Mirza Sadler PLT 182 103/ul Normal 150-450 [facility] Comment on above: Performed By: #### P T, PTT #### [facility] Laboratory [address] [place] [address] Dr. Mirza Sadler RBC 4.44 106/ul Critically low 4.70-6.10 [facility] Comment on above: Performed By: #### P T, PTT #### [facility] Laboratory [address] [place] [address] Dr. Mirza Sadler WBC 6.9 103/ul Normal 4.0-11.0 [facility] Comment on above: Performed By: #### P T, PTT #### [facility] Laboratory [address] [place] [address] Dr. Mirza Sadler MAGNESIUMon 11-30-2021 Magnesium [Mass/Vol] 1.8 mg/dL Normal 1.8-2.4 [facility] Comment on above: Performed By: #### P T, PTT #### [facility] Laboratory [address] [place] [address] Dr. Mirza Sadler RENAL FUNCTION PANELon 11-30 Albumin [Mass/Vol] 3.9 g/dL Normal 3.4-5.0 [facility] Comment on above: Performed By: #### P T, PTT #### [facility] Laboratory [address] [place] [address] Dr. Mirza Sadler Calcium [Mass/Vol] 9.0 mg/dL Normal 8.5-10.1 [facility] Comment on above: Performed By: #### P T, PTT #### [facility] Laboratory [address] [place] [address] Dr. Mirza Sadler Chloride [Moles/Vol] 107 mmol/L Normal 98-107 [facility] Comment on above: Performed By: #### P T, PTT #### [facility] Laboratory [address] [place] [address] Dr. Mirza Sadler CO2 [Moles/Vol] 26.2 mmol/L Normal 21.0-32.0 [facility] Comment on above: Performed By: #### P T, PTT #### [facility] Laboratory [address] [place] [address] Dr. Mirza Sadler Creatinine [Mass/Vol] 1.55 mg/dL Critically high 0.70-1.30 [facility] Comment on above: Performed By: #### P T, PTT #### [facility] Laboratory [address] [place] [address] Dr. Mirza Sadler EGFR-AF [place]AN 54 mL/min/1.73m2 Critically low >=60 [facility] Comment on above: Performed By: #### P T, PTT #### [facility] Laboratory [address] [place] [address] Dr. Mirza Sadler EGFR-NON AF [place] 45 mL/min/1.73m2 Critically low >=60 [facility] Comment on above: Performed By: #### P T, PTT #### [facility] Laboratory [address] [place] [address] Dr. Mirza Sadler Glucose [Mass/Vol] 166 mg/dL Critically high 74-106 [facility] Comment on above: Performed By: #### P T, PTT #### [facility] Laboratory [address] [place] [address] Dr. Mirza Sadler Phosphate [Mass/Vol] 3.7 mg/dL Normal 2.6-4.7 [facility] Comment on above: Performed By: #### P T, PTT #### [facility] Laboratory [address] [place] [address] Dr. Mirza Sadler Potassium [Moles/Vol] 4.2 mmol/L Normal 3.5-5.1 [facility] Comment on above: Performed By: #### P T, PTT #### [facility] Laboratory [address] [place] [address] Dr. Mirza Sadler Sodium [Moles/Vol] 142 mmol/L Normal 136-145 [facility] Comment on above: Performed By: #### P T, PTT #### [facility] Laboratory [address] [place] [address] Dr. Mirza Sadler Urea nitrogen [Mass/Vol] 16.0 mg/dL Normal 7.0-18.0 [facility] Comment on above: Performed By: #### P T, PTT #### [facility] Laboratory [address] [place] [address] Dr. Mirza Sadler UA RANDOM W/MICROSCOPICon BACTERIA NONE SEEN Normal NONE SEEN [facility] Comment on above: Performed By: #### B LDCX2 #### [facility] Laboratory [address] [place] [address] Dr. Mirza Sadler Bilirubin Ql (U) Negative Normal NEGATIVE [facility] Comment on above: Performed By: #### B LDCX2 #### [facility] Laboratory [address] [place] [address] Dr. Mirza Sadler CAST NONE SEEN Normal NONE SEEN [facility] Comment on above: Performed By: #### B LDCX2 #### [facility] Laboratory [address] [place] [address] Dr. Mirza Sadler Clarity (U) CLEAR Normal CLEAR [facility] Comment on above: Performed By: #### B LDCX2 #### [facility] Laboratory [address] [place] [address] Dr. Mirza Sadler Color (U) LT. YELLOW Normal YELLOW [facility] Comment on above: Performed By: #### B LDCX2 #### [facility] Laboratory [address] [address] [address] Mirza Sadler Crystals LM Nom (Urine sed) NONE SEEN Normal NONE SEEN [facility] Comment on above: Performed By: #### B LDCX2 #### [facility] Laboratory [address] [place] [address] Dr. Mirza Sadler Epithelial cells LM Ql (Urine sed) RARE Normal NONE SEEN /RARE [facility] Comment on above: Performed By: #### B LDCX2 #### [facility] Laboratory [address] [place] [address] Dr. Mirza Sadler Glucose Ql (U) >1000 Abnormal NEGATIVE [facility] Comment on above: Performed By: #### B LDCX2 #### [facility] Laboratory [address] [place] [address] Dr. Mriza Sadler Hemoglobin Ql (U) Negative Normal NEGATIVE [facility] Comment on above: Performed By: #### B LDCX2 #### [facility] Laboratory [address] [place] [address] Dr. Mirza Sadler Ketones Ql (U) Negative Normal NEGATIVE [facility] Comment on above: Performed By: #### B LDCX2 #### [facility] Laboratory [address] [place] [address] Dr. Mirza Sadler LEUKOCYTES Negative Normal NEGATIVE [facility] Comment on above: Performed By: #### B LDCX2 #### [facility] Laboratory [address] [place] [address] Dr. Mirza Sadler MUCOUS NONE SEEN Normal NONE SEEN [facility] Comment on above: Performed By: #### B LDCX2 #### [facility] Laboratory [address] [place] [address] Dr. Mirza Sadler Nitrite Ql (U) Negative Normal NEGATIVE [facility] Comment on above: Performed By: #### B LDCX2 #### [facility] Laboratory [address] [place] [address] Dr. Mirza Sadler pH (U) 5.5 [pH] Normal 5-9 [facility] Comment on above: Performed By: #### B LDCX2 #### [facility] Laboratory [address] [place] [address] Dr. Mirza Sadler RBC NONE SEEN Abnormal 0-2 [facility] Comment on above: Performed By: #### B LDCX2 #### [facility] Laboratory [address] [place] [address] Dr. Mirza Sdaler SPEC GRAVITY 1.015 Normal 1.005-<=1. 025 [facility] Comment on above: Performed By: #### B LDCX2 #### [facility] Laboratory [address] [place] [address] Dr. Mirza Sadler UA PROTEIN Negative Normal NEGATIVE/ TRACE [facility] Comment on above: Performed By: #### B LDCX2 #### [facility] Laboratory [address] [place] [address] Dr. Mirza Sadler Urobilinogen Qn (U) 0.2 {Luisito'U}/dL Normal 0.2 - 1. 0 [facility] Comment on above: Performed By: #### B LDCX2 #### [facility] Laboratory [address] [place] [address] Dr. Mirza Sadler WBC NONE SEEN Normal NONE SEEN [facility] Comment on above: Performed By: #### B LDCX2 #### [facility] Laboratory [address] [place] [address] Dr. Mirza Sadler URINE T PROTEIN CREAT RATIOo n 11-30-2021 Protein (U) [Mass/Vol] 22.4 mg/dL Critically high <=12.0 [facility] Comment on above: Performed By: #### U RTPCR #### [facility] Laboratory [address] [place] [address] Dr. Mirza Sadler UR PROT CREAT RAT 0.31 Normal [facility] Comment on above: Performed By: #### U RTPCR #### [facility] Laboratory [address] [place] [address] Dr. Mirza Sadler URINE CREAT 73.05 mg/dL Normal 20.00-300. 00 [facility] Comment on above: Performed By: #### U RTPCR #### [facility] Laboratory [address] [place] [address] Dr. Mirza Sadler NM HEPATOBILIARY SCAN W [...] HIGINIO FLANAGAN Date: 2021-11-24 11:55 Normal [facility] BNPon 10-27-2021 Natriuretic peptide B (Bld) [Mass/Vol] 574.0 pg/mL Normal <=900.0 [facility] Comment on above: Performed By: #### P T, PTT #### [facility] Laboratory [address] [place] [address] Dr. Mirza Sadler CARDIAC PARUL ADMITon 022 CK [Catalytic activity/Vol] 70 U/L Normal 39-308 [facility] Comment on above: Performed By: #### P T, PTT #### [facility] Laboratory [address] [address] [address] Mirza Sadler CK.MB [Mass/Vol] 1.10 ng/mL Normal <=3.60 [facility] Comment on above: Performed By: #### P T, PTT #### [facility] Laboratory [address] [address] [address] Mirza Sadelr HSTROP 22.3 pg/mL Normal 4.0-76.1 [facility] Comment on above: Result Comment: CUT- OFF POINTS HAVE BEEN ESTABLISHED BASED ON THE FOURTH UNIVERSAL DEFINITIONS OF MYOCARDIAL INFARCTION. THE UPPER REFERENCE LIMIT (URL) OF TROPONIN, DEFINED THE 99TH PERCENTILE OF cTnI DISTRIBUTION IN A REFERENCE POPULATION, HAS BEEN CONFIRMED THE DECISION THRESHOLD FOR [place] DIAGNOSIS. Performed By: #### P T, PTT #### [facility] Laboratory [address] [place] [address] Dr. Mirza Sadler RACHEL 81 ng/mL Normal 16-96 [facility] Comment on above: Performed By: #### P T, PTT #### [facility] Laboratory [address] [place] [address] Dr. Mirza Sadler CBC AUTO DIFFon 10-27-2021 BASO # 0.1 103/ul Normal 0.0-0.1 [facility] Comment on above: Performed By: #### E RUR #### [facility] Laboratory [address] [place] [address] Dr. Mirza Sadler Basophils/100 WBC (Bld) 0.4 % Normal 0.2-2.0 [facility] Comment on above: Performed By: #### E RUR #### [facility] Laboratory [address] [place] [address] Dr. Mirza Sadler EO # 0.1 103/ul Normal 0.0-0.7 [facility] [facility] Comment on above: Performed By: #### E RUR #### [facility] [address] [place] [address] Dr. Mirza Sadler Eosinophils/100 WBC (Bld) 0.4 % Critically low 0.9-7.0 [facility] Comment on above: Performed By: #### E RUR #### [facility] [address] [place] [address] Dr. Mirza Sadler Erythrocyte distribution width (RBC) [Ratio] 14.1 % Normal 11.0-15.0 [facility] Comment on above: Performed By: #### E RUR #### [facility] [address] [place] [address] Dr. Mirza Sadler Hematocrit (Bld) [Volume fraction] 41.0 % Critically low 42.0-54.0 [facility] Comment on above: Performed By: #### E RUR #### [facility] [address] [address] [address] Mirza Sadler Hemoglobin (Bld) [Mass/Vol] 14.1 g/dL Normal 14.0-18.0 [facility] Comment on above: Performed By: #### E RUR #### [facility] [address] [address] [address] Mirza Sadler IG # 0.05 10e3/ul Critically high 0.00-0.03 [facility] Comment on above: Performed By: #### E RUR #### [facility] [address] [place] [address] Dr. Mirza Sadler IG % 0.4 % Normal 0.0-0.5 [facility] Comment on above: Performed By: #### E RUR #### [facility] [address] [place] [address] Dr. Mirza Sadler LYMPH # 0.9 103/ul Critically low 1.2-3.8 [facility] Comment on above: Performed By: #### E RUR #### [facility] [address] [place] [address] Dr. Mirza Sadler Lymphocytes/100 WBC (Bld) 6.6 % Critically low 20.5-60.0 [facility] Comment on above: Performed By: #### E RUR #### [facility] [address] [place] [address] Dr. Mirza Sadler MANUAL DIFF REQ NO Normal [facility] Comment on above: Performed By: #### E RUR #### [facility] [address] [address] [address] Mirza Sadler MCH (RBC) [Entitic mass] 29.7 pg Normal 25.9-34.0 [facility] Comment on above: Performed By: #### E RUR #### [facility] [address] [place] [address] Dr. Mirza Sadler MCHC (RBC) [Mass/Vol] 34.4 g/dL Normal 29.9-35.2 [facility] Comment on above: Performed By: #### E RUR #### [facility] [address] [place] [address] Dr. Mirza Sadler MCV (RBC) [Entitic vol] 86.3 fL Normal 80.0-94.0 [facility] Comment on above: Performed By: #### E RUR #### [facility] [address] [place] [address] Dr. Mirza Sadler MONO # 0.4 103/ul Normal 0.3-0.8 [facility] Comment on above: Performed By: #### E RUR #### [facility] [address] [place] [address] Dr. Mirza Sadler Monocytes/100 WBC (Bld) 2.6 % Normal 1.7-12.0 [facility] Comment on above: Performed By: #### E RUR #### [facility] [address] [place] [address] Dr. Mirza Sadler NEUT # 12.2 103/ul Critically high 1.4-6.5 [facility] Comment on above: Performed By: #### E RUR #### [facility] [address] [place] [address] Dr. Mirza Sadler Neutrophils/100 WBC (Bld) 89.6 % Critically high 43.0-75.0 [facility] Comment on above: Performed By: #### E RUR #### [facility] [address] [place] [address] Dr. Mirza Sadler Platelet mean volume (Bld) [Entitic vol] 9.7 fL Normal 9.5-13.5 [facility] Comment on above: Performed By: #### E RUR #### [facility] [address] [place] [address] Dr. Mirza Sadler PLT 183 103/ul Normal 150-450 [facility] Comment on above: Performed By: #### E RUR #### [facility] [address] [place] [address] Dr. Mirza Sadler RBC 4.75 106/ul Normal 4.70-6.10 [facility] Comment on above: Performed By: #### E RUR #### [facility] [address] [place] [address] Dr. Mirza Sadler WBC 13.7 103/ul Critically high 4.0-11.0 [facility] Comment on above: Performed By: #### E RUR #### [facility] [address] [place] [address] Dr. Mirza Sadler CULTURE BLOODon 10-27-2021 Microscopic examination of blood, culture Culture Observations: NO GROWTH AT 5 DAYS. Normal [facility] Comment on above: Performed By: #### B LDCX2 #### [facility] [address] [place] [address] Dr. Mirza Sadler Performed By: #### H STROPN #### [facility] [address] [place] [address] Dr. Mirza Sadler Covid-19 PCR ([facility])on 09-30 SARS-CoV-2 (COVID-19) RNA RAMO+probe Ql (Unsp spec) Not detected Normal NOT DETECTED [facility] Comment on above: Result Comment: When diagnostic [...] for this test is supported by the Meteorological Aide of Health and Human Service's declaration that [...] Performed By: #### P T, PTT #### [facility] [address] [place] [address] Dr. Mirza Sadler ER URINE PROFILEon Bilirubin Ql (U) Negative Normal NEGATIVE [facility] Comment on above: Performed By: #### H STROPN #### [facility] [address] [place] [address] Dr. Mirza Sadler Clarity (U) CLEAR Normal CLEAR [facility] Comment on above: Performed By: #### H STROPN #### [facility] [address] [place] [address] Dr. Mirza Sadler Color (U) YELLOW Normal YELLOW [facility] Comment on above: Performed By: #### H STROPN #### [facility] [address] [place] [address] Dr. Mirza Sadler ERUAHD A micrscopic examina tion will be performed if indicated. Normal [facility] Comment on above: Performed By: #### H STROPN #### [facility] [address] [place] [address] Dr. Mirza Sadler Glucose Ql (U) >1000 Abnormal NEGATIVE [facility] Comment on above: Performed By: #### H STROPN #### [facility] [address] [place] [address] Dr. Mirza Sadler Hemoglobin Ql (U) Negative Normal NEGATIVE [facility] Comment on above: Performed By: #### H STROPN #### [facility] [address] [place] [address] Dr. Mirza Sadler Ketones Ql (U) TRACE Abnormal NEGATIVE [facility] Comment on above: Performed By: #### H STROPN #### [facility] [address] [place] [address] Dr. Mirza Sadler LEUKOCYTES Negative Normal NEGATIVE [facility] Comment on above: Performed By: #### H STROPN #### [facility] [address] [place] [address] Dr. Mirza Sadler Nitrite Ql (U) Negative Normal NEGATIVE [facility] Comment on above: Performed By: #### H STROPN #### [facility] [address] [place] [address] Dr. Mirza Sadler pH (U) 5.5 [pH] Normal 5-9 [facility] Comment on above: Performed By: #### H STROPN #### [facility] [address] [place] [address] Dr. Mirza Sadler SPEC GRAVITY 1.010 Normal 1.005-<=1. 025 [facility] Comment on above: Performed By: #### H STROPN #### [facility] [address] [place] [address] Dr. Mirza Sadler UA PROTEIN Negative Normal NEGATIVE/ TRACE [facility] Comment on above: Performed By: #### H STROPN #### [facility] [address] [place] [address] Dr. Mirza Sadler UR MICRO IND NOT INDICATED Normal [facility] Comment on above: Performed By: #### H STROPN #### [facility] [address] [place] [address] Dr. Mirza Sadler Urobilinogen Qn (U) 0.2 {Luisito'U}/dL Normal 0.2 - 1. 0 [facility] Comment on above: Performed By: #### H STROPN #### [facility] [address] [place] [address] Dr. Mirza Sadler INFLUENZA A AND B AGon 10-27 INFLUANE SEE BELOW Normal [facility] Comment on above: Result Comment: Nega tive for Flu A protein angiten. Infection due to Flu A cannot be ruled out. Flu A angiten in the sample may be below the detection limit of the test. Performed By: #### B BRIM RAISER #### [facility] [address] [place] [address] Dr. Mirza Sadler INFLUBNEGH SEE BELOW Normal [facility] Comment on above: Result Comment: Nega tive for Flu B protein antigen. Infection due to Flu B cannot be ruled out. Flu B antigen in the sample may be below the detection limit of the test. Performed By: #### B BRIM RAISER #### [facility] [address] [place] [address] Dr. Mirza Sadler INFLUENZA A AG Negative Normal NEGATIVE SEE COMMENT [facility] Comment on above: Performed By: #### B BRIM RAISER #### [facility] [address] [place] [address] Dr. Mirza Sadler INFLUENZA B AG Negative Normal NEGATIVE SEE COMMENT [facility] Comment on above: Performed By: #### B BRIM RAISER #### [facility] [address] [place] [address] Dr. Mirza Sadler INTERNAL CONTROLS Within Normal Limits Normal Wi thin Normal Limits [facility] Comment on above: Performed By: #### B BRIM RAISER #### [facility] [address] [place] [address] Dr. Mirza Sadler LACTATE/LACTIC ACIDon 2021 Lactate [Moles/Vol] 1.8 mmol/L Normal 0.4-1.9 [facility] Comment on above: Performed By: #### C MP, CMADM #### [facility] [address] [place] [address] Dr. Mirza Sadler LIPASEon 10-27-2021 Lipase [Catalytic activity/Vol] 87.0 U/L Normal 73.0-393.0 [facility] Comment on above: Performed By: #### P T, PTT #### [facility] [address] [place] [address] Dr. Mirza Sadler PH VENOUS BLOODon 10-27-2021 PCO2 VENOUS 37.6 mmHg Critically low 40.0-52.0 [facility] Comment on above: Performed By: #### P T, PTT #### [facility] [address] [place] [address] Dr. Mirza Sadler pH VENOUS 7.422 Normal 7.330-7.43 0 [facility] Comment on above: Performed By: #### P T, PTT #### [facility] [address] [place] [address] Dr. Mirza Sadler PROF 14(COMP METB)on 022 Albumin [Mass/Vol] 4.2 g/dL Normal 3.4-5.0 [facility] Comment on above: Performed By: #### P T, PTT #### [facility] [address] [place] [address] Dr. Mirza Sadler Albumin/Globulin [Mass ratio] 1.3 {ratio} Normal [facility] Comment on above: Performed By: #### P T, PTT #### [facility] [address] [place] [address] Dr. Mirza Sadler ALP [Catalytic activity/Vol] 121 U/L Critically high 46-116 [facility] Comment on above: Performed By: #### P T, PTT #### [facility] [address] [place] [address] Dr. Mirza Sadler ALT [Catalytic activity/Vol] 22 U/L Normal 16-63 [facility] Comment on above: Performed By: #### P T, PTT #### [facility] [address] [address] [address] Mirza Sadler Anion gap [Moles/Vol] 16.0 mmol/L Normal Th e [facility] Comment on above: Performed By: #### P T, PTT #### [facility] [address] [place] [address] Dr. Mirza Sadler AST [Catalytic activity/Vol] 18 U/L Normal 15-37 [facility] Comment on above: Performed By: #### P T, PTT #### [facility] [address] [address] [address] Mirza Sadler Bilirubin [Mass/Vol] 1.3 mg/dL Critically high 0.2-1.0 [facility] Comment on above: Performed By: #### P T, PTT #### [facility] [address] [place] [address] Dr. Mirza Sadler Calcium [Mass/Vol] 8.9 mg/dL Normal 8.5-10.1 [facility] Comment on above: Performed By: #### P T, PTT #### [facility] [address] [address] [address] Mirza Sadler Chloride [Moles/Vol] 105 mmol/L Normal 98-107 [facility] Comment on above: Performed By: #### P T, PTT #### [facility] [address] [place] [address] Dr. Mirza Sadler CO2 [Moles/Vol] 23.7 mmol/L Normal 21.0-32.0 [facility] Comment on above: Performed By: #### P T, PTT #### [facility] [address] [place] [address] Dr. Mirza Sadler Creatinine [Mass/Vol] 1.79 mg/dL Critically high 0.70-1.30 [facility] Comment on above: Performed By: #### P T, PTT #### [facility] [address] [address] [address] Mirza Sadler EGFR-AF SINGAPOREAN 46 mL/min/1.73m2 Critically low >=60 [facility] Comment on above: Performed By: #### P T, PTT #### [facility] [address] [address] [address] Mirza Sadler EGFR-NON AF [place] 38 mL/min/1.73m2 Critically low >=60 [facility] Comment on above: Performed By: #### P T, PTT #### [facility] [address] [address] [address] Mirza Sadler Globulin (S) [Mass/Vol] 3.3 g/dL Normal [facility] Comment on above: Performed By: #### P T, PTT #### [facility] [address] [address] [address] Mirza Sadler Glucose [Mass/Vol] 195 mg/dL Critically high 74-106 [facility] Comment on above: Performed By: #### P T, PTT #### [facility] [address] [place] [address] Dr. Mirza Sadler Potassium [Moles/Vol] 3.7 mmol/L Normal 3.5-5.1 [facility] Comment on above: Performed By: #### P T, PTT #### [facility] [address] [address] [address] Mirza Sadler Protein [Mass/Vol] 7.5 g/dL Normal 6.4-8.2 [facility] Comment on above: Performed By: #### P T, PTT #### [facility] [address] [address] [address] Mirza aSdler Sodium [Moles/Vol] 141 mmol/L Normal 136-145 [facility] Comment on above: Performed By: #### P T, PTT #### [facility] [address] [place] [address] Dr. Mirza Sadler Urea nitrogen [Mass/Vol] 25.0 mg/dL Critically high 7.0-18.0 [facility] Comment on above: Performed By: #### P T, PTT #### [facility] [address] [place] [address] Dr. Mirza Sadler Urea nitrogen/Creatinine [Mass ratio] 14.0 mg/mg Normal [facility] Comment on above: Performed By: #### P T, PTT #### [facility] [address] [place] [address] Dr. Mirza Sadler PROTIMEon 10-27-2021 INR Coag (PPP) [Relative time] 1.07 {INR} Normal [facility] Comment on above: Performed By: #### P T, PTT #### [facility] [address] [place] [address] Dr. Mirza Sadler INR GUIDELINES SEE BELOW Normal [facility] Comment on above: Result Comment: RIVKA RED INR: 2.0 - 3.0 CONDITIONS NOT LISTED BELOW 2.5 - 3.5 FOR PROSTHETIC HEART VALVE REPLACEMENT 2.5 - 3.5 RECURRENT THROMBOSIS Performed By: #### P T, PTT #### [facility] [address] [place] [address] Dr. Mirza Sadler PT Coag (PPP) [Time] 11.5 s Normal 9.0-11.6 [facility] Comment on above: Performed By: #### P T, PTT #### [facility] [address] [place] [address] Dr. Mirza Sadler PTTon 10-27-2021 aPTT Coag (Bld) [Time] 25.1 s Normal 22.3-36.2 [facility] Comment on above: Performed By: #### P T, PTT #### [facility] [address] [place] [address] Dr. Mirza Sadler XR CHEST 1 Von [...] by: GAGAN CAREY Date: 2021-10-27 10:21 Normal [facility] 10-20-2021 CNPN Telephone ([facility]) -- LANI LIZAMA ([id number]) 1950 M Date Time Provider Department 10/20/21 [...] Fully Assessed Reason for Visit: Lab Orders [069] Primary Visit Diagnosis:Monoclonal gammopathy [D47.2] Order(s):CBC + DIFF [SQCBCDIF] Order #: [id number] FUTURE Prescriptions as of 10/24/2021 - famotidine [...] Status:Closed by VEE DAY on 10/24/21 Normal [facility] RAD - CT Reporton 10-06-2021 RAD - CT Report [id number]:127 Normal [facility] CT ABD/PELVIS WO CONon 10-03 CT [...] by: HIGINIO FLANAGAN Date: 2021-10-03 16:29 Normal [facility] Ambulatory Visit Summaryon 0 09-29-2021 Ambulatory [...] RLQ ASHD (arteriosclerotic heart disease) Atheroscler of [place] artery of both legs with intermit claudication [...] infrarenal abdominal aorta due to atherosclerosis Normal [facility] Outside Colonoscopyon 2021 Outside Colonoscopy [id number]:127 Normal [facility] Physician Referralon Physician Referral [id number]:127 Normal [facility] PROF 14(COMP METB)on Albumin [Mass/Vol] 4.1 g/dL Normal 3.4-5.0 [facility] Comment on above: Performed By: #### P T, PTT #### [facility] [address] [place] [address] Dr. Mirza Sadler Albumin/Globulin [Mass ratio] 1.2 {ratio} Normal [facility] Comment on above: Performed By: #### P T, PTT #### [facility] [address] [address] [address] Mirza Sadler ALP [Catalytic activity/Vol] 132 U/L Critically high 46-116 [facility] Comment on above: Performed By: #### P T, PTT #### [facility] [address] [address] [address] Mirza Sadler ALT [Catalytic activity/Vol] 30 U/L Normal 16-63 [facility] Comment on above: Performed By: #### P T, PTT #### [facility] [address] [address] [address] Mirza Sadler Anion gap [Moles/Vol] 10.7 mmol/L Normal [facility] Comment on above: Performed By: #### P T, PTT #### [facility] [address] [address] [address] Mirza Sadler AST [Catalytic activity/Vol] 21 U/L Normal 15-37 [facility] Comment on above: Performed By: #### P T, PTT #### [facility] [address] [place] [address] Dr. Mirza Sadler Bilirubin [Mass/Vol] 0.7 mg/dL Normal 0.2-1.0 [facility] Comment on above: Performed By: #### P T, PTT #### [facility] [address] [place] [address] Dr. Mirza Sadler Calcium [Mass/Vol] 9.0 mg/dL Normal 8.5-10.1 [facility] Comment on above: Performed By: #### P T, PTT #### [facility] [address] [place] [address] Dr. Mirza Sadler Chloride [Moles/Vol] 106 mmol/L Normal 98-107 [facility] Comment on above: Performed By: #### P T, PTT #### [facility] [address] [place] [address] Dr. Mirza Sadler CO2 [Moles/Vol] 27.5 mmol/L Normal 21.0-32.0 [facility] Comment on above: Performed By: #### P T, PTT #### [facility] [address] [place] [address] Dr. Mirza Sadler Creatinine [Mass/Vol] 1.77 mg/dL Critically high 0.70-1.30 [facility] Comment on above: Performed By: #### P T, PTT #### [facility] [address] [address] [address] Mirza Sadler EGFR-AF [place]AN 46 mL/min/1.73m2 Critically low >=60 [facility] Comment on above: Performed By: #### P T, PTT #### [facility] [address] [address] [address] Mirza Sadler EGFR-NON AF [place] 38 mL/min/1.73m2 Critically low >=60 [facility] Comment on above: Performed By: #### P T, PTT #### [facility] [address] [address] [address] Mirza Sadler Globulin (S) [Mass/Vol] 3.5 g/dL Normal [facility] Comment on above: Performed By: #### P T, PTT #### [facility] [address] [address] [address] Mirza Sadler Glucose [Mass/Vol] 135 mg/dL Critically high 74-106 [facility] Comment on above: Performed By: #### P T, PTT #### [facility] [address] [address] [address] Mirza Sadler Potassium [Moles/Vol] 4.2 mmol/L Normal 3.5-5.1 [facility] Comment on above: Performed By: #### P T, PTT #### [facility] [address] [address] [address] Mirza Sadler Protein [Mass/Vol] 7.6 g/dL Normal 6.4-8.2 [facility] Comment on above: Performed By: #### P T, PTT #### [facility] [address] [address] [address] Mirza Sadler Sodium [Moles/Vol] 140 mmol/L Normal 136-145 [facility] Comment on above: Performed By: #### P T, PTT #### [facility] [address] [address] [address] Mirza Sadler Urea nitrogen [Mass/Vol] 17.0 mg/dL Normal 7.0-18.0 [facility] Comment on above: Performed By: #### P T, PTT #### [facility] [address] [place], [place] [address] Dr. Mirza Sadler Urea nitrogen/Creatinine [Mass ratio] 9.6 mg/mg Normal [facility] Comment on above: Performed By: #### P T, PTT #### [facility] [address] [place], [place] [address] Dr. Mirza Sadler US SINGLE QUAD RT [...] HIGINIO FLANAGAN Date: 2021-08-27 08:40 Normal [facility] A1C HEMOGLOBINon 07-17-2021 HbA1c (Bld) [Mass fraction] 6.9 % [employer] Other Glucose - FINGER STICKon Glucose [Mass/Vol] 180 mg/dL [employer] Other HbA1c (Bld) [Mass fraction]o n 07-17-2021 A1C HEMOGLOBIN [facility] Other A1C with Estimated Average G luon 04-10-2021 HbA1c (Bld) [Mass fraction] 6.4 % [employer] Other HbA1c (Bld) [Mass fraction] 243 % [employer] Other Glucoseon 04-10-2021 Glucose [Mass/Vol] 243 mg/dL [employer] Other A1C HEMOGLOBINon 01-03-2021 HbA1c (Bld) [Mass fraction] 6.6 % [employer] Other Glucose - FINGER STICKon Glucose [Mass/Vol] 142 mg/dL [employer] Other HbA1c (Bld) [Mass fraction]o n 01-03-2021 A1C HEMOGLOBIN [facility] [employer] Other CNPNon 10-27-2020 CNPN Telephone ([facility]) -- LANI LIZAMA ([id number]) 1950 Date Time Provider Department 10/27/20 ANGELINE [...] Status:Closed by ANGELINE WARE on 10/28/20 Normal [facility] Cardiovascular Lab Reporton 10-16-2018 Cardiovascular Lab Report [facility] Patient Name: Lani Lizama [facility] MR #: [id number] Physician: Pinky Bishop, Department of M.D. Medicine Service Date: 10/15/2018 Division of Birthdate: 1950 Cardiology Room #: [id number] Adult Cardiovascular Services [facility] [address] [facility]. [place] [address] Cardiovascular Laboratory Report FINAL IMPRESSIONS: 1. Severe three-vessel akiak coronary artery disease. 2. Kmmw-yt-dgzj bypass grafts patent. 3. Mild in-stent restenosis [...] 4. Follow up with me in the [facility] in the next 4-6 weeks. 5. [...] guidance and using a micropuncture kit. A 6-Uzbek Glidesheath was inserted without difficulty. Coronary angiography [...] of the vessel. There is evidence of vzpl-kq-zmnve collaterals. The distal vessel is supplied via [...] is a long stented segment in the otamryxt-qk-svwbch portion of the vessel with 30% in-stent restenosis. The vessel distal to the touchdown shows caliber reduction and no discrete stenosis. There is diffuse disease in the branches. Saphenous vein graft to the posterior descending artery. This is widely patent. It shows an extensive stented segment from jubfkzmv-sn-gblrdhqrta of the vessel. There is a 40%-50% [...] Bishop M.D. Date Trans: 10/16/2018 05:01 Nakul/gatito [id number] cc: Harley Crespo D.O. [address] [place], [place] [address] [place] [id number] Normal [facility] BASIC METABOLIC PANELon - Calcium [Mass/Vol] 8.9 mg/dL Normal 8.6-10.3 [facility] Comment on above: Order Comment: No: D o not add to previous draw Performed By: #### 1 69, [id number] #### [facility] [address] [place] [address], [place] Chloride [Moles/Vol] 110 mmol/L High 98-107 [facility] Comment on above: Order Comment: No: D o not add to previous draw Performed By: #### 1 69, [id number] #### [facility] [address] [place] [address], [place] CO2 [Moles/Vol] 26 mmol/L Normal 21-31 [facility] Comment on above: Order Comment: No: D o not add to previous draw Performed By: #### 1 69, 43618 #### [facility] [address] [place] [address], [place] Creatinine [Mass/Vol] 1.52 mg/dL High 0.70-1.30 [facility] Comment on above: Order Comment: No: D o not add to previous draw Performed By: #### 1 69, 57926 #### [facility] [address] [place] [address], [place] GFR/1.73 sq M predicted among blacks MDRD (S/P/Bld) [Vol rate/Area] 56 ml/min/1.73sq m Abnormal >60 [facility] Comment on above: Order Comment: No: D o not add to previous draw Performed By: #### 1 69, 81261 #### [facility] [address] [place] [address], [place] GFR/1.73 sq M predicted among non-blacks MDRD (S/P/Bld) [Vol rate/Area] 46 ml/min/1.73sq m Abnormal >60 [facility] Comment on above: Order Comment: No: D o not add to previous draw Performed By: #### 1 69, 82755 #### [facility] [address] [place] [id number], [facility] Glucose [Mass/Vol] 89 mg/dL Normal 70-100 [facility] Comment on above: Order Comment: No: D o not add to previous draw Performed By: #### 1 69, 87237 #### [facility] [address] [place] [id number], [facility] Potassium [Moles/Vol] 3.9 mmol/L Normal 3.5-5.1 [facility] Comment on above: Order Comment: No: D o not add to previous draw Performed By: #### 1 69, 36032 #### [facility] [address] [place] [address], [facility] Sodium [Moles/Vol] 141 mmol/L Normal 136-145 [facility] Comment on above: Order Comment: No: D o not add to previous draw Performed By: #### 1 69, 43565 #### [facility] [address] [place] [id number], [facility] Urea nitrogen [Mass/Vol] 19 mg/dL Normal 7-25 [facility] Comment on above: Order Comment: No: D o not add to previous draw Performed By: #### 1 69, 45131 #### [facility] [address] [place] [id number], [facility] CBC W/DIFFon 10-15-2018 ABS BASOPHILS 0.1 10*3/uL Normal 0.0-0.2 [facility] Comment on above: Order Comment: No: D o not add to previous draw Performed By: #### 5 0103 #### [facility] [address] [place] [id number], [facility] ABS IMM GRANS 0.0 10*3/uL Normal 0.0-0.2 [facility] Comment on above: Order Comment: No: D o not add to previous draw Performed By: #### 5 0103 #### [facility] [address] [place] [address], [facility] ABS NEUTROPHILS 3.5 10*3/uL Normal 1.6-7.6 [facility] Comment on above: Order Comment: No: D o not add to previous draw Performed By: #### 5 0103 #### [facility] [address] [facility] [place] [id number], [facility] Basophils/100 WBC (Bld) 0.8 % Normal 0.0-1.0 [facility] Comment on above: Order Comment: No: D o not add to previous draw Performed By: #### 5 0103 #### [facility] [address] [facility] [place] [address], [facility] Eosinophils (Bld) [#/Vol] 0.3 10*3/uL Normal 0.0-0.5 [facility] Comment on above: Order Comment: No: D o not add to previous draw Performed By: #### 5 0103 #### [facility] [address] [facility] [place] [address], [facility] Eosinophils/100 WBC (Bld) 3.9 % Normal 0.0-6.0 [facility] Comment on above: Order Comment: No: D o not add to previous draw Performed By: #### 5 0103 #### [facility] [address] [facility] [place] [address], [facility] Erythrocyte distribution width (RBC) [Ratio] 13.5 % Normal 11.5-15.0 [facility] Comment on above: Order Comment: No: D o not add to previous draw Performed By: #### 5 0103 #### [facility] [address] Hematocrit (Bld) [Volume fraction] 39.7 % Normal 39.0-50.0 [facility] Comment on above: Order Comment: No: D o not add to previous draw Performed By: #### 5 0103 #### [facility] [address] [facility] [place] [address], [facility] Hemoglobin (Bld) [Mass/Vol] 13.0 g/dL Normal 13.0-17.0 [facility] Comment on above: Order Comment: No: D o not add to previous draw Performed By: #### 5 3 #### [facility] [address] [place] [address], [facility] IMMATURE GRANS 0.3 % Normal 0.0-1.0 [facility] Comment on above: Order Comment: No: D o not add to previous draw Performed By: #### 5 3 #### [facility] [address] Lymphocytes (Bld) [#/Vol] 1.9 10*3/uL Normal 1.2-4.0 [facility] Comment on above: Order Comment: No: D o not add to previous draw Performed By: #### 5 3 #### [facility] [address] [place] [address], [facility] Lymphocytes/100 WBC (Bld) 30.1 % Normal 20.0-45.0 [facility] Comment on above: Order Comment: No: D o not add to previous draw Performed By: #### 5 0103 #### [facility] [address] [facility] [place] [address], [facility] MCH (RBC) [Entitic mass] 30.0 pg Normal 27.0-33.0 [facility] Comment on above: Order Comment: No: D o not add to previous draw Performed By: #### 5 3 #### [facility] [address] [facility] [place] [address], [facility] MCHC (RBC) [Mass/Vol] 32.7 g/dL Normal 32.0-35.0 [facility] Comment on above: Order Comment: No: D o not add to previous draw Performed By: #### 5 0103 #### [facility] [address] [place] [id number], [facility] MCV (RBC) [Entitic vol] 91.5 fL Normal 82.0-98.0 [facility] Comment on above: Order Comment: No: D o not add to previous draw Performed By: #### 5 0103 #### [facility] [address] [place] [address], [facility] Monocytes (Bld) [#/Vol] 0.7 10*3/uL Normal 0.1-1.0 [facility] Comment on above: Order Comment: No: D o not add to previous draw Performed By: #### 5 0103 #### [facility] [address] [place] [address], [facility] MONOS 10.7 % Normal 5.0-12.0 [facility] Comment on above: Order Comment: No: D o not add to previous draw Performed By: #### 5 0103 #### [facility] [address] [place] [address], [facility] Neutrophils/100 WBC (Bld) 54.2 % Normal 40.0-72.0 [facility] Comment on above: Order Comment: No: D o not add to previous draw Performed By: #### 5 0103 #### [facility] [address] [place] [id number], [facility] Nucleated RBC/100 WBC (Bld) [Ratio] 0 % Normal 0-0 [facility] Comment on above: Order Comment: No: D o not add to previous draw Performed By: #### 5 0103 #### [facility] [address] [place] [id number], [facility] PLAT CNT 164 10*3/uL Normal 150-400 [facility] Comment on above: Order Comment: No: D o not add to previous draw Performed By: #### 5 0103 #### [facility] [address] [place] [address], [facility] RBC (Bld) [#/Vol] 4.34 10*6/uL Normal 4.20-5.70 [facility] Comment on above: Order Comment: No: D o not add to previous draw Performed By: #### 5 0103 #### [facility] [address] [place] [address], [facility] WBC (Bld) [#/Vol] 6.38 10*3/uL Normal 4.00-10.60 [facility] Comment on above: Order Comment: No: D o not add to previous draw Performed By: #### 5 0103 #### [facility] [address] [facility] [address] MAGNESIUM BLOODon 10-15-2018 Magnesium [Mass/Vol] 2.0 mg/dL Normal 1.9-2.7 [facility] Comment on above: Order Comment: No: D o not add to previous draw Performed By: #### 1 0070, 56361 #### [facility] [address] PROTHROMBIN TIMEon 9 INR Coag (PPP) [Relative time] 1.11 {INR} Normal 0.91-1.16 [facility] Comment on above: Order Comment: No: D [...] 1995;108:231S-246S. Performed By: #### 5 6101 #### [address] PT Coag (PPP) [Time] 14.3 s Normal 12.3-14.8 [facility] Comment on above: Order Comment: No: D o not add to previous draw Result Comment: ALL RESULTS MUST BE INTERPRETED WITH RESPECT TO BLOOD DRAWING ARTIFACT OR DILUTION ERROR OF ANTICOAGULANT AT THE TIME OF SAMPLING. Performed By: #### 5 6101 #### [address] POC GLUCOSE LABon 10-14-2018 Glucose [Mass/Vol] 180 mg/dL High 70-100 [facility] Comment on above: Performed By: #### 8 5499 #### [address] Cardiovascular Lab Reporton 02-25-2018 Cardiovascular Lab Report [facility] Patient Name: Lani Lizama [facility] MR #: [id number] Physician: Pinky Bishop, Department of M.D. Medicine Service Date: 02/24/2018 Division of Birthdate: 1950 Cardiology Room #: [id number] Adult Cardiovascular Services [place] [address] Cardiovascular Laboratory Report FINAL IMPRESSIONS: 1. 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 2. Severe 3-vessel akiak coronary artery disease. 3. 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 4. Ccxpmzdq-fh-ltsbbp systemic hypertension. RECOMMENDATIONS: 1. Aspirin 81 mg lifelong. 2. Plavix 75 mg daily for a minimum of 6 months, preferably group home. 3. Aggressive cardiovascular risk factor modification. 4. Optimization of medical management; high intensity statin therapy as tolerated, we will switch his Toprol-XL to Coreg 25 mg p.o. b.i.d., and angiotensin-converting enzyme inhibitor. 5. Follow up with me in the [facility] in the next 2-3 weeks. 6. Follow up with Dr. Crespo as scheduled. PROCEDURES: Limited femoral angiography, bilateral selective coronary angiography, saphenous vein graft angiography, angiography of the left internal mammary artery graft, limited angiography of the left subclavian, percutaneous balloon angioplasty, and Synergy drug-eluting stent placement to the saphenous vein graft to the obtuse marginal, placement of a 6-Uzbek MYNXGRIP closure device. METHODS: After risks, benefits, and alternatives were explained, written informed consent was obtained. The patient was prepped and draped in usual sterile fashion over both groins. Using 1% lidocaine solution, local infiltration anesthesia was achieved over the right groin. Using a micropuncture kit, access of the right common femoral artery was obtained. A 6-Uzbek 11 cm sheath was exchanged then without [...] to proceed with an interventional procedure. A 6-Uzbek JR4 guide catheter was advanced in and [...] the procedure. All catheters were removed. A 6-Uzbek MYNXGRIP closure device was deployed per protocol [...] is a 30% touchdown stenosis of the akiak vessel. There is evidence of rcfn-kk-sjyey collaterals supplying the distal right coronary artery. Limited femoral angiography, this shows mild plaque and anatomy suitable for closure device. INDICATIONS: Unstable angina. Electronically Signed by: Pinky Bishop M.D. 03/06/2018 12:15 P Pinky Bishop M.D. Date Dict: 02/24/2018/01:39 P/Pinky Bishop M.D. Date Trans: 02/25/2018 02:12 Brandie [id number] cc: Harley Crespo D.O. [address] [place] [id number] Normal [facility] POC GLUCOSE LABon 02-25-2018 Glucose [Mass/Vol] 150 mg/dL High 70-100 [facility] Comment on above: Performed By: #### 8 5499 #### [facility] [address] POC GLUCOSE LABon 02-24-2018 Glucose [Mass/Vol] 192 mg/dL High 70-100 [facility] Comment on above: Performed By: #### 8 5499 #### [facility] [address] [place] [address], [facility] Glucose [Mass/Vol] 186 mg/dL High 70-100 [facility] Comment on above: Performed By: #### 8 5499 #### [facility] [address] [place] [address], [facility] Vital Signs Date Time Vital Sign Value Performing Clinician Facility 04-30-2024 09:42-0500 Body height 170.18 cm [facility] 04-30-2024 09:42-0500 Body mass index (BMI) [Ratio] 27.9 kg/m2 [facility] 04-30-2024 09:42-0500 Body weight 80.96 kg [facility] 04-30-2024 09:42-0500 Diastolic blood pressure 80 mm[Hg] [facility] 04-30-2024 09:42-0500 Heart rate 81 /min [facility] 04-30-2024 09:42-0500 Respiratory rate 18 /min [facility] 04-30-2024 09:42-0500 SaO2% (BldA) [Mass fraction] 98 % [facility] 04-30-2024 09:42-0500 Systolic blood pressure 134 mm[Hg] [facility] 04-16-2024 08:24-0500 Body height 170.18 cm [facility] 04-16-2024 08:24-0500 Body mass index (BMI) [Ratio] 28.2 kg/m2 [facility] 04-16-2024 08:24-0500 Body weight 81.76 kg [facility] 04-16-2024 08:24-0500 Diastolic blood pressure 80 mm[Hg] [facility] 04-16-2024 08:24-0500 Heart rate 84 /min [facility] 04-16-2024 08:24-0500 Respiratory rate 12 /min [facility] 04-16-2024 08:24-0500 SaO2% (BldA) [Mass fraction] 97 % [facility] 04-16-2024 08:24-0500 Systolic blood pressure 137 mm[Hg] [facility] 04-02-2024 11:44-0500 Body height 170.2 cm Kenneth Tavera DPM Work Phone: [facility] 04-02-2024 11:44-0500 Body mass index (BMI) [Ratio] 26.78 kg/m2 Kenneth Tavera DPM Work Phone: [facility] 04-02-2024 11:44-0500 Body weight 77.56 kg Kenneth Tavera DPM Work Phone: [facility] 04-02-2024 11:44-0500 Respiratory rate 18 /min Kenneth Tavera DPM Work Phone: [facility] 02-24-2024 09:46-0500 Body height 170.18 cm [facility] 02-24-2024 09:46-0500 Body mass index (BMI) [Ratio] 27.1 kg/m2 [facility] 02-24-2024 09:46-0500 Body weight 78.47 kg [facility] 02-24-2024 09:46-0500 Diastolic blood pressure 68 mm[Hg] [facility] 02-24-2024 09:46-0500 Heart rate 80 /min [facility] 02-24-2024 09:46-0500 SaO2% (BldA) [Mass fraction] 97 % [facility] 02-24-2024 09:46-0500 Systolic blood pressure 110 mm[Hg] [facility] 01-23-2024 11:29-0400 Body height 170.2 cm Kenneth Tavera DPM Work Phone: [facility] 01-23-2024 11:29-0400 Body mass index (BMI) [Ratio] 26.78 kg/m2 Kenneth Tavera DPM Work Phone: [facility] 01-23-2024 11:29-0400 Body weight 77.56 kg Kenneth Tavera DPM Work Phone: [facility] 01-23-2024 11:29-0400 Diastolic blood pressure 82 mm[Hg] Kenneth Tavera DPM Work Phone: [facility] 01-23-2024 11:29-0400 Heart rate 88 /min Kenneth Tavera DPM Work Phone: [facility] 01-23-2024 11:29-0400 Systolic blood pressure 128 mm[Hg] Kenneth Tavera DPM Work Phone: [facility] 01-23-2024 09:05-0400 Body height 170.18 cm [facility] 01-23-2024 09:05-0400 Body mass index (BMI) [Ratio] 27.3 kg/m2 [facility] 01-23-2024 09:05-0400 Body weight 79.37 kg [facility] 01-23-2024 09:05-0400 Diastolic blood pressure 71 mm[Hg] [facility] 01-23-2024 09:05-0400 Heart rate 78 /min [facility] 01-23-2024 09:05-0400 Respiratory rate 18 /min [facility] 01-23-2024 09:05-0400 SaO2% (BldA) [Mass fraction] 98 % [facility] 01-23-2024 09:05-0400 Systolic blood pressure 106 mm[Hg] [facility] 01-07-2024 08:26-0400 Body height 170.18 cm [facility] 01-07-2024 08:26-0400 Body mass index (BMI) [Ratio] 27.2 kg/m2 [facility] 01-07-2024 08:26-0400 Body temperature 96.7 [degF] [facility] 01-07-2024 08:26-0400 Body weight 78.98 kg [facility] 01-07-2024 08:26-0400 Diastolic blood pressure 77 mm[Hg] [facility] 01-07-2024 08:26-0400 Heart rate 91 /min [facility] 01-07-2024 08:26-0400 Respiratory rate 16 /min [facility] 01-07-2024 08:26-0400 SaO2% (BldA) [Mass fraction] 97 % [facility] 01-07-2024 08:26-0400 Systolic blood pressure 123 mm[Hg] [facility] 12-12-2023 08:25-0400 Body height 170.18 cm [facility] 12-12-2023 08:25-0400 Body mass index (BMI) [Ratio] 27.4 kg/m2 [facility] 12-12-2023 08:25-0400 Body weight 79.49 kg [facility] 12-12-2023 08:25-0400 Diastolic blood pressure 79 mm[Hg] [facility] 12-12-2023 08:25-0400 Heart rate 80 /min [facility] 12-12-2023 08:25-0400 Respiratory rate 12 /min [facility] 12-12-2023 08:25-0400 Systolic blood pressure 127 mm[Hg] [facility] 10-17-2023 09:21-0400 Body height 170.18 cm [facility] 10-17-2023 09:21-0400 Body mass index (BMI) [Ratio] 28.2 kg/m2 [facility] 10-17-2023 09:21-0400 Body weight 81.81 kg [facility] 10-17-2023 09:21-0400 Diastolic blood pressure 79 mm[Hg] [facility] 10-17-2023 09:21-0400 Heart rate 70 /min [facility] 10-17-2023 09:21-0400 Respiratory rate 18 /min [facility] 10-17-2023 09:21-0400 SaO2% (BldA) [Mass fraction] 97 % [facility] 10-17-2023 09:21-0400 Systolic blood pressure 133 mm[Hg] [facility] 08-12-2023 08:37-0400 Body height 170.18 cm [facility] 08-12-2023 08:37-0400 Body mass index (BMI) [Ratio] 27.6 kg/m2 [facility] 08-12-2023 08:37-0400 Body weight 79.88 kg [facility] 08-12-2023 08:37-0400 Diastolic blood pressure 84 mm[Hg] [facility] 08-12-2023 08:37-0400 Heart rate 82 /min [facility] 08-12-2023 08:37-0400 Respiratory rate 12 /min [facility] 08-12-2023 08:37-0400 Systolic blood pressure 134 mm[Hg] [facility] 07-02-2023 08:54-0400 Body height 170.18 cm [facility] 07-02-2023 08:54-0400 Body mass index (BMI) [Ratio] 27.3 kg/m2 [facility] 07-02-2023 08:54-0400 Body temperature 96.5 [degF] [facility] 07-02-2023 08:54-0400 Body weight 79.09 kg [facility] 07-02-2023 08:54-0400 Diastolic blood pressure 79 mm[Hg] [facility] 07-02-2023 08:54-0400 Heart rate 87 /min [facility] 07-02-2023 08:54-0400 Respiratory rate 18 /min [facility] 07-02-2023 08:54-0400 SaO2% (BldA) [Mass fraction] 96 % [facility] 07-02-2023 08:54-0400 Systolic blood pressure 120 mm[Hg] [facility] 06-18-2023 10:51-0400 Body height 170.18 cm [facility] 06-18-2023 10:51-0400 Body mass index (BMI) [Ratio] 26.6 kg/m2 [facility] 06-18-2023 10:51-0400 Body weight 77.11 kg [facility] 06-18-2023 10:51-0400 Diastolic blood pressure 84 mm[Hg] [facility] 06-18-2023 10:51-0400 Heart rate 95 /min [facility] 06-18-2023 10:51-0400 Respiratory rate 18 /min [facility] 06-18-2023 10:51-0400 SaO2% (BldA) [Mass fraction] 97 % [facility] 06-18-2023 10:51-0400 Systolic blood pressure 127 mm[Hg] [facility] 05-03-2023 09:30-0500 Body height 170.18 cm DO Harley Ball Work Phone: [facility] 05-03-2023 09:30-0500 Body weight 77.29 kg DO Harley Ball Work Phone: [facility] 05-03-2023 09:30-0500 Diastolic blood pressure 85 mm[Hg] DO Harley Ball Work Phone: [facility] 05-03-2023 09:30-0500 Systolic blood pressure 126 mm[Hg] DO Harley Ball Work Phone: [facility] 03-12-2023 11:15-0500 Body height 170.18 cm Tondra Mapus Other [facility] 03-12-2023 11:15-0500 Body mass index (BMI) [Ratio] 27.03 kg/m2 Tondra Mapus Other [facility] [employer] Other 03-12-2023 11:15-0500 Body weight 78.29 kg Tondra Mapus Other [facility] 03-12-2023 11:15-0500 Diastolic blood pressure 79 mm[Hg] Tondra Mapus Other [facility] 03-12-2023 11:15-0500 Respiratory rate 18 /min Tondra Mapus Other [employer] Other 03-12-2023 11:15-0500 SaO2% (BldA) [Mass fraction] 98 % Tondra Mapus Other [employer] Other 03-12-2023 11:15-0500 Systolic blood pressure 128 mm[Hg] Tondra Mapus Other [facility] 01-07-2023 10:00-0400 Body height 170.18 cm Kingsley Latisha Other [employer] Other 01-07-2023 10:00-0400 Body mass index (BMI) [Ratio] 27 kg/m2 Kingsley Ltaisha Other [employer] Other 01-07-2023 10:00-0400 Body temperature 97.7 [degF] Kingsley Latisha Other [employer] Other 01-07-2023 10:00-0400 Body weight 78.2 kg Kingsley Latisha Other [employer] Other 01-07-2023 10:00-0400 Diastolic blood pressure 73 mm[Hg] Kingsley Latisha Other [employer] Other 01-07-2023 10:00-0400 Respiratory rate 16 /min Kingsley Latisha Other [employer] Other 01-07-2023 10:00-0400 SaO2% (BldA) [Mass fraction] 98 % Kingsley Latisha Other [employer] Other 01-07-2023 10:00-0400 Systolic blood pressure 108 mm[Hg] Kingsley Latisha Other [employer] Other 12-31-2022 09:30-0400 Body height 170.18 cm Harley Ball Other [employer] Other 12-31-2022 09:30-0400 Body mass index (BMI) [Ratio] 27.03 kg/m2 Harley Ball Other [employer] Other 12-31-2022 09:30-0400 Body weight 78.29 kg Harley Ball Other [employer] Other 12-31-2022 09:30-0400 Diastolic blood pressure 69 mm[Hg] Harley Ball Other [employer] Other 12-31-2022 09:30-0400 Respiratory rate 16 /min Harley Ball Other [employer] Other 12-31-2022 09:30-0400 Systolic blood pressure 102 mm[Hg] Harley Ball Other [employer] Other 08-31-2022 08:45-0400 Body height 170.18 cm Harley Ball Other [employer] Other 08-31-2022 08:45-0400 Body mass index (BMI) [Ratio] 26.72 kg/m2 Harley Ball Other [employer] Other 08-31-2022 08:45-0400 Body weight 77.38 kg Harley Ball Other [employer] Other 08-31-2022 08:45-0400 Diastolic blood pressure 69 mm[Hg] Harley Ball Other [employer] Other 08-31-2022 08:45-0400 Respiratory rate 12 /min Harley Ball Other [employer] Other 08-31-2022 08:45-0400 Systolic blood pressure 102 mm[Hg] Harley Ball Other [employer] Other 07-02-2022 10:40-0400 Body height 170.18 cm Kingsley Latisha Other [employer] Other 07-02-2022 10:40-0400 Body mass index (BMI) [Ratio] 27.69 kg/m2 Kingsley Latisha Other [employer] Other 07-02-2022 10:40-0400 Body temperature 96.4 [degF] Kingsley Latisha Other [employer] Other 07-02-2022 10:40-0400 Body weight 80.2 kg Kingsley Latisha Other [employer] Other 07-02-2022 10:40-0400 Diastolic blood pressure 71 mm[Hg] Kingsley Latisha Other [employer] Other 07-02-2022 10:40-0400 Respiratory rate 16 /min Kingsley Latisha Other [employer] Other 07-02-2022 10:40-0400 SaO2% (BldA) [Mass fraction] 97 % Kingsley Latisha Other [employer] Other 07-02-2022 10:40-0400 Systolic blood pressure 115 mm[Hg] Kingsley Latisha Other [employer] Other 06-28-2022 09:30-0400 Body height 170.18 cm Harley Ball Other [employer] Other 06-28-2022 09:30-0400 Body mass index (BMI) [Ratio] 27.16 kg/m2 Harley Ball Other [employer] Other 06-28-2022 09:30-0400 Body weight 78.65 kg Harley Ball Other [employer] Other 06-28-2022 09:30-0400 Diastolic blood pressure 66 mm[Hg] Harley Ball Other [employer] Other 06-28-2022 09:30-0400 Respiratory rate 12 /min Harley Ball Other [employer] Other 06-28-2022 09:30-0400 Systolic blood pressure 115 mm[Hg] Harley Ball Other [employer] Other 06-26-2022 08:45-0400 Body height 170.18 cm Tondra Mapus Other [employer] Other 06-26-2022 08:45-0400 Body mass index (BMI) [Ratio] 27.75 kg/m2 Tondra Mapus Other [employer] Other 06-26-2022 08:45-0400 Body weight 80.38 kg Tondra Mapus Other [employer] Other 06-26-2022 08:45-0400 Diastolic blood pressure 61 mm[Hg] Tondra Mapus Other [employer] Other 06-26-2022 08:45-0400 Respiratory rate 16 /min Tondra Mapus Other [employer] Other 06-26-2022 08:45-0400 SaO2% (BldA) [Mass fraction] 96 % Tondra Mapus Other [employer] Other 06-26-2022 08:45-0400 Systolic blood pressure 105 mm[Hg] Tondra Mapus Other [employer] Other 03-20-2022 09:15-0500 Body height 170.18 cm Tondra Mapus Other [employer] Other 03-20-2022 09:15-0500 Body mass index (BMI) [Ratio] 26.15 kg/m2 Tondra Mapus Other [employer] Other 03-20-2022 09:15-0500 Body weight 75.75 kg Tondra Desireeus Other [employer] Other 03-20-2022 09:15-0500 Diastolic blood pressure 57 mm[Hg] Tondra Mapus Other [employer] Other 03-20-2022 09:15-0500 Respiratory rate 16 /min Tondra Mapus Other [employer] Other 03-20-2022 09:15-0500 SaO2% (BldA) [Mass fraction] 98 % Tondra Mapus Other [employer] Other 03-20-2022 09:15-0500 Systolic blood pressure 117 mm[Hg] Tondra Mapus Other [employer] Other 01-17-2022 11:45-0400 Body height 170.18 cm DO Harley Ball Work Phone: [facility] 01-17-2022 11:22-0400 Diastolic blood pressure 68 mm[Hg] DO Harley Ball Work Phone: [facility] 01-17-2022 11:22-0400 Heart rate 60 /min DO Harley Ball Work Phone: [facility] 01-17-2022 11:22-0400 Systolic blood pressure 118 mm[Hg] DO Harley Ball Work Phone: [facility] 01-17-2022 11:05-0400 Body temperature 97.4 [degF] DO Harley Ball Work Phone: [facility] 01-17-2022 11:05-0400 Respiratory rate 18 /min DO Harley Ball Work Phone: [facility] 01-17-2022 11:05-0400 SaO2% (BldA) [Mass fraction] 95 % DO Harley Ball Work Phone: [facility] 01-17-2022 06:58-0400 Body weight 77.9 kg DO Harley Crespo Work Phone: [facility] 01-15-2022 15:23-0400 Inhaled oxygen flow rate 2 L/min DO Harley Crespo Work Phone: [facility] 12-18-2021 09:45-0400 Body height 170.18 cm Tondra Mapus Other [employer] Other 12-18-2021 09:45-0400 Body mass index (BMI) [Ratio] 27.25 kg/m2 Tondra Mapus Other [employer] Other 12-18-2021 09:45-0400 Body weight 78.93 kg Tondra Mapus Other [employer] Other 12-18-2021 09:45-0400 Diastolic blood pressure 65 mm[Hg] Tondra Mapus Other [employer] Other 12-18-2021 09:45-0400 Respiratory rate 16 /min Tondra Mapus Other [employer] Other 12-18-2021 09:45-0400 SaO2% (BldA) [Mass fraction] 97 % Tondra Mapus Other [employer] Other 12-18-2021 09:45-0400 Systolic blood pressure 133 mm[Hg] Tondra Mapus Other [employer] Other 09-29-2021 13:13-0400 Blood Pressure Location [facility] 09-29-2021 13:13-0400 Diastolic blood pressure 74 mm[Hg] [facility] 09-29-2021 13:13-0400 Heart rate 60 /min [facility] 09-29-2021 13:13-0400 Respiratory rate 16 /min [facility] [place] 09-29-2021 13:13-0400 Systolic blood pressure 138 mm[Hg] Gagan N[facility] [place] 07-17-2021 09:45-0400 Body height 170.18 cm Tondra Mapus Other [employer] Other 07-17-2021 09:45-0400 Body mass index (BMI) [Ratio] 30.69 kg/m2 Tondra Mapus Other [employer] Other 07-17-2021 09:45-0400 Body weight 88.91 kg Tondra Mapus Other [employer] Other 07-17-2021 09:45-0400 Diastolic blood pressure 73 mm[Hg] Tondra Mapus Other [employer] Other 07-17-2021 09:45-0400 Respiratory rate 16 /min Tondra Mapus Other [employer] Other 07-17-2021 09:45-0400 SaO2% (BldA) [Mass fraction] 97 % Tondra Mapus Other [employer] Other 07-17-2021 09:45-0400 Systolic blood pressure 163 mm[Hg] Tondra Mapus Other [employer] Other 06-06-2021 10:20-0500 Body height 170.18 cm Kingsley Latisha Other [employer] Other 06-06-2021 10:20-0500 Body mass index (BMI) [Ratio] 30.29 kg/m2 Kingsley Latisha Other [employer] Other 06-06-2021 10:20-0500 Body temperature 96.1 [degF] Kingsley Latisha Other [employer] Other 06-06-2021 10:20-0500 Body weight 87.73 kg Kingsley Latisha Other [employer] Other 06-06-2021 10:20-0500 Diastolic blood pressure 70 mm[Hg] Kingsley Latisha Other [employer] Other 06-06-2021 10:20-0500 Respiratory rate 18 /min Kingsley Latisha Other [employer] Other 06-06-2021 10:20-0500 SaO2% (BldA) [Mass fraction] 97 % Kingsley Latisha Other [employer] Other 06-06-2021 10:20-0500 Systolic blood pressure 160 mm[Hg] Kingsley Latisha Other [employer] Other 04-10-2021 09:15-0500 Body height 170.18 cm Tondra Mapus Other [employer] Other 04-10-2021 09:15-0500 Body mass index (BMI) [Ratio] 30.99 kg/m2 Tondra Mapus Other [employer] Other 04-10-2021 09:15-0500 Body weight 89.77 kg Tondra Mapus Other [employer] Other 04-10-2021 09:15-0500 Diastolic blood pressure 64 mm[Hg] Tondra Mapus Other [employer] Other 04-10-2021 09:15-0500 Respiratory rate 18 /min Tondra Mapus Other [employer] Other 04-10-2021 09:15-0500 SaO2% (BldA) [Mass fraction] 98 % Tondra Mapus Other [employer] Other 04-10-2021 09:15-0500 Systolic blood pressure 136 mm[Hg] Tondra Mapus Other [employer] Other 02-14-2021 10:00-0500 Body height 170.18 cm Kingsley Latisha Other [employer] Other 02-14-2021 10:00-0500 Body mass index (BMI) [Ratio] 30.98 kg/m2 Kingsley Latisha Other [employer] Other 02-14-2021 10:00-0500 Body temperature 96 [degF] Kingsley Latisha Other [employer] Other 02-14-2021 10:00-0500 Body weight 89.72 kg Kingsley Latisha Other [employer] Other 02-14-2021 10:00-0500 Diastolic blood pressure 60 mm[Hg] Kingsley Latisha Other [employer] Other 02-14-2021 10:00-0500 Respiratory rate 16 /min Kingsley Latisha Other [employer] Other 02-14-2021 10:00-0500 SaO2% (BldA) [Mass fraction] 97 % Kingsley Latisha Other [employer] Other 02-14-2021 10:00-0500 Systolic blood pressure 130 mm[Hg] Kingsley Latisha Other [employer] Other 01-03-2021 10:15-0400 Body height 170.18 cm Tondra Mapus Other [employer] Other 01-03-2021 10:15-0400 Body mass index (BMI) [Ratio] 31.01 kg/m2 Tondra Mapus Other [employer] Other 01-03-2021 10:15-0400 Body weight 89.81 kg Tondra Mapus Other [employer] Other 01-03-2021 10:15-0400 Diastolic blood pressure 67 mm[Hg] Tondra Mapus Other [employer] Other 01-03-2021 10:15-0400 Respiratory rate 16 /min Tondra Mapus Other [employer] Other 01-03-2021 10:15-0400 SaO2% (BldA) [Mass fraction] 99 % Arlen Kwong Other [employer] Other 01-03-2021 10:15-0400 Systolic blood pressure 151 mm[Hg] Arlen Ramírezus Other [employer] Other Encounters Encounter Date Encounter Type Care Provider Facility Start: 05-28-2024 End: 05-28-2024 Patient encounter procedure Harley Crespo DO Work Phone: [id number] Work Phone: Start: 05-28-2024 End: 05-28-2024 ambulatory Harley Crespo DO Work Phone: [facility] Work Phone: Start: 05-26-2024 End: 05-26-2024 ambulatory [facility] Start: 05-18-2024 ambulatory [facility] Start: 05-05-2024 Non-patient / Non-visit Benjam in Ball DO Work Phone: [facility] Work Phone: Start: 04-30-2024 End: 04-30-2024 ambulatory [facility] Work Phone: Start: 04-30-2024 End: 04-30-2024 Patient encounter procedure [facility] Work Phone: Start: 04-21-2024 ambulatory [facility] Start: 04-16-2024 End: 04-16-2024 Patient encounter procedure [facility] Work Phone: Start: 04-02-2024 End: 04-02-2024 Ashley flowslynn Tavera DPM Work Phone: [facility] Start: 04-02-2024 End: 04-02-2024 Bamboo flowsheet Kenneth Tavera DPM Work Phone: [facility] Start: 04-02-2024 End: 04-02-2024 Patient encounter procedure Kenneth Tavera DPM Work Phone: [facility] Comment on above: 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, without long-term current use of insulin ([facility]) (Primary Dx); Pain due to onychomycosis of toenails of both feet Start: 04-02-2024 End: 04-02-2024 ambulatory KENNETH TAVERA Not Available Start: 03-26-2024 ambulatory [facility] Start: 03-10-2024 End: 03-10-2024 ambulatory [facility] Start: 03-06-2024 ambulatory [facility] Start: 02-24-2024 End: 02-24-2024 Patient encounter procedure [facility] Work Phone: Start: 02-20-2024 ambulatory [facility] Start: 02-18-2024 Non-patient / Non-visit [facility] Work Phone: Start: 02-18-2024 Non-patient / Non-visit [facility] Work Phone: Start: 02-13-2024 Evaluation and management of inpatient YFN YOST [facility] Start: 02-13-2024 Evaluation and management of inpatient BONAVENTURE [facility] Start: 02-13-2024 Evaluation and management of inpatient BONAVENTURE [facility] Start: 02-13-2024 End: 02-14-2024 Evaluation and management of inpatient HEMALATHA LAGOS [facility] Start: 02-12-2024 Non-patient / Non-visit [facility] Work Phone: Start: 02-12-2024 Non-patient / Non-visit [facility] Work Phone: Start: 01-23-2024 End: 01-23-2024 Bamboo flowsheet Kenneth Tavera DPM Work Phone: [facility] Start: 01-23-2024 End: 01-23-2024 Bamboo flowsheet Kenneth Tavera DPM Work Phone: [facility] Start: 01-23-2024 End: 01-23-2024 Office outpatient visit 10 minutes Kenneth Tavera DPM Work Phone: [facility] Comment on above: Xerosis cutis (Prima ry Dx); Diabetes 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, without long-term current use of insulin ([facility]); Pain due to onychomycosis of toenails of both feet Start: 01-23-2024 End: 01-23-2024 ambulatory KENNETH TAVERA Not Available Start: 01-23-2024 End: 01-23-2024 ambulatory [facility] Work Phone: Start: 01-23-2024 End: 01-23-2024 Patient encounter procedure [facility] Work Phone: Start: 01-21-2024 ambulatory [facility] Start: 01-21-2024 Encounter for preprocedural cardiovascular examination [facility] Start: 01-16-2024 ambulatory [facility] Start: 01-10-2024 ambulatory [facility] Start: 01-09-2024 ambulatory [facility] Start: 01-07-2024 End: 01-07-2024 ambulatory [facility] Work Phone: Start: 01-07-2024 End: 01-07-2024 Patient encounter procedure [facility] [place] Work Phone: Start: 12-30-2023 Non-patient / Non-visit [facility] Work Phone: Start: 12-12-2023 End: 12-12-2023 ambulatory [facility] Work Phone: Start: 12-12-2023 End: 12-12-2023 Patient encounter procedure [facility] Work Phone: Start: 11-28-2023 ambulatory [facility] Start: 11-12-2023 End: 11-12-2023 ambulatory [facility] Start: 11-07-2023 End: 11-07-2023 ambulatory KENNETH TAVERA Not Available Start: 10-17-2023 End: 10-17-2023 ambulatory [facility] Work Phone: Start: 10-17-2023 End: 10-17-2023 Patient encounter procedure [facility] Work Phone: Start: 10-07-2023 End: 10-07-2023 ambulatory AB [facility] Start: 10-02-2023 ambulatory [facility] Start: 09-27-2023 Evaluation and management of inpatient [facility] Start: 09-27-2023 Evaluation and management of inpatient [facility] Start: 09-26-2023 Non-patient / Non-visit [facility] Work Phone: Start: 09-26-2023 Evaluation and management of inpatient [facility] Start: 09-26-2023 End: 09-28-2023 Evaluation and management of inpatient [facility] Start: 09-26-2023 Non-patient / Non-visit [facility] Work Phone: Start: 09-25-2023 ambulatory EMEKA CRISTOPHER [facility] Start: 09-24-2023 ambulatory KEVIN [facility] Start: 09-19-2023 ambulatory KEVIN [facility] Start: 09-09-2023 End: 09-09-2023 ambulatory NETOAB [facility] Start: 08-27-2023 Non-patient / Non-visit [facility] Work Phone: Start: 08-12-2023 End: 08-12-2023 ambulatory [facility] Work Phone: Start: 08-12-2023 End: 08-12-2023 Patient encounter procedure [facility] Work Phone: Start: 07-02-2023 End: 07-02-2023 ambulatory [facility] Work Phone: Start: 07-02-2023 End: 07-02-2023 Patient encounter procedure [facility] Neph[facility] Work Phone: Start: 06-24-2023 Non-patient / Non-visit [facility] Work Phone: Start: 06-18-2023 End: 06-18-2023 ambulatory [facility] Work Phone: Start: 06-18-2023 End: 06-18-2023 Patient encounter [facility] Work Phone: Start: 06-13-2023 Non-patient / Non-visit [facility] Work Phone: Start: 05-03-2023 End: 05-03-2023 Patient encounter procedure DO Harley Crespo Work Phone: [facility] Start: 04-30-2023 End: 04-30-2023 ambulatory Kingsley Latisha Other [facility] [employer] Other Start: 04-30-2023 Telephone encounter Noelle OAKLEY [facility] Start: 04-23-2023 End: 04-23-2023 ambulatory Tondra Mapus Other [employer] Other Start: 04-23-2023 Telephone encounter Tondra Varghese [facility] Start: 03-12-2023 (DM) Diabetes Tondra Varghese [facility] Start: 03-12-2023 End: 03-12-2023 ambulatory DO Harley Crespo Work Phone: [employer] Other Start: 03-12-2023 End: 03-12-2023 Discharged Recurring DO Harley Crespo Work Phone: [facility] Work Phone: Start: 03-12-2023 End: 03-12-2023 Patient encounter procedure DO Harley Crespo Work Phone: [facility] Work Phone: Start: 02-12-2023 End: 02-12-2023 ambulatory Harley Crespo Other [employer] Other Start: 02-12-2023 Telephone encounter Harley Crespo MONTE[facility] Start: 02-07-2023 End: 02-07-2023 ambulatory Harley Crespo Other [employer] Other Start: 02-07-2023 Telephone encounter Harley HERRMANN [facility] Start: 02-06-2023 End: 02-06-2023 ambulatory Tondra Varghese Other [employer] Other Start: 02-06-2023 Telephone encounter Tondra Varghese [facility] Start: 01-29-2023 End: 01-29-2023 ambulatory Harley Crespo Other [employer] Other Start: 01-29-2023 Telephone encounter Harley HERRMANN [facility] Start: 01-17-2023 End: 01-17-2023 ambulatory Tondra Mapus Other [employer] Other Start: 01-17-2023 Telephone encounter Tondra Mapus [facility] Start: 01-07-2023 End: 01-07-2023 ambulatory Harley Crespo Other [employer] Other Start: 01-07-2023 Office outpatient vi sit 25 minutes Kingsley Latisha [facility] Start: 01-07-2023 Telephone encounter Harley HERRMANN [facility] Start: 01-04-2023 End: 01-04-2023 ambulatory Kingsley Latisha Other [employer] Other Start: 01-04-2023 Telephone encounter Kingsley Latisha [facility] Start: 01-01-2023 End: 01-01-2023 ambulatory Kingsley Latisha Other [employer] Other Start: 01-01-2023 Telephone encounter Kingsley Latisha [facility] Start: 12-31-2022 End: 12-31-2022 ambulatory Harley Crespo Other [employer] Other Start: 12-31-2022 Office outpatient vi sit 25 minutes Harley Crespo [facility] Start: 12-31-2022 Telephone encounter Harley HERRMANN [facility] Start: 12-13-2022 End: 12-13-2022 ambulatory Denita Chairez Other [employer] Other Start: 12-13-2022 Nursing evaluation o f patient and report Denitaclarita Chairez [facility] Start: 11-23-2022 End: 11-23-2022 ambulatory Tondra Mapus Other [employer] Other Start: 11-23-2022 Telephone encounter Tondra Mapus [facility] Start: 10-12-2022 End: 10-12-2022 ambulatory Arlen Kwong Other [employer] Other Start: 10-12-2022 Telephone encounter Arlen Shane [facility] Start: 10-09-2022 End: 10-09-2022 ambulatory Harley Crespo Other [employer] Other Start: 10-09-2022 Telephone encounter Harley Crespo [facility] Start: 10-01-2022 End: 10-01-2022 ambulatory Harley Crespo Other [employer] Other Start: 10-01-2022 Telephone encounter Harley Crespo [facility] Start: 09-27-2022 End: 09-27-2022 ambulatory Kingsley Latisha Other [employer] Other Start: 09-27-2022 Telephone encounter Kingsley Latisha [facility] Start: 09-26-2022 End: 09-26-2022 ambulatory Harley Crespo Other [employer] Other Start: 09-26-2022 Telephone encounter Harley Crespo [facility] Start: 09-19-2022 End: 09-19-2022 ambulatory Kingsley Latisha Other [employer] Other Start: 09-19-2022 Telephone encounter Kingsley Latisha [facility] Start: 09-12-2022 End: 09-12-2022 ambulatory Harley Crespo Other [employer] Other Start: 09-12-2022 Telephone encounter Harley Crespo [facility] Start: 09-03-2022 End: 09-03-2022 ambulatory Harley Crespo Other [employer] Other Start: 09-03-2022 Telephone encounter Harley Crespo [facility] Start: 08-31-2022 End: 08-31-2022 ambulatory Harley Crespo Other [employer] Other Start: 08-31-2022 Office outpatient vi sit 25 minutes Harley Crespo [facility] Start: 08-10-2022 End: 08-10-2022 ambulatory Harley Cherie Other [employer] Other Start: 08-10-2022 Telephone encounter Harley Crespo FP [facility] Start: 08-09-2022 End: 08-10-[address] HARLEY CRESPO [employer] Other Start: 08-09-2022 Telephone encounter Kingsley Latisha [facility] Start: 07-02-2022 End: 07-02-2022 ambulatory Kingsley Latisha Other [employer] Other Start: 07-02-2022 Office outpatient vi sit 25 minutes Kingsley Latisha [facility] Start: 06-28-2022 End: 06-28-2022 ambulatory Harley Crespo Other [employer] Other Start: 06-28-2022 Patient encounter procedure Harley Crespo [facility] Start: 06-26-2022 (DM) Diabetes Tondra Mapus [facility] Start: 06-26-2022 End: 06-26-2022 ambulatory Tondra Mapus Other [employer] Other Start: 06-25-2022 End: 06-26-2022 ambulatory KINGSLEY LATISHA Facility:[facility] Start: 06-18-2022 End: 06-19-2022 ambulatory TONDRA MAPUS Facility:[facility] Start: 06-05-2022 End: 06-06-[address] HARLEY CRESPO Facility:[facility] Start: 05-26-2022 End: 05-26-2022 ambulatory Harley Crespo Other [employer] Other Start: 05-26-2022 Telephone encounter Harley Crespo [facility] Start: 05-25-2022 End: 05-25-2022 ambulatory Tondra Mapus Other [employer] Other Start: 05-25-2022 Telephone encounter Tondra Mapus [facility] Start: 05-03-2022 End: 05-04-[address] PINKY BISHOP Facility:[facility] Start: 04-18-2022 End: 04-19-[address] PINKY BISHOP Facility:[facility] Start: 03-22-2022 End: 03-23-[address] HIGINIO FLANAGAN Facility:[facility] Start: 03-20-2022 (DM) Diabetes Tondra Mapus [facility] Start: 03-20-2022 End: 03-20-2022 ambulatory Tondra Mapus Other [employer] Other Start: 03-12-2022 End: 03-13-2022 Evaluation and management of inpatient DR PARUL CHU Facility:[facility] Start: 03-09-2022 End: 03-10-[address] SHANNON LANDIS Facility:[facility] Start: 03-02-2022 End: 03-03-[address] HARLEY CRESPO Facility:[facility] Start: 02-19-2022 End: 02-19-2022 ambulatory Tondra Mapus Other [employer] Other Start: 02-19-2022 Telephone encounter Tondra Mapus [facility] Start: 02-08-2022 End: 02-08-2022 ambulatory Tondra Mapus Other [employer] Other Start: 02-08-2022 Telephone encounter Tondra Mapus [facility] Start: 01-15-2022 End: 01-17-2022 Evaluation and management of inpatient DO Harley Crespo Work Phone: [facility] [place] [facility] Start: 01-15-2022 End: 01-15-[address] HARLEY CRESPO Facility:[facility] Start: 12-18-2021 Registered Mauricio Valdez in [place] Work Phone: [facility] Start: 12-18-2021 (DM) Diabetes Tondra Mapus [facility] Start: 12-18-2021 End: 12-18-2021 ambulatory Tondra Mapus Other [employer] Other Start: 12-08-2021 End: 12-09-[address] HARLEY CRESPO Facility:[facility] Start: 11-30-2021 End: 12-01-2021 ambulatory KINGSLEY GOOD Facility:[facility] Start: 11-24-2021 End: 11-25-[address] HARLEY CRESPO Facility:[facility] Start: 11-16-2021 End: 11-16-2021 ambulatory Tondra Mapus Other [employer] Other Start: 11-16-2021 Telephone encounter Tondra Mapus [facility] Start: 2021 End: 2021 ambulatory Tondra Mapus Other [employer] Other Start: 2021 Telephone encounter Tondra Mapus [facility] Start: 10-31-2021 End: 10-31-2021 ambulatory Tondra Mapus Other [employer] Other Start: 10-31-2021 Telephone encounter Tondra Mapus [facility] Start: 10-27-2021 End: 10-27-[address] HARLEY CRESPO Facility:[facility] Start: 10-20-2021 Telephone encounter Abdon martins MD Work Phone: Hematology/Oncology Comment on above: Lab Orders Start: 10-03-2021 End: 10-04-[address] GAGAN DAVID . Facility:[facility] Start: 09-29-2021 End: 09-29-2021 Patient encounter procedure Gagan Sanchez FRANKIE General Surgery [facility] Start: 09-04-2021 End: 09-05-[address] HARLEY CRESPO Facility:[facility] Start: 08-26-2021 End: 08-27-[address] HARLEY CRESPO Facility:[facility] Start: 07-24-2021 End: 07-24-2021 ambulatory Tondra Mapus Other [employer] Other Start: 07-24-2021 Telephone encounter Tondra Mapus [facility] Start: 07-17-2021 (DM) Diabetes Tondra Mapus [facility] Start: 07-17-2021 End: 07-17-2021 ambulatory Tondra Mapus Other [employer] Other Start: 06-19-2021 End: 06-19-2021 ambulatory Shannon Escobar Other [employer] Other Start: 06-19-2021 Telephone encounter Shannon Escobar [facility] Start: 06-06-2021 End: 06-06-2021 ambulatory Kingsley Latisha Other [employer] Other Start: 06-06-2021 Office outpatient vi sit 25 minutes Kingsley Latisha [facility] Start: 05-22-2021 End: 05-22-2021 ambulatory Tondra Mapus Other [employer] Other Start: 05-22-2021 Telephone encounter Tondra Mapus [facility] Start: 05-16-2021 End: 05-16-2021 ambulatory Tondra Mapus Other [employer] Other Start: 05-16-2021 Telephone encounter Tondra Mapus [facility] Start: 04-10-2021 (DM) Diabetes Tondra Desireeus [facility] Start: 04-10-2021 End: 04-10-2021 ambulatory Tondra Mapus Other [employer] Other Start: 04-10-2021 Telephone encounter Tondra Mapus [facility] Start: 02-14-2021 End: 02-14-2021 ambulatory Kingsley Latisha Other [employer] Other Start: 02-14-2021 Patient encounter procedure Kingsley Latisha [facility] Start: 02-14-2021 Telephone encounter Tona Varghese Shane [facility] Start: 01-03-2021 (DM) Diabetes Tondra Desireeus [facility] Start: 10-14-2018 End: 10-15-2018 Patient encounter procedure [facility] Facility:[facility] Start: 02-24-2018 End: 02-25-2018 Evaluation and management of inpatient [facility] Facility:[facility] Procedures Date Procedure Procedure Detail Performing [...] Gagan DAVID Start: 04-01-2009 Cardiac catheterization Gagan MORGANL Start: 04-01-2007 Percutaneous transluminal coronary angioplasty Gagan DAVID Start: 04-01-2004 Cardiac catheterization Gagan DAVID Start: 04-01-2002 Cardiac catheterization Gagan DAVID Start: 04-01-1991 Coronary artery bypass graft Gagan Hastings Percutaneous coronary intervention Gagan DAVID Comment on above: stent/vein graft Plan of Treatment Date Care Activity Detail Author Start: 07-11-2031 [facility] Start: 06-11-2024 End: 06-11-2024 Patient encounter procedure 06/11/2024 11:50 AM EDT Office Visit [facility] [address] [place] [address] Kenneth Tavera DPM [address] [facility] [address] [place] [address] [facility] Start: 04-02-2024 End: 04-02-2024 Patient encounter procedure [facility] Comment on above: 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, without long-term current use of insulin (CMS/HCC) (Primary Dx); Pain due to onychomycosis of toenails of both feet Start: 01-23-2024 End: 01-23-2024 Patient encounter procedure 01/23/2024 11:30 AM EDT Office Visit [facility] [address] [facility] [address] [place] [address] Kenneth Tavera DPM [address] [facility] [address] [place] [address] Diabetes 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, without long-term current use of insulin (CMS/HCC) (Primary Dx); Pain due to onychomycosis of toenails of both feet [facility] Comment on above: 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, without long-term current use of insulin (CMS/HCC) (Primary Dx); Pain due to onychomycosis of toenails of both feet Start: 10-26-2023 DIABETES SCREEN DIABETES SCREEN [facility] Start: 10-17-2023 Patient referral [facility] Work Phone: Start: 08-16-2023 Screening for malign ant neoplasm of colon FIT-DNA [facility] Start: 01-17-2022 [facility] Start: 01-17-2022 Radionuclide myocard ial perfusion stress study NM rachel perf SPECT rest & str [facility] Start: 01-17-2022 Referral to cardiac rehabilitation program [facility] Start: 01-16-2022 Hospital admission [facility] Start: 01-15-2022 Hospital admission [facility] Start: 11-30-2021 Influenza vaccination INFLUENZA (#1) [facility] Start: 10-24-2021 End: 12-24-2021 CBC W Auto Differential panel - Blood CBC + DIFF Lab Routine Monoclonal gammopathy Expected: 10/24/2021, Expires: 12/24/2021 [facility] Work Phone: Comment on above: Expected: 10/24/2021 , Expires: 12/24/2021 Start: 04-25-2021 Adult depression screening assessment DEPRESSION SCREENING [facility] Start: 04-01-2021 ADVANCE DIRECTIVE DISCUSSION ADVANCE DIRECTIVE DISCUSSION [facility] Start: 11-21-2020 COVID-19 VACCINE (3 - Booster for Pfizer series) COVID-19 VACCINE (3 - Booster for Pfizer series) [facility] Start: 11-07-2001 SHINGRIX VACCINE (1 of 2) SHINGRIX VACCINE (1 of 2) [facility] Start: 11-07-1996 COLOGUARD (FIT-DNA) COLOGUARD (FIT-D NA) [facility] Start: 11-07-1996 Colonoscopy COLONOSCOPY [facility] Start: 11-07-1996 COLORECTAL CANCER SCREENING COLORECTAL CANCER SCREENING [facility] Start: 11-07-[address] COLONOGRAPHY [facility] Start: 11-07-1996 FECAL OCCULT BLOOD FECAL OCCULT BLOO D [facility] Start: 11-07-1996 SIGMOIDOSCOPY SIGMOIDOSCOPY [facility] Start: 11-07-1986 LIPID SCREEN LIPID SCREEN [facility] Start: 11-07-1970 Urine microalbumin profile DTAP,TDAP,TD (1 - Tdap) [facility] Start: 11-07-1969 HEPATITIS C SCREENING HEPATITIS C SC APURVA [facility] Start: 1950 ABDOMINAL AORTIC ANEURYSM SCREENING ABDOMINAL AORTIC ANEURYSM SCREENING [facility] Start: 1950 Screening for malign ant neoplasm of colon [facility] Comprehensive metabo lic 1999 panel - Serum or Plasma [facility] Comprehensive metabo lic 1999 panel - Serum or Plasma [facility] Patient Education [facility] Work Phone: Patient referral [facility] Work Phone: Renal function 1999 panel - Serum or Plasma [facility] Renal function 1999 panel - Serum or Plasma [facility] Immunizations Immunization Date Immunization Notes Care Provider Fa cility 12-12-2023 influenza, high dose seasonal, preservative-free [facility] 12-13-2022 influenza, high dose seasonal, preservative-free Denita Mihaela Other [employer] Other 12-13-2022 influenza virus vaccine, unspecified formulation DO Harley Crespo Work Phone: [facility] 12-15-2021 influenza virus vaccine, unspecified formulation DO Harley Crespo Work Phone: [facility] 12-15-2021 influenza, high dose seasonal, preservative-free Harley Crespo Other [employer] Other 02-21-2021 COVID-19 mRNA, Comirnaty (Pfizer) DO hyaqu Work Phone: [facility] 06-21-2020 COVID-19 Vaccine Pfi zer - Documentation Purposes Only Tondra Mapus Other [facility] 05-30-2020 COVID-19 Vaccine Pfi zer - Documentation Purposes Only Tondra Mapus Other [facility] 01-17-2018 pneumococcal polysaccharide vaccine, 23 valent Abdon Walker MD Work Phone: [facility] 01-17-2018 Seasonal trivalent influenza vaccine, adjuvanted, preservative free Abdon Walker MD Work Phone: [facility] 01-16-2017 influenza, high dose seasonal, preservative-free Abdon Walker MD Work Phone: [facility] 11-30-2016 influenza, injectabl e, quadrivalent, preservative free Abdon Walker MD Work Phone: [facility] 11-14-2016 pneumococcal conjuga te vaccine, 13 valent Abdon Walker MD Work Phone: [facility] 04-02-2016 pneumococcal polysaccharide vaccine, 23 valent Tondra Mapus Other [facility] 01-23-2012 influenza, seasonal, injectable Abdon Walker MD Work Phone: [facility] 12-13-2010 influenza, seasonal, injectable Abdon Walker MD Work Phone: [facility] 01-27-2009 novel [id number], preservative-free, injectable Abdon Walker MD Work Phone: [facility] 01-19-2008 influenza virus vaccine, whole virus Abdon Walker MD Work Phone: [facility] Payers Date Payer Category Payer Self-pay [id number] 2021 Private Health Insurance [facility] [place] [id number] 2019 Unknown MMO MMO MEDICARE SUPPLEMENT [id number] 2019-Present [phone] [address] [place] [address] Indemnity [id number] 2016 Medicare MEDICARE MEDICAR E A AND B [id number] 2016-Present [phone] [address] [address] [place] [address] Medicare [id number] 2016 Medicare MEDICARE [id number] 1959 Medicare [id number] 1959 Unknown [id number] 2.16.840.1.971204.19 1951 Unknown [id number] 2.16.840.1.298229.3.579.2. 647 1951 Unknown [id number] 2.16.840.1.433929.3.579.2. 647 1951 Unknown [id number] 2.16.840.1.613509.3.579.2. 593 1951 Unknown [id number] 2.16.840.1.195362.3.579.2. 593 1951 Unknown [id number] 2.16.840.1.967676.3.579.2. 593 1951 Unknown [id number] 2.16.840.1.613972.3.579.2. 593 1951 Unknown [id number] 2.16.840.1.187344.3.579.2. 593 1951 Unknown [id number] 2.16.840.1.477357.3.579.2. 593 1951 Unknown [id number] 2.16.840.1.680425.3.579.2. 593 1951 Unknown [id number] 2.16.840.1.644163.3.579.2. 593 1951 Unknown [id number] 2.16.840.1.442955.3.579.2. 593 1951 Unknown [id number] 2.16.840.1.641888.3.579.2. 593 1951 Unknown [id number] 2.16.840.1.775506.3.579.2. 593 1951 Unknown [id number] 2.16.840.1.723294.3.579.2. 593 1951 Unknown [id number] 2.16.840.1.859714.3.579.2. 593 1951 Unknown [id number] 2.16.840.1.948881.3.579.2. 593 1951 Unknown [id number] 2.16.840.1.722346.3.579.2. 593 1951 Unknown [id number] 2.16.840.1.428888.3.579.2. 593 1951 Unknown [id number] 2.16.840.1.135118.3.579.2. 593 1951 Unknown [id number] 2.16.840.1.422936.3.579.2. 593 1951 Unknown [id number] 2.16.840.1.772179.3.579.2. 1259 1951 Unknown [id number] 2.16.840.1.649902.3.579.2. 1259 1951 Unknown [id number] 2.16.840.1.832342.3.579.2. 1259 Unknown [id number] Unknown HCAP/HFA/FAP Active [id number] Unknown HCAP/HFA/FAP Active [id number] Unknown [id number] 2.16.840.1.879922.3.579.2. 531 Social History Date Type Detail Facility Unknown if ever smoked [employer] Other Start: 11-07-2023 End: 01-23-2024 Sex Assigned At [employer] Other Start: 09-29-2021 End: 05-28-2024 Tobacco smoking status Ex-smoker (finding) [facility] [place] Tobacco smoking status Never [facility] Start: 07-23-2018 End: 10-12-2022 Tobacco use and exposure Smokeless tobacco non-user [facility] Start: 10-25-2020 Alcohol intake Ex-drinker (finding) [facility] Start: 1950 Sex Assigned At Not on file [facility] Start: 1950 Sex Assigned At Male F [facility] Start: 10-12-2022 [facility] tobacco [facility] Start: 11-07-2023 End: 04-02-2024 Alcoholic beverage intake Defer [facility] Start: 11-07-2023 End: 01-23-2024 History of Social function [facility] Start: 04-30-2024 End: 05-29-2024 Sex Male (finding) [facility] Medical Equipment Procedure Code Equipment [...] Facility 01-17-2022 Functional status Patient at Baseline [facility] Work Phone: 09-29-2021 Functional Status N/A General [facility] Mental Status Date Assessment Result Facility 01-17-2022 Cognitive function Cognitive Sta tus Patient at Baseline [facility] Work Phone: Clinical Notes 01-03-2021 to 04-16-2024 Note Date & Type Note Facility 04-16-2024 Evaluation note Diagnosis Onset Date Resolution Chronic HFrEF (heart failure with reduced ejection fraction) acute April 16, 2024 8:19am Chronic kidney disease acute Ja nuary 2024 8:19am HTN (hypertension) acute 2024 8:19am Hypercholesterolemia acute Desean lee ann 2024 8:19am Ischemic cardiomyopathy acute J anuary 2024 8:19am Pulmonary nodule acute April 16, 2024 8:19am Type 2 diabetes mellitus with hyperglycemia acute April 16, 2024 8:19am BMI 28.0-28.9,adult acute Aprua ry 2024 9:21am Dietary counseling and surveillance acute April 30, 2024 9:21am HTN (hypertension) acute y 2024 9:21am DM2 (diabetes mellitus, type 2) deleted April 30, 2024 9:21am HLD (hyperlipidemia) deleted Desean nance 2024 9:21am [facility] Work Phone: 1(780) 893-752901-02-2025 History of Present illness Narrative* Kenneth Mota Jeff, DPM - 04/02/2024 11:50 AM EST Patient: Lani Lizama : 1950 PCP: Harley [...] retinopathy (CMS/HCC) HTN (hypertension) (CMS/HCC) Hypercholesteremia (CMS/HCC) [place] (myocardial infarction) (CMS/[facility]) 2021 Two total: 02/20, 03/22 Type 1 [...] in the morning., Disp: , Rfl: HYDROcodone-acetaminophen ([place]) 5-325 MG tablet, TAKE 1 TABLET BY [...] Strain: Low Risk (02/13/2024) Received from [facility] Overall Financial Resource Strain (CARDIA) Difficulty of Paying Living Expenses: Not very hard Food Insecurity: No Food Insecurity (02/13/2024) Received from [facility] Hunger Vital Sign Within the past 12 months, you worried that your food would run out before you got the money to buymore.: Never true Ran Out of Food in the Last Year: Not on file Transportation Needs: No Transportation Needs (02/13/2024) Received from [facility] Transportation In the past 12 months, has lack of transportation kept you from medical appointments or from getting medications?: No Lack of Transportation (Non-Medical): Not on file Physical Activity: Not on file Stress: Not on file Social Connections: Not on file Intimate Partner Violence: Unknown (02/13/2024) Received from [facility] Humiliation, Afraid, Rape, and Kick questionnaire Fear of Current or Ex-Partner: No Emotionally Abused: Not on file Physically Abused: Not on file Sexually Abused: Not on file Housing Stability: Low Risk (02/13/2024) Received from [facility] Housing Stability Vital Sign In the last 12 months, was there a time when you were not able to pay the mortgage or rent on time?: No Number of Times Moved in the Last Year: Not on file At any time in the past 12 months, were you homeless or living in a half-way (including now)?: No ROS: General: denies fever, [...] and negative PT pedal pulses NEURO: 5.07 [place]un monofilament test diminished to digits and forefoot bilaterally 125Hz tuning fork diminished to 1st MPJ bilaterally ORTHO: Positive pain on palpation to nails 1 through 10 ASSESSMENT 1. Diabetes 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, without long-term current use of insulin ([facility]) 2. Pain due to onychomycosis of toenails [...] him Kenneth Tavera DPM [facility] [id number] NoteUT Cardiology Consult Note Reason for visit: Complete heart block on event monitor, HFrEF 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%, atrial tachycardia 03/10/24 Patient here for 5 mo follow up bradycardia, complete heart block s/p PPM per Dr. Bishop. He was also admitted to [facility] for NSTEMI last month. Underwent heart cath with Dr. Pena on 02/12. He was started on Ranexa and lisinopril was stopped. Denies chest pain, SOB, and palpitations. Gets lightheaded at times, but no syncopal episodes. 05/07/23 Patient is s/p BiV ICD. he feels much better and believes that he is gone from 4/0 to 7/10 with PUBLIC RELATIONS STUDIES DIRECTOR. patient has got good device threshold. he [...] and hypertension. He was recently admitted to [facility] for NSTEMI. Had inpatient stress test and heart cath. Denies SOB but still having chest pain and has taken nitroglycerin a few times for relief. Had CT chest last week s/p discharge. Cardiac catheterization revealed patent bypass grafts and worsening akiak vessel disease. Medications were adjusted. I had [...] (CMS/HCC) Hyperlipidemia Hypertension PVD (peripheral vascular disease) ([facility]/HCC) Third degree heart block ([facility]) PSH: Past Surgical History: Procedure Laterality Date CARDIAC CATHETERIZATION 07/12/2020 CARDIAC CATHETERIZATION 10/15/2018 CARDIAC CATHETERIZATION 02/24/2018 CARDIAC CATHETERIZATION 09/27/2015 CORONARY ARTERY BYPASS GRAFT CORONARY STENT PLACEMENT SH: Social Determinants of Health Tobacco Use: Low Risk (01/23/2024) [facility] Patient History Smoking Tobacco Use: Never Smokeless Tobacco Use: Never Passive Exposure: Not on file Alcohol Use: Not At Risk (03/13/2018) Received from [employer] Frequency of Alcohol Consumption: Never Average [...] Abused: Not on f (more content not included)...[facility]11-25-2024 Evaluation note* Diagnosis Onset Date Resolution Status Admit Date Chronic HFrEF (heart failure with reduced ejection fraction) acute Novem olivia 2023 9:29am Chronic kidney disease acute No vember 2023 9:29am HTN (hypertension) acute Novemb er 2023 9:29am Hypercholesterolemia acute Nove mber 2023 9:29am Ischemic cardiomyopathy acute N ovember 2023 9:29am Pulmonary nodule acute February 24, 2024 9:29am Type 2 diabetes mellitus wit h hyperglycemia acute February 23, 2 024 9:29am Controlled type 2 diabetes mellitus with diabetic peripheral angiopathy wit deleted February 23, 024 9:29am Chronic HFrEF (heart failure with reduced ejection fraction) acute 2024 8:19am Chronic kidney disease acute Ja nuary 2024 8:19am HTN (hypertension) acute 2024 8:19am Hypercholesterolemia acute 2024 8:19am Ischemic cardiomyopathy acute J anuary 2024 8:19am Pulmonary nodule acute April 16, 2024 8:19am Type 2 diabetes mellitus wit h hyperglycemia acute April 16 8:19am BMI 27.0-27.9,adult acute 2024 9:21am Dietary counseling and surveillance acute April 30 9:21am HTN (hypertension) acute 2024 9:21am DM2 (diabetes mellitus, type 2) indio soraya April 30, 2024 9:21am HLD (hyperlipidemia) deleted 2024 9:21am [facility] Work Phone: 1(397) 269-929911-15-2024 NoteHospital Medicine Discharge Summary Final Discharge Diagnosis: NSTEMI CAD s/p CABG, PCI 08/2023 Chronic heart failure with reduced ejection fraction, NYHA class II Insulin-dependent type 2 diabetes mellitus Chronic kidney disease stage III A Third degree AV block with AICD/pacemaker Essential hypertension Carotid stenosis Hyperlipidemia Peripheral vascular disease Admission Diagnosis: NSTEMI (non-ST elevated myocardial infarction) ([facility]) [I21.4] Hospital course: Lani Lizama is an 73 y.o. male who came from Transferred from [facility] with NSTEMI with NSTEMI. 71-year-old gentleman with [...] procedure on that. Patient was transferred from [facility] to [facility] where he was seen for chest pain that has been going on for most of the day causing him to take nitroglycerin on 5 separate incidences and with intensification of the chest pain at shortening intervals that caused him to call the ambulance. At [facility] workup did show that patient had rising troponins initial 1 was 23 and then 85 isa intensity troponin. There was no mention change on the EKG as was reported to me by the ER physician Dr. Lagos at [facility]. Other workup that was done at [facility] included basic metabolic panel that showed a [...] history as above. The ER physician from [facility] had spoken to our fingerprint clerk here who accepted the patient for transfer to [facility] for possible trip to the [facility] very early this morning depending on the [...] Provider Department Center 03/10/2024 10:45 AM [facility] Your medication list START taking these [...] tablet Commonly (more content not included)...[facility] 02-13-2024 NoteHospital Medicine Daily Progress Note - 02/13/2024 8:36 AM; Room: [address] [place] [address] Admission: 02/13/2024 2:53 AM; Length of stay: 0 days THE HOSPITALIST TEAM PREFERS TO USE [employer] CHAT FOR COMMUNICATION 7AM-7PM. IF I DO NOT RESPOND WITHIN 15 MINUTES, PLEASE PAGE ME/CALL THROUGH THE SURGICAL ATTENDANT. FROM 7PM-7AM, PLEASE PAGE [phone](COVR) Code Status: Full Code Barriers to Discharge: NSTEMI Expected Discharge Date: 2-3 days Discharge Destination: home Overview Patient is seen for evaluation and management of chest pain. Subjective Patient was examined at bedside resting comfortably. He presented overnight to ED after transfer from [place]. He states that he had crushing chest [...] NSTEMI (non-ST elevated myocardial infarction) ([facility]) Active Problems: Coronary atherosclerosis Essential hypertension History of coronary artery bypass surgery Mixed hyperlipidemia Stage 3 chronic kidney disease ([facility]) Chest pain Type 2 diabetes mellitus with hyperglycemia ([facility]) PVD (peripheral vascular disease) ([facility]) Carotid stenosis, asymptomatic Assessment and Plan Lani Lizama is a 73 year old male with a past medical history of CAD with 9 stents, 5 vessel CABG, HTN, HLD, DM2, third degree AV block with pacemaker/AICD presented as a transfer from [place] ED with worsening crushing, radiating chest pain. Patient is being admitted to [facility] and cardiology has been consulted. Tentative plan [...] isosorbide mononitra (more content not included)...[facility]11-14-2024 NoteHospital Medicine History and Physical 02/13/2024 3:40 AM THE HOSPITALIST TEAM PREFERS TO USE [employer] FOR NON-URGENT COMMUNICATION 7AM-7PM. IF I DO NOT RESPOND WITHIN 20 MINUTES OR URGENT MATTERS, PLEASE CALL THROUGH THE SURGICAL ATTENDANT. FROM 7PM-7AM, PLEASE PAGE [phone](COVR). Chief Complaint No chief complaint on file. History of Present Illness Lani Lizama is an 73 y.o. male who came from Transferred from [facility] with NSTEMI with NSTEMI. 71-year-old gentleman with [...] procedure on that. [facility] [facility] where he was seen for chest pain that has been going on for most of the day causing him to take nitroglycerin on 5 separate incidences and with intensification of the chest pain at shortening intervals that caused him to call the ambulance. At [facility] workup did show that patient had rising troponins initial 1 was 23 and then 85 isa intensity troponin. There was no mention change on the EKG as was reported to me by the ER physician Dr. Lagos at [facility]. Other workup that was done at [facility] included basic metabolic panel that showed a [...] history as above. The ER physician from [facility] had spoken to our fingerprint clerk here who accepted the patient for transfer to [facility] for possible trip to the [facility] very early this morning depending on the [...] NSTEMI (non-ST elevated myocardial infarction) ([facility]/HCC) Active Problems: Coronary atherosclerosis Essential hypertension History of coronary artery bypass surgery Mixed hyperlipidemia Stage 3 chronic kidney disease (CMS/HCC) Chest pain Type 2 diabetes mellitus with hyperglycemia (CMS/HCC) PVD (peripheral vascular disease) ([facility]) Carotid stenosis, asymptomatic Assessment and Plan PLAN OF CARE: 71-year-old gentleman with very profuse history of cardiovascular disease including prior CAD with stents and CABG as well as hypertension and HLD comes seen with acute NSTEMI. Patient is being admitted to [facility] and cardiology has been consulted with possible trip to the [facility] at the earliest possible time by cardiology. [...] cardiology (done) (more content not included)...[facility]10-24-2024 History of Present illness Narrative* Kenneth Mota Jeff, DPM - 01/23/2024 11:30 AM EDT Patient: [...] has only been using prescribed or recommended [id number] cream with some improvement. Patient also has longstanding history of multiple MIs and cardiac history Allergies: Allergies Allergen Reactions Other Other Reaction(s): Unknown Received name: Nkda Past Medical History: Past Medical History: Diagnosis Date Diabetic retinopathy (CMS/HCC) HTN (hypertension) (CMS/HCC) Hypercholesteremia (CMS/HCC) [place] (myocardial infarction) (CMS/HCC) 2021 Two total: 02/20, [...] in the morning., Disp: , Rfl: HYDROcodone-acetaminophen ([place]) 5-325 MG tablet, TAKE 1 TABLET BY [...] Strain: Low Risk (09/26/2023) Received from [facility] Overall Financial Resource Strain (CARDIA) Difficulty of Paying Living Expenses: Not very hard Food Insecurity: No Food Insecurity (09/26/2023) Received from [facility] Hunger Vital Sign Within the past 12 months, you worried that your food would run out before you got the money to buymore.: Never true Ran Out of Food in the Last Year: Not on file Transportation Needs: No Transportation Needs (09/26/2023) Received from [facility] Transportation In the past 12 months, has lack of transportation kept you from medical appointments or from getting medications?: No Lack of Transportation (Non-Medical): Not on file Physical Activity: Not on file Stress: Not on file Social Connections: Not on file Intimate Partner Violence: Unknown (09/26/2023) Received from [facility] Humiliation, Afraid, Rape, and Kick questionnaire Fear of Current or Ex-Partner: No Emotionally Abused: Not on file Physically Abused: Not on file Sexually Abused: Not on file Housing Stability: Low Risk (09/26/2023) Received from [facility] Housing Stability Vital Sign Unable to [...] and negative PT pedal pulses NEURO: 5.07 [place]un monofilament test diminished to digits and forefoot bilaterally 125Hz tuning fork diminished to 1st MPJ bilaterally ORTHO: Positive pain on palpation to nails 1 through 10 ASSESSMENT 1. Diabetes 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, without long-term current use of insulin ([facility]) 2. Pain due to onychomycosis of toenails [...] him Kenneth Tavera DPM documented in this encounterGeneral Leonard Wood Army Community [id number] NoteBEL[facility]IC [facility] Note Chief Complaint: Patient here for follow up [facility] for NSTEMI. Underwent PCI on 09/27/[address] Foreman. Says he feels much better s/p intervention. Denies chest pain, SOB, palpitations, and lightheadedness/syncope. HPI: Lani Lizama is a 72 y.o. male Hospital Medicine Discharge Summary Final Discharge Diagnosis: #NSTEMI #chronic HFrEF NYHA class I #CAD #HTN #Diabetes #Hx bradycardia Admission Diagnosis: NSTEMI (non-ST elevated myocardial infarction) ([facility]) [I21.4] Hospital course: 72-year-old male with past medical history significant for CAD status post CABG x 5 vessels and history of 7 PCI's who presented to the hospital due to chest pain. The patient does have HFrEF with an EF of 15 to 20% status post BiV PUBLIC RELATIONS STUDIES DIRECTOR-D. Patient reports compliance with his medications and that he is not requiring diuretics. Initial evaluation at the outside hospital showed elevated high-sensitivity troponins and he was sent to [facility] for an evaluation by cardiology. Patient [...] Coronary artery disease, Diabetes mellitus ([facility]), Hyperlipidemia, Hypertension, PVD (peripheral vascular disease) ([facility]), and Third degree heart block ([facility]). Surgical History He has a past surgical [...] 27.88 kg (more content not included)...[facility]06-29-2024 Note Attestation signed by Kevin Arteaga MD at [...] Value Ventricular Rate 78 Atrial Rate 78 AL Interval 160 QRS DURATION 144 QT Interval 444 QTC CALCULATION(BAZETT) 506 P [place] 49 R-[place] -41 T Wave [place] 106 Impression Atrial-sensed ventricular-paced rhythm Abnormal ECG When compared with ECG of 26-SEP-2023 18:59, Vent. rate has decreased BY 3 BPM Lab Results Component Value Date TROPONINI 3.05 (HH) 09/27/2023 Complete Echo (TTE) w/wo Imaging Agent, Strain, 3D, Bubble Study Result Date: 09/27/2023 1 1 [facility] Heart Station [address] [place] [address] [phone] (fax) Echocardiogram-[facility] Name: LANI LIZAMA Study Date: 09/27/2023 07:42 AM B/P: 118 mmHg/57 mmHg (more content not included)...[facility] 09-28-2023 NoteHospital Medicine Discharge Summary Final Discharge Diagnosis: #NSTEMI #chronic HFrEF NYHA class I #CAD #HTN #Diabetes #Hx bradycardia Admission Diagnosis: NSTEMI (non-ST elevated myocardial infarction) (CMS/[facility]) [I21.4] Hospital course: 72-year-old male with past medical history significant for CAD status post CABG x 5 vessels and history of 7 PCI's who presented to the hospital due to chest pain. The patient does have HFrEF with an EF of 15 to 20% status post BiV PUBLIC RELATIONS STUDIES DIRECTOR-D. Patient reports compliance with his medications and that he is not requiring diuretics. Initial evaluation at the outside hospital showed elevated high-sensitivity troponins and he was sent to [facility] for an evaluation by cardiology. Patient [...] Results from last 7 days Lab Units 09/28/2341309/27/23 0359 WBC AUTO 10*3/uL 7.88 7.95 HEMOGLOBIN g/dL 14.4 15.3 HEMATOCRIT % 43.4 46.2 MCV fL 85.6 86.7 PLATELETS AUTO 10*3/uL 159 158 Chemistry: Results from last 7 days Lab Units 09/28/234 09/27/23 0359 09/26/23 1734 SODIUM mmol/L 137 [...] Heidy Dee MD Hospital Medicine 09/28/2023 11:15 AMKettering Health [facility]06-28-2024 NotePatient: Lani Lizama Procedure Information Date/Time: 09/27/23 1300 Procedure: Coronary angiography Location: [facility] MANAGER 3 / [facility] (Cath) Providers: Luisito Foreman [...] fellow and attending. Additional Equipment RequestsKettering Health Hamilton06-28-2024 Note Adult Nutrition Assessment: Name: Lani Lizama Date: 1950 Date of Visit: 09/27/23 Admission Dx: NSTEMI (non-ST elevated myocardial infarction) (CMS/HCC) [I21.4] Reason for assessment: high risk -wound Information obtained from: patient, family, medical record, and nursing -son at bedside Past Medical History: Diagnosis Date Carotid artery stenosis Coronary artery disease Diabetes mellitus ([facility]) Hyperlipidemia Hypertension PVD (peripheral vascular disease) ([facility]) Third degree heart block ([facility]) CABG x5, stents, EF 30%, HF Current [...] (H) 09/27/2023 035 CREATININE 1.56 (H) 09/27/2023 035 NA 140 09/27/2023 035 K 4.3 09/27/2023 [...] Question: Reason for NPO: Answer: Operation/Procedure 09/26/23 1383 Percent Meals Eaten (%): 100 (09/26/23 1851 : Carolina Bragg RN) Nutrition Risk: Low Malnutrition Assessment: Patient at risk for malnutrition according to hospital criteria, but does not meet the clinical characteristics per the Academy of Nutrition and Dietetics, and the [place] Society of Enteral and Parenteral Nutrition to [...] compliance w/ MNT Contact the dietitian via [employer] chat 8A-4P Saturday through Saturday or call extension [phone]. For weekends & holidays, the dietitian can be reached via pager [phone] from 9A-3P. Unable to respond to [employer] messages on Saturday & .[facility]06-28-2024 Note Attestation signed by Heidy Dee MD [...] Progress Note - 09/27/2023 10:26 AM; Room: [facility]3184- Admission: 09/26/2023 4:35 PM; Length of stay: 1 days THE HOSPITALIST TEAM PREFERS TO USE [employer] CHAT FOR COMMUNICATION 7AM-7PM. IF I DO NOT RESPOND WITHIN 15 MINUTES, PLEASE PAGE ME/CALL THROUGH THE SURGICAL ATTENDANT. FROM 7PM-7AM, PLEASE PAGE [phone](COVR) Code Status: Full Code Barriers to Discharge: [...] disease, 3rd degree heart block (s/p BiV PUBLIC RELATIONS STUDIES DIRECTOR-D) that presented to OSH w/ c/o chest pain that radiated to left arm and jaw. Pain was described as centrally-located and pressure-like, and unrelieved by Nitroglycerin x3. Patient started on nitroglycerin drip which provided relief. Initial tropin was unremarkable, but repeat was elevated (2962). He was started on heparin and transferred to [facility]. Today, patient is examined at bedside, [...] NSTEMI (non-ST elevated myocardial infarction) ([facility]) Assessment and Plan #NSTEMI - Supplemental oxygen NC - DAPT (aspirin 81 mg, daily; and Plavix 75 mg, daily) - Metoprolol Succinate XL (150 mg, daily) - Rosuvastatin (40 mg, nightly) #HFrEF - Echo pending #CAD - Angiogram planned today #HTN #Diabetes - Insulin sliding scale - Goal blood sugar 140-180 #Hx bradycardia - s/p PUBLIC RELATIONS STUDIES DIRECTOR-D Wounds: Wound 09/26/23 Other (comment) Toe (Comment which one) Left;Distal (Active) Date First Assessed/Time First Assessed: 09/26/23 1501 Present on Original Admission: Yes Primary Wound Type: (c) Other (comment) Location: (c) Toe (Comment which one) Wound Location Orientation: Left;Distal Wound Description (Comments): small ... Assessments 09/26/2023 7:37 PM Site Assessment Jeff;Other (Comment) (scabbed over) Wound 09/26/23 Other (comment) [...] oral, Daily (more content not included)...[facility]06-10-2024 [facility] Note Chief Complaint: [...] Coronary artery disease, Diabetes mellitus ([facility]), Hyperlipidemia, Hypertension, PVD (peripheral vascular disease) ([facility]), and Third degree heart block ([facility]). Surgical History He has a past surgical [...] PSYCH: appropriate mood, affect, and judgement. Investigations: Echocardiogram-[facility] Name: LANI LIZAMA Study Date: 01/25/2023 12:56 PM B/P: 138 mmHg/71 mmHg HR: Date of : 1950 Location: [facility] Height: 67 in. Age: 72 year(s) Patient Room : 314 Weight: 171 lb. Gender: Male Patient Status: InPt BSA: 1.89 m2 Indication: Chest Pain Examination: Echocardiogram (Complete), Lumason Contrast Image Quality: Poor Patient Consent: Procedure explained to patient s p @ c 3 Conclusions Left Ventricle: The left ventricle is normal size. Global left connie (more content not included)...[facility]01-30-2024 Evaluation note* Encounter Date Diagnosis Assessment Notes Treatment Notes Treatment Clinical Notes Apr, Chronic HFrEF (heart failure with reduced ejection fraction) (ICD-10 - I50.22) [employer] Other 12-12-2023 Evaluation note* Encounter Date Diagnosis Assessment Notes [...] age/comorbidities 2. Blood glucose levels according to [employer] cgm download 02/27/2023- 023: Average glucose 134. [...] PAP-Jardiance was denied, pt given information on [facility] diabetes discount program instructed to apply order [...] to make it easier material was printed [employer] Other 2023 Evaluation note* Encounter Date Diagnosis Assessment Notes Treatment Notes Treatment Clinical Notes Jan, Chronic HFrEF (heart failure with reduced ejection fraction) (ICD-10 - I50.22) [employer] Other 10-09-2023 Evaluation note* Encounter Date Diagnosis [...] Continue statins. Monitor LFTs and lipid profile. [employer] Other 10-06-2023 Evaluation note* Encounter Date Diagnosis Assessment Notes Treatment Notes Treatment Clinical Notes Dec, Ground glass opacity present on imaging of lung (ICD-10 - R91.8) CT: RUL, RML - 12/2022Dec, Pulmonary nodule (ICD-10 - R91.1) CT: 7mm RML nodule - 12/2022 [employer] Other 10-03-2023 Evaluation note* Encounter Date Diagnosis Assessment Notes Treatment Notes Treatment Clinical Notes Dec, Stage 3b chronic kidney disease (ICD-10 - N18.32) [employer] Other 10-02-2023 Evaluation note* Encounter Date Diagnosis [...] risk for cerebrovascular and cardiovascular disease. Dec, detention current use of insulin (ICD-10 [...] be contributing - must discuss w/ Cardiology [employer] Other 07-03-2023 Evaluation note* Encounter Date Diagnosis Assessment Notes Treatment Notes Treatment Clinical Notes Sep, ASHD (arteriosclerotic heart disease) (ICD-10 - I25.10) [employer] Other 06-21-2023 Evaluation note* Encounter Date Diagnosis Assessment Notes Treatment Notes Treatment Clinical Notes Aug, ASHD (arteriosclerotic heart disease) (ICD-10 - I25.10) [employer] Other 06-02-2023 Evaluation note* Encounter Date Diagnosis [...] inserts to prevent callus formation.Fall precautions. Aug, director long term care (current) use of insulin (ICD-10 - Z79.4) [employer] Other 05-11-2023 Evaluation note* Encounter Date Diagnosis Assessment Notes Treatment Notes Treatment Clinical Notes July, Ground glass opacity present on imaging of lung (ICD-10 - R91.8) CT: RML,RUL infiltrate - 12/2021, CT: RML,RUL improved - 03/2022 CT: RML, RUL, GGO improved - 07/2022 [employer] Other 04-03-2023 Evaluation note* Encounter Date Diagnosis [...] D and PTH. Advised low phosphorus diet. [employer] Other 03-30-2023 Evaluation note* Encounter Date Diagnosis [...] are reviewed at the office visit. May, director long term care (current) use of insulin (ICD-10 - [...] (ICD-10 - Z12.5) Yearly PSA and ABDELRAHMAN [employer] Other 03-28-2023 Evaluation note* Encounter Date Diagnosis [...] 2. Blood glucose levels stable. According to morris cgm download 06/13/2022- 3: Average glucose 190. [...] hypertension material was printed on diony. May, director long term care current use of insulin (ICD-10 - Z79.4) May, Hyperlipidemia (ICD-10 - E78.5) High cholesterol material was printed 05/2022 ldl 69- on statin. May, BMI 27.0-27.9,adult (ICD-10 - Z68.27) Eating healthy: tips to make it easier material was printed [employer] Other 02-25-2023 Evaluation note* Encounter Date Diagnosis Assessment Notes Treatment Notes Treatment Clinical Notes May, Abnormality of lung on CXR (ICD-10 - R91.8) [employer] Other 12-20-2022 Evaluation note* Encounter Date Diagnosis [...] 2. Blood glucose levels stable. According to [employer] cgm download 03/07/2022-03/20/20 22: Average glucose 144. Above 250-0%, >180- 15%, 70-180-85%, <70-0%, <54-0%. CV 24.3%. Reviewed download with pt, no incidence of hypoglcyemia noted. Glucose rise between 12-6pm. D/t current shortage of ozempic, recommend pt reduce dose to 0.5mg once weekly until shipment rec[facility], then increase to 1mg once weekly. Reviewed [...] hypertension material was printed on diony. Mar, director long term care current use of insulin (ICD-10 - Z79.4) Mar, Hyperlipidemia (ICD-10 - E78.5) High cholesterol material was printed 06/2021 ldl 48- on statin. 20 Mar, 2022 BMI 26.0-26.9,adult (ICD-10 - Z68.26) Eating healthy: tips to make it easier material was printed 9 pound weight loss from last visit, continue with weight loss efforts [facility] [employer] Other 11-10-2022 Evaluation note* Encounter Date Diagnosis Assessment Notes Treatment Notes Treatment Clinical Notes Jan, Diabetes mellitus with chronic kidney disease (ICD-10 - E11.22) [facility] [employer] Other 10-19-2022 Discharge summary Author Gagan Shahid [facility] January 17, 2022 3:02pm Note Date/Time January 17, 2022 3 :02pm [facility] [address] [place] [address] Discharge Summary Signed Patient: Lani Lizama MR#: [id number] : 1950 Acct:[id number] Age/Sex: 71 / M Adm Date: 2 Loc: Room: [address] [place] [address]: Gagan Shahid DO Copies to: DO Gagan Hudson, DO~ Providers Date of Discharge: 01/17/22 Discharging [...] thought this to be indigestion/GERD in the anthropology department chair hours howeverthis progressively worsened prompting his presentation [...] consulted for management of non-ST segment elevation [place]. Cardiac catheterization was undergone on 01/16/2022 showing [...] levels as before. DISCHARGE INSTRUCTIONS FOR CARDIAC HEALTH CLUB MANAGER PHONE NUMBER OF YOUR PHYSICIAN: [phone] PROCEDURE: Heart Cath The following instructions have [...] cold, numb, blue or white, call the fingerprint clerk immediately. 4. ACTIVITY: You are advised to [...] bottle, follow the instructions on the bottle. [facility] is not responsible for incorrect prescription [...] <Electronically signed by Gagan Shahid DO> 01/17/22 [address] [facility] Work Phone: 1(381) 176-768010-19-2022 Progress note Author Luis Alfredo Borges [facility] January 17, 2022 11:47am Note Date/Time January 17, 2022 1 1:47am [facility] [address] [place] [address] Cardiology Progress Note Signed Patient: Lani Lizama MR#: [id number] : 1950 Acct:[id number] Age/Sex: 71 / M Adm Date: 2 Loc: Room: [address] [place] [address] Type: ADM IN Attending Dr: Gagan Shahid [...] is also notable worsening of the patient's [place]kiak occlusive coronaryheart disease particularly in the microcirculation [...] daily 3. Patient does have a primary fingerprint clerk near his home in [place]. We willschedule him 1 follow-up visit in [facility] for left wrist check and also for counseling and reinforcement/referral to phase 2 monitored cardiac rehabilitation which the patient desires to perform in [place]. 4. Instructed the patient that he can [...] by Luis Alfredo Borges MD> 01/17/22 [address] [facility] Work Phone: 1(395) 315-153010-18-2022 Progress note Author Gagan Shahid [facility] January 16, 2022 4:09pm Note Date/Time January 16, 2022 4 :09pm [facility] [address] [place] [address] Hospitalist Progress Note Signed Patient: Lani Lizama MR#: [id number] : 1950 Acct:[id number] Age/Sex: 71 / M Adm Date: 2 Loc: Room: [address] [place] [address] Type: ADM IN Attending Dr: Gagan Shahid [...] <Electronically signed by Gagan Shahid DO> 01/16/22 [address] [facility] Work Phone: 1(245) 681-445210-18-2022 [facility] Consult note Author Luis Alfredo Borges [facility] January 16, 2022 10:24am Note Date/Time January 16, 2022 1 0:24am [facility] [address] [place] [address] Cardiology Consult Note Signed Patient: Lani Lizama MR#: [id number] : 1950 Acct:[id number] Age/Sex: 71 / M Adm Date: 2 Loc: Room: [address] [place] [address] Type: ADM IN Attending Dr: Gagan Shahid [...] well as history of PCI done here [facility] per Dr. Saldaña in May 2020 [...] he activated EMS and was taken to [facility] emergency department. There the patient was treated [...] Lymph # (Auto) 1.0 1.6 (1.00-4.8) x10E3/uL Izard # (Auto) 0.4 0.8 (0.0-0.8) x10E3/uL Eos [...] nonspecific abnormality, ST segment, and/or T wave [place], pacemaker, normal Normal tracing: no change compared [...] by Luis Alfredo Borges MD> 01/16/22 [address] [facility] Work Phone: 1(919) 264-400510-17-2022 History and physical note Author Gagan Shahid [facility] January 15, 2022 6:56pm Note Date/Time January 15, 2022 6 :02pm [facility] [address] [place] [address] Hospitalist H&P Signed Patient: Lani Lizama MR#: [id number] : 1950 Acct:[id number] Age/Sex: 71 / M Adm Date: 2 Loc: Room: [address] [place] [address] Type: ADM IN Attending Dr: Gagan Shahid [...] need for cardiovascular evaluation [facility] management and cardiology consultation. [...] % (Auto) 13.8 % (.) 01/15/22 15:00 Izard % (Auto) 6.1 % (.) 01/15/22 15:00 Eos % (Auto) 0.9 % (.) 01/15/22 15:00 Baso % (Auto) 0.5 % (.) 01/15/22 15:00 Neut # (Auto) 5.6 x10E3/uL (1.8-7.7) 01/15/22 15:00 Lymph # (Auto) 1.0 x10E3/uL (1.00-4.8) 01/15/22 15:00 Izard # (Auto) 0.4 x10E3/uL (0.0-0.8) 01/15/22 15:00 [...] <Electronically signed by Gagan Shahid DO> 01/15/22 [address] [facility] Work Phone: 1(719) 520-658509-19-2022 Evaluation note* Encounter Date Diagnosis Assessment Notes [...] Blood glucose levels above improved. According to [employer] cgm download 12/05/2021- 2: Average glucose 119. [...] hypertension material was printed on diony. Nov, director long term care current use of insulin (ICD-10 - Z79.4) Nov, Hyperlipidemia (ICD-10 - E78.5) High cholesterol material was printed 06/2021 ldl 48- on statin. Nov, BMI 27.0-27.9,adult (ICD-10 - Z68.27) Eating healthy: tips to make it easier material was printed 22 pound weight loss from last visit, continue with weight loss efforts [employer] Other 07-22-2022 Miscellaneous Notes* Telephone Encounter - Vee Day - 10/20/2021 9:42 AM EDT New CBC order. Vee Day documented in this encounterCleveland [id number] NoteChief Complaint consultation for cholelithiasis HPI Staff [...] RLQ ASHD (arteriosclerotic heart disease) Atheroscler of [place] artery of both legs with intermit claudication BMI 28.0-28.9,adult BPH associated with nocturia Cholelithiasis Controlled diabetes mellitus with diabetic polyneuropathy, with long-term current use of insulin Diabetic retinopathy Elevated serum immunoglobulin free light chains GERD (gastroesophageal reflux disease) IBS (irritable bowel syndrome) Lumbar spondylosis MGUS (monoclonal gammopathy of unknown significance) Mixed hyperlipidemia Nausea Obesi (more content not included)...[facility] HospitalComment on above: Result Comment: Electronically Signed By: FRANKIE LEMUS, Gagan Bal\Date and Time Signed: 10/17/21 12:19 [id number] Evaluation note* Encounter Date Diagnosis Assessment Notes [...] Blood glucose levels above improved. According to [employer] cgm download 07/04/2021-07/17/2021 : Average glucose 146. [...] hypertension material was printed on diony. Jun, detention current use of insulin (ICD-10 - Z79.4) Jun, BMI 30.0-30.9,adult (ICD-10 - Z68.30) Eating healthy: tips to make it easier material was printed see above Jun, Bradycardia (ICD-10 - R00.1) asymptomatic- f/u with cardiology has upcoming apt. If symptomatic i.e. light headed notify sooner [employer] Other 03-21-2022 Evaluation note* Encounter Date Diagnosis Assessment Notes Treatment Notes Treatment Clinical Notes May, Gastro-esophageal reflux disease with esophagitis, without bleeding (ICD-10 - K21.00) [facility] Other 03-08-2022 Evaluation note* Encounter Date Diagnosis [...] His MBD parameters are within the goal. [employer] Other 02-21-2022 Evaluation note* Encounter Date Diagnosis Assessment Notes Treatment Notes Treatment Clinical Notes May, Diabetes mellitus with chronic kidney disease (ICD-10 - E11.22) [facility] Other 01-10-2022 Evaluation note* Encounter Date Diagnosis Assessment Notes Treatment Notes Treatment Clinical Notes Apr, Type 2 diabetes mellitus with hyperglycemia (ICD-10 - E11.65) [facility] Other 01-10-2022 Evaluation note* Encounter Date Diagnosis [...] Blood glucose levels above improved. According to Apply[employer] cgm download 03/28/2021-04/10/19 22: Average glucose 167. [...] was also given rx assist paperwork for [facility] if he does not qualify for BI/jardiance. Ozempic will increase to 1mg once weekly. Apr, Hyperlipidemia (ICD-10 - E78.5) High cholesterol material was printed 07/2020 ldl 64 trig 207- on statin. Apr, HTN (hypertension) (ICD-10 - I10) About hypertension material was printed on diony. Apr, detention current use of insulin (ICD-10 - Z79.4) Apr, BMI 30.0-30.9,adult (ICD-10 - Z68.30) Eating healthy: tips to make it easier material was printed see above [employer] Other 11-16-2021 Evaluation note* Encounter Date Diagnosis [...] His MBD parameters are within the goal. [facility] Other 10-05-2021 Evaluation note* Encounter Date Diagnosis [...] above target with increased variability. According to Apply[employer] cgm download 12/07/2020-01/03/2021: Average glucose 135. Above [...] Bradycardia (ICD-10 - R00.1) Pt asymptomatic. Notified fingerprint clerk Dr. Velazquez. Pt has apt on Saturday next week. [employer] Other Chief complaint+Reason for visit Narrative* Chief Complaint 4 month follow up Reason for Visit BMI 28.0-28.9,adult Dietary counseling and surveillance HTN (hypertension) Chronic HFrEF (heart failure with reduced ejection fraction) Chronic kidney disease [id number] HTN (hypertension) Hypercholesterolemia Ischemic cardiomyopathy Pulmonary nodule Type 2 diabetes mellitus with hyperglycemia [facility] Work Phone: Evaluation + Plan note No data available for this section General Surgery [place] Evaluation noteNo InformationNortSt. Luke[facility] [employer] Other Evaluoiaap note* Diagnosis Monoclonal gammopathy- Primary Monoclonal paraproteinemia [facility] Diagnosis Onset Date Resolution Status Non-ST elevation myocardial infarction (NSTEMI), initial care episode acute [facility] Work Phone: Evaluation noteNo assessment information available [facility] Work Phone: Evaluation note* Diagnosis Onset Date Resolution Status BMI 26.0-26.9,adult acute Dietary counseling and surveillance acute DM2 (diabetes mellitus, type 2) acute HLD (hyperlipidemia) acute HTN (hypertension) acute [facility] Work Phone: Evaluation note* Diagnosis Onset Date Resolution Status BMI 26.0-26.9,adult acute Dietary counseling and surveillance acute DM2 (diabetes mellitus, type 2) acute HLD (hyperlipidemia) acute HTN (hypertension) acute Chronic HFrEF (heart failure with reduced ejection fraction) acute CKD (chronic kidney disease) stage 3, GFR 30-59 ml/min acute HLD (hyperlipidemia) acute [id number] acute Secondary hyperparathyroidism acute Type 2 diabetes 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 acute [facility] Work Phone: Evaluation note* Diagnosis Onset Date Resolution Status Dietary counseling and surveillance acute HTN (hypertension) acute Chronic HFrEF (heart failure with reduced ejection fraction) acute CKD (chronic kidney disease) stage 3, GFR 30-59 ml/min acute [id number] acute Secondary hyperparathyroidism acute Type 2 diabetes 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 acute Chronic HFrEF (heart failure with reduced ejection fraction) acute Chronic kidney disease acute HTN (hypertension) acute Hypercholesterolemia acute Ischemic cardiomyopathy acut e Pulmonary nodule acute Type 2 diabetes mellitus with hyperglycemia acute Medicare annual wellness visit, subsequent noneactive Screening PSA (prostate specific antigen) noneactive [facility] Work Phone: Evaluation note* Diagnosis Onset [...] counseling and surveillance acute HTN (hypertension) acute [facility] Work Phone: Evaluation note* Diagnosis Onset Date Resolution Status BMI 28.0-28.9,adult acute Dietary counseling and surveillance acute HTN (hypertension) acute Chronic HFrEF (heart failure with reduced ejection fraction) acute Chronic kidney disease acute [id number] acute HTN (hypertension) acute Hypercholesterolemia acute Ischemic cardiomyopathy acut e Pulmonary nodule acute Type 2 diabetes mellitus with hyperglycemia acute [facility] Work Phone: Evaluation note* Diagnosis Onset [...] disease) stage 3, GFR 30-59 ml/min acute [id number] acute Secondary hyperparathyroidism acute Type 2 diabetes 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 acute [facility] Work Phone: Evaluation note* Diagnosis Onset Date Resolution Status Chronic HFrEF (heart failure with reduced ejection fraction) acute Chronic kidney disease acute HTN (hypertension) acute Hypercholesterolemia acute Ischemic cardiomyopathy acut e Pulmonary nodule acute Type 2 diabetes mellitus with hyperglycemia acute Chronic HFrEF (heart failure with reduced ejection fraction) acute CKD (chronic kidney disease) stage 3, GFR 30-59 ml/min acute [id number] acute Secondary hyperparathyroidism acute Type 2 diabetes 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 acute BMI 27.0-27.9,adult acute Dietary counseling and surveillance acute HTN (hypertension) acute [facility] Work Phone: Evaluation note* Diagnosis Xerosis cutis- Primary Other specified disease of sebaceous glands Diabetes 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, without long-term current use of insulin (CMS/HCC) Pain due to onychomycosis of toenails of both feet documented in this encounter [facility] HealthcareEvaluation note* Diagnosis Diabetes 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, without long-term current use of insulin (CMS/HCC)- Primary Pain due to onychomycosis of toenails of both feet documented in this encounter [facility] HealthcareHistory general Narrative - Reported* [...] 11-25-16 Hospitalization History HEART STENT PLACED 03-20 [employer] Other [employer] general Narrative - ReportedNort [employer] Other [employer] general Narrative - Reported* Type Description Date [...] 11-25-16 Hospitalization History HEART STENT PLACED 03-20 [facility] Other Hisxrg[employer] general Narrative - Reported* Type Description Date [...] 11-25-16 Hospitalization History HEART STENT PLACED 03-20 [facility] Other History general Narrative - Reported* Type [...] 11-25-16 Hospitalization History HEART STENT PLACED 03-20 [employer] Other Hiswgcq general Narrative - Reported* Type Description Date [...] STENT PLACED 03-20 Hospitalization History SEE ABOVE [employer] Other [employer] general Narrative - ReportedNortSimplificare Other History general Narrative - Reported* Type [...] STENT PLACED 03-20 Hospitalization History SEE ABOVE [employer] Other [employer] general Narrative - Reported* Type Description Date [...] PLACED 03-20 18 Hospitalization History SEE ABOVE [facility] Other Hispdfr general Narrative - Reported* Type Description Date [...] PLACED 03-20 18 Hospitalization History SEE ABOVE [facility] Other History general Narrative - Reported* Type [...] History GGO and Pulmonary nodules Medical History [place] 01/21 Medical History Defibrilator 02/21 Surgical History [...] 03-20 Hospitalization History SEE ABOVE Hospitalization History [place] 01/21 [facility] Other Hospital Discharge instructions No data available for this section [facility] Discharge instructions Additional Instructions Monitor glucose levels as before. DISCHARGE INSTRUCTIONS FOR CARDIAC HEALTH CLUB MANAGER PHONE NUMBER OF YOUR PHYSICIAN: [phone] PROCEDURE: Heart Cath The following instructions have [...] cold, numb, blue or white, call the fingerprint clerk immediately. 4. ACTIVITY: You are advised to [...] bottle, follow the instructions on the bottle. [facility] is not responsible for incorrect prescription information provided by the patient during their visit. Do not stop your medications without consulting your health care provider. Please take the list with you to your next doctor's appointment. [facility] Work Phone: Hospital Discharge instructionsAmbulatory Orders* Referral to Podiatry Location: None Selected [facility] Work Phone: Progress note No data available for this section General Surgery [place] Summary Purpose Family History No Family History [...] mother Diabetes mellitus Unknown Unknown Advance Directives No [...] stage 3, GFR 30-59 ml/min HLD (hyperlipidemia) [id number] Secondary hyperparathyroidism Type 2 diabetes mellitus with diabetic chronic kidney disease 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 6 month follow up MEDICARE WELLNESS Reason for Visit Dietary counseling a nd surveillance HTN (hypertension) Chronic HFrEF (heart failure with reduced ejection fraction) CKD (chronic kidney disease) stage 3, GFR 30-59 ml/min [id number] Secondary hyperparathyroidism Type 2 diabetes mellitus with [...] kidney disease) stage 3, GFR 30-59 ml/min [id number] Secondary hyperparathyroidism Type 2 diabetes mellitus with [...] kidney disease) stage 3, GFR 30-59 ml/min [id number] Secondary hyperparathyroidism Type 2 diabetes mellitus with diabetic chronic kidney disease BMI 27.0-27.9,adult Dietary counseling and surveillance HTN (hypertension) Chief Complaint Admit Date Amb Documentation February 18, 2024 9:11am CC Adult Risk Stratification February 172023 10:26am IP f/u [facility] chest pain-HIGH RISK Nov 2023 9:29am 4 month f/u-HIGH RISK April 16, [...] 2024 9:29am Controlled type 2 diabetes m ellitus with diabetic peripheral angiopathy wit February 24, [...] 9 :21am Dietary counseling and surveillance Desean lee ann 2024 9:21am HTN (hypertension) April 30, 2024 9 :21am DM2 (diabetes mellitus, type 2) April 30, 2024 9:21am HLD (hyperlipidemia) April 30, 2024 9:21am Chief Complaint Admit Date 4 month f/u-HIGH RISK April 16, 2024 8:19am 3 month April 30, 2024 9 :21am Cataract May 28, 2024 11:06am Reason for Visit Admit Date Chronic HFrEF (heart failure with reduced ejection fraction) April 16, 2024 8:19am Chronic kidney disease April 16 8:19am HTN (hypertension) April 16, 2024 8 :19am Hypercholesterolemia April 16, 2024 8:19am Ischemic cardiomyopathy April 16 8:19am Pulmonary nodule April 16, 2024 8 :19am Type 2 diabetes mellitus with hyperglyce dimple April 16, 2024 8:19am BMI 28.0-28.9,adult April 30, 2024 9 :21am Dietary counseling [...] section and content) DATE CREATED AUTHOR 11/29/2018 [facility] DATE CREATED AUTHOR AUTHOR'S ORGANIZ ATION 10/20/2021 [facility] DATE CREATED AUTHOR AUTHOR'S ORGANIZ ATION 10/25/2021 [facility] DATE CREATED AUTHOR AUTHOR'S ORGANIZ ATION 08/13/2022 [facility] DATE CREATED AUTHOR AUTHOR'S ORGANIZ ATION 04/09/2024 [facility] EPIC DATE CREATED AUTHOR AUTHOR'S ORGANIZ ATION 05/28/2024 [facility] DATE CREATED AUTHOR AUTHOR'S ORGANIZ ATION 06/09/2024 [facility] REASON FOR VISIT (unrecogniz ed section and [...] Care Provide r, Attending Provider Active Start: May 05, 2024 Team Status: Inactive Member Role Status Dates Harley Crespo DO Primary Care Provider Active Start: May 28, 2024 End: May 28, 2024 Tamara Amaro MD Attending Provider Active Start: May 28, 2024 End: May 28, 2024 Team Status: Active Member Role Status Dates Harley Crespo DO Primary Care Provider Active Start: February 12, 2024 Ronnell Lagos DO Attending Provider Active S tart: February [...] July 02, 2023 End: July 02, 2023 Poultry Cleaner Relationship Specialty Start Date End Date Harley Crespo DO [address] [place] [address] PCP - General Internal Medicine 07/18/18 Team Status: Inactive Member Role Status Dates Harley Crespo DO Primary Care Provider Active Gagan Shahid DO Admit Provider, Attending Provider Active Team Status: Active Member Role Status Dates Harley Crespo DO Primary Care Provider Active Ryan Garrett APRN NP-Aidee Active Valerie Gallegos PA-C Active Arlen Kwong APRN Attending Provider Active Team Status: Inactive Member Role Status Dates Arlen Kwong APRN Attending Provider Active Start: March 12, 2023 End: March 12, 2023 Team Status: Inactive Member Role Status Dates Harley Crespo DO Primary Care Provider Active Start: March 12, 2023 End: March 12, 2023 Ryan Garrett APRN BRIM RAISER-C Active Sta rt: March 12, 2023 End: [...] January 23, 2024 End: January 23, 2024 Poultry Cleaner Relationship Specialty Start Date End Date Harley Crespo MD [address] [place] [address] PCP - General Internal Medicine 11/07/23 Poultry Cleaner Relationship Specialty Start Date End Date Harley Crespo MD [address] [place] [address] PCP - General Internal Medicine 11/07/23 Poultry Cleaner Relationship Specialty Start Date End Date Harley Crespo MD [address] [place] [address] PCP - General Internal Medicine 11/07/23 Source Comments (unrecognize d section and content) In the event this informatio n is protected by the Federal Confidentiality of Alcohol and Drug Abuse Patient Records regulations: The Federal rules restrict any use of the information to criminally investigate or prosecute any alcohol or drug abuse patient.[facility] Goals (unrecognized section and content) Goals [...] BE BASED ON THE PRIMARY CLINICAL RECORDS. [facility]. provides no warranty or guarantee of the accuracy or completeness of information in this document.
--- NOTE | 2024-06-10 10:37 | ED_ITS ---
HPI HPI - General Adult General Chief complaint: Upper Respiratory Infection Stated complaint: SINUS COUGH CHILLS Time Seen by Provider: 06/10/24 09:10 Mode of arrival: walk-in History of Present Illness HPI narrative: Patient presents to ED complaining of not feeling well. He said he feels like he got hit by a semi-. Patient states he started feeling bad yesterday morning and throughout the day. He is having some sweats and chills also a little cough and some vague abdominal pain. No vomiting. No fever here. He said throughout the night he started to feel worse. He is supposed to have an eye surgery tomorrow so he came into the ED for evaluation. He denies chest pain or shortness of breath. His biggest complaint is overall fatigue and weakness. No fall no syncope. Answering questions appropriate and no other complaints at this time. Related Data Home Medications ?Medication ?Instructions ?Recorded ?Confirmed alprazolam 0.5 mg tablet (Xanax) 0.5 mg PO BID 01/24/23 09/26/23 aspirin 81 mg tablet,delayed 81 mg PO DAILY 01/24/23 09/26/23 release (Adult Aspirin Regimen) bumetanide 0.5 mg tablet 0.5 mg PO .MORNING 01/24/23 09/26/23 carvedilol 25 mg tablet 12.5 mg PO Q12H 01/24/23 09/26/23 cetirizine 10 mg capsule (All Day 10 mg PO DAILY 01/24/23 09/26/23 Allergy (cetirizine)) cholecalciferol (vitamin D3) 25 25 mcg PO DAILY 01/24/23 09/26/23 mcg (1,000 unit) tablet (Vitamin D3) clopidogrel 75 mg tablet 75 mg PO .HS 01/24/23 09/26/23 docusate sodium 100 mg capsule 100 mg PO DAILY 01/24/23 09/26/23 (Colace) empagliflozin 10 mg tablet 10 mg PO QAM 01/24/23 09/26/23 (Jardiance) insulin aspart U-100 100 unit/mL 1 sliding scale dose subcut 01/24/23 09/26/23 (3 mL) subcutaneous pen (Novolog USEASDIRECTD FlexPen U-100 Insulin aspart) insulin detemir U-100 100 unit/mL 1 unit subcut DAILY 01/24/23 09/26/23 (3 mL) subcutaneous pen (Levemir FlexPen) isosorbide mononitrate 60 mg 60 mg PO BID 01/24/23 09/26/23 tablet,extended release 24 hr lisinopril 2.5 mg tablet 2.5 mg PO DAILY 01/24/23 09/26/23 lovastatin 40 mg tablet 40 mg PO .PM 01/24/23 09/26/23 multivitamin with iron-mineral 1 tab PO DAILY 01/24/23 09/26/23 nitroglycerin 0.4 mg sublingual 0.4 mg sublingual Q5M PRN chest 01/24/23 09/26/23 tablet pain pantoprazole 40 mg tablet,delayed 40 mg PO DAILY 01/24/23 01/24/23 release potassium chloride 10 mEq 10 meq PO DAILY 01/24/23 09/26/23 tablet,extended release semaglutide 1 mg/dose (2 mg/1.5 1 mg subcut QWEEK 01/24/23 09/26/23 mL) subcutaneous pen injector (Ozempic) Allergies Allergy/AdvReac Type Severity Reaction Status Date / Time No Known Drug Allergies Allergy Verified 02/12/24 20:36 Opioid HPI Opioid Management Most Recent Opioid Data: Last Pain Scale 4 02/12/24 21:00 02/12/24 Review of Systems ROS Status of ROS 10 or more systems reviewed and unremark able except as noted in history and below [facility] Medical History (Updated 06/10/24 @ 09:[address] DO) AMI (acute myocardial infarction) ?I21.9 - Acute myocardial infarction, unspecified (ICD-10) Pacemaker ?Z95.0 - Presence of cardiac pacemaker (ICD-10) Anxiety ?F41.9 - Anxiety disorder, unspecified (ICD-10) GERD (gastroesophageal reflux disease) ?K21.9 - Gastro-esophageal reflux disease without esophagitis (ICD-10) Hypertension ?I10 - Essential (primary) hypertension (ICD-10) Diabetes ?E11.9 - Type 2 diabetes mellitus without complications (ICD-10) Surgical History (Updated 01/24/23 @ 19:49 by Cammy Adler) History of heart artery stent ?Z95.5 - Presence of coronary angioplasty implant and graft (ICD-10) Social History (Updated 10/26/23 @ 20:00 by Cammy Adler) Within the past year, how often did you have a drink containing alcohol: never Within the past year, how often did you have six or more drinks on one occasion: never Score interpretation: A score less than 4 is consistent with normal alcohol consumption. Smoking status: Former smoker Non-prescribed substance use: denies use Previous occupational history: works 1 day a week Highest level of school completed/degree received: high school graduate Are you now , , , , never or living with a partner: In a typical week, how many times do you talk on the telephone with family, friends, or neighbors: 3 or more times per week How often do you get together with friends or relatives: once per week How often do you attend anabaptist or sabianism services: 1-3 times per year Little interest or pleasure in doing things: not at all Feeling down, depressed, or hopeless: not at all Feel stressed/tense/nervous/anxious/difficulty sleeping: to some extent Life stressors: other Life stressor details: getting older Exam Narrative Exam Narrative: General: alert, no acute distress Cardiovascular: regular rate and rhythm, normal peripheral perfusion. Respiratory: Lungs CTA, respirations non labored. Extremities: no deformity, no trauma. Neurological: oriented x 4, LOC appropriate for age. Abdomen soft nontender nondistended Constitutional Vital Signs, click to edit/add: Last Vital Signs Temp 98.2 F 06/10/24 09:13 Pulse 100 H 06/10/24 09:13 Resp 18 06/10/24 09:13 BP 132/80 06/10/24 09:13 Pulse Ox 97 06/10/24 09:13 Course Vital Signs Vital signs: Vital Signs Temperature 98.2 F 06/10/24 09:13 Pulse Rate 100 H 06/10/24 09:13 Respiratory Rate 18 06/10/24 09:13 Blood Pressure 132/80 06/10/24 09:13 Pulse Oximetry 97 06/10/24 09:13 Temperature 98.2 F 06/10/24 09:13 Pulse Rate 100 H 06/10/24 09:13 Respiratory Rate 18 06/10/24 09:13 Blood Pressure 132/80 06/10/24 09:13 Pulse Oximetry 97 06/10/24 09:13 Medical Decision Making MDM Narrative Medical decision making narrative: Patient is COVID-positive. He should technically quarantine for full 5 days and therefore cancel his surgery tomorrow. Patient states he will call their office and let them know that he is COVID-positive. Return to ED if worsening symptoms. Continue Tylenol Motrin at home for pain. Rest and hydrate well at home. Patient comfortable care plan for home. Differential Diagnosis Differential Diagnosis: Flu COVID viral syndrome Lab Data Lab results reviewed: Yes I reviewed the patient's lab results Labs: Lab Results 06/10/24 Range/Units 09:19 Influenza Type A Ag Negative Influenza Type B Ag Negative SARS-CoV-2 Ag (CV2AG) Positive A (NEGATIVE) Discharge Plan Discharge Chief Complaint: Upper Respiratory Infection Clinical Impression: COVID Patient Disposition: Home, Self-Care Time of Disposition Decision: 09:46 Condition: Good Mode of Transportation: Private Vehicle Prescriptions / Home Meds: No Action potassium chloride 10 mEq tablet extended release 10 meq PO DAILY bumetanide 0.5 mg tablet 0.5 mg PO .MORNING docusate sodium [Colace] 100 mg capsule 100 mg PO DAILY pantoprazole 40 mg tablet,delayed release (DR/EC) 40 mg PO DAILY isosorbide mononitrate 60 mg tablet extended release 24 hr 60 mg PO BID All Day Allergy (cetirizine) 10 mg capsule 10 mg PO DAILY Jardiance 10 mg tablet 10 mg PO QAM alprazolam [Xanax] 0.5 mg tablet 0.5 mg PO BID clopidogrel 75 mg tablet 75 mg PO .HS lisinopril 2.5 mg tablet 2.5 mg PO DAILY lovastatin 40 mg tablet 40 mg PO .PM aspirin [Adult Aspirin Regimen] 81 mg tablet,delayed release (DR/EC) 81 mg PO DAILY multivitamin with iron-mineral Tablet 1 tab PO DAILY cholecalciferol (vitamin D3) [Vitamin D3] 25 mcg (1,000 unit) tablet 25 mcg PO DAILY insulin aspart U-100 [Novolog FlexPen U-100 Insulin] 100 unit/mL (3 mL) insulin pen 1 sliding scale dose subcut USEASDIRECTD Levemir FlexPen 100 unit/mL (3 mL) insulin pen 1 unit subcut DAILY Ozempic 1 mg/dose (2 mg/1.5 mL) pen injector 1 mg subcut QWEEK nitroglycerin 0.4 mg tablet, sublingual 0.4 mg sublingual Q5M PRN (Reason: chest pain) carvedilol 25 mg tablet 12.5 mg PO Q12H Patient Comments: Patient takes 12.5mg twice a day Print Language: Czech Instructions: COVID-19 (Coronavirus Disease 2019) (ED) Referrals: Harley Goodman DO [Primary Care Provider] - 1 week Discharge Date/Time: 06/10/24 09:57
== END 2024-06-10 09:57 | disposition home or self-care (01) ==
PROVIDERS: Emergency Provider Emergency Medicine; PCP Internal Medicine
DX: U07.1 COVID-19 (principal); Z95.5 Presence of coronary angioplasty implant and graft; Z87.891 Personal history of nicotine dependence
CPT/HCPCS: 87804; 87811; 99283

== ENCOUNTER 2024-07-07 08:12 | Outpatient (OUT) | payer MEDICARE, OTHER, SELFPAY ==
--- OUTSIDE RECORDS SUMMARY | 2024-07-07 08:36 | XMS_ITS | CCD ---
Author Organization [facility] CliniSyma Care Team Providers Care Volunteer Specialist Name Role Phone VIJAY EHAB A Admitting Unavailable ELCANDIDO, EHAB A Attending Unavailable HARLEY CRESPO Referring Unavailable HARLEY CRESPO Primary Care Unavailable ELTAHAWJo, PINKY A Surgeon Unavailable [place] Procedure Practitioner Unavailab le ELTAHAWJo, PINKY A Admitting Unavailable VIJAY, PINKY Mota Attending Unavailable HARLEY CRESPO Referring Unavailable HARLEY CRESPO Primary Care Unavailable Arlen Kwong Unavailable Kingsley Good Unavailable Shannon Escobar Unavailable HARLEY CRESPO Primary Care Physician [phone] Harley Crespo DO Primary Care Provider DO Harley Crespo Primary Care Provider [phone] JULY Kwong Attending Provider DO Gagan Shahid Admit Provider [phone] DO Gagan Shahid Attending Provider [phone] PINKY BISHOP Consulting [...] Care Unavailable CHERIE, DR CARVALHO Consulting Unavailable BANEBFLAVIO, DR HIGINIO Sanchez Consulting Unavailable MASHA, DR HIGINIO Sanchez Consulting Unavailable CHERIE, DR CARVALHO Primary Care Unavailable KEVIN ARTEAGA Attending Unavailable JENNI, KEVIN Admitting Unavailable JENNI, [...] BALL, DR CARVALHO Attending Unavailable BALL, DR CARAVLHO Admitting Unavailable ZIEBER, DR HIGINIO Sanchez Consulting [...] Unavailable MAPUS, TON Admitting Unavailable WEST, DR SAHNNON Hernandez Consulting Unavailable BALL, DR CARVALHO Primary [...] Unavailable DO Harley Crespo Primary Care Provider [phone] [employer] HARDWARE INSTALLATION COORDINATORMandie Monique Attending Provider [phone] Harley Crespo MD Primary Care Provider Harley Crespo DO Primary Care Provider [phone] Lani LEMUS, Tamara Álvarez Attending Provider Tamara Amaro Attending Unavail able Lani, Tamara Álvarez Admitting Unavail able Harley Crespo [facility] Unavailable KENNETH TAVERA Attending Unavailable LIANG, KENNETH Mota Attending Unavailable LIANG, KENNETH Mota Attending Unavailable LIANG, KENNETH Mota Attending Unavailable JENNIKEVIN Molina Referring Unavailable KATKO, HEMALATHA Referring Unavailable HORANI, [...] EMEKA Referring Unavailable JENNI, KEVIN Referring Unavailable ELTAHAWY, EH Attending Unavailable ELTAHAWY, EHAB Attending Unavailable JENNI, KEVIN Attending Unavailable JENNI, KEVIN Referring Unavailable JENNI, KEVIN Referring Unavailable YOST, YFN Referring Unavailable HORANI, DEJUAN Referring Unavailable HORANI, DEJUAN Referring Unavailable JENNI, KEVIN Referring Unavailable JENNI, KEVIN Referring Unavailable JENNI, KEVIN Referring Unavailable JENNI, KEVIN Referring Unavailable CRISTOPHER, EMEKA Referring Unavailable JENNI, KEVIN Referring Unavailable CRISTOPHER, EMEKA Referring Unavailable CRITSOPHER, EMEKA Referring Unavailable CRISTOPHER, EMEKA Referring Unavailable AMERICO, BONAVENTURE Referring Unavailable AMERICO, BONAVENTURE Referring Unavailable JENNI, KEVIN Referring Unavailable CRISTOPHER, EMEKA Referring Unavailable Allergies Allergy Classification Reported Allergen(s) Allergy Type Date of Onset Reaction(s) Facility (1 source) 61911,00; Translations: [Unknown] Propensity to adverse reactions (disorder) 02-10-20 [facility] Repository (2 sources) semaglutide; Translations: [semaglutide] Allergy to substance 05-28-19 Gastrointestinal Upset [facility] Comment on above: constipation Medications Current Medications [...] six hours as needed for pain HYDROcodone-acetaminophen (Hyndman) 5-325 MG tablet TAKE 1 TABLET BY [...] 18, 2023 12:00am October 17, 2023 10:10am 68-10-12 units according to meal size; 4 units [...] PO Twice daily June 23, 2020 11:00pm Tamia 12th, 2021 4:52pm bumetanide 0.5 mg oral tablet (20 [...] with meals 60 January 16, 2022 11:00pm June 18, 2023 [...] 12, 2023 7:42am take 1 capsule by [facility] every twenty-four hours Colace 100 MG [...] 6:52pm Start: 09-07-2021 take 1 tablet by [facility] twice daily famotidine 20 mg Tab 20 [...] 11:00pm July 10, 2021 8:59am triamcinolone acetonide 0.01835 mg/mg topical ointment (1 source) Corticosteroid triamcinolone [...] artery disease; Translations: [Atherosclerotic heart disease of [place] coronary artery without angina pectoris] Onset: 3 [...] sources) Long-term current use of insulin; Translations: [intermediate manager (current) use of insulin] Episodic Other aftercare (11 sources) intermediate manager (current) use of insulin; Translations: [jail current [...] Mass Index 28.0-28.9, adult] 10-17-2023 Episodic Other skin disorders (2 sources) Asteatosis [...] Onset: 09-29-2021 Episodic Other aftercare (1 source) intermediate manager (current) use of aspirin; Translations: [ELECTRONICS COMMODITY MANAGER CURRENT USE OF ASPIRIN] Onset: 04-03-2022 Episodic Other aftercare (1 source) Other nursing home (current) drug therapy; Translations: [OTH ELECTRONICS COMMODITY MANAGER CURRENT DRUG THERAPY] Onset: 04-03-2022 Episodic Other eye disorders (6 sources) Dry eyes; Translations: [Dry eye syndrome of bilateral lacrimal glands] Onset: 10-12-2022 10-12-2022 Episodic Other lower respiratory disease (1 source) Shortness of breath; Translations: [SHORTNESS OF BREATH] Onset: 01-17-2022 Episodic Other screening for suspected conditions (not mental disorders or infectious disease) (20 sources) Increased immunoglobulin; Translations: [Patient encounter status] Onset: 02-13-2024 09-07-2021 Episodic Other upper respiratory infections (1 source) [...] [Mass/volume] in Serum or Plasma by calculation [facility] Comment on above: <100 mg/dl [id number] 0-129 mg/dl NEAR OR ABOVE [id number] mg/dl BORDERLINE [id number] mg/dl HIGH>190 mg/dl VERY HIGH Cholesterol in VLDL Calc [Ma ss/Vol]on 05-05-2024 Cholesterol in VLDL [Mass/Vol] Cholesterol in VLDL [Mass/volume] in Serum or Plasma by calculation [facility] Estimated glomerular filtrat ion rate (GFR) non- Americanon 05-05-2024 GFR/1.73 sq M.predicted among non-blacks MDRD (S/P/Bld) [Vol rate/Area] Estimated glomerular filtration rate (GFR) non- Low >=60 mL/min/1.7 3m 2 [facility] Globulin Calc (S) [Mass/Vol] on 05-05-2024 Globulin (S) [Mass/Vol] Serum globulin measurement by calculation (mass/volume) [facility] Laboratory - Chemistry and C hemistry - challengeon 05-05-2024 Albumin [Mass/Vol] 3.7 g/dL 3.4-5.0 [facility] ALP [Catalytic activity/Vol] 162 U/L High 46-116 [facility] ALT [Catalytic activity/Vol] 17 U/L 16-63 [facility] AST [Catalytic activity/Vol] 20 U/L 15-37 [facility] Bilirubin [Mass/Vol] 0.5 mg/dL 0.2-1.0 [facility] Calcium [Mass/Vol] 9.2 mg/dL 8.5-10.1 [facility] Chloride [Moles/Vol] 104 mmol/L 98-107 [facility] Cholesterol [Mass/Vol] 117 mg/dL <=200 [facility] Cholesterol in HDL [Mass/Vol] 39 mg/dL Low 40-60 [facility] Comment on above: > or =60 mg/dl - LOW CARDIOVASCULAR RISK<40 mg/dl - HIGH CARDIOVASCULAR RISK CO2 [Moles/Vol] 28.5 mmol/L 21.0-32.0 [facility] Creatinine [Mass/Vol] 2.15 mg/dL High 0.70-1.30 [facility] GFR/1.73 sq M.predicted MDRD (S/P/Bld) [Vol rate/Area] 37 mL/min/{1.73_m2} Low >=60 mL/min/1.7 3m 2 [facility] Glucose [Mass/Vol] 220 mg/dL High 74-106 [facility] Potassium [Moles/Vol] 4.6 mmol/L 3.5-5.1 [facility] Protein [Mass/Vol] 8.0 g/dL 6.4-8.2 [facility] Sodium [Moles/Vol] 141 mmol/L 136-145 [facility] Triglyceride [Mass/Vol] 171 mg/dL High <=150 [facility] Urea nitrogen [Mass/Vol] 27.0 mg/dL High 7.0-18.0 [facility] Urea nitrogen/Creatinine [Mass ratio] 12.6 mg/mg [facility] Microalbumin [Mass/volume] i n Urineon 05-05-2024 Albumin DL <= 20 mg/L (U) [Mass/Vol] Microalbumin [Mass/volume] in Urine <=30.0 [facility] No Panel Informationon 05-05 Urine Random Creatinine 61.15 mg/dL 20.00-300. 00 [facility] Serum or plasma albumin/glob ulin mass ratioon 05-05-2024 Albumin/Globulin [Mass ratio] Serum or plasma albumin/globulin mass ratio [facility] Serum or plasma anion gap de terminationon 05-05-2024 Anion gap [Moles/Vol] Serum or plasma an ion gap determination [facility] Serum or plasma total choles terol/high density lipoprotein (HDL) cholesterol mass yulia 05-05-2024 Cholesterol.total/Cho lesterol in HDL [Mass ratio] Serum or plasma total cholesterol/high density lipoprotein (HDL) cholesterol mass rat [facility] Comment on above: 3.3 - 4.4 LOW RISK4. 4 - 7.1 AVERAGE RISK7.1 - 11.0 MODERATE RISK>11.0 HIGH RISK Urine microalbumin/creatinin e mass ratioon 05-05-2024 Albumin/Creatinine DL <= 20 mg/L (U) [Mass ratio] Urine microalbumin/creatinine mass ratio High 0.0-29.9 [facility] Comment on above: NO MICROALBUMINURIA 0-29 MG/GCLINICAL MICROALBUMINURIA 30-300 MG/GMACROALBUMINURIA >300 MG/G HbA1c HPLC (Bld) [Mass fract ion]on 04-30-2024 HbA1c (Bld) [Mass fraction] Hemoglobin A1c/Hemoglobin.total in Blood by HPLC [facility] No Panel Informationon 04-30 Bedside Glucose 158 [facility] Office Visiton 03-10-2024 Follow-up visit [id number] Lani Lizama 1950 M Date Provider Department Center 03/10/2024 Belle-KEVIN ARTEAGA Family History Problem Relation Age of Onset Heart attack Mother Other Father Other Brother Heart attack Maternal Grandmother Heart attack Maternal Grandfather Family Status - Relation Status Age at Mother Father Brother Maternal Grandmother Maternal Grandfather Level of Service:62764 [place] OFFICE/OUTPATIENT NEW LOW MDM 30 MINUTES Normal [facility] 30on 02-14-2024 30 The patient is Moder ately Stable - Low risk of patient condition declining or worsening The patient's goals for the shift include get better The clinical goals for the shift include VSS Normal [facility] 30 The patient is Moder [...] and behaviors that affect risk of falls Bellamy fall precautions as indicated by assessment Educate [...] and prevent overall improvement and discharge Normal [facility] BASIC METABOLIC PANELon 11-1 Anion gap [Moles/Vol] 9 mmol/L Normal 7-20 [facility] Comment on above: Performed By: #### L [id number] #### [facility] ([facility]AKER) [address] [place] [address] Calcium [Mass/Vol] 8.4 mg/dL Low 8.6-10.3 [facility] Comment on above: Performed By: #### L [id number] #### [facility] ([facility] [address] [place] [address] Chloride [Moles/Vol] 109 mmol/L High 98-107 [facility] Comment on above: Performed By: #### L [id number] #### [facility] ([facility]) [address] [place] [address] CO2 [Moles/Vol] 25 mmol/L Normal 21-31 [facility] Comment on above: Performed By: #### L [id number] #### [facility] ([facility]) [address] [place] [address] Creatinine [Mass/Vol] 1.65 mg/dL High 0.70-1.30 [facility] Comment on above: Performed By: #### L [id number] #### [facility] ([facility] [address] [place] [address] GLOMERULAR FILTRATION RATE ML/MIN/1.73 SQ M.PREDICTED 43.8 mL/min/1.73m*2 Low >60.0 [facility] Comment on above: Result Comment: [facility]???s estimated glomerular filtration rate (eGFR) [...] individuals. Performed By: #### L [id number] #### [facility] ([facility]) [address] [place] [address] Glucose [Mass/Vol] 118 mg/dL High 70-100 [facility] Comment on above: Performed By: #### L [id number] #### [facility] ([facility]) [address] [place] [address] Potassium [Moles/Vol] 4.3 mmol/L Normal 3.5-5.1 [facility] Comment on above: Performed By: #### L [id number] #### [facility] ([facility]) [address] [place] [address] Sodium [Moles/Vol] 139 mmol/L Normal 136-145 [facility] Comment on above: Performed By: #### L [id number] #### [facility] ([facility]) [address] [place] [address] Urea nitrogen [Mass/Vol] 19 mg/dL Normal 7-25 [facility] Comment on above: Performed By: #### L [id number] #### [facility] ([facility]) [address] [place] [address] UREA NITROGEN/CREATININE (MASS RATIO) IN SER/PLAS 11.5 Normal [facility] Comment on above: Performed By: #### L [id number] #### [facility] ([facility]) [address] [place] [address] CBCon 02-14-2024 Erythrocyte distribution width (RBC) [Ratio] 13.8 % Normal 11.5-15.0 [facility] Comment on above: Performed By: #### L [id number] #### [facility] ([facility]) [address] [place] [address] ERYTHROCYTE MEAN CORPUSCULAR HEMOGLOBIN CONCENTRATION (G/DL) BY AUTOMATED 32.9 g/dL Normal 32.0-35.0 [facility] Comment on above: Performed By: #### L [id number] #### [facility] ([facility]) [address] [place] [address] Hematocrit (Bld) [Volume fraction] 38.0 % Low 39.0-55.0 [facility] Comment on above: Performed By: #### L [id number] #### [facility] ([facility]) [address] [place] [address] Hemoglobin (Bld) [Mass/Vol] 12.5 g/dL Low 13.0-17.0 [facility] Comment on above: Performed By: #### L [id number] #### [facility] ([facility]) [address] [place] [address] MCH (RBC) [Entitic mass] 30.1 pg Normal 27.0-33.0 [facility] Comment on above: Performed By: #### L [id number] #### [facility] ([facility]) [address] [place] [address] MCV (RBC) [Entitic vol] 91.6 fL Normal 82.0-98.0 [facility] Comment on above: Performed By: #### L [id number] #### [facility] ([facility]) [address] [place] [address] PLATELETS (10*3/UL) IN BLOOD AUTOMATED COUNT 176 10*3/uL Normal 150-400 [facility] Comment on above: Performed By: #### L [id number] #### [facility] ([facility]) [address] [place] [address] RBC (Bld) [#/Vol] 4.15 10*6/uL Low 4.20-5.70 [facility] Comment on above: Performed By: #### L [id number] #### [facility] ([facility]) [address] [place] [address] WBC (Bld) [#/Vol] 6.88 10*3/uL Normal 4.00-10.60 [facility] Comment on above: Performed By: #### L [id number] #### [facility] ([facility]) [address] [facility] [facility] [place] [address] NURSNOTEon 02-14-2024 NURSNOTE Discharge instructio n given , patient verbalized understanding, no follow up questions asked Normal [facility] POCT GLUCOSE METER UNSOLICIT ED RESULTSon 02-14-2024 Glucose [Mass/Vol] 231 mg/dL High 70-105 [facility] Comment on above: Order Comment: Waive d Testing in the ED is performed under the ED CLIA certificate #[id number]. Result Comment: [email or web address] enl3 Performed By: #### L [id number] #### [facility] ([facility]) [address] [place] [address] Glucose [Mass/Vol] 128 mg/dL High 70-105 [facility] Comment on above: Order Comment: Waive d Testing in the ED is performed under the ED CLIA certificate #[id number]. Result Comment: [email or web address] enl3 Performed By: #### L [id number] #### [facility] ([facility]) [address] [place] [address] TROPONIN Ion 02-14-2024 Troponin I.cardiac [Mass/Vol] 1.08 ng/mL Critically high 0.00-0.04 [facility] Comment on above: Result Comment: M-LA EVIOUS CRITICAL RESULT Previous result verified on 02/14/2024 0605 on specimen/case [id number] called with component Troponin I for procedure Troponin I with value 1.69 ng/mL. Performed By: #### L [id number] #### [facility] ([facility]) [address] [place] [address] Troponin I.cardiac [Mass/Vol] 1.69 ng/mL Critically high 0.00-0.04 [facility] Comment on above: Performed By: #### L [id number] #### [facility] ([facility]) [address] [facility] [facility] [place] [address] 30on 02-13-2024 30 The patient is Moder ately Stable - Low risk of patient condition declining or worsening The patient's goals for the shift include get better The clinical goals for the shift include VSS Normal [facility] 30 The patient is Moder [...] and behaviors that affect risk of falls Bellamy fall precautions as indicated by assessment Educate [...] and behaviors that affect risk of falls Bellamy fall precautions as indicated by assessment Educate [...] and prevent overall improvement and discharge Normal [facility] ANTI-XA (HEPARIN LEVEL)on HEPARIN UNFRACTIONATED (U/ML) IN PPP BY CHROMOGENIC METHOD 0.85 IU/mL High 0.3-0.7 [facility] Comment on above: Order Comment: Check anti-Xa level every 6 hours while on heparin infusion, or per protocol. Result Comment: [place] roxaban and Apixaban will interfere with the anti Xa assay used to monitor UFH and LMWH. Performed By: #### L [id number] #### [facility] ([facility]AKER) [address] [place] [address] APTTon 02-13-2024 ACTIVATED PARTIAL THROMBOPLASTIN TIME IN PPP BY COAGULATION ASSAY 93.5 Seconds High 25.0-35.0 [facility] Comment on above: Order Comment: Basel ine aPTT before initiating heparin infusion. Result Comment: Clin ical significance of the APTT is questionable in the presence of heparin. Performed By: #### L [id number] #### [facility] ([facility]) [address] [place] [address] B-TYPE NATRIURETIC PEPTIDEon 02-13-2024 Natriuretic peptide B (Bld) [Mass/Vol] 693 pg/mL High 0-100 [facility] Comment on above: Performed By: #### L [id number] #### [facility] ([facility]) [address] [place] [address] BASIC METABOLIC PANELon 01-30 Anion gap [Moles/Vol] 10 mmol/L Normal 7-20 [facility] Comment on above: Performed By: #### L [id number] #### [facility] ([facility]) [address] [place] [address] Calcium [Mass/Vol] 8.9 mg/dL Normal 8.6-10.3 [facility] Comment on above: Performed By: #### L [id number] #### [facility] ([facility]) [address] [place] [address] Chloride [Moles/Vol] 107 mmol/L Normal 98-107 [facility] Comment on above: Performed By: #### L [id number] #### [facility] ([facility]) [address] [place] [address] CO2 [Moles/Vol] 25 mmol/L Normal 21-31 [facility] Comment on above: Performed By: #### L [id number] #### [facility] ([facility] [address] [place] [address] Creatinine [Mass/Vol] 1.61 mg/dL High 0.70-1.30 [facility] Comment on above: Performed By: #### L [id number] #### [facility] ([facility]) [address] [place] [address] GLOMERULAR FILTRATION RATE ML/MIN/1.73 SQ M.PREDICTED 45.2 mL/min/1.73m*2 Low >60.0 [facility] Comment on above: Result Comment: [facility]???s estimated glomerular filtration rate (eGFR) [...] individuals. Performed By: #### L [id number] #### [facility] ([facility]) [address] [place] [address] Glucose [Mass/Vol] 174 mg/dL High 70-100 [facility] Comment on above: Performed By: #### L [id number] #### [facility] ([facility]) [address] [place] [address] Potassium [Moles/Vol] 4.3 mmol/L Normal 3.5-5.1 [facility] Comment on above: Performed By: #### L [id number] #### [facility] ([facility]) [address] [place] [address] Sodium [Moles/Vol] 138 mmol/L Normal 136-145 [facility] Comment on above: Performed By: #### L [id number] #### [facility] ([facility]) [address] [place] [address] Urea nitrogen [Mass/Vol] 20 mg/dL Normal 7-25 [facility] Comment on above: Performed By: #### L [id number] #### [facility] ([facility]) [address] [place] [address] UREA NITROGEN/CREATININE (MASS RATIO) IN SER/PLAS 12.4 Normal [facility] Comment on above: Performed By: #### L [id number] #### [facility] ([facility]) [address] [place] [address] CBC WITH AUTO DIFFERENTIALon 02-13-2024 Basophils (Bld) [#/Vol] 0.05 10*3/uL Normal 0.00-0.20 [facility] Comment on above: Performed By: #### L [id number] #### [facility] (BEAKER) [address] [place] [address] Basophils/100 WBC (Bld) 0.7 % Normal 0.0-1.0 [facility] Comment on above: Performed By: #### L [id number] #### [facility] [address] [place] [address] Eosinophils (Bld) [#/Vol] 0.13 10*3/uL Normal 0.00-0.50 [facility] Comment on above: Performed By: #### L [id number] #### [facility] ([facility]) [address] [place] [address] Eosinophils/100 WBC (Bld) 1.8 % Normal 0.0-6.0 [facility] Comment on above: Performed By: #### L [id number] #### [facility] ([facility]) [address] [place] [address] Erythrocyte distribution width (RBC) [Ratio] 13.4 % Normal 11.5-15.0 [facility] Comment on above: Performed By: #### L [id number] #### [facility] ([facility]) [address] [place] [address] ERYTHROCYTE MEAN CORPUSCULAR HEMOGLOBIN CONCENTRATION (G/DL) BY AUTOMATED 34.1 g/dL Normal 32.0-35.0 [facility] Comment on above: Performed By: #### L [id number] #### [facility] ([facility]) [address] [place] [address] Hematocrit (Bld) [Volume fraction] 40.2 % Normal 39.0-55.0 [facility] Comment on above: Performed By: #### L [id number] #### [facility] (BEAKER) [address] [place] [address] Hemoglobin (Bld) [Mass/Vol] 13.7 g/dL Normal 13.0-17.0 [facility] Comment on above: Performed By: #### L [id number] #### [facility] (BEAKER) [address] [place] [address] Immature granulocytes (Bld) [#/Vol] 0.03 10*3/uL Normal 0.00-0.20 [facility] Comment on above: Performed By: #### L [id number] #### [facility] ([facility] [address] [place] [address] Immature granulocytes/100 WBC (Bld) 0.4 % Normal 0.0-1.0 [facility] Comment on above: Performed By: #### L [id number] #### [facility] ([facility] [address] [place] [address] Lymphocytes (Bld) [#/Vol] 1.64 10*3/uL Normal 1.20-4.00 [facility] Comment on above: Performed By: #### L [id number] #### [facility] ([facility] [address] [place] [address] Lymphocytes/100 WBC (Bld) 22.3 % Normal 20.0-45.0 [facility] Comment on above: Performed By: #### L [id number] #### [facility] (BEAKER) [address] [place] [address] MCH (RBC) [Entitic mass] 30.2 pg Normal 27.0-33.0 [facility] Comment on above: Performed By: #### L [id number] #### [facility] (BEAKER) [address] [place] [address] MCV (RBC) [Entitic vol] 88.5 fL Normal 82.0-98.0 [facility] Comment on above: Performed By: #### L [id number] #### [facility] (BEAKER) [address] [place] [address] Monocytes (Bld) [#/Vol] 0.69 10*3/uL Normal 0.10-1.00 [facility] Comment on above: Performed By: #### L [id number] #### [facility] ([facility]) [address] [place] [address] Monocytes/100 WBC (Bld) 9.4 % Normal 5.0-12.0 [facility] Comment on above: Performed By: #### L [id number] #### [facility] ([facility]) [address] [place] [address] Neutrophils (Bld) [#/Vol] 4.80 10*3/uL Normal 1.60-7.60 [facility] Comment on above: Performed By: #### L [id number] #### [facility] ([facility]) [address] [place] [address] Neutrophils/100 WBC (Bld) 65.4 % Normal 40.0-72.0 [facility] Comment on above: Performed By: #### L [id number] #### [facility] ([facility]) [address] [place] [address] NRBC (PER 100 WBCS) BY AUTOMATED COUNT 0.0 % Normal 0 [facility] Comment on above: Performed By: #### L [id number] #### [facility] ([facility]) [address] [place] [address] PLATELETS (10*3/UL) IN BLOOD AUTOMATED COUNT 202 10*3/uL Normal 150-400 [facility] Comment on above: Performed By: #### L [id number] #### [facility] ([facility]) [address] [place] [address] RBC (Bld) [#/Vol] 4.54 10*6/uL Normal 4.20-5.70 [facility] Comment on above: Performed By: #### L [id number] #### [facility] ([facility]) [address] [place] [address] WBC (Bld) [#/Vol] 7.34 10*3/uL Normal 4.00-10.60 [facility] [place] [facility] Comment on above: Performed By: #### L [id number] #### [facility] HARRY) [address] [place] [address] CONSULTon 02-13-2024 CONSULT ------ -- Attestation signed [...] Patient : Lani Lizama; 73 y.o. Location: [id number] Attending: Aramis Sellers [...] III who presented as a transferred from [facility] with NSTEMI. Cardiology planning for cath [...] (H) 08/31 (more content not included)... Normal [facility] CONSULT ------ -- Attestation signed by Yfn [...] III who presented as a transferred from [facility] with NSTEMI. The patient complained of [...] and nitro drip. When he arrived to [facility] he was chest pain-free. Troponin this [...] artery stenosis, Coronary artery disease, Diabetes mellitus ([facility]), Hyperlipidemia, Hypertension, PVD (peripheral vascular disease) ([facility]), and Third degree heart block ([facility]). Surgical History He has a [...] PAIN pantoprazole (Pr (more content not included)... [facility] HPon 02-13-2024 HP ------ -- Attestation signed by Parul ePna MD at 02/17/2024 3:51 PM s -- [...] were addressed and answered. Jenny Fernandez MD El[employer] - PGY6 [facility] MAGNESIUMon 02-13-2024 Magnesium [Mass/Vol] 2.0 mg/dL Normal 1.9-2.7 [facility] Comment on above: Performed By: #### L [id number] #### [facility] (BEAKER) [address] [place] [address] POCT GLUCOSE METER UNSOLICIT ED RESULTSon 02-13-2024 Glucose [Mass/Vol] 200 mg/dL High 70-105 [facility] Comment on above: Order Comment: Waive d Testing in the ED is performed under the ED CLIA certificate #[id number]. Result Comment: roberto macias Performed By: #### L [id number] #### [facility] ([facility]) [address] [place] [address] Glucose [Mass/Vol] 187 mg/dL High 70-105 [facility] Comment on above: Order Comment: Waive d Testing in the ED is performed under the ED CLIA certificate #[id number]. Result Comment: chava [email or web address] Performed By: #### L [id number] #### [facility] ([facility]) [address] [place] [address] Glucose [Mass/Vol] 141 mg/dL High 70-105 [facility] Comment on above: Order Comment: Waive d Testing in the ED is performed under the ED CLIA certificate #[id number]. Result Comment: [email or web address] [email or web address] Performed By: #### L [id number] #### [facility] ([facility]) [address] [place] [address] Glucose [Mass/Vol] 166 mg/dL High 70-105 [facility] Comment on above: Order Comment: Waive d Testing in the ED is performed under the ED CLIA certificate #[id number]. Result Comment: nita cordon Performed By: #### L [id number] #### [facility] ([facility]) [address] [place] [address] PROTIME-INRon 02-13-2024 INR IN PPP BY COAGULATION ASSAY 1.17 High 0.90-1.10 [facility] Comment on above: Result Comment: ACCC P [...] 1995;[id number]. Performed By: #### L [id number] #### [facility] [employer]) [address] [place] [address] PROTHROMBIN TIME (PT) IN PPP BY COAGULATION ASSAY 14.9 Seconds High 12.3-14.8 [facility] Comment on above: Performed By: #### L [id number] #### [facility] [employer]) [address] [place] [address] TROPONIN Ion 02-13-2024 Troponin I.cardiac [Mass/Vol] 2.02 ng/mL Critically high 0.00-0.04 [facility] Comment on above: Result Comment: M-LA EVIOUS CRITICAL RESULT Previous result verified on 02/13/2024 0606 on specimen/case [id number] called with component Troponin I for procedure Troponin I with value 3.34 ng/mL. Performed By: #### L [id number] #### [facility] [employer]) [address] [place] [address] Troponin I.cardiac [Mass/Vol] 2.10 ng/mL Critically high 0.00-0.04 [facility] Comment on above: Result Comment: M-LA EVIOUS CRITICAL RESULT Previous result verified on 02/13/2024 0606 on specimen/case [id number] called with component Troponin I for procedure Troponin I with value 3.34 ng/mL. Performed By: #### L [id number] #### [facility] (BEAKER) [address] [place] [address] Troponin I.cardiac [Mass/Vol] 3.34 ng/mL Critically high 0.00-0.04 [facility] Comment on above: Result Comment: ADILIA BRYANT INITIAL CRITICAL HIGH; RESPUN AND RETESTED Performed By: #### L [id number] #### [facility] (BEAKER) [address] [place] [address] Activated partial thrombopla stin time (aPTT) in platelet poor plasma by coagulation aon 02-12-2024 aPTT Coag (PPP) [Time] Activated partial thromboplastin time (aPTT) in platelet poor plasma by coagulation a 22.3-36.2 [facility] Basophils Auto (Bld) [#/Vol] on 02-12-2024 Basophils (Bld) [#/Vol] Automated basophil count 0.0-0.1 [facility] Basophils/100 WBC Auto (Bld) on 02-12-2024 Basophils/100 WBC (Bld) Automated basophil % 0.2-2.0 [facility] Eosinophils/100 WBC Auto (Bl d)on 02-12-2024 Eosinophils/100 WBC (Bld) Automated eosinophil % 0.9-7.0 [facility] Erythrocyte distribution wid th Auto (RBC) [Ratio]on 02-12-2024 Erythrocyte distribution width (RBC) [Ratio] Erythrocyte distribution width [Ratio] by Automated count 11.0-15.0 [facility] Estimated glomerular filtrat ion rate (GFR) non- Americanon 02-12-2024 GFR/1.73 sq M.predicted among non-blacks MDRD (S/P/Bld) [Vol rate/Area] Estimated glomerular filtration rate (GFR) non- Low >=60 mL/min/1.7 3m 2 [facility] Hematocrit Auto (Bld) [Volum e fraction]on 02-12-2024 Hematocrit (Bld) [Volume fraction] Hematocrit [Volume Fraction] of Blood by Automated count 42.0-54.0 [facility] Hemoglobin [Mass/volume] in Bloodon 02-12-2024 Hemoglobin (Bld) [Mass/Vol] Hemoglobin [Mass/volume] in Blood 14.0-18.0 [facility] INR in Platelet poor plasma by Coagulation assayon 02-12-2024 INR Coag (PPP) [Relative time] INR in Platelet poor plasma by Coagulation assay [facility] Comment on above: DESIRED INR:2.0-3.0 CONDITIONS NOT LISTED BELOW2.5-3.5 FOR PROSTHETIC HEART VALVE REPLACEMENT2.5-3.5 RECURRENT THROMBOSIS Laboratory - Chemistry and C hemistry - challengeon 02-12-2024 Calcium [Mass/Vol] 9.4 mg/dL 8.5-10.1 [facility] Chloride [Moles/Vol] 106 mmol/L 98-107 [facility] CO2 [Moles/Vol] 22.9 mmol/L 21.0-32.0 [facility] Creatinine [Mass/Vol] 1.97 mg/dL High 0.70-1.30 [facility] GFR/1.73 sq M.predicted MDRD (S/P/Bld) [Vol rate/Area] 41 mL/min/{1.73_m2} Low >=60 mL/min/1.7 3m 2 [facility] Glucose [Mass/Vol] 236 mg/dL High 74-106 [facility] Potassium [Moles/Vol] 3.9 mmol/L 3.5-5.1 [facility] Comment on above: SPECIMEN SLIGHTLY HE MOLYZED Sodium [Moles/Vol] 141 mmol/L 136-145 [facility] Urea nitrogen [Mass/Vol] 21.0 mg/dL High 7.0-18.0 [facility] Urea nitrogen/Creatinine [Mass ratio] 10.7 mg/mg [facility] Laboratory - Hematology and Cell countson 02-12-2024 Immature granulocytes/100 WBC (Bld) 0.5 % 0.0-0.5 [facility] Leukocytes [#/volume] correc soraya for nucleated erythrocytes in Blood by Automated counon 02-12-2024 WBC corrected for nucl RBC Auto (Bld) [#/Vol] Leukocytes [#/volume] corrected for nucleated erythrocytes in Blood by Automated coun 4.0-11.0 [facility] Lymphocytes Auto (Bld) [#/Vo l]on 02-12-2024 Lymphocytes (Bld) [#/Vol] Lymphocytes [#/volume] in Blood by Automated count 1.2-3.8 [facility] Lymphocytes/100 WBC Auto (Bl d)on 02-12-2024 Lymphocytes/100 WBC (Bld) Lymphocytes/100 leukocytes in Blood by Automated count 20.5-60.0 [facility] MCH Auto (RBC) [Entitic mass ]on 02-12-2024 MCH (RBC) [Entitic mass] MCH [Entitic mass] by Automated count 25.9-34.0 [facility] MCHC Auto (RBC) [Mass/Vol]on 02-12-2024 MCHC (RBC) [Mass/Vol] MCHC [Mass/volume] by Automated count 29.9-35.2 [facility] MCV Auto (RBC) [Entitic vol] on 02-12-2024 MCV (RBC) [Entitic vol] MCV [Entitic volume] by Automated count 80.0-94.0 [facility] Monocytes Auto (Bld) [#/Vol] on 02-12-2024 Monocytes (Bld) [#/Vol] Automated blood monocyte count 0.3-0.8 [facility] Monocytes/100 WBC Auto (Bld) on 02-12-2024 Monocytes/100 WBC (Bld) Automated monocyte % 1.7-12.0 [facility] Neutrophils Auto (Bld) [#/Vo l]on 02-12-2024 Neutrophils (Bld) [#/Vol] Neutrophils [#/volume] in Blood by Automated count 1.4-6.5 [facility] Neutrophils/100 WBC Auto (Bl d)on 02-12-2024 Neutrophils/100 WBC (Bld) Automated neutrophil % 43.0-75.0 [facility] No Panel Informationon 02-11 Troponin I High Sensitivity 85.0 pg/mL Critically high 4.0-76.1 [facility] Comment on above: RESULTS CALLED TO SHAHRAM [...] Eosinophils # (Auto) 0.2 10 3/uL 0.0-0.7 [facility] Immature Granulocyte # (Auto) 0.04 10 3/uL High 0.00-0.03 [facility] Platelet mean volume Auto (B ld) [Entitic vol]on 02-12-2024 Platelet mean volume (Bld) [Entitic vol] Platelet mean volume [Entitic volume] in Blood by Automated count 9.5-13.5 [facility] Platelets Auto (Bld) [#/Vol] on 02-12-2024 Platelets (Bld) [#/Vol] Platelets [#/volume] in Blood by Automated count 150-450 [facility] Prothrombin time (PT)on 01-30 PT Coag (PPP) [Time] Prothrombin time (PT) 9.0- 11.6 [facility] RBC Auto (Bld) [#/Vol]on RBC (Bld) [#/Vol] Erythrocytes [#/volu me] in Blood by Automated count 4.70-6.10 [facility] Serum or plasma anion gap de terminationon 02-12-2024 Anion gap [Moles/Vol] Serum or plasma an ion gap determination [facility] Erythrocyte distribution wid th Auto (RBC) [Ratio]on 12-30-2023 Erythrocyte distribution width (RBC) [Ratio] 14.3 % 11.0-15.0 [facility] Estimated glomerular filtrat ion rate (GFR) non- Americanon 12-30-2023 GFR/1.73 sq M.predicted among non-blacks MDRD (S/P/Bld) [Vol rate/Area] 31 mL/min/{1.73_m2} Low >=60 [facility] Hematocrit Auto (Bld) [Volum e fraction]on 12-30-2023 Hematocrit (Bld) [Volume fraction] 45.2 % 42.0-54.0 [facility] Hemoglobin [Mass/volume] in Bloodon 12-30-2023 Hemoglobin (Bld) [Mass/Vol] 14.8 g/dL 14.0-18.0 [facility] Laboratory - Chemistry and C hemistry - challengeon 12-30-2023 Albumin [Mass/Vol] 3.8 g/dL 3.4-5.0 [facility] Calcium [Mass/Vol] 9.9 mg/dL 8.5-10.1 [facility] Chloride [Moles/Vol] 103 mmol/L 98-107 [facility] CO2 [Moles/Vol] 27.9 mmol/L 21.0-32.0 [facility] Creatinine [Mass/Vol] 2.10 mg/dL High 0.70-1.30 [facility] GFR/1.73 sq M.predicted MDRD (S/P/Bld) [Vol rate/Area] 38 mL/min/{1.73_m2} Low >=60 [facility] Glucose [Mass/Vol] 207 mg/dL High 74-106 [facility] Magnesium [Mass/Vol] 2.1 mg/dL 1.8-2.4 [facility] Potassium [Moles/Vol] 4.7 mmol/L 3.5-5.1 [facility] Sodium [Moles/Vol] 137 mmol/L 136-145 [facility] Urate [Mass/Vol] 4.1 mg/dL 3.5-7.2 [facility] Urea nitrogen [Mass/Vol] 29.0 mg/dL High 7.0-18.0 [facility] Urea nitrogen/Creatinine [Mass ratio] 13.8 mg/mg [facility] Laboratory - Urinalysison Protein (U) [Mass/Vol] 26.9 mg/dL High <=11.9 [facility] Leukocytes [#/volume] correc soraya for nucleated erythrocytes in Blood by Automated counon 12-30-2023 WBC corrected for nucl RBC Auto (Bld) [#/Vol] 8.7 10 3/uL 4.0-11.0 [facility] MCH Auto (RBC) [Entitic mass ]on 12-30-2023 MCH (RBC) [Entitic mass] 30.0 pg 25.9-34.0 [facility] MCHC Auto (RBC) [Mass/Vol]on 12-30-2023 MCHC (RBC) [Mass/Vol] 32.7 g/dL 29.9-35.2 [facility] MCV Auto (RBC) [Entitic vol] on 12-30-2023 MCV (RBC) [Entitic vol] 91.7 fL 80.0-94.0 [facility] No Panel Informationon 12-29 25-Hydroxy Vitamin D Total 47.5 ng/mL [facility] Comment on above: <20 ng/mL Vit D defi cient20-<30 ng/mL Vit D [id number] ng/mL Vit D sufficient>100 ng/mL Potential Toxicity Parathyroid Hormone (Intact) 27 pg/mL 15-65 [facility] Comment on above: Performed at: [facility] [place] [id number] Director: Kwaku Park PhD, Phone: [phone] Phosphorus Level 3.7 mg/dL 2.6-4.7 [facility] Urine Random Creatinine 85.11 mg/dL 20.00-300. 00 [facility] Platelet mean volume Auto (B ld) [Entitic vol]on 12-30-2023 Platelet mean volume (Bld) [Entitic vol] 9.3 fL Low 9.5-13.5 [facility] Platelets Auto (Bld) [#/Vol] on 12-30-2023 Platelets (Bld) [#/Vol] 193 10 3/uL 150-450 [facility] RBC Auto (Bld) [#/Vol]on RBC (Bld) [#/Vol] 4.93 10 6/uL 4.70-6.10 [facility] Serum or plasma anion gap de terminationon 12-30-2023 Anion gap [Moles/Vol] 10.8 mmol/L [facility] Urine protein/creatinine rat ioon 12-30-2023 Protein/Creatinine (U) [Ratio] 0.32 [facility] HbA1c HPLC (Bld) [Mass fract ion]on 10-17-2023 HbA1c (Bld) [Mass fraction] 7.5 % [facility] No Panel Informationon 10-16 Bedside Glucose 108 [facility] Office Visiton 10-07-2023 Follow-up visit [id number] Lani Lizama 1950 M Date Provider Department Center 10/07/2023 [id number], EHAB CARD [facility] Family History Problem Relation Age of Onset Heart attack Mother Other Father Other Brother Heart attack Maternal Grandmother Heart attack Maternal Grandfather Family Status - Relation Status Age at Mother Father Brother Maternal Grandmother Maternal Grandfather Level of Service:92105 [place] OFFICE/OUTPATIENT ESTABLISHED LOW MDM 20 MIN Normal [facility] 30on 09-28-2023 30 The patient [...] to stop on the way home. Normal [facility] BASIC METABOLIC PANELon - Anion gap [Moles/Vol] 13 mmol/L Normal 7-20 [facility] Comment on above: Performed By: #### L [id number] #### [facility] (BEAKER) [address] [place] [address] Calcium [Mass/Vol] 8.8 mg/dL Normal 8.6-10.3 [facility] Comment on above: Performed By: #### L [id number] #### [facility] (BEAKER) [address] [place] [address] Chloride [Moles/Vol] 104 mmol/L Normal 98-107 [facility] Comment on above: Performed By: #### L [id number] #### [facility] ([facility]) [address] [place] [address] CO2 [Moles/Vol] 24 mmol/L Normal 21-31 [facility] Comment on above: Performed By: #### L [id number] #### [facility] ([facility]) [address] [place] [address] Creatinine [Mass/Vol] 1.59 mg/dL High 0.70-1.30 [facility] Comment on above: Performed By: #### L [id number] #### [facility] ([facility]) [address] [place] [address] GLOMERULAR FILTRATION RATE ML/MIN/1.73 SQ M.PREDICTED 46.1 mL/min/1.73m*2 Low >60.0 [facility] Comment on above: Result Comment: [facility]???s estimated glomerular filtration rate (eGFR) [...] individuals. Performed By: #### L [id number] #### [facility] ([facility]) [address] [place] [address] Glucose [Mass/Vol] 188 mg/dL High 70-100 [facility] Comment on above: Performed By: #### L [id number] #### [facility] ([facility]) [address] [place] [address] Potassium [Moles/Vol] 4.1 mmol/L Normal 3.5-5.1 [facility] Comment on above: Performed By: #### L [id number] #### [facility] [address] [address] Sodium [Moles/Vol] 137 mmol/L Normal 136-145 [facility] Comment on above: Performed By: #### L [id number] #### [facility] ([facility] [address] [place] [address] Urea nitrogen [Mass/Vol] 26 mg/dL High 7-25 [facility] Comment on above: Performed By: #### L [id number] #### [facility] ([facility]) [address] [place] [address] UREA NITROGEN/CREATININE (MASS RATIO) IN SER/PLAS 16.4 Normal [facility] Comment on above: Performed By: #### L [id number] #### [facility] ([facility]) [address] [place] [address] CBCon 09-28-2023 Erythrocyte distribution width (RBC) [Ratio] 14.2 % Normal 11.5-15.0 [facility] Comment on above: Performed By: #### L [id number] #### [facility] ([facility]) [address] [place] [address] ERYTHROCYTE MEAN CORPUSCULAR HEMOGLOBIN CONCENTRATION (G/DL) BY AUTOMATED 33.2 g/dL Normal 32.0-35.0 [facility] Comment on above: Performed By: #### L [id number] #### [facility] ([facility]) [address] [place] [address] Hematocrit (Bld) [Volume fraction] 43.4 % Normal 39.0-55.0 [facility] Comment on above: Performed By: #### L [id number] #### [facility] [address] [place] [address] Hemoglobin (Bld) [Mass/Vol] 14.4 g/dL Normal 13.0-17.0 [facility] Comment on above: Performed By: #### L [id number] #### [facility] ([facility] [address] [place] [address] MCH (RBC) [Entitic mass] 28.4 pg Normal 27.0-33.0 [facility] Comment on above: Performed By: #### L [id number] #### [facility] ([facility]) [address] [place] [address] MCV (RBC) [Entitic vol] 85.6 fL Normal 82.0-98.0 [facility] Comment on above: Performed By: #### L [id number] #### [facility] ([facility]) [address] [place] [address] PLATELETS (10*3/UL) IN BLOOD AUTOMATED COUNT 159 10*3/uL Normal 150-400 [facility] Comment on above: Performed By: #### L [id number] #### [facility] ([facility]) [address] [place] [address] RBC (Bld) [#/Vol] 5.07 10*6/uL Normal 4.20-5.70 [facility] Comment on above: Performed By: #### L [id number] #### [facility] ([facility]) [address] [place] [address] WBC (Bld) [#/Vol] 7.88 10*3/uL Normal 4.00-10.60 [facility] Comment on above: Performed By: #### L [id number] #### [facility] ([facility]) [address] [place] [address] POCT GLUCOSE METER UNSOLICIT ED RESULTSon 09-28-2023 Glucose [Mass/Vol] 176 mg/dL High 70-105 [facility] Comment on above: Order Comment: Waive d Testing in the ED is performed under the ED CLIA certificate #[id number]. Result Comment: [email or web address] [email or web address] Performed By: #### L [id number] #### [facility] ([facility] [facility]) [address] [place] [address] 30on 09-27-2023 30 Problem: Pain - Adul [...] shift include stable VS, cardiac cath Normal [facility] 30 Daily Case Managemen t Update Multidisciplinary rounds have been completed. Barriers to Discharge: Patient is a direct admitted from [place], due chest pain and elevated troponin. Tx [...] Consultation Consultation and Management 09/26/23 1713 Normal [facility] 30 The patient is Moder [...] and maintained or improved Outcome: Progressing Normal [facility] ANTI-XA (HEPARIN LEVEL)on HEPARIN UNFRACTIONATED (U/ML) IN PPP BY CHROMOGENIC METHOD 0.47 IU/mL Normal 0.3-0.7 [facility] Comment on above: Order Comment: Check anti-Xa level every 6 hours while on heparin infusion, or per protocol. Result Comment: [place] roxaban and Apixaban will interfere with the anti Xa assay used to monitor UFH and LMWH. Performed By: #### L [id number] #### [facility] ([facility]) [address] [place] [address] HEPARIN UNFRACTIONATED (U/ML) IN PPP BY CHROMOGENIC METHOD 0.55 IU/mL Normal 0.3-0.7 [facility] Comment on above: Order Comment: Check anti-Xa level every 6 hours while on heparin infusion, or per protocol. Result Comment: [place] roxaban and Apixaban will interfere with the anti Xa assay used to monitor UFH and LMWH. Performed By: #### L [id number] #### [facility] ([facility]) [address] [place] [address] BASIC METABOLIC PANELon 08-31 Anion gap [Moles/Vol] 16 mmol/L Normal 7-20 [facility] Comment on above: Performed By: #### L [id number] #### [facility] ([facility]) [address] [place] [address] Calcium [Mass/Vol] 9.2 mg/dL Normal 8.6-10.3 [facility] Comment on above: Performed By: #### L [id number] #### [facility] ([facility]) [address] [place] [address] Chloride [Moles/Vol] 105 mmol/L Normal 98-107 [facility] Comment on above: Performed By: #### L [id number] #### [facility] ([facility]) [address] [place] [address] CO2 [Moles/Vol] 23 mmol/L Normal 21-31 [facility] Comment on above: Performed By: #### L [id number] #### [facility] ([facility] [address] [place] [address] Creatinine [Mass/Vol] 1.56 mg/dL High 0.70-1.30 [facility] Comment on above: Performed By: #### L [id number] #### [facility] ([facility]) [address] [place] [address] GLOMERULAR FILTRATION RATE ML/MIN/1.73 SQ M.PREDICTED 47.2 mL/min/1.73m*2 Low >60.0 [facility] Comment on above: Result Comment: [facility]???s estimated glomerular filtration rate (eGFR) [...] individuals. Performed By: #### L [id number] #### [facility] ([facility]) [address] [place] [address] Glucose [Mass/Vol] 166 mg/dL High 70-100 [facility] Comment on above: Performed By: #### L [id number] #### [facility] ([facility]) [address] [place] [address] Potassium [Moles/Vol] 4.3 mmol/L Normal 3.5-5.1 [facility] Comment on above: Performed By: #### L [id number] #### [facility] ([facility]) [address] [place] [address] Sodium [Moles/Vol] 140 mmol/L Normal 136-145 [facility] Comment on above: Performed By: #### L [id number] #### [facility] ([facility]) [address] [place] [address] Urea nitrogen [Mass/Vol] 26 mg/dL High 7-25 [facility] Comment on above: Performed By: #### L [id number] #### [facility] ([facility]) [address] [place] [address] UREA NITROGEN/CREATININE (MASS RATIO) IN SER/PLAS 16.7 Normal [facility] Comment on above: Performed By: #### L [id number] #### [facility] ([facility]) [address] [place] [address] CBCon 09-27-2023 Erythrocyte distribution width (RBC) [Ratio] 14.4 % Normal 11.5-15.0 [facility] Comment on above: Performed By: #### L [id number] #### [facility] ([facility]) [address] [place] [address] ERYTHROCYTE MEAN CORPUSCULAR HEMOGLOBIN CONCENTRATION (G/DL) BY AUTOMATED 33.1 g/dL Normal 32.0-35.0 [facility] Comment on above: Performed By: #### L [id number] #### [facility] ([facility]) [address] [place] [address] Hematocrit (Bld) [Volume fraction] 46.2 % Normal 39.0-55.0 [facility] Comment on above: Performed By: #### L [id number] #### [facility] ([facility]) [address] [place] [address] Hemoglobin (Bld) [Mass/Vol] 15.3 g/dL Normal 13.0-17.0 [facility] Comment on above: Performed By: #### L [id number] #### [facility] ([facility]) [address] [place] [address] MCH (RBC) [Entitic mass] 28.7 pg Normal 27.0-33.0 [facility] Comment on above: Performed By: #### L [id number] #### [facility] ([facility]) [address] [place] [address] MCV (RBC) [Entitic vol] 86.7 fL Normal 82.0-98.0 [facility] Comment on above: Performed By: #### L [id number] #### [facility] ([facility]) [address] [facility] [place] [address] PLATELETS (10*3/UL) IN BLOOD AUTOMATED COUNT 158 10*3/uL Normal 150-400 [facility] Comment on above: Performed By: #### L [id number] #### [facility] ([facility]) [address] [address] RBC (Bld) [#/Vol] 5.33 10*6/uL Normal 4.20-5.70 [facility] Comment on above: Performed By: #### L [id number] #### [facility] ([facility]) [address] [facility] [place] [address] WBC (Bld) [#/Vol] 7.95 10*3/uL Normal 4.00-10.60 [facility] Comment on above: Performed By: #### L [id number] #### [facility] ([facility]) [address] [facility] [place] [address] CONSULTon 09-27-2023 CONSULT Cardiology Consult N [email or web address] I personally saw and examined the patient on the same date of service as resident/fellow Dr henderson. I discussed the findings and therapeutic plan with the resident/fellow Dr henderson. I agree with the documentation, except for any edits/updates below. Teaching Physician's Revisions: None Patient presents with typical chest pain associated with elevated troponin consistent with non-ST elevation MT. The patient has known history of coronary [...] disease, 3rd degree heart block (s/p BiV EXERCISE SCIENTIST-D) that presented to outside hospital w/ c/o [...] insulin dete (more content not included)... Normal [facility] HPon 09-27-2023 HP H&P reviewed. The jaron mark was interviewed and examined. 72 y/o male with a significant PMHx for HFpEF (NYHA class 3), coronary artery disease [s/p 5 vessel CABG (patient reports CABG performed in 1995), 7 stents with most recent cath in Dec 2022 with patent grafts x4], DM2, hyperlipidemia, peripheral vascular disease, 3rd degree heart block (s/p BiV EXERCISE SCIENTIST-D) that presented to outside hospital w/ c/o chest pain found to have NSTEM (trop peak at 4.2) Will proceed with coronary and grafts angiogram for further assessment. Procedure's details, risks and benefits discussed with the patient and he's agreeable. Normal [facility] LIPID PANELon 09-27-2023 CHOL/HDL 3.5 mg/dL Normal [facility] Comment on above: Performed By: #### L [id number] #### [facility] ([facility]) [address] [place] [address] Cholesterol [Mass/Vol] 108 mg/dL Low 120-200 [facility] Comment on above: Performed By: #### L [id number] #### [facility] ([facility]) [address] [place] [address] Magnesium [Mass/Vol] 148 mg/dL Normal 40-149 [facility] Comment on above: Result Comment: TRIG LYCERIDE REFERENCE RANGE: 20 YEARS AND OLDER CARDIOVASCULAR RISK LESS THAN 150 mg/dL LOW RISK 150 TO 199 mg/dL BORDERLINE RISK 200 mg/dL AND GREATER HIGH RISK Performed By: #### L [id number] #### [facility] ([facility]) [address] [place] [address] Magnesium [Mass/Vol] 47 mg/dL Normal 0-160 [facility] Comment on above: Performed By: #### L [id number] #### [facility] ([facility]) [address] [place] [address] Magnesium [Mass/Vol] 31 mg/dL Normal 23-92 [facility] Comment on above: Performed By: #### L [id number] #### [facility] ([facility]) [address] [place] [address] NON HDL CHOL. (LDL+VLDL) 77 Normal [facility] Comment on above: Performed By: #### L [id number] #### [facility] ([facility]) [address] [place] [address] TOTAL VLDL-C 30 mg/dL Normal 0-40 [facility] Comment on above: Performed By: #### L [id number] #### [facility] ([facility]) [address] [place] [address] POCT GLUCOSE METER UNSOLICIT ED RESULTSon 09-27-2023 Glucose [Mass/Vol] 299 mg/dL High 70-105 [facility] Comment on above: Order Comment: Waive d Testing in the ED is performed under the ED CLIA certificate #[id number]. Result Comment: roberto macias Performed By: #### L [id number] #### [facility] ([facility]) [address] [place] [address] Glucose [Mass/Vol] 140 mg/dL High 70-105 [facility] Comment on above: Order Comment: Waive d Testing in the ED is performed under the ED CLIA certificate #[id number]. Result Comment: [email or web address] Performed By: #### L [id number] #### [facility] ([facility]) [address] [place] [address] Glucose [Mass/Vol] 193 mg/dL High 70-105 [facility] Comment on above: Order Comment: Waive d Testing in the ED is performed under the ED CLIA certificate #[id number]. Result Comment: [email or web address] [email or web address] Performed By: #### L [id number] #### [facility] ([facility]) [address] [place] [address] Glucose [Mass/Vol] 184 mg/dL High 70-105 [facility] Comment on above: Order Comment: Waive d Testing in the ED is performed under the ED CLIA certificate #[id number]. Result Comment: [email or web address] [email or web address] Performed By: #### L [id number] #### [facility] ([facility]) [address] [place] [address] TROPONIN Ion 09-27-2023 Troponin I.cardiac [Mass/Vol] 3.05 ng/mL Critically high 0.00-0.04 [facility] Comment on above: Result Comment: M-LA EVIOUS CRITICAL RESULT Previous result verified on 09/27/2023 0117 on specimen/case [id number] called with component Troponin I for procedure Troponin I with value 3.51 ng/mL. Performed By: #### L [id number] #### [facility] ([facility]) [address] [place] [address] 30on 09-26-2023 30 The patient is Moder ately Stable - Low risk of patient condition declining or worsening The patient's goals for the shift include Comfort/Rest The clinical goals for the shift include stable vital signs Normal [facility] ANTI-XA (HEPARIN LEVEL)on HEPARIN UNFRACTIONATED (U/ML) IN PPP BY CHROMOGENIC METHOD 0.82 IU/mL High 0.3-0.7 [facility] Comment on above: Order Comment: Check anti-Xa level every 6 hours while on heparin infusion, or per protocol. Result Comment: [place] roxaban and Apixaban will interfere with the anti Xa assay used to monitor UFH and LMWH. Performed By: #### L [id number] #### [facility] ([facility]) [address] [place] [address] APTTon 09-26-2023 ACTIVATED PARTIAL THROMBOPLASTIN TIME IN PPP BY COAGULATION ASSAY 34.7 Seconds Normal 25.0-35.0 [facility] Comment on above: Order Comment: Basel ine aPTT before initiating heparin infusion. Result Comment: Clin ical significance of the APTT is questionable in the presence of heparin. Performed By: #### L [id number] #### [facility] ([facility]) [address] [place] [address] Activated partial thrombopla stin time (aPTT) in platelet poor plasma by coagulation aon 09-26-2023 aPTT Coag (PPP) [Time] 28.8 s 22.3-36.2 [facility] Basophils Auto (Bld) [#/Vol] on 09-26-2023 Basophils (Bld) [#/Vol] 0.1 10 3/uL 0.0-0.1 [facility] Basophils/100 WBC Auto (Bld) on 09-26-2023 Basophils/100 WBC (Bld) 0.6 % 0.2-2.0 [facility] CBCon 09-26-2023 Erythrocyte distribution width (RBC) [Ratio] 14.3 % Normal 11.5-15.0 [facility] Comment on above: Performed By: #### L [id number] #### [facility] ([facility]) [address] [place] [address] ERYTHROCYTE MEAN CORPUSCULAR HEMOGLOBIN CONCENTRATION (G/DL) BY AUTOMATED 33.1 g/dL Normal 32.0-35.0 [facility] Comment on above: Performed By: #### L [id number] #### [facility] ([facility]) [address] [place] [address] Hematocrit (Bld) [Volume fraction] 48.7 % Normal 39.0-55.0 [facility] Comment on above: Performed By: #### L [id number] #### [facility] ([facility]) [address] [place] [address] Hemoglobin (Bld) [Mass/Vol] 16.1 g/dL Normal 13.0-17.0 [facility] Comment on above: Performed By: #### L [id number] #### [facility] ([facility]) [address] [place] [address] MCH (RBC) [Entitic mass] 28.8 pg Normal 27.0-33.0 [facility] Comment on above: Performed By: #### L [id number] #### [facility] ([facility]) [address] [place] [address] MCV (RBC) [Entitic vol] 87.0 fL Normal 82.0-98.0 [facility] Comment on above: Performed By: #### L [id number] #### [facility] ([facility]) [address] [place] [address] PLATELETS (10*3/UL) IN BLOOD AUTOMATED COUNT 170 10*3/uL Normal 150-400 [facility] Comment on above: Performed By: #### L [id number] #### [facility] ([facility]) [address] [place] [address] RBC (Bld) [#/Vol] 5.60 10*6/uL Normal 4.20-5.70 [facility] Comment on above: Performed By: #### L [id number] #### [facility] ([facility]) [address] [place] [address] WBC (Bld) [#/Vol] 7.75 10*3/uL Normal 4.00-10.60 [facility] Comment on above: Performed By: #### L [id number] #### [facility] ([facility]) [address] [place] [address] COMPREHENSIVE METABOLIC PANE Mike 09-26-2023 Albumin [Mass/Vol] 4.3 g/dL Normal 3.5-5.7 [facility] Comment on above: Performed By: #### L [id number] #### [facility] ([facility]) [address] [place] [address] ALP [Catalytic activity/Vol] 100 U/L Normal 34-104 [facility] Comment on above: Performed By: #### L [id number] #### [facility] ([facility]) [address] [place] [address] ALT [Catalytic activity/Vol] 20 U/L Normal 7-52 [facility] Comment on above: Performed By: #### L [id number] #### [facility] ([facility]) [address] [place] [address] Anion gap [Moles/Vol] 15 mmol/L Normal 7-20 [facility] Comment on above: Performed By: #### L [id number] #### [facility] ([facility]) [address] [place] [address] AST [Catalytic activity/Vol] 50 U/L High 13-39 [facility] Comment on above: Performed By: #### L [id number] #### [facility] ([facility]) [address] [place] [address] Bilirubin [Mass/Vol] 1.1 mg/dL High 0.3-1.0 [facility] Comment on above: Performed By: #### L [id number] #### [facility] ([facility]) [address] [place] [address] Calcium [Mass/Vol] 9.4 mg/dL Normal 8.6-10.3 [facility] Comment on above: Performed By: #### L [id number] #### [facility] ([facility]) [address] [place] [address] Chloride [Moles/Vol] 104 mmol/L Normal 98-107 [facility] Comment on above: Performed By: #### L [id number] #### [facility] ([facility]) [address] [place] [address] CO2 [Moles/Vol] 26 mmol/L Normal 21-31 [facility] Comment on above: Performed By: #### L [id number] #### [facility] ([facility]) [address] [place] [address] Creatinine [Mass/Vol] 1.45 mg/dL High 0.70-1.30 [facility] Comment on above: Performed By: #### L [id number] #### [facility] ([facility]) [address] [place] [address] GLOMERULAR FILTRATION RATE ML/MIN/1.73 SQ M.PREDICTED 51.5 mL/min/1.73m*2 Low >60.0 [facility] Comment on above: Result Comment: [facility]???s estimated glomerular filtration rate (eGFR) [...] individuals. Performed By: #### L [id number] #### [facility] ([facility]) [address] [place] [address] Glucose [Mass/Vol] 141 mg/dL High 70-100 [facility] Comment on above: Performed By: #### L [id number] #### [facility] ([facility]) [address] [place] [address] Potassium [Moles/Vol] 4.2 mmol/L Normal 3.5-5.1 [facility] Comment on above: Performed By: #### L [id number] #### [facility] ([facility]) [address] [place] [address] Protein [Mass/Vol] 7.4 g/dL Normal 6.0-8.3 [facility] Comment on above: Performed By: #### L [id number] #### [facility] ([facility]) [address] [place] [address] Sodium [Moles/Vol] 141 mmol/L Normal 136-145 [facility] Comment on above: Performed By: #### L [id number] #### [facility] ([facility]) [address] [place] [address] Urea nitrogen [Mass/Vol] 24 mg/dL Normal 7-25 [facility] Comment on above: Performed By: #### L [id number] #### [facility] ([facility]) [address] [place] [address] UREA NITROGEN/CREATININE (MASS RATIO) IN SER/PLAS 16.6 Normal [facility] Comment on above: Performed By: #### L [id number] #### [facility] ([facility]) [address] [place] [address] Eosinophils/100 WBC Auto (Bl d)on 09-26-2023 Eosinophils/100 WBC (Bld) 2.4 % 0.9-7.0 [facility] Erythrocyte distribution wid th Auto (RBC) [Ratio]on 09-26-2023 Erythrocyte distribution width (RBC) [Ratio] 14.3 % 11.0-15.0 [facility] Estimated glomerular filtrat ion rate (GFR) non- Americanon 09-26-2023 GFR/1.73 sq M.predicted among non-blacks MDRD (S/P/Bld) [Vol rate/Area] 39 mL/min/{1.73_m2} Low >=60 [facility] Globulin Calc (S) [Mass/Vol] on 09-26-2023 Globulin (S) [Mass/Vol] 4.0 g/dL [facility] HPon 09-26-2023 HP History Of Present I [place] Lizama is a 72 y.o. male presenting with patient is a 72-year-old gentleman with history of coronary atherosclerosisChest pain. 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 Patient woke up with chest pain around [...] and nontoxic (more content not included)... Normal [facility] Hematocrit Auto (Bld) [Volum e fraction]on 09-26-2023 Hematocrit (Bld) [Volume fraction] 49.4 % 42.0-54.0 [facility] Hemoglobin [Mass/volume] in Bloodon 09-26-2023 Hemoglobin (Bld) [Mass/Vol] 16.0 g/dL 14.0-18.0 [facility] INR in Platelet poor plasma by Coagulation assayon 09-26-2023 INR Coag (PPP) [Relative time] 0.99 {INR} [facility] Comment on above: DESIRED INR:2.0-3.0 CONDITIONS NOT LISTED BELOW2.5-3.5 FOR PROSTHETIC HEART VALVE REPLACEMENT2.5-3.5 RECURRENT THROMBOSIS LACTIC ACID WITH 4 HOUR REFL EXon 09-26-2023 LACTATE (MMOL/L) IN SER/PLAS 1.1 mmol/L Normal 0.5-2.2 [facility] Comment on above: Performed By: #### L [id number] #### [facility] ([facility]) [address] [place] [address] Laboratory - Chemistry and C hemistry - challengeon 09-26-2023 Albumin [Mass/Vol] 4.1 g/dL 3.4-5.0 [facility] ALP [Catalytic activity/Vol] 146 U/L High 46-116 [facility] ALT [Catalytic activity/Vol] 32 U/L 16-63 [facility] AST [Catalytic activity/Vol] 26 U/L 15-37 [facility] Bilirubin [Mass/Vol] 0.7 mg/dL 0.2-1.0 [facility] Calcium [Mass/Vol] 9.2 mg/dL 8.5-10.1 [facility] Chloride [Moles/Vol] 104 mmol/L 98-107 [facility] CO2 [Moles/Vol] 24.8 mmol/L 21.0-32.0 [facility] Creatinine [Mass/Vol] 1.72 mg/dL High 0.70-1.30 [facility] GFR/1.73 sq M.predicted MDRD (S/P/Bld) [Vol rate/Area] 48 mL/min/{1.73_m2} Low >=60 [facility] Glucose [Mass/Vol] 206 mg/dL High 74-106 [facility] Potassium [Moles/Vol] 4.2 mmol/L 3.5-5.1 [facility] Protein [Mass/Vol] 8.1 g/dL 6.4-8.2 [facility] Sodium [Moles/Vol] 141 mmol/L 136-145 [facility] Urea nitrogen [Mass/Vol] 26.0 mg/dL High 7.0-18.0 [facility] Urea nitrogen/Creatinine [Mass ratio] 15.1 mg/mg [facility] Laboratory - Hematology and Cell countson 09-26-2023 Immature granulocytes/100 WBC (Bld) 0.3 % 0.0-0.5 [facility] [facility] Leukocytes [#/volume] correc soraya for nucleated erythrocytes in Blood by Automated counon 09-26-2023 WBC corrected for nucl RBC Auto (Bld) [#/Vol] 10.5 10 3/uL 4.0-11.0 [facility] Lymphocytes Auto (Bld) [#/Vo l]on 09-26-2023 Lymphocytes (Bld) [#/Vol] 2.0 10 3/uL 1.2-3.8 [facility] Lymphocytes/100 WBC Auto (Bl d)on 09-26-2023 Lymphocytes/100 WBC (Bld) 18.7 % Low 20.5-60.0 [facility] MCH Auto (RBC) [Entitic mass ]on 09-26-2023 MCH (RBC) [Entitic mass] 28.4 pg 25.9-34.0 [facility] MCHC Auto (RBC) [Mass/Vol]on 09-26-2023 MCHC (RBC) [Mass/Vol] 32.4 g/dL 29.9-35.2 [facility] MCV Auto (RBC) [Entitic vol] on 09-26-2023 MCV (RBC) [Entitic vol] 87.7 fL 80.0-94.0 [facility] Monocytes Auto (Bld) [#/Vol] on 09-26-2023 Monocytes (Bld) [#/Vol] 0.8 10 3/uL 0.3-0.8 [facility] Monocytes/100 WBC Auto (Bld) on 09-26-2023 Monocytes/100 WBC (Bld) 7.3 % 1.7-12.0 [facility] Neutrophils Auto (Bld) [#/Vo l]on 09-26-2023 Neutrophils (Bld) [#/Vol] 7.4 10 3/uL High 1.4-6.5 [facility] Neutrophils/100 WBC Auto (Bl d)on 09-26-2023 Neutrophils/100 WBC (Bld) 70.7 % 43.0-75.0 [facility] No Panel Informationon 09-25 Troponin I High Sensitivity 8614.2 pg/mL High 4.0-76.1 [facility] Comment on above: RESULTS CALLED TO DR [...] Eosinophils # (Auto) 0.3 10 3/uL 0.0-0.7 [facility] Immature Granulocyte # (Auto) 0.03 10 3/uL 0.00-0.03 [facility] POCT GLUCOSE METER UNSOLICIT ED RESULTSon 09-26-2023 Glucose [Mass/Vol] 286 mg/dL High 70-105 [facility] Comment on above: Order Comment: Waive d Testing in the ED is performed under the ED CLIA certificate #[id number]. Result Comment: roberto macias Performed By: #### L [id number] #### [facility] (BEAKER) [address] [place] [address] Glucose [Mass/Vol] 151 mg/dL High 70-105 [facility] Comment on above: Order Comment: Waive d Testing in the ED is performed under the ED CLIA certificate #[id number]. Result Comment: cfet [email or web address] Performed By: #### L [id number] #### [facility] (BEAKER) [address] [place] [address] Platelet mean volume Auto (B ld) [Entitic vol]on 09-26-2023 Platelet mean volume (Bld) [Entitic vol] 10.0 fL 9.5-13.5 [facility] Platelets Auto (Bld) [#/Vol] on 09-26-2023 Platelets (Bld) [#/Vol] 194 10 3/uL 150-450 [facility] Prothrombin time (PT)on 08-31 PT Coag (PPP) [Time] 10.5 s 9.0-11.6 [facility] RBC Auto (Bld) [#/Vol]on RBC (Bld) [#/Vol] 5.63 10 6/uL 4.70-6.10 [facility] Serum or plasma albumin/glob ulin mass ratioon 09-26-2023 Albumin/Globulin [Mass ratio] 1.0 {ratio} [facility] Serum or plasma anion gap de terminationon 09-26-2023 Anion gap [Moles/Vol] 16.4 mmol/L [facility] TROPONIN Ion 09-26-2023 Troponin I.cardiac [Mass/Vol] 3.51 ng/mL Critically high 0.00-0.04 [facility] Comment on above: Result Comment: M-LA EVIOUS CRITICAL RESULT Previous result verified on 09/26/2023 2309 on specimen/case [id number] called with component Troponin I for procedure Troponin I with value 3.41 ng/mL. Performed By: #### L [id number] #### [facility] ([facility]) [address] [place] [address] Troponin I.cardiac [Mass/Vol] 3.41 ng/mL Critically high 0.00-0.04 [facility] Comment on above: Result Comment: M-LA EVIOUS CRITICAL RESULT Previous result verified on 09/26/2023 1926 on specimen/case [id number] called with component Troponin I for procedure Troponin I with value 4.22 ng/mL. Performed By: #### L [id number] #### [facility] ([facility]) [address] [place] [address] Troponin I.cardiac [Mass/Vol] 4.22 ng/mL Critically high 0.00-0.04 [facility] Comment on above: Result Comment: M-TR OPONIN INITIAL CRITICAL HIGH; RESPUN AND RETESTED Performed By: #### L [id number] #### [facility] ([facility]) [address] [place] [address] Office Visiton 09-09-2023 Follow-up visit [id number] Lani Lizama 1950 M Date Provider Department Center 09/09/2023 [facility] Luis Enrique Armas Family History Problem Relation Age of Onset Heart attack Mother Other Father Other Brother Heart attack Maternal Grandmother Heart attack Maternal Grandfather Family Status - Relation Status Age at Mother Father Brother Maternal Grandmother Maternal Grandfather Level of Service:630[address] [place] OFFICE/OUTPATIENT ESTABLISHED MOD MDM 30 MIN Normal [facility] No Panel Informationon 08-26 Prostate Specific Antigen Screen 1.37 ng/mL <=4.00 [facility] Erythrocyte distribution wid th Auto (RBC) [Ratio]on 06-24-2023 Erythrocyte distribution width (RBC) [Ratio] 14.6 % 11.0-15.0 [facility] Estimated glomerular filtrat ion rate (GFR) non- Americanon 06-24-2023 GFR/1.73 sq M.predicted among non-blacks MDRD (S/P/Bld) [Vol rate/Area] 38 mL/min/{1.73_m2} >=60 [facility] Hematocrit Auto (Bld) [Volum e fraction]on 06-24-2023 Hematocrit (Bld) [Volume fraction] 46.2 % 42.0-54.0 [facility] Hemoglobin [Mass/volume] in Bloodon 06-24-2023 Hemoglobin (Bld) [Mass/Vol] 14.5 g/dL 14.0-18.0 [facility] Laboratory - Chemistry and C hemistry - challengeon 06-24-2023 Albumin [Mass/Vol] 4.0 g/dL 3.4-5.0 [facility] Calcium [Mass/Vol] 9.2 mg/dL 8.5-10.1 [facility] Chloride [Moles/Vol] 106 mmol/L 98-107 [facility] CO2 [Moles/Vol] 25.4 mmol/L 21.0-32.0 [facility] Creatinine [Mass/Vol] 1.76 mg/dL 0.70-1.30 [facility] GFR/1.73 sq M.predicted MDRD (S/P/Bld) [Vol rate/Area] 47 mL/min/{1.73_m2} >=60 [facility] Glucose [Mass/Vol] 212 mg/dL 74-106 [facility] Magnesium [Mass/Vol] 2.1 mg/dL 1.8-2.4 [facility] Potassium [Moles/Vol] 4.5 mmol/L 3.5-5.1 [facility] Sodium [Moles/Vol] 142 mmol/L 136-145 [facility] Urate [Mass/Vol] 4.3 mg/dL 3.5-7.2 [facility] Urea nitrogen [Mass/Vol] 30.0 mg/dL 7.0-18.0 [facility] Urea nitrogen/Creatinine [Mass ratio] 17.0 mg/mg [facility] Laboratory - Urinalysison Protein (U) [Mass/Vol] 11.5 mg/dL <=11.9 [facility] Leukocytes [#/volume] correc soraya for nucleated erythrocytes in Blood by Automated counon 06-24-2023 WBC corrected for nucl RBC Auto (Bld) [#/Vol] 9.6 10 3/uL 4.0-11.0 [facility] MCH Auto (RBC) [Entitic mass ]on 06-24-2023 MCH (RBC) [Entitic mass] 28.5 pg 25.9-34.0 [facility] MCHC Auto (RBC) [Mass/Vol]on 06-24-2023 MCHC (RBC) [Mass/Vol] 31.4 g/dL 29.9-35.2 [facility] MCV Auto (RBC) [Entitic vol] on 06-24-2023 MCV (RBC) [Entitic vol] 90.8 fL 80.0-94.0 [facility] No Panel Informationon 06-23 25-Hydroxy Vitamin D Total 42.5 ng/mL [facility] Comment on above: <20 ng/mL Vit D defi cient20-<30 ng/mL Vit D [id number] ng/mL Vit D sufficient>100 ng/mL Potential Toxicity Parathyroid Hormone (Intact) 48 pg/mL 15-65 [facility] Comment on above: Performed at: [address] [id number] Director: Kwaku Park PhD, Phone: [phone] Phosphorus Level 3.6 mg/dL 2.6-4.7 [facility] Urine Random Creatinine 60.60 mg/dL 20.00-300. 00 [facility] Platelet mean volume Auto (B ld) [Entitic vol]on 06-24-2023 Platelet mean volume (Bld) [Entitic vol] 10.2 fL 9.5-13.5 [facility] Platelets Auto (Bld) [#/Vol] on 06-24-2023 Platelets (Bld) [#/Vol] 178 10 3/uL 150-450 [facility] RBC Auto (Bld) [#/Vol]on RBC (Bld) [#/Vol] 5.09 10 6/uL 4.70-6.10 [facility] Serum or plasma anion gap de terminationon 06-24-2023 Anion gap [Moles/Vol] 15.1 mmol[facility]L [facility] Urine protein/creatinine rat ioon 06-24-2023 Protein/Creatinine (U) [Ratio] 0.19 [facility] HbA1c HPLC (Bld) [Mass fract ion]on 06-18-2023 HbA1c (Bld) [Mass fraction] 6.1 % [facility] No Panel Informationon 06-17 Bedside Glucose 150 [facility] Cholesterol in LDL Calc [Mas s/Vol]on 06-13-2023 Cholesterol in LDL [Mass/Vol] 29.0 mg/dL [facility] Comment on above: <100 mg/dl [id number] 0-129 mg/dl NEAR OR ABOVE [id number] mg/dl BORDERLINE [id number] mg/dl HIGH>190 mg/dl VERY HIGH Cholesterol in VLDL Calc [Ma ss/Vol]on 06-13-2023 Cholesterol in VLDL [Mass/Vol] 24.8 mg/dL [facility] Laboratory - Chemistry and C hemistry - challengeon 06-13-2023 Cholesterol [Mass/Vol] 87 mg/dL <=200 [facility] Cholesterol in HDL [Mass/Vol] 34 mg/dL 40-60 [facility] Comment on above: > or =60 mg/dl - LOW CARDIOVASCULAR RISK<40 mg/dl - HIGH CARDIOVASCULAR RISK Triglyceride [Mass/Vol] 124 mg/dL <=150 [facility] Serum or plasma total choles terol/high density lipoprotein (HDL) cholesterol mass yulia 06-13-2023 Cholesterol.total/Cho lesterol in HDL [Mass ratio] 2.6 {ratio} [facility] Comment on above: 3.3 - 4.4 LOW RISK4. 4 - 7.1 AVERAGE RISK7.1 - 11.0 MODERATE RISK>11.0 HIGH RISK A1C HEMOGLOBINon 03-12-2023 HbA1c (Bld) [Mass fraction] 7.1 % [facility] Other Glucose - FINGER STICKon Glucose [Mass/Vol] 151 mg/dL [facility] Other HbA1c (Bld) [Mass fraction]o n 03-12-2023 A1C HEMOGLOBIN [facility] Other CT CHEST WO CONon 08-09-2022 CT [...] by: HAZEL SCHILLING Date: 2022-08-09 14:00 Normal [facility] A1C HEMOGLOBINon 06-26-2022 HbA1c (Bld) [Mass fraction] 7.4 % [facility] Other Glucose - FINGER STICKon Glucose [Mass/Vol] 267 mg/dL [facility] Other HbA1c (Bld) [Mass fraction]o n 06-26-2022 A1C HEMOGLOBIN [facility] Other PTH INTACTon 06-26-2022 PTH, Intact 37 pg/mL Normal 15-65 [facility] Comment on above: Performed By: #### C MP, CMADM #### [facility] [address] [place] [address] Dr. Mirza Sadler FERRITINon 06-25-2022 Ferritin [Mass/Vol] 269.0 ng/mL Normal 26.0-388.0 [facility] Comment on above: Performed By: #### B WELDING TESTER #### [facility] [address] [place] [address] Dr. Mirza Sadler HEMOGRAM AND PLATELon 2022 Hematocrit (Bld) [Volume fraction] 44.7 % Normal 42.0-54.0 [facility] Comment on above: Performed By: #### P T, PTT #### [facility] [address] [place] [address] Dr. Mirza Sadler Hemoglobin (Bld) [Mass/Vol] 15.1 g/dL Normal 14.0-18.0 [facility] Comment on above: Performed By: #### P T, PTT #### [facility] [address] [place] [address] Dr. Mirza Sadler MCH (RBC) [Entitic mass] 30.0 pg Normal 25.9-34.0 [facility] Comment on above: Performed By: #### P T, PTT #### [facility] [address] [place] [address] Dr. Mirza Sadler MCHC (RBC) [Mass/Vol] 33.8 g/dL Normal 29.9-35.2 [facility] Comment on above: Performed By: #### P T, PTT #### [facility] [address] [place] [address] Dr. Mirza Sadler MCV (RBC) [Entitic vol] 88.9 fL Normal 80.0-94.0 [facility] Comment on above: Performed By: #### P T, PTT #### [facility] [address] [address] [address] Mirza Sadler PLT 199 103/ul Normal 150-450 [facility] Comment on above: Performed By: #### P T, PTT #### [facility] [address] [address] [address] Mirza Sadler RBC 5.03 106/ul Normal 4.70-6.10 [facility] Comment on above: Performed By: #### P T, PTT #### [facility] [address] [address] [address] Mirza Sadler WBC 8.7 103/ul Normal 4.0-11.0 [facility] Comment on above: Performed By: #### P T, PTT #### [facility] [address] [place] [address] Dr. Mirza Sadler IRON AND TIBCon 06-25-2022 % SATURATION 28.6 % Normal [facility] Comment on above: Performed By: #### B WELDING TESTER #### [facility] [address] [place] [address] Dr. Mirza Sadler Iron [Mass/Vol] 82.0 ug/dL Normal 65.0-175.0 [facility] Comment on above: Performed By: #### B WELDING TESTER #### [facility] [address] [place] [address] Dr. Mirza Sadler TIBC DIRECT 287.0 ug/dL Normal 250.0-450. 0 [facility] Comment on above: Performed By: #### B WELDING TESTER #### [facility] [address] [place] [address] Dr. Mirza Sadler MAGNESIUMon 06-25-2022 Magnesium [Mass/Vol] 2.0 mg/dL Normal 1.8-2.4 [facility] Comment on above: Performed By: #### B WELDING TESTER #### [facility] [address] [place] [address] Dr. Mirza Sadler RENAL FUNCTION PANELon 06-25 Albumin [Mass/Vol] 4.2 g/dL Normal 3.4-5.0 [facility] Comment on above: Performed By: #### B WELDING TESTER #### [facility] [address] [address] [address] Mirza Sadler Calcium [Mass/Vol] 9.3 mg/dL Normal 8.5-10.1 [facility] Comment on above: Performed By: #### B WELDING TESTER #### [facility] [address] [address] [address] Mirza Sadler Chloride [Moles/Vol] 108 mmol/L Critically high 98-107 [facility] Comment on above: Performed By: #### B WELDING TESTER #### [facility] [address] [address] [address] Mirza Sadler CO2 [Moles/Vol] 29.5 mmol/L Normal 21.0-32.0 [facility] Comment on above: Performed By: #### B WELDING TESTER #### [facility] [address] [place] [address] Dr. Mirza Sadler Creatinine [Mass/Vol] 1.87 mg/dL Critically high 0.70-1.30 [facility] Comment on above: Performed By: #### B WELDING TESTER #### [facility] [address] [address] [address] Mirza Sadler EGFR-AF SAUDI ARABIAN 43 mL/min/1.73m2 Critically low >=60 [facility] Comment on above: Performed By: #### B WELDING TESTER #### [facility] [address] [place] [address] Dr. Mirza Sadler EGFR-NON AF SAUDI ARABIAN 36 mL/min/1.73m2 Critically low >=60 [facility] Comment on above: Performed By: #### B WELDING TESTER #### [facility] [address] [address] [address] Mirza Sadler Glucose [Mass/Vol] 181 mg/dL Critically high 74-106 [facility] Comment on above: Performed By: #### B WELDING TESTER #### [facility] [address] [address] [address] Mirza Sadler Phosphate [Mass/Vol] 4.8 mg/dL Critically high 2.6-4.7 [facility] Comment on above: Performed By: #### B WELDING TESTER #### [facility] [address] [place] [address] Dr. Mirza Sadler Potassium [Moles/Vol] 4.8 mmol/L Normal 3.5-5.1 [facility] Comment on above: Performed By: #### B WELDING TESTER #### [facility] [address] [place] [address] Dr. Mirza Sadler Sodium [Moles/Vol] 146 mmol/L Critically high 136-145 [facility] Comment on above: Performed By: #### B WELDING TESTER #### [facility] [address] [place] [address] Dr. Mirza Sadler Urea nitrogen [Mass/Vol] 40.0 mg/dL Critically high 7.0-18.0 [facility] Comment on above: Performed By: #### B WELDING TESTER #### [facility] [address] [place] [address] Dr. Miraz Sadler UA RANDOM W/MICROSCOPICon BACTERIA NONE SEEN Normal NONE SEEN [facility] Comment on above: Performed By: #### H STROPN #### [facility] [address] [place] [address] Dr. Mirza Sadler Bilirubin Ql (U) Negative Normal NEGATIVE [facility] Comment on above: Performed By: #### H STROPN #### [facility] [address] [place] [address] Dr. Mirza Sadler CAST NONE SEEN Normal NONE SEEN [facility] Comment on above: Performed By: #### H STROPN #### [facility] [address] [place] [address] Dr. Mirza Sadler Clarity (U) CLEAR Normal CLEAR [facility] Comment on above: Performed By: #### H STROPN #### [facility] [address] [place] [address] Dr. Mirza Sadler Color (U) LT. YELLOW Normal YELLOW [facility] Comment on above: Performed By: #### H STROPN #### [facility] [address] [place] [address] Dr. Mirza Sadler Crystals LM Nom (Urine sed) NONE SEEN Normal NONE SEEN [facility] Comment on above: Performed By: #### H STROPN #### [facility] [address] [address] [address] Mirza Sadler Epithelial cells LM Ql (Urine sed) FEW Abnormal NONE SEEN /RARE [facility] Comment on above: Performed By: #### H STROPN #### [facility] [address] [address] [address] Mirza Sadler Glucose Ql (U) 500 mg/dl Abnormal NEGATIVE [facility] Comment on above: Performed By: #### H STROPN #### [facility] [address] [address] [address] Mirza Sadler Hemoglobin Ql (U) Negative Normal NEGATIVE [facility] Comment on above: Performed By: #### H STROPN #### [facility] [address] [address] [address] Mirza Sadler Ketones Ql (U) Negative Normal NEGATIVE [facility] Comment on above: Performed By: #### H STROPN #### [facility] [address] [place] [address] Dr. Mirza Sadler LEUKOCYTES Negative Normal NEGATIVE [facility] Comment on above: Performed By: #### H STROPN #### [facility] [address] [address] [address] Mirza Sadler MUCOUS NONE SEEN Normal NONE SEEN [facility] Comment on above: Performed By: #### H STROPN #### [facility] [address] [address] [address] Mirza Sadler Nitrite Ql (U) Negative Normal NEGATIVE [facility] Comment on above: Performed By: #### H STROPN #### [facility] [address] [address] [address] Mirza Sadler pH (U) 5.5 [pH] Normal 5-9 [facility] Comment on above: Performed By: #### H STROPN #### [facility] [address] [address] [address] Miraz Sadler RBC 0-2 Normal 0-2 [facility] Comment on above: Performed By: #### H STROPN #### [facility] [address] [place] [address] Dr. Mirza Sadler SPEC GRAVITY 1.015 Normal 1.005-<=1. 025 [facility] Comment on above: Performed By: #### H EDDPN #### [facility] [address] [place] [address] Dr. Mirza Sadler UA PROTEIN Negative Normal NEGATIVE/ TRACE [facility] Comment on above: Performed By: #### H STROPN #### [facility] [address] [place] [address] Dr. Mirza Sadler Urobilinogen Qn (U) 0.2 {Luisito'U}/dL Normal 0.2 - 1. 0 [facility] Comment on above: Performed By: #### H EDDPN #### [facility] [address] [place] [address] Dr. Mirza Sadler WBC NONE SEEN Normal NONE SEEN [facility] Comment on above: Performed By: #### H EDDPN #### [facility] [address] [place] [address] Dr. Mirza Sadler URIC ACID SERUMon 06-25-2022 Urate [Mass/Vol] 6.1 mg/dL Normal 3.5-7.2 [facility] Comment on above: Performed By: #### B WELDING TESTER #### [facility] [address] [place] [address] Dr. Mirza Sadler URINE T PROTEIN CREAT RATIOo n 06-25-2022 Protein (U) [Mass/Vol] 9.7 mg/dL Normal <=12.0 [facility] Comment on above: Performed By: #### C TEGAN MARIN #### [facility] [address] [place] [address] Dr. Mirza Sadler UR PROT CREAT RAT 0.14 Normal [facility] Comment on above: Performed By: #### C TEGAN MARIN #### [facility] [address] [place] [address] Dr. Mirza Sadler URINE CREAT 71.45 mg/dL Normal 20.00-300. 00 [facility] Comment on above: Performed By: #### C TEGAN MARIN #### [facility] [address] [address] [address] Mirza Sadler VITAMIN D 25 OHon 06-25-2022 VIT D 25-OH 44.7 ng/mL Normal [facility] Comment on above: Performed By: #### E RUR #### [facility] [address] [address] [address] Mirza Sadler VIT D RANGES SEE BELOW Normal [facility] Comment on above: Result Comment: <20 ng/mL Vit D deficient 20 - <30 ng/mL Vit D insufficient 30 - 100 ng/mL Vit D sufficient >100 ng/mL Potential Toxicity Performed By: #### E RUR #### [facility] [address] [place] [address] Dr. Mirza Sadler LIPID PROFILEon 06-18-2022 CHOL-HDL RATIO NORM SEE BELOW Normal [facility] Comment on above: Result Comment: 3.3 - 4.4 LOW RISK 4.4 - 7.1 AVERAGE RISK 7.1 - 11.0 MODERATE RISK >11.0 HIGH RISK Performed By: #### H STROPN #### [facility] [address] [address] [address] Mirza Sadler Cholesterol [Mass/Vol] 136 mg/dL Normal <=200 [facility] Comment on above: Performed By: #### H STROPN #### [facility] [address] [address] [address] Mirza Sadler Cholesterol in HDL [Mass/Vol] 38 mg/dL Critically low 40-60 [facility] Comment on above: Performed By: #### H STROPN #### [facility] [address] [address] [address] Mirza Sadler Cholesterol in LDL [Mass/Vol] 69.6 mg/dL Normal [facility] Comment on above: Performed By: #### H STROPN #### [facility] [address] [address] [address] Mirza Sadler Cholesterol.total/Cho lesterol in HDL [Mass ratio] 3.6 {ratio} Normal [facility] Comment on above: Performed By: #### H STROPN #### [facility] [address] [place], [place] [address] Dr. Mirza Sadler HDL NORMAL > or = 60 mg/dl - LO W CARDIOVASCULAR RISK <40 mg/dl - HIGH CARDIOVASCULAR RISK Normal [facility] Comment on above: Performed By: #### H STROPN #### [facility] [address] [place], [place] [address] Dr. Mirza Sadler LDL CALC NORMAL SEE BELOW Normal [facility] Comment on above: Result Comment: <100 mg/dl OPTIMAL 100 - 129 mg/dl NEAR OR ABOVE OPTIMAL 130 - 159 mg/dl BORDERLINE HIGH 160 - 189 mg/dl HIGH >190 mg/dl VERY HIGH Performed By: #### H STROPN #### [facility] [address] [address] [address] Mirza Sadler Triglyceride [Mass/Vol] 142 mg/dL Normal <=150 [facility] Comment on above: Performed By: #### H STROPN #### [facility] [address] [address] [address] Mirza Sadler VLDL CALC 28.4 mg/dL Normal [facility] Comment on above: Performed By: #### H STROPN #### [facility] [address] [address] CHEST WO CONon [...] HIGINIO FLANAGAN Date: 2022-06-05 16:58 Normal [facility] CT CHEST WO [facility] [employer] Other PROF CHEM 8 (BAS METB)on Anion gap [Moles/Vol] 10.2 mmol/L Normal [facility] Comment on above: Performed By: #### B WELDING TESTER #### [facility] [address] [place] [address] Dr. Mirza Sadler Calcium [Mass/Vol] 8.9 mg/dL Normal 8.5-10.1 [facility] Comment on above: Performed By: #### B WELDING TESTER #### [facility] [address] [place] [address] Dr. Mirza Sadler Chloride [Moles/Vol] 101 mmol/L Normal 98-107 [facility] Comment on above: Performed By: #### B WELDING TESTER #### [facility] [address] [place] [address] Dr. Mirza Sadler CO2 [Moles/Vol] 31.2 mmol/L Normal 21.0-32.0 [facility] Comment on above: Performed By: #### B WELDING TESTER #### [facility] [address] [place] [address] Dr. Mirza Sadler Creatinine [Mass/Vol] 1.91 mg/dL Critically high 0.70-1.30 [facility] Comment on above: Performed By: #### B WELDING TESTER #### [facility] Laboratory [address] [place] [address] Dr. Mirza Sadler EGFR-AF SAUDI ARABIAN 42 mL/min/1.73m2 Critically low >=60 [facility] Comment on above: Performed By: #### B WELDING TESTER #### [facility] [address] [place] [address] Dr. Mirza Sadler EGFR-NON AF SAUDI ARABIAN 35 mL/min/1.73m2 Critically low >=60 [facility] Comment on above: Performed By: #### B WELDING TESTER #### [facility] [address] [address] [address] Mirza Sadler Glucose [Mass/Vol] 242 mg/dL Critically high 74-106 [facility] Comment on above: Performed By: #### B WELDING TESTER #### [facility] [address] [address] [address] Mirza Sadler Potassium [Moles/Vol] 4.4 mmol/L Normal 3.5-5.1 [facility] Comment on above: Performed By: #### B WELDING TESTER #### [facility] [address] [address] [address] Mirza Sadler Sodium [Moles/Vol] 138 mmol/L Normal 136-145 [facility] Comment on above: Performed By: #### B WELDING TESTER #### [facility] [address] [address] [address] Mirza Sadler Urea nitrogen [Mass/Vol] 33.0 mg/dL Critically high 7.0-18.0 [facility] Comment on above: Performed By: #### B WELDING TESTER #### [facility] [address] [address] [address] Mirza Sadler Urea nitrogen/Creatinine [Mass ratio] 17.3 mg/mg Normal [facility] Comment on above: Performed By: #### B WELDING TESTER #### [facility] [address] [address] [address] Mirza Sadler PROF CHEM 8 (BAS METB)on Anion gap [Moles/Vol] 10.7 mmol/L Normal [facility] Comment on above: Performed By: #### P T, PTT #### [facility] [address] [address] [address] Mirza Sadler Calcium [Mass/Vol] 8.9 mg/dL Normal 8.5-10.1 [facility] Comment on above: Performed By: #### P T, PTT #### [facility] [address] [address] [address] Mirza Sadler Chloride [Moles/Vol] 104 mmol/L Normal 98-107 [facility] Comment on above: Performed By: #### P T, PTT #### [facility] [address] [address] [address] Mirza Sadler CO2 [Moles/Vol] 29.4 mmol/L Normal 21.0-32.0 [facility] Comment on above: Performed By: #### P T, PTT #### [facility] [address] [address] [address] Mirza Sadler Creatinine [Mass/Vol] 1.75 mg/dL Critically high 0.70-1.30 [facility] Comment on above: Performed By: #### P T, PTT #### [facility] [address] [address] [address] Mirza Sadler EGFR-AF SAUDI ARABIAN 47 mL/min/1.73m2 Critically low >=60 [facility] Comment on above: Performed By: #### P T, PTT #### [facility] [address] [address] [address] Mirza Sadler EGFR-NON AF SAUDI ARABIAN 39 mL/min/1.73m2 Critically low >=60 [facility] Comment on above: Performed By: #### P T, PTT #### [facility] [address] [address] [address] Mirza Sadler Glucose [Mass/Vol] 191 mg/dL Critically high 74-106 [facility] Comment on above: Performed By: #### P T, PTT #### [facility] [address] [address] [address] Mirza Sadler Potassium [Moles/Vol] 4.1 mmol/L Normal 3.5-5.1 [facility] Comment on above: Performed By: #### P T, PTT #### [facility] [address] [address] [address] Mirza Sadler Sodium [Moles/Vol] 140 mmol/L Normal 136-145 [facility] Comment on above: Performed By: #### P T, PTT #### [facility] [address] [address] [address] Mirza Sadler Urea nitrogen [Mass/Vol] 31.0 mg/dL Critically high 7.0-18.0 [facility] Comment on above: Performed By: #### P T, PTT #### [facility] [address] [address] [address] Mirza Sadler Urea nitrogen/Creatinine [Mass ratio] 17.7 mg/mg Normal [facility] Comment on above: Performed By: #### P T, PTT #### [facility] [address] [address] [address] Mirza Sadler XR CHEST 2 Von [...] HIGINIO FLANAGAN Date: 2022-03-22 16:12 Normal [facility] A1C HEMOGLOBINon 03-20-2022 HbA1c (Bld) [Mass fraction] 6.7 % [facility] Other Glucose - FINGER STICKon Glucose [Mass/Vol] 193 mg/dL [facility] Other HbA1c (Bld) [Mass fraction]o n 03-20-2022 A1C HEMOGLOBIN [facility] Other BNPon 03-13-2022 Natriuretic peptide B (Bld) [Mass/Vol] 4825.0 pg/mL Critically high <=900.0 [facility] Comment on above: Performed By: #### E RUR #### [facility] [address] [place] [address] Dr. Mirza Sadler CBC AUTO DIFFon 03-13-2022 BASO # 0.0 103/ul Normal 0.0-0.1 [facility] Comment on above: Performed By: #### E RUR #### [facility] [address] [place] [address] Dr. Mirza Sadler Basophils/100 WBC (Bld) 0.6 % Normal 0.2-2.0 [facility] Comment on above: Performed By: #### E RUR #### [facility] [address] [place] [address] Dr. Mirza Sadler EO # 0.1 103/ul Normal 0.0-0.7 [facility] Comment on above: Performed By: #### E RUR #### [facility] [address] [place] [address] Dr. Mirza Sadler Eosinophils/100 WBC (Bld) 1.8 % Normal 0.9-7.0 [facility] Comment on above: Performed By: #### E RUR #### [facility] [address] [place] [address] Dr. Mirza Sadler Erythrocyte distribution width (RBC) [Ratio] 14.4 % Normal 11.0-15.0 [facility] Comment on above: Performed By: #### E RUR #### [facility] [address] [place] [address] Dr. Mirza Sadler Hematocrit (Bld) [Volume fraction] 36.1 % Critically low 42.0-54.0 [facility] Comment on above: Performed By: #### E RUR #### [facility] [address] [place] [address] Dr. Mirza Sadler Hemoglobin (Bld) [Mass/Vol] 11.9 g/dL Critically low 14.0-18.0 [facility] Comment on above: Performed By: #### E RUR #### [facility] [address] [place] [address] Dr. Mirza Sadler IG # 0.02 10e3/ul Normal 0.00-0.03 [facility] Comment on above: Performed By: #### E RUR #### [facility] [address] [place] [address] Dr. Mirza Sadler IG % 0.3 % Normal 0.0-0.5 [facility] Comment on above: Performed By: #### E RUR #### [facility] [address] [place] [address] Dr. Mirza Sadler LYMPH # 1.5 103/ul Normal 1.2-3.8 [facility] Comment on above: Performed By: #### E RUR #### [facility] [address] [place] [address] Dr. Mirza Sadler Lymphocytes/100 WBC (Bld) 22.6 % Normal 20.5-60.0 [facility] Comment on above: Performed By: #### E RUR #### [facility] [address] [place] [address] Dr. Mirza Sadler MANUAL DIFF REQ NO Normal [facility] Comment on above: Performed By: #### E RUR #### [facility] [address] [place] [address] Dr. Mirza Sadler MCH (RBC) [Entitic mass] 29.0 pg Normal 25.9-34.0 [facility] Comment on above: Performed By: #### E RUR #### [facility] [address] [place] [address] Dr. Mirza Sadler MCHC (RBC) [Mass/Vol] 33.0 g/dL Normal 29.9-35.2 [facility] Comment on above: Performed By: #### E RUR #### [facility] [address] [place] [address] Dr. Mirza Sadler MCV (RBC) [Entitic vol] 88.0 fL Normal 80.0-94.0 [facility] Comment on above: Performed By: #### E RUR #### [facility] [address] [place] [address] Dr. Mirza Sadler MONO # 0.7 103/ul Normal 0.3-0.8 [facility] Comment on above: Performed By: #### E RUR #### [facility] [address] [address] [address] Mirza Sadler Monocytes/100 WBC (Bld) 10.2 % Normal 1.7-12.0 [facility] Comment on above: Performed By: #### E RUR #### [facility] [address] [address] [address] Mirza Sadler NEUT # 4.3 103/ul Normal 1.4-6.5 [facility] Comment on above: Performed By: #### E RUR #### [facility] [address] [place] [address] Dr. Mirza Sadler Neutrophils/100 WBC (Bld) 64.5 % Normal 43.0-75.0 [facility] Comment on above: Performed By: #### E RUR #### [facility] [address] [place] [address] Dr. Mirza Sadler Platelet mean volume (Bld) [Entitic vol] 9.7 fL Normal 9.5-13.5 [facility] Comment on above: Performed By: #### E RUR #### [facility] [address] [place] [address] Dr. Mirza Sadler PLT 149 103/ul Critically low 150-450 [facility] Comment on above: Performed By: #### E RUR #### [facility] [address] [place] [address] Dr. Mirza Sadler RBC 4.10 106/ul Critically low 4.70-6.10 [facility] Comment on above: Performed By: #### E RUR #### [facility] [address] [place] [address] Dr. Mirza Sadler WBC 6.6 103/ul Normal 4.0-11.0 [facility] Comment on above: Performed By: #### E RUR #### [facility] [address] [place] [address] Dr. Mirza Sadler PROF CHEM 8 (BAS METB)on Anion gap [Moles/Vol] 14.6 mmol/L Normal [facility] Comment on above: Performed By: #### E RUR #### [facility] [address] [address] [address] Mirza Sadler Calcium [Mass/Vol] 8.5 mg/dL Normal 8.5-10.1 [facility] Comment on above: Performed By: #### E RUR #### [facility] [address] [address] [address] Mirza Sadler Chloride [Moles/Vol] 104 mmol/L Normal 98-107 [facility] Comment on above: Performed By: #### E RUR #### [facility] [address] [address] [address] Mirza Sadler CO2 [Moles/Vol] 22.7 mmol/L Normal 21.0-32.0 [facility] Comment on above: Performed By: #### E RUR #### [facility] [address] [address] [address] Mirza Sadler Creatinine [Mass/Vol] 1.78 mg/dL Critically high 0.70-1.30 [facility] Comment on above: Performed By: #### E RUR #### [facility] [address] [address] [address] Mirza Sadler EGFR-AF SAUDI ARABIAN 46 mL/min/1.73m2 Critically low >=60 [facility] Comment on above: Performed By: #### E RUR #### [facility] [address] [address] [address] Mirza Sadler EGFR-NON AF SAUDI ARABIAN 38 mL/min/1.73m2 Critically low >=60 [facility] Comment on above: Performed By: #### E RUR #### [facility] [address] [address] [address] Mirza Sadler Glucose [Mass/Vol] 121 mg/dL Critically high 74-106 [facility] Comment on above: Performed By: #### E RUR #### [facility] [address] [address] [address] Mirza Sadler Potassium [Moles/Vol] 3.3 mmol/L Critically low 3.5-5.1 [facility] Comment on above: Performed By: #### E RUR #### [facility] [address] [place] [address] Dr. Mirza Sadler Sodium [Moles/Vol] 138 mmol/L Normal 136-145 [facility] Comment on above: Performed By: #### E RUR #### [facility] [address] [place] [address] Dr. Mirza Sadler Urea nitrogen [Mass/Vol] 30.0 mg/dL Critically high 7.0-18.0 [facility] Comment on above: Performed By: #### E RUR #### [facility] [address] [place] [address] Dr. Mirza Sadler Urea nitrogen/Creatinine [Mass ratio] 16.9 mg/mg Normal [facility] Comment on above: Performed By: #### E RUR #### [facility] [address] [place] [address] Dr. Mirza Sadler BNPon 03-12-2022 Natriuretic peptide B (Bld) [Mass/Vol] 7452.0 pg/mL Critically high <=900.0 [facility] Comment on above: Performed By: #### C TANIA CMADM #### [facility] [address] [place] [address] Dr. Mirza Sadler CBC AUTO DIFFon 03-12-2022 BASO # 0.0 103/ul Normal 0.0-0.1 [facility] Comment on above: Performed By: #### P T, PTT #### [facility] [address] [place] [address] Dr. Mirza Sadler Basophils/100 WBC (Bld) 0.4 % Normal 0.2-2.0 [facility] Comment on above: Performed By: #### P T, PTT #### [facility] [address] [place] [address] Dr. Mirza Sadler EO # 0.0 103/ul Normal 0.0-0.7 [facility] Comment on above: Performed By: #### P T, PTT #### [facility] [address] [place] [address] Dr. Mirza Sadler Eosinophils/100 WBC (Bld) 0.2 % Critically low 0.9-7.0 [facility] Comment on above: Performed By: #### P T, PTT #### [facility] [address] [place] [address] Dr. Mirza Sadler Erythrocyte distribution width (RBC) [Ratio] 14.6 % Normal 11.0-15.0 [facility] Comment on above: Performed By: #### P T, PTT #### [facility] [address] [place] [address] Dr. Mirza Sadler Hematocrit (Bld) [Volume fraction] 37.8 % Critically low 42.0-54.0 [facility] Comment on above: Performed By: #### P T, PTT #### [facility] [address] [place] [address] Dr. Mirza Sadler Hemoglobin (Bld) [Mass/Vol] 12.2 g/dL Critically low 14.0-18.0 [facility] Comment on above: Performed By: #### P T, PTT #### [facility] [address] [place] [address] Dr. Mirza Sadler IG # 0.03 10e3/ul Normal 0.00-0.03 [facility] Comment on above: Performed By: #### P T, PTT #### [facility] [address] [place] [address] Dr. Mirza Sadler IG % 0.3 % Normal 0.0-0.5 [facility] Comment on above: Performed By: #### P T, PTT #### [facility] [address] [place] [address] Dr. Mirza Sadler LYMPH # 1.2 103/ul Normal 1.2-3.8 [facility] Comment on above: Performed By: #### P T, PTT #### [facility] [address] [place] [address] Dr. Mirza Sadler Lymphocytes/100 WBC (Bld) 11.5 % Critically low 20.5-60.0 [facility] Comment on above: Performed By: #### P T, PTT #### [facility] [address] [place] [address] Dr. Mirza Sadler MANUAL DIFF REQ NO Normal [facility] Comment on above: Performed By: #### P T, PTT #### [facility] [address] [place] [address] Dr. Mirza Sadler MCH (RBC) [Entitic mass] 29.0 pg Normal 25.9-34.0 [facility] Comment on above: Performed By: #### P T, PTT #### [facility] [address] [place] [address] Dr. Mirza Sadler MCHC (RBC) [Mass/Vol] 32.3 g/dL Normal 29.9-35.2 [facility] Comment on above: Performed By: #### P T, PTT #### [facility] [address] [place] [address] Dr. Mirza Sadler MCV (RBC) [Entitic vol] 89.8 fL Normal 80.0-94.0 [facility] Comment on above: Performed By: #### P T, PTT #### [facility] [address] [place] [address] Dr. Mirza Sadler MONO # 0.7 103/ul Normal 0.3-0.8 [facility] Comment on above: Performed By: #### P T, PTT #### [facility] [address] [place] [address] Dr. Mirza Sadler Monocytes/100 WBC (Bld) 6.8 % Normal 1.7-12.0 [facility] Comment on above: Performed By: #### P T, PTT #### [facility] [address] [place] [address] Dr. Mirza Sadler NEUT # 8.5 103/ul Critically high 1.4-6.5 [facility] Comment on above: Performed By: #### P T, PTT #### [facility] [address] [place] [address] Dr. Mirza Sadler Neutrophils/100 WBC (Bld) 80.8 % Critically high 43.0-75.0 [facility] Comment on above: Performed By: #### P T, PTT #### [facility] [address], [place] [address] Dr. Mirza Sadler Platelet mean volume (Bld) [Entitic vol] 9.8 fL Normal 9.5-13.5 [facility] Comment on above: Performed By: #### P T, PTT #### [facility] [address] [place], [place] [address] Dr. Mirza Sadler PLT 165 103/ul Normal 150-450 [facility] Comment on above: Performed By: #### P T, PTT #### [facility] [address], [place] [address] Dr. Mirza Sadler RBC 4.21 106/ul Critically low 4.70-6.10 [facility] Comment on above: Performed By: #### P T, PTT #### [facility] [address], [place] [address] Dr[address] Mirza Sadler WBC 10.5 103/ul Normal 4.0-11.0 [facility] Comment on above: Performed By: #### P T, PTT #### [facility] [address], [place] [address] Dr. Mirza Sadler ECHOCARDIO M/2D COMPLETEon 1 05-13-2021 ECHOCARDIO M/2D COMPLETE Patient: LANI LIZAMA Exam Date: 03/12/2022 : 1950 Gender:M Ordering : DR OBDULIO ALVA . Admission #: [id number] Family : DR HARLEY CRESPO D.O. Order #: [id number] CLICK HERE TO VIEW EXAM ECHOCARDIOGRAM REPORT PROCEDURE: CARDIO PULMONARY ECHOCARDIO M/2D COMP INDICATIONS: Elevated TROP and BNPChest pain, recent MT, CHF, CBAG x 5, PTCA x 7 [...] M.D. on 03/13/2022 at 17:42 Normal [facility] PROF CHEM 8 (BAS METB)on Anion gap [Moles/Vol] 17.8 mmol/L Normal [facility] Comment on above: Performed By: #### C MP, CMADM #### [facility] [address] [address] [address] Mirza Sadler Calcium [Mass/Vol] 8.6 mg/dL Normal 8.5-10.1 [facility] Comment on above: Performed By: #### C MP, CMADM #### [facility] [address] [address] [address] Mirza Sadler Chloride [Moles/Vol] 103 mmol/L Normal 98-107 [facility] Comment on above: Performed By: #### C MP, CMADM #### [facility] [address] [place] [address] Dr. Mirza Sadler CO2 [Moles/Vol] 22.3 mmol/L Normal 21.0-32.0 [facility] Comment on above: Performed By: #### C MP, CMADM #### [facility] [address] [address] [address] Mirza Sadler Creatinine [Mass/Vol] 1.81 mg/dL Critically high 0.70-1.30 [facility] Comment on above: Performed By: #### C MP, CMADM #### [facility] [address] [address] [address] Mirza Sadler EGFR-AF SAUDI ARABIAN 45 mL/min/1.73m2 Critically low >=60 [facility] Comment on above: Performed By: #### C MP, CMADM #### [facility] [address] [address] [address] Mirza Sadler EGFR-NON AF SAUDI ARABIAN 37 mL/min/1.73m2 Critically low >=60 [facility] Comment on above: Performed By: #### C MP, CMADM #### [facility] [address] [address] [address] Mirza Sadler Glucose [Mass/Vol] 161 mg/dL Critically high 74-106 [facility] Comment on above: Performed By: #### C MP, CMADM #### [facility] [address] [place] [address] Dr. Mirza Sadler Potassium [Moles/Vol] 4.1 mmol/L Normal 3.5-5.1 [facility] Comment on above: Performed By: #### C MP, CMADM #### [facility] [address] [place] [address] Dr. Mirza Sadler Sodium [Moles/Vol] 139 mmol/L Normal 136-145 [facility] Comment on above: Performed By: #### C MP, CMADM #### [facility] [address] [place] [address] Dr. Mirza Sadler Urea nitrogen [Mass/Vol] 28.0 mg/dL Critically high 7.0-18.0 [facility] Comment on above: Performed By: #### C MP, CMADM #### [facility] [address] [place] [address] Dr. Mirza Sadler Urea nitrogen/Creatinine [Mass ratio] 15.5 mg/mg Normal [facility] Comment on above: Performed By: #### C MP, CMADM #### [facility] [address] [place] [address] Dr. Mirza Sadler TROPONIN, HIGH SENSITIVITYon 03-12-2022 HSTROP 23526.5 pg/mL Critically high 4.0-76.1 [facility] Comment on above: Result Comment: CUT- OFF POINTS HAVE BEEN ESTABLISHED BASED ON THE FOURTH UNIVERSAL DEFINITIONS OF MYOCARDIAL INFARCTION. THE UPPER REFERENCE LIMIT (URL) OF TROPONIN, DEFINED THE 99TH PERCENTILE OF cTnI DISTRIBUTION IN A REFERENCE POPULATION, HAS BEEN CONFIRMED THE DECISION THRESHOLD FOR MT DIAGNOSIS. Performed By: #### C MP, CMADM #### [facility] [address] [place] [address] Dr. Mirza Sadler BNPon 03-11-2022 Natriuretic peptide B (Bld) [Mass/Vol] 1378.0 pg/mL Critically high <=900.0 [facility] Comment on above: Performed By: #### P T, PTT #### [facility] [address] [place] [address] Dr. Mirza Sadler CARDIAC PARUL 3-6on 2 CK [Catalytic activity/Vol] 139 U/L Normal 39-308 [facility] Comment on above: Performed By: #### E RUR #### [facility] [address] [place] [address] Dr. Mirza Sadler CK.MB [Mass/Vol] 7.50 ng/mL Critically high <=3.60 [facility] Comment on above: Performed By: #### E RUR #### [facility] [address] [place] [address] Dr. Mirza Sadler HSTROP 1419.3 pg/mL Critically high 4.0-76.1 [facility] Comment on above: Result Comment: CUT- OFF POINTS HAVE BEEN ESTABLISHED BASED ON THE FOURTH UNIVERSAL DEFINITIONS OF MYOCARDIAL INFARCTION. THE UPPER REFERENCE LIMIT (URL) OF TROPONIN, DEFINED THE 99TH PERCENTILE OF cTnI DISTRIBUTION IN A REFERENCE POPULATION, HAS BEEN CONFIRMED THE DECISION THRESHOLD FOR MT DIAGNOSIS. Performed By: #### E RUR #### [facility] [address] [place] [address] Dr. Mirza Sadler CBC AUTO DIFFon 03-11-2022 BASO # 0.1 103/ul Normal 0.0-0.1 [facility] Comment on above: Performed By: #### E RUR #### [facility] [address] [place] [address] Dr. Mirza Sadler Basophils/100 WBC (Bld) 0.5 % Normal 0.2-2.0 [facility] Comment on above: Performed By: #### E RUR #### [facility] [address] [place] [address] Dr. Mirza Sadler EO # 0.2 103/ul Normal 0.0-0.7 [facility] Comment on above: Performed By: #### E RUR #### [facility] [address] [place] [address] Dr. Mirza Sadler Eosinophils/100 WBC (Bld) 1.3 % Normal 0.9-7.0 [facility] Comment on above: Performed By: #### E RUR #### [facility] [address] [place] [address] Dr. Mirza Sadler Erythrocyte distribution width (RBC) [Ratio] 14.6 % Normal 11.0-15.0 [facility] Comment on above: Performed By: #### E RUR #### [facility] [address] [place] [address] Dr. Mirza Sadler Hematocrit (Bld) [Volume fraction] 43.1 % Normal 42.0-54.0 [facility] Comment on above: Performed By: #### E RUR #### [facility] [address] [place] [address] Dr. Mirza Sadler Hemoglobin (Bld) [Mass/Vol] 14.2 g/dL Normal 14.0-18.0 [facility] Comment on above: Performed By: #### E RUR #### [facility] [address] [place] [address] Dr. Mirza Sadler IG # 0.07 10e3/ul Critically high 0.00-0.03 [facility] Comment on above: Performed By: #### E RUR #### [facility] [address] [place] [address] Dr. Mirza Sadler IG % 0.5 % Normal 0.0-0.5 [facility] Comment on above: Performed By: #### E RUR #### [facility] [address] [place] [address] Dr. Mirza Sadler LYMPH # 1.3 103/ul Normal 1.2-3.8 [facility] Comment on above: Performed By: #### E RUR #### [facility] [address] [place] [address] Dr. Mirza Sadler Lymphocytes/100 WBC (Bld) 8.6 % Critically low 20.5-60.0 [facility] Comment on above: Performed By: #### E RUR #### [facility] [address] [place] [address] Dr. Mirza Sadler MANUAL DIFF REQ NO Normal [facility] Comment on above: Performed By: #### E RUR #### [facility] [address] [place] [address] Dr. Mirza Sadler MCH (RBC) [Entitic mass] 29.3 pg Normal 25.9-34.0 [facility] Comment on above: Performed By: #### E RUR #### [facility] [address] [place] [address] Dr. Mirza Sadler MCHC (RBC) [Mass/Vol] 32.9 g/dL Normal 29.9-35.2 [facility] Comment on above: Performed By: #### E RUR #### [facility] [address] [place] [address] Dr. Mirza Sadler MCV (RBC) [Entitic vol] 88.9 fL Normal 80.0-94.0 [facility] Comment on above: Performed By: #### E RUR #### [facility] [address] [place] [address] Dr. Mirza Sadler MONO # 0.7 103/ul Normal 0.3-0.8 [facility] Comment on above: Performed By: #### E RUR #### [facility] [address] [place] [address] Dr. Mirza Sadler Monocytes/100 WBC (Bld) 4.3 % Normal 1.7-12.0 [facility] Comment on above: Performed By: #### E RUR #### [facility] [address] [place] [address] Dr. Mirza Sadler NEUT # 12.8 103/ul Critically high 1.4-6.5 [facility] Comment on above: Performed By: #### E RUR #### [facility] [address] [place] [address] Dr. Mirza Sadler Neutrophils/100 WBC (Bld) 84.8 % Critically high 43.0-75.0 [facility] Comment on above: Performed By: #### E RUR #### [facility] [address] [place] [address] Dr. Mirza Sadler Platelet mean volume (Bld) [Entitic vol] 9.9 fL Normal 9.5-13.5 [facility] Comment on above: Performed By: #### E RUR #### [facility] [address] [address] [address] Mirza Sadler PLT 201 103/ul Normal 150-450 [facility] Comment on above: Performed By: #### E RUR #### [facility] [address] [place] [address] Dr. Mirza Sadler RBC 4.85 106/ul Normal 4.70-6.10 [facility] Comment on above: Performed By: #### E RUR #### [facility] [address] [address] [address] Mirza Sadler WBC 15.0 103/ul Critically high 4.0-11.0 [facility] Comment on above: Performed By: #### E RUR #### [facility] [address] [place] [address] Dr. Mirza Sadler CULTURE BLOODon 03-11-2022 Microscopic examination of blood, culture Culture Observations: NO GROWTH AT 5 DAYS. Normal [facility] Comment on above: Performed By: #### H STROPN #### [facility] [address] [place] [address] Dr. Mirza Sadler Microscopic examination of blood, culture Culture Observations: NO GROWTH AT 5 DAYS. Normal [facility] Comment on above: Performed By: #### H STROPN #### [facility] [address] [place] [address] Dr. Mirza Sadler [facility] SARS-CoV-2 (COVID-19) RNA RAMO+probe Ql (Unsp spec) Not detected Normal NOT DETECTED [facility] Comment on above: Result Comment: When [...] for this test is supported by the [employer] Inspector of Health and Human Service's declaration that [...] used). Performed By: #### H STROPN #### [facility] [address] [place] [address] Dr. Mirza Sadler ER URINE PROFILEon 2 Bilirubin Ql (U) Negative Normal NEGATIVE [facility] Comment on above: Performed By: #### E RUR #### [facility] [address] [place] [address] Dr. Mirza Sadler Clarity (U) CLEAR Normal CLEAR [facility] Comment on above: Performed By: #### E RUR #### [facility] [address] [place] [address] Dr. Mirza Sadler Color (U) LT. YELLOW Normal YELLOW [facility] Comment on above: Performed By: #### E RUR #### [facility] [address] [place] [address] Dr. Mirza Sadler ERUAHD A micrscopic examina tion will be performed if indicated. Normal [facility] Comment on above: Performed By: #### E RUR #### [facility] [address] [place] [address] Dr. Mirza Sadler Glucose Ql (U) >1000 Abnormal NEGATIVE [facility] Comment on above: Performed By: #### E RUR #### [facility] [address] [place] [address] Dr. Mirza Sadler Hemoglobin Ql (U) Negative Normal NEGATIVE [facility] Comment on above: Performed By: #### E RUR #### [facility] [address] [place] [address] Dr. Mirza Sadler Ketones Ql (U) 15 mg/dl Abnormal NEGATIVE [facility] Comment on above: Performed By: #### E RUR #### [facility] [address] [place] [address] Dr. Mirza Sadler LEUKOCYTES Negative Normal NEGATIVE [facility] Comment on above: Performed By: #### E RUR #### [facility] [address] [place] [address] Dr. Mirza Sadler Nitrite Ql (U) Negative Normal NEGATIVE [facility] Comment on above: Performed By: #### E RUR #### [facility] [address] [place] [address] Dr. Mirza Sadler pH (U) 5.0 [pH] Normal 5-9 [facility] Comment on above: Performed By: #### E RUR #### [facility] [address] [place] [address] Dr. Mirza Sadler SPEC GRAVITY 1.020 Normal 1.005-<=1. 025 [facility] Comment on above: Performed By: #### E RUR #### [facility] [address] [place] [address] Dr. Mirza Sadler UA PROTEIN TRACE Normal NEGATIVE/ TRACE [facility] Comment on above: Performed By: #### E RUR #### [facility] [address] [place] [address] Dr. Mirza Sadler UR MICRO IND NOT INDICATED Normal [facility] Comment on above: Performed By: #### E RUR #### [facility] [address] [place] [address] Dr. Mirza Sadler Urobilinogen Qn (U) 0.2 {Luisito'U}/dL Normal 0.2 - 1. 0 [facility] Comment on above: Performed By: #### E RUR #### [facility] [address] [place] [address] Dr. Mirza Sadler POINT OF CARE GLUCOSEon 03-01 Glucose [Mass/Vol] 161 mg/dL Critically high 74-106 [facility] Comment on above: Performed By: #### P T, PTT #### [facility] [address] [place] [address] Dr. Mirza Sadler PROF 14(COMP METB)on 03-11- 022 Albumin [Mass/Vol] 4.3 g/dL Normal 3.4-5.0 [facility] Comment on above: Performed By: #### P T, PTT #### [facility] [address] [address] [address] Mirza Sadler Albumin/Globulin [Mass ratio] 1.1 {ratio} Normal [facility] Comment on above: Performed By: #### P T, PTT #### [facility] [address] [address] [address] Mirza Sadler ALP [Catalytic activity/Vol] 156 U/L Critically high 46-116 [facility] Comment on above: Performed By: #### P T, PTT #### [facility] [address] [address] [address] Mirza Sadler ALT [Catalytic activity/Vol] 24 U/L Normal 16-63 [facility] Comment on above: Performed By: #### P T, PTT #### [facility] [address] [address] [address] Mirza Sadler Anion gap [Moles/Vol] 16.7 mmol/L Normal [facility] Comment on above: Performed By: #### P T, PTT #### [facility] [address] [address] [address] Mirza Sadler AST [Catalytic activity/Vol] 21 U/L Normal 15-37 [facility] Comment on above: Performed By: #### P T, PTT #### [facility] [address] [address] [address] Mirza Sadler Bilirubin [Mass/Vol] 1.1 mg/dL Critically high 0.2-1.0 [facility] Comment on above: Performed By: #### P T, PTT #### [facility] [address] [address] [address] Mirza Sadler Calcium [Mass/Vol] 8.8 mg/dL Normal 8.5-10.1 [facility] Comment on above: Performed By: #### P T, PTT #### [facility] [address] [address] [address] Mirza Sadler Chloride [Moles/Vol] 105 mmol/L Normal 98-107 [facility] Comment on above: Performed By: #### P T, PTT #### [facility] [address] [address] [address] Mirza Sadler CO2 [Moles/Vol] 25.0 mmol/L Normal 21.0-32.0 [facility] Comment on above: Performed By: #### P T, PTT #### [facility] [address] [place] [address] Dr. Mirza Sadler Creatinine [Mass/Vol] 1.57 mg/dL Critically high 0.70-1.30 [facility] Comment on above: Performed By: #### P T, PTT #### [facility] [address] [place] [address] Dr. Mirza Sadler EGFR-AF SAUDI ARABIAN 53 mL/min/1.73m2 Critically low >=60 [facility] Comment on above: Performed By: #### P T, PTT #### [facility] [address] [place] [address] Dr. Mirza Sadler EGFR-NON AF SAUDI ARABIAN 44 mL/min/1.73m2 Critically low >=60 [facility] Comment on above: Performed By: #### P T, PTT #### [facility] [address] [place] [address] Dr. Mirza Sadler Globulin (S) [Mass/Vol] 3.9 g/dL Normal [facility] Comment on above: Performed By: #### P T, PTT #### [facility] [address] [place] [address] Dr. Mirza Sadler Glucose [Mass/Vol] 188 mg/dL Critically high 74-106 [facility] Comment on above: Performed By: #### P T, PTT #### [facility] [address] [place] [address] Dr. Mirza Sadler Potassium [Moles/Vol] 3.7 mmol/L Normal 3.5-5.1 [facility] Comment on above: Performed By: #### P T, PTT #### [facility] [address] [place] [address] Dr. Mirza Sadler Protein [Mass/Vol] 8.2 g/dL Normal 6.4-8.2 [facility] Comment on above: Performed By: #### P T, PTT #### [facility] [address] [place] [address] Dr. Mirza Sadler Sodium [Moles/Vol] 143 mmol/L Normal 136-145 [facility] Comment on above: Performed By: #### P T, PTT #### [facility] [address] [place] [address] Dr. Mirza Sadler Urea nitrogen [Mass/Vol] 20.0 mg/dL Critically high 7.0-18.0 [facility] Comment on above: Performed By: #### P T, PTT #### [facility] [address] [place] [address] Dr. Mirza Sadler Urea nitrogen/Creatinine [Mass ratio] 12.7 mg/mg Normal [facility] Comment on above: Performed By: #### P T, PTT #### [facility] [address] [place] [address] Dr. Mirza Sadler RESPIRATORY PANEL PLUSon Adenovirus Not detected Normal NOT DETECTED [facility] Comment on above: Performed By: #### P T, PTT #### [facility] [address] [place] [address] Dr. Mirza Ball Parapertusis Not detected Normal NOT DETECTED [facility] Comment on above: Performed By: #### P T, PTT #### [facility] [address] [place] [address] Dr. Mirza Ball Pertussis Not detected Normal NOT DETECTED [facility] Comment on above: Performed By: #### P T, PTT #### [facility] [address] [place] [address] Dr. Mirza Sadler Chlamydia Pneumoniae Not detected Normal NOT DETECTED [facility] Comment on above: Performed By: #### P T, PTT #### [facility] [address] [place] [address] Dr. Mirza Sadler Coronavirus 229E Not detected Normal NOT DETECTED [facility] Comment on above: Performed By: #### P T, PTT #### [facility] [address] [place] [address] Dr. Mirza Sadler Coronavirus HKU1 Not detected Normal NOT DETECTED [facility] Comment on above: Performed By: #### P T, PTT #### [facility] [address] [place] [address] Dr. Mirza Sadler Coronavirus NL63 Not detected Normal NOT DETECTED [facility] Comment on above: Performed By: #### P T, PTT #### [facility] [address] [place] [address] Dr. Mirza Sadler Coronavirus OC43 Not detected Normal NOT DETECTED [facility] Comment on above: Performed By: #### P T, PTT #### [facility] [address] [place] [address] Dr. Mirza Sadler Influenza A H1 2009 Not detected Normal NOT DETECTED [facility] Comment on above: Performed By: #### P T, PTT #### [facility] [address] [place] [address] Dr. Mirza Sadler Influenza A H3 Not detected Normal NOT DETECTED [facility] Comment on above: Performed By: #### P T, PTT #### [facility] [address] [place] [address] Dr. Mirza Sadler Influenza B Not detected Normal NOT DETECTED [facility] Comment on above: Performed By: #### P T, PTT #### [facility] [address] [place] [address] Dr. Mirza Sadler Metapneumovirus Not detected Normal NOT DETECTED [facility] Comment on above: Performed By: #### P T, PTT #### [facility] [address] [place] [address] Dr. Mirza Sadler Mycoplas. Pneumoniae Not detected Normal NOT DETECTED [facility] Comment on above: Performed By: #### P T, PTT #### [facility] [address] [place] [address] Dr. Mirza Sadler Parainfluenza 1 Not detected Normal NOT DETECTED [facility] Comment on above: Performed By: #### P T, PTT #### [facility] [address] [place] [address] Dr. Mirza Sadler Parainfluenza 2 Not detected Normal NOT DETECTED [facility] Comment on above: Performed By: #### P T, PTT #### [facility] [address] [place] [address] Dr. Mirza Sadler Parainfluenza 3 Not detected Normal NOT DETECTED [facility] Comment on above: Performed By: #### P T, PTT #### [facility] [address] [place] [address] Dr. Mirza Sadler Parainfluenza 4 Not detected Normal NOT DETECTED [facility] Comment on above: Performed By: #### P T, PTT #### [facility] [address] [place] [address] Dr. Mirza Sadler Rhino/Enterovirus Not detected Normal NOT DETECTED [facility] Comment on above: Performed By: #### P T, PTT #### [facility] [address] [place] [address] Dr. Mirza Sadler RP2 Header 1 RESPIRATORY PANEL: VIRUSES Normal [facility] Comment on above: Performed By: #### P T, PTT #### [facility] [address] [place] [address] Dr. Mirza Sadler RP2 Header 2 RESPIRATORY PANEL: BACTERIA Normal [facility] Comment on above: Performed By: #### P T, PTT #### [facility] [address] [place] [address] Dr. Mirza Sadler RSV Not detected Normal NOT DETECTED [facility] Comment on above: Performed By: #### P T, PTT #### [facility] [address] [place] [address] Dr. Mirza Sadler SARS-CoV-2 (COVID-19) RNA RAMO+probe Ql (Unsp spec) Not detected Normal NOT DETECTED [facility] Comment on above: Performed By: #### P T, PTT #### [facility] [address] [place] [address] Dr. Mirza Sadler TROPONIN, HIGH SENSITIVITYon 03-11-2022 HSTROP 43703.8 pg/mL Critically high 4.0-76.1 [facility] Comment on above: Result Comment: CUT- OFF POINTS HAVE BEEN ESTABLISHED BASED ON THE FOURTH UNIVERSAL DEFINITIONS OF MYOCARDIAL INFARCTION. THE UPPER REFERENCE LIMIT (URL) OF TROPONIN, DEFINED THE 99TH PERCENTILE OF cTnI DISTRIBUTION IN A REFERENCE POPULATION, HAS BEEN CONFIRMED THE DECISION THRESHOLD FOR MT DIAGNOSIS. Performed By: #### C MP, CMADM #### [facility] [address] [place], [place] [address] Dr. Mirza Sadelr HSTROP 41.0 pg/mL Normal 4.0-76.1 [facility] Comment on above: Result Comment: CUT- OFF POINTS HAVE BEEN ESTABLISHED BASED ON THE FOURTH UNIVERSAL DEFINITIONS OF MYOCARDIAL INFARCTION. THE UPPER REFERENCE LIMIT (URL) OF TROPONIN, DEFINED THE 99TH PERCENTILE OF cTnI DISTRIBUTION IN A REFERENCE POPULATION, HAS BEEN CONFIRMED THE DECISION THRESHOLD FOR MT DIAGNOSIS. Performed By: #### P T, PTT #### [facility] [id number] Mirza Sadler XR CHEST 1 Von [...] Kayden ACEVES Date: 2022-03-11 05:42 Normal [facility] NM MUGAon 03-09-2022 NM MUGA EXAMINATION: [...] SHANNON LANDIS Date: 2022-03-09 12:26 Normal [facility] CT CHEST WO CONon 03-02-2022 CT [...] HIGINIO FLANAGAN Date: 2022-03-02 08:52 Normal [facility] Creatinine and Glomerular fi ltration rate.predicted panel (S/P/Bld)Ordered By: Gagan Shahid on 01-17-2022 Creatinine [Mass/Vol] 1.53 mg/dL 0.64-1.27 [facility] Estimated glomerular filtrat ion rate (GFR) non- AmericanOrdered By: Gagan Shahid on 01-17-2022 GFR/1.73 sq M.predicted among non-blacks MDRD (S/P/Bld) [Vol rate/Area] 45 mL/Min [facility] Glucose Glucometer (BldC) [M ass/Vol]Ordered By: Gagan Shahid on 01-17-2022 Glucose [Mass/Vol] 178 mg/dL [facility] Comment on above: Random Glucose Refer ence Range is dependent on time and content of last meal. Glucose of more than 200 mg/dL in a nonstressed, ambulatory subject supports the diagnosis of Diabetes Mellitus. No Panel InformationOrdered By: Gagan Shahid on 01-17-2022 Estimated GFR () 55 mL/Min [facility] Comment on above: GFR estimated refere nce range: According to KDOQI guidelines, <60 ml/min/1.73m2 is sufficient to diagnose a patient with chronic kidney disease. Pharmacy Creatinine Clearance (Chem 42.00 [facility] Serum or plasma anion gap de terminationOrdered By: Gagan Shahid on 01-17-2022 Anion gap [Moles/Vol] 12.0 mmol/L 6.0-15.0 [facility] Serum or plasma calcium radha urement (mass/volume)Ordered By: Gagan Shahid on 01-17-2022 Calcium [Mass/Vol] 9.0 mg/dL 8.2-10.2 [facility] Serum or plasma chloride shanae surement (moles/volume)Ordered By: Gagan Shahid on 01-17-2022 Chloride [Moles/Vol] 107 mmol/L 95-114 [facility] Serum or plasma glucose radha urement (mass/volume)Ordered By: Gagan Shahid on 01-17-2022 Glucose [Mass/Vol] 142 mg/dL 70-100 [facility] Comment on above: ADA recommended refe rence rangeRandom Glucose Reference Range is dependent on time and content of last meal. Glucose of more than 200 mg/dL in a nonstressed, ambulatory subject supports the diagnosis of Diabetes Mellitus. Serum or plasma potassium me asurement (moles/volume)Ordered By: Gagan Shahid on 01-17-2022 Potassium [Moles/Vol] 3.5 mmol/L 3.5-5.1 [facility] Serum or plasma sodium measu rement (moles/volume)Ordered By: Gagan Shahid on 01-17-2022 Sodium [Moles/Vol] 137 mmol/L 136-146 [facility] Serum or plasma total carbon dioxide measurement (moles/volume)Ordered By: Gagan Shahid on 01-17-2022 CO2 [Moles/Vol] 21.5 mmol/L 22.0-30.0 [facility] Serum or plasma urea nitroge n measurement (mass/volume)Ordered By: Gagan Shahid on 01-17-2022 Urea nitrogen [Mass/Vol] 24 mg/dL 9- [facility] Activated partial thrombopla stin time (aPTT) in platelet poor plasma by coagulation aOrdered By: Gagan Shahid on 01-16-2022 aPTT Coag (PPP) [Time] 42.1 s 25.1-36.5 [facility] Basophils Auto (Bld) [#/Vol] Ordered By: Gagan Shahid on 01-16-2022 Basophils (Bld) [#/Vol] 0.0 10*3/uL 0.0-0.2 [facility] Basophils/100 WBC Auto (Bld) Ordered By: Gagan Shahid on 01-16-2022 Basophils/100 WBC (Bld) 0.5 % . [facility] Creatine kinase [Enzymatic a ctivity/volume] in Serum or PlasmaOrdered By: Gagan Shahid on 01-16-2022 CK [Catalytic activity/Vol] 92 U/L 22-269 [facility] Eosinophils Auto (Bld) [#/Vo l]Ordered By: Gagan Shahid on 01-16-2022 Eosinophils (Bld) [#/Vol] 0.2 10*3/uL 0.0-0.45 [facility] Eosinophils/100 WBC Auto (Bl d)Ordered By: Gagan Shahid on 01-16-2022 Eosinophils/100 WBC (Bld) 2.4 % . [facility] Erythrocyte distribution wid th Auto (RBC) [Ratio]Ordered By: Gagan Shahid on 01-16-2022 Erythrocyte distribution width (RBC) [Ratio] 14.6 % 12.0-14.8 [facility] Hematocrit Auto (Bld) [Volum e fraction]Ordered By: Gagan Shahid on 01-16-2022 Hematocrit (Bld) [Volume fraction] 43.4 % 38.8-50.0 [facility] Hemoglobin [Mass/volume] in BloodOrdered By: Gagan Shahid on 01-16-2022 Hemoglobin (Bld) [Mass/Vol] 14.4 g/dL 13.0-17.0 [facility] Laboratory - Chemistry and C hemistry - challengeOrdered By: Gagan Shahid on 01-16-2022 Magnesium [Mass/Vol] 1.9 mg/dL 1.6-2.6 [facility] - CoagulationOrde red By: Gagan Shahid on 01-16-2022 PT Coag (PPP) [Time] 15.7 s 9.0-12.9 [facility] - Hematology and Cell countsOrdered By: Gagan Shahid on 01-16-2022 Nucleated RBC/100 WBC (Bld) [Ratio] 0.1 % 0-0.5 [facility] Leukocytes [#/volume] in Blo od by Automated countOrdered By: Gagan Shahid on 01-16-2022 WBC (Bld) [#/Vol] 8.2 10*3/uL 4.5-11.0 [facility] Lymphocytes Auto (Bld) [#/Vo l]Ordered By: Gagan Shahid on 01-16-2022 Lymphocytes (Bld) [#/Vol] 1.6 10*3/uL 1.00-4.8 [facility] Lymphocytes/100 WBC Auto (Bl d)Ordered By: Gagan Shahid on 01-16-2022 Lymphocytes/100 WBC (Bld) 19.5 % . [facility] MCH Auto (RBC) [Entitic mass ]Ordered By: Gagan Shahid on 01-16-2022 MCH (RBC) [Entitic mass] 29.4 pg 27.5-35.2 [facility] MCHC Auto (RBC) [Mass/Vol]Or dered By: Gagan Shahid on 01-16-2022 MCHC (RBC) [Mass/Vol] 33.2 g/dL 32.5-35.6 [facility] MCV Auto (RBC) [Entitic vol] Ordered By: Gagan Shahid on 01-16-2022 MCV (RBC) [Entitic vol] 88.5 fL 83.5-101 [facility] Monocytes Auto (Bld) [#/Vol] Ordered By: Gagan Shahid on 01-16-2022 Monocytes (Bld) [#/Vol] 0.8 10*3/uL 0.0-0.8 [facility] Monocytes/100 WBC Auto (Bld) Ordered By: Gagan Shahid on 01-16-2022 Monocytes/100 WBC (Bld) 9.1 % . [facility] Neutrophils Auto (Bld) [#/Vo l]Ordered By: Gagan Shahid on 01-16-2022 Neutrophils (Bld) [#/Vol] 5.6 10*3/uL 1.8-7.7 [facility] Neutrophils/100 WBC Auto (Bl d)Ordered By: Gagan Shahid on 01-16-2022 Neutrophils/100 WBC (Bld) 68.5 % . [facility] No Panel InformationOrdered By: Gagan Shahid on 01-16-2022 Bedside Glucose Comment Glu2: cleaned meter [facility] Platelet mean volume Auto (B ld) [Entitic vol]Ordered By: Gagan Shahid on 01-16-2022 Platelet mean volume (Bld) [Entitic vol] 8.4 fL 6.6-10.1 [facility] Platelet poor plasma interna tional normalized ratio (INR) by coagulation assay (relatOrdered By: Gaagn Shahid on 01-16-2022 INR Coag (PPP) [Relative time] 1.4 {INR} [facility] Comment on above: INR Therapeutic [...] 01-16-2022 Platelets (Bld) [#/Vol] 178 10*3/uL 150-450 [facility] RBC Auto (Bld) [#/Vol]Ordere d By: Gagan Shahid on 01-16-2022 RBC (Bld) [#/Vol] 4.90 10*6/uL 3.90-5.60 [facility] Serum or plasma creatine kin ase MB (CKMB)/total creatine kinase (CK) ratio by calculaOrdered By: Gagan Shahid on 01-16-2022 CK.MB Calc [Catalytic fraction] 3.2 % 0.00-2.50 [facility] Serum or plasma creatine kin ase MB measurement (mass/volume)Ordered By: Gagan Shahid on 01-16-2022 CK.MB [Mass/Vol] 3.0 ng/mL 0.6-6.3 [facility] Troponin I.cardiac [Mass/vol ume] in Serum or Plasma by High sensitivity methodOrdered By: Gagan Shahid on 01-16-2022 Troponin I.cardiac High sensitivity method [Mass/Vol] 525 pg/mL 0-20 [facility] Comment on above: Critical valueresult calledat 1844 on 01/16/22 BNPon 01-15-2022 Natriuretic peptide B (Bld) [Mass/Vol] 1012.0 pg/mL Critically high <=900.0 [facility] Comment on above: Performed By: #### B WELDING TESTER #### [facility] [address] [address] [address] Mirza Sadler CARDIAC PARUL ADMITon 022 CK [Catalytic activity/Vol] 93 U/L Normal 39-308 [facility] Comment on above: Performed By: #### C TEGAN MARIN #### [facility] [address] [address] [address] Mirza Sadler CK.MB [Mass/Vol] 1.67 ng/mL Normal <=3.60 [facility] Comment on above: Performed By: #### C TEGAN MARIN #### [facility] [address] [address] [address] Mirza Sadler HSTROP 17.1 pg/mL Normal 4.0-76.1 [facility] Comment on above: Result Comment: CUT- OFF POINTS HAVE BEEN ESTABLISHED BASED ON THE FOURTH UNIVERSAL DEFINITIONS OF MYOCARDIAL INFARCTION. THE UPPER REFERENCE LIMIT (URL) OF TROPONIN, DEFINED THE 99TH PERCENTILE OF cTnI DISTRIBUTION IN A REFERENCE POPULATION, HAS BEEN CONFIRMED THE DECISION THRESHOLD FOR MT DIAGNOSIS. Performed By: #### C TANIA, CMADM #### [facility] [address] [place] [address] Dr. Mirza Sadler RACHEL 63 ng/mL Normal 16-96 [facility] Comment on above: Performed By: #### C TANIA, CMADM #### [facility] [address] [place] [address] Dr. Mirza Sadler CBC AUTO DIFFon 01-15-2022 BASO # 0.1 103/ul Normal 0.0-0.1 [facility] Comment on above: Performed By: #### E RUR #### [facility] [address] [place] [address] Dr. Mirza Sadler Basophils/100 WBC (Bld) 0.9 % Normal 0.2-2.0 [facility] [facility] Comment on above: Performed By: #### E RUR #### [facility] [address] [place] [address] Dr. Mirza Sadler EO # 0.3 103/ul Normal 0.0-0.7 [facility] Comment on above: Performed By: #### E RUR #### [facility] [address] [place] [address] Dr. Mirza Sadler Eosinophils/100 WBC (Bld) 3.1 % Normal 0.9-7.0 [facility] Comment on above: Performed By: #### E RUR #### [facility] [address] [place] [address] Dr. Mirza Sadler Erythrocyte distribution width (RBC) [Ratio] 14.2 % Normal 11.0-15.0 [facility] Comment on above: Performed By: #### E RUR #### [facility] [address] [place] [address] Dr. Mirza Sadler Hematocrit (Bld) [Volume fraction] 44.4 % Normal 42.0-54.0 [facility] Comment on above: Performed By: #### E RUR #### [facility] [address] [place] [address] Dr. Mirza Sadler Hemoglobin (Bld) [Mass/Vol] 14.4 g/dL Normal 14.0-18.0 [facility] Comment on above: Performed By: #### E RUR #### [facility] [address] [place] [address] Dr. Mirza Sadler IG # 0.03 10e3/ul Normal 0.00-0.03 [facility] Comment on above: Performed By: #### E RUR #### [facility] [address] [place] [address] Dr. Mirza Sadler IG % 0.3 % Normal 0.0-0.5 [facility] Comment on above: Performed By: #### E RUR #### [facility] [address] [place] [address] Dr. Mirza Sadler LYMPH # 1.6 103/ul Normal 1.2-3.8 [facility] Comment on above: Performed By: #### E RUR #### [facility] [address] [place] [address] Dr. Mirza Sadler Lymphocytes/100 WBC (Bld) 16.8 % Critically low 20.5-60.0 [facility] Comment on above: Performed By: #### E RUR #### [facility] [address] [place] [address] Dr. Mirza Sadler MANUAL DIFF REQ NO Normal [facility] Comment on above: Performed By: #### E RUR #### [facility] [address] [place] [address] Dr. Mirza Sadler MCH (RBC) [Entitic mass] 29.4 pg Normal 25.9-34.0 [facility] Comment on above: Performed By: #### E RUR #### [facility] [address] [place] [address] Dr. Mirza Sadler MCHC (RBC) [Mass/Vol] 32.4 g/dL Normal 29.9-35.2 [facility] Comment on above: Performed By: #### E RUR #### [facility] [address] [place] [address] Dr. Mirza Sadler MCV (RBC) [Entitic vol] 90.6 fL Normal 80.0-94.0 [facility] Comment on above: Performed By: #### E RUR #### [facility] [address] [place] [address] Dr. Mirza Sadler MONO # 0.5 103/ul Normal 0.3-0.8 [facility] Comment on above: Performed By: #### E RUR #### [facility] [address] [place] [address] Dr. Mirza Sadler Monocytes/100 WBC (Bld) 5.9 % Normal 1.7-12.0 [facility] Comment on above: Performed By: #### E RUR #### [facility] [address] [place] [address] Dr. Mirza Sadler NEUT # 6.7 103/ul Critically high 1.4-6.5 [facility] Comment on above: Performed By: #### E RUR #### [facility] [address] [place] [address] Dr. Mirza Sadler Neutrophils/100 WBC (Bld) 73.0 % Normal 43.0-75.0 [facility] Comment on above: Performed By: #### E RUR #### [facility] [address] [place] [address] Dr. Mirza Sadler Platelet mean volume (Bld) [Entitic vol] 10.0 fL Normal 9.5-13.5 [facility] Comment on above: Performed By: #### E RUR #### [facility] [address] [place] [address] Dr. Mirza Sadler PLT 190 103/ul Normal 150-450 [facility] Comment on above: Performed By: #### E RUR #### [facility] [address] [place] [address] Dr. Mirza Sadler RBC 4.90 106/ul Normal 4.70-6.10 [facility] Comment on above: Performed By: #### E RUR #### [facility] [address], [place] [address] Dr. Mirza Sadler WBC 9.2 103/ul Normal 4.0-11.0 [facility] Comment on above: Performed By: #### E RUR #### [facility] [address], [place] [address] CHEST WO CONon [...] HIGINIO FLANAGAN Date: 2022-01-15 08:19 Normal [facility] CULTURE BLOODon 01-15-2022 Microscopic examination of blood, culture Culture Observations: NO GROWTH AT 5 DAYS. Normal [facility] Comment on above: Performed By: #### H STROPN #### [facility] [address] [place] [address] Dr. Mirza Sadler Microscopic examination of blood, culture Culture Observations: NO GROWTH AT 5 DAYS. Normal [facility] Comment on above: Performed By: #### B LDCX1 #### [facility] [address] [place] [address] Dr. Mirza Sadler [facility] SARS-CoV-2 (COVID-19) RNA RAMO+probe Ql (Unsp spec) Not detected Normal NOT DETECTED [facility] Comment on above: Result Comment: When [...] for this test is supported by the [place] of Health and Human Service's declaration that [...] longer be used). Performed By: #### B WELDING TESTER #### [facility] [address] [place] [address] Dr. Mirza Sadler ER URINE PROFILEon 2 Bilirubin Ql (U) Negative Normal NEGATIVE [facility] Comment on above: Performed By: #### C TEGAN MARIN #### [facility] [address] [place] [address] Dr. Mirza Sadler Clarity (U) CLEAR Normal CLEAR [facility] Comment on above: Performed By: #### C MP, CMADM #### [facility] [address] [address] [address] Mirza Sadler Color (U) LT. YELLOW Normal YELLOW [facility] Comment on above: Performed By: #### C TANIA, CMADM #### [facility] [address] [address] [address] Mirza Sadler ERUAHD A micrscopic examina tion will be performed if indicated. Normal [facility] Comment on above: Performed By: #### C TANIA, CMADM #### [facility] [address] [address] [address] Mirza Sadler Glucose Ql (U) >1000 Abnormal NEGATIVE [facility] Comment on above: Performed By: #### C TANIA, CMADM #### [facility] [address] [address] [address] Mirza Sadler Hemoglobin Ql (U) Negative Normal NEGATIVE [facility] Comment on above: Performed By: #### C TANIA, CMADM #### [facility] [address] [address] [address] Mirza Sadler Ketones Ql (U) TRACE Abnormal NEGATIVE [facility] Comment on above: Performed By: #### C TANIA, CMADM #### [facility] [address] [address] [address] Mirza Sadler LEUKOCYTES Negative Normal NEGATIVE [facility] Comment on above: Performed By: #### C TANIA, CMADM #### [facility] [address] [address] [address] Mirza Sadler Nitrite Ql (U) Negative Normal NEGATIVE [facility] Comment on above: Performed By: #### C TANIA, CMADM #### [facility] [address] [address] [address] Mirza Sadler pH (U) 5.5 [pH] Normal 5-9 [facility] Comment on above: Performed By: #### C TANIA, CMADM #### [facility] [address] [address] [address] Mirza Sadler SPEC GRAVITY 1.020 Normal 1.005-<=1. 025 [facility] Comment on above: Performed By: #### C MP, CMADM #### [facility] [address] [place] [address] Dr. Mirza Sadler UA PROTEIN TRACE Normal NEGATIVE/ TRACE [facility] Comment on above: Performed By: #### C MP, CMADM #### [facility] [address] [place] [address] Dr. Mirza Sadler UR MICRO IND NOT INDICATED Normal [facility] Comment on above: Performed By: #### C MP, CMADM #### [facility] [address] [place] [address] Dr. Mirza Sadler Urobilinogen Qn (U) 0.2 {Luisito'U}/dL Normal 0.2 - 1. 0 [facility] Comment on above: Performed By: #### C TANIA, CMADM #### [facility] [address] [place] [address] Dr. Mirza Sadler LACTATE/LACTIC ACIDon 2021 Lactate [Moles/Vol] 0.8 mmol/L Normal 0.4-1.9 [facility] Comment on above: Performed By: #### P T, PTT #### [facility] [address] [place] [address] Dr. Mirza Sadler PROF 14(COMP METB)on 022 Albumin [Mass/Vol] 4.4 g/dL Normal 3.4-5.0 [facility] Comment on above: Performed By: #### C TANIA, CMADM #### [facility] [address] [place] [address] Dr. Mirza Sadler Albumin/Globulin [Mass ratio] 1.3 {ratio} Normal [facility] Comment on above: Performed By: #### C TANIA, CMADM #### [facility] [address] [place] [address] Dr. Mirza Sadler ALP [Catalytic activity/Vol] 155 U/L Critically high 46-116 [facility] Comment on above: Performed By: #### C MP, CMADM #### [facility] [address] [place] [address] Dr. Mirza Sadler ALT [Catalytic activity/Vol] 27 U/L Normal 16-63 [facility] Comment on above: Performed By: #### C TANIA, DOMDM #### [facility] [address] [place] [address] Dr. Mirza Sadler Anion gap [Moles/Vol] 14.9 mmol/L Normal [facility] Comment on above: Performed By: #### C TANIA, DOMDM #### [facility] [address] [place] [address] Dr. Mirza Sadler AST [Catalytic activity/Vol] 22 U/L Normal 15-37 [facility] Comment on above: Performed By: #### C TEGAN MARIN #### [facility] [address] [place] [address] Dr. Mirza Sadler Bilirubin [Mass/Vol] 0.8 mg/dL Normal 0.2-1.0 [facility] Comment on above: Performed By: #### C TEGAN MARIN #### [facility] [address] [place] [address] Dr. Mirza Sadler Calcium [Mass/Vol] 8.8 mg/dL Normal 8.5-10.1 [facility] Comment on above: Performed By: #### C TEGAN MARIN #### [facility] [address] [place] [address] Dr. Mirza Sadler Chloride [Moles/Vol] 106 mmol/L Normal 98-107 [facility] Comment on above: Performed By: #### C TEGAN MARIN #### [facility] [address] [place] [address] Dr. Mirza Sadler CO2 [Moles/Vol] 23.9 mmol/L Normal 21.0-32.0 [facility] Comment on above: Performed By: #### C TEGAN MARIN #### [facility] [address] [place] [address] Dr. Mirza Sadler Creatinine [Mass/Vol] 1.51 mg/dL Critically high 0.70-1.30 [facility] Comment on above: Performed By: #### C TEGAN MARIN #### [facility] [address] [address] [address] Mirza Sadler EGFR-AF SAUDI ARABIAN 56 mL/min/1.73m2 Critically low >=60 [facility] Comment on above: Performed By: #### C MP, CMADM #### [facility] [address] [address] [address] Mirza Sadler EGFR-NON AF SAUDI ARABIAN 46 mL/min/1.73m2 Critically low >=60 [facility] Comment on above: Performed By: #### C MP, CMADM #### [facility] [address] [address] [address] Mirza Sadler Globulin (S) [Mass/Vol] 3.4 g/dL Normal [facility] Comment on above: Performed By: #### C TANIA, CMADM #### [facility] [address] [address] [address] Mirza Sadler Glucose [Mass/Vol] 189 mg/dL Critically high 74-106 [facility] Comment on above: Performed By: #### C TANIA, CMADM #### [facility] [address] [address] [address] Mirza Sadler Potassium [Moles/Vol] 3.8 mmol/L Normal 3.5-5.1 [facility] Comment on above: Performed By: #### C TANIA, CMADM #### [facility] [address] [address] [address] Mirza Sadler Protein [Mass/Vol] 7.8 g/dL Normal 6.4-8.2 [facility] Comment on above: Performed By: #### C MP, CMADM #### [facility] [address] [address] [address] Mirza Sadler Sodium [Moles/Vol] 141 mmol/L Normal 136-145 [facility] Comment on above: Performed By: #### C TANIA, CMADM #### [facility] [address] [address] [address] Mirza Sadler Urea nitrogen [Mass/Vol] 22.0 mg/dL Critically high 7.0-18.0 [facility] Comment on above: Performed By: #### C TANIA, TEGAN #### [facility] [address] [place] [address] Dr. Mirza Sadler Urea nitrogen/Creatinine [Mass ratio] 14.6 mg/mg Normal [facility] Comment on above: Performed By: #### C TANIA, TEGAN #### [facility] [address] [place] [address] Dr. Mirza Sadler PROTIMEon 01-15-2022 INR Coag (PPP) [Relative time] 1.10 {INR} Normal [facility] Comment on above: Performed By: #### E RUR #### [facility] [address] [place] [address] Dr. Mirza Sadler INR GUIDELINES SEE BELOW Normal [facility] Comment on above: Result Comment: RIVKA RED INR: 2.0 - 3.0 CONDITIONS NOT LISTED BELOW 2.5 - 3.5 FOR PROSTHETIC HEART VALVE REPLACEMENT 2.5 - 3.5 RECURRENT THROMBOSIS Performed By: #### E RUR #### [facility] [address] [place] [address] Dr. Mirza Sadler PT Coag (PPP) [Time] 11.8 s Critically high 9.0-11.6 [facility] Comment on above: Performed By: #### E RUR #### [facility] [address] [place] [address] Dr. Mirza Sadler PTTon 01-15-2022 aPTT Coag (Bld) [Time] 29.0 s Normal 22.3-36.2 [facility] Comment on above: Performed By: #### E RUR #### [facility] [address] [place] [address] Dr. Mirza Sadler TROPONIN, HIGH SENSITIVITYon 01-15-2022 HSTROP 1786.2 pg/mL Critically high 4.0-76.1 [facility] Comment on above: Result Comment: CUT- OFF POINTS HAVE BEEN ESTABLISHED BASED ON THE FOURTH UNIVERSAL DEFINITIONS OF MYOCARDIAL INFARCTION. THE UPPER REFERENCE LIMIT (URL) OF TROPONIN, DEFINED THE 99TH PERCENTILE OF cTnI DISTRIBUTION IN A REFERENCE POPULATION, HAS BEEN CONFIRMED THE DECISION THRESHOLD FOR MT DIAGNOSIS. Performed By: #### H STROPN #### [facility] [address], [place] [address] Dr. Mirza Sadler HSTROP 669.3 pg/mL Critically high 4.0-76.1 [facility] Comment on above: Result Comment: CUT- OFF POINTS HAVE BEEN ESTABLISHED BASED ON THE FOURTH UNIVERSAL DEFINITIONS OF MYOCARDIAL INFARCTION. THE UPPER REFERENCE LIMIT (URL) OF TROPONIN, DEFINED THE 99TH PERCENTILE OF cTnI DISTRIBUTION IN A REFERENCE POPULATION, HAS BEEN CONFIRMED THE DECISION THRESHOLD FOR MT DIAGNOSIS. Performed By: #### H STROPN #### [facility] [address], [place] [address] Dr. Mirza Sadler XR CHEST 1 Von [...] WAYNE CASEY Date: 2022-01-15 06:42 Normal [facility] A1C HEMOGLOBINon 12-18-2021 HbA1c (Bld) [Mass fraction] 6.2 % Remerge Other Glucose - FINGER STICKon Glucose [Mass/Vol] 120 mg/dL [facility] Other HbA1c (Bld) [Mass fraction]o n 12-18-2021 A1C HEMOGLOBIN THE [facility] Other XR CHEST 2 Von 12-08-2021 XR [...] HIGINIO FLANAGAN Date: 2021-12-08 16:07 Normal [facility] PTH INTACTon 12-01-2021 PTH, Intact 15 pg/mL Normal 15-65 [facility] Comment on above: Performed By: #### C MP, CMADM #### [facility] [address] [address] [address] Mirza Sadler VIT D 25-OH LABCORPon 2021 Vitamin D, 25-Hydroxy 41.2 ng/mL Normal 30.0-100.0 [facility] Comment on above: Result Comment: Cielo min D deficiency has been defined by the [place] of [employer] and an Endocrine Society practice guideline as a level of serum 25-OH vitamin D less than 20 ng/mL (1,2). The Endocrine Society went on to further define vitamin D insufficiency as a level between 21 and 29 ng/mL (2). 1. IOM ([place] of Medicine). 2010. Dietary reference intakes for calcium and D. [place]: The National Academies Press. 2. Noemy MENDIETA, Sonam PAUL, Jake HERMOSILLO, et al. Evaluation, treatment, and prevention of vitamin D deficiency: an Endocrine Society clinical practice guideline. JCEM. 2010; 96(7):1911-30. Performed By: #### P T, PTT #### [facility] [address] [address] [address] Mirza Sadler HEMOGRAM AND PLATELon 2021 Hematocrit (Bld) [Volume fraction] 39.9 % Critically low 42.0-54.0 [facility] Comment on above: Performed By: #### P T, PTT #### [facility] [address], [place] [address] Dr. Miraz Sadler Hemoglobin (Bld) [Mass/Vol] 13.1 g/dL Critically low 14.0-18.0 [facility] Comment on above: Performed By: #### P T, PTT #### [facility] [address] [address] [address] Mirza Sadler MCH (RBC) [Entitic mass] 29.5 pg Normal 25.9-34.0 [facility] Comment on above: Performed By: #### P T, PTT #### [facility] [address] [place] [address] Dr. Mirza Sadler MCHC (RBC) [Mass/Vol] 32.8 g/dL Normal 29.9-35.2 [facility] Comment on above: Performed By: #### P T, PTT #### [facility] [address] [place] [address] Dr. Mirza Sadler MCV (RBC) [Entitic vol] 89.9 fL Normal 80.0-94.0 [facility] Comment on above: Performed By: #### P T, PTT #### [facility] [address] [place] [address] Dr. Mirza Sadler PLT 182 103/ul Normal 150-450 [facility] Comment on above: Performed By: #### P T, PTT #### [facility] [address] [place] [address] Dr. Mirza Sadler RBC 4.44 106/ul Critically low 4.70-6.10 [facility] Comment on above: Performed By: #### P T, PTT #### [facility] [address] [place] [address] Dr. Mirza Sadler WBC 6.9 103/ul Normal 4.0-11.0 [facility] Comment on above: Performed By: #### P T, PTT #### [facility] [address] [place] [address] Dr. Mirza Sadler MAGNESIUMon 11-30-2021 Magnesium [Mass/Vol] 1.8 mg/dL Normal 1.8-2.4 [facility] Comment on above: Performed By: #### P T, PTT #### [facility] [address] [place] [address] Dr. Mirza Sadler RENAL FUNCTION PANELon 11-30 Albumin [Mass/Vol] 3.9 g/dL Normal 3.4-5.0 [facility] Comment on above: Performed By: #### P T, PTT #### [facility] [address] [address] [address] Mirza Sadler Calcium [Mass/Vol] 9.0 mg/dL Normal 8.5-10.1 [facility] Comment on above: Performed By: #### P T, PTT #### [facility] [address] [address] [address] Mirza Sadler Chloride [Moles/Vol] 107 mmol/L Normal 98-107 [facility] Comment on above: Performed By: #### P T, PTT #### [facility] [address] [place] [address] Dr. Mirza Sadler CO2 [Moles/Vol] 26.2 mmol/L Normal 21.0-32.0 [facility] Comment on above: Performed By: #### P T, PTT #### [facility] [address] [place] [address] Dr. Mirza Sadler Creatinine [Mass/Vol] 1.55 mg/dL Critically high 0.70-1.30 [facility] Comment on above: Performed By: #### P T, PTT #### [facility] [address] [place] [address] Dr. Mirza Sadler EGFR-AF SAUDI ARABIAN 54 mL/min/1.73m2 Critically low >=60 [facility] Comment on above: Performed By: #### P T, PTT #### [facility] [address] [place] [address] Dr. Mirza Sadler EGFR-NON AF SAUDI ARABIAN 45 mL/min/1.73m2 Critically low >=60 [facility] Comment on above: Performed By: #### P T, PTT #### [facility] [address] [place] [address] Dr. Mirza Sadler Glucose [Mass/Vol] 166 mg/dL Critically high 74-106 [facility] Comment on above: Performed By: #### P T, PTT #### [facility] [address] [address] [address] Mirza Sadler Phosphate [Mass/Vol] 3.7 mg/dL Normal 2.6-4.7 [facility] Comment on above: Performed By: #### P T, PTT #### [facility] [address] [place] [address] Dr. Mirza Sadler Potassium [Moles/Vol] 4.2 mmol/L Normal 3.5-5.1 [facility] Comment on above: Performed By: #### P T, PTT #### [facility] [address] [place] [address] Dr. Mirza Sadler Sodium [Moles/Vol] 142 mmol/L Normal 136-145 [facility] Comment on above: Performed By: #### P T, PTT #### [facility] [address] [place] [address] Dr. Mirza Sadler Urea nitrogen [Mass/Vol] 16.0 mg/dL Normal 7.0-18.0 [facility] Comment on above: Performed By: #### P T, PTT #### [facility] [address] [place] [address] Dr. Mirza Sadler UA RANDOM W/MICROSCOPICon BACTERIA NONE SEEN Normal NONE SEEN [facility] Comment on above: Performed By: #### B LDCX2 #### [facility] [address] [place] [address] Dr. Mirza Sadler Bilirubin Ql (U) Negative Normal NEGATIVE [facility] Comment on above: Performed By: #### B LDCX2 #### [facility] [address] [place] [address] Dr. Mirza Sadler CAST NONE SEEN Normal NONE SEEN [facility] Comment on above: Performed By: #### B LDCX2 #### [facility] [address] [place] [address] Dr. Mirza Sadler Clarity (U) CLEAR Normal CLEAR [facility] Comment on above: Performed By: #### B LDCX2 #### [facility] [address] [place] [address] Dr. Mirza Sadler Color (U) LT. YELLOW Normal YELLOW [facility] Comment on above: Performed By: #### B LDCX2 #### [facility] [address] [address] [address] Mirza Sadler Crystals LM Nom (Urine sed) NONE SEEN Normal NONE SEEN [facility] Comment on above: Performed By: #### B LDCX2 #### [facility] [address] [place] [address] Dr. Mirza Sadler Epithelial cells LM Ql (Urine sed) RARE Normal NONE SEEN /RARE [facility] Comment on above: Performed By: #### B LDCX2 #### [facility] [address] [place] [address] Dr. Mirza Sadler Glucose Ql (U) >1000 Abnormal NEGATIVE [facility] Comment on above: Performed By: #### B LDCX2 #### [facility] [address] [place] [address] Dr. Mirza Sadler Hemoglobin Ql (U) Negative Normal NEGATIVE [facility] Comment on above: Performed By: #### B LDCX2 #### [facility] [address] [place] [address] Dr. Mirza Sadler Ketones Ql (U) Negative Normal NEGATIVE [facility] Comment on above: Performed By: #### B LDCX2 #### [facility] [address] [place] [address] Dr. Mirza Sadler LEUKOCYTES Negative Normal NEGATIVE [facility] Comment on above: Performed By: #### B LDCX2 #### [facility] [address] [address] [address] Mirza Sadler MUCOUS NONE SEEN Normal NONE SEEN [facility] Comment on above: Performed By: #### B LDCX2 #### [facility] [address] [address] [address] Mirza Sadler Nitrite Ql (U) Negative Normal NEGATIVE [facility] Comment on above: Performed By: #### B LDCX2 #### [facility] [address] [place] [address] Dr. Mirza Sadler pH (U) 5.5 [pH] Normal 5-9 [facility] Comment on above: Performed By: #### B LDCX2 #### [facility] [address] [place] [address] Dr. Mirza Sadler RBC NONE SEEN Abnormal 0-2 [facility] Comment on above: Performed By: #### B LDCX2 #### [facility] [address] [place] [address] Dr. Mirza Sadler SPEC GRAVITY 1.015 Normal 1.005-<=1. 025 [facility] Comment on above: Performed By: #### B LDCX2 #### [facility] [address] [place] [address] Dr. Mirza Sadler UA PROTEIN Negative Normal NEGATIVE/ TRACE [facility] Comment on above: Performed By: #### B LDCX2 #### [facility] [address] [place] [address] Dr. Mirza Sadler Urobilinogen Qn (U) 0.2 {Luisito'U}/dL Normal 0.2 - 1. 0 [facility] Comment on above: Performed By: #### B LDCX2 #### [facility] [address] [place] [address] Dr. Mirza Sadler WBC NONE SEEN Normal NONE SEEN [facility] Comment on above: Performed By: #### B LDCX2 #### [facility] [address] [place] [address] Dr. Mirza Sadler URINE T PROTEIN CREAT RATIOo n 11-30-2021 Protein (U) [Mass/Vol] 22.4 mg/dL Critically high <=12.0 [facility] Comment on above: Performed By: #### U RTPCR #### [facility] [address] [place] [address] Dr. Mirza Sadler UR PROT CREAT RAT 0.31 Normal [facility] [facility] Comment on above: Performed By: #### U RTPCR #### [facility] [address] [place] [address] Dr. Mirza Sadler URINE CREAT 73.05 mg/dL Normal 20.00-300. 00 [facility] Comment on above: Performed By: #### U RTPCR #### [facility] [address] [address] [address] Mirza Sadler NM HEPATOBILIARY SCAN W [...] HIGINIO FLANAGAN Date: 2021-11-24 11:55 Normal [facility] BNPon 10-27-2021 Natriuretic peptide B (Bld) [Mass/Vol] 574.0 pg/mL Normal <=900.0 [facility] Comment on above: Performed By: #### P T, PTT #### [facility] [address] [address] [address] Mirza Sadler CARDIAC PARUL ADMITon 022 CK [Catalytic activity/Vol] 70 U/L Normal 39-308 [facility] Comment on above: Performed By: #### P T, PTT #### [facility] [address] [address] [address] iMrza Sadler CK.MB [Mass/Vol] 1.10 ng/mL Normal <=3.60 [facility] Comment on above: Performed By: #### P T, PTT #### [facility] [address] [address] [address] Mirza Sadler HSTROP 22.3 pg/mL Normal 4.0-76.1 [facility] Comment on above: Result Comment: CUT- OFF POINTS HAVE BEEN ESTABLISHED BASED ON THE FOURTH UNIVERSAL DEFINITIONS OF MYOCARDIAL INFARCTION. THE UPPER REFERENCE LIMIT (URL) OF TROPONIN, DEFINED THE 99TH PERCENTILE OF cTnI DISTRIBUTION IN A REFERENCE POPULATION, HAS BEEN CONFIRMED THE DECISION THRESHOLD FOR MT DIAGNOSIS. Performed By: #### P T, PTT #### [facility] [address] [place] [address] Dr. Mirza Sadler RACHEL 81 ng/mL Normal 16-96 [facility] Comment on above: Performed By: #### P T, PTT #### [facility] [address] [place] [address] Dr. Mirza Sadler CBC AUTO DIFFon 10-27-2021 BASO # 0.1 103/ul Normal 0.0-0.1 [facility] Comment on above: Performed By: #### E RUR #### [facility] [address] [place] [address] Dr. Mirza Sadler Basophils/100 WBC (Bld) 0.4 % Normal 0.2-2.0 [facility] Comment on above: Performed By: #### E RUR #### [facility] [address] [place] [address] Dr. Mirza Sadler EO # 0.1 103/ul Normal 0.0-0.7 [facility] Comment on above: Performed By: #### E RUR #### [facility] [address] [place] [address] Dr. Mirza Sadler Eosinophils/100 WBC (Bld) 0.4 % Critically low 0.9-7.0 [facility] Comment on above: Performed By: #### E RUR #### [facility] [address] [place] [address] Dr. Mirza Sadler Erythrocyte distribution width (RBC) [Ratio] 14.1 % Normal 11.0-15.0 [facility] Comment on above: Performed By: #### E RUR #### [facility] [address] [place] [address] Dr. Mirza Sadler Hematocrit (Bld) [Volume fraction] 41.0 % Critically low 42.0-54.0 [facility] Comment on above: Performed By: #### E RUR #### [facility] [address] [address] [address] Mirza Sadler Hemoglobin (Bld) [Mass/Vol] 14.1 g/dL Normal 14.0-18.0 [facility] Comment on above: Performed By: #### E RUR #### [facility] [address] [address] [address] Mirza Sadler IG # 0.05 10e3/ul Critically high 0.00-0.03 [facility] Comment on above: Performed By: #### E RUR #### [facility] [address] [place] [address] Dr. Mirza Sadler IG % 0.4 % Normal 0.0-0.5 [facility] Comment on above: Performed By: #### E RUR #### [facility] [address] [place] [address] Dr. Mirza Sadler LYMPH # 0.9 103/ul Critically low 1.2-3.8 [facility] Comment on above: Performed By: #### E RUR #### [facility] [address] [place] [address] Dr. Mirza Sadler Lymphocytes/100 WBC (Bld) 6.6 % Critically low 20.5-60.0 [facility] Comment on above: Performed By: #### E RUR #### [facility] [address] [place] [address] Dr. Mirza Sadler MANUAL DIFF REQ NO Normal [facility] Comment on above: Performed By: #### E RUR #### [facility] [address] [place] [address] Dr. Mirza Sadler MCH (RBC) [Entitic mass] 29.7 pg Normal 25.9-34.0 [facility] Comment on above: Performed By: #### E RUR #### [facility] [address] [place] [address] Dr. Mirza Sadler MCHC (RBC) [Mass/Vol] 34.4 g/dL Normal 29.9-35.2 [facility] Comment on above: Performed By: #### E RUR #### [facility] [address] [address] [address] Mirza Sadler MCV (RBC) [Entitic vol] 86.3 fL Normal 80.0-94.0 [facility] Comment on above: Performed By: #### E RUR #### [facility] [address] [place] [address] Dr. Mirza Sadler MONO # 0.4 103/ul Normal 0.3-0.8 [facility] Comment on above: Performed By: #### E RUR #### [facility] [address] [place] [address] Dr. Mirza Sadler Monocytes/100 WBC (Bld) 2.6 % Normal 1.7-12.0 [facility] Comment on above: Performed By: #### E RUR #### [facility] [address] [place] [address] Dr. Mirza Sadler NEUT # 12.2 103/ul Critically high 1.4-6.5 [facility] Comment on above: Performed By: #### E RUR #### [facility] [address] [place] [address] Dr. Mirza Sadler Neutrophils/100 WBC (Bld) 89.6 % Critically high 43.0-75.0 [facility] Comment on above: Performed By: #### E RUR #### [facility] [address] [place] [address] Dr. Mirza Sadler Platelet mean volume (Bld) [Entitic vol] 9.7 fL Normal 9.5-13.5 [facility] Comment on above: Performed By: #### E RUR #### [facility] [address] [place] [address] Dr. Mirza Sadler PLT 183 103/ul Normal 150-450 [facility] Comment on above: Performed By: #### E RUR #### [facility] [address] [place] [address] Dr. Mirza Sadler RBC 4.75 106/ul Normal 4.70-6.10 [facility] Comment on above: Performed By: #### E RUR #### [facility] [address] [place] [address] Dr. Mirza Sadler WBC 13.7 103/ul Critically high 4.0-11.0 [facility] Comment on above: Performed By: #### E RUR #### [facility] [address] [place] [address] Dr. Mirza Sadler CULTURE BLOODon 10-27-2021 Microscopic examination of blood, culture Culture Observations: NO GROWTH AT 5 DAYS. Normal [facility] Comment on above: Performed By: #### B LDCX2 #### [facility] [address] [place] [address] Dr. Mirza Sadler Performed By: #### H STROPN #### [facility] [address] [place] [address] Dr. Mirza Sadler Covid-19 PCR ([facility])on 09-30 SARS-CoV-2 (COVID-19) RNA RAMO+probe Ql (Unsp spec) Not detected Normal NOT DETECTED [facility] Comment on above: Result Comment: When [...] for this test is supported by the [place] of Health and Human Service's declaration that [...] Performed By: #### P T, PTT #### [facility] [address] [place] [address] Dr. Mirza Sadler ER URINE PROFILEon Bilirubin Ql (U) Negative Normal NEGATIVE [facility] Comment on above: Performed By: #### H STROPN #### [facility] [address] [place] [address] Dr. Mirza Sadler Clarity (U) CLEAR Normal CLEAR [facility] Comment on above: Performed By: #### H STROPN #### [facility] [address] [place] [address] Dr. Mirza Sadler Color (U) YELLOW Normal YELLOW [facility] Comment on above: Performed By: #### H STROPN #### [facility] [address] [place] [address] Dr. Mirza Sadler ERUAHD A micrscopic examina tion will be performed if indicated. Normal [facility] Comment on above: Performed By: #### H STROPN #### [facility] [address] [place] [address] Dr. Mirza Sadler Glucose Ql (U) >1000 Abnormal NEGATIVE [facility] Comment on above: Performed By: #### H STROPN #### [facility] [address] [place] [address] Dr. Mirza Sadler Hemoglobin Ql (U) Negative Normal NEGATIVE [facility] Comment on above: Performed By: #### H STROPN #### [facility] [address] [place] [address] Dr. Mirza Sadler Ketones Ql (U) TRACE Abnormal NEGATIVE [facility] Comment on above: Performed By: #### H STROPN #### [facility] [address] [place] [address] Dr. Mirza Sadler LEUKOCYTES Negative Normal NEGATIVE [facility] Comment on above: Performed By: #### H STROPN #### [facility] [address] [place] [address] Dr. Mirza Sadler Nitrite Ql (U) Negative Normal NEGATIVE [facility] Comment on above: Performed By: #### H STROPN #### [facility] [address] [place] [address] Dr. Mirza Sadler pH (U) 5.5 [pH] Normal 5-9 [facility] Comment on above: Performed By: #### H STROPN #### [facility] [address] [place] [address] Dr. Mirza Sadler SPEC GRAVITY 1.010 Normal 1.005-<=1. 025 [facility] Comment on above: Performed By: #### H STROPN #### [facility] [address] [place] [address] Dr. Mirza Sadler UA PROTEIN Negative Normal NEGATIVE/ TRACE [facility] Comment on above: Performed By: #### H STROPN #### [facility] [address] [place] [address] Dr. Mirza Sadler UR MICRO IND NOT INDICATED Normal [facility] Comment on above: Performed By: #### H STROPN #### [facility] [address] [place] [address] Dr. iMrza Sadler Urobilinogen Qn (U) 0.2 {Luisito'U}/dL Normal 0.2 - 1. 0 [facility] Comment on above: Performed By: #### H STROPN #### [facility] [address] [place] [address] Dr. Mirza Sadler INFLUENZA A AND B AGon 10-27 INFLUANEGH SEE BELOW Normal [facility] Comment on above: Result Comment: Nega tive for Flu A protein angiten. Infection due to Flu A cannot be ruled out. Flu A angiten in the sample may be below the detection limit of the test. Performed By: #### B WELDING TESTER #### [facility] [address] [place] [address] Dr. Mirza Sadler INFLUBNEGH SEE BELOW Normal [facility] Comment on above: Result Comment: Nega tive for Flu B protein antigen. Infection due to Flu B cannot be ruled out. Flu B antigen in the sample may be below the detection limit of the test. Performed By: #### B WELDING TESTER #### [facility] [address] [place] [address] Dr. Mirza Sadler INFLUENZA A AG Negative Normal NEGATIVE SEE COMMENT [facility] Comment on above: Performed By: #### B WELDING TESTER #### [facility] [address] [place] [address] Dr. Mirza Sadler INFLUENZA B AG Negative Normal NEGATIVE SEE COMMENT [facility] Comment on above: Performed By: #### B WELDING TESTER #### [facility] [address] [place] [address] Dr. Mirza Sadler INTERNAL CONTROLS Within Normal Limits Normal Wi thin Normal Limits [facility] Comment on above: Performed By: #### B WELDING TESTER #### [facility] [address] [address] [address] Mirza Sadler LACTATE/LACTIC ACIDon 2021 Lactate [Moles/Vol] 1.8 mmol/L Normal 0.4-1.9 [facility] Comment on above: Performed By: #### C MP, CMADM #### [facility] [address] [place] [address] Dr. Mirza Sadler LIPASEon 10-27-2021 Lipase [Catalytic activity/Vol] 87.0 U/L Normal 73.0-393.0 [facility] Comment on above: Performed By: #### P T, PTT #### [facility] [address] [place] [address] Dr. Mirza Sadler PH VENOUS BLOODon 10-27-2021 PCO2 VENOUS 37.6 mmHg Critically low 40.0-52.0 [facility] Comment on above: Performed By: #### P T, PTT #### [facility] [address] [place] [address] Dr. Mirza Sadler pH VENOUS 7.422 Normal 7.330-7.43 0 [facility] Comment on above: Performed By: #### P T, PTT #### [facility] [address] [place] [address] Dr. Mirza Sadler PROF 14(COMP METB)on 022 Albumin [Mass/Vol] 4.2 g/dL Normal 3.4-5.0 [facility] Comment on above: Performed By: #### P T, PTT #### [facility] [address] [place] [address] Dr. Mirza Sadler Albumin/Globulin [Mass ratio] 1.3 {ratio} Normal [facility] Comment on above: Performed By: #### P T, PTT #### [facility] [address] [place] [address] Dr. Mirza Sadler ALP [Catalytic activity/Vol] 121 U/L Critically high 46-116 [facility] Comment on above: Performed By: #### P T, PTT #### [facility] [address] [address] [address] Mirza Sadler ALT [Catalytic activity/Vol] 22 U/L Normal 16-63 [facility] Comment on above: Performed By: #### P T, PTT #### [facility] [address] [address] [address] Mirza Sadler Anion gap [Moles/Vol] 16.0 mmol/L Normal [facility] Comment on above: Performed By: #### P T, PTT #### [facility] [address] [place] [address] Dr. Mirza Sadler AST [Catalytic activity/Vol] 18 U/L Normal 15-37 [facility] Comment on above: Performed By: #### P T, PTT #### [facility] [address] [place] [address] Dr. Mirza Sadler Bilirubin [Mass/Vol] 1.3 mg/dL Critically high 0.2-1.0 [facility] Comment on above: Performed By: #### P T, PTT #### [facility] [address] [place] [address] Dr. Mirza Sadler Calcium [Mass/Vol] 8.9 mg/dL Normal 8.5-10.1 [facility] Comment on above: Performed By: #### P T, PTT #### [facility] [address] [place] [address] Dr. Mirza Sadler Chloride [Moles/Vol] 105 mmol/L Normal 98-107 [facility] Comment on above: Performed By: #### P T, PTT #### [facility] [address] [place] [address] Dr. Mirza Sadler CO2 [Moles/Vol] 23.7 mmol/L Normal 21.0-32.0 [facility] Comment on above: Performed By: #### P T, PTT #### [facility] [address] [place] [address] Dr. Mirza Sadler Creatinine [Mass/Vol] 1.79 mg/dL Critically high 0.70-1.30 [facility] Comment on above: Performed By: #### P T, PTT #### [facility] [address] [address] [address] Mirza Sadler EGFR-AF SAUDI ARABIAN 46 mL/min/1.73m2 Critically low >=60 [facility] Comment on above: Performed By: #### P T, PTT #### [facility] [address] [address] [address] Mirza Sadler EGFR-NON AF SAUDI ARABIAN 38 mL/min/1.73m2 Critically low >=60 [facility] Comment on above: Performed By: #### P T, PTT #### [facility] [address] [place] [address] Dr. Mirza Sadler Globulin (S) [Mass/Vol] 3.3 g/dL Normal [facility] Comment on above: Performed By: #### P T, PTT #### [facility] [address] [address] [address] Mirza Sadler Glucose [Mass/Vol] 195 mg/dL Critically high 74-106 [facility] Comment on above: Performed By: #### P T, PTT #### [facility] [address] [place] [address] Dr. Mirza Sadler Potassium [Moles/Vol] 3.7 mmol/L Normal 3.5-5.1 [facility] Comment on above: Performed By: #### P T, PTT #### [facility] [address] [address] [address] Mirza Sadler Protein [Mass/Vol] 7.5 g/dL Normal 6.4-8.2 [facility] Comment on above: Performed By: #### P T, PTT #### [facility] [address] [address] [address] Mirza Sadler Sodium [Moles/Vol] 141 mmol/L Normal 136-145 [facility] Comment on above: Performed By: #### P T, PTT #### [facility] [address] [place] [address] Dr. Mirza Sadler Urea nitrogen [Mass/Vol] 25.0 mg/dL Critically high 7.0-18.0 [facility] Comment on above: Performed By: #### P T, PTT #### [facility] [address] [place] [address] Dr. Mirza Sadler Urea nitrogen/Creatinine [Mass ratio] 14.0 mg/mg Normal [facility] Comment on above: Performed By: #### P T, PTT #### [facility] [address] [place] [address] Dr. Mirza Sadler PROTIMEon 10-27-2021 INR Coag (PPP) [Relative time] 1.07 {INR} Normal [facility] Comment on above: Performed By: #### P T, PTT #### [facility] [address] [place] [address] Dr. Mirza Sadler INR GUIDELINES SEE BELOW Normal [facility] Comment on above: Result Comment: RIVKA RED INR: 2.0 - 3.0 CONDITIONS NOT LISTED BELOW 2.5 - 3.5 FOR PROSTHETIC HEART VALVE REPLACEMENT 2.5 - 3.5 RECURRENT THROMBOSIS Performed By: #### P T, PTT #### [facility] [address] [place] [address] Dr. Mirza Sadler PT Coag (PPP) [Time] 11.5 s Normal 9.0-11.6 [facility] Comment on above: Performed By: #### P T, PTT #### [facility] [address] [place] [address] Dr. Mirza Sadler PTTon 10-27-2021 aPTT Coag (Bld) [Time] 25.1 s Normal 22.3-36.2 [facility] Comment on above: Performed By: #### P T, PTT #### [facility] [address] [place] [address] Dr. Mirza Sadler XR CHEST 1 Von [...] by: GAGAN CAREY Date: 2021-10-27 10:21 Normal [facility] 10-20-2021 CNPN Telephone ([facility]AS[facility]) -- LANI LIZAMA ([id number]) 1950 M Date Time Provider Department 10/20/21 ABDON WALKER During your visit today, we recorded the following information about you: Vee Day 10/20/2021 9:43 AM Signed New CBC order. Vee Dya Allergies As of Date: 10/20/2021 Noted Allergy Reaction Nkda [Other] 07/28/2018 16 - Unknown Comments: Received name: Dayana Date Reviewed: 10/20/2021 Reviewed by: Vickie Barrera PA-C - Fully Assessed Reason for Visit: Lab Orders [1688] Primary Visit Diagnosis:Monoclonal gammopathy [D47.2] Order(s):CBC + DIFF [SQCBCDIF] Order #: [id number] FUTURE Prescriptions as of 10/24/2021 - famotidine [...] Status:Closed by VEE DAY on 10/24/21 Normal [facility] RAD - CT Reporton 10-06-2021 RAD - CT Report [id number]:127 Normal [facility] CT ABD/PELVIS WO CONon 10-03 CT ABD/PELVIS [...] HIGINIO FLANAGAN Date: 2021-10-03 16:29 Normal [facility] Ambulatory Visit Summaryon 0 09-29-2021 Ambulatory [...] RLQ ASHD (arteriosclerotic heart disease) 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 Mirza Sadler Albumin/Globulin [Mass ratio] 1.2 {ratio} Normal [facility] Comment on above: Performed By: #### P T, PTT #### [facility] [address] [address] [address] Mirza Sadler ALP [Catalytic activity/Vol] 132 U/L Critically high 46-116 [facility] Comment on above: Performed By: #### P T, PTT #### [facility] [address] [address] [address] Mirza Sadler ALT [Catalytic activity/Vol] 30 U/L Normal 16-63 [facility] Comment on above: Performed By: #### P T, PTT #### [facility] [address] [place] [address] Dr. Mirza Sadler Anion gap [Moles/Vol] 10.7 mmol/L Normal [facility] Comment on above: Performed By: #### P T, PTT #### [facility] [address] [address] [address] Mirza Sadler AST [Catalytic activity/Vol] 21 U/L Normal 15-37 [facility] Comment on above: Performed By: #### P T, PTT #### [facility] [address] [place] [address] Dr. Mirza Sadler Bilirubin [Mass/Vol] 0.7 mg/dL Normal 0.2-1.0 [facility] Comment on above: Performed By: #### P T, PTT #### [facility] [address] [place] [address] Dr. Mirza Sadler Calcium [Mass/Vol] 9.0 mg/dL Normal 8.5-10.1 [facility] Comment on above: Performed By: #### P T, PTT #### [facility] [address] [place] [address] Dr. Mirza Sadler Chloride [Moles/Vol] 106 mmol/L Normal 98-107 [facility] Comment on above: Performed By: #### P T, PTT #### [facility] [address] [place] [address] Dr. Mirza Sadler CO2 [Moles/Vol] 27.5 mmol/L Normal 21.0-32.0 [facility] Comment on above: Performed By: #### P T, PTT #### [facility] [address] [place] [address] Dr. Mirza Sadler Creatinine [Mass/Vol] 1.77 mg/dL Critically high 0.70-1.30 [facility] Comment on above: Performed By: #### P T, PTT #### [facility] [address] [address] [address] Mirza Sadler EGFR-AF SAUDI ARABIAN 46 mL/min/1.73m2 Critically low >=60 [facility] Comment on above: Performed By: #### P T, PTT #### [facility] [address] [address] [address] Mirza Sadler EGFR-NON AF SAUDI ARABIAN 38 mL/min/1.73m2 Critically low >=60 [facility] Comment on above: Performed By: #### P T, PTT #### [facility] [address] [address] [address] Mirza Sadler Globulin (S) [Mass/Vol] 3.5 g/dL Normal [facility] Comment on above: Performed By: #### P T, PTT #### [facility] [address] [place] [address] Dr. Mirza Sadler Glucose [Mass/Vol] 135 mg/dL Critically high 74-106 [facility] Comment on above: Performed By: #### P T, PTT #### [facility] [address] [address] [address] Mirza Sadler Potassium [Moles/Vol] 4.2 mmol/L Normal 3.5-5.1 [facility] Comment on above: Performed By: #### P T, PTT #### [facility] [address] [address] [address] Mirza Sadler Protein [Mass/Vol] 7.6 g/dL Normal 6.4-8.2 [facility] Comment on above: Performed By: #### P T, PTT #### [facility] [address] [address] [address] Mirza Sadler Sodium [Moles/Vol] 140 mmol/L Normal 136-145 [facility] Comment on above: Performed By: #### P T, PTT #### [facility] [address] [address] [address] Mirza Sadler Urea nitrogen [Mass/Vol] 17.0 mg/dL Normal 7.0-18.0 [facility] Comment on above: Performed By: #### P T, PTT #### [facility] [address] [place], [place] [address] Dr. Mirza Sadler Urea nitrogen/Creatinine [Mass ratio] 9.6 mg/mg Normal [facility] Comment on above: Performed By: #### P T, PTT #### [facility] [address] [place], [place] [address] Dr. Mirza Sadler US SINGLE QUAD RT [...] HIGINIO FLANAGAN Date: 2021-08-27 08:40 Normal [facility] A1C HEMOGLOBINon 07-17-2021 HbA1c (Bld) [Mass fraction] 6.9 % [employer] Other Glucose - FINGER STICKon Glucose [Mass/Vol] 180 mg/dL [employer] Other HbA1c (Bld) [Mass fraction]o n 07-17-2021 A1C HEMOGLOBIN [facility] [employer] Other A1C with Estimated Average G luon 04-10-2021 HbA1c (Bld) [Mass fraction] 6.4 % [employer] Other HbA1c (Bld) [Mass fraction] 243 % [employer] Other Glucoseon 01-10-2022 Glucose [Mass/Vol] 243 mg/dL [facility] [employer] Other A1C HEMOGLOBINon 01-03-2021 HbA1c (Bld) [Mass fraction] 6.6 % [facility] [employer] Other Glucose - FINGER STICKon Glucose [Mass/Vol] 142 mg/dL [facility] [employer] Other HbA1c (Bld) [Mass fraction]o n 01-03-2021 A1C HEMOGLOBIN [facility] [employer] Other CNPNon 10-27-2020 CNPN Telephone ([facility]) -- LANI LIZAMA ([id number]) 1950 Date Time Provider Department 10/27/20 ANGELINE [...] Status:Closed by ANGELINE WARE on 10/28/20 Normal [facility] Cardiovascular Lab Reporton 10-16-2018 Cardiovascular Lab Report [facility] Patient Name: Lani Lizama [facility] MR #: [id number] Physician: Pinky Bishop Department of M.D. Medicine Service Date: 10/15/2018 Division of Birthdate: 1950 Cardiology Room #: [id number] Adult Cardiovascular Services [address] [place] [address] Cardiovascular Laboratory Report FINAL IMPRESSIONS: 1. Severe three-vessel pilot station coronary artery disease. 2. Sjsv-my-gxoy bypass grafts patent. 3. Mild in-stent restenosis [...] 4. Follow up with me in the [facility] in the next 4-6 weeks. 5. [...] guidance and using a micropuncture kit. A 6-Tunisian Glidesheath was inserted without difficulty. Coronary angiography [...] of the vessel. There is evidence of uomd-ue-clesz collaterals. The distal vessel is supplied via [...] is a long stented segment in the uupidvgc-yu-lsobrm portion of the vessel with 30% in-stent restenosis. The vessel distal to the touchdown shows caliber reduction and no discrete stenosis. There is diffuse disease in the branches. Saphenous vein graft to the posterior descending artery. This is widely patent. It shows an extensive stented segment from ghzlkdmf-kl-cosexitcta of the vessel. There is a 40%-50% [...] P Pinky Bishop M.D. Date Dict: 10/15/2018/11:10 A/Pinky Bishop M.D. Date Trans: 10/16/2018 05:01 A/mmo [id number] cc: Harley Crespo D.O. [address] [place] [address] [place] [id number] Normal [facility] BASIC METABOLIC PANELon 07- Calcium [Mass/Vol] 8.9 mg/dL Normal 8.6-10.3 [facility] Comment on above: Order Comment: No: D o not add to previous draw Performed By: #### 1 69, [id number] #### [facility] [address] [place] [address], [place] Chloride [Moles/Vol] 110 mmol/L High 98-107 [facility] Comment on above: Order Comment: No: D o not add to previous draw Performed By: #### 1 69, 30775 #### [facility] [address] [place] [address], [place] CO2 [Moles/Vol] 26 mmol/L Normal 21-31 [facility] Comment on above: Order Comment: No: D o not add to previous draw Performed By: #### 1 69, 93749 #### [facility] [address] [place] [address], [place] Creatinine [Mass/Vol] 1.52 mg/dL High 0.70-1.30 [facility] Comment on above: Order Comment: No: D o not add to previous draw Performed By: #### 1 69, [id number] #### [facility] [address] [place] [address], [place] GFR/1.73 sq M predicted among blacks MDRD (S/P/Bld) [Vol rate/Area] 56 ml/min/1.73sq m Abnormal >60 [facility] Comment on above: Order Comment: No: D o not add to previous draw Performed By: #### 1 69, 45563 #### [facility] [address] [place] [address], [facility] GFR/1.73 sq M predicted among non-blacks MDRD (S/P/Bld) [Vol rate/Area] 46 ml/min/1.73sq m Abnormal >60 [facility] Comment on above: Order Comment: No: D o not add to previous draw Performed By: #### 1 69, 18569 #### [facility] [address] [place] [address], [facility] Glucose [Mass/Vol] 89 mg/dL Normal 70-100 [facility] Comment on above: Order Comment: No: D o not add to previous draw Performed By: #### 1 69, 93947 #### [facility] [address] [place] [address], [facility] Potassium [Moles/Vol] 3.9 mmol/L Normal 3.5-5.1 [facility] Comment on above: Order Comment: No: D o not add to previous draw Performed By: #### 1 69, 87766 #### [facility] [address] [facility] [place] [address], [facility] Sodium [Moles/Vol] 141 mmol/L Normal 136-145 [facility] Comment on above: Order Comment: No: D o not add to previous draw Performed By: #### 1 69, 77595 #### [facility] [address] [facility] [place] [address], [facility] Urea nitrogen [Mass/Vol] 19 mg/dL Normal 7-25 [facility] Comment on above: Order Comment: No: D o not add to previous draw Performed By: #### 1 69, 75941 #### [facility] [address] [facility] [place] [address], [facility] CBC W/DIFFon 10-15-2018 ABS BASOPHILS 0.1 10*3/uL Normal 0.0-0.2 [facility] Comment on above: Order Comment: No: D o not add to previous draw Performed By: #### 5 0103 #### [facility] [address] [facility] [address], [facility] ABS IMM GRANS 0.0 10*3/uL Normal 0.0-0.2 [facility] Comment on above: Order Comment: No: D o not add to previous draw Performed By: #### 5 0103 #### [facility] [address] [facility]. [place] [id number], [facility] ABS NEUTROPHILS 3.5 10*3/uL Normal 1.6-7.6 [facility] Comment on above: Order Comment: No: D o not add to previous draw Performed By: #### 5 0103 #### [facility] [address] [facility] [place] [address], [facility] Basophils/100 WBC (Bld) 0.8 % Normal 0.0-1.0 [facility] Comment on above: Order Comment: No: D o not add to previous draw Performed By: #### 5 0103 #### [facility] [address] [facility] [place] [address], [facility] Eosinophils (Bld) [#/Vol] 0.3 10*3/uL Normal 0.0-0.5 [facility] Comment on above: Order Comment: No: D o not add to previous draw Performed By: #### 5 0103 #### [facility] [address] [facility] [place] [address], [facility] Eosinophils/100 WBC (Bld) 3.9 % Normal 0.0-6.0 [facility] Comment on above: Order Comment: No: D o not add to previous draw Performed By: #### 5 0103 #### [facility] [address] [facility] [place] [address], [facility] Erythrocyte distribution width (RBC) [Ratio] 13.5 % Normal 11.5-15.0 [facility] Comment on above: Order Comment: No: D o not add to previous draw Performed By: #### 5 0103 #### [facility] [address] [place] [address], [facility] Hematocrit (Bld) [Volume fraction] 39.7 % Normal 39.0-50.0 [facility] Comment on above: Order Comment: No: D o not add to previous draw Performed By: #### 5 0103 #### [facility] [address] [place] [address], [facility] Hemoglobin (Bld) [Mass/Vol] 13.0 g/dL Normal 13.0-17.0 [facility] Comment on above: Order Comment: No: D o not add to previous draw Performed By: #### 5 0103 #### [facility] [address] [facility] [address], [facility] IMMATURE GRANS 0.3 % Normal 0.0-1.0 [facility] Comment on above: Order Comment: No: D o not add to previous draw Performed By: #### 5 0103 #### [facility] [address] [facility] [place] [address], [facility] Lymphocytes (Bld) [#/Vol] 1.9 10*3/uL Normal 1.2-4.0 [facility] Comment on above: Order Comment: No: D o not add to previous draw Performed By: #### 5 3 #### [facility] [address] [facility] [place] [address], [facility] Lymphocytes/100 WBC (Bld) 30.1 % Normal 20.0-45.0 [facility] Comment on above: Order Comment: No: D o not add to previous draw Performed By: #### 5 0103 #### [facility] [address] [facility]. [place] [id number], [facility] MCH (RBC) [Entitic mass] 30.0 pg Normal 27.0-33.0 [facility] Comment on above: Order Comment: No: D o not add to previous draw Performed By: #### 5 0103 #### [facility] [address] [facility]. [address] MCHC (RBC) [Mass/Vol] 32.7 g/dL Normal 32.0-35.0 [facility] Comment on above: Order Comment: No: D o not add to previous draw Performed By: #### 5 0103 #### [facility] [address] [place] [id number], [facility] MCV (RBC) [Entitic vol] 91.5 fL Normal 82.0-98.0 [facility] Comment on above: Order Comment: No: D o not add to previous draw Performed By: #### 5 0103 #### [facility] [address] [place] [address], [facility] Monocytes (Bld) [#/Vol] 0.7 10*3/uL Normal 0.1-1.0 [facility] Comment on above: Order Comment: No: D o not add to previous draw Performed By: #### 5 0103 #### [facility] [address] [place] [address], [facility] MONOS 10.7 % Normal 5.0-12.0 [facility] Comment on above: Order Comment: No: D o not add to previous draw Performed By: #### 5 0103 #### [facility] [address] [facility] [place] [address], [facility] Neutrophils/100 WBC (Bld) 54.2 % Normal 40.0-72.0 [facility] Comment on above: Order Comment: No: D o not add to previous draw Performed By: #### 5 0103 #### [facility] [address] [place] [address], [facility] Nucleated RBC/100 WBC (Bld) [Ratio] 0 % Normal 0-0 [facility] Comment on above: Order Comment: No: D o not add to previous draw Performed By: #### 5 0103 #### [facility] [address] [place] [address], [facility] PLAT CNT 164 10*3/uL Normal 150-400 [facility] Comment on above: Order Comment: No: D o not add to previous draw Performed By: #### 5 0103 #### [facility] [address] RBC (Bld) [#/Vol] 4.34 10*6/uL Normal 4.20-5.70 [facility] Comment on above: Order Comment: No: D o not add to previous draw Performed By: #### 5 0103 #### [facility] [address] WBC (Bld) [#/Vol] 6.38 10*3/uL Normal 4.00-10.60 [facility] Comment on above: Order Comment: No: D o not add to previous draw Performed By: #### 5 0103 #### [facility] [address] MAGNESIUM BLOODon 10-15-2018 Magnesium [Mass/Vol] 2.0 mg/dL Normal 1.9-2.7 [facility] Comment on above: Order Comment: No: D o not add to previous draw Performed By: #### 1 0070, 94668 #### [facility] [address] PROTHROMBIN TIMEon 9 INR Coag (PPP) [Relative time] 1.11 {INR} Normal 0.91-1.16 [facility] Comment on above: Order Comment: [...] 1995;108:231S-246S. Performed By: #### 5 6101 #### [address] PT Coag (PPP) [Time] 14.3 s Normal 12.3-14.8 [facility] Comment on above: Order Comment: No: D o not add to previous draw Result Comment: ALL RESULTS MUST BE INTERPRETED WITH RESPECT TO BLOOD DRAWING ARTIFACT OR DILUTION ERROR OF ANTICOAGULANT AT THE TIME OF SAMPLING. Performed By: #### 5 6101 #### [address] POC GLUCOSE LABon 10-14-2018 Glucose [Mass/Vol] 180 mg/dL High 70-100 [facility] Comment on above: Performed By: #### 8 5499 #### [address] Cardiovascular Lab Reporton 02-25-2018 Cardiovascular Lab Report [facility] Patient Name: Lani Lizama [facility] MR #: [id number] Physician: Pinky Bishop Department of M.D. Medicine Service Date: 02/24/2018 Division of Birthdate: 1950 Cardiology Room #: [id number] Adult Cardiovascular Services [place] [address] Cardiovascular Laboratory Report FINAL IMPRESSIONS: 1. 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 2. Severe 3-vessel pilot station coronary artery disease. 3. 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 4. Wrhrtarn-fv-crzqwb systemic hypertension. RECOMMENDATIONS: 1. Aspirin 81 mg lifelong. 2. 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 3. Aggressive cardiovascular risk factor modification. 4. Optimization of medical management; high intensity statin therapy as tolerated, we will switch his Toprol-XL to Coreg 25 mg p.o. b.i.d., and angiotensin-converting enzyme inhibitor. 5. Follow up with me in the [facility] in the next 2-3 weeks. 6. Follow up with Dr. Crespo as scheduled. PROCEDURES: Limited femoral angiography, bilateral selective coronary angiography, saphenous vein graft angiography, angiography of the left internal mammary artery graft, limited angiography of the left subclavian, percutaneous balloon angioplasty, and Synergy drug-eluting stent placement to the saphenous vein graft to the obtuse marginal, placement of a 6-Tunisian MYNXGRIP closure device. METHODS: After risks, benefits, and alternatives were explained, written informed consent was obtained. The patient was prepped and draped in usual sterile fashion over both groins. Using 1% lidocaine solution, local infiltration anesthesia was achieved over the right groin. Using a micropuncture kit, access of the right common femoral artery was obtained. A 6-Tunisian 11 cm sheath was exchanged then without [...] to proceed with an interventional procedure. A 6-Tunisian JR4 guide catheter was advanced in and [...] the procedure. All catheters were removed. A 6-Tunisian MYNXGRIP closure device was deployed per protocol [...] is a 30% touchdown stenosis of the pilot station vessel. 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 Limited femoral angiography, this shows mild plaque and anatomy suitable for closure device. INDICATIONS: Unstable angina. Electronically Signed by: Pinky Bishop M.D. 03/06/2018 12:15 P Pinky Bishop M.D. Date Dict: 02/24/2018/01:39 P/Pinky Bishop M.D. Date Trans: 02/25/2018 02:12 Brandie [id number] cc: Harley Crespo D.O. [address] [place] [id number] Normal [facility] POC GLUCOSE LABon 02-25-2018 Glucose [Mass/Vol] 150 mg/dL High 70-100 [facility] Comment on above: Performed By: #### 8 5499 #### [facility] [address] POC GLUCOSE LABon 02-24-2018 Glucose [Mass/Vol] 192 mg/dL High 70-100 [facility] Comment on above: Performed By: #### 8 5499 #### [facility] [address] [place] [address], [facility] Glucose [Mass/Vol] 186 mg/dL High 70-100 [facility] Comment on above: Performed By: #### 8 5499 #### [facility] [address] Vital Signs Date Time Vital Sign Value Performing Clinician Facility 04-30-2024 09:42-0500 Body height 170.18 cm [facility] 04-30-2024 09:42-0500 Body mass index (BMI) [Ratio] 27.9 kg/m2 [facility] 04-30-2024 09:42-0500 Body weight 80.96 kg [facility] 04-30-2024 09:42-0500 Diastolic blood pressure 80 mm[Hg] [facility] 04-30-2024 09:42-0500 Heart rate 81 /min [facility] 04-30-2024 09:42-0500 Respiratory rate 18 /min [facility] 04-30-2024 09:42-0500 SaO2% (BldA) [Mass fraction] 98 % [facility] 04-30-2024 09:42-0500 Systolic blood pressure 134 mm[Hg] [facility] 04-16-2024 08:24-0500 Body height 170.18 cm [facility] 04-16-2024 08:24-0500 Body mass index (BMI) [Ratio] 28.2 kg/m2 [facility] 04-16-2024 08:24-0500 Body weight 81.76 kg [facility] 04-16-2024 08:24-0500 Diastolic blood pressure 80 mm[Hg] [facility] 04-16-2024 08:24-0500 Heart rate 84 /min [facility] 04-16-2024 08:24-0500 Respiratory rate 12 /min [facility] 04-16-2024 08:24-0500 SaO2% (BldA) [Mass fraction] 97 % [facility] 04-16-2024 08:24-0500 Systolic blood pressure 137 mm[Hg] [facility] 04-02-2024 11:44-0500 Body height 170.2 cm Kenneth RICHARDSM Work Phone: [facility] 04-02-2024 11:44-0500 Body mass index (BMI) [Ratio] 26.78 kg/m2 Kenneth Tavera DPM Work Phone: [facility] 04-02-2024 11:44-0500 Body weight 77.56 kg Kenneth Tavera DPM Work Phone: [facility] 04-02-2024 11:44-0500 Respiratory rate 18 /min Kenneth Liang DPM Work Phone: [facility] 02-24-2024 09:46-0500 Body height 170.18 cm [facility] 02-24-2024 09:46-0500 Body mass index (BMI) [Ratio] 27.1 kg/m2 [facility] 02-24-2024 09:46-0500 Body weight 78.47 kg [facility] 02-24-2024 09:46-0500 Diastolic blood pressure 68 mm[Hg] [facility] 02-24-2024 09:46-0500 Heart rate 80 /min [facility] 02-24-2024 09:46-0500 SaO2% (BldA) [Mass fraction] 97 % [facility] 02-24-2024 09:46-0500 Systolic blood pressure 110 mm[Hg] [facility] 01-23-2024 11:29-0400 Body height 170.2 cm Kenneth Tavera DPM Work Phone: [facility] 01-23-2024 11:29-0400 Body mass index (BMI) [Ratio] 26.78 kg/m2 Kenneth Tavera DPM Work Phone: [facility] 01-23-2024 11:29-0400 Body weight 77.56 kg Kenneth Liang DPM Work Phone: [facility] 01-23-2024 11:29-0400 Diastolic blood pressure 82 mm[Hg] Kenneth Tavera DPM Work Phone: [facility] 01-23-2024 11:29-0400 Heart rate 88 /min Kenneth Tavera DPM Work Phone: [facility] 01-23-2024 11:29-0400 Systolic blood pressure 128 mm[Hg] Kenneth Tavera DPM Work Phone: [facility] 01-23-2024 09:05-0400 Body height 170.18 cm [facility] 01-23-2024 09:05-0400 Body mass index (BMI) [Ratio] 27.3 kg/m2 [facility] 01-23-2024 09:05-0400 Body weight 79.37 kg [facility] 01-23-2024 09:05-0400 Diastolic blood pressure 71 mm[Hg] [facility] 01-23-2024 09:05-0400 Heart rate 78 /min [facility] 01-23-2024 09:05-0400 Respiratory rate 18 /min [facility] 01-23-2024 09:05-0400 SaO2% (BldA) [Mass fraction] 98 % [facility] 01-23-2024 09:05-0400 Systolic blood pressure 106 mm[Hg] [facility] 01-07-2024 08:26-0400 Body height 170.18 cm [facility] 01-07-2024 08:26-0400 Body mass index (BMI) [Ratio] 27.2 kg/m2 [facility] 01-07-2024 08:26-0400 Body temperature 96.7 [degF] [facility] 01-07-2024 08:26-0400 Body weight 78.98 kg [facility] 01-07-2024 08:26-0400 Diastolic blood pressure 77 mm[Hg] [facility] 01-07-2024 08:26-0400 Heart rate 91 /min [facility] 01-07-2024 08:26-0400 Respiratory rate 16 /min [facility] 01-07-2024 08:26-0400 SaO2% (BldA) [Mass fraction] 97 % [facility] 01-07-2024 08:26-0400 Systolic blood pressure 123 mm[Hg] [facility] 12-12-2023 08:25-0400 Body height 170.18 cm [facility] 12-12-2023 08:25-0400 Body mass index (BMI) [Ratio] 27.4 kg/m2 [facility] 12-12-2023 08:25-0400 Body weight 79.49 kg [facility] 12-12-2023 08:25-0400 Diastolic blood pressure 79 mm[Hg] [facility] 12-12-2023 08:25-0400 Heart rate 80 /min [facility] 12-12-2023 08:25-0400 Respiratory rate 12 /min [facility] 12-12-2023 08:25-0400 Systolic blood pressure 127 mm[Hg] [facility] 10-17-2023 09:21-0400 Body height 170.18 cm [facility] 10-17-2023 09:21-0400 Body mass index (BMI) [Ratio] 28.2 kg/m2 [facility] 10-17-2023 09:21-0400 Body weight 81.81 kg [facility] 10-17-2023 09:21-0400 Diastolic blood pressure 79 mm[Hg] [facility] 10-17-2023 09:21-0400 Heart rate 70 /min [facility] 10-17-2023 09:21-0400 Respiratory rate 18 /min [facility] 10-17-2023 09:21-0400 SaO2% (BldA) [Mass fraction] 97 % [facility] 10-17-2023 09:21-0400 Systolic blood pressure 133 mm[Hg] [facility] 08-12-2023 08:37-0400 Body height 170.18 cm [facility] 08-12-2023 08:37-0400 Body mass index (BMI) [Ratio] 27.6 kg/m2 [facility] 08-12-2023 08:37-0400 Body weight 79.88 kg [facility] 08-12-2023 08:37-0400 Diastolic blood pressure 84 mm[Hg] [facility] 08-12-2023 08:37-0400 Heart rate 82 /min [facility] 08-12-2023 08:37-0400 Respiratory rate 12 /min [facility] 08-12-2023 08:37-0400 Systolic blood pressure 134 mm[Hg] [facility] 07-02-2023 08:54-0400 Body height 170.18 cm [facility] 07-02-2023 08:54-0400 Body mass index (BMI) [Ratio] 27.3 kg/m2 [facility] 07-02-2023 08:54-0400 Body temperature 96.5 [degF] [facility] 07-02-2023 08:54-0400 Body weight 79.09 kg [facility] 07-02-2023 08:54-0400 Diastolic blood pressure 79 mm[Hg] [facility] 07-02-2023 08:54-0400 Heart rate 87 /min [facility] 07-02-2023 08:54-0400 Respiratory rate 18 /min [facility] 07-02-2023 08:54-0400 SaO2% (BldA) [Mass fraction] 96 % [facility] 07-02-2023 08:54-0400 Systolic blood pressure 120 mm[Hg] [facility] 06-18-2023 10:51-0400 Body height 170.18 cm [facility] 06-18-2023 10:51-0400 Body mass index (BMI) [Ratio] 26.6 kg/m2 [facility] 06-18-2023 10:51-0400 Body weight 77.11 kg [facility] 06-18-2023 10:51-0400 Diastolic blood pressure 84 mm[Hg] [facility] 06-18-2023 10:51-0400 Heart rate 95 /min [facility] 06-18-2023 10:51-0400 Respiratory rate 18 /min [facility] 06-18-2023 10:51-0400 SaO2% (BldA) [Mass fraction] 97 % [facility] 06-18-2023 10:51-0400 Systolic blood pressure 127 mm[Hg] [facility] 05-03-2023 09:30-0500 Body height 170.18 cm DO Harley Ball Work Phone: [facility] 05-03-2023 09:30-0500 Body weight 77.29 kg DO Harley Ball Work Phone: [facility] 05-03-2023 09:30-0500 Diastolic blood pressure 85 mm[Hg] DO Harley Ball Work Phone: [facility] 05-03-2023 09:30-0500 Systolic blood pressure 126 mm[Hg] DO Harley Ball Work Phone: [facility] 03-12-2023 11:15-0500 Body height 170.18 cm Tondra Mapus Other [facility] 03-12-2023 11:15-0500 Body mass index (BMI) [Ratio] 27.03 kg/m2 Tondra Mapus Other [employer] [facility] [employer] Other 03-12-2023 11:15-0500 Body weight 78.29 kg Tondra Mapus Other [facility] 03-12-2023 11:15-0500 Diastolic blood pressure 79 mm[Hg] Tondra Mapus Other [facility] 03-12-2023 11:15-0500 Respiratory rate 18 /min Tondra Mapus Other [employer] Other 03-12-2023 11:15-0500 SaO2% (BldA) [Mass fraction] 98 % Tondra Mapus Other [employer] Other 03-12-2023 11:15-0500 Systolic blood pressure 128 mm[Hg] Tondra Mapus Other [facility] 01-07-2023 10:00-0400 Body height 170.18 cm Kingsley Latisha Other [employer] Other 01-07-2023 10:00-0400 Body mass index (BMI) [Ratio] 27 kg/m2 Kingsley Latisha Other [employer] Other 01-07-2023 10:00-0400 Body temperature 97.7 [degF] Kingsley Latisha Other [employer] Other 01-07-2023 10:00-0400 Body weight 78.2 kg Kingsley Latisha Other [employer] Other 01-07-2023 10:00-0400 Diastolic blood pressure 73 mm[Hg] Kingsley Latisha Other [employer] Other 01-07-2023 10:00-0400 Respiratory rate 16 /min Kingsley Latisha Other [employer] Other 01-07-2023 10:00-0400 SaO2% (BldA) [Mass fraction] 98 % Kingsley Latisha Other [employer] Other 01-07-2023 10:00-0400 Systolic blood pressure 108 mm[Hg] Kingsley Latisha Other [facility] Other 12-31-2022 09:30-0400 Body height 170.18 cm Harley Ball Other [facility] Other 12-31-2022 09:30-0400 Body mass index (BMI) [Ratio] 27.03 kg/m2 Harley Ball Other [facility] Other 12-31-2022 09:30-0400 Body weight 78.29 kg Harley Ball Other [facility] Other 12-31-2022 09:30-0400 Diastolic blood pressure 69 mm[Hg] Harley Ball Other [facility] Other 12-31-2022 09:30-0400 Respiratory rate 16 /min Harley Ball Other [facility] Other 12-31-2022 09:30-0400 Systolic blood pressure 102 mm[Hg] Harley Ball Other [facility] Other 08-31-2022 08:45-0400 Body height 170.18 cm Harley Ball Other [facility] Other 08-31-2022 08:45-0400 Body mass index (BMI) [Ratio] 26.72 kg/m2 Harley Ball Other [facility] Other 08-31-2022 08:45-0400 Body weight 77.38 kg Harley Ball Other [facility] Other 08-31-2022 08:45-0400 Diastolic blood pressure 69 mm[Hg] Harley Ball Other [facility] Other 08-31-2022 08:45-0400 Respiratory rate 12 /min Harley Ball Other [facility] Other 08-31-2022 08:45-0400 Systolic blood pressure 102 mm[Hg] Harley Ball Other [facility] Other 07-02-2022 10:40-0400 Body height 170.18 cm Kingsley Latisha Other [facility] Other 07-02-2022 10:40-0400 Body mass index (BMI) [Ratio] 27.69 kg/m2 Kingsley Latisha Other [facility] Other 07-02-2022 10:40-0400 Body temperature 96.4 [degF] Kingsley Latisha Other [facility] Other 07-02-2022 10:40-0400 Body weight 80.2 kg Kingsley Latisha Other [facility] Other 07-02-2022 10:40-0400 Diastolic blood pressure 71 mm[Hg] Kingsley Latisha Other [facility] Other 07-02-2022 10:40-0400 Respiratory rate 16 /min Kingsley Latisha Other [facility] Other 07-02-2022 10:40-0400 SaO2% (BldA) [Mass fraction] 97 % Kingsley Latisha Other [facility] Other 07-02-2022 10:40-0400 Systolic blood pressure 115 mm[Hg] Kingsley Latisha Other [facility] Other 06-28-2022 09:30-0400 Body height 170.18 cm Harley Ball Other [facility] Other 06-28-2022 09:30-0400 Body mass index (BMI) [Ratio] 27.16 kg/m2 Harley Ball Other [facility] Other 06-28-2022 09:30-0400 Body weight 78.65 kg Harley Ball Other [facility] Other 06-28-2022 09:30-0400 Diastolic blood pressure 66 mm[Hg] Harley Ball Other [facility] Other 06-28-2022 09:30-0400 Respiratory rate 12 /min Harley Ball Other [facility] Other 06-28-2022 09:30-0400 Systolic blood pressure 115 mm[Hg] Harley Ball Other [facility] Other 06-26-2022 08:45-0400 Body height 170.18 cm Tondra Mapus Other [facility] Other 06-26-2022 08:45-0400 Body mass index (BMI) [Ratio] 27.75 kg/m2 Tondra Mapus Other [facility] Other 06-26-2022 08:45-0400 Body weight 80.38 kg Tondra Mapus Other [facility] Other 06-26-2022 08:45-0400 Diastolic blood pressure 61 mm[Hg] Tondra Mapus Other [facility] Other 06-26-2022 08:45-0400 Respiratory rate 16 /min Tondra Mapus Other [facility] Other 06-26-2022 08:45-0400 SaO2% (BldA) [Mass fraction] 96 % Tondra Mapus Other [facility] Other 06-26-2022 08:45-0400 Systolic blood pressure 105 mm[Hg] Tondra Mapus Other [facility] Other 03-20-2022 09:15-0500 Body height 170.18 cm Tondra Mapus Other [facility] Other 03-20-2022 09:15-0500 Body mass index (BMI) [Ratio] 26.15 kg/m2 Tondra Mapus Other [facility] Other 03-20-2022 09:15-0500 Body weight 75.75 kg Tondra Mapus Other [facility] Other 03-20-2022 09:15-0500 Diastolic blood pressure 57 mm[Hg] Tondra Mapus Other [facility] Other 03-20-2022 09:15-0500 Respiratory rate 16 /min Tondra Mapus Other [facility] Other 03-20-2022 09:15-0500 SaO2% (BldA) [Mass fraction] 98 % Tondra Mapus Other [facility] Other 03-20-2022 09:15-0500 Systolic blood pressure 117 mm[Hg] Tondra Mapus Other [facility] Other 01-17-2022 11:45-0400 Body height 170.18 cm DO Harley Ball Work Phone: [facility] 01-17-2022 11:22-0400 Diastolic blood pressure 68 mm[Hg] DO Harley Ball Work Phone: [facility] 01-17-2022 11:22-0400 Heart rate 60 /min DO Harley Ball Work Phone: [facility] 01-17-2022 11:22-0400 Systolic blood pressure 118 mm[Hg] DO Harley Ball Work Phone: [facility] 01-17-2022 11:05-0400 Body temperature 97.4 [degF] DO Harley Ball Work Phone: [facility] 01-17-2022 11:05-0400 Respiratory rate 18 /min DO Harley Ball Work Phone: [facility] 01-17-2022 11:05-0400 SaO2% (BldA) [Mass fraction] 95 % DO Harley Ball Work Phone: [facility] 01-17-2022 06:58-0400 Body weight 77.9 kg DO Harley Ball Work Phone: [facility] 01-15-2022 15:23-0400 Inhaled oxygen flow rate 2 L/min DO Harley Ball Work Phone: [facility] 12-18-2021 09:45-0400 Body height 170.18 cm Tondra Mapus Other [facility] Other 12-18-2021 09:45-0400 Body mass index (BMI) [Ratio] 27.25 kg/m2 Tondra Mapus Other [facility] Other 12-18-2021 09:45-0400 Body weight 78.93 kg Tondra Mapus Other [facility] Other 12-18-2021 09:45-0400 Diastolic blood pressure 65 mm[Hg] Tondra Mapus Other [facility] Other 12-18-2021 09:45-0400 Respiratory rate 16 /min Tondra Mapus Other [facility] Other 12-18-2021 09:45-0400 SaO2% (BldA) [Mass fraction] 97 % Tondra Mapus Other [facility] Other 12-18-2021 09:45-0400 Systolic blood pressure 133 mm[Hg] Tondra Mapus Other [facility] Other 09-29-2021 13:13-0400 Blood Pressure Location [facility] [place] 09-29-2021 13:13-0400 Diastolic blood pressure 74 mm[Hg] Gaagn NILL [facility] [place] 09-29-2021 13:13-0400 Heart rate 60 /min Gagan NILL [facility] [place] 09-29-2021 13:13-0400 Respiratory rate 16 /min Gagan NILL [facility] 09-29-2021 13:13-0400 Systolic blood pressure 138 mm[Hg] Gagan NILL [facility] 07-17-2021 09:45-0400 Body height 170.18 cm Tondra Mapus Other [facility] Other 07-17-2021 09:45-0400 Body mass index (BMI) [Ratio] 30.69 kg/m2 Tondra Mapus Other [facility] Other 07-17-2021 09:45-0400 Body weight 88.91 kg Tondra Mapus Other [facility] Other 07-17-2021 09:45-0400 Diastolic blood pressure 73 mm[Hg] Tondra Mapus Other [facility] Other 07-17-2021 09:45-0400 Respiratory rate 16 /min Tondra Mapus Other [facility] Other 07-17-2021 09:45-0400 SaO2% (BldA) [Mass fraction] 97 % Tondra Mapus Other [facility] Other 07-17-2021 09:45-0400 Systolic blood pressure 163 mm[Hg] Tondra Mapus Other [facility] Other 06-06-2021 10:20-0500 Body height 170.18 cm Kingsley Latisha Other [facility] Other 06-06-2021 10:20-0500 Body mass index (BMI) [Ratio] 30.29 kg/m2 Kingsley Latisha Other [facility] Other 06-06-2021 10:20-0500 Body temperature 96.1 [degF] Kingsley Latisha Other [facility] Other 06-06-2021 10:20-0500 Body weight 87.73 kg Kingsley Latisha Other [facility] Other 06-06-2021 10:20-0500 Diastolic blood pressure 70 mm[Hg] Kingsley Latisha Other [facility] Other 06-06-2021 10:20-0500 Respiratory rate 18 /min Kingsley Latisha Other [facility] Other 06-06-2021 10:20-0500 SaO2% (BldA) [Mass fraction] 97 % Kingsley Latisha Other [facility] Other 06-06-2021 10:20-0500 Systolic blood pressure 160 mm[Hg] Kingsley Latisah Other [facility] Other 04-10-2021 09:15-0500 Body height 170.18 cm Tondra Mapus Other [facility] Other 04-10-2021 09:15-0500 Body mass index (BMI) [Ratio] 30.99 kg/m2 Tondra Mapus Other [facility] Other 04-10-2021 09:15-0500 Body weight 89.77 kg Tondra Mapus Other [facility] Other 04-10-2021 09:15-0500 Diastolic blood pressure 64 mm[Hg] Tondra Mapus Other [facility] Other 04-10-2021 09:15-0500 Respiratory rate 18 /min Tondra Mapus Other [facility] Other 04-10-2021 09:15-0500 SaO2% (BldA) [Mass fraction] 98 % Tondra Mapus Other [facility] Other 04-10-2021 09:15-0500 Systolic blood pressure 136 mm[Hg] Tondra Mapus Other [facility] Other 02-14-2021 10:00-0500 Body height 170.18 cm Kingsley Latisha Other [facility] Other 02-14-2021 10:00-0500 Body mass index (BMI) [Ratio] 30.98 kg/m2 Kingsley Latisha Other [facility] Other 02-14-2021 10:00-0500 Body temperature 96 [degF] Kingsley Latisha Other [facility] Other 02-14-2021 10:00-0500 Body weight 89.72 kg Kingsley Latisha Other [facility] Other 02-14-2021 10:00-0500 Diastolic blood pressure 60 mm[Hg] Kingsley Latisha Other [facility] Other 02-14-2021 10:00-0500 Respiratory rate 16 /min Kingsley Latisha Other [facility] Other 02-14-2021 10:00-0500 SaO2% (BldA) [Mass fraction] 97 % Kingsley Latisha Other [facility] Other 02-14-2021 10:00-0500 Systolic blood pressure 130 mm[Hg] Kingsley Latisha Other [facility] Other 01-03-2021 10:15-0400 Body height 170.18 cm Tondra Mapus Other [facility] Other 01-03-2021 10:15-0400 Body mass index (BMI) [Ratio] 31.01 kg/m2 Tondra Mapus Other [facility] Other 01-03-2021 10:15-0400 Body weight 89.81 kg Tondra Mapus Other [facility] Other 01-03-2021 10:15-0400 Diastolic blood pressure 67 mm[Hg] Tondra Mapus Other [facility] Other 01-03-2021 10:15-0400 Respiratory rate 16 /min Tondra Mapus Other [facility] Other 01-03-2021 10:15-0400 SaO2% (BldA) [Mass fraction] 99 % Arlen Kwong Other [facility] Other 01-03-2021 10:15-0400 Systolic blood pressure 151 mm[Hg] Arlen Kwong Other [facility] Other Encounters Encounter Date Encounter Type Care Provider Facility Start: 06-22-2024 ambulatory [facility] Start: 06-18-2024 End: 06-18-2024 ambulatory KENNETH TAVERA Not Available Start: 05-28-2024 End: 05-28-2024 Patient encounter procedure Harley Ball DO Work Phone: [facility] [employer] Work Phone: Start: 05-28-2024 End: 05-28-2024 ambulatory Harley Ball DO Work Phone: [facility] Work Phone: Start: 05-26-2024 End: 05-26-2024 ambulatory [facility] Start: 05-18-2024 ambulatory [facility] Start: 05-05-2024 Non-patient / Non-visit Benjam in Ball DO Work Phone: [facility] Work Phone: Start: 04-30-2024 End: 04-30-2024 ambulatory [facility] Work Phone: Start: 04-30-2024 End: 04-30-2024 Patient encounter procedure [facility] Work Phone: Start: 04-21-2024 ambulatory [facility] Start: 04-16-2024 End: 04-16-2024 Patient encounter procedure [facility] Work Phone: Start: 04-02-2024 End: 04-02-2024 Bamboo flowsheet Kenneth Tavera DPM Work Phone: [facility] Start: 04-02-2024 End: 04-02-2024 Bamboo flowsheet Kenneth Tavera DPM Work Phone: [facility] Start: 04-02-2024 End: 04-02-2024 Patient encounter procedure Kenneth Tavera DPM Work Phone: [facility] Comment on above: 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, without long-term current use of insulin ([facility]) (Primary Dx); Pain due to onychomycosis of toenails of both feet Start: 04-02-2024 End: 04-02-2024 ambulatory KENNETH TAVERA Not Available Start: 03-26-2024 ambulatory [facility] Start: 03-10-2024 End: 03-10-2024 ambulatory [facility] Start: 03-06-2024 ambulatory [facility] Start: 02-24-2024 End: 02-24-2024 Patient encounter procedure [facility] Work Phone: Start: 02-20-2024 ambulatory [facility] Start: 02-18-2024 Non-patient / Non-visit [facility] Work Phone: Start: 02-18-2024 Non-patient / Non-visit [facility] Work Phone: Start: 02-13-2024 [facility] Start: 02-13-[facility]24 Evaluation and management of inpatient BONAVENTURE [facility] Start: 02-13-2024 Evaluation and management of inpatient BONAVENTURE [facility] Start: 02-13-2024 End: 02-14-2024 Evaluation and management of inpatient HEMALATHA LAGOS [facility] Start: 02-12-2024 Non-patient / Non-visit [facility] Work Phone: Start: 02-12-2024 Non-patient / Non-visit [facility] Work Phone: Start: 01-23-2024 End: [...] polyneuropathy, without long-term current use of insulin ([facility]); Pain due to onychomycosis of toenails of both feet Start: 01-23-2024 End: 01-23-2024 ambulatory KENNETH TAVERA Not Available Start: 01-23-2024 End: 01-23-2024 ambulatory [facility] Work Phone: Start: 01-23-2024 End: 01-23-2024 Patient encounter procedure [facility] Work Phone: Start: 01-21-2024 ambulatory [facility] Start: 01-16-2024 ambulatory [facility] Start: 01-10-2024 ambulatory [facility] Start: 01-09-2024 ambulatory [facility] Start: 01-07-2024 End: 01-07-2024 ambulatory [facility] Work Phone: Start: 01-07-2024 End: 01-07-2024 Patient encounter procedure [facility] Nephrology [place] Work Phone: Start: 12-30-2023 Non-patient / Non-visit [facility] Work Phone: Start: 12-12-2023 End: 12-12-2023 ambulatory [facility] Work Phone: Start: 12-12-2023 End: 12-12-2023 Patient encounter procedure [facility] Work Phone: Start: 11-28-2023 ambulatory [facility] Start: 11-12-2023 End: 11-12-2023 ambulatory [facility] Start: 11-07-2023 End: 11-07-2023 ambulatory KENNETH TAVERA Not Available Start: 10-17-2023 End: 10-17-2023 ambulatory [facility] Work Phone: Start: 10-17-2023 End: 10-17-2023 Patient encounter procedure [facility] Work Phone: Start: 10-07-2023 End: 10-07-2023 ambulatory EHAB [facility] Start: 10-02-2023 ambulatory [facility] Start: 10-02-2023 Encounter for preprocedural cardiovascular examination [facility] Start: 09-27-2023 Evaluation and management of inpatient [facility] Start: 09-27-2023 Evaluation and management of inpatient [facility] Start: 09-26-2023 Non-patient / Non-visit [facility] Work Phone: Start: 09-26-2023 Evaluation and management of inpatient [facility] Start: 09-26-2023 End: 09-28-2023 Evaluation and management of inpatient [facility] Start: 09-26-2023 Non-patient / Non-visit [facility] Work Phone: Start: 09-25-2023 ambulatory EMEKA NICHOLAS [facility] Start: 09-24-2023 ambulatory [facility] Start: 09-19-2023 ambulatory [facility] Start: 09-09-2023 End: 09-09-2023 ambulatory AB [facility] Start: 08-27-2023 Non-patient / [facility]-visit [facility] Work Phone: Start: 08-12-2023 End: 08-12-2023 ambulatory [facility] Work Phone: Start: 08-12-2023 End: 08-12-2023 Patient encounter procedure [facility] Work Phone: Start: 07-02-2023 End: 07-02-2023 ambulatory [facility] Work Phone: Start: 07-02-2023 End: 07-02-2023 Patient encounter procedure [facility] Nephrology Work Phone: Start: 06-24-2023 Non-patient / Non-visit [facility] Work Phone: Start: 06-18-2023 End: 06-18-2023 ambulatory [facility] Work Phone: Start: 06-18-2023 End: 06-18-2023 Patient encounter procedure [facility] Work Phone: Start: 06-13-2023 Non-patient / Non-visit [facility] Work Phone: Start: 05-03-2023 End: 05-03-2023 Patient encounter procedure DO Harley Crespo Work Phone: [facility]- Start: 04-30-2023 End: 04-30-2023 ambulatory Kingsley Latisha Other [facility] Other Start: 04-30-2023 Telephone encounter Kingsley Latisha [facility] Start: 04-23-2023 End: 04-23-2023 ambulatory Tondra Mapus Other [facility] Other Start: 04-23-2023 Telephone encounter Tondra Mapus [facility] Start: 03-12-2023 (DM) [facility] Start: 03-12-2023 End: 03-12-2023 ambulatory DO Harley Crespo Work Phone: [facility] Other Start: 03-12-2023 End: 03-12-2023 Discharged Recurring DO Harley Crespo Work Phone: [facility] Work Phone: Start: 03-12-2023 End: 03-12-2023 Patient encounter procedure DO Harley Crespo Work Phone: [facility] Work Phone: Start: 02-12-2023 End: 02-12-2023 ambulatory Harley Crespo Other [facility] Other Start: 02-12-2023 Telephone encounter Harley Crespo [facility] Start: 02-07-2023 End: 02-07-2023 ambulatory Harley Crespo Other [facility] Other Start: 02-07-2023 Telephone encounter Harley Crespo [facility] Start: 02-06-2023 End: 02-06-2023 ambulatory Tondra Mapus Other [facility] Other Start: 02-06-2023 Telephone encounter Tondra Mapus [facility] Start: 01-29-2023 End: 01-29-2023 ambulatory Harley Crespo Other [facility] Other Start: 01-29-2023 Telephone encounter Harley Crespo FP [facility] Start: 01-17-2023 End: 01-17-2023 ambulatory Arlen Kwong Other [facility] Other Start: 01-17-2023 Telephone encounter Arlen Kwong [facility] Start: 01-07-2023 End: 01-07-2023 ambulatory Harley Crespo Other [facility] Other Start: 01-07-2023 Office outpatient vi sit 25 minutes Kingsley Latisha [facility] Start: 01-07-2023 Telephone encounter Harley Crespo [facility] Start: 01-04-2023 End: 01-04-2023 ambulatory Kingsley Latisha Other [facility] Other Start: 01-04-2023 Telephone encounter Kingsley Latisha [facility] Start: 01-01-2023 End: 01-01-2023 ambulatory Kingsley Latisha Other [facility] Other Start: 01-01-2023 Telephone encounter Kingsley Latisha [facility] Start: 12-31-2022 End: 12-31-2022 ambulatory Harley Crespo Other [facility] Other Start: 12-31-2022 Office outpatient vi sit 25 minutes Harley Crespo [facility] Start: 12-31-2022 Telephone encounter Harley Crespo [facility] Start: 12-13-2022 End: 12-13-2022 ambulatory Denita Chairez Other [facility] Other Start: 12-13-2022 Nursing evaluation o f patient and report Denita Chairez [facility] Start: 11-23-2022 End: 11-23-2022 ambulatory Tondra Desireeus Other [facility] Other Start: 11-23-2022 Telephone encounter Tondra Kwong [facility] Start: 10-12-2022 End: 10-12-2022 ambulatory Tondra Desireeus Other [facility] Other Start: 10-12-2022 Telephone encounter Tondra Kwong [facility] Start: 10-09-2022 End: 10-09-2022 ambulatory Harley Crespo Other [facility] Other Start: 10-09-2022 Telephone encounter Harley Crespo FP [facility] Start: 10-01-2022 End: 10-01-2022 ambulatory Harley Crespo Other [facility] Other Start: 10-01-2022 Telephone encounter Harley Crespo FP [facility] Start: 09-27-2022 End: 09-27-2022 ambulatory Kingsley Latisha Other [facility] Other Start: 09-27-2022 Telephone encounter Kingsley Latisha [facility] Start: 09-26-2022 End: 09-26-2022 ambulatory Harley Crespo Other [facility] Other Start: 09-26-2022 Telephone encounter Harley Crespo FP [facility] Start: 09-19-2022 End: 09-19-2022 ambulatory Kingsley Latisha Other [facility] Other Start: 09-19-2022 Telephone encounter Kingsley Latisha [facility] Start: 09-12-2022 End: 09-12-2022 ambulatory Harley Crespo Other [facility] Other Start: 09-12-2022 Telephone encounter Harley HERRMANN [facility] Start: 09-03-2022 End: 09-03-2022 ambulatory Harley Crespo Other [facility] Other Start: 09-03-2022 Telephone encounter Harley HERRMANN [facility] Start: 08-31-2022 End: 08-31-2022 ambulatory Harley Crespo Other [facility] Other Start: 08-31-2022 Office outpatient vi sit 25 minutes Harley Crespo [facility] Start: 08-10-2022 End: 08-10-2022 ambulatory Harley Crespo Other [facility] Other Start: 08-10-2022 Telephone encounter Harley HERRMANN [facility] Start: 08-09-2022 End: 08-10-2022 ambulatory HARLEY CRESPO [facility] [employer] Other Start: 08-09-2022 Telephone encounter Kingsley Latisha [facility] Start: 07-02-2022 End: 07-02-2022 ambulatory Kingsley Latisha Other [facility] Other Start: 07-02-2022 Office outpatient vi sit 25 minutes Kingsley Latisha [facility] Start: 06-28-2022 End: 06-28-2022 ambulatory Harley Crespo Other [facility] Other Start: 06-28-2022 Patient encounter procedure Harley Crespo [facility] Start: 06-26-2022 (DM) Diabetes Tondra Mapus [facility] Start: 06-26-2022 End: 06-26-2022 ambulatory Tondra Mapus Other [facility] Other Start: 06-25-2022 End: 06-26-2022 ambulatory KINGSLEY LATISHA Facility:[facility] Start: 06-18-2022 End: 06-19-2022 ambulatory TONDRA MAPUS Facility:[facility] Start: 06-05-2022 End: 06-06-[address] HARLEY CRESPO Facility:[facility] Start: 05-26-2022 End: 05-26-2022 ambulatory Harley Crespo Other [facility] Other Start: 05-26-2022 Telephone encounter [facility]ley Crespo [facility] Start: 05-25-2022 End: 05-25-2022 ambulatory Tondra Mapus Other [facility] Other Start: 05-25-2022 Telephone encounter Tondra Mapus [facility] Start: 05-03-2022 End: 05-04-[address] PINKY BISHOP Facility:[facility] Start: 04-18-2022 End: 04-19-[address] PINKY BISHOP Facility:[facility] Start: 03-22-2022 End: 03-23-[address] HIGNIIO FLANAGAN Facility:[facility] Start: 03-20-2022 (DM) Diabetes Tondra Mapus [facility] Start: 03-20-2022 End: 03-20-2022 ambulatory Tondra Mapus Other [facility] Other Start: 03-12-2022 End: 03-13-2022 Evaluation and management of inpatient DR PARUL CHU Facility:[facility] Start: 03-09-2022 End: 03-10-[address] SHANNON LANDIS Facility:[facility] Start: 03-02-2022 End: 03-03-[address] HARLEY CRESPO Facility:[facility] Start: 02-19-2022 End: 02-19-2022 ambulatory Tondra Mapus Other [facility] Other Start: 02-19-2022 Telephone encounter Tondra Mapus [facility] Start: 02-08-2022 End: 02-08-2022 ambulatory Tondra Mapus Other [facility] Other Start: 02-08-2022 Telephone encounter Tondra Mapus [facility] Start: 01-15-2022 End: 01-17-2022 Evaluation and management of inpatient Harley Cherie Work Phone: [facility] Start: 01-15-2022 End: 01-15-[address] HARLEY CRESPO Facility:[facility] Start: 12-18-2021 Registered Recurring DO Zamudio in [place] Work Phone: [facility] Start: 12-18-2021 (DM) Diabetes Tondra Mapus [facility] Start: 12-18-2021 End: 12-18-2021 ambulatory Tondra [facility] Other [facility] Other Start: 12-08-2021 End: 12-09-[address] HARLEY CRESPO Facility:[facility]1 Start: 11-30-2021 End: 12-01-2021 ambulatory KINGSLEY GOOD Facility:H1 Start: 11-24-2021 End: 11-25-[address] HARLEY CRESPO Facility:[facility]1 Start: 11-16-2021 End: 11-16-2021 ambulatory Tondra Mapus Other [facility] Other Start: 11-16-2021 Telephone encounter Tondra Mapus Fir [facility] Start: 2021 End: 2021 ambulatory Tondra Mapus Other [facility] Other Start: 2021 Telephone encounter Tondra Mapus Fir [facility] Start: 10-31-2021 End: 10-31-2021 ambulatory Tondra Mapus Other [facility] Other Start: 10-31-2021 Telephone encounter Tondra Mapus Fir [facility] Start: 10-27-2021 End: 10-27-[address] HARLEY CRESPO Facility:[facility]1 Start: 10-20-2021 Telephone encounter Abdon martins MD Work Phone: Hematology/Oncology Comment on above: Lab Orders Start: 10-03-2021 End: 10-04-[address] GAGAN ADVID . Facility:[facility]1 Start: 09-29-2021 End: 09-29-2021 Patient encounter procedure Gagan DAVID General Surgery Nill/Said Luis Enrique Start: 09-04-2021 End: 09-05-[address] HARLEY CRESPO Facility:[facility]1 Start: 08-26-2021 End: 08-27-[address] HARLEY CRESPO Facility:[facility]1 Start: 07-24-2021 End: 07-24-2021 ambulatory Tondra [facility]us Other [facility] Other Start: 07-24-2021 Telephone encounter Tondra [facility]us [facility] Start: 07-17-2021 (DM) Diabetes Tondra Mapus [facility] Start: 07-17-2021 End: 07-17-2021 ambulatory Tondra Mapus Other [facility] Other Start: 06-19-2021 End: 06-19-2021 ambulatory Shannon Escobar Other [facility] Other Start: 06-19-2021 Telephone encounter Shannon Escobar [facility] Start: 06-06-2021 End: 06-06-2021 ambulatory Kingsley Latisha Other [facility] Other Start: 06-06-2021 Office outpatient vi sit 25 minutes Kingsley Latisha [facility] Start: 05-22-2021 End: 05-22-2021 ambulatory Tondra [facility]us Other [facility] Other Start: 05-22-2021 Telephone encounter Tondra Mapus [facility] Start: 05-16-2021 End: 05-16-2021 ambulatory Tondra Mapus Other [facility] Other Start: 05-16-2021 Telephone encounter Tondra Mapus Ac[facility] Start: 04-10-2021 (DM) Diabetes Tondra Mapus [facility] Start: 04-10-2021 End: 04-10-2021 ambulatory Tondra Mapus Other [facility] Other Start: 04-10-2021 Telephone encounter Tondra Mapus [facility] Start: 02-14-2021 End: 02-14-2021 ambulatory Kingsley Latisha Other [facility] Other Start: 02-14-2021 Patient encounter procedure Kingsley Latisha [facility] Start: 02-14-2021 Telephone encounter Tondra Mapus Ac[facility] Start: 01-03-2021 (DM) Diabetes Tondra Mapus [facility] Start: 10-14-2018 End: 10-15-2018 Patient encounter procedure [facility] Facility:[facility] Start: 02-24-2018 End: 02-25-2018 Evaluation and management of inpatient [facility] Facility:[facility] Procedures Date [...] A ELTAHAWY Start: 04-01-2017 Percutaneous coronary intervention Smiht DAVID Comment on above: vein graft Start: 04-01-2016 Aortic stent (physical object) Gagan Lockwood ROSENDO Start: 04-01-2015 Percutaneous coronary intervention Smith DAVID [...] Screening for malign ant neoplasm of colon [facility] Start: 06-11-2024 End: 06-11-2024 Patient encounter procedure 06/11/2024 11:50 AM EDT Office Visit [facility] [address] [place] [address] Kenneth Tavera, JULES [address] [address] [facility] Start: 04-02-2024 End: 04-02-2024 Patient encounter procedure [facility] Comment on above: 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, without long-term current use of insulin (CMS/HCC) (Primary Dx); Pain due to onychomycosis of toenails of both feet Start: 01-23-2024 End: 01-23-2024 Patient encounter procedure 01/23/2024 11:30 AM EDT Office Visit [facility] [address] [id number] Kenneth Tavera DPM [address] [address] Diabetes mellitus due to underlying condition with [...] feet Start: 10-26-2023 DIABETES SCREEN DIABETES SCREEN [facility] Start: 10-17-2023 Patient referral [facility] Work Phone: Start: 08-16-2023 Screening for malign ant neoplasm of colon FIT-DNA [facility] Start: 01-17-2022 [facility] Start: 01-17-2022 Radionuclide myocard ial perfusion stress study NM rachel perf SPECT rest & str [facility] Start: 01-17-2022 Referral to cardiac rehabilitation program [facility] Start: 01-16-2022 Hospital admission [facility] Start: 01-15-2022 Hospital admission [facility] Start: 11-30-2021 Influenza vaccination INFLUENZA (#1) [facility] Start: 10-24-2021 End: 12-24-2021 CBC W Auto Differential panel - Blood CBC + DIFF Lab Routine Monoclonal gammopathy Expected: 10/24/2021, Expires: 12/24/2021 [facility] Work Phone: Comment on above: Expected: 10/24/2021 , Expires: 12/24/2021 Start: 04-25-2021 Adult depression screening assessment DEPRESSION SCREENING [facility] Start: 04-01-2021 ADVANCE DIRECTIVE DISCUSSION ADVANCE DIRECTIVE DISCUSSION [facility] Start: 11-21-2020 COVID-19 VACCINE (3 - Booster for Pfizer series) COVID-19 VACCINE (3 - Booster for Pfizer series) [facility] Start: 11-07-2001 SHINGRIX VACCINE (1 of 2) SHINGRIX VACCINE (1 of 2) [facility] Start: 11-07-1996 COLOGUARD (FIT-DNA) COLOGUARD (FIT-D NA) [facility] Start: 11-07-1996 Colonoscopy COLONOSCOPY [facility] Start: 11-07-1996 COLORECTAL CANCER SCREENING COLORECTAL CANCER SCREENING [facility] Start: 11-07-[address] COLONOGRAPHY [facility] Start: 11-07-1996 FECAL OCCULT BLOOD FECAL OCCULT BLOO D [facility] Start: 11-07-1996 SIGMOIDOSCOPY SIGMOIDOSCOPY [facility] Start: 11-07-1986 LIPID SCREEN LIPID SCREEN [facility] Start: 11-07-1970 Urine microalbumin profile DTAP,TDAP,TD (1 - Tdap) [facility] Start: 11-07-1969 HEPATITIS C SCREENING HEPATITIS C SC REENING [facility] Start: 1950 ABDOMINAL AORTIC ANEURYSM SCREENING ABDOMINAL AORTIC ANEURYSM SCREENING [facility] Start: 1950 Screening for malign ant neoplasm of colon [facility] Comprehensive metabo lic 1999 panel - Serum or Plasma [facility] Comprehensive metabo lic 2000 panel - Serum or Plasma [facility] Patient Education [facility] Work Phone: Patient referral [facility] Work Phone: Renal function 1999 panel - Serum or Plasma [facility] Renal function 1999 panel - Serum or Plasma [facility] Immunizations Immunization Date Immunization Notes Care Provider Poli patel 12-12-2023 influenza, high dose seasonal, preservative-free [facility] 12-13-2022 influenza, high dose seasonal, preservative-free Denita Mihaela Other [facility] Other 12-13-2022 influenza virus vaccine, unspecified formulation DO Harley Crespo Work Phone: [facility] 12-15-2021 influenza virus vaccine, unspecified formulation DO Harley Crespo Work Phone: [facility] 12-15-2021 influenza, high dose seasonal, preservative-free Harley Crespo Other [facility] Other 02-21-2021 COVID-19 mRNA, Comirnaty (Pfizer) DO Harley Crespo Work Phone: [facility] 06-21-2020 COVID-19 Vaccine Pfi zer - Documentation Purposes Only Tondra Mapus Other [facility] 05-30-2020 COVID-19 Vaccine Pfi zer - Documentation Purposes Only Tondra Mapus Other [facility] 01-17-2018 pneumococcal polysaccharide vaccine, 23 valent Abdon Walker MD Work Phone: [facility] 01-17-2018 Seasonal trivalent influenza vaccine, adjuvanted, preservative free Abdon Walker MD Work Phone: [facility] 01-16-2017 influenza, high dose seasonal, preservative-free Abdon Walker MD Work Phone: [facility] 11-30-2016 influenza, injectabl e, quadrivalent, preservative free Abdon Walker MD Work Phone: [facility] 11-14-2016 pneumococcal conjuga te vaccine, 13 valent Abdon Walker MD Work Phone: [facility] 04-02-2016 pneumococcal polysaccharide vaccine, 23 valent Arlen Kwong Other [facility] 01-23-2012 influenza, seasonal, injectable Abdon Walker MD Work Phone: [facility] 12-13-2010 influenza, seasonal, injectable Abdon Walker MD Work Phone: [facility] 01-27-2009 novel [id number], preservative-free, injectable Abdon Walker MD Work Phone: [facility] 01-19-2008 influenza virus vaccine, whole virus Abdon Walker MD Work Phone: [facility] Payers Date Payer Category Payer Self-pay [id number] 2021 [facility] [employer] [id number] 2019 Unknown MMO MMO MEDICARE SUPPLEMENT [id number] 2019-Present [phone] [address] [place] [address] Indemnity [id number] 2016 Medicare MEDICARE MEDICAR E A AND B [id number] 2016-Present [phone] [address] [address] [place] [address] Medicare [id number] 2016 Medicare MEDICARE [id number] 1959 Medicare [id number] 1959 Unknown [id number] 2.16.840.1.232044.19 1951 Unknown [id number] 2.16.840.1.508270.3.579.2. 647 1951 Unknown [id number] 2.16.840.1.499766.3.579.2. 647 1951 Unknown [id number] 2.16.840.1.614505.3.579.2. 593 1951 Unknown [id number] 2.16.840.1.250917.3.579.2. 593 1951 Unknown [id number] 2.16.840.1.463497.3.579.2. 593 1951 Unknown [id number] 2.16.840.1.606108.3.579.2. 593 1951 Unknown [id number] 2.16.840.1.903807.3.579.2. 593 1951 Unknown [id number] 2.16.840.1.660456.3.579.2. 593 1951 Unknown [id number] 2.16.840.1.316922.3.579.2. 593 1951 Unknown [id number] 2.16.840.1.334501.3.579.2. 593 1951 Unknown [id number] 2.16.840.1.748047.3.579.2. 593 1951 Unknown [id number] 2.16.840.1.938900.3.579.2. 593 1951 Unknown [id number] 2.16.840.1.989770.3.579.2. 593 1951 Unknown [id number] 2.16.840.1.201245.3.579.2. 593 1951 Unknown [id number] 2.16.840.1.339791.3.579.2. 593 1951 Unknown [id number] 2.16.840.1.403496.3.579.2. 593 1951 Unknown [id number] 2.16.840.1.138153.3.579.2. 593 1951 Unknown [id number] 2.16.840.1.255589.3.579.2. 593 1951 Unknown [id number] 2.16.840.1.517830.3.579.2. 593 1951 Unknown [id number] 2.16.840.1.072495.3.579.2. 593 1951 Unknown [id number] 2.16.840.1.265980.3.579.2. 1259 1951 Unknown [id number] 2.16.840.1.410985.3.579.2. 1259 1951 Unknown [id number] 2.16.840.1.879892.3.579.2. 1259 1951 Unknown [id number] 2.16.840.1.138405.3.579.2. 1259 Unknown [id number] Unknown HCAP/HFA/FAP Active [id number] Unknown HCAP/HFA/FAP Active [id number] Unknown [id number] 2.16.840.1.745201.3.579.2. 531 Social History Date Type Detail Facility Unknown if ever smoked [facility] Other Start: 11-07-2023 End: 01-23-2024 Sex Assigned At [employer] Other Start: 09-29-2021 End: 05-28-2024 Tobacco smoking status Ex-smoker (finding) [facility] [place] Tobacco smoking status Never Gener al [facility] Luis Enrique Start: 07-23-2018 End: 10-12-2022 Tobacco use and exposure Smokeless tobacco non-user [facility] Start: 10-25-2020 Alcohol intake Ex-drinker (finding) [facility] Start: 1950 Sex Assigned At Not on file [facility] Start: 1950 Sex Assigned At Male F [facility] Start: 10-12-2022 [facility] Start: 11-07-2023 End: 04-02-2024 Alcoholic beverage intake Defer [facility] Start: 11-07-2023 End: 01-23-2024 History of Social function [facility] Start: 04-30-2024 End: 05-29-2024 Sex Male (finding) [facility] Medical Equipment Procedure Code Equipment Code Equipment [...] Facility 01-17-2022 Functional status Patient at [facility] Work Phone: 09-29-2021 Functional Status N/A General [facility] Mental Status Date Assessment Result Facility 01-17-2022 Cognitive function Cognitive Sta tus Patient at Baseline [facility] Work Phone: Clinical Notes 01-03-2021 to 04-16-2024 Note Date & Type Note Facility 04-16-2024 Evaluation note Diagnosis Onset Date Resolution Chronic HFrEF (heart failure with reduced ejection fraction) acute April 16, 2024 8:19am Chronic kidney disease acute Ja nuary 2024 8:19am HTN (hypertension) acute Januar y 2024 8:19am Hypercholesterolemia acute Desean lee ann 2024 8:19am Ischemic cardiomyopathy acute J anuary 2024 8:19am Pulmonary nodule acute April 16, 2024 8:19am Type 2 diabetes mellitus with hyperglycemia acute April 16, 2024 8:19am BMI 28.0-28.9,adult acute Aprua ry 2024 9:21am Dietary counseling and surveillance acute April 30, 2024 9:21am HTN (hypertension) acute Apruar y 2024 9:21am DM2 (diabetes mellitus, type 2) deleted April 30, 2024 9:21am HLD (hyperlipidemia) deleted lee ann 2024 9:21am [facility] Work Phone: 1(125) 174-744301-02-2025 History of Present illness Narrative* Kenneth Tavera, DPM - 04/02/2024 11:50 AM EST Patient: Lani Lizama : 1950 PCP: aHrley Crespo MD SUBJECTIVE This is a 73 [...] retinopathy (CMS/HCC) HTN (hypertension) (CMS/HCC) Hypercholesteremia (CMS/HCC) MT (myocardial infarction) (CMS/HCC) 2021 Two total: 02/20, [...] in the morning., Disp: , Rfl: HYDROcodone-acetaminophen (Hyndman) 5-325 MG tablet, TAKE 1 TABLET BY [...] Strain: Low Risk (02/13/2024) Received from [facility] Overall Financial Resource Strain (CARDIA) Difficulty of Paying Living Expenses: Not very hard Food Insecurity: No Food Insecurity (02/13/2024) Received from [facility] Hunger Vital Sign Within the past 12 months, you worried that your food would run out before you got the money to buymore.: Never true Ran Out of Food in the Last Year: Not on file Transportation Needs: No Transportation Needs (02/13/2024) Received from [facility] Transportation In the past 12 months, has lack of transportation kept you from medical appointments or from getting medications?: No Lack of Transportation (Non-Medical): Not on file Physical Activity: Not on file Stress: Not on file Social Connections: Not on file Intimate Partner Violence: Unknown (02/13/2024) Received from [facility] Humiliation, Afraid, Rape, and Kick questionnaire Fear of Current or Ex-Partner: No Emotionally Abused: Not on file Physically Abused: Not on file Sexually Abused: Not on file Housing Stability: Low Risk (02/13/2024) Received from [facility] Housing Stability Vital Sign In the last 12 months, was there a time when you were not able to pay the mortgage or rent on time?: No Number of Times Moved in the Last Year: Not on file At any time in the past 12 months, were you homeless or living in a fpc (including now)?: No ROS: General: denies fever, [...] and negative PT pedal pulses NEURO: 5.07 [place] Chun monofilament test diminished to digits and forefoot bilaterally 125Hz tuning fork diminished to 1st MPJ bilaterally ORTHO: Positive pain on palpation to nails 1 through 10 ASSESSMENT 1. Diabetes 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, without long-term current use of insulin ([facility]) 2. Pain due to onychomycosis of toenails [...] him Kenneth Tavera DPM documented in this encounterPut[facility] HospitalWllfxerwcb01-12-6608 NoteUT Cardiology Consult Note Reason for visit: Complete heart block on event monitor, HFrEF 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%, atrial tachycardia 03/10/24 Patient here for 5 mo follow up bradycardia, complete heart block s/p PPM per Dr. Bishop. He was also admitted to [facility] for NSTEMI last month. Underwent heart cath with Dr. Pena on 02/12. He was started on Ranexa and lisinopril was stopped. Denies chest pain, SOB, and palpitations. Gets lightheaded at times, but no syncopal episodes. 05/07/23 Patient is s/p BiV ICD. 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 patient has got good device threshold. he [...] and hypertension. He was recently admitted to [facility] for NSTEMI. Had inpatient stress test and heart cath. Denies SOB but still having chest pain and has taken nitroglycerin a few times for relief. Had CT chest last week s/p discharge. Cardiac catheterization revealed patent bypass grafts and worsening pilot station vessel disease. Medications were adjusted. I had [...] Tobacco Use: Low Risk (01/23/2024) Received from [facility]4interactive, [facility] Patient History Smoking Tobacco Use: Never Smokeless Tobacco Use: Never Passive Exposure: Not on file Alcohol Use: Not At Risk (03/13/2018) Received from [facility] Frequency of Alcohol Consumption: Never Average [...] Abused: Not on f (more content not included)...[facility]11-25-2024 Evaluation note* Diagnosis Onset Date Resolution Status [...] diabetes mellitus wit h hyperglycemia acute February 23 9:29am Controlled type 2 diabetes mellitus with diabetic peripheral angiopathy wit deleted February 23 9:29am Chronic HFrEF (heart failure with reduced [...] 2024 9:21am HLD (hyperlipidemia) deleted 2024 9:21am [facility] Work Phone: 1(935) 301-957911-15-2024 NoteHospital Medicine Discharge Summary Final Discharge Diagnosis: NSTEMI CAD s/p CABG, PCI 08/2023 Chronic heart failure with reduced ejection fraction, NYHA class II Insulin-dependent type 2 diabetes mellitus Chronic kidney disease stage III A Third degree AV block with AICD/pacemaker Essential hypertension Carotid stenosis Hyperlipidemia Peripheral vascular disease Admission Diagnosis: NSTEMI (non-ST elevated myocardial infarction) (CMS/HCC) [I21.4] Hospital course: Lani Lizama is an 73 y.o. male who came from Transferred from [facility] with NSTEMI with NSTEMI. 71-year-old gentleman [...] procedure on that. Patient was transferred from [facility] to [facility] where he was seen for chest pain that has been going on for most of the day causing him to take nitroglycerin on 5 separate incidences and with intensification of the chest pain at shortening intervals that caused him to call the ambulance. At [facility] workup did show that patient had rising troponins initial 1 was 23 and then 85 isa intensity troponin. There was no mention change on the EKG as was reported to me by the ER physician Dr. Lagos at [facility]. Other workup that was done at [facility] included basic metabolic panel that showed [...] history as above. The ER physician from [facility] had spoken to our petroleum geology faculty member here who accepted the patient for transfer to [facility] for possible trip to the Body Service Team Member very early this morning depending on the [...] Center 03/10/2024 10:45 AM Kevin Arteaga MD [facility] Your medication list START taking these [...] 40 mg tablet Commonly (more content not included)...[facility] 02-13-2024 NoteHospital Medicine Daily Progress Note - 02/13/2024 8:36 AM; Room: [address] [place] [address] Admission: 02/13/2024 2:53 AM; Length of stay: 0 days THE HOSPITALIST TEAM PREFERS TO USE [employer] CHAT FOR COMMUNICATION 7AM-7PM. IF I DO NOT RESPOND WITHIN 15 MINUTES, PLEASE PAGE ME/CALL THROUGH THE STOCK ORDER LISTER. FROM 7PM-7AM, PLEASE PAGE [phone](COVR) Code Status: Full Code Barriers to Discharge: NSTEMI Expected Discharge Date: 2-3 days Discharge Destination: home Overview Patient is seen for evaluation and management of chest pain. Subjective Patient was examined at bedside resting comfortably. He presented overnight to ED after transfer from [facility]. He states that he had crushing chest [...] Principal Problem: NSTEMI (non-ST elevated myocardial infarction) ([facility]) Active Problems: Coronary atherosclerosis Essential hypertension History of coronary artery bypass surgery Mixed hyperlipidemia Stage 3 chronic kidney disease ([facility]) Chest pain Type 2 diabetes mellitus with hyperglycemia ([facility]) PVD (peripheral vascular disease) ([facility]) Carotid stenosis, asymptomatic Assessment and Plan Lani Lizama is a 73 year old male with a past medical history of CAD with 9 stents, 5 vessel CABG, HTN, HLD, DM2, third degree AV block with pacemaker/AICD presented as a transfer from [facility] ED with worsening crushing, radiating chest pain. Patient is being admitted to [facility] and cardiology has been consulted. Tentative [...] subcutaneous, Nightly isosorbide mononitra (more content not included)...[facility]11-14-2024 NoteHospital Medicine History and Physical 02/13/2024 3:40 AM THE HOSPITALIST TEAM PREFERS TO USE [employer] FOR NON-URGENT COMMUNICATION 7AM-7PM. IF I DO NOT RESPOND WITHIN 20 MINUTES OR URGENT MATTERS, PLEASE CALL THROUGH THE STOCK ORDER LISTER. FROM 7PM-7AM, PLEASE PAGE [phone](COVR). Chief Complaint No chief complaint on file. History of Present Illness Lani Lizama is an 73 y.o. male who came from Transferred from [facility] with NSTEMI with NSTEMI. 71-year-old gentleman [...] procedure on that. Patient was transferred from [facility] to [facility] where he was seen for chest pain that has been going on for most of the day causing him to take nitroglycerin on 5 separate incidences and with intensification of the chest pain at shortening intervals that caused him to call the ambulance. At [facility] workup did show that patient had rising troponins initial 1 was 23 and then 85 isa intensity troponin. There was no mention change on the EKG as was reported to me by the ER physician Dr. Lagos at [facility]. Other workup that was done at [facility] included basic metabolic panel that showed [...] history as above. The ER physician from [facility] had spoken to our petroleum geology faculty member here who accepted the patient for transfer to [facility] for possible trip to the Body Service Team Member very early this morning depending on the [...] Principal Problem: NSTEMI (non-ST elevated myocardial infarction) ([facility]) Active Problems: Coronary atherosclerosis Essential hypertension History of coronary artery bypass surgery Mixed hyperlipidemia Stage 3 chronic kidney disease ([facility]/HCC) Chest pain Type 2 diabetes mellitus with hyperglycemia ([facility]/H[facility]) PVD (peripheral vascular disease) ([facility]) Carotid stenosis, asymptomatic Assessment and Plan PLAN OF CARE: 71-year-old gentleman with very profuse history of cardiovascular disease including prior CAD with stents and CABG as well as hypertension and HLD comes seen with acute NSTEMI. Patient is being admitted to [facility] and cardiology has been consulted with possible trip to the Body Service Team Member at the earliest possible time by cardiology. [...] be -Consult cardiology (done) (more content not included)...[facility]10-24-2024 History of Present illness Narrative* Kenneth Tavera DPM - 01/23/2024 11:30 AM EDT Patient: [...] has only been using prescribed or recommended [id number] cream with some improvement. Patient also has longstanding history of multiple MIs and cardiac history Allergies: Allergies Allergen Reactions Other Other Reaction(s): Unknown Received name: Nkda Past Medical History: Past Medical History: Diagnosis Date Diabetic retinopathy (CMS/HCC) HTN (hypertension) ([facility]) Hypercholesteremia (CMS/[facility]) MT (myocardial infarction) ([facility]) 2021 Two total: 02/20, 03/22 Type 1 diabetes mellitus ([facility]/HCC) Medications: Current Outpatient Medications: ALPRAZolam (Xanax) 0.5 [...] in the morning., Disp: , Rfl: HYDROcodone-acetaminophen (Hyndman) 5-325 MG tablet, TAKE 1 TABLET BY [...] Strain: Low Risk (09/26/2023) Received from [facility] Overall Financial Resource Strain (CARDIA) Difficulty of Paying Living Expenses: Not very hard Food Insecurity: No Food Insecurity (09/26/2023) Received from [facility] Hunger Vital Sign Within the past 12 months, you worried that your food would run out before you got the money to buymore.: Never true Ran Out of Food in the Last Year: Not on file Transportation Needs: No Transportation Needs (09/26/2023) Received from [facility] Transportation In the past 12 months, has lack of transportation kept you from medical appointments or from getting medications?: No Lack of Transportation (Non-Medical): Not on file Physical Activity: Not on file Stress: Not on file Social Connections: Not on file Intimate Partner Violence: Unknown (09/26/2023) Received from [facility] Humiliation, Afraid, Rape, and Kick questionnaire Fear of Current or Ex-Partner: No Emotionally Abused: Not on file Physically Abused: Not on file Sexually Abused: Not on file Housing Stability: Low Risk (09/26/2023) Received from [facility] Housing Stability Vital Sign Unable [...] and negative PT pedal pulses NEURO: 5.07 [place] Chun monofilament test diminished to digits and forefoot bilaterally 125Hz tuning fork diminished to 1st MPJ bilaterally ORTHO: Positive pain on palpation to nails 1 through 10 ASSESSMENT 1. Diabetes 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, without long-term current use of insulin ([facility]) 2. Pain due to onychomycosis of toenails [...] him Kenneth Tavera DPM documented in this encounterPutnam County Memorial [id number] [facility] Note Chief Complaint: [...] Admission Diagnosis: NSTEMI (non-ST elevated myocardial infarction) ([facility]) [I21.4] Hospital course: 72-year-old male with past medical history significant for CAD status post CABG x 5 vessels and history of 7 PCI's who presented to the hospital due to chest pain. The patient does have HFrEF with an EF of 15 to 20% status post BiV EXERCISE SCIENTIST-D. Patient reports compliance with his medications and [...] 98% BMI 27.88 kg (more content not included)...[facility]06-29-2024 Note Attestation signed by Kevin Arteaga MD [...] Daily, Heidy Dee MD, 10 mg at 09/28/23919 glucose chewable tablet 24 g, 24 g, oral, q15 min PRN OR dextrose 50 % in water (D50W) syringe 25 g, 25 g, intravenous, q15 min PRN, Heidy Dee MD docusate sodium (Colace) capsule 100 mg, 100 mg, oral, Daily, Heidy Dee MD, 100 mg at 09/28/2319 isosorbide mononitrate ER (Imdur) 24 hr tablet 60 mg, 60 mg, oral, 2 times daily, Heidy Dee MD lisinopril tablet 2.5 mg, 2.5 mg, oral, BID, Heidy Dee MD, 2.5 mg at 09/28/23 09 metoprolol succinate XL (Toprol-XL) 24 hr tablet 150 mg, 150 mg, oral, Daily, Heidy Dee MD, 150 mg at 09/28/23919 pantoprazole (ProtoNix) EC tablet 40 mg, 40 mg, oral, Daily, Heidy Dee MD, 40 mg at 09/28/2331 rosuvastatin (Crestor) tablet 40 mg, 40 mg, oral, Nightly, Heidy Dee MD, 40 mg at 09/27/23 5184 Insert peripheral IV, , , Once AND Saline lock IV, , , Once AND sodium chloride flush 10 mL, 10 mL, intravenous, q8h PRN, Catalina Marin MD traMADol (Ultram) tablet 50 mg, 50 mg, oral, q6h PRN, Jesus Alexander, 50 mg at 09/27/23 4073 Objective: Patient Vitals for the past 24 [...] Value Ventricular Rate 78 Atrial Rate 78 LA Interval 160 QRS DURATION 144 QT Interval 444 QTC CALCULATION(BAZETT) 506 P Bancroft 49 R-Bancroft -41 T Wave Bancroft 106 Impression Atrial-sensed ventricular-paced rhythm Abnormal ECG When compared with ECG of 26-SEP-2023 18:59, Vent. rate has decreased BY 3 BPM Lab Results Component Value Date TROPONINI 3.05 (HH) 09/27/2023 Complete Echo (TTE) w/wo Imaging Agent, Strain, 3D, Bubble Study Result Date: 09/27/2023 1 1 [facility] Heart Station [address] [place] [address] [phone] (fax) Echocardiogram-[facility] Name: LANI LIZAMA Study Date: 09/27/2023 07:42 AM B/P: 118 mmHg/57 mmHg (more content not included)...[facility] 09-28-2023 NoteHospital Medicine Discharge Summary Final Discharge Diagnosis: #NSTEMI #chronic HFrEF NYHA class I #CAD #HTN #Diabetes #Hx bradycardia Admission Diagnosis: NSTEMI (non-ST elevated myocardial infarction) ([facility]) [I21.4] Hospital course: 72-year-old male with past medical history significant for CAD status post CABG x 5 vessels and history of 7 PCI's who presented to the hospital due to chest pain. The patient does have HFrEF with an EF of 15 to 20% status post BiV EXERCISE SCIENTIST-D. Patient reports compliance with his medications and [...] Heidy Dee MD Hospital Medicine 09/28/2023 11:15 [facility]06-28-[facility] NotePatient: Lani Lizama Procedure Information Date/Time: 09/27/23 1300 Procedure: Coronary angiography Location: [facility] MECHANICS SUPERVISOR 3 / [facility] (Cath) Providers: Luisito Foreman [...] discussed with fellow and attending. Additional Equipment RequestsMet[facility]06-[facility] Note Adult Nutrition Assessment: Name: Lani Lizama Date: 1950 Date of Visit: 09/27/23 Admission Dx: NSTEMI (non-ST elevated myocardial infarction) ([facility]) [I21.4] Reason for assessment: high risk -wound Information obtained from: patient, family, medical record, and nursing -son at bedside Past Medical History: Diagnosis Date Carotid artery stenosis Coronary artery disease Diabetes mellitus ([facility]) Hyperlipidemia Hypertension PVD (peripheral vascular disease) ([facility]) Third degree heart block ([facility]) CABG x5, stents, EF 30%, HF Current [...] Question: Reason for NPO: Answer: Operation/Procedure 09/26/231712 Percent Meals Eaten (%): 100 (09/26/23 1851 : Carolina Bragg RN) Nutrition Risk: Low Malnutrition Assessment: Patient at risk for malnutrition according to hospital criteria, but does not meet the clinical characteristics per the Academy of Nutrition and Dietetics, and the [place] [employer] of Enteral and Parenteral Nutrition to [...] compliance w/ MNT Contact the dietitian via Hand Talk chat 8A-4P Saturday through Saturday or call extension [phone]. For s & hols, the dietitian can be reached via pager [phone] from 9A-3P. Unable to respond to Smile messages on Saturday & .[facility]06-28-2024 Note Attestation signed by Heidy Dee MD [...] Progress Note - 09/27/2023 10:26 AM; Room: [address] [place] [address] Admission: 09/26/2023 4:35 PM; Length of stay: 1 days THE HOSPITALIST TEAM PREFERS TO USE [employer] CHAT FOR COMMUNICATION 7AM-7PM. IF I DO NOT RESPOND WITHIN 15 MINUTES, PLEASE PAGE ME/CALL THROUGH THE STOCK ORDER LISTER. FROM 7PM-7AM, PLEASE PAGE [phone](COVR) Code Status: Full Code Barriers to Discharge: Pending cardiac workup Expected Discharge Date: Discharge Destination: home Overview Patient is seen for evaluation and management of NSTEMI. Juanjo Lizama is a 72 y/o male with a significant PMHx for HFpEF (NYHA class 3), coronary artery disease [s/p 5 vessel CABG (patient reports CABG performed in 1995), 7 stents], DM2, hyperlipidemia, peripheral vascular disease, 3rd degree heart block (s/p BiV EXERCISE SCIENTIST-D) that presented to OSH w/ c/o chest [...] Principal Problem: NSTEMI (non-ST elevated myocardial infarction) ([facility]) Assessment and Plan #NSTEMI - Supplemental oxygen NC - DAPT (aspirin 81 mg, daily; and Plavix 75 mg, daily) - Metoprolol Succinate XL (150 mg, daily) - Rosuvastatin (40 mg, nightly) #HFrEF - Echo pending #CAD - Angiogram planned today #HTN #Diabetes - Insulin sliding scale - Goal blood sugar 140-180 #Hx bradycardia - s/p EXERCISE SCIENTIST-D Wounds: Wound 09/26/23 Other (comment) Toe (Comment [...] 81 mg, oral, Daily (more content not included)...[facility]06-10-[facility] Chief Complaint: Patient [...] size. Global left connie (more content not included)...[facility]01-30-2024 Evaluation note* Encounter Date Diagnosis Assessment Notes Treatment Notes Treatment Clinical Notes Apr, Chronic HFrEF (heart failure with reduced ejection fraction) (ICD-10 - I50.22) [facility] Other 12-12-2023 Evaluation note* Encounter Date Diagnosis [...] age/comorbidities 2. Blood glucose levels according to [employer] cgm download 02/27/2023- 023: Average glucose 134. [...] PAP-Jardiance was denied, pt given information on [facility] diabetes discount program instructed to apply order [...] to make it easier material was printed [facility] Other 2023 Evaluation note* Encounter Date Diagnosis Assessment Notes Treatment Notes Treatment Clinical Notes Jan, Chronic HFrEF (heart failure with reduced ejection fraction) (ICD-10 - I50.22) [facility] Other 10-09-2023 Evaluation note* Encounter Date Diagnosis [...] Continue statins. Monitor LFTs and lipid profile. [facility] Other 10-06-2023 Evaluation note* Encounter Date Diagnosis Assessment Notes Treatment Notes Treatment Clinical Notes Dec, Ground glass opacity present on imaging of lung (ICD-10 - R91.8) CT: RUL, RML - 12/2022Dec, Pulmonary nodule (ICD-10 - R91.1) CT: 7mm RML nodule - 12/2022 [facility] Other 10-03-2023 Evaluation note* Encounter Date Diagnosis Assessment Notes Treatment Notes Treatment Clinical Notes Dec, Stage 3b chronic kidney disease (ICD-10 - N18.32) [facility] Other 10-02-2023 Evaluation note* Encounter Date Diagnosis [...] be contributing - must discuss w/ Cardiology [facility] Other 07-03-2023 Evaluation note* Encounter Date Diagnosis Assessment Notes Treatment Notes Treatment Clinical Notes Sep, ASHD (arteriosclerotic heart disease) (ICD-10 - I25.10) [facility] Other 06-21-2023 Evaluation note* Encounter Date Diagnosis Assessment Notes Treatment Notes Treatment Clinical Notes Aug, ASHD (arteriosclerotic heart disease) (ICD-10 - I25.10) [facility] Other 06-02-2023 Evaluation note* Encounter Date Diagnosis [...] inserts to prevent callus formation.Fall precautions. Aug, intermediate manager (current) use of insulin (ICD-10 - Z79.4) [facility] Other 05-11-2023 Evaluation note* Encounter Date Diagnosis Assessment Notes Treatment Notes Treatment Clinical Notes July, Ground glass opacity present on imaging of lung (ICD-10 - R91.8) CT: RML,RUL infiltrate - 12/2021, CT: RML,RUL improved - 03/2022 CT: RML, RUL, GGO improved - 07/2022 [facility] Other 04-03-2023 Evaluation note* Encounter Date Diagnosis [...] D and PTH. Advised low phosphorus diet. [facility] Other 03-30-2023 Evaluation note* Encounter Date Diagnosis [...] are reviewed at the office visit. May, intermediate manager (current) use of insulin (ICD-10 - Z79.4) [...] (ICD-10 - Z12.5) Yearly PSA and ABDELRAHMAN [facility] Other 03-28-2023 Evaluation note* Encounter Date Diagnosis [...] 2. Blood glucose levels stable. According to [employer] cgm download 06/13/2022- 3: Average glucose 190. [...] to make it easier material was printed [facility] Other 02-25-2023 Evaluation note* Encounter Date Diagnosis Assessment Notes Treatment Notes Treatment Clinical Notes May, Abnormality of lung on CXR (ICD-10 - R91.8) [facility] Other 12-20-2022 Evaluation note* Encounter Date Diagnosis [...] 2. Blood glucose levels stable. According to [employer] cgm download 03/07/2022-03/20/20 22: Average glucose 144. Above 250-0%, >180- 15%, 70-180-85%, <70-0%, <54-0%. CV 24.3%. Reviewed download with pt, no incidence of hypoglcyemia noted. Glucose rise between 12-6pm. D/t current shortage of ozempic, recommend pt reduce dose to 0.5mg once weekly until shipment recieved from [facility], then increase to 1mg once [...] hypertension material was printed on [employer]ion[employer]. Mar, intermediate manager current use of insulin (ICD-10 - Z79.4) Mar, Hyperlipidemia (ICD-10 - E78.5) High cholesterol material was printed 06/2021 ldl 48- on statin. Mar, BMI 26.0-26.9,adult (ICD-10 - Z68.26) Eating healthy: tips to make it easier material was printed 9 pound weight loss from last visit, continue with weight loss efforts [facility] Other 11-10-2022 Evaluation note* Encounter Date Diagnosis Assessment Notes Treatment Notes Treatment Clinical Notes Jan, Diabetes mellitus with chronic kidney disease (ICD-10 - E11.22) [facility] Other 10-19-2022 Discharge summary Author Gagan Shahid [facility] January 17, 2022 3:02pm Note Date/Time January 17, 2022 3 :02pm [facility] [address] [place] [address] Discharge Summary Signed Patient: Lani Lizama MR#: [id number] : 1950 Acct:[id number] Age/Sex: 71 / M Adm Date: 2 Loc: Room: [address] [place] [address]: Gagan Shahid DO Copies to: [...] thought this to be indigestion/GERD in the telegraph inspector hours howeverthis progressively worsened prompting his presentation [...] consulted for management of non-ST segment elevation MT. Cardiac catheterization was undergone on 01/16/2022 showing [...] levels as before. DISCHARGE INSTRUCTIONS FOR CARDIAC MECHANICS SUPERVISOR PHONE NUMBER OF YOUR PHYSICIAN: [phone] PROCEDURE: Heart Cath The following instructions have [...] cold, numb, blue or white, call the petroleum geology faculty member immediately. 4. ACTIVITY: You are advised to [...] bottle, follow the instructions on the bottle. [facility] is not responsible for incorrect [...] <Electronically signed by Gagan Shahid DO> 01/17/22 5[address] [facility] Work Phone: 1(730) 552-737310-19-2022 Progress note Author Luis Alfredo Borges [facility] January 17, 2022 11:47am Note Date/Time January 17, 2022 1 1:47am [facility] [address] [place] [address] Cardiology Progress Note Signed Patient: Lani Lizama MR#: [id number] : 1950 Acct:[id number] Age/Sex: 71 / M Adm Date: 2 Loc: 3T Room: [address] [place] [address] Type: ADM IN Attending Dr: Gagan Shahid [...] is also notable worsening of the patient's pilot station occlusive coronaryheart disease particularly in the microcirculation [...] daily 3. Patient does have a primary petroleum geology faculty member near his home in [place]. We willschedule him 1 follow-up visit in [facility] for left wrist check and also for counseling and reinforcement/referral to phase 2 monitored cardiac rehabilitation which the patient desires to perform in [place]. 4. Instructed the patient that he can [...] by Luis Alfredo Borges MD> 01/17/22 [address] [facility] Work Phone: 1(503) 872-669310-18-2022 Progress note Author Gagan Shahid [facility] January 16, 2022 4:09pm Note Date/Time January 16, 2022 4 :09pm [facility] [address] [place] [address] Hospitalist Progress Note Signed Patient: Lani Lizama MR#: [id number] : 1950 Acct:[id number] Age/Sex: 71 / M Adm Date: 2 Loc: Room: [address] [place] [address] Type: ADM IN Attending Dr: Gagan Shahid [...] To Pharmacy [facility] 01/16/23 14:15 .PHACONSULT PRN ZAmparo.Pharmacy Consult Protocol Multivitamins 1 tab 01/16/22 09:00 [...] signed by Gagan Shahid DO> 01/16/22 1609 [facility] Work Phone: 1(181) 749-400310-18-2022 [facility] Consult note Author Luis Alfredo Borges [facility] January 16, 2022 10:24am Note Date/Time January 16, 2022 1 0:24am [facility] [address] [place] [address] Cardiology Consult Note Signed Patient: Lani Lizama MR#: [id number] : 1950 Acct:[id number] Age/Sex: 71 / M Adm Date: 2 Loc: Room: [address] [place] [address] Type: ADM IN Attending Dr: Gagan Shahid [...] well as history of PCI done here [facility] per Dr. Saldaña in May [...] he activated EMS and was taken to [facility] emergency department. There the patient was [...] Lymph # (Auto) 1.0 1.6 (1.00-4.8) x10E3/uL Ciales # (Auto) 0.4 0.8 (0.0-0.8) x10E3/uL Eos [...] 01/16/22 23:59 Weight 77 kg Lab 01/15/22 01/15/2222 15:00 23:17 05:48 PT 15.5 H 15.7 H INR 1.4 1.4 APTT 52.0 H 54.0 H 42.1 H EKG Interpretations EKG Attestation EKG: I reviewed this ECG and interpreted as documented below: Dysrhythmias Sinus rhythms and dysrhythmias: sinus rhythm Blocks, axis, hypertrophy, ST abn Repolarization changes or abnormalities: nonspecific abnormality, ST segment, and/or T wave MT, pacemaker, normal Normal tracing: no change compared [...] 01/16/22 1024 [facility] Work Phone: 1(407) 718-662910-17-2022 History and physical note Author Gagan Shahid [facility] January 15, 2022 6:56pm Note Date/Time January 15, 2022 6 :02pm [facility] [address] [place] [address] Hospitalist H&P Signed Patient: Lani Lizama MR#: [id number] : 1950 Acct:[id number] Age/Sex: 71 / M Adm Date: 2 Loc: Room: [address] [place] [address] Type: ADM IN Attending Dr: Gagan Shahid [...] need for cardiovascular evaluation he [facility] further management and cardiology [...] % (Auto) 13.8 % (.) 01/15/22 15:00 Ciales % (Auto) 6.1 % (.) 01/15/22 15:00 Eos % (Auto) 0.9 % (.) 01/15/22 15:00 Baso % (Auto) 0.5 % (.) 01/15/22 15:00 Neut # (Auto) 5.6 x10E3/uL (1.8-7.7) 01/15/22 15:00 Lymph # (Auto) 1.0 x10E3/uL (1.00-4.8) 01/15/22 15:00 Ciales # (Auto) 0.4 x10E3/uL (0.0-0.8) 01/15/22 15:00 [...] signed by Gagan Shahid DO> 01/15/22 [address] [facility] Work Phone: 1(600) 232-513609-19-2022 Evaluation note* Encounter Date Diagnosis Assessment Notes [...] Blood glucose levels above improved. According to [employer] cgm download 12/05/2021- 2: Average glucose 119. [...] hypertension material was printed on diony. Nov, intermediate manager current use of insulin (ICD-10 - Z79.4) Nov, Hyperlipidemia (ICD-10 - E78.5) High cholesterol material was printed 06/2021 ldl 48- on statin. Nov, BMI 27.0-27.9,adult (ICD-10 - Z68.27) Eating healthy: tips to make it easier material was printed 22 pound weight loss from last visit, continue with weight loss efforts [facility] Other [id number] Miscellaneous Notes* Telephone Encounter - Vee Day - 10/20/2021 9:42 AM EDT New CBC order. 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 BMI 28.0-28.9,adult BPH associated with nocturia Cholelithiasis Controlled diabetes mellitus with diabetic polyneuropathy, with long-term current use of insulin Diabetic retinopathy Elevated serum immunoglobulin free light chains GERD (gastroesophageal reflux disease) IBS (irritable bowel syndrome) Lumbar spondylosis MGUS (monoclonal gammopathy of unknown significance) Mixed hyperlipidemia Nausea Obesi (more content not included)...[facility] ClinicComment on above: Result Comment: Electronically Signed By: FRANKIE LEMUS, Gagan Bal\Date and Time Signed: 10/17/21 12:19 [id number] Evaluation note* Encounter Date Diagnosis Assessment Notes [...] Blood glucose levels above improved. According to [employer] cgm download 07/04/2021-07/17/2021 : Average glucose 146. [...] hypertension material was printed on diony. Jun, intermediate manager current use of insulin (ICD-10 - Z79.4) Jun, BMI 30.0-30.9,adult (ICD-10 - Z68.30) Eating healthy: tips to make it easier material was printed see above Jun, Bradycardia (ICD-10 - R00.1) asymptomatic- f/u with cardiology has upcoming apt. If symptomatic i.e. light headed notify sooner [facility] Other 03-21-2022 Evaluation note* Encounter Date Diagnosis Assessment Notes Treatment Notes Treatment Clinical Notes May, Gastro-esophageal reflux disease with esophagitis, without bleeding (ICD-10 - K21.00) [facility] Other 03-08-2022 Evaluation note* Encounter Date Diagnosis [...] His MBD parameters are within the goal. [facility] Other 02-21-2022 Evaluation note* Encounter Date Diagnosis Assessment Notes Treatment Notes Treatment Clinical Notes May, Diabetes mellitus with chronic kidney disease (ICD-10 - E11.22) [facility] Other 01-10-2022 Evaluation note* Encounter Date Diagnosis Assessment Notes Treatment Notes Treatment Clinical Notes Apr, Type 2 diabetes mellitus with hyperglycemia (ICD-10 - E11.65) [facility] Other 01-10-2022 Evaluation note* Encounter Date Diagnosis [...] Blood glucose levels above improved. According to [employer] cgm download 03/28/2021-04/10/19 22: Average glucose 167. [...] was also given rx assist paperwork for [facility] if he does not qualify for BI/jardiance. Ozempic will increase to 1mg once weekly. Apr, Hyperlipidemia (ICD-10 - E78.5) High cholesterol material was printed 07/2020 ldl 64 trig 207- on statin. Apr, HTN (hypertension) (ICD-10 - I10) About hypertension material was printed on diony. Apr, intermediate manager current use of insulin (ICD-10 - Z79.4) Apr, BMI 30.0-30.9,adult (ICD-10 - Z68.30) Eating healthy: tips to make it easier material was printed see above [facility] Other 11-16-2021 Evaluation note* Encounter Date Diagnosis [...] His MBD parameters are within the goal. [facility] Other 10-05-2021 Evaluation note* Encounter Date Diagnosis [...] above target with increased variability. According to [employer] cgm download 12/07/2020-01/03/2021: Average glucose 135. Above [...] hypertension material was printed on diony. Dec, jail current use of insulin (ICD-10 - Z79.4) Dec, BMI 31.0-31.9,adult (ICD-10 - Z68.31) Eating healthy: tips to make it easier material was printed 12 pound weight loss from last visit, continue with weight loss efforts Dec, Bradycardia (ICD-10 - R00.1) Pt asymptomatic. Notified petroleum geology faculty member Dr. Velazquez. Pt has apt on Saturday next week. [place] [employer] Other Chief complaint+Reason for visit Narrative* Chief Complaint 4 month follow up Reason for Visit BMI 28.0-28.9,adult Dietary counseling and surveillance HTN (hypertension) Chronic HFrEF (heart failure with reduced ejection fraction) Chronic kidney disease [id number] HTN (hypertension) Hypercholesterolemia Ischemic cardiomyopathy Pulmonary nodule Type 2 diabetes mellitus with hyperglycemia [facility] Work Phone: Evaluation + Plan note No data available for this section General Surgery [place] Evaluation noteNo InformationN[facility]Jeff[facility] KIT digital Other Evaluation note* Diagnosis Monoclonal gammopathy- Primary Monoclonal paraproteinemia documented [facility] Diagnosis Onset Date Resolution Status Non-ST elevation myocardial infarction (NSTEMI), initial care episode acute [facility] Work Phone: Evaluation noteNo assessment information available [facility] Work Phone: Evaluation note* Diagnosis Onset Date Resolution Status BMI 26.0-26.9,adult acute Dietary counseling and surveillance acute DM2 (diabetes mellitus, type 2) acute HLD (hyperlipidemia) acute HTN (hypertension) acute [facility] Work Phone: Evaluation note* Diagnosis Onset Date Resolution Status BMI 26.0-26.9,adult acute Dietary counseling and surveillance acute DM2 (diabetes mellitus, type 2) acute HLD (hyperlipidemia) acute HTN (hypertension) acute Chronic HFrEF (heart failure with reduced ejection fraction) acute CKD (chronic kidney disease) stage 3, GFR 30-59 ml/min acute HLD (hyperlipidemia) acute [id number] acute Secondary hyperparathyroidism acute Type 2 diabetes 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 acute [facility] Work Phone: Evaluation note* Diagnosis Onset Date Resolution Status Dietary counseling and surveillance acute HTN (hypertension) acute Chronic HFrEF (heart failure with reduced ejection fraction) acute CKD (chronic kidney disease) stage 3, GFR 30-59 ml/min acute [id number] acute Secondary hyperparathyroidism acute Type 2 diabetes 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 acute Chronic HFrEF (heart failure with reduced ejection fraction) acute Chronic kidney disease acute HTN (hypertension) acute Hypercholesterolemia acute Ischemic cardiomyopathy acut e Pulmonary nodule acute Type 2 diabetes mellitus with hyperglycemia acute Medicare annual wellness visit, subsequent noneactive Screening PSA (prostate specific antigen) noneactive [facility] Work Phone: Evaluation note* Diagnosis Onset [...] counseling and surveillance acute HTN (hypertension) acute [facility] Work Phone: Evaluation note* Diagnosis Onset Date Resolution Status BMI 28.0-28.9,adult acute Dietary counseling and surveillance acute HTN (hypertension) acute Chronic HFrEF (heart failure with reduced ejection fraction) acute Chronic kidney disease acute [id number] acute HTN (hypertension) acute Hypercholesterolemia acute Ischemic cardiomyopathy acut e Pulmonary nodule acute Type 2 diabetes mellitus with hyperglycemia acute [facility] Work Phone: Evaluation note* Diagnosis Onset [...] disease) stage 3, GFR 30-59 ml/min acute [id number] acute Secondary hyperparathyroidism acute Type 2 diabetes 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 acute [facility] Work Phone: Evaluation note* Diagnosis Onset Date Resolution Status Chronic HFrEF (heart failure with reduced ejection fraction) acute Chronic kidney disease acute HTN (hypertension) acute Hypercholesterolemia acute Ischemic cardiomyopathy acut e Pulmonary nodule acute Type 2 diabetes mellitus with hyperglycemia acute Chronic HFrEF (heart failure with reduced ejection fraction) acute CKD (chronic kidney disease) stage 3, GFR 30-59 ml/min acute [id number] acute Secondary hyperparathyroidism acute Type 2 diabetes 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 acute BMI 27.0-27.9,adult acute Dietary counseling and surveillance acute HTN (hypertension) acute [facility] Work Phone: Evaluation note* Diagnosis Xerosis cutis- Primary Other specified disease of sebaceous glands Diabetes 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, without long-term current use of insulin ([facility]) Pain due to onychomycosis of toenails of both feet documented in this encounter [facility] Healthcare[facility]* Diagnosis Diabetes 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, without long-term current use of insulin ([facility])- Primary Pain due to onychomycosis of toenails of both feet documented [facility] HealthcareHistory general Narrative - Reported* Type Description [...] 11-25-16 Hospitalization History HEART STENT PLACED 03-20 [facility] Other [facility] general Narrative - ReportedNortEMUZE Other [facility] general Narrative - Reported* Type Description Date [...] 11-25-16 Hospitalization History HEART STENT PLACED 03-20 [facility] Other Hiseqhg general Narrative - Reported* Type Description Date [...] 11-25-16 Hospitalization History HEART STENT PLACED 03-20 [facility] Other [facility] general Narrative - Reported* Type Description Date [...] 11-25-16 Hospitalization History HEART STENT PLACED 03-20 [facility] Other history general Narrative - Reported* Type [...] 03/2022 Hospitalization History Chest 05/2012 Hospitalization History [facility] STENTS PLACED 11-25-16 Hospitalization History HEART STENT PLACED 03-20 Hospitalization History SEE ABOVE [facility] - [facility] Other Hisfpxp general Narrative - Reported* Type Description Date [...] STENT PLACED 03-20 Hospitalization History SEE ABOVE [facility] Other Hislfwc general Narrative - Reported* Type Description Date [...] STENT PLACED 03-20 Hospitalization History SEE ABOVE [facility] Other History general Narrative - Reported* Type [...] STENT PLACED 03-20 Hospitalization History SEE ABOVE [facility] Other History general Narrative - Reported* Type [...] History GGO and Pulmonary nodules Medical History MT 01/21 Medical History Defibrilator 02/21 Surgical History [...] 03-20 Hospitalization History SEE ABOVE Hospitalization History MT 01/21 [facility] Other Hospital Discharge instructions No data available for this section General Surgery [facility] Discharge instructions Additional Instructions Monitor glucose levels as before. DISCHARGE INSTRUCTIONS FOR CARDIAC MECHANICS SUPERVISOR PHONE NUMBER OF YOUR PHYSICIAN: [phone] PROCEDURE: Heart Cath The following instructions have [...] cold, numb, blue or white, call the petroleum geology faculty member immediately. 4. ACTIVITY: You are advised to [...] bottle, follow the instructions on the bottle. [facility] is not responsible for incorrect prescription information provided by the patient during their visit. Do not stop your medications without consulting your health care provider. Please take the list with you to your next doctor's appointment. 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 6 month follow up MEDICARE WELLNESS Reason for Visit Dietary counseling a nd surveillance HTN (hypertension) Chronic HFrEF (heart failure with reduced ejection fraction) CKD (chronic kidney disease) stage 3, GFR 30-59 ml/min [id number] Secondary hyperparathyroidism Type 2 diabetes mellitus with [...] kidney disease) stage 3, GFR 30-59 ml/min [id number] Secondary hyperparathyroidism Type 2 diabetes mellitus with [...] kidney disease) stage 3, GFR 30-59 ml/min [id number] Secondary hyperparathyroidism Type 2 diabetes mellitus with diabetic chronic kidney disease BMI 27.0-27.9,adult Dietary counseling and surveillance HTN (hypertension) Chief Complaint Admit Date Amb Documentation February 18, 2024 9:11am CC Adult Risk Stratification February 172023 10:26am IP f/u [facility] chest pain-HIGH RISK Nov 2023 9:29am 4 [...] 9 :21am Dietary counseling and surveillance Desean pabloy 2024 9:21am HTN (hypertension) April 30, 2024 [...] section and content) DATE CREATED AUTHOR 11/29/2018 [facility] DATE CREATED AUTHOR AUTHOR'S ORGANIZ ATION 10/20/2021 [facility] DATE CREATED AUTHOR AUTHOR'S ORGANIZ ATION 10/25/2021 [facility] DATE CREATED AUTHOR AUTHOR'S ORGANIZ ATION 08/13/2022 [facility] DATE CREATED AUTHOR AUTHOR'S ORGANIZ ATION 06/09/2024 [facility] DATE CREATED AUTHOR AUTHOR'S ORGANIZ ATION 06/20/2024 [facility] EPIC DATE CREATED AUTHOR AUTHOR'S ORGANIZ ATION 06/23/2024 [facility] REASON FOR VISIT (unrecogniz ed section and content) Reason Comments Lab Orders Reason Comments DM Foot Care Dm Nails Reason Comments DM Foot Care Dm nail care Care Team (unrecognized sect ion and content) Team Status: Active Member Role Status Anna [...] July 02, 2023 End: July 02, 2023 Volunteer Specialist Relationship Specialty Start Date End Date Harley Crespo DO [address] [place] [address] PCP - General Internal Medicine 07/18/18 Team Status: Inactive Member Role Status Dates Harley Crespo DO Primary Care Provider Active Gagan Shahid , Admit Provider, Attending Provider Active Team Status: Active Member Role Status Dates Harley Crespo , Primary Care Provider Active Ryan Garrett APRN WELDING TESTERElenoC Active Valerie Gallegos PA-C Active Arlen Kwong APRN Attending Provider Active Team Status: Inactive Member Role Status Dates Arlen Kwong APRN Attending Provider Active Start: March 12, 2023 End: March 12, 2023 Team Status: Inactive Member Role Status Dates Harley Crespo DO Primary Care Provider Active Start: March 12, 2023 End: March 12, 2023 Ryan Garrett APRN WELDING TESTER-Aidee Active Sta rt: March 12, 2023 End: [...] January 23, 2024 End: January 23, 2024 Volunteer Specialist Relationship Specialty Start Date End Date Harley Crespo MD [address] [place] [id number] PCP - General Internal Medicine 11/07/23 Volunteer Specialist Relationship Specialty Start Date End Date Harley Crespo MD [address] [place] [phone] PCP - General Internal Medicine 11/07/23 Volunteer Specialist Relationship Specialty Start Date End Date Harley Crespo MD [address] [place] [id number] PCP - General Internal Medicine 11/07/23 Source Comments (unrecognize d section and content) In the event this informatio n is protected by the Federal Confidentiality of Alcohol and Drug Abuse Patient Records regulations: The Federal rules restrict any use of the information to criminally investigate or prosecute any alcohol or drug abuse patient.[facility] Goals (unrecognized section and content) Goals [...] BE BASED ON THE PRIMARY CLINICAL RECORDS. [employer] provides no warranty or guarantee of the accuracy or completeness of information in this document.
[2024-07-07 08:52] LABS: Hematocrit 45.3 % (42.0-54.0); Hemoglobin 15.1 g/dL (14.0-18.0); Mean Corpuscular HGB Conc 33.3 g/dL (29.9-35.2); Mean Corpuscular Hemoglobin 30.1 pg (25.9-34.0); Mean Corpuscular Volume 90.2 fL (80.0-94.0); Mean Platelet Volume 9.5 fL (9.5-13.5); Platelet Count 163 10^3/uL (150-450); Red Blood Count 5.02 10^6/uL (4.70-6.10); Red Cell Distribution Width 15.3 % (11.0-15.0)
[2024-07-07 09:08] LABS: Bilirubin Urine SMALL (NEGATIVE); Blood Urine LARGE (NEGATIVE); Clarity Urine SL CLOUDY (CLEAR); Color Urine DK. BROWN (YELLOW); Glucose Urine UA >=1000 mg/dL (NEGATIVE); Ketones Urine TRACE mg/dL (NEGATIVE); Leukocyte Esterase Urine NEGATIVE (NEGATIVE); Nitrite Urine NEGATIVE (NEGATIVE); Protein Urine 100 mg/dL (NEG/TRACE)
[2024-07-07 09:31] LABS: Bacteria Urine SMALL #/HPF (NONE SEEN); Cast Seen? NONE SEEN #/LPF (NONE SEEN); Crystals Seen? None Seen #/HPF (None Seen); Mucus Urine NONE SEEN (NONE SEEN); RBC Urine 50-75 #/HPF (0-2); Squamous Epithelial Cell Urine RARE #/LPF (NONE/RARE); Urine Culture Indicated YES-FRMC; WBC Urine 0-2 #/HPF (NONE SEEN)
[2024-07-07 09:44] LABS: Creatinine Urine Random 69.77 mg/dL (20.00-300.00); Protein Creatinine Ratio Urine 1.78
[2024-07-07 09:49] LABS: Albumin Level 3.9 g/dL (3.4-5.0); Anion Gap 10.8; BUN Creatinine Ratio 10.2; Calcium 9.3 mg/dL (8.5-10.1); Carbon Dioxide 28.7 mmol/L (21.0-32.0); Chloride 105 mmol/L (98-107); Estimated GFR (African America 43 (>=60 mL/min/1.73m^2); Estimated GFR (Non-African Ame 36 (>=60 mL/min/1.73m^2); Glucose 196 mg/dL (74-106); Magnesium 1.9 mg/dL (1.8-2.4); Phosphorus 3.7 mg/dL (2.6-4.7); Potassium 5.5 mmol/L (3.5-5.1); Sodium 139 mmol/L (136-145); Uric Acid 3.5 mg/dL (3.5-7.2)
[2024-07-08 11:08] LABS: PTH, Intact 62 pg/mL (15-65)
== END 2024-07-07 08:13 | disposition home or self-care (01) ==
LOC: LAB 08:18
PROVIDERS: PCP Internal Medicine; Visit Provider Internal Medicine
DX: N25.81 Secondary hyperparathyroidism of renal origin (principal); E11.22 Type 2 diabetes mellitus with diabetic chronic kidney disease; I12.9 Hypertensive chronic kidney disease with stage 1 through stage 4 chronic kidney disease, or unspecified chronic kidney disease; N18.30 Chronic kidney disease, stage 3 unspecified; I50.22 Chronic systolic (congestive) heart failure; R82.998 Other abnormal findings in urine
CPT/HCPCS: 36415; 80069; 81001; 82306; 82570; 83735; 83970; 84156; 84550; 85027; 87086

== ENCOUNTER 2024-07-15 09:11 | Emergency (ER) | payer MEDICARE, OTHER, SELFPAY ==
[2024-07-15 09:15] VITALS: BP 165/97; PULSE 89; TEMP 36.8; O2SAT 98; BMI 28.2
[2024-07-15 09:42] LABS: Clarity Urine CLOUDY (CLEAR); Color Urine DK. RED (YELLOW)
--- NOTE | 2024-07-15 09:43 | ED.GENADUL1 ---
HPI HPI - General Adult General Chief complaint: Urogenital-Male Stated complaint: blood in urine Time Seen by Provider: 07/15/24 09:11 Source: patient Mode of arrival: walk-in Limitations: no limitations History of Present Illness HPI narrative: Patient presents to ED complaining of blood in the urine. He said it started about 2 weeks ago but is getting slightly worse. He denies any difficulty with his flow. He denies seeing any clots in the urine. He denies any pain with urination lower abdominal pain or back pain. No fevers or vomiting. He states he has never had this before. Patient does have a history of diabetes and does see a kidney doctor but does not have a urologist. No history of kidney stones. Patient does have multiple cardiac stents but denies chest pain or shortness of breath. He is on aspirin and Plavix. Patient has not had any hematuria in the past. No testicular pain. No other complaints at this time Related Data Home Medications ?Medication ?Instructions ?Recorded ?Confirmed alprazolam 0.5 mg tablet (Xanax) 0.5 mg PO BID 01/24/23 09/26/23 aspirin 81 mg tablet,delayed 81 mg PO DAILY 01/24/23 09/26/23 release (Adult Aspirin Regimen) bumetanide 0.5 mg tablet 0.5 mg PO .MORNING 01/24/23 09/26/23 carvedilol 25 mg tablet 12.5 mg PO Q12H 01/24/23 09/26/23 cetirizine 10 mg capsule (All Day 10 mg PO DAILY 01/24/23 09/26/23 Allergy (cetirizine)) cholecalciferol (vitamin D3) 25 25 mcg PO DAILY 01/24/23 09/26/23 mcg (1,000 unit) tablet (Vitamin D3) clopidogrel 75 mg tablet 75 mg PO .HS 01/24/23 09/26/23 docusate sodium 100 mg capsule 100 mg PO DAILY 01/24/23 09/26/23 (Colace) empagliflozin 10 mg tablet 10 mg PO QAM 01/24/23 09/26/23 (Jardiance) insulin aspart U-100 100 unit/mL 1 sliding scale dose subcut 01/24/23 09/26/23 (3 mL) subcutaneous pen (Novolog USEASDIRECTD FlexPen U-100 Insulin aspart) insulin detemir U-100 100 unit/mL 1 unit subcut DAILY 01/24/23 09/26/23 (3 mL) subcutaneous pen (Levemir FlexPen) isosorbide mononitrate 60 mg 60 mg PO BID 01/24/23 09/26/23 tablet,extended release 24 hr lisinopril 2.5 mg tablet 2.5 mg PO DAILY 01/24/23 09/26/23 lovastatin 40 mg tablet 40 mg PO .PM 01/24/23 09/26/23 multivitamin with iron-mineral 1 tab PO DAILY 01/24/23 09/26/23 nitroglycerin 0.4 mg sublingual 0.4 mg sublingual Q5M PRN chest 01/24/23 09/26/23 tablet pain pantoprazole 40 mg tablet,delayed 40 mg PO DAILY 01/24/23 01/24/23 release potassium chloride 10 mEq 10 meq PO DAILY 01/24/23 09/26/23 tablet,extended release semaglutide 1 mg/dose (2 mg/1.5 1 mg subcut QWEEK 01/24/23 09/26/23 mL) subcutaneous pen injector (Ozempic) Previous Rx's ?Medication ?Instructions ?Recorded ciprofloxacin HCl 500 mg tablet 500 mg PO BID 7 days #14 tabs 07/15/24 (Cipro) Allergies Allergy/AdvReac Type Severity Reaction Status Date / Time No Known Drug Allergies Allergy Verified 02/12/24 20:36 Opioid HPI Opioid Management Most Recent Opioid Data: Last Pain Scale 4 02/12/24 21:00 02/12/24 Review of Systems ROS Status of ROS 10 or more systems reviewed and unremarkable except as noted in history and below [facility] Medical History (Updated 07/15/24 @ 10:[address] DO) AMI (acute myocardial infarction) ?I21.9 - Acute myocardial infarction, unspecified (ICD-10) Pacemaker ?Z95.0 - Presence of cardiac pacemaker (ICD-10) Anxiety ?F41.9 - Anxiety disorder, unspecified (ICD-10) GERD (gastroesophageal reflux disease) ?K21.9 - Gastro-esophageal reflux disease without esophagitis (ICD-10) Hypertension ?I10 - Essential (primary) hypertension (ICD-10) Diabetes ?E11.9 - Type 2 diabetes mellitus without complications (ICD-10) Surgical History (Updated 01/24/23 @ 19:49 by Cammy Adler) History of heart artery stent ?Z95.5 - Presence of coronary angioplasty implant and graft (ICD-10) Social History (Updated 01/24/23 @ 20:00 by Cammy Adler) Within the past year, how often did you have a drink containing alcohol: never Within the past year, how often did you have six or more drinks on one occasion: never Score interpretation: A score less than 4 is consistent with normal alcohol consumption. Smoking status: Former smoker Non-prescribed substance use: denies use Previous occupational history: works 1 day a week Highest level of school completed/degree received: high school graduate Are you now , , , , never or living with a partner: In a typical week, how many times do you talk on the telephone with family, friends, or neighbors: 3 or more times per week How often do you get together with friends or relatives: once per week How often do you attend sikhism or alevism services: 1-3 times per year Little interest or pleasure in doing things: not at all Feeling down, depressed, or hopeless: not at all Feel stressed/tense/nervous/anxious/difficulty sleeping: to some extent Life stressors: other Life stressor details: getting older Exam Narrative Exam Narrative: Time Seen: [] Vital Signs: [Per nurse's notes.] General: [Alert] Skin: [Warm, dry, no rash.] Head: [Normocephalic, atraumatic.] Neck: [Supple, trachea midline.] Eye: [Pupils are equal, round and reactive to light, extraocular movements are intact, normal conjunctiva.] Ears, nose, mouth and throat: oral mucosa moist. Cardiovascular: [Regular rate and rhythm, no murmur.] Respiratory: [Lungs are clear to auscultation, respirations are non-labored, breath sounds are equal.] Chest wall: [No tenderness, no deformity.] Gastrointestinal: [Soft, nontender, non distended, normal bowel sounds.] MSK: 5 out of 5 muscle strength x 4 extremities no calf pain or edema Lymphatics: [No lymphadenopathy.] Psychiatric: [Cooperative, appropriate mood & affect.] Neurological: [Alert and oriented to person, place, time, and situation, no focal neurological deficit observed.] Constitutional Vital Signs, click to edit/add: Last Vital Signs Temp 98.2 F 07/15/24 09:15 Pulse 88 07/15/24 10:34 Resp 18 07/15/24 10:34 BP 126/88 07/15/24 10:34 Pulse Ox 98 07/15/24 10:34 O2 Del Method Room Air 07/15/24 09:15 Course Vital Signs Vital signs: Vital Signs Temperature 98.2 F 07/15/24 09:15 Pulse Rate 89 07/15/24 09:15 Respiratory Rate 18 07/15/24 09:15 Blood Pressure 165/97 H 07/15/24 09:15 Pulse Oximetry 98 07/15/24 09:15 Oxygen Delivery Method Room Air 07/15/24 09:15 Temperature 98.2 F 07/15/24 09:15 Pulse Rate 88 07/15/24 10:34 Respiratory Rate 18 07/15/24 10:34 Blood Pressure 126/88 07/15/24 10:34 Pulse Oximetry 98 07/15/24 10:34 Oxygen Delivery Method Room Air 07/15/24 09:15 Medical Decision Making MDM Narrative Medical decision making narrative: Patient's labs are negative for acute findings. Patient does have a slightly elevated creatinine which is normal for him. He does have some chronic renal disease. Patient does have hematuria and it is difficult to evaluate if his urine is infected or not. Patient will be sent home with Cipro for 1 week. Please call urology office today to schedule a follow-up appointment for the painless hematuria. Patient was given Dr. Umana for outpatient follow-up. Patient expresses understanding and is comfortable with care plan for home and outpatient follow-up. Differential Diagnosis Differential Diagnosis: UTI, hematuria, kidney stone Lab Data Lab results reviewed: Yes I reviewed the patient's lab results Labs: Lab Results 07/15/24 07/15/24 Range/Units 09:21 09:45 WBC 8.1 (4.0-11.0) 10^3/uL RBC 4.73 (4.70-6.10) 10^6/uL Hgb 14.5 (14.0-18.0) g/dL Hct 42.8 (42.0-54.0) % MCV 90.5 (80.0-94.0) fL MCH 30.7 (25.9-34.0) pg MCHC 33.9 (29.9-35.2) g/dL RDW 15.0 (11.0-15.0) % Plt Count 203 (150-450) 10^3/uL MPV 9.6 (9.5-13.5) fL Neut % (Auto) 64.8 (43.0-75.0) % Lymph % (Auto) 21.1 (20.5-60.0) % [place] % (Auto) 9.5 (1.7-12.0) % Eos % (Auto) 3.1 (0.9-7.0) % Baso % (Auto) 0.9 (0.2-2.0) % Neut # (Auto) 5.3 (1.4-6.5) 10^3/uL Lymph # (Auto) 1.7 (1.2-3.8) 10^3/uL [place] # (Auto) 0.8 (0.3-0.8) 10^3/uL Eos # (Auto) 0.3 (0.0-0.7) 10^3/uL Baso # (Auto) 0.1 (0.0-0.1) 10^3/uL Abs Immat Gran (auto) 0.05 H (0.00-0.03) 10^3/uL Imm/Tot Granulo (auto) 0.6 H (0.0-0.5) % Sodium 140 (136-145) mmol/L Potassium 4.1 (3.5-5.1) mmol/L Chloride 104 (98-107) mmol/L Carbon Dioxide 28.1 (21.0-32.0) mmol/L Anion Gap 12.0 BUN 19.0 H (7.0-18.0) mg/dL Creatinine 1.74 H (0.70-1.30) mg/dL Est GFR ( Amer) 47 L (>=60 mL/min/1.73m^2) Est GFR (Non-Af Amer) 39 L (>=60 mL/min/1.73m^2) BUN/Creatinine Ratio 10.9 Glucose 142 H (74-106) mg/dL Calcium 8.9 (8.5-10.1) mg/dL Total Bilirubin 0.6 (0.2-1.0) mg/dL AST 22 (15-37) U/L ALT 30 (16-63) U/L Alkaline Phosphatase 128 H (46-116) U/L Total Protein 7.5 (6.4-8.2) g/dL Albumin 3.8 (3.4-5.0) g/dL Globulin 3.7 g/dL Albumin/Globulin Ratio 1.0 Urine Color Dk. red (YELLOW) Urine Clarity Cloudy A (CLEAR) Urine pH Color interference A (5.0-9.0) Ur Specific [place] 1.020 (1.005-1.025) Urine Protein Color interference A (NEG/TRACE) mg/dL Urine Glucose (UA) Color interference A (NEGATIVE) mg/dL Urine Ketones Color interference A (NEGATIVE) mg/dL Urine Occult Blood Color interference A (NEGATIVE) Urine Nitrite Color interference A (NEGATIVE) Urine Bilirubin Color interference A (NEGATIVE) Urine Urobilinogen Color interference A (0.2-1.0) EU/dL Ur Leukocyte Esterase Color interference A (NEGATIVE) Urine RBC 75-100 A (0-2) #/HPF Urine WBC None seen (NONE SEEN) #/HPF Ur Squamous Epith Cells Rare (NONE/RARE) #/LPF Urine Crystals None seen (None Seen) #/HPF Urine Bacteria Trace A (NONE SEEN) #/HPF Urine Casts None seen (NONE SEEN) #/LPF Urine Mucus None seen (NONE SEEN) Ur Culture Indicated? No Discharge Plan Discharge Chief Complaint: Urogenital-Male Clinical Impression: Hematuria Patient Disposition: Home, Self-Care Time of Disposition Decision: 10:28 Condition: Good Mode of Transportation: Private Vehicle Prescriptions / Home Meds: New ciprofloxacin HCl [Cipro] 500 mg tablet 500 mg PO BID 7 Days Qty: 14 0RF No Action potassium chloride 10 mEq tablet extended release 10 meq PO DAILY bumetanide 0.5 mg tablet 0.5 mg PO .MORNING docusate sodium [Colace] 100 mg capsule 100 mg PO DAILY pantoprazole 40 mg tablet,delayed release (DR/EC) 40 mg PO DAILY isosorbide mononitrate 60 mg tablet extended release 24 hr 60 mg PO BID All Day Allergy (cetirizine) 10 mg capsule 10 mg PO DAILY Jardiance 10 mg tablet 10 mg PO QAM alprazolam [Xanax] 0.5 mg tablet 0.5 mg PO BID clopidogrel 75 mg tablet 75 mg PO .HS lisinopril 2.5 mg tablet 2.5 mg PO DAILY lovastatin 40 mg tablet 40 mg PO .PM aspirin [Adult Aspirin Regimen] 81 mg tablet,delayed release (DR/EC) 81 mg PO DAILY multivitamin with iron-mineral Tablet 1 tab PO DAILY cholecalciferol (vitamin D3) [Vitamin D3] 25 mcg (1,000 unit) tablet 25 mcg PO DAILY insulin aspart U-100 [Novolog FlexPen U-100 Insulin] 100 unit/mL (3 mL) insulin pen 1 sliding scale dose subcut USEASDIRECTD Levemir FlexPen 100 unit/mL (3 mL) insulin pen 1 unit subcut DAILY Ozempic 1 mg/dose (2 mg/1.5 mL) pen injector 1 mg subcut QWEEK nitroglycerin 0.4 mg tablet, sublingual 0.4 mg sublingual Q5M PRN (Reason: chest pain) carvedilol 25 mg tablet 12.5 mg PO Q12H Patient Comments: Patient takes 12.5mg twice a day Print Language: Italian Instructions: Hematuria (ED) Referrals: Harley Goodman DO [Primary Care Provider] - 1 week Ese Combs MD [Physician] - 1 week Discharge Date/Time: 07/15/24 10:35
[2024-07-15 09:55] LABS: Bilirubin Urine COLOR INTERFERENCE (NEGATIVE); Blood Urine COLOR INTERFERENCE (NEGATIVE); Glucose Urine UA COLOR INTERFERENCE mg/dL (NEGATIVE); Ketones Urine COLOR INTERFERENCE mg/dL (NEGATIVE); Leukocyte Esterase Urine COLOR INTERFERENCE (NEGATIVE); Nitrite Urine COLOR INTERFERENCE (NEGATIVE); Protein Urine COLOR INTERFERENCE mg/dL (NEG/TRACE); Urobilinogen Urine COLOR INTERFERENCE EU/dL (0.2-1.0); pH Urine COLOR INTERFERENCE (5.0-9.0)
[2024-07-15 10:00] LABS: Bacteria Urine TRACE #/HPF (NONE SEEN); Crystals Seen? None Seen #/HPF (None Seen); Mucus Urine NONE SEEN (NONE SEEN); RBC Urine 75-100 #/HPF (0-2); Squamous Epithelial Cell Urine RARE #/LPF (NONE/RARE); WBC Urine NONE SEEN #/HPF (NONE SEEN)
[2024-07-15 10:01] LABS: Cast Seen? NONE SEEN #/LPF (NONE SEEN); Urine Culture Indicated NO
[2024-07-15 10:04] LABS: Basophils Absolute Auto 0.1 10^3/uL (0.0-0.1); Basophils Percent Auto 0.9 % (0.2-2.0); Eosinophils Absolute Auto 0.3 10^3/uL (0.0-0.7); Eosinophils Percent Auto 3.1 % (0.9-7.0); Hematocrit 42.8 % (42.0-54.0); Hemoglobin 14.5 g/dL (14.0-18.0); Immature Granulocytes Abs Auto 0.05 10^3/uL (0.00-0.03); Immature Granulocytes Pct Auto 0.6 % (0.0-0.5); Lymphocytes Absolute Auto 1.7 10^3/uL (1.2-3.8); Lymphocytes Percent Auto 21.1 % (20.5-60.0); Mean Corpuscular HGB Conc 33.9 g/dL (29.9-35.2); Mean Corpuscular Hemoglobin 30.7 pg (25.9-34.0); Mean Corpuscular Volume 90.5 fL (80.0-94.0); Mean Platelet Volume 9.6 fL (9.5-13.5); Monocytes Absolute Auto 0.8 10^3/uL (0.3-0.8); Monocytes Percent Auto 9.5 % (1.7-12.0); Neutrophils Absolute Auto 5.3 10^3/uL (1.4-6.5); Neutrophils Percent Auto 64.8 % (43.0-75.0); Platelet Count 203 10^3/uL (150-450); Red Blood Count 4.73 10^6/uL (4.70-6.10); White Blood Count 8.1 10^3/uL (4.0-11.0)
[2024-07-15 10:23] LABS: Alanine Aminotransferase 30 U/L (16-63); Albumin Level 3.8 g/dL (3.4-5.0); Alkaline Phosphatase 128 U/L (46-116); Aspartate Amino Transferase 22 U/L (15-37); BUN Creatinine Ratio 10.9; Bilirubin Total 0.6 mg/dL (0.2-1.0); Calcium 8.9 mg/dL (8.5-10.1); Carbon Dioxide 28.1 mmol/L (21.0-32.0); Chloride 104 mmol/L (98-107); Estimated GFR (African America 47 (>=60 mL/min/1.73m^2); Estimated GFR (Non-African Ame 39 (>=60 mL/min/1.73m^2); Globulin 3.7 g/dL; Glucose 142 mg/dL (74-106); Potassium 4.1 mmol/L (3.5-5.1); Sodium 140 mmol/L (136-145); Total Protein 7.5 g/dL (6.4-8.2)
[2024-07-15 10:34] VITALS: BP 126/88; PULSE 88; O2SAT 98
== END 2024-07-15 10:35 | disposition home or self-care (01) ==
PROVIDERS: Emergency Provider Emergency Medicine; PCP Internal Medicine
DX: R31.9 Hematuria, unspecified (principal); E11.9 Type 2 diabetes mellitus without complications; Z79.82 Long term (current) use of aspirin; Z79.02 Long term (current) use of antithrombotics/antiplatelets; Z95.5 Presence of coronary angioplasty implant and graft; Z95.0 Presence of cardiac pacemaker; Z87.891 Personal history of nicotine dependence; Z79.85 Long-term (current) use of injectable non-insulin antidiabetic drugs; Z79.4 Long term (current) use of insulin; Z79.84 Long term (current) use of oral hypoglycemic drugs
CPT/HCPCS: 36415; 80053; 81001; 85025; 99283

== ENCOUNTER 2024-07-30 08:29 | Outpatient (OUT) | payer MEDICARE, OTHER, SELFPAY ==
--- NOTE | 2024-07-30 08:35 | CT_ITS ---
The [address] [address] Patient Name: LANI LIZAMA MRN: [id number] date: 1950 Sex: M Assigned Patient Location: CT Current Patient Location: CT Accession/Order Number: [id number] Exam Date: 07/30/2024 09:12 Report Date: 07/30/2024 09:16 At the request of: DEVEN CRESPO DO Procedure: CT abdomen pelvis wo con CT ABDOMEN AND PELVIS WITHOUT INTRAVENOUS CONTRAST: CLINICAL HISTORY: Gross Hematuria COMPARISON: CT abdomen and pelvis 02/03/2022 TECHNIQUE: Spiral images were obtained through the abdomen and pelvis without intravenous contrast. This CT exam was performed using one or more following dose reduction techniques: Automated exposure control, adjustment of the mA and/or kV according to patient size, or use of iterative reconstruction technique. FINDINGS: Lung Bases: [Mild bibasilar atelectasis.] Organs:Suboptimal evaluation due to lack of IV contrast. Cholelithiasis. No CBD dilatation. Liver pancreas spleen and adrenal glands all appear unremarkable. Kidneys demonstrate no stone or hydronephrosis. Aorta demonstrates severe calcification without aneurysm.[ GI: Stomach is grossly unremarkable. Small bowel appears nondilated. Colonic diverticulosis.[ Pelvis:[A mass is noted involving the posterior wall of the urinary bladder measuring 1.9 x 1.9 x 1.9 cm. Prostate gland is normal in size. Peritoneum/Retroperitoneum:No free air or free fluid or lymphadenopathy.[ Abd wall/Bones:Abdominal wall demonstrate no acute findings. Osseous structures demonstrate degenerative change.[ CT/CT abdomen pelvis wo con IMPRESSION: Mass posterior wall urinary bladder 1.9 x 1.9 x 1.9 cm. Malignancy cannot BE excluded and further evaluation with cystoscopy is recommended. Impression dictated by: Hilario Teresa Jr., D.O. 07/30/2024 9:16 AM Dictation Location: [facility] [employer] Electronically authenticated by: [id number] Y Date: 07/30/2024 09:16
== END 2024-07-30 08:30 | disposition home or self-care (01) ==
LOC: CT 08:29
PROVIDERS: PCP Internal Medicine; Visit Provider Internal Medicine
DX: R31.0 Gross hematuria (principal); D41.4 Neoplasm of uncertain behavior of bladder; N32.89 Other specified disorders of bladder
CPT/HCPCS: 74176

== ENCOUNTER 2024-08-13 00:16 | Emergency (ER) | payer MEDICARE, OTHER, SELFPAY ==
[2024-08-13] VITALS (41 sets, daily range): BP systolic 103–182; BP diastolic 62–99; PULSE 72–94; TEMP 36.6; O2SAT 94–97; BMI 28.8
--- NOTE | 2024-08-13 00:18 | ECG_ITS ---
The [facility] Test Date: 2024-08-13 Pat Name: LANI LIZAMA Department: Room: - Gender: Male [employer]: : 1950 Requested By: [id number] Order Number: [id number] Reading MD: LUISITO STEPHENSON M.D. Measurements Intervals [place] Rate: 92 P: 90 CO: 176 QRS: -37 QRSD: 150 T: 102 QT: 420 QTc: 470 Interpretive Statements NORMAL SINUS RHYTHM 31166 Electronic ventricular pacemaker Biventricular pacemaker detected Abnormal ECG Compared to ECG 02/12/2024 20:35:13 No significant changes Electronically Signed On 08-13-2024 7:00:06 EDT by LUISITO STEPHENSON M.D.
--- OUTSIDE RECORDS SUMMARY | 2024-08-13 00:22 | XMS_ITS | CCD ---
Author Organization [facility] Care Team Providers Care Supervisor Shuttle Veneering Name Role Phone NETO BISHOPAB A Admitting Unavailable VIJAY, EHAB A Attending Unavailable HARLEY CRESPO Referring Unavailable HARLEY CRESPO Primary Care Unavailable ELTAHAWJo, PINKY A Surgeon Unavailable OR Procedure Practitioner Unavailab le ELTAADARSH, PINKY A Admitting Unavailable VIJAY, PINKY A Attending Unavailable HARLEY CRESPO Referring Unavailable HARLEY CRESPO Primary Care Unavailable Arlen Kwong Unavailable Kingsley Good Unavailable Shannon Escobar Unavailable HARLEY CRESPO Primary Care Physician Harley Crespo DO Primary Care Provider DO Harley Crespo Primary Care Provider [phone] JULY Kwong Attending Provider [phone] DO Gagan Shahid Admit Provider DO Gagan [...] Consulting Unavailable CHERIE, DR CARVALHO Admitting Unavailable BALL, DR CARVALHO Attending Unavailable BALL, DR CARVALHO Primary Care Unavailable CHERIE, DR CARVALHO Consulting Unavailable ZIEBFLAVIO, DR HIGINIO Sanchez Consulting Unavailable ZIEBFLAVIO, DR HIGINIO Sanchez Consulting Unavailable CHERIE, DR CARVALHO Primary Care Unavailable KEVIN ARTEAGA Attending Unavailable JENNI, KEVIN Admitting Unavailable JENIN, KEVIN Consulting Unavailable ELTAHAWY, DR LOWE Consulting [...] Unavailable DO Harley Crespo Primary Care Provider DesireeBERTHA stricklandN John Paulnakul Kayden Attending Provider Harley Crespo MD Primary Care Provider Harley Crespo DO Primary Care Provider [phone] Lani LEMUS, Tamara Álvarez Attending Provider KENNETH TAVERA Attending Unavailable KENNETH TAVERA Attending Unavailable KENNETH TAVERA Attending Unavailable KENNETH TAVERA Attending Unavailable Harley Crespo DO Primary Care Provider Lani LEMUS, Tamara Álvarez Attending Provider LatishaKingsley kirby Attending Unavailable Latisha, Kingsley Admitting Unavailable Cherie [facility] Unavailable Tamara Amaro Admitting Unavail able Tamara Amaro Attending Unavail able KEVIN ARTEAGA Referring Unavailable SELLERS, ARAMIS Attending Unavailable HORANI, DEJUAN Admitting Unavailable KATKOHEMALATHA Referring Unavailable NESTORHEIDY Attending Unavailable HORANI, DEJUAN Admitting Unavailable MOUKARBEL, LUISITO Referring Unavailable JENNI, KEVIN Referring Unavailable JENNI, KEVIN Referring Unavailable AMERICO, BONAVENTURE Referring Unavailable JENNI, KEVIN Referring Unavailable JENNI, KEVIN Referring Unavailable CRISTOPHER, EMEKA Referring Unavailable CRISTOPHER, EMEKA Referring Unavailable JENNI, KEVIN Referring Unavailable JENNI, KEVIN Referring Unavailable JENNI, KEVIN Referring Unavailable JENNI, KEVIN Referring Unavailable JENNI, KEVIN Referring Unavailable JENNI, KEVIN Referring Unavailable JENNI, KEVIN Referring Unavailable JENNI, KEVIN Referring Unavailable EKWENNA, OBI Referring Unavailable HORANI, DEJUAN Referring Unavailable HORANI, DEJUAN Referring Unavailable YOST, YFN Referring Unavailable AMERICO, BONAVENTURE Referring Unavailable ELTAHAWY, EHAB Attending Unavailable JENNIKEVIN Attending Unavailable ELTAHAWY, EHAB Attending Unavailable JENNI, KEVIN Referring Unavailable CRISTOPHER, EMEKA Referring Unavailable CRISTOPHER, EMEKA Referring Unavailable CRISTOPHER, EMEKA Referring Unavailable JENNI, KEVIN Referring Unavailable CRISTOPHER, EMEKA Referring Unavailable JENNI, KEVIN Referring Unavailable JENNI, KEVIN Referring Unavailable MOUKARBEL, LUISITO Referring Unavailable JENNI, KEVIN Referring Unavailable CRISTOPHER, EMEKA Referring Unavailable LARKIN, Jason Sanchez Admitting Unavailable LARKIN, Jason Sanchez Referring Unavailable LARKIN, Jason Sanchez Attending Unavailable LARKIN, Jason Sanchez Attending Unavailable LARKIN, Jason Sanchez Admitting Unavailable BALL, HARLEY Referring Unavailable LARKIN, Jason Sanchez Attending Unavailable Allergies Allergy Classification Reported Allergen(s) Allergy Type Date of Onset Reaction(s) Facility (1 source) 20234,00; Translations: [Unknown] Propensity to adverse reactions (disorder) 02-10-20 [facility] Repository (6 sources) semaglutide; Translations: [semaglutide] Allergy to substance 05-28-19 [facility] Comment on above: constipation (1 source) No Known Medication Allergies; Translations: [No Known Medication Allergies] Propensity to adverse reactions (disorder) [facility] Repository Medications Current Medications Medication [...] six hours as needed for pain HYDROcodone-acetaminophen ([place]) 5-325 MG tablet TAKE 1 TABLET BY MOUTH EVERY 4 TO 6 HOURS NEEDED FOR PAIN 08/14/2022 Active ALPRAZolam 0.5 mg oral tablet (20 sources) Benzodiazepine Start: 06-22-2020 End: 02-09-2024 take 1 tablet by mouth three times daily as needed for anxiety alprazolam 0.5 mg Tab 0.5 mg = 1 tab(s), Oral, TID, PRN for anxiety, Refills(s) 0 Start Date: 09/07/21 Status: Ordered Repeat number: 1 Comment on above: Take 0.5 mg by mouth at bedtime as neede d. amLODIPine 10 mg oral tablet (20 sources) Dihydropyridine Calcium Channel Jason Start: 09-07-2021 take 1 tablet by mouth once daily amLODIPine 10 mg Tab 10 mg = 1 tab(s), Oral, Daily, Refills(s) 0 Start Date: 09/07/21 Status: Ordered Repeat number: 1 Start: 06-22-2020 End: 06-18-2023 take 2 tablets by mouth once daily Amlodipine 5 mg Tablet Discontinued 10 MG PO Daily June 22, 2020 12:00am June 18, 2023 11:01am Start: 06-22-2020 End: 06-18-2023 take 10 mg [...] Refills(s) 0 Start Date: 09/07/21 Status: Ordered Repeat number: 1 Start: 06-22-2020 take 1 tablet by bhavik th once daily in the morning Aspirin 81 mg Tablet Active 81 MG PO Every morning June 22, 2020 12:00am take 1 tablet by mouth once [...] time. Active cholecalciferol 0.025 mg oral capsule (20 sources) Vitamin D Start: 07-02-19 take 1 capsule by mouth once daily in the morning Cholecalciferol (Vitamin D3) 25 mcg (1,000 unit) capsule Active 25 MCG PO Every morning July 02, 2023 12:00am take 1 capsule by mouth in the [...] tablet (20 sources) [id number] Platelet Inhibitor Start: 5 take 1 tablet by mouth once daily in the morning Clopidogrel 75 mg tablet Active 75 MG PO Every morning May 28, 2024 1:00am TAKE 1 TABLET BY MOUTH EVERY DAY Start: 05-17-2024 End: 05-28-2024 take 1 tablet by mouth once daily Clopidogrel 75 mg tablet Discontinued 0 .ROUTE .COMPLEX 90 May 17, 2024 7:29pm May 28, 2024 12:22pm TAKE 1 TABLET BY MOUTH EVERY DAY Start: 06-18-2023 End: 10-17-2023 take 1 tablet by mouth once daily Clopidogrel 75 mg tablet Discontinued 0 .ROUTE .COMPLEX 90 June 18, 2023 4:03pm October 17, 2023 10:10am TAKE 1 TABLET BY MOUTH EVERY DAY Start: 09-07-2021 End: 05-17-2024 take 1 tablet by mouth once daily Clopidogrel 75 mg tablet Discontinued 75 MG PO Daily October 17, 2023 10:06am May 17, 2024 7:29pm Start: 07-11-2020 End: 07-13-2020 take 1 tablet by mouth once daily Clopidogrel 75 mg Tablet Discontinued 75 MG PO Daily July 11, 2020 12:00am July 13, 2020 4:14pm Comment on above: Take 75 mg by mouth once daily. empagliflozin 10 mg oral tablet (20 sources) Sodium-Glucose Cotransporter 2 Inhibitor Start: End: 5 take 1 tablet by mouth once daily in the morning Jardiance 10 mg oral tablet 10 mg = 1 tab(s), Oral, qAM, Refills(s) 0 Start Date: 09/07/21 Status: Ordered Repeat number: 1 empagliflozin (Gary REDDY) 25 mg tablet q 24 HR. 0 Active Comment on above: q 24 HR. flash glucose sensor (FreeStyle Morris 2 Sensor) (7 sources) Start: 01-23-2024 flash glucose sensor (FreeStyle [...] to 40 units/day) insulin aspart, human 100 unt/ml injectable solution (20 sources) Insulin Analog Start: 08-03-2024 inject 12 [IU] by subcutaneous injection once daily NovoLOG 100 units/mL injectable solution 12 unit(s), SubCutaneous, Daily Start Date: 08/03/24 Status: Ordered Repeat number: 1 Insulin Aspart 1 00 UNIT/ML solution Inject [...] >200 1/2 dose) Subcutaneous ac, hs Active insulin degludec 100 unt/ml injectable solution (5 sources) Insulin Analog Start: 08-03-2024 inject 14 [IU] by subcutaneous injection once daily Tresiba 100 units/mL subcutaneous solution 14 unit(s), SubCutaneous, Daily Start Date: 08/03/24 Status: Ordered Repeat number: 1 Start: 03-12-2023 inject 20 [IU] by fenton bcutaneous injection once daily in the morning Tresiba FlexTouch 100 UNIT/ML 20 units Subcutaneous qam Mar, Active Insulin Degludec (Tresiba Flextouch U-100) 100 unit/mL (3 mL) insulin pen (7 sources) Start: 08-03-2024 Insulin Deglud ec (Tresiba Flextouch U-100) 100 unit/mL (3 mL) insulin pen Active 16 UNIT SUBCUT Every morning August 03, 2024 9:38am Start: 04-30-2024 End: 08-03-2024 Insulin Degludec (Tresiba Fl extouch U-100) 100 unit/mL (3 mL) insulin pen Discontinued 14 UNIT SUBCUT Every morning April 30, 2024 1:00am August 03, 2024 9:41am Start: 04-30-2024 Insulin Deglud ec (Tresiba Flextouch U-100) 100 unit/mL (3 mL) insulin pen Active 14 UNIT SUBCUT Every morning April 30, 2024 1:00am Start: 04-30-2024 Insulin Deglud ec (Tresiba Flextouch U-100) 100 unit/mL (3 mL) insulin pen Active 14 UNIT SUBCUT Every morning April 30, 2024 12:00am 3 ml insulin glargine 100 unt/ml pen injector (6 sources) Insulin Analog insulin glargine (Lantus SoloStar) 100 UNIT/ML pen Subcutaneous for 90 Active Humulin N (18 sources) Start: 09-07-2021 inject 15 [IU] by subcutaneous injection twice daily Humulin N 15 unit(s), SubCutaneous, BID, Refills(s) 0 Start Date: 6/9/22 Status: Ordered Start: 07-11-2020 End: 01-15-2022 Insulin [...] oral tablet (20 sources) Nitrate Vasodilator Start: 05-08-19 End: 05-28-19 take 1 tablet by mouth twice daily Isosorbide Mononitrate 60 mg tablet extended release 24 hr Discontinued 0 .ROUTE .COMPLEX 180 May 08, 2024 5:15pm May 28, 2024 12:22pm TAKE 1 TABLET BY MOUTH TWICE A DAY FOR 30 DAYS Start: 09-07-2021 End: 05-08-2024 take 1 tablet by mouth twice daily in the morning Isosorbide Mononitrate 60 mg tablet extended release 24 hr Active 60 MG PO Every morning May 28, 2024 1:00am TAKE 1 TABLET BY MOUTH TWICE A DAY FOR 30 DAYS Start: 06-22-2020 End: 01-17-2022 take 1 tablet by mouth once daily, then take 1 tablet by mouth every twenty-four hours Isosorbide Mononitrate 60 mg Tablet Extended Release 24 Hr Discontinued 60 MG PO Daily June 22, [...] 3 ml liraglutide 6 mg/ml pen injector (15 sources) GLP-1 Receptor Agonist Start: 06-17-2024 End: 08-03-2024 Liraglutide (Victoza 3-Michelet) 0.6 mg/0.1 mL (18 mg/3 mL) pen injector Active 1.8 MG SUBCUT Daily August 03, 2024 12:00am star * Start: 05-28-2024 End: 06-17-2024 inject 0.6 mg by subcutaneous injection once daily in the morning, then inject 1.8 mg by subcutaneous injection once daily Liraglutide (Victoza 3-Michelet) 0.6 mg/0.1 mL (18 mg/3 mL) pen injector Discontinued 1.8 MG SUBCUT Every morning May 28, 2024 1:00am June 17, 2024 10:09am inject 0.6mg subcutaneously once daily x 7 days; then 1.2mg daily, not to exceed 1.8mg/day subcut Start: 04-30-2024 End: 05-28-2024 inject 0.6 mg by subcutaneous injection once daily, then inject 1.8 mg by subcutaneous injection once daily Liraglutide (Victoza 3-Michelet) 0.6 mg/0.1 mL (18 mg/3 mL) pen injector Discontinued 0 SUBCUT .COMPLEX April 30, 2024 1:00am May 28, 2024 12:22pm inject 0.6mg subcutaneously once daily x 7 [...] 1.2mg daily, not to exceed 1.8mg/day subcut lisinopril 2.5 mg oral tablet (20 sources) Angiotensin Converting Enzyme Inhibitor Start: 08-03-2024 take 1 tablet by mouth once daily lisinopril 2.5 mg Tab 2.5 mg = 1 tab(s), Oral, Daily Start Date: 08/03/24 Status: Ordered Repeat number: 1 Start: 08-03-2024 take 1 tablet by bhavik th twice daily Lisinopril 2.5 mg tablet Active 2.5 MG PO Twice daily August 03, 2024 12:00am Start: 07-02-2023 End: 02-24-2024 take 1 tablet by mouth twice daily Lisinopril 2.5 mg tablet Discontinued 2.5 MG PO Twice daily July 02, 2023 12:00am February 24, 2024 10:45am Start: 06-18-2023 End: 06-18-2023 take 1 tablet by mouth twice daily Lisinopril 2.5 mg tablet Discontinued 2.5 MG PO Twice daily June 18, 2023 12:00am June 18, 2023 11:58am Start: 05-02-2022 take 1 tablet by bhavik [...] Take 20 mg by mouth once daily. lovastatin 40 mg oral tablet (20 sources) HMG-CoA Reductase Inhibitor Start: 09-07-2021 take 1 tablet by mouth once daily at bedtime lovastatin 40 mg Tab 40 mg = 1 tab(s), Oral, Once a day (at bedtime), Refills(s) 0 Start Date: 09/07/21 Status: Ordered Repeat number: 1 Start: 06-22-2020 End: 06-18-2023 take 2 tablets by mouth once daily in the evening Lovastatin 20 mg Tablet Discontinued 40 MG PO Every evening June 22, 2020 12:00am June 18, 2023 11:03am Start: 06-22-2020 End: 06-18-2023 take 40 mg [...] succinate 100 mg extended release oral tablet (20 sources) beta-Adrenergic Jason Start: 08-03-2024 metoprolol succinate 100 mg ER Tab 150 mg = 1.5 tab(s), Oral, Daily Start Date: 08/03/24 Status: Ordered Repeat number: 1 Start: 08-03-2024 take 1 tablet by bhavik th once daily in the morning Metoprolol Succinate 100 mg tablet extended release 24 hr Active 100 MG PO Every morning August 03, 2024 9:40am Start: 08-03-2024 take 1 tablet by bhavik th once daily Metoprolol Succinate 50 mg tablet extended release 24 hr Active 50 MG PO daily August 03, 2024 12:00am Start: 04-30-2024 take 1 tablet by bhavik th once daily Metoprolol Succinate 100 mg tablet extended release 24 hr Active 100 MG PO Daily April 30, 2024 9:46am Start: 04-30-2024 End: 05-28-2024 take 1 tablet by mouth once daily Metoprolol Succinate 50 mg tablet extended release 24 hr Discontinued 50 MG PO Daily April 30, 2024 10:47am May 28, 2024 12:19pm Start: 04-30-2024 End: 04-30-2024 Metoprolol Succinate 50 mg t ablet extended release 24 hr Discontinued 150 MG PO Daily April 30, 2024 1:00am April 30, 2024 10:48am Start: 01-23-2024 End: 08-03-2024 Metoprolol Succinate 100 mg tablet extended release 24 hr Discontinued 150 MG PO Every morning April 30, 2024 10:46am August 03, 2024 9:41am Start: 01-23-2024 take 150 mg by mouth once rg y Metoprolol Succinate Active 150 MG PO Daily January 23, 2024 9:33am Start: 10-17-2023 End: 01-23-2024 take 1 tablet by mouth once daily Metoprolol Succinate 100 mg tablet extended release 24 hr Discontinued 100 MG PO Daily October 17, 2023 10:09am January 23, 2024 9:42am Start: 10-17-2023 End: 01-23-2024 take 1 tablet by mouth once daily Metoprolol Succinate 50 mg tablet extended release 24 hr Discontinued 50 MG PO Daily October 17, 2023 12:00am January 23, 2024 9:36am Start: 10-17-2023 End: 01-23-2024 take 50 mg by mouth once daily Metoprolol Succinate Di scontinued 50 MG PO Daily October 17, 2023 12:00am January 23, 2024 9:36am Start: 06-18-2023 End: 10-17-2023 Metoprolol Succinate 100 mg tablet extended release 24 hr Discontinued 150 MG PO Daily June 18, 2023 12:00am October 17, 2023 10:10am Start: 06-18-2023 End: 10-17-2023 take 150 mg [...] tablet Orally Once a day Active Multivitamin tablet (1 source) Start: 08-03-2024 take 1 tablet by mouth once daily in the morning Multivitamin tablet Active 1 TAB PO Every morning August 03, 2024 9:41am mupirocin 0.02 mg/mg topical ointment (1 source) RNA Synthetase Inhibitor Antibacterial Start: 07-30-2024 Mupirocin 2 % ointment Active 1 APPLIC TOPICAL Twice daily 20 01July 30, 2024 12:00am nitroglycerin 0.4 mg sublingual tablet (20 sources) Nitrate Vasodilator Start: 06-18-2023 Nitroglycerin (Nitrostat) 0.4 mg tablet, sublingual Active 0.4 MG SUBLINGUAL Every 5 minutes x 3 doses as needed for chest pain June 18, 2023 12:00am nitroglycerin (N itrostat) 0.[address] 1 TABLET UNDER TONGUE EVERY 5 MINS, UP TO 3 DOSES NEEDED FOR CHEST PAIN Active nitroglycerin fenton blingual (NITROSTAT) 0.4 mg SL tablet Dissolve [...] (20 sources) Proton Pump Inhibitor Start: 12-09-19 End: 05-28-19 take 1 tablet by mouth once daily at breakfast Pantoprazole 40 mg tablet,delayed release (DR/EC) Discontinued 0 .ROUTE .COMPLEX December 09, 2023 8:47pm May 28, 2024 12:22pm TAKE 1 TABLET BY MOUTH DAILY ON AN EMPTY STOMACH FOLLOWED BY BREAKFAST 30 MINUTES AFTER FOR 90 DAYS Start: 07-10-2021 End: 12-09-2023 take 1 tablet by mouth once daily Pantoprazole [address] Tab 40 mg = 1 tab(s), Oral, Daily, Refills(s) 0 Start Date: 09/07/21 Status: Ordered Repeat number: 1 12 hr ranolazine 500 mg extended release oral tablet (8 sources) Anti-anginal Start: 02-24-2024 take 1 tablet by mouth twice daily ranolazine 500 mg oral ER Tab 500 mg = 1 tab(s), Oral, BID Start Date: 08/03/24 Status: Ordered Repeat number: 1 rosuvastatin calcium 40 mg oral tablet (20 sources) HMG-CoA Reductase Inhibitor Start: 06-18-2023 take 1 tablet by mouth once daily rosuvastatin 40 mg Tab 40 mg = 1 tab(s), Oral, Daily Start Date: 08/03/24 Status: Ordered Repeat number: 1 take 1 tablet by bhavik th every twenty-four hours Rosuvastatin Calcium 40 MG 1 tablet Oral ly Once a day Active Ozempic (19 sources) Start: 09-29-2021 Ozempic qWeek, Refill(s) 0 Start Date: 09/29/21 Status: Ordered Start: 07-10-2021 End: 06-18-2023 Semaglutide (Ozempic) 0.25 m g or 0.5 mg(2 mg/1.5 mL) Pen Injector Discontinued 0.5 MG SUBCUT every week July 10, 2021 12:00am June 18, 2023 11:03am Saturday spironolactone 25 mg oral tablet (12 sources) Aldosterone Antagonist Start: 10-17-2023 take 1 tablet by mouth once daily spironolactone 25 mg Tab 25 mg = 1 tab(s), Oral, Daily Start Date: 08/03/24 Status: Ordered Repeat number: 1 thiamine 100 mg oral tablet (20 sources) Start: 08-12-2023 take 1 tablet by mouth every other day Thiamine Hcl (Vitamin B1) 100 mg tablet Active 100 MG PO every other day August 12, 2023 8:45am Start: 07-02-2023 End: [...] mg / clavulanate 125 mg oral tablet (15 sources) Penicillin-class Antibacterial Start: 06-24-2020 End: 07-11-2020 [...] 0.5 MG PO Daily as needed June 18, 2023 12:00am August 12, 2023 8:42am carvedilol 25 mg oral tablet (20 sources) [...] Refills(s) 0 Start Date: 09/07/21 Status: Ordered Repeat number: 1 Start: 06-22-2020 End: 01-17-2022 Carvedilol 25 mg Tablet Discontinued 12.5 MG PO Twice daily June 22, 2020 12:00am January 17, 2022 2:28pm Start: 06-22-2020 End: 01-17-2022 take 12.5 mg [...] mg by mouth twice daily with meals. ciprofloxacin 500 mg oral tablet (2 sources) Quinolone Antimicrobial Start: 08-04-19 take 1 tablet by mouth once daily Cipro 500 mg Tab 500 mg = 1 tab(s), Oral, Daily, take one tab day before procedure and one tab after procedure, # 2 tab(s), Refills(s) 0, Pharmacy: [facility] [id number], 169, cm, 08/03/24 13:56:00 EDT, Height/Length Dosing, 85.8, kg, 08/03/24 13:56:00 EDT, Weight Dosing Start Date: 08/03/24 Status: Ordered Quantity: 2.0 Unit: tab(s) Repeat number: 1 dapagliflozin 10 mg oral tablet (20 sources) Sodium-Glucose Cotransporter 2 Inhibitor Start: 06-18-19 [...] capsule Discontinued 100 MG PO Daily June 18, 2023 12:00am August 12, 2023 8:42am take 1 capsule by mo [facility] every twenty-four hours Colace 100 MG 1 capsule as needed Orally Once a day Active Colace Active ergocalciferol, vitamin D2, (VITAMIN D2 ORAL) (1 source) ergocalciferol, vitamin D2, (VITAMIN D2 ORAL) Take by mouth. 0 Active Comment on above: Take by mouth. famotidine 40 mg oral tablet (20 sources) Histamine-2 Receptor Antagonist Start: 01-16-20 End: 01-16-20 take 1 tablet by mouth twice daily Famotidine 40 mg Tablet Discontinued 40 MG PO Twice daily January 15, 2022 12:00am January 15, 2022 7:52pm Start: 09-07-2021 take 1 tablet by bhavik th twice daily famotidine 20 mg Tab 20 mg = 1 tab(s), Oral, BID, Refills(s) 0 Start Date: 09/07/21 Status: Ordered Repeat number: 1 Start: 06-22-2020 End: 07-10-2021 take 1 tablet by mouth twice daily Famotidine 40 mg Tablet Discontinued 40 MG PO Twice daily June 22, [...] Insulin) 100 unit/mL (3 mL) Insulin Pen (15 sources) Start: End: inject 5 [IU] by [...] a day. Active inject 10 [IU] by fenton bcutaneous injection twice daily Levemir FlexPen 100 UNIT/ML 10 units Subcutaneous bid (titrate up to 40 units/day) Active Levemir FlexPen 100 UNIT/ML 12 units Subcutaneous bid (titrate up to 40 units/day) Active Levemir Flexpen 100 UNIT/ML 13 units Subcutaneous bid Active Insulin Detemir U-100 (Levemir Flexpen) 100 unit/mL (3 mL) insulin pen (20 sources) Start: 01-07-2024 End: 04-30-2024 inject 5 [IU] by subcutaneous injection twice daily Insulin Detemir U-100 (Levemir Flexpen) 100 unit/mL (3 mL) insulin pen Discontinued 5 UNIT SUBCUT Twice daily January 07, 2024 9:19am April 30, 2024 10:44am Start: 01-07-2024 End: 04-30-2024 inject 5 [IU] [...] insulin, regular, human 100 unt/ml injectable solution (20 sources) Insulin Start: 07-11-2020 End: 01-15-2022 Insulin Regular Human (Novolin R Regular U100 Insulin) 100 unit/mL Solution Discontinued 1 UNIT SUBCUT As Directed July 11, 2020 12:00am January 15, 2022 3:42pm sliding scale insulin regular (HumuLIN R,NovoLIN R) [...] AC,HS expect 80 units a day Not-Taking loratadine 10 mg oral tablet (20 sources) Start: 01-15-2022 End: 05-28-2024 take 1 tablet by mouth once daily Loratadine 10 mg Tablet Discontinued 10 MG PO Daily January 15, 2022 12:00am May 28, 2024 12:19pm loratadine 10 mg cap Take by mouth. 0 Active Comment on above: Take by mouth. multivit-minerals/foli c acid (ONE-A-DAY MEN VITACRAVES ORAL) (1 source) multivit-mineral s/foli c acid (ONE-A-DAY MEN VITACRAVES ORAL) Take by mouth. 0 Active Comment on above: Take by mouth. Multivitamin Tablet (6 sources) Start: 01-15-2022 End: 08-03-2024 take 1 tablet by mouth once daily Multivitamin Tablet Discontinued 1 TAB PO Daily January 15, 2022 12:00am August 03, 2024 9:41am Start: 01-15-2022 take 1 tablet by bhavik th once daily Multivitamin Tablet Active 1 TAB PO Daily January 15, 2022 12:00am Start: 01-15-2022 take 1 tablet by bhavik th once daily Multivitamin Tablet Active 1 TAB PO Daily January 14, 2022 11:00pm pioglitazone 15 mg oral tablet (1 source) Peroxisome Proliferator Receptor alpha Agonist, Peroxisome Proliferator Receptor gamma Agonist, Thiazolidinedione Start: 07-19-2018 pioglitazone (ACTOS) 15 mg tablet potassium chloride 10 meq oral tablet (20 sources) take 1 tablet by mouth once daily at mealtime Potassium Chloride 10 MEQ 1 tablet with food Orally Once a day Not-Taking/PRN predniSONE 20 mg oral tablet (15 sources) Start: 06-24-2020 End: 07-11-2020 take 2 tablets by mouth once daily Prednisone 20 mg tablet Discontinued 40 MG PO Daily 20 June 24, 2020 12:00am July 11, 2020 5:52pm Start: 06-24-2020 End: 07-11-2020 take 40 mg by mouth once daily Prednisone Discontinued 40 MG PO Daily 20 June 24, 2020 12:00am July 11, 2020 5:52pm sacubitril 24 mg / valsartan 26 mg oral tablet (20 sources) Angiotensin 2 Receptor Jason Start: 06-18-2023 End: 06-18-2023 take 1 tablet by mouth twice daily Sacubitril-Valsartan (Entresto) 24-26 mg tablet Discontinued 1 TAB PO Twice daily June 18, 2023 12:00am June 18, 2023 11:59am take 1 tablet by bhavik th every twelve hours Entresto 24-26 MG 1 tablet Orally Twice a day Not-Taking/PRN Semaglutide (13 sources) Start: 06-18-2023 End: 06-18-2023 inject 1 mg by subcutaneous injection every week Semaglutide 1 mg/dose (4 mg/3 mL) pen injector Discontinued 1 MG SUBCUT every week June 18, 2023 12:00am June 18, 2023 11:15am Start: 06-18-2023 End: 06-18-2023 inject 1 mg [...] 2023 11:15am ticagrelor 90 mg oral tablet (15 sources) Start: 07-13-2020 End: 07-10-2021 take 1 tablet by mouth twice daily Ticagrelor (Brilinta) 90 mg Tablet Discontinued 90 MG PO Twice daily 180 90 July 13, 2020 12:00am July 10, 2021 9:59am triamcinolone acetonide 0.82269 mg/mg topical ointment (1 source) Corticosteroid triamcinolone [...] Problem Date Documented Date Episodic/Chronic Abdominal pain (13 sources) Right lower quadrant pain; Translations: [Right lower quadrant pain] Onset: 2 Episodic Acute myocardial infarction (20 sources) Myocardial infarction; Translations: [Non-ST elevation (NSTEMI) myocardial infarction] Onset: 2 07-12-2020 Chronic Comment on above: 12/2022, 9 total in lifetime Administrative/social admission (20 sources) Financial problem; Translations: [Other problems related to housing and economic circumstances] Onset: 1 Resolved: 2 Episodic Anxiety disorders (13 sources) Generalized anxiety disorder; Translations: [Generalized anxiety disorder] 08-06-2023 Chronic Biliary tract disease (7 sources) Calculus of gallbladder without cholecystitis without obstruction; Translations: [Biliary calculus] Onset: 2 Episodic Cataract (6 sources) Bilateral age-related nuclear cataracts; [...] artery disease; Translations: [Atherosclerotic heart disease of [place] coronary artery without angina pectoris] Onset: 3 [...] (primary) hypertension] Onset: 1 Resolved: 2 Chronic Fluid and electrolyte disorders (7 sources) Dehydration; Translations: [Hyperkalemia] Onset: 2 07-14-2024 Episodic Genitourinary symptoms and ill-defined conditions (20 sources) Lower urinary tract obstructive syndrome; Translations: [Obstructive and reflux uropathy, unspecified] 07-14-2024 Episodic Hyperplasia of prostate (3 sources) Nocturia due to benign prostatic hypertrophy 09-07-2021 Chronic Hypertension with complications and secondary hypertension (20 sources) Chronic kidney disease due to hypertension; Translations: [Hypertensive chronic kidney disease with stage 1 through stage 4 chronic kidney disease, or unspecified chronic kidney disease] Onset: 1 Resolved: 2 Chronic Mycoses (4 sources) Pain in toe; Translations: [Tinea unguium] 01-23-2024 Episodic Nausea and vomiting (9 sources) Nausea; Translations: [Nausea] Onset: 2 Episodic Neoplasms of unspecified nature or uncertain behavior (5 sources) Monoclonal gammopathy of uncertain significance; Translations: [Monoclonal gammopathy (clinical)] Onset: 9 09-07-2021 Chronic Neoplasms of unspecified nature or uncertain behavior (2 sources) Neoplasm of unspecified behavior of bladder; Translations: [Neoplasm of unspecified behavior of bladder] Onset: 5 Episodic Nonspecific chest pain (18 sources) Chest pain; Translations: [Chest pain, unspecified] Onset: 2 07-11-2020 Episodic Nutritional deficiencies (20 sources) Vitamin D deficiency; Translations: [Vitamin D deficiency, unspecified] Onset: 1 Resolved: 2 Chronic Osteoarthritis (2 sources) Arthritis 08-03-2024 Chronic Other aftercare (20 sources) Long-term current use of insulin; Translations: [manager intermediate (current) use of insulin] Episodic Other aftercare (11 sources) snf (current) use of insulin; Translations: [manager intermediate current use of insulin Z79.4] Onset: 1 Resolved: 2 Episodic Other circulatory disease (3 sources) Stenosis of abdominal aorta 09-07-2021 Chronic Other connective tissue disease (20 sources) Disorder of rotator cuff; Translations: [Unspecified rotator cuff tear or rupture of right shoulder, not specified as traumatic] Episodic Other connective tissue disease (20 sources) Impingement syndrome of right shoulder region; Translations: [Impingement syndrome of right shoulder] Episodic Other diseases of bladder and urethra (2 sources) Mass of urinary bladder 08-03-2024 Chronic Other diseases of kidney and ureters (20 sources) Secondary hyperparathyroidism; Translations: [Secondary hyperparathyroidism of renal origin] 06-30-2023 Chronic Other diseases of kidney and ureters (13 sources) Secondary hyperparathyroidism of renal origin; Translations: [Secondary hyperparathyroidism (of renal origin)] Chronic Other gastrointestinal disorders (3 sources) Irritable bowel syndrome 09-07-2021 Chronic Other gastrointestinal disorders (16 sources) Constipation; Translations: [Constipation, unspecified] Episodic Other hematologic conditions (1 source) Raised cardiac enzyme or marker; Translations: [Other specified abnormalities of plasma proteins] 07-11-2020 Episodic Other lower respiratory disease (15 sources) Hypoxia; Translations: [Hypoxemia] 06-22-2020 Episodic Other lower respiratory disease (20 sources) Other nonspecific abnormal finding of lung field; Translations: [Ground glass opacity present on imaging of lung] Onset: 2 Episodic Other lower respiratory disease (17 sources) Solitary pulmonary nodule; Translations: [Solitary pulmonary nodule] Onset: 2 Episodic Other lower respiratory disease (20 sources) Nodule of lung; Translations: [Solitary pulmonary nodule] 07-22-2023 Episodic Comment on above: CT: 8mm RML nodule - 3CT: 6mm RML nodule - 3CT: 7mm RML nodule - 3CT: 6.5mm RML nodule - 07/2023 Other non-traumatic [...] metabolic disorders (3 sources) Body mass index 25-29 - overweight 09-29-2021 Episodic Other nutritional; endocrine; and metabolic disorders (5 sources) Body mass index (BMI) 27.0-27.9, adult; Translations: [Body Mass Index 27.0-27.9, adult] Onset: 2 Resolved: 2 Episodic Other nutritional; endocrine; and metabolic disorders (3 sources) Body mass index (BMI) 26.0-26.9, adult; Translations: [Body Mass Index 26.0-26.9, adult] Episodic Other nutritional; endocrine; and metabolic disorders (19 sources) Overweight in adulthood with body mass index of 25 or more but less than 30; Translations: [Body mass index (BMI) 26.0-26.9, adult] 06-18-2023 Episodic Other nutritional; endocrine; and metabolic disorders (8 sources) Body mass index (BMI) 28.0-28.9, adult; Translations: [Body Mass Index 28.0-28.9, adult] 10-17-2023 Episodic Other skin disorders (2 sources) Asteatosis cutis; Translations: [Xerosis cutis] 01-23-2024 Episodic Jolene-; endo-; and myocarditis; cardiomyopathy (except that caused by tuberculosis or sexually transmitted disease) (2 sources) Other cardiomyopathies; Translations: [Other cardiomyopathies] Onset: 4 Chronic Peripheral and visceral atherosclerosis (3 sources) Intermittent claudication of bilateral lower limbs co-occurrent and due to atherosclerosis 09-07-2021 Chronic Screening and history of mental health and substance abuse codes (3 sources) Personal history of nicotine dependence; Translations: [Ex-smoker] Onset: 3 08-03-2024 Episodic Spondylosis; intervertebral disc disorders; other back problems (3 sources) Lumbar spondylosis 09-07-2021 Chronic Unclassified (1 source) CHRN KIDNEY DISEASE STG 3 UNSP; Translations: [CHRN KIDNEY DISEASE STG 3 UNSP] Onset: 3 Unclassified (1 source) CONTACT W/AND (SUSP) EXPOS COVID-19; Translations: [CONTACT W/AND (SUSP) EXPOS COVID-19] Onset: 2 Unclassified (8 sources) Chronic renal impairment, stage 3b; Translations: [Chronic renal impairment, stage 3b] Unclassified (2 sources) Drug therapy finding 08-03-2024 Unclassified (2 sources) Patient encounter status 08-03-2024 Past or Other Problems Problem Classification Problem Date Documented Da te Episodic/Chronic Cardiac dysrhythmias (2 sources) Bradycardia, unspecified; Translations: [...] unspecified; Translations: [FEVER UNSPECIFIED] Onset: 10-31-2021 Episodic Inflammation; infection of eye (except that caused by tuberculosis or sexually transmitteddisease) (6 sources) Blepharitis of upper and lower eyelids of bilateral eyes; Translations: [Unspecified blepharitis right eye, upper and lower eyelids] Onset: 10-12-2022 10-12-2022 Episodic Other aftercare (1 source) manager intermediate (current) use of aspirin; Translations: [NURSE AIDE CURRENT USE OF ASPIRIN] Onset: 04-03-2022 Episodic Other aftercare (1 source) Other ad terminal makeup operator (current) drug therapy; Translations: [[facility] CURRENT DRUG THERAPY] Onset: 04-03-2022 Episodic Other [...] [OTHER PNEUMONIA UNS ORGANISM] Onset: 12-08-2021 Episodic Unclassified (20 sources) Long-term current use of insulin; Translations: [Insulin long-term use] Unclassified (2 sources) Chronic renal impairment, stage 3b N18.32 Results Test Name Value Interpretation Reference Range Facility Main OR Preoperative Recordo n 08-11-2024 Main OR Preoperative Record Main OR Preoperative Record Holding Area Document Type FTURO Summary Primary Physician: Jason LARKIN MD Finalized Date/Time: 08/11/24 16:19:02 Pt. Name: LANI LIZAMA/Sex: 1950 Male Med Rec #: [id number] Physician: Jason LARKIN MD Financial #: [id number] Pt. Type: O Room/Bed: / Admit/Disch: 08/04/24 09:15:12 - 05/06/25 23:59:59 Institution: Case Times Holding FTURO Pre-Care Text: Verifies consent for planned procedure, identifies individual values and wishes concerning care, includes family members in perioperative teaching Secures patient's records' belongings, and valuables, maintains patient's dignity and privacy, and maintains patient confidentiality Entry 1 In Holding 08/04/24 09:24:00 Outcomes Met? Yes Last Modified By: Maribell POSADA, Rose Raonicnakul Olvera 08/04/24 09:24:04 Post-Care Text: The patient participates in decisions affecting his or her perioperative plan of care The patient's right to privacy is maintained Surgery Checklist FTURO Entry 1 Patient Birthday, ID Band Procedure History and Physical, Identification: Check, Patient Verification: Surgical Consent, With Participation Patient NPO after Midnight: n/a Date/Time: 08/04/24 09:24:00 Personal Items: Defibrilator, Pacemaker Complaints of Pain: No Skin Integrity Unable to Visualize Vitals - EU Blood Pressure 162/88 Pulse 83 bpm Respirations 18 br/min SPO2 98 % Additional None RN Reviewed Yes Specimens Collected Last Modified By: SUNITA Agrawal RN, Ruthann 08/11/24 16:19:00 General Comments: CHART OPENED TO COMPLETE AND FINALIZE MATT POSADA Finalized By: SUNITA Agrawal RN, Ruthann Document Signatures Signed By: SUNITA Agrawal RN, Ruthann 08/11/24 16:19 Normal [facility] Urine Cytology ([facility])on 08-07-2024 Microscopic exam Cytology (U) [Interp] Diagnosis Info Invalid Interpretation Code [facility] Comment on above: Result Comment: A:Ur ine,Urine:Voided Interpretation - Adequate cellularity for evaluation. CPT 66689 MicroScopic Description - Adequacy - Gross Description Site ID:A color Red fixative Alcohol Specimen designated Urine received in alcohol preservative and labeled with the patient???s name, consists of 60ml cloudy red fluid. Electronically signed by : on: 08/07/2024 13:02:18 Performed By: #### 1 [id number] #### [facility] [address] [place] [address] Main OR Intraoperative Recor don 08-04-2024 Main OR Intraoperative Record Main OR Intraoperative Record IntraOp Document Type FTURO Summary Primary Physician: Jason LARKIN MD Finalized Date/Time: 08/04/24 10:03:52 Pt. Name: LANI LIZAMA Nakul العراقي/Sex: 1950 Male Med Rec #: [id number] Physician: Jason LARKIN MD Financial #: [id number] Pt. Type: O Room/Bed: / Admit/Disch: 08/04/24 09:15:12 - Institution: Case Times FTURO Entry 1 Patient Times In Room 08/04/24 09:45:00 Out Room 08/04/24 10:10:00 Procedure Times Start 08/04/24 09:53:00 Stop 08/04/24 10:05:00 Anesthesia Times Last Modified By: Tanja POSADA, DEEPALIOR, Yanet 08/04/24 10:03:16 Case Attendance FTURO Entry 1 Entry 2 Entry 3 Case Attendee Jason LARKIN MD RN, DEEPALIOR, Halley WRIGHT, Hortencia Holt Role Performed Surgeon - Primary Benefits Officer - Primary Scrub - Primary Time In 08/04/24 09:45:00 08/04/24 09:45:00 08/04/24 09:45:00 Time Out 08/04/24 10:10:00 08/04/24 10:10:00 08/04/24 10:10:00 Procedure CYSTOSCOPY LOCAL(.) CYSTOSCOPY LOCAL(.) CYSTOSCOPY LOCAL(.) Comments Last Modified By: Tanja RN, CNOR, Tanja RN, DEEPALIOR, Tanja POSADA, DEEPALIOR, Yanet 08/04/24 Yanet 08/04/24 Yanet 08/04/24 10:03:18 10:03:36 10:03:36 Surgical Procedures FTURO Entry 1 Procedure Description Procedure CYSTOSCOPY LOCAL Modifiers . Surgeon Description CYSTO, irrigation of bladder Primary Procedure Yes Primary Surgeon Jason LARKIN MD Start 08/04/24 09:53:00 Stop 08/04/24 10:05:00 Anesthesia Type Local Surgical Service Urology Wound Class 2 - Clean-Contaminated Last Modified By: Tanja POSADA, DEEPALIOR, Yanet 08/04/24 10:03:21 General Case Data FTURO Pre-Care Text: Classifies surgical wound, implements aseptic technique, initiates traffic control Entry 1 Case Information OR URO 1 FT Case Level None Wound Class 2 - Clean-Contaminated Specialty Urology Preop Diagnosis BLADDER MASS, GROSS Postop Same As Preop No HEMATURIA Postop Diagnosis BLADDER MASS floor of Outcomes Met? Yes bladder GROSS HEMATURIA Last Modified By: SUNITA Agrawal RN, Ruthann 08/04/24 10:01:19 Post-Care Text: The patient is free from signs and symptoms of infection EU IntraOp - FTURO Pre-Care Text: Implements protective measures prior to operative or invasive procedure, confirms identity before the operative or invasive procedure, verifies operative procedure, surgical site, and laterality Entry 1 EU Perioperative Protocols Procedure(s) CYSTOSCOPY LOCAL(.) Patient Identity Birthday, ID Band Verified (select at Check, Patient least 2): Participation Consents / H and P H&P, Surgery/Procedure Operative Site N/A Verified Consent Marking Verified Surgical Site Yes Laterality Verified n/a Verified Procedure Verified Yes Correct Patient Yes Position Verified Availability Equipment, Medication Time Out CHAYA LEMUS, Jason Sanchez, Verified (If Participants Tanja POSADA, DEEPALIOR, Applicable) Halley Holt CST, Hortencia Mota Time Out Complete 08/04/24 09:50:00 Allergies Reviewed? Yes Allergies Reviewed Self/Patient With Body Position Supine Prep Area penis Prep Agents Betadine Solution Skin. Condition Unable to Visualize Additional None Specimens Collected Vitals - EU Blood Pressure 167/88 Pulse 83 bpm Respirations 18 br/min SPO2 EBL 0 I&O - EU Total Intake 0 mL Total Output 0 mL Outcomes Met? Yes Last Modified By: SUNITA Agrawal RN, Ruthann 08/04/24 09:58:46 Post-Care Text: The patient is free from signs and symptoms of injury caused by extraneous objects Sign Out FTURO Entry 1 Before Patient Leaves OR Nurse verbally Yes Nurse verbally n/a confirms with the confirms with the team the name of team that the procedure(s) instrument, sponge, recorded and needle counts are correct (or N/A) Nurse verbally n/a Nurse verbally n/a confirms with the confirms with the team how the team whether there specimen is labeled are any equipment (including patient problems to be name), if applicable addressed Sign Out Complete 08/04/24 10:07:00 Last Modified By: SUNITA Agrawal RN, Ruthann 08/04/24 10:03:50 Case Comments Finalized By: SUNITA Agrawal RN, Ruthann Document Signatures Signed By: SUNITA Agrawal RN, Ruthann 08/04/24 10:03 Normal [facility] Operative Reporton Operative Report Operative Report Patient: LANI LIZAMA Age: 73 years Sex: Male : 1950 Associated Diagnoses: None Author: Jason LARKIN MD Procedure Operative Information Details: Date/ Time: 08/04/2024 10:09:00. Pre-Op Dx: Bladder Mass - D41.4, Gross Hematuria - R31.0. Post-Op Dx: Same. Anesthesia Type: Local. Procedure: Local Cystoscopy. Complications: None. Risks/Benefits/Informed Consent: Surgical risks, benefits, details of the procedure have been explained to the patient, Full informed consent has been obtained. Intraoperative Information Prepped: Patient is brought back to the endoscopy suite, Patient is placed in supine position, Patient prepped in the usual fashion with Betadine solution, 2% Xylocaine Jelly is placed per Urethra, After waiting several minutes the Cystoscope is introduced. The Urethra is: Normal. The Prostatic Urethra is: Moderate Hypertrophy. 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 An adjacent satellite tumor 1/2 cm is noted. Ureteral orifice is not visualized. Poor visibility due to blood in the urine.). The ureteral orifices: Show efflux of clear urine. Devices Implanted: None. Removal: Cystoscope is removed, The patient tolerated it well. Postoperative Information Discharge: Patient is discharged home with antibiotic coverage, Follow up arranged. He will get evaluated by cardiology for anesthetic risk. He then will require a TURBT potentially at a tertiary center.. Normal [facility] Comment on above: Result Comment: Elec tronically Signed By: Jason LARKIN MD\.br\Date and Time Signed: 08/04/24 10:12 EDT Urine Cytology ([facility])on 0 08-03-2024 UC Method of Extraction Voided Normal [facility] Comment on above: Performed By: #### 1 [id number] #### [facility] Laboratory [address] [facility] [place] [address] Number of Jars 1 Invalid Interpretation Code [facility] Comment on above: Performed By: #### 1 [id number] #### [facility] [address] [facility] [place] [address] Specimen Urine Normal [facility] Comment on above: Performed By: #### 1 [id number] #### [facility] [address] [facility] [place] [address] Type of Service Technical Only Normal [facility] Comment on above: Performed By: #### 1 [id number] #### [facility] [address] [facility] [place] [address] Urology Office/Clinic Noteon 08-03-2024 Urology Office/Clinic Note Urology Office/Clinic Note Chief Complaint New patient bladder mass and gross hematuria HPI Staff 73 year old male new patient referred for bladder mass and gross hematuria x 1 month, urine has been getting darker. IPSS: 6 Denies dysuria, has gross hematuria. Denies abdominal pain/flank pain History of Present Illness Tests reviewed: reviewed UA, referral records, CT scan, labs I have reviewed the previous health record information and history for this patient from external providers. I have reviewed and verified the staff HPI to be accurate for this encounter. Review of Systems PHQ Score Initial Depression Screen Score: 0 SCORE ROS - Provider Constitutional: denies weight loss, denies hot flashes. Eyes: denies eye problems. Gastrointestinal: denies nausea, denies vomiting. Cardiovascular: denies chest pain or angina. Integumentary: no dryness Musculoskeletal: denies musculoskeletal symptoms. ENMT: denies otolaryngeal symptoms. Respiratory: no shortness of breath. Heme/Lymph: denies easy bleeding tendency, denies easy bruising tendency. Psychiatric: no confusion, no anxiety. Genitourinary: See HPI. Physical Exam Vitals & Measurements T: 36.2 ???C(Temporal Artery) HR: 73(Peripheral) RR: 16 BP: 145/50 HT: 169 cm HT: 67 in WT: 85.8 kg WT: 189.156 lb BMI: 30.04 General Appearance: alert, no distress, well nourished, well developed male. Assessment/Plan Mega is a 73 yo male new pt referred by Dr. Rigo Crespo for gross hematuria. IPSS 6. Not taking any BPH meds. 1. Gross hematuria (R31.0: Gross hematuria) CT AP wo con 07/30/24 [facility] - Bladder mass noted involving posterior wall measuring 1.9 x 1.9 x 1.9 cm. Prostate gland is normal in size. UA today shows large blood and large leuks. Has had ongoing gross hematuria, appearing darker in color more recently. Reviewed imaging results. Advised pt he has a possible bladder mass which could be contributing to gross hematuria. Discussed other possible etiologies of hematuria. Discussed hematuria workup includes upper urinary tract imaging (already had this), evaluation of the urinary cells with urine cytology and possible a FISH test, and a cystoscopy to rule out lower urinary tract pathology. Pt aware that a distinct etiology of the hematuria may not be clear upon conclusion of the workup. The rationale for this workup has been discussed, and all questions have been answered. -Urine sample to be sent for cytology -Will schedule cystoscopy. The risks and benefits for cystoscopy have been discussed. The risks include bleeding, infection, and irritation of the bladder and urinary channel, among others. The patient, after being informed of procedural details and after questions have been answered, wishes to proceed. Full informed consent has been obtained. Will order Local anesthesia. 2. Bladder mass (N32.89: Other specified disorders of bladder) See #1. 3. Screening PSA (prostate specific antigen) (Z12.5: Encounter for screening for malignant neoplasm of prostate) PSA 08/27/23 - 1.37. -Cont PSA monitoring w/ PCP 4. Former smoker (Z87.891: Personal history of nicotine dependence) x32 yrs. Risk factor for urothelial ca. 5. Anticoagulated (Z79.01: snf (current) use of anticoagulants) On Plavix. Hx of CABG x5 1995 at . , PCI/stent x8 at [facility]. Elevated risk for periop complications. Follow-up With When Contact Information CHAYA LEMUS, Jason Sanchez, [facility] [address] , [place] [address]- [phone] Additional Instructions: sched cysto Patient Education Cystoscopy I, Tiffany Patten, personally scribed for Dr. Larkin on 08/03/2024 14:23:23. . Documentation recorded by the scribe, Tiffany Patten, accurately reflects the services(s) I performed and decisions made by me. Authenticated by Dr. Larkin on 08/03/2024 14:25:00. Problem List/Past Medical History Ongoing Abdominal pain, RLQ Anticoagulated Arthritis ASHD (arteriosclerotic heart disease) Atheroscler of [place] artery of both legs with intermit claudication Bladder mass BMI 28.0-28.9,adult BPH associated with nocturia Cholelithiasis Chronic heart failure with reduced ejection fraction (HFrEF, <= 40%) Chronic kidney disease Controlled diabetes mellitus with diabetic polyneuropathy, with long-term current use of insulin Diabetes Diabetic retinopathy Elevated serum immunoglobulin free light chains Former smoker CHRYSTAL (generalized anxiety disorder) GERD (gastroesophageal reflux disease) Gross hematuria Heart attack High cholesterol Hypertension IBS (irritable bowel syndrome) Ischemic cardiomyopathy Lumbar spondylosis MGUS (monoclonal gammopathy of unknown significance) Mixed hyperlipidemia Myocardial infarct Nausea Obesity Pacemaker Screening PSA (prostate specific antigen) Stage 3 chronic kidney disease Stage 3b chronic kidney disease (CKD) Stenosis of infrarenal abdominal aort (more content not included)... Normal [facility] Comment on above: Result Comment: Elec tronically Signed By: Jason LARKIN MD\.br\Date and Time Signed: 08/03/24 14:25 EDT\.br\Electronically Co-Signed By: Tiffany Patten.br\Date and Time Co-Signed: 08/03/24 14:24 EDT Basophils Auto (Bld) [#/Vol] on 07-15-2024 Basophils (Bld) [#/Vol] Automated basophil count 0.0-0.1 [facility] Basophils/100 WBC Auto (Bld) on 07-15-2024 Basophils/100 WBC (Bld) Automated basophil % 0.2-2.0 [facility] Eosinophils/100 WBC Auto (Bl d)on 07-15-2024 Eosinophils/100 WBC (Bld) Automated eosinophil % 0.9-7.0 [facility] Erythrocyte distribution wid th Auto (RBC) [Ratio]on 07-15-2024 Erythrocyte distribution width (RBC) [Ratio] Erythrocyte distribution width [Ratio] by Automated count 11.0-15.0 [facility] Estimated glomerular filtrat ion rate (GFR) non- Americanon 07-15-2024 GFR/1.73 sq M.predicted among non-blacks MDRD (S/P/Bld) [Vol rate/Area] Estimated glomerular filtration rate (GFR) non- Low >=60 mL/min/1.7 3m 2 [facility] Globulin Calc (S) [Mass/Vol] on 07-15-2024 Globulin (S) [Mass/Vol] Serum globulin measurement by calculation (mass/volume) [facility] Hematocrit Auto (Bld) [Volum e fraction]on 07-15-2024 Hematocrit (Bld) [Volume fraction] Hematocrit [Volume Fraction] of Blood by Automated count 42.0-54.0 [facility] Hemoglobin [Mass/volume] in Bloodon 07-15-2024 Hemoglobin (Bld) [Mass/Vol] Hemoglobin [Mass/volume] in Blood 14.0-18.0 [facility] Laboratory - Chemistry and C hemistry - challengeon 07-15-2024 Albumin [Mass/Vol] 3.8 g/dL 3.4-5.0 [facility] ALP [Catalytic activity/Vol] 128 U/L High 46-116 [facility] ALT [Catalytic activity/Vol] 30 U/L 16-63 [facility] AST [Catalytic activity/Vol] 22 U/L 15-37 [facility] Bilirubin [Mass/Vol] 0.6 mg/dL 0.2-1.0 [facility] Calcium [Mass/Vol] 8.9 mg/dL 8.5-10.1 [facility] Chloride [Moles/Vol] 104 mmol/L 98-107 [facility] CO2 [Moles/Vol] 28.1 mmol/L 21.0-32.0 [facility] Creatinine [Mass/Vol] 1.74 mg/dL High 0.70-1.30 [facility] GFR/1.73 sq M.predicted MDRD (S/P/Bld) [Vol rate/Area] 47 mL/min/{1.73_m2} Low >=60 mL/min/1.7 3m 2 [facility] Glucose [Mass/Vol] 142 mg/dL High 74-106 [facility] Potassium [Moles/Vol] 4.1 mmol/L 3.5-5.1 [facility] Protein [Mass/Vol] 7.5 g/dL 6.4-8.2 [facility] Sodium [Moles/Vol] 140 mmol/L 136-145 [facility] Urea nitrogen [Mass/Vol] 19.0 mg/dL High 7.0-18.0 [facility] Urea nitrogen/Creatinine [Mass ratio] 10.9 mg/mg [facility] - Hematology and Cell countson 07-15-2024 Immature granulocytes/100 WBC (Bld) 0.6 % High 0.0-0.5 [facility] Leukocytes [#/volume] correc soraya for nucleated erythrocytes in Blood by Automated counon 07-15-2024 WBC corrected for nucl RBC Auto (Bld) [#/Vol] Leukocytes [#/volume] corrected for nucleated erythrocytes in Blood by Automated coun 4.0-11.0 [facility] Lymphocytes Auto (Bld) [#/Vo l]on 07-15-2024 Lymphocytes (Bld) [#/Vol] Lymphocytes [#/volume] in Blood by Automated count 1.2-3.8 [facility] Lymphocytes/100 WBC Auto (Bl d)on 07-15-2024 Lymphocytes/100 WBC (Bld) Lymphocytes/100 leukocytes in Blood by Automated count 20.5-60.0 [facility] MCH Auto (RBC) [Entitic mass ]on 07-15-2024 MCH (RBC) [Entitic mass] MCH [Entitic mass] by Automated count 25.9-34.0 [facility] MCHC Auto (RBC) [Mass/Vol]on 07-15-2024 MCHC (RBC) [Mass/Vol] MCHC [Mass/volume] by Automated count 29.9-35.2 [facility] MCV Auto (RBC) [Entitic vol] on 07-15-2024 MCV (RBC) [Entitic vol] MCV [Entitic volume] by Automated count 80.0-94.0 [facility] Monocytes Auto (Bld) [#/Vol] on 07-15-2024 Monocytes (Bld) [#/Vol] Automated blood monocyte count 0.3-0.8 [facility] Monocytes/100 WBC Auto (Bld) on 07-15-2024 Monocytes/100 WBC (Bld) Automated monocyte % 1.7-12.0 [facility] Neutrophils Auto (Bld) [#/Vo l]on 07-15-2024 Neutrophils (Bld) [#/Vol] Neutrophils [#/volume] in Blood by Automated count 1.4-6.5 [facility] Neutrophils/100 WBC Auto (Bl d)on 07-15-2024 Neutrophils/100 WBC (Bld) Automated neutrophil % 43.0-75.0 [facility] No Panel Informationon 07-15 Eosinophils # (Auto) 0.3 10 3/uL 0.0-0.7 [facility] Immature Granulocyte # (Auto) 0.05 10 3/uL High 0.00-0.03 [facility] Platelet mean volume Auto (B ld) [Entitic vol]on 07-15-2024 Platelet mean volume (Bld) [Entitic vol] Platelet mean volume [Entitic volume] in Blood by Automated count 9.5-13.5 [facility] Platelets Auto (Bld) [#/Vol] on 07-15-2024 Platelets (Bld) [#/Vol] Platelets [#/volume] in Blood by Automated count 150-450 [facility] RBC Auto (Bld) [#/Vol]on RBC (Bld) [#/Vol] Erythrocytes [#/volu me] in Blood by Automated count 4.70-6.10 [facility] Serum or plasma albumin/glob ulin mass ratioon 07-15-2024 Albumin/Globulin [Mass ratio] Serum or plasma albumin/globulin mass ratio [facility] Serum or plasma anion gap de terminationon 07-15-2024 Anion gap [Moles/Vol] Serum or plasma an ion gap determination [facility] Erythrocyte distribution wid th Auto (RBC) [Ratio]on 07-07-2024 Erythrocyte distribution width (RBC) [Ratio] Erythrocyte distribution width [Ratio] by Automated count High 11.0-15.0 [facility] Estimated glomerular filtrat ion rate (GFR) non- Americanon 07-07-2024 GFR/1.73 sq M.predicted among non-blacks MDRD (S/P/Bld) [Vol rate/Area] Estimated glomerular filtration rate (GFR) non- Low >=60 mL/min/1.7 3m 2 [facility] Hematocrit Auto (Bld) [Volum e fraction]on 07-07-2024 Hematocrit (Bld) [Volume fraction] Hematocrit [Volume Fraction] of Blood by Automated count 42.0-54.0 [facility] Hemoglobin [Mass/volume] in Bloodon 07-07-2024 Hemoglobin (Bld) [Mass/Vol] Hemoglobin [Mass/volume] in Blood 14.0-18.0 [facility] - Chemistry and C hemistry - challengeon 07-07-2024 Albumin [Mass/Vol] 3.9 g/dL 3.4-5.0 [facility] Calcium [Mass/Vol] 9.3 mg/dL 8.5-10.1 [facility] Chloride [Moles/Vol] 105 mmol/L 98-107 [facility] CO2 [Moles/Vol] 28.7 mmol/L 21.0-32.0 [facility] Creatinine [Mass/Vol] 1.87 mg/dL High 0.70-1.30 [facility] GFR/1.73 sq M.predicted MDRD (S/P/Bld) [Vol rate/Area] 43 mL/min/{1.73_m2} Low >=60 mL/min/1.7 3m 2 [facility] Glucose [Mass/Vol] 196 mg/dL High 74-106 [facility] Magnesium [Mass/Vol] 1.9 mg/dL 1.8-2.4 [facility] Potassium [Moles/Vol] 5.5 mmol/L High 3.5-5.1 [facility] Sodium [Moles/Vol] 139 mmol/L 136-145 [facility] Urate [Mass/Vol] 3.5 mg/dL 3.5-7.2 [facility] Urea nitrogen [Mass/Vol] 19.0 mg/dL High 7.0-18.0 [facility] Urea nitrogen/Creatinine [Mass ratio] 10.2 mg/mg [facility] - Urinalysison Protein (U) [Mass/Vol] 124.0 mg/dL High <=11.9 [facility] Leukocytes [#/volume] correc soraya for nucleated erythrocytes in Blood by Automated counon 07-07-2024 WBC corrected for nucl RBC Auto (Bld) [#/Vol] Leukocytes [#/volume] corrected for nucleated erythrocytes in Blood by Automated coun 4.0-11.0 [facility] MCH Auto (RBC) [Entitic mass ]on 07-07-2024 MCH (RBC) [Entitic mass] MCH [Entitic mass] by Automated count 25.9-34.0 [facility] MCHC Auto (RBC) [Mass/Vol]on 07-07-2024 MCHC (RBC) [Mass/Vol] MCHC [Mass/volume] by Automated count 29.9-35.2 [facility] MCV Auto (RBC) [Entitic vol] on 07-07-2024 MCV (RBC) [Entitic vol] MCV [Entitic volume] by Automated count 80.0-94.0 [facility] No Panel Informationon 07-07 25-Hydroxy Vitamin D Total 41.5 ng/mL [facility] Comment on above: <20 ng/mL Vit D defi cient20-<30 ng/mL Vit D [id number] ng/mL Vit D sufficient>100 ng/mL Potential Toxicity Parathyroid Hormone (Intact) 62 pg/mL 15-65 [facility] Comment on above: Performed at: - [address] [id number] Director: Kwaku Park PhD, Phone: [phone] Phosphorus Level 3.7 mg/dL 2.6-4.7 [facility] Urine Random Creatinine 69.77 mg/dL 20.00-300. 00 [facility] Platelet mean volume Auto (B ld) [Entitic vol]on 07-07-2024 Platelet mean volume (Bld) [Entitic vol] Platelet mean volume [Entitic volume] in Blood by Automated count 9.5-13.5 [facility] Platelets Auto (Bld) [#/Vol] on 07-07-2024 Platelets (Bld) [#/Vol] Platelets [#/volume] in Blood by Automated count 150-450 [facility] RBC Auto (Bld) [#/Vol]on RBC (Bld) [#/Vol] Erythrocytes [#/volu me] in Blood by Automated count 4.70-6.10 [facility] Serum or plasma anion gap de terminationon 07-07-2024 Anion gap [Moles/Vol] Serum or plasma an ion gap determination [facility] Urine Cultureon 07-07-2024 Bacteria identified Cx Nom (U) <9,000 colonies/ml mixed bacterial skin contaminants 2 Days PERFORMED BY: [place] [address] PATHOLOGIST SURVEYOR HELPER ANDREA FARRELL M.D. Normal [facility] Comment on above: Performed By: #### C UU #### [address] Urine protein/creatinine rat ioon 07-07-2024 Protein/Creatinine (U) [Ratio] Urine protein/creatinine ratio [facility] - Microbiology an d Antimicrobial susceptibilityon 06-10-2024 SARS-CoV-2 (COVID-19) RNA RAMO+probe Ql (Unsp spec) Positive Abnormal NEGATIVE [facility] Comment on above: This test has not be en FDA cleared or approved, but has beenauthorized by the FDA under an Emergency Use Authorization(EUA) for use by authorized laboratories certified underIA that meet the requirements to perform moderate or highcomplexity testing. This test has been authorized only forthe detection of proteins from SARS-CoV-2, not for any otherviruses or pathogens. The emergency use of this test isauthorized for the duration of the declaration thatcircumstances exist justifying the authorization ofemergency use of in vitro diagnostic tests for detectionand/or diagnosis of Covid-19 under section 564(b)(1) of theAct, 21 U.S.C. 360bbb-3(b)(1), unless the declaration isterminated or authorization is revoked sooner. No Panel Informationon 06-10 Bedside Influenza Type A Antigen Negative [facility] Comment on above: Negative for Flu A p rotein antigen. Infection due to Flu Acannot be ruled out. Flu A antigen in the sample may bebelow the detection limit of the test. Bedside Influenza Type B Antigen Negative [facility] Comment on above: Negative for Flu B p rotein antigen. Infection due to Flu Bcannot be ruled out. Flu B antigen in the sample may bebelow the detection limit of the test. Cholesterol in LDL Calc [Mas s/Vol]on 05-05-2024 Cholesterol in LDL [Mass/Vol] Cholesterol in LDL [Mass/volume] in Serum or Plasma by calculation [facility] Comment on above: <100 mg/dl [id number] 0-129 mg/dl NEAR OR ABOVE [id number] mg/dl BORDERLINE [id number] mg/dl HIGH>190 mg/dl VERY HIGH Cholesterol in VLDL Calc [Ma ss/Vol]on 05-05-2024 Cholesterol in VLDL [Mass/Vol] Cholesterol in VLDL [Mass/volume] in Serum or Plasma by calculation [facility] Estimated glomerular filtrat ion rate (GFR) non- Americanon 05-05-2024 GFR/1.73 sq M.predicted among non-blacks MDRD (S/P/Bld) [Vol rate/Area] Estimated glomerular filtration rate (GFR) non- Low >=60 mL/min/1.7 3m 2 [facility] Globulin Calc (S) [Mass/Vol] on 05-05-2024 Globulin (S) [Mass/Vol] Serum globulin measurement by calculation (mass/volume) [facility] - Chemistry and C hemistry - challengeon 05-05-2024 Albumin [Mass/Vol] 3.7 g/dL 3.4-5.0 [facility] ALP [Catalytic activity/Vol] 162 U/L High 46-116 [facility] ALT [Catalytic activity/Vol] 17 U/L 16-63 [facility] AST [Catalytic activity/Vol] 20 U/L 15-37 [facility] Bilirubin [Mass/Vol] 0.5 mg/dL 0.2-1.0 [facility] Calcium [Mass/Vol] 9.2 mg/dL 8.5-10.1 [facility] Chloride [Moles/Vol] 104 mmol/L 98-107 [facility] Cholesterol [Mass/Vol] 117 mg/dL <=200 [facility] Cholesterol in HDL [Mass/Vol] 39 mg/dL Low 40-60 [facility] Comment on above: > or =60 mg/dl - LOW CARDIOVASCULAR RISK<40 mg/dl - HIGH CARDIOVASCULAR RISK CO2 [Moles/Vol] 28.5 mmol/L 21.0-32.0 [facility] Creatinine [Mass/Vol] 2.15 mg/dL High 0.70-1.30 [facility] GFR/1.73 sq M.predicted MDRD (S/P/Bld) [Vol rate/Area] 37 mL/min/{1.73_m2} Low >=60 mL/min/1.7 3m 2 [facility] Glucose [Mass/Vol] 220 mg/dL High 74-106 [facility] Potassium [Moles/Vol] 4.6 mmol/L 3.5-5.1 [facility] Protein [Mass/Vol] 8.0 g/dL 6.4-8.2 [facility] Sodium [Moles/Vol] 141 mmol/L 136-145 [facility] Triglyceride [Mass/Vol] 171 mg/dL High <=150 [facility] Urea nitrogen [Mass/Vol] 27.0 mg/dL High 7.0-18.0 [facility] Urea nitrogen/Creatinine [Mass ratio] 12.6 mg/mg [facility] Microalbumin [Mass/volume] i n Urineon 05-05-2024 Albumin DL <= 20 mg/L (U) [Mass/Vol] Microalbumin [Mass/volume] in Urine <=30.0 [facility] No Panel Informationon 05-05 Urine Random Creatinine 61.15 mg/dL 20.00-300. 00 [facility] Serum or plasma albumin/glob ulin mass ratioon 05-05-2024 Albumin/Globulin [Mass ratio] Serum or plasma albumin/globulin mass ratio [facility] Serum or plasma anion gap de terminationon 05-05-2024 Anion gap [Moles/Vol] Serum or plasma an ion gap determination [facility] Serum or plasma total choles terol/high density lipoprotein (HDL) cholesterol mass yulia 05-05-2024 Cholesterol.total/Chol esterol in HDL [Mass ratio] Serum or plasma total cholesterol/high density lipoprotein (HDL) cholesterol mass rat [facility] Comment on above: 3.3 - 4.4 LOW RISK4. 4 - 7.1 AVERAGE RISK7.1 - 11.0 MODERATE RISK>11.0 HIGH [facility]ISK Urine microalbumin/creatinin e mass ratioon 05-05-2024 Albumin/Creatinine DL <= 20 mg/L (U) [Mass ratio] Urine microalbumin/creatinine mass ratio High 0.0-29.9 [facility] Comment on above: NO MICROALBUMINURIA 0-29 MG/GCLINICAL MICROALBUMINURIA 30-300 MG/GMACROALBUMINURIA >300 MG/G HbA1c HPLC (Bld) [Mass fract ion]on 04-30-2024 HbA1c (Bld) [Mass fraction] Hemoglobin A1c/Hemoglobin.total in Blood by HPLC [facility] No Panel Informationon 04-30 Bedside Glucose 158 [facility] Office Visiton 03-10-2024 Follow-up visit [id number] Lani Lizama 1950 M Date Provider Department Center 03/10/2024 KEVIN DEMPSEY MARCELINO Armas Family History Problem Relation Age of Onset Heart attack Mother Other Father Other Brother Heart attack Maternal Grandmother Heart attack Maternal Grandfather Family Status - Relation Status Age at Mother Father Brother Maternal Grandmother Maternal Grandfather Level of Service:28017 OR OFFICE/OUTPATIENT NEW LOW MDM 30 MINUTES Normal [facility] 30on 02-14-2024 30 The patient is Moder ately Stable - Low risk of patient condition declining or worsening The patient's goals for the shift include get better The clinical goals for the shift include VSS Normal [facility] 30 The patient is Moder ately Stable [...] and behaviors that affect risk of falls [place] fall precautions as indicated by assessment Educate [...] and prevent overall improvement and discharge Normal [facility] BASIC METABOLIC PANELon 01-30 Anion gap [Moles/Vol] 9 mmol/L Normal 7-20 [facility] Comment on above: Performed By: #### L [id number] #### [facility] ([facility]) [address] [place] [address] Calcium [Mass/Vol] 8.4 mg/dL Low 8.6-10.3 [facility] Comment on above: Performed By: #### L [id number] #### [facility] ([facility]) [address] [place] [address] Chloride [Moles/Vol] 109 mmol/L High 98-107 [facility] Comment on above: Performed By: #### L [id number] #### [facility] ([facility]) [address] [place] [address] CO2 [Moles/Vol] 25 mmol/L Normal 21-31 [facility] Comment on above: Performed By: #### L [id number] #### [facility] ([facility]) [address] [place] [address] Creatinine [Mass/Vol] 1.65 mg/dL High 0.70-1.30 [facility] Comment on above: Performed By: #### L [id number] #### [facility] ([facility]) [address] [place] [address] GLOMERULAR FILTRATION RATE ML/MIN/1.73 SQ M.PREDICTED 43.8 mL/min/1.73m*2 Low >60.0 [facility] Comment on above: Result Comment: The [facility]???s estimated glomerular filtration rate (eGFR) will no [...] individuals. Performed By: #### L [id number] #### [facility] ([facility]) [address] [place] [address] Glucose [Mass/Vol] 118 mg/dL High 70-100 [facility] Comment on above: Performed By: #### L [id number] #### [facility] ([facility]) [address] [place] [address] Potassium [Moles/Vol] 4.3 mmol/L Normal 3.5-5.1 [facility] Comment on above: Performed By: #### L [id number] #### [facility] [address] [place] [address] Sodium [Moles/Vol] 139 mmol/L Normal 136-145 [facility] Comment on above: Performed By: #### L [id number] #### [facility] [address] [place] [address] Urea nitrogen [Mass/Vol] 19 mg/dL Normal 7-25 [facility] Comment on above: Performed By: #### L [id number] #### [facility] ([facility]) [address] [place] [address] UREA NITROGEN/CREATININE (MASS RATIO) IN SER/PLAS 11.5 Normal [facility] Comment on above: Performed By: #### L [id number] #### [facility] ([facility] [address] [place] [address] CBCon 02-14-2024 Erythrocyte distribution width (RBC) [Ratio] 13.8 % Normal 11.5-15.0 [facility] Comment on above: Performed By: #### L [id number] #### [facility] ([facility] [address] [place] [address] ERYTHROCYTE MEAN CORPUSCULAR HEMOGLOBIN CONCENTRATION (G/DL) BY AUTOMATED 32.9 g/dL Normal 32.0-35.0 [facility] Comment on above: Performed By: #### L [id number] #### [facility] ([facility] [address] [place] [address] Hematocrit (Bld) [Volume fraction] 38.0 % Low 39.0-55.0 [facility] Comment on above: Performed By: #### L [id number] #### [facility] [address] [place] [address] Hemoglobin (Bld) [Mass/Vol] 12.5 g/dL Low 13.0-17.0 [facility] Comment on above: Performed By: #### L [id number] #### [facility] ([facility]) [address] [place] [address] MCH (RBC) [Entitic mass] 30.1 pg Normal 27.0-33.0 [facility] Comment on above: Performed By: #### L [id number] #### [facility] ([facility]) [address] [place] [address] MCV (RBC) [Entitic vol] 91.6 fL Normal 82.0-98.0 [facility] Comment on above: Performed By: #### L [id number] #### [facility] ([facility]) [address] [place] [address] PLATELETS (10*3/UL) IN BLOOD AUTOMATED COUNT 176 10*3/uL Normal 150-400 [facility] Comment on above: Performed By: #### L [id number] #### [facility] ([facility]) [address] [place] [address] RBC (Bld) [#/Vol] 4.15 10*6/uL Low 4.20-5.70 [facility] Comment on above: Performed By: #### L [id number] #### [facility] ([facility]) [address] [place] [address] WBC (Bld) [#/Vol] 6.88 10*3/uL Normal 4.00-10.60 [facility] Comment on above: Performed By: #### L [id number] #### [facility] ([facility]) [address] [place] [address] NURSNOTEon 02-14-2024 NURSNOTE Discharge instructio n given , patient verbalized understanding, no follow up questions asked Normal [facility] POCT GLUCOSE METER UNSOLICIT ED RESULTSon 11-15-2024 Glucose [Mass/Vol] 231 mg/dL High 70-105 [facility] Comment on above: Order Comment: Waive d Testing in the ED is performed under the ED CLIA certificate #[id number]. Result Comment: [email or web address] enl3 Performed By: #### L [id number] #### [facility] ([facility]) [address] [place] [address] Glucose [Mass/Vol] 128 mg/dL High 70-105 [facility] Comment on above: Order Comment: Waive d Testing in the ED is performed under the ED CLIA certificate #[id number]. Result Comment: [email or web address] [email or web address] Performed By: #### L [id number] #### [facility] ([facility]) [address] [place] [address] TROPONIN Ion 02-14-2024 Troponin I.cardiac [Mass/Vol] 1.08 ng/mL Critically high 0.00-0.04 [facility] Comment on above: Result Comment: M-OR EVIOUS CRITICAL RESULT Previous result verified on 02/14/2024 0605 on specimen/case [id number] called with component Troponin I for procedure Troponin I with value 1.69 ng/mL. Performed By: #### L [id number] #### [facility] ([facility]) [address] [place] [address] Troponin I.cardiac [Mass/Vol] 1.69 ng/mL Critically high 0.00-0.04 [facility] Comment on above: Performed By: #### L [id number] #### [facility] ([facility]) [address] [place] [address] 30on 02-13-2024 30 The patient is Moder ately Stable - Low risk of patient condition declining or worsening The patient's goals for the shift include get better The clinical goals for the shift include VSS Normal [facility] 30 The patient is Moder ately Stable [...] and behaviors that affect risk of falls [place] fall precautions as indicated by assessment Educate [...] and behaviors that affect risk of falls [place] fall precautions as indicated by assessment Educate [...] and prevent overall improvement and discharge Normal [facility] ANTI-XA (HEPARIN LEVEL)on HEPARIN UNFRACTIONATED (U/ML) IN PPP BY CHROMOGENIC METHOD 0.85 IU/mL High 0.3-0.7 [facility] Comment on above: Order Comment: Check anti-Xa level every 6 hours while on heparin infusion, or per protocol. Result Comment: [place] roxaban and Apixaban will interfere with the anti Xa assay used to monitor UFH and LMWH. Performed By: #### L [id number] #### [facility] ([facility]) [address] [place] [address] APTTon 02-13-2024 ACTIVATED PARTIAL THROMBOPLASTIN TIME IN PPP BY COAGULATION ASSAY 93.5 Seconds High 25.0-35.0 [facility] Comment on above: Order Comment: Basel ine aPTT before initiating heparin infusion. Result Comment: Clin ical significance of the APTT is questionable in the presence of heparin. Performed By: #### L [id number] #### [facility] ([facility]) [address] [place] [address] B-TYPE NATRIURETIC PEPTIDEon 02-13-2024 Natriuretic peptide B (Bld) [Mass/Vol] 693 pg/mL High 0-100 [facility] Comment on above: Performed By: #### L [id number] #### [facility] ([facility]) [address] [place] [address] BASIC METABOLIC PANELon 11- Anion gap [Moles/Vol] 10 mmol/L Normal 7-20 [facility] Comment on above: Performed By: #### L [id number] #### [facility] ([facility]) [address] [place] [address] Calcium [Mass/Vol] 8.9 mg/dL Normal 8.6-10.3 [facility] Comment on above: Performed By: #### L [id number] #### [facility] ([facility]) [address] [place] [address] Chloride [Moles/Vol] 107 mmol/L Normal 98-107 [facility] Comment on above: Performed By: #### L [id number] #### [facility] ([facility]) [address] [place] [address] CO2 [Moles/Vol] 25 mmol/L Normal 21-31 [facility] Comment on above: Performed By: #### L [id number] #### [facility] [address] [place] [address] Creatinine [Mass/Vol] 1.61 mg/dL High 0.70-1.30 [facility] Comment on above: Performed By: #### L [id number] #### [facility] ([facility] [address] [place] [address] GLOMERULAR FILTRATION RATE ML/MIN/1.73 SQ M.PREDICTED 45.2 mL/min/1.73m*2 Low >60.0 [facility] Comment on above: Result Comment: The [facility]???s estimated glomerular filtration rate (eGFR) will no [...] individuals. Performed By: #### L [id number] #### [facility] ([facility]) [address] [place] [address] Glucose [Mass/Vol] 174 mg/dL High 70-100 [facility] Comment on above: Performed By: #### L [id number] #### [facility] ([facility]) [address] [place] [address] Potassium [Moles/Vol] 4.3 mmol/L Normal 3.5-5.1 [facility] Comment on above: Performed By: #### L [id number] #### [facility] ([facility]) [address] [place] [address] Sodium [Moles/Vol] 138 mmol/L Normal 136-145 [facility] Comment on above: Performed By: #### L [id number] #### [facility] ([facility]) [address] [place] [address] Urea nitrogen [Mass/Vol] 20 mg/dL Normal 7-25 [facility] Comment on above: Performed By: #### L [id number] #### [facility] ([facility]) [address] [place] [address] UREA NITROGEN/CREATININE (MASS RATIO) IN SER/PLAS 12.4 Normal [facility] Comment on above: Performed By: #### L [id number] #### [facility] [facility] ([facility]) [address] [place] [address] CBC WITH AUTO DIFFERENTIALon 02-13-2024 Basophils (Bld) [#/Vol] 0.05 10*3/uL Normal 0.00-0.20 [facility] Comment on above: Performed By: #### L [id number] #### [facility] ([facility]) [address] [place] [address] Basophils/100 WBC (Bld) 0.7 % Normal 0.0-1.0 [facility] Comment on above: Performed By: #### L [id number] #### [facility] ([facility]) [address] [place] [address] Eosinophils (Bld) [#/Vol] 0.13 10*3/uL Normal 0.00-0.50 [facility] Comment on above: Performed By: #### L [id number] #### [facility] ([facility]) [address] [place] [address] Eosinophils/100 WBC (Bld) 1.8 % Normal 0.0-6.0 [facility] Comment on above: Performed By: #### L [id number] #### [facility] ([facility]) [address] [place] [address] Erythrocyte distribution width (RBC) [Ratio] 13.4 % Normal 11.5-15.0 [facility] Comment on above: Performed By: #### L [id number] #### [facility] ([facility]) [address] [place] [address] ERYTHROCYTE MEAN CORPUSCULAR HEMOGLOBIN CONCENTRATION (G/DL) BY AUTOMATED 34.1 g/dL Normal 32.0-35.0 [facility] Comment on above: Performed By: #### L [id number] #### [facility] ([facility]) [address] [place] [address] Hematocrit (Bld) [Volume fraction] 40.2 % Normal 39.0-55.0 [facility] Comment on above: Performed By: #### L [id number] #### [facility] ([facility]) [address] [place] [address] Hemoglobin (Bld) [Mass/Vol] 13.7 g/dL Normal 13.0-17.0 [facility] Comment on above: Performed By: #### L [id number] #### [facility] ([facility]) [address] [place] [address] Immature granulocytes (Bld) [#/Vol] 0.03 10*3/uL Normal 0.00-0.20 [facility] Comment on above: Performed By: #### L [id number] #### [facility] [address] [place] [address] Immature granulocytes/100 WBC (Bld) 0.4 % Normal 0.0-1.0 [facility] Comment on above: Performed By: #### L [id number] #### [facility] ([facility]) [address] [place] [address] Lymphocytes (Bld) [#/Vol] 1.64 10*3/uL Normal 1.20-4.00 [facility] Comment on above: Performed By: #### L [id number] #### [facility] ([facility]) [address] [place] [address] Lymphocytes/100 WBC (Bld) 22.3 % Normal 20.0-45.0 [facility] Comment on above: Performed By: #### L [id number] #### [facility] ([facility]) [address] [place] [address] MCH (RBC) [Entitic mass] 30.2 pg Normal 27.0-33.0 [facility] Comment on above: Performed By: #### L [id number] #### [facility] ([facility] [address] [place] [address] MCV (RBC) [Entitic vol] 88.5 fL Normal 82.0-98.0 [facility] Comment on above: Performed By: #### L [id number] #### [facility] ([facility]) [address] [place] [address] Monocytes (Bld) [#/Vol] 0.69 10*3/uL Normal 0.10-1.00 [facility] Comment on above: Performed By: #### L [id number] #### [facility] ([facility]) [address] [place] [address] Monocytes/100 WBC (Bld) 9.4 % Normal 5.0-12.0 [facility] Comment on above: Performed By: #### L [id number] #### [facility] ([facility]) [address] [place] [address] Neutrophils (Bld) [#/Vol] 4.80 10*3/uL Normal 1.60-7.60 [facility] Comment on above: Performed By: #### L [id number] #### [facility] ([facility]) [address] [place] [address] Neutrophils/100 WBC (Bld) 65.4 % Normal 40.0-72.0 [facility] Comment on above: Performed By: #### L [id number] #### [facility] ([facility]) [address] [address] NRBC (PER 100 WBCS) BY AUTOMATED COUNT 0.0 % Normal 0 [facility] Comment on above: Performed By: #### L [id number] #### [facility] ([facility]) [address] [place] [address] PLATELETS (10*3/UL) IN BLOOD AUTOMATED COUNT 202 10*3/uL Normal 150-400 [facility] Comment on above: Performed By: #### L [id number] #### [facility] ([facility]) [address] [address] RBC (Bld) [#/Vol] 4.54 10*6/uL Normal 4.20-5.70 [facility] Comment on above: Performed By: #### L [id number] #### [facility] ([facility]) [address] [address] WBC (Bld) [#/Vol] 7.34 10*3/uL Normal 4.00-10.60 [facility] Comment on above: Performed By: #### L [id number] #### [facility] ([facility]) [address] [address] CONSULTon 02-13-2024 CONSULT ----- ----- Attestation signed by Fabricio Mendoza MD at [...] hydration before LHC. Continue to follow peripherally. ----- Nephrology Consult Note Patient : Lani Lizama; [...] III who presented as a transferred from [facility] with NSTEMI. Cardiology planning for cath [...] (H) 08/31 (more content not included)... Normal [facility] CONSULT ----- ----- Attestation signed by Yfn Yost MD at [...] and CKD in outpatient setting Continue crestor ----- Cardiology Consult Note Reason for Consult: Chest pain HPI: Lani Lizama is a 73 y.o. male CAD s/p CABGX5 and recent PCI 08/2023, HFrEF 15-20% s/p Biv-ICD, hypertension, hyperlipidemia, type 2 diabetes mellitus, peripheral vascular disease, and CKD stage III who presented as a transferred from [facility] with NSTEMI. The patient complained of [...] nitro drip. When he arrived to [facility] he was chest pain-free. Troponin this [...] (CMS/HCC), and Third degree heart block (CMS/[facility]). Surgical History He has a past surgical [...] PAIN pantoprazole (Pr (more content not included)... [facility] HPon 02-13-2024 HP H&P reviewed. The patient has significant CAD [...] procedure. All questions were addressed and answered. Jenyn Fernandez MD Transaction Manager - PGY6 [facility] Pt seen and examined. Agree with above Parul Pena MD [facility] MAGNESIUMon 02-13-2024 Magnesium [Mass/Vol] 2.0 mg/dL Normal 1.9-2.7 [facility] Comment on above: Performed By: #### L [id number] #### [facility] ([facility]) [address] [place] [address] POCT GLUCOSE METER UNSOLICIT ED RESULTSon 02-13-2024 Glucose [Mass/Vol] 200 mg/dL High 70-105 [facility] Comment on above: Order Comment: Waive d Testing in the ED is performed under the ED CLIA certificate #[id number]. Result Comment: [email or web address] [email or web address] Performed By: #### L [id number] #### [facility] ([facility]) [address] [place] [address] Glucose [Mass/Vol] 187 mg/dL High 70-105 [facility] Comment on above: Order Comment: Waive d Testing in the ED is performed under the ED CLIA certificate #[id number]. Result Comment: [email or web address] Performed By: #### L [id number] #### [facility] (BEAKER) [address] [place] [address] Glucose [Mass/Vol] 141 mg/dL High 70-105 [facility] Comment on above: Order Comment: Waive d Testing in the ED is performed under the ED CLIA certificate #[id number]. Result Comment: [email or web address] Performed By: #### L [id number] #### [facility] ([employer]) [address] [place] [address] Glucose [Mass/Vol] 166 mg/dL High 70-105 [facility] Comment on above: Order Comment: Waive d Testing in the ED is performed under the ED CLIA certificate #[id number]. Result Comment: [email or web address] Performed By: #### L [id number] #### [facility] ([employer]) [address] [place] [address] PROTIME-INRon 02-13-2024 INR IN PPP BY COAGULATION ASSAY 1.17 High 0.90-1.10 [facility] Comment on above: Result Comment: ACCC P [...] 1995;[id number]. Performed By: #### L [id number] #### [facility] ([employer]) [address] [place] [address] PROTHROMBIN TIME (PT) IN PPP BY COAGULATION ASSAY 14.9 Seconds High 12.3-14.8 [facility] Comment on above: Performed By: #### L [id number] #### [facility] ([facility]) [address] [place] [address] TROPONIN Ion 02-13-2024 Troponin I.cardiac [Mass/Vol] 2.02 ng/mL Critically high 0.00-0.04 [facility] Comment on above: Result Comment: M-OR EVIOUS CRITICAL RESULT Previous result verified on 02/13/2024 0606 on specimen/case [id number] called with component Troponin I for procedure Troponin I with value 3.34 ng/mL. Performed By: #### L [id number] #### [facility] ([facility]) [address] [place] [address] Troponin I.cardiac [Mass/Vol] 2.10 ng/mL Critically high 0.00-0.04 [facility] Comment on above: Result Comment: M-OR EVIOUS CRITICAL RESULT Previous result verified on 02/13/2024 0606 on specimen/case [id number] called with component Troponin I for procedure Troponin I with value 3.34 ng/mL. Performed By: #### L [id number] #### [facility] ([facility]) [address] [place] [address] Troponin I.cardiac [Mass/Vol] 3.34 ng/mL Critically high 0.00-0.04 [facility] Comment on above: Result Comment: M-TR OPONIN INITIAL CRITICAL HIGH; RESPUN AND RETESTED Performed By: #### L [id number] #### [facility] ([facility]) [address] [place] [address] Activated partial thrombopla stin time (aPTT) in platelet poor plasma by coagulation aon 02-12-2024 aPTT Coag (PPP) [Time] Activated partial thromboplastin time (aPTT) in platelet poor plasma by coagulation a 22.3-36.2 [facility] Basophils Auto (Bld) [#/Vol] on 02-12-2024 Basophils (Bld) [#/Vol] Automated basophil count 0.0-0.1 [facility] Basophils/100 WBC Auto (Bld) on 02-12-2024 Basophils/100 WBC (Bld) Automated basophil % 0.2-2.0 [facility] Eosinophils/100 WBC Auto (Bl d)on 02-12-2024 Eosinophils/100 WBC (Bld) Automated eosinophil % 0.9-7.0 [facility] Erythrocyte distribution wid th Auto (RBC) [Ratio]on 02-12-2024 Erythrocyte distribution width (RBC) [Ratio] Erythrocyte distribution width [Ratio] by Automated count 11.0-15.0 [facility] Estimated glomerular filtrat ion rate (GFR) non- Americanon 02-12-2024 GFR/1.73 sq M.predicted among non-blacks MDRD (S/P/Bld) [Vol rate/Area] Estimated glomerular filtration rate (GFR) non- Low >=60 mL/min/1.7 3m 2 [facility] Hematocrit Auto (Bld) [Volum e fraction]on 02-12-2024 Hematocrit (Bld) [Volume fraction] Hematocrit [Volume Fraction] of Blood by Automated count 42.0-54.0 [facility] Hemoglobin [Mass/volume] in Bloodon 02-12-2024 Hemoglobin (Bld) [Mass/Vol] Hemoglobin [Mass/volume] in Blood 14.0-18.0 [facility] INR in Platelet poor plasma by Coagulation assayon 02-12-2024 INR Coag (PPP) [Relative time] INR in Platelet poor plasma by Coagulation assay [facility] Comment on above: DESIRED INR:2.0-3.0 CONDITIONS NOT LISTED BELOW2.5-3.5 FOR PROSTHETIC HEART VALVE REPLACEMENT2.5-3.5 RECURRENT THROMBOSIS Laboratory - Chemistry and C hemistry - challengeon 02-12-2024 Calcium [Mass/Vol] 9.4 mg/dL 8.5-10.1 [facility] Chloride [Moles/Vol] 106 mmol/L 98-107 [facility] CO2 [Moles/Vol] 22.9 mmol/L 21.0-32.0 [facility] Creatinine [Mass/Vol] 1.97 mg/dL High 0.70-1.30 [facility] GFR/1.73 sq M.predicted MDRD (S/P/Bld) [Vol rate/Area] 41 mL/min/{1.73_m2} Low >=60 mL/min/1.7 3m 2 [facility] Glucose [Mass/Vol] 236 mg/dL High 74-106 [facility] Potassium [Moles/Vol] 3.9 mmol/L 3.5-5.1 [facility] Comment on above: SPECIMEN SLIGHTLY HE MOLYZED Sodium [Moles/Vol] 141 mmol/L 136-145 [facility] Urea nitrogen [Mass/Vol] 21.0 mg/dL High 7.0-18.0 [facility] Urea nitrogen/Creatinine [Mass ratio] 10.7 mg/mg [facility] Laboratory - Hematology and Cell countson 02-12-2024 Immature granulocytes/100 WBC (Bld) 0.5 % 0.0-0.5 [facility] Leukocytes [#/volume] correc soraya for nucleated erythrocytes in Blood by Automated counon 02-12-2024 WBC corrected for nucl RBC Auto (Bld) [#/Vol] Leukocytes [#/volume] corrected for nucleated erythrocytes in Blood by Automated coun 4.0-11.0 [facility] Lymphocytes Auto (Bld) [#/Vo l]on 02-12-2024 Lymphocytes (Bld) [#/Vol] Lymphocytes [#/volume] in Blood by Automated count 1.2-3.8 [facility] Lymphocytes/100 WBC Auto (Bl d)on 02-12-2024 Lymphocytes/100 WBC (Bld) Lymphocytes/100 leukocytes in Blood by Automated count 20.5-60.0 [facility] MCH Auto (RBC) [Entitic mass ]on 02-12-2024 MCH (RBC) [Entitic mass] MCH [Entitic mass] by Automated count 25.9-34.0 [facility] MCHC Auto (RBC) [Mass/Vol]on 02-12-2024 MCHC (RBC) [Mass/Vol] MCHC [Mass/volume] by Automated count 29.9-35.2 [facility] MCV Auto (RBC) [Entitic vol] on 02-12-2024 MCV (RBC) [Entitic vol] MCV [Entitic volume] by Automated count 80.0-94.0 [facility] Monocytes Auto (Bld) [#/Vol] on 02-12-2024 Monocytes (Bld) [#/Vol] Automated blood monocyte count 0.3-0.8 [facility] Monocytes/100 WBC Auto (Bld) on 02-12-2024 Monocytes/100 WBC (Bld) Automated monocyte % 1.7-12.0 [facility] Neutrophils Auto (Bld) [#/Vo l]on 02-12-2024 Neutrophils (Bld) [#/Vol] Neutrophils [#/volume] in Blood by Automated count 1.4-6.5 [facility] Neutrophils/100 WBC Auto (Bl d)on 02-12-2024 Neutrophils/100 WBC (Bld) Automated neutrophil % 43.0-75.0 [facility] No Panel Informationon 02-11 Troponin I High Sensitivity 85.0 pg/mL Critically high 4.0-76.1 [facility] Comment on above: RESULTS CALLED [...] Eosinophils # (Auto) 0.2 10 3/uL 0.0-0.7 [facility] Immature Granulocyte # (Auto) 0.04 10 3/uL High 0.00-0.03 [facility] Platelet mean volume Auto (B ld) [Entitic vol]on 02-12-2024 Platelet mean volume (Bld) [Entitic vol] Platelet mean volume [Entitic volume] in Blood by Automated count 9.5-13.5 [facility] Platelets Auto (Bld) [#/Vol] on 02-12-2024 Platelets (Bld) [#/Vol] Platelets [#/volume] in Blood by Automated count 150-450 [facility] Prothrombin time (PT)on 01-30 PT Coag (PPP) [Time] Prothrombin time (PT) 9.0- 11.6 [facility] RBC Auto (Bld) [#/Vol]on RBC (Bld) [#/Vol] Erythrocytes [#/volu me] in Blood by Automated count 4.70-6.10 [facility] Serum or plasma anion gap de terminationon 02-12-2024 Anion gap [Moles/Vol] Serum or plasma an ion gap determination [facility] Erythrocyte distribution wid th Auto (RBC) [Ratio]on 12-30-2023 Erythrocyte distribution width (RBC) [Ratio] 14.3 % 11.0-15.0 [facility] Estimated glomerular filtrat ion rate (GFR) non- Americanon 12-30-2023 GFR/1.73 sq M.predicted among non-blacks MDRD (S/P/Bld) [Vol rate/Area] 31 mL/min/{1.73_m2} Low >=60 [facility] Hematocrit Auto (Bld) [Volum e fraction]on 12-30-2023 Hematocrit (Bld) [Volume fraction] 45.2 % 42.0-54.0 [facility] Hemoglobin [Mass/volume] in Bloodon 12-30-2023 Hemoglobin (Bld) [Mass/Vol] 14.8 g/dL 14.0-18.0 [facility] Laboratory - Chemistry and C hemistry - challengeon 12-30-2023 Albumin [Mass/Vol] 3.8 g/dL 3.4-5.0 [facility] Calcium [Mass/Vol] 9.9 mg/dL 8.5-10.1 [facility] Chloride [Moles/Vol] 103 mmol/L 98-107 [facility] CO2 [Moles/Vol] 27.9 mmol/L 21.0-32.0 [facility] Creatinine [Mass/Vol] 2.10 mg/dL High 0.70-1.30 [facility] GFR/1.73 sq M.predicted MDRD (S/P/Bld) [Vol rate/Area] 38 mL/min/{1.73_m2} Low >=60 [facility] Glucose [Mass/Vol] 207 mg/dL High 74-106 [facility] Magnesium [Mass/Vol] 2.1 mg/dL 1.8-2.4 [facility] Potassium [Moles/Vol] 4.7 mmol/L 3.5-5.1 [facility] Sodium [Moles/Vol] 137 mmol/L 136-145 [facility] Urate [Mass/Vol] 4.1 mg/dL 3.5-7.2 [facility] Urea nitrogen [Mass/Vol] 29.0 mg/dL High 7.0-18.0 [facility] Urea nitrogen/Creatinine [Mass ratio] 13.8 mg/mg [facility] Laboratory - Urinalysison Protein (U) [Mass/Vol] 26.9 mg/dL High <=11.9 [facility] Leukocytes [#/volume] correc soraya for nucleated erythrocytes in Blood by Automated counon 12-30-2023 WBC corrected for nucl RBC Auto (Bld) [#/Vol] 8.7 10 3/uL 4.0-11.0 [facility] MCH Auto (RBC) [Entitic mass ]on 12-30-2023 MCH (RBC) [Entitic mass] 30.0 pg 25.9-34.0 [facility] MCHC Auto (RBC) [Mass/Vol]on 12-30-2023 MCHC (RBC) [Mass/Vol] 32.7 g/dL 29.9-35.2 [facility] MCV Auto (RBC) [Entitic vol] on 12-30-2023 MCV (RBC) [Entitic vol] 91.7 fL 80.0-94.0 [facility] No Panel Informationon 12-29 25-Hydroxy Vitamin D Total 47.5 ng/mL [facility] Comment on above: <20 ng/mL Vit D defi cient20-<30 ng/mL Vit D tzadnclmerak17-965 ng/mL Vit D sufficient>100 ng/mL Potential Toxicity Parathyroid Hormone (Intact) 27 pg/mL 15-65 [facility] Comment on above: Performed at: [address] [id number] Director: Kwaku Park PhD, Phone: [phone] Phosphorus Level 3.7 mg/dL 2.6-4.7 [facility] Urine Random Creatinine 85.11 mg/dL 20.00-300. 00 [facility] Platelet mean volume Auto (B ld) [Entitic vol]on 12-30-2023 Platelet mean volume (Bld) [Entitic vol] 9.3 fL Low 9.5-13.5 [facility] Platelets Auto (Bld) [#/Vol] on 12-30-2023 Platelets (Bld) [#/Vol] 193 10 3/uL 150-450 [facility] RBC Auto (Bld) [#/Vol]on RBC (Bld) [#/Vol] 4.93 10 6/uL 4.70-6.10 [facility] Serum or plasma anion gap de terminationon 12-30-2023 Anion gap [Moles/Vol] 10.8 mmol/L [facility] Urine protein/creatinine rat ioon 12-30-2023 Protein/Creatinine (U) [Ratio] 0.32 [facility] HbA1c HPLC (Bld) [Mass fract ion]on 10-17-2023 HbA1c (Bld) [Mass fraction] 7.5 % [facility] No Panel Informationon 10-16 Bedside Glucose 108 [facility] Office Visiton 10-07-2023 Follow-up visit [id number] Lani Lizama 1950 M Date Provider Department Center 10/07/2023 271-PINKY BISHOP CARD [facility] Family History Problem Relation Age of Onset Heart attack Mother Other Father Other Brother Heart attack Maternal Grandmother Heart attack Maternal Grandfather Family Status - Relation Status Age at Mother Father Brother Maternal Grandmother Maternal Grandfather Level of Service:33159 OR OFFICE/OUTPATIENT ESTABLISHED LOW MDM 20 MIN Normal [facility] 30on 09-28-2023 30 The patient is Moder [...] to stop on the way home. Normal [facility] BASIC METABOLIC PANELon 06-2 Anion gap [Moles/Vol] 13 mmol/L Normal 7-20 [facility] Comment on above: Performed By: #### L [id number] #### [facility] ([facility]) [address] [place] [address] Calcium [Mass/Vol] 8.8 mg/dL Normal 8.6-10.3 [facility] Comment on above: Performed By: #### L [id number] #### [facility] ([facility]) [address] [place] [address] Chloride [Moles/Vol] 104 mmol/L Normal 98-107 [facility] Comment on above: Performed By: #### L [id number] #### [facility] ([facility]) [address] [place] [address] CO2 [Moles/Vol] 24 mmol/L Normal 21-31 [facility] Comment on above: Performed By: #### L [id number] #### [facility] ([facility]) [address] [place] [address] Creatinine [Mass/Vol] 1.59 mg/dL High 0.70-1.30 [facility] Comment on above: Performed By: #### L [id number] #### [facility] ([facility]) [address] [place] [address] GLOMERULAR FILTRATION RATE ML/MIN/1.73 SQ M.PREDICTED 46.1 mL/min/1.73m*2 Low >60.0 [facility] Comment on above: Result Comment: [facility]???s estimated glomerular filtration rate (eGFR) will no [...] individuals. Performed By: #### L [id number] #### [facility] ([facility]) [address] [place] [address] Glucose [Mass/Vol] 188 mg/dL High 70-100 [facility] Comment on above: Performed By: #### L [id number] #### [facility] ([facility]) [address] [place] [address] Potassium [Moles/Vol] 4.1 mmol/L Normal 3.5-5.1 [facility] Comment on above: Performed By: #### L [id number] #### [facility] ([facility]) [address] [place] [address] Sodium [Moles/Vol] 137 mmol/L Normal 136-145 [facility] Comment on above: Performed By: #### L [id number] #### [facility] ([facility]) [address] [place] [address] Urea nitrogen [Mass/Vol] 26 mg/dL High 7-25 [facility] Comment on above: Performed By: #### L [id number] #### [facility] ([facility]) [address] [place] [address] UREA NITROGEN/CREATININE (MASS RATIO) IN SER/PLAS 16.4 Normal [facility] Comment on above: Performed By: #### L [id number] #### [facility] ([facility]) [address] [place] [address] CBCon 09-28-2023 Erythrocyte distribution width (RBC) [Ratio] 14.2 % Normal 11.5-15.0 [facility] Comment on above: Performed By: #### L [id number] #### [facility] ([facility]) [address] [place] [address] ERYTHROCYTE MEAN CORPUSCULAR HEMOGLOBIN CONCENTRATION (G/DL) BY AUTOMATED 33.2 g/dL Normal 32.0-35.0 [facility] Comment on above: Performed By: #### L [id number] #### [facility] ([facility]) [address] [place] [address] Hematocrit (Bld) [Volume fraction] 43.4 % Normal 39.0-55.0 [facility] Comment on above: Performed By: #### L [id number] #### [facility] ([facility]) [address] [place] [address] Hemoglobin (Bld) [Mass/Vol] 14.4 g/dL Normal 13.0-17.0 [facility] Comment on above: Performed By: #### L [id number] #### [facility] ([facility]) [address] [place] [address] MCH (RBC) [Entitic mass] 28.4 pg Normal 27.0-33.0 [facility] Comment on above: Performed By: #### L [id number] #### [facility] ([facility]) [address] [place] [address] MCV (RBC) [Entitic vol] 85.6 fL Normal 82.0-98.0 [facility] Comment on above: Performed By: #### L [id number] #### [facility] ([facility]) [address] [place] [address] PLATELETS (10*3/UL) IN BLOOD AUTOMATED COUNT 159 10*3/uL Normal 150-400 [facility] Comment on above: Performed By: #### L [id number] #### [facility] ([facility]) [address] [place] [address] RBC (Bld) [#/Vol] 5.07 10*6/uL Normal 4.20-5.70 [place] [facility] Comment on above: Performed By: #### L [id number] #### [facility] ([facility]) [address] [place] [address] WBC (Bld) [#/Vol] 7.88 10*3/uL Normal 4.00-10.60 [facility] Comment on above: Performed By: #### L [id number] #### [facility] ([facility]) [address] [place] [address] POCT GLUCOSE METER UNSOLICIT ED RESULTSon 09-28-2023 Glucose [Mass/Vol] 176 mg/dL High 70-105 [facility] Comment on above: Order Comment: Waive d Testing in the ED is performed under the ED CLIA certificate #[id number]. Result Comment: [email or web address] [email or web address] Performed By: #### L [id number] #### [facility] ([facility]) [address] [place] [address] 30on 09-27-2023 30 Problem: Pain - Adul [...] shift include stable VS, cardiac cath Normal [facility] 30 Daily Case Managemen t Update Multidisciplinary rounds have been completed. Barriers to Discharge: Patient is a direct admitted from [place], due chest pain and elevated troponin. Tx to [facility], most recent Cardiology consulted and are planning to take patient for heart cath today. Discharge dispo: pending clinical course, at this time plan is for patient to discharge home when medically ready. Diet: Dietary Orders (From admission, onward) Start Ordered 09/27/23 0001 Diet NPO Diet effective midnight Comments: Ice Chips Question: Reason for NPO: Answer: Operation/Procedure 09/26/23 4236 Physician Expected Discharge Date: 09/28/2023 Discharge Delays: PT Six Click Score: 24 OT Six Click Score: PT Recommendations: OT Recommendations: New Consults: Consult Orders (From admission, onward) Start Ordered 09/26/23 1713 Inpatient consult to Cardiology Once Specialty: Cardiology Provider: (Not yet assigned) Question Answer Comment Consulting Group CARDIOLOGY TEAM Reason for Consult? nstemi Level of Consultation Consultation and Management 09/26/23 1713 Normal [facility] 30 The patient is Moder ately Unstable [...] and maintained or improved Outcome: Progressing Normal [facility] ANTI-XA (HEPARIN LEVEL)on HEPARIN UNFRACTIONATED (U/ML) IN PPP BY CHROMOGENIC METHOD 0.47 IU/mL Normal 0.3-0.7 [facility] Comment on above: Order Comment: Check anti-Xa level every 6 hours while on heparin infusion, or per protocol. Result Comment: Rhona roxaban and Apixaban will interfere with the anti Xa assay used to monitor UFH and LMWH. Performed By: #### L [id number] #### [facility] ([facility]) [address] [place] [address] HEPARIN UNFRACTIONATED (U/ML) IN PPP BY CHROMOGENIC METHOD 0.55 IU/mL Normal 0.3-0.7 [facility] Comment on above: Order Comment: Check anti-Xa level every 6 hours while on heparin infusion, or per protocol. Result Comment: Rhona roxaban and Apixaban will interfere with the anti Xa assay used to monitor UFH and LMWH. Performed By: #### L [id number] #### [facility] ([facility]) [address] [place] [address] BASIC METABOLIC PANELon 08-31 Anion gap [Moles/Vol] 16 mmol/L Normal 7-20 [facility] Comment on above: Performed By: #### L [id number] #### [facility] ([facility]) [address] [place] [address] Calcium [Mass/Vol] 9.2 mg/dL Normal 8.6-10.3 [facility] Comment on above: Performed By: #### L [id number] #### [facility] ([facility]) [address] [place] [address] Chloride [Moles/Vol] 105 mmol/L Normal 98-107 [facility] Comment on above: Performed By: #### L [id number] #### [facility] ([facility]) [address] [place] [address] CO2 [Moles/Vol] 23 mmol/L Normal 21-31 [facility] Comment on above: Performed By: #### L [id number] #### [facility] ([facility]) [address] [place] [address] Creatinine [Mass/Vol] 1.56 mg/dL High 0.70-1.30 [facility] Comment on above: Performed By: #### L [id number] #### [facility] ([facility]) [address] [place] [address] GLOMERULAR FILTRATION RATE ML/MIN/1.73 SQ M.PREDICTED 47.2 mL/min/1.73m*2 Low >60.0 [facility] Comment on above: Result Comment: The [facility]???s estimated glomerular filtration rate (eGFR) will no [...] individuals. Performed By: #### L [id number] #### [facility] ([facility]) [address] [place] [address] Glucose [Mass/Vol] 166 mg/dL High 70-100 [facility] Comment on above: Performed By: #### L [id number] #### [facility] [address] [place] [address] Potassium [Moles/Vol] 4.3 mmol/L Normal 3.5-5.1 [facility] Comment on above: Performed By: #### L [id number] #### [facility] ([facility]) [address] [place] [address] Sodium [Moles/Vol] 140 mmol/L Normal 136-145 [facility] Comment on above: Performed By: #### L [id number] #### [facility] ([facility]) [address] [place] [address] Urea nitrogen [Mass/Vol] 26 mg/dL High 7-25 [facility] Comment on above: Performed By: #### L [id number] #### [facility] ([facility]) [address] [place] [address] UREA NITROGEN/CREATININE (MASS RATIO) IN SER/PLAS 16.7 Normal [facility] Comment on above: Performed By: #### L [id number] #### [facility] ([facility]) [address] [place] [address] CBCon 09-27-2023 Erythrocyte distribution width (RBC) [Ratio] 14.4 % Normal 11.5-15.0 [facility] Comment on above: Performed By: #### L [id number] #### [facility] ([facility]) [address] [place] [address] ERYTHROCYTE MEAN CORPUSCULAR HEMOGLOBIN CONCENTRATION (G/DL) BY AUTOMATED 33.1 g/dL Normal 32.0-35.0 [facility] Comment on above: Performed By: #### L [id number] #### [facility] ([facility]) [address] [place] [address] Hematocrit (Bld) [Volume fraction] 46.2 % Normal 39.0-55.0 [facility] Comment on above: Performed By: #### L [id number] #### [facility] ([facility]) [address] [place] [address] Hemoglobin (Bld) [Mass/Vol] 15.3 g/dL Normal 13.0-17.0 [facility] Comment on above: Performed By: #### L [id number] #### [facility] ([facility]) [address] [place] [address] MCH (RBC) [Entitic mass] 28.7 pg Normal 27.0-33.0 [facility] Comment on above: Performed By: #### L [id number] #### [facility] ([facility]) [address] [place] [address] MCV (RBC) [Entitic vol] 86.7 fL Normal 82.0-98.0 [facility] Comment on above: Performed By: #### L [id number] #### [facility] ([facility]) [address] [place] [address] PLATELETS (10*3/UL) IN BLOOD AUTOMATED COUNT 158 10*3/uL Normal 150-400 [facility] Comment on above: Performed By: #### L [id number] #### [facility] ([facility]) [address] [place] [address] RBC (Bld) [#/Vol] 5.33 10*6/uL Normal 4.20-5.70 [facility] Comment on above: Performed By: #### L [id number] #### [facility] ([facility]) [address] [place] [address] WBC (Bld) [#/Vol] 7.95 10*3/uL Normal 4.00-10.60 [facility] Comment on above: Performed By: #### L [id number] #### [facility] ([facility]) [address] [place] [address] CONSULTon 09-27-2023 CONSULT Cardiology Consult N ote I personally saw and examined the patient on the same date of service as resident/fellow Dr henderson. I discussed the findings and therapeutic plan with the resident/fellow Dr henderson. I agree with the documentation, except for any edits/updates below. Teaching Physician's Revisions: None Patient presents with typical chest pain associated with elevated troponin consistent with non-ST elevation [place]. The patient has known history of coronary [...] will try to introduce Andrew Fierro MD, [facility] REASON FOR CONSULT Reason for Consult: nstemi SUBJECTIVE HPI: Lani Lizama is a 72 y/o male with a significant PMHx for HFpEF (NYHA class 3), coronary artery disease [s/p 5 vessel CABG (patient reports CABG performed in 1995), 7 stents with most recent cath in Dec 2022], DM2, hyperlipidemia, peripheral vascular disease, 3rd degree heart block (s/p BiV SCREW SUPERVISOR-D) that presented to outside hospital w/ c/o chest pain that radiated to left arm and jaw. Pain was described as centrally-located and pressure-like, and unrelieved by Nitroglycerin x3. Patient started on nitroglycerin drip which provided relief. Initial high sensitivity troponin was unremarkable, but repeat was elevated (2962). He was started on heparin and transferred to [facility] for further evaluation. We were consulted [...] artery stenosis, Coronary artery disease, Diabetes mellitus ([facility]), Hyperlipidemia, Hypertension, PVD (peripheral vascular disease) ([facility]), and Third degree heart block ([facility]). Surgical History He has a past surgical [...] insulin dete (more content not included)... Normal [facility] HPon 09-27-2023 HP H&P reviewed. The jaron mark was interviewed and examined. 72 y/o male with a significant PMHx for HFpEF (NYHA class 3), coronary artery disease [s/p 5 vessel CABG (patient reports CABG performed in 1995), 7 stents with most recent cath in Dec 2022 with patent grafts x4], DM2, hyperlipidemia, peripheral vascular disease, 3rd degree heart block (s/p BiV SCREW SUPERVISOR-D) that presented to outside hospital w/ c/o chest pain found to have NSTEM (trop peak at 4.2) Will proceed with coronary and grafts angiogram for further assessment. Procedure's details, risks and benefits discussed with the patient and he's agreeable. [facility] LIPID PANELon 09-27-2023 CHOL/HDL 3.5 mg/dL [facility] Comment on above: Performed By: #### L [id number] #### [facility] ([facility]) [address] [place] [address] Cholesterol [Mass/Vol] 108 mg/dL Low 120-200 [facility] Comment on above: Performed By: #### L [id number] #### [facility] ([facility]) [address] [place] [address] Magnesium [Mass/Vol] 148 mg/dL Normal 40-149 [facility] Comment on above: Result Comment: TRIG LYCERIDE REFERENCE RANGE: 20 YEARS AND OLDER CARDIOVASCULAR RISK LESS THAN 150 mg/dL LOW RISK 150 TO 199 mg/dL BORDERLINE RISK 200 mg/dL AND GREATER HIGH RISK Performed By: #### L [id number] #### [facility] ([facility]) [address] [place] [address] Magnesium [Mass/Vol] 47 mg/dL Normal 0-160 [facility] Comment on above: Performed By: #### L [id number] #### [facility] ([facility]) [address] [place] [address] Magnesium [Mass/Vol] 31 mg/dL Normal 23-92 [facility] Comment on above: Performed By: #### L [id number] #### [facility] ([facility]) [address] [place] [address] NON HDL CHOL. (LDL+VLDL) 77 Normal [facility] Comment on above: Performed By: #### L [id number] #### [facility] ([facility]) [address] [place] [address] TOTAL VLDL-C 30 mg/dL Normal 0-40 [facility] Comment on above: Performed By: #### L [id number] #### [facility] ([facility]) [address] [place] [address] POCT GLUCOSE METER UNSOLICIT ED RESULTSon 09-27-2023 Glucose [Mass/Vol] 299 mg/dL High 70-105 [facility] Comment on above: Order Comment: Waive d Testing in the ED is performed under the ED CLIA certificate #[id number]. Result Comment: roberto macias Performed By: #### L [id number] #### [facility] ([facility]) [address] [place] [address] Glucose [Mass/Vol] 140 mg/dL High 70-105 [facility] Comment on above: Order Comment: Waive d Testing in the ED is performed under the ED CLIA certificate #[id number]. Result Comment: [email or web address] [email or web address] Performed By: #### L [id number] #### [facility] ([facility]) [address] [place] [address] Glucose [Mass/Vol] 193 mg/dL High 70-105 [facility] Comment on above: Order Comment: Waive d Testing in the ED is performed under the ED CLIA certificate #[id number]. Result Comment: martin solano Performed By: #### L [id number] #### [facility] ([facility]) [address] [place] [address] Glucose [Mass/Vol] 184 mg/dL High 70-105 [facility] Comment on above: Order Comment: Waive d Testing in the ED is performed under the ED CLIA certificate #[id number]. Result Comment: martin solano Performed By: #### L [id number] #### [facility] ([facility]) [address] [place] [address] TROPONIN Ion 09-27-2023 Troponin I.cardiac [Mass/Vol] 3.05 ng/mL Critically high 0.00-0.04 [facility] Comment on above: Result Comment: M-OR EVIOUS CRITICAL RESULT Previous result verified on 09/27/2023 0117 on specimen/case [id number] called with component Troponin I for procedure Troponin I with value 3.51 ng/mL. Performed By: #### L [id number] #### [facility] ([facility]) [address] [place] [address] 30on 09-26-2023 30 The patient is Moder ately Stable - Low risk of patient condition declining or worsening The patient's goals for the shift include Comfort/Rest The clinical goals for the shift include stable vital signs Normal [facility] ANTI-XA (HEPARIN LEVEL)on HEPARIN UNFRACTIONATED (U/ML) IN PPP BY CHROMOGENIC METHOD 0.82 IU/mL High 0.3-0.7 [facility] Comment on above: Order Comment: Check anti-Xa level every 6 hours while on heparin infusion, or per protocol. Result Comment: Rhona roxaban and Apixaban will interfere with the anti Xa assay used to monitor UFH and LMWH. Performed By: #### L [id number] #### [facility] ([facility]) [address] [place] [address] APTTon 09-26-2023 ACTIVATED PARTIAL THROMBOPLASTIN TIME IN PPP BY COAGULATION ASSAY 34.7 Seconds Normal 25.0-35.0 [facility] Comment on above: Order Comment: Basel ine aPTT before initiating heparin infusion. Result Comment: Clin ical significance of the APTT is questionable in the presence of heparin. Performed By: #### L [id number] #### [facility] ([facility]) [address] [place] [address] Activated partial thrombopla stin time (aPTT) in platelet poor plasma by coagulation aon 09-26-2023 aPTT Coag (PPP) [Time] 28.8 s 22.3-36.2 [facility] Basophils Auto (Bld) [#/Vol] on 09-26-2023 Basophils (Bld) [#/Vol] 0.1 10 3/uL 0.0-0.1 [facility] Basophils/100 WBC Auto (Bld) on 09-26-2023 Basophils/100 WBC (Bld) 0.6 % 0.2-2.0 [facility] CBCon 09-26-2023 Erythrocyte distribution width (RBC) [Ratio] 14.3 % Normal 11.5-15.0 [facility] Comment on above: Performed By: #### L [id number] #### [facility] ([facility]) [address] [place] [address] ERYTHROCYTE MEAN CORPUSCULAR HEMOGLOBIN CONCENTRATION (G/DL) BY AUTOMATED 33.1 g/dL Normal 32.0-35.0 [facility] Comment on above: Performed By: #### L [id number] #### [facility] ([facility]) [address] [place] [address] Hematocrit (Bld) [Volume fraction] 48.7 % Normal 39.0-55.0 [facility] Comment on above: Performed By: #### L [id number] #### [facility] ([facility]) [address] [place] [address] Hemoglobin (Bld) [Mass/Vol] 16.1 g/dL Normal 13.0-17.0 [facility] Comment on above: Performed By: #### L [id number] #### [facility] ([facility]) [address] [place] [address] MCH (RBC) [Entitic mass] 28.8 pg Normal 27.0-33.0 [facility] Comment on above: Performed By: #### L [id number] #### [facility] ([facility]) [address] [place] [address] MCV (RBC) [Entitic vol] 87.0 fL Normal 82.0-98.0 [facility] Comment on above: Performed By: #### L [id number] #### [facility] ([facility]) [address] [place] [address] PLATELETS (10*3/UL) IN BLOOD AUTOMATED COUNT 170 10*3/uL Normal 150-400 [facility] Comment on above: Performed By: #### L [id number] #### [facility] ([facility]) [address] [place] [address] RBC (Bld) [#/Vol] 5.60 10*6/uL Normal 4.20-5.70 [facility] Comment on above: Performed By: #### L [id number] #### [facility] ([facility]) [address] [place] [address] WBC (Bld) [#/Vol] 7.75 10*3/uL Normal 4.00-10.60 [facility] Comment on above: Performed By: #### L [id number] #### [facility] ([facility]) [address] [place] [address] COMPREHENSIVE METABOLIC PANE Mike 09-26-2023 Albumin [Mass/Vol] 4.3 g/dL Normal 3.5-5.7 [facility] Comment on above: Performed By: #### L [id number] #### [facility] ([facility]) [address] [place] [address] ALP [Catalytic activity/Vol] 100 U/L Normal 34-104 [facility] Comment on above: Performed By: #### L [id number] #### [facility] ([facility]) [address] [place] [address] ALT [Catalytic activity/Vol] 20 U/L Normal 7-52 [facility] Comment on above: Performed By: #### L [id number] #### [facility] ([facility]) [address] [place] [address] Anion gap [Moles/Vol] 15 mmol/L Normal 7-20 [facility] Comment on above: Performed By: #### L [id number] #### [facility] ([facility]) [address] [place] [address] AST [Catalytic activity/Vol] 50 U/L High 13-39 [facility] Comment on above: Performed By: #### L [id number] #### [facility] ([facility]) [address] [place] [address] Bilirubin [Mass/Vol] 1.1 mg/dL High 0.3-1.0 [facility] Comment on above: Performed By: #### L [id number] #### [facility] ([facility]) [address] [place] [address] Calcium [Mass/Vol] 9.4 mg/dL Normal 8.6-10.3 [facility] Comment on above: Performed By: #### L [id number] #### [facility] ([facility]) [address] [place] [address] Chloride [Moles/Vol] 104 mmol/L Normal 98-107 [facility] Comment on above: Performed By: #### L [id number] #### [facility] ([facility]) [address] [place] [address] CO2 [Moles/Vol] 26 mmol/L Normal 21-31 [facility] Comment on above: Performed By: #### L [id number] #### [facility] ([facility]) [address] [place] [address] Creatinine [Mass/Vol] 1.45 mg/dL High 0.70-1.30 [facility] Comment on above: Performed By: #### L [id number] #### [facility] ([facility]) [address] [place] [address] GLOMERULAR FILTRATION RATE ML/MIN/1.73 SQ M.PREDICTED 51.5 mL/min/1.73m*2 Low >60.0 [facility] Comment on above: Result Comment: [facility]???s estimated glomerular filtration rate (eGFR) will no [...] individuals. Performed By: #### L [id number] #### [facility] ([facility]) [address] [place] [address] Glucose [Mass/Vol] 141 mg/dL High 70-100 [facility] Comment on above: Performed By: #### L [id number] #### [facility] ([facility]) [address] [place] [address] Potassium [Moles/Vol] 4.2 mmol/L Normal 3.5-5.1 [facility] Comment on above: Performed By: #### L [id number] #### [facility] ([facility]) [address] [place] [address] Protein [Mass/Vol] 7.4 g/dL Normal 6.0-8.3 [facility] Comment on above: Performed By: #### L [id number] #### [facility] ([facility]) [address] [place] [address] Sodium [Moles/Vol] 141 mmol/L Normal 136-145 [facility] Comment on above: Performed By: #### L [id number] #### [facility] [address] [place] [address] Urea nitrogen [Mass/Vol] 24 mg/dL Normal 7-25 [facility] Comment on above: Performed By: #### L [id number] #### [facility] ([facility]) [address] [place] [address] UREA NITROGEN/CREATININE (MASS RATIO) IN SER/PLAS 16.6 Normal [facility] Comment on above: Performed By: #### L [id number] #### [facility] ([facility]) [address] [place] [address] Eosinophils/100 WBC Auto (Bl d)on 09-26-2023 Eosinophils/100 WBC (Bld) 2.4 % 0.9-7.0 [facility] Erythrocyte distribution wid th Auto (RBC) [Ratio]on 09-26-2023 Erythrocyte distribution width (RBC) [Ratio] 14.3 % 11.0-15.0 [facility] Estimated glomerular filtrat ion rate (GFR) non- Americanon 09-26-2023 GFR/1.73 sq M.predicted among non-blacks MDRD (S/P/Bld) [Vol rate/Area] 39 mL/min/{1.73_m2} Low >=60 [facility] Globulin Calc (S) [Mass/Vol] on 09-26-2023 Globulin (S) [Mass/Vol] 4.0 g/dL [facility] HPon 09-26-2023 HP History Of Present Illness Lani Lizama is a 72 y.o. male presenting with patient is a 72-year-old gentleman with history of coronary atherosclerosisChest pain. 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 Patient woke up with chest pain around [...] on heparin and was transferred to [facility] for further cares. Creatinine was 1.7. [...] (CMS/HCC), Hyperlipidemia, Hypertension, PVD (peripheral vascular disease) ([facility]), and Third degree heart block ([facility]). Surgical History He has a past surgical [...] obtained and is negative except per the [facility] Last Recorded Vitals Visit Vitals BP 134/78 (BP Location: Right arm, Patient Position: Sitting) Pulse 83 Temp 36.7 ???C (98.1 ???F) (Temporal) Resp 19 Ht 1.702 m (5' 7 ) Wt 79.9 kg (176 lb 3.2 oz) BMI 27.60 kg/m??? Smoking Status Former BSA 1.94 m??? GENERAL: The patient is well developed and nontoxic (more content not included)... Normal [facility] Hematocrit Auto (Bld) [Volum e fraction]on 09-26-2023 Hematocrit (Bld) [Volume fraction] 49.4 % 42.0-54.0 [facility] Hemoglobin [Mass/volume] in Bloodon 09-26-2023 Hemoglobin (Bld) [Mass/Vol] 16.0 g/dL 14.0-18.0 [facility] INR in Platelet poor plasma by Coagulation assayon 09-26-2023 INR Coag (PPP) [Relative time] 0.99 {INR} [facility] Comment on above: DESIRED INR:2.0-3.0 CONDITIONS NOT LISTED BELOW2.5-3.5 FOR PROSTHETIC HEART VALVE REPLACEMENT2.5-3.5 RECURRENT THROMBOSIS LACTIC ACID WITH 4 HOUR REFL EXon 09-26-2023 LACTATE (MMOL/L) IN SER/PLAS 1.1 mmol/L Normal 0.5-2.2 [facility] Comment on above: Performed By: #### L [id number] #### [facility] (BEAKER) [address] [place] [address] Laboratory - Chemistry and C hemistry - challengeon 09-26-2023 Albumin [Mass/Vol] 4.1 g/dL 3.4-5.0 [facility] ALP [Catalytic activity/Vol] 146 U/L High 46-116 [facility] ALT [Catalytic activity/Vol] 32 U/L 16-63 [facility] AST [Catalytic activity/Vol] 26 U/L 15-37 [facility] Bilirubin [Mass/Vol] 0.7 mg/dL 0.2-1.0 [facility] Calcium [Mass/Vol] 9.2 mg/dL 8.5-10.1 [facility] Chloride [Moles/Vol] 104 mmol/L 98-107 [facility] CO2 [Moles/Vol] 24.8 mmol/L 21.0-32.0 [facility] Creatinine [Mass/Vol] 1.72 mg/dL High 0.70-1.30 [facility] GFR/1.73 sq M.predicted MDRD (S/P/Bld) [Vol rate/Area] 48 mL/min/{1.73_m2} Low >=60 [facility] Glucose [Mass/Vol] 206 mg/dL High 74-106 [facility] Potassium [Moles/Vol] 4.2 mmol/L 3.5-5.1 [facility] Protein [Mass/Vol] 8.1 g/dL 6.4-8.2 [facility] Sodium [Moles/Vol] 141 mmol/L 136-145 [facility] Urea nitrogen [Mass/Vol] 26.0 mg/dL High 7.0-18.0 [facility] Urea nitrogen/Creatinine [Mass ratio] 15.1 mg/mg [facility] Laboratory - Hematology and Cell countson 09-26-2023 Immature granulocytes/100 WBC (Bld) 0.3 % 0.0-0.5 [facility] Leukocytes [#/volume] correc soraya for nucleated erythrocytes in Blood by Automated counon 09-26-2023 WBC corrected for nucl RBC Auto (Bld) [#/Vol] 10.5 10 3/uL 4.0-11.0 [facility] Lymphocytes Auto (Bld) [#/Vo l]on 09-26-2023 Lymphocytes (Bld) [#/Vol] 2.0 10 3/uL 1.2-3.8 [facility] Lymphocytes/100 WBC Auto (Bl d)on 09-26-2023 Lymphocytes/100 WBC (Bld) 18.7 % Low 20.5-60.0 [facility] MCH Auto (RBC) [Entitic mass ]on 09-26-2023 MCH (RBC) [Entitic mass] 28.4 pg 25.9-34.0 [facility] MCHC Auto (RBC) [Mass/Vol]on 09-26-2023 MCHC (RBC) [Mass/Vol] 32.4 g/dL 29.9-35.2 [facility] MCV Auto (RBC) [Entitic vol] on 09-26-2023 MCV (RBC) [Entitic vol] 87.7 fL 80.0-94.0 [facility] Monocytes Auto (Bld) [#/Vol] on 09-26-2023 Monocytes (Bld) [#/Vol] 0.8 10 3/uL 0.3-0.8 [facility] Monocytes/100 WBC Auto (Bld) on 09-26-2023 Monocytes/100 WBC (Bld) 7.3 % 1.7-12.0 [facility] Neutrophils Auto (Bld) [#/Vo l]on 09-26-2023 Neutrophils (Bld) [#/Vol] 7.4 10 3/uL High 1.4-6.5 [facility] Neutrophils/100 WBC Auto (Bl d)on 09-26-2023 Neutrophils/100 WBC (Bld) 70.7 % 43.0-75.0 [facility] No Panel Informationon 09-25 Troponin I High Sensitivity 8614.2 pg/mL High 4.0-76.1 [facility] Comment on above: RESULTS CALLED [...] Eosinophils # (Auto) 0.3 10 3/uL 0.0-0.7 [facility] Immature Granulocyte # (Auto) 0.03 10 3/uL 0.00-0.03 [facility] POCT GLUCOSE METER UNSOLICIT ED RESULTSon 09-26-2023 Glucose [Mass/Vol] 286 mg/dL High 70-105 [facility] Comment on above: Order Comment: Waive d Testing in the ED is performed under the ED CLIA certificate #[id number]. Result Comment: roberto macias Performed By: #### L [id number] #### [facility] ([facility]AKER) [address] [place] [address] Glucose [Mass/Vol] 151 mg/dL High 70-105 [facility] Comment on above: Order Comment: Waive d Testing in the ED is performed under the ED CLIA certificate #[id number]. Result Comment: [email or web address] [email or web address] Performed By: #### L [id number] #### [facility] (BEAKER) [address] [place] [address] Platelet mean volume Auto (B ld) [Entitic vol]on 09-26-2023 Platelet mean volume (Bld) [Entitic vol] 10.0 fL 9.5-13.5 [facility] Platelets Auto (Bld) [#/Vol] on 09-26-2023 Platelets (Bld) [#/Vol] 194 10 3/uL 150-450 [facility] Prothrombin time (PT)on 08-31 PT Coag (PPP) [Time] 10.5 s 9.0-11.6 [facility] RBC Auto (Bld) [#/Vol]on RBC (Bld) [#/Vol] 5.63 10 6/uL 4.70-6.10 [facility] Serum or plasma albumin/glob ulin mass ratioon 09-26-2023 Albumin/Globulin [Mass ratio] 1.0 {ratio} [facility] Serum or plasma anion gap de terminationon 09-26-2023 Anion gap [Moles/Vol] 16.4 mmol/L [facility] TROPONIN Ion 09-26-2023 Troponin I.cardiac [Mass/Vol] 3.51 ng/mL Critically high 0.00-0.04 [facility] Comment on above: Result Comment: M-OR EVIOUS CRITICAL RESULT Previous result verified on 09/26/2023 2309 on specimen/case [id number] called with component Troponin I for procedure Troponin I with value 3.41 ng/mL. Performed By: #### L [id number] #### [facility] (BEAKER) [address] [place] [address] Troponin I.cardiac [Mass/Vol] 3.41 ng/mL Critically high 0.00-0.04 [facility] Comment on above: Result Comment: M-OR EVIOUS CRITICAL RESULT Previous result verified on 09/26/2023 1926 on specimen/case [id number] called with component Troponin I for procedure Troponin I with value 4.22 ng/mL. Performed By: #### L [id number] #### [facility] ([employer]) [address] [place] [address] Troponin I.cardiac [Mass/Vol] 4.22 ng/mL Critically high 0.00-0.04 [facility] Comment on above: Result Comment: ADILIA BRYANT INITIAL CRITICAL HIGH; RESPUN AND RETESTED Performed By: #### L [id number] #### [facility] (BEAKER) [address] [place] [address] Office Visiton 09-09-2023 Follow-up visit [id number] Lani Lizama 1950 M Date Provider Department Center 09/09/2023 271-PINKY BISHOP CARD [facility] Family History Problem Relation Age of Onset Heart attack Mother Other Father Other Brother Heart attack Maternal Grandmother Heart attack Maternal Grandfather Family Status - Relation Status Age at Mother Father Brother Maternal Grandmother Maternal Grandfather Level of Service:78523 OR OFFICE/OUTPATIENT ESTABLISHED MOD MDM 30 MIN Normal [facility] No Panel Informationon 08-26 Prostate Specific Antigen Screen 1.37 ng/mL <=4.00 [facility] Erythrocyte distribution wid th Auto (RBC) [Ratio]on 06-24-2023 Erythrocyte distribution width (RBC) [Ratio] 14.6 % 11.0-15.0 [facility] Estimated glomerular filtrat ion rate (GFR) non- Americanon 06-24-2023 GFR/1.73 sq M.predicted among non-blacks MDRD (S/P/Bld) [Vol rate/Area] 38 mL/min/{1.73_m2} >=60 [facility] Hematocrit Auto (Bld) [Volum e fraction]on 06-24-2023 Hematocrit (Bld) [Volume fraction] 46.2 % 42.0-54.0 [facility] Hemoglobin [Mass/volume] in Bloodon 06-24-2023 Hemoglobin (Bld) [Mass/Vol] 14.5 g/dL 14.0-18.0 [facility] Laboratory - Chemistry and C hemistry - challengeon 06-24-2023 Albumin [Mass/Vol] 4.0 g/dL 3.4-5.0 [facility] Calcium [Mass/Vol] 9.2 mg/dL 8.5-10.1 [facility] Chloride [Moles/Vol] 106 mmol/L 98-107 [facility] CO2 [Moles/Vol] 25.4 mmol/L 21.0-32.0 [facility] Creatinine [Mass/Vol] 1.76 mg/dL 0.70-1.30 [facility] GFR/1.73 sq M.predicted MDRD (S/P/Bld) [Vol rate/Area] 47 mL/min/{1.73_m2} >=60 [facility] Glucose [Mass/Vol] 212 mg/dL 74-106 [facility] Magnesium [Mass/Vol] 2.1 mg/dL 1.8-2.4 [facility] Potassium [Moles/Vol] 4.5 mmol/L 3.5-5.1 [facility] Sodium [Moles/Vol] 142 mmol/L 136-145 [facility] Urate [Mass/Vol] 4.3 mg/dL 3.5-7.2 [facility] Urea nitrogen [Mass/Vol] 30.0 mg/dL 7.0-18.0 [facility] Urea nitrogen/Creatinine [Mass ratio] 17.0 mg/mg [facility] Laboratory - Urinalysison Protein (U) [Mass/Vol] 11.5 mg/dL <=11.9 [facility] Leukocytes [#/volume] correc soraya for nucleated erythrocytes in Blood by Automated counon 06-24-2023 WBC corrected for nucl RBC Auto (Bld) [#/Vol] 9.6 10 3/uL 4.0-11.0 [facility] MCH Auto (RBC) [Entitic mass ]on 06-24-2023 MCH (RBC) [Entitic mass] 28.5 pg 25.9-34.0 [facility] MCHC Auto (RBC) [Mass/Vol]on 06-24-2023 MCHC (RBC) [Mass/Vol] 31.4 g/dL 29.9-35.2 [facility] MCV Auto (RBC) [Entitic vol] on 06-24-2023 MCV (RBC) [Entitic vol] 90.8 fL 80.0-94.0 [facility] No Panel Informationon 06-23 25-Hydroxy Vitamin D Total 42.5 ng/mL [facility] Comment on above: <20 ng/mL Vit D defi cient20-<30 ng/mL Vit D [id number] ng/mL Vit D sufficient>100 ng/mL Potential Toxicity Parathyroid Hormone (Intact) 48 pg/mL 15-65 [facility] Comment on above: Performed at: - L [address] [id number] Director: Kwaku Park PhD, Phone: [phone] Phosphorus Level 3.6 mg/dL 2.6-4.7 [facility] Urine Random Creatinine 60.60 mg/dL 20.00-300. 00 [facility] Platelet mean volume Auto (B ld) [Entitic vol]on 06-24-2023 Platelet mean volume (Bld) [Entitic vol] 10.2 fL 9.5-13.5 [facility] Platelets Auto (Bld) [#/Vol] on 06-24-2023 Platelets (Bld) [#/Vol] 178 10 3/uL 150-450 [facility] RBC Auto (Bld) [#/Vol]on RBC (Bld) [#/Vol] 5.09 10 6/uL 4.70-6.10 [facility] Serum or plasma anion gap de terminationon 06-24-2023 Anion gap [Moles/Vol] 15.1 mmol/L [facility] Urine protein/creatinine rat ioon 06-24-2023 Protein/Creatinine (U) [Ratio] 0.19 [facility] HbA1c HPLC (Bld) [Mass fract ion]on 06-18-2023 HbA1c (Bld) [Mass fraction] 6.1 % [facility] No Panel Informationon 06-17 Bedside Glucose 150 [facility] Cholesterol in LDL Calc [Mas s/Vol]on 06-13-2023 Cholesterol in LDL [Mass/Vol] 29.0 mg/dL [facility] Comment on above: <100 mg/dl [id number] 0-129 mg/dl NEAR OR ABOVE [id number] mg/dl BORDERLINE [id number] mg/dl HIGH>190 mg/dl VERY HIGH Cholesterol in VLDL Calc [Ma ss/Vol]on 06-13-2023 Cholesterol in VLDL [Mass/Vol] 24.8 mg/dL [facility] Laboratory - Chemistry and C hemistry - challengeon 06-13-2023 Cholesterol [Mass/Vol] 87 mg/dL <=200 [facility] Cholesterol in HDL [Mass/Vol] 34 mg/dL 40-60 [facility] Comment on above: > or =60 mg/dl - LOW CARDIOVASCULAR RISK<40 mg/dl - HIGH CARDIOVASCULAR RISK Triglyceride [Mass/Vol] 124 mg/dL <=150 [facility] Serum or plasma total choles terol/high density lipoprotein (HDL) cholesterol mass yulia 06-13-2023 Cholesterol.total/Chol esterol in HDL [Mass ratio] 2.6 {ratio} [facility] Comment on above: 3.3 - 4.4 LOW RISK4. 4 - 7.1 AVERAGE RISK7.1 - 11.0 MODERATE RISK>11.0 HIGH RISK A1C HEMOGLOBINon 03-12-2023 HbA1c (Bld) [Mass fraction] 7.1 % [employer] Other Glucose - FINGER STICKon Glucose [Mass/Vol] 151 mg/dL [employer] Other HbA1c (Bld) [Mass fraction]o n 03-12-20[address] A[address]C [address] [employer] Other CT CHEST WO CONon 08-09-2022 CT [...] HAZEL SCHILLING Date: 2022-08-09 14:00 Normal [facility] A1C HEMOGLOBINon 06-26-2022 HbA1c (Bld) [Mass fraction] 7.4 % [employer] Other Glucose - FINGER STICKon Glucose [Mass/Vol] 267 mg/dL [employer] Other HbA1c (Bld) [Mass fraction]o n 06-26-2022 A1C HEMOGLOBIN [employer] Other PTH INTACTon 06-26-2022 PTH, Intact 37 pg/mL Normal 15-[address] [facility] Comment on above: Performed By: #### C MP, CMADM #### [facility] [address] [place] [address] Dr. Mirza Sadler FERRITINon 06-25-2022 Ferritin [Mass/Vol] 269.0 ng/mL Normal 26.0-388.0 [facility] Comment on above: Performed By: #### B LENGTH CONTROL TESTER #### [facility] [address] [address] [address] Mirza Sadler HEMOGRAM AND PLATELon 2022 Hematocrit (Bld) [Volume fraction] 44.7 % Normal 42.0-54.0 [facility] Comment on above: Performed By: #### P T, PTT #### [facility] [address] [place] [address] Dr. Mirza Sadler Hemoglobin (Bld) [Mass/Vol] 15.1 g/dL Normal 14.0-18.0 [facility] Comment on above: Performed By: #### P T, PTT #### [facility] [address] [place] [address] Dr. Mirza Sadler MCH (RBC) [Entitic mass] 30.0 pg Normal 25.9-34.[address] [facility] Comment on above: Performed By: #### P T, PTT #### [facility] [address] [place] [address] Dr. Mirza Sadler MCHC (RBC) [Mass/Vol] 33.8 g/dL Normal 29.9-35.[address] [facility] Comment on above: Performed By: #### P T, PTT #### [facility] [address] [place] [address] Dr. Mirza Sadler MCV (RBC) [Entitic vol] 88.9 fL Normal 80.0-94.0 [facility] Comment on above: Performed By: #### P T, PTT #### [facility] [address] [place] [address] Dr. Mirza Sadler PLT 199 103/ul Normal 150-[address] [facility] Comment on above: Performed By: #### P T, PTT #### [facility] [address] [place] [address] Dr. Mirza Sadler RBC 5.03 106/ul Normal 4.70-6.[address] [facility] Comment on above: Performed By: #### P T, PTT #### [facility] [address] [place] [address] Dr. Mirza Sadler WBC 8.7 103/ul Normal 4.0-11.[address] [facility] Comment on above: Performed By: #### P T, PTT #### [facility] [address] [place] [address] Dr. Mirza Sadler IRON AND TIBCon 06-25-2022 % SATURATION 28.6 % Normal [facility] Comment on above: Performed By: #### B LENGTH CONTROL TESTER #### [facility] [address] [address] [address] Mirza Sadler Iron [Mass/Vol] 82.0 ug/dL Normal 65.0-175.0 [facility] Comment on above: Performed By: #### B LENGTH CONTROL TESTER #### [facility] [address] [place] [address] Dr. Mirza Sadler TIBC DIRECT 287.0 ug/dL Normal 250.0-450. [address] [facility] Comment on above: Performed By: #### B LENGTH CONTROL TESTER #### [facility] [address] [place] [address] Dr. Mirza Sadler MAGNESIUMon 06-25-2022 Magnesium [Mass/Vol] 2.0 mg/dL Normal 1.8-2.[address] [facility] Comment on above: Performed By: #### B LENGTH CONTROL TESTER #### [facility] [address] [place] [address] Dr. Miraz Sadler RENAL FUNCTION PANELon 06-25 Albumin [Mass/Vol] 4.2 g/dL Normal 3.4-5.0 [facility] Comment on above: Performed By: #### B LENGTH CONTROL TESTER #### [facility] [address] [place] [address] Dr. Mirza Sadler Calcium [Mass/Vol] 9.3 mg/dL Normal 8.5-10.[address] [facility] Comment on above: Performed By: #### B LENGTH CONTROL TESTER #### [facility] [address] [place] [address] Dr. Mirza Sadler Chloride [Moles/Vol] 108 mmol/L Critically high 98-[address] [facility] Comment on above: Performed By: #### B LENGTH CONTROL TESTER #### [facility] [address] [address] [address] Mirza Sadler CO2 [Moles/Vol] 29.5 mmol/L Normal 21.0-32.0 [facility] Comment on above: Performed By: #### B LENGTH CONTROL TESTER #### [facility] [address] [place] [address] Dr. Mirza Sadler Creatinine [Mass/Vol] 1.87 mg/dL Critically high 0.70-1.30 [facility] Comment on above: Performed By: #### B LENGTH CONTROL TESTER #### [facility] [address] [address] [address] Mirza Sadler EGFR-AF GREEK 43 mL/min/1.73m2 Critically low >=60 [facility] Comment on above: Performed By: #### B LENGTH CONTROL TESTER #### [facility] [address] [address] [address] Mirza Sadler EGFR-NON AF GREEK 36 mL/min/1.73m2 Critically low >=60 [facility] Comment on above: Performed By: #### B LENGTH CONTROL TESTER #### [facility] [address] [address] [address] Mirza Sadler Glucose [Mass/Vol] 181 mg/dL Critically high 74-106 [facility] Comment on above: Performed By: #### B LENGTH CONTROL TESTER #### [facility] [address] [address] [address] Mirza Sadler Phosphate [Mass/Vol] 4.8 mg/dL Critically high 2.6-4.7 [facility] Comment on above: Performed By: #### B LENGTH CONTROL TESTER #### [facility] [address] [address] [address] Mirza Sadler Potassium [Moles/Vol] 4.8 mmol/L Normal 3.5-5.1 [facility] Comment on above: Performed By: #### B LENGTH CONTROL TESTER #### [facility] [address] [address] [address] Mirza Sadler Sodium [Moles/Vol] 146 mmol/L Critically high 136-145 [facility] Comment on above: Performed By: #### B LENGTH CONTROL TESTER #### [facility] [address] [address] [address] Mirza Sadler Urea nitrogen [Mass/Vol] 40.0 mg/dL Critically high 7.0-18.0 [facility] Comment on above: Performed By: #### B LENGTH CONTROL TESTER #### [facility] [address] [address] [address] Mirza Sadler UA RANDOM W/MICROSCOPICon BACTERIA NONE SEEN Normal NONE SEEN [facility] Comment on above: Performed By: #### H STROPN #### [facility] [address] [address] [address] Mirza Sadler Bilirubin Ql (U) Negative Normal NEGATIVE [facility] Comment on above: Performed By: #### H STROPN #### [facility] [address] [place] [address] Dr. Mirza Sadler CAST NONE SEEN Normal NONE SEEN [facility] Comment on above: Performed By: #### H STROPN #### [facility] [address] [place] [address] Dr. Mirza Sadler Clarity (U) CLEAR Normal CLEAR [facility] Comment on above: Performed By: #### H STROPN #### [facility] [address] [place] [address] Dr. Mirza Sadler Color (U) LT. YELLOW Normal YELLOW [facility] Comment on above: Performed By: #### H STROPN #### [facility] [address] [place] [address] Dr. Mirza Sadler Crystals LM Nom (Urine sed) NONE SEEN Normal NONE SEEN [facility] Comment on above: Performed By: #### H STROPN #### [facility] [address] [place] [address] Dr. Mirza Sadler Epithelial cells LM Ql (Urine sed) FEW Abnormal NONE SEEN /RARE [facility] Comment on above: Performed By: #### H STROPN #### [facility] [address] [place] [address] Dr. Mirza Sadler Glucose Ql (U) 500 mg/dl Abnormal NEGATIVE [facility] Comment on above: Performed By: #### H STROPN #### [facility] [address] [place] [address] Dr. Mirza Sadler Hemoglobin Ql (U) Negative Normal NEGATIVE [facility] Comment on above: Performed By: #### H STROPN #### [facility] [address] [place] [address] Dr. Mirza Sadler Ketones Ql (U) Negative Normal NEGATIVE [facility] Comment on above: Performed By: #### H STROPN #### [facility] [address] [place] [address] Dr. Mirza Sadler LEUKOCYTES Negative Normal NEGATIVE [facility] Comment on above: Performed By: #### H STROPN #### [facility] [address] [place] [address] Dr. Mirza Sadler MUCOUS NONE SEEN Normal NONE SEEN [facility] Comment on above: Performed By: #### H STROPN #### [facility] [address] [place] [address] Dr. Mirza Sadler Nitrite Ql (U) Negative Normal NEGATIVE [facility] Comment on above: Performed By: #### H STROPN #### [facility] [address] [place] [address] Dr. Mirza Sadler pH (U) 5.5 [pH] Normal 5-9 [facility] Comment on above: Performed By: #### H STROPN #### [facility] [address] [place] [address] Dr. Mirza Sadler RBC 0-2 Normal 0-2 [facility] Comment on above: Performed By: #### H STROPN #### [facility] [address] [place] [address] Dr. Mirza Sadler SPEC GRAVITY 1.015 Normal 1.005-<=1. 025 [facility] Comment on above: Performed By: #### H STROPN #### [facility] [address] [place] [address] Dr. Mirza Sadler UA PROTEIN Negative Normal NEGATIVE/ TRACE [facility] Comment on above: Performed By: #### H STROPN #### [facility] [address] [place] [address] Dr. Mirza Sadler Urobilinogen Qn (U) 0.2 {Luisito'U}/dL Normal 0.2 - 1. 0 [facility] Comment on above: Performed By: #### H STROPN #### [facility] [address] [place] [address] Dr. Mirza Sadler WBC NONE SEEN Normal NONE SEEN [facility] Comment on above: Performed By: #### H STROPN #### [facility] [address] [place] [address] Dr. Mirza Sadler URIC ACID SERUMon 06-25-2022 Urate [Mass/Vol] 6.1 mg/dL Normal 3.5-7.2 [facility] Comment on above: Performed By: #### B LENGTH CONTROL TESTER #### [facility] [address] [place] [address] Dr. Mirza Sadler URINE T PROTEIN CREAT RATIOo n 06-25-2022 Protein (U) [Mass/Vol] 9.7 mg/dL Normal <=12.0 [facility] Comment on above: Performed By: #### C TANIA, CMADM #### [facility] [address] [place] [address] Dr. Mirza Sadler UR PROT CREAT RAT 0.14 Normal [facility] Comment on above: Performed By: #### C TANIA, CMADM #### [facility] [address] [place] [address] Dr. Mirza Sadler URINE CREAT 71.45 mg/dL Normal 20.00-300. 00 [facility] Comment on above: Performed By: #### C TANIA, CMADM #### [facility] [address] [place] [address] Dr. Mirza Sadler VITAMIN D 25 OHon 06-25-2022 VIT D 25-OH 44.7 ng/mL Normal [facility] Comment on above: Performed By: #### E RUR #### [facility] [address] [place] [address] Dr. Mirza Sadler VIT D RANGES SEE BELOW Normal [facility] Comment on above: Result Comment: <20 ng/mL Vit D deficient 20 - <30 ng/mL Vit D insufficient 30 - 100 ng/mL Vit D sufficient >100 ng/mL Potential Toxicity Performed By: #### E RUR #### [facility] [address] [place] [address] Dr. Mirza Sadler LIPID PROFILEon 06-18-2022 CHOL-HDL RATIO NORM SEE BELOW Normal [facility] [facility] Comment on above: Result Comment: 3.3 - 4.4 LOW RISK 4.4 - 7.1 AVERAGE RISK 7.1 - 11.0 MODERATE RISK >11.0 HIGH RISK Performed By: #### H STROPN #### [facility] [address] [address] [address] Mirza Sadler Cholesterol [Mass/Vol] 136 mg/dL Normal <=200 [facility] Comment on above: Performed By: #### H STROPN #### [facility] [address] [address] [address] Mirza Sadler Cholesterol in HDL [Mass/Vol] 38 mg/dL Critically low 40-60 [facility] Comment on above: Performed By: #### H STROPN #### [facility] [address] [address] [address] Mirza Sadler Cholesterol in LDL [Mass/Vol] 69.6 mg/dL Normal [facility] Comment on above: Performed By: #### H STROPN #### [facility] [address] [address] [address] Mirza Sadler Cholesterol.total/Chol esterol in HDL [Mass ratio] 3.6 {ratio} Normal [facility] Comment on above: Performed By: #### H STROPN #### [facility] [address] [address] [address] Mirza Sadler HDL NORMAL > or = 60 mg/dl - LO W CARDIOVASCULAR RISK <40 mg/dl - HIGH CARDIOVASCULAR RISK Normal [facility] Comment on above: Performed By: #### H STROPN #### [facility] [address] [address] [address] Mirza Sadler LDL CALC NORMAL SEE BELOW Normal [facility] [place] Comment on above: Result Comment: <100 mg/dl OPTIMAL 100 - 129 mg/dl NEAR OR ABOVE OPTIMAL 130 - 159 mg/dl BORDERLINE HIGH 160 - 189 mg/dl HIGH >190 mg/dl VERY HIGH Performed By: #### H STROPN #### [facility] [address] [address] [address] Mirza Sadler Triglyceride [Mass/Vol] 142 mg/dL Normal <=150 [facility] Comment on above: Performed By: #### H STROPN #### [facility] [address] [address] [address] Mirza Sadler VLDL CALC 28.4 mg/dL Normal [facility] Comment on above: Performed By: #### H STROPN #### [facility] [address] [address] [address] CHEST WO CONon [...] by: HIGINIO FLANAGAN Date: 2022-06-05 16:58 Normal [facility] CT CHEST WO CON Skin Scan Other PROF CHEM 8 (BAS METB)on Anion gap [Moles/Vol] 10.2 mmol/L Normal [facility] Comment on above: Performed By: #### B LENGTH CONTROL TESTER #### [facility] [address] [address] [address] Mirza Sadler Calcium [Mass/Vol] 8.9 mg/dL Normal 8.5-10.1 [facility] Comment on above: Performed By: #### B LENGTH CONTROL TESTER #### [facility] [address] [address] [address] Mirza Sadler Chloride [Moles/Vol] 101 mmol/L Normal 98-107 [facility] Comment on above: Performed By: #### B LENGTH CONTROL TESTER #### [facility] [address] [address] [address] Mirza Sadler CO2 [Moles/Vol] 31.2 mmol/L Normal 21.0-32.0 [facility] Comment on above: Performed By: #### B LENGTH CONTROL TESTER #### [facility] [address] [address] [address] Mirza Sadler Creatinine [Mass/Vol] 1.91 mg/dL Critically high 0.70-1.30 [facility] Comment on above: Performed By: #### B LENGTH CONTROL TESTER #### [facility] [address] [address] [address] Mirza Sadler EGFR-AF GREEK 42 mL/min/1.73m2 Critically low >=60 [facility] Comment on above: Performed By: #### B LENGTH CONTROL TESTER #### [facility] [address] [address] [address] Mirza Sadler EGFR-NON AF GREEK 35 mL/min/1.73m2 Critically low >=60 [facility] Comment on above: Performed By: #### B LENGTH CONTROL TESTER #### [facility] [address] [address] [address] Mirza Sadler Glucose [Mass/Vol] 242 mg/dL Critically high 74-106 [facility] Comment on above: Performed By: #### B LENGTH CONTROL TESTER #### [facility] [address] [address] [address] Mirza Sadler Potassium [Moles/Vol] 4.4 mmol/L Normal 3.5-5.1 [facility] Comment on above: Performed By: #### B LENGTH CONTROL TESTER #### [facility] [address] [address] [address] Mirza Sadler Sodium [Moles/Vol] 138 mmol/L Normal 136-145 [facility] Comment on above: Performed By: #### B LENGTH CONTROL TESTER #### [facility] [address] [address] [address] Mirza Sadler Urea nitrogen [Mass/Vol] 33.0 mg/dL Critically high 7.0-18.0 [facility] Comment on above: Performed By: #### B LENGTH CONTROL TESTER #### [facility] [address] [address] [address] Mirza Sadler Urea nitrogen/Creatinine [Mass ratio] 17.3 mg/mg Normal [facility] Comment on above: Performed By: #### B LENGTH CONTROL TESTER #### [facility] [address] [place] [address] Dr. Mirza Sadler PROF CHEM 8 (BAS METB)on Anion gap [Moles/Vol] 10.7 mmol/L Normal [facility] Comment on above: Performed By: #### P T, PTT #### [facility] [address] [place] [address] Dr. Mirza Sadler Calcium [Mass/Vol] 8.9 mg/dL Normal 8.5-10.1 [facility] Comment on above: Performed By: #### P T, PTT #### [facility] [address] [address] [address] Mirza Sadler Chloride [Moles/Vol] 104 mmol/L Normal 98-107 [facility] Comment on above: Performed By: #### P T, PTT #### [facility] [address] [place] [address] Dr. Mirza Sadler CO2 [Moles/Vol] 29.4 mmol/L Normal 21.0-32.0 [facility] Comment on above: Performed By: #### P T, PTT #### [facility] [address] [place] [address] Dr. Mirza Sadler Creatinine [Mass/Vol] 1.75 mg/dL Critically high 0.70-1.30 [facility] Comment on above: Performed By: #### P T, PTT #### [facility] [address] [place] [address] Dr. Mirza Sadler EGFR-AF GREEK 47 mL/min/1.73m2 Critically low >=60 [facility] Comment on above: Performed By: #### P T, PTT #### [facility] [address] [address] [address] Mirza Sadler EGFR-NON AF GREEK 39 mL/min/1.73m2 Critically low >=60 [facility] Comment on above: Performed By: #### P T, PTT #### [facility] [address] [address] [address] Mirza Sadler Glucose [Mass/Vol] 191 mg/dL Critically high 74-106 [facility] Comment on above: Performed By: #### P T, PTT #### [facility] [address] [address] [address] Mirza Sadler Potassium [Moles/Vol] 4.1 mmol/L Normal 3.5-5.1 [facility] Comment on above: Performed By: #### P T, PTT #### [facility] [address] [address] [address] Mirza Sadler Sodium [Moles/Vol] 140 mmol/L Normal 136-145 [facility] Comment on above: Performed By: #### P T, PTT #### [facility] [address] [address] [address] Mirza Sadler Urea nitrogen [Mass/Vol] 31.0 mg/dL Critically high 7.0-18.0 [facility] Comment on above: Performed By: #### P T, PTT #### [facility] [address] [address] [address] Mirza Sadler Urea nitrogen/Creatinine [Mass ratio] 17.7 mg/mg Normal [facility] Comment on above: Performed By: #### P T, PTT #### [facility] [address] [address] [address] Mirza Sadler XR CHEST 2 Von [...] by: HIGINIO FLANAGAN Date: 2022-03-22 16:12 Normal [facility] A1C HEMOGLOBINon 03-20-2022 HbA1c (Bld) [Mass fraction] 6.7 % [employer] Other Glucose - FINGER STICKon Glucose [Mass/Vol] 193 mg/dL [employer] Other HbA1c (Bld) [Mass fraction]o n 03-20-2022 A1C HEMOGLOBIN [employer] Other BNPon 03-13-2022 Natriuretic peptide B (Bld) [Mass/Vol] 4825.0 pg/mL Critically high <=900.0 [facility] Comment on above: Performed By: #### E RUR #### [facility] [address] [place] [address] Dr. Mirza Sadler CBC AUTO DIFFon 03-13-2022 BASO # 0.0 103/ul Normal 0.0-0.1 [facility] Comment on above: Performed By: #### E RUR #### [facility] [address] [address] [address] Mirza Sadler Basophils/100 WBC (Bld) 0.6 % Normal 0.2-2.[address] [facility] Comment on above: Performed By: #### E RUR #### [facility] [address] [address] [address] Mirza Sadler EO # 0.1 103/ul Normal 0.0-0.[address] [facility] Comment on above: Performed By: #### E RUR #### [facility] [address] [address] [address] Mirza Sadler Eosinophils/100 WBC (Bld) 1.8 % Normal 0.9-7.0 [facility] Comment on above: Performed By: #### E RUR #### [facility] [address] [place] [address] Dr. Mirza Sadler Erythrocyte distribution width (RBC) [Ratio] 14.4 % Normal 11.0-15.0 [facility] Comment on above: Performed By: #### E RUR #### [facility] [address] [place] [address] Dr. Mirza Sadler Hematocrit (Bld) [Volume fraction] 36.1 % Critically low 42.0-54.0 [facility] Comment on above: Performed By: #### E RUR #### [facility] [address] [place] [address] Dr. Mirza Sadler Hemoglobin (Bld) [Mass/Vol] 11.9 g/dL Critically low 14.0-18.0 [facility] Comment on above: Performed By: #### E RUR #### [facility] [address] [place] [address] Dr. Mirza Sadler IG # 0.02 10e3/ul Normal 0.00-0.03 [facility] Comment on above: Performed By: #### E RUR #### [facility] [address] [place] [address] Dr. Mirza Sadler IG % 0.3 % Normal 0.0-0.5 [facility] Comment on above: Performed By: #### E RUR #### [facility] [address] [place] [address] Dr. Mirza Sadler LYMPH # 1.5 103/ul Normal 1.2-3.8 [facility] Comment on above: Performed By: #### E RUR #### [facility] [address] [place] [address] Dr. Mirza Sadler Lymphocytes/100 WBC (Bld) 22.6 % Normal 20.5-60.0 [facility] Comment on above: Performed By: #### E RUR #### [facility] [address] [place] [address] Dr. Mirza Sadler MANUAL DIFF REQ NO Normal [facility] [place] Comment on above: Performed By: #### E RUR #### [facility] [address] [place] [address] Dr. Mirza Sadler MCH (RBC) [Entitic mass] 29.0 pg Normal 25.9-34.0 [facility] Comment on above: Performed By: #### E RUR #### [facility] [address] [place] [address] Dr. Mirza Sadler MCHC (RBC) [Mass/Vol] 33.0 g/dL Normal 29.9-35.2 [facility] Comment on above: Performed By: #### E RUR #### [facility] [address] [place] [address] Dr. Mirza Sadler MCV (RBC) [Entitic vol] 88.0 fL Normal 80.0-94.0 [facility] Comment on above: Performed By: #### E RUR #### [facility] [address] [place] [address] Dr. Mirza Sadler MONO # 0.7 103/ul Normal 0.3-0.8 [facility] Comment on above: Performed By: #### E RUR #### [facility] [address] [place] [address] Dr. Mirza Sadler Monocytes/100 WBC (Bld) 10.2 % Normal 1.7-12.0 [facility] Comment on above: Performed By: #### E RUR #### [facility] [address] [place] [address] Dr. Mirza Sadler NEUT # 4.3 103/ul Normal 1.4-6.[address] [facility] Comment on above: Performed By: #### E RUR #### [facility] [address] [place] [address] Dr. Mirza Sadler Neutrophils/100 WBC (Bld) 64.5 % Normal 43.0-75.[address] [facility] Comment on above: Performed By: #### E RUR #### [facility] [address] [place] [address] Dr. Mirza Sadler Platelet mean volume (Bld) [Entitic vol] 9.7 fL Normal 9.5-13.5 [facility] Comment on above: Performed By: #### E RUR #### [facility] [address] [place] [address] Dr. Mirza Sadler PLT 149 103/ul Critically low 150-450 [facility] Comment on above: Performed By: #### E RUR #### [facility] [address] [address] [address] Mirza Sadler RBC 4.10 106/ul Critically low 4.70-6.10 [facility] [place] Comment on above: Performed By: #### E RUR #### [facility] [address] [place] [address] Dr. Mirza Sadler WBC 6.6 103/ul Normal 4.0-11.0 [facility] Comment on above: Performed By: #### E RUR #### [facility] [address] [place] [address] Dr. Mirza Sadler PROF CHEM 8 (BAS METB)on Anion gap [Moles/Vol] 14.6 mmol/L Normal [facility] Comment on above: Performed By: #### E RUR #### [facility] [address] [place] [address] Dr. Mirza Sadler Calcium [Mass/Vol] 8.5 mg/dL Normal 8.5-10.1 [facility] Comment on above: Performed By: #### E RUR #### [facility] [address] [place] [address] Dr. Mirza Sadler Chloride [Moles/Vol] 104 mmol/L Normal 98-107 [facility] Comment on above: Performed By: #### E RUR #### [facility] [address] [place] [address] Dr. Mirza Sadler CO2 [Moles/Vol] 22.7 mmol/L Normal 21.0-32.0 [facility] Comment on above: Performed By: #### E RUR #### [facility] [address] [place] [address] Dr. Mirza Sadler Creatinine [Mass/Vol] 1.78 mg/dL Critically high 0.70-1.30 [facility] Comment on above: Performed By: #### E RUR #### [facility] [address] [address] [address] Mirza Sadler EGFR-AF GREEK 46 mL/min/1.73m2 Critically low >=60 [facility] Comment on above: Performed By: #### E RUR #### [facility] [address] [address] [address] Mirza Sadler EGFR-NON AF GREEK 38 mL/min/1.73m2 Critically low >=60 [facility] Comment on above: Performed By: #### E RUR #### [facility] [address] [place] [address] Dr. Mizra Sadler Glucose [Mass/Vol] 121 mg/dL Critically high 74-106 [facility] Comment on above: Performed By: #### E RUR #### [facility] [address] [place] [address] Dr. Mirza Sadler Potassium [Moles/Vol] 3.3 mmol/L Critically low 3.5-5.1 [facility] Comment on above: Performed By: #### E RUR #### [facility] [address] [place] [address] Dr. Mirza Sadler Sodium [Moles/Vol] 138 mmol/L Normal 136-145 [facility] Comment on above: Performed By: #### E RUR #### [facility] [address] [address] [address] Mirza Sadler Urea nitrogen [Mass/Vol] 30.0 mg/dL Critically high 7.0-18.0 [facility] Comment on above: Performed By: #### E RUR #### [facility] [address] [place] [address] Dr. Mirza Sadler Urea nitrogen/Creatinine [Mass ratio] 16.9 mg/mg Normal [facility] Comment on above: Performed By: #### E RUR #### [facility] [address] [place] [address] Dr. Mirza Salder BNPon 03-12-2022 Natriuretic peptide B (Bld) [Mass/Vol] 7452.0 pg/mL Critically high <=900.[address] [facility] Comment on above: Performed By: #### C MP, CMADM #### [facility] [address] [place] [address] Dr. Mirza Sadler CBC AUTO DIFFon 03-12-2022 BASO # 0.0 103/ul Normal 0.0-0.[address] [facility] Comment on above: Performed By: #### P T, PTT #### [facility] [address] [place] [address] Dr. Mirza Sadler Basophils/100 WBC (Bld) 0.4 % Normal 0.2-2.[address] [facility] Comment on above: Performed By: #### P T, PTT #### [facility] [address] [place] [address] Dr. Mirza Sadler EO # 0.0 103/ul Normal 0.0-0.[address] [facility] Comment on above: Performed By: #### P T, PTT #### [facility] [address] [place] [address] Dr. Mirza Sadler Eosinophils/100 WBC (Bld) 0.2 % Critically low 0.9-7.0 [facility] Comment on above: Performed By: #### P T, PTT #### [facility] [address] [place] [address] Dr. Mirza Sadler Erythrocyte distribution width (RBC) [Ratio] 14.6 % Normal 11.0-15.[address] [facility] Comment on above: Performed By: #### P T, PTT #### [facility] [address] [place] [address] Dr. Mirza Sadler Hematocrit (Bld) [Volume fraction] 37.8 % Critically low 42.0-54.[address] [facility] Comment on above: Performed By: #### P T, PTT #### [facility] [address] [place] [address] Dr. Mirza Sadler Hemoglobin (Bld) [Mass/Vol] 12.2 g/dL Critically low 14.0-18.[address] [facility] Comment on above: Performed By: #### P T, PTT #### [facility] [address] [address] [address] Mirza Sadler IG # 0.03 10e3/ul Normal 0.00-0.03 [facility] Comment on above: Performed By: #### P T, PTT #### [facility] [address] [place] [address] Dr. Mirza Sadler IG % 0.3 % Normal 0.0-0.5 [facility] Comment on above: Performed By: #### P T, PTT #### [facility] [address] [place] [address] Dr. Mirza Sadler LYMPH # 1.2 103/ul Normal 1.2-3.8 [facility] Comment on above: Performed By: #### P T, PTT #### [facility] [address] [place] [address] Dr. Mirza Sadler Lymphocytes/100 WBC (Bld) 11.5 % Critically low 20.5-60.0 [facility] Comment on above: Performed By: #### P T, PTT #### [facility] [address] [place] [address] Dr. Mirza Sadler MANUAL DIFF REQ NO Normal [facility] [place] Comment on above: Performed By: #### P T, PTT #### [facility] [address] [place] [address] Dr. Mirza Sadler MCH (RBC) [Entitic mass] 29.0 pg Normal 25.9-34.0 [facility] Comment on above: Performed By: #### P T, PTT #### [facility] [address] [place] [address] Dr. Mirza Sadler MCHC (RBC) [Mass/Vol] 32.3 g/dL Normal 29.9-35.[address] [facility] Comment on above: Performed By: #### P T, PTT #### [facility] [address] [place] [address] Dr. Mirza Sadler MCV (RBC) [Entitic vol] 89.8 fL Normal 80.0-94.0 [facility] Comment on above: Performed By: #### P T, PTT #### [facility] [address] [address] [address] Mirza Sadler MONO # 0.7 103/ul Normal 0.3-0.[address] [facility] Comment on above: Performed By: #### P T, PTT #### [facility] [address] [place] [address] Dr. Mirza Sadler Monocytes/100 WBC (Bld) 6.8 % Normal 1.7-12.0 [facility] Comment on above: Performed By: #### P T, PTT #### [facility] [address] [place] [address] Dr. Mirza Sadler NEUT # 8.5 103/ul Critically high 1.4-6.5 [facility] [place] Comment on above: Performed By: #### P T, PTT #### [facility] [address] [place] [address] Dr. Mirza Sadler Neutrophils/100 WBC (Bld) 80.8 % Critically high 43.0-75.0 [facility] Comment on above: Performed By: #### P T, PTT #### [facility] [address] [place] [address] Dr. Mirza Sadler Platelet mean volume (Bld) [Entitic vol] 9.8 fL Normal 9.5-13.5 [facility] Comment on above: Performed By: #### P T, PTT #### [facility] [address] [place] [address] Dr. Mirza Sadler PLT 165 103/ul Normal 150-[address] [facility] Comment on above: Performed By: #### P T, PTT #### [facility] [address] [place] [address] Dr. Mirza Sadler RBC 4.21 106/ul Critically low 4.70-6.10 [facility] Comment on above: Performed By: #### P T, PTT #### [facility] [address] [place] [address] Dr. Mirza Sadler WBC 10.5 103/ul Normal 4.0-11.[address] [facility] Comment on above: Performed By: #### P T, PTT #### [facility] [address] [address] [address] Mirza Sadler ECHOCARDIO M/2D COMPLETEon 1 05-13-2021 ECHOCARDIO M/2D COMPLETE Patient: LANI LIZAMA Exam Date: 03/12/2022 : 1950 Gender:M Ordering : DR OBDULIO ALVA . Admission #: [id number] Family : DR HARLEY CRESPO D.O. Order #: [id number] CLICK HERE TO VIEW EXAM ECHOCARDIOGRAM REPORT PROCEDURE: CARDIO PULMONARY ECHOCARDIO M/2D COMP INDICATIONS: Elevated TROP and BNPChest pain, recent [place], CHF, CBAG x 5, PTCA x 7 [...] Foreman M.D. on 03/13/2022 at 17:42 Normal [facility] PROF CHEM 8 (BAS METB)on Anion gap [Moles/Vol] 17.8 mmol/L Normal [facility] Comment on above: Performed By: #### C TEGAN MARIN #### [facility] [address] [address] [address] Mirza Sadler Calcium [Mass/Vol] 8.6 mg/dL Normal 8.5-10.1 [facility] Comment on above: Performed By: #### C TEGAN MARIN #### [facility] [address] [address] [address] Mirza Sadler Chloride [Moles/Vol] 103 mmol/L Normal 98-107 [facility] Comment on above: Performed By: #### C TEGAN MARIN #### [facility] [address] [address] [address] Mirza Sadler CO2 [Moles/Vol] 22.3 mmol/L Normal 21.0-32.0 [facility] Comment on above: Performed By: #### C MP, CMADM #### [facility] [address] [address] [address] Mirza Sadler Creatinine [Mass/Vol] 1.81 mg/dL Critically high 0.70-1.30 [facility] Comment on above: Performed By: #### C MP, CMADM #### [facility] [address] [address] [address] Mirza Sadler EGFR-AF GREEK 45 mL/min/1.73m2 Critically low >=60 [facility] Comment on above: Performed By: #### C TANIA, CMADM #### [facility] [address] [place] [address] Dr. Mirza Sadler EGFR-NON AF GREEK 37 mL/min/1.73m2 Critically low >=60 [facility] Comment on above: Performed By: #### C TANIA, CMADM #### [facility] Laboratory [address] [address] [address] Mirza Sadler Glucose [Mass/Vol] 161 mg/dL Critically high 74-106 [facility] Comment on above: Performed By: #### C TANIA, CMADM #### [facility] [address] [place] [address] Dr. Mirza Sadler Potassium [Moles/Vol] 4.1 mmol/L Normal 3.5-5.1 [facility] Comment on above: Performed By: #### C TANIA, CMADM #### [facility] [address] [place] [address] Dr. Mirza Sadler Sodium [Moles/Vol] 139 mmol/L Normal 136-145 [facility] Comment on above: Performed By: #### C TANIA, CMADM #### [facility] [address] [place] [address] Dr. Mirza Sadler Urea nitrogen [Mass/Vol] 28.0 mg/dL Critically high 7.0-18.0 [facility] Comment on above: Performed By: #### C TANIA, CMADM #### [facility] [address] [place] [address] Dr. Mirza Sadler Urea nitrogen/Creatinine [Mass ratio] 15.5 mg/mg Normal [facility] Comment on above: Performed By: #### C TANIA, CMADM #### [facility] [address] [place] [address] Dr. Mirza Sadler TROPONIN, HIGH SENSITIVITYon 03-12-2022 HSTROP 85987.5 pg/mL Critically high 4.0-76.1 [facility] Comment on above: Result Comment: CUT- OFF POINTS HAVE BEEN ESTABLISHED BASED ON THE FOURTH UNIVERSAL DEFINITIONS OF MYOCARDIAL INFARCTION. THE UPPER REFERENCE LIMIT (URL) OF TROPONIN, DEFINED THE 99TH PERCENTILE OF cTnI DISTRIBUTION IN A REFERENCE POPULATION, HAS BEEN CONFIRMED THE DECISION THRESHOLD FOR [place] DIAGNOSIS. Performed By: #### C TANIA, CMADM #### [facility] [address] [place] [address] Dr. Mirza Sadler BNPon 03-11-2022 Natriuretic peptide B (Bld) [Mass/Vol] 1378.0 pg/mL Critically high <=900.0 [facility] Comment on above: Performed By: #### P T, PTT #### [facility] [address] [place] [address] Dr. Mirza Sadler CARDIAC PARUL 3-6on 2 CK [Catalytic activity/Vol] 139 U/L Normal 39-308 [facility] Comment on above: Performed By: #### E RUR #### [facility] [address] [place] [address] Dr. Mirza Sadler CK.MB [Mass/Vol] 7.50 ng/mL Critically high <=3.60 [facility] Comment on above: Performed By: #### E RUR #### [facility] [address] [address] [address] Mirza Sadler HSTROP 1419.3 pg/mL Critically high 4.0-76.1 [facility] Comment on above: Result Comment: CUT- OFF POINTS HAVE BEEN ESTABLISHED BASED ON THE FOURTH UNIVERSAL DEFINITIONS OF MYOCARDIAL INFARCTION. THE UPPER REFERENCE LIMIT (URL) OF TROPONIN, DEFINED THE 99TH PERCENTILE OF cTnI DISTRIBUTION IN A REFERENCE POPULATION, HAS BEEN CONFIRMED THE DECISION THRESHOLD FOR [place] DIAGNOSIS. Performed By: #### E RUR #### [facility] [address] [address] [address] Mirza Sadler CBC AUTO DIFFon 03-11-2022 BASO # 0.1 103/ul Normal 0.0-0.1 [facility] Comment on above: Performed By: #### E RUR #### [facility] [address] [address] [address] Mirza Sadler Basophils/100 WBC (Bld) 0.5 % Normal 0.2-2.0 [facility] Comment on above: Performed By: #### E RUR #### [facility] [address] [place] [address] Dr. Mirza Sadler EO # 0.2 103/ul Normal 0.0-0.7 [facility] Comment on above: Performed By: #### E RUR #### [facility] [address] [place] [address] Dr. Mirza Sadler Eosinophils/100 WBC (Bld) 1.3 % Normal 0.9-7.0 [facility] Comment on above: Performed By: #### E RUR #### [facility] [address] [place] [address] Dr. Mirza Sadler Erythrocyte distribution width (RBC) [Ratio] 14.6 % Normal 11.0-15.0 [facility] Comment on above: Performed By: #### E RUR #### [facility] [address] [place] [address] Dr. Mirza Sadler Hematocrit (Bld) [Volume fraction] 43.1 % Normal 42.0-54.0 [facility] Comment on above: Performed By: #### E RUR #### [facility] [address] [place] [address] Dr. Mirza Sadler Hemoglobin (Bld) [Mass/Vol] 14.2 g/dL Normal 14.0-18.0 [facility] Comment on above: Performed By: #### E RUR #### [facility] [address] [place] [address] Dr. Mirza Sadler IG # 0.07 10e3/ul Critically high 0.00-0.03 [facility] Comment on above: Performed By: #### E RUR #### [facility] [address] [place] [address] Dr. Mirza Sadler IG % 0.5 % Normal 0.0-0.5 [facility] Comment on above: Performed By: #### E RUR #### [facility] [address] [address] [address] Mirza Sadler LYMPH # 1.3 103/ul Normal 1.2-3.8 [facility] Comment on above: Performed By: #### E RUR #### [facility] [address] [place] [address] Dr. Mirza Sadler Lymphocytes/100 WBC (Bld) 8.6 % Critically low 20.5-60.0 [facility] Comment on above: Performed By: #### E RUR #### [facility] [address] [place] [address] Dr. Mirza Sadler MANUAL DIFF REQ NO Normal [facility] [place] Comment on above: Performed By: #### E RUR #### [facility] [address] [place] [address] Dr. Mirza Sadler MCH (RBC) [Entitic mass] 29.3 pg Normal 25.9-34.0 [facility] Comment on above: Performed By: #### E RUR #### [facility] [address] [place] [address] Dr. Mirza Sadler MCHC (RBC) [Mass/Vol] 32.9 g/dL Normal 29.9-35.2 [facility] Comment on above: Performed By: #### E RUR #### [facility] [address] [place] [address] Dr. Mirza Sadler MCV (RBC) [Entitic vol] 88.9 fL Normal 80.0-94.0 [facility] Comment on above: Performed By: #### E RUR #### [facility] [address] [place] [address] Dr. Mirza Sadler MONO # 0.7 103/ul Normal 0.3-0.8 [facility] Comment on above: Performed By: #### E RUR #### [facility] [address] [place] [address] Dr. Mirza Sadler Monocytes/100 WBC (Bld) 4.3 % Normal 1.7-12.0 [facility] Comment on above: Performed By: #### E RUR #### [facility] [address] [place] [address] Dr. Mirza Sadler NEUT # 12.8 103/ul Critically high 1.4-6.5 [facility] Comment on above: Performed By: #### E RUR #### [facility] [address] [place] [address] Dr. Mirza Sadler Neutrophils/100 WBC (Bld) 84.8 % Critically high 43.0-75.0 [facility] Comment on above: Performed By: #### E RUR #### [facility] [address] [place] [address] Dr. Mirza Sadler Platelet mean volume (Bld) [Entitic vol] 9.9 fL Normal 9.5-13.[address] [facility] Comment on above: Performed By: #### E RUR #### [facility] [address] [place] [address] Dr. Mirza Sadler PLT 201 103/ul Normal 150-[address] [facility] Comment on above: Performed By: #### E RUR #### [facility] [address] [place] [address] Dr. Mirza Sadler RBC 4.85 106/ul Normal 4.70-6.[address] [facility] Comment on above: Performed By: #### E RUR #### [facility] [address] [place] [address] Dr. Mirza Sadler WBC 15.0 103/ul Critically high 4.0-11.0 [facility] Comment on above: Performed By: #### E RUR #### [facility] [address] [place] [address] Dr. Mirza Sadler CULTURE BLOODon 03-11-2022 Microscopic examination of blood, culture Culture Observations: NO GROWTH AT 5 DAYS. Normal [facility] Comment on above: Performed By: #### H STROPN #### [facility] [address] [place] [address] Dr. Mirza Sadler Microscopic examination of blood, culture Culture Observations: NO GROWTH AT 5 DAYS. Normal [facility] Comment on above: Performed By: #### H STROPN #### [facility] [address] [place] [address] Dr. Mirza Sadler Covid-19 PCR ([facility])on 03-01 SARS-CoV-2 (COVID-19) RNA RAMO+probe Ql (Unsp spec) Not detected Normal NOT DETECTED [facility] Comment on above: Result Comment: When [...] for this test is supported by the Gear Inspector of Health and Human Service's declaration [...] By: #### H STROPN #### [facility] [address] [place] [address] Dr. Mirza Sadler ER URINE PROFILEon 2 Bilirubin Ql (U) Negative Normal NEGATIVE [facility] Comment on above: Performed By: #### E RUR #### [facility] [address] [place] [address] Dr. Mirza Sadler Clarity (U) CLEAR Normal CLEAR [facility] Comment on above: Performed By: #### E RUR #### [facility] [address] [place] [address] Dr. Mirza Sadler Color (U) LT. YELLOW Normal YELLOW [facility] Comment on above: Performed By: #### E RUR #### [facility] [address] [place] [address] Dr. Mirza BUSTILLO A micrscopic examina tion will be performed if indicated. Normal [facility] Comment on above: Performed By: #### E RUR #### [facility] [address] [place] [address] Dr. Mirza Sadler Glucose Ql (U) >[address] [facility] Comment on above: Performed By: #### E RUR #### [facility] [address] [place] [address] Dr. Mirza Sadler Hemoglobin Ql (U) Negative Normal NEGATIVE [facility] Comment on above: Performed By: #### E RUR #### [facility] [address] [place] [address] Dr. Mirza Sadler Ketones Ql (U) 15 mg/dl Abnormal NEGATIVE [facility] Comment on above: Performed By: #### E RUR #### [facility] [address] [place] [address] Dr. Mirza Sadler LEUKOCYTES Negative Normal NEGATIVE [facility] Comment on above: Performed By: #### E RUR #### [facility] [address] [place] [address] Dr. Mirza Sadler Nitrite Ql (U) Negative Normal NEGATIVE [facility] Comment on above: Performed By: #### E RUR #### [facility] [address] [place] [address] Dr. Mirza Sadler pH (U) 5.0 [pH] Normal 5-[address] [facility] Comment on above: Performed By: #### E RUR #### [facility] [address] [place] [address] Dr. Mirza Sadler SPEC GRAVITY 1.020 Normal 1.005-<=1. 025 [facility] Comment on above: Performed By: #### E RUR #### [facility] [address] [place] [address] Dr. Mirza Sadler UA PROTEIN TRACE Normal NEGATIVE/ TRACE [facility] Comment on above: Performed By: #### E RUR #### [facility] [address] [address] [address] Mirza Sadler UR MICRO IND NOT INDICATED Normal [facility] [place] Comment on above: Performed By: #### E RUR #### [facility] [address] [place] [address] Dr. Mirza Sadler Urobilinogen Qn (U) 0.2 {Luisito'U}/dL Normal 0.2 - 1. 0 [facility] Comment on above: Performed By: #### E RUR #### [facility] [address] [place] [address] Dr. Mirza Sadler POINT OF CARE GLUCOSEon 03-01 Glucose [Mass/Vol] 161 mg/dL Critically high 74-106 [facility] Comment on above: Performed By: #### P T, PTT #### [facility] [address] [place] [address] Dr. iMrza Sadler PROF 14(COMP METB)on 022 Albumin [Mass/Vol] 4.3 g/dL Normal 3.4-5.0 [facility] Comment on above: Performed By: #### P T, PTT #### [facility] [address] [place] [address] Dr. Mirza Sadler Albumin/Globulin [Mass ratio] 1.1 {ratio} Normal [facility] Comment on above: Performed By: #### P T, PTT #### [facility] [address] [place] [address] Dr. Mirza Sadler ALP [Catalytic activity/Vol] 156 U/L Critically high 46-116 [facility] Comment on above: Performed By: #### P T, PTT #### [facility] [address] [place] [address] Dr. Mirza Sadler ALT [Catalytic activity/Vol] 24 U/L Normal 16-63 [facility] Comment on above: Performed By: #### P T, PTT #### [facility] [address] [place] [address] Dr. Mirza Sadler Anion gap [Moles/Vol] 16.7 mmol/L Normal [facility] Comment on above: Performed By: #### P T, PTT #### [facility] [address] [place] [address] Dr. Mirza Sadler AST [Catalytic activity/Vol] 21 U/L Normal 15-37 [facility] Comment on above: Performed By: #### P T, PTT #### [facility] [address] [place] [address] Dr. Mirza Sadler Bilirubin [Mass/Vol] 1.1 mg/dL Critically high 0.2-1.0 [facility] Comment on above: Performed By: #### P T, PTT #### [facility] [address] [place] [address] Dr. Mirza Sadler Calcium [Mass/Vol] 8.8 mg/dL Normal 8.5-10.1 [facility] Comment on above: Performed By: #### P T, PTT #### [facility] [address] [place] [address] Dr. Mirza Sadler Chloride [Moles/Vol] 105 mmol/L Normal 98-107 [facility] Comment on above: Performed By: #### P T, PTT #### [facility] [address] [place] [address] Dr. Mirza Sadler CO2 [Moles/Vol] 25.0 mmol/L Normal 21.0-32.0 [facility] Comment on above: Performed By: #### P T, PTT #### [facility] [address] [place] [address] Dr. Mirza Sadler Creatinine [Mass/Vol] 1.57 mg/dL Critically high 0.70-1.30 [facility] Comment on above: Performed By: #### P T, PTT #### [facility] [address] [place] [address] Dr. Mirza Sadler EGFR-AF GREEK 53 mL/min/1.73m2 Critically low >=[address] [facility] Comment on above: Performed By: #### P T, PTT #### [facility] [address] [place] [address] Dr. Mirza Sadler EGFR-NON AF GREEK 44 mL/min/1.73m2 Critically low >=60 [facility] Comment on above: Performed By: #### P T, PTT #### [facility] [address] [address] [address] Mirza Sadler Globulin (S) [Mass/Vol] 3.9 g/dL Normal [facility] Comment on above: Performed By: #### P T, PTT #### [facility] [address] [address] [address] Mirza Sadler Glucose [Mass/Vol] 188 mg/dL Critically high 74-106 [facility] Comment on above: Performed By: #### P T, PTT #### [facility] [address] [place] [address] Dr. Mirza Sadler Potassium [Moles/Vol] 3.7 mmol/L Normal 3.5-5.1 [facility] Comment on above: Performed By: #### P T, PTT #### [facility] [address] [place] [address] Dr. Mirza Sadler Protein [Mass/Vol] 8.2 g/dL Normal 6.4-8.[address] [facility] Comment on above: Performed By: #### P T, PTT #### [facility] [address] [place] [address] Dr. Mirza Sadler Sodium [Moles/Vol] 143 mmol/L Normal 136-[address] [facility] Comment on above: Performed By: #### P T, PTT #### [facility] [address] [place] [address] Dr. Mirza Sadler Urea nitrogen [Mass/Vol] 20.0 mg/dL Critically high 7.0-18.0 [facility] Comment on above: Performed By: #### P T, PTT #### [facility] [address] [place] [address] Dr. Mirza Sadler Urea nitrogen/Creatinine [Mass ratio] 12.7 mg/mg Normal [facility] Comment on above: Performed By: #### P T, PTT #### [facility] [address] [place] [address] Dr. Mirza Sadler RESPIRATORY PANEL PLUSon Adenovirus Not detected Normal NOT DETECTED [facility] Comment on above: Performed By: #### P T, PTT #### [facility] [address] [place] [address] Dr. Mirza Ball Parapertusis Not detected Normal NOT DETECTED [facility] Comment on above: Performed By: #### P T, PTT #### [facility] [address] [place] [address] Dr. Mirza Ball Pertussis Not detected Normal NOT DETECTED [facility] Comment on above: Performed By: #### P T, PTT #### [facility] [address] [place] [address] Dr. Mirza Sadler Chlamydia Pneumoniae Not detected Normal NOT DETECTED [facility] Comment on above: Performed By: #### P T, PTT #### [facility] [address] [place] [address] Dr. Mirza Sadler Coronavirus 229E Not detected Normal NOT DETECTED [facility] Comment on above: Performed By: #### P T, PTT #### [facility] [address] [place] [address] Dr. Mirza Sadler Coronavirus HKU1 Not detected Normal NOT DETECTED [facility] Comment on above: Performed By: #### P T, PTT #### [facility] [address] [place] [address] Dr. Mirza Sadler Coronavirus NL63 Not detected Normal NOT DETECTED [facility] Comment on above: Performed By: #### P T, PTT #### [facility] [address] [place] [address] Dr. Mirza Sadler Coronavirus OC43 Not detected Normal NOT DETECTED [facility] Comment on above: Performed By: #### P T, PTT #### [facility] [address] [place] [address] Dr. Mirza Sadler Influenza A H1 2009 Not detected Normal NOT DETECTED [facility] Comment on above: Performed By: #### P T, PTT #### [facility] [address] [place] [address] Dr. Mirza Sadler Influenza A H3 Not detected Normal NOT DETECTED [facility] Comment on above: Performed By: #### P T, PTT #### [facility] [address] [place] [address] Dr. Mirza Sadler Influenza B Not detected Normal NOT DETECTED [facility] Comment on above: Performed By: #### P T, PTT #### [facility] [address] [place] [address] Dr. Mirza Sadler Metapneumovirus Not detected Normal NOT DETECTED [facility] Comment on above: Performed By: #### P T, PTT #### [facility] [address] [place] [address] Dr. Mirza Sadler Mycoplas. Pneumoniae Not detected Normal NOT DETECTED [facility] Comment on above: Performed By: #### P T, PTT #### [facility] [address] [place] [address] Dr. Mirza Sadler Parainfluenza 1 Not detected Normal NOT DETECTED [facility] Comment on above: Performed By: #### P T, PTT #### [facility] [address] [place] [address] Dr. Mirza Sadler Parainfluenza 2 Not detected Normal NOT DETECTED [facility] Comment on above: Performed By: #### P T, PTT #### [facility] [address] [place] [address] Dr. Mirza Sadler Parainfluenza 3 Not detected Normal NOT DETECTED [facility] Comment on above: Performed By: #### P T, PTT #### [facility] [address] [place] [address] Dr. Mirza Sadler Parainfluenza 4 Not detected Normal NOT DETECTED [facility] Comment on above: Performed By: #### P T, PTT #### [facility] [address] [place] [address] Dr. Mirza Sadler Rhino/Enterovirus Not detected Normal NOT DETECTED [facility] Comment on above: Performed By: #### P T, PTT #### [facility] [address] [place] [address] Dr. Mirza Sadler RP2 Header 1 RESPIRATORY PANEL: VIRUSES Normal [facility] Comment on above: Performed By: #### P T, PTT #### [facility] [address] [place] [address] Dr. Mirza Sadler RP2 Header 2 RESPIRATORY PANEL: BACTERIA Normal [facility] Comment on above: Performed By: #### P T, PTT #### [facility] [address] [place] [address] Dr. Mirza Sadler RSV Not detected Normal NOT DETECTED [facility] Comment on above: Performed By: #### P T, PTT #### [facility] [address] [place] [address] Dr. Mirza Sadler SARS-CoV-2 (COVID-19) RNA RAMO+probe Ql (Unsp spec) Not detected Normal NOT DETECTED [facility] Comment on above: Performed By: #### P T, PTT #### [facility] [address] [place] [address] Dr. Mirza Sadler TROPONIN, HIGH SENSITIVITYon 03-11-2022 HSTROP 94534.8 pg/mL Critically high 4.0-76.1 [facility] Comment on above: Result Comment: CUT- OFF POINTS HAVE BEEN ESTABLISHED BASED ON THE FOURTH UNIVERSAL DEFINITIONS OF MYOCARDIAL INFARCTION. THE UPPER REFERENCE LIMIT (URL) OF TROPONIN, DEFINED THE 99TH PERCENTILE OF cTnI DISTRIBUTION IN A REFERENCE POPULATION, HAS BEEN CONFIRMED THE DECISION THRESHOLD FOR [place] DIAGNOSIS. Performed By: #### C MP, CMADM #### [facility] [address] [place] [address] Dr. Mirza Sadler HSTROP 41.0 pg/mL Normal 4.0-76.1 [facility] Comment on above: Result Comment: CUT- OFF POINTS HAVE BEEN ESTABLISHED BASED ON THE FOURTH UNIVERSAL DEFINITIONS OF MYOCARDIAL INFARCTION. THE UPPER REFERENCE LIMIT (URL) OF TROPONIN, DEFINED THE 99TH PERCENTILE OF cTnI DISTRIBUTION IN A REFERENCE POPULATION, HAS BEEN CONFIRMED THE DECISION THRESHOLD FOR [place] DIAGNOSIS. Performed By: #### P T, PTT #### [facility] [address] [place] [address] Dr. Mirza Sadler XR CHEST 1 Von [...] by: Kayden ACEVES Date: 2022-03-11 05:42 Normal [facility] NM MUGAon 03-09-2022 NM MUGA EXAMINATION: [...] Date: 2022-03-09 12:26 Normal [facility] CT CHEST WO CONon 03-02-2022 CT [...] Date: 2022-03-02 08:52 Normal [facility] Creatinine and Glomerular fi ltration rate.predicted panel (S/P/Bld)Ordered By: Gagan Shahid on 01-17-2022 Creatinine [Mass/Vol] 1.53 mg/dL 0.64-1.27 [facility] Estimated glomerular filtrat ion rate (GFR) non- AmericanOrdered By: Gagan Shahid on 01-17-2022 GFR/1.73 sq M.predicted among non-blacks MDRD (S/P/Bld) [Vol rate/Area] 45 mL/[facility] Glucose Glucometer (BldC) [M ass/Vol]Ordered By: Gagan Shahid on 01-17-2022 Glucose [Mass/Vol] 178 mg/dL [facility] Comment on above: Random Glucose Refer ence Range is dependent on time and content of last meal. Glucose of more than 200 mg/dL in a nonstressed, ambulatory subject supports the diagnosis of Diabetes Mellitus. No Panel InformationOrdered By: Gagan Shahid on 01-17-2022 Estimated GFR () 55 mL/[facility] Comment on above: GFR estimated refere nce range: According to KDOQI guidelines, <60 ml/min/1.73m2 is sufficient to diagnose a patient with chronic kidney disease. Pharmacy Creatinine Clearance (Chem 42.00 [facility] Serum or plasma anion gap de terminationOrdered By: Gagan Shahid on 01-17-2022 Anion gap [Moles/Vol] 12.0 mmol/L 6.0-15.0 [facility] Serum or plasma calcium radha urement (mass/volume)Ordered By: Gagan Shahid on 01-17-2022 Calcium [Mass/Vol] 9.0 mg/dL 8.2-10.2 [facility] Serum or plasma chloride shanae surement (moles/volume)Ordered By: Gagan Shahid on 01-17-2022 Chloride [Moles/Vol] 107 mmol/L 95-114 [facility] Serum or plasma glucose radha urement (mass/volume)Ordered By: Gagan Shahid on 01-17-2022 Glucose [Mass/Vol] 142 mg/dL 70-100 [facility] Comment on above: ADA recommended refe rence rangeRandom Glucose Reference Range is dependent on time and content of last meal. Glucose of more than 200 mg/dL in a nonstressed, ambulatory subject supports the diagnosis of Diabetes Mellitus. Serum or plasma potassium me asurement (moles/volume)Ordered By: Gagan Shahid on 01-17-2022 Potassium [Moles/Vol] 3.5 mmol/L 3.5-5.1 [facility] Serum or plasma sodium measu rement (moles/volume)Ordered By: Gagan Shahid on 01-17-2022 Sodium [Moles/Vol] 137 mmol/L 136-146 [facility] Serum or plasma total carbon dioxide measurement (moles/volume)Ordered By: Gagan Shahid on 01-17-2022 CO2 [Moles/Vol] 21.5 mmol/L 22.0-30.0 [facility] Serum or plasma urea nitroge n measurement (mass/volume)Ordered By: Gagan Shahid on 01-17-2022 Urea nitrogen [Mass/Vol] 24 mg/dL 9-23 [facility] Activated partial thrombopla stin time (aPTT) in platelet poor plasma by coagulation aOrdered By: Gagan Shahid on 01-16-2022 aPTT Coag (PPP) [Time] 42.1 s 25.1-36.5 [facility] Basophils Auto (Bld) [#/Vol] Ordered By: Gagan Sahhid on 01-16-2022 Basophils (Bld) [#/Vol] 0.0 10*3/uL 0.0-0.2 [facility] Basophils/100 WBC Auto (Bld) Ordered By: Gagan Shahid on 01-16-2022 Basophils/100 WBC (Bld) 0.5 % . [facility] Creatine kinase [Enzymatic a ctivity/volume] in Serum or PlasmaOrdered By: Gagan Shahid on 01-16-2022 CK [Catalytic activity/Vol] 92 U/L 22-269 [facility] Eosinophils Auto (Bld) [#/Vo l]Ordered By: Gagan Shahid on 01-16-2022 Eosinophils (Bld) [#/Vol] 0.2 10*3/uL 0.0-0.45 [facility] Eosinophils/100 WBC Auto (Bl d)Ordered By: Gagan Shahid on 01-16-2022 Eosinophils/100 WBC (Bld) 2.4 % . [facility] Erythrocyte distribution wid th Auto (RBC) [Ratio]Ordered By: Gagan Shahid on 01-16-2022 Erythrocyte distribution width (RBC) [Ratio] 14.6 % 12.0-14.8 [facility] Hematocrit Auto (Bld) [Volum e fraction]Ordered By: Gagan Shahid on 01-16-2022 Hematocrit (Bld) [Volume fraction] 43.4 % 38.8-50.0 [facility] Hemoglobin [Mass/volume] in BloodOrdered By: Gagan Shahid on 01-16-2022 Hemoglobin (Bld) [Mass/Vol] 14.4 g/dL 13.0-17.0 [facility] - Chemistry and C hemistry - challengeOrdered By: Gagan Shahid on 01-16-2022 Magnesium [Mass/Vol] 1.9 mg/dL 1.6-2.6 [facility] - CoagulationOrde red By: Gagan Shahid on 01-16-2022 PT Coag (PPP) [Time] 15.7 s 9.0-12.9 [facility] - Hematology and Cell countsOrdered By: Gagan Shahid on 01-16-2022 Nucleated RBC/100 WBC (Bld) [Ratio] 0.1 % 0-0.5 [facility] Leukocytes [#/volume] in Blo od by Automated countOrdered By: Gagan Shahid on 01-16-2022 WBC (Bld) [#/Vol] 8.2 10*3/uL 4.5-11.0 [facility] Lymphocytes Auto (Bld) [#/Vo l]Ordered By: Gagan Shahid on 01-16-2022 Lymphocytes (Bld) [#/Vol] 1.6 10*3/uL 1.00-4.8 [facility] Lymphocytes/100 WBC Auto (Bl d)Ordered By: Gagan Shahid on 01-16-2022 Lymphocytes/100 WBC (Bld) 19.5 % . [facility] MCH Auto (RBC) [Entitic mass ]Ordered By: Gagan Shahid on 01-16-2022 MCH (RBC) [Entitic mass] 29.4 pg 27.5-35.2 [facility] MCHC Auto (RBC) [Mass/Vol]Or dered By: Gagan Shahid on 01-16-2022 MCHC (RBC) [Mass/Vol] 33.2 g/dL 32.5-35.6 [facility] MCV Auto (RBC) [Entitic vol] Ordered By: Gagan Shahid on 01-16-2022 MCV (RBC) [Entitic vol] 88.5 fL 83.5-101 [facility] Monocytes Auto (Bld) [#/Vol] Ordered By: Gagan Shahid on 01-16-2022 Monocytes (Bld) [#/Vol] 0.8 10*3/uL 0.0-0.8 [facility] Monocytes/100 WBC Auto (Bld) Ordered By: Gagan Shahid on 01-16-2022 Monocytes/100 WBC (Bld) 9.1 % . [facility] Neutrophils Auto (Bld) [#/Vo l]Ordered By: Gagan Shahid on 01-16-2022 Neutrophils (Bld) [#/Vol] 5.6 10*3/uL 1.8-7.7 [facility] Neutrophils/100 WBC Auto (Bl d)Ordered By: Gagan Shahid on 01-16-2022 Neutrophils/100 WBC (Bld) 68.5 % . [facility] No Panel InformationOrdered By: Gagan Shahid on 01-16-2022 Bedside Glucose Comment Glu2: cleaned meter [facility] Platelet mean volume Auto (B ld) [Entitic vol]Ordered By: Gagan Shahid on 01-16-2022 Platelet mean volume (Bld) [Entitic vol] 8.4 fL 6.6-10.1 [facility] Platelet poor plasma interna tional normalized ratio (INR) by coagulation assay (relatOrdered By: Gagan Shahid on 01-16-2022 INR Coag (PPP) [Relative time] 1.4 {INR} [facility] Comment on above: INR Therapeutic [...] 01-16-2022 Platelets (Bld) [#/Vol] 178 10*3/uL 150-450 [facility] RBC Auto (Bld) [#/Vol]Ordere d By: Gagan Shahid on 01-16-2022 RBC (Bld) [#/Vol] 4.90 10*6/uL 3.90-5.60 [facility] Serum or plasma creatine kin ase MB (CKMB)/total creatine kinase (CK) ratio by calculaOrdered By: Gagan Shahid on 01-16-2022 CK.MB Calc [Catalytic fraction] 3.2 % 0.00-2.50 [facility] Serum or plasma creatine kin ase MB measurement (mass/volume)Ordered By: Gagan Shahid on 01-16-2022 CK.MB [Mass/Vol] 3.0 ng/mL 0.6-6.3 [facility] Troponin I.cardiac [Mass/vol ume] in Serum or Plasma by High sensitivity methodOrdered By: Gagan Shahid on 01-16-2022 Troponin I.cardiac High sensitivity method [Mass/Vol] 525 pg/mL 0-20 [facility] Comment on above: Critical valueresult calledat 1844 on 01/16/22 BNPon 01-15-2022 Natriuretic peptide B (Bld) [Mass/Vol] 1012.0 pg/mL Critically high <=900.0 [facility] Comment on above: Performed By: #### B LENGTH CONTROL TESTER #### [facility] [address] [place] [address] Dr. Mirza Sadler CARDIAC PARUL ADMITon 022 CK [Catalytic activity/Vol] 93 U/L Normal 39-308 [facility] Comment on above: Performed By: #### C TEGAN MARIN #### [facility] [address] [place] [address] Dr. Mirza Sadler CK.MB [Mass/Vol] 1.67 ng/mL Normal <=3.60 [facility] Comment on above: Performed By: #### TEGAN Hoskins MP #### [facility] [address] [place] [address] Dr. Mirza Sadler HSTROP 17.1 pg/mL Normal 4.0-76.[address] [facility] Comment on above: Result Comment: CUT- OFF POINTS HAVE BEEN ESTABLISHED BASED ON THE FOURTH UNIVERSAL DEFINITIONS OF MYOCARDIAL INFARCTION. THE UPPER REFERENCE LIMIT (URL) OF TROPONIN, DEFINED THE 99TH PERCENTILE OF cTnI DISTRIBUTION IN A REFERENCE POPULATION, HAS BEEN CONFIRMED THE DECISION THRESHOLD FOR [place] DIAGNOSIS. Performed By: #### C TEGAN MARIN #### [facility] [address] [place] [address] Dr. Mirza Sadler RACHEL 63 ng/mL Normal 16-[address] [facility] Comment on above: Performed By: #### C TEGAN MARIN #### [facility] [address] [place] [address] Dr. Mirza Sadler CBC AUTO DIFFon 01-15-2022 BASO # 0.1 103/ul Normal 0.0-0.1 [facility] Comment on above: Performed By: #### E RUR #### [facility] [address] [place] [address] Dr. Mirza Sadler Basophils/100 WBC (Bld) 0.9 % Normal 0.2-2.0 [facility] Comment on above: Performed By: #### E RUR #### [facility] [address] [place] [address] Dr. Mirza Sadler EO # 0.3 103/ul Normal 0.0-0.[address] [facility] Comment on above: Performed By: #### E RUR #### [facility] [address] [place] [address] Dr. Mirza Sadler Eosinophils/100 WBC (Bld) 3.1 % Normal 0.9-7.0 [facility] Comment on above: Performed By: #### E RUR #### [facility] [address] [place] [address] Dr. Mirza Sadler Erythrocyte distribution width (RBC) [Ratio] 14.2 % Normal 11.0-15.0 [facility] Comment on above: Performed By: #### E RUR #### [facility] [address] [place] [address] Dr. Mirza Sadler Hematocrit (Bld) [Volume fraction] 44.4 % Normal 42.0-54.0 [facility] Comment on above: Performed By: #### E RUR #### [facility] [address] [place] [address] Dr. Mirza Sadler Hemoglobin (Bld) [Mass/Vol] 14.4 g/dL Normal 14.0-18.0 [facility] Comment on above: Performed By: #### E RUR #### [facility] [address] [place] [address] Dr. Mirza Sadler IG # 0.03 10e3/ul Normal 0.00-0.[address] [facility] Comment on above: Performed By: #### E RUR #### [facility] [address] [place] [address] Dr. Mirza Sadler IG % 0.3 % Normal 0.0-0.[address] [facility] Comment on above: Performed By: #### E RUR #### [facility] [address] [place] [address] Dr. Mirza Sadler LYMPH # 1.6 103/ul Normal 1.2-3.[address] [facility] Comment on above: Performed By: #### E RUR #### [facility] [address] [place] [address] Dr. Mirza Sadler Lymphocytes/100 WBC (Bld) 16.8 % Critically low 20.5-60.0 [facility] Comment on above: Performed By: #### E RUR #### [facility] [address] [place] [address] Dr. Mirza Sadler MANUAL DIFF REQ NO Normal [facility] Comment on above: Performed By: #### E RUR #### [facility] [address] [place] [address] Dr. Mirza Sadler MCH (RBC) [Entitic mass] 29.4 pg Normal 25.9-34.0 [facility] Comment on above: Performed By: #### E RUR #### [facility] [address] [place] [address] Dr. Mirza Sadler MCHC (RBC) [Mass/Vol] 32.4 g/dL Normal 29.9-35.2 [facility] Comment on above: Performed By: #### E RUR #### [facility] [address] [place] [address] Dr. Mirza Sadler MCV (RBC) [Entitic vol] 90.6 fL Normal 80.0-94.[address] [facility] Comment on above: Performed By: #### E RUR #### [facility] [address] [place] [address] Dr. Mirza Sadler MONO # 0.5 103/ul Normal 0.3-0.[address] [facility] Comment on above: Performed By: #### E RUR #### [facility] [address] [place] [address] Dr. Mirza Sadler Monocytes/100 WBC (Bld) 5.9 % Normal 1.7-12.0 [facility] Comment on above: Performed By: #### E RUR #### [facility] [address] [place] [address] Dr. Mirza Sadler NEUT # 6.7 103/ul Critically high 1.4-6.5 [facility] Comment on above: Performed By: #### E RUR #### [facility] [address] [place] [address] Dr. Mirza Sadler Neutrophils/100 WBC (Bld) 73.0 % Normal 43.0-75.0 [facility] Comment on above: Performed By: #### E RUR #### [facility] [address] [place] [address] Dr. Mirza Sadler Platelet mean volume (Bld) [Entitic vol] 10.0 fL Normal 9.5-13.[address] [facility] Comment on above: Performed By: #### E RUR #### [facility] [address] [place] [address] Dr. Mirza Sadler PLT 190 103/ul Normal 150-[address] [facility] Comment on above: Performed By: #### E RUR #### [facility] [address] [place] [address] Dr. Mirza Sadler RBC 4.90 106/ul Normal 4.70-6.[address] [facility] Comment on above: Performed By: #### E RUR #### [facility] [address] [place] [address] Dr. Mirza Sadler WBC 9.2 103/ul Normal 4.0-11.[address] [facility] Comment on above: Performed By: #### E RUR #### [facility] [address] [place] [address] CHEST WO CONon [...] Date: 2022-01-15 08:19 Normal [facility] CULTURE BLOODon 01-15-2022 Microscopic examination of blood, culture Culture Observations: NO GROWTH AT 5 DAYS. Normal [facility] Comment on above: Performed By: #### H STROPN #### [facility] [address] [place] [address] Dr. Mirza Sadler Microscopic examination of blood, culture Culture Observations: NO GROWTH AT 5 DAYS. Normal [facility] Comment on above: Performed By: #### B LDCX1 #### [facility] [address] [address] [address] Mirza Sadler [facility]30 SARS-CoV-2 (COVID-19) RNA RAMO+probe Ql (Unsp spec) Not detected Normal NOT DETECTED [facility] Comment on above: Result Comment: When [...] for this test is supported by the [place] of [employer] and Human Service's declaration that [...] longer be used). Performed By: #### B LENGTH CONTROL TESTER #### [facility] [address] [place] [address] Dr. Mirza Sadler ER URINE PROFILEon 2 Bilirubin Ql (U) Negative Normal NEGATIVE [facility] Comment on above: Performed By: #### C TANIA, CMADM #### [facility] [address] [place] [address] Dr. Mirza Sadler Clarity (U) CLEAR Normal CLEAR [facility] Comment on above: Performed By: #### C TANIA, CMADM #### [facility] [address] [place] [address] Dr. Mirza Sadler Color (U) LT. YELLOW Normal YELLOW [facility] Comment on above: Performed By: #### C TANIA, CMADM #### [facility] [address] [place] [address] Dr. Miraz Sadler ERUSENIAD A micrscopic examina tion will be performed if indicated. Normal [facility] Comment on above: Performed By: #### C MP, CMADM #### [facility] [address] [place] [address] Dr. Mirza Sadler Glucose Ql (U) >[address] [facility] Comment on above: Performed By: #### C MP, CMADM #### [facility] [address] [place] [address] Dr. Mirza Sadler Hemoglobin Ql (U) Negative Normal NEGATIVE [facility] Comment on above: Performed By: #### C MP, CMADM #### [facility] [address] [address] [address] Mirza Sadler Ketones Ql (U) TRACE Abnormal NEGATIVE [facility] Comment on above: Performed By: #### C TANIA, CMADM #### [facility] [address] [address] [address] Mirza Sadler LEUKOCYTES Negative Normal NEGATIVE [facility] Comment on above: Performed By: #### C TANIA, CMADM #### [facility] [address] [address] [address] Mirza Sadler Nitrite Ql (U) Negative Normal NEGATIVE [facility] Comment on above: Performed By: #### C TAINA, CMADM #### [facility] [address] [place] [address] Dr. Mirza Sadler pH (U) 5.5 [pH] Normal 5-9 [facility] Comment on above: Performed By: #### C TANIA, CMADM #### [facility] [address] [place] [address] Dr. Mirza Sadler SPEC GRAVITY 1.020 Normal 1.005-<=1. 025 [facility] Comment on above: Performed By: #### C DOM MARINDM #### [facility] [address] [place] [address] Dr. Mirza Sadler UA PROTEIN TRACE Normal NEGATIVE/ TRACE [facility] Comment on above: Performed By: #### C TANIA, CMADM #### [facility] [address] [place] [address] Dr. Mirza Sadler UR MICRO IND NOT INDICATED Normal [facility] Comment on above: Performed By: #### C TANIA, CMADM #### [facility] [address] [place] [address] Dr. Mirza Sadler Urobilinogen Qn (U) 0.2 {Luisito'U}/dL Normal 0.2 - 1. 0 [facility] Comment on above: Performed By: #### C TANIA, CMADM #### [facility] [address] [place] [address] Dr. Mirza Sadler LACTATE/LACTIC ACIDon 2021 Lactate [Moles/Vol] 0.8 mmol/L Normal 0.4-1.9 [facility] Comment on above: Performed By: #### P T, PTT #### [facility] [address] [address] [address] Mirza Sadler PROF 14(COMP METB)on 022 Albumin [Mass/Vol] 4.4 g/dL Normal 3.4-5.0 [facility] Comment on above: Performed By: #### C MP, CMADM #### [facility] [address] [address] [address] Mirza Sadler Albumin/Globulin [Mass ratio] 1.3 {ratio} Normal [facility] Comment on above: Performed By: #### C MP, CMADM #### [facility] [address] [address] [address] Mirza Sadler ALP [Catalytic activity/Vol] 155 U/L Critically high 46-116 [facility] Comment on above: Performed By: #### C MP, CMADM #### [facility] [address] [address] [address] Mirza Sadler ALT [Catalytic activity/Vol] 27 U/L Normal 16-63 [facility] Comment on above: Performed By: #### C MP, CMADM #### [facility] [address] [address] [address] Mirza Sadler Anion gap [Moles/Vol] 14.9 mmol/L Normal [facility] Comment on above: Performed By: #### C MP, CMADM #### [facility] [address] [address] [address] Mirza Sadler AST [Catalytic activity/Vol] 22 U/L Normal 15-37 [facility] Comment on above: Performed By: #### C MP, CMADM #### [facility] [address] [address] [address] Mirza Sadler Bilirubin [Mass/Vol] 0.8 mg/dL Normal 0.2-1.0 [facility] Comment on above: Performed By: #### C MP, CMADM #### [facility] [address] [address] [address] Mirza Sadler Calcium [Mass/Vol] 8.8 mg/dL Normal 8.5-10.1 [facility] Comment on above: Performed By: #### C MP, CMADM #### [facility] [address] [address] [address] Mirza Sadler Chloride [Moles/Vol] 106 mmol/L Normal 98-107 [facility] Comment on above: Performed By: #### C MP, CMADM #### [facility] [address] [address] [address] Mirza Sadler CO2 [Moles/Vol] 23.9 mmol/L Normal 21.0-32.0 [facility] Comment on above: Performed By: #### C MP, CMADM #### [facility] [address] [address] [address] Mirza Sadler Creatinine [Mass/Vol] 1.51 mg/dL Critically high 0.70-1.30 [facility] Comment on above: Performed By: #### C MP, CMADM #### [facility] [address] [address] [address] Mirza Sadler EGFR-AF GREEK 56 mL/min/1.73m2 Critically low >=60 [facility] Comment on above: Performed By: #### C MP, CMADM #### [facility] [address] [address] [address] Mirza Sadler EGFR-NON AF GREEK 46 mL/min/1.73m2 Critically low >=60 [facility] Comment on above: Performed By: #### C MP, CMADM #### [facility] [address] [address] [address] Mirza Sadler Globulin (S) [Mass/Vol] 3.4 g/dL Normal [facility] Comment on above: Performed By: #### C MP, CMADM #### [facility] [address] [address] [address] Mirza Sadler Glucose [Mass/Vol] 189 mg/dL Critically high 74-106 [facility] Comment on above: Performed By: #### C MP, CMADM #### [facility] [address] [address] [address] Mirza Sadler Potassium [Moles/Vol] 3.8 mmol/L Normal 3.5-5.1 [facility] Comment on above: Performed By: #### C MP, CMADM #### [facility] [address] [place] [address] Dr. Mirza Sadler Protein [Mass/Vol] 7.8 g/dL Normal 6.4-8.[address] [facility] Comment on above: Performed By: #### C TANIA, CMADM #### [facility] [address] [place] [address] Dr. Mirza Sadler Sodium [Moles/Vol] 141 mmol/L Normal 136-145 [facility] Comment on above: Performed By: #### C TANIA, CMADM #### [facility] [address] [place] [address] Dr. Mirza Sadler Urea nitrogen [Mass/Vol] 22.0 mg/dL Critically high 7.0-18.0 [facility] Comment on above: Performed By: #### C TANIA, CMADM #### [facility] [address] [place] [address] Dr. Mirza Sadler Urea nitrogen/Creatinine [Mass ratio] 14.6 mg/mg Normal [facility] Comment on above: Performed By: #### C TANIA, CMADM #### [facility] [address] [place] [address] Dr. Mirza Sadler PROTIMEon 01-15-2022 INR Coag (PPP) [Relative time] 1.10 {INR} Normal [facility] Comment on above: Performed By: #### E RUR #### [facility] [address] [place] [address] Dr. Mirza Sadler INR GUIDELINES SEE BELOW Normal [facility] Comment on above: Result Comment: RIVKA RED INR: 2.0 - 3.0 CONDITIONS NOT LISTED BELOW 2.5 - 3.5 FOR PROSTHETIC HEART VALVE REPLACEMENT 2.5 - 3.5 RECURRENT THROMBOSIS Performed By: #### E RUR #### [facility] [address] [address] [address] Mirza Sadler PT Coag (PPP) [Time] 11.8 s Critically high 9.0-11.6 [facility] Comment on above: Performed By: #### E RUR #### [facility] [address] [address] [address] Mirza Sadler PTTon 01-15-2022 aPTT Coag (Bld) [Time] 29.0 s Normal 22.3-36.2 [facility] Comment on above: Performed By: #### E RUR #### [facility] [address] [address] [address] Mirza Sadler TROPONIN, HIGH SENSITIVITYon 01-15-2022 HSTROP 1786.2 pg/mL Critically high 4.0-76.1 [facility] Comment on above: Result Comment: CUT- OFF POINTS HAVE BEEN ESTABLISHED BASED ON THE FOURTH UNIVERSAL DEFINITIONS OF MYOCARDIAL INFARCTION. THE UPPER REFERENCE LIMIT (URL) OF TROPONIN, DEFINED THE 99TH PERCENTILE OF cTnI DISTRIBUTION IN A REFERENCE POPULATION, HAS BEEN CONFIRMED THE DECISION THRESHOLD FOR [place] DIAGNOSIS. Performed By: #### H STROPN #### [facility] [address] [address] [address] Mirza Sadler HSTROP 669.3 pg/mL Critically high 4.0-76.1 [facility] Comment on above: Result Comment: CUT- OFF POINTS HAVE BEEN ESTABLISHED BASED ON THE FOURTH UNIVERSAL DEFINITIONS OF MYOCARDIAL INFARCTION. THE UPPER REFERENCE LIMIT (URL) OF TROPONIN, DEFINED THE 99TH PERCENTILE OF cTnI DISTRIBUTION IN A REFERENCE POPULATION, HAS BEEN CONFIRMED THE DECISION THRESHOLD FOR [place] DIAGNOSIS. Performed By: #### H STROPN #### [facility] [address] [address] [address] Mirza Sadler XR CHEST 1 Von [...] Date: 2022-01-15 06:42 Normal [address] [facility] A1C HEMOGLOBINon 12-18-2021 HbA1c (Bld) [Mass fraction] 6.2 % [employer] Other Glucose - FINGER STICKon Glucose [Mass/Vol] 120 mg/dL [employer] Other HbA1c (Bld) [Mass fraction]o n 12-18-2021 A1C HEMOGLOBIN [employer] Other XR CHEST 2 Von 12-08-2021 XR [...] Date: 2021-12-08 16:07 Normal [facility] PTH INTACTon 12-01-2021 PTH, Intact 15 pg/mL Normal 15-[address] [facility] Comment on above: Performed By: #### C , [facility] #### [facility] [address] [place] [address] Dr. Mirza Sadler VIT D 25-OH [employer]ABC[employer]on 2021 Vitamin D, 25-Hydroxy 41.2 ng/mL Normal 30.0-100.0 [facility] Comment on above: Result Comment: Cielo min D deficiency has been defined by the [place] of [employer] and an Endocrine Society practice guideline as a level of serum 25-OH vitamin D less than 20 ng/mL (1,2). The Endocrine Society went on to further define vitamin D insufficiency as a level between 21 and 29 ng/mL (2). 1. IOM ([place] of [employer]). 2010. Dietary reference intakes for calcium and D. [place]: The National Academies Press. 2. Noemy MF, Sonam [place], Jake HERMOSILLO, et al. Evaluation, treatment, and prevention of vitamin D deficiency: an Endocrine Society clinical practice guideline. JCEM. 2010; 96(7):1911-30. Performed By: #### P T, PTT #### [facility] [address] [place] [address] Dr. Mirza Sadler HEMOGRAM AND PLATELon 2021 Hematocrit (Bld) [Volume fraction] 39.9 % Critically low 42.0-54.0 [facility] Comment on above: Performed By: #### P T, PTT #### [facility] [address] [place] [address] Dr. Mirza Sadler Hemoglobin (Bld) [Mass/Vol] 13.1 g/dL Critically low 14.0-18.[address] [facility] Comment on above: Performed By: #### P T, PTT #### [facility] [address] [place] [address] Dr. Mirza Sadler MCH (RBC) [Entitic mass] 29.5 pg Normal 25.9-34.0 [facility] Comment on above: Performed By: #### P T, PTT #### [facility] [address] [place] [address] Dr. Mirza Sadler MCHC (RBC) [Mass/Vol] 32.8 g/dL Normal 29.9-35.[address] [facility] Comment on above: Performed By: #### P T, PTT #### [facility] [address] [place] [address] Dr. Mirza Sadler MCV (RBC) [Entitic vol] 89.9 fL Normal 80.0-94.0 [facility] Comment on above: Performed By: #### P T, PTT #### [facility] [address] [address] [address] Mirza Sadler PLT 182 103/ul Normal 150-[address] [facility] Comment on above: Performed By: #### P T, PTT #### [facility] [address] [place] [address] Dr. Mirza Sadler RBC 4.44 106/ul Critically low 4.70-6.10 [facility] Comment on above: Performed By: #### P T, PTT #### [facility] [address] [place] [address] Dr. Mirza Sadler WBC 6.9 103/ul Normal 4.0-11.[address] [facility] Comment on above: Performed By: #### P T, PTT #### [facility] [address] [place] [address] Dr. Mirza Sadler MAGNESIUMon 11-30-2021 Magnesium [Mass/Vol] 1.8 mg/dL Normal 1.8-2.[address] [facility] Comment on above: Performed By: #### P T, PTT #### [facility] [address] [place] [address] Dr. Mirza Sadler RENAL FUNCTION PANELon 11-30 Albumin [Mass/Vol] 3.9 g/dL Normal 3.4-5.[address] [facility] Comment on above: Performed By: #### P T, PTT #### [facility] [address] [place] [address] Dr. Mirza Sadler Calcium [Mass/Vol] 9.0 mg/dL Normal 8.5-10.[address] [facility] Comment on above: Performed By: #### P T, PTT #### [facility] [address] [place] [address] Dr. Mirza Sadler Chloride [Moles/Vol] 107 mmol/L Normal 98-[address] [facility] Comment on above: Performed By: #### P T, PTT #### [facility] [address] [place] [address] Dr. Mirza Sadler CO2 [Moles/Vol] 26.2 mmol/L Normal 21.0-32.0 [facility] Comment on above: Performed By: #### P T, PTT #### [facility] [address] [address] [address] Mirza Sadler Creatinine [Mass/Vol] 1.55 mg/dL Critically high 0.70-1.30 [facility] Comment on above: Performed By: #### P T, PTT #### [facility] [address] [address] [address] Mirza Sadler EGFR-AF GREEK 54 mL/min/1.73m2 Critically low >=60 [facility] Comment on above: Performed By: #### P T, PTT #### [facility] [address] [address] [address] Mirza Sadler EGFR-NON AF GREEK 45 mL/min/1.73m2 Critically low >=60 [facility] Comment on above: Performed By: #### P T, PTT #### [facility] [address] [address] [address] Mirza Sadler Glucose [Mass/Vol] 166 mg/dL Critically high 74-106 [facility] Comment on above: Performed By: #### P T, PTT #### [facility] [address] [address] [address] Mirza Sadler Phosphate [Mass/Vol] 3.7 mg/dL Normal 2.6-4.7 [facility] Comment on above: Performed By: #### P T, PTT #### [facility] [address] [address] [address] Mirza Sadler Potassium [Moles/Vol] 4.2 mmol/L Normal 3.5-5.1 [facility] Comment on above: Performed By: #### P T, PTT #### [facility] [address] [address] [address] Mirza Sadler Sodium [Moles/Vol] 142 mmol/L Normal 136-145 [facility] Comment on above: Performed By: #### P T, PTT #### [facility] [address] [address] [address] Mirza Sadler Urea nitrogen [Mass/Vol] 16.0 mg/dL Normal 7.0-18.0 [facility] Comment on above: Performed By: #### P T, PTT #### [facility] [address] [place] [address] Dr. Mirza Sadler UA RANDOM W/MICROSCOPICon BACTERIA NONE SEEN Normal NONE SEEN [facility] Comment on above: Performed By: #### B LDCX2 #### [facility] [address] [place] [address] Dr. Mirza Sadler Bilirubin Ql (U) Negative Normal NEGATIVE [facility] Comment on above: Performed By: #### B LDCX2 #### [facility] [address] [place] [address] Dr. Mirza Sadler CAST NONE SEEN Normal NONE SEEN [facility] Comment on above: Performed By: #### B LDCX2 #### [facility] [address] [place] [address] Dr. Mirza Sadler Clarity (U) CLEAR Normal CLEAR [facility] Comment on above: Performed By: #### B LDCX2 #### [facility] [address] [place] [address] Dr. Mirza Sadler Color (U) LT. YELLOW Normal YELLOW [facility] Comment on above: Performed By: #### B LDCX2 #### [facility] [address] [place] [address] Dr. Mirza Sadler Crystals LM Nom (Urine sed) NONE SEEN Normal NONE SEEN [facility] Comment on above: Performed By: #### B LDCX2 #### [facility] [address] [place] [address] Dr. Mirza Sadler Epithelial cells LM Ql (Urine sed) RARE Normal NONE SEEN /RARE [facility] Comment on above: Performed By: #### B LDCX2 #### [facility] [address] [place] [address] Dr. Mirza Sadler Glucose Ql (U) >[address] [facility] Comment on above: Performed By: #### B LDCX2 #### [facility] [address] [place] [address] Dr. Mirza Sadler Hemoglobin Ql (U) Negative Normal NEGATIVE [facility] Comment on above: Performed By: #### B LDCX2 #### [facility] [address] [address] [address] Mirza Sadler Ketones Ql (U) Negative Normal NEGATIVE [facility] Comment on above: Performed By: #### B LDCX2 #### [facility] [address] [place] [address] Dr. Mirza Sadler LEUKOCYTES Negative Normal NEGATIVE [facility] Comment on above: Performed By: #### B LDCX2 #### [facility] [address] [place] [address] Dr. Mirza Sadler MUCOUS NONE SEEN Normal NONE SEEN [facility] Comment on above: Performed By: #### B LDCX2 #### [facility] [address] [place] [address] Dr. Mirza Sadler Nitrite Ql (U) Negative Normal NEGATIVE [facility] Comment on above: Performed By: #### B LDCX2 #### [facility] [address] [place] [address] Dr. Mirza Sadler pH (U) 5.5 [pH] Normal 5-[address] [facility] Comment on above: Performed By: #### B LDCX2 #### [facility] [address] [place] [address] Dr. Mizra Sadler RBC NONE SEEN Abnormal 0-2 [facility] Comment on above: Performed By: #### B LDCX2 #### [facility] [address] [place] [address] Dr. Mirza Sadler SPEC GRAVITY 1.015 Normal 1.005-<=1. 025 [facility] Comment on above: Performed By: #### B LDCX2 #### [facility] [address] [place] [address] Dr. Mirza Sadler UA PROTEIN Negative Normal NEGATIVE/ TRACE [facility] Comment on above: Performed By: #### B LDCX2 #### [facility] [address] [place] [address] Dr. Mirza Sadler Urobilinogen Qn (U) 0.2 {Luisito'U}/dL Normal 0.2 - 1. 0 [facility] Comment on above: Performed By: #### B LDCX2 #### [facility] [address] [address] [address] Mirza Sadler WBC NONE SEEN Normal NONE SEEN [facility] Comment on above: Performed By: #### B LDCX2 #### [facility] [address] [address] [address] Mirza Sadler URINE T PROTEIN CREAT RATIOo n 11-30-2021 Protein (U) [Mass/Vol] 22.4 mg/dL Critically high <=12.0 [facility] Comment on above: Performed By: #### U RTPCR #### [facility] [address] [address] [address] Mirza Sadler UR PROT CREAT RAT 0.31 Normal [facility] Comment on above: Performed By: #### U RTPCR #### [facility] [address] [address] [address] Mirza Sadler URINE CREAT 73.05 mg/dL Normal 20.00-300. 00 [facility] Comment on above: Performed By: #### U RTPCR #### [facility] [address] [address] [address] Mirza Sadler NM HEPATOBILIARY SCAN W [...] Date: 2021-11-24 11:55 Normal [address] [facility] BNPon 10-27-2021 Natriuretic peptide B (Bld) [Mass/Vol] 574.0 pg/mL Normal <=900.[address] [facility] Comment on above: Performed By: #### P T, PTT #### [facility] [address] [place] [address] Dr. Mirza Sadler CARDIAC PARUL ADMITon 022 CK [Catalytic activity/Vol] 70 U/L Normal 39-[address] [facility] Comment on above: Performed By: #### P T, PTT #### [facility] [address] [place] [address] Dr. Mirza Sadler CK.MB [Mass/Vol] 1.10 ng/mL Normal <=3.60 [facility] Comment on above: Performed By: #### P T, PTT #### [facility] [address] [place] [address] Dr. Mirza Sadler HSTROP 22.3 pg/mL Normal 4.0-76.[address] [facility] Comment on above: Result Comment: CUT- OFF POINTS HAVE BEEN ESTABLISHED BASED ON THE FOURTH UNIVERSAL DEFINITIONS OF MYOCARDIAL INFARCTION. THE UPPER REFERENCE LIMIT (URL) OF TROPONIN, DEFINED THE 99TH PERCENTILE OF cTnI DISTRIBUTION IN A REFERENCE POPULATION, HAS BEEN CONFIRMED THE DECISION THRESHOLD FOR [place] DIAGNOSIS. Performed By: #### P T, PTT #### [facility] [address] [place] [address] Dr. Mirza Sadler RACHEL 81 ng/mL Normal 16-[address] [facility] Comment on above: Performed By: #### P T, PTT #### [facility] [address] [place] [address] Dr. Mirza Sadler CBC AUTO DIFFon 10-27-2021 BASO # 0.1 103/ul Normal 0.0-0.1 [facility] Comment on above: Performed By: #### E RUR #### [facility] [address] [place] [address] Dr. Mirza Sadler Basophils/100 WBC (Bld) 0.4 % Normal 0.2-2.[address] [facility] Comment on above: Performed By: #### E RUR #### [facility] [address] [address] [address] Mirza Sadler EO # 0.1 103/ul Normal 0.0-0.7 [facility] Comment on above: Performed By: #### E RUR #### [facility] [address] [place] [address] Dr. Mirza Sadler Eosinophils/100 WBC (Bld) 0.4 % Critically low 0.9-7.0 [facility] Comment on above: Performed By: #### E RUR #### [facility] [address] [place] [address] Dr. Mirza Sadler Erythrocyte distribution width (RBC) [Ratio] 14.1 % Normal 11.0-15.0 [facility] Comment on above: Performed By: #### E RUR #### [facility] [address] [place] [address] Dr. Mirza Sadler Hematocrit (Bld) [Volume fraction] 41.0 % Critically low 42.0-54.0 [facility] Comment on above: Performed By: #### E RUR #### [facility] [address] [place] [address] Dr. Mirza Sadler Hemoglobin (Bld) [Mass/Vol] 14.1 g/dL Normal 14.0-18.0 [facility] Comment on above: Performed By: #### E RUR #### [facility] [address] [place] [address] Dr. Mirza Sadler IG # 0.05 10e3/ul Critically high 0.00-0.03 [facility] Comment on above: Performed By: #### E RUR #### [facility] [address] [place] [address] Dr. Mirza Sadler IG % 0.4 % Normal 0.0-0.5 [facility] Comment on above: Performed By: #### E RUR #### [facility] [address] [place] [address] Dr. Mirza Sadler LYMPH # 0.9 103/ul Critically low 1.2-3.[address] [facility] Comment on above: Performed By: #### E RUR #### [facility] [address] [address] [address] Mirza Sadler Lymphocytes/100 WBC (Bld) 6.6 % Critically low 20.5-60.0 [facility] Comment on above: Performed By: #### E RUR #### [facility] [address] [place] [address] Dr. Mirza Sadler MANUAL DIFF REQ NO Normal [facility] Comment on above: Performed By: #### E RUR #### [facility] [address] [place] [address] Dr. Mirza Sadler MCH (RBC) [Entitic mass] 29.7 pg Normal 25.9-34.0 [facility] Comment on above: Performed By: #### E RUR #### [facility] [address] [place] [address] Dr. Mirza Sadler MCHC (RBC) [Mass/Vol] 34.4 g/dL Normal 29.9-35.2 [facility] Comment on above: Performed By: #### E RUR #### [facility] [address] [place] [address] Dr. Mirza Sadler MCV (RBC) [Entitic vol] 86.3 fL Normal 80.0-94.0 [facility] Comment on above: Performed By: #### E RUR #### [facility] [address] [place] [address] Dr. Mirza Sadler MONO # 0.4 103/ul Normal 0.3-0.8 [facility] Comment on above: Performed By: #### E RUR #### [facility] [address] [place] [address] Dr. Mirza Sadler Monocytes/100 WBC (Bld) 2.6 % Normal 1.7-12.[address] [facility] Comment on above: Performed By: #### E RUR #### [facility] [address] [place] [address] Dr. Mirza Sadler NEUT # 12.2 103/ul Critically high 1.4-6.5 [facility] Comment on above: Performed By: #### E RUR #### [facility] [address] [place] [address] Dr. Mirza Sadler Neutrophils/100 WBC (Bld) 89.6 % Critically high 43.0-75.0 [facility] Comment on above: Performed By: #### E RUR #### [facility] [address] [place] [address] Dr. Mirza Sadler Platelet mean volume (Bld) [Entitic vol] 9.7 fL Normal 9.5-13.5 [facility] Comment on above: Performed By: #### E RUR #### [facility] [address] [place] [address] Dr. Mirza Sadler PLT 183 103/ul Normal 150-450 [facility] Comment on above: Performed By: #### E RUR #### [facility] [address] [place] [address] Dr. Mirza Sadler RBC 4.75 106/ul Normal 4.70-6.10 [facility] Comment on above: Performed By: #### E RUR #### [facility] [address] [place] [address] Dr. Mirza Sadler WBC 13.7 103/ul Critically high 4.0-11.0 [facility] Comment on above: Performed By: #### E RUR #### [facility] [address] [place] [address] Dr. Mirza Sadler CULTURE BLOODon 10-27-2021 Microscopic examination of blood, culture Culture Observations: NO GROWTH AT 5 DAYS. Normal [facility] Comment on above: Performed By: #### B LDCX2 #### [facility] [address] [place] [address] Dr. Mirza Sadler Performed By: #### H STROPN #### [facility] [address] [place] [address] Dr. Mirza Sadler [facility] SARS-CoV-2 (COVID-19) RNA RAMO+probe Ql (Unsp spec) Not detected Normal NOT DETECTED [facility] Comment on above: Result Comment: When [...] for this test is supported by the Gear Inspector of Health and Human Service's declaration [...] #### P T, PTT #### [facility] [address] [place] [address] Dr. Mirza Sadler ER URINE PROFILEon 2 Bilirubin Ql (U) Negative Normal NEGATIVE [facility] Comment on above: Performed By: #### H STROPN #### [facility] [address] [place] [address] Dr. Mirza Sadler Clarity (U) CLEAR Normal CLEAR [facility] Comment on above: Performed By: #### H STROPN #### [facility] [address] [place] [address] Dr. Mriza Sadler Color (U) YELLOW Normal YELLOW [facility] Comment on above: Performed By: #### H STROPN #### [facility] [address] [place] [address] Dr. Mirza Sadler ERUAHD A micrscopic examina tion will be performed if indicated. Normal [facility] Comment on above: Performed By: #### H STROPN #### [facility] [address] [place] [address] Dr. Mirza Sadler Glucose Ql (U) >[address] [facility] Comment on above: Performed By: #### H STROPN #### [facility] [address] [address] [address] Mirza Sadler Hemoglobin Ql (U) Negative Normal NEGATIVE [facility] Comment on above: Performed By: #### H STROPN #### [facility] [address] [address] [address] Mirza Sadler Ketones Ql (U) TRACE Abnormal NEGATIVE [facility] Comment on above: Performed By: #### H STROPN #### [facility] [address] [place] [address] Dr. Mirza Sadler LEUKOCYTES Negative Normal NEGATIVE [facility] Comment on above: Performed By: #### H STROPN #### [facility] [address] [place] [address] Dr. Mirza Sadler Nitrite Ql (U) Negative Normal NEGATIVE [facility] Comment on above: Performed By: #### H STROPN #### [facility] [address] [place] [address] Dr. Mirza Sadler pH (U) 5.5 [pH] Normal 5-9 [facility] Comment on above: Performed By: #### H STROPN #### [facility] [address] [place] [address] Dr. Mirza Sadler SPEC GRAVITY 1.010 Normal 1.005-<=1. 025 [facility] Comment on above: Performed By: #### H STROPN #### [facility] [address] [place] [address] Dr. Mirza Sadler UA PROTEIN Negative Normal NEGATIVE/ TRACE [facility] Comment on above: Performed By: #### H STROPN #### [facility] [address] [place] [address] Dr. Mirza Sadler UR MICRO IND NOT INDICATED Normal [facility] Comment on above: Performed By: #### H STROPN #### [facility] [address] [place] [address] Dr. Mirza Sadler Urobilinogen Qn (U) 0.2 {Luisito'U}/dL Normal 0.2 - 1. 0 [facility] Comment on above: Performed By: #### H STROPN #### [facility] [address] [place] [address] Dr. Mirza Sadler INFLUENZA A AND B AGon 10-27 INFLUANEGH SEE BELOW Normal [facility] Comment on above: Result Comment: Nega tive for Flu A protein angiten. Infection due to Flu A cannot be ruled out. Flu A angiten in the sample may be below the detection limit of the test. Performed By: #### B LENGTH CONTROL TESTER #### [facility] [address] [place] [address] Dr. Mirza Sadler INFLUBNEGH SEE BELOW Normal [facility] Comment on above: Result Comment: Nega tive for Flu B protein antigen. Infection due to Flu B cannot be ruled out. Flu B antigen in the sample may be below the detection limit of the test. Performed By: #### B LENGTH CONTROL TESTER #### [facility] [address] [place] [address] Dr. Mirza Sadler INFLUENZA A AG Negative Normal NEGATIVE SEE COMMENT [facility] Comment on above: Performed By: #### B LENGTH CONTROL TESTER #### [facility] [address] [place] [address] Dr. Mirza Sadler INFLUENZA B AG Negative Normal NEGATIVE SEE COMMENT [facility] Comment on above: Performed By: #### B LENGTH CONTROL TESTER #### [facility] [address] [place] [address] Dr. Mirza Sadler INTERNAL CONTROLS Within Normal Limits Normal Wi thin Normal Limits [facility] Comment on above: Performed By: #### B LENGTH CONTROL TESTER #### [facility] [address] [place] [address] Dr. Mirza Sadler LACTATE/LACTIC ACIDon 2021 Lactate [Moles/Vol] 1.8 mmol/L Normal 0.4-1.9 [facility] [facility] Comment on above: Performed By: #### C MP, CMADM #### [facility] [address] [place] [address] Dr. Mirza Sadler LIPASEon 10-27-2021 Lipase [Catalytic activity/Vol] 87.0 U/L Normal 73.0-393.0 [facility] Comment on above: Performed By: #### P T, PTT #### [facility] [address] [place] [address] Dr. Mirza Sadler PH VENOUS BLOODon 10-27-2021 PCO2 VENOUS 37.6 mmHg Critically low 40.0-52.0 [facility] Comment on above: Performed By: #### P T, PTT #### [facility] [address] [address] [address] Mirza Sadler pH VENOUS 7.422 Normal 7.330-7.43 0 [facility] Comment on above: Performed By: #### P T, PTT #### [facility] [address] [address] [address] Mirza Sadler PROF 14(COMP METB)on 022 Albumin [Mass/Vol] 4.2 g/dL Normal 3.4-5.0 [facility] Comment on above: Performed By: #### P T, PTT #### [facility] [address] [place] [address] Dr. Mirza Sadler Albumin/Globulin [Mass ratio] 1.3 {ratio} Normal [facility] Comment on above: Performed By: #### P T, PTT #### [facility] [address] [address] [address] Mirza Sadler ALP [Catalytic activity/Vol] 121 U/L Critically high 46-116 [facility] Comment on above: Performed By: #### P T, PTT #### [facility] [address] [address] [address] Mirza Sadler ALT [Catalytic activity/Vol] 22 U/L Normal 16-63 [facility] Comment on above: Performed By: #### P T, PTT #### [facility] [address] [address] [address] Mirza Sadler Anion gap [Moles/Vol] 16.0 mmol/L Normal [facility] Comment on above: Performed By: #### P T, PTT #### [facility] [address] [address] [address] Mirza Sadler AST [Catalytic activity/Vol] 18 U/L Normal 15-37 [facility] Comment on above: Performed By: #### P T, PTT #### [facility] [address] [address] [address] Mirza Sadler Bilirubin [Mass/Vol] 1.3 mg/dL Critically high 0.2-1.0 [facility] Comment on above: Performed By: #### P T, PTT #### [facility] [address] [address] [address] Mirza Sadler Calcium [Mass/Vol] 8.9 mg/dL Normal 8.5-10.1 [facility] Comment on above: Performed By: #### P T, PTT #### [facility] [address] [address] [address] Mirza Sadler Chloride [Moles/Vol] 105 mmol/L Normal 98-107 [facility] Comment on above: Performed By: #### P T, PTT #### [facility] [address] [place] [address] Dr. Mirza Sadler CO2 [Moles/Vol] 23.7 mmol/L Normal 21.0-32.0 [facility] Comment on above: Performed By: #### P T, PTT #### [facility] [address] [place] [address] Dr. Mirza Sadler Creatinine [Mass/Vol] 1.79 mg/dL Critically high 0.70-1.30 [facility] Comment on above: Performed By: #### P T, PTT #### [facility] [address] [place] [address] Dr. Mirza Sadler EGFR-AF GREEK 46 mL/min/1.73m2 Critically low >=[address] [facility] Comment on above: Performed By: #### P T, PTT #### [facility] [address] [place] [address] Dr. Mirza Sadler EGFR-NON AF GREEK 38 mL/min/1.73m2 Critically low >=60 [facility] Comment on above: Performed By: #### P T, PTT #### [facility] [address] [place] [address] Dr. Mirza Sadler Globulin (S) [Mass/Vol] 3.3 g/dL Normal [facility] Comment on above: Performed By: #### P T, PTT #### [facility] [address] [address] [address] Mirza Sadler Glucose [Mass/Vol] 195 mg/dL Critically high 74-106 [facility] Comment on above: Performed By: #### P T, PTT #### [facility] [address] [address] [address] Mirza Sadler Potassium [Moles/Vol] 3.7 mmol/L Normal 3.5-5.1 [facility] Comment on above: Performed By: #### P T, PTT #### [facility] [address] [address] [address] Mirza Sadler Protein [Mass/Vol] 7.5 g/dL Normal 6.4-8.2 [facility] Comment on above: Performed By: #### P T, PTT #### [facility] [address] [address] [address] Mirza Sadler Sodium [Moles/Vol] 141 mmol/L Normal 136-145 [facility] Comment on above: Performed By: #### P T, PTT #### [facility] [address] [address] [address] Mirza Sadler Urea nitrogen [Mass/Vol] 25.0 mg/dL Critically high 7.0-18.0 [facility] Comment on above: Performed By: #### P T, PTT #### [facility] [address] [address] [address] Mirza Sadler Urea nitrogen/Creatinine [Mass ratio] 14.0 mg/mg [facility] Comment on above: Performed By: #### P T, PTT #### [facility] [address] [address] [address] Mirza Sadler PROTIMEon 10-27-2021 INR Coag (PPP) [Relative time] 1.07 {INR} [facility] Comment on above: Performed By: #### P T, PTT #### [facility] [address] [address] [address] Mirza Sadler INR GUIDELINES SEE BELOW Normal [facility] Comment on above: Result Comment: RIVKA RED INR: 2.0 - 3.0 CONDITIONS NOT LISTED BELOW 2.5 - 3.5 FOR PROSTHETIC HEART VALVE REPLACEMENT 2.5 - 3.5 RECURRENT THROMBOSIS Performed By: #### P T, PTT #### [facility] [address] [place] [address] Dr. Mirza Sadler PT Coag (PPP) [Time] 11.5 s Normal 9.0-11.6 [facility] Comment on above: Performed By: #### P T, PTT #### [facility] [address] [place] [address] Dr. Mirza Sadler PTTon 10-27-2021 aPTT Coag (Bld) [Time] 25.1 s Normal 22.3-36.2 [facility] Comment on above: Performed By: #### P T, PTT #### [facility] [address] [place] [address] Dr. Mirza Sadler XR CHEST 1 Von [...] by: GAGAN CAREY Date: 2021-10-27 10:21 Normal [facility] 10-20-2021 [facility] Telephone ([place]AS[place]) ----- LANI LIZAMA ([id number]) 1950 Date Time Provider Department 10/20/21 ABDON [...] Fully Assessed Reason for Visit: Lab Orders [2958] Primary Visit Diagnosis:Monoclonal gammopathy [D47.2] Order(s):CBC + DIFF [SQCBCDIF] Order #: [id number] FUTURE Prescriptions as of 10/24/2021 - famotidine [...] Status:Closed by VEE DAY on 10/24/[address] [facility] [address] ABD/PELVIS WO CONon 10-03 CT ABD/PELVIS WO CON EXAMINATION: CT ABD/PELVIS WO CON HISTORY: Abdominal pain ; acute [...] HIGINIO FLANAGAN Date: 2021-10-03 16:29 Normal [facility] PROF 14(COMP METB)on 022 Albumin [Mass/Vol] 4.1 g/dL Normal 3.4-5.0 [facility] Comment on above: Performed By: #### P T, PTT #### [facility] [address] [place] [address] Dr. Mirza Sadler Albumin/Globulin [Mass ratio] 1.2 {ratio} Normal [facility] Comment on above: Performed By: #### P T, PTT #### [facility] [address] [place] [address] Dr. Mirza Sadler ALP [Catalytic activity/Vol] 132 U/L Critically high 46-116 [facility] Comment on above: Performed By: #### P T, PTT #### [facility] [address] [place] [address] Dr. Mirza Sadler ALT [Catalytic activity/Vol] 30 U/L Normal 16-63 [facility] Comment on above: Performed By: #### P T, PTT #### [facility] [address] [place] [address] Dr. Mirza Sadler Anion gap [Moles/Vol] 10.7 mmol/L Normal [facility] Comment on above: Performed By: #### P T, PTT #### [facility] [address] [place] [address] Dr. Mirza Sadler AST [Catalytic activity/Vol] 21 U/L Normal 15-37 [facility] Comment on above: Performed By: #### P T, PTT #### [facility] [address] [place] [address] Dr. Mirza Sadler Bilirubin [Mass/Vol] 0.7 mg/dL Normal 0.2-1.0 [facility] Comment on above: Performed By: #### P T, PTT #### [facility] [address] [place] [address] Dr. Mirza Sadler Calcium [Mass/Vol] 9.0 mg/dL Normal 8.5-10.1 [facility] Comment on above: Performed By: #### P T, PTT #### [facility] [address] [place] [address] Dr. Mirza Sadler Chloride [Moles/Vol] 106 mmol/L Normal 98-107 [facility] Comment on above: Performed By: #### P T, PTT #### [facility] [address] [address] [address] Mirza Sadler CO2 [Moles/Vol] 27.5 mmol/L Normal 21.0-32.0 [facility] Comment on above: Performed By: #### P T, PTT #### [facility] [address] [address] [address] Mirza Sadler Creatinine [Mass/Vol] 1.77 mg/dL Critically high 0.70-1.30 [facility] Comment on above: Performed By: #### P T, PTT #### [facility] [address] [place] [address] Dr. Mirza Sadler EGFR-AF GREEK 46 mL/min/1.73m2 Critically low >=60 [facility] Comment on above: Performed By: #### P T, PTT #### [facility] [address] [place] [address] Dr. Mirza Sadler EGFR-NON AF GREEK 38 mL/min/1.73m2 Critically low >=60 [facility] Comment on above: Performed By: #### P T, PTT #### [facility] [address] [place] [address] Dr. Mirza Sadler Globulin (S) [Mass/Vol] 3.5 g/dL Normal [facility] Comment on above: Performed By: #### P T, PTT #### [facility] [address] [place] [address] Dr. Mirza Sadler Glucose [Mass/Vol] 135 mg/dL Critically high 74-106 [facility] Comment on above: Performed By: #### P T, PTT #### [facility] [address] [place] [address] Dr. Mirza Sadler Potassium [Moles/Vol] 4.2 mmol/L Normal 3.5-5.1 [facility] Comment on above: Performed By: #### P T, PTT #### [facility] [address] [address] [address] Mirza Sadler Protein [Mass/Vol] 7.6 g/dL Normal 6.4-8.2 [facility] Comment on above: Performed By: #### P T, PTT #### [facility] [address] [address] [address] Mirza Sadler Sodium [Moles/Vol] 140 mmol/L Normal 136-[address] [facility] Comment on above: Performed By: #### P T, PTT #### [facility] [address] [address] [address] Mirza Sadler Urea nitrogen [Mass/Vol] 17.0 mg/dL Normal 7.0-18.0 [facility] Comment on above: Performed By: #### P T, PTT #### [facility] [address] [address] [address] Mirza Sadler Urea nitrogen/Creatinine [Mass ratio] 9.6 mg/mg Normal [facility] Comment on above: Performed By: #### P T, PTT #### [facility] [address] [address] [address] Mirza Sadler US SINGLE QUAD RT [...] by: HIGINIO FLANAGAN Date: 2021-08-27 08:40 Normal [facility] A1C HEMOGLOBINon 07-17-2021 HbA1c (Bld) [Mass fraction] 6.9 % [employer] Other Glucose - FINGER STICKon Glucose [Mass/Vol] 180 mg/dL [employer] Other HbA1c (Bld) [Mass fraction]o n 07-17-2021 A1C HEMOGLOBIN [employer] Other A1C with Estimated Average G luon 04-10-2021 HbA1c (Bld) [Mass fraction] 6.4 % [employer] Other HbA1c (Bld) [Mass fraction] 243 % [employer] Other Glucoseon 04-10-2021 Glucose [Mass/Vol] 243 mg/dL [employer] Other A1C HEMOGLOBINon 01-03-2021 HbA1c (Bld) [Mass fraction] 6.6 % [employer] Other Glucose - FINGER STICKon Glucose [Mass/Vol] 142 mg/dL [employer] Other HbA1c (Bld) [Mass fraction]o n 01-03-2021 A1C HEMOGLOBIN [employer] Other CNPNon 10-27-2020 [facility] Telephone (HEMASA) ----- LANI LIZAMA ([id number]) 1950 M Date Time Provider Department 10/27/20 [...] Status:Closed by ANGELINE WARE on 10/28/20 Normal [facility] Cardiovascular Lab Reporton 10-16-2018 Cardiovascular Lab Report [facility] Patient Name: [facility] MR #: [id number] Physician: Pinky Bishop, Department of M.D. Medicine Service Date: 10/15/2018 Division of Birthdate: 1950 Cardiology Room #: [id number] Adult Cardiovascular Services [place] [address] Cardiovascular Laboratory Report FINAL IMPRESSIONS: 1. Severe three-vessel [place] coronary artery disease. 2. Nxsu-od-kqui bypass grafts patent. 3. Mild in-stent restenosis [...] 4. Follow up with me in the [facility] in the next 4-6 weeks. 5. [...] guidance and using a micropuncture kit. A 6-[place] Glidesheath was inserted without difficulty. Coronary angiography [...] of the vessel. There is evidence of xasp-hs-kwevk collaterals. The distal vessel is supplied via [...] is a long stented segment in the hoasouzn-fj-bugofz portion of the vessel with 30% in-stent restenosis. The vessel distal to the touchdown shows caliber reduction and no discrete stenosis. There is diffuse disease in the branches. Saphenous vein graft to the posterior descending artery. This is widely patent. It shows an extensive stented segment from phlesdgh-zp-cicucvtoti of the vessel. There is a 40%-50% [...] Bishop M.D. Date Trans: 10/16/2018 05:01 Brandie [id number] cc: Harley Crespo D.O. [address] [place] [phone] Normal [facility] BASIC METABOLIC PANELon 09-29 Calcium [Mass/Vol] 8.9 mg/dL Normal 8.6-10.3 [facility] Comment on above: Order Comment: No: D o not add to previous draw Performed By: #### 1 69, [id number] #### [facility] [address] [place] [address], [place] Chloride [Moles/Vol] 110 mmol/L High 98-107 [facility] Comment on above: Order Comment: No: D o not add to previous draw Performed By: #### 1 69, 32238 #### [facility] [address] [place] [address], [place] CO2 [Moles/Vol] 26 mmol/L Normal 21-31 [facility] Comment on above: Order Comment: No: D o not add to previous draw Performed By: #### 1 69, 34109 #### [facility] [address] [place] [address], [place] Creatinine [Mass/Vol] 1.52 mg/dL High 0.70-1.30 [facility] Comment on above: Order Comment: No: D o not add to previous draw Performed By: #### 1 69, 44037 #### [facility] [address] [place] [address], [place] GFR/1.73 sq M predicted among blacks MDRD (S/P/Bld) [Vol rate/Area] 56 ml/min/1.73sq m Abnormal >60 [facility] Comment on above: Order Comment: No: D o not add to previous draw Performed By: #### 1 69, 38357 #### [facility] [address] [place] [address], [place] GFR/1.73 sq M predicted among non-blacks MDRD (S/P/Bld) [Vol rate/Area] 46 ml/min/1.73sq m Abnormal >60 [facility] Comment on above: Order Comment: No: D o not add to previous draw Performed By: #### 1 69, 53785 #### [facility] [address] [place] [address], [place] Glucose [Mass/Vol] 89 mg/dL Normal 70-100 [facility] Comment on above: Order Comment: No: D o not add to previous draw Performed By: #### 1 69, 63268 #### [facility] [address] [place] [address], [place] Potassium [Moles/Vol] 3.9 mmol/L Normal 3.5-5.1 [facility] Comment on above: Order Comment: No: D o not add to previous draw Performed By: #### 1 69, 34030 #### [facility] [address] [place] [address], [place] Sodium [Moles/Vol] 141 mmol/L Normal 136-145 [facility] Comment on above: Order Comment: No: D o not add to previous draw Performed By: #### 1 0070, 62445 #### [facility] [address] [facility]. [address] Urea nitrogen [Mass/Vol] 19 mg/dL Normal 7-25 [facility] Comment on above: Order Comment: No: D o not add to previous draw Performed By: #### 1 0, 33201 #### [facility] [address] [facility] [place] [address], [facility] CBC W/DIFFon 10-15-2018 ABS BASOPHILS 0.1 10*3/uL Normal 0.0-0.2 [facility] Comment on above: Order Comment: No: D o not add to previous draw Performed By: #### 5 0103 #### [facility] [address] ABS IMM GRANS 0.0 10*3/uL Normal 0.0-0.2 [facility] Comment on above: Order Comment: No: D o not add to previous draw Performed By: #### 5 0103 #### [facility] [address] [place] [address], [facility] ABS NEUTROPHILS 3.5 10*3/uL Normal 1.6-7.6 [facility] Comment on above: Order Comment: No: D o not add to previous draw Performed By: #### 5 0103 #### [facility] [address] [place] [address], [facility] Basophils/100 WBC (Bld) 0.8 % Normal 0.0-1.0 [facility] Comment on above: Order Comment: No: D o not add to previous draw Performed By: #### 5 0103 #### [facility] [address] [place] [address], [facility] Eosinophils (Bld) [#/Vol] 0.3 10*3/uL Normal 0.0-0.5 [facility] Comment on above: Order Comment: No: D o not add to previous draw Performed By: #### 5 0103 #### [facility] [address] [place] [address], [facility] Eosinophils/100 WBC (Bld) 3.9 % Normal 0.0-6.0 [facility] Comment on above: Order Comment: No: D o not add to previous draw Performed By: #### 5 0103 #### [facility] [address] [place] [address], [facility] Erythrocyte distribution width (RBC) [Ratio] 13.5 % Normal 11.5-15.0 [facility] Comment on above: Order Comment: No: D o not add to previous draw Performed By: #### 5 0103 #### [facility] [address] [facility] [place] [address], [facility] Hematocrit (Bld) [Volume fraction] 39.7 % Normal 39.0-50.0 [facility] Comment on above: Order Comment: No: D o not add to previous draw Performed By: #### 5 0103 #### [facility] [address] [place] [address], [facility] Hemoglobin (Bld) [Mass/Vol] 13.0 g/dL Normal 13.0-17.0 [facility] Comment on above: Order Comment: No: D o not add to previous draw Performed By: #### 5 3 #### [facility] [address] [place] [address], [facility] IMMATURE GRANS 0.3 % Normal 0.0-1.0 [facility] Comment on above: Order Comment: No: D o not add to previous draw Performed By: #### 5 0103 #### [facility] [address] [place] [address], [facility] Lymphocytes (Bld) [#/Vol] 1.9 10*3/uL Normal 1.2-4.0 [facility] Comment on above: Order Comment: No: D o not add to previous draw Performed By: #### 5 3 #### [facility] [address] [place] [address], [facility] Lymphocytes/100 WBC (Bld) 30.1 % Normal 20.0-45.0 [facility] Comment on above: Order Comment: No: D o not add to previous draw Performed By: #### 5 0103 #### [facility] [address] [place] [address], [facility] MCH (RBC) [Entitic mass] 30.0 pg Normal 27.0-33.0 [facility] Comment on above: Order Comment: No: D o not add to previous draw Performed By: #### 5 0103 #### [facility] [address] [place] [address], [facility] MCHC (RBC) [Mass/Vol] 32.7 g/dL Normal 32.0-35.0 [facility] Comment on above: Order Comment: No: D o not add to previous draw Performed By: #### 5 0103 #### [facility] [address] [place] [address], [facility] MCV (RBC) [Entitic vol] 91.5 fL Normal 82.0-98.0 [facility] Comment on above: Order Comment: No: D o not add to previous draw Performed By: #### 5 0103 #### [facility] [address] [place] [address], [facility] Monocytes (Bld) [#/Vol] 0.7 10*3/uL Normal 0.1-1.0 [facility] Comment on above: Order Comment: No: D o not add to previous draw Performed By: #### 5 0103 #### [facility] [address] [place] [address], [facility] MONOS 10.7 % Normal 5.0-12.0 [facility] Comment on above: Order Comment: No: D o not add to previous draw Performed By: #### 5 0103 #### [facility] [address] [place] [address], [facility] Neutrophils/100 WBC (Bld) 54.2 % Normal 40.0-72.0 [facility] Comment on above: Order Comment: No: D o not add to previous draw Performed By: #### 5 0103 #### [facility] [address] [facility] [place] [address], [facility] Nucleated RBC/100 WBC (Bld) [Ratio] 0 % Normal 0-0 [facility] Comment on above: Order Comment: No: D o not add to previous draw Performed By: #### 5 0103 #### [facility] [address] [facility] [place] [address], [facility] PLAT CNT 164 10*3/uL Normal 150-400 [facility] Comment on above: Order Comment: No: D o not add to previous draw Performed By: #### 5 0103 #### [facility] [address] [facility] [place] [address], [facility] RBC (Bld) [#/Vol] 4.34 10*6/uL Normal 4.20-5.70 [facility] Comment on above: Order Comment: No: D o not add to previous draw Performed By: #### 5 0103 #### [facility] [address] [facility] [place] [address], [facility] WBC (Bld) [#/Vol] 6.38 10*3/uL Normal 4.00-10.60 [facility] Comment on above: Order Comment: No: D o not add to previous draw Performed By: #### 5 0103 #### [facility] [address] [facility]. [place] [id number], [facility] MAGNESIUM BLOODon 10-15-2018 Magnesium [Mass/Vol] 2.0 mg/dL Normal 1.9-2.7 [facility] Comment on above: Order Comment: No: D o not add to previous draw Performed By: #### 1 0070, [id number] #### [facility] [address] PROTHROMBIN TIMEon 9 INR Coag (PPP) [Relative time] 1.11 {INR} Normal 0.91-1.16 [facility] Comment on above: Order Comment: No: D o not add to previous draw Result Comment: ACCC P RECOMMENDED INR FOR WARFARIN THERAPY --------- ------- CONDITION INR PROPHYLAXIS OF VENOUS THROMBOSIS 2-3 (HIGH-RISK SURGERY) TREATMENT OF VENOUS THROMBOSIS 2-3 TREATMENT OF PULMONARY EMBOLISM 2-3 PREVENTION OF SYSTEMIC EMBOLISM: 2-3 ACUTE MYOCARDIAL INFARCTION TISSUE HEART VALVES VALVULAR HEART DISEASE ATRIAL FIBRILLATION RECURRENT SYSTEMIC EMBOLISM MECHANICAL HEART VALVE 2.5-3.5 FROM: ORAL ANTICOAGULANTS. MECHANISM OF ACTION, CLINICAL EFFECTIVENESS, AND OPTIMAL THERAPEUTIC RANGE. CHEST 1995;108:[id number]-246S. Performed By: #### 5 6101 #### [address] PT Coag (PPP) [Time] 14.3 s Normal 12.3-14.8 [facility] [facility] Comment on above: Order Comment: No: D o not add to previous draw Result Comment: ALL RESULTS MUST BE INTERPRETED WITH RESPECT TO BLOOD DRAWING ARTIFACT OR DILUTION ERROR OF ANTICOAGULANT AT THE TIME OF SAMPLING. Performed By: #### [id number] #### [facility] [address] POC GLUCOSE LABon 10-14-2018 Glucose [Mass/Vol] 180 mg/dL High 70-100 [facility] Comment on above: Performed By: #### [id number] #### [facility] 3000 [facility] [place] [address], [facility] Cardiovascular Lab Reporton 02-25-2018 Cardiovascular Lab Report [facility] Patient Name: Lani Lizama [facility] MR #: [id number] Physician: Pinky Bishop Department of M.D. Medicine Service Date: 02/24/2018 Division of Birthdate: 1950 Cardiology Room #: [id number] Adult [facility] Services [address] [place] [address] Cardiovascular Laboratory Report FINAL IMPRESSIONS: 1. 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 2. Severe 3-vessel [place] coronary artery disease. 3. 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 4. Ouwquwtt-ze-eddoty systemic hypertension. RECOMMENDATIONS: 1. Aspirin 81 mg lifelong. 2. Plavix 75 mg daily for a minimum of 6 months, preferably fci. 3. Aggressive cardiovascular risk factor modification. 4. Optimization of medical management; high intensity statin therapy as tolerated, we will switch his Toprol-XL to Coreg 25 mg p.o. b.i.d., and angiotensin-converting enzyme inhibitor. 5. Follow up with me in the [facility] in the next 2-3 weeks. 6. Follow up with Dr. Crespo as scheduled. PROCEDURES: Limited femoral angiography, bilateral selective coronary angiography, saphenous vein graft angiography, angiography of the left internal mammary artery graft, limited angiography of the left subclavian, percutaneous balloon angioplasty, and Synergy drug-eluting stent placement to the saphenous vein graft to the obtuse marginal, placement of a 6-Gabonese MYNXGRIP closure device. METHODS: After risks, benefits, and alternatives were explained, written informed consent was obtained. The patient was prepped and draped in usual sterile fashion over both groins. Using 1% lidocaine solution, local infiltration anesthesia was achieved over the right groin. Using a micropuncture kit, access of the right common femoral artery was obtained. A 6-Gabonese 11 cm sheath was exchanged then without [...] to proceed with an interventional procedure. A 6-Gabonese JR4 guide catheter was advanced in and [...] the procedure. All catheters were removed. A 6-Gabonese MYNXGRIP closure device was deployed per protocol [...] is a 30% touchdown stenosis of the [place] vessel. There is evidence of kfun-ug-lumms collaterals supplying the distal right coronary artery. Limited femoral angiography, this shows mild plaque and anatomy suitable for closure device. INDICATIONS: Unstable angina. Electronically Signed by: Pinky Bishop M.D. 03/06/2018 12:15 P Pinky Bishop M.D. Date Dict: 02/24/2018/01:39 P/Pinky Bishop M.D. Date Trans: 02/25/2018 02:12 Brandie [id number] cc: Harley Crespo D.O. [address] [place] [address] A [facility] [id number] Normal [facility] POC GLUCOSE LABon 02-25-2018 Glucose [Mass/Vol] 150 mg/dL High 70-100 [facility] Comment on above: Performed By: #### [id number] #### [facility] [address] [place] [address], [facility] POC GLUCOSE LABon 02-24-2018 Glucose [Mass/Vol] 192 mg/dL High 70-100 [facility] Comment on above: Performed By: #### [id number] #### [facility] [address] [place] [address], [facility] Glucose [Mass/Vol] 186 mg/dL High 70-100 [facility] Comment on above: Performed By: #### [id number] #### [facility] [address] [place], [place] [id number] [place] [address] Vital Signs Date Time Vital Sign Value Performing Clinician Facility 08-03-2024 [id number] Body height 170.18 cm Harley Ball DO [facility] 08-03-2024 09:28-0400 Body mass index (BMI) [Ratio] 31.8 kg/m2 Harley Ball DO Work Phone[facility] 08-03-2024 09:28-0400 Body weight 92.4 kg Harley Ball DO Work Phone: [facility] 08-03-2024 09:28-0400 Diastolic blood pressure 83 mm[Hg] Harley Ball DO Work Phone: [facility] 08-03-2024 09:28-0400 Heart rate 77 /min Harley Ball DO Work Phone: [facility] 08-03-2024 09:28-0400 Respiratory rate 18 /min Harley Ball DO Work Phone: [facility] 08-03-2024 09:28-0400 SaO2% (BldA) [Mass fraction] 99 % Harley Ball DO Work Phone: [facility] 08-03-2024 09:28-0400 Systolic blood pressure 143 mm[Hg] Harley Ball DO Work Phone: [facility] 07-27-2024 11:29-0400 Diastolic blood pressure 80 mm[Hg] Harley Ball DO Work Phone: [facility] 07-27-2024 11:29-0400 Heart rate 74 /min Harley Ball DO Work Phone: [facility] 07-27-2024 11:29-0400 Systolic blood pressure 143 mm[Hg] Harley Ball DO Work Phone: [facility] 07-27-2024 11:23-0400 Body height 170.18 cm Harley Ball DO Work Phone: [facility] 07-27-2024 11:23-0400 Body mass index (BMI) [Ratio] 28.8 kg/m2 Harley Ball DO Work Phone[facility] 07-27-2024 11:23-0400 Body weight 83.57 kg Harley Ball DO Work Phone: [facility] 07-27-2024 11:23-0400 Respiratory rate 12 /min Harley Ball DO Work Phone: [facility] 07-27-2024 11:23-0400 SaO2% (BldA) [Mass fraction] 100 % Harley Ball DO Work Phone: [facility] 07-14-2024 09:43-0400 Body height 170.18 cm Harley Ball DO Work Phone: [facility] 07-14-2024 09:43-0400 Body mass index (BMI) [Ratio] 28.1 kg/m2 Harley Ball DO Work Phone: [facility] 07-14-2024 09:43-0400 Body weight 81.64 kg Harley Ball DO Work Phone: [facility] 07-14-2024 09:43-0400 Diastolic blood pressure 83 mm[Hg] Harley Ball DO Work Phone: [facility] 07-14-2024 09:43-0400 Heart rate 74 /min Harley Ball DO Work Phone: [facility] 07-14-2024 09:43-0400 Respiratory rate 16 /min Harley Ball DO Work Phone: [facility] 07-14-2024 09:43-0400 SaO2% (BldA) [Mass fraction] 99 % Harley Ball DO Work Phone: [facility] 07-14-2024 09:43-0400 Systolic blood pressure 141 mm[Hg] Harley Ball DO Work Phone: [facility] 04-30-2024 09:42-0500 Body height 170.[address] [facility] 04-30-2024 09:42-0500 Body mass index (BMI) [Ratio] 27.9 kg/m2 [facility] 04-30-2024 09:42-0500 Body weight 80.[address] [facility] 04-30-2024 09:42-0500 Diastolic blood pressure 80 mm[Hg] [facility] 04-30-2024 09:42-0500 Heart rate 81 /min [facility] 04-30-2024 09:42-0500 Respiratory rate 18 /min [facility] 04-30-2024 09:42-0500 SaO2% (BldA) [Mass fraction] 98 % [facility] 04-30-2024 09:42-0500 Systolic blood pressure 134 mm[Hg] [facility] 04-16-2024 08:24-0500 Body height 170.[address] [facility] 04-16-2024 08:24-0500 Body mass index (BMI) [Ratio] 28.2 kg/m2 [facility] 04-16-2024 08:24-0500 Body weight 81.[address] [facility] 04-16-2024 08:24-0500 Diastolic blood pressure 80 mm[Hg] [facility] 04-16-2024 08:24-0500 Heart rate 84 /min [facility] 04-16-2024 08:24-0500 Respiratory rate 12 /min [facility] 04-16-2024 08:24-0500 SaO2% (BldA) [Mass fraction] 97 % [facility] 04-16-2024 08:24-0500 Systolic blood pressure 137 mm[Hg] [facility] 04-02-2024 11:44-0500 Body height 170.2 cm Kenneth Tavera DPM Work Phone: [facility] 04-02-2024 11:44-0500 Body mass index (BMI) [Ratio] 26.78 kg/m2 Kenneth Tavera DPM Work Phone: [facility] 04-02-2024 11:44-0500 Body weight 77.56 kg Kenneth Tavera DPM Work Phone: [facility] 04-02-2024 11:44-0500 Respiratory rate 18 /min Kenneth Tavera DPM Work Phone: [facility] 02-24-2024 09:46-0500 Body height 170.[address] [facility] 02-24-2024 09:46-0500 Body mass index (BMI) [Ratio] 27.1 kg/m2 [facility] 02-24-2024 09:46-0500 Body weight 78.[address] [facility] 02-24-2024 09:46-0500 Diastolic blood pressure 68 mm[Hg] [facility] 02-24-2024 09:46-0500 Heart rate 80 /min [facility] 02-24-2024 09:46-0500 SaO2% (BldA) [Mass fraction] 97 % [facility] 02-24-2024 09:46-0500 Systolic blood pressure 110 mm[Hg] [facility] 01-23-2024 11:29-0400 Body height 170.2 cm Kenneth Tavera DPM Work Phone: [facility] 01-23-2024 11:29-0400 Body mass index (BMI) [Ratio] 26.78 kg/m2 Kenneth Tavera DPM Work Phone: [facility] 01-23-2024 11:29-0400 Body weight 77.56 kg Kenneth Tavera DPM Work Phone: [facility] 01-23-2024 11:29-0400 Diastolic blood pressure 82 mm[Hg] Kenneth Tavera DPM Work Phone: [facility] 01-23-2024 11:29-0400 Heart rate 88 /min Kenneth Tavera DPM Work Phone: [facility] 01-23-2024 11:29-0400 Systolic blood pressure 128 mm[Hg] Kenneth Tavera DPM Work Phone: [facility] 01-23-2024 09:05-0400 Body height 170.[address] [facility] 01-23-2024 09:05-0400 Body mass index (BMI) [Ratio] 27.3 kg/m2 [facility] 01-23-2024 09:05-0400 Body weight 79.[address] [facility] 01-23-2024 09:05-0400 Diastolic blood pressure 71 mm[Hg] [facility] 01-23-2024 09:05-0400 Heart rate 78 /min [facility] 01-23-2024 09:05-0400 Respiratory rate 18 /min [facility] 01-23-2024 09:05-0400 SaO2% (BldA) [Mass fraction] 98 % [facility] 01-23-2024 09:05-0400 Systolic blood pressure 106 mm[Hg] [facility] 01-07-2024 08:26-0400 Body height 170.[address] [facility] 01-07-2024 08:26-0400 Body mass index (BMI) [Ratio] 27.2 kg/m2 [facility] 01-07-2024 08:26-0400 Body temperature 96.7 [degF] [facility] 01-07-2024 08:26-0400 Body weight 78.[address] [facility] 01-07-2024 08:26-0400 Diastolic blood pressure 77 mm[Hg] [facility] 01-07-2024 08:26-0400 Heart rate 91 /min [facility] 01-07-2024 08:26-0400 Respiratory rate 16 /min [facility] 01-07-2024 08:26-0400 SaO2% (BldA) [Mass fraction] 97 % [facility] 01-07-2024 08:26-0400 Systolic blood pressure 123 mm[Hg] [facility] 12-12-2023 08:25-0400 Body height 170.[address] [facility] 12-12-2023 08:25-0400 Body mass index (BMI) [Ratio] 27.4 kg/m2 [facility] 12-12-2023 08:25-0400 Body weight 79.[address] [facility] 12-12-2023 08:25-0400 Diastolic blood pressure 79 mm[Hg] [facility] 12-12-2023 08:25-0400 Heart rate 80 /min [facility] 12-12-2023 08:25-0400 Respiratory rate 12 /min [facility] 12-12-2023 08:25-0400 Systolic blood pressure 127 mm[Hg] [facility] 10-17-2023 09:21-0400 Body height 170.[address] [facility] 10-17-2023 09:21-0400 Body mass index (BMI) [Ratio] 28.2 kg/m2 [facility] 10-17-2023 09:21-0400 Body weight 81.[address] [facility] 10-17-2023 09:21-0400 Diastolic blood pressure 79 mm[Hg] [facility] 10-17-2023 09:21-0400 Heart rate 70 /min [facility] 10-17-2023 09:21-0400 Respiratory rate 18 /min [facility] 10-17-2023 09:21-0400 SaO2% (BldA) [Mass fraction] 97 % [facility] 10-17-2023 09:21-0400 Systolic blood pressure 133 mm[Hg] [facility] 08-12-2023 08:37-0400 Body height 170.[address] [facility] 08-12-2023 08:37-0400 Body mass index (BMI) [Ratio] 27.6 kg/m2 [facility] 08-12-2023 08:37-0400 Body weight 79.[address] [facility] 08-12-2023 08:37-0400 Diastolic blood pressure 84 mm[Hg] [facility] 08-12-2023 08:37-0400 Heart rate 82 /min [facility] 08-12-2023 08:37-0400 Respiratory rate 12 /min [facility] 08-12-2023 08:37-0400 Systolic blood pressure 134 mm[Hg] [facility] 07-02-2023 08:54-0400 Body height 170.[address] [facility] 07-02-2023 08:54-0400 Body mass index (BMI) [Ratio] 27.3 kg/m2 [facility] 07-02-2023 08:54-0400 Body temperature 96.5 [degF] [facility] 07-02-2023 08:54-0400 Body weight 79.[address] [facility] 07-02-2023 08:54-0400 Diastolic blood pressure 79 mm[Hg] [facility] 07-02-2023 08:54-0400 Heart rate 87 /min [facility] 07-02-2023 08:54-0400 Respiratory rate 18 /min [facility] 07-02-2023 08:54-0400 SaO2% (BldA) [Mass fraction] 96 % [facility] 07-02-2023 08:54-0400 Systolic blood pressure 120 mm[Hg] [facility] 06-18-2023 10:51-0400 Body height 170.[address] [facility] 06-18-2023 10:51-0400 Body mass index (BMI) [Ratio] 26.6 kg/m2 [facility] 06-18-2023 10:51-0400 Body weight 77.[address] [facility] 06-18-2023 10:51-0400 Diastolic blood pressure 84 mm[Hg] [facility] 06-18-2023 10:51-0400 Heart rate 95 /min [facility] 06-18-2023 10:51-0400 Respiratory rate 18 /min [facility] 06-18-2023 10:51-0400 SaO2% (BldA) [Mass fraction] 97 % [facility] 06-18-2023 10:51-0400 Systolic blood pressure 127 mm[Hg] [facility] 05-03-2023 09:30-0500 Body height 170.18 cm DO Harley Ball Work Phone: [facility] 05-03-2023 09:30-0500 Body weight 77.29 kg DO Harley Ball Work Phone: [facility] 05-03-2023 09:30-0500 Diastolic blood pressure 85 mm[Hg] DO Harley Ball Work Phone: [facility] 05-03-2023 09:30-0500 Systolic blood pressure 126 mm[Hg] DO Harley Ball Work Phone: [facility] 03-12-2023 11:15-0500 Body height 170.18 cm Tondra Mapus Other [facility] 03-12-2023 11:15-0500 Body mass index (BMI) [Ratio] 27.03 kg/m2 Tondra Mapus Other [facility] [employer] Other 03-12-2023 11:15-0500 Body weight 78.29 kg Tondra Mapus Other [facility] 03-12-2023 11:15-0500 Diastolic blood pressure 79 mm[Hg] Tondra Mapus Other [facility] 03-12-2023 11:15-0500 Respiratory rate 18 /min Tondra Mapus Other [employer] Other 03-12-2023 11:15-0500 SaO2% (BldA) [Mass fraction] 98 % Tondra Mapus Other [employer] Other 03-12-2023 11:15-0500 Systolic blood pressure 128 mm[Hg] Tondra Mapus Other [facility] 01-07-2023 10:00-0400 Body height 170.18 cm Kingsley Latisha Other [employer] Other 01-07-2023 10:00-0400 Body mass index (BMI) [Ratio] 27 kg/m2 Kingsley Latisha Other [employer] Other 01-07-2023 10:00-0400 Body temperature 97.7 [degF] Kingsley Latisha Other [employer] Other 01-07-2023 10:00-0400 Body weight 78.2 kg Kingsley Latisha Other [employer] Other 01-07-2023 10:00-0400 Diastolic blood pressure 73 mm[Hg] Kingsley Latisha Other [employer] Other 01-07-2023 10:00-0400 Respiratory rate 16 /min Kingsley Latisha Other [employer] Other 01-07-2023 10:00-0400 SaO2% (BldA) [Mass fraction] 98 % Kingsley Latisha Other [employer] Other 01-07-2023 10:00-0400 Systolic blood pressure 108 mm[Hg] Kingsley Latisha Other [employer] Other 12-31-2022 09:30-0400 Body height 170.18 cm Harley Ball Other [employer] Other 12-31-2022 09:30-0400 Body mass index (BMI) [Ratio] 27.03 kg/m2 Harley Ball Other [employer] Other 12-31-2022 09:30-0400 Body weight 78.29 kg Harley Ball Other [employer] Other 12-31-2022 09:30-0400 Diastolic blood pressure 69 mm[Hg] Harley Ball Other [employer] Other 12-31-2022 09:30-0400 Respiratory rate 16 /min Harley Ball Other [employer] Other 12-31-2022 09:30-0400 Systolic blood pressure 102 mm[Hg] Harley Ball Other [employer] Other 08-31-2022 08:45-0400 Body height 170.18 cm Harley Ball Other [employer] Other 08-31-2022 08:45-0400 Body mass index (BMI) [Ratio] 26.72 kg/m2 Harley Ball Other [employer] Other 08-31-2022 08:45-0400 Body weight 77.38 kg Harley Ball Other [employer] Other 08-31-2022 08:45-0400 Diastolic blood pressure 69 mm[Hg] Harley Ball Other [employer] Other 08-31-2022 08:45-0400 Respiratory rate 12 /min Harley Ball Other [employer] Other 08-31-2022 08:45-0400 Systolic blood pressure 102 mm[Hg] Harley Ball Other [employer] Other 07-02-2022 10:40-0400 Body height 170.18 cm Kingsley Latisha Other [employer] Other 07-02-2022 10:40-0400 Body mass index (BMI) [Ratio] 27.69 kg/m2 Kingsley Latisha Other [employer] Other 07-02-2022 10:40-0400 Body temperature 96.4 [degF] Kingsley Latisha Other [employer] Other 07-02-2022 10:40-0400 Body weight 80.2 kg Kingsley Latisha Other [employer] Other 07-02-2022 10:40-0400 Diastolic blood pressure 71 mm[Hg] Kingsley Latisha Other [employer] Other 07-02-2022 10:40-0400 Respiratory rate 16 /min Kingsley Latisha Other [employer] Other 07-02-2022 10:40-0400 SaO2% (BldA) [Mass fraction] 97 % Kingsley Latisha Other [employer] Other 07-02-2022 10:40-0400 Systolic blood pressure 115 mm[Hg] Kingsley Latisha Other [employer] Other 06-28-2022 09:30-0400 Body height 170.18 cm Harley Ball Other [employer] Other 06-28-2022 09:30-0400 Body mass index (BMI) [Ratio] 27.16 kg/m2 Harley Ball Other [employer] Other 06-28-2022 09:30-0400 Body weight 78.65 kg Harley Ball Other [employer] Other 06-28-2022 09:30-0400 Diastolic blood pressure 66 mm[Hg] Harley Ball Other [employer] Other 06-28-2022 09:30-0400 Respiratory rate 12 /min Harley Ball Other [employer] Other 06-28-2022 09:30-0400 Systolic blood pressure 115 mm[Hg] Harley Ball Other [employer] Other 06-26-2022 08:45-0400 Body height 170.18 cm Tondra Mapus Other [employer] Other 06-26-2022 08:45-0400 Body mass index (BMI) [Ratio] 27.75 kg/m2 Tondra Mapus Other [employer] Other 06-26-2022 08:45-0400 Body weight 80.38 kg Tondra Mapus Other [employer] Other 06-26-2022 08:45-0400 Diastolic blood pressure 61 mm[Hg] Tondra Mapus Other [employer] Other 06-26-2022 08:45-0400 Respiratory rate 16 /min Tondra Mapus Other [employer] Other 06-26-2022 08:45-0400 SaO2% (BldA) [Mass fraction] 96 % Tondra Mapus Other [employer] Other 06-26-2022 08:45-0400 Systolic blood pressure 105 mm[Hg] Tondra Mapus Other [employer] Other 03-20-2022 09:15-0500 Body height 170.18 cm Tondra Mapus Other [employer] Other 03-20-2022 09:15-0500 Body mass index (BMI) [Ratio] 26.15 kg/m2 Tondra Mapus Other [employer] Other 03-20-2022 09:15-0500 Body weight 75.75 kg Tondra Mapus Other [employer] Other 03-20-2022 09:15-0500 Diastolic blood pressure 57 mm[Hg] Tondra Mapus Other [employer] Other 03-20-2022 09:15-0500 Respiratory rate 16 /min Tondra Mapus Other [employer] Other 03-20-2022 09:15-0500 SaO2% (BldA) [Mass fraction] 98 % Tondra Mapus Other [employer] Other 03-20-2022 09:15-0500 Systolic blood pressure 117 mm[Hg] Tondra Mapus Other [employer] Other 01-17-2022 11:45-0400 Body height 170.18 cm DO Harley Ball Work Phone: [facility] 01-17-2022 11:22-0400 Diastolic blood pressure 68 mm[Hg] DO Harley Ball Work Phone: [facility] 01-17-2022 11:22-0400 Heart rate 60 /min DO Harley Ball Work Phone: [facility] 01-17-2022 11:22-0400 Systolic blood pressure 118 mm[Hg] DO Harley Ball Work Phone: [facility] 01-17-2022 11:05-0400 Body temperature 97.4 [degF] DO Harley Ball Work Phone: [facility] 01-17-2022 11:05-0400 Respiratory rate 18 /min DO [employer] Work Phone: [facility] 01-17-2022 11:05-0400 SaO2% (BldA) [Mass fraction] 95 % DO [employer] Work Phone: [facility] 01-17-2022 06:58-0400 Body weight 77.9 kg DO [employer] Work Phone: [facility] 01-15-2022 15:23-0400 Inhaled oxygen flow rate 2 L/min DO [employer] Work Phone: [facility] 12-18-2021 09:45-0400 Body height 170.18 cm Tondra Mapus Other [employer] Other 12-18-2021 09:45-0400 Body mass index (BMI) [Ratio] 27.25 kg/m2 Tondra Mapus Other [employer] Other 12-18-2021 09:45-0400 Body weight 78.93 kg Tondra Mapus Other [employer] Other 12-18-2021 09:45-0400 Diastolic blood pressure 65 mm[Hg] Tondra Mapus Other [employer] Other 12-18-2021 09:45-0400 Respiratory rate 16 /min Tondra Mapus Other [employer] Other 12-18-2021 09:45-0400 SaO2% (BldA) [Mass fraction] 97 % Tondra Mapus Other [employer] Other 12-18-2021 09:45-0400 Systolic blood pressure 133 mm[Hg] Tondra Mapus Other [employer] Other 09-29-2021 13:13-0400 Blood Pressure Location [facility]agan [employer] [facility] 09-29-2021 13:13-0400 Diastolic blood pressure 74 mm[Hg] [facility] 09-29-2021 13:13-0400 Heart rate 60 /min [facility] [employer] [facility] 09-29-2021 13:13-0400 Respiratory rate 16 /min [facility] [employer] [facility] [place] 09-29-2021 13:13-0400 Systolic blood pressure 138 mm[Hg] Gagan [employer] [facility] [place] 07-17-2021 09:45-0400 Body height 170.18 cm Tondra Mapus Other [employer] Other 07-17-2021 09:45-0400 Body mass index (BMI) [Ratio] 30.69 kg/m2 Tondra Mapus Other [employer] Other 07-17-2021 09:45-0400 Body weight 88.91 kg Tondra Mapus Other [employer] Other 07-17-2021 09:45-0400 Diastolic blood pressure 73 mm[Hg] Tondra Mapus Other [employer] Other 07-17-2021 09:45-0400 Respiratory rate 16 /min Tondra Mapus Other [employer] Other 07-17-2021 09:45-0400 SaO2% (BldA) [Mass fraction] 97 % Tondra Mapus Other [employer] Other 07-17-2021 09:45-0400 Systolic blood pressure 163 mm[Hg] Tondra Mapus Other [employer] Other 06-06-2021 10:20-0500 Body height 170.18 cm Kingsley Latisha Other [employer] Other 06-06-2021 10:20-0500 Body mass index (BMI) [Ratio] 30.29 kg/m2 Kingsley Latisha Other [employer] Other 06-06-2021 10:20-0500 Body temperature 96.1 [degF] Kingsley Latisha Other [employer] Other 06-06-2021 10:20-0500 Body weight 87.73 kg Kingsley Latisha Other [employer] Other 06-06-2021 10:20-0500 Diastolic blood pressure 70 mm[Hg] Kingsley Latisha Other [employer] Other 06-06-2021 10:20-0500 Respiratory rate 18 /min Kingsley Latisha Other [employer] Other 06-06-2021 10:20-0500 SaO2% (BldA) [Mass fraction] 97 % Kingsley Latisha Other [employer] Other 06-06-2021 10:20-0500 Systolic blood pressure 160 mm[Hg] Kingsley Latisha Other [employer] Other 04-10-2021 09:15-0500 Body height 170.18 cm Tondra Mapus Other [employer] Other 04-10-2021 09:15-0500 Body mass index (BMI) [Ratio] 30.99 kg/m2 Tondra Mapus Other [employer] Other 04-10-2021 09:15-0500 Body weight 89.77 kg Tondra Mapus Other [employer] Other 04-10-2021 09:15-0500 Diastolic blood pressure 64 mm[Hg] Tondra Mapus Other [employer] Other 04-10-2021 09:15-0500 Respiratory rate 18 /min Tondra Mapus Other [employer] Other 04-10-2021 09:15-0500 SaO2% (BldA) [Mass fraction] 98 % Tondra Mapus Other [employer] Other 04-10-2021 09:15-0500 Systolic blood pressure 136 mm[Hg] Tondra Mapus Other [employer] Other 02-14-2021 10:00-0500 Body height 170.18 cm Kingsley Latisha Other [employer] Other 02-14-2021 10:00-0500 Body mass index (BMI) [Ratio] 30.98 kg/m2 Kingsley Latisha Other [employer] Other 02-14-2021 10:00-0500 Body temperature 96 [degF] Kingsley Latisha Other [employer] Other 02-14-2021 10:00-0500 Body weight 89.72 kg Kingsley Latisha Other [employer] Other 02-14-2021 10:00-0500 Diastolic blood pressure 60 mm[Hg] Kingsley Latisha Other [employer] Other 02-14-2021 10:00-0500 Respiratory rate 16 /min Kingsley Latisha Other [employer] Other 02-14-2021 10:00-0500 SaO2% (BldA) [Mass fraction] 97 % Kingsley Latisha Other [employer] Other 02-14-2021 10:00-0500 Systolic blood pressure 130 mm[Hg] Kingsley Latisha Other [employer] Other 01-03-2021 10:15-0400 Body height 170.18 cm Tondra Mapus Other [employer] Other 01-03-2021 10:15-0400 Body mass index (BMI) [Ratio] 31.01 kg/m2 Tondra Mapus Other [employer] Other 01-03-2021 10:15-0400 Body weight 89.81 kg Tondra Mapus Other [employer] Other 01-03-2021 10:15-0400 Diastolic blood pressure 67 mm[Hg] Tondra Mapus Other [employer] Other 01-03-2021 10:15-0400 Respiratory rate 16 /min Tondra Mapus Other [employer] Other 01-03-2021 10:15-0400 SaO2% (BldA) [Mass fraction] 99 % Tondra Mapus Other [employer] Other 01-03-2021 10:15-0400 Systolic blood pressure 151 mm[Hg] Tondra Mapus Other [employer] Other Encounters Encounter Date Encounter Type Care Provider Facility Start: 08-04-2024 End: 08-04-2024 ambulatory OBI [facility] Start: 08-04-2024 End: 08-04-2024 ambulatory [place] LARKIN [place] Start: 08-04-2024 End: 08-04-2024 Patient encounter procedure Jason LARKIN [facility] Start: 08-03-2024 End: 08-03-2024 ambulatory Jason LARKIN [facility] Start: 08-03-2024 End: 08-03-2024 Lab Drop off Jason LARKIN [facility] Start: 08-03-2024 End: 08-03-2024 ambulatory HARLEY CRESPO Facility:[facility] Start: 08-03-2024 End: 08-03-2024 ambulatory Harley Crespo DO Work Phone: [facility] Work Phone: Start: 08-03-2024 End: 08-03-2024 Patient encounter procedure Harley Ball DO Work Phone: [facility] Work Phone: Start: 07-27-2024 End: 07-27-2024 ambulatory Harley Ball DO Work Phone: [facility] Work Phone: Start: 07-27-2024 End: 07-27-2024 Patient encounter procedure Ahrley Ball DO Work Phone: [facility] Physician [facility] Work Phone: Start: 07-17-2024 ambulatory EMEKA NICHOLAS [facility] Start: 07-16-2024 Non-patient / Non-visit Benjam in Ball DO Work Phone: [facility] Physician [facility] Work Phone: Start: 07-15-2024 ambulatory Jason LARKIN Facility :[facility] Start: 07-15-2024 Non-patient / Non-visit Benjam in Ball DO Work Phone: [facility] Physician [facility] Work Phone: Start: 07-14-2024 End: 07-14-2024 ambulatory Harley Ball DO Work Phone: [facility] Work Phone: Start: 07-14-2024 End: 07-14-2024 Patient encounter procedure Harley Ball DO Work Phone: [facility] Physician [facility] Work Phone: Start: 07-07-2024 End: 07-07-2024 ambulatory Kingsley Morar [facility] Start: 07-07-2024 Non-patient / Non-visit Benjam in Ball DO Work Phone: [facility] Physician [facility] Work Phone: Start: 06-22-2024 ambulatory KEVIN ARTEAGA [facility] Start: 06-18-2024 End: 06-18-2024 ambulatory KENNETH TAVERA Not Available Start: 06-10-2024 Non-patient / Non-visit Benjam in Ball DO Work Phone: [facility] Physician [facility] Work Phone: Start: 05-28-2024 End: 05-28-2024 Departed Referred Harlye Ball DO Work Phone: [facility] Work Phone: Start: 05-28-2024 End: 05-28-2024 Patient encounter procedure Harley Ball DO Work Phone: [facility] S[facility]is[facility] Work Phone: Start: 05-28-2024 End: 05-28-2024 ambulatory Harley Crespo DO Work Phone: [facility] Work Phone: Start: 05-26-2024 End: 05-26-2024 ambulatory [facility] Start: 05-18-2024 ambulatory [facility] Start: 05-05-2024 Non-patient / Non-visit Benjam in Ball DO Work Phone: [facility] Physician [facility] Work Phone: Start: 04-30-2024 End: 04-30-2024 ambulatory [facility] Work Phone: Start: 04-30-2024 End: 04-30-2024 Patient encounter procedure [facility] Physician [facility] Work Phone: Start: 04-21-2024 ambulatory [facility] Start: 04-16-2024 End: 04-16-2024 Patient encounter procedure [facility] Work Phone: Start: 04-02-2024 End: 04-02-2024 Bamboo [...] polyneuropathy, without long-term current use of insulin ([facility]) (Primary Dx); Pain due to onychomycosis of toenails of both feet Start: 04-02-2024 End: 04-02-2024 ambulatory KENNETH TAVERA Not Available Start: 03-26-2024 ambulatory [facility] Start: 03-10-2024 End: 03-10-2024 ambulatory [facility] Start: 03-06-2024 ambulatory [facility] Start: 02-24-2024 End: 02-24-2024 Patient encounter procedure [facility] Work Phone: Start: 02-20-2024 ambulatory [facility] Start: 02-18-2024 Non-patient / Non-visit [facility] Work Phone: Start: 02-18-2024 Non-patient / Non-visit [facility] Work Phone: Start: 02-13-2024 Evaluation and management of inpatient YFN YOST [facility] Start: 02-13-2024 Evaluation and management of inpatient [facility] Start: 02-13-2024 Evaluation and management of inpatient [facility] Start: 02-13-2024 End: 02-14-2024 [facility] Start: 02-12-[facility]24 Non-patient / Non-visit [facility] Work Phone: Start: 02-12-2024 Non-patient / Non-visit [facility] Work Phone: Start: 01-23-2024 [...] polyneuropathy, without long-term current use of insulin ([facility]); Pain due to onychomycosis of toenails of both feet Start: 01-23-2024 End: 01-23-2024 ambulatory KENNETH TAVERA Not Available Start: 01-23-2024 End: 01-23-2024 ambulatory [facility] Work Phone: Start: 01-23-2024 End: 01-23-2024 Patient encounter procedure [facility] Physician [facility] Work Phone: Start: 01-21-2024 ambulatory [facility] Start: 01-16-2024 ambulatory [facility] Start: 01-10-2024 ambulatory [facility] Start: 01-10-2024 Encounter for preprocedural cardiovascular examination [facility] Start: 01-09-2024 ambulatory [facility] Start: 01-07-2024 End: 01-07-2024 ambulatory [facility] Work Phone: Start: 01-07-2024 End: 01-07-2024 Patient encounter procedure [facility] Physician [facility] [place] Work Phone: Start: 12-30-2023 Non-patient / Non-visit [facility] Physician [facility] Work Phone: Start: 12-12-2023 End: 12-12-2023 ambulatory [facility] Work Phone: Start: 12-12-2023 End: 12-12-2023 Patient encounter procedure [facility] Work Phone: Start: 11-28-2023 ambulatory [facility] Start: 11-12-2023 End: 11-12-2023 ambulatory [facility] Start: 11-07-2023 End: 11-07-2023 ambulatory KENNETH TAVERA Not Available Start: 10-17-2023 End: 10-17-2023 ambulatory [facility] Work Phone: Start: 10-17-2023 End: 10-17-2023 Patient encounter procedure [facility] Work Phone: Start: 10-07-2023 End: 10-07-2023 ambulatory [facility] Start: 10-02-2023 ambulatory [facility] Start: 09-27-2023 Evaluation and management of inpatient [facility] Start: 09-27-2023 Evaluation and management of inpatient [facility] Start: 09-26-2023 Non-patient / Non-visit [facility] Work Phone: Start: 09-26-2023 Evaluation and management of inpatient [facility] Start: 09-26-2023 End: 09-28-2023 Evaluation and management of inpatient [facility] Start: 09-26-2023 Non-patient / Non-visit [facility] Physician [facility] Work Phone: Start: 09-25-2023 ambulatory EMEKA NICHOLAS [facility] Start: 09-24-2023 ambulatory KEVIN [facility] Start: 09-19-2023 ambulatory [facility] Start: 09-09-2023 End: 09-09-2023 ambulatory NETOAB [facility] Start: 08-27-2023 Non-patient / Non-visit [facility] Work Phone: Start: 08-12-2023 End: 08-12-2023 ambulatory [facility] Work Phone: Start: 08-12-2023 End: 08-12-2023 Patient encounter procedure [facility] Physician [facility] Work Phone: Start: 07-02-2023 End: 07-02-2023 ambulatory [facility] Work Phone: Start: 07-02-2023 End: 07-02-2023 Patient encounter procedure [facility] Physician [facility] Work Phone: Start: 06-24-2023 Non-patient / Non-visit [facility] Physician [facility] Work Phone: Start: 06-18-2023 End: 06-18-2023 ambulatory [facility] Work Phone: Start: 06-18-2023 End: 06-18-2023 Patient encounter procedure [facility] Physician [facility] Work Phone: Start: 06-13-2023 Non-patient / Non-visit [facility] Physician [facility] Work Phone: Start: 05-03-2023 End: 05-03-2023 Patient encounter procedure DO Harley Cherie Work Phone: [facility]- Start: 04-30-2023 End: 04-30-2023 ambulatory Kingsley Good Other [employer] Other Start: 04-30-2023 Telephone encounter Noelle OAKLEY [facility] Start: 04-23-2023 End: 04-23-2023 ambulatory Tondra Mapus Other [employer] Other Start: 04-23-2023 Telephone encounter Tondra Mapus [facility] Start: 03-12-2023 (DM) Diabetes Tondra Desireeus [facility] Start: 03-12-2023 End: 03-12-2023 ambulatory DO Harley Crespo Work Phone: [employer] Other Start: 03-12-2023 End: 03-12-2023 Discharged Recurring DO Harley Crespo Work Phone: [facility] Work Phone: Start: 03-12-2023 End: 03-12-2023 Patient encounter procedure DO Harley Crespo Work Phone: [facility] Work Phone: Start: 02-12-2023 End: 02-12-2023 ambulatory Harley Crespo Other [employer] Other Start: 02-12-2023 Telephone encounter Harley Crespo MONTEZ G [facility] Start: 02-07-2023 End: 02-07-2023 ambulatory Harley Crespo Other [employer] Other Start: 02-07-2023 Telephone encounter Harley HERRMANN G [facility] Start: 02-06-2023 End: 02-06-2023 ambulatory Tondra Mapus Other [employer] Other Start: 02-06-2023 Telephone encounter Tondra Varghese [facility] Start: 01-29-2023 End: 01-29-2023 ambulatory Harley Crespo Other [employer] Other Start: 01-29-2023 Telephone encounter Harley Crespo FP [facility] Start: 01-17-2023 End: 01-17-2023 ambulatory Tondra Mapus Other [employer] Other Start: 01-17-2023 Telephone encounter Tondra Mapus [facility] Start: 01-07-2023 End: 01-07-2023 ambulatory Harley Crespo Other [employer] Other Start: 01-07-2023 Office outpatient vi sit 25 minutes Kingsley Latisha [facility] Start: 01-07-2023 Telephone encounter Harley Crespo FP [facility] Start: 01-04-2023 End: 01-04-2023 ambulatory Kingsley Latisha Other [employer] Other Start: 01-04-2023 Telephone encounter Kingsley Latisha [facility] Start: 01-01-2023 End: 01-01-2023 ambulatory Kingsley Latisha Other [employer] Other Start: 01-01-2023 Telephone encounter Kingsley Latisha [facility] Start: 12-31-2022 End: 12-31-2022 ambulatory Harley Crespo Other [employer] Other Start: 12-31-2022 Office outpatient vi sit 25 minutes Harley Crespo [facility] Start: 12-31-2022 Telephone encounter Harley HERRMANN [facility] Start: 12-13-2022 End: 12-13-2022 ambulatory Denita Chairez Other [employer] Other Start: 12-13-2022 Nursing evaluation o f patient and report Denita Chairez [facility] Start: 11-23-2022 End: 11-23-2022 ambulatory Tondra Mapus Other [employer] Other Start: 11-23-2022 Telephone encounter Arlen Kwong [facility] Start: 10-12-2022 End: 10-12-2022 ambulatory Arlen Kwong Other [employer] Other Start: 10-12-2022 Telephone encounter Arlen Shane [facility] Start: 10-09-2022 End: 10-09-2022 ambulatory Harley Crespo Other [employer] Other Start: 10-09-2022 Telephone encounter Harley Crespo FP [facility] Start: 10-01-2022 End: 10-01-2022 ambulatory Harley Crespo Other [employer] Other Start: 10-01-2022 Telephone encounter Harley Crespo FP Replaced By [facility] Start: 09-27-2022 End: 09-27-2022 ambulatory Kingsley Latisha Other [employer] Other Start: 09-27-2022 Telephone encounter Kingsley Latisha [facility] Start: 09-26-2022 End: 09-26-2022 ambulatory Harley Crespo Other [employer] Other Start: 09-26-2022 Telephone encounter Harley Crespo FP [facility] Start: 09-19-2022 End: 09-19-2022 ambulatory Kingsley Latisha Other [employer] Other Start: 09-19-2022 Telephone encounter Kingsley Latisha [facility] Start: 09-12-2022 End: 09-12-2022 ambulatory Harley Crespo Other [employer] Other Start: 09-12-2022 Telephone encounter Harley Crespo FP [facility] Start: 09-03-2022 End: 09-03-2022 ambulatory Harley Crespo Other [employer] Other Start: 09-03-2022 Telephone encounter Harley HERRMANN G [facility] Start: 08-31-2022 End: 08-31-2022 ambulatory Harley Crespo Other [employer] Other Start: 08-31-2022 Office outpatient vi sit 25 minutes Harley Crespo [facility] Start: 08-10-2022 End: 08-10-2022 ambulatory Harley Crespo Other [employer] Other Start: 08-10-2022 Telephone encounter Harley Crespo FP G [facility] Start: 08-09-2022 End: 08-10-[address] HARLEY CRESPO [facility] [employer] Other Start: 08-09-2022 Telephone encounter Kingsley Latisha [facility] Start: 07-02-2022 End: 07-02-2022 ambulatory Kingsley Latisha Other [employer] Other Start: 07-02-2022 Office outpatient vi sit 25 minutes Kingsley Latisha [facility] Start: 06-28-2022 End: 06-28-2022 ambulatory Harley Crespo Other [employer] Other Start: 06-28-2022 Patient encounter procedure Harley Crespo [facility] Start: 06-26-2022 (DM) Diabetes Tondra Mapus [facility] Start: 06-26-2022 End: 06-26-2022 ambulatory Tondra Mapus Other [employer] Other Start: 06-25-2022 End: 06-26-2022 ambulatory KINGSLEY LATISHA Facility:[facility] Start: 06-18-2022 End: 06-19-2022 ambulatory TONDRA MAPUS Facility:[facility] Start: 06-05-2022 End: 06-06-[address] HARLEY CRESPO Facility:[facility] Start: 05-26-2022 End: 05-26-2022 ambulatory Harley Crespo Other [employer] Other Start: 05-26-2022 Telephone encounter Harley Crespo [facility] Start: 05-25-2022 End: 05-25-2022 ambulatory Tondra Mapus Other [employer] Other Start: 05-25-2022 Telephone encounter Tondra Mapus [facility] Start: 05-03-2022 End: 05-04-[address] PINKY BISHOP Facility:[facility] Start: 04-18-2022 End: 04-19-[address] PINKY BISHOP Facility:[facility] Start: 03-22-2022 End: 03-23-[address] HIGINIO FLANAGAN Facility:[facility] Start: 03-20-2022 (DM) Diabetes Tondra Mapus [facility] Start: 03-20-2022 End: 03-20-2022 ambulatory Tondra Mapus Other [employer] Other Start: 03-12-2022 End: 03-13-2022 Evaluation and management of inpatient DR PARUL CHU Facility:[facility] Start: 03-09-2022 End: 03-10-[address] SHANNON LANDIS Facility:[facility] Start: 03-02-2022 End: 03-03-[address] HARLEY CRESPO Facility:[facility] Start: 02-19-2022 End: 02-19-2022 ambulatory Tondra Mapus Other [employer] Other Start: 02-19-2022 Telephone encounter Tondra Mapus [facility] Start: 02-08-2022 End: 02-08-2022 ambulatory Tondra Mapus Other [employer] Other Start: 02-08-2022 Telephone encounter Tondra Mapus [facility] Start: 01-15-2022 End: 01-17-2022 Evaluation and management of inpatient DO Harley Crespo Work Phone: [facility] Start: 01-15-2022 End: 01-15-[address] HARLEY CRESPO Facility:[facility] Start: 12-18-2021 Registered Mauricio Valdez in [place] Work Phone: [facility] Start: 12-18-2021 (DM) Diabetes Tondra Mapus [facility] Start: 12-18-2021 End: 12-18-2021 ambulatory Tondra Mapus Other [employer] Other Start: 12-08-2021 End: 12-09-[address] HARLEY CRESPO Facility:[facility] Start: 11-30-2021 End: 12-01-2021 ambulatory KINGSLEY GOOD Facility:[facility] Start: 11-24-2021 End: 11-25-[address] HARLEY CRESPO Facility:[facility] Start: 11-16-2021 End: 11-16-2021 ambulatory Tondra Mapus Other [employer] Other Start: 11-16-2021 Telephone encounter Tondra Mapus [facility] Start: 2021 End: 2021 ambulatory Tondra Mapus Other [employer] Other Start: 2021 Telephone encounter Tondra Mapus [facility] Start: 10-31-2021 End: 10-31-2021 ambulatory Tondra Mapus Other [employer] Other Start: 10-31-2021 Telephone encounter Tondra Mapus [facility] Start: 10-27-2021 End: 10-27-[address] HARLEY CRESPO Facility:[facility] Start: 10-20-2021 Telephone encounter Abdon martins MD Work Phone: Hematology/Oncology Comment on above: Lab Orders Start: 10-03-2021 End: 10-04-[address] GAGAN NILL . Facility:[facility] Start: 09-29-2021 End: 09-29-2021 Patient encounter procedure Gagan DAVID General [facility] Start: 09-04-2021 End: 09-05-[address] HARLEY CRESPO Facility:[facility] Start: 08-26-2021 End: 08-27-[address] HARLEY CRESPO Facility:[facility] Start: 07-24-2021 End: 07-24-2021 ambulatory Tondra Mapus Other [employer] Other Start: 07-24-2021 Telephone encounter Tondra Mapus [facility] Start: 07-17-2021 (DM) Diabetes Tondra Mapus [facility] Start: 07-17-2021 End: 07-17-2021 ambulatory Tondra Mapus Other [employer] Other Start: 06-19-2021 End: 06-19-2021 ambulatory Shannon Escobar Other [employer] Other Start: 06-19-2021 Telephone encounter Shannon Escobar [facility] Start: 06-06-2021 End: 06-06-2021 ambulatory Kingsley Latisha Other [employer] Other Start: 06-06-2021 Office outpatient vi sit 25 minutes Kingsley Latisha [facility] Start: 05-22-2021 End: 05-22-2021 ambulatory Tondra Mapus Other [employer] Other Start: 05-22-2021 Telephone encounter Tondra Mapus [facility] Start: 05-16-2021 End: 05-16-2021 ambulatory Tondra Mapus Other [employer] Other Start: 05-16-2021 Telephone encounter Tondra Desireeus [facility] Start: 04-10-2021 (DM) Diabetes Tondra Desireeus [facility] Start: 04-10-2021 End: 04-10-2021 ambulatory Tondra Mapus Other [employer] Other Start: 04-10-2021 Telephone encounter Tondra Mapus [facility] Start: 02-14-2021 End: 02-14-2021 ambulatory Kingsley Latisha Other [employer] Other Start: 02-14-2021 Patient encounter procedure Kingsley Latisha [facility] Start: 02-14-2021 Telephone encounter Tondra Varghese [facility] Start: 01-03-2021 (DM) Diabetes Tondra Desireeus [facility] Start: 10-14-2018 End: 10-15-2018 Patient encounter procedure [facility] Facility:[facility] Start: 02-24-2018 End: 02-25-2018 Evaluation and management of inpatient [facility] Facility:[facility] Procedures Date Procedure Procedure Detail Performing [...] Start: 04-01-2016 Aortic stent (physical object) Gagan Mandie ROBBINS Start: 04-01-2015 Percutaneous coronary intervention Smith DAVID Comment on above: stent/vein graft Start: 04-01-2012 Percutaneous transluminal coronary angioplasty Gagan MORGANDarling Start: 04-01-2009 Cardiac catheterization Gagan MORGANDarling Start: 04-01-2007 Percutaneous transluminal coronary angioplasty Gagan MORGANDarling Start: 04-01-2004 Cardiac catheterization Gagan DAVID Start: 04-01-2002 Cardiac catheterization Gagan DAVID Start: 04-01-1991 Coronary artery bypass graft Gagan MORGAN Darling History of placement of stent for coronary artery disease Jason CHAYA Pacemaker care management Jaron dupontkayden CHAYA Percutaneous coronary intervention Gagan MORGANDarling Comment on above: stent/vein graft Plan of Treatment Date Care Activity Detail Author Start: 07-11-2031 Screening for malign ant neoplasm [facility] colon [facility] Start: 07-27-2024 Patient referral [facility] Work Phone: Start: 07-14-2024 Patient referral [facility] Work Phone: Start: 07-07-2024 [facility] Start: 06-11-2024 End: 06-11-2024 Patient encounter procedure 06/11/2024 11:50 AM EDT Office Visit [facility] [address] [facility] [address] [place] [address] Kenneth Tavera DPM [address] [address] [facility] Start: 04-02-2024 End: 04-02-2024 Patient encounter procedure [facility] Comment on above: 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, without long-term current use of insulin (CMS/HCC) (Primary Dx); Pain due to onychomycosis of toenails of both feet Start: 01-23-2024 End: 01-23-2024 Patient encounter procedure 01/23/2024 11:30 AM EDT Office Visit [facility] [address] [facility] [address] [place] [id number] Kenneth Tavera DPM [address] [address] Diabetes mellitus due to underlying condition with [...] feet Start: 10-26-2023 DIABETES SCREEN DIABETES SCREEN [facility] Start: 10-17-2023 Patient referral [facility] Work Phone: Start: 08-16-2023 Screening for malign ant neoplasm of colon FIT-DNA [facility] Start: 01-17-2022 [facility] Start: 01-17-2022 Radionuclide myocard ial perfusion stress study NM rachel perf SPECT rest & str [facility] Start: 01-17-2022 Referral to cardiac rehabilitation program [facility] Start: 01-16-2022 Hospital admission [facility] Start: 01-15-2022 Hospital admission [facility] Start: 11-30-2021 Influenza vaccination INFLUENZA (#1) [facility] Start: 10-24-2021 End: 12-24-2021 CBC W Auto Differential panel - Blood CBC + DIFF Lab Routine Monoclonal gammopathy Expected: 10/24/2021, Expires: 12/24/2021 [facility] Work Phone: Comment on above: Expected: 10/24/2021 , Expires: 12/24/2021 Start: 04-25-2021 Adult depression screening assessment DEPRESSION SCREENING [facility] Start: 04-01-2021 ADVANCE DIRECTIVE DISCUSSION ADVANCE DIRECTIVE DISCUSSION [facility] Start: 11-21-2020 COVID-19 VACCINE (3 - Booster for Pfizer series) COVID-19 VACCINE (3 - Booster for Pfizer series) [facility] Start: 11-07-2001 SHINGRIX VACCINE (1 of 2) SHINGRIX VACCINE (1 of 2) [facility] Start: 11-07-1996 COLOGUARD (FIT-DNA) COLOGUARD (FIT-D NA) [facility] Start: 11-07-1996 Colonoscopy COLONOSCOPY [facility] Start: 11-07-1996 COLORECTAL CANCER SCREENING COLORECTAL CANCER SCREENING [facility] Start: 11-07-[address] [facility] Start: 11-07-1996 FECAL OCCULT BLOOD FECAL OCCULT BLOO D [facility] Start: 11-07-1996 SIGMOIDOSCOPY SIGMOIDOSCOPY [facility] Start: 11-07-1986 LIPID SCREEN LIPID SCREEN [facility] Start: 11-07-1970 Urine microalbumin profile DTAP,TDAP,TD (1 - Tdap) [facility] Start: 11-07-1969 HEPATITIS C SCREENING HEPATITIS C SC APURVA [facility] Start: 1950 ABDOMINAL AORTIC ANEURYSM SCREENING ABDOMINAL AORTIC ANEURYSM SCREENING [facility] Start: 1950 Screening for malign ant neoplasm of colon [facility] Comprehensive metabo lic 1999 panel - Serum or Plasma [facility] Comprehensive metabo lic 1999 panel - Serum or Plasma [facility] CT Abdomen and Pelvi s WO contrast [facility] CT Abdomen and Pelvi s WO contrast [facility] Patient Education [facility] Work Phone: Patient referral [facility] Work Phone: Renal function 1999 panel - Serum or Plasma [facility] Renal function 1999 panel - Serum or Plasma [facility] Renal function 1999 panel - Serum or Plasma [facility] Immunizations Immunization Date Immunization Notes Care Provider Poli patel 12-12-2023 influenza virus vaccine, unspecified formulation Jason LARKIN [facility] 12-12-2023 influenza, high dose seasonal, preservative-free [facility] 12-13-2022 influenza, high dose seasonal, preservative-free Denita Chairez Other [employer] [facility] [employer] Other 12-13-2022 influenza virus vaccine, unspecified formulation DO Harley Crespo Work Phone: [facility] 12-15-2021 influenza virus vaccine, unspecified formulation DO Harley Crespo Work Phone: [facility] 12-15-2021 influenza, high dose seasonal, preservative-free Harley Crespo Other [employer] [facility] [employer] Other 02-21-2021 COVID-19 mRNA, Comirnaty (Pfizer) DO Harley Ball Work Phone: [facility] 06-21-2020 COVID-19 Vaccine Pfi zer - Documentation Purposes Only Tondra Mapus Other [facility] 05-30-2020 COVID-19 Vaccine Pfi zer - Documentation Purposes Only Tondra Mapus Other [facility] 01-17-2018 influenza virus vaccine, unspecified formulation Jason LARKIN [facility] 01-17-2018 pneumococcal polysaccharide vaccine, 23 valent Abdon Walker MD Work Phone: [facility] 01-17-2018 Seasonal trivalent influenza vaccine, adjuvanted, preservative free Abdon Walker MD Work Phone: [facility] 01-16-2017 influenza virus vaccine, unspecified formulation Jason LARKIN [facility] 01-16-2017 influenza, high dose seasonal, preservative-free Abdon Walker MD Work Phone: [facility] 11-30-2016 influenza virus vaccine, unspecified formulation Jason LARKIN [facility] 11-30-2016 influenza, injectabl e, quadrivalent, preservative free Abdon Walker MD Work Phone: [facility] 11-14-2016 pneumococcal conjuga te vaccine, 13 valent Abdon Walker MD Work Phone: [facility] 04-02-2016 pneumococcal polysaccharide vaccine, 23 valent Tondra Mapus Other [facility] 01-23-2012 influenza virus vaccine, unspecified formulation Jason LARKIN [facility] 01-23-2012 influenza, seasonal, injectable Abdon Walker MD Work Phone: [facility] 12-13-2010 influenza virus vaccine, unspecified formulation Jason LARKIN [facility] 12-13-2010 influenza, seasonal, injectable Abdon Walker MD Work Phone: [facility] 01-27-2009 novel [id number], preservative-free, injectable Abdon Walker MD Work Phone: [facility] 01-19-2008 influenza virus vaccine, whole virus Abdon Walker MD Work Phone: [facility] 01-19-2008 influenza, whole Jason EZ HERNANDES [facility] Payers Date Payer Category Payer Self-pay [id number] 2021 Unknown [id number] 2021 Private Health Insurance [employer] [id number] 2019 Unknown MMO MMO MEDICARE SUPPLEMENT [id number] 2019-Present [phone] [address] [place] [address] Indemnity [id number] 2016 Medicare MEDICARE MEDICAR E A AND B [id number] 2016-Present [phone] [address] [address] [place] [address] Medicare [id number]. [id number] 2016 Medicare [id number] [id number]. [id number] 1959 Medicare [id number] 1959 Unknown [id number] 2.16.840.1.840336.19 1951 Unknown [id number] 2.16.840.1.329149.3.579.2. 647 1951 Unknown [id number] 2.16.840.1.934715.3.579.2. 647 1951 Unknown [id number] 2.16.840.1.725248.3.579.2. 593 1951 Unknown [id number] 2.16.840.1.355646.3.579.2. 593 1951 Unknown [id number] 2.16.840.1.503035.3.579.2. 593 1951 Unknown [id number] 2.16.840.1.505031.3.579.2. 593 1951 Unknown [id number] 2.16.840.1.113865.3.579.2. 593 1951 Unknown [id number] 2.16.840.1.835533.3.579.2. 593 1951 Unknown [id number] 2.16.840.1.809201.3.579.2. 593 1951 Unknown [id number] 2.16.840.1.407326.3.579.2. 593 1951 Unknown [id number] 2.16.840.1.815765.3.579.2. 593 1951 Unknown [id number] 2.16.840.1.023432.3.579.2. 593 1951 Unknown [id number] 2.16.840.1.345878.3.579.2. 593 1951 Unknown [id number] 2.16.840.1.031029.3.579.2. 593 1951 Unknown [id number] 2.16.840.1.542731.3.579.2. 593 1951 Unknown [id number] 2.16.840.1.440471.3.579.2. 593 1951 Unknown [id number] 2.16.840.1.587158.3.579.2. 593 1951 Unknown [id number] 2.16.840.1.582601.3.579.2. 593 1951 Unknown [id number] 2.16.840.1.075579.3.579.2. 593 1951 Unknown [id number] 2.16.840.1.668939.3.579.2. 593 1951 Unknown [id number] 2.16.840.1.756973.3.579.2. 1259 1951 Unknown [id number] 2.16.840.1.466958.3.579.2. 1259 1951 Unknown [id number] 2.16.840.1.898005.3.579.2. 1259 1951 Unknown [id number] 2.16.840.1.492364.3.579.2. 1259 1951 Unknown [id number] 2.16.840.1.450728.3.579.2. 727 1951 Unknown [id number] 2.16.840.1.789062.3.579.2. 727 1950 Unknown [id number] 2.16.840.1.680235.3.579.2. 727 Unknown [id number] Unknown HCAP/HFA/FAP Active [id number] Unknown HCAP/HFA/FAP Active [id number] Unknown [id number] 2.16.840.1.937901.3.579.2. 531 Unknown [id number] 2.16.840.1.943806.3.579.2. 531 Social History Date Type Detail Facility Unknown if ever smoked [employer] Other Start: 11-07-2023 End: 01-23-2024 Sex Assigned At [employer] Other Start: 09-29-2021 End: 05-28-2024 Tobacco smoking status Ex-smoker (finding) [facility] [place] Tobacco smoking status Never [facility] Start: 07-23-2018 End: 10-12-2022 Tobacco use and exposure Smokeless tobacco non-user [facility] Start: 10-25-2020 Alcohol intake Ex-drinker (finding) [facility] Start: 1950 Sex Assigned At Not on file [facility] Start: 1950 Sex Assigned At Male F [facility] Start: 10-12-2022 [facility] Start: 11-07-2023 End: 04-02-2024 Alcoholic beverage intake Defer [facility] Start: 11-07-2023 End: 01-23-2024 History of Social function [facility] Start: 05-28-2012 End: 04-30-2024 Sex Male (finding[facility] Sexual O[facility] Medical Equipment Procedure Code Equipment Code [...] /State Functional Status Date Assessment Result Facility 08-04-2024 Functional Status N/A Dennis Neha [facility] 01-17-2022 Functional status [facility] at [facility] Work Phone: 09-29-2021 Functional Status N/A General Maria A [facility]ley Mental Status Date Assessment Result Facility 01-17-2022 Cognitive function Cognitive Sta tus Patient at [facility] Work Phone: Clinical Notes 01-03-2021 to 08-04-2024 Note Date & Type Note Facility 08-04-2024 Hospital Discharg e instructions Patient Education 08/04/2024 10:07:15 EU - Cystoscopy Discharge Instructions (CUSTOM) Cystoscopy Voiding after the procedure: there may be some pain, burning, urgency, frequency and blood tinged urine following the procedure. These symptoms usually resolve within 2-5 days. Drink the amount of fluid it takes to keep the urine pink to yellow or clear in color. Drinking enough water and fluids will help to ease any discomfort after your procedure. If you are having problems that seem out of the ordinary, please call. If unable to contact your physician and you feel it is an emergency, go to the nearest emergency room or call 911 Diet you may resume your normal diet. Activity you may resume your normal activities Call if you have a fever over 100 degrees. Follow Up Care 08/03/2024 14:29:05 With:Jason LARKIN Address: [address] [place] [address] Business (1) When: Unknown Comments:Office will call to schedule follow up [facility] 08-04-2024 Note Patient Education Custom Cystoscopy ??? Voiding after the procedure: there may be some pain, burning, urgency, frequency and blood tinged urine following the procedure. These symptoms usually resolve within 2-5 days. Drink the amount of fluid it takes to keep the urine pink to yellow or clear in color. Drinking enough water and fluids will help to ease any discomfort after your procedure. ??? If you are having problems that seem out of the ordinary, please call. ??? If unable to contact your physician and you feel it is an emergency, go to the nearest emergency room or call 911 ??? Diet ??? you may resume your normal diet. ??? Activity ??? you may resume your normal activities ??? Call if you have a fever over 100 degrees. [facility] 08-03-2024 Note Patient Education Urology Cystoscopy Cystoscopy is a procedure that is used to help diagnose and sometimes treat conditions that affect the lower urinary tract. The lower urinary tract includes the bladder and the urethra. The urethra is the tube that drains urine from the bladder. Cystoscopy is done using a thin, tube-shaped instrument with a light and camera at the end (cystoscope). The cystoscope may be hard or flexible, depending on the goal of the procedure. The cystoscope is inserted through the urethra, into the bladder. Cystoscopy may be recommended if you have: ??? Urinary tract infections that keep coming back. ??? Blood in the urine (hematuria). ??? An inability to control when you urinate (urinary incontinence) or an overactive bladder. ??? Unusual cells found in a urine sample. ??? A blockage in the urethra, such as a urinary stone. ??? Painful urination. ??? An abnormality in the bladder found during an intravenous pyelogram (IVP) or CT scan. Cystoscopy may also be done to remove a sample of tissue to be examined under a microscope (biopsy). Tell a health care provider about: ??? Any allergies you have. ??? All medicines you are taking, including vitamins, herbs, eye drops, creams, and sgif-ghb-wvezjab medicines. ??? Any problems you or family members have had with anesthetic medicines. ??? Any blood disorders you have. ??? Any surgeries you have had. ??? Any medical conditions you have. ??? Whether you are or may be . What are the risks? Generally, this is a safe procedure. However, problems may occur, including: ??? Infection. ??? Bleeding. ??? Allergic reactions to medicines. ??? Damage to other structures or organs. What happens before the procedure? Medicines Ask your health care provider about: ??? Changing or stopping your regular medicines. This is especially important if you are taking diabetes medicines or blood thinners. ??? Taking medicines such as aspirin and ibuprofen. These medicines can thin your blood. Do not take these medicines unless your health care provider tells you to take them. ??? Taking uxsd-ffu-kitrzft medicines, vitamins, herbs, and supplements. Tests You may have an exam or testing, such as: ??? X-rays of the bladder, urethra, or kidneys. ??? CT scan of the abdomen or pelvis. ??? Urine tests to check for signs of infection. General instructions ??? Follow instructions from your health care provider about eating or drinking restrictions. ??? Ask your health care provider what steps will be taken to help prevent infection. These steps may include: ? Washing skin with a germ-killing soap. ? Taking antibiotic medicine. ??? Plan to have a responsible adult take you home from the hospital or clinic. What happens during the procedure? You will be given one or more of the following: ? A medicine to help you relax (sedative). ? A medicine to numb the area (local anesthetic). ??? The area around the opening of your urethra will be cleaned. ??? The cystoscope will be passed through your urethra into your bladder. ??? Germ-free (sterile) fluid will flow through the cystoscope to fill your bladder. The fluid will stretch your bladder so that your health care provider can clearly examine your bladder dias. ??? Your doctor will look at the urethra and bladder. Your doctor may take a biopsy or remove stones. ??? The cystoscope will be removed, and your bladder will be emptied. The procedure may vary among health care providers and hospitals. What can I expect after the procedure? After the procedure, it is common to have: ??? Some soreness or pain in your abdomen and urethra. ??? Urinary symptoms. These include: ? Mild pain or burning when you urinate. Pain should stop within a few minutes after you urinate. This may last for up to 1 week. ? A small amount of blood in your urine for several days. ? Feeling like you need to urinate but producing only a small amount of urine. Follow these instructions at home: Medicines ??? Take tjmf-ojq-dohhwmx and prescription medicines only as told by your health care provider. ??? If you were prescribed an antibiotic medicine, take it as told by your health care provider. Do not stop taking the antibiotic even if you start to feel better. General instructions ??? Return to your normal activities as told by your health care provider. Ask your health care provider what activities are safe for you. ??? If you were given a sedative during the procedure, it can affect you for several hours. Do not drive or operate machinery until your health care provider says that it is safe. ??? Watch for any blood in your urine. If the amount of blood in your urine increases, call your health care provider. ??? Follow instructions from your health care provider about eating or drinking restrictions. ??? If a tissue sample was removed for testing (biopsy) during your (more content not included)... [facility] 07-14-2024 Evaluation note Diagnosis Onset Date Resolution Chronic HFrEF (heart failure with reduced ejection fraction) acute July 14, 2 025 9:36am CKD (chronic kidney disease) stage 3, GFR 30-59 ml/min acute July 14, 2024 9:36am Gross hematuria acute June 9:36am Hyperkalemia acute July 14, 2024 9:36am Hypertensive chronic kidney disease with stage 1 through stage 4 chronic ki acute July 14, 2024 9:36am Secondary hyperparathyroidism acute July 14, 2024 9:36am Type 2 diabetes mellitus with diabetic chronic kidney disease acute July 14, 2024 9:36am Chronic HFrEF (heart failure with reduced ejection fraction) acute July 27, 2 025 11:19am Chronic kidney disease acute Ap ril 2024 11:19am Gross hematuria acute June 11:19am HTN (hypertension) acute July 27, 2024 11:19am Hypercholesterolemia acute Apri l 2024 11:19am Ischemic cardiomyopathy acute A pril 2024 11:19am Pulmonary nodule acute July 272024 11:19am Type 2 diabetes mellitus with diabetic chronic kidney disease acute July 27, 2024 11:19am BMI 28.0-28.9,adult acute August 032024 9:17am Dietary counseling and surveillance acute August 03, 2024 9:17am HTN (hypertension) acute July 9:17am DM2 (diabetes mellitus, type 2) deleted August 03, 2024 9:17am HLD (hyperlipidemia) deleted August 03, 2024 9:17am [facility] Work Phone: 1(453) 283-127401-30-2025 Evaluation note* Diagnosis Onset Date Resolution Status Admit Date BMI 28.0-28.9,adult acute 2024 9:21am Dietary counseling and surveillance acute April 30 9:21am HTN (hypertension) acute 2024 9:21am DM2 (diabetes mellitus, type 2) indio soraya April 30, 2024 9:21am HLD (hyperlipidemia) deleted y 2024 9:21am Chronic HFrEF (heart failure with reduced ejection fraction) acute July 14, 2024 9:36am CKD (chronic kidney disease) stage 3, GFR 30-59 ml/min acute July 14, 2024 9:36am Gross hematuria acute June 9:36am Hyperkalemia acute July 14, 2024 9:36am Hypertensive chronic kidney disease with stage 1 through stage 4 chronic ki acute July 14, 2024 9:36am Secondary hyperparathyroidism acute July 14, 2024 9:36am Type 2 diabetes 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 acute July 14, 2024 9:36am Chronic HFrEF (heart failure with reduced ejection fraction) acute July 27, 2024 11:19am Chronic kidney disease acute Ap ril 2024 11:19am Gross hematuria acute June 11:19am HTN (hypertension) acute July 27, 2024 11:19am Hypercholesterolemia acute Apri l 2024 11:19am Hypertensive chronic kidney disease acute July 27, 2024 11:19am Ischemic cardiomyopathy acute A pril 2024 11:19am Pulmonary nodule acute July 272024 11:19am Type 2 diabetes 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 acute July 27, 2024 11:19am Type 2 diabetes mellitus wit h hyperglycemia acute July 27, 2024 11:19am [facility] Work Phone: 1(192) 860-567501-16-2025 Evaluation note* Diagnosis Onset Date Resolution Status Admit Date Chronic HFrEF (heart failure with reduced ejection fraction) acute Aprua ry 2024 8:19am Chronic kidney disease acute Ja nuary 2024 8:19am HTN (hypertension) acute y 2024 8:19am Hypercholesterolemia acute Desean lee ann2024 8:19am Ischemic cardiomyopathy acute J anuary 2024 8:19am Pulmonary nodule acute April 16, 2024 8:19am Type 2 diabetes mellitus wit h hyperglycemia acute April 16 8:19am BMI 28.0-28.9,adult acute 2024 9:21am Dietary counseling and surveillance acute April 30 9:21am HTN (hypertension) acute 2024 9:21am DM2 (diabetes mellitus, type 2) indio soraya April 30, 2024 9:21am HLD (hyperlipidemia) deleted 2024 9:21am [facility] Work Phone: 1(224) 639-500801-16-2025 Evaluation note* Diagnosis Onset Date Resolution Status Admit Date Chronic HFrEF (heart failure with reduced ejection fraction) acute 2024 8:19am Chronic kidney disease acute nuary 2024 8:19am HTN (hypertension) acute 2024 8:19am Hypercholesterolemia acute 2024 8:19am Ischemic cardiomyopathy acute J anuary 2024 8:19am Pulmonary nodule acute April 16, 2024 8:19am Type 2 diabetes mellitus wit h hyperglycemia acute April 16 8:19am BMI 28.0-28.9,adult acute 2024 9:21am Dietary counseling and surveillance acute April 30 9:21am HTN (hypertension) acute 2024 9:21am DM2 (diabetes mellitus, type 2) indio soraya April 30, 2024 9:21am HLD (hyperlipidemia) deleted 2024 9:21am Chronic HFrEF (heart failure with reduced ejection fraction) acute July 14, 2024 9:36am CKD (chronic kidney disease) stage 3, GFR 30-59 ml/min acute July 14, 2024 9:36am Gross hematuria acute June 9:36am Hyperkalemia acute July 14, 2024 9:36am Hypertensive chronic kidney disease with stage 1 through stage 4 chronic ki acute July 14, 2024 9:36am Secondary hyperparathyroidism acute July 14, 2024 9:36am Type 2 diabetes 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 acute July 14, 2024 9:36am [facility] Work Phone: 1(348) 410-529701-02-2025 History of Present illness Narrative* Kenneth Tavera, MAURICEM - 04/02/2024 11:50 AM EST Patient: Lani [...] retinopathy (CMS/HCC) HTN (hypertension) (CMS/HCC) Hypercholesteremia (CMS/HCC) [place] (myocardial infarction) (CMS/HCC) 2021 Two total: 02/20, [...] in the morning., Disp: , Rfl: HYDROcodone-acetaminophen ([place]) 5-325 MG tablet, TAKE 1 TABLET BY [...] Strain: Low Risk (02/13/2024) Received from [facility] Overall Financial Resource Strain (CARDIA) Difficulty of Paying Living Expenses: Not very hard Food Insecurity: No Food Insecurity (02/13/2024) Received from [facility] Hunger Vital Sign Within the past 12 months, you worried that your food would run out before you got the money to buymore.: Never true Ran Out of Food in the Last Year: Not on file Transportation Needs: No Transportation Needs (02/13/2024) Received from [facility] Transportation In the past 12 months, has lack of transportation kept you from medical appointments or from getting medications?: No Lack of Transportation (Non-Medical): Not on file Physical Activity: Not on file Stress: Not on file Social Connections: Not on file Intimate Partner Violence: Unknown (02/13/2024) Received from [facility] Humiliation, Afraid, Rape, and Kick questionnaire Fear of Current or Ex-Partner: No Emotionally Abused: Not on file Physically Abused: Not on file Sexually Abused: Not on file Housing Stability: Low Risk (02/13/2024) Received from [facility] Housing Stability Vital Sign In the last 12 months, was there a time when you were not able to pay the mortgage or rent on time?: No Number of Times Moved in the Last Year: Not on file At any time in the past 12 months, were you homeless or living in a detention (including now)?: No ROS: General: denies fever, [...] and negative PT pedal pulses NEURO: 5.07 [place] Chun monofilament test diminished to digits and forefoot bilaterally 125Hz tuning fork diminished to 1st MPJ bilaterally ORTHO: Positive pain on palpation to nails 1 through 10 ASSESSMENT 1. Diabetes 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, without long-term current use of insulin ([facility]) 2. Pain due to onychomycosis of toenails [...] him Kenneth Tavera DPM documented in this encounterChristian [id number] NoteUT Cardiology Consult Note Reason for visit: Complete heart block on event monitor, HFrEF 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%, atrial tachycardia 03/10/24 Patient here for 5 mo follow up bradycardia, complete heart block s/p PPM per Dr. Bishop. He was also admitted to [facility] for NSTEMI last month. Underwent heart cath with Dr. Pena on 02/12. He was started on Ranexa and lisinopril was stopped. Denies chest pain, SOB, and palpitations. Gets lightheaded at times, but no syncopal episodes. 05/07/23 Patient is s/p BiV ICD. 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 patient has got good device threshold. [...] and hypertension. He was recently admitted to [facility] for NSTEMI. Had inpatient stress test and heart cath. Denies SOB but still having chest pain and has taken nitroglycerin a few times for relief. Had CT chest last week s/p discharge. Cardiac catheterization revealed patent bypass grafts and worsening [place] vessel disease. Medications were adjusted. I had [...] Tobacco Use: Low Risk (01/23/2024) [facility] Smoking Tobacco Use: Never Smokeless Tobacco Use: Never Passive Exposure: Not on file Alcohol Use: Not At Risk (03/13/2018) [facility] [employer] [facility] AUDIT-C Frequency of Alcohol Consumption: Never Average [...] Abused: Not on f (more content not included)...[facility]11-25-2024 Evaluation note* Diagnosis Onset Date Resolution Status [...] mellitus wit h hyperglycemia acute February 23, 024 9:29am Controlled type 2 diabetes mellitus with diabetic peripheral angiopathy wit deleted February 23 9:29am Chronic HFrEF (heart failure with reduced ejection fraction) acute Janua ry 16th, 2025 8:19am Chronic kidney disease acute Ja nuary [...] 2024 9:21am HLD (hyperlipidemia) deleted 2024 9:21am [facility] Work Phone: 1(979) 812-269711-15-2024 NoteHospital Medicine Discharge Summary Final Discharge Diagnosis: NSTEMI CAD s/p CABG, PCI 08/2023 Chronic heart failure with reduced ejection fraction, NYHA class II Insulin-dependent type 2 diabetes mellitus Chronic kidney disease stage III A Third degree AV block with AICD/pacemaker Essential hypertension Carotid stenosis Hyperlipidemia Peripheral vascular disease Admission Diagnosis: NSTEMI (non-ST elevated myocardial infarction) ([facility]) [I21.4] Hospital course: Lani Lizama is an 73 y.o. male who came from Transferred from [facility] with NSTEMI with NSTEMI. 71-year-old gentleman [...] procedure on that. Patient was transferred from [facility] to [facility] where he was seen for chest pain that has been going on for most of the day causing him to take nitroglycerin on 5 separate incidences and with intensification of the chest pain at shortening intervals that caused him to call the ambulance. At [facility] workup did show that patient had rising troponins initial 1 was 23 and then 85 isa intensity troponin. There was no mention change on the EKG as was reported to me by the ER physician Dr. Lagos at [facility]. Other workup that was done at [facility] included basic metabolic panel that showed [...] history as above. The ER physician from [facility] had spoken to our research physician here who accepted the patient for transfer to [facility] for possible trip to the Identity Management Consultant very early this morning depending on the [...] During Admission: Cardiology and Nephrology Dear Dr. Cheire DO, Thomas is advised to follow up with you within 1-2 weeks. Items to follow up in ambulatory setting: Follow-up serial BMPs Follow-up with: Cardiology and PCP Scheduled appointments: Future Appointments Date Time Provider Department Center 03/10/2024 10:45 AM Kevin Arteaga MD [facility] Your medication list START taking these [...] 40 mg tablet Commonly (more content not included)...[facility] Progress Note - 02/13/2024 8:36 AM; Room: [address] [place] [address] Admission: 02/13/2024 2:53 AM; Length of stay: 0 days THE HOSPITALIST TEAM PREFERS TO USE [employer] CHAT FOR COMMUNICATION 7AM-7PM. IF I DO NOT RESPOND WITHIN 15 MINUTES, PLEASE PAGE ME/CALL THROUGH THE GRADES 1 THRU 5 TEACHER. FROM 7PM-7AM, PLEASE PAGE [phone](COVR) Code Status: Full Code Barriers to Discharge: NSTEMI Expected Discharge Date: 2-3 days Discharge Destination: home Overview Patient is seen for evaluation and management of chest pain. Subjective Patient was examined at bedside resting comfortably. He presented overnight to ED after transfer from [place]. He states that he had crushing chest [...] Principal Problem: NSTEMI (non-ST elevated myocardial infarction) ([facility]) Active Problems: Coronary atherosclerosis Essential hypertension History of coronary artery bypass surgery Mixed hyperlipidemia Stage 3 chronic kidney disease ([facility]/HCC) Chest pain Type 2 diabetes mellitus with hyperglycemia ([facility]) PVD (peripheral vascular disease) ([facility]) Carotid stenosis, asymptomatic Assessment and Plan Lani Lizama is a 73 year old male with a past medical history of CAD with 9 stents, 5 vessel CABG, HTN, HLD, DM2, third degree AV block with pacemaker/AICD presented as a transfer from [place] ED with worsening crushing, radiating chest pain. Patient is being admitted to [facility] and cardiology has been consulted. Tentative [...] subcutaneous, Nightly isosorbide mononitra (more content not included)...[facility]11-14-2024 NoteHospital Medicine History and Physical 02/13/2024 3:40 AM THE HOSPITALIST TEAM PREFERS TO USE [employer] FOR NON-URGENT COMMUNICATION 7AM-7PM. IF I DO NOT RESPOND WITHIN 20 MINUTES OR URGENT MATTERS, PLEASE CALL THROUGH THE GRADES 1 THRU 5 TEACHER. FROM 7PM-7AM, PLEASE PAGE [phone](COVR). Chief Complaint No chief complaint on file. History of Present Illness Lani Lizama is an 73 y.o. male who came from Transferred from [facility] with NSTEMI with NSTEMI. 71-year-old gentleman [...] procedure on that. Patient was transferred from [facility] to [facility] where he was seen for chest pain that has been going on for most of the day causing him to take nitroglycerin on 5 separate incidences and with intensification of the chest pain at shortening intervals that caused him to call the ambulance. At [facility] workup did show that patient had rising troponins initial 1 was 23 and then 85 isa intensity troponin. There was no mention change on the EKG as was reported to me by the ER physician Dr. Lagos at [facility]. Other workup that was done at [facility] included basic metabolic panel that showed [...] history as above. The ER physician from [facility] had spoken to our research physician here who accepted the patient for transfer to [facility] for possible trip to the Identity Management Consultant very early this morning depending on the [...] Principal Problem: NSTEMI (non-ST elevated myocardial infarction) (CMS/HCC) Active Problems: Coronary atherosclerosis Essential hypertension History of coronary artery bypass surgery Mixed hyperlipidemia Stage 3 chronic kidney disease (CMS/HCC) Chest pain Type 2 diabetes mellitus with hyperglycemia (CMS/HCC) PVD (peripheral vascular disease) (CMS/HCC) Carotid stenosis, asymptomatic Assessment and Plan PLAN OF CARE: 71-year-old gentleman with very profuse history of cardiovascular disease including prior CAD with stents and CABG as well as hypertension and HLD comes seen with acute NSTEMI. Patient is being admitted to [facility] and cardiology has been consulted with possible trip to the Identity Management Consultant at the earliest possible time by cardiology. [...] be -Consult cardiology (done) (more content not included)...[facility]10-24-2024 History of Present illness Narrative* Kenneth Tavera [...] has only been using prescribed or recommended vzwg-yhv-vgzsrrn cream with some improvement. Patient also has longstanding history of multiple MIs and cardiac history Allergies: Allergies Allergen Reactions Other Other Reaction(s): Unknown Received name: Nkda Past Medical History: Past Medical History: Diagnosis Date Diabetic retinopathy (CMS/HCC) HTN (hypertension) (CMS/HCC) Hypercholesteremia (CMS/HCC) [place] (myocardial infarction) ([facility]) 2021 Two total: 02/20, 03/22 Type 1 [...] in the morning., Disp: , Rfl: HYDROcodone-acetaminophen ([place]) 5-325 MG tablet, TAKE 1 TABLET BY [...] Strain: Low Risk (09/26/2023) Received from [facility] Overall Financial Resource Strain (CARDIA) Difficulty of Paying Living Expenses: Not very hard Food Insecurity: No Food Insecurity (09/26/2023) Received from [facility] Hunger Vital Sign Within the past 12 months, you worried that your food would run out before you got the money to buymore.: Never true Ran Out of Food in the Last Year: Not on file Transportation Needs: No Transportation Needs (09/26/2023) Received from [facility] Transportation In the past 12 months, has lack of transportation kept you from medical appointments or from getting medications?: No Lack of Transportation (Non-Medical): Not on file Physical Activity: Not on file Stress: Not on file Social Connections: Not on file Intimate Partner Violence: Unknown (09/26/2023) Received from [facility] Humiliation, Afraid, Rape, and Kick questionnaire Fear of Current or Ex-Partner: No Emotionally Abused: Not on file Physically Abused: Not on file Sexually Abused: Not on file Housing Stability: Low Risk (09/26/2023) Received from [facility] Housing Stability Vital Sign Unable to Pay [...] and negative PT pedal pulses NEURO: 5.07 [place] Chun monofilament test diminished to digits and forefoot bilaterally 125Hz tuning fork diminished to 1st MPJ bilaterally ORTHO: Positive pain on palpation to nails 1 through 10 ASSESSMENT 1. Diabetes 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, without long-term current use of insulin ([facility]) 2. Pain due to onychomycosis of toenails [...] him Kenneth Tavera DPM documented in this encounterChristian [id number] [facility] Note Chief Complaint: Patient here for follow up [facility] for NSTEMI. Underwent PCI on 09/27/[address] Foreman. Says he feels much better s/p intervention. Denies chest pain, SOB, palpitations, and lightheadedness/syncope. HPI: Lani Lizama is a 72 y.o. male Hospital Medicine Discharge Summary Final Discharge Diagnosis: #NSTEMI #chronic HFrEF NYHA class I #CAD #HTN #Diabetes #Hx bradycardia Admission Diagnosis: NSTEMI (non-ST elevated myocardial infarction) ([facility]) [I21.4] Hospital course: 72-year-old male with past medical history significant for CAD status post CABG x 5 vessels and history of 7 PCI's who presented to the hospital due to chest pain. 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 Patient reports compliance with his medications and that he is not requiring diuretics. Initial evaluation at the outside hospital showed elevated high-sensitivity troponins and he was sent to [facility] for an evaluation by cardiology. Patient [...] 98% BMI 27.88 kg (more content not included)...[facility]06-29-2024 Note Attestation signed by Kevin Arteaga MD [...] Nightly, Heidy Dee MD, 40 mg at 09/27/232133 Insert peripheral IV, , , Once AND Saline lock IV, , , Once AND sodium chloride flush 10 mL, 10 mL, intravenous, q8h PRN, Catalina Marin MD traMADol (Ultram) tablet 50 mg, 50 mg, oral, q6h PRN, Anas Fares, 50 mg at 09/27/23 1744 Objective: Patient [...] Value Ventricular Rate 78 Atrial Rate 78 OR Interval 160 QRS DURATION 144 QT Interval 444 QTC CALCULATION(BAZETT) 506 P Garrison 49 R-Garrison -41 T Wave Garrison 106 Impression Atrial-sensed ventricular-paced rhythm Abnormal ECG When compared with ECG of 26-SEP-2023 18:59, Vent. rate has decreased BY 3 BPM Lab Results Component Value Date TROPONINI 3.05 (HH) 09/27/2023 Complete Echo (TTE) w/wo Imaging Agent, Strain, 3D, Bubble Study Result Date: 09/27/2023 1 1 [facility] Heart Station [address] [place] [address] [phone] (fax) Echocardiogram-[facility] Name: LANI LIZAMA Study Date: 09/27/2023 07:42 AM B/P: 118 mmHg/57 mmHg (more content not included)...[facility] 09-28-2023 NoteHospital Medicine Discharge Summary Final Discharge Diagnosis: #NSTEMI #chronic HFrEF NYHA class I #CAD #HTN #Diabetes #Hx bradycardia Admission Diagnosis: NSTEMI (non-ST elevated myocardial infarction) ([facility]) [I21.4] Hospital course: 72-year-old male with past medical history significant for CAD status post CABG x 5 vessels and history of 7 PCI's who presented to the hospital due to chest pain. 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 Patient reports compliance with his medications and that he is not requiring diuretics. Initial evaluation at the outside hospital showed elevated high-sensitivity troponins and he was sent to [facility] for an evaluation by cardiology. Patient [...] Heidy Dee MD Hospital Medicine 09/28/2023 11:15 [facility] NotePatient: Lani Lizama Procedure Information Date/Time: 09/27/23 1300 Procedure: Coronary angiography Location: [facility] ARCHEOLOGY PROFESSOR 3 / [facility] (Cath) Providers: Luisito Foreman [...] discussed with fellow and attending. Additional Equipment RequestsLake [facility] Note Adult Nutrition Assessment: Name: Lani Lizama Date: 1950 Date of Visit: 09/27/23 Admission Dx: NSTEMI (non-ST elevated myocardial infarction) (CMS/HCC) [I21.4] Reason for assessment: high risk -wound Information obtained from: patient, family, medical record, and nursing -son at bedside Past Medical History: Diagnosis Date Carotid artery stenosis Coronary artery disease Diabetes mellitus ([facility]) Hyperlipidemia Hypertension PVD (peripheral vascular disease) ([facility]) Third degree heart block ([facility]) CABG x5, stents, EF 30%, HF Current [...] NA 140 09/27/2023 0359 K 4.3 09/27/2023 035 MG 2.0 10/15/2018 [...] Question: Reason for NPO: Answer: Operation/Procedure 09/26/23 1713 Percent Meals Eaten (%): 100 (09/26/23 1851 : Carolina Bragg RN) Nutrition Risk: Low Malnutrition Assessment: Patient at risk for malnutrition according to hospital criteria, but does not meet the clinical characteristics per the Academy of Nutrition and Dietetics, and the [place] [employer] of Enteral and Parenteral Nutrition to [...] compliance w/ MNT Contact the dietitian via [employer] chat 8A-4P Saturday through Saturday or call extension [phone]. For weekends & holidays, the dietitian can be reached via pager [phone] from 9A-3P. Unable to respond to [employer] chat messages on Saturday & .[facility]06-28-2024 Note Attestation signed by Heidy Dee MD [...] Progress Note - 09/27/2023 10:26 AM; Room: [address] [place] [address] Admission: 09/26/2023 4:35 PM; Length of stay: 1 days THE HOSPITALIST TEAM PREFERS TO USE EPIC CHAT FOR COMMUNICATION 7AM-7PM. IF I DO NOT RESPOND WITHIN 15 MINUTES, PLEASE PAGE ME/CALL THROUGH THE GRADES 1 THRU 5 TEACHER. FROM 7PM-7AM, PLEASE PAGE [phone](COVR) Code Status: Full Code Barriers to Discharge: [...] disease, 3rd degree heart block (s/p BiV SCREW SUPERVISOR-D) that presented to OSH w/ c/o chest pain that radiated to left arm and jaw. Pain was described as centrally-located and pressure-like, and unrelieved by Nitroglycerin x3. Patient started on nitroglycerin drip which provided relief. Initial tropin was unremarkable, but repeat was elevated (2962). He was started on heparin and transferred to [facility]. Today, patient is examined at bedside, [...] Principal Problem: NSTEMI (non-ST elevated myocardial infarction) ([facility]) Assessment and Plan #NSTEMI - Supplemental oxygen NC - DAPT (aspirin 81 mg, daily; and Plavix 75 mg, daily) - Metoprolol Succinate XL (150 mg, daily) - Rosuvastatin (40 mg, nightly) #HFrEF - Echo pending #CAD - Angiogram planned today #HTN #Diabetes - Insulin sliding scale - Goal blood sugar 140-180 #Hx bradycardia - s/p SCREW SUPERVISOR-D Wounds: Wound 09/26/23 Other (comment) Toe [...] scab Assessments 09/26/2023 7:37 PM Site Assessment Jeff;Other (Comment) (scabbed over) VTE Prophylaxis: IV heparin Scheduled Meds ALPRAZolam, 0.5 mg, oral, TID aspirin, 81 mg, oral, Daily (more content not included)...[facility]06-10-2024 [facility] Note Chief Complaint: [...] appropriate mood, affect, and judgement. Investigations: Echocardiogram-[facility] Name: LANI LIZAMA Study Date: 01/25/2023 12:56 PM B/P: 138 mmHg/71 mmHg HR: Date of : 1950 Location: [facility] Height: 67 in. Age: 72 year(s) Patient Room : 314 Weight: 171 lb. Gender: Male Patient Status: InPt BSA: 1.89 m2 Indication: Chest Pain Examination: Echocardiogram (Complete), Lumason Contrast Image Quality: Poor Patient Consent: Procedure explained to patient s p @ c 3 Conclusions Left Ventricle: The left ventricle is normal size. Global left connie (more content not included)...[facility]01-30-2024 Evaluation note* Encounter Date Diagnosis Assessment Notes Treatment Notes Treatment Clinical Notes Apr, Chronic HFrEF (heart failure with reduced ejection fraction) (ICD-10 - I50.22) [employer] Other 12-12-2023 Evaluation note* Encounter Date Diagnosis [...] age/comorbidities 2. Blood glucose levels according to [employer] cgm download 02/27/2023- 023: Average glucose 134. [...] PAP-Jardiance was denied, pt given information on [facility] diabetes discount program instructed to [...] hypertension material was printed on diony. Mar, manager intermediate current use of insulin (ICD-10 - Z79.4) Mar, Hyperlipidemia (ICD-10 - E78.5) High cholesterol material was printed 05/2022 ldl 69- on statin. Mar, BMI 27.0-27.9,adult (ICD-10 - Z68.27) Eating healthy: tips to make it easier material was printed [employer] Other 2023 Evaluation note* Encounter Date Diagnosis Assessment Notes Treatment Notes Treatment Clinical Notes Jan, Chronic HFrEF (heart failure with reduced ejection fraction) (ICD-10 - I50.22) [employer] Other 10-09-2023 Evaluation note* Encounter Date Diagnosis [...] Continue statins. Monitor LFTs and lipid profile. [employer] Other 10-06-2023 Evaluation note* Encounter Date Diagnosis Assessment Notes Treatment Notes Treatment Clinical Notes Dec, Ground glass opacity present on imaging of lung (ICD-10 - R91.8) CT: RUL, RML - 12/2022Dec, Pulmonary nodule (ICD-10 - R91.1) CT: 7mm RML nodule - 12/2022 [employer] Other 10-03-2023 Evaluation note* Encounter Date Diagnosis Assessment Notes Treatment Notes Treatment Clinical Notes Dec, Stage 3b chronic kidney disease (ICD-10 - N18.32) [employer] Other 10-02-2023 Evaluation note* Encounter Date Diagnosis [...] sputum production or hemoptysis Denies DE [place] GAZRA, orthopnea or increasing edema. Recommend repeat CT [...] risk for cerebrovascular and cardiovascular disease. Dec, manager intermediate current use of insulin (ICD-10 - Z79.4) [...] be contributing - must discuss w/ Cardiology [employer] Other 07-03-2023 Evaluation note* Encounter Date Diagnosis Assessment Notes Treatment Notes Treatment Clinical Notes Sep, ASHD (arteriosclerotic heart disease) (ICD-10 - I25.10) [employer] Other 06-21-2023 Evaluation note* Encounter Date Diagnosis Assessment Notes Treatment Notes Treatment Clinical Notes Aug, ASHD (arteriosclerotic heart disease) (ICD-10 - I25.10) [employer] Other 06-02-2023 Evaluation note* Encounter Date Diagnosis [...] inserts to prevent callus formation.Fall precautions. Aug, snf (current) use of insulin (ICD-10 - Z79.4) [employer] Other 05-11-2023 Evaluation note* Encounter Date Diagnosis Assessment Notes Treatment Notes Treatment Clinical Notes July, Ground glass opacity present on imaging of lung (ICD-10 - R91.8) CT: RML,RUL infiltrate - 12/2021, CT: RML,RUL improved - 03/2022 CT: RML, RUL, GGO improved - 07/2022 [employer] Other 04-03-2023 Evaluation note* Encounter Date Diagnosis [...] D and PTH. Advised low phosphorus diet. [employer] Other 03-30-2023 Evaluation note* Encounter Date Diagnosis [...] are reviewed at the office visit. May, snf (current) use of insulin (ICD-10 - Z79.4) [...] (ICD-10 - Z12.5) Yearly PSA and ABDELRAHMAN [employer] Other 03-28-2023 Evaluation note* Encounter Date Diagnosis [...] 2. Blood glucose levels stable. According to [employer] cgm download 06/13/2022- 3: Average glucose 190. [...] hypertension material was printed on diony. May, manager intermediate current use of insulin (ICD-10 - Z79.4) May, Hyperlipidemia (ICD-10 - E78.5) High cholesterol material was printed 05/2022 ldl 69- on statin. May, BMI 27.0-27.9,adult (ICD-10 - Z68.27) Eating healthy: tips to make it easier material was printed [employer] Other 02-25-2023 Evaluation note* Encounter Date Diagnosis Assessment Notes Treatment Notes Treatment Clinical Notes May, Abnormality of lung on CXR (ICD-10 - R91.8) [employer] Other 12-20-2022 Evaluation note* Encounter Date Diagnosis [...] 2. Blood glucose levels stable. According to [employer] cgm download 03/07/2022-03/20/20 22: Average glucose 144. Above 250-0%, >180- 15%, 70-180-85%, <70-0%, <54-0%. CV 24.3%. Reviewed download with pt, no incidence of hypoglcyemia noted. Glucose rise between 12-6pm. D/t current shortage of ozempic, recommend pt reduce dose to 0.5mg once weekly until shipment recieved from [facility], then increase to 1mg once [...] hypertension material was printed on [employer]ion[employer]. Mar, snf current use of insulin (ICD-10 - Z79.4) Mar, Hyperlipidemia (ICD-10 - E78.5) High cholesterol material was printed 06/2021 ldl 48- on statin. Mar, BMI 26.0-26.9,adult (ICD-10 - Z68.26) Eating healthy: tips to make it easier material was printed 9 pound weight loss from last visit, continue with weight loss efforts [facility] [employer] Other 11-10-2022 Evaluation note* Encounter Date Diagnosis Assessment Notes Treatment Notes Treatment Clinical Notes Jan, Diabetes mellitus with chronic kidney disease (ICD-10 - E11.22) [employer] [facility] [employer] Other 10-19-2022 Discharge summary Author [facility] January 17, 2022 3:02pm Note Date/Time January 17, 2022 3 :02pm [facility] [address] [place] [address] Discharge Summary Signed Patient: Lani Lizama MR#: [id number] : 1950 Acct:[id number] Age/Sex: 71 / M Adm Date: 2 Loc: Room: [address] [place] [address]: Gagan Shahid DO Copies to: [...] thought this to be indigestion/GERD in the manager sustainability hours howeverthis progressively worsened prompting his presentation [...] consulted for management of non-ST segment elevation [place]. Cardiac catheterization was undergone on 01/16/2022 showing [...] levels as before. DISCHARGE INSTRUCTIONS FOR CARDIAC ARCHEOLOGY PROFESSOR PHONE NUMBER OF YOUR PHYSICIAN: [phone] PROCEDURE: Heart Cath The following instructions have [...] cold, numb, blue or white, call the research physician immediately. 4. ACTIVITY: You are advised to [...] bottle, follow the instructions on the bottle. [facility] is not responsible for incorrect [...] <Electronically signed by Gagan Shahid DO> 01/17/22 8593 [facility] Work Phone: 1(638) 630-616110-19-2022 Progress note Author Luis Alfredo Borges [facility] January 17, 2022 11:47am Note Date/Time January 17, 2022 1 1:47am [facility] [address] [place] [address] Cardiology Progress Note Signed Patient: Lani Lizama MR#: [id number] : 1950 Acct:[id number] Age/Sex: 71 / M Adm Date: 2 Loc: Room: [address] [place] [address] Type: ADM IN Attending Dr: Gagan Shahid [...] is also notable worsening of the patient's [place] occlusive coronaryheart disease particularly in the microcirculation [...] daily 3. Patient does have a primary research physician near his home in [place]. We willschedule him 1 follow-up visit [facility] for left wrist check and also for counseling and reinforcement/referral to phase 2 monitored cardiac rehabilitation which the patient desires to perform in [place]. 4. Instructed the patient that he can [...] by Luis Alfredo Borges MD> 01/17/22 1147 [facility] Work Phone: 1(608) 231-989110-18-2022 Progress note Author Gagan Shahid [facility] January 16, 2022 4:09pm Note Date/Time January 16, 2022 4 :09pm [facility] [address] [place] [address] Hospitalist Progress Note Signed Patient: Lani Lizama MR#: [id number] : 1950 Acct:[id number] Age/Sex: 71 / M Adm Date: 2 Loc: Room: [address] [place] [address] Type: ADM IN Attending Dr: Gagan Shahid [...] signed by Gagan Shahid DO> 01/16/22 1609 [facility] Work Phone: 1(674) 288-707910-18-2022 [facility] Consult note Author Luis Alfredo Borges [facility] January 16, 2022 10:24am Note Date/Time January 16, 2022 1 0:24am [facility] [address] [place] [address] Cardiology Consult Note Signed Patient: Lani Lizama MR#: [id number] : 1950 Acct:[id number] Age/Sex: 71 / M Adm Date: 2 Loc: Room: [address] [place] [address] Type: ADM IN Attending Dr: Gagan Shahid [...] well as history [facility] per Dr. Saldaña in May [...] EMS and was taken to [facility] emergency department. There the patient was [...] Lymph # (Auto) 1.0 1.6 (1.00-4.8) x10E3/uL [place] # (Auto) 0.4 0.8 (0.0-0.8) x10E3/uL Eos [...] nonspecific abnormality, ST segment, and/or T wave [place], pacemaker, normal Normal tracing: no change compared [...] by Luis Alfredo Borges MD> 01/16/22 1024 [facility] Work Phone: 1(342) 167-390610-17-2022 History and physical note Author Gagan Shahid [facility] January 15, 2022 6:56pm Note Date/Time January 15, 2022 6 :02pm [facility] [address] [place] [address] Hospitalist H&P Signed Patient: Lani Lizama MR#: [id number] : 1950 Acct:[id number] Age/Sex: 71 / M Adm Date: 2 Loc: Room: [address] [place] [address] Type: ADM IN Attending Dr: Gagan Shahid [...] need for cardiovascular evaluation [facility] and cardiology [...] % (Auto) 13.8 % (.) 01/15/22 15:00 [place] % (Auto) 6.1 % (.) 01/15/22 15:00 Eos % (Auto) 0.9 % (.) 01/15/22 15:00 Baso % (Auto) 0.5 % (.) 01/15/22 15:00 Neut # (Auto) 5.6 x10E3/uL (1.8-7.7) 01/15/22 15:00 Lymph # (Auto) 1.0 x10E3/uL (1.00-4.8) 01/15/22 15:00 [place] # (Auto) 0.4 x10E3/uL (0.0-0.8) 01/15/22 15:00 [...] <Electronically signed by Gagan Shahid DO> 01/15/22 652 [facility] Work Phone: [phone]) 740-609209-19-2022 Evaluation note* Encounter Date Diagnosis Assessment Notes [...] hypertension material was printed on diony. Nov, snf current use of insulin (ICD-10 - Z79.4) Nov, Hyperlipidemia (ICD-10 - E78.5) High cholesterol material was printed 06/2021 ldl 48- on statin. Nov, BMI 27.0-27.9,adult (ICD-10 - Z68.27) Eating healthy: tips to make it easier material was printed 22 pound weight loss from last visit, continue with weight loss efforts [employer] Other 07-22-2022 Miscellaneous Notes* Telephone Encounter - Vee Day - 10/20/2021 9:42 AM EDT New CBC order. Vee [facility]* Encounter Date Diagnosis Assessment Notes [...] Blood glucose levels above improved. According to [employer] cgm download 07/04/2021-07/17/2021 : Average glucose 146. [...] hypertension material was printed on diony. Jun, snf current use of insulin (ICD-10 - Z79.4) Jun, BMI 30.0-30.9,adult (ICD-10 - Z68.30) Eating healthy: tips to make it easier material was printed see above Jun, Bradycardia (ICD-10 - R00.1) asymptomatic- f/u with cardiology has upcoming apt. If symptomatic i.e. light headed notify sooner [employer] Other 03-21-2022 Evaluation note* Encounter Date Diagnosis Assessment Notes Treatment Notes Treatment Clinical Notes May, Gastro-esophageal reflux disease with esophagitis, without bleeding (ICD-10 - K21.00) [employer] Other 03-08-2022 Evaluation note* Encounter Date Diagnosis [...] His MBD parameters are within the goal. [employer] Other 02-21-2022 Evaluation note* Encounter Date Diagnosis Assessment Notes Treatment Notes Treatment Clinical Notes May, Diabetes mellitus with chronic kidney disease (ICD-10 - E11.22) [employer] Other 01-10-2022 Evaluation note* Encounter Date Diagnosis Assessment Notes Treatment Notes Treatment Clinical Notes Apr, Type 2 diabetes mellitus with hyperglycemia (ICD-10 - E11.65) [employer] Other 01-10-2022 Evaluation note* Encounter Date Diagnosis [...] Blood glucose levels above improved. According to [employer] cgm download 03/28/2021-04/10/19 22: Average glucose 167. [...] was also given rx assist paperwork for [facility] if he does not qualify for BI/jardiance. Ozempic will increase to 1mg once weekly. Apr, Hyperlipidemia (ICD-10 - E78.5) High cholesterol material was printed 07/2020 ldl 64 trig 207- on statin. Apr, HTN (hypertension) (ICD-10 - I10) About hypertension material was printed on diony. Apr, snf current use of insulin (ICD-10 - Z79.4) Apr, BMI 30.0-30.9,adult (ICD-10 - Z68.30) Eating healthy: tips to make it easier material was printed see above [employer] Other 11-16-2021 Evaluation note* Encounter Date Diagnosis [...] His MBD parameters are within the goal. [employer] Other 10-05-2021 Evaluation note* Encounter Date Diagnosis [...] above target with increased variability. According to [employer] cgm download 12/07/2020-01/03/2021: Average glucose 135. Above [...] hypertension material was printed on diony. Dec, snf current use of insulin (ICD-10 - Z79.4) Dec, BMI 31.0-31.9,adult (ICD-10 - Z68.31) Eating healthy: tips to make it easier material was printed 12 pound weight loss from last visit, continue with weight loss efforts Dec, Bradycardia (ICD-10 - R00.1) Pt asymptomatic. Notified research physician Dr. Velazquez. Pt has apt on Saturday next week. [facility] [employer] Other Chief complaint+Reason for visit Narrative* Chief Complaint 4 month follow up Reason for Visit BMI 28.0-28.9,adult Dietary counseling and surveillance HTN (hypertension) Chronic HFrEF (heart failure with reduced ejection fraction) Chronic kidney disease [id number] HTN (hypertension) Hypercholesterolemia Ischemic cardiomyopathy Pulmonary nodule Type 2 diabetes mellitus with hyperglycemia [facility] Work Phone: Evaluation + Plan note No data available for this section General Surgery Luis Enrique Evaluation + Plan note Future Appointments Appointment Date:08/04/2024 10:00:00 AM Scheduled Provider: Location:[facility] Appointment Type:Urology FT Diagnostic Tests Pending * Urine Cytology ([facility]) 08/03/24 [facility] evaluation noteNo [facility] [place] [employer] Other evaluation note* Diagnosis Monoclonal gammopathy- Primary Monoclonal paraproteinemia [facility] Diagnosis Onset Date Resolution Status Non-ST elevation myocardial infarction (NSTEMI), initial care episode acute [facility] Work Phone: evaluation noteNo assessment information available [facility] Work Phone: evaluation note* Diagnosis Onset Date Resolution Status BMI 26.0-26.9,adult acute Dietary counseling and surveillance acute DM2 (diabetes mellitus, type 2) acute HLD (hyperlipidemia) acute HTN (hypertension) acute [facility] Work Phone: evaluldqqm note* Diagnosis Onset Date Resolution Status BMI 26.0-26.9,adult acute Dietary counseling and surveillance acute DM2 (diabetes mellitus, type 2) acute HLD (hyperlipidemia) acute HTN (hypertension) acute Chronic HFrEF (heart failure with reduced ejection fraction) acute CKD (chronic kidney disease) stage 3, GFR 30-59 ml/min acute HLD (hyperlipidemia) acute [id number] acute Secondary hyperparathyroidism acute Type 2 diabetes 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 acute [facility] Work Phone: evaluation note* Diagnosis Onset Date Resolution Status Dietary counseling and surveillance acute HTN (hypertension) acute Chronic HFrEF (heart failure with reduced ejection fraction) acute CKD (chronic kidney disease) stage 3, GFR 30-59 ml/min acute [id number] acute Secondary hyperparathyroidism acute Type 2 diabetes 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 acute Chronic HFrEF (heart failure with reduced ejection fraction) acute Chronic kidney disease acute HTN (hypertension) acute Hypercholesterolemia acute Ischemic cardiomyopathy acut e Pulmonary nodule acute Type 2 diabetes mellitus with hyperglycemia acute Medicare annual wellness visit, subsequent noneactive Screening PSA (prostate specific antigen) noneactive [facility] Work Phone: evaluation note* Diagnosis Onset Date [...] counseling and surveillance acute HTN (hypertension) acute [facility] Work Phone: evaluation note* Diagnosis Onset Date Resolution Status BMI 28.0-28.9,adult acute Dietary counseling and surveillance acute HTN (hypertension) acute Chronic HFrEF (heart failure with reduced ejection fraction) acute Chronic kidney disease acute [id number] acute HTN (hypertension) acute Hypercholesterolemia acute Ischemic cardiomyopathy acut e Pulmonary nodule acute Type 2 diabetes mellitus with hyperglycemia acute [facility] Work Phone: evaluation note* Diagnosis Onset Date [...] disease) stage 3, GFR 30-59 ml/min acute [id number] acute Secondary hyperparathyroidism acute Type 2 diabetes 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 acute [facility] Work Phone: evaluation note* Diagnosis Onset Date Resolution Status Chronic HFrEF (heart failure with reduced ejection fraction) acute Chronic kidney disease acute HTN (hypertension) acute Hypercholesterolemia acute Ischemic cardiomyopathy acut e Pulmonary nodule acute Type 2 diabetes mellitus with hyperglycemia acute Chronic HFrEF (heart failure with reduced ejection fraction) acute CKD (chronic kidney disease) stage 3, GFR 30-59 ml/min acute [id number] acute Secondary hyperparathyroidism acute Type 2 diabetes 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 acute BMI 27.0-27.9,adult acute Dietary counseling and surveillance acute HTN (hypertension) acute [facility] Work Phone: Evaluation note* Diagnosis Xerosis cutis- Primary Other specified disease of sebaceous glands Diabetes 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, without long-term current use of insulin (CMS/HCC) Pain due to onychomycosis of toenails of both feet documented in this encounter [facility] HealthcareEvaluation note* Diagnosis Diabetes 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, without long-term current use of insulin (CMS/HCC)- Primary Pain due to onychomycosis of toenails of both feet documented in this encounter [facility] HealthcareHistory general Narrative - Reported* Type [...] 11-25-16 Hospitalization History HEART STENT PLACED 03-20 [facility] [employer] Other History general Narrative - ReportedNortKind[facility] [place] [employer] Other History general Narrative - Reported* Type [...] 11-25-16 Hospitalization History HEART STENT PLACED 03-20 [employer] Other [employer] general Narrative - Reported* Type Description Date [...] 11-25-16 Hospitalization History HEART STENT PLACED 03-20 [employer] Other [employer] general Narrative - Reported* Type Description Date [...] 11-25-16 Hospitalization History HEART STENT PLACED 03-20 [employer] Other History general Narrative - Reported* Type [...] STENT PLACED 03-20 Hospitalization History SEE ABOVE [employer] Other History general Narrative - ReportedNortAdchemy Other History general Narrative - Reported* Type [...] STENT PLACED 03-20 Hospitalization History SEE ABOVE [employer] Other History general Narrative - Reported* Type [...] STENT PLACED 03-20 Hospitalization History SEE ABOVE [employer] Other History general Narrative - Reported* Type Description Date Medical History CAD s/p CABG Medical History DM2 Medical History HTN Medical History Hearts stents x6 Medical History Myeloma Medical History Diabetes Medical History CAD Medical History Hyperlipidemia Medical History COPD Medical History CKD Medical History GERD Medical History Hx of Covid 03/2020 Medical History Heart Attack 06/2020 Medical History Hx of Covid 2021 Medical History Gastritis Medical History pneumonia-10/2021 Medical [...] STENT PLACED 03-20 Hospitalization History SEE ABOVE [employer] Other History general Narrative - Reported* Type [...] History GGO and Pulmonary nodules Medical History AZ 01/21 Medical History Defibrilator 02/21 Surgical History [...] 03-20 Hospitalization History SEE ABOVE Hospitalization History [place] 01/21 [employer] Other Hospital Discharge instructions No data available for this section General Surgery Luis Enrique Hospital Discharge instructions Additional Instructions Monitor glucose levels as before. DISCHARGE INSTRUCTIONS FOR CARDIAC ARCHEOLOGY PROFESSOR PHONE NUMBER OF YOUR PHYSICIAN: [phone] PROCEDURE: Heart Cath The following instructions have [...] cold, numb, blue or white, call the research physician immediately. 4. ACTIVITY: You are advised to [...] bottle, follow the instructions on the bottle. [facility] is not responsible for incorrect prescription information provided by the patient during their visit. Do not stop your medications without consulting your health care provider. Please take the list with you to your next doctor's appointment. [facility] Work Phone: Hospital Discharge instructionsAmbulatory Orders* Referral to Podiatry Location: None Selected [facility] Work Phone: Hospital Discharge instructionsAmbulatory Orders* Referral to Urology Time Frame: 07/14/24, Location: None Selected [facility] Work Phone: Progress note No data available for this section General Surgery Luis Enrique Summary Purpose Family History No Family History [...] stage 3, GFR 30-59 ml/min HLD (hyperlipidemia) [id number] Secondary hyperparathyroidism Type 2 diabetes mellitus with diabetic chronic kidney disease 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 6 month follow up MEDICARE WELLNESS Reason for Visit Dietary counseling a nd surveillance HTN (hypertension) Chronic HFrEF (heart failure with reduced ejection fraction) CKD (chronic kidney disease) stage 3, GFR 30-59 ml/min [id number] Secondary hyperparathyroidism Type 2 diabetes mellitus with [...] kidney disease) stage 3, GFR 30-59 ml/min [id number] Secondary hyperparathyroidism Type 2 diabetes mellitus with [...] kidney disease) stage 3, GFR 30-59 ml/min [id number] Secondary hyperparathyroidism Type 2 diabetes mellitus with diabetic chronic kidney disease BMI 27.0-27.9,adult Dietary counseling and surveillance HTN (hypertension) Chief Complaint Admit Date Amb Documentation February 18, 2024 9:11am CC Adult Risk Stratification February 172023 10:26am IP f/u [facility] chest pain-HIGH RISK Nov 2023 9:29am [...] :19am Type 2 diabetes mellitus with hyperglyce [facility] April 16, 2024 8:19am BMI 28.0-28.9,adult April 30, 2024 9 :21am Dietary counseling and [facility] 9:21am HTN (hypertension) April 30, 2024 9 :21am DM2 (diabetes mellitus, type 2) April 30, 2024 9:21am HLD (hyperlipidemia) April 30, 2024 9:21am Chief Complaint Admit Date 4 month f/u-HIGH RISK April 16, 2024 8:19am 3 month April 30, 2024 9 :21am Cataract May 28, 2024 11:06am RENAL 6 MONTH F/U July 14, 2024 9:3 6am Reason for Visit Admit Date Chronic HFrEF (heart failure with reduced ejection fraction) April 16, 2024 8:19am Chronic kidney disease April 16 8:19am HTN (hypertension) April 16, 2024 8 :19am Hypercholesterolemia April 16, 2024 8:19am Ischemic cardiomyopathy April 16 8:19am Pulmonary nodule April 16, 2024 8 :19am Type 2 diabetes mellitus with hyperglyce [facility] April 16, 2024 8:19am BMI 28.0-28.9,adult April 30, 2024 9 :21am Dietary counseling and surveillance Dese[facility] ann 2024 9:21am HTN (hypertension) April 30, 2024 9 :21am DM2 (diabetes mellitus, type 2) April 30, 2024 9:21am HLD (hyperlipidemia) April 30, 2024 9:21am Chronic HFrEF (heart failure with reduced ejection fraction) July 14, 2024 9:36am CKD (chronic kidney disease) stage 3, GF R 30-59 ml/min July 14, 2024 9:36am Gross hematuria July 14, 2024 9:3 6am Hyperkalemia July 14, 2024 9:3 6am Hypertensive chronic kidney disease with stage 1 through stage 4 chronic ki July 14, 2024 9:36am Secondary hyperparathyroidism June 9:36am Type 2 diabetes 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 July 14, 2024 9:36am Chief Complaint Admit Date 3 month April 30, 2024 9 :21am Cataract May 28, 2024 11:06am RENAL 6 MONTH F/U July 14, 2024 9:3 6am Amb Documentation July 16, 2024 9:0 8am [facility] ER; blood in urine-HIGH RISK July 012024 11:19am Reason for Visit Admit Date BMI 28.0-28.9,adult April 30, 2024 9 :21am Dietary counseling and surveillance [facility] 2024 9:21am HTN (hypertension) April 30, 2024 9 :21am DM2 (diabetes mellitus, type 2) April 30, 2024 9:21am HLD (hyperlipidemia) April 30, 2024 9:21am Chronic HFrEF (heart failure with reduced ejection fraction) July 14, 2024 9:36am CKD (chronic kidney disease) stage 3, GF R 30-59 ml/min July 14, 2024 9:36am Gross hematuria July 14, 2024 9:3 6am Hyperkalemia July 14, 2024 9:3 6am Hypertensive chronic kidney disease with stage 1 through stage 4 chronic ki July 14, 2024 9:36am Secondary hyperparathyroidism June 9:36am Type 2 diabetes 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 July 14, 2024 9:36am Chronic HFrEF (heart failure with reduced ejection fraction) July 27, 2024 11:19am Chronic kidney disease July 27, 2024 11:19am Gross hematuria July 27, 2024 11: 19am HTN (hypertension) July 27, 2024 11: 19am Hypercholesterolemia July 27, 2024 11 :19am Hypertensive chronic kidney disease Apri l 2024 11:19am Ischemic cardiomyopathy July 27, 2024 11:19am Pulmonary nodule July 27, 2024 11: 19am Type 2 diabetes 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 July 27, 2024 11:19am Type 2 diabetes mellitus with hyperglyce dimple July 27, 2024 11:19am Chief Complaint Admit Date Cataract May 28, 2024 11:06am RENAL 6 MONTH F/U July 14, 2024 9:3 6am Amb Documentation July 16, 2024 9:0 8am [facility] ER; blood in urine-HIGH RISK July 012024 11:19am 3 month August 03, 2024 9:17am Reason for Visit Admit Date Chronic HFrEF (heart failure with reduce d ejection fraction) July 14, 2024 9:36am CKD (chronic kidney disease) stage 3, GF R 30-59 ml/min July 14, 2024 9:36am Gross hematuria July 14, 2024 9:3 6am Hyperkalemia July 14, 2024 9:3 6am Hypertensive chronic kidney disease with stage 1 through stage 4 chronic ki July 14, 2024 9:36am Secondary hyperparathyroidism June 9:36am Type 2 diabetes 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 July 14, 2024 9:36am Chronic HFrEF (heart failure with reduce d ejection fraction) July 27, 2024 11:19am Chronic kidney disease July 27, 2024 11:19am Gross hematuria July 27, 2024 11: 19am HTN (hypertension) July 27, 2024 11: 19am Hypercholesterolemia July 27, 2024 11 :19am Ischemic cardiomyopathy July 27, 2024 11:19am Pulmonary nodule July 27, 2024 11: 19am Type 2 diabetes 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 July 27, 2024 11:19am BMI 28.0-28.9,adult August 03, 2024 9:17am Dietary counseling and surveillance August 03, 2024 9:17am HTN (hypertension) August 03, 2024 9:17am DM2 (diabetes mellitus, type 2) August 03, 2024 9:17am HLD (hyperlipidemia) August 03, 2024 9:17a m Additional Source Comments (unrecognized sect ion and content) No Status Records FoundNo Status Records FoundNo Status Records FoundNo Status Records FoundNo Status Records FoundNo Status Records FoundNo Status Records FoundNo Status Records Found INFORMATION SOURCE (unrecogn ized section and content) DATE CREATED AUTHOR 11/29/2018 [facility] DATE CREATED AUTHOR AUTHOR'S ORGANIZ ATION 10/25/2021 [facility] DATE CREATED AUTHOR AUTHOR'S ORGANIZ ATION 08/13/2022 [facility] [place] [facility] DATE CREATED AUTHOR AUTHOR'S ORGANIZ ATION 06/20/2024 [facility] EPIC DATE CREATED AUTHOR AUTHOR'S ORGANIZ ATION 07/11/2024 [facility] DATE CREATED AUTHOR AUTHOR'S ORGANIZ ATION 08/09/2024 [facility] DATE CREATED AUTHOR AUTHOR'S ORGANIZ ATION 08/12/2024 [facility] DATE CREATED AUTHOR AUTHOR'S ORGANIZ ATION 08/12/2024 [facility] REASON FOR VISIT (unrecogniz ed section [...] DO Primary Care Provider Active Start: June 10, [address] DO Attending Provider Active Sta rt: June 10, 2024 Team Status: Active Member Role Status Dates Harley Crespo DO Primary Care Provider Active Start: July 07, 2024 Kingsley Good MD Attending Provider Active Start : July 07, 2024 Team Status: Inactive Member Role Status Dates Kingsley Good MD Attending Provider Active Start : July 14, 2024 End: July 14, 2024 Harley Crespo DO Primary Care Provider Active Start: July 14, 2024 End: July 14, 2024 Team Status: Active Member Role Status Dates Harley Crespo DO Primary Care Provider Active Start: July 15, [address] DO Attending Provider Active Sta rt: July 15, 2024 Team Status: Active Member Role Status Dates Harley Crespo DO Primary Care Provider Active Start: July 16, 2024 Codi Easley CMA Attending Provider Active Start: July 16, 2024 Team Status: Inactive Member Role Status Dates Harley Crespo DO Primary Care Provide r, Attending Provider Active Start: July 27, 2024 End: July 27, 2024 Team Status: Inactive Member Role Status Dates Harley Crespo DO Primary Care Provider Active Start: August 03, 2024 End: August 03, 2024 Arlen Kwong APRN Attending Provider Active Start: August 03, 2024 End: August 03, 2024 Team Status: Inactive Member Role Status [...] July 02, 2023 End: July 02, 2023 Supervisor [employer] Relationship Specialty Start Date End Date Harley Crespo DO [address] [place] [address] PCP - General Internal Medicine 07/18/18 Team Status: Inactive Member Role Status Dates Harley Crespo DO Primary Care Provider Active Gagan Shahid DO Admit Provider, Attending Provider Active Team Status: Active Member Role Status Dates Harley Crespo DO Primary Care Provider Active JULY Rosenthal Active Valerei Gallegos PA-C Active Arlen Kwong APRN Attending Provider Active Team Status: Inactive Member Role Status Dates Arlen Kwong APRN Attending Provider Active Start: March 12, 2023 End: March 12, 2023 Team Status: Inactive Member Role Status Dates Harley Crespo DO Primary Care Provider Active Start: March 12, 2023 End: March 12, 2023 Ryan Garrett APRN LENGTH CONTROL TESTER-C Active Sta rt: March 12, 2023 End: [...] January 23, 2024 End: January 23, 2024 Supervisor [employer] Relationship Specialty Start Date End Date Harley Crespo MD [address] [place] [id number] PCP - General Internal Medicine 11/07/23 Supervisor [employer] Relationship Specialty Start Date End Date Harley Crespo MD [address] [place] [id number] PCP - General Internal Medicine 11/07/23 Supervisor [employer] Relationship Specialty Start Date End Date Harley Crespo MD [address] [place] [id number] PCP - General Internal Medicine 11/07/23 Source Comments (unrecognize d section and content) In the event this informatio n is protected by the Federal Confidentiality of Alcohol and Drug Abuse Patient Records regulations: The Federal rules restrict any use of the information to criminally investigate or prosecute any alcohol or drug abuse patient.[facility] Goals (unrecognized section and content) Goals [...] BE BASED ON THE PRIMARY CLINICAL RECORDS. [facility] [employer] [facility]. provides no warranty or guarantee of the accuracy or completeness of information in this document.
[2024-08-13 00:23] LABS: Glucometer 278 mg/dL (74-106)
--- NOTE | 2024-08-13 00:23 | ED.CHESTPAI1 ---
HPI - Chest Pain General Chief Complaint: Chest Pain Stated Complaint: CHEST PAIN Time Seen by Provider: 08/13/24 00:23 Source: patient Mode of arrival: ambulance Limitations: no limitations History of Present Illness HPI narrative: diabetic past history of CAD/CABG and FL. chest pain at home 09/08. Improved en route after nitro SL still has come pain in his mid back. No dyspnea or vomiting or abdominal pain. Given additional nitro SL after arrival to the department. This resolved his pain. He was recently diagnosed with bladder CA and has gross hematuria. Has upcoming appointment with Urology Related Data Home Medications ?Medication ?Instructions ?Recorded ?Confirmed alprazolam 0.5 mg tablet (Xanax) 0.5 mg PO BID 01/24/23 08/13/24 aspirin 81 mg tablet,delayed 81 mg PO DAILY 01/24/23 08/13/24 release (Adult Aspirin Regimen) cholecalciferol (vitamin D3) 25 25 mcg PO DAILY 01/24/23 08/13/24 mcg (1,000 unit) tablet (Vitamin D3) clopidogrel 75 mg tablet 75 mg PO .HS 01/24/23 08/13/24 empagliflozin 10 mg tablet 10 mg PO QAM 01/24/23 08/13/24 (Jardiance) insulin aspart U-100 100 unit/mL 1 sliding scale dose subcut 01/24/23 08/13/24 (3 mL) subcutaneous pen (Novolog USEASDIRECTD FlexPen U-100 Insulin aspart) isosorbide mononitrate 60 mg 60 mg PO BID 01/24/23 08/13/24 tablet,extended release 24 hr lisinopril 2.5 mg tablet 2.5 mg PO BID 01/24/23 08/13/24 lovastatin 40 mg tablet 40 mg PO .PM 01/24/23 09/26/23 multivitamin with iron-mineral 1 tab PO DAILY 01/24/23 08/13/24 nitroglycerin 0.4 mg sublingual 0.4 mg sublingual Q5M PRN chest 01/24/23 08/13/24 tablet pain pantoprazole 40 mg tablet,delayed 40 mg PO DAILY 01/24/23 08/13/24 release insulin degludec 100 unit/mL (3 14 unit subcut DAILY 08/13/24 08/13/24 mL) subcutaneous pen (Tresiba FlexTouch U-100 insulin) metoprolol succinate 100 mg 150 mg PO DAILY 08/13/24 08/13/24 tablet,extended release 24 hr ranolazine 500 mg tablet,extended 500 mg PO Q12H 08/13/24 08/13/24 release,12 hr rosuvastatin 40 mg tablet 40 mg PO DAILY 08/13/24 08/13/24 spironolactone 25 mg tablet 25 mg PO DAILY 08/13/24 08/13/24 Allergies Allergy/AdvReac Type Severity Reaction Status Date / Time No Known Drug Allergies Allergy Verified 02/12/24 20:36 Review of Systems ROS Status of ROS 10 or more systems reviewed and unremarkable except as noted in history and below [facility] Medical History (Updated 08/13/24 @ 05:14 by Franco Youngblood MD) AMI (acute myocardial infarction) ?I21.9 - Acute myocardial infarction, unspecified (ICD-10) Pacemaker ?Z95.0 - Presence of cardiac pacemaker (ICD-10) Anxiety ?F41.9 - Anxiety disorder, unspecified (ICD-10) GERD (gastroesophageal reflux disease) ?K21.9 - Gastro-esophageal reflux disease without esophagitis (ICD-10) Hypertension ?I10 - Essential (primary) hypertension (ICD-10) Diabetes ?E11.9 - Type 2 diabetes mellitus without complications (ICD-10) Surgical History (Updated 01/24/23 @ 19:49 by Cammy Adler) History of heart artery stent ?Z95.5 - Presence of coronary angioplasty implant and graft (ICD-10) Social History (Updated 01/24/23 @ 20:00 by Cammy Adler) Within the past year, how often did you have a drink containing alcohol: never Within the past year, how often did you have six or more drinks on one occasion: never Score interpretation: A score less than 4 is consistent with normal alcohol consumption. Smoking status: Former smoker Non-prescribed substance use: denies use Previous occupational history: works 1 day a week Highest level of school completed/degree received: high school graduate Are you now , , , , never or living with a partner: In a typical week, how many times do you talk on the telephone with family, friends, or neighbors: 3 or more times per week How often do you get together with friends or relatives: once per week How often do you attend scientology or rastafari services: 1-3 times per year Little interest or pleasure in doing things: not at all Feeling down, depressed, or hopeless: not at all Feel stressed/tense/nervous/anxious/difficulty sleeping: to some extent Life stressors: other Life stressor details: getting older Exam Constitutional Vital Signs, click to edit/add: Last Vital Signs Temp 98 F 08/13/24 00:18 Pulse 75 08/13/24 04:00 Resp 17 08/13/24 04:00 BP 126/67 08/13/24 04:00 Pulse Ox 95 08/13/24 03:20 O2 Del Method Room Air 08/13/24 00:18 Common normals: no apparent distress, average body habitus, oriented x3, no limitations, healthy appearing, alert and well nourished HENWI Common normals: normocephalic and head/scalp atraumatic Respiratory Common normals: normal respiratory effort, no retractions, no use of accessory muscles and clear to auscultation bilaterally Cardio Common normals: regular rate, regular rhythm, S1 normal heart sound and S2 normal heart sound GI Common normals: Normal to inspection, nondistended, normoactive bowel sounds present, soft to palpation and non-tender Extremity Common normals: normal to inspection and full ROM Neuro Common normals: oriented x3, CN's II-XII intact bilaterally, moves all extremities and no focal motor deficits Psych Appearance: grossly normal Course Vital Signs Vital signs: Vital Signs Blood Pressure 171/91 H 08/13/24 00:15 Temperature 98 F 08/13/24 00:18 Pulse Rate 75 08/13/24 04:00 Respiratory Rate 17 08/13/24 04:00 Blood Pressure 126/67 08/13/24 04:00 Pulse Oximetry 95 08/13/24 03:20 Oxygen Delivery Method Room Air 08/13/24 00:18 MDM - Chest Pain MDM Narrative Medical decision making narrative: patient with past history of IDDM and CAD presents with chest pain radiating to his back. Pain relieved after nitro SL X2. Cxray with interstitial prominence. Patient not short of breath. serial troponin with increase from 17 to 228. He also has a positive d-dimer but is not candidate for CTA chest with GFR 33. Patient remains asymptomatic. Discussed with environmental emergencies planner gate keeper Dr Galindo who has accepted the patient in transfer. Because of his history of bladder CA and gross hematuria he was not given heparin. EKG with paced rhythm. Hospitalist paged to complete transfer acceptance Lab Data Labs: Lab Results 08/13/24 08/13/24 08/13/24 Range/Units 00:18 00:20 03:31 WBC 8.6 (4.0-11.0) 10^3/uL RBC 4.30 L (4.70-6.10) 10^6/uL Hgb 13.2 L (14.0-18.0) g/dL Hct 38.9 L (42.0-54.0) % MCV 90.5 (80.0-94.0) fL MCH 30.7 (25.9-34.0) pg MCHC 33.9 (29.9-35.2) g/dL RDW 14.7 (11.0-15.0) % Plt Count 217 (150-450) 10^3/uL MPV 9.8 (9.5-13.5) fL Neut % (Auto) 62.4 (43.0-75.0) % Lymph % (Auto) 22.6 (20.5-60.0) % Tompkins % (Auto) 11.0 (1.7-12.0) % Eos % (Auto) 2.7 (0.9-7.0) % Baso % (Auto) 0.8 (0.2-2.0) % Neut # (Auto) 5.4 (1.4-6.5) 10^3/uL Lymph # (Auto) 2.0 (1.2-3.8) 10^3/uL Tompkins # (Auto) 1.0 H (0.3-0.8) 10^3/uL Eos # (Auto) 0.2 (0.0-0.7) 10^3/uL Baso # (Auto) 0.1 (0.0-0.1) 10^3/uL Abs Immat Gran (auto) 0.04 H (0.00-0.03) 10^3/uL Imm/Tot Granulo (auto) 0.5 (0.0-0.5) % D-Dimer 0.75 H* (<=0.59) mg/L FEU Sodium 137 (136-145) mmol/L Potassium 3.9 (3.5-5.1) mmol/L Chloride 103 (98-107) mmol/L Carbon Dioxide 24.4 (21.0-32.0) mmol/L Anion Gap 13.5 BUN 29.0 H (7.0-18.0) mg/dL Creatinine 2.02 H (0.70-1.30) mg/dL Est GFR ( Amer) 40 L (>=60 mL/min/1.73m^2) Est GFR (Non-Af Amer) 33 L (>=60 mL/min/1.73m^2) BUN/Creatinine Ratio 14.4 Glucose 310 H (74-106) mg/dL Calcium 9.3 (8.5-10.1) mg/dL Troponin I High Sens 17.1 228.4 H* (4.0-76.1) pg/mL POC Glucose 278 H (74-106) mg/dL Discharge Plan Discharge Chief Complaint: Chest Pain Clinical Impression: Non-ST elevation FL (NSTEMI), Hematuria, Bladder cancer, Elevated d-dimer Prescriptions / Home Meds: No Action metoprolol succinate 100 mg tablet extended release 24 hr 150 mg PO DAILY ranolazine 500 mg tablet extended release 12 hr 500 mg PO Q12H rosuvastatin 40 mg tablet 40 mg PO DAILY spironolactone 25 mg tablet 25 mg PO DAILY insulin degludec [Tresiba FlexTouch U-100] 100 unit/mL (3 mL) insulin pen 14 unit subcut DAILY pantoprazole 40 mg tablet,delayed release (DR/EC) 40 mg PO DAILY isosorbide mononitrate 60 mg tablet extended release 24 hr 60 mg PO BID Jardiance 10 mg tablet 10 mg PO QAM alprazolam [Xanax] 0.5 mg tablet 0.5 mg PO BID clopidogrel 75 mg tablet 75 mg PO .HS lisinopril 2.5 mg tablet 2.5 mg PO BID lovastatin 40 mg tablet 40 mg PO .PM aspirin [Adult Aspirin Regimen] 81 mg tablet,delayed release (DR/EC) 81 mg PO DAILY multivitamin with iron-mineral Tablet 1 tab PO DAILY cholecalciferol (vitamin D3) [Vitamin D3] 25 mcg (1,000 unit) tablet 25 mcg PO DAILY insulin aspart U-100 [Novolog FlexPen U-100 Insulin] 100 unit/mL (3 mL) insulin pen 1 sliding scale dose subcut USEASDIRECTD nitroglycerin 0.4 mg tablet, sublingual 0.4 mg sublingual Q5M PRN (Reason: chest pain) Print Language: Tamazight Referrals: Harley Goodman DO [Primary Care Provider, Internal Medicine] - 1 week
[2024-08-13 00:30] LABS: Basophils Absolute Auto 0.1 10^3/uL (0.0-0.1); Basophils Percent Auto 0.8 % (0.2-2.0); Eosinophils Absolute Auto 0.2 10^3/uL (0.0-0.7); Eosinophils Percent Auto 2.7 % (0.9-7.0); Hematocrit 38.9 % (42.0-54.0); Hemoglobin 13.2 g/dL (14.0-18.0); Immature Granulocytes Abs Auto 0.04 10^3/uL (0.00-0.03); Immature Granulocytes Pct Auto 0.5 % (0.0-0.5); Lymphocytes Percent Auto 22.6 % (20.5-60.0); Mean Corpuscular HGB Conc 33.9 g/dL (29.9-35.2); Mean Corpuscular Hemoglobin 30.7 pg (25.9-34.0); Mean Corpuscular Volume 90.5 fL (80.0-94.0); Mean Platelet Volume 9.8 fL (9.5-13.5); Neutrophils Absolute Auto 5.4 10^3/uL (1.4-6.5); Neutrophils Percent Auto 62.4 % (43.0-75.0); Platelet Count 217 10^3/uL (150-450); Red Cell Distribution Width 14.7 % (11.0-15.0); White Blood Count 8.6 10^3/uL (4.0-11.0)
[2024-08-13] MEDS: NITROGLYCERIN 0.4 MG BOTTLE PO (00:35)
[2024-08-13 00:47] LABS: Anion Gap 13.5; BUN Creatinine Ratio 14.4; Calcium 9.3 mg/dL (8.5-10.1); Carbon Dioxide 24.4 mmol/L (21.0-32.0); Chloride 103 mmol/L (98-107); Estimated GFR (African America 40 (>=60 mL/min/1.73m^2); Estimated GFR (Non-African Ame 33 (>=60 mL/min/1.73m^2); Glucose 310 mg/dL (74-106); Potassium 3.9 mmol/L (3.5-5.1); Sodium 137 mmol/L (136-145); Troponin I High Sensitivity 17.1 pg/mL (4.0-76.1)
[2024-08-13 00:52] LABS: D Dimer 0.75 mg/L FEU (<=0.59)
[2024-08-13 04:00] LABS: Troponin I High Sensitivity 228.4 pg/mL (4.0-76.1)
--- NOTE | 2024-08-13 09:53 | PC.NURSE ---
[facility] here for transport of pt
--- NOTE | 2024-08-13 09:57 | PC.NURSE ---
Report called to Edilma POSADA at [facility]
== END 2024-08-13 10:04 | disposition short-term general hospital (02) ==
PROVIDERS: Emergency Provider Internal Medicine; PCP Internal Medicine
DX: I21.4 Non-ST elevation (NSTEMI) myocardial infarction (principal); I25.10 Atherosclerotic heart disease of native coronary artery without angina pectoris; Z95.1 Presence of aortocoronary bypass graft; Z95.0 Presence of cardiac pacemaker; I25.2 Old myocardial infarction; R31.0 Gross hematuria; C67.9 Malignant neoplasm of bladder, unspecified; Z79.4 Long term (current) use of insulin; Z79.84 Long term (current) use of oral hypoglycemic drugs; Z95.5 Presence of coronary angioplasty implant and graft; Z87.891 Personal history of nicotine dependence; R79.89 Other specified abnormal findings of blood chemistry
CPT/HCPCS: 36415; 71045; 80048; 84484; 85025; 85378; 93005; 99285

== ENCOUNTER 2024-08-27 07:16 | Outpatient (OUT) | payer MEDICARE, OTHER, SELFPAY ==
--- OUTSIDE RECORDS SUMMARY | 2024-08-13 11:14 | XMS_ITS | Encounter Summary ---
Author Organization [facility] Address [address] [place] [address] Care Team Providers Care Element Burner Name Role Phone Harley Goodman DO Primary Care Provider [phone] Reason for Referral * (Routine) - Pending Review Specialty Diagnoses / Procedures Referred By Contac t Referred To Contact Procedures ECG 12 lead Tatianna Hayward MD [address] [place] [address] Referral ID Status Reason Start Date Expiration Date V isits Requested Visits Authorized [id number] Pending Review 08/13/2024 08/13/2025 1 1 Reason for Visit * Auth/Cert (Routine) Specialty Diagnoses / Procedures Referred By Contac t Referred To Contact Diagnoses Chest pain NSTEMI Procedures NO CODED SERVICE Tomas Pope MD [address] [place] [address] [facility] [address] [place] [address] Referral ID Status Reason Start Date Expiration Date Visits Re quested Visits Authorized [id number] 1 1 Encounter Details Date Type Department Care Team (Late st Contact Info) Description 08/13/2024 11:14 AM EDT - 08/14/2024 6:44 PM EDT Hospital [facility] [address] [place] [address] Tomas Pope MD [address] [place] [address] Devante Leon MD [address] [place] [address] Chest pain (Primary Dx); Hypertension, unspecified type Discharge Disposition: Home or Self Care () Social History Tobacco Use Types Packs/Day Years Used Date Smoking Tobacco: Former Cigarettes Smokeless Tobacco: Never Alcohol Use Standard Drinks/Week Comments Never 0 (1 standard drink = 0.6 oz pur e alcohol) [facility] Utilities Answer Date Recorded In the past 12 months has th e [employer], gas, oil, or water [employer] threatened to shut off services in your home? No 08/13/2024 Humiliation, Afraid, Rape, and Kick questionnair e Answer Date Recorded Within the last year, have y ou been afraid of your partner or ex-partner? No 08/13/2024 Emotionally Abused Not on file 08/13/2024 Physically Abused Not on file 08/13/2024 Sexually Abused Not on file 08/13/2024 Overall Financial Resource Strain (CARDIA) Answe r Date Recorded How hard is it for you to pa y for the very basics like food, housing, medical care, and heating? Not hard at all 08/13/2024 Transportation Answer Date Recorded In the past 12 months, has l ack of transportation kept you from medical appointments or from getting medications? No 08/13/2024 Lack of Transportation (Non-Medical) Not on file 08/13/2024 Housing Stability Vital Sign Answer Phani e Recorded In the last 12 months, was t here a time when you were not able to pay the mortgage or rent on time? No 08/13/2024 Number of Times Moved in the Last Year Not on fi le 08/13/2024 At any time in the past 12 m [facility], were you homeless or living in a fpc (including now)? No 08/13/2024 Hunger Vital Sign Answer Date Recorded Within the past 12 months, y ou worried that your food would run out before you got the money to buy more. Never true 08/14/19 25 Ran Out of Food in the Last Year Not on file 08/13/2024 Sex and Gender Information Value Date Recorded Sex Assigned at Male 02/12/2023 9:24 AM EST Gender Identity Male 02/12/2023 9:24 AM EST Sexual Orientation Heterosexual or Straight 01/30 9:24 AM EST documented as of this encounter Last Filed Vital Signs Vital Sign Reading Time Taken Comments Blood Pressure 119/74 08/14/2024 6:20 PM EDT Pulse 80 08/14/2024 6:20 PM EDT Temperature 36.2 C (97.2 F) 08/14/2024 4:30 PM EDT Respiratory Rate 16 08/14/2024 6:20 PM EDT Oxygen Saturation 100% 08/14/2024 6:20 PM EDT Inhaled Oxygen Concentration - - Weight 82.4 kg (181 lb 9.6 oz) 08/14/2024 6:00 A M EDT Height 170.2 cm (5' 7 ) 08/13/2024 11:26 AM EDT Body Mass Index 28.44 08/13/2024 11:26 AM EDT documented in this encounter Discharge Summaries * Devante Leon MD - 08/14/2024 6:44 PM EDT Images from the original note were not included. Hospital Medicine Discharge Summary Final Discharge Diagnosis: Chest pain likely NSTEMI type I HFrEF-stage C, NYHA II , status post BiV ICD, EF 15 to 20% CAD status post CABG x 5, status post PCI with GAGAN to SVG-PDA Third-degree AV block status post PPM Peripheral vascular disease/ Carotid artery stenosis Diabetes mellitus type II CKD 3 Bladder cancer Admission Diagnosis: Chest pain [R07.9] Hospital course: Mr. Lani Lizama is a 73-year-old male patient with a past medical history of CAD status post CABG x5, PCI to SVG-PDA on 08/2023, HFrEF EF 15 to 20% status post BiV ICD, peripheral vascular disease/carotid artery stenosis, third-degree AV block status post PPM, CKD 3 and recent diagnosis of bladder cancer presents with painless hematuria and chest pain. He mentions that he went to bed and was about to go to sleep when he started having chest. He sat up and took nitroglycerin that improved the pain. He attempted to sleep again but once he laid down the pain came back. This time, it was radiating to both arms. He had to sit up and take nitro again. Chest pain resolved mildly and then returned. He had to sit in the chair take nitro again before deciding to go to the ER. In the ER, outpatient workup revealed mildly elevated troponin. Patient was transferred to [facility] for further evaluation and treatment. Of note, patient mentioned that ever since he had his coronary angiography by Dr. Bishop last December/2023, he has been having more frequent episodes of chest pain requiring as needed nitro. High-sensitivity troponins up to 294. EKG was V-paced. Echo showed EF 25%. Stress test was done reported positive for reversible ischemia anterior wall. TID ratio of 0.95 and reported the calculated LV ejection fraction 62%. Patient evaluated by cardiology team and patient ideally would need coronary angiogram patient referred to be discharged. Medications were adjusted particular Norvasc added to his regimen patient to follow-up with Dr. Bishop in 1 week Surgical, Invasive or Diagnostic Procedures Done During Admission: Lexiscan stress test Consultations During Admission: Cardiology Dear DO Goodman Thomas is advised to follow up with you within 1-2 weeks. Items to follow up in ambulatory setting: Patient will need to follow-up with cardiology in 1 week for consideration for cardiac cath Follow-up with: Cardiology Scheduled appointments: Future Appointments Date Time Provider Department Center 08/20/2024 9:45 AM Pinky Bishop MD [facility] 08/28/2024 8:30 AM Last Mcmanus MD [facility] [place] Your medication list START taking these medications Instructions Last Dose Given Next Dose Due amLODIPine 5 mg tablet Commonly known as: Norvasc Take 1 tablet (5 mg) by mouth in the morning for 30 doses. CONTINUE taking these medications Instructions Last Dose [...] (60 mg) by mouth 2 times daily. metoprolol succinate XL 50 mg 24 hr tablet Commonly known as: Toprol-XL Take 3 tablets (150 mg) by mouth in the morning for 97 doses. Do not crush or chew. nitroglycerin 0.4 mg SL tablet Commonly known as: Nitrostat PLACE 1 TABLET UNDER TONGUE EVERY 5 MINS, UP TO 3 DOSES NEEDED FOR CHEST PAIN pantoprazole 40 mg EC tablet Commonly known as: ProtoNix ranolazine 500 mg 12 hr tablet Commonly known as: Ranexa Take 1 tablet (500 mg) by mouth two times daily. Do not crush, chew, or split. rosuvastatin 40 mg tablet Commonly known as: Crestor TAKE 1 TABLET BY MOUTH AT BEDTIME spironolactone 25 mg tablet Commonly known as: Aldactone Take 1 tablet (25 mg) by mouth in the morning. thiamine 100 mg tablet Commonly known as: Vitamin B-1 thiamine 250 mg tablet Commonly known as: Vitamin B-1 Vitamin D3 25 MCG (1000 units) tablet Generic drug: cholecalciferol Where to Get Your Medications These medications were sent to [facility] - [address] [place] [address] [address] [facility] [address], [facility] [address] amLODIPine 5 mg tablet Lani has No Known Allergies. Disposition: Home or Self Care () Discharge Condition: Stable Code Status: Prior Diagnostic Results Hematology: Results from last 7 days Lab Units 08/13/24 1421 WBC AUTO 10*3/uL 7.62 HEMOGLOBIN g/dL 13.1 HEMATOCRIT % 39.8 MCV fL 89.0 PLATELETS AUTO 10*3/uL 201 Chemistry: Results from last 7 days Lab Units 08/13/24 1421 SODIUM mmol/L 137 POTASSIUM mmol/L 4.7 CHLORIDE mmol/L 108* CO2 mmol/L 21 BUN mg/dL 26* CREATININE mg/dL 1.63* GLUCOSE mg/dL 165* MAGNESIUM mg/dL 1.9 CALCIUM mg/dL 9.1 PHOSPHORUS mg/dL 3.6 Results from last 7 days Lab Units 08/13/24 1421 AST U/L 27 ALT U/L 15 ALK PHOS U/L 90 BILIRUBIN TOTAL mg/dL 0.7 Diet at the time of discharge: regular diet and diabetic diet Activity: Normal activity as tolerated Objective Blood pressure 119/74, pulse 80, temperature 36.2 ??C (97.2 ??F), temperature source Temporal, resp. rate 16, height 1.702 m (5' 7 ), weight 82.4 kg (181 lb 9.6 oz), SpO2 100%. General: Alert and oriented x3. Cardiology: Normal rate, regular rhythm. Lungs: Clear to auscultation, no wheezes, rales or rhonchi, symmetric air entry. Abdomen: Soft, non tender, non distended. Extremities: No pitting edema. Neurology: No focal neuro deficit noted. Total time for discharge - review of data, exam, discussion with providers and care-team, med-rec and orders, arranging follow up, counseling of patient and/or family and documentation was 60 minutes. Signed Devante Leon MD [facility] 08/15/2024 3:29 PM CC: DO Rex documented in this encounter Discharge Instructions * Discharge Instr - Activity* Briseida Dang RN - 08/14/2024 12:14 PM EDT Activity as tolerated documented in this encounter Medications at Time of Discharge Medication Sig Dispensed Refills Start Date End Date ALPRAZolam (Xanax) 0.5 mg tablet Take 1 tablet by mouth in the morning, afternoon, and at bedtime. amLODIPine (Norvasc) 5 mg tabletIndications:Hype rtension, unspecified type Take 1 tablet (5 mg) by mouth in the morning for 30 doses. 30 tablet 08/14/2024 09/13/2024 aspirin 81 mg chewable tablet Chew 1 tablet every day by oral route. cholecalciferol (Vitamin D3) 25 MCG (1000 units) tablet Take 1,000 Units by mouth in the morning. clopidogrel (Plavix) 75 mg tablet Take 1 tablet by mouth in the morning. 01/01/2018 docusate sodium (Colace) 100 mg capsule Take 100 mg by mouth in the morning. empagliflozin (Jardiance) 10 mg Take 1 tablet every day by oral route. 09/07/2021 insulin aspart (NovoLOG) 100 unit/mL injection vial Inject 10 Units under the skin with breakfast, with lunch, and with evening meal. Sliding scale insulin detemir (Levemir) 100 unit/mL injection Inject 5 Units under the skin two times daily. isosorbide mononitrate ER (Imdur) 60 mg 24 hr tabletIndications:Acut e on chronic systolic heart failure (CMS/HCC),NSTEMI (non-ST elevated myocardial infarction) (CMS/HCC) Take 1 tablet (60 mg) by mouth 2 times daily. 180 tablet 3 04/22/2023 metoprolol succinate XL (Toprol-XL) 50 mg 24 hr tabletIndications:NSTE TX (non-ST elevated myocardial infarction) (CMS/HCC) Take 3 tablets (150 mg) by mouth in the morning for 97 doses. Do not crush or chew. 291 tablet 02/15/2024 nitroglycerin (Nitrostat) 0.4 mg SL tabletIndications:Ches t pain, unspecified type PLACE 1 TABLET UNDER TONGUE EVERY 5 MINS, UP TO 3 DOSES NEEDED FOR CHEST PAIN 90 tablet 2 01/31/2024 pantoprazole (ProtoNix) 40 mg EC tablet TAKE 1 TABLET BY MOUTH DAILY ON AN EMPTY STOMACH FOLLOWED BY BREAKFAST 30 MINUTES AFTER 07/17/2022 ranolazine (Ranexa) 500 mg 12 hr tabletIndications:NSTE TX (non-ST elevated myocardial infarction) (CMS/HCC) Take 1 tablet (500 mg) by mouth two times daily. Do not crush, chew, or split. 180 tablet 3 03/19/2024 03/14/2025 rosuvastatin (Crestor) 40 mg tabletIndications:NSTE TX (non-ST elevated myocardial infarction) (CMS/HCC) TAKE 1 TABLET BY MOUTH AT BEDTIME 90 tablet 3 01/12/2024 spironolactone (Aldactone) 25 mg tabletIndications:NSTE TX (non-ST elevated myocardial infarction) (CMS/HCC) Take 1 tablet (25 mg) by mouth in the morning. 90 tablet 3 01/16/2024 01/15/2025 thiamine (Vitamin B-1) 100 mg tablet Take 100 mg by mouth every other day. thiamine (Vitamin B-1) 250 mg tablet Take 250 mg by mouth every other day. documented as of this encounter Progress Notes * Niharika Thomas, RD - 08/14/2024 3:52 PM EDT Adult Nutrition Assessment: Name: Lani Lizama Date: 1950 Date of Visit: 08/14/24 Admission Dx: Chest pain [R07.9] Reason for assessment: high risk Information obtained from: patient and medical record Past Medical History: Diagnosis Date Carotid artery stenosis Coronary artery disease Diabetes mellitus (CMS/HCC) Hyperlipidemia Hypertension PVD (peripheral vascular disease) Third degree heart block (CMS/HCC) Current Medications: ALPRAZolam, 0.5 mg, oral, TID aspirin, 81 mg, oral, Daily with breakfast cholecalciferol, 1,000 Units, oral, Daily clopidogrel, 75 mg, oral, Daily dapagliflozin propanediol, 10 mg, oral, Daily docusate sodium, 100 mg, oral, Daily heparin (porcine), 5,000 Units, subcutaneous, q12h RICARDA insulin glargine, 5 Units, subcutaneous, BID insulin lispro, 0-5 Units, subcutaneous, TID with meals And insulin lispro, 0-4 Units, subcutaneous, Nightly isosorbide mononitrate ER, 60 mg, oral, 2 times daily kit prep Tc 99m-sestamibi no.1, 10 millicurie, intravenous, Once in imaging kit prep Tc 99m-sestamibi no.1, 30 millicurie, intravenous, Once in imaging metoprolol succinate XL, 150 mg, oral, Daily pantoprazole, 40 mg, oral, Daily ranolazine, 500 mg, oral, BID rosuvastatin, 40 mg, oral, Nightly spironolactone, 25 mg, oral, Daily thiamine, 100 mg, oral, Every other day [START ON 08/15/2024] thiamine, 250 mg, oral, Every other day Labs: 0 Lab Value Date/Time POCGLU 155 (H) 08/14/2024 1534 BUN 26 (H) 08/13/2024 1421 CREATININE 1.63 (H) 08/13/2024 1421 NA 137 08/13/2024 1421 K 4.7 08/13/2024 1421 PHOS 3.6 08/13/2024 1421 MG 1.9 08/13/2024 1421 HGB 13.1 08/13/2024 1421 WBC 7.62 08/13/2024 1421 CHOL 108 (L) 09/27/2023 0359 HDL 31 09/27/2023 0359 Allergies: No Known Allergies Nutrition Problems: Swallowing Assessment: Pt denied problems swallowing Mouth: Pt denied problems chewing; missing teeth, dentures upper Abdominal Assessment: Pt denied any NVCD Appetite: good Cognition: A&O x 4 Feeding Skills: Pt reported that he will cook for himself and he has good access to food Skin Integrity: documented to be intact Other Factors: EF 15-20% Nutrition Data/Clinical Indicators of Nutrition Status: Height: 170.2 cm (5' 7 ) Weight: 82.4 kg (181 lb 9.6 oz) BMI (Calculated): 28.44 Wt Readings from Last 10 Encounters: 08/14/24 82.4 kg (181 lb 9.6 oz) 03/10/24 79.4 kg (175 lb) cardiology 02/14/24 77.9 kg (171 lb 12.8 oz) 01/23/24 77.6 kg podiatry 10/07/23 80.7 kg (178 lb) 09/28/23 78.9 kg (174 lb) 09/09/23 80.3 kg (177 lb) 05/07/23 77.1 kg (170 lb) cardiology 04/30/23 77.1 kg (170 lb) 03/18/23 76.7 kg (169 lb) 03/07/23 78.5 kg (173 lb) IBW: 67.3 kg Weight change: Documented weight history shows that weight has been pretty stable. Pt reported thathe was on Ozempic and he lost weight while on it, but he has gained the weight back. Nutrition Assessment: Pt reported no recent changes in his appetite or intake. Pt reported that he will eat 2 meals a dayand snacks. Pt reported that he does not eat breakfast, but he will have coffee in the morning. Pt reported that at lunch he will have a sandwich. Dinner will be something like a meat, potato or starch, and vegetable. Pt reported that he will have things like cheese and crackers for snacks. Pt reported that he eats a lot of chicken. Pt reported that he does not add a lot of salt to his foods. Pt does not go out to eat often other than when his son takes him out. Pt reported that he will try to limit his carbs and does not eat a lot of sugar. Pt reported that he will check his blood sugar 5-6 times a day. Dietary Orders (From admission, onward) Start Ordered 08/14/24 1409 Regular Diet Diabetic Male (carb 60g/meal) Diet effective now Question Answer Comment Room Service? Yes Carbohydrate restriction: Diabetic Male (carb 60g/meal) 08/14/24 1408 Meal Intakes: 50-75% Nutrition Risk: Low Nutrition Diagnosis: No nutrition diagnosis at this time Malnutrition Assessment: Per Registered Dietitian assessment and evaluation, patient does not currently meet criteria OR there is not enough information to support the diagnosis of malnutrition per the clinical criteria set by the Academy of Nutrition and Dietetics (AND) and the [place] Society of Enteral and Parenteral Nutrition (ASPEN). Nutrition Education: Diet literature: Heart Failure Nutrition Therapy (reviewed and encouraged flavoring alternatives tosalt, recommended adequate intake of fruits/vegetables at each meal and for snacks, encouraged choosing lean proteins, encouraged preparing more meals at home, recommended decreasing frequency of eating out/take-out foods, and encouraged avoiding or limiting salty snacks/processed foods/frozen foods ) Diabetes Nutrition Therapy (discussed the importance of regular scheduled meals and snacks, explained the difference between simple CHO vs complex CHO + sources of each, discussed the importance of fiber and incorporating into meals and snacks, discussed the importance of protein and incorporating into meals and snacks, and encouraged more meals prepared at home) Expected compliance/patient understanding: good, pt was familiar with and follows diet Teach back method: yes Time spent: 15 minutes Treatment Plan: Continue current diet Monitor intakes Continue to review diet education Medically manage blood glucose as needed Daily weights- standing scale as able Monitor for unintentional weight loss Goals: Adequate po intakes (kcals and protein); >75% meals Understanding of nutrition education/adherence to diet recommendations No significant unintentional wt loss BG control To reach the Clinical Dietitian, please utilize [employer] chat Saturday-Saturday from 8AM-4PM or call extension [phone]. For weekends (Saturday-Saturday) and holidays, the Clinical Dietitian can be reached via pager [phone]) from 9AM-3PM. The Clinical Nutrition Department is unable to respond to [employer] chat messages on Sundays and . * Minor Pagan MD - 08/14/2024 11:12 AM EDT Images from the original note were not included. Cardiology Progress Note Subjective Subjective: Patient seen examined this morning; he denies any chest pain overnight. No acute events. Plan as detailed below. Objective Current Facility-Administered Medications: acetaminophen (Tylenol) tablet 650 mg, 650 mg, oral, q6h PRN, Graeme Sorensen MD ALPRAZolam (Xanax) tablet 0.5 mg, 0.5 mg, oral, TID, Graeme Sorensen MD, 0.5 mg at 08/14/24 0750 aspirin chewable tablet 81 mg, 81 mg, oral, Daily with breakfast, Graeme Sorensen MD, 81 mg at 08/14/24 0750 cholecalciferol (Vitamin D-3) tablet 1,000 Units, 1,000 Units, oral, Daily, Graeme Sorensen MD, 1,000 Units at 08/13/24 1553 clopidogrel (Plavix) tablet 75 mg, 75 mg, oral, Daily, Graeme Sorensen MD, 75 mg at 08/13/24 1553 dapagliflozin propanediol (Farxiga) tablet 10 mg, 10 mg, oral, Daily, Graeme Sorensen MD, 10 mg at08/13/24 1554 glucose chewable tablet 24 g, 24 g, oral, q15 min PRN OR dextrose 50 % in water (D50W) syringe 25 g, 25 g, intravenous, q15 min PRN, Graeme Sorensen MD docusate sodium (Colace) capsule 100 mg, 100 mg, oral, Daily, Graeme Sorensen MD, 100 mg at 08/13/24 1554 heparin (porcine) injection 5,000 Units, 5,000 Units, subcutaneous, q12h RICARDA, Graeme Sorensen MD, 5,000 Units at 08/13/24 2206 insulin glargine (Lantus) injection vial 5 Units, 5 Units, subcutaneous, BID, Graeme Sorensen MD, 5 Units at 08/13/242205 insulin lispro (HumaLOG) injection 0-5 Units, 0-5 Units, subcutaneous, TID with meals, 1 Units at 08/14/24 0749 AND insulin lispro (HumaLOG) injection 0-4 Units, 0-4 Units, subcutaneous, Nightly,Graeme Sorensen MD insulin lispro (HumaLOG) injection 10 Units, 10 Units, subcutaneous, TID with meals, Graeme Sorensen MD, 10 Units at 08/13/24 1805 isosorbide mononitrate ER (Imdur) 24 hr tablet 60 mg, 60 mg, oral, 2 times daily, Graeme Sorensen MD, 60 mg at 08/14/24 0605 kit prep Tc 99m-sestamibi no.1 (Cardiolite) radio-isotope injection 10 millicurie, 10 millicurie, intravenous, Once in imaging, Devante Leno MD, 10 millicurie at 08/14/24 0828 kit prep Tc 99m-sestamibi no.1 (Cardiolite) radio-isotope injection 30 millicurie, 30 millicurie, intravenous, Once in imaging, Devante Leon MD, 30 millicurie at 08/14/24 1057 metoprolol succinate XL (Toprol-XL) 24 hr tablet 150 mg, 150 mg, oral, Daily, Graeme Sorensen MD, 150 mg at 08/13/24 155 nitroglycerin (Nitrostat) SL tablet 0.4 mg, 0.4 mg, sublingual, q5 min PRN, Graeme Sorensen MD pantoprazole (ProtoNix) EC tablet 40 mg, 40 mg, oral, Daily, Graeme Sorensen MD, 40 mg at 605 ranolazine (Ranexa) 12 hr tablet 500 mg, 500 mg, oral, BID, Graeme Sorensen MD, 500 mg at rosuvastatin (Crestor) tablet 40 mg, 40 mg, oral, Nightly, Graeme Sorensen MD, 40 mg at 08/13/242205 spironolactone (Aldactone) tablet 25 mg, 25 mg, oral, Daily, Graeme Sorensen MD, 25 mg at 553 thiamine (Vitamin B-1) tablet 100 mg, 100 mg, oral, Every other day, Graeme Sorensen MD [START ON 08/15/2024] thiamine (Vitamin B-1) tablet 250 mg, 250 mg, oral, Every other day, Graeme Sorensen MD Objective: Patient Vitals for the past 24 hrs: BP Temp Temp src Pulse Resp SpO2 Height Weight 08/14/24 0750 118/75 36.1 ??C (97 ??F) Temporal 81 16 98 % -- -- 08/14/24 0600 -- -- -- -- -- -- -- 82.4 kg (181 lb 9.6 oz) 08/14/24 0408 (!) 102/49 36.1 ??C (97 ??F) Temporal 76 16 98 % -- -- 08/14/24 0011 104/55 36.1 ??C (97 ??F) Temporal 79 15 97 % -- -- 08/13/24 2000 115/64 36 ??C (96.8 ??F) Temporal 82 18 98 % -- -- 08/13/24 1551 135/71 36.6 ??C (97.9 ??F) Temporal 82 15 -- -- -- 08/13/24 1126 105/51 36.4 ??C (97.5 ??F) Temporal 82 26 98 % 1.702 m (5' 7 ) 81.9 kg (180 lb 8 oz) Physical Examination: Physical Exam Constitutional: General: He is not in acute distress. Appearance: He is not ill-appearing. HENT: Head: Normocephalic and atraumatic. Cardiovascular: Rate and Rhythm: Normal rate and regular rhythm. Heart sounds: No murmur heard. Pulmonary: Breath sounds: Normal breath sounds. No wheezing or rales. Musculoskeletal: Cervical back: Normal range of motion and neck supple. Right lower leg: No edema. Left lower leg: No edema. Skin: General: Skin is warm and dry. Capillary Refill: Capillary refill takes less than 2 seconds. Neurological: Mental Status: He is alert and oriented to person, place, and time. Mental status is at baseline. Relevant Lab Results Encounter Date: 08/13/24 ECG 12 lead Result Value Ventricular Rate 86 Atrial Rate 86 [place] Interval 154 QRS DURATION 144 QT Interval 424 QTC CALCULATION(BAZETT) 507 P Ramer 37 R-Ramer -56 T Wave Ramer 114 Impression Atrial-sensed ventricular-paced rhythm Biventricular pacemaker detected Abnormal ECG When compared with ECG of 13-FEB-2024 04:45, Vent. rate has increased BY 9 BPM Confirmed by Kevin Jacobs ([id number]) on 08/13/2024 9:47:29 PM Lab Results Component Value Date TROPONINI 1.08 (HH) 02/14/2024 Complete Echo (TTE) w/wo Imaging Agent, Strain, 3D, Bubble Study Result Date: 08/14/2024 1 1 [facility] [address] [place] [address] [phone] (fax) Echocardiogram-[facility] Name: LANI LIZAMA Study Date: 08/14/2024 08:33 AM B/P: 118 mmHg/75 mmHg HR: 75 bpm Date of : 1950 Location: [facility] Height: 67 in. Age: 73 year(s) Patient Room: 3101 Weight: 181 lb. Gender: Male Patient Status: InPt BSA: 1.94 m2 Indication: Chest Pain, CABG, stents, Pacemaker/AICD, Hypertension, Diabetes Examination: Echocardiogram (Complete), Lumason Contrast Image Quality: Technically Difficult study Patient Consent: Procedure explained to patient Exam Details Contrast: I.V. dose of Lumason Conclusions Left Ventricle: The left ventricle is normal size. Global left ventricular systolic function is severelyreduced. The EF is 25 % visually. Left ventricular wall thickness is normal. Diffuse global hypokinesis. Right Ventricle: The right ventricle is normal in size. Normal right ventricular systolic function. Unable to assess right sided pressures due to lack of measurable tricuspid regurgitation. LeftAtrium: The left atrium is normal in size. Overall Conclusions: Due to suboptimal imaging Lumason contrast was administered for opacification and better delineation of endocardial borders. Measurements Left Ventricle Label Value Normal Value LVOTd 2.2 cm (19cm - 21cm) LVOT VTI 13.4 cm (18cm - 22cm)LVOT PGmax 2 mmHg LVEF visual 25 % LVDd, 2D 5.57 cm (4.2cm - 5.9cm) LVDs, 2D 4.96 cm (2.1cm - 4cm) IVSd, 2D 0.08 cm (0.6cm - 1.1cm) LVPWd, 2D 0.8 cm (0.6cm - 1cm) LV Mass, 2D ASE 80.08 g LV Mass Index, 2D ASE 41.3 g/m?? (50g/m?? - 102.4g/m??) RWT, MM 0.29 (0 - 0.42) LVSVI, 2D 16 ml/m2 LVOT PGmean 1mmHg LVSV_LVOT 51 ml Right Ventricle Label Value Normal Value TAPSE 1.5 cm Left Atrium Label Value Normal Value LA Volume, BP 50 ml (18ml - 58ml) LAESV index, BP 25.8 ml/m?? Right Atrium Label Value Normal Value RA Area 9.8 cm?? Aortic Valve Label Value Normal Value AV DVI 0.52 AV VTI 25.4 cm Mitral Valve Label Value Normal Value MV E Vmax 0.76 m/s MV A Vmax 1.04 m/s MV E/A 0.73 MV E/E' lateral 11.2 MV E' lateral 0.07 m/s Aorta Label Value Normal Value AoRoot, 2D 3.1 cm (1.4cm - 3.8cm) ValvularAssessment LVOT 0.7 - 1.1 m/sec Aortic Valve 1.0 - 1.7 m/sec Mitral Valve 0.6 - 1.3 m/sec TricuspidValve 0.3 - 0.7 m/sec Pulmonic Valve 0.6 - 0.9 m/sec Regurgitation No Trivial No No Stenosis No No No No Max Velocity 0.65 m/sec 1.25 m/s 0.76 m/sec 0.95 m/s Max Gradient 6.00 mmHg 4.00 mmHg Mean Gradient 4.00 mmHg Valve Area 2.0 cm?? Findings Left Ventricle: The left ventricle is normal size. Global left ventricular systolic function is severely reduced. The EF is 25 % visually. Left ventricularwall thickness is normal. Diffuse global hypokinesis. All scored left ventricular wall segments arehypokinetic. Right Ventricle: The right ventricle is normal in size. Normal right ventricular systolic function. Unable to assess right sided pressures due to lack of measurable tricuspid regurgitation. Left Atrium: The left atrium is normal in size. Right Atrium: The right atrium is normal in size. Mitral Valve: There is nonspecific thickening of the mitral valve leaflet. Trivial mitral regurgitation. No mitral valve stenosis. Aortic Valve: Focal aortic cusp thickening is noted. No aortic valve regurgitation. No aortic valve stenosis. Tricuspid Valve: Normal tricuspid valve. No tricuspid regurgitation. No tricuspid valve stenosis. Pulmonic Valve: Normal pulmonary valve. No pulmonary regurgitation. No pulmonic valve stenosis. Great Vessels: IVC: The IVC is not visualized. Pericardium: No pericardial effusion. Procedure Staff Reading Group: [facility] Event Marketing Assistant: MASTER Ortega, RDCS Ordering Physician: TATIANNA HAYWARD Wall Motion Scores -1 - hyperkinesia, 0 - not evaluated, 1 - normal, 2 - hypokinesia, 3 - akinesia, 4 - dyskinesia Transthoracic echo (TTE) complete Result Date: 02/13/2024 1 1 [facility] [address] [place] [address] [phone] (fax) Echocardiogram-[facility] Name: LANI LIZAMA Study Date: 02/13/2024 03:21 PM B/P: 125 mmHg/83 mmHg HR: 57 bpm Date of : 1950 Location: [facility] Height: 67 in. Age: 73 year(s) Patient Room: 3123 Weight: 172 lb. Gender: Male Patient Status: InPt BSA: 1.9 m2 Indication: Chest Pain, STEMI/ACS suspected, stents, CABG, Hypertension, Diabetes, AICD Examination: Echocardiogram (Complete), Lumason Contrast Image Quality: Poor Patient Consent: Procedure explained to patient Exam Details Contrast: I.V. dose of Lumason Conclusions Left Ventricle: The left ventricle is normal size. Global left ventricular systolic function is severely reduced. TheEF is 25 % visually. Left ventricular wall thickness is mildly increased. Regional wall motion abnormalities (see diagram). Right Ventricle: The right ventricle appears normal in size. Right ventricular systolic function appears preserved. Unable to assess right sided pressures due to lack of measur able tricuspid regurgitation. Left Atrium: The left atrium is normal in size. Mitral Valve: Mild mitral regurgitation. Overall Conclusions: Due to suboptimal imaging Lumason contrast was administeredfor opacification and better delineation of endocardial borders. Measurements Left Ventricle Label Value Normal Value LVOTd 2 cm (19cm - 21cm) LVOT VTI 9.43 cm (18cm - 22cm) LVOT PGmax 1 mmHg LVEF visual 25 % LVDd, 2D 4.64 cm (4.2cm - 5.9cm) LVDs, 2D 4.51 cm (2.1cm - 4cm) IVSd, 2D 1.21 cm (0.6cm - 1.1cm) LVPWd, 2D 1.22 cm (0.6cm - 1cm) LV Mass, 2D ASE 211.51 g LV Mass Index, 2D ASE 111.3 g/m?? (50g/m?? - 102.4g/m??) RWT, MM 0.53 (0 - 0.42) LVSVI, 2D 3.2 ml/m2 LVOT PGmean 1 mmHg LVSV_LVOT 30 ml Right Ventricle Label Value Normal Value TAPSE 1.2 cm Left Atrium Label Value Normal Value LA Volume, BP 36 ml (18ml - 58ml) LADs, 2D 3.5 cm (3cm - 4cm) LAESV index, BP 18.9 ml/m?? Right Atrium Label Value Normal Value RA Area 16.2 cm?? Aortic Valve Label Value Normal Value AV DVI 0.48 AV VTI 19.3 cm Mitral Valve Label Value Normal Value MV E Vmax 0.51 m/s MV A Vmax 0.84 m/s MV E/A 0.61 MV E/E' lat eral 11.6 MV E' lateral 0.04 m/s Aorta Label Value Normal Value AoRoot, 2D 3.1 cm (1.4cm - 3.8cm) Valvular Assessment LVOT 0.7 - 1.1 m/sec Aortic Valve 1.0 - 1.7 m/sec Mitral Valve 0.6 - 1.3 m/sec Tricuspid Valve 0.3 - 0.7 m/sec Pulmonic Valve 0.6 - 0.9 m/sec Regurgitation No Mild Trivial Stenosis No No No Max Velocity 0.54 m/sec 1.13 m/s 0.51 m/sec Max Gradient 5.00 mmHg Mean Gradient 3.00 mmHg Valve Area 1.5 cm?? Findings Left Ventricle: The left ventricle is normal size. Global left ventricular systolic function is severely reduced. The EF is 25 % visually. Left ventricular wall thickness is mildly increased. Regional wall motion abnormalities (see diagram). The basal anterior, basal infe roseptal, basal inferior, basal inferolateral, basal anterolateral, mid anterior, mid inferoseptal,mid inferior, mid inferolateral, mid anterolateral, apical anterior, apical septal, apical inferior, apical lateral and apex left ventricular wall segments are hypokinetic. The basal anteroseptal andmid anteroseptal left ventricular wall segments are akinetic. Right Ventricle: The right ventricle appears normal in size. Right ventricular systolic function appears preserved. Unable to assess right sided pressures due to lack of measurable tricuspid regurgitation. Left Atrium: The left atrium isnormal in size. Right Atrium: The right atrium is normal in size. Mitral Valve: There is nonspecific thickening of the mitral valve leaflet. Mild mitral regurgitation. No mitral valve stenosis. Aortic Valve: The aortic valve is normal. No aortic valve regurgitation. No aortic valve stenosis. The aortic valve is trileaflet. Tricuspid Valve: Normal tricuspid valve. Trivial tricuspid regurgitation. No tricuspid valve stenosis. Pulmonic Valve: Pulmonary valve appears normal. Pulmonic valve is poorly visualized. Aorta: The aortic root exhibits normal size. Great Vessels: IVC: The inferior vena cava is poorly visualized. Pericardium: No significant pericardial effusion is seen. The Attending Physi melissa has personally reviewed the examination Procedure Staff Reading Group: [facility]erring Physician: JAYSHREE HERNANDEZ Event Marketing Assistant: SHYANNE Wadsworth Ordering Physician: Christian Bergman MD Wall Motion Scores -1 -hyperkinesia, 0 - not evaluated, 1 - normal, 2 - hypokinesia, 3 - akinesia, 4 - dyskinesia Complete Echo (TTE) w/wo Imaging Agent, Strain, 3D, Bubble Study Result Date: 09/27/2023 1 1 [facility] Heart [facility] [address] [place] [address] [phone] (fax) Echocardiogram-[facility] Name: LANI LIZAMA Study Date: 09/27/2023 07:42 AM B/P: 118 mmHg/57 mmHg HR: 84 bpm Date of : 1950 Location: [facility] Height: 67 in. Age: 72 year(s) Patient Room: 3184 Weight: 175 lb. Gender: Male Patient Status: InPt BSA: 1.91 m2 Indication: Chest Pain, stents, CABG, Hypertension, Diabetes, AICD Examination: Echocardiogram (Complete), Lumason Contrast Image Quality: Fair Patient Consent: Procedure explained to patient Exam Details Contrast: I.V. dose of Lumason Conclusions Left Ventricle: The left ventricle isnormal size. Global left ventricular systolic function is severely reduced. The EF is 25 % visually. Left ventricular wall thickness is normal. Regional wall motion abnormalities (see diagram). Grade1, mild diastolic dysfunction (abnormal relaxation). Right Ventricle: The right ventricle is normalin size. Normal right ventricular systolic function. Unable to assess right sided pressures due to l ack of measurable tricuspid regurgitation. Left Atrium: The left atrium appears enlarged. Mitral Valve: Mild mitral regurgitation. Overall Conclusions: Due to suboptimal imaging Lumason contrast was administered for opacification and better delineation of endocardial borders. Measurements Left Ventricle Label Value Normal Value LVOTd 2.3 cm (19cm - 21cm) LVOT VTI 12.1 cm (18cm - 22cm) LVOT PGmax 1 mmHg LVEF visual 25 % LVDd, 2D 5.25 cm (4.2cm - 5.9cm) LVDs, 2D 5.37 cm (2.1cm - 4cm) IVSd, 2D 0.85 cm (0.6cm - 1.1cm) LVPWd, 2D 0.93 cm (0.6cm - 1cm) LV Mass, 2D ASE 169.27 g LV Mass Index, 2D ASE 88.6 g/m?? (50g/m?? - 102.4g/m??) RWT, MM 0.35 (0 - 0.42) LVSVI, 2D 1.6 ml/m2 LVOT PGmean 1 mmHg LVSV _LVOT 50 ml Right Ventricle Label Value Normal Value RVDd, 2D 3.2 cm (1.9cm - 3.8cm) TAPSE 1.5 cm Left Atrium Label Value Normal Value LA Volume, BP 56 ml (18ml - 58ml) LAESV index, BP 29.3 ml/m?? Right Atrium Label Value Normal Value RA Area 13.6 cm?? Aortic Valve Label Value Normal Value AV DVI 0.46 AV VTI 26.4 cm Mitral Valve Label Value Normal Value MV E Vmax 0.92 m/s MV A Vmax 0.99 m/s MV E/A 0.93 MV E/E' lateral 15.5 MV E' lateral 0.06 m/s Aorta Label Value Normal Value AoRoot, 2D 2.9 cm (1.4cm - 3.8cm) Great Vessels Label Value Normal Value IVC 1.5 cm (1.2cm - 2.3cm) Valvular Assessment LVOT 0.7 - 1.1 m/sec Aortic Valve 1.0 - 1.7 m/sec Mitral Valve 0.6 - 1.3 m/sec Tricuspid Valve 0.3- 0.7 m/sec Pulmonic Valve 0.6 - 0.9 m/sec Regurgitation No Mild No No Stenosis No No No No Max Velocity 0.55 m/sec 1.19 m/s 0.92 m/sec 0.85 m/s Max Gradient 6.00 mmHg 3.00 mmHg Mean Gradient 3.00 mmHg Valve Area 1.9 cm?? Findings Left Ventricle: The left ventricle is normal size. Global left ventricular systolic function is severely reduced. The EF is 25 % visually. Left ventricular wall thickness is normal. Regional wall motion abnormalities (see diagram). The basal anterior, basal anteroseptal, basal inferoseptal, basal inferior, basal inferolateral, basal anterolateral, mid anterior, mid anteroseptal, mid inferoseptal, mid inferior, mid inferolateral, mid anterolateral, apical anterior,apical inferior and apical lateral left ventricular wall segments are hypokinetic. The apical septal and apex left ventricular wall segments are akinetic. Grade 1, mild diastolic dysfunction (abnormal relaxation). Right Ventricle: The right ventricle is normal in size. Normal right ventricular systolic function. A pacemaker wire is seen in the right atrium and right ventricle. Unable to assess right sided pressures due to lack of measurable tricuspid regurgitation. Left Atrium: The left atrium appears enlarged. Right Atrium: The right atrium is normal in size. Mitral Valve: There is nonspecific thickening of the mitral valve leaflet. Mild mitral regurgitation. No mitral valve stenosis. There is minimal mitral annular calcification. Aortic Valve: Focal aortic cusp thickening is noted. No aortic valve regurgitation. No aortic valve stenosis. Tricuspid Valve: Normal tricuspid valve. No tricuspid regurgitation. No tricuspid valve stenosis. Pulmonic Valve: Normal pulmonary valve. No pulmonary regurgitation. No pulmonic valve stenosis. Aorta: The aortic root exhibits normal size. Great Ves sels: IVC: The IVC is normal in size. Respiratory inspiration greater than 50%. Pericardium: No pericardial effusion. Procedure Staff Reading Group: [facility] Event Marketing Assistant: Lorri Carbajal BS, RDCS Ordering Physician: TOMAS POPE Wall Motion Scores -1 - hyperkinesia, 0 - not evaluated, 1 - normal, 2 - hypokinesia, 3 - akinesia, 4 - dyskinesia No nuclear medicine results found for the past 12 months Relevant Imaging Results Complete Echo (TTE) w/wo Imaging Agent, Strain, 3D, Bubble Study 1 1 [facility] Heart [facility] [address] [place] [address] [phone] (fax) Echocardiogram-[facility] Name: LANI LIZAMA Study Date: 08/14/2024 08:33 AM B/P: 118 mmHg/75 mmHg HR: 75 bpm Date of : 1950 Location: [facility] Height: 67 in. Age: 73 year(s) Patient Room: 3101 Weight: 181 lb. Gender: Male Patient Status: InPt BSA: 1.94 m2 Indication: Chest Pain, CABG, stents, Pacemaker/AICD, Hypertension, Diabetes Examination: Echocardiogram (Complete), Lumason Contrast Image Quality: Technically Difficult study Patient Consent: Procedure explained to patient Exam Details Contrast: I.V. dose of Lumason Conclusions Left Ventricle: The left ventricle is normal size. Global left ventricular systolic function is severely reduced. The EF is 25 % visually. Left ventricular wall thickness is normal. Diffuse global hypokinesis. Right Ventricle: The right ventricle is normal in size. Normal right ventricular systolic function. Unable to assess right sided pressures due to lack of measurable tricuspid regurgitation. Left Atrium: The left atrium is normal in size. Overall Conclusions: Due to suboptimal imaging Lumason contrast was administered for opacification and better delineation of endocardial borders. Measurements Left Ventricle Label Value Normal Value LVOTd 2.2 cm (19cm - 21cm) LVOT VTI 13.4 cm (18cm - 22cm) LVOT PGmax 2 mmHg LVEF visual 25 % LVDd, 2D 5.57 cm (4.2cm - 5.9cm) LVDs, 2D 4.96 cm (2.1cm - 4cm) IVSd, 2D 0.08 cm (0.6cm - 1.1cm) LVPWd, 2D 0.8 cm (0.6cm - 1cm) LV Mass, 2D ASE 80.08 g LV Mass Index, 2D ASE 41.3 g/m?? (50g/m?? - 102.4g/m??) RWT, MM 0.29 (0 - 0.42) LVSVI, 2D 16 ml/m2 LVOT PGmean 1 mmHg LVSV_LVOT 51 ml Right Ventricle Label Value Normal Value TAPSE 1.5 cm Left Atrium Label Value Normal Value LA Volume, BP 50 ml (18ml - 58ml) LAESV index, BP 25.8 ml/m?? Right Atrium Label Value Normal Value RA Area 9.8 cm?? Aortic Valve Label Value Normal Value AV DVI 0.52 AV VTI 25.4 cm Mitral Valve Label Value Normal Value MV E Vmax 0.76 m/s MV A Vmax 1.04 m/s MV E/A 0.73 MV E/E' lateral 11.2 MV E' lateral 0.07 m/s Aorta Label Value Normal Value AoRoot, 2D 3.1 cm (1.4cm - 3.8cm) Valvular Assessment LVOT 0.7 - 1.1 m/sec Aortic Valve 1.0 - 1.7 m/sec Mitral Valve 0.6 - 1.3 m/sec Tricuspid Valve 0.3 - 0.7 m/sec Pulmonic Valve 0.6 - 0.9 m/sec Regurgitation No Trivial No No Stenosis No No No No Max Velocity 0.65 m/sec 1.25 m/s 0.76 m/sec 0.95 m/s Max Gradient 6.00 mmHg 4.00 mmHg Mean Gradient 4.00 mmHg Valve Area 2.0 cm?? Findings Left Ventricle: The left ventricle is normal size. Global left ventricular systolic function is severely reduced. The EF is 25 % visually. Left ventricular wall thickness is normal. Diffuse global hypokinesis. All scored left ventricular wall segments are hypokinetic. Right Ventricle: The right ventricle is normal in size. Normal right ventricular systolic function. Unable to assess right sided pressures due to lack of measurable tricuspid regurgitation. Left Atrium: The left atrium is normal in size. Right Atrium: The right atrium is normal in size. Mitral Valve: There is nonspecific thickening of the mitral valve leaflet. Trivial mitral regurgitation. No mitral valve stenosis. Aortic Valve: Focal aortic cusp thickening is noted. No aortic valve regurgitation. No aortic valve stenosis. Tricuspid Valve: Normal tricuspid valve. No tricuspid regurgitation. No tricuspid valve stenosis. Pulmonic Valve: Normal pulmonary valve. No pulmonary regurgitation. No pulmonic valve stenosis. Great Vessels: IVC: The IVC is not visualized. Pericardium: No pericardial effusion. Procedure Staff Reading Group: [facility] Event Marketing Assistant: MASTER rOtega, RDCS Ordering Physician: TATIANNA HAYWARD Wall Motion Scores -1 - hyperkinesia, 0 - not evaluated, 1 - normal, 2 - hypokinesia, 3 - akinesia, 4 - dyskinesia ASSESSMENT Chest pain HFrEF-stage C, NYHA II CAD status post CABG x 5, status post PCI with GAGAN to SVG-PDA Third-degree AV block status post PPM Peripheral vascular disease Carotid artery stenosis Diabetes mellitus CKD 3 Hematuria Bladder cancer PLAN Ordered troponin, EKG, and TTE on 08/13/2024 High sensitive troponin 200s, trend EKG at [facility] revealed atrial sensing, ventricular pacing On aspirin, Plavix, rosuvastatin, Ranexa, Imdur Toprol, spironolactone, Farxiga. Amlodipine added on 08/13 Plan for Lexiscan myocardial perfusion stress test on 08/14/2024. If the test is positive for ischemia, we will consider repeat coronary angiography. Remainder of care as per primary and urology. Thank you for consult. Cardiology will follow along. This note was, at least in part, completed using a voice clothing designer system. Every effort was made to ensure accuracy. However, inadvertent computerized clothing designer errors may be present. Minor Pagan MD PGY-4 Investigation Division [facility] Associated attestation - Tatianna Hayward MD - 08/14/2024 5:03 PM EDT Mr. Lizama was seen by Dr. Pagan and I this morning. Plan lexiscan stress test today and consider cath if positive for ischemia. I personally examined him again this afternoon with Dr. Pagan and spoke with Mr. Lizama and his son. The base of the anterior wall looks like it has some ischemia. We discussed repeat catheterization or continued medical therapy. I would recommend we add amlodipine 5 daily, have him see Dr. Bishop,do cardiac rehab at [place] and if he has uncontrolled chest pain then proceed with cath. documented in this encounter H&P Notes * Graeme Sorensen MD - 08/13/2024 1:16 PM EDT Images from the original note were not included. Hospital Medicine History and Physical 08/13/2024 1:16 PM THE HOSPITALIST TEAM PREFERS TO USE [employer] FOR NON-URGENT COMMUNICATION 7AM- 7PM. IF I DO NOT RESPOND WITHIN 20 MINUTES OR URGENT MATTERS, PLEASE CALL THROUGH THE [employer]ERAL SALES MANAGER. FROM 7PM-7AM, PLEASE PAGE [phone](COVR). Chief Complaint No chief complaint on file. History of Present Illness Lani Lizama is an 73 y.o. male 73 years old white male transferred from [facility] with intermittent chest pain anterior chest radiating to arm associated with diaphoresis denies any fever chills nausea vomiting cough. Patient has history of coronary disease status post PCI-GAGAN to SVG-PDA on status post 5 vessel CABG has history of HFrEF with EF of 15 to 20% NYHA class II status post BiV-ICD also with history of peripheral vascular disease/carotid artery stenosis. Patient required pacemaker for episode of third-degree AV block as well patient has diabetes and covers it with both basal and postprandial insulin. His labs from [facility] reveals patient having chronic kidney disease stage III with EGFR 33. Patient level of activity is very much limited due to osteoarthritis involving and shoulders. He has been complaining of intermittent painless hematuria at times profuse and was recently diagnosed with bladder cancer underwent Review of System and Physical Exam Temp: [36.4 ??C (97.5 ??F)] 36.4 ??C (97.5 ??F) Heart Rate: [82] 82 Resp: [26] 26 BP: (105)/(51) 105/51 Physical Exam Vitals reviewed. Constitutional: Appearance: Normal appearance. He is obese. HENT: Head: Normocephalic and atraumatic. Right Ear: Tympanic membrane, ear canal and external ear normal. Left Ear: Tympanic membrane, ear canal and external ear normal. Nose: Nose normal. Mouth/Throat: Mouth: Mucous membranes are moist. Pharynx: Oropharynx is clear. Eyes: Extraocular Movements: Extraocular movements intact. Conjunctiva/sclera: Conjunctivae normal. Pupils: Pupils are equal, round, and reactive to light. Neck: Comments: Bruising left side Cardiovascular: Rate and Rhythm: Normal rate and regular rhythm. Pulmonary: Effort: Pulmonary effort is normal. Breath sounds: Normal breath sounds. Abdominal: General: Abdomen is flat. Bowel sounds are normal. Palpations: Abdomen is soft. Musculoskeletal: General: Normal range of motion. Cervical back: Normal range of motion and neck supple. Skin: General: Skin is warm and dry. Capillary Refill: Capillary refill takes 2 to 3 seconds. Neurological: Mental Status: He is alert. Mental status is at baseline. Psychiatric: Behavior: Behavior normal. Review of Systems Constitutional: Positive for activity change, diaphoresis and fatigue. HENT: Negative. Eyes: Negative. Respiratory: Negative. Cardiovascular: Positive for chest pain. Negative for palpitations and leg swelling. Gastrointestinal: Negative. Endocrine: Negative for cold intolerance, heat intolerance, polydipsia, polyphagia and polyuria. Genitourinary: Positive for hematuria. Negative for decreased urine volume, difficulty urinating, dysuria, enuresis, flank pain, frequency, genital sores, penile discharge, penile swelling, scrotal swelling, testicular pain and urgency. Musculoskeletal: Positive for arthralgias, back pain and gait problem. Allergic/Immunologic: Negative for environmental allergies and food allergies. Neurological: Negative for dizziness, tremors, seizures, syncope, facial asymmetry, speech difficulty, weakness, light-headedness, numbness and headaches. Hematological: Negative. Psychiatric/Behavioral: Negative. Assessment and Plan Assessment & Plan Chest pain Chest pain-free, cycle troponin telemetry continue statin aspirin nitrates beta- jason watch for hypotension and bradycardia cardiology to see patient HFrEF (heart failure with reduced ejection fraction) ([facility]) Decongestive breath/guideline directed medical therapy limited because of renal function watch creatinine electrolytes especially potassium intake and output Coronary artery disease involving augustine coronary artery of augustine heart As above Chronic kidney disease Avoid hypovolemia and nephrotoxic meds hold lisinopril since patient on Aldactone watch potassium electrolyte creatinine renal function consider nephrology consult Type 2 diabetes mellitus without complication, with long-term current use of insulin ([facility]) Insulin blood sugar check diet Angina at rest As above Gross hematuria On antiplatelet agent watch for hematuria and follow Bladder cancer ([facility]) Recent cystoscopy follows urology CODE STATUS full code VTE Prophylaxis: Heparin subcutaneous watch for bleed ----- Focus of this inpatient stay will [...] to be followed during this hospital stay by a member of [facility]. Past Medical History Past Medical History: Diagnosis Date Carotid artery stenosis Coronary artery disease Diabetes mellitus ([facility]) Hyperlipidemia Hypertension PVD (peripheral vascular disease) Third degree heart block ([facility]) Past Surgical History Past Surgical History: Procedure Laterality Date CARDIAC CATHETERIZATION 07/12/2020 CARDIAC CATHETERIZATION 10/15/2018 CARDIAC CATHETERIZATION 02/24/2018 CARDIAC CATHETERIZATION 09/27/2015 CORONARY ARTERY BYPASS GRAFT CORONARY STENT PLACEMENT Social History Social History Socioeconomic History Marital status: Spouse name: Not on file Number of children: Not on file Years of education: Not on file Highest education level: Not on file Occupational History Not on file Tobacco Use Smoking status: Former Types: Cigarettes Smokeless tobacco: Never Substance and Sexual Activity Alcohol use: Never Drug use: Never Sexual activity: Not on file Other Topics Concern Not on file Social History Narrative Not on file Social Determinants of Health Financial Resource Strain: Low Risk (08/13/2024) Overall Financial Resource Strain (CARDIA) Difficulty of Paying Living Expenses: Not hard at all Food Insecurity: No Food Insecurity (08/13/2024) Hunger Vital Sign Worried About Running Out of Food in the Last Year: Never true Ran Out of Food in the Last Year: Not on file Transportation Needs: No Transportation Needs (08/13/2024) Transportation Lack of Transportation (Medical): No Lack of Transportation (Non-Medical): Not on file Physical Activity: Not on file Stress: Not on file Social Connections: Not on file Intimate Partner Violence: Unknown (08/13/2024) Humiliation, Afraid, Rape, and Kick questionnaire Fear of Current or Ex-Partner: No Emotionally Abused: Not on file Physically Abused: Not on file Sexually Abused: Not on file Housing Stability: Low Risk (08/13/2024) Housing Stability Vital Sign Unable to Pay for Housing in the Last Year: No Number of Times Moved in the Last Year: Not on file Homeless in the Last Year: No Family History family history includes Heart attack in his maternal grandfather, maternal grandmother, and mother;malignant neoplastic disease in his brother and father. Allergies has No Known Allergies. Prior to Admission Medications Medications Prior to Admission Medication Sig Dispense Refill Last Dose ALPRAZolam (Xanax) 0.5 mg tablet Take 1 tablet by mouth in the morning, afternoon, and at bedtime. 08/12/2024 aspirin 81 mg chewable tablet Chew 1 tablet every day by oral route. 08/12/2024 cholecalciferol (Vitamin D3) 25 MCG (1000 units) tablet Take 1,000 Units by mouth in the morning. 08/12/2024 clopidogrel (Plavix) 75 mg tablet Take 1 tablet by mouth in the morning. 08/12/2024 empagliflozin (Jardiance) 10 mg Take 1 tablet every day by oral route. 08/12/2024 insulin aspart (NovoLOG) 100 unit/mL injection vial Inject 10 Units under the skin with breakfast, with lunch, and with evening meal. Sliding scale 08/12/2024 pantoprazole (ProtoNix) 40 mg EC tablet TAKE 1 TABLET BY MOUTH DAILY ON AN EMPTY STOMACH FOLLOWED BY BREAKFAST 30 MINUTES AFTER 08/12/2024 ranolazine (Ranexa) 500 mg 12 hr tablet Take 1 tablet (500 mg) by mouth two times daily. Do not crush, chew, or split. 180 tablet 3 08/12/2024 rosuvastatin (Crestor) 40 mg tablet TAKE 1 TABLET BY MOUTH AT BEDTIME 90 tablet 3 Past Week spironolactone (Aldactone) 25 mg tablet Take 1 tablet (25 mg) by mouth in the morning. 90 tablet 3 08/12/2024 thiamine (Vitamin B-1) 250 mg tablet Take 250 mg by mouth every other day. 08/12/2024 docusate sodium (Colace) 100 mg capsule Take 100 mg by mouth in the morning. insulin detemir (Levemir) 100 unit/mL injection Inject 5 Units under the skin two times daily. isosorbide mononitrate ER (Imdur) 60 mg 24 hr tablet Take 1 tablet (60 mg) by mouth 2 times daily. 180 tablet 3 metoprolol succinate XL (Toprol-XL) 50 mg 24 hr tablet Take 3 tablets (150 mg) by mouth in the morning for 97 doses. Do not crush or chew. 291 tablet 0 nitroglycerin (Nitrostat) 0.[address] 1 TABLET UNDER TONGUE EVERY 5 MINS, UP TO 3 DOSES NEEDED FOR CHEST PAIN 90 tablet 2 thiamine (Vitamin B-1) 100 mg tablet Take 100 mg by mouth every other day. Labs Labs Reviewed CBC AND DIFFERENTIAL Narrative: The following orders were created for panel order CBC and differential. Procedure Abnormality Status --------- ------ CBC auto differential[[id number]] Please view results for these tests on the individual orders. COMPREHENSIVE METABOLIC PANEL PHOSPHORUS MAGNESIUM CBC WITH AUTO DIFFERENTIAL Imaging XR transfer of outside films This order has been auto-finalized and does not contain a result. Signed Graeme Sorensen MD Hospital Medicine 08/13/2024 1:16 PM documented in this encounter Consult Notes * Minor Pagan MD - 08/13/2024 3:56 PM EDTAssociated Order(s): IP CONSULT TO CARDIOLOGY Images from the original note were not included. Cardiology Consult Note Reason for Consult: Chest pain HPI: Mr. Lani Lizama is a 73-year-old male patient with a past medical history of CAD status post CABG x5, PCI to SVG-PDA on 08/2023, HFrEF EF 15 to 20% status post BiV ICD, peripheral vascular disease/carotid artery stenosis, third-degree AV block status post PPM, CKD 3 and recent diagnosis of bladder cancer presents with painless hematuria and chest pain. He mentions that yesterday at 10 PM, patient was about to go to sleep when he started having chest pain while laying in bed. He sat up and took nitroglycerin that improved the pain. He attempted to sleep again but once he laid down the pain came back. This time, it was radiating to both arms. He had to sit up and take nitro again. Chest pain resolved mildly and then returned. He had to sit in thechair take nitro again before deciding to go to the ER. In the ER, outpatient workup revealed mildly elevated troponin. Patient was transferred to [facility] for further evaluation and treatment. Patient mentioned that ever since he had his coronary angiography by Dr. Bishop last December/2023, he has been having more frequent episodes of chest pain requiring as needed nitro. Cardiology was consulted for further evaluation and treatment. Cardiology ROS: Review of Systems was negative except as per above Past Medical History He has a past medical history of Carotid artery stenosis, Coronary artery disease, Diabetes mellitus (CMS/HCC), Hyperlipidemia, Hypertension, PVD (peripheral vascular disease), and Third degree heartblock (CMS/HCC). Surgical History He has a past [...] every day by oral route. insulin aspart (NOVOLOG) 10 Units, subcutaneous, 3 times daily with meals, Sliding scale insulin detemir (LEVEMIR) 5 Units, subcutaneous, 2 times daily isosorbide mononitrate ER (IMDUR) 60 mg, oral, 2 times daily metoprolol succinate XL (TOPROL-XL) 150 mg, oral, Daily, Do not crush or chew. nitroglycerin (Nitrostat) 0.[address] 1 TABLET UNDER TONGUE EVERY 5 MINS, UP TO 3 DOSES NEEDED FOR CHEST PAIN pantoprazole (ProtoNix) 40 mg EC tablet TAKE 1 TABLET BY MOUTH DAILY ON AN EMPTY STOMACH FOLLOWED BY BREAKFAST 30 MINUTES AFTER ranolazine (RANEXA) 500 mg, oral, 2 times daily, Do not crush, chew, or split. rosuvastatin (CRESTOR) 40 mg, oral, Nightly spironolactone (ALDACTONE) 25 mg, oral, Daily thiamine (VITAMIN B-1) 100 mg, oral, Every other day thiamine (VITAMIN B-1) 250 mg, oral, Every other day Medications Prior to Admission Medication Sig Dispense Refill Last Dose ALPRAZolam (Xanax) 0.5 mg tablet Take 1 tablet by mouth in the morning, afternoon, and at bedtime. 08/12/2024 aspirin 81 mg chewable tablet Chew 1 tablet every day by oral route. 08/12/2024 cholecalciferol (Vitamin D3) 25 MCG (1000 units) tablet Take 1,000 Units by mouth in the morning. 08/12/2024 clopidogrel (Plavix) 75 mg tablet Take 1 tablet by mouth in the morning. 08/12/2024 empagliflozin (Jardiance) 10 mg Take 1 tablet every day by oral route. 08/12/2024 insulin aspart (NovoLOG) 100 unit/mL injection vial Inject 10 Units under the skin with breakfast, with lunch, and with evening meal. Sliding scale 08/12/2024 pantoprazole (ProtoNix) 40 mg EC tablet TAKE 1 TABLET BY MOUTH DAILY ON AN EMPTY STOMACH FOLLOWED BY BREAKFAST 30 MINUTES AFTER 08/12/2024 ranolazine (Ranexa) 500 mg 12 hr tablet Take 1 tablet (500 mg) by mouth two times daily. Do not crush, chew, or split. 180 tablet 3 08/12/2024 rosuvastatin (Crestor) 40 mg tablet TAKE 1 TABLET BY MOUTH AT BEDTIME 90 tablet 3 Past Week spironolactone (Aldactone) 25 mg tablet Take 1 tablet (25 mg) by mouth in the morning. 90 tablet 3 08/12/2024 thiamine (Vitamin B-1) 250 mg tablet Take 250 mg by mouth every other day. 08/12/2024 docusate sodium (Colace) 100 mg capsule Take 100 mg by mouth in the morning. insulin detemir (Levemir) 100 unit/mL injection Inject 5 Units under the skin two times daily. isosorbide mononitrate ER (Imdur) 60 mg 24 hr tablet Take 1 tablet (60 mg) by mouth 2 times daily. 180 tablet 3 metoprolol succinate XL (Toprol-XL) 50 mg 24 hr tablet Take 3 tablets (150 mg) by mouth in the morning for 97 doses. Do not crush or chew. 291 tablet 0 nitroglycerin (Nitrostat) 0.[address] 1 TABLET UNDER TONGUE EVERY 5 MINS, UP TO 3 DOSES NEEDED FOR CHEST PAIN 90 tablet 2 thiamine (Vitamin B-1) 100 mg tablet Take 100 mg by mouth every other day. Last Recorded Vitals Patient Vitals for the past 24 hrs: BP Temp Temp src Pulse Resp SpO2 Height Weight 08/13/24 1551 135/71 -- -- 82 15 -- -- -- 08/13/24 1126 105/51 36.4 ??C (97.5 ??F) Temporal 82 26 98 % 1.702 m (5' 7 ) 81.9 kg (180 lb 8 oz) Physical Examination: Physical Exam Constitutional: General: He is not in acute distress. Appearance: He is not ill-appearing. HENT: Head: Normocephalic and atraumatic. Cardiovascular: Rate and Rhythm: Normal rate and regular rhythm. Heart sounds: No murmur heard. Pulmonary: Breath sounds: Normal breath sounds. No wheezing or rales. Musculoskeletal: Cervical back: Normal range of motion and neck supple. Right lower leg: No edema. Left lower leg: No edema. Skin: General: Skin is warm and dry. Capillary Refill: Capillary refill takes less than 2 seconds. Neurological: Mental Status: He is alert and oriented to person, place, and time. Mental status is at baseline. Relevant Lab Results Encounter Date: 02/13/24 ECG 12 lead Result Value Ventricular Rate 77 Atrial Rate 77 [place] Interval 162 QRS DURATION 144 QT Interval 454 QTC CALCULATION(BAZETT) 513 P Ramer 51 R-Ramer -50 T Wave Ramer 114 Impression Atrial-sensed ventricular-paced rhythm Biventricular pacemaker detected Abnormal ECG When compared with ECG of 27-SEP-2023 18:58, No significant change was found Confirmed by Constanza WATERS, L.S. (2) on 02/13/2024 12:14:54 PM Lab Results Component Value Date TROPONINI 1.08 () 02/14/2024 Transthoracic echo (TTE) complete Result Date: 02/13/2024 1 1 [facility] [address] [place] [address] [phone] (fax) Echocardiogram-[facility] Name: LANI LIZAMA Study Date: 02/13/2024 03:21 PM B/P: 125 mmHg/83 mmHg HR: 57 bpm Date of : 1950 Location: [facility] Height: 67 in. Age: 73 year(s) Patient Room: 3123 Weight: 172 lb. Gender: Male Patient Status: InPt BSA: 1.9 m2 Indication: Chest Pain, STEMI/ACS suspected, stents, CABG, Hypertension, Diabetes, AICD Examination: Echocardiogram (Complete), Lumason Contrast Image Quality: Poor Patient Consent: Procedure explained to patient Exam Details Contrast: I.V. dose of Lumason Conclusions Left Ventricle: The left ventricle is normal size. Global left ventricular systolic function is severely reduced. TheEF is 25 % visually. Left ventricular wall thickness is mildly increased. Regional wall motion abnormalities (see diagram). Right Ventricle: The right ventricle appears normal in size. Right ventricular systolic function appears preserved. Unable to assess right sided pressures due to lack of measur able tricuspid regurgitation. Left Atrium: The left atrium is normal in size. Mitral Valve: Mild mitral regurgitation. Overall Conclusions: Due to suboptimal imaging Lumason contrast was administeredfor opacification and better delineation of endocardial borders. Measurements Left Ventricle Label Value Normal Value LVOTd 2 cm (19cm - 21cm) LVOT VTI 9.43 cm (18cm - 22cm) LVOT PGmax 1 mmHg LVEF visual 25 % LVDd, 2D 4.64 cm (4.2cm - 5.9cm) LVDs, 2D 4.51 cm (2.1cm - 4cm) IVSd, 2D 1.21 cm (0.6cm - 1.1cm) LVPWd, 2D 1.22 cm (0.6cm - 1cm) LV Mass, 2D ASE 211.51 g LV Mass Index, 2D ASE 111.3 g/m?? (50g/m?? - 102.4g/m??) RWT, MM 0.53 (0 - 0.42) LVSVI, 2D 3.2 ml/m2 LVOT PGmean 1 mmHg LVSV_LVOT 30 ml R ight Ventricle Label Value Normal Value TAPSE 1.2 cm Left Atrium Label Value Normal Value LA Volume, BP 36 ml (18ml - 58ml) LADs, 2D 3.5 cm (3cm - 4cm) LAESV index, BP 18.9 ml/m?? Right Atrium Label Value Normal Value RA Area 16.2 cm?? Aortic Valve Label Value Normal Value AV DVI 0.48 AV VTI 19.3 cm Mitral Valve Label Value Normal Value MV E Vmax 0.51 m/s MV A Vmax 0.84 m/s MV E/A 0.61 MV E/E' lateral 11.6 MV E' lateral 0.04 m/s Aorta Label Value Normal Value AoRoot, 2D 3.1 cm (1.4cm - 3.8cm) Valvular Assessment LVOT 0.7 - 1.1 m/sec Aortic Valve 1.0 - 1.7 m/sec Mitral Valve 0.6 - 1.3 m/sec Tricuspid Valve 0.3 - 0.7 m/sec Pulmonic Valve 0.6 - 0.9 m/sec Regurgitation No Mild Trivial Stenosis No No No Max Velocity 0.54 m/sec 1.13 m/s 0.51 m/sec Max Gradient 5.00 mmHg Mean Gradient 3.00 mmHg Valve Area 1.5 cm?? Findings Left Ventricle: The left ventricle is normal size. Global left ventricular systolic function is severely reduced. The EF is 25 % visually. Left ventricular wall thickness is mildly increased. Regional wall motion abnormalities (see diagram). The basal anterior, basal infe roseptal, basal inferior, basal inferolateral, basal anterolateral, mid anterior, mid inferoseptal,mid inferior, mid inferolateral, mid anterolateral, apical anterior, apical septal, apical inferior, apical lateral and apex left ventricular wall segments are hypokinetic. The basal anteroseptal andmid anteroseptal left ventricular wall segments are akinetic. Right Ventricle: The right ventricle appears normal in size. Right ventricular systolic function appears preserved. Unable to assess right sided pressures due to lack of measurable tricuspid regurgitation. Left Atrium: The left atrium isnormal in size. Right Atrium: The right atrium is normal in size. Mitral Valve: There is nonspecific thickening of the mitral valve leaflet. Mild mitral regurgitation. No mitral valve stenosis. Aortic Valve: The aortic valve is normal. No aortic valve regurgitation. No aortic valve stenosis. The aortic valve is trileaflet. Tricuspid Valve: Normal tricuspid valve. Trivial tricuspid regurgitation. No tricuspid valve stenosis. Pulmonic Valve: Pulmonary valve appears normal. Pulmonic valve is poorly visualized. Aorta: The aortic root exhibits normal size. Great Vessels: IVC: The inferior vena cava is poorly visualized. Pericardium: No significant pericardial effusion is seen. The Attending Physi melissa has personally reviewed the examination Procedure Staff Reading Group: [place] [facility] GroupReferring Physician: JAYSHREE HERNANDEZ Event Marketing Assistant: SHYANNE Wadsworth Ordering Physician: Christian Bergman MD Wall Motion Scores -1 -hyperkinesia, 0 - not evaluated, 1 - normal, 2 - hypokinesia, 3 - akinesia, 4 - dyskinesia Complete Echo (TTE) w/wo Imaging Agent, Strain, 3D, Bubble Study Result Date: 09/27/2023 1 1 [facility] [address] [place] [address] [phone] (fax) Echocardiogram-[facility] Name: LANI LIZAMA Study Date: 09/27/2023 07:42 AM B/P: 118 mmHg/57 mmHg HR: 84 bpm Date of : 1950 Location: [facility] Height: 67 in. Age: 72 year(s) Patient Room: 3184 Weight: 175 lb. Gender: Male Patient Status: InPt BSA: 1.91 m2 Indication: Chest Pain, stents, CABG, Hypertension, Diabetes, AICD Examination: Echocardiogram (Complete), Lumason Contrast Image Quality: Fair Patient Consent: Procedure explained to patient Exam Details Contrast: I.V. dose of Lumason Conclusions Left Ventricle: The left ventricle isnormal size. Global left ventricular systolic function is severely reduced. The EF is 25 % visually. Left ventricular wall thickness is normal. Regional wall motion abnormalities (see diagram). Grade1, mild diastolic dysfunction (abnormal relaxation). Right Ventricle: The right ventricle is normalin size. Normal right ventricular systolic function. Unable to assess right sided pressures due to l ack of measurable tricuspid regurgitation. Left Atrium: The left atrium appears enlarged. Mitral Valve: Mild mitral regurgitation. Overall Conclusions: Due to suboptimal imaging Lumason contrast was administered for opacification and better delineation of endocardial borders. Measurements Left Ventricle Label Value Normal Value LVOTd 2.3 cm (19cm - 21cm) LVOT VTI 12.1 cm (18cm - 22cm) LVOT PGmax 1 mmHg LVEF visual 25 % LVDd, 2D 5.25 cm (4.2cm - 5.9cm) LVDs, 2D 5.37 cm (2.1cm - 4cm) IVSd, 2D 0.85 cm (0.6cm - 1.1cm) LVPWd, 2D 0.93 cm (0.6cm - 1cm) LV Mass, 2D ASE 169.27 g LV Mass Index, 2D ASE 88.6 g/m?? (50g/m?? - 102.4g/m??) RWT, MM 0.35 (0 - 0.42) LVSVI, 2D 1.6 ml/m2 LVOT PGmean 1 mmHg LVSV _LVOT 50 ml Right Ventricle Label Value Normal Value RVDd, 2D 3.2 cm (1.9cm - 3.8cm) TAPSE 1.5 cm Left Atrium Label Value Normal Value LA Volume, BP 56 ml (18ml - 58ml) LAESV index, BP 29.3 ml/m?? Right Atrium Label Value Normal Value RA Area 13.6 cm?? Aortic Valve Label Value Normal Value AV DVI 0.46 AV VTI 26.4 cm Mitral Valve Label Value Normal Value MV E Vmax 0.92 m/s MV A Vmax 0.99 m/s MV E/A 0.93 MV E/E' lateral 15.5 MV E' lateral 0.06 m/s Aorta Label Value Normal Value AoRoot, 2D 2.9 cm (1.4cm - 3.8cm) Great Vessels Label Value Normal Value IVC 1.5 cm (1.2cm - 2.3cm) Valvular Assessment LVOT 0.7 - 1.1 m/sec Aortic Valve 1.0 - 1.7 m/sec Mitral Valve 0.6 - 1.3 m/sec Tricuspid Valve 0.3- 0.7 m/sec Pulmonic Valve 0.6 - 0.9 m/sec Regurgitation No Mild No No Stenosis No No No No Max Velocity 0.55 m/sec 1.19 m/s 0.92 m/sec 0.85 m/s Max Gradient 6.00 mmHg 3.00 mmHg Mean Gradient 3.00 mmHg Valve Area 1.9 cm?? Findings Left Ventricle: The left ventricle is normal size. Global left ventricular systolic function is severely reduced. The EF is 25 % visually. Left ventricular wall thickness is normal. Regional wall motion abnormalities (see diagram). The basal anterior, basal anteroseptal, basal inferoseptal, basal inferior, basal inferolateral, basal anterolateral, mid anterior, mid anteroseptal, mid inferoseptal, mid inferior, mid inferolateral, mid anterolateral, apical anterior,apical inferior and apical lateral left ventricular wall segments are hypokinetic. The apical septal and apex left ventricular wall segments are akinetic. Grade 1, mild diastolic dysfunction (abnormal relaxation). Right Ventricle: The right ventricle is normal in size. Normal right ventricular systolic function. A pacemaker wire is seen in the right atrium and right ventricle. Unable to assess right sided pressures due to lack of measurable tricuspid regurgitation. Left Atrium: The left atrium appears enlarged. Right Atrium: The right atrium is normal in size. Mitral Valve: There is nonspecific thickening of the mitral valve leaflet. Mild mitral regurgitation. No mitral valve stenosis. There is minimal mitral annular calcification. Aortic Valve: Focal aortic cusp thickening is noted. No aortic valve regurgitation. No aortic valve stenosis. Tricuspid Valve: Normal tricuspid valve. No tricuspid regurgitation. No tricuspid valve stenosis. Pulmonic Valve: Normal pulmonary valve. No pulmonary regurgitation. No pulmonic valve stenosis. Aorta: The aortic root exhibits normal size. Great Ves sels: IVC: The IVC is normal in size. Respiratory inspiration greater than 50%. Pericardium: No pericardial effusion. Procedure Staff Reading Group: [facility] Event Marketing Assistant: MASTER Ortega, RDCS Ordering Physician: TOMAS POPE Wall Motion Scores -1 - hyperkinesia, 0 - not evaluated, 1 - normal, 2 - hypokinesia, 3 - akinesia, 4 - dyskinesia No nuclear medicine results found for the past 12 months Relevant Imaging Results XR transfer of outside films This order has been auto-finalized and does not contain a result. ASSESSMENT Chest pain HFrEF-stage C, NYHA II CAD status post CABG x 5, status post PCI with GAGAN to SVG-PDA Third-degree AV block status post PPM Peripheral vascular disease Carotid artery stenosis Diabetes mellitus CKD 3 Hematuria Bladder cancer PLAN Ordered troponin, EKG, and TTE on 08/13/2024 High sensitive troponin 200s, trend EKG at [facility] revealed atrial sensing, ventricular pacing On aspirin, Plavix, rosuvastatin, Ranexa, Imdur Toprol, spironolactone, Farxiga. Amlodipine added on 08/13 Plan for Lexiscan myocardial perfusion stress test on 08/14/2024. If the test is positive for ischemia, we will consider repeat coronary angiography. Remainder of care as per primary and urology. Thank you for consult. Cardiology will follow along. This note was, at least in part, completed using a voice clothing designer system. Every effort was made to ensure accuracy. However, inadvertent computerized clothing designer errors may be present. Minor Pagan MD PGY-4 Investigation Division [facility] Associated attestation - Tatianna Hayward MD - 08/13/2024 7:18 PM EDT I personally spoke with and examined Mr. Lizama with Dr. Pagan today. I then spoke with his avionics systems integration specialist Dr. Bishop about his longitudinal care. At issue is that he has undergone extensive stenting of vein grafts (I reviewed his recent cath films) and has advanced CKD making repeat cath/contrast athigh risk for contrast nephropathy. He presents with recurrent chest pain at rest x 3, uninterpretable EKG due to LV pacing, and positive troponin consistent with non-STEMI. We will add norvasc for anginal relief and plan lexiscan stress to identify any large area of ischemia. Will proceed cautiously since risks of cath are high and risks of cardiac events / are high with poor LV function and recurrent non-STEMI presentation. documented in this encounter Nursing Notes * Keisha Canales RN - 08/14/2024 3:04 PM EDT Patient off the unit at 8:23 am for ECHO and stress test, returned to unit at 12:05 pm. documented in this encounter Miscellaneous Notes * Hospital Course - Devante Leon MD - 08/14/2024 6:44 PM EDT Mr. Lani Lizama is a 73-year-old male patient with a past medical history of CAD status post CABG x5, PCI to SVG-PDA on 08/2023, HFrEF EF 15 to 20% status post BiV ICD, peripheral vascular disease/carotid artery stenosis, third-degree AV block status post PPM, CKD 3 and recent diagnosis of bladder cancer presents with painless hematuria and chest pain. He mentions that he went to bed and was about to go to sleep when he started having chest. He sat up and took nitroglycerin that improved the pain. He attempted to sleep again but once he laid down the pain came back. This time, it was radiating to both arms. He had to sit up and take nitro again. Chest pain resolved mildly and then returned. He had to sit in the chair take nitro again before deciding to go to the ER. In the ER, outpatient workup revealed mildly elevated troponin. Patient was transferred to [facility] for further evaluation and treatment. Of note, patient mentioned that ever since he had his coronary angiography by Dr. Bishop last December/2023, he has been having more frequent episodes of chest pain requiring as needed nitro. High-sensitivity troponins up to 294. EKG was V-paced. Echo showed EF 25%. Stress test was done reported positive for reversible ischemia anterior wall. TID ratio of 0.95 and reported the calculated LV ejection fraction 62%. Patient evaluated by cardiology team and patient ideally would need coronary angiogram patient referred to be discharged. Medications were adjusted particular Norvasc added to his regimen patient to follow-up with Dr. Bishop in 1 week * Care Plan - Keisha Canales RN - 08/14/2024 6:09 PM EDT The patient is Moderately Stable - Low risk of patient condition declining or worsening The patient's goals for the shift include figure out plan The clinical goals for the shift include stable vitals,safety Patient is adequate for discharge. Problem: Safety - Adult Goal: Free from fall injury Outcome: Adequate for Discharge Problem: Discharge Planning Goal: Discharge to home or other facility with appropriate resources Outcome: Adequate for Discharge Problem: Cardiovascular - Adult Goal: Maintains optimal cardiac output and hemodynamic stability Outcome: Adequate for Discharge * Significant Event - Briseida Dang RN - 08/14/2024 12:09 PM EDT 08/14/24 1204 Admission Assessment Questions Verify insurance with patient Yes Do you understand medical disease or what brought you into the hospital? Yes Who is your current PCP? Harley Goodman Can I schedule a follow up appointment for you at the time of discharge? Yes Do you understand why you are taking your current medications? Yes Are you taking your medications as prescribed? Yes Did patient provide teach back? No Pharmacy Bedside Delivery Status Interested Does the patient have a behavioral health case manager assigned to them through their insurance? No Living Arrangement (Current/Prior to Hospitalization) Home self care (Patient lives home alone) Does the patient have history of HHC or SNF? No Assistive Device Not applicable Patient's goal for discharge Goal is to discharge home Was patient reminded that goal for discharge is 11am? No Does the patient have transportation at discharge? Yes Type of Residence Private residence Is PT/OT appropriate? No Is PT/OT ordered? No Is SW consult appropriate? No Is SW consult ordered? No Do you understand the benefits of MyChart? Yes Were you able to send link and activate MyChart? No * Care Plan - Juli Salazar RN - 08/14/2024 11:01 AM EDT Lexiscan stress test Patient information sheet explained, questions answered and signed. Patient states understanding of testing procedure Doctor consulted--NA Treatment/Decision tree utilized: chest pain Inpatient Baseline EKG paced rhythm Pt tolerated lexiscan stess test well Denied chest pain, + shortness of breath noted and resolved on own No acute ST or T wave changes noted EKG returned to normal in recovery Pt left stress lab asymptomatic and hemodynamically stable Full final report from avionics systems integration specialist to follow. Juli Salazar RN [facility] Cardiovascular Stress Lab * Care Plan - Kate Urias RN - 08/13/2024 9:28 PM EDT The patient is Moderately Stable - Low risk of patient condition declining or worsening The patient's goals for the shift include rest The clinical goals for the shift include monitor vitals, safety Problem: Pain - Adult Goal: Verbalizes/displays adequate comfort level or baseline comfort level Outcome: Progressing Problem: Safety - Adult Goal: Free from fall injury Outcome: Progressing Flowsheets (Taken 08/13/20241999) Free from fall injury: Assess patient frequently for physical needs Identify cognitive and physical deficits and behaviors that affect risk of falls [place] fall precautions as indicated by assessment Educate [...] maintained or improved Outcome: Progressing Flowsheets (Taken 08/13/20241999) Care Plan - Patient's Chronic Conditions and Co-Morbidity Symptoms are Monitored and Maintained or Improved: Monitor and assess patient's chronic conditions and comorbid symptoms for stability, deterioration,or improvement Collaborate with multidisciplinary team to address chronic and comorbid conditions and prevent exacerbation or deterioration Update acute care plan with appropriate goals if chronic or comorbid symptoms are exacerbated and prevent overall improvement and discharge Problem: Cardiovascular - Adult Goal: Maintains optimal cardiac output and hemodynamic stability Outcome: Progressing Goal: Absence of cardiac dysrhythmias or at baseline Outcome: Progressing * Assessment & Plan Note - Graeme Sorensen MD - 08/13/2024 1:28 PM EDT Associated Problem(s): HFrEF (heart failure with reduced ejection fraction) ([facility]) Decongestive breath/guideline directed medical therapy limited because of renal function watch creatinine electrolytes especially potassium intake and output * Assessment & Plan Note - Graeme Sorensen MD - 08/13/2024 1:28 PM EDT Associated Problem(s): Coronary artery disease involving augustine coronary artery of augustine heart As above * Assessment & Plan Note - Graeme Sorensen MD - 08/13/2024 1:28 PM EDT Associated Problem(s): Chronic kidney disease Avoid hypovolemia and nephrotoxic meds hold lisinopril since patient on Aldactone watch potassium electrolyte creatinine renal function consider nephrology consult * Assessment & Plan Note - Graeme Sorensen MD - 08/13/2024 1:28 PM EDT Associated Problem(s): Type 2 diabetes mellitus without complication, with long-term current use ofinsulin ([facility]) Insulin blood sugar check diet * Assessment & Plan Note - Graeme Sorensen MD - 08/13/2024 1:28 PM EDT Associated Problem(s): Angina at rest As above * Assessment & Plan Note - Graeme Sorensen MD - 08/13/2024 1:28 PM EDT Associated Problem(s): Gross hematuria On antiplatelet agent watch for hematuria and follow * Assessment & Plan Note - Graeme Sorensen MD - 08/13/2024 1:28 PM EDT Associated Problem(s): Bladder cancer (CMS/HCC) Recent cystoscopy follows urology CODE STATUS full code * Assessment & Plan Note - Graeme Sorensen MD - 08/13/2024 1:28 PM EDT Associated Problem(s): Chest pain Chest pain-free, cycle troponin telemetry continue statin aspirin nitrates beta- jason watch for hypotension and bradycardia cardiology to see patient documented in this encounter Plan of Treatment Upcoming Encounters Date Type Department Care Team (Late st Contact Info) Description 08/28/2024 8:30 AM EDT Office Visit [facility] Urology [address] [place] [id number] Last Mcmanus MD [address] [place] [address] Dr Feliz [address] [place] [id number] 10/13/2024 9:00 AM EDT Office Visit [facility] at [facility] [address] [place] [address] Pinky Bishop MD [address] [facility] [address] [facility] [place] [address] documented as of this encounter Procedures Procedure Name Priority Date/Time Associated Diagnosis Comments POCT GLUCOSE METER UNSOLICITED RESULTS Routine 08/14/2024 3:34 PM EDT POCT GLUCOSE METER UNSOLICITED RESULTS Routine 08/14/2024 12:05 PM EDT LEXISCAN STRESS MYOCARDIAL PERFUSION IMAGING Routine 08/14/2024 11:03 AM EDT COMPLETE ECHO (TTE) W/ IMAGING AGENT Routine 08/14/2024 8:59 AM EDT POCT GLUCOSE METER UNSOLICITED RESULTS Routine 08/14/2024 7:38 AM EDT HIGH SENSITIVITY TROPONIN I STAT 08/14/2024 7:14 AM EDT EXTRA TUBES Routine 08/14/2024 7:14 AM EDT LAVENDER TOP Routine 08/14/2024 7:14 AM EDT POCT GLUCOSE METER UNSOLICITED RESULTS Routine 08/13/2024 8:03 PM EDT POCT GLUCOSE METER UNSOLICITED RESULTS Routine 08/13/2024 5:59 PM EDT ECG 12-LEAD Routine 08/13/2024 5:41 PM EDT POCT GLUCOSE METER UNSOLICITED RESULTS Routine 08/13/2024 3:36 PM EDT HIGH SENSITIVITY TROPONIN I Add-On 08/13/2024 2:21 PM EDT CBC WITH AUTO DIFFERENTIAL Routine 08/13/2024 2:21 PM EDT CBC AND DIFFERENTIAL Routine 08/13/2024 2:21 PM EDT PHOSPHORUS Routine 08/13/2024 2:21 PM EDT MAGNESIUM Routine 08/13/2024 2:21 PM EDT COMPREHENSIVE METABOLIC PANEL Routine 08/13/2024 2:21 PM EDT documented in this encounter Results * (ABNORMAL) POCT glucose meter (08/14/2024 3:34 PM EDT) Glucose POC 155(H) 70 - 105 mg/dL 08/14/2024 3:47 PM EDT [facility] [place] Comment:dcundic Blood Capillary blood specimen / Unknown 08/14/2024 3:34 PM EDT 08/14/2024 3:47 PM EDT Narrative [facility] - 08/14/2024 3:47 PM EDT Waived Testing in the ED is performed under the ED CLIA certificate #[id number]. Devante Leon MD LAB BLOOD ORDERABLES [facility] ([facility] [address] [place] [address] * (ABNORMAL) POCT glucose meter (08/14/2024 12:05 PM EDT) Glucose POC 251(H) 70 - 105 mg/dL 08/14/2024 12:16 PM EDT [facility] ([facility] Comment:jdlugol Blood Capillary blood specimen / Unknown 08/14/2024 12:05 PM EDT 08/14/2024 12:16 PM EDT Narrative [facility] ([facility] - 08/14/2024 12:16 PM EDT Waived Testing in the ED is performed under the ED CLIA certificate #[id number]. Devante Leon MD LAB BLOOD ORDERABLES [facility] ([facility] [address] [place] [address] * Lexiscan Stress Myocardial Perfusion Imaging (08/14/2024 11:03 AM EDT) Anatomical Region Laterality Modality Other 08/14/2024 10:4 3 AM EDT Narrative 08/14/2024 9:52 AM EDT 1 1 [facility] Heart Station [address] [place] [address] [phone] (fax) Lexiscan Stress Myocardial Perfusion Imaging- [facility] Name: LANI LIZAMA Study Date: 08/14/2024 10:43 AM B/P: / HR: Date of : 1950 Location: [facility] Height: 67 in. Age: 73 year(s) Patient Room: 3101 Weight: 181 lb. Gender: Male Patient Status: InPt BSA: 1.94 m2 Indication: Chest Pain, CAD Examination: Lexiscan Stress Myocardial Perfusion Imaging Image Quality: Excellent Patient Consent: Procedure explained to patient, information sheet reviewed Clinical Data Smoking: Former Smoker, > 1 year Hypertension: Yes Dyslipidemia: Yes Prior Heart Failure: Yes Prior PCI: Yes Prior CABG: Yes Diabetes: Yes Known CAD: Yes Physical Activity: Light level of activity Chest Pain: Yes Dyspnea: No Comment: CKD, PVD, NSTEMI, AV block s/p pacemaker Medication Category Medication Name Dose Comment General Medications Aspirin (Aspir) General Medications Clopidogrel (Plavix) General Medications Dapagliflozin (Farxiga) General Medications Heparin General Medications Insuline Lispro (Humalog) General Medications Isosorbide Mononitrate General Medications Metoprolol General Medications Pantoprazole (Protonix) General Medications Ranexa General Medications Rosuvastatin (Crestor) General Medications spironolactone (Aldactone/Aldactazide) Conclusions Positive perfusion stress test for ischemia. A fixed inferior defect is seen consistent with scar or old infarct, anterior reversible perfusion defect abnormalities consistent with ischemia. Normal global left ventricular function with EF 62%. TID index score is 0.95 and No transient ischemia dilatation. Uninterpretable, Due to abnormal baseline V-paced rhythm. Moderate to severe coronary artery calcifications seen on attenuation CT scan. Findings Technique IV Lexiscan Nuclear cardiac stress scan with electrocardiographic analysis and myocardial perfusion imaging was performed due to difficulty walking. 0.4 mg IV Lexiscan was given over 10-15 seconds. A One-Day SPECT Rest/Gated Stress protocol was performed. Tc99m Sestamibi with a dose of 12.0 mCi was injected intravenously 1 hour prior to rest imaging. Tc99m Sestamibi with a dose of 35.1 mCi was injected intravenously immediately after Lexiscan infusion. Computer assisted reconstruction was performed by standard Gated SPECT techniques for the generation of reconstructed horizontal, vertical long-axis, and short axis projections. Patients are given a caffeinated beverage after stress portion of test. Outpatients are also given a light snack. Stress Test Findings The patient performed isometric for 03:00 minutes by the Lexiscan protocol and achieved a heart rate of 93 bpm or 62 % of the maximal predicted heart rate. The pharmacologic stress was terminated due to Stress termination reason: Infusion complete. The resting ECG demonstrates: Paced rhythm. The patient had no chest pain during the study. There were no ST changes at maximal exercise. Perfusion and Wall Motion Findings The transient ischemic dilation (TID) ratio is 0.95. The gated stress calculated left ventricular ejection fraction is 62%. Perfusion after stress: The basal anterior and mid anterior wall segments show mild reduction in the myocardium. The basal inferior, basal inferolateral, mid inferior, mid inferolateral, apical inferior and apical lateral wall segments show moderate reduction in the myocardium. All remaining scored wall segments show normal isotope distribution. Perfusion at rest: The basal inferior, basal inferolateral, mid inferior, mid inferolateral, apical inferior and apical lateral wall segments show a mild reduction in isotope distribution. All remaining scored wall segments show normal isotope distribution. Wall motion with stress: The basal inferior, basal inferolateral, mid inferior and mid inferolateral wall segments are hypokinetic. All remaining scored wall segments are normal. s sp@c Nuclear Protocol Details Stress Examination Details Type of Stress: Lexiscan Exercise Time: 03:00 Device: Treadmill HR [place] Used: 12.00 % HR Recovery: -1 bpm Frequent VE: 0 VE/min Resolution: No Symptoms Max HR: 93 bpm Target HR: 125 bpm Achieved: No Resting HR: 82 bpm Max Predicted HR: 148 bpm Achv. of Max Predicted: 62 % BP Max: 154/89 BP at Rest: 147/72 Max RPP: 37829 mmHg*bpm Max ST Lead: V6 Max ST Phase: Postinfsn Stage No. in Phase: [address] Stage: 3-[address] Amplitude: -0.[address] Robertson: -0.470 mV/s Max ST Time in Phase: 03:30 Artifact Count: 0 Chest Pain: no Pharmalogical Stress Examination Protocol Stage Name Time in Stage Load Heart Rate BP Dosage ST Level Cardiac Arrhy Cardiac Symp. Other Pain Changes Symptom Supine 10:26 1.00 mets 82 bpm 147/72 -0.750 mm Infusion 30 seconds 00:30 1.00 mets 82 bpm 147/72 -0.650 mm [id number] 00:30 1.00 mets 87 bpm 147/72 -0.650 mm INFUS1:30 00:30 1.00 mets 90 bpm 130/70 -0.700 mm INFUS2:00 00:30 1.00 mets 90 bpm 130/70 -0.800 mm INFUS2:30 00:30 1.00 mets 91 bpm 144/73 -0.800 mm INFUS3:00 00:30 1.00 mets 90 bpm 144/73 -0.800 mm 0-1 min 01:00 1.00 mets 91 bpm 143/73 -0.800 mm 1-2 min 01:00 1.00 mets 91 bpm 143/73 -0.900 mm 2-3 min 01:00 1.00 mets 90 bpm 154/89 -0.900 mm 3-4 min 01:00 1.00 mets 90 bpm 154/89 -0.950 mm 4-5 min 01:00 1.00 mets 88 bpm 145/84 -0.900 mm 5-6 min 00:16 1.00 mets 86 bpm 145/84 -0.950 mm Assessment Test Reason: Chest Discomfort Terminate Reason: Stress termination reason: Infusion complete Resting ECG: Paced rhythm ST Changes: no Chest Pain: no Arrhythmias: paced rhythm Functional Capacity: Functional capacity is not determined Overall Impression: Overall interpretation: Uninterpretable, Due to paced rhythm Region Quantitation LAD Circumflex RCA Total Summed Score Stress 2 6 6 14 Difference 8 Rest 0 3 3 6 Ischemia 2 3 3 8 Regional Score Total 4 12 12 Stress/Rest 2 Perfusion: Rest Stress/Redistribution Difference 0 - Normal, 1 - Mild Reduction, 2 - Moderate Reduction, 3 - Severe Reduction, 4 - Absent Uptake LV Function: REST STRESS 0 - Normal, 1 - Hypokinesia, 2 - Akinesia, 3 - Dyskinesia, 4 - Aneurysmal Procedure Staff Reading Group: [facility] Referring Physician: HARLEY GOODMAN Stress Research Pharmacist: Angely Dalal Green Chain Puller: Shira Zhou Ordering Physician: TATIANNA HAYWARD Advanced Practitioner: Bozena Santacruz NP Nurse: Juli aSlazar Resting Perfusion Procedure Note Yuridia Waters MD - 08/14/2024 1 1 [facility] Heart Station [address] [place] [address] [phone] (fax) Lexiscan Stress Myocardial Perfusion Imaging- [facility] Name: LANI LIZAMA Study Date: 08/14/2024 10:43 AM B/P: / HR: Date of : 1950 Location: [facility] Height: 67 in. Age: 73 year(s) Patient Room: 3101 Weight: 181 lb. Gender: Male Patient Status: InPt BSA: 1.94 m2 Indication: Chest Pain, CAD Examination: Lexiscan Stress Myocardial Perfusion Imaging Image Quality: Excellent Patient Consent: Procedure explained to patient, information sheet reviewed Clinical Data Smoking: Former Smoker, > 1 year Hypertension: Yes Dyslipidemia: Yes Prior Heart Failure: Yes Prior PCI: Yes Prior CABG: Yes Diabetes: Yes Known CAD: Yes Physical Activity: Light level of activity Chest Pain: Yes Dyspnea: No Comment: CKD, PVD, NSTEMI, AV block s/p pacemaker Medication Category Medication Name Dose Comment General Medications Aspirin (Aspir) General Medications Clopidogrel (Plavix) General Medications Dapagliflozin (Farxiga) General Medications Heparin General Medications Insuline Lispro (Humalog) General Medications Isosorbide Mononitrate General Medications Metoprolol General Medications Pantoprazole (Protonix) General Medications [place] General Medications Rosuvastatin (Crestor) General Medications spironolactone (Aldactone/Aldactazide) Conclusions Positive perfusion stress test for ischemia. A fixed inferior defect is seen consistent with scar or old infarct, anterior reversible perfusion defect abnormalities consistent with ischemia. Normal global left ventricular function with EF 62%. TID index score is 0.95 and No transient ischemia dilatation. Uninterpretable, Due to abnormal baseline V-paced rhythm. Moderate to severe coronary artery calcifications seen on attenuation CT scan. Findings Technique IV Lexiscan Nuclear cardiac stress scan with electrocardiographic analysis and myocardial perfusion imaging was performed due to difficulty walking. 0.4 mg IV Lexiscan was given over 10-15 seconds. A One-Day SPECT Rest/Gated Stress protocol was performed. Tc99m Sestamibi with a dose of 12.0 mCi was injected intravenously 1 hour prior to rest imaging. Tc99m Sestamibi with a dose of 35.1 mCi was injected intravenously immediately after Lexiscan infusion. Computer assisted reconstruction was performed by standard Gated SPECT techniques for the generation of reconstructed horizontal, vertical long-axis, and short axis projections. Patients are given a caffeinated beverage after stress portion of test. Outpatients are also given a light snack. Stress Test Findings The patient performed isometric for 03:00 minutes by the Lexiscan protocol and achieved a heart rate of 93 bpm or 62 % of the maximal predicted heart rate. The pharmacologic stress was terminated due to Stress termination reason: Infusion complete. The resting ECG demonstrates: Paced rhythm. The patient had no chest pain during the study. There were no ST changes at maximal exercise. Perfusion and Wall Motion Findings The transient ischemic dilation (TID) ratio is 0.95. The gated stress calculated left ventricular ejection fraction is 62%. Perfusion after stress: The basal anterior and mid anterior wall segments show mild reduction in the myocardium. The basal inferior, basal inferolateral, mid inferior, mid inferolateral, apical inferior and apical lateral wall segments show moderate reduction in the myocardium. All remaining scored wall segments show normal isotope distribution. Perfusion at rest: The basal inferior, basal inferolateral, mid inferior, mid inferolateral, apical inferior and apical lateral wall segments show a mild reduction in isotope distribution. All remaining scored wall segments show normal isotope distribution. Wall motion with stress: The basal inferior, basal inferolateral, mid inferior and mid inferolateral wall segments are hypokinetic. All remaining scored wall segments are normal. s sp@c Nuclear Protocol Details Stress Examination Details Type of Stress: Lexiscan Exercise Time: 03:00 Device: Treadmill HR [place] Used: 12.00 % HR Recovery: -1 bpm Frequent VE: 0 VE/min Resolution: No Symptoms Max HR: 93 bpm Target HR: 125 bpm Achieved: No Resting HR: 82 bpm Max Predicted HR: 148 bpm Achv. of Max Predicted: 62 % BP Max: 154/89 BP at Rest: 147/72 Max RPP: 61309 mmHg*bpm Max ST Lead: V6 Max ST Phase: Postinfsn Stage No. in Phase: [address] Stage: 3-[address] Amplitude: -0.[address] Robertson: -0.470 mV/s Max ST Time in Phase: 03:30 Artifact Count: 0 Chest Pain: no Pharmalogical Stress Examination Protocol Stage Name Time in Stage Load Heart Rate BP Dosage ST Level Cardiac Arrhy Cardiac Symp. Other Pain Changes Symptom Supine 10:26 1.00 mets 82 bpm 147/72 -0.750 mm Infusion 30 seconds 00:30 1.00 mets 82 bpm 147/72 -0.650 mm [id number] 00:30 1.00 mets 87 bpm 147/72 -0.650 mm INFUS1:30 00:30 1.00 mets 90 bpm 130/70 -0.700 mm INFUS2:00 00:30 1.00 mets 90 bpm 130/70 -0.800 mm INFUS2:30 00:30 1.00 mets 91 bpm 144/73 -0.800 mm INFUS3:00 00:30 1.00 mets 90 bpm 144/73 -0.800 mm 0-1 min 01:00 1.00 mets 91 bpm 143/73 -0.800 mm 1-2 min 01:00 1.00 mets 91 bpm 143/73 -0.900 mm 2-3 min 01:00 1.00 mets 90 bpm 154/89 -0.900 mm 3-4 min 01:00 1.00 mets 90 bpm 154/89 -0.950 mm 4-5 min 01:00 1.00 mets 88 bpm 145/84 -0.900 mm 5-6 min 00:16 1.00 mets 86 bpm 145/84 -0.950 mm Assessment Test Reason: Chest Discomfort Terminate Reason: Stress termination reason: Infusion complete Resting ECG: Paced rhythm ST Changes: no Chest Pain: no Arrhythmias: paced rhythm Functional Capacity: Functional capacity is not determined Overall Impression: Overall interpretation: Uninterpretable, Due to paced rhythm Region Quantitation LAD Circumflex RCA Total Summed Score Stress 2 6 6 14 Difference 8 Rest 0 3 3 6 Ischemia 2 3 3 8 Regional Score Total 4 12 12 Stress/Rest 2 Perfusion: Rest Stress/Redistribution Difference 0 - Normal, 1 - Mild Reduction, 2 - Moderate Reduction, 3 - Severe Reduction, 4 - Absent Uptake LV Function: REST STRESS 0 - Normal, 1 - Hypokinesia, 2 - Akinesia, 3 - Dyskinesia, 4 - Aneurysmal Procedure Staff Reading Group: [facility] Referring Physician: HARLEY GOODMAN Stress Research Pharmacist: Angely Dalal Green Chain Puller: Shira Zhou Ordering Physician: TATIANNA HAYWARD Advanced Practitioner: Bozena Santacruz NP Nurse: Juli Salazar Resting Perfusion Tatianna Hayward MD CV STRESS PROCEDUR ES * COMPLETE ECHO (TTE) W/ IMAGING AGENT (08/14/2024 8:59 AM EDT) Anatomical Region Laterality Modality Other 08/14/2024 8:33 AM EDT Narrative 08/14/2024 9:44 AM EDT 1 1 [facility] Heart Station [address] [place] [address] [phone] (fax) Echocardiogram-[facility] Name: LANI LIZAMA Study Date: 08/14/2024 08:33 AM B/P: 118 mmHg/75 mmHg HR: 75 bpm Date of : 1950 Location: [facility] Height: 67 in. Age: 73 year(s) Patient Room: 3101 Weight: 181 lb. Gender: Male Patient Status: InPt BSA: 1.94 m2 Indication: Chest Pain, CABG, stents, Pacemaker/AICD, Hypertension, Diabetes Examination: Echocardiogram (Complete), Lumason Contrast Image Quality: Technically Difficult study Patient Consent: Procedure explained to patient Exam Details Contrast: I.V. dose of Lumason Conclusions Left Ventricle: The left ventricle is normal size. Global left ventricular systolic function is severely reduced. The EF is 25 % visually. Left ventricular wall thickness is normal. Diffuse global hypokinesis. Right Ventricle: The right ventricle is normal in size. Normal right ventricular systolic function. Unable to assess right sided pressures due to lack of measurable tricuspid regurgitation. Left Atrium: The left atrium is normal in size. Overall Conclusions: Due to suboptimal imaging Lumason contrast was administered for opacification and better delineation of endocardial borders. Measurements Left Ventricle Label Value Normal Value LVOTd 2.2 cm (19cm - 21cm) LVOT VTI 13.4 cm (18cm - 22cm) LVOT PGmax 2 mmHg LVEF visual 25 % LVDd, 2D 5.57 cm (4.2cm - 5.9cm) LVDs, 2D 4.96 cm (2.1cm - 4cm) IVSd, 2D 0.08 cm (0.6cm - 1.1cm) LVPWd, 2D 0.8 cm (0.6cm - 1cm) LV Mass, 2D ASE 80.08 g LV Mass Index, 2D ASE 41.3 g/m?? (50g/m?? - 102.4g/m??) RWT, MM 0.29 (0 - 0.42) LVSVI, 2D 16 ml/m2 LVOT PGmean 1 mmHg LVSV_LVOT 51 ml Right Ventricle Label Value Normal Value TAPSE 1.5 cm Left Atrium Label Value Normal Value LA Volume, BP 50 ml (18ml - 58ml) LAESV index, BP 25.8 ml/m?? Right Atrium Label Value Normal Value RA Area 9.8 cm?? Aortic Valve Label Value Normal Value AV DVI 0.52 AV VTI 25.4 cm Mitral Valve Label Value Normal Value MV E Vmax 0.76 m/s MV A Vmax 1.04 m/s MV E/A 0.73 MV E/E' lateral 11.2 MV E' lateral 0.07 m/s Aorta Label Value Normal Value AoRoot, 2D 3.1 cm (1.4cm - 3.8cm) Valvular Assessment LVOT 0.7 - 1.1 m/sec Aortic Valve 1.0 - 1.7 m/sec Mitral Valve 0.6 - 1.3 m/sec Tricuspid Valve 0.3 - 0.7 m/sec Pulmonic Valve 0.6 - 0.9 m/sec Regurgitation No Trivial No No Stenosis No No No No Max Velocity 0.65 m/sec 1.25 m/s 0.76 m/sec 0.95 m/s Max Gradient 6.00 mmHg 4.00 mmHg Mean Gradient 4.00 mmHg Valve Area 2.0 cm?? Findings Left Ventricle: The left ventricle is normal size. Global left ventricular systolic function is severely reduced. The EF is 25 % visually. Left ventricular wall thickness is normal. Diffuse global hypokinesis. All scored left ventricular wall segments are hypokinetic. Right Ventricle: The right ventricle is normal in size. Normal right ventricular systolic function. Unable to assess right sided pressures due to lack of measurable tricuspid regurgitation. Left Atrium: The left atrium is normal in size. Right Atrium: The right atrium is normal in size. Mitral Valve: There is nonspecific thickening of the mitral valve leaflet. Trivial mitral regurgitation. No mitral valve stenosis. Aortic Valve: Focal aortic cusp thickening is noted. No aortic valve regurgitation. No aortic valve stenosis. Tricuspid Valve: Normal tricuspid valve. No tricuspid regurgitation. No tricuspid valve stenosis. Pulmonic Valve: Normal pulmonary valve. No pulmonary regurgitation. No pulmonic valve stenosis. Great Vessels: IVC: The IVC is not visualized. Pericardium: No pericardial effusion. Procedure Staff Reading Group: [facility] Event Marketing Assistant: MASTER Ortega, RDCS Ordering Physician: TATIANNA HAYWARD Wall Motion Scores -1 - hyperkinesia, 0 - not evaluated, 1 - normal, 2 - hypokinesia, 3 - akinesia, 4 - dyskinesia Procedure Note Fabricio Galindo MD - 08/14/2024 1 1 [facility] [address] [place] [address] [phone] (fax) Echocardiogram-[facility] Name: LANI LIZAMA Study Date: 08/14/2024 08:33 AM B/P: 118 mmHg/75 mmHg HR: 75 bpm Date of : 1950 Location: [facility] Height: 67 in. Age: 73 year(s) Patient Room: 3101 Weight: 181 lb. Gender: Male Patient Status: InPt BSA: 1.94 m2 Indication: Chest Pain, CABG, stents, Pacemaker/AICD, Hypertension, Diabetes Examination: Echocardiogram (Complete), Lumason Contrast Image Quality: Technically Difficult study Patient Consent: Procedure explained to patient Exam Details Contrast: I.V. dose of Lumason Conclusions Left Ventricle: The left ventricle is normal size. Global left ventricular systolic function is severely reduced. The EF is 25 % visually. Left ventricular wall thickness is normal. Diffuse global hypokinesis. Right Ventricle: The right ventricle is normal in size. Normal right ventricular systolic function. Unable to assess right sided pressures due to lack of measurable tricuspid regurgitation. Left Atrium: The left atrium is normal in size. Overall Conclusions: Due to suboptimal imaging Lumason contrast was administered for opacification and better delineation of endocardial borders. Measurements Left Ventricle Label Value Normal Value LVOTd 2.2 cm (19cm - 21cm) LVOT VTI 13.4 cm (18cm - 22cm) LVOT PGmax 2 mmHg LVEF visual 25 % LVDd, 2D 5.57 cm (4.2cm - 5.9cm) LVDs, 2D 4.96 cm (2.1cm - 4cm) IVSd, 2D 0.08 cm (0.6cm - 1.1cm) LVPWd, 2D 0.8 cm (0.6cm - 1cm) LV Mass, 2D ASE 80.08 g LV Mass Index, 2D ASE 41.3 g/m?? (50g/m?? - 102.4g/m??) RWT, MM 0.29 (0 - 0.42) LVSVI, 2D 16 ml/m2 LVOT PGmean 1 mmHg LVSV_LVOT 51 ml Right Ventricle Label Value Normal Value TAPSE 1.5 cm Left Atrium Label Value Normal Value LA Volume, BP 50 ml (18ml - 58ml) LAESV index, BP 25.8 ml/m?? Right Atrium Label Value Normal Value RA Area 9.8 cm?? Aortic Valve Label Value Normal Value AV DVI 0.52 AV VTI 25.4 cm Mitral Valve Label Value Normal Value MV E Vmax 0.76 m/s MV A Vmax 1.04 m/s MV E/A 0.73 MV E/E' lateral 11.2 MV E' lateral 0.07 m/s Aorta Label Value Normal Value AoRoot, 2D 3.1 cm (1.4cm - 3.8cm) Valvular Assessment LVOT 0.7 - 1.1 m/sec Aortic Valve 1.0 - 1.7 m/sec Mitral Valve 0.6 - 1.3 m/sec Tricuspid Valve 0.3 - 0.7 m/sec Pulmonic Valve 0.6 - 0.9 m/sec Regurgitation No Trivial No No Stenosis No No No No Max Velocity 0.65 m/sec 1.25 m/s 0.76 m/sec 0.95 m/s Max Gradient 6.00 mmHg 4.00 mmHg Mean Gradient 4.00 mmHg Valve Area 2.0 cm?? Findings Left Ventricle: The left ventricle is normal size. Global left ventricular systolic function is severely reduced. The EF is 25 % visually. Left ventricular wall thickness is normal. Diffuse global hypokinesis. All scored left ventricular wall segments are hypokinetic. Right Ventricle: The right ventricle is normal in size. Normal right ventricular systolic function. Unable to assess right sided pressures due to lack of measurable tricuspid regurgitation. Left Atrium: The left atrium is normal in size. Right Atrium: The right atrium is normal in size. Mitral Valve: There is nonspecific thickening of the mitral valve leaflet. Trivial mitral regurgitation. No mitral valve stenosis. Aortic Valve: Focal aortic cusp thickening is noted. No aortic valve regurgitation. No aortic valve stenosis. Tricuspid Valve: Normal tricuspid valve. No tricuspid regurgitation. No tricuspid valve stenosis. Pulmonic Valve: Normal pulmonary valve. No pulmonary regurgitation. No pulmonic valve stenosis. Great Vessels: IVC: The IVC is not visualized. Pericardium: No pericardial effusion. Procedure Staff Reading Group: [facility] Event Marketing Assistant: MASTER Ortega, RDCS Ordering Physician: TATIANNA HAYWARD Wall Motion Scores -1 - hyperkinesia, 0 - not evaluated, 1 - normal, 2 - hypokinesia, 3 - akinesia, 4 - dyskinesia Tatianna Hayward MD CV ECHO PROCEDURES * (ABNORMAL) POCT glucose meter (08/14/2024 7:38 AM EDT) Glucose POC 187(H) 70 - 105 mg/dL 08/14/2024 7:54 AM EDT [facility] ([place]) Comment:[email or web address] Blood Capillary blood specimen / Unknown 08/14/2024 7:38 AM EDT 08/14/2024 7:54 AM EDT Narrative [facility] ([facility]) - 08/14/2024 7:54 AM EDT Waived Testing in the ED is performed under the ED CLIA certificate #[id number]. Devante Leon MD LAB BLOOD ORDERABLES Performing Organization Address City/[facility]/ZIP Co de Phone Number [facility]) [address] [place] [phone] * Lavender Top (08/14/2024 7:14 AM EDT) Pathologist [facility] Extra Tube Hold for add-ons. 08/14/2024 9:01 AM EDT [facility] ([facility]) Comment:Auto resulted. Blood Venous blood specimen / Unknown 08/14/2024 7:14 AM EDT 08/14/2024 7:25 AM EDT Devante Leon MD LAB BLOOD ORDERABLES Performing Organization Address City/[facility]/ZIP Co de Phone Number [facility]) [address] [place] [phone] * (ABNORMAL) High Sensitivity Troponin I (08/14/2024 7:14 AM EDT) [facility] High Sensitivity Troponin I 160(HH) <20 ng/L 08/14/2024 8:12 AM EDT [facility]) Blood Venous blood specimen / Unknown Venipuncture / Unknown 08/14/2024 7:14 AM EDT 08/14/2024 7:25 AM EDT Devante Leon MD LAB BLOOD ORDERABLES Performing Organization Address City/[facility]/ZIP Co de Phone Number [facility]) [address] [place] [address] * POCT glucose meter (08/13/2024 8:03 PM EDT) [facility] Glucose POC 104 70 - 105 mg/dL 08/13/2024 8:15 PM EDT [facility]) Comment:[email or web address] Blood Capillary blood specimen / Unknown 08/13/2024 8:03 PM EDT 08/13/2024 8:15 PM EDT Narrative [facility] ([facility]) - 08/13/2024 8:15 PM EDT Waived Testing in the ED is performed under the ED CLIA certificate #[id number]. Tomas Pope MD LAB BLOOD ORDERABLES Performing Organization Address City/[facility]/ZIP Co de Phone Number [facility] ([facility]) [address] [place] [address] * (ABNORMAL) POCT glucose meter (08/13/2024 5:59 PM EDT) Glucose POC 207(H) 70 - 105 mg/dL 08/13/2024 6:12 PM EDT [facility] ([facility]) Comment:[email or web address] Blood Capillary blood specimen / Unknown 08/13/2024 5:59 PM EDT 08/13/2024 6:12 PM EDT [facility] ([facility]) - 08/13/2024 6:12 PM EDT Waived Testing in the ED is performed under the ED CLIA certificate #[id number]. Tomas Pope MD LAB BLOOD ORDERABLES Performing Organization Address [facility] Co de Phone Number [facility] ([facility]) [address] [place] [address] * ECG 12 lead (08/13/2024 5:41 PM EDT) Ventricular Rate 86 BPM GE MUSE Atrial Rate 86 BPM GE MUSE [place] Interval 154 ms GE MUSE QRS DURATION 144 ms GE MUSE QT Interval 424 ms GE MUSE QTC CALCULATION(BAZE TT) 507 ms GE MUSE P Ramer 37 degrees GE MUSE R-Ramer -56 degrees GE MUSE T Wave Ramer 114 degrees GE MUSE 08/13/2024 5:25 PM EDT 08/13/2024 9:47 PM EDT Impressions GE MUSE - 08/13/2024 9:47 PM EDT Atrial-sensed ventricular-paced rhythm Biventricular pacemaker detected Abnormal ECG When compared with ECG of 13-FEB-2024 04:45, Vent. rate has increased BY 9 BPM Confirmed by Kevin Jacobs ([id number]) on 08/13/2024 9:47:29 PM Narrative Procedure Note Kevin Jacobs MD - 08/13/2024 IMPRESSION: Atrial-sensed ventricular-paced rhythm Biventricular pacemaker detected Abnormal ECG When compared with ECG of 13-FEB-2024 04:45, Vent. rate has increased BY 9 BPM Confirmed by Kevin Jacobs ([id number]) on 08/13/2024 9:47:29 PM Tatianna Hayward MD ECG ORDERABLES GE MUSE * (ABNORMAL) POCT glucose meter (08/13/2024 3:36 PM EDT) Glucose POC 160(H) 70 - 105 mg/dL 08/13/2024 3:49 PM EDT [facility] ([facility]) Comment:[email or web address] Blood Capillary blood specimen / Unknown 08/13/2024 3:36 PM EDT 08/13/2024 3:49 PM EDT Narrative [facility] ([facility]) - 08/13/2024 3:49 PM EDT Waived Testing in the ED is performed under the ED CLIA certificate #[id number]. Tomas Pope MD LAB BLOOD ORDERABLES Performing Organization Address City/[facility]/ZIP Co de Phone Number [facility] ([facility]) [address] [place] [address] * (ABNORMAL) High Sensitivity Troponin I (08/13/2024 2:21 PM EDT) High Sensitivity Troponin I 294(HH) <20 ng/L 08/13/2024 5:22 PM EDT [facility] ([facility]) Blood Venous blood specimen / Unknown Venipuncture / Unknown 08/13/2024 2:21 PM EDT 08/13/2024 2:50 PM EDT Tatianna Hayward MD LAB BLOOD ORDERABL ES [facility] ([facility]) [address] [place] [address] * (ABNORMAL) CBC auto differential (08/13/2024 2:21 PM EDT) Auto WBC 7.62 4.00 - 10.60 10*3/uL 08/13/2024 3:00 PM EDT [facility] ([facility]) RBC 4.47 4.20 - 5.70 10*6/uL 08/13/2024 3:00 PM EDT [facility] ([facility]) Hemoglobin 13.1 13.0 - 17.0 g/dL 08/13/2024 3:00 PM EDT [facility] ([facility]) Hematocrit 39.8 39.0 - 50.0 % 08/13/2024 3:00 PM EDT [facility] ([facility]) MCV 89.0 82.0 - 98.0 fL 08/13/2024 3:00 PM EDT [facility] ([facility]) MCH 29.3 27.0 - 33.0 pg 08/13/2024 3:00 PM EDT [facility] ([facility]) MCHC 32.9 32.0 - 35.0 g/dL 08/13/2024 3:00 PM EDT [facility] ([facility]) RDW 14.6 11.5 - 15.0 % 08/13/2024 3:00 PM EDT [facility] ([facility]) Neutrophils % 69.8 40.0 - 72.0 % 08/13/2024 3:00 PM EDT [facility] ([facility]) Lymphocytes % 19.8(L) 20.0 - 45.0 % 08/13/2024 3:00 PM EDT [facility] ([facility]) Monocytes % 7.5 5.0 - 12.0 % 08/13/2024 3:00 PM EDT [facility] ([facility]) Eosinophils % 1.8 0.0 - 6.0 % 08/13/2024 3:00 PM EDT [facility] ([facility]) Basophils % 0.7 0.0 - 1.0 % 08/13/2024 3:00 PM EDT [facility] ([facility]) Neutrophils Absolute 5.32 1.60 - 7.60 10*3/uL 08/13/2024 3:00 PM EDT [facility] ([facility]) Lymphocytes Absolute 1.51 1.20 - 4.00 10*3/uL 08/13/2024 3:00 PM EDT [facility] ([facility]) Monocytes Absolute 0.57 0.10 - 1.00 10*3/uL 08/13/2024 3:00 PM EDT [facility] ([facility]) Eosinophils Absolute 0.14 0.00 - 0.50 10*3/uL 08/13/2024 3:00 PM EDT [facility] ([facility]) Basophils Absolute 0.05 0.00 - 0.20 10*3/uL 08/13/2024 3:00 PM EDT [facility] ([facility]) Platelets 201 150 - 400 10*3/uL 08/13/2024 3:00 PM EDT [facility] ([facility]) nRBC % 0.0 0 % 08/13/2024 3:00 PM EDT [facility] ([facility]) Immature Granulocytes % 0.4 0.0 - 1.0 % 08/13/2024 3:00 PM EDT [facility] ([facility]) Immature Granulocytes Absolute 0.03 0.00 - 0.20 10*3/uL 08/13/2024 3:00 PM EDT [facility] ([facility]) Blood Venous blood specimen / Unknown Venipuncture / Unknown 08/13/2024 2:21 PM EDT 08/13/2024 2:51 PM EDT Graeme Sorensen MD LAB BLOOD ORDERABLES [facility]) [address] [place] [address] * Magnesium (08/13/2024 2:21 PM EDT) Magnesium 1.9 1.9 - 2.7 mg/dL 08/13/2024 3:18 PM EDT [facility] ([facility]) Blood Venous blood specimen / Unknown Venipuncture / Unknown 08/13/2024 2:21 PM EDT 08/13/2024 2:50 PM EDT Graeme Sorensen MD LAB BLOOD ORDERABLES [facility] ([facility]) [address] [place], [place] [id number] * Phosphorus (08/13/2024 2:21 PM EDT) Phosphorus 3.6 2.5 - 5.0 mg/dL 08/13/2024 3:18 PM EDT [facility] ([facility]) Blood Venous blood specimen / Unknown Venipuncture / Unknown 08/13/2024 2:21 PM EDT 08/13/2024 2:50 PM EDT Graeme Sorensen MD LAB BLOOD ORDERABLES Performing Organization Address City/[facility]/ZIP Co de Phone Number [facility] ([facility]) [address] [place] [address] * (ABNORMAL) Comprehensive metabolic panel (08/13/2024 2:21 PM EDT) Sodium 137 136 - 145 mmol/L 08/13/2024 3:18 PM EDT [facility] ([facility]) Potassium 4.7 3.5 - 5.1 mmol/L 08/13/2024 3:18 PM EDT [facility] ([facility]) Chloride 108(H) 98 - 107 mmol/L 08/13/2024 3:18 PM EDT [facility] ([facility]) CO2 21 21 - 31 mmol/L 08/13/2024 3:18 PM EDT [facility] ([facility]) Anion Gap 13 7 - 20 mmol/L 08/13/2024 3:18 PM EDT [facility] ([facility]) BUN 26(H) 7 - 25 mg/dL 08/13/2024 3:18 PM EDT [facility] ([facility]) Creatinine 1.63(H) 0.70 - 1.30 mg/dL 08/13/2024 3:18 PM EDT [facility] ([facility]) BUN/Creatinine Ratio 16.0 07/30 3:18 PM T [facility] ([facility]) Glucose 165(H) 70 - 100 mg/dL 08/13/2024 3:18 PM T [facility] ([facility]) Calcium 9.1 8.6 - 10.3 mg/dL 08/13/2024 3:18 PM T [facility] ([facility]) AST 27 13 - 39 U/L 08/13/2024 3:18 PM T [facility] ([facility]) ALT (SGPT) 15 7 - 52 U/L 08/13/2024 3:18 PM T [facility] ([facility]) Alkaline Phosphatase 90 34 - 104 U/L 08/13/2024 3:18 PM T [facility] ([facility]) Total Protein 7.2 6.0 - 8.3 g/dL 08/13/2024 3:18 PM [facility] ([facility]) Albumin 4.3 3.5 - 5.7 g/dL 08/13/2024 3:18 PM [facility] ([facility]) Total Bilirubin 0.7 0.3 - 1.0 mg/dL 08/13/2024 3:18 PM [facility] ([facility]) eGFR 44.5(L) >60.0 mL/min/1. 73m*2 08/13/2024 3:18 PM [facility] ([facility]) Comment:The [facility] s estimated glomerular filtration rate (eGFR) will no longer include consideration of race in its calculation. The [employer] s eGFR Task Force developed new recommendations for [...] disproportionately affect any one group of individuals. 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 HFrEF (heart failure with reduced ejection fraction) ([facility]) Chronic kidney disease Chronic kidney disease, unspecified Type 2 diabetes mellitus without complication, with long-term current use of insulin ([facility]) Gross hematuria Bladder cancer ([facility]) Malignant neoplasm of bladder, part unspecified documented in this encounter Admitting Diagnoses Diagnosis Chest pain Unspecified chest pain documented in this encounter Administered Medications Inactive Administered Medications - up to 3 most recent administrations Medication Order MAR Action Action Date Dose Rate Site ALPRAZolam (Xanax) tablet 0.5 mg 0.5 mg, oral, 3 times daily RT, First dose on Sat08/13/24 at 1400, For 99 days Given 08/14/2024 2:39 PM EDT 0.5 mg Given 08/14/2024 7:50 AM EDT 0.5 mg Given 08/13/2024 8:08 PM EDT 0.5 mg amLODIPine (Norvasc) tablet 5 mg 5 mg, oral, Daily, First dose on Sat08/14/24 at 1730, For 30 days Given 08/14/2024 5:29 PM EDT 5 mg aspirin chewable tablet 81 mg 81 mg, oral, Daily with breakfast, First dose on Sat08/14/24 at 0800, For 99 days Given 08/14/2024 7:50 AM EDT 81 mg cholecalciferol (Vitamin D-3) tablet 1,000 Units 1,000 Units, oral, Daily, First dose on Sat08/13/24 at 1400, For 99 days Given 08/14/2024 12:15 PM EDT 1,000 Unit s Given 08/13/2024 3:53 PM EDT 1,000 Units clopidogrel (Plavix) tablet 75 mg 75 mg, oral, Daily, First dose on Sat08/13/24 at 1400, For 99 days Given 08/14/2024 12:14 PM EDT 75 mg Given 08/13/2024 3:53 PM EDT 75 mg dapagliflozin propanediol (Farxiga) tablet 10 mg 10 mg, oral, Daily, First dose on Kelly 08/13/24 at 1400 Given 08/14/2024 12:14 PM EDT 10 mg Given 08/13/2024 3:54 PM EDT 10 mg dextrose 50 % in water (D50W) syringe 25 g 25 g, intravenous, Every 15 min PRN, capillary blood glucose < 70 mg/dL and patient unable to take oral and has IV access, Starting on Kelly 08/13/24 at 1310, - Recheck blood glucose 5 minutes after dextrose administration. - Repeat treatment as ordered until blood glucose is greater than or equal to 80 mg/dL. - Provide a snack/meal within 1 hour after correction of hypoglycemia if not NPO. - If patient NPO or on enteral tube feeds, contact physician for potential additional interventions(s) (i.e. 5% or 10% dextrose IV fluids or tube feeding bolus) docusate sodium (Colace) capsule 100 mg 100 mg, oral, Daily, First dose on Kelly 08/13/24 at 1330, For 99 days Given 08/14/2024 12:15 PM EDT 100 mg Given 08/13/2024 3:54 PM EDT 100 mg glucose chewable tablet 24 g 24 g, oral, Every 15 min PRN, capillary blood glucose < 70 mg/dL and patient alert and eating, Starting on [facility] 08/13/24 at 1310, - Recheck blood glucose 5 minutes after dextrose administration. - Repeat treatment as ordered until blood glucose is greater than or equal to 80 mg/dL. - Provide a snack/meal within 1 hour after correction of hypoglycemia if not NPO. - If patient NPO or on enteral tube feeds, contact physician for potential additional interventions(s) (i.e. 5% or 10% dextrose IV fluids or tube feeding bolus) heparin (porcine) injection 5,000 Units 5,000 Units, subcutaneous, Every 12 hours scheduled, First dose on [facility] 08/13/24 at 1400, For 99 days, Indications: deep vein thrombosis prevention Given 08/14/2024 12:14 PM EDT 5,000 Units Left Lower Abdomen Given 08/13/2024 10:06 PM EDT 5,000 Units Right Upper Abdomen Given 08/13/2024 3:53 PM EDT 5,000 Units R ight Lower Abdomen insulin glargine (Lantus) injection vial 5 Units 5 Units, subcutaneous, 2 times daily, First dose on Sat08/13/24 at 1400 Given 08/14/2024 12:13 PM EDT 5 Units Left Lower Abdomen Given 08/13/2024 10:06 PM EDT 5 Units L eft Lower Abdomen Given 08/13/2024 3:52 PM EDT 5 Units Ri ght Lower Abdomen insulin lispro (HumaLOG) injection 0-4 Units 0-4 Units, subcutaneous, Nightly, First dose on Sat08/13/24 at 2200, For 99 days, BG less than 110 instructions: Hold Insulin. If BG below 70, implement hypoglycemia orders., BG 110-150: 0, BG 151-200: 0, BG 201-250: 1, BG 251-300: 2, BG 301-350: 3, BG 351-400: 4, BG greater than 400 instructions: Call Physician insulin lispro (HumaLOG) injection 0-5 Units 0-5 Units, subcutaneous, 3 times daily with meals, First dose on Sat08/13/24 at 1400, For 99 days, BG less than 110 instructions: Hold Insulin. If BG below 70, implement hypoglycemia orders., BG 110-150: 0, BG 151-200: 1, BG 201-250: 2, BG 251-300: 3, BG 301-350: 4, BG 351-400: 5, BG greater than 400 instructions: Call Physician Given 08/14/2024 5:26 PM EDT 1 Units Left Lower Abdomen Given 08/14/2024 12:13 PM EDT 3 Units L eft Lower Abdomen Given 08/14/2024 7:49 AM EDT 1 Units Le ft Lower Abdomen insulin lispro (HumaLOG) injection 10 Units 10 Units, subcutaneous, 3 times daily with meals, First dose on Sat08/13/24 at 1330, For 1 day Given 08/13/2024 6:05 PM EDT 10 Units Left Lower Abdomen Given 08/13/2024 3:52 PM EDT 10 Units Le ft Lower Abdomen isosorbide mononitrate ER (Imdur) 24 hr tablet 60 mg 60 mg, oral, 2 times daily, First dose on Sat08/13/24 at 1800, For 99 days, Do not crush, chew, or split. Given 08/14/2024 5:26 PM EDT 60 mg Given 08/14/2024 6:05 AM EDT 60 mg Given 08/13/2024 6:05 PM EDT 60 mg kit prep Tc 99m-sestamibi no.1 (Cardiolite) radio-isotope injection 10 millicurie 10 millicurie, intravenous, Once in imaging, Starting on Sat08/14/24 at 0830, For 99 days Given 08/14/2024 8:28 AM EDT 10 millicuries kit prep Tc 99m-sestamibi no.1 (Cardiolite) radio-isotope injection 30 millicurie 30 millicurie, intravenous, Once in imaging, Starting on Sat08/14/24 at 0830, For 99 days Given 08/14/2024 10:57 AM EDT 30 millicuries metoprolol succinate XL (Toprol-XL) 24 hr tablet 150 mg 150 mg, oral, Daily, First dose on Sat08/13/24 at 1400, For 99 days, Do not crush or chew. Given 08/14/2024 12:17 PM EDT 150 mg Given 08/13/2024 3:53 PM EDT 150 mg pantoprazole (ProtoNix) EC tablet 40 mg 40 mg, oral, Daily at 7am, First dose on Sat08/13/24 at 1400, For 99 days, Do not crush, chew, or split., Indication: GERD Given 08/14/2024 6:05 AM EDT 40 mg Given 08/13/2024 3:53 PM EDT 40 mg ranolazine (Ranexa) 12 hr tablet 500 mg 500 mg, oral, 2 times daily, First dose on Sat08/13/24 at 1400, For 99 days, Do not crush, chew, or split. Given 08/14/2024 12:14 PM EDT 500 mg Given 08/13/2024 10:07 PM EDT 500 mg Given 08/13/2024 3:53 PM EDT 500 mg regadenoson (Lexiscan) injection 0.4 mg 0.4 mg, intravenous, Once, On Sat08/14/24 at 0830, For 1 dose, Intraprocedure Given 08/14/2024 8:30 AM EDT 0.4 mg rosuvastatin (Crestor) tablet 40 mg 40 mg, oral, Nightly, First dose on Sat08/13/24 at 2200, For 99 days Given 08/13/2024 10:06 PM EDT 40 mg spironolactone (Aldactone) tablet 25 mg 25 mg, oral, Daily, First dose on Sat08/13/24 at 1400, For 99 days Given 08/14/2024 12:14 PM EDT 25 mg Given 08/13/2024 3:53 PM EDT 25 mg sulfur hexafluoride microsphr (Lumason) injection 24.28 mg 24.28 mg (2 mL), intravenous, Once in imaging, Starting on Sat08/14/24 at 0859, For 1 dose Given 08/14/2024 9:00 AM EDT 24.28 mg thiamine (Vitamin B-1) tablet 100 mg 100 mg, oral, Every other day, First dose on Sat08/14/24 at 1000, For 99 days Given 08/14/2024 12:14 PM EDT 100 mg documented in this encounter Active and Recently Administered Medications Times are shown in EDT. Scheduled Medication Order 08/12/2024 08/13/2024 08/14/2024 ALPRAZolam (Xanax) tablet 0.5 mg 0.5 mg, oral, 3 times daily RT, First dose on Sat08/13/24 at 1400, For 99 days 1553 (Given - Provider: Keisha Canales RN)2007 (Given - Provider: Kate Urias RN) 0750 (Given - Provider: Keisha Canales RN)1439 (Given - Provider: Keisha Canales RN)1999 (Canceled Entry - Provider: Automatic Discharge Provider - Comment: Automatically canceled at discontinue of medication order) amLODIPine (Norvasc) tablet 5 mg 5 mg, oral, Daily, First dose on Sat08/14/24 at 1730, For 30 days 1729 (Given - Provid er: Keisha Canales RN) aspirin chewable tablet 81 mg 81 mg, oral, Daily with breakfast, First dose on Sat08/14/24 at 0800, For 99 days 0750 (Given - Provid er: Keisha Canales RN) cholecalciferol (Vitamin D-3) tablet 1,000 Units 1,000 Units, oral, Daily, First dose on Sat08/13/24 at 1400, For 99 days 1553 (Given - Provider: Keisha Canales RN) 1215 (Given - Provider: Keisha Canales RN) clopidogrel (Plavix) tablet 75 mg 75 mg, oral, Daily, First dose on Sat08/13/24 at 1400, For 99 days 1553 (Given - Provider: Keisha Canales RN) 1214 (Given - Provider: Keisha Canales RN) dapagliflozin propanediol (Farxiga) tablet 10 mg 10 mg, oral, Daily, First dose on Sat08/13/24 at 1400 1554 (Given - Provider: Keisha Canales RN) 1214 (Given - Provider: Keisha Canales RN) docusate sodium (Colace) capsule 100 mg 100 mg, oral, Daily, First dose on Sat08/13/24 at 1330, For 99 days 1554 (Given - Provider: Keisha Canales RN) 1215 (Given - Provider: Keisha Canales RN) heparin (porcine) injection 5,000 Units 5,000 Units, subcutaneous, Every 12 hours scheduled, First dose on Sat08/13/24 at 1400, For 99 days, Indications: deep vein thrombosis prevention 1553 (Given - Provider: Keisha Canales RN)2206 (Given - Provider: Kate Urias RN) 1214 (Given - Provider: Keisha Canales RN) insulin glargine (Lantus) injection vial 5 Units 5 Units, subcutaneous, 2 times daily, First dose on Sat08/13/24 at 1400 1552 (Given - Provider: Keisha Canales RN)2206 (Given - Provider: Kate Urias RN) 1213 (Given - Provider: Keisha Canales RN) insulin lispro (HumaLOG) injection 0-4 Units(Linked Group 1) 0-4 Units, subcutaneous, Nightly, First dose on Sat08/13/24 at 2200, For 99 days, BG less than 110 instructions: Hold Insulin. If BG below 70, implement hypoglycemia orders., BG 110-150: 0, BG 151-200: 0, BG 201-250: 1, BG 251-300: 2, BG 301-350: 3, BG 351-400: 4, BG greater than 400 instructions: Call Physician 2200 (Not Given - Provider: Kate Urias RN - Reason: Order parameters not met) insulin lispro (HumaLOG) injection 0-5 Units(Linked Group 1) 0-5 Units, subcutaneous, 3 times daily with meals, First dose on Kelly 08/13/24 at 1400, For 99 days, BG less than 110 instructions: Hold Insulin. If BG below 70, implement hypoglycemia orders., BG 110-150: 0, BG 151-200: 1, BG 201-250: 2, BG 251-300: 3, BG 301-350: 4, BG 351-400: 5, BG greater than 400 instructions: Call Physician 1552 (Given - Provider: Keisha Canales RN)1700 (Not Given - Provider: Keisha Canales RN - Reason: Patient/family refused - Comment: see other Humalog order.) 0749 (Given - Provider: Keisha Canales RN)1213 (Given - Provider: Keisha Canales RN)1726 (Given - Provider: Keisha Canales RN) insulin lispro (HumaLOG) injection 10 Units 10 Units, subcutaneous, 3 times daily with meals, First dose on Kelly 08/13/24 at 1330, For 1 day 1552 (Given - Provider: Keisha Canales RN)1805 (Given - Provider: Keisha Canales RN) 0800 (Not Given - Provider: Keisha Canales RN - Reason: NPO) isosorbide mononitrate ER (Imdur) 24 hr tablet 60 mg 60 mg, oral, 2 times daily, First dose on Kelly 08/13/24 at 1800, For 99 days, Do not crush, chew, or split. 1805 (Given - Provider: Keisha Canales RN) 0605 (Given - Provider: Kate Urias RN)1726 (Given - Provider: Keisha Canales RN) kit prep Tc 99m-sestamibi no.1 (Cardiolite) radio-isotope injection 10 millicurie 10 millicurie, intravenous, Once in imaging, Starting on Sat08/14/24 at 0830, For 99 days 0828 (Given - Provid er: Jankilee ann Zhou ) kit prep Tc 99m-sestamibi no.1 (Cardiolite) radio-isotope injection 30 millicurie 30 millicurie, intravenous, Once in imaging, Starting on Sat08/14/24 at 0830, For 99 days 1057 (Given - Provid er: Jankilee ann Zhou ) metoprolol succinate XL (Toprol-XL) 24 hr tablet 150 mg 150 mg, oral, Daily, First dose on Sat08/13/24 at 1400, For 99 days, Do not crush or chew. 1553 (Given - Provider: Keisha Canales RN) 1217 (Given - Provider: Keisha Canales RN) pantoprazole (ProtoNix) EC tablet 40 mg 40 mg, oral, Daily at 7am, First dose on Sat08/13/24 at 1400, For 99 days, Do not crush, chew, or split., Indication: GERD 1553 (Given - Provider: Keisha Canales RN) 0605 (Given - Provider: Kate Urias RN) ranolazine (Ranexa) 12 hr tablet 500 mg 500 mg, oral, 2 times daily, First dose on Sat08/13/24 at 1400, For 99 days, Do not crush, chew, or split. 1553 (Given - Provider: Keisha Canales RN)2207 (Given - Provider: Kate Urias RN) 1214 (Given - Provider: Keisha Canales RN) regadenoson (Lexiscan) injection 0.4 mg (COMPLETED) 0.4 mg, intravenous, Once, On Sat08/14/24 at 0830, For 1 dose, Intraprocedure 0830 (Given - Provid er: Juli Salazar RN) rosuvastatin (Crestor) tablet 40 mg 40 mg, oral, Nightly, First dose on Sat08/13/24 at 2200, For 99 days 2206 (Given - Provider: Kate Urias RN) spironolactone (Aldactone) tablet 25 mg 25 mg, oral, Daily, First dose on Kelly 08/13/24 at 1400, For 99 days 1553 (Given - Provider: Keisha Canales RN) 1214 (Given - Provider: Keisha Canales RN) sulfur hexafluoride microsphr (Lumason) injection 24.28 mg (COMPLETED) 24.28 mg (2 mL), intravenous, Once in imaging, Starting on Sat08/14/24 at 0859, For 1 dose 0900 (Given - Provid er: Lorri Carbajal RDCS) thiamine (Vitamin B-1) tablet 100 mg 100 mg, oral, Every other day, First dose on Sat08/14/24 at 1000, For 99 days 1214 (Given - Provid er: Keisha Canales RN) thiamine (Vitamin B-1) tablet 250 mg 250 mg, oral, Every other day, First dose on Sat08/15/24 at 1000, For 99 days PRN Medication Order 08/12/2024 08/13/2024 08/14/2024 acetaminophen (Tylenol) tablet 650 mg 650 mg, oral, Every 6 hours PRN, mild pain (1-3 pain score), (1-3), Starting on Kelly 08/13/24 at 1315, For 99 days dextrose 50 % in water (D50W) syringe 25 g(Linked Group 2) 25 g, intravenous, Every 15 min PRN, capillary blood glucose < 70 mg/dL and patient unable to take oral and has IV access, Starting on Kelly 08/13/24 at 1310, - Recheck blood glucose 5 minutes after dextrose administration. - Repeat treatment as ordered until blood glucose is greater than or equal to 80 mg/dL. - Provide a snack/meal within 1 hour after correction of hypoglycemia if not NPO. - If patient NPO or on enteral tube feeds, contact physician for potential additional interventions(s) (i.e. 5% or 10% dextrose IV fluids or tube feeding bolus) glucose chewable tablet 24 g(Linked Group 2) 24 g, oral, Every 15 min PRN, capillary blood glucose < 70 mg/dL and patient alert and eating, Starting on Kelly 08/13/24 at 1310, - Recheck blood glucose 5 minutes after dextrose administration. - Repeat treatment as ordered until blood glucose is greater than or equal to 80 mg/dL. - Provide a snack/meal within 1 hour after correction of hypoglycemia if not NPO. - If patient NPO or on enteral tube feeds, contact physician for potential additional interventions(s) (i.e. 5% or 10% dextrose IV fluids or tube feeding bolus) nitroglycerin (Nitrostat) SL tablet 0.4 mg 0.4 mg, sublingual, Every 5 min PRN, chest pain, Starting on Kelly 08/13/24 at 1310, For 99 days, May administer up to 3 doses per episode. Linked Groups Order Group 1: insulin lispro (HumaLOG) injection 0-5 UnitsJump to med 0-5 Units, subcutaneous, 3 times daily with meals, First dose on Kelly 08/13/24 at 1400, For 99 days, BG less than 110 instructions: Hold Insulin. If BG below 70, implement hypoglycemia orders., BG 110-150: 0, BG 151-200: 1, BG 201-250: 2, BG 251-300: 3, BG 301-350: 4, BG 351-400: 5, BG greater than 400 instructions: Call Physician And insulin lispro (HumaLOG) injection 0-4 UnitsJump to med 0-4 Units, subcutaneous, Nightly, First dose on Kelly 08/13/24 at 2200, For 99 days, BG less than 110 instructions: Hold Insulin. If BG below 70, implement hypoglycemia orders., BG 110-150: 0, BG 151-200: 0, BG 201-250: 1, BG 251-300: 2, BG 301-350: 3, BG 351-400: 4, BG greater than 400 instructions: Call Physician Group 2: glucose chewable tablet 24 gJump to med 24 g, oral, Every 15 min PRN, capillary blood glucose < 70 mg/dL and patient alert and eating, Starting on Kelly 08/13/24 at 1310, - Recheck blood glucose 5 minutes after dextrose administration. - Repeat treatment as ordered until blood glucose is greater than or equal to 80 mg/dL. - Provide a snack/meal within 1 hour after correction of hypoglycemia if not NPO. - If patient NPO or on enteral tube feeds, contact physician for potential additional interventions(s) (i.e. 5% or 10% dextrose IV fluids or tube feeding bolus) Or dextrose 50 % in water (D50W) syringe 25 gJump to med 25 g, intravenous, Every 15 min PRN, capillary blood glucose < 70 mg/dL and patient unable to take oral and has IV access, Starting on Kelly 08/13/24 at 1310, - Recheck blood glucose 5 minutes after dextrose administration. - Repeat treatment as ordered until blood glucose is greater than or equal to 80 mg/dL. - Provide a snack/meal within 1 hour after correction of hypoglycemia if not NPO. - If patient NPO or on enteral tube feeds, contact physician for potential additional interventions(s) (i.e. 5% or 10% dextrose IV fluids or tube feeding bolus) documented in this encounter Care Teams [employer] Relationship Specialty Start Date End Date Harley Goodman DO [address] [place] [id number] PCP - General 03/02/22 documented as of this encounter
--- OUTSIDE RECORDS SUMMARY | 2024-08-20 09:45 | XMS_ITS | Encounter Summary ---
Author Organization [facility] Address [address] [place] [address] Care Team Providers Care Pin Game Machine Inspector Name Role Phone Harley Goodman DO Primary Care Provider [phone] Encounter Details Date Type Department Care Team (Late st Contact Info) Description 08/20/2024 9:45 AM EDT Office Visit [facility] Heart at [facility] [address] [place] [address] Pinky Bishop MD [address] [facility] [place] [address] Chronic systolic heart failure (CMS/HCC) (Primary Dx); Coronary artery disease of [place] artery of [place] heart with stable angina pectoris; Primary hypertension; Status post implantation of automatic cardioverter/defibril lator (AICD); Palpitations Social History Tobacco Use Types Packs/Day Years Used Date Smoking Tobacco: Former Cigarettes Smokeless Tobacco: Never Alcohol Use Standard Drinks/Week Comments Never 0 (1 standard drink = 0.6 oz pur e alcohol) [facility] Utilities Answer Date Recorded In the past 12 months has e [email or web address], gas, oil, or water [employer] threatened to shut off services in your [...] any time in the past 12 m onths, were you homeless or living in a long term (including now)? No 08/13/2024 Hunger Vital Sign [...] Sign Reading Time Taken Comments Blood Pressure 122/78 08/20/2024 9:43 AM EDT Pulse 80 08/20/2024 9:43 AM EDT Temperature - - Respiratory Rate - - Oxygen Saturation 97% 08/20/2024 9:43 AM EDT Inhaled Oxygen Concentration - - Weight 82.6 kg (182 lb) 08/20/2024 9:43 AM EDT Height 170.2 cm (5' 7 ) 08/20/2024 9:43 AM EDT Body Mass Index 28.51 08/20/2024 9:43 AM EDT documented in this encounter Progress Notes * Pinky Bishop MD - 08/20/2024 9:45 AM EDT Images from the original note were not included. [facility] Cardiology Clinic Note Chief Complaint: Patient here for follow up [facility] for an [place] and bladder surgery clearance. Patient states he feels pretty good. Patient has no cardiac complaints at this time HPI: Lani Lizama is a 73 y.o. male Hospital Medicine Discharge Summary Final [...] mildly elevated troponin. Patient was transferred to [facility] for further evaluation and treatment. Of note, [...] Lexiscan stress test Consultations During Admission: Cardiology UPDATE 08/20/2024 Has been doing well since being discharged; no further episodes of chest pain. No worsening shortness of breath. No orthopnea, paroxysmal, dyspnea, or lower extremity edema. Unfortunately, was recently diagnosed with bladder cancer and requires upcoming surgery. Cardiology ROS: Review of Systems Musculoskeletal: Positive for arthritis, back pain, joint pain and myalgias. All other systems reviewed and are negative. Past Medical History He has a past medical history of Carotid artery stenosis, Coronary artery disease, Diabetes mellitus (CMS/[facility]), Hyperlipidemia, Hypertension, PVD (peripheral vascular disease), and Third degree heartblock (CMS/[facility]). Surgical History He has a past [...] at bedtime., Disp: , Rfl: amLODIPine (Norvasc) 5 mg tablet, Take 1 tablet (5 mg) by mouth in the morning for 30 doses., Disp:30 tablet, Rfl: 0 aspirin 81 mg chewable tablet, Chew 1 tablet every day by oral route., Disp: , Rfl: cholecalciferol (Vitamin D3) 25 MCG (1000 units) tablet, Take 1,000 Units by mouth in the morning.,Disp: , Rfl: clopidogrel (Plavix) 75 mg tablet, Take 1 tablet by mouth in the morning., Disp: , Rfl: docusate sodium (Colace) 100 mg capsule, Take 100 mg by mouth in the morning., Disp: , Rfl: empagliflozin (Jardiance) 10 mg, Take 1 tablet every day by oral route., Disp: , Rfl: insulin aspart (NovoLOG) 100 unit/mL injection vial, Inject 10 Units under the skin with breakfast,with lunch, and with evening meal. Sliding scale, Disp: , Rfl: insulin detemir (Levemir) 100 unit/mL injection, Inject 5 Units under the skin two times daily., Disp: , Rfl: isosorbide mononitrate ER (Imdur) 60 mg 24 hr tablet, Take 1 tablet (60 mg) by mouth 2 times daily., Disp: 180 tablet, Rfl: 3 metoprolol succinate XL (Toprol-XL) 50 mg 24 hr tablet, Take 3 tablets (150 mg) by mouth in the morning for 97 doses. Do not crush or chew., Disp: 291 tablet, Rfl: 0 nitroglycerin (Nitrostat) 0.4 mg SL tablet, PLACE 1 TABLET UNDER TONGUE EVERY 5 MINS, UP TO 3 DOSESAS NEEDED FOR CHEST PAIN, Disp: 90 tablet, Rfl: 2 pantoprazole (ProtoNix) 40 mg EC tablet, TAKE 1 TABLET BY MOUTH DAILY ON AN EMPTY STOMACH FOLLOWED BY BREAKFAST 30 MINUTES AFTER, Disp: , Rfl: ranolazine (Ranexa) 500 mg 12 hr tablet, Take 1 tablet (500 mg) by mouth two times daily. Do not crush, chew, or split., Disp: 180 tablet, Rfl: 3 rosuvastatin (Crestor) 40 mg tablet, TAKE 1 TABLET BY MOUTH AT BEDTIME, Disp: 90 tablet, Rfl: 3 spironolactone (Aldactone) 25 mg tablet, Take 1 tablet (25 mg) by mouth in the morning., Disp: 90 tablet, Rfl: 3 thiamine (Vitamin B-1) 100 mg tablet, Take 100 mg by mouth every other day., Disp: , Rfl: thiamine (Vitamin B-1) 250 mg tablet, Take 250 mg by mouth every other day., Disp: , Rfl: Last Recorded Vitals BP 122/78 (BP Location: Right arm, Patient Position: Sitting) Pulse 80 Ht 1.702 m (5' 7 ) Wt 82.6 kg (182 lb) SpO2 97% BMI 28.51 kg/m?? Physical Examination: GENERAL: alert and oriented x3, [...] extremities. PSYCH: appropriate mood, affect, and judgement. PROCEDURE PHYSICIAN: Petar Foreman MD . Indications: Lani Lizama is a 72 y.o. male Who is known to have coronary artery disease status post bypass surgery in the past and many procedures for coronary stenting. He has chronic systolic heart failure status post BiV ICD placement. He presented with an NSTEMI and was referred for cardiac ca theterization. Assistants: Dr Jesus Alexander. Dr Ifrah Greer. Procedure Performed: Bilateral selective coronary angiogram. Bypass graft angiogram. Right heart catheterization. Successful balloon angioplasty and drug eluting stenting of 80% stenosis in the proximal segment ofthe saphenous venous graft to the PDA using a 5.0 mm Spider FX distal protection device, with reduction of the stenosis to 0% by a Synergy XD 4.0 x 28 mm drug eluting stent. Access into the right common femoral artery and common femoral vein under ultrasound guidance. Limited right common femoral angiogram. Deployment of 6F Angio-Seal vascular closure device in the right common femoral artery. Deployment of 6F Proglide vascular closure device in the right common femoral vein. Methods: Procedure was explained to the patient with risks and benefits; he signed informed consent. he was brought to the photographic laboratory supervisor in a fasting state. The right groin area was prepped and draped in usual fashion. Micropuncture technique was used under ultrasound guidance for access in the right common femoral artery. Inner cannular angiography was performed followed by upsizing to a 5-[place] x 11 cm sheath. Micropuncture technique was used under ultrasound guidance for access in the right common femoral vein and a 6-[place] x 11 cm sheath was placed. A 6-[place] Coffman catheter was used for right heart catheterization and measurement of pressures and calculation of cardiac output using the estimated Aayush method. Coffman catheter was removed. Bilateral selective coronary angiography was then performed using 5-[place] JL4 and JR4 diagnostic catheters. Catheters were removed. A 5-[place] IM diagnostic catheter was used to selectively engage the left subclavian artery and then selectively engage the left internal mammary artery. Angiography was performed. Catheter was removed. A 5-[place] JR4 diagnostic catheter was used for engagement of the saphenous venous graft to the OM and the saphenous venous graft to the diagonal branch, angiography was performed. A 5- [place] AR1 diagnostic catheter was used for engagement of the saphenous venous graft to the PDA, angiography was performed. Catheters were removed. Heparin was administered intravenously and therapeutic ACT was confirmed during the rest of the procedure. A 6-[place] LCB guiding catheter was advanced and used to engage the ostium of the saphenous venous graft to the OM. Baseline LISANDRA flow was 3. A [email or web address] coronary guide wire was advanced to the distal OM coronary artery. A 5.0 mm Spider FX distal protection device was advanced over the wire and deployed in the distal body of the graft. We attempted advancement of a drug-eluting stent in order to perform direct tray nting of the proximal segment of the graft however the stent would not advance given the severity of the lesion. Therefore we decided to predilate the lesion. A 3.0 x 15 mm NC Emerge non-compliant balloon was advanced and used to performed balloon angioplasty at the site of the stenosis with inflations up to 20 Jac. Angiography was performed. A Synergy XD 4.0 x 28 mm drug-eluting stent was advanced and deployed at 11 Jac across the stenosis and postdilated using a NC Emerge 4.0 x 20 mm balloon inflated up to 20 Jac throughout the length of the stented segment. Intracoronary nitroglycerin was administered followed by angiography which revealed excellent result with reduction of the stenosis to 0%, no evidence of dissection or perforation and LISANDRA 3 flow in the coronary artery and branches. The guiding catheter and wire were removed. The patient was loaded with clopidogrel 600 mg at the end of the procedure. Hemostasis was achieved by Angioseal in the femoral artery Perclose in the femoral vein. he tolerated the procedure well and was transferred back to the hospital room. Hemodynamic Data: RA: 5 RV: 39/5, 8 PA: 33/12 (21) PCWP: 11 CO: 3.7 CI: 1.94 O2 Sat: PA sat: 65%, AO sat: 98% AO: 149/67 (97) Coronary angiography: This is a right dominant circulation. Left Main: This arises from the left coronary cusp. It bifurcates into left anterior descending andcircumflex vessels. The left main has severe ostial stenosis. It is a very short vessel. Left anterior descending: It is occluded in its proximal segment. The mid to distal LAD is seen filling via a patent MENJIVAR graft. There is evidence of moderate 50% stenosis in the LAD beyond the anastomosis of the graft. Circumflex: This is a non-dominant vessel. It is occluded in its proximal segment. The obtuse marginal branch is seen filling via patent bypass graft. Right coronary artery: This arises from the right coronary cusp. It is a dominant vessel. It is occluded in its ostial to proximal segments. The distal PDA is seen filling via left to right collateral circulation. The PDA branch is seen filling via patent bypass graft. Bypass graft angiography: MENJIVAR to LAD: This graft is widely patent. Saphenous venous graft to Diagonal branch: This graft is patent with mild disease. It is anastomosed to the diagonal branch. There is moderate to severe disease right after the anastomosis but the caliber of the vessel is not appropriate for intervention. Saphenous venous graft to Obtuse marginal branch: This graft is Patent with a 80% proximal hazy stenosis. This stenosis was treated with Synergy XD drug- eluting stent. The mid body of the graft has multiple previously placed stents. The stents are patent. Saphenous venous graft to right sided PDA: This graft is patent. It has previously placed stents inthe ostial to proximal segments. The stents are patent with mild in-stent restenosis the distal body of the graft has a moderate calcified 60-70% stenosis. The PDA branch has mild diffuse disease. Limited right common femoral angiography: This showed access to be in the femoral artery with no obstructive lesions seen in the common femoral artery and its proximal branches. Impression/Findings: Severe 3 vessel coronary artery disease. and Patent 4/4 coronary bypass grafts. Occluded LAD, circumflex and RCA in their proximal segments. Patent MENJIVAR to LAD. Patent saphenous venous graft to the diagonal branch. Patent saphenous venous graft to the right-sided PDA with 60 to 70% stenosis in its distal body. Patent saphenous venous graft to the obtuse marginal branch with an 80% proximal hazy stenosis. Successful balloon angioplasty and drug eluting stenting of 80% stenosis in the proximal segment ofthe saphenous venous graft to the PDA using a 5.0 mm Spider FX distal protection device, with reduction of the stenosis to 0% by a Synergy XD 4.0 x 28 mm drug eluting stent. Normal left filling pressures. Normal right filling pressures. No pulmonary hypertension. Reduced cardiac output and cardiac index. Uncontrolled systemic hypertension. Plan: Medical therapy for coronary artery disease. Aspirin 81 mg daily for life. Dual antiplatelet therapy with Aspirin 81 mg daily for life and Clopidogrel 75 mg daily for 12 months, preferably longer given aggressive disease and history of multi vessel stenting. Statin therapy for life. Guideline directed medical therapy for heart failure. Further recommendations per inpatient Cardiology service. Follow up in Cardiology Clinic with Dr Pinky Bishop. Petar Foreman MD Lexiscan stress test 08/14/2024: Positive perfusion stress test for ischemia. A fixed inferior defect is seen consistent with scar or old infarct, anterior reversible perfusion defect abnormalities consistent with ischemia. Normal global left ventricular function with EF 62%. TID index score is 0.95 and No transient ischemia dilatation. Patient: LANI LIZAMA Study Date: 08/14/2024 10:43 AM Page 2 of 5 CC209 Uninterpretable, Due to abnormal baseline V-paced rhythm. Moderate to severe coronary artery calcifications seen on attenuation CT scan. Echocardiogram-[facility] Name: LANI LIZAMA Study Date: 08/14/2024 08:33 AM B/P: 118 mmHg/75 mmHg HR: 75 bpm Date of : 1950 Location: [facility] Height: 67 in. Age:73 year(s) Patient Room : 3101 Weight: 181 lb. Gender: Male Patient Status: InPt BSA: 1.94 m2 Indication: Chest Pain, CABG, stents, Pacemaker/AICD, Hypertension, Diabetes Examination: Echocardiogram (Complete), Lumason Contrast Image Quality: Technically Difficult study Patient Consent: Procedure explained to patient s p @ c 3 Exam Details Contrast: I.V. dose of Lumason [...] for opacification and better delineation of endocardial borders Assessment: 1. Coronary atherosclerosis - CATH 09/2018 bypass grafts patent; mild ISR CATH 12/2021 Patent grafts, worsening [place] vessel disease S/p Successful balloon angioplasty and drug eluting stenting of 80% stenosis in the proximal segment of the saphenous venous graft to the PDA using a 5.0 mm Spider FX distal protection device, with reduction of the stenosis to 0% by a Synergy XD 4.0 x 28 mm drug eluting stent. -Continue risk factor modifications- heart healthy diet, exercise as tolerated and continue medications -Stable -Continue ASA, lovastatin, plavix, coreg, imdur, lisinopril, and jardiance I25.10: Atherosclerotic heart disease of [place] coronary artery without angina pectoris 2. Peripheral vascular disease - DISTAL AORTIC STENOSIS s/p COST REPORT CLERK/STENT 11/2016 -Denies claudication sx's - stable I73.9: Peripheral vascular disease, unspecified PERIPHERAL ARTERIAL DISEASE OF THE LEG: CARE INSTRUCTIONS 3. Essential hypertension - 155/68 UnControlled, continue current medication regimen but will increase amlodipine to 10 mg daily- pt to call for any concerns of increased leg swelling. script for b/p cuff given to pt and asked pt to monitor b/p twice daily and goal is 130/80 por less I10: Essential (primary) hypertension HIGH BLOOD PRESSURE: CARE INSTRUCTIONS LEARNING ABOUT HIGH BLOOD PRESSURE AUTOMATIC BLOOD PRESSURE MONITOR WITH CUFF, UPPER ARM - Use as directed. Qty: 1 Unit Refills: 0 Supplier: N/A amlodipine 10 mg tablet - Take 1 tablet(s) every day by oral route as directed for 90 days. Qty: 90 tablet(s) Refills: 5 Pharmacy: [id number] 4. Hyperlipidemia - well controlled continue statin E78.5: Hyperlipidemia, unspecified E78.2: Mixed hyperlipidemia HIGH CHOLESTEROL: CARE INSTRUCTIONS 5. History of coronary artery bypass grafting - stable Z95.1: Presence of aortocoronary bypass graft 6. Type 2 diabetes mellitus without complication - On Jardiance E11.9: Type 2 diabetes mellitus without complications 7. COVID-19 - Recent infection U07.1: COVID-19 8. Carotid artery stenosis - repeat carotid US to evaluate stenosis continue statin I65.29: Occlusion and stenosis of unspecified carotid artery US CAROTID ART HAILEY 9. 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 Pt feels better althiough intitial ECHO shows EF 20%. Repeat ECHO [id number] 10. Bradycardia, Complete heart block s/p permanent pacemaker 11. Orthostatic hypotension, syncope and possible autonomic dysfunction related to longstanding diabetes mellitus 12. High atrial rates on device interrogation; suspect atrial tachycardia versus atrial fibrillation. This may have contributed to his worsening ejection fraction. 13. Preoperative evaluation Bladder cancer PLAN: Continue optimal medical therapy for coronary artery disease including dual antiplatelet therapy, high intensity statin therapy, a beta-jason. Given heart failure with reduced ejection fraction, he is appropriately on a beta-jason, an [id number] and spironolactone. He has history of chronic kidney disease and a RAAS inhibitor/ARNI isrelatively contraindicated. He was on this in the past. Continue Imdur and calcium channel jason in the form of Norvasc. May uptitrate as needed for symptom relief. Given his recent non-ST elevation myocardial infarction, he would be at high risk to proceed with any surgery that requires general anesthesia at this time. It would be preferable to wait for 4 to 6 weeks after the coronary event and at that time he would be considered moderate to high . Would not pursue further cardiovascular testing at this time. If at all possible, would not interrupt aspirin or Plavix; if absolutely necessary, Plavix could be held for maximum of 5 days before surgery and resumed once acceptable. Return to clinic in 3-4 months or sooner should problems arise Pinky Bishop MD, MPH, [facility], [facility], [facility] Interventional Cardiology Pager Email: [email or web address] in this encounter Plan of Treatment Upcoming Encounters Date Type Department Care Team (Late st Contact Info) Description 08/28/2024 8:30 AM EDT Office Visit [facility] Urology [address] [place] [id number] Last Mcmanus MD [address] [place] [phone] 10/13/2024 9:00 AM EDT Office Visit [facility] Heart at [facility] [address] [place] [address] Pinky Bishop MD [address] [facility] [place] [address] documented as of this encounter Visit Diagnoses Diagnosis Chronic systolic heart failure (CMS/HCC)- Primary Chronic systolic heart failure Coronary artery disease of [place] artery of [place] heart with stable angina pectoris Primary hypertension Unspecified essential hypertension Status post implantation of automatic cardioverter/defibrillator (AICD) Palpitations documented in this encounter Care Teams Pin Game Machine Inspector Relationship Specialty Start Date End Date Harley Goodman DO [address] [facility] [place] [address] PCP - General 03/02/22 documented as of this encounter
--- OUTSIDE RECORDS SUMMARY | 2024-08-27 07:21 | XMS_ITS | Clinical Summary ---
Author Organization [facility] Address [address] [place] [address] Care Team Providers Care Electronics Computer Mechanic Name Role Phone Harley Goodman Primary Care Provider [phone] Allergies Active Allergy Reactions Criticality Noted Date Comments Other 07/28/2018 Other Reaction(s): Unknown Received name: Nkda Medications pantoprazole (ProtoNix) 40 MG EC tablet TAKE 1 TABLET BY MOUTH DAILY ON AN EMPTY STOMACH FOLLOWED BY BREAKFAST 30 MINUTES AFTER 3 Active nitroglycerin (Nitrostat) 0.[address] 1 TABLET UNDER TONGUE EVERY 5 MINS, UP TO 3 DOSES NEEDED FOR CHEST PAIN Active metoprolol succinate XL (Toprol-XL) 50 MG 24 hr tablet 1 (one) time each day at the same time. Active lovastatin (Mevacor) 40 MG tablet Take 40 mg by mouth in the evening. 3 Active loratadine (Claritin) 10 MG tablet 1 (one) time each day at the same time. Active lisinopril 5 MG tablet Take 5 mg by mouth in the morning. 3 Active isosorbide mononitrate ER (Imdur) 60 MG 24 hr tablet Take 60 mg by mouth in the morning and 60 mg before bedtime. 3 Active insulin regular (HumuLIN R,NovoLIN R) 100 UNIT/ML injection Inject 30 Units under the skin in the morning and 30 Units at noon and 30 Units in the evening. Inject with meals. Active insulin lispro (HumaLOG) 100 UNIT/ML injection Subcutaneous Active insulin glargine (Lantus SoloStar) 100 UNIT/ML pen Subcutaneous for 90 Active insulin detemir (Levemir) 100 UNIT/ML injection Inject under the skin twice a day. Active Insulin Aspart 100 UNIT/ML solution Inject under the skin. Active HYDROcodone-diony taminophen (Mingo) 5-325 MG tablet TAKE 1 TABLET BY MOUTH EVERY 4 TO 6 HOURS NEEDED FOR PAIN 3 Active famotidine (Pepcid) 40 MG tablet Take 40 mg by mouth in the morning. Active clopidogrel (Plavix) 75 MG tablet Take 75 mg by mouth in the morning. Active cholecalciferol (Vitamin D-3) 25 MCG (1000 UT) capsule Take 1,000 Units by mouth in the morning. Active carvedilol (Coreg) 12.5 MG tablet Take 12.5 mg by mouth in the morning and 12.5 mg in the evening. Take with meals. 3 Active bumetanide (Bumex) 0.5 MG tablet Take 0.5 mg by mouth in the morning. 3 Active atorvastatin (Lipitor) 80 MG tablet 1 (one) time each day at the same time. Active aspirin 81 MG chewable tablet Chew 1 tablet every day by oral route. Active amLODIPine (Norvasc) 10 MG tablet Take 10 mg by mouth in the morning. as directed. 3 Active ALPRAZolam (Xanax) 0.5 MG tablet Take 1 tablet by mouth in the morning and 1 tablet at noon and 1 tablet in the evening. 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 10/12/2022 Age-related nuclear cataract of both eyes 2022 Dry eyes 10/12/2022 Blepharitis of upper and lower eyelids of both e yes 10/12/2022 Encounters Date Type Department Care Team Description 06/18/2024 2:20 PM EDT Office Visit [facility] [address] [facility] [address] [place] [id number] Kenneth Aguilar DPM Diabetes 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, without long-term current use of insulin ([facility]) (Primary Dx); Pain due to onychomycosis of toenails of both feet; Xerosis cutis 06/18/2024 Bamboo flowsheet [facility] [address] [facility] [address] [place] [id number] Kenneth Aguilar DPM 06/18/2024 Travel from Last 3 Months Family History Medical History Relation Name Comments Cancer Father Diabetes Mother Heart disease Mother Relation Name Status Comments Father Mother Social History Tobacco Use Types Packs/Day Years Used Date Smoking Tobacco: Never Smokeless Tobacco: Never Tobacco Cessation:Counseling Given: Yes Alcohol Use Standard Drinks/Week Comments Defer 0 (1 standard drink = 0.6 oz pur e alcohol) Sex and Gender Information Value Date Recorded Sex Assigned at Not on file Legal Sex Male 8:34 PM EDT Gender Identity Not on file Sexual Orientation Not on file Last Filed Vital Signs Vital Sign Reading Time Taken Comments Blood Pressure 126/78 06/18/2024 2:19 PM EDT Pulse 86 06/18/2024 2:19 PM EDT Temperature - - Respiratory Rate 18 04/02/2024 11:44 AM EST Oxygen Saturation - - Inhaled Oxygen Concentration - - Weight 77.6 kg (171 lb) 06/18/2024 2:19 PM EDT Height 170.2 cm (5' 7 ) 06/18/2024 2:19 PM EDT Body Mass Index 26.78 06/18/2024 2:19 PM EDT Plan of Treatment Upcoming Encounters Date Type Department Care Team ([facility] st Contact Info) Description 08/27/2024 2:00 PM EDT Office Visit [facility] [address] [facility] [address] [place] [address] Kenneth Aguilar DPM [address] [facility] [address] [place] [address] Health Maintenance Due Date Last Done Comments CT Colonography 1951 FIT 1951 FOBT 1950 Sigmoidoscopy 1950 FIT-DNA 08/16/2023 08/15/2020 Colonoscopy 07/11/2031 07/10/2021 Colorectal Cancer Screening 07/11/2031 Pneumococcal Vaccine: 65+ Years Completed 01/17/2018, 11/14/2016, 04/02/2016 Influenza Vaccine Completed 12/12/2023, , 12/15/2021, Additional history exists Insurance [employer] [place] Care Teams Electronics Computer Mechanic Relationship Specialty Start Date End Date Harley Goodman DO PCP - General Internal Medicine 11/07/23
--- OUTSIDE RECORDS SUMMARY | 2024-08-27 07:21 | XMS_ITS | Clinical Summary ---
Author Organization [employer] Address [id number] [address] [place] [address] Care Team Providers Care Document Improvement Specialist Name Role Phone Harley Goodman DO Primary Care Provider [phone] Allergies No known active allergies Medications carvedilol (COREG) 25 mg tablet TAKE ONE TABLET BY MOUTH TWICE DAILY, (STOP taking lopressor/to prol) 3 02/25/2018 Active clopidogrel (PLAVIX) 75 mg tablet 01/01/2018 Active isosorbide mononitrate (IMDUR) 30 mg 24 hr tablet 02/26/2018 Active lisinopril (PRINIVIL,ZESTRI L) 20 mg tablet 02/19/2018 Act thi raNITIdine (ZANTAC) 300 mg tablet 02/05/2018 Active aspirin 81 mg Take 81 mg by mouth daily. Active multivitamin capsule Take 1 capsule by mouth daily. Active b complex vitamins capsule Take 1 capsule by mouth daily. Active cholecalciferol, vitamin D3, (VITAMIN D3) 1,000 unit capsule Take 1,000 Units by mouth daily. Active insulin regular (HumuLIN R,NovoLIN R) 100 unit/mL injection Inject 20 Units under the skin 3 (three) times a day before meals. Active insulin regular (HumuLIN R,NovoLIN R) 100 unit/mL injection Inject 30 Units under the skin 3 (three) times a day before meals. Active Social History Tobacco Use Types Packs/Day Years Used Date Smoking Tobacco: Former Cigarettes Smokeless Tobacco: Never Tobacco Cessation:Counseling Given: Yes Alcohol Use Standard Drinks/Week Comments No 0 (1 standard drink = 0.6 oz pur e alcohol) [facility] Answer Date Recorded Frequency of Alcohol Consumption Never 03/13/2018 Average Number of Drinks Not on file 018 Frequency of Binge Drinking Not on file 03/01 Childcare Answer Date Recorded Childcare Unknown 09/11/2018 Employment Answer Date Recorded Employment Unknown 09/11/2018 Purpose - Life Answer Date Recorded Purpose and direction in life Unknown Sex and Gender Information Value Date Recorded Sex Assigned at Not on file Legal Sex Male 10:58 AM EST Gender Identity Not on file Sexual Orientation Not on file Last Filed Vital Signs Vital Sign Reading Time Taken Comments Blood Pressure 149/89 03/13/2018 10:37 AM EST Pulse 92 03/13/2018 10:37 AM EST Temperature - - Respiratory Rate 16 03/13/2018 10:37 AM EST Oxygen Saturation - - Inhaled Oxygen Concentration - - Weight 93.2 kg (205 lb 6.4 oz) 03/13/2018 10:37 AM EST Height 170.2 cm (5' 7 ) 03/13/2018 10:37 AM EST Body Mass Index 32.17 03/13/2018 10:37 AM EST Plan of Treatment Health Maintenance Due Date Last Done Comments Depression Screening 1962 Tobacco Screening 1962 Adult BMI Screening 11/07/1969 DTaP,Tdap and Td Vaccines (1 - Tdap) 11/07/1970 Zoster (Shingles) Vaccine (1 of 2) 11/07/2001 Abdominal Aortic Aneurysm (AAA) Screen 11/07/2016 Fall Risk Screening 11/07/2016 Influenza Vaccine 11/30/2024 Medical Devices Not on file Insurance [employer] Care Teams Document Improvement Specialist Relationship Specialty Start Date End Date Harley Goodman DO [facility] [place] [address] PCP - General Internal Medicine 02/14/18
--- OUTSIDE RECORDS SUMMARY | 2024-08-27 07:21 | XMS_ITS | Clinical Summary ---
Author Organization [facility] Address [address] [place] [address] Care Team Providers Care Feed Research Technician Name Role Phone Unavailable Primary Care Provider Unavailabl e Social History Tobacco Use Types Packs/Day Years Used Date Smoking Tobacco: Never Assessed Sex and Gender Information Value Date Recorded Sex Assigned at Not on file Legal Sex Male 10:41 AM EST Gender Identity Not on file Sexual Orientation Not on file Plan of Treatment Not on file
--- OUTSIDE RECORDS SUMMARY | 2024-08-27 07:21 | XMS_ITS | Encounter Summary ---
Author Organization [facility] Address [address] [place] [address] Care Team Providers Care Licensed Chemical Spray Technician Name Role Phone Harley Goodman DO Primary Care Provider [phone] Encounter Details Date Type Department Care Team (Latest Contact Info) Description 08/13/2024 Travel Social History Tobacco Use Types Packs/Day Years Used Date Smoking Tobacco: Former Cigarettes Smokeless Tobacco: Never Alcohol Use Standard Drinks/Week Comments Never 0 (1 standard drink = 0.6 oz pur e alcohol) [facility] Utilities Answer Date Recorded In the past 12 months has th e electric, gas, oil, or water company threatened to shut off services in your [...] any time in the past 12 m [facility], were you homeless or living in a correction (including now)? No 08/13/2024 Hunger Vital Sign [...] AM EST documented as of this encounter Plan of Treatment Upcoming Encounters Date Type Department Care Team (Late st Contact Info) Description 08/28/2024 8:30 AM EDT Office Visit [facility] Urology [address] [place] [address] Last Mcmanus MD [address] [place] [address] [address] [place] [phone] 10/13/2024 9:00 AM EDT Office Visit [facility] at [facility] [address] [place] [address] Pinky Bishop MD [address] [facility] [address] [facility] [place] [address] documented as of this encounter Visit Diagnoses Not on filedocumented in this encounter Care Teams Licensed Chemical Spray Technician Relationship Specialty Start Date End Date Harley Goodman DO [address] [facility] [place] [address] PCP - General 03/02/22 documented as of this encounter
--- OUTSIDE RECORDS SUMMARY | 2024-08-27 07:21 | XMS_ITS | Encounter Summary ---
Author Organization [facility] Address [address] [place] [address] Care Team Providers Care Compensator Name Role Phone Harley Goodman DO Primary Care Provider [phone] Encounter Details Date Type Department Care Team (Late st Contact Info) Description 07/16/2024 Orders Only [facility] [address] [place] [address] Mannie Armijo MD [address] [place] [address] Social History Tobacco Use Types Packs/Day Years Used Date Smoking Tobacco: Former Cigarettes Smokeless Tobacco: Never Alcohol Use Standard Drinks/Week Comments Never 0 (1 standard drink = 0.6 oz pur e alcohol) [facility] Utilities Answer Date Recorded In the past 12 months has e [employer], gas, oil, or water impok threatened to shut off services in your home? No 02/13/2024 Humiliation, Afraid, Rape, and Kick questionnair e Answer Date Recorded Within the last year, have y ou been afraid of your partner or ex-partner? No 02/13/2024 Emotionally Abused Not on file 02/13/2024 Physically Abused Not on file 02/13/2024 Sexually Abused Not on file 02/13/2024 Overall Financial Resource Strain (CARDIA) Answe r Date Recorded How hard is it for you to pa y for the very basics like food, housing, medical care, and heating? Not very hard 02/13/2024 Transportation Answer Date Recorded In the past 12 months, has l ack of transportation kept you from medical appointments or from getting medications? No 02/13/2024 Lack of Transportation (Non-Medical) Not on file 02/13/2024 Housing Stability Vital Sign Answer Phani e Recorded In the last 12 months, was t here a time when you were not able to pay the mortgage or rent on time? No 02/13/2024 Number of Times Moved in the Last Year Not on fi le 02/13/2024 At any time in the past 12 m [facility], were you homeless or living in a correction (including now)? No 02/13/2024 Hunger Vital Sign Answer Date Recorded Within the past 12 months, y ou worried that your food would run out before you got the money to buy more. Never true 02/13/20 24 Ran Out of Food in the Last Year Not on file 02/13/2024 Sex and Gender Information Value Date Recorded Sex Assigned at Male 02/12/2023 9:24 AM EST Gender Identity Male 02/12/2023 9:24 AM EST Sexual Orientation Heterosexual or Straight 01/30 9:24 AM EST documented as of this encounter Plan of Treatment Upcoming Encounters Date Type Department Care Team (Late st Contact Info) Description 08/28/2024 8:30 AM EDT Office Visit [facility] Urology [address] [place] [address] Last Mcmanus MD [facility] [facility] [address] [place] [address] 10/13/2024 9:00 AM EDT Office Visit [facility] [address] [place] [address] Pinky Bishop MD [address] [facility] [address] [facility] [place] [address] documented as of this encounter Procedures Procedure Name Priority Date/Time Associated Diagnosis Comments CARDIAC DEVICE CHECK - REMOTE - ICD Routine 07/16/2024 12:00 AM EDT documented in this encounter Results * Cardiac device check - Remote ICD (07/16/2024 12:00 AM EDT) Anatomical Region Laterality Modality Other 07/16/2024 Mannie Armijo MD CV IMPLANTABLE CARDI AC DEVICE PROCEDURES documented in this encounter Visit Diagnoses Not on filedocumented in this encounter Care Teams Compensator Relationship Specialty Start Date End Date Harley Goodman DO [address] [place] [address] PCP - General 03/02/22 documented as of this encounter
--- OUTSIDE RECORDS SUMMARY | 2024-08-27 07:21 | XMS_ITS | Clinical Summary ---
Author Organization [facility] Address [address] [place] [address] Care Team Providers Care Qc Lab Technician Name Role Phone Harley Goodman DO Primary Care Provider [phone] Allergies No known active allergies Medications Medication Sig Dispensed Refills Start Date End Date Status ALPRAZolam (Xanax) 0.5 mg tablet Take 1 tablet by mouth in the morning, afternoon, and at bedtime. Active aspirin 81 mg chewable tablet Chew 1 tablet every day by oral route. Active clopidogrel (Plavix) 75 mg tablet Take 1 tablet by mouth in the morning. 01/01/2018 Active empagliflozin (Jardiance) 10 mg Take 1 tablet every day by oral route. 09/07/2021 Active insulin detemir (Levemir) 100 unit/mL injection Inject 5 Units under the skin two times daily. Active pantoprazole (ProtoNix) 40 mg EC tablet TAKE 1 TABLET BY MOUTH DAILY ON AN EMPTY STOMACH FOLLOWED BY BREAKFAST 30 MINUTES AFTER 07/17/2022 Active docusate sodium (Colace) 100 mg capsule Take 100 mg by mouth in the morning. Active isosorbide mononitrate ER (Imdur) 60 mg 24 hr tabletIndications :Acute on chronic systolic heart failure (CMS/HCC),NSTEMI (non-ST elevated myocardial infarction) (CMS/HCC) Take 1 tablet (60 mg) by mouth 2 times daily. 180 tablet 3 04/22/2023 Active rosuvastatin (Crestor) 40 mg tabletIndications :NSTEMI (non-ST elevated myocardial infarction) (CMS/HCC) TAKE 1 TABLET BY MOUTH AT BEDTIME 90 tablet 3 01/12/2024 Active spironolactone (Aldactone) 25 mg tabletIndications :NSTEMI (non-ST elevated myocardial infarction) (CMS/HCC) Take 1 tablet (25 mg) by mouth in the morning. 90 tablet 3 01/16/2024 5 Active nitroglycerin (Nitrostat) 0.4 mg SL tabletIndications :Chest pain, unspecified type PLACE 1 TABLET UNDER TONGUE EVERY 5 MINS, UP TO 3 DOSES NEEDED FOR CHEST PAIN 90 tablet 2 01/31/2024 Active cholecalciferol (Vitamin D3) 25 MCG (1000 units) tablet Take 1,000 Units by mouth in the morning. Active thiamine (Vitamin B-1) 100 mg tablet Take 100 mg by mouth every other day. Active insulin aspart (NovoLOG) 100 unit/mL injection vial Inject 10 Units under the skin with breakfast, with lunch, and with evening meal. Sliding scale Active metoprolol succinate XL (Toprol-XL) 50 mg 24 hr tabletIndications :NSTEMI (non-ST elevated myocardial infarction) (CMS/HCC) Take 3 tablets (150 mg) by mouth in the morning for 97 doses. Do not crush or chew. 291 tablet 02/15/2024 Active ranolazine (Ranexa) 500 mg 12 hr tabletIndications :NSTEMI (non-ST elevated myocardial infarction) (CMS/HCC) Take 1 tablet (500 mg) by mouth two times daily. Do not crush, chew, or split. 180 tablet 3 03/19/2024 5 Active thiamine (Vitamin B-1) 250 mg tablet Take 250 mg by mouth every other day. Active amLODIPine (Norvasc) 5 mg tabletIndications :Hypertension, unspecified type Take 1 tablet (5 mg) by mouth in the morning for 30 doses. 30 tablet 08/14/2024 5 Active multivitamin capsule Take 1 capsule by mouth in the morning. 5 Discontinued loratadine (Claritin) 10 mg tablet Take 10 mg by mouth in the morning. 5 Discontinued lisinopril 2.5 mg tablet Take 2.5 mg by mouth two times daily. 5 Discontinued isosorbide mononitrate ER (Imdur) 60 mg 24 hr tablet Take 60 mg by mouth two times daily. Do not crush or chew. Takes one in am and one at 6pm evening 5 Discontinued metoprolol succinate XL (Toprol-XL) 50 mg 24 hr tablet Take 150 mg by mouth in the morning. Do not crush or chew. 5 Discontinued insulin degludec (Tresiba FlexTouch U-100) 100 unit/mL (3 mL) injection Inject 14 Units under the skin in the morning. 5 Discontinued Active Problems Problem Noted Date Diagnosed Date Chest pain 08/13/2024 Assessment & Plan (08/13/2024 1:28 PM EDT): Chest pain-free, cycle troponin telemetry continue statin aspirin nitrates beta-jason watch for hypotension and bradycardia cardiology to see patient Gross hematuria 08/13/2024 Assessment & Plan (08/13/2024 1:28 PM EDT): On antiplatelet agent watch for hematuria and follow Bladder cancer 08/13/2024 Assessment & Plan (08/13/2024 1:28 PM EDT): Recent cystoscopy follows urology CODE STATUS full code PVD (peripheral vascular disease) 02/13/2024 Carotid stenosis, asymptomatic 02/13/2024 Angina at rest 09/06/2023 Assessment & Plan (08/13/2024 1:28 PM EDT): As above Dietary counseling and surveillance 09/06/2023 CHRYSTAL (generalized anxiety disorder) 09/06/2023 Ground glass opacity present on imaging of lung 09/06/2023 Hypoxia 09/06/2023 Pulmonary nodule 09/06/2023 Secondary hyperparathyroidism 09/06/2023 Type 2 diabetes mellitus with hyperglycemia 09/2023 Acute on chronic systolic heart failure, NYHA cl ass 3 01/28/2023 Assessment & Plan (01/28/2023 2:54 PM EDT): Dr Jacobs is planning upgrade to BI-V ICD on as outpt HFrEF (heart failure with reduced ejection fract ion) 01/28/2023 Assessment & Plan (08/13/2024 1:28 PM EDT): Decongestive breath/guideline directed medical therapy limited because of renal function watch creatinine electrolytes especially potassium intake and output NSTEMI (non-ST elevated myocardial infarction) 1 Age-related nuclear cataract of both eyes 202201/17/2023 Blepharitis of upper and lower eyelids of both e yes 10/12/2022 01/17/2023 Dry eyes 10/12/2022 01/17/2023 Mild nonproliferative diabet ic retinopathy of both eyes without macular edema associated with type 1 diabetes mellitus 10/12/2022 01/17/2023 AV block, 3rd degree 03/21/2022 Overview (03/21/2022): Added automatically from request for surgery [id number] Gastroesophageal reflux disease 03/02/2022 Increased immunoglobulin 03/02/2022 Irritable bowel syndrome 03/02/2022 Mixed hyperlipidemia 03/02/2022 Nausea 03/02/2022 Overweight with body mass index (BMI) 25.0-29.9 03/02/2022 Right lower quadrant abdominal pain 03/02/2022 Spondylosis of lumbar spine 03/02/2022 Chronic kidney disease 03/02/2022 Assessment & Plan (08/13/2024 1:28 PM EDT): Avoid hypovolemia and nephrotoxic meds hold lisinopril since patient on Aldactone watch potassium electrolyte creatinine renal function consider nephrology consult Stenosis of abdominal aorta 03/02/2022 Moderate nonproliferative diabetic retinopathy o f left eye 12/07/2020 Severe nonproliferative diab etic retinopathy associated with type 2 diabetes mellitus 12/07/2020 History of coronary artery bypass surgery 2019 Monoclonal gammopathy 07/28/2018 Type 2 diabetes mellitus wit hout complication, with long-term current use of insulin 06/03/2012 Assessment & Plan (08/13/2024 1:28 PM EDT): Insulin blood sugar check diet Coronary artery disease invo lving flandreau coronary artery of flandreau heart 09/19/2011 Assessment & Plan (08/13/2024 1:28 PM EDT): As above Type 1 diabetes mellitus 09/19/2011 Essential hypertension 09/19/2011 Encounters Date Type Department Care Team Description 08/20/2024 9:45 AM EDT Office Visit [facility] Heart at [address] [place] [address] Pinky Bishop MD Chronic systolic heart failure (CMS/HCC) (Primary Dx); 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; Primary hypertension; Status post implantation of automatic cardioverter/defibrill ator (AICD); Palpitations 08/14/2024 Orders Only [facility] [address] [place] [address] Kevin Jacobs MD 08/13/2024 11:14 AM EDT - 08/14/2024 6:44 PM EDT Hospital Encounter [facility] [address] [place] [address] Tomas Covington MD Saad, Hani, MD Chest pain (Primary Dx); Hypertension, unspecified type Discharge Disposition: Home or Self Care () 08/13/2024 Travel 08/04/2024 - 08/04/2024 11:59 PM EDT Hospital Encounter [facility] Radiology External Films [address] [place] [address] Bladder tumor Discharge Disposition: Home or Self Care () 08/04/2024 Orders Only [facility] Urology [address] [place] [address] Last Mcmanus MD Bladder tumor 07/16/2024 9:15 AM EDT Ancillary Procedure [facility] [address] [place] [address] Pre-operative cardiovascular examination, ICD in place 07/16/2024 Orders Only [facility] [address] [place] [address] Mannie Armijo MD 06/16/2024 7:10 PM EDT Ancillary Procedure [facility] [address] [place] [address] Pre-operative cardiovascular examination, ICD in place from Last 3 Months Immunizations Name Administration Dates Next Due Influenza Whole 01/19/2008 Influenza, High Dose Seasonal, Preservative Free 01/16/2017 Influenza, Seasonal, Quadrivalent, Adjuvanted Influenza, injectable, quadrivalent, preservativ e free 11/30/2016 Influenza, seasonal, injectable 01/23/2012,12/13 Influenza, trivalent, adjuvanted 01/17/2018 Novel [id number], preservative-free 01/27 Pneumococcal Conjugate PCV 13 11/14/2016 Pneumococcal Polysaccharide PPV23 01/17/2018,05/2016 Family History Medical History Relation Name Comments malignant neoplastic disease Brother malignant neoplastic disease Father Heart attack Maternal Grandfather Heart attack Maternal Grandmother Heart attack Mother Relation Name Status Comments Brother Father Maternal Grandfather Maternal Grandmother Mother Social History Tobacco Use Types Packs/Day Years Used Date Smoking Tobacco: Former Cigarettes Smokeless Tobacco: Never Tobacco Cessation:Counseling Given: Not Answered Alcohol Use Standard Drinks/Week Comments Never 0 (1 standard drink = 0.6 oz pur e alcohol) [facility] Utilities Answer Date Recorded In the past 12 months has th e [employer], gas, oil, or water [employer] threatened to shut off services in your [...] any time in the past 12 m ont, were you homeless or living in a prison (including now)? No 08/13/2024 Hunger Vital Sign [...] Heterosexual or Straight 01/30 9:24 AM EST Last Filed Vital Signs Vital Sign Reading Time Taken Comments Blood Pressure 122/78 08/20/2024 9:43 AM EDT Pulse 80 08/20/2024 9:43 AM EDT Temperature 36.2 C (97.2 F) 08/14/2024 4:30 PM EDT Respiratory Rate 16 08/14/2024 6:20 PM EDT Oxygen Saturation 97% 08/20/2024 9:43 AM EDT Inhaled Oxygen Concentration - - Weight 82.6 kg (182 lb) 08/20/2024 9:43 AM EDT Height 170.2 cm (5' 7 ) 08/20/2024 9:43 AM EDT Body Mass Index 28.51 08/20/2024 9:43 AM EDT Plan of Treatment Upcoming Encounters Date Type Department Care Team (Late st Contact Info) Description 08/28/2024 8:30 AM EDT Office Visit [facility] Urology [address] [place] [address] Last Mcmanus MD [address] [place] [address] Dr Fel[address] [place] [address] 10/13/2024 9:00 AM EDT Office Visit [facility] [address] [place] [address] Pinky Bishop MD [address] [place] [address] Health Maintenance Due Date Last Done Comments CT Colonography 1950 Diabetes: Hemoglobin A1C 1950 FIT-DNA 1950 FOBT 1950 Medicare Annual Wellness (AWV) 1950 Sigmoidoscopy 1950 Diabetes: Retinopathy Screening 11/07/1961 Depression Screening 1963 Adult Tetanus 11/07/1973 Zoster Vaccines (1 of 2) 11/07/2001 FIT 08/15/2021 08/15/2020 COVID-19 Vaccine ( season) 2023 02/21/2021, 06/21/2020, 05/30/2020 Fall Risk Screening 08/14/2025 08/14/2024 Colonoscopy 07/11/2031 07/10/2021 Colorectal Cancer Screening 07/11/2031 Pneumococcal Vaccine: 65+ Years Completed 01/17/2018, 11/14/2016, 04/02/2016 Influenza Vaccine Completed 12/12/2023, , 01/17/2018, Additional history exists HIB Vaccines Aged Out No longer eligi ble based on patient's age to complete this topic HPV Vaccines Aged Out No longer eligi ble based on patient's age to complete this topic IPV Vaccines Aged Out No longer eligi ble based on patient's age to complete this topic Meningococcal B Vaccine Aged Out No l onger eligible based on patient's age to complete this topic Meningococcal Vaccine Aged Out No aldo ginny eligible based on patient's age to complete this topic Rotavirus Vaccines Aged Out No longer eligible based on patient's age to complete this topic Medical Devices Implanted Type Area Cylinder Valve Repairer Device Identifier Shelf Expiration Date Model / Serial / Lot Vigilant X4 Maintenance Chief-D Is-1/Df4/Is4 Implanted:Qty: 1 on 02/12/2023 by Kevin Jacobs MD at [facility]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 ICD [employer] [id number] 09/09/2024 [id number] / [id number] / Stent,Synergy Mr 4.00 X 28 - [id number] Implanted:Qty: 1 on 09/27/2023 by Petar Foreman MD at [facility] Drug Eluting Stent [employer] [id number] 04/09/2024 [id number] / / [id number] Ingevity+ Is-1 Bi Positive Fix Ra/Rv 52cm Implanted:Qty: 1 on 03/21/2022 by Kevin Jacobs MD at [facility] Lead [employer] [id number] 03/09/2024 7841 / [id number] / Ingevity+ Is-1 Bi Positive Fix Ra/Rv 45cm Implanted:Qty: 1 on 03/21/2022 by Kevin Jacobs MD at [facility] Lead [employer] [id number] 01/02/2024 7840 / [id number] / Cherokee 4-Front S Active Fix Single Coil 59cm Implanted:Qty: 1 on 02/12/2023 by Kevin Jacobs MD at [facility] Lead [employer] [id number] 01/06/2025 0672 / [id number] / Lead,Acuity X4,Spiral L - [id number] - [id number] Implanted:Qty: 1 on 02/12/2023 by Kevin Jacobs MD at [facility] Lead [employer] [id number] 01/13/2025 4677 / [id number] / Pacer,Accolade ,Mri Dr Castelan - [id number] - [id number] Implanted:Qty: 1 on 03/21/2022 by Kevin Jacobs MD at [facility] Pacemaker [employer] 02/05/2024 [id number] / [id number] / [id number] Description:Mode: DDD RYTHMIQ: OFF LRL / MTR : 60 ppm / 130 ppm PAV Delay: 80ms - 180ms DANI Delay: 65ms - 150ms AV Search + : Off PVARP: 260ms - 320ms Sensitivity Output Pace/Sense RA 0.25 mV 3.5V @ 0.4ms Bi RV 0.6 mV 3.5V @ 0.4ms Bi . Sensor: RightRate Pacing With MV - On Motion-Based Pacing With Accel - On Sensing Method: AGC VT EGM Storage: On - 160 bpm ATR Mode Switch: On - 170 bpm Atrial Flutter Response: On VRR: Off Rate Smoothing: Off Rate Hysteresis: Off Sudden Ryan Response: Off Procedures Procedure Name Priority Date/Time Associated Diagnosis Comments POCT GLUCOSE METER UNSOLICITED RESULTS Routine 08/14/2024 3:34 PM EDT POCT GLUCOSE METER UNSOLICITED RESULTS Routine 08/14/2024 12:05 PM EDT LEXISCAN STRESS MYOCARDIAL PERFUSION IMAGING Routine 08/14/2024 11:03 AM EDT COMPLETE ECHO (TTE) W/ IMAGING AGENT Routine 08/14/2024 8:59 AM EDT POCT GLUCOSE METER UNSOLICITED RESULTS Routine 08/14/2024 7:38 AM EDT LAVENDER TOP Routine 08/14/2024 7:14 AM EDT EXTRA TUBES Routine 08/14/2024 7:14 AM EDT HIGH SENSITIVITY TROPONIN I STAT 08/14/2024 7:14 AM EDT CARDIAC DEVICE CHECK - REMOTE - ICD Routine 08/14/2024 12:00 AM EDT POCT GLUCOSE METER UNSOLICITED RESULTS Routine 08/13/2024 8:03 PM EDT POCT GLUCOSE METER UNSOLICITED RESULTS Routine 08/13/2024 5:59 PM EDT ECG 12-LEAD Routine 08/13/2024 5:41 PM EDT POCT GLUCOSE METER UNSOLICITED RESULTS Routine 08/13/2024 3:36 PM EDT HIGH SENSITIVITY TROPONIN I Add-On 08/13/2024 2:21 PM EDT CBC WITH AUTO DIFFERENTIAL Routine 08/13/2024 2:21 PM EDT MAGNESIUM Routine 08/13/2024 2:21 PM EDT PHOSPHORUS Routine 08/13/2024 2:21 PM EDT COMPREHENSIVE METABOLIC PANEL Routine 08/13/2024 2:21 PM EDT CBC AND DIFFERENTIAL Routine 08/13/2024 2:21 PM EDT XR TRANSFER OF OUTSIDE FILMS Routine 08/04/2024 12:00 AM EDT Bladder tumor CARDIAC DEVICE CHECK CHECK - REMOTE Routine 07/17/2024 10:15 AM EDT Pre-operative cardiovascular examination, ICD in place CARDIAC DEVICE CHECK - REMOTE - ICD Routine 07/16/2024 12:00 AM EDT CARDIAC DEVICE CHECK - REMOTE - ICD Routine 06/22/2024 10:52 AM EDT Pre-operative cardiovascular examination, ICD in place CARDIAC DEVICE CHECK - IN CLINIC - ICD BIVENTRICULAR CHAMBER W/ PROG Routine 06/03/2024 11:12 AM EST Encounter for implantable defibrillator reprogramming or check from Last 3 Months Results * (ABNORMAL) POCT glucose meter (08/14/2024 3:34 PM EDT) Only the most recent of6 resultswithin the time period is included. Glucose POC 155(H) 70 - 105 mg/dL 08/14/2024 3:[address] [facility] ([facility] Comment:dcundic Blood Capillary blood specimen / Unknown 08/14/2024 3:34 PM EDT 08/14/2024 3:47 PM EDT Narrative [facility] ([facility]) - 08/14/2024 3:47 PM EDT Waived Testing in the ED is performed under the ED CLIA certificate #[id number]. Devante Leon MD LAB BLOOD ORDERABLES [facility] ([facility]) [address] [place] [address] * Lexiscan Stress Myocardial Perfusion Imaging (08/14/2024 11:03 AM EDT) Anatomical Region Laterality Modality Other 08/14/2024 10:4 3 AM EDT Narrative 08/14/2024 9:52 AM EDT 1 1 [facility] Heart Station [address] [place] [address] [phone] (fax) Lexiscan Stress Myocardial Perfusion Imaging- [facility] Name: LANI LIZAMA Study Date: 08/14/2024 10:43 AM B/P: / HR: Date of : 1950 Location: [facility] Height: 67 in. Age: 73 year(s) [...] Lexiscan Exercise Time: 03:00 Device: Treadmill HR Addison Used: 12.00 % HR Recovery: -1 bpm Frequent VE: 0 VE/min Resolution: No Symptoms Max HR: 93 bpm Target HR: 125 bpm Achieved: No Resting HR: 82 bpm Max Predicted HR: 148 bpm Achv. of Max Predicted: 62 % BP Max: 154/89 BP at Rest: 147/72 Max RPP: 30453 mmHg*bpm Max ST Lead: V6 Max ST Phase: Postinfsn Stage No. in Phase: [address] Stage: 3-[address] Amplitude: -0.[address] Glascock: -0.470 mV/s Max ST Time in Phase: 03:30 Artifact Count: 0 Chest Pain: no Pharmalogical Stress Examination Protocol Stage Name Time in Stage Load Heart Rate BP Dosage ST Level Cardiac Arrhy Cardiac Symp. Other Pain Changes Symptom Supine 10:26 1.00 mets 82 bpm 147/72 -0.750 mm Infusion 30 seconds 00:30 1.00 mets 82 bpm 147/72 -0.650 mm [id number] 00:30 1.00 mets 87 bpm 147/72 -0.650 [...] 4 - Aneurysmal Procedure Staff Reading Group: [facility] Referring Physician: HARLEY GOODMAN Stress Compatibility Test Engineer: Angely Dalal Time Study Analyst: Shira Zhou Ordering Physician: TATIANNA HAYWARD Advanced Practitioner: Bozena Santacruz NP Nurse: Juli Salazar Resting Perfusion Procedure Note Yuridia Velez MD - 08/14/2024 1 1 [facility] Heart Station [address] [place] [address] [phone] (fax) Lexiscan Stress Myocardial Perfusion Imaging- [facility] Name: LANI LIZAMA Study Date: 08/14/2024 10:43 AM B/P: / HR: Date of : 1950 Location: [facility] Height: 67 in. Age: 73 year(s) [...] Lexiscan Exercise Time: 03:00 Device: Treadmill HR Addison Used: 12.00 % HR Recovery: -1 bpm Frequent VE: 0 VE/min Resolution: No Symptoms Max HR: 93 bpm Target HR: 125 bpm Achieved: No Resting HR: 82 bpm Max Predicted HR: 148 bpm Achv. of Max Predicted: 62 % BP Max: 154/89 BP at Rest: 147/72 Max RPP: 12701 mmHg*bpm Max ST Lead: V6 Max ST Phase: Postinfsn Stage No. in Phase: [address] Stage: 3-[address] Amplitude: -0.[address] Glascock: -0.470 mV/s Max ST Time in Phase: 03:30 Artifact Count: 0 Chest Pain: no Pharmalogical Stress Examination Protocol Stage Name Time in Stage Load Heart Rate BP Dosage ST Level Cardiac Arrhy Cardiac Symp. Other Pain Changes Symptom Supine 10:26 1.00 mets 82 bpm 147/72 -0.750 mm Infusion 30 seconds 00:30 1.00 mets 82 bpm 147/72 -0.650 mm [id number] 00:30 1.00 mets 87 bpm 147/72 -0.650 [...] 4 - Aneurysmal Procedure Staff Reading Group: [facility] Referring Physician: HARLEY GOODMAN Stress Compatibility Test Engineer: Angely Dalal Time Study Analyst: Shira Zhou Ordering Physician: TATIANNA HAYWARD Advanced Practitioner: Bozena Santacruz NP Nurse: Juli Salazar Resting Perfusion Tatianna [place] MD CV STRESS PROCEDUR ES * COMPLETE ECHO (TTE) W/ IMAGING AGENT (08/14/2024 8:59 AM EDT) Anatomical Region Laterality Modality Other 08/14/2024 8:33 AM EDT Narrative 08/14/2024 9:44 AM EDT 1 1 [facility] Heart Station [address] [id number] [phone] (fax) Echocardiogram-[facility] Name: LANI LIZAMA Study Date: 08/14/2024 08:33 AM B/P: 118 mmHg/75 mmHg HR: 75 bpm Date of : 1950 Location: [facility] Height: 67 in. Age: 73 year(s) [...] No pericardial effusion. Procedure Staff Reading Group: [facility] Sales And Marketing Agent: MASTER Ortega, RDCS Ordering Physician: TATIANNA HAYWARD Wall Motion Scores -1 - hyperkinesia, 0 - not evaluated, 1 - normal, 2 - hypokinesia, 3 - akinesia, 4 - dyskinesia Procedure Note Fabricio Galindo MD - 08/14/2024 1 1 [facility] Heart Station [address] [place] [address] [phone] (fax) Echocardiogram-[facility] Name: LANI LIZAMA Study Date: 08/14/2024 08:33 AM B/P: 118 mmHg/75 mmHg HR: 75 bpm Date of : 1950 Location: [facility] Height: 67 in. Age: 73 year(s) [...] No pericardial effusion. Procedure Staff Reading Group: [facility] Sales And Marketing Agent: MASTER Ortega, RDCS Ordering Physician: TATIANNA HAYWARD Wall Motion Scores -1 - hyperkinesia, 0 - not evaluated, 1 - normal, 2 - hypokinesia, 3 - akinesia, 4 - dyskinesia Tatianna Hayward MD CV ECHO PROCEDURES * (ABNORMAL) High Sensitivity Troponin I (08/14/2024 7:14 AM EDT) Only the most recent of2 resultswithin the time period is included. High Sensitivity Troponin I 160(HH) <20 ng/L 08/14/2024 8:12 AM EDT [facility] Blood Venous blood specimen / Unknown Venipuncture / Unknown 08/14/2024 7:14 AM EDT 08/14/2024 7:25 AM EDT Devante Leon MD LAB BLOOD ORDERABLES [facility] ([facility]) [address] [place] [address] * Lavender Top (08/14/2024 7:14 AM EDT) Pathologist [facility] Extra Tube Hold for add-ons. 08/14/2024 9:[address] [facility] ([facility]) Comment:Auto resulted. Blood Venous blood specimen / Unknown 08/14/2024 7:14 AM EDT 08/14/2024 7:25 AM EDT Devante Leon MD LAB BLOOD ORDERABLES Performing Organization Address City/[facility]/ZIP Co de Phone Number [facility] ([facility]) [address] [place] [id number] * Cardiac device check - Remote ICD (08/14/2024 12:00 AM EDT) Only the most recent of2 resultswithin the time period is included. Anatomical Region Laterality Modality Other 08/14/2024 Kevin Jacobs MD CV IMPLANTABLE CARDI AC DEVICE PROCEDURES * ECG 12 lead (08/13/2024 5:41 PM EDT) Ventricular Rate 86 BPM GE MUSE Atrial Rate 86 BPM GE MUSE MS Interval 154 ms GE MUSE QRS DURATION 144 ms GE MUSE QT Interval 424 ms GE MUSE QTC CALCULATION(BAZE TT) 507 ms GE MUSE P [place] 37 degrees GE MUSE R-[place] -56 degrees GE MUSE T Wave [place] 114 degrees GE MUSE 08/13/2024 5:25 PM [...] MD ECG ORDERABLES GE MUSE * (ABNORMAL) CBC auto differential (08/13/2024 2:21 PM EDT) Auto WBC 7.62 4.00 - 10.60 10*3/uL 08/13/2024 3:[address] [facility] ([facility]) RBC 4.47 4.20 - 5.70 10*6/uL 08/13/2024 3:[address] [facility] ([facility]) Hemoglobin 13.1 13.0 - 17.0 g/dL 08/13/2024 3:[address] [facility] ([facility]) Hematocrit 39.8 39.0 - 50.0 % 08/13/2024 3:[address] [facility] ([facility]) MCV 89.0 82.0 - 98.0 fL 08/13/2024 3:[address] [facility] ([facility]) MCH 29.3 27.0 - 33.0 pg 08/13/2024 3:[address] [facility] ([facility]) MCHC 32.9 32.0 - 35.0 g/dL 08/13/2024 3:[address] [facility] [facility] RDW 14.6 11.5 - 15.0 % 08/13/2024 3:[address] [facility] ([facility]) Neutrophils % 69.8 40.0 - 72.0 % 08/13/2024 3:[address] [facility] ([facility]) Lymphocytes % 19.8(L) 20.0 - 45.0 % 08/13/2024 3:[address] [facility] ([facility]) Monocytes % 7.5 5.0 - 12.0 % 08/13/2024 3:[address] [facility] ([facility]) Eosinophils % 1.8 0.0 - 6.0 % 08/13/2024 3:[address] [facility] ([facility]) Basophils % 0.7 0.0 - 1.0 % 08/13/2024 3:[address] [facility] ([facility]) Neutrophils Absolute 5.32 1.60 - 7.60 10*3/uL 08/13/2024 3:[address] [facility] ([facility]) Lymphocytes Absolute 1.51 1.20 - 4.00 10*3/uL 08/13/2024 3:[address] [facility] ([facility]) Monocytes Absolute 0.57 0.10 - 1.00 10*3/uL 08/13/2024 3:[address] [facility] ([facility]) Eosinophils Absolute 0.14 0.00 - 0.50 10*3/uL 08/13/2024 3:[address] [facility] ([facility]) Basophils Absolute 0.05 0.00 - 0.20 10*3/uL 08/13/2024 3:[address] [facility] ([facility]) Platelets 201 150 - 400 10*3/uL 08/13/2024 3:[address] [facility] ([facility]) nRBC % 0.0 0 % 08/13/2024 3:[address] [facility] ([facility]) Immature Granulocytes % 0.4 0.0 - 1.0 % 08/13/2024 3:[address] [facility] ([facility]) Immature Granulocytes Absolute 0.03 0.00 - 0.20 10*3/uL 08/13/2024 3:00 PM T [facility]) Blood Venous blood specimen / Unknown Venipuncture / Unknown 08/13/2024 2:21 PM EDT 08/13/2024 2:51 PM EDT Graeme Sorensen MD LAB BLOOD ORDERABLES Performing Organization Address City/[facility]/ZIP Co de Phone Number [facility] ([facility]) [address] [place] [address] * Phosphorus (08/13/2024 2:21 PM EDT) Phosphorus 3.6 2.5 - 5.0 mg/dL 08/13/2024 3:[address] [facility] ([facility]) Blood Venous blood specimen / Unknown Venipuncture / Unknown 08/13/2024 2:21 PM EDT 08/13/2024 2:50 PM EDT Graeme Sorensen MD LAB BLOOD ORDERABLES Performing Organization Address City/[facility]/ZIP Co de Phone Number [facility] ([facility]) [address], [place] [phone] * Magnesium (08/13/2024 2:21 PM EDT) Pathologist [facility] Magnesium 1.9 1.9 - 2.7 mg/dL 08/13/2024 3:[address] [facility] ([facility]) Blood Venous blood specimen / Unknown Venipuncture / Unknown 08/13/2024 2:21 PM EDT 08/13/2024 2:50 PM EDT Graeme Sorensen MD LAB BLOOD ORDERABLES Performing Organization Address City/[facility]/ZIP Co de Phone Number [facility] ([facility]) [address] [place] [address] * (ABNORMAL) Comprehensive metabolic panel (08/13/2024 2:21 PM EDT) Sodium 137 136 - 145 mmol/L 08/13/2024 3:[address] [facility] ([facility]) Potassium 4.7 3.5 - 5.1 mmol/L 08/13/2024 3:[address] [facility] ([facility]) Chloride 108(H) 98 - 107 mmol/L 08/13/2024 3:[address] [facility] ([facility]) CO2 21 21 - 31 mmol/L 08/13/2024 3:[address] [facility] ([facility]) Anion Gap 13 7 - 20 mmol/L 08/13/2024 3:[address] [facility] ([facility]) BUN 26(H) 7 - 25 mg/dL 08/13/2024 3:[address] [facility] ([facility]) Creatinine 1.63(H) 0.70 - 1.30 mg/dL 08/13/2024 3:[address] [facility] ([facility]) BUN/Creatinine Ratio 16.0 07/30 3:[address] [facility] ([facility]) Glucose 165(H) 70 - 100 mg/dL 08/13/2024 3:[address] [facility] ([facility]) Calcium 9.1 8.6 - 10.3 mg/dL 08/13/2024 3:[address] [facility] ([facility]) AST 27 13 - 39 U/L 08/13/2024 3:[address] [facility] ([facility]) ALT (SGPT) 15 7 - 52 U/L 08/13/2024 3:[address] [facility] ([facility]) Alkaline Phosphatase 90 34 - 104 U/L 08/13/2024 3:18 PM [facility] ([facility]) Total Protein 7.2 6.0 - 8.3 g/dL 08/13/2024 3:18 PM [facility] ([facility]) Albumin 4.3 3.5 - 5.7 g/dL 08/13/2024 3:18 PM [facility] ([facility]) Total Bilirubin 0.7 0.3 - 1.0 mg/dL 08/13/2024 3:[address] [facility] ([facility]) eGFR 44.5(L) >60.0 mL/min/1. 73m*2 08/13/2024 3:[address] [facility] ([facility]) Comment:[facility] s estimated glomerular filtration rate (eGFR) will [...] EDT Graeme Sorensen MD LAB BLOOD ORDERABLES [facility] ([facility]) [address] [place] [address] * XR transfer of outside films (08/04/2024 12:00 AM EDT) Narrative IMAGING - 08/04/2024 10:24 AM EDT This order has been auto-finalized and does not contain a result. Last Mcmanus MD IMG XR PROCEDURES Performing Organization Address City/[facility]/ZIP Co de Phone Number IMAGING * CARDIAC DEVICE CHECK - REMOTE - ICD (07/17/2024 10:15 AM EDT) Only the most recent of2 resultswithin the time period is included. Mannie Armijo MD CV IMPLANTABLE CARDI AC DEVICE PROCEDURES Performing Organization Address City/[facility]/ZIP Co de Phone Number CPACS * CARDIAC DEVICE CHECK - IN CLINIC - ICD BIVENTRICULAR CHAMBER W/ PROG (06/03/2024 11:12 AM EST) Anatomical Region Laterality Modality Other Narrative 06/03/2024 11:36 PM EST By using the attestations below, the signing clinician agrees that I have read and verify that the documentation has been personally reviewed by me and ensure that the documentation accurately reflects the encounter. Routine EP device follow up as per schedule. Please see attached note Kevin Jacobs MD CV IMPLANTABLE CARDI AC DEVICE PROCEDURES from Last 3 Months Advance Directives * Full Code (Latest Code Status on File) Date Activated Date Inactivated Comments 08/13/2024 1:16 PM 08/14/2024 8:45 PM * Full Code Date Activated Date Inactivated Comments 02/13/2024 3:39 AM 02/14/2024 2:12 PM * Full Code Date Activated Date Inactivated Comments 09/26/2023 5:13 PM 09/28/2023 2:56 PM * Full Code Date Activated Date Inactivated Comments 02/12/2023 3:19 PM 02/12/2023 7:29 PM * Full Code Date Activated Date Inactivated Comments 01/25/2023 12:52 PM 01/28/2023 8:05 PM Care Teams Qc Lab Technician Relationship Specialty Start Date End Date Harley Goodman DO [address] [facility] [place] [id number] PCP - General 03/02/22
--- OUTSIDE RECORDS SUMMARY | 2024-08-27 07:21 | XMS_ITS | Referral Summary ---
Author Organization [facility] Address [address] [place] [address] Care Team Providers Care Laryngologist Name Role Phone Harley Goodman DO Primary Care Provider [phone] Encounters Date Type Department Care Team Description 08/20/2024 9:45 AM EDT Office Visit [facility] Heart at [facility] [address] [place] [address] Pinky Bishop MD Chronic systolic heart failure (CMS/HCC) (Primary Dx); Coronary artery disease of [place] artery of [place] heart with stable angina pectoris; Primary hypertension; Status post implantation of automatic cardioverter/defibrill ator (AICD); Palpitations 08/14/2024 Orders Only [facility] [address] [place] [phone] Kevin Jacobs MD 08/13/2024 11:14 AM EDT - 08/14/2024 6:44 PM EDT Hospital Encounter [facility] [address] [place] [phone] Tomas Covington MD Saad, Hani, MD Chest pain (Primary Dx); Hypertension, unspecified type Discharge Disposition: Home or Self Care () 08/13/2024 Travel 08/04/2024 - 08/04/2024 11:59 PM EDT Hospital Encounter [facility] Radiology External Films [address] [place] [phone] Bladder tumor Discharge Disposition: Home or Self Care () 08/04/2024 Orders Only [facility] Urology [address] [facility] [place] [address] Last Mcmanus MD Bladder tumor 07/16/2024 Orders Only [facility] Card[facility] Clinic [address] [facility] [place] [address] Mannie Armijo MD 07/16/2024 9:15 AM EDT Ancillary Procedure [facility] [address] [place] [address] Pre-operative cardiovascular examination, ICD in place 06/16/2024 7:10 PM EDT Ancillary Procedure [facility] [address] [place] [phone] Pre-operative cardiovascular examination, ICD in place from Last 3 Months Allergies No known active allergies Medications Medication [...] (03/21/2022): Added automatically from request for surgery [id number] Gastroesophageal reflux disease 03/02/2022 Increased immunoglobulin 03/02/2022 [...] check diet Coronary artery disease invo lving [place] coronary artery of [place] heart 09/19/2011 Assessment & Plan (08/13/2024 1:28 PM EDT): As above Type 1 diabetes mellitus 09/19/2011 Essential hypertension 09/19/2011 Immunizations Name Administration Dates Next Due Influenza Whole 01/19/2008 Influenza, High Dose Seasonal, Preservative Free 01/16/2017 Influenza, Seasonal, Quadrivalent, Adjuvanted Influenza, injectable, quadrivalent, preservativ e free 11/30/2016 Influenza, seasonal, injectable 01/23/2012,12/13 Influenza, trivalent, adjuvanted 01/17/2018 Novel [id number], preservative-free 01/27 Pneumococcal Conjugate PCV 13 11/14/2016 Pneumococcal Polysaccharide PPV23 01/17/2018,05/2016 Social History Tobacco Use Types Packs/Day Years Used Date Smoking Tobacco: Former Cigarettes Smokeless Tobacco: Never Tobacco Cessation:Counseling Given: Not Answered Alcohol Use Standard Drinks/Week Comments Never 0 (1 standard drink = 0.6 oz pur e alcohol) [facility] Utilities Answer Date Recorded In the past 12 months has th e [employer], gas, oil, or water [employer] threatened to shut off services in your [...] any time in the past 12 m [facility], were you homeless or living in a snf (including now)? No 08/13/2024 Hunger Vital Sign [...] Description 08/28/2024 8:30 AM EDT Office Visit [facility] Urology [address] [place] [address] Last Mcmanus MD [address] [place] [address] 10/13/2024 9:00 AM EDT Office Visit [facility] Heart at [facility] [address] [place] [address] Pinky Bishop MD [address] [facility] [address] [place] [address] Medical Devices Implanted Type Area Florist Designer Device Identifier Shelf Expiration Date Model / Serial / Lot Vigilant X4 Master [place]-D Is-1/Df4/Is4 Implanted:Qty: 1 on 02/12/2023 by Kevin Jacobs MD at [facility] VICE PRESIDENT CLIENT SERVICES-D ICD [employer] [id number] 09/09/2024 [id number] / [id number] / Stent,Synergy Mr 4.00 X 28 - [id number] Implanted:Qty: 1 on 09/27/2023 by Petar Foreman MD at [facility] Drug Eluting Stent [employer] [id number] 04/09/2024 [id number] / / [id number] Ingevity+ Is-1 Bi Positive Fix Ra/Rv 52cm Implanted:Qty: 1 on 03/21/2022 by Kevin Jacobs MD at [facility] Lead [employer] [id number] 03/09/2024 7841 / [id number] / Ingevity+ Is-1 Bi Positive Fix Ra/Rv 45cm Implanted:Qty: 1 on 03/21/2022 by Kevin Jacobs MD at [facility] Lead [employer] [id number] 01/02/2024 7840 / [id number] / [place] 4-Front S Active Fix Single Coil 59cm Implanted:Qty: 1 on 02/12/2023 by Kevin Jacobs MD at [facility] Lead [employer] [id number] 01/06/2025 0672 / [id number] / Lead,Acuity X4,Spiral L - [id number] - [id number] Implanted:Qty: 1 on 02/12/2023 by Kevin Jacobs MD at [facility] Lead [employer] [id number] 01/13/2025 4677 / [id number] / Pacer,Accolade ,Mri Dr Castelan - [id number] - [id number] Implanted:Qty: 1 on 03/21/2022 by Kevin Jacobs MD at [facility] Pacemaker Swivl 02/05/2024 L331 / [id number] / [id number] Description:Mode: DDD RYTHMIQ: OFF LRL / MTR [...] - 105 mg/dL 08/14/2024 3:47 PM EDT [facility] Comment:dcundic Blood Capillary blood specimen / Unknown 08/14/2024 3:34 PM EDT 08/14/2024 3:47 PM EDT Narrative [facility] - 08/14/2024 3:47 PM EDT Waived Testing in the ED is performed under the ED CLIA certificate #[id number]. Devante Leon MD LAB BLOOD ORDERABLES [facility] [address] [place] [address] * Lexiscan Stress Myocardial Perfusion Imaging (08/14/2024 11:03 AM EDT) Anatomical Region Laterality Modality Other 08/14/2024 10:4 3 AM EDT Narrative 08/14/2024 9:52 AM EDT 1 1 [facility] Heart Station [address] [place] [address] (fax) Lexiscan Stress Myocardial Perfusion Imaging- [facility] Name: LANI LIZAMA Study Date: 08/14/2024 10:43 AM B/P: / HR: Date of : 1950 Location: [facility] Height: 67 in. Age: 73 year(s) Patient [...] Lexiscan Exercise Time: 03:00 Device: Treadmill HR [place] Used: 12.00 % HR Recovery: -1 bpm Frequent VE: 0 VE/min Resolution: No Symptoms Max HR: 93 bpm Target HR: 125 bpm Achieved: No Resting HR: 82 bpm Max Predicted HR: 148 bpm Achv. of Max Predicted: 62 % BP Max: 154/89 BP at Rest: 147/72 Max RPP: 01346 mmHg*bpm Max ST Lead: V6 Max ST Phase: Postinfsn Stage No. in Phase: [address] Stage: 3-[address] Amplitude: -0.[address] Garfield: -0.470 mV/s Max ST Time in Phase: 03:30 Artifact Count: 0 Chest Pain: no Pharmalogical Stress Examination Protocol Stage Name Time in Stage Load Heart Rate BP Dosage ST Level Cardiac Arrhy Cardiac Symp. Other Pain Changes Symptom Supine 10:26 1.00 mets 82 bpm 147/72 -0.750 mm Infusion 30 seconds 00:30 1.00 mets 82 bpm 147/72 -0.650 mm [id number] 00:30 1.00 mets 87 bpm 147/72 -0.650 [...] 4 - Aneurysmal Procedure Staff Reading Group: [facility] Referring Physician: HARLEY GOODMAN Stress Operations Scheduler: Angely Dal[employer] Car Loader: Shira Zhou Ordering Physician: TATIANNA HAYWARD Advanced Practitioner: Bozena Santacruz NP Nurse: Juli Salazar Resting Perfusion Procedure Note Yuridia Velez MD - 08/14/2024 1 1 [facility] Heart Station [address] [place] [address] [phone] (fax) Lexiscan Stress Myocardial Perfusion Imaging- [facility] Name: LANI LIZAMA Study Date: 08/14/2024 10:43 AM B/P: / HR: Date of : 1950 Location: [facility] Height: 67 in. Age: 73 year(s) Patient [...] Lexiscan Exercise Time: 03:00 Device: Treadmill HR [place] Used: 12.00 % HR Recovery: -1 bpm Frequent VE: 0 VE/min Resolution: No Symptoms Max HR: 93 bpm Target HR: 125 bpm Achieved: No Resting HR: 82 bpm Max Predicted HR: 148 bpm Achv. of Max Predicted: 62 % BP Max: 154/89 BP at Rest: 147/72 Max RPP: 88102 mmHg*bpm Max ST Lead: V6 Max ST Phase: Postinfsn Stage No. in Phase: [address] Stage: 3-[address] Amplitude: -0.[address] Garfield: -0.470 mV/s Max ST Time in Phase: 03:30 Artifact Count: 0 Chest Pain: no Pharmalogical Stress Examination Protocol Stage Name Time in Stage Load Heart Rate BP Dosage ST Level Cardiac Arrhy Cardiac Symp. Other Pain Changes Symptom Supine 10:26 1.00 mets 82 bpm 147/72 -0.750 mm Infusion 30 seconds 00:30 1.00 mets 82 bpm 147/72 -0.650 mm [id number] 00:30 1.00 mets 87 bpm 147/72 -0.650 [...] 4 - Aneurysmal Procedure Staff Reading Group: [facility] Referring Physician: HARLEY GOODMAN Stress Operations Scheduler: Angely [employer] Car Loader: Shira Zhou Ordering Physician: TATIANNA HAYWARD Advanced Practitioner: Bozena Santacruz NP Nurse: Juli Salazar Resting Perfusion Tatianna Hayward MD CV STRESS PROCEDUR ES * COMPLETE ECHO (TTE) W/ IMAGING AGENT (08/14/2024 8:59 AM EDT) Anatomical Region Laterality Modality Other 08/14/2024 8:33 AM EDT Narrative 08/14/2024 9:44 AM EDT 1 1 [facility] Heart Station [address] [place] [address] [phone] (fax) Echocardiogram-[facility] Name: LANI LIZAMA Study Date: 08/14/2024 08:33 AM B/P: 118 mmHg/75 mmHg HR: 75 bpm Date of : 1950 Location: [facility] Height: 67 in. Age: 73 year(s) Patient [...] No pericardial effusion. Procedure Staff Reading Group: [facility] Event Specialist Product Demonstrator: MASTER Ortega, RDCS Ordering Physician: TATIANNA HAYWARD Wall Motion Scores -1 - hyperkinesia, 0 - not evaluated, 1 - normal, 2 - hypokinesia, 3 - akinesia, 4 - dyskinesia Procedure Note Fabricio Galindo MD - 08/14/2024 1 1 [facility] Heart Station [address] [place] [address] [phone] (fax) Echocardiogram-[facility] Name: LANI LIAZMA Study Date: 08/14/2024 08:33 AM B/P: 118 mmHg/75 mmHg HR: 75 bpm Date of : 1950 Location: [facility] Height: 67 in. Age: 73 year(s) Patient [...] No pericardial effusion. Procedure Staff Reading Group: [facility] Event Specialist Product Demonstrator: MASTER Ortega, RDCS Ordering Physician: TATIANNA HAYWARD Wall Motion Scores -1 - hyperkinesia, 0 - not evaluated, 1 - normal, 2 - hypokinesia, 3 - akinesia, 4 - dyskinesia Tatianna Hayward MD CV ECHO PROCEDURES * (ABNORMAL) High Sensitivity Troponin I (08/14/2024 7:14 AM EDT) Only the most recent of2 resultswithin the time period is included. Pathologist [facility] High Sensitivity Troponin I 160(HH) <20 ng/L 08/14/2024 8:12 AM EDT [facility] Blood Venous blood specimen / Unknown Venipuncture / Unknown 08/14/2024 7:14 AM EDT 08/14/2024 7:25 AM EDT Devante Leon MD LAB BLOOD ORDERABLES [facility]) [address] [place] [phone] * Lavender Top (08/14/2024 7:14 AM EDT) [facility] Extra Tube Hold for add-ons. 08/14/2024 9:01 AM EDT [facility] Comment:Auto resulted. Blood Venous blood specimen / Unknown 08/14/2024 7:14 AM EDT 08/14/2024 7:25 AM EDT Devante Leon MD LAB BLOOD ORDERABLES [facility]) [address] [place] [phone] * Cardiac device check - Remote ICD (08/14/2024 12:00 AM EDT) Only the most recent of2 resultswithin the time period is included. Anatomical Region Laterality Modality Other 08/14/2024 Kevin Jacobs MD CV IMPLANTABLE CARDI AC DEVICE PROCEDURES * ECG 12 lead (08/13/2024 5:41 PM EDT) Pathologist [facility] Ventricular Rate 86 BPM GE MUSE Atrial Rate 86 BPM GE MUSE IA Interval 154 ms GE MUSE QRS DURATION 144 ms GE MUSE QT Interval 424 ms GE MUSE QTC CALCULATION(BAZE TT) 507 ms GE MUSE P [place] 37 degrees GE MUSE R-[place] -56 degrees GE MUSE T Wave [place] 114 degrees GE MUSE 08/13/2024 5:25 PM [...] - 10.60 10*3/uL 08/13/2024 3:00 PM EDT [facility] RBC 4.47 4.20 - 5.70 10*6/uL 08/13/2024 3:00 PM EDT [facility] Hemoglobin 13.1 13.0 - 17.0 g/dL 08/13/2024 3:00 PM EDT [facility] Hematocrit 39.8 39.0 - 50.0 % 08/13/2024 3:00 PM EDT [facility] MCV 89.0 82.0 - 98.0 fL 08/13/2024 3:00 PM EDT [facility] MCH 29.3 27.0 - 33.0 pg 08/13/2024 3:00 PM EDT [facility] MCHC 32.9 32.0 - 35.0 g/dL 08/13/2024 3:00 PM EDT [facility] RDW 14.6 11.5 - 15.0 % 08/13/2024 3:00 PM EDT [facility] Neutrophils % 69.8 40.0 - 72.0 % 08/13/2024 3:00 PM EDT [facility] Lymphocytes % 19.8(L) 20.0 - 45.0 % 08/13/2024 3:00 PM EDT [facility] Monocytes % 7.5 5.0 - 12.0 % 08/13/2024 3:00 PM EDT [facility] Eosinophils % 1.8 0.0 - 6.0 % 08/13/2024 3:00 PM EDT [facility] Basophils % 0.7 0.0 - 1.0 % 08/13/2024 3:00 PM EDT [facility] Neutrophils Absolute 5.32 1.60 - 7.60 10*3/uL 08/13/2024 3:00 PM EDT [facility] Lymphocytes Absolute 1.51 1.20 - 4.00 10*3/uL 08/13/2024 3:00 PM EDT [facility] Monocytes Absolute 0.57 0.10 - 1.00 10*3/uL 08/13/2024 3:00 PM T [facility] Eosinophils Absolute 0.14 0.00 - 0.50 10*3/uL 08/13/2024 3:00 PM EDT [facility] Basophils Absolute 0.05 0.00 - 0.20 10*3/uL 08/13/2024 3:00 PM EDT [facility] Platelets 201 150 - 400 10*3/uL 08/13/2024 3:00 PM EDT [facility] nRBC % 0.0 0 % 08/13/2024 3:00 PM EDT [facility] Immature Granulocytes % 0.4 0.0 - 1.0 % 08/13/2024 3:00 PM EDT [facility] Immature Granulocytes Absolute 0.03 0.00 - 0.20 10*3/uL 08/13/2024 3:00 PM EDT [facility]) Blood Venous blood specimen / Unknown Venipuncture / Unknown 08/13/2024 2:21 PM EDT 08/13/2024 2:51 PM EDT Graeme Sorensen MD LAB BLOOD ORDERABLES [facility]) [address] [place] [address] * Phosphorus (08/13/2024 2:21 PM EDT) Phosphorus 3.6 2.5 - 5.0 mg/dL 08/13/2024 3:18 PM EDT [facility]) Blood Venous blood specimen / Unknown Venipuncture / Unknown 08/13/2024 2:21 PM EDT 08/13/2024 2:50 PM EDT Graeme Sorensen MD LAB BLOOD ORDERABLES Performing Organization Address City/[facility]/ZIP Co de Phone Number [facility]) [address] [place] [address] * Magnesium (08/13/2024 2:21 PM EDT) Magnesium 1.9 1.9 - 2.7 mg/dL 08/13/2024 3:18 PM EDT [facility]) Blood Venous blood specimen / Unknown Venipuncture / Unknown 08/13/2024 2:21 PM EDT 08/13/2024 2:50 PM EDT Graeme Sorensen MD LAB BLOOD ORDERABLES [facility]) [address] [place], [place] [id number] * (ABNORMAL) Comprehensive metabolic panel (08/13/2024 2:21 PM EDT) Sodium 137 136 - 145 mmol/L 08/13/2024 3:18 PM EDT [facility] Potassium 4.7 3.5 - 5.1 mmol/L 08/13/2024 3:18 PM EDT [facility] Chloride 108(H) 98 - 107 mmol/L 08/13/2024 3:18 PM EDT [facility] CO2 21 21 - 31 mmol/L 08/13/2024 3:18 PM EDT [facility] Anion Gap 13 7 - 20 mmol/L 08/13/2024 3:18 PM T [facility] BUN 26(H) 7 - 25 mg/dL 08/13/2024 3:18 PM T [facility] Creatinine 1.63(H) 0.70 - 1.30 mg/dL 08/13/2024 3:18 PM T [facility] BUN/Creatinine Ratio 16.0 07/30 3:18 PM T [facility] Glucose 165(H) 70 - 100 mg/dL 08/13/2024 3:18 PM T [facility] Calcium 9.1 8.6 - 10.3 mg/dL 08/13/2024 3:18 PM T [facility] AST 27 13 - 39 U/L 08/13/2024 3:18 PM T [facility] ALT (SGPT) 15 7 - 52 U/L 08/13/2024 3:18 PM T [facility] Alkaline Phosphatase 90 34 - 104 U/L 08/13/2024 3:18 PM T [facility] Total Protein 7.2 6.0 - 8.3 g/dL 08/13/2024 3:18 PM T [facility] Albumin 4.3 3.5 - 5.7 g/dL 08/13/2024 3:18 PM T [facility] Total Bilirubin 0.7 0.3 - 1.0 mg/dL 08/13/2024 3:18 PM EDT [facility] eGFR 44.5(L) >60.0 mL/min/1. 73m*2 08/13/2024 3:18 PM EDT [facility] Comment:The [facility] s estimated glomerular filtration rate (eGFR) will [...] MD LAB BLOOD ORDERABLES Performing Organization Address City/[facility]/ZIP Co de Phone Number [facility] [address] [place] [address] * XR transfer of outside films (08/04/2024 12:00 AM EDT) Narrative IMAGING - 08/04/2024 10:24 AM EDT This order has been auto-finalized and does not contain a result. Last Mcmanus MD IMG XR PROCEDURES IMAGING * CARDIAC DEVICE CHECK - REMOTE - ICD (07/17/2024 10:15 AM EDT) Only the most recent of2 resultswithin the time period is included. Mannie Armijo MD CV IMPLANTABLE CARDI AC DEVICE PROCEDURES Performing Organization Address City/[facility]/ZIP Co de Phone Number [facility] * CARDIAC [...] 12:52 PM 01/28/2023 8:05 PM Care Teams Laryngologist Relationship Specialty Start Date End Date Harley Goodman DO [address] [facility] [place] [address] PCP - General 03/02/22
--- OUTSIDE RECORDS SUMMARY | 2024-08-27 07:21 | XMS_ITS | Encounter Summary ---
Author Organization [facility] Address [address] [place] [address] Care Team Providers Care Electrophysiology Scientist Name Role Phone Harley Goodman DO Primary Care Provider [phone] Encounter Details Date Type Department Care Team (Late st Contact Info) Description 08/14/2024 Orders Only [facility] Cardiology Clinic [address] [place] [address] Kevin Jacobs MD [address] [place] [address] Social History Tobacco Use Types Packs/Day Years Used Date Smoking Tobacco: Former Cigarettes Smokeless Tobacco: Never Alcohol Use Standard Drinks/Week Comments Never 0 (1 standard drink = 0.6 oz pur e alcohol) [facility] Utilities Answer Date Recorded In the past 12 months has [facility] [employer], gas, oil, or water [employer] threatened to shut off services in your [...] any time in the past 12 m [facility], were you homeless or living in a retirement (including now)? No 08/13/2024 Hunger Vital Sign [...] Description 08/28/2024 8:30 AM EDT Office Visit [facility] Urology [address] [place] [address] Last Mcmanus MD [facility] [facility] [address] [place] [address] 10/13/2024 9:00 AM EDT Office Visit [facility] [address] [place] [address] Pinky Bishop MD [address] [facility] [address] [facility] [place] [address] documented as of this encounter Procedures Procedure Name Priority Date/Time Associated Diagnosis Comments CARDIAC DEVICE CHECK - REMOTE - ICD Routine 08/14/2024 12:00 AM EDT documented in this encounter Results * Cardiac device check - Remote ICD (08/14/2024 12:00 AM EDT) Anatomical Region Laterality Modality Other 08/14/2024 Kevin Jacobs MD CV IMPLANTABLE CARDI AC DEVICE PROCEDURES documented in this encounter Visit Diagnoses Not on filedocumented in this encounter Care Teams Electrophysiology Scientist Relationship Specialty Start Date End Date Harley Goodman DO [address] [place] [address] PCP - General 03/02/22 documented as of this encounter
--- OUTSIDE RECORDS SUMMARY | 2024-08-27 07:21 | XMS_ITS | Encounter Summary ---
Author Organization [facility] Address [facility] [place] [id number] Care Team Providers Care Automotive Technician Name Role Phone Harley Goodman DO Primary Care Provider [phone] Source Comments In the event this information is protected by the Federal Confidentiality of Alcohol and Drug AbusePatient Records regulations: The Federal rules restrict any use of the information to criminally investigate or prosecute any alcohol or drug abuse patient.[facility] Encounter Details Date Type Department Care Team (Latest Contact Info) Description 07/21/2018 H&P External-NonCCF Provider, External, BENEDICTO Do not enter address information under generic External Provider. Social History Tobacco Use Types Packs/Day Years Used Date Smoking Tobacco: Never Assessed Sex and Gender Information Value Date Recorded Sex Assigned at Not on file Legal Sex Male 11:54 AM EDT Gender Identity Not on file Sexual Orientation Not on file documented as of this encounter Plan of Treatment Not on file documented as of this encounter Visit Diagnoses Not on filedocumented in this encounter Care Teams Automotive Technician Relationship Specialty Start Date End Date Harley Goodman DO [address] [facility] [address] [place] [id number] PCP - General Internal Medicine 07/18/18 documented as of this encounter
--- OUTSIDE RECORDS SUMMARY | 2024-08-27 07:21 | XMS_ITS ---
Author Organization [facility] Address [address] [place] [address] Care Team Providers Care Cryptological Technician Name Role Phone Harley Goodman DO Primary Care Provider [phone] Active Problems Problem Noted Date Diagnosed Date [...] (03/21/2022): Added automatically from request for surgery [id number] Gastroesophageal reflux disease 03/02/2022 Increased immunoglobulin 03/02/2022 [...] check diet Coronary artery disease invo lving [place] coronary artery of [place] heart 09/19/2011 Assessment & Plan (08/13/2024 1:28 PM EDT): As above Type 1 diabetes mellitus 09/19/2011 Essential hypertension 09/19/2011 Current Oncology Plans No current plan information found. Past Plans No past plan information found. Radiation Treatments * No radiation treatments are documented for this patient in [facility]. Treatments may have been administered in another system. Lifetime Dose Tracking * Chemical Lifetime Dose Automatic Entry Manual Entr y Fluoro Time 97.87 minutes 0 minutes 97.87 minutes Air Kerma 1,585 mGy 0 mGy 1,585 mGy
--- OUTSIDE RECORDS SUMMARY | 2024-08-27 07:22 | XMS_ITS | CCD ---
Author Organization [facility] CliniSyca Care Team Providers Care Oleomargarine Maker Name Role Phone VIJAY, EHAB A Admitting Unavailable ELCANDIDO, EHAB A Attending Unavailable HARLEY CRESPO Referring Unavailable HARLEY CRESPO Primary Care Unavailable ELTAHAWJo, PINKY A Surgeon Unavailable [place] Procedure Practitioner Unavailab le ELTAHAWJo, PINKY A Admitting Unavailable VIJAY, PINKY Mota Attending Unavailable HARLEY CRESPO Referring Unavailable HARLEY CRESPO Primary Care Unavailable Arlen Kwong Unavailable [place] Unavailable Shannon Escobar Unavailable HARLEY CRESPO Primary Care Physician [phone] Harley Crespo DO Primary Care Provider DO Harley Crespo Primary Care Provider [phone] JULY Kwong Attending Provider DO Gagan Shahid Admit Provider [phone] DO Gagan Shahid Attending Provider Harley [...] GORDILLO Consulting Unavailable AURELIO, GAGAN Consulting Unavailable Denita Chairez Unavailable DO Harley Crespo Primary Care Provider VargheseBERTHAN John Paulnakul Kayden Attending Provider Harley Crespo MD Primary Care Provider Harley Crespo DO Primary Care Provider Lani LEMUS, Tamara Álvarez Attending Provider KENNETH TAVERA Attending Unavailable KENNETH TAVERA Attending Unavailable KENNETH TAVERA Attending Unavailable KENNETH TAVERA Attending Unavailable Harley Crespo DO [facility] Care Provider Lani LEMUS, Tamara Álvarez Attending Provider LatishaKingsley kirby Attending Unavailable LatishaKingsley Admitting Unavailable Harley Crespo [facility] Unavailable Tamara Amaro Admitting Unavail able Lani, Tamara Álvarez Attending Unavail able LARKIN, Jason R Admitting Unavailable LARKIN, Jason R Referring Unavailable LARKIN, Jason R Attending Unavailable LARKIN, Jason R Attending Unavailable LARKIN, Jason R Admitting Unavailable BALLHARLEY Referring Unavailable LARKIN, Jason Sanchez Attending Unavailable CRISTOPHER, EMEKA Referring Unavailable CRISTOPHER, EMEKA Referring Unavailable YOST, YFN Referring Unavailable JENNI, KEVIN Referring Unavailable JENNI, KEVIN Referring Unavailable ELTAHAWY, EHAB Attending Unavailable JENNI, KEVIN Referring Unavailable SELLERS, ARAMIS Attending Unavailable HORANI, DEJUAN Admitting Unavailable KATKOHEMALATHA Referring Unavailable NESTOR, HEIDY Attending Unavailable HORANI, DEJUAN Admitting Unavailable MOUKARBEL, LUISITO Referring Unavailable JENNI, KEVIN Referring Unavailable JENNI, KEVIN Referring Unavailable EKWENNA, OBI Referring Unavailable JENNI, KEVIN Referring Unavailable JENNI, KEVIN Referring Unavailable JENNI, KEVIN Referring Unavailable JENNI, KEVIN Referring Unavailable JENNI, KEVIN Referring Unavailable JENNI, KEVIN Referring Unavailable JENNI, KEVIN Referring Unavailable JENNI, KEVIN Referring Unavailable MOUKARBEL, LUISITO Referring Unavailable JENNI, KEVIN Referring Unavailable CRISTOPHER, EMEKA Referring Unavailable LAURA, HANI Attending Unavailable HORANI, DEJUAN Admitting Unavailable KATARZYNA SOLIS Referring Unavailable YESY, CHRISTOPHER Referring Unavailable YESY, CHRISTOPHER Referring Unavailable YESY, SADIAOPHER Referring Unavailable HORANI, DEJUAN Referring Unavailable HORANI, DEJUAN Referring Unavailable JENNI, KEVIN Referring Unavailable JENNI, KEVIN Referring Unavailable ELTAHAWY, EHAB Attending Unavailable AMERICO, BONAVENTURE Referring Unavailable ELTAHAWY, EHAB Attending Unavailable CRISTOPHER, EMEKA Referring Unavailable JENNI, KEVIN Referring Unavailable CRISTOPHER, EMEKA Referring Unavailable CRISTOPHER, EMEKA Referring Unavailable CRISTOPHER, EMEKA Referring Unavailable AMERICO, BONAVENTURE Referring Unavailable JENNI, KEVIN Attending Unavailable JENNI, KEVIN Referring Unavailable Allergies Allergy Classification Reported Allergen(s) Allergy Type Date of Onset Reaction(s) Facility (1 source) 11067,00; Translations: [Unknown] Propensity to adverse reactions (disorder) 02-10-[address] [facility] Repository (6 sources) semaglutide; Translations: [semaglutide] Allergy to substance 05-28-19 25 Gastrointestinal Upset [facility] Comment on above: constipation (1 source) No Known Medication Allergies; Translations: [No Known Medication Allergies] Propensity to adverse reactions (disorder) [facility] Repository Medications Current Medications Medication Drug [...] six hours as needed for pain HYDROcodone-acetaminophen ([place]) 5-325 MG tablet TAKE 1 TABLET BY [...] 75 mg tablet Discontinued 0 .ROUTE .COMPLEX May 17, 2024 7:29pm May 28, 2024 [...] (20 sources) Sodium-Glucose Cotransporter 2 Inhibitor Start: 1 End: 5 take 1 tablet by mouth [...] 1 Start: 03-12-2023 inject 20 [IU] by saha bcutaneous injection once daily in the morning [...] daily Multivitamin Active 1 TAB PO Daily October 17th, 2022 12:00am take 1 tablet by bhavik [...] Proton Pump Inhibitor Start: 12-09-19 End: 05-28-19 25 take 1 tablet by mouth once daily [...] procedure, # 2 tab(s), Refills(s) 0, Pharmacy: [facility]/pharmacy #[id number], 169, cm, 08/03/24 13:56:00 EDT, Height/Length [...] 2023 8:42am take 1 capsule by mo [facility] every twenty-four hours Colace [...] 12:00am July 10, 2021 9:59am triamcinolone acetonide 0.00287 mg/mg topical ointment (1 source) Corticosteroid triamcinolone [...] obstruction; Translations: [Biliary calculus] Onset: 2 Episodic Cardiac dysrhythmias (4 sources) Bradycardia, unspecified; Translations: [Palpitations] Onset: 1 Resolved: 2 Episodic Cataract (6 sources) Bilateral age-related [...] artery disease; Translations: [Atherosclerotic heart disease of [place] coronary artery without angina pectoris] Onset: 3 [...] bladder] Onset: 5 Episodic Nonspecific chest pain (20 sources) Chest pain; Translations: [Chest pain, unspecified] Onset: 2 07-11-2020 Episodic Nutritional deficiencies (20 sources) Vitamin D deficiency; Translations: [Vitamin D deficiency, unspecified] Onset: 1 Resolved: 2 Chronic Osteoarthritis (2 sources) Arthritis 08-03-2024 Chronic Other aftercare (20 sources) Long-term current use of insulin; Translations: [termite control service representative (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) use of insulin] Episodic Other aftercare (11 sources) MCC (current) use of insulin; Translations: [MCC current use of insulin Z79.4] Onset: 1 [...] nodule - T: 7mm RML nodule - 3CT: 6.5mm RML [...] Classification Problem Date Documented Da te Episodic/Chronic Chronic kidney disease (19 sources) Chronic kidney [...] 10-12-2022 10-12-2022 Episodic Other aftercare (1 source) M[facility] (current) use of aspirin; Translations: [QUALITY ASSURANCE INTERN CURRENT USE OF ASPIRIN] Onset: 04-03-2022 Episodic Other aftercare (1 source) Other long-term (current) drug therapy; Translations: [OTH QUALITY ASSURANCE INTERN CURRENT DRUG THERAPY] Onset: 04-03-2022 Episodic Other [...] Value Interpretation Reference Range Facility Office Visiton 08-20-2024 Follow-up visit [id number] Lani Lizama 1950 M Date Provider Department Center 08/20/2024 [id number], PINKY CARD [facility] Family History Problem Relation Age of Onset Heart attack Mother Other Father Other Brother Heart attack Maternal Grandmother Heart attack Maternal Grandfather Family Status - Relation Status Age at Mother Father Brother Maternal Grandmother Maternal Grandfather Level of Service:44826 [place] OFFICE/OUTPATIENT ESTABLISHED MOD MDM 30 MIN Normal [facility] 30on 08-14-2024 30 The patient is Moder ately Stable [...] and hemodynamic stability Outcome: Adequate for Discharge Normal [facility] 30 Lexiscan stress test Patient information sheet explained, [...] and hemodynamically stable Full final report from finisher polisher to follow. Juli Salazar RN [facility] Cardiovascular Stress Lab Normal [facility] HIGH SENSITIVITY TROPONIN Io n 08-14-2024 HS TROPONIN I (NG/L) 160 ng/L Critically high <[address] [facility] Comment on above: Performed By: #### L [id number] #### [facility] (BEAKER) [address] [place] [address] NURSNOTEon 08-14-2024 NURSNOTE Patient off the unit at 8:23 am for ECHO and stress test, returned to unit at 12:05 pm. [address] [facility] Orders Onlyon 08-14-2024 Orders Only [id number] Lani Lizama 1950 M Date Provider Department Center 08/14/2024 KEVIN DEMPSEY [facility] [place] [facility] Family History Problem Relation Age of Onset Heart attack Mother Other Father Other Brother Heart attack Maternal Grandmother Heart attack Maternal Grandfather Family Status - Relation Status Age at Mother Father Brother Maternal Grandmother Maternal Grandfather Normal [facility] POCT GLUCOSE METER UNSOLICIT ED RESULTSon 08-14-2024 Glucose [Mass/Vol] 155 mg/dL High 70-105 [facility] Comment on above: Order Comment: Check anti-Xa level every 6 hours while on heparin infusion, or per protocol. Result Comment: dcun dic Performed By: #### L [id number] #### [facility] ([facility]) [address] [place] [address] Glucose [Mass/Vol] 251 mg/dL High 70-105 [facility] Comment on above: Order Comment: Check anti-Xa level every 6 hours while on heparin infusion, or per protocol. Result Comment: jdlu gol Performed By: #### L [id number] #### [facility] ([facility]) [address] [place] [address] Glucose [Mass/Vol] 187 mg/dL High 70-105 [facility] Comment on above: Order Comment: Waive d Testing in the ED is performed under the ED CLIA certificate #[id number]. Result Comment: jdlu gol Performed By: #### L [id number] #### [facility] ([facility]) [address] [place] [address] 30on 08-13-2024 30 The patient is Moder ately Stable [...] and behaviors that affect risk of falls [place] fall precautions as indicated by assessment Educate [...] cardiac dysrhythmias or at baseline Outcome: Progressing Normal [facility] CBC WITH AUTO DIFFERENTIALon 08-13-2024 Basophils (Bld) [#/Vol] 0.05 10*3/uL Normal 0.00-0.[address] [facility] Comment on above: Performed By: #### L [id number] #### [facility] ([facility]) [address] [place] [address] Basophils/100 WBC (Bld) 0.7 % Normal 0.0-1.[address] [facility] Comment on above: Performed By: #### L [id number] #### [facility] ([facility]) [address] [facility] [place] [address] Eosinophils (Bld) [#/Vol] 0.14 10*3/uL Normal 0.00-0.[address] [facility] Comment on above: Performed By: #### L [id number] #### [facility] ([facility]) [address] [place] [address] Eosinophils/100 WBC (Bld) 1.8 % Normal 0.0-6.[address] [facility] Comment on above: Performed By: #### L [id number] #### [facility] ([facility]) [address] [place] [address] Erythrocyte distribution width (RBC) [Ratio] 14.6 % Normal 11.5-15.[address] [facility] Comment on above: Performed By: #### L [id number] #### [facility] ([facility]) [address] [place] [address] ERYTHROCYTE MEAN CORPUSCULAR HEMOGLOBIN CONCENTRATION (G/DL) BY AUTOMATED 32.9 g/dL Normal 32.0-35.[address] [facility] Comment on above: Performed By: #### L [id number] #### [facility] ([facility]) [address] [place] [address] Hematocrit (Bld) [Volume fraction] 39.8 % Normal 39.0-50.[address] [facility] Comment on above: Performed By: #### L [id number] #### [facility] [address] [place] [address] Hemoglobin (Bld) [Mass/Vol] 13.1 g/dL Normal 13.0-17.[address] [facility] Comment on above: Performed By: #### L [id number] #### [facility] ([facility]) [address] [place] [address] Immature granulocytes (Bld) [#/Vol] 0.03 10*3/uL Normal 0.00-0.[address] [facility] Comment on above: Performed By: #### L [id number] #### [facility] [address] [place] [address] Immature granulocytes/100 WBC (Bld) 0.4 % Normal 0.0-1.[address] [facility] Comment on above: Performed By: #### L [id number] #### [facility] ([facility]) [address] [place] [address] Lymphocytes (Bld) [#/Vol] 1.51 10*3/uL Normal 1.20-4.[address] [facility] Comment on above: Performed By: #### L [id number] #### [facility] [address] [place] [address] Lymphocytes/100 WBC (Bld) 19.8 % Low 20.0-45.[address] [facility] Comment on above: Performed By: #### L [id number] #### [facility] ([facility]) [address] [place] [address] MCH (RBC) [Entitic mass] 29.3 pg Normal 27.0-33.[address] [facility] Comment on above: Performed By: #### L [id number] #### [facility] ([facility]) [address] [place] [address] MCV (RBC) [Entitic vol] 89.0 fL Normal 82.0-98.[address] [facility] Comment on above: Performed By: #### L [id number] #### [facility] ([facility]) [address] [place] [address] Monocytes (Bld) [#/Vol] 0.57 10*3/uL Normal 0.10-1.[address] [facility] Comment on above: Performed By: #### L [id number] #### [facility] ([facility]) [address] [place] [address] Monocytes/100 WBC (Bld) 7.5 % Normal 5.0-12.[address] [facility] Comment on above: Performed By: #### L [id number] #### [facility] ([facility]) [address] [place] [address] Neutrophils (Bld) [#/Vol] 5.32 10*3/uL Normal 1.60-7.[address] [facility] Comment on above: Performed By: #### L [id number] #### [facility] ([facility]) [address] [place] [address] Neutrophils/100 WBC (Bld) 69.8 % Normal 40.0-72.[address] [facility] Comment on above: Performed By: #### L [id number] #### [facility] ([facility]) [address] [place] [address] NRBC (PER 100 WBCS) BY AUTOMATED COUNT 0.0 % Normal [address] [facility] Comment on above: Performed By: #### L [id number] #### [facility] ([facility]) [address] [place] [address] PLATELETS (10*3/UL) IN BLOOD AUTOMATED COUNT 201 10*3/uL Normal 150-[address] [facility] Comment on above: Performed By: #### L [id number] #### [facility] [address] [place] [address] RBC (Bld) [#/Vol] 4.47 10*6/uL Normal 4.20-5.[address] [facility] Comment on above: Performed By: #### L [id number] #### [facility] ([facility]) [address] [place] [address] WBC (Bld) [#/Vol] 7.62 10*3/uL Normal 4.00-10.[address] [facility] Comment on above: Performed By: #### L [id number] #### [facility] ([facility]) [address] [place] [address] COMPREHENSIVE METABOLIC PANE [facility] 08-13-2024 Albumin [Mass/Vol] 4.3 g/dL Normal 3.5-5.7 [facility] Comment on above: Performed By: #### L [id number] #### [facility] ([facility]) [address] [place] [address] ALP [Catalytic activity/Vol] 90 U/L Normal 34-[address] [facility] Comment on above: Performed By: #### L [id number] #### [facility] ([facility]) [address] [place] [address] ALT [Catalytic activity/Vol] 15 U/L Normal 7-[address] [facility] Comment on above: Performed By: #### L [id number] #### [facility] ([facility]) [address] [place] [address] Anion gap [Moles/Vol] 13 mmol/L Normal 7-20 [facility] Comment on above: Performed By: #### L [id number] #### [facility] ([facility]) [address] [place] [address] AST [Catalytic activity/Vol] 27 U/L Normal 13-[address] [facility] Comment on above: Performed By: #### L [id number] #### [facility] ([facility]) [address] [place] [address] Bilirubin [Mass/Vol] 0.7 mg/dL Normal 0.3-1.0 [facility] Comment on above: Performed By: #### L [id number] #### [facility] [address] [place] [address] Calcium [Mass/Vol] 9.1 mg/dL Normal 8.6-10.3 [facility] Comment on above: Performed By: #### L [id number] #### [facility] ([facility]) [address] [place] [address] Chloride [Moles/Vol] 108 mmol/L High 98-107 [facility] Comment on above: Performed By: #### L [id number] #### [facility] ([facility]) [address] [place] [address] CO2 [Moles/Vol] 21 mmol/L Normal 21-31 [facility] Comment on above: Performed By: #### L [id number] #### [facility] ([facility]) [address] [place] [address] Creatinine [Mass/Vol] 1.63 mg/dL High 0.70-1.30 [facility] Comment on above: Performed By: #### L [id number] #### [facility] ([facility]) [address] [place] [address] GLOMERULAR FILTRATION RATE ML/MIN/1.73 SQ M.PREDICTED 44.5 mL/min/1.73m*2 Low >60.0 [facility] Comment on above: Result Comment: [facility]???s estimated glomerular filtration rate (eGFR) will [...] individuals. Performed By: #### L [id number] #### [facility] ([facility]) [address] [place] [address] Glucose [Mass/Vol] 165 mg/dL High 70-100 [facility] Comment on above: Performed By: #### L [id number] #### [facility] ([facility]) [address] [place] [address] Potassium [Moles/Vol] 4.7 mmol/L Normal 3.5-5.1 [facility] Comment on above: Performed By: #### L [id number] #### [facility] ([facility]) [address] [place] [address] Protein [Mass/Vol] 7.2 g/dL Normal 6.0-8.3 [facility] Comment on above: Performed By: #### L [id number] #### [facility] ([facility]) [address] [place] [address] Sodium [Moles/Vol] 137 mmol/L Normal 136-145 [facility] Comment on above: Performed By: #### L [id number] #### [facility] ([facility]) [address] [place] [address] Urea nitrogen [Mass/Vol] 26 mg/dL High 7-[address] [facility] Comment on above: Performed By: #### L [id number] #### [facility] ([facility]) [address] [place] [address] UREA NITROGEN/CREATININE (MASS RATIO) IN SER/PLAS 16.[address] [facility] Comment on above: Performed By: #### L [id number] #### [facility] ([facility]) [address] [place] [address] CONSULTon 08-13-2024 CONSULT ----- ----- Attestation signed by Rashid Urrutia MD at 08/13/2024 7:18 PM I personally spoke with and examined Mr. Lizama with Dr. Pagan today. I then spoke with his finisher polisher Dr. Bishop about his longitudinal care. At issue is that he has undergone extensive stenting of vein grafts (I reviewed his recent cath films) and has advanced CKD making repeat cath/contrast at high risk for contrast nephropathy. He presents with [...] poor LV function and recurrent non-STEMI presentation. ----- Cardiology Consult Note Reason for Consult: Chest pain HPI: Mr. Lani Lizama is a 73-year-old male patient with a past medical history of CAD status post CABG x 5, PCI to SVG-PDA on 08/2023, HFrEF EF [...] mildly elevated troponin. Patient was transferred to [facility] for further evaluation and treatment. Patient [...] PVD (peripheral vascular disease), and Third degree heart block (CMS/HCC). Surgical [...] 08/12/2024 cholecalciferol (Vitamin D3) 25 MCG (1000 unit (more content not included)... Normal [facility] HIGH SENSITIVITY TROPONIN Io n 08-13-2024 HS TROPONIN I (NG/L) 294 ng/L Critically high <[address] [facility] Comment on above: Performed By: #### L [id number] #### [facility] (AKER) [address] [place] [address] MAGNESIUMon 08-13-2024 Magnesium [Mass/Vol] 1.9 mg/dL Normal 1.9-2.7 [facility] Comment on above: Performed By: #### L [id number] #### [facility] ([facility]) [address] [place] [address] PHOSPHORUSon 08-13-2024 Magnesium [Mass/Vol] 3.6 mg/dL Normal 2.5-5.0 [facility] Comment on above: Performed By: #### L [id number] #### [facility] ([facility]) [address] [place] [address] POCT GLUCOSE METER UNSOLICIT ED RESULTSon 08-13-2024 Glucose [Mass/Vol] 104 mg/dL Normal 70-105 [facility] Comment on above: Order Comment: Waive d Testing in the ED is performed under the ED CLIA certificate #[id number]. Result Comment: [email or web address] Performed By: #### L [id number] ####[facility] ([facility]ER)[address] [place] [address] Glucose [Mass/Vol] 207 mg/dL High 70-105 [facility] Comment on above: Order Comment: Waive d Testing in the ED is performed under the ED CLIA certificate #[id number]. Result Comment: jdlu gol Performed By: #### L [id number] ####[facility] ([facility]ER)[address] [place] [address] Glucose [Mass/Vol] 160 mg/dL High 70-105 [facility] Comment on above: Order Comment: Waive d Testing in the ED is performed under the ED CLIA certificate #[id number]. Result Comment: jdlu gol Performed By: #### L [id number] ####[facility] (BEAKER)[address] [facility] [place] [address] Main OR Preoperative Recordo n 08-11-2024 Main OR Preoperative Record Main OR Preoperative Record Holding Area Document Type FTURO Summary Primary Physician: Jason LARKIN MD Finalized Date/Time: 08/11/24 16:19:02 Pt. Name: LANI LIZAMA/Sex: 1950 Male Med Rec #: [id number] Physician: Jason LARKIN MD Financial #: [id number] Pt. Type: O Room/Bed: / Admit/Disch: 08/04/24 09:15:12 - 08/04/24 23:59:59 Institution: Case Times Holding FTURO Pre-Care Text: Verifies consent for planned procedure, identifies individual values and wishes concerning care, includes family members in perioperative teaching Secures patient's records' belongings, and valuables, maintains patient's dignity and privacy, and maintains patient confidentiality Entry 1 In Holding 08/04/24 09:24:00 Outcomes Met? Yes Last Modified By: Maribell POSADA, Rose Olvera 08/04/24 09:24:04 Post-Care Text: The patient [...] SUNITA Agrawal RN, Ruthann 08/11/24 16:19 Normal [facility] Urine Cytology ([facility])on 0 08-07-2024 Microscopic exam Cytology (U) [Interp] Diagnosis Info Invalid Interpretation Code [facility] Comment on above: Result Comment: A:Ur ine,Urine:Voided Interpretation - Adequate cellularity for evaluation. CPT 61200 MicroScopic Description - Adequacy - Gross Description Site ID:A color Red fixative Alcohol Specimen designated Urine received in alcohol preservative and labeled with the patient???s name, consists of 60ml cloudy red fluid. Electronically signed by : on: 08/07/2024 13:02:18 Performed By: #### 1 [id number] #### [facility] [address] [place] [address] Main OR Intraoperative Recor don 08-04-2024 Main OR Intraoperative Record Main OR Intraoperative Record IntraOp Document Type FTURO Summary Primary Physician: Jason LARKIN MD Finalized Date/Time: 08/04/24 10:03:52 Pt. Name: LANI LIZAMA/Sex: 1950 Male Med Rec #: [id number] Physician: Jason LARKIN MD Financial #: [id number] Pt. Type: O Room/Bed: / Admit/Disch: 08/04/24 09:15:12 - Institution: Case Times FTURO Entry 1 Patient Times In Room 08/04/24 09:45:00 Out Room 08/04/24 10:10:00 Procedure Times Start 08/04/24 09:53:00 Stop 08/04/24 10:05:00 Anesthesia Times Last Modified By: SUNITA Agrawal RN, Ruthann 08/04/24 10:03:16 Case Attendance FTURO Entry 1 Entry 2 Entry 3 Case Attendee CHAYA LEMUS, Jason Agrawal RN, DEEPALIOR, Halley WRIGHT, Hortencia Holt Role Performed Surgeon - Primary Teacher Dancing - Primary Scrub - Primary Time In 08/04/24 09:45:00 08/04/24 09:45:00 08/04/24 09:45:00 Time Out 08/04/24 10:10:00 08/04/24 10:10:00 08/04/24 10:10:00 Procedure CYSTOSCOPY LOCAL(.) CYSTOSCOPY LOCAL(.) CYSTOSCOPY LOCAL(.) Comments Last Modified By: SUNITA Agrawal RN, SUNITA Agrawal RN, SUNITA Agrawal RN, Ruthann 08/04/24 Yanet 08/04/24 Yanet 08/04/24 10:03:18 10:03:36 10:03:36 Surgical Procedures FTURO Entry 1 Procedure Description Procedure CYSTOSCOPY LOCAL Modifiers . Surgeon Description CYSTO, irrigation of bladder Primary Procedure Yes Primary Surgeon Jason LARKIN MD 08/04/24 09:53:00 Stop 08/04/24 10:05:00 Anesthesia Type Local Surgical Service Urology Wound Class 2 - Clean-Contaminated Last Modified By: SUNITA Agrawal RN, Ruthann 08/04/24 10:03:21 General Case Data FTURO Pre-Care [...] Position Verified Availability Equipment, Medication Time Out Jason LARKIN MD, Verified (If Participants SUNITA Agrawal RN, Applicable) Halley Holt CST, Kimberly A Time Out Complete 08/04/24 09:50:00 Allergies Reviewed? [...] Ruthann 08/04/24 10:03:50 Case Comments Finalized By: SUINTA Agrawal RN, Ruthann Document Signatures Signed By: SUNITA Agrawal RN, Ruthann 08/04/24 10:03 Normal [facility] Operative Reporton Operative Report Operative Report Patient: [...] TURBT potentially at a tertiary center.. Normal [facility] Comment on above: Result Comment: Elec tronically Signed By: CHAYA LEMUS, Jason Edgar.oniel\Date and Time Signed: 08/04/24 10:12 EDT Urine Cytology ([facility])on 08-03-2024 Method of Extraction Voided Normal [facility] Comment on above: Performed By: #### 1 [id number] #### [facility] [address] Number of Jars 1 Invalid Interpretation Code [facility] Comment on above: Performed By: #### 1 [id number] #### [facility] [address] [place] [id number] Specimen Urine Normal [facility] Comment on above: Performed By: #### 1 [id number] #### [facility] [address] Type of Service Technical Only Normal [facility] Comment on above: Performed By: #### 1 [id number] #### [facility] [address] [place] [address] Urology Office/Clinic Noteon 08-03-2024 Urology Office/Clinic Note [...] factor for urothelial ca. 5. 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 Hx of CABG x5 1995 at [facility], PCI/stent x8 at [facility]. Elevated risk for periop complications. Follow-up With When Contact Information CHAYA LEMUS, Jason Sanchez, URL [facility] [address] [place] [address] [phone] Additional Instructions: sched cysto Patient Education Cystoscopy I, Tiffany Patten, personally scribed for Dr. Larkin on 08/03/2024 14:23:23. . Documentation recorded by the scribTiffany cisneros, accurately reflects the services(s) I performed and decisions made by me. Authenticated by Dr. Larkin on 08/03/2024 14:25:00. Problem List/Past Medical History Ongoing Abdominal pain, RLQ Anticoagulated Arthritis ASHD (arteriosclerotic heart disease) Atheroscler of [place] artery of both legs with intermit claudication [...] abdominal aort (more content not included)... Normal [facility] Comment on above: Result Comment: Elec tronically Signed By: Jason LARKIN MD\.br\Date and Time Signed: 08/03/24 14:25 EDT\.br\Electronically Co-Signed By: Tiffany Patten\.br\Date and Time Co-Signed: 08/03/24 14:24 EDT Basophils Auto (Bld) [#/Vol] on 07-15-2024 Basophils (Bld) [#/Vol] Automated basophil count 0.0-0.[address] [facility] Basophils/100 WBC Auto (Bld) on 07-15-2024 Basophils/100 WBC (Bld) Automated basophil % 0.2-2.[address] [facility] Eosinophils/100 WBC Auto (Bl d)on 07-15-2024 Eosinophils/100 WBC (Bld) Automated eosinophil % 0.9-7.[address] [facility] Erythrocyte distribution wid th Auto (RBC) [Ratio]on 07-15-2024 Erythrocyte distribution width (RBC) [Ratio] Erythrocyte distribution width [Ratio] by Automated count 11.0-15.[address] [facility] Estimated glomerular filtrat ion rate (GFR) non- Americanon 07-15-2024 GFR/1.73 sq M.predicted among non-blacks MDRD (S/P/Bld) [Vol rate/Area] Estimated glomerular filtration rate (GFR) non- Low >=60 mL/min/1.7 3m [address] [facility] Globulin Calc (S) [Mass/Vol] on 07-15-2024 Globulin (S) [Mass/Vol] Serum globulin measurement by calculation (mass/volume) [facility] Hematocrit Auto (Bld) [Volum e fraction]on 07-15-2024 Hematocrit (Bld) [Volume fraction] Hematocrit [Volume Fraction] of Blood by Automated count 42.0-54.[address] [facility] Hemoglobin [Mass/volume] in Bloodon 07-15-2024 Hemoglobin (Bld) [Mass/Vol] Hemoglobin [Mass/volume] in Blood 14.0-18.[address] [facility] Laboratory - Chemistry and C hemistry - challengeon 07-15-2024 Albumin [Mass/Vol] 3.8 g/dL 3.4-5.0 [facility] ALP [Catalytic activity/Vol] 128 U/L High 46-[address] [facility] ALT [Catalytic activity/Vol] 30 U/L 16-[address] [facility] AST [Catalytic activity/Vol] 22 U/L 15-[address] [facility] Bilirubin [Mass/Vol] 0.6 mg/dL 0.2-1.0 [facility] Calcium [Mass/Vol] 8.9 mg/dL 8.5-10.1 [facility] Chloride [Moles/Vol] 104 mmol/L 98-107 [facility] CO2 [Moles/Vol] 28.1 mmol/L 21.0-32.0 [facility] Creatinine [Mass/Vol] 1.74 mg/dL High 0.70-1.30 [facility] GFR/1.73 sq M.predicted MDRD (S/P/Bld) [Vol rate/Area] 47 mL/min/{1.73_m2} Low >=60 mL/min/1.7 [address]m [address] [facility] Glucose [Mass/Vol] 142 mg/dL High 74-106 [facility] Potassium [Moles/Vol] 4.1 mmol/L 3.5-5.1 [facility] Protein [Mass/Vol] 7.5 g/dL 6.4-8.2 [facility] Sodium [Moles/Vol] 140 mmol/L 136-145 [facility] Urea nitrogen [Mass/Vol] 19.0 mg/dL High 7.0-18.[address] [facility] Urea nitrogen/Creatinine [Mass ratio] 10.9 mg/mg [facility] - Hematology and Cell countson 07-15-2024 Immature granulocytes/100 WBC (Bld) 0.6 % High 0.0-0.[address] [facility] Leukocytes [#/volume] correc soraya for nucleated erythrocytes in Blood by Automated counon 07-15-2024 WBC corrected for nucl RBC Auto (Bld) [#/Vol] Leukocytes [#/volume] corrected for nucleated erythrocytes in Blood by Automated coun 4.0-11.[address] [facility] Lymphocytes Auto (Bld) [#/Vo l]on 07-15-2024 Lymphocytes (Bld) [#/Vol] Lymphocytes [#/volume] in Blood by Automated count 1.2-3.[address] [facility] Lymphocytes/100 WBC Auto (Bl d)on 07-15-2024 Lymphocytes/100 WBC (Bld) Lymphocytes/100 leukocytes in Blood by Automated count 20.5-60.[address] [facility] MCH Auto (RBC) [Entitic mass ]on 07-15-2024 MCH (RBC) [Entitic mass] MCH [Entitic mass] by Automated count 25.9-34.[address] [facility] MCHC Auto (RBC) [Mass/Vol]on 07-15-2024 MCHC (RBC) [Mass/Vol] MCHC [Mass/volume] by Automated count 29.9-35.[address] [facility] MCV Auto (RBC) [Entitic vol] on 07-15-2024 MCV (RBC) [Entitic vol] MCV [Entitic volume] by Automated count 80.0-94.[address] [facility] Monocytes Auto (Bld) [#/Vol] on 07-15-2024 Monocytes (Bld) [#/Vol] Automated blood monocyte count 0.3-0.[address] [facility] Monocytes/100 WBC Auto (Bld) on 07-15-2024 Monocytes/100 WBC (Bld) Automated monocyte % 1.7-12.[address] [facility] Neutrophils Auto (Bld) [#/Vo l]on 07-15-2024 Neutrophils (Bld) [#/Vol] Neutrophils [#/volume] in Blood by Automated count 1.4-6.[address] [facility] Neutrophils/100 WBC Auto (Bl d)on 07-15-2024 Neutrophils/100 WBC (Bld) Automated neutrophil % 43.0-75.[address] [facility] No Panel Informationon 07-15 Eosinophils # (Auto) 0.3 10 3/uL 0.0-0.7 [facility] Immature Granulocyte # (Auto) 0.05 10 3/uL High 0.00-0.[address] [facility] Platelet mean volume Auto (B ld) [Entitic vol]on 07-15-2024 Platelet mean volume (Bld) [Entitic vol] Platelet mean volume [Entitic volume] in Blood by Automated count 9.5-13.[address] [facility] Platelets Auto (Bld) [#/Vol] on 07-15-2024 Platelets (Bld) [#/Vol] Platelets [#/volume] in Blood by Automated count 150-[address] [facility] RBC Auto (Bld) [#/Vol]on RBC (Bld) [#/Vol] Erythrocytes [#/volu me] in Blood by Automated count 4.70-6.[address] [facility] Serum or plasma albumin/glob ulin mass ratioon 07-15-2024 Albumin/Globulin [Mass ratio] Serum or plasma albumin/globulin mass ratio [facility] Serum or plasma anion gap de terminationon 07-15-2024 Anion gap [Moles/Vol] Serum or plasma an ion gap determination [facility] Erythrocyte distribution wid th Auto (RBC) [Ratio]on 07-07-2024 Erythrocyte distribution width (RBC) [Ratio] Erythrocyte distribution width [Ratio] by Automated count High 11.0-15.[address] [facility] Estimated glomerular filtrat ion rate (GFR) non- Americanon 07-07-2024 GFR/1.73 sq M.predicted among non-blacks MDRD (S/P/Bld) [Vol rate/Area] Estimated glomerular filtration rate (GFR) non- Low >=60 mL/min/1.7 3m [address] [facility] Hematocrit Auto (Bld) [Volum e fraction]on 07-07-2024 Hematocrit (Bld) [Volume fraction] Hematocrit [Volume Fraction] of Blood by Automated count 42.0-54.0 [facility] Hemoglobin [Mass/volume] in Bloodon 07-07-2024 Hemoglobin (Bld) [Mass/Vol] Hemoglobin [Mass/volume] in Blood 14.0-18.[address] [facility] Laboratory - Chemistry and C hemistry - challengeon 07-07-2024 Albumin [Mass/Vol] 3.9 g/dL 3.4-5.0 [facility] Calcium [Mass/Vol] 9.3 mg/dL 8.5-10.1 [facility] Chloride [Moles/Vol] 105 mmol/L 98-107 [facility] CO2 [Moles/Vol] 28.7 mmol/L 21.0-32.0 [facility] Creatinine [Mass/Vol] 1.87 mg/dL High 0.70-1.30 [facility] GFR/1.73 sq M.predicted MDRD (S/P/Bld) [Vol rate/Area] 43 mL/min/{1.73_m2} Low >=60 mL/min/1.7 [address]m [address] [facility] Glucose [Mass/Vol] 196 mg/dL High 74-106 [facility] Magnesium [Mass/Vol] 1.9 mg/dL 1.8-2.4 [facility] Potassium [Moles/Vol] 5.5 mmol/L High 3.5-5.1 [facility] Sodium [Moles/Vol] 139 mmol/L 136-145 [facility] Urate [Mass/Vol] 3.5 mg/dL 3.5-7.2 [facility] Urea nitrogen [Mass/Vol] 19.0 mg/dL High 7.0-18.[address] [facility] Urea nitrogen/Creatinine [Mass ratio] 10.2 mg/mg [facility] Laboratory - Urinalysison Protein (U) [Mass/Vol] 124.0 mg/dL High <=11.9 [facility] Leukocytes [#/volume] correc soraya for nucleated erythrocytes in Blood by Automated counon 07-07-2024 WBC corrected for nucl RBC Auto (Bld) [#/Vol] Leukocytes [#/volume] corrected for nucleated erythrocytes in Blood by Automated coun 4.0-11.[address] [facility] MCH Auto (RBC) [Entitic mass ]on 07-07-2024 MCH (RBC) [Entitic mass] MCH [Entitic mass] by Automated count 25.9-34.[address] [facility] MCHC Auto (RBC) [Mass/Vol]on 07-07-2024 MCHC (RBC) [Mass/Vol] MCHC [Mass/volume] by Automated count 29.9-35.[address] [facility] MCV Auto (RBC) [Entitic vol] on 07-07-2024 MCV (RBC) [Entitic vol] MCV [Entitic volume] by Automated count 80.0-94.[address] [facility] No Panel Informationon 07-07 25-Hydroxy Vitamin D Total 41.5 ng/mL [facility] Comment on above: <20 ng/mL Vit D defi cient20-<30 ng/mL Vit D [id number] ng/mL Vit D sufficient>100 ng/mL Potential Toxicity Parathyroid Hormone (Intact) 62 pg/mL 15-[address] [facility] Comment on above: Performed at: [facility] [address] [id number] Director: Kwaku Park PhD, Phone: [phone] Phosphorus Level 3.7 mg/dL 2.6-4.7 [facility] Urine Random Creatinine 69.77 mg/dL 20.00-300. [address] [facility] Platelet mean volume Auto (B ld) [Entitic vol]on 07-07-2024 Platelet mean volume (Bld) [Entitic vol] Platelet mean volume [Entitic volume] in Blood by Automated count 9.5-13.[address] [facility] Platelets Auto (Bld) [#/Vol] on 07-07-2024 Platelets (Bld) [#/Vol] Platelets [#/volume] in Blood by Automated count 150-[address] [facility] RBC Auto (Bld) [#/Vol]on RBC (Bld) [#/Vol] Erythrocytes [#/volu me] in Blood by Automated count 4.70-6.[address] [facility] Serum or plasma anion gap de terminationon 07-07-2024 Anion gap [Moles/Vol] Serum or plasma an ion gap determination [facility] Urine Cultureon 07-07-2024 Bacteria identified Cx Nom (U) <9,000 colonies/ml mixed bacterial skin contaminants 2 Days PERFORMED BY: [facility] [address] [place] [address] PATHOLOGIST CUSTOMER SUPPORT EXECUTIVE ANDREA FARRELL M.D. Normal [facility] Comment on above: Performed By: #### C UU #### [facility] [address] [id number] [facility] Urine protein/creatinine rat ioon 07-07-2024 Protein/Creatinine (U) [Ratio] Urine protein/creatinine ratio [facility] - Microbiology an d Antimicrobial susceptibilityon 06-10-2024 SARS-CoV-2 (COVID-19) RNA RAMO+probe Ql (Unsp spec) Positive Abnormal NEGATIVE [facility] Comment on above: This test has not [...] 06-10 Bedside Influenza Type A Antigen Negative [facility] Comment on above: Negative for Flu A p rotein antigen. Infection due to Flu Acannot be ruled out. Flu A antigen in the sample may bebelow the detection limit of the test. Bedside Influenza Type B Antigen Negative [facility] Comment on above: Negative for Flu B p rotein antigen. Infection due to Flu Bcannot be ruled out. Flu B antigen in the sample may bebelow the detection limit of the test. Cholesterol in LDL Calc [Mas s/Vol]on 05-05-2024 Cholesterol in LDL [Mass/Vol] Cholesterol in LDL [Mass/volume] in Serum or Plasma by calculation [facility] Comment on above: <100 mg/dl [id number] 0-129 mg/dl NEAR OR ABOVE [id number] mg/dl BORDERLINE [id number] mg/dl HIGH>190 mg/dl VERY HIGH Cholesterol in VLDL Calc [Ma ss/Vol]on 05-05-2024 Cholesterol in VLDL [Mass/Vol] Cholesterol in VLDL [Mass/volume] in Serum or Plasma by calculation [facility] Estimated glomerular filtrat ion rate (GFR) non- Americanon 05-05-2024 GFR/1.73 sq M.predicted among non-blacks MDRD (S/P/Bld) [Vol rate/Area] Estimated glomerular filtration rate (GFR) non- Low >=60 mL/min/1.7 3m [address] [facility] Globulin Calc (S) [Mass/Vol] on 05-05-2024 Globulin (S) [Mass/Vol] Serum globulin measurement by calculation (mass/volume) [facility] - Chemistry and C hemistry - challengeon 05-05-2024 Albumin [Mass/Vol] 3.7 g/dL 3.4-5.0 [facility] ALP [Catalytic activity/Vol] 162 U/L High 46-[address] [facility] ALT [Catalytic activity/Vol] 17 U/L 16-[address] [facility] AST [Catalytic activity/Vol] 20 U/L 15-[address] [facility] Bilirubin [Mass/Vol] 0.5 mg/dL 0.2-1.0 [facility] Calcium [Mass/Vol] 9.2 mg/dL 8.5-10.1 [facility] Chloride [Moles/Vol] 104 mmol/L 98-107 [facility] Cholesterol [Mass/Vol] 117 mg/dL <=200 [facility] Cholesterol in HDL [Mass/Vol] 39 mg/dL Low 40-[address] [facility] Comment on above: > or =60 mg/dl - LOW CARDIOVASCULAR RISK<40 mg/dl - HIGH CARDIOVASCULAR RISK CO2 [Moles/Vol] 28.5 mmol/L 21.0-32.0 [facility] Creatinine [Mass/Vol] 2.15 mg/dL High 0.70-1.30 [facility] GFR/1.73 sq M.predicted MDRD (S/P/Bld) [Vol rate/Area] 37 mL/min/{1.73_m2} Low >=60 mL/min/1.7 3m [address] [facility] Glucose [Mass/Vol] 220 mg/dL High 74-106 [facility] Potassium [Moles/Vol] 4.6 mmol/L 3.5-5.1 [facility] Protein [Mass/Vol] 8.0 g/dL 6.4-8.2 [facility] Sodium [Moles/Vol] 141 mmol/L 136-145 [facility] Triglyceride [Mass/Vol] 171 mg/dL High <=[address] [facility] Urea nitrogen [Mass/Vol] 27.0 mg/dL High 7.0-18.[address] [facility] Urea nitrogen/Creatinine [Mass ratio] 12.6 mg/mg [facility] Microalbumin [Mass/volume] i n Urineon 05-05-2024 Albumin DL <= 20 mg/L (U) [Mass/Vol] Microalbumin [Mass/volume] in Urine <=30.[address] [facility] No Panel Informationon 05-05 Urine Random Creatinine 61.15 mg/dL 20.00-300. [address] [facility] Serum or plasma albumin/glob ulin mass ratioon 05-05-2024 Albumin/Globulin [Mass ratio] Serum or plasma albumin/globulin mass ratio [facility] Serum or plasma anion gap de terminationon 05-05-2024 Anion gap [Moles/Vol] Serum or plasma an ion gap determination [facility] Serum or plasma total choles terol/high density lipoprotein (HDL) cholesterol mass yulia 05-05-2024 Cholesterol.total/Chol esterol in HDL [Mass ratio] Serum or plasma total cholesterol/high density lipoprotein (HDL) cholesterol mass rat [facility] Comment on above: 3.3 - 4.4 LOW RISK4. 4 - 7.1 AVERAGE RISK7.1 - 11.0 MODERATE RISK>11.0 HIGH RISK Urine microalbumin/creatinin e mass ratioon 05-05-2024 Albumin/Creatinine DL <= 20 mg/L (U) [Mass ratio] Urine microalbumin/creatinine mass ratio High 0.0-29.[address] [facility] Comment on above: NO MICROALBUMINURIA 0-29 MG/GCLINICAL MICROALBUMINURIA 30-300 MG/GMACROALBUMINURIA >300 MG/G HbA1c HPLC (Bld) [Mass fract ion]on 04-30-2024 HbA1c (Bld) [Mass fraction] Hemoglobin A1c/Hemoglobin.total in Blood by HPLC [facility] No Panel Informationon 04-30 Bedside Glucose [address] [facility] Office Visiton 03-10-2024 Follow-up visit [id number] Lani Lizama 1950 M Date Provider Department Center 03/10/2024 KEVIN DEMPSEY MARCELINO Armas Family History Problem Relation Age of Onset Heart attack Mother Other Father Other Brother Heart attack Maternal Grandmother Heart attack Maternal Grandfather Family Status - Relation Status Age at Mother Father Brother Maternal Grandmother Maternal Grandfather Level of Service:16[address] [place] OFFICE/OUTPATIENT NEW LOW MDM 30 MINUTES Normal [facility] 30on 02-14-2024 30 The patient is Moder ately Stable - Low risk of patient condition declining or worsening The patient's goals for the shift include get better The clinical goals for the shift include VSS Normal [facility] 30 The patient is Moder ately [...] baseline comfort level Outcome: Progressing Flowsheets (Taken 02/14/2024 0051) Verbalizes/displays adequate comfort level or baseline comfort [...] and behaviors that affect risk of falls [place] fall precautions as indicated by assessment Educate [...] and prevent overall improvement and discharge Normal [facility] BASIC METABOLIC PANELon 11 Anion gap [Moles/Vol] 9 mmol/L Normal 7-20 [facility] Comment on above: Performed By: #### L [id number] ####[facility] ([facility])[address] [place] [address] Calcium [Mass/Vol] 8.4 mg/dL Low 8.6-10.3 [facility] Comment on above: Performed By: #### L [id number] ####[facility] ([facility])[address] [place] [address] Chloride [Moles/Vol] 109 mmol/L High 98-107 [facility] Comment on above: Performed By: #### L [id number] ####[facility] ([facility])[address] [place] [address] CO2 [Moles/Vol] 25 mmol/L Normal 21-31 [facility] Comment on above: Performed By: #### L [id number] ####[facility] ([facility])[address] [place] [address] Creatinine [Mass/Vol] 1.65 mg/dL High 0.70-1.30 [facility] Comment on above: Performed By: #### L [id number] ####[facility] ([facility])[address] [place] [address] GLOMERULAR FILTRATION RATE ML/MIN/1.73 SQ M.PREDICTED 43.8 mL/min/1.73m*2 Low >60.0 [facility] Comment on above: Result Comment: The [facility]???s estimated glomerular filtration rate (eGFR) will [...] of individuals. Performed By: #### L [id number] ####[facility] ([facility])[address] [place] [address] Glucose [Mass/Vol] 118 mg/dL High 70-100 [facility] Comment on above: Performed By: #### L [id number] ####[facility] ([facility])[address] [place] [address] Potassium [Moles/Vol] 4.3 mmol/L Normal 3.5-5.1 [facility] Comment on above: Performed By: #### L [id number] ####[facility] ([facility])[address] [place] [address] Sodium [Moles/Vol] 139 mmol/L Normal 136-145 [facility] Comment on above: Performed By: #### L [id number] ####[facility] ([facility])[address] [place] [address] Urea nitrogen [Mass/Vol] 19 mg/dL Normal 7-[address] [facility] Comment on above: Performed By: #### L [id number] ####[facility] ([facility])[address] [place] [address] UREA NITROGEN/CREATININE (MASS RATIO) IN SER/PLAS 11.[address] [facility] Comment on above: Performed By: #### L [id number] ####[facility] ([facility])[address] [place] [address] CBCon 02-14-2024 Erythrocyte distribution width (RBC) [Ratio] 13.8 % Normal 11.5-15.[address] [facility] Comment on above: Performed By: #### L [id number] #### [facility] ([facility]) [address] [place] [address] ERYTHROCYTE MEAN CORPUSCULAR HEMOGLOBIN CONCENTRATION (G/DL) BY AUTOMATED 32.9 g/dL Normal 32.0-35.[address] [facility] Comment on above: Performed By: #### L [id number] #### [facility] ([facility]) [address] [place] [address] Hematocrit (Bld) [Volume fraction] 38.0 % Low 39.0-55.[address] [facility] Comment on above: Performed By: #### L [id number] #### [facility] ([facility]) [address] [place] [address] Hemoglobin (Bld) [Mass/Vol] 12.5 g/dL Low 13.0-17.[address] [facility] Comment on above: Performed By: #### L [id number] #### [facility] ([facility]) [address] [place] [address] MCH (RBC) [Entitic mass] 30.1 pg Normal 27.0-33.[address] [facility] Comment on above: Performed By: #### L [id number] #### [facility] ([facility]) [address] [place] [address] MCV (RBC) [Entitic vol] 91.6 fL Normal 82.0-98.[address] [facility] Comment on above: Performed By: #### L [id number] #### [facility] ([facility]) [address] [place] [address] PLATELETS (10*3/UL) IN BLOOD AUTOMATED COUNT 176 10*3/uL Normal 150-[address] [facility] Comment on above: Performed By: #### L [id number] #### [facility] ([facility]) [address] [place] [address] RBC (Bld) [#/Vol] 4.15 10*6/uL Low 4.20-5.[address] [facility] Comment on above: Performed By: #### L [id number] #### [facility] ([facility]) [address] [place] [address] WBC (Bld) [#/Vol] 6.88 10*3/uL Normal 4.00-10.[address] [facility] Comment on above: Performed By: #### L [id number] #### [facility] ([facility]) [address] [place] [address] NURSNOTEon 02-14-2024 NURSNOTE Discharge instructio n given , patient verbalized understanding, no follow up questions asked Normal [facility] POCT GLUCOSE METER UNSOLICIT ED RESULTSon 02-14-2024 Glucose [Mass/Vol] 231 mg/dL High 70-105 [facility] Comment on above: Order Comment: Waive d Testing in the ED is performed under the ED CLIA certificate #[id number]. Result Comment: [email or web address] Performed By: #### L [id number] ####[facility] ([facility])[address] [place] [address] Glucose [Mass/Vol] 128 mg/dL High 70-105 [facility] Comment on above: Order Comment: Check anti-Xa level every 6 hours while on heparin infusion, or per protocol. Result Comment: [email or web address] Performed By: #### L [id number] #### [facility] ([facility]) [address] [place] [address] TROPONIN Ion 02-14-2024 Troponin I.cardiac [Mass/Vol] 1.08 ng/mL Critically high 0.00-0.[address] [facility] Comment on above: Result Comment: M-TN EVIOUS CRITICAL RESULT Previous result verified on 02/14/2024 0605 on specimen/case [id number] called with component Troponin I for procedure Troponin I with value 1.69 ng/mL. Performed By: #### L [id number] #### [facility] ([facility]) [address] [place] [address] Troponin I.cardiac [Mass/Vol] 1.69 ng/mL Critically high 0.00-0.[address] [facility] Comment on above: Performed By: #### L [id number] #### [facility] ([facility]) [address] [place] [address] 30on 02-13-2024 30 The patient is Moder ately Stable - Low risk of patient condition declining or worsening The patient's goals for the shift include get better The clinical goals for the shift include VSS Normal [facility] 30 The patient is Moder ately [...] and behaviors that affect risk of falls [place] fall precautions as indicated by assessment Educate [...] and behaviors that affect risk of falls [place] fall precautions as indicated by assessment Educate [...] and prevent overall improvement and discharge Normal [facility] ANTI-XA (HEPARIN LEVEL)on HEPARIN UNFRACTIONATED (U/ML) IN PPP BY CHROMOGENIC METHOD 0.85 IU/mL High 0.3-0.[address] [facility] Comment on above: Order Comment: Check anti-Xa level every 6 hours while on heparin infusion, or per protocol. Result Comment: Rhona roxaban and Apixaban will interfere with the anti Xa assay used to monitor UFH and LMWH. Performed By: #### L [id number] #### [facility] ([facility]) [address] [place] [address] APTTon 02-13-2024 ACTIVATED PARTIAL THROMBOPLASTIN TIME IN PPP BY COAGULATION ASSAY 93.5 Seconds High 25.0-35.[address] [facility] Comment on above: Order Comment: Basel ine aPTT before initiating heparin infusion. Result Comment: Clin ical significance of the APTT is questionable in the presence of heparin. Performed By: #### L [id number] ####[facility] ([facility])[address] [place] [address] B-TYPE NATRIURETIC PEPTIDEon 02-13-2024 Natriuretic peptide B (Bld) [Mass/Vol] 693 pg/mL High 0-[address] [facility] Comment on above: Performed By: #### L [id number] #### [facility] ([facility]) [address] [place] [address] BASIC METABOLIC PANELon 01-30 Anion gap [Moles/Vol] 10 mmol/L Normal 7-20 [facility] Comment on above: Performed By: #### L [id number] #### [facility] ([facility]) [address] [place] [address] Calcium [Mass/Vol] 8.9 mg/dL Normal 8.6-10.3 [facility] Comment on above: Performed By: #### L [id number] #### [facility] ([facility]) [address] [place] [address] Chloride [Moles/Vol] 107 mmol/L Normal 98-107 [facility] Comment on above: Performed By: #### L [id number] #### [facility] ([facility]) [address] [place] [address] CO2 [Moles/Vol] 25 mmol/L Normal 21-31 [facility] Comment on above: Performed By: #### L [id number] #### [facility] ([facility]) [address] [place] [address] Creatinine [Mass/Vol] 1.61 mg/dL High 0.70-1.30 [facility] Comment on above: Performed By: #### L [id number] #### [facility] ([facility]) [address] [place] [address] GLOMERULAR FILTRATION RATE ML/MIN/1.73 SQ M.PREDICTED 45.2 mL/min/1.73m*2 Low >60.0 [facility] Comment on above: Result Comment: The [facility]???s estimated glomerular filtration rate (eGFR) will [...] individuals. Performed By: #### L [id number] #### [facility] ([facility]) [address] [place] [address] Glucose [Mass/Vol] 174 mg/dL High 70-100 [facility] Comment on above: Performed By: #### L [id number] #### [facility] ([facility]) [address] [place] [address] Potassium [Moles/Vol] 4.3 mmol/L Normal 3.5-5.1 [facility] Comment on above: Performed By: #### L [id number] #### [facility] ([facility]) [address] [place] [address] Sodium [Moles/Vol] 138 mmol/L Normal 136-145 [facility] Comment on above: Performed By: #### L [id number] #### [facility] ([facility]) [address] [place] [address] Urea nitrogen [Mass/Vol] 20 mg/dL Normal 7-[address] [facility] Comment on above: Performed By: #### L [id number] #### [facility] ([facility]) [address] [place] [address] UREA NITROGEN/CREATININE (MASS RATIO) IN SER/PLAS 12.[address] [facility] Comment on above: Performed By: #### L [id number] #### [facility] ([facility]) [address] [place] [address] CBC WITH AUTO DIFFERENTIALon 02-13-2024 Basophils (Bld) [#/Vol] 0.05 10*3/uL Normal 0.00-0.[address] [facility] Comment on above: Performed By: #### L [id number] ####[facility] ([facility])[address] [place] [address] Basophils/100 WBC (Bld) 0.7 % Normal 0.0-1.[address] [facility] Comment on above: Performed By: #### L [id number] ####[facility] ([facility])[address] [place] [address] Eosinophils (Bld) [#/Vol] 0.13 10*3/uL Normal 0.00-0.[address] [facility] Comment on above: Performed By: #### L [id number] ####[facility] ([facility])[address] [place] [address] Eosinophils/100 WBC (Bld) 1.8 % Normal 0.0-6.[address] [facility] Comment on above: Performed By: #### L [id number] ####[facility] ([facility])[address] [place] [address] Erythrocyte distribution width (RBC) [Ratio] 13.4 % Normal 11.5-15.[address] [facility] Comment on above: Performed By: #### L [id number] ####[facility] ([facility])[address] [place] [address] ERYTHROCYTE MEAN CORPUSCULAR HEMOGLOBIN CONCENTRATION (G/DL) BY AUTOMATED 34.1 g/dL Normal 32.0-35.[address] [facility] Comment on above: Performed By: #### L [id number] ####[facility] ([facility])[address] [place] [address] Hematocrit (Bld) [Volume fraction] 40.2 % Normal 39.0-55.[address] [facility] Comment on above: Performed By: #### L [id number] ####[facility] ([facility])[address] [place] [address] Hemoglobin (Bld) [Mass/Vol] 13.7 g/dL Normal 13.0-17.[address] [facility] Comment on above: Performed By: #### L [id number] ####[facility] ([facility])[address] [place] [address] Immature granulocytes (Bld) [#/Vol] 0.03 10*3/uL Normal 0.00-0.[address] [facility] Comment on above: Performed By: #### L [id number] ####[facility] ([facility])[address] [place] [address] Immature granulocytes/100 WBC (Bld) 0.4 % Normal 0.0-1.[address] [facility] Comment on above: Performed By: #### L [id number] ####[facility] ([facility])[address] [place] [address] Lymphocytes (Bld) [#/Vol] 1.64 10*3/uL Normal 1.20-4.[address] [facility] Comment on above: Performed By: #### L [id number] ####[facility] ([facility])[address] [place] [address] Lymphocytes/100 WBC (Bld) 22.3 % Normal 20.0-45.[address] [facility] Comment on above: Performed By: #### L [id number] ####[facility] ([facility])[address] [place] [address] MCH (RBC) [Entitic mass] 30.2 pg Normal 27.0-33.[address] [facility] Comment on above: Performed By: #### L [id number] ####[facility] ([facility])[address] [place] [address] MCV (RBC) [Entitic vol] 88.5 fL Normal 82.0-98.[address] [facility] Comment on above: Performed By: #### L [id number] ####[facility] ([facility])[address] [place] [address] Monocytes (Bld) [#/Vol] 0.69 10*3/uL Normal 0.10-1.[address] [facility] Comment on above: Performed By: #### L [id number] ####[facility] ([facility])[address] [place] [address] Monocytes/100 WBC (Bld) 9.4 % Normal 5.0-12.[address] [facility] Comment on above: Performed By: #### L [id number] ####[facility] ([facility])[address] [place] [address] Neutrophils (Bld) [#/Vol] 4.80 10*3/uL Normal 1.60-7.[address] [facility] Comment on above: Performed By: #### L [id number] ####[facility] ([facility])[address] [place] [address] Neutrophils/100 WBC (Bld) 65.4 % Normal 40.0-72.[address] [facility] Comment on above: Performed By: #### L [id number] ####[facility] ([facility])[address] [place] [address] NRBC (PER 100 WBCS) BY AUTOMATED COUNT 0.0 % Normal [address] [facility] Comment on above: Performed By: #### L [id number] ####[facility] ([facility])[address] [place] [address] PLATELETS (10*3/UL) IN BLOOD AUTOMATED COUNT 202 10*3/uL Normal 150-[address] [facility] Comment on above: Performed By: #### L [id number] ####[facility] ([facility])[address] [place] [address] RBC (Bld) [#/Vol] 4.54 10*6/uL Normal 4.20-5.[address] [facility] Comment on above: Performed By: #### L [id number] ####[facility] ([facility])[address] [place] [address] WBC (Bld) [#/Vol] 7.34 10*3/uL Normal 4.00-10.[address] [facility] Comment on above: Performed By: #### L [id number] ####[facility] ([facility])[address] [place] [address] CONSULTon 02-13-2024 CONSULT ----- ----- Attestation signed [...] III who presented as a transferred from [facility] with NSTEMI. Cardiology planning for cath later [...] (H) 08/31 (more content not included)... Normal [facility] CONSULT ----- ----- Attestation signed by Yfn [...] III who presented as a transferred from [facility] with NSTEMI. The patient complained of retrosternal [...] and nitro drip. When he arrived to [facility] he was chest pain-free. Troponin [...] artery stenosis, Coronary artery disease, Diabetes mellitus ([facility]), Hyperlipidemia, Hypertension, PVD (peripheral vascular disease) ([facility]), and Third degree heart block ([facility]). Surgical History He has a past [...] PAIN pantoprazole (Pr (more content not included)... Normal [facility] HPon 02-13-2024 HP H&P reviewed. The [...] were addressed and answered. Jenny Fernandez MD Traffic Police Officer - PGY6 [facility] Pt seen and examined. Agree with above Parul Pena MD Normal [facility] MAGNESIUMon 02-13-2024 Magnesium [Mass/Vol] 2.0 mg/dL Normal 1.9-2.7 [facility] Comment on above: Performed By: #### L [id number] #### [facility] ([facility]) [address] [place] [address] POCT GLUCOSE METER UNSOLICIT ED RESULTSon 02-13-2024 Glucose [Mass/Vol] 200 mg/dL High 70-105 [facility] Comment on above: Order Comment: Waive d Testing in the ED is performed under the ED CLIA certificate #[id number]. Result Comment: roberto macias Performed By: #### L [id number] ####[facility] ([facility])[address] [place] [address] Glucose [Mass/Vol] 187 mg/dL High 70-105 [facility] Comment on above: Order Comment: Check anti-Xa level every 6 hours while on heparin infusion, or per protocol. Result Comment: [email or web address] Performed By: #### L [id number] #### [facility] ([facility]) [address] [place] [address] Glucose [Mass/Vol] 141 mg/dL High 70-105 [facility] Comment on above: Order Comment: Waive d Testing in the ED is performed under the ED CLIA certificate #[id number]. Result Comment: [email or web address] Performed By: #### L [id number] #### [facility] ([facility]) [address] [place] [address] Glucose [Mass/Vol] 166 mg/dL High 70-105 [facility] Comment on above: Order Comment: Basel ine aPTT before initiating heparin infusion. Result Comment: [email or web address] Performed By: #### L [id number] #### [facility] ([facility]) [address] [place] [address] PROTIME-INRon 02-13-2024 INR IN PPP BY COAGULATION ASSAY 1.17 High 0.90-1.[address] [facility] Comment on above: Result Comment: ACCC [...] RANGE. CHEST 1995;108:[id number]. Performed By: #### L [id number] ####[facility] ([employer])[address] [place] [address] PROTHROMBIN TIME (PT) IN PPP BY COAGULATION ASSAY 14.9 Seconds High 12.3-14.[address] [facility] Comment on above: Performed By: #### L [id number] ####[facility] ([facility])[address] [place] [address] TROPONIN Ion 02-13-2024 Troponin I.cardiac [Mass/Vol] 2.02 ng/mL Critically high 0.00-0.[address] [facility] Comment on above: Result Comment: M-TN EVIOUS CRITICAL RESULT Previous result verified on 02/13/2024 0606 on specimen/case [id number] called with component Troponin I for procedure Troponin I with value 3.34 ng/mL. Performed By: #### L [id number] #### [facility] ([employer]) [address] [place] [address] Troponin I.cardiac [Mass/Vol] 2.10 ng/mL Critically high 0.00-0.[address] [facility] Comment on above: Result Comment: M-TN EVIOUS CRITICAL RESULT Previous result verified on 02/13/2024 0606 on specimen/case [id number] called with component Troponin I for procedure Troponin I with value 3.34 ng/mL. Performed By: #### L [id number] #### [facility] ([facility]) [address] [place] [address] Troponin I.cardiac [Mass/Vol] 3.34 ng/mL Critically high 0.00-0.[address] [facility] Comment on above: Result Comment: M-TR OPONIN INITIAL CRITICAL HIGH; RESPUN AND RETESTED Performed By: #### L [id number] #### [facility] ([facility]) [address] [place] [address] Activated partial thrombopla stin time (aPTT) in platelet poor plasma by coagulation aon 02-12-2024 aPTT Coag (PPP) [Time] Activated partial thromboplastin time (aPTT) in platelet poor plasma by coagulation a 22.3-36.[address] [facility] Basophils Auto (Bld) [#/Vol] on 02-12-2024 Basophils (Bld) [#/Vol] Automated basophil count 0.0-0.[address] [facility] Basophils/100 WBC Auto (Bld) on 02-12-2024 Basophils/100 WBC (Bld) Automated basophil % 0.2-2.[address] [facility] Eosinophils/100 WBC Auto (Bl d)on 02-12-2024 Eosinophils/100 WBC (Bld) Automated eosinophil % 0.9-7.[address] [facility] Erythrocyte distribution wid th Auto (RBC) [Ratio]on 02-12-2024 Erythrocyte distribution width (RBC) [Ratio] Erythrocyte distribution width [Ratio] by Automated count 11.0-15.[address] [facility] Estimated glomerular filtrat ion rate (GFR) non- Americanon 02-12-2024 GFR/1.73 sq M.predicted among non-blacks MDRD (S/P/Bld) [Vol rate/Area] Estimated glomerular filtration rate (GFR) non- Low >=60 mL/min/1.7 3m [address] [facility] Hematocrit Auto (Bld) [Volum e fraction]on 02-12-2024 Hematocrit (Bld) [Volume fraction] Hematocrit [Volume Fraction] of Blood by Automated count 42.0-54.[address] [facility] Hemoglobin [Mass/volume] in Bloodon 02-12-2024 Hemoglobin (Bld) [Mass/Vol] Hemoglobin [Mass/volume] in Blood 14.0-18.[address] [facility] INR in Platelet poor plasma by Coagulation assayon 02-12-2024 INR Coag (PPP) [Relative time] INR in Platelet poor plasma by Coagulation assay [facility] Comment on above: DESIRED INR:2.0-3.0 CONDITIONS NOT LISTED BELOW2.5-3.5 FOR PROSTHETIC HEART VALVE REPLACEMENT2.5-3.5 RECURRENT THROMBOSIS Laboratory - Chemistry and C hemistry - challengeon 02-12-2024 Calcium [Mass/Vol] 9.4 mg/dL 8.5-10.1 [facility] Chloride [Moles/Vol] 106 mmol/L 98-107 [facility] CO2 [Moles/Vol] 22.9 mmol/L 21.0-32.0 [facility] Creatinine [Mass/Vol] 1.97 mg/dL High 0.70-1.30 [facility] GFR/1.73 sq M.predicted MDRD (S/P/Bld) [Vol rate/Area] 41 mL/min/{1.73_m2} Low >=60 mL/min/1.7 3m [address] [facility] Glucose [Mass/Vol] 236 mg/dL High 74-106 [facility] Potassium [Moles/Vol] 3.9 mmol/L 3.5-5.1 [facility] Comment on above: SPECIMEN SLIGHTLY HE MOLYZED Sodium [Moles/Vol] 141 mmol/L 136-145 [facility] Urea nitrogen [Mass/Vol] 21.0 mg/dL High 7.0-18.[address] [facility] Urea nitrogen/Creatinine [Mass ratio] 10.7 mg/mg [facility] Laboratory - Hematology and Cell countson 02-12-2024 Immature granulocytes/100 WBC (Bld) 0.5 % 0.0-0.[address] [facility] Leukocytes [#/volume] correc soraya for nucleated erythrocytes in Blood by Automated counon 02-12-2024 WBC corrected for nucl RBC Auto (Bld) [#/Vol] Leukocytes [#/volume] corrected for nucleated erythrocytes in Blood by Automated coun 4.0-11.[address] [facility] Lymphocytes Auto (Bld) [#/Vo l]on 02-12-2024 Lymphocytes (Bld) [#/Vol] Lymphocytes [#/volume] in Blood by Automated count 1.2-3.[address] [facility] Lymphocytes/100 WBC Auto (Bl d)on 02-12-2024 Lymphocytes/100 WBC (Bld) Lymphocytes/100 leukocytes in Blood by Automated count 20.5-60.[address] [facility] MCH Auto (RBC) [Entitic mass ]on 02-12-2024 MCH (RBC) [Entitic mass] MCH [Entitic mass] by Automated count 25.9-34.[address] [facility] MCHC Auto (RBC) [Mass/Vol]on 02-12-2024 MCHC (RBC) [Mass/Vol] MCHC [Mass/volume] by Automated count 29.9-35.[address] [facility] MCV Auto (RBC) [Entitic vol] on 02-12-2024 MCV (RBC) [Entitic vol] MCV [Entitic volume] by Automated count 80.0-94.[address] [facility] Monocytes Auto (Bld) [#/Vol] on 02-12-2024 Monocytes (Bld) [#/Vol] Automated blood monocyte count 0.3-0.[address] [facility] Monocytes/100 WBC Auto (Bld) on 02-12-2024 Monocytes/100 WBC (Bld) Automated monocyte % 1.7-12.[address] [facility] Neutrophils Auto (Bld) [#/Vo l]on 02-12-2024 Neutrophils (Bld) [#/Vol] Neutrophils [#/volume] in Blood by Automated count 1.4-6.[address] [facility] Neutrophils/100 WBC Auto (Bl d)on 02-12-2024 Neutrophils/100 WBC (Bld) Automated neutrophil % 43.0-75.[address] [facility] No Panel Informationon 02-11 Troponin I High Sensitivity 85.0 pg/mL Critically high 4.0-76.[address] [facility] Comment on above: RESULTS CALLED [...] Eosinophils # (Auto) 0.2 10 3/uL 0.0-0.7 [facility] Immature Granulocyte # (Auto) 0.04 10 3/uL High 0.00-0.[address] [facility] Platelet mean volume Auto (B ld) [Entitic vol]on 02-12-2024 Platelet mean volume (Bld) [Entitic vol] Platelet mean volume [Entitic volume] in Blood by Automated count 9.5-13.[address] [facility] Platelets Auto (Bld) [#/Vol] on 02-12-2024 Platelets (Bld) [#/Vol] Platelets [#/volume] in Blood by Automated count 150-[address] [facility] Prothrombin time (PT)on 01-30 PT Coag (PPP) [Time] Prothrombin time (PT) 9.0- 11.[address] [facility] RBC Auto (Bld) [#/Vol]on RBC (Bld) [#/Vol] Erythrocytes [#/volu me] in Blood by Automated count 4.70-6.[address] [facility] Serum or plasma anion gap de terminationon 02-12-2024 Anion gap [Moles/Vol] Serum or plasma an ion gap determination [facility] Erythrocyte distribution wid th Auto (RBC) [Ratio]on 12-30-2023 Erythrocyte distribution width (RBC) [Ratio] 14.3 % 11.0-15.[address] [facility] Estimated glomerular filtrat ion rate (GFR) non- Americanon 12-30-2023 GFR/1.73 sq M.predicted among non-blacks MDRD (S/P/Bld) [Vol rate/Area] 31 mL/min/{1.73_m2} Low >=[address] [facility] Hematocrit Auto (Bld) [Volum e fraction]on 12-30-2023 Hematocrit (Bld) [Volume fraction] 45.2 % 42.0-54.[address] [facility] Hemoglobin [Mass/volume] in Bloodon 12-30-2023 Hemoglobin (Bld) [Mass/Vol] 14.8 g/dL 14.0-18.[address] [facility] Laboratory - Chemistry and C hemistry - challengeon 12-30-2023 Albumin [Mass/Vol] 3.8 g/dL 3.4-5.0 [facility] Calcium [Mass/Vol] 9.9 mg/dL 8.5-10.1 [facility] Chloride [Moles/Vol] 103 mmol/L 98-107 [facility] CO2 [Moles/Vol] 27.9 mmol/L 21.0-32.0 [facility] Creatinine [Mass/Vol] 2.10 mg/dL High 0.70-1.30 [facility] GFR/1.73 sq M.predicted MDRD (S/P/Bld) [Vol rate/Area] 38 mL/min/{1.73_m2} Low >=[address] [facility] Glucose [Mass/Vol] 207 mg/dL High 74-106 [facility] Magnesium [Mass/Vol] 2.1 mg/dL 1.8-2.4 [facility] Potassium [Moles/Vol] 4.7 mmol/L 3.5-5.1 [facility] Sodium [Moles/Vol] 137 mmol/L 136-145 [facility] Urate [Mass/Vol] 4.1 mg/dL 3.5-7.2 [facility] Urea nitrogen [Mass/Vol] 29.0 mg/dL High 7.0-18.[address] [facility] Urea nitrogen/Creatinine [Mass ratio] 13.8 mg/mg [facility] Laboratory - Urinalysison Protein (U) [Mass/Vol] 26.9 mg/dL High <=11.9 [facility] Leukocytes [#/volume] correc soraya for nucleated erythrocytes in Blood by Automated counon 12-30-2023 WBC corrected for nucl RBC Auto (Bld) [#/Vol] 8.7 10 3/uL 4.0-11.[address] [facility] MCH Auto (RBC) [Entitic mass ]on 12-30-2023 MCH (RBC) [Entitic mass] 30.0 pg 25.9-34.[address] [facility] MCHC Auto (RBC) [Mass/Vol]on 12-30-2023 MCHC (RBC) [Mass/Vol] 32.7 g/dL 29.9-35.2 [facility] MCV Auto (RBC) [Entitic vol] on 12-30-2023 MCV (RBC) [Entitic vol] 91.7 fL 80.0-94.[address] [facility] No Panel Informationon 12-29 25-Hydroxy Vitamin D Total 47.5 ng/mL [facility] Comment on above: <20 ng/mL Vit D defi cient20-<30 ng/mL Vit D qkcqqzswtdig17-772 ng/mL Vit D sufficient>100 ng/mL Potential Toxicity Parathyroid Hormone (Intact) 27 pg/mL 15-[address] [facility] Comment on above: Performed at: [facility] [employer] [id number] Director: Kwaku Park PhD, Phone: [phone] Phosphorus Level 3.7 mg/dL 2.6-4.7 [facility] Urine Random Creatinine 85.11 mg/dL 20.00-300. [address] [facility] Platelet mean volume Auto (B ld) [Entitic vol]on 12-30-2023 Platelet mean volume (Bld) [Entitic vol] 9.3 fL Low 9.5-13.[address] [facility] Platelets Auto (Bld) [#/Vol] on 12-30-2023 Platelets (Bld) [#/Vol] 193 10 3/uL 150-[address] [facility] RBC Auto (Bld) [#/Vol]on RBC (Bld) [#/Vol] 4.93 10 6/uL 4.70-6.10 [facility] Serum or plasma anion gap de terminationon 12-30-2023 Anion gap [Moles/Vol] 10.8 mmol/L [facility] Urine protein/creatinine rat ioon 12-30-2023 Protein/Creatinine (U) [Ratio] 0.[address] [facility] HbA1c HPLC (Bld) [Mass fract ion]on 10-17-2023 HbA1c (Bld) [Mass fraction] 7.5 % [facility] No Panel Informationon 10-16 Bedside Glucose [address] 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 30on 09-28-2023 30 The patient is [...] to stop on the way home. Normal [facility] BASIC METABOLIC PANELon 08-31 Anion gap [Moles/Vol] 13 mmol/L Normal 7-20 [facility] Comment on above: Performed By: #### L [id number] ####[facility] ([facility]ER)[address] [place] [address] Calcium [Mass/Vol] 8.8 mg/dL Normal 8.6-10.3 [facility] Comment on above: Performed By: #### L [id number] ####[facility] ([facility])[address] [place] [address] Chloride [Moles/Vol] 104 mmol/L Normal 98-107 [facility] Comment on above: Performed By: #### L [id number] ####[facility] ([facility])[address] [place] [address] CO2 [Moles/Vol] 24 mmol/L Normal 21-31 [facility] Comment on above: Performed By: #### L [id number] ####[facility] ([facility])[address] [address] Creatinine [Mass/Vol] 1.59 mg/dL High 0.70-1.30 [facility] Comment on above: Performed By: #### L [id number] ####[facility] ([facility])[address] [place] [address] GLOMERULAR FILTRATION RATE ML/MIN/1.73 SQ M.PREDICTED 46.1 mL/min/1.73m*2 Low >60.0 [facility] Comment on above: Result Comment: The [facility]???s estimated glomerular filtration rate (eGFR) will [...] of individuals. Performed By: #### L [id number] ####[facility] ([facility])[address] [place] [address] Glucose [Mass/Vol] 188 mg/dL High 70-100 [facility] Comment on above: Performed By: #### L [id number] ####[facility] (BEAKER)[address] [place] [address] Potassium [Moles/Vol] 4.1 mmol/L Normal 3.5-5.1 Uni [facility] Comment on above: Performed By: #### L [id number] ####[facility] (BEAKER)[address] [place] [address] Sodium [Moles/Vol] 137 mmol/L Normal 136-145 [facility] Comment on above: Performed By: #### L [id number] ####[facility] (BEAKER)[address] [place] [address] Urea nitrogen [Mass/Vol] 26 mg/dL High 7-[address] [facility] Comment on above: Performed By: #### L [id number] ####[facility] (BEAKER)[address] [place] [address] UREA NITROGEN/CREATININE (MASS RATIO) IN SER/PLAS 16.[address] [facility] Comment on above: Performed By: #### L [id number] ####[facility] (BEAKER)[address] [place] [address] CBCon 09-28-2023 Erythrocyte distribution width (RBC) [Ratio] 14.2 % Normal 11.5-15.[address] [facility] Comment on above: Performed By: #### L [id number] #### [facility] ([facility]ER) [address] [place] [address] ERYTHROCYTE MEAN CORPUSCULAR HEMOGLOBIN CONCENTRATION (G/DL) BY AUTOMATED 33.2 g/dL Normal 32.0-35.[address] [facility] Comment on above: Performed By: #### L [id number] #### [facility] (BEAKER) [address] [place] [address] Hematocrit (Bld) [Volume fraction] 43.4 % Normal 39.0-55.[address] [facility] Comment on above: Performed By: #### L [id number] #### [facility] ([facility]ER) [address] [place] [address] Hemoglobin (Bld) [Mass/Vol] 14.4 g/dL Normal 13.0-17.[address] [facility] Comment on above: Performed By: #### L [id number] #### [facility] ([facility]) [address] [place] [address] MCH (RBC) [Entitic mass] 28.4 pg Normal 27.0-33.[address] [facility] Comment on above: Performed By: #### L [id number] #### [facility] ([facility]) [address] [place] [address] MCV (RBC) [Entitic vol] 85.6 fL Normal 82.0-98.[address] [facility] Comment on above: Performed By: #### L [id number] #### [facility] ([facility]) [address] [place] [address] PLATELETS (10*3/UL) IN BLOOD AUTOMATED COUNT 159 10*3/uL Normal 150-[address] [facility] Comment on above: Performed By: #### L [id number] #### [facility] ([facility]) [address] [place] [address] RBC (Bld) [#/Vol] 5.07 10*6/uL Normal 4.20-5.[address] [facility] Comment on above: Performed By: #### L [id number] #### [facility] ([facility]) [address] [place] [address] WBC (Bld) [#/Vol] 7.88 10*3/uL Normal 4.00-10.[address] [facility] Comment on above: Performed By: #### L [id number] #### [facility] ([facility]) [address] [place] [address] POCT GLUCOSE METER UNSOLICIT ED RESULTSon 09-28-2023 Glucose [Mass/Vol] 176 mg/dL High 70-105 [facility] Comment on above: Order Comment: Waive d Testing in the ED is performed under the ED CLIA certificate #[id number]. Result Comment: [email or web address] Performed By: #### L [id number] ####[facility] (RACHEL)[address] [place] [address] 30on 09-27-2023 30 Problem: Pain - Adul [...] the shift include stable VS, cardiac cath [facility] 30 Daily Case Managemen t Update Multidisciplinary rounds have been completed. Barriers to Discharge: Patient is a direct admitted from [facility], due chest pain and elevated troponin. Tx [...] Consultation Consultation and Management 09/26/[address] [facility] 30 The patient is Moder ately [...] and maintained or improved Outcome: Progressing Normal [facility] ANTI-XA (HEPARIN LEVEL)on HEPARIN UNFRACTIONATED (U/ML) IN PPP BY CHROMOGENIC METHOD 0.47 IU/mL Normal 0.3-0.[address] [facility] Comment on above: Order Comment: Check anti-Xa level every 6 hours while on heparin infusion, or per protocol. Result Comment: Rhona roxaban and Apixaban will interfere with the anti Xa assay used to monitor UFH and LMWH. Performed By: #### L [id number] ####[facility] [place] [address] HEPARIN UNFRACTIONATED (U/ML) IN PPP BY CHROMOGENIC METHOD 0.55 IU/mL Normal 0.3-0.[address] [facility] Comment on above: Order Comment: Check anti-Xa level every 6 hours while on heparin infusion, or per protocol. Result Comment: Mertzon roxaban and Apixaban will interfere with the anti Xa assay used to monitor UFH and LMWH. Performed By: #### L [id number] #### [facility] ([facility]ER) [address] [place] [address] BASIC METABOLIC PANELon 08-31 Anion gap [Moles/Vol] 16 mmol/L Normal 7-20 [facility] Comment on above: Performed By: #### L [id number] #### [facility] ([facility]ER) [address] [place] [address] Calcium [Mass/Vol] 9.2 mg/dL Normal 8.6-10.3 [facility] Comment on above: Performed By: #### L [id number] #### [facility] ([facility]ER) [address] [place] [address] Chloride [Moles/Vol] 105 mmol/L Normal 98-107 [facility] Comment on above: Performed By: #### L [id number] #### [facility] ([facility]ER) [address] [place] [address] CO2 [Moles/Vol] 23 mmol/L Normal 21-31 [facility] Comment on above: Performed By: #### L [id number] #### [facility] ([facility]) [address] [place] [address] Creatinine [Mass/Vol] 1.56 mg/dL High 0.70-1.30 [facility] Comment on above: Performed By: #### L [id number] #### [facility] ([facility]) [address] [place] [address] GLOMERULAR FILTRATION RATE ML/MIN/1.73 SQ M.PREDICTED 47.2 mL/min/1.73m*2 Low >60.0 [facility] Comment on above: Result Comment: The [facility]???s estimated glomerular filtration rate (eGFR) will [...] individuals. Performed By: #### L [id number] #### [facility] ([facility]) [address] [place] [address] Glucose [Mass/Vol] 166 mg/dL High 70-100 [facility] Comment on above: Performed By: #### L [id number] #### [facility] ([facility]) [address] [place] [address] Potassium [Moles/Vol] 4.3 mmol/L Normal 3.5-5.1 [facility] Comment on above: Performed By: #### L [id number] #### [facility] ([facility]) [address] [place] [address] Sodium [Moles/Vol] 140 mmol/L Normal 136-145 [facility] Comment on above: Performed By: #### L [id number] #### [facility] ([facility]) [address] [place] [address] Urea nitrogen [Mass/Vol] 26 mg/dL High 7-[address] [facility] Comment on above: Performed By: #### L [id number] #### [facility] ([facility]) [address] [place] [address] UREA NITROGEN/CREATININE (MASS RATIO) IN SER/PLAS 16.[address] [facility] Comment on above: Performed By: #### L [id number] #### [facility] ([facility]) [address] [place] [address] CBCon 09-27-2023 Erythrocyte distribution width (RBC) [Ratio] 14.4 % Normal 11.5-15.[address] [facility] Comment on above: Performed By: #### L [id number] ####[facility] ([facility])[address] [place] [address] ERYTHROCYTE MEAN CORPUSCULAR HEMOGLOBIN CONCENTRATION (G/DL) BY AUTOMATED 33.1 g/dL Normal 32.0-35.[address] [facility] Comment on above: Performed By: #### L [id number] ####[facility] ([facility])[address] [place] [address] Hematocrit (Bld) [Volume fraction] 46.2 % Normal 39.0-55.[address] [facility] Comment on above: Performed By: #### L [id number] ####[facility] ([facility])[address] [place] [address] Hemoglobin (Bld) [Mass/Vol] 15.3 g/dL Normal 13.0-17.[address] [facility] Comment on above: Performed By: #### L [id number] ####[facility] ([facility])[address] [place] [address] MCH (RBC) [Entitic mass] 28.7 pg Normal 27.0-33.[address] [facility] Comment on above: Performed By: #### L [id number] ####[facility] [place] [address] MCV (RBC) [Entitic vol] 86.7 fL Normal 82.0-98.[address] [facility] Comment on above: Performed By: #### L [id number] ####[facility] ([facility])[address] [place] [address] PLATELETS (10*3/UL) IN BLOOD AUTOMATED COUNT 158 10*3/uL Normal 150-[address] [facility] Comment on above: Performed By: #### L [id number] ####[facility] ([facility])[address] [place] [address] RBC (Bld) [#/Vol] 5.33 10*6/uL Normal 4.20-5.[address] [facility] Comment on above: Performed By: #### L [id number] ####[facility] ([facility])[address] [place] [address] WBC (Bld) [#/Vol] 7.95 10*3/uL Normal 4.00-10.[address] [facility] Comment on above: Performed By: #### L [id number] ####[facility] ([facility])[address] [place] [address] CONSULTon 09-27-2023 CONSULT Cardiology Consult N rabia [...] with elevated troponin consistent with non-ST elevation OR. The patient has known history of coronary [...] will try to introduce Andrew Fierro MD, [facility] REASON FOR CONSULT Reason for Consult: nstemi SUBJECTIVE HPI: Lani Lizama is a 72 y/o male with a significant PMHx for HFpEF (NYHA class 3), coronary artery disease [s/p 5 vessel CABG (patient reports CABG performed in 1995), 7 stents with most recent cath in Dec 2022], DM2, hyperlipidemia, peripheral vascular disease, 3rd degree heart block (s/p BiV SENIOR BIOINFORMATICS SCIENTIST-D) that presented to outside hospital w/ c/o chest pain that radiated to left arm and jaw. Pain was described as centrally-located and pressure-like, and unrelieved by Nitroglycerin x3. Patient started on nitroglycerin drip which provided relief. Initial high sensitivity troponin was unremarkable, but repeat was elevated (2962). He was started on heparin and transferred to [facility] for further evaluation. We were [...] meals insulin dete (more content not included)... [facility] HPon 09-27-2023 HP H&P reviewed. The jaron mark was interviewed and examined. 72 y/o male with a significant PMHx for HFpEF (NYHA class 3), coronary artery disease [s/p 5 vessel CABG (patient reports CABG performed in 1995), 7 stents with most recent cath in Dec 2022 with patent grafts x4], DM2, hyperlipidemia, peripheral vascular disease, 3rd degree heart block (s/p BiV SENIOR BIOINFORMATICS SCIENTIST-D) that presented to outside hospital w/ c/o chest pain found to have NSTEM (trop peak at 4.2) Will proceed with coronary and grafts angiogram for further assessment. Procedure's details, risks and benefits discussed with the patient and he's agreeable. [facility] LIPID PANELon 09-27-2023 CHOL/HDL 3.5 mg/dL Normal [facility] Comment on above: Performed By: #### L [id number] ####[facility] [place] [address] Cholesterol [Mass/Vol] 108 mg/dL Low 120-200 [facility] Comment on above: Performed By: #### L [id number] ####[facility] [place] [address] Magnesium [Mass/Vol] 148 mg/dL Normal 40-149 [facility] Comment on above: Result Comment: TRIG LYCERIDE REFERENCE RANGE: 20 YEARS AND OLDER CARDIOVASCULAR RISK LESS THAN 150 mg/dL LOW RISK 150 TO 199 mg/dL BORDERLINE RISK 200 mg/dL AND GREATER HIGH RISK Performed By: #### L [id number] ####[facility] ([facility] [place] [address] Magnesium [Mass/Vol] 47 mg/dL Normal 0-160 [facility] Comment on above: Performed By: #### L [id number] ####[facility] (BEAKER)[address] [place] [address] Magnesium [Mass/Vol] 31 mg/dL Normal 23-92 [facility] Comment on above: Performed By: #### L [id number] ####[facility] (BEAKER)[address] [place] [address] NON HDL CHOL. (LDL+VLDL) [address] [facility] Comment on above: Performed By: #### L [id number] ####[facility] (BEAKER)[address] [place] [address] TOTAL VLDL-C 30 mg/dL Normal 0-40 [facility] Comment on above: Performed By: #### L [id number] ####[facility] (BEAKER)[address] [place] [place] [address] POCT GLUCOSE METER UNSOLICIT ED RESULTSon 09-27-2023 Glucose [Mass/Vol] 299 mg/dL High 70-105 [facility] Comment on above: Order Comment: Waive d Testing in the ED is performed under the ED CLIA certificate #[id number]. Result Comment: roberto macias Performed By: #### L [id number] ####[facility] [place] [address] Glucose [Mass/Vol] 140 mg/dL High 70-105 [facility] Comment on above: Order Comment: Waive d Testing in the ED is performed under the ED CLIA certificate #[id number]. Result Comment: [email or web address] Performed By: #### L [id number] ####[facility] ([facility])[address] [place] [address] Glucose [Mass/Vol] 193 mg/dL High 70-105 [facility] Comment on above: Order Comment: Waive d Testing in the ED is performed under the ED CLIA certificate #[id number]. Result Comment: [email or web address] [email or web address] Performed By: #### L [id number] ####[facility] ([facility])[address] [place] [address] Glucose [Mass/Vol] 184 mg/dL High 70-105 [facility] Comment on above: Order Comment: Waive d Testing in the ED is performed under the ED CLIA certificate #[id number]. Result Comment: [email or web address] Performed By: #### L [id number] #### [facility] ([facility]) [address] [place] [address] TROPONIN Ion 09-27-2023 Troponin I.cardiac [Mass/Vol] 3.05 ng/mL Critically high 0.00-0.[address] [facility] Comment on above: Result Comment: M-TN EVIOUS CRITICAL RESULT Previous result verified on 09/27/2023 0117 on specimen/case [id number] called with component Troponin I for procedure Troponin I with value 3.51 ng/mL. Performed By: #### L [id number] ####[facility] ([facility])[address] [place] [address] 30on 09-26-2023 30 The patient is Moder ately Stable - Low risk of patient condition declining or worsening The patient's goals for the shift include Comfort/Rest The clinical goals for the shift include stable vital signs Normal [facility] ANTI-XA (HEPARIN LEVEL)on HEPARIN UNFRACTIONATED (U/ML) IN PPP BY CHROMOGENIC METHOD 0.82 IU/mL High 0.3-0.[address] [facility] Comment on above: Order Comment: Check anti-Xa level every 6 hours while on heparin infusion, or per protocol. Result Comment: Mertzon roxaban and Apixaban will interfere with the anti Xa assay used to monitor UFH and LMWH. Performed By: #### L [id number] #### [facility] ([facility]) [address] [place] [address] APTTon 09-26-2023 ACTIVATED PARTIAL THROMBOPLASTIN TIME IN PPP BY COAGULATION ASSAY 34.7 Seconds Normal 25.0-35.[address] [facility] Comment on above: Order Comment: Basel ine aPTT before initiating heparin infusion. Result Comment: Clin ical significance of the APTT is questionable in the presence of heparin. Performed By: #### L [id number] #### [facility] ([facility]) [address] [place] [address] Activated partial thrombopla stin time (aPTT) in platelet poor plasma by coagulation aon 09-26-2023 aPTT Coag (PPP) [Time] 28.8 s 22.3-36.2 [facility] Basophils Auto (Bld) [#/Vol] on 09-26-2023 Basophils (Bld) [#/Vol] 0.1 10 3/uL 0.0-0.[address] [facility] Basophils/100 WBC Auto (Bld) on 09-26-2023 Basophils/100 WBC (Bld) 0.6 % 0.2-2.[address] [facility] CBCon 09-26-2023 Erythrocyte distribution width (RBC) [Ratio] 14.3 % Normal 11.5-15.[address] [facility] Comment on above: Performed By: #### L [id number] #### [facility] ([facility]) [address] [place] [address] ERYTHROCYTE MEAN CORPUSCULAR HEMOGLOBIN CONCENTRATION (G/DL) BY AUTOMATED 33.1 g/dL Normal 32.0-35.[address] [facility] Comment on above: Performed By: #### L [id number] #### [facility] (BEAKER) [address] [place] [address] Hematocrit (Bld) [Volume fraction] 48.7 % Normal 39.0-55.[address] [facility] Comment on above: Performed By: #### L [id number] #### [facility] (BEAKER) [address] [place] [address] Hemoglobin (Bld) [Mass/Vol] 16.1 g/dL Normal 13.0-17.[address] [facility] Comment on above: Performed By: #### L [id number] #### [facility] (BEAKER) [address] [place] [address] MCH (RBC) [Entitic mass] 28.8 pg Normal 27.0-33.[address] [facility] Comment on above: Performed By: #### L [id number] #### [facility] (BEAKER) [address] [place] [address] MCV (RBC) [Entitic vol] 87.0 fL Normal 82.0-98.[address] [facility] Comment on above: Performed By: #### L [id number] #### [facility] (BEAKER) [address] [place] [address] PLATELETS (10*3/UL) IN BLOOD AUTOMATED COUNT 170 10*3/uL Normal 150-[address] [facility] Comment on above: Performed By: #### L [id number] #### [facility] (BEAKER) [address] [place] [address] RBC (Bld) [#/Vol] 5.60 10*6/uL Normal 4.20-5.[address] [facility] Comment on above: Performed By: #### L [id number] #### [facility] ([facility]) [address] [place] [address] WBC (Bld) [#/Vol] 7.75 10*3/uL Normal 4.00-10.[address] [facility] Comment on above: Performed By: #### L [id number] #### [facility] ([facility]) [address] [place] [address] COMPREHENSIVE METABOLIC PANE Mike 09-26-2023 Albumin [Mass/Vol] 4.3 g/dL Normal 3.5-5.7 [facility] Comment on above: Performed By: #### L [id number] #### [facility] ([facility]) [address] [place] [address] ALP [Catalytic activity/Vol] 100 U/L Normal 34-[address] [facility] Comment on above: Performed By: #### L [id number] #### [facility] ([facility]) [address] [place] [address] ALT [Catalytic activity/Vol] 20 U/L Normal 7-[address] [facility] Comment on above: Performed By: #### L [id number] #### [facility] ([facility]) [address] [place] [address] Anion gap [Moles/Vol] 15 mmol/L Normal 7-20 [facility] Comment on above: Performed By: #### L [id number] #### [facility] ([facility]) [address] [place] [address] AST [Catalytic activity/Vol] 50 U/L High 13-[address] [facility] Comment on above: Performed By: #### L [id number] #### [facility] ([facility]) [address] [place] [address] Bilirubin [Mass/Vol] 1.1 mg/dL High 0.3-1.0 [facility] Comment on above: Performed By: #### L [id number] #### [facility] [address] [place] [address] Calcium [Mass/Vol] 9.4 mg/dL Normal 8.6-10.3 [facility] Comment on above: Performed By: #### L [id number] #### [facility] ([facility]) [address] [place] [address] Chloride [Moles/Vol] 104 mmol/L Normal 98-107 [facility] Comment on above: Performed By: #### L [id number] #### [facility] [address] [place] [address] CO2 [Moles/Vol] 26 mmol/L Normal 21-31 [facility] Comment on above: Performed By: #### L [id number] #### [facility] ([facility]) [address] [place] [address] Creatinine [Mass/Vol] 1.45 mg/dL High 0.70-1.30 [facility] Comment on above: Performed By: #### L [id number] #### [facility] ([facility]) [address] [place] [address] GLOMERULAR FILTRATION RATE ML/MIN/1.73 SQ M.PREDICTED 51.5 mL/min/1.73m*2 Low >60.0 [facility] Comment on above: Result Comment: The [facility]???s estimated glomerular filtration rate (eGFR) will [...] individuals. Performed By: #### L [id number] #### [facility] [address] [place] [address] Glucose [Mass/Vol] 141 mg/dL High 70-100 [facility] Comment on above: Performed By: #### L [id number] #### [facility] [address] [place] [address] Potassium [Moles/Vol] 4.2 mmol/L Normal 3.5-5.1 [facility] Comment on above: Performed By: #### L [id number] #### [facility] ([facility]) [address] [place] [address] Protein [Mass/Vol] 7.4 g/dL Normal 6.0-8.3 [facility] Comment on above: Performed By: #### L [id number] #### [facility] ([facility]) [address] [place] [address] Sodium [Moles/Vol] 141 mmol/L Normal 136-145 [facility] Comment on above: Performed By: #### L [id number] #### [facility] ([facility]) [address] [place] [address] Urea nitrogen [Mass/Vol] 24 mg/dL Normal 7-[address] [facility] Comment on above: Performed By: #### L [id number] #### [facility] ([facility]) [address] [place] [address] UREA NITROGEN/CREATININE (MASS RATIO) IN SER/PLAS 16.[address] [facility] Comment on above: Performed By: #### L [id number] #### [facility] ([facility]) [address] [place] [address] Eosinophils/100 WBC Auto (Bl d)on 09-26-2023 Eosinophils/100 WBC (Bld) 2.4 % 0.9-7.[address] [facility] Erythrocyte distribution wid th Auto (RBC) [Ratio]on 09-26-2023 Erythrocyte distribution width (RBC) [Ratio] 14.3 % 11.0-15.[address] [facility] Estimated glomerular filtrat ion rate (GFR) non- Americanon 09-26-2023 GFR/1.73 sq M.predicted among non-blacks MDRD (S/P/Bld) [Vol rate/Area] 39 mL/min/{1.73_m2} Low >=[address] [facility] Globulin Calc (S) [Mass/Vol] on 09-26-2023 Globulin (S) [Mass/Vol] 4.0 g/dL [facility] HPon 09-26-2023 History Of Present Illness Lani Lizama is a 72 y.o. male presenting with patient is a 72-year-old gentleman with history of coronary atherosclerosisChest pain. 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 Patient woke up with chest pain around [...] wasstarted on heparin and was transferred to [facility] for further cares. Creatinine was [...] artery stenosis, Coronary artery disease, Diabetes mellitus ([facility]), Hyperlipidemia, Hypertension, PVD (peripheral vascular disease) ([facility]), and Third degree heart block ([facility]). Surgical History He has a past [...] obtained and is negative except per the [facility] Last Recorded Vitals Visit Vitals BP 134/78 (BP Location: Right arm, Patient Position: Sitting) Pulse 83 Temp 36.7 ???C (98.1 ???F) (Temporal) Resp 19 Ht 1.702 m (5' 7 ) Wt 79.9 kg (176 lb 3.2 oz) BMI 27.60 kg/m??? Smoking Status Former BSA 1.94 m??? GENERAL: The patient is well developed and nontoxic (more content not included)... Normal [facility] Hematocrit Auto (Bld) [Volum e fraction]on 09-26-2023 Hematocrit (Bld) [Volume fraction] 49.4 % 42.0-54.[address] [facility] Hemoglobin [Mass/volume] in Bloodon 09-26-2023 Hemoglobin (Bld) [Mass/Vol] 16.0 g/dL 14.0-18.[address] [facility] INR in Platelet poor plasma by Coagulation assayon 09-26-2023 INR Coag (PPP) [Relative time] 0.99 {INR} [facility] Comment on above: DESIRED INR:2.0-3.0 CONDITIONS NOT LISTED BELOW2.5-3.5 FOR PROSTHETIC HEART VALVE REPLACEMENT2.5-3.5 RECURRENT THROMBOSIS LACTIC ACID WITH 4 HOUR REFL EXon 09-26-2023 LACTATE (MMOL/L) IN SER/PLAS 1.1 mmol/L Normal 0.5-2.[address] [facility] Comment on above: Performed By: #### L [id number] #### [facility] ([facility]) [address] [place] [address] Laboratory - Chemistry and C hemistry - challengeon 09-26-2023 Albumin [Mass/Vol] 4.1 g/dL 3.4-5.0 [facility] ALP [Catalytic activity/Vol] 146 U/L High 46-[address] [facility] ALT [Catalytic activity/Vol] 32 U/L 16-[address] [facility] AST [Catalytic activity/Vol] 26 U/L 15-[address] [facility] Bilirubin [Mass/Vol] 0.7 mg/dL 0.2-1.0 [facility] Calcium [Mass/Vol] 9.2 mg/dL 8.5-10.1 [facility] Chloride [Moles/Vol] 104 mmol/L 98-107 [facility] CO2 [Moles/Vol] 24.8 mmol/L 21.0-32.0 [facility] Creatinine [Mass/Vol] 1.72 mg/dL High 0.70-1.30 [facility] GFR/1.73 sq M.predicted MDRD (S/P/Bld) [Vol rate/Area] 48 mL/min/{1.73_m2} Low >=[address] [facility] Glucose [Mass/Vol] 206 mg/dL High 74-106 [facility] Potassium [Moles/Vol] 4.2 mmol/L 3.5-5.1 [facility] Protein [Mass/Vol] 8.1 g/dL 6.4-8.2 [facility] Sodium [Moles/Vol] 141 mmol/L 136-145 [facility] Urea nitrogen [Mass/Vol] 26.0 mg/dL High 7.0-18.[address] [facility] Urea nitrogen/Creatinine [Mass ratio] 15.1 mg/mg [facility] Laboratory - Hematology and Cell countson 09-26-2023 Immature granulocytes/100 WBC (Bld) 0.3 % 0.0-0.[address] [facility] Leukocytes [#/volume] correc soraya for nucleated erythrocytes in Blood by Automated counon 09-26-2023 WBC corrected for nucl RBC Auto (Bld) [#/Vol] 10.5 10 3/uL 4.0-11.[address] [facility] Lymphocytes Auto (Bld) [#/Vo l]on 09-26-2023 Lymphocytes (Bld) [#/Vol] 2.0 10 3/uL 1.2-3.[address] [facility] Lymphocytes/100 WBC Auto (Bl d)on 09-26-2023 Lymphocytes/100 WBC (Bld) 18.7 % Low 20.5-60.[address] [facility] MCH Auto (RBC) [Entitic mass ]on 09-26-2023 MCH (RBC) [Entitic mass] 28.4 pg 25.9-34.[address] [facility] MCHC Auto (RBC) [Mass/Vol]on 09-26-2023 MCHC (RBC) [Mass/Vol] 32.4 g/dL 29.9-35.2 [facility] MCV Auto (RBC) [Entitic vol] on 09-26-2023 MCV (RBC) [Entitic vol] 87.7 fL 80.0-94.[address] [facility] Monocytes Auto (Bld) [#/Vol] on 09-26-2023 Monocytes (Bld) [#/Vol] 0.8 10 3/uL 0.3-0.[address] [facility] Monocytes/100 WBC Auto (Bld) on 09-26-2023 Monocytes/100 WBC (Bld) 7.3 % 1.7-12.[address] [facility] Neutrophils Auto (Bld) [#/Vo l]on 09-26-2023 Neutrophils (Bld) [#/Vol] 7.4 10 3/uL High 1.4-6.[address] [facility] Neutrophils/100 WBC Auto (Bl d)on 09-26-2023 Neutrophils/100 WBC (Bld) 70.7 % 43.0-75.[address] [facility] No Panel Informationon 09-25 Troponin I High Sensitivity 8614.2 pg/mL High 4.0-76.[address] [facility] Comment on above: RESULTS CALLED [...] Eosinophils # (Auto) 0.3 10 3/uL 0.0-0.7 [facility] Immature Granulocyte # (Auto) 0.03 10 3/uL 0.00-0.[address] [facility] POCT GLUCOSE METER UNSOLICIT ED RESULTSon 09-26-2023 Glucose [Mass/Vol] 286 mg/dL High 70-105 [facility] Comment on above: Order Comment: Waive d Testing in the ED is performed under the ED CLIA certificate #[id number]. Result Comment: roberto macias Performed By: #### L [id number] ####[facility] ([facility]AKER)[address] [place] [address] Glucose [Mass/Vol] 151 mg/dL High 70-105 [facility] Comment on above: Order Comment: Waive d Testing in the ED is performed under the ED CLIA certificate #[id number]. Result Comment: [email or web address] Performed By: #### L [id number] #### [facility] ([facility]ER) [address] [place] [address] Platelet mean volume Auto (B ld) [Entitic vol]on 09-26-2023 Platelet mean volume (Bld) [Entitic vol] 10.0 fL 9.5-13.[address] [facility] Platelets Auto (Bld) [#/Vol] on 09-26-2023 Platelets (Bld) [#/Vol] 194 10 3/uL 150-[address] [facility] Prothrombin time (PT)on 08-31 PT Coag (PPP) [Time] 10.5 s 9.0-11.6 [facility] RBC Auto (Bld) [#/Vol]on RBC (Bld) [#/Vol] 5.63 10 6/uL 4.70-6.10 [facility] Serum or plasma albumin/glob ulin mass ratioon 09-26-2023 Albumin/Globulin [Mass ratio] 1.0 {ratio} [facility] Serum or plasma anion gap de terminationon 09-26-2023 Anion gap [Moles/Vol] 16.4 mmol/L [facility] TROPONIN Ion 09-26-2023 Troponin I.cardiac [Mass/Vol] 3.51 ng/mL Critically high 0.00-0.[address] [facility] Comment on above: Result Comment: M-TN EVIOUS CRITICAL RESULT Previous result verified on 09/26/2023 2309 on specimen/case [id number] called with component Troponin I for procedure Troponin I with value 3.41 ng/mL. Performed By: #### L [id number] #### [facility] ([facility]) [address] [place] [address] Troponin I.cardiac [Mass/Vol] 3.41 ng/mL Critically high 0.00-0.[address] [facility] Comment on above: Result Comment: M-TN EVIOUS CRITICAL RESULT Previous result verified on 09/26/2023 1926 on specimen/case [id number] called with component Troponin I for procedure Troponin I with value 4.22 ng/mL. Performed By: #### L [id number] #### [facility] ([facility]) [address] [place] [address] Troponin I.cardiac [Mass/Vol] 4.22 ng/mL Critically high 0.00-0.[address] [facility] Comment on above: Result Comment: M-TR OPONIN INITIAL CRITICAL HIGH; RESPUN AND RETESTED Performed By: #### L [id number] #### [facility] ([facility]) [address] [place] [address] Office Visiton 09-09-2023 Follow-up visit [id number] Lani Lizama 1950 M Date Provider Department Center 09/09/2023 Scott-PINKY BISHOP CARD [facility] [place] [facility] Family History Problem Relation Age of Onset Heart attack Mother Other Father Other Brother Heart attack Maternal Grandmother Heart attack Maternal Grandfather Family Status - Relation Status Age at Mother Father Brother Maternal Grandmother Maternal Grandfather Level of Service:12885 [place] OFFICE/OUTPATIENT ESTABLISHED MOD MDM 30 MIN Normal [facility] No Panel Informationon 08-26 Prostate Specific Antigen Screen 1.37 ng/mL <=4.[address] [facility] Erythrocyte distribution wid th Auto (RBC) [Ratio]on 06-24-2023 Erythrocyte distribution width (RBC) [Ratio] 14.6 % 11.0-15.[address] [facility] Estimated glomerular filtrat ion rate (GFR) non- Americanon 06-24-2023 GFR/1.73 sq M.predicted among non-blacks MDRD (S/P/Bld) [Vol rate/Area] 38 mL/min/{1.73_m2} >=[address] [facility] Hematocrit Auto (Bld) [Volum e fraction]on 06-24-2023 Hematocrit (Bld) [Volume fraction] 46.2 % 42.0-54.[address] [facility] Hemoglobin [Mass/volume] in Bloodon 06-24-2023 Hemoglobin (Bld) [Mass/Vol] 14.5 g/dL 14.0-18.[address] [facility] Laboratory - Chemistry and C hemistry - challengeon 06-24-2023 Albumin [Mass/Vol] 4.0 g/dL 3.4-5.0 [facility] Calcium [Mass/Vol] 9.2 mg/dL 8.5-10.1 [facility] Chloride [Moles/Vol] 106 mmol/L 98-107 [facility] CO2 [Moles/Vol] 25.4 mmol/L 21.0-32.0 [facility] Creatinine [Mass/Vol] 1.76 mg/dL 0.70-1.30 [facility] GFR/1.73 sq M.predicted MDRD (S/P/Bld) [Vol rate/Area] 47 mL/min/{1.73_m2} >=[address] [facility] Glucose [Mass/Vol] 212 mg/dL 74-106 [facility] Magnesium [Mass/Vol] 2.1 mg/dL 1.8-2.4 [facility] Potassium [Moles/Vol] 4.5 mmol/L 3.5-5.1 [facility] Sodium [Moles/Vol] 142 mmol/L 136-145 [facility] Urate [Mass/Vol] 4.3 mg/dL 3.5-7.2 [facility] Urea nitrogen [Mass/Vol] 30.0 mg/dL 7.0-18.[address] [facility] Urea nitrogen/Creatinine [Mass ratio] 17.0 mg/mg [facility] Laboratory - Urinalysison Protein (U) [Mass/Vol] 11.5 mg/dL <=11.9 [facility] Leukocytes [#/volume] correc soraya for nucleated erythrocytes in Blood by Automated counon 06-24-2023 WBC corrected for nucl RBC Auto (Bld) [#/Vol] 9.6 10 3/uL 4.0-11.[address] [facility] MCH Auto (RBC) [Entitic mass ]on 06-24-2023 MCH (RBC) [Entitic mass] 28.5 pg 25.9-34.[address] [facility] MCHC Auto (RBC) [Mass/Vol]on 06-24-2023 MCHC (RBC) [Mass/Vol] 31.4 g/dL 29.9-35.2 [facility] MCV Auto (RBC) [Entitic vol] on 06-24-2023 MCV (RBC) [Entitic vol] 90.8 fL 80.0-94.[address] [facility] No Panel Informationon 06-23 25-Hydroxy Vitamin D Total 42.5 ng/mL [facility] Comment on above: <20 ng/mL Vit D defi cient20-<30 ng/mL Vit D [id number] ng/mL Vit D sufficient>100 ng/mL Potential Toxicity Parathyroid Hormone (Intact) 48 pg/mL 15-[address] [facility] Comment on above: Performed at: [address] [id number] Director: Kwaku Park PhD, Phone: [phone] Phosphorus Level 3.6 mg/dL 2.6-4.7 [facility] Urine Random Creatinine 60.60 mg/dL 20.00-300. [address] [facility] Platelet mean volume Auto (B ld) [Entitic vol]on 06-24-2023 Platelet mean volume (Bld) [Entitic vol] 10.2 fL 9.5-13.[address] [facility] Platelets Auto (Bld) [#/Vol] on 06-24-2023 Platelets (Bld) [#/Vol] 178 10 3/uL 150-[address] [facility] RBC Auto (Bld) [#/Vol]on RBC (Bld) [#/Vol] 5.09 10 6/uL 4.70-6.10 [facility] Serum or plasma anion gap de terminationon 06-24-2023 Anion gap [Moles/Vol] 15.1 mmol/L [facility] Urine protein/creatinine rat ioon 06-24-2023 Protein/Creatinine (U) [Ratio] 0.[address] [facility] HbA1c HPLC (d) [Mass fract ion]on 06-18-2023 HbA1c (d) [Mass fraction] 6.1 % [facility] No Panel Informationon 06-17 Bedside Glucose [address] [facility] Cholesterol in LDL Calc [Mas s/Vol]on 06-13-2023 Cholesterol in LDL [Mass/Vol] 29.0 mg/dL [facility] Comment on above: <100 mg/dl [id number] 0-129 mg/dl NEAR OR ABOVE [id number] mg/dl BORDERLINE [id number] mg/dl HIGH>190 mg/dl VERY HIGH Cholesterol in VLDL Calc [Ma ss/Vol]on 06-13-2023 Cholesterol in VLDL [Mass/Vol] 24.8 mg/dL [facility] Laboratory - Chemistry and C hemistry - challengeon 06-13-2023 Cholesterol [Mass/Vol] 87 mg/dL <=200 [facility] Cholesterol in HDL [Mass/Vol] 34 mg/dL 40-[address] [facility] Comment on above: > or =60 mg/dl - LOW CARDIOVASCULAR RISK<40 mg/dl - HIGH CARDIOVASCULAR RISK Triglyceride [Mass/Vol] 124 mg/dL <=[address] [facility] Serum or plasma total choles terol/high density lipoprotein (HDL) cholesterol mass yulia 06-13-2023 Cholesterol.total/Chol esterol in HDL [Mass ratio] 2.6 {ratio} [facility] Comment on above: 3.3 - 4.4 LOW RISK4. 4 - 7.1 AVERAGE RISK7.1 - 11.0 MODERATE RISK>11.0 HIGH RISK A1C HEMOGLOBINon 03-12-2023 HbA1c (Bld) [Mass fraction] 7.1 % [employer] Other Glucose - FINGER STICKon Glucose [Mass/Vol] 151 mg/dL [employer] Other HbA1c (Bld) [Mass fraction]o n 03-12-2023 [facility] CHEST WO CONon 08-09-2022 CT [...] SCHILLING Date: 2022-08-09 14:00 Normal [facility] A1C HEMOGLOBINon 06-26-2022 HbA1c (Bld) [Mass fraction] 7.4 % [employer] Other Glucose - FINGER STICKon Glucose [Mass/Vol] 267 mg/dL [employer] Other HbA1c (Bld) [Mass fraction]o n 06-26-2022 A1C HEMOGLOBIN [employer] [facility] [employer] Other PTH INTACTon 06-26-2022 PTH, Intact 37 pg/mL Normal 15-65 [facility] Comment on above: Performed By: #### C MP, CMADM #### [facility] [address] [address] [address] Mirza Sadler FERRITINon 06-25-2022 Ferritin [Mass/Vol] 269.0 ng/mL Normal 26.0-388.0 [facility] Comment on above: Performed By: #### B PRICE CHANGER #### [facility] [address] [place] [address] Dr. Mirza Sadler HEMOGRAM AND PLATELon 2022 Hematocrit (Bld) [Volume fraction] 44.7 % Normal 42.0-54.0 [facility] Comment on above: Performed By: #### P T, PTT #### [facility] [address] [address] [address] Mirza Sadler Hemoglobin (Bld) [Mass/Vol] 15.1 g/dL Normal 14.0-18.0 [facility] Comment on above: Performed By: #### P T, PTT #### [facility] [address] [address] [address] Mirza Sadler MCH (RBC) [Entitic mass] 30.0 pg Normal 25.9-34.0 [facility] Comment on above: Performed By: #### P T, PTT #### [facility] [address] [address] [address] Mirza Sadler MCHC (RBC) [Mass/Vol] 33.8 g/dL Normal 29.9-35.2 [facility] Comment on above: Performed By: #### P T, PTT #### [facility] [address] [address] [address] Mirza Sadler MCV (RBC) [Entitic vol] 88.9 fL Normal 80.0-94.0 [facility] Comment on above: Performed By: #### P T, PTT #### [facility] [address] [place] [address] Dr. Mirza Sadler PLT 199 103/ul Normal 150-450 [facility] Comment on above: Performed By: #### P T, PTT #### [facility] [address] [address] [address] Mirza Sadler RBC 5.03 106/ul Normal 4.70-6.10 [facility] Comment on above: Performed By: #### P T, PTT #### [facility] [address] [address] [address] Mirza Sadler WBC 8.7 103/ul Normal 4.0-11.0 [facility] Comment on above: Performed By: #### P T, PTT #### [facility] [address] [place] [address] Dr. Mirza Sadler IRON AND TIBCon 06-25-2022 % SATURATION 28.6 % Normal [facility] Comment on above: Performed By: #### B PRICE CHANGER #### [facility] [address] [place] [address] Dr. Mirza Sadler Iron [Mass/Vol] 82.0 ug/dL Normal 65.0-175.0 [facility] Comment on above: Performed By: #### B PRICE CHANGER #### [facility] [address] [place] [address] Dr. Mirza Sadler TIBC DIRECT 287.0 ug/dL Normal 250.0-450. 0 [facility] Comment on above: Performed By: #### B PRICE CHANGER #### [facility] [address] [place] [address] Dr. Mirza Sadler MAGNESIUMon 06-25-2022 Magnesium [Mass/Vol] 2.0 mg/dL Normal 1.8-2.4 [facility] Comment on above: Performed By: #### B PRICE CHANGER #### [facility] [address] [place] [address] Dr. Mirza Sadler RENAL FUNCTION PANELon 06-25 Albumin [Mass/Vol] 4.2 g/dL Normal 3.4-5.0 [facility] Comment on above: Performed By: #### B PRICE CHANGER #### [facility] [address] [place] [address] Dr. Mirza Sadler Calcium [Mass/Vol] 9.3 mg/dL Normal 8.5-10.1 [facility] Comment on above: Performed By: #### B PRICE CHANGER #### [facility] [address] [place] [address] Dr. Mirza Sadler Chloride [Moles/Vol] 108 mmol/L Critically high 98-107 [facility] Comment on above: Performed By: #### B PRICE CHANGER #### [facility] [address] [place] [address] Dr. Mirza Sadler CO2 [Moles/Vol] 29.5 mmol/L Normal 21.0-32.0 [facility] Comment on above: Performed By: #### B PRICE CHANGER #### [facility] [address] [place] [address] Dr. Mirza Sadler Creatinine [Mass/Vol] 1.87 mg/dL Critically high 0.70-1.30 [facility] Comment on above: Performed By: #### B PRICE CHANGER #### [facility] Laboratory [address] [place] [address] Dr. Mirza Sadler EGFR-AF BAHRAINI 43 mL/min/1.73m2 Critically low >=60 [facility] Comment on above: Performed By: #### B PRICE CHANGER #### [facility] [address] [place] [address] Dr. Mirza Sadler EGFR-NON AF BAHRAINI 36 mL/min/1.73m2 Critically low >=60 [facility] Comment on above: Performed By: #### B PRICE CHANGER #### [facility] [address] [place] [address] Dr. Mirza Sadler Glucose [Mass/Vol] 181 mg/dL Critically high 74-106 [facility] Comment on above: Performed By: #### B PRICE CHANGER #### [facility] [address] [place] [address] Dr. Mirza Sadler Phosphate [Mass/Vol] 4.8 mg/dL Critically high 2.6-4.7 [facility] Comment on above: Performed By: #### B PRICE CHANGER #### [facility] [address] [place] [address] Dr. Mirza Sadler Potassium [Moles/Vol] 4.8 mmol/L Normal 3.5-5.1 [facility] Comment on above: Performed By: #### B PRICE CHANGER #### [facility] [address] [place] [address] Dr. Mirza Sadler Sodium [Moles/Vol] 146 mmol/L Critically high 136-145 T [facility] Comment on above: Performed By: #### B PRICE CHANGER #### [facility] [address] [place] [address] Dr. Mirza Sadler Urea nitrogen [Mass/Vol] 40.0 mg/dL Critically high 7.0-18.0 [facility] Comment on above: Performed By: #### B PRICE CHANGER #### [facility] [address] [place] [address] Dr. Mirza Sadler UA RANDOM W/MICROSCOPICon BACTERIA NONE SEEN Normal NONE SEEN [facility] Comment on above: Performed By: #### H STROPN #### [facility] [address] [place] [address] Dr. Mirza Sadler Bilirubin Ql (U) Negative Normal NEGATIVE [facility] Comment on above: Performed By: #### H STROPN #### [facility] [address] [place] [address] Dr. Mirza Sadler CAST NONE SEEN Normal NONE SEEN [facility] Comment on above: Performed By: #### H STROPN #### [facility] [address] [place] [address] Dr. Mirza Sadler Clarity (U) CLEAR Normal CLEAR [facility] Comment on above: Performed By: #### H STROPN #### [facility] [address] [place] [address] Dr. Mirza Sadler Color (U) LT. YELLOW Normal YELLOW [facility] Comment on above: Performed By: #### H STROPN #### [facility] [address] [place], [place] [id number] Dr. Mirza Sadler Crystals LM Nom (Urine sed) NONE SEEN Normal NONE SEEN [facility] Comment on above: Performed By: #### H STROPN #### [facility] [address] [place] [address] Dr. Mirza Sadler Epithelial cells LM Ql (Urine sed) FEW Abnormal NONE SEEN /RARE [facility] Comment on above: Performed By: #### H STROPN #### [facility] [address] [address] [address] Mirza Sadler Glucose Ql (U) 500 mg/dl Abnormal NEGATIVE [facility] Comment on above: Performed By: #### H STROPN #### [facility] [address] [place] [address] Dr. Mirza Sadler Hemoglobin Ql (U) Negative Normal NEGATIVE [facility] Comment on above: Performed By: #### H STROPN #### [facility] [address] [place] [address] Dr. Mirza Sadler Ketones Ql (U) Negative Normal NEGATIVE [facility] Comment on above: Performed By: #### H STROPN #### [facility] [address] [place] [address] Dr. Mirza Sadler LEUKOCYTES Negative Normal NEGATIVE [facility] Comment on above: Performed By: #### H STROPN #### [facility] [address] [place] [address] Dr. Mirza Sadler MUCOUS NONE SEEN Normal NONE SEEN [facility] Comment on above: Performed By: #### H STROPN #### [facility] [address] [place] [address] Dr. Mirza Sadler Nitrite Ql (U) Negative Normal NEGATIVE [facility] Comment on above: Performed By: #### H STROPN #### [facility] [address] [place] [address] Dr. Mirza Sadler pH (U) 5.5 [pH] Normal 5-9 [facility] Comment on above: Performed By: #### H STROPN #### [facility] [address] [place] [address] Dr. Mirza Sadler RBC 0-2 Normal 0-2 [facility] Comment on above: Performed By: #### H STROPN #### [facility] [address] [place] [address] Dr. Mirza Sadler SPEC GRAVITY 1.015 Normal 1.005-<=1. 025 [facility] Comment on above: Performed By: #### H STROPN #### [facility] [address] [place] [address] Dr. Mirza Sadler UA PROTEIN Negative Normal NEGATIVE/ TRACE [facility] Comment on above: Performed By: #### H STROPN #### [facility] [address] [place] [address] Dr. Mirza Sadler Urobilinogen Qn (U) 0.2 {Luisito'U}/dL Normal 0.2 - 1. 0 [facility] Comment on above: Performed By: #### H STROPN #### [facility] [address] [place] [address] Dr. Mirza Sadler WBC NONE SEEN Normal NONE SEEN The [facility] Comment on above: Performed By: #### H STROPN #### [facility] [address] [place] [address] Dr. Mirza Sadler URIC ACID SERUMon 06-25-2022 Urate [Mass/Vol] 6.1 mg/dL Normal 3.5-7.2 [facility] Comment on above: Performed By: #### B PRICE CHANGER #### [facility] [address] [place] [address] Dr. Mirza Sadler URINE T PROTEIN CREAT RATIOo n 06-25-2022 Protein (U) [Mass/Vol] 9.7 mg/dL Normal <=12.0 [facility] Comment on above: Performed By: #### C TEGAN MARIN #### [facility] [address] [place] [address] Dr. Mirza Sadler UR PROT CREAT RAT 0.14 Normal [facility] Comment on above: Performed By: #### C TEGAN MARIN #### [facility] [address] [place] [address] Dr. Mirza Sadler URINE CREAT 71.45 mg/dL Normal 20.00-300. 00 [facility] Comment on above: Performed By: #### C MP, CMADM #### [facility] [address] [place] [address] Dr. Mirza Sadler VITAMIN D 25 OHon 06-25-2022 VIT D 25-OH 44.7 ng/mL Normal [facility] Comment on above: Performed By: #### E RUR #### [facility] [address] [place] [address] Dr. Mirza Sadler VIT D RANGES SEE BELOW Normal [facility] Comment on above: Result Comment: <20 ng/mL Vit D deficient 20 - <30 ng/mL Vit D insufficient 30 - 100 ng/mL Vit D sufficient >100 ng/mL Potential Toxicity Performed By: #### E RUR #### [facility] [address] [place] [address] Dr. Mirza Sadler LIPID PROFILEon 06-18-2022 CHOL-HDL RATIO NORM SEE BELOW Normal [facility] Comment on above: Result Comment: 3.3 - 4.4 LOW RISK 4.4 - 7.1 AVERAGE RISK 7.1 - 11.0 MODERATE RISK >11.0 HIGH RISK Performed By: #### H STROPN #### [facility] [address] [place] [address] Dr. Mirza Sadler Cholesterol [Mass/Vol] 136 mg/dL Normal <=200 [facility] Comment on above: Performed By: #### H STROPN #### [facility] [address] [place] [address] Dr. Mirza Sadler Cholesterol in HDL [Mass/Vol] 38 mg/dL Critically low 40-60 [facility] Comment on above: Performed By: #### H STROPN #### [facility] [address] [place] [address] Dr. Mirza Sadler Cholesterol in LDL [Mass/Vol] 69.6 mg/dL Normal [facility] Comment on above: Performed By: #### H STROPN #### [facility] [address] [place] [address] Dr. Mirza Sadler Cholesterol.total/Chol esterol in HDL [Mass ratio] 3.6 {ratio} Normal [facility] Comment on above: Performed By: #### H STROPN #### [facility] [address] [address] [address] Mirza Sadler HDL NORMAL > or = 60 mg/dl - LO W CARDIOVASCULAR RISK <40 mg/dl - HIGH CARDIOVASCULAR RISK Normal [facility] Comment on above: Performed By: #### H STROPN #### [facility] [address] [address] [address] Mirza Sadler LDL CALC NORMAL SEE BELOW Normal [facility] Comment on above: Result Comment: <100 mg/dl OPTIMAL 100 - 129 mg/dl NEAR OR ABOVE OPTIMAL 130 - 159 mg/dl BORDERLINE HIGH 160 - 189 mg/dl HIGH >190 mg/dl VERY HIGH Performed By: #### H STROPN #### [facility] [address] [address] [address] Mirza Sadler Triglyceride [Mass/Vol] 142 mg/dL Normal <=150 [facility] Comment on above: Performed By: #### H STROPN #### [facility] [address] [address] [address] Mirza Sadler VLDL CALC 28.4 mg/dL Normal [facility] Comment on above: Performed By: #### H STROPN #### [facility] [address] [place] [address] CHEST WO CONon [...] HIGINIO FLANAGAN Date: 2022-06-05 16:58 Normal [facility] CT CHEST WO CON [employer] Other PROF CHEM 8 (BAS METB)on Anion gap [Moles/Vol] 10.2 mmol/L Normal [facility] Comment on above: Performed By: #### B PRICE CHANGER #### [facility] [address] [address] [address] Mirza Sadler Calcium [Mass/Vol] 8.9 mg/dL Normal 8.5-10.1 [facility] Comment on above: Performed By: #### B PRICE CHANGER #### [facility] [address] [address] [address] Mirza Sadler Chloride [Moles/Vol] 101 mmol/L Normal 98-107 [facility] Comment on above: Performed By: #### B PRICE CHANGER #### [facility] [address] [address] [address] Mirza Sadler CO2 [Moles/Vol] 31.2 mmol/L Normal 21.0-32.0 [facility] Comment on above: Performed By: #### B PRICE CHANGER #### [facility] [address] [address] [address] Mirza Sadler Creatinine [Mass/Vol] 1.91 mg/dL Critically high 0.70-1.30 [facility] Comment on above: Performed By: #### B PRICE CHANGER #### [facility] [address] [address] [address] Mirza Sadler EGFR-AF BAHRAINI 42 mL/min/1.73m2 Critically low >=60 [facility] Comment on above: Performed By: #### B PRICE CHANGER #### [facility] [address] [address] [address] Mirza Sadler EGFR-NON AF BAHRAINI 35 mL/min/1.73m2 Critically low >=60 [facility] Comment on above: Performed By: #### B PRICE CHANGER #### [facility] [address] [address] [address] Mirza Sadler Glucose [Mass/Vol] 242 mg/dL Critically high 74-106 T [facility] Comment on above: Performed By: #### B PRICE CHANGER #### [facility] [address] [address] [address] Mirza Sadler Potassium [Moles/Vol] 4.4 mmol/L Normal 3.5-5.1 [facility] Comment on above: Performed By: #### B PRICE CHANGER #### [facility] [address] [address] [address] Mirza Sadler Sodium [Moles/Vol] 138 mmol/L Normal 136-145 [facility] Comment on above: Performed By: #### B PRICE CHANGER #### [facility] [address] [address] [address] Mirza Sadler Urea nitrogen [Mass/Vol] 33.0 mg/dL Critically high 7.0-18.0 [facility] Comment on above: Performed By: #### B PRICE CHANGER #### [facility] [address] [address] [address] Mirza Sadler Urea nitrogen/Creatinine [Mass ratio] 17.3 mg/mg Normal [facility] Comment on above: Performed By: #### B PRICE CHANGER #### [facility] [address] [address] [address] Mirza Sadler PROF CHEM 8 (BAS METB)on Anion gap [Moles/Vol] 10.7 mmol/L Normal [facility] Comment on above: Performed By: #### P T, PTT #### [facility] [address] [address] [address] Mirza Sadler Calcium [Mass/Vol] 8.9 mg/dL Normal 8.5-10.1 [facility] Comment on above: Performed By: #### P T, PTT #### [facility] [address] [address] [address] Mirza Sadler Chloride [Moles/Vol] 104 mmol/L Normal 98-107 [facility] Comment on above: Performed By: #### P T, PTT #### [facility] [address] [address] [address] Mirza Sadler CO2 [Moles/Vol] 29.4 mmol/L Normal 21.0-32.0 [facility] Comment on above: Performed By: #### P T, PTT #### [facility] [address] [place] [address] Dr. Mirza Sadler Creatinine [Mass/Vol] 1.75 mg/dL Critically high 0.70-1.30 [facility] Comment on above: Performed By: #### P T, PTT #### [facility] [address] [place] [address] Dr. Mirza Sadler EGFR-AF BAHRAINI 47 mL/min/1.73m2 Critically low >=60 [facility] Comment on above: Performed By: #### P T, PTT #### [facility] [address] [place] [address] Dr. Mirza Sadler EGFR-NON AF BAHRAINI 39 mL/min/1.73m2 Critically low >=60 [facility] Comment on above: Performed By: #### P T, PTT #### [facility] [address] [place] [address] Dr. Mirza Sadler Glucose [Mass/Vol] 191 mg/dL Critically high 74-106 [facility] Comment on above: Performed By: #### P T, PTT #### [facility] [address] [address] [address] Mirza Sadler Potassium [Moles/Vol] 4.1 mmol/L Normal 3.5-5.1 [facility] Comment on above: Performed By: #### P T, PTT #### [facility] [address] [place] [address] Dr. Mirza Sadler Sodium [Moles/Vol] 140 mmol/L Normal 136-145 [facility] Comment on above: Performed By: #### P T, PTT #### [facility] [address] [address] [address] Mirza Sadler Urea nitrogen [Mass/Vol] 31.0 mg/dL Critically high 7.0-18.0 [facility] Comment on above: Performed By: #### P T, PTT #### [facility] [address] [id number] [address] Mirza Sadler Urea nitrogen/Creatinine [Mass ratio] 17.7 mg/mg Normal [facility] Comment on above: Performed By: #### P T, PTT #### [facility] [address] [id number] [address] Mirza Sadler XR CHEST 2 Von [...] FLANAGAN Date: 2022-03-22 16:12 Normal [facility] A1C HEMOGLOBINon 03-20-2022 HbA1c (Bld) [Mass fraction] 6.7 % [employer] Other Glucose - FINGER STICKon Glucose [Mass/Vol] 193 mg/dL [employer] Other HbA1c (Bld) [Mass fraction]o n 03-20-2022 A1C HEMOGLOBIN [employer] Other BNPon 03-13-2022 Natriuretic peptide B (Bld) [Mass/Vol] 4825.0 pg/mL Critically high <=900.0 [facility] Comment on above: Performed By: #### E RUR #### [facility] [address] [place] [address] Dr. Mirza Sadler CBC AUTO DIFFon 03-13-2022 BASO # 0.0 103/ul Normal 0.0-0.1 [facility] Comment on above: Performed By: #### E RUR #### [facility] [address] [place] [address] Dr. Mirza Sadler Basophils/100 WBC (Bld) 0.6 % Normal 0.2-2.0 [facility] Comment on above: Performed By: #### E RUR #### [facility] [address] [place] [address] Dr. Mirza Sadler EO # 0.1 103/ul Normal 0.0-0.7 [facility] Comment on above: Performed By: #### E RUR #### [facility] [address] [place] [address] Dr. Mirza Sadler Eosinophils/100 WBC (Bld) 1.8 % Normal 0.9-7.0 [facility] Comment on above: Performed By: #### E RUR #### [facility] [address] [place] [address] Dr. Mizra Sadler Erythrocyte distribution width (RBC) [Ratio] 14.4 % Normal 11.0-15.0 [facility] Comment on above: Performed By: #### E RUR #### [facility] [address] [place] [address] Dr. Mirza Sadler Hematocrit (Bld) [Volume fraction] 36.1 % Critically low 42.0-54.0 [facility] Comment on above: Performed By: #### E RUR #### [facility] [address] [place] [address] Dr. Mirza Sadler Hemoglobin (Bld) [Mass/Vol] 11.9 g/dL Critically low 14.0-18.0 [facility] Comment on above: Performed By: #### E RUR #### [facility] [address] [place] [address] Dr. Mirza Sadler IG # 0.02 10e3/ul Normal 0.00-0.03 [facility] Comment on above: Performed By: #### E RUR #### [facility] [address] [place] [address] Dr. Mirza Sadler IG % 0.3 % Normal 0.0-0.5 [facility] Comment on above: Performed By: #### E RUR #### [facility] [address] [place] [address] Dr. Mirza Sadler LYMPH # 1.5 103/ul Normal 1.2-3.8 [facility] Comment on above: Performed By: #### E RUR #### [facility] [address] [place] [address] Dr. Mirza Sadler Lymphocytes/100 WBC (Bld) 22.6 % Normal 20.5-60.0 [facility] Comment on above: Performed By: #### E RUR #### [facility] [address] [place] [address] Dr. Mirza Sadler MANUAL DIFF REQ NO Normal [facility] Comment on above: Performed By: #### E RUR #### [facility] [address] [place] [address] Dr. Mirza Sadler MCH (RBC) [Entitic mass] 29.0 pg Normal 25.9-34.0 [facility] Comment on above: Performed By: #### E RUR #### [facility] [address] [place] [address] Dr. Mirza Sadler MCHC (RBC) [Mass/Vol] 33.0 g/dL Normal 29.9-35.2 [facility] Comment on above: Performed By: #### E RUR #### [facility] [address] [place] [address] Dr. Mirza Sadler MCV (RBC) [Entitic vol] 88.0 fL Normal 80.0-94.0 [facility] Comment on above: Performed By: #### E RUR #### [facility] [address] [place] [address] Dr. Mirza Sadler MONO # 0.7 103/ul Normal 0.3-0.8 [facility] Comment on above: Performed By: #### E RUR #### [facility] [address] [place] [address] Dr. Mirza Sadler Monocytes/100 WBC (Bld) 10.2 % Normal 1.7-12.0 [facility] Comment on above: Performed By: #### E RUR #### [facility] [address] [place] [address] Dr. Mirza Sadler NEUT # 4.3 103/ul Normal 1.4-6.5 [facility] Comment on above: Performed By: #### E RUR #### [facility] [address] [place] [address] Dr. Mirza Sadler Neutrophils/100 WBC (Bld) 64.5 % Normal 43.0-75.0 [facility] Comment on above: Performed By: #### E RUR #### [facility] [address] [place] [address] Dr. Mirza Sadler Platelet mean volume (Bld) [Entitic vol] 9.7 fL Normal 9.5-13.5 [facility] Comment on above: Performed By: #### E RUR #### [facility] [address] [place] [address] Dr. Mirza Sadler PLT 149 103/ul Critically low 150-450 [facility] Comment on above: Performed By: #### E RUR #### [facility] [address] [place] [address] Dr. Mirza Sadler RBC 4.10 106/ul Critically low 4.70-6.10 [facility] Comment on above: Performed By: #### E RUR #### [facility] [address] [place] [address] Dr. Mirza Sadler WBC 6.6 103/ul Normal 4.0-11.0 [facility] Comment on above: Performed By: #### E RUR #### [facility] [address] [place] [address] Dr. Mirza Sadler PROF CHEM 8 (BAS METB)on Anion gap [Moles/Vol] 14.6 mmol/L Normal [facility] Comment on above: Performed By: #### E RUR #### [facility] [address] [address] [address] Mirza Sadler Calcium [Mass/Vol] 8.5 mg/dL Normal 8.5-10.1 [facility] Comment on above: Performed By: #### E RUR #### [facility] [address] [address] [address] Mirza Sadler Chloride [Moles/Vol] 104 mmol/L Normal 98-107 [facility] Comment on above: Performed By: #### E RUR #### [facility] [address] [place] [address] Dr. Mirza Sadler CO2 [Moles/Vol] 22.7 mmol/L Normal 21.0-32.0 [facility] Comment on above: Performed By: #### E RUR #### [facility] [address] [place] [address] Dr. Mirza Sadler Creatinine [Mass/Vol] 1.78 mg/dL Critically high 0.70-1.30 [facility] Comment on above: Performed By: #### E RUR #### [facility] [address] [place] [address] Dr. Mirza Sadler EGFR-AF BAHRAINI 46 mL/min/1.73m2 Critically low >=60 [facility] Comment on above: Performed By: #### E RUR #### [facility] [address] [place] [address] Dr. Mirza Sadler EGFR-NON AF BAHRAINI 38 mL/min/1.73m2 Critically low >=60 [facility] Comment on above: Performed By: #### E RUR #### [facility] [address] [place] [address] Dr. Mirza Sadler Glucose [Mass/Vol] 121 mg/dL Critically high 74-106 [facility] Comment on above: Performed By: #### E RUR #### [facility] [address] [place] [address] Dr. Mirza Sadler Potassium [Moles/Vol] 3.3 mmol/L Critically low 3.5-5.1 [facility] Comment on above: Performed By: #### E RUR #### [facility] [address] [place] [address] Dr. Mirza Sadler Sodium [Moles/Vol] 138 mmol/L Normal 136-145 [facility] Comment on above: Performed By: #### E RUR #### [facility] [address] [place] [address] Dr. Mirza Sadler Urea nitrogen [Mass/Vol] 30.0 mg/dL Critically high 7.0-18.0 [facility] Comment on above: Performed By: #### E RUR #### [facility] [address] [place] [address] Dr. Mirza Sadler Urea nitrogen/Creatinine [Mass ratio] 16.9 mg/mg Normal [facility] Comment on above: Performed By: #### E RUR #### [facility] [address] [place] [address] Dr. Mirza Sadler BNPon 03-12-2022 Natriuretic peptide B (Bld) [Mass/Vol] 7452.0 pg/mL Critically high <=900.0 [facility] Comment on above: Performed By: #### C MP CMADM #### [facility] [address] [place] [address] Dr. Mirza Sadler CBC AUTO DIFFon 03-12-2022 BASO # 0.0 103/ul Normal 0.0-0.1 [facility] Comment on above: Performed By: #### P T, PTT #### [facility] [address] [place] [address] Dr. Mirza Sadler Basophils/100 WBC (Bld) 0.4 % Normal 0.2-2.0 [facility] Comment on above: Performed By: #### P T, PTT #### [facility] [address] [place] [address] Dr. Mirza Sadler EO # 0.0 103/ul Normal 0.0-0.7 [facility] Comment on above: Performed By: #### P T, PTT #### [facility] [address] [place] [address] Dr. Mirza Sadler Eosinophils/100 WBC (Bld) 0.2 % Critically low 0.9-7.0 [facility] Comment on above: Performed By: #### P T, PTT #### [facility] [address] [place] [address] Dr. Mirza Sadler Erythrocyte distribution width (RBC) [Ratio] 14.6 % Normal 11.0-15.0 [facility] Comment on above: Performed By: #### P T, PTT #### [facility] [address] [place] [address] Dr. Mirza Sadler Hematocrit (Bld) [Volume fraction] 37.8 % Critically low 42.0-54.0 [facility] Comment on above: Performed By: #### P T, PTT #### [facility] [address] [place] [address] Dr. Mirza Sadler Hemoglobin (Bld) [Mass/Vol] 12.2 g/dL Critically low 14.0-18.0 [facility] Comment on above: Performed By: #### P T, PTT #### [facility] [address] [place] [address] Dr. Mirza Sadler IG # 0.03 10e3/ul Normal 0.00-0.03 [facility] Comment on above: Performed By: #### P T, PTT #### [facility] [address] [place] [address] Dr. Mirza Sadler IG % 0.3 % Normal 0.0-0.5 [facility] Comment on above: Performed By: #### P T, PTT #### [facility] [address] [place] [address] Dr. Mirza Sadler LYMPH # 1.2 103/ul Normal 1.2-3.8 [facility] Comment on above: Performed By: #### P T, PTT #### [facility] [address] [place] [address] Dr. Mirza Sadler Lymphocytes/100 WBC (Bld) 11.5 % Critically low 20.5-60.0 [facility] Comment on above: Performed By: #### P T, PTT #### [facility] [address] [place] [address] Dr. Mirza Sadler MANUAL DIFF REQ NO Normal [facility] Comment on above: Performed By: #### P T, PTT #### [facility] [address] [place] [address] Dr. Mirza Sadlre MCH (RBC) [Entitic mass] 29.0 pg Normal 25.9-34.0 [facility] Comment on above: Performed By: #### P T, PTT #### [facility] [address] [place] [address] Dr. Mirza Sadler MCHC (RBC) [Mass/Vol] 32.3 g/dL Normal 29.9-35.2 [facility] Comment on above: Performed By: #### P T, PTT #### [facility] [address] [place] [address] Dr. Mirza Sadler MCV (RBC) [Entitic vol] 89.8 fL Normal 80.0-94.0 [facility] Comment on above: Performed By: #### P T, PTT #### [facility] [address] [place] [address] Dr. Mirza Sadler MONO # 0.7 103/ul Normal 0.3-0.8 [facility] Comment on above: Performed By: #### P T, PTT #### [facility] [address] [place] [address] Dr. Mirza Sadler Monocytes/100 WBC (Bld) 6.8 % Normal 1.7-12.0 [facility] Comment on above: Performed By: #### P T, PTT #### [facility] [address] [place] [address] Dr. Mirza Sadler NEUT # 8.5 103/ul Critically high 1.4-6.5 [facility] Comment on above: Performed By: #### P T, PTT #### [facility] [address] [place] [address] Dr. Mirza Sadler Neutrophils/100 WBC (Bld) 80.8 % Critically high 43.0-75.0 [facility] Comment on above: Performed By: #### P T, PTT #### [facility] [address] [address] [address] Mirza Sadler Platelet mean volume (Bld) [Entitic vol] 9.8 fL Normal 9.5-13.5 [facility] Comment on above: Performed By: #### P T, PTT #### [facility] [address] [place], [place] [address] Dr. Mirza Sadler PLT 165 103/ul Normal 150-450 [facility] Comment on above: Performed By: #### P T, PTT #### [facility] [address] [address] [address] Mirza Sadler RBC 4.21 106/ul Critically low 4.70-6.10 [facility] Comment on above: Performed By: #### P T, PTT #### [facility] [id number] Mirza Sadler WBC 10.5 103/ul Normal 4.0-11.0 [facility] Comment on above: Performed By: #### P T, PTT #### [facility] [id number] Mirza Sadler ECHOCARDIO M/2D COMPLETEon 1 05-13-2021 ECHOCARDIO M/2D COMPLETE Patient: LANI LIZAMA Exam Date: 03/12/2022 : 1950 Gender:M Ordering : DR OBDULIO ALVA . Admission #: [id number] Family : DR HARLEY CRESPO D.O. Order #: [id number] CLICK HERE TO VIEW EXAM ECHOCARDIOGRAM REPORT PROCEDURE: CARDIO PULMONARY ECHOCARDIO M/2D COMP INDICATIONS: Elevated TROP and BNPChest pain, recent OR, CHF, CBAG x 5, PTCA x 7 [...] M.D. on 03/13/2022 at 17:42 Normal [facility] CHEM 8 (BAS METB)on Anion gap [Moles/Vol] 17.8 mmol/L Normal [facility] Comment on above: Performed By: #### C TANIA, DOMDM #### [facility] [address] [place] [address] Dr. Mirza Sadler Calcium [Mass/Vol] 8.6 mg/dL Normal 8.5-10.1 [facility] Comment on above: Performed By: #### C TANIA, DOMDM #### [facility] [address] [place] [address] Dr. Mirza Sadler Chloride [Moles/Vol] 103 mmol/L Normal 98-107 [facility] Comment on above: Performed By: #### C TANIA, DOMDM #### [facility] [address] [place] [address] Dr. Mirza Sadler CO2 [Moles/Vol] 22.3 mmol/L Normal 21.0-32.0 [facility] Comment on above: Performed By: #### C TANIA, DOMDM #### [facility] [address] [place] [address] Dr. Mirza Sadler Creatinine [Mass/Vol] 1.81 mg/dL Critically high 0.70-1.30 [facility] Comment on above: Performed By: #### C TANIA, DOMDM #### [facility] [address] [place] [address] Dr. Mirza Sadler EGFR-AF BAHRAINI 45 mL/min/1.73m2 Critically low >=60 [facility] Comment on above: Performed By: #### C TANIA, CMADM #### [facility] [address] [place] [address] Dr. Mirza Sadler EGFR-NON AF BAHRAINI 37 mL/min/1.73m2 Critically low >=60 [facility] Comment on above: Performed By: #### C TANIA, CMADM #### [facility] [address] [place] [address] Dr. Mirza Sadler Glucose [Mass/Vol] 161 mg/dL Critically high 74-106 T [facility] Comment on above: Performed By: #### C TANIA, TEGAN #### [facility] [address] [place] [address] Dr. Mirza Sadler Potassium [Moles/Vol] 4.1 mmol/L Normal 3.5-5.1 [facility] Comment on above: Performed By: #### C TANIA, DOMDM #### [facility] [address] [place] [address] Dr. Mirza Sadler Sodium [Moles/Vol] 139 mmol/L Normal 136-145 [facility] Comment on above: Performed By: #### C TANIA, DOMDM #### [facility] [address] [place] [address] Dr. Mirza Sadler Urea nitrogen [Mass/Vol] 28.0 mg/dL Critically high 7.0-18.0 [facility] Comment on above: Performed By: #### C TANIA, DOMDM #### [facility] [address] [place] [address] Dr. Mirza Sadler Urea nitrogen/Creatinine [Mass ratio] 15.5 mg/mg Normal [facility] Comment on above: Performed By: #### C TANIA, DOMDM #### [facility] [address] [place] [address] Dr. Mirza Sadler TROPONIN, HIGH SENSITIVITYon 03-12-2022 HSTROP 16878.5 pg/mL Critically high 4.0-76.1 [facility] Comment on above: Result Comment: CUT- OFF POINTS HAVE BEEN ESTABLISHED BASED ON THE FOURTH UNIVERSAL DEFINITIONS OF MYOCARDIAL INFARCTION. THE UPPER REFERENCE LIMIT (URL) OF TROPONIN, DEFINED THE 99TH PERCENTILE OF cTnI DISTRIBUTION IN A REFERENCE POPULATION, HAS BEEN CONFIRMED THE DECISION THRESHOLD FOR OR DIAGNOSIS. Performed By: #### C TANIA, DOMDM #### [facility] [address] [place] [address] Dr. Mirza Sadler BNPon 03-11-2022 Natriuretic peptide B (Bld) [Mass/Vol] 1378.0 pg/mL Critically high <=900.0 [facility] Comment on above: Performed By: #### P T, PTT #### [facility] [address] [place] [address] Dr. Mirza Sadler CARDIAC PARUL 3-6on 2 CK [Catalytic activity/Vol] 139 U/L Normal 39-308 [facility] Comment on above: Performed By: #### E RUR #### [facility] [address] [place] [address] Dr. Mirza Sadler CK.MB [Mass/Vol] 7.50 ng/mL Critically high <=3.60 [facility] Comment on above: Performed By: #### E RUR #### [facility] [address] [place] [address] Dr. Mirza Sadler HSTROP 1419.3 pg/mL Critically high 4.0-76.1 [facility] Comment on above: Result Comment: CUT- OFF POINTS HAVE BEEN ESTABLISHED BASED ON THE FOURTH UNIVERSAL DEFINITIONS OF MYOCARDIAL INFARCTION. THE UPPER REFERENCE LIMIT (URL) OF TROPONIN, DEFINED THE 99TH PERCENTILE OF cTnI DISTRIBUTION IN A REFERENCE POPULATION, HAS BEEN CONFIRMED THE DECISION THRESHOLD FOR OR DIAGNOSIS. Performed By: #### E RUR #### [facility] [address] [place] [address] Dr. Mirza Sadler CBC AUTO DIFFon 03-11-2022 BASO # 0.1 103/ul Normal 0.0-0.1 [facility] Comment on above: Performed By: #### E RUR #### [facility] [address] [place] [address] Dr. Mirza Sadler Basophils/100 WBC (Bld) 0.5 % Normal 0.2-2.0 [facility] Comment on above: Performed By: #### E RUR #### [facility] [address] [place] [address] Dr. Mirza Sadler EO # 0.2 103/ul Normal 0.0-0.7 [facility] Comment on above: Performed By: #### E RUR #### [facility] [address] [place] [address] Dr. Mirza Sadler Eosinophils/100 WBC (Bld) 1.3 % Normal 0.9-7.0 [facility] Comment on above: Performed By: #### E RUR #### [facility] [address] [place] [address] Dr. Mirza Sadler Erythrocyte distribution width (RBC) [Ratio] 14.6 % Normal 11.0-15.0 [facility] Comment on above: Performed By: #### E RUR #### [facility] [address] [place] [address] Dr. Mirza Sadler Hematocrit (Bld) [Volume fraction] 43.1 % Normal 42.0-54.0 [facility] Comment on above: Performed By: #### E RUR #### [facility] [address] [place] [address] Dr. Mirza Sadler Hemoglobin (Bld) [Mass/Vol] 14.2 g/dL Normal 14.0-18.0 [facility] Comment on above: Performed By: #### E RUR #### [facility] [address] [place] [address] Dr. Mirza Sadler IG # 0.07 10e3/ul Critically high 0.00-0.03 [facility] Comment on above: Performed By: #### E RUR #### [facility] [address] [place] [address] Dr. Mirza Sadler IG % 0.5 % Normal 0.0-0.5 [facility] Comment on above: Performed By: #### E RUR #### [facility] [address] [place] [address] Dr. Mirza Sadler LYMPH # 1.3 103/ul Normal 1.2-3.8 [facility] Comment on above: Performed By: #### E RUR #### [facility] [address] [place] [address] Dr. Mirza Sadler Lymphocytes/100 WBC (Bld) 8.6 % Critically low 20.5-60.0 [facility] Comment on above: Performed By: #### E RUR #### [facility] [address] [place] [address] Dr. Mirza Sadler MANUAL DIFF REQ NO Normal [facility] Comment on above: Performed By: #### E RUR #### [facility] [address] [place] [address] Dr. Mirza Sadler MCH (RBC) [Entitic mass] 29.3 pg Normal 25.9-34.0 [facility] Comment on above: Performed By: #### E RUR #### [facility] [address] [place] [address] Dr. Mirza Sadler MCHC (RBC) [Mass/Vol] 32.9 g/dL Normal 29.9-35.2 [facility] Comment on above: Performed By: #### E RUR #### [facility] [address] [place] [address] Dr. Mirza Sadler MCV (RBC) [Entitic vol] 88.9 fL Normal 80.0-94.0 [facility] Comment on above: Performed By: #### E RUR #### [facility] [address] [place] [address] Dr. Mirza Sadler MONO # 0.7 103/ul Normal 0.3-0.8 [facility] Comment on above: Performed By: #### E RUR #### [facility] [address] [place] [address] Dr. Mirza Sadler Monocytes/100 WBC (Bld) 4.3 % Normal 1.7-12.0 [facility] Comment on above: Performed By: #### E RUR #### [facility] [address] [place] [address] Dr. Mirza Sadler NEUT # 12.8 103/ul Critically high 1.4-6.5 [facility] Comment on above: Performed By: #### E RUR #### [facility] [address] [place] [address] Dr. Mirza Sadler Neutrophils/100 WBC (Bld) 84.8 % Critically high 43.0-75.0 [facility] Comment on above: Performed By: #### E RUR #### [facility] [address] [place] [address] Dr. Mirza Sadler Platelet mean volume (Bld) [Entitic vol] 9.9 fL Normal 9.5-13.5 [facility] Comment on above: Performed By: #### E RUR #### [facility] [address] [place] [address] Dr. Mirza Sadler PLT 201 103/ul Normal 150-450 [facility] Comment on above: Performed By: #### E RUR #### [facility] [address] [place] [address] Dr. Mirza Sadler RBC 4.85 106/ul Normal 4.70-6.10 [facility] Comment on above: Performed By: #### E RUR #### [facility] [address] [place] [address] Dr. Mirza Sadler WBC 15.0 103/ul Critically high 4.0-11.0 [facility] Comment on above: Performed By: #### E RUR #### [facility] [address] [place] [address] Dr. Mirza Sadler CULTURE BLOODon 03-11-2022 Microscopic examination of blood, culture Culture Observations: NO GROWTH AT 5 DAYS. Normal [facility] Comment on above: Performed By: #### H STROPN #### [facility] [address] [place] [address] Dr. Mirza Sadler Microscopic examination of blood, culture Culture Observations: NO GROWTH AT 5 DAYS. Normal [facility] Comment on above: Performed By: #### H STROPN #### [facility] [address] [place] [address] Dr. Mirza Sadler Covid-19 PCR ([facility])on 03-01 SARS-CoV-2 (COVID-19) RNA RAMO+probe Ql (Unsp spec) Not detected Normal NOT DETECTED [facility] Comment on above: Result Comment: When diagnostic [...] for this test is supported by the Web Operations Specialist of Health and Human Service's declaration that [...] used). Performed By: #### H STROPN #### [facility] [address] [place] [address] Dr. Mirza Sadler ER URINE PROFILEon 2 Bilirubin Ql (U) Negative Normal NEGATIVE [facility] Comment on above: Performed By: #### E RUR #### [facility] [address] [place] [address] Dr. Mirza Sadler Clarity (U) CLEAR Normal CLEAR [facility] Comment on above: Performed By: #### E RUR #### [facility] [address] [place] [address] Dr. Mirza Sadler Color (U) LT. YELLOW Normal YELLOW [facility] Comment on above: Performed By: #### E RUR #### [facility] [address] [place] [address] Dr. Mirza GARCIAD A micrscopic examina tion will be performed if indicated. Normal [facility] Comment on above: Performed By: #### E RUR #### [facility] [address] [place] [address] Dr. Mirza Sadler Glucose Ql (U) >1000 Abnormal NEGATIVE [facility] Comment on above: Performed By: #### E RUR #### [facility] [address] [place] [address] Dr. Mirza Sadler Hemoglobin Ql (U) Negative Normal NEGATIVE [facility] Comment on above: Performed By: #### E RUR #### [facility] [address] [place] [address] Dr. Mirza Sadler Ketones Ql (U) 15 mg/dl Abnormal NEGATIVE [facility] Comment on above: Performed By: #### E RUR #### [facility] [address] [place] [address] Dr. Mirza Sadler LEUKOCYTES Negative Normal NEGATIVE [facility] Comment on above: Performed By: #### E RUR #### [facility] [address] [place] [address] Dr. Mirza Sadler Nitrite Ql (U) Negative Normal NEGATIVE [facility] Comment on above: Performed By: #### E RUR #### [facility] [address] [place] [address] Dr. Mirza Sadler pH (U) 5.0 [pH] Normal 5-9 [facility] Comment on above: Performed By: #### E RUR #### [facility] [address] [place] [address] Dr. Mirza Sadler SPEC GRAVITY 1.020 Normal 1.005-<=1. 025 [facility] Comment on above: Performed By: #### E RUR #### [facility] [address] [place] [address] Dr. Mirza Sadler UA PROTEIN TRACE Normal NEGATIVE/ TRACE [facility] Comment on above: Performed By: #### E RUR #### [facility] [address] [place] [address] Dr. Mirza Sadler UR MICRO IND NOT INDICATED Normal [facility] Comment on above: Performed By: #### E RUR #### [facility] [address] [place] [address] Dr. Mirza Sadler Urobilinogen Qn (U) 0.2 {Luisito'U}/dL Normal 0.2 - 1. 0 [facility] Comment on above: Performed By: #### E RUR #### [facility] [address] [place] [address] Dr. Mirza Sadler POINT OF CARE GLUCOSEon 12- Glucose [Mass/Vol] 161 mg/dL Critically high 74-106 T [facility] Comment on above: Performed By: #### P T, PTT #### [facility] [address] [place] [address] Dr. Mirza Sadler PROF 14(COMP METB)on 022 Albumin [Mass/Vol] 4.3 g/dL Normal 3.4-5.0 [facility] Comment on above: Performed By: #### P T, PTT #### [facility] [address] [address] [address] Mirza Sadler Albumin/Globulin [Mass ratio] 1.1 {ratio} Normal [facility] Comment on above: Performed By: #### P T, PTT #### [facility] [address] [address] [address] Mirza Sadler ALP [Catalytic activity/Vol] 156 U/L Critically high 46-116 [facility] Comment on above: Performed By: #### P T, PTT #### [facility] [address] [place] [address] Dr. Mirza Sadler ALT [Catalytic activity/Vol] 24 U/L Normal 16-63 [facility] Comment on above: Performed By: #### P T, PTT #### [facility] [address] [address] [address] Mirza Sadler Anion gap [Moles/Vol] 16.7 mmol/L Normal [facility] Comment on above: Performed By: #### P T, PTT #### [facility] [address] [place] [address] Dr. Mirza Sadler AST [Catalytic activity/Vol] 21 U/L Normal 15-37 [facility] Comment on above: Performed By: #### P T, PTT #### [facility] [address] [address] [address] Mirza Sadler Bilirubin [Mass/Vol] 1.1 mg/dL Critically high 0.2-1.0 [facility] Comment on above: Performed By: #### P T, PTT #### [facility] [address] [address] [address] Mirza Sadler Calcium [Mass/Vol] 8.8 mg/dL Normal 8.5-10.1 [facility] Comment on above: Performed By: #### P T, PTT #### [facility] [address] [address] [address] Mirza Sadler Chloride [Moles/Vol] 105 mmol/L Normal 98-107 [facility] Comment on above: Performed By: #### P T, PTT #### [facility] [address] [address] [address] Mirza Sadler CO2 [Moles/Vol] 25.0 mmol/L Normal 21.0-32.0 [facility] Comment on above: Performed By: #### P T, PTT #### [facility] [address] [place] [address] Dr. Mirza Sadler Creatinine [Mass/Vol] 1.57 mg/dL Critically high 0.70-1.30 [facility] Comment on above: Performed By: #### P T, PTT #### [facility] [address] [place] [address] Dr. Mirza Sadler EGFR-AF BAHRAINI 53 mL/min/1.73m2 Critically low >=60 [facility] Comment on above: Performed By: #### P T, PTT #### [facility] [address] [place] [address] Dr. Mirza Sadler EGFR-NON AF BAHRAINI 44 mL/min/1.73m2 Critically low >=60 [facility] Comment on above: Performed By: #### P T, PTT #### [facility] [address] [place] [address] Dr. Mirza Sadler Globulin (S) [Mass/Vol] 3.9 g/dL Normal [facility] Comment on above: Performed By: #### P T, PTT #### [facility] [address] [place] [address] Dr. Mirza Sadler Glucose [Mass/Vol] 188 mg/dL Critically high 74-106 [facility] Comment on above: Performed By: #### P T, PTT #### [facility] [address] [place] [address] Dr. Mirza Sadler Potassium [Moles/Vol] 3.7 mmol/L Normal 3.5-5.1 [facility] Comment on above: Performed By: #### P T, PTT #### [facility] [address] [place] [address] Dr. Mirza Sadler Protein [Mass/Vol] 8.2 g/dL Normal 6.4-8.2 [facility] Comment on above: Performed By: #### P T, PTT #### [facility] [address] [place] [address] Dr. Mirza Sadler Sodium [Moles/Vol] 143 mmol/L Normal 136-145 [facility] Comment on above: Performed By: #### P T, PTT #### [facility] [address] [place] [address] Dr. Mirza Sadler Urea nitrogen [Mass/Vol] 20.0 mg/dL Critically high 7.0-18.0 [facility] Comment on above: Performed By: #### P T, PTT #### [facility] [address] [place] [address] Dr. Mirza Sadler Urea nitrogen/Creatinine [Mass ratio] 12.7 mg/mg Normal [facility] Comment on above: Performed By: #### P T, PTT #### [facility] [address] [place] [address] Dr. Mirza Sadler RESPIRATORY PANEL PLUSon Adenovirus Not detected Normal NOT DETECTED [facility] Comment on above: Performed By: #### P T, PTT #### [facility] [address] [place] [address] Dr. Mirza Ball Parapertusis Not detected Normal NOT DETECTED [facility] Comment on above: Performed By: #### P T, PTT #### [facility] [address] [place] [address] Dr. Mirza Ball Pertussis Not detected Normal NOT DETECTED [facility] Comment on above: Performed By: #### P T, PTT #### [facility] [address] [place] [address] Dr. Mirza Sadler Chlamydia Pneumoniae Not detected Normal NOT DETECTED [facility] Comment on above: Performed By: #### P T, PTT #### [facility] [address] [place] [address] Dr. Mirza Sadler Coronavirus 229E Not detected Normal NOT DETECTED [facility] Comment on above: Performed By: #### P T, PTT #### [facility] [address] [place] [address] Dr. Mirza Sadler Coronavirus HKU1 Not detected Normal NOT DETECTED [facility] Comment on above: Performed By: #### P T, PTT #### [facility] [address] [place] [address] Dr. Mirza Sadler Coronavirus NL63 Not detected Normal NOT DETECTED [facility] Comment on above: Performed By: #### P T, PTT #### [facility] [address] [place] [address] Dr. Mirza Sadler Coronavirus OC43 Not detected Normal NOT DETECTED [facility] Comment on above: Performed By: #### P T, PTT #### [facility] [address] [place] [address] Dr. Mirza Sadler Influenza A H1 2009 Not detected Normal NOT DETECTED [facility] Comment on above: Performed By: #### P T, PTT #### [facility] [address] [place] [address] Dr. Mirza Sadler Influenza A H3 Not detected Normal NOT DETECTED [facility] Comment on above: Performed By: #### P T, PTT #### [facility] [address] [place] [address] Dr. Mirza Sadler Influenza B Not detected Normal NOT DETECTED [facility] Comment on above: Performed By: #### P T, PTT #### [facility] [address] [place] [address] Dr. Mirza Sadler Metapneumovirus Not detected Normal NOT DETECTED [facility] Comment on above: Performed By: #### P T, PTT #### [facility] [address] [place] [address] Dr. Mirza Sadler Mycoplas. Pneumoniae Not detected Normal NOT DETECTED [facility] Comment on above: Performed By: #### P T, PTT #### [facility] [address] [place] [address] Dr. Mirza Sadler Parainfluenza 1 Not detected Normal NOT DETECTED [facility] Comment on above: Performed By: #### P T, PTT #### [facility] [address] [place] [address] Dr. Mirza Sadler Parainfluenza 2 Not detected Normal NOT DETECTED [facility] Comment on above: Performed By: #### P T, PTT #### [facility] [address] [place] [address] Dr. Mirza Sadler Parainfluenza 3 Not detected Normal NOT DETECTED [facility] Comment on above: Performed By: #### P T, PTT #### [facility] [address] [place] [address] Dr. Mirza Sadler Parainfluenza 4 Not detected Normal NOT DETECTED [facility] Comment on above: Performed By: #### P T, PTT #### [facility] [address] [place] [address] Dr. Mirza Sadler Rhino/Enterovirus Not detected Normal NOT DETECTED [facility] Comment on above: Performed By: #### P T, PTT #### [facility] [address] [place] [address] Dr. Mirza Sadler RP2 Header 1 RESPIRATORY PANEL: VIRUSES Normal [facility] Comment on above: Performed By: #### P T, PTT #### [facility] [address] [place] [address] Dr. Mirza Sadler RP2 Header 2 RESPIRATORY PANEL: BACTERIA Normal [facility] Comment on above: Performed By: #### P T, PTT #### [facility] [address] [place] [address] Dr. Mirza Sadler RSV Not detected Normal NOT DETECTED [facility] Comment on above: Performed By: #### P T, PTT #### [facility] [address] [place] [address] Dr. Mirza Sadler SARS-CoV-2 (COVID-19) RNA RAMO+probe Ql (Unsp spec) Not detected Normal NOT DETECTED [facility] Comment on above: Performed By: #### P T, PTT #### [facility] [address] [place] [address] Dr. Mirza Sadler TROPONIN, HIGH SENSITIVITYon 03-11-2022 HSTROP 11578.8 pg/mL Critically high 4.0-76.1 [facility] Comment on above: Result Comment: CUT- OFF POINTS HAVE BEEN ESTABLISHED BASED ON THE FOURTH UNIVERSAL DEFINITIONS OF MYOCARDIAL INFARCTION. THE UPPER REFERENCE LIMIT (URL) OF TROPONIN, DEFINED THE 99TH PERCENTILE OF cTnI DISTRIBUTION IN A REFERENCE POPULATION, HAS BEEN CONFIRMED THE DECISION THRESHOLD FOR OR DIAGNOSIS. Performed By: #### C MP, CMADM #### [facility] [address] [place], [place] [address] Dr. Mirza Sadler HSTROP 41.0 pg/mL Normal 4.0-76.1 [facility] Comment on above: Result Comment: CUT- OFF POINTS HAVE BEEN ESTABLISHED BASED ON THE FOURTH UNIVERSAL DEFINITIONS OF MYOCARDIAL INFARCTION. THE UPPER REFERENCE LIMIT (URL) OF TROPONIN, DEFINED THE 99TH PERCENTILE OF cTnI DISTRIBUTION IN A REFERENCE POPULATION, HAS BEEN CONFIRMED THE DECISION THRESHOLD FOR OR DIAGNOSIS. Performed By: #### P T, PTT #### [facility] [address] [address] [address] Mirza Sadler XR CHEST 1 Von [...] ACEVES Date: 2022-03-11 05:42 Normal [facility] NM MUGAon 03-09-2022 NM MUGA [...] SHANNON LANDIS Date: 2022-03-09 12:26 Normal [facility] CHEST WO CONon 03-02-2022 CT CHEST [...] by: HIGINIO FLANAGAN Date: 2022-03-02 08:52 Normal [facility] Creatinine and Glomerular fi ltration rate.predicted panel (S/P/Bld)Ordered By: Gagan Shahid on 01-17-2022 Creatinine [Mass/Vol] 1.53 mg/dL 0.64-1.27 [facility] Estimated glomerular filtrat ion rate (GFR) non- AmericanOrdered By: Gagan Shahid on 01-17-2022 GFR/1.73 sq M.predicted among non-blacks MDRD (S/P/Bld) [Vol rate/Area] 45 mL/Min [facility] Glucose Glucometer (BldC) [M ass/Vol]Ordered By: Gagan Shahid on 01-17-2022 Glucose [Mass/Vol] 178 mg/dL [facility] Comment on above: Random Glucose Refer ence Range is dependent on time and content of last meal. Glucose of more than 200 mg/dL in a nonstressed, ambulatory subject supports the diagnosis of Diabetes Mellitus. No Panel InformationOrdered By: Gagan Shahid on 01-17-2022 Estimated GFR () 55 mL/Min [facility] Comment on above: GFR estimated refere nce range: According to KDOQI guidelines, <60 ml/min/1.73m2 is sufficient to diagnose a patient with chronic kidney disease. Pharmacy Creatinine Clearance (Chem 42.[address] [facility] Serum or plasma anion gap de terminationOrdered By: Gagan Shahid on 01-17-2022 Anion gap [Moles/Vol] 12.0 mmol/L 6.0-15.0 [facility] Serum or plasma calcium radha urement (mass/volume)Ordered By: Gagan Shahid on 01-17-2022 Calcium [Mass/Vol] 9.0 mg/dL 8.2-10.2 [facility] Serum or plasma chloride shanae surement (moles/volume)Ordered By: Gagan Shahid on 01-17-2022 Chloride [Moles/Vol] 107 mmol/L 95-114 [facility] Serum or plasma glucose radha urement (mass/volume)Ordered By: Gagan Shahid on 01-17-2022 Glucose [Mass/Vol] 142 mg/dL 70-100 [facility] Comment on above: ADA recommended refe rence rangeRandom Glucose Reference Range is dependent on time and content of last meal. Glucose of more than 200 mg/dL in a nonstressed, ambulatory subject supports the diagnosis of Diabetes Mellitus. Serum or plasma potassium me asurement (moles/volume)Ordered By: Gagan Shahid on 01-17-2022 Potassium [Moles/Vol] 3.5 mmol/L 3.5-5.1 [facility] Serum or plasma sodium measu rement (moles/volume)Ordered By: Gagan Shahid on 01-17-2022 Sodium [Moles/Vol] 137 mmol/L 136-146 [facility] Serum or plasma total carbon dioxide measurement (moles/volume)Ordered By: Gagan Shahid on 01-17-2022 CO2 [Moles/Vol] 21.5 mmol/L 22.0-30.0 [facility] Serum or plasma urea nitroge n measurement (mass/volume)Ordered By: Gagan Shahid on 01-17-2022 Urea nitrogen [Mass/Vol] 24 mg/dL 12-[address] [facility] Activated partial thrombopla stin time (aPTT) in platelet poor plasma by coagulation aOrdered By: Gagan Shahid on 01-16-2022 aPTT Coag (PPP) [Time] 42.1 s 25.1-36.5 [facility] Basophils Auto (Bld) [#/Vol] Ordered By: Gagan Shahid on 01-16-2022 Basophils (Bld) [#/Vol] 0.0 10*3/uL 0.0-0.[address] [facility] Basophils/100 WBC Auto (Bld) Ordered By: Gagan Shahid on 01-16-2022 Basophils/100 WBC (Bld) 0.5 % . [facility] Creatine kinase [Enzymatic a ctivity/volume] in Serum or PlasmaOrdered By: Gagan Shahid on 01-16-2022 CK [Catalytic activity/Vol] 92 U/L [facility] Eosinophils Auto (Bld) [#/Vo l]Ordered By: Gagan Shahid on 01-16-2022 Eosinophils (Bld) [#/Vol] 0.2 10*3/uL 0.0-0.[address] [facility] Eosinophils/100 WBC Auto (Bl d)Ordered By: Gagan Shahid on 01-16-2022 Eosinophils/100 WBC (Bld) 2.4 % . [facility] Erythrocyte distribution wid th Auto (RBC) [Ratio]Ordered By: Gagan Shahid on 01-16-2022 Erythrocyte distribution width (RBC) [Ratio] 14.6 % 12.0-14.[address] [facility] Hematocrit Auto (Bld) [Volum e fraction]Ordered By: Gagan Shahid on 01-16-2022 Hematocrit (Bld) [Volume fraction] 43.4 % 38.8-50.[address] [facility] Hemoglobin [Mass/volume] in BloodOrdered By: Gagan Shahid on 01-16-2022 Hemoglobin (Bld) [Mass/Vol] 14.4 g/dL 13.0-17.[address] [facility] Laboratory - Chemistry and C hemistry - challengeOrdered By: Gagan Shahid on 01-16-2022 Magnesium [Mass/Vol] 1.9 mg/dL 1.6-2.6 [facility] - CoagulationOrde red By: Gagan Shahid on 01-16-2022 PT Coag (PPP) [Time] 15.7 s 9.0-12.9 [facility] - Hematology and Cell countsOrdered By: Gagan Shahid on 01-16-2022 Nucleated RBC/100 WBC (Bld) [Ratio] 0.1 % 0-0.[address] [facility] Leukocytes [#/volume] in Blo od by Automated countOrdered By: Gagan Shahid on 01-16-2022 WBC (Bld) [#/Vol] 8.2 10*3/uL 4.5-11.0 [facility] Lymphocytes Auto (Bld) [#/Vo l]Ordered By: Gagan Shahid on 01-16-2022 Lymphocytes (Bld) [#/Vol] 1.6 10*3/uL 1.00-4.[address] [facility] Lymphocytes/100 WBC Auto (Bl d)Ordered By: Gagan Shahid on 01-16-2022 Lymphocytes/100 WBC (Bld) 19.5 % . [facility] MCH Auto (RBC) [Entitic mass ]Ordered By: Gagan Shahid on 01-16-2022 MCH (RBC) [Entitic mass] 29.4 pg 27.5-35.[address] [facility] MCHC Auto (RBC) [Mass/Vol]Or dered By: Gagan Shahid on 01-16-2022 MCHC (RBC) [Mass/Vol] 33.2 g/dL 32.5-35.6 [facility] MCV Auto (RBC) [Entitic vol] Ordered By: Gagan Shahid on 01-16-2022 MCV (RBC) [Entitic vol] 88.5 fL 83.5-[address] [facility] Monocytes Auto (Bld) [#/Vol] Ordered By: Gagan Shahid on 01-16-2022 Monocytes (Bld) [#/Vol] 0.8 10*3/uL 0.0-0.[address] [facility] Monocytes/100 WBC Auto (Bld) Ordered By: Gagan Shahid on 01-16-2022 Monocytes/100 WBC (Bld) 9.1 % . [facility] Neutrophils Auto (Bld) [#/Vo l]Ordered By: Gagan Shahid on 01-16-2022 Neutrophils (Bld) [#/Vol] 5.6 10*3/uL 1.8-7.[address] [facility] Neutrophils/100 WBC Auto (Bl d)Ordered By: Gagan Shahid on 01-16-2022 Neutrophils/100 WBC (Bld) 68.5 % . [facility] No Panel InformationOrdered By: Gagan Shahid on 01-16-2022 Bedside Glucose Comment Glu2: cleaned meter [facility] Platelet mean volume Auto (B ld) [Entitic vol]Ordered By: Gagan Shahid on 01-16-2022 Platelet mean volume (Bld) [Entitic vol] 8.4 fL 6.6-10.[address] [facility] Platelet poor plasma interna tional normalized ratio (INR) by coagulation assay (relatOrdered By: Gagan Shahid on 01-16-2022 INR Coag (PPP) [Relative time] 1.4 {INR} [facility] Comment on above: INR Therapeutic [...] [#/Vol] 178 10*3/uL 150-[address] [facility] RBC Auto (Bld) [#/Vol]Ordere d By: Gagan Shahid on 01-16-2022 RBC (Bld) [#/Vol] 4.90 10*6/uL 3.90-5.60 [facility] Serum or plasma creatine kin ase MB (CKMB)/total creatine kinase (CK) ratio by calculaOrdered By: Gagan Shahid on 01-16-2022 CK.MB Calc [Catalytic fraction] 3.2 % 0.00-2.[address] [facility] Serum or plasma creatine kin ase MB measurement (mass/volume)Ordered By: Gagan Shahid on 01-16-2022 CK.MB [Mass/Vol] 3.0 ng/mL 0.6-6.3 [facility] Troponin I.cardiac [Mass/vol ume] in Serum or Plasma by High sensitivity methodOrdered By: Gagan Shahid on 01-16-2022 Troponin I.cardiac High sensitivity method [Mass/Vol] 525 pg/mL 0-[address] [facility] Comment on above: Critical valueresult calledat 1844 on 01/16/22 BNPon 01-15-2022 Natriuretic peptide B (Bld) [Mass/Vol] 1012.0 pg/mL Critically high <=900.0 [facility] Comment on above: Performed By: #### B PRICE CHANGER #### [facility] [address] [address] [address] Mirza Sadler CARDIAC PARUL ADMITon 022 CK [Catalytic activity/Vol] 93 U/L Normal 39-308 [facility] Comment on above: Performed By: #### C TEGAN MARIN #### [facility] [address] [address] [address] Mirza Sadler CK.MB [Mass/Vol] 1.67 ng/mL Normal <=3.60 [facility] Comment on above: Performed By: #### C TEGAN MARIN #### [facility] [address] [place] [address] Dr. Mirza Sadler HSTROP 17.1 pg/mL Normal 4.0-76.1 [facility] Comment on above: Result Comment: CUT- OFF POINTS HAVE BEEN ESTABLISHED BASED ON THE FOURTH UNIVERSAL DEFINITIONS OF MYOCARDIAL INFARCTION. THE UPPER REFERENCE LIMIT (URL) OF TROPONIN, DEFINED THE 99TH PERCENTILE OF cTnI DISTRIBUTION IN A REFERENCE POPULATION, HAS BEEN CONFIRMED THE DECISION THRESHOLD FOR OR DIAGNOSIS. Performed By: #### C TEGAN MARIN #### [facility] [address] [place] [address] Dr. Mirza Sadler RACHEL 63 ng/mL Normal 16-96 [facility] Comment on above: Performed By: #### C TEGAN MARIN #### [facility] [address] [place] [address] Dr. Mirza Sadler CBC AUTO DIFFon 01-15-2022 BASO # 0.1 103/ul Normal 0.0-0.1 [facility] Comment on above: Performed By: #### E RUR #### [facility] [address] [place] [address] Dr. Mirza Sadler Basophils/100 WBC (Bld) 0.9 % Normal 0.2-2.0 [facility] Comment on above: Performed By: #### E RUR #### [facility] [address] [place] [address] Dr. Mirza Sadler EO # 0.3 103/ul Normal 0.0-0.7 [facility] Comment on above: Performed By: #### E RUR #### [facility] [address] [place] [address] Dr. Mirza Sadler Eosinophils/100 WBC (Bld) 3.1 % Normal 0.9-7.0 [facility] Comment on above: Performed By: #### E RUR #### [facility] [address] [place] [address] Dr. Mirza Sadler Erythrocyte distribution width (RBC) [Ratio] 14.2 % Normal 11.0-15.0 [facility] Comment on above: Performed By: #### E RUR #### [facility] [address] [address] [address] Mirza Sadler Hematocrit (Bld) [Volume fraction] 44.4 % Normal 42.0-54.0 [facility] Comment on above: Performed By: #### E RUR #### [facility] [address] [place] [address] Dr. Mirza Sadler Hemoglobin (Bld) [Mass/Vol] 14.4 g/dL Normal 14.0-18.0 [facility] Comment on above: Performed By: #### E RUR #### [facility] [address] [place] [address] Dr. Mirza Sadler IG # 0.03 10e3/ul Normal 0.00-0.03 [facility] Comment on above: Performed By: #### E RUR #### [facility] [address] [place] [address] Dr. Mirza Sadler IG % 0.3 % Normal 0.0-0.5 [facility] Comment on above: Performed By: #### E RUR #### [facility] [address] [place] [address] Dr. Mirza Sadler LYMPH # 1.6 103/ul Normal 1.2-3.8 [facility] Comment on above: Performed By: #### E RUR #### [facility] [address] [place] [address] Dr. Mirza Sadler Lymphocytes/100 WBC (Bld) 16.8 % Critically low 20.5-60.0 [facility] Comment on above: Performed By: #### E RUR #### [facility] [address] [place] [address] Dr. Mirza Sadler MANUAL DIFF REQ NO Normal [facility] Comment on above: Performed By: #### E RUR #### [facility] [address] [place] [address] Dr. Mirza Sadler MCH (RBC) [Entitic mass] 29.4 pg Normal 25.9-34.0 [facility] Comment on above: Performed By: #### E RUR #### [facility] [address] [place], [place] [id number] Dr. Mirza Sadler MCHC (RBC) [Mass/Vol] 32.4 g/dL Normal 29.9-35.2 [facility] Comment on above: Performed By: #### E RUR #### [facility] [address] [place] [address] Dr. Mirza Sadler MCV (RBC) [Entitic vol] 90.6 fL Normal 80.0-94.0 [facility] Comment on above: Performed By: #### E RUR #### [facility] [address] [place] [address] Dr. Mirza Sadler MONO # 0.5 103/ul Normal 0.3-0.8 [facility] Comment on above: Performed By: #### E RUR #### [facility] [address] [place] [address] Dr. Mirza Sadler Monocytes/100 WBC (Bld) 5.9 % Normal 1.7-12.0 [facility] Comment on above: Performed By: #### E RUR #### [facility] [address] [place] [address] Dr. Mirza Sadler NEUT # 6.7 103/ul Critically high 1.4-6.5 [facility] Comment on above: Performed By: #### E RUR #### [facility] [address] [place] [address] Dr. Mirza Sadler Neutrophils/100 WBC (Bld) 73.0 % Normal 43.0-75.0 [facility] Comment on above: Performed By: #### E RUR #### [facility] [address] [place] [address] Dr. Mirza Sadler Platelet mean volume (Bld) [Entitic vol] 10.0 fL Normal 9.5-13.5 [facility] Comment on above: Performed By: #### E RUR #### [facility] [address] [place] [address] Dr. Mirza Sadler PLT 190 103/ul Normal 150-450 [facility] Comment on above: Performed By: #### E RUR #### [facility] [address] [place], [place] [address] Dr. Mirza Sadler RBC 4.90 106/ul Normal 4.70-6.10 [facility] Comment on above: Performed By: #### E RUR #### [facility] [address] [place], [place] [address] Dr. Mirza Sadler WBC 9.2 103/ul Normal 4.0-11.0 [facility] Comment on above: Performed By: #### E RUR #### [facility] [id number] Mirza Sadler [address] CHEST WO CONon [...] HIGINIO FLANAGAN Date: 2022-01-15 08:19 Normal [facility] CULTURE BLOODon 01-15-2022 Microscopic examination of blood, culture Culture Observations: NO GROWTH AT 5 DAYS. Normal [facility] Comment on above: Performed By: #### H STROPN #### [facility] [address] [place] [address] Dr. Mirza Sadler Microscopic examination of blood, culture Culture Observations: NO GROWTH AT 5 DAYS. Normal [facility] Comment on above: Performed By: #### B LDCX1 #### [facility] [address] [place] [address] Dr. Mirza Sadler Covid-19 PCR ([facility])on 12-30 SARS-CoV-2 (COVID-19) RNA RAMO+probe Ql (Unsp spec) Not detected Normal NOT DETECTED [facility] Comment on above: Result Comment: When diagnostic [...] for this test is supported by the Web Operations Specialist of Health and Human Service's declaration that [...] longer be used). Performed By: #### B PRICE CHANGER #### [facility] [address] [place] [address] Dr. Mirza Sadler ER URINE PROFILEon 2 Bilirubin Ql (U) Negative Normal NEGATIVE [facility] Comment on above: Performed By: #### C MP, CMADM #### [facility] [address] [place] [address] Dr. Mirza Sadler Clarity (U) CLEAR Normal CLEAR [facility] Comment on above: Performed By: #### C MP, CMADM #### [facility] [address] [place] [address] Dr. Mirza Sadler Color (U) LT. YELLOW Normal YELLOW [facility] Comment on above: Performed By: #### C MP, CMADM #### [facility] [address] [place] [address] Dr. Mirza Sadler ERUAHD A micrscopic examina tion will be performed if indicated. Normal [facility] Comment on above: Performed By: #### C MP, CMADM #### [facility] [address] [place] [address] Dr. Mirza Sadler Glucose Ql (U) >1000 Abnormal NEGATIVE [facility] Comment on above: Performed By: #### C MP, CMADM #### [facility] [address] [place] [address] Dr. Mirza Sadler Hemoglobin Ql (U) Negative Normal NEGATIVE [facility] Comment on above: Performed By: #### C MP, CMADM #### [facility] [address] [place] [address] Dr. Mirza Sadler Ketones Ql (U) TRACE Abnormal NEGATIVE [facility] Comment on above: Performed By: #### C MP, CMADM #### [facility] [address] [place] [address] Dr. Mirza Sadler LEUKOCYTES Negative Normal NEGATIVE [facility] Comment on above: Performed By: #### C MP, CMADM #### [facility] [address] [place] [address] Dr. Mirza Sadler Nitrite Ql (U) Negative Normal NEGATIVE [facility] Comment on above: Performed By: #### C MP, CMADM #### [facility] [address] [place] [address] Dr. Mirza Sadler pH (U) 5.5 [pH] Normal 5-9 [facility] Comment on above: Performed By: #### C MP, CMADM #### [facility] [address] [address] [address] Mirza Sadler SPEC GRAVITY 1.020 Normal 1.005-<=1. 025 [facility] Comment on above: Performed By: #### C TANIA, CMADM #### [facility] [address] [place] [address] Dr. Mirza Sadler UA PROTEIN TRACE Normal NEGATIVE/ TRACE [facility] Comment on above: Performed By: #### C TANIA, CMADM #### [facility] [address] [place] [address] Dr. Mirza Sadler UR MICRO IND NOT INDICATED Normal [facility] Comment on above: Performed By: #### C TANIA, CMADM #### [facility] [address] [place] [address] Dr. Mirza Sadler Urobilinogen Qn (U) 0.2 {Luisito'U}/dL Normal 0.2 - 1. 0 [facility] Comment on above: Performed By: #### C TANIA, CMADM #### [facility] [address] [place] [address] Dr. Mirza Sadler LACTATE/LACTIC ACIDon 2021 Lactate [Moles/Vol] 0.8 mmol/L Normal 0.4-1.9 [facility] Comment on above: Performed By: #### P T, PTT #### [facility] [address] [place] [address] Dr. Mirza Sadler PROF 14(COMP METB)on 022 Albumin [Mass/Vol] 4.4 g/dL Normal 3.4-5.0 [facility] Comment on above: Performed By: #### C TANIA, CMADM #### [facility] [address] [place] [address] Dr. Mirza Sadler Albumin/Globulin [Mass ratio] 1.3 {ratio} Normal [facility] Comment on above: Performed By: #### C TANIA, CMADM #### [facility] [address] [place] [address] Dr. Mirza Sadler ALP [Catalytic activity/Vol] 155 U/L Critically high 46-116 [facility] Comment on above: Performed By: #### C MP, CMADM #### [facility] [address] [address] [address] Mirza Sadler ALT [Catalytic activity/Vol] 27 U/L Normal 16-63 [facility] Comment on above: Performed By: #### C MP, CMADM #### [facility] [address] [address] [address] Mirza Sadler Anion gap [Moles/Vol] 14.9 mmol/L Normal [facility] Comment on above: Performed By: #### C MP, CMADM #### [facility] [address] [address] [address] Mirza Sadler AST [Catalytic activity/Vol] 22 U/L Normal 15-37 [facility] Comment on above: Performed By: #### C MP, CMADM #### [facility] [address] [address] [address] Mirza Sadler Bilirubin [Mass/Vol] 0.8 mg/dL Normal 0.2-1.0 [facility] Comment on above: Performed By: #### C TANIA, CMADM #### [facility] [address] [address] [address] Mirza Sadler Calcium [Mass/Vol] 8.8 mg/dL Normal 8.5-10.1 [facility] Comment on above: Performed By: #### C TANIA, CMADM #### [facility] [address] [address] [address] Mirza Sadler Chloride [Moles/Vol] 106 mmol/L Normal 98-107 [facility] Comment on above: Performed By: #### C MP, CMADM #### [facility] [address] [address] [address] Mirza Sadler CO2 [Moles/Vol] 23.9 mmol/L Normal 21.0-32.0 [facility] Comment on above: Performed By: #### C MP, CMADM #### [facility] [address] [address] [address] Mirza Sadler Creatinine [Mass/Vol] 1.51 mg/dL Critically high 0.70-1.30 [facility] Comment on above: Performed By: #### C MP, CMADM #### [facility] [address] [address] [address] Mirza Sadler EGFR-AF BAHRAINI 56 mL/min/1.73m2 Critically low >=60 [facility] Comment on above: Performed By: #### C MP, CMADM #### [facility] [address] [address] [address] Mirza Sadler EGFR-NON AF BAHRAINI 46 mL/min/1.73m2 Critically low >=60 [facility] Comment on above: Performed By: #### C MP, CMADM #### [facility] [address] [address] [address] Mirza Sadler Globulin (S) [Mass/Vol] 3.4 g/dL Normal [facility] Comment on above: Performed By: #### C MP, CMADM #### [facility] [address] [place] [address] Dr. Mirza Sadler Glucose [Mass/Vol] 189 mg/dL Critically high 74-106 [facility] Comment on above: Performed By: #### C MP, CMADM #### [facility] [address] [place] [address] Dr. Mirza Sadler Potassium [Moles/Vol] 3.8 mmol/L Normal 3.5-5.1 [facility] Comment on above: Performed By: #### C MP, CMADM #### [facility] [address] [place] [address] Dr. Mirza Sadler Protein [Mass/Vol] 7.8 g/dL Normal 6.4-8.2 [facility] Comment on above: Performed By: #### C MP, CMADM #### [facility] [address] [place] [address] Dr. Mirza Sadler Sodium [Moles/Vol] 141 mmol/L Normal 136-145 [facility] Comment on above: Performed By: #### C MP, CMADM #### [facility] [address] [place] [address] Dr. Mirza Sadler Urea nitrogen [Mass/Vol] 22.0 mg/dL Critically high 7.0-18.0 [facility] Comment on above: Performed By: #### C TANIA, TEGAN #### [facility] [address] [place] [address] Dr. Mirza Sadler Urea nitrogen/Creatinine [Mass ratio] 14.6 mg/mg Normal [facility] Comment on above: Performed By: #### C TEGAN MARIN #### [facility] [address] [place] [address] Dr. Mirza Sadler PROTIMEon 01-15-2022 INR Coag (PPP) [Relative time] 1.10 {INR} Normal [facility] Comment on above: Performed By: #### E RUR #### [facility] [address] [place] [address] Dr. Mirza Sadler INR GUIDELINES SEE BELOW Normal [facility] Comment on above: Result Comment: RIVKA RED INR: 2.0 - 3.0 CONDITIONS NOT LISTED BELOW 2.5 - 3.5 FOR PROSTHETIC HEART VALVE REPLACEMENT 2.5 - 3.5 RECURRENT THROMBOSIS Performed By: #### E RUR #### [facility] [address] [place] [address] Dr. Mirza Sadler PT Coag (PPP) [Time] 11.8 s Critically high 9.0-11.6 [facility] Comment on above: Performed By: #### E RUR #### [facility] [address] [place] [address] Dr. Mirza Sadler PTTon 01-15-2022 aPTT Coag (Bld) [Time] 29.0 s Normal 22.3-36.2 [facility] Comment on above: Performed By: #### E RUR #### [facility] [address] [place] [address] Dr. Mirza Sadler TROPONIN, HIGH SENSITIVITYon 01-15-2022 HSTROP 1786.2 pg/mL Critically high 4.0-76.1 [facility] Comment on above: Result Comment: CUT- OFF POINTS HAVE BEEN ESTABLISHED BASED ON THE FOURTH UNIVERSAL DEFINITIONS OF MYOCARDIAL INFARCTION. THE UPPER REFERENCE LIMIT (URL) OF TROPONIN, DEFINED THE 99TH PERCENTILE OF cTnI DISTRIBUTION IN A REFERENCE POPULATION, HAS BEEN CONFIRMED THE DECISION THRESHOLD FOR OR DIAGNOSIS. Performed By: #### H STROPN #### [facility] [address] [id number] [address] Mirza Sadler HSTROP 669.3 pg/mL Critically high 4.0-76.1 [facility] Comment on above: Result Comment: CUT- OFF POINTS HAVE BEEN ESTABLISHED BASED ON THE FOURTH UNIVERSAL DEFINITIONS OF MYOCARDIAL INFARCTION. THE UPPER REFERENCE LIMIT (URL) OF TROPONIN, DEFINED THE 99TH PERCENTILE OF cTnI DISTRIBUTION IN A REFERENCE POPULATION, HAS BEEN CONFIRMED THE DECISION THRESHOLD FOR OR DIAGNOSIS. Performed By: #### H STROPN #### [facility] [id number] [address] Mirza Sadler XR CHEST 1 Von [...] WAYNE CASEY Date: 2022-01-15 06:42 Normal [facility] A1C HEMOGLOBINon 12-18-2021 HbA1c (Bld) [Mass fraction] 6.2 % [employer] Other Glucose - FINGER STICKon Glucose [Mass/Vol] 120 mg/dL [employer] Other HbA1c (Bld) [Mass fraction]o n 12-18-2021 A1C HEMOGLOBIN [employer] Other XR CHEST 2 Von 12-08-2021 XR [...] HIGINIO FLANAGAN Date: 2021-12-08 16:07 Normal [facility] PTH INTACTon 12-01-2021 PTH, Intact 15 pg/mL Normal 15-65 [facility] Comment on above: Performed By: #### C MP, CMADM #### [facility] [address] [address] [address] Mirza Sadler VIT D 25-OH LABCORPon 2021 Vitamin D, 25-Hydroxy 41.2 ng/mL Normal 30.0-100.0 [facility] Comment on above: Result Comment: Cielo min D deficiency has been defined by the [place] [employer] and an Endocrine Society practice guideline as a level of serum 25-OH vitamin D less than 20 ng/mL (1,2). The Endocrine Society went on to further define vitamin D insufficiency as a level between 21 and 29 ng/mL (2). 1. IOM ([place] [employer]). 2010. Dietary reference intakes for calcium and D. [place]: The National Academies Press. 2. Noemy MF, Sonam [place], Jake HERMOSILLO, et al. Evaluation, treatment, and prevention of vitamin D deficiency: an Endocrine Society clinical practice guideline. JCEM. 2010; 96(7):1911-30. Performed By: #### P T, PTT #### [facility] [address] [address] [address] Mirza Sadler HEMOGRAM AND PLATELon 2021 Hematocrit (Bld) [Volume fraction] 39.9 % Critically low 42.0-54.0 [facility] Comment on above: Performed By: #### P T, PTT #### [facility] [address] [id number] [address] Mirza Sadler Hemoglobin (Bld) [Mass/Vol] 13.1 g/dL Critically low 14.0-18.0 [facility] Comment on above: Performed By: #### P T, PTT #### [facility] [address] [place] [address] Dr. Mirza Sadler MCH (RBC) [Entitic mass] 29.5 pg Normal 25.9-34.0 [facility] Comment on above: Performed By: #### P T, PTT #### [facility] [address] [place] [address] Dr. Mirza Sadler MCHC (RBC) [Mass/Vol] 32.8 g/dL Normal 29.9-35.2 [facility] Comment on above: Performed By: #### P T, PTT #### [facility] [address] [place] [address] Dr. Mirza Sadler MCV (RBC) [Entitic vol] 89.9 fL Normal 80.0-94.0 [facility] Comment on above: Performed By: #### P T, PTT #### [facility] [address] [place] [address] Dr. Mirza Sadler PLT 182 103/ul Normal 150-450 [facility] Comment on above: Performed By: #### P T, PTT #### [facility] [address] [place] [address] Dr. Mirza Sadler RBC 4.44 106/ul Critically low 4.70-6.10 [facility] Comment on above: Performed By: #### P T, PTT #### [facility] [address] [place] [address] Dr. Mirza Sadler WBC 6.9 103/ul Normal 4.0-11.0 [facility] Comment on above: Performed By: #### P T, PTT #### [facility] [address] [place] [address] Dr. Mirza Sadler MAGNESIUMon 11-30-2021 Magnesium [Mass/Vol] 1.8 mg/dL Normal 1.8-2.4 [facility] Comment on above: Performed By: #### P T, PTT #### [facility] [address] [address] [address] Mirza Sadler RENAL FUNCTION PANELon 11-30 Albumin [Mass/Vol] 3.9 g/dL Normal 3.4-5.0 [facility] Comment on above: Performed By: #### P T, PTT #### [facility] [address] [address] [address] Mirza Sadler Calcium [Mass/Vol] 9.0 mg/dL Normal 8.5-10.1 [facility] Comment on above: Performed By: #### P T, PTT #### [facility] [address] [address] [address] Mirza Sadler Chloride [Moles/Vol] 107 mmol/L Normal 98-107 [facility] Comment on above: Performed By: #### P T, PTT #### [facility] [address] [address] [address] Mirza Sadler CO2 [Moles/Vol] 26.2 mmol/L Normal 21.0-32.0 [facility] Comment on above: Performed By: #### P T, PTT #### [facility] [address] [address] [address] Mirza Sadler Creatinine [Mass/Vol] 1.55 mg/dL Critically high 0.70-1.30 [facility] Comment on above: Performed By: #### P T, PTT #### [facility] [address] [address] [address] Mirza Sadler EGFR-AF BAHRAINI 54 mL/min/1.73m2 Critically low >=60 [facility] Comment on above: Performed By: #### P T, PTT #### [facility] [address] [address] [address] Mirza Sadler EGFR-NON AF BAHRAINI 45 mL/min/1.73m2 Critically low >=60 [facility] Comment on above: Performed By: #### P T, PTT #### [facility] [address] [address] [address] Mirza Sadler Glucose [Mass/Vol] 166 mg/dL Critically high 74-106 [facility] Comment on above: Performed By: #### P T, PTT #### [facility] [address] [place] [address] Dr. Mirza Sadler Phosphate [Mass/Vol] 3.7 mg/dL Normal 2.6-4.7 [facility] Comment on above: Performed By: #### P T, PTT #### [facility] [address] [place] [address] Dr. Mirza Sadler Potassium [Moles/Vol] 4.2 mmol/L Normal 3.5-5.1 [facility] Comment on above: Performed By: #### P T, PTT #### [facility] [address] [place] [address] Dr. Mirza Sadler Sodium [Moles/Vol] 142 mmol/L Normal 136-145 [facility] Comment on above: Performed By: #### P T, PTT #### [facility] [address] [place] [address] Dr. Mirza Sadler Urea nitrogen [Mass/Vol] 16.0 mg/dL Normal 7.0-18.0 [facility] Comment on above: Performed By: #### P T, PTT #### [facility] [address] [place] [address] Dr. Mirza Sadler UA RANDOM W/MICROSCOPICon BACTERIA NONE SEEN Normal NONE SEEN [facility] Comment on above: Performed By: #### B LDCX2 #### [facility] [address] [place] [address] Dr. Mirza Sadler Bilirubin Ql (U) Negative Normal NEGATIVE [facility] Comment on above: Performed By: #### B LDCX2 #### [facility] [address] [place] [address] Dr. Mirza Sadler CAST NONE SEEN Normal NONE SEEN [facility] Comment on above: Performed By: #### B LDCX2 #### [facility] [address] [place] [address] Dr. Mirza Sadler Clarity (U) CLEAR Normal CLEAR [facility] Comment on above: Performed By: #### B LDCX2 #### [facility] [address] [place] [address] Dr. Mirza Sadler Color (U) LT. YELLOW Normal YELLOW [facility] Comment on above: Performed By: #### B LDCX2 #### [facility] [address] [place] [address] Dr. Mirza Sadler Crystals LM Nom (Urine sed) NONE SEEN Normal NONE SEEN [facility] Comment on above: Performed By: #### B LDCX2 #### [facility] [address] [place] [address] Dr. Mirza Sadler Epithelial cells LM Ql (Urine sed) RARE Normal NONE SEEN /RARE [facility] Comment on above: Performed By: #### B LDCX2 #### [facility] [address] [place] [address] Dr. Mirza Sadler Glucose Ql (U) >1000 Abnormal NEGATIVE [facility] Comment on above: Performed By: #### B LDCX2 #### [facility] [address] [place] [address] Dr. Mirza Sadler Hemoglobin Ql (U) Negative Normal NEGATIVE [facility] Comment on above: Performed By: #### B LDCX2 #### [facility] [address] [place] [address] Dr. Mirza Sadler Ketones Ql (U) Negative Normal NEGATIVE [facility] Comment on above: Performed By: #### B LDCX2 #### [facility] [address] [place] [address] Dr. Mirza Sadler LEUKOCYTES Negative Normal NEGATIVE [facility] Comment on above: Performed By: #### B LDCX2 #### [facility] [address] [place] [address] Dr. Mirza Sadler MUCOUS NONE SEEN Normal NONE SEEN [facility] Comment on above: Performed By: #### B LDCX2 #### [facility] [address] [place] [address] Dr. Mirza Sadler Nitrite Ql (U) Negative Normal NEGATIVE [facility] Comment on above: Performed By: #### B LDCX2 #### [facility] [address] [place] [address] Dr. Mirza Sadler pH (U) 5.5 [pH] Normal 5-9 [facility] Comment on above: Performed By: #### B LDCX2 #### [facility] [address] [place] [address] Dr. Mirza Sadler RBC NONE SEEN Abnormal 0-2 [facility] Comment on above: Performed By: #### B LDCX2 #### [facility] [address] [place] [address] Dr. Mirza Sadler SPEC GRAVITY 1.015 Normal 1.005-<=1. 025 [facility] Comment on above: Performed By: #### B LDCX2 #### [facility] [address] [place] [address] Dr. Mirza Sadler UA PROTEIN Negative Normal NEGATIVE/ TRACE [facility] Comment on above: Performed By: #### B LDCX2 #### [facility] [address] [place] [address] Dr. Mirza Sadler Urobilinogen Qn (U) 0.2 {Luisito'U}/dL Normal 0.2 - 1. 0 [facility] Comment on above: Performed By: #### B LDCX2 #### [facility] [address] [place] [address] Dr. Mirza Sadler WBC NONE SEEN Normal NONE SEEN [facility] Comment on above: Performed By: #### B LDCX2 #### [facility] [address] [place] [address] Dr. Mirza Sadler URINE T PROTEIN CREAT RATIOo n 11-30-2021 Protein (U) [Mass/Vol] 22.4 mg/dL Critically high <=12.0 [facility] Comment on above: Performed By: #### U RTPCR #### [facility] [address] [place] [address] Dr. Mirza Sadler UR PROT CREAT RAT 0.31 Normal [facility] Comment on above: Performed By: #### U RTPCR #### [facility] [address] [place] [address] Dr. Mirza Sadler URINE CREAT 73.05 mg/dL Normal 20.00-300. 00 [facility] Comment on above: Performed By: #### U RTPCR #### [facility] [address] [address] [address] Mirza Sadler NM HEPATOBILIARY SCAN W [...] HIGINIO FLANAGAN Date: 2021-11-24 11:55 Normal [facility] [place] BNPon 10-27-2021 Natriuretic peptide B (Bld) [Mass/Vol] 574.0 pg/mL Normal <=900.0 [facility] Comment on above: Performed By: #### P T, PTT #### [facility] [address] [address] [address] Mirza Sadler CARDIAC PARUL ADMITon 022 CK [Catalytic activity/Vol] 70 U/L Normal 39-308 [facility] Comment on above: Performed By: #### P T, PTT #### [facility] [address] [address] [address] Mirza Sadler CK.MB [Mass/Vol] 1.10 ng/mL Normal <=3.60 [facility] Comment on above: Performed By: #### P T, PTT #### [facility] [address] [address] [address] Mirza Sadler HSTROP 22.3 pg/mL Normal 4.0-76.1 [facility] Comment on above: Result Comment: CUT- OFF POINTS HAVE BEEN ESTABLISHED BASED ON THE FOURTH UNIVERSAL DEFINITIONS OF MYOCARDIAL INFARCTION. THE UPPER REFERENCE LIMIT (URL) OF TROPONIN, DEFINED THE 99TH PERCENTILE OF cTnI DISTRIBUTION IN A REFERENCE POPULATION, HAS BEEN CONFIRMED THE DECISION THRESHOLD FOR OR DIAGNOSIS. Performed By: #### P T, PTT #### [facility] [address] [place] [address] Dr. Mirza Sadler RACHEL 81 ng/mL Normal 16-96 [facility] Comment on above: Performed By: #### P T, PTT #### [facility] [address] [place] [address] Dr. Mirza Sadler CBC AUTO DIFFon 10-27-2021 BASO # 0.1 103/ul Normal 0.0-0.1 [facility] Comment on above: Performed By: #### E RUR #### [facility] [address] [place] [address] Dr. Mirza Sadler Basophils/100 WBC (Bld) 0.4 % Normal 0.2-2.0 [facility] Comment on above: Performed By: #### E RUR #### [facility] [address] [place] [address] Dr. Mirza Sadler EO # 0.1 103/ul Normal 0.0-0.7 [facility] Comment on above: Performed By: #### E RUR #### [facility] [address] [place] [address] Dr. Mirza Sadler Eosinophils/100 WBC (Bld) 0.4 % Critically low 0.9-7.0 [facility] Comment on above: Performed By: #### E RUR #### [facility] [address] [place] [address] Dr. Mirza Sadler Erythrocyte distribution width (RBC) [Ratio] 14.1 % Normal 11.0-15.0 [facility] Comment on above: Performed By: #### E RUR #### [facility] [address] [place] [address] Dr. Mirza Sadler Hematocrit (Bld) [Volume fraction] 41.0 % Critically low 42.0-54.0 [facility] Comment on above: Performed By: #### E RUR #### [facility] [address] [place] [address] Dr. Mirza Sadler Hemoglobin (Bld) [Mass/Vol] 14.1 g/dL Normal 14.0-18.0 [facility] Comment on above: Performed By: #### E RUR #### [facility] [address] [place] [address] Dr. Mirza Sadler IG # 0.05 10e3/ul Critically high 0.00-0.03 [facility] Comment on above: Performed By: #### E RUR #### [facility] [address] [place] [address] Dr. Mirza Sadler IG % 0.4 % Normal 0.0-0.5 [facility] Comment on above: Performed By: #### E RUR #### [facility] [address] [place] [address] Dr. Mirza Sadler LYMPH # 0.9 103/ul Critically low 1.2-3.8 [facility] Comment on above: Performed By: #### E RUR #### [facility] [address] [place] [address] Dr. Mirza Sadler Lymphocytes/100 WBC (Bld) 6.6 % Critically low 20.5-60.0 [facility] Comment on above: Performed By: #### E RUR #### [facility] [address] [place] [address] Dr. Mirza Sadler MANUAL DIFF REQ NO Normal [facility] Comment on above: Performed By: #### E RUR #### [facility] [address] [place] [address] Dr. Mirza Sadler MCH (RBC) [Entitic mass] 29.7 pg Normal 25.9-34.0 [facility] Comment on above: Performed By: #### E RUR #### [facility] [address] [place] [address] Dr. Mirza Sadler MCHC (RBC) [Mass/Vol] 34.4 g/dL Normal 29.9-35.2 [facility] Comment on above: Performed By: #### E RUR #### [facility] [address] [place] [address] Dr. Mirza Sadler MCV (RBC) [Entitic vol] 86.3 fL Normal 80.0-94.0 [facility] Comment on above: Performed By: #### E RUR #### [facility] [address] [place] [address] Dr. Mirza Sadler MONO # 0.4 103/ul Normal 0.3-0.8 [facility] Comment on above: Performed By: #### E RUR #### [facility] [address] [place] [address] Dr. Mirza Sadlre Monocytes/100 WBC (Bld) 2.6 % Normal 1.7-12.0 [facility] Comment on above: Performed By: #### E RUR #### [facility] [address] [place] [address] Dr. Mirza Sadler NEUT # 12.2 103/ul Critically high 1.4-6.5 [facility] Comment on above: Performed By: #### E RUR #### [facility] [address] [place] [address] Dr. Mirza Sadler Neutrophils/100 WBC (Bld) 89.6 % Critically high 43.0-75.0 [facility] Comment on above: Performed By: #### E RUR #### [facility] [address] [place] [address] Dr. Mirza Sadler Platelet mean volume (Bld) [Entitic vol] 9.7 fL Normal 9.5-13.5 [facility] Comment on above: Performed By: #### E RUR #### [facility] [address] [place] [address] Dr. Mirza Sadler PLT 183 103/ul Normal 150-450 [facility] Comment on above: Performed By: #### E RUR #### [facility] [address] [place] [address] Dr. Mirza Sadler RBC 4.75 106/ul Normal 4.70-6.10 [facility] Comment on above: Performed By: #### E RUR #### [facility] [address] [place] [address] Dr. Mirza Sadler WBC 13.7 103/ul Critically high 4.0-11.0 [facility] Comment on above: Performed By: #### E RUR #### [facility] [address] [place] [address] Dr. Mirza Sadler CULTURE BLOODon 10-27-2021 Microscopic examination of blood, culture Culture Observations: NO GROWTH AT 5 DAYS. Normal [facility] Comment on above: Performed By: #### B LDCX2 #### [facility] [address] [place] [address] Dr. Mirza Sadler Performed By: #### H STROPN #### [facility] [address] [place] [address] Dr. Mirza Sadler Covid-19 PCR [facility]30 SARS-CoV-2 (COVID-19) RNA RAMO+probe Ql (Unsp spec) Not detected Normal NOT DETECTED [facility] Comment on above: Result Comment: When diagnostic [...] for this test is supported by the [place] of Health and Human Service's declaration that [...] Performed By: #### P T, PTT #### [facility] [address] [place] [address] Dr. Mirza Sadler ER URINE PROFILEon 2 Bilirubin Ql (U) Negative Normal NEGATIVE [facility] Comment on above: Performed By: #### H STROPN #### [facility] [address] [address] [address] Mirza Sadler Clarity (U) CLEAR Normal CLEAR [facility] Comment on above: Performed By: #### H STROPN #### [facility] [address] [address] [address] Mirza Sadler Color (U) YELLOW Normal YELLOW [facility] Comment on above: Performed By: #### H STROPN #### [facility] [address] [address] [address] Mirza Sadler ERUAHD A micrscopic examina tion will be performed if indicated. Normal [facility] Comment on above: Performed By: #### H STROPN #### [facility] [address] [place] [address] Dr. Mirza aSdler Glucose Ql (U) >1000 Abnormal NEGATIVE [facility] Comment on above: Performed By: #### H STROPN #### [facility] [address] [address] [address] Mirza Sadler Hemoglobin Ql (U) Negative Normal NEGATIVE [facility] Comment on above: Performed By: #### H STROPN #### [facility] [address] [place] [address] Dr. Mirza Sadler Ketones Ql (U) TRACE Abnormal NEGATIVE [facility] Comment on above: Performed By: #### H STROPN #### [facility] [address] [address] [address] Mirza Sadler LEUKOCYTES Negative Normal NEGATIVE [facility] Comment on above: Performed By: #### H STROPN #### [facility] [address] [address] [address] Mirza Sadler Nitrite Ql (U) Negative Normal NEGATIVE [facility] Comment on above: Performed By: #### H STROPN #### [facility] [address] [place] [address] Dr. Mirza Sadler pH (U) 5.5 [pH] Normal 5-9 [facility] Comment on above: Performed By: #### H STROPN #### [facility] [address] [place] [address] Dr. Mirza Sadler SPEC GRAVITY 1.010 Normal 1.005-<=1. 025 [facility] Comment on above: Performed By: #### H STROPN #### [facility] [address] [place] [address] Dr. Mirza Sadler UA PROTEIN Negative Normal NEGATIVE/ TRACE [facility] Comment on above: Performed By: #### H STROPN #### [facility] [address] [place] [address] Dr. Mirza Sadler UR MICRO IND NOT INDICATED Normal [facility] Comment on above: Performed By: #### H STROPN #### [facility] [address] [place] [address] Dr. Mirza Sadler Urobilinogen Qn (U) 0.2 {Luisito'U}/dL Normal 0.2 - 1. 0 [facility] Comment on above: Performed By: #### H STROPN #### [facility] [address] [place] [address] Dr. Mirza Sadler INFLUENZA A AND B AGon 10-[facility] Normal [facility] Comment on above: Result Comment: Nega tive for Flu A protein angiten. Infection due to Flu A cannot be ruled out. Flu A angiten in the sample may be below the detection limit of the test. Performed By: #### B PRICE CHANGER #### [facility] [address] [place] [address] Dr. Mirza Sadler INFLUBNEGH SEE BELOW Normal [facility] Comment on above: Result Comment: Nega tive for Flu B protein antigen. Infection due to Flu B cannot be ruled out. Flu B antigen in the sample may be below the detection limit of the test. Performed By: #### B PRICE CHANGER #### [facility] [address] [place] [address] Dr. Mirza Sadler INFLUENZA A AG Negative Normal NEGATIVE SEE COMMENT [facility] Comment on above: Performed By: #### B PRICE CHANGER #### [facility] [address] [place] [address] Dr. Mirza Sadler INFLUENZA B AG Negative Normal NEGATIVE SEE COMMENT [facility] Comment on above: Performed By: #### B PRICE CHANGER #### [facility] [address] [place] [address] Dr. Mirza Sadler INTERNAL CONTROLS Within Normal Limits Normal Wi thin Normal Limits [facility] Comment on above: Performed By: #### B PRICE CHANGER #### [facility] [address] [place] [address] Dr. Mirza Sadler LACTATE/LACTIC ACIDon 2021 Lactate [Moles/Vol] 1.8 mmol/L Normal 0.4-1.9 [facility] Comment on above: Performed By: #### C MP, CMADM #### [facility] [address] [place] [address] Dr. Mirza Sadler LIPASEon 10-27-2021 Lipase [Catalytic activity/Vol] 87.0 U/L Normal 73.0-393.0 [facility] Comment on above: Performed By: #### P T, PTT #### [facility] [address] [place] [address] Dr. Mirza Sadler PH VENOUS BLOODon 10-27-2021 PCO2 VENOUS 37.6 mmHg Critically low 40.0-52.0 [facility] Comment on above: Performed By: #### P T, PTT #### [facility] [address] [place] [address] Dr. Mirza Sadler pH VENOUS 7.422 Normal 7.330-7.43 0 [facility] Comment on above: Performed By: #### P T, PTT #### [facility] [address] [place] [address] Dr. Mirza Sadler PROF 14(COMP METB)on 022 Albumin [Mass/Vol] 4.2 g/dL Normal 3.4-5.0 [facility] Comment on above: Performed By: #### P T, PTT #### [facility] [address] [place] [address] Dr. Mirza Sadler Albumin/Globulin [Mass ratio] 1.3 {ratio} Normal [facility] Comment on above: Performed By: #### P T, PTT #### [facility] [address] [address] [address] Mirza Sadler ALP [Catalytic activity/Vol] 121 U/L Critically high 46-116 [facility] Comment on above: Performed By: #### P T, PTT #### [facility] [address] [address] [address] Mirza Sadler ALT [Catalytic activity/Vol] 22 U/L Normal 16-63 [facility] Comment on above: Performed By: #### P T, PTT #### [facility] [address] [address] [address] Mirza Sadler Anion gap [Moles/Vol] 16.0 mmol/L Normal Th e [facility] Comment on above: Performed By: #### P T, PTT #### [facility] [address] [address] [address] Mirza Sadler AST [Catalytic activity/Vol] 18 U/L Normal 15-37 [facility] Comment on above: Performed By: #### P T, PTT #### [facility] [address] [address] [address] Mirza Sadler Bilirubin [Mass/Vol] 1.3 mg/dL Critically high 0.2-1.0 [facility] Comment on above: Performed By: #### P T, PTT #### [facility] [address] [address] [address] Mirza Sadler Calcium [Mass/Vol] 8.9 mg/dL Normal 8.5-10.1 [facility] Comment on above: Performed By: #### P T, PTT #### [facility] [address] [address] [address] Mirza Sadler Chloride [Moles/Vol] 105 mmol/L Normal 98-107 [facility] Comment on above: Performed By: #### P T, PTT #### [facility] [address] [address] [address] Mirza Sadler CO2 [Moles/Vol] 23.7 mmol/L Normal 21.0-32.0 [facility] Comment on above: Performed By: #### P T, PTT #### [facility] [address] [address] [address] Mirza Sadler Creatinine [Mass/Vol] 1.79 mg/dL Critically high 0.70-1.30 [facility] Comment on above: Performed By: #### P T, PTT #### [facility] [address] [address] [address] Mirza Sadler EGFR-AF BAHRAINI 46 mL/min/1.73m2 Critically low >=60 [facility] Comment on above: Performed By: #### P T, PTT #### [facility] [address] [address] [address] Mirza Sadler EGFR-NON AF BAHRAINI 38 mL/min/1.73m2 Critically low >=60 [facility] Comment on above: Performed By: #### P T, PTT #### [facility] [address] [address] [address] Mirza Sadler Globulin (S) [Mass/Vol] 3.3 g/dL Normal [facility] Comment on above: Performed By: #### P T, PTT #### [facility] [address] [address] [address] Mirza Sadler Glucose [Mass/Vol] 195 mg/dL Critically high 74-106 [facility] Comment on above: Performed By: #### P T, PTT #### [facility] [address] [address] [address] Mirza Sadler Potassium [Moles/Vol] 3.7 mmol/L Normal 3.5-5.1 [facility] Comment on above: Performed By: #### P T, PTT #### [facility] [address] [address] [address] Mirza Sadler Protein [Mass/Vol] 7.5 g/dL Normal 6.4-8.2 [facility] Comment on above: Performed By: #### P T, PTT #### [facility] [address] [address] [address] Mirza Sadler Sodium [Moles/Vol] 141 mmol/L Normal 136-145 [facility] Comment on above: Performed By: #### P T, PTT #### [facility] [address] [address] [address] Mirza Sadler Urea nitrogen [Mass/Vol] 25.0 mg/dL Critically high 7.0-18.0 [facility] Comment on above: Performed By: #### P T, PTT #### [facility] [address] [place] [address] Dr. Mirza Sadler Urea nitrogen/Creatinine [Mass ratio] 14.0 mg/mg Normal [facility] Comment on above: Performed By: #### P T, PTT #### [facility] [address] [place] [address] Dr. Mirza Sadler PROTIMEon 10-27-2021 INR Coag (PPP) [Relative time] 1.07 {INR} Normal [facility] Comment on above: Performed By: #### P T, PTT #### [facility] [address] [place] [address] Dr. Mirza Sadler INR GUIDELINES SEE BELOW Normal [facility] Comment on above: Result Comment: RIVKA RED INR: 2.0 - 3.0 CONDITIONS NOT LISTED BELOW 2.5 - 3.5 FOR PROSTHETIC HEART VALVE REPLACEMENT 2.5 - 3.5 RECURRENT THROMBOSIS Performed By: #### P T, PTT #### [facility] [address] [place] [address] Dr. Mirza Sadler PT Coag (PPP) [Time] 11.5 s Normal 9.0-11.6 [facility] Comment on above: Performed By: #### P T, PTT #### [facility] [address] [place] [address] Dr. Mirza Sadler PTTon 10-27-2021 aPTT Coag (Bld) [Time] 25.1 s Normal 22.3-36.2 [facility] Comment on above: Performed By: #### P T, PTT #### [facility] [address] [place] [address] Dr. Mirza Sadler XR CHEST 1 Von [...] by: GAGAN CAREY Date: 2021-10-27 10:21 Normal [facility] 10-20-2021 [facility] Telephone ([place]) ----- LANI LIZAMA ([id number]) 1950 Date Time Provider Department 10/20/21 AMOSHARRY ABDON BRANDI During your visit today, we recorded [...] [D47.2] Order(s):CBC + DIFF [SQCBCDIF] Order #: [id number] FUTURE Prescriptions as of 10/24/2021 - famotidine [...] Status:Closed by VEE DAY on 10/24/21 Normal [facility] CT ABD/PELVIS WO CONon 10-03 [...] FLANAGAN Date: 2021-10-03 16:29 Normal [facility] PROF 14(COMP METB)on 022 Albumin [Mass/Vol] 4.1 g/dL Normal 3.4-5.0 [facility] Comment on above: Performed By: #### P T, PTT #### [facility] [address] [address] [address] Mirza Sadler Albumin/Globulin [Mass ratio] 1.2 {ratio} Normal [facility] Comment on above: Performed By: #### P T, PTT #### [facility] [address] [address] [address] Mirza Sadler ALP [Catalytic activity/Vol] 132 U/L Critically high 46-116 [facility] Comment on above: Performed By: #### P T, PTT #### [facility] [address] [address] [address] Mirza Sadler ALT [Catalytic activity/Vol] 30 U/L Normal 16-63 [facility] Comment on above: Performed By: #### P T, PTT #### [facility] [address] [address] [address] Mirza Sadler Anion gap [Moles/Vol] 10.7 mmol/L Normal [facility] Comment on above: Performed By: #### P T, PTT #### [facility] [address] [place] [address] Dr. Mirza Sadler AST [Catalytic activity/Vol] 21 U/L Normal 15-37 [facility] Comment on above: Performed By: #### P T, PTT #### [facility] [address] [address] [address] Mirza Sadler Bilirubin [Mass/Vol] 0.7 mg/dL Normal 0.2-1.0 [facility] Comment on above: Performed By: #### P T, PTT #### [facility] [address] [place] [address] Dr. Mirza Sadler Calcium [Mass/Vol] 9.0 mg/dL Normal 8.5-10.1 [facility] Comment on above: Performed By: #### P T, PTT #### [facility] [address] [place] [address] Dr. Mirza Sadler Chloride [Moles/Vol] 106 mmol/L Normal 98-107 [facility] Comment on above: Performed By: #### P T, PTT #### [facility] [address] [place] [address] Dr. Mirza Sadler CO2 [Moles/Vol] 27.5 mmol/L Normal 21.0-32.0 [facility] Comment on above: Performed By: #### P T, PTT #### [facility] [address] [place] [address] Dr. Mirza Sadler Creatinine [Mass/Vol] 1.77 mg/dL Critically high 0.70-1.30 [facility] Comment on above: Performed By: #### P T, PTT #### [facility] [address] [place] [address] Dr. Mirza Sadler EGFR-AF BAHRAINI 46 mL/min/1.73m2 Critically low >=60 [facility] Comment on above: Performed By: #### P T, PTT #### [facility] [address] [address] [address] Mirza Sadler EGFR-NON AF BAHRAINI 38 mL/min/1.73m2 Critically low >=60 [facility] Comment on above: Performed By: #### P T, PTT #### [facility] [address] [address] [address] Mirza Sadler Globulin (S) [Mass/Vol] 3.5 g/dL Normal [facility] Comment on above: Performed By: #### P T, PTT #### [facility] [address] [address] [address] Mirza Sadler Glucose [Mass/Vol] 135 mg/dL Critically high 74-106 [facility] Comment on above: Performed By: #### P T, PTT #### [facility] [address] [address] [address] Mirza Sadler Potassium [Moles/Vol] 4.2 mmol/L Normal 3.5-5.1 [facility] Comment on above: Performed By: #### P T, PTT #### [facility] [address] [address] [address] Mirza Sdaler Protein [Mass/Vol] 7.6 g/dL Normal 6.4-8.2 [facility] Comment on above: Performed By: #### P T, PTT #### [facility] [address] [address] [address] Mirza Sadler Sodium [Moles/Vol] 140 mmol/L Normal 136-145 [facility] Comment on above: Performed By: #### P T, PTT #### [facility] [address] [address] [address] Mirza Sadler Urea nitrogen [Mass/Vol] 17.0 mg/dL Normal 7.0-18.0 [facility] Comment on above: Performed By: #### P T, PTT #### [facility] [address] [address] [address] Mirza Sadler Urea nitrogen/Creatinine [Mass ratio] 9.6 mg/mg Normal [facility] Comment on above: Performed By: #### P T, PTT #### [facility] [address] [address] [address] Mirza Sadler US SINGLE QUAD RT [...] FLANAGAN Date: 2021-08-27 08:40 Normal [facility] A1C HEMOGLOBINon 07-17-2021 HbA1c (Bld) [Mass fraction] 6.9 % [employer] Other Glucose - FINGER STICKon Glucose [Mass/Vol] 180 mg/dL [employer] Other HbA1c (Bld) [Mass fraction]o n 07-17-2021 A1C HEMOGLOBIN [facility] [employer] Other A1C with Estimated Average G luon 04-10-2021 HbA1c (Bld) [Mass fraction] 6.4 % [employer] Other HbA1c (Bld) [Mass fraction] 243 % [employer] Other Glucoseon 04-10-2021 Glucose [Mass/Vol] 243 mg/dL [employer] Other A1C HEMOGLOBINon 01-03-2021 HbA1c (Bld) [Mass fraction] 6.6 % [employer] Other Glucose - FINGER STICKon Glucose [Mass/Vol] 142 mg/dL [employer] Other HbA1c (Bld) [Mass fraction]o n 01-03-2021 A1C HEMOGLOBIN [employer] [facility] [employer] Other Pranay 10-27-2020 CNPN Telephone (HEMASA) ----- LANI LIZAMA ([id number]) 1950 M Date Time Provider Department 10/27/20 [...] Status:Closed by ANGELINE WARE on 10/28/20 Normal [facility] Cardiovascular Lab Reporton 10-16-2018 Cardiovascular Lab Report [facility] Patient Name: Mega [facility] MR #: [id number] Physician: Pinky Bishop, Department of M.D. Medicine Service Date: 10/15/2018 Division of Birthdate: 1950 Cardiology Room #: 3CD [id number] Adult Cardiovascular Services [facility] [address] [place] [address] Cardiovascular Laboratory Report FINAL IMPRESSIONS: 1. Severe three-vessel modoc coronary artery disease. 2. Evhv-pz-cnui bypass grafts patent. 3. Mild in-stent restenosis [...] 4. Follow up with me in the [facility] in the next 4-6 weeks. 5. [...] guidance and using a micropuncture kit. A 6-Sammarinese Glidesheath was inserted without difficulty. Coronary angiography [...] of the vessel. There is evidence of rcci-ld-prxzc collaterals. The distal vessel is supplied via [...] is a long stented segment in the glaphepr-yh-wruyoj portion of the vessel with 30% in-stent restenosis. The vessel distal to the touchdown shows caliber reduction and no discrete stenosis. There is diffuse disease in the branches. Saphenous vein graft to the posterior descending artery. This is widely patent. It shows an extensive stented segment from acbnvmqs-mp-ovbkjneoey of the vessel. There is a 40%-50% [...] Bishop M.D. Date Trans: 10/16/2018 05:01 Brandie [id number] cc: Harley Crespo D.O. [address] [place] [phone] [facility] Center BASIC METABOLIC PANELon 07- Calcium [Mass/Vol] 8.9 mg/dL Normal 8.6-10.[address] [facility] Comment on above: Order Comment: No: D o not add to previous draw Performed By: #### 1 69, [id number] #### [facility] [address] [place] [address], [place] Chloride [Moles/Vol] 110 mmol/L High 98-[address] [facility] Comment on above: Order Comment: No: D o not add to previous draw Performed By: #### 1 69, [id number] #### [facility] [address] [place] [address], [place] CO2 [Moles/Vol] 26 mmol/L Normal 21-[address] [facility] Comment on above: Order Comment: No: D o not add to previous draw Performed By: #### 1 69, [id number] #### [facility] [address] [place] [address], [place] Creatinine [Mass/Vol] 1.52 mg/dL High 0.70-1.[address] [facility] Comment on above: Order Comment: No: D o not add to previous draw Performed By: #### 1 69, [id number] #### [facility] [address] [place] [address], [place] GFR/1.73 sq M predicted among blacks MDRD (S/P/Bld) [Vol rate/Area] 56 ml/min/1.73sq m Abnormal >[address] [facility] Comment on above: Order Comment: No: D o not add to previous draw Performed By: #### 1 69, [id number] #### [facility] [address] [place] [address], [place] GFR/1.73 sq M predicted among non-blacks MDRD (S/P/Bld) [Vol rate/Area] 46 ml/min/1.73sq m Abnormal >[address] [facility] Comment on above: Order Comment: No: D o not add to previous draw Performed By: #### 1 69, 61036 #### [facility] [address] [place] [address], [facility] Glucose [Mass/Vol] 89 mg/dL Normal 70-[address] [facility] Comment on above: Order Comment: No: D o not add to previous draw Performed By: #### 1 69, 22615 #### [facility] [address] [place] [address], [facility] Potassium [Moles/Vol] 3.9 mmol/L Normal 3.5-5.[address] [facility] Comment on above: Order Comment: No: D o not add to previous draw Performed By: #### 1 69, [id number] #### [facility] [address] [place] [id number], [facility] Sodium [Moles/Vol] 141 mmol/L Normal 136-[address] [facility] Comment on above: Order Comment: No: D o not add to previous draw Performed By: #### 1 69, 13473 #### [facility] [address] [facility] [place] [address], [facility] Urea nitrogen [Mass/Vol] 19 mg/dL Normal 7-[address] [facility] Comment on above: Order Comment: No: D o not add to previous draw Performed By: #### 1 69, 95411 #### [facility] [address] [facility] [place] [address], [facility] CBC W/DIFFon 10-15-2018 ABS BASOPHILS 0.1 10*3/uL Normal 0.0-0.[address] [facility] Comment on above: Order Comment: No: D o not add to previous draw Performed By: #### 5 0103 #### [facility] [address] [place] [address], [facility] ABS IMM GRANS 0.0 10*3/uL Normal 0.0-0.[address] [facility] Comment on above: Order Comment: No: D o not add to previous draw Performed By: #### 5 0103 #### [facility] [address] [place] [address], [facility] ABS NEUTROPHILS 3.5 10*3/uL Normal 1.6-7.[address] [facility] Comment on above: Order Comment: No: D o not add to previous draw Performed By: #### 5 0103 #### [facility] [address] [place] [address], [facility] Basophils/100 WBC (Bld) 0.8 % Normal 0.0-1.[address] [facility] Comment on above: Order Comment: No: D o not add to previous draw Performed By: #### 5 0103 #### [facility] [address] [place] [address], [facility] Eosinophils (Bld) [#/Vol] 0.3 10*3/uL Normal 0.0-0.[address] [facility] Comment on above: Order Comment: No: D o not add to previous draw Performed By: #### 5 0103 #### [facility] [address] [place] [id number], [facility] Eosinophils/100 WBC (Bld) 3.9 % Normal 0.0-6.[address] [facility] Comment on above: Order Comment: No: D o not add to previous draw Performed By: #### 5 0103 #### [facility] [address] [place] [address], [facility] Erythrocyte distribution width (RBC) [Ratio] 13.5 % Normal 11.5-15.[address] [facility] Comment on above: Order Comment: No: D o not add to previous draw Performed By: #### 5 0103 #### [facility] [address] [place] [address], [facility] Hematocrit (Bld) [Volume fraction] 39.7 % Normal 39.0-50.[address] [facility] Comment on above: Order Comment: No: D o not add to previous draw Performed By: #### 5 0103 #### [facility] [address] [facility] [place] [address], [facility] Hemoglobin (Bld) [Mass/Vol] 13.0 g/dL Normal 13.0-17.[address] [facility] Comment on above: Order Comment: No: D o not add to previous draw Performed By: #### 5 0103 #### [facility] [address] [facility] [place] [address], [facility] IMMATURE GRANS 0.3 % Normal 0.0-1.[address] [facility] Comment on above: Order Comment: No: D o not add to previous draw Performed By: #### 5 0103 #### [facility] [address] [place] [address], [facility] Lymphocytes (Bld) [#/Vol] 1.9 10*3/uL Normal 1.2-4.[address] [facility] Comment on above: Order Comment: No: D o not add to previous draw Performed By: #### 5 0103 #### [facility] [address] [place] [address], [facility] Lymphocytes/100 WBC (Bld) 30.1 % Normal 20.0-45.[address] [facility] Comment on above: Order Comment: No: D o not add to previous draw Performed By: #### 5 3 #### [facility] [address] [place] [address], [facility] MCH (RBC) [Entitic mass] 30.0 pg Normal 27.0-33.[address] [facility] Comment on above: Order Comment: No: D o not add to previous draw Performed By: #### 5 0103 #### [facility] [address] [place] [address], [facility] MCHC (RBC) [Mass/Vol] 32.7 g/dL Normal 32.0-35.[address] [facility] Comment on above: Order Comment: No: D o not add to previous draw Performed By: #### 5 0103 #### [facility] [address] [place] [address], [facility] MCV (RBC) [Entitic vol] 91.5 fL Normal 82.0-98.[address] [facility] Comment on above: Order Comment: No: D o not add to previous draw Performed By: #### 5 0103 #### [facility] [address] [place] [address], [facility] Monocytes (Bld) [#/Vol] 0.7 10*3/uL Normal 0.1-1.[address] [facility] Comment on above: Order Comment: No: D o not add to previous draw Performed By: #### 5 0103 #### [facility] [address] [place] [id number], [facility] MONOS 10.7 % Normal 5.0-12.[address] [facility] Comment on above: Order Comment: No: D o not add to previous draw Performed By: #### 5 0103 #### [facility] [address] [place] [address], [facility] Neutrophils/100 WBC (Bld) 54.2 % Normal 40.0-72.[address] [facility] Comment on above: Order Comment: No: D o not add to previous draw Performed By: #### 5 0103 #### [facility] [address] [facility] [place] [id number], [facility] Nucleated RBC/100 WBC (Bld) [Ratio] 0 % Normal 0-[address] [facility] Comment on above: Order Comment: No: D o not add to previous draw Performed By: #### 5 0103 #### [facility] [address] [place] [id number], [facility] PLAT CNT 164 10*3/uL Normal 150-[address] [facility] Comment on above: Order Comment: No: D o not add to previous draw Performed By: #### 5 0103 #### [facility] [address] RBC (Bld) [#/Vol] 4.34 10*6/uL Normal 4.20-5.[address] [facility] Comment on above: Order Comment: No: D o not add to previous draw Performed By: #### 5 0103 #### [facility] [address] [place] [address], [facility] WBC (Bld) [#/Vol] 6.38 10*3/uL Normal 4.00-10.[address] [facility] Comment on above: Order Comment: No: D o not add to previous draw Performed By: #### 5 0103 #### [facility] [address] MAGNESIUM BLOODon 10-15-2018 Magnesium [Mass/Vol] 2.0 mg/dL Normal 1.9-2.[address] [facility] Comment on above: Order Comment: No: D o not add to previous draw Performed By: #### 1 0070, 73091 #### [facility] [address] PROTHROMBIN TIMEon 9 INR Coag (PPP) [Relative time] 1.11 {INR} Normal 0.91-1.[address] [facility] Comment on above: Order Comment: No: [...] 1995;[id number]. Performed By: #### 5 6101 #### [facility] [address] [place] [address], [facility] PT Coag (PPP) [Time] 14.3 s Normal 12.3-14.[address] [facility] Comment on above: Order Comment: No: D o not add to previous draw Result Comment: ALL RESULTS MUST BE INTERPRETED WITH RESPECT TO BLOOD DRAWING ARTIFACT OR DILUTION ERROR OF ANTICOAGULANT AT THE TIME OF SAMPLING. Performed By: #### 5 6101 #### [facility] [address] POC GLUCOSE LABon 10-14-2018 Glucose [Mass/Vol] 180 mg/dL High 70-[address] [facility] Comment on above: Performed By: #### 8 5499 #### [facility] [address] Cardiovascular Lab Reporton 02-25-2018 Cardiovascular Lab Report [facility] Patient Name: Lani Lizama [facility] MR #: [id number] Physician: Pinky Bishop, Department of M.D. Medicine Service Date: 02/24/2018 Division of Birthdate: 1950 Cardiology Room #: [id number] Adult Cardiovascular Services [place] [address] Cardiovascular Laboratory Report FINAL IMPRESSIONS: 1. 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 2. Severe 3-vessel modoc coronary artery disease. 3. 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 4. Xhcsdpuu-qp-wmpeoa systemic hypertension. RECOMMENDATIONS: 1. Aspirin 81 mg lifelong. 2. 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 3. Aggressive cardiovascular risk factor modification. 4. Optimization of medical management; high intensity statin therapy as tolerated, we will switch his Toprol-XL to Coreg 25 mg p.o. b.i.d., and angiotensin-converting enzyme inhibitor. 5. Follow up with me in the [facility] in the next 2-3 weeks. 6. Follow up with Dr. Crespo as scheduled. PROCEDURES: Limited femoral angiography, bilateral selective coronary angiography, saphenous vein graft angiography, angiography of the left internal mammary artery graft, limited angiography of the left subclavian, percutaneous balloon angioplasty, and Synergy drug-eluting stent placement to the saphenous vein graft to the obtuse marginal, placement of a 6-Sammarinese MYNXGRIP closure device. METHODS: After risks, benefits, and alternatives were explained, written informed consent was obtained. The patient was prepped and draped in usual sterile fashion over both groins. Using 1% lidocaine solution, local infiltration anesthesia was achieved over the right groin. Using a micropuncture kit, access of the right common femoral artery was obtained. A 6-Sammarinese 11 cm sheath was exchanged then without [...] to proceed with an interventional procedure. A 6-Sammarinese JR4 guide catheter was advanced in and [...] the procedure. All catheters were removed. A 6-Sammarinese MYNXGRIP closure device was deployed per protocol [...] is a 30% touchdown stenosis of the modoc vessel. There is evidence of yjzj-eq-bloyd collaterals supplying the distal right coronary artery. Limited femoral angiography, this shows mild plaque and anatomy suitable for closure device. INDICATIONS: Unstable angina. Electronically Signed by: Pinky Bishop M.D. 03/06/2018 12:15 P Pinky Bishop M.D. Date Dict: 02/24/2018/01:39 P/Pinky Bishop M.D. Date Trans: 02/25/2018 02:12 A/gatito [id number] cc: Harley Crespo D.O. [address] [place] [phone] [place] [facility] POC GLUCOSE LABon 02-25-2018 Glucose [Mass/Vol] 150 mg/dL High 70-[address] [facility] Comment on above: Performed By: #### 8 [id number] #### [facility] [address] [facility]. [address] POC GLUCOSE LABon 02-24-2018 Glucose [Mass/Vol] 192 mg/dL High 70-[address] [facility] Comment on above: Performed By: #### 8 [id number] #### [facility] [address] [facility] [place] [address], [facility] Glucose [Mass/Vol] 186 mg/dL High 70-[address] [facility] Comment on above: Performed By: #### 8 5499 #### [facility] [address] [facility] [place] [address], [facility] Vital Signs Date Time Vital Sign Value Performing Clinician Facility 08-03-2024 09: Body height 170.18 cm [employer] Work Phone: [facility] 08-03-2024 09: Body mass index (BMI) [Ratio] 31.8 kg/m2 [employer] Work Phone: [facility] 08-03-2024 09: Body weight 92.4 kg [employer] Work Phone: [facility] 08-03-2024 09:28-0400 Diastolic blood pressure 83 mm[Hg] Harley Ball DO Work Phone: [facility] 08-03-2024 09:28-0400 Heart rate 77 /min Harley Ball DO Work Phone: [facility] 08-03-2024 09:28-0400 Respiratory rate 18 /min Harley Ball DO Work Phone: [facility] 08-03-2024 09:28-0400 SaO2% (BldA) [Mass fraction] 99 % Harley Ball DO Work Phone: [facility] 08-03-2024 09:28-0400 Systolic blood pressure 143 mm[Hg] Harley Ball DO Work Phone: [facility] 07-27-2024 11:29-0400 Diastolic blood pressure 80 mm[Hg] Harley Ball DO Work Phone: [facility] 07-27-2024 11:29-0400 Heart rate 74 /min Harley Ball DO Work Phone: [facility] 07-27-2024 11:29-0400 Systolic blood pressure 143 mm[Hg] Harley Ball DO Work Phone: [facility] 07-27-2024 11:23-0400 Body height 170.18 cm Harley Ball DO Work Phone: [facility] 07-27-2024 11:23-0400 Body mass index (BMI) [Ratio] 28.8 kg/m2 Harley Ball DO Work Phone: [facility] 07-27-2024 11:23-0400 Body weight 83.57 kg Harley Ball DO Work Phone: [facility] 07-27-2024 11:23-0400 Respiratory rate 12 /min Harley Ball DO Work Phone: [facility] 07-27-2024 11:23-0400 SaO2% (BldA) [Mass fraction] 100 % Harley Ball DO Work Phone: [facility] 07-14-2024 09:43-0400 Body height 170.18 cm Harley Ball DO Work Phone: [facility] 07-14-2024 09:43-0400 Body mass index (BMI) [Ratio] 28.1 kg/m2 Harley Ball DO Work Phone: [facility] 07-14-2024 09:43-0400 Body weight 81.64 kg Harley Ball DO Work Phone: [facility] 07-14-2024 09:43-0400 Diastolic blood pressure 83 mm[Hg] Harley Ball DO Work Phone: [facility] 07-14-2024 09:43-0400 Heart rate 74 /min Harley Ball DO Work Phone: [facility] 07-14-2024 09:43-0400 Respiratory rate 16 /min Harley Ball DO Work Phone: [facility] 07-14-2024 09:43-0400 SaO2% (BldA) [Mass fraction] 99 % Harley Ball DO Work Phone: [facility] 07-14-2024 09:43-0400 Systolic blood pressure 141 mm[Hg] Harley Ball DO Work Phone: [facility] 04-30-2024 09:42-0500 Body height 170.18 cm [facility] 04-30-2024 09:42-0500 Body mass index (BMI) [Ratio] 27.9 kg/m2 [facility] 04-30-2024 09:42-0500 Body weight 80.96 kg [facility] 04-30-2024 09:42-0500 Diastolic blood pressure 80 mm[Hg] [facility] 04-30-2024 09:42-0500 Heart rate 81 /min [facility] 04-30-2024 09:42-0500 Respiratory rate 18 /min [facility] 04-30-2024 09:42-0500 SaO2% (BldA) [Mass fraction] 98 % [facility] 04-30-2024 09:42-0500 Systolic blood pressure 134 mm[Hg] [facility] 04-16-2024 08:24-0500 Body height 170.18 cm [facility] 04-16-2024 08:24-0500 Body mass index (BMI) [Ratio] 28.2 kg/m2 [facility] 04-16-2024 08:24-0500 Body weight 81.76 kg [facility] 04-16-2024 08:24-0500 Diastolic blood pressure 80 mm[Hg] [facility] 04-16-2024 08:24-0500 Heart rate 84 /min [facility] 04-16-2024 08:24-0500 Respiratory rate 12 /min [facility] 04-16-2024 08:24-0500 SaO2% (BldA) [Mass fraction] 97 % [facility] 04-16-2024 08:24-0500 Systolic blood pressure 137 mm[Hg] [facility] 04-02-2024 11:44-0500 Body height 170.2 cm Kenneth Tavera DPM Work Phone: [facility] 04-02-2024 11:44-0500 Body mass index (BMI) [Ratio] 26.78 kg/m2 Kenneth Tavera DPM Work Phone: [facility] 04-02-2024 11:44-0500 Body weight 77.56 kg Kenneth Tavera DPM Work Phone: [facility] 04-02-2024 11:44-0500 Respiratory rate 18 /min Kenneth Tavera DPM Work Phone: [facility] 02-24-2024 09:46-0500 Body height 170.18 cm [facility] 02-24-2024 09:46-0500 Body mass index (BMI) [Ratio] 27.1 kg/m2 [facility] 02-24-2024 09:46-0500 Body weight 78.47 kg [facility] 02-24-2024 09:46-0500 Diastolic blood pressure 68 mm[Hg] [facility] 02-24-2024 09:46-0500 Heart rate 80 /min [facility] 02-24-2024 09:46-0500 SaO2% (BldA) [Mass fraction] 97 % [facility] 02-24-2024 09:46-0500 Systolic blood pressure 110 mm[Hg] [facility] 01-23-2024 11:29-0400 Body height 170.2 cm Kenneth Tavera DPM Work Phone: [facility] 01-23-2024 11:29-0400 Body mass index (BMI) [Ratio] 26.78 kg/m2 Kenneth Tavera DPM Work Phone: [facility] 01-23-2024 11:29-0400 Body weight 77.56 kg Kenneth Tavera DPM Work Phone: [facility] 01-23-2024 11:29-0400 Diastolic blood pressure 82 mm[Hg] Kenneth Tavera DPM Work Phone: [facility] 01-23-2024 11:29-0400 Heart rate 88 /min Kenneth Liang DPM Work Phone: [facility] 01-23-2024 11:29-0400 Systolic blood pressure 128 mm[Hg] Kenneth Tavera DPM Work Phone: [facility] 01-23-2024 09:05-0400 Body height 170.18 cm [facility] 01-23-2024 09:05-0400 Body mass index (BMI) [Ratio] 27.3 kg/m2 [facility] 01-23-2024 09:05-0400 Body weight 79.37 kg [facility] 01-23-2024 09:05-0400 Diastolic blood pressure 71 mm[Hg] [facility] 01-23-2024 09:05-0400 Heart rate 78 /min [facility] 01-23-2024 09:05-0400 Respiratory rate 18 /min [facility] 01-23-2024 09:05-0400 SaO2% (BldA) [Mass fraction] 98 % [facility] 01-23-2024 09:05-0400 Systolic blood pressure 106 mm[Hg] [facility] 01-07-2024 08:26-0400 Body height 170.18 cm [facility] 01-07-2024 08:26-0400 Body mass index (BMI) [Ratio] 27.2 kg/m2 [facility] 01-07-2024 08:26-0400 Body temperature 96.7 [degF] [facility] 01-07-2024 08:26-0400 Body weight 78.98 kg [facility] 01-07-2024 08:26-0400 Diastolic blood pressure 77 mm[Hg] [facility] 01-07-2024 08:26-0400 Heart rate 91 /min [facility] 01-07-2024 08:26-0400 Respiratory rate 16 /min [facility] 01-07-2024 08:26-0400 SaO2% (BldA) [Mass fraction] 97 % [facility] 01-07-2024 08:26-0400 Systolic blood pressure 123 mm[Hg] [facility] 12-12-2023 08:25-0400 Body height 170.18 cm [facility] 12-12-2023 08:25-0400 Body mass index (BMI) [Ratio] 27.4 kg/m2 [facility] 12-12-2023 08:25-0400 Body weight 79.49 kg [facility] 12-12-2023 08:25-0400 Diastolic blood pressure 79 mm[Hg] [facility] 12-12-2023 08:25-0400 Heart rate 80 /min [facility] 12-12-2023 08:25-0400 Respiratory rate 12 /min [facility] 12-12-2023 08:25-0400 Systolic blood pressure 127 mm[Hg] [facility] 10-17-2023 09:21-0400 Body height 170.18 cm [facility] 10-17-2023 09:21-0400 Body mass index (BMI) [Ratio] 28.2 kg/m2 [facility] 10-17-2023 09:21-0400 Body weight 81.81 kg [facility] 10-17-2023 09:21-0400 Diastolic blood pressure 79 mm[Hg] [facility] 10-17-2023 09:21-0400 Heart rate 70 /min [facility] 10-17-2023 09:21-0400 Respiratory rate 18 /min [facility] 10-17-2023 09:21-0400 SaO2% (BldA) [Mass fraction] 97 % [facility] 10-17-2023 09:21-0400 Systolic blood pressure 133 mm[Hg] [facility] 08-12-2023 08:37-0400 Body height 170.18 cm [facility] 08-12-2023 08:37-0400 Body mass index (BMI) [Ratio] 27.6 kg/m2 [facility] 08-12-2023 08:37-0400 Body weight 79.88 kg [facility] 08-12-2023 08:37-0400 Diastolic blood pressure 84 mm[Hg] [facility] 08-12-2023 08:37-0400 Heart rate 82 /min [facility] 08-12-2023 08:37-0400 Respiratory rate 12 /min [facility] 08-12-2023 08:37-0400 Systolic blood pressure 134 mm[Hg] [facility] 07-02-2023 08:54-0400 Body height 170.18 cm [facility] 07-02-2023 08:54-0400 Body mass index (BMI) [Ratio] 27.3 kg/m2 [facility] 07-02-2023 08:54-0400 Body temperature 96.5 [degF] [facility] 07-02-2023 08:54-0400 Body weight 79.09 kg [facility] 07-02-2023 08:54-0400 Diastolic blood pressure 79 mm[Hg] [facility] 07-02-2023 08:54-0400 Heart rate 87 /min [facility] 07-02-2023 08:54-0400 Respiratory rate 18 /min [facility] 07-02-2023 08:54-0400 SaO2% (BldA) [Mass fraction] 96 % [facility] 07-02-2023 08:54-0400 Systolic blood pressure 120 mm[Hg] [facility] 06-18-2023 10:51-0400 Body height 170.18 cm [facility] 06-18-2023 10:51-0400 Body mass index (BMI) [Ratio] 26.6 kg/m2 [facility] 06-18-2023 10:51-0400 Body weight 77.11 kg [facility] 06-18-2023 10:51-0400 Diastolic blood pressure 84 mm[Hg] [facility] 06-18-2023 10:51-0400 Heart rate 95 /min [facility] 06-18-2023 10:51-0400 Respiratory rate 18 /min [facility] 06-18-2023 10:51-0400 SaO2% (BldA) [Mass fraction] 97 % [facility] 06-18-2023 10:51-0400 Systolic blood pressure 127 mm[Hg] [facility] 05-03-2023 09:30-0500 Body height 170.18 cm DO Harley Ball Work Phone: [facility] 05-03-2023 09:30-0500 Body weight 77.29 kg DO Harley Ball Work Phone: [facility] 05-03-2023 09:30-0500 Diastolic blood pressure 85 mm[Hg] DO Harley Ball Work Phone: [facility] 05-03-2023 09:30-0500 Systolic blood pressure 126 mm[Hg] DO Harley Ball Work Phone: [facility] 03-12-2023 11:15-0500 Body height 170.18 cm Tondra Mapus Other [facility] 03-12-2023 11:15-0500 Body mass index (BMI) [Ratio] 27.03 kg/m2 Tondra Mapus Other [employer] Other 03-12-2023 11:15-0500 Body weight 78.29 kg Tondra Mapus Other [facility] 03-12-2023 11:15-0500 Diastolic blood pressure 79 mm[Hg] Tondra Mapus Other [facility] 03-12-2023 11:15-0500 Respiratory rate 18 /min Tondra Mapus Other [employer] Other 03-12-2023 11:15-0500 SaO2% (BldA) [Mass fraction] 98 % Tondra Mapus Other [employer] Other 03-12-2023 11:15-0500 Systolic blood pressure 128 mm[Hg] Tondra Mapus Other [facility] 01-07-2023 10:00-0400 Body height 170.18 cm Kingsley Latisha Other [employer] Other 01-07-2023 10:00-0400 Body mass index (BMI) [Ratio] 27 kg/m2 Kingsley Latisha Other [employer] Other 01-07-2023 10:00-0400 Body temperature 97.7 [degF] Kingsley Latisha Other [employer] Other 01-07-2023 10:00-0400 Body weight 78.2 kg Kingsley Latisha Other [employer] Other 01-07-2023 10:00-0400 Diastolic blood pressure 73 mm[Hg] Kingsley Latisha Other [employer] Other 01-07-2023 10:00-0400 Respiratory rate 16 /min Kingsley Latisha Other [employer] Other 01-07-2023 10:00-0400 SaO2% (BldA) [Mass fraction] 98 % Kingsley Latisha Other [employer] Other 01-07-2023 10:00-0400 Systolic blood pressure 108 mm[Hg] Kingsley Latisha Other [employer] Other 12-31-2022 09:30-0400 Body height 170.18 cm Harley Ball Other [employer] Other 12-31-2022 09:30-0400 Body mass index (BMI) [Ratio] 27.03 kg/m2 Harley Ball Other [employer] Other 12-31-2022 09:30-0400 Body weight 78.29 kg Harley Ball Other [employer] Other 12-31-2022 09:30-0400 Diastolic blood pressure 69 mm[Hg] Harley Ball Other [employer] Other 12-31-2022 09:30-0400 Respiratory rate 16 /min Harley Ball Other [employer] Other 12-31-2022 09:30-0400 Systolic blood pressure 102 mm[Hg] Harley Ball Other [employer] Other 08-31-2022 08:45-0400 Body height 170.18 cm Harley Ball Other [employer] Other 08-31-2022 08:45-0400 Body mass index (BMI) [Ratio] 26.72 kg/m2 Harley Ball Other [employer] Other 08-31-2022 08:45-0400 Body weight 77.38 kg Harley Ball Other [employer] Other 08-31-2022 08:45-0400 Diastolic blood pressure 69 mm[Hg] Harley Ball Other [employer] Other 08-31-2022 08:45-0400 Respiratory rate 12 /min Harley Ball Other [employer] Other 08-31-2022 08:45-0400 Systolic blood pressure 102 mm[Hg] Harley Ball Other [employer] Other 07-02-2022 10:40-0400 Body height 170.18 cm Kingsley Latisha Other [employer] Other 07-02-2022 10:40-0400 Body mass index (BMI) [Ratio] 27.69 kg/m2 Kingsley Latisha Other [employer] Other 07-02-2022 10:40-0400 Body temperature 96.4 [degF] Kingsley Latisha Other [employer] Other 07-02-2022 10:40-0400 Body weight 80.2 kg Kingsley Latisha Other [employer] Other 07-02-2022 10:40-0400 Diastolic blood pressure 71 mm[Hg] Kingsley Latisha Other [employer] Other 07-02-2022 10:40-0400 Respiratory rate 16 /min Kingsley Latisha Other [employer] Other 07-02-2022 10:40-0400 SaO2% (BldA) [Mass fraction] 97 % Kingsley Latisha Other [employer] Other 07-02-2022 10:40-0400 Systolic blood pressure 115 mm[Hg] Kingsley Latisha Other [employer] Other 06-28-2022 09:30-0400 Body height 170.18 cm Harley Ball Other [employer] Other 06-28-2022 09:30-0400 Body mass index (BMI) [Ratio] 27.16 kg/m2 Harley Ball Other [employer] Other 06-28-2022 09:30-0400 Body weight 78.65 kg Harley Ball Other [employer] Other 06-28-2022 09:30-0400 Diastolic blood pressure 66 mm[Hg] Harley Ball Other [employer] Other 06-28-2022 09:30-0400 Respiratory rate 12 /min Harley Ball Other [employer] Other 06-28-2022 09:30-0400 Systolic blood pressure 115 mm[Hg] Harley Ball Other [employer] Other 06-26-2022 08:45-0400 Body height 170.18 cm Tondra Mapus Other [employer] Other 06-26-2022 08:45-0400 Body mass index (BMI) [Ratio] 27.75 kg/m2 Tondra Mapus Other [employer] Other 06-26-2022 08:45-0400 Body weight 80.38 kg Tondra Mapus Other [employer] Other 06-26-2022 08:45-0400 Diastolic blood pressure 61 mm[Hg] Tondra Mapus Other [employer] Other 06-26-2022 08:45-0400 Respiratory rate 16 /min Tondra Mapus Other [employer] Other 06-26-2022 08:45-0400 SaO2% (BldA) [Mass fraction] 96 % Tondra Mapus Other [employer] Other 06-26-2022 08:45-0400 Systolic blood pressure 105 mm[Hg] Tondra Mapus Other [employer] Other 03-20-2022 09:15-0500 Body height 170.18 cm Tondra Mapus Other [employer] Other 03-20-2022 09:15-0500 Body mass index (BMI) [Ratio] 26.15 kg/m2 Tondra Mapus Other [employer] Other 03-20-2022 09:15-0500 Body weight 75.75 kg Tondra Mapus Other [employer] Other 03-20-2022 09:15-0500 Diastolic blood pressure 57 mm[Hg] Tondra Mapus Other [employer] Other 03-20-2022 09:15-0500 Respiratory rate 16 /min Tondra Mapus Other [employer] [facility] [employer] Other 03-20-2022 09:15-0500 SaO2% (BldA) [Mass fraction] 98 % Tondra Desireeus Other [employer] Other 03-20-2022 09:15-0500 Systolic blood pressure 117 mm[Hg] Tondra Desireeus Other [facility] [employer] Other 01-17-2022 11:45-0400 Body height 170.18 cm DO Harley Ball Work Phone: [facility] 01-17-2022 11:22-0400 Diastolic blood pressure 68 mm[Hg] DO Harley Ball Work Phone: [facility] 01-17-2022 11:22-0400 Heart rate 60 /min DO Harley Ball Work Phone: [facility] 01-17-2022 11:22-0400 Systolic blood pressure 118 mm[Hg] DO Harley Ball Work Phone: [facility] 01-17-2022 11:05-0400 Body temperature 97.4 [degF] DO Harley Ball Work Phone: [facility] 01-17-2022 11:05-0400 Respiratory rate 18 /min DO Harley Ball Work Phone: [facility] 01-17-2022 11:05-0400 SaO2% (BldA) [Mass fraction] 95 % DO Harley Ball Work Phone: [facility] 01-17-2022 06:58-0400 Body weight 77.9 kg DO Harley Ball Work Phone: [facility] 01-15-2022 15:23-0400 Inhaled oxygen flow rate 2 L/min DO Harley Ball Work Phone: [facility] 12-18-2021 09:45-0400 Body height 170.18 cm Tondra Mapus Other [employer] Other 12-18-2021 09:45-0400 Body mass index (BMI) [Ratio] 27.25 kg/m2 Tondra Mapus Other [employer] Other 12-18-2021 09:45-0400 Body weight 78.93 kg Tondra Mapus Other [employer] Other 12-18-2021 09:45-0400 Diastolic blood pressure 65 mm[Hg] Tondra Mapus Other [employer] Other 12-18-2021 09:45-0400 Respiratory rate 16 /min Tondra Mapus Other [employer] Other 12-18-2021 09:45-0400 SaO2% (BldA) [Mass fraction] 97 % Tondra Mapus Other [employer] Other 12-18-2021 09:45-0400 Systolic blood pressure 133 mm[Hg] Tondra Mapus Other [employer] Other 09-29-2021 13:13-0400 Blood Pressure Location Gagan MORGANL [facility] [place] 09-29-2021 13:13-0400 Diastolic blood pressure 74 mm[Hg] Gagan NILL [facility] [place] 09-29-2021 13:13-0400 Heart rate 60 /min Gagan NILL [facility] [place] 09-29-2021 13:13-0400 Respiratory rate 16 /min Gagan MORGANL [facility] [place] 09-29-2021 13:13-0400 Systolic blood pressure 138 mm[Hg] Gagan NILL [facility] [place] 07-17-2021 09:45-0400 Body height 170.18 cm Tondra Mapus Other [employer] Other 07-17-2021 09:45-0400 Body mass index (BMI) [Ratio] 30.69 kg/m2 Tondra Mapus Other [employer] Other 07-17-2021 09:45-0400 Body weight 88.91 kg Tondra Mapus Other [employer] Other 07-17-2021 09:45-0400 Diastolic blood pressure 73 mm[Hg] Tondra Mapus Other [employer] Other 07-17-2021 09:45-0400 Respiratory rate 16 /min Tondra Mapus Other [employer] Other 07-17-2021 09:45-0400 SaO2% (BldA) [Mass fraction] 97 % Tondra Mapus Other [employer] Other 07-17-2021 09:45-0400 Systolic blood pressure 163 mm[Hg] Tondra Mapus Other [employer] Other 06-06-2021 10:20-0500 Body height 170.18 cm Kingsley Latisha Other [employer] Other 06-06-2021 10:20-0500 Body mass index (BMI) [Ratio] 30.29 kg/m2 Kingsley Latisha Other [employer] Other 06-06-2021 10:20-0500 Body temperature 96.1 [degF] Kingsley Latisha Other [employer] Other 06-06-2021 10:20-0500 Body weight 87.73 kg Kingsley Latisha Other [employer] Other 06-06-2021 10:20-0500 Diastolic blood pressure 70 mm[Hg] Kingsley Latisha Other [employer] Other 06-06-2021 10:20-0500 Respiratory rate 18 /min Kingsley Latisha Other [employer] Other 06-06-2021 10:20-0500 SaO2% (BldA) [Mass fraction] 97 % Kingsley Latisha Other [employer] Other 06-06-2021 10:20-0500 Systolic blood pressure 160 mm[Hg] Kingsley Latisha Other [employer] Other 04-10-2021 09:15-0500 Body height 170.18 cm Tondra Mapus Other [employer] Other 04-10-2021 09:15-0500 Body mass index (BMI) [Ratio] 30.99 kg/m2 Tondra Mapus Other [employer] Other 04-10-2021 09:15-0500 Body weight 89.77 kg Tondra Mapus Other [employer] Other 04-10-2021 09:15-0500 Diastolic blood pressure 64 mm[Hg] Tondra Mapus Other [employer] Other 04-10-2021 09:15-0500 Respiratory rate 18 /min Tondra Mapus Other [employer] Other 04-10-2021 09:15-0500 SaO2% (BldA) [Mass fraction] 98 % Tondra Mapus Other [employer] Other 04-10-2021 09:15-0500 Systolic blood pressure 136 mm[Hg] Tondra Mapus Other [employer] Other 02-14-2021 10:00-0500 Body height 170.18 cm Kingsley Latisha Other [employer] Other 02-14-2021 10:00-0500 Body mass index (BMI) [Ratio] 30.98 kg/m2 Kingsley Latisha Other [employer] Other 02-14-2021 10:00-0500 Body temperature 96 [degF] Kingsley Latisha Other [employer] Other 02-14-2021 10:00-0500 Body weight 89.72 kg Kingsley Latisha Other [employer] Other 02-14-2021 10:00-0500 Diastolic blood pressure 60 mm[Hg] Kingsley Latisha Other [employer] Other 02-14-2021 10:00-0500 Respiratory rate 16 /min Kingsley Latisha Other [employer] Other 02-14-2021 10:00-0500 SaO2% (BldA) [Mass fraction] 97 % Kingsley Latisha Other [employer] Other 02-14-2021 10:00-0500 Systolic blood pressure 130 mm[Hg] Kingsley Latisha Other [employer] Other 01-03-2021 10:15-0400 Body height 170.18 cm Tondra Mapus Other [employer] Other 01-03-2021 10:15-0400 Body mass index (BMI) [Ratio] 31.01 kg/m2 Tondra Mapus Other [employer] Other 01-03-2021 10:15-0400 Body weight 89.81 kg Tondra Mapus Other [employer] Other 01-03-2021 10:15-0400 Diastolic blood pressure 67 mm[Hg] Tondra Mapus Other [employer] Other 01-03-2021 10:15-0400 Respiratory rate 16 /min Tondra Mapus Other [employer] Other 01-03-2021 10:15-0400 SaO2% (BldA) [Mass fraction] 99 % Tondra Mapus Other [employer] Other 01-03-2021 10:15-0400 Systolic blood pressure 151 mm[Hg] Tondra Mapus Other [employer] Other Encounters Encounter Date Encounter Type Care Provider Facility Start: 08-20-2024 End: 08-20-2024 ambulatory EHAB VIJAY [facility] Start: 08-14-2024 [facility] Start: 08-13-2024 Evaluation [facility] Start: 08-13-2024 End: 08-14-2024 Evaluation and management of inpatient SP SANCHEZ [facility] Start: 08-04-2024 End: 08-04-2024 ambulatory OBI JOSE ENakul [facility] Start: 08-04-2024 End: 08-04-2024 ambulatory Jason LARKIN Facility:[facility] Start: 08-04-2024 End: 08-04-2024 Patient encounter procedure Jason LARKIN [facility] Start: 08-03-2024 End: 08-03-2024 ambulatory Jason LARKIN Facility:[facility] Start: 08-03-2024 End: 08-03-2024 Lab Drop off Jason LARKIN [facility] Start: 08-03-2024 End: 08-03-2024 ambulatory HARLEY BALL Facility:[facility] [place] Start: 08-03-2024 End: 08-03-2024 ambulatory Harley Ball DO Work Phone: [facility] Work Phone: Start: 08-03-2024 End: 08-03-2024 Patient encounter procedure Harley Ball DO Work Phone: [facility] Work Phone: Start: 07-27-2024 End: 07-27-2024 ambulatory Harley Ball DO Work Phone: [facility] Work Phone: Start: 07-27-2024 End: 07-27-2024 Patient encounter procedure Harley Ball DO Work Phone: [facility] Work Phone: Start: 07-17-2024 ambulatory [facility] Start: 07-17-2024 Encounter for preprocedural cardiovascular examination [facility] Start: 07-16-2024 Non-patient / Non-visit Benjam in Ball DO Work Phone: [facility] Work Phone: Start: 07-15-2024 ambulatory Jason LARKIN Facility :[facility] Start: 07-15-2024 Non-patient / Non-visit Benjam in Ball DO Work Phone: [facility] [employer] Work Phone: Start: 07-14-2024 End: 07-14-2024 ambulatory Harley Ball DO Work Phone: [facility] Work Phone: Start: 07-14-2024 End: 07-14-2024 Patient encounter procedure Harley Ball DO Work Phone: [facility] Work Phone: Start: 07-07-2024 End: 07-07-2024 ambulatory Kingsley Latisha Facility:[facility] Start: 07-07-2024 Non-patient / Non-visit Benjam in Ball DO Work Phone: [facility] Work Phone: Start: 06-22-2024 ambulatory KEVIN ARTEAGA [facility] Start: 06-18-2024 End: 06-18-2024 ambulatory KENNETH TAVERA Not Available Start: 06-10-2024 Non-patient / Non-visit Benjam in Ball DO Work Phone: [facility] Work Phone: Start: 05-28-2024 End: 05-28-2024 Departed Referred Harley Ball DO Work Phone: [facility] [id number] Work Phone: Start: 05-28-2024 End: 05-28-2024 Patient encounter procedure Harley Crespo DO Work Phone: [facility] [id number] Work Phone: Start: 05-28-2024 End: 05-28-2024 ambulatory Harley Crespo DO Work Phone: [facility] Work Phone: Start: 05-26-2024 End: 05-26-2024 ambulatory [facility] Start: 05-18-2024 ambulatory [facility] Start: 05-05-2024 Non-patient / Non-visit Robb Crespo DO Work Phone: [facility] [employer] Work Phone: Start: 04-30-2024 End: 04-30-[address] [facility] Work Phone: Start: 04-30-2024 End: 04-30-2024 Patient encounter procedure [facility] Work Phone: Start: 04-21-2024 ambulatory [facility] Start: 04-16-2024 End: 04-16-2024 Patient encounter procedure [facility] Work Phone: Start: 04-02-2024 End: 04-02-2024 [...] polyneuropathy, without long-term current use of insulin ([facility]) (Primary Dx); Pain due to onychomycosis of toenails of both feet Start: 04-02-2024 End: 04-02-2024 ambulatory KENNETH TAVERA Not Available Start: 03-26-2024 ambulatory [facility] Start: 03-10-2024 End: 03-10-2024 ambulatory [facility] Start: 03-06-2024 ambulatory [facility] Start: 02-24-2024 End: 02-24-2024 Patient encounter procedure [facility] Work Phone: Start: 02-20-2024 ambulatory [facility] Start: 02-18-2024 Non-patient / Non-visit [facility] Work Phone: Start: 02-18-2024 Non-patient / Non-visit [facility] Work Phone: Start: 02-13-2024 [facility]: 02-13-[facility]24 Evaluation and management of inpatient [facility]ON[facility] Start: 02-13-2024 Evaluation and management of inpatient [facility] Start: 02-13-2024 End: 02-14-2024 Evaluation and management of inpatient ARAMIS SELLERS [facility] Start: 02-12-2024 Non-patient / Non-visit [facility] Work Phone: Start: 02-12-2024 Non-patient / Non-visit [facility] Work Phone: Start: 01-23-2024 End: [...] polyneuropathy, without long-term current use of insulin ([facility]); Pain due to onychomycosis of toenails of both feet Start: 01-23-2024 End: 01-23-2024 ambulatory KENNETH TAVERA Not Available Start: 01-23-2024 End: 01-23-[address] [facility] Work Phone: Start: 01-23-2024 End: 01-23-2024 Patient encounter procedure [facility] Work Phone: Start: 01-21-2024 ambulatory [facility] Start: 01-16-2024 ambulatory [facility] Start: 01-10-2024 ambulatory [facility] Start: 01-09-2024 ambulatory [facility] Start: 01-07-2024 End: 01-07-[address] [facility] Work Phone: Start: 01-07-2024 End: 01-07-2024 Patient encounter procedure [facility] Physician [facility] [place] Work Phone: Start: 12-30-2023 Non-patient / Non-visit [facility] Physician [facility] Work Phone: Start: 12-12-2023 End: 12-12-[address] [facility] Work Phone: Start: 12-12-2023 End: 12-12-2023 Patient encounter procedure [facility] Physician [facility] Work Phone: Start: 11-28-2023 ambulatory [facility] Start: 11-12-2023 End: 11-12-2023 ambulatory [facility] Start: 11-07-2023 End: 11-07-2023 ambulatory KENNETH A LIANG Not Available Start: 10-17-2023 End: 10-17-[address] [facility] Work Phone: Start: 10-17-2023 End: 10-17-2023 Patient encounter procedure [facility] Phys[facility] Work Phone: Start: 10-07-2023 End: 10-07-2023 ambulatory [facility] Start: 10-02-2023 ambulatory [facility] Start: 09-27-2023 Evaluation and management of inpatient [facility] Start: 09-27-2023 Evaluation and management of inpatient [facility] Start: 09-26-2023 Non-patient / Non-visit [facility] Work Phone: Start: 09-26-2023 Evaluation and management of inpatient [facility] Start: 09-26-2023 End: 09-28-2023 Evaluation and management of inpatient [facility] Start: 09-26-2023 Non-patient / Non-visit [facility] Physician [facility] Work Phone: Start: 09-25-2023 ambulatory EMEKA NICHOLAS [facility] Start: 09-24-2023 ambulatory [facility] Start: 09-19-2023 ambulatory [facility] Start: 09-09-2023 End: 09-09-2023 ambulatory [facility] Start: 08-27-2023 Non-patient / Non-visit [facility] Physician [facility] Work Phone: Start: 08-12-2023 End: 08-12-[address] [facility] Work Phone: Start: 08-12-2023 End: 08-12-2023 Patient encounter procedure [facility] Work Phone: Start: 07-02-2023 End: 07-02-2023 ambulatory [facility] Work Phone: Start: 07-02-2023 End: 07-02-2023 Patient encounter procedure [facility] Physician [facility] Nephrology Work Phone: Start: 06-24-2023 Non-patient / Non-visit [facility] Work Phone: Start: 06-18-2023 End: 06-18-[address] [facility] Work Phone: Start: 06-18-2023 End: 06-18-2023 Patient encounter procedure [facility] Physician [facility] Work Phone: Start: 06-13-2023 Non-patient / Non-visit [facility] Physician [facility] Work Phone: Start: 05-03-2023 End: 05-03-2023 Patient encounter procedure DO Harley Crespo Work Phone: [facility]ician Group- Start: 04-30-2023 End: 04-30-2023 ambulatory Kingsley Latisha Other [employer] Other Start: 04-30-2023 Telephone encounter Kingsley Latisha [facility] Start: 04-23-2023 End: 04-23-2023 ambulatory Tondra Mapus Other [employer] Other Start: 04-23-2023 Telephone encounter Tondra Varghese [facility] Start: 03-12-2023 (DM) Diabetes Tondra Varghese [facility] Start: 03-12-2023 End: 03-12-2023 ambulatory DO Harley Crespo Work Phone: [employer] Other Start: 03-12-2023 End: 03-12-2023 Discharged Recurring DO Harley Crespo Work Phone: [facility] Work Phone: Start: 03-12-2023 End: 03-12-2023 Patient encounter procedure DO Harley Crespo Work Phone: [facility] Work Phone: Start: 02-12-2023 End: 02-12-2023 ambulatory Harley Crespo Other [employer] Other Start: 02-12-2023 Telephone encounter Harley Crespo [facility] Start: 02-07-2023 End: 02-07-2023 ambulatory Harley Crespo Other [employer] Other Start: 02-07-2023 Telephone encounter Harley Crespo [facility] Start: 02-06-2023 End: 02-06-2023 ambulatory Tondra Mapus Other [employer] Other Start: 02-06-2023 Telephone encounter Tondra Mapus [facility] Start: 01-29-2023 End: 01-29-2023 ambulatory Harley Crespo Other [employer] Other Start: 01-29-2023 Telephone encounter Harley Crespo [facility] Start: 01-17-2023 End: 01-17-2023 ambulatory Tondra Mapus Other [employer] Other Start: 01-17-2023 Telephone encounter Tondra Mapus [facility] Start: 01-07-2023 End: 01-07-2023 ambulatory Harley Crespo Other [employer] Other Start: 01-07-2023 Office outpatient vi sit 25 minutes Kingsley Latisha [facility] Start: 01-07-2023 Telephone encounter Harley Crespo FP [facility] Start: 01-04-2023 End: 01-04-2023 ambulatory Kingsley Latisha Other [employer] Other Start: 01-04-2023 Telephone encounter Kingsley Latisha [facility] Start: 01-01-2023 End: 01-01-2023 ambulatory Kingsley Latisha Other [employer] Other Start: 01-01-2023 Telephone encounter Kingsley Latisha [facility] Start: 12-31-2022 End: 12-31-2022 ambulatory Harley Crespo Other [employer] Other Start: 12-31-2022 Office outpatient vi sit 25 minutes Harley Crespo [facility] Start: 12-31-2022 Telephone encounter Harley Crespo [facility] Start: 12-13-2022 End: 12-13-2022 ambulatory Denita Mihaela Other [employer] Other Start: 12-13-2022 Nursing evaluation o f patient and report Denitaclarita Chairez [facility] Start: 11-23-2022 End: 11-23-2022 ambulatory Tondra Mapus Other [employer] Other Start: 11-23-2022 Telephone encounter Tondra Mapus [facility] Start: 10-12-2022 End: 10-12-2022 ambulatory Tondra Mapus Other [employer] Other Start: 10-12-2022 Telephone encounter Tondra Mapus [facility] Start: 10-09-2022 End: 10-09-2022 ambulatory Harley Crespo Other [employer] Other Start: 10-09-2022 Telephone encounter Harley [facility] Start: 10-01-2022 End: 10-01-2022 ambulatory Harley Ball Other [employer] Other Start: 10-01-2022 Telephone encounter Harley [place] [facility] Start: 09-27-2022 End: 09-27-2022 ambulatory Kingsley Latisha Other [employer] Other Start: 09-27-2022 Telephone encounter Kingsley Latisha [facility] Start: 09-26-2022 End: 09-26-2022 ambulatory Harley [place] Other [employer] Other Start: 09-26-2022 Telephone encounter Harley [place] [facility] Start: 09-19-2022 End: 09-19-2022 ambulatory Kingsley Latisha Other [employer] Other Start: 09-19-2022 Telephone encounter Kingsley Latisha [facility] Start: 09-12-2022 End: 09-12-2022 ambulatory Harley [place] Other [employer] Other Start: 09-12-2022 Telephone encounter Harley [place] [facility] Start: 09-03-2022 End: 09-03-2022 ambulatory Harley [place] Other [employer] Other Start: 09-03-2022 Telephone encounter Harley [place] [facility] Start: 08-31-2022 End: 08-31-2022 ambulatory Harley [place] Other [employer] Other Start: 08-31-2022 Office outpatient vi sit 25 minutes Harley [facility] Start: 08-10-2022 End: 08-10-2022 ambulatory Harley [place] Other [employer] Other Start: 08-10-2022 Telephone encounter Harley HERRMANN [facility] Start: 08-09-2022 End: 08-10-[address] HARLEY CRESPO [facility] [employer] Other Start: 08-09-2022 Telephone encounter Kingsley Latisha [facility] Start: 07-02-2022 End: 07-02-2022 ambulatory Kingsley Latisha Other [employer] Other Start: 07-02-2022 Office outpatient vi sit 25 minutes Kingsley Latisha [facility] Start: 06-28-2022 End: 06-28-2022 ambulatory Harley Crespo Other [employer] Other Start: 06-28-2022 Patient encounter procedure Harley Crespo [facility] Start: 06-26-2022 (DM) Diabetes Tondra Mapus [facility] Start: 06-26-2022 End: 06-26-2022 ambulatory Tondra Mapus Other [employer] Other Start: 06-25-2022 End: 06-26-2022 ambulatory KINGSLEY LATISHA Facility:[facility] Start: 06-18-2022 End: 06-19-2022 ambulatory TONDRA MAPUS Facility:[facility] Start: 06-05-2022 End: 06-06-[address] HARLEY CRESPO Facility:[facility] Start: 05-26-2022 End: 05-26-2022 ambulatory Harley Crespo Other [employer] Other Start: 05-26-2022 Telephone encounter Harley HERRMANN [facility] Start: 05-25-2022 End: 05-25-2022 ambulatory Tondra Mapus Other [employer] Other Start: 05-25-2022 Telephone encounter Tondra Desireeus [facility] Start: 05-03-2022 End: 05-04-[address] PINKY BISHOP Facility:[facility] Start: 04-18-2022 End: 04-19-[address] PINKY BISHOP Facility:[facility] Start: 03-22-2022 End: 03-23-[address] HIGINIO FLANAGAN Facility:[facility] Start: 03-20-2022 (DM) Diabetes Tondra Mapus [facility] Start: 03-20-2022 End: 03-20-2022 ambulatory Tondra Mapus Other [employer] Other Start: 03-12-2022 End: 03-13-2022 Evaluation and management of inpatient DR PARUL CHU Facility:[facility] Start: 03-09-2022 End: 03-10-[address] SHANNON LANDIS Facility:[facility] Start: 03-02-2022 End: 03-03-[address] HARLEY CRESPO Facility:[facility] Start: 02-19-2022 End: 02-19-2022 ambulatory Tondra Mapus Other [employer] Other Start: 02-19-2022 Telephone encounter Tondra Mapus [facility] Start: 02-08-2022 End: 02-08-2022 ambulatory Tondra Mapus Other [employer] Other Start: 02-08-2022 Telephone encounter Tondra Mapus [facility] Start: 01-15-2022 End: 01-17-2022 Evaluation and management of inpatient DO Harley Crespo Work Phone: [facility] [place] [facility] Start: 01-15-2022 End: 01-15-[address] HARLEY CRESPO Facility:[facility] Start: 12-18-2021 Registered Recurring DO Zamudio in [place] Work Phone: [facility] Start: 12-18-2021 (DM) Diabetes Tondra Mapus [facility] Start: 12-18-2021 End: 12-18-2021 ambulatory Tondra Mapus Other [employer] Other Start: 12-08-2021 End: 12-09-[address] HARLEY CRESPO Facility:[facility] Start: 11-30-2021 End: 12-01-2021 ambulatory KINGSLEY LATISHA Facility:[facility] Start: 11-24-2021 End: 11-25-[address] HARLEY CRESPO Facility:[facility] Start: 11-16-2021 End: 11-16-2021 ambulatory Tondra Mapus Other [employer] Other Start: 11-16-2021 Telephone encounter Tondra Mapus [facility] Start: 2021 End: 2021 ambulatory Tondra Mapus Other [employer] Other Start: 2021 Telephone encounter Tondra Mapus [facility] Start: 10-31-2021 End: 10-31-2021 ambulatory Tondra Mapus Other [employer] Other Start: 10-31-2021 Telephone encounter Tondra Mapus [facility] Start: 10-27-2021 End: 10-27-2021 [...] 07-24-2021 End: 07-24-2021 ambulatory Tondra Mapus Other [employer] Other Start: 07-24-2021 Telephone encounter Tondra Mapus [facility] Start: 07-17-2021 (DM) Diabetes Tondra Mapus [facility] Start: 07-17-2021 End: 07-17-2021 ambulatory Tondra Mapus Other [employer] Other Start: 06-19-2021 End: 06-19-2021 ambulatory Shannon Escobar Other [employer] Other Start: 06-19-2021 Telephone encounter Shannon Escobar [facility] Start: 06-06-2021 End: 06-06-2021 ambulatory Kingsley Latisha Other [employer] Other Start: 06-06-2021 Office outpatient vi sit 25 minutes Kingsley Latisha [facility] Start: 05-22-2021 End: 05-22-2021 ambulatory Tondra Mapus Other [employer] Other Start: 05-22-2021 Telephone encounter Tondra Mapus [facility] Start: 05-16-2021 End: 05-16-2021 ambulatory Tondra Mapus Other [employer] Other Start: 05-16-2021 Telephone encounter Tondra Mapus [facility] Start: 04-10-2021 (DM) Diabetes Tondra Mapus [facility] Start: 04-10-2021 End: 04-10-2021 ambulatory Tondra Mapus Other [employer] Other Start: 04-10-2021 Telephone encounter Tondra Mapus [facility] Start: 02-14-2021 End: 02-14-2021 ambulatory Kingsley Latisha Other [facility] [employer] Other Start: 02-14-2021 Patient encounter procedure Noelle OAKLEY [facility] Start: 02-14-2021 Telephone encounter Arlen wKong [facility] Start: 01-03-2021 (DM) Diabetes Arlen Kwong [facility] Start: 10-14-2018 End: 10-15-2018 Patient encounter procedure [facility] Facility:[facility] Start: 02-24-2018 End: 02-25-2018 Evaluation and management of inpatient [facility] Facility:[facility] Procedures Date Procedure Procedure Detail Performing Clinician Start: 03-11-2022 Assistance with Respiratory Ventilation, Less than 24 Consecutive Hours, Continuous Positive Airway Pressure DR PINKY BISHOP Start: 01-16-2022 [facility] Angio w/grafts DO Harlye Crespo Work Phone: Start: 01-16-2022 DO Harley [...] WITH DRUG-ELUT INTRA, PERC APPROACH EHAB A ZABRINATAHAWJo Start: 02-24-2018 FLUOROSCOPY OF L INT MAMM GRAFT USING OTH CONTRAST EHAB A [place] Start: 02-24-2018 FLUOROSCOPY OF MULT COR A GRAFT USING OTH CONTRAST EHAB A ELTAHAWJo Start: 02-24-2018 FLUOROSCOPY OF MULTIPLE CORONARY ARTERIES [...] 04-01-1991 Coronary artery bypass graft Gagan Hastings History of placement of stent for coronary artery disease Jason LARKIN Pacemaker care management Pa oly LARKIN Percutaneous coronary intervention Gagan DAIVD Comment on above: stent/vein graft Plan of Treatment Date Care Activity Detail Author Start: 07-11-2031 Screening for malign ant neoplasm of colon [facility] Start: 07-27-2024 Patient referral [facility] Work Phone: Start: 07-14-2024 Patient referral [facility] Work Phone: Start: 07-07-2024 Urine culture [facility] Start: 06-11-2024 End: 06-11-2024 Patient encounter procedure 06/11/2024 11:50 AM EDT Office Visit [facility] [address] [facility] [address] [place] [address] Kenneth Tavera DPTracey [address] [facility] [place] [place] [address] [place] [address] [facility] Start: 04-02-2024 End: 04-02-2024 Patient encounter procedure [facility] Comment on above: 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, without long-term current use of insulin (CMS/HCC) (Primary Dx); Pain due to onychomycosis of toenails of both feet Start: 01-23-2024 End: 01-23-2024 Patient encounter procedure 01/23/2024 11:30 AM EDT Office Visit [facility] [address] [facility] [address] [place] [address] Kenneth Tavera DPM [address] [facility] [place] [place] [address] [place] [address] Diabetes 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, without long-term current use of insulin (CMS/HCC) (Primary Dx); Pain due to onychomycosis of toenails of both feet [facility] Comment on above: 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, without long-term current use of insulin (CMS/HCC) (Primary Dx); Pain due to onychomycosis of toenails of both feet Start: 10-26-2023 DIABETES SCREEN DIABETES SCREEN [facility] Start: 10-17-2023 Patient referral [facility] Work Phone: Start: 08-16-2023 Screening for malign ant neoplasm of colon FIT-DNA [facility] Start: 01-17-[address] [facility] Start: 01-17-2022 Radionuclide myocard ial perfusion stress study NM rachel perf SPECT rest & str [facility] Start: 01-17-2022 Referral to cardiac rehabilitation program [facility] Start: 01-16-2022 Hospital admission [facility] Start: 01-15-2022 Hospital admission [facility] Start: 11-30-2021 Influenza vaccination INFLUENZA (#1) [facility] Start: 10-24-2021 End: 12-24-2021 CBC W Auto Differential panel - Blood CBC + DIFF Lab Routine Monoclonal gammopathy Expected: 10/24/2021, Expires: 12/24/2021 [facility] Work Phone: Comment on above: Expected: 10/24/2021 , Expires: 12/24/2021 Start: 04-25-2021 Adult depression screening assessment DEPRESSION SCREENING [facility] Start: 04-01-2021 ADVANCE DIRECTIVE DISCUSSION ADVANCE DIRECTIVE DISCUSSION [facility] Start: 11-21-2020 COVID-19 VACCINE (3 - Booster for Pfizer series) COVID-19 VACCINE (3 - Booster for Pfizer series) [facility] Start: 11-07-2001 SHINGRIX VACCINE (1 of 2) SHINGRIX VACCINE (1 of 2) [facility] Start: 11-07-1996 COLOGUARD (FIT-DNA) COLOGUARD (FIT-D NA) [facility] Start: 11-07-1996 Colonoscopy COLONOSCOPY [facility] Start: 11-07-1996 COLORECTAL CANCER SCREENING COLORECTAL CANCER SCREENING [facility] Start: 11-07-[address] COLONOGRAPHY [facility] Start: 11-07-1996 FECAL OCCULT BLOOD FECAL OCCULT BLOO D [facility] Start: 11-07-1996 SIGMOIDOSCOPY SIGMOIDOSCOPY [facility] Start: 11-07-1986 LIPID SCREEN LIPID SCREEN [facility] Start: 11-07-1970 Urine microalbumin profile DTAP,TDAP,TD (1 - Tdap) [facility] Start: 11-07-1969 HEPATITIS C SCREENING HEPATITIS C SC APURVA [facility] Start: 1950 ABDOMINAL AORTIC ANEURYSM SCREENING ABDOMINAL AORTIC ANEURYSM SCREENING [facility] Start: 1950 Screening for malign ant neoplasm of colon [facility] Comprehensive metabo lic 1999 panel - Serum or Plasma [facility] Comprehensive metabo lic 1999 panel - Serum or Plasma [facility] CT Abdomen and Pelvi s WO contrast [facility] CT Abdomen and Pelvi s WO contrast [facility] Patient Education [facility] Work Phone: Patient referral [facility] Work Phone: Renal function 2000 panel - Serum or Plasma [facility] Renal function 1999 panel - Serum or Plasma [facility] Renal function 1999 panel - Serum or Plasma [facility] Immunizations Immunization Date Immunization Notes Care Provider Poli patel 12-12-2023 influenza virus vaccine, unspecified formulation Jason LARKIN [facility] 12-12-2023 influenza, high dose seasonal, preservative-free [facility] 12-13-2022 influenza, high dose seasonal, preservative-free Denita Mihaela Other [employer] Other 12-13-2022 influenza virus vaccine, unspecified formulation DO Harley Crespo Work Phone: [facility] 12-15-2021 influenza virus vaccine, unspecified formulation DO Harley Crespo Work Phone: [facility] 12-15-2021 influenza, high dose seasonal, preservative-free Harley Crespo Other [employer] Other 02-21-2021 COVID-19 mRNA, Comirnaty (Pfizer) DO Harley Crespo Work Phone: [facility] 06-21-2020 COVID-19 Vaccine Pfi zer - Documentation Purposes Only Tondra Mapus Other [facility] 05-30-2020 COVID-19 Vaccine Pfi zer - Documentation Purposes Only Tondra Mapus Other [facility] 01-17-2018 influenza virus vaccine, unspecified formulation Jason LARKIN [facility] [place] 01-17-2018 pneumococcal polysaccharide vaccine, 23 valent Abdon Walker MD Work Phone: [facility] 01-17-2018 Seasonal trivalent influenza vaccine, adjuvanted, preservative free Abdon Walker MD Work Phone: [facility] 01-16-2017 influenza virus vaccine, unspecified formulation Jason LARKIN [facility] [place] 01-16-2017 influenza, high dose seasonal, preservative-free Abdon Walker MD Work Phone: [facility] 11-30-2016 influenza virus vaccine, unspecified formulation Jason LARKIN [facility] 11-30-2016 influenza, injectabl e, quadrivalent, preservative free Abdon Walker MD Work Phone: [facility] 11-14-2016 pneumococcal conjuga te vaccine, 13 valent Abdon Walker MD Work Phone: [facility] 04-02-2016 pneumococcal polysaccharide vaccine, 23 valent Tondra Mapus Other [facility] 01-23-2012 influenza virus vaccine, unspecified formulation Jason LARKIN [facility] [place] 01-23-2012 influenza, seasonal, injectable Abdon Walker MD Work Phone: [facility] 12-13-2010 influenza virus vaccine, unspecified formulation Jason LARKIN [facility] 12-13-2010 influenza, seasonal, injectable Abdon Walker MD Work Phone: [facility] 01-27-2009 novel [id number], preservative-free, injectable Abdon Walker MD Work Phone: [facility] 01-19-2008 influenza virus vaccine, whole virus Abdon Walker MD Work Phone: [facility] 01-19-2008 influenza, whole Jason EZ HERNANDES [facility] [place] Payers Date Payer Category Payer Self-pay [id number] 2021 Unknown [id number] 2021 Private Health Insurance [employer] [id number] 2019 Unknown MMO MMO MEDICARE SUPPLEMENT [id number] 2019-Present [phone] [address] [place] [address] Indemnity [id number] 2016 Medicare MEDICARE MEDICAR E A AND B [id number] 2016-Present [phone] [address] [address] [place] [address] Medicare [id number] 2016 Medicare [id number] 1959 Medicare [id number] 1959 Unknown [id number] 1951 Unknown [id number] 2.16.840.1.653157.3.579.2. 647 1950 Unknown [id number] 2.16.840.1.935402.3.579.2. 647 1950 Unknown [id number] 2.16.840.1.562915.3.579.2. 593 1950 Unknown [id number] 2.16.840.1.454505.3.579.2. 593 1950 Unknown [id number] 2.16.840.1.083445.3.579.2. 593 1950 Unknown [id number] 2.16.840.1.510278.3.579.2. 593 1950 Unknown [id number] 2.16.840.1.730395.3.579.2. 593 1950 Unknown [id number] 2.16.840.1.372130.3.579.2. 593 1950 Unknown [id number] 2.16.840.1.905576.3.579.2. 593 1950 Unknown [id number] 2.16840.1.679961.3.579.2. 593 1950 Unknown [id number] 2.16.840.1.641329.3.579.2. 593 1950 Unknown [id number] 2.16.840.1.490062.3.579.2. 593 1950 Unknown [id number] 2.16.840.1.004318.3.579.2. 593 1950 Unknown [id number] 2.16840.1.584094.3.579.2. 593 1950 Unknown [id number] 2.16.840.1.622975.3.579.2. 593 1950 Unknown [id number] 2.16.840.1.458971.3.579.2. 593 1950 Unknown [id number] 2.16.840.1.157168.3.579.2. 593 1950 Unknown [id number] 2.16.840.1.504888.3.579.2. 593 1950 Unknown [id number] 2.16.840.1.173200.3.579.2. 593 1950 Unknown [id number] 2.16.840.1.308113.3.579.2. 593 1950 Unknown [id number] 2.16.840.1.737423.3.579.2. 1259 1950 Unknown [id number] 2.16.840.1.708257.3.579.2. 1259 1951 Unknown [id number] 2.16.840.1.050814.3.579.2. 1259 1951 Unknown [id number] 2.16.840.1.014747.3.579.2. 1259 1950 Unknown [id number] 2.16.840.1.398174.3.579.2. 727 1950 Unknown [id number] 2.16.840.1.418961.3.579.2. 727 1950 Unknown [id number] 2.16.840.1.969124.3.579.2. 727 Unknown [id number] Unknown HCAP/HFA/FAP Active [id number] Unknown HCAP/HFA/FAP Active [id number] Unknown [id number] 2.16.840.1.091393.3.579.2. 531 Unknown [id number] 2.16.840.1.166298.3.579.2. 531 Social History Date Type Detail Facility Unknown if ever smoked [employer] Other Start: 11-07-2023 End: 01-23-2024 Sex Assigned At [employer] Other Start: 09-29-2021 End: 05-28-2024 Tobacco smoking status Ex-smoker (finding) [facility] Tobacco smoking status Never [facility] Start: 07-23-2018 End: 10-12-2022 Tobacco use and exposure Smokeless tobacco non-user [facility] Start: 10-25-2020 Alcohol intake Ex-drinker (finding) [facility] Start: 1950 Sex Assigned At Not on file [facility] Start: 1950 Sex Assigned At Male [facility] Start: 10-12-2022 [facility] Start: 11-07-2023 End: 04-02-2024 Alcoholic beverage intake [employer]er [facility] Start: 11-07-2023 End: 01-23-2024 History of Social function [facility] Start: 05-28-2012 End: 04-30-2024 Sex Male (finding) [facility] Sexual Orientation [facility] Medical Equipment Procedure Code Equipment [...] Assessment Result Facility 08-04-2024 Functional Status N/A [facility] 01-17-2022 Functional status Patient at Baseline [facility] Work Phone: 09-29-2021 Functional Status N/A [facility] Mental Status Date Assessment Result Facility 01-17-2022 Cognitive function Cognitive Sta tus Patient at Baseline [facility] Work Phone: Clinical Notes 01-03-2021 to 08-20-2024 Note Date & Type Note Facility 08-20-[address] [facility] Cardiology Clinic Note Chief Complaint: Patient here for follow up [facility] for an OR and bladder surgery clearance. Patient states he [...] medical history of CAD status post CABG x 5, PCI to SVG-PDA on 08/2023, HFrEF EF [...] mildly elevated troponin. Patient was transferred to [facility] for further evaluation and treatment. Of [...] PVD (peripheral vascular disease), and Third degree heart block (CMS/HCC). Surgical [...] mouth in the morning for 30 doses., Disp: 30 tablet, Rfl: 0 aspirin 81 mg chewable tablet, Chew 1 tablet every day by oral route., Disp: , Rfl: cholecalciferol (Vitamin D3) 25 MCG (1000 units) tablet, Take 1,000 Units by mouth in the morning., Disp: , Rfl: clopidogrel (Plavix) 75 mg [...] with lunch, and with evening meal. Sliding scale, Disp: , Rfl: insulin detemir (Levemir) 100 unit/mL injection, Inject 5 Units under the skin two times daily., Disp: , Rfl: isosor (more content not included)... [facility] 08-14-2024 Note Hospital Medicine Discharge Summary Final Discharge [...] medical history of CAD status post CABG x 5, PCI to SVG-PDA on 08/2023, HFrEF EF [...] mildly elevated troponin. Patient was transferred to [facility] for further evaluation and treatment. Of [...] test Consultations During Admission: Cardiology Dear DO Crespo Thomas is advised to follow up with you within 1-2 weeks. Items to follow up in ambulatory setting: Patient will need to follow-up with cardiology in 1 week for consideration for cardiac cath Follow-up with: Cardiology Scheduled appointments: Future Appointments Date Time Provider Department Center 08/20/2024 9:45 AM Pinky Bishop MD [facility] Luis Enrique [facility] 08/28/2024 8:30 AM Last Mcmanus MD [facility] URO Second Fl Your medication list START taking these medications [...] Medications These medications were sent to [facility] - [place], [place] - [address] [place] [address] [place] [address], [facility] [id number] amLODIPine 5 mg tablet Lani has No Known Allergies. Disposition: Home or Self Care () Discharge Condition: Stable Code Status: Prior Diagnostic Results Hematology: Results from last 7 days Lab Units 08/13/24 1421 WBC AUTO 10*3/uL 7.62 HEMOGLOBIN g/dL 13.1 HEMATOCRIT % 39.8 MCV fL 89.0 PLATELETS AUTO 10*3/uL 201 Chemistry: Results from last 7 days Lab Units (more content not included)... [facility] 08-14-2024 Note Adult Nutrition Asse ssment: Name: Lani [...] weight has been pretty stable. Pt reported that he was on Ozempic and he lost weight while on it, but he has gained the weight back. Nutrition Assessment: Pt reported no recent changes in his appetite or intake. Pt reported that he will eat 2 meals a day and snacks. Pt reported that he does not [...] of Nutrition and Dietetics (AND) and the [place] Society of Enteral and Parenteral Nutrition (ASPEN). Nutrition Education: Diet literature: Heart Failure Nutrition Therapy (reviewed and encouraged flavoring alternatives to salt, recommended adequate intake of fruits/vegetables at each meal and for snacks, encouraged choosing lean proteins, encouraged preparing more meals at home, recommended decreasing frequency of eating out/take-out foods, and encouraged avoiding or limiting salty snacks/processed foods/frozen foods ) Diabetes Nutrition Therapy (discussed the importance of regular scheduled meals and snacks, explained the difference between simp (more content not included)... [facility] 08-14-2024 Note 08/14/24 1204 Admission Assessment Questions Verify insurance with patient Yes Do you understand medical disease or what brought you into the hospital? Yes Who is your current PCP? Harley Crespo Can I schedule a follow up appointment for you at the time of discharge? Yes Do you understand why you are taking your current medications? Yes Are you taking your medications as prescribed? Yes Did patient provide teach back? No Pharmacy Bedside Delivery Status Interested Does the patient have a clinical case manager assigned to them through their [...] to send link and activate MyChart? No [facility] 08-14-2024 Note Attestation signed by Rashid Urrutia MD at 08/14/2024 5:03 PM (Updated) Mr. Lizama was seen by Dr. Pagan [...] amlodipine 5 daily, have him see Dr. Bishop, do cardiac rehab at [place] and if he has uncontrolled chest pain then proceed with cath. Cardiology Progress Note Subjective Subjective: Patient seen [...] oral, Daily, Graeme Sorensen MD, 10 mg at 08/13/24 1554 glucose chewable tablet 24 g, 24 [...] BID, Graeme Sorensen MD, 5 Units at 08/13/24 2206 insulin lispro (HumaLOG) injection 0-5 Units, 0-5 Units, subcutaneous, TID with meals, 1 Units at 08/14/24 0749 AND insulin lispro (HumaLOG) injection 0-4 Units, 0-4 Units, subcutaneous, Nightly, Graeme Sorensen MD insulin lispro (HumaLOG) injection 10 Units, 10 Units, subcutaneous, TID with meals, Graeme Sorensen MD, 10 Units at 08/13/24 1805 isosorbide mononitrate ER (Imdur) 24 hr tablet 60 mg, 60 mg, oral, 2 times daily, Graeme Sorensen MD, 60 mg at 08/14/24 0605 kit prep Tc 99m-sestamibi no.1 (Cardiolite) radio-isotope injection 10 millicurie, 10 millicurie, intravenous, Once in imaging, Sp Sanchez MD, 10 millicurie at 08/14/24 0828 kit prep Tc 99m-sestamibi no.1 (Cardiolite) radio-isotope injection 30 millicurie, 30 millicurie, intravenous, Once in imaging, Sp Sanchez MD, 30 millicurie at 08/14/24 1057 metoprolol succinate XL (Toprol-XL) 24 hr tablet 150 mg, 150 mg, oral, Daily, Graeme Sorensen MD, 150 mg at 08/13/24 1553 nitroglycerin (Nitrostat) SL tablet 0.4 mg, 0.4 mg, sublingual, q5 min PRN, Graeme Sorensen MD pantoprazole (ProtoNix) EC tablet 40 mg, 40 mg, oral, Daily, Graeme Sorensen MD, 40 mg at 08/14/24 0605 ranolazine (Ranexa) 12 hr tablet 500 mg, 500 mg, oral, BID, Graeme Sorensen MD, 500 mg at 08/13/24 2207 rosuvastatin (Crestor) tablet 40 mg, 40 mg, oral, Nightly, Graeme Sorensen MD, 40 mg at 08/13/24 2206 spironolactone (Aldactone) tablet 25 mg, 25 mg, oral, Daily, Graeme Sorensen MD, 25 mg at 08/13/24 1553 thiamine (Vitamin B-1) tablet 100 mg, 100 mg, oral, Every other day, Graeme Sorensen MD [START ON 08/15/2024] thiamine (Vitamin B-1) tablet 250 mg, 250 mg, oral, Every other day, Graeme Sorensen MD Objective: Patient Vitals for the past 24 hrs: BP Temp Temp src Pulse Resp SpO2 Height Weight 08/14/24 0750 118/75 36.1 ???C (97 ???F) Temporal 81 16 98 % -- -- 08/14/24 0600 -- -- -- -- -- -- -- 82.4 kg (181 lb 9.6 oz) 08/14/24 0408 (!) 102/49 36.1 ???C (97 ???F) Temporal 76 16 98 % -- -- 08/14/24 0011 104/55 36.1 ???C (97 ???F) Temporal 79 15 97 % -- -- 08/13/24 2000 115/64 36 ???C (96.8 ???F) Temporal 82 18 98 % -- -- 08/13/24 1551 135/71 36.6 ???C (97.9 ???F) [facility] 82 15 -- -- -- 08/13/24 1126 105/51 36.4 ???C (97.5 ???F) Temporal 82 26 98 % 1.702 m [...] Right lower leg: No edema. Left lower (more content not included)... [facility] 08-13-2024 Note [facility] Recent cystoscopy fo akil urology CODE STATUS full code [facility] 08-13-2024 Note On antiplatelet agen t watch for hematuria and follow [facility] 08-13-2024 Note As above [facility] 08-13-2024 Note Avoid hypovolemia an d nephrotoxic meds hold lisinopril since patient on Aldactone watch potassium electrolyte creatinine renal function consider nephrology consult [facility] 08-13-2024 Note Decongestive breath/ guideline directed medical therapy limited because of renal function watch creatinine electrolytes especially potassium intake and output [facility] 08-13-2024 Note Chest pain-free, cyc le troponin telemetry continue statin aspirin nitrates beta-jason watch for hypotension and bradycardia cardiology to see patient [facility] 08-13-2024 Note Hospital Medicine History and Physical 08/13/2024 1:16 PM THE HOSPITALIST TEAM PREFERS TO USE [employer] FOR NON-URGENT COMMUNICATION 7AM-7PM. IF I DO NOT RESPOND WITHIN 20 MINUTES OR URGENT MATTERS, PLEASE CALL THROUGH THE AND RESCUE FIRE FIGHTER CRASH FIRE. FROM 7PM-7AM, PLEASE PAGE [phone](COVR). Chief Complaint No chief complaint on file. History of Present Illness Lani Lizama is an 73 y.o. male 73 years old white male transferred from [facility] with intermittent chest pain anterior chest radiating [...] basal and postprandial insulin. His labs from [facility] reveals patient having chronic kidney disease stage III with EGFR 33. Patient level of activity is very much limited due to osteoarthritis involving and shoulders. He has been complaining of intermittent painless hematuria at times profuse and was recentlydiagnosed with bladder cancer underwent Review of System and Physical Exam Temp: [36.4 ???C (97.5 ???F)] 36.4 ???C (97.5 ???F) Heart Rate: [82] 82 Resp: [26] 26 [...] HFrEF (heart failure with reduced ejection fraction) ([facility]) Decongestive breath/guideline directed medical therapy limited because of renal function watch creatinine electrolytes especially potassium intake and output Coronary artery disease involving modoc coronary artery of modoc heart As above Chronic kidney disease Avoid hypovolemia and nephrotoxic meds hold lisinopril since patient on Aldactone watch potassium electrolyte creatinine renal function consider nephrology consult Type 2 diabetes mellitus without complication, with long-term current use of insulin ([facility]) Insulin blood sugar check diet Angina at rest As above Gross hematuria On antiplatelet agent watch for hematuria and follow Bladder cancer ([facility]) Recent cystoscopy follows urology CODE STATUS full code VTE Prophylaxis: Heparin subcutaneous watch for bleed ----- Focus of this inpatient stay will remain on problems that need acute care setting for care. We will review available studies and will order additional labs, imaging and other studies as appropriate. As need (more content not included)... [facility] 08-04-2024 Hospital Discharge instructions Patient Education 08/04/2024 10:07:15 EU - [...] Up Care 08/03/2024 14:29:05 With:Jason LARKIN Address: [address] [place], [place] [id number] Business (1) When: Unknown Comments:Office will call to schedule follow up [facility] 08-04-2024 Note Patient Education Custom Cystoscopy [...] you have a fever over 100 degrees. [facility] 08-03-2024 Note Patient Education Urology Cystoscopy Cystoscopy [...] including vitamins, herbs, eye drops, creams, and vgbf-yha-phvsnpw medicines. ??? Any problems you or family [...] tells you to take them. ??? Taking ojun-urc-xaineca medicines, vitamins, herbs, and supplements. Tests You [...] these instructions at home: Medicines ??? Take mkms-ibw-wbcsxis and prescription medicines only as told by [...] (biopsy) during your (more content not included)... [facility] 07-14-2024 Evaluation note Diagnosis Onset Date Resolution Chronic HFrEF (heart failure with reduced ejection fraction) acute July 14, 025 9:36am CKD (chronic kidney disease) stage [...] with reduced ejection fraction) acute July 27, 025 11:19am Chronic kidney disease acute Ap [...] HLD (hyperlipidemia) deleted August 03, 2024 9:17am [facility] Work Phone: 1(909) 975-390601-30-2025 Evaluation note* Diagnosis Onset Date Resolution Status Admit Date BMI 28.0-28.9,adult acute 2024 9:21am Dietary counseling and surveillance acute April 30 9:21am HTN (hypertension) acute 2024 9:21am DM2 (diabetes mellitus, type 2) indio soraya April 30, 2024 9:21am HLD (hyperlipidemia) deleted Desean lee ann 2024 9:21am Chronic HFrEF (heart failure with [...] h hyperglycemia acute July 27, 2024 11:19am [facility] Work Phone: 1(728) 733-474601-16-2025 Evaluation note* Diagnosis Onset Date Resolution Status [...] 9:21am DM2 (diabetes mellitus, type 2) indio April 30, 2024 9:21am HLD (hyperlipidemia) deleted 2024 9:21am [facility] Work Phone: 1(199) 554-849401-16-2025 Evaluation note* Diagnosis Onset Date Resolution Status Admit Date Chronic HFrEF (heart failure with reduced ejection fraction) acute 2024 8:19am [facility] kidney [facility] HTN (hypertension) acute 2024 8:19am [...] kidney disease acute July 14, 2024 9:36am [facility] Work Phone: 1(972) 502-142701-02-2025 History of Present illness Narrative* Kenneth Mota Liang, DPM - 04/02/2024 11:50 AM EST Patient: [...] retinopathy (CMS/HCC) HTN (hypertension) (CMS/HCC) Hypercholesteremia (CMS/HCC) OR (myocardial infarction) (CMS/HCC) 2021 Two total: 02/20, [...] in the morning., Disp: , Rfl: HYDROcodone-acetaminophen ([place]) 5-325 MG tablet, TAKE 1 TABLET BY [...] Strain: Low Risk (02/13/2024) Received from [facility] Overall Financial Resource Strain (CARDIA) Difficulty of Paying Living Expenses: Not very hard Food Insecurity: No Food Insecurity (02/13/2024) Received from [facility] Hunger Vital Sign Within the past 12 months, you worried that your food would run out before you got the money to buymore.: Never true Ran Out of Food in the Last Year: Not on file Transportation Needs: No Transportation Needs (02/13/2024) Received from [facility] Transportation In the past 12 months, has lack of transportation kept you from medical appointments or from getting medications?: No Lack of Transportation (Non-Medical): Not on file Physical Activity: Not on file Stress: Not on file Social Connections: Not on file Intimate Partner Violence: Unknown (02/13/2024) Received from [facility] Humiliation, Afraid, Rape, and Kick questionnaire Fear of Current or Ex-Partner: No Emotionally Abused: Not on file Physically Abused: Not on file Sexually Abused: Not on file Housing Stability: Low Risk (02/13/2024) Received from [facility] Housing Stability Vital Sign In the last 12 months, was there a time when you were not able to pay the mortgage or rent on time?: No Number of Times Moved in the Last Year: Not on file At any time in the past 12 months, were you homeless or living in a long-term (including now)?: No ROS: General: denies fever, [...] and negative PT pedal pulses NEURO: 5.07 [place] Chun monofilament test diminished to digits and forefoot bilaterally 125Hz tuning fork diminished to 1st MPJ bilaterally ORTHO: Positive pain on palpation to nails 1 through 10 ASSESSMENT 1. Diabetes 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, without long-term current use of insulin ([facility]) 2. Pain due to onychomycosis of toenails [...] him Kenneth Tavera DPM documented in this encounterSaint Joseph Health [id number] NoteUT Cardiology Consult Note Reason for visit: Complete heart block on event monitor, HFrEF 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%, atrial tachycardia 03/10/24 Patient here for 5 mo follow up bradycardia, complete heart block s/p PPM per Dr. Bishop. He was also admitted to [facility] for NSTEMI last month. Underwent heart cath with Dr. Pena on 02/12. He was started on Ranexa and lisinopril was stopped. Denies chest pain, SOB, and palpitations. Gets lightheaded at times, but no syncopal episodes. 05/07/23 Patient is s/p BiV ICD. he feels much better and believes that he is gone from 4/0 to 7/10 with [employer]ENIOR [employer]INFORMAT[employer] SCI[employer]IST. patient has got good device threshold. [...] and hypertension. He was recently admitted to [facility] for NSTEMI. Had inpatient stress test and heart cath. Denies SOB but still having chest pain and has taken nitroglycerin a few times for relief. Had CT chest last week s/p discharge. Cardiac catheterization revealed patent bypass grafts and worsening modoc vessel disease. Medications were adjusted. I had [...] Tobacco Use: Low Risk (01/23/2024) Received from [facility], [facility] Patient History Smoking Tobacco Use: Never Smokeless Tobacco Use: Never Passive Exposure: Not on file Alcohol Use: Not At Risk (03/13/2018) Received from [employer] [employer] Frequency of Alcohol Consumption: Never Average [...] Abused: Not on f (more content not included)...[facility]11-[facility] Evaluation note* Diagnosis Onset Date Resolution Status [...] 2024 9:21am HLD (hyperlipidemia) deleted 2024 9:21am [facility] Work Phone: 1(745) 691-957811-15-2024 NoteHospital Medicine Discharge Summary Final Discharge Diagnosis: NSTEMI CAD s/p CABG, PCI 08/2023 Chronic heart failure with reduced ejection fraction, NYHA class II Insulin-dependent type 2 diabetes mellitus Chronic kidney disease stage III A Third degree AV block with AICD/pacemaker Essential hypertension Carotid stenosis Hyperlipidemia Peripheral vascular disease Admission Diagnosis: NSTEMI (non-ST elevated myocardial infarction) (CMS/[facility]) [I21.4] Hospital course: Lani Lizama is an 73 y.o. male who came from Transferred from [facility] with NSTEMI with NSTEMI. 71-year-old gentleman with [...] procedure on that. Patient was transferred from [facility] to [facility] where he was seen for chest pain that has been going on for most of the day causing him to take nitroglycerin on 5 separate incidences and with intensification of the chest pain at shortening intervals that caused him to call the ambulance. At [facility] workup did show that patient had rising troponins initial 1 was 23 and then 85 isa intensity troponin. There was no mention change on the EKG as was reported to me by the ER physician Dr. Lagos at [facility]. Other workup that was done at [facility] included basic metabolic panel that showed a [...] history as above. The ER physician from [facility] had spoken to our finisher polisher here who accepted the patient for transfer to [facility] for possible trip to the [employer] very early this morning depending on the [...] 03/10/2024 10:45 AM Kevin Arteaga MD [facility] Your medication [...] 40 mg tablet Commonly (more content not included)...[facility] 02-13-2024 NoteHospital Medicine Daily Progress Note - 02/13/2024 8:36 AM; Room: [address] [place] [address] Admission: 02/13/2024 2:53 AM; Length of stay: 0 days THE HOSPITALIST TEAM PREFERS TO USE [employer] FOR COMMUNICATION 7AM-7PM. IF I DO NOT RESPOND WITHIN 15 MINUTES, PLEASE PAGE ME/CALL THROUGH THE AND RESCUE FIRE FIGHTER CRASH FIRE. FROM 7PM-7AM, PLEASE PAGE [phone](COVR) Code Status: Full Code Barriers to Discharge: NSTEMI Expected Discharge Date: 2-3 days Discharge Destination: home Overview Patient is seen for evaluation and management of chest pain. Subjective Patient was examined at bedside resting comfortably. He presented overnight to ED after transfer from [place]. He states that he had crushing chest [...] Principal Problem: NSTEMI (non-ST elevated myocardial infarction) ([facility]) Active Problems: Coronary atherosclerosis Essential hypertension History of coronary artery bypass surgery Mixed hyperlipidemia Stage 3 chronic kidney disease ([facility]) Chest pain Type 2 diabetes mellitus with hyperglycemia ([facility]) PVD (peripheral vascular disease) ([facility]) Carotid stenosis, asymptomatic Assessment and Plan Lani Lizama is a 73 year old male with a past medical history of CAD with 9 stents, 5 vessel CABG, HTN, HLD, DM2, third degree AV block with pacemaker/AICD presented as a transfer from [place] ED with worsening crushing, radiating chest pain. Patient is being admitted to [facility] and cardiology has been consulted. [...] subcutaneous, Nightly isosorbide mononitra (more content not included)...[facility]11-14-2024 NoteHospital Medicine History and Physical 02/13/2024 3:40 AM THE HOSPITALIST TEAM PREFERS TO USE [employer] FOR NON-URGENT COMMUNICATION 7AM-7PM. IF I DO NOT RESPOND WITHIN 20 MINUTES OR URGENT MATTERS, PLEASE CALL THROUGH THE AND RESCUE FIRE FIGHTER CRASH FIRE. FROM 7PM-7AM, PLEASE PAGE [phone](COVR). Chief Complaint No chief complaint on file. History of Present Illness Lani Lizama is an 73 y.o. male who came from Transferred from [facility] with NSTEMI with NSTEMI. 71-year-old gentleman with [...] procedure on that. Patient was transferred from [facility] to [facility] where he was seen for chest pain that has been going on for most of the day causing him to take nitroglycerin on 5 separate incidences and with intensification of the chest pain at shortening intervals that caused him to call the ambulance. At [facility] workup did show that patient had rising troponins initial 1 was 23 and then 85 isa intensity troponin. There was no mention change on the EKG as was reported to me by the ER physician Dr. Lagos at [facility]. Other workup that was done at [facility] included basic metabolic panel that showed a [...] history as above. The ER physician from [facility] had spoken to our finisher polisher here who accepted the patient for transfer to [facility] for possible trip to the [facility] [employer] very early this morning depending on the [...] pain Type 2 diabetes mellitus with hyperglycemia ([facility]/HCC) PVD (peripheral vascular disease) ([facility]) Carotid stenosis, asymptomatic Assessment and Plan PLAN OF CARE: 71-year-old gentleman with very profuse history of cardiovascular disease including prior CAD with stents and CABG as well as hypertension and HLD comes seen with acute NSTEMI. Patient is being admitted to [facility] and cardiology has been consulted with possible trip to the [facility] [employer] at the earliest possible time by cardiology. [...] be -Consult cardiology (done) (more content not included)...[facility]10-24-2024 History of Present illness Narrative* Kenneth Tavera, MAURICEM - 01/23/2024 11:30 AM EDT Patient: Lani [...] has only been using prescribed or recommended awwp-cgf-oabrmkn cream with some improvement. Patient also has longstanding history of multiple MIs and cardiac history Allergies: Allergies Allergen Reactions Other Other Reaction(s): Unknown Received name: Nkda Past Medical History: Past Medical History: Diagnosis Date Diabetic retinopathy (CMS/HCC) HTN (hypertension) (CMS/HCC) Hypercholesteremia (CMS/HCC) OR (myocardial infarction) (CMS/HCC) 2021 Two total: 02/20, [...] in the morning., Disp: , Rfl: HYDROcodone-acetaminophen ([place]) 5-325 MG tablet, TAKE 1 TABLET BY [...] Strain: Low Risk (09/26/2023) Received from [facility] Overall Financial Resource Strain (CARDIA) Difficulty of Paying Living Expenses: Not very hard Food Insecurity: No Food Insecurity (09/26/2023) Received from [facility] Hunger Vital Sign Within the past 12 months, you worried that your food would run out before you got the money to buymore.: Never true Ran Out of Food in the Last Year: Not on file Transportation Needs: No Transportation Needs (09/26/2023) Received from [facility] Transportation In the past 12 months, has lack of transportation kept you from medical appointments or from getting medications?: No Lack of Transportation (Non-Medical): Not on file Physical Activity: Not on file Stress: Not on file Social Connections: Not on file Intimate Partner Violence: Unknown (09/26/2023) Received from [facility] Humiliation, Afraid, Rape, and Kick questionnaire Fear of Current or Ex-Partner: No Emotionally Abused: Not on file Physically Abused: Not on file Sexually Abused: Not on file Housing Stability: Low Risk (09/26/2023) Received from [facility] Housing Stability Vital Sign Unable [...] and negative PT pedal pulses NEURO: 5.07 [place] Chun monofilament test diminished to digits and forefoot bilaterally 125Hz tuning fork diminished to 1st MPJ bilaterally ORTHO: Positive pain on palpation to nails 1 through 10 ASSESSMENT 1. Diabetes 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, without long-term current use of insulin ([facility]) 2. Pain due to onychomycosis of toenails [...] him Kenneth Tavera DPM documented in this encounterSaint Joseph Health [id number] NoteBELLEV[facility]IC Cardiology [facility] Note Chief Complaint: Patient here for follow up [facility] for NSTEMI. Underwent PCI on 09/27/[address] Foreman. Says he feels much better s/p intervention. Denies chest pain, SOB, palpitations, and lightheadedness/syncope. HPI: Lani Lizama is a 72 y.o. male Hospital Medicine Discharge Summary Final Discharge Diagnosis: #NSTEMI #chronic HFrEF NYHA class I #CAD #HTN #Diabetes #Hx bradycardia Admission Diagnosis: NSTEMI (non-ST elevated myocardial infarction) ([facility]) [I21.4] Hospital course: 72-year-old male with past medical history significant for CAD status post CABG x 5 vessels and history of 7 PCI's who presented to the hospital due to chest pain. The patient does have HFrEF with an EF of 15 to 20% status post BiV SENIOR BIOINFORMATICS SCIENTIST-D. Patient reports compliance with his medications and that he is not requiring diuretics. Initial evaluation at the outside hospital showed elevated high-sensitivity troponins and he was sent to [facility] for an evaluation by cardiology. [...] disease) (CMS/HCC), and Third degree heart block (CMS/[facility]). Surgical History He has a past [...] 98% BMI 27.88 kg (more content not included)...[facility]06-29-2024 Note Attestation signed by Kevin Arteaga MD [...] Value Ventricular Rate 78 Atrial Rate 78 TN Interval 160 QRS DURATION 144 QT Interval 444 QTC CALCULATION(BAZETT) 506 P Polk 49 R-Polk -41 T Wave Polk 106 Impression Atrial-sensed ventricular-paced rhythm Abnormal ECG When compared with ECG of 26-SEP-2023 18:59, Vent. rate has decreased BY 3 BPM Lab Results Component Value Date TROPONINI 3.05 (HH) 09/27/2023 Complete Echo (TTE) w/wo Imaging Agent, Strain, 3D, Bubble Study Result Date: 09/27/2023 1 1 [facility] Heart Station [address] [place] [address] [phone] (fax) Echocardiogram-[facility] Name: LANI LIZAMA Study Date: 09/27/2023 07:42 AM B/P: 118 mmHg/57 mmHg (more content not included)...[facility] 09-28-2023 NoteHospital Medicine Discharge Summary Final Discharge Diagnosis: #NSTEMI #chronic HFrEF NYHA class I #CAD #HTN #Diabetes #Hx bradycardia Admission Diagnosis: NSTEMI (non-ST elevated myocardial infarction) ([facility]) [I21.4] Hospital course: 72-year-old male with past medical history significant for CAD status post CABG x 5 vessels and history of 7 PCI's who presented to the hospital due to chest pain. The patient does have HFrEF with an EF of 15 to 20% status post BiV SENIOR BIOINFORMATICS SCIENTIST-D. Patient reports compliance with his medications and that he is not requiring diuretics. Initial evaluation at the outside hospital showed elevated high-sensitivity troponins and he was sent to [facility] for an evaluation by cardiology. [...] Heidy Dee MD Hospital Medicine 09/28/2023 11:15 AMUnC[facility]06-28-[facility] NotePatient: Lani Lizama Procedure Information Date/Time: 09/27/23 1300 Procedure: Coronary angiography Location: [facility] WEB USER EXPERIENCE STRATEGIST 3 / [facility] (Cath) Providers: Luisito Foreman [...] discussed with fellow and attending. Additional Equipment RequestsMer[facility]06-28-[facility]24 Note Adult Nutrition Assessment: Name: Lani Lizama Date: 1950 Date of Visit: 09/27/23 Admission Dx: NSTEMI (non-ST elevated myocardial infarction) ([facility]) [I21.4] Reason for assessment: high risk -wound Information obtained from: patient, family, medical record, and nursing -son at bedside Past Medical History: Diagnosis Date Carotid artery stenosis Coronary artery disease Diabetes mellitus ([facility]) Hyperlipidemia Hypertension PVD (peripheral vascular disease) ([facility]) Third degree heart block ([facility]) CABG x5, stents, EF 30%, HF [...] Question: Reason for NPO: Answer: Operation/Procedure 09/26/23 5103 Percent Meals Eaten (%): 100 (09/26/23 1851 : Carolina Bragg RN) Nutrition Risk: Low Malnutrition Assessment: Patient at risk for malnutrition according to hospital criteria, but does not meet the clinical characteristics per the Academy of Nutrition and Dietetics, and the [place] Society of Enteral and Parenteral Nutrition to [...] compliance w/ MNT Contact the dietitian via [employer] chat 8A-4P Saturday through Saturday or call extension [phone]. For s & hols, the dietitian can be reached via pager [phone] from 9A-3P. Unable to respond to [employer] messages on Saturday & .[facility]06-28-2024 Note Attestation signed by Heidy Dee MD [...] Progress Note - 09/27/2023 10:26 AM; Room: 318/3184- Admission: 09/26/2023 4:35 PM; Length of stay: 1 days THE HOSPITALIST TEAM PREFERS TO USE [employer] CHAT FOR COMMUNICATION 7AM-7PM. IF I DO NOT RESPOND WITHIN 15 MINUTES, PLEASE PAGE ME/CALL THROUGH THE AND RESCUE FIRE FIGHTER CRASH FIRE. FROM 7PM-7AM, PLEASE PAGE [phone](COVR) Code Status: Full Code Barriers to Discharge: [...] disease, 3rd degree heart block (s/p BiV SENIOR BIOINFORMATICS SCIENTIST-D) that presented to OSH w/ c/o chest pain that radiated to left arm and jaw. Pain was described as centrally-located and pressure-like, and unrelieved by Nitroglycerin x3. Patient started on nitroglycerin drip which provided relief. Initial tropin was unremarkable, but repeat was elevated (2962). He was started on heparin and transferred to [facility]. Today, patient is examined at [...] Principal Problem: NSTEMI (non-ST elevated myocardial infarction) ([facility]) Assessment and Plan #NSTEMI - Supplemental oxygen NC - DAPT (aspirin 81 mg, daily; and Plavix 75 mg, daily) - Metoprolol Succinate XL (150 mg, daily) - Rosuvastatin (40 mg, nightly) #HFrEF - Echo pending #CAD - Angiogram planned today #HTN #Diabetes - Insulin sliding scale - Goal blood sugar 140-180 #Hx bradycardia - s/p SENIOR BIOINFORMATICS SCIENTIST-D Wounds: Wound 09/26/23 Other (comment) Toe [...] 81 mg, oral, Daily (more content not included)...[facility]06-10-2024 NoteBELLEVUE CLINIC Cardiology Clinic Note Chief Complaint: [...] artery disease, Diabetes mellitus (CMS/[facility]), Hyperlipidemia, Hypertension, PVD (peripheral vascular disease) ([facility]), and Third degree heart block ([facility]). Surgical History He has a past [...] PSYCH: appropriate mood, affect, and judgement. Investigations: Echocardiogram-[facility] Name: LANI LIZAMA Study Date: 01/25/2023 12:56 PM B/P: 138 mmHg/71 mmHg HR: Date of : 1950 Location: [facility] Height: 67 in. Age: 72 year(s) Patient Room : 3141 Weight: 171 lb. Gender: Male Patient Status: InPt BSA: 1.89 m2 Indication: Chest Pain Examination: Echocardiogram (Complete), Lumason Contrast Image Quality: Poor Patient Consent: Procedure explained to patient s p @ c 3 Conclusions Left Ventricle: The left ventricle is normal size. Global left connie (more content not included)...[facility]01-30-2024 Evaluation note* Encounter Date Diagnosis Assessment Notes Treatment Notes Treatment Clinical Notes Apr, Chronic HFrEF (heart failure with reduced ejection fraction) (ICD-10 - I50.22) [employer] Other 12-12-2023 Evaluation note* Encounter Date Diagnosis [...] age/comorbidities 2. Blood glucose levels according to [employer] cgm download 02/27/2023- 023: Average glucose 134. [...] PAP-Jardiance was denied, pt given information on [facility] diabetes discount program instructed to apply order [...] hypertension material was printed on diony. Mar, MCC current use of insulin (ICD-10 - Z79.4) Mar, Hyperlipidemia (ICD-10 - E78.5) High cholesterol material was printed 05/2022 ldl 69- on statin. Mar, BMI 27.0-27.9,adult (ICD-10 - Z68.27) Eating healthy: tips to make it easier material was printed [employer] Other 2023 Evaluation note* Encounter Date Diagnosis Assessment Notes Treatment Notes Treatment Clinical Notes Jan, Chronic HFrEF (heart failure with reduced ejection fraction) (ICD-10 - I50.22) [employer] Other 10-09-2023 Evaluation note* Encounter Date Diagnosis [...] Continue statins. Monitor LFTs and lipid profile. [employer] Other 10-06-2023 Evaluation note* Encounter Date Diagnosis Assessment Notes Treatment Notes Treatment Clinical Notes Dec, Ground glass opacity present on imaging of lung (ICD-10 - R91.8) CT: RUL, RML - 12/2022Dec, Pulmonary nodule (ICD-10 - R91.1) CT: 7mm RML nodule - 12/2022 [employer] Other 10-03-2023 Evaluation note* Encounter Date Diagnosis Assessment Notes Treatment Notes Treatment Clinical Notes Dec, Stage 3b chronic kidney disease (ICD-10 - N18.32) [employer] Other 10-02-2023 Evaluation note* Encounter Date Diagnosis [...] risk for cerebrovascular and cardiovascular disease. Dec, MCC current use of insulin (ICD-10 - Z79.4) [...] be contributing - must discuss w/ Cardiology [employer] Other 07-03-2023 Evaluation note* Encounter Date Diagnosis Assessment Notes Treatment Notes Treatment Clinical Notes Sep, ASHD (arteriosclerotic heart disease) (ICD-10 - I25.10) [employer] Other 06-21-2023 Evaluation note* Encounter Date Diagnosis Assessment Notes Treatment Notes Treatment Clinical Notes Aug, ASHD (arteriosclerotic heart disease) (ICD-10 - I25.10) [employer] Other 06-02-2023 Evaluation note* Encounter Date Diagnosis [...] inserts to prevent callus formation.Fall precautions. 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 Advised low phosphorus diet. [employer] Other 03-30-2023 Evaluation note* Encounter Date Diagnosis [...] reviewed at the office visit. 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 Blood glucose levels stable. According to [employer] cgm download 06/13/2022- 3: Average glucose 190. [...] hypertension material was printed on diony. May, MCC current use of insulin (ICD-10 - Z79.4) May, Hyperlipidemia (ICD-10 - E78.5) High cholesterol material was printed 05/2022 ldl 69- on statin. May, BMI 27.0-27.9,adult (ICD-10 - Z68.27) Eating healthy: tips to make it easier material was printed [employer] Other 02-25-2023 Evaluation note* Encounter Date Diagnosis Assessment Notes Treatment Notes Treatment Clinical Notes May, Abnormality of lung on CXR (ICD-10 - R91.8) [employer] Other 12-20-2022 Evaluation note* Encounter Date Diagnosis [...] 2. Blood glucose levels stable. According to [employer] cgm download 03/07/2022-03/20/20 22: Average glucose 144. Above 250-0%, >180- 15%, 70-180-85%, <70-0%, <54-0%. CV 24.3%. Reviewed download with pt, no incidence of hypoglcyemia noted. Glucose rise between 12-6pm. D/t current shortage of ozempic, recommend pt reduce dose to 0.5mg once weekly until shipment recieved from [facility], then increase to 1mg once weekly. [...] hypertension material was printed on [employer]ion[employer]. Mar, MCC current use of insulin (ICD-10 - Z79.4) Mar, Hyperlipidemia (ICD-10 - E78.5) High cholesterol material was printed 06/2021 ldl 48- on statin. Mar, BMI 26.0-26.9,adult (ICD-10 - Z68.26) Eating healthy: tips to make it easier material was printed 9 pound weight loss from last visit, continue with weight loss efforts [employer] [facility] [employer] Other 11-10-2022 Evaluation note* Encounter Date Diagnosis Assessment Notes Treatment Notes Treatment Clinical Notes Jan, Diabetes mellitus with chronic kidney disease (ICD-10 - E11.22) [facility] [employer] Other 10-19-2022 Discharge summary Author Gagan Shahid [facility] January 17, 2022 3:02pm Note Date/Time January 17, 2022 3 :02pm [facility] [address] [place] [address] Discharge Summary Signed Patient: Lani Lizama MR#: [id number] : 1950 Acct:[id number] Age/Sex: 71 / M Adm Date: 2 Loc: Room: [address] [place] [address]: Gagan Shahid DO Copies to: [...] thought this to be indigestion/GERD in the consumer relations complaint clerk hours howeverthis progressively worsened prompting his presentation [...] consulted for management of non-ST segment elevation OR. Cardiac catheterization was undergone on 01/16/2022 showing [...] levels as before. DISCHARGE INSTRUCTIONS FOR CARDIAC WEB USER EXPERIENCE STRATEGIST PHONE NUMBER OF YOUR PHYSICIAN: [phone] PROCEDURE: Heart Cath The following instructions have [...] cold, numb, blue or white, call the finisher polisher immediately. 4. ACTIVITY: You are advised to [...] instructions on the bottle. [facility] is not responsible for incorrect [...] signed by Gagan Shahid DO> 01/17/22 1502 [facility] Work Phone: [phone]) 784-375710-19-2022 Progress note Author Luis Alfredo Borges [facility] January 17, 2022 11:47am Note Date/Time January 17, 2022 1 1:47am [facility] [address] [place] [address] Cardiology Progress Note Signed Patient: Lani Lizama MR#: [id number] : 1950 Acct:[id number] Age/Sex: 71 / M Adm Date: 2 Loc: Room: [address] [place] [address] Type: ADM IN Attending Dr: Gagan Shahid [...] is also notable worsening of the patient's modoc occlusive coronaryheart disease particularly in the microcirculation [...] daily 3. Patient does have a primary finisher polisher near his home in [place]. We willschedule him 1 follow-up visit in [facility] for left wrist check and also for counseling and reinforcement/referral to phase 2 monitored cardiac rehabilitation which the patient desires to perform in [place]. 4. Instructed the patient that he can [...] by Luis Alfredo Borges MD> 01/17/22 1147 [facility] Work Phone: [phone] 530-229210-18-2022 Progress note Author Gagan Shahid [facility] January 16, 2022 4:09pm Note Date/Time January 16, 2022 4 :09pm [facility] [address] [place] [address] Hospitalist Progress Note Signed Patient: Lani Lizama MR#: [id number] : 1950 Acct:[id number] Age/Sex: 71 / M Adm Date: 2 Loc: Room: [address] [place] [address] Type: ADM IN Attending Dr: Gagan Shahid [...] Dose Route Start Last Admin Trade Name Rodrigoq PRN Reason Stop Dose Admin Acetaminophen 650 [...] Gagan Shahid DO> 01/16/22 1609 [facility] Work Phone: [phone] 377-740110-18-[address] [facility] Consult note Author Luis Alfredo Borges [facility] January 16, 2022 10:24am Note Date/Time January 16, 2022 1 0:24am [facility] [address] [place] [address] Cardiology Consult Note Signed Patient: Lani Lizama MR#: [id number] : 1950 Acct:[id number] Age/Sex: 71 / M Adm Date: 2 Loc: Room: [address] [place] [address] Type: ADM IN Attending Dr: Gagan Shahid [...] of PCI done here [facility] per Dr. Saldaña in May [...] he activated EMS and was taken to [facility] emergency department. There the patient was treated [...] Lymph # (Auto) 1.0 1.6 (1.00-4.8) x10E3/uL [place] # (Auto) 0.4 0.8 (0.0-0.8) x10E3/uL Eos [...] nonspecific abnormality, ST segment, and/or T wave OR, pacemaker, normal Normal tracing: no change compared [...] by Luis Alfredo Borges MD> 01/16/22 1024 [facility] Work Phone: 1(150) 766-348610-17-2022 History and physical note Author Gagan Shahid [facility] January 15, 2022 6:56pm Note Date/Time January 15, 2022 6 :02pm [facility] [address] [place] [address] Hospitalist H&P Signed Patient: Lani Lizama MR#: [id number] : 1950 Acct:[id number] Age/Sex: 71 / M Adm Date: 2 Loc: Room: [address] [place] [address] Type: ADM IN Attending Dr: Gagan Shahid [...] evaluation he was transferredto [facility] for further management and cardiology [...] % (Auto) 13.8 % (.) 01/15/22 15:00 [place] % (Auto) 6.1 % (.) 01/15/22 15:00 Eos % (Auto) 0.9 % (.) 01/15/22 15:00 Baso % (Auto) 0.5 % (.) 01/15/22 15:00 Neut # (Auto) 5.6 x10E3/uL (1.8-7.7) 01/15/22 15:00 Lymph # (Auto) 1.0 x10E3/uL (1.00-4.8) 01/15/22 15:00 [place] # (Auto) 0.4 x10E3/uL (0.0-0.8) 01/15/22 15:00 [...] 18 Signed By: <Electronically signed by Gagan Sahhid DO> 01/15/22 5468 [facility] Work Phone: 1(753) 104-536909-19-2022 Evaluation note* Encounter Date Diagnosis Assessment Notes [...] Blood glucose levels above improved. According to [employer] cgm download 12/05/2021- 2: Average glucose 119. [...] hypertension material was printed on [employer]. Nov, MCC current use of insulin (ICD-10 - Z79.4) Nov, Hyperlipidemia (ICD-10 - E78.5) High cholesterol material was printed 06/2021 ldl 48- on statin. Nov, BMI 27.0-27.9,adult (ICD-10 - Z68.27) Eating healthy: tips to make it easier material was printed 22 pound weight loss from last visit, continue with weight loss efforts [employer] Other 07-22-2022 Miscellaneous Notes* Telephone Encounter - Vee Day - 10/20/2021 9:42 AM EDT New CBC order. Vee Day [facility] in [facility]Day[facility]-18-[facility] Evaluation note* Encounter Date Diagnosis Assessment Notes [...] Blood glucose levels above improved. According to [employer] cgm download 07/04/2021-07/17/2021 : Average glucose 146. [...] material was printed on [employer]. 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 If symptomatic i.e. light headed notify sooner [employer] Other 03-21-2022 Evaluation note* Encounter Date Diagnosis Assessment Notes Treatment Notes Treatment Clinical Notes May, Gastro-esophageal reflux disease with esophagitis, without bleeding (ICD-10 - K21.00) [employer] Other 03-08-2022 Evaluation note* Encounter Date Diagnosis [...] His MBD parameters are within the goal. [employer] Other 02-21-2022 Evaluation note* Encounter Date Diagnosis Assessment Notes Treatment Notes Treatment Clinical Notes May, Diabetes mellitus with chronic kidney disease (ICD-10 - E11.22) [employer] Other 01-10-2022 Evaluation note* Encounter Date Diagnosis Assessment Notes Treatment Notes Treatment Clinical Notes Apr, Type 2 diabetes mellitus with hyperglycemia (ICD-10 - E11.65) [employer] Other 01-10-2022 Evaluation note* Encounter Date Diagnosis [...] was also given rx assist paperwork [place] [facility] [place] not qualify for BI/jardiance. Ozempic will increase to 1mg once weekly. Apr, Hyperlipidemia (ICD-10 - E78.5) High cholesterol material was printed 07/2020 ldl 64 trig 207- on statin. Apr, HTN (hypertension) (ICD-10 - I10) About hypertension material was printed on [employer]. 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 [employer] Other 10-05-2021 Evaluation note* Encounter Date Diagnosis [...] above target with increased variability. According to [employer] cgm download 12/07/2020-01/03/2021: Average glucose 135. Above [...] material was printed on [employer]. 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 Notified finisher polisher Dr. Velazquez. Pt has apt on Saturday next week. [employer] Other Chivy complaint+Reason for visit Narrative* Chief Complaint 4 month follow up Reason for Visit BMI 28.0-28.9,adult Dietary counseling and surveillance HTN (hypertension) Chronic HFrEF (heart failure with reduced ejection fraction) Chronic kidney disease [id number] HTN (hypertension) Hypercholesterolemia Ischemic cardiomyopathy Pulmonary nodule Type 2 diabetes mellitus with hyperglycemia [facility] Work Phone: Evaluation + Plan note No data available for this section [facility] [place] Evaluation + Plan note Future Appointments Appointment Date:08/04/2024 10:00:00 AM Scheduled Provider: Location:[facility] Urology Surgical Services Appointment Type:Urology FT Diagnostic Tests Pending * Urine Cytology ([facility]) 08/03/24 [facility] evaluxccvr noteNo InformationNortHoly [facility] [employer] Other Evaludwjum note* Diagnosis Monoclonal gammopathy- Primary Monoclonal paraproteinemia [facility] Onset Date Resolution Status Non-ST elevation myocardial infarction (NSTEMI), initial care episode acute [facility] Work Phone: Evaluvnjlx noteNo assessment information available [facility] Work Phone: evalubcarg note* Diagnosis Onset Date Resolution Status BMI 26.0-26.9,adult acute Dietary counseling and surveillance acute DM2 (diabetes mellitus, type 2) acute HLD (hyperlipidemia) acute HTN (hypertension) acute [facility] Work Phone: Evaluation note* Diagnosis Onset Date Resolution Status BMI 26.0-26.9,adult acute Dietary counseling and surveillance acute DM2 (diabetes mellitus, type 2) acute HLD (hyperlipidemia) acute HTN (hypertension) acute Chronic HFrEF (heart failure with reduced ejection fraction) acute CKD (chronic kidney disease) stage 3, GFR 30-59 ml/min acute HLD (hyperlipidemia) acute [id number] acute Secondary hyperparathyroidism acute Type 2 diabetes 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 acute [facility] Work Phone: Evaluation note* Diagnosis Onset Date Resolution Status Dietary counseling and surveillance acute HTN (hypertension) acute Chronic HFrEF (heart failure with reduced ejection fraction) acute CKD (chronic kidney disease) stage 3, GFR 30-59 ml/min acute [id number] acute Secondary hyperparathyroidism acute Type 2 diabetes 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 acute Chronic HFrEF (heart failure with reduced ejection fraction) acute Chronic kidney disease acute HTN (hypertension) acute Hypercholesterolemia acute Ischemic cardiomyopathy acut e Pulmonary nodule acute Type 2 diabetes mellitus with hyperglycemia acute Medicare annual wellness visit, subsequent noneactive Screening PSA (prostate specific antigen) noneactive [facility] Work Phone: evaluation note* Diagnosis Onset [...] counseling and surveillance acute HTN (hypertension) acute [facility] Work Phone: Evaluation note* Diagnosis Onset Date Resolution Status BMI 28.0-28.9,adult acute Dietary counseling and surveillance acute HTN (hypertension) acute Chronic HFrEF (heart failure with reduced ejection fraction) acute Chronic kidney disease acute [id number] acute HTN (hypertension) acute Hypercholesterolemia acute Ischemic cardiomyopathy acut e Pulmonary nodule acute Type 2 diabetes mellitus with hyperglycemia acute [facility] Work Phone: Evaluation note* Diagnosis [...] disease) stage 3, GFR 30-59 ml/min acute [id number] acute Secondary hyperparathyroidism acute Type 2 diabetes 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 acute [facility] Work Phone: Evaluation note* Diagnosis Onset Date Resolution Status Chronic HFrEF (heart failure with reduced ejection fraction) acute Chronic kidney disease acute HTN (hypertension) acute Hypercholesterolemia acute Ischemic cardiomyopathy acut e Pulmonary nodule acute Type 2 diabetes mellitus with hyperglycemia acute Chronic HFrEF (heart failure with reduced ejection fraction) acute CKD (chronic kidney disease) stage 3, GFR 30-59 ml/min acute [id number] acute Secondary hyperparathyroidism acute Type 2 diabetes 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 acute BMI 27.0-27.9,adult acute Dietary counseling and surveillance acute HTN (hypertension) acute [facility] Work Phone: Evaluation note* Diagnosis Xerosis cutis- Primary Other specified disease of sebaceous glands Diabetes 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, without long-term current use of insulin (CMS/HCC) Pain due to onychomycosis of toenails of both feet documented in this encounter [facility] HealthcareEvaluation note* Diagnosis Diabetes 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, without long-term current use of insulin (CMS/HCC)- Primary Pain due to onychomycosis of toenails of both feet [facility] - [facility] Type Description Date [...] 11-25-16 Hospitalization History HEART STENT PLACED 03-20 [facility] Other History general Narrative - ReportedNort[facility] Other History general Narrative - Reported* Type [...] 11-25-16 Hospitalization History HEART STENT PLACED 03-20 [employer] Other Hisuthh general Narrative - Reported* Type Description Date [...] 11-25-16 Hospitalization History HEART STENT PLACED 03-20 [employer] Other Histzff general Narrative - Reported* Type Description Date [...] 11-25-16 Hospitalization History HEART STENT PLACED 03-20 [employer] Other History general Narrative - Reported* Type [...] STENT PLACED 03-20 Hospitalization History SEE ABOVE [employer] Other History general Narrative - ReportedNortRadioFrame Other History general Narrative - Reported* Type [...] STENT PLACED 03-20 Hospitalization History SEE ABOVE [employer] Other History general Narrative - Reported* Type [...] STENT PLACED 03-20 Hospitalization History SEE ABOVE [employer] Other History general Narrative - Reported* Type [...] STENT PLACED 03-20 Hospitalization History SEE ABOVE [employer] Other History general Narrative - Reported* Type [...] History GGO and Pulmonary nodules Medical History OR 01/21 Medical History Defibrilator 02/21 Surgical History [...] 03-20 Hospitalization History SEE ABOVE Hospitalization History OR 01/21 [employer] Other Hospital Discharge instructions No data available for this section General [facility] Discharge instructions Additional Instructions Monitor glucose levels as before. DISCHARGE INSTRUCTIONS FOR CARDIAC WEB USER EXPERIENCE STRATEGIST PHONE NUMBER OF YOUR PHYSICIAN: [phone] PROCEDURE: Heart Cath The following instructions have [...] cold, numb, blue or white, call the finisher polisher immediately. 4. ACTIVITY: You are advised to [...] instructions on the bottle. [facility] is not responsible for incorrect prescription information provided by the patient during their visit. Do not stop your medications without consulting your health care provider. Please take the list with you to your next doctor's appointment. [facility] Work Phone: Hospital Discharge instructionsAmbulatory Orders* Referral to Podiatry Location: None Selected [facility] Work Phone: Hospital Discharge instructionsAmbulatory Orders* Referral to Urology Time Frame: 07/14/24, Location: None Selected [facility] Work Phone: Progress note No data available for this section [facility] [place] Summary Purpose Family History No Family History [...] stage 3, GFR 30-59 ml/min HLD (hyperlipidemia) [id number] Secondary hyperparathyroidism Type 2 diabetes mellitus with diabetic chronic kidney disease 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 6 month follow up MEDICARE WELLNESS Reason for Visit Dietary counseling a nd surveillance HTN (hypertension) Chronic HFrEF (heart failure with reduced ejection fraction) CKD (chronic kidney disease) stage 3, GFR 30-59 ml/min [id number] Secondary hyperparathyroidism Type 2 diabetes mellitus with [...] kidney disease) stage 3, GFR 30-59 ml/min [id number] Secondary hyperparathyroidism Type 2 diabetes mellitus with [...] kidney disease) stage 3, GFR 30-59 ml/min [id number] Secondary hyperparathyroidism Type 2 diabetes mellitus with diabetic chronic kidney disease BMI 27.0-27.9,adult Dietary counseling and surveillance HTN (hypertension) Chief Complaint Admit Date Amb Documentation February 18, 2024 9:11am CC Adult Risk Stratification February 172023 10:26am IP f/u [facility] chest pain-HIGH RISK Nov 2023 [...] 2024 9 :21am Dietary counseling and surveillance [facility] 2024 9:21am HTN (hypertension) April 30, 2024 [...] 2024 9 :21am Dietary counseling and surveillance [facility] 2024 9:21am HTN (hypertension) April 30, 2024 [...] 2024 9 :21am Dietary counseling and surveillance [facility] 2024 9:21am HTN (hypertension) April 30, [...] and content) DATE CREATED AUTHOR 11/29/2018 [facility] DATE CREATED AUTHOR AUTHOR'S ORGANIZ ATION 10/25/2021 [facility] DATE CREATED AUTHOR AUTHOR'S ORGANIZ ATION 08/13/2022 [facility] DATE CREATED AUTHOR AUTHOR'S ORGANIZ ATION 06/20/2024 [facility] DATE CREATED AUTHOR AUTHOR'S ORGANIZ ATION 07/11/2024 [facility] DATE CREATED AUTHOR AUTHOR'S ORGANIZ ATION 08/09/2024 [facility] DATE CREATED AUTHOR AUTHOR'S ORGANIZ ATION 08/12/2024 [facility] DATE CREATED AUTHOR AUTHOR'S ORGANIZ ATION 08/26/2024 [facility] REASON FOR VISIT (unrecogniz ed section [...] Provider Active Start: July 07, 2024 Kingsley Woods MD Attending Provider Active Start : July 07, 2024 Team Status: Inactive Member Role Status Dates Kingsley Woods MD Attending Provider Active Start [...] Provider Active Start: December 30, 2023 Kingsley Woods MD Attending Provider Active Start : December 30, 2023 Team Status: Inactive Member Role Status Dates Harley Crespo DO Primary Care Provider Active Start: January 07, 2024 End: January 07, 2024 Kingsley Woods MD Attending Provider Active Start : January 07, 2024 End: January 07, 2024 Team Status: Active Member Role Status Dates Harley Crespo DO Primary Care Provider Active Start: September 26, 2023 Luis Alfredo Reyez Attending Provider Active Start: September 26, 2023 Team Status: Active Member Role Status Dates Hraley Crespo DO Primary Care Provide r, Attending [...] July 02, 2023 End: July 02, 2023 Oleomargarine Maker Relationship Specialty Start Date End Date Harley Crespo DO [address] [place] [address] PCP - General Internal Medicine 07/18/18 Team Status: Inactive Member Role Status Dates Harley Crespo DO Primary Care Provider Active Gagan Shahid DO Admit Provider, Attending Provider Active Team Status: Active Member Role Status Dates Harley Crespo DO Primary Care Provider Active Ryan Garrett APRN PRICE CHANGER-C Active Valerie Gallegos PA-C Active Arlen Kwong APRN Attending Provider Active Team Status: Inactive Member Role Status Dates Arlen Kwong APRN Attending Provider Active Start: March 12, 2023 End: March 12, 2023 Team Status: Inactive Member Role Status Dates Harley Crespo DO Primary Care Provider Active Start: March 12, 2023 End: March 12, 2023 Ryan Garrett APRN PRICE CHANGER-C Active Sta rt: March 12, 2023 End: March 12, 2023 Valerie Gallegos PA-C Active St art: March 12, 2023 End: March 12, 2023 Arlen Kwong APRN Attending Provider Active Start: March 12, 2023 End: March 12, 2023 Team Status: Inactive Member Role Status Harley Crespo DO Attending Provider Active Sta rt: May 03, 2023 End: May 03, 2023 Team Status: Inactive Member Role Status Dates Harley Crespo DO Primary Care Provider Active Start: January 23, 2024 End: January 23, 2024 Arlen Kwong APRN Attending Provider Active Start: January 23, 2024 End: January 23, 2024 Oleomargarine Maker Relationship Specialty Start Date End Date Harley Crespo MD [address] [place] [address] PCP - General Internal Medicine 11/07/23 Oleomargarine Maker Relationship Specialty Start Date End Date Harley Crespo MD [address] [place] [address] PCP - General Internal Medicine 11/07/23 Oleomargarine Maker Relationship Specialty Start Date End Date Harley Crespo MD [address] [place] [id number] PCP - General Internal Medicine 11/07/23 Source Comments (unrecognize d section and content) In the event this informatio n is protected by the Federal Confidentiality of Alcohol and Drug Abuse Patient Records regulations: The Federal rules restrict any use of the information to criminally investigate or prosecute any alcohol or drug abuse patient.[facility] Goals (unrecognized section and content) [...] BE BASED ON THE PRIMARY CLINICAL RECORDS. [employer] [facility]. provides no warranty or guarantee of the accuracy or completeness of information in this document.
--- OUTSIDE RECORDS SUMMARY | 2024-08-27 07:22 | XMS_ITS | Encounter Summary ---
Author Organization [facility] Address [address] [place] [address] Phone Care Team Providers Care Credit Assistant Name Role Phone Unavailable Primary Care Provider Unavailabl e Encounter Details Date Type Department Care Team (Late st Contact Info) Description 01/16/2022 Orders Only [facility] [address] [place] [address] Conversion, Onbase Social History Tobacco Use Types Packs/Day Years Used Date Smoking Tobacco: Never Assessed Sex and Gender Information Value Date Recorded Sex Assigned at Not on file Legal Sex Male 8:26 PM EST Gender Identity Not on file Sexual Orientation Not on file documented as of this encounter Plan of Treatment Scheduled Orders Name Type Priority Associated Diagnoses Orde r Schedule OUTSIDE LAB SCAN Lab Ordered: 01/16/2022 documented as of this encounter Visit Diagnoses Not on filedocumented in this encounter
--- OUTSIDE RECORDS SUMMARY | 2024-08-27 07:22 | XMS_ITS | Clinical Summary ---
Author Organization [facility] Address [address] [place] [address] Phone Care Team Providers Care Nutrition Helper Name Role Phone Unavailable Primary Care Provider Unavailabl e Social History Tobacco Use Types Packs/Day Years Used Date Smoking Tobacco: Never Assessed Sex and Gender Information Value Date Recorded Sex Assigned at Not on file Legal Sex Male 8:26 PM EST Gender Identity Not on file Sexual Orientation Not on file Plan of Treatment Health Maintenance Due Date Last Done Comments CT Colonography 1950 Colonoscopy 1950 Colorectal Cancer Screening 1950 FIT-DNA (Cologuard) 1950 FIT 1950 Lipid Panel 1950 Sigmoidoscopy 1950 Yearly Adult Physical 1950 Hepatitis C Screening 11/07/1969 DTaP/Tdap/Td Vaccines (1 - Tdap) 11/07/1973 Pneumococcal Vaccine (1 of 1 - PCV) 11/07/2001 Zoster Vaccines (1 of 2) 11/07/2001 COVID-19 Vaccine (1 - 2023-2 5 season) 2023 Influenza Vaccine (Season Ended) 2024 RSV High Risk: (Elderly (60+ ) or Population) (1 - 1-dose 75+ series) 11/07/2026 HIB Vaccines Aged Out No longer eligi ble based on patient's age to complete this topic HPV Vaccines Aged Out No longer eligi ble based on patient's age to complete this topic Hepatitis A Vaccines Aged Out No long er eligible based on patient's age to complete this topic Hepatitis B Vaccines Aged Out No long er eligible based on patient's age to complete this topic IPV Vaccines Aged Out No longer eligi ble based on patient's age to complete this topic Meningococcal Vaccine Aged Out No aldo ginny eligible based on patient's age to complete this topic Rotavirus Vaccines Aged Out No longer eligible based on patient's age to complete this topic
--- OUTSIDE RECORDS SUMMARY | 2024-08-27 07:22 | XMS_ITS | Clinical Summary ---
Author Organization [facility] Address [address] [place] [id number] Care Team Providers Care Sausage Linker Name Role Phone Harley Goodman DO Primary Care Provider [phone] Allergies Active Allergy Reactions Criticality Noted Date Comments Nkda [Other] Unknown 07/28/2018 Received name: Nkda Medications lovastatin (MEVACOR) 20 mg tablet Take 20 mg by mouth daily at bedtime. Active nitroglycerin sublingual (NITROSTAT) 0.4 mg SL tablet Dissolve 0.4 mg under the tongue every 5 minutes as needed. Active ALPRAZolam (XANAX) 0.5 mg tablet Take 0.5 mg by mouth at bedtime as needed. Active triamcinolone (KENALOG) 0.025 % ointment Apply to affected area twice daily. Active insulin NPH human (HUMULIN N NPH INSULIN KWIKPEN) 100 unit/mL (3 mL) inpn injection pen Inject subcutaneousl y. Active lisinopril (ZESTRIL, PRINIVIL) 20 mg tablet Take 20 mg by mouth once daily. Active clopidogrel (PLAVIX) 75 mg tablet Take 75 mg by mouth once daily. Active loratadine 10 mg cap Take by mouth. Active carvedilol (COREG) 25 mg tablet Take 25 mg by mouth twice daily with meals. Active isosorbide mononitrate ER (IMDUR) 30 mg 24 hr tablet Take 60 mg by mouth once daily. Active pioglitazone (ACTOS) 15 mg tablet 9 Active multivit-mineral s/folic acid (ONE-A-DAY MEN VITACRAVES ORAL) Take by mouth. Active ergocalciferol, vitamin D2, (VITAMIN D2 ORAL) Take by mouth. Active VITAMIN B COMPLEX ORAL Take by mouth every other day. Active amLODIPine (NORVASC) 5 mg tablet Take 5 mg by mouth once daily. 3 9 Active Cholecalciferol, Vitamin D3, 25 mcg (1,000 unit) cap Take 1,000 Units by mouth. Active empagliflozin (JARDIANCE) 25 mg tablet q 24 HR. Active famotidine (PEPCID) 40 mg tablet TAKE 1 2 (ONE HALF) TABLET BY MOUTH TWICE DAILY 1 Active aspirin, enteric coated (ASPIRIN, ENTERIC COATED) 81 mg EC tablet Aspirin Active 81 MG PO Daily June 22, 2020 4:21am 1 Active Active Problems Problem Noted Date Diagnosed Date Monoclonal gammopathy 07/28/2018 Immunizations Immunization Administration Dates Next Due influenza (HD-IIV3) vaccine, age 65+ yr, high dose, trivalent, PF (FLUZONE HIGH-DOSE) 01/16/2017 influenza (IIV3) vaccine, tr ivalent (AFLURIA, FLULAVAL, FLUVIRIN, FLUZONE) 01/23/2012,12/13/2010 influenza (IIV4) vaccine, ag e 6 mo - 64 yr, quadrivalent, PF (AFLURIA, FLUARIX, FLULAVAL, FLUZONE) 11/30/2016 influenza (aIIV3) vaccine, a ge 65+ yr, trivalent, PF (FLUAD) 01/17/2018 influenza vaccine, whole virus 01/19/2008 novel influenza ([id number]) vaccine, PF 01/27/2009 pneumococcal conjugate (PCV1 3) vaccine, 13 valent (PREVNAR 13) 11/14/2016 pneumococcal polysaccharide (PPV23) vaccine, 23 valent (PNEUMOVAX 23) 01/17/2018,04/02/2016 Family History Medical History Relation Comments Cancer Brother Brain cancer Cancer Father Relation Status Comments Brother brain tumor Father stomach cancer Social History Tobacco Use Types Packs/Day Years Used Date Smoking Tobacco: Former Smokeless Tobacco: Never Alcohol Use Standard Drinks/Week Comments Not Currently 0 (1 standard drink = 0.6 oz pur e alcohol) PHQ-2 Answer Date Recorded PHQ-2 score 0 04/25/2020 Area Deprivation Index Answer Date Kyle rded National Score (1-100), lower number is lower ri sk Not on file 03/08/2020 State Score (1-10), lower number is lower risk N ot on file 03/08/2020 Data from: https://www.neighborhoodatlas.medicine.[facility].edu/. Last address used for calculation Not on file 03/08/2020 Sex and Gender Information Value Date Recorded Sex Assigned at Not on file Legal Sex Male 11:54 AM EDT Gender Identity Not on file Sexual Orientation Not on file Last Filed Vital Signs Vital Sign Reading Time Taken Comments Blood Pressure 122/51 10/25/2020 10:33 AM EDT recheck Pulse 42 10/25/2020 10:33 AM EDT Temperature 36.3 C (97.3 F) 10/25/2020 10:31 AM EDT Respiratory Rate 16 10/25/2020 10:3 1 AM EDT Oxygen Saturation 97% 10/25/2020 10: 31 AM EDT Inhaled Oxygen Concentration - - Weight 93.4 kg (205 lb 12.8 oz) 021 10:31 AM EDT Height 168 cm (5' 6.14 ) 10/25/2020 10: 31 AM EDT Body Mass Index 33.07 10/25/2020 10:31 AM EDT Plan of Treatment Health Maintenance Due Date Last Done Comments Abdominal Aortic Aneurysm Screening 1950 Anxiety Screening 11/07/1969 Depression Screening 11/07/1969 Hepatitis C Screening 11/07/1969 DTaP,Tdap,Td Vaccine (1 - Tdap) 11/07/1970 Lipid Screening 11/07/1986 CT Colonography 11/07/1996 Cologuard (FIT-DNA) 11/07/1996 Colonoscopy 11/07/1996 Colorectal Cancer Screening 11/07/1996 Fecal Occult Blood 11/07/1996 Sigmoidoscopy 11/07/1996 Shingrix Vaccine (1 of 2) 11/07/2001 Diabetes Screening 10/26/2023 10/25/2020, 0 04/25/2020, 10/26/2019, Additional history exists Covid-19 Vaccine (3 - 2023-2 5 season) 2023 06/21/2020, 05/30/2020 Advance Directive Discussion 04/01/2024 Influenza Vaccine (Season Ended) 2024 01/17/2018, 01/16/2017, 11/30/2016, Additional history exists RSV Vaccine (1 - 1-dose 75+ series) 11/07/2026 Pneumococcal Vaccine: 50+ Completed 2017, 11/14/2016, 04/02/2016 Procedures Procedure Name Priority Date/Time Associated Diagnosis Comments COMPREHENSIVE METABOLIC PANEL Routine 10/25/2020 10:04 AM EDT Monoclonal gammopathy from Last 3 Months or Most Recently Relevant to Health Maintenance Results * (ABNORMAL) COMP METABOLIC PANEL (10/25/2020 10:04 AM EDT) Protein, Total 6.6 6.3 - 8.0 g/dL 10/25/2020 10:27 AM EDT [facility] Albumin 4.3 3.9 - 4.9 g/dL 10/25/2020 10:27 AM EDT [facility] Calcium 9.1 8.5 - 10.2 mg/dL 10/25/2020 10:27 AM EDT [facility] Bilirubin, Total 0.7 0.2 - 1.3 mg/dL 10/25/2020 10:27 AM EDT [facility] Alkaline Phosphatase 98 38 - 113 U/L 10/25/2020 10:27 AM EDT [facility] AST 19 14 - 40 U/L 10/25/2020 10:27 AM EDT [facility] Glucose 191(H) 74 - 99 mg/dL 10/25/2020 10:27 AM EDT [facility] Comment: The [place] [employer] (ADA) provides guidance for cutoff values for fasting glucose and random glucose. The ADA defines fasting as no caloric intake for at least 8 hours. Fasting plasma glucose results between 100 to 125 mg/dL indicate increased risk for diabetes (prediabetes). Fasting plasma glucose results greater than or equal to 126 mg/dL meet the criteria for diagnosis of diabetes. In the absence of unequivocal hyperglycemia, results should be confirmed by repeat testing. In a patient with classic symptoms of hyperglycemia or hyperglycemic crisis, random plasma glucose results greater than or equal to 200 mg/dL meet the criteria for diagnosis of diabetes. Reference: Standards of Medical Care in Diabetes 2016, [place] [employer]. Diabetes Care. 2016.39(Suppl 1). BUN 20 9 - 24 mg/dL 10/25/2020 10:27 AM EDT [facility] Creatinine 1.93(H) 0.73 - 1.22 mg/dL 10/25/2020 10:27 AM EDT [facility] Sodium 139 136 - 144 mmol/L 10/25/2020 10:27 AM EDT [facility] Potassium 4.2 3.7 - 5.1 mmol/L 10/25/2020 10:27 AM EDT [facility] Chloride 106(H) 97 - 105 mmol/L 10/25/2020 10:27 AM EDT [facility] CO2 22 22 - 30 mmol/L 10/25/2020 10:27 AM EDT [facility] Anion Gap 11 9 - 18 mmol/L 10/25/2020 10:27 AM EDT [facility] ALT 16 10 - 54 U/L 10/25/2020 10:27 AM EDT [facility] eGFR- 42 10/25/2020 10:27 AM EDT [facility] eGFR-All Other Races 35 . 10/25/2020 10:27 AM EDT [facility] Comment: eGFR (Estimated GFR) Units of measure: mL/min/1.73 meters squared eGFR is derived from the reexpressed MDRD Study equation using the following parameters: serum creatinine, age, gender and race. The creatinine assay has been calibrated to be traceable to IDMS. An eGFR <60 mL/min/1.73m2 for >3 months is consistent with chronic kidney disease. Refer to KDOQI guidelines for clinical interpretation. In patients with unstable renal function, e.g. those with acute kidney injury, the eGFR may not accurately reflect actual GFR. Blood BLOOD SPECIMEN / Unknown 10/25/2020 10:04 AM EDT 10/25/2020 10:06 AM EDT us Agustin Walker MD LABORATORY Final Result [id number] from Last 3 Months or Most Recently Relevant to Health Maintenance Insurance MEDICARE [facility] MEDICARE SUPPLEMENT Care Teams Sausage Linker Relationship Specialty Start Date End Date Harley Goodman DO [address] [place] [address] PCP - General Internal Medicine 07/18/18
[2024-08-27 07:34] LABS: Bilirubin Urine NEGATIVE (NEGATIVE); Blood Urine LARGE (NEGATIVE); Clarity Urine SL CLOUDY (CLEAR); Color Urine YELLOW (YELLOW); Glucose Urine UA >=1000 mg/dL (NEGATIVE); Ketones Urine NEGATIVE (NEGATIVE); Leukocyte Esterase Urine MODERATE (NEGATIVE); Nitrite Urine NEGATIVE (NEGATIVE); Protein Urine >=300 mg/dL (NEG/TRACE); Specific Gravity Urine 1.025 (1.005-1.025)
== END 2024-08-27 07:17 | disposition home or self-care (01) ==
LOC: LAB 07:18
PROVIDERS: PCP Internal Medicine; Visit Provider Internal Medicine
DX: R35.89 Other polyuria (principal)
CPT/HCPCS: 81003; 87086

== ENCOUNTER 2024-09-21 09:13 | Outpatient (OUT) | payer MEDICARE, OTHER, SELFPAY ==
--- OUTSIDE RECORDS SUMMARY | 2024-09-21 09:18 | XMS_ITS | Referral Summary ---
Author Organization [facility] Address [address] [place] [address] Care Team Providers Care Timber Hand Name Role Phone Harley Goodman DO Primary Care Provider Encounters Date Type Department Care Team Description 09/21/2024 Orders Only [facility] Urology [address] [place] [phone] Last Mcmanus MD Malignant neoplasm of urinary bladder, unspecified site (CMS/HCC) (Primary Dx); Urinary tract infection without hematuria, site unspecified; Other specified disorders of bladder 09/21/2024 Telephone [facility] Urology [address] [place] [address] Serenity De Leon MA 09/18/2024 Orders Only [facility] Pre-Anesthesia Clinic [address] [place] [address] Kb Petersen RN 09/07/2024 [address]ill [place] [address] [place] [address] Criselda Rebollar MA Hypertension, unspecified type 09/02/[address] [address] Criselda Rebollar MA 09/02/2024 Orders Only [facility] Pre-Anesthesia Clinic [address] [place] [address] Kb Petersen RN 08/28/2024 10:05 AM EDT Lab [facility] Outpatient Draw Station [address] [place] [address] Lesion of bladder; Encounter for screening for malignant neoplasm of prostate; Urinary tract infection without hematuria, site unspecified; Other specified disorders of bladder 08/28/2024 - 08/28/2024 11:59 PM EDT Hospital Encounter [facility] Radiology External Films [address] [place] [address] Discharge Disposition: Home or Self Care () 08/28/2024 8:30 AM EDT Office Visit [facility] Urology [address] [place] [address] Last Mcmanus MD Lesion of bladder (Primary Dx); Encounter for screening for malignant neoplasm of prostate; Urinary tract infection without hematuria, site unspecified; Other specified disorders of bladder 08/20/2024 9:45 AM EDT Office Visit [address] [address] Pinky Bishop MD Chronic systolic heart failure (CMS/HCC) (Primary Dx); 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; Primary hypertension; Status post implantation of automatic cardioverter/defibrill ator (AICD); Palpitations 08/14/2024 Orders Only [facility] [address] [place] [address] Kevin Jacobs MD 08/13/2024 11:14 AM EDT - 08/14/2024 6:44 PM EDT Hospital Encounter [facility] [address] [place] [address] Tomas Covington MD Saad, Hani, MD Chest pain (Primary Dx); Hypertension, unspecified type Discharge Disposition: Home or Self Care () 08/13/2024 Travel 08/04/2024 - 08/04/2024 11:59 PM EDT Hospital Encounter [facility] Radiology External Films [address] [place] [address] Bladder tumor Discharge Disposition: Home or Self Care () 08/04/2024 Orders Only [facility] Urology [address] [place] [address] Last Mcmanus MD Bladder tumor 07/16/2024 Orders Only [facility] Cardiology Clinic [address] [place] [address] Mannie Armijo MD 07/16/2024 9:15 AM EDT Ancillary Procedure [facility] Card[facility] [address] [facility] [place] [address] Pre-operative cardiovascular examination, ICD in place from Last 3 Months Allergies No known active allergies Medications ALPRAZolam (Xanax) 0.5 mg tablet Take 1 tablet by mouth in the morning, afternoon, and at bedtime. Active aspirin 81 mg chewable tablet Chew 1 tablet every day by oral route. Active clopidogrel (Plavix) 75 mg tablet Take 1 tablet by mouth in the morning. 8 Active empagliflozin (Jardiance) 10 mg Take 1 tablet every day by oral route. 2 Active insulin detemir (Levemir) 100 unit/mL injection Inject 5 Units under the skin two times daily. Active pantoprazole (ProtoNix) 40 mg EC tablet TAKE 1 TABLET BY MOUTH DAILY ON AN EMPTY STOMACH FOLLOWED BY BREAKFAST 30 MINUTES AFTER 3 Active docusate sodium (Colace) 100 mg capsule Take 100 mg by mouth in the morning. Active isosorbide mononitrate ER (Imdur) 60 mg 24 hr tabletIndicatio ns:Acute on chronic systolic heart failure (CMS/HCC),NSTEM I (non-ST elevated myocardial infarction) (CMS/HCC) Take 1 tablet (60 mg) by mouth 2 times daily. 180 tablet 3 4 Active rosuvastatin (Crestor) 40 mg tabletIndicatio ns:NSTEMI (non-ST elevated myocardial infarction) (CMS/HCC) TAKE 1 TABLET BY MOUTH AT BEDTIME 90 tablet 3 4 Active spironolactone (Aldactone) 25 mg tabletIndicatio ns:NSTEMI (non-ST elevated myocardial infarction) (CMS/HCC) Take 1 tablet (25 mg) by mouth in the morning. 90 tablet 3 4 01/16/20 25 Active nitroglycerin (Nitrostat) 0.4 mg SL tabletIndicatio ns:Chest pain, unspecified type PLACE 1 TABLET UNDER TONGUE EVERY 5 MINS, UP TO 3 DOSES NEEDED FOR CHEST PAIN 90 tablet 2 4 Active cholecalciferol (Vitamin D3) 25 MCG (1000 [...] succinate XL (Toprol-XL) 50 mg 24 hr tabletIndicatio ns:NSTEMI (non-ST elevated myocardial infarction) (CMS/HCC) Take 3 tablets (150 mg) by mouth in the morning for 97 doses. Do not crush or chew. 291 tablet 4 Active ranolazine (Ranexa) 500 mg 12 hr tabletIndicatio ns:NSTEMI (non-ST elevated myocardial infarction) (CMS/HCC) Take 1 tablet (500 mg) by mouth two times daily. Do not crush, chew, or split. 180 tablet 3 4 03/14/20 25 Active thiamine (Vitamin B-1) 250 mg tablet Take 250 mg by mouth every other day. Active levoFLOXacin (Levaquin) 250 mg tablet 5 Active amLODIPine (Norvasc) 5 mg tabletIndicatio ns:Hypertension , unspecified type Take 1 tablet (5 mg) by mouth in the morning. 90 tablet 3 5 09/08/19 26 Active amLODIPine (Norvasc) 5 mg tabletIndicatio ns:Hypertension , unspecified type Take 1 tablet (5 mg) by mouth in the morning for 30 doses. 30 tablet 5 09/08/19 25 Discontinu ed(Reorder ) Active Problems Problem Noted Date Diagnosed Date Lesion of bladder 08/28/2024 Chest pain 08/13/2024 Assessment & Plan (08/13/2024 [...] (03/21/2022): Added automatically from request for surgery [id number] Gastroesophageal reflux disease 03/02/2022 Increased immunoglobulin 03/02/2022 [...] check diet Coronary artery disease invo lving quileute coronary artery of quileute heart 09/19/2011 Assessment & Plan (08/13/2024 1:28 PM EDT): As above Type 1 diabetes mellitus 09/19/2011 Essential hypertension 09/19/2011 Immunizations Immunization Administration Dates Next Due Influenza Whole 01/19/2008 Influenza, High Dose Seasonal, Preservative Free 01/16/2017 Influenza, Seasonal, Quadrivalent, Adjuvanted Influenza, injectable, quadrivalent, preservativ e free 11/30/2016 Influenza, seasonal, injectable 01/23/2012,12/13 Influenza, trivalent, adjuvanted 01/17/2018 Novel [id number], preservative-free 01/27 Pneumococcal Conjugate PCV 13 11/14/2016 Pneumococcal Polysaccharide [id number] 01/17/2018,05/2016 Social History Tobacco Use Types Packs/Day Years Used Date Smoking Tobacco: Former Cigarettes Smokeless Tobacco: Never Tobacco Cessation:Counseling Given: Not Answered Alcohol Use Standard Drinks/Week Comments Never 0 (1 standard drink = 0.6 oz pur e alcohol) [facility] Utilities Answer Date Recorded In the past 12 months has th e [employer], gas, oil, or water [employer] threatened to shut off services in your [...] any time in the past 12 m [facility], were you homeless or living in a m[facility]p (including now)? No 08/13/2024 Hunger Vital Sign Answer Date Recorded Within the past 12 months, y ou worried that your food would run out before you got the money to buy more. Never true 08/14/19 25 Ran Out of Food in the Last Year Not on file 08/13/2024 Sex and Gender Information Value Date Recorded Sex Assigned at Male 02/12/2023 9:24 AM EST Legal Sex Male 10:14 PM EDT Gender Identity Male 02/12/2023 9:24 AM EST Sexual Orientation Heterosexual or Straight 01/30 9:24 AM EST Last Filed Vital Signs Vital Sign Reading Time Taken Comments Blood Pressure 147/83 08/28/2024 8:31 AM EDT Pulse 76 08/28/2024 8:31 AM EDT Temperature 36.2 C (97.2 F) 08/14/2024 4:30 PM EDT Respiratory Rate 16 08/14/2024 6:20 PM EDT Oxygen Saturation 97% 08/20/2024 9:43 AM EDT Inhaled Oxygen Concentration - - Weight 82.6 kg (182 lb) 08/28/2024 8:31 AM EDT Height 170.2 cm (5' 7 ) 08/28/2024 8:31 AM EDT Body Mass Index 28.51 08/28/2024 8:31 AM EDT Plan of Treatment Upcoming Encounters Date Type Department Care Team (Late st Contact Info) Description 09/25/2024 9:00 AM EDT Pre-Admission Testing [facility] Pre-Anesthesia Clinic [address] [place] [phone] 09/29/2024 12:30 PM EDT Hospital Encounter [facility] Main Operating Room [address] [place] [address] Last Mcmanus MD [address] [place] [address] [place] [address] 09/29/2024 12:30 PM EDT - 09/29/2024 2:00 PM EDT Surgery [facility] Main Operating Room [address] [place] [address] Last Mcmanus MD [address] [place] [address] [place] [address] TURBT (TRANSURETHRAL RESECTION OF BLADDER TUMOR) [54191 (CPT )] 10/13/2024 9:00 AM EDT Office Visit [facility] [address] [place] [address] Pinky Bishop MD [address] [place] [address] Scheduled Procedures Name Priority Associated Diagnoses Date/Ti me TURBT (TRANSURETHRAL RESECTI ON OF BLADDER TUMOR) Lesion of bladder 09/29/2024 12:30 PM EDT Medical Devices Implanted Type Area Assistant Casino Shift Manager Device Identifier Shelf Expiration Date Model / Serial / Lot Vigilant X4 Gas Station Attendant-D Is-1/Df4/Is4 Implanted:Qty: 1 on 02/12/2023 by Kevin Jacobs MD at [facility] 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 ICD [employer] [id number] 09/09/2024 [id number] / [id number] / Stent,Synergy Mr 4.00 X 28 - [id number] Implanted:Qty: 1 on 09/27/2023 by Petar Foreman MD at [facility] Drug Eluting Stent [employer] [id number] 04/09/2024 [id number] / / [id number] Ingevity+ Is-1 Bi Positive Fix Ra/Rv 52cm Implanted:Qty: 1 on 03/21/2022 by Kevin Jacobs MD at [facility] Lead [employer] [id number] 03/09/2024 [id number] / [id number] / Ingevity+ Is-1 Bi Positive Fix Ra/Rv 45cm Implanted:Qty: 1 on 03/21/2022 by Kevin Jacobs MD at [facility] Lead [employer] [id number] 01/02/2024 7840 / [id number] / [place] 4-Front S Active Fix Single Coil 59cm Implanted:Qty: 1 on 02/12/2023 by Kevin Jacobs MD at [facility] Lead [employer] [id number] 01/06/2025 0672 / [id number] / Lead,Acuity X4,Spiral L - [id number] - [id number] Implanted:Qty: 1 on 02/12/2023 by Kevin Jacobs MD at [facility] Lead [employer] [id number] 01/13/2025 4677 / [id number] / Pacer,Accolade ,Mri Dr Castelan - [id number] - [id number] Implanted:Qty: 1 on 03/21/2022 by Kevin Jacobs MD at [facility] Pacemaker [employer] 02/05/2024 L331 / [id number] / [id number] Description:Mode: DDD RYTHMIQ: OFF LRL / MTR [...] Procedure Name Priority Date/Time Associated Diagnosis Comments CBC WITH AUTO DIFFERENTIAL Routine 08/28/2024 9:58 AM EDT Lesion of bladder PROTIME-INR Routine 08/28/2024 9:58 AM EDT Lesion of bladder Other specified disorders of bladder APTT Routine 08/28/2024 9:58 AM EDT Lesion of bladder Other specified disorders of bladder COMPREHENSIVE METABOLIC PANEL Routine 08/28/2024 9:58 AM EDT Lesion of bladder CBC AND DIFFERENTIAL Routine 08/28/2024 9:58 AM EDT Lesion of bladder PSA Routine 08/28/2024 9:58 AM EDT Lesion of bladder Encounter for screening for malignant neoplasm of prostate URINE CULTURE Routine 08/28/2024 9:58 AM EDT Lesion of bladder Urinary tract infection without hematuria, site unspecified CT TRANSFER OF OUTSIDE FILMS Routine 08/28/2024 12:00 AM EDT POCT GLUCOSE METER UNSOLICITED [...] EDT Pre-operative cardiovascular examination, ICD in place from Last 3 Months Results * (ABNORMAL) CBC auto differential (08/28/2024 9:58 AM EDT) Only the most recent of2 resultswithin the time period is included. Auto WBC 9.60 4.00 - 10.60 10*3/uL 08/28/2024 11:15 AM EDT [facility] ([facility]) RBC 4.93 4.20 - 5.70 10*6/uL 08/28/2024 11:15 AM EDT [facility] ([facility]) Hemoglobin 14.4 13.0 - 17.0 g/dL 08/28/2024 11:15 AM EDT [facility] ([facility]) Hematocrit 44.8 39.0 - 50.0 % 08/28/2024 11:15 AM EDT [facility] ([facility]) MCV 90.9 82.0 - 98.0 fL 08/28/2024 11:15 AM EDT [facility] ([facility]) MCH 29.2 27.0 - 33.0 pg 08/28/2024 11:15 AM EDT [facility] ([facility]) MCHC 32.1 32.0 - 35.0 g/dL 08/28[facility]2024 [facility] RDW 14.1 11.5 - 15.0 % 08/28/2024 11:[facility] Neutrophils % 69.9 40.0 - 72.0 % 08/28/2024 11:15 AM [facility] ([facility]) Lymphocytes % 18.9(L) 20.0 - 45.0 % 08/28/2024 11:15 AM T [facility] ([facility]) Monocytes % 7.9 5.0 - 12.0 % 08/28/2024 11:15 AM [facility] ([facility]) Eosinophils % 1.8 0.0 - 6.0 % 08/28/2024 11:15 AM [facility] ([facility]) Basophils % 0.9 0.0 - 1.0 % 08/28/2024 11:15 AM [facility] ([facility]) Neutrophils Absolute 6.71 1.60 - 7.60 10*3/uL 08/28/2024 11:15 AM [facility] ([facility]) Lymphocytes Absolute 1.81 1.20 - 4.00 10*3/uL 08/28/2024 11:15 AM [facility] ([facility]) Monocytes Absolute 0.76 0.10 - 1.00 10*3/uL 08/28/2024 11:15 AM [facility] ([facility]) Eosinophils Absolute 0.17 0.00 - 0.50 10*3/uL 08/28/2024 11:15 AM [facility] ([facility]) Basophils Absolute 0.09 0.00 - 0.20 10*3/uL 08/28/2024 11:15 AM [facility] ([facility]) Platelets 278 150 - 400 10*3/uL 08/28/2024 11:15 AM [facility] ([facility]) nRBC % 0.0 0 % 08/28/2024 11:15 AM [facility] ([facility]) Immature Granulocytes % 0.6 0.0 - 1.0 % 08/28/2024 11:15 AM [facility] ([facility]) Immature Granulocytes Absolute 0.06 0.00 - 0.20 10*3/uL 08/28/2024 11:15 AM EDT [facility] ([facility]) Blood Venous blood specimen / Unknown Venipuncture / Unknown 08/28/2024 9:58 AM EDT 08/28/2024 10:46 AM EDT Obrajeev Mcmanus MD LAB BLOOD ORDERABLES Final Resul t Performing Organization Address [place]/[facility] Co de Phone Number [facility]) [address] [place] [address] * APTT (08/28/2024 9:58 AM EDT) aPTT 29.3 25.0 - 35.0 Seconds 08/28/2024 11:06 AM EDT [facility] ([facility]) Comment:Clinical significanc e of the APTT is questionable in the presence of heparin. Blood Venous blood specimen / Unknown Venipuncture / Unknown 08/28/2024 9:58 AM EDT 08/28/2024 10:38 AM EDT Last Mcmanus MD LAB BLOOD ORDERABLES Final Resul t Performing Organization Address [place]/[facility] de Phone Number [facility]) [address] [place] [address] * Protime-INR (08/28/2024 9:58 AM EDT) Protime 14.2 12.3 - 14.8 Seconds 08/28/2024 11:06 AM EDT [facility] ([facility]) INR 1.10 0.90 - 1.10 08/28/2024 11:06 AM EDT [facility]) Comment: [facility] RECOMMENDED INR FOR WARFARIN THERAPY CONDITION INR PROPHYLAXIS OF VENOUS THROMBOSIS 2-3 (HIGH-RISK SURGERY) TREATMENT OF VENOUS THROMBOSIS 2-3 TREATMENT OF PULMONARY EMBOLISM 2-3 PREVENTION OF SYSTEMIC EMBOLISM: 2-3 ACUTE MYOCARDIAL INFARCTION TISSUE HEART VALVES VALVULAR HEART DISEASE ATRIAL FIBRILLATION RECURRENT SYSTEMIC EMBOLISM MECHANICAL HEART VALVE 2.5-3.5 FROM: ORAL ANTICOAGULANTS. MECHANISM OF ACTION, CLINICAL EFFECTIVENESS, AND OPTIMAL THERAPEUTIC RANGE. CHEST 1995;108:231S-246S. Blood Venous blood specimen / Unknown Venipuncture / Unknown 08/28/2024 9:58 AM EDT 08/28/2024 10:38 AM EDT Last Mcmanus MD LAB BLOOD ORDERABLES Final Resul t Performing Organization Address City/[facility]/ZIP Co de Phone Number [facility]) [address] [place] [address] * Urine culture, routine (08/28/2024 9:58 AM EDT) Urine Culture <10,000 CFU/ML No Significant Growth MALCOLM 08/30/2024 6:58 AM EDT [facility]) Urine Urine specimen obtained by clean catch procedure / Unknown Non-blood Collection / Unknown 08/28/2024 9:58 AM EDT 08/28/2024 10:38 AM EDT Last Mcmanus MD LAB MICROBIOLOGY - GENERAL ORDER KURTIS Final Result Performing Organization Address City/[facility]/ZIP Co de Phone Number [facility]) [address] [place] [address] * PSA Screening (08/28/2024 9:58 AM EDT) PSA 1.5 0.4 - 4 ng/mL 08/28/2024 11:18 AM EDT [facility]) Blood Venous blood specimen / Unknown Venipuncture / Unknown 08/28/2024 9:58 AM EDT 08/28/2024 10:45 AM EDT us Last Mcmanus MD LAB BLOOD ORDERABLES Final Resul t [facility] ([facility]) [address] [place] [address] * (ABNORMAL) Comprehensive metabolic panel (08/28/2024 9:58 AM EDT) Only the most recent of2 resultswithin the time period is included. Sodium 138 136 - 145 mmol/L 08/28/2024 11:14 AM T [facility] ([facility]) Potassium 5.9(H) 3.5 - 5.1 mmol/L 08/28/2024 11:14 AM T [facility] ([facility]) Chloride 105 98 - 107 mmol/L 08/28/2024 11:14 AM T [facility] ([facility]) CO2 28 21 - 31 mmol/L 08/28/2024 11:14 AM T [facility] ([facility]) Anion Gap 11 7 - 20 mmol/L 08/28/2024 11:14 AM [facility] ([facility]) BUN 30(H) 7 - 25 mg/dL 08/28/2024 11:14 AM T [facility] ([facility]) Creatinine 1.95(H) 0.70 - 1.30 mg/dL 08/28/2024 11:14 AM T [facility] ([facility]) BUN/Creatinine Ratio 15.4 08/01 11:14 AM T [facility] ([facility]) Glucose 185(H) 70 - 100 mg/dL 08/28/2024 11:14 AM T [facility] ([facility]) Calcium 9.6 8.6 - 10.3 mg/dL 08/28/2024 11:14 AM T [facility] ([facility]) AST 20 13 - 39 U/L 08/28/2024 11:14 AM EDT [facility] ([facility]) ALT (SGPT) 17 7 - 52 U/L 08/28/2024 11:14 AM EDT [facility] ([facility]) Alkaline Phosphatase 117(H) 34 - 104 U/L 08/28/2024 11:14 AM EDT [facility] ([facility]) Total Protein 7.7 6.0 - 8.3 g/dL 08/28/2024 11:14 AM EDT [facility] ([facility]) Albumin 4.5 3.5 - 5.7 g/dL 08/28/2024 11:14 AM EDT [facility] ([facility]) Total Bilirubin 0.6 0.3 - 1.0 mg/dL 08/28/2024 11:14 AM EDT [facility] ([facility]) eGFR 35.9(L) >60.0 mL/min/1. 73m*2 08/28/2024 11:14 AM EDT [facility] ([facility]) Comment:[facility] s estimated glomerular filtration rate [...] blood specimen / Unknown Venipuncture / Unknown 08/28/2024 9:58 AM EDT 08/28/2024 10:44 AM EDT us Last Mcmanus MD LAB BLOOD ORDERABLES Final Resul t [facility] ([facility]) [address] [place], [place] [id number] * CT transfer of outside films (08/28/2024 12:00 AM EDT) Narrative IMAGING - 08/28/2024 9:30 AM EDT This order has been auto-finalized and does not contain a result. us Last Mcmanus MD IMG CT PROCEDURES Final Result IMAGING * (ABNORMAL) POCT glucose meter (08/14/2024 3:34 PM EDT) Only the most recent of6 resultswithin the time period is included. Glucose POC 155(H) 70 - 105 mg/dL 08/14/2024 3:47 PM EDT [facility] ([facility]) Comment:dcundic Blood Capillary blood specimen / Unknown 08/14/2024 3:34 PM EDT 08/14/2024 3:47 PM EDT Narrative [facility] - 08/14/2024 3:47 PM EDT Waived Testing in the ED is performed under the ED CLIA certificate #[id number]. Devante Leon MD LAB BLOOD ORDERABLES Final Resul t [facility] ([facility]) [address] [place] [address] * [facility] Stress Myocardial Perfusion Imaging (08/14/2024 11:03 AM EDT) Anatomical Region Laterality Modality Other 08/14/2024 10:4 3 AM EDT Narrative 08/14/2024 9:52 AM EDT 1 [facility] Heart Station [address] [place] [address] [phone] (fax) [facility] Stress Myocardial Perfusion Imaging- [facility] [...] [facility] Exercise Time: 03:00 Device: Treadmill HR Newfolden Used: 12.00 % HR Recovery: -1 bpm Frequent VE: 0 VE/min Resolution: No Symptoms Max HR: 93 bpm Target HR: 125 bpm Achieved: No Resting HR: 82 bpm Max Predicted HR: 148 bpm Achv. of Max Predicted: 62 % BP Max: 154/89 BP at Rest: 147/72 Max RPP: 73744 mmHg*bpm Max ST Lead: V6 Max ST Phase: Postinfsn Stage No. in Phase: [address] Stage: 3-[address] Amplitude: -0.[address] [place]: -0.470 mV/s Max ST Time in Phase: 03:30 Artifact Count: 0 Chest Pain: no Pharmalogical Stress Examination Protocol Stage Name Time in Stage Load Heart Rate BP Dosage ST Level Cardiac Arrhy Cardiac Symp. Other Pain Changes Symptom Supine 10:26 1.00 mets 82 bpm 147/72 -0.750 mm Infusion 30 seconds 00:30 1.00 mets 82 bpm 147/72 -0.650 mm [id number] 00:30 1.00 mets 87 bpm 147/72 -0.650 [...] 4 - Aneurysmal Procedure Staff Reading Group: [facility] Referring Physician: HARLEY GOODMAN Stress Pivot Maker: Angely Dalal Auto Transmission Specialist: Shira Zhou Ordering Physician: TATIANNA HAYWARD Advanced Practitioner: Bozena Santacruz NP Nurse: Juli Salazar Resting Perfusion Procedure Note Yuridia Velez MD - 08/14/2024 1 1 [facility] Heart Station [address] [phone] (fax) [facility] Stress Myocardial Perfusion Imaging- [facility] [...] [facility] Exercise Time: 03:00 Device: Treadmill HR Newfolden Used: 12.00 % HR Recovery: -1 bpm Frequent VE: 0 VE/min Resolution: No Symptoms Max HR: 93 bpm Target HR: 125 bpm Achieved: No Resting HR: 82 bpm Max Predicted HR: 148 bpm Achv. of Max Predicted: 62 % BP Max: 154/89 BP at Rest: 147/72 Max RPP: 83985 mmHg*bpm Max ST Lead: V6 Max ST Phase: Postinfsn Stage No. in Phase: [address] Stage: 3-[address] Amplitude: -0.[address] [place]: -0.470 mV/s Max ST Time in Phase: 03:30 Artifact Count: 0 Chest Pain: no Pharmalogical Stress Examination Protocol Stage Name Time in Stage Load Heart Rate BP Dosage ST Level Cardiac Arrhy Cardiac Symp. Other Pain Changes Symptom Supine 10:26 1.00 mets 82 bpm 147/72 -0.750 mm Infusion 30 seconds 00:30 1.00 mets 82 bpm 147/72 -0.650 mm [id number] 00:30 1.00 mets 87 bpm 147/72 -0.650 [...] 4 - Aneurysmal Procedure Staff Reading Group: [facility] Referring Physician: HARLEY GOODMAN Stress Pivot Maker: Angely Dalal Auto Transmission Specialist: Shira Zhou Ordering Physician: TATIANNA HAYWARD Advanced Practitioner: Bozena Santacruz NP Nurse: Juli Salazar Resting Perfusion us Tatianna Hayward MD CV STRESS PROCEDURES Final Result * COMPLETE ECHO (TTE) W/ IMAGING AGENT (08/14/2024 8:59 AM EDT) Anatomical Region Laterality Modality Other 08/14/2024 8:33 AM EDT Narrative 08/14/2024 9:44 AM EDT 1 1 [facility] Heart Station [address] [place] [address] [phone] (fax) Echocardiogram-[facility] Name: LANI LIZAMA [...] No pericardial effusion. Procedure Staff Reading Group: [facility]i Programmer: Lorri Carbajal, BS, RDCS Ordering Physician: TATIANNA HAYWARD Wall Motion Scores -1 - hyperkinesia, 0 - not evaluated, 1 - normal, 2 - hypokinesia, 3 - akinesia, 4 - dyskinesia Procedure Note Fabricio Galindo MD - 08/14/2024 1 1 [facility] Heart Station [address] [place] [address] [phone] (fax) Echocardiogram-[facility] Name: LANI LIZAMA [...] No pericardial effusion. Procedure Staff Reading Group: [facility]i Programmer: MASTER Ortega, RDCS Ordering Physician: TATIANNA HAYWARD Wall Motion Scores -1 - hyperkinesia, 0 - not evaluated, 1 - normal, 2 - hypokinesia, 3 - akinesia, 4 - dyskinesia Tatianna Hayward MD CV ECHO PROCEDURES Final R esult * (ABNORMAL) High Sensitivity Troponin I (08/14/2024 7:14 AM EDT) Only the most recent of2 resultswithin the time period is included. [facility] High Sensitivity Troponin I 160(HH) <20 ng/L 08/14/2024 8:12 AM EDT [facility] ([facility]) Blood Venous blood specimen / Unknown Venipuncture / Unknown 08/14/2024 7:14 AM EDT 08/14/2024 7:25 AM EDT Devante Leon MD LAB BLOOD ORDERABLES Final Resul t [facility]) [address] [place] [address] * Lavender Top (08/14/2024 7:14 AM EDT) [facility] Extra Tube Hold for add-ons. 08/14/2024 9:01 AM EDT [facility] ([facility]) Comment:Auto resulted. Blood Venous blood specimen / Unknown 08/14/2024 7:14 AM EDT 08/14/2024 7:25 AM EDT Devante Leon MD LAB BLOOD ORDERABLES Final Resul t [facility]) [address] [place] [address] * Cardiac device check - Remote ICD (08/14/2024 12:00 AM EDT) Only the most recent of2 resultswithin the time period is included. Anatomical Region Laterality Modality Other 08/14/2024 us Kevin Jacobs MD CV IMPLANTABLE CARDIAC DEVICE CO OCEDURES Final Result * ECG 12 lead (08/13/2024 5:41 PM EDT) Ventricular Rate 86 BPM GE MUSE Atrial Rate 86 BPM GE MUSE CO Interval 154 ms GE MUSE QRS DURATION 144 ms GE MUSE QT Interval 424 ms GE MUSE QTC CALCULATION(BAZE TT) 507 ms GE MUSE P Whitlash 37 degrees GE MUSE R-Whitlash -56 degrees GE MUSE T Wave Whitlash 114 degrees GE MUSE 08/13/2024 5:25 PM [...] Kevin Jacobs (80) on 08/13/2024 9:47:29 PM us Tatianna Hayward MD ECG ORDERABLES Final Resu lt GE MUSE * Phosphorus (08/13/2024 2:21 PM EDT) Phosphorus 3.6 2.5 - 5.0 mg/dL 08/13/2024 3:18 PM EDT [facility] ([facility]) Blood Venous blood specimen / Unknown Venipuncture / Unknown 08/13/2024 2:21 PM EDT 08/13/2024 2:50 PM EDT Graeme Sorensen MD LAB BLOOD ORDERABLES Final Re sult Performing Organization Address City/[facility]/ZIP Co de Phone Number [facility] ([facility]) [address] [place] [address] * Magnesium (08/13/2024 2:21 PM EDT) Magnesium 1.9 1.9 - 2.7 mg/dL 08/13/2024 3:18 PM EDT [facility] ([facility]) Blood Venous blood specimen / Unknown Venipuncture / Unknown 08/13/2024 2:21 PM EDT 08/13/2024 2:50 PM EDT Graeme Sorensen MD LAB BLOOD ORDERABLES Final Re sult Performing Organization Address [facility] de Phone Number [facility] ([facility]) [address] [place] [address] * XR transfer of outside films (08/04/2024 12:00 AM EDT) Narrative IMAGING - 08/04/2024 10:24 AM EDT This order has been auto-finalized and does not contain a result. Last Mcmanus MD IMG XR PROCEDURES Final Result Performing Organization Address [place]/[facility] Co de Phone Number IMAGING * CARDIAC DEVICE CHECK - REMOTE - ICD (07/17/2024 10:15 AM EDT) Only the most recent of2 resultswithin the time period is included. us Mannie Armijo MD CV IMPLANTABLE CARDIAC DEVICE CO OCEDURES Final Result Performing Organization Address City/[facility]/ZIP Co de Phone Number [facility] from Last 3 [place]ths [place] [address] [place] [address] MEDICARE MEDICAL M[employer] FAR[employer] Advance Directives * Full Code (Latest Code [...] 12:52 PM 01/28/2023 8:05 PM Care Teams Timber Hand Relationship Specialty Start Date End Date Harley Goodman DO [address] [facility] [place] [address] PCP - General 03/02/22
--- OUTSIDE RECORDS SUMMARY | 2024-09-21 09:19 | XMS_ITS | Clinical Summary ---
Author Organization [facility] Address [address] [place] [address] Phone Care Team Providers Care Senior Advisory Name Role Phone Unavailable Primary Care Provider [...]
--- OUTSIDE RECORDS SUMMARY | 2024-09-21 09:19 | XMS_ITS | Clinical Summary ---
Author Organization [facility] Address [address] [place] [address] Care Team Providers Care Analyst Market Intelligence Name Role Phone Unavailable Primary Care Provider [...]
--- OUTSIDE RECORDS SUMMARY | 2024-09-21 09:19 | XMS_ITS ---
Author Organization [facility] Address [address] [place] [address] Care Team Providers Care Manufacturing Group Leader Name Role Phone Harley Goodman DO Primary Care Provider [phone] Active Problems Problem Noted Date Diagnosed Date [...] 09/06/2023 Type 2 diabetes mellitus with hyperglycemia 06/0 09/2023 Acute on chronic systolic heart failure, [...] (03/21/2022): Added automatically from request for surgery [id number] Gastroesophageal reflux disease 03/02/2022 Increased immunoglobulin 03/02/2022 [...] check diet Coronary artery disease invo lving [place] coronary artery of [place] heart 09/19/2011 Assessment & Plan (08/13/2024 1:28 PM EDT): As above Type 1 diabetes mellitus 09/19/2011 Essential hypertension 09/19/2011 Current Treatment and Therapy Plans No current plan information found. Past Treatment and Therapy Plans No past plan information found. Lifetime Dose Tracking * Chemical Lifetime Dose Automatic Entry Manual Entr y Fluoro Time 97.87 minutes 0 minutes 97.87 minutes Air Kerma 1,585 mGy 0 mGy 1,585 mGy
--- OUTSIDE RECORDS SUMMARY | 2024-09-21 09:19 | XMS_ITS | Encounter Summary ---
Author Organization [facility] Address [address] [place] [address] Care Team Providers Care Band Tumbler Name Role Phone Harley Goodman DO Primary Care Provider [phone] Encounter Details Date Type Department Care Team (Late st Contact Info) Description 09/21/2024 Orders Only [facility] [address] [place] [address] Last Mcmanus MD [address] [place] [address] [address] [place] [address] Malignant neoplasm of urinary bladder, unspecified site (CMS/HCC) (Primary Dx); Urinary tract infection without hematuria, site unspecified; Other specified disorders of bladder Social History Tobacco Use Types Packs/Day Years Used Date Smoking Tobacco: Former Cigarettes Smokeless Tobacco: Never Alcohol Use Standard Drinks/Week Comments Never 0 (1 standard drink = 0.6 oz pur e alcohol) [facility] Utilities Answer Date Recorded In the past 12 months has e [employer], gas, oil, or water [employer] threatened to shut off services in your [...] any time in the past 12 m [facility], were you homeless or living in [...] Description 09/25/2024 9:00 AM EDT Pre-Admission Testing [facility] [address] [place] [phone] 09/29/2024 12:30 PM EDT Hospital Encounter [facility] Main Operating Room [address] [place] [address] Last Mcmanus MD [address] [place] [address] [place] [address] 09/29/2024 12:30 PM EDT - 09/29/2024 2:00 PM EDT Surgery [facility] Main Operating Room [address] [place] [address] Last Mcmanus MD [address] [place] [address] [address] [place] [address] TURBT (TRANSURETHRAL RESECTION OF BLADDER TUMOR) [97020 (CPT )] 10/13/2024 9:00 AM EDT Office Visit [facility] Heart at [facility] [address] [place] [address] Pinky Bishop MD [address] [facility] [place] [address] Scheduled Orders Name Type Priority Associated Diagnoses Orde r Schedule CBC and differential Lab Routine Malignant neoplasm of urinary bladder, unspecified site (CMS/HCC) Expected: 09/21/2024 (Approximate), Expires: 09/21/2025 Comprehensive metabolic panel Lab Routine Malignant neoplasm of urinary bladder, unspecified site (CMS/HCC) Expected: 09/21/2024 (Approximate), Expires: 09/21/2025 Urine culture, routine Microbiology Routine Malignant neoplasm of urinary bladder, unspecified site (CMS/HCC) Urinary tract infection without hematuria, site unspecified Expected: 09/21/2024 (Approximate), Expires: 09/21/2025 APTT Lab Routine Malignant neoplasm of urinary bladder, unspecified site (CMS/HCC) Other specified disorders of bladder Expected: 09/21/2024 (Approximate), Expires: 09/21/2025 [facility] Lab Routine Malignant neoplasm of urinary bladder, unspecified site (CMS/HCC) Expected: 09/21/2024 (Approximate), Expires: 09/21/2025 Scheduled Procedures Name Priority Associated Diagnoses Date/Ti me TURBT (TRANSURETHRAL RESECTI ON OF BLADDER TUMOR) Lesion of bladder 09/29/2024 12:30 PM EDT documented as of this encounter Visit Diagnoses Diagnosis Lesion of bladder- Primary Unspecified disorder of bladder Malignant neoplasm of urinary bladder, unspecified site (CMS/HCC)- Primary Urinary tract infection without hematuria, site unspecified Other specified disorders of bladder Lesion of bladder Unspecified disorder of bladder documented in this encounter Care Teams Band Tumbler Relationship Specialty Start Date End Date Harley Goodman DO [address] [place] [phone] PCP - General 03/02/22 documented as of this encounter
--- OUTSIDE RECORDS SUMMARY | 2024-09-21 09:19 | XMS_ITS | Encounter Summary ---
Author Organization [facility] Address [address] [place] [address] Care Team Providers Care Animal Trapper Name Role Phone Harley Goodman DO Primary Care Provider [phone] Encounter Details Date Type Department Care Team (Late st Contact Info) Description 09/21/2024 Telephone [facility] Urology [address] [place] [address] Serenity De Leon MA Social History Tobacco Use Types Packs/Day Years Used Date Smoking Tobacco: Former Cigarettes Smokeless Tobacco: Never Alcohol Use Standard Drinks/Week Comments Never 0 (1 standard drink = 0.6 oz pur e alcohol) [facility] Utilities Answer Date Recorded In the past 12 months has e electric, gas, oil, or water [employer] threatened to shut off services in your [...] AM EST documented as of this encounter Miscellaneous Notes * Telephone Encounter - Serenity De Leon MA - 09/21/2024 8:03 AM EDT Patient would like preop lab order to be faxed to [facility] fax#[phone]. Thank you This phone message was created by the Ambulatory float staff. If you need shipping support clerk follow up regarding this patient, please make your appropriate clinic staff member aware. Thank you. documented in this encounter Plan of Treatment Upcoming Encounters Date Type Department Care Team (Late st Contact Info) Description 09/25/2024 9:00 AM EDT Pre-Admission Testing [facility] Pre-Anesthesia Clinic [address] [place] [address] 09/29/2024 12:30 PM EDT Hospital Encounter [facility] Main Operating Room [address] [place] [address] Last Mcmanus MD [address] [place] [address] [address] [place] [address] 09/29/2024 12:30 PM EDT - 09/29/2024 2:00 PM EDT Surgery [facility] Main Operating Room [address] [place] [address] [place] [address] [place] [address] Dr [address] [place] [address] TURBT (TRANSURETHRAL RESECTION OF BLADDER TUMOR) [36579 (CPT )] 10/13/2024 9:00 AM EDT Office Visit [facility] at [facility] [address] [place] [address] Pinky Bishop MD [address] [facility] [address] [facility] [place] [address] Scheduled Procedures Name Priority Associated Diagnoses Date/Ti la TURBT (TRANSURETHRAL RESECTI ON OF BLADDER TUMOR) Lesion of bladder 09/29/2024 12:30 PM EDT documented as of this encounter Visit Diagnoses Not on filedocumented in this encounter Care Teams Animal Trapper Relationship Specialty Start Date End Date Harley Goodman DO [address] [facility] [place] [address] PCP - General 03/02/22 documented as of this encounter
--- OUTSIDE RECORDS SUMMARY | 2024-09-21 09:19 | XMS_ITS | Encounter Summary ---
Author Organization [facility] Address [address] [place] [address] Care Team Providers Care Fabric Coating Supervisor Name Role Phone Harley Goodman DO Primary Care Provider [phone] Encounter Details Date Type Department Care Team (Late st Contact Info) Description 09/02/2024 Orders Only [facility] Pre-Anesthesia Clinic [address] [place] [address] Kb Petersen, RN Social History Tobacco Use Types Packs/Day Years Used Date Smoking Tobacco: Former Cigarettes Smokeless Tobacco: Never Alcohol Use Standard Drinks/Week Comments Never 0 (1 standard drink = 0.6 oz pur e alcohol) [facility] Utilities Answer Date Recorded In the past 12 months has th e electric, gas, oil, or water [employer] threatened to shut off services in your [...] homeless or living in a half-way (including now)? No 08/13/2024 Hunger Vital Sign [...] Description 09/25/2024 9:00 AM EDT Pre-Admission Testing [facility] Pre-Anesthesia Clinic [address] [place] [address] 09/29/2024 12:30 PM EDT Hospital Encounter [facility] Main Operating Room [address] [place] [address] Last Mcmanus MD [address] [place] [address] [place] [address] 09/29/2024 12:30 PM EDT - 09/29/2024 2:00 PM EDT Surgery [facility] Main Operating Room [address] [place] [address] Last Mcmanus MD [address] [place] [address] [place] [address] TURBT (TRANSURETHRAL RESECTION OF BLADDER TUMOR) [86027 (CPT )] 10/13/2024 9:00 AM EDT Office Visit [facility] Heart at [facility] [address] [place] [address] Pinky Bishop MD [address] [facility] [place] [address] Scheduled Procedures Name Priority Associated Diagnoses Date/Ti me TURBT (TRANSURETHRAL RESECTI ON OF BLADDER TUMOR) Lesion of bladder 09/29/2024 12:30 PM EDT documented as of this encounter Visit Diagnoses Not on filedocumented in this encounter Care Teams Fabric Coating Supervisor Relationship Specialty Start Date End Date Harley Goodman DO [address] [facility] [place] [address] PCP - General 03/02/22 documented as of this encounter
--- OUTSIDE RECORDS SUMMARY | 2024-09-21 09:19 | XMS_ITS | Encounter Summary ---
Author Organization [facility] Address [address] [place] [address] Phone Care Team Providers Care Button Facing Machine Operator Name Role Phone Unavailable Primary Care Provider Unavailabl e Encounter Details Date Type Department Care Team (Late st Contact Info) Description 01/16/2022 Orders Only [facility] [address] [place] [address] Conversion, Onbase Social History Tobacco Use Types [...]
--- OUTSIDE RECORDS SUMMARY | 2024-09-21 09:19 | XMS_ITS | Encounter Summary ---
Author Organization [facility] Address [address] [place] [address] Care Team Providers Care Environmental Health Safety Engineer Name Role Phone Harley Goodman DO Primary Care Provider [phone] Encounter Details Date Type Department Care Team (Late st Contact Info) Description 09/18/2024 Orders Only [facility] Pre-Anesthesia Clinic [address] [place] [address] Kb Petersen, RN Social History Tobacco Use Types Packs/Day Years Used Date Smoking Tobacco: Former Cigarettes Smokeless Tobacco: Never Alcohol Use Standard Drinks/Week Comments Never 0 (1 standard drink = 0.6 oz pur e alcohol) [facility] Utilities Answer Date Recorded In the past 12 months has th e electric, gas, oil, or water [employer] threatened to shut off services in your [...] were you homeless or living in a intermediate (including now)? No 08/13/2024 Hunger Vital Sign [...] Description 09/25/2024 9:00 AM EDT Pre-Admission Testing [facility] Pre-Anesthesia Clinic [address] [place] [address] 09/29/2024 12:30 PM EDT Hospital Encounter [facility] Main Operating Room [address] [place] [address] Last Mcmanus MD [address] [place] [address] [place] [address] 09/29/2024 12:30 PM EDT - 09/29/2024 2:00 PM EDT Surgery [facility] Main Operating Room [address] [place] [address] Last Mcmanus MD [address] [place] [address] [place] [address] TURBT (TRANSURETHRAL RESECTION OF BLADDER TUMOR) [13495 (CPT )] 10/13/2024 9:00 AM EDT Office Visit [facility] at [facility] [address] [place] [address] Pinky Bishop MD [address] [facility] [place] [phone] Scheduled Procedures Name Priority Associated Diagnoses Date/Ti me TURBT (TRANSURETHRAL RESECTI ON OF BLADDER TUMOR) Lesion of bladder 09/29/2024 12:30 PM EDT documented as of this encounter Visit Diagnoses Not on filedocumented in this encounter Care Teams Environmental Health Safety Engineer Relationship Specialty Start Date End Date Harley Goodman DO [address] [facility] [address] PCP - General 03/02/22 documented as of this encounter
--- OUTSIDE RECORDS SUMMARY | 2024-09-21 09:19 | XMS_ITS | Clinical Summary ---
Author Organization [facility] Address [address] [place] [address] Care Team Providers Care Patient Companion Name Role Phone Harley Goodman DO Primary Care Provider [phone] Allergies No known active allergies Medications ALPRAZolam [...] (03/21/2022): Added automatically from request for surgery [id number] Gastroesophageal reflux disease 03/02/2022 Increased immunoglobulin 03/02/2022 [...] check diet Coronary artery disease invo lving [place] coronary artery of [place] heart 09/19/2011 Assessment & Plan (08/13/2024 1:28 PM EDT): As above Type 1 diabetes mellitus 09/19/2011 Essential hypertension 09/19/2011 Encounters Date Type Department Care Team Description 09/21/2024 Orders Only [facility] Urology [address] [place] [address] Last Mcmanus MD Malignant neoplasm of urinary bladder, unspecified site (CMS/HCC) (Primary Dx); Urinary tract infection without hematuria, site unspecified; Other specified disorders of bladder 09/21/2024 Telephone [facility] Urology [address] [place] [phone] Serenity De Leon MA 09/18/2024 Orders Only [facility] Pre-Anesthesia Clinic [address] [place] [address] Kb Petersen RN 09/07/2024 Refill [facility] [address] [place] [facility] [place] [address] Criselda Rebollar MA Hypertension, unspecified type 09/02/2024 Telephone [facility] [address] [facility] [place] [address] Criselda Rebollar MA 09/02/2024 Orders Only [facility] Pre-Anesthesia Clinic [address] [place] [phone] Kb Petersen RN 08/28/2024 10:05 AM EDT Lab [facility] Outpatient Draw Station [address] [place] [phone] Lesion of bladder; Encounter for screening for malignant neoplasm of prostate; Urinary tract infection without hematuria, site unspecified; Other specified disorders of bladder 08/28/2024 8:30 AM EDT Office Visit [facility] [place] [phone] Last Mcmanus MD Lesion of bladder (Primary Dx); Encounter for screening for malignant neoplasm of prostate; Urinary tract infection without hematuria, site unspecified; Other specified disorders of bladder 08/28/2024 - 08/28/2024 11:59 PM EDT Hospital Encounter [facility] Radiology External [place] [phone] Discharge Disposition: Home or Self Care (01) 08/20/2024 9:45 AM EDT Office Visit [facility] [address] [place] [facility] [place] [address] Pinky Bishop MD Chronic systolic heart failure (CMS/HCC) (Primary Dx); Coronary artery disease of [place] artery of [place] heart with stable angina pectoris; Primary hypertension; Status post implantation of automatic cardioverter/defibrill ator (AICD); Palpitations 08/14/2024 Orders Only [facility] [address] [place] [address] Kevin Jacobs MD 08/13/2024 11:14 AM EDT - 08/14/2024 6:44 PM EDT Hospital Encounter [facility] [address] [place] [address] Tomas Covington MD Saad, Hani, MD Chest pain (Primary Dx); Hypertension, unspecified type Discharge Disposition: Home or Self Care () 08/13/2024 Travel 08/04/2024 - 08/04/2024 11:59 PM EDT Hospital Encounter [facility] Radiology External Films [address] [place] [address] Bladder tumor Discharge Disposition: Home or Self Care () 08/04/2024 Orders Only [facility] Urology [address] [place] [address] Last Mcmanus MD Bladder tumor 07/16/2024 9:15 AM EDT Ancillary Procedure [facility] [address] [place] [phone] Pre-operative cardiovascular examination, ICD in place 07/16/2024 Orders Only [facility] [address] [place] [address] Mannie Armijo MD from Last 3 Months Immunizations Immunization Administration Dates Next Due Influenza Whole 01/19/2008 Influenza, High Dose Seasonal, Preservative Free 01/16/2017 Influenza, Seasonal, Quadrivalent, Adjuvanted Influenza, injectable, quadrivalent, preservativ e free 11/30/2016 Influenza, seasonal, injectable 01/23/2012,12/13 Influenza, trivalent, adjuvanted 01/17/2018 Novel [id number], preservative-free 01/27 Pneumococcal Conjugate PCV 13 11/14/2016 [...] drink = 0.6 oz pur e alcohol) [facility] Utilities Answer Date Recorded In the [...] time in the past 12 m [facility], were you homeless or living in [...] Description 09/25/2024 9:00 AM EDT Pre-Admission Testing [facility] Pre-Anesthesia Clinic [address] [place] [address] 09/29/2024 12:30 PM EDT Hospital Encounter [facility] Main Operating Room [address] [place] [address] Last Mcmanus MD [address] [place] [address] [place] [phone] 09/29/2024 12:30 PM EDT - 09/29/2024 2:00 PM EDT Surgery [facility] Main Operating Room [address] [place] [address] Last Mcmanus MD [address] [place] [address] [place] [address] TURBT (TRANSURETHRAL RESECTION OF BLADDER TUMOR) [05653 (CPT )] 10/13/2024 9:00 AM EDT Office Visit [facility] [address] [place] [address] Pinky Bishop MD [address] [facility] [place] [phone] Scheduled Procedures Name Priority Associated Diagnoses Date/Ti me TURBT (TRANSURETHRAL RESECTI ON OF BLADDER TUMOR) Lesion of bladder 09/29/2024 12:30 PM EDT Health Maintenance Due Date Last Done Comments [...] 07/10/2021 Colorectal Cancer Screening 07/11/2031 Pneumococcal Vaccine: 50+ Years Completed 01/17/2018, 11/14/2016, 04/02/2016 Influenza Vaccine [...] this topic Medical Devices Implanted Type Area Undercover Operator Device Identifier Shelf Expiration Date Model / Serial / Lot Vigilant X4 Technical Maintenance Specialist-D Is-1/Df4/Is4 Implanted:Qty: 1 on 02/12/2023 by Kevin Jacobs MD at [facility] NATIONAL VAN OWNER OPERATOR-D ICD [employer] [id number] 09/09/2024 [id number] / [id number] / Stent,Synergy Mr 4.00 X 28 - [id number] Implanted:Qty: 1 on 09/27/2023 by Petar Foreman MD at [facility] Drug Eluting Stent [employer] [id number] 04/09/2024 [id number] / / [id number] Ingevity+ Is-1 Bi Positive Fix Ra/Rv 52cm Implanted:Qty: 1 on 03/21/2022 by Kevin Jacobs MD at [facility] Lead [employer] [id number] 03/09/2024 7841 / [id number] / Ingevity+ Is-1 Bi Positive Fix Ra/Rv 45cm Implanted:Qty: 1 on 03/21/2022 by Kevin Jacobs MD at [facility] Lead [employer] [id number] 01/02/2024 7840 / [id number] / [place] 4-Front S Active Fix Single Coil 59cm Implanted:Qty: 1 on 02/12/2023 by Kevin Jacobs MD at [facility] Lead [employer] [id number] 01/06/2025 0672 / [id number] / Lead,Acuity X4,Spiral L - [id number] - [id number] Implanted:Qty: 1 on 02/12/2023 by Kevin Jacobs MD at [facility] Lead [employer] [id number] 01/13/2025 4677 / [id number] / Pacer,Accdebide ,Mri Dr Castelan - [id number] - [id number] Implanted:Qty: 1 on 03/21/2022 by Kevin Jacobs MD at [facility] Pacemaker [employer] 02/05/2024 L331 / [id number] / [id number] Description:Mode: DDD RYTHMIQ: OFF LRL / MTR [...] - 10.60 10*3/uL 08/28/2024 11:15 AM EDT [facility] ([facility]) RBC 4.93 4.20 - 5.70 10*6/uL 08/28/2024 11:15 AM T [facility] ([facility]) Hemoglobin 14.4 13.0 - 17.0 g/dL 08/28/2024 11:15 AM T [facility] ([facility]) Hematocrit 44.8 39.0 - 50.0 % 08/28/2024 11:15 AM [facility] ([facility]) MCV 90.9 82.0 - 98.0 fL 08/28/2024 11:15 AM [facility] ([facility]) MCH 29.2 27.0 - 33.0 pg 08/28/2024 11:15 AM T [facility] ([facility]) MCHC 32.1 32.0 - 35.0 g/dL 08/28/2024 11:15 AM T [facility] ([facility]) RDW 14.1 11.5 - 15.0 % 08/28/2024 11:15 AM [facility] ([facility]) Neutrophils % 69.9 40.0 - 72.0 % 08/28/2024 11:15 AM T [facility] ([facility]) Lymphocytes % 18.9(L) 20.0 - 45.0 % 08/28/2024 11:15 AM EDT [facility] ([facility]) Monocytes % 7.9 5.0 - 12.0 % 08/28/2024 11:15 AM EDT [facility] ([facility]) Eosinophils % 1.8 0.0 - 6.0 % 08/28/2024 11:15 AM EDT [facility] ([facility]) Basophils % 0.9 0.0 - 1.0 % 08/28/2024 11:15 AM EDT [facility] ([facility]) Neutrophils Absolute 6.71 1.60 - 7.60 10*3/uL 08/28/2024 11:15 AM EDT [facility] ([facility]) Lymphocytes Absolute 1.81 1.20 - 4.00 10*3/uL 08/28/2024 11:15 AM EDT [facility] ([facility]) Monocytes Absolute 0.76 0.10 - 1.00 10*3/uL 08/28/2024 11:15 AM EDT [facility] ([facility]) Eosinophils Absolute 0.17 0.00 - 0.50 10*3/uL 08/28/2024 11:15 AM EDT [facility] ([facility]) Basophils Absolute 0.09 0.00 - 0.20 10*3/uL 08/28/2024 11:15 AM EDT [facility] ([facility]) Platelets 278 150 - 400 10*3/uL 08/28/2024 11:15 AM EDT [facility] ([facility]) nRBC % 0.0 0 % 08/28/2024 11:15 AM T [facility] ([facility]) Immature Granulocytes % 0.6 0.0 - 1.0 % 08/28/2024 11:15 AM T [facility] ([facility]) Immature Granulocytes Absolute 0.06 0.00 - 0.20 10*3/uL 08/28/2024 11:15 AM T [facility] ([facility]) Blood Venous blood specimen / Unknown Venipuncture / Unknown 08/28/2024 9:58 AM EDT 08/28/2024 10:46 AM EDT Obi Marietta LEMUS LAB BLOOD ORDERABLES Final Resul t Performing Organization Address City/State/[facility] de Phone Number [facility] ([facility]) [address] [place], [place] [id number] * APTT (08/28/2024 9:58 AM EDT) aPTT 29.3 25.0 - 35.0 Seconds 08/28/2024 11:06 AM EDT [facility] ([facility]) Comment:Clinical significanc e of the APTT is questionable in the presence of heparin. Blood Venous blood specimen / Unknown Venipuncture / Unknown 08/28/2024 9:58 AM EDT 08/28/2024 10:38 AM EDT Last Mcmanus MD LAB BLOOD ORDERABLES Final Resul t Performing Organization Address [facility] de Phone Number [facility] ([facility]) [address] [place] [address] * Protime-INR (08/28/2024 9:58 AM EDT) Protime 14.2 12.3 - 14.8 Seconds 08/28/2024 11:06 AM EDT [facility] ([facility]) INR 1.10 0.90 - 1.10 08/28/2024 11:06 AM EDT [facility] ([facility]) Comment: ACC RECOMMENDED INR FOR WARFARIN THERAPY CONDITION INR [...] MD LAB BLOOD ORDERABLES Final Resul t [facility]) [address] [place] [address] * Urine culture, routine (08/28/2024 9:58 AM EDT) Urine Culture <10,000 CFU/ML No Significant Growth MALCOLM 08/30/2024 6:58 AM EDT [facility] ([facility]) Urine Urine specimen obtained by clean catch procedure / Unknown Non-blood Collection / Unknown 08/28/2024 9:58 AM EDT 08/28/2024 10:38 AM EDT Last Mcmanus MD LAB MICROBIOLOGY - GENERAL ORDER KURTIS Final Result Performing Organization Address City/[facility]/ZIP Co de Phone Number [facility]) [address] [place] [address] * PSA Screening (08/28/2024 9:58 AM EDT) PSA 1.5 0.4 - 4 ng/mL 08/28/2024 11:18 AM EDT [facility]) Blood Venous blood specimen / Unknown Venipuncture / Unknown 08/28/2024 9:58 AM EDT 08/28/2024 10:45 AM EDT Last Mcmanus MD LAB BLOOD ORDERABLES Final Resul t [facility] [address] [place] [address] * (ABNORMAL) Comprehensive metabolic panel (08/28/2024 9:58 AM EDT) Only the most recent of2 resultswithin the time period is included. Sodium 138 136 - 145 mmol/L 08/28/2024 11:14 AM EDT [facility] ([facility]) Potassium 5.9(H) 3.5 - 5.1 mmol/L 08/28/2024 11:14 AM EDT [facility] ([facility]) Chloride 105 98 - 107 mmol/L 08/28/2024 11:14 AM EDT [facility] ([facility]) CO2 28 21 - 31 mmol/L 08/28/2024 11:14 AM T [facility] ([facility]) Anion Gap 11 7 - 20 mmol/L 08/28/2024 11:14 AM T [facility] ([facility]) BUN 30(H) 7 - 25 mg/dL 08/28/2024 11:14 AM T [facility] ([facility]) Creatinine 1.95(H) 0.70 - 1.30 mg/dL 08/28/2024 11:14 AM T [facility] ([facility]) BUN/Creatinine Ratio 15.4 08/01 11:14 AM [facility] ([facility]) Glucose 185(H) 70 - 100 mg/dL 08/28/2024 11:14 AM T [facility] ([facility]) Calcium 9.6 8.6 - 10.3 mg/dL 08/28/2024 11:14 AM EDT [facility] ([facility]) AST 20 13 - 39 U/L 08/28/2024 11:14 AM T [facility] ([facility]) ALT (SGPT) 17 7 - 52 U/L 08/28/2024 11:14 AM T [facility] ([facility]) Alkaline Phosphatase 117(H) 34 - 104 U/L 08/28/2024 11:14 AM T [facility] ([facility]) Total Protein 7.7 6.0 - 8.3 g/dL 08/28/2024 11:14 AM EDT [facility] ([facility]) Albumin 4.5 3.5 - 5.7 g/dL 08/28/2024 11:14 AM EDT [facility] ([facility]) Total Bilirubin 0.6 0.3 - 1.0 mg/dL 08/28/2024 11:14 AM EDT [facility] ([facility]) eGFR 35.9(L) >60.0 mL/min/1. 73m*2 08/28/2024 11:14 AM EDT [facility] ([facility]) Comment:[facility] s estimated glomerular filtration rate (eGFR) [...] 9:58 AM EDT 08/28/2024 10:44 AM EDT Last Mcmanus MD LAB BLOOD ORDERABLES Final Resul t [facility] ([facility]) [address] [place] [address] * CT transfer of outside films (08/28/2024 12:00 AM EDT) Narrative IMAGING - 08/28/2024 9:30 AM EDT This order has been auto-finalized and does not contain a result. Last Mcmanus MD IMG CT PROCEDURES Final Result IMAGING * (ABNORMAL) POCT glucose meter (08/14/2024 3:34 PM EDT) Only the most recent of6 resultswithin the time period is included. Glucose POC 155(H) 70 - 105 mg/dL 08/14/2024 3:47 PM EDT [facility] ([facility]) Comment:dcundic Blood Capillary blood specimen / Unknown 08/14/2024 3:34 PM EDT 08/14/2024 3:47 PM EDT Narrative [facility] ([facility]) - 08/14/2024 3:47 PM EDT Waived Testing in the ED is performed under the ED CLIA certificate #[id number]. us Devante Leon MD LAB BLOOD ORDERABLES Final Resul t [facility] ([facility]) [address] [place] [address] * Lexiscan Stress Myocardial Perfusion Imaging (08/14/2024 11:03 AM EDT) Anatomical Region Laterality Modality Other 08/14/2024 10:4 3 AM EDT Narrative 08/14/2024 9:52 AM EDT 1 1 [facility] Heart Station [address] [facility] [place] [address] (fax) Lexiscan Stress Myocardial Perfusion Imaging- [facility] Name: LANI LIZAMA Study Date: 08/14/2024 10:43 AM B/P: / HR: Date of : 1950 Location: [facility] Height: 67 in. Age: 73 year(s) Patient [...] Lexiscan Exercise Time: 03:00 Device: Treadmill HR [place] Used: 12.00 % HR Recovery: -1 bpm Frequent VE: 0 VE/min Resolution: No Symptoms Max HR: 93 bpm Target HR: 125 bpm Achieved: No Resting HR: 82 bpm Max Predicted HR: 148 bpm Achv. of Max Predicted: 62 % BP Max: 154/89 BP at Rest: 147/72 Max RPP: 77287 mmHg*bpm Max ST Lead: V6 Max ST Phase: Postinfsn Stage No. in Phase: [address] Stage: 3-[address] Amplitude: -0.[address] Treasure: -0.470 mV/s Max ST Time in Phase: 03:30 Artifact Count: 0 Chest Pain: no Pharmalogical Stress Examination Protocol Stage Name Time in Stage Load Heart Rate BP Dosage ST Level Cardiac Arrhy Cardiac Symp. Other Pain Changes Symptom Supine 10:26 1.00 mets 82 bpm 147/72 -0.750 mm Infusion 30 seconds 00:30 1.00 mets 82 bpm 147/72 -0.650 mm [id number] 00:30 1.00 mets 87 bpm 147/72 -0.650 [...] 4 - Aneurysmal Procedure Staff Reading Group: [facility] Referring Physician: HARLEY GOODMAN Stress Hot Metal Crane Operator: Angely Dalal Professor Of Mechanical Engineering: Shira Zhou Ordering Physician: TATIANNA HAYWARD Advanced Practitioner: Bozena Santacruz NP Nurse: Juli Salazar Resting Perfusion Procedure Note Yuridia Velez MD - 08/14/2024 1 1 [facility] Heart Station [address] [place] [address] [phone] (fax) Lexiscan Stress Myocardial Perfusion Imaging- [facility] Name: LANI LIZAMA Study Date: 08/14/2024 10:43 AM B/P: / HR: Date of : 1950 Location: [facility] Height: 67 in. Age: 73 year(s) Patient [...] Lexiscan Exercise Time: 03:00 Device: Treadmill HR [place] Used: 12.00 % HR Recovery: -1 bpm Frequent VE: 0 VE/min Resolution: No Symptoms Max HR: 93 bpm Target HR: 125 bpm Achieved: No Resting HR: 82 bpm Max Predicted HR: 148 bpm Achv. of Max Predicted: 62 % BP Max: 154/89 BP at Rest: 147/72 Max RPP: 94206 mmHg*bpm Max ST Lead: V6 Max ST Phase: Postinfsn Stage No. in Phase: [address] Stage: 3-[address] Amplitude: -0.[address] Treasure: -0.470 mV/s Max ST Time in Phase: 03:30 Artifact Count: 0 Chest Pain: no Pharmalogical Stress Examination Protocol Stage Name Time in Stage Load Heart Rate BP Dosage ST Level Cardiac Arrhy Cardiac Symp. Other Pain Changes Symptom Supine 10:26 1.00 mets 82 bpm 147/72 -0.750 mm Infusion 30 seconds 00:30 1.00 mets 82 bpm 147/72 -0.650 mm [id number] 00:30 1.00 mets 87 bpm 147/72 -0.650 [...] 4 - Aneurysmal Procedure Staff Reading Group: [facility] Referring Physician: HARLEY GOODMAN Stress Hot Metal Crane Operator: Angely Dalal Professor Of Mechanical Engineering: Shira Zhou Ordering Physician: TATIANNA HAYWARD Advanced Practitioner: Bozena Santacruz NP Nurse: Juli Salazar Resting Perfusion us Tatianna Hayward MD CV STRESS PROCEDURES Final Result * COMPLETE ECHO (TTE) W/ IMAGING AGENT (08/14/2024 8:59 AM EDT) Anatomical Region Laterality Modality Other 08/14/2024 8:33 AM EDT Narrative 08/14/2024 9:44 AM EDT 1 1 [facility] Heart Station [address] [place] [address] [phone] (fax) Echocardiogram-[facility] Name: LANI LIZAMA Study Date: 08/14/2024 08:33 AM B/P: 118 mmHg/75 mmHg HR: 75 bpm Date of : 1950 Location: [facility] Height: 67 in. Age: 73 year(s) Patient [...] No pericardial effusion. Procedure Staff Reading Group: [facility] Guest Experience Specialist: MASTER Ortega, RDCS Ordering Physician: TATIANNA HAYWARD Wall Motion Scores -1 - hyperkinesia, 0 - not evaluated, 1 - normal, 2 - hypokinesia, 3 - akinesia, 4 - dyskinesia Procedure Note Fabricio Gailndo MD - 08/14/2024 1 1 [facility] Heart Station [address] [facility] [place] [address] [phone] (fax) Echocardiogram-[facility] Name: LANI LIZAMA Study Date: 08/14/2024 08:33 AM B/P: 118 mmHg/75 mmHg HR: 75 bpm Date of : 1950 Location: [facility] Height: 67 in. Age: 73 year(s) Patient [...] No pericardial effusion. Procedure Staff Reading Group: [facility] Guest Experience Specialist: Lorri Carbajal, BS, RDCS Ordering Physician: TATIANNA [...] 160(HH) <20 ng/L 08/14/2024 8:12 AM EDT [facility] ([facility]) Blood Venous blood specimen / Unknown Venipuncture / Unknown 08/14/2024 7:14 AM EDT 08/14/2024 7:25 AM EDT Devante Leon MD LAB BLOOD ORDERABLES Final Resul t Performing Organization Address City/[facility] Co de Phone Number [facility]) [address] [place] [address] * Lavender Top (08/14/2024 7:14 AM EDT) Pathologist [facility] Extra Tube Hold for add-ons. 08/14/2024 9:01 AM EDT [facility] ([facility]) Comment:Auto resulted. Blood Venous blood specimen / Unknown 08/14/2024 7:14 AM EDT 08/14/2024 7:25 AM EDT Devante Leon MD LAB BLOOD ORDERABLES Final Resul t Performing Organization Address City/[facility]/ZIP Co de Phone Number [facility]) [address] [place] [address] * Cardiac device check - Remote ICD (08/14/2024 12:00 AM EDT) Only the most recent of2 resultswithin the time period is included. Anatomical Region Laterality Modality Other 08/14/2024 Kevin Jacobs MD CV IMPLANTABLE CARDIAC DEVICE MO OCEDURES Final Result * ECG 12 lead (08/13/2024 5:41 PM EDT) Ventricular Rate 86 BPM GE MUSE Atrial Rate 86 BPM GE MUSE MO Interval 154 ms GE MUSE QRS DURATION 144 ms GE MUSE QT Interval 424 ms GE MUSE QTC CALCULATION(BAZE TT) 507 ms GE MUSE P [place] 37 degrees GE MUSE R-[place] -56 degrees GE MUSE T Wave [place] 114 degrees GE MUSE 08/13/2024 5:25 PM [...] - 5.0 mg/dL 08/13/2024 3:18 PM EDT [facility] ([facility]) Blood Venous blood specimen / Unknown Venipuncture / Unknown 08/13/2024 2:21 PM EDT 08/13/2024 2:50 PM EDT us Graeme Sorensen MD LAB BLOOD ORDERABLES Final Re sult [facility] ([facility]) [address] [facility] [place] [address] * Magnesium (08/13/2024 2:21 PM EDT) Magnesium 1.9 1.9 - 2.7 mg/dL 08/13/2024 3:18 PM EDT [facility] ([facility]) Blood Venous blood specimen / Unknown Venipuncture / Unknown 08/13/2024 2:21 PM EDT 08/13/2024 2:50 PM EDT Graeme Sorensen MD LAB BLOOD ORDERABLES Final Re sult [facility] ([facility]) [address] [place] [address] * XR transfer of outside films (08/04/2024 12:00 AM EDT) Narrative IMAGING - 08/04/2024 10:24 AM EDT This order has been auto-finalized and does not contain a result. Last Mcmanus MD IMG XR PROCEDURES Final Result IMAGING * CARDIAC DEVICE CHECK - REMOTE - ICD (07/17/2024 10:15 AM EDT) Only the most recent of2 resultswithin the time period is included. us Mannie Armijo MD CV IMPLANTABLE CARDIAC DEVICE MO OCEDURES Final Result CPACS from Last 3 Months Insurance [employer] Advance Directives * Full Code (Latest Code [...] 12:52 PM 01/28/2023 8:05 PM Care Teams Patient Companion Relationship Specialty Start Date End Date Harley Goodman DO [address] [place] [phone] PCP - General 03/02/22
--- OUTSIDE RECORDS SUMMARY | 2024-09-21 09:19 | XMS_ITS | Clinical Summary ---
Author Organization [facility] Address [address] [place] [address] Care Team Providers Care Pump Servicer Name Role Phone Harley Goodman DO Primary Care Provider [phone] Allergies Active Allergy Reactions Criticality Noted Date [...] influenza vaccine, whole virus 01/19/2008 novel influenza ([id number]) vaccine, PF 01/27/2009 pneumococcal conjugate (PCV1 3) [...] N ot on file 03/08/2020 Data from: [email or web address] Last address used for calculation Not [...] - 8.0 g/dL 10/25/2020 10:27 AM EDT [facility] Albumin 4.3 3.9 - 4.9 g/dL 10/25/2020 10:27 AM EDT [facility] Calcium 9.1 8.5 - 10.2 mg/dL 10/25/2020 10:27 AM EDT [facility] Bilirubin, Total 0.7 0.2 - 1.3 mg/dL 10/25/2020 10:27 AM EDT [facility] Alkaline Phosphatase 98 38 - 113 U/L 10/25/2020 10:27 AM EDT [facility] AST 19 14 - 40 U/L 10/25/2020 10:27 AM EDT [facility] Glucose 191(H) 74 - 99 mg/dL 10/25/2020 10:27 AM EDT [facility] Comment: The [place] Diabetes Association (ADA) provides guidance for cutoff [...] Standards of Medical Care in Diabetes 2016, [place] [employer]. Diabetes Care. 2016.39(Suppl 1). BUN 20 9 - 24 mg/dL 10/25/2020 10:27 AM EDT [facility] Creatinine 1.93(H) 0.73 - 1.22 mg/dL 10/25/2020 10:27 AM EDT [facility] Sodium 139 136 - 144 mmol/L 10/25/2020 10:27 AM EDT [facility] Potassium 4.2 3.7 - 5.1 mmol/L 10/25/2020 10:27 AM EDT [facility] Chloride 106(H) 97 - 105 mmol/L 10/25/2020 10:27 AM EDT [facility] CO2 22 22 - 30 mmol/L 10/25/2020 10:27 AM EDT [facility] Anion Gap 11 9 - 18 mmol/L 10/25/2020 10:27 AM EDT [facility] ALT 16 10 - 54 U/L 10/25/2020 10:27 AM EDT [facility] eGFR- 42 10/25/2020 10:27 AM EDT [facility] eGFR-All Other Races 35 . 10/25/2020 10:27 AM EDT [facility] Comment: eGFR (Estimated GFR) Units of measure: [...] us Agustin Walker MD LABORATORY Final Result [id number] from Last 3 Months or Most Recently Relevant to Health Maintenance Insurance MEDICARE [facility] MEDICARE SUPPLEMENT Care Teams Pump Servicer Relationship Specialty Start Date End Date Harley Goodman DO [address] [place] [address] PCP - General Internal Medicine 07/18/18
--- OUTSIDE RECORDS SUMMARY | 2024-09-21 09:19 | XMS_ITS | Encounter Summary ---
Author Organization [facility] Address [facility] [place] [id number] Care Team Providers Care Guidance Director Name Role Phone Harley Goodman DO Primary Care Provider [phone] Source Comments In the event this information is protected by the Federal Confidentiality of Alcohol and Drug AbusePatient Records regulations: The Federal rules restrict any use of the information to criminally investigate or prosecute any alcohol or drug abuse patient.[facility] Encounter Details Date Type Department Care Team [...] on filedocumented in this encounter Care Teams Guidance Director Relationship Specialty Start Date End Date Harley Goodman DO [address] [facility] [address] [place] [id number] PCP - General Internal Medicine 07/18/18 documented as of this encounter
--- OUTSIDE RECORDS SUMMARY | 2024-09-21 09:19 | XMS_ITS | Encounter Summary ---
Author Organization [facility] Address [address] [place] [address] Care Team Providers Care Rn Lab Name Role Phone Harley Goodman DO Primary Care Provider [phone] Encounter Details Date Type Department Care Team (Late st Contact Info) Description 07/16/2024 Orders Only [facility] [address] [place] [address] Mannie Armijo MD [address] [place] [address] Social History Tobacco Use Types Packs/Day Years Used Date Smoking Tobacco: Former Cigarettes Smokeless Tobacco: Never Alcohol Use Standard Drinks/Week Comments Never 0 (1 standard drink = 0.6 oz pur e alcohol) [facility] Utilities Answer Date Recorded In the past 12 months has e [employer] gas, oil, or water [employer] threatened to shut off services in your [...] any time in the past 12 m [facility], were you homeless or living in a mcfp (including now)? No 02/13/2024 Hunger Vital Sign [...] Description 09/25/2024 9:00 AM EDT Pre-Admission Testing [facility] Pre-Anesthesia Clinic [address] [place] [address] 09/29/2024 12:30 PM EDT Hospital Encounter [facility] Main Operating Room [address] [place] [address] Last Mcmanus MD [address] [place] [address] [place] [address] 09/29/2024 12:30 PM EDT - 09/29/2024 2:00 PM EDT Surgery [facility] Main Operating Room [address] [place] [address] Last Mcmanus MD [address] [place] [address] [place] [address] TURBT (TRANSURETHRAL RESECTION OF BLADDER TUMOR) [43033 (CPT )] 10/13/2024 9:00 AM EDT Office Visit [facility] ([place], [place]) [address] [place] [address] Pinky Bishop MD [address] [facility] [address] [facility] [place] [phone] Scheduled Procedures Name Priority Associated Diagnoses Date/Ti me TURBT (TRANSURETHRAL RESECTI ON OF BLADDER TUMOR) Lesion of bladder 09/29/2024 12:30 PM EDT documented as of this encounter Procedures Procedure Name Priority Date/Time Associated Diagnosis Comments CARDIAC DEVICE CHECK - REMOTE - ICD Routine 07/16/2024 12:00 AM EDT documented in this encounter Results * Cardiac device check - Remote ICD (07/16/2024 12:00 AM EDT) Anatomical Region Laterality Modality Other 07/16/2024 us Mannie Armijo MD CV IMPLANTABLE CARDIAC DEVICE [place] OCEDURES Final Result documented in this encounter Visit Diagnoses Not on filedocumented in this encounter Care Teams Rn Lab Relationship Specialty Start Date End Date Harley Goodman DO [address] [facility] [place] [address] PCP - General 03/02/22 documented as of this encounter
--- OUTSIDE RECORDS SUMMARY | 2024-09-21 09:19 | XMS_ITS | Encounter Summary ---
Author Organization [facility] Address [address] [place] [address] Care Team Providers Care Extract Puller Name Role Phone Harley Goodman DO Primary Care Provider [phone] Reason for Visit * Reason Onset Date Comments Med Refill 09/07/2024 Encounter Details Date Type Department Care Team (Late st Contact Info) Description 09/07/2024 Refill [facility] [address] [place] [address] Criselda Rebollar MA Hypertension, unspecified type Social History Tobacco Use Types Packs/Day Years Used Date Smoking Tobacco: Former Cigarettes Smokeless Tobacco: Never Alcohol Use Standard Drinks/Week Comments Never 0 (1 standard drink = 0.6 oz pur e alcohol) [facility] Utilities Answer Date Recorded In the past [...] were you homeless or living in a nursing home (including now)? No 08/13/2024 Hunger Vital Sign [...] 09/25/2024 9:00 AM EDT Pre-Admission Testing [facility] Pre-Anesthesia Clinic [address] [place] [address] 09/29/2024 12:30 PM EDT Hospital Encounter [facility] Main Operating Room [address] [place] [address] Last Mcmanus MD [address] [place] [address] [place] [id number] 09/29/2024 12:30 PM EDT - 09/29/2024 2:00 PM EDT Surgery [facility] Main Operating Room [address] [place] [address] Last Mcmanus MD [address] [place] [address] [place] [address] TURBT (TRANSURETHRAL RESECTION OF BLADDER TUMOR) [56377 (CPT )] 10/13/2024 9:00 AM EDT Office Visit [facility] [address] [place] [address] Pinky Bishop MD [address] [facility] [place] [address] Scheduled Procedures Name Priority Associated Diagnoses Date/Ti me TURBT (TRANSURETHRAL RESECTI ON OF BLADDER TUMOR) Lesion of bladder 09/29/2024 12:30 PM EDT documented as of this encounter Visit Diagnoses Diagnosis Lesion of bladder- Primary Unspecified disorder of bladder Hypertension, unspecified type Lesion of bladder Unspecified disorder of bladder documented in this encounter Care Teams Extract Puller Relationship Specialty Start Date End Date Harley Goodman DO [address] [facility] [place] [address] PCP - General 03/02/22 documented as of this encounter
--- OUTSIDE RECORDS SUMMARY | 2024-09-21 09:19 | XMS_ITS | Clinical Summary ---
Author Organization [facility] Address [address] [place] [address] Care Team Providers Care Advertising Dispatch Clerks Supervisor Name Role Phone Harley Goodman Primary Care Provider [phone] Allergies Active Allergy Reactions Criticality Noted Date [...] Inject under the skin. Active HYDROcodone-diony taminophen ([place]) 5-325 MG tablet TAKE 1 TABLET BY [...] lower eyelids of both e yes 10/12/2022 Family History Medical History Relation Name Comments [...] Care Team (Late st Contact Info) Description 09/24/2024 8:40 AM EDT Office Visit [facility] [address] [facility] [address] [place] [address] Kenneth Aguilar DPM [address] [facility] [address] [place] [address] Health Maintenance Due Date Last Done Comments CT Colonography 1951 FIT 1950 FOBT 1950 Sigmoidoscopy 1950 FIT-DNA 08/16/2023 08/15/2020 Colonoscopy 07/11/2031 07/10/2021 Colorectal Cancer Screening 07/11/2031 Pneumococcal Vaccine: 65+ Years Completed 01/17/2018, 11/14/2016, 04/02/2016 Influenza Vaccine Completed 12/12/2023, , 12/15/2021, Additional history exists Insurance [facility]ICARE [facility] [place] Care Teams Advertising Dispatch Clerks Supervisor Relationship Specialty Start Date End Date Harley Goodman DO [address] [place] [address] PCP - General Internal Medicine 11/07/23
[2024-09-21 09:36] LABS: Basophils Absolute Auto 0.1 10^3/uL (0.0-0.1); Basophils Percent Auto 0.6 % (0.2-2.0); Eosinophils Absolute Auto 0.3 10^3/uL (0.0-0.7); Eosinophils Percent Auto 3.4 % (0.9-7.0); Hemoglobin 13.5 g/dL (14.0-18.0); Immature Granulocytes Abs Auto 0.03 10^3/uL (0.00-0.03); Immature Granulocytes Pct Auto 0.4 % (0.0-0.5); Lymphocytes Absolute Auto 1.7 10^3/uL (1.2-3.8); Lymphocytes Percent Auto 20.1 % (20.5-60.0); Mean Corpuscular HGB Conc 32.9 g/dL (29.9-35.2); Mean Corpuscular Hemoglobin 29.7 pg (25.9-34.0); Mean Corpuscular Volume 90.1 fL (80.0-94.0); Mean Platelet Volume 9.3 fL (9.5-13.5); Monocytes Absolute Auto 0.7 10^3/uL (0.3-0.8); Monocytes Percent Auto 7.8 % (1.7-12.0); Neutrophils Absolute Auto 5.7 10^3/uL (1.4-6.5); Neutrophils Percent Auto 67.7 % (43.0-75.0); Platelet Count 205 10^3/uL (150-450); Red Blood Count 4.55 10^6/uL (4.70-6.10); White Blood Count 8.5 10^3/uL (4.0-11.0)
--- OUTSIDE RECORDS SUMMARY | 2024-09-21 09:43 | XMS_ITS | CCD ---
Author Organization [facility] CliniSyfl Care Team Providers Care Enterprise Integration Architect Name Role Phone VIJAY EHAB Nakul Admitting Unavailable ELCANDIDO, EHAB A Attending Unavailable HARLEY CRESPO Referring Unavailable HARLEY CRESPO Primary Care Unavailable ELTAHAWJo, PINKY A Surgeon Unavailable MT Procedure Practitioner Unavailab le ELTAHAWJo, PINKY A Admitting Unavailable VIJAY, PINKY Moat Attending Unavailable HARLEY CRESPO Referring Unavailable HARLEY CRESPO Primary Care Unavailable Arlen Kwong Unavailable Kingsley Good Unavailable Shannon Escobar Unavailable HARLEY CRESPO Primary Care Physician [phone] Harley Crespo DO Primary Care Provider DO Harley Crespo Primary Care Provider [phone] JULY Kwong Attending Provider DO Gagan Shahid Admit Provider DO Gagan Shahid Attending Provider [phone] PINKY BISHOP Consulting [...] PARUL Sanchez Attending Unavailable CHU, DR PARUL Snachez Consulting Unavailable ZIEBER, DR HIGINIO Sanchez Consulting [...] BALL, DR CARVALHO Consulting Unavailable BALL, DR CARAVLHO Primary Care Unavailable BALL, DR CARVALHO Attending [...] Primary Care Provider DesireeBERTHA stricklandN John Paulnakul Monique Attending Provider Harley Crespo MD Primary Care Provider Harley Crespo DO Primary Care Provider Lani LEMUS, Tamara Álvarez Attending Provider KENNETH TAVERA Attending Unavailable KENNETH TAVERA Attending Unavailable KENNETH TAVERA Attending Unavailable KENNETH TAVERA Attending Unavailable Harley Crespo DO [facility] Care Provider Tamara Amaro MD Attending Provider Jason LARKIN Admitting Unavailable LARKIN, Jason R Referring Unavailable LARKIN, Jason Sanchez Attending Unavailable LARKIN, Jason R Attending Unavailable LARKIN, Jason R Admitting Unavailable BALLHARLEY Referring Unavailable LARKIN, Jason Sanchez Attending Unavailable Latisha, Kingsley Admitting Unavailable Latisha, Kingsley Attending Unavailable Ball, Harley Admitting Unavailable Ball, Harley Attending Unavailable Lani, Tamara Álvarez Admitting Unavail able Lani, Tamara Álvarez Attending Unavail able Harley Crespo [facility] Unavailable JENNI, KEVIN Referring Unavailable YESYTATIANNA Referring Unavailable YOST, YFN Referring Unavailable JENNI, KEVIN Referring Unavailable JENNI, KEVIN Referring Unavailable JENNI, KEVIN Referring Unavailable JENNI, KEVIN Referring Unavailable SELLERS, ARAMIS Attending Unavailable KATKOHEMALATHA Referring Unavailable HORANI, DEJUAN Admitting Unavailable MOUKARBELLUISITO Referring Unavailable NESTOR, HEIDY Attending Unavailable HORANI, DEJUAN Admitting Unavailable JENNI, KEVIN Referring Unavailable EKWENNA, OBI Referring Unavailable EKWENNA, OBI Referring Unavailable CRISTOPHER, EMEKA Referring Unavailable JENNI, KEVIN Referring Unavailable JENNI, KEVIN Referring Unavailable JENNI, KEVIN Referring Unavailable JENNI, KEVIN Referring Unavailable JENNI, KEVIN Referring Unavailable CRISTOPHER, EMEKA Referring Unavailable JENNI, KEVIN Referring Unavailable JENNI, KEVIN Referring Unavailable CRISTOPHER, EMEKA Referring Unavailable WILLKATARZYNA Referring Unavailable HORANI, DEJUAN Admitting Unavailable LAURA, HANI Attending Unavailable AMERICO, BONAVENTURE Referring Unavailable AMERICO, BONAVENTURE Referring Unavailable MOUKARBELLUISITO Referring Unavailable HORANI, DEJUAN Referring Unavailable HORANI, DEJUAN Referring Unavailable ELTAHAWY, EHAB Attending Unavailable EKWENNA, OBI Attending Unavailable ELTAHAWY, EHAB Attending Unavailable KEVIN ARTEAGA Referring Unavailable KEVIN ARTEAGA Attending Unavailable TATIANNA HAYWARD Referring Unavailable VIJAY, PINKY Attending Unavailable KEVIN ARTEAGA Referring Unavailable CRISTOPHER, EMEKA Referring Unavailable CRISTOPHER, EMEKA Referring Unavailable CRISTOPHER, EMEKA Referring Unavailable CRISTOPHER, EMEKA Referring Unavailable TATIANNA HAYWARD Referring Unavailable JENNIKEVIN Molina Referring Unavailable JENNI, KEVIN Referring Unavailable KEVIN ARTEAGA Referring Unavailable Allergies Allergy Classification Reported Allergen(s) Allergy Type Date of Onset Reaction(s) Facility (1 source) 20128,00; Translations: [Unknown] Propensity to adverse reactions (disorder) 02-10-20 [facility] Repository (8 sources) semaglutide; Translations: [semaglutide] Allergy to substance 05-28-19 25 Gastrointestinal Upset [facility] Comment on above: constipation (1 source) No Known Medication Allergies; Translations: [No Known Medication Allergies] Propensity to adverse reactions (disorder) [facility] Repository Medications Current Medications Medication [...] six hours as needed for pain HYDROcodone-acetaminophen ([place]) 5-325 MG tablet TAKE 1 TABLET BY MOUTH EVERY 4 TO 6 HOURS NEEDED FOR PAIN 08/14/2022 Active amLODIPine 5 mg oral tablet (20 sources) Dihydropyridine Calcium Channel Jason Start: 08-25-2024 take 1 tablet by mouth once daily Amlodipine 5 mg tablet Active 5 MG PO Daily August 25, 2024 12:00am Start: 09-07-2021 take 1 tablet by [...] flash glucose sensor (FreeStyle Morris 2 Sensor) (9 sources) Start: 01-23-2024 flash glucose sensor (FreeStyle Morris 2 Sensor) Active .Route January 22, 2024 11:00pm Start: 01-23-2024 flash glucose sensor (FreeStyle Morris 2 Sensor) Active .Route January 23, 2024 12:00am Insulin Aspart U-100 (Novolo g Flexpen U-100 Insulin) 100 unit/mL (3 mL) insulin pen (20 sources) Start: 08-03-2024 Insulin Aspart U-100 (Novolog Flexpen U-100 Insulin) 100 unit/mL (3 mL) insulin pen Active 0 SUBCUT .COMPLEX August 03, 2024 10:17am 8-10-15-18 units according to meal size ac tid. Corrective scale 1:20 ac, tid (HS >200 1/2 dose) Subcutaneous ac, hs; (expect up to 40 units/day) Start: 10-17-2023 End: 08-03-2024 Insulin Aspart U-100 (Novolo g Flexpen U-100 Insulin) 100 unit/mL (3 mL) insulin pen Discontinued 0 SUBCUT .COMPLEX October 17, 2023 10:56am August 03, 2024 10:18am 6-8-10-12 units according to meal size ac [...] U-100) 100 unit/mL (3 mL) insulin pen (11 sources) Start: 08-03-2024 Insulin Deglud ec (Tresiba [...] pen Subcutaneous for 90 Active Humulin N (20 sources) Start: 09-07-2021 inject 15 [IU] by [...] PO Twice daily August 12, 2023 8:43am May 08, 2024 5:15pm Start: 06-22-2020 End: 01-17-2022 take 1 tablet [...] bid (titrate up to 40 units/day) Active levoFLOXacin 250 mg oral tablet (1 source) Quinolone Antimicrobial Start: 08-27-2024 Levofloxacin 250 mg tablet Active 0 PO Daily 15 August 27, 2024 12:00am 2 tablets PO on day one, followed by 1 tablet daily 3 ml liraglutide 6 mg/ml pen injector (20 sources) GLP-1 Receptor Agonist Start: 06-17-2024 End: [...] Orally Once a day Active Multivitamin tablet (3 sources) Start: 08-03-2024 take 1 tablet by mouth once daily in the morning Multivitamin tablet Active 1 TAB PO Every morning August 03, 2024 9:41am mupirocin 0.02 mg/mg topical ointment (3 sources) RNA Synthetase Inhibitor Antibacterial Start: 07-30-2024 Mupirocin [...] 2024 1:00am TAKE 1 TABLET BY MOUTH DAILY ON AN EMPTY STOMACH FOLLOWED BY BREAKFAST 30 MINUTES AFTER FOR 90 DAYS Start: 12-09-2023 End: 05-28-2024 take 1 tablet by mouth once daily at breakfast Pantoprazole 40 mg tablet,delayed release (DR/EC) Discontinued 0 .ROUTE .COMPLEX 90 December 09, 2023 8:47pm May 28, 2024 12:22pm TAKE 1 TABLET BY MOUTH DAILY ON AN EMPTY STOMACH FOLLOWED BY BREAKFAST 30 MINUTES AFTER FOR 90 DAYS Start: 07-10-2021 End: 12-09-2023 take 1 tablet by mouth once daily Pantoprazole 40 mg tablet,delayed release (DR/EC) Discontinued 40 MG PO Daily October 17, 2023 12:00am December 09, 2023 8:47pm 12 hr ranolazine 500 mg extended release oral tablet (10 sources) Anti-anginal Start: 02-24-2024 take 1 tablet by mouth twice daily Ranolazine 500 mg tablet extended release 12 hr Active 500 MG PO Twice daily February 24, 2024 1:00am rosuvastatin calcium 40 mg oral tablet (20 sources) HMG-CoA Reductase Inhibitor Start: 06-18-2023 take 1 tablet by mouth once daily at bedtime Rosuvastatin 40 mg tablet Active 40 MG PO Daily at bedtime June 18, 2023 12:00am take 1 tablet by bhavik th every twenty-four hours Rosuvastatin Calcium 40 MG 1 tablet Oral ly Once a day Active Ozempic (20 sources) Start: 09-29-2021 Ozempic qWeek, Refill(s) 0 Start Date: 09/29/21 Status: Ordered Start: 07-10-2021 End: 06-18-2023 Semaglutide (Ozempic) 0.25 m g or 0.5 mg(2 mg/1.5 mL) Pen Injector Discontinued 0.5 MG SUBCUT every week July 10, 2021 12:00am June 18, 2023 11:03am Saturday spironolactone 25 mg oral tablet (14 sources) Aldosterone Antagonist Start: 10-17-2023 take 1 tablet by mouth once daily in the morning Spironolactone 25 mg tablet Active 25 MG PO Every morning October 17, 2023 12:00am thiamine 100 mg [...] tablet (20 sources) Benzodiazepine Start: 06-22-2020 End: 08-16-2024 take 1 tablet by mouth three times daily as needed for anxiety Alprazolam 0.5 mg tablet Discontinued 0.5 MG PO Three times daily as needed for anxiety 90 February 09, 2024 9:29pm August 16, 2024 5:16pm Comment on above: Take 0.5 mg by mouth at bedtime as needed. amoxicillin 875 mg / clavulanate 125 mg oral tablet (17 sources) Penicillin-class Antibacterial Start: 06-24-2020 End: 07-11-2020 [...] procedure, # 2 tab(s), Refills(s) 0, Pharmacy: [facility]/pharmacy #[id number], 169, cm, 08/03/24 13:56:00 EDT, [...] MG PO Daily June 18, 2023 12:00am January 23, 2024 10:02am empagliflozin (J ARDIANCE) 25 mg tablet q [...] Insulin) 100 unit/mL (3 mL) Insulin Pen (17 sources) Start: End: 4 inject 5 [IU] [...] on above: Take by mouth. Multivitamin Tablet (8 sources) Start: 01-15-2022 End: 08-03-2024 take 1 [...] day Not-Taking/PRN predniSONE 20 mg oral tablet (17 sources) Start: 06-24-2020 End: 07-11-2020 take 2 tablets by mouth once daily Prednisone 20 mg tablet Discontinued 40 MG PO Daily 18 01June 24, 2020 12:00am July 11, 2020 5:52pm Start: 06-24-2020 End: 07-11-2020 take 40 mg by mouth once daily Prednisone Discontinued 40 MG PO Daily 20 10 June 24, 2020 12:00am July 11, 2020 [...] tablet Orally Twice a day Not-Taking/PRN Semaglutide (15 sources) Start: 06-18-2023 End: 06-18-2023 inject 1 [...] 2023 11:15am ticagrelor 90 mg oral tablet (17 sources) Start: 07-13-2020 End: 07-10-2021 take 1 tablet by mouth twice daily Ticagrelor (Brilinta) 90 mg Tablet Discontinued 90 MG PO Twice daily 180 90 July 13, 2020 12:00am July 10, 2021 9:59am triamcinolone acetonide 0.65035 mg/mg topical ointment (1 source) Corticosteroid triamcinolone [...] Onset: 1 Resolved: 2 Episodic Anxiety disorders (15 sources) Generalized anxiety disorder; Translations: [Generalized anxiety [...] [Presence of cardiac pacemaker] Onset: 2 Chronic Comment on above: PPM 03/2022, BiV ICD 01/2023 Congestive heart failure; nonhypertensive (20 sources) Acute on chronic systolic (congestive) heart failure; Translations: [Acute on chronic combined systolic (congestive) and diastolic (congestive) heart failure] Onset: 2 Chronic Comment on above: Echo: LVEF 25%, LVH, normal RV size/function - 01/2024 Echo: LVEF 25%, LVH, normal RV size/function - 01/2024,Echo: LVEF 25%, LVH, normal RV size/function - 07/2024,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-D 01/2023 Coronary atherosclerosis and other heart disease (20 sources) Multi vessel coronary artery disease; Translations: [Atherosclerotic heart disease of [place] coronary artery without angina pectoris] Onset: 3 09-07-2021 Chronic Comment on above: CABG x 5 - 1995PCI/s tent x 6 CABG x 5 - 1995PCI/s tent x 8 CABG x 5 - 1995,PCI/ stent x 8,Patent SVG x3 and MENJIVAR to LAD, no intervention - 01/2024,PCI/stent SVG to PDA - 09/2023,Stress Test: anterior reversible defect - 07/2024 Deficiency and other anemia (20 sources) Anemia [...] Resolved: 2 Chronic Fluid and electrolyte disorders (11 sources) Dehydration; Translations: [Hyperkalemia] Onset: 2 07-14-2024 [...] sources) Long-term current use of insulin; Translations: [senior living (current) use of insulin] Episodic Other aftercare (11 sources) senior living (current) use of insulin; Translations: [senior living current use of insulin Z79.4] Onset: 1 [...] urinary bladder 08-03-2024 Chronic Other diseases of bladder and urethra (2 sources) Bladder disorder, unspecified; Translations: [Bladder disorder, unspecified] Onset: 5 Chronic Other diseases of bladder and urethra (2 sources) Other specified disorders of bladder; Translations: [Other specified disorders of bladder] Onset: 5 Chronic Other diseases of kidney and ureters (20 sources) Secondary hyperparathyroidism; Translations: [Secondary hyperparathyroidism of renal origin] 06-30-2023 Chronic Other diseases of kidney and ureters (15 sources) Secondary hyperparathyroidism of renal origin; Translations: [Secondary hyperparathyroidism (of renal origin)] Chronic Other gastrointestinal disorders (3 sources) Irritable bowel syndrome 09-07-2021 Chronic Other gastrointestinal disorders (16 sources) Constipation; Translations: [Constipation, unspecified] Episodic Other hematologic conditions (1 source) Raised cardiac enzyme or marker; Translations: [Other specified abnormalities of plasma proteins] 07-11-2020 Episodic Other lower respiratory disease (17 sources) Hypoxia; Translations: [Hypoxemia] 06-22-2020 Episodic Other lower respiratory disease (20 sources) Other nonspecific abnormal finding of lung field; Translations: [Ground glass opacity present on imaging of lung] Onset: 2 Episodic Other lower respiratory disease (20 sources) Solitary pulmonary nodule; Translations: [Solitary pulmonary [...] Chronic Other nutritional; endocrine; and metabolic disorders (3 sources) Body mass index (BMI) 31.0-31.9, adult; Translations: [Body Mass Index 31.0-31.9, adult] Onset: 1 Resolved: 1 Chronic Other nutritional; [...] nutritional; endocrine; and metabolic disorders (20 sources) Overweight in adulthood with body mass [...] [Patient encounter status] Onset: 4 09-07-2021 Episodic Comment on above: PSA: 37 - 07/2023 Other skin disorders (2 sources) Asteatosis cutis; Translations: [Xerosis cutis] 01-23-2024 Episodic Other skin disorders (2 sources) Changes in skin texture; Translations: [Changes in skin texture] 08-03-2024 Episodic Jolene-; endo-; and myocarditis; cardiomyopathy (except [...] Unclassified (2 sources) Patient encounter status 08-03-2024 Urinary tract infections (2 sources) Urinary tract infection, site not specified; Translations: [Urinary tract infection, site not specified] Onset: Episodic Past or Other Problems Problem Classification Problem [...] 10-12-2022 10-12-2022 Episodic Other aftercare (1 source) senior living (current) use of aspirin; Translations: [[facility] CURRENT USE OF ASPIRIN] Onset: 04-03-2022 Episodic Other aftercare (1 source) Other cosmetic maker (current) drug therapy; Translations: [OTH REALTIME CAPTIONER CURRENT DRUG THERAPY] Onset: 04-03-2022 Episodic Other [...] Test Name Value Interpretation Reference Range Facility Orders Onlyon 09-02-2024 Orders Only [id number] Lani Lizama 1950 M Date Provider Department [place] 09/02/2024 Iliana-LATONYA RAMESH [facility] Medical C Family History Problem Relation Age of Onset Heart attack Mother Other Father Other Brother Heart attack Maternal Grandmother Heart attack Maternal Grandfather Family Status - Relation Status Age at Mother Father Brother Maternal Grandmother Maternal Grandfather Normal [facility] APTTon 08-28-2024 ACTIVATED PARTIAL THROMBOPLASTIN TIME IN PPP BY COAGULATION ASSAY 29.3 Seconds Normal 25.0-35.0 [facility] Comment on above: Result Comment: Clin ical significance of the APTT is questionable in the presence of heparin. Performed By: #### L [id number] #### [facility] ([facility]) [address] [place] [address] CBC WITH AUTO DIFFERENTIALon 08-28-2024 Basophils (Bld) [#/Vol] 0.09 10*3/uL Normal 0.00-0.20 [facility] Comment on above: Performed By: #### L [id number] #### [facility] ([facility]) [address] [place] [address] Basophils/100 WBC (Bld) 0.9 % Normal 0.0-1.0 [facility] Comment on above: Performed By: #### L [id number] #### [facility] ([facility]) [address] [place] [address] Eosinophils (Bld) [#/Vol] 0.17 10*3/uL Normal 0.00-0.50 [facility] Comment on above: Performed By: #### L [id number] #### [facility] (BEAK[facility]) [address] [place] [address] Eosinophils/100 WBC (Bld) 1.8 % Normal 0.0-6.0 [facility] Comment on above: Performed By: #### L [id number] #### [facility] ([facility]) [address] [place] [address] Erythrocyte distribution width (RBC) [Ratio] 14.1 % Normal 11.5-15.0 [facility] Comment on above: Performed By: #### L [id number] #### [facility] ([facility]) [address] [place] [address] ERYTHROCYTE MEAN CORPUSCULAR HEMOGLOBIN CONCENTRATION (G/DL) BY AUTOMATED 32.1 g/dL Normal 32.0-35.0 [facility] Comment on above: Performed By: #### L [id number] #### [facility] ([facility]) [address] [place] [address] Hematocrit (Bld) [Volume fraction] 44.8 % Normal 39.0-50.0 [facility] Comment on above: Performed By: #### L [id number] #### [facility] ([facility]) [address] [place] [address] Hemoglobin (Bld) [Mass/Vol] 14.4 g/dL Normal 13.0-17.0 [facility] Comment on above: Performed By: #### L [id number] #### [facility] (BEAKER) [address] [place] [address] Immature granulocytes (Bld) [#/Vol] 0.06 10*3/uL Normal 0.00-0.20 [facility] Comment on above: Performed By: #### L [id number] #### [facility] (BEAKER) [address] [place] [address] Immature granulocytes/100 WBC (Bld) 0.6 % Normal 0.0-1.0 [facility] Comment on above: Performed By: #### L [id number] #### [facility] (BE[facility]) [address] [place] [address] Lymphocytes (Bld) [#/Vol] 1.81 10*3/uL Normal 1.20-4.00 [facility] Comment on above: Performed By: #### L [id number] #### [facility] (BEAKER) [address] [place] [address] Lymphocytes/100 WBC (Bld) 18.9 % Low 20.0-45.0 [facility] Comment on above: Performed By: #### L [id number] #### [facility] (BE[facility]ER) [address] [place] [address] MCH (RBC) [Entitic mass] 29.2 pg Normal 27.0-33.0 [facility] Comment on above: Performed By: #### L [id number] #### [facility] (BEAKER) [address] [place] [address] MCV (RBC) [Entitic vol] 90.9 fL Normal 82.0-98.0 [facility] Comment on above: Performed By: #### L [id number] #### [facility] ([facility]) [address] [place] [address] Monocytes (Bld) [#/Vol] 0.76 10*3/uL Normal 0.10-1.00 [facility] Comment on above: Performed By: #### L [id number] #### [facility] (BE[facility]ER) [address] [place] [address] Monocytes/100 WBC (Bld) 7.9 % Normal 5.0-12.0 [facility] Comment on above: Performed By: #### L [id number] #### [facility] (BE[facility]ER) [address] [place] [address] Neutrophils (Bld) [#/Vol] 6.71 10*3/uL Normal 1.60-7.60 [facility] Comment on above: Performed By: #### L [id number] #### [facility] (BEAKER) [address] [place] [address] Neutrophils/100 WBC (Bld) 69.9 % Normal 40.0-72.0 [facility] Comment on above: Performed By: #### L [id number] #### [facility] ([facility]) [address] [place] [address] NRBC (PER 100 WBCS) BY AUTOMATED COUNT 0.0 % Normal 0 [facility] Comment on above: Performed By: #### L [id number] #### [facility] ([facility]) [address] [place] [address] PLATELETS (10*3/UL) IN BLOOD AUTOMATED COUNT 278 10*3/uL Normal 150-400 [facility] Comment on above: Performed By: #### L [id number] #### [facility] ([facility]) [address] [place] [address] RBC (Bld) [#/Vol] 4.93 10*6/uL Normal 4.20-5.70 [facility] Comment on above: Performed By: #### L [id number] #### [facility] ([facility]) [address] [place] [address] WBC (Bld) [#/Vol] 9.60 10*3/uL Normal 4.00-10.60 [facility] Comment on above: Performed By: #### L [id number] #### [facility] ([facility]) [address] [place] [address] COMPREHENSIVE METABOLIC PANE Mike 08-28-2024 Albumin [Mass/Vol] 4.5 g/dL Normal 3.5-5.7 [facility] Comment on above: Performed By: #### L [id number] #### [facility] ([facility]) [address] [place] [address] ALP [Catalytic activity/Vol] 117 U/L High 34-104 [facility] Comment on above: Performed By: #### L [id number] #### [facility] [address] [place] [address] ALT [Catalytic activity/Vol] 17 U/L Normal 7-52 [facility] Comment on above: Performed By: #### L [id number] #### [facility] ([facility]) [address] [place] [address] Anion gap [Moles/Vol] 11 mmol/L Normal 7-20 [facility] Comment on above: Performed By: #### L [id number] #### [facility] ([facility]) [address] [place] [address] AST [Catalytic activity/Vol] 20 U/L Normal 13-39 [facility] Comment on above: Performed By: #### L [id number] #### [facility] ([facility]) [address] [place] [address] Bilirubin [Mass/Vol] 0.6 mg/dL Normal 0.3-1.0 [facility] Comment on above: Performed By: #### L [id number] #### [facility] ([facility]) [address] [place] [address] Calcium [Mass/Vol] 9.6 mg/dL Normal 8.6-10.3 [facility] Comment on above: Performed By: #### L [id number] #### [facility] ([facility]) [address] [place] [address] Chloride [Moles/Vol] 105 mmol/L Normal 98-107 [facility] Comment on above: Performed By: #### L [id number] #### [facility] ([facility]) [address] [place] [address] CO2 [Moles/Vol] 28 mmol/L Normal 21-31 [facility] Comment on above: Performed By: #### L [id number] #### [facility] ([facility]) [address] [place] [address] Creatinine [Mass/Vol] 1.95 mg/dL High 0.70-1.30 [facility] Comment on above: Performed By: #### L [id number] #### [facility] ([facility]) [address] [place] [address] GLOMERULAR FILTRATION RATE ML/MIN/1.73 SQ M.PREDICTED 35.9 mL/min/1.73m*2 Low >60.0 [facility] Comment on above: Result Comment: [facility]???s estimated glomerular filtration rate (eGFR) [...] group of individuals. Performed By: #### L [id number] #### [facility] ([facility]) [address] [place] [address] Glucose [Mass/Vol] 185 mg/dL High 70-100 [facility] Comment on above: Performed By: #### L [id number] #### [facility] ([facility]) [address] [place] [address] Potassium [Moles/Vol] 5.9 mmol/L High 3.5-5.1 [facility] Comment on above: Performed By: #### L [id number] #### [facility] ([facility]) [address] [place] [address] Protein [Mass/Vol] 7.7 g/dL Normal 6.0-8.3 [facility] Comment on above: Performed By: #### L [id number] #### [facility] ([facility]) [address] [place] [address] Sodium [Moles/Vol] 138 mmol/L Normal 136-145 [facility] Center Comment on above: Performed By: #### L [id number] #### [facility] ([facility]) [address] [place] [address] Urea nitrogen [Mass/Vol] 30 mg/dL High 7-25 [facility] Comment on above: Performed By: #### L [id number] #### [facility] (BEAKER) [address] [place] [address] UREA NITROGEN/CREATININE (MASS RATIO) IN SER/PLAS 15.4 Normal [facility] Comment on above: Performed By: #### L [id number] #### [facility] (BEAKER) [address] [place] [address] Labon 08-28-2024 Lab [id number] Lani Lizama 1950 M Date Provider Department Center 08/28/2024 2245-[facility] OPD LAB RESOURCE [facility] OPD [facility] C Family History Problem Relation Age of Onset Heart attack Mother Other Father Other Brother Heart attack Maternal Grandmother Heart attack Maternal Grandfather Family Status - Relation Status Age at Mother Father Brother Maternal Grandmother Maternal Grandfather Normal [facility] Office Visiton 08-28-2024 Follow-up visit [id number] Lani Lizama 1950 M Date Provider Department Center 08/28/2024 [id number], OBI [facility] URO Second Fl Family History Problem Relation Age of Onset Heart attack Mother Other Father Other Brother Heart attack Maternal Grandmother Heart attack Maternal Grandfather Family Status - Relation Status Age at Mother Father Brother Maternal Grandmother Maternal Grandfather Level of Service:40347 MT OFFICE/OUTPATIENT ESTABLISHED MOD MDM 30 MIN Normal [facility] PROTIME-INRon 08-28-2024 INR IN PPP BY COAGULATION ASSAY 1.10 Normal 0.90-1.10 [facility] Comment on above: [...] 1995;[id number]. Performed By: #### L [id number] #### [facility] ([facility]) [address] [place] [address] PROTHROMBIN TIME (PT) IN PPP BY COAGULATION ASSAY 14.2 Seconds Normal 12.3-14.8 [facility] Comment on above: Performed By: #### L [id number] #### [facility] ([facility]) [address] [place] [address] PSA, SCREENINGon 08-28-2024 PROSTATE SPECIFIC AG (NG/ML) IN SER/PLAS 1.5 ng/mL Normal 0.4-4 [facility] Comment on above: Performed By: #### L [id number] #### [facility] ([facility]) [address] [place] [address] URINE CULTURE, ROUTINEon Bacteria identified Cx Nom (U) <10,000 CFU/ML No Significant Growth Normal [facility] Comment on above: Performed By: #### L [id number] ####[facility] ([facility])[address] [place] [address] Laboratory - Chemistry and C hemistry - challengeon 08-27-2024 Bilirubin Ql (U) Negative NEGATIVE [facility] Glucose (U) [Mass/Vol] mg/dL Abnormal NEGATIVE [facility] Ketones Ql (U) Negative NEGATIVE [facility] pH (U) 6.0 [pH] 5.0-9.0 [facility] Specific gravity (U) [Rel density] 1.025 1.005-1.02 5 [facility] Urobilinogen Qn (U) 1.0 {Luisito'U}/dL 0.2-1.0 [facility] Laboratory - Specimen inform ationon 08-27-2024 Appearance (U) SL CLOUDY CLEAR [facility] Color (U) YELLOW YELLOW [facility] Laboratory - Urinalysison Leukocyte esterase Test strip Ql (U) MODERATE Abnormal NEGATIVE [facility] Nitrite Ql (U) Negative NEGATIVE [facility] Protein Ql (U) >=300 mg/dL Abnormal NEG/TRACE [facility] No Panel Informationon 08-27 Urine Occult Blood LARGE Abnormal NEGATIVE [facility] Urine Cultureon 08-27-2024 Bacteria identified Cx Nom (U) <9,000 colonies/ml mixed bacterial skin contaminants 2 Days PERFORMED BY: [place] [address] PATHOLOGIST DROP WIRE STRINGER CARSON ADAMES M.D. Normal [facility] Comment on above: Performed By: #### C UU #### [address] Office Visiton 08-20-2024 Follow-up visit [id number] Lani Lizama 1950 M Date Provider Department Center 08/20/2024 Scott-[facility] CARD Luis Enrique Hos Family History Problem Relation Age of Onset Heart attack Mother Other Father Other Brother Heart attack Maternal Grandmother Heart attack Maternal Grandfather Family Status - Relation Status Age at Mother Father Brother Maternal Grandmother Maternal Grandfather Level of Service:52292 MT OFFICE/OUTPATIENT ESTABLISHED MOD MDM 30 MIN Normal [facility] 30on 08-14-2024 30 The patient is Moder [...] hemodynamic stability Outcome: Adequate for Discharge Normal [facility] 30 Lexiscan stress test Patient information sheet [...] and hemodynamically stable Full final report from perch machine inspector to follow. Juli Salazar RN [facility] Cardiovascular Stress Lab Normal [facility] HIGH SENSITIVITY TROPONIN Io n 08-14-2024 HS TROPONIN I (NG/L) 160 ng/L Critically high <20 [facility] Comment on above: Performed By: #### L [id number] #### [facility] ([employer]) [address] [facility] [address] NURSNOTEon 08-14-2024 NURSNOTE Patient off the unit at 8:23 am for ECHO and stress test, returned to unit at 12:05 pm. Normal [facility] Orders Onlyon 08-14-2024 Orders Only [id number] Lani Lizama 1950 M Date Provider Department Center 08/14/2024 KEVIN DEMPSEY [facility] CARD CA HeartVAS Family History Problem Relation Age of Onset Heart attack Mother Other Father Other Brother Heart attack Maternal Grandmother Heart attack Maternal Grandfather Family Status - Relation Status Age at Mother Father Brother Maternal Grandmother Maternal Grandfather Normal [facility] POCT GLUCOSE METER UNSOLICIT ED RESULTSon 08-14-2024 Glucose [Mass/Vol] 155 mg/dL High 70-105 [facility] Comment on above: Order Comment: Waive d Testing in the ED is performed under the ED CLIA certificate #[id number]. Result Comment: dcun dic Performed By: #### L [id number] #### [facility] ([employer]) [address] [place] [address] Glucose [Mass/Vol] 251 mg/dL High 70-105 [facility] Comment on above: Order Comment: Waive d Testing in the ED is performed under the ED CLIA certificate #[id number]. Result Comment: jdlu gol Performed By: #### L [id number] #### [facility] ([employer]) [address] [facility] [place] [address] Glucose [Mass/Vol] 187 mg/dL High 70-105 [facility] Comment on above: Order Comment: Waive d Testing in the ED is performed under the ED CLIA certificate #[id number]. Result Comment: jdlu gol Performed By: #### L [id number] ####[facility] (BEAKER)[address] [place] [address] 30on 08-13-2024 30 The patient is Moder [...] and behaviors that affect risk of falls [place] fall precautions as indicated by assessment Educate [...] dysrhythmias or at baseline Outcome: Progressing Normal [facility] Basophils Auto (Bld) [#/Vol] on 08-13-2024 Basophils (Bld) [#/Vol] Automated basophil count 0.0-0.1 [facility] Basophils/100 WBC Auto (Bld) on 08-13-2024 Basophils/100 WBC (Bld) Automated basophil % 0.2-2.0 [facility] CBC WITH AUTO DIFFERENTIALon 08-13-2024 Basophils (Bld) [#/Vol] 0.05 10*3/uL Normal 0.00-0.20 [facility] Comment on above: Performed By: #### L [id number] #### [facility] (BEAKER) [address] [place] [address] Basophils/100 WBC (Bld) 0.7 % Normal 0.0-1.0 [facility] Comment on above: Performed By: #### L [id number] #### [facility] (BEAKER) [address] [place] [address] Eosinophils (Bld) [#/Vol] 0.14 10*3/uL Normal 0.00-0.50 [facility] Comment on above: Performed By: #### L [id number] #### [facility] (BEAKER) [address] [place] [address] Eosinophils/100 WBC (Bld) 1.8 % Normal 0.0-6.0 [facility] Comment on above: Performed By: #### L [id number] #### [facility] (BEAKER) [address] [place] [address] Erythrocyte distribution width (RBC) [Ratio] 14.6 % Normal 11.5-15.0 [facility] Comment on above: Performed By: #### L [id number] #### [facility] (BEAKER) [address] [place] [address] ERYTHROCYTE MEAN CORPUSCULAR HEMOGLOBIN CONCENTRATION (G/DL) BY AUTOMATED 32.9 g/dL Normal 32.0-35.0 [facility] Comment on above: Performed By: #### L [id number] #### [facility] (BEAKER) [address] [place] [address] Hematocrit (Bld) [Volume fraction] 39.8 % Normal 39.0-50.0 [facility] Comment on above: Performed By: #### L [id number] #### [facility] (BEAKER) [address] [place] [address] Hemoglobin (Bld) [Mass/Vol] 13.1 g/dL Normal 13.0-17.0 [facility] Comment on above: Performed By: #### L [id number] #### [facility] (BEAKER) [address] [place] [address] Immature granulocytes (Bld) [#/Vol] 0.03 10*3/uL Normal 0.00-0.20 [facility] Comment on above: Performed By: #### L [id number] #### [facility] [address] [place] [address] Immature granulocytes/100 WBC (Bld) 0.4 % Normal 0.0-1.0 [facility] Comment on above: Performed By: #### L [id number] #### [facility] ([facility]) [address] [place] [address] Lymphocytes (Bld) [#/Vol] 1.51 10*3/uL Normal 1.20-4.00 [facility] Comment on above: Performed By: #### L [id number] #### [facility] [address] [place] [address] Lymphocytes/100 WBC (Bld) 19.8 % Low 20.0-45.0 [facility] Comment on above: Performed By: #### L [id number] #### [facility] [address] [place] [address] MCH (RBC) [Entitic mass] 29.3 pg Normal 27.0-33.0 [facility] Comment on above: Performed By: #### L [id number] #### [facility] (BEAKER) [address] [place] [address] MCV (RBC) [Entitic vol] 89.0 fL Normal 82.0-98.0 [facility] Comment on above: Performed By: #### L [id number] #### [facility] (BEAKER) [address] [place] [address] Monocytes (Bld) [#/Vol] 0.57 10*3/uL Normal 0.10-1.00 [facility] Comment on above: Performed By: #### L [id number] #### [facility] ([facility]) [address] [place] [address] Monocytes/100 WBC (Bld) 7.5 % Normal 5.0-12.0 [facility] Comment on above: Performed By: #### L [id number] #### [facility] ([facility]) [address] [place] [address] Neutrophils (Bld) [#/Vol] 5.32 10*3/uL Normal 1.60-7.60 [facility] Comment on above: Performed By: #### L [id number] #### [facility] ([facility]) [address] [place] [address] Neutrophils/100 WBC (Bld) 69.8 % Normal 40.0-72.0 [facility] Comment on above: Performed By: #### L [id number] #### [facility] ([facility]) [address] [place] [address] NRBC (PER 100 WBCS) BY AUTOMATED COUNT 0.0 % Normal 0 [facility] Comment on above: Performed By: #### L [id number] #### [facility] ([facility]) [address] [place] [address] PLATELETS (10*3/UL) IN BLOOD AUTOMATED COUNT 201 10*3/uL Normal 150-400 [facility] Comment on above: Performed By: #### L [id number] #### [facility] ([facility]) [address] [place] [address] RBC (Bld) [#/Vol] 4.47 10*6/uL Normal 4.20-5.70 [facility] Comment on above: Performed By: #### L [id number] #### [facility] [address] [place] [address] WBC (Bld) [#/Vol] 7.62 10*3/uL Normal 4.00-10.60 [facility] Comment on above: Performed By: #### L [id number] #### [facility] ([facility] [address] [place] [address] COMPREHENSIVE METABOLIC PANE Mike 08-13-2024 Albumin [Mass/Vol] 4.3 g/dL Normal 3.5-5.7 [facility] Comment on above: Performed By: #### L [id number] #### [facility] ([facility]) [address] [place] [address] ALP [Catalytic activity/Vol] 90 U/L Normal 34-104 [facility] Comment on above: Performed By: #### L [id number] #### [facility] ([facility]) [address] [place] [address] ALT [Catalytic activity/Vol] 15 U/L Normal 7-52 [facility] Comment on above: Performed By: #### L [id number] #### [facility] ([facility]) [address] [place] [address] Anion gap [Moles/Vol] 13 mmol/L Normal 7-20 [facility] Comment on above: Performed By: #### L [id number] #### [facility] [address] [place] [address] AST [Catalytic activity/Vol] 27 U/L Normal 13-39 [facility] Comment on above: Performed By: #### L [id number] #### [facility] ([facility]) [address] [place] [address] Bilirubin [Mass/Vol] 0.7 mg/dL Normal 0.3-1.0 [facility] Comment on above: Performed By: #### L [id number] #### [facility] [address] [place] [address] Calcium [Mass/Vol] 9.1 mg/dL Normal 8.6-10.3 [facility] Comment on above: Performed By: #### L [id number] #### [facility] (BEAKER) [address] [place] [address] Chloride [Moles/Vol] 108 mmol/L High 98-107 [facility] Comment on above: Performed By: #### L [id number] #### [facility] [address] [place] [address] CO2 [Moles/Vol] 21 mmol/L Normal 21-31 [facility] Comment on above: Performed By: #### L [id number] #### [facility] [address] [place] [address] Creatinine [Mass/Vol] 1.63 mg/dL High 0.70-1.30 [facility] Comment on above: Performed By: #### L [id number] #### [facility] ([facility]) [address] [place] [address] GLOMERULAR FILTRATION RATE ML/MIN/1.73 SQ M.PREDICTED 44.5 mL/min/1.73m*2 Low >60.0 [facility] Comment on above: Result Comment: [facility]???s estimated glomerular filtration rate (eGFR) [...] individuals. Performed By: #### L [id number] #### [facility] [address] [place] [address] Glucose [Mass/Vol] 165 mg/dL High 70-100 [facility] Comment on above: Performed By: #### L [id number] #### [facility] ([facility] [address] [place] [address] Potassium [Moles/Vol] 4.7 mmol/L Normal 3.5-5.1 [facility] Comment on above: Performed By: #### L [id number] #### [facility] ([facility]) [address] [place] [address] Protein [Mass/Vol] 7.2 g/dL Normal 6.0-8.3 [facility] Comment on above: Performed By: #### L [id number] #### [facility] ([facility]) [address] [place] [address] Sodium [Moles/Vol] 137 mmol/L Normal 136-145 [facility] Comment on above: Performed By: #### L [id number] #### [facility] ([facility]) [address] [place] [address] Urea nitrogen [Mass/Vol] 26 mg/dL High 7-25 [facility] Comment on above: Performed By: #### L [id number] #### [facility] ([facility]) [address] [place] [address] UREA NITROGEN/CREATININE (MASS RATIO) IN SER/PLAS 16.0 Normal [facility] Comment on above: Performed By: #### L [id number] #### [facility] ([facility]) [address] [place] [address] CONSULTon 08-13-2024 CONSULT ----- ----- Attestation signed by Tatianna Hayward MD at 08/13/2024 7:18 PM I personally spoke with and examined Mr. Lizama with Dr. Pagan today. I then spoke with his perch machine inspector Dr. Bishop about his longitudinal care. At [...] mildly elevated troponin. Patient was transferred to [facility] for further evaluation and treatment. [...] (1000 unit (more content not included)... Normal [facility] Eosinophils/100 WBC Auto (Bl d)on 08-13-2024 Eosinophils/100 WBC (Bld) Automated eosinophil % 0.9-7.0 [facility] Erythrocyte distribution wid th Auto (RBC) [Ratio]on 08-13-2024 Erythrocyte distribution width (RBC) [Ratio] Erythrocyte distribution width [Ratio] by Automated count 11.0-15.0 [facility] Estimated glomerular filtrat ion rate (GFR) non- Americanon 08-13-2024 GFR/1.73 sq M.predicted among non-blacks MDRD (S/P/Bld) [Vol rate/Area] Estimated glomerular filtration rate (GFR) non- Low >=60 mL/min/1.7 3m 2 [facility] Fibrin D-dimer [Presence] in Platelet poor plasma by Latex agglutinationon 08-13-2024 Fibrin D-dimer LA Ql (PPP) Fibrin D-dimer [Presence] in Platelet poor plasma by Latex agglutination Critically high <=0.59 [facility] Comment on above: RESULTS CALLED TO PAVEL FENTON RN @BY Chelsey Forbes at 0051Increases in D-Dimer concentration observed withthromboembolic events can be variable due to localization,size, and age of the thrombus. Therefore, a thromboembolicevent cannot be diagnosed with certainty on the basis of thereference range. D-Dimers may also be elevated for a varietyof disorders including advanced age, , coronarydisease, cancer, liver disease, infection, inflammation,hematoma, DIC, trauma, post-surgery, diabetes, thrombolyticor anticoagulant therapy, stress, and generalizedhospitalization. HIGH SENSITIVITY TROPONIN Io n 08-13-2024 HS TROPONIN I (NG/L) 294 ng/L Critically high <20 [facility] Comment on above: Performed By: #### L [id number] #### [facility] (BEAKER) [address] [place] [address] Hematocrit Auto (Bld) [Volum e fraction]on 08-13-2024 Hematocrit (Bld) [Volume fraction] Hematocrit [Volume Fraction] of Blood by Automated count Low 42.0-54.0 [facility] Hemoglobin [Mass/volume] in Bloodon 08-13-2024 Hemoglobin (Bld) [Mass/Vol] Hemoglobin [Mass/volume] in Blood Low 14.0-18.0 [facility] Laboratory - Chemistry and C hemistry - challengeon 08-13-2024 Calcium [Mass/Vol] 9.3 mg/dL 8.5-10.1 [facility] Chloride [Moles/Vol] 103 mmol/L 98-107 [facility] CO2 [Moles/Vol] 24.4 mmol/L 21.0-32.0 [facility] Creatinine [Mass/Vol] 2.02 mg/dL High 0.70-1.30 [facility] GFR/1.73 sq M.predicted MDRD (S/P/Bld) [Vol rate/Area] 40 mL/min/{1.73_m2} Low >=60 mL/min/1.7 3m 2 [facility] Glucose [Mass/Vol] 310 mg/dL High 74-106 [facility] Potassium [Moles/Vol] 3.9 mmol/L 3.5-5.1 [facility] Sodium [Moles/Vol] 137 mmol/L 136-145 [facility] Urea nitrogen [Mass/Vol] 29.0 mg/dL High 7.0-18.0 [facility] Urea nitrogen/Creatinine [Mass ratio] 14.4 mg/mg [facility] Laboratory - Hematology and Cell countson 08-13-2024 Immature granulocytes/100 WBC (Bld) 0.5 % 0.0-0.5 [facility] Leukocytes [#/volume] correc soraya for nucleated erythrocytes in Blood by Automated counon 08-13-2024 WBC corrected for nucl RBC Auto (Bld) [#/Vol] Leukocytes [#/volume] corrected for nucleated erythrocytes in Blood by Automated coun 4.0-11.0 [facility] Lymphocytes Auto (Bld) [#/Vo l]on 08-13-2024 Lymphocytes (Bld) [#/Vol] Lymphocytes [#/volume] in Blood by Automated count 1.2-3.8 [facility] Lymphocytes/100 WBC Auto (Bl d)on 08-13-2024 Lymphocytes/100 WBC (Bld) Lymphocytes/100 leukocytes in Blood by Automated count 20.5-60.0 [facility] MAGNESIUMon 08-13-2024 Magnesium [Mass/Vol] 1.9 mg/dL Normal 1.9-2.7 [facility] Comment on above: Performed By: #### L [id number] #### [facility] (BEAKER) [address] [place] [address] MCH Auto (RBC) [Entitic mass ]on 08-13-2024 MCH (RBC) [Entitic mass] MCH [Entitic mass] by Automated count 25.9-34.0 [facility] MCHC Auto (RBC) [Mass/Vol]on 08-13-2024 MCHC (RBC) [Mass/Vol] MCHC [Mass/volume] by Automated count 29.9-35.2 [facility] MCV Auto (RBC) [Entitic vol] on 08-13-2024 MCV (RBC) [Entitic vol] MCV [Entitic volume] by Automated count 80.0-94.0 [facility] Monocytes Auto (Bld) [#/Vol] on 08-13-2024 Monocytes (Bld) [#/Vol] Automated blood monocyte count High 0.3-0.8 [facility] Monocytes/100 WBC Auto (Bld) on 08-13-2024 Monocytes/100 WBC (Bld) Automated monocyte % 1.7-12.0 [facility] Neutrophils Auto (Bld) [#/Vo l]on 08-13-2024 Neutrophils (Bld) [#/Vol] Neutrophils [#/volume] in Blood by Automated count 1.4-6.5 [facility] Neutrophils/100 WBC Auto (Bl d)on 08-13-2024 Neutrophils/100 WBC (Bld) Automated neutrophil % 43.0-75.0 [facility] No Panel Informationon 08-13 Troponin I High Sensitivity 228.4 pg/mL Critically high 4.0-76.1 [facility] Comment on above: RESULTS CALLED TO YNES JOLLY RN @BY Chelsey Logan 0400CUT-OFF POINTS HAVE BEEN ESTABLISHED BASED ON THE [...] Eosinophils # (Auto) 0.2 10 3/uL 0.0-0.7 [facility] Immature Granulocyte # (Auto) 0.04 10 3/uL High 0.00-0.03 [facility] PHOSPHORUSon 08-13-2024 Magnesium [Mass/Vol] 3.6 mg/dL Normal 2.5-5.0 [facility] Comment on above: Performed By: #### L [id number] #### [facility] (BEAKER) [address] [place] [address] POCT GLUCOSE METER UNSOLICIT ED RESULTSon 08-13-2024 Glucose [Mass/Vol] 104 mg/dL Normal 70-105 [facility] Comment on above: Order Comment: Waive d Testing in the ED is performed under the ED CLIA certificate #[id number]. Result Comment: [email or web address] Performed By: #### L [id number] ####[facility] (BEAKER)[address] [place] [address] Glucose [Mass/Vol] 207 mg/dL High 70-105 [facility] Comment on above: Order Comment: Check anti-Xa level every 6 hours while on heparin infusion, or per protocol. Result Comment: calvin gol Performed By: #### L [id number] #### [facility] (BEAKER) [address] [place] [address] Glucose [Mass/Vol] 160 mg/dL High 70-105 [facility] Comment on above: Order Comment: Waive d Testing in the ED is performed under the ED CLIA certificate #[id number]. Result Comment: [email or web address] gol Performed By: #### L [id number] #### [facility] (BEAKER) [address] [place] [address] Platelet mean volume Auto (B ld) [Entitic vol]on 08-13-2024 Platelet mean volume (Bld) [Entitic vol] Platelet mean volume [Entitic volume] in Blood by Automated count 9.5-13.5 [facility] Platelets Auto (Bld) [#/Vol] on 08-13-2024 Platelets (Bld) [#/Vol] Platelets [#/volume] in Blood by Automated count 150-450 [facility] RBC Auto (Bld) [#/Vol]on RBC (Bld) [#/Vol] Erythrocytes [#/volu me] in Blood by Automated count Low 4.70-6.10 [facility] Serum or plasma anion gap de terminationon 08-13-2024 Anion gap [Moles/Vol] Serum or plasma an ion gap determination [facility] Main OR Preoperative Recordo n 08-11-2024 Main OR Preoperative Record Main OR Preoperative Record Holding Area Document Type FTURO Summary Primary Physician: Jason LARKIN MD Finalized Date/Time: 08/11/24 16:19:02 Pt. Name: LANI LIZAMA/Sex: 1950 Male Med Rec #: [id number] Physician: Jason LARKIN MD Financial #: [id number] Pt. Type: O Room/Bed: / Admit/Disch: 08/04/24 [...] SUNITA Agrawal RN, Ruthann 08/11/24 16:19 Normal [facility] Urine Cytology ([facility])on 0 08-07-2024 Microscopic exam Cytology (U) [Interp] Diagnosis Info Invalid Interpretation Code [facility] Comment on above: Result Comment: A:Ur ine,Urine:Voided Interpretation - Adequate cellularity for evaluation. CPT 28297 MicroScopic Description - Adequacy - Gross Description Site ID:A color Red fixative Alcohol Specimen designated Urine received in alcohol preservative and labeled with the patient???s name, consists of 60ml cloudy red fluid. Electronically signed by : on: 08/07/2024 13:02:18 Performed By: #### 1 [id number] #### [facility] [address] [place] [address] Main OR Intraoperative Recor don 08-04-2024 Main OR Intraoperative Record Main OR Intraoperative Record IntraOp Document Type FTURO Summary Primary Physician: Jason LARKIN MD Finalized Date/Time: 08/04/24 10:03:52 Pt. Name: LANI LIZAMA/Sex: 1950 Male Med Rec #: [id number] Physician: Jason LARKIN MD Financial #: [id number] Pt. Type: O Room/Bed: / Admit/Disch: 08/04/24 09:15:12 - Institution: Case Times FTURO Entry 1 Patient Times In Room 08/04/24 09:45:00 Out Room 08/04/24 10:10:00 Procedure Times Start 08/04/24 09:53:00 Stop 08/04/24 10:05:00 Anesthesia Times Last Modified By: SUNITA Agrawal RN, Yanet 08/04/24 10:03:16 Case Attendance FTURO Entry 1 Entry 2 Entry 3 Case Attendee CHAYA LEMUS, Jason Agrawal RN, CNOR, Halley WRIGHT, Hortencia Hlot Role Performed Surgeon - Primary Chrome Tanner - Primary Scrub - Primary Time In 08/04/24 09:45:00 08/04/24 09:45:00 08/04/24 09:45:00 Time Out 08/04/24 10:10:00 08/04/24 10:10:00 08/04/24 10:10:00 Procedure CYSTOSCOPY LOCAL(.) CYSTOSCOPY LOCAL(.) CYSTOSCOPY LOCAL(.) Comments Last Modified By: Tanja POSADA, CNOR, Tanja POSADA, DEEPALIOR, Tanja POSADA, DEEPALIOR, Yanet 08/04/24 Yanet 08/04/24 Yanet 08/04/24 10:03:18 10:03:36 10:03:36 Surgical Procedures FTURO Entry 1 Procedure Description Procedure CYSTOSCOPY LOCAL Modifiers . Surgeon Description CYSTO, irrigation of bladder Primary Procedure Yes Primary Surgeon Jason LARKIN MD 08/04/24 09:53:00 Stop 08/04/24 10:05:00 Anesthesia Type Local Surgical Service Urology Wound Class 2 - Clean-Contaminated Last Modified By: Tanja POSADA, SUNITA, Yanet 08/04/24 10:03:21 General Case Data FTURO [...] HEMATURIA Last Modified By: SUNITA Agrawal RN, Yanet 08/04/24 10:01:19 Post-Care Text: The patient is [...] Participants Tanja POSADA, DEEPALIOR, Applicable) Halley Holt PIERCER OPERATOR, Hortencia Mota Time Out Complete 08/04/24 09:50:00 [...] SUNITA Agrawal RN, Ruthann 08/04/24 10:03 Normal [facility] Operative Reporton 5 Operative Report Operative Report Patient: LANI LIZAMA [...] TURBT potentially at a tertiary center.. Normal [facility] Comment on above: Result Comment: Elec tronically Signed By: Jason LARKIN MD\.br\Date and Time Signed: 08/04/24 10:12 EDT HbA1c HPLC (Bld) [Mass fract ion]on 08-03-2024 HbA1c (Bld) [Mass fraction] Hemoglobin A1c/Hemoglobin.total in Blood by HPLC [facility] No Panel Informationon 08-03 Bedside Glucose 147 [facility] Urine Cytology ([facility])on 0 08-03-2024 Method of Extraction Voided Normal [facility] Comment on above: Performed By: #### 1 [id number] #### [facility] [address] [place] [address] UC Number of Jars 1 Invalid Interpretation Code [facility] Comment on above: Performed By: #### 1 [id number] #### [facility] [address] [place] [address] Specimen Urine Normal [facility] Comment on above: Performed By: #### 1 [id number] #### [facility] [address] [facility] [place] [address] Type of Service Technical Only Normal [facility] Comment on above: Performed By: #### 1 [id number] #### [facility] [address] [facility] [place] [address] Urology Office/Clinic Noteon 08-03-2024 Urology Office/Clinic Note [...] factor for urothelial ca. 5. Anticoagulated (Z79.01: senior living (current) use of anticoagulants) On Plavix. Hx of CABG x5 1995 at . , PCI/stent x8 at [facility]. Elevated risk for periop complications. Follow-up With When Contact Information CHAYA LEMUS, Jason Sanchez, [facility] [address], [place] [address]- [phone] Additional Instructions: sched cysto Patient Education Cystoscopy I, Tiffany Patten, personally scribed for Dr. Larkin on 08/03/2024 14:23:23. . Documentation recorded by the Tiffany shannon, accurately reflects the services(s) I performed and decisions made by me. Authenticated by Dr. Larkin on 08/03/2024 14:25:00. Problem List/Past Medical History Ongoing Abdominal pain, RLQ Anticoagulated Arthritis ASHD (arteriosclerotic heart disease) Atheroscler of [place] artery of both legs with intermit claudication [...] abdominal aort (more content not included)... Normal [facility] Comment on above: Result Comment: Elec tronically Signed By: Jason LARKIN MD\.br\Date and Time Signed: 08/03/24 14:25 EDT\.br\Electronically Co-Signed By: Tiffany Patten\.br\Date and Time Co-Signed: 08/03/24 14:24 EDT Basophils Auto (Bld) [#/Vol] on 07-15-2024 Basophils (Bld) [#/Vol] Automated basophil count 0.0-0.1 [facility] Basophils/100 WBC Auto (Bld) on 07-15-2024 Basophils/100 WBC (Bld) Automated basophil % 0.2-2.0 [facility] Eosinophils/100 WBC Auto (Bl d)on 07-15-2024 Eosinophils/100 WBC (Bld) Automated eosinophil % 0.9-7.0 [facility] Erythrocyte distribution wid th Auto (RBC) [Ratio]on 07-15-2024 Erythrocyte distribution width (RBC) [Ratio] Erythrocyte distribution width [Ratio] by Automated count 11.0-15.0 [facility] Estimated glomerular filtrat ion rate (GFR) non- Americanon 07-15-2024 GFR/1.73 sq M.predicted among non-blacks MDRD (S/P/Bld) [Vol rate/Area] Estimated glomerular filtration rate (GFR) non- Low >=60 mL/min/1.7 3m 2 [facility] Globulin Calc (S) [Mass/Vol] on 07-15-2024 Globulin (S) [Mass/Vol] Serum globulin measurement by calculation (mass/volume) [facility] Hematocrit Auto (Bld) [Volum e fraction]on 07-15-2024 Hematocrit (Bld) [Volume fraction] Hematocrit [Volume Fraction] of Blood by Automated count 42.0-54.0 [facility] Hemoglobin [Mass/volume] in Bloodon 07-15-2024 Hemoglobin (Bld) [Mass/Vol] Hemoglobin [Mass/volume] in Blood 14.0-18.0 [facility] Laboratory - Chemistry and C hemistry - challengeon 07-15-2024 Albumin [Mass/Vol] 3.8 g/dL 3.4-5.0 [facility] ALP [Catalytic activity/Vol] 128 U/L High 46-116 [facility] ALT [Catalytic activity/Vol] 30 U/L 16-63 [facility] AST [Catalytic activity/Vol] 22 U/L 15-37 [facility] Bilirubin [Mass/Vol] 0.6 mg/dL 0.2-1.0 [facility] Calcium [Mass/Vol] 8.9 mg/dL 8.5-10.1 [facility] Chloride [Moles/Vol] 104 mmol/L 98-107 [facility] CO2 [Moles/Vol] 28.1 mmol/L 21.0-32.0 [facility] Creatinine [Mass/Vol] 1.74 mg/dL High 0.70-1.30 [facility] GFR/1.73 sq M.predicted MDRD (S/P/Bld) [Vol rate/Area] 47 mL/min/{1.73_m2} Low >=60 mL/min/1.7 3m 2 [facility] Glucose [Mass/Vol] 142 mg/dL High 74-106 [facility] Potassium [Moles/Vol] 4.1 mmol/L 3.5-5.1 [facility] Protein [Mass/Vol] 7.5 g/dL 6.4-8.2 [facility] Sodium [Moles/Vol] 140 mmol/L 136-145 [facility] Urea nitrogen [Mass/Vol] 19.0 mg/dL High 7.0-18.0 [facility] Urea nitrogen/Creatinine [Mass ratio] 10.9 mg/mg [facility] Laboratory - Hematology and Cell countson 07-15-2024 Immature granulocytes/100 WBC (Bld) 0.6 % High 0.0-0.5 [facility] Leukocytes [#/volume] correc soraya for nucleated erythrocytes in Blood by Automated counon 07-15-2024 WBC corrected for nucl RBC Auto (Bld) [#/Vol] Leukocytes [#/volume] corrected for nucleated erythrocytes in Blood by Automated coun 4.0-11.0 [facility] Lymphocytes Auto (Bld) [#/Vo l]on 07-15-2024 Lymphocytes (Bld) [#/Vol] Lymphocytes [#/volume] in Blood by Automated count 1.2-3.8 [facility] Lymphocytes/100 WBC Auto (Bl d)on 07-15-2024 Lymphocytes/100 WBC (Bld) Lymphocytes/100 leukocytes in Blood by Automated count 20.5-60.0 [facility] MCH Auto (RBC) [Entitic mass ]on 07-15-2024 MCH (RBC) [Entitic mass] MCH [Entitic mass] by Automated count 25.9-34.0 [facility] MCHC Auto (RBC) [Mass/Vol]on 07-15-2024 MCHC (RBC) [Mass/Vol] MCHC [Mass/volume] by Automated count 29.9-35.2 [facility] MCV Auto (RBC) [Entitic vol] on 07-15-2024 MCV (RBC) [Entitic vol] MCV [Entitic volume] by Automated count 80.0-94.0 [facility] Monocytes Auto (Bld) [#/Vol] on 07-15-2024 Monocytes (Bld) [#/Vol] Automated blood monocyte count 0.3-0.8 [facility] Monocytes/100 WBC Auto (Bld) on 07-15-2024 Monocytes/100 WBC (Bld) Automated monocyte % 1.7-12.0 [facility] Neutrophils Auto (Bld) [#/Vo l]on 07-15-2024 Neutrophils (Bld) [#/Vol] Neutrophils [#/volume] in Blood by Automated count 1.4-6.5 [facility] Neutrophils/100 WBC Auto (Bl d)on 07-15-2024 Neutrophils/100 WBC (Bld) Automated neutrophil % 43.0-75.0 [facility] No Panel Informationon 07-15 Eosinophils # (Auto) 0.3 10 3/uL 0.0-0.7 [facility] Immature Granulocyte # (Auto) 0.05 10 3/uL High 0.00-0.03 [facility] Platelet mean volume Auto (B ld) [Entitic vol]on 07-15-2024 Platelet mean volume (Bld) [Entitic vol] Platelet mean volume [Entitic volume] in Blood by Automated count 9.5-13.5 [facility] Platelets Auto (Bld) [#/Vol] on 07-15-2024 Platelets (Bld) [#/Vol] Platelets [#/volume] in Blood by Automated count 150-450 [facility] RBC Auto (Bld) [#/Vol]on RBC (Bld) [#/Vol] Erythrocytes [#/volu me] in Blood by Automated count 4.70-6.10 [facility] Serum or plasma albumin/glob ulin mass ratioon 07-15-2024 Albumin/Globulin [Mass ratio] Serum or plasma albumin/globulin mass ratio [facility] Serum or plasma anion gap de terminationon 07-15-2024 Anion gap [Moles/Vol] Serum or plasma an ion gap determination [facility] Erythrocyte distribution wid th Auto (RBC) [Ratio]on 07-07-2024 Erythrocyte distribution width (RBC) [Ratio] Erythrocyte distribution width [Ratio] by Automated count High 11.0-15.0 [facility] Estimated glomerular filtrat ion rate (GFR) non- Americanon 07-07-2024 GFR/1.73 sq M.predicted among non-blacks MDRD (S/P/Bld) [Vol rate/Area] Estimated glomerular filtration rate (GFR) non- Low >=60 mL/min/1.7 3m 2 [facility] Hematocrit Auto (Bld) [Volum e fraction]on 07-07-2024 Hematocrit (Bld) [Volume fraction] Hematocrit [Volume Fraction] of Blood by Automated count 42.0-54.0 [facility] Hemoglobin [Mass/volume] in Bloodon 07-07-2024 Hemoglobin (Bld) [Mass/Vol] Hemoglobin [Mass/volume] in Blood 14.0-18.0 [facility] Laboratory - Chemistry and C hemistry - challengeon 07-07-2024 Albumin [Mass/Vol] 3.9 g/dL 3.4-5.0 [facility] Calcium [Mass/Vol] 9.3 mg/dL 8.5-10.1 [facility] Chloride [Moles/Vol] 105 mmol/L 98-107 [facility] CO2 [Moles/Vol] 28.7 mmol/L 21.0-32.0 [facility] Creatinine [Mass/Vol] 1.87 mg/dL High 0.70-1.30 [facility] GFR/1.73 sq M.predicted MDRD (S/P/Bld) [Vol rate/Area] 43 mL/min/{1.73_m2} Low >=60 mL/min/1.7 3m 2 [facility] Glucose [Mass/Vol] 196 mg/dL High 74-106 [facility] Magnesium [Mass/Vol] 1.9 mg/dL 1.8-2.4 [facility] Potassium [Moles/Vol] 5.5 mmol/L High 3.5-5.1 [facility] Sodium [Moles/Vol] 139 mmol/L 136-145 [facility] Urate [Mass/Vol] 3.5 mg/dL 3.5-7.2 [facility] Urea nitrogen [Mass/Vol] 19.0 mg/dL High 7.0-18.0 [facility] Urea nitrogen/Creatinine [Mass ratio] 10.2 mg/mg [facility] Laboratory - Urinalysison Protein (U) [Mass/Vol] 124.0 mg/dL High <=11.9 [facility] Leukocytes [#/volume] correc soraya for nucleated erythrocytes in Blood by Automated counon 07-07-2024 WBC corrected for nucl RBC Auto (Bld) [#/Vol] Leukocytes [#/volume] corrected for nucleated erythrocytes in Blood by Automated coun 4.0-11.0 [facility] MCH Auto (RBC) [Entitic mass ]on 07-07-2024 MCH (RBC) [Entitic mass] MCH [Entitic mass] by Automated count 25.9-34.0 [facility] MCHC Auto (RBC) [Mass/Vol]on 07-07-2024 MCHC (RBC) [Mass/Vol] MCHC [Mass/volume] by Automated count 29.9-35.2 [facility] MCV Auto (RBC) [Entitic vol] on 07-07-2024 MCV (RBC) [Entitic vol] MCV [Entitic volume] by Automated count 80.0-94.0 [facility] No Panel Informationon 07-07 25-Hydroxy Vitamin D Total 41.5 ng/mL [facility] Comment on above: <20 ng/mL Vit D defi cient20-<30 ng/mL Vit D epnhdslymkyt01-665 ng/mL Vit D sufficient>100 ng/mL Potential Toxicity Parathyroid Hormone (Intact) 62 pg/mL 15-65 [facility] Comment on above: Performed at: [address] [id number] Director: Kwaku Park PhD, Phone: [phone] Phosphorus Level 3.7 mg/dL 2.6-4.7 [facility] Urine Random Creatinine 69.77 mg/dL 20.00-300. 00 [facility] Platelet mean volume Auto (B ld) [Entitic vol]on 07-07-2024 Platelet mean volume (Bld) [Entitic vol] Platelet mean volume [Entitic volume] in Blood by Automated count 9.5-13.5 [facility] Platelets Auto (Bld) [#/Vol] on 07-07-2024 Platelets (Bld) [#/Vol] Platelets [#/volume] in Blood by Automated count 150-450 [facility] RBC Auto (Bld) [#/Vol]on RBC (Bld) [#/Vol] Erythrocytes [#/volu me] in Blood by Automated count 4.70-6.10 [facility] Serum or plasma anion gap de terminationon 07-07-2024 Anion gap [Moles/Vol] Serum or plasma an ion gap determination [facility] Urine Cultureon 07-07-2024 Bacteria identified Cx Nom (U) <9,000 colonies/ml mixed bacterial skin contaminants 2 Days PERFORMED BY: [address] [place] [address] PATHOLOGIST [employer]OP WIRE STRINGER ANDREA FARRELL M.D. Normal [facility] Comment on above: Performed By: #### C UU #### [address] Urine protein/creatinine rat ioon 07-07-2024 Protein/Creatinine (U) [Ratio] Urine protein/creatinine ratio [facility] Laboratory - Microbiology an d Antimicrobial susceptibilityon 06-10-2024 SARS-CoV-2 (COVID-19) RNA RAMO+probe Ql (Unsp spec) Positive Abnormal NEGATIVE [facility] Comment on above: This test has [...] 06-10 Bedside Influenza Type A Antigen Negative [facility] Comment on above: Negative for Flu A p rotein antigen. Infection due to Flu Acannot be ruled out. Flu A antigen in the sample may bebelow the detection limit of the test. Bedside Influenza Type B Antigen Negative [facility] Comment on above: Negative for Flu B p rotein antigen. Infection due to Flu Bcannot be ruled out. Flu B antigen in the sample may bebelow the detection limit of the test. Cholesterol in LDL Calc [Mas s/Vol]on 05-05-2024 Cholesterol in LDL [Mass/Vol] Cholesterol in LDL [Mass/volume] in Serum or Plasma by calculation [facility] Comment on above: <100 mg/dl [id number] 0-129 mg/dl NEAR OR ABOVE [id number] mg/dl BORDERLINE [id number] mg/dl HIGH>190 mg/dl VERY HIGH Cholesterol in VLDL Calc [Ma ss/Vol]on 05-05-2024 Cholesterol in VLDL [Mass/Vol] Cholesterol in VLDL [Mass/volume] in Serum or Plasma by calculation [facility] Estimated glomerular filtrat ion rate (GFR) non- Americanon 05-05-2024 GFR/1.73 sq M.predicted among non-blacks MDRD (S/P/Bld) [Vol rate/Area] Estimated glomerular filtration rate (GFR) non- Low >=60 mL/min/1.7 3m 2 [facility] Globulin Calc (S) [Mass/Vol] on 05-05-2024 Globulin (S) [Mass/Vol] Serum globulin measurement by calculation (mass/volume) [facility] Laboratory - Chemistry and C hemistry - challengeon 05-05-2024 Albumin [Mass/Vol] 3.7 g/dL 3.4-5.0 [facility] ALP [Catalytic activity/Vol] 162 U/L High 46-116 [facility] ALT [Catalytic activity/Vol] 17 U/L 16-63 [facility] AST [Catalytic activity/Vol] 20 U/L 15-37 [facility] Bilirubin [Mass/Vol] 0.5 mg/dL 0.2-1.0 [facility] Calcium [Mass/Vol] 9.2 mg/dL 8.5-10.1 [facility] Chloride [Moles/Vol] 104 mmol/L 98-107 [facility] Cholesterol [Mass/Vol] 117 mg/dL <=200 [facility] Cholesterol in HDL [Mass/Vol] 39 mg/dL Low 40-60 [facility] Comment on above: > or =60 mg/dl - LOW CARDIOVASCULAR RISK<40 mg/dl - HIGH CARDIOVASCULAR RISK CO2 [Moles/Vol] 28.5 mmol/L 21.0-32.0 [facility] Creatinine [Mass/Vol] 2.15 mg/dL High 0.70-1.30 [facility] GFR/1.73 sq M.predicted MDRD (S/P/Bld) [Vol rate/Area] 37 mL/min/{1.73_m2} Low >=60 mL/min/1.7 3m 2 [facility] Glucose [Mass/Vol] 220 mg/dL High 74-106 [facility] Potassium [Moles/Vol] 4.6 mmol/L 3.5-5.1 [facility] Protein [Mass/Vol] 8.0 g/dL 6.4-8.2 [facility] Sodium [Moles/Vol] 141 mmol/L 136-145 [facility] Triglyceride [Mass/Vol] 171 mg/dL High <=150 [facility] Urea nitrogen [Mass/Vol] 27.0 mg/dL High 7.0-18.0 [facility] Urea nitrogen/Creatinine [Mass ratio] 12.6 mg/mg [facility] Microalbumin [Mass/volume] i n Urineon 05-05-2024 Albumin DL <= 20 mg/L (U) [Mass/Vol] Microalbumin [Mass/volume] in Urine <=30.0 [facility] No Panel Informationon 05-05 Urine Random Creatinine 61.15 mg/dL 20.00-300. 00 [facility] Serum or plasma albumin/glob ulin mass ratioon 05-05-2024 Albumin/Globulin [Mass ratio] Serum or plasma albumin/globulin mass ratio [facility] Serum or plasma anion gap de terminationon 05-05-2024 Anion gap [Moles/Vol] Serum or plasma an ion gap determination [facility] Serum or plasma total choles terol/high density lipoprotein (HDL) cholesterol mass yulia 05-05-2024 Cholesterol.total/Chol esterol in HDL [Mass ratio] Serum or plasma total cholesterol/high density lipoprotein (HDL) cholesterol mass rat [facility] Comment on above: 3.3 - 4.4 LOW RISK4. 4 - 7.1 AVERAGE RISK7.1 - 11.0 MODERATE RISK>11.0 HIGH RISK Urine microalbumin/creatinin e mass ratioon 05-05-2024 Albumin/Creatinine DL <= 20 mg/L (U) [Mass ratio] Urine microalbumin/creatinine mass ratio High 0.0-29.9 [facility] Comment on above: NO MICROALBUMINURIA 0-29 MG/GCLINICAL MICROALBUMINURIA 30-300 MG/GMACROALBUMINURIA >300 MG/G HbA1c HPLC (Bld) [Mass fract ion]on 04-30-2024 HbA1c (Bld) [Mass fraction] Hemoglobin A1c/Hemoglobin.total in Blood by HPLC [facility] No Panel Informationon 04-30 Bedside Glucose 158 [facility] Office Visiton 03-10-2024 Follow-up visit [id number] Lani Lizama 1950 M Date Provider Department Center 03/10/2024 KEVIN DEMPSEY MARCELINO Armas Family History Problem Relation Age of Onset Heart attack Mother Other Father Other Brother Heart attack Maternal Grandmother Heart attack Maternal Grandfather Family Status - Relation Status Age at Mother Father Brother Maternal Grandmother Maternal Grandfather Level of Service:88648 [place] OFFICE/OUTPATIENT NEW LOW MDM 30 MINUTES Normal [facility] 30on 02-14-2024 30 The patient is Moder ately Stable - Low risk of patient condition declining or worsening The patient's goals for the shift include get better The clinical goals for the shift include VSS Normal [facility] 30 The patient is Moder [...] and behaviors that affect risk of falls [place] fall precautions as indicated by assessment Educate [...] and prevent overall improvement and discharge Normal [facility] BASIC METABOLIC PANELon 01-30 Anion gap [Moles/Vol] 9 mmol/L Normal 7-20 [facility] Comment on above: Performed By: #### L [id number] ####[facility] (BEAKER)[address] [place] [address] Calcium [Mass/Vol] 8.4 mg/dL Low 8.6-10.3 [facility] Comment on above: Performed By: #### L [id number] ####[facility] (BEAKER)[address] [place] [address] Chloride [Moles/Vol] 109 mmol/L High 98-107 [facility] Comment on above: Performed By: #### L [id number] ####[facility] (BEAKER)[address] [place] [address] CO2 [Moles/Vol] 25 mmol/L Normal 21-31 [facility] Comment on above: Performed By: #### L [id number] ####[facility] ([facility])[address] [place] [address] Creatinine [Mass/Vol] 1.65 mg/dL High 0.70-1.30 [facility] Comment on above: Performed By: #### L [id number] ####[facility] ([facility])[address] [place] [address] GLOMERULAR FILTRATION RATE ML/MIN/1.73 SQ M.PREDICTED 43.8 mL/min/1.73m*2 Low >60.0 [facility] Comment on above: Result Comment: [facility]???s estimated glomerular filtration rate (eGFR) [...] of individuals. Performed By: #### L [id number] ####[facility] [place] [address] Glucose [Mass/Vol] 118 mg/dL High 70-100 [facility] Comment on above: Performed By: #### L [id number] ####[facility] (BEAKER)[address] [place] [address] Potassium [Moles/Vol] 4.3 mmol/L Normal 3.5-5.1 [facility] Comment on above: Performed By: #### L [id number] ####[facility] [place] [address] Sodium [Moles/Vol] 139 mmol/L Normal 136-145 [facility] Comment on above: Performed By: #### L [id number] ####[facility] [place] [address] Urea nitrogen [Mass/Vol] 19 mg/dL Normal 7-25 [facility] Comment on above: Performed By: #### L [id number] ####[facility] ([facility])[address] [place] [address] UREA NITROGEN/CREATININE (MASS RATIO) IN SER/PLAS 11.5 Normal [facility] Comment on above: Performed By: #### L [id number] ####[facility] ([facility])[address] [place] [address] CBCon 02-14-2024 Erythrocyte distribution width (RBC) [Ratio] 13.8 % Normal 11.5-15.0 [facility] Comment on above: Performed By: #### L [id number] #### [facility] ([facility]) [address] [place] [address] ERYTHROCYTE MEAN CORPUSCULAR HEMOGLOBIN CONCENTRATION (G/DL) BY AUTOMATED 32.9 g/dL Normal 32.0-35.0 [facility] Comment on above: Performed By: #### L [id number] #### [facility] ([facility] [address] [place] [address] Hematocrit (Bld) [Volume fraction] 38.0 % Low 39.0-55.0 [facility] Comment on above: Performed By: #### L [id number] #### [facility] ([facility]) [address] [place] [address] Hemoglobin (Bld) [Mass/Vol] 12.5 g/dL Low 13.0-17.0 [facility] Comment on above: Performed By: #### L [id number] #### [facility] ([facility]) [address] [place] [address] MCH (RBC) [Entitic mass] 30.1 pg Normal 27.0-33.0 [facility] Comment on above: Performed By: #### L [id number] #### [facility] ([facility]) [address] [place] [address] MCV (RBC) [Entitic vol] 91.6 fL Normal 82.0-98.0 [facility] Comment on above: Performed By: #### L [id number] #### [facility] ([facility]) [address] [place] [address] PLATELETS (10*3/UL) IN BLOOD AUTOMATED COUNT 176 10*3/uL Normal 150-400 [facility] Comment on above: Performed By: #### L [id number] #### [facility] ([facility]) [address] [place] [address] RBC (Bld) [#/Vol] 4.15 10*6/uL Low 4.20-5.70 [facility] Comment on above: Performed By: #### L [id number] #### [facility] ([facility]) [address] [place] [address] WBC (Bld) [#/Vol] 6.88 10*3/uL Normal 4.00-10.60 [facility] Comment on above: Performed By: #### L [id number] #### [facility] ([facility]) [address] [place] [address] NURSNOTEon 02-14-2024 NURSNOTE Discharge instructio n given , patient verbalized understanding, no follow up questions asked Normal [facility] POCT GLUCOSE METER UNSOLICIT ED RESULTSon 02-14-2024 Glucose [Mass/Vol] 231 mg/dL High 70-105 [facility] Comment on above: Order Comment: Waive d Testing in the ED is performed under the ED CLIA certificate #[id number]. Result Comment: [email or web address] enl3 Performed By: #### L [id number] #### [facility] ([facility]) [address] [place] [address] Glucose [Mass/Vol] 128 mg/dL High 70-105 [facility] Comment on above: Order Comment: Check anti-Xa level every 6 hours while on heparin infusion, or per protocol. Result Comment: [email or web address] enl3 Performed By: #### L [id number] #### [facility] ([facility]) [address] [place] [address] TROPONIN Ion 02-14-2024 Troponin I.cardiac [Mass/Vol] 1.08 ng/mL Critically high 0.00-0.04 [facility] Comment on above: Result Comment: M-MT EVIOUS CRITICAL RESULT Previous result verified on 02/14/2024 0605 on specimen/case [id number] called with component Troponin I for procedure Troponin I with value 1.69 ng/mL. Performed By: #### L [id number] #### [facility] ([facility]) [address] [place] [address] Troponin I.cardiac [Mass/Vol] 1.69 ng/mL Critically high 0.00-0.04 [facility] Comment on above: Performed By: #### L [id number] ####[facility] ([facility])[address] [place] [address] 30on 02-13-2024 30 The patient is Moder ately Stable - Low risk of patient condition declining or worsening The patient's goals for the shift include get better The clinical goals for the shift include VSS Normal [facility] 30 The patient is Moder [...] and behaviors that affect risk of falls [place] fall precautions as indicated by assessment Educate [...] and behaviors that affect risk of falls [place] fall precautions as indicated by assessment Educate [...] and prevent overall improvement and discharge Normal [facility] ANTI-XA (HEPARIN LEVEL)on HEPARIN UNFRACTIONATED (U/ML) IN PPP BY CHROMOGENIC METHOD 0.85 IU/mL High 0.3-0.7 [facility] Comment on above: Order Comment: Check anti-Xa level every 6 hours while on heparin infusion, or per protocol. Result Comment: Rhona roxaban and Apixaban will interfere with the anti Xa assay used to monitor UFH and LMWH. Performed By: #### L [id number] #### [facility] ([facility]) [address] [place] [address] APTTon 02-13-2024 ACTIVATED PARTIAL THROMBOPLASTIN TIME IN PPP BY COAGULATION ASSAY 93.5 Seconds High 25.0-35.0 [facility] Comment on above: Order Comment: Basel ine aPTT before initiating heparin infusion. Result Comment: Clin ical significance of the APTT is questionable in the presence of heparin. Performed By: #### L [id number] #### [facility] ([facility]) [address] [place] [address] B-TYPE NATRIURETIC PEPTIDEon 02-13-2024 Natriuretic peptide B (Bld) [Mass/Vol] 693 pg/mL High 0-100 [facility] Comment on above: Performed By: #### L [id number] #### [facility] ([facility]) [address] [place] [address] BASIC METABOLIC PANELon 01-30 Anion gap [Moles/Vol] 10 mmol/L Normal 7-20 [facility] Comment on above: Performed By: #### L [id number] #### [facility] ([facility]) [address] [place] [address] Calcium [Mass/Vol] 8.9 mg/dL Normal 8.6-10.3 [facility] Comment on above: Performed By: #### L [id number] #### [facility] ([facility]) [address] [place] [address] Chloride [Moles/Vol] 107 mmol/L Normal 98-107 [facility] Comment on above: Performed By: #### L [id number] #### [facility] ([facility]) [address] [place] [address] CO2 [Moles/Vol] 25 mmol/L Normal 21-31 [facility] Comment on above: Performed By: #### L [id number] #### [facility] ([facility]) [address] [place] [address] Creatinine [Mass/Vol] 1.61 mg/dL High 0.70-1.30 [facility] Comment on above: Performed By: #### L [id number] #### [facility] ([facility]) [address] [place] [address] GLOMERULAR FILTRATION RATE ML/MIN/1.73 SQ M.PREDICTED 45.2 mL/min/1.73m*2 Low >60.0 [facility] Comment on above: Result Comment: [facility]???s estimated glomerular filtration rate (eGFR) [...] individuals. Performed By: #### L [id number] #### [facility] ([facility]) [address] [place] [address] Glucose [Mass/Vol] 174 mg/dL High 70-100 [facility] Comment on above: Performed By: #### L [id number] #### [facility] ([facility]) [address] [place] [address] Potassium [Moles/Vol] 4.3 mmol/L Normal 3.5-5.1 [facility] Comment on above: Performed By: #### L [id number] #### [facility] ([facility]) [address] [place] [address] Sodium [Moles/Vol] 138 mmol/L Normal 136-145 [facility] Comment on above: Performed By: #### L [id number] #### [facility] ([facility]) [address] [place] [address] Urea nitrogen [Mass/Vol] 20 mg/dL Normal 7-25 [facility] Comment on above: Performed By: #### L [id number] #### [facility] ([facility]) [address] [place] [address] UREA NITROGEN/CREATININE (MASS RATIO) IN SER/PLAS 12.4 Normal [facility] Comment on above: Performed By: #### L [id number] #### [facility] ([facility]) [address] [place] [address] CBC WITH AUTO DIFFERENTIALon 02-13-2024 Basophils (Bld) [#/Vol] 0.05 10*3/uL Normal 0.00-0.20 [facility] Comment on above: Performed By: #### L [id number] ####[facility] ([facility])[address] [place] [address] Basophils/100 WBC (Bld) 0.7 % Normal 0.0-1.0 [facility] Comment on above: Performed By: #### L [id number] ####[facility] ([facility] [place] [address] Eosinophils (Bld) [#/Vol] 0.13 10*3/uL Normal 0.00-0.50 [facility] Comment on above: Performed By: #### L [id number] ####[facility] ([facility]ER)[address] [place] [address] Eosinophils/100 WBC (Bld) 1.8 % Normal 0.0-6.0 [facility] Comment on above: Performed By: #### L [id number] ####[facility] ([facility])[address] [place] [address] Erythrocyte distribution width (RBC) [Ratio] 13.4 % Normal 11.5-15.0 [facility] Comment on above: Performed By: #### L [id number] ####[facility] ([facility])[address] [place] [address] ERYTHROCYTE MEAN CORPUSCULAR HEMOGLOBIN CONCENTRATION (G/DL) BY AUTOMATED 34.1 g/dL Normal 32.0-35.0 [facility] Comment on above: Performed By: #### L [id number] ####[facility] ([facility])[address] [place] [address] Hematocrit (Bld) [Volume fraction] 40.2 % Normal 39.0-55.0 [facility] Comment on above: Performed By: #### L [id number] ####[facility] ([facility])[address] [place] [address] Hemoglobin (Bld) [Mass/Vol] 13.7 g/dL Normal 13.0-17.0 [facility] Comment on above: Performed By: #### L [id number] ####[facility] ([facility] [place] [address] Immature granulocytes (Bld) [#/Vol] 0.03 10*3/uL Normal 0.00-0.20 [facility] Comment on above: Performed By: #### L [id number] ####[facility] ([facility])[address] [place] [address] Immature granulocytes/100 WBC (Bld) 0.4 % Normal 0.0-1.0 [facility] Comment on above: Performed By: #### L [id number] ####[facility] ([facility] [place] [address] Lymphocytes (Bld) [#/Vol] 1.64 10*3/uL Normal 1.20-4.00 [facility] Comment on above: Performed By: #### L [id number] ####[facility] ([facility] [place] [address] Lymphocytes/100 WBC (Bld) 22.3 % Normal 20.0-45.0 [facility] Comment on above: Performed By: #### L [id number] ####[facility] ([facility])[address] [place] [address] MCH (RBC) [Entitic mass] 30.2 pg Normal 27.0-33.0 [facility] Comment on above: Performed By: #### L [id number] ####[facility] ([facility] [place] [address] MCV (RBC) [Entitic vol] 88.5 fL Normal 82.0-98.0 [facility] Comment on above: Performed By: #### L [id number] ####[facility] ([facility])[address] [place] [address] Monocytes (Bld) [#/Vol] 0.69 10*3/uL Normal 0.10-1.00 [facility] Comment on above: Performed By: #### L [id number] ####[facility] ([facility])[address] [place] [address] Monocytes/100 WBC (Bld) 9.4 % Normal 5.0-12.0 [facility] Comment on above: Performed By: #### L [id number] ####[facility] ([facility])[address] [place] [address] Neutrophils (Bld) [#/Vol] 4.80 10*3/uL Normal 1.60-7.60 [facility] Comment on above: Performed By: #### L [id number] ####[facility] ([facility])[address] [place] [address] Neutrophils/100 WBC (Bld) 65.4 % Normal 40.0-72.0 [facility] Comment on above: Performed By: #### L [id number] ####[facility] ([facility])[address] [place] [address] NRBC (PER 100 WBCS) BY AUTOMATED COUNT 0.0 % Normal 0 [facility] Comment on above: Performed By: #### L [id number] ####[facility] ([facility])[address] [place] [address] PLATELETS (10*3/UL) IN BLOOD AUTOMATED COUNT 202 10*3/uL Normal 150-400 [facility] Comment on above: Performed By: #### L [id number] ####[facility] ([facility])[address] [place] [address] RBC (Bld) [#/Vol] 4.54 10*6/uL Normal 4.20-5.70 [facility] Comment on above: Performed By: #### L [id number] ####[facility] ([facility])[address] [place] [address] WBC (Bld) [#/Vol] 7.34 10*3/uL Normal 4.00-10.60 [facility] Comment on above: Performed By: #### L [id number] ####[facility] ([facility])[address] [place] [address] CONSULTon 02-13-2024 CONSULT ----- ----- Attestation signed [...] III who presented as a transferred from [facility] with NSTEMI. Cardiology planning for cath [...] (H) 08/31 (more content not included)... Normal [facility] CONSULT ----- ----- Attestation signed by Yfn [...] III who presented as a transferred from [facility] with NSTEMI. The patient complained of [...] and nitro drip. When he arrived to [facility] he was chest pain-free. Troponin [...] artery stenosis, Coronary artery disease, Diabetes mellitus ([facility]), Hyperlipidemia, Hypertension, PVD (peripheral vascular disease) ([facility]), and Third degree heart block (CMS/HCC). Surgical [...] included)... [facility] HPon 02-13-2024 H&P reviewed. The patient has significant CAD [...] were addressed and answered. Jenny Fernandez MD Upper Inspector - PGY6 [facility] Pt seen and examined. Agree with above Parul Pena MD Normal [facility] MAGNESIUMon 02-13-2024 Magnesium [Mass/Vol] 2.0 mg/dL Normal 1.9-2.7 [facility] Comment on above: Performed By: #### L [id number] #### [facility] ([facility]) [address] [place] [address] POCT GLUCOSE METER UNSOLICIT ED RESULTSon 02-13-2024 Glucose [Mass/Vol] 200 mg/dL High 70-105 [facility] Comment on above: Order Comment: Waive d Testing in the ED is performed under the ED CLIA certificate #[id number]. Result Comment: roberto gorei Performed By: #### L [id number] #### [facility] ([facility]) [address] [place] [address] Glucose [Mass/Vol] 187 mg/dL High 70-105 [facility] Comment on above: Order Comment: Check anti-Xa level every 6 hours while on heparin infusion, or per protocol. Result Comment: iseg [email or web address] Performed By: #### L [id number] #### [facility] ([facility]) [address] [place] [address] Glucose [Mass/Vol] 141 mg/dL High 70-105 [facility] Comment on above: Order Comment: Waive d Testing in the ED is performed under the ED CLIA certificate #[id number]. Result Comment: [email or web address] Performed By: #### L [id number] #### [facility] ([facility]) [address] [place] [address] Glucose [Mass/Vol] 166 mg/dL High 70-105 [facility] Comment on above: Order Comment: Waive d Testing in the ED is performed under the ED CLIA certificate #[id number]. Result Comment: nita cordon Performed By: #### L [id number] #### [facility] ([facility]) [address] [place] [address] PROTIME-INRon 02-13-2024 INR IN PPP BY COAGULATION ASSAY 1.17 High 0.90-1.10 [facility] Comment on above: [...] CHEST 1995;[id number]. Performed By: #### L [id number] ####[facility] ([facility])[address] [place] [address] PROTHROMBIN TIME (PT) IN PPP BY COAGULATION ASSAY 14.9 Seconds High 12.3-14.8 [facility] Comment on above: Performed By: #### L [id number] ####[facility] ([facility]ER)[address] [place] [address] TROPONIN Ion 02-13-2024 Troponin I.cardiac [Mass/Vol] 2.02 ng/mL Critically high 0.00-0.04 [facility] Comment on above: Result Comment: M-MT EVIOUS CRITICAL RESULT Previous result verified on 02/13/2024 0606 on specimen/case [id number] called with component Troponin I for procedure Troponin I with value 3.34 ng/mL. Performed By: #### L [id number] #### [facility] ([facility]) [address] [place] [address] Troponin I.cardiac [Mass/Vol] 2.10 ng/mL Critically high 0.00-0.04 [facility] Comment on above: Result Comment: M-MT EVIOUS CRITICAL RESULT Previous result verified on 02/13/2024 0606 on specimen/case [id number] called with component Troponin I for procedure Troponin I with value 3.34 ng/mL. Performed By: #### L [id number] ####[facility] ([facility])[address] [place] [address] Troponin I.cardiac [Mass/Vol] 3.34 ng/mL Critically high 0.00-0.04 [facility] Comment on above: Result Comment: M-TR OPONIN INITIAL CRITICAL HIGH; RESPUN AND RETESTED Performed By: #### L [id number] #### [facility] ([facility]) [address] [place] [address] Activated partial thrombopla stin time (aPTT) in platelet poor plasma by coagulation aon 02-12-2024 aPTT Coag (PPP) [Time] Activated partial thromboplastin time (aPTT) in platelet poor plasma by coagulation a 22.3-36.2 [facility] Basophils Auto (Bld) [#/Vol] on 02-12-2024 Basophils (Bld) [#/Vol] Automated basophil count 0.0-0.1 [facility] Basophils/100 WBC Auto (Bld) on 02-12-2024 Basophils/100 WBC (Bld) Automated basophil % 0.2-2.0 [facility] Eosinophils/100 WBC Auto (Bl d)on 02-12-2024 Eosinophils/100 WBC (Bld) Automated eosinophil % 0.9-7.0 [facility] Erythrocyte distribution wid th Auto (RBC) [Ratio]on 02-12-2024 Erythrocyte distribution width (RBC) [Ratio] Erythrocyte distribution width [Ratio] by Automated count 11.0-15.0 [facility] Estimated glomerular filtrat ion rate (GFR) non- Americanon 02-12-2024 GFR/1.73 sq M.predicted among non-blacks MDRD (S/P/Bld) [Vol rate/Area] Estimated glomerular filtration rate (GFR) non- Low >=60 mL/min/1.7 3m 2 [facility] Hematocrit Auto (Bld) [Volum e fraction]on 02-12-2024 Hematocrit (Bld) [Volume fraction] Hematocrit [Volume Fraction] of Blood by Automated count 42.0-54.0 [facility] Hemoglobin [Mass/volume] in Bloodon 02-12-2024 Hemoglobin (Bld) [Mass/Vol] Hemoglobin [Mass/volume] in Blood 14.0-18.0 [facility] INR in Platelet poor plasma by Coagulation assayon 02-12-2024 INR Coag (PPP) [Relative time] INR in Platelet poor plasma by Coagulation assay [facility] Comment on above: DESIRED INR:2.0-3.0 CONDITIONS NOT LISTED BELOW2.5-3.5 FOR PROSTHETIC HEART VALVE REPLACEMENT2.5-3.5 RECURRENT THROMBOSIS Laboratory - Chemistry and C hemistry - challengeon 02-12-2024 Calcium [Mass/Vol] 9.4 mg/dL 8.5-10.1 [facility] Chloride [Moles/Vol] 106 mmol/L 98-107 [facility] CO2 [Moles/Vol] 22.9 mmol/L 21.0-32.0 [facility] Creatinine [Mass/Vol] 1.97 mg/dL High 0.70-1.30 [facility] GFR/1.73 sq M.predicted MDRD (S/P/Bld) [Vol rate/Area] 41 mL/min/{1.73_m2} Low >=60 mL/min/1.7 3m 2 [facility] Glucose [Mass/Vol] 236 mg/dL High 74-106 [facility] Potassium [Moles/Vol] 3.9 mmol/L 3.5-5.1 [facility] Comment on above: SPECIMEN SLIGHTLY HE MOLYZED Sodium [Moles/Vol] 141 mmol/L 136-145 [facility] Urea nitrogen [Mass/Vol] 21.0 mg/dL High 7.0-18.0 [facility] Urea nitrogen/Creatinine [Mass ratio] 10.7 mg/mg [facility] Laboratory - Hematology and Cell countson 02-12-2024 Immature granulocytes/100 WBC (Bld) 0.5 % 0.0-0.5 [facility] Leukocytes [#/volume] correc soraya for nucleated erythrocytes in Blood by Automated counon 02-12-2024 WBC corrected for nucl RBC Auto (Bld) [#/Vol] Leukocytes [#/volume] corrected for nucleated erythrocytes in Blood by Automated coun 4.0-11.0 [facility] Lymphocytes Auto (Bld) [#/Vo l]on 02-12-2024 Lymphocytes (Bld) [#/Vol] Lymphocytes [#/volume] in Blood by Automated count 1.2-3.8 [facility] Lymphocytes/100 WBC Auto (Bl d)on 02-12-2024 Lymphocytes/100 WBC (Bld) Lymphocytes/100 leukocytes in Blood by Automated count 20.5-60.0 [facility] MCH Auto (RBC) [Entitic mass ]on 02-12-2024 MCH (RBC) [Entitic mass] MCH [Entitic mass] by Automated count 25.9-34.0 [facility] MCHC Auto (RBC) [Mass/Vol]on 02-12-2024 MCHC (RBC) [Mass/Vol] MCHC [Mass/volume] by Automated count 29.9-35.2 [facility] MCV Auto (RBC) [Entitic vol] on 02-12-2024 MCV (RBC) [Entitic vol] MCV [Entitic volume] by Automated count 80.0-94.0 [facility] Monocytes Auto (Bld) [#/Vol] on 02-12-2024 Monocytes (Bld) [#/Vol] Automated blood monocyte count 0.3-0.8 [facility] Monocytes/100 WBC Auto (Bld) on 02-12-2024 Monocytes/100 WBC (Bld) Automated monocyte % 1.7-12.0 [facility] Neutrophils Auto (Bld) [#/Vo l]on 02-12-2024 Neutrophils (Bld) [#/Vol] Neutrophils [#/volume] in Blood by Automated count 1.4-6.5 [facility] Neutrophils/100 WBC Auto (Bl d)on 02-12-2024 Neutrophils/100 WBC (Bld) Automated neutrophil % 43.0-75.0 [facility] No Panel Informationon 02-11 Troponin I High Sensitivity 85.0 pg/mL Critically high 4.0-76.1 [facility] Comment on above: RESULTS CALLED TO [...] Eosinophils # (Auto) 0.2 10 3/uL 0.0-0.7 [facility] Immature Granulocyte # (Auto) 0.04 10 3/uL High 0.00-0.03 [facility] Platelet mean volume Auto (B ld) [Entitic vol]on 02-12-2024 Platelet mean volume (Bld) [Entitic vol] Platelet mean volume [Entitic volume] in Blood by Automated count 9.5-13.5 [facility] Platelets Auto (Bld) [#/Vol] on 02-12-2024 Platelets (Bld) [#/Vol] Platelets [#/volume] in Blood by Automated count 150-450 [facility] Prothrombin time (PT)on 01-30 PT Coag (PPP) [Time] Prothrombin time (PT) 9.0- 11.6 [facility] RBC Auto (Bld) [#/Vol]on RBC (Bld) [#/Vol] Erythrocytes [#/volu me] in Blood by Automated count 4.70-6.10 [facility] Serum or plasma anion gap de terminationon 02-12-2024 Anion gap [Moles/Vol] Serum or plasma an ion gap determination [facility] Erythrocyte distribution wid th Auto (RBC) [Ratio]on 12-30-2023 Erythrocyte distribution width (RBC) [Ratio] 14.3 % 11.0-15.0 [facility] Estimated glomerular filtrat ion rate (GFR) non- Americanon 12-30-2023 GFR/1.73 sq M.predicted among non-blacks MDRD (S/P/Bld) [Vol rate/Area] 31 mL/min/{1.73_m2} Low >=60 [facility] Hematocrit Auto (Bld) [Volum e fraction]on 12-30-2023 Hematocrit (Bld) [Volume fraction] 45.2 % 42.0-54.0 [facility] Hemoglobin [Mass/volume] in Bloodon 12-30-2023 Hemoglobin (Bld) [Mass/Vol] 14.8 g/dL 14.0-18.0 [facility] Laboratory - Chemistry and C hemistry - challengeon 12-30-2023 Albumin [Mass/Vol] 3.8 g/dL 3.4-5.0 [facility] Calcium [Mass/Vol] 9.9 mg/dL 8.5-10.1 [facility] Chloride [Moles/Vol] 103 mmol/L 98-107 [facility] CO2 [Moles/Vol] 27.9 mmol/L 21.0-32.0 [facility] Creatinine [Mass/Vol] 2.10 mg/dL High 0.70-1.30 [facility] GFR/1.73 sq M.predicted MDRD (S/P/Bld) [Vol rate/Area] 38 mL/min/{1.73_m2} Low >=60 [facility] Glucose [Mass/Vol] 207 mg/dL High 74-106 [facility] Magnesium [Mass/Vol] 2.1 mg/dL 1.8-2.4 [facility] Potassium [Moles/Vol] 4.7 mmol/L 3.5-5.1 [facility] Sodium [Moles/Vol] 137 mmol/L 136-145 [facility] Urate [Mass/Vol] 4.1 mg/dL 3.5-7.2 [facility] Urea nitrogen [Mass/Vol] 29.0 mg/dL High 7.0-18.0 [facility] Urea nitrogen/Creatinine [Mass ratio] 13.8 mg/mg [facility] Laboratory - Urinalysison Protein (U) [Mass/Vol] 26.9 mg/dL High <=11.9 [facility] Leukocytes [#/volume] correc soraya for nucleated erythrocytes in Blood by Automated counon 12-30-2023 WBC corrected for nucl RBC Auto (Bld) [#/Vol] 8.7 10 3/uL 4.0-11.0 [facility] MCH Auto (RBC) [Entitic mass ]on 12-30-2023 MCH (RBC) [Entitic mass] 30.0 pg 25.9-34.0 [facility] MCHC Auto (RBC) [Mass/Vol]on 12-30-2023 MCHC (RBC) [Mass/Vol] 32.7 g/dL 29.9-35.2 [facility] MCV Auto (RBC) [Entitic vol] on 12-30-2023 MCV (RBC) [Entitic vol] 91.7 fL 80.0-94.0 [facility] No Panel Informationon 12-29 25-Hydroxy Vitamin D Total 47.5 ng/mL [facility] Comment on above: <20 ng/mL Vit D defi cient20-<30 ng/mL Vit D raycxleguaec22-549 ng/mL Vit D sufficient>100 ng/mL Potential Toxicity Parathyroid Hormone (Intact) 27 pg/mL 15-65 [facility] Comment on above: Performed at: - [facility] [address] [id number] Director: Kwaku Park PhD, Phone: [phone] Phosphorus Level 3.7 mg/dL 2.6-4.7 [facility] Urine Random Creatinine 85.11 mg/dL 20.00-300. 00 [facility] Platelet mean volume Auto (B ld) [Entitic vol]on 12-30-2023 Platelet mean volume (Bld) [Entitic vol] 9.3 fL Low 9.5-13.5 [facility] Platelets Auto (Bld) [#/Vol] on 12-30-2023 Platelets (Bld) [#/Vol] 193 10 3/uL 150-450 [facility] RBC Auto (Bld) [#/Vol]on RBC (Bld) [#/Vol] 4.93 10 6/uL 4.70-6.10 [facility] Serum or plasma anion gap de terminationon 12-30-2023 Anion gap [Moles/Vol] 10.8 mmol/L [facility] Urine protein/creatinine rat ioon 12-30-2023 Protein/Creatinine (U) [Ratio] 0.32 [facility] HbA1c HPLC (d) [Mass fract ion]on 10-17-2023 HbA1c (d) [Mass fraction] 7.5 % [facility] No Panel Informationon 10-16 Bedside Glucose 108 [facility] Office Visiton 10-07-2023 Follow-up visit [id number] Lani Lizama 1950 M Date Provider Department Center 10/07/2023 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 Normal [facility] BASIC METABOLIC PANELon 06-2 Anion gap [Moles/Vol] 13 mmol/L Normal 7-20 [facility] Comment on above: Performed By: #### L [id number] ####[facility] ([facility])[address] [place] [address] Calcium [Mass/Vol] 8.8 mg/dL Normal 8.6-10.3 [facility] Comment on above: Performed By: #### L [id number] ####[facility] ([facility])[address] [place] [address] Chloride [Moles/Vol] 104 mmol/L Normal 98-107 [facility] Comment on above: Performed By: #### L [id number] ####[facility] ([facility])[address] [place] [address] CO2 [Moles/Vol] 24 mmol/L Normal 21-31 [facility] Comment on above: Performed By: #### L [id number] ####[facility] ([facility])[address] [place] [address] Creatinine [Mass/Vol] 1.59 mg/dL High 0.70-1.30 [facility] Comment on above: Performed By: #### L [id number] ####[facility] ([facility])[address] [place] [address] GLOMERULAR FILTRATION RATE ML/MIN/1.73 SQ M.PREDICTED 46.1 mL/min/1.73m*2 Low >60.0 [facility] Comment on above: Result Comment: [facility]???s estimated glomerular filtration rate (eGFR) [...] of individuals. Performed By: #### L [id number] ####[facility] ([facility])[address] [place] [address] Glucose [Mass/Vol] 188 mg/dL High 70-100 [facility] Comment on above: Performed By: #### L [id number] ####[facility] ([facility])[address] [place] [address] Potassium [Moles/Vol] 4.1 mmol/L Normal 3.5-5.1 [facility] Comment on above: Performed By: #### L [id number] ####[facility] ([facility])[address] [place] [address] Sodium [Moles/Vol] 137 mmol/L Normal 136-145 [facility] Comment on above: Performed By: #### L [id number] ####[facility] ([facility])[address] [place] [address] Urea nitrogen [Mass/Vol] 26 mg/dL High 7-25 [facility] Comment on above: Performed By: #### L [id number] ####[facility] ([facility])[address] [place] [address] UREA NITROGEN/CREATININE (MASS RATIO) IN SER/PLAS 16.4 Normal [facility] Comment on above: Performed By: #### L [id number] ####[facility] ([facility])[address] [place] [address] CBCon 09-28-2023 Erythrocyte distribution width (RBC) [Ratio] 14.2 % Normal 11.5-15.0 [facility] Comment on above: Performed By: #### L [id number] #### [facility] ([facility]) [address] [place] [address] ERYTHROCYTE MEAN CORPUSCULAR HEMOGLOBIN CONCENTRATION (G/DL) BY AUTOMATED 33.2 g/dL Normal 32.0-35.0 [facility] Comment on above: Performed By: #### L [id number] #### [facility] ([facility]) [address] [place] [address] Hematocrit (Bld) [Volume fraction] 43.4 % Normal 39.0-55.0 [facility] Comment on above: Performed By: #### L [id number] #### [facility] ([facility]) [address] [place] [address] Hemoglobin (Bld) [Mass/Vol] 14.4 g/dL Normal 13.0-17.0 [facility] Comment on above: Performed By: #### L [id number] #### [facility] ([facility]) [address] [place] [address] MCH (RBC) [Entitic mass] 28.4 pg Normal 27.0-33.0 [facility] Comment on above: Performed By: #### L [id number] #### [facility] ([facility]) [address] [place] [address] MCV (RBC) [Entitic vol] 85.6 fL Normal 82.0-98.0 [facility] Comment on above: Performed By: #### L [id number] #### [facility] ([facility]) [address] [place] [address] PLATELETS (10*3/UL) IN BLOOD AUTOMATED COUNT 159 10*3/uL Normal 150-400 [facility] Comment on above: Performed By: #### L [id number] #### [facility] ([facility]) [address] [place] [address] RBC (Bld) [#/Vol] 5.07 10*6/uL Normal 4.20-5.70 [facility] Comment on above: Performed By: #### L [id number] #### [facility] ([facility]) [address] [place] [address] WBC (Bld) [#/Vol] 7.88 10*3/uL Normal 4.00-10.60 [facility] Comment on above: Performed By: #### L [id number] #### [facility] ([facility]) [address] [place] [address] POCT GLUCOSE METER UNSOLICIT ED RESULTSon 09-28-2023 Glucose [Mass/Vol] 176 mg/dL High 70-105 [facility] Comment on above: Order Comment: Waive d Testing in the ED is performed under the ED CLIA certificate #[id number]. Result Comment: [email or web address] Performed By: #### L [id number] ####[facility] ([facility])[address] [place] [address] 30on 09-27-2023 30 Problem: Pain - Adul [...] the shift include stable VS, cardiac cath [facility] 30 Daily Case Managemen t Update Multidisciplinary rounds have been completed. Barriers to Discharge: Patient is a direct admitted from [place], due chest pain and elevated troponin. Tx to rust, most recent Cardiology consulted and are planning [...] Consultation Consultation and Management 09/26/23 1713 Normal [facility] 30 The patient is Moder [...] and maintained or improved Outcome: Progressing Normal [facility] ANTI-XA (HEPARIN LEVEL)on HEPARIN UNFRACTIONATED (U/ML) IN PPP BY CHROMOGENIC METHOD 0.47 IU/mL Normal 0.3-0.7 [facility] Comment on above: Order Comment: Check anti-Xa level every 6 hours while on heparin infusion, or per protocol. Result Comment: Cutler roxaban and Apixaban will interfere with the anti Xa assay used to monitor UFH and LMWH. Performed By: #### L [id number] ####[facility] (AKER)[address] [place] [address] HEPARIN UNFRACTIONATED (U/ML) IN PPP BY CHROMOGENIC METHOD 0.55 IU/mL Normal 0.3-0.7 [facility] Comment on above: Order Comment: Check anti-Xa level every 6 hours while on heparin infusion, or per protocol. Result Comment: Cutler roxaban and Apixaban will interfere with the anti Xa assay used to monitor UFH and LMWH. Performed By: #### L [id number] #### [facility] ([facility]) [address] [place] [address] BASIC METABOLIC PANELon 08-31 Anion gap [Moles/Vol] 16 mmol/L Normal 7-20 [facility] Comment on above: Performed By: #### L [id number] #### [facility] ([facility]) [address] [place] [address] Calcium [Mass/Vol] 9.2 mg/dL Normal 8.6-10.3 [facility] Comment on above: Performed By: #### L [id number] #### [facility] [address] [place] [address] Chloride [Moles/Vol] 105 mmol/L Normal 98-107 [facility] Comment on above: Performed By: #### L [id number] #### [facility] [address] [place] [address] CO2 [Moles/Vol] 23 mmol/L Normal 21-31 [facility] Comment on above: Performed By: #### L [id number] #### [facility] ([facility]) [address] [place] [address] Creatinine [Mass/Vol] 1.56 mg/dL High 0.70-1.30 [facility] Comment on above: Performed By: #### L [id number] #### [facility] ([facility]) [address] [place] [address] GLOMERULAR FILTRATION RATE ML/MIN/1.73 SQ M.PREDICTED 47.2 mL/min/1.73m*2 Low >60.0 [facility] Comment on above: Result Comment: [facility]???s estimated glomerular filtration rate (eGFR) [...] individuals. Performed By: #### L [id number] #### [facility] [address] [place] [address] Glucose [Mass/Vol] 166 mg/dL High 70-100 [facility] Comment on above: Performed By: #### L [id number] #### [facility] [address] [place] [address] Potassium [Moles/Vol] 4.3 mmol/L Normal 3.5-5.1 [facility] Comment on above: Performed By: #### L [id number] #### [facility] [address] [place] [address] Sodium [Moles/Vol] 140 mmol/L Normal 136-145 [facility] Comment on above: Performed By: #### L [id number] #### [facility] [address] [place] [address] Urea nitrogen [Mass/Vol] 26 mg/dL High 7-25 [facility] Comment on above: Performed By: #### L [id number] #### [facility] ([facility]) [address] [place] [address] UREA NITROGEN/CREATININE (MASS RATIO) IN SER/PLAS 16.7 Normal [facility] Comment on above: Performed By: #### L [id number] #### [facility] [address] [place] [address] CBCon 09-27-2023 Erythrocyte distribution width (RBC) [Ratio] 14.4 % Normal 11.5-15.0 [facility] Comment on above: Performed By: #### L [id number] ####[facility] ([facility])[address] [place] [address] ERYTHROCYTE MEAN CORPUSCULAR HEMOGLOBIN CONCENTRATION (G/DL) BY AUTOMATED 33.1 g/dL Normal 32.0-35.0 [facility] Comment on above: Performed By: #### L [id number] ####[facility] [place] [address] Hematocrit (Bld) [Volume fraction] 46.2 % Normal 39.0-55.0 [facility] Comment on above: Performed By: #### L [id number] ####[facility] ([facility])[address] [place] [address] Hemoglobin (Bld) [Mass/Vol] 15.3 g/dL Normal 13.0-17.0 [facility] Comment on above: Performed By: #### L [id number] ####[facility] [place] [address] MCH (RBC) [Entitic mass] 28.7 pg Normal 27.0-33.0 [facility] Comment on above: Performed By: #### L [id number] ####[facility] ([facility])[address] [place] [address] MCV (RBC) [Entitic vol] 86.7 fL Normal 82.0-98.0 [facility] Comment on above: Performed By: #### L [id number] ####[facility] ([facility])[address] [place] [address] PLATELETS (10*3/UL) IN BLOOD AUTOMATED COUNT 158 10*3/uL Normal 150-400 [facility] Comment on above: Performed By: #### L [id number] ####[facility] ([facility])[address] [place] [address] RBC (Bld) [#/Vol] 5.33 10*6/uL Normal 4.20-5.70 [facility] Comment on above: Performed By: #### L [id number] ####[facility] ([facility])[address] [place] [address] WBC (Bld) [#/Vol] 7.95 10*3/uL Normal 4.00-10.60 [facility] Comment on above: Performed By: #### L [id number] ####[facility] ([facility])[address] [place] [address] CONSULTon 09-27-2023 CONSULT Cardiology Consult N rabia [...] with elevated troponin consistent with non-ST elevation ID. 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 Pain was described as centrally-located and pressure-like, and unrelieved by Nitroglycerin x3. Patient started on nitroglycerin drip which provided relief. Initial high sensitivity troponin was unremarkable, but repeat was elevated (2962). He was started on heparin and transferred to [facility] for further evaluation. We were [...] artery stenosis, Coronary artery disease, Diabetes mellitus ([facility]), Hyperlipidemia, Hypertension, PVD (peripheral vascular disease) ([facility]), and Third degree heart block ([facility]). Surgical History He has a past surgical [...] insulin dete (more content not included)... Normal [facility] HP 09-27-2023 HP H&P reviewed. The jaron mark was interviewed and examined. 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 Procedure's details, risks and benefits discussed with the patient and he's agreeable. Normal [facility] LIPID PANELon 09-27-2023 CHOL/HDL 3.5 mg/dL Normal [facility] Comment on above: Performed By: #### L [id number] ####[facility] ([facility])[address] [place] [address] Cholesterol [Mass/Vol] 108 mg/dL Low 120-200 [facility] Comment on above: Performed By: #### L [id number] ####[facility] ([facility])[address] [place] [address] Magnesium [Mass/Vol] 148 mg/dL Normal 40-149 [facility] Comment on above: Result Comment: TRIG LYCERIDE REFERENCE RANGE: 20 YEARS AND OLDER CARDIOVASCULAR RISK LESS THAN 150 mg/dL LOW RISK 150 TO 199 mg/dL BORDERLINE RISK 200 mg/dL AND GREATER HIGH RISK Performed By: #### L [id number] ####[facility] ([facility])[address] [place] [address] Magnesium [Mass/Vol] 47 mg/dL Normal 0-160 [facility] Comment on above: Performed By: #### L [id number] ####[facility] [place] [address] Magnesium [Mass/Vol] 31 mg/dL Normal 23-92 [facility] Comment on above: Performed By: #### L [id number] ####[facility] ([facility])[address] [facility] [place] [address] NON HDL CHOL. (LDL+VLDL) 77 Normal [facility] Comment on above: Performed By: #### L [id number] ####[facility] ([facility])[address] [place] [address] TOTAL VLDL-C 30 mg/dL Normal 0-40 [facility] Comment on above: Performed By: #### L [id number] ####[facility] ([facility])[address] [place] [address] POCT GLUCOSE METER UNSOLICIT ED RESULTSon 09-27-2023 Glucose [Mass/Vol] 299 mg/dL High 70-105 [facility] Comment on above: Order Comment: Waive d Testing in the ED is performed under the ED CLIA certificate #[id number]. Result Comment: roberto macias Performed By: #### L [id number] ####[facility] ([facility])[address] [place] [address] Glucose [Mass/Vol] 140 mg/dL High 70-105 [facility] Comment on above: Order Comment: Waive d Testing in the ED is performed under the ED CLIA certificate #[id number]. Result Comment: [email or web address] Performed By: #### L [id number] #### [facility] ([facility]) [address] [place] [address] Glucose [Mass/Vol] 193 mg/dL High 70-105 [facility] Comment on above: Order Comment: Waive d Testing in the ED is performed under the ED CLIA certificate #[id number]. Result Comment: [email or web address] [email or web address] Performed By: #### L [id number] ####[facility] ([facility])[address] [place] [address] Glucose [Mass/Vol] 184 mg/dL High 70-105 [facility] Comment on above: Order Comment: Waive d Testing in the ED is performed under the ED CLIA certificate #[id number]. Result Comment: [email or web address] Performed By: #### L [id number] #### [facility] ([facility]) [address] [place] [address] TROPONIN Ion 09-27-2023 Troponin I.cardiac [Mass/Vol] 3.05 ng/mL Critically high 0.00-0.04 [facility] Comment on above: Result Comment: M-MT EVIOUS CRITICAL RESULT Previous result verified on 09/27/2023 0117 on specimen/case [id number] called with component Troponin I for procedure Troponin I with value 3.51 ng/mL. Performed By: #### L [id number] ####[facility] ([facility])[address] [place] [address] 30on 09-26-2023 30 The patient is Moder ately Stable - Low risk of patient condition declining or worsening The patient's goals for the shift include Comfort/Rest The clinical goals for the shift include stable vital signs Normal [facility] ANTI-XA (HEPARIN LEVEL)on HEPARIN UNFRACTIONATED (U/ML) IN PPP BY CHROMOGENIC METHOD 0.82 IU/mL High 0.3-0.7 [facility] Comment on above: Order Comment: Check anti-Xa level every 6 hours while on heparin infusion, or per protocol. Result Comment: Rhona roxaban and Apixaban will interfere with the anti Xa assay used to monitor UFH and LMWH. Performed By: #### L [id number] #### [facility] ([facility]) [address] [place] [address] APTTon 09-26-2023 ACTIVATED PARTIAL THROMBOPLASTIN TIME IN PPP BY COAGULATION ASSAY 34.7 Seconds Normal 25.0-35.0 [facility] Comment on above: Order Comment: Basel ine aPTT before initiating heparin infusion. Result Comment: Clin ical significance of the APTT is questionable in the presence of heparin. Performed By: #### L [id number] #### [facility] ([facility]) [address] [place] [address] Activated partial thrombopla stin time (aPTT) in platelet poor plasma by coagulation aon 09-26-2023 aPTT Coag (PPP) [Time] 28.8 s 22.3-36.2 [facility] Basophils Auto (Bld) [#/Vol] on 09-26-2023 Basophils (Bld) [#/Vol] 0.1 10 3/uL 0.0-0.1 [facility] Basophils/100 WBC Auto (Bld) on 09-26-2023 Basophils/100 WBC (Bld) 0.6 % 0.2-2.0 [facility] CBCon 09-26-2023 Erythrocyte distribution width (RBC) [Ratio] 14.3 % Normal 11.5-15.0 [facility] Comment on above: Performed By: #### L [id number] #### [facility] [address] [place] [address] ERYTHROCYTE MEAN CORPUSCULAR HEMOGLOBIN CONCENTRATION (G/DL) BY AUTOMATED 33.1 g/dL Normal 32.0-35.0 [facility] Comment on above: Performed By: #### L [id number] #### [facility] (BEAKER) [address] [place] [address] Hematocrit (Bld) [Volume fraction] 48.7 % Normal 39.0-55.0 [facility] Comment on above: Performed By: #### L [id number] #### [facility] (BEAKER) [address] [place] [address] Hemoglobin (Bld) [Mass/Vol] 16.1 g/dL Normal 13.0-17.0 [facility] Comment on above: Performed By: #### L [id number] #### [facility] (BEAKER) [address] [place] [address] MCH (RBC) [Entitic mass] 28.8 pg Normal 27.0-33.0 [facility] Comment on above: Performed By: #### L [id number] #### [facility] (BEAKER) [address] [place] [address] MCV (RBC) [Entitic vol] 87.0 fL Normal 82.0-98.0 [facility] Comment on above: Performed By: #### L [id number] #### [facility] (BEAKER) [address] [facility] [place] [address] PLATELETS (10*3/UL) IN BLOOD AUTOMATED COUNT 170 10*3/uL Normal 150-400 [facility] Comment on above: Performed By: #### L [id number] #### [facility] ([facility]) [address] [place] [address] RBC (Bld) [#/Vol] 5.60 10*6/uL Normal 4.20-5.70 [facility] Comment on above: Performed By: #### L [id number] #### [facility] ([facility]) [address] [place] [address] WBC (Bld) [#/Vol] 7.75 10*3/uL Normal 4.00-10.60 [facility] Comment on above: Performed By: #### L [id number] #### [facility] ([facility]) [address] [place] [address] COMPREHENSIVE METABOLIC PANE [facility] 09-26-2023 Albumin [Mass/Vol] 4.3 g/dL Normal 3.5-5.7 [facility] Comment on above: Performed By: #### L [id number] #### [facility] ([facility]) [address] [place] [address] ALP [Catalytic activity/Vol] 100 U/L Normal 34-104 [facility] Comment on above: Performed By: #### L [id number] #### [facility] ([facility]) [address] [place] [address] ALT [Catalytic activity/Vol] 20 U/L Normal 7-52 [facility] Comment on above: Performed By: #### L [id number] #### [facility] ([facility]) [address] [place] [address] Anion gap [Moles/Vol] 15 mmol/L Normal 7-20 [facility] Comment on above: Performed By: #### L [id number] #### [facility] ([facility]) [address] [place] [address] AST [Catalytic activity/Vol] 50 U/L High 13-39 [facility] Comment on above: Performed By: #### L [id number] #### [facility] [address] [place] [address] Bilirubin [Mass/Vol] 1.1 mg/dL High 0.3-1.0 [facility] Comment on above: Performed By: #### L [id number] #### [facility] (BEAKER) [address] [place] [address] Calcium [Mass/Vol] 9.4 mg/dL Normal 8.6-10.3 [facility] Comment on above: Performed By: #### L [id number] #### [facility] [address] [place] [address] Chloride [Moles/Vol] 104 mmol/L Normal 98-107 [facility] Comment on above: Performed By: #### L [id number] #### [facility] [address] [place] [address] CO2 [Moles/Vol] 26 mmol/L Normal 21-31 [facility] Comment on above: Performed By: #### L [id number] #### [facility] [address] [place] [address] Creatinine [Mass/Vol] 1.45 mg/dL High 0.70-1.30 [facility] Comment on above: Performed By: #### L [id number] #### [facility] [address] [place] [address] GLOMERULAR FILTRATION RATE ML/MIN/1.73 SQ M.PREDICTED 51.5 mL/min/1.73m*2 Low >60.0 [facility] Comment on above: Result Comment: [facility]???s estimated glomerular filtration rate (eGFR) [...] individuals. Performed By: #### L [id number] #### [facility] ([facility]) [address] [place] [address] Glucose [Mass/Vol] 141 mg/dL High 70-100 [facility] Comment on above: Performed By: #### L [id number] #### [facility] ([facility]) [address] [place] [address] Potassium [Moles/Vol] 4.2 mmol/L Normal 3.5-5.1 [facility] Comment on above: Performed By: #### L [id number] #### [facility] ([facility]) [address] [place] [address] Protein [Mass/Vol] 7.4 g/dL Normal 6.0-8.3 [facility] Comment on above: Performed By: #### L [id number] #### [facility] ([facility]) [address] [place] [address] Sodium [Moles/Vol] 141 mmol/L Normal 136-145 [facility] Comment on above: Performed By: #### L [id number] #### [facility] ([facility]) [address] [place] [address] Urea nitrogen [Mass/Vol] 24 mg/dL Normal 7-25 [facility] Comment on above: Performed By: #### L [id number] #### [facility] ([facility]) [address] [place] [address] UREA NITROGEN/CREATININE (MASS RATIO) IN SER/PLAS 16.6 Normal [facility] Comment on above: Performed By: #### L [id number] #### [facility] ([facility]) [address] [place] [address] Eosinophils/100 WBC Auto (Bl d)on 09-26-2023 Eosinophils/100 WBC (Bld) 2.4 % 0.9-7.0 [facility] Erythrocyte distribution wid th Auto (RBC) [Ratio]on 09-26-2023 Erythrocyte distribution width (RBC) [Ratio] 14.3 % 11.0-15.0 [facility] Estimated glomerular filtrat ion rate (GFR) non- Americanon 09-26-2023 GFR/1.73 sq M.predicted among non-blacks MDRD (S/P/Bld) [Vol rate/Area] 39 mL/min/{1.73_m2} Low >=60 [facility] Globulin Calc (S) [Mass/Vol] on 09-26-2023 Globulin (S) [Mass/Vol] 4.0 g/dL [facility] HPon 09-26-2023 HP History Of Present Illness Lani Lizama is a 72 y.o. male presenting with patient is a 72-year-old gentleman with history of coronary atherosclerosisChest pain. 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 Patient woke up with chest pain around [...] wasstarted on heparin and was transferred to [facility] for further cares. Creatinine was [...] obtained and is negative except per the [facility] Last Recorded Vitals Visit Vitals BP 134/78 (BP Location: Right arm, Patient Position: Sitting) Pulse 83 Temp 36.7 ???C (98.1 ???F) (Temporal) Resp 19 Ht 1.702 m (5' 7 ) Wt 79.9 kg (176 lb 3.2 oz) BMI 27.60 kg/m??? Smoking Status Former BSA 1.94 m??? GENERAL: The patient is well developed and nontoxic (more content not included)... Normal [facility] Hematocrit Auto (Bld) [Volum e fraction]on 09-26-2023 Hematocrit (Bld) [Volume fraction] 49.4 % 42.0-54.0 [facility] Hemoglobin [Mass/volume] in Bloodon 09-26-2023 Hemoglobin (Bld) [Mass/Vol] 16.0 g/dL 14.0-18.0 [facility] INR in Platelet poor plasma by Coagulation assayon 09-26-2023 INR Coag (PPP) [Relative time] 0.99 {INR} [facility] Comment on above: DESIRED INR:2.0-3.0 CONDITIONS NOT LISTED BELOW2.5-3.5 FOR PROSTHETIC HEART VALVE REPLACEMENT2.5-3.5 RECURRENT THROMBOSIS LACTIC ACID WITH 4 HOUR REFL EXon 09-26-2023 LACTATE (MMOL/L) IN SER/PLAS 1.1 mmol/L Normal 0.5-2.2 [facility] Comment on above: Performed By: #### L [id number] #### [facility] (BEAKER) [address] [place] [address] Laboratory - Chemistry and C hemistry - challengeon 09-26-2023 Albumin [Mass/Vol] 4.1 g/dL 3.4-5.0 [facility] ALP [Catalytic activity/Vol] 146 U/L High 46-116 [facility] ALT [Catalytic activity/Vol] 32 U/L 16-63 [facility] AST [Catalytic activity/Vol] 26 U/L 15-37 [facility] Bilirubin [Mass/Vol] 0.7 mg/dL 0.2-1.0 [facility] Calcium [Mass/Vol] 9.2 mg/dL 8.5-10.1 [facility] Chloride [Moles/Vol] 104 mmol/L 98-107 [facility] CO2 [Moles/Vol] 24.8 mmol/L 21.0-32.0 [facility] Creatinine [Mass/Vol] 1.72 mg/dL High 0.70-1.30 [facility] GFR/1.73 sq M.predicted MDRD (S/P/Bld) [Vol rate/Area] 48 mL/min/{1.73_m2} Low >=60 [facility] Glucose [Mass/Vol] 206 mg/dL High 74-106 [facility] Potassium [Moles/Vol] 4.2 mmol/L 3.5-5.1 [facility] Protein [Mass/Vol] 8.1 g/dL 6.4-8.2 [facility] Sodium [Moles/Vol] 141 mmol/L 136-145 [facility] Urea nitrogen [Mass/Vol] 26.0 mg/dL High 7.0-18.0 [facility] Urea nitrogen/Creatinine [Mass ratio] 15.1 mg/mg [facility] Laboratory - Hematology and Cell countson 06-27-2024 Immature granulocytes/100 WBC (Bld) 0.3 % 0.0-0.5 [facility] Leukocytes [#/volume] correc soraya for nucleated erythrocytes in Blood by Automated counon 09-26-2023 WBC corrected for nucl RBC Auto (Bld) [#/Vol] 10.5 10 3/uL 4.0-11.0 [facility] Lymphocytes Auto (Bld) [#/Vo l]on 09-26-2023 Lymphocytes (Bld) [#/Vol] 2.0 10 3/uL 1.2-3.8 [facility] Lymphocytes/100 WBC Auto (Bl d)on 09-26-2023 Lymphocytes/100 WBC (Bld) 18.7 % Low 20.5-60.0 [facility] MCH Auto (RBC) [Entitic mass ]on 09-26-2023 MCH (RBC) [Entitic mass] 28.4 pg 25.9-34.0 [facility] MCHC Auto (RBC) [Mass/Vol]on 09-26-2023 MCHC (RBC) [Mass/Vol] 32.4 g/dL 29.9-35.2 [facility] MCV Auto (RBC) [Entitic vol] on 09-26-2023 MCV (RBC) [Entitic vol] 87.7 fL 80.0-94.0 [facility] Monocytes Auto (Bld) [#/Vol] on 09-26-2023 Monocytes (Bld) [#/Vol] 0.8 10 3/uL 0.3-0.8 [facility] Monocytes/100 WBC Auto (Bld) on 09-26-2023 Monocytes/100 WBC (Bld) 7.3 % 1.7-12.0 [facility] Neutrophils Auto (Bld) [#/Vo l]on 09-26-2023 Neutrophils (Bld) [#/Vol] 7.4 10 3/uL High 1.4-6.5 [facility] Neutrophils/100 WBC Auto (Bl d)on 09-26-2023 Neutrophils/100 WBC (Bld) 70.7 % 43.0-75.0 [facility] No Panel Informationon 09-25 Troponin I High Sensitivity 8614.2 pg/mL High 4.0-76.1 [facility] Comment on above: RESULTS CALLED TO [...] Eosinophils # (Auto) 0.3 10 3/uL 0.0-0.7 [facility] Immature Granulocyte # (Auto) 0.03 10 3/uL 0.00-0.03 [facility] POCT GLUCOSE METER UNSOLICIT ED RESULTSon 09-26-2023 Glucose [Mass/Vol] 286 mg/dL High 70-105 [facility] Comment on above: Order Comment: Waive d Testing in the ED is performed under the ED CLIA certificate #[id number]. Result Comment: roberto macias Performed By: #### L [id number] ####[facility] (BEAKER)[address] [place] [address] Glucose [Mass/Vol] 151 mg/dL High 70-105 [facility] Comment on above: Order Comment: Waive d Testing in the ED is performed under the ED CLIA certificate #[id number]. Result Comment: [email or web address] [email or web address] Performed By: #### L [id number] #### [facility] (BEAKER) [address] [place] [address] Platelet mean volume Auto (B ld) [Entitic vol]on 09-26-2023 Platelet mean volume (Bld) [Entitic vol] 10.0 fL 9.5-13.5 [facility] Platelets Auto (Bld) [#/Vol] on 09-26-2023 Platelets (Bld) [#/Vol] 194 10 3/uL 150-450 [facility] Prothrombin time (PT)on 08-31 PT Coag (PPP) [Time] 10.5 s 9.0-11.6 [facility] RBC Auto (Bld) [#/Vol]on RBC (Bld) [#/Vol] 5.63 10 6/uL 4.70-6.10 [facility] Serum or plasma albumin/glob ulin mass ratioon 09-26-2023 Albumin/Globulin [Mass ratio] 1.0 {ratio} [facility] Serum or plasma anion gap de terminationon 09-26-2023 Anion gap [Moles/Vol] 16.4 mmol/L Fi [facility] TROPONIN Ion 09-26-2023 Troponin I.cardiac [Mass/Vol] 3.51 ng/mL Critically high 0.00-0.04 [facility] Comment on above: Result Comment: M-MT EVIOUS CRITICAL RESULT Previous result verified on 09/26/2023 2309 on specimen/case [id number] called with component Troponin I for procedure Troponin I with value 3.41 ng/mL. Performed By: #### L [id number] ####[facility] ([facility])[address] [place] [address] Troponin I.cardiac [Mass/Vol] 3.41 ng/mL Critically high 0.00-0.04 [facility] Comment on above: Result Comment: M-MT EVIOUS CRITICAL RESULT Previous result verified on 09/26/2023 1926 on specimen/case [id number] called with component Troponin I for procedure Troponin I with value 4.22 ng/mL. Performed By: #### L [id number] #### [facility] ([facility]) [address] [place] [address] Troponin I.cardiac [Mass/Vol] 4.22 ng/mL Critically high 0.00-0.04 [facility] Comment on above: Result Comment: M-TR OPONIN INITIAL CRITICAL HIGH; RESPUN AND RETESTED Performed By: #### L [id number] ####[facility] ([facility])[address] [place] [address] Office Visiton 09-09-2023 Follow-up visit [id number] Lani Lizama 1950 [facility] Provider Department Center 09/09/2023 [facility] Family History Problem Relation Age of Onset Heart attack Mother Other Father Other Brother Heart attack Maternal Grandmother Heart attack Maternal Grandfather Family Status - Relation Status Age at Mother Father Brother Maternal Grandmother Maternal Grandfather Level of Service:15527 MT OFFICE/OUTPATIENT ESTABLISHED MOD MDM 30 MIN Normal [facility] No Panel Informationon 08-26 Prostate Specific Antigen Screen 1.37 ng/mL <=4.00 [facility] Erythrocyte distribution wid th Auto (RBC) [Ratio]on 06-24-2023 Erythrocyte distribution width (RBC) [Ratio] 14.6 % 11.0-15.0 [facility] Estimated glomerular filtrat ion rate (GFR) non- Americanon 06-24-2023 GFR/1.73 sq M.predicted among non-blacks MDRD (S/P/Bld) [Vol rate/Area] 38 mL/min/{1.73_m2} >=60 [facility] Hematocrit Auto (Bld) [Volum e fraction]on 06-24-2023 Hematocrit (Bld) [Volume fraction] 46.2 % 42.0-54.0 [facility] Hemoglobin [Mass/volume] in Bloodon 06-24-2023 Hemoglobin (Bld) [Mass/Vol] 14.5 g/dL 14.0-18.0 [facility] Laboratory - Chemistry and C hemistry - challengeon 06-24-2023 Albumin [Mass/Vol] 4.0 g/dL 3.4-5.0 [facility] Calcium [Mass/Vol] 9.2 mg/dL 8.5-10.1 [facility] Chloride [Moles/Vol] 106 mmol/L 98-107 [facility] CO2 [Moles/Vol] 25.4 mmol/L 21.0-32.0 [facility] Creatinine [Mass/Vol] 1.76 mg/dL 0.70-1.30 [facility] GFR/1.73 sq M.predicted MDRD (S/P/Bld) [Vol rate/Area] 47 mL/min/{1.73_m2} >=60 [facility] Glucose [Mass/Vol] 212 mg/dL 74-106 [facility] Magnesium [Mass/Vol] 2.1 mg/dL 1.8-2.4 [facility] Potassium [Moles/Vol] 4.5 mmol/L 3.5-5.1 [facility] Sodium [Moles/Vol] 142 mmol/L 136-145 [facility] Urate [Mass/Vol] 4.3 mg/dL 3.5-7.2 [facility] Urea nitrogen [Mass/Vol] 30.0 mg/dL 7.0-18.0 [facility] Urea nitrogen/Creatinine [Mass ratio] 17.0 mg/mg [facility] Laboratory - Urinalysison Protein (U) [Mass/Vol] 11.5 mg/dL <=11.9 [facility] Leukocytes [#/volume] correc soraya for nucleated erythrocytes in Blood by Automated counon 06-24-2023 WBC corrected for nucl RBC Auto (Bld) [#/Vol] 9.6 10 3/uL 4.0-11.0 [facility] MCH Auto (RBC) [Entitic mass ]on 06-24-2023 MCH (RBC) [Entitic mass] 28.5 pg 25.9-34.0 [facility] MCHC Auto (RBC) [Mass/Vol]on 06-24-2023 MCHC (RBC) [Mass/Vol] 31.4 g/dL 29.9-35.2 [facility] MCV Auto (RBC) [Entitic vol] on 06-24-2023 MCV (RBC) [Entitic vol] 90.8 fL 80.0-94.0 [facility] No Panel Informationon 06-23 25-Hydroxy Vitamin D Total 42.5 ng/mL [facility] Comment on above: <20 ng/mL Vit D defi cient20-<30 ng/mL Vit D [id number] ng/mL Vit D sufficient>100 ng/mL Potential Toxicity Parathyroid Hormone (Intact) 48 pg/mL 15-65 [facility] Comment on above: Performed at: [address] [id number] Director: Kwaku Park PhD, Phone: [phone] Phosphorus Level 3.6 mg/dL 2.6-4.7 [facility] Urine Random Creatinine 60.60 mg/dL 20.00-300. 00 [facility] Platelet mean volume Auto (B ld) [Entitic vol]on 06-24-2023 Platelet mean volume (Bld) [Entitic vol] 10.2 fL 9.5-13.5 [facility] Platelets Auto (Bld) [#/Vol] on 06-24-2023 Platelets (Bld) [#/Vol] 178 10 3/uL 150-450 [facility] RBC Auto (Bld) [#/Vol]on RBC (Bld) [#/Vol] 5.09 10 6/uL 4.70-6.10 [facility] Serum or plasma anion gap de terminationon 06-24-2023 Anion gap [Moles/Vol] 15.1 mmol/L [facility] Urine protein/creatinine rat ioon 06-24-2023 Protein/Creatinine (U) [Ratio] 0.19 [facility] HbA1c HPLC (Bld) [Mass fract ion]on 06-18-2023 HbA1c (Bld) [Mass fraction] 6.1 % [facility] No Panel Informationon 06-17 Bedside Glucose 150 [facility] Cholesterol in LDL Calc [Mas s/Vol]on 06-13-2023 Cholesterol in LDL [Mass/Vol] 29.0 mg/dL [facility] Comment on above: <100 mg/dl [id number] 0-129 mg/dl NEAR OR ABOVE [id number] mg/dl BORDERLINE [id number] mg/dl HIGH>190 mg/dl VERY HIGH Cholesterol in VLDL Calc [Ma ss/Vol]on 06-13-2023 Cholesterol in VLDL [Mass/Vol] 24.8 mg/dL [facility] Laboratory - Chemistry and C hemistry - challengeon 06-13-2023 Cholesterol [Mass/Vol] 87 mg/dL <=200 [facility] Cholesterol in HDL [Mass/Vol] 34 mg/dL 40-60 [facility] Comment on above: > or =60 mg/dl - LOW CARDIOVASCULAR RISK<40 mg/dl - HIGH CARDIOVASCULAR RISK Triglyceride [Mass/Vol] 124 mg/dL <=150 [facility] Serum or plasma total choles terol/high density lipoprotein (HDL) cholesterol mass yulia 06-13-2023 Cholesterol.total/Chol esterol in HDL [Mass ratio] 2.6 {ratio} [facility] Comment on above: 3.3 - 4.4 LOW RISK4. 4 - 7.1 AVERAGE RISK7.1 - 11.0 MODERATE RISK>11.0 HIGH RISK A1C HEMOGLOBINon 03-12-2023 HbA1c (Bld) [Mass fraction] 7.1 % [employer] Other Glucose - FINGER STICKon Glucose [Mass/Vol] 151 mg/dL [employer] Other HbA1c (Bld) [Mass fraction]o n 03-12-2023 A1C HEMOGLOBIN [employer] Other CT CHEST WO CONon 08-09-2022 CT [...] HAZEL SCHILLING Date: 2022-08-09 14:00 Normal [facility] A1C HEMOGLOBINon 06-26-2022 HbA1c (Bld) [Mass fraction] 7.4 % [employer] Other Glucose - FINGER STICKon Glucose [Mass/Vol] 267 mg/dL [employer] Other HbA1c (Bld) [Mass fraction]o n 06-26-2022 A1C HEMOGLOBIN [employer] Other PTH INTACTon 06-26-2022 PTH, Intact 37 pg/mL Normal 15-65 [facility] Comment on above: Performed By: #### C MP, CMADM #### [facility] [address] [place] [address] Dr. Mirza Sadler FERRITINon 06-25-2022 Ferritin [Mass/Vol] 269.0 ng/mL Normal 26.0-388.0 [facility] Comment on above: Performed By: #### B BUSINESS LIAISON MANAGER #### [facility] [address] [place] [address] Dr. Mirza Sadler HEMOGRAM AND PLATELon 2022 Hematocrit (Bld) [Volume fraction] 44.7 % Normal 42.0-54.0 [facility] Comment on above: Performed By: #### P T, PTT #### [facility] [address] [place] [address] Dr. Mirza Sadler Hemoglobin (Bld) [Mass/Vol] 15.1 g/dL Normal 14.0-18.0 [facility] Comment on above: Performed By: #### P T, PTT #### [facility] [address] [place] [address] Dr. Mirza Sadler MCH (RBC) [Entitic mass] 30.0 pg Normal 25.9-34.0 [facility] Comment on above: Performed By: #### P T, PTT #### [facility] [address] [place] [address] Dr. Mirza Sadler MCHC (RBC) [Mass/Vol] 33.8 g/dL Normal 29.9-35.2 [facility] Comment on above: Performed By: #### P T, PTT #### [facility] [address] [place] [address] Dr. Mirza Sadler MCV (RBC) [Entitic vol] 88.9 fL Normal 80.0-94.0 [facility] Comment on above: Performed By: #### P T, PTT #### [facility] [address] [place] [address] Dr. Mirza Sadler PLT 199 103/ul Normal 150-450 [facility] Comment on above: Performed By: #### P T, PTT #### [facility] [address] [place] [address] Dr. Mirza Sadler RBC 5.03 106/ul Normal 4.70-6.10 [facility] Comment on above: Performed By: #### P T, PTT #### [facility] [address] [place] [address] Dr. Mirza Sadler WBC 8.7 103/ul Normal 4.0-11.0 [facility] Comment on above: Performed By: #### P T, PTT #### [facility] [address] [place] [address] Dr. Mirza Sadler IRON AND TIBCon 06-25-2022 % SATURATION 28.6 % Normal [facility] Comment on above: Performed By: #### B BUSINESS LIAISON MANAGER #### [facility] [address] [place] [address] Dr. Mirza Sadler Iron [Mass/Vol] 82.0 ug/dL Normal 65.0-175.0 [facility] Comment on above: Performed By: #### B BUSINESS LIAISON MANAGER #### [facility] [address] [place] [address] Dr. Mirza Sadler TIBC DIRECT 287.0 ug/dL Normal 250.0-450. 0 [facility] Comment on above: Performed By: #### B BUSINESS LIAISON MANAGER #### [facility] [address] [place] [address] Dr. Mirza Sadler MAGNESIUMon 06-25-2022 Magnesium [Mass/Vol] 2.0 mg/dL Normal 1.8-2.4 [facility] Comment on above: Performed By: #### B BUSINESS LIAISON MANAGER #### [facility] [address] [place] [address] Dr. Mirza Sadler RENAL FUNCTION PANELon 06-25 Albumin [Mass/Vol] 4.2 g/dL Normal 3.4-5.0 [facility] Comment on above: Performed By: #### B BUSINESS LIAISON MANAGER #### [facility] [address] [place] [address] Dr. Mirza Sadler Calcium [Mass/Vol] 9.3 mg/dL Normal 8.5-10.1 [facility] Comment on above: Performed By: #### B BUSINESS LIAISON MANAGER #### [facility] [address] [place] [address] Dr. Mirza Sadler Chloride [Moles/Vol] 108 mmol/L Critically high 98-107 [facility] Comment on above: Performed By: #### B BUSINESS LIAISON MANAGER #### [facility] [address] [place] [address] Dr. Mirza Sadler CO2 [Moles/Vol] 29.5 mmol/L Normal 21.0-32.0 [facility] Comment on above: Performed By: #### B BUSINESS LIAISON MANAGER #### [facility] [address] [place] [address] Dr. Mirza Sadler Creatinine [Mass/Vol] 1.87 mg/dL Critically high 0.70-1.30 [facility] Comment on above: Performed By: #### B BUSINESS LIAISON MANAGER #### [facility] [address] [place] [address] Dr. Mirza Sadler EGFR-AF MONEGASQUE 43 mL/min/1.73m2 Critically low >=60 [facility] Comment on above: Performed By: #### B BUSINESS LIAISON MANAGER #### [facility] [address] [place] [address] Dr. Mirza Sadler EGFR-NON AF MONEGASQUE 36 mL/min/1.73m2 Critically low >=60 [facility] Comment on above: Performed By: #### B BUSINESS LIAISON MANAGER #### [facility] [address] [address] [address] Mirza Sadler Glucose [Mass/Vol] 181 mg/dL Critically high 74-106 [facility] Comment on above: Performed By: #### B BUSINESS LIAISON MANAGER #### [facility] [address] [address] [address] Mirza Sadler Phosphate [Mass/Vol] 4.8 mg/dL Critically high 2.6-4.7 [facility] Comment on above: Performed By: #### B BUSINESS LIAISON MANAGER #### [facility] [address] [place] [address] Dr. Mirza Sadler Potassium [Moles/Vol] 4.8 mmol/L Normal 3.5-5.1 [facility] Comment on above: Performed By: #### B BUSINESS LIAISON MANAGER #### [facility] [address] [place] [address] Dr. Mirza Sadler Sodium [Moles/Vol] 146 mmol/L Critically high 136-145 [facility] Comment on above: Performed By: #### B BUSINESS LIAISON MANAGER #### [facility] [address] [address] [address] Mirza Sadler Urea nitrogen [Mass/Vol] 40.0 mg/dL Critically high 7.0-18.0 [facility] Comment on above: Performed By: #### B BUSINESS LIAISON MANAGER #### [facility] [address] [place] [address] Dr. Mirza Sadler UA RANDOM W/MICROSCOPICon BACTERIA NONE SEEN Normal NONE SEEN [facility] Comment on above: Performed By: #### H STROPN #### [facility] [address] [place] [address] Dr. Mirza Sadler Bilirubin Ql (U) Negative Normal NEGATIVE [facility] Comment on above: Performed By: #### H STROPN #### [facility] [address] [place] [address] Dr. Mirza Sadler CAST NONE SEEN Normal NONE SEEN [facility] Comment on above: Performed By: #### H STROPN #### [facility] [address] [place] [address] Dr. Mirza Sadler Clarity (U) CLEAR Normal CLEAR [facility] Comment on above: Performed By: #### H STROPN #### [facility] [address] [place] [address] Dr. Mirza Sadler Color (U) LT. YELLOW Normal YELLOW [facility] Comment on above: Performed By: #### H STROPN #### [facility] [address] [place] [address] Dr. Mirza Sadler Crystals LM Nom (Urine sed) NONE SEEN Normal NONE SEEN [facility] Comment on above: Performed By: #### H STROPN #### [facility] [address] [place] [address] Dr. Mirza Sadler Epithelial cells LM Ql (Urine sed) FEW Abnormal NONE SEEN /RARE [facility] Comment on above: Performed By: #### H STROPN #### [facility] [address] [place] [address] Dr. Mirza Sadler Glucose Ql (U) 500 mg/dl Abnormal NEGATIVE [facility] Comment on above: Performed By: #### H STROPN #### [facility] [address] [place] [address] Dr. Mirza Sadler Hemoglobin Ql (U) Negative Normal NEGATIVE The [facility] Comment on above: Performed By: #### H STROPN #### [facility] [address] [place] [address] Dr. Mirza Sadler Ketones Ql (U) Negative Normal NEGATIVE [facility] Comment on above: Performed By: #### H STROPN #### [facility] [address] [place] [address] Dr. Mirza Sadler LEUKOCYTES Negative Normal NEGATIVE [facility] Comment on above: Performed By: #### H STROPN #### [facility] [address] [place] [address] Dr. Mirza Sadler MUCOUS NONE SEEN Normal NONE SEEN [facility] Comment on above: Performed By: #### H STROPN #### [facility] [address] [place] [address] Dr. Mirza Sadler Nitrite Ql (U) Negative Normal NEGATIVE [facility] Comment on above: Performed By: #### H STROPN #### [facility] [address] [place] [address] Dr. Mirza Sadler pH (U) 5.5 [pH] Normal 5-9 [facility] Comment on above: Performed By: #### H STROPN #### [facility] [address] [place] [address] Dr. Mirza Sadler RBC 0-2 Normal 0-2 [facility] Comment on above: Performed By: #### H STROPN #### [facility] [address] [place] [address] Dr. Mirza Sadler SPEC GRAVITY 1.015 Normal 1.005-<=1. 025 [facility] Comment on above: Performed By: #### H STROPN #### [facility] [address] [place] [address] Dr. Mirza Sadler UA PROTEIN Negative Normal NEGATIVE/ TRACE [facility] Comment on above: Performed By: #### H STROPN #### [facility] [address] [place] [address] Dr. Mirza Sadler Urobilinogen Qn (U) 0.2 {Luisito'U}/dL Normal 0.2 - 1. 0 [facility] Comment on above: Performed By: #### H STROPN #### [facility] [address] [place] [address] Dr. Mirza Sadler WBC NONE SEEN Normal NONE SEEN [facility] Comment on above: Performed By: #### H STROPN #### [facility] [address] [place] [address] Dr. Mirza Sadler URIC ACID SERUMon 06-25-2022 Urate [Mass/Vol] 6.1 mg/dL Normal 3.5-7.2 [facility] Comment on above: Performed By: #### B BUSINESS LIAISON MANAGER #### [facility] [address] [place] [address] Dr. Mirza Sadler URINE T PROTEIN CREAT RATIOo n 06-25-2022 Protein (U) [Mass/Vol] 9.7 mg/dL Normal <=12.0 Th [facility] Comment on above: Performed By: #### C TANIA, CMADM #### [facility] [address] [place] [address] Dr. Mirza Sadler UR PROT CREAT RAT 0.14 Normal [facility] Comment on above: Performed By: #### C TANIA, CMADM #### [facility] [address] [place] [address] Dr. Mirza Sadler URINE CREAT 71.45 mg/dL Normal 20.00-300. 00 [facility] Comment on above: Performed By: #### C TANIA, DOMDM #### [facility] [address] [place] [address] Dr. Mirza Sadler VITAMIN D 25 OHon 06-25-2022 VIT D 25-OH 44.7 ng/mL Normal [facility] Comment on above: Performed By: #### E RUR #### [facility] [address] [place] [address] Dr. Mirza Sadler VIT D RANGES SEE BELOW Normal [facility] Comment on above: Result Comment: <20 ng/mL Vit D deficient 20 - <30 ng/mL Vit D insufficient 30 - 100 ng/mL Vit D sufficient >100 ng/mL Potential Toxicity Performed By: #### E RUR #### [facility] [address] [place] [address] Dr. Mirza Sadler LIPID PROFILEon 06-18-2022 CHOL-HDL RATIO NORM SEE BELOW Normal [facility] Comment on above: Result Comment: 3.3 - 4.4 LOW RISK 4.4 - 7.1 AVERAGE RISK 7.1 - 11.0 MODERATE RISK >11.0 HIGH RISK Performed By: #### H STROPN #### [facility] [address] [place] [address] Dr. Mirza Sadler Cholesterol [Mass/Vol] 136 mg/dL Normal <=200 Th [facility] Comment on above: Performed By: #### H STROPN #### [facility] [address] [place] [address] Dr. iMrza Sadler Cholesterol in HDL [Mass/Vol] 38 mg/dL Critically low 40-60 [facility] Comment on above: Performed By: #### H STROPN #### [facility] [address] [address] [address] Mirza Sadler Cholesterol in LDL [Mass/Vol] 69.6 mg/dL Normal [facility] Comment on above: Performed By: #### H STROPN #### [facility] [address] [address] [address] Mirza Sadler Cholesterol.total/Chol esterol in HDL [Mass ratio] 3.6 {ratio} Normal [facility] Comment on above: Performed By: #### H STROPN #### [facility] [address] [address] [address] Mirza Sadler HDL NORMAL > or = 60 mg/dl - LO W CARDIOVASCULAR RISK <40 mg/dl - HIGH CARDIOVASCULAR RISK Normal [facility] Comment on above: Performed By: #### H STROPN #### [facility] [address] [address] [address] Mirza Sadler LDL CALC NORMAL SEE BELOW Normal [facility] Comment on above: Result Comment: <100 mg/dl OPTIMAL 100 - 129 mg/dl NEAR OR ABOVE OPTIMAL 130 - 159 mg/dl BORDERLINE HIGH 160 - 189 mg/dl HIGH >190 mg/dl VERY HIGH Performed By: #### H STROPN #### [facility] [address] [address] [address] Mirza Sadler Triglyceride [Mass/Vol] 142 mg/dL Normal <=150 [facility] Comment on above: Performed By: #### H STROPN #### [facility] [address] [address] [address] Mirza Sadler VLDL CALC 28.4 mg/dL Normal [facility] Comment on above: Performed By: #### H STROPN #### [facility] [address] [address] [address] CHEST WO CONon [...] HIGINIO FLANAGAN Date: 2022-06-05 16:58 Normal [facility] CT CHEST WO [facility] [employer] Other PROF CHEM 8 (BAS METB)on Anion gap [Moles/Vol] 10.2 mmol/L Normal [facility] Comment on above: Performed By: #### B BUSINESS LIAISON MANAGER #### [facility] [address] [place] [address] Dr. Mirza Sadler Calcium [Mass/Vol] 8.9 mg/dL Normal 8.5-10.1 [facility] Comment on above: Performed By: #### B BUSINESS LIAISON MANAGER #### [facility] [address] [address] [address] Mirza Sadler Chloride [Moles/Vol] 101 mmol/L Normal 98-107 [facility] Comment on above: Performed By: #### B BUSINESS LIAISON MANAGER #### [facility] [address] [address] [address] Mirza Sadler CO2 [Moles/Vol] 31.2 mmol/L Normal 21.0-32.0 [facility] Comment on above: Performed By: #### B BUSINESS LIAISON MANAGER #### [facility] [address] [address] [address] Mirza Sadler Creatinine [Mass/Vol] 1.91 mg/dL Critically high 0.70-1.30 [facility] Comment on above: Performed By: #### B BUSINESS LIAISON MANAGER #### [facility] [address] [address] [address] Mirza Sadler EGFR-AF MONEGASQUE 42 mL/min/1.73m2 Critically low >=60 [facility] Comment on above: Performed By: #### B BUSINESS LIAISON MANAGER #### [facility] [address] [address] [address] Mirza Sadler EGFR-NON AF MONEGASQUE 35 mL/min/1.73m2 Critically low >=60 [facility] Comment on above: Performed By: #### B BUSINESS LIAISON MANAGER #### [facility] [address] [address] [address] Mirza Sadler Glucose [Mass/Vol] 242 mg/dL Critically high 74-106 [facility] Comment on above: Performed By: #### B BUSINESS LIAISON MANAGER #### [facility] [address] [address] [address] Mirza Sadler Potassium [Moles/Vol] 4.4 mmol/L Normal 3.5-5.1 [facility] Comment on above: Performed By: #### B BUSINESS LIAISON MANAGER #### [facility] [address] [address] [address] Mirza Sadler Sodium [Moles/Vol] 138 mmol/L Normal 136-145 [facility] Comment on above: Performed By: #### B BUSINESS LIAISON MANAGER #### [facility] [address] [address] [address] Mirza Sadler Urea nitrogen [Mass/Vol] 33.0 mg/dL Critically high 7.0-18.0 [facility] Comment on above: Performed By: #### B BUSINESS LIAISON MANAGER #### [facility] [address] [address] [address] Mirza Sadler Urea nitrogen/Creatinine [Mass ratio] 17.3 mg/mg Normal [facility] Comment on above: Performed By: #### B BUSINESS LIAISON MANAGER #### [facility] [address] [address] [address] Mirza Sadler PROF CHEM 8 (BAS METB)on Anion gap [Moles/Vol] 10.7 mmol/L Normal Th [facility] Comment on above: Performed By: #### P T, PTT #### [facility] [address] [address] [address] Mirza Sadler Calcium [Mass/Vol] 8.9 mg/dL Normal 8.5-10.1 [facility] Comment on above: Performed By: #### P T, PTT #### [facility] [address] [address] [address] Mirza Sadler Chloride [Moles/Vol] 104 mmol/L Normal 98-107 [facility] Comment on above: Performed By: #### P T, PTT #### [facility] [address] [address] [address] Mirza Sadler CO2 [Moles/Vol] 29.4 mmol/L Normal 21.0-32.0 [facility] Comment on above: Performed By: #### P T, PTT #### [facility] [address] [address] [address] Mirza Sadler Creatinine [Mass/Vol] 1.75 mg/dL Critically high 0.70-1.30 [facility] Comment on above: Performed By: #### P T, PTT #### [facility] [address] [address] [address] Mirza Sadler EGFR-AF MONEGASQUE 47 mL/min/1.73m2 Critically low >=60 [facility] Comment on above: Performed By: #### P T, PTT #### [facility] [address] [address] [address] Mirza Sadler EGFR-NON AF MONEGASQUE 39 mL/min/1.73m2 Critically low >=60 [facility] Comment on above: Performed By: #### P T, PTT #### [facility] [address] [address] [address] Mirza Sadler Glucose [Mass/Vol] 191 mg/dL Critically high 74-106 [facility] Comment on above: Performed By: #### P T, PTT #### [facility] [address] [address] [address] Mirza Sadler Potassium [Moles/Vol] 4.1 mmol/L Normal 3.5-5.1 [facility] Comment on above: Performed By: #### P T, PTT #### [facility] [address] [address] [address] Mirza Sadler Sodium [Moles/Vol] 140 mmol/L Normal 136-145 [facility] Comment on above: Performed By: #### P T, PTT #### [facility] [address] [address] [address] Mirza Sadler Urea nitrogen [Mass/Vol] 31.0 mg/dL Critically high 7.0-18.0 [facility] Comment on above: Performed By: #### P T, PTT #### [facility] [address] [address] [address] Mirza Sadler Urea nitrogen/Creatinine [Mass ratio] 17.7 mg/mg Normal [facility] Comment on above: Performed By: #### P T, PTT #### [facility] [address] [address] [address] Mirza Sadler XR CHEST 2 Von [...] by: HIGINIO FLANAGAN Date: 2022-03-22 16:12 Normal [facility] A1C HEMOGLOBINon 03-20-2022 HbA1c (Bld) [Mass fraction] 6.7 % [employer] Other Glucose - FINGER STICKon Glucose [Mass/Vol] 193 mg/dL [employer] Other HbA1c (Bld) [Mass fraction]o n 03-20-2022 A1C HEMOGLOBIN [employer] Other BNPon 03-13-2022 Natriuretic peptide B (Bld) [Mass/Vol] 4825.0 pg/mL Critically high <=900.0 [facility] Comment on above: Performed By: #### E RUR #### [facility] [address] [place] [address] Dr. Mirza Sadler CBC AUTO DIFFon 03-13-2022 BASO # 0.0 103/ul Normal 0.0-0.1 [facility] Comment on above: Performed By: #### E RUR #### [facility] [address] [place] [address] Dr. Mirza Sadler Basophils/100 WBC (Bld) 0.6 % Normal 0.2-2.0 [facility] Comment on above: Performed By: #### E RUR #### [facility] [address] [place] [address] Dr. Mirza Sadler EO # 0.1 103/ul Normal 0.0-0.7 [facility] Comment on above: Performed By: #### E RUR #### [facility] [address] [place] [address] Dr. Mirza Sadler Eosinophils/100 WBC (Bld) 1.8 % Normal 0.9-7.0 [facility] Comment on above: Performed By: #### E RUR #### [facility] [address] [place] [address] Dr. Mirza Sadler Erythrocyte distribution width (RBC) [Ratio] 14.4 % Normal 11.0-15.0 [facility] Comment on above: Performed By: #### E RUR #### [facility] [address] [place] [address] Dr. Mirza Sadler Hematocrit (Bld) [Volume fraction] 36.1 % Critically low 42.0-54.0 [facility] Comment on above: Performed By: #### E RUR #### [facility] [address] [place] [address] Dr. Mirza Sadler Hemoglobin (Bld) [Mass/Vol] 11.9 g/dL Critically low 14.0-18.0 [facility] Comment on above: Performed By: #### E RUR #### [facility] [address] [place] [address] Dr. Mirza Sadler IG # 0.02 10e3/ul Normal 0.00-0.03 [facility] Comment on above: Performed By: #### E RUR #### [facility] [address] [place] [address] Dr. Mirza Sadler IG % 0.3 % Normal 0.0-0.5 [facility] Comment on above: Performed By: #### E RUR #### [facility] [address] [place] [address] Dr. Mirza Sadler LYMPH # 1.5 103/ul Normal 1.2-3.8 [facility] Comment on above: Performed By: #### E RUR #### [facility] [address] [place] [address] Dr. Mirza Sadler Lymphocytes/100 WBC (Bld) 22.6 % Normal 20.5-60.0 [facility] Comment on above: Performed By: #### E RUR #### [facility] [address] [place] [address] Dr. Mirza Sadler MANUAL DIFF REQ NO Normal [facility] Comment on above: Performed By: #### E RUR #### [facility] [address] [place] [address] Dr. Mirza Sadler MCH (RBC) [Entitic mass] 29.0 pg Normal 25.9-34.0 [facility] Comment on above: Performed By: #### E RUR #### [facility] [address] [place] [address] Dr. Mirza Sadler MCHC (RBC) [Mass/Vol] 33.0 g/dL Normal 29.9-35.2 [facility] Comment on above: Performed By: #### E RUR #### [facility] [address] [place] [address] Dr. Mirza Sadler MCV (RBC) [Entitic vol] 88.0 fL Normal 80.0-94.0 [facility] Comment on above: Performed By: #### E RUR #### [facility] [address] [place] [address] Dr. Mirza Sadler MONO # 0.7 103/ul Normal 0.3-0.8 [facility] Comment on above: Performed By: #### E RUR #### [facility] [address] [place] [address] Dr. Mirza Sadler Monocytes/100 WBC (Bld) 10.2 % Normal 1.7-12.0 [facility] Comment on above: Performed By: #### E RUR #### [facility] [address] [place] [address] Dr. Mirza Sadler NEUT # 4.3 103/ul Normal 1.4-6.5 [facility] Comment on above: Performed By: #### E RUR #### [facility] [address] [place] [address] Dr. Mirza Sadler Neutrophils/100 WBC (Bld) 64.5 % Normal 43.0-75.0 [facility] Comment on above: Performed By: #### E RUR #### [facility] [address] [place] [address] Dr. Mirza Sadler Platelet mean volume (Bld) [Entitic vol] 9.7 fL Normal 9.5-13.5 [facility] Comment on above: Performed By: #### E RUR #### [facility] [address] [place] [address] Dr. Mirza Sadler PLT 149 103/ul Critically low 150-450 [facility] Comment on above: Performed By: #### E RUR #### [facility] [address] [place] [address] Dr. Mirza Sadler RBC 4.10 106/ul Critically low 4.70-6.10 [facility] Comment on above: Performed By: #### E RUR #### [facility] [address] [address] [address] Mirza Sadler WBC 6.6 103/ul Normal 4.0-11.0 [facility] Comment on above: Performed By: #### E RUR #### [facility] [address] [place] [address] Dr. Mirza Sadler PROF CHEM 8 (BAS METB)on Anion gap [Moles/Vol] 14.6 mmol/L Normal [facility] Comment on above: Performed By: #### E RUR #### [facility] [address] [place] [address] Dr. Mirza Sadler Calcium [Mass/Vol] 8.5 mg/dL Normal 8.5-10.1 [facility] Comment on above: Performed By: #### E RUR #### [facility] [address] [place] [address] Dr. Mirza Sadler Chloride [Moles/Vol] 104 mmol/L Normal 98-107 [facility] Comment on above: Performed By: #### E RUR #### [facility] [address] [place] [address] Dr. Mirza Sadler CO2 [Moles/Vol] 22.7 mmol/L Normal 21.0-32.0 [facility] Comment on above: Performed By: #### E RUR #### [facility] [address] [place] [address] Dr. Mirza Sadler Creatinine [Mass/Vol] 1.78 mg/dL Critically high 0.70-1.30 [facility] Comment on above: Performed By: #### E RUR #### [facility] [address] [place] [address] Dr. Mirza Sadler EGFR-AF MONEGASQUE 46 mL/min/1.73m2 Critically low >=60 [facility] Comment on above: Performed By: #### E RUR #### [facility] [address] [place] [address] Dr. Mirza Sadler EGFR-NON AF MONEGASQUE 38 mL/min/1.73m2 Critically low >=60 [facility] Comment on above: Performed By: #### E RUR #### [facility] [address] [place] [address] Dr. Mirza Sadler Glucose [Mass/Vol] 121 mg/dL Critically high 74-106 T [facility] Comment on above: Performed By: #### E RUR #### [facility] [address] [place] [address] Dr. Mirza Sadler Potassium [Moles/Vol] 3.3 mmol/L Critically low 3.5-5.1 [facility] Comment on above: Performed By: #### E RUR #### [facility] [address] [place] [address] Dr. Mirza Sadler Sodium [Moles/Vol] 138 mmol/L Normal 136-145 [facility] Comment on above: Performed By: #### E RUR #### [facility] [address] [place] [address] Dr. Mirza Sadler Urea nitrogen [Mass/Vol] 30.0 mg/dL Critically high 7.0-18.0 [facility] Comment on above: Performed By: #### E RUR #### [facility] [address] [place] [address] Dr. Mirza Sadler Urea nitrogen/Creatinine [Mass ratio] 16.9 mg/mg Normal [facility] Comment on above: Performed By: #### E RUR #### [facility] [address] [place] [address] Dr. Mirza Sadler BNPon 03-12-2022 Natriuretic peptide B (Bld) [Mass/Vol] 7452.0 pg/mL Critically high <=900.0 [facility] Comment on above: Performed By: #### C MP, CMADM #### [facility] [address] [place] [address] Dr. Mirza Sadler CBC AUTO DIFFon 03-12-2022 BASO # 0.0 103/ul Normal 0.0-0.1 [facility] Comment on above: Performed By: #### P T, PTT #### [facility] [address] [place] [address] Dr. Mirza Sadler Basophils/100 WBC (Bld) 0.4 % Normal 0.2-2.0 [facility] [place] Comment on above: Performed By: #### P T, PTT #### [facility] [address] [place] [address] Dr. Mirza Sadler EO # 0.0 103/ul Normal 0.0-0.7 [facility] Comment on above: Performed By: #### P T, PTT #### [facility] [address] [place] [address] Dr. Mirza Sadler Eosinophils/100 WBC (Bld) 0.2 % Critically low 0.9-7.0 [facility] Comment on above: Performed By: #### P T, PTT #### [facility] [address] [place] [address] Dr. Mirza Sadler Erythrocyte distribution width (RBC) [Ratio] 14.6 % Normal 11.0-15.0 [facility] Comment on above: Performed By: #### P T, PTT #### [facility] [address] [place] [address] Dr. Mirza Sadler Hematocrit (Bld) [Volume fraction] 37.8 % Critically low 42.0-54.0 [facility] Comment on above: Performed By: #### P T, PTT #### [facility] [address] [place] [address] Dr. Mirza Sadler Hemoglobin (Bld) [Mass/Vol] 12.2 g/dL Critically low 14.0-18.0 [facility] Comment on above: Performed By: #### P T, PTT #### [facility] [address] [place] [address] Dr. Mirza Sadler IG # 0.03 10e3/ul Normal 0.00-0.03 [facility] Comment on above: Performed By: #### P T, PTT #### [facility] [address] [place] [address] Dr. Mirza Sadler IG % 0.3 % Normal 0.0-0.5 [facility] Comment on above: Performed By: #### P T, PTT #### [facility] [address] [address] [address] Mirza Sadler LYMPH # 1.2 103/ul Normal 1.2-3.8 [facility] Comment on above: Performed By: #### P T, PTT #### [facility] [address] [address] [address] Mirza Sadler Lymphocytes/100 WBC (Bld) 11.5 % Critically low 20.5-60.0 [facility] Comment on above: Performed By: #### P T, PTT #### [facility] [address] [address] [address] Mirza Sadler MANUAL DIFF REQ NO Normal [facility] Comment on above: Performed By: #### P T, PTT #### [facility] [address] [place] [address] Dr. Mirza Sadler MCH (RBC) [Entitic mass] 29.0 pg Normal 25.9-34.0 [facility] Comment on above: Performed By: #### P T, PTT #### [facility] [address] [address] [address] Mirza Sadler MCHC (RBC) [Mass/Vol] 32.3 g/dL Normal 29.9-35.2 [facility] Comment on above: Performed By: #### P T, PTT #### [facility] [address] [address] [address] Mirza Sadler MCV (RBC) [Entitic vol] 89.8 fL Normal 80.0-94.0 [facility] Comment on above: Performed By: #### P T, PTT #### [facility] [address] [address] [address] Mirza Sadler MONO # 0.7 103/ul Normal 0.3-0.8 [facility] Comment on above: Performed By: #### P T, PTT #### [facility] [address] [address] [address] Mirza Sadler Monocytes/100 WBC (Bld) 6.8 % Normal 1.7-12.0 [facility] Comment on above: Performed By: #### P T, PTT #### [facility] [address] [address] [address] Mirza Sadler NEUT # 8.5 103/ul Critically high 1.4-6.5 [facility] Comment on above: Performed By: #### P T, PTT #### [facility] [address] [address] [address] Mirza Sadler Neutrophils/100 WBC (Bld) 80.8 % Critically high 43.0-75.0 [facility] Comment on above: Performed By: #### P T, PTT #### [facility] [address] [address] [address] Mirza Sadler Platelet mean volume (Bld) [Entitic vol] 9.8 fL Normal 9.5-13.5 [facility] Comment on above: Performed By: #### P T, PTT #### [facility] [address] [address] [address] Mirza Sadler PLT 165 103/ul Normal 150-450 [facility] Comment on above: Performed By: #### P T, PTT #### [facility] [address] [address] [address] Mirza Sadler RBC 4.21 106/ul Critically low 4.70-6.10 [facility] Comment on above: Performed By: #### P T, PTT #### [facility] [address] [place] [address] Dr. Mirza Sadler WBC 10.5 103/ul Normal 4.0-11.0 [facility] Comment on above: Performed By: #### P T, PTT #### [facility] [address] [place] [address] Dr. Mirza Sadler ECHOCARDIO M/2D COMPLETEon 1 05-13-2021 ECHOCARDIO M/2D COMPLETE Patient: LANI LIZAMA Exam Date: 03/12/2022 : 1950 Gender:M Ordering : DR OBDULIO ALVA . Admission #: [id number] Family : DR HARLEY CRESPO D.O. Order #: [id number] CLICK HERE TO VIEW EXAM ECHOCARDIOGRAM REPORT [...] Foreman M.D. on 03/13/2022 at 17:42 Normal [facility] PROF CHEM 8 (BAS METB)on Anion gap [Moles/Vol] 17.8 mmol/L Normal [facility] Comment on above: Performed By: #### C TANIA, DOMDM #### [facility] [address] [place] [address] Dr. Mirza Sadler Calcium [Mass/Vol] 8.6 mg/dL Normal 8.5-10.1 [facility] Comment on above: Performed By: #### C ATNIA, DOMDM #### [facility] [address] [place] [address] Dr. Mirza Sadler Chloride [Moles/Vol] 103 mmol/L Normal 98-107 [facility] Comment on above: Performed By: #### C TANIA, DOMDM #### [facility] [address] [address] [address] Mirza Sadler CO2 [Moles/Vol] 22.3 mmol/L Normal 21.0-32.0 [facility] Comment on above: Performed By: #### C TANIA, DOMDM #### [facility] [address] [address] [address] Mirza Sadler Creatinine [Mass/Vol] 1.81 mg/dL Critically high 0.70-1.30 [facility] Comment on above: Performed By: #### C TANIA, DOMDM #### [facility] [address] [address] [address] Mirza Sadler EGFR-AF MONEGASQUE 45 mL/min/1.73m2 Critically low >=60 [facility] Comment on above: Performed By: #### C TANIA, CMADM #### [facility] [address] [address] [address] Mirza Sadler EGFR-NON AF MONEGASQUE 37 mL/min/1.73m2 Critically low >=60 [facility] Comment on above: Performed By: #### C TANIA, CMADM #### [facility] [address] [address] [address] Mirza Sadler Glucose [Mass/Vol] 161 mg/dL Critically high 74-106 [facility] Comment on above: Performed By: #### C TANIA, CMADM #### [facility] [address] [place] [address] Dr. Mirza Sadler Potassium [Moles/Vol] 4.1 mmol/L Normal 3.5-5.1 [facility] Comment on above: Performed By: #### C TANIA, CMADM #### [facility] [address] [address] [address] Mirza Sadler Sodium [Moles/Vol] 139 mmol/L Normal 136-145 [facility] Comment on above: Performed By: #### C TANIA, DOMDM #### [facility] [address] [place] [address] Dr. Mirza Sadler Urea nitrogen [Mass/Vol] 28.0 mg/dL Critically high 7.0-18.0 [facility] Comment on above: Performed By: #### C TANIA, CMADM #### [facility] [address] [place] [address] Dr. Mirza Sadler Urea nitrogen/Creatinine [Mass ratio] 15.5 mg/mg Normal [facility] Comment on above: Performed By: #### C TANIA, CMADM #### [facility] [address] [place] [address] Dr. Mirza Sadler TROPONIN, HIGH SENSITIVITYon 03-12-2022 HSTROP 62469.5 pg/mL Critically high 4.0-76.1 [facility] Comment on above: Result Comment: CUT- OFF POINTS HAVE BEEN ESTABLISHED BASED ON THE FOURTH UNIVERSAL DEFINITIONS OF MYOCARDIAL INFARCTION. THE UPPER REFERENCE LIMIT (URL) OF TROPONIN, DEFINED THE 99TH PERCENTILE OF cTnI DISTRIBUTION IN A REFERENCE POPULATION, HAS BEEN CONFIRMED THE DECISION THRESHOLD FOR ID DIAGNOSIS. Performed By: #### C MP, CMADM #### [facility] [address] [place] [address] Dr. Mirza Sadler BNPon 03-11-2022 Natriuretic peptide B (Bld) [Mass/Vol] 1378.0 pg/mL Critically high <=900.0 [facility] Comment on above: Performed By: #### P T, PTT #### [facility] [address] [place] [address] Dr. Mirza Sadler CARDIAC PARUL 3-6on 2 CK [Catalytic activity/Vol] 139 U/L Normal 39-308 [facility] Comment on above: Performed By: #### E RUR #### [facility] [address] [place] [address] Dr. Mirza Sadler CK.MB [Mass/Vol] 7.50 ng/mL Critically high <=3.60 [facility] Comment on above: Performed By: #### E RUR #### [facility] [address] [place] [address] Dr. Mirza Sadler HSTROP 1419.3 pg/mL Critically high 4.0-76.1 [facility] Comment on above: Result Comment: CUT- OFF POINTS HAVE BEEN ESTABLISHED BASED ON THE FOURTH UNIVERSAL DEFINITIONS OF MYOCARDIAL INFARCTION. THE UPPER REFERENCE LIMIT (URL) OF TROPONIN, DEFINED THE 99TH PERCENTILE OF cTnI DISTRIBUTION IN A REFERENCE POPULATION, HAS BEEN CONFIRMED THE DECISION THRESHOLD FOR ID DIAGNOSIS. Performed By: #### E RUR #### [facility] [address] [place] [address] Dr. Mirza Sadler CBC AUTO DIFFon 03-11-2022 BASO # 0.1 103/ul Normal 0.0-0.1 [facility] Comment on above: Performed By: #### E RUR #### [facility] [address] [place] [address] Dr. Mirza Sadler Basophils/100 WBC (Bld) 0.5 % Normal 0.2-2.0 [facility] Comment on above: Performed By: #### E RUR #### [facility] [address] [place] [address] Dr. Mirza Sadler EO # 0.2 103/ul Normal 0.0-0.7 [facility] Comment on above: Performed By: #### E RUR #### [facility] [address] [place] [address] Dr. Mirza Sadler Eosinophils/100 WBC (Bld) 1.3 % Normal 0.9-7.0 [facility] Comment on above: Performed By: #### E RUR #### [facility] [address] [place] [address] Dr. Mirza Sadler Erythrocyte distribution width (RBC) [Ratio] 14.6 % Normal 11.0-15.0 [facility] Comment on above: Performed By: #### E RUR #### [facility] [address] [place] [address] Dr. Mirza Sadler Hematocrit (Bld) [Volume fraction] 43.1 % Normal 42.0-54.0 [facility] Comment on above: Performed By: #### E RUR #### [facility] [address] [place] [address] Dr. Mirza Sadler Hemoglobin (Bld) [Mass/Vol] 14.2 g/dL Normal 14.0-18.0 [facility] Comment on above: Performed By: #### E RUR #### [facility] [address] [place] [address] Dr. Mirza Sadler IG # 0.07 10e3/ul Critically high 0.00-0.03 [facility] Comment on above: Performed By: #### E RUR #### [facility] [address] [place] [address] Dr. Mirza Sadler IG % 0.5 % Normal 0.0-0.5 [facility] Comment on above: Performed By: #### E RUR #### [facility] [address] [place] [address] Dr. Mirza Sadler LYMPH # 1.3 103/ul Normal 1.2-3.8 [facility] Comment on above: Performed By: #### E RUR #### [facility] [address] [place] [address] Dr. Mirza Sadler Lymphocytes/100 WBC (Bld) 8.6 % Critically low 20.5-60.0 [facility] Comment on above: Performed By: #### E RUR #### [facility] [address] [place] [address] Dr. Mirza Sadler MANUAL DIFF REQ NO Normal [facility] Comment on above: Performed By: #### E RUR #### [facility] [address] [place] [address] Dr. Mirza Sadler MCH (RBC) [Entitic mass] 29.3 pg Normal 25.9-34.0 [facility] Comment on above: Performed By: #### E RUR #### [facility] [address] [place] [address] Dr. Mirza Sadler MCHC (RBC) [Mass/Vol] 32.9 g/dL Normal 29.9-35.2 [facility] Comment on above: Performed By: #### E RUR #### [facility] [address] [place] [address] Dr. Mirza Sadler MCV (RBC) [Entitic vol] 88.9 fL Normal 80.0-94.0 [facility] Comment on above: Performed By: #### E RUR #### [facility] [address] [place] [address] Dr. Mirza Sadler MONO # 0.7 103/ul Normal 0.3-0.8 [facility] Comment on above: Performed By: #### E RUR #### [facility] [address] [place] [address] Dr. Mirza Sadler Monocytes/100 WBC (Bld) 4.3 % Normal 1.7-12.0 [facility] Comment on above: Performed By: #### E RUR #### [facility] [address] [place] [address] Dr. Mirza Sadler NEUT # 12.8 103/ul Critically high 1.4-6.5 [facility] Comment on above: Performed By: #### E RUR #### [facility] [address] [place] [address] Dr. Mirza Sadler Neutrophils/100 WBC (Bld) 84.8 % Critically high 43.0-75.0 [facility] Comment on above: Performed By: #### E RUR #### [facility] [address] [place] [address] Dr. Mirza Sadler Platelet mean volume (Bld) [Entitic vol] 9.9 fL Normal 9.5-13.5 [facility] Comment on above: Performed By: #### E RUR #### [facility] [address] [place] [address] Dr. Mirza Sadler PLT 201 103/ul Normal 150-450 [facility] Comment on above: Performed By: #### E RUR #### [facility] [address] [place] [address] Dr. Mirza Sadler RBC 4.85 106/ul Normal 4.70-6.10 [facility] Comment on above: Performed By: #### E RUR #### [facility] [address] [place] [address] Dr. Mirza Sadler WBC 15.0 103/ul Critically high 4.0-11.0 [facility] Comment on above: Performed By: #### E RUR #### [facility] [address] [place] [address] Dr. Mirza Sadler CULTURE BLOODon 03-11-2022 Microscopic examination of blood, culture Culture Observations: NO GROWTH AT 5 DAYS. Normal [facility] Comment on above: Performed By: #### H STROPN #### [facility] [address] [place] [address] Dr. Mirza Sadler Microscopic examination of blood, culture Culture Observations: NO GROWTH AT 5 DAYS. Normal [facility] Comment on above: Performed By: #### H STROPN #### [facility] [address] [place] [address] Dr. Mirza Sadler Covid-19 PCR ([facility])on 03-01 SARS-CoV-2 (COVID-19) RNA RAMO+probe Ql (Unsp spec) Not detected Normal NOT DETECTED [facility] Comment on above: Result Comment: When [...] for this test is supported by the [employer] and Human Service's declaration that [...] used). Performed By: #### H STROPN #### [facility] [address] [place] [address] Dr. Mirza Sadler ER URINE PROFILEon 2 Bilirubin Ql (U) Negative Normal NEGATIVE [facility] Comment on above: Performed By: #### E RUR #### [facility] [address] [place] [address] Dr. Mirza Sadler Clarity (U) CLEAR Normal CLEAR [facility] Comment on above: Performed By: #### E RUR #### [facility] [address] [place] [address] Dr. Mirza Sadler Color (U) LT. YELLOW Normal YELLOW [facility] Comment on above: Performed By: #### E RUR #### [facility] [address] [place] [address] Dr. Mirza Sadler ERUVICKY A micrscopic examina tion will be performed if indicated. Normal [facility] Comment on above: Performed By: #### E RUR #### [facility] [address] [place] [address] Dr. Mirza Sadler Glucose Ql (U) >1000 Abnormal NEGATIVE [facility] Comment on above: Performed By: #### E RUR #### [facility] [address] [address] [address] Mirza Sadler Hemoglobin Ql (U) Negative Normal NEGATIVE [facility] Comment on above: Performed By: #### E RUR #### [facility] [address] [place] [address] Dr. Mirza Sadler Ketones Ql (U) 15 mg/dl Abnormal NEGATIVE [facility] Comment on above: Performed By: #### E RUR #### [facility] [address] [place] [address] Dr. Mirza Sadler LEUKOCYTES Negative Normal NEGATIVE [facility] Comment on above: Performed By: #### E RUR #### [facility] [address] [place] [address] Dr. Mirza Sadler Nitrite Ql (U) Negative Normal NEGATIVE [facility] Comment on above: Performed By: #### E RUR #### [facility] [address] [place] [address] Dr. Mirza Sadler pH (U) 5.0 [pH] Normal 5-9 [facility] Comment on above: Performed By: #### E RUR #### [facility] [address] [place] [address] Dr. Mirza Sadler SPEC GRAVITY 1.020 Normal 1.005-<=1. 025 [facility] Comment on above: Performed By: #### E RUR #### [facility] [address] [place] [address] Dr. Mirza Sadler UA PROTEIN TRACE Normal NEGATIVE/ TRACE [facility] Comment on above: Performed By: #### E RUR #### [facility] [address] [place] [address] Dr. Mirza Sadler UR MICRO IND NOT INDICATED Normal [facility] Comment on above: Performed By: #### E RUR #### [facility] [address] [place] [address] Dr. Mirza Sadler Urobilinogen Qn (U) 0.2 {Luisito'U}/dL Normal 0.2 - 1. 0 [facility] Comment on above: Performed By: #### E RUR #### [facility] [address] [place] [address] Dr. Mirza Sadler POINT OF CARE GLUCOSEon 03-01 Glucose [Mass/Vol] 161 mg/dL Critically high 74-106 [facility] Comment on above: Performed By: #### P T, PTT #### [facility] [address] [place] [address] Dr. Mirza Sadler PROF 14(COMP METB)on 022 Albumin [Mass/Vol] 4.3 g/dL Normal 3.4-5.0 [facility] Comment on above: Performed By: #### P T, PTT #### [facility] [address] [place] [address] Dr. Mirza Sadler Albumin/Globulin [Mass ratio] 1.1 {ratio} Normal [facility] Comment on above: Performed By: #### P T, PTT #### [facility] [address] [place] [address] Dr. Mirza Sadler ALP [Catalytic activity/Vol] 156 U/L Critically high 46-116 [facility] Comment on above: Performed By: #### P T, PTT #### [facility] [address] [place] [address] Dr. Mirza Sadler ALT [Catalytic activity/Vol] 24 U/L Normal 16-63 [facility] Comment on above: Performed By: #### P T, PTT #### [facility] [address] [place] [address] Dr. Mirza Sadler Anion gap [Moles/Vol] 16.7 mmol/L Normal [facility] Comment on above: Performed By: #### P T, PTT #### [facility] [address] [place] [address] Dr. Mirza Sadler AST [Catalytic activity/Vol] 21 U/L Normal 15-37 [facility] Comment on above: Performed By: #### P T, PTT #### [facility] [address] [place] [address] Dr. Mirza Sadler Bilirubin [Mass/Vol] 1.1 mg/dL Critically high 0.2-1.0 [facility] Comment on above: Performed By: #### P T, PTT #### [facility] [address] [place] [address] Dr. Mirza Sadler Calcium [Mass/Vol] 8.8 mg/dL Normal 8.5-10.1 [facility] Comment on above: Performed By: #### P T, PTT #### [facility] [address] [address] [address] Mirza Sadler Chloride [Moles/Vol] 105 mmol/L Normal 98-107 [facility] Comment on above: Performed By: #### P T, PTT #### [facility] [address] [place] [address] Dr. Mirza Sadler CO2 [Moles/Vol] 25.0 mmol/L Normal 21.0-32.0 [facility] Comment on above: Performed By: #### P T, PTT #### [facility] [address] [place] [address] Dr. Mirza Sadler Creatinine [Mass/Vol] 1.57 mg/dL Critically high 0.70-1.30 [facility] Comment on above: Performed By: #### P T, PTT #### [facility] [address] [place] [address] Dr. Mirza Sadler EGFR-AF MONEGASQUE 53 mL/min/1.73m2 Critically low >=60 [facility] Comment on above: Performed By: #### P T, PTT #### [facility] [address] [place] [address] Dr. Mirza Sadler EGFR-NON AF MONEGASQUE 44 mL/min/1.73m2 Critically low >=60 [facility] Comment on above: Performed By: #### P T, PTT #### [facility] [address] [place] [address] Dr. Mirza Sadler Globulin (S) [Mass/Vol] 3.9 g/dL Normal [facility] Comment on above: Performed By: #### P T, PTT #### [facility] [address] [place] [address] Dr. Mirza Sadler Glucose [Mass/Vol] 188 mg/dL Critically high 74-106 [facility] Comment on above: Performed By: #### P T, PTT #### [facility] [address] [address] [address] Mirza Sadler Potassium [Moles/Vol] 3.7 mmol/L Normal 3.5-5.1 [facility] Comment on above: Performed By: #### P T, PTT #### [facility] [address] [place] [address] Dr. Mirza Sadler Protein [Mass/Vol] 8.2 g/dL Normal 6.4-8.2 [facility] Comment on above: Performed By: #### P T, PTT #### [facility] [address] [place] [address] Dr. Mirza Sadler Sodium [Moles/Vol] 143 mmol/L Normal 136-145 [facility] Comment on above: Performed By: #### P T, PTT #### [facility] [address] [place] [address] Dr. Mirza Sadler Urea nitrogen [Mass/Vol] 20.0 mg/dL Critically high 7.0-18.0 [facility] Comment on above: Performed By: #### P T, PTT #### [facility] [address] [place] [address] Dr. Mirza Sadler Urea nitrogen/Creatinine [Mass ratio] 12.7 mg/mg Normal [facility] Comment on above: Performed By: #### P T, PTT #### [facility] [address] [place] [address] Dr. Mirza Sadler RESPIRATORY PANEL PLUSon Adenovirus Not detected Normal NOT DETECTED [facility] Comment on above: Performed By: #### P T, PTT #### [facility] [address] [place] [address] Dr. Mirza Sadler B. Parapertusis Not detected Normal NOT DETECTED [facility] Comment on above: Performed By: #### P T, PTT #### [facility] [address] [place] [address] Dr. Mirza Ball Pertussis Not detected Normal NOT DETECTED [facility] Comment on above: Performed By: #### P T, PTT #### [facility] [address] [place] [address] Dr. Mirza Sadler Chlamydia Pneumoniae Not detected Normal NOT DETECTED [facility] Comment on above: Performed By: #### P T, PTT #### [facility] [address] [place] [address] Dr. Mirza Sadler Coronavirus 229E Not detected Normal NOT DETECTED [facility] Comment on above: Performed By: #### P T, PTT #### [facility] [address] [place] [address] Dr. Mirza Sadler Coronavirus HKU1 Not detected Normal NOT DETECTED The [facility] Comment on above: Performed By: #### P T, PTT #### [facility] [address] [place] [address] Dr. Mirza Sadler Coronavirus NL63 Not detected Normal NOT DETECTED [facility] Comment on above: Performed By: #### P T, PTT #### [facility] [address] [place] [address] Dr. Mirza Sadler Coronavirus OC43 Not detected Normal NOT DETECTED [facility] Comment on above: Performed By: #### P T, PTT #### [facility] [address] [place] [address] Dr. Mirza Sadler Influenza A H1 2009 Not detected Normal NOT DETECTED [facility] Comment on above: Performed By: #### P T, PTT #### [facility] [address] [place] [address] Dr. Mirza Sadler Influenza A H3 Not detected Normal NOT DETECTED [facility] Comment on above: Performed By: #### P T, PTT #### [facility] [address] [place] [address] Dr. Mirza Sadler Influenza B Not detected Normal NOT DETECTED [facility] Comment on above: Performed By: #### P T, PTT #### [facility] [address] [place] [address] Dr. Mirza Sadler Metapneumovirus Not detected Normal NOT DETECTED [facility] Comment on above: Performed By: #### P T, PTT #### [facility] [address] [place] [address] Dr. Mirza Sadler Mycoplas. Pneumoniae Not detected Normal NOT DETECTED [facility] Comment on above: Performed By: #### P T, PTT #### [facility] [address] [place] [address] Dr. Mirza Sadler Parainfluenza 1 Not detected Normal NOT DETECTED [facility] Comment on above: Performed By: #### P T, PTT #### [facility] [address] [place] [address] Dr. Mirza Sadler Parainfluenza 2 Not detected Normal NOT DETECTED [facility] Comment on above: Performed By: #### P T, PTT #### [facility] [address] [place] [address] Dr. Mirza Sadler Parainfluenza 3 Not detected Normal NOT DETECTED [facility] Comment on above: Performed By: #### P T, PTT #### [facility] [address] [place] [address] Dr. Mirza Sadler Parainfluenza 4 Not detected Normal NOT DETECTED [facility] Comment on above: Performed By: #### P T, PTT #### [facility] [address] [place] [address] Dr. Mirza Sadler Rhino/Enterovirus Not detected Normal NOT DETECTED [facility] Comment on above: Performed By: #### P T, PTT #### [facility] [address] [place] [address] Dr. Mirza Sadler RP2 Header 1 RESPIRATORY PANEL: VIRUSES Normal [facility] Comment on above: Performed By: #### P T, PTT #### [facility] [address] [place] [address] Dr. Mirza Sadler RP2 Header 2 RESPIRATORY PANEL: BACTERIA Normal [facility] Comment on above: Performed By: #### P T, PTT #### [facility] [address] [place] [address] Dr. Mirza Sadler RSV Not detected Normal NOT DETECTED [facility] Comment on above: Performed By: #### P T, PTT #### [facility] [address] [place], [place] [address] Dr. Mirza Sadler SARS-CoV-2 (COVID-19) RNA RAMO+probe Ql (Unsp spec) Not detected Normal NOT DETECTED [facility] Comment on above: Performed By: #### P T, PTT #### [facility] [address] [address] [address] Mirza Sadler TROPONIN, HIGH SENSITIVITYon 03-11-2022 HSTROP 75153.8 pg/mL Critically high 4.0-76.1 [facility] Comment on above: Result Comment: CUT- OFF POINTS HAVE BEEN ESTABLISHED BASED ON THE FOURTH UNIVERSAL DEFINITIONS OF MYOCARDIAL INFARCTION. THE UPPER REFERENCE LIMIT (URL) OF TROPONIN, DEFINED THE 99TH PERCENTILE OF cTnI DISTRIBUTION IN A REFERENCE POPULATION, HAS BEEN CONFIRMED THE DECISION THRESHOLD FOR ID DIAGNOSIS. Performed By: #### C MP, CMADM #### [facility] [address] [address] [address] Mirza Sadler HSTROP 41.0 pg/mL Normal 4.0-76.1 [facility] Comment on above: Result Comment: CUT- OFF POINTS HAVE BEEN ESTABLISHED BASED ON THE FOURTH UNIVERSAL DEFINITIONS OF MYOCARDIAL INFARCTION. THE UPPER REFERENCE LIMIT (URL) OF TROPONIN, DEFINED THE 99TH PERCENTILE OF cTnI DISTRIBUTION IN A REFERENCE POPULATION, HAS BEEN CONFIRMED THE DECISION THRESHOLD FOR ID DIAGNOSIS. Performed By: #### P T, PTT #### [facility] [address] [address] [address] Mirza Sadler XR CHEST 1 Von [...] Kayden ACEVES Date: 2022-03-11 05:42 Normal [facility] NM MUGAon 03-09-2022 NM MUGA EXAMINATION: [...] SHANNON LANDIS Date: 2022-03-09 12:26 Normal [facility] CT CHEST WO CONon 03-02-2022 CT [...] HIGINIO FLANAGAN Date: 2022-03-02 08:52 Normal [facility] Creatinine and Glomerular fi ltration rate.predicted panel (S/P/Bld)Ordered By: Gagan Shahid on 01-17-2022 Creatinine [Mass/Vol] 1.53 mg/dL 0.64-1.27 [facility] [place] Estimated glomerular filtrat ion rate (GFR) non- AmericanOrdered By: Gagan Shahid on 01-17-2022 GFR/1.73 sq M.predicted among non-blacks MDRD (S/P/Bld) [Vol rate/Area] 45 mL/Min [facility] Glucose Glucometer (BldC) [M ass/Vol]Ordered By: Gagan Shahid on 01-17-2022 Glucose [Mass/Vol] 178 mg/dL [facility] Comment on above: Random Glucose Refer ence Range is dependent on time and content of last meal. Glucose of more than 200 mg/dL in a nonstressed, ambulatory subject supports the diagnosis of Diabetes Mellitus. No Panel InformationOrdered By: Gagan Shahid on 01-17-2022 Estimated GFR () 55 mL/Min [facility] Comment on above: GFR estimated refere nce range: According to KDOQI guidelines, <60 ml/min/1.73m2 is sufficient to diagnose a patient with chronic kidney disease. Pharmacy Creatinine Clearance (Chem 42.00 [facility] Serum or plasma anion gap de terminationOrdered By: Gagan Shahid on 01-17-2022 Anion gap [Moles/Vol] 12.0 mmol/L 6.0-15.0 [facility] Serum or plasma calcium radha urement (mass/volume)Ordered By: Gagan Shahid on 01-17-2022 Calcium [Mass/Vol] 9.0 mg/dL 8.2-10.2 [facility] Serum or plasma chloride shanae surement (moles/volume)Ordered By: Gagan Shahid on 01-17-2022 Chloride [Moles/Vol] 107 mmol/L 95-114 [facility] Serum or plasma glucose radha urement (mass/volume)Ordered By: Gagan Shahid on 01-17-2022 Glucose [Mass/Vol] 142 mg/dL 70-100 [facility] Comment on above: ADA recommended refe rence rangeRandom Glucose Reference Range is dependent on time and content of last meal. Glucose of more than 200 mg/dL in a nonstressed, ambulatory subject supports the diagnosis of Diabetes Mellitus. Serum or plasma potassium me asurement (moles/volume)Ordered By: Gagan Shahid on 01-17-2022 Potassium [Moles/Vol] 3.5 mmol/L 3.5-5.1 [facility] [place] Serum or plasma sodium measu rement (moles/volume)Ordered By: Gagan Shahid on 01-17-2022 Sodium [Moles/Vol] 137 mmol/L 136-146 [facility] Serum or plasma total carbon dioxide measurement (moles/volume)Ordered By: Gagan Shahid on 01-17-2022 CO2 [Moles/Vol] 21.5 mmol/L 22.0-30.0 [facility] Serum or plasma urea nitroge n measurement (mass/volume)Ordered By: Gagan Shahid on 01-17-2022 Urea nitrogen [Mass/Vol] 24 mg/dL 9-23 [facility] Activated partial thrombopla stin time (aPTT) in platelet poor plasma by coagulation aOrdered By: Gagan Shahid on 01-16-2022 aPTT Coag (PPP) [Time] 42.1 s 25.1-36.5 [facility] Basophils Auto (Bld) [#/Vol] Ordered By: Gagan Shahid on 01-16-2022 Basophils (Bld) [#/Vol] 0.0 10*3/uL 0.0-0.2 [facility] Basophils/100 WBC Auto (Bld) Ordered By: Gagan Shahid on 01-16-2022 Basophils/100 WBC (Bld) 0.5 % . [facility] Creatine kinase [Enzymatic a ctivity/volume] in Serum or PlasmaOrdered By: Gagan Shahid on 01-16-2022 CK [Catalytic activity/Vol] 92 U/L 22-269 [facility] Eosinophils Auto (Bld) [#/Vo l]Ordered By: Gagan Shahid on 01-16-2022 Eosinophils (Bld) [#/Vol] 0.2 10*3/uL 0.0-0.45 [facility] Eosinophils/100 WBC Auto (Bl d)Ordered By: Gagan Shahid on 01-16-2022 Eosinophils/100 WBC (Bld) 2.4 % . [facility] Erythrocyte distribution wid th Auto (RBC) [Ratio]Ordered By: Gagan Shahid on 01-16-2022 Erythrocyte distribution width (RBC) [Ratio] 14.6 % 12.0-14.8 [facility] Hematocrit Auto (Bld) [Volum e fraction]Ordered By: Gagan Shahid on 01-16-2022 Hematocrit (Bld) [Volume fraction] 43.4 % 38.8-50.0 [facility] Hemoglobin [Mass/volume] in BloodOrdered By: Gagan Shahid on 01-16-2022 Hemoglobin (Bld) [Mass/Vol] 14.4 g/dL 13.0-17.0 [facility] - Chemistry and C hemistry - challengeOrdered By: Gagan Shahid on 01-16-2022 Magnesium [Mass/Vol] 1.9 mg/dL 1.6-2.6 [facility] - CoagulationOrde red By: Gagan Shahid on 01-16-2022 PT Coag (PPP) [Time] 15.7 s 9.0-12.9 [facility] - Hematology and Cell countsOrdered By: Gagan Shahid on 01-16-2022 Nucleated RBC/100 WBC (Bld) [Ratio] 0.1 % 0-0.5 [facility] Leukocytes [#/volume] in Blo od by Automated countOrdered By: Gagan Shahid on 01-16-2022 WBC (Bld) [#/Vol] 8.2 10*3/uL 4.5-11.0 [facility] Lymphocytes Auto (Bld) [#/Vo l]Ordered By: Gagan Shahid on 01-16-2022 Lymphocytes (Bld) [#/Vol] 1.6 10*3/uL 1.00-4.8 [facility] Lymphocytes/100 WBC Auto (Bl d)Ordered By: Gagan Shahid on 01-16-2022 Lymphocytes/100 WBC (Bld) 19.5 % . [facility] MCH Auto (RBC) [Entitic mass ]Ordered By: Gagan Shahid on 01-16-2022 MCH (RBC) [Entitic mass] 29.4 pg 27.5-35.2 [facility] MCHC Auto (RBC) [Mass/Vol]Or dered By: Gagan Shahid on 01-16-2022 MCHC (RBC) [Mass/Vol] 33.2 g/dL 32.5-35.6 [facility] [place] MCV Auto (RBC) [Entitic vol] Ordered By: Gagan Shahid on 01-16-2022 MCV (RBC) [Entitic vol] 88.5 fL 83.5-101 [facility] Monocytes Auto (Bld) [#/Vol] Ordered By: Gagan Shahid on 01-16-2022 Monocytes (Bld) [#/Vol] 0.8 10*3/uL 0.0-0.8 [facility] Monocytes/100 WBC Auto (Bld) Ordered By: Gagan Shahid on 01-16-2022 Monocytes/100 WBC (Bld) 9.1 % . [facility] Neutrophils Auto (Bld) [#/Vo l]Ordered By: Gagan Shahid on 01-16-2022 Neutrophils (Bld) [#/Vol] 5.6 10*3/uL 1.8-7.7 [facility] Neutrophils/100 WBC Auto (Bl d)Ordered By: Gagan Shahid on 01-16-2022 Neutrophils/100 WBC (Bld) 68.5 % . [facility] No Panel InformationOrdered By: Gagan Shahid on 01-16-2022 Bedside Glucose Comment Glu2: cleaned meter [facility] Platelet mean volume Auto (B ld) [Entitic vol]Ordered By: Gagan Shahid on 01-16-2022 Platelet mean volume (Bld) [Entitic vol] 8.4 fL 6.6-10.1 [facility] Platelet poor plasma interna tional normalized ratio (INR) by coagulation assay (relatOrdered By: Gagan Shahid on 01-16-2022 INR Coag (PPP) [Relative time] 1.4 {INR} [facility] Comment on above: INR Therapeutic Rang [...] 01-16-2022 Platelets (Bld) [#/Vol] 178 10*3/uL 150-450 [facility] RBC Auto (Bld) [#/Vol]Ordere d By: Gagan Shahid on 01-16-2022 RBC (Bld) [#/Vol] 4.90 10*6/uL 3.90-5.60 [facility] Serum or plasma creatine kin ase MB (CKMB)/total creatine kinase (CK) ratio by calculaOrdered By: Gagan Shahid on 01-16-2022 CK.MB Calc [Catalytic fraction] 3.2 % 0.00-2.50 [facility] Serum or plasma creatine kin ase MB measurement (mass/volume)Ordered By: Gagan Shahid on 01-16-2022 CK.MB [Mass/Vol] 3.0 ng/mL 0.6-6.3 [facility] Troponin I.cardiac [Mass/vol ume] in Serum or Plasma by High sensitivity methodOrdered By: Gagan Shahid on 01-16-2022 Troponin I.cardiac High sensitivity method [Mass/Vol] 525 pg/mL 0-20 [facility] Comment on above: Critical valueresult calledat 1844 on 01/16/22 BNPon 01-15-2022 Natriuretic peptide B (Bld) [Mass/Vol] 1012.0 pg/mL Critically high <=900.0 [facility] Comment on above: Performed By: #### B BUSINESS LIAISON MANAGER #### [facility] [address] [place] [address] Dr. Mirza Sadler CARDIAC PARUL ADMITon 022 CK [Catalytic activity/Vol] 93 U/L Normal 39-308 [facility] Comment on above: Performed By: #### C TEGAN MARIN #### [facility] [address] [place] [address] Dr. Mirza Sadler CK.MB [Mass/Vol] 1.67 ng/mL Normal <=3.60 [facility] Comment on above: Performed By: #### C TEGAN MARIN #### [facility] [address] [place] [address] Dr. Mirza Sadler HSTROP 17.1 pg/mL Normal 4.0-76.1 [facility] Comment on above: Result Comment: CUT- OFF POINTS HAVE BEEN ESTABLISHED BASED ON THE FOURTH UNIVERSAL DEFINITIONS OF MYOCARDIAL INFARCTION. THE UPPER REFERENCE LIMIT (URL) OF TROPONIN, DEFINED THE 99TH PERCENTILE OF cTnI DISTRIBUTION IN A REFERENCE POPULATION, HAS BEEN CONFIRMED THE DECISION THRESHOLD FOR ID DIAGNOSIS. Performed By: #### C TEGAN MARIN #### [facility] [address] [place] [address] Dr. Mirza Sadler RACHEL 63 ng/mL Normal 16-96 [facility] Comment on above: Performed By: #### C TEGAN MARIN #### [facility] [address] [place] [address] Dr. Mirza Sadler CBC AUTO DIFFon 01-15-2022 BASO # 0.1 103/ul Normal 0.0-0.1 [facility] Comment on above: Performed By: #### E RUR #### [facility] [address] [place] [address] Dr. Mirza Sadler Basophils/100 WBC (Bld) 0.9 % Normal 0.2-2.0 [facility] Comment on above: Performed By: #### E RUR #### [facility] [address] [place] [address] Dr. Mirza Sadler EO # 0.3 103/ul Normal 0.0-0.7 [facility] Comment on above: Performed By: #### E RUR #### [facility] [address] [place] [address] Dr. Mirza Sadler Eosinophils/100 WBC (Bld) 3.1 % Normal 0.9-7.0 [facility] Comment on above: Performed By: #### E RUR #### [facility] [address] [place] [address] Dr. Mirza Sadler Erythrocyte distribution width (RBC) [Ratio] 14.2 % Normal 11.0-15.0 [facility] Comment on above: Performed By: #### E RUR #### [facility] [address] [place] [address] Dr. Mirza Sadler Hematocrit (Bld) [Volume fraction] 44.4 % Normal 42.0-54.0 [facility] Comment on above: Performed By: #### E RUR #### [facility] [address] [place] [address] Dr. Mirza Sadler Hemoglobin (Bld) [Mass/Vol] 14.4 g/dL Normal 14.0-18.0 [facility] Comment on above: Performed By: #### E RUR #### [facility] [address] [place] [address] Dr. Mirza Sadler IG # 0.03 10e3/ul Normal 0.00-0.03 [facility] Comment on above: Performed By: #### E RUR #### [facility] [address] [place] [address] Dr. Mirza Sadler IG % 0.3 % Normal 0.0-0.5 [facility] Comment on above: Performed By: #### E RUR #### [facility] [address] [place] [address] Dr. Mirza Sadler LYMPH # 1.6 103/ul Normal 1.2-3.8 [facility] Comment on above: Performed By: #### E RUR #### [facility] [address] [place] [address] Dr. Mirza Sadler Lymphocytes/100 WBC (Bld) 16.8 % Critically low 20.5-60.0 [facility] Comment on above: Performed By: #### E RUR #### [facility] [address] [address] [address] Mirza Sadler MANUAL DIFF REQ NO Normal [facility] Comment on above: Performed By: #### E RUR #### [facility] [address] [place] [address] Dr. Mirza Sadler MCH (RBC) [Entitic mass] 29.4 pg Normal 25.9-34.0 [facility] Comment on above: Performed By: #### E RUR #### [facility] [address] [place] [address] Dr. Mirza Sadler MCHC (RBC) [Mass/Vol] 32.4 g/dL Normal 29.9-35.2 [facility] Comment on above: Performed By: #### E RUR #### [facility] [address] [place] [address] Dr. Mirza Sadler MCV (RBC) [Entitic vol] 90.6 fL Normal 80.0-94.0 [facility] Comment on above: Performed By: #### E RUR #### [facility] [address] [place] [address] Dr. Mirza Sadler MONO # 0.5 103/ul Normal 0.3-0.8 [facility] Comment on above: Performed By: #### E RUR #### [facility] [address] [place] [address] Dr. Mirza Sadler Monocytes/100 WBC (Bld) 5.9 % Normal 1.7-12.0 [facility] Comment on above: Performed By: #### E RUR #### [facility] [address] [place] [address] Dr. Mirza Sadler NEUT # 6.7 103/ul Critically high 1.4-6.5 [facility] Comment on above: Performed By: #### E RUR #### [facility] [address] [place] [address] Dr. Mirza Sadler Neutrophils/100 WBC (Bld) 73.0 % Normal 43.0-75.0 [facility] Comment on above: Performed By: #### E RUR #### [facility] [address] [place], [place] [id number] Dr. Mirza Sadler Platelet mean volume (Bld) [Entitic vol] 10.0 fL Normal 9.5-13.5 [facility] Comment on above: Performed By: #### E RUR #### [facility] [address] [place] [address] Dr. Mirza Sadler PLT 190 103/ul Normal 150-450 [facility] Comment on above: Performed By: #### E RUR #### [facility] [address] [address] [address] Mirza Sadler RBC 4.90 106/ul Normal 4.70-6.10 [facility] Comment on above: Performed By: #### E RUR #### [facility] [address] [place] [address] Dr. Mirza Sadler WBC 9.2 103/ul Normal 4.0-11.0 [facility] Comment on above: Performed By: #### E RUR #### [facility] [address] [place] [address] CHEST WO CONon [...] by: HIGINIO FLANAGAN Date: 2022-01-15 08:19 Normal [facility] CULTURE BLOODon 01-15-2022 Microscopic examination of blood, culture Culture Observations: NO GROWTH AT 5 DAYS. Normal [facility] Comment on above: Performed By: #### H STROPN #### [facility] [address] [address] [address] Mirza Sadler Microscopic examination of blood, culture Culture Observations: NO GROWTH AT 5 DAYS. Normal [facility] Comment on above: Performed By: #### B [id number] #### [facility] [address] [address] [address] Mizra Sadler Covid-19 PCR ([facility])on 12-30 SARS-CoV-2 (COVID-19) RNA RAMO+probe Ql (Unsp spec) Not detected Normal NOT DETECTED [facility] Comment on above: Result Comment: When [...] for this test is supported by the [employer] and Human Service's declaration that [...] longer be used). Performed By: #### B BUSINESS LIAISON MANAGER #### [facility] [address] [address] [address] Mirza Sadler ER URINE PROFILEon 2 Bilirubin Ql (U) Negative Normal NEGATIVE [facility] Comment on above: Performed By: #### C MP, CMADM #### [facility] [address] [address] [address] Mirza Sadler Clarity (U) CLEAR Normal CLEAR [facility] Comment on above: Performed By: #### C MP, CMADM #### [facility] [address] [place] [address] Dr. Mirza Sadler Color (U) LT. YELLOW Normal YELLOW [facility] Comment on above: Performed By: #### C MP, CMADM #### [facility] [address] [place] [address] Dr. Mirza Sadler ERUAHD A micrscopic examina tion will be performed if indicated. Normal [facility] Comment on above: Performed By: #### C MP, CMADM #### [facility] [address] [place] [address] Dr. Mirza Sadler Glucose Ql (U) >1000 Abnormal NEGATIVE [facility] Comment on above: Performed By: #### C MP, CMADM #### [facility] [address] [place] [address] Dr. Mirza Sadler Hemoglobin Ql (U) Negative Normal NEGATIVE The [facility] Comment on above: Performed By: #### C MP, CMADM #### [facility] [address] [place] [address] Dr. Mirza Sadler Ketones Ql (U) TRACE Abnormal NEGATIVE [facility] Comment on above: Performed By: #### C MP, CMADM #### [facility] [address] [place] [address] Dr. Mirza Sadler LEUKOCYTES Negative Normal NEGATIVE [facility] Comment on above: Performed By: #### C MP, CMADM #### [facility] [address] [place] [address] Dr. Mirza Sadler Nitrite Ql (U) Negative Normal NEGATIVE [facility] Comment on above: Performed By: #### C TANIA, CMADM #### [facility] [address] [place] [address] Dr. Mirza Sadler pH (U) 5.5 [pH] Normal 5-9 [facility] Comment on above: Performed By: #### C TANIA, CMADM #### [facility] [address] [place] [address] Dr. Mirza Sadler SPEC GRAVITY 1.020 Normal 1.005-<=1. 025 [facility] Comment on above: Performed By: #### C TANIA, CMADM #### [facility] [address] [place] [address] Dr. Mirza Sadler UA PROTEIN TRACE Normal NEGATIVE/ TRACE [facility] Comment on above: Performed By: #### C TANIA, DOMDM #### [facility] [address] [place] [address] Dr. Mirza Sadler UR MICRO IND NOT INDICATED Normal [facility] Comment on above: Performed By: #### C TANIA, DOMDM #### [facility] [address] [place] [address] Dr. Mirza Sadler Urobilinogen Qn (U) 0.2 {Luisito'U}/dL Normal 0.2 - 1. 0 [facility] Comment on above: Performed By: #### C TANIA, DOMDM #### [facility] [address] [place] [address] Dr. Mirza Sadler LACTATE/LACTIC ACIDon 2021 Lactate [Moles/Vol] 0.8 mmol/L Normal 0.4-1.9 [facility] Comment on above: Performed By: #### P T, PTT #### [facility] [address] [place] [address] Dr. Mirza Sadler PROF 14(COMP METB)on Albumin [Mass/Vol] 4.4 g/dL Normal 3.4-5.0 [facility] Comment on above: Performed By: #### C DOM MARINDM #### [facility] [address] [address] [address] Mirza Sadler Albumin/Globulin [Mass ratio] 1.3 {ratio} Normal [facility] Comment on above: Performed By: #### C MP, CMADM #### [facility] [address] [address] [address] Mirza Sadler ALP [Catalytic activity/Vol] 155 U/L Critically high 46-116 [facility] Comment on above: Performed By: #### C MP, CMADM #### [facility] [address] [address] [address] iMrza Sadler ALT [Catalytic activity/Vol] 27 U/L Normal 16-63 [facility] Comment on above: Performed By: #### C TANIA, CMADM #### [facility] [address] [address] [address] Mirza Sadler Anion gap [Moles/Vol] 14.9 mmol/L Normal [facility] Comment on above: Performed By: #### C TANIA, CMADM #### [facility] [facility] [address] [address] [address] Mirza Sadler AST [Catalytic activity/Vol] 22 U/L Normal 15-37 [facility] Comment on above: Performed By: #### C TANIA, CMADM #### [facility] [address] [address] [address] Mirza Sadler Bilirubin [Mass/Vol] 0.8 mg/dL Normal 0.2-1.0 [facility] Comment on above: Performed By: #### C TANIA, CMADM #### [facility] [address] [address] [address] Mirza Sadler Calcium [Mass/Vol] 8.8 mg/dL Normal 8.5-10.1 [facility] Comment on above: Performed By: #### C TANIA, CMADM #### [facility] [address] [address] [address] Mirza Sadler Chloride [Moles/Vol] 106 mmol/L Normal 98-107 [facility] Comment on above: Performed By: #### C TANIA, CMADM #### [facility] [address] [address] [address] Mirza Sadler CO2 [Moles/Vol] 23.9 mmol/L Normal 21.0-32.0 [facility] Comment on above: Performed By: #### C MP, CMADM #### [facility] [address] [address] [address] Mirza Sadler Creatinine [Mass/Vol] 1.51 mg/dL Critically high 0.70-1.30 [facility] Comment on above: Performed By: #### C MP, CMADM #### [facility] [address] [address] [address] Mirza Sadler EGFR-AF MONEGASQUE 56 mL/min/1.73m2 Critically low >=60 [facility] Comment on above: Performed By: #### C MP, CMADM #### [facility] [address] [address] [address] Mirza Sadler EGFR-NON AF MONEGASQUE 46 mL/min/1.73m2 Critically low >=60 [facility] Comment on above: Performed By: #### C MP, CMADM #### [facility] [address] [address] [address] Mirza Sadler Globulin (S) [Mass/Vol] 3.4 g/dL Normal [facility] Comment on above: Performed By: #### C MP, CMADM #### [facility] [address] [address] [address] Mirza Sadler Glucose [Mass/Vol] 189 mg/dL Critically high 74-106 [facility] Comment on above: Performed By: #### C MP, CMADM #### [facility] [address] [address] [address] Mirza Sadler Potassium [Moles/Vol] 3.8 mmol/L Normal 3.5-5.1 [facility] Comment on above: Performed By: #### C MP, CMADM #### [facility] [address] [address] [address] Mirza Sadler Protein [Mass/Vol] 7.8 g/dL Normal 6.4-8.2 [facility] Comment on above: Performed By: #### C TANIA, CMADM #### [facility] [address] [place] [address] Dr. Mirza Sadler Sodium [Moles/Vol] 141 mmol/L Normal 136-145 [facility] Comment on above: Performed By: #### C TANIA, CMADM #### [facility] [address] [place] [address] Dr. Mirza Sadler Urea nitrogen [Mass/Vol] 22.0 mg/dL Critically high 7.0-18.0 [facility] Comment on above: Performed By: #### C TANIA, CMADM #### [facility] [address] [place] [address] Dr. Mirza Sadler Urea nitrogen/Creatinine [Mass ratio] 14.6 mg/mg Normal [facility] Comment on above: Performed By: #### C TANIA, DOMDM #### [facility] [address] [place] [address] Dr. Mirza Sadler PROTIMEon 01-15-2022 INR Coag (PPP) [Relative time] 1.10 {INR} Normal [facility] Comment on above: Performed By: #### E RUR #### [facility] [address] [place] [address] Dr. Mirza Sadler INR GUIDELINES SEE BELOW Normal [facility] Comment on above: Result Comment: RIVKA RED INR: 2.0 - 3.0 CONDITIONS NOT LISTED BELOW 2.5 - 3.5 FOR PROSTHETIC HEART VALVE REPLACEMENT 2.5 - 3.5 RECURRENT THROMBOSIS Performed By: #### E RUR #### [facility] [address] [place] [address] Dr. Mirza Sadler PT Coag (PPP) [Time] 11.8 s Critically high 9.0-11.6 [facility] Comment on above: Performed By: #### E RUR #### [facility] [address] [place] [address] Dr. Mirza Sadler PTTon 01-15-2022 aPTT Coag (Bld) [Time] 29.0 s Normal 22.3-36.2 [facility] Comment on above: Performed By: #### E RUR #### [facility] [address], [place] [address] Dr. Mirza Sadler TROPONIN, HIGH SENSITIVITYon 01-15-2022 HSTROP 1786.2 pg/mL Critically high 4.0-76.1 [facility] Comment on above: Result Comment: CUT- OFF POINTS HAVE BEEN ESTABLISHED BASED ON THE FOURTH UNIVERSAL DEFINITIONS OF MYOCARDIAL INFARCTION. THE UPPER REFERENCE LIMIT (URL) OF TROPONIN, DEFINED THE 99TH PERCENTILE OF cTnI DISTRIBUTION IN A REFERENCE POPULATION, HAS BEEN CONFIRMED THE DECISION THRESHOLD FOR ID DIAGNOSIS. Performed By: #### H STROPN #### [facility] [address], [place] [address] Dr. Mirza Sadler HSTROP 669.3 pg/mL Critically high 4.0-76.1 [facility] Comment on above: Result Comment: CUT- OFF POINTS HAVE BEEN ESTABLISHED BASED ON THE FOURTH UNIVERSAL DEFINITIONS OF MYOCARDIAL INFARCTION. THE UPPER REFERENCE LIMIT (URL) OF TROPONIN, DEFINED THE 99TH PERCENTILE OF cTnI DISTRIBUTION IN A REFERENCE POPULATION, HAS BEEN CONFIRMED THE DECISION THRESHOLD FOR ID DIAGNOSIS. Performed By: #### H STROPN #### [facility] [address], [place] [address] Dr. Mirza Sadler XR CHEST 1 Von [...] by: WAYNE CASEY Date: 2022-01-15 06:42 Normal [facility] A1C HEMOGLOBINon 12-18-2021 HbA1c (Bld) [Mass fraction] 6.2 % [facility] Other Glucose - FINGER STICKon Glucose [Mass/Vol] 120 mg/dL [facility] Other HbA1c (Bld) [Mass fraction]o n 12-18-2021 A1C HEMOGLOBIN [facility] Other XR CHEST 2 Von 12-08-2021 XR [...] HIGINIO FLANAGAN Date: 2021-12-08 16:07 Normal [facility] PTH INTACTon 12-01-2021 PTH, Intact 15 pg/mL Normal 15-65 [facility] Comment on above: Performed By: #### C , [facility] #### [facility] [address] [place] [address] Dr. Mirza Sadler VIT D 25-OH LABC[facility]Pon 2021 Vitamin D, 25-Hydroxy 41.2 ng/mL Normal 30.0-100.0 [facility] Comment on above: Result Comment: [place] min D deficiency has been defined by the [place] of [employer] and an Endocrine Society practice guideline as a level of serum 25-OH vitamin D less than 20 ng/mL (1,2). The Endocrine Society went on to further define vitamin D insufficiency as a level between 21 and 29 ng/mL (2). 1. IOM ([place] of [employer]). 2010. Dietary reference intakes for calcium and D. [place]: The National Academies Press. 2. Noemy MENDIETA, Sonam PAUL, Jake HERMOSILLO, et al. Evaluation, treatment, and prevention of vitamin D deficiency: an Endocrine Society clinical practice guideline. JCEM. 2010; 96(7):1911-30. Performed By: #### P T, PTT #### [facility] [address] [place] [address] Dr. Mirza Sadler HEMOGRAM AND PLATELon 2021 Hematocrit (Bld) [Volume fraction] 39.9 % Critically low 42.0-54.0 [facility] Comment on above: Performed By: #### P T, PTT #### [facility] [address] [place] [address] Dr. Mirza Sadler Hemoglobin (Bld) [Mass/Vol] 13.1 g/dL Critically low 14.0-18.0 [facility] Comment on above: Performed By: #### P T, PTT #### [facility] [address] [place] [address] Dr. Mirza Sadler MCH (RBC) [Entitic mass] 29.5 pg Normal 25.9-34.0 [facility] Comment on above: Performed By: #### P T, PTT #### [facility] [address] [place] [address] Dr. Mirza Sadler MCHC (RBC) [Mass/Vol] 32.8 g/dL Normal 29.9-35.2 [facility] Comment on above: Performed By: #### P T, PTT #### [facility] [address] [place] [address] Dr. Mirza Sadler MCV (RBC) [Entitic vol] 89.9 fL Normal 80.0-94.0 [facility] Comment on above: Performed By: #### P T, PTT #### [facility] [address] [place] [address] Dr. Mirza Sadler PLT 182 103/ul Normal 150-450 [facility] Comment on above: Performed By: #### P T, PTT #### [facility] [address] [place] [address] Dr. Mirza Sadler RBC 4.44 106/ul Critically low 4.70-6.10 [facility] Comment on above: Performed By: #### P T, PTT #### [facility] [address] [place] [address] Dr. Mirza Sadler WBC 6.9 103/ul Normal 4.0-11.0 [facility] Comment on above: Performed By: #### P T, PTT #### [facility] [address] [place] [address] Dr. Mirza Sadler MAGNESIUMon 11-30-2021 Magnesium [Mass/Vol] 1.8 mg/dL Normal 1.8-2.4 [facility] Comment on above: Performed By: #### P T, PTT #### [facility] [address] [place] [address] Dr. Mirza Sadler RENAL FUNCTION PANELon 11-30 Albumin [Mass/Vol] 3.9 g/dL Normal 3.4-5.0 [facility] Comment on above: Performed By: #### P T, PTT #### [facility] [address] [place] [address] Dr. Mirza Sadler Calcium [Mass/Vol] 9.0 mg/dL Normal 8.5-10.1 [facility] Comment on above: Performed By: #### P T, PTT #### [facility] [address] [place] [address] Dr. Mirza Sadler Chloride [Moles/Vol] 107 mmol/L Normal 98-107 [facility] Comment on above: Performed By: #### P T, PTT #### [facility] [address] [place] [address] Dr. Mirza Sadler CO2 [Moles/Vol] 26.2 mmol/L Normal 21.0-32.0 [facility] Comment on above: Performed By: #### P T, PTT #### [facility] [address] [place] [address] Dr. Mirza Sadler Creatinine [Mass/Vol] 1.55 mg/dL Critically high 0.70-1.30 [facility] Comment on above: Performed By: #### P T, PTT #### [facility] [address] [place] [address] Dr. Mirza Sadler EGFR-AF MONEGASQUE 54 mL/min/1.73m2 Critically low >=60 [facility] Comment on above: Performed By: #### P T, PTT #### [facility] [address] [address] [address] Mirza Sadler EGFR-NON AF MONEGASQUE 45 mL/min/1.73m2 Critically low >=60 [facility] Comment on above: Performed By: #### P T, PTT #### [facility] [address] [address] [address] Mirza Sadler Glucose [Mass/Vol] 166 mg/dL Critically high 74-106 [facility] Comment on above: Performed By: #### P T, PTT #### [facility] [address] [address] [address] Mirza Sadler Phosphate [Mass/Vol] 3.7 mg/dL Normal 2.6-4.7 [facility] Comment on above: Performed By: #### P T, PTT #### [facility] [address] [address] [address] Mirza Sadler Potassium [Moles/Vol] 4.2 mmol/L Normal 3.5-5.1 [facility] Comment on above: Performed By: #### P T, PTT #### [facility] [address] [address] [address] Mirza Sadler Sodium [Moles/Vol] 142 mmol/L Normal 136-145 [facility] Comment on above: Performed By: #### P T, PTT #### [facility] [address] [address] [address] Mirza Sadler Urea nitrogen [Mass/Vol] 16.0 mg/dL Normal 7.0-18.0 [facility] Comment on above: Performed By: #### P T, PTT #### [facility] [address] [address] [address] Mirza Sadler UA RANDOM W/MICROSCOPICon BACTERIA NONE SEEN Normal NONE SEEN [facility] Comment on above: Performed By: #### B LDCX2 #### [facility] [address] [address] [address] Mirza Sadler Bilirubin Ql (U) Negative Normal NEGATIVE [facility] Comment on above: Performed By: #### B LDCX2 #### [facility] [address] [place] [address] Dr. Mirza Sadler CAST NONE SEEN Normal NONE SEEN [facility] Comment on above: Performed By: #### B LDCX2 #### [facility] [address] [place] [address] Dr. Mirza Sadler Clarity (U) CLEAR Normal CLEAR [facility] Comment on above: Performed By: #### B LDCX2 #### [facility] [address] [place] [address] Dr. Mirza Sadler Color (U) LT. YELLOW Normal YELLOW [facility] Comment on above: Performed By: #### B LDCX2 #### [facility] [address] [place] [address] Dr. Mirza Sadler Crystals LM Nom (Urine sed) NONE SEEN Normal NONE SEEN [facility] Comment on above: Performed By: #### B LDCX2 #### [facility] [address] [place] [address] Dr. Mirza Sadler Epithelial cells LM Ql (Urine sed) RARE Normal NONE SEEN /RARE [facility] Comment on above: Performed By: #### B LDCX2 #### [facility] [address] [place] [address] Dr. Mirza Sadler Glucose Ql (U) >1000 Abnormal NEGATIVE [facility] Comment on above: Performed By: #### B LDCX2 #### [facility] [address] [place] [address] Dr. Mirza Sadler Hemoglobin Ql (U) Negative Normal NEGATIVE The [facility] Comment on above: Performed By: #### B LDCX2 #### [facility] [address] [place] [address] Dr. Mirza Sadler Ketones Ql (U) Negative Normal NEGATIVE [facility] Comment on above: Performed By: #### B LDCX2 #### [facility] [address] [place] [address] Dr. Mirza Sadler LEUKOCYTES Negative Normal NEGATIVE [facility] Comment on above: Performed By: #### B LDCX2 #### [facility] [address] [place] [address] Dr. Mirza Sadler MUCOUS NONE SEEN Normal NONE SEEN [facility] Comment on above: Performed By: #### B LDCX2 #### [facility] [address] [place] [address] Dr. Mirza Sadler Nitrite Ql (U) Negative Normal NEGATIVE [facility] Comment on above: Performed By: #### B LDCX2 #### [facility] [address] [place] [address] Dr. Mirza Sadler pH (U) 5.5 [pH] Normal 5-9 [facility] Comment on above: Performed By: #### B LDCX2 #### [facility] [address] [place] [address] Dr. Mirza Sadler RBC NONE SEEN Abnormal 0-2 [facility] Comment on above: Performed By: #### B LDCX2 #### [facility] [address] [place] [address] Dr. Mirza Sadler SPEC GRAVITY 1.015 Normal 1.005-<=1. 025 [facility] Comment on above: Performed By: #### B LDCX2 #### [facility] [address] [place] [address] Dr. Mirza Sadler UA PROTEIN Negative Normal NEGATIVE/ TRACE [facility] Comment on above: Performed By: #### B LDCX2 #### [facility] [address] [place] [address] Dr. Mriza Sadler Urobilinogen Qn (U) 0.2 {Luisito'U}/dL Normal 0.2 - 1. 0 [facility] Comment on above: Performed By: #### B LDCX2 #### [facility] [address] [place] [address] Dr. Mirza Sadler WBC NONE SEEN Normal NONE SEEN [facility] Comment on above: Performed By: #### B LDCX2 #### [facility] [address] [place] [address] Dr. Mirza Sadlre URINE T PROTEIN CREAT RATIOo n 11-30-2021 Protein (U) [Mass/Vol] 22.4 mg/dL Critically high <=12.0 [facility] Comment on above: Performed By: #### U RTPCR #### [facility] [address] [address] [address] Mirza Sadler UR PROT CREAT RAT 0.31 Normal [facility] Comment on above: Performed By: #### U RTPCR #### [facility] [address] [address] [address] Mirza Sadler URINE CREAT 73.05 mg/dL Normal 20.00-300. 00 [facility] Comment on above: Performed By: #### U RTPCR #### [facility] [address] [address] [address] Mirza Sadler NM HEPATOBILIARY SCAN W [...] HIGINIO FLANAGAN Date: 2021-11-24 11:55 Normal [facility] BNPon 10-27-2021 Natriuretic peptide B (Bld) [Mass/Vol] 574.0 pg/mL Normal <=900.0 [facility] Comment on above: Performed By: #### P T, PTT #### [facility] [address] [address] [address] Mirza Sadler CARDIAC PARUL ADMITon 022 CK [Catalytic activity/Vol] 70 U/L Normal 39-308 [facility] Comment on above: Performed By: #### P T, PTT #### [facility] [address] [address] [address] Mirza Sadler CK.MB [Mass/Vol] 1.10 ng/mL Normal <=3.60 [facility] Comment on above: Performed By: #### P T, PTT #### [facility] [address] [place] [address] Dr. Mirza Sadler HSTROP 22.3 pg/mL Normal 4.0-76.1 [facility] Comment on above: Result Comment: CUT- OFF POINTS HAVE BEEN ESTABLISHED BASED ON THE FOURTH UNIVERSAL DEFINITIONS OF MYOCARDIAL INFARCTION. THE UPPER REFERENCE LIMIT (URL) OF TROPONIN, DEFINED THE 99TH PERCENTILE OF cTnI DISTRIBUTION IN A REFERENCE POPULATION, HAS BEEN CONFIRMED THE DECISION THRESHOLD FOR ID DIAGNOSIS. Performed By: #### P T, PTT #### [facility] [address] [place] [address] Dr. Mirza Sadler RACHEL 81 ng/mL Normal 16-96 [facility] Comment on above: Performed By: #### P T, PTT #### [facility] [address] [place] [address] Dr. Mirza Sadler CBC AUTO DIFFon 10-27-2021 BASO # 0.1 103/ul Normal 0.0-0.1 [facility] Comment on above: Performed By: #### E RUR #### [facility] [address] [place] [address] Dr. Mirza Sadler Basophils/100 WBC (Bld) 0.4 % Normal 0.2-2.0 [facility] Comment on above: Performed By: #### E RUR #### [facility] [address] [place] [address] Dr. Mirza Sadler EO # 0.1 103/ul Normal 0.0-0.7 [facility] Comment on above: Performed By: #### E RUR #### [facility] [address] [place] [address] Dr. Mirza Sadler Eosinophils/100 WBC (Bld) 0.4 % Critically low 0.9-7.0 [facility] Comment on above: Performed By: #### E RUR #### [facility] [address] [address] [address] Mirza Sadler Erythrocyte distribution width (RBC) [Ratio] 14.1 % Normal 11.0-15.0 [facility] Comment on above: Performed By: #### E RUR #### [facility] [address] [place] [address] Dr. Mirza Sadler Hematocrit (Bld) [Volume fraction] 41.0 % Critically low 42.0-54.0 [facility] Comment on above: Performed By: #### E RUR #### [facility] [address] [place] [address] Dr. Mirza Sadler Hemoglobin (Bld) [Mass/Vol] 14.1 g/dL Normal 14.0-18.0 [facility] Comment on above: Performed By: #### E RUR #### [facility] [address] [place] [address] Dr. Mirza Sadler IG # 0.05 10e3/ul Critically high 0.00-0.03 [facility] Comment on above: Performed By: #### E RUR #### [facility] [address] [place] [address] Dr. Mirza Sadler IG % 0.4 % Normal 0.0-0.5 [facility] Comment on above: Performed By: #### E RUR #### [facility] [address] [place] [address] Dr. Mirza Sadler LYMPH # 0.9 103/ul Critically low 1.2-3.8 [facility] Comment on above: Performed By: #### E RUR #### [facility] [address] [place] [address] Dr. Mirza Sadler Lymphocytes/100 WBC (Bld) 6.6 % Critically low 20.5-60.0 [facility] Comment on above: Performed By: #### E RUR #### [facility] [address] [place] [address] Dr. Mirza Sadler MANUAL DIFF REQ NO Normal [facility] Comment on above: Performed By: #### E RUR #### [facility] [address] [address] [address] Mirza Sadler MCH (RBC) [Entitic mass] 29.7 pg Normal 25.9-34.0 [facility] Comment on above: Performed By: #### E RUR #### [facility] [address] [place] [address] Dr. Mirza Sadler MCHC (RBC) [Mass/Vol] 34.4 g/dL Normal 29.9-35.2 [facility] Comment on above: Performed By: #### E RUR #### [facility] [address] [place] [address] Dr. Mirza Sadler MCV (RBC) [Entitic vol] 86.3 fL Normal 80.0-94.0 [facility] Comment on above: Performed By: #### E RUR #### [facility] [address] [place] [address] Dr. Mirza Sadler MONO # 0.4 103/ul Normal 0.3-0.8 [facility] Comment on above: Performed By: #### E RUR #### [facility] [address] [place] [address] Dr. Mirza Sadler Monocytes/100 WBC (Bld) 2.6 % Normal 1.7-12.0 [facility] Comment on above: Performed By: #### E RUR #### [facility] [address] [place] [address] Dr. Mirza Sadler NEUT # 12.2 103/ul Critically high 1.4-6.5 [facility] Comment on above: Performed By: #### E RUR #### [facility] [address] [place] [address] Dr. Mirza Sadler Neutrophils/100 WBC (Bld) 89.6 % Critically high 43.0-75.0 [facility] Comment on above: Performed By: #### E RUR #### [facility] [address] [place] [address] Dr. Mirza Sadler Platelet mean volume (Bld) [Entitic vol] 9.7 fL Normal 9.5-13.5 [facility] Comment on above: Performed By: #### E RUR #### [facility] [address] [place] [address] Dr. Mirza Sadler PLT 183 103/ul Normal 150-450 [facility] Comment on above: Performed By: #### E RUR #### [facility] [address] [place] [address] Dr. Mirza Sadler RBC 4.75 106/ul Normal 4.70-6.10 [facility] Comment on above: Performed By: #### E RUR #### [facility] [address] [place] [address] Dr. Mirza Sadler WBC 13.7 103/ul Critically high 4.0-11.0 [facility] Comment on above: Performed By: #### E RUR #### [facility] [address] [place] [address] Dr. Mirza Sadler CULTURE BLOODon 10-27-2021 Microscopic examination of blood, culture Culture Observations: NO GROWTH AT 5 DAYS. Normal [facility] Comment on above: Performed By: #### B LDCX2 #### [facility] [address] [place] [address] Dr. Mirza Sadler Performed By: #### H STROPN #### [facility] [address] [place] [address] Dr. Mirza Sadler [facility] 09-30 SARS-CoV-2 (COVID-19) RNA RAMO+probe Ql (Unsp spec) Not detected Normal NOT DETECTED [facility] Comment on above: Result Comment: When [...] for this test is supported by the [place] of Health and Human Service's declaration that [...] Performed By: #### P T, PTT #### [facility] [address] [place] [address] Dr. Mirza Sadler ER URINE PROFILEon 2 Bilirubin Ql (U) Negative Normal NEGATIVE [facility] Comment on above: Performed By: #### H STROPN #### [facility] [address] [place] [address] Dr. Mirza Sadler Clarity (U) CLEAR Normal CLEAR [facility] Comment on above: Performed By: #### H STROPN #### [facility] [address] [place] [address] Dr. Mirza Sadler Color (U) YELLOW Normal YELLOW [facility] Comment on above: Performed By: #### H STROPN #### [facility] [address] [place] [address] Dr. Mirza Sadler ERUAHD A micrscopic examina tion will be performed if indicated. Normal [facility] Comment on above: Performed By: #### H STROPN #### [facility] [address] [place] [address] Dr. Mirza Sadler Glucose Ql (U) >1000 Abnormal NEGATIVE [facility] Comment on above: Performed By: #### H STROPN #### [facility] [address] [place] [address] Dr. Mirza Sadler Hemoglobin Ql (U) Negative Normal NEGATIVE The [facility] Comment on above: Performed By: #### H STROPN #### [facility] [address] [place] [address] Dr. Mirza Sadler Ketones Ql (U) TRACE Abnormal NEGATIVE [facility] Comment on above: Performed By: #### H STROPN #### [facility] [address] [place] [address] Dr. Mirza Sadler LEUKOCYTES Negative Normal NEGATIVE [facility] Comment on above: Performed By: #### H STROPN #### [facility] [address] [place] [address] Dr. Mirza Sadler Nitrite Ql (U) Negative Normal NEGATIVE [facility] Comment on above: Performed By: #### H STROPN #### [facility] [address] [place] [address] Dr. Mirza Sadler pH (U) 5.5 [pH] Normal 5-9 [facility] Comment on above: Performed By: #### H STROPN #### [facility] [address] [place] [address] Dr. Mirza Sadler SPEC GRAVITY 1.010 Normal 1.005-<=1. 025 [facility] Comment on above: Performed By: #### H STROPN #### [facility] [address] [place] [address] Dr. Mirza Sadler UA PROTEIN Negative Normal NEGATIVE/ TRACE [facility] Comment on above: Performed By: #### H STROPN #### [facility] [address] [place] [address] Dr. Mirza Sadler UR MICRO IND NOT INDICATED Normal [facility] Comment on above: Performed By: #### H STROPN #### [facility] [address] [place] [address] Dr. Mirza Sadler Urobilinogen Qn (U) 0.2 {Luisito'U}/dL Normal 0.2 - 1. 0 [facility] Comment on above: Performed By: #### H STROPN #### [facility] [address] [place] [address] Dr. Mirza Sadler INFLUENZA A AND B AGon 10-27 INFLUANEGH SEE BELOW Normal [facility] Comment on above: Result Comment: Nega tive for Flu A protein angiten. Infection due to Flu A cannot be ruled out. Flu A angiten in the sample may be below the detection limit of the test. Performed By: #### B BUSINESS LIAISON MANAGER #### [facility] [address] [place] [address] Dr. Mirza Sadler INFLUBNEGH SEE BELOW Normal [facility] Comment on above: Result Comment: Nega tive for Flu B protein antigen. Infection due to Flu B cannot be ruled out. Flu B antigen in the sample may be below the detection limit of the test. Performed By: #### B BUSINESS LIAISON MANAGER #### [facility] [address] [place] [address] Dr. Mirza Sadler INFLUENZA A AG Negative Normal NEGATIVE SEE COMMENT [facility] Comment on above: Performed By: #### B BUSINESS LIAISON MANAGER #### [facility] [address] [place] [address] Dr. Mirza Sadler INFLUENZA B AG Negative Normal NEGATIVE SEE COMMENT [facility] Comment on above: Performed By: #### B BUSINESS LIAISON MANAGER #### [facility] [address] [place] [address] Dr. Mirza Sadler INTERNAL CONTROLS Within Normal Limits Normal Wi thin Normal Limits [facility] Comment on above: Performed By: #### B BUSINESS LIAISON MANAGER #### [facility] [address] [place] [address] Dr. Mirza Sadler LACTATE/LACTIC ACIDon 2021 Lactate [Moles/Vol] 1.8 mmol/L Normal 0.4-1.9 [facility] Comment on above: Performed By: #### C DOM MARINDM #### [facility] [address] [place] [address] Dr. Mirza Sadler LIPASEon 10-27-2021 Lipase [Catalytic activity/Vol] 87.0 U/L Normal 73.0-393.0 [facility] Comment on above: Performed By: #### P T, PTT #### [facility] [address] [place] [address] Dr. Mirza Sadler PH VENOUS BLOODon 10-27-2021 PCO2 VENOUS 37.6 mmHg Critically low 40.0-52.0 [facility] Comment on above: Performed By: #### P T, PTT #### [facility] [address] [place] [address] Dr. Mirza Sadler pH VENOUS 7.422 Normal 7.330-7.43 0 [facility] Comment on above: Performed By: #### P T, PTT #### [facility] [address] [address] [address] Mirza Sadler PROF 14(COMP METB)on 022 Albumin [Mass/Vol] 4.2 g/dL Normal 3.4-5.0 [facility] Comment on above: Performed By: #### P T, PTT #### [facility] [address] [place] [address] Dr. Mirza Sadler Albumin/Globulin [Mass ratio] 1.3 {ratio} Normal [facility] Comment on above: Performed By: #### P T, PTT #### [facility] [address] [place] [address] Dr. Mirza Sadler ALP [Catalytic activity/Vol] 121 U/L Critically high 46-116 [facility] Comment on above: Performed By: #### P T, PTT #### [facility] [address] [place] [address] Dr. Mirza Sadler ALT [Catalytic activity/Vol] 22 U/L Normal 16-63 [facility] Comment on above: Performed By: #### P T, PTT #### [facility] [address] [place] [address] Dr. Mirza Sadler Anion gap [Moles/Vol] 16.0 mmol/L Normal [facility] Comment on above: Performed By: #### P T, PTT #### [facility] [address] [place] [address] Dr. Mirza Sadler AST [Catalytic activity/Vol] 18 U/L Normal 15-37 [facility] Comment on above: Performed By: #### P T, PTT #### [facility] [address] [place] [address] Dr. Mirza Sadler Bilirubin [Mass/Vol] 1.3 mg/dL Critically high 0.2-1.0 [facility] Comment on above: Performed By: #### P T, PTT #### [facility] [address] [place] [address] Dr. Mirza Sadler Calcium [Mass/Vol] 8.9 mg/dL Normal 8.5-10.1 [facility] Comment on above: Performed By: #### P T, PTT #### [facility] [address] [address] [address] Mirza Sadler Chloride [Moles/Vol] 105 mmol/L Normal 98-107 [facility] Comment on above: Performed By: #### P T, PTT #### [facility] [address] [address] [address] Mirza Sadler CO2 [Moles/Vol] 23.7 mmol/L Normal 21.0-32.0 [facility] Comment on above: Performed By: #### P T, PTT #### [facility] [address] [address] [address] Mirza Sadler Creatinine [Mass/Vol] 1.79 mg/dL Critically high 0.70-1.30 [facility] Comment on above: Performed By: #### P T, PTT #### [facility] [address] [place] [address] Dr. Mirza Sadler EGFR-AF MONEGASQUE 46 mL/min/1.73m2 Critically low >=60 [facility] Comment on above: Performed By: #### P T, PTT #### [facility] [address] [place] [address] Dr. Mirza Sadler EGFR-NON AF MONEGASQUE 38 mL/min/1.73m2 Critically low >=60 [facility] Comment on above: Performed By: #### P T, PTT #### [facility] [address] [place] [address] Dr. Mirza Sadler Globulin (S) [Mass/Vol] 3.3 g/dL Normal [facility] Comment on above: Performed By: #### P T, PTT #### [facility] [address] [place] [address] Dr. Mirza Sadler Glucose [Mass/Vol] 195 mg/dL Critically high 74-106 [facility] Comment on above: Performed By: #### P T, PTT #### [facility] [address] [place] [address] Dr. Mirza Sadler Potassium [Moles/Vol] 3.7 mmol/L Normal 3.5-5.1 [facility] Comment on above: Performed By: #### P T, PTT #### [facility] [address] [address] [address] Mirza Sadler Protein [Mass/Vol] 7.5 g/dL Normal 6.4-8.2 [facility] Comment on above: Performed By: #### P T, PTT #### [facility] [address] [address] [address] Mirza Sadler Sodium [Moles/Vol] 141 mmol/L Normal 136-145 [facility] Comment on above: Performed By: #### P T, PTT #### [facility] [address] [place] [address] Dr. Mirza Sadler Urea nitrogen [Mass/Vol] 25.0 mg/dL Critically high 7.0-18.0 [facility] Comment on above: Performed By: #### P T, PTT #### [facility] [address] [place] [address] Dr. Mirza Sadler Urea nitrogen/Creatinine [Mass ratio] 14.0 mg/mg Normal [facility] Comment on above: Performed By: #### P T, PTT #### [facility] [address] [place] [address] Dr. Mirza Sadler PROTIMEon 10-27-2021 INR Coag (PPP) [Relative time] 1.07 {INR} Normal [facility] Comment on above: Performed By: #### P T, PTT #### [facility] [address] [place] [address] Dr. Mirza Sadler INR GUIDELINES SEE BELOW Normal [facility] Comment on above: Result Comment: RIVKA RED INR: 2.0 - 3.0 CONDITIONS NOT LISTED BELOW 2.5 - 3.5 FOR PROSTHETIC HEART VALVE REPLACEMENT 2.5 - 3.5 RECURRENT THROMBOSIS Performed By: #### P T, PTT #### [facility] [address] [place] [address] Dr. Mirza Sadler PT Coag (PPP) [Time] 11.5 s Normal 9.0-11.6 [facility] Comment on above: Performed By: #### P T, PTT #### [facility] [address] [place], [place] [address] Dr. Mirza Sadler PTTon 10-27-2021 aPTT Coag (Bld) [Time] 25.1 s Normal 22.3-36.2 [facility] Comment on above: Performed By: #### P T, PTT #### [facility] [address] [place], [place] [address] Dr. Mirza Sadler XR CHEST 1 Von [...] Date: 2021-10-27 10:[address] [facility] 10-20-2021 [facility] Telephone (HEMASA) ----- LANI LIZAMA ([id number]) 1950 Date Time Provider Department 10/20/21 ABDON [...] Fully Assessed Reason for Visit: Lab Orders [9398] Primary Visit Diagnosis:Monoclonal gammopathy [D47.2] Order(s):CBC + DIFF [SQCBCDIF] Order #: [id number] FUTURE Prescriptions as of 10/24/2021 - famotidine [...] Status:Closed by VEE DAY on 10/24/21 Normal [facility] CT ABD/PELVIS WO Samantha 10-03 CT ABD/PELVIS WO CON EXAMINATION: CT [...] by: HIGINIO FLANAGAN Date: 2021-10-03 16:29 Normal [facility] PROF 14(COMP METB)on 022 Albumin [Mass/Vol] 4.1 g/dL Normal 3.4-5.0 [facility] Comment on above: Performed By: #### P T, PTT #### [facility] [address] [address] [address] Mirza Sadler Albumin/Globulin [Mass ratio] 1.2 {ratio} Normal [facility] Comment on above: Performed By: #### P T, PTT #### [facility] [address] [address] [address] Mirza Sadler ALP [Catalytic activity/Vol] 132 U/L Critically high 46-116 [facility] Comment on above: Performed By: #### P T, PTT #### [facility] [address] [address] [address] Mirza Sadler ALT [Catalytic activity/Vol] 30 U/L Normal 16-63 [facility] Comment on above: Performed By: #### P T, PTT #### [facility] [address] [address] [address] Mirza Sadler Anion gap [Moles/Vol] 10.7 mmol/L Normal Th [facility] Comment on above: Performed By: #### P T, PTT #### [facility] [address] [address] [address] Mirza Sadler AST [Catalytic activity/Vol] 21 U/L Normal 15-37 [facility] Comment on above: Performed By: #### P T, PTT #### [facility] [address] [address] [address] Mirza Sadler Bilirubin [Mass/Vol] 0.7 mg/dL Normal 0.2-1.0 [facility] Comment on above: Performed By: #### P T, PTT #### [facility] [address] [address] [address] Mirza Sadler Calcium [Mass/Vol] 9.0 mg/dL Normal 8.5-10.1 [facility] Comment on above: Performed By: #### P T, PTT #### [facility] [address] [place] [address] Dr. Mirza Sadler Chloride [Moles/Vol] 106 mmol/L Normal 98-107 [facility] Comment on above: Performed By: #### P T, PTT #### [facility] [address] [address] [address] Mirza Sadler CO2 [Moles/Vol] 27.5 mmol/L Normal 21.0-32.0 [facility] Comment on above: Performed By: #### P T, PTT #### [facility] [address] [address] [address] Mirza Sadler Creatinine [Mass/Vol] 1.77 mg/dL Critically high 0.70-1.30 [facility] Comment on above: Performed By: #### P T, PTT #### [facility] [address] [address] [address] Mirza Sadler EGFR-AF MONEGASQUE 46 mL/min/1.73m2 Critically low >=60 [facility] Comment on above: Performed By: #### P T, PTT #### [facility] [address] [address] [address] Mirza Sadler EGFR-NON AF MONEGASQUE 38 mL/min/1.73m2 Critically low >=60 [facility] Comment on above: Performed By: #### P T, PTT #### [facility] [address] [place] [address] Dr. Mirza Sadler Globulin (S) [Mass/Vol] 3.5 g/dL Normal [facility] Comment on above: Performed By: #### P T, PTT #### [facility] [address] [place] [address] Dr. Mirza Sadler Glucose [Mass/Vol] 135 mg/dL Critically high 74-106 [facility] Comment on above: Performed By: #### P T, PTT #### [facility] [address] [place] [address] Dr. Mirza Sadler Potassium [Moles/Vol] 4.2 mmol/L Normal 3.5-5.1 [facility] Comment on above: Performed By: #### P T, PTT #### [facility] [address] [address] [address] Mirza Sadler Protein [Mass/Vol] 7.6 g/dL Normal 6.4-8.2 [facility] Comment on above: Performed By: #### P T, PTT #### [facility] [address] [address] [address] Mirza Sadler Sodium [Moles/Vol] 140 mmol/L Normal 136-145 [facility] Comment on above: Performed By: #### P T, PTT #### [facility] [address] [place], [place] [address] Dr. Mirza Sadler Urea nitrogen [Mass/Vol] 17.0 mg/dL Normal 7.0-18.0 [facility] Comment on above: Performed By: #### P T, PTT #### [facility] [address] [place], [place] [address] Dr. Mirza Sadler Urea nitrogen/Creatinine [Mass ratio] 9.6 mg/mg Normal [facility] Comment on above: Performed By: #### P T, PTT #### [facility] [address] [place], [place] [address] Dr. Mirza Sadler US SINGLE QUAD RT [...] HIGINIO FLANAGAN Date: 2021-08-27 08:40 Normal [facility] A1C HEMOGLOBINon 07-17-2021 HbA1c (Bld) [Mass fraction] 6.9 % [employer] Other Glucose - FINGER STICKon Glucose [Mass/Vol] 180 mg/dL [employer] Other HbA1c (Bld) [Mass fraction]o n 07-17-2021 A1C HEMOGLOBIN [employer] Other A1C with Estimated Average G tracin 04-10-2021 HbA1c (Bld) [Mass fraction] 6.4 % [employer] Other HbA1c (Bld) [Mass fraction] 243 % [employer] Other Glucoseon 04-10-2021 Glucose [Mass/Vol] 243 mg/dL [employer] Other A1C HEMOGLOBINon 01-03-2021 HbA1c (Bld) [Mass fraction] 6.6 % [employer] Other Glucose - FINGER STICKon Glucose [Mass/Vol] 142 mg/dL [employer] Other HbA1c (Bld) [Mass fraction]o n 01-03-2021 A1C HEMOGLOBIN [facility] [employer] Other CNPNon 10-27-2020 [facility] Telephone (HEMASA) ----- LANI LIZAMA ([id number]) 1950 M Date Time Provider Department 10/27/20 [...] Status:Closed by ANGELINE WARE on 10/28/20 Normal [facility] Cardiovascular Lab Reporton 10-16-2018 Cardiovascular Lab Report [facility] Patient Name: Lani Lizama [facility] MR #: [id number] Physician: Pinky Bishop, Department of M.D. Medicine Service Date: 10/15/2018 Division of Birthdate: 1950 Cardiology Room #: [id number] Adult Cardiovascular Services [facility] [address] [facility] [place] [address] Cardiovascular Laboratory Report FINAL IMPRESSIONS: 1. Severe three-vessel [place] coronary artery disease. 2. Gzig-hu-dmvm bypass grafts patent. 3. Mild in-stent restenosis [...] 4. Follow up with me in the [facility] in the next 4-6 weeks. 5. [...] guidance and using a micropuncture kit. A 6-Colombian Glidesheath was inserted without difficulty. Coronary angiography [...] of the vessel. There is evidence of snch-gs-hdofk collaterals. The distal vessel is supplied via [...] is a long stented segment in the ogtaepod-dh-aywbbw portion of the vessel with 30% in-stent restenosis. The vessel distal to the touchdown shows caliber reduction and no discrete stenosis. There is diffuse disease in the branches. Saphenous vein graft to the posterior descending artery. This is widely patent. It shows an extensive stented segment from hxqvpsnt-ks-bbfnhddztr of the vessel. There is a 40%-50% [...] Jayshree Bishop M.D. Date Trans: 10/16/2018 05:01 Nakul/gatito [id number] cc: Harley Crespo D.O. [address] [place] [id number] Normal [facility] BASIC METABOLIC PANELon 09-29 Calcium [Mass/Vol] 8.9 mg/dL Normal 8.6-10.3 [facility] Comment on above: Order Comment: No: D o not add to previous draw Performed By: #### 1 69, [id number] #### [facility] [address] [place] [address], [place] Chloride [Moles/Vol] 110 mmol/L High 98-107 [facility] Comment on above: Order Comment: No: D o not add to previous draw Performed By: #### 1 69, [id number] #### [facility] [address] [place] [address], [place] CO2 [Moles/Vol] 26 mmol/L Normal 21-31 [facility] Comment on above: Order Comment: No: D o not add to previous draw Performed By: #### 1 69, [id number] #### [facility] [address] [place] [address], [place] Creatinine [Mass/Vol] 1.52 mg/dL High 0.70-1.30 [facility] Comment on above: Order Comment: No: D o not add to previous draw Performed By: #### 1 69, [id number] #### [facility] [address] [place] [address], [place] GFR/1.73 sq M predicted among blacks MDRD (S/P/Bld) [Vol rate/Area] 56 ml/min/1.73sq m Abnormal >60 [facility] Comment on above: Order Comment: No: D o not add to previous draw Performed By: #### 1 69, 55972 #### [facility] [address] [place] [address], [place] GFR/1.73 sq M predicted among non-blacks MDRD (S/P/Bld) [Vol rate/Area] 46 ml/min/1.73sq m Abnormal >60 [facility] Comment on above: Order Comment: No: D o not add to previous draw Performed By: #### 1 69, 64232 #### [facility] [address] [place] [address], [place] Glucose [Mass/Vol] 89 mg/dL Normal 70-100 [facility] Comment on above: Order Comment: No: D o not add to previous draw Performed By: #### 1 69, 39959 #### [facility] [address] [place] [address], [place] Potassium [Moles/Vol] 3.9 mmol/L Normal 3.5-5.1 [facility] Comment on above: Order Comment: No: D o not add to previous draw Performed By: #### 1 69, 74881 #### [facility] [address] [place] [address], [place] Sodium [Moles/Vol] 141 mmol/L Normal 136-145 [facility] Comment on above: Order Comment: No: D o not add to previous draw Performed By: #### 1 69, 87307 #### [facility] [address] [place] [address], [place] Urea nitrogen [Mass/Vol] 19 mg/dL Normal 7-25 [facility] Comment on above: Order Comment: No: D o not add to previous draw Performed By: #### 1 69, 91218 #### [facility] [address] [place] [address], [place] CBC W/DIFFon 10-15-2018 ABS BASOPHILS 0.1 10*3/uL Normal 0.0-0.2 [facility] Comment on above: Order Comment: No: D o not add to previous draw Performed By: #### 5 0103 #### [facility] [address] [place] [address], [place] ABS IMM GRANS 0.0 10*3/uL Normal 0.0-0.2 [facility] Comment on above: Order Comment: No: D o not add to previous draw Performed By: #### 5 0103 #### [facility] [address] [place] [address], [place] ABS NEUTROPHILS 3.5 10*3/uL Normal 1.6-7.6 [facility] Comment on above: Order Comment: No: D o not add to previous draw Performed By: #### 5 0103 #### [facility] [address] [place] [address], [place] Basophils/100 WBC (Bld) 0.8 % Normal 0.0-1.0 [facility] Comment on above: Order Comment: No: D o not add to previous draw Performed By: #### 5 0103 #### [facility] [address] [address], [place] Eosinophils (Bld) [#/Vol] 0.3 10*3/uL Normal 0.0-0.5 [facility] Comment on above: Order Comment: No: D o not add to previous draw Performed By: #### 5 0103 #### [facility] [address] [place] [address], [place] Eosinophils/100 WBC (Bld) 3.9 % Normal 0.0-6.0 [facility] Comment on above: Order Comment: No: D o not add to previous draw Performed By: #### 5 0103 #### [facility] [address] [place] [id number], [place] Erythrocyte distribution width (RBC) [Ratio] 13.5 % Normal 11.5-15.0 [facility] Comment on above: Order Comment: No: D o not add to previous draw Performed By: #### 5 0103 #### [facility] [address] [facility] [place] [place] [address], [place] Hematocrit (Bld) [Volume fraction] 39.7 % Normal 39.0-50.0 [facility] Comment on above: Order Comment: No: D o not add to previous draw Performed By: #### 5 0103 #### [facility] [address] [facility] [address], [place] Hemoglobin (Bld) [Mass/Vol] 13.0 g/dL Normal 13.0-17.0 [facility] Comment on above: Order Comment: No: D o not add to previous draw Performed By: #### 5 0103 #### [facility] [address] [facility] [place] [place] [address], [place] IMMATURE GRANS 0.3 % Normal 0.0-1.0 [facility] Comment on above: Order Comment: No: D o not add to previous draw Performed By: #### 5 0103 #### [facility] [address] [facility] [place] [place] [address], [place] Lymphocytes (Bld) [#/Vol] 1.9 10*3/uL Normal 1.2-4.0 [facility] Comment on above: Order Comment: No: D o not add to previous draw Performed By: #### 5 0103 #### [facility] [address] [facility] [place] [place] [address], [place] Lymphocytes/100 WBC (Bld) 30.1 % Normal 20.0-45.0 [facility] Comment on above: Order Comment: No: D o not add to previous draw Performed By: #### 5 0103 #### [facility] [address] [place] [address], [place] MCH (RBC) [Entitic mass] 30.0 pg Normal 27.0-33.0 [facility] Comment on above: Order Comment: No: D o not add to previous draw Performed By: #### 5 0103 #### [facility] [address] [place] [address], [place] MCHC (RBC) [Mass/Vol] 32.7 g/dL Normal 32.0-35.0 [facility] Comment on above: Order Comment: No: D o not add to previous draw Performed By: #### 5 0103 #### [facility] [address] [place] [id number], [place] MCV (RBC) [Entitic vol] 91.5 fL Normal 82.0-98.0 [facility] Comment on above: Order Comment: No: D o not add to previous draw Performed By: #### 5 0103 #### [facility] [address] [facility] [address], [facility] Monocytes (Bld) [#/Vol] 0.7 10*3/uL Normal 0.1-1.0 [facility] Comment on above: Order Comment: No: D o not add to previous draw Performed By: #### 5 0103 #### [facility] [address] [address], [place] MONOS 10.7 % Normal 5.0-12.0 [facility] Comment on above: Order Comment: No: D o not add to previous draw Performed By: #### 5 0103 #### [facility] [address] [place] [address], [place] Neutrophils/100 WBC (Bld) 54.2 % Normal 40.0-72.0 [facility] Comment on above: Order Comment: No: D o not add to previous draw Performed By: #### 5 0103 #### [facility] [address] [place] [id number], [place] Nucleated RBC/100 WBC (Bld) [Ratio] 0 % Normal 0-0 [facility] Comment on above: Order Comment: No: D o not add to previous draw Performed By: #### 5 0103 #### [facility] [address] [place] [address], [place] PLAT CNT 164 10*3/uL Normal 150-400 [facility] Comment on above: Order Comment: No: D o not add to previous draw Performed By: #### 5 0103 #### [facility] [address] [place] [address], [place] RBC (Bld) [#/Vol] 4.34 10*6/uL Normal 4.20-5.70 [facility] Comment on above: Order Comment: No: D o not add to previous draw Performed By: #### 5 0103 #### [facility] [address] [place] [address], [place] WBC (Bld) [#/Vol] 6.38 10*3/uL Normal 4.00-10.60 [facility] Comment on above: Order Comment: No: D o not add to previous draw Performed By: #### 5 0103 #### [facility] [address] [facility] [facility] [place] [address], [place] MAGNESIUM BLOODon 10-15-2018 Magnesium [Mass/Vol] 2.0 mg/dL Normal 1.9-2.7 [facility] Comment on above: Order Comment: No: D o not add to previous draw Performed By: #### 1 0070, [id number] #### [facility] [address] [place] [address], [place] PROTHROMBIN TIMEon 9 INR Coag (PPP) [Relative time] 1.11 {INR} Normal 0.91-1.16 [facility] Comment on above: Order Comment: [...] 1995;[id number]. Performed By: #### 5 6101 #### [address] PT Coag (PPP) [Time] 14.3 s Normal 12.3-14.8 [facility] Comment on above: Order Comment: No: D o not add to previous draw Result Comment: ALL RESULTS MUST BE INTERPRETED WITH RESPECT TO BLOOD DRAWING ARTIFACT OR DILUTION ERROR OF ANTICOAGULANT AT THE TIME OF SAMPLING. Performed By: #### 5 6101 #### [address] POC GLUCOSE LABon 10-14-2018 Glucose [Mass/Vol] 180 mg/dL High 70-100 [facility] Comment on above: Performed By: #### 8 [id number] #### [facility] [address] Cardiovascular Lab Reporton 02-25-2018 Cardiovascular Lab Report [facility] Patient Name: Lani Lizama [facility] MR #: [id number] Physician: Pinky Bishop Department of M.D. Medicine Service Date: 02/24/2018 Division of Birthdate: 1950 Cardiology Room #: 3AB [id number] Adult Cardiovascular Services [place] [address] Cardiovascular Laboratory Report FINAL IMPRESSIONS: 1. 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 2. Severe 3-vessel [place] coronary artery disease. 3. 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 4. Ylocsdeq-eq-bzyuel systemic hypertension. RECOMMENDATIONS: 1. Aspirin 81 mg lifelong. 2. Plavix 75 mg daily for a minimum of 6 months, preferably senior care. 3. Aggressive cardiovascular risk factor modification. 4. Optimization of medical management; high intensity statin therapy as tolerated, we will switch his Toprol-XL to Coreg 25 mg p.o. b.i.d., and angiotensin-converting enzyme inhibitor. 5. Follow up with me in the [facility] in the next 2-3 weeks. 6. Follow up with Dr. Crespo as scheduled. PROCEDURES: Limited femoral angiography, bilateral selective coronary angiography, saphenous vein graft angiography, angiography of the left internal mammary artery graft, limited angiography of the left subclavian, percutaneous balloon angioplasty, and Synergy drug-eluting stent placement to the saphenous vein graft to the obtuse marginal, placement of a 6-Colombian MYNXGRIP closure device. METHODS: After risks, benefits, and alternatives were explained, written informed consent was obtained. The patient was prepped and draped in usual sterile fashion over both groins. Using 1% lidocaine solution, local infiltration anesthesia was achieved over the right groin. Using a micropuncture kit, access of the right common femoral artery was obtained. A 6-Colombian 11 cm sheath was exchanged then without [...] to proceed with an interventional procedure. A 6-Colombian JR4 guide catheter was advanced in and [...] the procedure. All catheters were removed. A 6-Colombian MYNXGRIP closure device was deployed per protocol [...] is a 30% touchdown stenosis of the [place] vessel. There is evidence of ruvv-dy-zmhii collaterals supplying the distal right coronary artery. Limited femoral angiography, this shows mild plaque and anatomy suitable for closure device. INDICATIONS: Unstable angina. Electronically Signed by: Pinky Bishop M.D. 03/06/2018 12:15 P Pinky Bishop M.D. Date Dict: 02/24/2018/01:39 P/Pinky Bishop M.D. Date Trans: 02/25/2018 02:12 Nakul/gatito [id number] cc: Harley Crespo D.O. [address] [place] [id number] Normal [facility] POC GLUCOSE LABon 02-25-2018 Glucose [Mass/Vol] 150 mg/dL High 70-100 [facility] Comment on above: Performed By: #### 8 [id number] #### [facility] [address] [facility] [place] [address], [place] POC GLUCOSE LABon 02-24-2018 Glucose [Mass/Vol] 192 mg/dL High 70-100 [facility] Comment on above: Performed By: #### 8 [id number] #### [facility] [address] [facility] [place] [address], [place] Glucose [Mass/Vol] 186 mg/dL High 70-100 [facility] Comment on above: Performed By: #### 8 [id number] #### [facility] [address] [facility] [place], [place] [id number] [place] [address] Vital Signs Date Time Vital Sign Value Performing Clinician Facility 08-25-2024 11:33-0400 Body height 170.18 cm [facility] 08-25-2024 11:33-0400 Body mass index (BMI) [Ratio] 26.9 kg/m2 [facility] 08-25-2024 11:33-0400 Body weight 77.79 kg [facility] 08-25-2024 11:33-0400 Diastolic blood pressure 73 mm[Hg] [facility] 08-25-2024 11:33-0400 Heart rate 77 /min [facility] 08-25-2024 11:33-0400 Respiratory rate 12 /min [facility] 08-25-2024 11:33-0400 SaO2% (BldA) [Mass fraction] 97 % [facility] 08-25-2024 11:33-0400 Systolic blood pressure 126 mm[Hg] [facility] 08-03-2024 09:28-0400 Body height 170.18 cm Harley Ball DO Work Phone: [facility] 08-03-2024 09:28-0400 Body mass index (BMI) [Ratio] 31.8 kg/m2 Harley Ball DO Work Phone: [facility] 08-03-2024 09:28-0400 Body weight 92.4 kg Harley Ball DO Work Phone: [facility] 08-03-2024 09:28-0400 Diastolic blood pressure 83 mm[Hg] Harley Ball DO Work Phone: [facility] 08-03-2024 09:28-0400 Heart rate 77 /min Harley Ball DO Work Phone: [facility] 08-03-2024 09:28-0400 Respiratory rate 18 /min Harley Ball DO Work Phone: [facility] 08-03-2024 09:28-0400 SaO2% (BldA) [Mass fraction] 99 % Harley Ball DO Work Phone: [facility] 08-03-2024 09:28-0400 Systolic blood pressure 143 mm[Hg] Harley Ball DO Work Phone: [facility] 07-27-2024 11:29-0400 Diastolic blood pressure 80 mm[Hg] Harley Ball DO Work Phone: [facility] 07-27-2024 11:29-0400 Heart rate 74 /min Harley Ball DO Work Phone: [facility] 07-27-2024 11:29-0400 Systolic blood pressure 143 mm[Hg] Harley Ball DO Work Phone: [facility] 07-27-2024 11:23-0400 Body height 170.18 cm Harley Ball DO Work Phone: [facility] 07-27-2024 11:23-0400 Body mass index (BMI) [Ratio] 28.8 kg/m2 Harley Ball DO Work Phone: [facility] 07-27-2024 11:23-0400 Body weight 83.57 kg Harley Ball DO Work Phone: [facility] 07-27-2024 11:23-0400 Respiratory rate 12 /min Harley Ball DO Work Phone: [facility] 07-27-2024 11:23-0400 SaO2% (BldA) [Mass fraction] 100 % Harley Ball DO Work Phone: [facility] 07-14-2024 09:43-0400 Body height 170.18 cm Harley Ball DO Work Phone: [facility] 07-14-2024 09:43-0400 Body mass index (BMI) [Ratio] 28.1 kg/m2 Harley Ball DO Work Phone: [facility] 07-14-2024 09:43-0400 Body weight 81.64 kg Harley Ball DO Work Phone: [facility] 07-14-2024 09:43-0400 Diastolic blood pressure 83 mm[Hg] Harley Ball DO Work Phone: [facility] 07-14-2024 09:43-0400 Heart rate 74 /min Harley Ball DO Work Phone: [facility] 07-14-2024 09:43-0400 Respiratory rate 16 /min Harley Ball DO Work Phone: [facility] 07-14-2024 09:43-0400 SaO2% (BldA) [Mass fraction] 99 % Harley Ball DO Work Phone: [facility] 07-14-2024 09:43-0400 Systolic blood pressure 141 mm[Hg] Harley Ball DO Work Phone: [facility] 04-30-2024 09:42-0500 Body height 170.18 cm [facility] 04-30-2024 09:42-0500 Body mass index (BMI) [Ratio] 27.9 kg/m2 [facility] 04-30-2024 09:42-0500 Body weight 80.96 kg [facility] 04-30-2024 09:42-0500 Diastolic blood pressure 80 mm[Hg] [facility] 04-30-2024 09:42-0500 Heart rate 81 /min [facility] 04-30-2024 09:42-0500 Respiratory rate 18 /min [facility] 04-30-2024 09:42-0500 SaO2% (BldA) [Mass fraction] 98 % [facility] 04-30-2024 09:42-0500 Systolic blood pressure 134 mm[Hg] [facility] 04-16-2024 08:24-0500 Body height 170.18 cm [facility] 04-16-2024 08:24-0500 Body mass index (BMI) [Ratio] 28.2 kg/m2 [facility] 04-16-2024 08:24-0500 Body weight 81.76 kg [facility] 04-16-2024 08:24-0500 Diastolic blood pressure 80 mm[Hg] [facility] 04-16-2024 08:24-0500 Heart rate 84 /min [facility] 04-16-2024 08:24-0500 Respiratory rate 12 /min [facility] 04-16-2024 08:24-0500 SaO2% (BldA) [Mass fraction] 97 % [facility] 04-16-2024 08:24-0500 Systolic blood pressure 137 mm[Hg] [facility] 04-02-2024 11:44-0500 Body height 170.2 cm Kenneth Tavera DPM Work Phone: [facility] 04-02-2024 11:44-0500 Body mass index (BMI) [Ratio] 26.78 kg/m2 Kenneth Brown DPM Work Phone: [facility] 04-02-2024 11:44-0500 Body weight 77.56 kg Kenneth Brown DPM Work Phone: [facility] 04-02-2024 11:44-0500 Respiratory rate 18 /min Kenneth Tavera DPM Work Phone: [facility] 02-24-2024 09:46-0500 Body height 170.18 cm [facility] 02-24-2024 09:46-0500 Body mass index (BMI) [Ratio] 27.1 kg/m2 [facility] 02-24-2024 09:46-0500 Body weight 78.47 kg [facility] 02-24-2024 09:46-0500 Diastolic blood pressure 68 mm[Hg] [facility] 02-24-2024 09:46-0500 Heart rate 80 /min [facility] 02-24-2024 09:46-0500 SaO2% (BldA) [Mass fraction] 97 % [facility] 02-24-2024 09:46-0500 Systolic blood pressure 110 mm[Hg] [facility] 01-23-2024 11:29-0400 Body height 170.2 cm Kenneth Tavera DPM Work Phone: [facility] 01-23-2024 11:29-0400 Body mass index (BMI) [Ratio] 26.78 kg/m2 Kenneth Brown DPM Work Phone: [facility] 01-23-2024 11:29-0400 [...] [facility] 01-23-2024 09:05-0400 Body height 170.18 cm [facility] 01-23-2024 09:05-0400 Body mass index (BMI) [Ratio] 27.3 kg/m2 [facility] 01-23-2024 09:05-0400 Body weight 79.37 kg [facility] 01-23-2024 09:05-0400 Diastolic blood pressure 71 mm[Hg] [facility] 01-23-2024 09:05-0400 Heart rate 78 /min [facility] 01-23-2024 09:05-0400 Respiratory rate 18 /min [facility] 01-23-2024 09:05-0400 SaO2% (BldA) [Mass fraction] 98 % [facility] 01-23-2024 09:05-0400 Systolic blood pressure 106 mm[Hg] [facility] 01-07-2024 08:26-0400 Body height 170.18 cm [facility] 01-07-2024 08:26-0400 Body mass index (BMI) [Ratio] 27.2 kg/m2 [facility] 01-07-2024 08:26-0400 Body temperature 96.7 [degF] [facility] 01-07-2024 08:26-0400 Body weight 78.98 kg [facility] 01-07-2024 08:26-0400 Diastolic blood pressure 77 mm[Hg] [facility] 01-07-2024 08:26-0400 Heart rate 91 /min [facility] 01-07-2024 08:26-0400 Respiratory rate 16 /min [facility] 01-07-2024 08:26-0400 SaO2% (BldA) [Mass fraction] 97 % [facility] 01-07-2024 08:26-0400 Systolic blood pressure 123 mm[Hg] [facility] 12-12-2023 08:25-0400 Body height 170.18 cm [facility] 12-12-2023 08:25-0400 Body mass index (BMI) [Ratio] 27.4 kg/m2 [facility] 12-12-2023 08:25-0400 Body weight 79.49 kg [facility] 12-12-2023 08:25-0400 Diastolic blood pressure 79 mm[Hg] [facility] 12-12-2023 08:25-0400 Heart rate 80 /min [facility] 12-12-2023 08:25-0400 Respiratory rate 12 /min [facility] 12-12-2023 08:25-0400 Systolic blood pressure 127 mm[Hg] [facility] 10-17-2023 09:21-0400 Body height 170.18 cm [facility] 10-17-2023 09:21-0400 Body mass index (BMI) [Ratio] 28.2 kg/m2 [facility] 10-17-2023 09:21-0400 Body weight 81.81 kg [facility] 10-17-2023 09:21-0400 Diastolic blood pressure 79 mm[Hg] [facility] 10-17-2023 09:21-0400 Heart rate 70 /min [facility] 10-17-2023 09:21-0400 Respiratory rate 18 /min [facility] 10-17-2023 09:21-0400 SaO2% (BldA) [Mass fraction] 97 % [facility] 10-17-2023 09:21-0400 Systolic blood pressure 133 mm[Hg] [facility] 08-12-2023 08:37-0400 Body height 170.18 cm [facility] 08-12-2023 08:37-0400 Body mass index (BMI) [Ratio] 27.6 kg/m2 [facility] 08-12-2023 08:37-0400 Body weight 79.88 kg [facility] 08-12-2023 08:37-0400 Diastolic blood pressure 84 mm[Hg] [facility] 08-12-2023 08:37-0400 Heart rate 82 /min [facility] 08-12-2023 08:37-0400 Respiratory rate 12 /min [facility] 08-12-2023 08:37-0400 Systolic blood pressure 134 mm[Hg] [facility] 07-02-2023 08:54-0400 Body height 170.18 cm [facility] 07-02-2023 08:54-0400 Body mass index (BMI) [Ratio] 27.3 kg/m2 [facility] 07-02-2023 08:54-0400 Body temperature 96.5 [degF] [facility] 07-02-2023 08:54-0400 Body weight 79.09 kg [facility] 07-02-2023 08:54-0400 Diastolic blood pressure 79 mm[Hg] [facility] 07-02-2023 08:54-0400 Heart rate 87 /min [facility] 07-02-2023 08:54-0400 Respiratory rate 18 /min [facility] 07-02-2023 08:54-0400 SaO2% (BldA) [Mass fraction] 96 % [facility] 07-02-2023 08:54-0400 Systolic blood pressure 120 mm[Hg] [facility] 06-18-2023 10:51-0400 Body height 170.18 cm [facility] 06-18-2023 10:51-0400 Body mass index (BMI) [Ratio] 26.6 kg/m2 [facility] 06-18-2023 10:51-0400 Body weight 77.11 kg [facility] 06-18-2023 10:51-0400 Diastolic blood pressure 84 mm[Hg] [facility] 06-18-2023 10:51-0400 Heart rate 95 /min [facility] 06-18-2023 10:51-0400 Respiratory rate 18 /min [facility] 06-18-2023 10:51-0400 SaO2% (BldA) [Mass fraction] 97 % [facility] 06-18-2023 10:51-0400 Systolic blood pressure 127 mm[Hg] [facility] 05-03-2023 09:30-0500 Body height 170.18 cm DO Harley Ball Work Phone: [facility] 05-03-2023 09:30-0500 Body weight 77.29 kg DO Harley Ball Work Phone: [facility] 05-03-2023 09:30-0500 Diastolic blood pressure 85 mm[Hg] DO Harley Ball Work Phone: [facility] 05-03-2023 09:30-0500 Systolic blood pressure 126 mm[Hg] DO Harley Ball Work Phone: [facility] 03-12-2023 11:15-0500 Body height 170.18 cm Tondra Mapus Other [facility] 03-12-2023 11:15-0500 Body mass index (BMI) [Ratio] 27.03 kg/m2 Tondra Mapus Other [facility] Other 03-12-2023 11:15-0500 Body weight 78.29 kg Tondra Mapus Other [facility] 03-12-2023 11:15-0500 Diastolic blood pressure 79 mm[Hg] Tondra Mapus Other [facility] 03-12-2023 11:15-0500 Respiratory rate 18 /min Tondra Mapus Other [facility] Other 03-12-2023 11:15-0500 SaO2% (BldA) [Mass fraction] 98 % Tondra Mapus Other [facility] Other 03-12-2023 11:15-0500 Systolic blood pressure 128 mm[Hg] Tondra Mapus Other [facility] 01-07-2023 10:00-0400 Body height 170.18 cm Kingsley Latisha Other [facility] Other 01-07-2023 10:00-0400 Body mass index (BMI) [Ratio] 27 kg/m2 Kingsley Latisha Other [facility] Other 01-07-2023 10:00-0400 Body temperature 97.7 [degF] Kingsley Latisha Other [facility] Other 01-07-2023 10:00-0400 Body weight 78.2 kg Kingsley Latisha Other [facility] Other 01-07-2023 10:00-0400 Diastolic blood pressure 73 mm[Hg] Kingsley Latisha Other [facility] Other 01-07-2023 10:00-0400 Respiratory rate 16 /min Kingsley Latisha Other [facility] Other 01-07-2023 10:00-0400 SaO2% (BldA) [Mass fraction] 98 % Kingsley Latisha Other [facility] Other 01-07-2023 10:00-0400 Systolic blood pressure 108 mm[Hg] Kingsley Latisha Other [facility] Other 12-31-2022 09:30-0400 Body height 170.18 cm Harley Ball Other [facility] Other 12-31-2022 09:30-0400 Body mass index (BMI) [Ratio] 27.03 kg/m2 Harley Ball Other [facility] Other 12-31-2022 09:30-0400 Body weight 78.29 kg Harley Ball Other [facility] Other 12-31-2022 09:30-0400 Diastolic blood pressure 69 mm[Hg] Harley Ball Other [facility] Other 12-31-2022 09:30-0400 Respiratory rate 16 /min Harley Ball Other [facility] Other 12-31-2022 09:30-0400 Systolic blood pressure 102 mm[Hg] Harley Ball Other [facility] Other 08-31-2022 08:45-0400 Body height 170.18 cm Harley Ball Other [facility] Other 08-31-2022 08:45-0400 Body mass index (BMI) [Ratio] 26.72 kg/m2 Harley Ball Other [facility] Other 08-31-2022 08:45-0400 Body weight 77.38 kg Harley Ball Other [facility] Other 08-31-2022 08:45-0400 Diastolic blood pressure 69 mm[Hg] Harley Ball Other [facility] Other 08-31-2022 08:45-0400 Respiratory rate 12 /min Harley Ball Other [facility] Other 08-31-2022 08:45-0400 Systolic blood pressure 102 mm[Hg] Harley Ball Other [facility] Other 07-02-2022 10:40-0400 Body height 170.18 cm Kingsley Latisha Other [facility] Other 07-02-2022 10:40-0400 Body mass index (BMI) [Ratio] 27.69 kg/m2 Kingsley Latisha Other [facility] Other 07-02-2022 10:40-0400 Body temperature 96.4 [degF] Kingsley Latisha Other [facility] Other 07-02-2022 10:40-0400 Body weight 80.2 kg Kingsley Latisha Other [facility] Other 07-02-2022 10:40-0400 Diastolic blood pressure 71 mm[Hg] Kingsley Latisha Other [facility] Other 07-02-2022 10:40-0400 Respiratory rate 16 /min Kingsley Latisha Other [facility] Other 07-02-2022 10:40-0400 SaO2% (BldA) [Mass fraction] 97 % Kingsley Latisha Other [facility] Other 07-02-2022 10:40-0400 Systolic blood pressure 115 mm[Hg] Kingsley Latisha Other [facility] Other 06-28-2022 09:30-0400 Body height 170.18 cm Harley Ball Other [facility] Other 06-28-2022 09:30-0400 Body mass index (BMI) [Ratio] 27.16 kg/m2 Harley Ball Other [facility] Other 06-28-2022 09:30-0400 Body weight 78.65 kg Harley Ball Other [facility] Other 06-28-2022 09:30-0400 Diastolic blood pressure 66 mm[Hg] Harley Ball Other [facility] Other 06-28-2022 09:30-0400 Respiratory rate 12 /min Harley Ball Other [facility] Other 06-28-2022 09:30-0400 Systolic blood pressure 115 mm[Hg] Harley Ball Other [facility] Other 06-26-2022 08:45-0400 Body height 170.18 cm Tondra Mapus Other [facility] Other 06-26-2022 08:45-0400 Body mass index (BMI) [Ratio] 27.75 kg/m2 Tondra Mapus Other [facility] Other 06-26-2022 08:45-0400 Body weight 80.38 kg Tondra Mapus Other [facility] Other 06-26-2022 08:45-0400 Diastolic blood pressure 61 mm[Hg] Tondra Mapus Other [facility] Other 06-26-2022 08:45-0400 Respiratory rate 16 /min Tondra Mapus Other [facility] Other 06-26-2022 08:45-0400 SaO2% (BldA) [Mass fraction] 96 % Tondra Mapus Other [facility] Other 06-26-2022 08:45-0400 Systolic blood pressure 105 mm[Hg] Tondra Mapus Other [facility] Other 03-20-2022 09:15-0500 Body height 170.18 cm Tondra Mapus Other [facility] Other 03-20-2022 09:15-0500 Body mass index (BMI) [Ratio] 26.15 kg/m2 Tondra Mapus Other [facility] Other 03-20-2022 09:15-0500 Body weight 75.75 kg Tondra Mapus Other [facility] Other 03-20-2022 09:15-0500 Diastolic blood pressure 57 mm[Hg] Tondra Mapus Other [facility] Other 03-20-2022 09:15-0500 Respiratory rate 16 /min Tondra Mapus Other [facility] Other 03-20-2022 09:15-0500 SaO2% (BldA) [Mass fraction] 98 % Tondra Mapus Other [facility] Other 03-20-2022 09:15-0500 Systolic blood pressure 117 mm[Hg] Tondra Mapus Other [facility] Other 01-17-2022 11:45-0400 Body height 170.18 cm DO Harley Ball Work Phone: [facility] 01-17-2022 11:22-0400 Diastolic blood pressure 68 mm[Hg] DO Harley Ball Work Phone: [facility] 01-17-2022 11:22-0400 Heart rate 60 /min DO Harley Ball Work Phone: [facility] 01-17-2022 11:22-0400 Systolic blood pressure 118 mm[Hg] DO Harley Ball Work Phone: [facility] 01-17-2022 11:05-0400 Body temperature 97.4 [degF] DO Harley Ball Work Phone: [facility] 01-17-2022 11:05-0400 Respiratory rate 18 /min DO Harley Ball Work Phone: [facility] 01-17-2022 11:05-0400 SaO2% (BldA) [Mass fraction] 95 % DO Harley Ball Work Phone: [facility] 01-17-2022 06:58-0400 Body weight 77.9 kg DO Hraley Ball Work Phone: [facility] 01-15-2022 15:23-0400 Inhaled oxygen flow rate 2 L/min DO Harley Ball Work Phone: [facility] 12-18-2021 09:45-0400 Body height 170.18 cm Tondra [employer] Other [facility] Other 12-18-2021 09:45-0400 Body mass index (BMI) [Ratio] 27.25 kg/m2 Tondra Mapus Other [facility] Other 12-18-2021 09:45-0400 Body weight 78.93 kg Tondra Mapus Other [facility] Other 12-18-2021 09:45-0400 Diastolic blood pressure 65 mm[Hg] Tondra Mapus Other [facility] Other 12-18-2021 09:45-0400 Respiratory rate 16 /min Tondra Mapus Other [facility] Other 12-18-2021 09:45-0400 SaO2% (BldA) [Mass fraction] 97 % Tondra Mapus Other [facility] Other 12-18-2021 09:45-0400 Systolic blood pressure 133 mm[Hg] Tondra Mapus Other [facility] Other 09-29-2021 13:13-0400 Blood Pressure Location [facility] [employer] [facility] 09-29-2021 13:13-0400 Diastolic blood pressure 74 mm[Hg] Gagan NILL [facility] [place] 09-29-2021 13:13-0400 Heart rate 60 /min Gagan NILL [facility] 09-29-2021 13:13-0400 Respiratory rate 16 /min Gagan NILL [facility] 09-29-2021 13:13-0400 Systolic blood pressure 138 mm[Hg] Gagan NILL [facility] [place] 07-17-2021 09:45-0400 Body height 170.18 cm Tondra Mapus Other [facility] Other 07-17-2021 09:45-0400 Body mass index (BMI) [Ratio] 30.69 kg/m2 Tondra Mapus Other [facility] Other 07-17-2021 09:45-0400 Body weight 88.91 kg Tondra [facility] Other [facility] Other 07-17-2021 09:45-0400 Diastolic blood pressure 73 mm[Hg] Tondra Mapus Other [facility] Other 07-17-2021 09:45-0400 Respiratory rate 16 /min Tondra Mapus Other [facility] Other 07-17-2021 09:45-0400 SaO2% (BldA) [Mass fraction] 97 % Tondra Mapus Other [facility] Other 07-17-2021 09:45-0400 Systolic blood pressure 163 mm[Hg] Tondra Mapus Other [facility] Other 06-06-2021 10:20-0500 Body height 170.18 cm Kingsley Latisha Other [facility] Other 06-06-2021 10:20-0500 Body mass index (BMI) [Ratio] 30.29 kg/m2 Kingsley Latisha Other [facility] Other 06-06-2021 10:20-0500 Body temperature 96.1 [degF] Kingsley Latisha Other [facility] Other 06-06-2021 10:20-0500 Body weight 87.73 kg Kingsley Latisha Other [facility] Other 06-06-2021 10:20-0500 Diastolic blood pressure 70 mm[Hg] Kingsley Latisha Other [facility] Other 06-06-2021 10:20-0500 Respiratory rate 18 /min Kingsley Latisha Other [facility] Other 06-06-2021 10:20-0500 SaO2% (BldA) [Mass fraction] 97 % Kingsley Latisha Other [facility] Other 06-06-2021 10:20-0500 Systolic blood pressure 160 mm[Hg] Kingsley Latisha Other [facility] Other 04-10-2021 09:15-0500 Body height 170.18 cm Tondra Mapus Other [facility] Other 04-10-2021 09:15-0500 Body mass index (BMI) [Ratio] 30.99 kg/m2 Tondra Mapus Other [facility] Other 04-10-2021 09:15-0500 Body weight 89.77 kg Tondra Mapus Other [facility] Other 04-10-2021 09:15-0500 Diastolic blood pressure 64 mm[Hg] Tondra Mapus Other [facility] Other 04-10-2021 09:15-0500 Respiratory rate 18 /min Tondra Mapus Other [facility] Other 04-10-2021 09:15-0500 SaO2% (BldA) [Mass fraction] 98 % Tondra Mapus Other [facility] Other 04-10-2021 09:15-0500 Systolic blood pressure 136 mm[Hg] Tondra Mapus Other [facility] Other 02-14-2021 10:00-0500 Body height 170.18 cm Kingsley Latisha Other [facility] Other 02-14-2021 10:00-0500 Body mass index (BMI) [Ratio] 30.98 kg/m2 Kingsley Latisha Other [facility] Other 02-14-2021 10:00-0500 Body temperature 96 [degF] Kingsley Latisha Other [facility] Other 02-14-2021 10:00-0500 Body weight 89.72 kg Kingsley Latisha Other [facility] Other 02-14-2021 10:00-0500 Diastolic blood pressure 60 mm[Hg] Kingsley Latisha Other [facility] Other 02-14-2021 10:00-0500 Respiratory rate 16 /min Kingsley Latisha Other [facility] Other 02-14-2021 10:00-0500 SaO2% (BldA) [Mass fraction] 97 % Kingsley Latisha Other [facility] Other 02-14-2021 10:00-0500 Systolic blood pressure 130 mm[Hg] Kingsley Latisha Other [facility] Other 01-03-2021 10:15-0400 Body height 170.18 cm Tondra Mapus Other [facility] Other 01-03-2021 10:15-0400 Body mass index (BMI) [Ratio] 31.01 kg/m2 Tondra Mapus Other [facility] Other 01-03-2021 10:15-0400 Body weight 89.81 kg Tondra Mapus Other [facility] Other 01-03-2021 10:15-0400 Diastolic blood pressure 67 mm[Hg] Tondra Mapus Other [facility] Other 01-03-2021 10:15-0400 Respiratory rate 16 /min Tondra Mapus Other [facility] Other 01-03-2021 10:15-0400 SaO2% (BldA) [Mass fraction] 99 % Tondra Mapus Other [facility] Other 01-03-2021 10:15-0400 Systolic blood pressure 151 mm[Hg] Tondra Mapus Other [facility] Other Encounters Encounter Date Encounter Type Care Provider Facility Start: 08-28-2024 End: 08-28-2024 ambulatory OBI [facility] Start: 08-28-2024 End: 08-28-2024 ambulatory OBI [facility] Start: 08-27-2024 End: 08-27-2024 ambulatory Harley Ball Facility:[facility] Start: 08-27-2024 Non-patient / Non-visit [facility] Work Phone: Start: 08-25-2024 End: 08-25-2024 ambulatory [facility] Work Phone: Start: 08-25-2024 End: 08-25-2024 Patient encounter procedure [facility] Work Phone: Start: 08-21-2024 Non-patient / Non-visit [facility] Work Phone: Start: 08-20-2024 End: 08-20-2024 ambulatory EHAB VIJAY [facility] Start: 08-14-2024 Evaluation and management of inpatient TATIANNA [facility] Start: 08-13-2024 Evaluation and management of inpatient TATIANNA [facility] Start: 08-13-2024 End: 08-14-2024 Evaluation and management of inpatient KATARZYNA Solomon WILL [facility] Start: 08-13-2024 Non-patient / Non-visit [facility] Work Phone: Start: 08-04-2024 End: 08-04-2024 ambulatory OBI [facility] Start: 08-04-2024 End: 08-04-2024 ambulatory Jason LARKIN [facility] Start: 08-04-2024 End: 08-04-2024 Patient encounter procedure Jason LARKIN [facility] Start: 08-03-2024 End: 08-03-2024 ambulatory Jason LARKIN Facility:[facility] Start: 08-03-2024 End: 08-03-2024 Lab Drop off Jason LARKIN [facility] Start: 08-03-2024 End: 08-03-2024 ambulatory HARLEY CRESPO Facility:[facility] Start: 08-03-2024 End: 08-03-2024 ambulatory Harley Crespo DO Work Phone: [facility] Work Phone: Start: 08-03-2024 End: 08-03-2024 Patient encounter procedure Harley Crespo DO Work Phone: [facility] Work Phone: Start: 07-27-2024 End: 07-27-2024 ambulatory Harley Ball DO Work Phone: [facility] Work Phone: Start: 07-27-2024 End: 07-27-2024 Patient encounter procedure Harley Ball DO Work Phone: [facility] Work Phone: Start: 07-17-2024 ambulatory EMEKA NICHOLAS [facility] Start: 07-16-2024 Non-patient / Non-visit Benjam in Ball DO Work Phone: [facility] Work Phone: Start: 07-15-2024 ambulatory Jasongenia LARKIN Facility :[facility] Start: 07-15-2024 Non-patient / Non-visit Benjam in Ball DO Work Phone: [facility] Work Phone: Start: 07-14-2024 End: 07-14-2024 ambulatory Harley Ball DO Work Phone: [facility] Work Phone: Start: 07-14-2024 End: 07-14-2024 Patient encounter procedure Harley Ball DO Work Phone: [facility] Work Phone: Start: 07-07-2024 End: 07-07-2024 ambulatory Kingsley Latisha Facility:[facility] Start: 07-07-2024 Non-patient / Non-visit Benjam in Ball DO Work Phone: [facility] Work Phone: Start: 06-22-2024 ambulatory KEVIN ARTEAGA [facility] Start: 06-18-2024 End: 06-18-2024 ambulatory KENNETH TAVERA Not Available Start: 06-10-2024 Non-patient / Non-visit Benjam in Ball DO Work Phone: [facility] Work Phone: Start: 05-28-2024 End: 05-28-2024 Departed Referred Harley Crespo DO Work Phone: [facility] Work Phone: Start: 05-28-2024 End: 05-28-2024 Patient encounter procedure Harley Crespo DO Work Phone: [facility] Work Phone: Start: 05-28-2024 End: 05-28-2024 ambulatory Harley Crespo DO Work Phone: [facility] Work Phone: Start: 05-26-2024 End: 05-26-2024 ambulatory [facility] Start: 05-18-2024 ambulatory [facility] Start: 05-05-2024 Non-patient / Non-visit Benjam in Ball DO Work Phone: [facility] Work Phone: Start: 04-30-2024 End: 04-30-2024 ambulatory [facility] Work Phone: Start: 04-30-2024 End: 04-30-2024 Patient encounter procedure [facility] Work Phone: Start: 04-21-2024 ambulatory [facility] Start: 04-16-2024 End: 04-16-2024 Patient encounter procedure [facility] Work Phone: Start: 04-02-2024 End: 04-02-2024 Ashley Tavera DPM Work Phone: [facility] Start: 04-02-2024 End: 04-02-2024 Ashley Tavera DPM Work Phone: [facility] Start: 04-02-2024 End: 04-02-2024 Patient encounter procedure Kenneth Tavera DPM Work Phone: [facility] Comment on above: 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, without long-term current use of insulin ([facility]) (Primary Dx); Pain due to onychomycosis of toenails of both feet Start: 04-02-2024 End: 04-02-2024 ambulatory KENNETH TAVERA Not Available Start: 03-26-2024 ambulatory [facility] Start: 03-10-2024 End: 03-10-2024 ambulatory [facility] Start: 03-06-2024 ambulatory [facility] Start: 02-24-2024 End: 02-24-2024 Patient encounter procedure [facility] Work Phone: Start: 02-20-2024 ambulatory [facility] Start: 02-18-2024 Non-patient / Non-visit [facility] Work Phone: Start: 02-18-2024 Non-patient / Non-visit [facility] Work Phone: Start: 02-13-2024 [facility] Start: 02-13-2024 Evaluation and management of inpatient BONAVENTURE [facility] Start: 02-13-2024 Evaluation and management of inpatient BONAVENTURE [facility] Start: 02-13-2024 End: 02-14-2024 [facility] Start: 02-12-2024 Non-patient / Non-visit [facility] Work Phone: Start: 02-12-2024 Non-patient / Non-visit [facility] Work Phone: Start: 01-23-2024 End: 01-23-2024 [...] polyneuropathy, without long-term current use of insulin (CMS/HCC); Pain due to onychomycosis of toenails of both feet Start: 01-23-2024 End: 01-23-2024 ambulatory KENNETH TAVERA Not Available Start: 01-23-2024 End: 01-23-2024 ambulatory [facility] Work Phone: Start: 01-23-2024 End: 01-23-2024 Patient encounter procedure [facility] Work Phone: Start: 01-21-2024 ambulatory [facility] Start: 01-21-2024 Encounter for preprocedural cardiovascular examination [facility] Start: 01-16-2024 ambulatory [facility] Start: 01-10-2024 ambulatory [facility] Start: 01-09-2024 ambulatory [facility] Start: 01-07-2024 End: 01-07-2024 ambulatory [facility] Work Phone: Start: 01-07-2024 End: 01-07-2024 Patient encounter procedure [facility] [place] Work Phone: Start: 12-30-2023 Non-patient / Non-visit [facility] Work Phone: Start: 12-12-2023 End: 12-12-2023 ambulatory [facility] Work Phone: Start: 12-12-2023 End: 12-12-2023 Patient encounter procedure [facility] Work Phone: Start: 11-28-2023 ambulatory [facility] Start: 11-12-2023 End: 11-12-2023 ambulatory [facility] Start: 11-07-2023 End: 11-07-2023 ambulatory KENNETH TAVERA Not Available Start: 10-17-2023 End: 10-17-2023 ambulatory [facility] Work Phone: Start: 10-17-2023 End: 10-17-2023 Patient encounter procedure [facility] Work Phone: Start: 10-07-2023 End: 10-07-2023 [facility] Start: 10-02-2023 ambulatory [facility] Start: 09-27-2023 Evaluation and management of inpatient [facility] Start: 09-27-2023 Evaluation and management of inpatient [facility] Start: 09-26-2023 Non-patient / Non-visit [facility] Work Phone: Start: 09-26-2023 Evaluation and management of inpatient [facility] Start: 09-26-2023 End: 09-28-2023 Evaluation and management of inpatient [facility] Start: 09-26-2023 Non-patient / Non-visit [facility] Work Phone: Start: 09-25-2023 ambulatory EMEKA NICHOLAS [facility] Start: 09-24-2023 ambulatory [facility] Start: 09-19-2023 ambulatory [facility] Start: 09-09-2023 End: 09-09-2023 ambulatory AB [facility] Start: 08-27-2023 Non-patient / Non-visit [facility] Work Phone: Start: 08-12-2023 End: 08-12-2023 ambulatory [facility] Work Phone: Start: 08-12-2023 End: 08-12-2023 Patient encounter procedure [facility] Work Phone: Start: 07-02-2023 End: 07-02-2023 ambulatory [facility] Work Phone: Start: 07-02-2023 End: 07-02-2023 Patient encounter procedure [facility] Work Phone: Start: 06-24-2023 Non-patient / Non-visit [facility] Work Phone: Start: 06-18-2023 End: 06-18-2023 ambulatory [facility] Work Phone: Start: 06-18-2023 End: 06-18-2023 [facility] Start: 06-13-2023 Non-patient / Non-visit [facility] Work Phone: Start: 05-03-2023 End: 05-03-2023 Patient encounter procedure DO Harley Crespo Work Phone: [facility]- Start: 04-30-2023 End: 04-30-2023 ambulatory Kingsley Latisha Other [facility] Other Start: 04-30-2023 Telephone encounter Kingsley Latisha [facility] Start: 04-23-2023 End: 04-23-2023 ambulatory Tondra Mapus Other [facility] Other Start: 04-23-2023 Telephone encounter Tondra Mapus [facility] Start: 03-12-2023 (DM) Diabetes Tondra Mapus [facility] Start: 03-12-2023 End: 03-12-2023 ambulatory DO Harley Crespo Work Phone: [facility] Other Start: 03-12-2023 End: 03-12-2023 Discharged Recurring DO Harley Crespo Work Phone: [facility] Work Phone: Start: 03-12-2023 End: 03-12-2023 Patient encounter procedure DO Harley Crespo Work Phone: [facility] Work Phone: Start: 02-12-2023 End: 02-12-2023 ambulatory Harley Crespo Other [facility] Other Start: 02-12-2023 Telephone encounter Harley HERRMANN [facility] Start: 02-07-2023 End: 02-07-2023 ambulatory Harley Crespo Other [facility] Other Start: 02-07-2023 Telephone encounter Harley HERRMANN [facility] Start: 02-06-2023 End: 02-06-2023 ambulatory Tondra Mapus Other [facility] Other Start: 02-06-2023 Telephone encounter Tondra Mapus [facility] Start: 01-29-2023 End: 01-29-2023 ambulatory Harley Crespo Other [facility] Other Start: 01-29-2023 Telephone encounter Harley HERRMANN [facility] Start: 01-17-2023 End: 01-17-2023 ambulatory Tondra Mapus Other [facility] Other Start: 01-17-2023 Telephone encounter Tondra Mapus [facility] Start: 01-07-2023 End: 01-07-2023 ambulatory Harley Crespo Other [facility] Other Start: 01-07-2023 Office outpatient vi sit 25 minutes Kingsley Latisha [facility] Start: 01-07-2023 Telephone encounter Harley HERRMANN [facility] Start: 01-04-2023 End: 01-04-2023 ambulatory Kingsley Latisha Other [facility] Other Start: 01-04-2023 Telephone encounter Kingsley Latisha [facility] Start: 01-01-2023 End: 01-01-2023 ambulatory Kingsley Latisha Other [facility] Other Start: 01-01-2023 Telephone encounter Kingsley Latisha [facility] Start: 12-31-2022 End: 12-31-2022 ambulatory Harley Crespo Other [facility] Other Start: 12-31-2022 Office outpatient vi sit 25 minutes Harley Crespo [facility] Start: 12-31-2022 Telephone encounter Harley Crespo FP [facility] Start: 12-13-2022 End: 12-13-2022 ambulatory Denita Chairez Other [facility] Other Start: 12-13-2022 Nursing evaluation o f patient and report Denita Chairez [facility] Start: 11-23-2022 End: 11-23-2022 ambulatory Tondra Mapus Other [facility] Other Start: 11-23-2022 Telephone encounter Tondra Mapus [facility] Start: 10-12-2022 End: 10-12-2022 ambulatory Tondra Mapus Other [facility] Other Start: 10-12-2022 Telephone encounter Arlen Kwong [facility] Start: 10-09-2022 End: 10-09-2022 ambulatory Harley Crespo Other [facility] Other Start: 10-09-2022 Telephone encounter Harley Crespo FP [facility] Start: 10-01-2022 End: 10-01-2022 ambulatory Harley Crespo Other [facility] Other Start: 10-01-2022 Telephone encounter Harley Crespo FP [facility] Start: 09-27-2022 End: 09-27-2022 ambulatory Kingsley Latisha Other [facility] Other Start: 09-27-2022 Telephone encounter Kingsley Latisha [facility] Start: 09-26-2022 End: 09-26-2022 ambulatory Harley Crespo Other [facility] Other Start: 09-26-2022 Telephone encounter Harley HERRMANN [facility] Start: 09-19-2022 End: 09-19-2022 ambulatory Kingsley Latisha Other [facility] Other Start: 09-19-2022 Telephone encounter Kingsley Latisha [facility] Start: 09-12-2022 End: 09-12-2022 ambulatory Harley Crespo Other [facility] Other Start: 09-12-2022 Telephone encounter Harley HERRMANN [facility] Start: 09-03-2022 End: 09-03-2022 ambulatory Harley Crespo Other [facility] Other Start: 09-03-2022 Telephone encounter Harley Crespo [facility] Start: 08-31-2022 End: 08-31-2022 ambulatory Harley Crespo Other [facility] Other Start: 08-31-2022 Office outpatient vi sit 25 minutes Harley Crespo [facility] Start: 08-10-2022 End: 08-10-2022 ambulatory Harley Crespo Other [facility] Other Start: 08-10-2022 Telephone encounter Harley HERRMANN [facility] Start: 08-09-2022 End: 08-10-[address] HARLEY CRESPO [facility] Other Start: 08-09-2022 Telephone encounter Kingsley Latisha [facility] Start: 07-02-2022 End: 07-02-2022 ambulatory Kingsley Latisha Other [facility] Other Start: 07-02-2022 Office outpatient vi sit 25 minutes Kingsley Latisha [facility] Start: 06-28-2022 End: 06-28-2022 ambulatory Harley Crespo Other [facility] Other Start: 06-28-2022 Patient encounter procedure Harley Crespo [facility] Start: 06-26-2022 (DM) Diabetes Tondra Mapus [facility] Start: 06-26-2022 End: 06-26-2022 ambulatory Tondra Mapus Other [facility] Other Start: 06-25-2022 End: 06-26-2022 ambulatory KINGSLEY LATISHA Facility:[facility] Start: 06-18-2022 End: 06-19-2022 ambulatory TONDRA MAPUS Facility:[facility] Start: 06-05-2022 End: 06-06-[address] HARLEY CRESPO Facility:[facility] Start: 05-26-2022 End: 05-26-2022 ambulatory Harley Crespo Other [facility] Other Start: 05-26-2022 Telephone encounter Harley HERRMANN [facility] Start: 05-25-2022 End: 05-25-2022 ambulatory Tondra Mapus Other [facility] Other Start: 05-25-2022 Telephone encounter Tondra Mapus [facility] Start: 05-03-2022 End: 05-04-[address] PINKY BISHOP Facility:[facility] Start: 04-18-2022 End: 04-19-[address] PINKY BISHOP Facility:[facility] Start: 03-22-2022 End: 03-23-[address] HIGINIO FLANAGAN Facility:[facility] Start: 03-20-2022 (DM) Diabetes Tondra Mapus [facility] Start: 03-20-2022 End: 03-20-2022 ambulatory Tondra Mapus Other [facility] Other Start: 03-12-2022 End: 03-13-2022 Evaluation and management of inpatient DR PARUL CHU Facility:[facility] Start: 03-09-2022 End: 03-10-[address] SHANNON LANDIS Facility:[facility] Start: 03-02-2022 End: 03-03-[address] HARLEY CRESPO Facility:[facility] Start: 02-19-2022 End: 02-19-2022 ambulatory Tondra Mapus Other [facility] Other Start: 02-19-2022 Telephone encounter Tondra Mapus [facility] Start: 02-08-2022 End: 02-08-2022 ambulatory Tondra Mapus Other [facility] Other Start: 02-08-2022 Telephone encounter Tondra Mapus [facility] Start: 01-15-2022 End: 01-17-2022 Evaluation and management of inpatient DO Harley Crespo Work Phone: [facility] Start: 01-15-2022 End: 01-15-[address] HARLEY CRESPO Facility:[facility] Start: 12-18-2021 Registered Recurring DO Wilsonsujey francisca Cherie [facility] Start: 12-18-2021 (DM) Diabetes Tondra Mapus [facility] Start: 12-18-2021 End: 12-18-2021 ambulatory Tondra Mapus Other [facility] Other Start: 12-08-2021 End: 12-09-[address] HARLEY CRESPO Facility:[facility] Start: 11-30-2021 End: 12-01-2021 ambulatory KINGSLEY GOOD Facility:[facility] Start: 11-24-2021 End: 11-25-[address] HARLEY CRESPO Facility:[facility] Start: 11-16-2021 End: 11-16-2021 ambulatory Tondra Mapus Other [facility] Other Start: 11-16-2021 Telephone encounter Tondra Mapus [facility] Start: 2021 End: 2021 ambulatory Tondra Mapus Other [facility] Other Start: 2021 Telephone encounter Tondra Mapus [facility] Start: 10-31-2021 End: 10-31-2021 ambulatory Tondra Mapus Other [facility] Other Start: 10-31-2021 Telephone encounter Tondra Mapus [facility] Start: 10-27-2021 End: 10-27-[address] HARLEY CRESPO Facility:[facility] Start: 10-20-2021 Telephone encounter Abdon martins MD Work Phone: Hematology/Oncology Comment on above: Lab Orders Start: 10-03-2021 End: 10-04-[address] GAGAN DAVID . Facility:[facility] Start: 09-29-2021 End: 09-29-2021 Patient encounter procedure Gagan DAVID General Surgery [facility] [place] Start: 09-04-2021 End: 09-05-[address] HARLEY CRESPO Facility:[facility] Start: 08-26-2021 End: 08-27-[address] HARLEY CRESPO Facility:[facility] Start: 07-24-2021 End: 07-24-2021 ambulatory Tondra Mapus Other [facility] Other Start: 07-24-2021 Telephone encounter Tondra Mapus [facility] Start: 07-17-2021 (DM) Diabetes Tondra Mapus [facility] Start: 07-17-2021 End: 07-17-2021 ambulatory Tondra Mapus Other [facility] Other Start: 06-19-2021 End: 06-19-2021 ambulatory Shannon Escobar Other [facility] Other Start: 06-19-2021 Telephone encounter Shannon Escobar [facility] Start: 06-06-2021 End: 06-06-2021 ambulatory Kingsley Latisha Other [facility] Other Start: 06-06-2021 Office outpatient vi sit 25 minutes Kingsley Latisha [facility] Start: 05-22-2021 End: 05-22-2021 ambulatory Tondra Mapus Other [facility] Other Start: 05-22-2021 Telephone encounter Tondra Mapus [facility] Start: 05-16-2021 End: 05-16-2021 ambulatory Tondra Mapus Other [facility] Other Start: 05-16-2021 Telephone encounter Tondra Mapus [facility] Start: 04-10-2021 (DM) Diabetes Tondra Mapus [facility] Start: 04-10-2021 End: 04-10-2021 ambulatory Tondra Desireeus Other [facility] Other Start: 04-10-2021 Telephone encounter Tondra Mapus [facility] Start: 02-14-2021 End: 02-14-2021 ambulatory Kingsley Latisha Other [facility] Other Start: 02-14-2021 Patient encounter procedure Kingsley Latisha [facility] Start: 02-14-2021 Telephone encounter Kahlila Varghese [facility] [facility] Start: 01-03-2021 (DM) Diabetes Tondra Varghese [facility] Start: 10-14-2018 End: 10-15-2018 Patient encounter procedure [facility] Facility:[facility] Start: 02-24-2018 End: 02-25-2018 Evaluation and management of inpatient [facility] Facility:[facility] Procedures Date Procedure Procedure Detail Performing Clinician Start: 03-11-2022 Assistance with Respiratory Ventilation, Less than 24 Consecutive Hours, Continuous Positive Airway Pressure [facility] Start: 01-16-2022 CL LHC & COR Angio w/grafts DO Harley Crespo Work Phone: Start: 01-16-2022 DO Harley Crespo Work Phone: Start: 07-10-2021 Colonoscopy Kenneth Tavera DPM Work Phone: Start: 07-10-2021 Colonoscopy Gagan DAVID Start: 07-10-2021 Esophagogastroduodenoscopy Gagan DAVID Start: 07-13-2020 Percutaneous coronary intervention Smith leandra DAVID Comment on above: stent LAD Start: [...] Start: 04-01-2012 Percutaneous transluminal coronary angioplasty Gagan FRANKIE Start: 04-01-2009 Cardiac catheterization Gagan FRANKIE Start: 04-01-2007 Percutaneous transluminal coronary angioplasty Gagan MORGANDarling Start: 04-01-2004 Cardiac catheterization Gagan MORGANDarling Start: 04-01-2002 Cardiac catheterization Gagan MORGANDarling Start: 04-01-1991 Coronary artery bypass graft Gagan Hastings History of placement of stent for coronary artery disease Jason LARKIN Pacemaker care management Jaron LARKIN Percutaneous coronary intervention Gagan DAVID Comment on above: stent/vein graft Plan of Treatment Date Care Activity Detail Author Start: 07-11-2031 Screening for malign ant neoplasm of colon [facility] Start: 08-27-2024 Urine culture [facility] Start: 07-27-2024 Patient referral [facility] Work Phone: Start: 07-14-2024 Patient referral [facility] Work Phone: Start: 07-07-2024 Urine culture [facility] Start: 06-11-2024 End: 06-11-2024 Patient encounter procedure 06/11/2024 11:50 AM EDT Office Visit [facility] [address] [facility] [address] [place] [address] Kenneth Tavera DPM [address] [address] [facility] Start: 04-02-2024 End: 04-02-2024 Patient encounter procedure [facility] Comment on above: 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, without long-term current use of insulin (CMS/HCC) (Primary Dx); Pain due to onychomycosis of toenails of both feet Start: 01-23-2024 End: 01-23-2024 Patient encounter procedure 01/23/2024 11:30 AM EDT Office Visit [facility] [address] [id number] Kenneth Tavera DPM [address] [address] Diabetes mellitus due to underlying condition with [...] feet Start: 10-26-2023 DIABETES SCREEN [facility]ETES SCREEN [facility] Start: 10-17-2023 Patient referral [facility] Work Phone: Start: 08-16-2023 Screening for malign ant neoplasm of colon FIT-DNA [facility] Start: 01-17-2022 [facility] Start: 01-17-2022 Radionuclide myocard ial perfusion stress study NM rachel perf SPECT rest & str [facility] Start: 01-17-2022 Referral to cardiac rehabilitation program [facility] Start: 01-16-2022 Hospital admission [facility] Start: 01-15-2022 Hospital admission [facility] Start: 11-30-2021 Influenza vaccination INFLUENZA (#1) [facility] Start: 10-24-2021 End: 12-24-2021 CBC W Auto Differential panel - Blood CBC + DIFF Lab Routine Monoclonal gammopathy Expected: 10/24/2021, Expires: 12/24/2021 [facility] Work Phone: Comment on above: Expected: 10/24/2021 , Expires: 12/24/2021 Start: 04-25-2021 Adult depression screening assessment DEPRESSION SCREENING [facility] Start: 04-01-2021 ADVANCE DIRECTIVE DISCUSSION ADVANCE DIRECTIVE DISCUSSION [facility] Start: 11-21-2020 COVID-19 VACCINE (3 - Booster for Pfizer series) COVID-19 VACCINE (3 - Booster for Pfizer series) [facility] Start: 11-07-2001 SHINGRIX VACCINE (1 of 2) SHINGRIX VACCINE (1 of 2) [facility] Start: 11-07-1996 COLOGUARD (FIT-DNA) COLOGUARD (FIT-D NA) [facility] Start: 11-07-1996 Colonoscopy COLONOSCOPY [facility] Start: 11-07-1996 COLORECTAL CANCER SCREENING COLORECTAL CANCER SCREENING [facility] Start: 11-07-[address] COLONOGRAPHY [facility] Start: 11-07-1996 FECAL OCCULT BLOOD FECAL OCCULT BLOO D [facility] Start: 11-07-1996 SIGMOIDOSCOPY SIGMOIDOSCOPY [facility] Start: 11-07-1986 LIPID SCREEN LIPID SCREEN [facility] Start: 11-07-1970 Urine microalbumin profile DTAP,TDAP,TD (1 - Tdap) [facility] Start: 11-07-1969 HEPATITIS C SCREENING HEPATITIS C SC APURVA [facility] Start: 1950 ABDOMINAL AORTIC ANEURYSM SCREENING ABDOMINAL AORTIC ANEURYSM SCREENING [facility] Start: 1950 Screening for malign ant neoplasm of colon [facility] Comprehensive metabo lic 1999 panel - Serum or Plasma [facility] Comprehensive metabo lic 2000 panel - Serum or Plasma [facility] CT Abdomen and Pelvi s WO contrast [facility] CT Abdomen and Pelvi s WO contrast [facility] Patient Education [facility] Work Phone: Patient referral [place] Work Phone: Renal function 1999 panel - Serum or Plasma [facility] Renal function 1999 panel - Serum or Plasma [facility] Renal function 1999 panel - Serum or Plasma [facility] Urine culture [facility] Immunizations Immunization Date Immunization Notes Care Provider Poli patel 12-12-2023 influenza virus vaccine, unspecified formulation Jason CHAYA [facility] 12-12-2023 influenza, high dose seasonal, preservative-free [facility] 12-13-2022 influenza, high dose seasonal, preservative-free Denita Chairez Other [employer] [facility] Other 12-13-2022 influenza virus vaccine, unspecified formulation DO Harely Crespo Work Phone: [facility] 12-15-2021 influenza virus vaccine, unspecified formulation DO Harley Crespo Work Phone: [facility] 12-15-2021 influenza, high dose seasonal, preservative-free Harley Crespo Other [employer] [facility] Other 02-21-2021 COVID-19 mRNA, Comirnaty (Pfizer) DO Harley Ball Work Phone: [facility] 06-21-2020 COVID-19 Vaccine Pfi zer - Documentation Purposes Only Tondra Mapus Other [facility] 05-30-2020 COVID-19 Vaccine Pfi zer - Documentation Purposes Only Tondra Mapus Other [facility] 01-17-2018 influenza virus vaccine, unspecified formulation Jason LARKIN [facility] 01-17-2018 pneumococcal polysaccharide vaccine, 23 valent Abdon Walker MD Work Phone: [facility] 01-17-2018 Seasonal trivalent influenza vaccine, adjuvanted, preservative free Abdon Walker MD Work Phone: [facility] 01-16-2017 influenza virus vaccine, unspecified formulation Jason LARKIN [facility] 01-16-2017 influenza, high dose seasonal, preservative-free Abdon Walker MD Work Phone: [facility] 11-30-2016 influenza virus vaccine, unspecified formulation Jason LARKIN [facility] 11-30-2016 influenza, injectabl e, quadrivalent, preservative free Abdon Walker MD Work Phone: [facility] 11-14-2016 pneumococcal conjuga te vaccine, 13 valent Abdon Walker MD Work Phone: [facility] 04-02-2016 pneumococcal polysaccharide vaccine, 23 valent Tondra Mapus Other [facility] 01-23-2012 influenza virus vaccine, unspecified formulation Jason LARKIN [facility] 01-23-2012 influenza, seasonal, injectable Abdon Walker MD Work Phone: [facility] 12-13-2010 influenza virus vaccine, unspecified formulation Jason LARKIN [facility] 12-13-2010 influenza, seasonal, injectable Abdon Walker MD Work Phone: [facility] 01-27-2009 novel [id number], preservative-free, injectable Abdon Walker MD Work Phone: [facility] 01-19-2008 influenza virus vaccine, whole virus Abdon Walker MD Work Phone: [facility] 01-19-2008 influenza, whole Jason EZ HERNANDES [facility] Payers Date Payer Category Payer Self-pay [id number] 2021 Unknown [id number] 2021 Private Health Insurance [employer] [id number] 2019 Unknown MMO MMO MEDICARE SUPPLEMENT [id number] 2019-Present [phone] [address] [place] [address] Indemnity [id number]. [id number] 2016 Medicare MEDICARE MEDICAR E A AND B [id number] 2016-Present [phone] [address] [address] [place] [address] Medicare [id number]. [id number] 2016 Medicare [id number] [id number]. [id number] 1959 Medicare [id number] 1959 Unknown [id number] 2.16.840.1.167978.19 1951 Unknown [id number] 2.16.840.1.002362.3.579.2. 647 1951 Unknown [id number] 2.16.840.1.889844.3.579.2. 647 1951 Unknown [id number] 2.16.840.1.657827.3.579.2. 593 1951 Unknown [id number] 2.16.840.1.798338.3.579.2. 593 1951 Unknown [id number] 2.16.840.1.668758.3.579.2. 593 1951 Unknown [id number] 2.840.1.259802.3.579.2. 593 1951 Unknown [id number] 2.16.840.1.519632.3.579.2. 593 1951 Unknown [id number] 2.16.840.1.620208.3.579.2. 593 1951 Unknown [id number] 2.16.840.1.533174.3.579.2. 593 1951 Unknown [id number] 2.16840.1.476761.3.579.2. 593 1951 Unknown [id number] 2.16.840.1.093832.3.579.2. 593 1951 Unknown [id number] 2.16.840.1.924345.3.579.2. 593 1951 Unknown [id number] 2.16.840.1.869546.3.579.2. 593 1951 Unknown [id number] 2.16.840.1.322837.3.579.2. 593 1951 Unknown [id number] 2.16.840.1.246317.3.579.2. 593 1951 Unknown [id number] 2.16.840.1.121126.3.579.2. 593 1951 Unknown [id number] 2.16.840.1.654435.3.579.2. 593 1951 Unknown [id number] 2.16.840.1.819616.3.579.2. 593 1951 Unknown [id number] 2.16.840.1.883581.3.579.2. 593 1951 Unknown [id number] 2.16.840.1.952701.3.579.2. 593 1951 Unknown [id number] 2.16.840.1.209178.3.579.2. 1259 1951 Unknown [id number] 2.16.840.1.637045.3.579.2. 1259 1951 Unknown [id number] 2.16.840.1.101615.3.579.2. 1259 1951 Unknown [id number] 2.16.840.1.996971.3.579.2. 1259 1951 Unknown [id number] 2.16.840.1.298336.3.579.2. 727 1951 Unknown [id number] 2.16.840.1.292696.3.579.2. 727 1951 Unknown [id number] 2.16.840.1.205252.3.579.2. 727 Unknown [id number] Unknown HCAP/HFA/FAP Active [id number] Unknown HCAP/HFA/FAP Active [id number] Unknown [id number] 2.16.840.1.378817.3.579.2. 531 Unknown [id number] 2.16.840.1.429869.3.579.2. 531 Unknown [id number] 2.16.840.1.329675.3.579.2. 531 Social History Date Type Detail Facility Unknown if ever smoked [employer] Other Start: 11-07-2023 End: 01-23-2024 Sex Assigned At [employer] Other Start: 09-29-2021 End: 05-28-2024 Tobacco smoking status Ex-smoker (finding) [facility] [place] Tobacco smoking status Never [facility] Nrique Start: 07-23-2018 End: 10-12-2022 Tobacco use and exposure Smokeless tobacco non-user [facility] Start: 10-25-2020 Alcohol intake Ex-drinker (finding) [facility] Start: 1950 Sex Assigned At Not on file C [facility] Start: 1950 Sex Assigned At Male F [facility] Start: 10-12-2022 [facility] Start: 11-07-2023 End: 04-02-2024 Alcoholic beverage intake Defer [facility] Start: 11-07-2023 End: 01-23-2024 History of Social function [facility] Start: 04-30-2024 End: 08-28-2024 Sex Male (finding) [facility] Sexual Orientation [facility] Medical Equipment Procedure Code Equipment [...] Ultra-Fine Latoya Pen Needle) 32 gauge x /32 needle Start: 11-21-2023 Goals Date Patient Goal Desired Activity /State Functional Status Date Assessment Result Facility 08-04-2024 Functional Status N/A [facility] 01-17-2022 Functional status Patient at Baseline [facility] Work Phone: 09-29-2021 Functional Status N/A [facility] [place] Mental Status Date Assessment Result Facility 01-17-2022 Cognitive function Cognitive Sta tus Patient at Baseline [facility] Work Phone: Clinical Notes 01-03-2021 to 08-28-2024 Note Date & Type Note Facility 08-28-2024 Note [facility] Department of Urology Clinic CONSULTATION Reason for visit: Bladder mass History of Present Illness: Lani Lizama is a 73 y.o. male with significant cardiac history including CAD status post CABG x 5, PCI to SVG-PDA on 08/2023, HFrEF with EF to 15 to 20% status post biventricular ICD, peripheral vascular disease, carotid artery stenosis, third-degree heart block status post implantable pacemaker placement, CKD. Patient had gross hematuria without significant pain. He was therefore referred to [facility] where he underwent a cystoscopy with cytology and biopsy of bladder wall lesion. CT abdomen pelvis from outside also demonstrates posterior approximately 2 x 2 x 2 cm mass of the posterior bladder wall. Patient endorses ongoing intermittent hematuria without symptoms. No obstructive voiding. Unfortunately we do not have access to the actual CT images or the pathology reports at this time. No family history of soft tissue malignancy. Patient does have a father with history of lymphoma. No first-degree relatives with any breast, colon, ovarian, pancreatic, prostate cancers. Unable to see any PSA results Review of Systems Denies fevers chills nausea vomiting chest pain shortness of breath weakness numbness tingling dysuria Endorses intermittent hematuria Past Medical History: Diagnosis Date Carotid artery stenosis Coronary artery disease Diabetes mellitus (CMS/HCC) Hyperlipidemia Hypertension PVD (peripheral vascular disease) Third degree heart block (CMS/HCC) Past Surgical History: Procedure Laterality Date CARDIAC CATHETERIZATION 07/12/2020 CARDIAC CATHETERIZATION 10/15/2018 CARDIAC CATHETERIZATION 02/24/2018 CARDIAC CATHETERIZATION 09/27/2015 CORONARY ARTERY BYPASS GRAFT CORONARY STENT PLACEMENT No Known Allergies Current Outpatient Medications: levoFLOXacin (Levaquin) 250 mg tablet, , Disp: , Rfl: ALPRAZolam (Xanax) 0.5 mg tablet, Take 1 [...] mouth every other day., Disp: , Rfl: Social History Socioeconomic History Marital status: Spouse name: Not on file Number of children: Not on file Years of education: Not on file Highest education level: Not on file Occupational History Not on file Tobacco Use Smoking status: Former Types: Cigarettes Smokeless tobacco: Never Substance and Sexual Activity Alcohol use: Never Drug use: Never Sexual activity: Defer Other Topics Concern Not on file Social [...] Year: Not on file Transportation Needs: No Tr (more content not included)... [facility] 08-20-2024 Note [facility] Cardiology Clinic Note Chief Complaint: Patient here for follow up [facility] for an ID and bladder surgery clearance. Patient states he [...] mildly elevated troponin. Patient was transferred to [facility] for further evaluation and treatment. [...] , Rfl: isosor (more content not included)... [facility] 08-14-2024 Note Hospital Medicine Discharge Summary Final [...] mildly elevated troponin. Patient was transferred to [facility] for further evaluation and treatment. [...] Center 08/20/2024 9:45 AM Pinky Bishop MD [facility] 08/28/2024 8:30 AM Last Mcmanus MD [facility] URO Second Fl Your medication [...] Medications These medications were sent to [facility] - [place], [place] - [address] [place] [address], [facility] [place] [address] amLODIPine 5 mg tablet Lani has No Known Allergies. Disposition: Home or Self Care () Discharge Condition: Stable Code Status: Prior Diagnostic Results Hematology: Results from last 7 days Lab Units 08/13/24 1421 WBC AUTO 10*3/uL 7.62 HEMOGLOBIN g/dL 13.1 HEMATOCRIT % 39.8 MCV fL 89.0 PLATELETS AUTO 10*3/uL 201 Chemistry: Results from last 7 days Lab Units (more content not included)... [facility] 08-14-2024 Note Adult Nutrition Asse ssment: Name: [...] of Nutrition and Dietetics (AND) and the [place] Society of Enteral and Parenteral Nutrition (ASPEN). [...] difference between simp (more content not included)... [facility] 08-14-2024 Note 08/14/24 1204 Admission Assessment Questions [...] Status Interested Does the patient have a welfare case worker assigned to them through their insurance? No [...] to send link and activate MyChart? No [facility] 08-14-2024 Note Attestation signed by Tatianna Hayward MD at 08/14/2024 5:03 PM (Updated) Mr. [...] see Dr. Bishop, do cardiac rehab at [place] and if he has uncontrolled chest pain [...] 10 millicurie, intravenous, Once in imaging, Devante Leon MD, 10 millicurie at 08/14/24 0828 kit [...] 08/13/24 1551 135/71 36.6 ???C (97.9 ???F) Temporal 82 15 -- -- -- 08/13/24 [...] edema. Left lower (more content not included)... [facility] 08-13-2024 Note Recent cystoscopy [facility]ien [facility] CODE STATUS full code [facility] 08-13-2024 Note On antiplatelet agen t watch for hematuria and follow [facility] 08-13-2024 Note As above [facility] 08-13-2024 Note [facility]ulin blood [facility] Note Avoid hypovolemia an d nephrotoxic meds hold lisinopril since patient on Aldactone watch potassium electrolyte creatinine renal function consider nephrology consult [facility] 08-13-2024 Note Decongestive breath/ guideline directed medical therapy limited because of renal function watch creatinine electrolytes especially potassium intake and output [facility] 08-13-2024 Note Chest pain-free, cyc le troponin telemetry continue statin aspirin nitrates beta-jason watch for hypotension and bradycardia cardiology to see patient [facility] 08-13-2024 Note Hospital Medicine History and Physical 08/13/2024 1:16 PM THE HOSPITALIST TEAM PREFERS TO USE [employer] CHAT FOR NON-URGENT COMMUNICATION 7AM-7PM. IF I DO NOT RESPOND WITHIN 20 MINUTES OR URGENT MATTERS, PLEASE CALL THROUGH THE AUDOGRAPH OPERATOR. FROM 7PM-7AM, PLEASE PAGE [phone](COVR). Chief Complaint No chief complaint on file. History of Present Illness Lani Lizama is an 73 y.o. male 73 years old white male transferred from [facility] with intermittent chest pain anterior chest radiating [...] basal and postprandial insulin. His labs from [facility] reveals patient having chronic kidney disease stage [...] HFrEF (heart failure with reduced ejection fraction) ([facility]) Decongestive breath/guideline directed medical therapy limited because of renal function watch creatinine electrolytes especially potassium intake and output Coronary artery disease involving [place] coronary artery of [place] heart As above Chronic kidney disease Avoid hypovolemia and nephrotoxic meds hold lisinopril since patient on Aldactone watch potassium electrolyte creatinine renal function consider nephrology consult Type 2 diabetes mellitus without complication, with long-term current use of insulin ([facility]) Insulin blood sugar check diet Angina at rest As above Gross hematuria On antiplatelet agent watch for hematuria and follow Bladder cancer ([facility]) Recent cystoscopy follows urology CODE STATUS full code VTE Prophylaxis: Heparin subcutaneous watch for bleed ----- Focus of this inpatient stay will remain on problems that need acute care setting for care. We will review available studies and will order additional labs, imaging and other studies as appropriate. As need (more content not included)... [facility] 08-04-2024 Hospital Discharge instructions Patient Education 08/04/2024 [...] Up Care 08/03/2024 14:29:05 With:Jason LARKIN Address: [address] [place] [address] Business (1) When: Unknown Comments:Office will call to schedule follow up [facility] 08-04-2024 Note Patient Education Custom Cystoscopy ??? [...] you have a fever over 100 degrees. [facility] 08-03-2024 Note Patient Education Urology [...] including vitamins, herbs, eye drops, creams, and iwde-aac-prrqjgb medicines. ??? Any problems you or family [...] tells you to take them. ??? Taking wgik-yes-ssnciuj medicines, vitamins, herbs, and supplements. Tests You [...] these instructions at home: Medicines ??? Take mctm-lsw-kaivvpq and prescription medicines only as told by [...] (biopsy) during your (more content not included)... [facility] 07-14-2024 Evaluation note Diagnosis Onset [...] HLD (hyperlipidemia) deleted August 03, 2024 9:17am [facility] Work Phone: 1(600) 444-574504-15-2025 Evaluation note* Diagnosis Onset Date Resolution Status [...] kidney disease acute July 27, 2024 11:19am Dietary counseling and surveillance acute August 03, 2024 9:17am HTN (hypertension) acute July 9:17am BMI 31.0-31.9,adult deleted August 032024 9:17am DM2 (diabetes mellitus, type 2) indio soraya August 03, 2024 9:17am HLD (hyperlipidemia) deleted August 03, 2024 9:17am Scab deleted August 03, 2024 9:17am Chronic HFrEF (heart failure with reduced ejection fraction) acute July 312024 11:31am Chronic kidney disease acute Ma y 2024 11:31am HTN (hypertension) acute August 252024 11:31am Hypercholesterolemia acute August 25, 2024 11:31am Ischemic cardiomyopathy acute M ay 2024 11:31am Polyuria acute August 25, 2024 11:31am Pulmonary nodule acute July 11:31am Type 2 diabetes mellitus wit h diabetic peripheral angiopathy without gangrene acute August 25, 2024 11:31am Type 2 diabetes mellitus wit h hyperglycemia acute August 25, 2024 11:31am Type 2 diabetes mellitus wit h severe nonproliferative diabetic retinopathy acute August 25, 2024 11:31am [facility] Work Phone: 1(271) 926-548801-30-2025 Evaluation note* Diagnosis Onset Date Resolution Status [...] h hyperglycemia acute July 27, 2024 11:19am [facility] Work Phone: 1(950) 864-985801-16-2025 Evaluation note* Diagnosis Onset Date Resolution Status Admit Date Chronic HFrEF (heart failure with reduced ejection fraction) acute ry 2024 8:19am Chronic kidney disease acute Ja nuary 2024 8:19am HTN (hypertension) acute 2024 8:19am Hypercholesterolemia acute Desean lee ann2024 [...] 2024 9:21am HLD (hyperlipidemia) deleted 2024 9:21am [facility] Work Phone: 1(212) 769-464801-16-2025 Evaluation note* Diagnosis Onset Date Resolution Status Admit Date Chronic HFrEF (heart failure with reduced ejection fraction) acute 2024 8:19am Chronic kidney disease acute [facility] 2024 8:19am HTN (hypertension) acute 2024 8:19am [...] kidney disease acute July 14, 2024 9:36am [facility] Work Phone: 1(465) 361-962701-02-2025 History of Present illness Narrative* Kenneth Tavera, [...] retinopathy (CMS/HCC) HTN (hypertension) (CMS/HCC) Hypercholesteremia (CMS/HCC) ID (myocardial infarction) (CMS/HCC) 2021 Two total: 02/20, [...] in the morning., Disp: , Rfl: HYDROcodone-acetaminophen (Rugby) 5-325 MG tablet, TAKE 1 TABLET BY [...] Strain: Low Risk (02/13/2024) Received from [facility] Overall Financial Resource Strain (CARDIA) Difficulty of Paying Living Expenses: Not very hard Food Insecurity: No Food Insecurity (02/13/2024) Received from [facility] Hunger Vital Sign Within the past 12 months, you worried that your food would run out before you got the money to buymore.: Never true Ran Out of Food in the Last Year: Not on file Transportation Needs: No Transportation Needs (02/13/2024) Received from [facility] Transportation In the past 12 months, has lack of transportation kept you from medical appointments or from getting medications?: No Lack of Transportation (Non-Medical): Not on file Physical Activity: Not on file Stress: Not on file Social Connections: Not on file Intimate Partner Violence: Unknown (02/13/2024) Received from [facility] Humiliation, Afraid, Rape, and Kick questionnaire Fear of Current or Ex-Partner: No Emotionally Abused: Not on file Physically Abused: Not on file Sexually Abused: Not on file Housing Stability: Low Risk (02/13/2024) Received from [facility] Housing Stability Vital Sign In the last 12 months, was there a time when you were not able to pay the mortgage or rent on time?: No Number of Times Moved in the Last Year: Not on file At any time in the past 12 months, were you homeless or living in a jail (including now)?: No ROS: General: denies fever, [...] and negative PT pedal pulses NEURO: 5.07 Logan Chun monofilament test diminished to digits and forefoot bilaterally 125Hz tuning fork diminished to 1st MPJ bilaterally ORTHO: Positive pain on palpation to nails 1 through 10 ASSESSMENT 1. Diabetes 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, without long-term current use of insulin ([facility]) 2. Pain due to onychomycosis of toenails [...] Kenneth Tavera DPM documented in this encounterChristian [id number] NoteUT Cardiology Consult Note Reason for visit: Complete heart block on event monitor, HFrEF 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%, atrial tachycardia 03/10/24 Patient here for 5 mo follow up bradycardia, complete heart block s/p PPM per Dr. Bishop. He was also admitted to [facility] for NSTEMI last month. Underwent heart cath with Dr. Pena on 02/12. He was started on Ranexa and lisinopril was stopped. Denies chest pain, SOB, and palpitations. Gets lightheaded at times, but no syncopal episodes. 05/07/23 Patient is s/p BiV ICD. he feels much better and believes that he is gone from 4/0 to 7/10 with WELFARE PROJECT MANAGER. patient has got good device threshold. [...] and hypertension. He was recently admitted to [facility] for NSTEMI. Had inpatient stress test and heart cath. Denies SOB but still having chest pain and has taken nitroglycerin a few times for relief. Had CT chest last week s/p discharge. Cardiac catheterization revealed patent bypass grafts and worsening [place] vessel disease. Medications were adjusted. I had [...] Use: Not At Risk (03/13/2018) Received from [facility], [facility] AUDIT-C Frequency of Alcohol Consumption: Never Average [...] Abused: Not on f (more content not included)...[facility]11-25-2024 Evaluation note* Diagnosis Onset Date Resolution Status Admit Date Chronic HFrEF (heart failure with reduced ejection fraction) acute Novem 2023 9:29am Chronic kidney disease acute No [...] 2024 9:21am HLD (hyperlipidemia) deleted 2024 9:21am [facility] Work Phone: 1(278) 737-420911-15-2024 NoteHospital Medicine Discharge Summary Final Discharge Diagnosis: NSTEMI CAD s/p CABG, PCI 08/2023 Chronic heart failure with reduced ejection fraction, NYHA class II Insulin-dependent type 2 diabetes mellitus Chronic kidney disease stage III A Third degree AV block with AICD/pacemaker Essential hypertension Carotid stenosis Hyperlipidemia Peripheral vascular disease Admission Diagnosis: NSTEMI (non-ST elevated myocardial infarction) ([facility]) [I21.4] Hospital course: Lani Lizama is an 73 y.o. male who came from Transferred from [facility] with NSTEMI with NSTEMI. 71-year-old gentleman [...] procedure on that. Patient was transferred from [facility] to [facility] where he was seen for chest pain that has been going on for most of the day causing him to take nitroglycerin on 5 separate incidences and with intensification of the chest pain at shortening intervals that caused him to call the ambulance. At [facility] workup did show that patient had rising troponins initial 1 was 23 and then 85 isa intensity troponin. There was no mention change on the EKG as was reported to me by the ER physician Dr. Lagos at [facility]. Other workup that was done at [facility] included basic metabolic panel that showed [...] history as above. The ER physician from [facility] had spoken to our perch machine inspector here who accepted the patient for transfer to [facility] for possible trip to the [place] [facility] very early this morning depending on the [...] Center 03/10/2024 10:45 AM Kevin Arteaga MD [facility] Your medication list START taking these [...] 40 mg tablet Commonly (more content not included)...[facility] - 02/13/2024 8:36 AM; Room: [address] [place] [address] Admission: 02/13/2024 2:53 AM; Length of stay: 0 days THE HOSPITALIST TEAM PREFERS TO USE [employer] CHAT FOR COMMUNICATION 7AM-7PM. IF I DO NOT RESPOND WITHIN 15 MINUTES, PLEASE PAGE ME/CALL THROUGH THE AUDOGRAPH OPERATOR. FROM 7PM-7AM, PLEASE PAGE [phone](COVR) Code Status: Full Code Barriers to Discharge: NSTEMI Expected Discharge Date: 2-3 days Discharge Destination: home Overview Patient is seen for evaluation and management of chest pain. Subjective Patient was examined at bedside resting comfortably. He presented overnight to ED after transfer from [place]. He states that he had crushing chest [...] Principal Problem: NSTEMI (non-ST elevated myocardial infarction) ([facility]) Active Problems: Coronary atherosclerosis Essential hypertension History of coronary artery bypass surgery Mixed hyperlipidemia Stage 3 chronic kidney disease ([facility]/HCC) Chest pain Type 2 diabetes mellitus with hyperglycemia ([facility]/HCC) PVD (peripheral vascular disease) ([facility]) Carotid stenosis, asymptomatic Assessment and Plan Lani Lizama is a 73 year old male with a past medical history of CAD with 9 stents, 5 vessel CABG, HTN, HLD, DM2, third degree AV block with pacemaker/AICD presented as a transfer from [place] ED with worsening crushing, radiating chest pain. Patient is being admitted to [facility] and cardiology has been consulted. [...] subcutaneous, Nightly isosorbide mononitra (more content not included)...[facility]11-14-2024 NoteHospital Medicine History and Physical 02/13/2024 3:40 AM THE HOSPITALIST TEAM PREFERS TO USE [employer] FOR NON-URGENT COMMUNICATION 7AM-7PM. IF I DO NOT RESPOND WITHIN 20 MINUTES OR URGENT MATTERS, PLEASE CALL THROUGH THE AUDOGRAPH OPERATOR. FROM 7PM-7AM, PLEASE PAGE [phone](COVR). Chief Complaint No chief complaint on file. History of Present Illness Lani Lizama is an 73 y.o. male who came from Transferred from [facility] with NSTEMI with NSTEMI. 71-year-old gentleman [...] procedure on that. Patient was transferred from [facility] to [facility] where he was seen for chest pain that has been going on for most of the day causing him to take nitroglycerin on 5 separate incidences and with intensification of the chest pain at shortening intervals that caused him to call the ambulance. At [facility] workup did show that patient had rising troponins initial 1 was 23 and then 85 isa intensity troponin. There was no mention change on the EKG as was reported to me by the ER physician Dr. Lagos at [facility]. Other workup that was done at [facility] included basic metabolic panel that showed [...] history as above. The ER physician from [facility] had spoken to our perch machine inspector here who accepted the patient for transfer to [facility] for possible trip to the [facility] [employer] very early this morning depending on the [...] Principal Problem: NSTEMI (non-ST elevated myocardial infarction) ([facility]) Active Problems: Coronary atherosclerosis Essential hypertension History of coronary artery bypass surgery Mixed hyperlipidemia Stage 3 chronic kidney disease ([facility]/HCC) Chest pain Type 2 diabetes mellitus with hyperglycemia ([facility]/HCC) PVD (peripheral vascular disease) ([facility]) Carotid stenosis, asymptomatic Assessment and Plan PLAN OF CARE: 71-year-old gentleman with very profuse history of cardiovascular disease including prior CAD with stents and CABG as well as hypertension and HLD comes seen with acute NSTEMI. Patient is being admitted to [facility] and cardiology has been consulted with possible trip to the [facility] at the earliest possible time by cardiology. [...] be -Consult cardiology (done) (more content not included)...[facility]10-24-2024 History of Present illness Narrative* [...] has only been using prescribed or recommended egkd-pvd-qedhewn cream with some improvement. Patient also has longstanding history of multiple MIs and cardiac history Allergies: Allergies Allergen Reactions Other Other Reaction(s): Unknown Received name: Nkda Past Medical History: Past Medical History: Diagnosis Date Diabetic retinopathy (CMS/HCC) HTN (hypertension) (CMS/HCC) Hypercholesteremia (CMS/HCC) ID (myocardial infarction) ([facility]) 2021 Two total: 02/20, 03/22 Type 1 [...] in the morning., Disp: , Rfl: HYDROcodone-acetaminophen (Rugby) 5-325 MG tablet, TAKE 1 TABLET BY [...] Strain: Low Risk (09/26/2023) Received from [facility] Overall Financial Resource Strain (CARDIA) Difficulty of Paying Living Expenses: Not very hard Food Insecurity: No Food Insecurity (09/26/2023) Received from [facility] Hunger Vital Sign Within the past 12 months, you worried that your food would run out before you got the money to buymore.: Never true Ran Out of Food in the Last Year: Not on file Transportation Needs: No Transportation Needs (09/26/2023) Received from [facility] Transportation In the past 12 months, has lack of transportation kept you from medical appointments or from getting medications?: No Lack of Transportation (Non-Medical): Not on file Physical Activity: Not on file Stress: Not on file Social Connections: Not on file Intimate Partner Violence: Unknown (09/26/2023) Received from [facility] Humiliation, Afraid, Rape, and Kick questionnaire Fear of Current or Ex-Partner: No Emotionally Abused: Not on file Physically Abused: Not on file Sexually Abused: Not on file Housing Stability: Low Risk (09/26/2023) Received from [facility] Housing Stability Vital Sign Unable to Pay [...] and negative PT pedal pulses NEURO: 5.07 Logan Chun monofilament test diminished to digits and forefoot bilaterally 125Hz tuning fork diminished to 1st MPJ bilaterally ORTHO: Positive pain on palpation to nails 1 through 10 ASSESSMENT 1. Diabetes 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, without long-term current use of insulin ([facility]) 2. Pain due to onychomycosis of toenails [...] Kenneth Tavera DPM documented in this encounterChristian [id number] NoteBELLEVUE [facility]IC Cardiology Clinic Note Chief Complaint: Patient here for follow up [facility] for NSTEMI. Underwent PCI on 09/27/[address] Foreman. Says he feels much better s/p intervention. Denies chest pain, SOB, palpitations, and lightheadedness/syncope. HPI: Lani Lizama is a 72 y.o. male Hospital Medicine Discharge Summary Final Discharge Diagnosis: #NSTEMI #chronic HFrEF NYHA class I #CAD #HTN #Diabetes #Hx bradycardia Admission Diagnosis: NSTEMI (non-ST elevated myocardial infarction) ([facility]) [I21.4] Hospital course: 72-year-old male with past medical history significant for CAD status post CABG x 5 vessels and history of 7 PCI's who presented to the hospital due to chest pain. The patient does have HFrEF with an EF of 15 to 20% status post BiV WELFARE PROJECT MANAGER-D. Patient reports compliance with his medications and that he is not requiring diuretics. Initial evaluation at the outside hospital showed elevated high-sensitivity troponins and he was sent to [facility] for an evaluation by cardiology. [...] 98% BMI 27.88 kg (more content not included)...[facility]06-29-2024 Note Attestation signed by Kevin [...] Value Ventricular Rate 78 Atrial Rate 78 MT Interval 160 QRS DURATION 144 QT Interval 444 QTC CALCULATION(BAZETT) 506 P [place] 49 R-Potosi -41 T Wave [place] 106 Impression Atrial-sensed ventricular-paced rhythm Abnormal ECG When compared with ECG of 26-SEP-2023 18:59, Vent. rate has decreased BY 3 BPM Lab Results Component Value Date TROPONINI 3.05 (HH) 09/27/2023 Complete Echo (TTE) w/wo Imaging Agent, Strain, 3D, Bubble Study Result Date: 09/27/2023 1 1 [facility] Heart Station [address] [place] [address] [phone] (fax) Echocardiogram-[facility] Name: LANI LIZAMA Study Date: 09/27/2023 07:42 AM B/P: 118 mmHg/57 mmHg (more content not included)...[facility] 09-28-2023 NoteHospital Medicine Discharge Summary Final Discharge Diagnosis: #NSTEMI #chronic HFrEF NYHA class I #CAD #HTN #Diabetes #Hx bradycardia Admission Diagnosis: NSTEMI (non-ST elevated myocardial infarction) ([facility]) [I21.4] Hospital course: 72-year-old male with past medical history significant for CAD status post CABG x 5 vessels and history of 7 PCI's who presented to the hospital due to chest pain. The patient does have HFrEF with an EF of 15 to 20% status post BiV WELFARE PROJECT MANAGER-D. Patient reports compliance with his medications and that he is not requiring diuretics. Initial evaluation at the outside hospital showed elevated high-sensitivity troponins and he was sent to [facility] for an evaluation by cardiology. [...] Heidy Dee MD Hospital Medicine 09/28/2023 11:15 AMMain [facility] Center06-28-2024 NotePatient: Lani Lizama Procedure Information Date/Time: 09/27/23 1300 Procedure: Coronary angiography Location: [facility] DATA ANALYST 3 / [facility] (Cath) Providers: Luisito Foreman [...] discussed with fellow and attending. Additional Equipment RequestsMain Campus Medical Center06-28-2024 Note Adult Nutrition Assessment: Name: Lani Lizama Date: 1950 Date of Visit: 09/27/23 Admission Dx: NSTEMI (non-ST elevated myocardial infarction) (CMS/HCC) [I21.4] Reason for assessment: high risk -wound Information obtained from: patient, family, medical record, and nursing -son at bedside Past Medical History: Diagnosis Date Carotid artery stenosis Coronary artery disease Diabetes mellitus ([facility]) Hyperlipidemia Hypertension PVD (peripheral vascular disease) ([facility]) Third degree heart block ([facility]) CABG x5, stents, EF 30%, HF Current [...] Chips Question: Reason for NPO: Answer: Operation/Procedure 09/26/233 Percent Meals Eaten (%): 100 (09/26/23 1851 : Carolina Bragg RN) Nutrition Risk: Low Malnutrition Assessment: Patient at risk for malnutrition according to hospital criteria, but does not meet the clinical characteristics per the Academy of Nutrition and Dietetics, and the [place] [employer] of Enteral and Parenteral Nutrition to [...] compliance w/ MNT Contact the dietitian via [employer] chat 8A-4P Saturday through Saturday or call extension [phone]. For weekends & holidays, the dietitian can be reached via pager [phone] from 9A-3P. Unable to respond to [employer] chat messages on Saturday & .[facility]06-28-2024 Note Attestation signed by Heidy [...] Progress Note - 09/27/2023 10:26 AM; Room: [address] [place] [address] Admission: 09/26/2023 4:35 PM; Length of stay: 1 days THE HOSPITALIST TEAM PREFERS TO USE [employer] CHAT FOR COMMUNICATION 7AM-7PM. IF I DO NOT RESPOND WITHIN 15 MINUTES, PLEASE PAGE ME/CALL THROUGH THE AUDOGRAPH OPERATOR. FROM 7PM-7AM, PLEASE PAGE [phone](COVR) Code Status: Full Code Barriers to Discharge: [...] disease, 3rd degree heart block (s/p BiV WELFARE PROJECT MANAGER-D) that presented to OSH w/ c/o chest pain that radiated to left arm and jaw. Pain was described as centrally-located and pressure-like, and unrelieved by Nitroglycerin x3. Patient started on nitroglycerin drip which provided relief. Initial tropin was unremarkable, but repeat was elevated (2962). He was started on heparin and transferred to [facility]. Today, patient is examined at [...] Principal Problem: NSTEMI (non-ST elevated myocardial infarction) ([facility]) Assessment and Plan #NSTEMI - Supplemental oxygen NC - DAPT (aspirin 81 mg, daily; and Plavix 75 mg, daily) - Metoprolol Succinate XL (150 mg, daily) - Rosuvastatin (40 mg, nightly) #HFrEF - Echo pending #CAD - Angiogram planned today #HTN #Diabetes - Insulin sliding scale - Goal blood sugar 140-180 #Hx bradycardia - s/p WELFARE PROJECT MANAGER-D Wounds: Wound 09/26/23 Other (comment) Toe (Comment [...] 81 mg, oral, Daily (more content not included)...[facility]06-10-2024 [facility] Note Chief Complaint: [...] artery stenosis, Coronary artery disease, Diabetes mellitus ([facility]), Hyperlipidemia, Hypertension, PVD (peripheral vascular disease) ([facility]), and Third degree heart block ([facility]). Surgical History He has a past surgical [...] PSYCH: appropriate mood, affect, and judgement. Investigations: Echocardiogram-[facility] Name: LANI LIZAMA Study Date: 01/25/2023 12:56 PM B/P: 138 mmHg/71 mmHg HR: Date of : 1950 Location: [facility] Height: 67 in. Age: 72 year(s) Patient Room : 314 Weight: 171 lb. Gender: Male Patient Status: InPt BSA: 1.89 m2 Indication: Chest Pain Examination: Echocardiogram (Complete), Lumason Contrast Image Quality: Poor Patient Consent: Procedure explained to patient s p @ c 3 Conclusions Left Ventricle: The left ventricle is normal size. Global left connie (more content not included)...[facility]01-30-2024 Evaluation note* Encounter Date Diagnosis Assessment Notes Treatment Notes Treatment Clinical Notes Apr, Chronic HFrEF (heart failure with reduced ejection fraction) (ICD-10 - I50.22) [employer] Other 12-12-2023 Evaluation note* Encounter Date Diagnosis [...] age/comorbidities 2. Blood glucose levels according to [employer] cgm download 02/27/2023- 023: Average glucose 134. [...] hypertension material was printed on [employer]. Mar, senior living current use of insulin (ICD-10 - Z79.4) Mar, Hyperlipidemia (ICD-10 - E78.5) High cholesterol material was printed 05/2022 ldl 69- on statin. Mar, BMI 27.0-27.9,adult (ICD-10 - Z68.27) Eating healthy: tips to make it easier material was printed [employer] Other 2023 Evaluation note* Encounter Date Diagnosis Assessment Notes Treatment Notes Treatment Clinical Notes Jan, Chronic HFrEF (heart failure with reduced ejection fraction) (ICD-10 - I50.22) [employer] Other 10-09-2023 Evaluation note* Encounter Date Diagnosis [...] Continue statins. Monitor LFTs and lipid profile. [employer] Other 10-06-2023 Evaluation note* Encounter Date Diagnosis Assessment Notes Treatment Notes Treatment Clinical Notes Dec, Ground glass opacity present on imaging of lung (ICD-10 - R91.8) CT: RUL, RML - 12/2022Dec, Pulmonary nodule (ICD-10 - R91.1) CT: 7mm RML nodule - 12/2022 [employer] Other 10-03-2023 Evaluation note* Encounter Date Diagnosis Assessment Notes Treatment Notes Treatment Clinical Notes Dec, Stage 3b chronic kidney disease (ICD-10 - N18.32) [employer] Other 10-02-2023 Evaluation note* Encounter Date Diagnosis [...] for cerebrovascular and cardiovascular disease. Dec, senior living current use of insulin (ICD-10 - Z79.4) [...] be contributing - must discuss w/ Cardiology [employer] Other 07-03-2023 Evaluation note* Encounter Date Diagnosis Assessment Notes Treatment Notes Treatment Clinical Notes Sep, ASHD (arteriosclerotic heart disease) (ICD-10 - I25.10) [employer] Other 06-21-2023 Evaluation note* Encounter Date Diagnosis Assessment Notes Treatment Notes Treatment Clinical Notes Aug, ASHD (arteriosclerotic heart disease) (ICD-10 - I25.10) [employer] Other 06-02-2023 Evaluation note* Encounter Date Diagnosis [...] to prevent callus formation.Fall precautions. Aug, senior living (current) use of insulin (ICD-10 - Z79.4) [employer] Other 05-11-2023 Evaluation note* Encounter Date Diagnosis Assessment Notes Treatment Notes Treatment Clinical Notes July, Ground glass opacity present on imaging of lung (ICD-10 - R91.8) CT: RML,RUL infiltrate - 12/2021, CT: RML,RUL improved - 03/2022 CT: RML, RUL, GGO improved - 07/2022 [employer] Other 04-03-2023 Evaluation note* Encounter Date Diagnosis [...] D and PTH. Advised low phosphorus diet. [employer] Other 03-30-2023 Evaluation note* Encounter Date Diagnosis [...] by [ ], under direct supervision of Dr. [ ]. Document reviewed and amended by [...] are reviewed at the office visit. May, senior living (current) use of insulin (ICD-10 - Z79.4) [...] (ICD-10 - Z12.5) Yearly PSA and ABDELRAHMAN [employer] Other 03-28-2023 Evaluation note* Encounter Date Diagnosis [...] 2. Blood glucose levels stable. According to [employer] cgm download 06/13/2022- 3: Average glucose 190. [...] hypertension material was printed on [employer]. May, senior living current use of insulin (ICD-10 - Z79.4) May, Hyperlipidemia (ICD-10 - E78.5) High cholesterol material was printed 05/2022 ldl 69- on statin. May, BMI 27.0-27.9,adult (ICD-10 - Z68.27) Eating healthy: tips to make it easier material was printed [employer] Other 02-25-2023 Evaluation note* Encounter Date Diagnosis Assessment Notes Treatment Notes Treatment Clinical Notes May, Abnormality of lung on CXR (ICD-10 - R91.8) [employer] Other 12-20-2022 Evaluation note* Encounter Date Diagnosis [...] 2. Blood glucose levels stable. According to [employer] cgm download 03/07/2022-03/20/20 22: Average glucose 144. Above 250-0%, >180- 15%, 70-180-85%, <70-0%, <54-0%. CV 24.3%. Reviewed download with pt, no incidence of hypoglcyemia noted. Glucose rise between 12-6pm. D/t current shortage of ozempic, recommend pt reduce dose to 0.5mg once weekly until shipment recieved from [facility], then increase to 1mg once [...] hypertension material was printed on diony. Mar, long term current use of insulin (ICD-10 - Z79.4) Mar, Hyperlipidemia (ICD-10 - E78.5) High cholesterol material was printed 06/2021 ldl 48- on statin. Mar, BMI 26.0-26.9,adult (ICD-10 - Z68.26) Eating healthy: tips to make it easier material was printed 9 pound weight loss from last visit, continue with weight loss efforts [facility] Other 11-10-2022 Evaluation note* Encounter Date Diagnosis Assessment Notes Treatment Notes Treatment Clinical Notes Jan, Diabetes mellitus with chronic kidney disease (ICD-10 - E11.22) [employer] Other 10-19-2022 Discharge summary Author Gagan Shahid [facility] January 17, 2022 3:02pm Note Date/Time January 17, 2022 3 :02pm [facility] [address] [place] [address] Discharge Summary Signed Patient: Lani Lizama MR#: [id number] : 1950 Acct:[id number] Age/Sex: 71 / M Adm Date: 2 Loc: Room: [address] [place] [address]: Gagan Shahid DO Copies to: [...] thought this to be indigestion/GERD in the mergers and acquisitions associate hours howeverthis progressively worsened prompting his presentation [...] levels as before. DISCHARGE INSTRUCTIONS FOR CARDIAC DATA ANALYST PHONE NUMBER OF YOUR PHYSICIAN: [phone] PROCEDURE: Heart Cath The following instructions have [...] cold, numb, blue or white, call the perch machine inspector immediately. 4. ACTIVITY: You are advised to [...] bottle, follow the instructions on the bottle. [facility] is not responsible for incorrect prescription [...] <Electronically signed by Gagan Shahid DO> 01/17/22 7659 [facility] Work Phone: 1(443) 904-260610-19-2022 Progress note Author Luis Alfredo Borges [facility] January 17, 2022 11:47am Note Date/Time January 17, 2022 1 1:47am [facility] [address] [place] [address] Cardiology Progress Note Signed Patient: Lani Lizama MR#: [id number] : 1950 Acct:[id number] Age/Sex: 71 / M Adm Date: 2 Loc: Room: [address] [place] [address] Type: ADM IN Attending Dr: Gagan Shahid [...] is also notable worsening of the patient's [place] occlusive coronaryheart disease particularly in the microcirculation [...] daily 3. Patient does have a primary perch machine inspector near his home in [place]. We willschedule him 1 follow-up visit in [facility] for left wrist check and also for counseling and reinforcement/referral to phase 2 monitored cardiac rehabilitation which the patient desires to perform in [place]. 4. Instructed the patient that he can [...] by Luis Alfredo Borges MD> 01/17/[address] [facility] Work Phone: 1(496) 630-506310-18-2022 Progress note Author Gagan Shahid [facility] January 16, 2022 4:09pm Note Date/Time January 16, 2022 4 :09pm [facility] [address] [place] [address] Hospitalist Progress Note Signed Patient: Lani Lizama MR#: [id number] : 1950 Acct:[id number] Age/Sex: 71 / M Adm Date: 2 Loc: Room: [address] [place] [address] Type: ADM IN Attending Dr: Gagan Shahid [...] Tablet PO 01/16/23 08:59 100 mg DAILY RICRADA Administration Carvedilol 25 mg 01/17/22 08:00 Carvedilol [...] DAILY PRN Hypokalemia Potassium Chloride 40 meq 10/18/22 09:57 Potassium Chloride Er 20 Meq Tab.Er.Prt [...] signed by Gagan Shahid DO> 01/16/[address] [facility] Work Phone: 1(876) 885-262010-18-2022 [facility] Consult note Author Luis Alfredo Borges [facility] January 16, 2022 10:24am Note Date/Time January 16, 2022 1 0:24am [facility] [address] [place] [address] Cardiology Consult Note Signed Patient: Lani Lizama MR#: [id number] : 1950 Acct:[id number] Age/Sex: 71 / M Adm Date: 2 Loc: Room: [address] [place] [address] Type: ADM IN Attending Dr: Gagan Shahid [...] well as history of PCI done here [facility] per Dr. Saldaña in May 2020 [...] he activated EMS and was taken to [facility] emergency department. There the patient was [...] Lymph # (Auto) 1.0 1.6 (1.00-4.8) x10E3/uL [place] # (Auto) 0.4 0.8 (0.0-0.8) x10E3/uL Eos [...] by Luis Alfredo Borges MD> 01/16/22 1024 [facility] Work Phone: 1(677) 417-997310-17-2022 History and physical note Author Gagan Shahid [facility] January 15, 2022 6:56pm Note Date/Time January 15, 2022 6 :02pm [facility] [address] [place] [address] Hospitalist H&P Signed Patient: Lani Lizama MR#: [id number] : 1950 Acct:[id number] Age/Sex: 71 / M Adm Date: 2 Loc: Room: [address] [place] [address] Type: ADM IN Attending Dr: Gagan Shahid [...] need for cardiovascular evaluation he was [facility] for further management and cardiology consultation. [...] % (Auto) 13.8 % (.) 01/15/22 15:00 [place] % (Auto) 6.1 % (.) 01/15/22 15:00 Eos % (Auto) 0.9 % (.) 01/15/22 15:00 Baso % (Auto) 0.5 % (.) 01/15/22 15:00 Neut # (Auto) 5.6 x10E3/uL (1.8-7.7) 01/15/22 15:00 Lymph # (Auto) 1.0 x10E3/uL (1.00-4.8) 01/15/22 15:00 [place] # (Auto) 0.4 x10E3/uL (0.0-0.8) 01/15/22 15:00 [...] <Electronically signed by Gagan Shahid DO> 01/15/22 9158 [facility] Work Phone: 1(864) 212-624609-19-2022 Evaluation note* Encounter Date Diagnosis Assessment Notes [...] hypertension material was printed on diony. Nov, long term current use of insulin (ICD-10 - Z79.4) Nov, Hyperlipidemia (ICD-10 - E78.5) High cholesterol material was printed 06/2021 ldl 48- on statin. Nov, BMI 27.0-27.9,adult (ICD-10 - Z68.27) Eating healthy: tips to make it easier material was printed 22 pound weight loss from last visit, continue with weight loss efforts [facility] Other 07-22-2022 Miscellaneous Notes* Telephone Encounter - Vee Day - 10/20/2021 9:42 AM EDT New CBC order. [facility]ee [facility]* Encounter Date Diagnosis Assessment [...] Blood glucose levels above improved. According to [employer] cgm download 07/04/2021-07/17/2021 : Average glucose 146. [...] hypertension material was printed on diony. Jun, long term current use of insulin (ICD-10 - Z79.4) Jun, BMI 30.0-30.9,adult (ICD-10 - Z68.30) Eating healthy: tips to make it easier material was printed see above Jun, Bradycardia (ICD-10 - R00.1) asymptomatic- f/u with cardiology has upcoming apt. If symptomatic i.e. light headed notify sooner [facility] Other 03-21-2022 Evaluation note* Encounter Date Diagnosis Assessment Notes Treatment Notes Treatment Clinical Notes May, Gastro-esophageal reflux disease with esophagitis, without bleeding (ICD-10 - K21.00) [facility] Other 03-08-2022 Evaluation note* Encounter Date Diagnosis [...] His MBD parameters are within the goal. [facility] Other 02-21-2022 Evaluation note* Encounter Date Diagnosis Assessment Notes Treatment Notes Treatment Clinical Notes May, Diabetes mellitus with chronic kidney disease (ICD-10 - E11.22) [facility] Other 01-10-2022 Evaluation note* Encounter Date Diagnosis Assessment Notes Treatment Notes Treatment Clinical Notes Apr, Type 2 diabetes mellitus with hyperglycemia (ICD-10 - E11.65) [facility] Other 01-10-2022 Evaluation note* Encounter Date Diagnosis [...] Blood glucose levels above improved. According to [employer] cgm download 03/28/2021-04/10/19 22: Average glucose 167. [...] hypertension material was printed on diony. Apr, long term current use of insulin (ICD-10 - Z79.4) Apr, BMI 30.0-30.9,adult (ICD-10 - Z68.30) Eating healthy: tips to make it easier material was printed see above [facility] Other 11-16-2021 Evaluation note* Encounter Date Diagnosis [...] His MBD parameters are within the goal. [facility] Other 10-05-2021 Evaluation note* Encounter Date Diagnosis [...] above target with increased variability. According to [employer] cgm download 12/07/2020-01/03/2021: Average glucose 135. Above [...] hypertension material was printed on diony. Dec, long term current use of insulin (ICD-10 - Z79.4) Dec, BMI 31.0-31.9,adult (ICD-10 - Z68.31) Eating healthy: tips to make it easier material was printed 12 pound weight loss from last visit, continue with weight loss efforts Dec, Bradycardia (ICD-10 - R00.1) Pt asymptomatic. Notified perch machine inspector Dr. Velazquez. Pt has apt on Saturday next week. [facility] Other Chick complaint+Reason for visit Narrative* Chief Complaint 4 month follow up Reason for Visit BMI 28.0-28.9,adult Dietary counseling and surveillance HTN (hypertension) Chronic HFrEF (heart failure with reduced ejection fraction) Chronic kidney disease [id number] HTN (hypertension) Hypercholesterolemia Ischemic cardiomyopathy Pulmonary nodule Type 2 diabetes mellitus with hyperglycemia [facility] Work Phone: Evaluation + Plan note No data available for this section General Surgery Luis Enrique Evaluation + Plan note Future Appointments Appointment Date:08/04/2024 10:00:00 AM Scheduled Provider: Location:[facility] Appointment Type:Urology FT Diagnostic Tests Pending * Urine Cytology ([facility]) 08/03/24 [facility] evaluation noteNo InformationNortL[facility] Other evaluation note* Diagnosis Monoclonal gammopathy- Primary Monoclonal paraproteinemia [facility] Diagnosis Onset Date Resolution Status Non-ST elevation myocardial infarction (NSTEMI), initial care episode acute [facility] Work Phone: evalulwfai noteNo assessment information available [facility] Work Phone: evaluation note* Diagnosis Onset Date Resolution Status BMI 26.0-26.9,adult acute Dietary counseling and surveillance acute DM2 (diabetes mellitus, type 2) acute HLD (hyperlipidemia) acute HTN (hypertension) acute [facility] Work Phone: evaluation note* Diagnosis Onset Date Resolution Status BMI 26.0-26.9,adult acute Dietary counseling and surveillance acute DM2 (diabetes mellitus, type 2) acute HLD (hyperlipidemia) acute HTN (hypertension) acute Chronic HFrEF (heart failure with reduced ejection fraction) acute CKD (chronic kidney disease) stage 3, GFR 30-59 ml/min acute HLD (hyperlipidemia) acute [id number] acute Secondary hyperparathyroidism acute Type 2 diabetes 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 acute [facility] Work Phone: evaluation note* Diagnosis Onset Date Resolution Status Dietary counseling and surveillance acute HTN (hypertension) acute Chronic HFrEF (heart failure with reduced ejection fraction) acute CKD (chronic kidney disease) stage 3, GFR 30-59 ml/min acute [id number] acute Secondary hyperparathyroidism acute Type 2 diabetes 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 acute Chronic HFrEF (heart failure with reduced ejection fraction) acute Chronic kidney disease acute HTN (hypertension) acute Hypercholesterolemia acute Ischemic cardiomyopathy acut e Pulmonary nodule acute Type 2 diabetes mellitus with hyperglycemia acute Medicare annual wellness visit, subsequent noneactive Screening PSA (prostate specific antigen) noneactive [facility] Work Phone: evaluation note* Diagnosis Onset Date [...] counseling and surveillance acute HTN (hypertension) acute [facility] Work Phone: evaluation note* Diagnosis Onset Date Resolution Status BMI 28.0-28.9,adult acute Dietary counseling and surveillance acute HTN (hypertension) acute Chronic HFrEF (heart failure with reduced ejection fraction) acute Chronic kidney disease acute [id number] acute HTN (hypertension) acute Hypercholesterolemia acute Ischemic cardiomyopathy acut e Pulmonary nodule acute Type 2 diabetes mellitus with hyperglycemia acute [facility] Work Phone: evaluation note* Diagnosis Onset Date [...] disease) stage 3, GFR 30-59 ml/min acute [id number] acute Secondary hyperparathyroidism acute Type 2 diabetes 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 acute [facility] Work Phone: Evaluation note* Diagnosis Onset Date Resolution Status Chronic HFrEF (heart failure with reduced ejection fraction) acute Chronic kidney disease acute HTN (hypertension) acute Hypercholesterolemia acute Ischemic cardiomyopathy acut e Pulmonary nodule acute Type 2 diabetes mellitus with hyperglycemia acute Chronic HFrEF (heart failure with reduced ejection fraction) acute CKD (chronic kidney disease) stage 3, GFR 30-59 ml/min acute [id number] acute Secondary hyperparathyroidism acute Type 2 diabetes 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 acute BMI 27.0-27.9,adult acute Dietary counseling and surveillance acute HTN (hypertension) acute [facility] Work Phone: Evaluation note* Diagnosis Xerosis cutis- Primary Other specified disease of sebaceous glands Diabetes 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, without long-term current use of insulin (CMS/HCC) Pain due to onychomycosis of toenails of both feet documented in this encounter [facility] HealthcareEvaluation note* Diagnosis Diabetes 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, without long-term current use of insulin (CMS/HCC)- Primary Pain due to onychomycosis of toenails of both feet documented in this encounter [facility] HealthcareHistory general Narrative - Reported* Type Description [...] 11-25-16 Hospitalization History HEART STENT PLACED 03-20 [facility] Other History general Narrative - ReportedNort [facility] Other History general Narrative - Reported* Type [...] 11-25-16 Hospitalization History HEART STENT PLACED 03-20 [facility] Other [facility] general Narrative - Reported* Type Description Date [...] 11-25-16 Hospitalization History HEART STENT PLACED 03-20 [facility] Other [facility] general Narrative - Reported* Type Description Date [...] 11-25-16 Hospitalization History HEART STENT PLACED 03-20 [facility] Other History general Narrative - Reported* Type [...] STENT PLACED 03-20 Hospitalization History SEE ABOVE [facility] Other History general Narrative - ReportedNortDEXMA Other History general Narrative - Reported* Type [...] History Heart attacks 01/2022 and 12/11/ 22 Surgical History CABG Surgical History open heart [...] STENT PLACED 03-20 Hospitalization History SEE ABOVE [facility] Other History general Narrative - Reported* Type [...] STENT PLACED 03-20 Hospitalization History SEE ABOVE [facility] Other [facility] general Narrative - Reported* Type Description Date [...] STENT PLACED 03-20 Hospitalization History SEE ABOVE [facility] Other History general Narrative - Reported* Type [...] History SEE ABOVE Hospitalization History ID 01/21 [facility] Other Hospital Discharge instructions No data available for this section General Surgery Luis Enrique Hospital Discharge instructions Additional Instructions Monitor glucose levels as before. DISCHARGE INSTRUCTIONS FOR CARDIAC DATA ANALYST PHONE NUMBER OF YOUR PHYSICIAN: [phone] PROCEDURE: Heart Cath The following instructions have [...] cold, numb, blue or white, call the perch machine inspector immediately. 4. ACTIVITY: You are advised to [...] bottle, follow the instructions on the bottle. [facility] is not responsible for incorrect prescription information provided by the patient during their visit. Do not stop your medications without consulting your health care provider. Please take the list with you to your next doctor's appointment. [facility] Work Phone: Hospital Discharge instructionsAmbulatory Orders* Referral to Podiatry Location: None Selected [facility] Work Phone: Hospital Discharge instructionsAmbulatory Orders* Referral to Urology Time Frame: 07/14/24, Location: None Selected [facility] Work Phone: Progress note No data available for this section General Surgery [place] Summary Purpose Family History No Family History [...] stage 3, GFR 30-59 ml/min HLD (hyperlipidemia) [id number] Secondary hyperparathyroidism Type 2 diabetes mellitus with diabetic chronic kidney disease 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 6 month follow up MEDICARE WELLNESS Reason for Visit Dietary counseling a nd surveillance HTN (hypertension) Chronic HFrEF (heart failure with reduced ejection fraction) CKD (chronic kidney disease) stage 3, GFR 30-59 ml/min [id number] Secondary hyperparathyroidism Type 2 diabetes mellitus with [...] kidney disease) stage 3, GFR 30-59 ml/min [id number] Secondary hyperparathyroidism Type 2 diabetes mellitus with [...] kidney disease) stage 3, GFR 30-59 ml/min [id number] Secondary hyperparathyroidism Type 2 diabetes mellitus with diabetic chronic kidney disease BMI 27.0-27.9,adult Dietary counseling and surveillance HTN (hypertension) Chief Complaint Admit Date Amb Documentation February 18, 2024 9:11am CC Adult Risk Stratification February 172023 10:26am IP f/u [facility] chest pain-HIGH RISK Nov 2023 9:29am 4 month f/u-HIGH RISK April 16, 2024 8:19am 3 month April 30, 2024 9 :21am Reason for Visit Admit Date Chronic HFrEF (heart failure with reduced ejection fraction) February 24, 2024 9:29am Chronic kidney disease February 23 9:29am HTN (hypertension) February 24, 2024 9:29am Hypercholesterolemia February 24, 2024 9:29am Ischemic cardiomyopathy February 23, 024 9:29am Pulmonary nodule February 24, 2024 [...] 2024 9 :21am Dietary counseling and surveillance [facility] 2024 9:21am HTN (hypertension) April 30, 2024 [...] 2024 9 :21am Dietary counseling and surveillance [facility] 2024 9:21am HTN (hypertension) April 30, 2024 [...] HLD (hyperlipidemia) August 03, 2024 9:17a m Chief Complaint Admit Date RENAL 6 MONTH F/U July 14, 2024 9:3 6am Amb Documentation July 16, 2024 9:0 8am [facility] ER; blood in urine-HIGH RISK July 012024 11:19am 3 month August 03, 2024 9:17am Amb Documentation August 21, 2024 1:11p m [facility] f/u August 25, 2024 11:31 am Reason for Visit Admit Date Chronic HFrEF [...] chronic kidney disease July 27, 2024 11:19am Dietary counseling and surveillance August 03, 2024 9:17am HTN (hypertension) August 03, 2024 9:17am BMI 31.0-31.9,adult August 03, 2024 9:17am DM2 (diabetes mellitus, type 2) August 03, 2024 9:17am HLD (hyperlipidemia) August 03, 2024 9:17a m Scab August 03, 2024 9:17am Chronic HFrEF (heart failure with reduce d ejection fraction) August 25, 2024 11:31am Chronic kidney disease August 25, 2024 11 :31am HTN (hypertension) August 25, 2024 11:31 am Hypercholesterolemia August 25, 2024 11:3 1am Ischemic cardiomyopathy August 25, 2024 1 1:31am Polyuria August 25, 2024 11:31 am Pulmonary nodule August 25, 2024 11:31 am Type 2 diabetes mellitus wit h diabetic peripheral angiopathy without gangrene August 25, 2024 11:31am Type 2 diabetes mellitus with hyperglyce dimple August 25, 2024 11:31am Type 2 diabetes mellitus wit h severe nonproliferative diabetic retinopathy August 25, 2024 11:31am Additional Source Comments (unrecognized sect ion and content) No Status Records FoundNo Status Records FoundNo Status Records FoundNo Status Records FoundNo Status Records FoundNo Status Records FoundNo Status Records FoundNo Status Records Found INFORMATION SOURCE (unrecogn ized section and content) DATE CREATED AUTHOR 11/29/2018 [facility] DATE CREATED AUTHOR AUTHOR'S ORGANIZ ATION 10/25/2021 [facility] DATE CREATED AUTHOR AUTHOR'S ORGANIZ ATION 08/13/2022 [facility] [place] [facility] DATE CREATED AUTHOR AUTHOR'S ORGANIZ ATION 06/20/2024 [facility] EPIC DATE CREATED AUTHOR AUTHOR'S ORGANIZ ATION 08/09/2024 [facility] DATE CREATED AUTHOR AUTHOR'S ORGANIZ ATION 08/12/2024 [facility] DATE CREATED AUTHOR AUTHOR'S ORGANIZ ATION 08/29/2024 [facility] DATE CREATED AUTHOR AUTHOR'S ORGANIZ ATION 09/07/2024 [facility] REASON FOR VISIT (unrecogniz ed section [...] July 02, 2023 End: July 02, 2023 Enterprise Integration Architect Relationship Specialty Start Date End Date Harley Crespo DO [address] [place] [address] PCP - General Internal Medicine 07/18/18 Team Status: Inactive Member Role Status Dates Harley Crespo DO Primary Care Provider Active Gagan Shahid DO Admit Provider, Attending Provider Active Team Status: Active Member Role Status Dates Harley Crespo DO Primary Care Provider Active Ryan Garrett APRN BUSINESS LIAISON MANAGER-C Active Valerie Gallegos PA-C Active Arlen Kwong APRN Attending Provider Active Team Status: Inactive Member Role Status Dates Arlen Kwong APRN Attending Provider Active Start: March 12, 2023 End: March 12, 2023 Team Status: Inactive Member Role Status Dates Harley Crespo DO Primary Care Provider Active Start: March 12, 2023 End: March 12, 2023 Ryan Garrett APRN BUSINESS LIAISON MANAGER-C Active Sta rt: March 12, 2023 End: [...] January 23, 2024 End: January 23, 2024 Enterprise Integration Architect Relationship Specialty Start Date End Date Harley Crespo MD [address] [place] [id number] PCP - General Internal Medicine 11/07/23 Enterprise Integration Architect Relationship Specialty Start Date End Date Harley Crespo MD [address] [place] [id number] PCP - General Internal Medicine 11/07/23 Enterprise Integration Architect Relationship Specialty Start Date End Date Harley Crespo MD [address] [place] [address] PCP - General Internal Medicine 11/07/23 Team Status: Active Member Role Status Dates Harley Crespo , DO Primary Care Provider Active Start: August 13, 2024 Katarzyna Youngblood MD Attending Provider Active St art: August 13, 2024 Team Status: Active Member Role Status Dates Harley Crespo , DO Primary Care Provider Active Start: August 21, 2024 Codi Easley CMA Attending Provider Active Start: August 21, 2024 Team Status: Inactive Member Role Status Dates Harley Cherie , DO Primary Care Provide r, Attending Provider Active Start: August 25, 2024 End: August 25, 2024 Team Status: Active Member Role Status Dates Harley Crespo , DO Primary Care Provide r, Attending Provider Active Start: August 27, 2024 Source Comments (unrecognize d section and content) In the event this informatio n is protected by the Federal Confidentiality of Alcohol and Drug Abuse Patient Records regulations: The Federal rules restrict any use of the information to criminally investigate or prosecute any alcohol or drug abuse patient.[facility] Goals (unrecognized section and content) [...] BE BASED ON THE PRIMARY CLINICAL RECORDS. [facility] [employer] [facility]. provides no warranty or guarantee of the accuracy or completeness of information in this document.
[2024-09-21 09:54] LABS: INR 1.06; Partial Thromboplastin Time 27.6 sec (22.3-36.2); Prothrombin Time 11.2 sec (9.0-11.6)
[2024-09-21 11:11] LABS: Alanine Aminotransferase 25 U/L (16-63); Albumin Level 3.7 g/dL (3.4-5.0); Alkaline Phosphatase 135 U/L (46-116); Anion Gap 14.5; Aspartate Amino Transferase 19 U/L (15-37); BUN Creatinine Ratio 15.4; Bilirubin Total 0.6 mg/dL (0.2-1.0); Calcium 8.9 mg/dL (8.5-10.1); Chloride 104 mmol/L (98-107); Estimated GFR (African America 41 (>=60 mL/min/1.73m^2); Estimated GFR (Non-African Ame 34 (>=60 mL/min/1.73m^2); Globulin 3.7 g/dL; Glucose 348 mg/dL (74-106); Potassium 4.5 mmol/L (3.5-5.1); Sodium 140 mmol/L (136-145); Total Protein 7.4 g/dL (6.4-8.2)
== END 2024-09-21 09:14 | disposition home or self-care (01) ==
LOC: LAB 09:16
PROVIDERS: PCP Internal Medicine; Visit Provider Urology
DX: C67.9 Malignant neoplasm of bladder, unspecified (principal); N39.0 Urinary tract infection, site not specified
CPT/HCPCS: 36415; 80053; 85025; 85610; 85730; 87086

== ENCOUNTER 2024-09-26 08:19 | Outpatient (OUT) | payer MEDICARE, OTHER, SELFPAY ==
--- OUTSIDE RECORDS SUMMARY | 2023-04-04 05:40 | XMS_ITS | Continuity of Care Document ---
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 Insulin dosing requires individualization. - Active isosorbide mononitrate ER 60 mg tablet,extended release 24 hr take 1 tablet by oral route 2 times every day in the morning 60 MG - Active clopidogrel 75 mg tablet take 1 tablet by oral route every day 75 MG - Active aspirin 81 mg chewable tablet chew 1 tablet by oral route every day 81 MG - Active alprazolam 0.5 mg tablet take 1 tablet by oral route every day 0.5 MG - Active bumetanide 0.5 mg tablet take [...] requires individualization. 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 [address], [address], [place], [place], [id number] , [place]. tel:[phone] Referring Provider: July Kavita, [address], [place], [address] . tel:[phone] OFFICE/OUTPA TIENT VISIT, EST, Low [facility], [address], [place], [address], [place] tel:[phone] TRACI Guardado Follow Up of 3 month NPDR w/ME (chief complaint) Essential (primary) hypertensionCombine d forms of age-related cataract, bilateral 3 El Rashedy July. [address], [address], [place], [place], [id number] , [place]. tel:[phone] Specialist : Kuldip Larson, [address] [place], [address]. tel:[phone] erring Provider: July Flip Stockton, [address], [place], [address] . tel:[phone] [facility], [address] [place], [address], [place] tel: [phone] RVA Mckeon No Information 3 Flip Stockton July. [address], [address] [facility], [place], [place], [id number] , [place]. [phone] OFFICE/OUTPA TIENT VISIT, EST, Low [facility], [address] [place], [address], [place] tel: [phone] RVA [place] NPDR (chief complaint) Age-related nuclear cataract, bilateralEssential (primary) hypertension 3 Flip Stockton July. [address], [address] [facility], [place], [place], [id number] , [place]. [phone] Referring Provider: Kuldip Larson, [address] [place] [address], [address]. tel:[phone] [facility], [address] [place], [address], [place] tel:[phone] RVA [place] Type 2 Dm with severe NPDR with ME (chief complaint) No Information 2 Alkaliby Ahmed. [address], [address], [place], [place], [id number] , [place]. [phone] Referring Provider: Kuldip Larson, [address] [place] [address], [address]. tel:[phone] OFFICE/OUTPA TIENT VISIT, EST, Moderate [facility], [address] [place], [address], [place] tel:[phone] RVA Geo diabetic retinopathy (chief complaint) No Information 2 Alkaliby Ahmed. [address], [address], [place], [place], [address] , [place]. tel:[phone] Referring Provider: Kuldip Larson, [address] [place], [address]. tel:[phone] [facility], [address] [place], [address], [place] tel:[phone] RVA Geo NPDR (chief complaint)de creased vision (chief complaint) Age-related nuclear cataract, bilateralEssential (primary) hypertension 2 Alkaliby Ahmed. [address], [place] [address], [place], [place], [id number] , [place]. tel:[phone] Referring Provider: No Ref Doc No Referring Doc. OFFICE/OUTPA TIENT VISIT, EST, Moderate [facility], [address] [place], [place], [facility], [place] tel:[phone] RVA Geo diabetic retinopathy (chief complaint) Type 2 diab with mod nonp rtnop without macular edema, l eyeAge-related nuclear cataract, bilateralEssential (primary) hypertension 2 Alkaliby Ahmed. [address], [place] [address], [place], [place], [id number] , [place]. tel:[phone] Referring Provider: Kuldip Larson, [address] [place], [address]. tel:[phone] OFFICE/OUTPA TIENT VISIT, EST, Moderate [facility], [address] [place], [place], [facility], [place] tel:[phone] RVA Geo diabetic retinopathy (chief complaint)ne w floaters (chief complaint) 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, r eyeType 2 diab with mod nonp rtnop without macular edema, l eyeAge-related nuclear cataract, bilateralEssential (primary) hypertension 2 Alkaliby Ahmed. [address], [place] [address], [place], [place], [id number] , [place]. tel:[phone] Referring Provider: Kuldip Larson, [address] [place], [address]. tel:[phone] [facility], [address] [place], [address], [place] [phone] DEENakul Geo NPDR (chief complaint)st able vision (chief complaint) Type 2 diab with mod nonp rtnop without macular edema, l eyeRetinal hemorrhageAge-relat ed nuclear cataract, bilateralEssential (primary) hypertension Oct-2 1 Jeremiah Manley. [address], [address], [place], [place], [id number] , [place]. [phone] Referring Provider: Kuldip Mota, [address] [place] [address], [facility]. tel:[phone] OFFICE/OUTPA TIENT VISIT, NEW [facility], [address] [place], [address], [place] [phone] TRACI Guardado possible macular edema (chief complaint) Age-related nuclear cataract, bilateralEssential (primary) hypertensionType 2 diab with mod nonp rtnop without macular edema, l eyeRetinal hemorrhage Sep-0 1 Jeremiah Manley. [address], [address], [place], [place], [address] , [place]. [phone] Specialist : Kuldip Larson, [address] [place] [address], [facility]. tel:[phone] erring Provider: Kuldip Mota, [address] [place] [address], [facility]. tel:[phone] Family History Family Member Type Diagnosis Age At Onset Mother Problem Diabetes mellitus Mother Problem hypertension Payers Payer name Insurance type Covered constitution party ID Glenna lugo(s) Medicare [place] [id number] [employer] [place] Supp[place] [id number] Social History Type Description Quantity Date Captured [...] with macular edema, bilateral Impression/Plan Related to Combi fabian forms [...] Related to Age-r elated nuclear cataract, bilateral Oct Impression/Plan Related to Retin al hemorrhage Return [...] nonp rtnop with macular edema, r eye Assessments Type Assessment Date assessment Type [...]
--- OUTSIDE RECORDS SUMMARY | 2024-09-24 08:40 | XMS_ITS | Encounter Summary ---
Author Organization [facility] Address [address] [place] [address] Care Team Providers Care Waste Machine Tender Name Role Phone Harley Goodman DO Primary Care Provider [phone] Reason for Visit * Reason Comments DM Foot Care Dm nail care Encounter Details Date Type Department Care Team (Late st Contact Info) Description 09/24/2024 8:40 AM EDT Office Visit [facility] [address] [facility] [address] [place] [phone] Kenneth Aguilar DPM [address] [facility] [address] [place] [address] Diabetes 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, without long-term current use of insulin (HCC) (Primary Dx); Pain due to onychomycosis of toenails of both feet; Xerosis cutis Social History Tobacco Use Types Packs/Day Years [...] on file documented as of this encounter Last Filed Vital Signs Vital Sign Reading Time Taken Comments Blood Pressure - - Pulse - - Temperature - - Respiratory Rate 18 09/24/2024 8:32 AM EDT Oxygen Saturation - - Inhaled Oxygen Concentration - - Weight 77.6 kg (171 lb) 09/24/2024 8:32 AM EDT Height 170.2 cm (5' 7 ) 09/24/2024 8:32 AM EDT Body Mass Index 26.78 09/24/2024 8:32 AM EDT documented in this encounter Progress Notes * Kenneth Aguilar DPM - 09/24/2024 8:40 AM EDT Patient: Prem Ayoub : 1950 PCP: Harley Goodman DO SUBJECTIVE This is a 73 y.o. male [...] Past Medical History: Diagnosis Date Diabetic retinopathy (HCC) HTN (hypertension) Hypercholesteremia UT (myocardial infarction) (HCC) 2021 Two total: 02/20, 03/22 Type 1 diabetes mellitus (HCC) Medications: Current Outpatient Medications: ALPRAZolam (Xanax) 0.5 [...] in the morning., Disp: , Rfl: HYDROcodone-acetaminophen ([place]) 5-325 MG tablet, TAKE 1 TABLET BY [...] Health Financial Resource Strain: Low Risk (08/13/2024) Received from [facility] Overall Financial Resource Strain (CARDIA) Difficulty of Paying Living Expenses: Not hard at all Food Insecurity: No Food Insecurity (08/13/2024) Received from [facility] Hunger Vital Sign Within the past 12 months, you worried that your food would run out before you got the money to buymore.: Never true Ran Out of Food in the Last Year: Not on file Transportation Needs: No Transportation Needs (08/13/2024) Received from [facility] Transportation In the past 12 months, has lack of transportation kept you from medical appointments or from getting medications?: No Lack of Transportation (Non-Medical): Not on file Physical Activity: Not on file Stress: Not on file Social Connections: Not on file Intimate Partner Violence: Unknown (08/13/2024) Received from [facility] Humiliation, Afraid, Rape, and Kick questionnaire Fear of Current or Ex-Partner: No Emotionally Abused: Not on file Physically Abused: Not on file Sexually Abused: Not on file Housing Stability: Low Risk (08/13/2024) Received from [facility] Housing Stability Vital Sign In the last 12 months, was there a time when you were not able to pay the mortgage or rent on time?: No Number of Times Moved in the Last Year: Not on file At any time in the past 12 months, were you homeless or living in a care home (including now)?: No ROS: General: denies fever, [...] growth with thin shiny atrophic skin bilaterally. Negative Dry scaly skin to bilateral heels VASC: Positive DP and negative PT pedal pulses NEURO: 5.07 [place] Chun monofilament test diminished to digits and forefoot bilaterally 125Hz tuning fork diminished to 1st MPJ bilaterally ORTHO: Positive pain on palpation to toenails of the left 1,2,3,4,5 toes and right 1,2,3,4,5 toes ASSESSMENT 1. 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 Pain due to onychomycosis of toenails of both feet 3. Xerosis cutis PLAN Discussed proper foot care with patient [...] daily with prescription offered to him Kenneth Aguilar DPM documented in this encounter Plan of Treatment Upcoming Encounters Date Type Department Care Team (Late st Contact Info) Description 12/03/2024 8:30 AM EDT Office Visit [facility] [address] [facility] [address] [place] [phone] Kenneth Aguilar DPM [address] [facility] [address] [place] [address] documented as of this encounter Visit Diagnoses Diagnosis Diabetes 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, without long-term current use of insulin (HCC)- Primary Pain due to onychomycosis of toenails of both feet Xerosis cutis Other specified disease of sebaceous glands documented in this encounter Care Teams Waste Machine Tender Relationship Specialty Start Date End Date Harley Goodman DO [address] [place] [phone] PCP - General Internal Medicine 11/07/23 documented as of this encounter
--- OUTSIDE RECORDS SUMMARY | 2024-09-25 09:00 | XMS_ITS | Encounter Summary ---
Author Organization [facility] Address [address] [place] [address] Care Team Providers Care Director Packaging Name Role Phone Harley Goodman DO Primary Care Provider [phone] Encounter Details Date Type Department Care Team (Late st Contact Info) Description 09/25/2024 9:00 AM EDT Pre-Admission Testing [facility] Pre-Anesthesia Clinic [address] [place] [address] Social History Tobacco Use Types Packs/Day Years Used Date Smoking Tobacco: Former Cigarettes Smokeless Tobacco: Never Alcohol Use Standard Drinks/Week Comments Never 0 (1 standard drink = 0.6 oz pur e alcohol) [facility] Utilities Answer Date Recorded In the past 12 months has e electric, gas, oil, or water [employer] threatened to shut off services in your [...] any time in the past 12 m [facility], were you homeless or living in [...] Sign Reading Time Taken Comments Blood Pressure 153/74 09/25/2024 8:56 AM EDT Pulse 80 09/25/2024 8:56 AM EDT Temperature 36.3 C (97.4 F) 09/25/2024 8:56 AM EDT Respiratory Rate 18 09/25/2024 8:56 AM EDT Oxygen Saturation 98% 09/25/2024 8:56 AM EDT Inhaled Oxygen Concentration - - Weight 83.5 kg (184 lb) 09/25/2024 8:56 AM EDT Height 170.2 cm (5' 7 ) 09/25/2024 8:56 AM EDT Body Mass Index 28.82 09/25/2024 8:56 AM EDT documented in this encounter H&P Notes * Will Pepe, FOOT ORTHOPEDIST - 09/25/2024 9:00 AM EDT Images from the original note were not included. Pre-Anesthesia Clinic 09/25/24 Pt presents for Pre Anesthesia Clinic visit with son. Pt is scheduled 09/29/[address] Mcmanus to under go procedure: TURBT under General on 09/29/24. Harley Goodman, DO [address] [facility] [address] [facility]/pharmacy #[id number] - [place], [place] - [address] [facility] [address] [facility] [id number] [facility] - [place], [place] - [address] [place] [address] [place] [address] [facility] [address] Subjective Vitals: 09/25/24 0856 BP: 153/74 Pulse: 80 Resp: 18 Temp: 36.3 ??C (97.4 ??F) SpO2: 98% Allergies[1] Medication Documentation Review Audit Reviewed by Shannon Mi MA (Gear Lapping Machine Operator) on 08/28/24 at 0832 Medication Order Taking? Sig Documenting Provider Last Dose Status ALPRAZolam (Xanax) 0.5 mg tablet [id number] Take 1 tablet by mouth in the morning, afternoon, and at bedtime. Racquel Marcelo MD Active amLODIPine (Norvasc) 5 mg tablet [id number] Take 1 tablet (5 mg) by mouth in the morning for 30 doses. Graeme Sorensen MD Active aspirin 81 mg chewable tablet [id number] Chew 1 tablet every day by oral route. Racquel Marcelo MD Active cholecalciferol (Vitamin D3) 25 MCG (1000 units) tablet [id number] Take 1,000 Units by mouth in the morning. Racquel Marcelo MD Active clopidogrel (Plavix) 75 mg tablet [id number] Take 1 tablet by mouth in the morning. Racquel Marcelo MD Active docusate sodium (Colace) 100 mg capsule [id number] Take 100 mg by mouth in the morning. Racquel Marcelo MD Active empagliflozin (Jardiance) 10 mg [id number] Take 1 tablet every day by oral route. Racquel Marcelo MD Active insulin aspart (NovoLOG) 100 unit/mL injection vial [id number] Inject 10 Units under the skin with breakfast, with lunch, and with evening meal. Sliding scale Racquel Marcelo MD Active insulin detemir (Levemir) 100 unit/mL injection [id number] Inject 5 Units under the skin two times daily. Racquel Marcelo MD Active isosorbide mononitrate ER (Imdur) 60 mg 24 hr tablet [id number] Take 1 tablet (60 mg) by mouth 2 times daily. Carlos A Duarte MD 08/20/24 235 metoprolol succinate XL (Toprol-XL) 50 mg 24 hr tablet [id number] Take 3 tablets (150 mg) by mouth inthe morning for 97 doses. Do not crush or chew. Cheryl Albrecht MD 08/20/242358 nitroglycerin (Nitrostat) 0.4 [address] SL tablet [id number] 1 TABLET UNDER TONGUE EVERY 5 MINS, UP TO3 DOSES NEEDED FOR CHEST PAIN Pinky Bishop MD Active pantoprazole (ProtoNix) 40 mg EC tablet [id number] TAKE 1 TABLET BY MOUTH DAILY ON AN EMPTY STOMACH FOLLOWED BY BREAKFAST 30 MINUTES AFTER Historical Provider, Active ranolazine (Ranexa) 500 mg 12 hr tablet [id number] Take 1 tablet (500 mg) by mouth two times daily. Do not crush, chew, or split. Pinky Bishop MD Active rosuvastatin (Crestor) 40 mg tablet [id number] TAKE 1 TABLET BY MOUTH AT BEDTIME Kevin Jacobs MD Active spironolactone (Aldactone) 25 mg tablet [id number] Take 1 tablet (25 mg) by mouth in the morning. Pinky Bishop MD Active thiamine (Vitamin B-1) 100 mg tablet [id number] Take 100 mg by mouth every other day. Historical ProviderMD Active thiamine (Vitamin B-1) 250 mg tablet [id number] Take 250 mg by mouth every other day. Historical Provider, Active Immunization History Administered Date(s) Administered Influenza Whole 01/19/2008 Influenza, High Dose Seasonal, Preservative Free 01/16/2017 Influenza, Seasonal, Quadrivalent, Adjuvanted 12/15/2021 Influenza, injectable, quadrivalent, preservative free 11/30/2016 Influenza, seasonal, injectable 12/13/2010, 01/23/2012 Influenza, trivalent, adjuvanted 01/17/2018 Novel ejncztpmy-S2S1-52, preservative-free 01/27/2009 Pfizer SARS-CoV-2 Vaccination 05/30/2020, 06/21/2020, 02/21/2021 Pneumococcal Conjugate PCV 13 11/14/2016 Pneumococcal Polysaccharide PPV23 04/02/2016, 01/17/2018 Problem List[2] There are no diagnoses linked to this encounter. History Medical History[3] Surgical History[4] HPI Lani Lizama is a 73 y.o. year old male patient who presents for Pre Anesthesia Clinic visit with son. Pt is scheduled 09/29/[address] Mcmanus to under go procedure: TURBT under General on 09/29/24. Pt denies hx of anesthesia complications: malignant hyperthermia, serotonin syndrome or severe PONV. Pt also denies family hx of anesthesia complications. Pt has full upper denture and missing lower molars bilateral. Pt reports had recent labs done at [facility]. PAC - RN to obtain results of preop labs. EKG on 08/13/24 : Biventricular Pacer Patient was recently hospitalized on 08/14/24 with NSTEMI and ideally needed coronary angiogram, however patient referred to be discharged. Medications were adjusted particular Norvasc added to his regimen and he was discharged on 08/14/2024. Patient has since followed up with cardiology for Cardiac Clearance on 09/02/24: Low-Moderate Risk. Can hold plavix 5 days. Donnot hold ASA. Stress Test 08/14/24: EF 62%, No ischemia Echo 08/14/24: EF 25% Pt has Pacer/AICD last device check 08/14/24. Pt cardiac hx: CABG x 5 in 2018, Stents x 8, last 08/2023. PMH: CAD, HTN, HLD,Bladder Ca, CKD, DM, GERD, [place], arthritis PSH: Pacer/AICD placed 02/21; CABG x 5 2018, Cardiac Stents, last in 08/2023, cardiac Cath, Cysto/TURBT Pt denies CP or SOB. NO N/V/D. Resp easy reg. Skin warm and dry. Lab on 08/28/2024 Component Date Value Ref Range Status PSA 08/28/2024 1.5 0.4 - 4 ng/mL Final Sodium 08/28/2024 138 136 - 145 mmol/L Final Potassium 08/28/2024 5.9 (H) 3.5 - 5.1 mmol/L Final Chloride 08/28/2024 105 98 - 107 mmol/L Final CO2 08/28/2024 28 21 - 31 mmol/L Final Anion Gap 08/28/2024 11 7 - 20 mmol/L Final BUN 08/28/2024 30 (H) 7 - 25 mg/dL Final Creatinine 08/28/2024 1.95 (H) 0.70 - 1.30 mg/dL Final BUN/Creatinine Ratio 08/28/2024 15.4 Final Glucose 08/28/2024 185 (H) 70 - 100 mg/dL Final Calcium 08/28/2024 9.6 8.6 - 10.3 mg/dL Final AST 08/28/2024 20 13 - 39 U/L Final ALT (SGPT) 08/28/2024 17 7 - 52 U/L Final Alkaline Phosphatase 08/28/2024 117 (H) 34 - 104 U/L Final Total Protein 08/28/2024 7.7 6.0 - 8.3 g/dL Final Albumin 08/28/2024 4.5 3.5 - 5.7 g/dL Final Total Bilirubin 08/28/2024 0.6 0.3 - 1.0 mg/dL Final eGFR 08/28/2024 35.9 (L) >60.0 mL/min/1.73m*2 Final [facility]???s estimated glomerular filtration rate (eGFR) [...] disproportionately affect any one group of individuals. Urine Culture 08/28/2024 <10,000 CFU/ML No Significant Growth Final aPTT 08/28/2024 29.3 25.0 - 35.0 Seconds Final Clinical significance of the APTT is questionable in the presence of heparin. Protime 08/28/2024 14.2 12.3 - 14.8 Seconds Final INR 08/28/2024 1.10 0.90 - 1.10 Final ACCCP RECOMMENDED INR FOR WARFARIN THERAPY CONDITION INR PROPHYLAXIS OF VENOUS THROMBOSIS 2-3 (HIGH-RISK SURGERY) TREATMENT OF VENOUS THROMBOSIS 2-3 TREATMENT OF PULMONARY EMBOLISM 2-3 PREVENTION OF SYSTEMIC EMBOLISM: 2-3 ACUTE MYOCARDIAL INFARCTION TISSUE HEART VALVES VALVULAR HEART DISEASE ATRIAL FIBRILLATION RECURRENT SYSTEMIC EMBOLISM MECHANICAL HEART VALVE 2.5-3.5 FROM: ORAL ANTICOAGULANTS. MECHANISM OF ACTION, CLINICAL EFFECTIVENESS, AND OPTIMAL THERAPEUTIC RANGE. CHEST 1995;108:231S-246S. Auto WBC 08/28/2024 9.60 4.00 - 10.60 10*3/uL Final RBC 08/28/2024 4.93 4.20 - 5.70 10*6/uL Final Hemoglobin 08/28/2024 14.4 13.0 - 17.0 g/dL Final Hematocrit 08/28/2024 44.8 39.0 - 50.0 % Final MCV 08/28/2024 90.9 82.0 - 98.0 fL Final MCH 08/28/2024 29.2 27.0 - 33.0 pg Final MCHC 08/28/2024 32.1 32.0 - 35.0 g/dL Final RDW 08/28/2024 14.1 11.5 - 15.0 % Final Neutrophils % 08/28/2024 69.9 40.0 - 72.0 % Final Lymphocytes % 08/28/2024 18.9 (L) 20.0 - 45.0 % Final Monocytes % 08/28/2024 7.9 5.0 - 12.0 % Final Eosinophils % 08/28/2024 1.8 0.0 - 6.0 % Final Basophils % 08/28/2024 0.9 0.0 - 1.0 % Final Neutrophils Absolute 08/28/2024 6.71 1.60 - 7.60 10*3/uL Final Lymphocytes Absolute 08/28/2024 1.81 1.20 - 4.00 10*3/uL Final Monocytes Absolute 08/28/2024 0.76 0.10 - 1.00 10*3/uL Final Eosinophils Absolute 08/28/2024 0.17 0.00 - 0.50 10*3/uL Final Basophils Absolute 08/28/2024 0.09 0.00 - 0.20 10*3/uL Final Platelets 08/28/2024 278 150 - 400 10*3/uL Final nRBC % 08/28/2024 0.0 0 % Final Immature Granulocytes % 08/28/2024 0.6 0.0 - 1.0 % Final Immature Granulocytes Absolute 08/28/2024 0.06 0.00 - 0.20 10*3/uL Final === 08/04/24 === XR TRANSFER OF OUTSIDE FILMS Complete Echo (TTE) w/wo Imaging Agent, Strain, 3D, Bubble Study Result Date: 08/14/2024 1 1 [facility] Heart Station [address] [place] [address] [phone] (fax) Echocardiogram-[facility] Name: LANI [...] Procedure Staff Reading Group: [facility] Sexologist: MASTER Ortega, RDCS Ordering Physician: TATIANNA HAYWARD Wall Motion Scores -1 - hyperkinesia, 0 - not evaluated, 1 - normal, 2 - hypokinesia, 3 - akinesia, 4 - dyskinesia Transthoracic echo (TTE) complete Result Date: 02/13/2024 1 1 [facility] Heart Station [address] [place] [address] [phone] (fax) Echocardiogram-[facility] Name: LANI LIZAMA Study Date: 02/13/2024 03:21 PM B/P: 125 mmHg/83 mmHg HR: 57 bpm Date of : 1950 Location: [facility] [...] reviewed the examination Procedure Staff Reading Group: [facility] GroupReferring Physician: JAYSHREE HERNANDEZ Sexologist: SHYANNE Wadsworth Ordering Physician: Christian Bergman MD Wall Motion Scores -1 -hyperkinesia, 0 - not evaluated, 1 - normal, 2 - hypokinesia, 3 - akinesia, 4 - dyskinesia Complete Echo (TTE) w/wo Imaging Agent, Strain, 3D, Bubble Study Result Date: 09/27/2023 1 1 [facility] Heart Station [address] [facility] [place] [address] [phone] (fax) Echocardiogram-[facility] Name: LANI LIZAMA Study Date: 09/27/2023 07:42 AM B/P: 118 mmHg/57 mmHg HR: 84 bpm Date of : 1950 Location: [facility] [...] Procedure Staff Reading Group: [facility] Sexologist: MASTER Ortega, RDCS Ordering Physician: DEJUAN POPE Wall Motion Scores -1 - hyperkinesia, 0 - not evaluated, 1 - normal, 2 - hypokinesia, 3 - akinesia, 4 - dyskinesia Encounter Date: 08/13/24 ECG 12 lead Result Value Ventricular Rate 86 Atrial Rate 86 DE Interval 154 QRS DURATION 144 QT Interval 424 QTC CALCULATION(BAZETT) 507 P Houston 37 R-Houston -56 T Wave Houston 114 Impression Atrial-sensed ventricular-paced rhythm Biventricular pacemaker detected Abnormal ECG When compared with ECG of 13-FEB-2024 04:45, Vent. rate has increased BY 9 BPM Confirmed by Kevin Jacobs ([id number]) on 08/13/2024 9:47:29 PM Anesthesia History: No record on chart. Charts Reviewed Today: 08/28/24 Dr Mcmanus visit: Lani Lizama is a 73 y.o. male with significant cardiac history including CAD status post CABG x 5, PCI to SVG-PDA on 08/2023, HFrEF with EF to 15 to 20% status post biventricular ICD, peripheral vascular disease, carotid artery stenosis, third-degree heart block status post implantable pacemaker placement, CKD. Patient had gross hematuria without significant pain. He was therefore referred to [facility] where he underwent a cystoscopy with cytology and biopsy of bladder wall lesion. CT abdomen pelvis from outside also demonstrates posterior approximately 2 x 2 x 2 cm mass of the posterior bladder wall. Patient endorses ongoing intermittent hematuria without symptoms. No obstructive vo iding. Unfortunately we do not have access to the actual CT images or the pathology reports at thistime. No family history of soft tissue malignancy. Patient does have a father with history of lymphoma. No first-degree relatives with any breast, colon, ovarian, pancreatic, prostate cancers. Unable to see any PSA results Plan: Quit smoking 30 years ago. However prior to this he was a 20-year, 2 pack/day ([id number]) smoker Gross hematuria status post cystoscopy with cytology and biopsy of 2 x 2 x 2 posterior wall bladderlesion seen on CT report from [facility] dated 07/30/2024 Will require formal staging cystoscopy with TURBT From cardiology note 08/20/2024 they would recommend waiting 4 to 6 weeks from that time They be okay with holding Plavix for maximum of 5 days before surgery Pt instructed to followup with cards early next week for clarification as from urological perspective preference would be to complete TURBT either next week or following week with plavix held for ideally 1 week prior Review of Systems Constitutional: Negative. Negative for appetite change, fatigue and fever. HENT: Negative. Negative for trouble swallowing. Eyes: Negative. Respiratory: Negative. Negative for chest tightness and shortness of breath. Cardiovascular: Negative. Negative for chest pain and leg swelling. Gastrointestinal: Negative. Negative for constipation, diarrhea, nausea and vomiting. Endocrine: Negative. Genitourinary: Negative. Musculoskeletal: Positive for arthralgias. Skin: Negative. Allergic/Immunologic: Negative. Neurological: Negative. Hematological: Negative. Psychiatric/Behavioral: Negative. All other systems reviewed and are negative. METs: 3 Mallampati: ll Media Information [place] [facility] Clinical Unknown 09/25/2024 09:04 Attached To: Pre-Admission Testing on 09/25/24 with PRE-ANESTHESIA CLINIC ROOM Source Information Will Pepe [facility] Pac Document History Media Information Document Information [facility]: Clinical Unknown 09/25/2024 09:04 Attached To: Pre-Admission Testing on 09/25/24 with PRE-ANESTHESIA CLINIC ROOM Source Information Will Pepe [facility] Pac Document History Objective Physical Exam Constitutional: Appearance: Normal appearance. HENT: Head: Normocephalic and atraumatic. Right Ear: Tympanic membrane normal. Left Ear: Tympanic membrane normal. Nose: Nose normal. Mouth/Throat: Mouth: Mucous membranes are moist. Pharynx: Oropharynx is clear. Comments: Full upper dentures and missing lower molars bilateral Eyes: Extraocular Movements: Extraocular movements intact. Conjunctiva/sclera: Conjunctivae normal. Pupils: Pupils are equal, round, and reactive to light. Cardiovascular: Rate and Rhythm: Normal rate and regular rhythm. Pulses: Normal pulses. Heart sounds: Normal heart sounds. Pulmonary: Effort: Pulmonary effort is normal. Breath sounds: Normal breath sounds. Abdominal: Palpations: Abdomen is soft. Musculoskeletal: General: Normal range of motion. Cervical back: Rigidity present. Skin: General: Skin is warm and dry. Neurological: Mental Status: He is alert and oriented to person, place, and time. Psychiatric: Mood and Affect: Mood normal. Behavior: Behavior normal. Assessment and Plan Pending obtaining preop labs done at [place] [facility] Pt recent Hgb AIC 08/03/24: 6.1, office to fax results to [facility] - PAC If no acute issues this patient may Return for Procedure as scheduled Will Pepe CNP [1] No Known Allergies [2] Patient Active Problem List Diagnosis Coronary artery disease involving gambell coronary artery of gambell heart Type 1 diabetes mellitus ([facility]/HCC) Essential hypertension Gastroesophageal reflux disease History of coronary artery bypass surgery Increased immunoglobulin Irritable bowel syndrome Mixed hyperlipidemia Monoclonal gammopathy Nausea Overweight with body mass index (BMI) 25.0-29.9 Right lower quadrant abdominal pain Spondylosis of lumbar spine Chronic kidney disease Stenosis of abdominal aorta Type 2 diabetes mellitus without complication, with long-term current use of insulin ([facility]) AV block, 3rd degree ([facility]) Age-related nuclear cataract of both eyes Blepharitis of upper and lower eyelids of both eyes Dry eyes 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 edema associated with type 1 diabetes mellitus ([facility]/HCC) NSTEMI (non-ST elevated myocardial infarction) ([facility]) Acute on chronic systolic heart failure, NYHA class 3 ([facility]) HFrEF (heart failure with reduced ejection fraction) ([facility]) Angina at rest Dietary counseling and surveillance CHRYSTAL (generalized anxiety disorder) Ground glass opacity present on imaging of lung Hypoxia Pulmonary nodule Secondary hyperparathyroidism Type 2 diabetes mellitus with hyperglycemia ([facility]) Moderate nonproliferative diabetic retinopathy of left eye ([facility]) Severe nonproliferative diabetic retinopathy associated with type 2 diabetes mellitus (CMS/HCC) PVD (peripheral vascular disease) Carotid stenosis, asymptomatic Chest pain Gross hematuria Bladder cancer (CMS/HCC) Lesion of bladder [3] Past Medical History: Diagnosis Date Carotid artery stenosis Coronary artery disease Diabetes mellitus (CMS/HCC) Hyperlipidemia Hypertension PVD (peripheral vascular disease) Third degree heart block (CMS/HCC) [4] Past Surgical History: Procedure Laterality Date CARDIAC CATHETERIZATION 07/12/2020 CARDIAC CATHETERIZATION 10/15/2018 CARDIAC CATHETERIZATION 02/24/2018 CARDIAC CATHETERIZATION 09/27/2015 CORONARY ARTERY BYPASS GRAFT CORONARY STENT PLACEMENT documented in this encounter Plan of Treatment Upcoming Encounters Date Type Department Care Team (Late st Contact Info) Description 09/29/2024 12:30 PM EDT Hospital Encounter [facility] Main Operating Room [address] [place] [id number] Last Mcmanus MD [address] [place] [address] Dr Feliz [facility] [place] [address] 09/29/2024 12:30 PM EDT - 09/29/2024 2:00 PM EDT Surgery [facility] Main Operating Room [address] [place] [address] Last Mcmanus MD [address] [place] [address] Dr [facility] [place] [address] TURBT (TRANSURETHRAL RESECTION OF BLADDER TUMOR) [64529 (CPT )] 10/13/2024 9:00 AM EDT Office Visit [facility] [address] [place] [address] Pinky Bishop MD [address] [facility] [address] [facility] [place] [address] Scheduled Procedures Name Priority Associated Diagnoses Date/Ti me TURBT (TRANSURETHRAL RESECTI ON OF BLADDER TUMOR) Lesion of bladder 09/29/2024 12:30 PM EDT documented as of this encounter Visit Diagnoses Not on filedocumented in this encounter Care Teams Director Packaging Relationship Specialty Start Date End Date Harley Goodman DO [address] [facility] [address] PCP - General 03/02/22 documented as of this encounter
--- OUTSIDE RECORDS SUMMARY | 2024-09-26 08:24 | XMS_ITS | Encounter Summary ---
Author Organization [facility] Address [address] [place] [address] Care Team Providers Care Automatic Thread Winder Name Role Phone Harley Goodman DO Primary Care Provider [phone] Encounter Details Date Type Department Care Team (Late st Contact Info) Description 07/16/2024 Orders Only [facility] Card[facility] [address] [place] [address] Mannie Armijo MD [address] [place] [address] Social History Tobacco Use Types Packs/Day Years Used Date Smoking Tobacco: Former Cigarettes Smokeless Tobacco: Never Alcohol Use Standard Drinks/Week Comments Never 0 (1 standard drink = 0.6 oz pur e alcohol) [facility] Utilities Answer Date Recorded In the past 12 months has e [employer] gas, oil, or water [employer] threatened to shut off services in your [...] any time in the past 12 [facility] were you homeless or living in a snf (including now)? No 02/13/2024 Hunger Vital Sign [...] Description 09/29/2024 12:30 PM EDT Hospital Encounter [facility] Main Operating Room [address] [place] [address] Last Mcmanus MD [address] [place] [address] [place] [address] 09/29/2024 12:30 PM EDT - 09/29/2024 2:00 PM EDT Surgery [facility] Main Operating Room [address] [place] [address] Last Mcmanus MD [address] [place] [address] [place] [address] TURBT (TRANSURETHRAL RESECTION OF BLADDER TUMOR) [43217 (CPT )] 10/13/2024 9:00 AM EDT Office Visit [facility] [address] [place] [address] Pinky Bishop MD [address] [facility] [address] [facility] [place] [id number] Scheduled Procedures Name Priority Associated Diagnoses Date/Ti [...] Mannie Armijo MD CV IMPLANTABLE CARDIAC DEVICE [place] OCEDURES Final Result documented in this encounter Visit Diagnoses Not on filedocumented in this encounter Care Teams Automatic Thread Winder Relationship Specialty Start Date End Date Harley Goodman DO [address] [place] [place] [address] PCP - General 03/02/22 documented as of this encounter
--- OUTSIDE RECORDS SUMMARY | 2024-09-26 08:24 | XMS_ITS | Clinical Summary ---
Author Organization [facility] tem Address [facility] [id number] [address] [place] [address] Care Team Providers Care Phlebotomy Services Technician Name Role Phone Harley Goodman DO Primary Care Provider [phone] Allergies No known active allergies Medications carvedilol [...] Medical Devices [place] [address] MEDICARE Care Teams Phlebotomy Services Technician Relationship Specialty Start Date End Date Harley Goodman DO [facility] [place] [address] PCP - General Internal Medicine 02/14/18
--- OUTSIDE RECORDS SUMMARY | 2024-09-26 08:24 | XMS_ITS | Clinical Summary ---
Author Organization [facility] Address [address] [place] [address] Care Team Providers Care Insole Taper Name Role Phone Harley Goodman DO Primary Care Provider [phone] Allergies No known active allergies Medications ALPRAZolam [...] Units under the skin two times daily. SLIDING SCALE Active pantoprazole (ProtoNix) 40 mg EC tablet [...] 90 tablet 3 5 09/08/19 26 Active insulin degludec (TRESIBA FLEXTOUCH U-100 SUBQ) Inject 15 Units under the skin in the morning. Active amLODIPine (Norvasc) 5 mg tabletIndicatio ns:Hypertension [...] (03/21/2022): Added automatically from request for surgery [id number] Gastroesophageal reflux disease 03/02/2022 Increased immunoglobulin 03/02/2022 [...] check diet Coronary artery disease invo lving ekwok coronary artery of ekwok heart 09/19/2011 Assessment & Plan (08/13/2024 1:28 PM EDT): As above Type 1 diabetes mellitus 09/19/2011 Essential hypertension 09/19/2011 Encounters Date Type Department Care Team Description 09/25/2024 9:00 AM EDT Pre-Admission Testing [facility] Pre-Anesthesia Clinic [address] [place] [address] 09/25/2024 Orders Only [facility] Pre-Anesthesia Clinic [address] [place] [address] Ember Adams RN 09/25/2024 Orders Only [facility] Pre-Anesthesia Clinic [address] [place] [address] Kb Petersen RN 09/25/2024 Orders Only [facility] Pre-Operation [address] [place] [address] Will Pepe CNP 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) (Primary Dx) 09/25/2024 Orders Only [facility] Pre-Anesthesia Clinic [address] [place] [address] Will Pepe ADVERTISING ANALYST 09/25/2024 Travel 09/21/2024 Orders Only [facility] Urology [address] [place] [address] Last Mcmanus MD Malignant neoplasm of urinary bladder, unspecified site (CMS/HCC) (Primary Dx); Urinary tract infection without hematuria, site unspecified; Other specified disorders of bladder 09/21/2024 Telephone [facility] Urology [address] [place] [address] Serenity De Leon MA 09/18/2024 Orders Only [facility] Pre-Anesthesia Clinic [address] [place] [address] Kb Petersen RN 09/07/2024 Refill [facility] [address] [facility] [place] [address] Criselda Rebollar MA Hypertension, unspecified type 09/02/2024 Telephone [facility] [address] [facility] [place] [address] Criselda Rebollar MA 09/02/2024 Orders Only [facility] Pre-Anesthesia Clinic [address] [place] [address] Kb Petersen RN 08/28/2024 10:05 AM EDT Lab [facility] Outpatient Draw Station [address] [place] [address] Lesion of bladder; Encounter for screening for malignant neoplasm of prostate; Urinary tract infection without hematuria, site unspecified; Other specified disorders of bladder 08/28/2024 8:30 AM EDT Office Visit [facility] Urology [address] [place] [place] [address] Last Mcmanus MD Lesion of bladder (Primary Dx); Encounter for screening for malignant neoplasm of prostate; Urinary tract infection without hematuria, site unspecified; Other specified disorders of bladder 08/28/2024 - 08/28/2024 11:59 PM EDT Hospital Encounter [facility] Radiology External Films [address] [place] [place] [address] Discharge Disposition: Home or Self Care () 08/20/2024 9:45 AM EDT Office Visit [address] [phone] Pinky Bishop MD Chronic systolic heart failure (CMS/HCC) (Primary Dx); 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; Primary hypertension; Status post implantation of automatic cardioverter/defibrill ator (AICD); Palpitations 08/14/2024 Orders Only [facility] [address] [place] [address] Kevin Jacobs MD 08/13/2024 11:14 AM EDT - 08/14/2024 6:44 PM EDT Hospital Encounter [facility] [address] [place] [address] Tomas Covington MD Saad, Hani, MD Chest pain (Primary Dx); Hypertension, unspecified type Discharge Disposition: Home or Self Care () 08/13/2024 Travel 08/04/2024 - 08/04/2024 11:59 PM EDT Hospital Encounter [facility] Radiology External Films [address] [place] [address] Bladder tumor Discharge Disposition: Home or Self Care () 08/04/2024 Orders Only [facility] Urology [address] [place] [address] Last Mcmanus MD Bladder tumor 07/16/2024 9:15 AM EDT Ancillary Procedure [facility] Cardiology Clinic [address] [place] [address] Pre-operative cardiovascular examination, ICD in place 07/16/2024 Orders Only [facility] Cardiology Clinic [address] [place] [address] Mannie Armijo MD from Last 3 Months Immunizations Immunization Administration Dates Next Due Influenza Whole 01/19/2008 Influenza, High Dose Seasonal, Preservative Free 01/16/2017 Influenza, Seasonal, Quadrivalent, Adjuvanted Influenza, injectable, quadrivalent, preservativ e free 11/30/2016 Influenza, seasonal, injectable 01/23/2012,12/13 Influenza, trivalent, adjuvanted 01/17/2018 Novel [id number], preservative-free 01/27 Pneumococcal Conjugate PCV 13 11/14/2016 [...] drink = 0.6 oz pur e alcohol) [facility] Utilities Answer Date Recorded In the past 12 months has [facility] [employer], gas, oil, or water [employer] threatened to shut off services in your [...] were you homeless or living in a senior care (including now)? No 08/13/2024 Hunger Vital Sign [...] Mass Index 28.82 09/25/2024 8:56 AM EDT Plan of Treatment Upcoming Encounters Date Type Department Care Team (Late st Contact Info) Description 09/29/2024 12:30 PM EDT Hospital Encounter [facility] Main Operating Room [address] [place] [address] Last Mcmanus MD [address] [place] [address] Dr Feliz [address] [place] [address] 09/29/2024 12:30 PM EDT - 09/29/2024 2:00 PM EDT Surgery [facility] Main Operating Room [address] [place] [address] Last Mcmanus MD [address] [place] [address] Dr Feliz [address] [place] [address] TURBT (TRANSURETHRAL RESECTION OF BLADDER TUMOR) [82754 (CPT )] 10/13/2024 9:00 AM EDT Office Visit [facility] [address] [place] [address] Pinky Bishop MD [address] [facility] [address] [place] [address] Scheduled Procedures Name Priority Associated [...] this topic Medical Devices Implanted Type Area Health And Wellness Coordinator Device Identifier Shelf Expiration Date Model / Serial / Lot Vigilant X4 Laminated Plastics Assembler And Gluer-D Is-1/Df4/Is4 Implanted:Qty: 1 on 02/12/2023 by Kevin Jacobs MD at [facility] PROBATION WORKER-D ICD [employer] [id number] 09/09/2024 [id number] / [id number] / Stent,Synergy Mr 4.00 X 28 - [id number] Implanted:Qty: 1 on 09/27/2023 by Petar Foreman MD at [facility] Drug Eluting Stent [employer] [id number] 04/09/2024 [id number] / / [id number] Ingevity+ Is-1 Bi Positive Fix Ra/Rv 52cm Implanted:Qty: 1 on 03/21/2022 by Kevin Jacobs MD at [facility] Lead [employer] [id number] 03/09/2024 7841 / [id number] / Ingevity+ Is-1 Bi Positive Fix Ra/Rv 45cm Implanted:Qty: 1 on 03/21/2022 by Kevin Jacobs MD at [facility] Lead [employer] [id number] 01/02/2024 7840 / [id number] / Holloway 4-Front S Active Fix Single Coil 59cm Implanted:Qty: 1 on 02/12/2023 by Kevin Jacobs MD at [facility] Lead [employer] [id number] 01/06/2025 0672 / [id number] / Lead,Acuity X4,Spiral L - [id number] - [id number] Implanted:Qty: 1 on 02/12/2023 by Kevin Jacobs MD at [facility] Lead [employer] [id number] 01/13/2025 4677 / [id number] / Pacer,Accolade ,Mri Dr Castelan - [id number] - [id number] Implanted:Qty: 1 on 03/21/2022 by Kevin Jacobs MD at [facility] Pacemaker [employer] 02/05/2024 L331 / [id number] / [id number] Description:Mode: DDD RYTHMIQ: OFF LRL / MTR [...] - ICD Routine 07/16/2024 12:00 AM EDT from Last 3 Months Results * (ABNORMAL) CBC auto differential (08/28/2024 9:58 AM EDT) Only the most recent of2 resultswithin the time period is included. Auto WBC 9.60 4.00 - 10.60 10*3/uL 08/28/2024 11:15 AM EDT [facility] ([facility]) RBC 4.93 4.20 - 5.70 10*6/uL 08/28/2024 11:15 AM EDT [facility] ([facility]) Hemoglobin 14.4 13.0 - 17.0 g/dL 08/28/2024 11:15 AM EDT [facility] ([facility]) Hematocrit 44.8 39.0 - 50.0 % 08/28/2024 11:15 AM EDT [facility] ([facility]) MCV 90.9 82.0 - 98.0 fL 08/28/2024 11:15 AM EDT [facility] ([facility]) MCH 29.2 27.0 - 33.0 pg 08/28/2024 11:15 AM EDT [facility] ([facility]) MCHC 32.1 32.0 - 35.0 g/dL 08/28/2024 11:15 AM [facility] ([facility]) RDW 14.1 11.5 - 15.0 % 08/28/2024 11:15 AM T [facility] ([facility]) Neutrophils % 69.9 40.0 - 72.0 % 08/28/2024 11:15 AM T [facility] ([facility]) Lymphocytes % 18.9(L) 20.0 - 45.0 % 08/28/2024 11:15 AM [facility] ([facility]) Monocytes % 7.9 5.0 - 12.0 % 08/28/2024 11:15 AM [facility] ([facility]) Eosinophils % 1.8 0.0 - 6.0 % 08/28/2024 11:15 AM [facility] ([facility]) Basophils % 0.9 0.0 - 1.0 % 08/28/2024 11:15 AM [facility] ([facility]) Neutrophils Absolute 6.71 1.60 - 7.60 10*3/uL 08/28/2024 11:15 AM [facility] ([facility]) Lymphocytes Absolute 1.81 1.20 - 4.00 10*3/uL 08/28/2024 11:15 AM T [facility] ([facility]) Monocytes Absolute 0.76 0.10 - 1.00 10*3/uL 08/28/2024 11:15 AM T [facility] ([facility]) Eosinophils Absolute 0.17 0.00 - 0.50 10*3/uL 08/28/2024 11:15 AM [facility] ([facility]) Basophils Absolute 0.09 0.00 - 0.20 10*3/uL 08/28/2024 11:15 AM [facility] ([facility]) Platelets 278 150 - 400 10*3/uL 08/28/2024 11:15 AM EDT [facility] ([facility]) nRBC % 0.0 0 % 08/28/2024 11:15 AM EDT [facility] ([facility]) Immature Granulocytes % 0.6 0.0 - 1.0 % 08/28/2024 11:15 AM EDT [facility] ([facility]) Immature Granulocytes Absolute 0.06 0.00 - 0.20 10*3/uL 08/28/2024 11:15 AM EDT [facility] ([facility]) Blood Venous blood specimen / Unknown Venipuncture / Unknown 08/28/2024 9:58 AM EDT 08/28/2024 10:46 AM EDT Obrajeev Mcmanus MD LAB BLOOD ORDERABLES Final Resul t Performing Organization Address [facility] Co de Phone Number [facility]) [address] [place] [address] * APTT (08/28/2024 9:58 AM EDT) aPTT 29.3 25.0 - 35.0 Seconds 08/28/2024 11:06 AM EDT [facility] ([facility]) Comment:Clinical significanc e of the APTT is questionable in the presence of heparin. Blood Venous blood specimen / Unknown Venipuncture / Unknown 08/28/2024 9:58 AM EDT 08/28/2024 10:38 AM EDT Obrajeev Mcmanus MD LAB BLOOD ORDERABLES Final Resul t Performing Organization Address City/[facility]/ZIP Co de Phone Number [facility]) [address] [place] [address] * Protime-INR (08/28/2024 9:58 AM EDT) Protime 14.2 12.3 - 14.8 Seconds 08/28/2024 11:06 AM EDT [facility]) INR 1.10 0.90 - 1.10 08/28/2024 11:06 AM EDT [facility] HARRY) Comment: [facility] RECOMMENDED INR FOR WARFARIN THERAPY [...] MD LAB BLOOD ORDERABLES Final Resul t [facility] RadhaMIGUEL) [address] [place] [id number] * Urine culture, routine (08/28/2024 9:58 AM EDT) Pathologist [facility] Urine Culture <10,000 CFU/ML No Significant Growth MALCOLM 08/30/2024 6:58 AM EDT [facility] ([facility]) Urine Urine specimen obtained by clean catch procedure / Unknown Non-blood Collection / Unknown 08/28/2024 9:58 AM EDT 08/28/2024 10:38 AM EDT Last Mcmanus MD LAB MICROBIOLOGY - GENERAL ORDER KURTIS Final Result [facility] ([facility]) [address], [place] [id number] * PSA Screening (08/28/2024 9:58 AM EDT) PSA 1.5 0.4 - 4 ng/mL 08/28/2024 11:18 AM EDT [facility] ([facility]) Blood Venous blood specimen / Unknown Venipuncture / Unknown 08/28/2024 9:58 AM EDT 08/28/2024 10:45 AM EDT us Last Mcmanus MD LAB BLOOD ORDERABLES Final Resul t [facility] ([facility]) [address], [place] [id number] * (ABNORMAL) Comprehensive metabolic panel (08/28/2024 9:58 AM EDT) Only the most recent of2 resultswithin the time period is included. Sodium 138 136 - 145 mmol/L 08/28/2024 11:14 AM EDT [facility] ([facility]) Potassium 5.9(H) 3.5 - 5.1 mmol/L 08/28/2024 11:14 AM EDT [facility] ([facility]) Chloride 105 98 - 107 mmol/L 08/28/2024 11:14 AM EDT [facility] ([facility]) CO2 28 21 - 31 mmol/L 08/28/2024 11:14 AM EDT [facility] ([facility]) Anion Gap 11 7 - 20 mmol/L 08/28/2024 11:14 AM EDT [facility] ([facility]) BUN 30(H) 7 - 25 mg/dL 08/28/2024 11:14 AM EDT [facility] ([facility]) Creatinine 1.95(H) 0.70 - 1.30 mg/dL 08/28/2024 11:14 AM EDT [facility] ([facility]) BUN/Creatinine Ratio 15.4 08/01 11:14 AM EDT [facility] ([facility]) Glucose 185(H) 70 - 100 mg/dL 08/28/2024 11:14 AM EDT [facility] ([facility]) Calcium 9.6 8.6 - 10.3 mg/dL 08/28/2024 11:14 AM EDT [facility] ([facility]) AST 20 13 - 39 U/L 08/28/2024 11:14 AM T [facility] ([facility]) ALT (SGPT) 17 7 - 52 U/L 08/28/2024 11:14 AM EDT [facility] ([facility]) Alkaline Phosphatase 117(H) 34 - 104 U/L 08/28/2024 11:14 AM T [facility] ([facility]) Total Protein 7.7 6.0 - 8.3 g/dL 08/28/2024 11:14 AM T [facility] ([facility]) Albumin 4.5 3.5 - 5.7 g/dL 08/28/2024 11:14 AM [facility] ([facility]) Total Bilirubin 0.6 0.3 - 1.0 mg/dL 08/28/2024 11:14 AM [facility] ([facility]) eGFR 35.9(L) >60.0 mL/min/1. 73m*2 08/28/2024 11:14 AM [facility] ([facility]) Comment:[facility] s estimated glomerular filtration rate (eGFR) will [...] MD LAB BLOOD ORDERABLES Final Resul t [facility] ([facility]) [address] [place] [address] * CT transfer of outside films (08/28/2024 12:00 AM EDT) Narrative IMAGING - 08/28/2024 9:30 AM EDT This order has been auto-finalized and does not contain a result. us Last Mcmanus MD IMG CT PROCEDURES Final Result Performing Organization Address City/[facility]/ZIP Co de Phone Number IMAGING * (ABNORMAL) POCT glucose meter (08/14/2024 3:34 PM EDT) Only the most recent of6 resultswithin the time period is included. [facility] Glucose POC 155(H) 70 - 105 mg/dL 08/14/2024 3:47 PM EDT [facility] ([facility]) Comment:dcundic Blood Capillary blood specimen / Unknown 08/14/2024 3:34 PM EDT 08/14/2024 3:47 PM EDT Narrative [facility] ([facility]) - 08/14/2024 3:47 PM EDT Waived Testing in the ED is performed under the ED CLIA certificate #[id number]. Devante Leon MD LAB BLOOD ORDERABLES Final Resul t Performing Organization Address [facility] Co de Phone Number [facility] ([facility]) [address] [place] [address] * Lexiscan Stress Myocardial Perfusion Imaging (08/14/2024 11:03 AM EDT) Anatomical Region Laterality Modality Other 08/14/2024 10:4 3 AM EDT Narrative 08/14/2024 9:52 AM EDT 1 1 [facility] Heart Station [address] [place] [address] [phone] (fax) Lexiscan Stress Myocardial Perfusion Imaging- [facility] Name: LANI LIZAMA Study Date: 08/14/2024 10:43 AM B/P: / HR: Date of : 1950 Location: [facility] Height: 67 in. Age: 73 year(s) [...] Lexiscan Exercise Time: 03:00 Device: Treadmill HR Cooter Used: 12.00 % HR Recovery: -1 bpm Frequent VE: 0 VE/min Resolution: No Symptoms Max HR: 93 bpm Target HR: 125 bpm Achieved: No Resting HR: 82 bpm Max Predicted HR: 148 bpm Achv. of Max Predicted: 62 % BP Max: 154/89 BP at Rest: 147/72 Max RPP: 20062 mmHg*bpm Max ST Lead: V6 Max ST Phase: Postinfsn Stage No. in Phase: [address] Stage: 3-[address] Amplitude: -0.[address] Harlan: -0.470 mV/s Max ST Time in Phase: 03:30 Artifact Count: 0 Chest Pain: no Pharmalogical Stress Examination Protocol Stage Name Time in Stage Load Heart Rate BP Dosage ST Level Cardiac Arrhy Cardiac Symp. Other Pain Changes Symptom Supine 10:26 1.00 mets 82 bpm 147/72 -0.750 mm Infusion 30 seconds 00:30 1.00 mets 82 bpm 147/72 -0.650 mm [id number] 00:30 1.00 mets 87 bpm 147/72 -0.650 [...] 4 - Aneurysmal Procedure Staff Reading Group: [facility] Referring Physician: HARLEY GOODMAN Stress Data Officer: Angely Dalal Field Support Representative: Shira Zhou Ordering Physician: TATIANNA HAYWARD Advanced Practitioner: Bozena Santacruz NP Nurse: Juli Salazar Resting Perfusion Procedure Note Yuridia Velez MD - 08/14/2024 1 1 [facility] Heart Station [address] [place] [address] [phone] (fax) Lexiscan Stress Myocardial Perfusion Imaging- [facility] Name: LANI LIZAMA Study Date: 08/14/2024 10:43 AM B/P: / HR: Date of : 1950 Location: [facility] Height: 67 in. Age: 73 year(s) [...] Lexiscan Exercise Time: 03:00 Device: Treadmill HR Cooter Used: 12.00 % HR Recovery: -1 bpm Frequent VE: 0 VE/min Resolution: No Symptoms Max HR: 93 bpm Target HR: 125 bpm Achieved: No Resting HR: 82 bpm Max Predicted HR: 148 bpm Achv. of Max Predicted: 62 % BP Max: 154/89 BP at Rest: 147/72 Max RPP: 27254 mmHg*bpm Max ST Lead: V6 Max ST Phase: Postinfsn Stage No. in Phase: [address] Stage: 3-[address] Amplitude: -0.[address] Harlan: -0.470 mV/s Max ST Time in Phase: 03:30 Artifact Count: 0 Chest Pain: no Pharmalogical Stress Examination Protocol Stage Name Time in Stage Load Heart Rate BP Dosage ST Level Cardiac Arrhy Cardiac Symp. Other Pain Changes Symptom Supine 10:26 1.00 mets 82 bpm 147/72 -0.750 mm Infusion 30 seconds 00:30 1.00 mets 82 bpm 147/72 -0.650 mm [id number] 00:30 1.00 mets 87 bpm 147/72 -0.650 [...] 4 - Aneurysmal Procedure Staff Reading Group: [facility] Referring Physician: HARLEY GOODMAN Stress Data Officer: Angely Dalal Field Support Representative: Shira Zhou Ordering Physician: TATIANNA HAYWARD Advanced Practitioner: Bozena Santacruz NP Nurse: Juli Salazar Resting Perfusion us Tatianna Hayward MD CV STRESS PROCEDURES Final Result * COMPLETE ECHO (TTE) W/ IMAGING AGENT (08/14/2024 8:59 AM EDT) Anatomical Region Laterality Modality Other 08/14/2024 8:33 AM EDT Narrative 08/14/2024 9:44 AM EDT 1 1 [facility] Heart Station [address] [place] [address] [phone] (fax) Echocardiogram-[facility] Name: LANI LIZAMA Study Date: 08/14/2024 08:33 AM B/P: 118 mmHg/75 mmHg HR: 75 bpm Date of : 1950 Location: [facility] Height: 67 in. Age: 73 year(s) [...] No pericardial effusion. Procedure Staff Reading Group: [facility] Meat Carver: MASTER Ortega, RDCS Ordering Physician: TATIANNA HAYWARD Wall Motion Scores -1 - hyperkinesia, 0 - not evaluated, 1 - normal, 2 - hypokinesia, 3 - akinesia, 4 - dyskinesia Procedure Note Fabricio Galindo MD - 08/14/2024 1 1 [facility] Heart Station [address] [place] [address] [phone] (fax) Echocardiogram-[facility] Name: LANI LIZAMA Study Date: 08/14/2024 08:33 AM B/P: 118 mmHg/75 mmHg HR: 75 bpm Date of : 1950 Location: [facility] Height: 67 in. Age: 73 year(s) [...] No pericardial effusion. Procedure Staff Reading Group: [facility] Meat Carver: MASTER Ortega, RDCS Ordering Physician: TATIANNA HAYWARD Wall Motion Scores -1 - hyperkinesia, 0 - not evaluated, 1 - normal, 2 - hypokinesia, 3 - akinesia, 4 - dyskinesia Tatianna Hayward MD CV ECHO PROCEDURES Final R esult * (ABNORMAL) High Sensitivity Troponin I (08/14/2024 7:14 AM EDT) Only the most recent of2 resultswithin the time period is included. [facility] High Sensitivity Troponin I 160(HH) <20 ng/L 08/14/2024 8:12 AM EDT [facility] ([facility]) Blood Venous blood specimen / Unknown Venipuncture / Unknown 08/14/2024 7:14 AM EDT 08/14/2024 7:25 AM EDT us Devante Leon MD LAB BLOOD ORDERABLES Final Resul t [facility] ([facility]) [address] [place] [address] * Lavender Top (08/14/2024 7:14 AM EDT) Pathologist [facility] Extra Tube Hold for add-ons. 08/14/2024 9:01 AM EDT [facility] ([facility]) Comment:Auto resulted. Blood Venous blood specimen / Unknown 08/14/2024 7:14 AM EDT 08/14/2024 7:25 AM EDT us Devante Leon MD LAB BLOOD ORDERABLES Final Resul t [facility] ([facility]) [address] [place], [place] [id number] * Cardiac device check - Remote ICD (08/14/2024 12:00 AM EDT) Only the most recent of2 resultswithin the time period is included. Anatomical Region Laterality Modality Other 08/14/2024 us Kevin Jacobs MD CV IMPLANTABLE CARDIAC DEVICE TN OCEDURES Final Result * ECG 12 lead (08/13/2024 5:41 PM EDT) Ventricular Rate 86 BPM GE MUSE Atrial Rate 86 BPM GE MUSE TN Interval 154 ms GE MUSE QRS DURATION 144 ms GE MUSE QT Interval 424 ms GE MUSE QTC CALCULATION(BAZE TT) 507 ms GE MUSE P Clements 37 degrees GE MUSE R-Clements -56 degrees GE MUSE T Wave Clements 114 degrees GE MUSE 08/13/2024 5:25 PM [...] - 5.0 mg/dL 08/13/2024 3:18 PM EDT [facility] ([facility]) Blood Venous blood specimen / Unknown Venipuncture / Unknown 08/13/2024 2:21 PM EDT 08/13/2024 2:50 PM EDT Graeme Sorensen MD LAB BLOOD ORDERABLES Final Re sult Performing Organization Address [facility]/ZIP Co de Phone Number [facility]) [address], [place] [id number] * Magnesium (08/13/2024 2:21 PM EDT) Magnesium 1.9 1.9 - 2.7 mg/dL 08/13/2024 3:18 PM EDT [facility]) Blood Venous blood specimen / Unknown Venipuncture / Unknown 08/13/2024 2:21 PM EDT 08/13/2024 2:50 PM EDT Graeme Sorensen MD LAB BLOOD ORDERABLES Final Re sult Performing Organization Address [facility] Co de Phone Number [facility]) [address] [place] [address] * XR transfer of outside films (08/04/2024 12:00 AM EDT) Narrative IMAGING - 08/04/2024 10:24 AM EDT This order has been auto-finalized and does not contain a result. Last Mcmanus MD IMG XR PROCEDURES Final Result Performing Organization Address City/[facility]/ZIP Co de Phone Number IMAGING * CARDIAC DEVICE CHECK - REMOTE - ICD (07/17/2024 10:15 AM EDT) Mannie Armijo MD CV IMPLANTABLE CARDIAC DEVICE TN OCEDURES Final Result CPACS from Last 3 Months Insurance MEDICARE Member Subscriber Plan / Payer (Ef fective 2016-Present) Name:Lani Lizama Member ID:[id number] Relation to Subscriber:Self Name:Lani Lizama Subscriber ID:[id number] Payer ID:[id number] Group ID:Not on file Type:Medicare Address: [facility] [place] [id number] [facility] [place] Advance Directives * Full Code (Latest Code [...] 12:52 PM 01/28/2023 8:05 PM Care Teams Insole Taper Relationship Specialty Start Date End Date Harley Goodman DO [address] [place] [address] PCP - General 03/02/22
--- OUTSIDE RECORDS SUMMARY | 2024-09-26 08:24 | XMS_ITS | Encounter Summary ---
Author Organization [facility] Address [address] [place] [address] Care Team Providers Care Cork Tile Floor Layer Name Role Phone Harley Goodman DO Primary Care Provider [phone] Encounter Details Date Type Department Care Team (Late st Contact Info) Description 09/21/2024 Telephone [facility] Urology [address] [place] [address] Serenity De Leon MA Social History Tobacco Use Types Packs/Day Years Used Date Smoking Tobacco: Former Cigarettes Smokeless Tobacco: Never Alcohol Use Standard Drinks/Week Comments Never 0 (1 standard drink = 0.6 oz pur e alcohol) [facility] Utilities Answer Date Recorded In the past 12 months has e electric, gas, oil, or water [employer] threatened to shut off services in your [...] any time in the past 12 m [facility], were you homeless or living [...] preop lab order to be faxed to [facility] fax#[phone]. Thank you This phone message was created by the Ambulatory float staff. If you need practice support specialist follow up regarding this patient, please make your appropriate clinic staff member aware. Thank you. documented in this encounter Plan of Treatment Upcoming Encounters Date Type Department Care Team (Late st Contact Info) Description 09/29/2024 12:30 PM EDT Hospital Encounter [facility] Main Operating Room [address] [place] [address] Last Mcmanus MD [address] [place] [address] Dr Feliz [address] [place] [address] 09/29/2024 12:30 PM EDT - 09/29/2024 2:00 PM EDT Surgery [facility] Main Operating Room [address] [place] [address] Last Mcmanus MD [address] [facility] [address] [place] [address] TURBT (TRANSURETHRAL RESECTION OF BLADDER TUMOR) [78604 (CPT )] 10/13/2024 9:00 AM EDT Office Visit [facility] [address] [place] [address] Pinky Bishop MD [address] [facility] [address] [facility] [place] [address] Scheduled Procedures Name Priority Associated Diagnoses Date/Ti me TURBT (TRANSURETHRAL RESECTI ON OF BLADDER TUMOR) Lesion of bladder 09/29/2024 12:30 PM EDT documented as of this encounter Visit Diagnoses Not on filedocumented in this encounter Care Teams Cork Tile Floor Layer Relationship Specialty Start Date End Date Harley Goodman DO [address] [facility] [address] PCP - General 03/02/22 documented as of this encounter
--- OUTSIDE RECORDS SUMMARY | 2024-09-26 08:24 | XMS_ITS | Encounter Summary ---
Author Organization [facility] Address [address] [place] [address] Care Team Providers Care Impersonator Character Name Role Phone Harley Goodman DO Primary Care Provider [phone] Encounter Details Date Type Department Care Team (Late st Contact Info) Description 09/18/2024 Orders Only [facility] Pre-Anesthesia Clinic [address] [place] [address] Kb Petersen, RN Social History Tobacco Use Types Packs/Day Years Used Date Smoking Tobacco: Former Cigarettes Smokeless Tobacco: Never Alcohol Use Standard Drinks/Week Comments Never 0 (1 standard drink = 0.6 oz pur e alcohol) [facility] Utilities Answer Date Recorded In the past 12 months has e electric, gas, oil, or water [employer] threatened to shut off services in your [...] time in the past 12 m [facility], were you homeless or living in a long-term (including now)? No 08/13/2024 Hunger Vital Sign [...] Description 09/29/2024 12:30 PM EDT Hospital Encounter [facility] Main Operating Room [address] [place] [address] Last Mcmanus MD [address] [place] [address] [place] [address] 09/29/2024 12:30 PM EDT - 09/29/2024 2:00 PM EDT Surgery [facility] Main Operating Room [address] [place] [address] Last Mcmanus MD [address] [place] [address] [place] [address] TURBT (TRANSURETHRAL RESECTION OF BLADDER TUMOR) [[id number] (CPT )] 10/13/2024 9:00 AM EDT Office Visit [facility] [address] [place] [address] Pinky Bishop MD [address] [facility] [place] [address] Scheduled Procedures Name Priority Associated Diagnoses Date/Ti me TURBT (TRANSURETHRAL RESECTI ON OF BLADDER TUMOR) Lesion of bladder 09/29/2024 12:30 PM EDT documented as of this encounter Visit Diagnoses Not on filedocumented in this encounter Care Teams Impersonator Character Relationship Specialty Start Date End Date Harley Goodman DO [address] [place] [address] PCP - General 03/02/22 documented as of this encounter
--- OUTSIDE RECORDS SUMMARY | 2024-09-26 08:24 | XMS_ITS | Encounter Summary ---
Author Organization [facility] Address [address] [place] [address] Care Team Providers Care Outbound Supervisor Name Role Phone Harley Goodman DO Primary Care Provider [phone] Encounter Details Date Type Department Care Team (Late Contact Info) Description 09/24/2024 Bamboo flowsheet [facility] [address] [facility] 120 [place] [address] Kenneth Aguilar DPM [address] [address] Social History Tobacco Use Types Packs/Day Years Used Date Smoking Tobacco: Never Smokeless Tobacco: Never Alcohol Use Standard Drinks/Week Comments Defer 0 (1 standard drink = 0.6 oz pur e alcohol) Sex and Gender Information Value Date Recorded Sex Assigned at Not on file Legal Sex Male 8:34 PM EDT Gender Identity Not on file Sexual Orientation Not on file documented as of this encounter Plan of Treatment Upcoming Encounters Date Type Department Care Team (Late Contact Info) Description 12/03/2024 8:30 AM EDT Office Visit [facility] 112 [facility] 120 [place] [address] Kenneth Aguilar DPM [address] [address] documented as of this encounter Visit Diagnoses Not on filedocumented in this encounter Care Teams Outbound Supervisor Relationship Specialty Start Date End Date Harley Goodman DO [address] [facility] [place] [phone] PCP - General Internal Medicine 11/07/23 documented as of this encounter
--- OUTSIDE RECORDS SUMMARY | 2024-09-26 08:24 | XMS_ITS | Clinical Summary ---
Author Organization [facility] Address [address] [place] [address] Care Team Providers Care Marine Steamfitter Name Role Phone Harley Goodman Primary Care Provider [phone] Allergies Active Allergy Reactions Criticality Noted Date [...] Inject under the skin. Active HYDROcodone-diony taminophen ([place]) 5-325 MG tablet TAKE 1 TABLET BY [...] Encounters Date Type Department Care Team Description 09/24/2024 8:40 AM EDT Office Visit [facility] [address] [facility] 120 [place] [address] Kenneth Aguilar DPM Diabetes 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, without long-term current use of insulin (HCC) (Primary Dx); Pain due to onychomycosis of toenails of both feet; Xerosis cutis 09/24/2024 Bamboo flowsheet [facility] [address] [facility] [address] [place] [phone] Kenneth Aguilar DPM 09/24/2024 Travel from Last 3 Months Family History [...] EDT Temperature - - Respiratory Rate 18 09/24/2024 8:32 AM EDT Oxygen Saturation - - Inhaled Oxygen Concentration - - Weight 77.6 kg (171 lb) 09/24/2024 8:32 AM EDT Height 170.2 cm (5' 7 ) 09/24/2024 8:32 AM EDT Body Mass Index 26.78 09/24/2024 8:32 AM EDT Plan of Treatment Upcoming Encounters Date Type Department Care Team ([facility] st Contact Info) Description 12/03/2024 8:30 AM EDT Office Visit [facility] 112 [facility] 120 [place] [address] Kenneth Aguilar DPM 3002 [facility] 5 [place] [address] Health Maintenance Due Date Last Done Comments CT Colonography 1951 FIT 1951 FOBT 1951 Sigmoidoscopy 1951 FIT-DNA 08/16/2023 08/15/2020 Colonoscopy 07/11/2031 07/10/2021 Colorectal Cancer Screening 07/11/2031 Pneumococcal Vaccine: 65+ Years Completed 01/17/2018, 11/14/2016, 04/02/2016 Influenza Vaccine Completed 12/12/2023, , 12/15/2021, Additional history exists Insurance [employer] [facility] [place] Care Teams Marine Steamfitter Relationship Specialty Start Date End Date Harley Goodman DO [address] [facility] [place] [address] PCP - General Internal Medicine 11/07/23
--- OUTSIDE RECORDS SUMMARY | 2024-09-26 08:24 | XMS_ITS ---
Author Organization The [facility] Address [address] [place] [address] Care Team Providers Care Casing In Line Feeder Name Role Phone Harley Goodman DO Primary Care Provider [phone] Active Problems Problem Noted Date Diagnosed Date [...] (03/21/2022): Added automatically from request for surgery [id number] Gastroesophageal reflux disease 03/02/2022 Increased immunoglobulin 03/02/2022 [...] check diet Coronary artery disease invo lving [place] coronary artery of [place] heart 09/19/2011 Assessment & Plan (08/13/2024 1:28 [...]
--- OUTSIDE RECORDS SUMMARY | 2024-09-26 08:24 | XMS_ITS | Encounter Summary ---
Author Organization [facility] Address [address] [place] [address] Care Team Providers Care Filenet Architect Name Role Phone Harley Goodman DO Primary Care Provider [phone] Encounter Details Date Type Department Care Team (Late st Contact Info) Description 09/21/2024 Orders Only [facility] Urology [address] [place] [address] Last Mcmanus MD [address] [place] [address] Dr Feliz [address] [place] [address] Malignant neoplasm of urinary bladder, unspecified site (CMS/HCC) (Primary Dx); Urinary tract infection without hematuria, site unspecified; Other specified disorders of bladder Social History Tobacco Use Types Packs/Day Years Used Date Smoking Tobacco: Former Cigarettes Smokeless Tobacco: Never Alcohol Use Standard Drinks/Week Comments Never 0 (1 standard drink = 0.6 oz pur e alcohol) [facility] Utilities Answer Date Recorded In the past 12 months has [employer], gas, oil, or water [employer] threatened to shut off services in your [...] were you homeless or living in a assisted (including now)? No 08/13/2024 Hunger Vital Sign [...] Description 09/29/2024 12:30 PM EDT Hospital Encounter [facility] Main Operating Room [address] [place] [address] Last Mcmanus MD [address] [place] [address] [place] [address] 09/29/2024 12:30 PM EDT - 09/29/2024 2:00 PM EDT Surgery [facility] Main Operating Room [address] [place] [address] Last Mcmanus MD [address] [place] [address] [place] [address] TURBT (TRANSURETHRAL RESECTION OF BLADDER TUMOR) [[id number] (CPT )] 10/13/2024 9:00 AM EDT Office Visit [facility] [address] [place] [address] Pinky Bishop MD [address] [facility] [place] [address] Scheduled Orders Name Type Priority Associated Diagnoses [...] bladder documented in this encounter Care Teams Filenet Architect Relationship Specialty Start Date End Date Harley Goodman DO [address] [facility] [place] [address] PCP - General 03/02/22 documented as of this encounter
--- OUTSIDE RECORDS SUMMARY | 2024-09-26 08:24 | XMS_ITS | Clinical Summary ---
Author Organization [facility] Address [address] [place] [address] Care Team Providers Care Jockey'S Agent Name Role Phone Unavailable Primary Care Provider [...]
--- OUTSIDE RECORDS SUMMARY | 2024-09-26 08:25 | XMS_ITS | Encounter Summary ---
Author Organization [facility] Address [address] [place] [address] Care Team Providers Care Coating Mixer Supervisor Name Role Phone Harley Goodman DO Primary Care Provider [phone] Encounter Details Date Type Department Care Team (Late st Contact Info) Description 09/25/2024 Orders Only [facility] Pre-Anesthesia Clinic [address] [place] [address] Will Pepe, BABYSITTER [address] [place], [place] [id number] Social History Tobacco Use Types Packs/Day Years Used Date Smoking Tobacco: Former Cigarettes Smokeless Tobacco: Never Alcohol Use Standard Drinks/Week Comments Never 0 (1 standard drink = 0.6 oz pur e alcohol) [facility] Utilities Answer Date Recorded In the past 12 months has e [employer], gas, oil, or water [employer] threatened to shut off services in your [...] any time in the past 12 m [facility], were you homeless or living in a usp (including now)? No 08/13/2024 Hunger Vital Sign [...] [facility] Main Operating Room [address] [place] [address] Last Mcmanus MD [address] [place] [address] [place] [address] 09/29/2024 12:30 PM EDT - 09/29/2024 2:00 PM EDT Surgery [facility] Main Operating Room [address] [place] [address] Last Mcmanus MD [address] [place] [address] [place] [phone] TURBT (TRANSURETHRAL RESECTION OF BLADDER TUMOR) [[id number] (CPT )] 10/13/2024 9:00 AM EDT Office Visit [facility] [address] [place] [address] Pinky Bishop MD [address] [facility] [place] [address] Scheduled Procedures Name Priority Associated Diagnoses Date/Ti me TURBT (TRANSURETHRAL RESECTI ON OF BLADDER TUMOR) Lesion of bladder 09/29/2024 12:30 PM EDT documented as of this encounter Visit Diagnoses Not on filedocumented in this encounter Care Teams Coating Mixer Supervisor Relationship Specialty Start Date End Date Harley Goodman DO [address] [facility] [place] [address] PCP - General 03/02/22 documented as of this encounter
--- OUTSIDE RECORDS SUMMARY | 2024-09-26 08:25 | XMS_ITS | Encounter Summary ---
Author Organization [facility] Address [address] [place] [address] Care Team Providers Care Evp And Chief Operating Officer Name Role Phone Harley Goodman DO Primary Care Provider Encounter Details Date Type Department Care Team (Latest Contact Info) Description 09/25/2024 Travel Social History Tobacco Use Types Packs/Day Years Used Date Smoking Tobacco: Former Cigarettes Smokeless Tobacco: Never Alcohol Use Standard Drinks/Week Comments Never 0 (1 standard drink = 0.6 oz pur e alcohol) [facility] Utilities Answer Date Recorded In the [...] any time in the past 12 m [facility], were you homeless or [...] Description 09/29/2024 12:30 PM EDT Hospital Encounter [facility] Main Operating Room [address] [place] [address] Last Mcmanus MD [address] [place] [address] [place] [address] 09/29/2024 12:30 PM EDT - 09/29/2024 2:00 PM EDT Surgery [facility] Main Operating Room [address] [place] [address] Last Mcmanus MD [address] [place] [address] [place] [phone] TURBT (TRANSURETHRAL RESECTION OF BLADDER TUMOR) [[id number] (CPT )] 10/13/2024 9:00 AM EDT Office Visit [facility] [address] [place] [address] Pinky Bishop MD 5[address] [facility] [address] [facility] [place] [address] Scheduled Procedures Name Priority Associated Diagnoses Date/Ti me TURBT (TRANSURETHRAL RESECTI ON OF BLADDER TUMOR) Lesion of bladder 09/29/2024 12:30 PM EDT documented as of this encounter Visit Diagnoses Not on filedocumented in this encounter Care Teams Evp And Chief Operating Officer Relationship Specialty Start Date End Date Harley Goodman DO [address] [place] [address] PCP - General 03/02/22 documented as of this encounter
--- OUTSIDE RECORDS SUMMARY | 2024-09-26 08:25 | XMS_ITS | Clinical Summary ---
Author Organization [facility] Address [address] [place] [address] Care Team Providers Care Cnc Mill And Lathe Operator Name Role Phone Harley Goodman DO Primary Care Provider [phone] Allergies Active Allergy Reactions Criticality Noted Date [...] influenza vaccine, whole virus 01/19/2008 novel influenza (D0C0-75) vaccine, PF 01/27/2009 pneumococcal conjugate (PCV1 3) [...] N ot on file 03/08/2020 Data from: https://www.neighborhoodatlas.medicine.[email or web address].edu/. Last address used for calculation Not [...] - 8.0 g/dL 10/25/2020 10:27 AM EDT [facility] Albumin 4.3 3.9 - 4.9 g/dL 10/25/2020 10:27 AM EDT [facility] Calcium 9.1 8.5 - 10.2 mg/dL 10/25/2020 10:27 AM EDT [facility] Bilirubin, Total 0.7 0.2 - 1.3 mg/dL 10/25/2020 10:27 AM EDT [facility] Alkaline Phosphatase 98 38 - 113 U/L 10/25/2020 10:27 AM EDT [facility] AST 19 14 - 40 U/L 10/25/2020 10:27 AM EDT [facility] Glucose 191(H) 74 - 99 mg/dL 10/25/2020 10:27 AM EDT [facility] Comment: The [place] Diabetes Association (ADA) provides guidance for cutoff [...] Standards of Medical Care in Diabetes 2016, [place] Diabetes Association. Diabetes Care. 2016.39(Suppl 1). BUN 20 9 - 24 mg/dL 10/25/2020 10:27 AM EDT [facility] Creatinine 1.93(H) 0.73 - 1.22 mg/dL 10/25/2020 10:27 AM EDT [facility] Sodium 139 136 - 144 mmol/L 10/25/2020 10:27 AM EDT [facility] Potassium 4.2 3.7 - 5.1 mmol/L 10/25/2020 10:27 AM EDT [facility] Chloride 106(H) 97 - 105 mmol/L 10/25/2020 10:27 AM EDT [facility] CO2 22 22 - 30 mmol/L 10/25/2020 10:27 AM EDT [facility] Anion Gap 11 9 - 18 mmol/L 10/25/2020 10:27 AM EDT [facility] ALT 16 10 - 54 U/L 10/25/2020 10:27 AM EDT [facility] eGFR- 42 10/25/2020 10:27 AM EDT [facility] eGFR-All Other Races 35 . 10/25/2020 10:27 AM EDT [facility] Comment: eGFR (Estimated GFR) Units of [...] us Agustin Walker MD LABORATORY Final Result [address] from Last 3 Months or Most Recently Relevant to Health Maintenance Insurance MEDICARE [facility] MEDICARE SUPPLEMENT Care Teams Cnc Mill And Lathe Operator Relationship Specialty Start Date End Date Harley Goodman DO [address] [place] [address] PCP - General Internal Medicine 07/18/18
--- OUTSIDE RECORDS SUMMARY | 2024-09-26 08:25 | XMS_ITS | Encounter Summary ---
Author Organization [facility] Address [address] [place] [address] Phone Care Team Providers Care Wire Steward Name Role Phone Unavailable Primary Care Provider Unavailabl e Encounter Details Date Type Department Care Team (Late st Contact Info) Description 01/16/2022 Orders Only [facility] [address] [place] [address] Conversion, Onbase Social History Tobacco Use Types [...]
--- OUTSIDE RECORDS SUMMARY | 2024-09-26 08:25 | XMS_ITS | Encounter Summary ---
Author Organization [facility] Address [address] [place] [address] Care Team Providers Care Manager Of Construction Name Role Phone Harley Goodman DO Primary Care Provider [phone] Encounter Details Date Type Department Care Team (Latest Contact Info) Description 09/24/2024 Travel Social History Tobacco Use Types Packs/Day [...] EDT Office Visit [facility] 112 [facility] 120 [place] [address] Kenneth Aguilar, DPM 3006 [facility] 5 [place] [address] documented as of this encounter Visit Diagnoses Not on filedocumented in this encounter Care Teams Manager Of Construction Relationship Specialty Start Date End Date Harley Goodman DO [address] [facility] [place] [address] PCP - General Internal Medicine 11/07/23 documented as of this encounter
--- OUTSIDE RECORDS SUMMARY | 2024-09-26 08:25 | XMS_ITS | Encounter Summary ---
Author Organization [facility] Address [address] [place] [address] Care Team Providers Care Hydropress Operator Name Role Phone Harley Goodman DO Primary Care Provider [phone] Encounter Details Date Type Department Care Team (Late st Contact Info) Description 09/25/2024 Orders Only [facility] Pre-Anesthesia Clinic [address] [place] [address] Ember Adams, ALBINO Social History Tobacco Use Types Packs/Day Years Used Date Smoking Tobacco: Former Cigarettes Smokeless Tobacco: Never Alcohol Use Standard Drinks/Week Comments Never 0 (1 standard drink = 0.6 oz pur e alcohol) [facility] Utilities Answer Date Recorded In the past 12 months has e electric, gas, oil, or water [employer] threatened to shut off services in your [...] any time in the past 12 m [facility], were you homeless or living in a custodial (including now)? No 08/13/2024 Hunger Vital Sign [...] Description 09/29/2024 12:30 PM EDT Hospital Encounter [facility] Main Operating Room [address] [place] [address] Last Mcmanus MD [address] [place] [address] [place] [address] 09/29/2024 12:30 PM EDT - 09/29/2024 2:00 PM EDT Surgery [facility] Main Operating Room [address] [place] [phone] Last Mcmanus MD [address] [place] [address] [place] [address] TURBT (TRANSURETHRAL RESECTION OF BLADDER TUMOR) [[id number] (CPT )] 10/13/2024 9:00 AM EDT Office Visit [facility] [address] [place] [address] Pinky Bishop MD [address] [facility] [place] [address] Scheduled Procedures Name Priority Associated Diagnoses Date/Ti me TURBT (TRANSURETHRAL RESECTI ON OF BLADDER TUMOR) Lesion of bladder 09/29/2024 12:30 PM EDT documented as of this encounter Visit Diagnoses Not on filedocumented in this encounter Care Teams Hydropress Operator Relationship Specialty Start Date End Date Harley Goodman DO [address] [place] [address] PCP - General 03/02/22 documented as of this encounter
--- OUTSIDE RECORDS SUMMARY | 2024-09-26 08:25 | XMS_ITS | Encounter Summary ---
Author Organization [facility] Address [address] [place] [address] Care Team Providers Care Automobile Mechanic Supervisor Name Role Phone Harley Goodman DO Primary Care Provider [phone] Encounter Details Date Type Department Care Team (Late st Contact Info) Description 09/25/[address] [facility] Pre-Anesthesia Clinic [address] [place] [address] Kb Petersen, RN Social History Tobacco Use Types Packs/Day Years Used Date Smoking Tobacco: Former Cigarettes Smokeless Tobacco: Never Alcohol Use Standard Drinks/Week Comments Never 0 (1 standard drink = 0.6 oz pur e alcohol) [facility] Utilities Answer Date Recorded In the past 12 months has e electric, gas, oil, or water [employer] threatened to shut off services in [...] any time in the past 12 m [facility], were you homeless or living in a [...] Description 09/29/2024 12:30 PM EDT Hospital Encounter [facility] Main Operating Room [address] [place] [address] Last Mcmanus MD [address] [place] [address] [place] [address] 09/29/2024 12:30 PM EDT - 09/29/2024 2:00 PM EDT Surgery [facility] Main Operating Room [address] [place] [address] Last Mcmanus MD [address] [place] [address] [place] [address] TURBT (TRANSURETHRAL RESECTION OF BLADDER TUMOR) [16050 (CPT )] 10/13/2024 9:00 AM EDT Office Visit [facility] [address] [place] [address] Pinky Bishop MD [address] [facility] [place] [phone] Scheduled Procedures Name Priority Associated Diagnoses Date/Ti me TURBT (TRANSURETHRAL RESECTI ON OF BLADDER TUMOR) Lesion of bladder 09/29/2024 12:30 PM EDT documented as of this encounter Visit Diagnoses Not on filedocumented in this encounter Care Teams Automobile Mechanic Supervisor Relationship Specialty Start Date End Date Harley Goodman DO [address] [place] [phone] PCP - General 03/02/22 documented as of this encounter
--- OUTSIDE RECORDS SUMMARY | 2024-09-26 08:25 | XMS_ITS | Clinical Summary ---
Author Organization [facility] Address [address] [place] [address] Phone Care Team Providers Care Radar Repairer Name Role Phone Unavailable Primary Care Provider [...] age to complete this topic HPV Vaccines (No Doses Required) Completed Hepatitis A Vaccines Aged Out No long [...]
--- OUTSIDE RECORDS SUMMARY | 2024-09-26 08:25 | XMS_ITS | Encounter Summary ---
Author Organization [facility] Address [facility] [place] [id number] Care Team Providers Care Project Internship Name Role Phone Harley Goodman DO Primary Care Provider [phone] Source Comments In the event this information is protected by the Federal Confidentiality of Alcohol and Drug AbusePatient Records regulations: The Federal rules restrict any use of the information to criminally investigate or prosecute any alcohol or drug abuse patient.[facility] Encounter Details Date Type Department Care [...] on filedocumented in this encounter Care Teams Project Internship Relationship Specialty Start Date End Date Harley Goodman DO [address] [facility] [place] [id number] PCP - General Internal Medicine 07/18/18 documented as of this encounter
--- OUTSIDE RECORDS SUMMARY | 2024-09-26 08:25 | XMS_ITS | Encounter Summary ---
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 Utilities Answer Date Recorded In the past 12 months has [facility] [email or web address], gas, oil, or water [employer] threatened to shut off services in your [...] any time in the past [address] [facility], were you homeless or living in a [...] Description 09/29/2024 12:30 PM EDT Hospital Encounter [facility] Main Operating Room [address] [place] [address] Last Mcmanus MD [address] [place] [address] [place] [address] 09/29/2024 12:30 PM EDT - 09/29/2024 2:00 PM EDT Surgery [facility] Main Operating Room [address] [place] [address] Last Mcmanus MD [address] [place] [address] [place] [address] TURBT (TRANSURETHRAL RESECTION OF BLADDER TUMOR) [33597 (CPT )] 10/13/2024 9:00 AM EDT Office Visit [facility] Heart at [facility] [address] [place] [address] Pinky Bishop MD [address] [facility] [phone] Scheduled Orders Name Type Priority Associated Diagnoses Orde r Schedule Hemoglobin A1c Lab Routine 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) Expected: 09/25/2024 (Approximate), Expires: 09/25/2025 Scheduled Procedures Name Priority Associated Diagnoses Date/Ti me TURBT (TRANSURETHRAL RESECTI ON OF BLADDER TUMOR) Lesion of bladder 09/29/2024 12:30 PM EDT documented as of this encounter Visit Diagnoses Diagnosis Lesion of bladder- Primary Unspecified disorder of bladder 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
--- OUTSIDE RECORDS SUMMARY | 2024-09-26 08:27 | XMS_ITS | CCD ---
Author Organization [facility] Care Team Providers Care Curriculum Designer Name Role Phone ELTAHAWY, EHAB A Admitting Unavailable ELTAHAWY, EHAB A Attending Unavailable HARLEY CRESPO Referring Unavailable HARLEY CRESPO Primary Care Unavailable ELTAHAWY, NETOAB A Surgeon Unavailable ID Procedure Practitioner Unavailab le ELTAHAWY, EHAB A Admitting Unavailable ELTAADARSH, EHAB A Attending Unavailable HARLEY CRESPO Referring Unavailable HARLEY CRESPO Primary Care Unavailable Viky Kwong Unavailable Kingsley Good Unavailable Shannon Escobar Unavailable HARLEY CRESPO Primary Care Physician Harley Crespo DO Primary Care Provider DO Harley Crespo Primary Care Provider [phone] JULY Kwong Attending Provider DO Gagan Shahid Admit Provider DO Gagan Shahid Attending Provider [phone] PINKY BISHOP Consulting [...] Unavailable LATISHA, KINGSLEY Consulting Unavailable BALL, DR ACRVALHO Admitting Unavailable BALL, DR CARVALHO Attending Unavailable [...] Provider Lani LEMUS, Tamara Álvarez Attending Provider Harley Crespo DO Primary Care Provider Lani LEMUS, Tamara Álvarez Attending Provider Jason LARKIN Admitting Unavailable LARKIN, Jason Sanchez Referring Unavailable CHAYA, Jason Sanchez Attending Unavailable CHAYA, Jason Sanchez Attending Unavailable LARKIN, Jason Sanchez Admitting Unavailable HARLEY CRESPO Referring Unavailable CHAYA, Jason Sanchez Attending Unavailable HORANI, DEJUAN Referring Unavailable HORANI, DEJUAN Referring Unavailable MOUKARBEL, LUISITO Referring Unavailable JENNI, KEVIN Referring Unavailable JENNI, KEVIN Referring Unavailable JENNI, KEVIN Referring Unavailable JENNI, KEVIN Referring Unavailable SELLERS, ARAMIS Attending Unavailable HORANI, DEJUAN Admitting Unavailable KATHEMALATHA MEJIA Referring Unavailable NESTORHEIDY Attending Unavailable HORANI, DEJUAN Admitting Unavailable MOUKARBELLUISITO Referring Unavailable JENNIKEVIN Molina Referring Unavailable EKWENNA, OBI Referring Unavailable EKWENNA, OBI Referring Unavailable JENNI, KEVIN Referring Unavailable CRISTOPHER, EMEKA Referring Unavailable EKWENNA, OBI Attending Unavailable CRISTOPHER, EMEKA Referring Unavailable JENNI, KEVIN Referring Unavailable JENNI, KEVIN Referring Unavailable JENNI, KEVIN Referring Unavailable JENNI, KEVIN Referring Unavailable JENNI, KEVIN Referring Unavailable CRISTOPHER, EMEKA Referring Unavailable LAURA HANBridgett Attending Unavailable HORANI, DEJUAN Admitting Unavailable KATARZYNA YOUNGBLOOD Referring Unavailable YOSTYFN Referring Unavailable AMERICO, BONAVENTURE Referring Unavailable AMERICO, BONAVENTURE Referring Unavailable TATIANNA HAYWARD Referring Unavailable JENNI, KEVIN Referring Unavailable JENNI, KEVIN Referring Unavailable JENNI, KEVIN Attending Unavailable JENNI KEVIN Referring Unavailable ELTAHAWY, EHAB Attending Unavailable CRISTOPHER, EMEKA Referring Unavailable CRISTOPHER, EMEKA Referring Unavailable CRISTOPHER, EMEKA Referring Unavailable CRISTOPHER, EMEKA Referring Unavailable YESY, CHRISTOPHER Referring Unavailable YESY, CHRISTOPHER Referring Unavailable JENNI, KEVIN Referring Unavailable ELTAHAWY, EHAB Attending Unavailable JENNI, KEVIN Referring Unavailable Harley Crespo DO Primary Care Provider Latisha, Kingsley Admitting Unavailable Latisha, Kingsley Attending Unavailable Ball, Harley Admitting Unavailable Ball, Harley Attending Unavailable Ball, Harley Primary Care Unavailable Lani, Tamara Álvarez Admitting Unavail able Lani, Tamara Álvarez Attending Unavail able NON STAFF Admitting Unavailable NON STAFF Attending Unavailable KENNETH TAVERA Attending Unavailable LIANG, KENNETH Mota Attending Unavailable LIANG, KENNETH Mota Attending Unavailable LIANG, KENNETH Mota Attending Unavailable LIANG, KENNETH Mota Attending Unavailable Allergies Allergy Classification Reported Allergen(s) Allergy Type Date of Onset Reaction(s) Facility (1 source) 93481,00; Translations: [Unknown] Propensity to adverse reactions (disorder) 02-10-20 09 [facility] Repository (8 sources) semaglutide; Translations: [semaglutide] Allergy to substance [facility] above: constipation (1 source) No Known Medication Allergies; Translations: [No Known Medication Allergies] Propensity to adverse reactions (disorder) [facility] Repository Medications Current Medications [...] / HYDROcodone bitartrate 5 mg oral tablet (9 sources) Opioid Agonist Start: 08-14-2022 take 1 tablet by mouth every four to six hours as needed for pain HYDROcodone-acetaminophen ([place]) 5-325 MG tablet TAKE 1 TABLET BY MOUTH EVERY 4 TO 6 HOURS NEEDED FOR PAIN 08/14/2022 Active amLODIPine 5 mg oral tablet (20 sources) Dihydropyridine Calcium Channel Jason Start: 08-25-2024 take 1 tablet by mouth once daily Amlodipine 5 mg tablet Active 5 MG PO Daily August 25, 2024 12:00am Start: 09-07-2021 take 1 tablet by bhavik th in the morning amLODIPine (Norvasc) 10 MG tablet Take 10 mg by mouth in the morning. as directed. 07/14/2022 Active Start: 06-22-2020 End: 06-18-2023 take 2 [...] 2020 4:21am atorvastatin 80 mg oral tablet (9 sources) HMG-CoA Reductase Inhibitor atorvastatin (Lipitor) 80 MG tablet 1 (one) time each day at the same time. Active bumetanide 0.5 mg oral tablet (20 sources) Loop Diuretic Start: 3 End: 4 take 1 tablet by mouth in the morning bumetanide (Bumex) 0.5 MG tablet Take 0.5 mg by mouth in the morning. 04/06/2022 Active carvedilol 12.5 mg oral tablet (20 sources) alpha-Adrenergic Jason, beta-Adrenergic Jason Start: 2 End: 4 take 1 tablet by mouth twice daily [...] daily with meals. cholecalciferol 0.025 mg oral capsule (20 sources) [...] Date: 08/03/24 Status: Ordered Repeat number: 1 inject 4 [IU] by sub cutaneous injection once daily at mealtime NovoLOG FlexPen 100 UNIT/ML 10-12 units according to meal size; 4 units for snack. Corrective scale 1:20 ac, tid (HS >200 1/2 dose) Subcutaneous ac, hs (expect up to 40 units/day) Active inject 4 [IU] by sub cutaneous injection at mealtime NovoLOG FlexPen 100 UNIT/ML 10-12 units according to meal size; 4 units [...] ml insulin glargine 100 unt/ml pen injector (9 sources) Insulin Analog insulin glargine (Lantus SoloStar) [...] y. insulin lispro (HumaLOG) 100 UNIT/ML injection (9 sources) insulin lispro (HumaLOG) 100 UNIT/ML injection [...] End: 05-08-2024 take 1 tablet by mouth in the morning, then take 1 tablet by mouth every twenty-four hours at bedtime isosorbide mononitrate ER (Imdur) 60 MG 24 hr tablet Take 60 mg by mouth in the morning and 60 mg before bedtime. 08/02/2022 Active Start: 06-22-2020 End: 01-17-2022 take 1 tablet [...] mL) pen injector Active 0 SUBCUT .COMPLEX 9 April 30, 2024 12:00am inject 0.6mg subcutaneously [...] tablet by mouth once daily at breakfast pantoprazole (ProtoNix) 40 MG EC tablet TAKE 1 TABLET BY MOUTH DAILY ON AN EMPTY STOMACH FOLLOWED BY BREAKFAST 30 MINUTES AFTER 07/17/2022 Active 12 hr ranolazine 500 mg extended release [...] sources) take 1 tablet by mouth once gr y Vitamin D 25 MCG (1000 UT) [...] 24, 2020 12:00am July 11, 2020 5:52pm ciprofloxacin 500 mg oral tablet (2 sources) Quinolone Antimicrobial Start: 08-03-2024 take 1 tablet by mouth once daily Cipro 500 mg Tab 500 mg = 1 tab(s), Oral, Daily, take one tab day before procedure and one tab after procedure, # 2 tab(s), Refills(s) 0, Pharmacy: [facility]/pharmacy #[id number], 169, cm, 08/03/24 13:56:00 EDT, Height/Length Dosing, 85.8, kg, 08/03/24 13:56:00 EDT, Weight Dosing Start Date: 08/03/24 Status: Ordered Quantity: 2.0 Unit: tab(s) Repeat number: 1 dapagliflozin 10 mg oral tablet (20 sources) Sodium-Glucose Cotransporter 2 Inhibitor Start: 06-18-2023 End: 06-18-2023 take 1 tablet [...] 2023 8:42am take 1 capsule by mo [facility] every twenty-four hours Colace 100 MG [...] 7:52pm Start: 09-07-2021 take 1 tablet by [facility] twice daily famotidine 20 mg Tab [...] mL) Insulin Pen (17 sources) Start: End: inject 5 [IU] by [...] 12:00am July 10, 2021 9:59am triamcinolone acetonide 0.54254 mg/mg topical ointment (1 source) Corticosteroid triamcinolone [...] [Palpitations] Onset: 1 Resolved: 2 Episodic Cataract (9 sources) Bilateral age-related nuclear cataracts; Translations: [Age-related [...] 25%, LVH, normal RV size/function - 07/2024,BiV CAUSTIC MIXER-D 01/2023 Coronary atherosclerosis and other heart disease (20 sources) Multi vessel coronary artery disease; Translations: [Atherosclerotic heart disease of [place] coronary artery without angina pectoris] Onset: 3 09-07-2021 Chronic Comment on above: CABG x 5 - 1995PCI/s tent x 6 CABG x 5 - 1995PCI/s tent x 8 CABG x - 1995,PCI/ stent x 8,Patent SVG x3 [...] disease] Onset: 1 Resolved: 2 Chronic Mycoses (6 sources) Pain in toe; Translations: [Tinea unguium] [...] sources) Long-term current use of insulin; Translations: [longterm (current) use of insulin] Episodic Other aftercare (11 sources) longterm (current) use of insulin; Translations: [security specialist current use of insulin Z79.4] Onset: 1 [...] 4 09-07-2021 Episodic Comment on above: PSA: .37 - 07/2023 Other skin disorders (4 sources) Asteatosis cutis; Translations: [Xerosis cutis] 01-23-2024 Episodic Other skin disorders (2 sources) Changes in skin texture; Translations: [Changes in skin texture] 08-03-2024 Episodic Peripheral and visceral atherosclerosis (3 sources) Intermittent [...] [Urinary tract infection, site not specified] Onset: 5 Episodic Past or Other Problems Problem Classification [...] that caused by tuberculosis or sexually transmitteddisease) (9 sources) Blepharitis of upper and lower eyelids of bilateral eyes; Translations: [Unspecified blepharitis right eye, upper and lower eyelids] Onset: 10-12-2022 10-12-2022 Episodic Other aftercare (1 source) longterm (current) use of aspirin; Translations: [[facility] CURRENT USE OF ASPIRIN] Onset: 04-03-2022 Episodic Other aftercare (1 source) 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 Thank you This phone message was created by the Ambulatory float staff. If you need legal support analyst follow up regarding this patient, please make your appropriate clinic staff member aware. Thank you. Normal [facility] Urine Cultureon 09-21-2024 Bacteria identified Cx Nom (U) >100,000 colonies/ml mixed bacterial skin contaminants 2 Days PERFORMED BY: [place] [address] PATHOLOGIST CLEANING AND MAINTENANCE WORKER CARSON ADAMES M.D. Normal [facility] Comment on above: Performed By: #### C UU #### [place] [id number] [facility] Orders Onlyon 09-18-2024 Orders Only [id number] Lani Lizama 1950 [facility] Provider Department Center 09/18/20242003YING BADILLOGAGAN [facility] Family History Problem Relation Age of Onset Heart attack Mother Other Father Other Brother Heart attack Maternal Grandmother Heart attack Maternal Grandfather Family Status - Relation Status Age at Mother Father Brother Maternal Grandmother Maternal Grandfather Normal [facility] Orders Onlyon 09-02-2024 Orders Only [id number] Lani Lizama 1950 M Date Provider Department Center 09/02/20242003LATONYA BADILLO [facility] C Family History Problem Relation Age of Onset Heart attack Mother Other Father Other Brother Heart attack Maternal Grandmother Heart attack Maternal Grandfather Family Status - Relation Status Age at Mother Father Brother Maternal Grandmother Maternal Grandfather Normal [facility] APTTon 08-28-2024 ACTIVATED PARTIAL THROMBOPLASTIN TIME IN PPP BY COAGULATION ASSAY 29.3 Seconds Normal 25.0-35.0 [facility] Comment on above: Result Comment: Clin ical significance of the APTT is questionable in the presence of heparin. Performed By: #### L [id number] #### [facility] (BEAKER) [address] [place] [address] CBC WITH AUTO DIFFERENTIALon 08-28-2024 Basophils (Bld) [#/Vol] 0.09 10*3/uL Normal 0.00-0.20 [facility] Comment on above: Performed By: #### L [id number] #### [facility] (BEAKER) [address] [place] [address] Basophils/100 WBC (Bld) 0.9 % Normal 0.0-1.0 [facility] Comment on above: Performed By: #### L [id number] #### [facility] ([facility] [address] [place] [address] Eosinophils (Bld) [#/Vol] 0.17 10*3/uL Normal 0.00-0.50 [facility] Comment on above: Performed By: #### L [id number] #### [facility] ([facility] [address] [place] [address] Eosinophils/100 WBC (Bld) 1.8 % Normal 0.0-6.0 [facility] Comment on above: Performed By: #### L [id number] #### [facility] ([facility] [address] [place] [address] Erythrocyte distribution width (RBC) [Ratio] 14.1 % Normal 11.5-15.0 [facility] Comment on above: Performed By: #### L [id number] #### [facility] ([facility] [address] [place] [address] ERYTHROCYTE MEAN CORPUSCULAR HEMOGLOBIN CONCENTRATION (G/DL) BY AUTOMATED 32.1 g/dL Normal 32.0-35.0 [facility] Comment on above: Performed By: #### L [id number] #### [facility] ([facility] [address] [place] [address] Hematocrit (Bld) [Volume fraction] 44.8 % Normal 39.0-50.0 [facility] Comment on above: Performed By: #### L [id number] #### [facility] ([facility] [address] [place] [address] Hemoglobin (Bld) [Mass/Vol] 14.4 g/dL Normal 13.0-17.0 [facility] Comment on above: Performed By: #### L [id number] #### [facility] [address] [facility] [facility] [address] Immature granulocytes (Bld) [#/Vol] 0.06 10*3/uL Normal 0.00-0.20 [facility] Comment on above: Performed By: #### L [id number] #### [facility] ([facility] [address] [place] [address] Immature granulocytes/100 WBC (Bld) 0.6 % Normal 0.0-1.0 [facility] Comment on above: Performed By: #### L [id number] #### [facility] ([facility] [address] [facility] [address] Lymphocytes (Bld) [#/Vol] 1.81 10*3/uL Normal 1.20-4.00 [facility] Comment on above: Performed By: #### L [id number] #### [facility] ([facility] [address] [place] [address] Lymphocytes/100 WBC (Bld) 18.9 % Low 20.0-45.0 [facility] Comment on above: Performed By: #### L [id number] #### [facility] ([facility] [address] [facility] [place] [address] MCH (RBC) [Entitic mass] 29.2 pg Normal 27.0-33.0 [facility] Comment on above: Performed By: #### L [id number] #### [facility] ([facility] [address] [place] [address] MCV (RBC) [Entitic vol] 90.9 fL Normal 82.0-98.0 [facility] Comment on above: Performed By: #### L [id number] #### [facility] ([facility] [address] [facility] [place] [place] [address] Monocytes (Bld) [#/Vol] 0.76 10*3/uL Normal 0.10-1.00 [facility] Comment on above: Performed By: #### L [id number] #### [facility] ([facility] [address] [facility] [address] Monocytes/100 WBC (Bld) 7.9 % Normal 5.0-12.0 [facility] Comment on above: Performed By: #### L [id number] #### [facility] ([facility] [address] [place] [address] Neutrophils (Bld) [#/Vol] 6.71 10*3/uL Normal 1.60-7.60 [facility] Comment on above: Performed By: #### L [id number] #### [facility] ([facility] [address] [place] [address] Neutrophils/100 WBC (Bld) 69.9 % Normal 40.0-72.0 [facility] Comment on above: Performed By: #### L [id number] #### [facility] ([facility] [address] [place] [address] NRBC (PER 100 WBCS) BY AUTOMATED COUNT 0.0 % Normal 0 [facility] Comment on above: Performed By: #### L [id number] #### [facility] ([facility] [address] [place] [address] PLATELETS (10*3/UL) IN BLOOD AUTOMATED COUNT 278 10*3/uL Normal 150-400 [facility] Comment on above: Performed By: #### L [id number] #### [facility] ([facility] [address] [place] [address] RBC (Bld) [#/Vol] 4.93 10*6/uL Normal 4.20-5.70 [facility] Comment on above: Performed By: #### L [id number] #### [facility] ([facility] [address] [place] [address] WBC (Bld) [#/Vol] 9.60 10*3/uL Normal 4.00-10.60 [facility] Comment on above: Performed By: #### L [id number] #### [facility] ([facility] [address] [place] [address] COMPREHENSIVE METABOLIC PANE Mike 08-28-2024 Albumin [Mass/Vol] 4.5 g/dL Normal 3.5-5.7 [facility] Comment on above: Performed By: #### L [id number] #### [facility] (BEAKER) [address] [place] [address] ALP [Catalytic activity/Vol] 117 U/L High 34-104 [facility] Comment on above: Performed By: #### L [id number] #### [facility] (BEAKER) [address] [place] [address] ALT [Catalytic activity/Vol] 17 U/L Normal 7-52 [facility] Comment on above: Performed By: #### L [id number] #### [facility] (BEAKER) [address] [place] [address] Anion gap [Moles/Vol] 11 mmol/L Normal 7-20 [facility] Comment on above: Performed By: #### L [id number] #### [facility] (BEAKER) [address] [place] [address] AST [Catalytic activity/Vol] 20 U/L Normal 13-39 [facility] Comment on above: Performed By: #### L [id number] #### [facility] (BEAKER) [address] [place] [address] Bilirubin [Mass/Vol] 0.6 mg/dL Normal 0.3-1.0 [facility] Comment on above: Performed By: #### L [id number] #### [facility] (BEAKER) [address] [place] [address] Calcium [Mass/Vol] 9.6 mg/dL Normal 8.6-10.3 [facility] Comment on above: Performed By: #### L [id number] #### [facility] (BEAKER) [address] [place] [address] Chloride [Moles/Vol] 105 mmol/L Normal 98-107 [facility] Comment on above: Performed By: #### L [id number] #### [facility] (BEAKER) [address] [place] [address] CO2 [Moles/Vol] 28 mmol/L Normal 21-31 [facility] Comment on above: Performed By: #### L [id number] #### [facility] ([facility] [address] [place] [address] Creatinine [Mass/Vol] 1.95 mg/dL High 0.70-1.30 [facility] Comment on above: Performed By: #### L [id number] #### [facility] ([facility] [address] [place] [address] GLOMERULAR FILTRATION RATE ML/MIN/1.73 SQ M.PREDICTED 35.9 mL/min/1.73m*2 Low >60.0 [facility] Comment on above: Result Comment: [facility]???s estimated glomerular filtration rate (eGFR) [...] group of individuals. Performed By: #### L [id number] #### [facility] ([facility] [address] [place] [address] Glucose [Mass/Vol] 185 mg/dL High 70-100 [facility] Comment on above: Performed By: #### L [id number] #### [facility] ([facility] [address] [place] [address] Potassium [Moles/Vol] 5.9 mmol/L High 3.5-5.1 [facility] Comment on above: Performed By: #### L [id number] #### [facility] ([facility] [address] [place] [address] Protein [Mass/Vol] 7.7 g/dL Normal 6.0-8.3 [facility] Comment on above: Performed By: #### L [id number] #### [facility] (BEAKER) [address] [place] [address] Sodium [Moles/Vol] 138 mmol/L Normal 136-145 [facility] Comment on above: Performed By: #### L [id number] #### [facility] (BEAKER) [address] [place] [address] Urea nitrogen [Mass/Vol] 30 mg/dL High 7-25 [facility] Comment on above: Performed By: #### L [id number] #### [facility] (BEAKER) [address] [place] [address] UREA NITROGEN/CREATININE (MASS RATIO) IN SER/PLAS 15.4 Normal [facility] Comment on above: Performed By: #### L [id number] #### [facility] (BEAKER) [address] [place] [address] Labon 08-28-2024 Lab [id number] Lani Lizama 1950 [facility] Provider Department Center 08/28/2024 2245-[facility] OPD LAB RESOURCE [facility] OPD [facility] C Family History Problem Relation Age of Onset Heart attack Mother Other Father Other Brother Heart attack Maternal Grandmother Heart attack Maternal Grandfather Family Status - Relation Status Age at Mother Father Brother Maternal Grandmother Maternal Grandfather Normal [facility] Office Visiton 08-28-2024 Follow-up visit [id number] Lani Lizama 1950 [facility] Provider Department Center 08/28/2024 263-EKWENNA, OBI [facility] URO Second Fl Family History Problem Relation Age of Onset Heart attack Mother Other Father Other Brother Heart attack Maternal Grandmother Heart attack Maternal Grandfather Family Status - Relation Status Age at Mother Father Brother Maternal Grandmother Maternal Grandfather Level of Service:12301 ID OFFICE/OUTPATIENT ESTABLISHED MOD MDM 30 MIN Normal [facility] PROTIME-INRon 08-28-2024 INR IN PPP BY COAGULATION ASSAY 1.10 Normal 0.90-1.10 [facility] Comment on [...] RANGE. CHEST 1995;108:[id number]. Performed By: #### L [id number] #### [facility] ([facility] [address] [place] [address] PROTHROMBIN TIME (PT) IN PPP BY COAGULATION ASSAY 14.2 Seconds Normal 12.3-14.8 [facility] Comment on above: Performed By: #### L [id number] #### [facility] ([facility] [address] [place] [address] PSA, SCREENINGon 08-28-2024 PROSTATE SPECIFIC AG (NG/ML) IN SER/PLAS 1.5 ng/mL Normal 0.4-4 [facility] Comment on above: Performed By: #### L [id number] #### [facility] ([facility] [address] [place] [address] URINE CULTURE, ROUTINEon Bacteria identified Cx Nom (U) <10,000 CFU/ML No Significant Growth Normal [facility] Comment on above: Performed By: #### L [id number] ####[facility] ([facility] [place] [address] Laboratory - Chemistry and C hemistry - challengeon 08-27-2024 Bilirubin Ql (U) Negative NEGATIVE [facility] Glucose (U) [Mass/Vol] mg/dL [facility] Ketones Ql (U) Negative NEGATIVE [facility] pH (U) 6.0 [pH] 5.0-9.0 [facility] Specific gravity (U) [Rel density] 1.025 1.005-1.[address] [facility] Urobilinogen Qn (U) 1.0 {Luisito'U}/dL 0.2-1.0 [facility] Laboratory - Specimen inform ationon 08-27-2024 Appearance (U) SL CLOUDY CLEAR [facility] Color (U) YELLOW YELLOW [facility] Laboratory - Urinalysison Leukocyte esterase Test strip Ql (U) MODERATE Abnormal NEGATIVE [facility] Nitrite Ql (U) Negative NEGATIVE [facility] Protein Ql (U) >=300 mg/dL Abnormal NEG/TRACE [facility] No Panel Informationon 08-27 Urine Occult Blood LARGE Abnormal NEGATIVE [facility] Urine Cultureon 08-27-2024 Bacteria identified Cx Nom (U) <9,000 colonies/ml mixed bacterial skin contaminants 2 Days PERFORMED BY: [place] [address] PATHOLOGIST CLEANING AND MAINTENANCE WORKER CARSON ADAMES M.D. Normal [facility] Comment on above: Performed By: #### C UU #### [address] Office Visiton 08-20-2024 Follow-up visit [id number] Lani Lizama 1950 M Niurka Provider Department Center 08/20/2024 [facility] Family History Problem Relation Age of Onset Heart attack Mother Other Father Other Brother Heart attack Maternal Grandmother Heart attack Maternal Grandfather Family Status - Relation Status Age at Mother Father Brother Maternal Grandmother Maternal Grandfather Level of Service:95396 ID OFFICE/OUTPATIENT ESTABLISHED MOD MDM 30 MIN Normal [facility] 30on 08-14-2024 30 The patient [...] hemodynamic stability Outcome: Adequate for Discharge Normal [facility] 30 Lexiscan stress test Patient [...] and hemodynamically stable Full final report from intramural director to follow. Juli Salazar RN [facility] Cardiovascular Stress Lab Normal [facility] HIGH SENSITIVITY TROPONIN Io n 08-14-2024 HS TROPONIN I (NG/L) 160 ng/L Critically high <20 [facility] Comment on above: Performed By: #### L [id number] #### [facility] HOSPITAL LAB (BEAKER) [address] [place] [address] NURSNOTEon 08-14-2024 NURSNOTE Patient off the unit at 8:23 am for ECHO and stress test, returned to unit at 12:05 pm. Normal [facility] Orders Onlyon 08-14-2024 Orders Only [id number] Lani Lizama 1950 M Date Provider Department Center 08/14/2024 KEVIN DEMPSEY [facility] CARD PR HeartVAS Family History Problem Relation Age of Onset Heart attack Mother Other Father Other Brother Heart attack Maternal Grandmother Heart attack Maternal Grandfather Family Status - Relation Status Age at Mother Father Brother Maternal Grandmother Maternal Grandfather Normal [facility] POCT GLUCOSE METER UNSOLICIT ED RESULTSon 08-14-2024 Glucose [Mass/Vol] 155 mg/dL High 70-[address] [facility] Comment on above: Order Comment: Waive d Testing in the ED is performed under the ED CLIA certificate #[id number]. Result Comment: dcun dic Performed By: #### L [id number] #### [facility] (BEAKER) [address] [place] [address] Glucose [Mass/Vol] 251 mg/dL High 70-105 [facility] Comment on above: Order Comment: Waive d Testing in the ED is performed under the ED CLIA certificate #[id number]. Result Comment: jdlu gol Performed By: #### L [id number] #### [facility] (BEAKER) [address] [place] [address] Glucose [Mass/Vol] 187 mg/dL High 70-105 [facility] Comment on above: Order Comment: Waive d Testing in the ED is performed under the ED CLIA certificate #[id number]. Result Comment: jdlu gol Performed By: #### L [id number] ####[facility] (AKER)[address] [place] [address] 30on 08-13-2024 30 The patient is Moder [...] and behaviors that affect risk of falls Young Harris fall precautions as indicated by assessment Educate [...] dysrhythmias or at baseline Outcome: Progressing Normal [facility] Basophils Auto (Bld) [#/Vol] on 08-13-2024 Basophils (Bld) [#/Vol] Automated basophil count 0.0-0.1 [facility] Basophils/100 WBC Auto (Bld) on 08-13-2024 Basophils/100 WBC (Bld) Automated basophil % 0.2-2.0 [facility] CBC WITH AUTO DIFFERENTIALon 08-13-2024 Basophils (Bld) [#/Vol] 0.05 10*3/uL Normal 0.00-0.20 [facility] Comment on above: Performed By: #### L [id number] #### [facility] HOSPITAL LAB (BEAKER) [address] [place] [address] Basophils/100 WBC (Bld) 0.7 % Normal 0.0-1.0 [facility] Comment on above: Performed By: #### L [id number] #### [facility] HOSPITAL LAB (BEAKER) [address] [place] [address] Eosinophils (Bld) [#/Vol] 0.14 10*3/uL Normal 0.00-0.50 [facility] Comment on above: Performed By: #### L [id number] #### [facility] HOSPITAL LAB (BEAKER) [address] [place] [address] Eosinophils/100 WBC (Bld) 1.8 % Normal 0.0-6.0 [facility] Comment on above: Performed By: #### L [id number] #### [facility] HOSPITAL LAB (BEAKER) [address] [place] [address] Erythrocyte distribution width (RBC) [Ratio] 14.6 % Normal 11.5-15.0 [facility] Comment on above: Performed By: #### L [id number] #### [facility] HOSPITAL LAB (BEAKER) [address] [place] [address] ERYTHROCYTE MEAN CORPUSCULAR HEMOGLOBIN CONCENTRATION (G/DL) BY AUTOMATED 32.9 g/dL Normal 32.0-35.0 [facility] Comment on above: Performed By: #### L [id number] #### [facility] [address] [place] [address] Hematocrit (Bld) [Volume fraction] 39.8 % Normal 39.0-50.0 [facility] Comment on above: Performed By: #### L [id number] #### [facility] [address] [place] [address] Hemoglobin (Bld) [Mass/Vol] 13.1 g/dL Normal 13.0-17.0 [facility] Comment on above: Performed By: #### L [id number] #### [facility] [address] [place] [address] Immature granulocytes (Bld) [#/Vol] 0.03 10*3/uL Normal 0.00-0.20 [facility] Comment on above: Performed By: #### L [id number] #### [facility] ([facility] [address] [place] [address] Immature granulocytes/100 WBC (Bld) 0.4 % Normal 0.0-1.0 [facility] Comment on above: Performed By: #### L [id number] #### [facility] (BEAKER) [address] [place] [address] Lymphocytes (Bld) [#/Vol] 1.51 10*3/uL Normal 1.20-4.00 [facility] Comment on above: Performed By: #### L [id number] #### [facility] (BEAKER) [address] [place] [address] Lymphocytes/100 WBC (Bld) 19.8 % Low 20.0-45.0 [facility] Comment on above: Performed By: #### L [id number] #### [facility] (BEAKER) [address] [place] [address] MCH (RBC) [Entitic mass] 29.3 pg Normal 27.0-33.0 [facility] Comment on above: Performed By: #### L [id number] #### [facility] ([facility] [address] [place] [address] MCV (RBC) [Entitic vol] 89.0 fL Normal 82.0-98.0 [facility] Comment on above: Performed By: #### L [id number] #### [facility] ([facility] [address] [place] [address] Monocytes (Bld) [#/Vol] 0.57 10*3/uL Normal 0.10-1.00 [facility] Comment on above: Performed By: #### L [id number] #### [facility] ([facility] [address] [place] [address] Monocytes/100 WBC (Bld) 7.5 % Normal 5.0-12.0 [facility] Comment on above: Performed By: #### L [id number] #### [facility] ([facility] [address] [place] [address] Neutrophils (Bld) [#/Vol] 5.32 10*3/uL Normal 1.60-7.60 [facility] Comment on above: Performed By: #### L [id number] #### [facility] ([facility] [address] [place] [address] Neutrophils/100 WBC (Bld) 69.8 % Normal 40.0-72.0 [facility] Comment on above: Performed By: #### L [id number] #### [facility] ([facility] [address] [place] [address] NRBC (PER 100 WBCS) BY AUTOMATED COUNT 0.0 % Normal 0 [facility] Comment on above: Performed By: #### L [id number] #### [facility] ([facility] [address] [place] [address] PLATELETS (10*3/UL) IN BLOOD AUTOMATED COUNT 201 10*3/uL Normal 150-400 [facility] Comment on above: Performed By: #### L [id number] #### [facility] ([facility] [address] [place] [address] RBC (Bld) [#/Vol] 4.47 10*6/uL Normal 4.20-5.70 [facility] Comment on above: Performed By: #### L [id number] #### [facility] ([facility] [address] [place] [address] WBC (Bld) [#/Vol] 7.62 10*3/uL Normal 4.00-10.60 [facility] Comment on above: Performed By: #### L [id number] #### [facility] ([facility] [address] [place] [address] COMPREHENSIVE METABOLIC PANE [facility] 08-13-2024 Albumin [Mass/Vol] 4.3 g/dL Normal 3.5-5.7 [facility] Comment on above: Performed By: #### L [id number] #### [facility] ([facility] [address] [place] [address] ALP [Catalytic activity/Vol] 90 U/L Normal 34-104 [facility] Comment on above: Performed By: #### L [id number] #### [facility] ([facility] [address] [place] [address] ALT [Catalytic activity/Vol] 15 U/L Normal 7-52 [facility] Comment on above: Performed By: #### L [id number] #### [facility] ([facility] [address] [place] [address] Anion gap [Moles/Vol] 13 mmol/L Normal 7-20 [facility] Comment on above: Performed By: #### L [id number] #### [facility] ([facility] [address] [place] [address] AST [Catalytic activity/Vol] 27 U/L Normal 13-39 [facility] Comment on above: Performed By: #### L [id number] #### [facility] ([facility] [address] [place] [address] Bilirubin [Mass/Vol] 0.7 mg/dL Normal 0.3-1.0 [facility] Comment on above: Performed By: #### L [id number] #### [facility] ([facility] [address] [place] [address] Calcium [Mass/Vol] 9.1 mg/dL Normal 8.6-10.3 [facility] Comment on above: Performed By: #### L [id number] #### [facility] ([facility] [address] [place] [address] Chloride [Moles/Vol] 108 mmol/L High 98-107 [facility] Comment on above: Performed By: #### L [id number] #### [facility] ([facility] [address] [place] [address] CO2 [Moles/Vol] 21 mmol/L Normal 21-31 [facility] Comment on above: Performed By: #### L [id number] #### [facility] ([facility] [address] [place] [address] Creatinine [Mass/Vol] 1.63 mg/dL High 0.70-1.30 [facility] Comment on above: Performed By: #### L [id number] #### [facility] ([facility] [address] [place] [address] GLOMERULAR FILTRATION RATE ML/MIN/1.73 SQ M.PREDICTED 44.5 mL/min/1.73m*2 Low >60.0 [facility] Comment on above: Result Comment: The [facility]???s estimated glomerular filtration rate (eGFR) [...] individuals. Performed By: #### L [id number] #### [facility] ([facility] [address] [place] [address] Glucose [Mass/Vol] 165 mg/dL High 70-100 [facility] Comment on above: Performed By: #### L [id number] #### [facility] ([facility] [address] [place] [address] Potassium [Moles/Vol] 4.7 mmol/L Normal 3.5-5.1 [facility] Comment on above: Performed By: #### L [id number] #### [facility] ([facility] [address] [place] [address] Protein [Mass/Vol] 7.2 g/dL Normal 6.0-8.3 [facility] Comment on above: Performed By: #### L [id number] #### [facility] ([facility] [address] [place] [address] Sodium [Moles/Vol] 137 mmol/L Normal 136-145 [facility] Comment on above: Performed By: #### L [id number] #### [facility] ([facility] [address] [place] [address] Urea nitrogen [Mass/Vol] 26 mg/dL High 7-25 [facility] Comment on above: Performed By: #### L [id number] #### [facility] ([facility] [address] [place] [address] UREA NITROGEN/CREATININE (MASS RATIO) IN SER/PLAS 16.0 Normal [facility] Comment on above: Performed By: #### L [id number] #### [facility] ([facility] [address] [place] [address] CONSULTon 08-13-2024 CONSULT ----- ----- Attestation signed by Tatianna Hayward MD at 08/13/2024 7:18 PM I personally spoke with and examined Mr. Lizama with Dr. Pagan today. I then spoke with his intramural director Dr. Bishop about his longitudinal care. At [...] mildly elevated troponin. Patient was transferred to [facility] for further evaluation and treatment. Patient mentioned [...] (1000 unit (more content not included)... Normal [facility] Eosinophils/100 WBC Auto (Bl d)on 08-13-2024 Eosinophils/100 WBC (Bld) Automated eosinophil % 0.9-7.0 [facility] Erythrocyte distribution wid th Auto (RBC) [Ratio]on 08-13-2024 Erythrocyte distribution width (RBC) [Ratio] Erythrocyte distribution width [Ratio] by Automated count 11.0-15.0 [facility] Estimated glomerular filtrat ion rate (GFR) non- Americanon 08-13-2024 GFR/1.73 sq M.predicted among non-blacks MDRD (S/P/Bld) [Vol rate/Area] Estimated glomerular filtration rate (GFR) non- Low >=60 mL/min/1.[address] [facility] Fibrin D-dimer [Presence] in Platelet poor plasma by Latex agglutinationon 08-13-2024 Fibrin D-dimer LA Ql (PPP) Fibrin D-dimer [Presence] in Platelet poor plasma by Latex agglutination Critically high <=0.59 [facility] Comment on above: RESULTS CALLED TO [...] I (NG/L) 294 ng/L Critically high <20 [facility] Comment on above: Performed By: #### L [id number] #### [facility] HOSPITAL LAB (BEAKER) [address] [place] [address] Hematocrit Auto (Bld) [Volum e fraction]on 08-13-2024 Hematocrit (Bld) [Volume fraction] Hematocrit [Volume Fraction] of Blood by Automated count Low 42.0-54.0 [facility] Hemoglobin [Mass/volume] in Bloodon 08-13-2024 Hemoglobin (Bld) [Mass/Vol] Hemoglobin [Mass/volume] in Blood Low 14.0-18.0 [facility] Laboratory - Chemistry and C hemistry - challengeon 08-13-2024 Calcium [Mass/Vol] 9.3 mg/dL 8.5-10.1 [facility] Chloride [Moles/Vol] 103 mmol/L 98-107 [facility] CO2 [Moles/Vol] 24.4 mmol/L 21.0-32.0 [facility] Creatinine [Mass/Vol] 2.02 mg/dL High 0.70-1.30 [facility] GFR/1.73 sq M.predicted MDRD (S/P/Bld) [Vol rate/Area] 40 mL/min/{1.73_m2} Low >=60 mL/min/1.[address] [facility] Glucose [Mass/Vol] 310 mg/dL High 74-106 [facility] Potassium [Moles/Vol] 3.9 mmol/L 3.5-5.1 [facility] Sodium [Moles/Vol] 137 mmol/L 136-145 [facility] Urea nitrogen [Mass/Vol] 29.0 mg/dL High 7.0-18.0 [facility] Urea nitrogen/Creatinine [Mass ratio] 14.4 mg/mg [facility] Laboratory - Hematology and Cell countson 08-13-2024 Immature granulocytes/100 WBC (Bld) 0.5 % 0.0-0.5 [facility] Leukocytes [#/volume] correc soraya for nucleated erythrocytes in Blood by Automated counon 08-13-2024 WBC corrected for nucl RBC Auto (Bld) [#/Vol] Leukocytes [#/volume] corrected for nucleated erythrocytes in Blood by Automated coun 4.0-11.0 [facility] Lymphocytes Auto (Bld) [#/Vo l]on 08-13-2024 Lymphocytes (Bld) [#/Vol] Lymphocytes [#/volume] in Blood by Automated count 1.2-3.8 [facility] Lymphocytes/100 WBC Auto (Bl d)on 08-13-2024 Lymphocytes/100 WBC (Bld) Lymphocytes/100 leukocytes in Blood by Automated count 20.5-60.0 [facility] MAGNESIUMon 08-13-2024 Magnesium [Mass/Vol] 1.9 mg/dL Normal 1.9-2.7 [facility] Comment on above: Performed By: #### L [id number] #### [facility] (BEAKER) [address] [place] [address] MCH Auto (RBC) [Entitic mass ]on 08-13-2024 MCH (RBC) [Entitic mass] MCH [Entitic mass] by Automated count 25.9-34.0 [facility] MCHC Auto (RBC) [Mass/Vol]on 08-13-2024 MCHC (RBC) [Mass/Vol] MCHC [Mass/volume] by Automated count 29.9-35.2 [facility] MCV Auto (RBC) [Entitic vol] on 08-13-2024 MCV (RBC) [Entitic vol] MCV [Entitic volume] by Automated count 80.0-94.0 [facility] Monocytes Auto (Bld) [#/Vol] on 08-13-2024 Monocytes (Bld) [#/Vol] Automated blood monocyte count High 0.3-0.8 [facility] Monocytes/100 WBC Auto (Bld) on 08-13-2024 Monocytes/100 WBC (Bld) Automated monocyte % 1.7-12.0 [facility] Neutrophils Auto (Bld) [#/Vo l]on 08-13-2024 Neutrophils (Bld) [#/Vol] Neutrophils [#/volume] in Blood by Automated count 1.4-6.5 [facility] Neutrophils/100 WBC Auto (Bl d)on 08-13-2024 Neutrophils/100 WBC (Bld) Automated neutrophil % 43.0-75.0 [facility] No Panel Informationon 08-13 Troponin I High Sensitivity 228.4 pg/mL Critically high 4.0-76.1 [facility] Comment on above: RESULTS CALLED TO [...] Eosinophils # (Auto) 0.2 10 3/uL 0.0-0.7 [facility] Immature Granulocyte # (Auto) 0.04 10 3/uL High 0.00-0.03 [facility] PHOSPHORUSon 08-13-2024 Magnesium [Mass/Vol] 3.6 mg/dL Normal 2.5-5.0 [facility] Comment on above: Performed By: #### L [id number] #### [facility] (BEAKER) [address] [place] [address] POCT GLUCOSE METER UNSOLICIT ED RESULTSon 08-13-2024 Glucose [Mass/Vol] 104 mg/dL Normal 70-[facility] Comment on above: Order Comment: Waive d Testing in the ED is performed under the ED CLIA certificate #[id number]. Result Comment: [email or web address] Performed By: #### L [id number] ####[facility] (BEAKER)[address] [place] [address] Glucose [Mass/Vol] 207 mg/dL High 70-105 [facility] Comment on above: Order Comment: Check anti-Xa level every 6 hours while on heparin infusion, or per protocol. Result Comment: [email or web address] gol Performed By: #### L [id number] #### [facility] (BEAKER) [address] [place] [address] Glucose [Mass/Vol] 160 mg/dL High 70-105 [facility] Comment on above: Order Comment: Waive d Testing in the ED is performed under the ED CLIA certificate #[id number]. Result Comment: [email or web address] gol Performed By: #### L [id number] #### [facility] (BEAKER) [address] [place] [address] Platelet mean volume Auto (B ld) [Entitic vol]on 08-13-2024 Platelet mean volume (Bld) [Entitic vol] Platelet mean volume [Entitic volume] in Blood by Automated count 9.5-13.5 [facility] Platelets Auto (Bld) [#/Vol] on 08-13-2024 Platelets (Bld) [#/Vol] Platelets [#/volume] in Blood by Automated count 150-450 [facility] RBC Auto (Bld) [#/Vol]on RBC (Bld) [#/Vol] Erythrocytes [#/volu me] in Blood by Automated count Low 4.70-6.10 [facility] Serum or plasma anion gap de terminationon 08-13-2024 Anion gap [Moles/Vol] Serum or plasma an ion gap determination [facility] Main OR Preoperative Recordo n 08-11-2024 Main OR Preoperative Record Main OR Preoperative Record Holding Area Document Type FTURO Summary Primary Physician: Jason LARKIN MD Finalized Date/Time: 08/11/24 16:19:02 Pt. Name: LANI LIZAMA/Sex: 1950 Male Med Rec #: [id number] Physician: Jason LARKIN MD Financial #: [id number] Pt. Type: O Room/Bed: / Admit/Disch: 08/04/24 09:15:12 - 08/04/24 23:59:59 Institution: Case Times Holding FTURO Pre-Care Text: Verifies consent for planned procedure, identifies individual values and wishes concerning care, includes family members in perioperative teaching Secures patient's records' belongings, and valuables, maintains patient's dignity and privacy, and maintains patient confidentiality Entry 1 In Holding 08/04/24 09:24:00 Outcomes Met? Yes Last Modified By: Rose Reyna RN Pham May 08/04/24 09:24:04 Post-Care Text: The patient participates [...] SUNITA Agrawal RN, Ruthann 08/11/24 16:19 Normal [facility] Urine Cytology ([facility])on 08-07-2024 Microscopic exam Cytology (U) [Interp] Diagnosis Info Invalid Interpretation Code [facility] Comment on above: Result Comment: A:Ur ine,Urine:Voided Interpretation - Adequate cellularity for evaluation. CPT 85405 MicroScopic Description - Adequacy - Gross Description Site ID:A color Red fixative Alcohol Specimen designated Urine received in alcohol preservative and labeled with the patient???s name, consists of 60ml cloudy red fluid. Electronically signed by : on: 08/07/2024 13:02:18 Performed By: #### 1 [id number] #### [facility] [address] [place] [address] Main OR Intraoperative Recor don 05-06-2025 Main OR Intraoperative Record Main OR Intraoperative Record IntraOp Document Type FTURO Summary Primary Physician: Jason LARKIN MD Finalized Date/Time: 08/04/24 10:03:52 Pt. Name: LANI LIZAMA/Sex: 1950 Male Med Rec #: [id number] Physician: Jason LARKIN MD Financial #: [id number] Pt. Type: O Room/Bed: / Admit/Disch: 08/04/24 09:15:12 - Institution: Case Times FTURO Entry 1 Patient Times In Room 08/04/24 09:45:00 Out Room 08/04/24 10:10:00 Procedure Times Start 08/04/24 09:53:00 Stop 08/04/24 10:05:00 Anesthesia Times Last Modified By: Tanja POSADA, SUNITA, Yanet 08/04/24 10:03:16 Case Attendance FTURO Entry 1 Entry 2 Entry 3 Case Attendee Jason LARKIN MD RN, DEEPALIOR, Halley WRIGHT, Hortencia Holt Role Performed Surgeon - Primary Bundle Person - Primary Scrub - Primary Time In 08/04/24 09:45:00 08/04/24 09:45:00 08/04/24 09:45:00 Time Out 08/04/24 10:10:00 08/04/24 10:10:00 08/04/24 10:10:00 Procedure CYSTOSCOPY LOCAL(.) CYSTOSCOPY LOCAL(.) CYSTOSCOPY LOCAL(.) Comments Last Modified By: Tanja RN, CNOR, Tanja POSADA, DEEPALIOR, Tanja POSADA, DEEPALIOR, [...] CHAYA LEMUS, Jason Sanchez, Verified (If Participants SUNITA Agrawal RN, Applicable) Halley Holt CST, Hortencia Mota Time [...] SUNITA Agrawal RN, Ruthann 08/04/24 10:03 Normal [facility] Operative Reporton Operative Report Operative Report [...] TURBT potentially at a tertiary center.. Normal [facility] Comment on above: Result Comment: Elec tronically Signed By: Jason LARKIN MD\.br\Date and Time Signed: 08/04/24 10:12 EDT HbA1c HPLC (Bld) [Mass fract ion]on 08-03-2024 HbA1c (Bld) [Mass fraction] Hemoglobin A1c/Hemoglobin.total in Blood by HPLC [facility] No Panel Informationon 08-[address] [facility] Urine Cytology ([facility])on 0 08-03-2024 Method of Extraction Voided Normal [facility] Comment on above: Performed By: #### 1 [id number] #### [facility] [address] [place] [address] Number of Jars 1 Invalid Interpretation Code [facility] Comment on above: Performed By: #### 1 [id number] #### [facility] [address] [place] [address] Specimen Urine Normal [facility] Comment on above: Performed By: #### 1 [id number] #### [facility] [address] [place] [address] Type of Service Technical Only Normal [facility] Comment on above: Performed By: #### 1 [id number] #### [facility] [address] [place] [address] Urology Office/Clinic Noteon 08-03-2024 Urology Office/Clinic Note [...] factor for urothelial ca. 5. 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 Hx of CABG x5 1995 at [facility], PCI/stent x8 at [facility]. Elevated risk for periop complications. Follow-up With When Contact Information Jason LARKIN MD, [facility] [address], [place] [address]- [phone] Additional Instructions: sched cysto Patient Education Cystoscopy I, Tiffany Patten, personally scribed for Dr. Larkin on 08/03/2024 14:23:23. . Documentation recorded by the scribe, Tiffany Patten, accurately reflects the services(s) I performed and decisions made by me. Authenticated by Dr. Larkin on 08/03/2024 14:25:00. Problem List/Past Medical History Ongoing Abdominal pain, RLQ Anticoagulated Arthritis ASHD (arteriosclerotic heart disease) Atheroscler of [place] artery of both legs with intermit claudication [...] abdominal aort (more content not included)... Normal [facility] Comment on above: Result Comment: Elec tronically Signed By: Jason LARKIN MD\.br\Date and Time Signed: 08/03/24 14:25 EDT\.br\Electronically Co-Signed By: Tiffany Patten\.br\Date and Time Co-Signed: 08/03/24 14:24 EDT Basophils Auto (Bld) [#/Vol] on 07-15-2024 Basophils (Bld) [#/Vol] Automated basophil count 0.0-0.1 [facility] Basophils/100 WBC Auto (Bld) on 07-15-2024 Basophils/100 WBC (Bld) Automated basophil % 0.2-2.0 [facility] Eosinophils/100 WBC Auto (Bl d)on 07-15-2024 Eosinophils/100 WBC (Bld) Automated eosinophil % 0.9-7.0 [facility] Erythrocyte distribution wid th Auto (RBC) [Ratio]on 07-15-2024 Erythrocyte distribution width (RBC) [Ratio] Erythrocyte distribution width [Ratio] by Automated count 11.0-15.0 [facility] Estimated glomerular filtrat ion rate (GFR) non- Americanon 07-15-2024 GFR/1.73 sq M.predicted among non-blacks MDRD (S/P/Bld) [Vol rate/Area] Estimated glomerular filtration rate (GFR) non- Low >=60 mL/min/1.[address] [facility] Globulin Calc (S) [Mass/Vol] on 07-15-2024 Globulin (S) [Mass/Vol] Serum globulin measurement by calculation (mass/volume) [facility] Hematocrit Auto (Bld) [Volum e fraction]on 07-15-2024 Hematocrit (Bld) [Volume fraction] Hematocrit [Volume Fraction] of Blood by Automated count 42.0-54.0 [facility] Hemoglobin [Mass/volume] in Bloodon 07-15-2024 Hemoglobin (Bld) [Mass/Vol] Hemoglobin [Mass/volume] in Blood 14.0-18.0 [facility] Laboratory - Chemistry and C hemistry - challengeon 07-15-2024 Albumin [Mass/Vol] 3.8 g/dL 3.4-5.0 [facility] ALP [Catalytic activity/Vol] 128 U/L High 46-116 [facility] ALT [Catalytic activity/Vol] 30 U/L 16-63 [facility] AST [Catalytic activity/Vol] 22 U/L 15-37 [facility] Bilirubin [Mass/Vol] 0.6 mg/dL 0.2-1.0 [facility] Calcium [Mass/Vol] 8.9 mg/dL 8.5-10.1 [facility] Chloride [Moles/Vol] 104 mmol/L 98-107 [facility] CO2 [Moles/Vol] 28.1 mmol/L 21.0-32.0 [facility] Creatinine [Mass/Vol] 1.74 mg/dL High 0.70-1.30 [facility] GFR/1.73 sq M.predicted MDRD (S/P/Bld) [Vol rate/Area] 47 mL/min/{1.73_m2} Low >=60 mL/min/1.[address] [facility] Glucose [Mass/Vol] 142 mg/dL High 74-106 [facility] Potassium [Moles/Vol] 4.1 mmol/L 3.5-5.1 [facility] Protein [Mass/Vol] 7.5 g/dL 6.4-8.2 [facility] Sodium [Moles/Vol] 140 mmol/L 136-145 [facility] Urea nitrogen [Mass/Vol] 19.0 mg/dL High 7.0-18.0 [facility] Urea nitrogen/Creatinine [Mass ratio] 10.9 mg/mg [facility] Laboratory - Hematology and Cell countson 07-15-2024 Immature granulocytes/100 WBC (Bld) 0.6 % High 0.0-0.5 [facility] Leukocytes [#/volume] correc soraya for nucleated erythrocytes in Blood by Automated counon 07-15-2024 WBC corrected for nucl RBC Auto (Bld) [#/Vol] Leukocytes [#/volume] corrected for nucleated erythrocytes in Blood by Automated coun 4.0-11.0 [facility] Lymphocytes Auto (Bld) [#/Vo l]on 07-15-2024 Lymphocytes (Bld) [#/Vol] Lymphocytes [#/volume] in Blood by Automated count 1.2-3.8 [facility] Lymphocytes/100 WBC Auto (Bl d)on 07-15-2024 Lymphocytes/100 WBC (Bld) Lymphocytes/100 leukocytes in Blood by Automated count 20.5-60.0 [facility] MCH Auto (RBC) [Entitic mass ]on 07-15-2024 MCH (RBC) [Entitic mass] MCH [Entitic mass] by Automated count 25.9-34.0 [facility] MCHC Auto (RBC) [Mass/Vol]on 07-15-2024 MCHC (RBC) [Mass/Vol] MCHC [Mass/volume] by Automated count 29.9-35.2 [facility] MCV Auto (RBC) [Entitic vol] on 07-15-2024 MCV (RBC) [Entitic vol] MCV [Entitic volume] by Automated count 80.0-94.0 [facility] Monocytes Auto (Bld) [#/Vol] on 07-15-2024 Monocytes (Bld) [#/Vol] Automated blood monocyte count 0.3-0.8 [facility] Monocytes/100 WBC Auto (Bld) on 07-15-2024 Monocytes/100 WBC (Bld) Automated monocyte % 1.7-12.0 [facility] Neutrophils Auto (Bld) [#/Vo l]on 07-15-2024 Neutrophils (Bld) [#/Vol] Neutrophils [#/volume] in Blood by Automated count 1.4-6.5 [facility] Neutrophils/100 WBC Auto (Bl d)on 07-15-2024 Neutrophils/100 WBC (Bld) Automated neutrophil % 43.0-75.0 [facility] No Panel Informationon 07-15 Eosinophils # (Auto) 0.3 10 3/uL 0.0-0.7 [facility] Immature Granulocyte # (Auto) 0.05 10 3/uL High 0.00-0.03 [facility] Platelet mean volume Auto (B ld) [Entitic vol]on 07-15-2024 Platelet mean volume (Bld) [Entitic vol] Platelet mean volume [Entitic volume] in Blood by Automated count 9.5-13.5 [facility] Platelets Auto (Bld) [#/Vol] on 07-15-2024 Platelets (Bld) [#/Vol] Platelets [#/volume] in Blood by Automated count 150-450 [facility] RBC Auto (Bld) [#/Vol]on RBC (Bld) [#/Vol] Erythrocytes [#/volu me] in Blood by Automated count 4.70-6.10 [facility] Serum or plasma albumin/glob ulin mass ratioon 07-15-2024 Albumin/Globulin [Mass ratio] Serum or plasma albumin/globulin mass ratio [facility] Serum or plasma anion gap de terminationon 07-15-2024 Anion gap [Moles/Vol] Serum or plasma an ion gap determination [facility] Erythrocyte distribution wid th Auto (RBC) [Ratio]on 07-07-2024 Erythrocyte distribution width (RBC) [Ratio] Erythrocyte distribution width [Ratio] by Automated count High 11.0-15.0 [facility] Estimated glomerular filtrat ion rate (GFR) non- Americanon 07-07-2024 GFR/1.73 sq M.predicted among non-blacks MDRD (S/P/Bld) [Vol rate/Area] Estimated glomerular filtration rate (GFR) non- Low >=60 mL/min/1.[address] [facility] Hematocrit Auto (Bld) [Volum e fraction]on 07-07-2024 Hematocrit (Bld) [Volume fraction] Hematocrit [Volume Fraction] of Blood by Automated count 42.0-54.0 [facility] Hemoglobin [Mass/volume] in Bloodon 07-07-2024 Hemoglobin (Bld) [Mass/Vol] Hemoglobin [Mass/volume] in Blood 14.0-18.0 [facility] Laboratory - Chemistry and C hemistry - challengeon 07-07-2024 Albumin [Mass/Vol] 3.9 g/dL 3.4-5.0 [facility] Calcium [Mass/Vol] 9.3 mg/dL 8.5-10.1 [facility] Chloride [Moles/Vol] 105 mmol/L 98-107 [facility] CO2 [Moles/Vol] 28.7 mmol/L 21.0-32.0 [facility] Creatinine [Mass/Vol] 1.87 mg/dL High 0.70-1.30 [facility] GFR/1.73 sq M.predicted MDRD (S/P/Bld) [Vol rate/Area] 43 mL/min/{1.73_m2} Low >=60 mL/min/1.[address] [facility] Glucose [Mass/Vol] 196 mg/dL High 74-106 [facility] Magnesium [Mass/Vol] 1.9 mg/dL 1.8-2.4 [facility] Potassium [Moles/Vol] 5.5 mmol/L High 3.5-5.1 [facility] Sodium [Moles/Vol] 139 mmol/L 136-145 [facility] Urate [Mass/Vol] 3.5 mg/dL 3.5-7.2 [facility] Urea nitrogen [Mass/Vol] 19.0 mg/dL High 7.0-18.0 [facility] Urea nitrogen/Creatinine [Mass ratio] 10.2 mg/mg [facility] Laboratory - Urinalysison Protein (U) [Mass/Vol] 124.0 mg/dL High <=11.9 [facility] Leukocytes [#/volume] correc soraya for nucleated erythrocytes in Blood by Automated counon 07-07-2024 WBC corrected for nucl RBC Auto (Bld) [#/Vol] Leukocytes [#/volume] corrected for nucleated erythrocytes in Blood by Automated coun 4.0-11.0 [facility] MCH Auto (RBC) [Entitic mass ]on 07-07-2024 MCH (RBC) [Entitic mass] MCH [Entitic mass] by Automated count 25.9-34.0 [facility] MCHC Auto (RBC) [Mass/Vol]on 07-07-2024 MCHC (RBC) [Mass/Vol] MCHC [Mass/volume] by Automated count 29.9-35.2 [facility] MCV Auto (RBC) [Entitic vol] on 07-07-2024 MCV (RBC) [Entitic vol] MCV [Entitic volume] by Automated count 80.0-94.0 [facility] No Panel Informationon 07-07 25-Hydroxy Vitamin D Total 41.5 ng/mL [facility] Comment on above: <20 ng/mL Vit D defi cient20-<30 ng/mL Vit D [id number] ng/mL Vit D sufficient>100 ng/mL Potential Toxicity Parathyroid Hormone (Intact) 62 pg/mL 15-65 [facility] Comment on above: Performed at: - [address] [id number] Director: Kwaku Park PhD, Phone: [phone] Phosphorus Level 3.7 mg/dL 2.6-4.7 [facility] Urine Random Creatinine 69.77 mg/dL 20.00-300. 00 [facility] Platelet mean volume Auto (B ld) [Entitic vol]on 07-07-2024 Platelet mean volume (Bld) [Entitic vol] Platelet mean volume [Entitic volume] in Blood by Automated count 9.5-13.5 [facility] Platelets Auto (Bld) [#/Vol] on 07-07-2024 Platelets (Bld) [#/Vol] Platelets [#/volume] in Blood by Automated count 150-450 [facility] RBC Auto (Bld) [#/Vol]on RBC (Bld) [#/Vol] Erythrocytes [#/volu me] in Blood by Automated count 4.70-6.10 [facility] Serum or plasma anion gap de terminationon 07-07-2024 Anion gap [Moles/Vol] Serum or plasma an ion gap determination [facility] Urine Cultureon 07-07-2024 Bacteria identified Cx Nom (U) <9,000 colonies/ml mixed bacterial skin contaminants 2 Days PERFORMED BY: [place] [address] PATHOLOGIST CLEANING AND MAINTENANCE WORKER ANDREA FARRELL M.D. Normal [facility] Comment on above: Performed By: #### C UU #### [address] Urine protein/creatinine rat ioon 07-07-2024 Protein/Creatinine (U) [Ratio] Urine protein/creatinine ratio [facility] Laboratory - Microbiology an d Antimicrobial susceptibilityon 06-10-2024 SARS-CoV-2 (COVID-19) RNA RAMO+probe Ql (Unsp spec) Positive Abnormal NEGATIVE [facility] Comment on above: This test has not be en FDA cleared or approved, but has beenauthorized by the FDA under an Emergency Use Authorization(EUA) for use by authorized laboratories certified underCLIA that meet the requirements to perform moderate [...] 06-10 Bedside Influenza Type A Antigen Negative [facility] Comment on above: Negative for Flu A p rotein antigen. Infection due to Flu Acannot be ruled out. Flu A antigen in the sample may bebelow the detection limit of the test. Bedside Influenza Type B Antigen Negative [facility] Comment on above: Negative for Flu B p rotein antigen. Infection due to Flu Bcannot be ruled out. Flu B antigen in the sample may bebelow the detection limit of the test. Cholesterol in LDL Calc [Mas s/Vol]on 05-05-2024 Cholesterol in LDL [Mass/Vol] Cholesterol in LDL [Mass/volume] in Serum or Plasma by calculation [facility] Comment on above: <100 mg/dl [id number] 0-129 mg/dl NEAR OR ABOVE [id number] mg/dl BORDERLINE [id number] mg/dl HIGH>190 mg/dl VERY HIGH Cholesterol in VLDL Calc [Ma ss/Vol]on 05-05-2024 Cholesterol in VLDL [Mass/Vol] Cholesterol in VLDL [Mass/volume] in Serum or Plasma by calculation [facility] Estimated glomerular filtrat ion rate (GFR) non- Americanon 05-05-2024 GFR/1.73 sq M.predicted among non-blacks MDRD (S/P/Bld) [Vol rate/Area] Estimated glomerular filtration rate (GFR) non- Low >=60 mL/min/1.[address] [facility] Globulin Calc (S) [Mass/Vol] on 05-05-2024 Globulin (S) [Mass/Vol] Serum globulin measurement by calculation (mass/volume) [facility] - Chemistry and C hemistry - challengeon 05-05-2024 Albumin [Mass/Vol] 3.7 g/dL 3.4-5.0 [facility] ALP [Catalytic activity/Vol] 162 U/L High 46-116 [facility] ALT [Catalytic activity/Vol] 17 U/L 16-63 [facility] AST [Catalytic activity/Vol] 20 U/L 15-37 [facility] Bilirubin [Mass/Vol] 0.5 mg/dL 0.2-1.0 [facility] Calcium [Mass/Vol] 9.2 mg/dL 8.5-10.1 [facility] Chloride [Moles/Vol] 104 mmol/L 98-107 [facility] Cholesterol [Mass/Vol] 117 mg/dL <=200 [facility] Cholesterol in HDL [Mass/Vol] 39 mg/dL Low 40-60 [facility] Comment on above: > or =60 mg/dl - LOW CARDIOVASCULAR RISK<40 mg/dl - HIGH CARDIOVASCULAR RISK CO2 [Moles/Vol] 28.5 mmol/L 21.0-32.0 [facility] Creatinine [Mass/Vol] 2.15 mg/dL High 0.70-1.30 [facility] GFR/1.73 sq M.predicted MDRD (S/P/Bld) [Vol rate/Area] 37 mL/min/{1.73_m2} Low >=60 mL/min/1.[address] [facility] Glucose [Mass/Vol] 220 mg/dL High 74-106 [facility] Potassium [Moles/Vol] 4.6 mmol/L 3.5-5.1 [facility] Protein [Mass/Vol] 8.0 g/dL 6.4-8.2 [facility] Sodium [Moles/Vol] 141 mmol/L 136-145 [facility] Triglyceride [Mass/Vol] 171 mg/dL High <=150 [facility] Urea nitrogen [Mass/Vol] 27.0 mg/dL High 7.0-18.0 [facility] Urea nitrogen/Creatinine [Mass ratio] 12.6 mg/mg [facility] Microalbumin [Mass/volume] i n Urineon 05-05-2024 Albumin DL <= 20 mg/L (U) [Mass/Vol] Microalbumin [Mass/volume] in Urine <=30.0 [facility] No Panel Informationon 05-05 Urine Random Creatinine 61.15 mg/dL 20.00-300. 00 [facility] Serum or plasma albumin/glob ulin mass ratioon 05-05-2024 Albumin/Globulin [Mass ratio] Serum or plasma albumin/globulin mass ratio [facility] Serum or plasma anion gap de terminationon 05-05-2024 Anion gap [Moles/Vol] Serum or plasma an ion gap determination [facility] Serum or plasma total choles terol/high density lipoprotein (HDL) cholesterol mass yulia 05-05-2024 Cholesterol.total/Chol esterol in HDL [Mass ratio] Serum or plasma total cholesterol/high density lipoprotein (HDL) cholesterol mass rat [facility] Comment on above: 3.3 - 4.4 LOW RISK4. 4 - 7.1 AVERAGE RISK7.1 - 11.0 MODERATE RISK>11.0 HIGH RISK Urine microalbumin/creatinin e mass ratioon 05-05-2024 Albumin/Creatinine DL <= 20 mg/L (U) [Mass ratio] Urine microalbumin/creatinine mass ratio High 0.0-29.9 [facility] Comment on above: NO MICROALBUMINURIA 0-29 MG/GCLINICAL MICROALBUMINURIA 30-300 MG/GMACROALBUMINURIA >300 MG/G HbA1c HPLC (Bld) [Mass fract ion]on 04-30-2024 HbA1c (Bld) [Mass fraction] Hemoglobin A1c/Hemoglobin.total in Blood by HPLC [facility] No Panel Informationon 04-[address] [facility] Office Visiton 03-10-2024 Follow-up visit [id number] Lani Lizama 1950 M Date Provider Department Center 03/10/2024 [facility]-KEVIN ARTEAGA Family History Problem Relation Age of Onset Heart attack Mother Other Father Other Brother Heart attack Maternal Grandmother Heart attack Maternal Grandfather Family Status - Relation Status Age at Mother Father Brother Maternal Grandmother Maternal Grandfather Level of Service:[id number] ID OFFICE/OUTPATIENT NEW LOW MDM 30 MINUTES Normal [facility] 30on 02-14-2024 30 The patient is Moder ately Stable - Low risk of patient condition declining or worsening The patient's goals for the shift include get better The clinical goals for the shift include VSS Normal [facility] 30 The patient is Moder [...] and behaviors that affect risk of falls Young Harris fall precautions as indicated by assessment Educate [...] and prevent overall improvement and discharge Normal [facility] BASIC METABOLIC PANELon 01-30 Anion gap [Moles/Vol] 9 mmol/L Normal 7-20 [facility] Comment on above: Performed By: #### L [id number] ####[facility] ([facility] [place] [address] Calcium [Mass/Vol] 8.4 mg/dL Low 8.6-10.3 [facility] Comment on above: Performed By: #### L [id number] ####[facility] ([facility] [place] [address] Chloride [Moles/Vol] 109 mmol/L High 98-107 [facility] Comment on above: Performed By: #### L [id number] ####[facility] ([facility] [place] [address] CO2 [Moles/Vol] 25 mmol/L Normal 21-31 [facility] Comment on above: Performed By: #### L [id number] ####[facility] ([facility] [place] [address] Creatinine [Mass/Vol] 1.65 mg/dL High 0.70-1.30 [facility] Comment on above: Performed By: #### L [id number] ####[facility] ([facility] [place] [address] GLOMERULAR FILTRATION RATE ML/MIN/1.73 SQ M.PREDICTED 43.8 mL/min/1.73m*2 Low >60.0 [facility] Comment on above: Result Comment: [facility]???s estimated glomerular filtration rate (eGFR) [...] of individuals. Performed By: #### L [id number] ####[facility] (BE[facility]ER)[address] [place] [address] Glucose [Mass/Vol] 118 mg/dL High 70-100 [facility] Comment on above: Performed By: #### L [id number] ####[facility] ([facility])[address] [place] [address] Potassium [Moles/Vol] 4.3 mmol/L Normal 3.5-5.1 [facility] Comment on above: Performed By: #### L [id number] ####[facility] ([facility])[address] [place] [address] Sodium [Moles/Vol] 139 mmol/L Normal 136-145 [facility] Comment on above: Performed By: #### L [id number] ####[facility] ([facility])[address] [place] [address] Urea nitrogen [Mass/Vol] 19 mg/dL Normal 7-25 [facility] Comment on above: Performed By: #### L [id number] ####[facility] ([facility])[address] [place] [address] UREA NITROGEN/CREATININE (MASS RATIO) IN SER/PLAS 11.5 Normal [facility] Comment on above: Performed By: #### L [id number] ####[facility] ([facility])[address] [place] [address] CBCon 02-14-2024 Erythrocyte distribution width (RBC) [Ratio] 13.8 % Normal 11.5-15.0 [facility] Comment on above: Performed By: #### L [id number] #### [facility] ([facility]) [address] [place] [address] ERYTHROCYTE MEAN CORPUSCULAR HEMOGLOBIN CONCENTRATION (G/DL) BY AUTOMATED 32.9 g/dL Normal 32.0-35.0 [facility] Comment on above: Performed By: #### L [id number] #### [facility] ([facility]) [address] [place] [address] Hematocrit (Bld) [Volume fraction] 38.0 % Low 39.0-55.0 [facility] Comment on above: Performed By: #### L [id number] #### [facility] ([facility] [address] [place] [address] Hemoglobin (Bld) [Mass/Vol] 12.5 g/dL Low 13.0-17.0 [facility] Comment on above: Performed By: #### L [id number] #### [facility] ([facility] [address] [place] [address] MCH (RBC) [Entitic mass] 30.1 pg Normal 27.0-33.0 [facility] Comment on above: Performed By: #### L [id number] #### [facility] ([facility] [address] [place] [address] MCV (RBC) [Entitic vol] 91.6 fL Normal 82.0-98.0 [facility] Comment on above: Performed By: #### L [id number] #### [facility] ([facility] [address] [place] [address] PLATELETS (10*3/UL) IN BLOOD AUTOMATED COUNT 176 10*3/uL Normal 150-400 [facility] Comment on above: Performed By: #### L [id number] #### [facility] ([facility] [address] [place] [address] RBC (Bld) [#/Vol] 4.15 10*6/uL Low 4.20-5.70 [facility] Comment on above: Performed By: #### L [id number] #### [facility] ([facility] [address] [place] [address] WBC (Bld) [#/Vol] 6.88 10*3/uL Normal 4.00-10.60 [facility] Comment on above: Performed By: #### L [id number] #### [facility] ([facility] [address] [place] [address] NURSNOTEon 02-14-2024 NURSNOTE Discharge instructio n given , patient verbalized understanding, no follow up questions asked Normal [facility] POCT GLUCOSE METER UNSOLICIT ED RESULTSon 02-14-2024 Glucose [Mass/Vol] 231 mg/dL High 70-105 [facility] Comment on above: Order Comment: Waive d Testing in the ED is performed under the ED CLIA certificate #[id number]. Result Comment: [email or web address] [email or web address] Performed By: #### L [id number] ####[facility] ([facility] [place] [address] Glucose [Mass/Vol] 128 mg/dL High 70-105 [facility] Comment on above: Order Comment: Waive d Testing in the ED is performed under the ED CLIA certificate #[id number]. Result Comment: [email or web address] enl3 Performed By: #### L [id number] #### [facility] ([facility] [address] [place] [address] TROPONIN Ion 02-14-2024 Troponin I.cardiac [Mass/Vol] 1.08 ng/mL Critically high 0.00-0.04 [facility] Comment on above: Result Comment: M-ID EVIOUS CRITICAL RESULT Previous result verified on 02/14/2024 0605 on specimen/case [id number] called with component Troponin I for procedure Troponin I with value 1.69 ng/mL. Performed By: #### L [id number] #### [facility] ([facility] [address] [place], [place] [address] Troponin I.cardiac [Mass/Vol] 1.69 ng/mL Critically high 0.00-0.04 [facility] Comment on above: Performed By: #### L [id number] ####[facility] ([facility] [place] [address] 30on 02-13-2024 30 The patient is Moder ately Stable - Low risk of patient condition declining or worsening The patient's goals for the shift include get better The clinical goals for the shift include VSS Normal [facility] 30 The patient is Moder [...] and behaviors that affect risk of falls Young Harris fall precautions as indicated by assessment Educate [...] and behaviors that affect risk of falls Young Harris fall precautions as indicated by assessment Educate patient/family on patient safety, including physical limitations Instruct patient to call for assistance with activity based on assessment Modify environment to reduce risk of injury Problem: Discharge Planning Goal: Discharge to home or other facility with appropriate resources 02/13/2024328 by Louis Lance RN Outcome: Progressing Flowsheets (Taken 02/13/2024 0321) Discharge to home or other facility with [...] and prevent overall improvement and discharge Normal [facility] ANTI-XA (HEPARIN LEVEL)on HEPARIN UNFRACTIONATED (U/ML) IN PPP BY CHROMOGENIC METHOD 0.85 IU/mL High 0.3-0.7 [facility] Comment on above: Order Comment: Check anti-Xa level every 6 hours while on heparin infusion, or per protocol. Result Comment: [place] roxaban and Apixaban will interfere with the anti Xa assay used to monitor UFH and LMWH. Performed By: #### L [id number] #### [facility] (BEAKER) [address] [place] [address] APTTon 02-13-2024 ACTIVATED PARTIAL THROMBOPLASTIN TIME IN PPP BY COAGULATION ASSAY 93.5 Seconds High 25.0-35.0 [facility] Comment on above: Order Comment: Basel ine aPTT before initiating heparin infusion. Result Comment: Clin ical significance of the APTT is questionable in the presence of heparin. Performed By: #### L [id number] #### [facility] (BEAKER) [address] [place] [address] B-TYPE NATRIURETIC PEPTIDEon 02-13-2024 Natriuretic peptide B (Bld) [Mass/Vol] 693 pg/mL High 0-100 [facility] Comment on above: Performed By: #### L [id number] #### [facility] (BEAKER) [address] [place] [address] BASIC METABOLIC PANELon 01-30 Anion gap [Moles/Vol] 10 mmol/L Normal 7-20 [facility] Comment on above: Performed By: #### L [id number] #### [facility] [address] [place] [address] Calcium [Mass/Vol] 8.9 mg/dL Normal 8.6-10.3 [facility] Comment on above: Performed By: #### L [id number] #### [facility] [address] [place] [address] Chloride [Moles/Vol] 107 mmol/L Normal 98-107 [facility] Comment on above: Performed By: #### L [id number] #### [facility] [address] [place] [address] CO2 [Moles/Vol] 25 mmol/L Normal 21-31 [facility] Comment on above: Performed By: #### L [id number] #### [facility] [address] [place] [address] Creatinine [Mass/Vol] 1.61 mg/dL High 0.70-1.30 [facility] Comment on above: Performed By: #### L [id number] #### [facility] [address] [place] [address] GLOMERULAR FILTRATION RATE ML/MIN/1.73 SQ M.PREDICTED 45.2 mL/min/1.73m*2 Low >60.0 [facility] Comment on above: Result Comment: The [facility]???s estimated glomerular filtration rate (eGFR) [...] individuals. Performed By: #### L [id number] #### [facility] ([facility] [address] [place] [address] Glucose [Mass/Vol] 174 mg/dL High 70-100 [facility] Comment on above: Performed By: #### L [id number] #### [facility] ([facility] [address] [place] [place] [address] Potassium [Moles/Vol] 4.3 mmol/L Normal 3.5-5.1 [facility] Comment on above: Performed By: #### L [id number] #### [facility] ([facility] [address] [place] [place] [address] Sodium [Moles/Vol] 138 mmol/L Normal 136-145 [facility] Comment on above: Performed By: #### L [id number] #### [facility] ([facility] [address] [place] [address] Urea nitrogen [Mass/Vol] 20 mg/dL Normal 7-25 [facility] Comment on above: Performed By: #### L [id number] #### [facility] ([facility] [address] [place] [address] UREA NITROGEN/CREATININE (MASS RATIO) IN SER/PLAS 12.4 Normal [facility] Comment on above: Performed By: #### L [id number] #### [facility] ([facility] [address] [place] [place] [address] CBC WITH AUTO DIFFERENTIALon 02-13-2024 Basophils (Bld) [#/Vol] 0.05 10*3/uL Normal 0.00-0.20 [facility] Comment on above: Performed By: #### L [id number] ####[facility] (BEAKER)[address] [place] [address] Basophils/100 WBC (Bld) 0.7 % Normal 0.0-1.0 [facility] Comment on above: Performed By: #### L [id number] ####[facility] (BEAKER)[address] [place] [address] Eosinophils (Bld) [#/Vol] 0.13 10*3/uL Normal 0.00-0.50 [facility] Comment on above: Performed By: #### L [id number] ####[facility] (BEAKER)[address] [place] [address] Eosinophils/100 WBC (Bld) 1.8 % Normal 0.0-6.0 [facility] Comment on above: Performed By: #### L [id number] ####[facility] (BEAKER)[address] [place] [address] Erythrocyte distribution width (RBC) [Ratio] 13.4 % Normal 11.5-15.0 [facility] Comment on above: Performed By: #### L [id number] ####[facility] (BEAKER)[address] [place] [address] ERYTHROCYTE MEAN CORPUSCULAR HEMOGLOBIN CONCENTRATION (G/DL) BY AUTOMATED 34.1 g/dL Normal 32.0-35.0 [facility] Comment on above: Performed By: #### L [id number] ####[facility] (BEAKER)[address] [place] [address] Hematocrit (Bld) [Volume fraction] 40.2 % Normal 39.0-55.0 [facility] Comment on above: Performed By: #### L [id number] ####[facility] (BEAKER)[address] [place] [address] Hemoglobin (Bld) [Mass/Vol] 13.7 g/dL Normal 13.0-17.0 [facility] Comment on above: Performed By: #### L [id number] ####[facility] (BEAKER)[address] [facility] [place] [address] Immature granulocytes (Bld) [#/Vol] 0.03 10*3/uL Normal 0.00-0.20 [facility] Comment on above: Performed By: #### L [id number] ####[facility] (BEAKER)[address] [place] [address] Immature granulocytes/100 WBC (Bld) 0.4 % Normal 0.0-1.0 [facility] Comment on above: Performed By: #### L [id number] ####[facility] [place] [address] Lymphocytes (Bld) [#/Vol] 1.64 10*3/uL Normal 1.20-4.00 [facility] Comment on above: Performed By: #### L [id number] ####[facility] ([facility] [place] [address] Lymphocytes/100 WBC (Bld) 22.3 % Normal 20.0-45.0 [facility] Comment on above: Performed By: #### L [id number] ####[facility] ([facility] [facility] [place] [address] MCH (RBC) [Entitic mass] 30.2 pg Normal 27.0-33.0 [facility] Comment on above: Performed By: #### L [id number] ####[facility] (BEAKER)[address] [facility] [place] [address] MCV (RBC) [Entitic vol] 88.5 fL Normal 82.0-98.0 [facility] Comment on above: Performed By: #### L [id number] ####[facility] (BEAKER)[address] [facility] [place] [address] Monocytes (Bld) [#/Vol] 0.69 10*3/uL Normal 0.10-1.00 [facility] Comment on above: Performed By: #### L [id number] ####[facility] (BEAKER)[address] [place] [address] Monocytes/100 WBC (Bld) 9.4 % Normal 5.0-12.0 [facility] Comment on above: Performed By: #### L [id number] ####[facility] ([facility] [place] [address] Neutrophils (Bld) [#/Vol] 4.80 10*3/uL Normal 1.60-7.60 [facility] Comment on above: Performed By: #### L [id number] ####[facility] ([facility] [place] [address] Neutrophils/100 WBC (Bld) 65.4 % Normal 40.0-72.0 [facility] Comment on above: Performed By: #### L [id number] ####[facility] ([facility] [place] [address] NRBC (PER 100 WBCS) BY AUTOMATED COUNT 0.0 % Normal 0 [facility] Comment on above: Performed By: #### L [id number] ####[facility] ([facility] [place] [address] PLATELETS (10*3/UL) IN BLOOD AUTOMATED COUNT 202 10*3/uL Normal 150-400 [facility] Comment on above: Performed By: #### L [id number] ####[facility] ([facility] [place] [address] RBC (Bld) [#/Vol] 4.54 10*6/uL Normal 4.20-5.70 [facility] Comment on above: Performed By: #### L [id number] ####[facility] ([facility] [place] [address] WBC (Bld) [#/Vol] 7.34 10*3/uL Normal 4.00-10.60 [facility] Comment on above: Performed By: #### L [id number] ####[facility] ([facility] [place] [address] CONSULTon 02-13-2024 CONSULT ----- ----- Attestation signed [...] III who presented as a transferred from [facility] with NSTEMI. Cardiology planning for cath [...] (H) 08/31 (more content not included)... Normal [facility] CONSULT ----- ----- Attestation signed [...] III who presented as a transferred from [facility] with NSTEMI. The patient complained of [...] and nitro drip. When he arrived to [facility] he was chest pain-free. Troponin this [...] PAIN pantoprazole (Pr (more content not included)... [facility] HPon 02-13-2024 HP H&P reviewed. The patient [...] were addressed and answered. Jenny Fernandez MD Car Icer - PGY6 [facility] seen and examined. Agree with above Parul Pena MD [facility] MAGNESIUMon 02-13-2024 Magnesium [Mass/Vol] 2.0 mg/dL Normal 1.9-2.7 [facility] Comment on above: Performed By: #### L [id number] #### [facility] (AKER) [address] [place] [address] POCT GLUCOSE METER UNSOLICIT ED RESULTSon 02-13-2024 Glucose [Mass/Vol] 200 mg/dL High 70-105 [facility] Comment on above: Order Comment: Waive d Testing in the ED is performed under the ED CLIA certificate #[id number]. Result Comment: roberto [email or web address] Performed By: #### L [id number] #### [facility] (BEAKER) [address] [place] [address] Glucose [Mass/Vol] 187 mg/dL High 70-105 [facility] Comment on above: Order Comment: Waive d Testing in the ED is performed under the ED CLIA certificate #[id number]. Result Comment: [email or web address] Performed By: #### L [id number] #### [facility] (BEAKER) [address] [place] [address] Glucose [Mass/Vol] 141 mg/dL High 70-105 [facility] Comment on above: Order Comment: Waive d Testing in the ED is performed under the ED CLIA certificate #[id number]. Result Comment: [email or web address] Performed By: #### L [id number] #### [facility] ([facility]) [address] [place] [address] Glucose [Mass/Vol] 166 mg/dL High 70-105 [facility] Comment on above: Order Comment: Waive d Testing in the ED is performed under the ED CLIA certificate #[id number]. Result Comment: [email or web address] Performed By: #### L [id number] #### [facility] ([employer]) [address] [place] [address] PROTIME-INRon 02-13-2024 INR IN PPP BY COAGULATION ASSAY 1.17 High 0.90-1.10 [facility] Comment on [...] CHEST 1995;108:[id number]. Performed By: #### L [id number] ####[facility] (BEAKER)[address] [place] [address] PROTHROMBIN TIME (PT) IN PPP BY COAGULATION ASSAY 14.9 Seconds High 12.3-14.8 [facility] Comment on above: Performed By: #### L [id number] ####[facility] ([facility] [place] [address] TROPONIN Ion 02-13-2024 Troponin I.cardiac [Mass/Vol] 2.02 ng/mL Critically high 0.00-0.04 [facility] Comment on above: Result Comment: M-ID EVIOUS CRITICAL RESULT Previous result verified on 02/13/2024 0606 on specimen/case [id number] called with component Troponin I for procedure Troponin I with value 3.34 ng/mL. Performed By: #### L [id number] #### [facility] ([facility] [address] [place] [address] Troponin I.cardiac [Mass/Vol] 2.10 ng/mL Critically high 0.00-0.04 [facility] Comment on above: Result Comment: M-ID EVIOUS CRITICAL RESULT Previous result verified on 02/13/2024 0606 on specimen/case [id number] called with component Troponin I for procedure Troponin I with value 3.34 ng/mL. Performed By: #### L [id number] ####[facility] ([facility] [place] [address] Troponin I.cardiac [Mass/Vol] 3.34 ng/mL Critically high 0.00-0.04 [facility] Comment on above: Result Comment: M-TR OPONIN INITIAL CRITICAL HIGH; RESPUN AND RETESTED Performed By: #### L [id number] #### [facility] ([facility] [address] [place] [address] Activated partial thrombopla stin time (aPTT) in platelet poor plasma by coagulation aon 02-12-2024 aPTT Coag (PPP) [Time] Activated partial thromboplastin time (aPTT) in platelet poor plasma by coagulation a 22.3-36.2 [facility] Basophils Auto (Bld) [#/Vol] on 02-12-2024 Basophils (Bld) [#/Vol] Automated basophil count 0.0-0.1 [facility] Basophils/100 WBC Auto (Bld) on 02-12-2024 Basophils/100 WBC (Bld) Automated basophil % 0.2-2.0 [facility] Eosinophils/100 WBC Auto (Bl d)on 02-12-2024 Eosinophils/100 WBC (Bld) Automated eosinophil % 0.9-7.0 [facility] Erythrocyte distribution wid th Auto (RBC) [Ratio]on 02-12-2024 Erythrocyte distribution width (RBC) [Ratio] Erythrocyte distribution width [Ratio] by Automated count 11.0-15.0 [facility] Estimated glomerular filtrat ion rate (GFR) non- Americanon 02-12-2024 GFR/1.73 sq M.predicted among non-blacks MDRD (S/P/Bld) [Vol rate/Area] Estimated glomerular filtration rate (GFR) non- Low >=60 mL/min/1.[address] [facility] Hematocrit Auto (Bld) [Volum e fraction]on 02-12-2024 Hematocrit (Bld) [Volume fraction] Hematocrit [Volume Fraction] of Blood by Automated count 42.0-54.0 [facility] Hemoglobin [Mass/volume] in Bloodon 02-12-2024 Hemoglobin (Bld) [Mass/Vol] Hemoglobin [Mass/volume] in Blood 14.0-18.0 [facility] INR in Platelet poor plasma by Coagulation assayon 02-12-2024 INR Coag (PPP) [Relative time] INR in Platelet poor plasma by Coagulation assay [facility] Comment on above: DESIRED INR:2.0-3.0 CONDITIONS NOT LISTED BELOW2.5-3.5 FOR PROSTHETIC HEART VALVE REPLACEMENT2.5-3.5 RECURRENT THROMBOSIS Laboratory - Chemistry and C hemistry - challengeon 02-12-2024 Calcium [Mass/Vol] 9.4 mg/dL 8.5-10.1 [facility] Chloride [Moles/Vol] 106 mmol/L 98-107 [facility] CO2 [Moles/Vol] 22.9 mmol/L 21.0-32.0 [facility] Creatinine [Mass/Vol] 1.97 mg/dL High 0.70-1.30 [facility] GFR/1.73 sq M.predicted MDRD (S/P/Bld) [Vol rate/Area] 41 mL/min/{1.73_m2} Low >=60 mL/min/1.[address] [facility] Glucose [Mass/Vol] 236 mg/dL High 74-106 [facility] Potassium [Moles/Vol] 3.9 mmol/L 3.5-5.1 [facility] Comment on above: SPECIMEN SLIGHTLY HE MOLYZED Sodium [Moles/Vol] 141 mmol/L 136-145 [facility] Urea nitrogen [Mass/Vol] 21.0 mg/dL High 7.0-18.0 [facility] Urea nitrogen/Creatinine [Mass ratio] 10.7 mg/mg [facility] Laboratory - Hematology and Cell countson 02-12-2024 Immature granulocytes/100 WBC (Bld) 0.5 % 0.0-0.5 [facility] Leukocytes [#/volume] correc soraya for nucleated erythrocytes in Blood by Automated counon 02-12-2024 WBC corrected for nucl RBC Auto (Bld) [#/Vol] Leukocytes [#/volume] corrected for nucleated erythrocytes in Blood by Automated coun 4.0-11.0 [facility] Lymphocytes Auto (Bld) [#/Vo l]on 02-12-2024 Lymphocytes (Bld) [#/Vol] Lymphocytes [#/volume] in Blood by Automated count 1.2-3.8 [facility] Lymphocytes/100 WBC Auto (Bl d)on 02-12-2024 Lymphocytes/100 WBC (Bld) Lymphocytes/100 leukocytes in Blood by Automated count 20.5-60.0 [facility] MCH Auto (RBC) [Entitic mass ]on 02-12-2024 MCH (RBC) [Entitic mass] MCH [Entitic mass] by Automated count 25.9-34.0 [facility] MCHC Auto (RBC) [Mass/Vol]on 02-12-2024 MCHC (RBC) [Mass/Vol] MCHC [Mass/volume] by Automated count 29.9-35.2 [facility] MCV Auto (RBC) [Entitic vol] on 02-12-2024 MCV (RBC) [Entitic vol] MCV [Entitic volume] by Automated count 80.0-94.0 [facility] Monocytes Auto (Bld) [#/Vol] on 02-12-2024 Monocytes (Bld) [#/Vol] Automated blood monocyte count 0.3-0.8 [facility] Monocytes/100 WBC Auto (Bld) on 02-12-2024 Monocytes/100 WBC (Bld) Automated monocyte % 1.7-12.0 [facility] Neutrophils Auto (Bld) [#/Vo l]on 02-12-2024 Neutrophils (Bld) [#/Vol] Neutrophils [#/volume] in Blood by Automated count 1.4-6.5 [facility] Neutrophils/100 WBC Auto (Bl d)on 02-12-2024 Neutrophils/100 WBC (Bld) Automated neutrophil % 43.0-75.0 [facility] No Panel Informationon 02-11 Troponin I High Sensitivity 85.0 pg/mL Critically high 4.0-76.1 [facility] Comment on above: RESULTS CALLED TO [...] Eosinophils # (Auto) 0.2 10 3/uL 0.0-0.7 [facility] Immature Granulocyte # (Auto) 0.04 10 3/uL High 0.00-0.03 [facility] Platelet mean volume Auto (B ld) [Entitic vol]on 02-12-2024 Platelet mean volume (Bld) [Entitic vol] Platelet mean volume [Entitic volume] in Blood by Automated count 9.5-13.5 [facility] Platelets Auto (Bld) [#/Vol] on 02-12-2024 Platelets (Bld) [#/Vol] Platelets [#/volume] in Blood by Automated count 150-450 [facility] Prothrombin time (PT)on 01-30 PT Coag (PPP) [Time] Prothrombin time (PT) 9.0- 11.6 [facility] RBC Auto (Bld) [#/Vol]on RBC (Bld) [#/Vol] Erythrocytes [#/volu me] in Blood by Automated count 4.70-6.10 [facility] Serum or plasma anion gap de terminationon 02-12-2024 Anion gap [Moles/Vol] Serum or plasma an ion gap determination [facility] Erythrocyte distribution wid th Auto (RBC) [Ratio]on 12-30-2023 Erythrocyte distribution width (RBC) [Ratio] 14.3 % 11.0-15.0 [facility] Estimated glomerular filtrat ion rate (GFR) non- Americanon 12-30-2023 GFR/1.73 sq M.predicted among non-blacks MDRD (S/P/Bld) [Vol rate/Area] 31 mL/min/{1.73_m2} Low >=60 [facility] Hematocrit Auto (Bld) [Volum e fraction]on 12-30-2023 Hematocrit (Bld) [Volume fraction] 45.2 % 42.0-54.0 [facility] Hemoglobin [Mass/volume] in Bloodon 12-30-2023 Hemoglobin (Bld) [Mass/Vol] 14.8 g/dL 14.0-18.0 [facility] Laboratory - Chemistry and C hemistry - challengeon 12-30-2023 Albumin [Mass/Vol] 3.8 g/dL 3.4-5.0 [facility] Calcium [Mass/Vol] 9.9 mg/dL 8.5-10.1 [facility] Chloride [Moles/Vol] 103 mmol/L 98-107 [facility] CO2 [Moles/Vol] 27.9 mmol/L 21.0-32.0 [facility] Creatinine [Mass/Vol] 2.10 mg/dL High 0.70-1.30 [facility] GFR/1.73 sq M.predicted MDRD (S/P/Bld) [Vol rate/Area] 38 mL/min/{1.73_m2} Low >=60 [facility] Glucose [Mass/Vol] 207 mg/dL High 74-106 [facility] Magnesium [Mass/Vol] 2.1 mg/dL 1.8-2.4 [facility] Potassium [Moles/Vol] 4.7 mmol/L 3.5-5.1 [facility] Sodium [Moles/Vol] 137 mmol/L 136-145 [facility] Urate [Mass/Vol] 4.1 mg/dL 3.5-7.2 [facility] Urea nitrogen [Mass/Vol] 29.0 mg/dL High 7.0-18.0 [facility] Urea nitrogen/Creatinine [Mass ratio] 13.8 mg/mg [facility] Laboratory - Urinalysison Protein (U) [Mass/Vol] 26.9 mg/dL High <=11.9 [facility] Leukocytes [#/volume] correc soraya for nucleated erythrocytes in Blood by Automated counon 12-30-2023 WBC corrected for nucl RBC Auto (Bld) [#/Vol] 8.7 10 3/uL 4.0-11.0 [facility] MCH Auto (RBC) [Entitic mass ]on 12-30-2023 MCH (RBC) [Entitic mass] 30.0 pg 25.9-34.0 [facility] MCHC Auto (RBC) [Mass/Vol]on 12-30-2023 MCHC (RBC) [Mass/Vol] 32.7 g/dL 29.9-35.2 [facility] MCV Auto (RBC) [Entitic vol] on 12-30-2023 MCV (RBC) [Entitic vol] 91.7 fL 80.0-94.0 [facility] No Panel Informationon 12-29 25-Hydroxy Vitamin D Total 47.5 ng/mL [facility] Comment on above: <20 ng/mL Vit D defi cient20-<30 ng/mL Vit D [id number] ng/mL Vit D sufficient>100 ng/mL Potential Toxicity Parathyroid Hormone (Intact) 27 pg/mL 15-65 [facility] Comment on above: Performed at: [address] [id number] Director: Kwaku Park PhD, Phone: [phone] Phosphorus Level 3.7 mg/dL 2.6-4.7 [facility] Urine Random Creatinine 85.11 mg/dL 20.00-300. 00 [facility] Platelet mean volume Auto (B ld) [Entitic vol]on 12-30-2023 Platelet mean volume (Bld) [Entitic vol] 9.3 fL Low 9.5-13.5 [facility] Platelets Auto (Bld) [#/Vol] on 12-30-2023 Platelets (Bld) [#/Vol] 193 10 3/uL 150-450 [facility] RBC Auto (Bld) [#/Vol]on RBC (Bld) [#/Vol] 4.93 10 6/uL 4.70-6.10 [facility] Serum or plasma anion gap de terminationon 12-30-2023 Anion gap [Moles/Vol] 10.8 mmol/L [facility] Urine protein/creatinine rat ioon 12-30-2023 Protein/Creatinine (U) [Ratio] 0.32 [facility] HbA1c HPLC (Bld) [Mass fract ion]on 10-17-2023 HbA1c (Bld) [Mass fraction] 7.5 % [facility] No Panel Informationon 10-[address] [facility] Office Visiton 10-07-2023 Follow-up visit [id number] Lani Lizama 1950 M Date Provider Department Center 10/07/2023 [facility]ARCELINO Armas Family History Problem Relation Age of Onset Heart attack Mother Other Father Other Brother Heart attack Maternal Grandmother Heart attack Maternal Grandfather Family Status - Relation Status Age at Mother Father Brother Maternal Grandmother Maternal Grandfather Level of Service:[id number] ID OFFICE/OUTPATIENT ESTABLISHED LOW MDM 20 MIN Normal [facility] Center 30on 09-28-2023 30 The patient [...] to stop on the way home. Normal [facility] BASIC METABOLIC PANELon - Anion gap [Moles/Vol] 13 mmol/L Normal 7-20 [facility] Comment on above: Performed By: #### L [id number] ####[facility] ([facility] [place] [address] Calcium [Mass/Vol] 8.8 mg/dL Normal 8.6-10.3 [facility] Comment on above: Performed By: #### L [id number] ####[facility] ([facility] [place] [address] Chloride [Moles/Vol] 104 mmol/L Normal 98-107 [facility] Comment on above: Performed By: #### L [id number] ####[facility] ([facility] [place] [address] CO2 [Moles/Vol] 24 mmol/L Normal 21-31 [facility] Comment on above: Performed By: #### L [id number] ####[facility] ([facility] [place] [address] Creatinine [Mass/Vol] 1.59 mg/dL High 0.70-1.30 [facility] Comment on above: Performed By: #### L [id number] ####[facility] ([facility] [place] [address] GLOMERULAR FILTRATION RATE ML/MIN/1.73 SQ M.PREDICTED 46.1 mL/min/1.73m*2 Low >60.0 [facility] Comment on above: Result Comment: [facility]???s estimated glomerular filtration rate (eGFR) [...] of individuals. Performed By: #### L [id number] ####[facility] ([facility])[address] [place] [address] Glucose [Mass/Vol] 188 mg/dL High 70-100 [facility] Comment on above: Performed By: #### L [id number] ####[facility] ([facility])[address] [place] [address] Potassium [Moles/Vol] 4.1 mmol/L Normal 3.5-5.1 [facility] Comment on above: Performed By: #### L [id number] ####[facility] ([facility])[address] [place] [address] Sodium [Moles/Vol] 137 mmol/L Normal 136-145 [facility] Comment on above: Performed By: #### L [id number] ####[facility] ([facility])[address] [place] [address] Urea nitrogen [Mass/Vol] 26 mg/dL High 7-25 [facility] Comment on above: Performed By: #### L [id number] ####[facility] ([facility])[address] [place] [address] UREA NITROGEN/CREATININE (MASS RATIO) IN SER/PLAS 16.4 Normal [facility] Comment on above: Performed By: #### L [id number] ####[facility] ([facility])[address] [place] [address] CBCon 09-28-2023 Erythrocyte distribution width (RBC) [Ratio] 14.2 % Normal 11.5-15.0 [facility] Comment on above: Performed By: #### L [id number] #### [facility] [address] [place] [address] ERYTHROCYTE MEAN CORPUSCULAR HEMOGLOBIN CONCENTRATION (G/DL) BY AUTOMATED 33.2 g/dL Normal 32.0-35.0 [facility] Comment on above: Performed By: #### L [id number] #### [facility] [address] [place] [address] Hematocrit (Bld) [Volume fraction] 43.4 % Normal 39.0-55.0 [facility] Comment on above: Performed By: #### L [id number] #### [facility] ([facility] [address] [place] [address] Hemoglobin (Bld) [Mass/Vol] 14.4 g/dL Normal 13.0-17.0 [facility] Comment on above: Performed By: #### L [id number] #### [facility] [address] [place] [address] MCH (RBC) [Entitic mass] 28.4 pg Normal 27.0-33.0 [facility] Comment on above: Performed By: #### L [id number] #### [facility] ([facility] [address] [place] [address] MCV (RBC) [Entitic vol] 85.6 fL Normal 82.0-98.0 [facility] Comment on above: Performed By: #### L [id number] #### [facility] [address] [place] [address] PLATELETS (10*3/UL) IN BLOOD AUTOMATED COUNT 159 10*3/uL Normal 150-400 [facility] Comment on above: Performed By: #### L [id number] #### [facility] ([facility] [address] [place] [address] RBC (Bld) [#/Vol] 5.07 10*6/uL Normal 4.20-5.70 [facility] Comment on above: Performed By: #### L [id number] #### [facility] ([facility] [address] [place] [address] WBC (Bld) [#/Vol] 7.88 10*3/uL Normal 4.00-10.60 [facility] Comment on above: Performed By: #### L [id number] #### [facility] ([facility] [address] [place] [address] POCT GLUCOSE METER UNSOLICIT ED RESULTSon 09-28-2023 Glucose [Mass/Vol] 176 mg/dL High 70-105 [facility] Comment on above: Order Comment: Waive d Testing in the ED is performed under the ED CLIA certificate #[id number]. Result Comment: [email or web address] Performed By: #### L [id number] ####[facility] ([facility] [place] [address] 30on 09-27-2023 30 Problem: Pain - Adul [...] shift include stable VS, cardiac cath Normal [facility] 30 Daily Case Managemen t Update Multidisciplinary rounds have been completed. Barriers to Discharge: Patient is a direct admitted from [place], due chest pain and elevated troponin. Tx to [facility], most recent Cardiology consulted and are planning to take patient for heart cath today. Discharge dispo: pending clinical course, at this time plan is for patient to discharge home when medically ready. Diet: Dietary Orders (From admission, onward) Start Ordered 09/27/23 0001 Diet NPO Diet effective midnight Comments: Ice Chips Question: Reason for NPO: Answer: Operation/Procedure 09/26/23 6073 Physician Expected Discharge Date: 09/28/2023 Discharge Delays: PT Six Click Score: 24 OT Six Click Score: PT Recommendations: OT Recommendations: New Consults: Consult Orders (From admission, onward) Start Ordered 09/26/23 171 Inpatient consult to Cardiology Once Specialty: Cardiology Provider: (Not yet assigned) Question Answer Comment [employer] CARDIOLOGY TEAM Reason for Consult? [email or web address] Level of Consultation Consultation and Management 09/26/23 1713 Normal [facility] 30 The patient is Moder [...] and maintained or improved Outcome: Progressing Normal [facility] ANTI-XA (HEPARIN LEVEL)on HEPARIN UNFRACTIONATED (U/ML) IN PPP BY CHROMOGENIC METHOD 0.47 IU/mL Normal 0.3-0.7 [facility] Comment on above: Order Comment: Check anti-Xa level every 6 hours while on heparin infusion, or per protocol. Result Comment: Rhona roxaban and Apixaban will interfere with the anti Xa assay used to monitor UFH and LMWH. Performed By: #### L [id number] ####[facility] ([facility])[address] [place] [address] HEPARIN UNFRACTIONATED (U/ML) IN PPP BY CHROMOGENIC METHOD 0.55 IU/mL Normal 0.3-0.7 [facility] Comment on above: Order Comment: Check anti-Xa level every 6 hours while on heparin infusion, or per protocol. Result Comment: Rhona roxaban and Apixaban will interfere with the anti Xa assay used to monitor UFH and LMWH. Performed By: #### L [id number] #### [facility] ([facility]) [address] [place] [address] BASIC METABOLIC PANELon 08-31 Anion gap [Moles/Vol] 16 mmol/L Normal 7-20 [facility] Comment on above: Performed By: #### L [id number] #### [facility] ([facility] [address] [place] [address] Calcium [Mass/Vol] 9.2 mg/dL Normal 8.6-10.3 [facility] Comment on above: Performed By: #### L [id number] #### [facility] ([facility] [address] [place] [address] Chloride [Moles/Vol] 105 mmol/L Normal 98-107 [facility] Comment on above: Performed By: #### L [id number] #### [facility] ([facility] [address] [place] [address] CO2 [Moles/Vol] 23 mmol/L Normal 21-31 [facility] Comment on above: Performed By: #### L [id number] #### [facility] ([facility] [address] [place] [address] Creatinine [Mass/Vol] 1.56 mg/dL High 0.70-1.30 [facility] Comment on above: Performed By: #### L [id number] #### [facility] ([facility] [address] [place] [address] GLOMERULAR FILTRATION RATE ML/MIN/1.73 SQ M.PREDICTED 47.2 mL/min/1.73m*2 Low >60.0 [facility] Comment on above: Result Comment: [facility]???s estimated glomerular filtration rate (eGFR) [...] individuals. Performed By: #### L [id number] #### [facility] ([facility] [address] [place] [address] Glucose [Mass/Vol] 166 mg/dL High 70-100 [facility] Comment on above: Performed By: #### L [id number] #### [facility] ([facility] [address] [place] [address] Potassium [Moles/Vol] 4.3 mmol/L Normal 3.5-5.1 [facility] Comment on above: Performed By: #### L [id number] #### [facility] ([facility] [address] [place] [address] Sodium [Moles/Vol] 140 mmol/L Normal 136-145 [facility] Comment on above: Performed By: #### L [id number] #### [facility] ([facility] [address] [place] [address] Urea nitrogen [Mass/Vol] 26 mg/dL High 7-25 [facility] Comment on above: Performed By: #### L [id number] #### [facility] ([facility] [address] [place] [address] UREA NITROGEN/CREATININE (MASS RATIO) IN SER/PLAS 16.7 Normal [facility] Comment on above: Performed By: #### L [id number] #### [facility] ([facility] [address] [place] [address] CBCon 09-27-2023 Erythrocyte distribution width (RBC) [Ratio] 14.4 % Normal 11.5-15.0 [facility] Comment on above: Performed By: #### L [id number] ####[facility] ([facility] [place] [address] ERYTHROCYTE MEAN CORPUSCULAR HEMOGLOBIN CONCENTRATION (G/DL) BY AUTOMATED 33.1 g/dL Normal 32.0-35.0 [facility] Comment on above: Performed By: #### L [id number] ####[facility] ([facility] [place] [address] Hematocrit (Bld) [Volume fraction] 46.2 % Normal 39.0-55.0 [facility] Comment on above: Performed By: #### L [id number] ####[facility] ([facility] [place] [address] Hemoglobin (Bld) [Mass/Vol] 15.3 g/dL Normal 13.0-17.0 [facility] Comment on above: Performed By: #### L [id number] ####[facility] ([facility] [place] [address] MCH (RBC) [Entitic mass] 28.7 pg Normal 27.0-33.0 [facility] Comment on above: Performed By: #### L [id number] ####[facility] ([facility] [place] [address] MCV (RBC) [Entitic vol] 86.7 fL Normal 82.0-98.0 [facility] Comment on above: Performed By: #### L [id number] ####[facility] ([facility] [place] [address] PLATELETS (10*3/UL) IN BLOOD AUTOMATED COUNT 158 10*3/uL Normal 150-400 [facility] Comment on above: Performed By: #### L [id number] ####[facility] ([facility] [place] [address] RBC (Bld) [#/Vol] 5.33 10*6/uL Normal 4.20-5.70 [facility] Comment on above: Performed By: #### L [id number] ####[facility] ([facility] [place] [address] WBC (Bld) [#/Vol] 7.95 10*3/uL Normal 4.00-10.60 [facility] Comment on above: Performed By: #### L [id number] ####[facility] [place] [address] CONSULTon 09-27-2023 CONSULT Cardiology Consult N ote [...] with elevated troponin consistent with non-ST elevation HI. The patient has known history of coronary [...] disease, 3rd degree heart block (s/p BiV CAUSTIC MIXER-D) that presented to outside hospital w/ c/o chest pain that radiated to left arm and jaw. Pain was described as centrally-located and pressure-like, and unrelieved by Nitroglycerin x3. Patient started on nitroglycerin drip which provided relief. Initial high sensitivity troponin was unremarkable, but repeat was elevated (2962). He was started on heparin and transferred to [facility] for further evaluation. We were consulted [...] artery stenosis, Coronary artery disease, Diabetes mellitus ([facility]), Hyperlipidemia, Hypertension, PVD (peripheral vascular disease) ([facility]), and Third degree heart block ([facility]). Surgical History He has a [...] insulin dete (more content not included)... Normal [facility] HPon 09-27-2023 HP H&P reviewed. The pa deedee was interviewed and examined. 72 y/o male with a significant PMHx for HFpEF (NYHA class 3), coronary artery disease [s/p 5 vessel CABG (patient reports CABG performed in 1995), 7 stents with most recent cath in Dec 2022 with patent grafts x4], DM2, hyperlipidemia, peripheral vascular disease, 3rd degree heart block (s/p BiV CAUSTIC MIXER-D) that presented to outside hospital w/ c/o chest pain found to have NSTEM (trop peak at 4.2) Will proceed with coronary and grafts angiogram for further assessment. Procedure's details, risks and benefits discussed with the patient and he's agreeable. Normal [facility] LIPID PANELon 09-27-2023 CHOL/HDL 3.5 mg/dL Normal [facility] Comment on above: Performed By: #### L [id number] ####[facility] ([facility] [place] [address] Cholesterol [Mass/Vol] 108 mg/dL Low 120-200 [facility] Comment on above: Performed By: #### L [id number] ####[facility] ([facility] [place] [address] Magnesium [Mass/Vol] 148 mg/dL Normal 40-149 [facility] Comment on above: Result Comment: TRIG LYCERIDE REFERENCE RANGE: 20 YEARS AND OLDER CARDIOVASCULAR RISK LESS THAN 150 mg/dL LOW RISK 150 TO 199 mg/dL BORDERLINE RISK 200 mg/dL AND GREATER HIGH RISK Performed By: #### L [id number] ####[facility] ([employer])[address] [place] [address] Magnesium [Mass/Vol] 47 mg/dL Normal 0-160 [facility] Comment on above: Performed By: #### L [id number] ####[facility] ([employer])[address] [place] [address] Magnesium [Mass/Vol] 31 mg/dL Normal 23-92 [facility] Comment on above: Performed By: #### L [id number] ####[facility] ([facility] [place] [address] NON HDL CHOL. (LDL+VLDL) 77 Normal [facility] Comment on above: Performed By: #### L [id number] ####[facility] ([facility] [place] [address] TOTAL VLDL-C 30 mg/dL Normal 0-40 [facility] Comment on above: Performed By: #### L [id number] ####[facility] ([facility] [place] [address] POCT GLUCOSE METER UNSOLICIT ED RESULTSon 09-27-2023 Glucose [Mass/Vol] 299 mg/dL High 70-105 [facility] Comment on above: Order Comment: Waive d Testing in the ED is performed under the ED CLIA certificate #[id number]. Result Comment: roberto macias Performed By: #### L [id number] ####[facility] ([facility] [place] [address] Glucose [Mass/Vol] 140 mg/dL High 70-105 [facility] Comment on above: Order Comment: Waive d Testing in the ED is performed under the ED CLIA certificate #[id number]. Result Comment: [email or web address] Performed By: #### L [id number] #### [facility] ([facility] [address] [place] [address] Glucose [Mass/Vol] 193 mg/dL High 70-105 [facility] Comment on above: Order Comment: Waive d Testing in the ED is performed under the ED CLIA certificate #[id number]. Result Comment: martin solano Performed By: #### L [id number] ####[facility] ([facility] [place] [address] Glucose [Mass/Vol] 184 mg/dL High 70-105 [facility] Comment on above: Order Comment: Waive d Testing in the ED is performed under the ED CLIA certificate #[id number]. Result Comment: martin solano Performed By: #### L [id number] #### [facility] ([facility] [address] [place] [address] TROPONIN Ion 09-27-2023 Troponin I.cardiac [Mass/Vol] 3.05 ng/mL Critically high 0.00-0.04 [facility] Comment on above: Result Comment: M-ID EVIOUS CRITICAL RESULT Previous result verified on 09/27/2023 0117 on specimen/case [id number] called with component Troponin I for procedure Troponin I with value 3.51 ng/mL. Performed By: #### L [id number] ####[facility] ([facility] [place] [address] 30on 09-26-2023 30 The patient is Moder ately Stable - Low risk of patient condition declining or worsening The patient's goals for the shift include Comfort/Rest The clinical goals for the shift include stable vital signs Normal [facility] ANTI-XA (HEPARIN LEVEL)on HEPARIN UNFRACTIONATED (U/ML) IN PPP BY CHROMOGENIC METHOD 0.82 IU/mL High 0.3-0.7 [facility] Comment on above: Order Comment: Check anti-Xa level every 6 hours while on heparin infusion, or per protocol. Result Comment: Rhona roxaban and Apixaban will interfere with the anti Xa assay used to monitor UFH and LMWH. Performed By: #### L [id number] #### [facility] ([facility] [address] [place] [address] APTTon 09-26-2023 ACTIVATED PARTIAL THROMBOPLASTIN TIME IN PPP BY COAGULATION ASSAY 34.7 Seconds Normal 25.0-35.0 [facility] Comment on above: Order Comment: Basel ine aPTT before initiating heparin infusion. Result Comment: Clin ical significance of the APTT is questionable in the presence of heparin. Performed By: #### L [id number] #### [facility] ([facility] [address] [place] [address] Activated partial thrombopla stin time (aPTT) in platelet poor plasma by coagulation aon 09-26-2023 aPTT Coag (PPP) [Time] 28.8 s 22.3-36.2 [facility] Basophils Auto (Bld) [#/Vol] on 09-26-2023 Basophils (Bld) [#/Vol] 0.1 10 3/uL 0.0-0.1 [facility] Basophils/100 WBC Auto (Bld) on 09-26-2023 Basophils/100 WBC (Bld) 0.6 % 0.2-2.0 [facility] CBCon 09-26-2023 Erythrocyte distribution width (RBC) [Ratio] 14.3 % Normal 11.5-15.0 [facility] Comment on above: Performed By: #### L [id number] #### [facility] ([facility]) [address] [place] [address] ERYTHROCYTE MEAN CORPUSCULAR HEMOGLOBIN CONCENTRATION (G/DL) BY AUTOMATED 33.1 g/dL Normal 32.0-35.0 [facility] Comment on above: Performed By: #### L [id number] #### [facility] ([facility]) [address] [place] [address] Hematocrit (Bld) [Volume fraction] 48.7 % Normal 39.0-55.0 [facility] Comment on above: Performed By: #### L [id number] #### [facility] ([facility]) [address] [place] [address] Hemoglobin (Bld) [Mass/Vol] 16.1 g/dL Normal 13.0-17.0 [facility] Comment on above: Performed By: #### L [id number] #### [facility] ([facility]) [address] [place] [address] MCH (RBC) [Entitic mass] 28.8 pg Normal 27.0-33.0 [facility] Comment on above: Performed By: #### L [id number] #### [facility] ([facility]) [address] [place] [address] MCV (RBC) [Entitic vol] 87.0 fL Normal 82.0-98.0 [facility] Comment on above: Performed By: #### L [id number] #### [facility] ([facility] [address] [place] [address] PLATELETS (10*3/UL) IN BLOOD AUTOMATED COUNT 170 10*3/uL Normal 150-400 [facility] Comment on above: Performed By: #### L [id number] #### [facility] ([facility] [address] [place] [address] RBC (Bld) [#/Vol] 5.60 10*6/uL Normal 4.20-5.70 [facility] Comment on above: Performed By: #### L [id number] #### [facility] ([facility] [address] [place] [address] WBC (Bld) [#/Vol] 7.75 10*3/uL Normal 4.00-10.60 [facility] Comment on above: Performed By: #### L [id number] #### [facility] ([facility] [address] [place] [address] COMPREHENSIVE METABOLIC PANE Mike 09-26-2023 Albumin [Mass/Vol] 4.3 g/dL Normal 3.5-5.7 [facility] Comment on above: Performed By: #### L [id number] #### [facility] ([facility] [address] [place] [address] ALP [Catalytic activity/Vol] 100 U/L Normal 34-104 [facility] Comment on above: Performed By: #### L [id number] #### [facility] [address] [place] [address] ALT [Catalytic activity/Vol] 20 U/L Normal 7-52 [facility] Comment on above: Performed By: #### L [id number] #### [facility] [address] [place] [address] Anion gap [Moles/Vol] 15 mmol/L Normal 7-20 [facility] Comment on above: Performed By: #### L [id number] #### [facility] ([facility]) [address] [place] [address] AST [Catalytic activity/Vol] 50 U/L High 13-39 [facility] Comment on above: Performed By: #### L [id number] #### [facility] ([facility]) [address] [place] [address] Bilirubin [Mass/Vol] 1.1 mg/dL High 0.3-1.0 [facility] Comment on above: Performed By: #### L [id number] #### [facility] ([facility]) [address] [place] [address] Calcium [Mass/Vol] 9.4 mg/dL Normal 8.6-10.3 [facility] Comment on above: Performed By: #### L [id number] #### [facility] ([facility] [address] [place] [address] Chloride [Moles/Vol] 104 mmol/L Normal 98-107 [facility] Comment on above: Performed By: #### L [id number] #### [facility] [address] [place] [address] CO2 [Moles/Vol] 26 mmol/L Normal 21-31 [facility] Comment on above: Performed By: #### L [id number] #### [facility] (BEAKER) [address] [place] [address] Creatinine [Mass/Vol] 1.45 mg/dL High 0.70-1.30 [facility] Comment on above: Performed By: #### L [id number] #### [facility] [address] [place] [address] GLOMERULAR FILTRATION RATE ML/MIN/1.73 SQ M.PREDICTED 51.5 mL/min/1.73m*2 Low >60.0 [facility] Comment on above: Result Comment: [facility]???s estimated glomerular filtration rate (eGFR) [...] individuals. Performed By: #### L [id number] #### [facility] ([facility] [address] [place] [address] Glucose [Mass/Vol] 141 mg/dL High 70-100 [facility] Comment on above: Performed By: #### L [id number] #### [facility] ([facility] [address] [place] [address] Potassium [Moles/Vol] 4.2 mmol/L Normal 3.5-5.1 [facility] Comment on above: Performed By: #### L [id number] #### [facility] ([facility] [address] [place] [address] Protein [Mass/Vol] 7.4 g/dL Normal 6.0-8.3 [facility] Comment on above: Performed By: #### L [id number] #### [facility] ([facility] [address] [place] [address] Sodium [Moles/Vol] 141 mmol/L Normal 136-145 [facility] Comment on above: Performed By: #### L [id number] #### [facility] ([facility] [address] [place] [address] Urea nitrogen [Mass/Vol] 24 mg/dL Normal 7-25 [facility] Comment on above: Performed By: #### L [id number] #### [facility] ([facility] [address] [place] [address] UREA NITROGEN/CREATININE (MASS RATIO) IN SER/PLAS 16.6 Normal [facility] Comment on above: Performed By: #### L [id number] #### [facility] (BEAKER) [address] [place] [address] Eosinophils/100 WBC Auto (Bl d)on 09-26-2023 Eosinophils/100 WBC (Bld) 2.4 % 0.9-7.0 [facility] Erythrocyte distribution wid th Auto (RBC) [Ratio]on 09-26-2023 Erythrocyte distribution width (RBC) [Ratio] 14.3 % 11.0-15.0 [facility] Estimated glomerular filtrat ion rate (GFR) non- Americanon 09-26-2023 GFR/1.73 sq M.predicted among non-blacks MDRD (S/P/Bld) [Vol rate/Area] 39 mL/min/{1.73_m2} Low >=60 [facility] Globulin Calc (S) [Mass/Vol] on 09-26-2023 Globulin (S) [Mass/Vol] 4.0 g/dL [facility] HPon 09-26-2023 HP History Of Present Illness Lani Lizama is a 72 y.o. male presenting with patient is a 72-year-old gentleman with history of coronary atherosclerosisChest pain. 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 Patient woke up with chest pain around [...] wasstarted on heparin and was transferred to [facility] for further cares. Creatinine was 1.7. [...] artery stenosis, Coronary artery disease, Diabetes mellitus ([facility]), Hyperlipidemia, Hypertension, PVD (peripheral vascular disease) ([facility]), and Third degree heart block ([facility]). Surgical History He has a [...] and nontoxic (more content not included)... Normal [facility] Hematocrit Auto (Bld) [Volum e fraction]on 09-26-2023 Hematocrit (Bld) [Volume fraction] 49.4 % 42.0-54.0 [facility] Hemoglobin [Mass/volume] in Bloodon 09-26-2023 Hemoglobin (Bld) [Mass/Vol] 16.0 g/dL 14.0-18.0 [facility] INR in Platelet poor plasma by Coagulation assayon 09-26-2023 INR Coag (PPP) [Relative time] 0.99 {INR} [facility] Comment on above: DESIRED INR:2.0-3.0 CONDITIONS NOT LISTED BELOW2.5-3.5 FOR PROSTHETIC HEART VALVE REPLACEMENT2.5-3.5 RECURRENT THROMBOSIS LACTIC ACID WITH 4 HOUR REFL EXon 09-26-2023 LACTATE (MMOL/L) IN SER/PLAS 1.1 mmol/L Normal 0.5-2.2 [facility] Comment on above: Performed By: #### L [id number] #### [facility] (BEAKER) [address] [place] [address] Laboratory - Chemistry and C hemistry - challengeon 09-26-2023 Albumin [Mass/Vol] 4.1 g/dL 3.4-5.0 [facility] ALP [Catalytic activity/Vol] 146 U/L High 46-116 [facility] ALT [Catalytic activity/Vol] 32 U/L 16-63 [facility] AST [Catalytic activity/Vol] 26 U/L 15-37 [facility] Bilirubin [Mass/Vol] 0.7 mg/dL 0.2-1.0 [facility] Calcium [Mass/Vol] 9.2 mg/dL 8.5-10.1 [facility] Chloride [Moles/Vol] 104 mmol/L 98-107 [facility] CO2 [Moles/Vol] 24.8 mmol/L 21.0-32.0 [facility] Creatinine [Mass/Vol] 1.72 mg/dL High 0.70-1.30 [facility] GFR/1.73 sq M.predicted MDRD (S/P/Bld) [Vol rate/Area] 48 mL/min/{1.73_m2} Low >=60 [facility] Glucose [Mass/Vol] 206 mg/dL High 74-106 [facility] Potassium [Moles/Vol] 4.2 mmol/L 3.5-5.1 [facility] Protein [Mass/Vol] 8.1 g/dL 6.4-8.2 [facility] Sodium [Moles/Vol] 141 mmol/L 136-145 [facility] Urea nitrogen [Mass/Vol] 26.0 mg/dL High 7.0-18.0 [facility] Urea nitrogen/Creatinine [Mass ratio] 15.1 mg/mg [facility] Laboratory - Hematology and Cell countson 09-26-2023 Immature granulocytes/100 WBC (Bld) 0.3 % 0.0-0.5 [facility] Leukocytes [#/volume] correc soraya for nucleated erythrocytes in Blood by Automated counon 09-26-2023 WBC corrected for nucl RBC Auto (Bld) [#/Vol] 10.5 10 3/uL 4.0-11.0 [facility] Lymphocytes Auto (Bld) [#/Vo l]on 09-26-2023 Lymphocytes (Bld) [#/Vol] 2.0 10 3/uL 1.2-3.8 [facility] Lymphocytes/100 WBC Auto (Bl d)on 09-26-2023 Lymphocytes/100 WBC (Bld) 18.7 % Low 20.5-60.0 [facility] MCH Auto (RBC) [Entitic mass ]on 09-26-2023 MCH (RBC) [Entitic mass] 28.4 pg 25.9-34.0 [facility] MCHC Auto (RBC) [Mass/Vol]on 09-26-2023 MCHC (RBC) [Mass/Vol] 32.4 g/dL 29.9-35.2 [facility] MCV Auto (RBC) [Entitic vol] on 09-26-2023 MCV (RBC) [Entitic vol] 87.7 fL 80.0-94.0 [facility] Monocytes Auto (Bld) [#/Vol] on 09-26-2023 Monocytes (Bld) [#/Vol] 0.8 10 3/uL 0.3-0.8 [facility] Monocytes/100 WBC Auto (Bld) on 09-26-2023 Monocytes/100 WBC (Bld) 7.3 % 1.7-12.0 [facility] Neutrophils Auto (Bld) [#/Vo l]on 09-26-2023 Neutrophils (Bld) [#/Vol] 7.4 10 3/uL High 1.4-6.5 [facility] Neutrophils/100 WBC Auto (Bl d)on 09-26-2023 Neutrophils/100 WBC (Bld) 70.7 % 43.0-75.0 [facility] No Panel Informationon 09-25 Troponin I High Sensitivity 8614.2 pg/mL High 4.0-76.1 [facility] Comment on above: RESULTS CALLED TO [...] Eosinophils # (Auto) 0.3 10 3/uL 0.0-0.7 [facility] Immature Granulocyte # (Auto) 0.03 10 3/uL 0.00-0.03 [facility] POCT GLUCOSE METER UNSOLICIT ED RESULTSon 09-26-2023 Glucose [Mass/Vol] 286 mg/dL High 70-105 [facility] Comment on above: Order Comment: Waive d Testing in the ED is performed under the ED CLIA certificate #[id number]. Result Comment: roberto macias Performed By: #### L [id number] ####[facility] (BEAKER)[address] [place] [address] Glucose [Mass/Vol] 151 mg/dL High 70-105 [facility] Comment on above: Order Comment: Waive d Testing in the ED is performed under the ED CLIA certificate #[id number]. Result Comment: [email or web address] Performed By: #### L [id number] #### [facility] (BEAKER) [address] [place] [address] Platelet mean volume Auto (B ld) [Entitic vol]on 09-26-2023 Platelet mean volume (Bld) [Entitic vol] 10.0 fL 9.5-13.5 [facility] Platelets Auto (Bld) [#/Vol] on 09-26-2023 Platelets (Bld) [#/Vol] 194 10 3/uL 150-450 [facility] Prothrombin time (PT)on 08-31 PT Coag (PPP) [Time] 10.5 s 9.0-11.6 [facility] RBC Auto (Bld) [#/Vol]on RBC (Bld) [#/Vol] 5.63 10 6/uL 4.70-6.10 [facility] Serum or plasma albumin/glob ulin mass ratioon 09-26-2023 Albumin/Globulin [Mass ratio] 1.0 {ratio} [facility] Serum or plasma anion gap de terminationon 09-26-2023 Anion gap [Moles/Vol] 16.4 mmol/L [facility] TROPONIN Ion 09-26-2023 Troponin I.cardiac [Mass/Vol] 3.51 ng/mL Critically high 0.00-0.04 [facility] Comment on above: Result Comment: M-ID EVIOUS CRITICAL RESULT Previous result verified on 09/26/2023 2309 on specimen/case [id number] called with component Troponin I for procedure Troponin I with value 3.41 ng/mL. Performed By: #### L [id number] #### [facility] (BEAKER) [address] [place] [address] Troponin I.cardiac [Mass/Vol] 3.41 ng/mL Critically high 0.00-0.04 [facility] Comment on above: Result Comment: M-ID EVIOUS CRITICAL RESULT Previous result verified on 09/26/2023 1926 on specimen/case [id number] called with component Troponin I for procedure Troponin I with value 4.22 ng/mL. Performed By: #### L [id number] #### [facility] (BEAKER) [address] [place] [address] Troponin I.cardiac [Mass/Vol] 4.22 ng/mL Critically high 0.00-0.04 [facility] Comment on above: Result Comment: M-TR OPONIN INITIAL CRITICAL HIGH; RESPUN AND RETESTED Performed By: #### L [id number] ####[facility] (BEAKER)[address] [place] [address] No Panel Informationon 08-26 Prostate Specific Antigen Screen 1.37 ng/mL <=4.00 [facility] Erythrocyte distribution wid th Auto (RBC) [Ratio]on 06-24-2023 Erythrocyte distribution width (RBC) [Ratio] 14.6 % 11.0-15.0 [facility] Estimated glomerular filtrat ion rate (GFR) non- Americanon 06-24-2023 GFR/1.73 sq M.predicted among non-blacks MDRD (S/P/Bld) [Vol rate/Area] 38 mL/min/{1.73_m2} >=60 [facility] Hematocrit Auto (Bld) [Volum e fraction]on 06-24-2023 Hematocrit (Bld) [Volume fraction] 46.2 % 42.0-54.0 [facility] Hemoglobin [Mass/volume] in Bloodon 06-24-2023 Hemoglobin (Bld) [Mass/Vol] 14.5 g/dL 14.0-18.0 [facility] Laboratory - Chemistry and C hemistry - challengeon 06-24-2023 Albumin [Mass/Vol] 4.0 g/dL 3.4-5.0 [facility] Calcium [Mass/Vol] 9.2 mg/dL 8.5-10.1 [facility] Chloride [Moles/Vol] 106 mmol/L 98-107 [facility] CO2 [Moles/Vol] 25.4 mmol/L 21.0-32.0 [facility] Creatinine [Mass/Vol] 1.76 mg/dL 0.70-1.30 [facility] GFR/1.73 sq M.predicted MDRD (S/P/Bld) [Vol rate/Area] 47 mL/min/{1.73_m2} >=60 [facility] Glucose [Mass/Vol] 212 mg/dL 74-106 [facility] Magnesium [Mass/Vol] 2.1 mg/dL 1.8-2.4 [facility] Potassium [Moles/Vol] 4.5 mmol/L 3.5-5.1 [facility] Sodium [Moles/Vol] 142 mmol/L 136-145 [facility] Urate [Mass/Vol] 4.3 mg/dL 3.5-7.2 [facility] Urea nitrogen [Mass/Vol] 30.0 mg/dL 7.0-18.0 [facility] Urea nitrogen/Creatinine [Mass ratio] 17.0 mg/mg [facility] Laboratory - Urinalysison Protein (U) [Mass/Vol] 11.5 mg/dL <=11.9 [facility] Leukocytes [#/volume] correc soraya for nucleated erythrocytes in Blood by Automated counon 06-24-2023 WBC corrected for nucl RBC Auto (Bld) [#/Vol] 9.6 10 3/uL 4.0-11.0 [facility] MCH Auto (RBC) [Entitic mass ]on 06-24-2023 MCH (RBC) [Entitic mass] 28.5 pg 25.9-34.0 [facility] MCHC Auto (RBC) [Mass/Vol]on 06-24-2023 MCHC (RBC) [Mass/Vol] 31.4 g/dL 29.9-35.2 [facility] MCV Auto (RBC) [Entitic vol] on 06-24-2023 MCV (RBC) [Entitic vol] 90.8 fL 80.0-94.0 [facility] No Panel Informationon 06-23 25-Hydroxy Vitamin D Total 42.5 ng/mL [facility] Comment on above: <20 ng/mL Vit D defi cient20-<30 ng/mL Vit D fmsydxydqtid02-540 ng/mL Vit D sufficient>100 ng/mL Potential Toxicity Parathyroid Hormone (Intact) 48 pg/mL 15-65 [facility] Comment on above: Performed at: [address] [id number] Director: Kwaku Park PhD, Phone: [phone] Phosphorus Level 3.6 mg/dL 2.6-4.7 [facility] Urine Random Creatinine 60.60 mg/dL 20.00-300. 00 [facility] Platelet mean volume Auto (B ld) [Entitic vol]on 06-24-2023 Platelet mean volume (Bld) [Entitic vol] 10.2 fL 9.5-13.5 [facility] Platelets Auto (Bld) [#/Vol] on 06-24-2023 Platelets (Bld) [#/Vol] 178 10 3/uL 150-450 [facility] RBC Auto (Bld) [#/Vol]on RBC (Bld) [#/Vol] 5.09 10 6/uL 4.70-6.10 [facility] Serum or plasma anion gap de terminationon 06-24-2023 Anion gap [Moles/Vol] 15.1 mmol/L [facility] Urine protein/creatinine rat ioon 06-24-2023 Protein/Creatinine (U) [Ratio] 0.19 [facility] HbA1c HPLC (Bld) [Mass fract ion]on 06-18-2023 HbA1c (Bld) [Mass fraction] 6.1 % [facility] No Panel Informationon 06-[address] [facility] Cholesterol in LDL Calc [Mas s/Vol]on 06-13-2023 Cholesterol in LDL [Mass/Vol] 29.0 mg/dL [facility] Comment on above: <100 mg/dl [id number] 0-129 mg/dl NEAR OR ABOVE [id number] mg/dl BORDERLINE [id number] mg/dl HIGH>190 mg/dl VERY HIGH Cholesterol in VLDL Calc [Ma ss/Vol]on 06-13-2023 Cholesterol in VLDL [Mass/Vol] 24.8 mg/dL [facility] Laboratory - Chemistry and C hemistry - challengeon 06-13-2023 Cholesterol [Mass/Vol] 87 mg/dL <=200 [facility] Cholesterol in HDL [Mass/Vol] 34 mg/dL 40-60 [facility] Comment on above: > or =60 mg/dl - LOW CARDIOVASCULAR RISK<40 mg/dl - HIGH CARDIOVASCULAR RISK Triglyceride [Mass/Vol] 124 mg/dL <=150 [facility] Serum or plasma total choles terol/high density lipoprotein (HDL) cholesterol mass yulia 06-13-2023 Cholesterol.total/Chol esterol in HDL [Mass ratio] 2.6 {ratio} [facility] Comment on above: 3.3 - 4.4 LOW RISK4. 4 - 7.1 AVERAGE RISK7.1 - 11.0 MODERATE RISK>11.0 HIGH RISK A1C HEMOGLOBINon 03-12-2023 HbA1c (Bld) [Mass fraction] 7.1 % [employer] Other Glucose - FINGER STICKon Glucose [Mass/Vol] 151 mg/dL [employer] Other HbA1c (Bld) [Mass fraction]o n 03-12-2023 A1C HEMOGLOBIN [facility] Other CT CHEST WO CONon 08-09-2022 CT [...] HAZEL SCHILLING Date: 2022-08-09 14:00 Normal [facility] A1C HEMOGLOBINon 06-26-2022 HbA1c (Bld) [Mass fraction] 7.4 % [employer] Other Glucose - FINGER STICKon Glucose [Mass/Vol] 267 mg/dL [employer] Other HbA1c (Bld) [Mass fraction]o n 06-26-2022 A1C HEMOGLOBIN [facility] [employer] Other PTH INTACTon 06-26-2022 PTH, Intact 37 pg/mL Normal 15-65 [facility] Comment on above: Performed By: #### C MP, CMADM #### [facility] [address] [place] [address] Dr. Mirza Sadler FERRITINon 06-25-2022 Ferritin [Mass/Vol] 269.0 ng/mL Normal 26.0-388.0 [facility] Comment on above: Performed By: #### B AUDIO VISUAL AIDS DIRECTOR #### [facility] [address] [place] [address] Dr. Mirza Sadler HEMOGRAM AND PLATELon 2022 Hematocrit (Bld) [Volume fraction] 44.7 % Normal 42.0-54.0 [facility] Comment on above: Performed By: #### P T, PTT #### [facility] [address] [place] [address] Dr. Mirza Sadler Hemoglobin (Bld) [Mass/Vol] 15.1 g/dL Normal 14.0-18.0 [facility] Comment on above: Performed By: #### P T, PTT #### [facility] [address] [place] [address] Dr. Mirza Sadler MCH (RBC) [Entitic mass] 30.0 pg Normal 25.9-34.0 [facility] Comment on above: Performed By: #### P T, PTT #### [facility] [address] [place] [address] Dr. Mirza Sadler MCHC (RBC) [Mass/Vol] 33.8 g/dL Normal 29.9-35.2 [facility] Comment on above: Performed By: #### P T, PTT #### [facility] [address] [place] [address] Dr. Mirza Sadler MCV (RBC) [Entitic vol] 88.9 fL Normal 80.0-94.0 [facility] Comment on above: Performed By: #### P T, PTT #### [facility] [address] [place] [address] Dr. Mirza Sadler PLT 199 103/ul Normal 150-450 [facility] Comment on above: Performed By: #### P T, PTT #### [facility] [address] [place] [address] Dr. Mirza Sadler RBC 5.03 106/ul Normal 4.70-6.10 [facility] Comment on above: Performed By: #### P T, PTT #### [facility] [address] [place] [address] Dr. Mirza Sadler WBC 8.7 103/ul Normal 4.0-11.0 [facility] Comment on above: Performed By: #### P T, PTT #### [facility] [address] [place] [address] Dr. Mirza Sadler IRON AND TIBCon 06-25-2022 % SATURATION 28.6 % Normal [facility] Comment on above: Performed By: #### B AUDIO VISUAL AIDS DIRECTOR #### [facility] [address] [place] [address] Dr. Mirza Sadler Iron [Mass/Vol] 82.0 ug/dL Normal 65.0-175.0 [facility] Comment on above: Performed By: #### B AUDIO VISUAL AIDS DIRECTOR #### [facility] [address] [place] [address] Dr. Mirza Sadler TIBC DIRECT 287.0 ug/dL Normal 250.0-450. 0 [facility] Comment on above: Performed By: #### B AUDIO VISUAL AIDS DIRECTOR #### [facility] [address] [place] [address] Dr. Mirza Sadler MAGNESIUMon 06-25-2022 Magnesium [Mass/Vol] 2.0 mg/dL Normal 1.8-2.4 [facility] Comment on above: Performed By: #### B AUDIO VISUAL AIDS DIRECTOR #### [facility] [address] [place] [address] Dr. Mirza Sadler RENAL FUNCTION PANELon 06-25 Albumin [Mass/Vol] 4.2 g/dL Normal 3.4-5.0 [facility] Comment on above: Performed By: #### B AUDIO VISUAL AIDS DIRECTOR #### [facility] [address] [place] [address] Dr. Mirza Sadler Calcium [Mass/Vol] 9.3 mg/dL Normal 8.5-10.1 [facility] Comment on above: Performed By: #### B AUDIO VISUAL AIDS DIRECTOR #### [facility] [address] [place] [address] Dr. Mirza Sadler Chloride [Moles/Vol] 108 mmol/L Critically high 98-107 [facility] Comment on above: Performed By: #### B AUDIO VISUAL AIDS DIRECTOR #### [facility] [address] [place] [address] Dr. Mirza Sadler CO2 [Moles/Vol] 29.5 mmol/L Normal 21.0-32.0 [facility] Comment on above: Performed By: #### B AUDIO VISUAL AIDS DIRECTOR #### [facility] [address] [place] [address] Dr. Mirza Sadler Creatinine [Mass/Vol] 1.87 mg/dL Critically high 0.70-1.30 [facility] Comment on above: Performed By: #### B AUDIO VISUAL AIDS DIRECTOR #### [facility] [address] [place] [address] Dr. Mirza Sadler EGFR-AF BAHAMIAN 43 mL/min/1.73m2 Critically low >=60 [facility] Comment on above: Performed By: #### B AUDIO VISUAL AIDS DIRECTOR #### [facility] [address] [place] [address] Dr. Mirza Sadler EGFR-NON AF BAHAMIAN 36 mL/min/1.73m2 Critically low >=60 [facility] Comment on above: Performed By: #### B AUDIO VISUAL AIDS DIRECTOR #### [facility] [address] [place], [place] [id number] Dr. Mirza Sadler Glucose [Mass/Vol] 181 mg/dL Critically high 74-106 [facility] Comment on above: Performed By: #### B AUDIO VISUAL AIDS DIRECTOR #### [facility] [address] [place] [address] Dr. Mirza Sadler Phosphate [Mass/Vol] 4.8 mg/dL Critically high 2.6-4.7 [facility] Comment on above: Performed By: #### B AUDIO VISUAL AIDS DIRECTOR #### [facility] [address] [place] [address] Dr. Mirza Sadler Potassium [Moles/Vol] 4.8 mmol/L Normal 3.5-5.1 [facility] Comment on above: Performed By: #### B AUDIO VISUAL AIDS DIRECTOR #### [facility] [address] [place] [address] Dr. Mirza Sadler Sodium [Moles/Vol] 146 mmol/L Critically high 136-145 [facility] Comment on above: Performed By: #### B AUDIO VISUAL AIDS DIRECTOR #### [facility] [address] [place] [address] Dr. Mirza Sadler Urea nitrogen [Mass/Vol] 40.0 mg/dL Critically high 7.0-18.0 [facility] Comment on above: Performed By: #### B AUDIO VISUAL AIDS DIRECTOR #### [facility] [address] [place] [address] Dr. Mirza Sadler UA RANDOM W/MICROSCOPICon BACTERIA NONE SEEN Normal NONE SEEN [facility] Comment on above: Performed By: #### H STROPN #### [facility] [address] [place] [address] Dr. Mirza Sadler Bilirubin Ql (U) Negative Normal NEGATIVE [facility] Comment on above: Performed By: #### H STROPN #### [facility] [address] [place] [address] Dr. Mirza Sadler CAST NONE SEEN Normal NONE SEEN [facility] Comment on above: Performed By: #### H STROPN #### [facility] [address] [place] [address] Dr. Mirza Sadler Clarity (U) CLEAR Normal CLEAR [facility] Comment on above: Performed By: #### H STROPN #### [facility] [address] [address] [address] Mirza Sadler Color (U) LT. YELLOW Normal YELLOW [facility] Comment on above: Performed By: #### H STROPN #### [facility] [address] [address] [address] Mirza Sadler Crystals LM Nom (Urine sed) NONE SEEN Normal NONE SEEN [facility] Comment on above: Performed By: #### H STROPN #### [facility] [address] [address] [address] Mirza Sadler Epithelial cells LM Ql (Urine sed) FEW Abnormal NONE SEEN /RARE [facility] Comment on above: Performed By: #### H STROPN #### [facility] [address] [place] [address] Dr. Mirza Sadler Glucose Ql (U) 500 mg/dl Abnormal NEGATIVE [facility] Comment on above: Performed By: #### H STROPN #### [facility] [address] [place] [address] Dr. Mirza Sadler Hemoglobin Ql (U) Negative Normal NEGATIVE [facility] Comment on above: Performed By: #### H STROPN #### [facility] [address] [address] [address] Mirza Sadler Ketones Ql (U) Negative Normal NEGATIVE [facility] Comment on above: Performed By: #### H STROPN #### [facility] [address] [place] [address] Dr. Mirza Sadler LEUKOCYTES Negative Normal NEGATIVE [facility] Comment on above: Performed By: #### H STROPN #### [facility] [address] [address] [address] Mirza Sadler MUCOUS NONE SEEN Normal NONE SEEN [facility] Comment on above: Performed By: #### H STROPN #### [facility] Laboratory [address] [address] [address] Mirza Sadler Nitrite Ql (U) Negative Normal NEGATIVE [facility] Comment on above: Performed By: #### H STROPN #### [facility] [address] [place] [address] Dr. Mirza Sadler pH (U) 5.5 [pH] Normal 5-9 [facility] Comment on above: Performed By: #### H STROPN #### [facility] [address] [place] [address] Dr. Mirza Sadler RBC 0-2 Normal 0-2 [facility] Comment on above: Performed By: #### H STROPN #### [facility] [address] [place] [address] Dr. Mirza Sadler SPEC GRAVITY 1.015 Normal 1.005-<=1. 025 [facility] Comment on above: Performed By: #### H STROPN #### [facility] [address] [place] [address] Dr. Mirza Sadler UA PROTEIN Negative Normal NEGATIVE/ TRACE [facility] Comment on above: Performed By: #### H STROPN #### [facility] [address] [place] [address] Dr. Mirza Sadler Urobilinogen Qn (U) 0.2 {Luisito'U}/dL Normal 0.2 - 1. 0 [facility] Comment on above: Performed By: #### H STROPN #### [facility] [address] [place] [address] Dr. Mirza Sadler WBC NONE SEEN Normal NONE SEEN [facility] Comment on above: Performed By: #### H STROPN #### [facility] [address] [place] [address] Dr. Mirza Sadler URIC ACID SERUMon 06-25-2022 Urate [Mass/Vol] 6.1 mg/dL Normal 3.5-7.2 [facility] Comment on above: Performed By: #### B AUDIO VISUAL AIDS DIRECTOR #### [facility] [address] [place] [address] Dr. Mirza Sadler URINE T PROTEIN CREAT RATIOo n 06-25-2022 Protein (U) [Mass/Vol] 9.7 mg/dL Normal <=12.0 [facility] Comment on above: Performed By: #### C MP, DOMDM #### [facility] [address] [place] [address] Dr. Mirza Sadler UR PROT CREAT RAT 0.14 Normal [facility] Comment on above: Performed By: #### C TANIA, DOMDM #### [facility] [address] [address] [address] Mirza Sadler URINE CREAT 71.45 mg/dL Normal 20.00-300. 00 [facility] Comment on above: Performed By: #### C DOM MARINDM #### [facility] [address] [place] [address] Dr. Mirza Sadler VITAMIN D 25 OHon 06-25-2022 VIT D 25-OH 44.7 ng/mL Normal [facility] Comment on above: Performed By: #### E RUR #### [facility] [address] [place] [address] Dr. Mirza Sadler VIT D RANGES SEE BELOW Normal [facility] Comment on above: Result Comment: <20 ng/mL Vit D deficient 20 - <30 ng/mL Vit D insufficient 30 - 100 ng/mL Vit D sufficient >100 ng/mL Potential Toxicity Performed By: #### E RUR #### [facility] [address] [place] [address] Dr. Mirza Sadler LIPID PROFILEon 06-18-2022 CHOL-HDL RATIO NORM SEE BELOW Normal [facility] Comment on above: Result Comment: 3.3 - 4.4 LOW RISK 4.4 - 7.1 AVERAGE RISK 7.1 - 11.0 MODERATE RISK >11.0 HIGH RISK Performed By: #### H STROPN #### [facility] [address] [place] [address] Dr. Mirza Sadler Cholesterol [Mass/Vol] 136 mg/dL Normal <=200 [facility] Comment on above: Performed By: #### H STROPN #### [facility] [address] [place] [address] Dr. Mirza Sadler Cholesterol in HDL [Mass/Vol] 38 mg/dL Critically low 40-60 [facility] Comment on above: Performed By: #### H STROPN #### [facility] [address] [place] [address] Dr. Mirza Sadler Cholesterol in LDL [Mass/Vol] 69.6 mg/dL Normal [facility] Comment on above: Performed By: #### H STROPN #### [facility] [address] [address] [address] Mirza Sadler Cholesterol.total/Chol esterol in HDL [Mass ratio] 3.6 {ratio} Normal [facility] Comment on above: Performed By: #### H STROPN #### [facility] [address] [address] [address] Mirza Sadler HDL NORMAL > or = 60 mg/dl - LO W CARDIOVASCULAR RISK <40 mg/dl - HIGH CARDIOVASCULAR RISK Normal [facility] Comment on above: Performed By: #### H STROPN #### [facility] [address] [place] [address] Dr. Mirza Sadler LDL CALC NORMAL SEE BELOW Normal [facility] Comment on above: Result Comment: <100 mg/dl OPTIMAL 100 - 129 mg/dl NEAR OR ABOVE OPTIMAL 130 - 159 mg/dl BORDERLINE HIGH 160 - 189 mg/dl HIGH >190 mg/dl VERY HIGH Performed By: #### H STROPN #### [facility] [address] [address] [address] Mirza Sadler Triglyceride [Mass/Vol] 142 mg/dL Normal <=150 [facility] Comment on above: Performed By: #### H STROPN #### [facility] [address] [place] [address] Dr. Mirza Sadler VLDL CALC 28.4 mg/dL Normal [facility] Comment on above: Performed By: #### H STROPN #### [facility] [address] [place] [address] CHEST WO CONon [...] HIGINIO FLANAGAN Date: 2022-06-05 16:58 Normal [facility] CT CHEST WO [employer] Other PROF CHEM 8 (BAS METB)on Anion gap [Moles/Vol] 10.2 mmol/L Normal [facility] Comment on above: Performed By: #### B AUDIO VISUAL AIDS DIRECTOR #### [facility] [address] [place] [address] Dr. Mirza Sadler Calcium [Mass/Vol] 8.9 mg/dL Normal 8.5-10.1 [facility] Comment on above: Performed By: #### B AUDIO VISUAL AIDS DIRECTOR #### [facility] [address] [address] [address] Mirza Sadler Chloride [Moles/Vol] 101 mmol/L Normal 98-107 [facility] Comment on above: Performed By: #### B AUDIO VISUAL AIDS DIRECTOR #### [facility] [address] [address] [address] Mirza Sadler CO2 [Moles/Vol] 31.2 mmol/L Normal 21.0-32.0 [facility] Comment on above: Performed By: #### B AUDIO VISUAL AIDS DIRECTOR #### [facility] [address] [address] [address] Mirza Sadler Creatinine [Mass/Vol] 1.91 mg/dL Critically high 0.70-1.30 [facility] Comment on above: Performed By: #### B AUDIO VISUAL AIDS DIRECTOR #### [facility] [address] [place] [address] Dr. Mirza Sadler EGFR-AF BAHAMIAN 42 mL/min/1.73m2 Critically low >=60 [facility] Comment on above: Performed By: #### B AUDIO VISUAL AIDS DIRECTOR #### [facility] [address] [address] [address] Mirza Sadler EGFR-NON AF BAHAMIAN 35 mL/min/1.73m2 Critically low >=60 [facility] Comment on above: Performed By: #### B AUDIO VISUAL AIDS DIRECTOR #### [facility] [address] [place] [address] Dr. Mirza Sadler Glucose [Mass/Vol] 242 mg/dL Critically high 74-106 T [facility] Comment on above: Performed By: #### B AUDIO VISUAL AIDS DIRECTOR #### [facility] [address] [place] [address] Dr. Mirza Sadler Potassium [Moles/Vol] 4.4 mmol/L Normal 3.5-5.1 [facility] Comment on above: Performed By: #### B AUDIO VISUAL AIDS DIRECTOR #### [facility] [address] [place] [address] Dr. Mirza Sadler Sodium [Moles/Vol] 138 mmol/L Normal 136-145 [facility] Comment on above: Performed By: #### B AUDIO VISUAL AIDS DIRECTOR #### [facility] [address] [address] [address] Mirza Sadler Urea nitrogen [Mass/Vol] 33.0 mg/dL Critically high 7.0-18.0 [facility] Comment on above: Performed By: #### B AUDIO VISUAL AIDS DIRECTOR #### [facility] [address] [place] [address] Dr. Mirza Sadler Urea nitrogen/Creatinine [Mass ratio] 17.3 mg/mg Normal [facility] Comment on above: Performed By: #### B AUDIO VISUAL AIDS DIRECTOR #### [facility] [address] [place] [address] Dr. Mirza Sadler PROF CHEM 8 (BAS METB)on Anion gap [Moles/Vol] 10.7 mmol/L Normal [facility] Comment on above: Performed By: #### P T, PTT #### [facility] [address] [address] [address] Mirza Sadler Calcium [Mass/Vol] 8.9 mg/dL Normal 8.5-10.1 [facility] Comment on above: Performed By: #### P T, PTT #### [facility] [address] [address] [address] Mirza Sadler Chloride [Moles/Vol] 104 mmol/L Normal 98-107 [facility] Comment on above: Performed By: #### P T, PTT #### [facility] [address] [place] [address] Dr. Mirza Sadler CO2 [Moles/Vol] 29.4 mmol/L Normal 21.0-32.0 [facility] Comment on above: Performed By: #### P T, PTT #### [facility] [address] [place] [address] Dr. Mirza Sadler Creatinine [Mass/Vol] 1.75 mg/dL Critically high 0.70-1.30 [facility] Comment on above: Performed By: #### P T, PTT #### [facility] [address] [place] [address] Dr. Mirza Sadler EGFR-AF BAHAMIAN 47 mL/min/1.73m2 Critically low >=60 [facility] Comment on above: Performed By: #### P T, PTT #### [facility] [address] [place] [address] Dr. Mirza Sadler EGFR-NON AF BAHAMIAN 39 mL/min/1.73m2 Critically low >=60 [facility] Comment on above: Performed By: #### P T, PTT #### [facility] [address] [place] [address] Dr. Mirza Sadler Glucose [Mass/Vol] 191 mg/dL Critically high 74-106 [facility] Comment on above: Performed By: #### P T, PTT #### [facility] [address] [place] [address] Dr. Mirza Sadler Potassium [Moles/Vol] 4.1 mmol/L Normal 3.5-5.1 [facility] Comment on above: Performed By: #### P T, PTT #### [facility] [address] [address] [address] Mirza Sadler Sodium [Moles/Vol] 140 mmol/L Normal 136-145 [facility] Comment on above: Performed By: #### P T, PTT #### [facility] [address] [address] [address] Mirza Sadler Urea nitrogen [Mass/Vol] 31.0 mg/dL Critically high 7.0-18.0 [facility] Comment on above: Performed By: #### P T, PTT #### [facility] [address] [address] [address] Mirza Sadler Urea nitrogen/Creatinine [Mass ratio] 17.7 mg/mg Normal [facility] Comment on above: Performed By: #### P T, PTT #### [facility] [address] [address] [address] Mirza Sadler XR CHEST 2 Von [...] by: HIGINIO FLANAGAN Date: 2022-03-22 16:12 Normal [facility] A1C HEMOGLOBINon 03-20-2022 HbA1c (Bld) [Mass fraction] 6.7 % [employer] Other Glucose - FINGER STICKon Glucose [Mass/Vol] 193 mg/dL [employer] Other HbA1c (Bld) [Mass fraction]o n 03-20-2022 A1C HEMOGLOBIN [facility] [employer] Other BNPon 03-13-2022 Natriuretic peptide B (Bld) [Mass/Vol] 4825.0 pg/mL Critically high <=900.0 [facility] Comment on above: Performed By: #### E RUR #### [facility] [address] [place] [address] Dr. Mirza Sadler CBC AUTO DIFFon 03-13-2022 BASO # 0.0 103/ul Normal 0.0-0.1 [facility] Comment on above: Performed By: #### E RUR #### [facility] [address] [place] [address] Dr. Mirza Sadler Basophils/100 WBC (Bld) 0.6 % Normal 0.2-2.0 [facility] Comment on above: Performed By: #### E RUR #### [facility] [address] [place] [address] Dr. Mirza Sadler EO # 0.1 103/ul Normal 0.0-0.7 [facility] Comment on above: Performed By: #### E RUR #### [facility] [address] [place] [address] Dr. Mirza Sadler Eosinophils/100 WBC (Bld) 1.8 % Normal 0.9-7.0 [facility] Comment on above: Performed By: #### E RUR #### [facility] [address] [place] [address] Dr. Mirza Sadler Erythrocyte distribution width (RBC) [Ratio] 14.4 % Normal 11.0-15.0 [facility] Comment on above: Performed By: #### E RUR #### [facility] [address] [place] [address] Dr. Mirza Sadler Hematocrit (Bld) [Volume fraction] 36.1 % Critically low 42.0-54.0 [facility] Comment on above: Performed By: #### E RUR #### [facility] [address] [address] [address] Mirza Sadler Hemoglobin (Bld) [Mass/Vol] 11.9 g/dL Critically low 14.0-18.0 [facility] Comment on above: Performed By: #### E RUR #### [facility] [address] [place] [address] Dr. Mirza Sadler IG # 0.02 10e3/ul Normal 0.00-0.03 [facility] Comment on above: Performed By: #### E RUR #### [facility] [address] [place] [address] Dr. Mirza Sadler IG % 0.3 % Normal 0.0-0.5 [facility] Comment on above: Performed By: #### E RUR #### [facility] [address] [place] [address] Dr. Mirza Sadler LYMPH # 1.5 103/ul Normal 1.2-3.8 [facility] Comment on above: Performed By: #### E RUR #### [facility] [address] [place] [address] Dr. Mirza Sadler Lymphocytes/100 WBC (Bld) 22.6 % Normal 20.5-60.0 [facility] Comment on above: Performed By: #### E RUR #### [facility] [address] [place] [address] Dr. Mirza Sadler MANUAL DIFF REQ NO Normal [facility] Comment on above: Performed By: #### E RUR #### [facility] [address] [place] [address] Dr. Mirza Sadler MCH (RBC) [Entitic mass] 29.0 pg Normal 25.9-34.0 [facility] Comment on above: Performed By: #### E RUR #### [facility] [address] [place] [address] Dr. Mirza Sadler MCHC (RBC) [Mass/Vol] 33.0 g/dL Normal 29.9-35.2 [facility] Comment on above: Performed By: #### E RUR #### [facility] [address] [address] [address] Mirza Sadler MCV (RBC) [Entitic vol] 88.0 fL Normal 80.0-94.0 [facility] Comment on above: Performed By: #### E RUR #### [facility] [address] [place] [address] Dr. Mirza Sadler MONO # 0.7 103/ul Normal 0.3-0.8 [facility] Comment on above: Performed By: #### E RUR #### [facility] [address] [place] [address] Dr. Mirza Sadler Monocytes/100 WBC (Bld) 10.2 % Normal 1.7-12.0 [facility] Comment on above: Performed By: #### E RUR #### [facility] [address] [place] [address] Dr. Mirza Sadler NEUT # 4.3 103/ul Normal 1.4-6.5 [facility] Comment on above: Performed By: #### E RUR #### [facility] [address] [place] [address] Dr. Mirza Sadler Neutrophils/100 WBC (Bld) 64.5 % Normal 43.0-75.0 [facility] Comment on above: Performed By: #### E RUR #### [facility] [address] [place] [address] Dr. Mirza Sadler Platelet mean volume (Bld) [Entitic vol] 9.7 fL Normal 9.5-13.5 [facility] Comment on above: Performed By: #### E RUR #### [facility] [address] [place] [address] Dr. Mirza Sadler PLT 149 103/ul Critically low 150-450 [facility] Comment on above: Performed By: #### E RUR #### [facility] [address] [place] [address] Dr. Mirza Sadler RBC 4.10 106/ul Critically low 4.70-6.10 [facility] Comment on above: Performed By: #### E RUR #### [facility] [address] [place], [place] [id number] Dr. Mirza Sadler WBC 6.6 103/ul Normal 4.0-11.0 [facility] Comment on above: Performed By: #### E RUR #### [facility] [address] [place] [address] Dr. Mirza Sadler PROF CHEM 8 (BAS METB)on Anion gap [Moles/Vol] 14.6 mmol/L Normal [facility] Comment on above: Performed By: #### E RUR #### [facility] [address] [place] [address] Dr. Mirza Sadler Calcium [Mass/Vol] 8.5 mg/dL Normal 8.5-10.1 [facility] Comment on above: Performed By: #### E RUR #### [facility] [address] [place] [address] Dr. Mirza Sadler Chloride [Moles/Vol] 104 mmol/L Normal 98-107 [facility] Comment on above: Performed By: #### E RUR #### [facility] [address] [place] [address] Dr. Mirza Sadler CO2 [Moles/Vol] 22.7 mmol/L Normal 21.0-32.0 [facility] Comment on above: Performed By: #### E RUR #### [facility] [address] [place] [address] Dr. Mirza Sadler Creatinine [Mass/Vol] 1.78 mg/dL Critically high 0.70-1.30 [facility] Comment on above: Performed By: #### E RUR #### [facility] [address] [place] [address] Dr. Mirza Sadler EGFR-AF BAHAMIAN 46 mL/min/1.73m2 Critically low >=60 [facility] Comment on above: Performed By: #### E RUR #### [facility] [address] [place] [address] Dr. Mirza Sadler EGFR-NON AF BAHAMIAN 38 mL/min/1.73m2 Critically low >=60 [facility] Comment on above: Performed By: #### E RUR #### [facility] [address] [address] [address] Mirza Sadler Glucose [Mass/Vol] 121 mg/dL Critically high 74-106 T [facility] Comment on above: Performed By: #### E RUR #### [facility] [address] [address] [address] Mirza Sadler Potassium [Moles/Vol] 3.3 mmol/L Critically low 3.5-5.1 [facility] Comment on above: Performed By: #### E RUR #### [facility] [address] [address] [address] Mirza Sadler Sodium [Moles/Vol] 138 mmol/L Normal 136-145 [facility] Comment on above: Performed By: #### E RUR #### [facility] [address] [place] [address] Dr. Mirza Sadler Urea nitrogen [Mass/Vol] 30.0 mg/dL Critically high 7.0-18.0 [facility] Comment on above: Performed By: #### E RUR #### [facility] [address] [place] [address] Dr. Mirza Sadler Urea nitrogen/Creatinine [Mass ratio] 16.9 mg/mg Normal [facility] Comment on above: Performed By: #### E RUR #### [facility] [address] [place] [address] Dr. Mirza Sadler BNPon 03-12-2022 Natriuretic peptide B (Bld) [Mass/Vol] 7452.0 pg/mL Critically high <=900.0 [facility] Comment on above: Performed By: #### C MP, CMADM #### [facility] [address] [place] [address] Dr. Mirza Sadler CBC AUTO DIFFon 03-12-2022 BASO # 0.0 103/ul Normal 0.0-0.1 [facility] Comment on above: Performed By: #### P T, PTT #### [facility] [address] [place] [address] Dr. Mirza Sadler Basophils/100 WBC (Bld) 0.4 % Normal 0.2-2.0 [facility] Comment on above: Performed By: #### P T, PTT #### [facility] [address] [place] [address] Dr. Mirza Sadler EO # 0.0 103/ul Normal 0.0-0.7 [facility] Comment on above: Performed By: #### P T, PTT #### [facility] [address] [place] [address] Dr. Mirza Sadler Eosinophils/100 WBC (Bld) 0.2 % Critically low 0.9-7.0 [facility] Comment on above: Performed By: #### P T, PTT #### [facility] [address] [place] [address] Dr. Mirza Sadler Erythrocyte distribution width (RBC) [Ratio] 14.6 % Normal 11.0-15.0 [facility] Comment on above: Performed By: #### P T, PTT #### [facility] [address] [place] [address] Dr. Mirza Sadler Hematocrit (Bld) [Volume fraction] 37.8 % Critically low 42.0-54.0 [facility] Comment on above: Performed By: #### P T, PTT #### [facility] [address] [place] [address] Dr. Mirza Sadler Hemoglobin (Bld) [Mass/Vol] 12.2 g/dL Critically low 14.0-18.0 [facility] Comment on above: Performed By: #### P T, PTT #### [facility] [address] [place] [address] Dr. Mirza Sadler IG # 0.03 10e3/ul Normal 0.00-0.03 [facility] Comment on above: Performed By: #### P T, PTT #### [facility] [address] [place] [address] Dr. Mirza Sadler IG % 0.3 % Normal 0.0-0.5 [facility] Comment on above: Performed By: #### P T, PTT #### [facility] [address] [place] [address] Dr. Mirza Sadler LYMPH # 1.2 103/ul Normal 1.2-3.8 [facility] Comment on above: Performed By: #### P T, PTT #### [facility] [address] [place] [address] Dr. Mirza Sadler Lymphocytes/100 WBC (Bld) 11.5 % Critically low 20.5-60.0 [facility] Comment on above: Performed By: #### P T, PTT #### [facility] [address] [place] [address] Dr. Mirza Sadler MANUAL DIFF REQ NO Normal [facility] Comment on above: Performed By: #### P T, PTT #### [facility] [address] [place] [address] Dr. Mirza Sadler MCH (RBC) [Entitic mass] 29.0 pg Normal 25.9-34.0 [facility] Comment on above: Performed By: #### P T, PTT #### [facility] [address] [place] [address] Dr. Mirza Sadler MCHC (RBC) [Mass/Vol] 32.3 g/dL Normal 29.9-35.2 [facility] Comment on above: Performed By: #### P T, PTT #### [facility] [address] [place] [address] Dr. Mirza Sadler MCV (RBC) [Entitic vol] 89.8 fL Normal 80.0-94.0 [facility] Comment on above: Performed By: #### P T, PTT #### [facility] [address] [place] [address] Dr. Mirza Sadler MONO # 0.7 103/ul Normal 0.3-0.8 [facility] Comment on above: Performed By: #### P T, PTT #### [facility] [address] [place] [address] Dr. Mirza Sadler Monocytes/100 WBC (Bld) 6.8 % Normal 1.7-12.0 [facility] Comment on above: Performed By: #### P T, PTT #### [facility] [address] [place] [address] Dr. Mirza Sadler NEUT # 8.5 103/ul Critically high 1.4-6.5 [facility] Comment on above: Performed By: #### P T, PTT #### [facility] [address] [address] [address] Mirza Sadler Neutrophils/100 WBC (Bld) 80.8 % Critically high 43.0-75.0 [facility] Comment on above: Performed By: #### P T, PTT #### [facility] [address] [place] [address] Dr. Mirza Sadler Platelet mean volume (Bld) [Entitic vol] 9.8 fL Normal 9.5-13.5 [facility] Comment on above: Performed By: #### P T, PTT #### [facility] [address] [place] [address] Dr. Mirza Sadler PLT 165 103/ul Normal 150-450 [facility] Comment on above: Performed By: #### P T, PTT #### [facility] [address] [place] [address] Dr. Mirza Sadler RBC 4.21 106/ul Critically low 4.70-6.10 [facility] Comment on above: Performed By: #### P T, PTT #### [facility] [address] [place] [address] Dr. Mirza Sadler WBC 10.5 103/ul Normal 4.0-11.0 [facility] Comment on above: Performed By: #### P T, PTT #### [facility] [address] [place] [address] Dr. Mirza Sadler ECHOCARDIO M/2D COMPLETEon 1 05-13-2021 ECHOCARDIO M/2D COMPLETE Patient: LANI LIZAMA Exam Date: 03/12/2022 : 1950 Gender:M Ordering : DR OBDULIO ALVA . Admission #: [id number] Family : DR HARLEY CRESPO D.O. Order #: [id number] CLICK HERE TO VIEW EXAM ECHOCARDIOGRAM REPORT PROCEDURE: CARDIO PULMONARY ECHOCARDIO M/2D COMP INDICATIONS: Elevated TROP and BNPChest pain, recent HI, CHF, CBAG x 5, PTCA x 7 [...] Foreman M.D. on 03/13/2022 at 17:42 Normal [facility] PROF CHEM 8 (BAS METB)on Anion gap [Moles/Vol] 17.8 mmol/L Normal [facility] Comment on above: Performed By: #### C TEGAN MARIN #### [facility] [address] [place] [address] Dr. Mirza Sadler Calcium [Mass/Vol] 8.6 mg/dL Normal 8.5-10.1 [facility] Comment on above: Performed By: #### C TEGAN MARIN #### [facility] [address] [place] [address] Dr. Mirza Sadler Chloride [Moles/Vol] 103 mmol/L Normal 98-107 [facility] Comment on above: Performed By: #### C TEGAN MARIN #### [facility] [address] [place] [address] Dr. Mirza Sadler CO2 [Moles/Vol] 22.3 mmol/L Normal 21.0-32.0 [facility] Comment on above: Performed By: #### C TEGAN MARIN #### [facility] [address] [place] [address] Dr. Mirza Sadler Creatinine [Mass/Vol] 1.81 mg/dL Critically high 0.70-1.30 [facility] Comment on above: Performed By: #### C TEGAN MARIN #### [facility] [address] [place] [address] Dr. Mirza Sadler EGFR-AF BAHAMIAN 45 mL/min/1.73m2 Critically low >=60 [facility] Comment on above: Performed By: #### C MP, CMADM #### [facility] [address] [address] [address] Mirza Sadler EGFR-NON AF BAHAMIAN 37 mL/min/1.73m2 Critically low >=60 [facility] Comment on above: Performed By: #### C MP, CMADM #### [facility] [address] [address] [address] Mirza Sadler Glucose [Mass/Vol] 161 mg/dL Critically high 74-106 T [facility] Comment on above: Performed By: #### C MP, CMADM #### [facility] [address] [address] [address] Mirza Sadler Potassium [Moles/Vol] 4.1 mmol/L Normal 3.5-5.1 [facility] Comment on above: Performed By: #### C MP, CMADM #### [facility] [address] [address] [address] Mirza Sadler Sodium [Moles/Vol] 139 mmol/L Normal 136-145 [facility] Comment on above: Performed By: #### C MP, CMADM #### [facility] [address] [address] [address] Mirza Sadler Urea nitrogen [Mass/Vol] 28.0 mg/dL Critically high 7.0-18.0 [facility] Comment on above: Performed By: #### C MP, CMADM #### [facility] [address] [address] [address] Mirza Sadler Urea nitrogen/Creatinine [Mass ratio] 15.5 mg/mg Normal [facility] Comment on above: Performed By: #### C MP, CMADM #### [facility] [address] [address] [address] Mirza Sadler TROPONIN, HIGH SENSITIVITYon 03-12-2022 HSTROP 31258.5 pg/mL Critically high 4.0-76.1 [facility] Comment on above: Result Comment: CUT- OFF POINTS HAVE BEEN ESTABLISHED BASED ON THE FOURTH UNIVERSAL DEFINITIONS OF MYOCARDIAL INFARCTION. THE UPPER REFERENCE LIMIT (URL) OF TROPONIN, DEFINED THE 99TH PERCENTILE OF cTnI DISTRIBUTION IN A REFERENCE POPULATION, HAS BEEN CONFIRMED THE DECISION THRESHOLD FOR HI DIAGNOSIS. Performed By: #### C MP, CMADM #### [facility] [address] [place] [address] Dr. Mirza Sadler BNPon 03-11-2022 Natriuretic peptide B (Bld) [Mass/Vol] 1378.0 pg/mL Critically high <=900.0 [facility] Comment on above: Performed By: #### P T, PTT #### [facility] [address] [place] [address] Dr. Mirza Sadler CARDIAC PARUL 3-6on 2 CK [Catalytic activity/Vol] 139 U/L Normal 39-308 [facility] Comment on above: Performed By: #### E RUR #### [facility] [address] [place] [address] Dr. Mirza Sadler CK.MB [Mass/Vol] 7.50 ng/mL Critically high <=3.60 [facility] Comment on above: Performed By: #### E RUR #### [facility] [address] [place] [address] Dr. Mirza Sadler HSTROP 1419.3 pg/mL Critically high 4.0-76.1 [facility] Comment on above: Result Comment: CUT- OFF POINTS HAVE BEEN ESTABLISHED BASED ON THE FOURTH UNIVERSAL DEFINITIONS OF MYOCARDIAL INFARCTION. THE UPPER REFERENCE LIMIT (URL) OF TROPONIN, DEFINED THE 99TH PERCENTILE OF cTnI DISTRIBUTION IN A REFERENCE POPULATION, HAS BEEN CONFIRMED THE DECISION THRESHOLD FOR HI DIAGNOSIS. Performed By: #### E RUR #### [facility] [address] [place] [address] Dr. Mirza Sadler CBC AUTO DIFFon 03-11-2022 BASO # 0.1 103/ul Normal 0.0-0.1 [facility] Comment on above: Performed By: #### E RUR #### [facility] [address] [place] [address] Dr. Mirza Sadler Basophils/100 WBC (Bld) 0.5 % Normal 0.2-2.0 [facility] Comment on above: Performed By: #### E RUR #### [facility] [address] [place] [address] Dr. Mirza Sadler EO # 0.2 103/ul Normal 0.0-0.7 [facility] Comment on above: Performed By: #### E RUR #### [facility] [address] [place] [address] Dr. Mirza Sadler Eosinophils/100 WBC (Bld) 1.3 % Normal 0.9-7.0 [facility] Comment on above: Performed By: #### E RUR #### [facility] [address] [place] [address] Dr. Mirza Sadler Erythrocyte distribution width (RBC) [Ratio] 14.6 % Normal 11.0-15.0 [facility] Comment on above: Performed By: #### E RUR #### [facility] [address] [place] [address] Dr. Mirza Sadler Hematocrit (Bld) [Volume fraction] 43.1 % Normal 42.0-54.0 [facility] Comment on above: Performed By: #### E RUR #### [facility] [address] [place] [address] Dr. Mirza Sadler Hemoglobin (Bld) [Mass/Vol] 14.2 g/dL Normal 14.0-18.0 [facility] Comment on above: Performed By: #### E RUR #### [facility] [address] [place] [address] Dr. Mirza Sadler IG # 0.07 10e3/ul Critically high 0.00-0.03 [facility] Comment on above: Performed By: #### E RUR #### [facility] [address] [place] [address] Dr. Mirza Sadler IG % 0.5 % Normal 0.0-0.5 [facility] Comment on above: Performed By: #### E RUR #### [facility] [address] [place] [address] Dr. Mirza Sadler LYMPH # 1.3 103/ul Normal 1.2-3.8 [facility] Comment on above: Performed By: #### E RUR #### [facility] [address] [place], [place] [id number] Dr. Mirza Sadler Lymphocytes/100 WBC (Bld) 8.6 % Critically low 20.5-60.0 [facility] Comment on above: Performed By: #### E RUR #### [facility] [address] [place] [address] Dr. Mirza Sdaler MANUAL DIFF REQ NO Normal [facility] Comment on above: Performed By: #### E RUR #### [facility] [address] [place] [address] Dr. Mirza Sadler MCH (RBC) [Entitic mass] 29.3 pg Normal 25.9-34.0 [facility] Comment on above: Performed By: #### E RUR #### [facility] [address] [place] [address] Dr. Mirza Sadler MCHC (RBC) [Mass/Vol] 32.9 g/dL Normal 29.9-35.2 [facility] Comment on above: Performed By: #### E RUR #### [facility] [address] [place] [address] Dr. Mirza Sadler MCV (RBC) [Entitic vol] 88.9 fL Normal 80.0-94.0 [facility] Comment on above: Performed By: #### E RUR #### [facility] [address] [place] [address] Dr. Mirza Sadler MONO # 0.7 103/ul Normal 0.3-0.8 [facility] Comment on above: Performed By: #### E RUR #### [facility] [address] [place] [address] Dr. Mirza Sadler Monocytes/100 WBC (Bld) 4.3 % Normal 1.7-12.0 [facility] Comment on above: Performed By: #### E RUR #### [facility] [address] [place] [address] Dr. Mirza Sadler NEUT # 12.8 103/ul Critically high 1.4-6.[address] [facility] Comment on above: Performed By: #### E RUR #### [facility] [address] [place] [address] Dr. Mirza Sadler Neutrophils/100 WBC (Bld) 84.8 % Critically high 43.0-75.0 [facility] Comment on above: Performed By: #### E RUR #### [facility] [address] [place] [address] Dr. Mirza Sadler Platelet mean volume (Bld) [Entitic vol] 9.9 fL Normal 9.5-13.5 [facility] Comment on above: Performed By: #### E RUR #### [facility] [address] [place] [address] Dr. Mirza Sadler PLT 201 103/ul Normal 150-450 [facility] Comment on above: Performed By: #### E RUR #### [facility] [address] [place] [address] Dr. Mirza Sadler RBC 4.85 106/ul Normal 4.70-6.10 [facility] Comment on above: Performed By: #### E RUR #### [facility] [address] [place] [address] Dr. Mirza Sadler WBC 15.0 103/ul Critically high 4.0-11.[address] [facility] Comment on above: Performed By: #### E RUR #### [facility] [address] [place] [address] Dr. Mirza Sadler CULTURE BLOODon 03-11-2022 Microscopic examination of blood, culture Culture Observations: NO GROWTH AT 5 DAYS. Normal [facility] Comment on above: Performed By: #### H STROPN #### [facility] [address] [place] [address] Dr. Mirza Sadler Microscopic examination of blood, culture Culture Observations: NO GROWTH AT 5 DAYS. Normal [facility] Comment on above: Performed By: #### H STROPN #### [facility] [address] [place] [address] Dr. Mirza Sadler [facility] SARS-CoV-2 (COVID-19) RNA RAMO+probe Ql (Unsp spec) Not detected Normal NOT DETECTED [facility] Comment on above: Result Comment: When [...] for this test is supported by the War of Health and Human Service's declaration that [...] used). Performed By: #### H STROPN #### [facility] [address] [place] [address] Dr. Mirza Sadler ER URINE PROFILEon 2 Bilirubin Ql (U) Negative Normal NEGATIVE [facility] Comment on above: Performed By: #### E RUR #### [facility] [address] [place] [address] Dr. Mirza Sadler Clarity (U) CLEAR Normal CLEAR [facility] Comment on above: Performed By: #### E RUR #### [facility] [address] [place] [address] Dr. Mirza Sadler Color (U) LT. YELLOW Normal YELLOW [facility] Comment on above: Performed By: #### E RUR #### [facility] [address] [place] [address] Dr. Mirza Sadler ERUAHD A micrscopic examina tion will be performed if indicated. Normal [facility] Comment on above: Performed By: #### E RUR #### [facility] [address] [place] [address] Dr. Mirza Sadler Glucose Ql (U) >1000 Abnormal NEGATIVE [facility] Comment on above: Performed By: #### E RUR #### [facility] [address] [place] [address] Dr. Mirza Sadler Hemoglobin Ql (U) Negative Normal NEGATIVE [facility] Comment on above: Performed By: #### E RUR #### [facility] [address] [place] [address] Dr. Mirza Sadler Ketones Ql (U) 15 mg/dl Abnormal NEGATIVE [facility] Comment on above: Performed By: #### E RUR #### [facility] [address] [place] [address] Dr. Mirza Sadler LEUKOCYTES Negative Normal NEGATIVE [facility] Comment on above: Performed By: #### E RUR #### [facility] [address] [place] [address] Dr. Mirza Sadler Nitrite Ql (U) Negative Normal NEGATIVE [facility] Comment on above: Performed By: #### E RUR #### [facility] [address] [place] [address] Dr. Mirza Sadler pH (U) 5.0 [pH] Normal 5-9 [facility] Comment on above: Performed By: #### E RUR #### [facility] [address] [place] [address] Dr. Mirza Sadler SPEC GRAVITY 1.020 Normal 1.005-<=1. 025 [facility] Comment on above: Performed By: #### E RUR #### [facility] [address] [place] [address] Dr. Mirza Sadler UA PROTEIN TRACE Normal NEGATIVE/ TRACE [facility] Comment on above: Performed By: #### E RUR #### [facility] [address] [place] [address] Dr. Mirza Sadler UR MICRO IND NOT INDICATED Normal [facility] Comment on above: Performed By: #### E RUR #### [facility] [address] [place] [address] Dr. Mirza Sadler Urobilinogen Qn (U) 0.2 {Luisito'U}/dL Normal 0.2 - 1. 0 [facility] Comment on above: Performed By: #### E RUR #### [facility] [address] [place] [address] Dr. Mirza Sadler POINT OF CARE GLUCOSEon 03-01 Glucose [Mass/Vol] 161 mg/dL Critically high 74-106 [facility] Comment on above: Performed By: #### P T, PTT #### [facility] [address] [address] [address] Mirza Sadler PROF 14(COMP METB)on 022 Albumin [Mass/Vol] 4.3 g/dL Normal 3.4-5.0 [facility] Comment on above: Performed By: #### P T, PTT #### [facility] [address] [address] [address] Mirza Sadler Albumin/Globulin [Mass ratio] 1.1 {ratio} Normal [facility] Comment on above: Performed By: #### P T, PTT #### [facility] [address] [place] [address] Dr. Mirza Sadler ALP [Catalytic activity/Vol] 156 U/L Critically high 46-116 [facility] Comment on above: Performed By: #### P T, PTT #### [facility] [address] [place] [address] Dr. Mirza Sadler ALT [Catalytic activity/Vol] 24 U/L Normal 16-63 [facility] Comment on above: Performed By: #### P T, PTT #### [facility] [address] [place] [address] Dr. Mirza Sadler Anion gap [Moles/Vol] 16.7 mmol/L Normal [facility] Comment on above: Performed By: #### P T, PTT #### [facility] [address] [address] [address] Mirza Sadler AST [Catalytic activity/Vol] 21 U/L Normal 15-37 [facility] Comment on above: Performed By: #### P T, PTT #### [facility] [address] [place] [address] Dr. Mirza Sadler Bilirubin [Mass/Vol] 1.1 mg/dL Critically high 0.2-1.0 [facility] Comment on above: Performed By: #### P T, PTT #### [facility] [address] [address] [address] Mirza Sadler Calcium [Mass/Vol] 8.8 mg/dL Normal 8.5-10.1 [facility] Comment on above: Performed By: #### P T, PTT #### [facility] [address] [address] [address] Mirza Sadler Chloride [Moles/Vol] 105 mmol/L Normal 98-107 [facility] Comment on above: Performed By: #### P T, PTT #### [facility] [address] [address] [address] Mirza Sadler CO2 [Moles/Vol] 25.0 mmol/L Normal 21.0-32.0 [facility] Comment on above: Performed By: #### P T, PTT #### [facility] [address] [place] [address] Dr. Mirza Sadler Creatinine [Mass/Vol] 1.57 mg/dL Critically high 0.70-1.30 [facility] Comment on above: Performed By: #### P T, PTT #### [facility] [address] [address] [address] Mirza Sadler EGFR-AF BAHAMIAN 53 mL/min/1.73m2 Critically low >=60 [facility] Comment on above: Performed By: #### P T, PTT #### [facility] [address] [place] [address] Dr. Mirza Sadler EGFR-NON AF BAHAMIAN 44 mL/min/1.73m2 Critically low >=60 [facility] Comment on above: Performed By: #### P T, PTT #### [facility] [address] [address] [address] Mirza Sadler Globulin (S) [Mass/Vol] 3.9 g/dL Normal [facility] Comment on above: Performed By: #### P T, PTT #### [facility] [address] [address] [address] Mirza Sadler Glucose [Mass/Vol] 188 mg/dL Critically high 74-106 [facility] Comment on above: Performed By: #### P T, PTT #### [facility] [address] [place] [address] Dr. Mirza Sadler Potassium [Moles/Vol] 3.7 mmol/L Normal 3.5-5.1 [facility] Comment on above: Performed By: #### P T, PTT #### [facility] [address] [place] [address] Dr. Mirza Sadler Protein [Mass/Vol] 8.2 g/dL Normal 6.4-8.2 [facility] Comment on above: Performed By: #### P T, PTT #### [facility] [address] [place] [address] Dr. Mirza Sadler Sodium [Moles/Vol] 143 mmol/L Normal 136-145 [facility] Comment on above: Performed By: #### P T, PTT #### [facility] [address] [place] [address] Dr. Mirza Sadler Urea nitrogen [Mass/Vol] 20.0 mg/dL Critically high 7.0-18.0 [facility] Comment on above: Performed By: #### P T, PTT #### [facility] [address] [place] [address] Dr. Mirza Sadler Urea nitrogen/Creatinine [Mass ratio] 12.7 mg/mg Normal [facility] Comment on above: Performed By: #### P T, PTT #### [facility] [address] [place] [address] Dr. Mirza Sadler RESPIRATORY PANEL PLUSon Adenovirus Not detected Normal NOT DETECTED [facility] Comment on above: Performed By: #### P T, PTT #### [facility] [address] [place] [address] Dr. Mirza Hernandez. Parapertusis Not detected Normal NOT DETECTED [facility] Comment on above: Performed By: #### P T, PTT #### [facility] [address] [place] [address] Dr. Mirza Hernandez. Pertussis Not detected Normal NOT DETECTED [facility] Comment on above: Performed By: #### P T, PTT #### [facility] [address] [place] [address] Dr. Mirza Sadler Chlamydia Pneumoniae Not detected Normal NOT DETECTED [facility] Comment on above: Performed By: #### P T, PTT #### [facility] [address] [place] [address] Dr. Mirza Sadler Coronavirus 229E Not detected Normal NOT DETECTED [facility] Comment on above: Performed By: #### P T, PTT #### [facility] [address] [place] [address] Dr. Mirza Sadler Coronavirus HKU1 Not detected Normal NOT DETECTED [facility] Comment on above: Performed By: #### P T, PTT #### [facility] [address] [place] [address] Dr. Mirza Sadler Coronavirus NL63 Not detected Normal NOT DETECTED [facility] Comment on above: Performed By: #### P T, PTT #### [facility] [address] [place] [address] Dr. Mirza Sadler Coronavirus OC43 Not detected Normal NOT DETECTED [facility] Comment on above: Performed By: #### P T, PTT #### [facility] [address] [place] [address] Dr. Mirza Sadler Influenza A H1 2009 Not detected Normal NOT DETECTED [facility] Comment on above: Performed By: #### P T, PTT #### [facility] [address] [place] [address] Dr. Mirza Sadler Influenza A H3 Not detected Normal NOT DETECTED [facility] Comment on above: Performed By: #### P T, PTT #### [facility] [address] [place] [address] Dr. Mirza Sadler Influenza B Not detected Normal NOT DETECTED [facility] Comment on above: Performed By: #### P T, PTT #### [facility] [address] [place] [address] Dr. Mirza Sadler Metapneumovirus Not detected Normal NOT DETECTED [facility] Comment on above: Performed By: #### P T, PTT #### [facility] [address] [place] [address] Dr. Mirza Sadler Mycoplas. Pneumoniae Not detected Normal NOT DETECTED [facility] Comment on above: Performed By: #### P T, PTT #### [facility] [address] [place] [address] Dr. Mirza Sadler Parainfluenza 1 Not detected Normal NOT DETECTED [facility] Comment on above: Performed By: #### P T, PTT #### [facility] [address] [place] [address] Dr. Mirza Sadler Parainfluenza 2 Not detected Normal NOT DETECTED [facility] Comment on above: Performed By: #### P T, PTT #### [facility] [address] [place], [place] [address] Dr. Mirza Sadler Parainfluenza 3 Not detected Normal NOT DETECTED [facility] Comment on above: Performed By: #### P T, PTT #### [facility] [address] [place] [address] Dr. Mirza Sadler Parainfluenza 4 Not detected Normal NOT DETECTED [facility] Comment on above: Performed By: #### P T, PTT #### [facility] [address] [place] [address] Dr. Mirza Sadler Rhino/Enterovirus Not detected Normal NOT DETECTED [facility] Comment on above: Performed By: #### P T, PTT #### [facility] [address] [place] [address] Dr. Mirza Sadler RP2 Header 1 RESPIRATORY PANEL: VIRUSES Normal [facility] Comment on above: Performed By: #### P T, PTT #### [facility] [address] [place] [address] Dr. Mirza Sadler RP2 Header 2 RESPIRATORY PANEL: BACTERIA Normal [facility] Comment on above: Performed By: #### P T, PTT #### [facility] [address] [place] [address] Dr. Mirza Sadler RSV Not detected Normal NOT DETECTED [facility] Comment on above: Performed By: #### P T, PTT #### [facility] [address] [place] [address] Dr. Mirza Sadler SARS-CoV-2 (COVID-19) RNA RAMO+probe Ql (Unsp spec) Not detected Normal NOT DETECTED [facility] Comment on above: Performed By: #### P T, PTT #### [facility] [address] [address] [address] Mirza Sadler TROPONIN, HIGH SENSITIVITYon 03-11-2022 HSTROP 39169.8 pg/mL Critically high 4.0-76.1 [facility] Comment on above: Result Comment: CUT- OFF POINTS HAVE BEEN ESTABLISHED BASED ON THE FOURTH UNIVERSAL DEFINITIONS OF MYOCARDIAL INFARCTION. THE UPPER REFERENCE LIMIT (URL) OF TROPONIN, DEFINED THE 99TH PERCENTILE OF cTnI DISTRIBUTION IN A REFERENCE POPULATION, HAS BEEN CONFIRMED THE DECISION THRESHOLD FOR HI DIAGNOSIS. Performed By: #### C MP, CMADM #### [facility] [address] [address] [address] Mirza Sadler HSTROP 41.0 pg/mL Normal 4.0-76.1 [facility] Comment on above: Result Comment: CUT- OFF POINTS HAVE BEEN ESTABLISHED BASED ON THE FOURTH UNIVERSAL DEFINITIONS OF MYOCARDIAL INFARCTION. THE UPPER REFERENCE LIMIT (URL) OF TROPONIN, DEFINED THE 99TH PERCENTILE OF cTnI DISTRIBUTION IN A REFERENCE POPULATION, HAS BEEN CONFIRMED THE DECISION THRESHOLD FOR HI DIAGNOSIS. Performed By: #### P T, PTT #### [facility] [address] [address] [address] Mirza Sadler XR CHEST 1 Von [...] by: Kayden ACEVES Date: 2022-03-11 05:42 Normal [facility] NM MUGAon 03-09-2022 NM MUGA EXAMINATION: [...] by: SHANNON LANDIS Date: 2022-03-09 12:26 Normal [facility] CT CHEST WO CONon 03-02-2022 CT [...] HIGINIO FLANAGAN Date: 2022-03-02 08:52 Normal [facility] Creatinine and Glomerular fi ltration rate.predicted panel (S/P/Bld)Ordered By: Gagan Shahid on 01-17-2022 Creatinine [Mass/Vol] 1.53 mg/dL 0.64-1.27 [facility] Estimated glomerular filtrat ion rate (GFR) non- AmericanOrdered By: Gagan Shahid on 01-17-2022 GFR/1.73 sq M.predicted among non-blacks MDRD (S/P/Bld) [Vol rate/Area] 45 mL/Min [facility] Glucose Glucometer (BldC) [M ass/Vol]Ordered By: [...] on 01-17-2022 Estimated GFR () 55 mL/Min [facility] Comment on above: GFR estimated refere nce range: According to KDOQI guidelines, <60 ml/min/1.73m2 is sufficient to diagnose a patient with chronic kidney disease. Pharmacy Creatinine Clearance (Chem 42.00 [facility] Serum or plasma anion gap de terminationOrdered By: Gagan Shahid on 01-17-2022 Anion gap [Moles/Vol] 12.0 mmol/L 6.0-15.0 [facility] Serum or plasma calcium radha urement (mass/volume)Ordered By: Gagan Shahid on 01-17-2022 Calcium [Mass/Vol] 9.0 mg/dL 8.2-10.2 [facility] Serum or plasma chloride shanae surement (moles/volume)Ordered By: Gagan Shahid on 01-17-2022 Chloride [Moles/Vol] 107 mmol/L 95-114 [facility] Serum or plasma glucose radha [...] on 01-17-2022 Potassium [Moles/Vol] 3.5 mmol/L 3.5-5.1 [facility] Serum or plasma sodium measu rement (moles/volume)Ordered By: Gagan Shahid on 01-17-2022 Sodium [Moles/Vol] 137 mmol/L 136-146 [facility] Serum or plasma total carbon dioxide measurement (moles/volume)Ordered By: Gagan Shahid on 01-17-2022 CO2 [Moles/Vol] 21.5 mmol/L 22.0-30.0 [facility] Serum or plasma urea nitroge n measurement (mass/volume)Ordered By: Gagan Shahid on 01-17-2022 Urea nitrogen [Mass/Vol] 24 mg/dL 9- [facility] Activated partial thrombopla stin time (aPTT) in platelet poor plasma by coagulation aOrdered By: Gagan Shahid on 01-16-2022 aPTT Coag (PPP) [Time] 42.1 s 25.1-36.5 [facility] Basophils Auto (Bld) [#/Vol] Ordered By: Gagan Shahid on 01-16-2022 Basophils (Bld) [#/Vol] 0.0 10*3/uL 0.0-0.2 [facility] Basophils/100 WBC Auto (Bld) Ordered By: Gagan Shahid on 01-16-2022 Basophils/100 WBC (Bld) 0.5 % . [facility] Creatine kinase [Enzymatic a ctivity/volume] in Serum or PlasmaOrdered By: Gagan Shahid on 01-16-2022 CK [Catalytic activity/Vol] 92 U/L 22-269 [facility] Eosinophils Auto (Bld) [#/Vo l]Ordered By: Gagan Shahid on 01-16-2022 Eosinophils (Bld) [#/Vol] 0.2 10*3/uL 0.0-0.45 [facility] Eosinophils/100 WBC Auto (Bl d)Ordered By: Gagan Shahid on 01-16-2022 Eosinophils/100 WBC (Bld) 2.4 % . [facility] Erythrocyte distribution wid th Auto (RBC) [Ratio]Ordered By: Gagan Shahid on 01-16-2022 Erythrocyte distribution width (RBC) [Ratio] 14.6 % 12.0-14.8 [facility] Hematocrit Auto (Bld) [Volum e fraction]Ordered By: Gagan Shahid on 01-16-2022 Hematocrit (Bld) [Volume fraction] 43.4 % 38.8-50.0 [facility] Hemoglobin [Mass/volume] in BloodOrdered By: Gagan Shahid on 01-16-2022 Hemoglobin (Bld) [Mass/Vol] 14.4 g/dL 13.0-17.0 [facility] - Chemistry and C hemistry - challengeOrdered By: Gagan Shahid on 01-16-2022 Magnesium [Mass/Vol] 1.9 mg/dL 1.6-2.6 [facility] - CoagulationOrde red By: Gagan Shahid on 01-16-2022 PT Coag (PPP) [Time] 15.7 s 9.0-12.9 [facility] - Hematology and Cell countsOrdered By: Gagan Shahid on 01-16-2022 Nucleated RBC/100 WBC (Bld) [Ratio] 0.1 % 0-0.5 [facility] Leukocytes [#/volume] in Blo od by Automated countOrdered By: Gagan Shahid on 01-16-2022 WBC (Bld) [#/Vol] 8.2 10*3/uL 4.5-11.0 [facility] Lymphocytes Auto (Bld) [#/Vo l]Ordered By: Gagan Shahid on 01-16-2022 Lymphocytes (Bld) [#/Vol] 1.6 10*3/uL 1.00-4.8 [facility] Lymphocytes/100 WBC Auto (Bl d)Ordered By: Gagan Shahid on 01-16-2022 Lymphocytes/100 WBC (Bld) 19.5 % . [facility] MCH Auto (RBC) [Entitic mass ]Ordered By: Gagan Shahid on 01-16-2022 MCH (RBC) [Entitic mass] 29.4 pg 27.5-35.2 [facility] MCHC Auto (RBC) [Mass/Vol]Or dered By: Gagan Shahid on 01-16-2022 MCHC (RBC) [Mass/Vol] 33.2 g/dL 32.5-35.6 [facility] MCV Auto (RBC) [Entitic vol] Ordered By: Gagan Shahid on 01-16-2022 MCV (RBC) [Entitic vol] 88.5 fL 83.5-101 [facility] Monocytes Auto (Bld) [#/Vol] Ordered By: Gagan Shahid on 01-16-2022 Monocytes (Bld) [#/Vol] 0.8 10*3/uL 0.0-0.8 [facility] Monocytes/100 WBC Auto (Bld) Ordered By: Gagan Shahid on 01-16-2022 Monocytes/100 WBC (Bld) 9.1 % . [facility] Neutrophils Auto (Bld) [#/Vo l]Ordered By: Gagan Shahid on 01-16-2022 Neutrophils (Bld) [#/Vol] 5.6 10*3/uL 1.8-7.7 [facility] Neutrophils/100 WBC Auto (Bl d)Ordered By: Gagan Shahid on 01-16-2022 Neutrophils/100 WBC (Bld) 68.5 % . [facility] No Panel InformationOrdered By: Gagan Shahid on 01-16-2022 Bedside Glucose Comment Glu2: cleaned meter [facility] Platelet mean volume Auto (B ld) [Entitic vol]Ordered By: Gagan Shahid on 01-16-2022 Platelet mean volume (Bld) [Entitic vol] 8.4 fL 6.6-10.1 [facility] Platelet poor plasma interna tional normalized ratio (INR) by coagulation assay (relatOrdered By: Gagan Shahid on 01-16-2022 INR Coag (PPP) [Relative time] 1.4 {INR} [facility] Comment on above: INR Therapeutic Rang [...] 01-16-2022 Platelets (Bld) [#/Vol] 178 10*3/uL 150-450 [facility] RBC Auto (Bld) [#/Vol]Ordere d By: Gagan Shahid on 01-16-2022 RBC (Bld) [#/Vol] 4.90 10*6/uL 3.90-5.60 [facility] Serum or plasma creatine kin ase MB (CKMB)/total creatine kinase (CK) ratio by calculaOrdered By: Gagan Shahid on 01-16-2022 CK.MB Calc [Catalytic fraction] 3.2 % 0.00-2.50 [facility] Serum or plasma creatine kin ase MB measurement (mass/volume)Ordered By: Gagan Shahid on 01-16-2022 CK.MB [Mass/Vol] 3.0 ng/mL 0.6-6.3 [facility] Troponin I.cardiac [Mass/vol ume] in Serum or Plasma by High sensitivity methodOrdered By: Gagan Shahid on 01-16-2022 Troponin I.cardiac High sensitivity method [Mass/Vol] 525 pg/mL 0-20 [facility] Comment on above: Critical valueresult calledat 1844 on 01/16/22 BNPon 01-15-2022 Natriuretic peptide B (Bld) [Mass/Vol] 1012.0 pg/mL Critically high <=900.0 [facility] Comment on above: Performed By: #### B AUDIO VISUAL AIDS DIRECTOR #### [facility] [address] [address] [address] Mirza Sadler CARDIAC PARUL ADMITon 022 CK [Catalytic activity/Vol] 93 U/L Normal 39-308 [facility] Comment on above: Performed By: #### C TANIA, CMADM #### [facility] [address] [place] [address] Dr. Mirza Sadler CK.MB [Mass/Vol] 1.67 ng/mL Normal <=3.60 [facility] Comment on above: Performed By: #### C TANIA, CMADM #### [facility] [address] [place] [address] Dr. Mirza Sadler HSTROP 17.1 pg/mL Normal 4.0-76.1 [facility] Comment on above: Result Comment: CUT- OFF POINTS HAVE BEEN ESTABLISHED BASED ON THE FOURTH UNIVERSAL DEFINITIONS OF MYOCARDIAL INFARCTION. THE UPPER REFERENCE LIMIT (URL) OF TROPONIN, DEFINED THE 99TH PERCENTILE OF cTnI DISTRIBUTION IN A REFERENCE POPULATION, HAS BEEN CONFIRMED THE DECISION THRESHOLD FOR HI DIAGNOSIS. Performed By: #### C TANIA, CMADM #### [facility] [address] [place] [address] Dr. Mirza Sadler RACHEL 63 ng/mL Normal 16-96 [facility] Comment on above: Performed By: #### C TANIA, CMADM #### [facility] [address] [place] [address] Dr. Mirza Sadler CBC AUTO DIFFon 01-15-2022 BASO # 0.1 103/ul Normal 0.0-0.1 [facility] Comment on above: Performed By: #### E RUR #### [facility] [address] [place] [address] Dr. Mirza Sadler Basophils/100 WBC (Bld) 0.9 % Normal 0.2-2.0 [facility] Comment on above: Performed By: #### E RUR #### [facility] [address] [place] [address] Dr. Mirza Sadler EO # 0.3 103/ul Normal 0.0-0.7 [facility] Comment on above: Performed By: #### E RUR #### [facility] [address] [place] [address] Dr. Mirza Sadler Eosinophils/100 WBC (Bld) 3.1 % Normal 0.9-7.0 [facility] Comment on above: Performed By: #### E RUR #### [facility] [address] [place] [address] Dr. Mirza Sadler Erythrocyte distribution width (RBC) [Ratio] 14.2 % Normal 11.0-15.0 [facility] Comment on above: Performed By: #### E RUR #### [facility] [address] [place] [address] Dr. Mirza Sadler Hematocrit (Bld) [Volume fraction] 44.4 % Normal 42.0-54.0 [facility] Comment on above: Performed By: #### E RUR #### [facility] [address] [place] [address] Dr. Mirza Sadler Hemoglobin (Bld) [Mass/Vol] 14.4 g/dL Normal 14.0-18.0 [facility] Comment on above: Performed By: #### E RUR #### [facility] [address] [place] [address] Dr. Mirza Sadler IG # 0.03 10e3/ul Normal 0.00-0.03 [facility] Comment on above: Performed By: #### E RUR #### [facility] [address] [place] [address] Dr. Mirza Sadler IG % 0.3 % Normal 0.0-0.5 [facility] Comment on above: Performed By: #### E RUR #### [facility] [address] [place] [address] Dr. Mirza Sadler LYMPH # 1.6 103/ul Normal 1.2-3.8 [facility] Comment on above: Performed By: #### E RUR #### [facility] [address] [place] [address] Dr. Mirza Sadler Lymphocytes/100 WBC (Bld) 16.8 % Critically low 20.5-60.0 [facility] Comment on above: Performed By: #### E RUR #### [facility] [address] [place] [address] Dr. Mirza Sadler MANUAL DIFF REQ NO Normal [facility] Comment on above: Performed By: #### E RUR #### [facility] [address] [address] [address] Mirza Sadler MCH (RBC) [Entitic mass] 29.4 pg Normal 25.9-34.0 [facility] Comment on above: Performed By: #### E RUR #### [facility] [address] [address] [address] Mirza Sadler MCHC (RBC) [Mass/Vol] 32.4 g/dL Normal 29.9-35.2 [facility] Comment on above: Performed By: #### E RUR #### [facility] [address] [place] [address] Dr. Mirza Sadler MCV (RBC) [Entitic vol] 90.6 fL Normal 80.0-94.0 [facility] Comment on above: Performed By: #### E RUR #### [facility] [address] [place] [address] Dr. Mirza Sadler MONO # 0.5 103/ul Normal 0.3-0.8 [facility] Comment on above: Performed By: #### E RUR #### [facility] [address] [place] [address] Dr. Mirza Sadler Monocytes/100 WBC (Bld) 5.9 % Normal 1.7-12.0 [facility] Comment on above: Performed By: #### E RUR #### [facility] [address] [place] [address] Dr. Mirza Sadler NEUT # 6.7 103/ul Critically high 1.4-6.5 [facility] Comment on above: Performed By: #### E RUR #### [facility] [address] [place] [address] Dr. Mirza Sadler Neutrophils/100 WBC (Bld) 73.0 % Normal 43.0-75.0 [facility] Comment on above: Performed By: #### E RUR #### [facility] [address] [place] [address] Dr. Mirza Sadler Platelet mean volume (Bld) [Entitic vol] 10.0 fL Normal 9.5-13.5 [facility] Comment on above: Performed By: #### E RUR #### [facility] [address] [place], [place] [address] Dr. Mirza Sadler PLT 190 103/ul Normal 150-450 [facility] Comment on above: Performed By: #### E RUR #### [facility] [address] [place], [place] [address] Dr. Mirza Sadler RBC 4.90 106/ul Normal 4.70-6.10 [facility] Comment on above: Performed By: #### E RUR #### [facility] [address] [place], [place] [address] Dr. Mirza Sadler WBC 9.2 103/ul Normal 4.0-11.0 [facility] Comment on above: Performed By: #### E RUR #### [facility] [address] [address] [address] CHEST WO CONon [...] HIGINIO FLANAGAN Date: 2022-01-15 08:19 Normal [facility] CULTURE BLOODon 01-15-2022 Microscopic examination of blood, culture Culture Observations: NO GROWTH AT 5 DAYS. Normal [facility] Comment on above: Performed By: #### H STROPN #### [facility] [address] [address] [address] Mirza Sadler Microscopic examination of blood, culture Culture Observations: NO GROWTH AT 5 DAYS. Normal [facility] Comment on above: Performed By: #### B LDCX1 #### [facility] [address] [address] [address] Mirza Sadler Covid-19 PCR (CVDTB)on 12-30 SARS-CoV-2 (COVID-19) RNA RAMO+probe Ql (Unsp spec) Not detected Normal NOT DETECTED [facility] Comment on above: Result Comment: When [...] for this test is supported by the [employer] and Human Service's declaration that [...] longer be used). Performed By: #### B AUDIO VISUAL AIDS DIRECTOR #### [facility] [address] [address] [address] Mirza Sadler ER URINE PROFILEon 2 Bilirubin Ql (U) Negative Normal NEGATIVE [facility] Comment on above: Performed By: #### C MP, CMADM #### [facility] [address] [address] [address] Mirza Sadler Clarity (U) CLEAR Normal CLEAR [facility] Comment on above: Performed By: #### C MP, CMADM #### [facility] [address] [place] [address] Dr. Mirza Sadler Color (U) LT. YELLOW Normal YELLOW [facility] Comment on above: Performed By: #### C TANIA, CMADM #### [facility] [address] [place] [address] Dr. Mirza BUSTILLO A micrscopic examina tion will be performed if indicated. Normal [facility] Comment on above: Performed By: #### C TANIA, CMADM #### [facility] [address] [place] [address] Dr. Mirza Sadler Glucose Ql (U) >1000 Abnormal NEGATIVE [facility] Comment on above: Performed By: #### C TANIA, CMADM #### [facility] [address] [address] [address] Mirza Sadler Hemoglobin Ql (U) Negative Normal NEGATIVE The [facility] Comment on above: Performed By: #### C TANIA, CMADM #### [facility] [address] [address] [address] Mirza Sadler Ketones Ql (U) TRACE Abnormal NEGATIVE [facility] Comment on above: Performed By: #### C MP, CMADM #### [facility] [address] [address] [address] Mirza Sadler LEUKOCYTES Negative Normal NEGATIVE [facility] Comment on above: Performed By: #### C MP, CMADM #### [facility] [address] [place] [address] Dr. Mirza Sadler Nitrite Ql (U) Negative Normal NEGATIVE [facility] Comment on above: Performed By: #### C TANIA, CMADM #### [facility] [address] [place] [address] Dr. Mirza Sadler pH (U) 5.5 [pH] Normal 5-9 [facility] Comment on above: Performed By: #### C MP, CMADM #### [facility] [address] [place] [address] Dr. Mirza Sadler SPEC GRAVITY 1.020 Normal 1.005-<=1. 025 [facility] Comment on above: Performed By: #### C MP, CMADM #### [facility] [address] [place] [address] Dr. Mirza Sadler UA PROTEIN TRACE Normal NEGATIVE/ TRACE [facility] Comment on above: Performed By: #### C MP, CMADM #### [facility] [address] [place] [address] Dr. Mirza Sadler UR MICRO IND NOT INDICATED Normal [facility] Comment on above: Performed By: #### C TANIA, CMADM #### [facility] [address] [place] [address] Dr. Mirza Sadler Urobilinogen Qn (U) 0.2 {Luisito'U}/dL Normal 0.2 - 1. 0 [facility] Comment on above: Performed By: #### C TANIA, CMADM #### [facility] [address] [place] [address] Dr. Mirza Sadler LACTATE/LACTIC ACIDon 2021 Lactate [Moles/Vol] 0.8 mmol/L Normal 0.4-1.9 [facility] Comment on above: Performed By: #### P T, PTT #### [facility] [address] [place] [address] Dr. Mirza Sadler PROF 14(COMP METB)on 022 Albumin [Mass/Vol] 4.4 g/dL Normal 3.4-5.0 [facility] Comment on above: Performed By: #### C TANIA, CMADM #### [facility] [address] [place] [address] Dr. Mirza Sadler Albumin/Globulin [Mass ratio] 1.3 {ratio} Normal [facility] Comment on above: Performed By: #### C MP, CMADM #### [facility] [address] [address] [address] Mirza Sadler ALP [Catalytic activity/Vol] 155 U/L Critically high 46-116 [facility] Comment on above: Performed By: #### C MP, CMADM #### [facility] [address] [address] [address] Mirza Sadler ALT [Catalytic activity/Vol] 27 U/L Normal 16-63 [facility] Comment on above: Performed By: #### C MP, CMADM #### [facility] [address] [place] [address] Dr. Mirza Sadler Anion gap [Moles/Vol] 14.9 mmol/L Normal [facility] Comment on above: Performed By: #### C MP, CMADM #### [facility] [address] [place] [address] Dr. Mirza Sadler AST [Catalytic activity/Vol] 22 U/L Normal 15-37 [facility] Comment on above: Performed By: #### C TANIA, CMADM #### [facility] [address] [place] [address] Dr. Mirza Sadler Bilirubin [Mass/Vol] 0.8 mg/dL Normal 0.2-1.0 [facility] Comment on above: Performed By: #### C MP, CMADM #### [facility] [address] [place] [address] Dr. Mirza Sadler Calcium [Mass/Vol] 8.8 mg/dL Normal 8.5-10.1 [facility] Comment on above: Performed By: #### C MP, CMADM #### [facility] [address] [place] [address] Dr. Mirza Sadler Chloride [Moles/Vol] 106 mmol/L Normal 98-107 [facility] Comment on above: Performed By: #### C MP, CMADM #### [facility] [address] [place] [address] Dr. Mirza Sadler CO2 [Moles/Vol] 23.9 mmol/L Normal 21.0-32.0 [facility] Comment on above: Performed By: #### C TANIA, TEGAN #### [facility] [address] [place] [address] Dr. Mirza Sadler Creatinine [Mass/Vol] 1.51 mg/dL Critically high 0.70-1.30 [facility] Comment on above: Performed By: #### C TANIA, CMADM #### [facility] [address] [place] [address] Dr. Mirza Sadler EGFR-AF BAHAMIAN 56 mL/min/1.73m2 Critically low >=60 [facility] Comment on above: Performed By: #### C TANIA, DOMDM #### [facility] [address] [place] [address] Dr. Mirza Sadler EGFR-NON AF BAHAMIAN 46 mL/min/1.73m2 Critically low >=60 [facility] Comment on above: Performed By: #### C TANIA, CMADM #### [facility] [address] [place] [address] Dr. Mirza Sadler Globulin (S) [Mass/Vol] 3.4 g/dL Normal [facility] Comment on above: Performed By: #### C DOM MARINDM #### [facility] [address] [place] [address] Dr. Mirza Sadler Glucose [Mass/Vol] 189 mg/dL Critically high 74-106 [facility] Comment on above: Performed By: #### C TANIA, DOMDM #### [facility] [address] [place] [address] Dr. Mirza Sadler Potassium [Moles/Vol] 3.8 mmol/L Normal 3.5-5.1 [facility] Comment on above: Performed By: #### C TANIA, DOMDM #### [facility] [address] [place] [address] Dr. Mirza Sadler Protein [Mass/Vol] 7.8 g/dL Normal 6.4-8.2 [facility] Comment on above: Performed By: #### C TANIA, CMADM #### [facility] [address] [place] [address] Dr. Mirza Sadler Sodium [Moles/Vol] 141 mmol/L Normal 136-145 [facility] Comment on above: Performed By: #### C TANIA, TEGAN #### [facility] [address] [place] [address] Dr. Mirza Sadler Urea nitrogen [Mass/Vol] 22.0 mg/dL Critically high 7.0-18.0 [facility] Comment on above: Performed By: #### C TANIA, TEGAN #### [facility] [address] [place] [address] Dr. Mirza Sadler Urea nitrogen/Creatinine [Mass ratio] 14.6 mg/mg Normal [facility] Comment on above: Performed By: #### C TANIA, TEGAN #### [facility] [address] [place] [address] Dr. Mirza Sadler PROTIMEon 01-15-2022 INR Coag (PPP) [Relative time] 1.10 {INR} Normal [facility] Comment on above: Performed By: #### E RUR #### [facility] [address] [place] [address] Dr. Mirza Sadler INR GUIDELINES SEE BELOW Normal [facility] Comment on above: Result Comment: RIVKA RED INR: 2.0 - 3.0 CONDITIONS NOT LISTED BELOW 2.5 - 3.5 FOR PROSTHETIC HEART VALVE REPLACEMENT 2.5 - 3.5 RECURRENT THROMBOSIS Performed By: #### E RUR #### [facility] [address] [place] [address] Dr. Mirza Sadler PT Coag (PPP) [Time] 11.8 s Critically high 9.0-11.6 [facility] Comment on above: Performed By: #### E RUR #### [facility] [address] [place] [address] Dr. Mirza Sadler PTTon 01-15-2022 aPTT Coag (Bld) [Time] 29.0 s Normal 22.3-36.2 Th [facility] Comment on above: Performed By: #### E RUR #### [facility] [address] [place] [address] Dr. Mirza Sadler TROPONIN, HIGH SENSITIVITYon 01-15-2022 HSTROP 1786.2 pg/mL Critically high 4.0-76.1 [facility] Comment on above: Result Comment: CUT- OFF POINTS HAVE BEEN ESTABLISHED BASED ON THE FOURTH UNIVERSAL DEFINITIONS OF MYOCARDIAL INFARCTION. THE UPPER REFERENCE LIMIT (URL) OF TROPONIN, DEFINED THE 99TH PERCENTILE OF cTnI DISTRIBUTION IN A REFERENCE POPULATION, HAS BEEN CONFIRMED THE DECISION THRESHOLD FOR HI DIAGNOSIS. Performed By: #### H STROPN #### [facility] [address] [address] [address] Mirza Sadler HSTROP 669.3 pg/mL Critically high 4.0-76.1 [facility] Comment on above: Result Comment: CUT- OFF POINTS HAVE BEEN ESTABLISHED BASED ON THE FOURTH UNIVERSAL DEFINITIONS OF MYOCARDIAL INFARCTION. THE UPPER REFERENCE LIMIT (URL) OF TROPONIN, DEFINED THE 99TH PERCENTILE OF cTnI DISTRIBUTION IN A REFERENCE POPULATION, HAS BEEN CONFIRMED THE DECISION THRESHOLD FOR HI DIAGNOSIS. Performed By: #### H STROPN #### [facility] [address] [address] [address] Mirza Sadler XR CHEST 1 Von [...] as clinically indicated. Electronically authenticated by: WAYNE SAID Date: 2022-01-15 06:42 Normal [facility] A1C HEMOGLOBINon 12-18-2021 HbA1c (Bld) [Mass fraction] 6.2 % [facility] Other Glucose - FINGER STICKon Glucose [Mass/Vol] 120 mg/dL [employer] Other HbA1c (Bld) [Mass fraction]o n 12-18-2021 A1C HEMOGLOBIN [employer] Other XR CHEST 2 Von 12-08-2021 XR [...] HIGINIO FLANAGAN Date: 2021-12-08 16:07 Normal [facility] PTH INTACTon 12-01-2021 PTH, Intact 15 pg/mL Normal 15-65 [facility] Comment on above: Performed By: #### C MP, CMADM #### [facility] [address] [address] [address] Mirza Sadler VIT D 25-OH [facility]on 2021 Vitamin D, 25-Hydroxy 41.2 ng/mL Normal 30.0-100.0 [facility] Comment on above: Result Comment: Cielo min D deficiency has been defined by the [employer] and an Endocrine Society practice guideline as a level of serum 25-OH vitamin D less than 20 ng/mL (1,2). The Endocrine Society went on to further define vitamin D insufficiency as a level between 21 and 29 ng/mL (2). 1. IOM ([employer] of [employer]). 2010. Dietary reference intakes for calcium and D. [place]: The National Academies Press. 2. Noemy MF, Sonam NC, Jake HERMOSILLO, et al. Evaluation, treatment, and prevention of vitamin D deficiency: an Endocrine Society clinical practice guideline. JCEM. 2010; 96(7):1911-30. Performed By: #### P T, PTT #### [facility] [address] [address] [address] Mirza Sadler HEMOGRAM AND PLATELon 2021 Hematocrit (Bld) [Volume fraction] 39.9 % Critically low 42.0-54.0 [facility] Comment on above: Performed By: #### P T, PTT #### [facility] [address] [place] [address] Dr. Mirza Sadler Hemoglobin (Bld) [Mass/Vol] 13.1 g/dL Critically low 14.0-18.0 [facility] Comment on above: Performed By: #### P T, PTT #### [facility] [address] [place] [address] Dr. Mirza Sadler MCH (RBC) [Entitic mass] 29.5 pg Normal 25.9-34.0 [facility] Comment on above: Performed By: #### P T, PTT #### [facility] [address] [place] [address] Dr. Mirza Sadler MCHC (RBC) [Mass/Vol] 32.8 g/dL Normal 29.9-35.2 [facility] Comment on above: Performed By: #### P T, PTT #### [facility] [address] [place] [address] Dr. Mirza Sadler MCV (RBC) [Entitic vol] 89.9 fL Normal 80.0-94.0 [facility] Comment on above: Performed By: #### P T, PTT #### [facility] [address] [place] [address] Dr. Mirza Sadler PLT 182 103/ul Normal 150-450 [facility] Comment on above: Performed By: #### P T, PTT #### [facility] [address] [place] [address] Dr. Mirza Sadler RBC 4.44 106/ul Critically low 4.70-6.10 [facility] Comment on above: Performed By: #### P T, PTT #### [facility] [address] [place] [address] Dr. Mirza Sadler WBC 6.9 103/ul Normal 4.0-11.0 [facility] Comment on above: Performed By: #### P T, PTT #### [facility] [address] [place] [address] Dr. Mirza Sadler MAGNESIUMon 11-30-2021 Magnesium [Mass/Vol] 1.8 mg/dL Normal 1.8-2.4 [facility] Comment on above: Performed By: #### P T, PTT #### [facility] [address] [place] [address] Dr. Mirza Sadler RENAL FUNCTION PANELon 11-30 Albumin [Mass/Vol] 3.9 g/dL Normal 3.4-5.0 [facility] Comment on above: Performed By: #### P T, PTT #### [facility] [address] [place] [address] Dr. Mirza Sadler Calcium [Mass/Vol] 9.0 mg/dL Normal 8.5-10.1 [facility] Comment on above: Performed By: #### P T, PTT #### [facility] [address] [place] [address] Dr. Mirza Sadler Chloride [Moles/Vol] 107 mmol/L Normal 98-107 [facility] Comment on above: Performed By: #### P T, PTT #### [facility] [address] [place] [address] Dr. Mirza Sadler CO2 [Moles/Vol] 26.2 mmol/L Normal 21.0-32.0 [facility] Comment on above: Performed By: #### P T, PTT #### [facility] [address] [place] [address] Dr. Mirza Sadler Creatinine [Mass/Vol] 1.55 mg/dL Critically high 0.70-1.30 [facility] Comment on above: Performed By: #### P T, PTT #### [facility] [address] [place] [address] Dr. Mirza Sadler EGFR-AF BAHAMIAN 54 mL/min/1.73m2 Critically low >=60 [facility] Comment on above: Performed By: #### P T, PTT #### [facility] [address] [place] [address] Dr. Mirza Sadler EGFR-NON AF BAHAMIAN 45 mL/min/1.73m2 Critically low >=60 [facility] Comment on above: Performed By: #### P T, PTT #### [facility] [address] [place] [address] Dr. Mirza Sadler Glucose [Mass/Vol] 166 mg/dL Critically high 74-106 T [facility] Comment on above: Performed By: #### P T, PTT #### [facility] [address] [place] [address] Dr. Mirza Sadler Phosphate [Mass/Vol] 3.7 mg/dL Normal 2.6-4.7 [facility] Comment on above: Performed By: #### P T, PTT #### [facility] [address] [place] [address] Dr. Mirza Sadler Potassium [Moles/Vol] 4.2 mmol/L Normal 3.5-5.1 [facility] Comment on above: Performed By: #### P T, PTT #### [facility] [address] [place] [address] Dr. Mirza Sadler Sodium [Moles/Vol] 142 mmol/L Normal 136-145 [facility] Comment on above: Performed By: #### P T, PTT #### [facility] [address] [place] [address] Dr. Mirza Sadler Urea nitrogen [Mass/Vol] 16.0 mg/dL Normal 7.0-18.0 [facility] Comment on above: Performed By: #### P T, PTT #### [facility] [address] [place] [address] Dr. Mirza Sadler UA RANDOM W/MICROSCOPICon BACTERIA NONE SEEN Normal NONE SEEN [facility] Comment on above: Performed By: #### B LDCX2 #### [facility] [address] [place] [address] Dr. Mirza Sadler Bilirubin Ql (U) Negative Normal NEGATIVE [facility] Comment on above: Performed By: #### B LDCX2 #### [facility] [address] [place] [address] Dr. Mirza Sadler CAST NONE SEEN Normal NONE SEEN [facility] Comment on above: Performed By: #### B LDCX2 #### [facility] [address] [place] [address] Dr. Mirza Sadler Clarity (U) CLEAR Normal CLEAR [facility] Comment on above: Performed By: #### B LDCX2 #### [facility] [address] [place] [address] Dr. Mirza Sadler Color (U) LT. YELLOW Normal YELLOW [facility] Comment on above: Performed By: #### B LDCX2 #### [facility] [address] [place] [address] Dr. Mirza Sadler Crystals LM Nom (Urine sed) NONE SEEN Normal NONE SEEN [facility] Comment on above: Performed By: #### B LDCX2 #### [facility] [address] [place] [address] Dr. Mirza Sadler Epithelial cells LM Ql (Urine sed) RARE Normal NONE SEEN /RARE [facility] Comment on above: Performed By: #### B LDCX2 #### [facility] [address] [place] [address] Dr. Mirza Sadler Glucose Ql (U) >1000 Abnormal NEGATIVE [facility] Comment on above: Performed By: #### B LDCX2 #### [facility] [address] [place] [address] Dr. Mirza Sadler Hemoglobin Ql (U) Negative Normal NEGATIVE The [facility] Comment on above: Performed By: #### B LDCX2 #### [facility] [address] [place] [address] Dr. Mirza Sadler Ketones Ql (U) Negative Normal NEGATIVE [facility] Comment on above: Performed By: #### B LDCX2 #### [facility] [address] [place] [address] Dr. Mirza Sadler LEUKOCYTES Negative Normal NEGATIVE [facility] Comment on above: Performed By: #### B LDCX2 #### [facility] [address] [place] [address] Dr. Mirza Sadler MUCOUS NONE SEEN Normal NONE SEEN [facility] Comment on above: Performed By: #### B LDCX2 #### [facility] [address] [place] [address] Dr. Mirza Sadler Nitrite Ql (U) Negative Normal NEGATIVE [facility] Comment on above: Performed By: #### B LDCX2 #### [facility] [address] [place] [address] Dr. Mirza Sadler pH (U) 5.5 [pH] Normal 5-9 [facility] Comment on above: Performed By: #### B LDCX2 #### [facility] [address] [place] [address] Dr. Mirza Sadler RBC NONE SEEN Abnormal 0-2 [facility] Comment on above: Performed By: #### B LDCX2 #### [facility] [address] [place] [address] Dr. Mirza Sadler SPEC GRAVITY 1.015 Normal 1.005-<=1. 025 [facility] Comment on above: Performed By: #### B LDCX2 #### [facility] [address] [place] [address] Dr. Mirza Sadler UA PROTEIN Negative Normal NEGATIVE/ TRACE [facility] Comment on above: Performed By: #### B LDCX2 #### [facility] [address] [place] [address] Dr. Mirza Sadler Urobilinogen Qn (U) 0.2 {Luisito'U}/dL Normal 0.2 - 1. 0 [facility] Comment on above: Performed By: #### B LDCX2 #### [facility] [address] [place] [address] Dr. Mirza Sadler WBC NONE SEEN Normal NONE SEEN [facility] Comment on above: Performed By: #### B LDCX2 #### [facility] [address] [place] [address] Dr. Mirza Sadler URINE T PROTEIN CREAT RATIOo n 11-30-2021 Protein (U) [Mass/Vol] 22.4 mg/dL Critically high <=12.0 [facility] Comment on above: Performed By: #### U RTPCR #### [facility] [address] [address] [address] Mirza Sadler UR PROT CREAT RAT 0.31 Normal [facility] Comment on above: Performed By: #### U RTPCR #### [facility] [address] [address] [address] Mirza Sadler URINE CREAT 73.05 mg/dL Normal 20.00-300. 00 [facility] Comment on above: Performed By: #### U RTPCR #### [facility] [address] [address] [address] Mirza Sadler NM HEPATOBILIARY SCAN W [...] HIGINIO FLANAGAN Date: 2021-11-24 11:55 Normal [facility] BNPon 10-27-2021 Natriuretic peptide B (Bld) [Mass/Vol] 574.0 pg/mL Normal <=900.0 [facility] Comment on above: Performed By: #### P T, PTT #### [facility] [address] [place] [address] Dr. Mirza Sadler CARDIAC PARUL ADMITon 022 CK [Catalytic activity/Vol] 70 U/L Normal 39-308 [facility] Comment on above: Performed By: #### P T, PTT #### [facility] [address] [place] [address] Dr. Mirza Sadler CK.MB [Mass/Vol] 1.10 ng/mL Normal <=3.[address] [facility] Comment on above: Performed By: #### P T, PTT #### [facility] [address] [place] [address] Dr. Mirza Sadler HSTROP 22.3 pg/mL Normal 4.0-76.1 [facility] Comment on above: Result Comment: CUT- OFF POINTS HAVE BEEN ESTABLISHED BASED ON THE FOURTH UNIVERSAL DEFINITIONS OF MYOCARDIAL INFARCTION. THE UPPER REFERENCE LIMIT (URL) OF TROPONIN, DEFINED THE 99TH PERCENTILE OF cTnI DISTRIBUTION IN A REFERENCE POPULATION, HAS BEEN CONFIRMED THE DECISION THRESHOLD FOR HI DIAGNOSIS. Performed By: #### P T, PTT #### [facility] [address] [place] [address] Dr. Mirza Sadler RACHEL 81 ng/mL Normal 16-96 [facility] Comment on above: Performed By: #### P T, PTT #### [facility] [address] [place] [address] Dr. Mirza Sadler CBC AUTO DIFFon 10-27-2021 BASO # 0.1 103/ul Normal 0.0-0.1 [facility] Comment on above: Performed By: #### E RUR #### [facility] [address] [place] [address] Dr. Mirza Sadler Basophils/100 WBC (Bld) 0.4 % Normal 0.2-2.0 [facility] Comment on above: Performed By: #### E RUR #### [facility] [address] [place] [address] Dr. Mirza Sadler EO # 0.1 103/ul Normal 0.0-0.7 [facility] Comment on above: Performed By: #### E RUR #### [facility] [address] [place] [address] Dr. Mirza Sadler Eosinophils/100 WBC (Bld) 0.4 % Critically low 0.9-7.0 [facility] Comment on above: Performed By: #### E RUR #### [facility] [address] [place] [address] Dr. Mirza Sadler Erythrocyte distribution width (RBC) [Ratio] 14.1 % Normal 11.0-15.0 [facility] Comment on above: Performed By: #### E RUR #### [facility] [address] [place] [address] Dr. Mirza Sadler Hematocrit (Bld) [Volume fraction] 41.0 % Critically low 42.0-54.0 [facility] Comment on above: Performed By: #### E RUR #### [facility] [address] [place] [address] Dr. Mirza Sadler Hemoglobin (Bld) [Mass/Vol] 14.1 g/dL Normal 14.0-18.0 [facility] Comment on above: Performed By: #### E RUR #### [facility] [address] [place] [address] Dr. Mirza Sadler IG # 0.05 10e3/ul Critically high 0.00-0.03 [facility] Comment on above: Performed By: #### E RUR #### [facility] [address] [place] [address] Dr. Mirza Sadler IG % 0.4 % Normal 0.0-0.5 [facility] Comment on above: Performed By: #### E RUR #### [facility] [address] [place] [address] Dr. Mirza Sadler LYMPH # 0.9 103/ul Critically low 1.2-3.8 [facility] Comment on above: Performed By: #### E RUR #### [facility] [address] [place] [address] Dr. Mirza Sadler Lymphocytes/100 WBC (Bld) 6.6 % Critically low 20.5-60.0 [facility] Comment on above: Performed By: #### E RUR #### [facility] [address] [place] [address] Dr. Mirza Sadler MANUAL DIFF REQ NO Normal [facility] Comment on above: Performed By: #### E RUR #### [facility] [address] [place] [address] Dr. Mirza Sadler MCH (RBC) [Entitic mass] 29.7 pg Normal 25.9-34.0 [facility] Comment on above: Performed By: #### E RUR #### [facility] [address] [place] [address] Dr. Mirza Sadler MCHC (RBC) [Mass/Vol] 34.4 g/dL Normal 29.9-35.2 [facility] Comment on above: Performed By: #### E RUR #### [facility] [address] [place] [address] Dr. Mirza Sadler MCV (RBC) [Entitic vol] 86.3 fL Normal 80.0-94.0 [facility] Comment on above: Performed By: #### E RUR #### [facility] [address] [place] [address] Dr. Mirza Sadler MONO # 0.4 103/ul Normal 0.3-0.8 [facility] Comment on above: Performed By: #### E RUR #### [facility] [address] [place] [address] Dr. Mirza Sadler Monocytes/100 WBC (Bld) 2.6 % Normal 1.7-12.0 [facility] Comment on above: Performed By: #### E RUR #### [facility] [address] [place] [address] Dr. Mirza Sadler NEUT # 12.2 103/ul Critically high 1.4-6.[address] [facility] Comment on above: Performed By: #### E RUR #### [facility] [address] [place] [address] Dr. Mirza Sadler Neutrophils/100 WBC (Bld) 89.6 % Critically high 43.0-75.0 [facility] Comment on above: Performed By: #### E RUR #### [facility] [address] [place] [address] Dr. Mirza Sadler Platelet mean volume (Bld) [Entitic vol] 9.7 fL Normal 9.5-13.5 [facility] Comment on above: Performed By: #### E RUR #### [facility] [address] [address] [address] Mirza Sadler PLT 183 103/ul Normal 150-450 [facility] Comment on above: Performed By: #### E RUR #### [facility] [address] [place] [address] Dr. Mirza Sadler RBC 4.75 106/ul Normal 4.70-6.10 [facility] Comment on above: Performed By: #### E RUR #### [facility] [address] [place] [address] Dr. Mirza Sadler WBC 13.7 103/ul Critically high 4.0-11.0 [facility] Comment on above: Performed By: #### E RUR #### [facility] [address] [place] [address] Dr. Mirza Sadler CULTURE BLOODon 10-27-2021 Microscopic examination of blood, culture Culture Observations: NO GROWTH AT 5 DAYS. Normal [facility] Comment on above: Performed By: #### B LDCX2 #### [facility] [address] [place] [address] Dr. Mirza Sadler Performed By: #### H STROPN #### [facility] [address] [place] [address] Dr. Mirza Sadler [facility] SARS-CoV-2 (COVID-19) RNA RAMO+probe Ql (Unsp spec) Not detected Normal NOT DETECTED [facility] Comment on above: Result Comment: When [...] for this test is supported by the [employer] and Human Service's declaration that [...] Performed By: #### P T, PTT #### [facility] [address] [place] [address] Dr. Mirza Sadler ER URINE PROFILEon 2 Bilirubin Ql (U) Negative Normal NEGATIVE [facility] Comment on above: Performed By: #### H STROPN #### [facility] [address] [place] [address] Dr. Mirza Sadler Clarity (U) CLEAR Normal CLEAR [facility] Comment on above: Performed By: #### H STROPN #### [facility] [address] [place] [address] Dr. Mirza Sadler Color (U) YELLOW Normal YELLOW [facility] Comment on above: Performed By: #### H STROPN #### [facility] [address] [place] [address] Dr. Mirza Sadler ERUAHD A micrscopic examina tion will be performed if indicated. Normal [facility] Comment on above: Performed By: #### H STROPN #### [facility] [address] [place] [address] Dr. Mirza Sadler Glucose Ql (U) >1000 Abnormal NEGATIVE [facility] Comment on above: Performed By: #### H STROPN #### [facility] [address] [place] [address] Dr. Mirza Sadler Hemoglobin Ql (U) Negative Normal NEGATIVE The [facility] Comment on above: Performed By: #### H STROPN #### [facility] [address] [place] [address] Dr. Mirza Sadler Ketones Ql (U) TRACE Abnormal NEGATIVE [facility] Comment on above: Performed By: #### H STROPN #### [facility] [address] [place] [address] Dr. Mirza Sadler LEUKOCYTES Negative Normal NEGATIVE [facility] Comment on above: Performed By: #### H STROPN #### [facility] [address] [place] [address] Dr. Mirza Sadler Nitrite Ql (U) Negative Normal NEGATIVE [facility] Comment on above: Performed By: #### H STROPN #### [facility] [address] [place] [address] Dr. Mirza Sadler pH (U) 5.5 [pH] Normal 5-9 [facility] Comment on above: Performed By: #### H STROPN #### [facility] [address] [place] [address] Dr. Mirza Sadler SPEC GRAVITY 1.010 Normal 1.005-<=1. 025 [facility] Comment on above: Performed By: #### H STROPN #### [facility] [address] [place] [address] Dr. Mirza Sadler UA PROTEIN Negative Normal NEGATIVE/ TRACE [facility] Comment on above: Performed By: #### H STROPN #### [facility] [address] [place] [address] Dr. Mirza Sadler UR MICRO IND NOT INDICATED Normal [facility] Comment on above: Performed By: #### H STROPN #### [facility] [address] [place] [address] Dr. Mirza Sadler Urobilinogen Qn (U) 0.2 {Luisito'U}/dL Normal 0.2 - 1. 0 [facility] Comment on above: Performed By: #### H STROPN #### [facility] [address] [place] [address] Dr. Mirza Sadler INFLUENZA A AND B AGon 10-27 [facility] BEL[facility] Normal [facility] Comment on above: Result Comment: Nega tive for Flu A protein angiten. Infection due to Flu A cannot be ruled out. Flu A angiten in the sample may be below the detection limit of the test. Performed By: #### B AUDIO VISUAL AIDS DIRECTOR #### [facility] [address] [place] [address] Dr. Mirza Sadler INFLUBNEGH SEE BELOW Normal [facility] Comment on above: Result Comment: Nega tive for Flu B protein antigen. Infection due to Flu B cannot be ruled out. Flu B antigen in the sample may be below the detection limit of the test. Performed By: #### B AUDIO VISUAL AIDS DIRECTOR #### [facility] [address] [place] [address] Dr. Mirza Sadler INFLUENZA A AG Negative Normal NEGATIVE SEE COMMENT [facility] Comment on above: Performed By: #### B AUDIO VISUAL AIDS DIRECTOR #### [facility] [address] [place] [address] Dr. Mirza Sadler INFLUENZA B AG Negative Normal NEGATIVE SEE COMMENT [facility] Comment on above: Performed By: #### B AUDIO VISUAL AIDS DIRECTOR #### [facility] [address] [place] [address] Dr. Mirza Sadler INTERNAL CONTROLS Within Normal Limits Normal Wi thin Normal Limits [facility] Comment on above: Performed By: #### B AUDIO VISUAL AIDS DIRECTOR #### [facility] [address] [place] [address] Dr. Mirza Sadler LACTATE/LACTIC ACIDon 2021 Lactate [Moles/Vol] 1.8 mmol/L Normal 0.4-1.9 [facility] Comment on above: Performed By: #### C MP, CMADM #### [facility] [address] [place] [address] Dr. Mirza Sadler LIPASEon 10-27-2021 Lipase [Catalytic activity/Vol] 87.0 U/L Normal 73.0-393.0 [facility] Comment on above: Performed By: #### P T, PTT #### [facility] [address] [place] [address] Dr. Mirza Sadler PH VENOUS BLOODon 10-27-2021 PCO2 VENOUS 37.6 mmHg Critically low 40.0-52.0 [facility] Comment on above: Performed By: #### P T, PTT #### [facility] [address] [place] [address] Dr. Mirza Sadler pH VENOUS 7.422 Normal 7.330-7.43 0 [facility] Comment on above: Performed By: #### P T, PTT #### [facility] [address] [place] [address] Dr. Mirza Sadler PROF 14(COMP METB)on 022 Albumin [Mass/Vol] 4.2 g/dL Normal 3.4-5.0 [facility] Comment on above: Performed By: #### P T, PTT #### [facility] [address] [place] [address] Dr. Mirza Sadler Albumin/Globulin [Mass ratio] 1.3 {ratio} Normal [facility] Comment on above: Performed By: #### P T, PTT #### [facility] [address] [address] [address] Mirza Sadler ALP [Catalytic activity/Vol] 121 U/L Critically high 46-116 [facility] Comment on above: Performed By: #### P T, PTT #### [facility] [address] [place] [address] Dr. Mirza Sadler ALT [Catalytic activity/Vol] 22 U/L Normal 16-63 [facility] Comment on above: Performed By: #### P T, PTT #### [facility] [address] [place] [address] Dr. Mirza Sadler Anion gap [Moles/Vol] 16.0 mmol/L Normal [facility] Comment on above: Performed By: #### P T, PTT #### [facility] [address] [place] [address] Dr. Mirza Sadler AST [Catalytic activity/Vol] 18 U/L Normal 15-37 [facility] Comment on above: Performed By: #### P T, PTT #### [facility] [address] [address] [address] Mirza Sadler Bilirubin [Mass/Vol] 1.3 mg/dL Critically high 0.2-1.0 [facility] Comment on above: Performed By: #### P T, PTT #### [facility] [address] [address] [address] Mirza Sadler Calcium [Mass/Vol] 8.9 mg/dL Normal 8.5-10.1 [facility] Comment on above: Performed By: #### P T, PTT #### [facility] [address] [address] [address] Mirza Sadler Chloride [Moles/Vol] 105 mmol/L Normal 98-107 [facility] Comment on above: Performed By: #### P T, PTT #### [facility] [address] [place] [address] Dr. Mirza Sadler CO2 [Moles/Vol] 23.7 mmol/L Normal 21.0-32.0 [facility] Comment on above: Performed By: #### P T, PTT #### [facility] [address] [place] [address] Dr. Mirza Sadler Creatinine [Mass/Vol] 1.79 mg/dL Critically high 0.70-1.30 [facility] Comment on above: Performed By: #### P T, PTT #### [facility] [address] [place] [address] Dr. Mirza Sadler EGFR-AF BAHAMIAN 46 mL/min/1.73m2 Critically low >=60 [facility] Comment on above: Performed By: #### P T, PTT #### [facility] [address] [place] [address] Dr. Mirza Sadler EGFR-NON AF BAHAMIAN 38 mL/min/1.73m2 Critically low >=60 [facility] Comment on above: Performed By: #### P T, PTT #### [facility] [address] [place] [address] Dr. Mirza Sadler Globulin (S) [Mass/Vol] 3.3 g/dL Normal [facility] Comment on above: Performed By: #### P T, PTT #### [facility] [address] [place] [address] Dr. Mirza Sadler Glucose [Mass/Vol] 195 mg/dL Critically high 74-106 [facility] Comment on above: Performed By: #### P T, PTT #### [facility] [address] [place] [address] Dr. Mirza Sadler Potassium [Moles/Vol] 3.7 mmol/L Normal 3.5-5.1 [facility] Comment on above: Performed By: #### P T, PTT #### [facility] [address] [place] [address] Dr. Mirza Sadler Protein [Mass/Vol] 7.5 g/dL Normal 6.4-8.2 [facility] Comment on above: Performed By: #### P T, PTT #### [facility] [address] [place] [address] Dr. Mirza Sadler Sodium [Moles/Vol] 141 mmol/L Normal 136-145 [facility] Comment on above: Performed By: #### P T, PTT #### [facility] [address] [address] [address] Mirza Sadler Urea nitrogen [Mass/Vol] 25.0 mg/dL Critically high 7.0-18.0 [facility] Comment on above: Performed By: #### P T, PTT #### [facility] [address] [place] [address] Dr. Mirza Sadler Urea nitrogen/Creatinine [Mass ratio] 14.0 mg/mg Normal [facility] Comment on above: Performed By: #### P T, PTT #### [facility] [address] [place] [address] Dr. Mirza Sadler PROTIMEon 10-27-2021 INR Coag (PPP) [Relative time] 1.07 {INR} Normal [facility] Comment on above: Performed By: #### P T, PTT #### [facility] [address] [place] [address] Dr. Mirza Sadler INR GUIDELINES SEE BELOW Normal [facility] Comment on above: Result Comment: RIVKA RED INR: 2.0 - 3.0 CONDITIONS NOT LISTED BELOW 2.5 - 3.5 FOR PROSTHETIC HEART VALVE REPLACEMENT 2.5 - 3.5 RECURRENT THROMBOSIS Performed By: #### P T, PTT #### [facility] [address] [place] [address] Dr. Mirza Sadler PT Coag (PPP) [Time] 11.5 s Normal 9.0-11.6 [facility] Comment on above: Performed By: #### P T, PTT #### [facility] [address] [place] [address] Dr. Mirza Sadler PTTon 10-27-2021 aPTT Coag (Bld) [Time] 25.1 s Normal 22.3-36.2 [facility] Comment on above: Performed By: #### P T, PTT #### [facility] [address] [address] [address] Mirza Sadler XR CHEST 1 Von [...] GAGAN CAREY Date: 2021-10-27 10:21 Normal [facility] ----- LANI LIZAMA ([id number]) 1950 Date Time Provider Department 10/20/21 AMOSKARENHeather ABDON PAZ During your visit today, we recorded the following information about you: Vee Day 10/20/2021 9:43 AM Signed New CBC order. Vee Day Allergies As of Date: 10/20/2021 Noted Allergy Reaction Nkda [Other] 07/28/2018 16 - Unknown Comments: Received name: Nkda Date Reviewed: 10/20/2021 Reviewed by: Vickie Barrera PA-C - Fully Assessed Reason for Visit: Lab Orders [1687] Primary Visit Diagnosis:Monoclonal gammopathy [D47.2] Order(s):CBC + DIFF [SQCBCDIF] Order #: [id number] FUTURE Prescriptions as of 10/24/2021 - famotidine [...] Status:Closed by VEE DAY on 10/24/[address] [facility] [address] ABD/PELVIS WO CONon 10-03 CT [...] by: HIGINIO FLANAGAN Date: 2021-10-03 16:29 Normal [facility] PROF 14(COMP METB)on 022 Albumin [Mass/Vol] 4.1 g/dL Normal 3.4-5.0 [facility] Comment on above: Performed By: #### P T, PTT #### [facility] [address] [address] [address] Mirza Sadler Albumin/Globulin [Mass ratio] 1.2 {ratio} Normal [facility] Comment on above: Performed By: #### P T, PTT #### [facility] [address] [place], [place] [address] Dr. Mirza Sadler ALP [Catalytic activity/Vol] 132 U/L Critically high 46-116 [facility] Comment on above: Performed By: #### P T, PTT #### [facility] [address] [address] [address] Mirza Sadler ALT [Catalytic activity/Vol] 30 U/L Normal 16-63 [facility] Comment on above: Performed By: #### P T, PTT #### [facility] [address] [address] [address] Mirza Sadler Anion gap [Moles/Vol] 10.7 mmol/L Normal [facility] Comment on above: Performed By: #### P T, PTT #### [facility] [address] [address] [address] Mirza Sadler AST [Catalytic activity/Vol] 21 U/L Normal 15-37 [facility] Comment on above: Performed By: #### P T, PTT #### [facility] [address] [place] [address] Dr. Mirza Sadler Bilirubin [Mass/Vol] 0.7 mg/dL Normal 0.2-1.0 [facility] Comment on above: Performed By: #### P T, PTT #### [facility] [address] [place] [address] Dr. Mirza Sadler Calcium [Mass/Vol] 9.0 mg/dL Normal 8.5-10.1 [facility] Comment on above: Performed By: #### P T, PTT #### [facility] [address] [place] [address] Dr. Mirza Sadler Chloride [Moles/Vol] 106 mmol/L Normal 98-107 [facility] Comment on above: Performed By: #### P T, PTT #### [facility] [address] [place] [address] Dr. Mirza Sadler CO2 [Moles/Vol] 27.5 mmol/L Normal 21.0-32.0 [facility] Comment on above: Performed By: #### P T, PTT #### [facility] [address] [address] [address] Mirza Sadler Creatinine [Mass/Vol] 1.77 mg/dL Critically high 0.70-1.30 [facility] Comment on above: Performed By: #### P T, PTT #### [facility] [address] [address] [address] Mirza Sadler EGFR-AF BAHAMIAN 46 mL/min/1.73m2 Critically low >=60 [facility] Comment on above: Performed By: #### P T, PTT #### [facility] [address] [address] [address] Mirza Sadler EGFR-NON AF BAHAMIAN 38 mL/min/1.73m2 Critically low >=60 [facility] Comment on above: Performed By: #### P T, PTT #### [facility] [address] [address] [address] Mirza Sadler Globulin (S) [Mass/Vol] 3.5 g/dL Normal [facility] Comment on above: Performed By: #### P T, PTT #### [facility] [address] [address] [address] Mirza Sadler Glucose [Mass/Vol] 135 mg/dL Critically high 74-106 [facility] Comment on above: Performed By: #### P T, PTT #### [facility] [address] [address] [address] Mirza Sadler Potassium [Moles/Vol] 4.2 mmol/L Normal 3.5-5.1 [facility] Comment on above: Performed By: #### P T, PTT #### [facility] [address] [address] [address] Mirza Sadler Protein [Mass/Vol] 7.6 g/dL Normal 6.4-8.2 [facility] Comment on above: Performed By: #### P T, PTT #### [facility] [address] [address] [address] Mirza Sadler Sodium [Moles/Vol] 140 mmol/L Normal 136-145 [facility] Comment on above: Performed By: #### P T, PTT #### [facility] [address] [address] [address] Mirza Sadler Urea nitrogen [Mass/Vol] 17.0 mg/dL Normal 7.0-18.0 [facility] Comment on above: Performed By: #### P T, PTT #### [facility] [address] [place], [place] [address] Dr. Mirza Sadler Urea nitrogen/Creatinine [Mass ratio] 9.6 mg/mg Normal [facility] Comment on above: Performed By: #### P T, PTT #### [facility] [address] [place], [place] [address] Dr. Mirza Sadler US SINGLE QUAD RT [...] by: HIGINIO FLANAGAN Date: 2021-08-27 08:40 Normal [facility] A1C HEMOGLOBINon 07-17-2021 HbA1c (Bld) [Mass fraction] 6.9 % [employer] Other Glucose - FINGER STICKon Glucose [Mass/Vol] 180 mg/dL [employer] Other HbA1c (Bld) [Mass fraction]o n 07-17-2021 A1C HEMOGLOBIN [employer] Other A1C with Estimated Average G luon 04-10-2021 HbA1c (Bld) [Mass fraction] 6.4 % [employer] Other HbA1c (Bld) [Mass fraction] 243 % [employer] Other Glucoseon 04-10-2021 Glucose [Mass/Vol] 243 mg/dL [employer] Other A1C HEMOGLOBINon 01-03-2021 HbA1c (Bld) [Mass fraction] 6.6 % [employer] Other Glucose - FINGER STICKon Glucose [Mass/Vol] 142 mg/dL [employer] Other HbA1c (Bld) [Mass fraction]o n 01-03-2021 A1C HEMOGLOBIN [facility] [employer] Other CNPNon 10-27-2020 CNPN Telephone (HEMASA) ----- LANI LIZAMA ([id number]) 1950 M Date Time Provider Department 10/27/20 [...] Status:Closed by ANGELINE WARE on 10/28/20 Normal [facility] Cardiovascular Lab Reporton 10-16-2018 Cardiovascular Lab Report [facility] Patient Name: Lani Lizama [facility] MR #: [id number] Physician: Pinky Bishop, Department of M.D. Medicine Service Date: 10/15/2018 Division of Birthdate: 1950 Cardiology Room #: [id number] Adult Cardiovascular Services [facility] [address]. [place] [address] Cardiovascular Laboratory Report FINAL IMPRESSIONS: 1. Severe three-vessel tanacross coronary artery disease. 2. Rozm-yl-vnte bypass grafts patent. 3. Mild in-stent restenosis [...] 4. Follow up with me in the [facility] in the next 4-6 weeks. 5. [...] guidance and using a micropuncture kit. A 6-Guyanese Glidesheath was inserted without difficulty. Coronary angiography [...] of the vessel. There is evidence of glrd-hz-oouay collaterals. The distal vessel is supplied via [...] is a long stented segment in the xvrgbyot-nl-jhvmzo portion of the vessel with 30% in-stent restenosis. The vessel distal to the touchdown shows caliber reduction and no discrete stenosis. There is diffuse disease in the branches. Saphenous vein graft to the posterior descending artery. This is widely patent. It shows an extensive stented segment from lytpfcuy-dj-xppjivpwou of the vessel. There is a 40%-50% [...] Bishop M.D. Date Trans: 10/16/2018 05:01 Nakul/gatito [id number] cc: Harley Crespo D.O. [address] [place] [id number] Normal [facility] BASIC METABOLIC PANELon 09-29 Calcium [Mass/Vol] 8.9 mg/dL Normal 8.6-10.3 [facility] Comment on above: Order Comment: No: D o not add to previous draw Performed By: #### 1 69, [id number] #### [facility] [address] [place] [address], [place] Chloride [Moles/Vol] 110 mmol/L High 98-107 [facility] Comment on above: Order Comment: No: D o not add to previous draw Performed By: #### 1 69, [id number] #### [facility] [address] [place] [address], [place] CO2 [Moles/Vol] 26 mmol/L Normal 21-31 [facility] Comment on above: Order Comment: No: D o not add to previous draw Performed By: #### 1 69, [id number] #### [facility] [address] [place] [address], [place] Creatinine [Mass/Vol] 1.52 mg/dL High 0.70-1.30 [facility] Comment on above: Order Comment: No: D o not add to previous draw Performed By: #### 1 69, [id number] #### [facility] [address] [place] [address], [place] GFR/1.73 sq M predicted among blacks MDRD (S/P/Bld) [Vol rate/Area] 56 ml/min/1.73sq m Abnormal >60 [facility] Comment on above: Order Comment: No: D o not add to previous draw Performed By: #### 1 69, 17826 #### [facility] [address] [place] [address], [facility] GFR/1.73 sq M predicted among non-blacks MDRD (S/P/Bld) [Vol rate/Area] 46 ml/min/1.73sq m Abnormal >60 [facility] Comment on above: Order Comment: No: D o not add to previous draw Performed By: #### 1 69, 82200 #### [facility] [address] [place] [address], [facility] Glucose [Mass/Vol] 89 mg/dL Normal 70-100 [facility] Comment on above: Order Comment: No: D o not add to previous draw Performed By: #### 1 69, 27054 #### [facility] [address] [place] [address], [facility] Potassium [Moles/Vol] 3.9 mmol/L Normal 3.5-5.1 [facility] Comment on above: Order Comment: No: D o not add to previous draw Performed By: #### 1 69, 19083 #### [facility] [address] [place] [address], [facility] Sodium [Moles/Vol] 141 mmol/L Normal 136-145 [facility] Comment on above: Order Comment: No: D o not add to previous draw Performed By: #### 1 69, 34214 #### [facility] [address] [place] [address], [facility] Urea nitrogen [Mass/Vol] 19 mg/dL Normal 7-25 [facility] Comment on above: Order Comment: No: D o not add to previous draw Performed By: #### 1 69, 34416 #### [facility] [address] [place] [address], [facility] CBC W/DIFFon 10-15-2018 ABS BASOPHILS 0.1 10*3/uL Normal 0.0-0.2 [facility] Comment on above: Order Comment: No: D o not add to previous draw Performed By: #### 5 0103 #### [facility] [address] [place] [address], [facility] ABS IMM GRANS 0.0 10*3/uL Normal 0.0-0.2 [facility] Comment on above: Order Comment: No: D o not add to previous draw Performed By: #### 5 0103 #### [facility] [address] [place] [address], [facility] ABS NEUTROPHILS 3.5 10*3/uL Normal 1.6-7.6 [facility] Comment on above: Order Comment: No: D o not add to previous draw Performed By: #### 5 0103 #### [facility] [address] [place] [address], [facility] Basophils/100 WBC (Bld) 0.8 % Normal 0.0-1.0 [facility] Comment on above: Order Comment: No: D o not add to previous draw Performed By: #### 5 0103 #### [facility] [address] [facility] [place] [address], [facility] Eosinophils (Bld) [#/Vol] 0.3 10*3/uL Normal 0.0-0.5 [facility] Comment on above: Order Comment: No: D o not add to previous draw Performed By: #### 5 0103 #### [facility] [address] [facility] [place] [id number], [facility] Eosinophils/100 WBC (Bld) 3.9 % Normal 0.0-6.0 [facility] Comment on above: Order Comment: No: D o not add to previous draw Performed By: #### 5 0103 #### [facility] [address] [facility] [place] [address], [facility] Erythrocyte distribution width (RBC) [Ratio] 13.5 % Normal 11.5-15.0 [facility] Comment on above: Order Comment: No: D o not add to previous draw Performed By: #### 5 0103 #### [facility] [address] [place] [id number], [facility] Hematocrit (Bld) [Volume fraction] 39.7 % Normal 39.0-50.0 [facility] Comment on above: Order Comment: No: D o not add to previous draw Performed By: #### 5 3 #### [facility] [address] [place] [address], [facility] Hemoglobin (Bld) [Mass/Vol] 13.0 g/dL Normal 13.0-17.0 [facility] Comment on above: Order Comment: No: D o not add to previous draw Performed By: #### 5 3 #### [facility] [address] [place] [address], [facility] IMMATURE GRANS 0.3 % Normal 0.0-1.0 [facility] Comment on above: Order Comment: No: D o not add to previous draw Performed By: #### 5 3 #### [facility] [address] [facility] [place] [address], [facility] Lymphocytes (Bld) [#/Vol] 1.9 10*3/uL Normal 1.2-4.0 [facility] Comment on above: Order Comment: No: D o not add to previous draw Performed By: #### 5 3 #### [facility] [address] [facility] [place] [address], [facility] Lymphocytes/100 WBC (Bld) 30.1 % Normal 20.0-45.0 [facility] Comment on above: Order Comment: No: D o not add to previous draw Performed By: #### 5 3 #### [facility] [address] [place] [address], [facility] MCH (RBC) [Entitic mass] 30.0 pg Normal 27.0-33.0 [facility] Comment on above: Order Comment: No: D o not add to previous draw Performed By: #### 5 3 #### [facility] [address] [place] [address], [facility] MCHC (RBC) [Mass/Vol] 32.7 g/dL Normal 32.0-35.0 [facility] Comment on above: Order Comment: No: D o not add to previous draw Performed By: #### 5 0103 #### [facility] [address] [place] [id number], [facility] MCV (RBC) [Entitic vol] 91.5 fL Normal 82.0-98.0 [facility] Comment on above: Order Comment: No: D o not add to previous draw Performed By: #### 5 3 #### [facility] [address] [place] [address], [facility] Monocytes (Bld) [#/Vol] 0.7 10*3/uL Normal 0.1-1.0 [facility] Comment on above: Order Comment: No: D o not add to previous draw Performed By: #### 5 3 #### [facility] [address] [place] [address], [facility] MONOS 10.7 % Normal 5.0-12.0 [facility] Comment on above: Order Comment: No: D o not add to previous draw Performed By: #### 5 3 #### [facility] [address] [place] [address], [facility] Neutrophils/100 WBC (Bld) 54.2 % Normal 40.0-72.0 [facility] Comment on above: Order Comment: No: D o not add to previous draw Performed By: #### 5 0103 #### [facility] [address] [place] [address], [facility] Nucleated RBC/100 WBC (Bld) [Ratio] 0 % Normal 0-0 [facility] Comment on above: Order Comment: No: D o not add to previous draw Performed By: #### 5 3 #### [facility] [address] PLAT CNT 164 10*3/uL Normal 150-400 [facility] Comment on above: Order Comment: No: D o not add to previous draw Performed By: #### 5 0103 #### [facility] [address] RBC (Bld) [#/Vol] 4.34 10*6/uL Normal 4.20-5.70 [facility] Comment on above: Order Comment: No: D o not add to previous draw Performed By: #### 5 0103 #### [facility] [address] WBC (Bld) [#/Vol] 6.38 10*3/uL Normal 4.00-10.60 [facility] Comment on above: Order Comment: No: D o not add to previous draw Performed By: #### 5 0103 #### [facility] [address] MAGNESIUM BLOODon 10-15-2018 Magnesium [Mass/Vol] 2.0 mg/dL Normal 1.9-2.7 [facility] Comment on above: Order Comment: No: D o not add to previous draw Performed By: #### 1 0070, [id number] #### [facility] [address] PROTHROMBIN TIMEon 9 INR Coag (PPP) [Relative time] 1.11 {INR} Normal 0.91-1.16 [facility] Comment on above: Order Comment: [...] 1995;108:[id number]. Performed By: #### 5 6101 #### [address] PT Coag (PPP) [Time] 14.3 s Normal 12.3-14.8 [facility] Comment on above: Order Comment: No: D o not add to previous draw Result Comment: ALL RESULTS MUST BE INTERPRETED WITH RESPECT TO BLOOD DRAWING ARTIFACT OR DILUTION ERROR OF ANTICOAGULANT AT THE TIME OF SAMPLING. Performed By: #### 5 6101 #### [address] POC GLUCOSE LABon 10-14-2018 Glucose [Mass/Vol] 180 mg/dL High 70-100 [facility] Comment on above: Performed By: #### 8 5499 #### [address] Cardiovascular Lab Reporton 02-25-2018 Cardiovascular Lab Report [facility] Patient Name: Lani Lizama [facility] MR #: [id number] Physician: Pinky Bishop, Department of M.D. Medicine Service Date: 02/24/2018 Division of Birthdate: 1950 Cardiology Room #: 3AB [id number] Adult Cardiovascular Services [place] [address] Cardiovascular Laboratory Report FINAL IMPRESSIONS: 1. 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 2. Severe 3-vessel tanacross coronary artery disease. 3. 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 4. Djyacxim-[id number] systemic hypertension. RECOMMENDATIONS: 1. Aspirin 81 mg lifelong. 2. 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 3. Aggressive cardiovascular risk factor modification. 4. Optimization of medical management; high intensity statin therapy as tolerated, we will switch his Toprol-XL to Coreg 25 mg p.o. b.i.d., and angiotensin-converting enzyme inhibitor. 5. Follow up with me in the [facility] in the next 2-3 weeks. 6. Follow up with Dr. Crespo as scheduled. PROCEDURES: Limited femoral angiography, bilateral selective coronary angiography, saphenous vein graft angiography, angiography of the left internal mammary artery graft, limited angiography of the left subclavian, percutaneous balloon angioplasty, and Synergy drug-eluting stent placement to the saphenous vein graft to the obtuse marginal, placement of a 6-Guyanese MYNXGRIP closure device. METHODS: After risks, benefits, and alternatives were explained, written informed consent was obtained. The patient was prepped and draped in usual sterile fashion over both groins. Using 1% lidocaine solution, local infiltration anesthesia was achieved over the right groin. Using a micropuncture kit, access of the right common femoral artery was obtained. A 6-Guyanese 11 cm sheath was exchanged then without [...] to proceed with an interventional procedure. A 6-Guyanese JR4 guide catheter was advanced in and [...] the procedure. All catheters were removed. A 6-Guyanese MYNXGRIP closure device was deployed per protocol [...] is a 30% touchdown stenosis of the tanacross vessel. There is evidence of [id number] collaterals supplying the distal right coronary artery. Limited femoral angiography, this shows mild plaque and anatomy suitable for closure device. INDICATIONS: Unstable angina. Electronically Signed by: Pinky Bishop M.D. 03/06/2018 12:15 P Pinky Bishop M.D. Date Dict: 02/24/2018/01:39 May/Pinky Bishop M.D. Date Trans: 02/25/2018 02:12 A/gatito [id number] cc: Harley Crespo D.O. [address] [place] [id number] Normal [facility] POC GLUCOSE LABon 02-25-2018 Glucose [Mass/Vol] 150 mg/dL High 70-100 [facility] Comment on above: Performed By: #### 8 5499 #### [facility] [address] [place] [address], [place] POC GLUCOSE LABon 02-24-2018 Glucose [Mass/Vol] 192 mg/dL High 70-100 [facility] Comment on above: Performed By: #### 8 5499 #### [facility] [address] [place] [address], [place] Glucose [Mass/Vol] 186 mg/dL High 70-100 [facility] Comment on above: Performed By: #### 8 5499 #### [facility] [address] [place] [address], [place] Vital Signs Date Time Vital Sign Value Performing Clinician Facility 09-24-2024 08:32-0400 Body height 170.2 cm Kenneth Tavera DPM Work Phone: [facility] 09-24-2024 08:32-0400 Body mass index (BMI) [Ratio] 26.78 kg/m2 Kenneth Tavera DPM Work Phone: [facility] 09-24-2024 08:32-0400 Body weight 77.56 kg Kenneth Tavera DPM Work Phone: [facility] 09-24-2024 08:32-0400 Respiratory rate 18 /min Kenneth Tavera DPM Work Phone: [facility] 08-25-2024 11:33-0400 Body height 170.18 cm [facility] 08-25-2024 11:33-0400 Body mass index (BMI) [Ratio] 26.9 kg/m2 [facility] 08-25-2024 11:33-0400 Body weight 77.79 kg [facility] 08-25-2024 11:33-0400 Diastolic blood pressure 73 mm[Hg] [facility] 08-25-2024 11:33-0400 Heart rate 77 /min [facility] 08-25-2024 11:33-0400 Respiratory rate 12 /min [facility] 08-25-2024 11:33-0400 SaO2% (BldA) [Mass fraction] 97 % [facility] 08-25-2024 11:33-0400 Systolic blood pressure 126 mm[Hg] [facility] 08-03-2024 09:28-0400 Body height 170.18 cm Harley Ball DO Work Phone: [facility] 08-03-2024 09:28-0400 Body mass index (BMI) [Ratio] 31.8 kg/m2 Harley Ball DO Work Phone: [facility] 08-03-2024 09:28-0400 Body weight 92.4 kg Harley Ball DO Work Phone: [facility] 08-03-2024 09:28-0400 Diastolic blood pressure 83 mm[Hg] Harley Ball DO Work Phone: [facility] 08-03-2024 09:28-0400 Heart rate 77 /min Harley Ball DO Work Phone: [facility] 08-03-2024 09:28-0400 Respiratory rate 18 /min Harley Ball DO Work Phone: [facility] 08-03-2024 09:28-0400 SaO2% (BldA) [Mass fraction] 99 % Harley Ball DO Work Phone: [facility] 08-03-2024 09:28-0400 Systolic blood pressure 143 mm[Hg] Harley Ball DO Work Phone: [facility] 07-27-2024 11:29-0400 Diastolic blood pressure 80 mm[Hg] Harley Ball DO Work Phone: [facility] 07-27-2024 11:29-0400 Heart rate 74 /min Harley Ball DO Work Phone: [facility] 07-27-2024 11:29-0400 Systolic blood pressure 143 mm[Hg] Harley Ball DO Work Phone: [facility] 07-27-2024 11:23-0400 Body height 170.18 cm Harley Ball DO Work Phone: [facility] 07-27-2024 11:23-0400 Body mass index (BMI) [Ratio] 28.8 kg/m2 Harley Ball DO Work Phone: [facility] 07-27-2024 11:23-0400 Body weight 83.57 kg Harley Ball DO Work Phone: [facility] 07-27-2024 11:23-0400 Respiratory rate 12 /min Harley Ball DO Work Phone: [facility] 07-27-2024 11:23-0400 SaO2% (BldA) [Mass fraction] 100 % Harley Ball DO Work Phone: [facility] 07-14-2024 09:43-0400 Body height 170.18 cm Harley Ball DO Work Phone: [facility] 07-14-2024 09:43-0400 Body mass index (BMI) [Ratio] 28.1 kg/m2 Harley Ball DO Work Phone: [facility] 07-14-2024 09:43-0400 Body weight 81.64 kg Harley Ball DO Work Phone: [facility] 07-14-2024 09:43-0400 Diastolic blood pressure 83 mm[Hg] Harley Ball DO Work Phone: [facility] 07-14-2024 09:43-0400 Heart rate 74 /min Harley Ball DO Work Phone: [facility] 07-14-2024 09:43-0400 Respiratory rate 16 /min Harley Ball DO Work Phone: [facility] 07-14-2024 09:43-0400 SaO2% (BldA) [Mass fraction] 99 % Harley Ball DO Work Phone: [facility] 07-14-2024 09:43-0400 Systolic blood pressure 141 mm[Hg] Harley Ball DO Work Phone: [facility] 04-30-2024 09:42-0500 Body height 170.18 cm [facility] 04-30-2024 09:42-0500 Body mass index (BMI) [Ratio] 27.9 kg/m2 [facility] 04-30-2024 09:42-0500 Body weight 80.96 kg [facility] 04-30-2024 09:42-0500 Diastolic blood pressure 80 mm[Hg] [facility] 04-30-2024 09:42-0500 Heart rate 81 /min [facility] 04-30-2024 09:42-0500 Respiratory rate 18 /min [facility] 04-30-2024 09:42-0500 SaO2% (BldA) [Mass fraction] 98 % [facility] 04-30-2024 09:42-0500 Systolic blood pressure 134 mm[Hg] [facility] 04-16-2024 08:24-0500 Body height 170.18 cm [facility] 04-16-2024 08:24-0500 Body mass index (BMI) [Ratio] 28.2 kg/m2 [facility] 04-16-2024 08:24-0500 Body weight 81.76 kg [facility] 04-16-2024 08:24-0500 Diastolic blood pressure 80 mm[Hg] [facility] 04-16-2024 08:24-0500 Heart rate 84 /min [facility] 04-16-2024 08:24-0500 Respiratory rate 12 /min [facility] 04-16-2024 08:24-0500 SaO2% (BldA) [Mass fraction] 97 % [facility] 04-16-2024 08:24-0500 Systolic blood pressure 137 mm[Hg] [facility] 04-02-2024 11:44-0500 Body height 170.2 cm Kenneth Tavera DPM Work Phone: [facility] 04-02-2024 11:44-0500 Body mass index (BMI) [Ratio] 26.78 kg/m2 Kenneth Tavera DPM Work Phone: [facility] 04-02-2024 11:44-0500 Body weight 77.56 kg Kenneth Tavera DPM Work Phone: [facility] 04-02-2024 11:44-0500 Respiratory rate 18 /min Kenneth Tavera DPM Work Phone: [facility] 02-24-2024 09:46-0500 Body height 170.18 cm [facility] 02-24-2024 09:46-0500 Body mass index (BMI) [Ratio] 27.1 kg/m2 [facility] 02-24-2024 09:46-0500 Body weight 78.47 kg [facility] 02-24-2024 09:46-0500 Diastolic blood pressure 68 mm[Hg] [facility] 02-24-2024 09:46-0500 Heart rate 80 /min [facility] 02-24-2024 09:46-0500 SaO2% (BldA) [Mass fraction] 97 % [facility] 02-24-2024 09:46-0500 Systolic blood pressure 110 mm[Hg] [facility] 01-23-2024 11:29-0400 Body height 170.2 cm Kenneth Tavera DPM Work Phone: [facility] 01-23-2024 11:29-0400 Body mass index (BMI) [Ratio] 26.78 kg/m2 Kenneth Tavera DPM Work Phone: [facility] 01-23-2024 11:29-0400 Body weight 77.56 kg Kenneth Tavera DPM Work Phone: [facility] 01-23-2024 11:29-0400 Diastolic blood pressure 82 mm[Hg] Kenneth Tavera DPM Work Phone: [facility] 01-23-2024 11:29-0400 Heart rate 88 /min Kenneth Tavera DPM Work Phone: [facility] 01-23-2024 11:29-0400 Systolic blood pressure 128 mm[Hg] Kenneth Tavera DPM Work Phone: [facility] 01-23-2024 09:05-0400 Body height 170.18 cm [facility] 01-23-2024 09:05-0400 Body mass index (BMI) [Ratio] 27.3 kg/m2 [facility] 01-23-2024 09:05-0400 Body weight 79.37 kg [facility] 01-23-2024 09:05-0400 Diastolic blood pressure 71 mm[Hg] [facility] 01-23-2024 09:05-0400 Heart rate 78 /min [facility] 01-23-2024 09:05-0400 Respiratory rate 18 /min [facility] 01-23-2024 09:05-0400 SaO2% (BldA) [Mass fraction] 98 % [facility] 01-23-2024 09:05-0400 Systolic blood pressure 106 mm[Hg] [facility] 01-07-2024 08:26-0400 Body height 170.18 cm [facility] 01-07-2024 08:26-0400 Body mass index (BMI) [Ratio] 27.2 kg/m2 [facility] 01-07-2024 08:26-0400 Body temperature 96.7 [degF] [facility] 01-07-2024 08:26-0400 Body weight 78.98 kg [facility] 01-07-2024 08:26-0400 Diastolic blood pressure 77 mm[Hg] [facility] 01-07-2024 08:26-0400 Heart rate 91 /min [facility] 01-07-2024 08:26-0400 Respiratory rate 16 /min [facility] 01-07-2024 08:26-0400 SaO2% (BldA) [Mass fraction] 97 % [facility] 01-07-2024 08:26-0400 Systolic blood pressure 123 mm[Hg] [facility] 12-12-2023 08:25-0400 Body height 170.18 cm [facility] 12-12-2023 08:25-0400 Body mass index (BMI) [Ratio] 27.4 kg/m2 [facility] 12-12-2023 08:25-0400 Body weight 79.49 kg [facility] 12-12-2023 08:25-0400 Diastolic blood pressure 79 mm[Hg] [facility] 12-12-2023 08:25-0400 Heart rate 80 /min [facility] 12-12-2023 08:25-0400 Respiratory rate 12 /min [facility] 12-12-2023 08:25-0400 Systolic blood pressure 127 mm[Hg] [facility] 10-17-2023 09:21-0400 Body height 170.18 cm [facility] 10-17-2023 09:21-0400 Body mass index (BMI) [Ratio] 28.2 kg/m2 [facility] 10-17-2023 09:21-0400 Body weight 81.81 kg [facility] 10-17-2023 09:21-0400 Diastolic blood pressure 79 mm[Hg] [facility] 10-17-2023 09:21-0400 Heart rate 70 /min [facility] 10-17-2023 09:21-0400 Respiratory rate 18 /min [facility] 10-17-2023 09:21-0400 SaO2% (BldA) [Mass fraction] 97 % [facility] 10-17-2023 09:21-0400 Systolic blood pressure 133 mm[Hg] [facility] 08-12-2023 08:37-0400 Body height 170.18 cm [facility] 08-12-2023 08:37-0400 Body mass index (BMI) [Ratio] 27.6 kg/m2 [facility] 08-12-2023 08:37-0400 Body weight 79.88 kg [facility] 08-12-2023 08:37-0400 Diastolic blood pressure 84 mm[Hg] [facility] 08-12-2023 08:37-0400 Heart rate 82 /min [facility] 08-12-2023 08:37-0400 Respiratory rate 12 /min [facility] 08-12-2023 08:37-0400 Systolic blood pressure 134 mm[Hg] [facility] 07-02-2023 08:54-0400 Body height 170.18 cm [facility] 07-02-2023 08:54-0400 Body mass index (BMI) [Ratio] 27.3 kg/m2 [facility] 07-02-2023 08:54-0400 Body temperature 96.5 [degF] [facility] 07-02-2023 08:54-0400 Body weight 79.09 kg [facility] 07-02-2023 08:54-0400 Diastolic blood pressure 79 mm[Hg] [facility] 07-02-2023 08:54-0400 Heart rate 87 /min [facility] 07-02-2023 08:54-0400 Respiratory rate 18 /min [facility] 07-02-2023 08:54-0400 SaO2% (BldA) [Mass fraction] 96 % [facility] 07-02-2023 08:54-0400 Systolic blood pressure 120 mm[Hg] [facility] 06-18-2023 10:51-0400 Body height 170.18 cm [facility] 06-18-2023 10:51-0400 Body mass index (BMI) [Ratio] 26.6 kg/m2 [facility] 06-18-2023 10:51-0400 Body weight 77.11 kg [facility] 06-18-2023 10:51-0400 Diastolic blood pressure 84 mm[Hg] [facility] 06-18-2023 10:51-0400 Heart rate 95 /min [facility] 06-18-2023 10:51-0400 Respiratory rate 18 /min [facility] 06-18-2023 10:51-0400 SaO2% (BldA) [Mass fraction] 97 % [facility] 06-18-2023 10:51-0400 Systolic blood pressure 127 mm[Hg] [facility] 05-03-2023 09:30-0500 Body height 170.18 cm DO Harley Ball Work Phone: [facility] 05-03-2023 09:30-0500 Body weight 77.29 kg DO Harley Ball Work Phone: [facility] 05-03-2023 09:30-0500 Diastolic blood pressure 85 mm[Hg] DO Harley Ball Work Phone: [facility] 05-03-2023 09:30-0500 Systolic blood pressure 126 mm[Hg] DO Harley Ball Work Phone: [facility] 03-12-2023 11:15-0500 Body height 170.18 cm Tondra Mapus Other [facility] 03-12-2023 11:15-0500 Body mass index (BMI) [Ratio] 27.03 kg/m2 Tondra Mapus Other [employer] Other 03-12-2023 11:15-0500 Body weight 78.29 kg Tondra Mapus Other [facility] 03-12-2023 11:15-0500 Diastolic blood pressure 79 mm[Hg] Tondra Mapus Other [facility] 03-12-2023 11:15-0500 Respiratory rate 18 /min Tondra Mapus Other [employer] Other 03-12-2023 11:15-0500 SaO2% (BldA) [Mass fraction] 98 % Tondra Mapus Other [employer] Other 03-12-2023 11:15-0500 Systolic blood pressure 128 mm[Hg] Tondra Mapus Other [facility] 01-07-2023 10:00-0400 Body height 170.18 cm Kingsley Latisha Other [employer] Other 01-07-2023 10:00-0400 Body mass index (BMI) [Ratio] 27 kg/m2 Kingsley Latisha Other [employer] Other 01-07-2023 10:00-0400 Body temperature 97.7 [degF] Kingsley Latisha Other [employer] Other 01-07-2023 10:00-0400 Body weight 78.2 kg Kingsley Latisha Other [employer] Other 01-07-2023 10:00-0400 Diastolic blood pressure 73 mm[Hg] Kingsley Latisha Other [employer] Other 01-07-2023 10:00-0400 Respiratory rate 16 /min Kingsley Latisha Other [employer] Other 01-07-2023 10:00-0400 SaO2% (BldA) [Mass fraction] 98 % Kingsley Latisha Other [employer] Other 01-07-2023 10:00-0400 Systolic blood pressure 108 mm[Hg] Kingsley Latisha Other [employer] Other 12-31-2022 09:30-0400 Body height 170.18 cm Harley Ball Other [employer] Other 12-31-2022 09:30-0400 Body mass index (BMI) [Ratio] 27.03 kg/m2 Harley Ball Other [employer] Other 12-31-2022 09:30-0400 Body weight 78.29 kg Harley Ball Other [employer] Other 12-31-2022 09:30-0400 Diastolic blood pressure 69 mm[Hg] Harley Ball Other [employer] Other 12-31-2022 09:30-0400 Respiratory rate 16 /min Harley Ball Other [employer] Other 12-31-2022 09:30-0400 Systolic blood pressure 102 mm[Hg] Harley Ball Other [employer] Other 08-31-2022 08:45-0400 Body height 170.18 cm Harley Ball Other [employer] Other 08-31-2022 08:45-0400 Body mass index (BMI) [Ratio] 26.72 kg/m2 Harley Ball Other [employer] Other 08-31-2022 08:45-0400 Body weight 77.38 kg Harley Ball Other [employer] Other 08-31-2022 08:45-0400 Diastolic blood pressure 69 mm[Hg] Harley Ball Other [employer] Other 08-31-2022 08:45-0400 Respiratory rate 12 /min Harley Ball Other [employer] Other 08-31-2022 08:45-0400 Systolic blood pressure 102 mm[Hg] Harley Ball Other [employer] Other 07-02-2022 10:40-0400 Body height 170.18 cm Kingsley Latisha Other [employer] Other 07-02-2022 10:40-0400 Body mass index (BMI) [Ratio] 27.69 kg/m2 Kingsley Latisha Other [employer] Other 07-02-2022 10:40-0400 Body temperature 96.4 [degF] Kingsley Latisha Other [employer] Other 07-02-2022 10:40-0400 Body weight 80.2 kg Kingsley Latisha Other [employer] Other 07-02-2022 10:40-0400 Diastolic blood pressure 71 mm[Hg] Kingsley Latisha Other [employer] Other 07-02-2022 10:40-0400 Respiratory rate 16 /min Kingsley Latisha Other [employer] Other 07-02-2022 10:40-0400 SaO2% (BldA) [Mass fraction] 97 % Kingsley Latisha Other [employer] Other 07-02-2022 10:40-0400 Systolic blood pressure 115 mm[Hg] Kingsley Latisha Other [employer] Other 06-28-2022 09:30-0400 Body height 170.18 cm Harley Ball Other [employer] Other 06-28-2022 09:30-0400 Body mass index (BMI) [Ratio] 27.16 kg/m2 Harley Ball Other [employer] Other 06-28-2022 09:30-0400 Body weight 78.65 kg Harley Ball Other [employer] Other 06-28-2022 09:30-0400 Diastolic blood pressure 66 mm[Hg] Harley Ball Other [employer] Other 06-28-2022 09:30-0400 Respiratory rate 12 /min Harley Ball Other [employer] Other 06-28-2022 09:30-0400 Systolic blood pressure 115 mm[Hg] Harley Ball Other [employer] Other 06-26-2022 08:45-0400 Body height 170.18 cm Tondra Mapus Other [employer] Other 06-26-2022 08:45-0400 Body mass index (BMI) [Ratio] 27.75 kg/m2 Tondra Mapus Other [employer] Other 06-26-2022 08:45-0400 Body weight 80.38 kg Tondra Mapus Other [employer] Other 06-26-2022 08:45-0400 Diastolic blood pressure 61 mm[Hg] Tondra Mapus Other [employer] Other 06-26-2022 08:45-0400 Respiratory rate 16 /min Tondra Mapus Other [employer] Other 06-26-2022 08:45-0400 SaO2% (BldA) [Mass fraction] 96 % Tondra Mapus Other [employer] Other 06-26-2022 08:45-0400 Systolic blood pressure 105 mm[Hg] Tondra Mapus Other [employer] Other 03-20-2022 09:15-0500 Body height 170.18 cm Tondra Mapus Other [employer] Other 03-20-2022 09:15-0500 Body mass index (BMI) [Ratio] 26.15 kg/m2 Tondra Mapus Other [employer] Other 03-20-2022 09:15-0500 Body weight 75.75 kg Tondra Mapus Other [employer] Other 03-20-2022 09:15-0500 Diastolic blood pressure 57 mm[Hg] Tondra Mapus Other [employer] Other 03-20-2022 09:15-0500 Respiratory rate 16 /min Tondra Mapus Other [employer] Other 03-20-2022 09:15-0500 SaO2% (BldA) [Mass fraction] 98 % Tona Desireeus Other [facility] [employer] Other 03-20-2022 09:15-0500 Systolic blood pressure 117 mm[Hg] Tondra Desireeus Other [employer] Other 01-17-2022 11:45-0400 Body height 170.18 cm DO Harley Ball Work Phone: [facility] 01-17-2022 11:22-0400 Diastolic blood pressure 68 mm[Hg] DO Harley Ball Work Phone: [facility] 01-17-2022 11:22-0400 Heart rate 60 /min DO Harley Ball Work Phone: [facility] 01-17-2022 11:22-0400 Systolic blood pressure 118 mm[Hg] DO Harley Ball Work Phone: [facility] 01-17-2022 11:05-0400 Body temperature 97.4 [degF] DO Harley Ball Work Phone: [facility] 01-17-2022 11:05-0400 Respiratory rate 18 /min DO Harley Ball Work Phone: [facility] 01-17-2022 11:05-0400 SaO2% (BldA) [Mass fraction] 95 % DO Harley Ball Work Phone: [facility] 01-17-2022 06:58-0400 Body weight 77.9 kg DO Harley Ball Work Phone: [facility] 01-15-2022 15:23-0400 Inhaled oxygen flow rate 2 L/min DO Harley Ball Work Phone: [facility] 12-18-2021 09:45-0400 Body height 170.18 cm Tondra Kwong Other [facility] [employer] Other 12-18-2021 09:45-0400 Body mass index (BMI) [Ratio] 27.25 kg/m2 Tondra Mapus Other [employer] Other 12-18-2021 09:45-0400 Body weight 78.93 kg Tondra Mapus Other [employer] Other 12-18-2021 09:45-0400 Diastolic blood pressure 65 mm[Hg] Tondra Mapus Other [employer] Other 12-18-2021 09:45-0400 Respiratory rate 16 /min Tondra Mapus Other [employer] Other 12-18-2021 09:45-0400 SaO2% (BldA) [Mass fraction] 97 % Tondra Mapus Other [employer] Other 12-18-2021 09:45-0400 Systolic blood pressure 133 mm[Hg] Tondra Mapus Other [employer] Other 09-29-2021 13:13-0400 Blood Pressure Location Gagan NILL [facility] [place] 09-29-2021 13:13-0400 Diastolic blood pressure 74 mm[Hg] Gagan NILL General Surgery Luis Enrique 09-29-2021 13:13-0400 Heart rate 60 /min Gagan NILL General Surgery [place] 09-29-2021 13:13-0400 Respiratory rate 16 /min Gagan NILL General Surgery Luis Enrique 09-29-2021 13:13-0400 Systolic blood pressure 138 mm[Hg] Gagan DAVID General Surgery [place] 07-17-2021 09:45-0400 Body height 170.18 cm Tondra Mapus Other [employer] Other 07-17-2021 09:45-0400 Body mass index (BMI) [Ratio] 30.69 kg/m2 Tondra Mapus Other [employer] Other 07-17-2021 09:45-0400 Body weight 88.91 kg Tondra Mapus Other [employer] Other 07-17-2021 09:45-0400 Diastolic blood pressure 73 mm[Hg] Tondra Mapus Other [employer] Other 07-17-2021 09:45-0400 Respiratory rate 16 /min Tondra Mapus Other [employer] Other 07-17-2021 09:45-0400 SaO2% (BldA) [Mass fraction] 97 % Tondra Mapus Other [employer] Other 07-17-2021 09:45-0400 Systolic blood pressure 163 mm[Hg] Tondra Mapus Other [employer] Other 06-06-2021 10:20-0500 Body height 170.18 cm Kingsley Latisha Other [employer] Other 06-06-2021 10:20-0500 Body mass index (BMI) [Ratio] 30.29 kg/m2 Kingsley Latisha Other [employer] Other 06-06-2021 10:20-0500 Body temperature 96.1 [degF] Kingsley Latisha Other [employer] Other 06-06-2021 10:20-0500 Body weight 87.73 kg Kingsley Latisha Other [employer] Other 06-06-2021 10:20-0500 Diastolic blood pressure 70 mm[Hg] Kingsley Latisha Other [employer] Other 06-06-2021 10:20-0500 Respiratory rate 18 /min Kingsley Latisha Other [employer] Other 06-06-2021 10:20-0500 SaO2% (BldA) [Mass fraction] 97 % Kingsley Latisha Other [employer] Other 06-06-2021 10:20-0500 Systolic blood pressure 160 mm[Hg] Kingsley Latisha Other [employer] Other 04-10-2021 09:15-0500 Body height 170.18 cm Tondra Mapus Other [employer] Other 04-10-2021 09:15-0500 Body mass index (BMI) [Ratio] 30.99 kg/m2 Tondra Mapus Other [employer] Other 04-10-2021 09:15-0500 Body weight 89.77 kg Tondra Mapus Other [employer] Other 04-10-2021 09:15-0500 Diastolic blood pressure 64 mm[Hg] Tondra Mapus Other [employer] Other 04-10-2021 09:15-0500 Respiratory rate 18 /min Tondra Desireeus Other [employer] Other 04-10-2021 09:15-0500 SaO2% (BldA) [Mass fraction] 98 % Tondra Mapus Other [employer] Other 04-10-2021 09:15-0500 Systolic blood pressure 136 mm[Hg] Tondra Mapus Other [employer] Other 02-14-2021 10:00-0500 Body height 170.18 cm Kingsley Latisha Other [employer] Other 02-14-2021 10:00-0500 Body mass index (BMI) [Ratio] 30.98 kg/m2 Kingsley Latisha Other [employer] Other 02-14-2021 10:00-0500 Body temperature 96 [degF] Kingsley Latisha Other [employer] Other 02-14-2021 10:00-0500 Body weight 89.72 kg Kingsley Latisha Other [employer] Other 02-14-2021 10:00-0500 Diastolic blood pressure 60 mm[Hg] Kingsley Latisha Other [employer] Other 02-14-2021 10:00-0500 Respiratory rate 16 /min Kingsley Latisha Other [employer] Other 02-14-2021 10:00-0500 SaO2% (BldA) [Mass fraction] 97 % Kingsley Latisha Other [employer] Other 02-14-2021 10:00-0500 Systolic blood pressure 130 mm[Hg] Kingsley Latisha Other [employer] Other 01-03-2021 10:15-0400 Body height 170.18 cm Tondra Mapus Other [employer] Other 01-03-2021 10:15-0400 Body mass index (BMI) [Ratio] 31.01 kg/m2 Tondra Mapus Other [employer] Other 01-03-2021 10:15-0400 Body weight 89.81 kg Tondra Mapus Other [employer] Other 01-03-2021 10:15-0400 Diastolic blood pressure 67 mm[Hg] Tondra Mapus Other [employer] Other 01-03-2021 10:15-0400 Respiratory rate 16 /min Tondra Mapus Other [employer] Other 01-03-2021 10:15-0400 SaO2% (BldA) [Mass fraction] 99 % Tondra Mapus Other [employer] Other 01-03-2021 10:15-0400 Systolic blood pressure 151 mm[Hg] Tondra Mapus Other [employer] Other Encounters Encounter Date Encounter Type Care Provider Facility Start: 09-24-2024 End: 09-24-2024 Ashley Tavera DPM Work Phone: [facility] Start: 09-24-2024 End: 09-24-2024 Bamboo flowsheet Kenneth Tavera DPM Work Phone: [facility] Start: 09-24-2024 End: 09-24-2024 Patient encounter procedure Kenneth Tavera DPM Work Phone: [facility] Comment on above: 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 Start: 08-28-2024 End: 08-28-2024 ambulatory OBI [facility] Start: 08-28-2024 End: 08-28-2024 ambulatory OBI [facility] Start: 08-27-2024 End: 08-27-2024 ambulatory Harley Ball Facility:[facility] Start: 08-27-2024 Non-patient / Non-visit [facility] Work Phone: Start: 08-25-2024 End: 08-25-2024 ambulatory [facility] Work Phone: Start: 08-25-2024 End: 08-25-2024 Patient encounter procedure [facility] Work Phone: Start: 08-21-2024 Non-patient / Non-visit [facility] Work Phone: Start: 08-20-2024 End: 08-20-2024 ambulatory AB [facility] Start: 08-14-2024 Evaluation and management of inpatient [facility] Start: 08-13-2024 Evaluation and management of inpatient [facility] Start: 08-13-2024 End: 08-14-2024 Evaluation and management of inpatient SP SANCHEZ [facility] Start: 08-13-2024 Non-patient / [facility] Work Phone: Start: 08-04-2024 End: 08-04-2024 ambulatory OBI JD [facility] Start: 08-04-2024 End: 08-04-2024 ambulatory Jason Laura LARKIN Facility:[facility] Start: 08-04-2024 End: 08-04-2024 Patient encounter procedure Jason LARKIN [facility] Start: 08-03-2024 End: 08-03-2024 ambulatory Jason Laura CHAYA Facility:[facility] Start: 08-03-2024 End: 08-03-2024 Lab Drop off Jason R LARKIN [facility] Start: 08-03-2024 End: 08-03-2024 ambulatory HARLEY BALL Facility: [facility] Start: 08-03-2024 End: 08-03-2024 ambulatory Harley Ball DO Work Phone: [facility] Work Phone: Start: 08-03-2024 End: 08-03-2024 Patient encounter procedure Harley Ball DO Work Phone: [facility] Work Phone: Start: 07-27-2024 End: 07-27-2024 ambulatory Harley Ball DO Work Phone: [facility] Work Phone: Start: 07-27-2024 End: 07-27-2024 Patient encounter procedure Harley Ball DO Work Phone: [facility] Work Phone: Start: 07-17-2024 ambulatory EMEKA NICHOLAS [facility] Start: 07-16-2024 Non-patient / Non-visit Benjam in Ball DO Work Phone: [facility] Work Phone: Start: 07-15-2024 ambulatory Jason LARKIN Facility : [place] Start: 07-15-2024 Non-patient / Non-visit Benjam in Ball DO Work Phone: [facility] Work Phone: Start: 07-14-2024 End: 07-14-2024 ambulatory Harley Ball DO Work Phone: [facility] Work Phone: Start: 07-14-2024 End: 07-14-2024 Patient encounter procedure Harley Ball DO Work Phone: [facility] Work Phone: Start: 07-07-2024 End: 07-07-2024 ambulatory Kingsley Latisha Facility:[facility] Start: 07-07-2024 Non-patient / Non-visit Benjam in Ball DO Work Phone: [facility] Work Phone: Start: 06-22-2024 ambulatory KEVIN ARTEAGA [facility] Start: 06-18-2024 End: 06-18-2024 ambulatory KENNETH TAVERA Not Available Start: 06-10-2024 Non-patient / Non-visit Benjam in Ball DO Work Phone: [facility] Work Phone: Start: 05-28-2024 End: 05-28-2024 Departed Referred Harley Ball DO Work Phone: [facility] Work Phone: Start: 05-28-2024 End: 05-28-2024 Patient encounter procedure Harley Cherie DO Work Phone: [facility] Work Phone: Start: 05-28-2024 End: 05-28-2024 ambulatory Harley Crespo DO Work Phone: [facility] Work Phone: Start: 05-26-2024 End: 05-26-2024 ambulatory [facility] Start: 05-18-2024 ambulatory [facility] Start: 05-05-2024 Non-patient / Non-visit Benjam in Cherie DO Work Phone: [facility] Work Phone: Start: 04-30-2024 End: 04-30-2024 ambulatory [facility] Work Phone: Start: 04-30-2024 End: 04-30-2024 Patient encounter procedure [facility] Work Phone: Start: 04-21-2024 ambulatory [facility] Start: 04-16-2024 End: 04-16-2024 Patient encounter procedure [facility] Work Phone: Start: 04-02-2024 End: 04-02-2024 Bamboo [...] polyneuropathy, without long-term current use of insulin ([facility]) (Primary Dx); Pain due to onychomycosis of toenails of both feet Start: 04-02-2024 End: 04-02-2024 ambulatory KENNETH TAVERA Not Available Start: 03-26-2024 Encounter for preprocedural cardiovascular examination [facility] Start: 03-26-2024 ambulatory [facility] Start: 03-10-2024 End: 03-10-2024 ambulatory [facility] Start: 03-06-2024 ambulatory [facility] Start: 02-24-2024 End: 02-24-2024 Patient encounter procedure [facility] Work Phone: Start: 02-20-2024 ambulatory [facility] Start: 02-18-2024 Non-patient / Non-visit [facility] Work Phone: Start: 02-18-2024 Non-patient / Non-visit [facility] Work Phone: Start: 02-13-2024 [facility] Start: 02-13-2024 Evaluation and management of inpatient BONAVENTURE [facility] Start: 02-13-2024 Evaluation and management of inpatient BONAVENTURE [facility] Start: 02-13-2024 End: 02-14-2024 Evaluation and management of inpatient ARAMIS SELLERS [facility] Start: 02-12-2024 Non-patient / Non-visit [facility] Work Phone: Start: 02-12-2024 Non-patient / Non-visit [facility] Work Phone: Start: 01-23-2024 End: 01-23-2024 Ashley Tavera DPM Work Phone: [facility] Start: 01-23-2024 End: 01-23-2024 Ashley Tavera DPM Work Phone: [facility] Start: 01-23-2024 End: 01-23-2024 Office outpatient visit 10 minutes Kenneth Tavera DPM Work Phone: [facility] Comment on above: Xerosis cutis (Prima ry Dx); Diabetes 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, without long-term current use of insulin ([facility]); Pain due to onychomycosis of toenails of both feet Start: 01-23-2024 End: 01-23-2024 ambulatory KENNETH TAVERA Not Available Start: 01-23-2024 End: 01-23-2024 ambulatory [facility] Work Phone: Start: 01-23-2024 End: 01-23-2024 Patient encounter procedure [facility] Work Phone: Start: 01-21-2024 ambulatory [facility] Start: 01-16-2024 ambulatory [facility] Start: 01-10-2024 ambulatory [facility] Start: 01-09-2024 ambulatory [facility] Start: 01-07-2024 End: 01-07-2024 ambulatory [facility] Work Phone: Start: 01-07-2024 End: 01-07-2024 Patient encounter procedure [facility] Pe[facility]uelas Work Phone: Start: 12-30-2023 Non-patient / Non-visit [facility] Work Phone: Start: 12-12-2023 End: 12-12-2023 ambulatory [facility] Work Phone: Start: 12-12-2023 End: 12-12-2023 Patient encounter procedure [facility] Work Phone: Start: 11-28-2023 ambulatory [facility] Start: 11-12-2023 End: 11-12-2023 ambulatory KEVIN [facility] Start: 11-07-2023 End: 11-07-2023 ambulatory KENNETH Mota LIANG Not Available Start: 10-17-2023 End: 10-17-2023 ambulatory [facility] Work Phone: Start: 10-17-2023 End: 10-17-2023 Patient encounter procedure [facility] Work Phone: Start: 10-07-2023 End: 10-07-2023 [facility] Start: 10-02-2023 ambulatory [facility] Start: 09-27-2023 Evaluation and management of inpatient LUISITO SPEARZABRINA [facility] Start: 09-27-2023 Evaluation and management of inpatient [facility] Start: 09-26-2023 Non-patient / Non-visit [facility] Work Phone: Start: 09-26-2023 Evaluation and management of inpatient DEJUAN [facility] Start: 09-26-2023 End: 09-28-2023 Evaluation and management of inpatient HEIDY DEE [facility] Start: 09-26-2023 Non-patient / Non-visit [facility] Work Phone: Start: 09-25-2023 ambulatory EMEKA NICHOLAS [facility] Start: 09-24-2023 ambulatory [facility] Start: 08-27-2023 Non-patient / Non-visit [facility] Work Phone: Start: 08-12-2023 End: 08-12-2023 ambulatory [facility] Work Phone: Start: 08-12-2023 End: 08-12-2023 Patient encounter procedure [facility] Work Phone: Start: 07-02-2023 End: 07-02-2023 ambulatory [facility] Work Phone: Start: 07-02-2023 End: 07-02-2023 Patient encounter procedure [facility] Work Phone: Start: 06-24-2023 Non-patient / Non-visit [facility] Work Phone: Start: 06-18-2023 End: 06-18-2023 ambulatory [facility] Work Phone: Start: 06-18-2023 End: 06-18-2023 Patient encounter procedure [facility] Work Phone: Start: 06-13-2023 Non-patient / Non-visit [facility] Work Phone: Start: 05-03-2023 End: 05-03-2023 Patient encounter procedure DO Harley Cherie Work Phone: [facility]- Start: 04-30-2023 End: 04-30-2023 ambulatory Kingsley Latisha Other [employer] Other Start: 04-30-2023 Telephone encounter Kingsley Latisha [facility] Start: 04-23-2023 End: 04-23-2023 ambulatory Tondra Mapus Other [employer] Other Start: 04-23-2023 Telephone encounter Tondra Desireeus [facility] Start: 03-12-2023 (DM) Diabetes Tondra Varghese [facility] Start: 03-12-2023 End: 03-12-2023 ambulatory DO Harley Crespo Work Phone: [employer] Other Start: 03-12-2023 End: 03-12-2023 Discharged Recurring DO Harley Ball Work Phone: [facility] Work Phone: Start: 03-12-2023 End: 03-12-2023 Patient encounter procedure DO Harley Crespo Work Phone: [facility] Work Phone: Start: 02-12-2023 End: 02-12-2023 ambulatory Harley Crespo Other [employer] Other Start: 02-12-2023 Telephone encounter Harley HERRMANN [facility] Start: 02-07-2023 End: 02-07-2023 ambulatory Harley Crespo Other [employer] Other Start: 02-07-2023 Telephone encounter Harley HERRMANN [facility] Start: 02-06-2023 End: 02-06-2023 ambulatory John Pauldrnakul Kwong Other [employer] Other Start: 02-06-2023 Telephone encounter Tondra Mapus [facility] Start: 01-29-2023 End: 01-29-2023 ambulatory Harley Crespo Other [employer] Other Start: 01-29-2023 Telephone encounter Harley HERRMANN [facility] Start: 01-17-2023 End: 01-17-2023 ambulatory Tondra Mapus Other [employer] Other Start: 01-17-2023 Telephone encounter Tondra Mapus [facility] Start: 01-07-2023 End: 01-07-2023 ambulatory Harley Crespo Other [employer] Other Start: 01-07-2023 Office outpatient vi sit 25 minutes Kingsley Latisha [facility] Start: 01-07-2023 Telephone encounter Harley HERRMANN [facility] Start: 01-04-2023 End: 01-04-2023 ambulatory Kingsley Latisha Other [employer] Other Start: 01-04-2023 Telephone encounter Kingsley Latisha [facility] Start: 01-01-2023 End: 01-01-2023 ambulatory Kingsley Latisha Other [employer] Other Start: 01-01-2023 Telephone encounter Kingsley Latisha [facility] Start: 12-31-2022 End: 12-31-2022 ambulatory Harley Crespo Other [employer] Other Start: 12-31-2022 Office outpatient vi sit 25 minutes Harley Crespo [facility] Start: 12-31-2022 Telephone encounter Harley Crespo [facility] Start: 12-13-2022 End: 12-13-2022 ambulatory Denita Chairez Other [employer] Other Start: 12-13-2022 Nursing evaluation o f patient and report Denitaclarita Chairez [facility] Start: 11-23-2022 End: 11-23-2022 ambulatory Tondra Mapus Other [employer] Other Start: 11-23-2022 Telephone encounter Tondra Mapus [facility] Start: 10-12-2022 End: 10-12-2022 ambulatory Tondra Mapus Other [employer] Other Start: 10-12-2022 Telephone encounter Tondra Mapus [facility] Start: 10-09-2022 End: 10-09-2022 ambulatory Harley Crespo Other [employer] Other Start: 10-09-2022 Telephone encounter Harley HERRMANN [facility] Start: 10-01-2022 End: 10-01-2022 ambulatory Harley Crespo Other [employer] Other Start: 10-01-2022 Telephone encounter Harley HERRMANN [facility] Start: 09-27-2022 End: 09-27-2022 ambulatory Kingsley Latisha Other [employer] Other Start: 09-27-2022 Telephone encounter Kingsley Altisha [facility] Start: 09-26-2022 End: 09-26-2022 ambulatory Harley Crespo Other [employer] Other Start: 09-26-2022 Telephone encounter Harley Crespo [facility] Start: 09-19-2022 End: 09-19-2022 ambulatory Kingsley Latisha Other [employer] Other Start: 09-19-2022 Telephone encounter Kingsley Latisha [facility] Start: 09-12-2022 End: 09-12-2022 ambulatory Harley Crespo Other [employer] Other Start: 09-12-2022 Telephone encounter Harley Crespo MONTEZ [facility] Start: 09-03-2022 End: 09-03-2022 ambulatory Harley Crespo Other [employer] Other Start: 09-03-2022 Telephone encounter Harley Crespo MONTEZ [facility] Start: 08-31-2022 End: 08-31-2022 ambulatory Harley Crespo Other [employer] Other Start: 08-31-2022 Office outpatient vi sit 25 minutes Harley Crespo [facility] Start: 08-10-2022 End: 08-10-2022 ambulatory Harley Crespo Other [employer] Other Start: 08-10-2022 Telephone encounter Harley Crespo MONTE[facility] Start: 08-09-2022 End: 08-10-[address] HARLEY CRESPO [facility] [employer] Other Start: 08-09-2022 Telephone encounter Kingsley Latisha [facility] Start: 07-02-2022 End: 07-02-2022 ambulatory Kingsley Latisha Other [employer] Other Start: 07-02-2022 Office outpatient vi sit 25 minutes Kingsley Latisha [facility] Start: 06-28-2022 End: 06-28-2022 ambulatory Harley Crespo Other [employer] Other Start: 06-28-2022 Patient encounter procedure Harley Crespo [facility] Start: 06-26-2022 (DM) Diabetes Tondra Mapus [facility] Start: 06-26-2022 End: 06-26-2022 ambulatory Tondra Mapus Other [employer] Other Start: 06-25-2022 End: 06-26-2022 ambulatory KINGSLEY LATISHA Facility:[facility] Start: 06-18-2022 End: 06-19-2022 ambulatory TONDRA MAPUS Facility:[facility] Start: 06-05-2022 End: 06-06-[address] HARLEY CRESPO Facility:[facility] Start: 05-26-2022 End: 05-26-2022 ambulatory Harley Crespo Other [employer] Other Start: 05-26-2022 Telephone encounter Harley Crespo [facility] Start: 05-25-2022 End: 05-25-2022 ambulatory Tondra Mapus Other [employer] Other Start: 05-25-2022 Telephone encounter Tondra Mapus [facility] Start: 05-03-2022 End: 05-04-[address] PINKY BISHOP Facility:[facility] Start: 04-18-2022 End: 04-19-[address] PINKY BISHOP Facility:[facility] Start: 03-22-2022 End: 03-23-[address] HIGINIO FLANAGAN Facility:[facility] Start: 03-20-2022 (DM) Diabetes Tondra Mapus [facility] Start: 03-20-2022 End: 03-20-2022 ambulatory Tondra Mapus Other [employer] Other Start: 03-12-2022 End: 03-13-2022 Evaluation and management of inpatient DR PARUL CHU Facility:[facility] Start: 03-09-2022 End: 03-10-[address] SHANNON LANDIS Facility:[facility] Start: 03-02-2022 End: 03-03-[address] HARLEY CRESPO Facility:[facility] Start: 02-19-2022 End: 02-19-2022 ambulatory Tondra Mapus Other [employer] Other Start: 02-19-2022 Telephone encounter Tondra Mapus [facility] Start: 02-08-2022 End: 02-08-2022 ambulatory Tondra Mapus Other [employer] Other Start: 02-08-2022 Telephone encounter Tondra Mapus [facility] Start: 01-15-2022 End: 01-17-2022 Evaluation and management of inpatient DO Harley Crespo Work Phone: [facility] [place] [facility] Start: 01-15-2022 End: 01-15-[address] HARLEY CRESPO Facility:[facility] Start: 12-18-2021 Registered Recurring DO Zamudio in Ball Work Phone: [facility] Start: 12-18-2021 (DM) Diabetes Tondra Mapus [facility] Start: 12-18-2021 End: 12-18-2021 ambulatory Tondra Mapus Other [employer] Other Start: 12-08-2021 End: 12-09-[address] HARLEY CRESPO Facility:[facility] Start: 11-30-2021 End: 12-01-2021 ambulatory KINGSLEY GOOD Facility:[facility] Start: 11-24-2021 End: 11-25-[address] HARLEY CRESPO Facility:[facility] Start: 11-16-2021 End: 11-16-2021 ambulatory Tondra Mapus Other [employer] Other Start: 11-16-2021 Telephone encounter Tondra Mapus [facility] Start: 2021 End: 2021 ambulatory Tondra Mapus Other [employer] Other Start: 2021 Telephone encounter Tondra Mapus [facility] Start: 10-31-2021 End: 10-31-2021 ambulatory Tondra Mapus Other [employer] Other Start: 10-31-2021 Telephone encounter Tondra Mapus [facility] Start: 10-27-2021 End: 10-27-2021 ambulatory [...] 07-24-2021 End: 07-24-2021 ambulatory Tondra Mapus Other [facility] Other Start: 07-24-2021 Telephone encounter Tondra Mapus [facility] Start: 07-17-2021 (DM) Diabetes Tondra Mapus [facility] Start: 07-17-2021 End: 07-17-2021 ambulatory Tondra Mapus Other [facility] Other Start: 06-19-2021 End: 06-19-2021 ambulatory Shannon Escobar Other [facility] Other Start: 06-19-2021 Telephone encounter Shannon Escobar [facility] Start: 06-06-2021 End: 06-06-2021 ambulatory Kingsley Latisha Other [facility] Other Start: 06-06-2021 Office outpatient vi sit 25 minutes Kingsley Latisha [facility] Start: 05-22-2021 End: 05-22-2021 ambulatory Tondra Mapus Other [facility] Other Start: 05-22-2021 Telephone encounter Tondra Mapus [facility] Start: 05-16-2021 End: 05-16-2021 ambulatory Tondra Mapus Other [facility] Other Start: 05-16-2021 Telephone encounter Tondra Mapus [facility] Start: 04-10-2021 (DM) Diabetes Tondra Mapus [facility] Start: 04-10-2021 End: 04-10-2021 ambulatory Tondra Mapus Other [facility] Other Start: 04-10-2021 Telephone encounter Tondra Mapus [facility] Start: 02-14-2021 End: 02-14-2021 ambulatory Kingsley Latisha Other [facility] Other Start: 02-14-2021 Patient encounter procedure Kingsley Latisha [facility] Start: 02-14-2021 Telephone encounter Tondra Mapus [facility] Start: 01-03-2021 (DM) Diabetes Tondra Mapus [facility] Start: 10-14-2018 End: 10-15-2018 Patient encounter procedure EHAB A ELTAHAWY Facility:[facility] Start: 02-24-2018 End: 02-25-2018 Evaluation and management of inpatient AB Nakul BISHOP Facility:[facility] Procedures Date Procedure Procedure Detail Performing [...] artery disease Jason LARKIN Pacemaker care management Valdez dupontkayden LARKIN Percutaneous coronary intervention Gagan DAVID Comment on above: stent/vein graft Plan of Treatment Date Care Activity Detail Author Start: 07-11-2031 Screening for malign ant neoplasm of colon [facility] Start: 09-24-2024 End: 09-24-2024 Patient encounter procedure 09/24/2024 8:40 AM EDT Office Visit [facility] [address] [address] Kenneth Tavera, DPTracey [address] [address] Diabetes 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, without long-term current use of insulin (HCC) (Primary Dx); Pain due to onychomycosis of toenails of both feet; Xerosis cutis [facility] Comment on above: 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, without long-term current use of insulin (HCC) (Primary Dx); Pain due to onychomycosis of toenails of both feet; Xerosis cutis Start: 08-27-[address] [facility] Start: 07-27-2024 Patient referral [facility] Work Phone: Start: 07-14-2024 Patient referral [facility] Work Phone: Start: 07-07-[address] [facility] Start: 06-11-2024 End: 06-11-2024 Patient encounter procedure 06/11/2024 11:50 AM EDT Office Visit [facility] [address] [facility] [address] [place] [address] Kenneth Tavera DPM [address] [address] [facility] Start: 04-02-2024 End: 04-02-2024 Patient encounter procedure [facility] Comment on above: 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, without long-term current use of insulin (CMS/HCC) (Primary Dx); Pain due to onychomycosis of toenails of both feet Start: 01-23-2024 End: 01-23-2024 Patient encounter procedure 01/23/2024 11:30 AM EDT Office Visit [facility] [address] [facility] [address] [place] [id number] Kenneth Tavera DPM [address] [address] Diabetes mellitus due to underlying condition with [...] feet Start: 10-26-2023 DIABETES SCREEN DIABETES SCREEN [facility] Start: 10-17-2023 Patient referral [facility] Work Phone: Start: 08-16-2023 Screening for malign ant neoplasm of colon FIT-DNA [facility] Start: 01-17-2022 [facility] Start: 01-17-2022 Radionuclide myocard ial perfusion stress study NM rachel perf SPECT rest & str [facility] Start: 01-17-2022 Referral to cardiac rehabilitation program [facility] Start: 01-16-2022 Hospital admission [facility] Start: 01-15-2022 Hospital admission [facility] Start: 11-30-2021 Influenza vaccination INFLUENZA (#1) [facility] Start: 10-24-2021 End: 12-24-2021 CBC W Auto Differential panel - Blood CBC + DIFF Lab Routine Monoclonal gammopathy Expected: 10/24/2021, Expires: 12/24/2021 [facility] Work Phone: Comment on above: Expected: 10/24/2021 , Expires: 12/24/2021 Start: 04-25-2021 Adult depression screening assessment DEPRESSION SCREENING [facility] Start: 04-01-2021 ADVANCE DIRECTIVE DISCUSSION ADVANCE DIRECTIVE DISCUSSION [facility] Start: 11-21-2020 COVID-19 VACCINE (3 - Booster for Pfizer series) COVID-19 VACCINE (3 - Booster for Pfizer series) [facility] Start: 11-07-2001 SHINGRIX VACCINE (1 of 2) SHINGRIX VACCINE (1 of 2) [facility] Start: 11-07-1996 COLOGUARD (FIT-DNA) COLOGUARD (FIT-D NA) [facility] Start: 11-07-1996 Colonoscopy COLONOSCOPY [facility] Start: 11-07-1996 COLORECTAL CANCER SCREENING COLORECTAL CANCER SCREENING [facility] Start: 11-07-[address] [facility] Start: 11-07-1996 FECAL OCCULT BLOOD FECAL OCCULT BLOO D [facility] Start: 11-07-1996 SIGMOIDOSCOPY SIGMOIDOSCOPY [facility] Start: 11-07-1986 LIPID SCREEN LIPID SCREEN [facility] Start: 11-07-1970 Urine microalbumin profile DTAP,TDAP,TD (1 - Tdap) [facility] Start: 11-07-1969 HEPATITIS C SCREENING HEPATITIS C SC APURVA [facility] Start: 1950 ABDOMINAL AORTIC ANEURYSM SCREENING ABDOMINAL AORTIC ANEURYSM SCREENING [facility] Start: 1950 Screening for malign ant neoplasm of colon [facility] Comprehensive metabo lic 1999 panel - Serum or Plasma [facility] Comprehensive metabo lic 1999 panel - Serum or Plasma [facility] CT Abdomen and Pelvi s WO contrast [facility] CT Abdomen and Pelvi s WO contrast [facility] Patient Education [facility] Work Phone: Patient referral [facility] Work Phone: Renal function 1999 panel - Serum or Plasma [facility] Renal function 1999 panel - Serum or Plasma [facility] Renal function 1999 panel - Serum or Plasma [facility] Urine culture [facility] Immunizations Immunization Date Immunization Notes Care Provider Poli patel 12-12-2023 influenza virus vaccine, unspecified formulation Jason CHAYA [facility] 12-12-2023 influenza, high dose seasonal, preservative-free [facility] 12-13-2022 influenza, high dose seasonal, preservative-free Denita Chairez Other [facility] [employer] Other 12-13-2022 influenza virus vaccine, unspecified formulation DO Harley Crespo Work Phone: [facility] 12-15-2021 influenza virus vaccine, unspecified formulation DO Harley Crespo Work Phone: [facility] 12-15-2021 influenza, high dose seasonal, preservative-free Harley Crespo Other [facility] [employer] Other 02-21-2021 COVID-19 mRNA, Comirnaty (Pfizer) DO Harley Crespo Work Phone: [facility] 06-21-2020 COVID-19 Vaccine Pfi zer - Documentation Purposes Only Tondra Mapus Other [facility] 05-30-2020 COVID-19 Vaccine Pfi zer - Documentation Purposes Only Tondra Mapus Other [facility] 01-17-2018 influenza virus vaccine, unspecified formulation Jason LARKIN [facility] 01-17-2018 pneumococcal polysaccharide vaccine, 23 valent Abdon Walker MD Work Phone: [facility] 01-17-2018 Seasonal trivalent influenza vaccine, adjuvanted, preservative free Abdon Walker MD Work Phone: [facility] 01-16-2017 influenza virus vaccine, unspecified formulation Jason LARKIN [facility] 01-16-2017 influenza, high dose seasonal, preservative-free Abdon Walker MD Work Phone: [facility] 11-30-2016 influenza virus vaccine, unspecified formulation Jason LARKIN [facility] 11-30-2016 influenza, injectabl e, quadrivalent, preservative free Abdon Walker MD Work Phone: [facility] 11-14-2016 pneumococcal conjuga te vaccine, 13 valent Abdon Walker MD Work Phone: [facility] 04-02-2016 pneumococcal polysaccharide vaccine, 23 valent Tondra Mapus Other [facility] 01-23-2012 influenza virus vaccine, unspecified formulation Jason LARKIN [facility] 01-23-2012 influenza, seasonal, injectable Abdon Walker MD Work Phone: [facility] 12-13-2010 influenza virus vaccine, unspecified formulation Jason LARKIN [facility] 12-13-2010 influenza, seasonal, injectable Abdon Walker MD Work Phone: [facility] 01-27-2009 novel [id number], preservative-free, injectable Abdon Walker MD Work Phone: [facility] 01-19-2008 influenza virus vaccine, whole virus Abdon Walker MD Work Phone: [facility] 01-19-2008 influenza, whole Jason EZ HERNANDES [facility] Payers Date Payer Category Payer Self-pay [id number] 2021 Unknown [id number] 2021 Private Health Insurance [employer] [id number] 2019 Unknown MMO MMO MEDICARE SUPPLEMENT [id number] 2019-Present [phone] [address] [place] [address] Indemnity [id number] 2016 Medicare MEDICARE MEDICAR E A AND B [id number] 2016-Present [phone] [address] [address] [place] [address] Medicare [id number]. [id number] 2016 Medicare [id number]. [id number]. [id number] 1959 Medicare [id number] 1959 Unknown [id number] 2.16.840.1.570817.19 1951 Unknown [id number] 2.16.840.1.089795.3.579.2. 647 1951 Unknown [id number] 2.16.840.1.693835.3.579.2. 647 1951 Unknown [id number] 2.16.840.1.166518.3.579.2. 593 1951 Unknown [id number] 2.16.840.1.741702.3.579.2. 593 1951 Unknown [id number] 2.16.840.1.158339.3.579.2. 593 1951 Unknown [id number] 2.16.840.1.777777.3.579.2. 593 1951 Unknown [id number] 2.16.840.1.448037.3.579.2. 593 1951 Unknown [id number] 2.16.840.1.320368.3.579.2. 593 1951 Unknown [id number] 2.16.840.1.954545.3.579.2. 593 1951 Unknown [id number] 2.16.840.1.499726.3.579.2. 593 1951 Unknown [id number] 2.16.840.1.743776.3.579.2. 593 1951 Unknown [id number] 2.16.840.1.803252.3.579.2. 593 1951 Unknown [id number] 2.16.840.1.804887.3.579.2. 593 1951 Unknown [id number] 2.16.840.1.077349.3.579.2. 593 1951 Unknown [id number] 2.16.840.1.541451.3.579.2. 593 1951 Unknown [id number] 2.16.840.1.391768.3.579.2. 593 1951 Unknown [id number] 2.16.840.1.780327.3.579.2. 593 1951 Unknown [id number] 2.16.840.1.845954.3.579.2. 593 1951 Unknown [id number] 2.16.840.1.798355.3.579.2. 593 1951 Unknown [id number] 2.16.840.1.035289.3.579.2. 593 1951 Unknown [id number] 2.16.840.1.045753.3.579.2. 727 1951 Unknown [id number] 2.16.840.1.045208.3.579.2. 727 1951 Unknown [id number] 2.16.840.1.051427.3.579.2. 727 1951 Unknown [id number] 2.16.840.1.931217.3.579.2. 1259 1951 Unknown [id number] 2.16.840.1.570282.3.579.2. 1259 1951 Unknown [id number] 2.16.840.1.623631.3.579.2. 1259 1951 Unknown [id number] 2.16.840.1.626322.3.579.2. 1259 1951 Unknown [id number] 2.16.840.1.892046.3.579.2. 1259 Unknown [id number] Unknown HCAP/HFA/FAP Active [id number] Unknown HCAP/HFA/FAP Active [id number] Unknown [id number] 2.16.840.1.585409.3.579.2. 531 Unknown [id number] 2.16.840.1.469531.3.579.2. 531 Unknown [id number] 2.16.840.1.182758.3.579.2. 531 Unknown [id number] 2.16.840.1.678591.3.579.2. 531 Social History Date Type Detail Facility Unknown if ever smoked [facility] Other Start: 11-07-2023 End: 06-18-2024 Sex Assigned At [facility] [employer] Other Start: 09-29-2021 End: 05-28-2024 Tobacco smoking status Ex-smoker (finding) [facility] [place] Tobacco smoking status Never [facility] [place] Start: 07-23-2018 End: 10-12-2022 Tobacco use and exposure Smokeless tobacco non-user [facility] Start: 10-25-2020 Alcohol intake Ex-drinker (finding) [facility] Start: 1950 Sex Assigned At Not on file [facility] Start: 1950 Sex Assigned At Male [facility] Start: 10-12-2022 [facility] Start: 11-07-2023 End: 09-24-2024 Alcoholic beverage intake Defer [facility] Start: 11-07-2023 End: 06-18-2024 History of Social function [facility] Start: 04-30-2024 End: 08-28-2024 Sex Male (finding) [facility] Sexual Orientation [facility] Medical Equipment Procedure Code Equipment [...] 2. 0 X 15 FDA Start: 04-13-2021 Pen Needle, Diab etic (Bd Ultra-Fine Latoya [...] Assessment Result Facility 08-04-2024 Functional Status N/A [facility] 01-17-2022 Functional status Patient at Baseline [facility] Work Phone: 09-29-2021 Functional Status N/A [facility] Saha ranjeet Dorsey Mental Status Date Assessment Result Facility 01-17-2022 Cognitive function Cognitive Sta tus Patient at Baseline [facility] Work Phone: Clinical Notes 01-03-2021 to 09-24-2024 Kenneth Tavera DPM - 09/24/2024 8:40 AM EDT Note Date & Type Note Facility 09-24-2024 History of Present illness Narrative Patient: Lani Lizama : 1950 PCP: Harley Crespo, DO SUBJECTIVE This is a 73 y.o. [...] Date Diabetic retinopathy (HCC) HTN (hypertension) Hypercholesteremia HI (myocardial infarction) (HCC) 2021 Two total: 02/20, [...] in the morning., Disp: , Rfl: HYDROcodone-acetaminophen (Sh[place]) 5-325 MG tablet, TAKE 1 TABLET BY [...] Strain: Low Risk (08/13/2024) Received from [facility] Overall Financial Resource Strain (CARDIA) Difficulty of Paying Living Expenses: Not hard at all Food Insecurity: No Food Insecurity (08/13/2024) Received from [facility] Hunger Vital Sign Within the past 12 months, you worried that your food would run out before you got the money to buy more.: Never true Ran Out of Food in the Last Year: Not on file Transportation Needs: No Transportation Needs (08/13/2024) Received from [facility] Transportation In the past 12 months, has lack of transportation kept you from medical appointments or from getting medications?: No Lack of Transportation (Non-Medical): Not on file Physical Activity: Not on file Stress: Not on file Social Connections: Not on file Intimate Partner Violence: Unknown (08/13/2024) Received from [facility] Humiliation, Afraid, Rape, and Kick questionnaire Fear of Current or Ex-Partner: No Emotionally Abused: Not on file Physically Abused: Not on file Sexually Abused: Not on file Housing Stability: Low Risk (08/13/2024) Received from [facility] Housing Stability Vital Sign In the last 12 months, was there a time when you were not able to pay the mortgage or rent on time?: No Number of Times Moved in the Last Year: Not on file At any time in the past 12 months, were you homeless or living in a skilled nursing (including now)?: No ROS: General: denies fever, [...] and negative PT pedal pulses NEURO: 5.07 Potter Chun monofilament test diminished to digits and [...] Kenneth Tavera DPM documented in this encounter [facility] 08-28-2024 Note [facility] Department of Urology Clinic CONSULTATION Reason for [...] significant pain. He was therefore referred to [place] [facility] where he underwent a cystoscopy with [...] Needs: No Tr (more content not included)... [facility] 08-20-2024 Note [facility] Cardiology Clinic Note Chief Complaint: Patient here for follow up [facility] for an HI and bladder surgery clearance. Patient states he [...] mildly elevated troponin. Patient was transferred to [facility] for further evaluation and treatment. Of [...] , Rfl: isosor (more content not included)... [facility] 08-14-2024 Note Hospital Medicine Discharge [...] mildly elevated troponin. Patient was transferred to [facility] for further evaluation and treatment. Of [...] Hospital 08/28/2024 8:30 AM Last Mcmanus MD [facility] URO Second Fl Your medication list START [...] Medications These medications were sent to [facility] [address] [place] [address] [facility] [place] [address], [facility] [address] amLODIPine 5 mg tablet Lani has No Known Allergies. Disposition: Home or Self Care () Discharge Condition: Stable Code Status: Prior Diagnostic Results Hematology: Results from last 7 days Lab Units 08/13/24 1421 WBC AUTO 10*3/uL 7.62 HEMOGLOBIN g/dL 13.1 HEMATOCRIT % 39.8 MCV fL 89.0 PLATELETS AUTO 10*3/uL 201 Chemistry: Results from last 7 days Lab Units (more content not included)... [facility] 08-14-2024 Note Adult Nutrition Asse [...] of Nutrition and Dietetics (AND) and the Citizen Of [place] Society of Enteral and Parenteral Nutrition (ASPEN). [...] difference between simp (more content not included)... [facility] 08-14-2024 Note 08/14/24 1204 Admission [...] Status Interested Does the patient have a case advocate assigned to them through their insurance? No [...] to send link and activate MyChart? No [facility] 08-14-2024 Note Attestation signed by [...] see Dr. Bishop, do cardiac rehab at [place] and if he has uncontrolled chest pain [...] BID, Graeme Sorensen MD, 500 mg at 08/13/242206 rosuvastatin (Crestor) tablet 40 mg, 40 mg, [...] edema. Left lower (more content not included)... [facility] 08-13-2024 Note On antiplatelet agen t watch for hematuria and follow [facility] 08-13-2024 Note As above [facility] 08-13-2024 Note [facility]ulin [facility] Note Avoid hypovolemia an d nephrotoxic meds hold lisinopril since patient on Aldactone watch potassium electrolyte creatinine renal function consider nephrology consult [facility] 08-13-2024 Note Decongestive breath/ guideline directed medical therapy limited because of renal function watch creatinine electrolytes especially potassium intake and output [facility] 08-13-2024 Note Recent cystoscopy julien barnard urology CODE STATUS full code [facility] 08-13-2024 Note Chest pain-free, cyc le troponin telemetry continue statin aspirin nitrates beta-jason watch for hypotension and bradycardia cardiology to see patient [facility] 08-13-2024 Note Hospital Medicine History and Physical 08/13/2024 1:16 PM THE HOSPITALIST TEAM PREFERS TO USE [facility] FOR NON-URGENT COMMUNICATION 7AM-7PM. IF I DO NOT RESPOND WITHIN 20 MINUTES OR URGENT MATTERS, PLEASE CALL THROUGH THE [employer]. FROM 7PM-7AM, PLEASE PAGE [phone](COVR). Chief Complaint No chief complaint on file. History of Present Illness Lani Lizama is an 73 y.o. male 73 years old white male transferred from [facility] with intermittent chest pain anterior chest [...] basal and postprandial insulin. His labs from [facility] reveals patient having chronic kidney disease [...] HFrEF (heart failure with reduced ejection fraction) ([facility]) Decongestive breath/guideline directed medical therapy limited because of renal function watch creatinine electrolytes especially potassium intake and output Coronary artery disease involving tanacross coronary artery of tanacross heart As above Chronic kidney disease Avoid hypovolemia and nephrotoxic meds hold lisinopril since patient on Aldactone watch potassium electrolyte creatinine renal function consider nephrology consult Type 2 diabetes mellitus without complication, with long-term current use of insulin ([facility]) Insulin blood sugar check diet Angina at rest As above Gross hematuria On antiplatelet agent watch for hematuria and follow Bladder cancer ([facility]) Recent cystoscopy follows urology CODE STATUS full code VTE Prophylaxis: Heparin subcutaneous watch for bleed ----- Focus of this inpatient stay will remain on problems that need acute care setting for care. We will review available studies and will order additional labs, imaging and other studies as appropriate. As need (more content not included)... [facility] 08-04-2024 Hospital Discharge instructions Patient [...] Up Care 08/03/2024 14:29:05 With:Jason LARKIN Address: [address] [place] [phone] (1) When: Unknown Comments:Office will call to schedule follow up [facility] 08-04-2024 Note Patient Education Custom [...] you have a fever over 100 degrees. [facility] 08-03-2024 Note Patient Education Urology Cystoscopy [...] including vitamins, herbs, eye drops, creams, and tuvr-etr-xkozgsz medicines. ??? Any problems you or family [...] tells you to take them. ??? Taking skua-mvr-qyjqtcq medicines, vitamins, herbs, and supplements. Tests You [...] these instructions at home: Medicines ??? Take vlsk-xit-gxsnjbk and prescription medicines only as told by [...] (biopsy) during your (more content not included)... [facility] 07-14-2024 Evaluation note Diagnosis Onset Date [...] 025 11:19am Chronic kidney disease acute Ap 2024 11:19am Gross hematuria acute June 11:19am [...] HLD (hyperlipidemia) deleted August 03, 2024 9:17am [facility] Work Phone: 1(614) 616-614304-15-2025 Evaluation note* Diagnosis Onset Date Resolution Status [...] 9:17am DM2 (diabetes mellitus, type 2) indio August 03, 2024 9:17am HLD (hyperlipidemia) deleted [...] diabetic retinopathy acute August 25, 2024 11:31am [facility] Work Phone: 1(225) 908-594701-30-2025 Evaluation note* Diagnosis Onset Date Resolution Status [...] h hyperglycemia acute July 27, 2024 11:19am [facility] Work Phone: 1(420) 399-395901-16-2025 Evaluation note* Diagnosis Onset Date Resolution Status Admit Date Chronic HFrEF (heart failure with reduced ejection fraction) acute 2024 8:19am Chronic kidney disease acute Ja 2024 8:19am HTN (hypertension) acute 2024 8:19am [...] 2024 9:21am HLD (hyperlipidemia) deleted 2024 9:21am [facility] Work Phone: 1(271) 171-463501-16-2025 Evaluation note* Diagnosis Onset Date Resolution Status Admit Date Chronic HFrEF (heart failure with reduced ejection fraction) acute 2024 8:19am Chronic kidney disease acute Ja nuary 2024 8:19am HTN (hypertension) acute 2024 8:19am Hypercholesterolemia acute Desean 2024 8:19am Ischemic cardiomyopathy acute J anuary 2024 8:19am Pulmonary nodule acute April 16, 2024 8:19am Type 2 diabetes mellitus wit h hyperglycemia acute April 16 8:19am BMI 28.0-28.9,adult acute ry 2024 9:21am Dietary counseling and surveillance acute April 30 9:21am HTN (hypertension) acute r y 2024 9:21am DM2 (diabetes mellitus, type [...] kidney disease acute July 14, 2024 9:36am [facility] Work Phone: 1(465) 120-582201-02-2025 History of Present illness Narrative* Kenneth Tavera, DPM - 04/02/2024 11:50 AM EST Patient: Lani Mota Mega : 1950 PCP: Harley Crespo MD SUBJECTIVE [...] Diabetic retinopathy (CMS/HCC) HTN (hypertension) (CMS/HCC) Hypercholesteremia ([facility]) HI (myocardial infarction) ([facility]) 2021 Two total: 02/20, 03/22 Type 1 diabetes mellitus ([facility]) Medications: Current Outpatient Medications: ALPRAZolam (Xanax) 0.5 [...] in the morning., Disp: , Rfl: HYDROcodone-acetaminophen (Shamrock) 5-325 MG tablet, TAKE 1 TABLET BY [...] Strain: Low Risk (02/13/2024) Received from [facility] Overall Financial Resource Strain (CARDIA) Difficulty of Paying Living Expenses: Not very hard Food Insecurity: No Food Insecurity (02/13/2024) Received from [facility] Hunger Vital Sign Within the past 12 months, you worried that your food would run out before you got the money to buymore.: Never true Ran Out of Food in the Last Year: Not on file Transportation Needs: No Transportation Needs (02/13/2024) Received from [facility] Transportation In the past 12 months, has lack of transportation kept you from medical appointments or from getting medications?: No Lack of Transportation (Non-Medical): Not on file Physical Activity: Not on file Stress: Not on file Social Connections: Not on file Intimate Partner Violence: Unknown (02/13/2024) Received from [facility] Humiliation, Afraid, Rape, and Kick questionnaire Fear of Current or Ex-Partner: No Emotionally Abused: Not on file Physically Abused: Not on file Sexually Abused: Not on file Housing Stability: Low Risk (02/13/2024) Received from [facility] Housing Stability Vital Sign In the last 12 months, was there a time when you were not able to pay the mortgage or rent on time?: No Number of Times Moved in the Last Year: Not on file At any time in the past 12 months, were you homeless or living in a skilled nursing (including now)?: No ROS: General: denies fever, [...] and negative PT pedal pulses NEURO: 5.07 Potter Chun monofilament test diminished to digits and forefoot bilaterally 125Hz tuning fork diminished to 1st MPJ bilaterally ORTHO: Positive pain on palpation to nails 1 through 10 ASSESSMENT 1. Diabetes 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, without long-term current use of insulin ([facility]) 2. Pain due to onychomycosis [...] him Kenneth Tavera DPM documented in this encounterHermann Area District [id number] NoteUT Cardiology Consult Note Reason for visit: Complete heart block on event monitor, HFrEF 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%, atrial tachycardia 03/10/24 Patient here for 5 mo follow up bradycardia, complete heart block s/p PPM per Dr. Bishop. He was also admitted to [facility] for NSTEMI last month. Underwent heart cath with Dr. Pena on 02/12. He was started on Ranexa and lisinopril was stopped. Denies chest pain, SOB, and palpitations. Gets lightheaded at times, but no syncopal episodes. 05/07/23 Patient is s/p BiV ICD. he feels much better and believes that he is gone from to 10/08 with CAUSTIC MIXER. patient has got good device threshold. he [...] and hypertension. He was recently admitted to [facility] for NSTEMI. Had inpatient stress test and heart cath. Denies SOB but still having chest pain and has taken nitroglycerin a few times for relief. Had CT chest last week s/p discharge. Cardiac catheterization revealed patent bypass grafts and worsening tanacross vessel disease. Medications were adjusted. I had [...] Tobacco Use: Low Risk (01/23/2024) Received from [facility] [employer], [facility] Patient History Smoking Tobacco Use: Never Smokeless Tobacco Use: Never Passive Exposure: Not on file Alcohol Use: Not At Risk (03/13/2018) Received from [employer], [employer] Frequency of Alcohol Consumption: Never Average [...] Abused: Not on f (more content not included)...[facility]11-25-2024 Evaluation note* Diagnosis Onset Date [...] 2024 9:21am HLD (hyperlipidemia) deleted 2024 9:21am [facility] Work Phone: 1(682) 901-134011-15-2024 Notespital Medicine Discharge Summary Final Discharge Diagnosis: NSTEMI CAD s/p CABG, PCI 08/2023 Chronic heart failure with reduced ejection fraction, NYHA class II Insulin-dependent type 2 diabetes mellitus Chronic kidney disease stage III A Third degree AV block with AICD/pacemaker Essential hypertension Carotid stenosis Hyperlipidemia Peripheral vascular disease Admission Diagnosis: NSTEMI (non-ST elevated myocardial infarction) ([facility]) [I21.4] Hospital course: Lani Lizama is an 73 y.o. male who came from Transferred from [facility] with NSTEMI with NSTEMI. 71-year-old gentleman [...] procedure on that. Patient was transferred from [facility] to [facility] where he was seen for chest pain that has been going on for most of the day causing him to take nitroglycerin on 5 separate incidences and with intensification of the chest pain at shortening intervals that caused him to call the ambulance. At [facility] workup did show that patient had rising troponins initial 1 was 23 and then 85 isa intensity troponin. There was no mention change on the EKG as was reported to me by the ER physician Dr. Lagos at [facility]. Other workup that was done at [facility] included basic metabolic panel that showed [...] history as above. The ER physician from [facility] had spoken to our intramural director here who accepted the patient for transfer to [facility] for possible trip to the Director [employer] very early this morning depending on the [...] 03/10/2024 10:45 AM Kevin Arteaga MD [facility] Your medication list START taking these [...] 40 mg tablet Commonly (more content not included)...[facility] 02-13-2024 NoteHospital Medicine Daily Progress Note - 02/13/2024 8:36 AM; Room: [address] [place] [address] Admission: 02/13/2024 2:53 AM; Length of stay: 0 days THE HOSPITALIST TEAM PREFERS TO USE [employer] CHAT FOR COMMUNICATION 7AM-7PM. IF I DO NOT RESPOND WITHIN 15 MINUTES, PLEASE PAGE ME/CALL THROUGH THE [employer]. FROM 7PM-7AM, PLEASE PAGE [phone](COVR) Code Status: Full Code Barriers to Discharge: NSTEMI Expected Discharge Date: 2-3 days Discharge Destination: home Overview Patient is seen for evaluation and management of chest pain. Subjective Patient was examined at bedside resting comfortably. He presented overnight to ED after transfer from [place]. He states that he had crushing chest [...] Principal Problem: NSTEMI (non-ST elevated myocardial infarction) ([facility]) Active Problems: Coronary atherosclerosis Essential hypertension History of coronary artery bypass surgery Mixed hyperlipidemia Stage 3 chronic kidney disease ([facility]/HCC) Chest pain Type 2 diabetes mellitus with hyperglycemia ([facility]/HCC) PVD (peripheral vascular disease) ([facility]) Carotid stenosis, asymptomatic Assessment and Plan Lani Lizama is a 73 year old male with a past medical history of CAD with 9 stents, 5 vessel CABG, HTN, HLD, DM2, third degree AV block with pacemaker/AICD presented as a transfer from [place] ED with worsening crushing, radiating chest pain. Patient is being admitted to [facility] and cardiology has been consulted. Tentative [...] subcutaneous, Nightly isosorbide mononitra (more content not included)...[facility]11-14-2024 NoteHospital Medicine History and Physical 02/13/2024 3:40 AM THE HOSPITALIST TEAM PREFERS TO USE [employer] FOR NON-URGENT COMMUNICATION 7AM-7PM. IF I DO NOT RESPOND WITHIN 20 MINUTES OR URGENT MATTERS, PLEASE CALL THROUGH THE [employer]MENT [employer]. FROM 7PM-7AM, PLEASE PAGE [phone](COVR). Chief Complaint No chief complaint on file. History of Present Illness Lani Lizama is an 73 y.o. male who came from Transferred from [facility] with NSTEMI with NSTEMI. 71-year-old gentleman [...] procedure on that. Patient was transferred from [facility] to [facility] where he was seen for chest pain that has been going on for most of the day causing him to take nitroglycerin on 5 separate incidences and with intensification of the chest pain at shortening intervals that caused him to call the ambulance. At [facility] workup did show that patient had rising troponins initial 1 was 23 and then 85 isa intensity troponin. There was no mention change on the EKG as was reported to me by the ER physician Dr. Lagos at [facility]. Other workup that was done at [facility] included basic metabolic panel that showed [...] history as above. The ER physician from [facility] had spoken to our intramural director here who accepted the patient for transfer to [facility] for possible trip to the Director [employer] very early this morning depending on the [...] Principal Problem: NSTEMI (non-ST elevated myocardial infarction) ([facility]) Active Problems: Coronary atherosclerosis Essential hypertension History of coronary artery bypass surgery Mixed hyperlipidemia Stage 3 chronic kidney disease (CMS/HCC) Chest pain Type 2 diabetes mellitus with hyperglycemia ([facility]/HCC) PVD (peripheral vascular disease) ([facility]) Carotid stenosis, asymptomatic Assessment and Plan PLAN OF CARE: 71-year-old gentleman with very profuse history of cardiovascular disease including prior CAD with stents and CABG as well as hypertension and HLD comes seen with acute NSTEMI. Patient is being admitted to [facility] and cardiology has been consulted with possible trip to the Director [employer] at the earliest possible time by cardiology. [...] be -Consult cardiology (done) (more content not included)...[facility]10-24-2024 History of Present illness Narrative* Kenneth Tavera, JULES - 01/23/2024 11:30 AM EDT Patient: Lani [...] has only been using prescribed or recommended ygde-mzh-xgsymoe cream with some improvement. Patient also has longstanding history of multiple MIs and cardiac history Allergies: Allergies Allergen Reactions Other Other Reaction(s): Unknown Received name: Nkda Past Medical History: Past Medical History: Diagnosis Date Diabetic retinopathy (CMS/HCC) HTN (hypertension) ([facility]/HCC) Hypercholesteremia (CMS/HCC) HI (myocardial infarction) ([facility]) 2021 Two total: 02/20, 03/22 Type 1 diabetes mellitus ([facility]) Medications: Current Outpatient Medications: ALPRAZolam (Xanax) 0.5 [...] in the morning., Disp: , Rfl: HYDROcodone-acetaminophen (Shamrock) 5-325 MG tablet, TAKE 1 TABLET BY [...] Strain: Low Risk (09/26/2023) Received from [facility] Overall Financial Resource Strain (CARDIA) Difficulty of Paying Living Expenses: Not very hard Food Insecurity: No Food Insecurity (09/26/2023) Received from [facility] Hunger Vital Sign Within the past 12 months, you worried that your food would run out before you got the money to buymore.: Never true Ran Out of Food in the Last Year: Not on file Transportation Needs: No Transportation Needs (09/26/2023) Received from [facility] Transportation In the past 12 months, has lack of transportation kept you from medical appointments or from getting medications?: No Lack of Transportation (Non-Medical): Not on file Physical Activity: Not on file Stress: Not on file Social Connections: Not on file Intimate Partner Violence: Unknown (09/26/2023) Received from [facility] Humiliation, Afraid, Rape, and Kick questionnaire Fear of Current or Ex-Partner: No Emotionally Abused: Not on file Physically Abused: Not on file Sexually Abused: Not on file Housing Stability: Low Risk (09/26/2023) Received from [facility] Housing Stability Vital Sign Unable to Pay [...] and negative PT pedal pulses NEURO: 5.07 Potter Chun monofilament test diminished to digits and forefoot bilaterally 125Hz tuning fork diminished to 1st MPJ bilaterally ORTHO: Positive pain on palpation to nails 1 through 10 ASSESSMENT 1. Diabetes 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, without long-term current use of insulin ([facility]) 2. Pain due to onychomycosis [...] him Kenneth Tavera DPM documented in this encounterHermann Area District [id number] [facility] Note Chief Complaint: Patient here for follow up [facility] for NSTEMI. Underwent PCI on 09/27/[address] Foreman. Says he feels much better s/p intervention. Denies chest pain, SOB, palpitations, and lightheadedness/syncope. HPI: Lani Lizama is a 72 y.o. male Hospital Medicine Discharge Summary Final Discharge Diagnosis: #NSTEMI #chronic HFrEF NYHA class I #CAD #HTN #Diabetes #Hx bradycardia Admission Diagnosis: NSTEMI (non-ST elevated myocardial infarction) ([facility]) [I21.4] Hospital course: 72-year-old male with past medical history significant for CAD status post CABG x 5 vessels and history of 7 PCI's who presented to the hospital due to chest pain. The patient does have HFrEF with an EF of 15 to 20% status post BiV CAUSTIC MIXER-D. Patient reports compliance with his medications and that he is not requiring diuretics. Initial evaluation at the outside hospital showed elevated high-sensitivity troponins and he was sent to [facility] for an evaluation by cardiology. Patient [...] artery stenosis, Coronary artery disease, Diabetes mellitus ([facility]), Hyperlipidemia, Hypertension, PVD (peripheral vascular disease) ([facility]), and Third degree heart block ([facility]). Surgical History He has a [...] 98% BMI 27.88 kg (more content not included)...[facility]06-29-2024 Note Attestation signed by Kevin [...] Daily, Heidy Dee MD, 75 mg at 09/28/23918 dapagliflozin propanediol (Farxiga) tablet 10 mg, 10 [...] Daily, Heidy Dee MD, 40 mg at 09/28/23630 rosuvastatin (Crestor) tablet 40 mg, 40 mg, oral, Nightly, Heidy Dee MD, 40 mg at 09/27/234 Insert peripheral IV, , , Once AND [...] Value Ventricular Rate 78 Atrial Rate 78 ID Interval 160 QRS DURATION 144 QT Interval 444 QTC CALCULATION(BAZETT) 506 P Grundy 49 R-Grundy -41 T Wave Grundy 106 Impression Atrial-sensed ventricular-paced rhythm Abnormal ECG When compared with ECG of 26-SEP-2023 18:59, Vent. rate has decreased BY 3 BPM Lab Results Component Value Date TROPONINI 3.05 (HH) 09/27/2023 Complete Echo (TTE) w/wo Imaging Agent, Strain, 3D, Bubble Study Result Date: 09/27/2023 1 1 [facility] Heart Station [address] [place] [address] [phone] (fax) Echocardiogram-[facility] Name: LANI LIZAMA Study Date: 09/27/2023 07:42 AM B/P: 118 mmHg/57 mmHg (more content not included)...[facility] 09-28-2023 NoteHospital Medicine Discharge Summary Final Discharge Diagnosis: #NSTEMI #chronic HFrEF NYHA class I #CAD #HTN #Diabetes #Hx bradycardia Admission Diagnosis: NSTEMI (non-ST elevated myocardial infarction) ([facility]) [I21.4] Hospital course: 72-year-old male with past medical history significant for CAD status post CABG x 5 vessels and history of 7 PCI's who presented to the hospital due to chest pain. The patient does have HFrEF with an EF of 15 to 20% status post BiV CAUSTIC MIXER-D. Patient reports compliance with his medications and that he is not requiring diuretics. Initial evaluation at the outside hospital showed elevated high-sensitivity troponins and he was sent to [facility] for an evaluation by cardiology. Patient [...] September 28, 2023. Dear Dr. Cherie MD, [place] is advised to follow up with you [...] Heidy Dee MD Hospital Medicine 09/28/2023 11:15 AMUniversity [facility]als [facility]06-28-20[facility] NotePatient: Lani Lizama Procedure Information Date/Time: 09/27/23 1300 Procedure: Coronary angiography Location: [facility] RADIO SURVEY WORKER 3 / [facility] (Cath) Providers: Luisito [...] discussed with fellow and attending. Additional Equipment RequestsUniversity Hospitals [facility]age [facility] Center06-28-2024 Note Adult Nutrition Assessment: Name: Lani Lizama Date: 1950 Date of Visit: 09/27/23 Admission Dx: NSTEMI (non-ST elevated myocardial infarction) ([facility]) [I21.4] Reason for assessment: high risk -wound Information obtained from: patient, family, medical record, and nursing -son at bedside Past Medical History: Diagnosis Date Carotid artery stenosis Coronary artery disease Diabetes mellitus ([facility]) Hyperlipidemia Hypertension PVD (peripheral vascular disease) ([facility]/HCC) Third degree heart block ([facility]) CABG x5, stents, EF 30%, [...] CREATININE 1.56 (H) 09/27/2023 035 NA 140 09/27/2023358 K 4.3 09/27/2023358 MG 2.0 10/15/2018 0556 HGB 15.3 09/27/2023358 WBC 7.95 09/27/2023 035 CHOL 108 (L) 09/27/2023 035 HDL 31 09/27/2023 035 Other Pertinent Labs: BG POC 151-286 A1c [...] Question: Reason for NPO: Answer: Operation/Procedure 09/26/23 8906 Percent Meals Eaten (%): 100 (09/26/23 1851 : Carolina Bragg RN) Nutrition Risk: Low Malnutrition Assessment: Patient at risk for malnutrition according to hospital criteria, but does not meet the clinical characteristics per the Academy of Nutrition and Dietetics, and the [place] Society of Enteral and Parenteral Nutrition to [...] compliance w/ MNT Contact the dietitian via [employer] chat 8A-4P Saturday through Saturday or call extension [phone]. For weekends & holidays, the dietitian can be reached via pager [phone] from 9A-3P. Unable to respond to [employer] messages on Saturday & s.[facility]06-28-2024 Note Attestation signed by Heidy [...] Progress Note - 09/27/2023 10:26 AM; Room: [facility]- Admission: 09/26/2023 4:35 PM; Length of stay: 1 days THE HOSPITALIST TEAM PREFERS TO USE [employer] CHAT FOR COMMUNICATION 7AM-7PM. IF I DO NOT RESPOND WITHIN 15 MINUTES, PLEASE PAGE ME/CALL THROUGH THE [employer]. FROM 7PM-7AM, PLEASE PAGE [phone](COVR) Code Status: Full Code Barriers to Discharge: Pending cardiac workup Expected Discharge Date: TB Discharge Destination: home Overview Patient is seen for evaluation and management of NSTEMI. Juanjo Lizama is a 72 y/o male with a significant PMHx for HFpEF (NYHA class 3), coronary artery disease [s/p 5 vessel CABG (patient reports CABG performed in 1995), 7 stents], DM2, hyperlipidemia, peripheral vascular disease, 3rd degree heart block (s/p BiV CAUSTIC MIXER-D) that presented to OSH w/ c/o chest pain that radiated to left arm and jaw. Pain was described as centrally-located and pressure-like, and unrelieved by Nitroglycerin x3. Patient started on nitroglycerin drip which provided relief. Initial tropin was unremarkable, but repeat was elevated (2962). He was started on heparin and transferred to [facility]. Today, patient is examined at bedside, [...] Principal Problem: NSTEMI (non-ST elevated myocardial infarction) ([facility]) Assessment and Plan #NSTEMI - Supplemental oxygen NC - DAPT (aspirin 81 mg, daily; and Plavix 75 mg, daily) - Metoprolol Succinate XL (150 mg, daily) - Rosuvastatin (40 mg, nightly) #HFrEF - Echo pending #CAD - Angiogram planned today #HTN #Diabetes - Insulin sliding scale - Goal blood sugar 140-180 #Hx bradycardia - s/p CAUSTIC MIXER-D Wounds: Wound 09/26/23 Other (comment) Toe (Comment [...] 81 mg, oral, Daily (more content not included)...[facility]01-30-2024 Evaluation note* Encounter Date Diagnosis Assessment Notes Treatment Notes Treatment Clinical Notes Apr, Chronic HFrEF (heart failure with reduced ejection fraction) (ICD-10 - I50.22) [employer] Other 12-12-2023 Evaluation note* Encounter Date Diagnosis [...] age/comorbidities 2. Blood glucose levels according to [employer] cgm download 02/27/2023- 023: Average glucose 134. [...] PAP-Jardiance was denied, pt given information on [facility] diabetes discount program instructed to apply order [...] hypertension material was printed on diony. 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 Mar, BMI 27.0-27.9,adult (ICD-10 - Z68.27) Eating healthy: tips to make it easier material was printed [employer] Other 2023 Evaluation note* Encounter Date Diagnosis Assessment Notes Treatment Notes Treatment Clinical Notes Jan, Chronic HFrEF (heart failure with reduced ejection fraction) (ICD-10 - I50.22) [employer] Other 10-09-2023 Evaluation note* Encounter Date Diagnosis [...] Continue statins. Monitor LFTs and lipid profile. [employer] Other 10-06-2023 Evaluation note* Encounter Date Diagnosis Assessment Notes Treatment Notes Treatment Clinical Notes Dec, Ground glass opacity present on imaging of lung (ICD-10 - R91.8) CT: RUL, RML - 12/2022Dec, Pulmonary nodule (ICD-10 - R91.1) CT: 7mm RML nodule - 12/2022 [employer] Other 10-03-2023 Evaluation note* Encounter Date Diagnosis Assessment Notes Treatment Notes Treatment Clinical Notes Dec, Stage 3b chronic kidney disease (ICD-10 - N18.32) [employer] Other 10-02-2023 Evaluation note* Encounter Date Diagnosis [...] risk for cerebrovascular and cardiovascular disease. 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 Aug, longterm (current) use of insulin (ICD-10 - Z79.4) [employer] Other 05-11-2023 Evaluation note* Encounter Date Diagnosis Assessment Notes Treatment Notes Treatment Clinical Notes July, Ground glass opacity present on imaging of lung (ICD-10 - R91.8) CT: RML,RUL infiltrate - 12/2021, CT: RML,RUL improved - 03/2022 CT: RML, RUL, GGO improved - 07/2022 [employer] Other 04-03-2023 Evaluation note* Encounter Date Diagnosis [...] D and PTH. Advised low phosphorus diet. [facility] Other 03-30-2023 Evaluation note* Encounter Date Diagnosis [...] are reviewed at the office visit. May, longterm (current) use of insulin (ICD-10 - Z79.4) [...] (ICD-10 - Z12.5) Yearly PSA and ABDELRAHMAN [facility] Other 03-28-2023 Evaluation note* Encounter Date Diagnosis [...] hypertension material was printed on diony. May, security specialist current use of insulin (ICD-10 - Z79.4) May, Hyperlipidemia (ICD-10 - E78.5) High cholesterol material was printed 05/2022 ldl 69- on statin. May, BMI 27.0-27.9,adult (ICD-10 - Z68.27) Eating healthy: tips to make it easier material was printed [facility] Other 02-25-2023 Evaluation note* Encounter Date Diagnosis Assessment Notes Treatment Notes Treatment Clinical Notes May, Abnormality of lung on CXR (ICD-10 - R91.8) [facility] Other 12-20-2022 Evaluation note* Encounter Date Diagnosis [...] 2. Blood glucose levels stable. According to [facility] cgm download 03/07/2022-03/20/20 22: Average glucose 144. Above 250-0%, >180- 15%, 70-180-85%, <70-0%, <54-0%. CV 24.3%. Reviewed download with pt, no incidence of hypoglcyemia noted. Glucose rise between 12-6pm. D/t current shortage of ozempic, recommend pt reduce dose to 0.5mg once weekly until shipment recieved from [facility], then increase to 1mg once [...] hypertension material was printed on diony. 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 Mar, BMI 26.0-26.9,adult (ICD-10 - Z68.26) Eating healthy: tips to make it easier material was printed 9 pound weight loss from last visit, continue with weight loss efforts [facility] [employer] Other 11-10-2022 Evaluation note* Encounter Date Diagnosis Assessment Notes Treatment Notes Treatment Clinical Notes Jan, Diabetes mellitus with chronic kidney disease (ICD-10 - E11.22) [facility] [employer] Other 10-19-2022 Discharge summary Author Gagan Shahid 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 Cardiac catheterization was undergone on 01/16/2022 showing [...] levels as before. DISCHARGE INSTRUCTIONS FOR CARDIAC RADIO SURVEY WORKER PHONE NUMBER OF YOUR PHYSICIAN: [phone] PROCEDURE: Heart Cath The following instructions have [...] cold, numb, blue or white, call the intramural director immediately. 4. ACTIVITY: You are advised to [...] bottle, follow the instructions on the bottle. [facility] is not responsible for incorrect prescription [...] signed by Gagan Shahid DO> 01/17/22 150[address] [facility] Work Phone: 1(397) 507-260510-19-2022 Progress note Author Luis Alfredo Borges [facility] January 17, 2022 11:47am Note Date/Time January 17, 2022 1 1:47am [facility] [address] [place] [address] Cardiology Progress Note Signed Patient: Lani Lizama MR#: [id number] : 1950 Acct:[id number] Age/Sex: 71 / M Adm Date: 2 Loc: Room: [address] [place] [address] Type: ADM IN Attending Dr: Gagan Shahid [...] is also notable worsening of the patient's tanacross occlusive coronaryheart disease particularly in the microcirculation [...] daily 3. Patient does have a primary intramural director near his home in [place]. We willschedule him 1 follow-up visit in [facility] for left wrist check and also for counseling and reinforcement/referral to phase 2 monitored cardiac rehabilitation which the patient desires to perform in [place]. 4. Instructed the patient that he can [...] by Luis Alfredo Borges MD> 01/17/22 1147 [facility] Work Phone: 1(163) 414-219410-18-2022 Progress note Author Gagan Shahid [facility] January 16, 2022 4:09pm Note Date/Time January 16, 2022 4 :09pm [facility] [address] [place] [address] Hospitalist Progress Note Signed Patient: Lani Lizama MR#: [id number] : 1950 Acct:[id number] Age/Sex: 71 / M Adm Date: 2 Loc: Room: [address] [place] [address] Type: ADM IN Attending Dr: Gagan Shahid [...] 93 L Room Air 2 01/16/22 14:55 10/18/22 14:55 01/16/22 14:55 01/16/22 14:55 01/16/22 14:55 [...] Insuln.Pen SUBCUT 01/15/23 21:59 Not Given TID.[facility] Protocol Isosorbide Mononitrate 60 mg 01/16/22 21:00 [...] <Electronically signed by Gagan Shahid DO> 01/16/22 8746 [facility] Work Phone: 1(397) 680-780310-18-20[address] [facility] Consult note Author Luis Alfredo Borges [facility] January 16, 2022 10:24am Note Date/Time January 16, 2022 1 0:24am [facility] [address] [place] [address] Cardiology Consult Note Signed Patient: Lani Lizama MR#: [id number] : 1950 Acct:[id number] Age/Sex: 71 / M Adm Date: 2 Loc: Room: [address] [place] [address] Type: ADM IN Attending Dr: Gagan Shahid [...] well as history of PCI done here [facility] per Dr. Saldaña in May 2020 [...] he activated EMS and was taken to [facility] emergency department. There the patient was [...] Lymph # (Auto) 1.0 1.6 (1.00-4.8) x10E3/uL Nicollet # (Auto) 0.4 0.8 (0.0-0.8) x10E3/uL Eos [...] nonspecific abnormality, ST segment, and/or T wave HI, pacemaker, normal Normal tracing: no change compared [...] [facility] Work Phone: 1([phone]) 919-421910-17-2022 History and physical note Author Gagan Shahid [facility] January 15, 2022 6:56pm Note Date/Time January 15, 2022 6 :02pm [facility] [address] [place] [address] Hospitalist H&P Signed Patient: Lani Lizama MR#: [id number] : 1950 Acct:[id number] Age/Sex: 71 / M Adm Date: 2 Loc: Room: [address] [place] [address] Type: ADM IN Attending Dr: Gagan Shahid [...] need for cardiovascular evaluation [facility] was [facility] for further management and cardiology consultation. [...] % (Auto) 13.8 % (.) 01/15/22 15:00 Nicollet % (Auto) 6.1 % (.) 01/15/22 15:00 Eos % (Auto) 0.9 % (.) 01/15/22 15:00 Baso % (Auto) 0.5 % (.) 01/15/22 15:00 Neut # (Auto) 5.6 x10E3/uL (1.8-7.7) 01/15/22 15:00 Lymph # (Auto) 1.0 x10E3/uL (1.00-4.8) 01/15/22 15:00 Nicollet # (Auto) 0.4 x10E3/uL (0.0-0.8) 01/15/22 15:00 [...] <Electronically signed by Gagan Shahid DO> 01/15/22 6050 [facility] Work Phone: 1(651) 561-118109-19-2022 Evaluation note* Encounter Date Diagnosis Assessment Notes [...] Blood glucose levels above improved. According to [facility] cgm download 12/05/2021- 2: Average glucose 119. [...] hypertension material was printed on diony. Nov, longterm current use of insulin (ICD-10 - Z79.4) Nov, Hyperlipidemia (ICD-10 - E78.5) High cholesterol material was printed 06/2021 ldl 48- on statin. Nov, BMI 27.0-27.9,adult (ICD-10 - Z68.27) Eating healthy: tips to make it easier material was printed 22 pound weight loss from last visit, continue with weight loss efforts [employer] Other 07-22-2022 Miscellaneous Notes* Telephone Encounter - Vee Day - 10/20/2021 9:42 AM EDT New CBC order. Vee Day [facility] Evaluation note* Encounter Date Diagnosis Assessment Notes [...] Blood glucose levels above improved. According to [facility] cgm download 07/04/2021-07/17/2021 : Average glucose 146. [...] hypertension material was printed on diony. Jun, longterm current use of insulin (ICD-10 - Z79.4) Jun, BMI 30.0-30.9,adult (ICD-10 - Z68.30) Eating healthy: tips to make it easier material was printed see above Jun, Bradycardia (ICD-10 - R00.1) asymptomatic- f/u with cardiology has upcoming apt. If symptomatic i.e. light headed notify sooner [facility] Other 03-21-2022 Evaluation note* Encounter Date Diagnosis Assessment Notes Treatment Notes Treatment Clinical Notes May, Gastro-esophageal reflux disease with esophagitis, without bleeding (ICD-10 - K21.00) [facility] Other 03-08-2022 Evaluation note* Encounter Date Diagnosis [...] His MBD parameters are within the goal. [facility] Other 02-21-2022 Evaluation note* Encounter Date Diagnosis Assessment Notes Treatment Notes Treatment Clinical Notes May, Diabetes mellitus with chronic kidney disease (ICD-10 - E11.22) [employer] Other 01-10-2022 Evaluation note* Encounter Date Diagnosis Assessment Notes Treatment Notes Treatment Clinical Notes Apr, Type 2 diabetes mellitus with hyperglycemia (ICD-10 - E11.65) [facility] Other 01-10-2022 Evaluation note* Encounter Date Diagnosis [...] was also given rx assist paperwork for [facility] if he does not qualify for BI/jardiance. Ozempic will increase to 1mg once weekly. Apr, Hyperlipidemia (ICD-10 - E78.5) High cholesterol material was printed 07/2020 ldl 64 trig 207- on statin. Apr, HTN (hypertension) (ICD-10 - I10) About hypertension material was printed on diony. 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 [facility] Other 10-05-2021 Evaluation note* Encounter Date Diagnosis [...] above target with increased variability. According to [facility] cgm download 12/07/2020-01/03/2021: Average glucose 135. Above [...] hypertension material was printed on diony. Dec, longterm current use of insulin (ICD-10 - Z79.4) Dec, BMI 31.0-31.9,adult (ICD-10 - Z68.31) Eating healthy: tips to make it easier material was printed 12 pound weight loss from last visit, continue with weight loss efforts Dec, Bradycardia (ICD-10 - R00.1) Pt asymptomatic. Notified intramural director Dr. Velazquez. Pt has apt on Saturday next week. [employer] Other Chimh complaint+Reason for visit Narrative* Chief Complaint 4 month follow up Reason for Visit BMI 28.0-28.9,adult Dietary counseling and surveillance HTN (hypertension) Chronic HFrEF (heart failure with reduced ejection fraction) Chronic kidney disease [id number] HTN (hypertension) Hypercholesterolemia Ischemic cardiomyopathy Pulmonary nodule Type 2 diabetes mellitus with hyperglycemia [facility] Work Phone: Evaluation + Plan note No data available for this section General Surgery Luis Enrique Evaluation + Plan note Future Appointments Appointment Date:08/04/2024 10:00:00 AM Scheduled Provider: Location:[facility] Appointment Type:Urology FT Diagnostic Tests Pending * Urine Cytology ([facility]) 08/03/24 [facility] evalubqljc noteNo InformationNortKind[facility] Other evaluayyqg note* Diagnosis Monoclonal gammopathy- Primary Monoclonal paraproteinemia documented in this encounter [facility]* Diagnosis Onset Date Resolution Status Non-ST elevation myocardial infarction (NSTEMI), initial care episode acute [facility] Work Phone: evalumtaye noteNo assessment information available [facility] Work Phone: evaluation note* Diagnosis Onset Date Resolution Status BMI 26.0-26.9,adult acute Dietary counseling and surveillance acute DM2 (diabetes mellitus, type 2) acute HLD (hyperlipidemia) acute HTN (hypertension) acute [facility] Work Phone: evaluation note* Diagnosis Onset Date Resolution Status BMI 26.0-26.9,adult acute Dietary counseling and surveillance acute DM2 (diabetes mellitus, type 2) acute HLD (hyperlipidemia) acute HTN (hypertension) acute Chronic HFrEF (heart failure with reduced ejection fraction) acute CKD (chronic kidney disease) stage 3, GFR 30-59 ml/min acute HLD (hyperlipidemia) acute [id number] acute Secondary hyperparathyroidism acute Type 2 diabetes 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 acute [facility] Work Phone: Evaluation note* Diagnosis Onset Date Resolution Status Dietary counseling and surveillance acute HTN (hypertension) acute Chronic HFrEF (heart failure with reduced ejection fraction) acute CKD (chronic kidney disease) stage 3, GFR 30-59 ml/min acute [id number] acute Secondary hyperparathyroidism acute Type 2 diabetes 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 acute Chronic HFrEF (heart failure with reduced ejection fraction) acute Chronic kidney disease acute HTN (hypertension) acute Hypercholesterolemia acute Ischemic cardiomyopathy acut e Pulmonary nodule acute Type 2 diabetes mellitus with hyperglycemia acute Medicare annual wellness visit, subsequent noneactive Screening PSA (prostate specific antigen) noneactive [facility] Work Phone: evaluation note* Diagnosis Onset Date [...] counseling and surveillance acute HTN (hypertension) acute [facility] Work Phone: Evaluation note* Diagnosis Onset Date Resolution Status BMI 28.0-28.9,adult acute Dietary counseling and surveillance acute HTN (hypertension) acute Chronic HFrEF (heart failure with reduced ejection fraction) acute Chronic kidney disease acute [id number] acute HTN (hypertension) acute Hypercholesterolemia acute Ischemic cardiomyopathy acut e Pulmonary nodule acute Type 2 diabetes mellitus with hyperglycemia acute [facility] Work Phone: evaluation note* Diagnosis Onset Date [...] disease) stage 3, GFR 30-59 ml/min acute [id number] acute Secondary hyperparathyroidism acute Type 2 diabetes 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 acute [facility] Work Phone: Evaluation note* Diagnosis Onset Date Resolution Status Chronic HFrEF (heart failure with reduced ejection fraction) acute Chronic kidney disease acute HTN (hypertension) acute Hypercholesterolemia acute Ischemic cardiomyopathy acut e Pulmonary nodule acute Type 2 diabetes mellitus with hyperglycemia acute Chronic HFrEF (heart failure with reduced ejection fraction) acute CKD (chronic kidney disease) stage 3, GFR 30-59 ml/min acute [id number] acute Secondary hyperparathyroidism acute Type 2 diabetes 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 acute BMI 27.0-27.9,adult acute Dietary counseling and surveillance acute HTN (hypertension) acute [facility] Work Phone: Evaluation note* Diagnosis Xerosis cutis- Primary Other specified disease of sebaceous glands Diabetes 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, without long-term current use of insulin (CMS/HCC) Pain due to onychomycosis of toenails of both feet documented in this encounter [facility]* Diagnosis Diabetes 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, without long-term current use of insulin (CMS/HCC)- Primary Pain due to onychomycosis of toenails of both feet documented in this encounter [facility] HealthcareEvaluation note* Diagnosis Diabetes 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, without long-term current use of insulin (HCC)- Primary Pain due to onychomycosis of toenails of both feet Xerosis cutis Other specified disease of sebaceous glands documented in this encounter [facility] HealthcareHistory general Narrative - Reported* Type [...] 11-25-16 Hospitalization History HEART STENT PLACED 03-20 [employer] Other Hisjaxg general Narrative - ReportedNort [employer] Other Hisxabr general Narrative - Reported* Type Description Date [...] 11-25-16 Hospitalization History HEART STENT PLACED 03-20 [facility] Other Hisiarn general Narrative - Reported* Type Description Date [...] 11-25-16 Hospitalization History HEART STENT PLACED 03-20 [employer] Other Hisgcdr general Narrative - Reported* Type Description Date [...] 11-25-16 Hospitalization History HEART STENT PLACED 03-20 [employer] Other History general Narrative - Reported* Type [...] STENT PLACED 03-20 Hospitalization History SEE ABOVE [employer] Other History general Narrative - ReportedNortCascaad ([employer]) Other History general Narrative - Reported* Type [...] STENT PLACED 03-20 Hospitalization History SEE ABOVE [facility] Other History general Narrative - Reported* Type [...] PLACED 11-25-16 Hospitalization History HEART STENT PLACED 12-20 18 Hospitalization History SEE ABOVE [employer] Other History general Narrative - Reported* Type [...] STENT PLACED 03-20 Hospitalization History SEE ABOVE [employer] Other History general Narrative - Reported* Type [...] History GGO and Pulmonary nodules Medical History HI 01/21 Medical History Defibrilator 02/21 Surgical History [...] 03-20 Hospitalization History SEE ABOVE Hospitalization History HI 01/21 [facility] Other Hospital Discharge instructions No data available for this section General Surgery Luis Enrique Hospital Discharge instructions Additional Instructions Monitor glucose levels as before. DISCHARGE INSTRUCTIONS FOR CARDIAC RADIO SURVEY WORKER PHONE NUMBER OF YOUR PHYSICIAN: [phone] PROCEDURE: Heart Cath The following instructions have [...] cold, numb, blue or white, call the intramural director immediately. 4. ACTIVITY: You are advised to [...] bottle, follow the instructions on the bottle. [facility] is not responsible for incorrect prescription information provided by the patient during their visit. Do not stop your medications without consulting your health care provider. Please take the list with you to your next doctor's appointment. [facility] Work Phone: Hospital Discharge instructionsAmbulatory Orders* Referral to Podiatry Location: None Selected [facility] Work Phone: Hospital Discharge instructionsAmbulatory Orders* Referral to Urology Time Frame: 07/14/24, Location: None [facility] Work Phone: Progress note No data available for this section General Surgery [place] Summary Purpose Family History No Family History [...] stage 3, GFR 30-59 ml/min HLD (hyperlipidemia) [id number] Secondary hyperparathyroidism Type 2 diabetes mellitus with diabetic chronic kidney disease 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 6 month follow up MEDICARE WELLNESS Reason for Visit Dietary counseling a nd surveillance HTN (hypertension) Chronic HFrEF (heart failure with reduced ejection fraction) CKD (chronic kidney disease) stage 3, GFR 30-59 ml/min [id number] Secondary hyperparathyroidism Type 2 diabetes mellitus with [...] kidney disease) stage 3, GFR 30-59 ml/min [id number] Secondary hyperparathyroidism Type 2 diabetes mellitus with [...] kidney disease) stage 3, GFR 30-59 ml/min [id number] Secondary hyperparathyroidism Type 2 diabetes mellitus with diabetic chronic kidney disease BMI 27.0-27.9,adult Dietary counseling and surveillance HTN (hypertension) Chief Complaint Admit Date Amb Documentation February 18, 2024 9:11am CC Adult Risk Stratification February 172023 10:26am IP f/u [facility] chest pain-HIGH RISK Nov 2023 9:29am [...] Amb Documentation August 21, 2024 1:11p m [facility] f/u August 25, 2024 11:31 am Reason [...] section and content) DATE CREATED AUTHOR 11/29/2018 [facility] DATE CREATED AUTHOR AUTHOR'S ORGANIZ ATION 10/25/2021 [facility] DATE CREATED AUTHOR AUTHOR'S ORGANIZ ATION 08/13/2022 [facility] [place] [facility] DATE CREATED AUTHOR AUTHOR'S ORGANIZ ATION 08/09/2024 [facility] DATE CREATED AUTHOR AUTHOR'S ORGANIZ ATION 08/12/2024 [facility] DATE CREATED AUTHOR AUTHOR'S ORGANIZ ATION 09/22/2024 [facility] DATE CREATED AUTHOR AUTHOR'S ORGANIZ ATION 09/24/2024 [facility] DATE CREATED AUTHOR AUTHOR'S ORGANIZ ATION 09/25/2024 [facility] Specialists EPIC REASON FOR VISIT (unrecogniz ed section and [...] Care Provider Active Start: July 15, [address] DO Attending Provider Active Sta rt: [...] August 03, 2024 End: August 03, 2024 Viky Kwong APRN Attending Provider Active Start: August 03, 2024 End: August 03, 2024 Team Status: Inactive Member Role Status Anna Crespo DO Primary Care Provide r, Attending Provider Active Start: April 16, 2024 End: April 16, 2024 Team Status: Inactive Member Role Status Anna Crespo DO Primary Care Provider Active Start: April 30, 2024 End: April 30, 2024 Viky Kwong APRN Attending Provider Active Start: April [...] October 17, 2023 End: October 17, 2023 Viky Kwong APRN Attending Provider Active Start: October [...] Care Provider Active Start: June 13, 2023 Viky Kwong APRN Attending Provider Active Start: June 13, 2023 Team Status: Inactive Member Role Status Anna Crespo DO Primary Care Provider Active Start: June 18, 2023 End: June 18, 2023 Viky Kwong APRN Attending Provider Active Start: June [...] July 02, 2023 End: July 02, 2023 Curriculum Designer Relationship Specialty Start Date End Date Harley Crespo DO [address] [facility] [place] [address] PCP - General Internal Medicine 07/18/18 Team Status: Inactive Member Role Status Dates Harley Crespo DO Primary Care Provider Active Gagan Shahid DO Admit Provider, Attending Provider Active Team Status: Active Member Role Status Dates Harley Crespo DO Primary Care Provider Active Ryan Garrett APRN AUDIO VISUAL AIDS DIRECTOR-C Active Valerie Gallegos PA-C Active Viky Kwong APRN Attending Provider Active Team Status: Inactive Member Role Status Dates Viky Kwong APRN Attending Provider Active Start: March 12, 2023 End: March 12, 2023 Team Status: Inactive Member Role Status Dates Harley Crespo DO Primary Care Provider Active Start: March 12, 2023 End: March 12, 2023 Ryan Garrett APRN AUDIO VISUAL AIDS DIRECTOR-C Active Sta rt: March 12, 2023 End: [...] January 23, 2024 End: January 23, 2024 Viky Kwong APRN Attending Provider Active Start: January 23, 2024 End: January 23, 2024 Curriculum Designer Relationship Specialty Start Date End Date Harley Crespo MD [address] [facility] [place] [address] PCP - General Internal Medicine 11/07/23 Curriculum Designer Relationship Specialty Start Date End Date Harley Crespo MD [address] [facility] [place] [id number] PCP - General Internal Medicine 11/07/23 Curriculum Designer Relationship Specialty Start Date End Date Harley Crespo MD [address] [facility] [place] [place] [phone] PCP - General Internal Medicine 11/07/23 Team [...] Attending Provider Active Start: August 27, 2024 Curriculum Designer Relationship Specialty Start Date End Date Harley Crespo DO [address] [facility] [place] [place] [phone] PCP - General Internal Medicine 11/07/23 Curriculum Designer Relationship Specialty Start Date End Date Harley Crespo DO [address] [place] [phone] PCP - General Internal Medicine 11/07/23 Source Comments (unrecognize d section and content) In the event this informatio n is protected by the Federal Confidentiality of Alcohol and Drug Abuse Patient Records regulations: The Federal rules restrict any use of the information to criminally investigate or prosecute any alcohol or drug abuse patient.[facility] Goals (unrecognized section and content) Goals may [...] BE BASED ON THE PRIMARY CLINICAL RECORDS. [facility] [employer] [facility]. provides no warranty or guarantee of the accuracy or completeness of [phone] in [phone] [id number]
[2024-09-26 09:40] LABS: Estimated Average Glucose 166 mg/dL; Glycohemoglobin A1C 7.4 % (4.5-6.2)
== END 2024-09-26 08:20 | disposition home or self-care (01) ==
PROVIDERS: PCP Internal Medicine
DX: E10.29 Type 1 diabetes mellitus with other diabetic kidney complication (principal)
CPT/HCPCS: 36415; 83036

== ENCOUNTER 2024-10-11 19:24 | Inpatient (IN) | payer MEDICARE, OTHER, SELFPAY ==
--- OUTSIDE RECORDS SUMMARY | 2024-09-29 10:39 | XMS_ITS | Encounter Summary ---
Author Organization [facility] Address [address] [place] [address] Care Team Providers Care Pipe Insulator Name Role Phone Harley Goodman DO Primary Care Provider [phone] Reason for Visit * Auth/Cert (Routine) Specialty Diagnoses / Procedures Referred By Twyla t Referred To Contact Diagnoses Lesion of bladder Lesion of bladder [N32.9] Procedures AL CYSTOURETHROSCOPY W/DEST &/RMVL MED BLADDER MARIO TURBT (TRANSURETHRAL RESECTION OF BLADDER TUMOR) Last Mcmanus MD [address] [place] [address] [address] [place] [address] Phone: tel: fax: [facility] Main Operating Room [address] [place] [address] Phone: tel: fax: Referral ID Status Reason Start Date Expiration Date Visits Re quested Visits Authorized [id number] 1 1 Encounter Details Date Type Department Care Team (Latest Contact Info) Description 09/29/2024 10:39 AM EDT - 09/29/2024 9:00 PM EDT Hospital Encounter [facility] Main Operating Room [address] [place] [address] Last Mcmanus MD [address] [place] [address] [place] [address] Lesion of bladder Discharge Disposition: Home or Self Care () Social History Tobacco Use Types Packs/Day Years Used Date Smoking Tobacco: Former Cigarettes Smokeless Tobacco: Never Alcohol Use Standard Drinks/Week Comments Never 0 (1 standard drink = 0.6 oz pur e alcohol) [facility] Utilities Answer Date Recorded In the past [...] time in the past 12 m [facility], were you homeless or living in a penitentiary (including now)? No 08/13/2024 Hunger Vital Sign [...] Sign Reading Time Taken Comments Blood Pressure 147/61 09/29/2024 8:44 PM EDT Pulse 90 09/29/2024 8:46 PM EDT Temperature 36 C (96.8 F) 09/29/2024 6:30 PM EDT Respiratory Rate 23 09/29/2024 8:46 PM EDT Oxygen Saturation 99% 09/29/2024 8:46 PM EDT Inhaled Oxygen Concentration - - Weight 83.4 kg (183 lb 13.8 oz) 025 11:06 AM EDT Height 170.2 cm (5' 7 ) 09/29/2024 11:0 6 AM EDT Body Mass Index 28.8 09/29/2024 11:06 AM EDT documented in this encounter Discharge Instructions * Attachments The following attachments cannot be sent through Care Everywhere. * Transurethral Resection of the Prostate Care After (Palestinian) * Indwelling Urinary Catheter Bag Care Adult (Palestinian) * Indwelling Urinary Catheter Insertion Care After (Palestinian) * Indwelling Urinary Catheter Skin Care Adult (Palestinian) documented in this encounter Medications at Time of Discharge ALPRAZolam (Xanax) 0.5 mg tablet Take 1 tablet by mouth in the morning, afternoon, and at bedtime. amLODIPine (Norvasc) 5 mg tabletIndications :Hypertension, unspecified type Take 1 tablet (5 mg) by mouth in the morning. 90 tablet 3 09/07/2024 aspirin 81 mg chewable tablet Chew 1 [...] and with evening meal. Sliding scale insulin degludec (TRESIBA FLEXTOUCH U-100 SUBQ) Inject 15 Units under the skin in the morning. insulin detemir (Levemir) 100 unit/mL injection Inject 5 Units under the skin two times daily. SLIDING SCALE levoFLOXacin (Levaquin) 250 mg tablet 08/27/2024 pantoprazole (ProtoNix) 40 mg EC tablet TAKE 1 TABLET BY MOUTH DAILY ON AN EMPTY STOMACH FOLLOWED BY BREAKFAST 30 MINUTES AFTER 07/17/2022 ranolazine (Ranexa) 500 mg 12 hr tabletIndications :NSTEMI (non-ST elevated myocardial infarction) (CMS/HCC) Take 1 tablet (500 mg) by mouth two times daily. Do not crush, chew, or split. 180 tablet 3 03/19/2024 rosuvastatin (Crestor) 40 mg tabletIndications :NSTEMI (non-ST elevated myocardial infarction) (CMS/HCC) TAKE 1 TABLET BY MOUTH AT BEDTIME 90 tablet 3 01/12/2024 spironolactone (Aldactone) 25 mg tabletIndications :NSTEMI (non-ST elevated myocardial infarction) (CMS/HCC) Take 1 tablet (25 mg) by mouth in the morning. 90 tablet 3 01/16/2024 thiamine (Vitamin B-1) 100 mg tablet Take 100 mg by mouth every other day. thiamine (Vitamin B-1) 250 mg tablet Take 250 mg by mouth every other day. isosorbide mononitrate ER (Imdur) 60 mg 24 [...] tablet 02/15/2024 nitroglycerin (Nitrostat) 0.4 mg SL tabletIndications :Chest pain, unspecified type PLACE 1 TABLET UNDER TONGUE EVERY 5 MINS, UP TO 3 DOSES NEEDED FOR CHEST PAIN 90 tablet 2 01/31/2024 documented as of this encounter Progress Notes * Lats Mcmanus MD - 09/29/2024 7:14 AM EDT H&P reviewed. The patient was examined and there are no changes to the H&P. documented in this encounter H&P Notes * Marquis Baltazar MD - 09/29/2024 1:15 PM EDT Interval update History and physical from 09/25/24 reviewed. There are no changes. No acute issues. Patient examined. Patient Vitals for the past 24 hrs: BP Temp Temp src Pulse Resp SpO2 Height Weight 09/29/24 1106 142/73 36 ??C (96.8 ??F) Temporal 81 18 99 % 1.702 m (5' 7 ) 83.4 kg (183 lb 13.8 oz) Heart rate regular No increased work of breathing. There has been no change to the plan. Marquis Baltazar MD 09/29/2024 Cosigned by Last Mcmanus MD at 09/30/2024 9:27 AM EDT Associated attestation - Last Mcmanus MD - 09/30/2024 9:27 AM EDT By using the attestations below, the signing clinician agrees that I have read and verify that thedocumentation has been personally reviewed by me and ensure that the documentation accurately reflects the encounter. GC: I personally saw this patient on the day of the encounter, performed the lisa portion(s) of the service and participated in the management and confirm the resident's documentation. Please note there may be an additional personal documentation from me. Source Note - iWll Pepe CNP - 09/25/2024 9:00 AM EDT Images from the original note were not included. Pre-Anesthesia Clinic 09/25/24 Pt presents for Pre Anesthesia Clinic visit with son. Pt is scheduled 09/29/[address] Mcmanus to under go procedure: TURBT under General on 09/29/24. Harley Goodman, DO [address] [facility] [address] [facility]/pharm[facility][id number] - [place], [place] - [address] [facility] [address] [facility] [address] [facility] - [place], [place] - [address] [place] [address] [place] [address] [facility] [address] Subjective Vitals: 09/25/24 0856 BP: 153/74 Pulse: 80 Resp: 18 Temp: 36.3 ??C (97.4 ??F) SpO2: 98% Allergies[1] Medication Documentation Review Audit Reviewed by Shannon Mi MA (Worm Raiser) on 08/28/24 at 0832 Medication Order Taking? Sig Documenting Provider Last Dose Status ALPRAZolam (Xanax) 0.5 mg tablet [id number] Take 1 tablet by mouth in the morning, afternoon, and at bedtime. Racquel Marcelo MD Active amLODIPine (Norvasc) 5 mg tablet [id number] Take 1 tablet (5 mg) by mouth in the morning for 30 doses. Graeme Sorensen MD Active aspirin 81 mg chewable tablet [id number] Chew 1 tablet every day by oral route. Racquel Marcelo MD Active cholecalciferol (Vitamin D3) 25 MCG (1000 units) tablet [id number] Take 1,000 Units by mouth in the morning. Racquel Marcelo MD Active clopidogrel (Plavix) 75 mg tablet [id number] Take 1 tablet by mouth in the morning. Racquel Marcelo MD Active docusate sodium (Colace) 100 mg capsule [id number] Take 100 mg by mouth in the morning. Racquel Marcelo MD Active empagliflozin (Jardiance) 10 mg [id number] Take 1 tablet every day by oral route. Racquel ProviderMD Active insulin aspart (NovoLOG) 100 unit/mL injection vial [id number] Inject 10 Units under the skin with breakfast, with lunch, and with evening meal. Sliding scale Racquel Marcelo MD Active insulin detemir (Levemir) 100 unit/mL injection [id number] Inject 5 Units under the skin two times daily. Racquel Marcelo MD Active isosorbide mononitrate ER (Imdur) 60 mg 24 hr tablet [id number] Take 1 tablet (60 mg) by mouth 2 times daily. Carlos A Duarte MD 08/20/242358 metoprolol succinate XL (Toprol-XL) 50 mg 24 hr tablet [id number] Take 3 tablets (150 mg) by mouth inthe morning for 97 doses. Do not crush or chew. Cheryl Albrecht MD 08/20/242358 nitroglycerin (Nitrostat) 0.4 [address] SL tablet [id number] PL[address] 1 TABLET UNDER TONGUE EVERY 5 MINS, UP TO3 DOSES NEEDED FOR CHEST PAIN Pinky Bishop MD Active pantoprazole (ProtoNix) 40 mg EC tablet [id number] TAKE 1 TABLET BY MOUTH DAILY ON AN EMPTY STOMACH FOLLOWED BY BREAKFAST 30 MINUTES AFTER Historical ProviderMD Active ranolazine (Ranexa) 500 mg 12 hr tablet [id number] Take 1 tablet (500 mg) by mouth two times daily. Do not crush, chew, or split. Pinky Bishop MD Active rosuvastatin (Crestor) 40 mg tablet [id number] TAKE 1 TABLET BY MOUTH AT BEDTIME Kevin Jacobs MD Active spironolactone (Aldactone) 25 mg tablet [id number] Take 1 tablet (25 mg) by mouth in the morning. Pinky Bishop MD Active thiamine (Vitamin B-1) 100 mg tablet [id number] Take 100 mg by mouth every other day. Historical ProviderMD Active thiamine (Vitamin B-1) 250 mg tablet [id number] Take 250 mg by mouth every other day. Historical Provider, Active Immunization History Administered Date(s) Administered Influenza Whole 01/19/2008 Influenza, High Dose Seasonal, Preservative Free 01/16/2017 Influenza, Seasonal, Quadrivalent, Adjuvanted 12/15/2021 Influenza, injectable, quadrivalent, preservative free 11/30/2016 Influenza, seasonal, injectable 12/13/2010, 01/23/2012 Influenza, trivalent, adjuvanted 01/17/2018 Novel [id number], preservative-free 01/27/2009 Pfizer SARS-CoV-2 Vaccination 05/30/2020, 06/21/2020, [...] Pt reports had recent labs done at [facility]. PAC - RN to obtain results [...] CAD, HTN, HLD,Bladder Ca, CKD, DM, GERD, AFOGNAK, arthritis PSH: Pacer/AICD placed 02/21; CABG x [...] 08/28/2024 35.9 (L) >60.0 mL/min/1.73m*2 Final [facility]???s estimated glomerular filtration rate (eGFR) will no [...] Bubble Study Result Date: 08/14/2024 1 1 [facility] Heart Station [address] [place] [address] [phone] (fax) Echocardiogram-[facility] Name: LANI LIZMAA Study Date: 08/14/2024 08:33 AM B/P: 118 mmHg/75 mmHg HR: 75 bpm Date of : 1950 Location: [facility] Height: 67 in. Age: 73 year(s) [...] No pericardial effusion. Procedure Staff Reading Group: [facility] Medical Oncology Physician: MASTER Ortega, RDCS Ordering Physician: TATIANNA HAYWARD Wall Motion Scores -1 - hyperkinesia, 0 - not evaluated, 1 - normal, 2 - hypokinesia, 3 - akinesia, 4 - dyskinesia Transthoracic echo (TTE) complete Result Date: 02/13/2024 1 1 [facility] Heart Station [address] [place] [address] [phone] (fax) Echocardiogram-[facility] Name: LANI LIZAMA Study Date: 02/13/2024 03:21 PM B/P: 125 mmHg/83 mmHg HR: 57 bpm Date of : 1950 Location: [facility] Height: 67 in. Age: 73 year(s) [...] reviewed the examination Procedure Staff Reading Group: [place] [facility] Group[facility]erring Physician: JAYSHREE HERNANDEZ Medical Oncology Physician: SHYANNE Wadsworth Ordering Physician: Christian Bergman MD Wall Motion Scores -1 -hyperkinesia, 0 - not evaluated, 1 - normal, 2 - hypokinesia, 3 - akinesia, 4 - dyskinesia Complete Echo (TTE) w/wo Imaging Agent, Strain, 3D, Bubble Study Result Date: 09/27/2023 1 1 [facility] Heart Station [address] [place] [address] [phone] (fax) Echocardiogram-[facility] Name: LANI LIZAMA Study Date: 09/27/2023 07:42 AM B/P: 118 mmHg/57 mmHg HR: 84 bpm Date of : 1950 Location: [facility] Height: 67 in. Age: 72 year(s) [...] No pericardial effusion. Procedure Staff Reading Group: [facility] Physician: MASTER Ortega, RDCS Ordering Physician: DEJUAN POPE Wall Motion Scores -1 - hyperkinesia, 0 - not evaluated, 1 - normal, 2 - hypokinesia, 3 - akinesia, 4 - dyskinesia Encounter Date: 08/13/24 ECG 12 lead Result Value Ventricular Rate 86 Atrial Rate 86 AL Interval 154 QRS DURATION 144 QT Interval 424 QTC CALCULATION(BAZETT) 507 P [place] 37 R-[place] -56 T Wave [place] 114 Impression Atrial-sensed ventricular-paced rhythm Biventricular pacemaker [...] significant pain. He was therefore referred to [facility] where he underwent a cystoscopy with [...] this he was a 20-year, 2 pack/day ([id number]) smoker Gross hematuria status post cystoscopy with cytology and biopsy of 2 x 2 x 2 posterior wall bladderlesion seen on CT report from [facility] dated 07/30/2024 Will require formal staging cystoscopy [...] 3 Mallampati: ll Media Information Document Information [facility] Clinical: Clinical Unknown 09/25/2024 09:04 Attached To: Pre-Admission Testing on 09/25/24 with PRE-ANESTHESIA CLINIC ROOM Source Information Will Pepe CNP [facility] Pac Document History Media Information Document Information [facility] Clinical: Clinical Unknown 09/25/2024 09:04 Attached To: Pre-Admission Testing on 09/25/24 with PRE-ANESTHESIA CLINIC ROOM Source Information Will Pepe CNP [facility] Pac Document History Objective Physical Exam [...] Plan Pending obtaining preop labs done at [facility] Pt recent Hgb AIC 08/03/24: 6.1, office to fax results to [facility] - [facility] If no acute issues this patient may Return for Procedure as scheduled Will Pepe CNP [1] No Known Allergies [2] Patient Active Problem List Diagnosis Coronary artery disease involving [place] coronary artery of [place] heart Type 1 diabetes mellitus (CMS/HCC) Essential hypertension Gastroesophageal reflux disease History of coronary artery bypass surgery Increased immunoglobulin Irritable bowel syndrome Mixed hyperlipidemia Monoclonal gammopathy Nausea Overweight with body mass index (BMI) 25.0-29.9 Right lower quadrant abdominal pain Spondylosis of lumbar spine Chronic kidney disease Stenosis of abdominal aorta Type 2 diabetes mellitus without complication, with long-term current use of insulin ([facility]) AV block, 3rd degree ([facility]) Age-related nuclear cataract of both eyes Blepharitis of upper and lower eyelids of both eyes Dry eyes 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 edema associated with type 1 diabetes mellitus ([facility]/HCC) NSTEMI (non-ST elevated myocardial infarction) ([facility]) Acute on chronic systolic heart failure, NYHA class 3 (CMS/HCC) HFrEF (heart failure with reduced ejection fraction) ([facility]) Angina at rest Dietary counseling and surveillance CHRYSTAL (generalized anxiety disorder) Ground glass opacity present on imaging of lung Hypoxia Pulmonary nodule Secondary hyperparathyroidism Type 2 diabetes mellitus with hyperglycemia ([facility]/HCC) Moderate nonproliferative diabetic retinopathy of left eye (CMS/HCC) Severe nonproliferative diabetic retinopathy associated with type [...] CORONARY STENT PLACEMENT documented in this encounter Miscellaneous Notes * Op Note - Last Mcmanus MD - 09/29/2024 1:37 PM EDT TURBT (TRANSURETHRAL RESECTION OF BLADDER TUMOR) Operative Note Date: 09/29/2024 Location: [facility] OR Name: Lani Lizama, : 1950, Diagnosis Pre-op Diagnosis * Lesion of bladder [N32.9] Post-op Diagnosis * Lesion of bladder [N32.9] Procedures TURBT (TRANSURETHRAL RESECTION OF BLADDER TUMOR) 43712 - AL CYSTOURETHROSCOPY W/DEST &/RMVL MED BLADDER MARIO Surgeons Primary: Last Mcmanus MD Resident - Assisting: Marquis Baltazar MD Procedure Summary Anesthesia: General ASA: III Estimated Blood Loss: None Total IV Fluids: See anesthesia notes mL Drains: Urethral Catheter Latex 16 Fr. (Active) Site Assessment Clean;Skin intact 09/29/24 1513 Collection Container Standard drainage bag 09/29/24 1513 Securement Method Securing device (Describe) 09/29/24 1513 Reason for Continuing Urinary Catheterization /rectal surgery 09/29/24 1513 Specimens ID Source Type Tests Collected By Collected At Frozen? Priority Lab ID A Urine Urine NON-PER DIEM PHYSICAL THERAPIST CYTOLOGY - CELLULAR EXAM Last Mcmanus MD 09/29/24 1415 B Urinary Bladder Tissue HISTOLOGY - TISSUE EXAM Last Mcmanus MD 09/29/24 1432 No [id number] Description: Bladder Tumor Staff: Business Services Specialist Sales: Destiney Whitney RN; Juli Byrnes; Ani Floyd RN Indications: Lani Lizama is an 73 y.o. male who is having surgery for Lesion of bladder [N32.9]. Patient was initially admitted for myocardial infarction. Underwent a CT abdomen pelvis without finding a small lesion located on the left posterior wall of the bladder. As result patient was consented for cystoscopy with transurethral resection of the prostate Procedure Details: The patient was seen in the preoperative area. The risks, benefits, complications, treatment options, non-operative alternatives, expected recovery and outcomes were discussed with the patient. The possibilities of reaction to medication, pulmonary aspiration, injury to surrounding structures, bleeding, recurrent infection, the need for additional procedures, failure to diagnose a condition, and creating a complication requiring transfusion or operation were discussed with the patient. The patient concurred with the proposed plan, giving informed consent. The site of surgery was properly noted/marked if necessary per policy. The patient has been actively warmed in preoperative area. Preoper ative antibiotics have been ordered and given within 1 hours of incision. Venous thrombosis prophylaxis have been ordered including bilateral sequential compression devices Patient was brought back to operating room, laid in supine position. EPC cuffs were placed on and functioning prior to induction of anesthesia. Antibiotics were administered. GETA was administered. Patient was positioned in dorsolithotomy position and genitals were prepped and draped in sterile fashion. Time out was performed. We placed visual obturator scope within the urethra and into the bladder. A england-cystoscopy was performed and showed tumor at the: Left lateral wall of the bladder. We switched to a resectoscope. We then resected the tumor systematically until we reached the stalk. We resected al visible tumor and deep enough to incorporate muscle into the specimen. We then obtained slime quate hemostasis. is concluded the case. He tolerated the procedure well. We decided to place a orellana catheter in place. We will still postop send need to be discharged Orellana catheter placed instructed to follow-up in 1 to 2 days for void trial Plan/Follow up: Patient will follow-up in 1 to 2 days for void trial Patient will follow-up in 2 to 3 weeks for discussion of performing Findings: 2.5 cm mass along the left lateral wall 16 Martiniquais Orellana catheter placed Gemcitabine to perform given postop. Complications: None; patient tolerated the procedure well. Disposition: PACU - hemodynamically stable. Condition: stable Last Mcmanus . Procedure Attestation Level of Attending Supervision for Procedure I was present for the entire procedure documented in this encounter Plan of Treatment Upcoming Encounters Date Type Department Care Team (Latest Contact Info) Description 11/11/2024 8:30 AM EDT Hospital Encounter [facility] Main Operating Room [address] [place] [address] Last Mcmanus MD [address] [place] [address] [place] [phone] 095- 11/11/2024 8:30 AM EDT - 11/11/2024 10:00 AM EDT Surgery [facility] Main Operating Room [address] [place] [address] Last Mcmanus MD [address] [place] [address] [place] [address] TURBT (TRANSURETHRAL RESECTION OF BLADDER TUMOR) [67694 (CPT )] Scheduled Procedures Name Priority Associated Diagnoses Date/Ti mn TURBT (TRANSURETHRAL RESECTION OF BLADDER TUMOR) Malignant neoplasm of urinary bladder, unspecified site (CMS/HCC) 11/11/2024 8:30 AM EDT documented as of this encounter Procedures Procedure Name Priority Date/Time Associated Diagnosis Comments POCT GLUCOSE METER UNSOLICITED RESULTS Routine 09/29/2024 3:04 PM EDT HISTOLOGY - TISSUE EXAM Routine 09/30/19 2:32 PM EDT Lesion of bladder NON-PER DIEM PHYSICAL THERAPIST CYTOLOGY - CELLULAR EXAM Routine 09/29/2024 2:15 PM EDT Lesion of bladder AL CYSTOURETHROSCOPY W/DEST &/RMVL MED BLADDER MARIO 09/29/2024 1:37 PM EDT Lesion of bladder POCT GLUCOSE METER UNSOLICITED RESULTS Routine 09/29/2024 11:12 AM EDT documented in this encounter Results * (ABNORMAL) POCT glucose meter (09/29/2024 3:04 PM EDT) Glucose POC 143(H) 70 - 105 mg/dL 09/29/2024 3:16 PM EDT [facility] ([facility]) Comment:[email or web address] Blood Capillary blood specimen / Unknown 09/29/2024 3:04 PM EDT 09/29/2024 3:15 PM EDT Narrative [facility] ([facility]) - 09/29/2024 3:16 PM EDT Waived Testing in the ED is performed under the ED CLIA certificate #[id number]. us Last Mcmanus MD LAB BLOOD ORDERABLES Final Resul t [facility] ([facility]) [address] [place] [address] * Histology - tissue exam (09/29/2024 2:32 PM EDT) Case Report Surgical Pathology Case: [id number] Authorizing Provider: Last Mcmanus MD Collected: 09/29/2024 1432 Ordering Location: [facility] Main Operating Room Received: 09/29/2024 1514 Pathologist: Kevin Dawson MD Specimen: Urinary Bladder, Bladder Tumor 10/05/2024 11:05 AM EDT [facility] ([facility]) Final Diagnosis A. Bladder tumor, transurethral resection: - Invasive high-grade papillary urothelial carcinoma. - Small fragments of muscularis propria present, uninvolved by neoplasm. - See synoptic report. 10/05/2024 11:05 AM EDT [facility] ([facility]) at 1104 EDT Preliminary Diagnosis 10/05/2024 11:05 AM EDT [facility] ([facility]) Clinical Information Post-Op Diagnoses N32.9 - Lesion of bladder [ICD-10-CM] 10/05/2024 11:05 AM T [facility] ([facility]) Comment This case was reviewed in intradepartmental consensus with agreement of the diagnosis. 10/05/2024 11:05 AM T [facility] ([facility]) Gross Description A. Urinary Bladder. The specimen is received in formalin labeled Lani Mega and bladder tumor. It consists of a 2.7 x 2.5 x 0.6 cm aggregate of red-pink to vázquez-brown, rubbery, shaggy fragments of soft tissue. The specimen is entirely submitted in 3 cassettes. Sangeetha Muro, Pathologists' Sleeve Tailor student Hugo Suárez, Pathologists' Sleeve Tailor 10/05/2024 11:05 AM [facility] ([facility]) Microscopic Description Microscopic examination performed. 10/05/2024 11:05 AM T [facility] ([facility]) Synoptic Checklist URINARY BLADDER: Biopsy and Transurethral Resection of Bladder Tumor (TURBT) URINARY BLADDER: BIOPSY AND TRANSURETHRAL RESECTION OF BLADDER TUMOR (TURBT) - All Specimens Protocol posted: 12/19/2022 SPECIMEN Procedure: Transurethral resection of bladder (TURBT) TUMOR Tumor Site: Left lateral wall Histologic Type: Urothelial carcinoma, invasive (conventional) Histologic Grade: High-grade Tumor Extent: Invades lamina propria (subepithelial connective tissue) Lymphatic and / or Vascular Invasion: Not identified Muscularis Propria (detrusor muscle): Present in specimen 10/05/2024 11:05 AM T [facility] ([facility]) Tissue Urinary bladder structure / Unknown 09/29/2024 2:32 PM EDT 09/29/2024 3:14 PM EDT Comment:Pre-op diagnosis: Lesion of bladder [N32.9] us Obi Marietta LEMUS LAB PATHOLOGY ORDERABLES Final R esult [facility] ([facility]) [address] [place] [address] * Non-obstetrician and gynaecologist cytology - cellular exam (09/29/2024 2:15 PM EDT) Case Report Non-gynecologic Cytology Case: [id number] Authorizing Provider: Last Mcmanus MD Collected: 09/29/2024 1415 Ordering Location: [facility] Main Operating Room Received: 09/30/2024 0804 Pathologist: Omarya Sullivan MD Specimen: Urine 10/01/2024 6:05 PM EDT [facility] ([facility]) Final Diagnosis A. Urine, cystoscopic: - Atypical urothelial cells. - Marked acute inflammation. 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 10/01/2024 6:05 PM EDT [facility] ([facility]) at 1805 EDT Comment See also concurrent surgical case, [id number]. 10/01/2024 6:05 PM EDT [facility] ([facility]) Microscopic Description Satisfactory for evaluation. Examination of the ThinPrep slide reveals atypical cells, urothelial cells, abundant acute inflammation, blood, fungal spores consistent with Coretta species and debris. 10/01/2024 6:05 PM EDT [facility] ([facility]) Clinical Information Post-Op Diagnoses N32.9 - Lesion of bladder [ICD-10-CM] 10/01/2024 6:05 PM EDT [facility] ([facility]) Gross Description 80 mL clear, yellow fluid 10/01/2024 6:05 PM EDT [facility] ([facility]) Urine Urine specimen / Unknown 09/29/2024 2:15 PM EDT 09/30/2024 8:04 AM EDT Comment:Pre-op diagnosis: Lesion of bladder [N32.9] us Last Mcmanus MD LAB CYTOLOGY ORDERABLES Final Re sult [facility] ([facility]) [address], [place] [id number] * (ABNORMAL) POCT glucose meter (09/29/2024 11:12 AM EDT) Glucose POC 211(H) 70 - 105 mg/dL 09/29/2024 11:24 AM EDT [facility] ([facility]) Comment:[email or web address] Blood Capillary blood specimen / Unknown 09/29/2024 11:12 AM EDT 09/29/2024 11:23 AM EDT Narrative [facility] ([facility]) - 09/29/2024 11:24 AM EDT Waived Testing in the ED is performed under the ED CLIA certificate #[id number]. us Last Mcmanus MD LAB BLOOD ORDERABLES Final Resul t [facility] ([facility]) [address] [place] [address] documented in this encounter Visit Diagnoses Diagnosis Lesion of bladder- Primary Unspecified disorder of bladder Malignant neoplasm of urinary bladder, unspecified site (CMS/HCC) documented in this encounter Admitting Diagnoses Diagnosis Lesion of bladder Unspecified disorder of bladder documented in this encounter Administered Medications Inactive Administered Medications - up to 3 most recent administrations Medication Order MAR Action Action Date Dose Rate Site fentaNYL (Sublimaze) injection 25 mcg 25 mcg, intravenous, Once, On Sat09/29/24 at 1515, For 1 dose, Recovery (only) Given 09/29/2024 4:47 PM EDT 25 mcg gemcitabine (Gemzar) 2,000 mg, sodium chloride 50 mL in sodium chloride 0.9 % 100 mL intravesicular syringe 2,000 mg, intravesical, Once, On Sat09/29/24 at 1430, For 1 dose, Recovery (only), HAZARDOUS AGENT - Use appropriate precautions for handling and disposal. Irritant New Bag 09/29/2024 4:00 PM EDT 2,000 mg lactated Ringer's infusion 30 mL/hr, intravenous, Continuous, Starting on Sat09/29/24 at 1115, For 99 days, Preprocedure, Indication: Perioperative hydration Continued by Anesthesia 09/29/2024 1:37 PM EDT 30 mL/hr 30 mL/hr New Bag 09/29/2024 11:15 AM EDT 30 mL/hr 30 mL/hr lactated Ringer's infusion 30 mL/hr, intravenous, Continuous, Starting on Sat09/29/24 at 1530, For 99 days, Preprocedure, Indication: Preoperative fluids lidocaine HCl (Xylocaine) 10 mg/mL (1 %) injection 2 mg 2 mg (0.2 mL), infiltration, Once as needed, for IV start, if patient not allergic to lidocaine, Starting on Sat09/29/24 at 1514, For 1 day, Preprocedure ondansetron HCl (PF) (Zofran) injection 4 mg 4 mg, intravenous, Once as needed, nausea, vomiting, Starting on Sat09/29/24 at 1500, For 1 dose, Recovery & On Unit, Use ondansetron first and then use prochlorperazine if ondansetron is ineffective. Administer as an IV push over 2 to 5 minutes. prochlorperazine (Compazine) injection 2.5 mg 2.5 mg, intravenous, Once as needed, vomiting, nausea, use if ondansetron ineffective, Starting on Sat09/29/24 at 1500, For 1 dose, Recovery & On Unit, Use ondansetron first and then use prochlorperazine if ondansetron is ineffective. sodium chloride flush 10 mL 10 mL, intravenous, Every 8 hours PRN, line care, Starting on Sat09/29/24 at 1103, For 99 days, Preprocedure sodium chloride flush 10 mL 10 mL, intravenous, Every 8 hours PRN, line care, Starting on Sat09/29/24 at 1514, For 99 days, Preprocedure documented in this encounter Active and Recently Administered Medications Times are shown in EDT. Scheduled Medication Order 09/27/2024 09/28/2024 09/29/2024 ceFAZolin in dextrose (iso-os) (Ancef) IVPB 2 g (COMPLETED) 2 g, intravenous, at 100 mL/hr, Administer over 30 Minutes, Once, On Sat09/29/24 at 1115, For 1 dose, Preprocedure, Administer within 60 minutes of incision. Duplex bag - activate before hanging., Suspected Indication (Select all that apply): Surgical Prophylaxis 1337 (Given - Provid er: Rossi Beach MD)1459 (Anesthesia Volume Adjustment - Provider: Rossi Beach MD) fentaNYL (Sublimaze) injection 25 mcg (COMPLETED) 25 mcg, intravenous, Once, On Sat09/29/24 at 1515, For 1 dose, Recovery (only) 1647 (Given - Provid er: Rosi Kaiser RN) gemcitabine (Gemzar) 2,000 mg, sodium chloride 50 mL in sodium chloride 0.9 % 100 mL intravesicular syringe (COMPLETED) 2,000 mg, intravesical, Once, On Sat09/29/24 at 1430, For 1 dose, Recovery (only), HAZARDOUS AGENT - Use appropriate precautions for handling and disposal. Irritant 1600 (New Bag - Prov ider: Rosi Kaiser RN - Comment: Dr. Baltazar at bedside) Continuous Medication Order 09/27/2024 09/28/2024 09/29/2024 lactated Ringer's infusion 30 mL/hr, intravenous, Continuous, Starting on Sat09/29/24 at 1115, For 99 days, Preprocedure, Indication: Perioperative hydration 1115 (New Bag - Prov ider: Judy Avila RN)1337 (Continued by Anesthesia - Provider: Rossi Beach MD)1424 (Canceled Entry - Provider: Rossi Beach MD)1459 (Anesthesia Volume Adjustment - Provider: Rossi Beach MD)2316 (Due: Order Ending - Provider: Automatic Discharge Provider - Comment: [Order ends at this time. Document the following action when infusion is complete: Stopped]) lactated Ringer's infusion 30 mL/hr, intravenous, Continuous, Starting on Sat09/29/24 at 1530, For 99 days, Preprocedure, Indication: Preoperative fluids 1530 (Canceled Entry - Provider: Automatic Discharge Provider - Comment: Automatically canceled at discontinue of medication order) PRN Medication Order 09/27/2024 09/28/2024 09/29/2024 lidocaine (Uro Jet-Glydo) 2 % gel (CANCELED) As needed, Starting on Sat09/29/24 at 1426, Intraprocedure 1426 (Given - Provid er: Last Mcmanus MD) lidocaine HCl (Xylocaine) 10 mg/mL (1 %) injection 2 mg 2 mg (0.2 mL), infiltration, Once as needed, for IV start, if patient not allergic to lidocaine, Starting on Sat09/29/24 at 1514, For 1 day, Preprocedure ondansetron HCl (PF) (Zofran) injection 4 mg 4 mg, intravenous, Once as needed, nausea, vomiting, Starting on Sat09/29/24 at 1500, For 1 dose, Recovery & On Unit, Use ondansetron first and then use prochlorperazine if ondansetron is ineffective. Administer as an IV push over 2 to 5 minutes. prochlorperazine (Compazine) injection 2.5 mg 2.5 mg, intravenous, Once as needed, vomiting, nausea, use if ondansetron ineffective, Starting on Sat09/29/24 at 1500, For 1 dose, Recovery & On Unit, Use ondansetron first and then use prochlorperazine if ondansetron is ineffective. sodium chloride flush 10 mL(Linked Group 1) 10 mL, intravenous, Every 8 hours PRN, line care, Starting on Sat09/29/24 at 1103, For 99 days, Preprocedure sodium chloride flush 10 mL(Linked Group 2) 10 mL, intravenous, Every 8 hours PRN, line care, Starting on Sat09/29/24 at 1514, For 99 days, Preprocedure Linked Groups Order Group 1: Insert peripheral IV (CANCELED) Once, On Sat09/29/24 at 1104, For 1 occurrence, Preprocedure And Saline lock IV (CANCELED) Once, On Sat09/29/24 at 1104, For 1 occurrence, Preprocedure And sodium chloride flush 10 mLJump to med 10 mL, intravenous, Every 8 hours PRN, line care, Starting on Sat09/29/24 at 1103, For 99 days, Preprocedure Group 2: Insert peripheral IV (CANCELED) Once, On Sat09/29/24 at 1515, For 1 occurrence, Preprocedure And Saline lock IV (CANCELED) Once, On Sat09/29/24 at 1515, For 1 occurrence, Preprocedure And sodium chloride flush 10 mLJump to med 10 mL, intravenous, Every 8 hours PRN, line care, Starting on Sat09/29/24 at 1514, For 99 days, Preprocedure documented in this encounter Care Teams Pipe Insulator Relationship Specialty Start Date End Date Harley Goodman DO [address] [place] [address] PCP - General 03/02/22 documented as of this encounter
--- OUTSIDE RECORDS SUMMARY | 2024-09-29 12:30 | XMS_ITS | Encounter Summary ---
Author Organization [facility] Address [address] [place] [address] Care Team Providers Care Photocopy Operator Name Role Phone Harley Goodman DO Primary Care Provider Reason for Visit * Auth/Cert (Routine) Specialty Diagnoses / Procedures Referred By Twyla mejia Referred To Contact Diagnoses Lesion of bladder Lesion of bladder [N32.9] Procedures OR CYSTOURETHROSCOPY W/DEST &/RMVL MED BLADDER MARIO TURBT (TRANSURETHRAL RESECTION OF BLADDER TUMOR) Last Mcmanus MD [address] [place] [address] [address] [place] [address] Phone: tel: fax: [facility] Main Operating Room [address] [place] [address] Phone: tel: fax: Referral ID Status Reason Start Date Expiration Date Visits Re quested Visits Authorized [id number] 1 1 Encounter Details Date Type Department Care Team (Late st Contact Info) Description 09/29/2024 12:30 PM EDT - 09/29/2024 2:00 PM EDT Surgery [facility] Main Operating Room [address] [place] [address] Last Mcmanus MD [address] [place] [address] [place] [address] TURBT (TRANSURETHRAL RESECTION OF BLADDER TUMOR) [71959 (CPT )] Social History Tobacco Use Types Packs/Day Years Used Date Smoking Tobacco: Former Cigarettes Smokeless Tobacco: Never Alcohol Use Standard Drinks/Week Comments Never 0 (1 standard drink = 0.6 oz pur e alcohol) [facility] Utilities Answer Date Recorded In the [...] time in the past 12 m [facility], were you homeless or living [...] Sign Reading Time Taken Comments Blood Pressure 142/73 09/29/2024 11:06 AM EDT Pulse 81 09/29/2024 11:06 AM EDT Temperature 36 C (96.8 F) 09/29/2024 11:06 AM EDT Respiratory Rate 18 09/29/2024 11:0 6 AM EDT Oxygen Saturation 99% 09/29/2024 11: 06 AM EDT Inhaled Oxygen Concentration - - Weight 83.4 kg (183 lb 13.8 oz) 025 11:06 AM EDT Height 170.2 cm (5' 7 ) 09/29/2024 11:0 6 AM EDT Body Mass Index 28.8 09/29/2024 11:06 AM EDT documented in this encounter Discharge Instructions * Attachments The following attachments cannot be sent through Care Everywhere. * Transurethral Resection of the Prostate Care After (Tunisian) * Indwelling Urinary Catheter Bag Care Adult (Tunisian) * Indwelling Urinary Catheter Insertion Care After (Tunisian) * Indwelling Urinary Catheter Skin Care Adult (Tunisian) documented in this encounter Medications at Time [...] as of this encounter Progress Notes * Last Mcmanus MD - 09/29/2024 7:14 AM EDT [...] personal documentation from me. Source Note - Will Pepe CNP - 09/25/2024 9:00 AM EDT Images from the original note were not included. Pre-Anesthesia Clinic 09/25/24 Pt presents for Pre Anesthesia Clinic visit with son. Pt is scheduled 09/29/[address] Mcmanus to under go procedure: TURBT under General on 09/29/24. Harley Goodman, DO [address] [facility] [address] [id number] - [place] - [address] [facility] [address] [facility] [address] [facility] - [place], [place] - [address] [place] [address] [place] [address] [facility] [address] Subjective Vitals: 09/25/24 0856 BP: 153/74 Pulse: 80 Resp: 18 Temp: 36.3 ??C (97.4 ??F) SpO2: 98% Allergies[1] Medication Documentation Review Audit Reviewed by Shannon Mi MA (Community Service Technician) on 08/28/24 at 0832 Medication Order Taking? Sig Documenting Provider Last Dose Status ALPRAZolam (Xanax) 0.5 mg tablet [id number] Take 1 tablet by mouth in the morning, afternoon, and at bedtime. aRcquel Marcelo MD Active amLODIPine (Norvasc) 5 mg tablet [id number] Take 1 tablet (5 mg) by mouth in the morning for 30 doses. Graeme Sorensen MD Active aspirin 81 mg chewable tablet [id number] Chew 1 tablet every day by oral route. Racquel Marcelo MD Active cholecalciferol (Vitamin D3) 25 MCG (1000 units) tablet [id number] Take 1,000 Units by mouth in the morning. Racquel Marcelo MD Active clopidogrel (Plavix) 75 mg tablet [id number] Take 1 tablet by mouth in the morning. Racquel Marcelo MD Active docusate sodium (Colace) 100 mg capsule [id number] Take 100 mg by mouth in the morning. Racquel Marcelo MD Active empagliflozin (Jardiance) 10 mg [id number] Take 1 tablet every day by oral route. Racquel Marcelo MD Active insulin aspart (NovoLOG) 100 unit/mL injection vial [id number] Inject 10 Units under the skin with breakfast, with lunch, and with evening meal. Sliding scale Racquel Marcelo MD Active insulin detemir (Levemir) 100 unit/mL injection [id number] Inject 5 Units under the skin two times daily. Racquel Marcelo MD Active isosorbide mononitrate ER (Imdur) 60 mg 24 hr tablet [id number] Take 1 tablet (60 mg) by mouth 2 times daily. Carlos A Duarte MD 08/20/242358 metoprolol succinate XL (Toprol-XL) 50 mg 24 hr tablet [id number] Take 3 tablets (150 mg) by mouth inthe morning for 97 doses. Do not crush or chew. Cheryl Albrecht MD 08/20/242358 nitroglycerin (Nitrostat) 0.[id number] 1 TABLET UNDER TONGUE EVERY 5 MINS, UP TO3 DOSES NEEDED FOR CHEST PAIN Pinky Bishop MD Active pantoprazole (ProtoNix) 40 mg EC tablet [id number] TAKE 1 TABLET BY MOUTH DAILY ON AN EMPTY STOMACH FOLLOWED BY BREAKFAST 30 MINUTES AFTER Historical ProviderMD Active ranolazine (Ranexa) 500 mg 12 hr tablet [id number] Take 1 tablet (500 mg) by mouth two times daily. Do not crush, chew, or split. Pinky Bishop MD Active rosuvastatin (Crestor) 40 mg tablet [id number] TAKE 1 TABLET BY MOUTH AT BEDTIME Kevin Jacobs MD Active spironolactone (Aldactone) 25 mg tablet [id number] Take 1 tablet (25 mg) by mouth in the morning. Pinky Bishop MD Active thiamine (Vitamin B-1) 100 mg tablet [id number] Take 100 mg by mouth every other day. Historical ProviderMD Active thiamine (Vitamin B-1) 250 mg tablet [id number] Take 250 mg by mouth every other day. Historical Provider, Active Immunization History Administered Date(s) Administered Influenza Whole 01/19/2008 Influenza, High Dose Seasonal, Preservative Free 01/16/2017 Influenza, Seasonal, Quadrivalent, Adjuvanted 12/15/2021 Influenza, injectable, quadrivalent, preservative free 11/30/2016 Influenza, seasonal, injectable 12/13/2010, 01/23/2012 Influenza, trivalent, adjuvanted 01/17/2018 Novel [id number], preservative-free 01/27/2009 Pfizer SARS-CoV-2 Vaccination 05/30/2020, 06/21/2020, [...] Pt reports had recent labs done at [facility]. PAC - RN to obtain results [...] CAD, HTN, HLD,Bladder Ca, CKD, DM, GERD, NIKOLSKI, arthritis PSH: Pacer/AICD placed 02/21; CABG x [...] 08/28/2024 35.9 (L) >60.0 mL/min/1.73m*2 Final [facility]???s estimated glomerular filtration rate (eGFR) will [...] CLINICAL EFFECTIVENESS, AND OPTIMAL THERAPEUTIC RANGE. CHEST 1994;108:231S-246S. Auto WBC 08/28/2024 9.60 4.00 - 10.60 [...] Bubble Study Result Date: 08/14/2024 1 1 [facility] Heart Station [address] [place] [address] [phone] (fax) Echocardiogram-[facility] Name: LANI LIZAMA Study Date: 08/14/2024 08:33 AM B/P: 118 mmHg/75 mmHg HR: 75 bpm Date of : 1950 Location: [facility] Height: 67 in. Age: 73 year(s) [...] No pericardial effusion. Procedure Staff Reading Group: [facility] Score Caller: MASTER Ortega, RDCS Ordering Physician: TATIANNA HAYWARD Wall Motion Scores -1 - hyperkinesia, 0 - not evaluated, 1 - normal, 2 - hypokinesia, 3 - akinesia, 4 - dyskinesia Transthoracic echo (TTE) complete Result Date: 02/13/2024 1 1 [facility] Heart Station [address] [place] [address] [phone] (fax) Echocardiogram-[facility] Name: LANI LIZAMA Study Date: 02/13/2024 03:21 PM B/P: 125 mmHg/83 mmHg HR: 57 bpm Date of : 1950 Location: [facility] Height: 67 in. Age: 73 year(s) [...] reviewed the examination Procedure Staff Reading Group: [facility] GroupReferring Physician: JAYSHREE HERNANDEZ Score Caller: SHYANNE Wadsworth Ordering Physician: Christian Bergman MD Wall Motion Scores -1 -hyperkinesia, 0 - not evaluated, 1 - normal, 2 - hypokinesia, 3 - akinesia, 4 - dyskinesia Complete Echo (TTE) w/wo Imaging Agent, Strain, 3D, Bubble Study Result Date: 09/27/2023 1 1 [facility] Heart Station [address] [place] [address] [phone] (fax) Echocardiogram-[facility] Name: LANI LIZAMA Study Date: 09/27/2023 07:42 AM B/P: 118 mmHg/57 mmHg HR: 84 bpm Date of : 1950 Location: [facility] Height: 67 in. Age: 72 year(s) [...] No pericardial effusion. Procedure Staff Reading Group: [facility] Score Caller: MASTER Ortega, RDCS Ordering Physician: DEJUAN POPE Wall Motion Scores -1 - hyperkinesia, 0 - not evaluated, 1 - normal, 2 - hypokinesia, 3 - akinesia, 4 - dyskinesia Encounter Date: 08/13/24 ECG 12 lead Result Value Ventricular Rate 86 Atrial Rate 86 OR Interval 154 QRS DURATION 144 QT Interval 424 QTC CALCULATION(BAZETT) 507 P Casper 37 R-Casper -56 T Wave Casper 114 Impression Atrial-sensed ventricular-paced rhythm Biventricular pacemaker [...] significant pain. He was therefore referred to [facility] where he underwent a cystoscopy with [...] this he was a 20-year, 2 pack/day ([id number]) smoker Gross hematuria status post cystoscopy with cytology and biopsy of 2 x 2 x 2 posterior wall bladderlesion seen on CT report from [facility] dated 07/30/2024 Will require formal [...] 3 Mallampati: ll Media Information Document Information [facility] Clinical: Clinical Unknown 09/25/2024 09:04 Attached To: Pre-Admission Testing on 09/25/24 with [facility]ANESTHESIA CLINIC ROOM Source Information Will Pepe CNP [facility] Pac Document History Media Information Document Information [facility] Clinical: Clinical Unknown 09/25/2024 09:04 Attached To: Pre-Admission Testing on 09/25/24 with PRE-ANESTHESIA CLINIC ROOM Source Information Will Pepe CNP [facility] Pac Document History Objective Physical Exam [...] Plan Pending obtaining preop labs done at [facility] Pt recent Hgb AIC 08/03/24: 6.1, office to fax results to [facility] - PAC If no acute issues this patient may Return for Procedure as scheduled Will Pepe CNP [1] No Known Allergies [2] Patient Active Problem List Diagnosis Coronary artery disease involving coy[place] coronary artery of coyote valley heart Type 1 diabetes mellitus ([facility]/HCC) Essential hypertension Gastroesophageal reflux disease History of coronary artery bypass surgery Increased immunoglobulin Irritable bowel syndrome Mixed hyperlipidemia Monoclonal gammopathy Nausea Overweight with body mass index (BMI) 25.0-29.9 Right lower quadrant abdominal pain Spondylosis of lumbar spine Chronic kidney disease Stenosis of abdominal aorta Type 2 diabetes mellitus without complication, with long-term current use of insulin ([facility]) AV block, 3rd degree ([facility]) Age-related nuclear cataract of both eyes Blepharitis of upper and lower eyelids of both eyes Dry eyes 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 edema associated with type 1 diabetes mellitus ([facility]/HCC) NSTEMI (non-ST elevated myocardial infarction) ([facility]) Acute on chronic systolic heart failure, NYHA class 3 ([facility]) HFrEF (heart failure with reduced ejection fraction) ([facility]) Angina at rest Dietary counseling and surveillance CHRYSTAL (generalized anxiety disorder) Ground glass opacity present on imaging of lung Hypoxia Pulmonary nodule Secondary hyperparathyroidism Type 2 diabetes mellitus with hyperglycemia ([facility]) Moderate nonproliferative diabetic retinopathy of left eye ([facility]) Severe nonproliferative diabetic retinopathy associated with type [...] BLADDER TUMOR) Operative Note Date: 09/29/2024 Location: [facility] OR Name: Lani Lizama, : 1950, Diagnosis Pre-op Diagnosis * Lesion of bladder [N32.9] Post-op Diagnosis * Lesion of bladder [N32.9] Procedures TURBT (TRANSURETHRAL RESECTION OF BLADDER TUMOR) 17163 - OR CYSTOURETHROSCOPY W/DEST &/RMVL MED BLADDER MARIO Surgeons [...] Frozen? Priority Lab ID A Urine Urine NON-CORK TILE FLOOR LAYER CYTOLOGY - CELLULAR EXAM Last Mcmanus MD 09/29/24 1415 B Urinary Bladder Tissue HISTOLOGY - TISSUE EXAM Last Mcmanus MD 09/29/24 1432 No [id number] Description: Bladder Tumor Staff: Front Services Agent: Destiney Whitney RN; Juli Byrnes; Ani Floyd [...] has been actively warmed in preoperative area. Preopera tive antibiotics have been ordered and given within [...] mass along the left lateral wall 16 Romanian Orellana catheter placed Gemcitabine to perform given [...] Description 11/11/2024 8:30 AM EDT Hospital Encounter [facility] Main Operating Room [address] [place] [address] Last Mcmanus MD [address] [place] [address] Dr Feliz [facility] [place] [address] 11/11/2024 8:30 AM EDT - 11/11/2024 10:00 AM EDT Surgery [facility] Main Operating Room [address] [place] [address] Last Mcmanus MD [address] [place] [address] [address] [place] [address] [address] TURBT (TRANSURETHRAL RESECTION OF BLADDER TUMOR) [70206 (CPT )] Scheduled Procedures Name Priority Associated Diagnoses Date/Ti me TURBT (TRANSURETHRAL RESECTION OF BLADDER TUMOR) Malignant neoplasm of urinary bladder, unspecified site ([facility]/HCC) 11/11/2024 8:30 AM EDT documented as of this encounter Procedures Procedure Name Priority Date/Time Associated Diagnosis Comments POCT GLUCOSE METER UNSOLICITED RESULTS Routine 09/29/2024 3:04 PM EDT HISTOLOGY - TISSUE EXAM Routine 09/30/19 2:32 PM EDT Lesion of bladder NON-CORK TILE FLOOR LAYER CYTOLOGY - CELLULAR EXAM Routine 09/29/2024 2:15 PM EDT Lesion of bladder OR CYSTOURETHROSCOPY W/DEST &/RMVL MED BLADDER MARIO 09/29/2024 1:37 PM EDT Lesion of bladder POCT GLUCOSE METER UNSOLICITED RESULTS Routine 09/29/2024 11:12 AM EDT documented in this encounter Results * (ABNORMAL) POCT glucose meter (09/29/2024 3:04 PM EDT) Glucose POC 143(H) 70 - 105 mg/dL 09/29/2024 3:16 PM EDT [facility] ([facility]UEL) Comment:[email or web address] Blood Capillary blood specimen / Unknown 09/29/2024 3:04 PM EDT 09/29/2024 3:15 PM EDT Narrative [facility] (RACHEL) - 09/29/2024 3:16 PM EDT Waived Testing in the ED is performed under the ED CLIA certificate #[id number]. us Last Mcmanus MD LAB BLOOD ORDERABLES Final Resul t [facility] ([facility]) [address] [place] [address] * Histology - tissue exam (09/29/2024 2:32 PM EDT) Case Report Surgical Pathology Case: [id number] Authorizing Provider: Last Mcmanus MD Collected: 09/29/2024 1432 Ordering Location: [facility] Main Operating Room Received: 09/29/2024 1514 Pathologist: Kevin Dawson MD Specimen: Urinary Bladder, Bladder Tumor 10/05/2024 11:05 AM EDT [facility] ([facility]) Final Diagnosis A. Bladder tumor, transurethral resection: - Invasive high-grade papillary urothelial carcinoma. - Small fragments of muscularis propria present, uninvolved by neoplasm. - See synoptic report. 10/05/2024 11:05 AM EDT [facility] ([facility]) at 1104 EDT Preliminary Diagnosis 10/05/2024 11:05 AM EDT [facility] ([facility]) Clinical Information Post-Op Diagnoses N32.9 - Lesion of bladder [ICD-10-CM] 10/05/2024 11:05 AM EDT [facility] ([facility]) Comment This case was reviewed in intradepartmental consensus with agreement of the diagnosis. 10/05/2024 11:05 AM T [facility] ([facility]) Gross Description A. Urinary Bladder. The specimen is received in formalin labeled Lani Mega and bladder tumor. It consists of a 2.7 x 2.5 x 0.6 cm aggregate of red-pink to vázquez-brown, rubbery, shaggy fragments of soft tissue. The specimen is entirely submitted in 3 cassettes. Sangeetha Muro, Pathologists' Supply Person student Hugo Suárez, Pathologists' Supply Person 10/05/2024 11:05 AM T [facility] ([facility]) Microscopic Description Microscopic examination performed. 10/05/2024 11:05 AM T [facility] ([facility]) Synoptic Checklist URINARY BLADDER: Biopsy and Transurethral [...] 11:05 AM T [facility] ([facility]) Tissue Urinary bladder structure / Unknown 09/29/2024 2:32 PM EDT 09/29/2024 3:14 PM EDT Comment:Pre-op diagnosis: Lesion of bladder [N32.9] us Nolani Marietta LEMUS LAB PATHOLOGY ORDERABLES Final R esult [facility]) [address] [place] [address] * Non-laser machine operator cytology - cellular exam (09/29/2024 2:15 PM EDT) Case Report Non-gynecologic Cytology Case: [id number] Authorizing Provider: Last Mcmanus MD Collected: 09/29/2024 1415 Ordering Location: [facility] Main Operating Room Received: 09/30/2024 0804 Pathologist: Omayra Sullivan MD Specimen: Urine 10/01/2024 6:05 PM EDT [facility] ([facility]) Final Diagnosis A. Urine, cystoscopic: - Atypical urothelial cells. - Marked acute inflammation. 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 10/01/2024 6:05 PM EDT [facility] ([facility]) at 1805 EDT Comment See also concurrent surgical case, [id number]. 10/01/2024 6:05 PM EDT [facility] ([facility]) Microscopic Description Satisfactory for evaluation. Examination of the ThinPrep slide reveals atypical cells, urothelial cells, abundant acute inflammation, blood, fungal spores consistent with Coretta species and debris. 10/01/2024 6:05 PM EDT [facility] ([facility]) Clinical Information Post-Op Diagnoses N32.9 - Lesion of bladder [ICD-10-CM] 10/01/2024 6:05 PM EDT [facility] ([facility]) Gross Description 80 mL clear, yellow fluid 10/01/2024 6:05 PM EDT [facility] ([facility]) Urine Urine specimen / Unknown 09/29/2024 2:15 PM EDT 09/30/2024 8:04 AM EDT Comment:Pre-op diagnosis: Lesion of bladder [N32.9] us Last Mcmanus MD LAB CYTOLOGY ORDERABLES Final Re sult [facility] ([facility]) [address] [place] [address] * (ABNORMAL) POCT glucose meter (09/29/2024 11:12 AM EDT) Glucose POC 211(H) 70 - 105 mg/dL 09/29/2024 11:24 AM EDT [facility] ([facility]) Comment:[email or web address] Blood Capillary blood specimen / Unknown 09/29/2024 11:12 AM EDT 09/29/2024 11:23 AM EDT Narrative [facility] ([facility]) - 09/29/2024 11:24 AM EDT Waived Testing in the ED is performed under the ED CLIA certificate #[id number]. us Obrajeev Mcmanus MD LAB BLOOD ORDERABLES Final Resul t [facility] ([facility]) [address] [place] [address] documented in this encounter Visit Diagnoses Diagnosis Lesion of bladder- Primary Unspecified disorder of bladder Lesion of bladder Unspecified disorder of bladder Malignant neoplasm of [...] 99 days, Preprocedure, Indication: Preoperative fluids lidocaine (Uro Jet-Glydo) 2 % gel As needed, Starting on Sat09/29/24 at 1426, Intraprocedure Given 09/29/2024 2:26 PM EDT 11 mL lidocaine HCl (Xylocaine) 10 mg/mL (1 %) [...] Preprocedure documented in this encounter Care Teams Photocopy Operator Relationship Specialty Start Date End Date Harley Goodman DO [address] [place] [address] PCP - General 03/02/22 documented as of this encounter
--- OUTSIDE RECORDS SUMMARY | 2024-09-29 13:37 | XMS_ITS | Encounter Summary ---
Author Organization [facility] Address [address] [place] [address] Care Team Providers Care Senior Customer Service Representative Name Role Phone Harley Goodman DO Primary Care Provider [phone] Reason for Visit * Auth/Cert (Routine) Specialty Diagnoses / Procedures Referred By Twyla t Referred To Contact Diagnoses Lesion of bladder Lesion of bladder [N32.9] Procedures MS CYSTOURETHROSCOPY W/DEST &/RMVL MED BLADDER MARIO TURBT (TRANSURETHRAL RESECTION OF BLADDER TUMOR) Last Mcmanus MD [address] [place] [address] [address] [place] [address] Phone: tel: fax: [facility] Main Operating Room [address] [place] [address] Phone: tel: fax: Referral ID Status Reason Start Date Expiration Date Visits Re quested Visits Authorized [id number] 1 1 Encounter Details Date Type Department Care Team (Late st Contact Info) Description 09/29/2024 1:37 PM EDT Anesthesia Event [facility] Main Operating Room [address] [place] [address] Dorcas Dang MD [address] [place], [place] [id number] Uziel Cherry MD [address] [place] [address] Anesthesia Record Procedure Summary Procedure Name Responsible Anesthesiologist Anesthesia Start Time Anesthesia Stop Time TURBT (TRANSURETHRAL RESECTION OF BLADDER TUMOR) Dorcas Dang MD 09/29/24 1337 09/29/24 1500 Events Date Time Event Comment 09/29/2024 1300 1337 An Start 1337 An Start Data 1401 Anesthesia Ready 1410 Time Out Time out comple soraya (confirmed patient ID, surgeon, procedure, and operative site). 1453 an stop data 1459 Handoff to Receiving I compl eted my handoff to the receiving clinician during which we: 1. Identified the patient 2. Identified the responsible provider 3. Reviewed the pertinent medical history 4. Discussed the surgical course 5. Reviewed intra-op anesthesia management and issues during anesthesia 6. Set expectations for post-procedure period 7. Allowed opportunity for questions and acknowledgement of understanding. 1500 An Stop Meds Name Total midazolam (Versed) 1mg/mL injection 3 mg lidocaine (XYLOCAINE) 1 % SubQ 2 mL BUPivacaine 0.75 %-dextrose 8.25 % (Sens orcaine) intrathecal injection 2 mL ceFAZolin in dextrose (iso-os) (Ancef) I VPB 2 g 2 g lactated Ringer's infusion 41.5 mL * Agents Name O2 N2O Air Sevoflurane Inspired Sevoflurane N2O Inspired N2O Inspired O2 Setting * Blood No blood administrations on file. Lines, Drains, and Airways Type Details Placement Removal Peripheral IV Placement Date: 09/29/24; Placement Time: 1110; Catheter Size: 20 G; Orientation: Posterior, Right; Location: Hand; Inserted by: duncan; Insertion Attempts: 1; Removal Date: 09/29/24; Removal Time: 211509/29/24 1110 by Judy Avila RN 09/29/242115 by Rosi Kaiser RN Urethral Catheter Placement Date: 09/29/24; Placement Time: 144; Inserted by: Dr. Mcmanus; Type: Latex; Size: 16 Fr.; Balloon Size: 10 mL; Urine Returned: Yes; Removal Date: 09/29/24; Removal Time: 211509/29/24 1445 by Ani Floyd RN 09/29/242115 by Rosi Kaiser RN documented in this encounter Social History Tobacco Use Types Packs/Day Years Used Date Smoking Tobacco: Former Cigarettes Smokeless Tobacco: Never Alcohol Use Standard Drinks/Week Comments Never 0 (1 standard drink = 0.6 oz pur e alcohol) [facility] Utilities Answer Date Recorded In the past [...] AM EST documented as of this encounter Procedure Notes * Mirela Devlin MD - 09/29/2024 2:10 PM EDTAssociated Order(s): Spinal Block Spinal Block Patient location during procedure: OR Start time: 09/29/2024 1:45 PM End time: 09/29/2024 1:55 PM Reason for block: primary anesthetic Staffing Performed: resident/SCRAPER LOADER OPERATOR/CAA Anesthesiologist: Dorcas Dang MD Resident/SCRAPER LOADER OPERATOR: Mirela Devlin MD Performed by: Mirela Devlin MD Authorized by: Dorcas Dang MD Preanesthetic Checklist Completed: patient identified, IV checked, site marked, risks and benefits discussed, surgical consent, monitors and equipment checked, pre-op evaluation and timeout performed Spinal Block Patient position: sitting Prep: ChloraPrep Sterility prep: drape, cap, gloves, gown, hand hygiene and mask Sedation level: light sedation Patient monitoring: continuous pulse oximetry, ETCO2 and heart rate Approach: midline Location: L4-5 Injection technique: single-shot Needle Needle type: pencil-tip Needle gauge: 25 G Needle length: 3.5 in Medications Administered BUPivacaine 0.75 %-dextrose 8.25 % (Sensorcaine) intrathecal injection - intrathecal 2 mL - 09/29/2024 1:45:00 PM lidocaine (XYLOCAINE) 1 % SubQ - infiltration 2 mL - 09/29/2024 1:45:00 PM Assessment Sensory level: T6 Block outcome: pain improved Number of attempts: 1 Procedure assessment: patient tolerated procedure well with no immediate complications Cosigned by Dorcas Dang MD at 09/29/2024 3:24 PM EDT documented in this encounter Plan of Treatment Upcoming Encounters Date Type Department Care Team (Latest Contact Info) Description 11/11/2024 8:30 AM EDT Hospital Encounter [facility] Main Operating Room [address] [place] [phone] Last Mcmanus MD [address] [place] [address] [address] [place] [address] 11/11/2024 8:30 AM EDT - 11/11/2024 10:00 AM EDT Surgery [facility] Main Operating Room [address] [place] [address] Last Mcmanus MD [address] [place] [address] [place] [address] TURBT (TRANSURETHRAL RESECTION OF BLADDER TUMOR) [62072 (CPT )] Scheduled Procedures Name Priority Associated Diagnoses Date/Ti me TURBT (TRANSURETHRAL RESECTION OF BLADDER TUMOR) Malignant neoplasm of urinary bladder, unspecified site ([facility]/HCC) 11/11/2024 8:30 AM EDT documented as of this encounter Procedures Procedure Name Priority Date/Time Associated Diagnosis Comments ANESTHESIA SPINAL BLOCK Routine 09/29/2024 1:45 PM EDT documented in this encounter Results * Spinal Block (09/29/2024 1:45 PM EDT) Narrative Dorcas Dang MD - 09/29/2024 1:45 PM EDT Dorcas Dang MD 09/29/2024 3:24 PM Spinal Block Patient location during procedure: OR Start time: 09/29/2024 1:45 PM End time: 09/29/2024 1:55 PM Reason for block: primary anesthetic Staffing Performed: resident/SCRAPER LOADER OPERATOR/CAA Anesthesiologist: Dorcas Dang MD Resident/SCRAPER LOADER OPERATOR: Mirela Devlin MD Performed by: Mirela Devlin MD Authorized by: Dorcas Dang MD Preanesthetic Checklist Completed: patient identified, IV checked, site marked, risks and benefits discussed, surgical consent, monitors and equipment checked, pre-op evaluation and timeout performed Spinal Block Patient position: sitting Prep: ChloraPrep Sterility prep: drape, cap, gloves, gown, hand hygiene and mask Sedation level: light sedation Patient monitoring: continuous pulse oximetry, ETCO2 and heart rate Approach: midline Location: L4-5 Injection technique: single-shot Needle Needle type: pencil-tip Needle gauge: 25 G Needle length: 3.5 in Medications Administered BUPivacaine 0.75 %-dextrose 8.25 % (Sensorcaine) intrathecal injection - intrathecal 2 mL - 09/29/2024 1:45:00 PM lidocaine (XYLOCAINE) 1 % SubQ - infiltration 2 mL - 09/29/2024 1:45:00 PM Assessment Sensory level: T6 Block outcome: pain improved Number of attempts: 1 Procedure assessment: patient tolerated procedure well with no immediate complications us Dorcas Dang MD ANESTHESIA ORDERABLES Final Res ult documented in this encounter Visit Diagnoses Diagnosis Malignant neoplasm of urinary bladder, unspecified site ([facility]) * Anesthesia Postprocedure Evaluation - Manfred Krueger MD - 09/29/2024 8:47 PM EDT Patient: Prem Ayoub Procedure Summary Date: 09/29/24 Room / Location: [facility] OPERATING ROOM 07 / [facility] Operating Room Anesthesia Start: 1337 Anesthesia Stop: 1500 Procedure: TURBT (TRANSURETHRAL RESECTION OF BLADDER TUMOR) Diagnosis: Lesion of bladder (Lesion of bladder [N32.9]) Surgeons: Last Mcmanus MD Responsible Provider: Dorcas Dang MD Anesthesia Type: general ASA Status: 3 Anesthesia Type: general Vitals Value Taken Time BP 147/61 09/29/24 20:43 Temp 36 ??C (96.8 ??F) 09/29/24 18:30 Pulse 90 09/29/24 20:46 Resp 23 09/29/24 20:46 SpO2 99 % 09/29/24 20:46 Vitals shown include unfiled device data. Anesthesia Post Evaluation Patient location during evaluation: bedside Patient participation: complete - patient participated Level of consciousness: awake and alert Pain score: 0 Pain management: adequate Airway patency: patent Two or more strategies used to mitigate risk of obstructive sleep apnea Cardiovascular status: acceptable Respiratory status: acceptable Hydration status: acceptable Comments: Patient with 5/5 strength of lower extremities following neuraxial anesthesia. Able to void without issue. Has support at home with and two sons. Patient is hemodynamically stable and is able to be discharged from PACU per anesthesia protocol. There were no known notable events for this encounter. * Anesthesia Preprocedure Evaluation - Dorcas Dang MD - 09/29/2024 11:30 AM EDT Patient: Prem Ayoub Procedure Information Date/Time: 09/29/24 1230 Procedure: TURBT (TRANSURETHRAL RESECTION OF BLADDER TUMOR) Location: [facility] OPERATING ROOM 07 / [facility] Operating Room Surgeons: Last Mcmanus MD Relevant Problems Cardio (+) AV block, 3rd degree (CMS/HCC) (+) Angina at rest (+) Carotid stenosis, asymptomatic (+) Coronary artery disease involving [place] coronary artery of [place] heart (+) Essential hypertension (+) NSTEMI (non-ST elevated myocardial infarction) (CMS/HCC) (+) Stenosis of abdominal aorta Endo (+) Type 1 diabetes mellitus (CMS/HCC) (+) Type 2 diabetes mellitus with hyperglycemia (CMS/HCC) (+) Type 2 diabetes mellitus without complication, with long-term current use of insulin (CMS/HCC) GI (+) Gastroesophageal reflux disease /Renal (+) Chronic kidney disease Circulatory (+) HFrEF (heart failure with reduced ejection fraction) (CMS/HCC) (+) History of coronary artery bypass surgery Clinical information reviewed: Allergies Meds Med Hx Surg Hx Surgical History[1] Medical History[2] Medication Documentation Review Audit Reviewed by Judy Avila RN (Registered Nurse) on 09/29/24 at 1059 Medication Order Taking? Sig Documenting Provider Last Dose Status ALPRAZolam (Xanax) 0.5 mg tablet [id number] Yes Take 1 tablet by mouth in the morning, afternoon, andat bedtime. Historical ProviderMD 09/29/2024 Active amLODIPine (Norvasc) 5 mg tablet [id number] Yes Take 1 tablet (5 mg) by mouth in the morning. Pinky Bishop MD 09/29/2024 Active aspirin 81 mg chewable tablet [id number] Yes Chew 1 tablet every day by oral route. Historical ProviderMD Past Week Active cholecalciferol (Vitamin D3) 25 MCG (1000 units) tablet [id number] Yes Take 1,000 Units by mouth in the morning. Racquel ProviderMD 09/28/2024 Active clopidogrel (Plavix) 75 mg tablet [id number] Yes Take 1 tablet by mouth in the morning. Historical ProviderMD Past Week Active docusate sodium (Colace) 100 mg capsule [id number] Yes Take 100 mg by mouth in the morning. Racquel Marcelo MD 09/28/2024 Active empagliflozin (Jardiance) 10 mg [id number] Yes Take 1 tablet every day by oral route. Racquel ProviderMD 09/29/2024 Active insulin aspart (NovoLOG) 100 unit/mL injection vial [id number] Yes Inject 10 Units under the skin with breakfast, with lunch, and with evening meal. Sliding scale Racquel Marcelo MD 09/28/2024 Active insulin degludec (TRESIBA FLEXTOUCH U-100 SUBQ) [id number] Yes Inject 15 Units under the skin in the morning. Racquel Marcelo MD 09/29/2024 Active insulin detemir (Levemir) 100 unit/mL injection [id number] Yes Inject 5 Units under the skin two times daily. SLIDING SCALE Racquel Marcelo MD 09/29/2024 Active isosorbide mononitrate ER (Imdur) 60 mg 24 hr tablet [id number] Take 1 tablet (60 mg) by mouth 2 times daily. Carlos A Duarte MD 08/20/24 235 levoFLOXacin (Levaquin) 250 mg tablet [id number] Yes Historical ProviderMD 09/29/2024 Active metoprolol succinate XL (Toprol-XL) 50 mg 24 hr tablet [id number] Take 3 tablets (150 mg) by mouth inthe morning for 97 doses. Do not crush or chew. Cheryl Albrecht MD 08/20/24 235 nitroglycerin (Nitrostat) 0.4 mg SL tablet [id number] No PLACE 1 TABLET UNDER TONGUE EVERY 5 MINS, UPTO 3 DOSES NEEDED FOR CHEST PAIN Patient not taking: Reported on 09/29/2024 Pinky Bishop MD More than a month Active pantoprazole (ProtoNix) 40 mg EC tablet [id number] Yes TAKE 1 TABLET BY MOUTH DAILY ON AN EMPTY STOMACH FOLLOWED BY BREAKFAST 30 MINUTES AFTER Historical ProviderMD 09/29/2024 Active ranolazine (Ranexa) 500 mg 12 hr tablet [id number] Yes Take 1 tablet (500 mg) by mouth two times daily. Do not crush, chew, or split. Pinky Bishop MD 09/29/2024 Active rosuvastatin (Crestor) 40 mg tablet [id number] Yes TAKE 1 TABLET BY MOUTH AT BEDTIME Kevin Jacobs MD 09/29/2024 Active spironolactone (Aldactone) 25 mg tablet [id number] Yes Take 1 tablet (25 mg) by mouth in the morning.Pinky Bishop MD 09/29/2024 Active thiamine (Vitamin B-1) 100 mg tablet [id number] Yes Take 100 mg by mouth every other day. Historical Provider, 09/28/2024 Active thiamine (Vitamin B-1) 250 mg tablet [id number] Yes Take 250 mg by mouth every other day. Historical Provider, 09/28/2024 Active Allergies[3] Lab Results Component Value Date GLUCOSE 185 (H) 08/28/2024 CALCIUM 9.6 08/28/2024 NA 138 08/28/2024 K 5.9 (H) 08/28/2024 CO2 28 08/28/2024 CL 105 08/28/2024 BUN 30 (H) 08/28/2024 CREATININE 1.95 (H) 08/28/2024 eGFR (mL/min/1.73m*2) Date Value 08/28/2024 35.9 (L) 08/13/2024 44.5 (L) 02/14/2024 43.8 (L) 02/13/2024 45.2 (L) 09/28/2023 46.1 (L) Lab Results Component Value Date WBC 9.60 08/28/2024 HGB 14.4 08/28/2024 HCT 44.8 08/28/2024 MCV 90.9 08/28/2024 PLT 278 08/28/2024 No results found for: PTT Lab Results Component Value Date INR 1.10 08/28/2024 INR 1.17 (H) 02/13/2024 INR 1.15 (H) 03/21/2022 No results found for: ABORH Lab Results Component Value Date ALT 17 08/28/2024 AST 20 08/28/2024 ALKPHOS 117 (H) 08/28/2024 BILITOT 0.6 08/28/2024 No results found for: HGBA1C TTE: Left Ventricle: The left ventricle is normal size. Global left ventricular systolic function is severely reduced. The EF is 25 % visually. Left ventricular wall thickness is normal. Diffuse global hypokinesis. Right Ventricle: The right ventricle is normal in size. Normal right ventricular systolic function.Unable to assess right sided pressures due to lack of measurable tricuspid regurgitation. Left Atrium: The left atrium is normal in size Physical Exam Airway Mallampati: II Cardiovascular - normal exam Rhythm: regular Rate: normal Dental (+) upper dentures Pulmonary - normal exam Neurological Abdominal Anesthesia Plan ASA 3 spinal The patient is not a current smoker. Education provided regarding risk of obstructive sleep apnea. intravenous induction Postoperative pain plan includes opioids. Trial extubation is planned. Anesthetic plan and risks discussed with patient. Use of blood products discussed with patient who. Plan discussed with attending and resident. Additional Equipment Requests [1] Past Surgical History: Procedure Laterality Date CARDIAC CATHETERIZATION 07/12/2020 CARDIAC CATHETERIZATION 10/15/2018 CARDIAC CATHETERIZATION 02/24/2018 CARDIAC CATHETERIZATION 09/27/2015 CORONARY ARTERY BYPASS GRAFT CORONARY STENT PLACEMENT TONSILLECTOMY [2] Past Medical History: Diagnosis Date Allergic rhinitis Arthritis Cancer (CMS/HCC) BLADDER Carotid artery stenosis Chronic kidney disease Coronary artery disease Diabetes mellitus (CMS/HCC) GERD (gastroesophageal reflux disease) HL (hearing loss) Hyperlipidemia Hypertension Myocardial infarction (CMS/HCC) Pacemaker PVD (peripheral vascular disease) Status post internal cardiac defibrillator procedure Third degree heart block (CMS/HCC) [3] No Known Allergies documented in this encounter Administered Medications Inactive Administered Medications - up to 3 most recent administrations Medication Order MAR Action Action Date Dose Rate Site ATOolcjabfz-sgiexpen-jvck r(PF) (Marcaine Spinal) 0.75 % (7.5 mg/mL) injection intrathecal, Once PRN Procedure, Starting on Sat09/29/24 at 1345, For 1 dose, Anesthesia Intraprocedure Given 09/29/2024 1:45 PM EDT 2 mL ceFAZolin in dextrose (iso-os) (Ancef) IVPB 2 g 2 g, intravenous, at 100 mL/hr, Administer over 30 Minutes, Once, On Sat09/29/24 at 1115, For 1 dose, Preprocedure, Administer within 60 minutes of incision. Duplex bag - activate before hanging., Suspected Indication (Select all that apply): Surgical Prophylaxis Given 09/29/2024 1:37 PM EDT 2 g lactated Ringer's infusion 30 mL/hr, intravenous, Continuous, Starting on Sat09/29/24 at 1115, For 99 days, Preprocedure, Indication: Perioperative hydration Continued by Anesthesia 09/29/2024 1:37 PM EDT 30 mL/hr 30 mL/hr New Bag 09/29/2024 11:15 AM EDT 30 mL/hr 30 mL/hr lidocaine HCl (Xylocaine) 10 mg/mL (1 %) injection infiltration, Once PRN Procedure, Starting on Sat09/29/24 at 1345, For 1 dose, Anesthesia Intraprocedure Given 09/29/2024 1:45 PM EDT 2 mL midazolam (Versed) injection intravenous, As needed, Starting on Sat09/29/24 at 1332, Anesthesia Intraprocedure Given 09/29/2024 2:13 PM EDT 1 mg Given 09/29/2024 1:32 PM EDT 2 mg documented in this encounter Care Teams Senior Customer Service Representative Relationship Specialty Start Date End Date Harley Goodman DO [address] [place] [id number] PCP - General 03/02/22 documented as of this encounter
--- OUTSIDE RECORDS SUMMARY | 2024-10-06 08:45 | XMS_ITS | Encounter Summary ---
Author Organization [facility] Address [address] [place] [address] Care Team Providers Care Tie Man Name Role Phone Harley Goodman DO Primary Care Provider [phone] Encounter Details Date Type Department Care Team (Late st Contact Info) Description 10/06/2024 8:45 AM EDT Clinical Support [facility] Urology [address] [place] [address] Social History Tobacco Use Types Packs/Day Years Used Date Smoking Tobacco: Former Cigarettes Smokeless Tobacco: Never Alcohol Use Standard Drinks/Week Comments Never 0 (1 standard drink = 0.6 oz pur e alcohol) [facility] Utilities Answer Date Recorded In the past 12 months has e electric, gas, oil, or water [employer] threatened to shut off services in your [...] any time in the past 12 [facility], were you homeless or living in [...] AM EST documented as of this encounter Progress Notes * Shannon Mi MA - 10/06/2024 8:45 AM EDT Patient was here today for a void trial after having a TURBT done with . Patient states has been feeling great beisdes minor bladder spasms. Denies any hematuria. Filled patients bladder with 200ml with water and patient voided 140ml. Advised patient if he has any trouble urinating after leaving today to call us and come back to have cath reinserted and or go to the ER. Patient verbalized understanding. documented in this encounter Plan of Treatment Upcoming Encounters Date Type Department Care Team (Latest Contact Info) Description 11/11/2024 8:30 AM EDT Hospital Encounter [facility] Main Operating Room [address] [place] [address] Last Mcmanus MD [address] [place] [address] Dr [address] [place] [address] 11/11/2024 8:30 AM EDT - 11/11/2024 10:00 AM EDT Surgery [facility] Main Operating Room [address] [place] [address] Last Mcmanus MD [address] [place] [address] Dr [address] [place] [address] TURBT (TRANSURETHRAL RESECTION OF BLADDER TUMOR) [53467 (CPT )] Scheduled Procedures Name Priority Associated Diagnoses Date/Ti ks TURBT (TRANSURETHRAL RESECTION OF BLADDER TUMOR) Malignant neoplasm of urinary bladder, unspecified site ([facility]/HCC) 11/11/2024 8:30 AM EDT documented as of this encounter Visit Diagnoses Not on filedocumented in this encounter Care Teams Tie Man Relationship Specialty Start Date End Date Harley Goodman DO [address] [place] [id number] PCP - General 03/02/22 documented as of this encounter
--- OUTSIDE RECORDS SUMMARY | 2024-10-08 09:00 | XMS_ITS | Encounter Summary ---
Author Organization [facility] Address [address] [place] [address] Care Team Providers Care Parquet Floor Layer Name Role Phone Harley Goodman DO Primary Care Provider [phone] Encounter Details Date Type Department Care Team (Late st Contact Info) Description 10/08/2024 9:00 AM EDT Office Visit [facility] [address] [place] [address] Pinky Bishop MD [address] [facility] [place] [address] Cardiac pacemaker in situ (Primary Dx); NSTEMI (non-ST elevated myocardial infarction) ([facility]); Coronary artery disease involving eastern shoshone coronary artery of eastern shoshone heart without angina pectoris; Hypertension, unspecified type; Coronary artery disease of eastern shoshone artery of eastern shoshone heart with stable angina pectoris Social History Tobacco Use Types Packs/Day Years Used Date Smoking Tobacco: Former Cigarettes Smokeless Tobacco: Never Alcohol Use Standard Drinks/Week Comments Never 0 (1 standard drink = 0.6 oz pur e alcohol) [facility] Utilities Answer Date Recorded In the past 12 months has e [employer], gas, oil, or water [employer] threatened to shut off services in your [...] any time in the past [address] [facility], were you homeless or living in a skilled nursing (including now)? No 08/13/2024 Hunger Vital Sign [...] Sign Reading Time Taken Comments Blood Pressure 112/70 10/08/2024 8:55 AM EDT Pulse 86 10/08/2024 8:55 AM EDT Temperature - - Respiratory Rate - - Oxygen Saturation 99% 10/08/2024 8:55 AM EDT Inhaled Oxygen Concentration - - Weight 81.2 kg (179 lb) 10/08/2024 8:55 AM EDT Height 170.2 cm (5' 7 ) 10/08/2024 8:55 AM EDT Body Mass Index 28.04 10/08/2024 8:55 AM EDT documented in this encounter Progress Notes * Pinky Bishop MD - 10/08/2024 9:00 AM EDT Images from the original note were not included. [facility] Cardiology Clinic Note Chief Complaint: Patient here for 2 month follow up . Patient states he has been feeling rough. Patient states he had and RI in July then diagnosed with cancer in his bladder. Patient had surgery a week ago Saturday for the bladder. Patient denies any cardiac symptoms at this time. HPI: Lani Lizama is a 73 y.o. [...] mildly elevated troponin. Patient was transferred to [facility] for further evaluation and treatment. Of [...] with bladder cancer and requires upcoming surgery. Update 10/08/2024: Doing well from a cardiac standpoint Had surgery for his bladder cancer; uneventful perioperative period from a cardiac standpoint Currently denies any cardiac symptoms Cardiology ROS: Review of Systems Musculoskeletal: Positive for arthritis, back pain and joint pain. All other systems reviewed and are negative. Past Medical History He has a past medical history of Allergic rhinitis, Arthritis, Cancer (CMS/HCC), Carotid artery stenosis, Chronic kidney disease, Coronary artery disease, Diabetes mellitus (CMS/HCC), GERD (gastroesophageal reflux disease), HL (hearing loss), Hyperlipidemia, Hypertension, Myocardial infarction (CMS/HCC), Pacemaker, PVD (peripheral vascular disease), Status post internal cardiac defibrillator procedure, and Third degree heart block (CMS/HCC). Surgical History He has a past surgical history that includes Cardiac catheterization (07/12/2020); Cardiac catheterization (10/15/2018); Cardiac catheterization (02/24/2018); Cardiac catheterization (09/27/2015); Coronary stent placement; Coronary artery bypass graft; and Tonsillectomy. Social History He reports that he has [...] the morning., Disp: 90 tablet, Rfl: 3 aspirin 81 mg chewable tablet, Chew 1 [...] meal. Sliding scale, Disp: , Rfl: insulin degludec (TRESIBA FLEXTOUCH U-100 SUBQ), Inject 15 Units under the skin in the morning., Disp: , Rfl: insulin detemir (Levemir) 100 unit/mL injection, Inject 5 Units under the skin two times daily. SLIDING SCALE, Disp: , Rfl: isosorbide mononitrate ER (Imdur) 60 mg 24 hr tablet, Take 1 tablet (60 mg) by mouth 2 times daily., Disp: 180 tablet, Rfl: 3 levoFLOXacin (Levaquin) 250 mg tablet, , Disp: , Rfl: metoprolol succinate XL (Toprol-XL) 50 mg 24 hr tablet, Take 3 tablets (150 mg) by mouth in the morning for 97 doses. Do not crush or chew., Disp: 291 tablet, Rfl: 0 nitroglycerin (Nitrostat) 0.4 mg SL tablet, PLACE 1 TABLET UNDER TONGUE EVERY 5 MINS, UP TO 3 DOSESAS NEEDED FOR CHEST PAIN (Patient not taking: Reported on 09/29/2024), Disp: 90 tablet, Rfl: 2 pantoprazole (ProtoNix) [...] Disp: , Rfl: Last Recorded Vitals BP 112/70 (BP Location: Right arm, Patient Position: Sitting) Pulse 86 Ht 1.702 m (5' 7 ) Wt 81.2 kg (179 lb) SpO2 99% BMI 28.04 kg/m?? Physical Examination: GENERAL: alert and oriented [...] informed consent. he was brought to the laboratory associate in a fasting state. The right groin area was prepped and draped in usual fashion. Micropuncture technique was used under ultrasound guidance for access in the right common femoral artery. Inner cannular angiography was performed followed by upsizing to a 5-Polish x 11 cm sheath. Micropuncture technique was used under ultrasound guidance for access in the right common femoral vein and a 6-Polish x 11 cm sheath was placed. A 6-Polish Coffman catheter was used for right heart catheterization and measurement of pressures and calculation of cardiac output using the estimated Aayush method. Coffman catheter was removed. Bilateral selective coronary angiography was then performed using 5-Polish JL4 and JR4 diagnostic catheters. Catheters were removed. A 5-Polish IM diagnostic catheter was used to selectively engage the left subclavian artery and then selectively engage the left internal mammary artery. Angiography was performed. Catheter was removed. A 5-Polish JR4 diagnostic catheter was used for engagement of the saphenous venous graft to the OM and the saphenous venous graft to the diagonal branch, angiography was performed. A 5- Polish AR1 diagnostic catheter was used for engagement of the saphenous venous graft to the PDA, angiography was performed. Catheters were removed. Heparin was administered intravenously and therapeutic ACT was confirmed during the rest of the procedure. A 6-Polish LCB guiding catheter was advanced and used to engage the ostium of the saphenous venous graft to the OM. Baseline LISANDRA flow was 3. A DoubleMapwater coronary guide wire was advanced to the [...] artery calcifications seen on attenuation CT scan. Echocardiogram-[facility] Name: LANI LIZAMA Study Date: 08/14/2024 08:33 AM B/P: 118 mmHg/75 mmHg HR: 75 bpm Date of : 1950 Location: [facility] Height: 67 in. Age:73 year(s) Patient [...] mild ISR CATH 12/2021 Patent grafts, worsening eastern shoshone vessel disease S/p Successful balloon angioplasty and [...] and jardiance I25.10: Atherosclerotic heart disease of eastern shoshone coronary artery without angina pectoris 2. 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 Essential hypertension - 155/68 Controlled, continue current medication regimen but will increase amlodipine to 10 mg daily-pt to call for any concerns of increased [...] days. Qty: 90 tablet(s) Refills: 5 Pharmacy: [id number] 4. Hyperlipidemia - well controlled continue statin [...] -EF 15-20% per TTE 04/2023 -s/p BiV SLABBER-D 02/12/23 3rd degree AVB: -s/p PPM 03/2022 -s/p BiV ICD upgrade 02/12/23. Pt feels better althiough intitial ECHO shows EF 20%. Repeat ECHO [id number] 10. Bradycardia, Complete heart block s/p permanent [...] he is appropriately on a beta-jason, an [id number] and spironolactone. He has history of chronic kidney disease and a RAAS inhibitor/ARNI isrelatively contraindicated. He was on this in the past. Continue Imdur and calcium channel jason in the form of Norvasc. May uptitrate as needed for symptom relief. He is to follow-up with urology and his other specialists Return to clinic in 4-6 months or sooner should problems arise Pinky Bishop MD, MPH, [facility], [facility], [facility] Interventional Cardiology Pager Email: [email or web address] documented in this encounter Plan of Treatment Upcoming Encounters Date Type Department Care Team (Latest Contact Info) Description 11/11/2024 8:30 AM EDT Hospital Encounter [facility] Main Operating Room [address] [place] [address] Last Mcmanus MD [address] [place] [address] Dr Fel[address] [place] [address] 11/11/2024 8:30 AM EDT - 11/11/2024 10:00 AM EDT Surgery [facility] Main Operating Room [address] [place] [address] Last Mcmanus MD [address] [place] [address] [place] [address] TURBT (TRANSURETHRAL RESECTION OF BLADDER TUMOR) [26186 (CPT )] Scheduled Procedures Name Priority Associated Diagnoses Date/Ti me TURBT (TRANSURETHRAL RESECTION OF BLADDER TUMOR) Malignant neoplasm of urinary bladder, unspecified site (CMS/HCC) 11/11/2024 8:30 AM EDT documented as of this encounter Visit Diagnoses Diagnosis Cardiac pacemaker in situ- Primary NSTEMI (non-ST elevated myocardial infarction) (CMS/HCC) Acute myocardial infarction, subendocardial infarction, episode of care unspecified Coronary artery disease involving eastern shoshone coronary artery of eastern shoshone heart without angina pectoris Hypertension, unspecified type Coronary artery disease of eastern shoshone artery of eastern shoshone heart with stable angina pectoris Malignant neoplasm of urinary bladder, unspecified site (CMS/HCC) documented in this encounter Care Teams Parquet Floor Layer Relationship Specialty Start Date End Date Harley Goodman DO [address] [place] [address] [place] [address] PCP - General 03/02/22 documented as of this encounter
[2024-10-11] VITALS (8 sets, daily range): BP systolic 100–155; BP diastolic 66–73; PULSE 82–88; TEMP 36.4; O2SAT 97–98; BMI 27.9
--- OUTSIDE RECORDS SUMMARY | 2024-10-11 19:33 | XMS_ITS ---
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 10/01/2024 Bladder mass 10/01/2024 BPH associated with nocturia 10/01/2024 Cholelithiasis 10/01/2024 Controlled diabetes mellitus with diabetic polyneuropathy, with long-term current use of insulin 10/01/2024 Diabetic retinopathy 10/01/2024 Former smoker 10/01/2024 Ischemic cardiomyopathy 10/01/2024 Obesity 10/01/2024 Pacemaker 10/01/2024 Stage 3b chronic kidney disease (CKD) 10/01/2024 Lesion of bladder 08/28/2024 Chest pain 08/13/2024 [...] (03/21/2022): Added automatically from request for surgery [id number] Gastroesophageal reflux disease 03/02/2022 Increased immunoglobulin 03/02/2022 [...] check diet Coronary artery disease invo lving nome coronary artery of nome heart 09/19/2011 Assessment & Plan (08/13/2024 1:28 [...]
--- OUTSIDE RECORDS SUMMARY | 2024-10-11 19:33 | XMS_ITS | Clinical Summary ---
Author Organization [facility] Address [address] [place] [address] Care Team Providers Care Ergonomist Name Role Phone Harley Goodman Primary Care Provider [phone] Allergies Active Allergy Reactions Criticality Noted Date [...] Inject under the skin. Active HYDROcodone-diony taminophen ([place]) 5-325 MG tablet TAKE 1 TABLET BY [...] AM EDT Office Visit [facility] [address] [facility] [address] [place] [address] Kenneth Aguilar DPM Diabetes 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, without long-term current use of insulin (HCC) (Primary Dx); Pain due to onychomycosis of toenails of both feet; Xerosis cutis 09/24/2024 Bamboo flowsheet [facility] [address] [facility] [address] [place] [id number] Kenneth Aguilar DPM 09/24/2024 Travel from Last [...] Office Visit [facility] [address] [facility] [address] [place] [address] Kenneth Aguilar DPM [address] [facility] [address] [place] [address] Health Maintenance Due Date Last Done Comments CT Colonography 1950 FIT 1950 FOBT 1950 Sigmoidoscopy 1950 FIT-DNA 08/16/2023 08/15/2020 Influenza Vaccine (#1) 2024 , 12/13/2022, 12/15/2021, Additional history exists Colonoscopy 07/11/2031 07/10/2021 Colorectal Cancer Screening 07/11/2031 Pneumococcal Vaccine: 65+ Years Completed 01/17/2018, 11/14/2016, 04/02/2016 Insurance [employer] Care Teams Ergonomist Relationship Specialty Start Date End Date Harley Goodman DO [address] [facility] [place] [id number] PCP - General Internal Medicine 11/07/23
--- OUTSIDE RECORDS SUMMARY | 2024-10-11 19:33 | XMS_ITS | CCD ---
Author Organization [facility] CliniSyid Care Team Providers Care Hop Trainer Name Role Phone NETO BISHOPAB Nakul Admitting Unavailable PINKY BISHOP Attending Unavailable HARLEY CRESPO Referring Unavailable HARLEY CRESPO Primary Care Unavailable ELTAADARSH, PINKY A Surgeon Unavailable SD Procedure Practitioner Unavailab le VIJAY, PINKY Mota Admitting Unavailable PINKY BISHOP Attending Unavailable HARLEY CRESPO Referring Unavailable HARLEY CRESPO Primary Care Unavailable Arlen Kwong Unavailable Kingsley Woods Unavailable Shannon Escobar Unavailable HARLEY CRESPO Primary Care Physician [phone] Harley Crespo DO Primary Care Provider DO Harley Crespo Primary Care Provider [phone] JULY Kwong Attending Provider [phone] JessicangDO Gagan walls Admit Provider [phone] JessicangDO Gagan walls Attending Provider Harley Crespo Unavailable VIJAY, DR LOWE Consulting Unavailable CHERIE, DR CARVALHO Primary Care Unavailable ELTAHAWJo, DR LOWE Attending Unavailable ELTAHAWJo, DR LOWE Admitting Unavailable VLAD, DR PARUL Sanchez Procedure Practitioner Unavaila ble ALVA ., DR OBDULIO Cisneros Attending Unavailable ALVA ., DR OBDULIO Cisneros Admitting Unavailable VLAD, DR PARUL Sanchez Consulting Unavailable CHERIE, DR CARVALHO Primary Care Unavailable ALVA ., DR OBDULIO Cisneros Consulting Unavailable JASPAL [...] DR CARVALHO Admitting Unavailable ZIEBER, DR HIGINIO Snachez Consulting Unavailable BALL, DR CARVALHO Admitting Unavailable [...] Provider Harley Crespo MD Primary Care Provider Cherie BRUMFIELD, Harley Primary Care Provider [phone] Lani LEMUS, Tamara Álvarez Attending Provider Cherie BRUMFIELD, Harley Primary Care Provider Tamara Amaro MD Attending Provider Jason LARKIN R Admitting Unavailable LARKIN, Jason R Referring Unavailable LARKIN, Jason R Attending Unavailable LARKIN, Jason R Attending Unavailable CHAYA, Jason R Admitting Unavailable HARLEY CRESPO Referring Unavailable CHAYA, Jason Sanchez Attending Unavailable Harley Crespo DO Primary Care Provider Kingsley Woods Admitting Unavailable LatishaKingsley Attending Unavailable Cherie, Harley Admitting Unavailable Ball, Harley Attending Unavailable Cherie, Harley Primary Care Unavailable Tamara Amaro Admitting Unavail able Lani, Tamara Álvarez Attending Unavail able NON STAFF Admitting Unavailable NON STAFF Attending Unavailable KENNETH TAVERA Attending Unavailable KENNETH TAVERA Attending Unavailable KENNETH TAVERA Attending Unavailable KENNETH TAVERA Attending Unavailable KENNETH TAVERA Attending Unavailable HEMALATHA LAGOS Referring Unavailable HORANI, DEJUAN Admitting Unavailable SELLERS, ARAMIS Attending Unavailable JENNIKEVIN Referring Unavailable JENNI, KEVIN Referring Unavailable JENNI, KEVIN Referring Unavailable JENNI, KEVIN Referring Unavailable JENNI, KEVIN Referring Unavailable JENNI, KEVIN Referring Unavailable JENNI, KEVIN Referring Unavailable JENNI, KEVIN Referring Unavailable ELTAHAWY, EHAB Attending Unavailable ELTAHAWY, EHAB Attending Unavailable EKWENNA, OBI Referring Unavailable EKWENNA, OBI Referring Unavailable CRISTOPHER, EMEKA Referring Unavailable JENNI, KEVIN Referring Unavailable YESY, TATIANNA Referring Unavailable YESY, TATIANNA Referring Unavailable YESY, TATIANNA Referring Unavailable JENNI, KEVIN Referring Unavailable JENNI, KEVIN Referring Unavailable JENNI, KEVIN Referring Unavailable JENNI, KEVIN Referring Unavailable KEVIN ARTEAGA Referring Unavailable KEVIN ARTEAGA Attending Unavailable EKWENNA, OBI Attending Unavailable YFN YOST Referring Unavailable AMERICO, BONAVENTURE Referring Unavailable AMERICO, BONAVENTURE Referring Unavailable KATARZYNA YOUNGBLOOD Referring Unavailable DEJUAN POPE Admitting Unavailable SP SANCHEZ Attending Unavailable EKWENNA, OBI Admitting Unavailable EKWENNA, OBI Attending Unavailable Allergies Allergy Classification Reported Allergen(s) Allergy Type Date of Onset Reaction(s) Facility (1 source) 59892,00; Translations: [Unknown] Propensity to adverse reactions (disorder) 02-10-20 [facility] Repository (8 sources) semaglutide; Translations: [semaglutide] Allergy to substance 05-28-19 Gastrointestinal Upset [facility] Comment on above: constipation (1 source) No Known Medication Allergies; Translations: [No Known Medication Allergies] Propensity to adverse reactions (disorder) [facility] Repository Medications Current Medications Medication Drug Class(es) [...] six hours as needed for pain HYDROcodone-acetaminophen ([place]) 5-325 MG tablet TAKE 1 TABLET BY [...] (20 sources) alpha-Adrenergic Jason, beta-Adrenergic Jason Start: End: 4 take 1 tablet by mouth [...] capsule (20 sources) Vitamin D Start: 07-02-19 24 take 1 capsule by mouth once daily [...] 75 mg tablet Discontinued 0 .ROUTE .COMPLEX June 18, 2023 4:03pm October 17, 2023 [...] ointment Active 1 APPLIC TOPICAL Twice daily 22 10 May 1st, 2025 12:00am nitroglycerin 0.4 mg sublingual tablet (20 [...] 2023 8:46am take 1 tablet by bhavik every twenty-four hours Vitamin B-1 100 MG [...] procedure, # 2 tab(s), Refills(s) 0, Pharmacy: [facility]/pharmacy #[id number], 169, cm, 08/03/24 13:56:00 EDT, [...] 18, 2023 11:58am [facility] Farxiga 10 MG 1 tablet Orally Once a day Not-Taking/PRN docusate sodium 100 mg oral capsule (20 sources) Start: 06-18-2023 End: 08-12-2023 take 1 capsule by mouth once daily Docusate Sodium 100 mg capsule Discontinued 100 MG PO Daily June 18, 2023 12:00am August 12, 2023 8:42am take 1 capsule by mo [facility] every twenty-four hours Colace 100 MG 1 [...] (3 mL) Insulin Pen (17 sources) Start: 2 End: 4 inject 5 [...] 12:00am July 10, 2021 9:59am triamcinolone acetonide 0.32425 mg/mg topical ointment (1 source) Corticosteroid triamcinolone [...] pain; Translations: [Right lower quadrant pain] Onset: Episodic Acute myocardial infarction (20 sources) Myocardial [...] due to drugs Episodi c Conduction disorders (16 sources) Atrioventricular block, complete; Translations: [Presence of [...] 25%, LVH, normal RV size/function - 07/2024,BiV JOB PRINTER-D 01/2023 Coronary atherosclerosis and other heart disease (20 sources) Multi vessel coronary artery disease; Translations: [Atherosclerotic heart disease of [place] coronary artery without angina pectoris] Onset: 3 [...] sources) Long-term current use of insulin; Translations: [halfway (current) use of insulin] Episodic Other aftercare (11 sources) halfway (current) use of insulin; Translations: [halfway current use of insulin Z79.4] Onset: 1 [...] 4 09-07-2021 Episodic Comment on above: PSA: 07/2023 Other skin disorders (4 sources) Asteatosis [...] 10-12-2022 10-12-2022 Episodic Other aftercare (1 source) long term care phlebotomist (current) use of aspirin; Translations: [HALFWAY CURRENT USE OF ASPIRIN] Onset: 04-03-2022 Episodic Other aftercare (1 source) Other usp (current) drug therapy; Translations: [OTH HALFWAY CURRENT [...] Name Value Interpretation Reference Range Facility 36on 10-08-2024 36 Since catheter has b een removed after TURBT, pt feels like he is emptying well and the flow is good, however he is complaining of bladder spasms and leaking urine without notice. Pt was wondering if there was a prescription that can be ordered for him. This will be discussed with Dr. Mcmanus and patient was informed he would receive a call back with his response. Pt verbalized understanding. Normal [facility] Office Visiton 10-08-2024 Follow-up visit [id number] Lani Lizama 1950 M Date Provider Department Center 10/08/2024 Scott-PINKY BISHOP MARCELINO Armas Family History Problem Relation Age of Onset Heart attack Mother Other Father Other Brother Heart attack Maternal Grandmother Heart attack Maternal Grandfather Family Status - Relation Status Age at Mother Father Brother Maternal Grandmother Maternal Grandfather Level of Service:73735 SD OFFICE/OUTPATIENT ESTABLISHED LOW MDM 20 MIN Normal [facility] HISTOLOGY - TISSUE EXAMon LAB AP CASE REPORT Normal [facility] Comment on above: Order Comment: Pre-o p diagnosis:Lesion of bladder [N32.9] Result Comment: Surg ical Pathology Case: [id number] Authorizing Provider: Last Mcmanus MD Collected: 09/29/2024 1432 Ordering Location: [facility] Main Operating Room Received: 09/29/2024 1514 Pathologist: Kevin Dawson MD Specimen: Urinary Bladder, Bladder Tumor Performed By: #### L [id number] #### [facility] ([facility]) [address] [place] [address] LAB AP CLINICAL INFORMATION [facility] Comment on above: Order Comment: Pre-o p diagnosis:Lesion of bladder [N32.9] Result Comment: Post -Op Diagnoses N32.9 - Lesion of bladder [ICD-10-CM] Performed By: #### L [id number] #### [facility] ([facility]) [address] [place] [address] LAB AP DIAGNOSIS COMMENT This case was reviewed in intradepartmental consensus with agreement of the diagnosis. [facility] Comment on above: Order Comment: Pre-o p diagnosis:Lesion of bladder [N32.9] Performed By: #### L [id number] #### [facility] [address] [place] [address] LAB AP GROSS DESCRIPTION [facility] Comment on above: Order Comment: Pre-o p diagnosis:Lesion of bladder [N32.9] Result Comment: A. U rinary Bladder. The specimen is received in formalin labeled Lani Mega and bladder tumor. It consists of a 2.7 x 2.5 x 0.6 cm aggregate of red-pink to vázquez-brown, rubbery, shaggy fragments of soft tissue. The specimen is entirely submitted in 3 cassettes. Sangeetha Muro, Pathologists' Chemical Research Engineer student Hugo Suárez, Pathologists' Chemical Research Engineer Performed By: #### L [id number] #### [facility] ([facility]) [address] [place] [address] LAB AP MICROSCOPIC DESCRIPTION Microscopic examination performed. [facility] Comment on above: Order Comment: Pre-o p diagnosis:Lesion of bladder [N32.9] Performed By: #### L [id number] #### [facility] [address] [place] [address] LAB AP PRELIMINARY DIAGNOSIS [facility] Comment on above: Order Comment: Pre-o p diagnosis:Lesion of bladder [N32.9] Performed By: #### L [id number] #### [facility] [address] [place] [address] LAB AP REPORT FINAL DIAGNOSIS NARRATIVE [facility] Comment on above: Order Comment: Pre-o p diagnosis:Lesion of bladder [N32.9] Result Comment: A. B ladder tumor, transurethral resection: - Invasive high-grade papillary urothelial carcinoma. - Small fragments of muscularis propria present, uninvolved by neoplasm. - See synoptic report. at 1104 EDT Performed By: #### L [id number] #### [facility] ([facility]) [address] [place] [address] LAB AP SYNOPTIC CHECKLIST [facility] Comment on above: Order Comment: Pre-o p diagnosis:Lesion of bladder [N32.9] Result Comment: URIN LEE ANN BLADDER: Biopsy and Transurethral Resection of Bladder [...] Muscularis Propria (detrusor muscle): Present in specimen Performed By: #### L [id number] #### [facility] [address] [place] [address] [facility] 09-29-2024 HP ----- ----- Attestation signed by Last Mcmanus MD at 09/30/2024 9:27 AM By using the attestations below, the signing [...] be an additional personal documentation from me. ----- Interval update History and physical from 09/25/24 reviewed. There are no changes. No acute issues. Patient examined. Patient Vitals for the past 24 hrs: BP Temp Temp src Pulse Resp SpO2 Height Weight 09/29/24 1106 142/73 36 ???C (96.8 ???F) Temporal 81 18 99 % 1.702 m (5' 7 ) 83.4 kg (183 lb 13.8 oz) Heart rate regular No increased work of breathing. There has been no change to the plan. Marquis Baltazar MD 09/29/2024 Normal [facility] NON-SLIP COVER CUTTER CYTOLOGY - CELLULAR EXAMon 09-29-2024 LAB AP CASE REPORT [facility] Comment on above: Order Comment: Pre-o p diagnosis:Lesion of bladder [N32.9] Result Comment: Non- gynecologic Cytology Case: [id number] Authorizing Provider: Last Mcmanus MD Collected: 09/29/2024 1416 Ordering Location: [facility] Main Operating Room Received: 09/30/2024 0804 Pathologist: Omayra Sullivan MD Specimen: Urine Performed By: #### L [id number] ####[facility] ([facility])[address] [place] [address] LAB AP CLINICAL INFORMATION [facility] Comment on above: Order Comment: Pre-o p diagnosis:Lesion of bladder [N32.9] Result Comment: Post -Op Diagnoses N32.9 - Lesion of bladder [ICD-10-CM] Performed By: #### L [id number] ####[facility] ([facility])[address] [place] [address] LAB AP DIAGNOSIS COMMENT See also concurrent surgical case, [id number]. [facility] Comment on above: Order Comment: Pre-o p diagnosis:Lesion of bladder [N32.9] Performed By: #### L [id number] ####[facility] ([facility])[address] [place] [address] LAB AP GROSS DESCRIPTION [facility] Comment on above: Order Comment: Pre-o p diagnosis:Lesion of bladder [N32.9] Result Comment: 80 m L clear, yellow fluid Performed By: #### L [id number] ####[facility] ([facility])[address] [place] [address] LAB AP REPORT FINAL DIAGNOSIS NARRATIVE [facility] Comment on above: Order Comment: Pre-o p diagnosis:Lesion of bladder [N32.9] Result Comment: Val gaitan, cystoscopic: - Atypical urothelial cells. - Marked acute inflammation. 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 at 1805 EDT Performed By: #### L [id number] ####[facility] ([facility])[address] [employer] [place] [address] POCT GLUCOSE METER UNSOLICIT ED RESULTSon 09-29-2024 Glucose [Mass/Vol] 143 mg/dL High 70-105 [facility] Comment on above: Order Comment: Waive d Testing in the ED is performed under the ED CLIA certificate #[id number]. Result Comment: abdon iso4 Performed By: #### L [id number] #### [facility] ([facility]) [address] [place] [address] Glucose [Mass/Vol] 211 mg/dL High 70-105 [facility] Comment on above: Order Comment: Waive d Testing in the ED is performed under the ED CLIA certificate #[id number]. Result Comment: acas til5 Performed By: #### L [id number] #### [facility] ([facility]) [address] [place] [address] HPon 09-25-2024 HP Pre-Anesthesia Clini c 09/25/24 Pt presents for Pre Anesthesia Clinic visit with son. Pt is scheduled 09/29/[address] Mcmanus to under go procedure: TURBT under General on 09/29/24. Harley Crespo, DO [address] [facility] [address] [facility]/pharmacy #[id number] [place], [place] [address] [facility] [address] [address] [facility] - [place], [place] - [address] [place] [address] [place] [address] [facility] [address] Subjective Vitals: 09/25/24 0856 BP: 153/74 Pulse: 80 Resp: 18 Temp: 36.3 ???C (97.4 ???F) SpO2: 98% Allergies[1] Medication Documentation Review Audit Reviewed by Shannon Mi MA (Production Stage Manager) on 08/28/24 at 0832 Medication Order Taking? Sig Documenting Provider Last Dose Status ALPRAZolam (Xanax) 0.5 mg tablet [id number] Take 1 tablet by mouth in the morning, afternoon, and at bedtime. Historical Provider, Active amLODIPine (Norvasc) 5 mg tablet [id number] Take 1 tablet (5 mg) by mouth in the morning for 30 doses. Graeme Sorensen MD Active aspirin 81 mg chewable tablet [id number] Chew 1 tablet every day by oral route. Historical ProviderMD Active cholecalciferol (Vitamin D3) 25 MCG (1000 units) tablet [id number] Take 1,000 Units by mouth in the morning. Racquel ProviderMD Active clopidogrel (Plavix) 75 mg tablet [id number] Take 1 tablet by mouth in the morning. Racquel Marcelo MD Active docusate sodium (Colace) 100 mg capsule [id number] Take 100 mg by mouth in the morning. Racquel Marcelo MD Active empagliflozin (Jardiance) 10 mg [id number] Take 1 tablet every day by oral route. Racquel ProviderMD Active insulin aspart (NovoLOG) 100 unit/mL injection vial [id number] Inject 10 Units under the skin with breakfast, with lunch, and with evening meal. Sliding scale Racquel ProviderMD Active insulin detemir (Levemir) 100 unit/mL injection [id number] Inject 5 Units under the skin two times daily. Racquel Marcelo MD Active isosorbide mononitrate ER (Imdur) 60 mg 24 hr tablet [id number] Take 1 tablet (60 mg) by mouth 2 times daily. Carlos A Duarte MD 08/20/24 235 metoprolol succinate XL (Toprol-XL) 50 mg 24 hr tablet [id number] Take 3 tablets (150 mg) by mouth in the morning for 97 doses. Do not crush or chew. Aramis Sellers MD 08/20/24 235 nitroglycerin (Nitrostat) 0.4 [address] SL tablet [id number] PL[address] 1 TABLET UNDER TONGUE EVERY 5 MINS, UP TO 3 DOSES NEEDED FOR CHEST PAIN Pinky Bishop MD Active pantoprazole (ProtoNix) 40 mg EC tablet [id number] TAKE 1 TABLET BY MOUTH DAILY ON AN EMPTY STOMACH FOLLOWED BY BREAKFAST 30 MINUTES AFTER Racquel Marcelo MD Active ranolazine (Ranexa) 500 mg 12 hr tablet [id number] Take 1 tablet (500 mg) by mouth two times daily. Do not crush, chew, or split. Pinky Bishop MD Active rosuvastatin (Crestor) 40 mg tablet [id number] TAKE 1 TABLET BY MOUTH AT BEDTIME Kevin Arteaga MD Active spironolactone (Aldactone) 25 mg tablet [id number] Take 1 tablet (25 mg) by mouth in the morning. Pinky Bishop MD Active thiamine (Vitamin B-1) 100 mg tablet [id number] Take 100 mg by mouth every other day. Historical Provider, Active thiamine (Vitamin B-1) 250 mg tablet [id number] Take 250 mg by mouth every other day. Historical Provider, Active Immunization History Administered Date(s) Administered Influenza Whole 01/19/2008 Influenza, High Dose Seasonal, Preservative Free 01/16/2017 Influenza, Seasonal, Quadrivalent, Adjuvanted 12/15/2021 Influenza, injectable, quadrivalent, preservative free 11/30/2016 Influenza, seasonal, injectable 12/13/2010, 01/23/2012 Influenza, trivalent, adjuvanted 01/17/2018 Novel derepbtst-J0T2-21, preservative-free 01/27/2009 Pfizer SARS-CoV-2 Vaccination 05/30/2020, 06/21/2020, [...] Pt reports had recent labs done at [facility]. PAC - RN to obtain results of preop labs. EKG on 08/13/24 : Biventricular Pacer Patient was recently hospitalized on 08/14/24 with NSTEMI and ideally needed coronary angiogram, however patient referred to be discharged. Medications were adjusted particular Norvasc added to his regimen and he was discharged on (more content not included)... Normal [facility] Orders Onlyon 09-25-2024 Orders Only [id number] Lani Lizama Nakul 1950 M Date Provider Department Center 09/25/2024 Iliana-LATONYA RAMESH [facility] PAC ID Medical C Family History Problem Relation Age of Onset Heart attack Mother Other Father Other Brother Heart attack Maternal Grandmother Heart attack Maternal Grandfather Family Status - Relation Status Age at Mother Father Brother Maternal Grandmother Maternal Grandfather Normal [facility] Orders Only [id number] Lani Lizama 1950 M Date Provider Department Center 09/25/2024 ALEX HODGES [facility] C Family History Problem Relation Age of Onset Heart attack Mother Other Father Other Brother Heart attack Maternal Grandmother Heart attack Maternal Grandfather Family Status - Relation Status Age at Mother Father Brother Maternal Grandmother Maternal Grandfather Normal [facility] Orders Only [id number] Lani Lizama 1950 M Date Provider Department Center 09/25/2024 ROCIO HERNANDEZ [facility] C Family History Problem Relation Age of Onset Heart attack Mother Other Father Other Brother Heart attack Maternal Grandmother Heart attack Maternal Grandfather Family Status - Relation Status Age at Mother Father Brother Maternal Grandmother Maternal Grandfather Normal [facility] Orders Only [id number] Lani Lizama 1950 M Date Provider Department Center 09/25/2024 ROCIO HERNANDEZ [facility] C Family History Problem Relation Age of Onset Heart attack Mother Other Father Other Brother Heart attack Maternal Grandmother Heart attack Maternal Grandfather Family Status - Relation Status Age at Mother Father Brother Maternal Grandmother Maternal Grandfather Normal [facility] Pre-Admission Testingon 08-31 Pre-Admission Testing [id number] [place] Lizama 1950 M Date Provider Department Center 09/25/202473386[id number] C Family History Problem Relation Age of Onset Heart attack Mother Other Father Other Brother Heart attack Maternal Grandmother Heart attack Maternal Grandfather Family Status - Relation Status Age at Mother Father Brother Maternal Grandmother Maternal Grandfather Normal [facility] 36on 09-21-2024 36 Patient would like p reop lab order to be faxed to [facility]#[phone]. Thank you This phone message was created by the Ambulatory float staff. If you need sales support specialist follow up regarding this patient, please make your appropriate clinic staff member aware. Thank you. Normal [facility] Urine Cultureon 09-21-2024 Bacteria identified Cx Nom (U) >100,000 colonies/ml mixed bacterial skin contaminants 2 Days PERFORMED BY: [facility] [address] [place] [id number] PATHOLOGIST MEDIA RELATIONS DIRECTOR CARSON ADAMES M.D. Normal [facility] Comment on above: Performed By: #### C UU #### [facility] [address] [place] [address] [facility] Orders Onlyon 09-18-2024 Orders Only [id number] Lani Lizama 1950 [facility] Provider Department Center 09/18/20242003YING BADILLOGAGAN [facility] Family History Problem Relation Age of Onset Heart attack Mother Other Father Other Brother Heart attack Maternal Grandmother Heart attack Maternal Grandfather Family Status - Relation Status Age at Mother Father Brother Maternal Grandmother Maternal Grandfather Normal [facility] Orders Onlyon 09-02-2024 Orders Only [id number] Lani Lizama 1950 M Date Provider Department Center 09/02/20242003YING BADILLOGAGAN [facility] Family History Problem Relation Age of Onset Heart attack Mother Other Father Other Brother Heart attack Maternal Grandmother Heart attack Maternal Grandfather Family Status - Relation Status Age at Mother Father Brother Maternal Grandmother Maternal Grandfather Normal [facility] APTTon 08-28-2024 ACTIVATED PARTIAL THROMBOPLASTIN TIME IN PPP BY COAGULATION ASSAY 29.3 Seconds Normal 25.0-35.0 [facility] Comment on above: Result Comment: Clin ical significance of the APTT is questionable in the presence of heparin. Performed By: #### L [id number] #### [facility] ([facility]) [address] [place] [address] CBC WITH AUTO DIFFERENTIALon 08-28-2024 Basophils (Bld) [#/Vol] 0.09 10*3/uL Normal 0.00-0.20 [facility] Comment on above: Performed By: #### L [id number] #### [facility] FACILITY LAB (BEAKER) [address] [place] [address] Basophils/100 WBC (Bld) 0.9 % Normal 0.0-1.0 [facility] Comment on above: Performed By: #### L [id number] #### [facility] ([facility] [address] [place] [address] Eosinophils (Bld) [#/Vol] 0.17 10*3/uL Normal 0.00-0.50 [facility] Comment on above: Performed By: #### L [id number] #### [facility] ([facility]) [address] [place] [address] Eosinophils/100 WBC (Bld) 1.8 % Normal 0.0-6.0 [facility] Comment on above: Performed By: #### L [id number] #### [facility] ([facility]) [address] [place] [address] Erythrocyte distribution width (RBC) [Ratio] 14.1 % Normal 11.5-15.0 [facility] Comment on above: Performed By: #### L [id number] #### [facility] ([facility]) [address] [place] [address] ERYTHROCYTE MEAN CORPUSCULAR HEMOGLOBIN CONCENTRATION (G/DL) BY AUTOMATED 32.1 g/dL Normal 32.0-35.0 [facility] Comment on above: Performed By: #### L [id number] #### [facility] ([facility] [address] [place] [address] Hematocrit (Bld) [Volume fraction] 44.8 % Normal 39.0-50.0 [facility] Comment on above: Performed By: #### L [id number] #### [facility] (BEAKER) [address] [place] [address] Hemoglobin (Bld) [Mass/Vol] 14.4 g/dL Normal 13.0-17.0 [facility] Comment on above: Performed By: #### L [id number] #### [facility] ([facility] [address] [place] [address] Immature granulocytes (Bld) [#/Vol] 0.06 10*3/uL Normal 0.00-0.20 [facility] Comment on above: Performed By: #### L [id number] #### [facility] ([facility]) [address] [place] [address] Immature granulocytes/100 WBC (Bld) 0.6 % Normal 0.0-1.0 [facility] Comment on above: Performed By: #### L [id number] #### [facility] ([facility]) [address] [place] [address] Lymphocytes (Bld) [#/Vol] 1.81 10*3/uL Normal 1.20-4.00 [facility] Comment on above: Performed By: #### L [id number] #### [facility] ([facility]) [address] [place] [address] Lymphocytes/100 WBC (Bld) 18.9 % Low 20.0-45.0 [facility] Comment on above: Performed By: #### L [id number] #### [facility] ([facility]) [address] [place] [address] MCH (RBC) [Entitic mass] 29.2 pg Normal 27.0-33.0 [facility] Comment on above: Performed By: #### L [id number] #### [facility] ([facility]) [address] [place] [address] MCV (RBC) [Entitic vol] 90.9 fL Normal 82.0-98.0 [facility] Comment on above: Performed By: #### L [id number] #### [facility] ([facility]) [address] [place] [address] Monocytes (Bld) [#/Vol] 0.76 10*3/uL Normal 0.10-1.00 [facility] Comment on above: Performed By: #### L [id number] #### [facility] (BEAKER) [address] [place] [address] Monocytes/100 WBC (Bld) 7.9 % Normal 5.0-12.0 [facility] Comment on above: Performed By: #### L [id number] #### [facility] ([facility] [address] [place] [address] Neutrophils (Bld) [#/Vol] 6.71 10*3/uL Normal 1.60-7.60 [facility] Comment on above: Performed By: #### L [id number] #### [facility] ([facility]) [address] [place] [address] Neutrophils/100 WBC (Bld) 69.9 % Normal 40.0-72.0 [facility] Comment on above: Performed By: #### L [id number] #### [facility] ([facility]) [address] [place] [address] NRBC (PER 100 WBCS) BY AUTOMATED COUNT 0.0 % Normal 0 [facility] Comment on above: Performed By: #### L [id number] #### [facility] ([facility]) [address] [place] [address] PLATELETS (10*3/UL) IN BLOOD AUTOMATED COUNT 278 10*3/uL Normal 150-400 [facility] Comment on above: Performed By: #### L [id number] #### [facility] ([facility]) [address] [place] [address] RBC (Bld) [#/Vol] 4.93 10*6/uL Normal 4.20-5.70 [facility] Comment on above: Performed By: #### L [id number] #### [facility] ([facility]) [address] [place] [address] WBC (Bld) [#/Vol] 9.60 10*3/uL Normal 4.00-10.60 [facility] Comment on above: Performed By: #### L [id number] #### [facility] (BEAKER) [address] [place] [address] COMPREHENSIVE METABOLIC PANE Mike 08-28-2024 Albumin [Mass/Vol] 4.5 g/dL Normal 3.5-5.7 [facility] Comment on above: Performed By: #### L [id number] ####[facility] (BEAKER)[address] [place] [address] ALP [Catalytic activity/Vol] 117 U/L High 34-104 [facility] Comment on above: Performed By: #### L [id number] ####[facility] (BEAKER)[address] [place] [address] ALT [Catalytic activity/Vol] 17 U/L Normal 7-52 [facility] Comment on above: Performed By: #### L [id number] ####[facility] (BEAKER)[address] [place] [address] Anion gap [Moles/Vol] 11 mmol/L Normal 7-20 [facility] Comment on above: Performed By: #### L [id number] ####[facility] (BEAKER)[address] [place] [address] AST [Catalytic activity/Vol] 20 U/L Normal 13-39 [facility] Comment on above: Performed By: #### L [id number] ####[facility] (BEAKER)[address] [place] [address] Bilirubin [Mass/Vol] 0.6 mg/dL Normal 0.3-1.0 [facility] Comment on above: Performed By: #### L [id number] ####[facility] (BEAKER)[address] [place] [address] Calcium [Mass/Vol] 9.6 mg/dL Normal 8.6-10.3 [facility] Comment on above: Performed By: #### L [id number] ####[facility] (BEAKER)[address] [place] [address] Chloride [Moles/Vol] 105 mmol/L Normal 98-107 [facility] Comment on above: Performed By: #### L [id number] ####[facility] (BEAKER)[address] [place] [address] CO2 [Moles/Vol] 28 mmol/L Normal 21-31 [facility] Comment on above: Performed By: #### L [id number] ####[facility] (BEAKER)[address] [place] [address] Creatinine [Mass/Vol] 1.95 mg/dL High 0.70-1.30 [facility] Comment on above: Performed By: #### L [id number] ####[facility] ([facility] [place] [address] GLOMERULAR FILTRATION RATE ML/MIN/1.73 SQ M.PREDICTED 35.9 mL/min/1.73m*2 Low >60.0 [facility] Comment on above: Result Comment: The [facility]???s estimated glomerular filtration rate (eGFR) will no [...] group of individuals. Performed By: #### L [id number] ####[facility] (BEAKER)[address] [place] [address] Glucose [Mass/Vol] 185 mg/dL High 70-100 [facility] Comment on above: Performed By: #### L [id number] ####[facility] (BEAKER)[address] [place] [address] Potassium [Moles/Vol] 5.9 mmol/L High 3.5-5.1 [facility] Comment on above: Performed By: #### L [id number] ####[facility] (BEAKER)[address] [place] [address] Protein [Mass/Vol] 7.7 g/dL Normal 6.0-8.3 [facility] Comment on above: Performed By: #### L [id number] ####[facility] ([facility] [place] [address] Sodium [Moles/Vol] 138 mmol/L Normal 136-145 [facility] Comment on above: Performed By: #### L [id number] ####[facility] ([facility])[address] [place] [address] Urea nitrogen [Mass/Vol] 30 mg/dL High 7-25 [facility] Comment on above: Performed By: #### L [id number] ####[facility] ([facility])[address] [place] [address] UREA NITROGEN/CREATININE (MASS RATIO) IN SER/PLAS 15.4 [facility] Comment on above: Performed By: #### L [id number] ####[facility] ([facility])[address] [place] [address] Labon 08-28-2024 Lab [id number] Lani Lizama 1950 M Date Provider Department Center 08/28/2024 2245-[facility] OPD LAB RESOURCE [facility] OPD ID Medical C Family History Problem Relation Age of Onset Heart attack Mother Other Father Other Brother Heart attack Maternal Grandmother Heart attack Maternal Grandfather Family Status - Relation Status Age at Mother Father Brother Maternal Grandmother Maternal Grandfather Normal [facility] Office Visiton 08-28-2024 Follow-up visit [id number] Dorado 1950 M Date Provider Department Center 08/28/2024 [id number], OBI [facility] URO Second Fl Family History Problem Relation Age of Onset Heart attack Mother Other Father Other Brother Heart attack Maternal Grandmother Heart attack Maternal Grandfather Family Status - Relation Status Age at Mother Father Brother Maternal Grandmother Maternal Grandfather Level of Service:62324 SD OFFICE/OUTPATIENT ESTABLISHED MOD MDM 30 MIN Normal [facility] PROTIME-INRon 08-28-2024 INR IN PPP BY COAGULATION ASSAY 1.10 Normal 0.90-1.10 [facility] Comment on above: Result Comment: ACCC P [...] CHEST 1995;[id number]. Performed By: #### L [id number] ####[facility])[address] [place] [address] PROTHROMBIN TIME (PT) IN PPP BY COAGULATION ASSAY 14.2 Seconds Normal 12.3-14.8 [facility] Comment on above: Performed By: #### L [id number] ####[facility] [employer])[address] [place] [address] PSA, SCREENINGon 08-28-2024 PROSTATE SPECIFIC AG (NG/ML) IN SER/PLAS 1.5 ng/mL Normal 0.4-4 [facility] Comment on above: Performed By: #### L [id number] #### [facility]) [address] [place] [address] URINE CULTURE, ROUTINEon Bacteria identified Cx Nom (U) <10,000 CFU/ML No Significant Growth Normal [facility] Comment on above: Performed By: #### L [id number] ####[facility] [employer])[address] [place] [address] Laboratory - Chemistry and C hemistry - challengeon 08-27-2024 Bilirubin Ql (U) Negative NEGATIVE [facility] Glucose (U) [Mass/Vol] mg/dL Abnormal NEGATIVE Fi [facility] Ketones Ql (U) Negative NEGATIVE [facility] pH (U) 6.0 [pH] 5.0-9.0 [facility] Specific gravity (U) [Rel density] 1.025 1.005-1.02 5 [facility] Urobilinogen Qn (U) 1.0 {Luisito'U}/dL 0.2-1.0 [facility] Laboratory - Specimen inform ationon 08-27-2024 Appearance (U) SL CLOUDY CLEAR [facility] Color (U) YELLOW YELLOW [facility] Laboratory - Urinalysison Leukocyte esterase Test strip Ql (U) MODERATE Abnormal NEGATIVE [facility] Nitrite Ql (U) Negative NEGATIVE [facility] Protein Ql (U) >=300 mg/dL Abnormal NEG/TRACE [facility] No Panel Informationon 08-27 Urine Occult Blood LARGE Abnormal NEGATIVE [facility] Urine Cultureon 08-27-2024 Bacteria identified Cx Nom (U) <9,000 colonies/ml mixed bacterial skin contaminants 2 Days PERFORMED BY: [place] [address] PATHOLOGIST MEDIA RELATIONS DIRECTOR CARSON ADAMES M.D. Normal [facility] Comment on above: Performed By: #### C UU #### [address] Office Visiton 08-20-2024 Follow-up visit [id number] Lani Lizama 1950 M Date Provider Department Center 08/20/2024 PINKY JULES Family History Problem Relation Age of Onset Heart attack Mother Other Father Other Brother Heart attack Maternal Grandmother Heart attack Maternal Grandfather Family Status - Relation Status Age at Mother Father Brother Maternal Grandmother Maternal Grandfather Level of Service:43653 SD OFFICE/OUTPATIENT ESTABLISHED MOD MDM 30 MIN Normal [facility] 30on 08-14-2024 30 The patient is Moder [...] hemodynamic stability Outcome: Adequate for Discharge Normal [facility] 30 Lexiscan stress test Patient information sheet [...] and hemodynamically stable Full final report from bakery decorator to follow. Juli Salazar RN [facility] Cardiovascular Stress Lab Normal [facility] HIGH SENSITIVITY TROPONIN Io n 08-14-2024 HS TROPONIN I (NG/L) 160 ng/L Critically high <20 [facility] Comment on above: Performed By: #### L [id number] #### [facility] HOSPITAL LAB (BEAKER) [address] [place] [address] NURSNOTEon 08-14-2024 NURSNOTE Patient off the unit at 8:23 am for ECHO and stress test, returned to unit at 12:05 pm. Normal [facility] Orders Onlyon 08-14-2024 Orders Only [id number] Lani Lizama 1950 M Date Provider Department Center 08/14/2024 KEVIN DEMPSEY [facility] CARD ID HeartVAS Family History Problem Relation Age of Onset Heart attack Mother Other Father Other Brother Heart attack Maternal Grandmother Heart attack Maternal Grandfather Family Status - Relation Status Age at Mother Father Brother Maternal Grandmother Maternal Grandfather Normal [facility] POCT GLUCOSE METER UNSOLICIT ED RESULTSon 08-14-2024 Glucose [Mass/Vol] 155 mg/dL High 70-105 [facility] Comment on above: Order Comment: Waive d Testing in the ED is performed under the ED CLIA certificate #[id number]. Result Comment: dcun dic Performed By: #### L [id number] #### [facility] LAB (BEAKER) [address] [place] [address] Glucose [Mass/Vol] 251 mg/dL High 70-105 [facility] Comment on above: Order Comment: Waive d Testing in the ED is performed under the ED CLIA certificate #[id number]. Result Comment: jdlu gol Performed By: #### L [id number] ####[facility] LAB (BEAKER)[address] [place] [address] Glucose [Mass/Vol] 187 mg/dL High 70-105 [facility] Comment on above: Order Comment: Waive d Testing in the ED is performed under the ED CLIA certificate #[id number]. Result Comment: jdlu gol Performed By: #### L [id number] ####[facility] ([facility])[address] [place] [address] 30on 08-13-2024 30 The patient is Moder [...] and behaviors that affect risk of falls [facility] fall precautions as indicated by assessment Educate [...] dysrhythmias or at baseline Outcome: Progressing Normal [facility] Basophils Auto (Bld) [#/Vol] on 08-13-2024 Basophils (Bld) [#/Vol] Automated basophil count 0.0-0.1 [facility] Basophils/100 WBC Auto (Bld) on 08-13-2024 Basophils/100 WBC (Bld) Automated basophil % 0.2-2.0 [facility] CBC WITH AUTO DIFFERENTIALon 08-13-2024 Basophils (Bld) [#/Vol] 0.05 10*3/uL Normal 0.00-0.20 [facility] Comment on above: Performed By: #### L [id number] ####[facility] (BEAKER)[address] [place] [address] Basophils/100 WBC (Bld) 0.7 % Normal 0.0-1.0 [facility] Comment on above: Performed By: #### L [id number] ####[facility] LAB (BEAKER)[address] [place] [address] Eosinophils (Bld) [#/Vol] 0.14 10*3/uL Normal 0.00-0.50 [facility] Comment on above: Performed By: #### L [id number] ####[facility] LAB (BEAKER)[address] [place] [address] Eosinophils/100 WBC (Bld) 1.8 % Normal 0.0-6.0 [facility] Comment on above: Performed By: #### L [id number] ####[facility] LAB (BEAKER)[address] [place] [address] Erythrocyte distribution width (RBC) [Ratio] 14.6 % Normal 11.5-15.0 [facility] Comment on above: Performed By: #### L [id number] ####[facility] LAB (BEAKER)[address] [place] [address] ERYTHROCYTE MEAN CORPUSCULAR HEMOGLOBIN CONCENTRATION (G/DL) BY AUTOMATED 32.9 g/dL Normal 32.0-35.0 [facility] Comment on above: Performed By: #### L [id number] ####[facility] LAB (BEAKER)[address] [place] [address] Hematocrit (Bld) [Volume fraction] 39.8 % Normal 39.0-50.0 [facility] Comment on above: Performed By: #### L [id number] ####[facility] LAB (BEAKER)[address] [place] [address] Hemoglobin (Bld) [Mass/Vol] 13.1 g/dL Normal 13.0-17.0 [facility] Comment on above: Performed By: #### L [id number] ####[facility] LAB (BEAKER)[address] [place] [address] Immature granulocytes (Bld) [#/Vol] 0.03 10*3/uL Normal 0.00-0.20 [facility] Comment on above: Performed By: #### L [id number] ####[facility] LAB (BEAKER)[address] [place] [address] Immature granulocytes/100 WBC (Bld) 0.4 % Normal 0.0-1.0 [facility] Comment on above: Performed By: #### L [id number] ####[facility] LAB (BEAKER)[address] [place] [address] Lymphocytes (Bld) [#/Vol] 1.51 10*3/uL Normal 1.20-4.00 [facility] Comment on above: Performed By: #### L [id number] ####[facility] LAB (BEAKER)[address] [place] [address] Lymphocytes/100 WBC (Bld) 19.8 % Low 20.0-45.0 [facility] Comment on above: Performed By: #### L [id number] ####[facility] LAB (BEAKER)[address] [place] [address] MCH (RBC) [Entitic mass] 29.3 pg Normal 27.0-33.0 [facility] Comment on above: Performed By: #### L [id number] ####[facility] [place] [address] MCV (RBC) [Entitic vol] 89.0 fL Normal 82.0-98.0 [facility] Comment on above: Performed By: #### L [id number] ####[facility] ([facility])[address] [place] [address] Monocytes (Bld) [#/Vol] 0.57 10*3/uL Normal 0.10-1.00 [facility] Comment on above: Performed By: #### L [id number] ####[facility] ([facility])[address] [place] [address] Monocytes/100 WBC (Bld) 7.5 % Normal 5.0-12.0 [facility] Comment on above: Performed By: #### L [id number] ####[facility] ([facility])[address] [place] [address] Neutrophils (Bld) [#/Vol] 5.32 10*3/uL Normal 1.60-7.60 [facility] Comment on above: Performed By: #### L [id number] ####[facility] ([facility])[address] [place] [address] Neutrophils/100 WBC (Bld) 69.8 % Normal 40.0-72.0 [facility] Comment on above: Performed By: #### L [id number] ####[facility] ([facility] [place] [address] NRBC (PER 100 WBCS) BY AUTOMATED COUNT 0.0 % Normal 0 [facility] Comment on above: Performed By: #### L [id number] ####[facility] LAB (BEAKER)[address] [place] [address] PLATELETS (10*3/UL) IN BLOOD AUTOMATED COUNT 201 10*3/uL Normal 150-400 [facility] Comment on above: Performed By: #### L [id number] ####[facility] ([facility])[address] [place] [address] RBC (Bld) [#/Vol] 4.47 10*6/uL Normal 4.20-5.70 [facility] Comment on above: Performed By: #### L [id number] ####[facility] ([facility])[address] [place] [address] WBC (Bld) [#/Vol] 7.62 10*3/uL Normal 4.00-10.60 [facility] Comment on above: Performed By: #### L [id number] ####[facility] ([facility])[address] [place] [address] COMPREHENSIVE METABOLIC PANE Mike 08-13-2024 Albumin [Mass/Vol] 4.3 g/dL Normal 3.5-5.7 [facility] Comment on above: Performed By: #### L [id number] ####[facility] ([facility])[address] [place] [address] ALP [Catalytic activity/Vol] 90 U/L Normal 34-104 [facility] Comment on above: Performed By: #### L [id number] ####[facility] ([facility])[address] [place] [address] ALT [Catalytic activity/Vol] 15 U/L Normal 7-52 [facility] Comment on above: Performed By: #### L [id number] ####[facility] [place] [address] Anion gap [Moles/Vol] 13 mmol/L Normal 7-20 [facility] Comment on above: Performed By: #### L [id number] ####[facility] LAB (BEAKER)[address] [place] [address] AST [Catalytic activity/Vol] 27 U/L Normal 13-39 [facility] Comment on above: Performed By: #### L [id number] ####[facility] HOSPITAL LAB (BEAKER)[address] [place] [address] Bilirubin [Mass/Vol] 0.7 mg/dL Normal 0.3-1.0 [facility] Comment on above: Performed By: #### L [id number] ####[facility] LAB (BEAKER)[address] [place] [address] Calcium [Mass/Vol] 9.1 mg/dL Normal 8.6-10.3 [facility] Comment on above: Performed By: #### L [id number] ####[facility] LAB (BEAKER)[address] [place] [address] Chloride [Moles/Vol] 108 mmol/L High 98-107 [facility] Comment on above: Performed By: #### L [id number] ####[facility] LAB (BEAKER)[address] [place] [address] CO2 [Moles/Vol] 21 mmol/L Normal 21-31 [facility] Comment on above: Performed By: #### L [id number] ####[facility] LAB (BEAKER)[address] [place] [address] Creatinine [Mass/Vol] 1.63 mg/dL High 0.70-1.30 [facility] [facility] Comment on above: Performed By: #### L [id number] ####[facility] (BEAKER)[address] [place] [address] GLOMERULAR FILTRATION RATE ML/MIN/1.73 SQ M.PREDICTED 44.5 mL/min/1.73m*2 Low >60.0 [facility] Comment on above: Result Comment: The [facility]???s estimated glomerular filtration rate (eGFR) will no [...] group of individuals. Performed By: #### L [id number] ####[facility] ([facility])[address] [place] [address] Glucose [Mass/Vol] 165 mg/dL High 70-100 [facility] Comment on above: Performed By: #### L [id number] ####[facility] ([facility])[address] [place] [address] Potassium [Moles/Vol] 4.7 mmol/L Normal 3.5-5.1 [facility] Comment on above: Performed By: #### L [id number] ####[facility] ([facility])[address] [place] [address] Protein [Mass/Vol] 7.2 g/dL Normal 6.0-8.3 [facility] Comment on above: Performed By: #### L [id number] ####[facility] ([facility])[address] [place] [address] Sodium [Moles/Vol] 137 mmol/L Normal 136-145 [facility] Comment on above: Performed By: #### L [id number] ####[facility] ([facility])[address] [place] [address] Urea nitrogen [Mass/Vol] 26 mg/dL High 7-25 [facility] Comment on above: Performed By: #### L [id number] ####[facility] ([facility])[address] [place] [address] UREA NITROGEN/CREATININE (MASS RATIO) IN SER/PLAS 16.0 Normal [facility] Comment on above: Performed By: #### L [id number] ####[facility] ([facility])[address] [place] [address] CONSULTon 08-13-2024 CONSULT ----- ----- Attestation signed by Tatianna Urrutia MD at 08/13/2024 7:18 PM I personally spoke with and examined Mr. Lizama with Dr. Pagan today. I then spoke with his bakery decorator Dr. Bishop about his longitudinal care. At [...] mildly elevated troponin. Patient was transferred to [facility] for further evaluation and treatment. Patient [...] (1000 unit (more content not included)... Normal [facility] Eosinophils/100 WBC Auto (Bl d)on 08-13-2024 Eosinophils/100 WBC (Bld) Automated eosinophil % 0.9-7.0 [facility] Erythrocyte distribution wid th Auto (RBC) [Ratio]on 08-13-2024 Erythrocyte distribution width (RBC) [Ratio] Erythrocyte distribution width [Ratio] by Automated count 11.0-15.0 [facility] Estimated glomerular filtrat ion rate (GFR) non- Americanon 08-13-2024 GFR/1.73 sq M.predicted among non-blacks MDRD (S/P/Bld) [Vol rate/Area] Estimated glomerular filtration rate (GFR) non- Low >=60 mL/min/1.7 3m 2 [facility] Fibrin D-dimer [Presence] in Platelet poor plasma by Latex agglutinationon 08-13-2024 Fibrin D-dimer LA Ql (PPP) Fibrin D-dimer [Presence] in Platelet poor plasma by Latex agglutination Critically high <=0.59 [facility] Comment on above: RESULTS CALLED TO PAVEL [...] I (NG/L) 294 ng/L Critically high <20 [facility] Comment on above: Performed By: #### L [id number] #### [facility] (BEAKER) [address] [place] [address] Hematocrit Auto (Bld) [Volum e fraction]on 08-13-2024 Hematocrit (Bld) [Volume fraction] Hematocrit [Volume Fraction] of Blood by Automated count Low 42.0-54.0 [facility] Hemoglobin [Mass/volume] in Bloodon 08-13-2024 Hemoglobin (Bld) [Mass/Vol] Hemoglobin [Mass/volume] in Blood Low 14.0-18.0 [facility] Laboratory - Chemistry and C hemistry - challengeon 08-13-2024 Calcium [Mass/Vol] 9.3 mg/dL 8.5-10.1 [facility] Chloride [Moles/Vol] 103 mmol/L 98-107 [facility] CO2 [Moles/Vol] 24.4 mmol/L 21.0-32.0 [facility] Creatinine [Mass/Vol] 2.02 mg/dL High 0.70-1.30 [facility] GFR/1.73 sq M.predicted MDRD (S/P/Bld) [Vol rate/Area] 40 mL/min/{1.73_m2} Low >=60 mL/min/1.7 3m 2 [facility] Glucose [Mass/Vol] 310 mg/dL High 74-106 [facility] Potassium [Moles/Vol] 3.9 mmol/L 3.5-5.1 [facility] Sodium [Moles/Vol] 137 mmol/L 136-145 [facility] Urea nitrogen [Mass/Vol] 29.0 mg/dL High 7.0-18.0 [facility] Urea nitrogen/Creatinine [Mass ratio] 14.4 mg/mg [facility] Laboratory - Hematology and Cell countson 08-13-2024 Immature granulocytes/100 WBC (Bld) 0.5 % 0.0-0.5 [facility] Leukocytes [#/volume] correc soraya for nucleated erythrocytes in Blood by Automated counon 08-13-2024 WBC corrected for nucl RBC Auto (Bld) [#/Vol] Leukocytes [#/volume] corrected for nucleated erythrocytes in Blood by Automated coun 4.0-11.0 [facility] Lymphocytes Auto (Bld) [#/Vo l]on 08-13-2024 Lymphocytes (Bld) [#/Vol] Lymphocytes [#/volume] in Blood by Automated count 1.2-3.8 [facility] Lymphocytes/100 WBC Auto (Bl d)on 08-13-2024 Lymphocytes/100 WBC (Bld) Lymphocytes/100 leukocytes in Blood by Automated count 20.5-60.0 [facility] MAGNESIUMon 08-13-2024 Magnesium [Mass/Vol] 1.9 mg/dL Normal 1.9-2.7 [facility] Comment on above: Performed By: #### L [id number] #### [facility] ([facility]ER) [address] [place] [address] MCH Auto (RBC) [Entitic mass ]on 08-13-2024 MCH (RBC) [Entitic mass] MCH [Entitic mass] by Automated count 25.9-34.0 [facility] MCHC Auto (RBC) [Mass/Vol]on 08-13-2024 MCHC (RBC) [Mass/Vol] MCHC [Mass/volume] by Automated count 29.9-35.2 [facility] MCV Auto (RBC) [Entitic vol] on 08-13-2024 MCV (RBC) [Entitic vol] MCV [Entitic volume] by Automated count 80.0-94.0 [facility] Monocytes Auto (Bld) [#/Vol] on 08-13-2024 Monocytes (Bld) [#/Vol] Automated blood monocyte count High 0.3-0.8 [facility] Monocytes/100 WBC Auto (Bld) on 08-13-2024 Monocytes/100 WBC (Bld) Automated monocyte % 1.7-12.0 [facility] Neutrophils Auto (Bld) [#/Vo l]on 08-13-2024 Neutrophils (Bld) [#/Vol] Neutrophils [#/volume] in Blood by Automated count 1.4-6.5 [facility] Neutrophils/100 WBC Auto (Bl d)on 08-13-2024 Neutrophils/100 WBC (Bld) Automated neutrophil % 43.0-75.0 [facility] No Panel Informationon 08-13 Troponin I High Sensitivity 228.4 pg/mL Critically high 4.0-76.1 [facility] Comment on above: RESULTS CALLED TO YNES [...] Eosinophils # (Auto) 0.2 10 3/uL 0.0-0.7 [facility] Immature Granulocyte # (Auto) 0.04 10 3/uL High 0.00-0.03 [facility] PHOSPHORUSon 08-13-2024 Magnesium [Mass/Vol] 3.6 mg/dL Normal 2.5-5.0 [facility] Comment on above: Performed By: #### L [id number] ####[facility] ([facility]AKER)[address] [place] [address] POCT GLUCOSE METER UNSOLICIT ED RESULTSon 08-13-2024 Glucose [Mass/Vol] 104 mg/dL Normal 70-105 [facility] Comment on above: Order Comment: Waive d Testing in the ED is performed under the ED CLIA certificate #[id number]. Result Comment: [email or web address] Performed By: #### L [id number] ####[facility] (BEAKER)[address] [place] [address] Glucose [Mass/Vol] 207 mg/dL High 70-105 [facility] Comment on above: Order Comment: Waive d Testing in the ED is performed under the ED CLIA certificate #[id number]. Result Comment: [email or web address] Performed By: #### L [id number] ####[facility] (BEAKER)[address] [place] [address] Glucose [Mass/Vol] 160 mg/dL High 70-105 [facility] Comment on above: Order Comment: Waive d Testing in the ED is performed under the ED CLIA certificate #[id number]. Result Comment: [email or web address] gol Performed By: #### L [id number] ####[facility] (BEAKER)[address] [place] [address] Platelet mean volume Auto (B ld) [Entitic vol]on 08-13-2024 Platelet mean volume (Bld) [Entitic vol] Platelet mean volume [Entitic volume] in Blood by Automated count 9.5-13.5 [facility] Platelets Auto (Bld) [#/Vol] on 08-13-2024 Platelets (Bld) [#/Vol] Platelets [#/volume] in Blood by Automated count 150-450 [facility] RBC Auto (Bld) [#/Vol]on RBC (Bld) [#/Vol] Erythrocytes [#/volu me] in Blood by Automated count Low 4.70-6.10 [facility] Serum or plasma anion gap de terminationon 08-13-2024 Anion gap [Moles/Vol] Serum or plasma an ion gap determination [facility] Main OR Preoperative Recordo n 08-11-2024 Main OR Preoperative Record Main OR Preoperative Record Holding Area Document Type FTURO Summary Primary Physician: Jason LARKIN MD Finalized Date/Time: 08/11/24 16:19:02 Pt. Name: LANI LIZAMA/Sex: 1950 Male Med Rec #: [id number] Physician: Jason LARKIN MD Financial #: [id number] Pt. Type: O Room/Bed: / Admit/Disch: 08/04/24 [...] Outcomes Met? Yes Last Modified By: Rose Renya RN Pham May 08/04/24 09:24:04 Post-Care Text: [...] RN, Ruthann 08/11/24 16:19 Normal [facility] Urine Cytology ([facility])on 08-07-2024 Microscopic exam Cytology (U) [Interp] Diagnosis Info Invalid Interpretation Code [facility] Comment on above: Result Comment: A:Ur ine,Urine:Voided Interpretation - Adequate cellularity for evaluation. CPT 10212 MicroScopic Description - Adequacy - Gross Description Site ID:A color Red fixative Alcohol Specimen designated Urine received in alcohol preservative and labeled with the patient???s name, consists of 60ml cloudy red fluid. Electronically signed by : on: 08/07/2024 13:02:18 Performed By: #### 1 [id number] #### [facility] [address] [place] [address] Main OR Intraoperative Recor don 08-04-2024 Main OR Intraoperative Record Main OR Intraoperative Record IntraOp Document Type FTURO Summary Primary Physician: Jason LARKIN MD Finalized Date/Time: 08/04/24 10:03:52 Pt. Name: LANI LIZAMA Nakul العراقي/Sex: 1950 Male Med Rec #: [id number] Physician: Jason LARKIN MD Financial #: [id number] Pt. Type: O Room/Bed: / Admit/Disch: 08/04/24 [...] Hortencia Holt Role Performed Surgeon - Primary Mandarin Tutor - Primary Scrub - Primary Time In 08/04/24 09:45:00 08/04/24 09:45:00 08/04/24 09:45:00 Time Out 08/04/24 10:10:00 08/04/24 10:10:00 08/04/24 10:10:00 Procedure CYSTOSCOPY LOCAL(.) CYSTOSCOPY LOCAL(.) CYSTOSCOPY LOCAL(.) Comments Last Modified By: Tanja POSADA, CNOR, Tanja RN, DEEPALIOR, Tanja POSADA, DEEPALIOR, [...] RN, Ruthann 08/04/24 10:03 Normal [facility] Operative Reporton Operative Report Operative Report Patient: [...] at a tertiary center.. Normal [facility] Comment on above: Result Comment: Elec tronically Signed By: Jason LARKIN MD\.br\Date and Time Signed: 08/04/24 10:12 EDT HbA1c HPLC (Bld) [Mass fract ion]on 08-03-2024 HbA1c (Bld) [Mass fraction] Hemoglobin A1c/Hemoglobin.total in Blood by HPLC [facility] No Panel Informationon 08-03 Bedside Glucose 147 [facility] Urine Cytology ([facility])on 0 08-03-2024 Method of Extraction Voided Normal [facility] Comment on above: Performed By: #### 1 [id number] #### [facility] [address] [place] [address] Number of Jars 1 Invalid Interpretation Code [facility] Comment on above: Performed By: #### 1 [id number] #### [facility] [address] [place] [address] Specimen Urine Normal [facility] Comment on above: Performed By: #### 1 [id number] #### [facility] [address] [place] [address] Type of Service Technical Only Normal [facility] Comment on above: Performed By: #### 1 [id number] #### [facility] [address] [place] [address] Urology Office/Clinic Noteon 08-03-2024 Urology Office/Clinic Note [...] factor for urothelial ca. 5. 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 Hx of CABG x5 1995 at [facility], PCI/stent x8 at [facility]. Elevated risk for periop complications. Follow-up With When Contact Information Jason LARKIN MD, [facility] [address], [place] [address] [phone] Additional Instructions: sched cysto Patient Education Cystoscopy I, Tiffany Patten, personally scribed for Dr. Larkin on 08/03/2024 14:23:23. . Documentation recorded by the scribe, Tiffany Patten, accurately reflects the services(s) I performed and decisions made by me. Authenticated by Dr. Larkin on 08/03/2024 14:25:00. Problem List/Past Medical History Ongoing Abdominal pain, RLQ Anticoagulated Arthritis ASHD (arteriosclerotic heart disease) Atheroscler of [place] artery of both legs with intermit claudication [...] (more content not included)... Normal [facility] Comment on above: Result Comment: Elec tronically Signed By: Jason LARKIN MD\.br\Date and Time Signed: 08/03/24 14:25 EDT\.br\Electronically Co-Signed By: Tiffany Patten\.br\Date and Time Co-Signed: 08/03/24 14:24 EDT Basophils Auto (Bld) [#/Vol] on 07-15-2024 Basophils (Bld) [#/Vol] Automated basophil count 0.0-0.1 [facility] Basophils/100 WBC Auto (Bld) on 07-15-2024 Basophils/100 WBC (Bld) Automated basophil % 0.2-2.0 [facility] Eosinophils/100 WBC Auto (Bl d)on 07-15-2024 Eosinophils/100 WBC (Bld) Automated eosinophil % 0.9-7.0 [facility] Erythrocyte distribution wid th Auto (RBC) [Ratio]on 07-15-2024 Erythrocyte distribution width (RBC) [Ratio] Erythrocyte distribution width [Ratio] by Automated count 11.0-15.0 [facility] Estimated glomerular filtrat ion rate (GFR) non- Americanon 07-15-2024 GFR/1.73 sq M.predicted among non-blacks MDRD (S/P/Bld) [Vol rate/Area] Estimated glomerular filtration rate (GFR) non- Low >=60 mL/min/1.7 3m 2 [facility] Globulin Calc (S) [Mass/Vol] on 07-15-2024 Globulin (S) [Mass/Vol] Serum globulin measurement by calculation (mass/volume) [facility] Hematocrit Auto (Bld) [Volum e fraction]on 07-15-2024 Hematocrit (Bld) [Volume fraction] Hematocrit [Volume Fraction] of Blood by Automated count 42.0-54.0 [facility] Hemoglobin [Mass/volume] in Bloodon 07-15-2024 Hemoglobin (Bld) [Mass/Vol] Hemoglobin [Mass/volume] in Blood 14.0-18.0 [facility] Laboratory - Chemistry and C hemistry - challengeon 07-15-2024 Albumin [Mass/Vol] 3.8 g/dL 3.4-5.0 [facility] ALP [Catalytic activity/Vol] 128 U/L High 46-116 [facility] ALT [Catalytic activity/Vol] 30 U/L 16-63 [facility] AST [Catalytic activity/Vol] 22 U/L 15-37 [facility] Bilirubin [Mass/Vol] 0.6 mg/dL 0.2-1.0 [facility] Calcium [Mass/Vol] 8.9 mg/dL 8.5-10.1 [facility] Chloride [Moles/Vol] 104 mmol/L 98-107 [facility] CO2 [Moles/Vol] 28.1 mmol/L 21.0-32.0 [facility] Creatinine [Mass/Vol] 1.74 mg/dL High 0.70-1.30 [facility] GFR/1.73 sq M.predicted MDRD (S/P/Bld) [Vol rate/Area] 47 mL/min/{1.73_m2} Low >=60 mL/min/1.7 3m 2 [facility] Glucose [Mass/Vol] 142 mg/dL High 74-106 [facility] Potassium [Moles/Vol] 4.1 mmol/L 3.5-5.1 [facility] Protein [Mass/Vol] 7.5 g/dL 6.4-8.2 [facility] Sodium [Moles/Vol] 140 mmol/L 136-145 [facility] Urea nitrogen [Mass/Vol] 19.0 mg/dL High 7.0-18.0 [facility] Urea nitrogen/Creatinine [Mass ratio] 10.9 mg/mg [facility] Laboratory - Hematology and Cell countson 07-15-2024 Immature granulocytes/100 WBC (Bld) 0.6 % High 0.0-0.5 [facility] Leukocytes [#/volume] correc soraya for nucleated erythrocytes in Blood by Automated counon 07-15-2024 WBC corrected for nucl RBC Auto (Bld) [#/Vol] Leukocytes [#/volume] corrected for nucleated erythrocytes in Blood by Automated coun 4.0-11.0 [facility] Lymphocytes Auto (Bld) [#/Vo l]on 07-15-2024 Lymphocytes (Bld) [#/Vol] Lymphocytes [#/volume] in Blood by Automated count 1.2-3.8 [facility] Lymphocytes/100 WBC Auto (Bl d)on 07-15-2024 Lymphocytes/100 WBC (Bld) Lymphocytes/100 leukocytes in Blood by Automated count 20.5-60.0 [facility] MCH Auto (RBC) [Entitic mass ]on 07-15-2024 MCH (RBC) [Entitic mass] MCH [Entitic mass] by Automated count 25.9-34.0 [facility] MCHC Auto (RBC) [Mass/Vol]on 07-15-2024 MCHC (RBC) [Mass/Vol] MCHC [Mass/volume] by Automated count 29.9-35.2 [facility] MCV Auto (RBC) [Entitic vol] on 07-15-2024 MCV (RBC) [Entitic vol] MCV [Entitic volume] by Automated count 80.0-94.0 [facility] Monocytes Auto (Bld) [#/Vol] on 07-15-2024 Monocytes (Bld) [#/Vol] Automated blood monocyte count 0.3-0.8 [facility] Monocytes/100 WBC Auto (Bld) on 07-15-2024 Monocytes/100 WBC (Bld) Automated monocyte % 1.7-12.0 [facility] Neutrophils Auto (Bld) [#/Vo l]on 07-15-2024 Neutrophils (Bld) [#/Vol] Neutrophils [#/volume] in Blood by Automated count 1.4-6.5 [facility] Neutrophils/100 WBC Auto (Bl d)on 07-15-2024 Neutrophils/100 WBC (Bld) Automated neutrophil % 43.0-75.0 [facility] No Panel Informationon 07-15 Eosinophils # (Auto) 0.3 10 3/uL 0.0-0.7 [facility] Immature Granulocyte # (Auto) 0.05 10 3/uL High 0.00-0.03 [facility] Platelet mean volume Auto (B ld) [Entitic vol]on 07-15-2024 Platelet mean volume (Bld) [Entitic vol] Platelet mean volume [Entitic volume] in Blood by Automated count 9.5-13.5 [facility] Platelets Auto (Bld) [#/Vol] on 07-15-2024 Platelets (Bld) [#/Vol] Platelets [#/volume] in Blood by Automated count 150-450 [facility] RBC Auto (Bld) [#/Vol]on RBC (Bld) [#/Vol] Erythrocytes [#/volu me] in Blood by Automated count 4.70-6.10 [facility] Serum or plasma albumin/glob ulin mass ratioon 07-15-2024 Albumin/Globulin [Mass ratio] Serum or plasma albumin/globulin mass ratio [facility] Serum or plasma anion gap de terminationon 07-15-2024 Anion gap [Moles/Vol] Serum or plasma an ion gap determination [facility] Erythrocyte distribution wid th Auto (RBC) [Ratio]on 07-07-2024 Erythrocyte distribution width (RBC) [Ratio] Erythrocyte distribution width [Ratio] by Automated count High 11.0-15.0 [facility] Estimated glomerular filtrat ion rate (GFR) non- Americanon 07-07-2024 GFR/1.73 sq M.predicted among non-blacks MDRD (S/P/Bld) [Vol rate/Area] Estimated glomerular filtration rate (GFR) non- Low >=60 mL/min/1.7 3m 2 [facility] Hematocrit Auto (Bld) [Volum e fraction]on 07-07-2024 Hematocrit (Bld) [Volume fraction] Hematocrit [Volume Fraction] of Blood by Automated count 42.0-54.0 [facility] Hemoglobin [Mass/volume] in Bloodon 07-07-2024 Hemoglobin (Bld) [Mass/Vol] Hemoglobin [Mass/volume] in Blood 14.0-18.0 [facility] Laboratory - Chemistry and C hemistry - challengeon 07-07-2024 Albumin [Mass/Vol] 3.9 g/dL 3.4-5.0 [facility] Calcium [Mass/Vol] 9.3 mg/dL 8.5-10.1 [facility] Chloride [Moles/Vol] 105 mmol/L 98-107 [facility] CO2 [Moles/Vol] 28.7 mmol/L 21.0-32.0 [facility] Creatinine [Mass/Vol] 1.87 mg/dL High 0.70-1.30 [facility] GFR/1.73 sq M.predicted MDRD (S/P/Bld) [Vol rate/Area] 43 mL/min/{1.73_m2} Low >=60 mL/min/1.7 3m 2 [facility] Glucose [Mass/Vol] 196 mg/dL High 74-106 [facility] Magnesium [Mass/Vol] 1.9 mg/dL 1.8-2.4 [facility] Potassium [Moles/Vol] 5.5 mmol/L High 3.5-5.1 [facility] Sodium [Moles/Vol] 139 mmol/L 136-145 [facility] Urate [Mass/Vol] 3.5 mg/dL 3.5-7.2 [facility] Urea nitrogen [Mass/Vol] 19.0 mg/dL High 7.0-18.0 [facility] Urea nitrogen/Creatinine [Mass ratio] 10.2 mg/mg [facility] Laboratory - Urinalysison Protein (U) [Mass/Vol] 124.0 mg/dL High <=11.9 [facility] Leukocytes [#/volume] correc soraya for nucleated erythrocytes in Blood by Automated counon 07-07-2024 WBC corrected for nucl RBC Auto (Bld) [#/Vol] Leukocytes [#/volume] corrected for nucleated erythrocytes in Blood by Automated coun 4.0-11.0 [facility] MCH Auto (RBC) [Entitic mass ]on 07-07-2024 MCH (RBC) [Entitic mass] MCH [Entitic mass] by Automated count 25.9-34.0 [facility] MCHC Auto (RBC) [Mass/Vol]on 07-07-2024 MCHC (RBC) [Mass/Vol] MCHC [Mass/volume] by Automated count 29.9-35.2 [facility] MCV Auto (RBC) [Entitic vol] on 07-07-2024 MCV (RBC) [Entitic vol] MCV [Entitic volume] by Automated count 80.0-94.0 [facility] No Panel Informationon 07-07 25-Hydroxy Vitamin D Total 41.5 ng/mL [facility] Comment on above: <20 ng/mL Vit D defi cient20-<30 ng/mL Vit D [id number] ng/mL Vit D sufficient>100 ng/mL Potential Toxicity Parathyroid Hormone (Intact) 62 pg/mL 15-65 [facility] Comment on above: Performed at: [address] [id number] Director: [place] PhD, Phone: [phone] Phosphorus Level 3.7 mg/dL 2.6-4.7 [facility] Urine Random Creatinine 69.77 mg/dL 20.00-300. 00 [facility] Platelet mean volume Auto (B ld) [Entitic vol]on 07-07-2024 Platelet mean volume (Bld) [Entitic vol] Platelet mean volume [Entitic volume] in Blood by Automated count 9.5-13.5 [facility] Platelets Auto (Bld) [#/Vol] on 07-07-2024 Platelets (Bld) [#/Vol] Platelets [#/volume] in Blood by Automated count 150-450 [facility] RBC Auto (Bld) [#/Vol]on RBC (Bld) [#/Vol] Erythrocytes [#/volu me] in Blood by Automated count 4.70-6.10 [facility] Serum or plasma anion gap de terminationon 07-07-2024 Anion gap [Moles/Vol] Serum or plasma an ion gap determination [facility] Urine Cultureon 07-07-2024 Bacteria identified Cx Nom (U) <9,000 colonies/ml mixed bacterial skin contaminants 2 Days PERFORMED BY: [place] [address] PATHOLOGIST MEDIA RELATIONS DIRECTOR DORCAS FARRELL M.D. Normal [facility] Comment on above: Performed By: #### C UU #### [address] Urine protein/creatinine rat ioon 07-07-2024 Protein/Creatinine (U) [Ratio] Urine protein/creatinine ratio [facility] Laboratory - Microbiology an d Antimicrobial susceptibilityon 06-10-2024 SARS-CoV-2 (COVID-19) RNA RAMO+probe Ql (Unsp spec) Positive Abnormal NEGATIVE [facility] Comment on above: This test has not [...] 06-10 Bedside Influenza Type A Antigen Negative [facility] Comment on above: Negative for Flu A p rotein antigen. Infection due to Flu Acannot be ruled out. Flu A antigen in the sample may bebelow the detection limit of the test. Bedside Influenza Type B Antigen Negative [facility] Comment on above: Negative for Flu B p rotein antigen. Infection due to Flu Bcannot be ruled out. Flu B antigen in the sample may bebelow the detection limit of the test. Cholesterol in LDL Calc [Mas s/Vol]on 05-05-2024 Cholesterol in LDL [Mass/Vol] Cholesterol in LDL [Mass/volume] in Serum or Plasma by calculation [facility] Comment on above: <100 mg/dl [id number] 0-129 mg/dl NEAR OR ABOVE [id number] mg/dl BORDERLINE [id number] mg/dl HIGH>190 mg/dl VERY HIGH Cholesterol in VLDL Calc [Ma ss/Vol]on 05-05-2024 Cholesterol in VLDL [Mass/Vol] Cholesterol in VLDL [Mass/volume] in Serum or Plasma by calculation [facility] Estimated glomerular filtrat ion rate (GFR) non- Americanon 05-05-2024 GFR/1.73 sq M.predicted among non-blacks MDRD (S/P/Bld) [Vol rate/Area] Estimated glomerular filtration rate (GFR) non- Low >=60 mL/min/1.7 3m 2 [facility] Globulin Calc (S) [Mass/Vol] on 05-05-2024 Globulin (S) [Mass/Vol] Serum globulin measurement by calculation (mass/volume) [facility] Laboratory - Chemistry and C hemistry - challengeon 05-05-2024 Albumin [Mass/Vol] 3.7 g/dL 3.4-5.0 [facility] ALP [Catalytic activity/Vol] 162 U/L High 46-116 [facility] ALT [Catalytic activity/Vol] 17 U/L 16-63 [facility] AST [Catalytic activity/Vol] 20 U/L 15-37 [facility] Bilirubin [Mass/Vol] 0.5 mg/dL 0.2-1.0 [facility] Calcium [Mass/Vol] 9.2 mg/dL 8.5-10.1 [facility] Chloride [Moles/Vol] 104 mmol/L 98-107 [facility] Cholesterol [Mass/Vol] 117 mg/dL <=200 [facility] Cholesterol in HDL [Mass/Vol] 39 mg/dL Low 40-60 [facility] Comment on above: > or =60 mg/dl - LOW CARDIOVASCULAR RISK<40 mg/dl - HIGH CARDIOVASCULAR RISK CO2 [Moles/Vol] 28.5 mmol/L 21.0-32.0 [facility] Creatinine [Mass/Vol] 2.15 mg/dL High 0.70-1.30 [facility] GFR/1.73 sq M.predicted MDRD (S/P/Bld) [Vol rate/Area] 37 mL/min/{1.73_m2} Low >=60 mL/min/1.7 3m 2 [facility] Glucose [Mass/Vol] 220 mg/dL High 74-106 [facility] Potassium [Moles/Vol] 4.6 mmol/L 3.5-5.1 [facility] Protein [Mass/Vol] 8.0 g/dL 6.4-8.2 [facility] Sodium [Moles/Vol] 141 mmol/L 136-145 [facility] Triglyceride [Mass/Vol] 171 mg/dL High <=150 [facility] Urea nitrogen [Mass/Vol] 27.0 mg/dL High 7.0-18.0 [facility] Urea nitrogen/Creatinine [Mass ratio] 12.6 mg/mg [facility] Microalbumin [Mass/volume] i n Urineon 05-05-2024 Albumin DL <= 20 mg/L (U) [Mass/Vol] Microalbumin [Mass/volume] in Urine <=30.0 [facility] No Panel Informationon 05-05 Urine Random Creatinine 61.15 mg/dL 20.00-300. 00 [facility] Serum or plasma albumin/glob ulin mass ratioon 05-05-2024 Albumin/Globulin [Mass ratio] Serum or plasma albumin/globulin mass ratio [facility] Serum or plasma anion gap de terminationon 05-05-2024 Anion gap [Moles/Vol] Serum or plasma an ion gap determination [facility] Serum or plasma total choles terol/high density lipoprotein (HDL) cholesterol mass yulia 05-05-2024 Cholesterol.total/Chol esterol in HDL [Mass ratio] Serum or plasma total cholesterol/high density lipoprotein (HDL) cholesterol mass rat [facility] Comment on above: 3.3 - 4.4 LOW RISK4. 4 - 7.1 AVERAGE RISK7.1 - 11.0 MODERATE RISK>11.0 HIGH RISK Urine microalbumin/creatinin e mass ratioon 05-05-2024 Albumin/Creatinine DL <= 20 mg/L (U) [Mass ratio] Urine microalbumin/creatinine mass ratio High 0.0-29.9 [facility] Comment on above: NO MICROALBUMINURIA 0-29 MG/GCLINICAL MICROALBUMINURIA 30-300 MG/GMACROALBUMINURIA >300 MG/G HbA1c HPLC (Bld) [Mass fract ion]on 04-30-2024 HbA1c (Bld) [Mass fraction] Hemoglobin A1c/Hemoglobin.total in Blood by HPLC [facility] No Panel Informationon 04-30 Bedside Glucose 158 [facility] Office Visiton 03-10-2024 Follow-up visit [id number] Lani Lizama 1950 M Date Provider Department Center 03/10/2024 Belle-KEVIN ARTEAGA [facility]ARCEL[facility] Family History Problem Relation Age of Onset Heart attack Mother Other Father Other Brother Heart attack Maternal Grandmother Heart attack Maternal Grandfather Family Status - Relation Status Age at Mother Father Brother Maternal Grandmother Maternal Grandfather Level of Service:56841 SD OFFICE/OUTPATIENT NEW LOW MDM 30 MINUTES Normal [facility] 30on 02-14-2024 30 The patient is Moder ately Stable - Low risk of patient condition declining or worsening The patient's goals for the shift include get better The clinical goals for the shift include VSS Normal [facility] 30 The patient is Moder ately Stable [...] and behaviors that affect risk of falls Herculaneum fall precautions as indicated by assessment Educate [...] and prevent overall improvement and discharge Normal [facility] BASIC METABOLIC PANELon 11- Anion gap [Moles/Vol] 9 mmol/L Normal 7-20 [facility] Comment on above: Performed By: #### L [id number] ####[facility] ([facility] [place] [address] Calcium [Mass/Vol] 8.4 mg/dL Low 8.6-10.3 [facility] Comment on above: Performed By: #### L [id number] ####[facility] ([facility] [place] [address] Chloride [Moles/Vol] 109 mmol/L High 98-107 [facility] Comment on above: Performed By: #### L [id number] ####[facility] ([facility] [place] [address] CO2 [Moles/Vol] 25 mmol/L Normal 21-31 [facility] Comment on above: Performed By: #### L [id number] ####[facility] ([facility] [place] [address] Creatinine [Mass/Vol] 1.65 mg/dL High 0.70-1.30 [facility] Comment on above: Performed By: #### L [id number] ####[facility] ([facility])[address] [place] [address] GLOMERULAR FILTRATION RATE ML/MIN/1.73 SQ M.PREDICTED 43.8 mL/min/1.73m*2 Low >60.0 [facility] Comment on above: Result Comment: The [facility]???s estimated glomerular filtration rate (eGFR) will no [...] of individuals. Performed By: #### L [id number] ####[facility] ([facility])[address] [place] [address] Glucose [Mass/Vol] 118 mg/dL High 70-100 [facility] Comment on above: Performed By: #### L [id number] ####[facility] ([facility])[address] [place] [address] Potassium [Moles/Vol] 4.3 mmol/L Normal 3.5-5.1 [facility] Comment on above: Performed By: #### L [id number] ####[facility] ([facility])[address] [place] [address] Sodium [Moles/Vol] 139 mmol/L Normal 136-145 [facility] Comment on above: Performed By: #### L [id number] ####[facility] ([facility] [place] [address] Urea nitrogen [Mass/Vol] 19 mg/dL Normal 7-25 [facility] Comment on above: Performed By: #### L [id number] ####[facility] [place] [address] UREA NITROGEN/CREATININE (MASS RATIO) IN SER/PLAS 11.5 Normal [facility] Comment on above: Performed By: #### L [id number] ####[facility] ([facility])[address] [place] [address] CBCon 02-14-2024 Erythrocyte distribution width (RBC) [Ratio] 13.8 % Normal 11.5-15.0 [facility] Comment on above: Performed By: #### L [id number] #### [facility] ([facility] [address] [place] [address] ERYTHROCYTE MEAN CORPUSCULAR HEMOGLOBIN CONCENTRATION (G/DL) BY AUTOMATED 32.9 g/dL Normal 32.0-35.0 [facility] Comment on above: Performed By: #### L [id number] #### [facility] ([facility] [address] [place] [address] Hematocrit (Bld) [Volume fraction] 38.0 % Low 39.0-55.0 [facility] Comment on above: Performed By: #### L [id number] #### [facility] ([facility]) [address] [place] [address] Hemoglobin (Bld) [Mass/Vol] 12.5 g/dL Low 13.0-17.0 [facility] Comment on above: Performed By: #### L [id number] #### [facility] ([facility]) [address] [place] [address] MCH (RBC) [Entitic mass] 30.1 pg Normal 27.0-33.0 [facility] Comment on above: Performed By: #### L [id number] #### [facility] ([facility]) [address] [place] [address] MCV (RBC) [Entitic vol] 91.6 fL Normal 82.0-98.0 [facility] Comment on above: Performed By: #### L [id number] #### [facility] ([facility]) [address] [place] [address] PLATELETS (10*3/UL) IN BLOOD AUTOMATED COUNT 176 10*3/uL Normal 150-400 [facility] Comment on above: Performed By: #### L [id number] #### [facility] ([facility]) [address] [place] [address] RBC (Bld) [#/Vol] 4.15 10*6/uL Low 4.20-5.70 [facility] Comment on above: Performed By: #### L [id number] #### [facility] ([facility]) [address] [place] [address] WBC (Bld) [#/Vol] 6.88 10*3/uL Normal 4.00-10.60 [facility] Comment on above: Performed By: #### L [id number] #### [facility] [address] [place] [address] NURSNOTEon 02-14-2024 NURSNOTE Discharge instructio n given , patient verbalized understanding, no follow up questions asked Normal [facility] POCT GLUCOSE METER UNSOLICIT ED RESULTSon 02-14-2024 Glucose [Mass/Vol] 231 mg/dL High 70-105 [facility] Comment on above: Order Comment: Waive d Testing in the ED is performed under the ED CLIA certificate #[id number]. Result Comment: [email or web address] Performed By: #### L [id number] ####[facility] ([facility])[address] [place] [address] Glucose [Mass/Vol] 128 mg/dL High 70-105 [facility] Comment on above: Order Comment: Waive d Testing in the ED is performed under the ED CLIA certificate #[id number]. Result Comment: [email or web address] Performed By: #### L [id number] ####[facility] ([facility])[address] [place] [address] TROPONIN Ion 02-14-2024 Troponin I.cardiac [Mass/Vol] 1.08 ng/mL Critically high 0.00-0.04 [facility] Comment on above: Result Comment: M-SD EVIOUS CRITICAL RESULT Previous result verified on 02/14/2024 0605 on specimen/case [id number] called with component Troponin I for procedure Troponin I with value 1.69 ng/mL. Performed By: #### L [id number] #### [facility] ([facility]) [address] [place] [address] Troponin I.cardiac [Mass/Vol] 1.69 ng/mL Critically high 0.00-0.04 [facility] Comment on above: Performed By: #### L [id number] ####[facility] ([facility])[address] [place] [address] 30on 02-13-2024 30 The patient is Moder ately Stable - Low risk of patient condition declining or worsening The patient's goals for the shift include get better The clinical goals for the shift include VSS Normal [facility] 30 The patient is Moder ately Stable [...] and behaviors that affect risk of falls Herculaneum fall precautions as indicated by assessment Educate [...] and behaviors that affect risk of falls Herculaneum fall precautions as indicated by assessment Educate [...] and prevent overall improvement and discharge Normal [facility] ANTI-XA (HEPARIN LEVEL)on HEPARIN UNFRACTIONATED (U/ML) IN PPP BY CHROMOGENIC METHOD 0.85 IU/mL High 0.3-0.7 [facility] Comment on above: Order Comment: Check anti-Xa level every 6 hours while on heparin infusion, or per protocol. Result Comment: [place] roxaban and Apixaban will interfere with the anti Xa assay used to monitor UFH and LMWH. Performed By: #### L [id number] #### [facility] ([facility]) [address] [place] [address] APTTon 02-13-2024 ACTIVATED PARTIAL THROMBOPLASTIN TIME IN PPP BY COAGULATION ASSAY 93.5 Seconds High 25.0-35.0 [facility] Comment on above: Order Comment: Basel ine aPTT before initiating heparin infusion. Result Comment: Clin ical significance of the APTT is questionable in the presence of heparin. Performed By: #### L [id number] #### [facility] ([facility]) [address] [place] [address] B-TYPE NATRIURETIC PEPTIDEon 02-13-2024 Natriuretic peptide B (Bld) [Mass/Vol] 693 pg/mL High 0-100 [facility] Comment on above: Performed By: #### L [id number] #### [facility] ([facility]) [address] [place] [address] BASIC METABOLIC PANELon 01-30 Anion gap [Moles/Vol] 10 mmol/L Normal 7-20 [facility] Comment on above: Performed By: #### L [id number] #### [facility] ([facility]) [address] [place] [address] Calcium [Mass/Vol] 8.9 mg/dL Normal 8.6-10.3 [facility] Comment on above: Performed By: #### L [id number] #### [facility] ([facility]) [address] [place] [address] Chloride [Moles/Vol] 107 mmol/L Normal 98-107 [facility] Comment on above: Performed By: #### L [id number] #### [facility] ([facility]) [address] [place] [address] CO2 [Moles/Vol] 25 mmol/L Normal 21-31 [facility] Comment on above: Performed By: #### L [id number] #### [facility] ([facility]) [address] [place] [address] Creatinine [Mass/Vol] 1.61 mg/dL High 0.70-1.30 [facility] Comment on above: Performed By: #### L [id number] #### [facility] ([facility]) [address] [place] [address] GLOMERULAR FILTRATION RATE ML/MIN/1.73 SQ M.PREDICTED 45.2 mL/min/1.73m*2 Low >60.0 [facility] Comment on above: Result Comment: The [facility]???s estimated glomerular filtration rate (eGFR) will no [...] individuals. Performed By: #### L [id number] #### [facility] ([facility]) [address] [place] [address] Glucose [Mass/Vol] 174 mg/dL High 70-100 [facility] Comment on above: Performed By: #### L [id number] #### [facility] ([facility]) [address] [place] [address] Potassium [Moles/Vol] 4.3 mmol/L Normal 3.5-5.1 [facility] Comment on above: Performed By: #### L [id number] #### [facility] ([facility]) [address] [place] [address] Sodium [Moles/Vol] 138 mmol/L Normal 136-145 [facility] Comment on above: Performed By: #### L [id number] #### [facility] ([facility]) [address] [place] [address] Urea nitrogen [Mass/Vol] 20 mg/dL Normal 7-25 [facility] Comment on above: Performed By: #### L [id number] #### [facility] ([facility]) [address] [place] [address] UREA NITROGEN/CREATININE (MASS RATIO) IN SER/PLAS 12.4 Normal [facility] Comment on above: Performed By: #### L [id number] #### [facility] ([facility]) [address] [place] [address] CBC WITH AUTO DIFFERENTIALon 02-13-2024 Basophils (Bld) [#/Vol] 0.05 10*3/uL Normal 0.00-0.20 [facility] Comment on above: Performed By: #### L [id number] ####[facility] ([facility])[address] [place] [address] Basophils/100 WBC (Bld) 0.7 % Normal 0.0-1.0 [facility] Comment on above: Performed By: #### L [id number] ####[facility] ([facility])[address] [place] [address] Eosinophils (Bld) [#/Vol] 0.13 10*3/uL Normal 0.00-0.50 [facility] Comment on above: Performed By: #### L [id number] ####[facility] ([facility])[address] [place] [address] Eosinophils/100 WBC (Bld) 1.8 % Normal 0.0-6.0 [facility] Comment on above: Performed By: #### L [id number] ####[facility] [place] [address] Erythrocyte distribution width (RBC) [Ratio] 13.4 % Normal 11.5-15.0 [facility] Comment on above: Performed By: #### L [id number] ####[facility] ([facility])[address] [place] [address] ERYTHROCYTE MEAN CORPUSCULAR HEMOGLOBIN CONCENTRATION (G/DL) BY AUTOMATED 34.1 g/dL Normal 32.0-35.0 [facility] Comment on above: Performed By: #### L [id number] ####[facility] ([facility])[address] [place] [address] Hematocrit (Bld) [Volume fraction] 40.2 % Normal 39.0-55.0 [facility] Comment on above: Performed By: #### L [id number] ####[facility] ([facility])[address] [place] [address] Hemoglobin (Bld) [Mass/Vol] 13.7 g/dL Normal 13.0-17.0 [facility] Comment on above: Performed By: #### L [id number] ####[facility] ([facility])[address] [place] [address] Immature granulocytes (Bld) [#/Vol] 0.03 10*3/uL Normal 0.00-0.20 [facility] Comment on above: Performed By: #### L [id number] ####[facility] ([facility])[address] [place] [address] Immature granulocytes/100 WBC (Bld) 0.4 % Normal 0.0-1.0 [facility] Comment on above: Performed By: #### L [id number] ####[facility] ([facility])[address] [place] [address] Lymphocytes (Bld) [#/Vol] 1.64 10*3/uL Normal 1.20-4.00 [facility] Comment on above: Performed By: #### L [id number] ####[facility] ([facility] [place] [address] Lymphocytes/100 WBC (Bld) 22.3 % Normal 20.0-45.0 [facility] Comment on above: Performed By: #### L [id number] ####[facility] [place] [address] MCH (RBC) [Entitic mass] 30.2 pg Normal 27.0-33.0 [facility] Comment on above: Performed By: #### L [id number] ####[facility] ([facility])[address] [place] [address] MCV (RBC) [Entitic vol] 88.5 fL Normal 82.0-98.0 [facility] Comment on above: Performed By: #### L [id number] ####[facility] ([facility])[address] [place] [address] Monocytes (Bld) [#/Vol] 0.69 10*3/uL Normal 0.10-1.00 [facility] Comment on above: Performed By: #### L [id number] ####[facility] [place] [address] Monocytes/100 WBC (Bld) 9.4 % Normal 5.0-12.0 [facility] Comment on above: Performed By: #### L [id number] ####[facility] ([facility])[address] [place] [address] Neutrophils (Bld) [#/Vol] 4.80 10*3/uL Normal 1.60-7.60 [facility] Comment on above: Performed By: #### L [id number] ####[facility] ([facility])[address] [place] [address] Neutrophils/100 WBC (Bld) 65.4 % Normal 40.0-72.0 [facility] Comment on above: Performed By: #### L [id number] ####[facility] ([facility])[address] [place] [address] NRBC (PER 100 WBCS) BY AUTOMATED COUNT 0.0 % Normal 0 [facility] Comment on above: Performed By: #### L [id number] ####[facility] ([facility])[address] [place] [address] PLATELETS (10*3/UL) IN BLOOD AUTOMATED COUNT 202 10*3/uL Normal 150-400 [facility] Comment on above: Performed By: #### L [id number] ####[facility] ([facility])[address] [place] [address] RBC (Bld) [#/Vol] 4.54 10*6/uL Normal 4.20-5.70 [facility] Comment on above: Performed By: #### L [id number] ####[facility] ([facility])[address] [place] [address] WBC (Bld) [#/Vol] 7.34 10*3/uL Normal 4.00-10.60 [facility] Comment on above: Performed By: #### L [id number] ####[facility] ([facility] [place] [address] CONSULTon 02-13-2024 CONSULT ----- ----- Attestation signed [...] III who presented as a transferred from [facility] with NSTEMI. Cardiology planning for cath later [...] (H) 08/31 (more content not included)... Normal [facility] CONSULT ----- ----- Attestation signed by Yfn [...] III who presented as a transferred from [facility] with NSTEMI. The patient complained of retrosternal [...] and nitro drip. When he arrived to [facility] he was chest pain-free. Troponin this [...] PAIN pantoprazole (Pr (more content not included)... [facility] HPon 02-13-2024 HP H&P reviewed. The patient [...] were addressed and answered. Jenny Fernandez MD [employer] - PGY6 [facility] Pt seen and examined. Agree with above Parul Pena MD [facility] MAGNESIUMon 02-13-2024 Magnesium [Mass/Vol] 2.0 mg/dL Normal 1.9-2.7 [facility] Comment on above: Performed By: #### L [id number] #### [facility] ([facility]) [address] [place] [address] POCT GLUCOSE METER UNSOLICIT ED RESULTSon 02-13-2024 Glucose [Mass/Vol] 200 mg/dL High 70-105 [facility] Comment on above: Order Comment: Waive d Testing in the ED is performed under the ED CLIA certificate #[id number]. Result Comment: roberto [email or web address] Performed By: #### L [id number] #### [facility] [address] [place] [address] Glucose [Mass/Vol] 187 mg/dL High 70-105 [facility] Comment on above: Order Comment: Waive d Testing in the ED is performed under the ED CLIA certificate #[id number]. Result Comment: [email or web address] Performed By: #### L [id number] #### [facility] ([facility]) [address] [place] [address] Glucose [Mass/Vol] 141 mg/dL High 70-105 [facility] Comment on above: Order Comment: Waive d Testing in the ED is performed under the ED CLIA certificate #[id number]. Result Comment: [email or web address] Performed By: #### L [id number] #### [facility] ([facility]) [address] [place] [address] Glucose [Mass/Vol] 166 mg/dL High 70-105 [facility] Comment on above: Order Comment: Waive d Testing in the ED is performed under the ED CLIA certificate #[id number]. Result Comment: [email or web address] Performed By: #### L [id number] #### [facility] ([facility]) [address] [place] [address] PROTIME-INRon 02-13-2024 INR IN PPP BY COAGULATION ASSAY 1.17 High 0.90-1.10 [facility] Comment on above: Result Comment: ACCC P [...] CHEST 1995;[id number]. Performed By: #### L [id number] ####[facility] ([facility])[address] [place] [address] PROTHROMBIN TIME (PT) IN PPP BY COAGULATION ASSAY 14.9 Seconds High 12.3-14.8 [facility] [facility] [place] Comment on above: Performed By: #### L [id number] ####[facility] ([facility])[address] [place] [address] TROPONIN Ion 02-13-2024 Troponin I.cardiac [Mass/Vol] 2.02 ng/mL Critically high 0.00-0.04 [facility] [place] Comment on above: Result Comment: M-SD EVIOUS CRITICAL RESULT Previous result verified on 02/13/2024 0606 on specimen/case [id number] called with component Troponin I for procedure Troponin I with value 3.34 ng/mL. Performed By: #### L [id number] ####[facility] ([facility])[address] [place] [address] Troponin I.cardiac [Mass/Vol] 2.10 ng/mL Critically high 0.00-0.04 [facility] [place] Comment on above: Result Comment: M-SD EVIOUS CRITICAL RESULT Previous result verified on 02/13/2024 0606 on specimen/case [id number] called with component Troponin I for procedure Troponin I with value 3.34 ng/mL. Performed By: #### L [id number] #### [facility] ([facility]) [address] [place] [address] Troponin I.cardiac [Mass/Vol] 3.34 ng/mL Critically high 0.00-0.04 [facility] [place] Comment on above: Result Comment: M-TR OPONIN INITIAL CRITICAL HIGH; RESPUN AND RETESTED Performed By: #### L [id number] #### [facility] ([facility]) [address] [place] [address] Activated partial thrombopla stin time (aPTT) in platelet poor plasma by coagulation aon 02-12-2024 aPTT Coag (PPP) [Time] Activated partial thromboplastin time (aPTT) in platelet poor plasma by coagulation a 22.3-36.2 [facility] Basophils Auto (Bld) [#/Vol] on 02-12-2024 Basophils (Bld) [#/Vol] Automated basophil count 0.0-0.1 [facility] Basophils/100 WBC Auto (Bld) on 02-12-2024 Basophils/100 WBC (Bld) Automated basophil % 0.2-2.0 [facility] Eosinophils/100 WBC Auto (Bl d)on 02-12-2024 Eosinophils/100 WBC (Bld) Automated eosinophil % 0.9-7.0 [facility] Erythrocyte distribution wid th Auto (RBC) [Ratio]on 02-12-2024 Erythrocyte distribution width (RBC) [Ratio] Erythrocyte distribution width [Ratio] by Automated count 11.0-15.0 [facility] Estimated glomerular filtrat ion rate (GFR) non- Americanon 02-12-2024 GFR/1.73 sq M.predicted among non-blacks MDRD (S/P/Bld) [Vol rate/Area] Estimated glomerular filtration rate (GFR) non- Low >=60 mL/min/1.7 3m 2 [facility] Hematocrit Auto (Bld) [Volum e fraction]on 02-12-2024 Hematocrit (Bld) [Volume fraction] Hematocrit [Volume Fraction] of Blood by Automated count 42.0-54.0 [facility] Hemoglobin [Mass/volume] in Bloodon 02-12-2024 Hemoglobin (Bld) [Mass/Vol] Hemoglobin [Mass/volume] in Blood 14.0-18.0 [facility] INR in Platelet poor plasma by Coagulation assayon 02-12-2024 INR Coag (PPP) [Relative time] INR in Platelet poor plasma by Coagulation assay [facility] Comment on above: DESIRED INR:2.0-3.0 CONDITIONS NOT LISTED BELOW2.5-3.5 FOR PROSTHETIC HEART VALVE REPLACEMENT2.5-3.5 RECURRENT THROMBOSIS Laboratory - Chemistry and C hemistry - challengeon 02-12-2024 Calcium [Mass/Vol] 9.4 mg/dL 8.5-10.1 [facility] Chloride [Moles/Vol] 106 mmol/L 98-107 [facility] CO2 [Moles/Vol] 22.9 mmol/L 21.0-32.0 [facility] Creatinine [Mass/Vol] 1.97 mg/dL High 0.70-1.30 [facility] GFR/1.73 sq M.predicted MDRD (S/P/Bld) [Vol rate/Area] 41 mL/min/{1.73_m2} Low >=60 mL/min/1.7 3m 2 [facility] Glucose [Mass/Vol] 236 mg/dL High 74-106 [facility] Potassium [Moles/Vol] 3.9 mmol/L 3.5-5.1 [facility] Comment on above: SPECIMEN SLIGHTLY HE MOLYZED Sodium [Moles/Vol] 141 mmol/L 136-145 [facility] Urea nitrogen [Mass/Vol] 21.0 mg/dL High 7.0-18.0 [facility] Urea nitrogen/Creatinine [Mass ratio] 10.7 mg/mg [facility] Laboratory - Hematology and Cell countson 02-12-2024 Immature granulocytes/100 WBC (Bld) 0.5 % 0.0-0.5 [facility] Leukocytes [#/volume] correc soraya for nucleated erythrocytes in Blood by Automated counon 02-12-2024 WBC corrected for nucl RBC Auto (Bld) [#/Vol] Leukocytes [#/volume] corrected for nucleated erythrocytes in Blood by Automated coun 4.0-11.0 [facility] Lymphocytes Auto (Bld) [#/Vo l]on 02-12-2024 Lymphocytes (Bld) [#/Vol] Lymphocytes [#/volume] in Blood by Automated count 1.2-3.8 [facility] Lymphocytes/100 WBC Auto (Bl d)on 02-12-2024 Lymphocytes/100 WBC (Bld) Lymphocytes/100 leukocytes in Blood by Automated count 20.5-60.0 [facility] MCH Auto (RBC) [Entitic mass ]on 02-12-2024 MCH (RBC) [Entitic mass] MCH [Entitic mass] by Automated count 25.9-34.0 [facility] MCHC Auto (RBC) [Mass/Vol]on 02-12-2024 MCHC (RBC) [Mass/Vol] MCHC [Mass/volume] by Automated count 29.9-35.2 [facility] MCV Auto (RBC) [Entitic vol] on 02-12-2024 MCV (RBC) [Entitic vol] MCV [Entitic volume] by Automated count 80.0-94.0 [facility] Monocytes Auto (Bld) [#/Vol] on 02-12-2024 Monocytes (Bld) [#/Vol] Automated blood monocyte count 0.3-0.8 [facility] Monocytes/100 WBC Auto (Bld) on 02-12-2024 Monocytes/100 WBC (Bld) Automated monocyte % 1.7-12.0 [facility] Neutrophils Auto (Bld) [#/Vo l]on 02-12-2024 Neutrophils (Bld) [#/Vol] Neutrophils [#/volume] in Blood by Automated count 1.4-6.5 [facility] Neutrophils/100 WBC Auto (Bl d)on 02-12-2024 Neutrophils/100 WBC (Bld) Automated neutrophil % 43.0-75.0 [facility] No Panel Informationon 02-11 Troponin I High Sensitivity 85.0 pg/mL Critically high 4.0-76.1 [facility] Comment on above: RESULTS CALLED TO SHAHRAM [...] Eosinophils # (Auto) 0.2 10 3/uL 0.0-0.7 [facility] Immature Granulocyte # (Auto) 0.04 10 3/uL High 0.00-0.03 [facility] Platelet mean volume Auto (B ld) [Entitic vol]on 02-12-2024 Platelet mean volume (Bld) [Entitic vol] Platelet mean volume [Entitic volume] in Blood by Automated count 9.5-13.5 [facility] Platelets Auto (Bld) [#/Vol] on 02-12-2024 Platelets (Bld) [#/Vol] Platelets [#/volume] in Blood by Automated count 150-450 [facility] Prothrombin time (PT)on 01-30 PT Coag (PPP) [Time] Prothrombin time (PT) 9.0- 11.6 [facility] RBC Auto (Bld) [#/Vol]on RBC (Bld) [#/Vol] Erythrocytes [#/volu me] in Blood by Automated count 4.70-6.10 [facility] Serum or plasma anion gap de terminationon 02-12-2024 Anion gap [Moles/Vol] Serum or plasma an ion gap determination [facility] Erythrocyte distribution wid th Auto (RBC) [Ratio]on 12-30-2023 Erythrocyte distribution width (RBC) [Ratio] 14.3 % 11.0-15.0 [facility] Estimated glomerular filtrat ion rate (GFR) non- Americanon 12-30-2023 GFR/1.73 sq M.predicted among non-blacks MDRD (S/P/Bld) [Vol rate/Area] 31 mL/min/{1.73_m2} Low >=60 [facility] Hematocrit Auto (Bld) [Volum e fraction]on 12-30-2023 Hematocrit (Bld) [Volume fraction] 45.2 % 42.0-54.0 [facility] Hemoglobin [Mass/volume] in Bloodon 12-30-2023 Hemoglobin (Bld) [Mass/Vol] 14.8 g/dL 14.0-18.0 [facility] Laboratory - Chemistry and C hemistry - challengeon 12-30-2023 Albumin [Mass/Vol] 3.8 g/dL 3.4-5.0 [facility] Calcium [Mass/Vol] 9.9 mg/dL 8.5-10.1 [facility] Chloride [Moles/Vol] 103 mmol/L 98-107 [facility] CO2 [Moles/Vol] 27.9 mmol/L 21.0-32.0 [facility] Creatinine [Mass/Vol] 2.10 mg/dL High 0.70-1.30 [facility] GFR/1.73 sq M.predicted MDRD (S/P/Bld) [Vol rate/Area] 38 mL/min/{1.73_m2} Low >=60 [facility] Glucose [Mass/Vol] 207 mg/dL High 74-106 [facility] Magnesium [Mass/Vol] 2.1 mg/dL 1.8-2.4 [facility] Potassium [Moles/Vol] 4.7 mmol/L 3.5-5.1 [facility] Sodium [Moles/Vol] 137 mmol/L 136-145 [facility] Urate [Mass/Vol] 4.1 mg/dL 3.5-7.2 [facility] Urea nitrogen [Mass/Vol] 29.0 mg/dL High 7.0-18.0 [facility] Urea nitrogen/Creatinine [Mass ratio] 13.8 mg/mg [facility] Laboratory - Urinalysison Protein (U) [Mass/Vol] 26.9 mg/dL High <=11.9 [facility] Leukocytes [#/volume] correc soraya for nucleated erythrocytes in Blood by Automated counon 12-30-2023 WBC corrected for nucl RBC Auto (Bld) [#/Vol] 8.7 10 3/uL 4.0-11.0 [facility] MCH Auto (RBC) [Entitic mass ]on 12-30-2023 MCH (RBC) [Entitic mass] 30.0 pg 25.9-34.0 [facility] MCHC Auto (RBC) [Mass/Vol]on 12-30-2023 MCHC (RBC) [Mass/Vol] 32.7 g/dL 29.9-35.2 [facility] MCV Auto (RBC) [Entitic vol] on 12-30-2023 MCV (RBC) [Entitic vol] 91.7 fL 80.0-94.0 [facility] No Panel Informationon 12-29 25-Hydroxy Vitamin D Total 47.5 ng/mL [facility] Comment on above: <20 ng/mL Vit D defi cient20-<30 ng/mL Vit D ogbyfhtkuxyg79-191 ng/mL Vit D sufficient>100 ng/mL Potential Toxicity Parathyroid Hormone (Intact) 27 pg/mL 15-65 [facility] Comment on above: Performed at: [facility] [id number] [place], [place] [id number] Director: Kwaku Park PhD, Phone: [phone] Phosphorus Level 3.7 mg/dL 2.6-4.7 [facility] Urine Random Creatinine 85.11 mg/dL 20.00-300. 00 [facility] Platelet mean volume Auto (B ld) [Entitic vol]on 12-30-2023 Platelet mean volume (Bld) [Entitic vol] 9.3 fL Low 9.5-13.5 [facility] Platelets Auto (Bld) [#/Vol] on 12-30-2023 Platelets (Bld) [#/Vol] 193 10 3/uL 150-450 [facility] RBC Auto (Bld) [#/Vol]on RBC (Bld) [#/Vol] 4.93 10 6/uL 4.70-6.10 [facility] Serum or plasma anion gap de terminationon 12-30-2023 Anion gap [Moles/Vol] 10.8 mmol/L [facility] Urine protein/creatinine rat ioon 12-30-2023 Protein/Creatinine (U) [Ratio] 0.32 [facility] HbA1c HPLC (d) [Mass fract ion]on 10-17-2023 HbA1c (Bld) [Mass fraction] 7.5 % [facility] No Panel Informationon 10-16 Bedside Glucose 108 [facility] Activated partial thrombopla stin time (aPTT) in platelet poor plasma by coagulation aon 09-26-2023 aPTT Coag (PPP) [Time] 28.8 s 22.3-36.2 [facility] Basophils Auto (Bld) [#/Vol] on 09-26-2023 Basophils (Bld) [#/Vol] 0.1 10 3/uL 0.0-0.1 [facility] Basophils/100 WBC Auto (Bld) on 09-26-2023 Basophils/100 WBC (Bld) 0.6 % 0.2-2.0 [facility] Eosinophils/100 WBC Auto (Bl d)on 09-26-2023 Eosinophils/100 WBC (Bld) 2.4 % 0.9-7.0 [facility] Erythrocyte distribution wid th Auto (RBC) [Ratio]on 09-26-2023 Erythrocyte distribution width (RBC) [Ratio] 14.3 % 11.0-15.0 [facility] Estimated glomerular filtrat ion rate (GFR) non- Americanon 09-26-2023 GFR/1.73 sq M.predicted among non-blacks MDRD (S/P/Bld) [Vol rate/Area] 39 mL/min/{1.73_m2} Low >=60 [facility] Globulin Calc (S) [Mass/Vol] on 09-26-2023 Globulin (S) [Mass/Vol] 4.0 g/dL [facility] Hematocrit Auto (Bld) [Volum e fraction]on 09-26-2023 Hematocrit (Bld) [Volume fraction] 49.4 % 42.0-54.0 [facility] Hemoglobin [Mass/volume] in Bloodon 09-26-2023 Hemoglobin (Bld) [Mass/Vol] 16.0 g/dL 14.0-18.0 [facility] INR in Platelet poor plasma by Coagulation assayon 09-26-2023 INR Coag (PPP) [Relative time] 0.99 {INR} [facility] Comment on above: DESIRED INR:2.0-3.0 CONDITIONS NOT LISTED BELOW2.5-3.5 FOR PROSTHETIC HEART VALVE REPLACEMENT2.5-3.5 RECURRENT THROMBOSIS Laboratory - Chemistry and C hemistry - challengeon 09-26-2023 Albumin [Mass/Vol] 4.1 g/dL 3.4-5.0 [facility] ALP [Catalytic activity/Vol] 146 U/L High 46-116 [facility] ALT [Catalytic activity/Vol] 32 U/L 16-63 [facility] AST [Catalytic activity/Vol] 26 U/L 15-37 [facility] Bilirubin [Mass/Vol] 0.7 mg/dL 0.2-1.0 [facility] Calcium [Mass/Vol] 9.2 mg/dL 8.5-10.1 [facility] Chloride [Moles/Vol] 104 mmol/L 98-107 [facility] CO2 [Moles/Vol] 24.8 mmol/L 21.0-32.0 [facility] Creatinine [Mass/Vol] 1.72 mg/dL High 0.70-1.30 [facility] GFR/1.73 sq M.predicted MDRD (S/P/Bld) [Vol rate/Area] 48 mL/min/{1.73_m2} Low >=60 [facility] Glucose [Mass/Vol] 206 mg/dL High 74-106 [facility] Potassium [Moles/Vol] 4.2 mmol/L 3.5-5.1 [facility] Protein [Mass/Vol] 8.1 g/dL 6.4-8.2 [facility] Sodium [Moles/Vol] 141 mmol/L 136-145 [facility] Urea nitrogen [Mass/Vol] 26.0 mg/dL High 7.0-18.0 [facility] Urea nitrogen/Creatinine [Mass ratio] 15.1 mg/mg [facility] Laboratory - Hematology and Cell countson 09-26-2023 Immature granulocytes/100 WBC (Bld) 0.3 % 0.0-0.5 [facility] Leukocytes [#/volume] correc soraya for nucleated erythrocytes in Blood by Automated counon 09-26-2023 WBC corrected for nucl RBC Auto (Bld) [#/Vol] 10.5 10 3/uL 4.0-11.0 [facility] Lymphocytes Auto (Bld) [#/Vo l]on 09-26-2023 Lymphocytes (Bld) [#/Vol] 2.0 10 3/uL 1.2-3.8 [facility] Lymphocytes/100 WBC Auto (Bl d)on 09-26-2023 Lymphocytes/100 WBC (Bld) 18.7 % Low 20.5-60.0 [facility] MCH Auto (RBC) [Entitic mass ]on 09-26-2023 MCH (RBC) [Entitic mass] 28.4 pg 25.9-34.0 [facility] MCHC Auto (RBC) [Mass/Vol]on 09-26-2023 MCHC (RBC) [Mass/Vol] 32.4 g/dL 29.9-35.2 [facility] MCV Auto (RBC) [Entitic vol] on 09-26-2023 MCV (RBC) [Entitic vol] 87.7 fL 80.0-94.0 [facility] Monocytes Auto (Bld) [#/Vol] on 09-26-2023 Monocytes (Bld) [#/Vol] 0.8 10 3/uL 0.3-0.8 [facility] Monocytes/100 WBC Auto (Bld) on 09-26-2023 Monocytes/100 WBC (Bld) 7.3 % 1.7-12.0 [facility] Neutrophils Auto (Bld) [#/Vo l]on 09-26-2023 Neutrophils (Bld) [#/Vol] 7.4 10 3/uL High 1.4-6.5 [facility] Neutrophils/100 WBC Auto (Bl d)on 09-26-2023 Neutrophils/100 WBC (Bld) 70.7 % 43.0-75.0 [facility] No Panel Informationon 09-25 Troponin I High Sensitivity 8614.2 pg/mL High 4.0-76.1 [facility] Comment on above: RESULTS CALLED TO DR [...] Eosinophils # (Auto) 0.3 10 3/uL 0.0-0.7 [facility] Immature Granulocyte # (Auto) 0.03 10 3/uL 0.00-0.03 [facility] Platelet mean volume Auto (B ld) [Entitic vol]on 09-26-2023 Platelet mean volume (Bld) [Entitic vol] 10.0 fL 9.5-13.5 [facility] Platelets Auto (Bld) [#/Vol] on 09-26-2023 Platelets (Bld) [#/Vol] 194 10 3/uL 150-450 [facility] Prothrombin time (PT)on 08-31 PT Coag (PPP) [Time] 10.5 s 9.0-11.6 [facility] RBC Auto (Bld) [#/Vol]on RBC (Bld) [#/Vol] 5.63 10 6/uL 4.70-6.10 [facility] Serum or plasma albumin/glob ulin mass ratioon 09-26-2023 Albumin/Globulin [Mass ratio] 1.0 {ratio} [facility] Serum or plasma anion gap de terminationon 09-26-2023 Anion gap [Moles/Vol] 16.4 mmol/L [facility] No Panel Informationon 08-26 Prostate Specific Antigen Screen 1.37 ng/mL <=4.00 [facility] Erythrocyte distribution wid th Auto (RBC) [Ratio]on 06-24-2023 Erythrocyte distribution width (RBC) [Ratio] 14.6 % 11.0-15.0 [facility] Estimated glomerular filtrat ion rate (GFR) non- Americanon 06-24-2023 GFR/1.73 sq M.predicted among non-blacks MDRD (S/P/Bld) [Vol rate/Area] 38 mL/min/{1.73_m2} >=60 [facility] Hematocrit Auto (Bld) [Volum e fraction]on 06-24-2023 Hematocrit (Bld) [Volume fraction] 46.2 % 42.0-54.0 [facility] Hemoglobin [Mass/volume] in Bloodon 06-24-2023 Hemoglobin (Bld) [Mass/Vol] 14.5 g/dL 14.0-18.0 [facility] Laboratory - Chemistry and C hemistry - challengeon 06-24-2023 Albumin [Mass/Vol] 4.0 g/dL 3.4-5.0 [facility] Calcium [Mass/Vol] 9.2 mg/dL 8.5-10.1 [facility] Chloride [Moles/Vol] 106 mmol/L 98-107 [facility] CO2 [Moles/Vol] 25.4 mmol/L 21.0-32.0 [facility] Creatinine [Mass/Vol] 1.76 mg/dL 0.70-1.30 [facility] GFR/1.73 sq M.predicted MDRD (S/P/Bld) [Vol rate/Area] 47 mL/min/{1.73_m2} >=60 [facility] Glucose [Mass/Vol] 212 mg/dL 74-106 [facility] Magnesium [Mass/Vol] 2.1 mg/dL 1.8-2.4 [facility] Potassium [Moles/Vol] 4.5 mmol/L 3.5-5.1 [facility] Sodium [Moles/Vol] 142 mmol/L 136-145 [facility] Urate [Mass/Vol] 4.3 mg/dL 3.5-7.2 [facility] Urea nitrogen [Mass/Vol] 30.0 mg/dL 7.0-18.0 [facility] Urea nitrogen/Creatinine [Mass ratio] 17.0 mg/mg [facility] Laboratory - Urinalysison Protein (U) [Mass/Vol] 11.5 mg/dL <=11.9 [facility] Leukocytes [#/volume] correc soraya for nucleated erythrocytes in Blood by Automated counon 06-24-2023 WBC corrected for nucl RBC Auto (Bld) [#/Vol] 9.6 10 3/uL 4.0-11.0 [facility] MCH Auto (RBC) [Entitic mass ]on 06-24-2023 MCH (RBC) [Entitic mass] 28.5 pg 25.9-34.0 [facility] MCHC Auto (RBC) [Mass/Vol]on 06-24-2023 MCHC (RBC) [Mass/Vol] 31.4 g/dL 29.9-35.2 [facility] MCV Auto (RBC) [Entitic vol] on 06-24-2023 MCV (RBC) [Entitic vol] 90.8 fL 80.0-94.0 [facility] No Panel Informationon 06-23 25-Hydroxy Vitamin D Total 42.5 ng/mL [facility] Comment on above: <20 ng/mL Vit D defi cient20-<30 ng/mL Vit D qipghzbigndc71-383 ng/mL Vit D sufficient>100 ng/mL Potential Toxicity Parathyroid Hormone (Intact) 48 pg/mL 15-65 [facility] Comment on above: Performed at: [facility] [employer] [address] [id number] Director: Kwaku Park PhD, Phone: [phone] Phosphorus Level 3.6 mg/dL 2.6-4.7 [facility] Urine Random Creatinine 60.60 mg/dL 20.00-300. 00 [facility] Platelet mean volume Auto (B ld) [Entitic vol]on 06-24-2023 Platelet mean volume (Bld) [Entitic vol] 10.2 fL 9.5-13.5 [facility] Platelets Auto (Bld) [#/Vol] on 06-24-2023 Platelets (Bld) [#/Vol] 178 10 3/uL 150-450 [facility] RBC Auto (Bld) [#/Vol]on RBC (Bld) [#/Vol] 5.09 10 6/uL 4.70-6.10 [facility] Serum or plasma anion gap de terminationon 06-24-2023 Anion gap [Moles/Vol] 15.1 mmol/L [facility] Urine protein/creatinine rat ioon 06-24-2023 Protein/Creatinine (U) [Ratio] 0.19 [facility] HbA1c HPLC (Bld) [Mass fract ion]on 06-18-2023 HbA1c (Bld) [Mass fraction] 6.1 % [facility] No Panel Informationon 06-17 Bedside Glucose 150 [facility] Cholesterol in LDL Calc [Mas s/Vol]on 06-13-2023 Cholesterol in LDL [Mass/Vol] 29.0 mg/dL [facility] Comment on above: <100 mg/dl EXSPEHL12 0-129 mg/dl NEAR OR ABOVE [id number] mg/dl BORDERLINE [id number] mg/dl HIGH>190 mg/dl VERY HIGH Cholesterol in VLDL Calc [Ma ss/Vol]on 03-14-2024 Cholesterol in VLDL [Mass/Vol] 24.8 mg/dL [facility] Laboratory - Chemistry and C hemistry - challengeon 06-13-2023 Cholesterol [Mass/Vol] 87 mg/dL <=200 [facility] Cholesterol in HDL [Mass/Vol] 34 mg/dL 40-60 [facility] Comment on above: > or =60 mg/dl - LOW CARDIOVASCULAR RISK<40 mg/dl - HIGH CARDIOVASCULAR RISK Triglyceride [Mass/Vol] 124 mg/dL <=150 [facility] Serum or plasma total choles terol/high density lipoprotein (HDL) cholesterol mass yulia 06-13-2023 Cholesterol.total/Chol esterol in HDL [Mass ratio] 2.6 {ratio} [facility] Comment on above: 3.3 - 4.4 LOW RISK4. 4 - 7.1 AVERAGE RISK7.1 - 11.0 MODERATE RISK>11.0 HIGH RISK A1C HEMOGLOBINon 03-12-2023 HbA1c (Bld) [Mass fraction] 7.1 % [employer] Other Glucose - FINGER STICKon Glucose [Mass/Vol] 151 mg/dL [employer] Other HbA1c (Bld) [Mass fraction]o n 03-12-2023 A1C HEMOGLOBIN [facility] Other CT CHEST WO CONon CT CHEST WO CON EXAMINATION: CT CHES [...] HAZEL SCHILLING Date: 2022-08-09 14:00 Normal [facility] A1C HEMOGLOBINon 06-26-2022 HbA1c (Bld) [Mass fraction] 7.4 % [employer] Other Glucose - FINGER STICKon Glucose [Mass/Vol] 267 mg/dL [employer] Other HbA1c (Bld) [Mass fraction]o n 06-26-2022 A1C HEMOGLOBIN [employer] Other PTH INTACTon 06-26-2022 PTH, Intact 37 pg/mL Normal 15-65 [facility] Comment on above: Performed By: #### C MP, CMADM #### [facility] [address] [place] [address] Dr. Mirza Sadler FERRITINon 06-25-2022 Ferritin [Mass/Vol] 269.0 ng/mL Normal 26.0-388.0 [facility] Comment on above: Performed By: #### B WET MILLING WHEEL OPERATOR #### [facility] [address] [address] [address] Mirza Sadler HEMOGRAM AND PLATELon 2022 Hematocrit (Bld) [Volume fraction] 44.7 % Normal 42.0-54.0 [facility] Comment on above: Performed By: #### P T, PTT #### [facility] [address] [place] [address] Dr. Mirza Sadler Hemoglobin (Bld) [Mass/Vol] 15.1 g/dL Normal 14.0-18.0 [facility] Comment on above: Performed By: #### P T, PTT #### [facility] [address] [place] [address] Dr. Mirza Sadler MCH (RBC) [Entitic mass] 30.0 pg Normal 25.9-34.0 [facility] Comment on above: Performed By: #### P T, PTT #### [facility] [address] [place] [address] Dr. Mirza Sadler MCHC (RBC) [Mass/Vol] 33.8 g/dL Normal 29.9-35.2 [facility] Comment on above: Performed By: #### P T, PTT #### [facility] [address] [place] [address] Dr. Mirza Sadler MCV (RBC) [Entitic vol] 88.9 fL Normal 80.0-94.0 [facility] Comment on above: Performed By: #### P T, PTT #### [facility] [address] [place] [address] Dr. Mirza Sadler PLT 199 103/ul Normal 150-450 [facility] Comment on above: Performed By: #### P T, PTT #### [facility] [address] [place] [address] Dr. Mirza Sadler RBC 5.03 106/ul Normal 4.70-6.10 [facility] Comment on above: Performed By: #### P T, PTT #### [facility] [address] [place] [address] Dr. Mirza Sadler WBC 8.7 103/ul Normal 4.0-11.0 [facility] Comment on above: Performed By: #### P T, PTT #### [facility] [address] [place] [address] Dr. Mirza Sadler IRON AND TIBCon 06-25-2022 % SATURATION 28.6 % Normal [facility] Comment on above: Performed By: #### B WET MILLING WHEEL OPERATOR #### [facility] [address] [place] [address] Dr. Mirza Sadler Iron [Mass/Vol] 82.0 ug/dL Normal 65.0-175.0 [facility] Comment on above: Performed By: #### B WET MILLING WHEEL OPERATOR #### [facility] [address] [place] [address] Dr. Mirza Sadler TIBC DIRECT 287.0 ug/dL Normal 250.0-450. 0 [facility] Comment on above: Performed By: #### B WET MILLING WHEEL OPERATOR #### [facility] [address] [place] [address] Dr. Mirza Sadler MAGNESIUMon 06-25-2022 Magnesium [Mass/Vol] 2.0 mg/dL Normal 1.8-2.4 [facility] Comment on above: Performed By: #### B WET MILLING WHEEL OPERATOR #### [facility] [address] [place] [address] Dr. Mirza Sadler RENAL FUNCTION PANELon 06-25 Albumin [Mass/Vol] 4.2 g/dL Normal 3.4-5.0 [facility] Comment on above: Performed By: #### B WET MILLING WHEEL OPERATOR #### [facility] [address] [place] [address] Dr. Mirza Sadler Calcium [Mass/Vol] 9.3 mg/dL Normal 8.5-10.1 [facility] Comment on above: Performed By: #### B WET MILLING WHEEL OPERATOR #### [facility] [address] [place] [address] Dr. Mirza Sadler Chloride [Moles/Vol] 108 mmol/L Critically high 98-107 [facility] Comment on above: Performed By: #### B WET MILLING WHEEL OPERATOR #### [facility] [address] [place] [address] Dr. Mirza Sadler CO2 [Moles/Vol] 29.5 mmol/L Normal 21.0-32.0 [facility] Comment on above: Performed By: #### B WET MILLING WHEEL OPERATOR #### [facility] [address] [place] [address] Dr. Mirza Sadler Creatinine [Mass/Vol] 1.87 mg/dL Critically high 0.70-1.30 [facility] Comment on above: Performed By: #### B WET MILLING WHEEL OPERATOR #### [facility] [address] [address] [address] Mirza Sadler EGFR-AF SENEGALESE 43 mL/min/1.73m2 Critically low >=60 [facility] Comment on above: Performed By: #### B WET MILLING WHEEL OPERATOR #### [facility] [address] [address] [address] Mirza Sadler EGFR-NON AF SENEGALESE 36 mL/min/1.73m2 Critically low >=60 [facility] Comment on above: Performed By: #### B WET MILLING WHEEL OPERATOR #### [facility] [address] [address] [address] Mirza Sadler Glucose [Mass/Vol] 181 mg/dL Critically high 74-106 [facility] Comment on above: Performed By: #### B WET MILLING WHEEL OPERATOR #### [facility] [address] [place] [address] Dr. Mirza Sadler Phosphate [Mass/Vol] 4.8 mg/dL Critically high 2.6-4.7 [facility] Comment on above: Performed By: #### B WET MILLING WHEEL OPERATOR #### [facility] [address] [place] [address] Dr. Mirza Sadler Potassium [Moles/Vol] 4.8 mmol/L Normal 3.5-5.1 [facility] Comment on above: Performed By: #### B WET MILLING WHEEL OPERATOR #### [facility] [address] [place] [address] Dr. Mirza Sadler Sodium [Moles/Vol] 146 mmol/L Critically high 136-145 [facility] Comment on above: Performed By: #### B WET MILLING WHEEL OPERATOR #### [facility] [address] [place] [address] Dr. Mirza Sadler Urea nitrogen [Mass/Vol] 40.0 mg/dL Critically high 7.0-18.0 [facility] Comment on above: Performed By: #### B WET MILLING WHEEL OPERATOR #### [facility] [address] [place] [address] Dr. Mirza Sadler UA RANDOM W/MICROSCOPICon BACTERIA NONE SEEN Normal NONE SEEN [facility] Comment on above: Performed By: #### H STROPN #### [facility] [address] [place], [place] [id number] Dr. Mirza Sadler Bilirubin Ql (U) Negative Normal NEGATIVE [facility] Comment on above: Performed By: #### H STROPN #### [facility] [address] [place] [address] Dr. Mirza Sadler CAST NONE SEEN Normal NONE SEEN [facility] Comment on above: Performed By: #### H STROPN #### [facility] [address] [place] [address] Dr. Mirza Sadler Clarity (U) CLEAR Normal CLEAR [facility] Comment on above: Performed By: #### H STROPN #### [facility] [address] [place] [address] Dr. Mirza Sadler Color (U) LT. YELLOW Normal YELLOW [facility] Comment on above: Performed By: #### H STROPN #### [facility] [address] [place] [address] Dr. Mirza Sadler Crystals LM Nom (Urine sed) NONE SEEN Normal NONE SEEN [facility] Comment on above: Performed By: #### H STROPN #### [facility] [address] [place] [address] Dr. Mirza Sadler Epithelial cells LM Ql (Urine sed) FEW Abnormal NONE SEEN /RARE [facility] Comment on above: Performed By: #### H STROPN #### [facility] [address] [place] [address] Dr. Mirza Sadler Glucose Ql (U) 500 mg/dl Abnormal NEGATIVE [facility] Comment on above: Performed By: #### H STROPN #### [facility] [address] [place] [address] Dr. Mirza Sadler Hemoglobin Ql (U) Negative Normal NEGATIVE [facility] Comment on above: Performed By: #### H STROPN #### [facility] [address] [place] [address] Dr. Mirza Sadler Ketones Ql (U) Negative Normal NEGATIVE [facility] Comment on above: Performed By: #### H STROPN #### [facility] [address] [place] [address] Dr. Mirza Sadler LEUKOCYTES Negative Normal NEGATIVE [facility] Comment on above: Performed By: #### H STROPN #### [facility] [address] [place] [address] Dr. Mirza Sadler MUCOUS NONE SEEN Normal NONE SEEN [facility] Comment on above: Performed By: #### H STROPN #### [facility] [address] [place] [address] Dr. Miraz Sadler Nitrite Ql (U) Negative Normal NEGATIVE [facility] Comment on above: Performed By: #### H STROPN #### [facility] [address] [place] [address] Dr. Mirza Sadler pH (U) 5.5 [pH] Normal 5-9 [facility] Comment on above: Performed By: #### H STROPN #### [facility] [address] [place] [address] Dr. Mirza Sadler RBC 0-2 Normal 0-2 [facility] Comment on above: Performed By: #### H STROPN #### [facility] [address] [place] [address] Dr. Mirza Sadler SPEC GRAVITY 1.015 Normal 1.005-<=1. 025 [facility] Comment on above: Performed By: #### H STROPN #### [facility] [address] [place] [address] Dr. Mirza Sadler UA PROTEIN Negative Normal NEGATIVE/ TRACE [facility] Comment on above: Performed By: #### H STROPN #### [facility] [address] [place] [address] Dr. Mirza Sadler Urobilinogen Qn (U) 0.2 {Luisito'U}/dL Normal 0.2 - 1. 0 [facility] Comment on above: Performed By: #### H STROPN #### [facility] [address] [place] [address] Dr. Mirza Sadler WBC NONE SEEN Normal NONE SEEN [facility] Comment on above: Performed By: #### H STROPN #### [facility] [address] [place] [address] Dr. Mirza Sadler URIC ACID SERUMon 03-27-2023 Urate [Mass/Vol] 6.1 mg/dL Normal 3.5-7.2 [facility] Comment on above: Performed By: #### B WET MILLING WHEEL OPERATOR #### [facility] [address] [place] [address] Dr. Mirza Sadler URINE T PROTEIN CREAT RATIOo n 06-25-2022 Protein (U) [Mass/Vol] 9.7 mg/dL Normal <=12.0 [facility] Comment on above: Performed By: #### C TANIA, DOMDM #### [facility] [address] [place] [address] Dr. Mirza Sadler UR PROT CREAT RAT 0.14 Normal [facility] Comment on above: Performed By: #### C TANIA, CMADM #### [facility] [address] [place] [address] Dr. Mirza Sadler URINE CREAT 71.45 mg/dL Normal 20.00-300. 00 [facility] Comment on above: Performed By: #### C TANIA, DOMDM #### [facility] [address] [place] [address] Dr. Mirza Sadler VITAMIN D 25 OHon 06-25-2022 VIT D 25-OH 44.7 ng/mL Normal [facility] Comment on above: Performed By: #### E RUR #### [facility] [address] [place] [address] Dr. Mirza Sadler VIT D RANGES SEE BELOW Normal [facility] Comment on above: Result Comment: <20 ng/mL Vit D deficient 20 - <30 ng/mL Vit D insufficient 30 - 100 ng/mL Vit D sufficient >100 ng/mL Potential Toxicity Performed By: #### E RUR #### [facility] [address] [place] [address] Dr. Mirza Sadler LIPID PROFILEon 06-18-2022 CHOL-HDL RATIO NORM SEE BELOW Normal [facility] Comment on above: Result Comment: 3.3 - 4.4 LOW RISK 4.4 - 7.1 AVERAGE RISK 7.1 - 11.0 MODERATE RISK >11.0 HIGH RISK Performed By: #### H STROPN #### [facility] [address] [address] [address] Mirza Sadler Cholesterol [Mass/Vol] 136 mg/dL Normal <=200 [facility] Comment on above: Performed By: #### H STROPN #### [facility] [address] [address] [address] Mirza Sadler Cholesterol in HDL [Mass/Vol] 38 mg/dL Critically low 40-60 [facility] Comment on above: Performed By: #### H STROPN #### [facility] [address] [address] [address] Mirza Sadler Cholesterol in LDL [Mass/Vol] 69.6 mg/dL Normal [facility] Comment on above: Performed By: #### H STROPN #### [facility] [address] [address] [address] Mirza Sadler Cholesterol.total/Chol esterol in HDL [Mass ratio] 3.6 {ratio} Normal [facility] Comment on above: Performed By: #### H STROPN #### [facility] [address] [address] [address] Mirza Sadler HDL NORMAL > or = 60 mg/dl - LO W CARDIOVASCULAR RISK <40 mg/dl - HIGH CARDIOVASCULAR RISK Normal [facility] Comment on above: Performed By: #### H STROPN #### [facility] [address] [place] [address] Dr. Mirza Sadler LDL CALC NORMAL SEE BELOW Normal [facility] Comment on above: Result Comment: <100 mg/dl OPTIMAL 100 - 129 mg/dl NEAR OR ABOVE OPTIMAL 130 - 159 mg/dl BORDERLINE HIGH 160 - 189 mg/dl HIGH >190 mg/dl VERY HIGH Performed By: #### H STROPN #### [facility] [address] [address] [address] Mirza Sadler Triglyceride [Mass/Vol] 142 mg/dL Normal <=150 [facility] Comment on above: Performed By: #### H STROPN #### [facility] [address] [address] [address] Mirza Sadler VLDL CALC 28.4 mg/dL Normal [facility] Comment on above: Performed By: #### H STROPN #### [facility] [address] [place], [place] [address] CHEST WO CONon [...] by: HIGINIO FLANAGAN Date: 2022-06-05 16:58 Normal [facility] CT CHEST WO CON [employer] Other PROF CHEM 8 (BAS METB)on Anion gap [Moles/Vol] 10.2 mmol/L Normal [facility] Comment on above: Performed By: #### B WET MILLING WHEEL OPERATOR #### [facility] [address] [place], [place] [address] Dr. Mirza Sadler Calcium [Mass/Vol] 8.9 mg/dL Normal 8.5-10.1 [facility] Comment on above: Performed By: #### B WET MILLING WHEEL OPERATOR #### [facility] [address] [place], [place] [address] Dr. Mirza Sadler Chloride [Moles/Vol] 101 mmol/L Normal 98-107 [facility] Comment on above: Performed By: #### B WET MILLING WHEEL OPERATOR #### [facility] [address] [place] [address] Dr. Mirza Sadler CO2 [Moles/Vol] 31.2 mmol/L Normal 21.0-32.0 [facility] Comment on above: Performed By: #### B WET MILLING WHEEL OPERATOR #### [facility] [address] [place] [address] Dr. Mirza Sadler Creatinine [Mass/Vol] 1.91 mg/dL Critically high 0.70-1.30 [facility] Comment on above: Performed By: #### B WET MILLING WHEEL OPERATOR #### [facility] [address] [place] [address] Dr. Mirza Sadler EGFR-AF S[place]ESE 42 mL/min/1.73m2 Critically low >=60 [facility] Comment on above: Performed By: #### B WET MILLING WHEEL OPERATOR #### [facility] [address] [place] [address] Dr. Mirza Sadler EGFR-NON AF [place] 35 mL/min/1.73m2 Critically low >=60 [facility] Comment on above: Performed By: #### B WET MILLING WHEEL OPERATOR #### [facility] [address] [place] [address] Dr. Mirza Sadler Glucose [Mass/Vol] 242 mg/dL Critically high 74-106 [facility] Comment on above: Performed By: #### B WET MILLING WHEEL OPERATOR #### [facility] [address] [place] [address] Dr. Mirza Sadler Potassium [Moles/Vol] 4.4 mmol/L Normal 3.5-5.1 [facility] Comment on above: Performed By: #### B WET MILLING WHEEL OPERATOR #### [facility] [address] [place] [address] Dr. Mirza Sadler Sodium [Moles/Vol] 138 mmol/L Normal 136-145 [facility] Comment on above: Performed By: #### B WET MILLING WHEEL OPERATOR #### [facility] [address] [place] [address] Dr. Mirza Sadler Urea nitrogen [Mass/Vol] 33.0 mg/dL Critically high 7.0-18.0 [facility] Comment on above: Performed By: #### B WET MILLING WHEEL OPERATOR #### [facility] [address] [place] [address] Dr. Mirza Sadler Urea nitrogen/Creatinine [Mass ratio] 17.3 mg/mg Normal [facility] Comment on above: Performed By: #### B WET MILLING WHEEL OPERATOR #### [facility] [address] [place] [address] Dr. Mirza Sadler PROF CHEM 8 (BAS METB)on Anion gap [Moles/Vol] 10.7 mmol/L Normal [facility] Comment on above: Performed By: #### P T, PTT #### [facility] [address] [place] [address] Dr. Mirza Sadler Calcium [Mass/Vol] 8.9 mg/dL Normal 8.5-10.1 [facility] Comment on above: Performed By: #### P T, PTT #### [facility] [address] [place] [address] Dr. Mirza Sadler Chloride [Moles/Vol] 104 mmol/L Normal 98-107 [facility] Comment on above: Performed By: #### P T, PTT #### [facility] [address] [place] [address] Dr. Mirza Sadler CO2 [Moles/Vol] 29.4 mmol/L Normal 21.0-32.0 [facility] Comment on above: Performed By: #### P T, PTT #### [facility] [address] [place] [address] Dr. Mirza Sadler Creatinine [Mass/Vol] 1.75 mg/dL Critically high 0.70-1.30 [facility] Comment on above: Performed By: #### P T, PTT #### [facility] [address] [place] [address] Dr. Mirza Sadler EGFR-AF S[place] 47 mL/min/1.73m2 Critically low >=60 [facility] Comment on above: Performed By: #### P T, PTT #### [facility] [address] [place] [address] Dr. Mirza Sadler EGFR-NON AF [place]ESE 39 mL/min/1.73m2 Critically low >=60 [facility] Comment on above: Performed By: #### P T, PTT #### [facility] [address] [address] [address] Mirza Sadler Glucose [Mass/Vol] 191 mg/dL Critically high 74-106 [facility] Comment on above: Performed By: #### P T, PTT #### [facility] [address] [address] [address] Mirza Sadler Potassium [Moles/Vol] 4.1 mmol/L Normal 3.5-5.1 [facility] Comment on above: Performed By: #### P T, PTT #### [facility] [address] [address] [address] Mirza Sadler Sodium [Moles/Vol] 140 mmol/L Normal 136-145 [facility] Comment on above: Performed By: #### P T, PTT #### [facility] [address] [address] [address] Mirza Sadler Urea nitrogen [Mass/Vol] 31.0 mg/dL Critically high 7.0-18.0 [facility] Comment on above: Performed By: #### P T, PTT #### [facility] [address] [address] [address] Mirza Sadler Urea nitrogen/Creatinine [Mass ratio] 17.7 mg/mg Normal [facility] Comment on above: Performed By: #### P T, PTT #### [facility] [address] [address] [address] Mirza Sadler XR CHEST 2 Von [...] by: HIGINIO FLANAGAN Date: 2022-03-22 16:12 Normal [facility] A1C HEMOGLOBINon 03-20-2022 HbA1c (Bld) [Mass fraction] 6.7 % [employer] Other Glucose - FINGER STICKon Glucose [Mass/Vol] 193 mg/dL [employer] Other HbA1c (Bld) [Mass fraction]o n 03-20-2022 A1C HEMOGLOBIN [facility]FPay Other BNPon 03-13-2022 Natriuretic peptide B (Bld) [Mass/Vol] 4825.0 pg/mL Critically high <=900.0 [facility] Comment on above: Performed By: #### E RUR #### [facility] [address] [place] [address] Dr. Mirza Sadler CBC AUTO DIFFon 03-13-2022 BASO # 0.0 103/ul Normal 0.0-0.1 [facility] Comment on above: Performed By: #### E RUR #### [facility] [address] [place] [address] Dr. Mirza Sadler Basophils/100 WBC (Bld) 0.6 % Normal 0.2-2.0 [facility] Comment on above: Performed By: #### E RUR #### [facility] [address] [place] [address] Dr. Mirza Sadler EO # 0.1 103/ul Normal 0.0-0.7 [facility] Comment on above: Performed By: #### E RUR #### [facility] [address] [place] [address] Dr. Mirza Sadler Eosinophils/100 WBC (Bld) 1.8 % Normal 0.9-7.0 [facility] Comment on above: Performed By: #### E RUR #### [facility] [address] [place] [address] Dr. Mirza aSdler Erythrocyte distribution width (RBC) [Ratio] 14.4 % Normal 11.0-15.0 [facility] Comment on above: Performed By: #### E RUR #### [facility] [address] [place] [address] Dr. Mirza Sadler Hematocrit (Bld) [Volume fraction] 36.1 % Critically low 42.0-54.0 [facility] Comment on above: Performed By: #### E RUR #### [facility] [address] [place] [address] Dr. Mirza Sadler Hemoglobin (Bld) [Mass/Vol] 11.9 g/dL Critically low 14.0-18.0 [facility] Comment on above: Performed By: #### E RUR #### [facility] [address] [place] [address] Dr. Mirza Sadler IG # 0.02 10e3/ul Normal 0.00-0.03 [facility] Comment on above: Performed By: #### E RUR #### [facility] [address] [place] [address] Dr. Mirza Sadler IG % 0.3 % Normal 0.0-0.5 [facility] Comment on above: Performed By: #### E RUR #### [facility] [address] [place] [address] Dr. Mirza Sadler LYMPH # 1.5 103/ul Normal 1.2-3.8 [facility] Comment on above: Performed By: #### E RUR #### [facility] [address] [place] [address] Dr. Mirza Sadler Lymphocytes/100 WBC (Bld) 22.6 % Normal 20.5-60.0 [facility] Comment on above: Performed By: #### E RUR #### [facility] [address] [place] [address] Dr. Mirza Sadler MANUAL DIFF REQ NO Normal [facility] Comment on above: Performed By: #### E RUR #### [facility] [address] [place] [address] Dr. Mirza Sadler MCH (RBC) [Entitic mass] 29.0 pg Normal 25.9-34.0 [facility] Comment on above: Performed By: #### E RUR #### [facility] [address] [place] [address] Dr. Mirza Sadler MCHC (RBC) [Mass/Vol] 33.0 g/dL Normal 29.9-35.2 [facility] Comment on above: Performed By: #### E RUR #### [facility] [address] [place] [address] Dr. Mirza Sadler MCV (RBC) [Entitic vol] 88.0 fL Normal 80.0-94.0 [facility] Comment on above: Performed By: #### E RUR #### [facility] [address] [place] [address] Dr. Mirza Sadler MONO # 0.7 103/ul Normal 0.3-0.8 [facility] Comment on above: Performed By: #### E RUR #### [facility] [address] [place] [address] Dr. Mirza Sadler Monocytes/100 WBC (Bld) 10.2 % Normal 1.7-12.0 [facility] Comment on above: Performed By: #### E RUR #### [facility] [address] [place] [address] Dr. Mirza Sadler NEUT # 4.3 103/ul Normal 1.4-6.5 [facility] Comment on above: Performed By: #### E RUR #### [facility] [address] [place] [address] Dr. Mirza Sadler Neutrophils/100 WBC (Bld) 64.5 % Normal 43.0-75.0 [facility] Comment on above: Performed By: #### E RUR #### [facility] [address] [place] [address] Dr. Mirza Sadler Platelet mean volume (Bld) [Entitic vol] 9.7 fL Normal 9.5-13.5 [facility] Comment on above: Performed By: #### E RUR #### [facility] [address] [address] [address] Mirza Sadler PLT 149 103/ul Critically low 150-450 [facility] Comment on above: Performed By: #### E RUR #### [facility] [address] [address] [address] Mirza Sadler RBC 4.10 106/ul Critically low 4.70-6.10 [facility] Comment on above: Performed By: #### E RUR #### [facility] [address] [place] [address] Dr. Mirza Sadler WBC 6.6 103/ul Normal 4.0-11.0 [facility] Comment on above: Performed By: #### E RUR #### [facility] [address] [place] [address] Dr. Mirza Sadler PROF CHEM 8 (BAS METB)on Anion gap [Moles/Vol] 14.6 mmol/L Normal [facility] Comment on above: Performed By: #### E RUR #### [facility] [address] [place] [address] Dr. Mirza Sadler Calcium [Mass/Vol] 8.5 mg/dL Normal 8.5-10.1 [facility] Comment on above: Performed By: #### E RUR #### [facility] [address] [place] [address] Dr. Mirza Sadler Chloride [Moles/Vol] 104 mmol/L Normal 98-107 [facility] Comment on above: Performed By: #### E RUR #### [facility] [address] [place] [address] Dr. Mirza Sadler CO2 [Moles/Vol] 22.7 mmol/L Normal 21.0-32.0 [facility] Comment on above: Performed By: #### E RUR #### [facility] [address] [place] [address] Dr. Mirza Sadler Creatinine [Mass/Vol] 1.78 mg/dL Critically high 0.70-1.30 [facility] Comment on above: Performed By: #### E RUR #### [facility] [address] [address] [address] Mirza Sadler EGFR-AF S[place] 46 mL/min/1.73m2 Critically low >=60 [facility] Comment on above: Performed By: #### E RUR #### [facility] [address] [address] [address] Mirza Sadler EGFR-NON AF [place] 38 mL/min/1.73m2 Critically low >=60 [facility] Comment on above: Performed By: #### E RUR #### [facility] [address] [address] [address] Mirza Sadler Glucose [Mass/Vol] 121 mg/dL Critically high 74-106 T [facility] Comment on above: Performed By: #### E RUR #### [facility] [address] [address] [address] Mirza Sadler Potassium [Moles/Vol] 3.3 mmol/L Critically low 3.5-5.1 [facility] Comment on above: Performed By: #### E RUR #### [facility] [address] [address] [address] Mirza Sadler Sodium [Moles/Vol] 138 mmol/L Normal 136-145 [facility] Comment on above: Performed By: #### E RUR #### [facility] [address] [address] [address] Mirza Sadelr Urea nitrogen [Mass/Vol] 30.0 mg/dL Critically high 7.0-18.0 [facility] Comment on above: Performed By: #### E RUR #### [facility] [address] [address] [address] Mirza Sadler Urea nitrogen/Creatinine [Mass ratio] 16.9 mg/mg Normal [facility] Comment on above: Performed By: #### E RUR #### [facility] [address] [address] [address] Mirza Sadler BNPon 03-12-2022 Natriuretic peptide B (Bld) [Mass/Vol] 7452.0 pg/mL Critically high <=900.0 [facility] Comment on above: Performed By: #### C MP, CMADM #### [facility] [address] [place] [address] Dr. Mirza Sadler CBC AUTO DIFFon 03-12-2022 BASO # 0.0 103/ul Normal 0.0-0.1 [facility] Comment on above: Performed By: #### P T, PTT #### [facility] [address] [place] [address] Dr. Mirza Sadler Basophils/100 WBC (Bld) 0.4 % Normal 0.2-2.0 [facility] Comment on above: Performed By: #### P T, PTT #### [facility] [address] [place] [address] Dr. Mirza Sadler EO # 0.0 103/ul Normal 0.0-0.7 [facility] Comment on above: Performed By: #### P T, PTT #### [facility] [address] [place] [address] Dr. Mirza Sadler Eosinophils/100 WBC (Bld) 0.2 % Critically low 0.9-7.0 [facility] Comment on above: Performed By: #### P T, PTT #### [facility] [address] [place] [address] Dr. Mirza Sadler Erythrocyte distribution width (RBC) [Ratio] 14.6 % Normal 11.0-15.0 [facility] Comment on above: Performed By: #### P T, PTT #### [facility] [address] [place] [address] Dr. Mirza Sadler Hematocrit (Bld) [Volume fraction] 37.8 % Critically low 42.0-54.0 [facility] Comment on above: Performed By: #### P T, PTT #### [facility] [address] [place] [address] Dr. Mirza Sadler Hemoglobin (Bld) [Mass/Vol] 12.2 g/dL Critically low 14.0-18.0 [facility] Comment on above: Performed By: #### P T, PTT #### [facility] [address] [place] [address] Dr. iMrza Sadler IG # 0.03 10e3/ul Normal 0.00-0.03 [facility] Comment on above: Performed By: #### P T, PTT #### [facility] [address] [place] [address] Dr. Mirza Sadler IG % 0.3 % Normal 0.0-0.5 [facility] Comment on above: Performed By: #### P T, PTT #### [facility] [address] [place] [address] Dr. Mirza Sadler LYMPH # 1.2 103/ul Normal 1.2-3.8 [facility] Comment on above: Performed By: #### P T, PTT #### [facility] [address] [place] [address] Dr. Mirza Sadler Lymphocytes/100 WBC (Bld) 11.5 % Critically low 20.5-60.0 [facility] Comment on above: Performed By: #### P T, PTT #### [facility] [address] [place] [address] Dr. Mriza Sadler MANUAL DIFF REQ NO Normal [facility] Comment on above: Performed By: #### P T, PTT #### [facility] [address] [place] [address] Dr. Mirza Sadler MCH (RBC) [Entitic mass] 29.0 pg Normal 25.9-34.0 [facility] Comment on above: Performed By: #### P T, PTT #### [facility] [address] [place] [address] Dr. Mirza Sadler MCHC (RBC) [Mass/Vol] 32.3 g/dL Normal 29.9-35.2 [facility] Comment on above: Performed By: #### P T, PTT #### [facility] [address] [place] [address] Dr. Mirza Sadler MCV (RBC) [Entitic vol] 89.8 fL Normal 80.0-94.0 [facility] Comment on above: Performed By: #### P T, PTT #### [facility] [address] [place] [address] Dr. Mirza Sadler MONO # 0.7 103/ul Normal 0.3-0.8 [facility] Comment on above: Performed By: #### P T, PTT #### [facility] [address] [place] [address] Dr. Mirza Sadler Monocytes/100 WBC (Bld) 6.8 % Normal 1.7-12.0 [facility] Comment on above: Performed By: #### P T, PTT #### [facility] [address] [place] [address] Dr. Mirza Sadler NEUT # 8.5 103/ul Critically high 1.4-6.5 [facility] Comment on above: Performed By: #### P T, PTT #### [facility] [address] [place] [address] Dr. Mirza Sadler Neutrophils/100 WBC (Bld) 80.8 % Critically high 43.0-75.0 [facility] Comment on above: Performed By: #### P T, PTT #### [facility] [address] [place] [address] Dr. Mirza Sadler Platelet mean volume (Bld) [Entitic vol] 9.8 fL Normal 9.5-13.5 [facility] Comment on above: Performed By: #### P T, PTT #### [facility] [address] [place] [address] Dr. Mirza Sadler PLT 165 103/ul Normal 150-450 [facility] Comment on above: Performed By: #### P T, PTT #### [facility] [address] [place] [address] Dr. Mirza Sadler RBC 4.21 106/ul Critically low 4.70-6.10 [facility] Comment on above: Performed By: #### P T, PTT #### [facility] [address] [place] [address] Dr. Mirza Sadler WBC 10.5 103/ul Normal 4.0-11.0 [facility] Comment on above: Performed By: #### P T, PTT #### [facility] [address] [place] [address] Dr. Mirza Sadler ECHOCARDIO M/2D COMPLETEon 1 05-13-2021 ECHOCARDIO M/2D COMPLETE Patient: LANI LIZAMA Exam Date: 03/12/2022 : 1950 Gender:M Ordering : DR OBDULIO ALVA . Admission #: [id number] Family : HARLEY CRESPO D.O. Order #: [id number] CLICK HERE TO VIEW EXAM ECHOCARDIOGRAM REPORT [...] Foreman M.D. on 03/13/2022 at 17:42 Normal [facility] PROF CHEM 8 (BAS METB)on Anion gap [Moles/Vol] 17.8 mmol/L Normal [facility] Comment on above: Performed By: #### C TEGAN MARIN #### [facility] [address] [place] [address] Dr. Mirza Sadler Calcium [Mass/Vol] 8.6 mg/dL Normal 8.5-10.1 [facility] Comment on above: Performed By: #### C TEGAN MARIN #### [facility] [address] [place] [address] Dr. Mirza Sadler Chloride [Moles/Vol] 103 mmol/L Normal 98-107 [facility] Comment on above: Performed By: #### C TEGAN MARIN #### [facility] [address] [place] [address] Dr. Mirza Sadler CO2 [Moles/Vol] 22.3 mmol/L Normal 21.0-32.0 [facility] Comment on above: Performed By: #### C TEGAN MARIN #### [facility] [address] [address] [address] Mirza Sadler Creatinine [Mass/Vol] 1.81 mg/dL Critically high 0.70-1.30 [facility] Comment on above: Performed By: #### C MP, CMADM #### [facility] [address] [address] [address] Mirza Sadler EGFR-AF SENE[place]ESE 45 mL/min/1.73m2 Critically low >=60 [facility] Comment on above: Performed By: #### C MP, CMADM #### [facility] [address] [address] [address] Mirza Sadler EGFR-NON AF [place]ESE 37 mL/min/1.73m2 Critically low >=60 [facility] Comment on above: Performed By: #### C MP, CMADM #### [facility] [address] [address] [address] Mirza Sadler Glucose [Mass/Vol] 161 mg/dL Critically high 74-106 T [facility] Comment on above: Performed By: #### C TANIA, CMADM #### [facility] [address] [address] [address] Mirza Sadler Potassium [Moles/Vol] 4.1 mmol/L Normal 3.5-5.1 [facility] Comment on above: Performed By: #### C MP, CMADM #### [facility] [address] [address] [address] Mirza Sadler Sodium [Moles/Vol] 139 mmol/L Normal 136-145 [facility] Comment on above: Performed By: #### C MP, CMADM #### [facility] [address] [address] [address] Mirza Sadler Urea nitrogen [Mass/Vol] 28.0 mg/dL Critically high 7.0-18.0 [facility] Comment on above: Performed By: #### C MP, CMADM #### [facility] [address] [address] [address] Mirza Sadler Urea nitrogen/Creatinine [Mass ratio] 15.5 mg/mg Normal [facility] Comment on above: Performed By: #### C MP, CMADM #### [facility] [address] [place] [address] Dr. Mirza Sadler TROPONIN, HIGH SENSITIVITYon 03-12-2022 HSTROP 15735.5 pg/mL Critically high 4.0-76.1 [facility] Comment on above: Result Comment: CUT- OFF POINTS HAVE BEEN ESTABLISHED BASED ON THE FOURTH UNIVERSAL DEFINITIONS OF MYOCARDIAL INFARCTION. THE UPPER REFERENCE LIMIT (URL) OF TROPONIN, DEFINED THE 99TH PERCENTILE OF cTnI DISTRIBUTION IN A REFERENCE POPULATION, HAS BEEN CONFIRMED THE DECISION THRESHOLD FOR ID DIAGNOSIS. Performed By: #### C TANIA, CMADM #### [facility] [address] [place] [address] Dr. Mirza Sadler BNPon 03-11-2022 Natriuretic peptide B (Bld) [Mass/Vol] 1378.0 pg/mL Critically high <=900.0 [facility] Comment on above: Performed By: #### P T, PTT #### [facility] [address] [place] [address] Dr. Mirza Sadler CARDIAC PARUL 3-6on 2 CK [Catalytic activity/Vol] 139 U/L Normal 39-308 [facility] Comment on above: Performed By: #### E RUR #### [facility] [address] [place] [address] Dr. Mirza Sadler CK.MB [Mass/Vol] 7.50 ng/mL Critically high <=3.60 [facility] Comment on above: Performed By: #### E RUR #### [facility] [address] [place] [address] Dr. Mirza Sadler HSTROP 1419.3 pg/mL Critically high 4.0-76.1 [facility] Comment on above: Result Comment: CUT- OFF POINTS HAVE BEEN ESTABLISHED BASED ON THE FOURTH UNIVERSAL DEFINITIONS OF MYOCARDIAL INFARCTION. THE UPPER REFERENCE LIMIT (URL) OF TROPONIN, DEFINED THE 99TH PERCENTILE OF cTnI DISTRIBUTION IN A REFERENCE POPULATION, HAS BEEN CONFIRMED THE DECISION THRESHOLD FOR ID DIAGNOSIS. Performed By: #### E RUR #### [facility] [address] [place] [address] Dr. Mirza Sadler CBC AUTO DIFFon 03-11-2022 BASO # 0.1 103/ul Normal 0.0-0.1 [facility] Comment on above: Performed By: #### E RUR #### [facility] [address] [place] [address] Dr. Mirza Sadler Basophils/100 WBC (Bld) 0.5 % Normal 0.2-2.0 [facility] Comment on above: Performed By: #### E RUR #### [facility] [address] [place] [address] Dr. Mirza Sadler EO # 0.2 103/ul Normal 0.0-0.7 [facility] Comment on above: Performed By: #### E RUR #### [facility] [address] [place] [address] Dr. Mirza Sadler Eosinophils/100 WBC (Bld) 1.3 % Normal 0.9-7.0 [facility] Comment on above: Performed By: #### E RUR #### [facility] [address] [place] [address] Dr. Mirza Sadler Erythrocyte distribution width (RBC) [Ratio] 14.6 % Normal 11.0-15.0 [facility] Comment on above: Performed By: #### E RUR #### [facility] [address] [place] [address] Dr. Mirza Sadler Hematocrit (Bld) [Volume fraction] 43.1 % Normal 42.0-54.0 [facility] Comment on above: Performed By: #### E RUR #### [facility] [address] [place] [address] Dr. Mirza Sadler Hemoglobin (Bld) [Mass/Vol] 14.2 g/dL Normal 14.0-18.0 [facility] Comment on above: Performed By: #### E RUR #### [facility] [address] [place] [address] Dr. Mirza Sadler IG # 0.07 10e3/ul Critically high 0.00-0.03 [facility] Comment on above: Performed By: #### E RUR #### [facility] [address] [place] [address] Dr. Mirza Sadler IG % 0.5 % Normal 0.0-0.5 [facility] Comment on above: Performed By: #### E RUR #### [facility] [address] [place] [address] Dr. Mirza Sadler LYMPH # 1.3 103/ul Normal 1.2-3.8 [facility] Comment on above: Performed By: #### E RUR #### [facility] [address] [place] [address] Dr. Mirza Sadler Lymphocytes/100 WBC (Bld) 8.6 % Critically low 20.5-60.0 [facility] Comment on above: Performed By: #### E RUR #### [facility] [address] [place] [address] Dr. Mirza Sadler MANUAL DIFF REQ NO Normal [facility] Comment on above: Performed By: #### E RUR #### [facility] [address] [place] [address] Dr. Mirza Sadler MCH (RBC) [Entitic mass] 29.3 pg Normal 25.9-34.0 [facility] Comment on above: Performed By: #### E RUR #### [facility] [address] [place] [address] Dr. Mirza Sadler MCHC (RBC) [Mass/Vol] 32.9 g/dL Normal 29.9-35.2 [facility] Comment on above: Performed By: #### E RUR #### [facility] [address] [place] [address] Dr. Mirza Sadler MCV (RBC) [Entitic vol] 88.9 fL Normal 80.0-94.0 [facility] Comment on above: Performed By: #### E RUR #### [facility] [address] [place] [address] Dr. Mirza Sadler MONO # 0.7 103/ul Normal 0.3-0.8 [facility] Comment on above: Performed By: #### E RUR #### [facility] [address] [place], [place] [id number] Dr. Mirza Sadler Monocytes/100 WBC (Bld) 4.3 % Normal 1.7-12.0 [facility] Comment on above: Performed By: #### E RUR #### [facility] [address] [place] [address] Dr. Mirza Sadler NEUT # 12.8 103/ul Critically high 1.4-6.5 [facility] Comment on above: Performed By: #### E RUR #### [facility] [address] [place] [address] Dr. Mirza Sadler Neutrophils/100 WBC (Bld) 84.8 % Critically high 43.0-75.0 [facility] Comment on above: Performed By: #### E RUR #### [facility] [address] [place] [address] Dr. Mirza Sadler Platelet mean volume (Bld) [Entitic vol] 9.9 fL Normal 9.5-13.5 [facility] Comment on above: Performed By: #### E RUR #### [facility] [address] [place] [address] Dr. Mirza Sadler PLT 201 103/ul Normal 150-450 [facility] Comment on above: Performed By: #### E RUR #### [facility] [address] [place] [address] Dr. Mirza Sadler RBC 4.85 106/ul Normal 4.70-6.10 [facility] Comment on above: Performed By: #### E RUR #### [facility] [address] [place] [address] Dr. Mirza Sadler WBC 15.0 103/ul Critically high 4.0-11.0 [facility] Comment on above: Performed By: #### E RUR #### [facility] [address] [place] [address] Dr. Mirza Sadler CULTURE BLOODon 03-11-2022 Microscopic examination of blood, culture Culture Observations: NO GROWTH AT 5 DAYS. Normal [facility] Comment on above: Performed By: #### H STROPN #### [facility] [address] [place] [address] Dr. Mirza Sadler Microscopic examination of blood, culture Culture Observations: NO GROWTH AT 5 DAYS. Normal [facility] Comment on above: Performed By: #### H STROPN #### [facility] [address] [place] [address] Dr. Mirza Sadler Covid-19 PCR ([facility])on 03-01 SARS-CoV-2 (COVID-19) RNA RAMO+probe Ql (Unsp spec) Not detected Normal NOT DETECTED [facility] Comment on above: Result Comment: When diagnostic [...] for this test is supported by the [place] of [employer] and Human Service's declaration that [...] used). Performed By: #### H STROPN #### [facility] [address] [place] [address] Dr. Mirza Sadler ER URINE PROFILEon 2 Bilirubin Ql (U) Negative Normal NEGATIVE [facility] Comment on above: Performed By: #### E RUR #### [facility] [address] [place] [address] Dr. Mirza Sadler Clarity (U) CLEAR Normal CLEAR [facility] Comment on above: Performed By: #### E RUR #### [facility] [address] [place] [address] Dr. Mirza Sadler Color (U) LT. YELLOW Normal YELLOW [facility] Comment on above: Performed By: #### E RUR #### [facility] [address] [place] [address] Dr. Mirza BUSTILLO A micrscopic examina tion will be performed if indicated. Normal [facility] Comment on above: Performed By: #### E RUR #### [facility] [address] [place] [address] Dr. Mirza Sadler Glucose Ql (U) >1000 Abnormal NEGATIVE [facility] Comment on above: Performed By: #### E RUR #### [facility] [address] [place] [address] Dr. Mirza Sadler Hemoglobin Ql (U) Negative Normal NEGATIVE [facility] Comment on above: Performed By: #### E RUR #### [facility] [address] [place] [address] Dr. Mirza Sadler Ketones Ql (U) 15 mg/dl Abnormal NEGATIVE [facility] Comment on above: Performed By: #### E RUR #### [facility] [address] [place] [address] Dr. Mirza Sadler LEUKOCYTES Negative Normal NEGATIVE [facility] Comment on above: Performed By: #### E RUR #### [facility] [address] [place] [address] Dr. Mirza Sadler Nitrite Ql (U) Negative Normal NEGATIVE [facility] Comment on above: Performed By: #### E RUR #### [facility] [address] [place] [address] Dr. Mirza Sadler pH (U) 5.0 [pH] Normal 5-9 [facility] Comment on above: Performed By: #### E RUR #### [facility] [address] [place] [address] Dr. Mirza Sadler SPEC GRAVITY 1.020 Normal 1.005-<=1. 025 [facility] Comment on above: Performed By: #### E RUR #### [facility] [address] [place] [address] Dr. Mirza Sadler UA PROTEIN TRACE Normal NEGATIVE/ TRACE [facility] Comment on above: Performed By: #### E RUR #### [facility] [address] [place] [address] Dr. Mirza Sadler UR MICRO IND NOT INDICATED Normal [facility] Comment on above: Performed By: #### E RUR #### [facility] [address] [address] [address] Mirza Sadler Urobilinogen Qn (U) 0.2 {Luisito'U}/dL Normal 0.2 - 1. 0 [facility] Comment on above: Performed By: #### E RUR #### [facility] [address] [address] [address] Mirza Sadler POINT OF CARE GLUCOSEon 03-01 Glucose [Mass/Vol] 161 mg/dL Critically high 74-106 [facility] Comment on above: Performed By: #### P T, PTT #### [facility] [address] [place] [address] Dr. Mirza Sadler PROF 14(COMP METB)on 022 Albumin [Mass/Vol] 4.3 g/dL Normal 3.4-5.0 [facility] Comment on above: Performed By: #### P T, PTT #### [facility] [address] [address] [address] Mirza Sadler Albumin/Globulin [Mass ratio] 1.1 {ratio} Normal [facility] Comment on above: Performed By: #### P T, PTT #### [facility] [address] [place] [address] Dr. Mirza Sadler ALP [Catalytic activity/Vol] 156 U/L Critically high 46-116 [facility] Comment on above: Performed By: #### P T, PTT #### [facility] [address] [address] [address] Mirza Sadler ALT [Catalytic activity/Vol] 24 U/L Normal 16-63 [facility] Comment on above: Performed By: #### P T, PTT #### [facility] [address] [address] [address] Mirza Sadler Anion gap [Moles/Vol] 16.7 mmol/L Normal [facility] Comment on above: Performed By: #### P T, PTT #### [facility] [address] [address] [address] Mirza Sadler AST [Catalytic activity/Vol] 21 U/L Normal 15-37 [facility] Comment on above: Performed By: #### P T, PTT #### [facility] [address] [address] [address] Mirza Sadler Bilirubin [Mass/Vol] 1.1 mg/dL Critically high 0.2-1.0 [facility] Comment on above: Performed By: #### P T, PTT #### [facility] [address] [address] [address] Mirza Sadler Calcium [Mass/Vol] 8.8 mg/dL Normal 8.5-10.1 [facility] Comment on above: Performed By: #### P T, PTT #### [facility] [address] [place] [address] Dr. Mirza Sadler Chloride [Moles/Vol] 105 mmol/L Normal 98-107 [facility] Comment on above: Performed By: #### P T, PTT #### [facility] [address] [address] [address] Mirza Sadler CO2 [Moles/Vol] 25.0 mmol/L Normal 21.0-32.0 [facility] Comment on above: Performed By: #### P T, PTT #### [facility] [address] [address] [address] Mirza Sadler Creatinine [Mass/Vol] 1.57 mg/dL Critically high 0.70-1.30 [facility] Comment on above: Performed By: #### P T, PTT #### [facility] [address] [address] [address] Mirza Sadler EGFR-AF [place] 53 mL/min/1.73m2 Critically low >=60 [facility] Comment on above: Performed By: #### P T, PTT #### [facility] [address] [place] [address] Dr. Mirza Sadler EGFR-NON AF [place] 44 mL/min/1.73m2 Critically low >=60 [facility] Comment on above: Performed By: #### P T, PTT #### [facility] [address] [place] [address] Dr. Mirza Sadler Globulin (S) [Mass/Vol] 3.9 g/dL Normal [facility] Comment on above: Performed By: #### P T, PTT #### [facility] [address] [address] [address] Mirza Sadler Glucose [Mass/Vol] 188 mg/dL Critically high 74-106 [facility] Comment on above: Performed By: #### P T, PTT #### [facility] [address] [address] [address] Mirza Sadler Potassium [Moles/Vol] 3.7 mmol/L Normal 3.5-5.1 [facility] Comment on above: Performed By: #### P T, PTT #### [facility] [address] [place] [address] Dr. Mirza Sadler Protein [Mass/Vol] 8.2 g/dL Normal 6.4-8.2 [facility] Comment on above: Performed By: #### P T, PTT #### [facility] [address] [address] [address] Mirza Sadler Sodium [Moles/Vol] 143 mmol/L Normal 136-145 [facility] Comment on above: Performed By: #### P T, PTT #### [facility] [address] [address] [address] Mirza Sadler Urea nitrogen [Mass/Vol] 20.0 mg/dL Critically high 7.0-18.0 [facility] Comment on above: Performed By: #### P T, PTT #### [facility] [address] [address] [address] Mirza Sadler Urea nitrogen/Creatinine [Mass ratio] 12.7 mg/mg Normal [facility] Comment on above: Performed By: #### P T, PTT #### [facility] [address] [address] [address] Mirza Sadler RESPIRATORY PANEL PLUSon Adenovirus Not detected Normal NOT DETECTED [facility] Comment on above: Performed By: #### P T, PTT #### [facility] [address] [place] [address] Dr. Mirza Ball Parapertusis Not detected Normal NOT DETECTED [facility] Comment on above: Performed By: #### P T, PTT #### [facility] [address] [place] [address] Dr. Mirza Ball Pertussis Not detected Normal NOT DETECTED [facility] Comment on above: Performed By: #### P T, PTT #### [facility] [address] [place] [address] Dr. Mirza Sadler Chlamydia Pneumoniae Not detected Normal NOT DETECTED [facility] Comment on above: Performed By: #### P T, PTT #### [facility] [address] [place] [address] Dr. Mirza Sadler Coronavirus 229E Not detected Normal NOT DETECTED [facility] Comment on above: Performed By: #### P T, PTT #### [facility] [address] [place] [address] Dr. Mirza Sadler Coronavirus HKU1 Not detected Normal NOT DETECTED [facility] Comment on above: Performed By: #### P T, PTT #### [facility] [address] [place] [address] Dr. Mirza Sadler Coronavirus NL63 Not detected Normal NOT DETECTED [facility] Comment on above: Performed By: #### P T, PTT #### [facility] [address] [place] [address] Dr. Mirza Sadler Coronavirus OC43 Not detected Normal NOT DETECTED [facility] Comment on above: Performed By: #### P T, PTT #### [facility] [address] [place] [address] Dr. Mirza Sadler Influenza A H1 2009 Not detected Normal NOT DETECTED [facility] Comment on above: Performed By: #### P T, PTT #### [facility] [address] [place] [address] Dr. Mirza Sadler Influenza A H3 Not detected Normal NOT DETECTED [facility] Comment on above: Performed By: #### P T, PTT #### [facility] [address] [place] [address] Dr. Mirza Sadler Influenza B Not detected Normal NOT DETECTED [facility] Comment on above: Performed By: #### P T, PTT #### [facility] [address] [place] [address] Dr. Mirza Sadler Metapneumovirus Not detected Normal NOT DETECTED [facility] Comment on above: Performed By: #### P T, PTT #### [facility] [address] [place] [address] Dr. Mirza Sadler Mycoplas. Pneumoniae Not detected Normal NOT DETECTED [facility] Comment on above: Performed By: #### P T, PTT #### [facility] [address] [place] [address] Dr. Mirza Sadler Parainfluenza 1 Not detected Normal NOT DETECTED [facility] Comment on above: Performed By: #### P T, PTT #### [facility] [address] [place] [address] Dr. Mirza Sadler Parainfluenza 2 Not detected Normal NOT DETECTED [facility] Comment on above: Performed By: #### P T, PTT #### [facility] [address] [place] [address] Dr. Mirza Sadler Parainfluenza 3 Not detected Normal NOT DETECTED [facility] Comment on above: Performed By: #### P T, PTT #### [facility] [address] [place] [address] Dr. Mirza Sadler Parainfluenza 4 Not detected Normal NOT DETECTED [facility] Comment on above: Performed By: #### P T, PTT #### [facility] [address] [place] [address] Dr. Mirza Sadler Rhino/Enterovirus Not detected Normal NOT DETECTED [facility] Comment on above: Performed By: #### P T, PTT #### [facility] [address] [place] [address] Dr. Mirza Sadler RP2 Header 1 RESPIRATORY PANEL: VIRUSES Normal [facility] Comment on above: Performed By: #### P T, PTT #### [facility] [address] [place] [address] Dr. Mirza Sadler RP2 Header 2 RESPIRATORY PANEL: BACTERIA Normal [facility] Comment on above: Performed By: #### P T, PTT #### [facility] [address] [place] [address] Dr. Mirza Sadler RSV Not detected Normal NOT DETECTED [facility] Comment on above: Performed By: #### P T, PTT #### [facility] [address] [place] [address] Dr. Mirza Sadler SARS-CoV-2 (COVID-19) RNA RAMO+probe Ql (Unsp spec) Not detected Normal NOT DETECTED [facility] Comment on above: Performed By: #### P T, PTT #### [facility] [address] [place] [address] Dr. Mirza Sadler TROPONIN, HIGH SENSITIVITYon 03-11-2022 HSTROP 82352.8 pg/mL Critically high 4.0-76.1 [facility] Comment on above: Result Comment: CUT- OFF POINTS HAVE BEEN ESTABLISHED BASED ON THE FOURTH UNIVERSAL DEFINITIONS OF MYOCARDIAL INFARCTION. THE UPPER REFERENCE LIMIT (URL) OF TROPONIN, DEFINED THE 99TH PERCENTILE OF cTnI DISTRIBUTION IN A REFERENCE POPULATION, HAS BEEN CONFIRMED THE DECISION THRESHOLD FOR ID DIAGNOSIS. Performed By: #### C MP, CMADM #### [facility] [address] [place] [address] Dr. Mirza Sadler HSTROP 41.0 pg/mL Normal 4.0-76.1 [facility] Comment on above: Result Comment: CUT- OFF POINTS HAVE BEEN ESTABLISHED BASED ON THE FOURTH UNIVERSAL DEFINITIONS OF MYOCARDIAL INFARCTION. THE UPPER REFERENCE LIMIT (URL) OF TROPONIN, DEFINED THE 99TH PERCENTILE OF cTnI DISTRIBUTION IN A REFERENCE POPULATION, HAS BEEN CONFIRMED THE DECISION THRESHOLD FOR ID DIAGNOSIS. Performed By: #### P T, PTT #### [facility] [address] [place] [address] Dr. Mirza Sadler XR CHEST 1 Von [...] by: Kayden ACEVES Date: 2022-03-11 05:42 Normal [facility] NM MUGAon 03-09-2022 NM MUGA [...] by: SHANNON LANDIS Date: 2022-03-09 12:26 Normal [facility] CT CHEST WO CONon 03-02-2022 [...] HIGINIO FLANAGAN Date: 2022-03-02 08:52 Normal [facility] Creatinine and Glomerular fi ltration rate.predicted panel (S/P/Bld)Ordered By: Gagan Shahid on 01-17-2022 Creatinine [Mass/Vol] 1.53 mg/dL 0.64-1.27 [facility] Estimated glomerular filtrat ion rate (GFR) non- AmericanOrdered By: Gagan Shahid on 01-17-2022 GFR/1.73 sq M.predicted among non-blacks MDRD (S/P/Bld) [Vol rate/Area] 45 mL/Min [facility] Glucose Glucometer (BldC) [M ass/Vol]Ordered By: Gagan Shahid on 01-17-2022 Glucose [Mass/Vol] 178 mg/dL [facility] Comment on above: Random Glucose Refer ence Range is dependent on time and content of last meal. Glucose of more than 200 mg/dL in a nonstressed, ambulatory subject supports the diagnosis of Diabetes Mellitus. No Panel InformationOrdered By: Gagan Shahid on 01-17-2022 Estimated GFR () 55 mL/Min [facility] Comment on above: GFR estimated refere nce range: According to KDOQI guidelines, <60 ml/min/1.73m2 is sufficient to diagnose a patient with chronic kidney disease. Pharmacy Creatinine Clearance (Chem 42.00 [facility] Serum or plasma anion gap de terminationOrdered By: Gagan Shahid on 01-17-2022 Anion gap [Moles/Vol] 12.0 mmol/L 6.0-15.0 [facility] Serum or plasma calcium radha urement (mass/volume)Ordered By: Gagan Shahid on 01-17-2022 Calcium [Mass/Vol] 9.0 mg/dL 8.2-10.2 [facility] Serum or plasma chloride shanae surement (moles/volume)Ordered By: Gagan Shahid on 01-17-2022 Chloride [Moles/Vol] 107 mmol/L 95-114 [facility] Serum or plasma glucose radha urement (mass/volume)Ordered By: Gagan Shahdi on 01-17-2022 Glucose [Mass/Vol] 142 mg/dL 70-100 [facility] Comment on above: ADA recommended refe rence rangeRandom Glucose Reference Range is dependent on time and content of last meal. Glucose of more than 200 mg/dL in a nonstressed, ambulatory subject supports the diagnosis of Diabetes Mellitus. Serum or plasma potassium me asurement (moles/volume)Ordered By: Gagan Shahid on 01-17-2022 Potassium [Moles/Vol] 3.5 mmol/L 3.5-5.1 [facility] Serum or plasma sodium measu rement (moles/volume)Ordered By: Gagan Shahid on 01-17-2022 Sodium [Moles/Vol] 137 mmol/L 136-146 [facility] Serum or plasma total carbon dioxide measurement (moles/volume)Ordered By: Gagan Shahid on 01-17-2022 CO2 [Moles/Vol] 21.5 mmol/L 22.0-30.0 [facility] Serum or plasma urea nitroge n measurement (mass/volume)Ordered By: Gagan Shahid on 01-17-2022 Urea nitrogen [Mass/Vol] 24 mg/dL 9-23 [facility] Activated partial thrombopla stin time (aPTT) in platelet poor plasma by coagulation aOrdered By: Gagan Shahid on 01-16-2022 aPTT Coag (PPP) [Time] 42.1 s 25.1-36.5 [facility] Basophils Auto (Bld) [#/Vol] Ordered By: Gagan Shahid on 01-16-2022 Basophils (Bld) [#/Vol] 0.0 10*3/uL 0.0-0.2 [facility] Basophils/100 WBC Auto (Bld) Ordered By: Gagan Shahid on 01-16-2022 Basophils/100 WBC (Bld) 0.5 % . [facility] Creatine kinase [Enzymatic a ctivity/volume] in Serum or PlasmaOrdered By: Gagan Shahid on 01-16-2022 CK [Catalytic activity/Vol] 92 U/L 22-269 [facility] Eosinophils Auto (Bld) [#/Vo l]Ordered By: Gagan Shahid on 01-16-2022 Eosinophils (Bld) [#/Vol] 0.2 10*3/uL 0.0-0.45 [facility] Eosinophils/100 WBC Auto (Bl d)Ordered By: Gagan Shahid on 01-16-2022 Eosinophils/100 WBC (Bld) 2.4 % . [facility] Erythrocyte distribution wid th Auto (RBC) [Ratio]Ordered By: Gagan Shahid on 01-16-2022 Erythrocyte distribution width (RBC) [Ratio] 14.6 % 12.0-14.8 [facility] Hematocrit Auto (Bld) [Volum e fraction]Ordered By: Gagan Shahid on 01-16-2022 Hematocrit (Bld) [Volume fraction] 43.4 % 38.8-50.0 [facility] Hemoglobin [Mass/volume] in BloodOrdered By: Gagan Shahid on 01-16-2022 Hemoglobin (Bld) [Mass/Vol] 14.4 g/dL 13.0-17.0 [facility] - Chemistry and C hemistry - challengeOrdered By: Gagan Shahid on 01-16-2022 Magnesium [Mass/Vol] 1.9 mg/dL 1.6-2.6 [facility] - CoagulationOrde red By: Gagan Shahid on 01-16-2022 PT Coag (PPP) [Time] 15.7 s 9.0-12.9 [facility] - Hematology and Cell countsOrdered By: Gagan Shahid on 01-16-2022 Nucleated RBC/100 WBC (Bld) [Ratio] 0.1 % 0-0.5 [facility] Leukocytes [#/volume] in Blo od by Automated countOrdered By: Gagan Shahid on 01-16-2022 WBC (Bld) [#/Vol] 8.2 10*3/uL 4.5-11.0 [facility] Lymphocytes Auto (Bld) [#/Vo l]Ordered By: Gagan Shahid on 01-16-2022 Lymphocytes (Bld) [#/Vol] 1.6 10*3/uL 1.00-4.8 [facility] Lymphocytes/100 WBC Auto (Bl d)Ordered By: Gagan Shahid on 01-16-2022 Lymphocytes/100 WBC (Bld) 19.5 % . [facility] MCH Auto (RBC) [Entitic mass ]Ordered By: Gagan Shahid on 01-16-2022 MCH (RBC) [Entitic mass] 29.4 pg 27.5-35.2 [facility] MCHC Auto (RBC) [Mass/Vol]Or dered By: Gagan Shahid on 01-16-2022 MCHC (RBC) [Mass/Vol] 33.2 g/dL 32.5-35.6 [facility] MCV Auto (RBC) [Entitic vol] Ordered By: Gagan Shahid on 01-16-2022 MCV (RBC) [Entitic vol] 88.5 fL 83.5-101 [facility] Monocytes Auto (Bld) [#/Vol] Ordered By: Gagan Shahid on 01-16-2022 Monocytes (Bld) [#/Vol] 0.8 10*3/uL 0.0-0.8 [facility] Monocytes/100 WBC Auto (Bld) Ordered By: Gagan Shahid on 01-16-2022 Monocytes/100 WBC (Bld) 9.1 % . [facility] Neutrophils Auto (Bld) [#/Vo l]Ordered By: Gagan Shahid on 01-16-2022 Neutrophils (Bld) [#/Vol] 5.6 10*3/uL 1.8-7.7 [facility] Neutrophils/100 WBC Auto (Bl d)Ordered By: Gagan Shahid on 01-16-2022 Neutrophils/100 WBC (Bld) 68.5 % . [facility] No Panel InformationOrdered By: Gagan Shahid on 01-16-2022 Bedside Glucose Comment Glu2: cleaned meter [facility] Platelet mean volume Auto (B ld) [Entitic vol]Ordered By: Gagan Shahid on 01-16-2022 Platelet mean volume (Bld) [Entitic vol] 8.4 fL 6.6-10.1 [facility] Platelet poor plasma interna tional normalized ratio (INR) by coagulation assay (relatOrdered By: Gagan Shahid on 01-16-2022 INR Coag (PPP) [Relative time] 1.4 {INR} [facility] Comment on above: INR Therapeutic Rang e [...] 01-16-2022 Platelets (Bld) [#/Vol] 178 10*3/uL 150-450 [facility] RBC Auto (Bld) [#/Vol]Ordere d By: Gagan Shahid on 01-16-2022 RBC (Bld) [#/Vol] 4.90 10*6/uL 3.90-5.60 [facility] Serum or plasma creatine kin ase MB (CKMB)/total creatine kinase (CK) ratio by calculaOrdered By: Gagan Shahid on 01-16-2022 CK.MB Calc [Catalytic fraction] 3.2 % 0.00-2.50 [facility] Serum or plasma creatine kin ase MB measurement (mass/volume)Ordered By: Gagan Shahid on 01-16-2022 CK.MB [Mass/Vol] 3.0 ng/mL 0.6-6.3 [facility] Troponin I.cardiac [Mass/vol ume] in Serum or Plasma by High sensitivity methodOrdered By: Gagan Shahid on 01-16-2022 Troponin I.cardiac High sensitivity method [Mass/Vol] 525 pg/mL 0-20 [facility] Comment on above: Critical valueresult calledat 1844 on 01/16/22 BNPon 01-15-2022 Natriuretic peptide B (Bld) [Mass/Vol] 1012.0 pg/mL Critically high <=900.0 [facility] Comment on above: Performed By: #### B WET MILLING WHEEL OPERATOR #### [facility] [address] [place] [address] Dr. Mirza Sadler CARDIAC PARUL ADMITon 022 CK [Catalytic activity/Vol] 93 U/L Normal 39-308 [facility] Comment on above: Performed By: #### C TANIA, CMADM #### [facility] [address] [place] [address] Dr. Mirza Sadler CK.MB [Mass/Vol] 1.67 ng/mL Normal <=3.60 [facility] Comment on above: Performed By: #### C TANIA, CMADM #### [facility] [address] [place] [address] Dr. Mirza Sadler HSTROP 17.1 pg/mL Normal 4.0-76.1 [facility] Comment on above: Result Comment: CUT- OFF POINTS HAVE BEEN ESTABLISHED BASED ON THE FOURTH UNIVERSAL DEFINITIONS OF MYOCARDIAL INFARCTION. THE UPPER REFERENCE LIMIT (URL) OF TROPONIN, DEFINED THE 99TH PERCENTILE OF cTnI DISTRIBUTION IN A REFERENCE POPULATION, HAS BEEN CONFIRMED THE DECISION THRESHOLD FOR ID DIAGNOSIS. Performed By: #### C TANIA, CMADM #### [facility] [address] [place] [address] Dr. Mirza Sadler RACHEL 63 ng/mL Normal 16-96 [facility] Comment on above: Performed By: #### C TANIA, CMADM #### [facility] [address] [place] [address] Dr. Mirza Sadler CBC AUTO DIFFon 01-15-2022 BASO # 0.1 103/ul Normal 0.0-0.1 [facility] Comment on above: Performed By: #### E RUR #### [facility] [address] [place] [address] Dr. Mirza Sadler Basophils/100 WBC (Bld) 0.9 % Normal 0.2-2.0 [facility] Comment on above: Performed By: #### E RUR #### [facility] [address] [place] [address] Dr. Mirza Sadler EO # 0.3 103/ul Normal 0.0-0.7 [facility] Comment on above: Performed By: #### E RUR #### [facility] [address] [place] [address] Dr. Mirza Sadler Eosinophils/100 WBC (Bld) 3.1 % Normal 0.9-7.0 [facility] Comment on above: Performed By: #### E RUR #### [facility] [address] [place] [address] Dr. Mirza Sadler Erythrocyte distribution width (RBC) [Ratio] 14.2 % Normal 11.0-15.0 [facility] Comment on above: Performed By: #### E RUR #### [facility] [address] [place] [address] Dr. Mirza Sadler Hematocrit (Bld) [Volume fraction] 44.4 % Normal 42.0-54.0 [facility] Comment on above: Performed By: #### E RUR #### [facility] [address] [place] [address] Dr. Mirza Sadler Hemoglobin (Bld) [Mass/Vol] 14.4 g/dL Normal 14.0-18.0 [facility] Comment on above: Performed By: #### E RUR #### [facility] [address] [place] [address] Dr. Mirza Sadler IG # 0.03 10e3/ul Normal 0.00-0.03 [facility] Comment on above: Performed By: #### E RUR #### [facility] [address] [place] [address] Dr. Mirza Sadler IG % 0.3 % Normal 0.0-0.5 [facility] Comment on above: Performed By: #### E RUR #### [facility] [address] [place] [address] Dr. Mirza Sadler LYMPH # 1.6 103/ul Normal 1.2-3.8 [facility] Comment on above: Performed By: #### E RUR #### [facility] [address] [address] [address] Mirza Sadler Lymphocytes/100 WBC (Bld) 16.8 % Critically low 20.5-60.0 [facility] Comment on above: Performed By: #### E RUR #### [facility] [address] [place] [address] Dr. Mirza Sadler MANUAL DIFF REQ NO Normal [facility] Comment on above: Performed By: #### E RUR #### [facility] [address] [place] [address] Dr. Mirza Sadler MCH (RBC) [Entitic mass] 29.4 pg Normal 25.9-34.0 [facility] Comment on above: Performed By: #### E RUR #### [facility] [address] [place] [address] Dr. Mirza Sadler MCHC (RBC) [Mass/Vol] 32.4 g/dL Normal 29.9-35.2 [facility] Comment on above: Performed By: #### E RUR #### [facility] [address] [place] [address] Dr. Mirza Sadler MCV (RBC) [Entitic vol] 90.6 fL Normal 80.0-94.0 [facility] Comment on above: Performed By: #### E RUR #### [facility] [address] [place] [address] Dr. Mirza Sadler MONO # 0.5 103/ul Normal 0.3-0.8 [facility] Comment on above: Performed By: #### E RUR #### [facility] [address] [place] [address] Dr. Mirza Sadler Monocytes/100 WBC (Bld) 5.9 % Normal 1.7-12.0 [facility] Comment on above: Performed By: #### E RUR #### [facility] [address] [place] [address] Dr. iMrza Sadler NEUT # 6.7 103/ul Critically high 1.4-6.5 [facility] Comment on above: Performed By: #### E RUR #### [facility] [address] [address] [address] Mirza Sadler Neutrophils/100 WBC (Bld) 73.0 % Normal 43.0-75.0 [facility] Comment on above: Performed By: #### E RUR #### [facility] [address] [address] [address] Mirza Sadler Platelet mean volume (Bld) [Entitic vol] 10.0 fL Normal 9.5-13.5 [facility] Comment on above: Performed By: #### E RUR #### [facility] [address] [address] [address] Mirza Sadler PLT 190 103/ul Normal 150-450 [facility] Comment on above: Performed By: #### E RUR #### [facility] [address] [place] [address] Dr. Mirza Sadler RBC 4.90 106/ul Normal 4.70-6.10 [facility] Comment on above: Performed By: #### E RUR #### [facility] [address] [place] [address] Dr. Mirza Sadler WBC 9.2 103/ul Normal 4.0-11.0 [facility] Comment on above: Performed By: #### E RUR #### [facility] [address] [place] [address] CHEST WO CONon [...] HIGINIO FLANAGAN Date: 2022-01-15 08:19 Normal [facility] CULTURE BLOODon 01-15-2022 Microscopic examination of blood, culture Culture Observations: NO GROWTH AT 5 DAYS. Normal [facility] Comment on above: Performed By: #### H STROPN #### [facility] [address] [place] [address] Dr. Mirza Sadler Microscopic examination of blood, culture Culture Observations: NO GROWTH AT 5 DAYS. Normal [facility] Comment on above: Performed By: #### B [id number] #### [facility] [address] [place] [address] Dr. Mirza Sadler Covid-19 PCR (CVDTB)on 12-30 SARS-CoV-2 (COVID-19) RNA RAMO+probe Ql (Unsp spec) Not detected Normal NOT DETECTED [facility] Comment on above: Result Comment: When diagnostic [...] for this test is supported by the [place] of [employer] and Human Service's declaration that [...] longer be used). Performed By: #### B WET MILLING WHEEL OPERATOR #### [facility] [address] [place] [address] Dr. Mirza Sadler ER URINE PROFILEon 2 Bilirubin Ql (U) Negative Normal NEGATIVE [facility] Comment on above: Performed By: #### C TANIA, CMADM #### [facility] [address] [place] [address] Dr. Mirza Sadler Clarity (U) CLEAR Normal CLEAR [facility] Comment on above: Performed By: #### C TANIA, CMADM #### [facility] [address] [place] [address] Dr. Mirza Sadler Color (U) LT. YELLOW Normal YELLOW [facility] Comment on above: Performed By: #### C TANIA, CMADM #### [facility] [address] [place] [address] Dr. Mirza Sadler ERUAHD A micrscopic examina tion will be performed if indicated. Normal [facility] Comment on above: Performed By: #### C TANIA, CMADM #### [facility] [address] [place] [address] Dr. Mirza Sadler Glucose Ql (U) >1000 Abnormal NEGATIVE [facility] Comment on above: Performed By: #### C TANIA, CMADM #### [facility] [address] [place] [address] Dr. Mirza Sadler Hemoglobin Ql (U) Negative Normal NEGATIVE [facility] Comment on above: Performed By: #### C TANIA, CMADM #### [facility] [address] [place] [address] Dr. Mirza Sadler Ketones Ql (U) TRACE Abnormal NEGATIVE [facility] Comment on above: Performed By: #### C TANIA, CMADM #### [facility] [address] [place] [address] Dr. Mirza Sadler LEUKOCYTES Negative Normal NEGATIVE [facility] Comment on above: Performed By: #### C TANIA, CMADM #### [facility] [address] [place] [address] Dr. Mirza Sadler Nitrite Ql (U) Negative Normal NEGATIVE [facility] Comment on above: Performed By: #### C TANIA, CMADM #### [facility] [address] [place] [address] Dr. Mirza Sadler pH (U) 5.5 [pH] Normal 5-9 [facility] Comment on above: Performed By: #### C TANIA, CMADM #### [facility] [address] [place] [address] Dr. Mirza Sadler SPEC GRAVITY 1.020 Normal 1.005-<=1. 025 [facility] Comment on above: Performed By: #### C TANIA, CMADM #### [facility] [address] [place] [address] Dr. Mirza Sadler UA PROTEIN TRACE Normal NEGATIVE/ TRACE [facility] Comment on above: Performed By: #### C TANIA, CMADM #### [facility] [address] [place] [address] Dr. Mirza Sadler UR MICRO IND NOT INDICATED Normal [facility] Comment on above: Performed By: #### C TANIA, CMADM #### [facility] [address] [place] [address] Dr. Mirza Sadler Urobilinogen Qn (U) 0.2 {Luisito'U}/dL Normal 0.2 - 1. 0 [facility] Comment on above: Performed By: #### C TANIA, CMADM #### [facility] [address] [place] [address] Dr. Mriza Sadler LACTATE/LACTIC ACIDon 2021 Lactate [Moles/Vol] 0.8 mmol/L Normal 0.4-1.9 [facility] Comment on above: Performed By: #### P T, PTT #### [facility] [address] [address] [address] Mirza Sadler PROF 14(COMP METB)on 022 Albumin [Mass/Vol] 4.4 g/dL Normal 3.4-5.0 [facility] Comment on above: Performed By: #### C MP, CMADM #### [facility] [address] [place] [address] Dr. Mirza Sadler Albumin/Globulin [Mass ratio] 1.3 {ratio} Normal [facility] Comment on above: Performed By: #### C MP, CMADM #### [facility] [address] [place] [address] Dr. Miraz Sadler ALP [Catalytic activity/Vol] 155 U/L Critically high 46-116 [facility] Comment on above: Performed By: #### C MP, CMADM #### [facility] [address] [place] [address] Dr. Mirza Sadler ALT [Catalytic activity/Vol] 27 U/L Normal 16-63 [facility] Comment on above: Performed By: #### C MP, CMADM #### [facility] [address] [place] [address] Dr. Mirza Sadler Anion gap [Moles/Vol] 14.9 mmol/L Normal [facility] Comment on above: Performed By: #### C MP, CMADM #### [facility] [address] [address] [address] Mirza Sadler AST [Catalytic activity/Vol] 22 U/L Normal 15-37 [facility] Comment on above: Performed By: #### C MP, CMADM #### [facility] [address] [address] [address] Mirza Sadler Bilirubin [Mass/Vol] 0.8 mg/dL Normal 0.2-1.0 [facility] Comment on above: Performed By: #### C MP, CMADM #### [facility] [address] [address] [address] Mirza Sadler Calcium [Mass/Vol] 8.8 mg/dL Normal 8.5-10.1 [facility] Comment on above: Performed By: #### C TANIA, CMADM #### [facility] [address] [place] [address] Dr. Mirza Sadler Chloride [Moles/Vol] 106 mmol/L Normal 98-107 [facility] Comment on above: Performed By: #### C TANIA, CMADM #### [facility] [address] [place] [address] Dr. Mirza Sadler CO2 [Moles/Vol] 23.9 mmol/L Normal 21.0-32.0 [facility] Comment on above: Performed By: #### C TANIA, CMADM #### [facility] [address] [place] [address] Dr. Mirza Sadler Creatinine [Mass/Vol] 1.51 mg/dL Critically high 0.70-1.30 [facility] Comment on above: Performed By: #### C TANIA, CMADM #### [facility] [address] [place] [address] Dr. Mirza Sadler EGFR-AF SENEGALESE 56 mL/min/1.73m2 Critically low >=60 [facility] Comment on above: Performed By: #### C TANIA, CMADM #### [facility] [address] [place] [address] Dr. Mirza Sadler EGFR-NON AF SENEGALESE 46 mL/min/1.73m2 Critically low >=60 [facility] Comment on above: Performed By: #### C TANIA, CMADM #### [facility] [address] [place] [address] Dr. Mirza Sadler Globulin (S) [Mass/Vol] 3.4 g/dL Normal [facility] Comment on above: Performed By: #### C TANIA, CMADM #### [facility] [address] [place] [address] Dr. Mirza Sadler Glucose [Mass/Vol] 189 mg/dL Critically high 74-106 [facility] Comment on above: Performed By: #### C TANIA, CMADM #### [facility] [address] [place] [address] Dr. Mirza Sadler Potassium [Moles/Vol] 3.8 mmol/L Normal 3.5-5.1 [facility] Comment on above: Performed By: #### C TANIA, CMADM #### [facility] [address] [place] [address] Dr. Mirza Sadler Protein [Mass/Vol] 7.8 g/dL Normal 6.4-8.2 [facility] Comment on above: Performed By: #### C TANIA, CMADM #### [facility] [address] [place] [address] Dr. Mirza Sadler Sodium [Moles/Vol] 141 mmol/L Normal 136-145 [facility] Comment on above: Performed By: #### C TANIA, CMADM #### [facility] [address] [place] [address] Dr. Mirza Sadler Urea nitrogen [Mass/Vol] 22.0 mg/dL Critically high 7.0-18.0 [facility] Comment on above: Performed By: #### C TANIA, CMADM #### [facility] [address] [place] [address] Dr. Mirza Sadler Urea nitrogen/Creatinine [Mass ratio] 14.6 mg/mg Normal [facility] Comment on above: Performed By: #### C TANIA, CMADM #### [facility] [address] [place] [address] Dr. Mirza Sadler PROTIMEon 01-15-2022 INR Coag (PPP) [Relative time] 1.10 {INR} Normal [facility] Comment on above: Performed By: #### E RUR #### [facility] [address] [place] [address] Dr. Mirza Sadler INR GUIDELINES SEE BELOW Normal [facility] Comment on above: Result Comment: RIVKA RED INR: 2.0 - 3.0 CONDITIONS NOT LISTED BELOW 2.5 - 3.5 FOR PROSTHETIC HEART VALVE REPLACEMENT 2.5 - 3.5 RECURRENT THROMBOSIS Performed By: #### E RUR #### [facility] [address] [place] [address] Dr. Mirza Sadler PT Coag (PPP) [Time] 11.8 s Critically high 9.0-11.6 [facility] Comment on above: Performed By: #### E RUR #### [facility] [id number] Mirza Sadler PTTon 01-15-2022 aPTT Coag (Bld) [Time] 29.0 s Normal 22.3-36.2 [facility] Comment on above: Performed By: #### E RUR #### [facility] [address] [address] [address] Mirza Sadler TROPONIN, HIGH SENSITIVITYon 01-15-2022 HSTROP 1786.2 pg/mL Critically high 4.0-76.1 [facility] Comment on above: Result Comment: CUT- OFF POINTS HAVE BEEN ESTABLISHED BASED ON THE FOURTH UNIVERSAL DEFINITIONS OF MYOCARDIAL INFARCTION. THE UPPER REFERENCE LIMIT (URL) OF TROPONIN, DEFINED THE 99TH PERCENTILE OF cTnI DISTRIBUTION IN A REFERENCE POPULATION, HAS BEEN CONFIRMED THE DECISION THRESHOLD FOR ID DIAGNOSIS. Performed By: #### H STROPN #### [facility] [address] [place] [address] Dr. Mirza Sadler HSTROP 669.3 pg/mL Critically high 4.0-76.1 [facility] Comment on above: Result Comment: CUT- OFF POINTS HAVE BEEN ESTABLISHED BASED ON THE FOURTH UNIVERSAL DEFINITIONS OF MYOCARDIAL INFARCTION. THE UPPER REFERENCE LIMIT (URL) OF TROPONIN, DEFINED THE 99TH PERCENTILE OF cTnI DISTRIBUTION IN A REFERENCE POPULATION, HAS BEEN CONFIRMED THE DECISION THRESHOLD FOR ID DIAGNOSIS. Performed By: #### H STROPN #### [facility] [address] [place] [address] Dr. Mirza Sadler XR CHEST 1 Von [...] WAYNE CASEY Date: 2022-01-15 06:42 Normal [facility] A1C HEMOGLOBINon 12-18-2021 HbA1c (Bld) [Mass fraction] 6.2 % [employer] Other Glucose - FINGER STICKon Glucose [Mass/Vol] 120 mg/dL [employer] Other HbA1c (Bld) [Mass fraction]o n 12-18-2021 A1C HEMOGLOBIN [place] [employer] Other XR CHEST 2 Von 12-08-2021 XR [...] HIGINIO FLANAGAN Date: 2021-12-08 16:07 Normal [facility] PTH INTACTon 12-01-2021 PTH, Intact 15 pg/mL Normal 15-65 [facility] Comment on above: Performed By: #### C , [facility] #### [facility] [address] [address] [address] Mirza Sadler VIT D 25-OH LABCORPon 2021 Vitamin D, 25-Hydroxy 41.2 ng/mL Normal 30.0-100.0 [facility] Comment on above: Result Comment: [place] min D deficiency has been defined by the [place] [employer] and an Endocrine Society practice guideline as a level of serum 25-OH vitamin D less than 20 ng/mL (1,2). The Endocrine Society went on to further define vitamin D insufficiency as a level between 21 and 29 ng/mL (2). 1. IOM ([place] [employer]). 2010. Dietary reference intakes for calcium and D. [place]: The National Academies Press. 2. Noemy MF, Sonam PAUL, Jkae HERMOSILLO, et al. Evaluation, treatment, and prevention of vitamin D deficiency: an Endocrine Society clinical practice guideline. JCEM. 2010; 96(7):1911-30. Performed By: #### P T, PTT #### [facility] [address] [place] [address] Dr. Mirza Sadler HEMOGRAM AND PLATELon 2021 Hematocrit (Bld) [Volume fraction] 39.9 % Critically low 42.0-54.0 [facility] Comment on above: Performed By: #### P T, PTT #### [facility] [address] [place] [address] Dr. Mirza Sadler Hemoglobin (Bld) [Mass/Vol] 13.1 g/dL Critically low 14.0-18.0 [facility] Comment on above: Performed By: #### P T, PTT #### [facility] [address] [place] [address] Dr. Mirza Sadler MCH (RBC) [Entitic mass] 29.5 pg Normal 25.9-34.0 [facility] Comment on above: Performed By: #### P T, PTT #### [facility] [address] [place] [address] Dr. Mirza Sadler MCHC (RBC) [Mass/Vol] 32.8 g/dL Normal 29.9-35.2 [facility] Comment on above: Performed By: #### P T, PTT #### [facility] [address] [place] [address] Dr. Mirza Sadler MCV (RBC) [Entitic vol] 89.9 fL Normal 80.0-94.0 [facility] Comment on above: Performed By: #### P T, PTT #### [facility] [address] [place] [address] Dr. Mirza Sadler PLT 182 103/ul Normal 150-450 [facility] Comment on above: Performed By: #### P T, PTT #### [facility] [address] [place] [address] Dr. Mirza Sadler RBC 4.44 106/ul Critically low 4.70-6.10 [facility] Comment on above: Performed By: #### P T, PTT #### [facility] [address] [place] [address] Dr. Mirza Sadler WBC 6.9 103/ul Normal 4.0-11.0 [facility] Comment on above: Performed By: #### P T, PTT #### [facility] [address] [place] [address] Dr. Mirza Sadler MAGNESIUMon 11-30-2021 Magnesium [Mass/Vol] 1.8 mg/dL Normal 1.8-2.4 [facility] Comment on above: Performed By: #### P T, PTT #### [facility] [address] [place] [address] Dr. Mirza Sadler RENAL FUNCTION PANELon 11-30 Albumin [Mass/Vol] 3.9 g/dL Normal 3.4-5.0 [facility] Comment on above: Performed By: #### P T, PTT #### [facility] [address] [place] [address] Dr. Mirza Sadler Calcium [Mass/Vol] 9.0 mg/dL Normal 8.5-10.1 [facility] Comment on above: Performed By: #### P T, PTT #### [facility] [address] [place] [address] Dr. Mirza Sadler Chloride [Moles/Vol] 107 mmol/L Normal 98-107 [facility] Comment on above: Performed By: #### P T, PTT #### [facility] [address] [place] [address] Dr. Mirza Sadler CO2 [Moles/Vol] 26.2 mmol/L Normal 21.0-32.0 [facility] Comment on above: Performed By: #### P T, PTT #### [facility] [address] [place] [address] Dr. Mirza Sadler Creatinine [Mass/Vol] 1.55 mg/dL Critically high 0.70-1.30 [facility] Comment on above: Performed By: #### P T, PTT #### [facility] [address] [address] [address] Mirza Sadler EGFR-AF S[place] 54 mL/min/1.73m2 Critically low >=60 [facility] Comment on above: Performed By: #### P T, PTT #### [facility] [address] [address] [address] Mirza Sadler EGFR-NON AF [place]ESE 45 mL/min/1.73m2 Critically low >=60 [facility] Comment on above: Performed By: #### P T, PTT #### [facility] [address] [place] [address] Dr. Mirza Sadler Glucose [Mass/Vol] 166 mg/dL Critically high 74-106 [facility] Comment on above: Performed By: #### P T, PTT #### [facility] [address] [address] [address] Mirza Sadler Phosphate [Mass/Vol] 3.7 mg/dL Normal 2.6-4.7 [facility] Comment on above: Performed By: #### P T, PTT #### [facility] [address] [place] [address] Dr. Mirza Sadler Potassium [Moles/Vol] 4.2 mmol/L Normal 3.5-5.1 [facility] Comment on above: Performed By: #### P T, PTT #### [facility] [address] [address] [address] Mirza Sadler Sodium [Moles/Vol] 142 mmol/L Normal 136-145 [facility] Comment on above: Performed By: #### P T, PTT #### [facility] [address] [address] [address] Mirza Sadler Urea nitrogen [Mass/Vol] 16.0 mg/dL Normal 7.0-18.0 [facility] Comment on above: Performed By: #### P T, PTT #### [facility] [address] [place] [address] Dr. Mirza Sadler UA RANDOM W/MICROSCOPICon BACTERIA NONE SEEN Normal NONE SEEN [facility] Comment on above: Performed By: #### B LDCX2 #### [facility] [address] [place] [address] Dr. Mirza Sadler Bilirubin Ql (U) Negative Normal NEGATIVE [facility] Comment on above: Performed By: #### B LDCX2 #### [facility] [address] [place] [address] Dr. Mirza Sadler CAST NONE SEEN Normal NONE SEEN [facility] Comment on above: Performed By: #### B LDCX2 #### [facility] [address] [place] [address] Dr. Mirza Sadler Clarity (U) CLEAR Normal CLEAR [facility] Comment on above: Performed By: #### B LDCX2 #### [facility] [address] [place] [address] Dr. Mirza Sadler Color (U) LT. YELLOW Normal YELLOW [facility] Comment on above: Performed By: #### B LDCX2 #### [facility] [address] [place] [address] Dr. Mirza Sadler Crystals LM Nom (Urine sed) NONE SEEN Normal NONE SEEN [facility] Comment on above: Performed By: #### B LDCX2 #### [facility] [address] [place] [address] Dr. Mirza Sadler Epithelial cells LM Ql (Urine sed) RARE Normal NONE SEEN /RARE [facility] Comment on above: Performed By: #### B LDCX2 #### [facility] [address] [place] [address] Dr. Mirza Sadler Glucose Ql (U) >1000 Abnormal NEGATIVE [facility] Comment on above: Performed By: #### B LDCX2 #### [facility] [address] [place] [address] Dr. Mirza Sadler Hemoglobin Ql (U) Negative Normal NEGATIVE [facility] Comment on above: Performed By: #### B LDCX2 #### [facility] [address] [place] [address] Dr. Mirza Sadler Ketones Ql (U) Negative Normal NEGATIVE [facility] Comment on above: Performed By: #### B LDCX2 #### [facility] [address] [place] [address] Dr. Mirza Sadler LEUKOCYTES Negative Normal NEGATIVE [facility] Comment on above: Performed By: #### B LDCX2 #### [facility] [address] [place] [address] Dr. Mirza Sadler MUCOUS NONE SEEN Normal NONE SEEN [facility] Comment on above: Performed By: #### B LDCX2 #### [facility] [address] [place] [address] Dr. Mirza Sadler Nitrite Ql (U) Negative Normal NEGATIVE [facility] Comment on above: Performed By: #### B LDCX2 #### [facility] [address] [place] [address] Dr. Mirza Sadler pH (U) 5.5 [pH] Normal 5-9 [facility] Comment on above: Performed By: #### B LDCX2 #### [facility] [address] [place] [address] Dr. Mirza Sadler RBC NONE SEEN Abnormal 0-2 [facility] Comment on above: Performed By: #### B LDCX2 #### [facility] [address] [place] [address] Dr. Mirza Sadler SPEC GRAVITY 1.015 Normal 1.005-<=1. 025 [facility] Comment on above: Performed By: #### B LDCX2 #### [facility] [address] [place] [address] Dr. Mirza Sadler UA PROTEIN Negative Normal NEGATIVE/ TRACE [facility] Comment on above: Performed By: #### B LDCX2 #### [facility] [address] [place] [address] Dr. Mirza Sadler Urobilinogen Qn (U) 0.2 {Luisito'U}/dL Normal 0.2 - 1. 0 [facility] Comment on above: Performed By: #### B LDCX2 #### [facility] [address] [place] [address] Dr. Mirza Sadler WBC NONE SEEN Normal NONE SEEN [facility] Comment on above: Performed By: #### B LDCX2 #### [facility] [address] [address] [address] Mirza Sadler URINE T PROTEIN CREAT RATIOo n 11-30-2021 Protein (U) [Mass/Vol] 22.4 mg/dL Critically high <=12.0 [facility] Comment on above: Performed By: #### U RTPCR #### [facility] [address] [address] [address] Mirza Sadler UR PROT CREAT RAT 0.31 Normal [facility] Comment on above: Performed By: #### U RTPCR #### [facility] [address] [address] [address] Mirza Sadler URINE CREAT 73.05 mg/dL Normal 20.00-300. 00 [facility] Comment on above: Performed By: #### U RTPCR #### [facility] [address] [address] [address] Mirza Sadler NM HEPATOBILIARY SCAN W [...] HIGINIO FLANAGAN Date: 2021-11-24 11:55 Normal [facility] BNPon 10-27-2021 Natriuretic peptide B (Bld) [Mass/Vol] 574.0 pg/mL Normal <=900.0 [facility] Comment on above: Performed By: #### P T, PTT #### [facility] [address] [place] [address] Dr. Mirza Sadler CARDIAC PARUL ADMITon 022 CK [Catalytic activity/Vol] 70 U/L Normal 39-308 [facility] Comment on above: Performed By: #### P T, PTT #### [facility] [address] [place] [address] Dr. Mirza Sadler CK.MB [Mass/Vol] 1.10 ng/mL Normal <=3.60 [facility] Comment on above: Performed By: #### P T, PTT #### [facility] [address] [place] [address] Dr. Mirza Sadler HSTROP 22.3 pg/mL Normal 4.0-76.1 [facility] Comment on above: Result Comment: CUT- OFF POINTS HAVE BEEN ESTABLISHED BASED ON THE FOURTH UNIVERSAL DEFINITIONS OF MYOCARDIAL INFARCTION. THE UPPER REFERENCE LIMIT (URL) OF TROPONIN, DEFINED THE 99TH PERCENTILE OF cTnI DISTRIBUTION IN A REFERENCE POPULATION, HAS BEEN CONFIRMED THE DECISION THRESHOLD FOR ID DIAGNOSIS. Performed By: #### P T, PTT #### [facility] [address] [place] [address] Dr. Mirza Sadler RACHEL 81 ng/mL Normal 16-96 [facility] Comment on above: Performed By: #### P T, PTT #### [facility] [address] [place] [address] Dr. Mirza Sadler CBC AUTO DIFFon 10-27-2021 BASO # 0.1 103/ul Normal 0.0-0.1 [facility] Comment on above: Performed By: #### E RUR #### [facility] [address] [place] [address] Dr. Mirza Sadler Basophils/100 WBC (Bld) 0.4 % Normal 0.2-2.0 [facility] Comment on above: Performed By: #### E RUR #### [facility] [address] [place] [address] Dr. Mirza Sadler EO # 0.1 103/ul Normal 0.0-0.7 [facility] Comment on above: Performed By: #### E RUR #### [facility] [address] [place] [address] Dr. Mirza Sadler Eosinophils/100 WBC (Bld) 0.4 % Critically low 0.9-7.0 [facility] Comment on above: Performed By: #### E RUR #### [facility] [address] [place] [address] Dr. Mirza Sadler Erythrocyte distribution width (RBC) [Ratio] 14.1 % Normal 11.0-15.0 [facility] Comment on above: Performed By: #### E RUR #### [facility] [address] [place] [address] Dr. Mirza Sadler Hematocrit (Bld) [Volume fraction] 41.0 % Critically low 42.0-54.0 [facility] Comment on above: Performed By: #### E RUR #### [facility] [address] [place] [address] Dr. Mirza Sadler Hemoglobin (Bld) [Mass/Vol] 14.1 g/dL Normal 14.0-18.0 [facility] Comment on above: Performed By: #### E RUR #### [facility] [address] [place] [address] Dr. Mirza Sadler IG # 0.05 10e3/ul Critically high 0.00-0.03 [facility] Comment on above: Performed By: #### E RUR #### [facility] [address] [place] [address] Dr. Mirza Sadler IG % 0.4 % Normal 0.0-0.5 [facility] Comment on above: Performed By: #### E RUR #### [facility] [address] [place] [address] Dr. Mirza Sadler LYMPH # 0.9 103/ul Critically low 1.2-3.8 [facility] Comment on above: Performed By: #### E RUR #### [facility] [address] [place], [place] [id number] Dr. Mirza Sadler Lymphocytes/100 WBC (Bld) 6.6 % Critically low 20.5-60.0 [facility] Comment on above: Performed By: #### E RUR #### [facility] [address] [place] [address] Dr. Mirza Sadler MANUAL DIFF REQ NO Normal [facility] Comment on above: Performed By: #### E RUR #### [facility] [address] [place] [address] Dr. Mirza Sadler MCH (RBC) [Entitic mass] 29.7 pg Normal 25.9-34.0 [facility] Comment on above: Performed By: #### E RUR #### [facility] [address] [place] [address] Dr. Mirza Sadler MCHC (RBC) [Mass/Vol] 34.4 g/dL Normal 29.9-35.2 [facility] Comment on above: Performed By: #### E RUR #### [facility] [address] [place] [address] Dr. Mirza Sadler MCV (RBC) [Entitic vol] 86.3 fL Normal 80.0-94.0 [facility] Comment on above: Performed By: #### E RUR #### [facility] [address] [place] [address] Dr. Mirza Sadler MONO # 0.4 103/ul Normal 0.3-0.8 [facility] Comment on above: Performed By: #### E RUR #### [facility] [address] [place] [address] Dr. Mirza Sadler Monocytes/100 WBC (Bld) 2.6 % Normal 1.7-12.0 [facility] Comment on above: Performed By: #### E RUR #### [facility] [address] [place] [address] Dr. Mirza Sadler NEUT # 12.2 103/ul Critically high 1.4-6.5 The [facility] Comment on above: Performed By: #### E RUR #### [facility] [address] [place] [address] Dr. Mirza Sadler Neutrophils/100 WBC (Bld) 89.6 % Critically high 43.0-75.0 [facility] Comment on above: Performed By: #### E RUR #### [facility] [address] [place] [address] Dr. Mirza Sadler Platelet mean volume (Bld) [Entitic vol] 9.7 fL Normal 9.5-13.5 [facility] Comment on above: Performed By: #### E RUR #### [facility] [address] [place] [address] Dr. Mirza Sadler PLT 183 103/ul Normal 150-450 [facility] Comment on above: Performed By: #### E RUR #### [facility] [address] [place] [address] Dr. Mirza Sadler RBC 4.75 106/ul Normal 4.70-6.10 [facility] Comment on above: Performed By: #### E RUR #### [facility] [address] [place] [address] Dr. Mirza Sadler WBC 13.7 103/ul Critically high 4.0-11.0 [facility] Comment on above: Performed By: #### E RUR #### [facility] [address] [place] [address] Dr. Mirza Sadler CULTURE BLOODon 10-27-2021 Microscopic examination of blood, culture Culture Observations: NO GROWTH AT 5 DAYS. Normal [facility] Comment on above: Performed By: #### B LDCX2 #### [facility] [address] [place] [address] Dr. Mirza Sadler Performed By: #### H STROPN #### [facility] [address] [place] [address] Dr. Mirza Sadler Covid-19 PCR ([facility])on 09-30 SARS-CoV-2 (COVID-19) RNA RAMO+probe Ql (Unsp spec) Not detected Normal NOT DETECTED [facility] Comment on above: Result Comment: When diagnostic [...] for this test is supported by the [place] of Health and Human Service's declaration that [...] Performed By: #### P T, PTT #### [facility] [address] [place] [address] Dr. Mirza Sadler ER URINE PROFILEon 2 Bilirubin Ql (U) Negative Normal NEGATIVE [facility] Comment on above: Performed By: #### H STROPN #### [facility] [address] [place] [address] Dr. Mirza Sadler Clarity (U) CLEAR Normal CLEAR [facility] Comment on above: Performed By: #### H STROPN #### [facility] [address] [place] [address] Dr. Mirza Sadler Color (U) YELLOW Normal YELLOW [facility] Comment on above: Performed By: #### H STROPN #### [facility] [address] [place] [address] Dr. Mirza Sadler ERUAHD A micrscopic examina tion will be performed if indicated. Normal [facility] Comment on above: Performed By: #### H STROPN #### [facility] [address] [place] [address] Dr. Mirza Sadler Glucose Ql (U) >1000 Abnormal NEGATIVE [facility] Comment on above: Performed By: #### H STROPN #### [facility] [address] [place] [address] Dr. Mirza Sadler Hemoglobin Ql (U) Negative Normal NEGATIVE [facility] Comment on above: Performed By: #### H STROPN #### [facility] [address] [place] [address] Dr. Mirza Sadler Ketones Ql (U) TRACE Abnormal NEGATIVE [facility] Comment on above: Performed By: #### H STROPN #### [facility] [address] [place] [address] Dr. Mirza Sadler LEUKOCYTES Negative Normal NEGATIVE [facility] Comment on above: Performed By: #### H STROPN #### [facility] [address] [place] [address] Dr. Mirza Sadler Nitrite Ql (U) Negative Normal NEGATIVE [facility] Comment on above: Performed By: #### H STROPN #### [facility] [address] [place] [address] Dr. Mirza Sadler pH (U) 5.5 [pH] Normal 5-9 [facility] Comment on above: Performed By: #### H STROPN #### [facility] [address] [place] [address] Dr. Mirza Sadler SPEC GRAVITY 1.010 Normal 1.005-<=1. 025 [facility] Comment on above: Performed By: #### H STROPN #### [facility] [address] [place] [address] Dr. Mirza Sadler UA PROTEIN Negative Normal NEGATIVE/ TRACE [facility] Comment on above: Performed By: #### H STROPN #### [facility] [address] [place] [address] Dr. Mirza Sadler UR MICRO IND NOT INDICATED Normal [facility] Comment on above: Performed By: #### H STROPN #### [facility] [address] [place] [address] Dr. Mirza Sadler Urobilinogen Qn (U) 0.2 {Luisito'U}/dL Normal 0.2 - 1. 0 [facility] Comment on above: Performed By: #### H STROPN #### [facility] [address] [place] [address] Dr. Mirza Sadler INFLUENZA A AND B AGon 10-27 INFLUANEGH SEE BELOW Normal [facility] Comment on above: Result Comment: Nega tive for Flu A protein angiten. Infection due to Flu A cannot be ruled out. Flu A angiten in the sample may be below the detection limit of the test. Performed By: #### B WET MILLING WHEEL OPERATOR #### [facility] [address] [place] [address] Dr. [facility] Normal [facility] Comment on above: Result Comment: Nega tive for Flu B protein antigen. Infection due to Flu B cannot be ruled out. Flu B antigen in the sample may be below the detection limit of the test. Performed By: #### B WET MILLING WHEEL OPERATOR #### [facility] [address] [place] [address] Dr. Mirza Sadler INFLUENZA A AG Negative Normal NEGATIVE SEE COMMENT [facility] Comment on above: Performed By: #### B WET MILLING WHEEL OPERATOR #### [facility] [address] [place] [address] Dr. Mirza Sadler INFLUENZA B AG Negative Normal NEGATIVE SEE COMMENT [facility] Comment on above: Performed By: #### B WET MILLING WHEEL OPERATOR #### [facility] [address] [place] [address] Dr. Mirza Sadler INTERNAL CONTROLS Within Normal Limits Normal Wi thin Normal Limits [facility] Comment on above: Performed By: #### B WET MILLING WHEEL OPERATOR #### [facility] [address] [place] [address] Dr. Mirza Sadler LACTATE/LACTIC ACIDon 2021 Lactate [Moles/Vol] 1.8 mmol/L Normal 0.4-1.9 [facility] Comment on above: Performed By: #### C MP, CMADM #### [facility] [address] [place] [address] Dr. Mirza Sadler LIPASEon 10-27-2021 Lipase [Catalytic activity/Vol] 87.0 U/L Normal 73.0-393.0 [facility] Comment on above: Performed By: #### P T, PTT #### [facility] [address] [place] [address] Dr. Mirza Sadler PH VENOUS BLOODon 10-27-2021 PCO2 VENOUS 37.6 mmHg Critically low 40.0-52.0 [facility] Comment on above: Performed By: #### P T, PTT #### [facility] [address] [place] [address] Dr. Mirza Sadler pH VENOUS 7.422 Normal 7.330-7.43 0 [facility] Comment on above: Performed By: #### P T, PTT #### [facility] [address] [place] [address] Dr. Mirza Sadler PROF 14(COMP METB)on 022 Albumin [Mass/Vol] 4.2 g/dL Normal 3.4-5.0 [facility] Comment on above: Performed By: #### P T, PTT #### [facility] [address] [place] [address] Dr. Mirza Sadler Albumin/Globulin [Mass ratio] 1.3 {ratio} Normal [facility] Comment on above: Performed By: #### P T, PTT #### [facility] [address] [place] [address] Dr. Mirza Sadler ALP [Catalytic activity/Vol] 121 U/L Critically high 46-116 [facility] Comment on above: Performed By: #### P T, PTT #### [facility] [address] [place] [address] Dr. Mirza Sadler ALT [Catalytic activity/Vol] 22 U/L Normal 16-63 [facility] Comment on above: Performed By: #### P T, PTT #### [facility] [address] [place] [address] Dr. Mirza Sadler Anion gap [Moles/Vol] 16.0 mmol/L Normal [facility] Comment on above: Performed By: #### P T, PTT #### [facility] [address] [place] [address] Dr. Mirza Sadler AST [Catalytic activity/Vol] 18 U/L Normal 15-37 [facility] Comment on above: Performed By: #### P T, PTT #### [facility] [address] [place] [address] Dr. Mirza Sadler Bilirubin [Mass/Vol] 1.3 mg/dL Critically high 0.2-1.0 [facility] Comment on above: Performed By: #### P T, PTT #### [facility] [address] [place] [address] Dr. Mirza Sadler Calcium [Mass/Vol] 8.9 mg/dL Normal 8.5-10.1 [facility] Comment on above: Performed By: #### P T, PTT #### [facility] [address] [place] [address] Dr. Mirza Sadler Chloride [Moles/Vol] 105 mmol/L Normal 98-107 [facility] Comment on above: Performed By: #### P T, PTT #### [facility] [address] [place] [address] Dr. Mirza Sadler CO2 [Moles/Vol] 23.7 mmol/L Normal 21.0-32.0 [facility] Comment on above: Performed By: #### P T, PTT #### [facility] [address] [place] [address] Dr. Mirza Sadler Creatinine [Mass/Vol] 1.79 mg/dL Critically high 0.70-1.30 [facility] Comment on above: Performed By: #### P T, PTT #### [facility] [address] [place] [address] Dr. Mirza Sadler EGFR-AF SENEGALESE 46 mL/min/1.73m2 Critically low >=60 [facility] Comment on above: Performed By: #### P T, PTT #### [facility] [address] [place] [address] Dr. Mirza Sadler EGFR-NON AF SENE[place]ESE 38 mL/min/1.73m2 Critically low >=60 [facility] Comment on above: Performed By: #### P T, PTT #### [facility] [address] [place] [address] Dr. Mirza Sadler Globulin (S) [Mass/Vol] 3.3 g/dL Normal [facility] Comment on above: Performed By: #### P T, PTT #### [facility] [address] [place] [address] Dr. Mirza Sadler Glucose [Mass/Vol] 195 mg/dL Critically high 74-106 [facility] Comment on above: Performed By: #### P T, PTT #### [facility] [address] [address] [address] Mirza Sadler Potassium [Moles/Vol] 3.7 mmol/L Normal 3.5-5.1 [facility] Comment on above: Performed By: #### P T, PTT #### [facility] [address] [address] [address] Mirza Sadler Protein [Mass/Vol] 7.5 g/dL Normal 6.4-8.2 [facility] Comment on above: Performed By: #### P T, PTT #### [facility] [address] [address] [address] Mirza Sadler Sodium [Moles/Vol] 141 mmol/L Normal 136-145 [facility] Comment on above: Performed By: #### P T, PTT #### [facility] [address] [address] [address] Mirza Sadler Urea nitrogen [Mass/Vol] 25.0 mg/dL Critically high 7.0-18.0 [facility] Comment on above: Performed By: #### P T, PTT #### [facility] [address] [place] [address] Dr. Mirza Sadler Urea nitrogen/Creatinine [Mass ratio] 14.0 mg/mg Normal [facility] Comment on above: Performed By: #### P T, PTT #### [facility] [address] [place] [address] Dr. Mirza Sadler PROTIMEon 10-27-2021 INR Coag (PPP) [Relative time] 1.07 {INR} Normal [facility] Comment on above: Performed By: #### P T, PTT #### [facility] [address] [place] [address] Dr. Mirza Sadler INR GUIDELINES SEE BELOW Normal [facility] Comment on above: Result Comment: RIVKA RED INR: 2.0 - 3.0 CONDITIONS NOT LISTED BELOW 2.5 - 3.5 FOR PROSTHETIC HEART VALVE REPLACEMENT 2.5 - 3.5 RECURRENT THROMBOSIS Performed By: #### P T, PTT #### [facility] [address] [address] [address] Mirza Sadler PT Coag (PPP) [Time] 11.5 s Normal 9.0-11.6 [facility] Comment on above: Performed By: #### P T, PTT #### [facility] [address] [id number] Mirza Sadler PTTon 10-27-2021 aPTT Coag (Bld) [Time] 25.1 s Normal 22.3-36.2 [facility] Comment on above: Performed By: #### P T, PTT #### [facility] [address] [address] [address] Mirza Sadler XR CHEST 1 Von [...] by: GAGAN CAREY Date: 2021-10-27 10:21 Normal [facility] LANI LIZAMA ([id number]) 1950 M Date Time Provider Department 10/20/21 [...] Fully Assessed Reason for Visit: Lab Orders [8708] Primary Visit Diagnosis:Monoclonal gammopathy [D47.2] Order(s):CBC + DIFF [SQCBCDIF] Order #: [id number] FUTURE Prescriptions as of 10/24/2021 - famotidine [...] Status:Closed by VEE DAY on 10/24/21 Normal [facility] CT ABD/PELVIS WO CONon 10-03 [...] by: HIGINIO FLANAGAN Date: 2021-10-03 16:29 Normal [facility] PROF 14(COMP METB)on 022 Albumin [Mass/Vol] 4.1 g/dL Normal 3.4-5.0 [facility] Comment on above: Performed By: #### P T, PTT #### [facility] [address] [address] [address] Mirza Sadler Albumin/Globulin [Mass ratio] 1.2 {ratio} Normal [facility] Comment on above: Performed By: #### P T, PTT #### [facility] [address] [address] [address] Mirza Sadler ALP [Catalytic activity/Vol] 132 U/L Critically high 46-116 [facility] Comment on above: Performed By: #### P T, PTT #### [facility] [address] [address] [address] Mirza Sadler ALT [Catalytic activity/Vol] 30 U/L Normal 16-63 [facility] Comment on above: Performed By: #### P T, PTT #### [facility] [address] [place] [address] Dr. Mirza Sadler Anion gap [Moles/Vol] 10.7 mmol/L Normal [facility] Comment on above: Performed By: #### P T, PTT #### [facility] [address] [place] [address] Dr. Mirza Sadler AST [Catalytic activity/Vol] 21 U/L Normal 15-37 [facility] Comment on above: Performed By: #### P T, PTT #### [facility] [address] [address] [address] Mirza Sadler Bilirubin [Mass/Vol] 0.7 mg/dL Normal 0.2-1.0 [facility] Comment on above: Performed By: #### P T, PTT #### [facility] [address] [address] [address] Mirza Sadler Calcium [Mass/Vol] 9.0 mg/dL Normal 8.5-10.1 [facility] Comment on above: Performed By: #### P T, PTT #### [facility] [address] [address] [address] Mirza Sadler Chloride [Moles/Vol] 106 mmol/L Normal 98-107 [facility] Comment on above: Performed By: #### P T, PTT #### [facility] [address] [address] [address] Mirza Sadler CO2 [Moles/Vol] 27.5 mmol/L Normal 21.0-32.0 [facility] Comment on above: Performed By: #### P T, PTT #### [facility] [address] [address] [address] Mirza Sadler Creatinine [Mass/Vol] 1.77 mg/dL Critically high 0.70-1.30 [facility] Comment on above: Performed By: #### P T, PTT #### [facility] [address] [address] [address] Mirza Sadler EGFR-AF SENEGALESE 46 mL/min/1.73m2 Critically low >=60 [facility] Comment on above: Performed By: #### P T, PTT #### [facility] [address] [address] [address] Mirza Sadler EGFR-NON AF [place]ENE[place]ESE 38 mL/min/1.73m2 Critically low >=60 [facility] Comment on above: Performed By: #### P T, PTT #### [facility] [address] [address] [address] Mirza Sadler Globulin (S) [Mass/Vol] 3.5 g/dL Normal [facility] Comment on above: Performed By: #### P T, PTT #### [facility] [address] [address] [address] Mirza Sadler Glucose [Mass/Vol] 135 mg/dL Critically high 74-106 [facility] Comment on above: Performed By: #### P T, PTT #### [facility] [address] [address] [address] Mirza Sadler Potassium [Moles/Vol] 4.2 mmol/L Normal 3.5-5.1 [facility] Comment on above: Performed By: #### P T, PTT #### [facility] [address] [address] [address] Mirza Sadler Protein [Mass/Vol] 7.6 g/dL Normal 6.4-8.2 [facility] Comment on above: Performed By: #### P T, PTT #### [facility] [address] [address] [address] Mirza Sadler Sodium [Moles/Vol] 140 mmol/L Normal 136-145 [facility] Comment on above: Performed By: #### P T, PTT #### [facility] [address] [address] [address] Mirza Sadler Urea nitrogen [Mass/Vol] 17.0 mg/dL Normal 7.0-18.0 [facility] Comment on above: Performed By: #### P T, PTT #### [facility] [address] [address] [address] Mirza Sadler Urea nitrogen/Creatinine [Mass ratio] 9.6 mg/mg Normal [facility] Comment on above: Performed By: #### P T, PTT #### [facility] [address] [address] [address] Mirza Sadler US SINGLE QUAD RT [...] by: HIGINIO FLANAGAN Date: 2021-08-27 08:40 Normal [facility] A1C HEMOGLOBINon 07-17-2021 HbA1c (Bld) [Mass fraction] 6.9 % [employer] Other Glucose - FINGER STICKon Glucose [Mass/Vol] 180 mg/dL [employer] Other HbA1c (Bld) [Mass fraction]o n 07-17-2021 A1C HEMOGLOBIN [employer] Other A1C with Estimated Average G luon 04-10-2021 HbA1c (Bld) [Mass fraction] 6.4 % [employer] Other HbA1c (Bld) [Mass fraction] 243 % [employer] Other Glucoseon 04-10-2021 Glucose [Mass/Vol] 243 mg/dL [employer] Other A1C HEMOGLOBINon 01-03-2021 HbA1c (Bld) [Mass fraction] 6.6 % [employer] Other Glucose - FINGER STICKon Glucose [Mass/Vol] 142 mg/dL [employer] Other HbA1c (Bld) [Mass fraction]o n 01-03-2021 A1C HEMOGLOBIN [employer] Other CNPNon 10-27-2020 CNPN Telephone ([place]) ----- LANI LIZAMA ([id number]) 1950 M Date Time Provider Department 10/27/20 [...] Status:Closed by ANGELINE WARE on 10/28/20 Normal [facility] Cardiovascular Lab Reporton 10-16-2018 Cardiovascular Lab Report [facility] Patient Name: [facility] MR #: [id number] Physician: Pinky Bishop Department of M.D. Medicine Service Date: 10/15/2018 Division of Birthdate: 1950 Cardiology Room #: [id number] Adult Cardiovascular Services [place] [address] Cardiovascular Laboratory Report FINAL IMPRESSIONS: 1. Severe three-vessel [place] coronary artery disease. 2. Ynos-rm-tcei bypass grafts patent. 3. Mild in-stent restenosis [...] 4. Follow up with me in the [facility] in the next 4-6 weeks. 5. [...] guidance and using a micropuncture kit. A 6-Z[place] Glidesheath was inserted without difficulty. Coronary angiography [...] of the vessel. There is evidence of qdmd-xv-fadnr collaterals. The distal vessel is supplied via [...] is a long stented segment in the lloxsbnw-jo-hluafn portion of the vessel with 30% in-stent restenosis. The vessel distal to the touchdown shows caliber reduction and no discrete stenosis. There is diffuse disease in the branches. Saphenous vein graft to the posterior descending artery. This is widely patent. It shows an extensive stented segment from cexcdcus-td-polirfpjrh of the vessel. There is a 40%-50% [...] Bishop M.D. Date Trans: 10/16/2018 05:01 Nakul/gatito [id number] cc: Harley Crespo D.O. [address] [place] [id number] Normal [facility] BASIC METABOLIC PANELon 09-29 Calcium [Mass/Vol] 8.9 mg/dL Normal 8.6-10.3 [facility] Comment on above: Order Comment: No: D o not add to previous draw Performed By: #### 1 [id number], [id number] #### [facility] [address] [place] [address], [place] Chloride [Moles/Vol] 110 mmol/L High 98-107 [facility] Comment on above: Order Comment: No: D o not add to previous draw Performed By: #### 1 69, [id number] #### [facility] [address] [place] [address], [place] CO2 [Moles/Vol] 26 mmol/L Normal 21-31 [facility] Comment on above: Order Comment: No: D o not add to previous draw Performed By: #### 1 69, [id number] #### [facility] [address] [place] [address], [place] Creatinine [Mass/Vol] 1.52 mg/dL High 0.70-1.30 [facility] Comment on above: Order Comment: No: D o not add to previous draw Performed By: #### 1 69, [id number] #### [facility] [address] [place] [address], [place] GFR/1.73 sq M predicted among blacks MDRD (S/P/Bld) [Vol rate/Area] 56 ml/min/1.73sq m Abnormal >60 [facility] Comment on above: Order Comment: No: D o not add to previous draw Performed By: #### 1 69, [id number] #### [facility] [address] [place] [address], [place] GFR/1.73 sq M predicted among non-blacks MDRD (S/P/Bld) [Vol rate/Area] 46 ml/min/1.73sq m Abnormal >60 [facility] Comment on above: Order Comment: No: D o not add to previous draw Performed By: #### 1 69, [id number] #### [facility] [address] [place] [address], [place] Glucose [Mass/Vol] 89 mg/dL Normal 70-100 [facility] Comment on above: Order Comment: No: D o not add to previous draw Performed By: #### 1 69, [id number] #### [facility] [address] [place] [address], [place] Potassium [Moles/Vol] 3.9 mmol/L Normal 3.5-5.1 [facility] Comment on above: Order Comment: No: D o not add to previous draw Performed By: #### 1 69, [id number] #### [facility] [address] [place] [address], [place] Sodium [Moles/Vol] 141 mmol/L Normal 136-145 [facility] Comment on above: Order Comment: No: D o not add to previous draw Performed By: #### 1 69, [id number] #### [facility] [address] [place] [address], [place] Urea nitrogen [Mass/Vol] 19 mg/dL Normal 7-25 [facility] Comment on above: Order Comment: No: D o not add to previous draw Performed By: #### 1 0070, [id number] #### [facility] [address] [place] [address], [facility] CBC W/DIFFon 10-15-2018 ABS BASOPHILS 0.1 10*3/uL Normal 0.0-0.2 [facility] Comment on above: Order Comment: No: D o not add to previous draw Performed By: #### 5 0103 #### [facility] [address] [place] [address], [facility] ABS IMM GRANS 0.0 10*3/uL Normal 0.0-0.2 [facility] Comment on above: Order Comment: No: D o not add to previous draw Performed By: #### 5 0103 #### [facility] [address] [place] [address], [facility] ABS NEUTROPHILS 3.5 10*3/uL Normal 1.6-7.6 [facility] Comment on above: Order Comment: No: D o not add to previous draw Performed By: #### 5 0103 #### [facility] [address] [place] [address], [facility] Basophils/100 WBC (Bld) 0.8 % Normal 0.0-1.0 [facility] Comment on above: Order Comment: No: D o not add to previous draw Performed By: #### 5 0103 #### [facility] [address] [place] [id number], [facility] Eosinophils (Bld) [#/Vol] 0.3 10*3/uL Normal 0.0-0.5 [facility] Comment on above: Order Comment: No: D o not add to previous draw Performed By: #### 5 0103 #### [facility] [address] [place] [id number], [place] Eosinophils/100 WBC (Bld) 3.9 % Normal 0.0-6.0 [facility] Comment on above: Order Comment: No: D o not add to previous draw Performed By: #### 5 0103 #### [facility] [address] [place] [address], [facility] Erythrocyte distribution width (RBC) [Ratio] 13.5 % Normal 11.5-15.0 [facility] Comment on above: Order Comment: No: D o not add to previous draw Performed By: #### 5 0103 #### [facility] [address] [place] [address], [facility] Hematocrit (Bld) [Volume fraction] 39.7 % Normal 39.0-50.0 [facility] Comment on above: Order Comment: No: D o not add to previous draw Performed By: #### 5 0103 #### [facility] [address] [place] [address], [facility] Hemoglobin (Bld) [Mass/Vol] 13.0 g/dL Normal 13.0-17.0 [facility] Comment on above: Order Comment: No: D o not add to previous draw Performed By: #### 5 0103 #### [facility] [address] [place] [address], [facility] IMMATURE GRANS 0.3 % Normal 0.0-1.0 [facility] Comment on above: Order Comment: No: D o not add to previous draw Performed By: #### 5 0103 #### [facility] [address] [place] [address], [facility] Lymphocytes (Bld) [#/Vol] 1.9 10*3/uL Normal 1.2-4.0 [facility] Comment on above: Order Comment: No: D o not add to previous draw Performed By: #### 5 0103 #### [facility] [address] [place] [address], [facility] Lymphocytes/100 WBC (Bld) 30.1 % Normal 20.0-45.0 [facility] Comment on above: Order Comment: No: D o not add to previous draw Performed By: #### 5 0103 #### [facility] [address] [place] [address], [facility] MCH (RBC) [Entitic mass] 30.0 pg Normal 27.0-33.0 [facility] Comment on above: Order Comment: No: D o not add to previous draw Performed By: #### 5 0103 #### [facility] [address] [place] [address], [facility] MCHC (RBC) [Mass/Vol] 32.7 g/dL Normal 32.0-35.0 [facility] Comment on above: Order Comment: No: D o not add to previous draw Performed By: #### 5 0103 #### [facility] [address] [place] [address], [facility] MCV (RBC) [Entitic vol] 91.5 fL Normal 82.0-98.0 [facility] Comment on above: Order Comment: No: D o not add to previous draw Performed By: #### 5 0103 #### [facility] [address] [place] [place] [address], [facility] Monocytes (Bld) [#/Vol] 0.7 10*3/uL Normal 0.1-1.0 [facility] Comment on above: Order Comment: No: D o not add to previous draw Performed By: #### 5 0103 #### [facility] [address] [place] [id number], [facility] MONOS 10.7 % Normal 5.0-12.0 [facility] Comment on above: Order Comment: No: D o not add to previous draw Performed By: #### 5 0103 #### [facility] [address] [place] [address], [facility] Neutrophils/100 WBC (Bld) 54.2 % Normal 40.0-72.0 [facility] Comment on above: Order Comment: No: D o not add to previous draw Performed By: #### 5 0103 #### [facility] [address] [place] [address], [facility] Nucleated RBC/100 WBC (Bld) [Ratio] 0 % Normal 0-0 [facility] Comment on above: Order Comment: No: D o not add to previous draw Performed By: #### 5 0103 #### [facility] [address] [place] [address], [facility] PLAT CNT 164 10*3/uL Normal 150-400 [facility] Comment on above: Order Comment: No: D o not add to previous draw Performed By: #### 5 0103 #### [facility] [address] [place] [address], [facility] RBC (Bld) [#/Vol] 4.34 10*6/uL Normal 4.20-5.70 [facility] Comment on above: Order Comment: No: D o not add to previous draw Performed By: #### 5 0103 #### [facility] [address] [facility] [place] [address], [facility] WBC (Bld) [#/Vol] 6.38 10*3/uL Normal 4.00-10.60 [facility] Comment on above: Order Comment: No: D o not add to previous draw Performed By: #### 5 0103 #### [facility] [address] [place] [address], [facility] MAGNESIUM BLOODon 10-15-2018 Magnesium [Mass/Vol] 2.0 mg/dL Normal 1.9-2.7 [facility] Comment on above: Order Comment: No: D o not add to previous draw Performed By: #### 1 0070, [id number] #### [facility] [address] [place] [address], [facility] PROTHROMBIN TIMEon 9 INR Coag (PPP) [Relative time] 1.11 {INR} Normal 0.91-1.16 [facility] Comment on above: Order Comment: No: D [...] 1995;[id number]. Performed By: #### 5 6101 #### [facility] [address] [place] [place] [address], [facility] PT Coag (PPP) [Time] 14.3 s Normal 12.3-14.8 [facility] Comment on above: Order Comment: No: D o not add to previous draw Result Comment: ALL RESULTS MUST BE INTERPRETED WITH RESPECT TO BLOOD DRAWING ARTIFACT OR DILUTION ERROR OF ANTICOAGULANT AT THE TIME OF SAMPLING. Performed By: #### 5 6101 #### [facility] [address] [place] [address], [facility] POC GLUCOSE LABon 10-14-2018 Glucose [Mass/Vol] 180 mg/dL High 70-100 [facility] Comment on above: Performed By: #### 8 5499 #### [facility] [address] [place] [address], [facility] Cardiovascular Lab Reporton 02-25-2018 Cardiovascular Lab Report [facility] Patient Name: [facility] MR #: [id number] Physician: Pinky Bishop, Department of M.D. Medicine Service Date: 02/24/2018 Division of Birthdate: 1950 Cardiology Room #: 3AB [id number] Adult Cardiovascular Services [facility] [address] [place] [id number] Cardiovascular Laboratory Report FINAL IMPRESSIONS: 1. 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 2. Severe 3-vessel [place]arl[place] coronary artery disease. 3. 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 4. Gmkrcpji-gz-lxrqky systemic hypertension. RECOMMENDATIONS: 1. Aspirin 81 mg lifelong. 2. 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 3. Aggressive cardiovascular risk factor modification. 4. Optimization of medical management; high intensity statin therapy as tolerated, we will switch his Toprol-XL to Coreg 25 mg p.o. b.i.d., and angiotensin-converting enzyme inhibitor. 5. Follow up with me in the [facility] in the next 2-3 weeks. 6. Follow up with Dr. Crespo as scheduled. PROCEDURES: Limited femoral angiography, bilateral selective coronary angiography, saphenous vein graft angiography, angiography of the left internal mammary artery graft, limited angiography of the left subclavian, percutaneous balloon angioplasty, and Synergy drug-eluting stent placement to the saphenous vein graft to the obtuse marginal, placement of a 6-Zimbabwean MYNXGRIP closure device. METHODS: After risks, benefits, and alternatives were explained, written informed consent was obtained. The patient was prepped and draped in usual sterile fashion over both groins. Using 1% lidocaine solution, local infiltration anesthesia was achieved over the right groin. Using a micropuncture kit, access of the right common femoral artery was obtained. A 6-Zimbabwean 11 cm sheath was exchanged then without [...] to proceed with an interventional procedure. A 6-Zimbabwean JR4 guide catheter was advanced in and [...] the procedure. All catheters were removed. A 6-Zimbabwean MYNXGRIP closure device was deployed per protocol [...] is a 30% touchdown stenosis of the karl[place] vessel. There is evidence of vpll-sk-ikxzk collaterals supplying the distal right coronary artery. Limited femoral angiography, this shows mild plaque and anatomy suitable for closure device. INDICATIONS: Unstable angina. Electronically Signed by: Pinky Bishop M.D. 03/06/2018 12:15 P Pinky Bishop M.D. Date Dict: 02/24/2018/01:39 May/Pinky Bishop M.D. Date Trans: 02/25/2018 02:12 Nakul/gatito [id number] cc: Harley Crespo D.O. [address] [place] [id number] [place] [facility] POC GLUCOSE LABon 02-25-2018 Glucose [Mass/Vol] 150 mg/dL High 70-100 [facility] Comment on above: Performed By: #### 8 [id number] #### [facility] [address] [place] [address], [facility] POC GLUCOSE LABon 02-24-2018 Glucose [Mass/Vol] 192 mg/dL High 70-100 [facility] Comment on above: Performed By: #### 8 [id number] #### [facility] [address] [place] [address], [facility] Glucose [Mass/Vol] 186 mg/dL High 70-100 [facility] Comment on above: Performed By: #### 8 [id number] #### [facility] [address] [place] [address], [facility] Vital Signs Date Time Vital Sign Value Performing Clinician Facility 09-24-2024 08:32-0400 Body height 170.2 cm Kenneth Tavera DPM Work Phone: [facility] 09-24-2024 08:32-0400 Body mass index (BMI) [Ratio] 26.78 kg/m2 Kenneth Tavera DPM Work Phone: [facility] 09-24-2024 08:32-0400 Body weight 77.56 kg Kenneth Tavera DPM Work Phone: [facility] 09-24-2024 08:32-0400 Respiratory rate 18 /min Kenneth Tavera DPM Work Phone: [facility] 08-25-2024 11:33-0400 Body height 170.18 cm [facility] 08-25-2024 11:33-0400 Body mass index (BMI) [Ratio] 26.9 kg/m2 [facility] 08-25-2024 11:33-0400 Body weight 77.79 kg [facility] 08-25-2024 11:33-0400 Diastolic blood pressure 73 mm[Hg] [facility] 08-25-2024 11:33-0400 Heart rate 77 /min [facility] 08-25-2024 11:33-0400 Respiratory rate 12 /min [facility] 08-25-2024 11:33-0400 SaO2% (BldA) [Mass fraction] 97 % [facility] 08-25-2024 11:33-0400 Systolic blood pressure 126 mm[Hg] [facility] 08-03-2024 09:28-0400 Body height 170.18 cm Harley Ball DO Work Phone: [facility] 08-03-2024 09:28-0400 Body mass index (BMI) [Ratio] 31.8 kg/m2 Harley Ball DO Work Phone: [facility] 08-03-2024 09:28-0400 Body weight 92.4 kg Harley Ball DO Work Phone: [facility] 08-03-2024 09:28-0400 Diastolic blood pressure 83 mm[Hg] Harley Ball DO Work Phone: [facility] 08-03-2024 09:28-0400 Heart rate 77 /min Harley Ball DO Work Phone: [facility] 08-03-2024 09:28-0400 Respiratory rate 18 /min Harley Ball DO Work Phone: [facility] 08-03-2024 09:28-0400 SaO2% (BldA) [Mass fraction] 99 % Harley Ball DO Work Phone: [facility] 08-03-2024 09:28-0400 Systolic blood pressure 143 mm[Hg] Harley Ball DO Work Phone: [facility] 07-27-2024 11:29-0400 Diastolic blood pressure 80 mm[Hg] Harley Ball DO Work Phone: [facility] 07-27-2024 11:29-0400 Heart rate 74 /min Harley Ball DO Work Phone: [facility] 07-27-2024 11:29-0400 Systolic blood pressure 143 mm[Hg] Harley Ball DO Work Phone: [facility] 07-27-2024 11:23-0400 Body height 170.18 cm Halrey Ball DO Work Phone: [facility] 07-27-2024 11:23-0400 Body mass index (BMI) [Ratio] 28.8 kg/m2 Harley Ball DO Work Phone: [facility] 07-27-2024 11:23-0400 Body weight 83.57 kg Harley Ball DO Work Phone: [facility] 07-27-2024 11:23-0400 Respiratory rate 12 /min Harley Ball DO Work Phone: [facility] 07-27-2024 11:23-0400 SaO2% (BldA) [Mass fraction] 100 % Harley Ball DO Work Phone: [facility] 07-14-2024 09:43-0400 Body height 170.18 cm Harley Ball DO Work Phone: [facility] 07-14-2024 09:43-0400 Body mass index (BMI) [Ratio] 28.1 kg/m2 Harley Ball DO Work Phone: [facility] 07-14-2024 09:43-0400 Body weight 81.64 kg Harley Ball DO Work Phone: [facility] 07-14-2024 09:43-0400 Diastolic blood pressure 83 mm[Hg] Harley Ball DO Work Phone: [facility] 07-14-2024 09:43-0400 Heart rate 74 /min Harley Ball DO Work Phone: [facility] 07-14-2024 09:43-0400 Respiratory rate 16 /min Harley Ball DO Work Phone: [facility] 07-14-2024 09:43-0400 SaO2% (BldA) [Mass fraction] 99 % Harley Ball DO Work Phone: [facility] 07-14-2024 09:43-0400 Systolic blood pressure 141 mm[Hg] Harley Ball DO Work Phone: [facility] 04-30-2024 09:42-0500 Body height 170.18 cm [facility] 04-30-2024 09:42-0500 Body mass index (BMI) [Ratio] 27.9 kg/m2 [facility] 04-30-2024 09:42-0500 Body weight 80.96 kg [facility] 04-30-2024 09:42-0500 Diastolic blood pressure 80 mm[Hg] [facility] 04-30-2024 09:42-0500 Heart rate 81 /min [facility] 04-30-2024 09:42-0500 Respiratory rate 18 /min [facility] 04-30-2024 09:42-0500 SaO2% (BldA) [Mass fraction] 98 % [facility] 04-30-2024 09:42-0500 Systolic blood pressure 134 mm[Hg] [facility] 04-16-2024 08:24-0500 Body height 170.18 cm [facility] 04-16-2024 08:24-0500 Body mass index (BMI) [Ratio] 28.2 kg/m2 [facility] 04-16-2024 08:24-0500 Body weight 81.76 kg [facility] 04-16-2024 08:24-0500 Diastolic blood pressure 80 mm[Hg] [facility] 04-16-2024 08:24-0500 Heart rate 84 /min [facility] 04-16-2024 08:24-0500 Respiratory rate 12 /min [facility] 04-16-2024 08:24-0500 SaO2% (BldA) [Mass fraction] 97 % [facility] 04-16-2024 08:24-0500 Systolic blood pressure 137 mm[Hg] [facility] 04-02-2024 11:44-0500 Body height 170.2 cm Kenneth Tavera DPM Work Phone: [facility] 04-02-2024 11:44-0500 Body mass index (BMI) [Ratio] 26.78 kg/m2 Kenneth Tavera DPM Work Phone: [facility] 04-02-2024 11:44-0500 Body weight 77.56 kg Kenneth Tavera DPM Work Phone: [facility] 04-02-2024 11:44-0500 Respiratory rate 18 /min Kenneth Tavera DPM Work Phone: [facility] 02-24-2024 09:46-0500 Body height 170.18 cm [facility] 02-24-2024 09:46-0500 Body mass index (BMI) [Ratio] 27.1 kg/m2 [facility] 02-24-2024 09:46-0500 Body weight 78.47 kg [facility] 02-24-2024 09:46-0500 Diastolic blood pressure 68 mm[Hg] [facility] 02-24-2024 09:46-0500 Heart rate 80 /min [facility] 02-24-2024 09:46-0500 SaO2% (BldA) [Mass fraction] 97 % [facility] 02-24-2024 09:46-0500 Systolic blood pressure 110 mm[Hg] [facility] 01-23-2024 11:29-0400 Body height 170.2 cm Kenneth Tavera DPM Work Phone: [facility] 01-23-2024 11:29-0400 Body mass index (BMI) [Ratio] 26.78 kg/m2 Kenneth Tavera DPM Work Phone: [facility] 01-23-2024 11:29-0400 Body weight 77.56 kg Kenneth Tavera DPM Work Phone: [facility] 01-23-2024 11:29-0400 Diastolic blood pressure 82 mm[Hg] Kenneth Tavera DPM Work Phone: [facility] 01-23-2024 11:29-0400 Heart rate 88 /min Kenneth Tavera DPM Work Phone: [facility] 01-23-2024 11:29-0400 Systolic blood pressure 128 mm[Hg] Kenneth Tavera DPM Work Phone: [facility] 01-23-2024 09:05-0400 Body height 170.18 cm [facility] 01-23-2024 09:05-0400 Body mass index (BMI) [Ratio] 27.3 kg/m2 [facility] 01-23-2024 09:05-0400 Body weight 79.37 kg [facility] 01-23-2024 09:05-0400 Diastolic blood pressure 71 mm[Hg] [facility] 01-23-2024 09:05-0400 Heart rate 78 /min [facility] 01-23-2024 09:05-0400 Respiratory rate 18 /min [facility] 01-23-2024 09:05-0400 SaO2% (BldA) [Mass fraction] 98 % [facility] 01-23-2024 09:05-0400 Systolic blood pressure 106 mm[Hg] [facility] 01-07-2024 08:26-0400 Body height 170.18 cm [facility] 01-07-2024 08:26-0400 Body mass index (BMI) [Ratio] 27.2 kg/m2 [facility] 01-07-2024 08:26-0400 Body temperature 96.7 [degF] [facility] 01-07-2024 08:26-0400 Body weight 78.98 kg [facility] 01-07-2024 08:26-0400 Diastolic blood pressure 77 mm[Hg] [facility] 01-07-2024 08:26-0400 Heart rate 91 /min [facility] 01-07-2024 08:26-0400 Respiratory rate 16 /min [facility] 01-07-2024 08:26-0400 SaO2% (BldA) [Mass fraction] 97 % [facility] 01-07-2024 08:26-0400 Systolic blood pressure 123 mm[Hg] [facility] 12-12-2023 08:25-0400 Body height 170.18 cm [facility] 12-12-2023 08:25-0400 Body mass index (BMI) [Ratio] 27.4 kg/m2 [facility] 12-12-2023 08:25-0400 Body weight 79.49 kg [facility] 12-12-2023 08:25-0400 Diastolic blood pressure 79 mm[Hg] [facility] 12-12-2023 08:25-0400 Heart rate 80 /min [facility] 12-12-2023 08:25-0400 Respiratory rate 12 /min [facility] 12-12-2023 08:25-0400 Systolic blood pressure 127 mm[Hg] [facility] 10-17-2023 09:21-0400 Body height 170.18 cm [facility] 10-17-2023 09:21-0400 Body mass index (BMI) [Ratio] 28.2 kg/m2 [facility] 10-17-2023 09:21-0400 Body weight 81.81 kg [facility] 10-17-2023 09:21-0400 Diastolic blood pressure 79 mm[Hg] [facility] 10-17-2023 09:21-0400 Heart rate 70 /min [facility] 10-17-2023 09:21-0400 Respiratory rate 18 /min [facility] 10-17-2023 09:21-0400 SaO2% (BldA) [Mass fraction] 97 % [facility] 10-17-2023 09:21-0400 Systolic blood pressure 133 mm[Hg] [facility] 08-12-2023 08:37-0400 Body height 170.18 cm [facility] 08-12-2023 08:37-0400 Body mass index (BMI) [Ratio] 27.6 kg/m2 [facility] 08-12-2023 08:37-0400 Body weight 79.88 kg [facility] 08-12-2023 08:37-0400 Diastolic blood pressure 84 mm[Hg] [facility] 08-12-2023 08:37-0400 Heart rate 82 /min [facility] 08-12-2023 08:37-0400 Respiratory rate 12 /min [facility] 08-12-2023 08:37-0400 Systolic blood pressure 134 mm[Hg] [facility] 07-02-2023 08:54-0400 Body height 170.18 cm [facility] 07-02-2023 08:54-0400 Body mass index (BMI) [Ratio] 27.3 kg/m2 [facility] 07-02-2023 08:54-0400 Body temperature 96.5 [degF] [facility] 07-02-2023 08:54-0400 Body weight 79.09 kg [facility] 07-02-2023 08:54-0400 Diastolic blood pressure 79 mm[Hg] [facility] 07-02-2023 08:54-0400 Heart rate 87 /min [facility] 07-02-2023 08:54-0400 Respiratory rate 18 /min [facility] 07-02-2023 08:54-0400 SaO2% (BldA) [Mass fraction] 96 % [facility] 07-02-2023 08:54-0400 Systolic blood pressure 120 mm[Hg] [facility] 06-18-2023 10:51-0400 Body height 170.18 cm [facility] 06-18-2023 10:51-0400 Body mass index (BMI) [Ratio] 26.6 kg/m2 [facility] 06-18-2023 10:51-0400 Body weight 77.11 kg [facility] 06-18-2023 10:51-0400 Diastolic blood pressure 84 mm[Hg] [facility] 06-18-2023 10:51-0400 Heart rate 95 /min [facility] 06-18-2023 10:51-0400 Respiratory rate 18 /min [facility] 06-18-2023 10:51-0400 SaO2% (BldA) [Mass fraction] 97 % [facility] 06-18-2023 10:51-0400 Systolic blood pressure 127 mm[Hg] [facility] [facility] 05[facility]2023 09:30-0500 Body height 170.18 cm DO Harley Ball Work Phone: [facility] 05-03-2023 09:30-0500 Body weight 77.29 kg DO Harley Ball Work Phone: [facility] 05-03-2023 09:30-0500 Diastolic blood pressure 85 mm[Hg] DO Harley Ball Work Phone: [facility] 05-03-2023 09:30-0500 Systolic blood pressure 126 mm[Hg] DO Harley Ball Work Phone: [facility] 03-12-2023 11:15-0500 Body height 170.18 cm Tondra Mapus Other [facility] 03-12-2023 11:15-0500 Body mass index (BMI) [Ratio] 27.03 kg/m2 Tondra Mapus Other [employer] Other 03-12-2023 11:15-0500 Body weight 78.29 kg Tondra Mapus Other [facility] 03-12-2023 11:15-0500 Diastolic blood pressure 79 mm[Hg] Tondra Mapus Other [facility] 03-12-2023 11:15-0500 Respiratory rate 18 /min Tondra Mapus Other [employer] Other 03-12-2023 11:15-0500 SaO2% (BldA) [Mass fraction] 98 % Tondra Mapus Other [employer] Other 03-12-2023 11:15-0500 Systolic blood pressure 128 mm[Hg] Tondra Mapus Other [facility] 01-07-2023 10:00-0400 Body height 170.18 cm Kingsley Latisha Other [employer] Other 01-07-2023 10:00-0400 Body mass index (BMI) [Ratio] 27 kg/m2 Kingsley Latisha Other [employer] Other 01-07-2023 10:00-0400 Body temperature 97.7 [degF] Kingsley Latisha Other [employer] Other 01-07-2023 10:00-0400 Body weight 78.2 kg Kingsley Latisha Other [employer] Other 01-07-2023 10:00-0400 Diastolic blood pressure 73 mm[Hg] Kingsley Latisha Other [employer] Other 01-07-2023 10:00-0400 Respiratory rate 16 /min Kingsley Latisha Other [employer] Other 01-07-2023 10:00-0400 SaO2% (BldA) [Mass fraction] 98 % Kingsley Latisha Other [employer] Other 01-07-2023 10:00-0400 Systolic blood pressure 108 mm[Hg] Kingsley Latisha Other [employer] Other 12-31-2022 09:30-0400 Body height 170.18 cm Harley Ball Other [employer] Other 12-31-2022 09:30-0400 Body mass index (BMI) [Ratio] 27.03 kg/m2 Harley Ball Other [employer] Other 12-31-2022 09:30-0400 Body weight 78.29 kg Harley Ball Other [employer] Other 12-31-2022 09:30-0400 Diastolic blood pressure 69 mm[Hg] Harley Ball Other [employer] Other 12-31-2022 09:30-0400 Respiratory rate 16 /min Harley Ball Other [employer] Other 12-31-2022 09:30-0400 Systolic blood pressure 102 mm[Hg] Harley Ball Other [employer] Other 08-31-2022 08:45-0400 Body height 170.18 cm Harley Ball Other [employer] Other 08-31-2022 08:45-0400 Body mass index (BMI) [Ratio] 26.72 kg/m2 Harley Ball Other [employer] Other 08-31-2022 08:45-0400 Body weight 77.38 kg Harley Ball Other [employer] Other 08-31-2022 08:45-0400 Diastolic blood pressure 69 mm[Hg] Harley Ball Other [employer] Other 08-31-2022 08:45-0400 Respiratory rate 12 /min Harley Ball Other [employer] Other 08-31-2022 08:45-0400 Systolic blood pressure 102 mm[Hg] Harley Ball Other [employer] Other 07-02-2022 10:40-0400 Body height 170.18 cm Kingsley Latisha Other [employer] Other 07-02-2022 10:40-0400 Body mass index (BMI) [Ratio] 27.69 kg/m2 Kingsley Latisha Other [employer] Other 07-02-2022 10:40-0400 Body temperature 96.4 [degF] Kingsley Latisha Other [employer] Other 07-02-2022 10:40-0400 Body weight 80.2 kg Kingsley Latisha Other [employer] Other 07-02-2022 10:40-0400 Diastolic blood pressure 71 mm[Hg] Kingsley Latisha Other [employer] Other 07-02-2022 10:40-0400 Respiratory rate 16 /min Kingsley Latisha Other [employer] Other 07-02-2022 10:40-0400 SaO2% (BldA) [Mass fraction] 97 % Kingsley Latisha Other [employer] Other 07-02-2022 10:40-0400 Systolic blood pressure 115 mm[Hg] Kingsley Latisha Other [employer] Other 06-28-2022 09:30-0400 Body height 170.18 cm Harley Ball Other [employer] Other 06-28-2022 09:30-0400 Body mass index (BMI) [Ratio] 27.16 kg/m2 Harley Ball Other [employer] Other 06-28-2022 09:30-0400 Body weight 78.65 kg Harley Ball Other [employer] Other 06-28-2022 09:30-0400 Diastolic blood pressure 66 mm[Hg] Harley Ball Other [employer] Other 06-28-2022 09:30-0400 Respiratory rate 12 /min Harley Ball Other [employer] Other 06-28-2022 09:30-0400 Systolic blood pressure 115 mm[Hg] Harley Ball Other [employer] Other 03-28-2023 08:45-0400 Body height 170.18 cm Tondra Mapus Other [employer] Other 06-26-2022 08:45-0400 Body mass index (BMI) [Ratio] 27.75 kg/m2 Tondra Mapus Other [employer] Other 06-26-2022 08:45-0400 Body weight 80.38 kg Tondra Mapus Other [employer] Other 06-26-2022 08:45-0400 Diastolic blood pressure 61 mm[Hg] Tondra Mapus Other [employer] Other 06-26-2022 08:45-0400 Respiratory rate 16 /min Tondra Mapus Other [employer] Other 06-26-2022 08:45-0400 SaO2% (BldA) [Mass fraction] 96 % Tondra Mapus Other [employer] Other 06-26-2022 08:45-0400 Systolic blood pressure 105 mm[Hg] Tondra Mapus Other [employer] Other 03-20-2022 09:15-0500 Body height 170.18 cm Tondra Mapus Other [employer] Other 03-20-2022 09:15-0500 Body mass index (BMI) [Ratio] 26.15 kg/m2 Tondra Mapus Other [employer] Other 03-20-2022 09:15-0500 Body weight 75.75 kg Tondra Mapus Other [employer] Other 03-20-2022 09:15-0500 Diastolic blood pressure 57 mm[Hg] Tondra Mapus Other [facility] [employer] Other 03-20-2022 09:15-0500 Respiratory rate 16 /min Tondra Mapus Other [facility] [employer] Other 03-20-2022 09:15-0500 SaO2% (BldA) [Mass fraction] 98 % Tondra Mapus Other [facility] [employer] Other 03-20-2022 09:15-0500 Systolic blood pressure 117 mm[Hg] Tondra Mapus Other [facility] [employer] Other 01-17-2022 11:45-0400 Body height 170.18 cm DO Harley Ball Work Phone: [facility] 01-17-2022 11:22-0400 Diastolic blood pressure 68 mm[Hg] DO Harley Ball Work Phone: [facility] 01-17-2022 11:22-0400 Heart rate 60 /min DO Harley Ball Work Phone: [facility] 01-17-2022 11:22-0400 Systolic blood pressure 118 mm[Hg] DO Harley Ball Work Phone: [facility] 01-17-2022 11:05-0400 Body temperature 97.4 [degF] DO Harley Ball Work Phone: [facility] 01-17-2022 11:05-0400 Respiratory rate 18 /min DO Harley Ball Work Phone: [facility] 01-17-2022 11:05-0400 SaO2% (BldA) [Mass fraction] 95 % DO Harley Ball Work Phone: [facility] 01-17-2022 06:58-0400 Body weight 77.9 kg DO Harley Ball Work Phone: [facility] 01-15-2022 15:23-0400 Inhaled oxygen flow rate 2 L/min DO Harley Ball Work Phone: [facility] 12-18-2021 09:45-0400 Body height 170.18 cm Tondra Mapus Other [employer] Other 12-18-2021 09:45-0400 Body mass index (BMI) [Ratio] 27.25 kg/m2 Tondra Mapus Other [employer] Other 12-18-2021 09:45-0400 Body weight 78.93 kg Tondra Mapus Other [employer] Other 12-18-2021 09:45-0400 Diastolic blood pressure 65 mm[Hg] Tondra Mapus Other [employer] Other 12-18-2021 09:45-0400 Respiratory rate 16 /min Tondra Mapus Other [employer] Other 12-18-2021 09:45-0400 SaO2% (BldA) [Mass fraction] 97 % Tondra Mapus Other [employer] Other 12-18-2021 09:45-0400 Systolic blood pressure 133 mm[Hg] Tondra Mapus Other [employer] Other 09-29-2021 13:13-0400 Blood Pressure Location Gagan DAVID [facility] 09-29-2021 13:13-0400 Diastolic blood pressure 74 mm[Hg] Gagan DAVID [facility] [place] 09-29-2021 13:13-0400 Heart rate 60 /min Gagan MORGANL [facility] [place] 09-29-2021 13:13-0400 Respiratory rate 16 /min Gagan NILL [facility] [place] 09-29-2021 13:13-0400 Systolic blood pressure 138 mm[Hg] Gagan NILL [facility] [place] 07-17-2021 09:45-0400 Body height 170.18 cm Tondra Mapus Other [employer] Other 07-17-2021 09:45-0400 Body mass index (BMI) [Ratio] 30.69 kg/m2 Tondra Mapus Other [employer] Other 07-17-2021 09:45-0400 Body weight 88.91 kg Tondra Mapus Other [employer] Other 07-17-2021 09:45-0400 Diastolic blood pressure 73 mm[Hg] Tondra Mapus Other [employer] Other 07-17-2021 09:45-0400 Respiratory rate 16 /min Tondra Mapus Other [employer] Other 07-17-2021 09:45-0400 SaO2% (BldA) [Mass fraction] 97 % Tondra Mapus Other [employer] Other 07-17-2021 09:45-0400 Systolic blood pressure 163 mm[Hg] Tondra Mapus Other [employer] Other 06-06-2021 10:20-0500 Body height 170.18 cm Kingsley Latisha Other [employer] Other 06-06-2021 10:20-0500 Body mass index (BMI) [Ratio] 30.29 kg/m2 Kingsley Latisha Other [employer] Other 06-06-2021 10:20-0500 Body temperature 96.1 [degF] Kingsley Latisha Other [employer] Other 06-06-2021 10:20-0500 Body weight 87.73 kg Kingsley Latisha Other [employer] Other 06-06-2021 10:20-0500 Diastolic blood pressure 70 mm[Hg] Kingsley Latisha Other [employer] Other 06-06-2021 10:20-0500 Respiratory rate 18 /min Kingsley Latisha Other [employer] Other 06-06-2021 10:20-0500 SaO2% (BldA) [Mass fraction] 97 % Kingsley Latisha Other [employer] Other 06-06-2021 10:20-0500 Systolic blood pressure 160 mm[Hg] Kingsley Latisha Other [employer] Other 04-10-2021 09:15-0500 Body height 170.18 cm Tondra Mapus Other [employer] Other 04-10-2021 09:15-0500 Body mass index (BMI) [Ratio] 30.99 kg/m2 Tondra Mapus Other [employer] Other 04-10-2021 09:15-0500 Body weight 89.77 kg Tondra Mapus Other [employer] Other 04-10-2021 09:15-0500 Diastolic blood pressure 64 mm[Hg] Tondra Mapus Other [employer] Other 04-10-2021 09:15-0500 Respiratory rate 18 /min Tondra Mapus Other [employer] Other 04-10-2021 09:15-0500 SaO2% (BldA) [Mass fraction] 98 % Tondra Mapus Other [employer] Other 04-10-2021 09:15-0500 Systolic blood pressure 136 mm[Hg] Tondra Mapus Other [employer] Other 02-14-2021 10:00-0500 Body height 170.18 cm Kingsley Latisha Other [employer] Other 02-14-2021 10:00-0500 Body mass index (BMI) [Ratio] 30.98 kg/m2 Kingsley Latisha Other [employer] Other 02-14-2021 10:00-0500 Body temperature 96 [degF] Kingsley Latisha Other [employer] Other 02-14-2021 10:00-0500 Body weight 89.72 kg Kingsley Latisha Other [employer] Other 02-14-2021 10:00-0500 Diastolic blood pressure 60 mm[Hg] Kingsley Latisha Other [employer] Other 02-14-2021 10:00-0500 Respiratory rate 16 /min Kingsley Latisha Other [employer] Other 02-14-2021 10:00-0500 SaO2% (BldA) [Mass fraction] 97 % Kingsley Latisha Other [employer] Other 02-14-2021 10:00-0500 Systolic blood pressure 130 mm[Hg] Kingsley Latisha Other [employer] Other 01-03-2021 10:15-0400 Body height 170.18 cm Tondra Mapus Other [employer] Other 01-03-2021 10:15-0400 Body mass index (BMI) [Ratio] 31.01 kg/m2 Tondra Mapus Other [employer] Other 01-03-2021 10:15-0400 Body weight 89.81 kg Tondra Mapus Other [employer] Other 01-03-2021 10:15-0400 Diastolic blood pressure 67 mm[Hg] Tondra Mapus Other [employer] Other 01-03-2021 10:15-0400 Respiratory rate 16 /min Tondra Mapus Other [employer] Other 01-03-2021 10:15-0400 SaO2% (BldA) [Mass fraction] 99 % Tondra Mapus Other [employer] Other 01-03-2021 10:15-0400 Systolic blood pressure 151 mm[Hg] Arlen Kwong Other [employer] Other Encounters Encounter Date Encounter Type Care Provider Facility Start: 10-08-2024 End: 10-08-2024 ambulatory EHAB [facility] Start: 10-06-2024 ambulatory [facility] Start: 09-29-2024 End: 09-29-2024 ambulatory OBI [facility] Start: 09-25-2024 End: 09-25-2024 ambulatory [facility] Start: 09-24-2024 End: 09-24-2024 Bamboo flowsheet Kenneth [...] Start: 09-21-2024 End: 09-21-2024 ambulatory NON STAFF Facility:[facility] Start: 08-28-2024 End: 08-28-2024 ambulatory OBI [facility] Start: 08-28-2024 End: 08-28-2024 ambulatory [facility] Start: 08-27-2024 End: 08-27-2024 ambulatory Harley Crespo Facility:[facility] Start: 08-27-2024 Non-patient / Non-visit [facility] Work Phone: Start: 08-25-2024 End: 08-25-2024 ambulatory [facility] Work Phone: Start: 08-25-2024 End: 08-25-2024 Patient encounter procedure [facility] Work Phone: Start: 08-21-2024 Non-patient / Non-visit [facility] Work Phone: Start: 08-20-2024 End: 08-20-2024 ambulatory NETOAB VIJAY [facility] Start: 08-14-2024 Evaluation and management of inpatient [facility] Start: 08-13-2024 [facility] Start: 08-13-2024 End: 08-14-2024 Evaluation and management of inpatient KATARZYNA Solomon WILL [facility] Start: 08-13-2024 Non-patient / Non-visit [facility] Work Phone: Start: 08-04-2024 End: 08-04-2024 ambulatory OBI JD [facility] Start: 08-04-2024 End: 08-04-2024 ambulatory Jason LARKIN Facility:[facility] Start: 08-04-2024 End: 08-04-2024 Patient encounter procedure Jason LARKIN [facility] Start: 08-03-2024 End: 08-03-2024 ambulatory Jason LARKIN Facility:[facility] Start: 08-03-2024 End: 08-03-2024 Lab Drop off Jason LARKIN [facility] Start: 08-03-2024 End: 08-03-2024 ambulatory HARLEY BALL Facility:[facility] Start: 08-03-2024 End: 08-03-2024 ambulatory Harley Ball DO Work Phone: [facility] Work Phone: Start: 08-03-2024 End: 08-03-2024 Patient encounter procedure Harley Ball DO Work Phone: [facility] Work Phone: Start: 07-27-2024 End: 07-27-2024 ambulatory Harley Ball DO Work Phone: [facility] Work Phone: Start: 07-27-2024 End: 07-27-2024 Patient encounter procedure Harley Ball DO Work Phone: [facility] Work Phone: Start: 07-17-2024 ambulatory EMEKA CRISTOPHER [facility] Start: 07-16-2024 Non-patient / Non-visit Benjam in Ball DO Work Phone: [facility] Work Phone: Start: 07-15-2024 ambulatory Jason LARKIN Facility : [place] Start: 07-15-2024 Non-patient / Non-visit Benjam in Ball DO Work Phone: [facility] Work Phone: Start: 07-14-2024 End: 07-14-2024 ambulatory Harley Ball DO Work Phone: [facility] Work Phone: Start: 07-14-2024 End: 07-14-2024 Patient encounter procedure Harley Ball DO Work Phone: [facility] Work Phone: Start: 07-07-2024 End: 07-07-2024 ambulatory Kingsley Latisha Facility:[facility] Start: 07-07-2024 Non-patient / Non-visit Benjam in Ball DO Work Phone: [facility] Work Phone: Start: 06-22-2024 ambulatory [facility] Start: 06-18-2024 End: 06-18-2024 ambulatory KENNETH TAVERA Not Available Start: 06-10-2024 Non-patient / Non-visit Benjam in Ball DO Work Phone: [facility] Work Phone: Start: 05-28-2024 End: 05-28-2024 Departed Referred Harley Ball DO Work Phone: [facility] Work Phone: Start: 05-28-2024 End: 05-28-2024 Patient encounter procedure Harley Ball DO Work Phone: [facility] Work Phone: Start: 05-28-2024 End: 05-28-2024 ambulatory Harley Ball DO Work Phone: [facility] Work Phone: Start: 05-26-2024 End: 05-26-2024 ambulatory [facility] Start: 05-18-2024 ambulatory [facility] Start: 05-05-2024 Non-patient / Non-visit Benjam in Ball DO Work Phone: [facility] Work Phone: Start: 04-30-2024 End: 04-30-2024 ambulatory [facility] Work Phone: Start: 04-30-2024 End: 04-30-2024 Patient encounter procedure [facility] Work Phone: Start: 04-21-2024 ambulatory [facility] Start: 04-16-2024 End: 04-16-2024 Patient encounter procedure [facility] Work Phone: Start: 04-02-2024 End: 04-02-2024 Ashley henrilynn Tavera DPM Work Phone: [facility] Start: 04-02-2024 End: 04-02-2024 Ildefonsoboo flowsheet Kenneth Tavera DPM Work Phone: [facility] Start: 04-02-2024 End: 04-02-2024 Patient encounter procedure Kenneth Tavera DPM Work Phone: [facility] Comment on above: 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, without long-term current use of insulin ([facility]) (Primary Dx); Pain due to onychomycosis of toenails of both feet Start: 04-02-2024 End: 04-02-2024 ambulatory KENNETH TAVERA Not Available Start: 03-26-2024 ambulatory [facility] Start: 03-26-2024 Encounter for preprocedural cardiovascular examination [facility] Start: 03-10-2024 End: 03-10-2024 ambulatory [facility] Start: 03-06-2024 ambulatory [facility] Start: 02-24-2024 End: 02-24-2024 Patient encounter procedure [facility] Work Phone: Start: 02-20-2024 ambulatory [facility] Start: 02-18-2024 Non-patient / Non-visit [facility] Work Phone: Start: 02-18-2024 Non-patient / Non-visit [facility] Work Phone: Start: 02-13-2024 Evaluation and management of inpatient YFN [facility] Start: 02-13-2024 Evaluation and management of inpatient [facility] Start: 02-13-2024 Evaluation and management of inpatient OSMAN DRISCOLL [facility] Start: 02-13-2024 End: 02-14-2024 Evaluation and management of inpatient HEMALATHA LAGOS [facility] Start: 02-12-2024 Non-patient / Non-visit [facility] Work Phone: Start: 02-12-2024 Non-patient / Non-visit [facility] [...] polyneuropathy, without long-term current use of insulin ([facility]); Pain due to onychomycosis of toenails of both feet Start: 01-23-2024 End: 01-23-2024 ambulatory KENNETH TAVERA Not Available Start: 01-23-2024 End: 01-23-2024 ambulatory [facility] Work Phone: Start: 01-23-2024 End: 01-23-2024 Patient encounter procedure [facility] Work Phone: Start: 01-21-2024 ambulatory [facility] Start: 01-16-2024 ambulatory [facility] Start: 01-10-2024 ambulatory [facility] Start: 01-09-2024 ambulatory [facility] Start: 01-07-2024 End: 01-07-2024 ambulatory [facility] Work Phone: Start: 01-07-2024 End: 01-07-2024 Patient encounter procedure [facility] Work Phone: Start: 12-30-2023 Non-patient / Non-visit [facility] Work Phone: Start: 12-12-2023 End: 12-12-2023 ambulatory [facility] Work Phone: Start: 12-12-2023 End: 12-12-2023 Patient encounter procedure [facility] Work Phone: Start: 11-28-2023 ambulatory [facility] Start: 11-12-2023 End: 11-12-2023 ambulatory [facility] Start: 11-07-2023 End: 11-07-2023 ambulatory KENNETH TAVERA Not Available Start: 10-17-2023 End: 10-17-2023 ambulatory [facility] Work Phone: Start: 10-17-2023 End: 10-17-2023 Patient encounter procedure [facility] Work Phone: Start: 09-26-2023 Non-patient / Non-visit [facility] Work Phone: Start: 09-26-2023 Non-patient / Non-visit [facility] Work Phone: Start: 08-27-2023 Non-patient / Non-visit [facility] Work Phone: Start: 08-12-2023 End: 08-12-2023 ambulatory [facility] Work Phone: Start: 08-12-2023 End: 08-12-2023 Patient encounter procedure [facility] Work Phone: Start: 07-02-2023 End: 07-02-2023 ambulatory [facility] Work Phone: Start: 07-02-2023 End: 07-02-2023 Patient encounter procedure [facility] Work Phone: Start: 06-24-2023 Non-patient / Non-visit [facility] Work Phone: Start: 06-18-2023 End: 06-18-2023 ambulatory [facility] Work Phone: Start: 06-18-2023 End: 06-18-2023 Patient encounter procedure [facility] Work Phone: Start: 06-13-2023 Non-patient / Non-visit [facility] [facility] Work Phone: Start: 05-03-2023 End: 05-03-2023 Patient encounter procedure DO Harley Crespo Work Phone: [facility]- Start: 04-30-2023 End: 04-30-2023 ambulatory Kingsley Latisha Other [employer] Other Start: 04-30-2023 Telephone encounter Kingsley Latisha [facility] Start: 04-23-2023 End: 04-23-2023 ambulatory Tondra Mapus Other [employer] Other Start: 04-23-2023 Telephone encounter Tondra Mapus [facility] Start: 03-12-2023 (DM) Diabetes Tondra Mapus [facility] Start: 03-12-2023 End: 03-12-2023 ambulatory DO Harley Crespo Work Phone: [employer] Other Start: 03-12-2023 End: 03-12-2023 Discharged Recurring DO Harley Crespo Work Phone: [facility] Work Phone: Start: 03-12-2023 End: 03-12-2023 Patient encounter procedure DO Harley Crespo Work Phone: [facility] Work Phone: Start: 02-12-2023 End: 02-12-2023 ambulatory Harley Crespo Other [employer] Other Start: 02-12-2023 Telephone encounter Harley Crespo [facility] Start: 02-07-2023 End: 02-07-2023 ambulatory Harley Crespo Other [employer] Other Start: 02-07-2023 Telephone encounter Harley Crespo MONTEZ [facility] Start: 02-06-2023 End: 02-06-2023 ambulatory Tondra Mapus Other [employer] Other Start: 02-06-2023 Telephone encounter Tondra Mapus [facility] Start: 01-29-2023 End: 01-29-2023 ambulatory Harley Crespo Other [employer] Other Start: 01-29-2023 Telephone encounter Harley Crespo MONTEZ [facility] Start: 01-17-2023 End: 01-17-2023 ambulatory Tondra Mapus Other [employer] Other Start: 01-17-2023 Telephone encounter Tondra Mapus [facility] Start: 01-07-2023 End: 01-07-2023 ambulatory Harley Crespo Other [employer] Other Start: 01-07-2023 Office outpatient vi sit 25 minutes [facility] Start: 01-07-2023 Telephone encounter Harley Crespo MONTEZ [facility] Start: 01-04-2023 End: 01-04-2023 ambulatory Kingsley Latisha Other [employer] Other Start: 01-04-2023 Telephone encounter Kingsley Latisha [facility] Start: 01-01-2023 End: 01-01-2023 ambulatory Kingsley Latisha Other [employer] Other Start: 01-01-2023 Telephone encounter Kingsley Latisha [facility] Start: 12-31-2022 End: 12-31-2022 ambulatory Harley Crespo Other [employer] Other Start: 12-31-2022 Office outpatient vi sit 25 minutes Harley Cherie [facility] Start: 12-31-2022 Telephone encounter Harley Crespo [facility] Start: 12-13-2022 End: 12-13-2022 ambulatory Denita Chairez Other [employer] Other Start: 12-13-2022 Nursing evaluation o f patient and report Denita Mihaela [facility] Start: 11-23-2022 End: 11-23-2022 ambulatory Tondra Mapus Other [employer] Other Start: 11-23-2022 Telephone encounter Tondra Mapus [facility] Start: 10-12-2022 End: 10-12-2022 ambulatory Tondra Mapus Other [employer] Other Start: 10-12-2022 Telephone encounter Tondra Mapus [facility] Start: 10-09-2022 End: 10-09-2022 ambulatory Harley Crespo Other [employer] Other Start: 10-09-2022 Telephone encounter Harley Crespo [facility] Start: 10-01-2022 End: 10-01-2022 ambulatory Harley Crespo Other [employer] Other Start: 10-01-2022 Telephone encounter Harley Crespo [facility] Start: 09-27-2022 End: 09-27-2022 ambulatory Kingsley Latisha Other [employer] Other Start: 09-27-2022 Telephone encounter Kingsley Latisha [facility] Start: 09-26-2022 End: 09-26-2022 ambulatory Harley Crespo Other [employer] Other Start: 09-26-2022 Telephone encounter Harley Crespo [facility] Start: 09-19-2022 End: 09-19-2022 ambulatory Kingsley Latisha Other [employer] Other Start: 09-19-2022 Telephone encounter Kingsley Latisha [facility] Start: 09-12-2022 End: 09-12-2022 ambulatory Harley Crespo Other [employer] Other Start: 09-12-2022 Telephone encounter Harley Crespo [facility] Start: 09-03-2022 End: 09-03-2022 ambulatory Harley Crespo Other [employer] Other Start: 09-03-2022 Telephone encounter Harley Cherie [facility] Start: 08-31-2022 End: 08-31-2022 ambulatory Harley Cherie Other [employer] Other Start: 08-31-2022 Office outpatient vi sit 25 minutes Harley Cherie [facility] Start: 08-10-2022 End: 08-10-2022 ambulatory Harley Cherie Other [employer] Other Start: 08-10-2022 Telephone encounter Harley Cherie [facility] Start: 08-09-2022 End: 08-10-[address] HARLEY CRESPO [facility] [employer] Other Start: 08-09-2022 Telephone encounter Kingsley Latisha [facility] Start: 07-02-2022 End: 07-02-2022 ambulatory Kingsley Latisha Other [employer] Other Start: 07-02-2022 Office outpatient vi sit 25 minutes Kingsley Latisha [facility] Start: 06-28-2022 End: 06-28-2022 ambulatory Harley Crespo Other [employer] Other Start: 06-28-2022 Patient encounter procedure Harley Crespo [facility] Start: 06-26-2022 (DM) Diabetes Tondra Mapus [facility] Start: 06-26-2022 End: 06-26-2022 ambulatory Tondra Mapus Other [employer] Other Start: 06-25-2022 End: 06-26-2022 ambulatory KINGSLEY LATISHA Facility:[facility]1 Start: 06-18-2022 End: 06-19-2022 ambulatory TONDRA MAPUS Facility:[facility] Start: 06-05-2022 End: 06-06-[address] HARLEY CRESPO Facility:[facility] Start: 05-26-2022 End: 05-26-2022 ambulatory Harley Crespo Other [employer] Other Start: 05-26-2022 Telephone encounter Harley Crespo [facility] Start: 05-25-2022 End: 05-25-2022 ambulatory Tondra Mapus Other [employer] Other Start: 05-25-2022 Telephone encounter Tondra Desireeus [facility] Start: 05-03-2022 End: 05-04-[address] PINKY BISHOP Facility:[facility] Start: 04-18-2022 End: 04-19-[address] PINKY BISHOP Facility:[facility] Start: 03-22-2022 End: 03-23-[address] HIGINIO FLANAGAN Facility:[facility] Start: 03-20-2022 (DM) Diabetes Tondra Mapus [facility] Start: 03-20-2022 End: 03-20-2022 ambulatory Tondra Mapus [facility] [employer] Other Start: 03-12-2022 End: 03-13-2022 Evaluation and management of inpatient DR PARUL CHU Facility:[facility] Start: 03-09-2022 End: 03-10-[address] SHANNON LANDIS Facility:[facility] Start: 03-02-2022 End: 03-03-[address] HARLEY CRESPO Facility:[facility] Start: 02-19-2022 End: 02-19-2022 ambulatory Tondra Mapus Other [employer] Other Start: 02-19-2022 Telephone encounter Tondra Mapus [facility] Start: 02-08-2022 End: 02-08-2022 ambulatory Tondra Mapus Other [employer] Other Start: 02-08-2022 Telephone encounter Tondra Mapus [facility] Start: 01-15-2022 End: 01-17-2022 Evaluation and management of inpatient DO Harley Crespo Work Phone: [facility] Start: 01-15-2022 End: 01-15-[address] HARLEY CRESPO Facility:[facility] Start: 12-18-2021 Registered Recurring DO Zamudio in [place] Work Phone: [facility] Start: 12-18-2021 (DM) Diabetes Tondra Mapus [facility] Start: 12-18-2021 End: 12-18-2021 ambulatory Tondra Mapus [facility] [employer] Other Start: 12-08-2021 End: 12-09-[address] HARLEY CRESPO Facility:[facility] Start: 11-30-2021 End: 12-01-2021 ambulatory KINGSLEY GOLDENR Facility:[facility] Start: 11-24-2021 End: 11-25-[address] HARLEY CRESPO Facility:[facility] Start: 11-16-2021 End: 11-16-2021 ambulatory Tondra Mapus Other [employer] Other Start: 11-16-2021 Telephone encounter Tondra Mapus [facility] Start: 2021 End: 2021 ambulatory Tondra Mapus Other [employer] Other Start: 2021 Telephone encounter Tondra Mapus [facility] Start: 10-31-2021 End: 10-31-2021 ambulatory Tondra Mapus Other [employer] Other Start: 10-31-2021 Telephone encounter Tondra Mapus [facility] Start: 10-27-2021 End: 10-27-2021 ambulatory [...] 07-24-2021 End: 07-24-2021 ambulatory Tondra Mapus Other [employer] Other Start: 07-24-2021 Telephone encounter Tondra Mapus [facility] Start: 07-17-2021 (DM) Diabetes Tondra Mapus [facility] Start: 07-17-2021 End: 07-17-2021 ambulatory Tondra Mapus Other [employer] Other Start: 06-19-2021 End: 06-19-2021 ambulatory Shannon Escobar Other [employer] Other Start: 06-19-2021 Telephone encounter Shannon Escobar [facility] Start: 06-06-2021 End: 06-06-2021 ambulatory Kingsley Latisha Other [employer] Other Start: 06-06-2021 Office outpatient vi sit 25 minutes Kingsley Latisha [facility] Start: 05-22-2021 End: 05-22-2021 ambulatory Tondra Mapus Other [employer] Other Start: 05-22-2021 Telephone encounter Tondra Mapus [facility] Start: 05-16-2021 End: 05-16-2021 ambulatory Tondra Mapus Other [employer] Other Start: 05-16-2021 Telephone encounter Tondra Mapus [facility] Start: 04-10-2021 (DM) Diabetes Tondra Mapus [facility] Start: 04-10-2021 End: 04-10-2021 ambulatory Tondra Mapus Other [employer] Other Start: 04-10-2021 Telephone encounter Tondra Mapus [facility] Start: 02-14-2021 End: 02-14-2021 ambulatory Kingsley Latisha Other [employer] Other Start: 02-14-2021 Patient encounter procedure Kingsley Latisha [facility] Start: 02-14-2021 Telephone encounter Tondra Mapus [facility] Start: 01-03-2021 (DM) Diabetes Arlen Kwong [facility] Start: 10-14-2018 End: 10-15-2018 Patient encounter procedure PINKY BISHOP Facility:[facility] Start: 02-24-2018 End: 02-25-2018 Evaluation and management of inpatient PINKY BISHOP Facility:[facility] Procedures Date Procedure Procedure Detail Performing [...] disease Jason LARKIN Pacemaker care management Jaron oly LARKIN Percutaneous coronary intervention Gagan DAVID Comment on above: stent/vein graft Plan of Treatment Date Care Activity Detail Author Start: 07-11-2031 Screening for malign ant neoplasm of colon [facility] Start: 09-24-2024 End: 09-24-2024 Patient encounter procedure 09/24/2024 8:40 AM EDT Office Visit [facility] [address] [facility] [address] [place] [address] Kenneth Tavera DPM [address] [facility] [address] [place] [address] Diabetes 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, without long-term current use of insulin (HCC) (Primary Dx); Pain due to onychomycosis of toenails of both feet; Xerosis cutis [facility] Comment on above: 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, without long-term current use of insulin (HCC) (Primary Dx); Pain due to onychomycosis of toenails of both feet; Xerosis cutis Start: 08-27-2024 Urine culture [facility] Start: 07-27-2024 Patient referral [facility] Work Phone: Start: 07-14-2024 Patient referral [facility] Work Phone: Start: 07-07-2024 Urine culture [facility] Start: 06-11-2024 End: 06-11-2024 Patient encounter procedure 06/11/2024 11:50 AM EDT Office Visit [facility] [address] [place] [address] Kenneth Tavera DPM [address] [facility] [address] [place] [address] [facility] Start: 04-02-2024 End: 04-02-2024 Patient encounter procedure [facility] Comment on above: 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, without long-term current use of insulin (CMS/HCC) (Primary Dx); Pain due to onychomycosis of toenails of both feet Start: 01-23-2024 End: 01-23-2024 Patient encounter procedure 01/23/2024 11:30 AM EDT Office Visit [facility] [address] [facility] [address] [place] [address] Kenneth Tavera DPM [address] [address] Diabetes mellitus due to underlying condition with [...] feet Start: 10-26-2023 DIABETES SCREEN DIABETES SCREEN [facility] Start: 10-17-2023 Patient referral [facility] Work Phone: Start: 08-16-2023 Screening for malign ant neoplasm of colon FIT-DNA [facility] Start: 01-17-2022 [facility] Start: 01-17-2022 Radionuclide myocard ial perfusion stress study NM rachel perf SPECT rest & str [facility] Start: 01-17-2022 Referral to cardiac rehabilitation program [facility] Start: 01-16-2022 Hospital admission [facility] Start: 01-15-2022 Hospital admission [facility] Start: 11-30-2021 Influenza vaccination INFLUENZA (#1) [facility] Start: 10-24-2021 End: 12-24-2021 CBC W Auto Differential panel - Blood CBC + DIFF Lab Routine Monoclonal gammopathy Expected: 10/24/2021, Expires: 12/24/2021 [facility] Work Phone: Comment on above: Expected: 10/24/2021 , Expires: 12/24/2021 Start: 04-25-2021 Adult depression screening assessment DEPRESSION SCREENING [facility] Start: 04-01-2021 ADVANCE DIRECTIVE DISCUSSION ADVANCE DIRECTIVE DISCUSSION [facility] Start: 11-21-2020 COVID-19 VACCINE (3 - Booster for Pfizer series) COVID-19 VACCINE (3 - Booster for Pfizer series) [facility] Start: 11-07-2001 SHINGRIX VACCINE (1 of 2) SHINGRIX VACCINE (1 of 2) [facility] Start: 11-07-1996 COLOGUARD (FIT-DNA) COLOGUARD (FIT-D NA) [facility] Start: 11-07-1996 Colonoscopy COLONOSCOPY [facility] Start: 11-07-1996 COLORECTAL CANCER SCREENING COLORECTAL CANCER SCREENING [facility] Start: 11-07-[address] COLONOGRAPHY [facility] Start: 11-07-1996 FECAL OCCULT BLOOD FECAL OCCULT BLOO D [facility] Start: 11-07-1996 SIGMOIDOSCOPY SIGMOIDOSCOPY [facility] Start: 11-07-1986 LIPID SCREEN LIPID SCREEN [facility] Start: 11-07-1970 Urine microalbumin profile DTAP,TDAP,TD (1 - Tdap) [facility] Start: 11-07-1969 HEPATITIS C SCREENING HEPATITIS C SC APURVA [facility] Start: 1950 ABDOMINAL AORTIC ANEURYSM SCREENING ABDOMINAL AORTIC ANEURYSM SCREENING [facility] Start: 1950 Screening for malign ant neoplasm of colon [facility] Comprehensive metabo lic 1999 panel - Serum or Plasma [facility] Comprehensive metabo lic 1999 panel - Serum or Plasma [facility] CT Abdomen and Pelvi s WO contrast [facility] CT Abdomen and Pelvi s WO contrast [facility] Patient Education [facility] Work Phone: Patient referral [facility] Work Phone: Renal function 1999 panel - Serum or Plasma [facility] Renal function 1999 panel - Serum or Plasma [facility] Renal function 1999 panel - Serum or Plasma [facility] Urine culture [facility] Immunizations Immunization Date Immunization Notes Care Provider Poli patel 12-12-2023 influenza virus vaccine, unspecified formulation Jason CHAYA [facility] 12-12-2023 influenza, high dose seasonal, preservative-free [facility] 12-13-2022 influenza, high dose seasonal, preservative-free Denita Chairez Other [employer] [facility] [employer] Other 12-13-2022 influenza virus vaccine, unspecified formulation DO Harley Crespo Work Phone: [facility] 12-15-2021 influenza virus vaccine, unspecified formulation DO Harley Crespo Work Phone: [facility] 12-15-2021 influenza, high dose seasonal, preservative-free Harley Crespo Other [employer] [facility] [employer] Other 02-21-2021 COVID-19 mRNA, Comirnaty (Pfizer) DO Harley Crespo Work Phone: [facility] 06-21-2020 COVID-19 Vaccine Pfi zer - Documentation Purposes Only Arlen Kwong Other [facility] 05-30-2020 COVID-19 Vaccine Pfi zer - Documentation Purposes Only Arlen Kwong Other [facility] 01-17-2018 influenza virus vaccine, unspecified formulation Jason LARKIN [facility] 01-17-2018 pneumococcal polysaccharide vaccine, 23 valent Abdon Walker MD Work Phone: [facility] 01-17-2018 Seasonal trivalent influenza vaccine, adjuvanted, preservative free Abdon Walker MD Work Phone: [facility] 01-16-2017 influenza virus vaccine, unspecified formulation Jason LARKIN [facility] 01-16-2017 influenza, high dose seasonal, preservative-free Abdon Walker MD Work Phone: [facility] 11-30-2016 influenza virus vaccine, unspecified formulation Jason LARKIN [facility] 11-30-2016 influenza, injectabl e, quadrivalent, preservative free Abdon Walker MD Work Phone: [facility] 11-14-2016 pneumococcal conjuga te vaccine, 13 valent Abdon Walker MD Work Phone: [facility] 04-02-2016 pneumococcal polysaccharide vaccine, 23 valent Arlen Kwong Other [facility] 01-23-2012 influenza virus vaccine, unspecified formulation Jason LARKIN [facility] 01-23-2012 influenza, seasonal, injectable Abdon Walker MD Work Phone: [facility] 12-13-2010 influenza virus vaccine, unspecified formulation Jason LARKIN [facility] 12-13-2010 influenza, seasonal, injectable Abdon Walker MD Work Phone: [facility] 01-27-2009 novel [id number], preservative-free, injectable Abdon Walker MD Work Phone: [facility] 01-19-2008 influenza virus vaccine, whole virus Abdon Walker MD Work Phone: [facility] 01-19-2008 influenza, whole Jason EZ ERS [facility] Payers Date Payer Category Payer Self-pay [id number] 2021 Unknown [id number] 2021 Private Health Insurance [employer] [id number] 2019 Unknown MMO MMO MEDICARE SUPPLEMENT [id number] 2019-Present [phone] [address] [place] [address] Indemnity [id number] 2016 Medicare MEDICARE MEDICAR E A AND B [id number] 2016-Present [phone] [address] [address] [place] [address] Medicare [id number]. [id number] 2016 Medicare [id number]. [id number] 1959 Medicare [id number] 1959 Unknown [id number] 2.16.840.1.824550.19 1951 Unknown [id number] 2.16.840.1.587617.3.579.2. 647 1951 Unknown [id number] 2.16.840.1.517361.3.579.2. 647 1951 Unknown [id number] 2.16.840.1.532813.3.579.2. 593 1951 Unknown [id number] 2.16.840.1.520680.3.579.2. 593 1951 Unknown [id number] 2.16.840.1.997456.3.579.2. 593 1951 Unknown [id number] 2.16.840.1.525881.3.579.2. 593 1951 Unknown [id number] 2.16.840.1.527857.3.579.2. 593 1951 Unknown [id number] 2.16.840.1.348747.3.579.2. 593 1951 Unknown [id number] 2.16.840.1.142642.3.579.2. 593 1951 Unknown [id number] 2.16.840.1.399699.3.579.2. 593 1951 Unknown [id number] 2.16.840.1.657928.3.579.2. 593 1951 Unknown [id number] 2.16.840.1.968965.3.579.2. 593 1951 Unknown [id number] 2.16.840.1.304216.3.579.2. 593 1951 Unknown [id number] 2.16.840.1.435081.3.579.2. 593 1951 Unknown [id number] 2.16.840.1.288035.3.579.2. 593 1951 Unknown [id number] 2.16.840.1.001192.3.579.2. 593 1951 Unknown [id number] 2.16.840.1.949687.3.579.2. 593 1951 Unknown [id number] 2.16.840.1.717823.3.579.2. 593 1951 Unknown [id number] 2.16.840.1.178075.3.579.2. 593 1951 Unknown [id number] 2.16.840.1.128044.3.579.2. 593 1951 Unknown [id number] 2.16.840.1.766663.3.579.2. 727 1951 Unknown [id number] 2.16.840.1.608960.3.579.2. 727 1951 Unknown [id number] 2.16.840.1.915012.3.579.2. 727 1951 Unknown [id number] 2.16.840.1.401689.3.579.2. 1259 1951 Unknown [id number] 2.16.840.1.262429.3.579.2. 1259 1951 Unknown [id number] 2.16.840.1.339926.3.579.2. 1259 1951 Unknown [id number] 2.16.840.1.724300.3.579.2. 1259 1951 Unknown [id number] 2.16.840.1.924822.3.579.2. 1259 Unknown [id number] Unknown HCAP/HFA/FAP Active [id number] Unknown HCAP/HFA/FAP Active [id number] Unknown [id number] 2.16.840.1.361484.3.579.2. 531 Unknown [id number] 2.16.840.1.366875.3.579.2. 531 Unknown [id number] 2.16.840.1.511269.3.579.2. 531 Unknown [id number] 2.16.840.1.543609.3.579.2. 531 Social History Date Type Detail Facility Unknown if ever smoked [employer] Other Start: 11-07-2023 End: 06-18-2024 Sex Assigned At [employer] Other Start: 09-29-2021 End: 05-28-2024 Tobacco smoking status Ex-smoker (finding) [facility] Tobacco smoking status Never [facility] Start: 07-23-2018 End: 10-12-2022 Tobacco use and exposure Smokeless tobacco non-user [facility] Start: 10-25-2020 Alcohol intake Ex-drinker (finding) [facility] Start: 1950 Sex Assigned At Not on file [facility] Start: 1950 Sex Assigned At Male F [facility] Start: 10-12-2022 Tobacco smoking stat us NHIS Never smoked tobacco [facility] Start: 11-07-2023 End: 09-24-2024 Alcoholic beverage intake Defer [facility] Start: 11-07-2023 End: 06-18-2024 History of Social function [facility] Start: 04-30-2024 End: 08-28-2024 Sex Male (finding) [facility] Sexual Orientation [facility] Medical Equipment Procedure Code Equipment Code [...] Assessment Result Facility 08-04-2024 Functional Status N/A [facility] 01-17-2022 Functional status Patient at Baseline [facility] Work Phone: 09-29-2021 Functional Status N/A [facility] Mental Status Date Assessment Result Facility 01-17-2022 Cognitive function Cognitive Sta tus Patient at Baseline [facility] Work Phone: Clinical Notes 01-03-2021 to 10-08-2024 Kenneth Tavera, JULES - 09/24/2024 8:40 AM EDT Note Date & Type Note Facility 10-08-[address] [facility] Note Chief Complaint: Patient here for 2 month follow up . Patient states he has been feeling rough. Patient states he had and ID in July then diagnosed with cancer in [...] mildly elevated troponin. Patient was transferred to [facility] for further evaluation and treatment. Of [...] defibrillator procedure, and Third degree heart block (CMS/[facility]). Surgical History He has a past [...] , Rfl: clopidogrel (Plavix) 75 mg tablet, (more content not included)... [facility] 10-06-2024 Note Patient was here tod ay for a void trial after having a [...] go to the ER. Patient verbalized understanding. [facility] 09-29-2024 Note Patient: Lani Quintanilla ed Procedure Summary Date: 09/29/24 Room / Location: [facility] OPERATING ROOM 07 / [facility] Operating Room Anesthesia Start: 1337 Anesthesia Stop: 1500 Procedure: TURBT (TRANSURETHRAL RESECTION OF BLADDER TUMOR) Diagnosis: Lesion of bladder (Lesion of bladder [N32.9]) Surgeons: Last Mcmanus MD Responsible Provider: Dorcas Dang MD Anesthesia Type: general ASA Status: 3 Anesthesia Type: general Vitals Value Taken Time BP 147/61 09/29/24 20:43 Temp 36 ???C (96.8 ???F) 09/29/24 18:30 Pulse 90 09/29/24 20:46 Resp [...] no known notable events for this encounter. [facility] 09-29-2024 Note Satisfactory for dominic luation. Examination of the ThinPrep slide reveals atypical cells, urothelial cells, abundant acute inflammation, blood, fungal spores consistent with Coretta species and debris. [facility] Comment on above: Order Comment: Pre-o p diagnosis:Lesion of bladder [N32.9] Performed By: #### L [id number] ####[facility] ([facility]AKER)[address] [place] [address] 09-29-2024 Note Spinal Block Patient location during procedure: OR Start time: 09/29/2024 1:45 PM End time: 09/29/2024 1:55 PM Reason for block: primary anesthetic Staffing Performed: resident/PEDIATRIC ANESTHESIOLOGIST/CAA Anesthesiologist: Dorcas Dang MD Resident/PEDIATRIC ANESTHESIOLOGIST: Mirela Devlin MD Performed by: Mirela Devlin [...] tolerated procedure well with no immediate complications [facility] 09-29-2024 Note Patient: Lani Quintanilla ed Procedure Information Date/Time: 09/29/24 1230 Procedure: TURBT (TRANSURETHRAL RESECTION OF BLADDER TUMOR) Location: [facility] OPERATING ROOM 07 / [facility] Operating Room Surgeons: Last Mcmanus MD Relevant Problems Cardio (+) AV block, 3rd degree (CMS/HCC) (+) Angina at rest (+) Carotid stenosis, asymptomatic (+) Coronary artery disease involving [place] coronary artery of [place] heart (+) Essential hypertension (+) NSTEMI (non-ST elevated myocardial infarction) ([facility]) (+) Stenosis of abdominal aorta Endo (+) Type 1 diabetes mellitus ([facility]/HCC) (+) Type 2 diabetes mellitus with hyperglycemia ([facility]) (+) Type 2 diabetes mellitus without complication, with long-term current use of insulin ([facility]) GI (+) Gastroesophageal reflux disease /Renal (+) Chronic kidney disease Circulatory (+) HFrEF (heart failure with reduced ejection fraction) ([facility]) (+) History of coronary artery bypass surgery Clinical information reviewed: Allergies Meds Med Hx Surg Hx Surgical History[1] Medical History[2] Medication Documentation Review Audit Reviewed by Judy Avila, RN (Registered Nurse) on 09/29/24 at 1059 Medication Order Taking? Sig Documenting Provider Last Dose Status ALPRAZolam (Xanax) 0.5 mg tablet [id number] Yes Take 1 tablet by mouth in the morning, afternoon, and at bedtime. Racquel Marcelo MD 09/29/2024 Active amLODIPine (Norvasc) 5 mg tablet [id number] Yes Take 1 tablet (5 mg) by mouth in the morning. Pinky Bishop MD 09/29/2024 Active aspirin 81 mg chewable tablet [id number] Yes Chew 1 tablet every day by oral route. Racquel ProviderMD Past Week Active cholecalciferol (Vitamin D3) 25 MCG (1000 units) tablet [id number] Yes Take 1,000 Units by mouth in the morning. Racquel Marcelo MD 09/28/2024 Active clopidogrel (Plavix) 75 mg tablet [id number] Yes Take 1 tablet by mouth in the morning. Racquel ProviderMD Past Week Active docusate sodium (Colace) 100 mg capsule [id number] Yes Take 100 mg by mouth in the morning. Racquel Marcelo MD 09/28/2024 Active empagliflozin (Jardiance) 10 mg [id number] Yes Take 1 tablet every day by oral route. Racquel Marcelo MD 09/29/2024 Active insulin aspart (NovoLOG) 100 unit/mL injection vial [id number] Yes Inject 10 Units under the skin with breakfast, with lunch, and with evening meal. Sliding scale Racquel Marcelo MD 09/28/2024 Active insulin degludec (TRESIBA FLEXTOUCH U-100 SUBQ) [id number] Yes Inject 15 Units under the skin in the morning. Racquel Marcelo MD 09/29/2024 Active insulin detemir (Levemir) 100 unit/mL injection [id number] Yes Inject 5 Units under the skin two times daily. SLIDING SCALE Racquel Marcelo MD 09/29/2024 Active isosorbide mononitrate ER (Imdur) 60 mg 24 hr tablet [id number] Take 1 tablet (60 mg) by mouth 2 times daily. Carlos A Duarte MD 08/20/24 3605 levoFLOXacin (Levaquin) 250 mg tablet [id number] Yes Racquel Marcelo MD 09/29/2024 Active metoprolol succinate XL (Toprol-XL) 50 mg 24 hr tablet [id number] Take 3 tablets (150 mg) by mouth in the morning for 97 doses. Do not crush or chew. Aramis Sellers MD 08/20/24 2359 nitroglycerin (Nitrostat) 0.4 mg SL tablet [id number] No PLACE 1 TABLET UNDER TONGUE EVERY 5 MINS, UP TO 3 DOSES NEEDED FOR CHEST PAIN Patient not taking: Reported on 09/29/2024 Pinky Bishop MD More than a month Active pantoprazole (ProtoNix) 40 mg EC tablet [id number] Yes TAKE 1 TABLET BY MOUTH DAILY ON AN EMPTY STOMACH FOLLOWED BY BREAKFAST 30 MINUTES AFTER Historical ProviderMD 09/29/2024 Active ranolazine (Ranexa) 500 mg 12 hr tablet [id number] Yes Take 1 tablet (500 mg) by mouth two times daily. Do not crush, chew, or split. Pinky Bishop MD 09/29/2024 Active rosuvastatin (Crestor) 40 mg tablet [id number] Yes TAKE 1 TABLET BY MOUTH AT BEDTIME Kevin Arteaga MD 09/29/2024 Active spironolactone (Aldactone) 25 mg tablet [id number] Yes Take 1 tablet (25 mg) by mouth in the morning. Pinky Bishop MD 09/29/2024 Active thiamine (Vitamin B-1) 100 mg tablet [id number] Yes Take 100 mg by mouth every other day. Historical ProviderMD 09/28/2024 Active thiamine (Vitamin B-1) 250 mg tablet [id number] Yes Take 250 mg by mouth every other day. Historical ProviderMD 09/28/2024 Active Allergies[3] Lab Results Component Value [...] 1.10 08/28/2024 INR 1.17 (H) 02/13/2024 INR (more content not included)... [facility] 09-29-2024 Note H&P reviewed. The jaron mark was examined and there are no changes to the H&P. [facility] 09-24-2024 History of Present illness Narrative Patient: [...] Date Diabetic retinopathy (HCC) HTN (hypertension) Hypercholesteremia ID (myocardial infarction) (HCC) 2021 Two total: 02/20, [...] in the morning., Disp: , Rfl: HYDROcodone-acetaminophen ([place]) 5-325 MG tablet, TAKE 1 TABLET BY [...] Strain: Low Risk (08/13/2024) Received from [facility] Overall Financial Resource Strain (CARDIA) Difficulty of Paying Living Expenses: Not hard at all Food Insecurity: No Food Insecurity (08/13/2024) Received from [facility] Hunger Vital Sign Within the past 12 months, you worried that your food would run out before you got the money to buy more.: Never true Ran Out of Food in the Last Year: Not on file Transportation Needs: No Transportation Needs (08/13/2024) Received from [facility] Transportation In the past 12 months, has lack of transportation kept you from medical appointments or from getting medications?: No Lack of Transportation (Non-Medical): Not on file Physical Activity: Not on file Stress: Not on file Social Connections: Not on file Intimate Partner Violence: Unknown (08/13/2024) Received from [facility] Humiliation, Afraid, Rape, and Kick questionnaire Fear of Current or Ex-Partner: No Emotionally Abused: Not on file Physically Abused: Not on file Sexually Abused: Not on file Housing Stability: Low Risk (08/13/2024) Received from [facility] Housing Stability Vital Sign In the last 12 months, was there a time when you were not able to pay the mortgage or rent on time?: No Number of Times Moved in the Last Year: Not on file At any time in the past 12 months, were you homeless or living in a alf (including now)?: No ROS: General: denies fever, [...] and negative PT pedal pulses NEURO: 5.07 [place]un monofilament test diminished to digits and [...] Kenneth Tavera DPM documented in this encounter [facility] 08-28-2024 Note [facility] Department of Urology Clinic CONSULTATION Reason [...] significant pain. He was therefore referred to [place] [facility] where he underwent a cystoscopy with [...] Needs: No Tr (more content not included)... [facility] 08-20-[address] [facility] Cardiology Clinic Note Chief Complaint: Patient here for follow up [facility] for an ID and bladder surgery clearance. [...] mildly elevated troponin. Patient was transferred to [facility] for further evaluation and treatment. Of [...] , Rfl: isosor (more content not included)... [facility] 08-14-2024 Note Hospital Medicine Discharge Summary Final [...] mildly elevated troponin. Patient was transferred to [facility] for further evaluation and treatment. Of [...] Invasive or Diagnostic Procedures Done During Admission: Richard stress test Consultations During Admission: Cardiology Dear DO Crespo Thomas is advised to follow up with you within 1-2 weeks. Items to follow up in ambulatory setting: Patient will need to follow-up with cardiology in 1 week for consideration for cardiac cath Follow-up with: Cardiology Scheduled appointments: Future Appointments Date Time Provider Department Center 08/20/2024 9:45 AM Pinky Bishop MD [facility] 08/28/2024 8:30 AM Last Mcmanus MD [facility] URO Second Fl Your medication list [...] medications were sent to [facility] - [place], [place] - [address], [facility] [address] amLODIPine 5 mg tablet Lani has No Known Allergies. Disposition: Home or Self Care () Discharge Condition: Stable Code Status: Prior Diagnostic Results Hematology: Results from last 7 days Lab Units 08/13/24 1421 WBC AUTO 10*3/uL 7.62 HEMOGLOBIN g/dL 13.1 HEMATOCRIT % 39.8 MCV fL 89.0 PLATELETS AUTO 10*3/uL 201 Chemistry: Results from last 7 days Lab Units (more content not included)... [facility] 08-14-2024 Note Adult Nutrition Asse ssment: Name: [...] of Nutrition and Dietetics (AND) and the [place] Society of Enteral and Parenteral Nutrition (ASPEN). [...] difference between simp (more content not included)... [facility] 08-14-2024 Note 08/14/24 1204 Admission Assessment Questions [...] Status Interested Does the patient have a manager case assigned to them through their insurance? No [...] to send link and activate MyChart? No [facility] 08-14-2024 Note Attestation signed by Tatianna Urrutia MD at 08/14/2024 5:03 PM (Updated) [...] see Dr. Bishop, do cardiac rehab at [place] and if he has uncontrolled chest pain [...] Graeme Sorensen MD, 100 mg at 08/13/24 155 heparin (porcine) injection 5,000 Units, 5,000 Units, subcutaneous, q12h RICARDA, Graeme Sorensen MD, 5,000 Units at 08/13/24 220 insulin glargine (Lantus) injection vial 5 Units, [...] Graeme Sorensen MD, 500 mg at 08/13/24 220 rosuvastatin (Crestor) tablet 40 mg, 40 mg, oral, Nightly, Graeme Sorensen MD, 40 mg at 08/13/24 220 spironolactone (Aldactone) tablet 25 mg, 25 mg, [...] edema. Left lower (more content not included)... [facility] 08-13-2024 Note Recent cystoscopy fo akil urology CODE STATUS full code [facility] 08-13-2024 Note On antiplatelet agen t watch for hematuria and follow [facility] 08-13-2024 Note As above [facility] 08-13-2024 Note Decongestive breath/ guideline directed medical therapy limited because of renal function watch creatinine electrolytes especially potassium intake and output [facility] 08-13-2024 [facility] Avoid hypovolemia an d nephrotoxic meds hold lisinopril since patient on Aldactone watch potassium electrolyte creatinine renal function consider nephrology consult [facility] 08-13-2024 Note Chest pain-free, cyc le troponin telemetry continue statin aspirin nitrates beta-jason watch for hypotension and bradycardia cardiology to see patient [facility] 08-13-2024 Note Hospital Medicine History and Physical 08/13/2024 1:16 PM THE HOSPITALIST TEAM PREFERS TO USE [employer] FOR NON-URGENT COMMUNICATION 7AM-7PM. IF I DO NOT RESPOND WITHIN 20 MINUTES OR URGENT MATTERS, PLEASE CALL THROUGH THE POLICE AIDE. FROM 7PM-7AM, PLEASE PAGE [phone](COVR). Chief Complaint No chief complaint on file. History of Present Illness Lani Lizama is an 73 y.o. male 73 years old white male transferred from [facility] with intermittent chest pain anterior chest radiating [...] basal and postprandial insulin. His labs from [facility] reveals patient having chronic kidney disease stage [...] HFrEF (heart failure with reduced ejection fraction) ([facility]) Decongestive breath/guideline directed medical therapy limited because of renal function watch creatinine electrolytes especially potassium intake and output Coronary artery disease involving [place] coronary artery of [place] heart As above Chronic kidney disease Avoid hypovolemia and nephrotoxic meds hold lisinopril since patient on Aldactone watch potassium electrolyte creatinine renal function consider nephrology consult Type 2 diabetes mellitus without complication, with long-term current use of insulin ([facility]) Insulin blood sugar check diet Angina at rest As above Gross hematuria On antiplatelet agent watch for hematuria and follow Bladder cancer ([facility]) Recent cystoscopy follows urology CODE STATUS full code VTE Prophylaxis: Heparin subcutaneous watch for bleed ----- Focus of this inpatient stay will remain on problems that need acute care setting for care. We will review available studies and will order additional labs, imaging and other studies as appropriate. As need (more content not included)... [facility] 08-04-2024 Hospital Discharge instructions Patient Education 08/04/2024 [...] Up Care 08/03/2024 14:29:05 With:Jason LARKIN Address: [address] [place], [place] [id number] [facility] (1) When: Unknown Comments:Office will call to schedule follow up [facility] 08-04-2024 Note Patient Education Custom Cystoscopy [...] a fever over 100 degrees. [facility] 08-03-2024 Note Patient Education Urology Cystoscopy Cystoscopy [...] including vitamins, herbs, eye drops, creams, and rszr-vvm-ozdezor medicines. ??? Any problems you or family [...] tells you to take them. ??? Taking valp-xcd-nahytaz medicines, vitamins, herbs, and supplements. Tests You [...] these instructions at home: Medicines ??? Take jdkr-fiw-upqhyap and prescription medicines only as told by [...] your (more content not included)... [facility] 07-14-2024 Evaluation note Diagnosis Onset Date Resolution [...] HLD (hyperlipidemia) deleted August 03, 2024 9:17am [facility] Work Phone: 1(918) 523-394604-15-2025 Evaluation note* Diagnosis Onset Date Resolution Status [...] diabetic retinopathy acute August 25, 2024 11:31am [facility] Work Phone: 1(505) 354-881901-30-2025 Evaluation note* Diagnosis Onset Date Resolution Status Admit Date BMI 28.0-28.9,adult acute Janua ry 2024 9:21am Dietary counseling and surveillance [...] h hyperglycemia acute July 27, 2024 11:19am [facility] Work Phone: 1(387) 844-330601-16-2025 Evaluation note* Diagnosis Onset Date Resolution Status Admit Date Chronic HFrEF (heart failure with reduced ejection fraction) acute 2024 8:19am Chronic kidney disease acute [place] 2024 8:19am HTN (hypertension) acute 2024 8:19am [...] 9:21am HLD (hyperlipidemia) deleted 2024 9:21am [facility] Work Phone: 1(598) 781-877301-16-2025 Evaluation note* Diagnosis Onset Date Resolution Status Admit Date Chronic HFrEF (heart failure with reduced ejection fraction) acute 2024 8:19am Chronic kidney disease acute 2024 8:19am HTN (hypertension) acute 2024 8:19am [...] HLD (hyperlipidemia) deleted [place] 2024 9:21am Chronic HFrEF (heart failure with [...] kidney disease acute July 14, 2024 9:36am [facility] Work Phone: 1(378) 727-842201-02-2025 History of Present illness Narrative* Kenneth Tavera, [...] Reactions Other Other Reaction(s): Unknown Received name: Alfonsoda Past Medical History: Past Medical History: Diagnosis [...] in the morning., Disp: , Rfl: HYDROcodone-acetaminophen ([place]) 5-325 MG tablet, TAKE 1 TABLET BY [...] Strain: Low Risk (02/13/2024) Received from [facility] Overall Financial Resource Strain (CARDIA) Difficulty of Paying Living Expenses: Not very hard Food Insecurity: No Food Insecurity (02/13/2024) Received from [facility] Hunger Vital Sign Within the past 12 months, you worried that your food would run out before you got the money to buymore.: Never true Ran Out of Food in the Last Year: Not on file Transportation Needs: No Transportation Needs (02/13/2024) Received from [facility] Transportation In the past 12 months, has lack of transportation kept you from medical appointments or from getting medications?: No Lack of Transportation (Non-Medical): Not on file Physical Activity: Not on file Stress: Not on file Social Connections: Not on file Intimate Partner Violence: Unknown (02/13/2024) Received from [facility] Humiliation, Afraid, Rape, and Kick questionnaire Fear of Current or Ex-Partner: No Emotionally Abused: Not on file Physically Abused: Not on file Sexually Abused: Not on file Housing Stability: Low Risk (02/13/2024) Received from [facility] Housing Stability Vital Sign In the last 12 months, was there a time when you were not able to pay the mortgage or rent on time?: No Number of Times Moved in the Last Year: Not on file At any time in the past 12 months, were you homeless or living in a alf (including now)?: No ROS: General: denies fever, [...] and negative PT pedal pulses NEURO: 5.07 [place]un monofilament test diminished to digits and forefoot bilaterally 125Hz tuning fork diminished to 1st MPJ bilaterally ORTHO: Positive pain on palpation to nails 1 through 10 ASSESSMENT 1. Diabetes 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, without long-term current use of insulin ([facility]) 2. Pain due to onychomycosis of [...] him Kenneth Tavera DPM [id number] NoteUT Cardiology Consult Note Reason for visit: Complete heart block on event monitor, HFrEF 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%, atrial tachycardia 03/10/24 Patient here for 5 mo follow up bradycardia, complete heart block s/p PPM per Dr. Bishop. He was also admitted to [facility] for NSTEMI last month. Underwent heart cath with Dr. Pena on 02/12. He was started on Ranexa and lisinopril was stopped. Denies chest pain, SOB, and palpitations. Gets lightheaded at times, but no syncopal episodes. 05/07/23 Patient is s/p BiV ICD. he feels much better and believes that he is gone from 4/0 to 7/10 with [employer]. patient has got good device threshold. he [...] and hypertension. He was recently admitted to [facility] for NSTEMI. Had inpatient stress test and heart cath. Denies SOB but still having chest pain and has taken nitroglycerin a few times for relief. Had CT chest last week s/p discharge. Cardiac catheterization revealed patent bypass grafts and worsening karluk vessel disease. Medications were adjusted. I had [...] vascular disease) (CMS/HCC) Third degree heart block ([facility]) PSH: Past Surgical History: Procedure Laterality Date CARDIAC CATHETERIZATION 07/12/2020 CARDIAC CATHETERIZATION 10/15/2018 CARDIAC CATHETERIZATION 02/24/2018 CARDIAC CATHETERIZATION 09/27/2015 CORONARY ARTERY BYPASS GRAFT CORONARY STENT PLACEMENT SH: Social Determinants of Health Tobacco Use: Low Risk (01/23/2024) Received from [facility] [employer], [facility] Patient History Smoking Tobacco Use: Never Smokeless Tobacco Use: Never Passive Exposure: Not on file Alcohol Use: Not At Risk (03/13/2018) Received from [employer] [facility] Frequency of Alcohol Consumption: Never Average [...] Abused: Not on f (more content not included)...[facility]11-25-2024 Evaluation note* Diagnosis Onset Date Resolution Status [...] 2024 9:21am HLD (hyperlipidemia) deleted 2024 9:21am [facility] Work Phone: 1([phone]) 360-651611-15-2024 NoteHospital Medicine Discharge Summary Final Discharge Diagnosis: [...] y.o. male who came from Transferred from [facility] with NSTEMI with NSTEMI. 71-year-old gentleman with [...] procedure on that. Patient was transferred from [facility] to [facility] where he was seen for chest pain that has been going on for most of the day causing him to take nitroglycerin on 5 separate incidences and with intensification of the chest pain at shortening intervals that caused him to call the ambulance. At [facility] workup did show that patient had rising troponins initial 1 was 23 and then 85 isa intensity troponin. There was no mention change on the EKG as was reported to me by the ER physician Dr. Lagos at [facility]. Other workup that was done at [facility] included basic metabolic panel that showed a [...] history as above. The ER physician from [facility] had spoken to our bakery decorator here who accepted the patient for transfer to [facility] for possible trip to [place] very early this morning depending on the [...] 40 mg tablet Commonly (more content not included)...[facility] 02-13-2024 NoteHospital Medicine Daily Progress Note - 02/13/2024 8:36 AM; Room: [address] [place] [address] Admission: 02/13/2024 2:53 AM; Length of stay: 0 days THE HOSPITALIST TEAM PREFERS TO USE [employer] FOR COMMUNICATION 7AM-7PM. IF I DO NOT RESPOND WITHIN 15 MINUTES, PLEASE PAGE ME/CALL THROUGH THE POLICE AIDE. FROM 7PM-7AM, PLEASE PAGE [phone](COVR) Code Status: Full Code Barriers to Discharge: NSTEMI Expected Discharge Date: 2-3 days Discharge Destination: home Overview Patient is seen for evaluation and management of chest pain. Subjective Patient was examined at bedside resting comfortably. He presented overnight to ED after transfer from [place]. He states that he had crushing chest [...] Principal Problem: NSTEMI (non-ST elevated myocardial infarction) ([facility]) Active Problems: Coronary atherosclerosis Essential hypertension History of coronary artery bypass surgery Mixed hyperlipidemia Stage 3 chronic kidney disease ([facility]) Chest pain Type 2 diabetes mellitus with hyperglycemia ([facility]) PVD (peripheral vascular disease) ([facility]) Carotid stenosis, asymptomatic Assessment and Plan Lnai Lizama is a 73 year old male with a past medical history of CAD with 9 stents, 5 vessel CABG, HTN, HLD, DM2, third degree AV block with pacemaker/AICD presented as a transfer from [place] ED with worsening crushing, radiating chest pain. Patient is being admitted to [facility] and cardiology has been consulted. Tentative [...] subcutaneous, Nightly isosorbide mononitra (more content not included)...[facility]11-14-2024 NoteHospital Medicine History and Physical 02/13/2024 3:40 AM THE HOSPITALIST TEAM PREFERS TO USE [employer] FOR NON-URGENT COMMUNICATION 7AM-7PM. IF I DO NOT RESPOND WITHIN 20 MINUTES OR URGENT MATTERS, PLEASE CALL THROUGH THE POLICE AIDE. FROM 7PM-7AM, PLEASE PAGE [phone](COVR). Chief Complaint No chief complaint on file. History of Present Illness Lani Lizama is an 73 y.o. male who came from Transferred from [facility] with NSTEMI with NSTEMI. 71-year-old gentleman with [...] procedure on that. Patient was transferred from [facility] to [facility] where he was seen for chest pain that has been going on for most of the day causing him to take nitroglycerin on 5 separate incidences and with intensification of the chest pain at shortening intervals that caused him to call the ambulance. At [facility] workup did show that patient had rising troponins initial 1 was 23 and then 85 isa intensity troponin. There was no mention change on the EKG as was reported to me by the ER physician Dr. Lagos at [facility]. Other workup that was done at [facility] included basic metabolic panel that showed a [...] history as above. The ER physician from [facility] had spoken to our bakery decorator here who accepted the patient for transfer to [facility] for possible trip to [place] very early this morning depending on the [...] Principal Problem: NSTEMI (non-ST elevated myocardial infarction) ([facility]) Active Problems: Coronary atherosclerosis Essential hypertension History of coronary artery bypass surgery Mixed hyperlipidemia Stage 3 chronic kidney disease (CMS/HCC) Chest pain Type 2 diabetes mellitus with hyperglycemia (CMS/HCC) PVD (peripheral vascular disease) ([facility]/HCC) Carotid stenosis, asymptomatic Assessment and Plan PLAN OF CARE: 71-year-old gentleman with very profuse history of cardiovascular disease including prior CAD with stents and CABG as well as hypertension and HLD comes seen with acute NSTEMI. Patient is being admitted to [facility] and cardiology has been consulted with possible trip to the [place] at the earliest possible time by cardiology. [...] be -Consult cardiology (done) (more content not included)...[facility]10-24-2024 History of Present illness Narrative* Kenneth Tavera, [...] has only been using prescribed or recommended [id number] cream with some improvement. Patient also has [...] in the morning., Disp: , Rfl: HYDROcodone-acetaminophen ([place]) 5-325 MG tablet, TAKE 1 TABLET BY [...] Strain: Low Risk (09/26/2023) Received from [facility] Overall Financial Resource Strain (CARDIA) Difficulty of Paying Living Expenses: Not very hard Food Insecurity: No Food Insecurity (09/26/2023) Received from [facility] Hunger Vital Sign Within the past 12 months, you worried that your food would run out before you got the money to buymore.: Never true Ran Out of Food in the Last Year: Not on file Transportation Needs: No Transportation Needs (09/26/2023) Received from [facility] Transportation In the past 12 months, has lack of transportation kept you from medical appointments or from getting medications?: No Lack of Transportation (Non-Medical): Not on file Physical Activity: Not on file Stress: Not on file Social Connections: Not on file Intimate Partner Violence: Unknown (09/26/2023) Received from [facility] Humiliation, Afraid, Rape, and Kick questionnaire Fear of Current or Ex-Partner: No Emotionally Abused: Not on file Physically Abused: Not on file Sexually Abused: Not on file Housing Stability: Low Risk (09/26/2023) Received from [facility] Housing Stability Vital Sign Unable to [...] and negative PT pedal pulses NEURO: 5.07 [place] monofilament test diminished to digits and forefoot bilaterally 125Hz tuning fork diminished to 1st MPJ bilaterally ORTHO: Positive pain on palpation to nails 1 through 10 ASSESSMENT 1. Diabetes 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, without long-term current use of insulin ([facility]) 2. Pain due to onychomycosis of [...] him Kenneth Tavera DPM documented in this encounterMetropolitan [facility] [id number] Evaluation note* Encounter Date Diagnosis Assessment Notes Treatment Notes Treatment Clinical Notes Apr, Chronic HFrEF (heart failure with reduced ejection fraction) (ICD-10 - I50.22) [employer] Other 12-12-2023 Evaluation note* Encounter Date Diagnosis [...] PAP-Jardiance was denied, pt given information on [facility] instructed to apply order [...] hypertension material was printed on diony. Mar, halfway current use of insulin (ICD-10 - Z79.4) Mar, Hyperlipidemia (ICD-10 - E78.5) High cholesterol material was printed 05/2022 ldl 69- on statin. Mar, BMI 27.0-27.9,adult (ICD-10 - Z68.27) Eating healthy: tips to make it easier material was printed [employer] Other 2023 Evaluation note* Encounter Date Diagnosis Assessment Notes Treatment Notes Treatment Clinical Notes Jan, Chronic HFrEF (heart failure with reduced ejection fraction) (ICD-10 - I50.22) [employer] Other 10-09-2023 Evaluation note* Encounter Date Diagnosis [...] Continue statins. Monitor LFTs and lipid profile. [employer] Other 10-06-2023 Evaluation note* Encounter Date Diagnosis Assessment Notes Treatment Notes Treatment Clinical Notes Dec, Ground glass opacity present on imaging of lung (ICD-10 - R91.8) CT: RUL, RML - 12/2022Dec, Pulmonary nodule (ICD-10 - R91.1) CT: 7mm L nodule - 12/2022 [employer] Other 10-03-2023 Evaluation note* Encounter Date Diagnosis Assessment Notes Treatment Notes Treatment Clinical Notes Dec, Stage 3b chronic kidney disease (ICD-10 - N18.32) [employer] Other 10-02-2023 Evaluation note* Encounter Date Diagnosis [...] risk for cerebrovascular and cardiovascular disease. Dec, long term care phlebotomist current use of insulin (ICD-10 - Z79.4) [...] be contributing - must discuss w/ Cardiology [employer] Other 07-03-2023 Evaluation note* Encounter Date Diagnosis Assessment Notes Treatment Notes Treatment Clinical Notes Sep, ASHD (arteriosclerotic heart disease) (ICD-10 - I25.10) [employer] Other 06-21-2023 Evaluation note* Encounter Date Diagnosis Assessment Notes Treatment Notes Treatment Clinical Notes Aug, ASHD (arteriosclerotic heart disease) (ICD-10 - I25.10) [employer] Other 06-02-2023 Evaluation note* Encounter Date Diagnosis [...] inserts to prevent callus formation.Fall precautions. Aug, halfway (current) use of insulin (ICD-10 - Z79.4) [employer] Other 05-11-2023 Evaluation note* Encounter Date Diagnosis Assessment Notes Treatment Notes Treatment Clinical Notes July, Ground glass opacity present on imaging of lung (ICD-10 - R91.8) CT: RML,RUL infiltrate - 12/2021, CT: RML,RUL improved - 03/2022 CT: RML, RUL, GGO improved - 07/2022 [employer] Other 04-03-2023 Evaluation note* Encounter Date Diagnosis [...] advised him to continue to follow with John Pauldrnakul for DM management. He takes Lisinopril and [...] D and PTH. Advised low phosphorus diet. [employer] Other 03-30-2023 Evaluation note* Encounter Date Diagnosis [...] are reviewed at the office visit. May, long term care phlebotomist (current) use of insulin (ICD-10 - Z79.4) [...] (ICD-10 - Z12.5) Yearly PSA and ABDELRAHMAN [employer] Other 03-28-2023 Evaluation note* Encounter Date Diagnosis [...] 2. Blood glucose levels stable. According to [employer] cgm download 06/13/2022- 3: Average glucose 190. [...] hypertension material was printed on diony. May, halfway current use of insulin (ICD-10 - Z79.4) May, Hyperlipidemia (ICD-10 - E78.5) High cholesterol material was printed 05/2022 ldl 69- on statin. May, BMI 27.0-27.9,adult (ICD-10 - Z68.27) Eating healthy: tips to make it easier material was printed [employer] Other 02-25-2023 Evaluation note* Encounter Date Diagnosis Assessment Notes Treatment Notes Treatment Clinical Notes May, Abnormality of lung on CXR (ICD-10 - R91.8) [employer] Other 12-20-2022 Evaluation note* Encounter Date Diagnosis [...] 2. Blood glucose levels stable. According to [employer] cgm download 03/07/2022-03/20/20 22: Average glucose 144. Above 250-0%, >180- 15%, 70-180-85%, <70-0%, <54-0%. CV 24.3%. Reviewed download with pt, no incidence of hypoglcyemia noted. Glucose rise between 12-6pm. D/t current shortage of ozempic, recommend pt reduce dose to 0.5mg once weekly until shipment recieved from [facility], then increase to 1mg once weekly. [...] hypertension material was printed on diony. Mar, halfway current use of insulin (ICD-10 - Z79.4) Mar, Hyperlipidemia (ICD-10 - E78.5) High cholesterol material was printed 06/2021 ldl 48- on statin. Mar, BMI 26.0-26.9,adult (ICD-10 - Z68.26) Eating healthy: tips to make it easier material was printed 9 pound weight loss from last visit, continue with weight loss efforts [employer] Other 11-10-2022 Evaluation note* Encounter Date Diagnosis Assessment Notes Treatment Notes Treatment Clinical Notes Jan, Diabetes mellitus with chronic kidney disease (ICD-10 - E11.22) [employer] Other 10-19-2022 Discharge summary Author Gagan Shahid [facility] January 17, 2022 3:02pm Note Date/Time January 17, 2022 3 :02pm [facility] [address] [place] [address] Discharge Summary Signed Patient: Lani Lizama MR#: [id number] : 1950 Acct:[id number] Age/Sex: 71 / M Adm Date: 2 Loc: Room: [address] [place] [address]: Gagan Shahid DO Copies to: [...] thought this to be indigestion/GERD in the director of online merchandising hours howeverthis progressively worsened prompting his presentation [...] levels as before. DISCHARGE INSTRUCTIONS FOR CARDIAC CUSTOMER RELATIONS COORDINATOR PHONE NUMBER OF YOUR PHYSICIAN: [phone] PROCEDURE: Heart Cath The following instructions have [...] cold, numb, blue or white, call the bakery decorator immediately. 4. ACTIVITY: You are advised to [...] bottle, follow the instructions on the bottle. [facility] is not responsible for incorrect prescription information [...] <Electronically signed by Gagan Shahid DO> 01/17/22 150 [facility] Work Phone: 1(872) 814-706810-19-2022 Progress note Author Luis Alfredo Borges [facility] January 17, 2022 11:47am Note Date/Time January 17, 2022 1 1:47am [facility] [address] [place] [address] Cardiology Progress Note Signed Patient: Lani Lizama MR#: [id number] : 1950 Acct:[id number] Age/Sex: 71 / M Adm Date: 2 Loc: Room: [address] [place] [address] Type: ADM IN Attending Dr: Gagan Shahid [...] is also notable worsening of the patient's [place] occlusive coronaryheart disease particularly in the microcirculation [...] daily 3. Patient does have a primary bakery decorator near his home in [place]. We willschedule him 1 follow-up visit in [facility] for left wrist check and also for counseling and reinforcement/referral to phase 2 monitored cardiac rehabilitation which the patient desires to perform in [place]. 4. Instructed the patient that he can [...] signed by Luis Alfredo Borges MD> 01/17/22 1148 [facility] Work Phone: 1(946) 322-619110-18-2022 Progress note Author Gagan Shahid [facility] January 16, 2022 4:09pm Note Date/Time January 16, 2022 4 :09pm [facility] [address] [place] [address] Hospitalist Progress Note Signed Patient: Lani Lizama MR#: [id number] : 1950 Acct:[id number] Age/Sex: 71 / M Adm Date: 2 Loc: Room: [address] [place] [address] Type: ADM IN Attending Dr: Gagan Shahid [...] Ml Insuln.Pen SUBCUT 01/15/23 21:59 Not Given TID.WM.[facility] Protocol Isosorbide Mononitrate 60 mg 01/16/22 21:00 [...] <Electronically signed by Gagan Shahid DO> 01/16/22 1603 [facility] Work Phone: 1(672) 551-356910-18-2022 [facility] Consult note Author Luis Alfredo Borges [facility] January 16, 2022 10:24am Note Date/Time January 16, 2022 1 0:24am [facility] [address] [place] [address] Cardiology Consult Note Signed Patient: Lani Lizama MR#: [id number] : 1950 Acct:[id number] Age/Sex: 71 / M Adm Date: 2 Loc: Room: [address] [place] [address] Type: ADM IN Attending Dr: Gagan Shahid DO Copies to: Harley Ball,DO Luis Alfredo Baird MD~ Cardiology HPI History of Present Illness Consult Date: 01/16/22 Reason for Consult: Chest pain, shortness of breath, known coronary heart disease status post CAB and PCI HPI: Mr. Lizama is a 71 year old male with a known history of CABG x5 done remotely as well as history of PCI done here [facility] per Dr. Saldaña in May 2020 who [...] he activated EMS and was taken to [facility] emergency department. There the patient was treated [...] negative unless noted below or in HPI [facility] Vaccinated for COVID-19?: Yes Medical History (Updated [...] Lymph # (Auto) 1.0 1.6 (1.00-4.8) x10E3/uL Nelson # (Auto) 0.4 0.8 (0.0-0.8) x10E3/uL Eos [...] by Luis Alfredo Borges MD> 01/16/22 1024 [facility] Work Phone: 1(222) 732-439610-17-2022 History and physical note Author Gagan Shahid [facility] January 15, 2022 6:56pm Note Date/Time January 15, 2022 6 :02pm [facility] [address] [place] [address] Hospitalist H&P Signed Patient: Lani Lizama MR#: [id number] : 1950 Acct:[id number] Age/Sex: 71 / M Adm Date: 2 Loc: 3T Room: [address] [place] [address] Type: ADM IN Attending Dr: Gagan Shahid [...] need for cardiovascular evaluation [facility] management and cardiology consultation. Upon [...] % (Auto) 13.8 % (.) 01/15/22 15:00 Nelson % (Auto) 6.1 % (.) 01/15/22 15:00 Eos % (Auto) 0.9 % (.) 01/15/22 15:00 Baso % (Auto) 0.5 % (.) 01/15/22 15:00 Neut # (Auto) 5.6 x10E3/uL (1.8-7.7) 01/15/22 15:00 Lymph # (Auto) 1.0 x10E3/uL (1.00-4.8) 01/15/22 15:00 Nelson # (Auto) 0.4 x10E3/uL (0.0-0.8) 01/15/22 15:00 [...] <Electronically signed by Gagan Shahid DO> 01/15/22 5[address] [facility] Work Phone: 1(191) 306-688309-19-2022 Evaluation note* Encounter Date Diagnosis Assessment Notes [...] Blood glucose levels above improved. According to [employer] cgm download 12/05/2021- 2: Average glucose 119. [...] hypertension material was printed on diony. Nov, halfway current use of insulin (ICD-10 - Z79.4) Nov, Hyperlipidemia (ICD-10 - E78.5) High cholesterol material was printed 06/2021 ldl 48- on statin. Nov, BMI 27.0-27.9,adult (ICD-10 - Z68.27) Eating healthy: tips to make it easier material was printed 22 pound weight loss from last visit, continue with weight loss efforts [employer] Other [id number] Miscellaneous Notes* Telephone Encounter - Vee Day - 10/20/2021 9:42 AM EDT New CBC order. Vee Day [facility] Evaluation note* Encounter Date Diagnosis Assessment [...] Blood glucose levels above improved. According to [employer] cgm download 07/04/2021-07/17/2021 : Average glucose 146. [...] was printed on diony. Jun, long term care phlebotomist current use of insulin (ICD-10 - Z79.4) Jun, BMI 30.0-30.9,adult (ICD-10 - Z68.30) Eating healthy: tips to make it easier material was printed see above Jun, Bradycardia (ICD-10 - R00.1) asymptomatic- f/u with cardiology has upcoming apt. If symptomatic i.e. light headed notify sooner [employer] Other 03-21-2022 Evaluation note* Encounter Date Diagnosis Assessment Notes Treatment Notes Treatment Clinical Notes May, Gastro-esophageal reflux disease with esophagitis, without bleeding (ICD-10 - K21.00) [employer] Other 03-08-2022 Evaluation note* Encounter Date Diagnosis [...] His MBD parameters are within the goal. [employer] Other 02-21-2022 Evaluation note* Encounter Date Diagnosis Assessment Notes Treatment Notes Treatment Clinical Notes May, Diabetes mellitus with chronic kidney disease (ICD-10 - E11.22) [employer] Other 01-10-2022 Evaluation note* Encounter Date Diagnosis Assessment Notes Treatment Notes Treatment Clinical Notes Apr, Type 2 diabetes mellitus with hyperglycemia (ICD-10 - E11.65) [employer] Other 01-10-2022 Evaluation note* Encounter Date Diagnosis [...] Blood glucose levels above improved. According to [employer] cgm download 03/28/2021-04/10/19 22: Average glucose 167. [...] was also given rx assist paperwork for [facility] [place] he does not qualify for BI/jardiance. Ozempic will increase to 1mg once weekly. Apr, Hyperlipidemia (ICD-10 - E78.5) High cholesterol material was printed 07/2020 ldl 64 trig 207- on statin. Apr, HTN (hypertension) (ICD-10 - I10) About hypertension material was printed on diony. Apr, halfway current use of insulin (ICD-10 - Z79.4) Apr, BMI 30.0-30.9,adult (ICD-10 - Z68.30) Eating healthy: tips to make it easier material was printed see above [employer] Other 11-16-2021 Evaluation note* Encounter Date Diagnosis [...] His MBD parameters are within the goal. [employer] Other 10-05-2021 Evaluation note* Encounter Date Diagnosis [...] above target with increased variability. According to [employer] cgm download 12/07/2020-01/03/2021: Average glucose 135. Above [...] hypertension material was printed on diony. Dec, halfway current use of insulin (ICD-10 - Z79.4) Dec, BMI 31.0-31.9,adult (ICD-10 - Z68.31) Eating healthy: tips to make it easier material was printed 12 pound weight loss from last visit, continue with weight loss efforts Dec, Bradycardia (ICD-10 - R00.1) Pt asymptomatic. Notified bakery decorator Dr. Velazquez. Pt has apt on Saturday next week. [place] [employer] Other Chihs complaint+Reason for visit Narrative* Chief Complaint 4 month follow up Reason for Visit BMI 28.0-28.9,adult Dietary counseling and surveillance HTN (hypertension) Chronic HFrEF (heart failure with reduced ejection fraction) Chronic kidney disease [id number] HTN (hypertension) Hypercholesterolemia Ischemic cardiomyopathy Pulmonary nodule Type 2 diabetes mellitus with hyperglycemia [facility] Work Phone: Evaluation + Plan note No data available for this section General Surgery Luis Enrique Evaluation + Plan note Future Appointments Appointment Date:08/04/2024 10:00:00 AM Scheduled Provider: Location:[facility] Appointment Type:Urology FT Diagnostic Tests Pending * Urine Cytology ([facility]) 08/03/24 [facility] Evaluxdwui noteNo InformationNortEncompass Health [facility] [employer] Other Evaluation note* Diagnosis Monoclonal gammopathy- Primary Monoclonal paraproteinemia documented [facility] Diagnosis Onset Date Resolution Status Non-ST elevation myocardial infarction (NSTEMI), initial care episode acute [facility] Work Phone: Evaluxlkbg noteNo assessment information available [facility] Work Phone: evaluation note* Diagnosis Onset Date Resolution Status BMI 26.0-26.9,adult acute Dietary counseling and surveillance acute DM2 (diabetes mellitus, type 2) acute HLD (hyperlipidemia) acute HTN (hypertension) acute [facility] Work Phone: Evaluation note* Diagnosis Onset Date Resolution Status BMI 26.0-26.9,adult acute Dietary counseling and surveillance acute DM2 (diabetes mellitus, type 2) acute HLD (hyperlipidemia) acute HTN (hypertension) acute Chronic HFrEF (heart failure with reduced ejection fraction) acute CKD (chronic kidney disease) stage 3, GFR 30-59 ml/min acute HLD (hyperlipidemia) acute [id number] acute Secondary hyperparathyroidism acute Type 2 diabetes 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 acute [facility] Work Phone: Evaluation note* Diagnosis Onset Date Resolution Status Dietary counseling and surveillance acute HTN (hypertension) acute Chronic HFrEF (heart failure with reduced ejection fraction) acute CKD (chronic kidney disease) stage 3, GFR 30-59 ml/min acute [id number] acute Secondary hyperparathyroidism acute Type 2 diabetes 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 acute Chronic HFrEF (heart failure with reduced ejection fraction) acute Chronic kidney disease acute HTN (hypertension) acute Hypercholesterolemia acute Ischemic cardiomyopathy acut e Pulmonary nodule acute Type 2 diabetes mellitus with hyperglycemia acute Medicare annual wellness visit, subsequent noneactive Screening PSA (prostate specific antigen) noneactive [facility] Work Phone: evaluation note* Diagnosis [...] counseling and surveillance acute HTN (hypertension) acute [facility] Work Phone: Evaluation note* Diagnosis Onset Date Resolution Status BMI 28.0-28.9,adult acute Dietary counseling and surveillance acute HTN (hypertension) acute Chronic HFrEF (heart failure with reduced ejection fraction) acute Chronic kidney disease acute [id number] acute HTN (hypertension) acute Hypercholesterolemia acute Ischemic cardiomyopathy acut e Pulmonary nodule acute Type 2 diabetes mellitus with hyperglycemia acute [facility] Work Phone: Evaluation note* Diagnosis [...] disease) stage 3, GFR 30-59 ml/min acute [id number] acute Secondary hyperparathyroidism acute Type 2 diabetes 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 acute [facility] Work Phone: Evaluation note* Diagnosis Onset Date Resolution Status Chronic HFrEF (heart failure with reduced ejection fraction) acute Chronic kidney disease acute HTN (hypertension) acute Hypercholesterolemia acute Ischemic cardiomyopathy acut e Pulmonary nodule acute Type 2 diabetes mellitus with hyperglycemia acute Chronic HFrEF (heart failure with reduced ejection fraction) acute CKD (chronic kidney disease) stage 3, GFR 30-59 ml/min acute [id number] acute Secondary hyperparathyroidism acute Type 2 diabetes 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 acute BMI 27.0-27.9,adult acute Dietary counseling and surveillance acute HTN (hypertension) acute [facility] Work Phone: Evaluation note* Diagnosis Xerosis cutis- Primary Other specified disease of sebaceous glands Diabetes 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, without long-term current use of insulin (CMS/HCC) Pain due to onychomycosis of toenails of both feet documented in this encounter [facility] HealthcareEvaluation note* Diagnosis Diabetes 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, without long-term current use of insulin (CMS/HCC)- Primary Pain due to onychomycosis of toenails of both feet documented in this encounter [facility] HealthcareEvaluation note* Diagnosis Diabetes 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, without long-term current use of insulin ([facility])- Primary Pain due to onychomycosis of toenails of both feet Xerosis cutis Other specified disease of sebaceous glands documented in this encounter [facility] HealthcareHistory general Narrative - Reported* [...] 11-25-16 Hospitalization History HEART STENT PLACED 03-20 [employer] Other [facility] general Narrative - ReportedNortLumiFold Other [facility] general Narrative - Reported* Type Description Date [...] 11-25-16 Hospitalization History HEART STENT PLACED 03-20 [employer] Other history general Narrative - Reported* Type [...] 11-25-16 Hospitalization History HEART STENT PLACED 03-20 [employer] Other History general Narrative - Reported* Type [...] 11-25-16 Hospitalization History HEART STENT PLACED 03-20 [employer] Other [place] general Narrative - Reported* Type Description Date [...] STENT PLACED 03-20 Hospitalization History SEE ABOVE [employer] Other History general Narrative - [facility]Nos[facility] Other History general Narrative - Reported* Type [...] STENT PLACED 03-20 Hospitalization History SEE ABOVE [employer] Other Hiswvmp general Narrative - Reported* Type Description Date [...] STENT PLACED 03-20 Hospitalization History SEE ABOVE [employer] Other History general Narrative - Reported* Type [...] STENT PLACED 03-20 Hospitalization History SEE ABOVE [employer] Other History general Narrative - Reported* Type [...] History SEE ABOVE Hospitalization History ID 01/21 [employer] Other Hospital Discharge instructions No data available for this section General Surgery Luis Enrique Hospital Discharge instructions Additional Instructions Monitor glucose levels as before. DISCHARGE INSTRUCTIONS FOR CARDIAC CUSTOMER RELATIONS COORDINATOR PHONE NUMBER OF YOUR PHYSICIAN: [phone] PROCEDURE: Heart Cath The following instructions have [...] cold, numb, blue or white, call the bakery decorator immediately. 4. ACTIVITY: You are advised to [...] bottle, follow the instructions on the bottle. [facility] is not responsible for incorrect prescription information provided by the patient during their visit. Do not stop your medications without consulting your health care provider. Please take the list with you to your next doctor's appointment. [facility] Work Phone: Hospital Discharge instructionsAmbulatory Orders* Referral to Podiatry Location: None Selected [facility] Work Phone: Hospital Discharge instructionsAmbulatory Orders* Referral to Urology Time Frame: 07/14/24, Location: None [facility] Work Phone: Progress note No data available for this section General Surgery [place] Summary Purpose Family History No Family History [...] stage 3, GFR 30-59 ml/min HLD (hyperlipidemia) [id number] Secondary hyperparathyroidism Type 2 diabetes mellitus with diabetic chronic kidney disease 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 6 month follow up MEDICARE WELLNESS Reason for Visit Dietary counseling a nd surveillance HTN (hypertension) Chronic HFrEF (heart failure with reduced ejection fraction) CKD (chronic kidney disease) stage 3, GFR 30-59 ml/min [id number] Secondary hyperparathyroidism Type 2 diabetes mellitus with [...] kidney disease) stage 3, GFR 30-59 ml/min [id number] Secondary hyperparathyroidism Type 2 diabetes mellitus with [...] kidney disease) stage 3, GFR 30-59 ml/min [id number] Secondary hyperparathyroidism Type 2 diabetes mellitus with diabetic chronic kidney disease BMI 27.0-27.9,adult Dietary counseling and surveillance HTN (hypertension) Chief Complaint Admit Date Amb Documentation February 18, 2024 9:11am CC Adult Risk Stratification February 172023 10:26am IP f/u [facility] chest pain-HIGH RISK Nov 2023 9:29am 4 month f/u-HIGH RISK April 16, 2024 8:19am 3 month April 30, 2024 9 :21am Reason for Visit Admit Date Chronic HFrEF (heart failure with reduced ejection fraction) February 24, 2024 9:29am Chronic kidney disease February 23, 24 9:29am HTN (hypertension) February 24, 2024 9:29am [...] :19am Type 2 diabetes mellitus with hyperglyce [facility] April 16, 2024 8:19am BMI 28.0-28.9,adult [...] :19am Type 2 diabetes mellitus with hyperglyce [facility] April 16, 2024 8:19am BMI 28.0-28.9,adult [...] Amb Documentation August 21, 2024 1:11p m [facility] f/u August 25, 2024 11:31 am [...] and content) DATE CREATED AUTHOR 11/29/2018 [facility] DATE CREATED AUTHOR AUTHOR'S ORGANIZ ATION 10/25/2021 [facility] DATE CREATED AUTHOR AUTHOR'S ORGANIZ ATION 08/13/2022 [facility] DATE CREATED AUTHOR AUTHOR'S ORGANIZ ATION 08/09/2024 [facility] DATE CREATED AUTHOR AUTHOR'S ORGANIZ ATION 08/12/2024 [facility] DATE CREATED AUTHOR AUTHOR'S ORGANIZ ATION 09/24/2024 [facility] DATE CREATED AUTHOR AUTHOR'S ORGANIZ ATION 09/25/2024 [facility] DATE CREATED AUTHOR AUTHOR'S ORGANIZ ATION 10/09/2024 [facility] REASON FOR VISIT (unrecogniz ed section and [...] Provider Active Start: February 12, 2024 Ronnell D Katko , DO Attending Provider Active S tart: [...] , DO Primary Care Provider Active Start: October [...] July 02, 2023 End: July 02, 2023 Hop Trainer Relationship Specialty Start Date End Date Harley Crespo DO [address] [place] [address] PCP - General Internal Medicine 07/18/18 Team Status: Inactive Member Role Status Dates Harley Crespo DO Primary Care Provider Active Gagan Shahid DO Admit Provider, Attending Provider Active Team Status: Active Member Role Status Dates Harley Crespo DO Primary Care Provider Active Ryan Garrett APRN WET MILLING WHEEL OPERATOR-C Active Valerie Gallegos PA-C Active Arlen Kwong APRN Attending Provider Active Team Status: Inactive Member Role Status Dates Arlen Kwong APRN Attending Provider Active Start: March 12, 2023 End: March 12, 2023 Team Status: Inactive Member Role Status Dates Harley Crespo DO Primary Care Provider Active Start: March 12, 2023 End: March 12, 2023 Ryan Garrett APRN WET MILLING WHEEL OPERATOR-C Active Sta rt: March 12, 2023 End: [...] January 23, 2024 End: January 23, 2024 Hop Trainer Relationship Specialty Start Date End Date Harley Crespo MD [address] [place] [facility] [address] PCP - General Internal Medicine 11/07/23 Hop Trainer Relationship Specialty Start Date End Date Harley Crespo MD [address] [place] [facility] [address] PCP - General Internal Medicine 11/07/23 Hop Trainer Relationship Specialty Start Date End Date Harley Crespo MD [address] [place] [facility] [address] PCP - General Internal Medicine 11/07/23 Team Status: Active Member Role Status Dates aHrley Crespo DO Primary Care Provider Active Start: [...] Attending Provider Active Start: August 27, 2024 Hop Trainer Relationship Specialty Start Date End Date Harley Crespo DO [address] [place] [facility] [address] PCP - General Internal Medicine 11/07/23 Hop Trainer Relationship Specialty Start Date End Date Harley Crespo DO [address] [place] [facility] [address] (work) PCP - General Internal Medicine 11/07/23 Source Comments (unrecognize d section and content) In the event this informatio n is protected by the Federal Confidentiality of Alcohol and Drug Abuse Patient Records regulations: The Federal rules restrict any use of the information to criminally investigate or prosecute any alcohol or drug abuse patient.[facility] Goals (unrecognized section and content) Goals [...] BE BASED ON THE PRIMARY CLINICAL RECORDS. [employer] provides no warranty or guarantee of the accuracy or completeness of information in this document.
--- OUTSIDE RECORDS SUMMARY | 2024-10-11 19:33 | XMS_ITS | Clinical Summary ---
Author Organization [facility] Address [id number] [address] [place] [address] Care Team Providers Care Aircraft Rigging And Controls Mechanic Name Role Phone Harley Goodman DO Primary Care Provider [phone] Allergies No known active allergies Medications carvedilol (COREG) 25 mg tablet TAKE ONE TABLET BY MOUTH TWICE DAILY, (STOP taking lopressor/to prol) 3 02/25/2018 Active clopidogrel (PLAVIX) 75 mg tablet 01/01/2018 Active isosorbide mononitrate (IMDUR) 30 mg 24 hr tablet 02/26/2018 Active lisinopril (PRINIVIL,ZESTRI L) 20 mg tablet 02/19/2018 Act hti raNITIdine (ZANTAC) 300 mg tablet 02/05/2018 Active [...] on file Insurance COMMERCIAL MEDICARE Care Teams Aircraft Rigging And Controls Mechanic Relationship Specialty Start Date End Date Harley Goodman DO [facility] [place] [address] PCP - General Internal Medicine 02/14/18
--- OUTSIDE RECORDS SUMMARY | 2024-10-11 19:33 | XMS_ITS | Clinical Summary ---
Author Organization [facility] Address [address] [place] [id number] Care Team Providers Care Rn Team Leader Name Role Phone Harley Goodman DO Primary Care Provider [phone] Allergies Active Allergy Reactions Criticality Noted Date [...] influenza vaccine, whole virus 01/19/2008 novel influenza (C2R4-26) vaccine, PF 01/27/2009 pneumococcal conjugate (PCV1 3) [...] N ot on file 03/08/2020 Data from: https://www.neighborhoodatlas.medicine.[employer]/. Last address used for calculation Not on [...] 05/30/2020 Advance Directive Discussion 04/01/2024 Influenza Vaccine (#1) 2024 8, 01/16/2017, 11/30/2016, Additional history exists RSV Vaccine [...] - 8.0 g/dL 10/25/2020 10:[address] [facility] Albumin 4.3 3.9 - 4.9 g/dL 10/25/2020 10:[address] [facility] Calcium 9.1 8.5 - 10.2 mg/dL 10/25/2020 10:[address] [facility] Bilirubin, Total 0.7 0.2 - 1.3 mg/dL 10/25/2020 10:[address] [facility] Alkaline Phosphatase 98 38 - 113 U/L 10/25/2020 10:[address] [facility] AST 19 14 - 40 U/L 10/25/2020 10:[address] [facility] Glucose 191(H) 74 - 99 mg/dL 10/25/2020 10:[address] [facility] Comment: The [place] Diabetes Association (ADA) provides guidance for cutoff [...] Standards of Medical Care in Diabetes 2016, [place] [employer]. Diabetes Care. 2016.39(Suppl 1). BUN 20 9 - 24 mg/dL 10/25/2020 10:[address] [facility] Creatinine 1.93(H) 0.73 - 1.22 mg/dL 10/25/2020 10:[address] [facility] Sodium 139 136 - 144 mmol/L 10/25/2020 10:[address] [facility] Potassium 4.2 3.7 - 5.1 mmol/L 10/25/2020 10:[address] [facility] Chloride 106(H) 97 - 105 mmol/L 10/25/2020 10:[address] [facility] CO2 22 22 - 30 mmol/L 10/25/2020 10:[address] [facility] Anion Gap 11 9 - 18 mmol/L 10/25/2020 10:[address] [facility] ALT 16 10 - 54 U/L 10/25/2020 10:[address] [facility] eGFR- 42 10/25/2020 10:[address] [facility] eGFR-All Other Races 35 . 10/25/2020 10:[address] [facility] Comment: eGFR (Estimated GFR) Units of [...] us Agustin Walker MD LABORATORY Final Result [id number] from Last 3 Months or Most Recently Relevant to Health Maintenance Insurance MEDICARE MMO MEDICARE SUPPLEMENT Care Teams Rn Team Leader Relationship Specialty Start Date End Date Harley Goodman DO [address] [place] [address] PCP - General Internal Medicine 07/18/18
--- OUTSIDE RECORDS SUMMARY | 2024-10-11 19:33 | XMS_ITS | Clinical Summary ---
Author Organization [facility] Address [address] [place] [address] Care Team Providers Care Research Tech Name Role Phone Harley Goodman DO Primary Care Provider [phone] Allergies No known active allergies Medications ALPRAZolam [...] mononitrate ER (Imdur) 60 mg 24 hr tabletIndication s:Acute on chronic systolic heart failure (CMS/HCC),NSTEMI (non-ST elevated myocardial infarction) (CMS/HCC) Take 1 tablet (60 mg) by mouth 2 times daily. 180 tablet 3 4 Active rosuvastatin (Crestor) 40 mg tabletIndication s:NSTEMI (non-ST elevated myocardial infarction) (CMS/HCC) TAKE 1 TABLET BY MOUTH AT BEDTIME 90 tablet 3 4 Active spironolactone (Aldactone) 25 mg tabletIndication s:NSTEMI (non-ST elevated myocardial infarction) (CMS/HCC) Take 1 tablet (25 mg) by mouth in the morning. 90 tablet 3 4 01/16/20 25 Active nitroglycerin (Nitrostat) 0.4 mg SL tabletIndication s:Chest pain, unspecified type PLACE 1 TABLET UNDER TONGUE EVERY 5 MINS, UP TO 3 DOSES NEEDED FOR CHEST PAIN 90 tablet 2 4 Active Additional Information Patient not taking.Reported on 10/08/2024 cholecalciferol (Vitamin D3) 25 MCG (1000 units) [...] succinate XL (Toprol-XL) 50 mg 24 hr tabletIndication s:NSTEMI (non-ST elevated myocardial infarction) (CMS/HCC) Take 3 tablets (150 mg) by mouth in the morning for 97 doses. Do not crush or chew. 291 tablet 4 Active ranolazine (Ranexa) 500 mg 12 hr tabletIndication s:NSTEMI (non-ST elevated myocardial infarction) (CMS/HCC) Take 1 tablet (500 mg) by mouth two times daily. Do not crush, chew, or split. 180 tablet 3 4 03/14/20 25 Active thiamine (Vitamin B-1) 250 mg tablet Take 250 mg by mouth every other day. Active levoFLOXacin (Levaquin) 250 mg tablet 5 Active amLODIPine (Norvasc) 5 mg tabletIndication s:Hypertension, unspecified type Take 1 tablet (5 mg) by mouth in the morning. 90 tablet 3 5 09/08/19 26 Active insulin degludec (TRESIBA FLEXTOUCH U-100 SUBQ) Inject 15 Units under the skin in the morning. Active oxyBUTYnin (Ditropan) 5 mg tabletIndication s:Bladder spasms Take 1 tablet (5 mg) by mouth three times daily. 90 tablet 1 12/09/19 25 Active Active Problems Problem Noted Date Diagnosed Date Anticoagulated 10/01/2024 Arthritis 10/01/2024 Atheroscler of [place] artery of both legs with intermit claudication [...] (03/21/2022): Added automatically from request for surgery [id number] Gastroesophageal reflux disease 03/02/2022 Increased immunoglobulin 03/02/2022 [...] check diet Coronary artery disease invo lving [place] coronary artery of [place] heart 09/19/2011 Assessment & Plan (08/13/2024 1:28 PM EDT): As above Type 1 diabetes mellitus 09/19/2011 Essential hypertension 09/19/2011 Encounters Date Type Department Care Team Description 10/09/2024 Orders Only [facility] Urology [facility] [place] [address] Last Mcmanus MD Bladder mass (Primary Dx); Urinary tract infection without hematuria, site unspecified 10/09/2024 Orders Only [facility] Urology [facility] [place] [address] Last Mcmanus MD Bladder spasms (Primary Dx); Malignant neoplasm of urinary bladder, unspecified site (CMS/HCC) 10/08/2024 9:00 AM EDT Office Visit [facility] Heart at [facility] [address] [place] [address] Pinky Bishop MD Cardiac pacemaker in situ (Primary Dx); NSTEMI (non-ST elevated myocardial infarction) (CMS/HCC); Coronary artery disease involving [place] coronary artery of [place] heart without angina pectoris; Hypertension, unspecified type; Coronary artery disease of [place] artery of [place] heart with stable angina pectoris 10/08/2024 Telephone [facility] Urology [facility] [place] [address] Trice Rodrigez MA bladder spasms 10/06/2024 8:45 AM EDT Clinical Support [facility] [place] [address] 09/29/2024 1:37 PM EDT Anesthesia Event [facility] Main Operating Room [facility] [place] [address] Dorcas Dang MD Meehl, Austin, MD 09/29/2024 12:30 PM EDT - 09/29/2024 2:00 PM EDT Surgery [facility] [place] [address] Last Mcmanus MD TURBT (TRANSURETHRAL RESECTION OF BLADDER TUMOR) [76664 (CPT )] 09/29/2024 10:39 AM EDT - 09/29/2024 9:00 PM EDT Hospital Encounter [facility] [place] [address] Last Mcmanus MD Lesion of bladder Discharge Disposition: Home or Self Care () 09/29/2024 Travel 09/25/2024 9:00 AM EDT Pre-Admission Testing [facility] Pre-Anesthesia Clinic [address] [place] [address] 09/25/2024 Orders Only [facility] Pre-Anesthesia Clinic [address] [place] [address] Ember Adams, ALBINO 09/25/2024 Orders Only [facility] Pre-Anesthesia Clinic [address] [place] [address] Kb Petersen RN 09/25/2024 Orders Only [facility] Pre-Operation [address] [place] [address] Will Pepe CNP 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) (Primary Dx) 09/25/2024 Orders Only [facility] Pre-Anesthesia Clinic [address] [place] [address] Will Pepe CNP 09/25/2024 Travel 09/21/2024 Orders Only [facility] Urology [address] [place] [address] Last Mcmanus MD Malignant neoplasm of urinary bladder, unspecified site (CMS/HCC) (Primary Dx); Urinary tract infection without hematuria, site unspecified; Other specified disorders of bladder 09/21/2024 Telephone [facility] Urology [address] [place] [address] Serenity De Leon MA 09/18/2024 Orders Only [facility] Pre-Anesthesia Clinic [address] [place] [address] Kb Petersen RN 09/07/[address] [facility] [address] [place] [address] Criselda Rebollar MA Hypertension, unspecified type 09/02/[address] [facility] [address] [place] [facility] [place] [address] Criselda Rebollar MA 09/02/2024 Orders Only [facility] Pre-Anesthesia Clinic [address] [place] [address] Kb Petersen RN 08/28/2024 10:05 AM EDT Lab [facility] Outpatient Draw Station [address] [place] [address] Lesion of bladder; Encounter for screening for malignant neoplasm of prostate; Urinary tract infection without hematuria, site unspecified; Other specified disorders of bladder 08/28/2024 8:30 AM EDT Office Visit [facility] Urology [address] [place] [address] Last Mcmanus MD Lesion of bladder (Primary Dx); Encounter for screening for malignant neoplasm of prostate; Urinary tract infection without hematuria, site unspecified; Other specified disorders of bladder 08/28/2024 - 08/28/2024 11:59 PM EDT Hospital Encounter [facility] Radiology External Films [place] [address] Discharge Disposition: Home or Self Care (01) 08/20/2024 9:45 AM EDT Office Visit [facility] [address] [place] [address] Pinky Bishop MD Chronic systolic heart failure (CMS/HCC) (Primary Dx); Coronary artery disease of [place] artery of [place] heart with stable angina pectoris; Primary hypertension; Status post implantation of automatic cardioverter/defibrill ator (AICD); Palpitations 08/14/2024 Orders Only [facility] [address] [place] [address] Kevin Jacobs MD 08/13/2024 11:14 AM EDT - 08/14/2024 6:44 PM EDT Hospital Encounter [facility] [address] [place] [address] Tomas Covington MD Saad, Hani, MD Chest pain (Primary Dx); Hypertension, unspecified type Discharge Disposition: Home or Self Care (01) 08/13/2024 Travel 08/04/2024 - 08/04/2024 11:59 PM EDT Hospital Encounter [facility] Radiology External Films [address] [place] [address] Bladder tumor Discharge Disposition: Home or Self Care () 08/04/2024 Orders Only [facility] Urology [address] [place] [address] Last Mcmanus MD Bladder tumor 07/16/2024 9:15 AM EDT Ancillary Procedure [facility] [address] [place] [address] Pre-operative cardiovascular examination, ICD in place 07/16/2024 Orders Only [facility] [address] [place] [address] Mannie Armijo MD from Last 3 Months Immunizations Immunization Administration Dates Next Due Influenza Whole 01/19/2008 Influenza, High Dose Seasonal, Preservative Free 01/16/2017 Influenza, Seasonal, Quadrivalent, Adjuvanted Influenza, injectable, quadrivalent, preservativ e free 11/30/2016 Influenza, seasonal, injectable 01/23/2012,12/13 Influenza, trivalent, adjuvanted 01/17/2018 Novel [id number], preservative-free 01/27 Pneumococcal Conjugate PCV 13 11/14/2016 [...] drink = 0.6 oz pur e alcohol) [facility] Utilities Answer Date Recorded [...] any time in the past 12 m [facility], were you homeless or living in [...] Pulse 86 10/08/2024 8:55 AM EDT Temperature 36 C (96.8 F) 09/29/2024 6:30 PM EDT Respiratory Rate 23 09/29/2024 8:46 PM EDT Oxygen Saturation 99% 10/08/2024 8:55 AM EDT Inhaled Oxygen Concentration - - Weight 81.2 kg (179 lb) 10/08/2024 8:55 AM EDT Height 170.2 cm (5' 7 ) 10/08/2024 8:55 AM EDT Body Mass Index 28.04 10/08/2024 8:55 AM EDT Plan of Treatment Upcoming Encounters Date Type Department Care Team (Latest Contact Info) Description 11/11/2024 8:30 AM EDT Hospital Encounter [facility] Main Operating Room [address] [place] [address] Last Mcmanus MD [address] [place] [address] [place] [phone] 11/11/2024 8:30 AM EDT - 11/11/2024 10:00 AM EDT Surgery [facility] Main Operating Room [address] [place] [address] Last Mcmanus MD [address] [place] [address] [place] [phone] TURBT (TRANSURETHRAL RESECTION OF BLADDER TUMOR) [64724 (CPT )] Scheduled Procedures Name Priority Associated Diagnoses Date/Ti me TURBT (TRANSURETHRAL RESECTION OF BLADDER TUMOR) Malignant neoplasm of urinary bladder, unspecified site (CMS/HCC) 11/11/2024 8:30 AM EDT Health Maintenance Due Date Last Done Comments CT Colonography 1950 Diabetes: Hemoglobin A1C 1950 FIT-DNA 1950 FOBT 1950 Medicare Annual Wellness (AWV) 1950 Sigmoidoscopy 1950 Diabetes: Retinopathy Screening 11/07/1961 Depression Screening 1963 Adult Tetanus 11/07/1973 Zoster Vaccines (1 of 2) 11/07/2001 FIT 08/15/2021 08/15/2020 COVID-19 Vaccine ( season) 2023 02/21/2021, 06/21/2020, 05/30/2020 Influenza Vaccine (#1) 2024 , 12/15/2021, 01/17/2018, Additional history exists Fall Risk Screening 08/14/2025 08/14/2024 Colonoscopy 07/11/2031 07/10/2021 Colorectal Cancer Screening 07/11/2031 Pneumococcal Vaccine: 50+ Years Completed 01/17/2018, 11/14/2016, 04/02/2016 HIB Vaccines Aged Out No longer eligi [...] this topic Medical Devices Implanted Type Area Solid Plasterer Device Identifier Shelf Expiration Date Model / Serial / Lot Vigilant X4 Passenger Conductor-D Is-1/Df4/Is4 Implanted:Qty: 1 on 02/12/2023 by Kevin Jacobs MD at [facility] 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-D ICD [employer] [id number] 09/09/2024 [id number] / [id number] / Stent,Synergy Mr 4.00 X 28 - [id number] Implanted:Qty: 1 on 09/27/2023 by Petar Foreman MD at [facility] Drug Eluting Stent [employer] [id number] 04/09/2024 [id number] / / [id number] Ingevity+ Is-1 Bi Positive Fix Ra/Rv 52cm Implanted:Qty: 1 on 03/21/2022 by Kevin Jacobs MD at [facility] Lead [employer] [id number] 03/09/2024 [id number] / [id number] / Ingevity+ Is-1 Bi Positive Fix Ra/Rv 45cm Implanted:Qty: 1 on 03/21/2022 by Kevin Jacobs MD at [facility] Lead [employer] [id number] 01/02/2024 7840 / [id number] / [place] 4-Front S Active Fix Single Coil 59cm Implanted:Qty: 1 on 02/12/2023 by Kevin Jacobs MD at [facility] Lead [employer] [id number] 01/06/2025 0672 / [id number] / Lead,Acuity X4,Spiral L - [id number] - [id number] Implanted:Qty: 1 on 02/12/2023 by Kevin Jacobs MD at [facility] Lead [employer] [id number] 01/13/2025 4677 / [id number] / Pacer,Accolade ,Mri Dr Castelan - [id number] - [id number] Implanted:Qty: 1 on 03/21/2022 by Kevin Jacobs MD at [facility] Pacemaker [employer] 02/05/2024 [id number] / [id number] / [id number] Description:Mode: DDD RYTHMIQ: OFF LRL / MTR [...] 09/30/19 2:32 PM EDT Lesion of bladder NON-TAX ANALYST CYTOLOGY - CELLULAR EXAM Routine 09/29/2024 2:15 PM EDT Lesion of bladder ANESTHESIA SPINAL BLOCK Routine 09/30/19 1:45 PM EDT NV CYSTOURETHROSCOPY W/DEST &/RMVL MED BLADDER MARIO 09/29/2024 1:37 PM EDT Lesion of bladder POCT GLUCOSE METER UNSOLICITED RESULTS Routine 09/29/2024 11:12 AM EDT CBC WITH AUTO DIFFERENTIAL Routine 08/28/2024 9:58 [...] Months Results * (ABNORMAL) POCT glucose meter (09/29/2024 3:04 PM EDT) Only the most recent of8 resultswithin the time period is included. Glucose POC 143(H) 70 - 105 mg/dL 09/29/2024 3:16 PM EDT [facility] ([facility]EL) Comment:[email or web address] Blood Capillary blood specimen / Unknown 09/29/2024 3:04 PM EDT 09/29/2024 3:15 PM EDT Narrative [facility] ([facility]HEL) - 09/29/2024 3:16 PM EDT Waived Testing in the ED is performed under the ED CLIA certificate #[id number]. us Last Mcmanus MD LAB BLOOD ORDERABLES Final Resul t [facility] ([facility]) [address] [place] [address] * Histology - tissue exam (09/29/2024 2:32 PM EDT) Case Report Surgical Pathology Case: [id number] Authorizing Provider: Last Mcmanus MD Collected: 09/29/2024 1432 Ordering Location: [facility] Main Operating Room Received: 09/29/2024 1514 Pathologist: Kevin Dawson MD Specimen: Urinary Bladder, Bladder Tumor 10/05/2024 11:05 AM EDT [facility] ([facility]) Final Diagnosis A. Bladder tumor, transurethral resection: - Invasive high-grade papillary urothelial carcinoma. - Small fragments of muscularis propria present, uninvolved by neoplasm. - See synoptic report. 10/05/2024 11:05 AM EDT [facility] HARRY) at 1104 EDT Preliminary Diagnosis 10/05/2024 11:05 AM EDT [facility] ([facility]) Clinical Information Post-Op Diagnoses N32.9 - Lesion of bladder [ICD-10-CM] 10/05/2024 11:05 AM EDT [facility] ([facility]) Comment This case was reviewed in intradepartmental consensus with agreement of the diagnosis. 10/05/2024 11:05 AM EDT [facility] ([facility]) Gross Description A. Urinary Bladder. The specimen is received in formalin labeled Lani Mega and bladder tumor. It consists of a 2.7 x 2.5 x 0.6 cm aggregate of red-pink to vázquez-brown, rubbery, shaggy fragments of soft tissue. The specimen is entirely submitted in 3 cassettes. Sangeetha Muro, Pathologists' Circus Train Supervisor student Hugo Suárez Pathologists' Circus Train Supervisor 10/05/2024 11:05 AM T [facility] ([facility]) Microscopic Description Microscopic examination performed. 10/05/2024 11:05 AM EDT [facility] ([facility]) Synoptic Checklist URINARY BLADDER: Biopsy and Transurethral [...] Present in specimen 10/05/2024 11:05 AM T [facility] ([facility]) Tissue Urinary bladder structure / Unknown 09/29/2024 2:32 PM EDT 09/29/2024 3:14 PM EDT Comment:Pre-op diagnosis: Lesion of bladder [N32.9] us Obi Marietta LEMUS LAB PATHOLOGY ORDERABLES Final R esult [facility] ([facility]) [address] [place] [address] * Non-design printing machine setter cytology - cellular exam (09/29/2024 2:15 PM EDT) Case Report Non-gynecologic Cytology Case: [id number] Authorizing Provider: Last Mcmanus MD Collected: 09/29/2024 1415 Ordering Location: [facility] Main Operating Room Received: 09/30/2024 0804 Pathologist: Omayra Sullivan MD Specimen: Urine 10/01/2024 6:05 PM EDT [facility] ([facility]) Final Diagnosis A. Urine, cystoscopic: - Atypical urothelial cells. - Marked acute inflammation. 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 10/01/2024 6:05 PM EDT [facility] ([facility]) at 1805 EDT Comment See also concurrent surgical case, [id number]. 10/01/2024 6:05 PM EDT [facility] ([facility]) Microscopic Description Satisfactory for evaluation. Examination of the ThinPrep slide reveals atypical cells, urothelial cells, abundant acute inflammation, blood, fungal spores consistent with Coretta species and debris. 10/01/2024 6:05 PM EDT [facility] ([facility]) Clinical Information Post-Op Diagnoses N32.9 - Lesion of bladder [ICD-10-CM] 10/01/2024 6:05 PM EDT [facility] ([facility]) Gross Description 80 mL clear, yellow fluid 10/01/2024 6:05 PM EDT [facility] ([facility]) Urine Urine specimen / Unknown 09/29/2024 2:15 PM EDT 09/30/2024 8:04 AM EDT Comment:Pre-op diagnosis: Lesion of bladder [N32.9] us Last Mcmanus MD LAB CYTOLOGY ORDERABLES Final Re sult [facility] ([facility]) [address] [place] [address] * Spinal Block (09/29/2024 1:45 PM EDT) Dorcas Edgar MD - 09/29/2024 1:45 PM EDT Dorcas Dang MD 09/29/2024 3:24 PM Spinal Block Patient location during procedure: OR Start time: 09/29/2024 1:45 PM End time: 09/29/2024 1:55 PM Reason for block: primary anesthetic Staffing Performed: resident/HEDDLER/CAA Anesthesiologist: Dorcas Dang MD Resident/HEDDLER: Mirela Devlin MD Performed by: Mirela Devlin [...] Dang MD ANESTHESIA ORDERABLES Final Res ult * (ABNORMAL) CBC auto differential (08/28/2024 9:58 AM EDT) Only the most recent of2 resultswithin the time period is included. Auto WBC 9.60 4.00 - 10.60 10*3/uL 08/28/2024 11:15 AM EDT [facility] ([facility]) RBC 4.93 4.20 - 5.70 10*6/uL 08/28/2024 11:15 AM EDT [facility] ([facility]) Hemoglobin 14.4 13.0 - 17.0 g/dL 08/28/2024 11:15 AM T [facility] ([facility]) Hematocrit 44.8 39.0 - 50.0 % 08/28/2024 11:15 AM T [facility] ([facility]) MCV 90.9 82.0 - 98.0 fL 08/28/2024 11:15 AM [facility] ([facility]) MCH 29.2 27.0 - 33.0 pg 08/28/2024 11:15 AM T [facility] ([facility]) MCHC 32.1 32.0 - 35.0 g/dL 08/28/2024 11:15 AM [facility] ([facility]) RDW 14.1 11.5 - 15.0 % 08/28/2024 11:15 AM [facility] ([facility]) Neutrophils % 69.9 40.0 - 72.0 % 08/28/2024 11:15 AM [facility] ([facility]) Lymphocytes % 18.9(L) 20.0 - 45.0 % 08/28/2024 11:15 AM [facility] ([facility]) Monocytes % 7.9 5.0 - 12.0 % 08/28/2024 11:15 AM [facility] ([facility]) Eosinophils % 1.8 0.0 - 6.0 % 08/28/2024 11:15 AM [facility] ([facility]) Basophils % 0.9 0.0 - 1.0 % 08/28/2024 11:15 AM [facility] ([facility]) Neutrophils Absolute 6.71 1.60 - 7.60 10*3/uL 08/28/2024 11:15 AM [facility] ([facility]) Lymphocytes Absolute 1.81 1.20 - 4.00 10*3/uL 08/28/2024 11:15 AM T [facility] ([facility]) Monocytes Absolute 0.76 0.10 - 1.00 10*3/uL 08/28/2024 11:15 AM [facility] ([facility]) Eosinophils Absolute 0.17 0.00 - 0.50 10*3/uL 08/28/2024 11:15 AM T [facility] ([facility]) Basophils Absolute 0.09 0.00 - 0.20 10*3/uL 08/28/2024 11:15 AM EDT [facility] ([facility]) Platelets 278 150 - 400 10*3/uL 08/28/2024 11:15 AM EDT [facility] ([facility]) nRBC % 0.0 0 % 08/28/2024 11:15 AM EDT [facility] ([facility]) Immature Granulocytes % 0.6 0.0 - 1.0 % 08/28/2024 11:15 AM EDT [facility] ([facility]) Immature Granulocytes Absolute 0.06 0.00 - 0.20 10*3/uL 08/28/2024 11:15 AM EDT [facility] ([facility]) Blood Venous blood specimen / Unknown Venipuncture / Unknown 08/28/2024 9:58 AM EDT 08/28/2024 10:46 AM EDT Last Mcmanus MD LAB BLOOD ORDERABLES Final Resul t Performing Organization Address City/[facility]/ZIP Co de Phone Number [facility]) [address] [place] [address] * APTT (08/28/2024 9:58 AM EDT) Pathologist [facility] aPTT 29.3 25.0 - 35.0 Seconds 08/28/2024 11:06 AM EDT [facility]) Comment:Clinical significanc e of the APTT is questionable in the presence of heparin. Blood Venous blood specimen / Unknown Venipuncture / Unknown 08/28/2024 9:58 AM EDT 08/28/2024 10:38 AM EDT Last Mcmanus MD LAB BLOOD ORDERABLES Final Resul t [facility]) [address] [place] [address] * Protime-INR (08/28/2024 9:58 AM EDT) Protime 14.2 12.3 - 14.8 Seconds 08/28/2024 11:06 AM EDT [facility] ([facility]) INR 1.10 0.90 - 1.10 08/28/2024 11:06 AM EDT [facility] ([facility]) Comment: ACC RECOMMENDED INR FOR WARFARIN THERAPY [...] 9:58 AM EDT 08/28/2024 10:38 AM EDT us Last Mcmanus MD LAB BLOOD ORDERABLES Final Resul t [facility] ([facility]) [address] [place] [address] * Urine culture, routine (08/28/2024 9:58 AM EDT) Pathologist [facility] Urine Culture <10,000 CFU/ML No Significant Growth MALCOLM 08/30/2024 6:58 AM EDT [facility] ([facility]) Urine Urine specimen obtained by clean catch procedure / Unknown Non-blood Collection / Unknown 08/28/2024 9:58 AM EDT 08/28/2024 10:38 AM EDT Last Mcmanus MD LAB MICROBIOLOGY - GENERAL ORDER KURTIS Final Result Performing Organization Address City/[facility]/ZIP Co de Phone Number [facility]) [address] [place] [address] * PSA Screening (08/28/2024 9:58 AM EDT) PSA 1.5 0.4 - 4 ng/mL 08/28/2024 11:18 AM EDT [facility] ([facility]) Blood Venous blood specimen / Unknown Venipuncture / Unknown 08/28/2024 9:58 AM EDT 08/28/2024 10:45 AM EDT Last Mcmanus MD LAB BLOOD ORDERABLES Final Resul t Performing Organization Address City/[facility]/ZIP Co de Phone Number [facility] [facility]PITAL) [address] [place] [id number] * (ABNORMAL) Comprehensive metabolic panel (08/28/2024 9:58 AM EDT) Only the most recent of2 resultswithin the time period is included. Sodium 138 136 - 145 mmol/L 08/28/2024 11:14 AM EDT [facility] ([facility]) Potassium 5.9(H) 3.5 - 5.1 mmol/L 08/28/2024 11:14 AM EDT [facility] ([facility]) Chloride 105 98 - 107 mmol/L 08/28/2024 11:14 AM EDT [facility] ([facility]) CO2 28 21 - 31 mmol/L 08/28/2024 11:14 AM EDT [facility] ([facility]) Anion Gap 11 7 - 20 mmol/L 08/28/2024 11:14 AM EDT [facility] ([facility]) BUN 30(H) 7 - 25 mg/dL 08/28/2024 11:14 AM EDT [facility] ([facility]) Creatinine 1.95(H) 0.70 - 1.30 mg/dL 08/28/2024 11:14 AM [facility] ([facility]) BUN/Creatinine Ratio 15.4 08/01 11:14 AM [facility] ([facility]) Glucose 185(H) 70 - 100 mg/dL 08/28/2024 11:14 AM [facility] ([facility]) Calcium 9.6 8.6 - 10.3 mg/dL 08/28/2024 11:14 AM [facility] ([facility]) AST 20 13 - 39 U/L 08/28/2024 11:14 AM [facility] ([facility]) ALT (SGPT) 17 7 - 52 U/L 08/28/2024 11:14 AM [facility] ([facility]) Alkaline Phosphatase 117(H) 34 - 104 U/L 08/28/2024 11:14 AM [facility] ([facility]) Total Protein 7.7 6.0 - 8.3 g/dL 08/28/2024 11:14 AM [facility] ([facility]) Albumin 4.5 3.5 - 5.7 g/dL 08/28/2024 11:14 AM [facility] ([facility]) Total Bilirubin 0.6 0.3 - 1.0 mg/dL 08/28/2024 11:14 AM [facility] ([facility]) eGFR 35.9(L) >60.0 mL/min/1. 73m*2 08/28/2024 11:14 AM [facility] ([facility]) Comment:The [facility] s estimated glomerular filtration rate (eGFR) [...] MD LAB BLOOD ORDERABLES Final Resul t [facility] ([facility]) [address] [place] [address] * CT transfer of outside films (08/28/2024 12:00 AM EDT) Narrative IMAGING - 08/28/2024 9:30 AM EDT This order has been auto-finalized and does not contain a result. Last Mcmanus MD IMG CT PROCEDURES Final Result Performing Organization Address City/[facility]/ZIP Co de Phone Number IMAGING * Lex[facility] Stress Myocardial Perfusion Imaging (08/14/2024 11:03 AM EDT) Anatomical Region Laterality Modality Other 08/14/2024 10:4 3 AM EDT Narrative 08/14/2024 9:52 AM EDT 1 1 [facility] Heart Station [address] [place] [address] [phone] (fax) [facility] Stress Myocardial Perfusion Imaging- [facility] Name: LANI LIZAMA Study Date: 08/14/2024 10:43 AM B/P: / HR: Date of : 1950 Location: [facility] Height: 67 in. Age: 73 year(s) [...] Lexiscan Exercise Time: 03:00 Device: Treadmill HR [place] Used: 12.00 % HR Recovery: -1 bpm Frequent VE: 0 VE/min Resolution: No Symptoms Max HR: 93 bpm Target HR: 125 bpm Achieved: No Resting HR: 82 bpm Max Predicted HR: 148 bpm Achv. of Max Predicted: 62 % BP Max: 154/89 BP at Rest: 147/72 Max RPP: 34174 mmHg*bpm Max ST Lead: V6 Max ST Phase: Postinfsn Stage No. in Phase: [address] Stage: 3-[address] Amplitude: -0.[address] [place]: -0.470 mV/s Max ST Time in Phase: 03:30 Artifact Count: 0 Chest Pain: no Pharmalogical Stress Examination Protocol Stage Name Time in Stage Load Heart Rate BP Dosage ST Level Cardiac Arrhy Cardiac Symp. Other Pain Changes Symptom Supine 10:26 1.00 mets 82 bpm 147/72 -0.750 mm Infusion 30 seconds 00:30 1.00 mets 82 bpm 147/72 -0.650 mm [id number] 00:30 1.00 mets 87 bpm 147/72 -0.650 [...] 4 - Aneurysmal Procedure Staff Reading Group: [facility] Referring Physician: HARLEY GOODMAN Stress Government Sales Manager: Angely Dalal Cloth Boil Off Machine Operator: Shira Zhou Ordering Physician: TATIANNA HAYWARD Advanced Practitioner: Bozena Santacruz NP Nurse: Juli Salazar Resting Perfusion Procedure Note Yuridia Velez MD - 08/14/2024 1 1 [facility] Heart Station [address] [place] [address] [phone] (fax) [facility] Stress Myocardial Perfusion Imaging- [facility] Name: LANI LIZAMA Study Date: 08/14/2024 10:43 AM B/P: / HR: Date of : 1950 Location: [facility] Height: 67 in. Age: 73 year(s) [...] Lexiscan Exercise Time: 03:00 Device: Treadmill HR [place] Used: 12.00 % HR Recovery: -1 bpm Frequent VE: 0 VE/min Resolution: No Symptoms Max HR: 93 bpm Target HR: 125 bpm Achieved: No Resting HR: 82 bpm Max Predicted HR: 148 bpm Achv. of Max Predicted: 62 % BP Max: 154/89 BP at Rest: 147/72 Max RPP: 56646 mmHg*bpm Max ST Lead: V6 Max ST Phase: Postinfsn Stage No. in Phase: [address] Stage: 3-[address] Amplitude: -0.[address] [place]: -0.470 mV/s Max ST Time in Phase: 03:30 Artifact Count: 0 Chest Pain: no Pharmalogical Stress Examination Protocol Stage Name Time in Stage Load Heart Rate BP Dosage ST Level Cardiac Arrhy Cardiac Symp. Other Pain Changes Symptom Supine 10:26 1.00 mets 82 bpm 147/72 -0.750 mm Infusion 30 seconds 00:30 1.00 mets 82 bpm 147/72 -0.650 mm [id number] 00:30 1.00 mets 87 bpm 147/72 -0.650 [...] 4 - Aneurysmal Procedure Staff Reading Group: [facility] Referring Physician: HARLEY GOODMAN Stress Government Sales Manager: Angely Dalal Cloth Boil Off Machine Operator: Shira Zhou Ordering Physician: TATIANNA HAYWARD Advanced Practitioner: Bozena Santacruz NP Nurse: Juli Salazar Resting Perfusion us Tatianna Hayward MD CV STRESS PROCEDURES Final Result * COMPLETE ECHO (TTE) W/ IMAGING AGENT (08/14/2024 8:59 AM EDT) Anatomical Region Laterality Modality Other 08/14/2024 8:33 AM EDT Narrative 08/14/2024 9:44 AM EDT 1 1 [facility] Heart Station [address] [place] [address] [phone] (fax) Echocardiogram-[facility] Name: LANI LIZAMA Study Date: 08/14/2024 08:33 AM B/P: 118 mmHg/75 mmHg HR: 75 bpm Date of : 1950 Location: [facility] Height: 67 in. Age: 73 year(s) [...] No pericardial effusion. Procedure Staff Reading Group: [facility] Analytical Tech: MASTER Ortega, RDCS Ordering Physician: TATIANNA HAYWARD Wall Motion Scores -1 - hyperkinesia, 0 - not evaluated, 1 - normal, 2 - hypokinesia, 3 - akinesia, 4 - dyskinesia Procedure Note Fabricio Galindo MD - 08/14/2024 1 1 [facility] Heart Station [address] [facility] [place] [address] [phone] (fax) Echocardiogram-[facility] Name: LANI LIZAMA Study Date: 08/14/2024 08:33 AM B/P: 118 mmHg/75 mmHg HR: 75 bpm Date of : 1950 Location: [facility] Height: 67 in. Age: 73 year(s) [...] No pericardial effusion. Procedure Staff Reading Group: [facility] Analytical Tech: Lorri Carbajal, BS, RDCS Ordering Physician: TATIANNA HAYWARD Wall Motion Scores -1 - hyperkinesia, 0 - not evaluated, 1 - normal, 2 - hypokinesia, 3 - akinesia, 4 - dyskinesia us Tatianna Hayward MD CV ECHO PROCEDURES Final R esult * (ABNORMAL) High Sensitivity Troponin I (08/14/2024 7:14 AM EDT) Only the most recent of2 resultswithin the time period is included. High Sensitivity Troponin I 160(HH) <20 ng/L 08/14/2024 8:12 AM EDT [facility] ([facility]) Blood Venous blood specimen / Unknown Venipuncture / Unknown 08/14/2024 7:14 AM EDT 08/14/2024 7:25 AM EDT Devante Leon MD LAB BLOOD ORDERABLES Final Resul t Performing Organization Address City/[facility] Co de Phone Number [facility]) [address] [place] [address] * Lavender Top (08/14/2024 7:14 AM EDT) Pathologist [facility] Extra Tube Hold for add-ons. 08/14/2024 9:01 AM EDT [facility]) Comment:Auto resulted. Blood Venous blood specimen / Unknown 08/14/2024 7:14 AM EDT 08/14/2024 7:25 AM EDT Devante Leon MD LAB BLOOD ORDERABLES Final Resul t Performing Organization Address City/[facility]/ZIP Co de Phone Number [facility]) [address] [place] [address] * Cardiac device check - Remote ICD (08/14/2024 12:00 AM EDT) Only the most recent of2 resultswithin the time period is included. Anatomical Region Laterality Modality Other 08/14/2024 Kevin Jacobs MD CV IMPLANTABLE CARDIAC DEVICE NV OCEDURES Final Result * ECG 12 lead (08/13/2024 5:41 PM EDT) Ventricular Rate 86 BPM GE MUSE Atrial Rate 86 BPM GE MUSE NV Interval 154 ms GE MUSE QRS DURATION 144 ms GE MUSE QT Interval 424 ms GE MUSE QTC CALCULATION(BAZE TT) 507 ms GE MUSE P [place] 37 degrees GE MUSE R-[place] -56 degrees GE MUSE T Wave [place] 114 degrees GE MUSE 08/13/2024 5:25 PM [...] - 5.0 mg/dL 08/13/2024 3:18 PM EDT [facility] ([facility]) Blood Venous blood specimen / Unknown Venipuncture / Unknown 08/13/2024 2:21 PM EDT 08/13/2024 2:50 PM EDT us Graeme Sorensen MD LAB BLOOD ORDERABLES Final Re sult [facility] ([facility]) [address] [facility] [place] [address] * Magnesium (08/13/2024 2:21 PM EDT) Magnesium 1.9 1.9 - 2.7 mg/dL 08/13/2024 3:18 PM EDT [facility] ([facility]) Blood Venous blood specimen / Unknown Venipuncture / Unknown 08/13/2024 2:21 PM EDT 08/13/2024 2:50 PM EDT us Graeme Sorensen MD LAB BLOOD ORDERABLES Final Re sult [facility] ([facility]) [address] [place] [address] * XR transfer of outside films (08/04/2024 12:00 AM EDT) Narrative IMAGING - 08/04/2024 10:24 AM EDT This order has been auto-finalized and does not contain a result. Last Mcmanus MD IMG XR PROCEDURES Final Result IMAGING * CARDIAC DEVICE CHECK - REMOTE - ICD (07/17/2024 10:15 AM EDT) Mannie Armijo MD CV IMPLANTABLE CARDIAC DEVICE NV OCEDURES Final Result CPACS from Last 3 [...] 12:52 PM 01/28/2023 8:05 PM Care Teams Research Tech Relationship Specialty Start Date End Date Harley Goodman DO [address] [place] [address] PCP - General 03/02/22
--- OUTSIDE RECORDS SUMMARY | 2024-10-11 19:33 | XMS_ITS | Encounter Summary ---
Author Organization [facility] Address [facility] [place] [id number] Care Team Providers Care Welding Technician Name Role Phone Harley Goodman DO Primary Care Provider [phone] Source Comments In the event this information is protected by the Federal Confidentiality of Alcohol and Drug AbusePatient Records regulations: The Federal rules restrict any use of the information to criminally investigate or prosecute any alcohol or drug abuse patient.[facility] Encounter Details Date Type Department Care [...] on filedocumented in this encounter Care Teams Welding Technician Relationship Specialty Start Date End Date Harley Goodman DO [address] [facility] [place] [id number] PCP - General Internal Medicine 07/18/18 documented as of this encounter
--- OUTSIDE RECORDS SUMMARY | 2024-10-11 19:33 | XMS_ITS | Encounter Summary ---
Author Organization [facility] Address [address] [place] [address] Care Team Providers Care Dairy Nutrition Specialist Name Role Phone Harley Goodman DO Primary Care Provider [phone] Encounter Details Date Type Department Care Team (Late st Contact Info) Description 07/16/2024 Orders Only [facility] Card[facility] Clinic [address] [place] [address] Mannie Armijo MD [address] [place] [address] Social History Tobacco Use Types Packs/Day Years Used Date Smoking Tobacco: Former Cigarettes Smokeless Tobacco: Never Alcohol Use Standard Drinks/Week Comments Never 0 (1 standard drink = 0.6 oz pur e alcohol) [facility] Utilities Answer Date Recorded In the past 12 months has e [employer], gas, oil, or water [employer] threatened to shut off services in your [...] any time in the past 12 m [facility], were you homeless or living in a intermediate (including now)? No 02/13/2024 Hunger Vital Sign [...] Description 11/11/2024 8:30 AM EDT Hospital Encounter [facility] Main Operating Room [address] [place] [address] Last Mcmanus MD [address] [place] [address] [place] [address] 11/11/2024 8:30 AM EDT - 11/11/2024 10:00 AM EDT Surgery [facility] Main Operating Room [address] [place] [address] Last Mcmanus MD [address] [place] [address] [place] [address] TURBT (TRANSURETHRAL RESECTION OF BLADDER TUMOR) [47523 (CPT )] Scheduled Procedures Name Priority Associated [...] Mannie Armijo MD CV IMPLANTABLE CARDIAC DEVICE WI OCEDURES Final Result documented in this encounter Visit Diagnoses Not on filedocumented in this encounter Care Teams Dairy Nutrition Specialist Relationship Specialty Start Date End Date Harley Goodman DO [address] [place] [address] PCP - General 03/02/22 documented as of this encounter
--- OUTSIDE RECORDS SUMMARY | 2024-10-11 19:33 | XMS_ITS | Clinical Summary ---
Author Organization [facility] Address [address] [place] [address] Care Team Providers Care Truck Railroad And Bus Motor Mechanic Name Role Phone Unavailable Primary Care Provider [...]
--- OUTSIDE RECORDS SUMMARY | 2024-10-11 19:33 | XMS_ITS | Encounter Summary ---
Author Organization [facility] Address [address] [place] [address] Care Team Providers Care Block Saw Operator Name Role Phone Harley Goodman DO Primary Care Provider [phone] Encounter Details Date Type Department Care Team (Latest Contact Info) Description 09/29/2024 Travel Social History Tobacco Use Types Packs/Day Years Used Date Smoking Tobacco: Former Cigarettes Smokeless Tobacco: Never Alcohol Use Standard Drinks/Week Comments Never 0 (1 standard drink = 0.6 oz pur e alcohol) [facility] Utilities Answer Date Recorded In the [...] any time in the past 12 m [facility], were you homeless or living [...] 11/11/2024 8:30 AM EDT Hospital Encounter [facility] Main Operating Room [address] [place] [address] Last Mcmanus MD [address] [place] [address] [place] [address] 11/11/2024 8:30 AM EDT - 11/11/2024 10:00 AM EDT Surgery [facility] Main Operating Room [address] [place] [address] Last Mcmanus MD [address] [place] [address] [place] [address] TURBT (TRANSURETHRAL RESECTION OF BLADDER TUMOR) [81334 (CPT )] Scheduled Procedures Name Priority Associated Diagnoses Date/Ti me TURBT (TRANSURETHRAL RESECTION OF BLADDER TUMOR) Malignant neoplasm of urinary bladder, unspecified site (CMS/HCC) 11/11/2024 8:30 AM EDT documented as of this encounter Visit Diagnoses Not on filedocumented in this encounter Care Teams Block Saw Operator Relationship Specialty Start Date End Date Harley Goodman DO [address] [place] [address] PCP - General 03/02/22 documented as of this encounter
--- OUTSIDE RECORDS SUMMARY | 2024-10-11 19:33 | XMS_ITS | Encounter Summary ---
Author Organization [facility] Address [address] [place] [address] Care Team Providers Care Technical Professional Name Role Phone Harley Goodman DO Primary Care Provider [phone] Encounter Details Date Type Department Care Team (Late st Contact Info) Description 10/09/2024 Orders Only [facility] Urology [address] [place] [address] Last Mcmanus MD [address] [place] [address] Dr [address] [place] [address] Bladder spasms (Primary Dx); Malignant neoplasm of urinary bladder, unspecified site (CMS/HCC) Social History Tobacco Use Types Packs/Day Years Used Date Smoking Tobacco: Former Cigarettes Smokeless Tobacco: Never Alcohol Use Standard Drinks/Week Comments Never 0 (1 standard drink = 0.6 oz pur e alcohol) [facility] Utilities Answer Date Recorded In the past 12 months has [employer], gas, oil, or water [employer] threatened to shut off services in your [...] any time in the past 12 m [facility], were you homeless or living in a halfway (including now)? No 08/13/2024 Hunger Vital Sign [...] Description 11/11/2024 8:30 AM EDT Hospital Encounter [facility] Main Operating Room [address] [place] [address] Last Mcmanus MD [address] [place] [address] [place] [address] 11/11/2024 8:30 AM EDT - 11/11/2024 10:00 AM EDT Surgery [facility] Main Operating Room [address] [place] [address] Last Mcmanus MD [address] [place] [address] [place] [address] TURBT (TRANSURETHRAL RESECTION OF BLADDER TUMOR) [52653 (CPT )] Scheduled Procedures Name Priority Associated Diagnoses Date/Ti me TURBT (TRANSURETHRAL RESECTION OF BLADDER TUMOR) Malignant neoplasm of urinary bladder, unspecified site (CMS/HCC) 11/11/2024 8:30 AM EDT documented as of this encounter Visit Diagnoses Diagnosis Bladder spasms- Primary Hypertonicity of bladder Malignant neoplasm of urinary bladder, unspecified site (CMS/HCC) Bladder cancer (CMS/HCC)- Primary Malignant neoplasm of bladder, part unspecified Malignant neoplasm of urinary bladder, unspecified site (CMS/HCC) documented in this encounter Care Teams Technical Professional Relationship Specialty Start Date End Date Harley Goodman DO [address] [place] [address] PCP - General 03/02/22 documented as of this encounter
--- OUTSIDE RECORDS SUMMARY | 2024-10-11 19:33 | XMS_ITS | Encounter Summary ---
Author Organization [facility] Address [address] [place] [address] Phone Care Team Providers Care Retort Engineer Name Role Phone Unavailable Primary Care Provider Unavailabl e Encounter Details Date Type Department Care Team (Late st Contact Info) Description 01/16/2022 Orders Only [facility] [address] [place] [address] Conversion, Onbase Social History Tobacco Use Types [...]
--- OUTSIDE RECORDS SUMMARY | 2024-10-11 19:33 | XMS_ITS | Encounter Summary ---
Author Organization [facility] Address [address] [place] [address] Care Team Providers Care Maintenance Mechanic Technician Name Role Phone Harley Goodman DO Primary Care Provider [phone] Reason for Visit * Reason Onset Date Comments bladder spasms 10/08/2024 Encounter Details Date Type Department Care Team (Late st Contact Info) Description 10/08/2024 Telephone [facility] Urology [address] [place] [address] Trice Rodrigez MA bladder spasms Social History Tobacco Use Types Packs/Day Years Used Date Smoking Tobacco: Former Cigarettes Smokeless Tobacco: Never Alcohol Use Standard Drinks/Week Comments Never 0 (1 standard drink = 0.6 oz pur e alcohol) [facility] Utilities Answer Date Recorded In the past 12 months has e electric, gas, oil, or water [employer] threatened to shut off services in your [...] any time in the past 12 m [facility], were you homeless or living [...] encounter Miscellaneous Notes * Telephone Encounter - Shannon Mi MA - 10/09/2024 10:16 AM EDT Called and spoke to patient - advised Dr. Mcmanus will prescribe oxybutin - patient verbalized understanding. Advised patient needs scheduled for another TURBT restaging in 6 weeks. Scheduled for 11/11/24 * Telephone Encounter - Trice Rodrigez MA - 10/08/2024 9:58 AM EDT Since catheter has been removed after TURBT, pt feels like he [...] back with his response. Pt verbalized understanding. documented in this encounter Plan of Treatment Upcoming Encounters Date Type Department Care Team (Latest Contact Info) Description 11/11/2024 8:30 AM EDT Hospital Encounter [facility] Main Operating Room [address] [place] [phone] Last Mcmanus MD [address] [place] [address] Dr [address] [place] [address] 11/11/2024 8:30 AM EDT - 11/11/2024 10:00 AM EDT Surgery [facility] Main Operating Room [address] [place] [phone] Last Mcmanus MD [address] [place] [address] [place] [address] TURBT (TRANSURETHRAL RESECTION OF BLADDER TUMOR) [37733 (CPT )] Scheduled Procedures Name Priority Associated Diagnoses Date/Ti me TURBT (TRANSURETHRAL RESECTION OF BLADDER TUMOR) Malignant neoplasm of urinary bladder, unspecified site (CMS/HCC) 11/11/2024 8:30 AM EDT documented as of this encounter Visit Diagnoses Not on filedocumented in this encounter Care Teams Maintenance Mechanic Technician Relationship Specialty Start Date End Date Harley Goodman DO [address] [place] [address] PCP - General 03/02/22 documented as of this encounter
--- OUTSIDE RECORDS SUMMARY | 2024-10-11 19:33 | XMS_ITS | Encounter Summary ---
Author Organization [facility] Address [address] [place] [address] Care Team Providers Care Chairman & Ceo Name Role Phone Harley Goodman DO Primary Care Provider [phone] Encounter Details Date Type Department Care Team (Late st Contact Info) Description 10/09/2024 Orders Only [facility] Urology [address] [place] [address] Last Mcmanus MD [address] [place] [address] Dr [address] [place] [address] Bladder mass (Primary Dx); Urinary tract infection without hematuria, site unspecified Social History Tobacco Use Types Packs/Day Years Used Date Smoking Tobacco: Former Cigarettes Smokeless Tobacco: Never Alcohol Use Standard Drinks/Week Comments Never 0 (1 standard drink = 0.6 oz pur e alcohol) [facility] Utilities Answer Date Recorded In the past [address] [facility] [employer], gas, oil, or water [employer] threatened to shut off services in your [...] any time in the past 12 m [facility], were you homeless or living in a [place] health care facility (including now)? No 08/13/2024 Hunger Vital Sign [...] Description 11/11/2024 8:30 AM EDT Hospital Encounter [facility] Main Operating Room [address] [place] [address] Last Mcmanus MD [address] [place] [address] [place] [address] 11/11/2024 8:30 AM EDT - 11/11/2024 10:00 AM EDT Surgery [facility] Main Operating Room [address] [place] [address] Last Mcmanus MD [address] [place] [address] [place] [address] TURBT (TRANSURETHRAL RESECTION OF BLADDER TUMOR) [95373 (CPT )] Scheduled Orders Name Type Priority Associated Diagnoses Orde r Schedule CBC and differential Lab Routine Bladder mass Expected: 10/09/2024 (Approximate), Expires: 10/09/2025 Comprehensive metabolic panel Lab Routine Bladder mass Expected: 10/09/2024 (Approximate), Expires: 10/09/2025 Urine culture, routine Microbiology Routine Bladder mass Urinary tract infection without hematuria, site unspecified Expected: 10/09/2024 (Approximate), Expires: 10/09/2025 APTT Lab Routine Bladder mass Expected: 10/09/2024 (Approximate), Expires: 10/09/2025 Protime-INR Lab Routine Bladder mass Expected: 10/09/2024 (Approximate), Expires: 10/09/2025 Scheduled Procedures Name Priority Associated Diagnoses Date/Ti me TURBT (TRANSURETHRAL RESECTION OF BLADDER TUMOR) Malignant neoplasm of urinary bladder, unspecified site (CMS/HCC) 11/11/2024 8:30 AM EDT documented as of this encounter Visit Diagnoses Diagnosis Bladder cancer (CMS/HCC)- Primary Malignant neoplasm of bladder, part unspecified Bladder mass- Primary Neoplasm of uncertain behavior of bladder Urinary tract infection without hematuria, site unspecified Malignant neoplasm of urinary bladder, unspecified site (CMS/HCC) documented in this encounter Care Teams Chairman & Ceo Relationship Specialty Start Date End Date Harley Goodman DO [address] [place] [id number] PCP - General 03/02/22 documented as of this encounter
--- OUTSIDE RECORDS SUMMARY | 2024-10-11 19:34 | XMS_ITS | Encounter Summary ---
Author Organization [facility] Address [address] [place] [address] Care Team Providers Care Shoe Cobbler Name Role Phone Harley Goodman DO Primary Care Provider [phone] Encounter Details Date Type Department Care Team (Late st Contact Info) Description 09/25/[address] [facility] Pre-Anesthesia Clinic [address] [place] [address] Kb Petersen, RN Social History Tobacco Use Types Packs/Day Years Used Date Smoking Tobacco: Former Cigarettes Smokeless Tobacco: Never Alcohol Use Standard Drinks/Week Comments Never 0 (1 standard drink = 0.6 oz pur e alcohol) [facility] Utilities Answer Date Recorded In the past 12 months has e electric, gas, oil, or water [employer] threatened to shut off services in your [...] any time in the past 12 m [facility], were you homeless or living in [...] Description 11/11/2024 8:30 AM EDT Hospital Encounter [facility] Main Operating Room [address] [place] [address] Last Mcmanus MD [address] [place] [address] [place] [address] 11/11/2024 8:30 AM EDT - 11/11/2024 10:00 AM EDT Surgery [facility] Main Operating Room [address] [place] [address] Last Mcmanus MD [address] [place] [address] [place] [address] TURBT (TRANSURETHRAL RESECTION OF BLADDER TUMOR) [78438 (CPT )] Scheduled Procedures Name Priority Associated Diagnoses Date/Ti me TURBT (TRANSURETHRAL RESECTION OF BLADDER TUMOR) Malignant neoplasm of urinary bladder, unspecified site (CMS/HCC) 11/11/2024 8:30 AM EDT documented as of this encounter Visit Diagnoses Not on filedocumented in this encounter Care Teams Shoe Cobbler Relationship Specialty Start Date End Date Harley Goodman DO [address] [place] [address] PCP - General 03/02/22 documented as of this encounter
--- OUTSIDE RECORDS SUMMARY | 2024-10-11 19:34 | XMS_ITS | Encounter Summary ---
Author Organization [facility] Address [address] [place] [address] Care Team Providers Care Filler Leaf Cutter Long Name Role Phone Harley Goodman DO Primary Care Provider [phone] Encounter Details Date Type Department Care Team (Late st Contact Info) Description 09/25/2024 Orders Only [facility] Pre-Anesthesia Clinic [address] [place] [address] Will Pepe, PONY ROUGHER [address] [place], [place] [id number] Social History Tobacco Use Types Packs/Day Years Used Date Smoking Tobacco: Former Cigarettes Smokeless Tobacco: Never Alcohol Use Standard Drinks/Week Comments Never 0 (1 standard drink = 0.6 oz pur e alcohol) [facility] Utilities Answer Date Recorded In the past 12 months has e [employer], gas, oil, or water [employer] threatened to shut off services in your [...] time in the past 12 m [facility], were you homeless or living [...] Description 11/11/2024 8:30 AM EDT Hospital Encounter [facility] Main Operating Room [address] [place] [address] Last Mcmanus MD [address] [place] [address] [place] [address] 11/11/2024 8:30 AM EDT - 11/11/2024 10:00 AM EDT Surgery [facility] Main Operating Room [address] [place] [address] Last Mcmanus MD [address] [place] [address] [place] [address] TURBT (TRANSURETHRAL RESECTION OF BLADDER TUMOR) [72082 (CPT )] Scheduled Procedures Name Priority Associated Diagnoses Date/Ti me TURBT (TRANSURETHRAL RESECTION OF BLADDER TUMOR) Malignant neoplasm of urinary bladder, unspecified site (CMS/HCC) 11/11/2024 8:30 AM EDT documented as of this encounter Visit Diagnoses Not on filedocumented in this encounter Care Teams Filler Leaf Cutter Long Relationship Specialty Start Date End Date Harley Goodman DO [address] [place] [id number] PCP - General 03/02/22 documented as of this encounter
--- OUTSIDE RECORDS SUMMARY | 2024-10-11 19:34 | XMS_ITS | Encounter Summary ---
Author Organization [facility] Address [address] [place] [address] Care Team Providers Care Cyber Engineer Name Role Phone Harley Goodman DO Primary Care Provider [phone] Encounter Details Date Type Department Care Team (Late st Contact Info) Description 09/25/2024 Orders Only [facility] Pre-Anesthesia Clinic [address] [place] [address] Ember Adams, ALBINO Social History Tobacco Use Types Packs/Day Years Used Date Smoking Tobacco: Former Cigarettes Smokeless Tobacco: Never Alcohol Use Standard Drinks/Week Comments Never 0 (1 standard drink = 0.6 oz pur e alcohol) [facility] Utilities Answer Date Recorded In the past 12 months has e electric, gas, oil, or water [employer] threatened to shut off services in your [...] any time in the past 12 m [facility], were you homeless or living in a senior living (including now)? No 08/13/2024 Hunger Vital Sign [...] Description 11/11/2024 8:30 AM EDT Hospital Encounter [facility] Main Operating Room [address] [place] [address] Last Mcmanus MD [address] [place] [address] [place] [address] 11/11/2024 8:30 AM EDT - 11/11/2024 10:00 AM EDT Surgery [facility] Main Operating Room [address] [place] [address] Last Mcmanus MD [address] [place] [address] [place] [address] TURBT (TRANSURETHRAL RESECTION OF BLADDER TUMOR) [92707 (CPT )] Scheduled Procedures Name Priority Associated Diagnoses Date/Ti me TURBT (TRANSURETHRAL RESECTION OF BLADDER TUMOR) Malignant neoplasm of urinary bladder, unspecified site (CMS/HCC) 11/11/2024 8:30 AM EDT documented as of this encounter Visit Diagnoses Not on filedocumented in this encounter Care Teams Cyber Engineer Relationship Specialty Start Date End Date Harley Goodman DO [address] [facility] [phone] PCP - General 03/02/22 documented as of this encounter
--- OUTSIDE RECORDS SUMMARY | 2024-10-11 19:34 | XMS_ITS | Clinical Summary ---
Author Organization [facility] Address [address] [place] [address] Phone Care Team Providers Care Ophthalmic Technician Apprentice Name Role Phone Unavailable Primary Care Provider [...] - 2023-2 5 season) 2023 Influenza Vaccine (#1) 2024 RSV High Risk: (Elderly (60+ ) [...]
--- NOTE | 2024-10-11 20:20 | XR_ITS ---
The [address] [address] Patient Name: LANI LIZAMA MRN: [id number] date: 1950 Sex: M Assigned Patient Location: ER Current Patient Location: [place] Accession/Order Number: [id number] Exam Date: 10/12/2024 08:55 Report Date: 10/12/2024 08:58 At the request of: MARGOT DAUGHERTY MD Procedure: XR chest 1V PORTABLE AP ERECT CHEST 2106 hours CLINICAL HISTORY: weakness and fall yesterday hitting the back of head on toilet COMPARISON: 08/13/2024 A left-sided pacemaker is again visualized. Median sternotomy wires are seen. The heart is top normal in size. There is no vascular congestion. A calcified granuloma is again noted on the right. The lungs, as visualized, are clear. There is no effusion or pneumothorax. The osseous structures are intact. End plate spurring is visualized at the spine. XR/XR chest 1V IMPRESSION: NO ACUTE FINDINGS Impression dictated by: Sally Rodriguez M.D. 10/12/2024 8:58 AM Dictation Location: [place] [address] Electronically authenticated by: [id number] Y Date: 10/12/2024 08:58
[2024-10-11 20:27] LABS: Glucose Urine UA >=1000 mg/dL (NEGATIVE)
--- NOTE | 2024-10-11 20:28 | ED.MALEGU1 ---
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 He has been having urinary frequency urgency and incontinence. He has not been urinating any blood. He did call the surgeon who operated on him and was prescribed Detrol for bladder spasms. The patient's son states that he is concerned that he is becoming septic due to generalized weakness. The patient fell yesterday while trying to go to the bathroom and fell into the toilet. It took him approximately 45 minutes to get himself out of the toilet. He states he struck the back of his head on the toilet when he fell. He does not have any focal weakness numbness or tingling but is generally weak. He does not have any nausea or vomiting. He denies any chest pain or shortness of breath. Related Data Home Medications ?Medication ?Instructions ?Recorded ?Confirmed alprazolam 0.5 mg tablet (Xanax) 0.5 mg PO BID 01/24/23 08/13/24 aspirin 81 mg tablet,delayed 81 mg PO DAILY 01/24/23 08/13/24 release (Adult Aspirin Regimen) cholecalciferol (vitamin D3) 25 25 mcg PO DAILY 01/24/23 08/13/24 mcg (1,000 unit) tablet (Vitamin D3) clopidogrel 75 mg tablet 75 mg PO .HS 01/24/23 08/13/24 empagliflozin 10 mg tablet 10 mg PO QAM 01/24/23 08/13/24 (Jardiance) insulin aspart U-100 100 unit/mL 1 sliding scale dose subcut 01/24/23 08/13/24 (3 mL) subcutaneous pen (Novolog USEASDIRECTD FlexPen U-100 Insulin aspart) isosorbide mononitrate 60 mg 60 mg PO BID 01/24/23 08/13/24 tablet,extended release 24 hr lisinopril 2.5 mg tablet 2.5 mg PO BID 01/24/23 08/13/24 lovastatin 40 mg tablet 40 mg PO .PM 01/24/23 09/26/23 multivitamin with iron-mineral 1 tab PO DAILY 01/24/23 08/13/24 nitroglycerin 0.4 mg sublingual 0.4 mg sublingual Q5M PRN chest 01/24/23 08/13/24 tablet pain pantoprazole 40 mg tablet,delayed 40 mg PO DAILY 01/24/23 08/13/24 release insulin degludec 100 unit/mL (3 14 unit subcut DAILY 08/13/24 08/13/24 mL) subcutaneous pen (Tresiba FlexTouch U-100 insulin) metoprolol succinate 100 mg 150 mg PO DAILY 08/13/24 08/13/24 tablet,extended release 24 hr ranolazine 500 mg tablet,extended 500 mg PO Q12H 08/13/24 08/13/24 release,12 hr rosuvastatin 40 mg tablet 40 mg PO DAILY 08/13/24 08/13/24 spironolactone 25 mg tablet 25 mg PO DAILY 08/13/24 08/13/24 Allergies Allergy/AdvReac Type Severity Reaction Status Date / Time No Known Drug Allergies Allergy Verified 10/11/24 19:44 Review of Systems ROS Status of ROS 10 or more systems reviewed and unremarkable except as noted in history and below [facility] Medical History (Updated 10/11/24 @ 22:55 by Lyssa Alcantar MD) AMI (acute myocardial infarction) ?I21.9 - Acute myocardial infarction, unspecified (ICD-10) Pacemaker ?Z95.0 - Presence of cardiac pacemaker (ICD-10) Anxiety ?F41.9 - Anxiety disorder, unspecified (ICD-10) GERD (gastroesophageal reflux disease) ?K21.9 - Gastro-esophageal reflux disease without esophagitis (ICD-10) Hypertension ?I10 - Essential (primary) hypertension (ICD-10) Diabetes ?E11.9 - Type 2 diabetes mellitus without complications (ICD-10) Surgical History (Updated 01/24/23 @ 19:49 by Cammy Adler) History of heart artery stent ?Z95.5 - Presence of coronary angioplasty implant and graft (ICD-10) Social History (Updated 01/24/23 @ 20:00 by Cammy Adler) Within the past year, how often did you have a drink containing alcohol: never Within the past year, how often did you have six or more drinks on one occasion: never Score interpretation: A score less than 4 is consistent with normal alcohol consumption. Smoking status: Former smoker Non-prescribed substance use: denies use Previous occupational history: works 1 day a week Highest level of school completed/degree received: high school graduate Are you now , , , , never or living with a partner: In a typical week, how many times do you talk on the telephone with family, friends, or neighbors: 3 or more times per week How often do you get together with friends or relatives: once per week How often do you attend muslim or baptism services: 1-3 times per year Little interest or pleasure in doing things: not at all Feeling down, depressed, or hopeless: not at all Feel stressed/tense/nervous/anxious/difficulty sleeping: to some extent Life stressors: other Life stressor details: getting older Exam Narrative Exam Narrative: Vital signs and Nursing Notes reviewed: Patient is afebrile with a normal pulse, blood pressure is soft at 100/66, he is not hypoxic with pulse ox of 97% on room air General: Awake, alert, oriented, pale and weak appearing otherwise no acute distress, lying comfortably on the stretcher HEENT: Normocephalic atraumatic, mucous membranes are moist and pink, eyes are clear, normal conjunctiva, vision is grossly intact, posterior pharynx is normal in appearance. There is no redness, swelling bruising or step-off in the posterior occiput where the patient struck his head when falling yesterday Neck: Supple, no meningeal signs, no anterior or posterior cervical lymphadenopathy Chest: Lungs are clear to auscultation with good air entry, there is no wheezing rhonchi or rales appreciated no accessory muscle use, patient is speaking in complete sentences-no chest wall tenderness to palpation CVS: Regular rate and rhythm S1-S2, no murmurs rubs or gallops, pulses are brisk and equal bilaterally ABD: Soft, nondistended, nontender, no rebound guarding or rigidity, bowel sounds are normal, no pulsatile masses appreciated Extremities: Moving all extremities, no lower extremity tenderness or swelling noted, negative Homans' sign, pulses are brisk and equal bilaterally, small abrasion over the right knee Skin: Normal in appearance without rash,pallor, petechiae or purpura Neuro: No focal deficits;, speech is clear, 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, upper and lower extremity strength and sensation is intact, no gross focal deficits Constitutional Vital Signs, click to edit/add: Last Vital Signs Temp 97.5 F L 10/11/24 19:40 Pulse 84 10/12/24 00:00 Resp 23 H 10/12/24 00:00 BP 130/65 10/12/24 00:00 Pulse Ox 97 10/12/24 00:00 O2 Del Method Room Air 10/11/24 19:40 Course Vital Signs Vital signs: Vital Signs Temperature 97.5 F L 10/11/24 19:40 Pulse Rate 88 10/11/24 19:40 Respiratory Rate 16 10/11/24 19:40 Blood Pressure 100/66 10/11/24 19:40 Pulse Oximetry 97 10/11/24 19:40 Oxygen Delivery Method Room Air 10/11/24 19:40 Temperature 97.5 F L 10/11/24 19:40 Pulse Rate 84 10/12/24 00:00 Respiratory Rate 23 H 10/12/24 00:00 Blood Pressure 130/65 10/12/24 00:00 Pulse Oximetry 97 10/12/24 00:00 Oxygen Delivery Method Room Air 10/11/24 19:40 MDM - Male Genitourinary MDM Narrative Medical decision making narrative: This 73-year-old male who had 2 bladder masses resected at [facility] on September 29 and was discharged home with a Rg catheter that was removed a week later presents for evaluation of generalized weakness with a fall yesterday in the bathroom and urinary frequency urgency and incontinence. He denies any blood in his urine. He has had intermittent fevers for the past several days. He did reach out to the urologist who performed his procedure and was given a prescription for Detrol. His son is concerned that he is septic due to his generalized weakness and recent fall. His neuroexam is normal. He does have a waxy appearance. Vital signs are stable. EKG is a paced rhythm at 60 bpm. He has been on the spiral weaver with stable vital signs and pulse in the 80s to 90s. He was given gentle hydration. Routine labs are reviewed. He has a normal white count of 6.9 with stable hemoglobin of 12.4 and hematocrit of 36.7. Sodium is 137, potassium is 4.2, chloride is 102, CO2 is 22, BUN is 48 and creatinine is 3.23. His prior BUN and creatinine last month were 30 and 1.95 indicating acute kidney injury. CT scan of the brain shows no acute process with mild generalized brain volume loss with no acute intracranial hemorrhage mass infarct or edema, CT scan of the cervical spine does not show any acute cervical spine fracture or dislocation. There is small posterior bulging disks at C3 and C4 and C4 and C5 and C5 and C6 and C6 and 7 levels with associated mild spinal canal stenosis with a mild chronic grade 1 anterolisthesis of C3 on C4, normal thickness of the prevertebral soft tissues, no features of discitis, no chronic compression deformity, facet hypertrophic changes throughout the cervical spine most pronounced on the left side at C3-C4 level with no apical pneumothorax. CT scan of the abdomen pelvis shows a normal heart size, status post tenotomy, pacing leads to the right atrium and right ventricle. Small sized hiatal hernia. Cholelithiasis. No acute process seen in the liver, spleen, pancreas, adrenal glands and right and left renal parenchyma. Mild stranding noted along the right and left kidney. No features of cholecystitis. No pancreatitis. Fullness of the left renal collecting system with a mild stranding around the margins of the left ureter possibly due to underlying distal bladder wall thickening no features of obstructing ureteral stone. Bladder wall thickening and stranding around the bladder suggestive of underlying cystitis with a small volume of air and fluid within the bladder lumen. Moderate stranding noted around the bladder. Slightly enlarged prostate gland. Mild constipation throughout the colon, left colon and sigmoid colon diverticulosis. Dense calcified plaque along the abdominal aorta and common iliac arteries with associated mild to moderate stenosis along the common iliac arteries. Focal moderate to severe stenosis also noted affecting the proximal right and left common iliac arteries right greater than left due to calcified plaque. There were no features of acute appendicitis. The findings on the CT scan were discussed again with the hospitalist and the patient is excepted for admission. He was medicated with IV fluids and Tylenol as well as IV Zosyn. 30 cc/kg fluids was initially ordered but the patient has history of heart disease and his BNP is elevated. He remains hemodynamically stable in the emergency department. Medical Records Attestation: I reviewed the patient's medical records. Lab Data Attestation: I reviewed the patient's lab results. Labs: Lab Results 10/11/24 10/11/24 Range/Units 20:09 20:50 WBC 6.9 (4.0-11.0) 10^3/uL RBC 4.14 L (4.70-6.10) 10^6/uL Hgb 12.4 L (14.0-18.0) g/dL Hct 36.7 L (42.0-54.0) % MCV 88.6 (80.0-94.0) fL MCH 30.0 (25.9-34.0) pg MCHC 33.8 (29.9-35.2) g/dL RDW 14.6 (11.0-15.0) % Plt Count 253 (150-450) 10^3/uL MPV 9.3 L (9.5-13.5) fL Neut % (Auto) 73.6 (43.0-75.0) % Lymph % (Auto) 14.0 L (20.5-60.0) % [place] % (Auto) 11.0 (1.7-12.0) % Eos % (Auto) 0.6 L (0.9-7.0) % Baso % (Auto) 0.1 L (0.2-2.0) % Neut # (Auto) 5.1 (1.4-6.5) 10^3/uL Lymph # (Auto) 1.0 L (1.2-3.8) 10^3/uL [place] # (Auto) 0.8 (0.3-0.8) 10^3/uL Eos # (Auto) 0.0 (0.0-0.7) 10^3/uL Baso # (Auto) 0.0 (0.0-0.1) 10^3/uL Abs Immat Gran (auto) 0.05 H (0.00-0.03) 10^3/uL Imm/Tot Granulo (auto) 0.7 H (0.0-0.5) % Sodium 137 (136-145) mmol/L Potassium 4.2 (3.5-5.1) mmol/L Chloride 102 (98-107) mmol/L Carbon Dioxide 22.8 (21.0-32.0) mmol/L Anion Gap 16.4 BUN 48.0 H (7.0-18.0) mg/dL Creatinine 3.23 H (0.70-1.30) mg/dL Est GFR ( Amer) 23 L (>=60 mL/min/1.73m^2) Est GFR (Non-Af Amer) 19 L (>=60 mL/min/1.73m^2) BUN/Creatinine Ratio 14.9 Glucose 139 H (74-106) mg/dL Lactate 1.3 (0.4-2.0) mmol/L Calcium 9.4 (8.5-10.1) mg/dL Magnesium 2.2 (1.8-2.4) mg/dL Total Bilirubin 0.8 (0.2-1.0) mg/dL AST 27 (15-37) U/L ALT 26 (16-63) U/L Alkaline Phosphatase 108 (46-116) U/L Troponin I High Sens 18.2 (4.0-76.1) pg/mL NT-Pro-B Natriuret Pep 2625.0 H* (<=900.0) pg/mL Total Protein 8.2 (6.4-8.2) g/dL Albumin 3.3 L (3.4-5.0) g/dL Globulin 4.9 g/dL Albumin/Globulin Ratio 0.7 Urine Color Yellow (YELLOW) Urine Clarity Clear (CLEAR) Urine pH 6.0 (5.0-9.0) Ur Specific [place] 1.025 (1.005-1.025) Urine Protein >=300 A (NEG/TRACE) mg/dL Urine Glucose (UA) >=1000 A (NEGATIVE) mg/dL Urine Ketones Trace A (NEGATIVE) mg/dL Urine Occult Blood Large A (NEGATIVE) Urine Nitrite Negative (NEGATIVE) Urine Bilirubin Negative (NEGATIVE) Urine Urobilinogen 1.0 (0.2-1.0) EU/dL Ur Leukocyte Esterase Small A (NEGATIVE) Urine RBC None seen (0-2) #/HPF Urine WBC 75-100 A (NONE SEEN) #/HPF Ur Squamous Epith Cells Few A (NONE/RARE) #/LPF Urine Crystals Seen A (None Seen) #/HPF Amorphous Sediment Rare Urine Bacteria Moderate A (NONE SEEN) #/HPF Urine Casts None seen (NONE SEEN) #/LPF Urine Mucus None seen (NONE SEEN) Ur [place] [place] Data Attestation: I personally reviewed and interpreted this ECG as follows: (Electronic ventricular paced rhythm at 60bpm with pacer spikes noted) Discharge Plan Discharge Chief Complaint: Urogenital-Male Clinical Impression: Urinary tract infection, Acute kidney injury, Generalized weakness, Fall from standing Prescriptions / Home Meds: No Action metoprolol succinate 100 mg tablet extended release 24 hr 150 mg PO DAILY ranolazine 500 mg tablet extended release 12 hr 500 mg PO Q12H rosuvastatin 40 mg tablet 40 mg PO DAILY spironolactone 25 mg tablet 25 mg PO DAILY insulin degludec [Tresiba FlexTouch U-100] 100 unit/mL (3 mL) insulin pen 14 unit subcut DAILY pantoprazole 40 mg tablet,delayed release (DR/EC) 40 mg PO DAILY isosorbide mononitrate 60 mg tablet extended release 24 hr 60 mg PO BID Jardiance 10 mg tablet 10 mg PO QAM alprazolam [Xanax] 0.5 mg tablet 0.5 mg PO BID clopidogrel 75 mg tablet 75 mg PO .HS lisinopril 2.5 mg tablet 2.5 mg PO BID lovastatin 40 mg tablet 40 mg PO .PM aspirin [Adult Aspirin Regimen] 81 mg tablet,delayed release (DR/EC) 81 mg PO DAILY multivitamin with iron-mineral Tablet 1 tab PO DAILY cholecalciferol (vitamin D3) [Vitamin D3] 25 mcg (1,000 unit) tablet 25 mcg PO DAILY insulin aspart U-100 [Novolog FlexPen U-100 Insulin] 100 unit/mL (3 mL) insulin pen 1 sliding scale dose subcut USEASDIRECTD nitroglycerin 0.4 mg tablet, sublingual 0.4 mg sublingual Q5M PRN (Reason: chest pain) Print Language: Uzbek Referrals: Harley Goodman DO [Primary Care Provider, Internal Medicine] - 1 week
[2024-10-11 20:35] LABS: Cast Seen? NONE SEEN #/LPF (NONE SEEN); Crystals Seen? Seen #/HPF (None Seen); Urine Culture Indicated YES-FRMC
[2024-10-11 21:00] LABS: Hematocrit 36.7 % (42.0-54.0); Hemoglobin 12.4 g/dL (14.0-18.0); Immature Granulocytes Abs Auto 0.05 10^3/uL (0.00-0.03); Immature Granulocytes Pct Auto 0.7 % (0.0-0.5); Lymphocytes Absolute Auto 1.0 10^3/uL (1.2-3.8); Mean Corpuscular HGB Conc 33.8 g/dL (29.9-35.2); Mean Corpuscular Hemoglobin 30.0 pg (25.9-34.0); Mean Corpuscular Volume 88.6 fL (80.0-94.0); Platelet Count 253 10^3/uL (150-450); Red Blood Count 4.14 10^6/uL (4.70-6.10); White Blood Count 6.9 10^3/uL (4.0-11.0)
[2024-10-11 21:17] LABS: Alanine Aminotransferase 26 U/L (16-63); Albumin Globulin Ratio 0.7; Albumin Level 3.3 g/dL (3.4-5.0); Alkaline Phosphatase 108 U/L (46-116); Anion Gap 16.4; Aspartate Amino Transferase 27 U/L (15-37); Blood Urea Nitrogen 48.0 mg/dL (7.0-18.0); Calcium 9.4 mg/dL (8.5-10.1); Carbon Dioxide 22.8 mmol/L (21.0-32.0); Chloride 102 mmol/L (98-107); Estimated GFR (African America 23 (>=60 mL/min/1.73m^2); Estimated GFR (Non-African Ame 19 (>=60 mL/min/1.73m^2); Globulin 4.9 g/dL; Glucose 139 mg/dL (74-106); Potassium 4.2 mmol/L (3.5-5.1); Sodium 137 mmol/L (136-145); Total Protein 8.2 g/dL (6.4-8.2)
[2024-10-11 21:25] LABS: Magnesium 2.2 mg/dL (1.8-2.4)
[2024-10-11 21:27] LABS: NT Pro B Type Natriuretic Pept 2625.0 pg/mL (<=900.0)
[2024-10-11 21:34] LABS: Lactate/Lactic Acid 1.3 mmol/L (0.4-2.0)
--- NOTE | 2024-10-11 21:45 | ECG_ITS ---
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
[2024-10-11] MEDS: ACETAMINOPHEN 325 MG TABLET 650 MG PO (22:01)
[2024-10-11] MEDS: PIPERACILLIN SODIUM/TAZOBACTAM 3.375 GM in 0.9 % SODIUM CHLORIDE 50 ML IV (22:02)
[2024-10-11] MEDS: 0.9 % SODIUM CHLORIDE 1,000 ML 100 ML IV (23:22)
[2024-10-12] VITALS (9 sets, daily range): BP systolic 105–144; BP diastolic 64–77; PULSE 75–93; TEMP 36.1–36.8; O2SAT 94–98; BMI 27.3
--- OUTSIDE RECORDS SUMMARY | 2024-10-12 02:28 | XMS_ITS | CCD ---
Author Organization [facility] CliniSyme Care Team Providers Care Paid Search Marketing Strategist Name Role Phone NETO BISHOPAB Nakul Admitting Unavailable PINKY BISHOP Attending Unavailable HARLEY CRESPO Referring Unavailable HARLEY CRESPO Primary Care Unavailable ELTAADARSH, PINKY A Surgeon Unavailable [place] Procedure Practitioner Unavailab le VIJAY, PINKY Mota Admitting Unavailable PINKY BISHOP Attending Unavailable HARLEY CRESPO Referring Unavailable HARLEY CRESPO Primary Care Unavailable Arlen Kwong Unavailable [place] Unavailable Shannon Escobar Unavailable HARLEY CRESPO Primary Care Physician Harley Crespo DO Primary Care Provider DO Harley Crespo Primary Care Provider [phone] JULY Kwong Attending Provider [phone] JessicangDO Gagan walls Admit Provider JessicangDO Gagan walls Attending Provider Harley Crespo [...] ALVA ., DR OBDULIO Cisneros Consulting Unavailable JSAPAL ACEVES Consulting Unavailable CHERIE, DR CARVALHO Admitting [...] Provider Cherie BRUMFIELD, Harley Primary Care Provider Lani LEMUS, Tamara Álvarez Attending Provider Cherie [...] Date of Onset Reaction(s) Facility (1 source) 72675,00; Translations: [Unknown] Propensity to adverse reactions (disorder) 02-10-20 [facility] Repository (8 sources) semaglutide; Translations: [semaglutide] Allergy to substance 05-28-19 Gastrointestinal Upset [facility] Comment on above: constipation (1 [...] six hours as needed for pain HYDROcodone-acetaminophen ([place]) 5-325 MG tablet TAKE 1 TABLET BY [...] not to exceed 1.8mg/day subcut Liraglutide (Victoza 3-Micehlet) 0.6 mg/0.1 mL (18 mg/3 mL) pen [...] procedure, # 2 tab(s), Refills(s) 0, Pharmacy: [facility]/pharmacy #[id number], 169, cm, 08/03/24 13:56:00 EDT, [...] 18, 2023 11:58am [facility] Farxiga 10 MG 1 tablet Orally Once a day Not-Taking/PRN docusate sodium 100 mg oral capsule (20 sources) Start: 06-18-2023 End: 08-12-2023 take 1 capsule by mouth once daily Docusate Sodium 100 mg capsule Discontinued 100 MG PO Daily June 18, 2023 12:00am August 12, 2023 8:42am take 1 capsule by mo [facility] every twenty-four hours Colace 100 MG 1 [...] 12:00am July 10, 2021 9:59am triamcinolone acetonide 0.56685 mg/mg topical ointment (1 source) Corticosteroid triamcinolone [...] 25%, LVH, normal RV size/function - 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,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 Coronary atherosclerosis and other heart disease (20 sources) Multi vessel coronary artery disease; Translations: [Atherosclerotic heart disease of [place] coronary artery without angina pectoris] Onset: 3 [...] sources) Long-term current use of insulin; Translations: [[facility] (current) use of insulin] Episodic Other aftercare [...] 10-12-2022 10-12-2022 Episodic Other aftercare (1 source) 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 Pt verbalized understanding. Normal [facility] Office Visiton 10-08-2024 Follow-up visit [id number] Lani Lizama 1950 M Date Provider Department Center 10/08/2024 Scott-PINKY BISHOP MARCELINO Armas Family History Problem Relation Age of Onset Heart attack Mother Other Father Other Brother Heart attack Maternal Grandmother Heart attack Maternal Grandfather Family Status - Relation Status Age at Mother Father Brother Maternal Grandmother Maternal Grandfather Level of Service:13627 [place] OFFICE/OUTPATIENT ESTABLISHED LOW MDM 20 MIN Normal [facility] HISTOLOGY - TISSUE EXAMon LAB AP CASE REPORT Normal [facility] Comment on above: Order Comment: Pre-o p diagnosis:Lesion of bladder [N32.9] Result Comment: Surg ical Pathology Case: [id number] Authorizing Provider: Last Mcmanus MD Collected: 09/29/2024 1432 Ordering Location: [facility] Main Operating Room Received: 09/29/2024 1514 Pathologist: Kevin Dawson MD Specimen: Urinary Bladder, Bladder Tumor Performed By: #### L [id number] #### [facility] ([facility]) [address] [place] [address] LAB AP CLINICAL INFORMATION [facility] Comment on above: Order Comment: Pre-o p diagnosis:Lesion of bladder [N32.9] Result Comment: Post -Op Diagnoses N32.9 - Lesion of bladder [ICD-10-CM] Performed By: #### L [id number] #### [facility] (BEAKER) [address] [place] [address] LAB AP DIAGNOSIS COMMENT This case was reviewed in intradepartmental consensus with agreement of the diagnosis. [facility] Comment on above: Order Comment: Pre-o p diagnosis:Lesion of bladder [N32.9] Performed By: #### L [id number] #### [facility] ([facility] [address] [place] [address] LAB AP GROSS DESCRIPTION [facility] Comment on above: Order Comment: Pre-o p diagnosis:Lesion of bladder [N32.9] Result Comment: A. U rinary Bladder. The specimen is received in formalin labeled Lani Mega and bladder tumor. It consists of a 2.7 x 2.5 x 0.6 cm aggregate of red-pink to vázquez-brown, rubbery, shaggy fragments of soft tissue. The specimen is entirely submitted in 3 cassettes. Sangeetha Muro, Pathologists' Child Psychometrist student Hugo Suárez, Pathologists' Child Psychometrist Performed By: #### L [id number] #### [facility] (BEAKER) [address] [place] [address] LAB AP MICROSCOPIC DESCRIPTION Microscopic examination performed. [facility] Comment on above: Order Comment: Pre-o p diagnosis:Lesion of bladder [N32.9] Performed By: #### L [id number] #### [facility] ([facility] [address] [place] [address] LAB AP PRELIMINARY DIAGNOSIS [facility] Comment on above: Order Comment: Pre-o p diagnosis:Lesion of bladder [N32.9] Performed By: #### L [id number] #### [facility] ([facility] [address] [place] [address] LAB AP REPORT FINAL DIAGNOSIS NARRATIVE [facility] Comment on above: Order Comment: Pre-o p diagnosis:Lesion of bladder [N32.9] Result Comment: A. B ladder tumor, transurethral resection: - Invasive high-grade papillary urothelial carcinoma. - Small fragments of muscularis propria present, uninvolved by neoplasm. - See synoptic report. at 1104 EDT Performed By: #### L [id number] #### [facility] ([facility]) [address] [place] [address] LAB AP SYNOPTIC CHECKLIST [facility] Comment on above: Order Comment: Pre-o [...] Present in specimen Performed By: #### L [id number] #### [facility] ([facility] [address] [place] [address] [facility] 09-29-2024 HP ----- ----- Attestation signed [...] the plan. Marquis Baltazar MD 09/29/2024 Normal [facility] NON-CYLINDER DYER CYTOLOGY - CELLULAR EXAMon 09-29-2024 LAB AP CASE REPORT Normal [facility] Comment on above: Order Comment: Pre-o p diagnosis:Lesion of bladder [N32.9] Result Comment: Non- gynecologic Cytology Case: [id number] Authorizing Provider: Last Mcmanus MD Collected: 09/29/2024 1410 Ordering Location: [facility] Main Operating Room Received: 09/30/2024 0804 Pathologist: Omayra Sullivan MD Specimen: Urine Performed By: #### L [id number] ####[facility] (BEAKER)[address] [place] [address] LAB AP CLINICAL INFORMATION [facility] Comment on above: Order Comment: Pre-o p diagnosis:Lesion of bladder [N32.9] Result Comment: Post -Op Diagnoses N32.9 - Lesion of bladder [ICD-10-CM] Performed By: #### L [id number] ####[facility] (BEAKER)[address] [place] [address] LAB AP DIAGNOSIS COMMENT See also concurrent surgical case, [id number]. [facility] Comment on above: Order Comment: Pre-o p diagnosis:Lesion of bladder [N32.9] Performed By: #### L [id number] ####[facility] (BEAKER)[address] [place] [address] LAB AP GROSS DESCRIPTION [facility] Comment on above: Order Comment: Pre-o p diagnosis:Lesion of bladder [N32.9] Result Comment: 80 m L clear, yellow fluid Performed By: #### L [id number] ####[facility] (BEAKER)[address] [place] [address] LAB AP REPORT FINAL DIAGNOSIS NARRATIVE [facility] Comment on above: Order Comment: Pre-o p diagnosis:Lesion of bladder [N32.9] Result Comment: Val gaitan, cystoscopic: - Atypical urothelial cells. - Marked acute inflammation. 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 at 1805 EDT Performed By: #### L [id number] ####[facility] (BEAKER)[address] [place] [address] POCT GLUCOSE METER UNSOLICIT ED RESULTSon 09-29-2024 Glucose [Mass/Vol] 143 mg/dL High 70-105 [facility] Comment on above: Order Comment: Waive d Testing in the ED is performed under the ED CLIA certificate #[id number]. Result Comment: abdon iso4 Performed By: #### L [id number] #### [facility] (BEAKER) [address] [place] [address] Glucose [Mass/Vol] 211 mg/dL High 70-105 [facility] Comment on above: Order Comment: Waive d Testing in the ED is performed under the ED CLIA certificate #[id number]. Result Comment: acas til5 Performed By: #### L [id number] #### [facility] (BEAKER) [address] [place] [address] HPon 09-25-2024 HP Pre-Anesthesia Clini c 09/25/24 Pt presents for Pre Anesthesia Clinic visit with son. Pt is scheduled 09/29/[address] Mcmanus to under go procedure: TURBT under General on 09/29/24. Harley Crespo, DO [address] [facility] [address] [facility]/pharmacy #[id number] [place], [place] [address] [facility] [address] [address] [facility] - [place], [place] - [address] [place] [address] [place] [address] [facility] [address] Subjective Vitals: 09/25/24 0856 BP: 153/74 Pulse: 80 Resp: 18 Temp: 36.3 ???C (97.4 ???F) SpO2: 98% Allergies[1] Medication Documentation Review Audit Reviewed by Shannon Mi MA (Electric Meter Installer Helper) on 08/28/24 at 0832 Medication Order Taking? Sig Documenting Provider Last Dose Status ALPRAZolam (Xanax) 0.5 mg tablet [id number] Take 1 tablet by mouth in the morning, afternoon, and at bedtime. Historical Provider, Active amLODIPine (Norvasc) 5 mg tablet [id number] Take 1 tablet (5 mg) by mouth in the morning for 30 doses. Graeme Sorensen MD Active aspirin 81 mg chewable tablet [id number] Chew 1 tablet every day by oral route. Historical ProviderMD Active cholecalciferol (Vitamin D3) 25 MCG (1000 units) tablet [id number] Take 1,000 Units by mouth in the morning. Racquel ProviderMD Active clopidogrel (Plavix) 75 mg tablet [id number] Take 1 tablet by mouth in the morning. Racquel Marcelo MD Active docusate sodium (Colace) 100 mg capsule [id number] Take 100 mg by mouth in the morning. Racquel Marcelo MD Active empagliflozin (Jardiance) 10 mg [id number] Take 1 tablet every day by oral route. Racquel ProviderMD Active insulin aspart (NovoLOG) 100 unit/mL injection vial [id number] Inject 10 Units under the skin with breakfast, with lunch, and with evening meal. Sliding scale Racquel ProviderMD Active insulin detemir (Levemir) 100 unit/mL injection [id number] Inject 5 Units under the skin two times daily. Racquel Marcelo MD Active isosorbide mononitrate ER (Imdur) 60 mg 24 hr tablet [id number] Take 1 tablet (60 mg) by mouth 2 times daily. Carlos A Duarte MD 08/20/24 235 metoprolol succinate XL (Toprol-XL) 50 mg 24 hr tablet [id number] Take 3 tablets (150 mg) by mouth in the morning for 97 doses. Do not crush or chew. Aramis Sellers MD 08/20/24 235 nitroglycerin (Nitrostat) 0.[id number] 1 TABLET UNDER TONGUE EVERY 5 MINS, UP TO 3 DOSES NEEDED FOR CHEST PAIN Pinky Bishop MD Active pantoprazole (ProtoNix) 40 mg EC tablet [id number] TAKE 1 TABLET BY MOUTH DAILY ON AN EMPTY STOMACH FOLLOWED BY BREAKFAST 30 MINUTES AFTER Racquel Marcelo MD Active ranolazine (Ranexa) 500 mg 12 hr tablet [id number] Take 1 tablet (500 mg) by mouth two times daily. Do not crush, chew, or split. Pinky Bishop MD Active rosuvastatin (Crestor) 40 mg tablet [id number] TAKE 1 TABLET BY MOUTH AT BEDTIME Kevin Arteaga MD Active spironolactone (Aldactone) 25 mg tablet [id number] Take 1 tablet (25 mg) by mouth in the morning. Pinky Bishop MD Active thiamine (Vitamin B-1) 100 mg tablet [id number] Take 100 mg by mouth every other day. Historical Provider, Active thiamine (Vitamin B-1) 250 mg tablet [id number] Take 250 mg by mouth every other day. Historical Provider, Active Immunization History Administered Date(s) Administered Influenza Whole 01/19/2008 Influenza, High Dose Seasonal, Preservative Free 01/16/2017 Influenza, Seasonal, Quadrivalent, Adjuvanted 12/15/2021 Influenza, injectable, quadrivalent, preservative free 11/30/2016 Influenza, seasonal, injectable 12/13/2010, 01/23/2012 Influenza, trivalent, adjuvanted 01/17/2018 Novel [id number], preservative-free 01/27/2009 Pfizer SARS-CoV-2 Vaccination 05/30/2020, 06/21/2020, [...] Pt reports had recent labs done at [facility]. PAC - RN to obtain results of preop labs. EKG on 08/13/24 : Biventricular Pacer Patient was recently hospitalized on 08/14/24 with NSTEMI and ideally needed coronary angiogram, however patient referred to be discharged. Medications were adjusted particular Norvasc added to his regimen and he was discharged on (more content not included)... Normal [facility] Orders Onlyon 09-25-2024 Orders Only [id number] Lani Lizama Nakul 1950 M Date Provider Department Center 09/25/2024 Iliana-LATON[facility] Family History Problem Relation Age of Onset Heart attack Mother Other Father Other Brother Heart attack Maternal Grandmother Heart attack Maternal Grandfather Family Status - Relation Status Age at Mother Father Brother Maternal Grandmother Maternal Grandfather Normal [facility] Orders Only [id number] Lani Lizama 1950 M Date Provider Department Center 09/25/2024 ALEX HODGES [facility] C Family History Problem Relation Age of Onset Heart attack Mother Other Father Other Brother Heart attack Maternal Grandmother Heart attack Maternal Grandfather Family Status - Relation Status Age at Mother Father Brother Maternal Grandmother Maternal Grandfather Normal [facility] Orders Only [id number] Lani Lizama 1950 M Date Provider Department Center 09/25/2024 ROCIO HERNANDEZ [facility] C Family History Problem Relation Age of Onset Heart attack Mother Other Father Other Brother Heart attack Maternal Grandmother Heart attack Maternal Grandfather Family Status - Relation Status Age at Mother Father Brother Maternal Grandmother Maternal Grandfather Normal [facility] Orders Only [id number] Lani Lizama 1950 M Date Provider Department Center 09/25/2024 ROCIO HERNANDEZ [facility] C Family History Problem Relation Age of Onset Heart attack Mother Other Father Other Brother Heart attack Maternal Grandmother Heart attack Maternal Grandfather Family Status - Relation Status Age at Mother Father Brother Maternal Grandmother Maternal Grandfather Normal [facility] Pre-Admission Testingon 08-31 Pre-Admission Testing [id number] [place] Lizama 1950 M Date Provider Department Center 09/25/202462982-[id number] [facility] C Family History Problem Relation Age of Onset Heart attack Mother Other Father Other Brother Heart attack Maternal Grandmother Heart attack Maternal Grandfather Family Status - Relation Status Age at Mother Father Brother Maternal Grandmother Maternal Grandfather Normal [facility] 36on 09-21-2024 36 Patient would like p reop lab order to be faxed to [facility] fax#[phone]. Thank you This phone message was created by the Ambulatory float staff. If you need network support manager follow up regarding this patient, please make your appropriate clinic staff member aware. Thank you. Normal [facility] Urine Cultureon 09-21-2024 Bacteria identified Cx Nom (U) >100,000 colonies/ml mixed bacterial skin contaminants 2 Days PERFORMED BY: [facility] [address] [place] [id number] PATHOLOGIST TORTILLA MAKER CARSON ADAMES M.D. Normal [facility] Comment on above: Performed By: #### C UU #### [facility] [address] [place] [address] [facility] Orders Onlyon 09-18-2024 Orders Only [id number] Lani Lizama 1950 [facility] Provider Department Center 09/18/20242003YING BADILLOGAGAN [facility] Family History Problem Relation Age of Onset Heart attack Mother Other Father Other Brother Heart attack Maternal Grandmother Heart attack Maternal Grandfather Family Status - Relation Status Age at Mother Father Brother Maternal Grandmother Maternal Grandfather Normal [facility] Orders Onlyon 09-02-2024 Orders Only [id number] Lani Lizama 1950 M Date Provider Department Center 09/02/20242003YING BADILLOGAGAN [facility] Family History Problem Relation Age of Onset Heart attack Mother Other Father Other Brother Heart attack Maternal Grandmother Heart attack Maternal Grandfather Family Status - Relation Status Age at Mother Father Brother Maternal Grandmother Maternal Grandfather Normal [facility] APTTon 08-28-2024 ACTIVATED PARTIAL THROMBOPLASTIN TIME IN PPP BY COAGULATION ASSAY 29.3 Seconds Normal 25.0-35.0 [facility] Comment on above: Result Comment: Clin ical significance of the APTT is questionable in the presence of heparin. Performed By: #### L [id number] #### [facility] (BEAKER) [address] [place] [address] CBC WITH AUTO DIFFERENTIALon 08-28-2024 Basophils (Bld) [#/Vol] 0.09 10*3/uL Normal 0.00-0.20 [facility] Comment on above: Performed By: #### L [id number] #### [facility] (BEAKER) [address] [place] [address] Basophils/100 WBC (Bld) 0.9 % Normal 0.0-1.0 [facility] Comment on above: Performed By: #### L [id number] #### [facility] ([facility] [address] [place] [address] Eosinophils (Bld) [#/Vol] 0.17 10*3/uL Normal 0.00-0.50 [facility] Comment on above: Performed By: #### L [id number] #### [facility] ([facility]) [address] [place] [address] Eosinophils/100 WBC (Bld) 1.8 % Normal 0.0-6.0 [facility] Comment on above: Performed By: #### L [id number] #### [facility] ([facility]) [address] [place] [address] Erythrocyte distribution width (RBC) [Ratio] 14.1 % Normal 11.5-15.0 [facility] Comment on above: Performed By: #### L [id number] #### [facility] ([facility]) [address] [place] [address] ERYTHROCYTE MEAN CORPUSCULAR HEMOGLOBIN CONCENTRATION (G/DL) BY AUTOMATED 32.1 g/dL Normal 32.0-35.0 [facility] Comment on above: Performed By: #### L [id number] #### [facility] ([facility]) [address] [place] [address] Hematocrit (Bld) [Volume fraction] 44.8 % Normal 39.0-50.0 [facility] Comment on above: Performed By: #### L [id number] #### [facility] (BEAKER) [address] [place] [address] Hemoglobin (Bld) [Mass/Vol] 14.4 g/dL Normal 13.0-17.0 [facility] Comment on above: Performed By: #### L [id number] #### [facility] ([facility] [address] [place] [address] Immature granulocytes (Bld) [#/Vol] 0.06 10*3/uL Normal 0.00-0.20 [facility] Comment on above: Performed By: #### L [id number] #### [facility] ([facility]) [address] [place] [address] Immature granulocytes/100 WBC (Bld) 0.6 % Normal 0.0-1.0 [facility] Comment on above: Performed By: #### L [id number] #### [facility] ([facility]) [address] [place] [address] Lymphocytes (Bld) [#/Vol] 1.81 10*3/uL Normal 1.20-4.00 [facility] Comment on above: Performed By: #### L [id number] #### [facility] ([facility]) [address] [place] [address] Lymphocytes/100 WBC (Bld) 18.9 % Low 20.0-45.0 [facility] Comment on above: Performed By: #### L [id number] #### [facility] ([facility]) [address] [place] [address] MCH (RBC) [Entitic mass] 29.2 pg Normal 27.0-33.0 [facility] Comment on above: Performed By: #### L [id number] #### [facility] ([facility]) [address] [place] [address] MCV (RBC) [Entitic vol] 90.9 fL Normal 82.0-98.0 [facility] Comment on above: Performed By: #### L [id number] #### [facility] ([facility]) [address] [place] [address] Monocytes (Bld) [#/Vol] 0.76 10*3/uL Normal 0.10-1.00 [facility] Comment on above: Performed By: #### L [id number] #### [facility] (BEAKER) [address] [place] [address] Monocytes/100 WBC (Bld) 7.9 % Normal 5.0-12.0 [facility] Comment on above: Performed By: #### L [id number] #### [facility] ([facility] [address] [place] [address] Neutrophils (Bld) [#/Vol] 6.71 10*3/uL Normal 1.60-7.60 [facility] Comment on above: Performed By: #### L [id number] #### [facility] ([facility]) [address] [place] [address] Neutrophils/100 WBC (Bld) 69.9 % Normal 40.0-72.0 [facility] Comment on above: Performed By: #### L [id number] #### [facility] ([facility]) [address] [place] [address] NRBC (PER 100 WBCS) BY AUTOMATED COUNT 0.0 % Normal 0 [facility] Comment on above: Performed By: #### L [id number] #### [facility] ([facility]) [address] [place] [address] PLATELETS (10*3/UL) IN BLOOD AUTOMATED COUNT 278 10*3/uL Normal 150-400 [facility] Comment on above: Performed By: #### L [id number] #### [facility] ([facility]) [address] [place] [address] RBC (Bld) [#/Vol] 4.93 10*6/uL Normal 4.20-5.70 [facility] Comment on above: Performed By: #### L [id number] #### [facility] ([facility] [address] [place] [address] WBC (Bld) [#/Vol] 9.60 10*3/uL Normal 4.00-10.60 [facility] Comment on above: Performed By: #### L [id number] #### [facility] (BEAKER) [address] [place] [address] COMPREHENSIVE METABOLIC PANE Mike 08-28-2024 Albumin [Mass/Vol] 4.5 g/dL Normal 3.5-5.7 [facility] Comment on above: Performed By: #### L [id number] ####[facility] (BEAKER)[address] [place] [address] ALP [Catalytic activity/Vol] 117 U/L High 34-104 [facility] Comment on above: Performed By: #### L [id number] ####[facility] (BEAKER)[address] [place] [address] ALT [Catalytic activity/Vol] 17 U/L Normal 7-52 [facility] Comment on above: Performed By: #### L [id number] ####[facility] (BEAKER)[address] [place] [address] Anion gap [Moles/Vol] 11 mmol/L Normal 7-20 [facility] Comment on above: Performed By: #### L [id number] ####[facility] (BEAKER)[address] [place] [address] AST [Catalytic activity/Vol] 20 U/L Normal 13-39 [facility] Comment on above: Performed By: #### L [id number] ####[facility] (BEAKER)[address] [place] [address] Bilirubin [Mass/Vol] 0.6 mg/dL Normal 0.3-1.0 [place] Comment on above: Performed By: #### L [id number] ####[facility] (BEAKER)[address] [place] [address] Calcium [Mass/Vol] 9.6 mg/dL Normal 8.6-10.3 [facility] Comment on above: Performed By: #### L [id number] ####[facility] (BEAKER)[address] [place] [address] Chloride [Moles/Vol] 105 mmol/L Normal 98-107 [place] Comment on above: Performed By: #### L [id number] ####[facility] (BEAKER)[address] [place] [address] CO2 [Moles/Vol] 28 mmol/L Normal 21-31 [facility] Comment on above: Performed By: #### L [id number] ####[facility] (BEAKER)[address] [place] [address] Creatinine [Mass/Vol] 1.95 mg/dL High 0.70-1.30 [facility] Comment on above: Performed By: #### L [id number] ####[facility] ([facility] [place] [address] GLOMERULAR FILTRATION RATE ML/MIN/1.73 SQ M.PREDICTED 35.9 mL/min/1.73m*2 Low >60.0 [facility] Comment on above: Result Comment: [facility]???s estimated glomerular filtration rate (eGFR) will [...] of individuals. Performed By: #### L [id number] ####[facility] (BEAKER)[address] [place] [address] Glucose [Mass/Vol] 185 mg/dL High 70-100 [facility] Comment on above: Performed By: #### L [id number] ####[facility] (BEAKER)[address] [place] [address] Potassium [Moles/Vol] 5.9 mmol/L High 3.5-5.1 [facility] Comment on above: Performed By: #### L [id number] ####[facility] (BEAKER)[address] [place] [address] Protein [Mass/Vol] 7.7 g/dL Normal 6.0-8.3 [facility] Comment on above: Performed By: #### L [id number] ####[facility] ([facility] [place] [address] Sodium [Moles/Vol] 138 mmol/L Normal 136-145 [facility] Comment on above: Performed By: #### L [id number] ####[facility] ([facility])[address] [place] [address] Urea nitrogen [Mass/Vol] 30 mg/dL High 7-25 [facility] Comment on above: Performed By: #### L [id number] ####[facility] ([facility])[address] [place] [address] UREA NITROGEN/CREATININE (MASS RATIO) IN SER/PLAS 15.4 [facility] Comment on above: Performed By: #### L [id number] ####[facility] ([facility])[address] [place] [address] Lab[place] 08-28-2024 Lab [id number] Lani Lizama 1950 M Date Provider Department Center 08/28/2024 2245-[facility] OPD LAB RESOURCE [facility]PD [place] [facility] C Family History Problem Relation Age of Onset Heart attack Mother Other Father Other Brother Heart attack Maternal Grandmother Heart attack Maternal Grandfather Family Status - Relation Status Age at Mother Father Brother Maternal Grandmother Maternal Grandfather Normal [facility] Office Visiton 08-28-2024 Follow-up visit [id number] Dorado 1950 M Date Provider Department Center 08/28/2024 [id number], OBI [facility] URO Second Fl Family History Problem Relation Age of Onset Heart attack Mother Other Father Other Brother Heart attack Maternal Grandmother Heart attack Maternal Grandfather Family Status - Relation Status Age at Mother Father Brother Maternal Grandmother Maternal Grandfather Level of Service:[address] [place] OFFICE/OUTPATIENT ESTABLISHED MOD MDM 30 MIN Normal [facility] PROTIME-INRon 08-28-2024 INR IN PPP BY COAGULATION ASSAY 1.10 Normal 0.90-1.10 [facility] Comment on above: Result Comment: ACCC [...] CHEST 1995;[id number]. Performed By: #### L [id number] ####[facility])[address] [place] [address] PROTHROMBIN TIME (PT) IN PPP BY COAGULATION ASSAY 14.2 Seconds Normal 12.3-14.8 [facility] Comment on above: Performed By: #### L [id number] ####[facility] [employer])[address] [place] [address] PSA, SCREENINGon 08-28-2024 PROSTATE SPECIFIC AG (NG/ML) IN SER/PLAS 1.5 ng/mL Normal 0.4-4 [facility] Comment on above: Performed By: #### L [id number] #### [facility]) [address] [place] [address] URINE CULTURE, ROUTINEon Bacteria identified Cx Nom (U) <10,000 CFU/ML No Significant Growth Normal [facility] Comment on above: Performed By: #### L [id number] ####[facility] [employer])[address] [place] [address] Laboratory - Chemistry and C hemistry - challengeon 08-27-2024 Bilirubin Ql (U) Negative NEGATIVE [facility] Glucose (U) [Mass/Vol] mg/dL Abnormal NEGATIVE [facility] Ketones Ql (U) Negative NEGATIVE [facility] pH (U) 6.0 [pH] 5.0-9.0 [facility] Specific gravity (U) [Rel density] 1.025 1.005-1.02 5 [facility] Urobilinogen Qn (U) 1.0 {Luisito'U}/dL 0.2-1.0 [facility] Laboratory - Specimen inform ationon 08-27-2024 Appearance (U) SL CLOUDY CLEAR [facility] Color (U) YELLOW YELLOW [facility] Laboratory - Urinalysison Leukocyte esterase Test strip Ql (U) MODERATE Abnormal NEGATIVE [facility] Nitrite Ql (U) Negative NEGATIVE [facility] Protein Ql (U) >=300 mg/dL Abnormal NEG/TRACE [facility] No Panel Informationon 08-27 Urine Occult Blood LARGE Abnormal NEGATIVE [facility] Urine Cultureon 08-27-2024 Bacteria identified Cx Nom (U) <9,000 colonies/ml mixed bacterial skin contaminants 2 Days PERFORMED BY: [place] [address] PATHOLOGIST TORTILLA MAKER CARSON ADAMES M.D. Normal [facility] Comment on above: Performed By: #### C UU #### [address] Office Visiton 08-20-2024 Follow-up visit [id number] Lani Lizama 1950 M Date Provider Department Center 08/20/2024 PINKY JULES Family History Problem Relation Age of Onset Heart attack Mother Other Father Other Brother Heart attack Maternal Grandmother Heart attack Maternal Grandfather Family Status - Relation Status Age at Mother Father Brother Maternal Grandmother Maternal Grandfather Level of Service:69497 [place] OFFICE/OUTPATIENT ESTABLISHED MOD MDM 30 MIN Normal [facility] 30on 08-14-2024 30 The patient is [...] hemodynamic stability Outcome: Adequate for Discharge Normal [facility] 30 Lexiscan stress test Patient information [...] and hemodynamically stable Full final report from marine equipment preservation inspector to follow. Juli Salazar RN [facility] Cardiovascular Stress Lab Normal [facility] HIGH SENSITIVITY TROPONIN Io n 08-14-2024 HS TROPONIN I (NG/L) 160 ng/L Critically high <20 [facility] Comment on above: Performed By: #### L [id number] #### [facility] (BEAKER) [address] [place] [address] NURSNOTEon 08-14-2024 NURSNOTE Patient off the unit at 8:23 am for ECHO and stress test, returned to unit at 12:05 pm. Normal [facility] Orders Onlyon 08-14-2024 Orders Only [id number] Lani Lizama 1950 M Date Provider Department Center 08/14/2024 KEVIN DEMPSEY [facility] CARD [place] HeartVAS Family History Problem Relation Age of Onset Heart attack Mother Other Father Other Brother Heart attack Maternal Grandmother Heart attack Maternal Grandfather Family Status - Relation Status Age at Mother Father Brother Maternal Grandmother Maternal Grandfather Normal [facility] POCT GLUCOSE METER UNSOLICIT ED RESULTSon 08-14-2024 Glucose [Mass/Vol] 155 mg/dL High 70-105 [facility] Comment on above: Order Comment: Waive d Testing in the ED is performed under the ED CLIA certificate #[id number]. Result Comment: dcun dic Performed By: #### L [id number] #### [facility] (BEAKER) [address] [place] [address] Glucose [Mass/Vol] 251 mg/dL High 70-105 [facility] Comment on above: Order Comment: Waive d Testing in the ED is performed under the ED CLIA certificate #[id number]. Result Comment: jdlu gol Performed By: #### L [id number] ####[facility] (BEAKER)[address] [place] [address] Glucose [Mass/Vol] 187 mg/dL High 70-105 [facility] Comment on above: Order Comment: Waive d Testing in the ED is performed under the ED CLIA certificate #[id number]. Result Comment: jdlu gol Performed By: #### L [id number] ####[facility] ([facility])[address] [place] [address] 30on 08-13-2024 30 The patient is Moder [...] and behaviors that affect risk of falls [place] fall precautions as indicated by assessment Educate [...] dysrhythmias or at baseline Outcome: Progressing Normal [facility] Basophils Auto (Bld) [#/Vol] on 08-13-2024 Basophils (Bld) [#/Vol] Automated basophil count 0.0-0.1 [facility] Basophils/100 WBC Auto (Bld) on 08-13-2024 Basophils/100 WBC (Bld) Automated basophil % 0.2-2.0 [facility] CBC WITH AUTO DIFFERENTIALon 08-13-2024 Basophils (Bld) [#/Vol] 0.05 10*3/uL Normal 0.00-0.20 [facility] Comment on above: Performed By: #### L [id number] ####[facility] (BEAKER)[address] [place] [address] Basophils/100 WBC (Bld) 0.7 % Normal 0.0-1.0 [facility] Comment on above: Performed By: #### L [id number] ####[facility] (BEAKER)[address] [place] [address] Eosinophils (Bld) [#/Vol] 0.14 10*3/uL Normal 0.00-0.50 [facility] Comment on above: Performed By: #### L [id number] ####[facility] (BEAKER)[address] [place] [address] Eosinophils/100 WBC (Bld) 1.8 % Normal 0.0-6.0 [facility] Comment on above: Performed By: #### L [id number] ####[facility] (BEAKER)[address] [place] [address] Erythrocyte distribution width (RBC) [Ratio] 14.6 % Normal 11.5-15.0 [facility] Comment on above: Performed By: #### L [id number] ####[facility] (BEAKER)[address] [place] [address] ERYTHROCYTE MEAN CORPUSCULAR HEMOGLOBIN CONCENTRATION (G/DL) BY AUTOMATED 32.9 g/dL Normal 32.0-35.0 [facility] Comment on above: Performed By: #### L [id number] ####[facility] (BEAKER)[address] [place] [address] Hematocrit (Bld) [Volume fraction] 39.8 % Normal 39.0-50.0 [facility] Comment on above: Performed By: #### L [id number] ####[facility] (BEAKER)[address] [place] [address] Hemoglobin (Bld) [Mass/Vol] 13.1 g/dL Normal 13.0-17.0 [facility] Comment on above: Performed By: #### L [id number] ####[facility] (BEAKER)[address] [place] [address] Immature granulocytes (Bld) [#/Vol] 0.03 10*3/uL Normal 0.00-0.20 [facility] Comment on above: Performed By: #### L [id number] ####[facility] (BEAKER)[address] [place] [address] Immature granulocytes/100 WBC (Bld) 0.4 % Normal 0.0-1.0 [facility] Comment on above: Performed By: #### L [id number] ####[facility] (BEAKER)[address] [place] [address] Lymphocytes (Bld) [#/Vol] 1.51 10*3/uL Normal 1.20-4.00 [facility] Comment on above: Performed By: #### L [id number] ####[facility] (BEAKER)[address] [place] [address] Lymphocytes/100 WBC (Bld) 19.8 % Low 20.0-45.0 [facility] Comment on above: Performed By: #### L [id number] ####[facility] (BEAKER)[address] [place] [address] MCH (RBC) [Entitic mass] 29.3 pg Normal 27.0-33.0 [facility] Comment on above: Performed By: #### L [id number] ####[facility] ([facility] [place] [address] MCV (RBC) [Entitic vol] 89.0 fL Normal 82.0-98.0 [facility] Comment on above: Performed By: #### L [id number] ####[facility] ([facility])[address] [place] [address] Monocytes (Bld) [#/Vol] 0.57 10*3/uL Normal 0.10-1.00 [facility] Comment on above: Performed By: #### L [id number] ####[facility] ([facility])[address] [place] [address] Monocytes/100 WBC (Bld) 7.5 % Normal 5.0-12.0 [facility] Comment on above: Performed By: #### L [id number] ####[facility] ([facility])[address] [place] [address] Neutrophils (Bld) [#/Vol] 5.32 10*3/uL Normal 1.60-7.60 [facility] Comment on above: Performed By: #### L [id number] ####[facility] ([facility])[address] [place] [address] Neutrophils/100 WBC (Bld) 69.8 % Normal 40.0-72.0 [facility] Comment on above: Performed By: #### L [id number] ####[facility] ([facility] [place] [address] NRBC (PER 100 WBCS) BY AUTOMATED COUNT 0.0 % Normal 0 [facility] Comment on above: Performed By: #### L [id number] ####[facility] (BEAKER)[address] [place] [address] PLATELETS (10*3/UL) IN BLOOD AUTOMATED COUNT 201 10*3/uL Normal 150-400 [facility] Comment on above: Performed By: #### L [id number] ####[facility] ([facility])[address] [place] [address] RBC (Bld) [#/Vol] 4.47 10*6/uL Normal 4.20-5.70 [facility] Comment on above: Performed By: #### L [id number] ####[facility] ([facility])[address] [place] [address] WBC (Bld) [#/Vol] 7.62 10*3/uL Normal 4.00-10.60 [facility] Comment on above: Performed By: #### L [id number] ####[facility] ([facility])[address] [place] [address] COMPREHENSIVE METABOLIC PANE Mike 08-13-2024 Albumin [Mass/Vol] 4.3 g/dL Normal 3.5-5.7 [facility] Comment on above: Performed By: #### L [id number] ####[facility] ([facility])[address] [place] [address] ALP [Catalytic activity/Vol] 90 U/L Normal 34-104 [facility] Comment on above: Performed By: #### L [id number] ####[facility] ([facility])[address] [place] [address] ALT [Catalytic activity/Vol] 15 U/L Normal 7-52 [facility] Comment on above: Performed By: #### L [id number] ####[facility] ([facility] [place] [address] Anion gap [Moles/Vol] 13 mmol/L Normal 7-20 [facility] Comment on above: Performed By: #### L [id number] ####[facility] (BEAKER)[address] [place] [address] AST [Catalytic activity/Vol] 27 U/L Normal 13-39 [facility] Comment on above: Performed By: #### L [id number] ####[facility] (BEAKER)[address] [place] [address] Bilirubin [Mass/Vol] 0.7 mg/dL Normal 0.3-1.0 [place] Comment on above: Performed By: #### L [id number] ####[facility] (BEAKER)[address] [place] [address] Calcium [Mass/Vol] 9.1 mg/dL Normal 8.6-10.3 [facility] Comment on above: Performed By: #### L [id number] ####[facility] (BEAKER)[address] [place] [address] Chloride [Moles/Vol] 108 mmol/L High 98-107 [place] Comment on above: Performed By: #### L [id number] ####[facility] (BEAKER)[address] [place] [address] CO2 [Moles/Vol] 21 mmol/L Normal 21-31 [facility] Comment on above: Performed By: #### L [id number] ####[facility] (BEAKER)[address] [place] [address] Creatinine [Mass/Vol] 1.63 mg/dL High 0.70-1.30 [facility] Comment on above: Performed By: #### L [id number] ####[facility] (BEAKER)[address] [place] [address] GLOMERULAR FILTRATION RATE ML/MIN/1.73 SQ M.PREDICTED 44.5 mL/min/1.73m*2 Low >60.0 [facility] Comment on above: Result Comment: [facility]???s estimated glomerular filtration rate (eGFR) will [...] of individuals. Performed By: #### L [id number] ####[facility] ([facility])[address] [place] [address] Glucose [Mass/Vol] 165 mg/dL High 70-100 [facility] Comment on above: Performed By: #### L [id number] ####[facility] ([facility])[address] [place] [address] Potassium [Moles/Vol] 4.7 mmol/L Normal 3.5-5.1 [facility] Comment on above: Performed By: #### L [id number] ####[facility] ([facility])[address] [place] [address] Protein [Mass/Vol] 7.2 g/dL Normal 6.0-8.3 [facility] Comment on above: Performed By: #### L [id number] ####[facility] ([facility])[address] [place] [address] Sodium [Moles/Vol] 137 mmol/L Normal 136-145 [facility] Comment on above: Performed By: #### L [id number] ####[facility] ([facility])[address] [place] [address] Urea nitrogen [Mass/Vol] 26 mg/dL High 7-25 [facility] Comment on above: Performed By: #### L [id number] ####[facility] ([facility])[address] [place] [address] UREA NITROGEN/CREATININE (MASS RATIO) IN SER/PLAS 16.0 Normal [facility] Comment on above: Performed By: #### L [id number] ####[facility] ([facility])[address] [place] [address] CONSULTon 08-13-2024 CONSULT ----- ----- Attestation signed by Tatianna Urrutia MD at 08/13/2024 7:18 PM I personally spoke with and examined Mr. Lizama with Dr. Pagan today. I then spoke with his marine equipment preservation inspector Dr. Bishop about his longitudinal care. [...] mildly elevated troponin. Patient was transferred to [facility] for further evaluation and treatment. [...] (1000 unit (more content not included)... Normal [facility] Eosinophils/100 WBC Auto (Bl d)on 08-13-2024 Eosinophils/100 WBC (Bld) Automated eosinophil % 0.9-7.0 [facility] Erythrocyte distribution wid th Auto (RBC) [Ratio]on 08-13-2024 Erythrocyte distribution width (RBC) [Ratio] Erythrocyte distribution width [Ratio] by Automated count 11.0-15.0 [facility] Estimated glomerular filtrat ion rate (GFR) non- Americanon 08-13-2024 GFR/1.73 sq M.predicted among non-blacks MDRD (S/P/Bld) [Vol rate/Area] Estimated glomerular filtration rate (GFR) non- Low >=60 mL/min/1.7 3m 2 [facility] Fibrin D-dimer [Presence] in Platelet poor plasma by Latex agglutinationon 08-13-2024 Fibrin D-dimer LA Ql (PPP) Fibrin D-dimer [Presence] in Platelet poor plasma by Latex agglutination Critically high <=0.59 [facility] Comment on above: RESULTS CALLED [...] I (NG/L) 294 ng/L Critically high <20 [facility] Comment on above: Performed By: #### L [id number] #### [facility] (BEAKER) [address] [place] [address] Hematocrit Auto (Bld) [Volum e fraction]on 08-13-2024 Hematocrit (Bld) [Volume fraction] Hematocrit [Volume Fraction] of Blood by Automated count Low 42.0-54.0 [facility] Hemoglobin [Mass/volume] in Bloodon 08-13-2024 Hemoglobin (Bld) [Mass/Vol] Hemoglobin [Mass/volume] in Blood Low 14.0-18.0 [facility] Laboratory - Chemistry and C hemistry - challengeon 08-13-2024 Calcium [Mass/Vol] 9.3 mg/dL 8.5-10.1 [facility] Chloride [Moles/Vol] 103 mmol/L 98-107 [facility] CO2 [Moles/Vol] 24.4 mmol/L 21.0-32.0 [facility] Creatinine [Mass/Vol] 2.02 mg/dL High 0.70-1.30 [facility] GFR/1.73 sq M.predicted MDRD (S/P/Bld) [Vol rate/Area] 40 mL/min/{1.73_m2} Low >=60 mL/min/1.7 3m 2 [facility] Glucose [Mass/Vol] 310 mg/dL High 74-106 [facility] Potassium [Moles/Vol] 3.9 mmol/L 3.5-5.1 [facility] Sodium [Moles/Vol] 137 mmol/L 136-145 [facility] Urea nitrogen [Mass/Vol] 29.0 mg/dL High 7.0-18.0 [facility] Urea nitrogen/Creatinine [Mass ratio] 14.4 mg/mg [facility] Laboratory - Hematology and Cell countson 08-13-2024 Immature granulocytes/100 WBC (Bld) 0.5 % 0.0-0.5 [facility] Leukocytes [#/volume] correc soraya for nucleated erythrocytes in Blood by Automated counon 08-13-2024 WBC corrected for nucl RBC Auto (Bld) [#/Vol] Leukocytes [#/volume] corrected for nucleated erythrocytes in Blood by Automated coun 4.0-11.0 [facility] Lymphocytes Auto (Bld) [#/Vo l]on 08-13-2024 Lymphocytes (Bld) [#/Vol] Lymphocytes [#/volume] in Blood by Automated count 1.2-3.8 [facility] Lymphocytes/100 WBC Auto (Bl d)on 08-13-2024 Lymphocytes/100 WBC (Bld) Lymphocytes/100 leukocytes in Blood by Automated count 20.5-60.0 [facility] MAGNESIUMon 08-13-2024 Magnesium [Mass/Vol] 1.9 mg/dL Normal 1.9-2.7 [place] Comment on above: Performed By: #### L [id number] #### [facility] (BEAKER) [address] [place] [address] MCH Auto (RBC) [Entitic mass ]on 08-13-2024 MCH (RBC) [Entitic mass] MCH [Entitic mass] by Automated count 25.9-34.0 [facility] MCHC Auto (RBC) [Mass/Vol]on 08-13-2024 MCHC (RBC) [Mass/Vol] MCHC [Mass/volume] by Automated count 29.9-35.2 [facility] MCV Auto (RBC) [Entitic vol] on 08-13-2024 MCV (RBC) [Entitic vol] MCV [Entitic volume] by Automated count 80.0-94.0 [facility] Monocytes Auto (Bld) [#/Vol] on 08-13-2024 Monocytes (Bld) [#/Vol] Automated blood monocyte count High 0.3-0.8 [facility] Monocytes/100 WBC Auto (Bld) on 08-13-2024 Monocytes/100 WBC (Bld) Automated monocyte % 1.7-12.0 [facility] Neutrophils Auto (Bld) [#/Vo l]on 08-13-2024 Neutrophils (Bld) [#/Vol] Neutrophils [#/volume] in Blood by Automated count 1.4-6.5 [facility] Neutrophils/100 WBC Auto (Bl d)on 08-13-2024 Neutrophils/100 WBC (Bld) Automated neutrophil % 43.0-75.0 [facility] No Panel Informationon 08-13 Troponin I High Sensitivity 228.4 pg/mL Critically high 4.0-76.1 [facility] Comment on above: RESULTS CALLED [...] Eosinophils # (Auto) 0.2 10 3/uL 0.0-0.7 [facility] Immature Granulocyte # (Auto) 0.04 10 3/uL High 0.00-0.03 [facility] PHOSPHORUSon 08-13-2024 Magnesium [Mass/Vol] 3.6 mg/dL Normal 2.5-5.0 [place] Comment on above: Performed By: #### L [id number] ####[facility] (BEAKER)[address] [place] [address] POCT GLUCOSE METER UNSOLICIT ED RESULTSon 08-13-2024 Glucose [Mass/Vol] 104 mg/dL Normal 70-105 [facility] Comment on above: Order Comment: Waive d Testing in the ED is performed under the ED CLIA certificate #[id number]. Result Comment: [email or web address] Performed By: #### L [id number] ####[facility] (BEAKER)[address] [place] [address] Glucose [Mass/Vol] 207 mg/dL High 70-105 [facility] Comment on above: Order Comment: Waive d Testing in the ED is performed under the ED CLIA certificate #[id number]. Result Comment: [email or web address] gol Performed By: #### L [id number] ####[facility] (BEAKER)[address] [place] [address] Glucose [Mass/Vol] 160 mg/dL High 70-105 [facility] Comment on above: Order Comment: Waive d Testing in the ED is performed under the ED CLIA certificate #[id number]. Result Comment: [id number] gol Performed By: #### L [id number] ####[facility] (BEAKER)[address] [place] [address] Platelet mean volume Auto (B ld) [Entitic vol]on 08-13-2024 Platelet mean volume (Bld) [Entitic vol] Platelet mean volume [Entitic volume] in Blood by Automated count 9.5-13.5 [facility] Platelets Auto (Bld) [#/Vol] on 08-13-2024 Platelets (Bld) [#/Vol] Platelets [#/volume] in Blood by Automated count 150-450 [facility] RBC Auto (Bld) [#/Vol]on RBC (Bld) [#/Vol] Erythrocytes [#/volu me] in Blood by Automated count Low 4.70-6.10 [facility] Serum or plasma anion gap de terminationon 08-13-2024 Anion gap [Moles/Vol] Serum or plasma an ion gap determination [facility] Main OR Preoperative Recordo n 08-11-2024 Main OR Preoperative Record Main OR Preoperative Record Holding Area Document Type FTURO Summary Primary Physician: Jason LARKIN MD Finalized Date/Time: 08/11/24 16:19:02 Pt. Name: LANI LIZAMA/Sex: 1950 Male Med Rec #: [id number] Physician: Jason LARKIN MD Financial #: [id number] Pt. Type: O Room/Bed: / Admit/Disch: 08/04/24 [...] Interpretation - Adequate cellularity for evaluation. CPT 26971 MicroScopic Description - Adequacy - Gross Description Site ID:A color Red fixative Alcohol Specimen designated Urine received in alcohol preservative and labeled with the patient???s name, consists of 60ml cloudy red fluid. Electronically signed by : on: 08/07/2024 13:02:18 Performed By: #### 1 [id number] #### [facility] [address] [place] [address] Main OR Intraoperative Recor don 08-04-2024 Main OR Intraoperative Record Main OR Intraoperative Record IntraOp Document Type FTURO Summary Primary Physician: Jason LARKIN MD Finalized Date/Time: 08/04/24 10:03:52 Pt. Name: LANI LIZAMA Nakul العراقي/Sex: 1950 Male Med Rec #: [id number] Physician: Jason LARKIN MD Financial #: [id number] Pt. Type: O Room/Bed: / Admit/Disch: 08/04/24 [...] Hortencia Holt Role Performed Surgeon - Primary Neurosurgery Research Director - Primary Scrub - Primary Time In [...] 08/04/24 10:03:50 Case Comments Finalized By: SUNITA Argawal RN, Ruthann Document Signatures Signed By: SUNITA [...] fraction] Hemoglobin A1c/Hemoglobin.total in Blood by HPLC [facility] No Panel Informationon 08-03 Bedside Glucose 147 [facility] Urine Cytology ([facility])on 0 08-03-2024 Method of Extraction Voided Normal [facility] Comment on above: Performed By: #### 1 [id number] #### [facility] [address] [place] [address] Number of Jars 1 Invalid Interpretation Code [facility] Comment on above: Performed By: #### 1 [id number] #### [facility] [address] [place] [address] Specimen Urine Normal [facility] Comment on above: Performed By: #### 1 [id number] #### [facility] [address] [place] [address] Type of Service Technical Only Normal [facility] Comment on above: Performed By: #### 1 [id number] #### [facility] [address] [place] [address] Urology Office/Clinic Noteon 08-03-2024 Urology Office/Clinic Note [...] factor for urothelial ca. 5. 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 Elevated risk for periop complications. Follow-up With When Contact Information Jason LARKIN MD, URL [facility] [address], [place] [address] [phone] Additional Instructions: sched cysto Patient Education Cystoscopy I, Tiffany Patten, personally scribed for Dr. Larkin on 08/03/2024 14:23:23. . Documentation recorded by the scribe, Tiffany Patten, accurately reflects the services(s) I performed and decisions made by me. Authenticated by Dr. Larkin on 08/03/2024 14:25:00. Problem List/Past Medical History Ongoing Abdominal pain, RLQ Anticoagulated Arthritis ASHD (arteriosclerotic heart disease) Atheroscler of [place] artery of both legs with intermit claudication [...] Basophils (Bld) [#/Vol] Automated basophil count 0.0-0.1 [facility] Basophils/100 WBC Auto (Bld) on 07-15-2024 Basophils/100 WBC (Bld) Automated basophil % 0.2-2.0 [facility] Eosinophils/100 WBC Auto (Bl d)on 07-15-2024 Eosinophils/100 WBC (Bld) Automated eosinophil % 0.9-7.0 [facility] Erythrocyte distribution wid th Auto (RBC) [Ratio]on 07-15-2024 Erythrocyte distribution width (RBC) [Ratio] Erythrocyte distribution width [Ratio] by Automated count 11.0-15.0 [facility] Estimated glomerular filtrat ion rate (GFR) non- Americanon 07-15-2024 GFR/1.73 sq M.predicted among non-blacks MDRD (S/P/Bld) [Vol rate/Area] Estimated glomerular filtration rate (GFR) non- Low >=60 mL/min/1.7 3m 2 [facility] Globulin Calc (S) [Mass/Vol] on 07-15-2024 Globulin (S) [Mass/Vol] Serum globulin measurement by calculation (mass/volume) [facility] Hematocrit Auto (Bld) [Volum e fraction]on 07-15-2024 Hematocrit (Bld) [Volume fraction] Hematocrit [Volume Fraction] of Blood by Automated count 42.0-54.0 [facility] Hemoglobin [Mass/volume] in Bloodon 07-15-2024 Hemoglobin (Bld) [Mass/Vol] Hemoglobin [Mass/volume] in Blood 14.0-18.0 [facility] Laboratory - Chemistry and C hemistry - challengeon 07-15-2024 Albumin [Mass/Vol] 3.8 g/dL 3.4-5.0 [facility] ALP [Catalytic activity/Vol] 128 U/L High 46-116 [facility] ALT [Catalytic activity/Vol] 30 U/L 16-63 [facility] AST [Catalytic activity/Vol] 22 U/L 15-37 [facility] Bilirubin [Mass/Vol] 0.6 mg/dL 0.2-1.0 [facility] Calcium [Mass/Vol] 8.9 mg/dL 8.5-10.1 [facility] Chloride [Moles/Vol] 104 mmol/L 98-107 [facility] CO2 [Moles/Vol] 28.1 mmol/L 21.0-32.0 [facility] Creatinine [Mass/Vol] 1.74 mg/dL High 0.70-1.30 [facility] GFR/1.73 sq M.predicted MDRD (S/P/Bld) [Vol rate/Area] 47 mL/min/{1.73_m2} Low >=60 mL/min/1.7 3m 2 [facility] Glucose [Mass/Vol] 142 mg/dL High 74-106 [facility] Potassium [Moles/Vol] 4.1 mmol/L 3.5-5.1 [facility] Protein [Mass/Vol] 7.5 g/dL 6.4-8.2 [facility] Sodium [Moles/Vol] 140 mmol/L 136-145 [facility] Urea nitrogen [Mass/Vol] 19.0 mg/dL High 7.0-18.0 [facility] Urea nitrogen/Creatinine [Mass ratio] 10.9 mg/mg [facility] Laboratory - Hematology and Cell countson 07-15-2024 Immature granulocytes/100 WBC (Bld) 0.6 % High 0.0-0.5 [facility] Leukocytes [#/volume] correc soraya for nucleated erythrocytes in Blood by Automated counon 07-15-2024 WBC corrected for nucl RBC Auto (Bld) [#/Vol] Leukocytes [#/volume] corrected for nucleated erythrocytes in Blood by Automated coun 4.0-11.0 [facility] Lymphocytes Auto (Bld) [#/Vo l]on 07-15-2024 Lymphocytes (Bld) [#/Vol] Lymphocytes [#/volume] in Blood by Automated count 1.2-3.8 [facility] Lymphocytes/100 WBC Auto (Bl d)on 07-15-2024 Lymphocytes/100 WBC (Bld) Lymphocytes/100 leukocytes in Blood by Automated count 20.5-60.0 [facility] MCH Auto (RBC) [Entitic mass ]on 07-15-2024 MCH (RBC) [Entitic mass] MCH [Entitic mass] by Automated count 25.9-34.0 [facility] MCHC Auto (RBC) [Mass/Vol]on 07-15-2024 MCHC (RBC) [Mass/Vol] MCHC [Mass/volume] by Automated count 29.9-35.2 [facility] MCV Auto (RBC) [Entitic vol] on 07-15-2024 MCV (RBC) [Entitic vol] MCV [Entitic volume] by Automated count 80.0-94.0 [facility] Monocytes Auto (Bld) [#/Vol] on 07-15-2024 Monocytes (Bld) [#/Vol] Automated blood monocyte count 0.3-0.8 [facility] Monocytes/100 WBC Auto (Bld) on 07-15-2024 Monocytes/100 WBC (Bld) Automated monocyte % 1.7-12.0 [facility] Neutrophils Auto (Bld) [#/Vo l]on 07-15-2024 Neutrophils (Bld) [#/Vol] Neutrophils [#/volume] in Blood by Automated count 1.4-6.5 [facility] Neutrophils/100 WBC Auto (Bl d)on 07-15-2024 Neutrophils/100 WBC (Bld) Automated neutrophil % 43.0-75.0 [facility] No Panel Informationon 07-15 Eosinophils # (Auto) 0.3 10 3/uL 0.0-0.7 [facility] Immature Granulocyte # (Auto) 0.05 10 3/uL High 0.00-0.03 [facility] Platelet mean volume Auto (B ld) [Entitic vol]on 07-15-2024 Platelet mean volume (Bld) [Entitic vol] Platelet mean volume [Entitic volume] in Blood by Automated count 9.5-13.5 [facility] Platelets Auto (Bld) [#/Vol] on 07-15-2024 Platelets (Bld) [#/Vol] Platelets [#/volume] in Blood by Automated count 150-450 [facility] RBC Auto (Bld) [#/Vol]on RBC (Bld) [#/Vol] Erythrocytes [#/volu me] in Blood by Automated count 4.70-6.10 [facility] Serum or plasma albumin/glob ulin mass ratioon 07-15-2024 Albumin/Globulin [Mass ratio] Serum or plasma albumin/globulin mass ratio [facility] Serum or plasma anion gap de terminationon 07-15-2024 Anion gap [Moles/Vol] Serum or plasma an ion gap determination [facility] Erythrocyte distribution wid th Auto (RBC) [Ratio]on 07-07-2024 Erythrocyte distribution width (RBC) [Ratio] Erythrocyte distribution width [Ratio] by Automated count High 11.0-15.0 [facility] Estimated glomerular filtrat ion rate (GFR) non- Americanon 07-07-2024 GFR/1.73 sq M.predicted among non-blacks MDRD (S/P/Bld) [Vol rate/Area] Estimated glomerular filtration rate (GFR) non- Low >=60 mL/min/1.7 3m 2 [facility] Hematocrit Auto (Bld) [Volum e fraction]on 07-07-2024 Hematocrit (Bld) [Volume fraction] Hematocrit [Volume Fraction] of Blood by Automated count 42.0-54.0 [facility] Hemoglobin [Mass/volume] in Bloodon 07-07-2024 Hemoglobin (Bld) [Mass/Vol] Hemoglobin [Mass/volume] in Blood 14.0-18.0 [facility] Laboratory - Chemistry and C hemistry - challengeon 07-07-2024 Albumin [Mass/Vol] 3.9 g/dL 3.4-5.0 [facility] Calcium [Mass/Vol] 9.3 mg/dL 8.5-10.1 [facility] Chloride [Moles/Vol] 105 mmol/L 98-107 [facility] CO2 [Moles/Vol] 28.7 mmol/L 21.0-32.0 [facility] Creatinine [Mass/Vol] 1.87 mg/dL High 0.70-1.30 [facility] GFR/1.73 sq M.predicted MDRD (S/P/Bld) [Vol rate/Area] 43 mL/min/{1.73_m2} Low >=60 mL/min/1.7 3m 2 [facility] Glucose [Mass/Vol] 196 mg/dL High 74-106 [facility] Magnesium [Mass/Vol] 1.9 mg/dL 1.8-2.4 [facility] Potassium [Moles/Vol] 5.5 mmol/L High 3.5-5.1 [facility] Sodium [Moles/Vol] 139 mmol/L 136-145 [facility] Urate [Mass/Vol] 3.5 mg/dL 3.5-7.2 [facility] Urea nitrogen [Mass/Vol] 19.0 mg/dL High 7.0-18.0 [facility] Urea nitrogen/Creatinine [Mass ratio] 10.2 mg/mg [facility] Laboratory - Urinalysison Protein (U) [Mass/Vol] 124.0 mg/dL High <=11.9 [facility] Leukocytes [#/volume] correc soraya for nucleated erythrocytes in Blood by Automated counon 07-07-2024 WBC corrected for nucl RBC Auto (Bld) [#/Vol] Leukocytes [#/volume] corrected for nucleated erythrocytes in Blood by Automated coun 4.0-11.0 [facility] MCH Auto (RBC) [Entitic mass ]on 07-07-2024 MCH (RBC) [Entitic mass] MCH [Entitic mass] by Automated count 25.9-34.0 [facility] MCHC Auto (RBC) [Mass/Vol]on 07-07-2024 MCHC (RBC) [Mass/Vol] MCHC [Mass/volume] by Automated count 29.9-35.2 [facility] MCV Auto (RBC) [Entitic vol] on 07-07-2024 MCV (RBC) [Entitic vol] MCV [Entitic volume] by Automated count 80.0-94.0 [facility] No Panel Informationon 07-07 25-Hydroxy Vitamin D Total 41.5 ng/mL [facility] Comment on above: <20 ng/mL Vit D defi cient20-<30 ng/mL Vit D fnopapnxawrh68-117 ng/mL Vit D sufficient>100 ng/mL Potential Toxicity Parathyroid Hormone (Intact) 62 pg/mL 15-65 [facility] Comment on above: Performed at: [address] [id number] Director: Kwaku Park PhD, Phone: [phone] Phosphorus Level 3.7 mg/dL 2.6-4.7 [facility] Urine Random Creatinine 69.77 mg/dL 20.00-300. 00 [facility] Platelet mean volume Auto (B ld) [Entitic vol]on 07-07-2024 Platelet mean volume (Bld) [Entitic vol] Platelet mean volume [Entitic volume] in Blood by Automated count 9.5-13.5 [facility] Platelets Auto (Bld) [#/Vol] on 07-07-2024 Platelets (Bld) [#/Vol] Platelets [#/volume] in Blood by Automated count 150-450 [facility] RBC Auto (Bld) [#/Vol]on RBC (Bld) [#/Vol] Erythrocytes [#/volu me] in Blood by Automated count 4.70-6.10 [facility] Serum or plasma anion gap de terminationon 07-07-2024 Anion gap [Moles/Vol] Serum or plasma an ion gap determination [facility] Urine Cultureon 07-07-2024 Bacteria identified Cx Nom (U) <9,000 colonies/ml mixed bacterial skin contaminants 2 Days PERFORMED BY: [place] [address] PATHOLOGIST TORTILLA MAKER DORCAS FARRELL M.D. Normal [facility] Comment on above: Performed By: #### C UU #### [address] Urine protein/creatinine rat ioon 07-07-2024 Protein/Creatinine (U) [Ratio] Urine protein/creatinine ratio [facility] - Microbiology an d Antimicrobial susceptibilityon 06-10-2024 SARS-CoV-2 (COVID-19) RNA RAMO+probe Ql (Unsp spec) Positive Abnormal NEGATIVE [facility] Comment on above: This test [...] 06-10 Bedside Influenza Type A Antigen Negative [facility] Comment on above: Negative for Flu A p rotein antigen. Infection due to Flu Acannot be ruled out. Flu A antigen in the sample may bebelow the detection limit of the test. Bedside Influenza Type B Antigen Negative [facility] Comment on above: Negative for Flu B p rotein antigen. Infection due to Flu Bcannot be ruled out. Flu B antigen in the sample may bebelow the detection limit of the test. Cholesterol in LDL Calc [Mas s/Vol]on 05-05-2024 Cholesterol in LDL [Mass/Vol] Cholesterol in LDL [Mass/volume] in Serum or Plasma by calculation [facility] Comment on above: <100 mg/dl [id number] 0-129 mg/dl NEAR OR ABOVE [id number] mg/dl BORDERLINE [id number] mg/dl HIGH>190 mg/dl VERY HIGH Cholesterol in VLDL Calc [Ma ss/Vol]on 05-05-2024 Cholesterol in VLDL [Mass/Vol] Cholesterol in VLDL [Mass/volume] in Serum or Plasma by calculation [facility] Estimated glomerular filtrat ion rate (GFR) non- Americanon 05-05-2024 GFR/1.73 sq M.predicted among non-blacks MDRD (S/P/Bld) [Vol rate/Area] Estimated glomerular filtration rate (GFR) non- Low >=60 mL/min/1.7 3m 2 [facility] Globulin Calc (S) [Mass/Vol] on 05-05-2024 Globulin (S) [Mass/Vol] Serum globulin measurement by calculation (mass/volume) [facility] Laboratory - Chemistry and C hemistry - challengeon 05-05-2024 Albumin [Mass/Vol] 3.7 g/dL 3.4-5.0 [facility] ALP [Catalytic activity/Vol] 162 U/L High 46-116 [facility] ALT [Catalytic activity/Vol] 17 U/L 16-63 [facility] AST [Catalytic activity/Vol] 20 U/L 15-37 [facility] Bilirubin [Mass/Vol] 0.5 mg/dL 0.2-1.0 [facility] Calcium [Mass/Vol] 9.2 mg/dL 8.5-10.1 [facility] Chloride [Moles/Vol] 104 mmol/L 98-107 [facility] Cholesterol [Mass/Vol] 117 mg/dL <=200 [facility] Cholesterol in HDL [Mass/Vol] 39 mg/dL Low 40-60 [facility] Comment on above: > or =60 mg/dl - LOW CARDIOVASCULAR RISK<40 mg/dl - HIGH CARDIOVASCULAR RISK CO2 [Moles/Vol] 28.5 mmol/L 21.0-32.0 [facility] Creatinine [Mass/Vol] 2.15 mg/dL High 0.70-1.30 [facility] GFR/1.73 sq M.predicted MDRD (S/P/Bld) [Vol rate/Area] 37 mL/min/{1.73_m2} Low >=60 mL/min/1.7 3m 2 [facility] Glucose [Mass/Vol] 220 mg/dL High 74-106 [facility] Potassium [Moles/Vol] 4.6 mmol/L 3.5-5.1 [facility] Protein [Mass/Vol] 8.0 g/dL 6.4-8.2 [facility] Sodium [Moles/Vol] 141 mmol/L 136-145 [facility] Triglyceride [Mass/Vol] 171 mg/dL High <=150 [facility] Urea nitrogen [Mass/Vol] 27.0 mg/dL High 7.0-18.0 [facility] Urea nitrogen/Creatinine [Mass ratio] 12.6 mg/mg [facility] Microalbumin [Mass/volume] i n Urineon 05-05-2024 Albumin DL <= 20 mg/L (U) [Mass/Vol] Microalbumin [Mass/volume] in Urine <=30.0 [facility] No Panel Informationon 05-05 Urine Random Creatinine 61.15 mg/dL 20.00-300. 00 [facility] Serum or plasma albumin/glob ulin mass ratioon 05-05-2024 Albumin/Globulin [Mass ratio] Serum or plasma albumin/globulin mass ratio [facility] Serum or plasma anion gap de terminationon 05-05-2024 Anion gap [Moles/Vol] Serum or plasma an ion gap determination [facility] Serum or plasma total choles terol/high density lipoprotein (HDL) cholesterol mass yulia 05-05-2024 Cholesterol.total/Chol esterol in HDL [Mass ratio] Serum or plasma total cholesterol/high density lipoprotein (HDL) cholesterol mass rat [facility] Comment on above: 3.3 - 4.4 LOW RISK4. 4 - 7.1 AVERAGE RISK7.1 - 11.0 MODERATE RISK>11.0 HIGH RISK Urine microalbumin/creatinin e mass ratioon 05-05-2024 Albumin/Creatinine DL <= 20 mg/L (U) [Mass ratio] Urine microalbumin/creatinine mass ratio High 0.0-29.9 [facility] Comment on above: NO MICROALBUMINURIA 0-29 MG/GCLINICAL MICROALBUMINURIA 30-300 MG/GMACROALBUMINURIA >300 MG/G HbA1c HPLC (Bld) [Mass fract ion]on 04-30-2024 HbA1c (Bld) [Mass fraction] Hemoglobin A1c/Hemoglobin.total in Blood by HPLC [facility] No Panel Informationon 04-30 Bedside Glucose 158 [facility] Office Visiton 03-10-2024 Follow-up visit [id number] Lani Lizama 1950 M Date Provider Department Center 03/10/2024 [facility]EL[facility] [place] [facility] Family History Problem Relation Age of Onset Heart attack Mother Other Father Other Brother Heart attack Maternal Grandmother Heart attack Maternal Grandfather Family Status - Relation Status Age at Mother Father Brother Maternal Grandmother Maternal Grandfather Level of Service:[address] [place] OFFICE/OUTPATIENT NEW LOW MDM 30 MINUTES Normal [facility] 30on 02-14-2024 30 The patient is Moder ately Stable - Low risk of patient condition declining or worsening The patient's goals for the shift include get better The clinical goals for the shift include VSS Normal [facility] 30 The patient is Moder ately [...] and behaviors that affect risk of falls [place] fall precautions as indicated by assessment Educate [...] and prevent overall improvement and discharge Normal [facility] BASIC METABOLIC PANELon 11- Anion gap [Moles/Vol] 9 mmol/L Normal 7-20 [facility] Comment on above: Performed By: #### L [id number] ####[facility] [place] [address] Calcium [Mass/Vol] 8.4 mg/dL Low 8.6-10.3 [facility] Comment on above: Performed By: #### L [id number] ####[facility] ([facility] [place] [address] Chloride [Moles/Vol] 109 mmol/L High 98-107 [place] Comment on above: Performed By: #### L [id number] ####[facility] ([facility] [place] [address] CO2 [Moles/Vol] 25 mmol/L Normal 21-31 [facility] Comment on above: Performed By: #### L [id number] ####[facility] ([facility] [place] [address] Creatinine [Mass/Vol] 1.65 mg/dL High 0.70-1.30 [facility] Comment on above: Performed By: #### L [id number] ####[facility] ([facility])[address] [place] [address] GLOMERULAR FILTRATION RATE ML/MIN/1.73 SQ M.PREDICTED 43.8 mL/min/1.73m*2 Low >60.0 [facility] Comment on above: Result Comment: [facility]???s estimated glomerular filtration rate (eGFR) will [...] of individuals. Performed By: #### L [id number] ####[facility] (BEAKER)[address] [place] [address] Glucose [Mass/Vol] 118 mg/dL High 70-100 [facility] Comment on above: Performed By: #### L [id number] ####[facility] (BEAKER)[address] [place] [address] Potassium [Moles/Vol] 4.3 mmol/L Normal 3.5-5.1 [facility] Comment on above: Performed By: #### L [id number] ####[facility] (BEAKER)[address] [place] [address] Sodium [Moles/Vol] 139 mmol/L Normal 136-145 [facility] Comment on above: Performed By: #### L [id number] ####[facility] ([facility] [place] [address] Urea nitrogen [Mass/Vol] 19 mg/dL Normal 7-25 [facility] Comment on above: Performed By: #### L [id number] ####[facility] ([facility] [place] [address] UREA NITROGEN/CREATININE (MASS RATIO) IN SER/PLAS 11.5 Normal [facility] Comment on above: Performed By: #### L [id number] ####[facility] (BEAKER)[address] [place] [address] CBCon 02-14-2024 Erythrocyte distribution width (RBC) [Ratio] 13.8 % Normal 11.5-15.0 [facility] Comment on above: Performed By: #### L [id number] #### [facility] ([facility] [address] [place] [address] ERYTHROCYTE MEAN CORPUSCULAR HEMOGLOBIN CONCENTRATION (G/DL) BY AUTOMATED 32.9 g/dL Normal 32.0-35.0 [facility] Comment on above: Performed By: #### L [id number] #### [facility] ([facility] [address] [place] [address] Hematocrit (Bld) [Volume fraction] 38.0 % Low 39.0-55.0 [facility] Comment on above: Performed By: #### L [id number] #### [facility] ([facility]) [address] [place] [address] Hemoglobin (Bld) [Mass/Vol] 12.5 g/dL Low 13.0-17.0 [facility] Comment on above: Performed By: #### L [id number] #### [facility] ([facility]) [address] [place] [address] MCH (RBC) [Entitic mass] 30.1 pg Normal 27.0-33.0 [facility] Comment on above: Performed By: #### L [id number] #### [facility] ([facility]) [address] [place] [address] MCV (RBC) [Entitic vol] 91.6 fL Normal 82.0-98.0 [facility] Comment on above: Performed By: #### L [id number] #### [facility] ([facility]) [address] [place] [address] PLATELETS (10*3/UL) IN BLOOD AUTOMATED COUNT 176 10*3/uL Normal 150-400 [facility] Comment on above: Performed By: #### L [id number] #### [facility] ([facility]) [address] [place] [address] RBC (Bld) [#/Vol] 4.15 10*6/uL Low 4.20-5.70 [facility] Comment on above: Performed By: #### L [id number] #### [facility] ([facility]) [address] [place] [address] WBC (Bld) [#/Vol] 6.88 10*3/uL Normal 4.00-10.60 [facility] Comment on above: Performed By: #### L [id number] #### [facility] ([facility] [address] [place] [address] NURSNOTEon 02-14-2024 NURSNOTE Discharge instructio n given , patient verbalized understanding, no follow up questions asked Normal [facility] POCT GLUCOSE METER UNSOLICIT ED RESULTSon 02-14-2024 Glucose [Mass/Vol] 231 mg/dL High 70-105 [facility] Comment on above: Order Comment: Waive d Testing in the ED is performed under the ED CLIA certificate #[id number]. Result Comment: [email or web address] Performed By: #### L [id number] ####[facility] ([facility])[address] [place] [address] Glucose [Mass/Vol] 128 mg/dL High 70-105 [facility] Comment on above: Order Comment: Waive d Testing in the ED is performed under the ED CLIA certificate #[id number]. Result Comment: [email or web address] Performed By: #### L [id number] ####[facility] ([facility])[address] [place] [address] TROPONIN Ion 02-14-2024 Troponin I.cardiac [Mass/Vol] 1.08 ng/mL Critically high 0.00-0.04 [facility] Comment on above: Result Comment: M-IL EVIOUS CRITICAL RESULT Previous result verified on 02/14/2024 0605 on specimen/case [id number] called with component Troponin I for procedure Troponin I with value 1.69 ng/mL. Performed By: #### L [id number] #### [facility] ([facility]) [address] [place] [address] Troponin I.cardiac [Mass/Vol] 1.69 ng/mL Critically high 0.00-0.04 [facility] Comment on above: Performed By: #### L [id number] ####[facility] ([facility])[address] [place] [address] 30on 02-13-2024 30 The patient is Moder ately Stable - Low risk of patient condition declining or worsening The patient's goals for the shift include get better The clinical goals for the shift include VSS Normal [facility] 30 The patient is Moder ately [...] and behaviors that affect risk of falls [place] fall precautions as indicated by assessment Educate [...] and behaviors that affect risk of falls [place] fall precautions as indicated by assessment Educate [...] and prevent overall improvement and discharge Normal [facility] ANTI-XA (HEPARIN LEVEL)on HEPARIN UNFRACTIONATED (U/ML) IN PPP BY CHROMOGENIC METHOD 0.85 IU/mL High 0.3-0.7 [facility] Comment on above: Order Comment: Check anti-Xa level every 6 hours while on heparin infusion, or per protocol. Result Comment: Merom roxaban and Apixaban will interfere with the anti Xa assay used to monitor UFH and LMWH. Performed By: #### L [id number] #### [facility] (BE[facility]ER) [address] [place] [address] APTTon 02-13-2024 ACTIVATED PARTIAL THROMBOPLASTIN TIME IN PPP BY COAGULATION ASSAY 93.5 Seconds High 25.0-35.0 [facility] Comment on above: Order Comment: Basel ine aPTT before initiating heparin infusion. Result Comment: Clin ical significance of the APTT is questionable in the presence of heparin. Performed By: #### L [id number] #### [facility] ([facility]) [address] [place] [address] B-TYPE NATRIURETIC PEPTIDEon 02-13-2024 Natriuretic peptide B (Bld) [Mass/Vol] 693 pg/mL High 0-100 [facility] Comment on above: Performed By: #### L [id number] #### [facility] ([facility]) [address] [place] [address] BASIC METABOLIC PANELon 01-30 Anion gap [Moles/Vol] 10 mmol/L Normal 7-20 [facility] Comment on above: Performed By: #### L [id number] #### [facility] ([facility]) [address] [place] [address] Calcium [Mass/Vol] 8.9 mg/dL Normal 8.6-10.3 [facility] Comment on above: Performed By: #### L [id number] #### [facility] ([facility]) [address] [place] [address] Chloride [Moles/Vol] 107 mmol/L Normal 98-107 [place] Comment on above: Performed By: #### L [id number] #### [facility] ([facility]) [address] [place] [address] CO2 [Moles/Vol] 25 mmol/L Normal 21-31 [facility] Comment on above: Performed By: #### L [id number] #### [facility] ([facility]) [address] [place] [address] Creatinine [Mass/Vol] 1.61 mg/dL High 0.70-1.30 [facility] Comment on above: Performed By: #### L [id number] #### [facility] ([facility]) [address] [place] [address] GLOMERULAR FILTRATION RATE ML/MIN/1.73 SQ M.PREDICTED 45.2 mL/min/1.73m*2 Low >60.0 [facility] Comment on above: Result Comment: [facility]???s estimated glomerular filtration rate (eGFR) will [...] individuals. Performed By: #### L [id number] #### [facility] ([facility]) [address] [place] [address] Glucose [Mass/Vol] 174 mg/dL High 70-100 [facility] Comment on above: Performed By: #### L [id number] #### [facility] ([facility]) [address] [place] [address] Potassium [Moles/Vol] 4.3 mmol/L Normal 3.5-5.1 [facility] Comment on above: Performed By: #### L [id number] #### [facility] ([facility]) [address] [place] [address] Sodium [Moles/Vol] 138 mmol/L Normal 136-145 [facility] Comment on above: Performed By: #### L [id number] #### [facility] ([facility]) [address] [place] [address] Urea nitrogen [Mass/Vol] 20 mg/dL Normal 7-25 [facility] Comment on above: Performed By: #### L [id number] #### [facility] ([facility]) [address] [place] [address] UREA NITROGEN/CREATININE (MASS RATIO) IN SER/PLAS 12.4 Normal [facility] Comment on above: Performed By: #### L [id number] #### [facility] ([facility]) [address] [place] [address] CBC WITH AUTO DIFFERENTIALon 02-13-2024 Basophils (Bld) [#/Vol] 0.05 10*3/uL Normal 0.00-0.20 [facility] Comment on above: Performed By: #### L [id number] ####[facility] (BEAKER)[address] [place] [address] Basophils/100 WBC (Bld) 0.7 % Normal 0.0-1.0 [facility] Comment on above: Performed By: #### L [id number] ####[facility] (BEAKER)[address] [place] [address] Eosinophils (Bld) [#/Vol] 0.13 10*3/uL Normal 0.00-0.50 [facility] Comment on above: Performed By: #### L [id number] ####[facility] (BEAKER)[address] [place] [address] Eosinophils/100 WBC (Bld) 1.8 % Normal 0.0-6.0 [facility] Comment on above: Performed By: #### L [id number] ####[facility] ([facility] [place] [address] Erythrocyte distribution width (RBC) [Ratio] 13.4 % Normal 11.5-15.0 [facility] Comment on above: Performed By: #### L [id number] ####[facility] (BEAKER)[address] [place] [address] ERYTHROCYTE MEAN CORPUSCULAR HEMOGLOBIN CONCENTRATION (G/DL) BY AUTOMATED 34.1 g/dL Normal 32.0-35.0 [facility] Comment on above: Performed By: #### L [id number] ####[facility] (BEAKER)[address] [place] [address] Hematocrit (Bld) [Volume fraction] 40.2 % Normal 39.0-55.0 [facility] Comment on above: Performed By: #### L [id number] ####[facility] (BEAKER)[address] [place] [address] Hemoglobin (Bld) [Mass/Vol] 13.7 g/dL Normal 13.0-17.0 [facility] Comment on above: Performed By: #### L [id number] ####[facility] (BEAKER)[address] [place] [address] Immature granulocytes (Bld) [#/Vol] 0.03 10*3/uL Normal 0.00-0.20 [facility] Comment on above: Performed By: #### L [id number] ####[facility] (BEAKER)[address] [place] [address] Immature granulocytes/100 WBC (Bld) 0.4 % Normal 0.0-1.0 [facility] Comment on above: Performed By: #### L [id number] ####[facility] ([facility])[address] [place] [address] Lymphocytes (Bld) [#/Vol] 1.64 10*3/uL Normal 1.20-4.00 [facility] Comment on above: Performed By: #### L [id number] ####[facility] ([facility])[address] [place] [address] Lymphocytes/100 WBC (Bld) 22.3 % Normal 20.0-45.0 [facility] Comment on above: Performed By: #### L [id number] ####[facility] ([facility])[address] [place] [address] MCH (RBC) [Entitic mass] 30.2 pg Normal 27.0-33.0 [facility] Comment on above: Performed By: #### L [id number] ####[facility] (BEAKER)[address] [place] [address] MCV (RBC) [Entitic vol] 88.5 fL Normal 82.0-98.0 [facility] Comment on above: Performed By: #### L [id number] ####[facility] (BEAKER)[address] [place] [address] Monocytes (Bld) [#/Vol] 0.69 10*3/uL Normal 0.10-1.00 [facility] Comment on above: Performed By: #### L [id number] ####[facility] ([facility])[address] [place] [address] Monocytes/100 WBC (Bld) 9.4 % Normal 5.0-12.0 [facility] Comment on above: Performed By: #### L [id number] ####[facility] ([facility])[address] [place] [address] Neutrophils (Bld) [#/Vol] 4.80 10*3/uL Normal 1.60-7.60 [facility] Comment on above: Performed By: #### L [id number] ####[facility] ([facility])[address] [place] [address] Neutrophils/100 WBC (Bld) 65.4 % Normal 40.0-72.0 [facility] Comment on above: Performed By: #### L [id number] ####[facility] ([facility])[address] [place] [address] NRBC (PER 100 WBCS) BY AUTOMATED COUNT 0.0 % Normal 0 [facility] Comment on above: Performed By: #### L [id number] ####[facility] ([facility])[address] [place] [address] PLATELETS (10*3/UL) IN BLOOD AUTOMATED COUNT 202 10*3/uL Normal 150-400 [facility] Comment on above: Performed By: #### L [id number] ####[facility] ([facility])[address] [place] [address] RBC (Bld) [#/Vol] 4.54 10*6/uL Normal 4.20-5.70 [facility] Comment on above: Performed By: #### L [id number] ####[facility] ([facility])[address] [place] [address] WBC (Bld) [#/Vol] 7.34 10*3/uL Normal 4.00-10.60 [facility] Comment on above: Performed By: #### L [id number] ####[facility] ([facility] [place] [address] CONSULTon 02-13-2024 CONSULT ----- ----- Attestation signed [...] III who presented as a transferred from [facility] with NSTEMI. Cardiology planning for cath [...] (H) 08/31 (more content not included)... Normal [facility] CONSULT ----- ----- Attestation signed by [...] III who presented as a transferred from [facility] with NSTEMI. The patient complained of [...] and nitro drip. When he arrived to [facility] he was chest pain-free. Troponin [...] (Pr (more content not included)... [facility] HPon 02-13-2024 HP H&P reviewed. The [...] were addressed and answered. Jenny Fernandez MD Social Media Sr Strategy Manager - PGY6 [facility] Pt seen and examined. Agree with above Parul Pena MD [facility] MAGNESIUMon 02-13-2024 Magnesium [Mass/Vol] 2.0 mg/dL Normal 1.9-2.7 [place] Comment on above: Performed By: #### L [id number] #### [facility] ([facility]) [address] [place] [address] POCT GLUCOSE METER UNSOLICIT ED RESULTSon 02-13-2024 Glucose [Mass/Vol] 200 mg/dL High 70-105 [facility] Comment on above: Order Comment: Waive d Testing in the ED is performed under the ED CLIA certificate #[id number]. Result Comment: [email or web address] [email or web address] Performed By: #### L [id number] #### [facility] ([facility] [address] [place] [address] Glucose [Mass/Vol] 187 mg/dL High 70-105 [facility] Comment on above: Order Comment: Waive d Testing in the ED is performed under the ED CLIA certificate #[id number]. Result Comment: [email or web address] [email or web address] Performed By: #### L [id number] #### [facility] ([facility]) [address] [place] [address] Glucose [Mass/Vol] 141 mg/dL High 70-105 [facility] Comment on above: Order Comment: Waive d Testing in the ED is performed under the ED CLIA certificate #[id number]. Result Comment: [email or web address] Performed By: #### L [id number] #### [facility] (flux - neutrinity) [address] [place] [address] Glucose [Mass/Vol] 166 mg/dL High 70-105 [facility] Comment on above: Order Comment: Waive d Testing in the ED is performed under the ED CLIA certificate #[id number]. Result Comment: [email or web address] Performed By: #### L [id number] #### [facility] (flux - neutrinity) [address] [place] [address] PROTIME-INRon 02-13-2024 INR IN PPP BY COAGULATION ASSAY 1.17 High 0.90-1.10 [facility] Comment on above: Result Comment: ACCC [...] CHEST 1995;[id number]. Performed By: #### L [id number] ####[facility] (flux - neutrinity)[address] [place] [address] PROTHROMBIN TIME (PT) IN PPP BY COAGULATION ASSAY 14.9 Seconds High 12.3-14.8 [facility] Comment on above: Performed By: #### L [id number] ####[facility] ([facility])[address] [place] [address] TROPONIN Ion 02-13-2024 Troponin I.cardiac [Mass/Vol] 2.02 ng/mL Critically high 0.00-0.04 [facility] Comment on above: Result Comment: M-IL EVIOUS CRITICAL RESULT Previous result verified on 02/13/2024 0606 on specimen/case [id number] called with component Troponin I for procedure Troponin I with value 3.34 ng/mL. Performed By: #### L [id number] ####[facility] ([facility])[address] [place] [address] Troponin I.cardiac [Mass/Vol] 2.10 ng/mL Critically high 0.00-0.04 [facility] Comment on above: Result Comment: M-IL EVIOUS CRITICAL RESULT Previous result verified on 02/13/2024 0606 on specimen/case [id number] called with component Troponin I for procedure Troponin I with value 3.34 ng/mL. Performed By: #### L [id number] #### [facility] ([facility]) [address] [place] [address] Troponin I.cardiac [Mass/Vol] 3.34 ng/mL Critically high 0.00-0.04 [facility] Comment on above: Result Comment: M-TR OPONIN INITIAL CRITICAL HIGH; RESPUN AND RETESTED Performed By: #### L [id number] #### [facility] ([facility]) [address] [place] [address] Activated partial thrombopla stin time (aPTT) in platelet poor plasma by coagulation aon 02-12-2024 aPTT Coag (PPP) [Time] Activated partial thromboplastin time (aPTT) in platelet poor plasma by coagulation a 22.3-36.2 [facility] Basophils Auto (Bld) [#/Vol] on 02-12-2024 Basophils (Bld) [#/Vol] Automated basophil count 0.0-0.1 [facility] Basophils/100 WBC Auto (Bld) on 02-12-2024 Basophils/100 WBC (Bld) Automated basophil % 0.2-2.0 [facility] Eosinophils/100 WBC Auto (Bl d)on 02-12-2024 Eosinophils/100 WBC (Bld) Automated eosinophil % 0.9-7.0 [facility] Erythrocyte distribution wid th Auto (RBC) [Ratio]on 02-12-2024 Erythrocyte distribution width (RBC) [Ratio] Erythrocyte distribution width [Ratio] by Automated count 11.0-15.0 [facility] Estimated glomerular filtrat ion rate (GFR) non- Americanon 02-12-2024 GFR/1.73 sq M.predicted among non-blacks MDRD (S/P/Bld) [Vol rate/Area] Estimated glomerular filtration rate (GFR) non- Low >=60 mL/min/1.7 3m 2 [facility] Hematocrit Auto (Bld) [Volum e fraction]on 02-12-2024 Hematocrit (Bld) [Volume fraction] Hematocrit [Volume Fraction] of Blood by Automated count 42.0-54.0 [facility] Hemoglobin [Mass/volume] in Bloodon 02-12-2024 Hemoglobin (Bld) [Mass/Vol] Hemoglobin [Mass/volume] in Blood 14.0-18.0 [facility] INR in Platelet poor plasma by Coagulation assayon 02-12-2024 INR Coag (PPP) [Relative time] INR in Platelet poor plasma by Coagulation assay [facility] Comment on above: DESIRED INR:2.0-3.0 CONDITIONS NOT LISTED BELOW2.5-3.5 FOR PROSTHETIC HEART VALVE REPLACEMENT2.5-3.5 RECURRENT THROMBOSIS Laboratory - Chemistry and C hemistry - challengeon 02-12-2024 Calcium [Mass/Vol] 9.4 mg/dL 8.5-10.1 [facility] Chloride [Moles/Vol] 106 mmol/L 98-107 [facility] CO2 [Moles/Vol] 22.9 mmol/L 21.0-32.0 [facility] Creatinine [Mass/Vol] 1.97 mg/dL High 0.70-1.30 [facility] GFR/1.73 sq M.predicted MDRD (S/P/Bld) [Vol rate/Area] 41 mL/min/{1.73_m2} Low >=60 mL/min/1.7 3m 2 [facility] Glucose [Mass/Vol] 236 mg/dL High 74-106 [facility] Potassium [Moles/Vol] 3.9 mmol/L 3.5-5.1 [facility] Comment on above: SPECIMEN SLIGHTLY HE MOLYZED Sodium [Moles/Vol] 141 mmol/L 136-145 [facility] Urea nitrogen [Mass/Vol] 21.0 mg/dL High 7.0-18.0 [facility] Urea nitrogen/Creatinine [Mass ratio] 10.7 mg/mg [facility] Laboratory - Hematology and Cell countson 02-12-2024 Immature granulocytes/100 WBC (Bld) 0.5 % 0.0-0.5 [facility] Leukocytes [#/volume] correc soraya for nucleated erythrocytes in Blood by Automated counon 02-12-2024 WBC corrected for nucl RBC Auto (Bld) [#/Vol] Leukocytes [#/volume] corrected for nucleated erythrocytes in Blood by Automated coun 4.0-11.0 [facility] Lymphocytes Auto (Bld) [#/Vo l]on 02-12-2024 Lymphocytes (Bld) [#/Vol] Lymphocytes [#/volume] in Blood by Automated count 1.2-3.8 [facility] Lymphocytes/100 WBC Auto (Bl d)on 02-12-2024 Lymphocytes/100 WBC (Bld) Lymphocytes/100 leukocytes in Blood by Automated count 20.5-60.0 [facility] MCH Auto (RBC) [Entitic mass ]on 02-12-2024 MCH (RBC) [Entitic mass] MCH [Entitic mass] by Automated count 25.9-34.0 [facility] MCHC Auto (RBC) [Mass/Vol]on 02-12-2024 MCHC (RBC) [Mass/Vol] MCHC [Mass/volume] by Automated count 29.9-35.2 [facility] MCV Auto (RBC) [Entitic vol] on 02-12-2024 MCV (RBC) [Entitic vol] MCV [Entitic volume] by Automated count 80.0-94.0 [facility] Monocytes Auto (Bld) [#/Vol] on 02-12-2024 Monocytes (Bld) [#/Vol] Automated blood monocyte count 0.3-0.8 [facility] Monocytes/100 WBC Auto (Bld) on 02-12-2024 Monocytes/100 WBC (Bld) Automated monocyte % 1.7-12.0 [facility] Neutrophils Auto (Bld) [#/Vo l]on 02-12-2024 Neutrophils (Bld) [#/Vol] Neutrophils [#/volume] in Blood by Automated count 1.4-6.5 [facility] Neutrophils/100 WBC Auto (Bl d)on 02-12-2024 Neutrophils/100 WBC (Bld) Automated neutrophil % 43.0-75.0 [facility] No Panel Informationon 02-11 Troponin I High Sensitivity 85.0 pg/mL Critically high 4.0-76.1 [facility] Comment on above: RESULTS CALLED [...] Eosinophils # (Auto) 0.2 10 3/uL 0.0-0.7 [facility] Immature Granulocyte # (Auto) 0.04 10 3/uL High 0.00-0.03 [facility] Platelet mean volume Auto (B ld) [Entitic vol]on 02-12-2024 Platelet mean volume (Bld) [Entitic vol] Platelet mean volume [Entitic volume] in Blood by Automated count 9.5-13.5 [facility] Platelets Auto (Bld) [#/Vol] on 02-12-2024 Platelets (Bld) [#/Vol] Platelets [#/volume] in Blood by Automated count 150-450 [facility] Prothrombin time (PT)on 01-30 PT Coag (PPP) [Time] Prothrombin time (PT) 9.0- 11.6 [facility] RBC Auto (Bld) [#/Vol]on RBC (Bld) [#/Vol] Erythrocytes [#/volu me] in Blood by Automated count 4.70-6.10 [facility] Serum or plasma anion gap de terminationon 02-12-2024 Anion gap [Moles/Vol] Serum or plasma an ion gap determination [facility] Erythrocyte distribution wid th Auto (RBC) [Ratio]on 12-30-2023 Erythrocyte distribution width (RBC) [Ratio] 14.3 % 11.0-15.0 [facility] Estimated glomerular filtrat ion rate (GFR) non- Americanon 12-30-2023 GFR/1.73 sq M.predicted among non-blacks MDRD (S/P/Bld) [Vol rate/Area] 31 mL/min/{1.73_m2} Low >=60 [facility] Hematocrit Auto (Bld) [Volum e fraction]on 12-30-2023 Hematocrit (Bld) [Volume fraction] 45.2 % 42.0-54.0 [facility] Hemoglobin [Mass/volume] in Bloodon 12-30-2023 Hemoglobin (Bld) [Mass/Vol] 14.8 g/dL 14.0-18.0 [facility] Laboratory - Chemistry and C hemistry - challengeon 12-30-2023 Albumin [Mass/Vol] 3.8 g/dL 3.4-5.0 [facility] Calcium [Mass/Vol] 9.9 mg/dL 8.5-10.1 [facility] Chloride [Moles/Vol] 103 mmol/L 98-107 [facility] CO2 [Moles/Vol] 27.9 mmol/L 21.0-32.0 [facility] Creatinine [Mass/Vol] 2.10 mg/dL High 0.70-1.30 [facility] GFR/1.73 sq M.predicted MDRD (S/P/Bld) [Vol rate/Area] 38 mL/min/{1.73_m2} Low >=60 [facility] Glucose [Mass/Vol] 207 mg/dL High 74-106 [facility] Magnesium [Mass/Vol] 2.1 mg/dL 1.8-2.4 [facility] Potassium [Moles/Vol] 4.7 mmol/L 3.5-5.1 [facility] Sodium [Moles/Vol] 137 mmol/L 136-145 [facility] Urate [Mass/Vol] 4.1 mg/dL 3.5-7.2 [facility] Urea nitrogen [Mass/Vol] 29.0 mg/dL High 7.0-18.0 [facility] Urea nitrogen/Creatinine [Mass ratio] 13.8 mg/mg [facility] Laboratory - Urinalysison Protein (U) [Mass/Vol] 26.9 mg/dL High <=11.9 [facility] Leukocytes [#/volume] correc soraya for nucleated erythrocytes in Blood by Automated counon 12-30-2023 WBC corrected for nucl RBC Auto (Bld) [#/Vol] 8.7 10 3/uL 4.0-11.0 [facility] MCH Auto (RBC) [Entitic mass ]on 12-30-2023 MCH (RBC) [Entitic mass] 30.0 pg 25.9-34.0 [facility] MCHC Auto (RBC) [Mass/Vol]on 12-30-2023 MCHC (RBC) [Mass/Vol] 32.7 g/dL 29.9-35.2 [facility] MCV Auto (RBC) [Entitic vol] on 12-30-2023 MCV (RBC) [Entitic vol] 91.7 fL 80.0-94.0 [facility] No Panel Informationon 12-29 25-Hydroxy Vitamin D Total 47.5 ng/mL [facility] Comment on above: <20 ng/mL Vit D defi cient20-<30 ng/mL Vit D [id number] ng/mL Vit D sufficient>100 ng/mL Potential Toxicity Parathyroid Hormone (Intact) 27 pg/mL 15-65 [facility] Comment on above: Performed at: [facility] [id number] [place], [place] [id number] Director: Kwaku Park PhD, Phone: [phone] Phosphorus Level 3.7 mg/dL 2.6-4.7 [facility] Urine Random Creatinine 85.11 mg/dL 20.00-300. 00 [facility] Platelet mean volume Auto (B ld) [Entitic vol]on 12-30-2023 Platelet mean volume (Bld) [Entitic vol] 9.3 fL Low 9.5-13.5 [facility] Platelets Auto (Bld) [#/Vol] on 12-30-2023 Platelets (Bld) [#/Vol] 193 10 3/uL 150-450 [facility] RBC Auto (Bld) [#/Vol]on RBC (Bld) [#/Vol] 4.93 10 6/uL 4.70-6.10 [facility] Serum or plasma anion gap de terminationon 12-30-2023 Anion gap [Moles/Vol] 10.8 mmol/L [facility] Urine protein/creatinine rat ioon 12-30-2023 Protein/Creatinine (U) [Ratio] 0.32 [facility] HbA1c HPLC (d) [Mass fract ion]on 10-17-2023 HbA1c (Bld) [Mass fraction] 7.5 % [facility] No Panel Informationon 10-16 Bedside Glucose 108 [facility] Activated partial thrombopla stin time (aPTT) in platelet poor plasma by coagulation aon 09-26-2023 aPTT Coag (PPP) [Time] 28.8 s 22.3-36.2 [facility] Basophils Auto (Bld) [#/Vol] on 09-26-2023 Basophils (Bld) [#/Vol] 0.1 10 3/uL 0.0-0.1 [facility] Basophils/100 WBC Auto (Bld) on 09-26-2023 Basophils/100 WBC (Bld) 0.6 % 0.2-2.0 [facility] Eosinophils/100 WBC Auto (Bl d)on 09-26-2023 Eosinophils/100 WBC (Bld) 2.4 % 0.9-7.0 [facility] Erythrocyte distribution wid th Auto (RBC) [Ratio]on 09-26-2023 Erythrocyte distribution width (RBC) [Ratio] 14.3 % 11.0-15.0 [facility] Estimated glomerular filtrat ion rate (GFR) non- Americanon 09-26-2023 GFR/1.73 sq M.predicted among non-blacks MDRD (S/P/Bld) [Vol rate/Area] 39 mL/min/{1.73_m2} Low >=60 [facility] Globulin Calc (S) [Mass/Vol] on 09-26-2023 Globulin (S) [Mass/Vol] 4.0 g/dL [facility] Hematocrit Auto (Bld) [Volum e fraction]on 09-26-2023 Hematocrit (Bld) [Volume fraction] 49.4 % 42.0-54.0 [facility] Hemoglobin [Mass/volume] in Bloodon 09-26-2023 Hemoglobin (Bld) [Mass/Vol] 16.0 g/dL 14.0-18.0 [facility] INR in Platelet poor plasma by Coagulation assayon 09-26-2023 INR Coag (PPP) [Relative time] 0.99 {INR} [facility] Comment on above: DESIRED INR:2.0-3.0 CONDITIONS NOT LISTED BELOW2.5-3.5 FOR PROSTHETIC HEART VALVE REPLACEMENT2.5-3.5 RECURRENT THROMBOSIS Laboratory - Chemistry and C hemistry - challengeon 09-26-2023 Albumin [Mass/Vol] 4.1 g/dL 3.4-5.0 [facility] ALP [Catalytic activity/Vol] 146 U/L High 46-116 [facility] ALT [Catalytic activity/Vol] 32 U/L 16-63 [facility] AST [Catalytic activity/Vol] 26 U/L 15-37 [facility] Bilirubin [Mass/Vol] 0.7 mg/dL 0.2-1.0 [facility] Calcium [Mass/Vol] 9.2 mg/dL 8.5-10.1 [facility] Chloride [Moles/Vol] 104 mmol/L 98-107 [facility] CO2 [Moles/Vol] 24.8 mmol/L 21.0-32.0 [facility] Creatinine [Mass/Vol] 1.72 mg/dL High 0.70-1.30 [facility] GFR/1.73 sq M.predicted MDRD (S/P/Bld) [Vol rate/Area] 48 mL/min/{1.73_m2} Low >=60 [facility] Glucose [Mass/Vol] 206 mg/dL High 74-106 [facility] Potassium [Moles/Vol] 4.2 mmol/L 3.5-5.1 [facility] Protein [Mass/Vol] 8.1 g/dL 6.4-8.2 [facility] Sodium [Moles/Vol] 141 mmol/L 136-145 [facility] Urea nitrogen [Mass/Vol] 26.0 mg/dL High 7.0-18.0 [facility] Urea nitrogen/Creatinine [Mass ratio] 15.1 mg/mg [facility] Laboratory - Hematology and Cell countson 09-26-2023 Immature granulocytes/100 WBC (Bld) 0.3 % 0.0-0.5 [facility] Leukocytes [#/volume] correc soraya for nucleated erythrocytes in Blood by Automated counon 09-26-2023 WBC corrected for nucl RBC Auto (Bld) [#/Vol] 10.5 10 3/uL 4.0-11.0 [facility] Lymphocytes Auto (Bld) [#/Vo l]on 09-26-2023 Lymphocytes (Bld) [#/Vol] 2.0 10 3/uL 1.2-3.8 [facility] Lymphocytes/100 WBC Auto (Bl d)on 09-26-2023 Lymphocytes/100 WBC (Bld) 18.7 % Low 20.5-60.0 [facility] MCH Auto (RBC) [Entitic mass ]on 09-26-2023 MCH (RBC) [Entitic mass] 28.4 pg 25.9-34.0 [facility] MCHC Auto (RBC) [Mass/Vol]on 09-26-2023 MCHC (RBC) [Mass/Vol] 32.4 g/dL 29.9-35.2 [facility] MCV Auto (RBC) [Entitic vol] on 09-26-2023 MCV (RBC) [Entitic vol] 87.7 fL 80.0-94.0 [facility] Monocytes Auto (Bld) [#/Vol] on 09-26-2023 Monocytes (Bld) [#/Vol] 0.8 10 3/uL 0.3-0.8 [facility] Monocytes/100 WBC Auto (Bld) on 09-26-2023 Monocytes/100 WBC (Bld) 7.3 % 1.7-12.0 [facility] Neutrophils Auto (Bld) [#/Vo l]on 09-26-2023 Neutrophils (Bld) [#/Vol] 7.4 10 3/uL High 1.4-6.5 [facility] Neutrophils/100 WBC Auto (Bl d)on 09-26-2023 Neutrophils/100 WBC (Bld) 70.7 % 43.0-75.0 [facility] No Panel Informationon 09-25 Troponin I High Sensitivity 8614.2 pg/mL High 4.0-76.1 [facility] Comment on above: RESULTS CALLED [...] Eosinophils # (Auto) 0.3 10 3/uL 0.0-0.7 [facility] Immature Granulocyte # (Auto) 0.03 10 3/uL 0.00-0.03 [facility] Platelet mean volume Auto (B ld) [Entitic vol]on 09-26-2023 Platelet mean volume (Bld) [Entitic vol] 10.0 fL 9.5-13.5 [facility] Platelets Auto (Bld) [#/Vol] on 09-26-2023 Platelets (Bld) [#/Vol] 194 10 3/uL 150-450 [facility] Prothrombin time (PT)on 08-31 PT Coag (PPP) [Time] 10.5 s 9.0-11.6 [facility] RBC Auto (Bld) [#/Vol]on RBC (Bld) [#/Vol] 5.63 10 6/uL 4.70-6.10 [facility] Serum or plasma albumin/glob ulin mass ratioon 09-26-2023 Albumin/Globulin [Mass ratio] 1.0 {ratio} [facility] Serum or plasma anion gap de terminationon 09-26-2023 Anion gap [Moles/Vol] 16.4 mmol[facility]L [facility] Panel Informationon 08-26 Prostate Specific Antigen Screen 1.37 ng/mL <=4.00 [facility] Erythrocyte distribution wid th Auto (RBC) [Ratio]on 06-24-2023 Erythrocyte distribution width (RBC) [Ratio] 14.6 % 11.0-15.0 [facility] Estimated glomerular filtrat ion rate (GFR) non- Americanon 06-24-2023 GFR/1.73 sq M.predicted among non-blacks MDRD (S/P/Bld) [Vol rate/Area] 38 mL/min/{1.73_m2} >=60 [facility] Hematocrit Auto (Bld) [Volum e fraction]on 06-24-2023 Hematocrit (Bld) [Volume fraction] 46.2 % 42.0-54.0 [facility] Hemoglobin [Mass/volume] in Bloodon 06-24-2023 Hemoglobin (Bld) [Mass/Vol] 14.5 g/dL 14.0-18.0 [facility] Laboratory - Chemistry and C hemistry - challengeon 06-24-2023 Albumin [Mass/Vol] 4.0 g/dL 3.4-5.0 [facility] Calcium [Mass/Vol] 9.2 mg/dL 8.5-10.1 [facility] Chloride [Moles/Vol] 106 mmol/L 98-107 [facility] CO2 [Moles/Vol] 25.4 mmol/L 21.0-32.0 [facility] Creatinine [Mass/Vol] 1.76 mg/dL 0.70-1.30 [facility] GFR/1.73 sq M.predicted MDRD (S/P/Bld) [Vol rate/Area] 47 mL/min/{1.73_m2} >=60 [facility] Glucose [Mass/Vol] 212 mg/dL 74-106 [facility] Magnesium [Mass/Vol] 2.1 mg/dL 1.8-2.4 [facility] Potassium [Moles/Vol] 4.5 mmol/L 3.5-5.1 [facility] Sodium [Moles/Vol] 142 mmol/L 136-145 [facility] Urate [Mass/Vol] 4.3 mg/dL 3.5-7.2 [facility] Urea nitrogen [Mass/Vol] 30.0 mg/dL 7.0-18.0 [facility] Urea nitrogen/Creatinine [Mass ratio] 17.0 mg/mg [facility] Laboratory - Urinalysison Protein (U) [Mass/Vol] 11.5 mg/dL <=11.9 [facility] Leukocytes [#/volume] correc soraya for nucleated erythrocytes in Blood by Automated counon 06-24-2023 WBC corrected for nucl RBC Auto (Bld) [#/Vol] 9.6 10 3/uL 4.0-11.0 [facility] MCH Auto (RBC) [Entitic mass ]on 06-24-2023 MCH (RBC) [Entitic mass] 28.5 pg 25.9-34.0 [facility] MCHC Auto (RBC) [Mass/Vol]on 06-24-2023 MCHC (RBC) [Mass/Vol] 31.4 g/dL 29.9-35.2 [facility] MCV Auto (RBC) [Entitic vol] on 06-24-2023 MCV (RBC) [Entitic vol] 90.8 fL 80.0-94.0 [facility] No Panel Informationon 06-23 25-Hydroxy Vitamin D Total 42.5 ng/mL [facility] Comment on above: <20 ng/mL Vit D defi cient20-<30 ng/mL Vit D [id number] ng/mL Vit D sufficient>100 ng/mL Potential Toxicity Parathyroid Hormone (Intact) 48 pg/mL 15-65 [facility] Comment on above: Performed at: CB - [email or web address] [address] [id number] Director: Kwaku Park PhD, Phone: [phone] Phosphorus Level 3.6 mg/dL 2.6-4.7 [facility] Urine Random Creatinine 60.60 mg/dL 20.00-300. 00 [facility] Platelet mean volume Auto (B ld) [Entitic vol]on 06-24-2023 Platelet mean volume (Bld) [Entitic vol] 10.2 fL 9.5-13.5 [facility] Platelets Auto (Bld) [#/Vol] on 06-24-2023 Platelets (Bld) [#/Vol] 178 10 3/uL 150-450 [facility] RBC Auto (Bld) [#/Vol]on RBC (Bld) [#/Vol] 5.09 10 6/uL 4.70-6.10 [facility] Serum or plasma anion gap de terminationon 06-24-2023 Anion gap [Moles/Vol] 15.1 mmol/L [facility] Urine protein/creatinine rat ioon 06-24-2023 Protein/Creatinine (U) [Ratio] 0.19 [facility] HbA1c HPLC (Bld) [Mass fract ion]on 06-18-2023 HbA1c (Bld) [Mass fraction] 6.1 % [facility] No Panel Informationon 06-17 Bedside Glucose 150 [facility] Cholesterol in LDL Calc [Mas s/Vol]on 06-13-2023 Cholesterol in LDL [Mass/Vol] 29.0 mg/dL [facility] Comment on above: <100 mg/dl [id number] 0-129 mg/dl NEAR OR ABOVE [id number] mg/dl BORDERLINE [id number] mg/dl HIGH>190 mg/dl VERY HIGH Cholesterol in VLDL Calc [Ma ss/Vol]on 03-14-2024 Cholesterol in VLDL [Mass/Vol] 24.8 mg/dL [facility] Laboratory - Chemistry and C hemistry - challengeon 06-13-2023 Cholesterol [Mass/Vol] 87 mg/dL <=200 [facility] Cholesterol in HDL [Mass/Vol] 34 mg/dL 40-60 [facility] Comment on above: > or =60 mg/dl - LOW CARDIOVASCULAR RISK<40 mg/dl - HIGH CARDIOVASCULAR RISK Triglyceride [Mass/Vol] 124 mg/dL <=150 [facility] Serum or plasma total choles terol/high density lipoprotein (HDL) cholesterol mass yulia 06-13-2023 Cholesterol.total/Chol esterol in HDL [Mass ratio] 2.6 {ratio} [facility] Comment on above: 3.3 - 4.4 LOW RISK4. 4 - 7.1 AVERAGE RISK7.1 - 11.0 MODERATE RISK>11.0 HIGH RISK A1C HEMOGLOBINon 03-12-2023 HbA1c (Bld) [Mass fraction] 7.1 % [facility] Other Glucose - FINGER STICKon Glucose [Mass/Vol] 151 mg/dL [facility] Other HbA1c (Bld) [Mass fraction]o n 03-12-2023 A1C [facility]EMOGLOBIN [employer] Other [facility] CHEST WO CONon CT CHEST [...] HAZEL SCHILLING Date: 2022-08-09 14:00 Normal [facility] A1C HEMOGLOBINon 06-26-2022 HbA1c (Bld) [Mass fraction] 7.4 % [facility] Other Glucose - FINGER STICKon Glucose [Mass/Vol] 267 mg/dL [facility] Other HbA1c (Bld) [Mass fraction]o n 06-26-2022 A1C HEMOGLOBIN [employer] Other PTH INTACTon 06-26-2022 PTH, Intact 37 pg/mL Normal 15-65 [facility] Comment on above: Performed By: #### C MP, CMADM #### [facility] [address] [place] [address] Dr. Mirza Sadler FERRITINon 06-25-2022 Ferritin [Mass/Vol] 269.0 ng/mL Normal 26.0-388.0 [facility] Comment on above: Performed By: #### B [employer] #### [facility] [address] [address] [address] Mirza Sadler HEMOGRAM AND PLATELon 2022 Hematocrit (Bld) [Volume fraction] 44.7 % Normal 42.0-54.0 [facility] Comment on above: Performed By: #### P T, PTT #### [facility] [address] [place] [address] Dr. Mirza Sadler Hemoglobin (Bld) [Mass/Vol] 15.1 g/dL Normal 14.0-18.0 [facility] Comment on above: Performed By: #### P T, PTT #### [facility] [address] [place] [address] Dr. Mirza Sadler MCH (RBC) [Entitic mass] 30.0 pg Normal 25.9-34.0 [facility] Comment on above: Performed By: #### P T, PTT #### [facility] [address] [place] [address] Dr. Mirza Sadler MCHC (RBC) [Mass/Vol] 33.8 g/dL Normal 29.9-35.2 [facility] Comment on above: Performed By: #### P T, PTT #### [facility] [address] [place] [address] Dr. Mirza Sadler MCV (RBC) [Entitic vol] 88.9 fL Normal 80.0-94.0 [facility] Comment on above: Performed By: #### P T, PTT #### [facility] [address] [place] [address] Dr. Mirza Sadler PLT 199 103/ul Normal 150-450 [facility] Comment on above: Performed By: #### P T, PTT #### [facility] [address] [place] [address] Dr. Mirza Sadler RBC 5.03 106/ul Normal 4.70-6.10 [facility] Comment on above: Performed By: #### P T, PTT #### [facility] [address] [place] [address] Dr. Mirza Sadler WBC 8.7 103/ul Normal 4.0-11.0 [facility] Comment on above: Performed By: #### P T, PTT #### [facility] [address] [place] [address] Dr. Mirza Sadler IRON AND TIBCon 06-25-2022 % SATURATION 28.6 % Normal [facility] Comment on above: Performed By: #### [employer] #### [facility] [address] [place] [address] Dr. Mirza Sadler Iron [Mass/Vol] 82.0 ug/dL Normal 65.0-175.0 [facility] Comment on above: Performed By: #### [employer] #### [facility] [address] [place] [address] Dr. Mirza Sadler TIBC DIRECT 287.0 ug/dL Normal 250.0-450. 0 [facility] Comment on above: Performed By: #### [employer] #### [facility] [address] [place] [address] Dr. Mirza Sadler MAGNESIUMon 06-25-2022 Magnesium [Mass/Vol] 2.0 mg/dL Normal 1.8-2.4 [facility] Comment on above: Performed By: #### [employer] #### [facility] [address] [place] [address] Dr. Mirza Sadler RENAL FUNCTION PANELon 06-25 Albumin [Mass/Vol] 4.2 g/dL Normal 3.4-5.0 [facility] Comment on above: Performed By: #### [employer] #### [facility] [address] [place] [address] Dr. Mirza Sadler Calcium [Mass/Vol] 9.3 mg/dL Normal 8.5-10.1 [facility] Comment on above: Performed By: #### [employer] #### [facility] [address] [place] [address] Dr. Mirza Sadler Chloride [Moles/Vol] 108 mmol/L Critically high 98-107 [facility] Comment on above: Performed By: #### [employer] #### [facility] [address] [place] [address] Dr. Mirza Sadler CO2 [Moles/Vol] 29.5 mmol/L Normal 21.0-32.[address] [facility] Comment on above: Performed By: #### [employer] #### [facility] [address] [place] [address] Dr. Mirza Sadler Creatinine [Mass/Vol] 1.87 mg/dL Critically high 0.70-1.30 [facility] Comment on above: Performed By: #### [employer] #### [facility] [address] [address] [address] Mirza Sadler EGFR-AF GUATEMALAN 43 mL/min/1.73m2 Critically low >=60 [facility] Comment on above: Performed By: #### [employer] #### [facility] [address] [address] [address] Mirza Sadler EGFR-NON AF GUATEMALAN 36 mL/min/1.73m2 Critically low >=60 [facility] Comment on above: Performed By: #### [employer] #### [facility] [address] [address] [address] Mirza Sadler Glucose [Mass/Vol] 181 mg/dL Critically high 74-106 [facility] Comment on above: Performed By: #### [employer] #### [facility] [address] [place] [address] Dr. Mirza Sadler Phosphate [Mass/Vol] 4.8 mg/dL Critically high 2.6-4.7 [facility] Comment on above: Performed By: #### [employer] #### [facility] [address] [place] [address] Dr. Mirza Sadler Potassium [Moles/Vol] 4.8 mmol/L Normal 3.5-5.1 [facility] Comment on above: Performed By: #### [employer] #### [facility] [address] [place] [address] Dr. Mirza Sadler Sodium [Moles/Vol] 146 mmol/L Critically high 136-145 [facility] Comment on above: Performed By: #### [employer] #### [facility] [address] [place] [address] Dr. Mirza Sadler Urea nitrogen [Mass/Vol] 40.0 mg/dL Critically high 7.0-18.0 [facility] Comment on above: Performed By: #### [employer] #### [facility] [address] [place] [address] Dr. Mirza Sadler UA RANDOM W/MICROSCOPICon BACTERIA NONE SEEN Normal NONE SEEN [facility] Comment on above: Performed By: #### H STROPN #### [facility] [address] [place], [place] [id number] Dr. Mirza Sadler Bilirubin Ql (U) Negative Normal NEGATIVE [facility] Comment on above: Performed By: #### H STROPN #### [facility] [address] [place] [address] Dr. Mirza Sadler CAST NONE SEEN Normal NONE SEEN [facility] Comment on above: Performed By: #### H STROPN #### [facility] [address] [place] [address] Dr. Mirza Sadler Clarity (U) CLEAR Normal CLEAR [facility] Comment on above: Performed By: #### H STROPN #### [facility] [address] [place] [address] Dr. Mirza Sadler Color (U) LT. YELLOW Normal YELLOW [facility] Comment on above: Performed By: #### H STROPN #### [facility] [address] [place] [address] Dr. Mirza Sadler Crystals LM Nom (Urine sed) NONE SEEN Normal NONE SEEN [facility] Comment on above: Performed By: #### H STROPN #### [facility] [address] [place] [address] Dr. Mirza Sadler Epithelial cells LM Ql (Urine sed) FEW Abnormal NONE SEEN /RARE [facility] Comment on above: Performed By: #### H STROPN #### [facility] [address] [place] [address] Dr. Mirza Sadler Glucose Ql (U) 500 mg/dl Abnormal NEGATIVE [facility] Comment on above: Performed By: #### H STROPN #### [facility] [address] [place] [address] Dr. Mirza Sadler Hemoglobin Ql (U) Negative Normal NEGATIVE The [facility] Comment on above: Performed By: #### H STROPN #### [facility] [address] [place] [address] Dr. Mirza Sadler Ketones Ql (U) Negative Normal NEGATIVE [facility] Comment on above: Performed By: #### H STROPN #### [facility] [address] [place] [address] Dr. Mirza Sadler LEUKOCYTES Negative Normal NEGATIVE [facility] Comment on above: Performed By: #### H STROPN #### [facility] [address] [place] [address] Dr. Mirza Sadler MUCOUS NONE SEEN Normal NONE SEEN [facility] Comment on above: Performed By: #### H STROPN #### [facility] [address] [place] [address] Dr. Mirza Sadler Nitrite Ql (U) Negative Normal NEGATIVE [facility] Comment on above: Performed By: #### H STROPN #### [facility] [address] [place] [address] Dr. Mirza Sadler pH (U) 5.5 [pH] Normal 5-9 [facility] Comment on above: Performed By: #### H STROPN #### [facility] [address] [place] [address] Dr. Mirza Sadler RBC 0-2 Normal 0-2 [facility] Comment on above: Performed By: #### H STROPN #### [facility] [address] [place] [address] Dr. Mirza Sadler SPEC GRAVITY 1.015 Normal 1.005-<=1. 025 [facility] Comment on above: Performed By: #### H STROPN #### [facility] [address] [place] [address] Dr. Mirza Sadler UA PROTEIN Negative Normal NEGATIVE/ TRACE [facility] Comment on above: Performed By: #### H STROPN #### [facility] [address] [place] [address] Dr. Mirza Sadler Urobilinogen Qn (U) 0.2 {Luisito'U}/dL Normal 0.2 - 1. 0 [facility] Comment on above: Performed By: #### H STROPN #### [facility] [address] [place] [address] Dr. Mirza Sadler WBC NONE SEEN Normal NONE SEEN [facility] Comment on above: Performed By: #### H STROPN #### [facility] [address] [place] [address] Dr. Mirza Sadler URIC ACID SERUMon 03-27-2023 Urate [Mass/Vol] 6.1 mg/dL Normal 3.5-7.2 [facility] Comment on above: Performed By: #### B [employer] #### [facility] [address] [place] [address] Dr. Mirza Sadler URINE T PROTEIN CREAT RATIOo n 06-25-2022 Protein (U) [Mass/Vol] 9.7 mg/dL Normal <=12.0 [facility] Comment on above: Performed By: #### C TANIA, DOMDM #### [facility] [address] [place] [address] Dr. Mirza Sadler UR PROT CREAT RAT 0.14 Normal [facility] Comment on above: Performed By: #### C TANIA, CMADM #### [facility] [address] [place] [address] Dr. Mirza Sadler URINE CREAT 71.45 mg/dL Normal 20.00-300. 00 [facility] Comment on above: Performed By: #### C TANIA, DOMDM #### [facility] [address] [place] [address] Dr. Mirza Sadler VITAMIN D 25 OHon 06-25-2022 VIT D 25-OH 44.7 ng/mL Normal [facility] Comment on above: Performed By: #### E RUR #### [facility] [address] [place] [address] Dr. Mirza Sadler VIT D RANGES SEE BELOW Normal [facility] Comment on above: Result Comment: <20 ng/mL Vit D deficient 20 - <30 ng/mL Vit D insufficient 30 - 100 ng/mL Vit D sufficient >100 ng/mL Potential Toxicity Performed By: #### E RUR #### [facility] [address] [place] [address] Dr. Mirza Sadler LIPID PROFILEon 06-18-2022 CHOL-HDL RATIO NORM SEE BELOW Normal [facility] Comment on above: Result Comment: 3.3 - 4.4 LOW RISK 4.4 - 7.1 AVERAGE RISK 7.1 - 11.0 MODERATE RISK >11.0 HIGH RISK Performed By: #### H STROPN #### [facility] [address] [address] [address] Mirza Sadler Cholesterol [Mass/Vol] 136 mg/dL Normal <=200 [facility] Comment on above: Performed By: #### H STROPN #### [facility] [address] [address] [address] Mirza Sadler Cholesterol in HDL [Mass/Vol] 38 mg/dL Critically low 40-60 [facility] Comment on above: Performed By: #### H STROPN #### [facility] [address] [address] [address] Mirza Sadler Cholesterol in LDL [Mass/Vol] 69.6 mg/dL Normal [facility] Comment on above: Performed By: #### H STROPN #### [facility] [address] [address] [address] Mirza Sadler Cholesterol.total/Chol esterol in HDL [Mass ratio] 3.6 {ratio} Normal [facility] Comment on above: Performed By: #### H STROPN #### [facility] [address] [address] [address] Mirza Sadler HDL NORMAL > or = 60 mg/dl - LO W CARDIOVASCULAR RISK <40 mg/dl - HIGH CARDIOVASCULAR RISK Normal [facility] Comment on above: Performed By: #### H STROPN #### [facility] [address] [place] [address] Dr. Mirza Sadler LDL CALC NORMAL SEE BELOW Normal [facility] Comment on above: Result Comment: <100 mg/dl OPTIMAL 100 - 129 mg/dl NEAR OR ABOVE OPTIMAL 130 - 159 mg/dl BORDERLINE HIGH 160 - 189 mg/dl HIGH >190 mg/dl VERY HIGH Performed By: #### H STROPN #### [facility] [address] [address] [address] Mirza Sadler Triglyceride [Mass/Vol] 142 mg/dL Normal <=150 [facility] Comment on above: Performed By: #### H STROPN #### [facility] [address] [address] [address] Mirza Sadler VLDL CALC 28.4 mg/dL Normal [facility] Comment on above: Performed By: #### H STROPN #### [facility] [address] [place], [place] [address] CHEST WO CONon [...] by: HIGINIO FLANAGAN Date: 2022-06-05 16:58 Normal [facility] CT CHEST WO CON [employer] Other PROF CHEM 8 (BAS METB)on Anion gap [Moles/Vol] 10.2 mmol/L Normal [facility] Comment on above: Performed By: #### [employer] #### [facility] [address] [place], [place] [address] Dr. Mirza Sadler Calcium [Mass/Vol] 8.9 mg/dL Normal 8.5-10.1 [facility] Comment on above: Performed By: #### B [employer] #### [facility] [address] [place], [place] [address] Dr. Mirza Sadler Chloride [Moles/Vol] 101 mmol/L Normal 98-107 [facility] Comment on above: Performed By: #### [employer] #### [facility] [address] [place] [address] Dr. Mirza Sadler CO2 [Moles/Vol] 31.2 mmol/L Normal 21.0-32.0 [facility] Comment on above: Performed By: #### [employer] #### [facility] [address] [place] [address] Dr. Mirza Sadler Creatinine [Mass/Vol] 1.91 mg/dL Critically high 0.70-1.30 [facility] Comment on above: Performed By: #### [employer] #### [facility] [address] [place] [address] Dr. Mirza Sadler EGFR-AF GUATEMALAN 42 mL/min/1.73m2 Critically low >=60 [facility] Comment on above: Performed By: #### [employer] #### [facility] [address] [place] [address] Dr. Mirza Sadler EGFR-NON AF GUATEMALAN 35 mL/min/1.73m2 Critically low >=60 [facility] Comment on above: Performed By: #### [employer] #### [facility] [address] [place] [address] Dr. Mirza Sadler Glucose [Mass/Vol] 242 mg/dL Critically high 74-106 [facility] Comment on above: Performed By: #### [employer] #### [facility] [address] [place] [address] Dr. Mirza Sadler Potassium [Moles/Vol] 4.4 mmol/L Normal 3.5-5.1 [facility] Comment on above: Performed By: #### [employer] #### [facility] [address] [place] [address] Dr. Mirza Sadler Sodium [Moles/Vol] 138 mmol/L Normal 136-145 [facility] Comment on above: Performed By: #### [employer] #### [facility] [address] [place] [address] Dr. Mirza Sadler Urea nitrogen [Mass/Vol] 33.0 mg/dL Critically high 7.0-18.0 [facility] Comment on above: Performed By: #### [employer] #### [facility] [address] [place] [address] Dr. Mirza Sadler Urea nitrogen/Creatinine [Mass ratio] 17.3 mg/mg Normal [facility] Comment on above: Performed By: #### [employer] #### [facility] [address] [place] [address] Dr. Mirza Sadler PROF CHEM 8 (BAS METB)on Anion gap [Moles/Vol] 10.7 mmol/L Normal [facility] Comment on above: Performed By: #### P T, PTT #### [facility] [address] [place] [address] Dr. Mirza Sadler Calcium [Mass/Vol] 8.9 mg/dL Normal 8.5-10.1 [facility] Comment on above: Performed By: #### P T, PTT #### [facility] [address] [place] [address] Dr. Mirza Sadler Chloride [Moles/Vol] 104 mmol/L Normal 98-107 [facility] Comment on above: Performed By: #### P T, PTT #### [facility] [address] [place] [address] Dr. Mirza Sadler CO2 [Moles/Vol] 29.4 mmol/L Normal 21.0-32.0 [facility] Comment on above: Performed By: #### P T, PTT #### [facility] [address] [place] [address] Dr. Mirza Sadler Creatinine [Mass/Vol] 1.75 mg/dL Critically high 0.70-1.30 [facility] Comment on above: Performed By: #### P T, PTT #### [facility] [address] [place] [address] Dr. Mirza Sadler EGFR-AF GUATEMALAN 47 mL/min/1.73m2 Critically low >=60 [facility] Comment on above: Performed By: #### P T, PTT #### [facility] [address] [place] [address] Dr. Mirza Sadler EGFR-NON AF GUATEMALAN 39 mL/min/1.73m2 Critically low >=60 [facility] Comment on above: Performed By: #### P T, PTT #### [facility] [address] [address] [address] Mirza Sadler Glucose [Mass/Vol] 191 mg/dL Critically high 74-106 [facility] Comment on above: Performed By: #### P T, PTT #### [facility] [address] [address] [address] Mirza Sadler Potassium [Moles/Vol] 4.1 mmol/L Normal 3.5-5.1 [facility] Comment on above: Performed By: #### P T, PTT #### [facility] [address] [address] [address] Mirza Sadler Sodium [Moles/Vol] 140 mmol/L Normal 136-145 [facility] Comment on above: Performed By: #### P T, PTT #### [facility] [address] [address] [address] Mirza Sadler Urea nitrogen [Mass/Vol] 31.0 mg/dL Critically high 7.0-18.0 [facility] Comment on above: Performed By: #### P T, PTT #### [facility] [address] [address] [address] Mirza Sadler Urea nitrogen/Creatinine [Mass ratio] 17.7 mg/mg Normal [facility] Comment on above: Performed By: #### P T, PTT #### [facility] [address] [address] [address] Mirza Sadler XR CHEST 2 Von [...] HIGINIO FLANAGAN Date: 2022-03-22 16:12 Normal [facility] A1C HEMOGLOBINon 03-20-2022 HbA1c (Bld) [Mass fraction] 6.7 % [facility] Other Glucose - FINGER STICKon Glucose [Mass/Vol] 193 mg/dL [facility] Other HbA1c (Bld) [Mass fraction]o n 03-20-2022 A1C HEMOGLOBIN [facility] [employer] Other BNPon 03-13-2022 Natriuretic peptide B (Bld) [Mass/Vol] 4825.0 pg/mL Critically high <=900.0 [facility] Comment on above: Performed By: #### E RUR #### [facility] [address] [place] [address] Dr. Mirza Sadler CBC AUTO DIFFon 03-13-2022 BASO # 0.0 103/ul Normal 0.0-0.1 [facility] Comment on above: Performed By: #### E RUR #### [facility] [address] [place] [address] Dr. Mirza Sadler Basophils/100 WBC (Bld) 0.6 % Normal 0.2-2.0 [facility] Comment on above: Performed By: #### E RUR #### [facility] [address] [place] [address] Dr. Mirza Sadler EO # 0.1 103/ul Normal 0.0-0.7 [facility] Comment on above: Performed By: #### E RUR #### [facility] [address] [place] [address] Dr. Mirza Sadler Eosinophils/100 WBC (Bld) 1.8 % Normal 0.9-7.0 [facility] Comment on above: Performed By: #### E RUR #### [facility] [address] [place] [address] Dr. Mirza Sadler Erythrocyte distribution width (RBC) [Ratio] 14.4 % Normal 11.0-15.0 [facility] Comment on above: Performed By: #### E RUR #### [facility] [address] [place] [address] Dr. Mirza Sadler Hematocrit (Bld) [Volume fraction] 36.1 % Critically low 42.0-54.0 [facility] Comment on above: Performed By: #### E RUR #### [facility] [address] [place] [address] Dr. Mirza Sadler Hemoglobin (Bld) [Mass/Vol] 11.9 g/dL Critically low 14.0-18.0 [facility] Comment on above: Performed By: #### E RUR #### [facility] [address] [place] [address] Dr. Mirza Sadler IG # 0.02 10e3/ul Normal 0.00-0.03 [facility] Comment on above: Performed By: #### E RUR #### [facility] [address] [place] [address] Dr. Mirza Sadler IG % 0.3 % Normal 0.0-0.5 [facility] Comment on above: Performed By: #### E RUR #### [facility] [address] [place] [address] Dr. Mirza Sadler LYMPH # 1.5 103/ul Normal 1.2-3.8 [facility] Comment on above: Performed By: #### E RUR #### [facility] [address] [place] [address] Dr. Mirza Sadler Lymphocytes/100 WBC (Bld) 22.6 % Normal 20.5-60.0 [facility] Comment on above: Performed By: #### E RUR #### [facility] [address] [place] [address] Dr. Mirza Sadler MANUAL DIFF REQ NO Normal [facility] Comment on above: Performed By: #### E RUR #### [facility] [address] [place] [address] Dr. Mirza Sadler MCH (RBC) [Entitic mass] 29.0 pg Normal 25.9-34.0 [facility] Comment on above: Performed By: #### E RUR #### [facility] [address] [place] [address] Dr. Mirza Sadler MCHC (RBC) [Mass/Vol] 33.0 g/dL Normal 29.9-35.2 [facility] Comment on above: Performed By: #### E RUR #### [facility] [address] [place] [address] Dr. Mirza Sadler MCV (RBC) [Entitic vol] 88.0 fL Normal 80.0-94.0 [facility] Comment on above: Performed By: #### E RUR #### [facility] [address] [place] [address] Dr. Mirza Sadler MONO # 0.7 103/ul Normal 0.3-0.8 [facility] Comment on above: Performed By: #### E RUR #### [facility] [address] [place] [address] Dr. Mirza Sadler Monocytes/100 WBC (Bld) 10.2 % Normal 1.7-12.0 [facility] Comment on above: Performed By: #### E RUR #### [facility] [address] [place] [address] Dr. Mirza Sadler NEUT # 4.3 103/ul Normal 1.4-6.5 [facility] Comment on above: Performed By: #### E RUR #### [facility] [address] [place] [address] Dr. Mirza Sadler Neutrophils/100 WBC (Bld) 64.5 % Normal 43.0-75.0 [facility] Comment on above: Performed By: #### E RUR #### [facility] [address] [place] [address] Dr. Mirza Sadler Platelet mean volume (Bld) [Entitic vol] 9.7 fL Normal 9.5-13.5 [facility] Comment on above: Performed By: #### E RUR #### [facility] [address] [address] [address] Mirza Sadler PLT 149 103/ul Critically low 150-450 [facility] Comment on above: Performed By: #### E RUR #### [facility] [address] [address] [address] Mirza Sadler RBC 4.10 106/ul Critically low 4.70-6.[address] [facility] Comment on above: Performed By: #### E RUR #### [facility] [address] [place] [address] Dr. Mirza Sadler WBC 6.6 103/ul Normal 4.0-11.0 [facility] Comment on above: Performed By: #### E RUR #### [facility] [address] [place] [address] Dr. Mirza Sadler PROF CHEM 8 (BAS METB)on Anion gap [Moles/Vol] 14.6 mmol/L Normal [facility] Comment on above: Performed By: #### E RUR #### [facility] [address] [place] [address] Dr. Mirza Sadler Calcium [Mass/Vol] 8.5 mg/dL Normal 8.5-10.1 [facility] Comment on above: Performed By: #### E RUR #### [facility] [address] [place] [address] Dr. Mirza Sadler Chloride [Moles/Vol] 104 mmol/L Normal 98-107 [facility] Comment on above: Performed By: #### E RUR #### [facility] [address] [place] [address] Dr. Mirza Sadler CO2 [Moles/Vol] 22.7 mmol/L Normal 21.0-32.0 [facility] Comment on above: Performed By: #### E RUR #### [facility] [address] [place] [address] Dr. Mirza Sadler Creatinine [Mass/Vol] 1.78 mg/dL Critically high 0.70-1.30 [facility] Comment on above: Performed By: #### E RUR #### [facility] [address] [address] [address] Mirza Sadler EGFR-AF GUATEMALAN 46 mL/min/1.73m2 Critically low >=60 [facility] Comment on above: Performed By: #### E RUR #### [facility] [address] [address] [address] Mirza Sadler EGFR-NON AF GUATEMALAN 38 mL/min/1.73m2 Critically low >=60 [facility] Comment on above: Performed By: #### E RUR #### [facility] [address] [address] [address] Mirza Sadler Glucose [Mass/Vol] 121 mg/dL Critically high 74-106 [facility] Comment on above: Performed By: #### E RUR #### [facility] [address] [address] [address] Mirza Sadler Potassium [Moles/Vol] 3.3 mmol/L Critically low 3.5-5.1 [facility] Comment on above: Performed By: #### E RUR #### [facility] [address] [address] [address] Mirza Sadler Sodium [Moles/Vol] 138 mmol/L Normal 136-145 [facility] Comment on above: Performed By: #### E RUR #### [facility] [address] [address] [address] Mirza Sadler Urea nitrogen [Mass/Vol] 30.0 mg/dL Critically high 7.0-18.0 [facility] Comment on above: Performed By: #### E RUR #### [facility] [address] [address] [address] Mirza Sadler Urea nitrogen/Creatinine [Mass ratio] 16.9 mg/mg Normal [facility] Comment on above: Performed By: #### E RUR #### [facility] [address] [address] [address] Mirza Sadler BNPon 03-12-2022 Natriuretic peptide B (Bld) [Mass/Vol] 7452.0 pg/mL Critically high <=900.0 [facility] Comment on above: Performed By: #### C MP, CMADM #### [facility] [address] [place] [address] Dr. Mirza Sadler CBC AUTO DIFFon 03-12-2022 BASO # 0.0 103/ul Normal 0.0-0.1 [facility] Comment on above: Performed By: #### P T, PTT #### [facility] [address] [place] [address] Dr. Mirza Sadler Basophils/100 WBC (Bld) 0.4 % Normal 0.2-2.0 [facility] Comment on above: Performed By: #### P T, PTT #### [facility] [address] [place] [address] Dr. Mirza Sadler EO # 0.0 103/ul Normal 0.0-0.7 [facility] Comment on above: Performed By: #### P T, PTT #### [facility] [address] [place] [address] Dr. Mirza Sadler Eosinophils/100 WBC (Bld) 0.2 % Critically low 0.9-7.0 [facility] Comment on above: Performed By: #### P T, PTT #### [facility] [address] [place] [address] Dr. Mirza Sadler Erythrocyte distribution width (RBC) [Ratio] 14.6 % Normal 11.0-15.0 [facility] Comment on above: Performed By: #### P T, PTT #### [facility] [address] [place] [address] Dr. Mirza Sadler Hematocrit (Bld) [Volume fraction] 37.8 % Critically low 42.0-54.0 [facility] Comment on above: Performed By: #### P T, PTT #### [facility] [address] [place] [address] Dr. Mirza Sadler Hemoglobin (Bld) [Mass/Vol] 12.2 g/dL Critically low 14.0-18.0 [facility] Comment on above: Performed By: #### P T, PTT #### [facility] [address] [place] [address] Dr. Mirza Sadler IG # 0.03 10e3/ul Normal 0.00-0.03 [facility] Comment on above: Performed By: #### P T, PTT #### [facility] [address] [place] [address] Dr. Mirza Sadler IG % 0.3 % Normal 0.0-0.5 [facility] Comment on above: Performed By: #### P T, PTT #### [facility] [address] [place] [address] Dr. Mirza Sadler LYMPH # 1.2 103/ul Normal 1.2-3.8 [facility] Comment on above: Performed By: #### P T, PTT #### [facility] [address] [place] [address] Dr. Mirza Sadler Lymphocytes/100 WBC (Bld) 11.5 % Critically low 20.5-60.0 [facility] Comment on above: Performed By: #### P T, PTT #### [facility] [address] [place] [address] Dr. Mirza Sadler MANUAL DIFF REQ NO Normal [facility] Comment on above: Performed By: #### P T, PTT #### [facility] [address] [place] [address] Dr. Mirza Sadler MCH (RBC) [Entitic mass] 29.0 pg Normal 25.9-34.0 [facility] Comment on above: Performed By: #### P T, PTT #### [facility] [address] [place] [address] Dr. Mirza Sadler MCHC (RBC) [Mass/Vol] 32.3 g/dL Normal 29.9-35.2 [facility] Comment on above: Performed By: #### P T, PTT #### [facility] [address] [place] [address] Dr. Mirza Sadler MCV (RBC) [Entitic vol] 89.8 fL Normal 80.0-94.0 [facility] Comment on above: Performed By: #### P T, PTT #### [facility] [address] [place] [address] Dr. Mirza Sadler MONO # 0.7 103/ul Normal 0.3-0.8 [facility] Comment on above: Performed By: #### P T, PTT #### [facility] [address] [place] [address] Dr. Mirza Sadler Monocytes/100 WBC (Bld) 6.8 % Normal 1.7-12.0 [facility] Comment on above: Performed By: #### P T, PTT #### [facility] [address] [place] [address] Dr. Mirza Sadler NEUT # 8.5 103/ul Critically high 1.4-6.5 [facility] Comment on above: Performed By: #### P T, PTT #### [facility] [address] [place] [address] Dr. Mirza Sadler Neutrophils/100 WBC (Bld) 80.8 % Critically high 43.0-75.0 [facility] Comment on above: Performed By: #### P T, PTT #### [facility] [address] [place] [address] Dr. Mirza Sadler Platelet mean volume (Bld) [Entitic vol] 9.8 fL Normal 9.5-13.5 [facility] Comment on above: Performed By: #### P T, PTT #### [facility] [address] [place] [address] Dr. Mirza Sadler PLT 165 103/ul Normal 150-450 [facility] Comment on above: Performed By: #### P T, PTT #### [facility] [address] [place] [address] Dr. Mirza Sadler RBC 4.21 106/ul Critically low 4.70-6.10 [facility] Comment on above: Performed By: #### P T, PTT #### [facility] [address] [place] [address] Dr. Mirza Sadler WBC 10.5 103/ul Normal 4.0-11.0 [facility] Comment on above: Performed By: #### P T, PTT #### [facility] [address] [place] [address] Dr. Mirza Sadler ECHOCARDIO M/2D COMPLETEon 1 05-13-2021 ECHOCARDIO M/2D COMPLETE Patient: LANI LIZAMA Exam Date: 03/12/2022 : 1950 Gender:M Ordering : DR OBDULIO ALVA . Admission #: [id number] Family : HARLEY CRESPO D.O. Order #: [id number] CLICK HERE TO VIEW EXAM ECHOCARDIOGRAM REPORT PROCEDURE: CARDIO PULMONARY ECHOCARDIO M/2D COMP INDICATIONS: Elevated TROP and BNPChest pain, recent OH, CHF, CBAG x 5, PTCA x 7 [...] M.D. on 03/13/2022 at 17:42 Normal [facility] PROF CHEM 8 (BAS METB)on Anion gap [Moles/Vol] 17.8 mmol/L Normal [facility] Comment on above: Performed By: #### C TEGAN MARIN #### [facility] [address] [place] [address] Dr. Mirza Sadler Calcium [Mass/Vol] 8.6 mg/dL Normal 8.5-10.1 [facility] Comment on above: Performed By: #### C TEGAN MARIN #### [facility] [address] [place] [address] Dr. Mirza Sadler Chloride [Moles/Vol] 103 mmol/L Normal 98-107 [facility] Comment on above: Performed By: #### C TEGAN MARIN #### [facility] [address] [place] [address] Dr. Mirza Sadler CO2 [Moles/Vol] 22.3 mmol/L Normal 21.0-32.0 [facility] Comment on above: Performed By: #### C TEGAN MARIN #### [facility] [address] [address] [address] Mirza Sadler Creatinine [Mass/Vol] 1.81 mg/dL Critically high 0.70-1.30 [facility] Comment on above: Performed By: #### C MP, CMADM #### [facility] [address] [address] [address] Mirza Sadler EGFR-AF GUATEMALAN 45 mL/min/1.73m2 Critically low >=60 [facility] Comment on above: Performed By: #### C MP, CMADM #### [facility] [address] [address] [address] Mirza Sadler EGFR-NON AF GUATEMALAN 37 mL/min/1.73m2 Critically low >=60 [facility] Comment on above: Performed By: #### C MP, CMADM #### [facility] [address] [address] [address] Mirza Sadler Glucose [Mass/Vol] 161 mg/dL Critically high 74-106 [facility] Comment on above: Performed By: #### C TANIA, CMADM #### [facility] [address] [address] [address] Mirza Sadler Potassium [Moles/Vol] 4.1 mmol/L Normal 3.5-5.1 [facility] Comment on above: Performed By: #### C MP, CMADM #### [facility] [address] [address] [address] Mirza Sadler Sodium [Moles/Vol] 139 mmol/L Normal 136-145 [facility] Comment on above: Performed By: #### C MP, CMADM #### [facility] [address] [address] [address] Mirza Sadler Urea nitrogen [Mass/Vol] 28.0 mg/dL Critically high 7.0-18.0 [facility] Comment on above: Performed By: #### C MP, CMADM #### [facility] [address] [address] [address] Mirza Sadler Urea nitrogen/Creatinine [Mass ratio] 15.5 mg/mg Normal [facility] Comment on above: Performed By: #### C MP, CMADM #### [facility] [address] [place] [address] Dr. Mirza Sadler TROPONIN, HIGH SENSITIVITYon 03-12-2022 HSTROP 44883.5 pg/mL Critically high 4.0-76.1 [facility] Comment on above: Result Comment: CUT- OFF POINTS HAVE BEEN ESTABLISHED BASED ON THE FOURTH UNIVERSAL DEFINITIONS OF MYOCARDIAL INFARCTION. THE UPPER REFERENCE LIMIT (URL) OF TROPONIN, DEFINED THE 99TH PERCENTILE OF cTnI DISTRIBUTION IN A REFERENCE POPULATION, HAS BEEN CONFIRMED THE DECISION THRESHOLD FOR [place] DIAGNOSIS. Performed By: #### C TANIA, CMADM #### [facility] [address] [place] [address] Dr. Mirza Sadler BNPon 03-11-2022 Natriuretic peptide B (Bld) [Mass/Vol] 1378.0 pg/mL Critically high <=900.0 [facility] Comment on above: Performed By: #### P T, PTT #### [facility] [address] [place] [address] Dr. Mirza Sadler CARDIAC PARUL 3-6on 2 CK [Catalytic activity/Vol] 139 U/L Normal 39-308 [facility] Comment on above: Performed By: #### E RUR #### [facility] [address] [place] [address] Dr. Mirza Sadler CK.MB [Mass/Vol] 7.50 ng/mL Critically high <=3.60 [facility] Comment on above: Performed By: #### E RUR #### [facility] [address] [place] [address] Dr. Mirza Sadler HSTROP 1419.3 pg/mL Critically high 4.0-76.1 [facility] Comment on above: Result Comment: CUT- OFF POINTS HAVE BEEN ESTABLISHED BASED ON THE FOURTH UNIVERSAL DEFINITIONS OF MYOCARDIAL INFARCTION. THE UPPER REFERENCE LIMIT (URL) OF TROPONIN, DEFINED THE 99TH PERCENTILE OF cTnI DISTRIBUTION IN A REFERENCE POPULATION, HAS BEEN CONFIRMED THE DECISION THRESHOLD FOR [place] DIAGNOSIS. Performed By: #### E RUR #### [facility] [address] [place] [address] Dr. Mirza Sadler CBC AUTO DIFFon 03-11-2022 BASO # 0.1 103/ul Normal 0.0-0.1 [facility] Comment on above: Performed By: #### E RUR #### [facility] [address] [place] [address] Dr. Mirza Sadler Basophils/100 WBC (Bld) 0.5 % Normal 0.2-2.0 [facility] Comment on above: Performed By: #### E RUR #### [facility] [address] [place] [address] Dr. Mirza Sadler EO # 0.2 103/ul Normal 0.0-0.7 [facility] Comment on above: Performed By: #### E RUR #### [facility] [address] [place] [address] Dr. Mirza Sadler Eosinophils/100 WBC (Bld) 1.3 % Normal 0.9-7.0 [facility] Comment on above: Performed By: #### E RUR #### [facility] [address] [place] [address] Dr. Mirza Sadler Erythrocyte distribution width (RBC) [Ratio] 14.6 % Normal 11.0-15.0 [facility] Comment on above: Performed By: #### E RUR #### [facility] [address] [place] [address] Dr. Mirza Sadler Hematocrit (Bld) [Volume fraction] 43.1 % Normal 42.0-54.0 [facility] Comment on above: Performed By: #### E RUR #### [facility] [address] [place] [address] Dr. Mirza Sadler Hemoglobin (Bld) [Mass/Vol] 14.2 g/dL Normal 14.0-18.0 [facility] Comment on above: Performed By: #### E RUR #### [facility] [address] [place] [address] Dr. Mirza Sadler IG # 0.07 10e3/ul Critically high 0.00-0.03 [facility] Comment on above: Performed By: #### E RUR #### [facility] [address] [place] [address] Dr. Mirza Sadler IG % 0.5 % Normal 0.0-0.5 [facility] Comment on above: Performed By: #### E RUR #### [facility] [address] [place] [address] Dr. Mirza Sadler LYMPH # 1.3 103/ul Normal 1.2-3.8 [facility] Comment on above: Performed By: #### E RUR #### [facility] [address] [place] [address] Dr. Mirza Sadler Lymphocytes/100 WBC (Bld) 8.6 % Critically low 20.5-60.0 [facility] Comment on above: Performed By: #### E RUR #### [facility] [address] [place] [address] Dr. Mirza Sadler MANUAL DIFF REQ NO Normal [facility] Comment on above: Performed By: #### E RUR #### [facility] [address] [place] [address] Dr. Mirza Sadler MCH (RBC) [Entitic mass] 29.3 pg Normal 25.9-34.0 [facility] Comment on above: Performed By: #### E RUR #### [facility] [address] [place] [address] Dr. Mirza Sadler MCHC (RBC) [Mass/Vol] 32.9 g/dL Normal 29.9-35.2 [facility] Comment on above: Performed By: #### E RUR #### [facility] [address] [place] [address] Dr. Mirza Sadler MCV (RBC) [Entitic vol] 88.9 fL Normal 80.0-94.0 [facility] Comment on above: Performed By: #### E RUR #### [facility] [address] [place] [address] Dr. Mirza Sadler MONO # 0.7 103/ul Normal 0.3-0.8 [facility] Comment on above: Performed By: #### E RUR #### [facility] [address] [place], [place] [id number] Dr. Mirza Sadler Monocytes/100 WBC (Bld) 4.3 % Normal 1.7-12.0 [facility] Comment on above: Performed By: #### E RUR #### [facility] [address] [place] [address] Dr. Mirza Sadler NEUT # 12.8 103/ul Critically high 1.4-6.[address] [facility] Comment on above: Performed By: #### E RUR #### [facility] [address] [place] [address] Dr. Mirza Sadler Neutrophils/100 WBC (Bld) 84.8 % Critically high 43.0-75.0 [facility] Comment on above: Performed By: #### E RUR #### [facility] [address] [place] [address] Dr. Mirza Sadler Platelet mean volume (Bld) [Entitic vol] 9.9 fL Normal 9.5-13.5 [facility] Comment on above: Performed By: #### E RUR #### [facility] [address] [place] [address] Dr. Mirza Sadler PLT 201 103/ul Normal 150-450 [facility] Comment on above: Performed By: #### E RUR #### [facility] [address] [place] [address] Dr. Mirza Sadler RBC 4.85 106/ul Normal 4.70-6.10 [facility] Comment on above: Performed By: #### E RUR #### [facility] [address] [place] [address] Dr. Mirza Sadler WBC 15.0 103/ul Critically high 4.0-11.[address] [facility] Comment on above: Performed By: #### E RUR #### [facility] [address] [place] [address] Dr. Mirza Sadler CULTURE BLOODon 03-11-2022 Microscopic examination of blood, culture Culture Observations: NO GROWTH AT 5 DAYS. Normal [facility] Comment on above: Performed By: #### H STROPN #### [facility] [address] [place] [address] Dr. Mirza Sadler Microscopic examination of blood, culture Culture Observations: NO GROWTH AT 5 DAYS. Normal [facility] Comment on above: Performed By: #### H STROPN #### [facility] [address] [place] [address] Dr. Mirza Sadler Covid-19 PCR ([facility])on 03-01 SARS-CoV-2 (COVID-19) RNA RAMO+probe Ql (Unsp spec) Not detected Normal NOT DETECTED [facility] Comment on above: Result [...] for this test is supported by the [place] of Health and Human Service's declaration that [...] used). Performed By: #### H STROPN #### [facility] [address] [place] [address] Dr. Mirza Sadler ER URINE PROFILEon 2 Bilirubin Ql (U) Negative Normal NEGATIVE [facility] Comment on above: Performed By: #### E RUR #### [facility] [address] [place] [address] Dr. Mirza Sadler Clarity (U) CLEAR Normal CLEAR [facility] Comment on above: Performed By: #### E RUR #### [facility] [address] [place] [address] Dr. Mirza Sadler Color (U) LT. YELLOW Normal YELLOW [facility] Comment on above: Performed By: #### E RUR #### [facility] [address] [place] [address] Dr. Mirza BUSTILLO A micrscopic examina tion will be performed if indicated. Normal [facility] Comment on above: Performed By: #### E RUR #### [facility] [address] [place] [address] Dr. Mirza Sadler Glucose Ql (U) >1000 Abnormal NEGATIVE [facility] Comment on above: Performed By: #### E RUR #### [facility] [address] [place] [address] Dr. Mirza Sadler Hemoglobin Ql (U) Negative Normal NEGATIVE The [facility] Comment on above: Performed By: #### E RUR #### [facility] [address] [place] [address] Dr. Mirza Sadler Ketones Ql (U) 15 mg/dl Abnormal NEGATIVE [facility] Comment on above: Performed By: #### E RUR #### [facility] [address] [place] [address] Dr. Mirza Sadler LEUKOCYTES Negative Normal NEGATIVE [facility] Comment on above: Performed By: #### E RUR #### [facility] [address] [place] [address] Dr. Mirza Sadler Nitrite Ql (U) Negative Normal NEGATIVE [facility] Comment on above: Performed By: #### E RUR #### [facility] [address] [place] [address] Dr. Mirza Sadler pH (U) 5.0 [pH] Normal 5-9 [facility] Comment on above: Performed By: #### E RUR #### [facility] [address] [place] [address] Dr. Mirza Sadler SPEC GRAVITY 1.020 Normal 1.005-<=1. 025 [facility] Comment on above: Performed By: #### E RUR #### [facility] [address] [place] [address] Dr. Mirza Sadler UA PROTEIN TRACE Normal NEGATIVE/ TRACE [facility] Comment on above: Performed By: #### E RUR #### [facility] [address] [place] [address] Dr. Mirza Sadler UR MICRO IND NOT INDICATED Normal [facility] Comment on above: Performed By: #### E RUR #### [facility] [address] [address] [address] Mirza Sadler Urobilinogen Qn (U) 0.2 {Luisito'U}/dL Normal 0.2 - 1. 0 [facility] Comment on above: Performed By: #### E RUR #### [facility] [address] [address] [address] Mirza Sadler POINT OF CARE GLUCOSEon 03-01 Glucose [Mass/Vol] 161 mg/dL Critically high 74-106 [facility] Comment on above: Performed By: #### P T, PTT #### [facility] [address] [place] [address] Dr. Mirza Sadler PROF 14(COMP METB)on 022 Albumin [Mass/Vol] 4.3 g/dL Normal 3.4-5.0 [facility] Comment on above: Performed By: #### P T, PTT #### [facility] [address] [address] [address] Mirza Sadler Albumin/Globulin [Mass ratio] 1.1 {ratio} Normal [facility] Comment on above: Performed By: #### P T, PTT #### [facility] [address] [place] [address] Dr. Mirza Sadler ALP [Catalytic activity/Vol] 156 U/L Critically high 46-116 [facility] Comment on above: Performed By: #### P T, PTT #### [facility] [address] [address] [address] Mirza Sadler ALT [Catalytic activity/Vol] 24 U/L Normal 16-63 [facility] Comment on above: Performed By: #### P T, PTT #### [facility] [address] [address] [address] Mirza Sadler Anion gap [Moles/Vol] 16.7 mmol/L Normal [facility] Comment on above: Performed By: #### P T, PTT #### [facility] [address] [address] [address] Mirza Sadler AST [Catalytic activity/Vol] 21 U/L Normal 15-37 [facility] Comment on above: Performed By: #### P T, PTT #### [facility] [address] [address] [address] Mirza Sadler Bilirubin [Mass/Vol] 1.1 mg/dL Critically high 0.2-1.0 [facility] Comment on above: Performed By: #### P T, PTT #### [facility] [address] [address] [address] Mirza Sadler Calcium [Mass/Vol] 8.8 mg/dL Normal 8.5-10.1 [facility] Comment on above: Performed By: #### P T, PTT #### [facility] [address] [place] [address] Dr. Mirza Sadler Chloride [Moles/Vol] 105 mmol/L Normal 98-107 [facility] Comment on above: Performed By: #### P T, PTT #### [facility] [address] [address] [address] Mirza Sadler CO2 [Moles/Vol] 25.0 mmol/L Normal 21.0-32.0 [facility] Comment on above: Performed By: #### P T, PTT #### [facility] [address] [address] [address] Mirza Sadler Creatinine [Mass/Vol] 1.57 mg/dL Critically high 0.70-1.30 [facility] Comment on above: Performed By: #### P T, PTT #### [facility] [address] [address] [address] Mirza Sadler EGFR-AF GUATEMALAN 53 mL/min/1.73m2 Critically low >=60 [facility] Comment on above: Performed By: #### P T, PTT #### [facility] [address] [place] [address] Dr. Mirza Sadler EGFR-NON AF GUATEMALAN 44 mL/min/1.73m2 Critically low >=60 [facility] Comment on above: Performed By: #### P T, PTT #### [facility] [address] [address] [address] Mirza Sadler Globulin (S) [Mass/Vol] 3.9 g/dL Normal [facility] Comment on above: Performed By: #### P T, PTT #### [facility] [address] [address] [address] Mirza Sadler Glucose [Mass/Vol] 188 mg/dL Critically high 74-106 [facility] Comment on above: Performed By: #### P T, PTT #### [facility] [address] [address] [address] Mirza Sadler Potassium [Moles/Vol] 3.7 mmol/L Normal 3.5-5.1 [facility] Comment on above: Performed By: #### P T, PTT #### [facility] [address] [place] [address] Dr. Mirza Sadler Protein [Mass/Vol] 8.2 g/dL Normal 6.4-8.2 [facility] Comment on above: Performed By: #### P T, PTT #### [facility] [address] [address] [address] Mirza Sadler Sodium [Moles/Vol] 143 mmol/L Normal 136-145 [facility] Comment on above: Performed By: #### P T, PTT #### [facility] [address] [address] [address] Mirza Sadler Urea nitrogen [Mass/Vol] 20.0 mg/dL Critically high 7.0-18.0 [facility] Comment on above: Performed By: #### P T, PTT #### [facility] [address] [address] [address] Mirza Sadler Urea nitrogen/Creatinine [Mass ratio] 12.7 mg/mg Normal [facility] Comment on above: Performed By: #### P T, PTT #### [facility] [address] [address] [address] Mirza Sadler RESPIRATORY PANEL PLUSon Adenovirus Not detected Normal NOT DETECTED [facility] Comment on above: Performed By: #### P T, PTT #### [facility] [address] [place] [address] Dr. Mirza Ball Parapertusis Not detected Normal NOT DETECTED [facility] Comment on above: Performed By: #### P T, PTT #### [facility] [address] [place] [address] Dr. Mirza Ball Pertussis Not detected Normal NOT DETECTED [facility] Comment on above: Performed By: #### P T, PTT #### [facility] [address] [place] [address] Dr. Mirza Sadler Chlamydia Pneumoniae Not detected Normal NOT DETECTED [facility] Comment on above: Performed By: #### P T, PTT #### [facility] [address] [place] [address] Dr. Mirza Sadler Coronavirus 229E Not detected Normal NOT DETECTED [facility] Comment on above: Performed By: #### P T, PTT #### [facility] [address] [place] [address] Dr. Mirza Sadler Coronavirus HKU1 Not detected Normal NOT DETECTED [facility] Comment on above: Performed By: #### P T, PTT #### [facility] [address] [place] [address] Dr. Mirza Sadler Coronavirus NL63 Not detected Normal NOT DETECTED [facility] Comment on above: Performed By: #### P T, PTT #### [facility] [address] [place] [address] Dr. Mirza Sadler Coronavirus OC43 Not detected Normal NOT DETECTED [facility] Comment on above: Performed By: #### P T, PTT #### [facility] [address] [place] [address] Dr. Mirza Sadler Influenza A H1 2009 Not detected Normal NOT DETECTED [facility] Comment on above: Performed By: #### P T, PTT #### [facility] [address] [place] [address] Dr. Mirza Sadler Influenza A H3 Not detected Normal NOT DETECTED [facility] Comment on above: Performed By: #### P T, PTT #### [facility] [address] [place] [address] Dr. Mirza Sadler Influenza B Not detected Normal NOT DETECTED [facility] Comment on above: Performed By: #### P T, PTT #### [facility] [address] [place] [address] Dr. Mirza Sadler Metapneumovirus Not detected Normal NOT DETECTED [facility] Comment on above: Performed By: #### P T, PTT #### [facility] [address] [place] [address] Dr. Mirza Sadler Mycoplas. Pneumoniae Not detected Normal NOT DETECTED [facility] Comment on above: Performed By: #### P T, PTT #### [facility] [address] [place] [address] Dr. Mirza Sadler Parainfluenza 1 Not detected Normal NOT DETECTED [facility] Comment on above: Performed By: #### P T, PTT #### [facility] [address] [place] [address] Dr. Mirza Sadler Parainfluenza 2 Not detected Normal NOT DETECTED [facility] Comment on above: Performed By: #### P T, PTT #### [facility] [address] [place] [address] Dr. Mirza Sadler Parainfluenza 3 Not detected Normal NOT DETECTED [facility] Comment on above: Performed By: #### P T, PTT #### [facility] [address] [place] [address] Dr. Mirza Sadler Parainfluenza 4 Not detected Normal NOT DETECTED [facility] Comment on above: Performed By: #### P T, PTT #### [facility] [address] [place] [address] Dr. Mirza Sadler Rhino/Enterovirus Not detected Normal NOT DETECTED [facility] Comment on above: Performed By: #### P T, PTT #### [facility] [address] [place] [address] Dr. Mirza Sadler RP2 Header 1 RESPIRATORY PANEL: VIRUSES Normal [facility] Comment on above: Performed By: #### P T, PTT #### [facility] [address] [place] [address] Dr. Mirza Sadler RP2 Header 2 RESPIRATORY PANEL: BACTERIA Normal [facility] Comment on above: Performed By: #### P T, PTT #### [facility] [address] [place] [address] Dr. Mirza Sadler RSV Not detected Normal NOT DETECTED [facility] Comment on above: Performed By: #### P T, PTT #### [facility] [address] [place] [address] Dr. Mirza Sadler SARS-CoV-2 (COVID-19) RNA RAMO+probe Ql (Unsp spec) Not detected Normal NOT DETECTED [facility] Comment on above: Performed By: #### P T, PTT #### [facility] [address] [place] [address] Dr. Mirza Sadler TROPONIN, HIGH SENSITIVITYon 03-11-2022 HSTROP 87754.8 pg/mL Critically high 4.0-76.1 [facility] Comment on above: Result Comment: CUT- OFF POINTS HAVE BEEN ESTABLISHED BASED ON THE FOURTH UNIVERSAL DEFINITIONS OF MYOCARDIAL INFARCTION. THE UPPER REFERENCE LIMIT (URL) OF TROPONIN, DEFINED THE 99TH PERCENTILE OF cTnI DISTRIBUTION IN A REFERENCE POPULATION, HAS BEEN CONFIRMED THE DECISION THRESHOLD FOR [place] DIAGNOSIS. Performed By: #### C MP, CMADM #### [facility] [address] [place] [address] Dr. Mirza Sadler HSTROP 41.0 pg/mL Normal 4.0-76.1 [facility] Comment on above: Result Comment: CUT- OFF POINTS HAVE BEEN ESTABLISHED BASED ON THE FOURTH UNIVERSAL DEFINITIONS OF MYOCARDIAL INFARCTION. THE UPPER REFERENCE LIMIT (URL) OF TROPONIN, DEFINED THE 99TH PERCENTILE OF cTnI DISTRIBUTION IN A REFERENCE POPULATION, HAS BEEN CONFIRMED THE DECISION THRESHOLD FOR [place] DIAGNOSIS. Performed By: #### P T, PTT #### [facility] [address] [place] [address] Dr. Mirza Sadler XR CHEST 1 Von [...] by: Kayden ACEVES Date: 2022-03-11 05:42 Normal [facility] NM MUGAon 03-09-2022 NM MUGA [...] by: SHANNON LANDIS Date: 2022-03-09 12:26 Normal [facility] CT CHEST WO CONon 03-02-2022 [...] HIGINIO FLANAGAN Date: 2022-03-02 08:52 Normal [facility] Creatinine and Glomerular fi ltration rate.predicted panel (S/P/Bld)Ordered By: Gagan Shahid on 01-17-2022 Creatinine [Mass/Vol] 1.53 mg/dL 0.64-1.27 [facility] Estimated glomerular filtrat ion rate (GFR) non- AmericanOrdered By: Gagan Shahid on 01-17-2022 GFR/1.73 sq M.predicted among non-blacks MDRD (S/P/Bld) [Vol rate/Area] 45 mL/Min [facility] Glucose Glucometer (BldC) [M ass/Vol]Ordered By: Gagan Shahid on 01-17-2022 Glucose [Mass/Vol] 178 mg/dL [facility] Comment on above: Random Glucose Refer ence Range is dependent on time and content of last meal. Glucose of more than 200 mg/dL in a nonstressed, ambulatory subject supports the diagnosis of Diabetes Mellitus. No Panel InformationOrdered By: Gagan Shahid on 01-17-2022 Estimated GFR () 55 mL/Min [facility] Comment on above: GFR estimated refere nce range: According to KDOQI guidelines, <60 ml/min/1.73m2 is sufficient to diagnose a patient with chronic kidney disease. Pharmacy Creatinine Clearance (Chem 42.00 [facility] Serum or plasma anion gap de terminationOrdered By: Gagan Shahid on 01-17-2022 Anion gap [Moles/Vol] 12.0 mmol/L 6.0-15.0 [facility] Serum or plasma calcium radha urement (mass/volume)Ordered By: Gagan Shahid on 01-17-2022 Calcium [Mass/Vol] 9.0 mg/dL 8.2-10.2 [facility] Serum or plasma chloride shanae surement (moles/volume)Ordered By: Gagan Shahid on 01-17-2022 Chloride [Moles/Vol] 107 mmol/L 95-114 [facility] Serum or plasma glucose radha urement (mass/volume)Ordered By: Gagan Shahid on 01-17-2022 Glucose [Mass/Vol] 142 mg/dL 70-100 [facility] Comment on above: ADA recommended refe rence rangeRandom Glucose Reference Range is dependent on time and content of last meal. Glucose of more than 200 mg/dL in a nonstressed, ambulatory subject supports the diagnosis of Diabetes Mellitus. Serum or plasma potassium me asurement (moles/volume)Ordered By: Gagan Shahid on 01-17-2022 Potassium [Moles/Vol] 3.5 mmol/L 3.5-5.1 [facility] Serum or plasma sodium measu rement (moles/volume)Ordered By: Gagan Shahid on 01-17-2022 Sodium [Moles/Vol] 137 mmol/L 136-146 [facility] Serum or plasma total carbon dioxide measurement (moles/volume)Ordered By: Gagan Shahid on 01-17-2022 CO2 [Moles/Vol] 21.5 mmol/L 22.0-30.0 [facility] Serum or plasma urea nitroge n measurement (mass/volume)Ordered By: Gagan Shahid on 01-17-2022 Urea nitrogen [Mass/Vol] 24 mg/dL 9-23 [facility] Activated partial thrombopla stin time (aPTT) in platelet poor plasma by coagulation aOrdered By: Gagan Shahid on 01-16-2022 aPTT Coag (PPP) [Time] 42.1 s 25.1-36.5 [facility] Basophils Auto (Bld) [#/Vol] Ordered By: Gagan Shahid on 01-16-2022 Basophils (Bld) [#/Vol] 0.0 10*3/uL 0.0-0.2 [facility] Basophils/100 WBC Auto (Bld) Ordered By: Gagan Shahid on 01-16-2022 Basophils/100 WBC (Bld) 0.5 % . [facility] Creatine kinase [Enzymatic a ctivity/volume] in Serum or PlasmaOrdered By: Gagan Shahid on 01-16-2022 CK [Catalytic activity/Vol] 92 U/L 22-269 [facility] Eosinophils Auto (Bld) [#/Vo l]Ordered By: Gagan Shahid on 01-16-2022 Eosinophils (Bld) [#/Vol] 0.2 10*3/uL 0.0-0.45 [facility] Eosinophils/100 WBC Auto (Bl d)Ordered By: Gagan Shahid on 01-16-2022 Eosinophils/100 WBC (Bld) 2.4 % . [facility] Erythrocyte distribution wid th Auto (RBC) [Ratio]Ordered By: Gagan Shahid on 01-16-2022 Erythrocyte distribution width (RBC) [Ratio] 14.6 % 12.0-14.8 [facility] Hematocrit Auto (Bld) [Volum e fraction]Ordered By: Gagan Shahid on 01-16-2022 Hematocrit (Bld) [Volume fraction] 43.4 % 38.8-50.0 [facility] Hemoglobin [Mass/volume] in BloodOrdered By: Gagan Shahid on 01-16-2022 Hemoglobin (Bld) [Mass/Vol] 14.4 g/dL 13.0-17.0 [facility] Laboratory - Chemistry and C hemistry - challengeOrdered By: Gagan Shahid on 01-16-2022 Magnesium [Mass/Vol] 1.9 mg/dL 1.6-2.6 [facility] - CoagulationOrde red By: Gagan Shahid on 01-16-2022 PT Coag (PPP) [Time] 15.7 s 9.0-12.9 [facility] - Hematology and Cell countsOrdered By: Gagan Shahid on 01-16-2022 Nucleated RBC/100 WBC (Bld) [Ratio] 0.1 % 0-0.5 [facility] Leukocytes [#/volume] in Blo od by Automated countOrdered By: Gagan Shahid on 01-16-2022 WBC (Bld) [#/Vol] 8.2 10*3/uL 4.5-11.0 [facility] Lymphocytes Auto (Bld) [#/Vo l]Ordered By: Gagan Shahid on 01-16-2022 Lymphocytes (Bld) [#/Vol] 1.6 10*3/uL 1.00-4.8 [facility] Lymphocytes/100 WBC Auto (Bl d)Ordered By: Gagan Shahid on 01-16-2022 Lymphocytes/100 WBC (Bld) 19.5 % . [facility] MCH Auto (RBC) [Entitic mass ]Ordered By: Gagan Shahid on 01-16-2022 MCH (RBC) [Entitic mass] 29.4 pg 27.5-35.2 [facility] MCHC Auto (RBC) [Mass/Vol]Or dered By: Gagan Shahid on 01-16-2022 MCHC (RBC) [Mass/Vol] 33.2 g/dL 32.5-35.6 [facility] MCV Auto (RBC) [Entitic vol] Ordered By: Gagan Shahid on 01-16-2022 MCV (RBC) [Entitic vol] 88.5 fL 83.5-101 [facility] Monocytes Auto (Bld) [#/Vol] Ordered By: Gagan Shahid on 01-16-2022 Monocytes (Bld) [#/Vol] 0.8 10*3/uL 0.0-0.8 [facility] Monocytes/100 WBC Auto (Bld) Ordered By: Gagan Shahid on 01-16-2022 Monocytes/100 WBC (Bld) 9.1 % . [facility] Neutrophils Auto (Bld) [#/Vo l]Ordered By: Gagan Shahid on 01-16-2022 Neutrophils (Bld) [#/Vol] 5.6 10*3/uL 1.8-7.7 [facility] Neutrophils/100 WBC Auto (Bl d)Ordered By: Gagan Shahid on 01-16-2022 Neutrophils/100 WBC (Bld) 68.5 % . [facility] No Panel InformationOrdered By: Gagan Shahid on 01-16-2022 Bedside Glucose Comment Glu2: cleaned meter [facility] Platelet mean volume Auto (B ld) [Entitic vol]Ordered By: Gagan Shahid on 01-16-2022 Platelet mean volume (Bld) [Entitic vol] 8.4 fL 6.6-10.1 [facility] Platelet poor plasma interna tional normalized ratio (INR) by coagulation assay (relatOrdered By: Gagan Shahid on 01-16-2022 INR Coag (PPP) [Relative time] 1.4 {INR} [facility] Comment on above: INR Therapeutic [...] 01-16-2022 Platelets (Bld) [#/Vol] 178 10*3/uL 150-450 [facility] RBC Auto (Bld) [#/Vol]Ordere d By: Gagan Shahid on 01-16-2022 RBC (Bld) [#/Vol] 4.90 10*6/uL 3.90-5.60 [facility] Serum or plasma creatine kin ase MB (CKMB)/total creatine kinase (CK) ratio by calculaOrdered By: Gagan Shahid on 01-16-2022 CK.MB Calc [Catalytic fraction] 3.2 % 0.00-2.50 [facility] Serum or plasma creatine kin ase MB measurement (mass/volume)Ordered By: Gagan Shahid on 01-16-2022 CK.MB [Mass/Vol] 3.0 ng/mL 0.6-6.3 [facility] Troponin I.cardiac [Mass/vol ume] in Serum or Plasma by High sensitivity methodOrdered By: Gagan Shahid on 01-16-2022 Troponin I.cardiac High sensitivity method [Mass/Vol] 525 pg/mL 0-20 [facility] Comment on above: Critical valueresult calledat 1844 on 01/16/22 BNPon 01-15-2022 Natriuretic peptide B (Bld) [Mass/Vol] 1012.0 pg/mL Critically high <=900.0 [facility] Comment on above: Performed By: #### B [employer] #### [facility] [address] [place] [address] Dr. Mirza Sadler CARDIAC PARUL ADMITon 022 CK [Catalytic activity/Vol] 93 U/L Normal 39-308 [facility] Comment on above: Performed By: #### C TANIA, CMADM #### [facility] [address] [place] [address] Dr. Mirza Sadler CK.MB [Mass/Vol] 1.67 ng/mL Normal <=3.[address] [facility] Comment on above: Performed By: #### C TANIA, CMADM #### [facility] [address] [place] [address] Dr. Mirza Sadler HSTROP 17.1 pg/mL Normal 4.0-76.1 [facility] Comment on above: Result Comment: CUT- OFF POINTS HAVE BEEN ESTABLISHED BASED ON THE FOURTH UNIVERSAL DEFINITIONS OF MYOCARDIAL INFARCTION. THE UPPER REFERENCE LIMIT (URL) OF TROPONIN, DEFINED THE 99TH PERCENTILE OF cTnI DISTRIBUTION IN A REFERENCE POPULATION, HAS BEEN CONFIRMED THE DECISION THRESHOLD FOR [place] DIAGNOSIS. Performed By: #### C TANIA, CMADM #### [facility] [address] [place] [address] Dr. Mirza Sadler RACHEL 63 ng/mL Normal 16-96 [facility] Comment on above: Performed By: #### C TANIA, CMADM #### [facility] [address] [place] [address] Dr. Mirza Sadler CBC AUTO DIFFon 01-15-2022 BASO # 0.1 103/ul Normal 0.0-0.1 [facility] Comment on above: Performed By: #### E RUR #### [facility] [address] [place] [address] Dr. Mirza Sadler Basophils/100 WBC (Bld) 0.9 % Normal 0.2-2.0 [facility] Comment on above: Performed By: #### E RUR #### [facility] [address] [place] [address] Dr. Mirza Sadler EO # 0.3 103/ul Normal 0.0-0.7 [facility] Comment on above: Performed By: #### E RUR #### [facility] [address] [place] [address] Dr. Mirza Sadler Eosinophils/100 WBC (Bld) 3.1 % Normal 0.9-7.0 [facility] Comment on above: Performed By: #### E RUR #### [facility] [address] [place] [address] Dr. Mirza Sadler Erythrocyte distribution width (RBC) [Ratio] 14.2 % Normal 11.0-15.0 [facility] Comment on above: Performed By: #### E RUR #### [facility] [address] [place] [address] Dr. Mirza Sadler Hematocrit (Bld) [Volume fraction] 44.4 % Normal 42.0-54.0 [facility] Comment on above: Performed By: #### E RUR #### [facility] [address] [place] [address] Dr. Mirza Sadler Hemoglobin (Bld) [Mass/Vol] 14.4 g/dL Normal 14.0-18.0 [facility] Comment on above: Performed By: #### E RUR #### [facility] [address] [place] [address] Dr. Mirza Sadler IG # 0.03 10e3/ul Normal 0.00-0.03 [facility] Comment on above: Performed By: #### E RUR #### [facility] [address] [place] [address] Dr. Mirza Sadler IG % 0.3 % Normal 0.0-0.5 [facility] Comment on above: Performed By: #### E RUR #### [facility] [address] [place] [address] Dr. Mirza Sadler LYMPH # 1.6 103/ul Normal 1.2-3.8 [facility] Comment on above: Performed By: #### E RUR #### [facility] [address] [address] [address] Mirza Sadler Lymphocytes/100 WBC (Bld) 16.8 % Critically low 20.5-60.0 [facility] Comment on above: Performed By: #### E RUR #### [facility] [address] [place] [address] Dr. Mirza Sadler MANUAL DIFF REQ NO Normal [facility] Comment on above: Performed By: #### E RUR #### [facility] [address] [place] [address] Dr. Mirza Sadler MCH (RBC) [Entitic mass] 29.4 pg Normal 25.9-34.0 [facility] Comment on above: Performed By: #### E RUR #### [facility] [address] [place] [address] Dr. Mirza Sadler MCHC (RBC) [Mass/Vol] 32.4 g/dL Normal 29.9-35.2 [facility] Comment on above: Performed By: #### E RUR #### [facility] [address] [place] [address] Dr. Mirza Sadler MCV (RBC) [Entitic vol] 90.6 fL Normal 80.0-94.0 [facility] Comment on above: Performed By: #### E RUR #### [facility] [address] [place] [address] Dr. Mirza Sadler MONO # 0.5 103/ul Normal 0.3-0.8 [facility] Comment on above: Performed By: #### E RUR #### [facility] [address] [place] [address] Dr. Mirza Sadler Monocytes/100 WBC (Bld) 5.9 % Normal 1.7-12.0 [facility] Comment on above: Performed By: #### E RUR #### [facility] [address] [place] [address] Dr. Mirza Sadler NEUT # 6.7 103/ul Critically high 1.4-6.[address] [facility] Comment on above: Performed By: #### E RUR #### [facility] [address] [address] [address] Mirza Sadler Neutrophils/100 WBC (Bld) 73.0 % Normal 43.0-75.0 [facility] Comment on above: Performed By: #### E RUR #### [facility] [address] [address] [address] Mirza Sadler Platelet mean volume (Bld) [Entitic vol] 10.0 fL Normal 9.5-13.5 [facility] Comment on above: Performed By: #### E RUR #### [facility] [address] [address] [address] Mirza Sadler PLT 190 103/ul Normal 150-450 [facility] Comment on above: Performed By: #### E RUR #### [facility] [address] [place] [address] Dr. Mirza Sadler RBC 4.90 106/ul Normal 4.70-6.10 [facility] Comment on above: Performed By: #### E RUR #### [facility] [address] [place] [address] Dr. Mirza Sadler WBC 9.2 103/ul Normal 4.0-11.0 [facility] Comment on above: Performed By: #### E RUR #### [facility] [address] [place] [address] CHEST WO CONon [...] HIGINIO FLANAGAN Date: 2022-01-15 08:19 Normal [facility] CULTURE BLOODon 01-15-2022 Microscopic examination of blood, culture Culture Observations: NO GROWTH AT 5 DAYS. Normal [facility] Comment on above: Performed By: #### H STROPN #### [facility] [address] [place] [address] Dr. Mirza Sadler Microscopic examination of blood, culture Culture Observations: NO GROWTH AT 5 DAYS. Normal [facility] Comment on above: Performed By: #### B [id number] #### [facility] [address] [place] [address] Dr. Mirza Sadler Covid-19 PCR (CVDTB)on 12-30 SARS-CoV-2 (COVID-19) RNA RAMO+probe Ql (Unsp spec) Not detected Normal NOT DETECTED [facility] Comment on above: Result [...] for this test is supported by the [place] of Health and Human Service's declaration that [...] longer be used). Performed By: #### B [employer] #### [facility] [address] [place] [address] Dr. Mirza Sadler ER URINE PROFILEon 2 Bilirubin Ql (U) Negative Normal NEGATIVE [facility] Comment on above: Performed By: #### C TANIA, CMADM #### [facility] [address] [place] [address] Dr. Mirza Sadler Clarity (U) CLEAR Normal CLEAR [facility] Comment on above: Performed By: #### C TANIA, CMADM #### [facility] [address] [place] [address] Dr. Mirza Sadler Color (U) LT. YELLOW Normal YELLOW [facility] Comment on above: Performed By: #### C TANIA, CMADM #### [facility] [address] [place] [address] Dr. Mirza Sadler ERUAHD A micrscopic examina tion will be performed if indicated. Normal [facility] Comment on above: Performed By: #### C TANIA, CMADM #### [facility] [address] [place] [address] Dr. Mirza Sadler Glucose Ql (U) >1000 Abnormal NEGATIVE [facility] Comment on above: Performed By: #### C TANIA, CMADM #### [facility] [address] [place] [address] Dr. Mirza Sadler Hemoglobin Ql (U) Negative Normal NEGATIVE The [facility] Comment on above: Performed By: #### C TANIA, CMADM #### [facility] [address] [place] [address] Dr. Mirza Sadler Ketones Ql (U) TRACE Abnormal NEGATIVE [facility] Comment on above: Performed By: #### C TANIA, CMADM #### [facility] [address] [place] [address] Dr. Mirza Salder LEUKOCYTES Negative Normal NEGATIVE [facility] Comment on above: Performed By: #### C TANIA, CMADM #### [facility] [address] [place] [address] Dr. Mirza Sadler Nitrite Ql (U) Negative Normal NEGATIVE [facility] Comment on above: Performed By: #### C TANIA, CMADM #### [facility] [address] [place] [address] Dr. Mirza Sadler pH (U) 5.5 [pH] Normal 5-9 [facility] Comment on above: Performed By: #### C TANIA, CMADM #### [facility] [address] [place] [address] Dr. Mirza Sadler SPEC GRAVITY 1.020 Normal 1.005-<=1. 025 [facility] Comment on above: Performed By: #### C TANIA, CMADM #### [facility] [address] [place] [address] Dr. Mirza Sadler UA PROTEIN TRACE Normal NEGATIVE/ TRACE [facility] Comment on above: Performed By: #### C TANIA, CMADM #### [facility] [address] [place] [address] Dr. Mirza Sadler UR MICRO IND NOT INDICATED Normal [facility] Comment on above: Performed By: #### C TANIA, CMADM #### [facility] [address] [place] [address] Dr. Mirza Sadler Urobilinogen Qn (U) 0.2 {Luisito'U}/dL Normal 0.2 - 1. 0 [facility] Comment on above: Performed By: #### C TANIA, CMADM #### [facility] [address] [place] [address] Dr. Mirza Sadler LACTATE/LACTIC ACIDon 2021 Lactate [Moles/Vol] 0.8 mmol/L Normal 0.4-1.9 [facility] Comment on above: Performed By: #### P T, PTT #### [facility] [address] [address] [address] Mirza Sadler PROF 14(COMP METB)on 022 Albumin [Mass/Vol] 4.4 g/dL Normal 3.4-5.0 [facility] Comment on above: Performed By: #### C MP, CMADM #### [facility] [address] [place] [address] Dr. Mirza Sadler Albumin/Globulin [Mass ratio] 1.3 {ratio} Normal [facility] Comment on above: Performed By: #### C MP, CMADM #### [facility] [address] [place] [address] Dr. Mirza Sadler ALP [Catalytic activity/Vol] 155 U/L Critically high 46-116 [facility] Comment on above: Performed By: #### C MP, CMADM #### [facility] [address] [place] [address] Dr. Mirza Sadler ALT [Catalytic activity/Vol] 27 U/L Normal 16-63 [facility] Comment on above: Performed By: #### C MP, CMADM #### [facility] [address] [place] [address] Dr. Mirza Sadler Anion gap [Moles/Vol] 14.9 mmol/L Normal [facility] Comment on above: Performed By: #### C MP, CMADM #### [facility] [address] [address] [address] Mirza Sadler AST [Catalytic activity/Vol] 22 U/L Normal 15-37 [facility] Comment on above: Performed By: #### C MP, CMADM #### [facility] [address] [address] [address] Mirza Sadler Bilirubin [Mass/Vol] 0.8 mg/dL Normal 0.2-1.0 [facility] Comment on above: Performed By: #### C MP, CMADM #### [facility] [address] [address] [address] Mirza Sadler Calcium [Mass/Vol] 8.8 mg/dL Normal 8.5-10.1 [facility] Comment on above: Performed By: #### C TANIA, CMADM #### [facility] [address] [place] [address] Dr. Mirza Sadler Chloride [Moles/Vol] 106 mmol/L Normal 98-107 [facility] Comment on above: Performed By: #### C TANIA, CMADM #### [facility] [address] [place] [address] Dr. Mirza Sadler CO2 [Moles/Vol] 23.9 mmol/L Normal 21.0-32.0 [facility] Comment on above: Performed By: #### C TANIA, CMADM #### [facility] [address] [place] [address] Dr. Mirza Sadler Creatinine [Mass/Vol] 1.51 mg/dL Critically high 0.70-1.30 [facility] Comment on above: Performed By: #### C TANIA, CMADM #### [facility] [address] [place] [address] Dr. Mirza Sadler EGFR-AF GUATEMALAN 56 mL/min/1.73m2 Critically low >=60 [facility] Comment on above: Performed By: #### C TANIA, CMADM #### [facility] [address] [place] [address] Dr. Mirza Sadler EGFR-NON AF GUATEMALAN 46 mL/min/1.73m2 Critically low >=60 [facility] Comment on above: Performed By: #### C TANIA, CMADM #### [facility] [address] [place] [address] Dr. Mirza Sadler Globulin (S) [Mass/Vol] 3.4 g/dL Normal [facility] Comment on above: Performed By: #### C TANIA, CMADM #### [facility] [address] [place] [address] Dr. Mirza Sadler Glucose [Mass/Vol] 189 mg/dL Critically high 74-106 [facility] Comment on above: Performed By: #### C TANIA, CMADM #### [facility] [address] [place] [address] Dr. Mirza Sadler Potassium [Moles/Vol] 3.8 mmol/L Normal 3.5-5.1 [facility] Comment on above: Performed By: #### C TANIA, CMADM #### [facility] [address] [place] [address] Dr. Mirza Sadler Protein [Mass/Vol] 7.8 g/dL Normal 6.4-8.2 [facility] Comment on above: Performed By: #### C TANIA, CMADM #### [facility] [address] [place] [address] Dr. Mirza Sadler Sodium [Moles/Vol] 141 mmol/L Normal 136-145 [facility] Comment on above: Performed By: #### C TANIA, CMADM #### [facility] [address] [place] [address] Dr. Mirza Sadler Urea nitrogen [Mass/Vol] 22.0 mg/dL Critically high 7.0-18.0 [facility] Comment on above: Performed By: #### C TANIA, CMADM #### [facility] [address] [place] [address] Dr. Mirza Sadler Urea nitrogen/Creatinine [Mass ratio] 14.6 mg/mg Normal [facility] Comment on above: Performed By: #### C TANIA, CMADM #### [facility] [address] [place] [address] Dr. Mirza Sadler PROTIMEon 01-15-2022 INR Coag (PPP) [Relative time] 1.10 {INR} Normal [facility] Comment on above: Performed By: #### E RUR #### [facility] [address] [place] [address] Dr. Mirza Sadler INR GUIDELINES SEE BELOW Normal [facility] Comment on above: Result Comment: RIVKA RED INR: 2.0 - 3.0 CONDITIONS NOT LISTED BELOW 2.5 - 3.5 FOR PROSTHETIC HEART VALVE REPLACEMENT 2.5 - 3.5 RECURRENT THROMBOSIS Performed By: #### E RUR #### [facility] [address] [place] [address] Dr. Mirza Sadler PT Coag (PPP) [Time] 11.8 s Critically high 9.0-11.6 [facility] Comment on above: Performed By: #### E RUR #### [facility] [id number] Mirza Sadler PTTon 01-15-2022 aPTT Coag (Bld) [Time] 29.0 s Normal 22.3-36.2 [facility] Comment on above: Performed By: #### E RUR #### [facility] [address] [address] [address] Mirza Sadler TROPONIN, HIGH SENSITIVITYon 01-15-2022 HSTROP 1786.2 pg/mL Critically high 4.0-76.1 [facility] Comment on above: Result Comment: CUT- OFF POINTS HAVE BEEN ESTABLISHED BASED ON THE FOURTH UNIVERSAL DEFINITIONS OF MYOCARDIAL INFARCTION. THE UPPER REFERENCE LIMIT (URL) OF TROPONIN, DEFINED THE 99TH PERCENTILE OF cTnI DISTRIBUTION IN A REFERENCE POPULATION, HAS BEEN CONFIRMED THE DECISION THRESHOLD FOR [place] DIAGNOSIS. Performed By: #### H STROPN #### [facility] [address] [place] [address] Dr. Mirza Sadler HSTROP 669.3 pg/mL Critically high 4.0-76.1 [facility] Comment on above: Result Comment: CUT- OFF POINTS HAVE BEEN ESTABLISHED BASED ON THE FOURTH UNIVERSAL DEFINITIONS OF MYOCARDIAL INFARCTION. THE UPPER REFERENCE LIMIT (URL) OF TROPONIN, DEFINED THE 99TH PERCENTILE OF cTnI DISTRIBUTION IN A REFERENCE POPULATION, HAS BEEN CONFIRMED THE DECISION THRESHOLD FOR [place] DIAGNOSIS. Performed By: #### H STROPN #### [facility] [address] [place] [address] Dr. Mirza Sadler XR CHEST 1 Von [...] WAYNE CASEY Date: 2022-01-15 06:42 Normal [facility] A1C HEMOGLOBINon 12-18-2021 HbA1c (Bld) [Mass fraction] 6.2 % Mesitis Other Glucose - FINGER STICKon Glucose [Mass/Vol] 120 mg/dL Mesitis Other HbA1c (Bld) [Mass fraction]o n 12-18-2021 A1C HEMOGLOBIN [place] [employer] Other XR CHEST 2 Von 12-08-2021 XR [...] HIGINIO FLANAGAN Date: 2021-12-08 16:07 Normal [facility] PTH INTACTon 12-01-2021 PTH, Intact 15 pg/mL Normal 15-65 [facility] Comment on above: Performed By: #### C , [facility] #### [facility] [address] [address] [address] Mirza Sadler VIT D 25-OH LABCORPon 2021 Vitamin D, 25-Hydroxy 41.2 ng/mL Normal 30.0-100.0 [facility] Comment on above: Result Comment: [place] min D deficiency has been defined by the [place] of Medicine and an Endocrine Society practice guideline as a level of serum 25-OH vitamin D less than 20 ng/mL (1,2). The Endocrine Society went on to further define vitamin D insufficiency as a level between 21 and 29 ng/mL (2). 1. IOM ([place] of Medicine). 2010. Dietary reference intakes for calcium and D. [place]: The National Academies Press. 2. Noemy MF, Sonam PAUL, Jake HERMOSILLO, et al. Evaluation, treatment, and prevention of vitamin D deficiency: an Endocrine Society clinical practice guideline. JCEM. 2010; 96(7):1911-30. Performed By: #### P T, PTT #### [facility] [address] [place] [address] Dr. Mirza Sadler HEMOGRAM AND PLATELon 2021 Hematocrit (Bld) [Volume fraction] 39.9 % Critically low 42.0-54.0 [facility] Comment on above: Performed By: #### P T, PTT #### [facility] [address] [place] [address] Dr. Mirza Sadler Hemoglobin (Bld) [Mass/Vol] 13.1 g/dL Critically low 14.0-18.0 [facility] Comment on above: Performed By: #### P T, PTT #### [facility] [address] [place] [address] Dr. Mirza Sadler MCH (RBC) [Entitic mass] 29.5 pg Normal 25.9-34.0 [facility] Comment on above: Performed By: #### P T, PTT #### [facility] [address] [place] [address] Dr. Mirza Sadler MCHC (RBC) [Mass/Vol] 32.8 g/dL Normal 29.9-35.2 [facility] Comment on above: Performed By: #### P T, PTT #### [facility] [address] [place] [address] Dr. Mirza Sadler MCV (RBC) [Entitic vol] 89.9 fL Normal 80.0-94.0 [facility] Comment on above: Performed By: #### P T, PTT #### [facility] [address] [place] [address] Dr. Mirza Sadler PLT 182 103/ul Normal 150-450 [facility] Comment on above: Performed By: #### P T, PTT #### [facility] [address] [place] [address] Dr. Mirza Sadler RBC 4.44 106/ul Critically low 4.70-6.[address] [facility] Comment on above: Performed By: #### P T, PTT #### [facility] [address] [place] [address] Dr. Mirza Sadler WBC 6.9 103/ul Normal 4.0-11.0 [facility] Comment on above: Performed By: #### P T, PTT #### [facility] [address] [place] [address] Dr. Mirza Sadler MAGNESIUMon 11-30-2021 Magnesium [Mass/Vol] 1.8 mg/dL Normal 1.8-2.4 [facility] Comment on above: Performed By: #### P T, PTT #### [facility] [address] [place] [address] Dr. Mirza Sadler RENAL FUNCTION PANELon 11-30 Albumin [Mass/Vol] 3.9 g/dL Normal 3.4-5.0 [facility] Comment on above: Performed By: #### P T, PTT #### [facility] [address] [place] [address] Dr. Mirza Sadler Calcium [Mass/Vol] 9.0 mg/dL Normal 8.5-10.1 [facility] Comment on above: Performed By: #### P T, PTT #### [facility] [address] [place] [address] Dr. Mirza Sadler Chloride [Moles/Vol] 107 mmol/L Normal 98-107 [facility] Comment on above: Performed By: #### P T, PTT #### [facility] [address] [place] [address] Dr. Mirza Sadler CO2 [Moles/Vol] 26.2 mmol/L Normal 21.0-32.0 [facility] Comment on above: Performed By: #### P T, PTT #### [facility] [address] [place] [address] Dr. Mirza Sadler Creatinine [Mass/Vol] 1.55 mg/dL Critically high 0.70-1.30 [facility] Comment on above: Performed By: #### P T, PTT #### [facility] [address] [address] [address] Mirza Sadler EGFR-AF GUATEMALAN 54 mL/min/1.73m2 Critically low >=60 [facility] Comment on above: Performed By: #### P T, PTT #### [facility] [address] [address] [address] Mirza Sadler EGFR-NON AF GUATEMALAN 45 mL/min/1.73m2 Critically low >=60 [facility] Comment on above: Performed By: #### P T, PTT #### [facility] [address] [place] [address] Dr. Mirza Sadler Glucose [Mass/Vol] 166 mg/dL Critically high 74-106 [facility] Comment on above: Performed By: #### P T, PTT #### [facility] [address] [address] [address] Mirza Sadler Phosphate [Mass/Vol] 3.7 mg/dL Normal 2.6-4.7 [facility] Comment on above: Performed By: #### P T, PTT #### [facility] [address] [place] [address] Dr. Mirza Sadler Potassium [Moles/Vol] 4.2 mmol/L Normal 3.5-5.1 [facility] Comment on above: Performed By: #### P T, PTT #### [facility] [address] [address] [address] Mirza Sadler Sodium [Moles/Vol] 142 mmol/L Normal 136-145 [facility] Comment on above: Performed By: #### P T, PTT #### [facility] [address] [address] [address] Mirza Sadler Urea nitrogen [Mass/Vol] 16.0 mg/dL Normal 7.0-18.0 [facility] Comment on above: Performed By: #### P T, PTT #### [facility] [address] [place] [address] Dr. Mirza Sadler UA RANDOM W/MICROSCOPICon BACTERIA NONE SEEN Normal NONE SEEN [facility] Comment on above: Performed By: #### B [id number] #### [facility] [address] [place] [address] Dr. Mirza Sadler Bilirubin Ql (U) Negative Normal NEGATIVE [facility] Comment on above: Performed By: #### B LDCX2 #### [facility] [address] [place] [address] Dr. Mirza Sadler CAST NONE SEEN Normal NONE SEEN [facility] Comment on above: Performed By: #### B [id number] #### [facility] [address] [place] [address] Dr. Mirza Sadler Clarity (U) CLEAR Normal CLEAR [facility] Comment on above: Performed By: #### B [id number] #### [facility] [address] [place] [address] Dr. Mirza Sadler Color (U) LT. YELLOW Normal YELLOW [facility] Comment on above: Performed By: #### B [id number] #### [facility] [address] [place] [address] Dr. Mirza Sadler Crystals LM Nom (Urine sed) NONE SEEN Normal NONE SEEN [facility] Comment on above: Performed By: #### B LDCX2 #### [facility] [address] [place] [address] Dr. Mirza Sadler Epithelial cells LM Ql (Urine sed) RARE Normal NONE SEEN /RARE [facility] Comment on above: Performed By: #### B LDCX2 #### [facility] [address] [place] [address] Dr. Mirza Sadler Glucose Ql (U) >1000 Abnormal NEGATIVE [facility] Comment on above: Performed By: #### B LDCX2 #### [facility] [address] [place] [address] Dr. Mirza Sadler Hemoglobin Ql (U) Negative Normal NEGATIVE The [facility] Comment on above: Performed By: #### B LDCX2 #### [facility] [address] [place] [address] Dr. Mirza Sadler Ketones Ql (U) Negative Normal NEGATIVE [facility] Comment on above: Performed By: #### B LDCX2 #### [facility] [address] [place] [address] Dr. Mirza Sadler LEUKOCYTES Negative Normal NEGATIVE [facility] Comment on above: Performed By: #### B LDCX2 #### [facility] [address] [place] [address] Dr. Mirza Sadler MUCOUS NONE SEEN Normal NONE SEEN [facility] Comment on above: Performed By: #### B LDCX2 #### [facility] [address] [place] [address] Dr. Mirza Sadler Nitrite Ql (U) Negative Normal NEGATIVE [facility] Comment on above: Performed By: #### B LDCX2 #### [facility] [address] [place] [address] Dr. Mirza Sadler pH (U) 5.5 [pH] Normal 5-9 [facility] Comment on above: Performed By: #### B LDCX2 #### [facility] [address] [place] [address] Dr. Mirza Sadler RBC NONE SEEN Abnormal 0-2 [facility] Comment on above: Performed By: #### B LDCX2 #### [facility] [address] [place] [address] Dr. Mirza Sadler SPEC GRAVITY 1.015 Normal 1.005-<=1. 025 [facility] Comment on above: Performed By: #### B LDCX2 #### [facility] [address] [place] [address] Dr. Mirza Sadler UA PROTEIN Negative Normal NEGATIVE/ TRACE [facility] Comment on above: Performed By: #### B LDCX2 #### [facility] [address] [place] [address] Dr. Mirza Sadler Urobilinogen Qn (U) 0.2 {Luisito'U}/dL Normal 0.2 - 1. 0 [facility] Comment on above: Performed By: #### B LDCX2 #### [facility] [address] [place] [address] Dr. Mirza Sadler WBC NONE SEEN Normal NONE SEEN [facility] Comment on above: Performed By: #### B LDCX2 #### [facility] [address] [address] [address] Mirza Sadler URINE T PROTEIN CREAT RATIOo n 11-30-2021 Protein (U) [Mass/Vol] 22.4 mg/dL Critically high <=12.0 [facility] Comment on above: Performed By: #### U RTPCR #### [facility] [address] [address] [address] Mirza Sadler UR PROT CREAT RAT 0.31 Normal [facility] Comment on above: Performed By: #### U RTPCR #### [facility] [address] [address] [address] Mirza Sadler URINE CREAT 73.05 mg/dL Normal 20.00-300. 00 [facility] Comment on above: Performed By: #### U RTPCR #### [facility] [address] [address] [address] Mirza Sadler NM HEPATOBILIARY SCAN W [...] HIGINIO FLANAGAN Date: 2021-11-24 11:55 Normal [facility] BNPon 10-27-2021 Natriuretic peptide B (Bld) [Mass/Vol] 574.0 pg/mL Normal <=900.0 [facility] Comment on above: Performed By: #### P T, PTT #### [facility] [address] [place] [address] Dr. Mirza Sadler CARDIAC PARUL ADMITon 022 CK [Catalytic activity/Vol] 70 U/L Normal 39-308 [facility] Comment on above: Performed By: #### P T, PTT #### [facility] [address] [place] [address] Dr. Mirza Sadler CK.MB [Mass/Vol] 1.10 ng/mL Normal <=3.[address] [facility] Comment on above: Performed By: #### P T, PTT #### [facility] [address] [place] [address] Dr. Mirza Sadler HSTROP 22.3 pg/mL Normal 4.0-76.1 [facility] Comment on above: Result Comment: CUT- OFF POINTS HAVE BEEN ESTABLISHED BASED ON THE FOURTH UNIVERSAL DEFINITIONS OF MYOCARDIAL INFARCTION. THE UPPER REFERENCE LIMIT (URL) OF TROPONIN, DEFINED THE 99TH PERCENTILE OF cTnI DISTRIBUTION IN A REFERENCE POPULATION, HAS BEEN CONFIRMED THE DECISION THRESHOLD FOR [place] DIAGNOSIS. Performed By: #### P T, PTT #### [facility] [address] [place] [address] Dr. Mirza Sadler RACHEL 81 ng/mL Normal 16-96 [facility] Comment on above: Performed By: #### P T, PTT #### [facility] [address] [place] [address] Dr. Mirza Sadler CBC AUTO DIFFon 10-27-2021 BASO # 0.1 103/ul Normal 0.0-0.1 [facility] Comment on above: Performed By: #### E RUR #### [facility] [address] [place] [address] Dr. Mirza Sadler Basophils/100 WBC (Bld) 0.4 % Normal 0.2-2.0 [facility] Comment on above: Performed By: #### E RUR #### [facility] [address] [place] [address] Dr. Mirza Sadler EO # 0.1 103/ul Normal 0.0-0.7 [facility] Comment on above: Performed By: #### E RUR #### [facility] [address] [place] [address] Dr. Mirza Sadler Eosinophils/100 WBC (Bld) 0.4 % Critically low 0.9-7.0 [facility] Comment on above: Performed By: #### E RUR #### [facility] [address] [place] [address] Dr. Mirza Sadler Erythrocyte distribution width (RBC) [Ratio] 14.1 % Normal 11.0-15.0 [facility] Comment on above: Performed By: #### E RUR #### [facility] [address] [place] [address] Dr. Mirza Sadler Hematocrit (Bld) [Volume fraction] 41.0 % Critically low 42.0-54.0 [facility] Comment on above: Performed By: #### E RUR #### [facility] [address] [place] [address] Dr. Mirza Sadler Hemoglobin (Bld) [Mass/Vol] 14.1 g/dL Normal 14.0-18.0 [facility] Comment on above: Performed By: #### E RUR #### [facility] [address] [place] [address] Dr. Mirza Sadler IG # 0.05 10e3/ul Critically high 0.00-0.03 [facility] Comment on above: Performed By: #### E RUR #### [facility] [address] [place] [address] Dr. Mirza Sadler IG % 0.4 % Normal 0.0-0.5 [facility] Comment on above: Performed By: #### E RUR #### [facility] [address] [place] [address] Dr. Mirza Sadler LYMPH # 0.9 103/ul Critically low 1.2-3.8 [facility] Comment on above: Performed By: #### E RUR #### [facility] [address] [place], [place] [id number] Dr. Mirza Sadler Lymphocytes/100 WBC (Bld) 6.6 % Critically low 20.5-60.0 [facility] Comment on above: Performed By: #### E RUR #### [facility] [address] [place] [address] Dr. Mirza Sadler MANUAL DIFF REQ NO Normal [facility] Comment on above: Performed By: #### E RUR #### [facility] [address] [place] [address] Dr. Mirza Sadler MCH (RBC) [Entitic mass] 29.7 pg Normal 25.9-34.0 [facility] Comment on above: Performed By: #### E RUR #### [facility] [address] [place] [address] Dr. Mirza Sadler MCHC (RBC) [Mass/Vol] 34.4 g/dL Normal 29.9-35.2 [facility] Comment on above: Performed By: #### E RUR #### [facility] [address] [place] [address] Dr. Mirza Sadler MCV (RBC) [Entitic vol] 86.3 fL Normal 80.0-94.0 [facility] Comment on above: Performed By: #### E RUR #### [facility] [address] [place] [address] Dr. Mirza Sadler MONO # 0.4 103/ul Normal 0.3-0.8 [facility] Comment on above: Performed By: #### E RUR #### [facility] [address] [place] [address] Dr. Mirza Sadler Monocytes/100 WBC (Bld) 2.6 % Normal 1.7-12.0 [facility] Comment on above: Performed By: #### E RUR #### [facility] [address] [place] [address] Dr. Mirza Sadler NEUT # 12.2 103/ul Critically high 1.4-6.[address] [facility] Comment on above: Performed By: #### E RUR #### [facility] [address] [place] [address] Dr. Mirza Sadler Neutrophils/100 WBC (Bld) 89.6 % Critically high 43.0-75.0 [facility] Comment on above: Performed By: #### E RUR #### [facility] [address] [place] [address] Dr. Mirza Sadler Platelet mean volume (Bld) [Entitic vol] 9.7 fL Normal 9.5-13.5 [facility] Comment on above: Performed By: #### E RUR #### [facility] [address] [place] [address] Dr. Mirza Sadler PLT 183 103/ul Normal 150-450 [facility] Comment on above: Performed By: #### E RUR #### [facility] [address] [place] [address] Dr. Mirza Sadler RBC 4.75 106/ul Normal 4.70-6.10 [facility] Comment on above: Performed By: #### E RUR #### [facility] [address] [place] [address] Dr. Mirza Sadler WBC 13.7 103/ul Critically high 4.0-11.[address] [facility] Comment on above: Performed By: #### E RUR #### [facility] [address] [place] [address] Dr. Mirza Sadler CULTURE BLOODon 10-27-2021 Microscopic examination of blood, culture Culture Observations: NO GROWTH AT 5 DAYS. Normal [facility] Comment on above: Performed By: #### B LDCX2 #### [facility] [address] [place] [address] Dr. Mirza Sadler Performed By: #### H STROPN #### [facility] [address] [place] [address] Dr. Mirza Sadler Covid-19 PCR ([facility])on 09-30 SARS-CoV-2 (COVID-19) RNA RAMO+probe Ql (Unsp spec) Not detected Normal NOT DETECTED [facility] Comment on above: Result [...] for this test is supported by the [place] of Health and Human Service's declaration that [...] Performed By: #### P T, PTT #### [facility] [address] [place] [address] Dr. Mirza Sadler ER URINE PROFILEon 2 Bilirubin Ql (U) Negative Normal NEGATIVE [facility] Comment on above: Performed By: #### H STROPN #### [facility] [address] [place] [address] Dr. Mirza Sadler Clarity (U) CLEAR Normal CLEAR [facility] Comment on above: Performed By: #### H STROPN #### [facility] [address] [place] [address] Dr. Mirza Sadler Color (U) YELLOW Normal YELLOW [facility] Comment on above: Performed By: #### H STROPN #### [facility] [address] [place] [address] Dr. Mirza Sadler ERUAHD A micrscopic examina tion will be performed if indicated. Normal [facility] Comment on above: Performed By: #### H STROPN #### [facility] [address] [place] [address] Dr. Mriza Sadler Glucose Ql (U) >1000 Abnormal NEGATIVE [facility] Comment on above: Performed By: #### H STROPN #### [facility] [address] [place] [address] Dr. Mirza Sadler Hemoglobin Ql (U) Negative Normal NEGATIVE [facility] Comment on above: Performed By: #### H STROPN #### [facility] [address] [place] [address] Dr. Mirza Sadler Ketones Ql (U) TRACE Abnormal NEGATIVE [facility] Comment on above: Performed By: #### H STROPN #### [facility] [address] [place] [address] Dr. Mirza Sadler LEUKOCYTES Negative Normal NEGATIVE [facility] Comment on above: Performed By: #### H STROPN #### [facility] [address] [place] [address] Dr. Mirza Sadler Nitrite Ql (U) Negative Normal NEGATIVE [facility] Comment on above: Performed By: #### H STROPN #### [facility] [address] [place] [address] Dr. Mirza Sadler pH (U) 5.5 [pH] Normal 5-9 [facility] Comment on above: Performed By: #### H STROPN #### [facility] [address] [place] [address] Dr. Mirza Sadler SPEC GRAVITY 1.010 Normal 1.005-<=1. 025 [facility] Comment on above: Performed By: #### H STROPN #### [facility] [address] [place] [address] Dr. Mirza Sadler UA PROTEIN Negative Normal NEGATIVE/ TRACE [facility] Comment on above: Performed By: #### H STROPN #### [facility] [address] [place] [address] Dr. Mirza Sadler UR MICRO IND NOT INDICATED Normal [facility] Comment on above: Performed By: #### H STROPN #### [facility] [address] [place] [address] Dr. Mirza Sadler Urobilinogen Qn (U) 0.2 {Luisito'U}/dL Normal 0.2 - 1. 0 [facility] Comment on above: Performed By: #### H STROPN #### [facility] [address] [place] [address] Dr. Mirza Sadler INFLUENZA A AND B AGon 10-27 INFLUANEGH SEE BELOW Normal [facility] Comment on above: Result Comment: Nega tive for Flu A protein angiten. Infection due to Flu A cannot be ruled out. Flu A angiten in the sample may be below the detection limit of the test. Performed By: #### B [employer] #### [facility] [address] [place] [address] Dr. Mirza Sad[facility] SEE BELOW Normal [facility] Comment on above: Result Comment: Nega tive for Flu B protein antigen. Infection due to Flu B cannot be ruled out. Flu B antigen in the sample may be below the detection limit of the test. Performed By: #### B [employer] #### [facility] [address] [place] [address] Dr. Mirza Sadler INFLUENZA A AG Negative Normal NEGATIVE SEE COMMENT [facility] Comment on above: Performed By: #### B [employer] #### [facility] [address] [place] [address] Dr. Mirza Sadler INFLUENZA B AG Negative Normal NEGATIVE SEE COMMENT [facility] Comment on above: Performed By: #### B [employer] #### [facility] [address] [place] [address] Dr. Mirza Sadler INTERNAL CONTROLS Within Normal Limits Normal Wi thin Normal Limits [facility] Comment on above: Performed By: #### B [employer] #### [facility] [address] [place] [address] Dr. Mirza Sadler LACTATE/LACTIC ACIDon 2021 Lactate [Moles/Vol] 1.8 mmol/L Normal 0.4-1.9 [facility] Comment on above: Performed By: #### C MP, CMADM #### [facility] [address] [place] [address] Dr. Mirza Sadler LIPASEon 10-27-2021 Lipase [Catalytic activity/Vol] 87.0 U/L Normal 73.0-393.0 [facility] Comment on above: Performed By: #### P T, PTT #### [facility] [address] [place] [address] Dr. Mirza Sadler PH VENOUS BLOODon 10-27-2021 PCO2 VENOUS 37.6 mmHg Critically low 40.0-52.[address] [facility] Comment on above: Performed By: #### P T, PTT #### [facility] [address] [place] [address] Dr. Mirza Sadler pH VENOUS 7.422 Normal 7.330-7.43 0 [facility] Comment on above: Performed By: #### P T, PTT #### [facility] [address] [place] [address] Dr. Mirza Sadler PROF 14(COMP METB)on 022 Albumin [Mass/Vol] 4.2 g/dL Normal 3.4-5.0 [facility] Comment on above: Performed By: #### P T, PTT #### [facility] [address] [place] [address] Dr. Mirza Sadler Albumin/Globulin [Mass ratio] 1.3 {ratio} Normal [facility] Comment on above: Performed By: #### P T, PTT #### [facility] [address] [place] [address] Dr. Mirza Sadler ALP [Catalytic activity/Vol] 121 U/L Critically high 46-116 [facility] Comment on above: Performed By: #### P T, PTT #### [facility] [address] [place] [address] Dr. Mirza Sadler ALT [Catalytic activity/Vol] 22 U/L Normal 16-63 [facility] Comment on above: Performed By: #### P T, PTT #### [facility] [address] [place] [address] Dr. Mirza Sadler Anion gap [Moles/Vol] 16.0 mmol/L Normal [facility] Comment on above: Performed By: #### P T, PTT #### [facility] [address] [place] [address] Dr. Mirza Sadler AST [Catalytic activity/Vol] 18 U/L Normal 15-37 [facility] Comment on above: Performed By: #### P T, PTT #### [facility] [address] [place] [address] Dr. Mirza Sadler Bilirubin [Mass/Vol] 1.3 mg/dL Critically high 0.2-1.0 [facility] Comment on above: Performed By: #### P T, PTT #### [facility] [address] [place] [address] Dr. Mirza Sadler Calcium [Mass/Vol] 8.9 mg/dL Normal 8.5-10.1 [facility] Comment on above: Performed By: #### P T, PTT #### [facility] [address] [place] [address] Dr. Mirza Sadler Chloride [Moles/Vol] 105 mmol/L Normal 98-107 [facility] Comment on above: Performed By: #### P T, PTT #### [facility] [address] [place] [address] Dr. Mirza Sadler CO2 [Moles/Vol] 23.7 mmol/L Normal 21.0-32.0 [facility] Comment on above: Performed By: #### P T, PTT #### [facility] [address] [place] [address] Dr. Mirza Sadler Creatinine [Mass/Vol] 1.79 mg/dL Critically high 0.70-1.30 [facility] Comment on above: Performed By: #### P T, PTT #### [facility] [address] [place] [address] Dr. Mirza Sadler EGFR-AF GUATEMALAN 46 mL/min/1.73m2 Critically low >=60 [facility] Comment on above: Performed By: #### P T, PTT #### [facility] [address] [place] [address] Dr. Mirza Sadler EGFR-NON AF GUATEMALAN 38 mL/min/1.73m2 Critically low >=60 [facility] Comment on above: Performed By: #### P T, PTT #### [facility] [address] [place] [address] Dr. Mirza Sadler Globulin (S) [Mass/Vol] 3.3 g/dL Normal [facility] Comment on above: Performed By: #### P T, PTT #### [facility] [address] [place] [address] Dr. Mirza Sadler Glucose [Mass/Vol] 195 mg/dL Critically high 74-106 [facility] Comment on above: Performed By: #### P T, PTT #### [facility] [address] [address] [address] Mirza Sadler Potassium [Moles/Vol] 3.7 mmol/L Normal 3.5-5.1 [facility] Comment on above: Performed By: #### P T, PTT #### [facility] [address] [address] [address] Mirza Sadler Protein [Mass/Vol] 7.5 g/dL Normal 6.4-8.2 [facility] Comment on above: Performed By: #### P T, PTT #### [facility] [address] [address] [address] Mirza Sadler Sodium [Moles/Vol] 141 mmol/L Normal 136-145 [facility] Comment on above: Performed By: #### P T, PTT #### [facility] [address] [address] [address] Mirza Sadler Urea nitrogen [Mass/Vol] 25.0 mg/dL Critically high 7.0-18.0 [facility] Comment on above: Performed By: #### P T, PTT #### [facility] [address] [place] [address] Dr. Mirza Sadler Urea nitrogen/Creatinine [Mass ratio] 14.0 mg/mg Normal [facility] Comment on above: Performed By: #### P T, PTT #### [facility] [address] [place] [address] Dr. Mirza Sadler PROTIMEon 10-27-2021 INR Coag (PPP) [Relative time] 1.07 {INR} Normal [facility] Comment on above: Performed By: #### P T, PTT #### [facility] [address] [place] [address] Dr. Mirza Sadler INR GUIDELINES SEE BELOW Normal [facility] Comment on above: Result Comment: RIVKA RED INR: 2.0 - 3.0 CONDITIONS NOT LISTED BELOW 2.5 - 3.5 FOR PROSTHETIC HEART VALVE REPLACEMENT 2.5 - 3.5 RECURRENT THROMBOSIS Performed By: #### P T, PTT #### [facility] [address] [address] [address] Mirza Sadler PT Coag (PPP) [Time] 11.5 s Normal 9.0-11.6 [facility] Comment on above: Performed By: #### P T, PTT #### [facility] [id number] Mirza Sadler PTTon 10-27-2021 aPTT Coag (Bld) [Time] 25.1 s Normal 22.3-36.2 [facility] Comment on above: Performed By: #### P T, PTT #### [facility] [address] [address] [address] Mirza Sadler XR CHEST 1 Von [...] by: GAGAN CAREY Date: 2021-10-27 10:21 Normal [facility] ----- LANI LIZAMA ([id number]) 1950 M Date Time Provider Department 10/20/21 [...] Fully Assessed Reason for Visit: Lab Orders [6938] Primary Visit Diagnosis:Monoclonal gammopathy [D47.2] Order(s):CBC + DIFF [SQCBCDIF] Order #: [id number] FUTURE Prescriptions as of 10/24/2021 - famotidine [...] Status:Closed by VEE DAY on 10/24/21 Normal [facility] CT ABD/PELVIS WO CONon 10-03 [...] HIGINIO FLANAGAN Date: 2021-10-03 16:29 Normal [facility] PROF 14(COMP METB)on 022 Albumin [Mass/Vol] 4.1 g/dL Normal 3.4-5.0 [facility] Comment on above: Performed By: #### P T, PTT #### [facility] [address] [address] [address] Mirza Sadler Albumin/Globulin [Mass ratio] 1.2 {ratio} Normal [facility] Comment on above: Performed By: #### P T, PTT #### [facility] [address] [address] [address] Mirza Sadler ALP [Catalytic activity/Vol] 132 U/L Critically high 46-116 [facility] Comment on above: Performed By: #### P T, PTT #### [facility] [address] [address] [address] Mirza Sadler ALT [Catalytic activity/Vol] 30 U/L Normal 16-63 [facility] Comment on above: Performed By: #### P T, PTT #### [facility] [address] [place] [address] Dr. Mirza Sadler Anion gap [Moles/Vol] 10.7 mmol/L Normal [facility] Comment on above: Performed By: #### P T, PTT #### [facility] [address] [place] [address] Dr. Mirza Sadler AST [Catalytic activity/Vol] 21 U/L Normal 15-37 [facility] Comment on above: Performed By: #### P T, PTT #### [facility] [address] [address] [address] Mirza Sadler Bilirubin [Mass/Vol] 0.7 mg/dL Normal 0.2-1.0 [facility] Comment on above: Performed By: #### P T, PTT #### [facility] [address] [address] [address] Mirza Sadler Calcium [Mass/Vol] 9.0 mg/dL Normal 8.5-10.1 [facility] Comment on above: Performed By: #### P T, PTT #### [facility] [address] [address] [address] Mirza Sadler Chloride [Moles/Vol] 106 mmol/L Normal 98-107 [facility] Comment on above: Performed By: #### P T, PTT #### [facility] [address] [address] [address] Mirza Sadler CO2 [Moles/Vol] 27.5 mmol/L Normal 21.0-32.0 [facility] Comment on above: Performed By: #### P T, PTT #### [facility] [address] [address] [address] Mirza Sadler Creatinine [Mass/Vol] 1.77 mg/dL Critically high 0.70-1.30 [facility] Comment on above: Performed By: #### P T, PTT #### [facility] [address] [address] [address] Mirza Sadler EGFR-AF GUATEMALAN 46 mL/min/1.73m2 Critically low >=60 [facility] Comment on above: Performed By: #### P T, PTT #### [facility] [address] [address] [address] Mirza Sadler EGFR-NON AF GUATEMALAN 38 mL/min/1.73m2 Critically low >=60 [facility] Comment on above: Performed By: #### P T, PTT #### [facility] [address] [address] [address] Mirza Sadler Globulin (S) [Mass/Vol] 3.5 g/dL Normal [facility] Comment on above: Performed By: #### P T, PTT #### [facility] [address] [address] [address] Mirza Sadler Glucose [Mass/Vol] 135 mg/dL Critically high 74-106 [facility] Comment on above: Performed By: #### P T, PTT #### [facility] [address] [address] [address] Mirza Sadler Potassium [Moles/Vol] 4.2 mmol/L Normal 3.5-5.1 [facility] Comment on above: Performed By: #### P T, PTT #### [facility] [address] [address] [address] Mirza Sadler Protein [Mass/Vol] 7.6 g/dL Normal 6.4-8.2 [facility] Comment on above: Performed By: #### P T, PTT #### [facility] [address] [address] [address] Mirza Sadler Sodium [Moles/Vol] 140 mmol/L Normal 136-145 [facility] Comment on above: Performed By: #### P T, PTT #### [facility] [address] [address] [address] Mirza Sadler Urea nitrogen [Mass/Vol] 17.0 mg/dL Normal 7.0-18.0 [facility] Comment on above: Performed By: #### P T, PTT #### [facility] [address] [address] [address] Mirza Sadler Urea nitrogen/Creatinine [Mass ratio] 9.6 mg/mg Normal [facility] Comment on above: Performed By: #### P T, PTT #### [facility] [address] [address] [address] Mirza Sadler US SINGLE QUAD RT [...] by: HIGINIO FLANAGAN Date: 2021-08-27 08:40 Normal [facility] A1C HEMOGLOBINon 07-17-2021 HbA1c (Bld) [Mass fraction] 6.9 % [facility] Other Glucose - FINGER STICKon Glucose [Mass/Vol] 180 mg/dL [facility] Other HbA1c (Bld) [Mass fraction]o n 07-17-2021 A1C HEMOGLOBIN [employer] Other A1C with Estimated Average G luon 04-10-2021 HbA1c (Bld) [Mass fraction] 6.4 % [facility] Other HbA1c (Bld) [Mass fraction] 243 % [facility] Other Glucoseon 04-10-2021 Glucose [Mass/Vol] 243 mg/dL [facility] Other A1C HEMOGLOBINon 01-03-2021 HbA1c (Bld) [Mass fraction] 6.6 % [facility] Other Glucose - FINGER STICKon Glucose [Mass/Vol] 142 mg/dL [facility] Other HbA1c (Bld) [Mass fraction]o n 01-03-2021 A1C HEMOGLOBIN [employer] Other CNPNon 10-27-2020 CNPN Telephone (HEMASA) ----- LANI LIZAMA ([id number]) 1950 M Date Time Provider Department 10/27/20 [...] Status:Closed by ANGELINE WARE on 10/28/20 Normal [facility] Cardiovascular Lab Reporton 10-16-2018 Cardiovascular Lab Report [facility] Patient Name: [facility] MR #: [id number] Physician: Pinky Bishop Department of M.D. Medicine Service Date: 10/15/2018 Division of Birthdate: 1950 Cardiology Room #: [id number] Adult Cardiovascular Services [address] [address] Cardiovascular Laboratory Report FINAL IMPRESSIONS: 1. Severe three-vessel [place] coronary artery disease. 2. Gjjz-us-otjo bypass grafts patent. 3. Mild in-stent restenosis [...] 4. Follow up with me in the [facility] in the next 4-6 weeks. 5. [...] of the vessel. There is evidence of oriu-ef-aqyvu collaterals. The distal vessel is supplied via [...] is a long stented segment in the ektaqmkf-hc-rihnnc portion of the vessel with 30% in-stent restenosis. The vessel distal to the touchdown shows caliber reduction and no discrete stenosis. There is diffuse disease in the branches. Saphenous vein graft to the posterior descending artery. This is widely patent. It shows an extensive stented segment from kqcrkswp-pa-fgxcgplkrp of the vessel. There is a 40%-50% [...] Bishop M.D. Date Trans: 10/16/2018 05:01 Nakul/gatito [id number] cc: Harley Crespo D.O. [address] [place] [phone] Normal [facility] BASIC METABOLIC PANELon 09-29 Calcium [Mass/Vol] 8.9 mg/dL Normal 8.6-10.3 [facility] Comment on above: Order Comment: No: D o not add to previous draw Performed By: #### 1 69, 11030 #### [facility] [address] [place] [address], [place] Chloride [Moles/Vol] 110 mmol/L High 98-107 [facility] Comment on above: Order Comment: No: D o not add to previous draw Performed By: #### 1 69, 74539 #### [facility] [address] [place] [address], [place] CO2 [Moles/Vol] 26 mmol/L Normal 21-31 [facility] Comment on above: Order Comment: No: D o not add to previous draw Performed By: #### 1 69, 44065 #### [facility] [address] [place] [address], [place] Creatinine [Mass/Vol] 1.52 mg/dL High 0.70-1.30 [facility] Comment on above: Order Comment: No: D o not add to previous draw Performed By: #### 1 69, 95187 #### [facility] [address] [place] [address], [place] GFR/1.73 sq M predicted among blacks MDRD (S/P/Bld) [Vol rate/Area] 56 ml/min/1.73sq m Abnormal >60 [facility] Comment on above: Order Comment: No: D o not add to previous draw Performed By: #### 1 69, 37020 #### [facility] [address] [place] [address], [place] GFR/1.73 sq M predicted among non-blacks MDRD (S/P/Bld) [Vol rate/Area] 46 ml/min/1.73sq m Abnormal >60 [facility] Comment on above: Order Comment: No: D o not add to previous draw Performed By: #### 1 69, 17661 #### [facility] [address] [place] [address], [place] Glucose [Mass/Vol] 89 mg/dL Normal 70-100 [facility] Comment on above: Order Comment: No: D o not add to previous draw Performed By: #### 1 69, 56189 #### [facility] [address] [place] [address], [place] Potassium [Moles/Vol] 3.9 mmol/L Normal 3.5-5.1 [facility] Comment on above: Order Comment: No: D o not add to previous draw Performed By: #### 1 69, 91047 #### [facility] [address] [place] [address], [place] Sodium [Moles/Vol] 141 mmol/L Normal 136-145 [facility] Comment on above: Order Comment: No: D o not add to previous draw Performed By: #### 1 69, 63575 #### [facility] [address] [place] [address], [place] Urea nitrogen [Mass/Vol] 19 mg/dL Normal 7-25 [facility] Comment on above: Order Comment: No: D o not add to previous draw Performed By: #### 1 0070, 09532 #### [facility] [address] [place] [address], [facility] CBC W/DIFFon 10-15-2018 ABS BASOPHILS 0.1 10*3/uL Normal 0.0-0.2 [facility] Comment on above: Order Comment: No: D o not add to previous draw Performed By: #### 5 0103 #### [facility] [address] [place] [address], [facility] ABS IMM GRANS 0.0 10*3/uL Normal 0.0-0.2 [facility] Comment on above: Order Comment: No: D o not add to previous draw Performed By: #### 5 0103 #### [facility] [address] [place] [address], [facility] ABS NEUTROPHILS 3.5 10*3/uL Normal 1.6-7.6 [facility] Comment on above: Order Comment: No: D o not add to previous draw Performed By: #### 5 0103 #### [facility] [address] [place] [address], [facility] Basophils/100 WBC (Bld) 0.8 % Normal 0.0-1.0 [facility] Comment on above: Order Comment: No: D o not add to previous draw Performed By: #### 5 0103 #### [facility] [address] [place] [id number], [facility] Eosinophils (Bld) [#/Vol] 0.3 10*3/uL Normal 0.0-0.5 [facility] Comment on above: Order Comment: No: D o not add to previous draw Performed By: #### 5 0103 #### [facility] [address] [place] [id number], [place] Eosinophils/100 WBC (Bld) 3.9 % Normal 0.0-6.0 [facility] Comment on above: Order Comment: No: D o not add to previous draw Performed By: #### 5 0103 #### [facility] [address] [place] [address], [facility] Erythrocyte distribution width (RBC) [Ratio] 13.5 % Normal 11.5-15.0 [facility] Comment on above: Order Comment: No: D o not add to previous draw Performed By: #### 5 0103 #### [facility] [address] [place] [address], [facility] Hematocrit (Bld) [Volume fraction] 39.7 % Normal 39.0-50.0 [facility] Comment on above: Order Comment: No: D o not add to previous draw Performed By: #### 5 0103 #### [facility] [address] [place] [address], [facility] Hemoglobin (Bld) [Mass/Vol] 13.0 g/dL Normal 13.0-17.0 [facility] Comment on above: Order Comment: No: D o not add to previous draw Performed By: #### 5 0103 #### [facility] [address] [place] [address], [facility] IMMATURE GRANS 0.3 % Normal 0.0-1.0 [facility] Comment on above: Order Comment: No: D o not add to previous draw Performed By: #### 5 0103 #### [facility] [address] [place] [address], [facility] Lymphocytes (Bld) [#/Vol] 1.9 10*3/uL Normal 1.2-4.0 [facility] Comment on above: Order Comment: No: D o not add to previous draw Performed By: #### 5 0103 #### [facility] [address] [place] [address], [facility] Lymphocytes/100 WBC (Bld) 30.1 % Normal 20.0-45.0 [facility] Comment on above: Order Comment: No: D o not add to previous draw Performed By: #### 5 0103 #### [facility] [address] [place] [address], [facility] MCH (RBC) [Entitic mass] 30.0 pg Normal 27.0-33.0 [facility] Comment on above: Order Comment: No: D o not add to previous draw Performed By: #### 5 0103 #### [facility] [address] [place] [address], [facility] MCHC (RBC) [Mass/Vol] 32.7 g/dL Normal 32.0-35.0 [facility] Comment on above: Order Comment: No: D o not add to previous draw Performed By: #### 5 0103 #### [facility] [address] [place] [address], [facility] MCV (RBC) [Entitic vol] 91.5 fL Normal 82.0-98.0 [facility] Comment on above: Order Comment: No: D o not add to previous draw Performed By: #### 5 0103 #### [facility] [address] [facility] [place] [address], [facility] Monocytes (Bld) [#/Vol] 0.7 10*3/uL Normal 0.1-1.0 [facility] Comment on above: Order Comment: No: D o not add to previous draw Performed By: #### 5 0103 #### [facility] [address] [id number], [facility] MONOS 10.7 % Normal 5.0-12.0 [facility] Comment on above: Order Comment: No: D o not add to previous draw Performed By: #### 5 0103 #### [facility] [address] [place] [address], [facility] Neutrophils/100 WBC (Bld) 54.2 % Normal 40.0-72.0 [facility] Comment on above: Order Comment: No: D o not add to previous draw Performed By: #### 5 0103 #### [facility] [address] [place] [address], [facility] Nucleated RBC/100 WBC (Bld) [Ratio] 0 % Normal 0-0 [facility] Comment on above: Order Comment: No: D o not add to previous draw Performed By: #### 5 0103 #### [facility] [address] [place] [address], [facility] PLAT CNT 164 10*3/uL Normal 150-400 [facility] Comment on above: Order Comment: No: D o not add to previous draw Performed By: #### 5 0103 #### [facility] [address] [place] [address], [facility] RBC (Bld) [#/Vol] 4.34 10*6/uL Normal 4.20-5.70 [facility] Comment on above: Order Comment: No: D o not add to previous draw Performed By: #### 5 0103 #### [facility] [address] [facility] [place] [address], [facility] WBC (Bld) [#/Vol] 6.38 10*3/uL Normal 4.00-10.60 [facility] Comment on above: Order Comment: No: D o not add to previous draw Performed By: #### 5 0103 #### [facility] [address] [place] [address], [facility] MAGNESIUM BLOODon 10-15-2018 Magnesium [Mass/Vol] 2.0 mg/dL Normal 1.9-2.7 [facility] Comment on above: Order Comment: No: D o not add to previous draw Performed By: #### 1 0070, 24723 #### [facility] [address] [place] [address], [facility] PROTHROMBIN TIMEon 9 INR Coag (PPP) [Relative time] 1.11 {INR} Normal 0.91-1.16 [facility] Comment on above: Order Comment: No: [...] 1995;108:231S-246S. Performed By: #### 5 6101 #### [facility] [address] [place] [address], [facility] PT Coag (PPP) [Time] 14.3 s Normal 12.3-14.8 [facility] Comment on above: Order Comment: No: D o not add to previous draw Result Comment: ALL RESULTS MUST BE INTERPRETED WITH RESPECT TO BLOOD DRAWING ARTIFACT OR DILUTION ERROR OF ANTICOAGULANT AT THE TIME OF SAMPLING. Performed By: #### 5 6101 #### [facility] [address] [place] [address], [facility] POC GLUCOSE LABon 10-14-2018 Glucose [Mass/Vol] 180 mg/dL High 70-100 [facility] Comment on above: Performed By: #### 8 5499 #### [facility] [address] [place] [address], [facility] Cardiovascular Lab Reporton 02-25-2018 Cardiovascular Lab Report [facility] Patient Name: [facility] MR #: [id number] Physician: Pinky Bishop, Department of M.D. Medicine Service Date: 02/24/2018 Division of Birthdate: 1950 Cardiology Room #: [id number] Adult Cardiovascular Services [facility] [address] [place] [id number] Cardiovascular Laboratory Report FINAL IMPRESSIONS: 1. 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 2. Severe 3-vessel [place] coronary artery disease. 3. 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 4. Ddjvxxnn-yf-tfjlwu systemic hypertension. RECOMMENDATIONS: 1. Aspirin 81 mg lifelong. 2. 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 3. Aggressive cardiovascular risk factor modification. 4. Optimization of medical management; high intensity statin therapy as tolerated, we will switch his Toprol-XL to Coreg 25 mg p.o. b.i.d., and angiotensin-converting enzyme inhibitor. 5. Follow up with me in the [facility] in the next 2-3 weeks. 6. [...] is a 30% touchdown stenosis of the [place] vessel. There is evidence of zsre-yt-tzuki collaterals supplying the distal right coronary artery. Limited femoral angiography, this shows mild plaque and anatomy suitable for closure device. INDICATIONS: Unstable angina. Electronically Signed by: Pinky Bishop M.D. 03/06/2018 12:15 P Pinky Bishop M.D. Date Dict: 02/24/2018/01:39 May/Pinky Bishop M.D. Date Trans: 02/25/2018 02:12 Nakul/gatito [id number] cc: Harley Crespo D.O. [address] [place] [phone] [place] [facility] POC GLUCOSE LABon 02-25-2018 Glucose [Mass/Vol] 150 mg/dL High 70-100 [facility] Comment on above: Performed By: #### 8 5499 #### [facility] [address] [place] [address], [facility] POC GLUCOSE LABon 02-24-2018 Glucose [Mass/Vol] 192 mg/dL High 70-100 [facility] Comment on above: Performed By: #### 8 5499 #### [facility] [address] [place] [address], [facility] Glucose [Mass/Vol] 186 mg/dL High 70-100 [facility] Comment on above: Performed By: #### 8 5499 #### [facility] [address] [place] [address], [facility] Vital Signs Date Time Vital Sign Value Performing Clinician Facility 09-24-2024 08:32-0400 Body height 170.2 cm Kenneth Tavera DPM Work Phone: [facility] 09-24-2024 08:32-0400 Body mass index (BMI) [Ratio] 26.78 kg/m2 Kenneth Tavera DPM Work Phone: [facility] 09-24-2024 08:32-0400 Body weight 77.56 kg Kenneth Tavera DPM Work Phone: [facility] 09-24-2024 08:32-0400 Respiratory rate 18 /min Kenneth Tavera DPM Work Phone: [facility] 08-25-2024 11:33-0400 Body height 170.18 cm [facility] 08-25-2024 11:33-0400 Body mass index (BMI) [Ratio] 26.9 kg/m2 [facility] 08-25-2024 11:33-0400 Body weight 77.79 kg [facility] 08-25-2024 11:33-0400 Diastolic blood pressure 73 mm[Hg] [facility] 08-25-2024 11:33-0400 Heart rate 77 /min [facility] 08-25-2024 11:33-0400 Respiratory rate 12 /min [facility] 08-25-2024 11:33-0400 SaO2% (BldA) [Mass fraction] 97 % [facility] 08-25-2024 11:33-0400 Systolic blood pressure 126 mm[Hg] [facility] 08-03-2024 09:28-0400 Body height 170.18 cm Harley Ball DO Work Phone: [facility] 08-03-2024 09:28-0400 Body mass index (BMI) [Ratio] 31.8 kg/m2 Harley Ball DO Work Phone: [facility] 08-03-2024 09:28-0400 Body weight 92.4 kg Harley Ball DO Work Phone: [facility] 08-03-2024 09:28-0400 Diastolic blood pressure 83 mm[Hg] Harley Ball DO Work Phone: [facility] 08-03-2024 09:28-0400 Heart rate 77 /min Harley Ball DO Work Phone: [facility] 08-03-2024 09:28-0400 Respiratory rate 18 /min Harley Ball DO Work Phone: [facility] 08-03-2024 09:28-0400 SaO2% (BldA) [Mass fraction] 99 % Harley Ball DO Work Phone: [facility] 08-03-2024 09:28-0400 Systolic blood pressure 143 mm[Hg] Harley Ball DO Work Phone: [facility] 07-27-2024 11:29-0400 Diastolic blood pressure 80 mm[Hg] Harley Ball DO Work Phone: [facility] 07-27-2024 11:29-0400 Heart rate 74 /min Harley Ball DO Work Phone: [facility] 07-27-2024 11:29-0400 Systolic blood pressure 143 mm[Hg] Harley Ball DO Work Phone: [facility] 07-27-2024 11:23-0400 Body height 170.18 cm Harley Ball DO Work Phone: [facility] 07-27-2024 11:23-0400 Body mass index (BMI) [Ratio] 28.8 kg/m2 Harley Ball DO Work Phone: [facility] 07-27-2024 11:23-0400 Body weight 83.57 kg Harley Ball DO Work Phone: [facility] 07-27-2024 11:23-0400 Respiratory rate 12 /min Harley Ball DO Work Phone: [facility] 07-27-2024 11:23-0400 SaO2% (BldA) [Mass fraction] 100 % Harley Ball DO Work Phone: [facility] 07-14-2024 09:43-0400 Body height 170.18 cm Harley Ball DO Work Phone: [facility] 07-14-2024 09:43-0400 Body mass index (BMI) [Ratio] 28.1 kg/m2 Harley Ball DO Work Phone: [facility] 07-14-2024 09:43-0400 Body weight 81.64 kg Harley Ball DO Work Phone: [facility] 07-14-2024 09:43-0400 Diastolic blood pressure 83 mm[Hg] Harley Ball DO Work Phone: [facility] 07-14-2024 09:43-0400 Heart rate 74 /min Harley Ball DO Work Phone: [facility] 07-14-2024 09:43-0400 Respiratory rate 16 /min Harley Ball DO Work Phone: [facility] 07-14-2024 09:43-0400 SaO2% (BldA) [Mass fraction] 99 % Harley Ball DO Work Phone: [facility] 07-14-2024 09:43-0400 Systolic blood pressure 141 mm[Hg] Harley Ball DO Work Phone: [facility] 04-30-2024 09:42-0500 Body height 170.18 cm [facility] 04-30-2024 09:42-0500 Body mass index (BMI) [Ratio] 27.9 kg/m2 [facility] 04-30-2024 09:42-0500 Body weight 80.96 kg [facility] 04-30-2024 09:42-0500 Diastolic blood pressure 80 mm[Hg] [facility] 04-30-2024 09:42-0500 Heart rate 81 /min [facility] 04-30-2024 09:42-0500 Respiratory rate 18 /min [facility] 04-30-2024 09:42-0500 SaO2% (BldA) [Mass fraction] 98 % [facility] 04-30-2024 09:42-0500 Systolic blood pressure 134 mm[Hg] [facility] 04-16-2024 08:24-0500 Body height 170.18 cm [facility] 04-16-2024 08:24-0500 Body mass index (BMI) [Ratio] 28.2 kg/m2 [facility] 04-16-2024 08:24-0500 Body weight 81.76 kg [facility] 04-16-2024 08:24-0500 Diastolic blood pressure 80 mm[Hg] [facility] 04-16-2024 08:24-0500 Heart rate 84 /min [facility] 04-16-2024 08:24-0500 Respiratory rate 12 /min [facility] 04-16-2024 08:24-0500 SaO2% (BldA) [Mass fraction] 97 % [facility] 04-16-2024 08:24-0500 Systolic blood pressure 137 mm[Hg] [facility] 04-02-2024 11:44-0500 Body height 170.2 cm Kenneth Tavera DPM Work Phone: [facility] 04-02-2024 11:44-0500 Body mass index (BMI) [Ratio] 26.78 kg/m2 Kenneth Tavera DPM Work Phone: [facility] 04-02-2024 11:44-0500 Body weight 77.56 kg Kenneth Tavera DPM Work Phone: [facility] 04-02-2024 11:44-0500 Respiratory rate 18 /min Kenneth Tavera DPM Work Phone: [facility] 02-24-2024 09:46-0500 Body height 170.18 cm [facility] 02-24-2024 09:46-0500 Body mass index (BMI) [Ratio] 27.1 kg/m2 [facility] 02-24-2024 09:46-0500 Body weight 78.47 kg [facility] 02-24-2024 09:46-0500 Diastolic blood pressure 68 mm[Hg] [facility] 02-24-2024 09:46-0500 Heart rate 80 /min [facility] 02-24-2024 09:46-0500 SaO2% (BldA) [Mass fraction] 97 % [facility] 02-24-2024 09:46-0500 Systolic blood pressure 110 mm[Hg] [facility] 01-23-2024 11:29-0400 Body height 170.2 cm Kenneth Tavera DPM Work Phone: [facility] 01-23-2024 11:29-0400 Body mass index (BMI) [Ratio] 26.78 kg/m2 Kenneth Tavera DPM Work Phone: [facility] 01-23-2024 11:29-0400 Body weight 77.56 kg Kenneth Tavera DPM Work Phone: [facility] 01-23-2024 11:29-0400 Diastolic blood pressure 82 mm[Hg] Kenneth Tavera DPM Work Phone: [facility] 01-23-2024 11:29-0400 Heart rate 88 /min Kenneth Tavera DPM Work Phone: [facility] 01-23-2024 11:29-0400 Systolic blood pressure 128 mm[Hg] Kenneth Tavera DPM Work Phone: [facility] 01-23-2024 09:05-0400 Body height 170.18 cm [facility] 01-23-2024 09:05-0400 Body mass index (BMI) [Ratio] 27.3 kg/m2 [facility] 01-23-2024 09:05-0400 Body weight 79.37 kg [facility] 01-23-2024 09:05-0400 Diastolic blood pressure 71 mm[Hg] [facility] 01-23-2024 09:05-0400 Heart rate 78 /min [facility] 01-23-2024 09:05-0400 Respiratory rate 18 /min [facility] 01-23-2024 09:05-0400 SaO2% (BldA) [Mass fraction] 98 % [facility] 01-23-2024 09:05-0400 Systolic blood pressure 106 mm[Hg] [facility] 01-07-2024 08:26-0400 Body height 170.18 cm [facility] 01-07-2024 08:26-0400 Body mass index (BMI) [Ratio] 27.2 kg/m2 [facility] 01-07-2024 08:26-0400 Body temperature 96.7 [degF] [facility] 01-07-2024 08:26-0400 Body weight 78.98 kg [facility] 01-07-2024 08:26-0400 Diastolic blood pressure 77 mm[Hg] [facility] 01-07-2024 08:26-0400 Heart rate 91 /min [facility] 01-07-2024 08:26-0400 Respiratory rate 16 /min [facility] 01-07-2024 08:26-0400 SaO2% (BldA) [Mass fraction] 97 % [facility] 01-07-2024 08:26-0400 Systolic blood pressure 123 mm[Hg] [facility] 12-12-2023 08:25-0400 Body height 170.18 cm [facility] 12-12-2023 08:25-0400 Body mass index (BMI) [Ratio] 27.4 kg/m2 [facility] 12-12-2023 08:25-0400 Body weight 79.49 kg [facility] 12-12-2023 08:25-0400 Diastolic blood pressure 79 mm[Hg] [facility] 12-12-2023 08:25-0400 Heart rate 80 /min [facility] 12-12-2023 08:25-0400 Respiratory rate 12 /min [facility] 12-12-2023 08:25-0400 Systolic blood pressure 127 mm[Hg] [facility] 10-17-2023 09:21-0400 Body height 170.18 cm [facility] 10-17-2023 09:21-0400 Body mass index (BMI) [Ratio] 28.2 kg/m2 [facility] 10-17-2023 09:21-0400 Body weight 81.81 kg [facility] 10-17-2023 09:21-0400 Diastolic blood pressure 79 mm[Hg] [facility] 10-17-2023 09:21-0400 Heart rate 70 /min [facility] 10-17-2023 09:21-0400 Respiratory rate 18 /min [facility] 10-17-2023 09:21-0400 SaO2% (BldA) [Mass fraction] 97 % [facility] 10-17-2023 09:21-0400 Systolic blood pressure 133 mm[Hg] [facility] 08-12-2023 08:37-0400 Body height 170.18 cm [facility] 08-12-2023 08:37-0400 Body mass index (BMI) [Ratio] 27.6 kg/m2 [facility] 08-12-2023 08:37-0400 Body weight 79.88 kg [facility] 08-12-2023 08:37-0400 Diastolic blood pressure 84 mm[Hg] [facility] 08-12-2023 08:37-0400 Heart rate 82 /min [facility] 08-12-2023 08:37-0400 Respiratory rate 12 /min [facility] 08-12-2023 08:37-0400 Systolic blood pressure 134 mm[Hg] [facility] 07-02-2023 08:54-0400 Body height 170.18 cm [facility] 07-02-2023 08:54-0400 Body mass index (BMI) [Ratio] 27.3 kg/m2 [facility] 07-02-2023 08:54-0400 Body temperature 96.5 [degF] [facility] 07-02-2023 08:54-0400 Body weight 79.09 kg [facility] 07-02-2023 08:54-0400 Diastolic blood pressure 79 mm[Hg] [facility] 07-02-2023 08:54-0400 Heart rate 87 /min [facility] 07-02-2023 08:54-0400 Respiratory rate 18 /min [facility] 07-02-2023 08:54-0400 SaO2% (BldA) [Mass fraction] 96 % [facility] 07-02-2023 08:54-0400 Systolic blood pressure 120 mm[Hg] [facility] 06-18-2023 10:51-0400 Body height 170.18 cm [facility] 06-18-2023 10:51-0400 Body mass index (BMI) [Ratio] 26.6 kg/m2 [facility] 06-18-2023 10:51-0400 Body weight 77.11 kg [facility] 06-18-2023 10:51-0400 Diastolic blood pressure 84 mm[Hg] [facility] 06-18-2023 10:51-0400 Heart rate 95 /min [facility] 06-18-2023 10:51-0400 Respiratory rate 18 /min [facility] 06-18-2023 10:51-0400 SaO2% (BldA) [Mass fraction] 97 % [facility] 06-18-2023 10:51-0400 Systolic blood pressure 127 mm[Hg] [facility] 05-03-2023 09:30-0500 Body height 170.18 cm DO Harley Ball Work Phone: [facility] 05-03-2023 09:30-0500 Body weight 77.29 kg DO Harley Ball Work Phone: [facility] 05-03-2023 09:30-0500 Diastolic blood pressure 85 mm[Hg] DO Harley Ball Work Phone: [facility] 05-03-2023 09:30-0500 Systolic blood pressure 126 mm[Hg] DO Harley Ball Work Phone: [facility] 03-12-2023 11:15-0500 Body height 170.18 cm Tondra Mapus Other [facility] 03-12-2023 11:15-0500 Body mass index (BMI) [Ratio] 27.03 kg/m2 Tondra Mapus Other [facility] Other 03-12-2023 11:15-0500 Body weight 78.29 kg Tondra Mapus Other [facility] 03-12-2023 11:15-0500 Diastolic blood pressure 79 mm[Hg] Tondra Mapus Other [facility] 03-12-2023 11:15-0500 Respiratory rate 18 /min Tondra Mapus Other [facility] Other 03-12-2023 11:15-0500 SaO2% (BldA) [Mass fraction] 98 % Tondra Mapus Other [facility] Other 03-12-2023 11:15-0500 Systolic blood pressure 128 mm[Hg] Tondra Mapus Other [facility] 01-07-2023 10:00-0400 Body height 170.18 cm Kingsley Latisha Other [facility] Other 01-07-2023 10:00-0400 Body mass index (BMI) [Ratio] 27 kg/m2 Kingsley Latisha Other [facility] Other 01-07-2023 10:00-0400 Body temperature 97.7 [degF] Kingsley Latisha Other [facility] Other 01-07-2023 10:00-0400 Body weight 78.2 kg Kingsley Latisha Other [facility] Other 01-07-2023 10:00-0400 Diastolic blood pressure 73 mm[Hg] Kingsley Latisha Other [facility] Other 01-07-2023 10:00-0400 Respiratory rate 16 /min Kingsley Latisha Other [facility] Other 01-07-2023 10:00-0400 SaO2% (BldA) [Mass fraction] 98 % Kingsley Latisha Other [facility] Other 01-07-2023 10:00-0400 Systolic blood pressure 108 mm[Hg] Kingsley Latisha Other [facility] Other 12-31-2022 09:30-0400 Body height 170.18 cm Harley Ball Other [facility] Other 12-31-2022 09:30-0400 Body mass index (BMI) [Ratio] 27.03 kg/m2 Harley Ball Other [facility] Other 12-31-2022 09:30-0400 Body weight 78.29 kg Harley Ball Other [facility] Other 12-31-2022 09:30-0400 Diastolic blood pressure 69 mm[Hg] Harley Ball Other [facility] Other 12-31-2022 09:30-0400 Respiratory rate 16 /min Harley Ball Other [facility] Other 12-31-2022 09:30-0400 Systolic blood pressure 102 mm[Hg] Harley Ball Other [facility] Other 08-31-2022 08:45-0400 Body height 170.18 cm Harley Ball Other [facility] Other 08-31-2022 08:45-0400 Body mass index (BMI) [Ratio] 26.72 kg/m2 Harley Ball Other [facility] Other 08-31-2022 08:45-0400 Body weight 77.38 kg Harley Ball Other [facility] Other 08-31-2022 08:45-0400 Diastolic blood pressure 69 mm[Hg] Harley Ball Other [facility] Other 08-31-2022 08:45-0400 Respiratory rate 12 /min Harley Ball Other [facility] Other 08-31-2022 08:45-0400 Systolic blood pressure 102 mm[Hg] Harley Ball Other [facility] Other 07-02-2022 10:40-0400 Body height 170.18 cm Kingsley Latisha Other [facility] Other 07-02-2022 10:40-0400 Body mass index (BMI) [Ratio] 27.69 kg/m2 Kingsley Latisha Other [facility] Other 07-02-2022 10:40-0400 Body temperature 96.4 [degF] Kingsley Latisha Other [facility] Other 07-02-2022 10:40-0400 Body weight 80.2 kg Kingsely Latisha Other [facility] Other 07-02-2022 10:40-0400 Diastolic blood pressure 71 mm[Hg] Kingsley Latisha Other [facility] Other 07-02-2022 10:40-0400 Respiratory rate 16 /min Kingsley Latisha Other [facility] Other 07-02-2022 10:40-0400 SaO2% (BldA) [Mass fraction] 97 % Kingsley Latisha Other [facility] Other 07-02-2022 10:40-0400 Systolic blood pressure 115 mm[Hg] Kingsley Latisha Other [facility] Other 06-28-2022 09:30-0400 Body height 170.18 cm Harley Ball Other [facility] Other 06-28-2022 09:30-0400 Body mass index (BMI) [Ratio] 27.16 kg/m2 Ahrley Ball Other [facility] Other 06-28-2022 09:30-0400 Body weight 78.65 kg Harley Ball Other [facility] Other 06-28-2022 09:30-0400 Diastolic blood pressure 66 mm[Hg] Harley Ball Other [facility] Other 06-28-2022 09:30-0400 Respiratory rate 12 /min Harley Ball Other [facility] Other 06-28-2022 09:30-0400 Systolic blood pressure 115 mm[Hg] Harley Ball Other [facility] Other 03-28-2023 08:45-0400 Body height 170.18 cm Tondra Mapus Other [facility] Other 06-26-2022 08:45-0400 Body mass index (BMI) [Ratio] 27.75 kg/m2 Tondra Mapus Other [facility] Other 06-26-2022 08:45-0400 Body weight 80.38 kg Tondra Mapus Other [facility] Other 06-26-2022 08:45-0400 Diastolic blood pressure 61 mm[Hg] Tondra Mapus Other [facility] Other 06-26-2022 08:45-0400 Respiratory rate 16 /min Tondra Mapus Other [facility] Other 06-26-2022 08:45-0400 SaO2% (BldA) [Mass fraction] 96 % Tondra Mapus Other [facility] Other 06-26-2022 08:45-0400 Systolic blood pressure 105 mm[Hg] Tondra Mapus Other [facility] Other 03-20-2022 09:15-0500 Body height 170.18 cm Tondra Mapus Other [facility] Other 03-20-2022 09:15-0500 Body mass index (BMI) [Ratio] 26.15 kg/m2 Tondra Mapus Other [facility] Other 03-20-2022 09:15-0500 Body weight 75.75 kg Tondra Mapus Other [facility] Other 03-20-2022 09:15-0500 Diastolic blood pressure 57 mm[Hg] Tondra Mapus Other [facility] Other 03-20-2022 09:15-0500 Respiratory rate 16 /min Tondra Mapus Other [facility] Other 03-20-2022 09:15-0500 SaO2% (BldA) [Mass fraction] 98 % Tondra Mapus Other [facility] Other 03-20-2022 09:15-0500 Systolic blood pressure 117 mm[Hg] Tondra Mapus Other [facility] Other 01-17-2022 11:45-0400 Body height 170.18 cm DO Harley Ball Work Phone: [facility] 01-17-2022 11:22-0400 Diastolic blood pressure 68 mm[Hg] DO Harley Ball Work Phone: [facility] 01-17-2022 11:22-0400 Heart rate 60 /min DO Harley Ball Work Phone: [facility] 01-17-2022 11:22-0400 Systolic blood pressure 118 mm[Hg] DO Harley Ball Work Phone: [facility] 01-17-2022 11:05-0400 Body temperature 97.4 [degF] DO Harley Ball Work Phone: [facility] 01-17-2022 11:05-0400 Respiratory rate 18 /min DO Harley Ball Work Phone: [facility] 01-17-2022 11:05-0400 SaO2% (BldA) [Mass fraction] 95 % DO Harley Ball Work Phone: [facility] 01-17-2022 06:58-0400 Body weight 77.9 kg DO Harley Ball Work Phone: [facility] 01-15-2022 15:23-0400 Inhaled oxygen flow rate 2 L/min DO Harley Ball Work Phone: [facility] 12-18-2021 09:45-0400 Body height 170.18 cm Tondra Mapus Other [facility] Other 12-18-2021 09:45-0400 Body mass index (BMI) [Ratio] 27.25 kg/m2 Tondra Mapus Other [facility] Other 12-18-2021 09:45-0400 Body weight 78.93 kg Tondra Mapus Other [facility] Other 12-18-2021 09:45-0400 Diastolic blood pressure 65 mm[Hg] Tondra Mapus Other [facility] Other 12-18-2021 09:45-0400 Respiratory rate 16 /min Tondra Mapus Other [facility] Other 12-18-2021 09:45-0400 SaO2% (BldA) [Mass fraction] 97 % Tondra Mapus Other [facility] Other 12-18-2021 09:45-0400 Systolic blood pressure 133 mm[Hg] Tondra Mapus Other [facility] Other 09-29-2021 13:13-0400 Blood Pressure Location [facility]agan DAVID [facility] 09-29-2021 13:13-0400 Diastolic blood pressure 74 mm[Hg] Gagan DAVID [facility] 09-29-2021 13:13-0400 Heart rate 60 /min [facility] MROGANL [facility] 09-29-2021 13:13-0400 Respiratory rate 16 /min Gagan NILL [facility] 09-29-2021 13:13-0400 Systolic blood pressure 138 mm[Hg] Gagan NILL [facility] 07-17-2021 09:45-0400 Body height 170.18 cm Tondra Mapus Other [facility] Other 07-17-2021 09:45-0400 Body mass index (BMI) [Ratio] 30.69 kg/m2 Tondra Mapus Other [facility] Other 07-17-2021 09:45-0400 Body weight 88.91 kg Tondra Mapus Other [facility] Other 07-17-2021 09:45-0400 Diastolic blood pressure 73 mm[Hg] Tondra Mapus Other [facility] Other 07-17-2021 09:45-0400 Respiratory rate 16 /min Tondra Mapus Other [facility] Other 07-17-2021 09:45-0400 SaO2% (BldA) [Mass fraction] 97 % Tondra Mapus Other [facility] Other 07-17-2021 09:45-0400 Systolic blood pressure 163 mm[Hg] Tondra Mapus Other [facility] Other 06-06-2021 10:20-0500 Body height 170.18 cm Kingsley Latisha Other [facility] Other 06-06-2021 10:20-0500 Body mass index (BMI) [Ratio] 30.29 kg/m2 Kingsley Latisha Other [facility] Other 06-06-2021 10:20-0500 Body temperature 96.1 [degF] Kingsley Latisha Other [facility] Other 06-06-2021 10:20-0500 Body weight 87.73 kg Kingsley Latisha Other [facility] Other 06-06-2021 10:20-0500 Diastolic blood pressure 70 mm[Hg] Kingsley Latisha Other [facility] Other 06-06-2021 10:20-0500 Respiratory rate 18 /min Kingsley Latisha Other [facility] Other 06-06-2021 10:20-0500 SaO2% (BldA) [Mass fraction] 97 % Kingsley Latisha Other [facility] Other 06-06-2021 10:20-0500 Systolic blood pressure 160 mm[Hg] Kingsley Latisha Other [facility] Other 04-10-2021 09:15-0500 Body height 170.18 cm Tondra Mapus Other [facility] Other 04-10-2021 09:15-0500 Body mass index (BMI) [Ratio] 30.99 kg/m2 Tondra Mapus Other [facility] Other 04-10-2021 09:15-0500 Body weight 89.77 kg Tondra Mapus Other [facility] Other 04-10-2021 09:15-0500 Diastolic blood pressure 64 mm[Hg] Tondra Mapus Other [facility] Other 04-10-2021 09:15-0500 Respiratory rate 18 /min Tondra Mapus Other [facility] Other 04-10-2021 09:15-0500 SaO2% (BldA) [Mass fraction] 98 % Tondra Mapus Other [facility] Other 04-10-2021 09:15-0500 Systolic blood pressure 136 mm[Hg] Tondra Mapus Other [facility] Other 02-14-2021 10:00-0500 Body height 170.18 cm Kingsley Latisha Other [facility] Other 02-14-2021 10:00-0500 Body mass index (BMI) [Ratio] 30.98 kg/m2 Kingsley Latisha Other [facility] Other 02-14-2021 10:00-0500 Body temperature 96 [degF] Kingsley Latisha Other [facility] Other 02-14-2021 10:00-0500 Body weight 89.72 kg Kingsley Latisha Other [facility] Other 02-14-2021 10:00-0500 Diastolic blood pressure 60 mm[Hg] Kingsley Latisha Other [facility] Other 02-14-2021 10:00-0500 Respiratory rate 16 /min Kingsley Latisha Other [facility] Other 02-14-2021 10:00-0500 SaO2% (BldA) [Mass fraction] 97 % Kingsley Latisha Other [facility] Other 02-14-2021 10:00-0500 Systolic blood pressure 130 mm[Hg] Kingsley Latisha Other [facility] Other 01-03-2021 10:15-0400 Body height 170.18 cm Tondra Mapus Other [facility] Other 01-03-2021 10:15-0400 Body mass index (BMI) [Ratio] 31.01 kg/m2 Tondra Mapus Other [facility] Other 01-03-2021 10:15-0400 Body weight 89.81 kg Tondra Mapus Other [facility] Other 01-03-2021 10:15-0400 Diastolic blood pressure 67 mm[Hg] Tondra Mapus Other [facility] Other 01-03-2021 10:15-0400 Respiratory rate 16 /min Tondra Mapus Other [facility] Other 01-03-2021 10:15-0400 SaO2% (BldA) [Mass fraction] 99 % Tondra Mapus Other [facility] Other 01-03-2021 10:15-0400 Systolic blood pressure 151 mm[Hg] Arlen Kwong Other [facility] Other Encounters Encounter Date Encounter Type Care Provider Facility Start: 10-08-2024 End: 10-08-2024 ambulatory [facility] Start: 10-06-2024 ambulatory [facility] Start: 09-29-2024 End: 09-29-2024 ambulatory [facility] Start: 09-25-2024 End: 09-25-2024 ambulatory [facility] Start: 09-24-2024 End: 09-24-2024 Bamboo flowsheet Kenneth Tavera DPM Work Phone: [facility] Start: 09-24-2024 End: 09-24-2024 Bamboo flowsheet eKnneth Tavera DPM Work Phone: [facility] [...] Start: 09-21-2024 End: 09-21-2024 ambulatory NON STAFF Facility:[facility] Start: 08-28-2024 End: 08-28-2024 ambulatory [facility] Start: 08-28-2024 End: 08-28-2024 ambulatory [facility] Start: 08-27-2024 End: 08-27-2024 ambulatory Harley Crespo Facility:[facility] Start: 08-27-2024 Non-patient / Non-visit [facility] Work Phone: Start: 08-25-2024 End: 08-25-2024 ambulatory [facility] Work Phone: Start: 08-25-2024 End: 08-25-2024 Patient encounter procedure [facility] Work Phone: Start: 08-21-2024 Non-patient / Non-visit [facility] Work Phone: Start: 08-20-2024 End: 08-20-2024 ambulatory NETOAB VIJAY [facility] Start: 08-14-2024 Evaluation and management of inpatient [facility] Start: 08-13-2024 [facility] Start: 08-13-2024 End: 08-14-2024 Evaluation and management of inpatient KATARZYNA Solomon WILL [facility] Start: 08-13-2024 Non-patient / Non-visit [facility] Work Phone: Start: 08-04-2024 End: 08-04-2024 ambulatory OBI JD [facility] Start: 08-04-2024 End: 08-04-2024 ambulatory Jason LARKIN Facility:[facility] Start: 08-04-2024 End: 08-04-2024 Patient encounter procedure Jason LARKIN [facility] Start: 08-03-2024 End: 08-03-2024 ambulatory Jason LARKIN Facility:[facility] Start: 08-03-2024 End: 08-03-2024 Lab Drop off Jason LARKIN [facility] Start: 08-03-2024 End: 08-03-2024 ambulatory HARLEY BALL Facility:[facility] Start: 08-03-2024 End: 08-03-2024 ambulatory Harley Ball DO Work Phone: [facility] Work Phone: Start: 08-03-2024 End: 08-03-2024 Patient encounter procedure Harley Ball DO Work Phone: [facility] Work Phone: Start: 07-27-2024 End: 07-27-2024 ambulatory Harley Ball DO Work Phone: [facility] Work Phone: Start: 07-27-2024 End: 07-27-2024 Patient encounter procedure Harley Ball DO Work Phone: [facility] Work Phone: Start: 07-17-2024 ambulatory EMEKA CRISTOPHER [facility] Start: 07-16-2024 Non-patient / Non-visit Benjam in Ball DO Work Phone: [facility] Work Phone: Start: 07-15-2024 ambulatory Jason LARKIN Facility : [facility] Start: 07-15-2024 Non-patient / Non-visit Benjam in Ball DO Work Phone: [facility] Work Phone: Start: 07-14-2024 End: 07-14-2024 ambulatory Harley Ball DO Work Phone: [facility] Work Phone: Start: 07-14-2024 End: 07-14-2024 Patient encounter procedure Harley Ball DO Work Phone: [facility] Work Phone: Start: 07-07-2024 End: 07-07-2024 ambulatory Kingsley Latisha Facility:[facility] Start: 07-07-2024 Non-patient / Non-visit Benjam in Ball DO Work Phone: [facility] Work Phone: Start: 06-22-2024 ambulatory [facility] Start: 06-18-2024 End: 06-18-2024 ambulatory KENNETH TAVERA Not Available Start: 06-10-2024 Non-patient / Non-visit Benjam in Ball DO Work Phone: [facility] Work Phone: Start: 05-28-2024 End: 05-28-2024 Departed Referred Harley Ball DO Work Phone: [facility] Work Phone: Start: 05-28-2024 End: 05-28-2024 Patient encounter procedure Harley Ball DO Work Phone: [facility] Work Phone: Start: 05-28-2024 End: 05-28-2024 ambulatory Harley Ball DO Work Phone: [facility] Work Phone: Start: 05-26-2024 End: 05-26-2024 ambulatory [facility] Start: 05-18-2024 ambulatory [facility] Start: 05-05-2024 Non-patient / Non-visit Benjam in Ball DO Work Phone: [facility] Work Phone: Start: 04-30-2024 End: 04-30-2024 ambulatory [facility] Work Phone: Start: 04-30-2024 End: 04-30-2024 Patient encounter procedure [facility] [facility] Work Phone: Start: 04-21-2024 ambulatory [facility] Start: 04-16-2024 End: 04-16-2024 Patient encounter procedure [facility] Work Phone: Start: 04-02-2024 End: 04-02-2024 Ashley henrilynn Tavera DPM Work Phone: [facility] Start: 04-02-2024 End: 04-02-2024 Ildefonsoboo flowsheet Kenneth Tavera DPM Work Phone: [facility] Start: 04-02-2024 End: 04-02-2024 Patient encounter procedure Kenneth Tavera DPM Work Phone: [facility] Comment on above: 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, without long-term current use of insulin ([facility]) (Primary Dx); Pain due to onychomycosis of toenails of both feet Start: 04-02-2024 End: 04-02-2024 ambulatory KENNETH TAVERA Not Available Start: 03-26-2024 ambulatory [facility] Start: 03-26-2024 Encounter for preprocedural cardiovascular examination [facility] Start: 03-10-2024 End: 03-10-2024 ambulatory [facility] Start: 03-06-2024 ambulatory [facility] Start: 02-24-2024 End: 02-24-2024 Patient encounter procedure [facility] Work Phone: Start: 02-20-2024 ambulatory [facility] Start: 02-18-2024 Non-patient / Non-visit [facility] Work Phone: Start: 02-18-2024 Non-patient / Non-visit [facility] Work Phone: Start: 02-13-2024 Evaluation and management of inpatient YFN [facility] Start: 02-13-2024 Evaluation and management of inpatient BONAVENTURE [facility] Start: 02-13-2024 Evaluation and management of inpatient OSMAN DRISCOLL [facility] Start: 02-13-2024 End: 02-14-2024 Evaluation and management of inpatient HEMALATHA LAGOS [facility] Start: 02-12-2024 Non-patient / Non-visit [facility] Work Phone: Start: 02-12-2024 Non-patient / Non-visit [facility]ician [facility] Work Phone: [...] polyneuropathy, without long-term current use of insulin ([facility]); Pain due to onychomycosis of toenails of both feet Start: 01-23-2024 End: 01-23-2024 ambulatory KENNETH TAVERA Not Available Start: 01-23-2024 End: 01-23-2024 ambulatory [facility] Work Phone: Start: 01-23-2024 End: 01-23-2024 Patient encounter procedure [facility] Work Phone: Start: 01-21-2024 ambulatory [facility] Start: 01-16-2024 ambulatory [facility] Start: 01-10-2024 ambulatory [facility] Start: 01-09-2024 ambulatory [facility] Start: 01-07-2024 End: 01-07-2024 ambulatory [facility] Work Phone: Start: 01-07-2024 End: 01-07-2024 Patient encounter procedure [facility] Work Phone: Start: 12-30-2023 Non-patient / Non-visit [facility] Work Phone: Start: 12-12-2023 End: 12-12-2023 ambulatory [facility] Work Phone: Start: 12-12-2023 End: 12-12-2023 Patient encounter procedure [facility] Physician [facility] Work Phone: Start: 11-28-2023 ambulatory [facility] Start: 11-12-2023 End: 11-12-2023 ambulatory [facility] Start: 11-07-2023 End: 11-07-2023 ambulatory KENNETH TAVERA Not Available Start: 10-17-2023 End: 10-17-2023 ambulatory [facility] Work Phone: Start: 10-17-2023 End: 10-17-2023 Patient encounter procedure [facility] Physician [facility] Work Phone: Start: 09-26-2023 Non-patient / Non-visit [facility] Phys[facility] Work Phone: Start: 09-26-2023 Non-patient / Non-visit [facility] Physician [facility] Work Phone: Start: 08-27-2023 Non-patient / Non-visit [facility] Work Phone: Start: 08-12-2023 End: 08-12-2023 ambulatory [facility] Work Phone: Start: 08-12-2023 End: 08-12-2023 Patient encounter procedure [facility] Work Phone: Start: 07-02-2023 End: 07-02-2023 ambulatory [facility] Work Phone: Start: 07-02-2023 End: 07-02-2023 Patient encounter procedure [facility] Work Phone: Start: 06-24-2023 Non-patient / Non-visit [facility] Work Phone: Start: 06-18-2023 End: 06-18-2023 ambulatory [facility] Work Phone: Start: 06-18-2023 End: 06-18-2023 Patient encounter procedure [facility] Work Phone: Start: 06-13-2023 Non-patient / Non-visit [facility] [employer] [facility] Work Phone: Start: 05-03-2023 End: 05-03-2023 Patient encounter procedure DO Harley Crespo Work Phone: [facility]- Start: 04-30-2023 End: 04-30-2023 ambulatory Kingsley Latisha Other [facility] Other Start: 04-30-2023 Telephone encounter Kingsley Latisha [facility] Start: 04-23-2023 End: 04-23-2023 ambulatory Tondra Mapus Other [facility] Other Start: 04-23-2023 Telephone encounter Tondra Mapus [facility] Start: 03-12-2023 (DM) Diabetes Tondra Mapus [facility] Start: 03-12-2023 End: 03-12-2023 ambulatory DO Harley Crespo Work Phone: [facility] Other Start: 03-12-2023 End: 03-12-2023 Discharged Recurring DO Harley Crespo Work Phone: [facility] Work Phone: Start: 03-12-2023 End: 03-12-2023 Patient encounter procedure DO Harley Crespo Work Phone: [facility] Work Phone: Start: 02-12-2023 End: 02-12-2023 ambulatory Harley Crespo Other [facility] Other Start: 02-12-2023 Telephone encounter Harley Crespo [facility] Start: 02-07-2023 End: 02-07-2023 ambulatory Harley Crespo Other [facility] Other Start: 02-07-2023 Telephone encounter Harley Crespo MONTE[facility] Start: 02-06-2023 End: 02-06-2023 ambulatory Tondra Mapus Other [facility] Other Start: 02-06-2023 Telephone encounter Tondra Mapus [facility] Start: 01-29-2023 End: 01-29-2023 ambulatory Harley Crespo Other [facility] Other Start: 01-29-2023 Telephone encounter Harley Crespo MONTEZ [facility] Start: 01-17-2023 End: 01-17-2023 ambulatory Tondra Mapus Other [facility] Other Start: 01-17-2023 Telephone encounter Tondra Mapus [facility] Start: 01-07-2023 End: 01-07-2023 ambulatory Harley Crespo Other [facility] Other Start: 01-07-2023 Office outpatient vi sit 25 minutes [facility] Start: 01-07-2023 Telephone encounter Harley Crespo MONTEZ [facility] Start: 01-04-2023 End: 01-04-2023 ambulatory Kingsley Latisha Other [facility] Other Start: 01-04-2023 Telephone encounter Kingsley Latisha [facility] Start: 01-01-2023 End: 01-01-2023 ambulatory Kingsley Latisha Other [facility] Other Start: 01-01-2023 Telephone encounter Kingsley Latisha [facility] Start: 12-31-2022 End: 12-31-2022 ambulatory Harley Crespo Other [facility] Other Start: 12-31-2022 Office outpatient vi sit 25 minutes Harley Cherie [facility] Start: 12-31-2022 Telephone encounter Harley Crespo [facility] Start: 12-13-2022 End: 12-13-2022 ambulatory Denita Chairez Other [facility] Other Start: 12-13-2022 Nursing evaluation o f patient and report Denita Mihaela [facility] Start: 11-23-2022 End: 11-23-2022 ambulatory Tondra Mapus Other [facility] Other Start: 11-23-2022 Telephone encounter Tondra Mapus [facility] Start: 10-12-2022 End: 10-12-2022 ambulatory Tondra Mapus Other [facility] Other Start: 10-12-2022 Telephone encounter Tondra Mapus [facility] Start: 10-09-2022 End: 10-09-2022 ambulatory Harley Crespo Other [facility] Other Start: 10-09-2022 Telephone encounter Harley Crespo [facility] Start: 10-01-2022 End: 10-01-2022 ambulatory Harley Crespo Other [facility] Other Start: 10-01-2022 Telephone encounter Harley Crespo [facility] Start: 09-27-2022 End: 09-27-2022 ambulatory Kingsley Latisha Other [facility] Other Start: 09-27-2022 Telephone encounter Kingsley Latisha [facility] Start: 09-26-2022 End: 09-26-2022 ambulatory Harley Crespo Other [facility] Other Start: 09-26-2022 Telephone encounter Harley Crespo [facility] Start: 09-19-2022 End: 09-19-2022 ambulatory Kingsley Latisha Other [facility] Other Start: 09-19-2022 Telephone encounter Kingsley Latisha [facility] Start: 09-12-2022 End: 09-12-2022 ambulatory Harley Crespo Other [facility] Other Start: 09-12-2022 Telephone encounter Harley Crespo [facility] Start: 09-03-2022 End: 09-03-2022 ambulatory Harley Crespo Other [facility] Other Start: 09-03-2022 Telephone encounter Harley Cherie [facility] Start: 08-31-2022 End: 08-31-2022 ambulatory Harley Cherie Other [facility] Other Start: 08-31-2022 Office outpatient vi sit 25 minutes Harley Cherie [facility] Start: 08-10-2022 End: 08-10-2022 ambulatory Harley Cherie Other [facility] Other Start: 08-10-2022 Telephone encounter Harley Cherie [facility] Start: 08-09-2022 End: 08-10-[address] HARLEY CRESPO [facility] [address] Other Start: 08-09-2022 Telephone encounter Kingsley Latisha [facility] Start: 07-02-2022 End: 07-02-2022 ambulatory Kingsley Latisha Other [facility] Other Start: 07-02-2022 Office outpatient vi sit 25 minutes Kingsley Latisha [facility] Start: 06-28-2022 End: 06-28-2022 ambulatory Harley Crespo Other [facility] Other Start: 06-28-2022 Patient encounter procedure Harley Crespo [facility] Start: 06-26-2022 (DM) Diabetes Tondra Mapus [facility] Start: 06-26-2022 End: 06-26-2022 ambulatory Tondra Mapus Other [facility] Other Start: 06-25-2022 End: 06-26-2022 ambulatory KINGSLEY LATISHA Facility:[facility] Start: 06-18-2022 End: 06-19-2022 ambulatory TONDRA MAPUS Facility:[facility] Start: 06-05-2022 End: 06-06-[address] HARLEY CRESPO Facility:[facility] Start: 05-26-2022 End: 05-26-2022 ambulatory Harley Crespo Other [facility] Other Start: 05-26-2022 Telephone encounter Harley Crespo [facility] Start: 05-25-2022 End: 05-25-2022 ambulatory Tondra Mapus Other [facility] Other Start: 05-25-2022 Telephone encounter Tondra Desireeus [facility] Start: 05-03-2022 End: 05-04-[address] PINKY BISHOP Facility:[facility] Start: 04-18-2022 End: 04-19-[address] PINKY BISHOP Facility:[facility] Start: 03-22-2022 End: 03-23-[address] HIGINIO FLANAGAN Facility:[facility] Start: 03-20-2022 (DM) Diabetes Tondra Mapus [facility] Start: 03-20-2022 End: 03-20-2022 ambulatory Tondra Mapus Other [facility] Other Start: 03-12-2022 End: 03-13-2022 Evaluation and management of inpatient DR PARUL CHU Facility:[facility] Start: 03-09-2022 End: 03-10-[address] SHANNON LANDIS Facility:[facility] Start: 03-02-2022 End: 03-03-[address] HARLEY CRESPO Facility:[facility] Start: 02-19-2022 End: 02-19-2022 ambulatory Tondra Mapus Other [facility] Other Start: 02-19-2022 Telephone encounter Tondra Mapus [facility] Start: 02-08-2022 End: 02-08-2022 ambulatory Tondra Mapus Other [facility] Other Start: 02-08-2022 Telephone encounter Tondra Map[facility] Start: 01-15-2022 End: 01-17-2022 Evaluation and management of inpatient DO Harley Crespo Work Phone: [facility] [place] [facility] Start: 01-15-2022 End: 01-15-[address] HARLEY CRESPO Facility:[facility] Start: 12-18-2021 Registered Recurring DO Zamudio in [place] Work Phone: [facility] Start: 12-18-2021 (DM) Diabetes Tondra Mapus [facility] Start: 12-18-2021 End: 12-18-2021 ambulatory Tondra Mapus Other [facility] Other Start: 12-08-2021 End: 12-09-[address] HARLEY CRESPO Facility:[facility] Start: 11-30-2021 End: 12-01-2021 ambulatory KINGSLEY GOLDENR Facility:[facility] Start: 11-24-2021 End: 11-25-[address] HARLEY CRESPO Facility:[facility] Start: 11-16-2021 End: 11-16-2021 ambulatory Tondra Mapus Other [facility] Other Start: 11-16-2021 Telephone encounter Tondra Mapus [facility] Start: 2021 End: 2021 ambulatory Tondra Mapus Other [facility] Other Start: 2021 Telephone encounter Tondra Mapus [facility] Start: 10-31-2021 End: 10-31-2021 ambulatory Tondra Mapus Other [facility] Other Start: 10-31-2021 Telephone encounter Tondra Mapus [facility] Start: 10-27-2021 End: 10-27-2021 [...] 07-24-2021 End: 07-24-2021 ambulatory Tondra Mapus Other [facility] Other Start: 07-24-2021 Telephone encounter Tondra Mapus [facility] Start: 07-17-2021 (DM) Diabetes Tondra Mapus [facility] Start: 07-17-2021 End: 07-17-2021 ambulatory Tondra Mapus Other [facility] Other Start: 06-19-2021 End: 06-19-2021 ambulatory Shannon Escobar Other [facility] Other Start: 06-19-2021 Telephone encounter Shannon Escobar [facility] Start: 06-06-2021 End: 06-06-2021 ambulatory Kingsley Latisha Other [facility] Other Start: 06-06-2021 Office outpatient vi sit 25 minutes Kingsley Latisha [facility] Start: 05-22-2021 End: 05-22-2021 ambulatory Tondra Mapus Other [facility] Other Start: 05-22-2021 Telephone encounter Tondra Mapus [facility] Start: 05-16-2021 End: 05-16-2021 ambulatory Tondra Mapus Other [facility] Other Start: 05-16-2021 Telephone encounter Tondra Mapus [facility] Start: 04-10-2021 (DM) Diabetes Tondra Mapus [facility] Start: 04-10-2021 End: 04-10-2021 ambulatory Tondra Mapus Other [facility] Other Start: 04-10-2021 Telephone encounter Tondra Mapus [facility] Start: 02-14-2021 End: 02-14-2021 ambulatory Kingsley Latisha Other [facility] Other Start: 02-14-2021 Patient encounter procedure Kingsley Latisha [facility] Start: 02-14-2021 Telephone encounter Tondra Mapus [facility] Start: 01-03-2021 (DM) Diabetes Arlen Kwong [facility] Start: 10-14-2018 End: 10-15-2018 Patient encounter procedure PINKY BISHOP Facility:[facility] Start: 02-24-2018 End: 02-25-2018 Evaluation and management of inpatient PINKY BISHOP Facility:[facility] Procedures Date Procedure Procedure Detail [...] Screening for malign ant neoplasm of colon [facility] Start: 09-24-2024 End: 09-24-2024 Patient encounter procedure 09/24/2024 8:40 AM EDT Office Visit [facility] [address] [facility] [address] [place] [address] Kenneth Tavera DPM [address] [facility] [address] [place] [address] Diabetes 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, without long-term current use of insulin (HCC) (Primary Dx); Pain due to onychomycosis of toenails of both feet; Xerosis cutis [facility] Comment on above: 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, without long-term current use of insulin (HCC) (Primary Dx); Pain due to onychomycosis of toenails of both feet; Xerosis cutis Start: 08-27-2024 Urine culture [facility] Start: 07-27-2024 Patient referral [facility] Work Phone: Start: 07-14-2024 Patient referral [facility] Work Phone: Start: 07-07-2024 Urine culture [facility] Start: 06-11-2024 End: 06-11-2024 Patient encounter procedure 06/11/2024 11:50 AM EDT Office Visit [facility] [address] [place] [address] Kenneth Tavera DPM [address] [facility] [address] [place] [address] [facility] Start: 04-02-2024 End: 04-02-2024 Patient encounter procedure [facility] Comment on above: 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, without long-term current use of insulin (CMS/HCC) (Primary Dx); Pain due to onychomycosis of toenails of both feet Start: 01-23-2024 End: 01-23-2024 Patient encounter procedure 01/23/2024 11:30 AM EDT Office Visit [facility] [address] [facility] [address] [place] [address] Kenneth Tavera DPM [address] [address] Diabetes mellitus due to underlying condition with [...] feet Start: 10-26-2023 DIABETES SCREEN DIABETES SCREEN [facility] Start: 10-17-2023 Patient referral [facility] Work Phone: Start: 08-16-2023 Screening for malign ant neoplasm of colon FIT-DNA [facility] Start: 01-17-2022 [facility] Start: 01-17-2022 Radionuclide myocard ial perfusion stress study NM rachel perf SPECT rest & str [facility] Start: 01-17-2022 Referral to cardiac rehabilitation program [facility] Start: 01-16-2022 Hospital admission [facility] Start: 01-15-2022 Hospital admission [facility] Start: 11-30-2021 Influenza vaccination INFLUENZA (#1) [facility] Start: 10-24-2021 End: 12-24-2021 CBC W Auto Differential panel - Blood CBC + DIFF Lab Routine Monoclonal gammopathy Expected: 10/24/2021, Expires: 12/24/2021 [facility] Work Phone: Comment on above: Expected: 10/24/2021 , Expires: 12/24/2021 Start: 04-25-2021 Adult depression screening assessment DEPRESSION SCREENING [facility] Start: 04-01-2021 ADVANCE DIRECTIVE DISCUSSION ADVANCE DIRECTIVE DISCUSSION [facility] Start: 11-21-2020 COVID-19 VACCINE (3 - Booster for Pfizer series) COVID-19 VACCINE (3 - Booster for Pfizer series) [facility] Start: 11-07-2001 SHINGRIX VACCINE (1 of 2) SHINGRIX VACCINE (1 of 2) [facility] Start: 11-07-1996 COLOGUARD (FIT-DNA) COLOGUARD (FIT-D NA) [facility] Start: 11-07-1996 Colonoscopy COLONOSCOPY [facility] Start: 11-07-1996 COLORECTAL CANCER SCREENING COLORECTAL CANCER SCREENING [facility] Start: 11-07-[address] COLONOGRAPHY [facility] Start: 11-07-1996 FECAL OCCULT BLOOD FECAL OCCULT BLOO D [facility] Start: 11-07-1996 SIGMOIDOSCOPY SIGMOIDOSCOPY [facility] Start: 11-07-1986 LIPID SCREEN LIPID SCREEN [facility] Start: 11-07-1970 Urine microalbumin profile DTAP,TDAP,TD (1 - Tdap) [facility] Start: 11-07-1969 HEPATITIS C SCREENING HEPATITIS C SC APURVA [facility] Start: 1950 ABDOMINAL AORTIC ANEURYSM SCREENING ABDOMINAL AORTIC ANEURYSM SCREENING [facility] Start: 1950 Screening for malign ant neoplasm of colon [facility] Comprehensive metabo lic 1999 panel - Serum or Plasma [facility] Comprehensive metabo lic 1999 panel - Serum or Plasma [facility] CT Abdomen and Pelvi s WO contrast [facility] CT Abdomen and Pelvi s WO contrast [facility] Patient Education [facility] Work Phone: Patient referral [facility] Work Phone: Renal function 1999 panel - Serum or Plasma [facility] Renal function 1999 panel - Serum or Plasma [facility] Renal function 1999 panel - Serum or Plasma [facility]rine culture [facility] Immunizations Immunization Date Immunization Notes Care Provider Poli patel 12-12-2023 influenza virus vaccine, unspecified formulation Jason CHAYA [facility] 12-12-2023 influenza, high dose seasonal, preservative-free [facility] 12-13-2022 influenza, high dose seasonal, preservative-free Denita Chairez Other [employer] [facility] [place] Other 12-13-2022 influenza virus vaccine, unspecified formulation DO Harley Crespo Work Phone: [facility] 12-15-2021 influenza virus vaccine, unspecified formulation DO Harley Crespo Work Phone: [facility] 12-15-2021 influenza, high dose seasonal, preservative-free Harley Crespo Other [employer] [facility] [place] Other 02-21-2021 COVID-19 mRNA, Comirnaty (Pfizer) DO Harley Crespo Work Phone: [facility] 06-21-2020 COVID-19 Vaccine Pfi zer - Documentation Purposes Only Arlen Kwong Other [facility] 05-30-2020 COVID-19 Vaccine Pfi zer - Documentation Purposes Only Arlen Kwong Other [facility] 01-17-2018 influenza virus vaccine, unspecified formulation Jason LARKIN [facility] 01-17-2018 pneumococcal polysaccharide vaccine, 23 valent Abdon Walker MD Work Phone: [facility] 01-17-2018 Seasonal trivalent influenza vaccine, adjuvanted, preservative free Abdon Walker MD Work Phone: [facility] 01-16-2017 influenza virus vaccine, unspecified formulation Jason LARKIN [facility] 01-16-2017 influenza, high dose seasonal, preservative-free Abdon Walker MD Work Phone: [facility] 11-30-2016 influenza virus vaccine, unspecified formulation Jason LARKIN [facility] 11-30-2016 influenza, injectabl e, quadrivalent, preservative free Abdon Walker MD Work Phone: [facility] 11-14-2016 pneumococcal conjuga te vaccine, 13 valent Abdon Walker MD Work Phone: [facility] 04-02-2016 pneumococcal polysaccharide vaccine, 23 valent Arlen Kwong Other [facility] 01-23-2012 influenza virus vaccine, unspecified formulation Jason LARKIN [facility] 01-23-2012 influenza, seasonal, injectable Abdon Walker MD Work Phone: [facility] 12-13-2010 influenza virus vaccine, unspecified formulation Jason LARKIN [facility] 12-13-2010 influenza, seasonal, injectable Abdon Walker MD Work Phone: [facility] 01-27-2009 novel [id number], preservative-free, injectable Abdon Walker MD Work Phone: [facility] 01-19-2008 influenza virus vaccine, whole virus Abdon Walker MD Work Phone: [facility] 01-19-2008 influenza, whole Jason EZ ERS [facility] Payers Date Payer Category Payer Self-pay [id number] 2021 Unknown [id number] 2021 Private Health Insurance [employer] [id number] 2019 Unknown MMO MMO MEDICARE SUPPLEMENT [id number] 2019-Present [phone] [address] [place] [address] Indemnity [id number] 2016 Medicare MEDICARE MEDICAR E A AND B [id number] 2016-Present [phone] [address] [address] [place] [address] Medicare [id number] 2016 Medicare [id number] 1959 Medicare [id number] 1958 Unknown [id number] 2.16.840.1.792380.19 1950 Unknown [id number] 2.16.840.1.957870.3.579.2. 647 1950 Unknown [id number] 2.16.840.1.839299.3.579.2. 647 1950 Unknown [id number] 2.16.840.1.522735.3.579.2. 593 1950 Unknown [id number] 2.16.840.1.800380.3.579.2. 593 1950 Unknown [id number] 2.16.840.1.587982.3.579.2. 593 1951 Unknown [id number] 2.16.840.1.807088.3.579.2. 593 1951 Unknown [id number] 2.16.840.1.265522.3.579.2. 593 1951 Unknown [id number] 2.16.840.1.113431.3.579.2. 593 1951 Unknown [id number] 2.16.840.1.902280.3.579.2. 593 1951 Unknown [id number] 2.16.840.1.972468.3.579.2. 593 1951 Unknown [id number] 2.16.840.1.535165.3.579.2. 593 1951 Unknown [id number] 2.16.840.1.952405.3.579.2. 593 1951 Unknown [id number] 2.16.840.1.577084.3.579.2. 593 1951 Unknown [id number] 2.16.840.1.827303.3.579.2. 593 1951 Unknown [id number] 2.16.840.1.288511.3.579.2. 593 1951 Unknown [id number] 2.16.840.1.489073.3.579.2. 593 1951 Unknown [id number] 2.16.840.1.302104.3.579.2. 593 1951 Unknown [id number] 2.16.840.1.779837.3.579.2. 593 1951 Unknown [id number] 2.16.840.1.381522.3.579.2. 593 1951 Unknown [id number] 2.16.840.1.288072.3.579.2. 593 1951 Unknown [id number] 2.16.840.1.443070.3.579.2. 727 1950 Unknown [id number] 2.16.840.1.383075.3.579.2. 727 1951 Unknown [id number] 2.16.840.1.554165.3.579.2. 727 1950 Unknown [id number] 2.16.840.1.971182.3.579.2. 1259 1951 Unknown [id number] 2.16.840.1.502352.3.579.2. 1259 1951 Unknown [id number] 2.16.840.1.079817.3.579.2. 1259 1951 Unknown [id number] 2.16.840.1.145134.3.579.2. 1259 1950 Unknown [id number] 2.16.840.1.156159.3.579.2. 1259 Unknown [id number] Unknown HCAP/HFA/FAP Active [id number] HCAP/HFA/FAP Active [id number] Unknown [id number] 2.16.840.1.694666.3.579.2. 531 Unknown [id number] 2.16.840.1.507846.3.579.2. 531 Unknown [id number] 2.16.840.1.895595.3.579.2. 531 Unknown [id number] 2.16.840.1.704799.3.579.2. 531 Social History Date Type Detail Facility Unknown if ever smoked [facility] Other Start: 11-07-2023 End: 06-18-2024 Sex Assigned At [facility] Other Start: 09-29-2021 End: 05-28-2024 Tobacco smoking status Ex-smoker (finding) [facility] Tobacco smoking status Never [facility] Start: 07-23-2018 End: 10-12-2022 Tobacco use and exposure Smokeless tobacco non-user [facility] Start: 10-25-2020 Alcohol intake Ex-drinker (finding) [facility] Start: 1950 Sex Assigned At Not on file [facility] Start: 1950 Sex Assigned At Male F [facility] Start: 10-12-2022 Tobacco smoking stat us NHIS Never smoked tobacco [facility] Start: 11-07-2023 End: 09-24-2024 Alcoholic beverage intake Defer [facility] Start: 11-07-2023 End: 06-18-2024 History of Social function [facility] Start: 04-30-2024 End: 08-28-2024 Sex Male (finding) [facility] Sexual Orientation [facility] Medical Equipment Procedure Code Equipment Code Equipment [...] 07-12-2020 Pen Needle, Diab etic (Bd Ultra-Fine Latoay Pen Needle) 32 gauge x 5/32 needle [...] Assessment Result Facility 08-04-2024 Functional Status N/A [facility] [place] 01-17-2022 Functional status Patient at Baseline [facility] Work Phone: 09-29-2021 Functional Status N/A [facility] Mental Status Date Assessment Result Facility 01-17-2022 Cognitive function Cognitive Sta tus Patient at Baseline [facility] Work Phone: Clinical Notes 01-03-2021 to 10-08-2024 Kenneth Tavera, JULES - 09/24/2024 8:40 AM EDT Note Date & Type Note Facility 10-08-2024 Note [facility] Cardiology Clinic Note Chief Complaint: Patient here for 2 month follow up . Patient states he has been feeling rough. Patient states he had and OH in July then diagnosed with cancer in [...] mildly elevated troponin. Patient was transferred to [facility] for further evaluation and treatment. [...] defibrillator procedure, and Third degree heart block ([facility] [place] [...] 75 mg tablet, (more content not included)... [facility] 10-06-2024 Note Patient was here tod ay [...] go to the ER. Patient verbalized understanding. [facility] 09-29-2024 Note Patient: Lani Quintanilla ed Procedure Summary Date: 09/29/24 Room / Location: [facility] OPERATING ROOM 07 / [facility] Operating Room Anesthesia Start: 1337 Anesthesia Stop: [...] no known notable events for this encounter. [facility] 09-29-2024 Note Satisfactory for dominic luation. Examination of the ThinPrep slide reveals atypical cells, urothelial cells, abundant acute inflammation, blood, fungal spores consistent with Coretta species and debris. [facility] Comment on above: Order Comment: Pre-o p diagnosis:Lesion of bladder [N32.9] Performed By: #### L AB13 ####[facility] ([facility])[address] [place] [address] 09-29-2024 Note Spinal Block Patient location during procedure: OR Start time: 09/29/2024 1:45 PM End time: 09/29/2024 1:55 PM Reason for block: primary anesthetic Staffing Performed: resident/SENIOR JAVASCRIPT ENGINEER/CAA Anesthesiologist: Dorcas Dang MD Resident/SENIOR JAVASCRIPT ENGINEER: Mirela Devlin MD Performed by: Mirela Devlin [...] tolerated procedure well with no immediate complications [facility] 09-29-2024 Note Patient: Lani Quintanilla ed Procedure Information Date/Time: 09/29/24 1230 Procedure: TURBT (TRANSURETHRAL RESECTION OF BLADDER TUMOR) Location: [facility] OPERATING ROOM 07 / [facility] Operating Room Surgeons: Last Mcmanus MD Relevant Problems Cardio (+) AV block, 3rd degree (CMS/HCC) (+) Angina at rest (+) Carotid stenosis, asymptomatic (+) Coronary artery disease involving [place] coronary artery of [place] heart (+) Essential hypertension (+) NSTEMI (non-ST elevated myocardial infarction) ([facility]) (+) Stenosis of abdominal aorta Endo (+) Type 1 diabetes mellitus ([facility]/HCC) (+) Type 2 diabetes mellitus with hyperglycemia ([facility]) (+) Type 2 diabetes mellitus without complication, with long-term current use of insulin ([facility]) GI (+) Gastroesophageal reflux disease /Renal (+) Chronic kidney disease Circulatory (+) HFrEF (heart failure with reduced ejection fraction) ([facility]) (+) History of coronary artery bypass surgery Clinical information reviewed: Allergies Meds Med Hx Surg Hx Surgical History[1] Medical History[2] Medication Documentation Review Audit Reviewed by Judy Avila, RN (Registered Nurse) on 09/29/24 at 1059 Medication Order Taking? Sig Documenting Provider Last Dose Status ALPRAZolam (Xanax) 0.5 mg tablet [id number] Yes Take 1 tablet by mouth in the morning, afternoon, and at bedtime. Racquel Marcelo MD 09/29/2024 Active amLODIPine (Norvasc) 5 mg tablet [id number] Yes Take 1 tablet (5 mg) by mouth in the morning. Pinky Bishop MD 09/29/2024 Active aspirin 81 mg chewable tablet [id number] Yes Chew 1 tablet every day by oral route. Racquel ProviderMD Past Week Active cholecalciferol (Vitamin D3) 25 MCG (1000 units) tablet [id number] Yes Take 1,000 Units by mouth in the morning. Racquel Marcelo MD 09/28/2024 Active clopidogrel (Plavix) 75 mg tablet [id number] Yes Take 1 tablet by mouth in the morning. Racquel ProviderMD Past Week Active docusate sodium (Colace) 100 mg capsule [id number] Yes Take 100 mg by mouth in the morning. Racquel Marcelo MD 09/28/2024 Active empagliflozin (Jardiance) 10 mg [id number] Yes Take 1 tablet every day by oral route. Racquel Marcelo MD 09/29/2024 Active insulin aspart (NovoLOG) 100 unit/mL injection vial [id number] Yes Inject 10 Units under the skin with breakfast, with lunch, and with evening meal. Sliding scale Racquel Marcelo MD 09/28/2024 Active insulin degludec (TRESIBA FLEXTOUCH U-100 SUBQ) [id number] Yes Inject 15 Units under the skin in the morning. Racquel Marcelo MD 09/29/2024 Active insulin detemir (Levemir) 100 unit/mL injection [id number] Yes Inject 5 Units under the skin two times daily. SLIDING SCALE Racquel Marcelo MD 09/29/2024 Active isosorbide mononitrate ER (Imdur) 60 mg 24 hr tablet [id number] Take 1 tablet (60 mg) by mouth 2 times daily. Carlos A Duarte MD 08/20/24 9913 levoFLOXacin (Levaquin) 250 mg tablet [id number] Yes Racquel Marcelo MD 09/29/2024 Active metoprolol succinate XL (Toprol-XL) 50 mg 24 hr tablet [id number] Take 3 tablets (150 mg) by mouth in the morning for 97 doses. Do not crush or chew. Aramis Sellers MD 08/20/24 2359 nitroglycerin (Nitrostat) 0.4 mg SL tablet [id number] No PLACE 1 TABLET UNDER TONGUE EVERY 5 MINS, UP TO 3 DOSES NEEDED FOR CHEST PAIN Patient not taking: Reported on 09/29/2024 Pinky Bishop MD More than a month Active pantoprazole (ProtoNix) 40 mg EC tablet [id number] Yes TAKE 1 TABLET BY MOUTH DAILY ON AN EMPTY STOMACH FOLLOWED BY BREAKFAST 30 MINUTES AFTER Historical ProviderMD 09/29/2024 Active ranolazine (Ranexa) 500 mg 12 hr tablet [id number] Yes Take 1 tablet (500 mg) by mouth two times daily. Do not crush, chew, or split. Pinky Bishop MD 09/29/2024 Active rosuvastatin (Crestor) 40 mg tablet [id number] Yes TAKE 1 TABLET BY MOUTH AT BEDTIME Kevin Arteaga MD 09/29/2024 Active spironolactone (Aldactone) 25 mg tablet [id number] Yes Take 1 tablet (25 mg) by mouth in the morning. Pinky Bishop MD 09/29/2024 Active thiamine (Vitamin B-1) 100 mg tablet [id number] Yes Take 100 mg by mouth every other day. Historical ProviderMD 09/28/2024 Active thiamine (Vitamin B-1) 250 mg tablet [id number] Yes Take 250 mg by mouth every [...] (H) 02/13/2024 INR (more content not included)... [facility] 09-29-2024 Note H&P reviewed. The jaron mark was examined and there are no changes to the H&P. [facility] 09-24-2024 History of Present illness Narrative Patient: [...] Date Diabetic retinopathy (HCC) HTN (hypertension) Hypercholesteremia OH (myocardial infarction) (HCC) 2021 Two total: 02/20, [...] in the morning., Disp: , Rfl: HYDROcodone-acetaminophen ([place]) 5-325 MG tablet, TAKE 1 TABLET BY [...] Risk (08/13/2024) Received from [facility] Overall Financial Resource Strain (CARDIA) Difficulty of Paying Living Expenses: Not hard at all Food Insecurity: No Food Insecurity (08/13/2024) Received from [facility] Hunger Vital Sign Within the past 12 months, you worried that your food would run out before you got the money to buy more.: Never true Ran Out of Food in the Last Year: Not on file Transportation Needs: No Transportation Needs (08/13/2024) Received from [facility] Transportation In the past 12 months, has lack of transportation kept you from medical appointments or from getting medications?: No Lack of Transportation (Non-Medical): Not on file Physical Activity: Not on file Stress: Not on file Social Connections: Not on file Intimate Partner Violence: Unknown (08/13/2024) Received from [facility] Humiliation, Afraid, Rape, and Kick questionnaire Fear of Current or Ex-Partner: No Emotionally Abused: Not on file Physically Abused: Not on file Sexually Abused: Not on file Housing Stability: Low Risk (08/13/2024) Received from [facility] Housing Stability Vital Sign In the last 12 months, was there a time when you were not able to pay the mortgage or rent on time?: No Number of Times Moved in the Last Year: Not on file At any time in the past 12 months, were you homeless or living in a mcfp (including now)?: No ROS: General: denies fever, [...] and negative PT pedal pulses NEURO: 5.07 [place] Chun monofilament test diminished to digits and [...] Kenneth Tavera DPM documented in this encounter [facility] 08-28-2024 Note [facility] Department of Urology Clinic CONSULTATION Reason for [...] significant pain. He was therefore referred to [facility] where he underwent a cystoscopy with [...] Needs: No Tr (more content not included)... [facility] 08-20-2024 Note [facility] Cardiology Clinic Note Chief Complaint: Patient here for follow up [facility] for an [place] and bladder surgery clearance. Patient states he [...] mildly elevated troponin. Patient was transferred to [facility] for further evaluation and treatment. [...] , Rfl: isosor (more content not included)... [facility] 08-14-2024 Note Hospital Medicine Discharge Summary [...] mildly elevated troponin. Patient was transferred to [facility] for further evaluation and treatment. [...] Center 08/20/2024 9:45 AM Pinky Bishop MD [facility] 08/28/2024 8:30 AM Last Mcmanus MD [facility] URO Second Fl Your medication [...] Medications These medications were sent to [facility] - [place], [place] - [address] [place] [address], [facility] [address] amLODIPine 5 mg tablet Lani has No Known Allergies. Disposition: Home or Self Care () Discharge Condition: Stable Code Status: Prior Diagnostic Results Hematology: Results from last 7 days Lab Units 08/13/24 1421 WBC AUTO 10*3/uL 7.62 HEMOGLOBIN g/dL 13.1 HEMATOCRIT % 39.8 MCV fL 89.0 PLATELETS AUTO 10*3/uL 201 Chemistry: Results from last 7 days Lab Units (more content not included)... [facility] 08-14-2024 Note Adult Nutrition Asse ssment: [...] of Nutrition and Dietetics (AND) and the [place] Society of Enteral and Parenteral Nutrition (ASPEN). [...] difference between simp (more content not included)... [facility] 08-14-2024 Note 08/14/24 1204 Admission Assessment [...] Interested Does the patient have a case planner assigned to them through their insurance? No [...] to send link and activate MyChart? No [facility] 08-14-2024 Note Attestation signed by Tatianna Urrutia [...] see Dr. Bishop, do cardiac rehab at [facility] and if he has uncontrolled chest pain [...] edema. Left lower (more content not included)... [facility] 08-13-2024 Note Recent cystoscopy fo [facility] CODE STATUS full code [facility] 08-13-2024 Note On antiplatelet agen t watch for hematuria and follow [facility] 08-13-2024 Note As above [facility] 08-13-2024 Note Decongestive breath/ guideline directed medical therapy limited because of renal function watch creatinine electrolytes especially potassium intake and output [facility] 08-13-2024 Note [facility] Avoid hypovolemia an d nephrotoxic meds hold lisinopril since patient on Aldactone watch potassium electrolyte creatinine renal function consider nephrology consult [facility] 08-13-2024 Note Chest pain-free, cyc le troponin telemetry continue statin aspirin nitrates beta-jason watch for hypotension and bradycardia cardiology to see patient [facility] 08-13-2024 Note Hospital Medicine History and Physical 08/13/2024 1:16 PM THE HOSPITALIST TEAM PREFERS TO USE [employer] FOR NON-URGENT COMMUNICATION 7AM-7PM. IF I DO NOT RESPOND WITHIN 20 MINUTES OR URGENT MATTERS, PLEASE CALL THROUGH THE HEAD OF CYTOGENETICS. FROM 7PM-7AM, PLEASE PAGE [phone](COVR). Chief Complaint No chief complaint on file. History of Present Illness Lani Lizama is an 73 y.o. male 73 years old white male transferred from [facility] with intermittent chest pain anterior chest [...] basal and postprandial insulin. His labs from [facility] reveals patient having chronic kidney disease [...] HFrEF (heart failure with reduced ejection fraction) ([facility]) Decongestive breath/guideline directed medical therapy limited because of renal function watch creatinine electrolytes especially potassium intake and output Coronary artery disease involving [place] coronary artery of [place] heart As above Chronic kidney disease Avoid hypovolemia and nephrotoxic meds hold lisinopril since patient on Aldactone watch potassium electrolyte creatinine renal function consider nephrology consult Type 2 diabetes mellitus without complication, with long-term current use of insulin ([facility]) Insulin blood sugar check diet Angina at rest As above Gross hematuria On antiplatelet agent watch for hematuria and follow Bladder cancer ([facility]) Recent cystoscopy follows urology CODE STATUS full code VTE Prophylaxis: Heparin subcutaneous watch for bleed ----- Focus of this inpatient stay will remain on problems that need acute care setting for care. We will review available studies and will order additional labs, imaging and other studies as appropriate. As need (more content not included)... [facility] 08-04-2024 Hospital Discharge instructions Patient Education [...] Up Care 08/03/2024 14:29:05 With:Jason LARKIN Address: [address] [place], [place] [id number] [facility] (1) When: Unknown Comments:Office will call to schedule follow up [facility] 08-04-2024 Note Patient Education Custom Cystoscopy ??? [...] including vitamins, herbs, eye drops, creams, and pamh-vtl-ycpqfna medicines. ??? Any problems you or family [...] tells you to take them. ??? Taking rqyx-nzu-xffsqrx medicines, vitamins, herbs, and supplements. Tests You [...] these instructions at home: Medicines ??? Take iefq-nfl-tdoqfcj and prescription medicines only as told by [...] HLD (hyperlipidemia) deleted August 03, 2024 9:17am [facility] Work Phone: 1(112) 399-280604-15-2025 Evaluation note* Diagnosis Onset Date Resolution Status [...] diabetic retinopathy acute August 25, 2024 11:31am [facility] Work Phone: 1(605) 839-552501-30-2025 Evaluation note* Diagnosis Onset Date Resolution Status [...] h hyperglycemia acute July 27, 2024 11:19am [facility] Work Phone: 1(662) 784-282601-16-2025 Evaluation note* Diagnosis Onset Date Resolution Status Admit Date Chronic HFrEF (heart failure with reduced ejection fraction) acute 2024 8:19am Chronic kidney disease acute [place] 2024 8:19am HTN (hypertension) acute 2024 8:19am [...] 2024 9:21am HLD (hyperlipidemia) deleted 2024 9:21am [facility] Work Phone: 1(603) 703-891101-16-2025 Evaluation note* Diagnosis Onset Date Resolution Status [...] kidney disease acute July 14, 2024 9:36am [facility] Work Phone: 1(772) 550-952701-02-2025 History of Present illness Narrative* Kenneth Tavera, [...] retinopathy (CMS/HCC) HTN (hypertension) (CMS/HCC) Hypercholesteremia (CMS/HCC) [place] (myocardial infarction) (CMS/HCC) 2021 Two total: 02/20, [...] in the morning., Disp: , Rfl: HYDROcodone-acetaminophen ([place]) 5-325 MG tablet, TAKE 1 TABLET BY [...] Risk (02/13/2024) Received from [facility] Overall Financial Resource Strain (CARDIA) Difficulty of Paying Living Expenses: Not very hard Food Insecurity: No Food Insecurity (02/13/2024) Received from [facility] Hunger Vital Sign Within the past 12 months, you worried that your food would run out before you got the money to buymore.: Never true Ran Out of Food in the Last Year: Not on file Transportation Needs: No Transportation Needs (02/13/2024) Received from [facility] Transportation In the past 12 months, has lack of transportation kept you from medical appointments or from getting medications?: No Lack of Transportation (Non-Medical): Not on file Physical Activity: Not on file Stress: Not on file Social Connections: Not on file Intimate Partner Violence: Unknown (02/13/2024) Received from [facility] Humiliation, Afraid, Rape, and Kick questionnaire Fear of Current or Ex-Partner: No Emotionally Abused: Not on file Physically Abused: Not on file Sexually Abused: Not on file Housing Stability: Low Risk (02/13/2024) Received from [facility] Housing Stability Vital Sign In the last 12 months, was there a time when you were not able to pay the mortgage or rent on time?: No Number of Times Moved in the Last Year: Not on file At any time in the past 12 months, were you homeless or living in a mcfp (including now)?: No ROS: General: denies fever, [...] and negative PT pedal pulses NEURO: 5.07 [place] Chun monofilament test diminished to digits and forefoot bilaterally 125Hz tuning fork diminished to 1st MPJ bilaterally ORTHO: Positive pain on palpation to nails 1 through 10 ASSESSMENT 1. Diabetes 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, without long-term current use of insulin ([facility]) 2. Pain due to onychomycosis of [...] him Kenneth Tavera DPM documented in this encounterSSM [id number] NoteUT Cardiology Consult Note Reason for visit: Complete heart block on event monitor, HFrEF 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%, atrial tachycardia 03/10/24 Patient here for 5 mo follow up bradycardia, complete heart block s/p PPM per Dr. Bishop. He was also admitted to [facility] for NSTEMI last month. Underwent heart cath with Dr. Pena on 02/12. He was started on Ranexa and lisinopril was stopped. Denies chest pain, SOB, and palpitations. Gets lightheaded at times, but no syncopal episodes. 05/07/23 Patient is s/p BiV ICD. 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 patient has got good device threshold. he [...] hypertension. He was recently admitted to [facility] for NSTEMI. Had inpatient stress test and heart cath. Denies SOB but still having chest pain and has taken nitroglycerin a few times for relief. Had CT chest last week s/p discharge. Cardiac catheterization revealed patent bypass grafts and worsening [place] vessel disease. Medications were adjusted. I had [...] vascular disease) (CMS/HCC) Third degree heart block ([facility]) PSH: Past Surgical History: Procedure Laterality Date CARDIAC CATHETERIZATION 07/12/2020 CARDIAC CATHETERIZATION 10/15/2018 CARDIAC CATHETERIZATION 02/24/2018 CARDIAC CATHETERIZATION 09/27/2015 CORONARY ARTERY BYPASS GRAFT CORONARY STENT PLACEMENT SH: Social Determinants of Health Tobacco Use: Low Risk (01/23/2024) Received from [facility] [employer], [facility] Patient History Smoking Tobacco Use: Never Smokeless Tobacco Use: Never Passive Exposure: Not on file Alcohol Use: Not At Risk (03/13/2018) Received from [facility] Frequency of Alcohol Consumption: Never Average [...] Abused: Not on f (more content not included)...[facility] Evaluation note* Diagnosis Onset Date Resolution [...] 2024 9:21am HLD (hyperlipidemia) deleted 2024 9:21am [facility] Work Phone: 1(630) 115-660011-15-2024 NoteHospital Medicine Discharge Summary Final Discharge Diagnosis: [...] y.o. male who came from Transferred from [facility] with NSTEMI with NSTEMI. 71-year-old gentleman [...] procedure on that. Patient was transferred from [facility] to [facility] where he was seen for chest pain that has been going on for most of the day causing him to take nitroglycerin on 5 separate incidences and with intensification of the chest pain at shortening intervals that caused him to call the ambulance. At [facility] workup did show that patient had rising troponins initial 1 was 23 and then 85 isa intensity troponin. There was no mention change on the EKG as was reported to me by the ER physician Dr. Lagos at [facility]. Other workup that was done at [facility] included basic metabolic panel that showed [...] history as above. The ER physician from [facility] had spoken to our marine equipment preservation inspector here who accepted the patient for transfer to [facility] for possible trip to the Bone Worker very early this morning depending on the [...] 40 mg tablet Commonly (more content not included)...[facility] 02-13-2024 NoteHospital Medicine Daily Progress Note - 02/13/2024 8:36 AM; Room: [address] [place] [address] Admission: 02/13/2024 2:53 AM; Length of stay: 0 days THE HOSPITALIST TEAM PREFERS TO USE [employer] FOR COMMUNICATION 7AM-7PM. IF I DO NOT RESPOND WITHIN 15 MINUTES, PLEASE PAGE ME/CALL THROUGH THE HEAD OF CYTOGENETICS. FROM 7PM-7AM, PLEASE PAGE [phone](COVR) Code Status: Full Code Barriers to Discharge: NSTEMI Expected Discharge Date: 2-3 days Discharge Destination: home Overview Patient is seen for evaluation and management of chest pain. Subjective Patient was examined at bedside resting comfortably. He presented overnight to ED after transfer from [place]. He states that he had crushing chest [...] Principal Problem: NSTEMI (non-ST elevated myocardial infarction) ([facility]) Active Problems: Coronary atherosclerosis Essential hypertension History of coronary artery bypass surgery Mixed hyperlipidemia Stage 3 chronic kidney disease ([facility]) Chest pain Type 2 diabetes mellitus with hyperglycemia ([facility]) PVD (peripheral vascular disease) ([facility]) Carotid stenosis, asymptomatic Assessment and Plan Lani Lizama is a 73 year old male with a past medical history of CAD with 9 stents, 5 vessel CABG, HTN, HLD, DM2, third degree AV block with pacemaker/AICD presented as a transfer from [place] ED with worsening crushing, radiating chest pain. Patient is being admitted to [facility] and cardiology has been consulted. [...] subcutaneous, Nightly isosorbide mononitra (more content not included)...[facility]11-14-2024 NoteHospital Medicine History and Physical 02/13/2024 3:40 AM THE HOSPITALIST TEAM PREFERS TO USE [employer] FOR NON-URGENT COMMUNICATION 7AM-7PM. IF I DO NOT RESPOND WITHIN 20 MINUTES OR URGENT MATTERS, PLEASE CALL THROUGH THE HEAD OF CYTOGENETICS. FROM 7PM-7AM, PLEASE PAGE [phone](COVR). Chief Complaint No chief complaint on file. History of Present Illness Lani Lizama is an 73 y.o. male who came from Transferred from [facility] with NSTEMI with NSTEMI. 71-year-old gentleman [...] procedure on that. Patient was transferred from [facility] to [facility] where he was seen for chest pain that has been going on for most of the day causing him to take nitroglycerin on 5 separate incidences and with intensification of the chest pain at shortening intervals that caused him to call the ambulance. At [facility] workup did show that patient had rising troponins initial 1 was 23 and then 85 isa intensity troponin. There was no mention change on the EKG as was reported to me by the ER physician Dr. Lagos at [facility]. Other workup that was done at [facility] included basic metabolic panel that showed [...] history as above. The ER physician from [facility] had spoken to our marine equipment preservation inspector here who accepted the patient for transfer to [facility] for possible trip to the Bone Worker very early this morning depending on the [...] Principal Problem: NSTEMI (non-ST elevated myocardial infarction) ([facility]/HCC) Active Problems: Coronary atherosclerosis Essential hypertension History of coronary artery bypass surgery Mixed hyperlipidemia Stage 3 chronic kidney disease (CMS/HCC) Chest pain Type 2 diabetes mellitus with hyperglycemia (CMS/HCC) PVD (peripheral vascular disease) ([facility]/HCC) Carotid stenosis, asymptomatic Assessment and Plan PLAN OF CARE: 71-year-old gentleman with very profuse history of cardiovascular disease including prior CAD with stents and CABG as well as hypertension and HLD comes seen with acute NSTEMI. Patient is being admitted to [facility] and cardiology has been consulted with possible trip to the Bone Worker at the earliest possible time by cardiology. [...] be -Consult cardiology (done) (more content not included)...[facility]10-24-2024 History of Present illness Narrative* Kenneth [...] has only been using prescribed or recommended cxzk-eii-oinjbnj cream with some improvement. Patient also has longstanding history of multiple MIs and cardiac history Allergies: Allergies Allergen Reactions Other Other Reaction(s): Unknown Received name: Nkda Past Medical History: Past Medical History: Diagnosis Date Diabetic retinopathy (CMS/HCC) HTN (hypertension) (CMS/HCC) Hypercholesteremia (CMS/HCC) OH (myocardial infarction) (CMS/HCC) 2021 Two total: 02/20, [...] in the morning., Disp: , Rfl: HYDROcodone-acetaminophen ([place]) 5-325 MG tablet, TAKE 1 TABLET BY [...] Risk (09/26/2023) Received from [facility] Overall Financial Resource Strain (CARDIA) Difficulty of Paying Living Expenses: Not very hard Food Insecurity: No Food Insecurity (09/26/2023) Received from [facility] Hunger Vital Sign Within the past 12 months, you worried that your food would run out before you got the money to buymore.: Never true Ran Out of Food in the Last Year: Not on file Transportation Needs: No Transportation Needs (09/26/2023) Received from [facility] Transportation In the past 12 months, has lack of transportation kept you from medical appointments or from getting medications?: No Lack of Transportation (Non-Medical): Not on file Physical Activity: Not on file Stress: Not on file Social Connections: Not on file Intimate Partner Violence: Unknown (09/26/2023) Received from [facility] Humiliation, Afraid, Rape, and Kick questionnaire Fear of Current or Ex-Partner: No Emotionally Abused: Not on file Physically Abused: Not on file Sexually Abused: Not on file Housing Stability: Low Risk (09/26/2023) Received from [facility] Housing Stability Vital Sign Unable to [...] and negative PT pedal pulses NEURO: 5.07 [place] Chun monofilament test diminished to digits and forefoot bilaterally 125Hz tuning fork diminished to 1st MPJ bilaterally ORTHO: Positive pain on palpation to nails 1 through 10 ASSESSMENT 1. Diabetes 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, without long-term current use of insulin ([facility]) 2. Pain due to onychomycosis of [...] him Kenneth Tavera DPM documented in this encounterSSM [id number] Evaluation note* Encounter Date Diagnosis Assessment Notes Treatment Notes Treatment Clinical Notes Apr, Chronic HFrEF (heart failure with reduced ejection fraction) (ICD-10 - I50.22) [facility] Other 12-12-2023 Evaluation note* Encounter Date Diagnosis [...] was denied, pt given information on [facility] diabetes discount program instructed to apply order sent for jardiance 10mg once daily 30 day 11 refills *; GTUIERREZ PAP-Novolog/tresib a/Ozempic approved through 03/31/24; 7. Prescriptions [...] to make it easier material was printed [facility] Other 2023 Evaluation note* Encounter Date Diagnosis Assessment Notes Treatment Notes Treatment Clinical Notes Jan, Chronic HFrEF (heart failure with reduced ejection fraction) (ICD-10 - I50.22) [facility] Other 10-09-2023 Evaluation note* Encounter Date Diagnosis [...] Continue statins. Monitor LFTs and lipid profile. [facility] Other 10-06-2023 Evaluation note* Encounter Date Diagnosis Assessment Notes Treatment Notes Treatment Clinical Notes Dec, Ground glass opacity present on imaging of lung (ICD-10 - R91.8) CT: RUL, RML - 12/2022Dec, Pulmonary nodule (ICD-10 - R91.1) CT: 7mm L nodule - 12/2022 [facility] Other 10-03-2023 Evaluation note* Encounter Date Diagnosis Assessment Notes Treatment Notes Treatment Clinical Notes Dec, Stage 3b chronic kidney disease (ICD-10 - N18.32) [facility] Other 10-02-2023 Evaluation note* Encounter Date Diagnosis [...] risk for cerebrovascular and cardiovascular disease. 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 Aug, MCC (current) use of insulin (ICD-10 - Z79.4) [facility] Other 05-11-2023 Evaluation note* Encounter Date Diagnosis Assessment Notes Treatment Notes Treatment Clinical Notes July, Ground glass opacity present on imaging of lung (ICD-10 - R91.8) CT: RML,RUL infiltrate - 12/2021, CT: RML,RUL improved - 03/2022 CT: RML, RUL, GGO improved - 07/2022 [facility] Other 04-03-2023 Evaluation note* Encounter Date Diagnosis [...] D and PTH. Advised low phosphorus diet. [facility] Other 03-30-2023 Evaluation note* Encounter Date Diagnosis [...] reviewed at the office visit. May, intermediate teacher (current) use of insulin (ICD-10 - Z79.4) [...] (ICD-10 - Z12.5) Yearly PSA and ABDELRAHMAN [facility] Other 03-28-2023 Evaluation note* Encounter Date Diagnosis [...] 2. Blood glucose levels stable. According to [employer] cgm download 06/13/2022- 3: Average glucose 190. [...] to make it easier material was printed [facility] Other 02-25-2023 Evaluation note* Encounter Date Diagnosis Assessment Notes Treatment Notes Treatment Clinical Notes May, Abnormality of lung on CXR (ICD-10 - R91.8) [facility] Other 12-20-2022 Evaluation note* Encounter Date Diagnosis [...] 2. Blood glucose levels stable. According to [employer] cgm download 03/07/2022-03/20/20 22: Average glucose 144. [...] last visit, continue with weight loss efforts [facility] Other 11-10-2022 Evaluation note* Encounter Date Diagnosis Assessment Notes Treatment Notes Treatment Clinical Notes Jan, Diabetes mellitus with chronic kidney disease (ICD-10 - E11.22) [facility] Other 10-19-2022 Discharge summary Author Gagan Shahid [facility] January 17, 2022 3:02pm Note Date/Time January 17, 2022 3 :02pm [facility] [address] [place] [address] Discharge Summary Signed Patient: Lani Lizama MR#: [id number] : 1950 Acct:[id number] Age/Sex: 71 / M Adm Date: 2 Loc: Room: [address] [place] [address]: Gagan Shahid DO Copies to: [...] thought this to be indigestion/GERD 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 Cardiac catheterization was undergone on 01/16/2022 showing [...] levels as before. DISCHARGE INSTRUCTIONS FOR CARDIAC LAND INSPECTOR PHONE NUMBER OF YOUR PHYSICIAN: [phone] PROCEDURE: Heart Cath The following instructions have [...] cold, numb, blue or white, call the marine equipment preservation inspector immediately. 4. ACTIVITY: You are advised [...] bottle, follow the instructions on the bottle. [facility] is not responsible for incorrect [...] <Electronically signed by Gagan Shahid DO> 01/17/22 [address] [facility] Work Phone: 1(187) 491-559910-19-2022 Progress note Author Luis Alfredo Borges [facility] January 17, 2022 11:47am Note Date/Time January 17, 2022 1 1:47am [facility] [address] [place] [address] Cardiology Progress Note Signed Patient: Lani Lizama MR#: [id number] : 1950 Acct:[id number] Age/Sex: 71 / M Adm Date: 2 Loc: Room: [address] [place] [address] Type: ADM IN Attending Dr: Gagan Shahid [...] is also notable worsening of the patient's [place] occlusive coronaryheart disease particularly in the microcirculation [...] daily 3. Patient does have a primary marine equipment preservation inspector near his home in [place]. We willschedule him 1 follow-up visit in [facility] for left wrist check and also for counseling and reinforcement/referral to phase 2 monitored cardiac rehabilitation which the patient desires to perform in [place]. 4. Instructed the patient that he can [...] by Luis Alfredo Borges MD> 01/17/22 114 [facility] Work Phone: 1(103) 144-280510-18-2022 Progress note Author Gagan Shahid [facility] January 16, 2022 4:09pm Note Date/Time January 16, 2022 4 :09pm [facility] [address] [place] [address] Hospitalist Progress Note Signed Patient: Lani Lizama MR#: [id number] : 1950 Acct:[id number] Age/Sex: 71 / M Adm Date: 2 Loc: Room: [address] [place] [address] Type: ADM IN Attending Dr: Gagan Shahid [...] Ml Insuln.Pen SUBCUT 01/15/23 21:59 Not Given TID.[facility] Protocol Isosorbide Mononitrate 60 mg 01/16/22 [...] signed by Gagan Shahid DO> 01/16/22 160 [facility] Work Phone: 1(393) 306-494210-18-2022 [facility] Consult note Author Luis Alfredo Borges [facility] January 16, 2022 10:24am Note Date/Time January 16, 2022 1 0:24am [facility] [address] [place] [address] Cardiology Consult Note Signed Patient: Lani Lizama MR#: [id number] : 1950 Acct:[id number] Age/Sex: 71 / M Adm Date: 2 Loc: Room: [address] [place] [address] Type: ADM IN Attending Dr: Gagan Shahid [...] well as history of PCI done here [facility] per Dr. Saldaña in May [...] he activated EMS and was taken to [facility] emergency department. There the patient [...] negative unless noted below or [facility] for [facility]-19?: Yes Medical History (Updated [...] Lymph # (Auto) 1.0 1.6 (1.00-4.8) x10E3/uL [place] # (Auto) 0.4 0.8 (0.0-0.8) x10E3/uL Eos [...] nonspecific abnormality, ST segment, and/or T wave [place], pacemaker, normal Normal tracing: no change compared [...] by Luis Alfredo Borges MD> 01/16/22 1024 [facility] Work Phone: 1(679) 541-746310-17-2022 History and physical note Author Gagan Shahid [facility] January 15, 2022 6:56pm Note Date/Time January 15, 2022 6 :02pm [facility] [address] [place] [address] Hospitalist H&P Signed Patient: Lani Lizama MR#: [id number] : 1950 Acct:[id number] Age/Sex: 71 / M Adm Date: 2 Loc: 3T Room: [address] [place] [address] Type: ADM IN Attending Dr: Gagan Shahid [...] need for cardiovascular evaluation [facility] for further management and cardiology [...] % (Auto) 13.8 % (.) 01/15/22 15:00 [place] % (Auto) 6.1 % (.) 01/15/22 15:00 Eos % (Auto) 0.9 % (.) 01/15/22 15:00 Baso % (Auto) 0.5 % (.) 01/15/22 15:00 Neut # (Auto) 5.6 x10E3/uL (1.8-7.7) 01/15/22 15:00 Lymph # (Auto) 1.0 x10E3/uL (1.00-4.8) 01/15/22 15:00 [place]ill # (Auto) 0.4 x10E3/uL (0.0-0.8) 01/15/22 15:00 [...] <Electronically signed by Gagan Shahid DO> 01/15/22 59[address] [facility] Work Phone: 1(622) 956-921209-19-2022 Evaluation note* Encounter Date Diagnosis Assessment Notes [...] Blood glucose levels above improved. According to [employer] cgm download 12/05/2021- 2: Average glucose 119. [...] last visit, continue with weight loss efforts [facility] Other [id number] Miscellaneous Notes* Telephone Encounter - Vee Day - 10/20/2021 9:42 AM EDT New CBC order. Vee Day documented in [facility] Evaluation note* Encounter Date Diagnosis [...] Blood glucose levels above improved. According to [employer] cgm download 07/04/2021-07/17/2021 : Average glucose 146. [...] material was printed on [employer]. 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 If symptomatic i.e. light headed notify sooner [facility] Other 03-21-2022 Evaluation note* Encounter Date Diagnosis Assessment Notes Treatment Notes Treatment Clinical Notes May, Gastro-esophageal reflux disease with esophagitis, without bleeding (ICD-10 - K21.00) [facility] Other 03-08-2022 Evaluation note* Encounter Date Diagnosis [...] His MBD parameters are within the goal. [facility] Other 02-21-2022 Evaluation note* Encounter Date Diagnosis Assessment Notes Treatment Notes Treatment Clinical Notes May, Diabetes mellitus with chronic kidney disease (ICD-10 - E11.22) [facility] Other 01-10-2022 Evaluation note* Encounter Date Diagnosis Assessment Notes Treatment Notes Treatment Clinical Notes Apr, Type 2 diabetes mellitus with hyperglycemia (ICD-10 - E11.65) [facility] Other 01-10-2022 Evaluation note* Encounter Date Diagnosis [...] Blood glucose levels above improved. According to [employer] cgm download 03/28/2021-04/10/19 22: Average glucose 167. [...] also given rx assist paperwork for [facility] if he does not qualify for BI/jardiance. Ozempic will increase to 1mg once weekly. Apr, Hyperlipidemia (ICD-10 - E78.5) High cholesterol material was printed 07/2020 ldl 64 trig 207- on statin. Apr, HTN (hypertension) (ICD-10 - I10) About hypertension material was printed on [employer]. Apr, MCC current use of insulin (ICD-10 - Z79.4) Apr, BMI 30.0-30.9,adult (ICD-10 - Z68.30) Eating healthy: tips to make it easier material was printed see above [facility] Other 11-16-2021 Evaluation note* Encounter Date Diagnosis [...] His MBD parameters are within the goal. [facility] Other 10-05-2021 Evaluation note* Encounter Date Diagnosis [...] above target with increased variability. According to [employer] cgm download 12/07/2020-01/03/2021: Average glucose 135. Above [...] hypertension material was printed on [employer]. Dec, MCC current use of insulin (ICD-10 - Z79.4) Dec, BMI 31.0-31.9,adult (ICD-10 - Z68.31) Eating healthy: tips to make it easier material was printed 12 pound weight loss from last visit, continue with weight loss efforts Dec, Bradycardia (ICD-10 - R00.1) Pt asymptomatic. Notified marine equipment preservation inspector Dr. Velazquez. Pt has apt on Saturday next week. [place] [employer] Other Chimg complaint+Reason for visit Narrative* Chief Complaint 4 month follow up Reason for Visit BMI 28.0-28.9,adult Dietary counseling and surveillance HTN (hypertension) Chronic HFrEF (heart failure with reduced ejection fraction) Chronic kidney disease [id number] HTN (hypertension) Hypercholesterolemia Ischemic cardiomyopathy Pulmonary nodule Type 2 diabetes mellitus with hyperglycemia [facility] Work Phone: Evaluation + Plan note No data available for this section General Surgery Luis Enrique Evaluation + Plan note Future Appointments Appointment Date:08/04/2024 10:00:00 AM Scheduled Provider: Location:[facility] Appointment Type:Urology FT Diagnostic Tests Pending * Urine Cytology ([facility]) 08/03/24 [facility] Evalutonkw noteNo InformationNortHaven [facility] [place] Other Evaluation note* Diagnosis Monoclonal gammopathy- Primary Monoclonal paraproteinemia [facility] this encounter [facility] Diagnosis Onset Date Resolution Status Non-ST elevation myocardial infarction (NSTEMI), initial care episode acute [facility] Work Phone: Evalurycvh noteNo assessment information available [facility] Work Phone: evaluation note* Diagnosis Onset Date Resolution Status BMI 26.0-26.9,adult acute Dietary counseling and surveillance acute DM2 (diabetes mellitus, type 2) acute HLD (hyperlipidemia) acute HTN (hypertension) acute [facility] Work Phone: Evaluation note* Diagnosis Onset Date Resolution Status BMI 26.0-26.9,adult acute Dietary counseling and surveillance acute DM2 (diabetes mellitus, type 2) acute HLD (hyperlipidemia) acute HTN (hypertension) acute Chronic HFrEF (heart failure with reduced ejection fraction) acute CKD (chronic kidney disease) stage 3, GFR 30-59 ml/min acute HLD (hyperlipidemia) acute [id number] acute Secondary hyperparathyroidism acute Type 2 diabetes 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 acute [facility] Work Phone: Evaluation note* Diagnosis Onset Date Resolution Status Dietary counseling and surveillance acute HTN (hypertension) acute Chronic HFrEF (heart failure with reduced ejection fraction) acute CKD (chronic kidney disease) stage 3, GFR 30-59 ml/min acute [id number] acute Secondary hyperparathyroidism acute Type 2 diabetes 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 acute Chronic HFrEF (heart failure with reduced ejection fraction) acute Chronic kidney disease acute HTN (hypertension) acute Hypercholesterolemia acute Ischemic cardiomyopathy acut e Pulmonary nodule acute Type 2 diabetes mellitus with hyperglycemia acute Medicare annual wellness visit, subsequent noneactive Screening PSA (prostate specific antigen) noneactive [facility] Work Phone: evaluation note* Diagnosis Onset [...] counseling and surveillance acute HTN (hypertension) acute [facility] Work Phone: Evaluation note* Diagnosis Onset Date Resolution Status BMI 28.0-28.9,adult acute Dietary counseling and surveillance acute HTN (hypertension) acute Chronic HFrEF (heart failure with reduced ejection fraction) acute Chronic kidney disease acute [id number] acute HTN (hypertension) acute Hypercholesterolemia acute Ischemic cardiomyopathy acut e Pulmonary nodule acute Type 2 diabetes mellitus with hyperglycemia acute [facility] Work Phone: Evaluation note* Diagnosis Onset [...] disease) stage 3, GFR 30-59 ml/min acute [id number] acute Secondary hyperparathyroidism acute Type 2 diabetes 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 acute [facility] Work Phone: Evaluation note* Diagnosis Onset Date Resolution Status Chronic HFrEF (heart failure with reduced ejection fraction) acute Chronic kidney disease acute HTN (hypertension) acute Hypercholesterolemia acute Ischemic cardiomyopathy acut e Pulmonary nodule acute Type 2 diabetes mellitus with hyperglycemia acute Chronic HFrEF (heart failure with reduced ejection fraction) acute CKD (chronic kidney disease) stage 3, GFR 30-59 ml/min acute [id number] acute Secondary hyperparathyroidism acute Type 2 diabetes 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 acute BMI 27.0-27.9,adult acute Dietary counseling and surveillance acute HTN (hypertension) acute [facility] Work Phone: Evaluation note* Diagnosis Xerosis cutis- Primary Other specified disease of sebaceous glands Diabetes 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, without long-term current use of insulin (CMS/HCC) Pain due to onychomycosis of toenails of both feet documented in this encounter [facility] HealthcareEvaluation note* Diagnosis Diabetes 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, without long-term current use of insulin (CMS/HCC)- Primary Pain due to onychomycosis of toenails of both feet documented in this encounter [facility] HealthcareEvaluation note* Diagnosis Diabetes 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, without long-term current use of insulin ([facility])- Primary Pain due to onychomycosis of toenails of both feet Xerosis cutis Other specified disease of sebaceous glands documented in this encounter [facility] HealthcareHistory general Narrative - Reported* Type [...] 11-25-16 Hospitalization History HEART STENT PLACED 03-20 Mesitis Other Hishfkm general Narrative - ReportedNortPinnacle Spine Other [facility] general Narrative - Reported* Type Description Date [...] 11-25-16 Hospitalization History HEART STENT PLACED 03-20 Mesitis Other history general Narrative - Reported* Type [...] 11-25-16 Hospitalization History HEART STENT PLACED 03-20 Mesitis Other History general Narrative - Reported* Type [...] 11-25-16 Hospitalization History HEART STENT PLACED 03-20 Mesitis Other cartmi general Narrative - Reported* Type Description Date [...] STENT PLACED 03-20 Hospitalization History SEE ABOVE Mesitis Other History general [facility] - [facility] Other History general Narrative - Reported* Type [...] STENT PLACED 03-20 Hospitalization History SEE ABOVE Mesitis Other Hismjtw general Narrative - Reported* Type Description Date [...] STENT PLACED 03-20 Hospitalization History SEE ABOVE Mesitis Other History general Narrative - Reported* Type [...] STENT PLACED 03-20 Hospitalization History SEE ABOVE Mesitis Other History general Narrative - Reported* Type [...] History GGO and Pulmonary nodules Medical History [place] 01/21 Medical History Defibrilator 02/21 Surgical History [...] 03-20 Hospitalization History SEE ABOVE Hospitalization History [place] 01/21 Mesitis Other Hospital Discharge instructions No data available for this section General Surgery [facility] Discharge instructions Additional Instructions Monitor glucose levels as before. DISCHARGE INSTRUCTIONS FOR CARDIAC LAND INSPECTOR PHONE NUMBER OF YOUR PHYSICIAN: [phone] PROCEDURE: Heart Cath The following instructions have [...] cold, numb, blue or white, call the marine equipment preservation inspector immediately. 4. ACTIVITY: You are advised [...] bottle, follow the instructions on the bottle. [facility] is not responsible for incorrect prescription information provided by the patient during their visit. Do not stop your medications without consulting your health care provider. Please take the list with you to your next doctor's appointment. [facility] Work Phone: Hospital Discharge instructionsAmbulatory Orders* Referral to Podiatry Location: None [facility] Work Phone: Hospital Discharge instructionsAmbulatory Orders* Referral to Urology Time Frame: 07/14/24, Location: None [facility] Work Phone: Progress note No data available for this section General Surgery [place] Summary Purpose Family History No Family History [...] stage 3, GFR 30-59 ml/min HLD (hyperlipidemia) [id number] Secondary hyperparathyroidism Type 2 diabetes mellitus with diabetic chronic kidney disease 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 6 month follow up MEDICARE WELLNESS Reason for Visit Dietary counseling a nd surveillance HTN (hypertension) Chronic HFrEF (heart failure with reduced ejection fraction) CKD (chronic kidney disease) stage 3, GFR 30-59 ml/min [id number] Secondary hyperparathyroidism Type 2 diabetes mellitus with [...] kidney disease) stage 3, GFR 30-59 ml/min [id number] Secondary hyperparathyroidism Type 2 diabetes mellitus with [...] kidney disease) stage 3, GFR 30-59 ml/min [id number] Secondary hyperparathyroidism Type 2 diabetes mellitus with diabetic chronic kidney disease BMI 27.0-27.9,adult Dietary counseling and surveillance HTN (hypertension) Chief Complaint Admit Date Amb Documentation February 18, 2024 9:11am CC Adult Risk Stratification February 172023 10:26am IP f/u [facility] chest pain-HIGH RISK Nov 2023 [...] :19am Type 2 diabetes mellitus with hyperglyce [facility] April 16, 2024 8:19am BMI 28.0-28.9,adult April [...] :19am Type 2 diabetes mellitus with hyperglyce [facility] April 16, 2024 8:19am BMI 28.0-28.9,adult April [...] Amb Documentation August 21, 2024 1:11p m [facility] f/u August 25, 2024 11:31 [...] section and content) DATE CREATED AUTHOR 11/29/2018 [facility] DATE CREATED AUTHOR AUTHOR'S ORGANIZ ATION 10/25/2021 [facility] DATE CREATED AUTHOR AUTHOR'S ORGANIZ ATION 08/13/2022 [facility] DATE CREATED AUTHOR AUTHOR'S ORGANIZ ATION 08/09/2024 [facility] DATE CREATED AUTHOR AUTHOR'S ORGANIZ ATION 08/12/2024 [facility] DATE CREATED AUTHOR AUTHOR'S ORGANIZ ATION 09/24/2024 [facility] DATE CREATED AUTHOR AUTHOR'S ORGANIZ ATION 09/25/2024 [facility] EPIC DATE CREATED AUTHOR AUTHOR'S ORGANIZ ATION 10/09/2024 [facility] REASON FOR VISIT (unrecogniz ed section [...] July 02, 2023 End: July 02, 2023 Paid Search Marketing Strategist Relationship Specialty Start Date End Date Harley Crespo DO [address] [place] [address] PCP - General Internal Medicine 07/18/18 Team Status: Inactive Member Role Status Dates Harley Crespo DO Primary Care Provider Active Gagan Shahid DO Admit Provider, Attending Provider Active Team Status: Active Member Role Status Dates Harley Crespo DO Primary Care Provider Active Ryan Garrett APRN [employer] Active Valerie Gallegos PA-C Active Arlen Kwong APRN Attending Provider Active Team Status: Inactive Member Role Status Dates Arlen Kwong APRN Attending Provider Active Start: March 12, 2023 End: March 12, 2023 Team Status: Inactive Member Role Status Dates Harley Crespo DO Primary Care Provider Active Start: March 12, 2023 End: March 12, 2023 Ryan Garrett APRN [employer] Active Sta rt: March 12, 2023 End: [...] January 23, 2024 End: January 23, 2024 Paid Search Marketing Strategist Relationship Specialty Start Date End Date Harley Crespo MD [address] [place] [facility] [place] [address] PCP - General Internal Medicine 11/07/23 Paid Search Marketing Strategist Relationship Specialty Start Date End Date Harley Crespo MD [address] [place] [facility] [place] [address] PCP - General Internal Medicine 11/07/23 Paid Search Marketing Strategist Relationship Specialty Start Date End Date Harley Crespo MD [address] [place] [facility] [place] [address] PCP - General Internal Medicine 11/07/23 [...] Attending Provider Active Start: August 27, 2024 Paid Search Marketing Strategist Relationship Specialty Start Date End Date Harley Crespo DO [address] [place] [facility] [place] [address] PCP - General Internal Medicine 11/07/23 Paid Search Marketing Strategist Relationship Specialty Start Date End Date Harley Crespo DO [address] [place] [facility] [place] [address] (work) PCP - General Internal Medicine 11/07/23 Source Comments (unrecognize d section and content) In the event this informatio n is protected by the Federal Confidentiality of Alcohol and Drug Abuse Patient Records regulations: The Federal rules restrict any use of the information to criminally investigate or prosecute any alcohol or drug abuse patient.[facility] Goals (unrecognized section and content) [...] BE BASED ON THE PRIMARY CLINICAL RECORDS. [employer] provides no warranty or guarantee of the accuracy or completeness of information in this document.
[2024-10-12 05:57] LABS: Hematocrit 31.8 % (42.0-54.0); Hemoglobin 10.8 g/dL (14.0-18.0); Immature Granulocytes Abs Auto 0.04 10^3/uL (0.00-0.03); Immature Granulocytes Pct Auto 0.7 % (0.0-0.5); Lymphocytes Absolute Auto 0.8 10^3/uL (1.2-3.8); Mean Corpuscular HGB Conc 34.0 g/dL (29.9-35.2); Mean Corpuscular Hemoglobin 30.1 pg (25.9-34.0); Mean Corpuscular Volume 88.6 fL (80.0-94.0); Platelet Count 242 10^3/uL (150-450); Red Blood Count 3.59 10^6/uL (4.70-6.10); White Blood Count 5.4 10^3/uL (4.0-11.0)
[2024-10-12 06:19] LABS: Alanine Aminotransferase 21 U/L (16-63); Albumin Globulin Ratio 0.7; Albumin Level 2.8 g/dL (3.4-5.0); Alkaline Phosphatase 86 U/L (46-116); Anion Gap 18.5; Aspartate Amino Transferase 22 U/L (15-37); Blood Urea Nitrogen 45.0 mg/dL (7.0-18.0); Calcium 8.9 mg/dL (8.5-10.1); Carbon Dioxide 17.8 mmol/L (21.0-32.0); Chloride 107 mmol/L (98-107); Estimated GFR (African America 28 (>=60 mL/min/1.73m^2); Estimated GFR (Non-African Ame 23 (>=60 mL/min/1.73m^2); Globulin 4.1 g/dL; Glucose 159 mg/dL (74-106); Potassium 4.3 mmol/L (3.5-5.1); Sodium 139 mmol/L (136-145); Total Protein 6.9 g/dL (6.4-8.2)
[2024-10-12] MEDS: INSULIN ASPART 300 UNIT/3 ML PEN SUBQ ×2 (08:06→21:36)
[2024-10-12] MEDS: HEPARIN SODIUM (PORCINE) 5,000 UNIT/ML VIAL 5000 UNIT SUBQ ×2 (08:07→16:23)
--- NOTE | 2024-10-12 08:20 | CM.NOTE ---
Rounds made with Dr. Elizalde, discussed with pt plan of care and reason for admission. Awaiting cultures and will continue IV antibiotics.
[2024-10-12] MEDS: 0.9 % SODIUM CHLORIDE 250 ML 10 ML IV (10:05)
[2024-10-12] MEDS: PIPERACILLIN SODIUM/TAZOBACTAM 3.375 GM in 0.9 % SODIUM CHLORIDE 50 ML IV ×2 (10:05→21:37)
--- NOTE | 2024-10-12 10:05 | PM.HP ---
HPI H&P: HPI History of Present Illness Chief complaint: PAIN URINATING, UTI Narrative: Mr. Ayoub is a 73-year-old gentleman who came in with difficulty urinating and suprapubic pain. Patient had bladder cancer resection in [place] 2 weeks ago. Rg catheter was removed last week. Patient came in to the emergency room complaining of difficulty urinating associated with dark cloudy urine. Suprapubic discomfort. Was found to have significant UTI No fever or chills. No chest pain palpitation. Opioid HPI Opioid Management Most Recent Pain and Opioid Data: Last Pain Scale 4 08/13/24, 00:18 Last Pain Assessment Today, 03:00 Last ORT Total Score 0 Today, 02:27 Last ORT Risk Category Low Risk Today, 02:27 Review of Systems ROS Status of ROS 10 or more systems reviewed and unremarkable except as noted in history and below [facility] Medical History (Updated 10/12/24 @ 10:08 by Meghan Elizalde MD) AMI (acute myocardial infarction) ?I21.9 - Acute myocardial infarction, unspecified (ICD-10) Pacemaker ?Z95.0 - Presence of cardiac pacemaker (ICD-10) Anxiety ?F41.9 - Anxiety disorder, unspecified (ICD-10) GERD (gastroesophageal reflux disease) ?K21.9 - Gastro-esophageal reflux disease without esophagitis (ICD-10) Surgical History (Updated 10/12/24 @ 02:44 by Bernadette Hook, ALBINO) History of open heart surgery ?Z98.890 - Other specified postprocedural states (ICD-10) History of heart artery stent ?Z95.5 - Presence of coronary angioplasty implant and graft (ICD-10) Family History (Updated 10/12/24 @ 02:45 by Bernadette Hook, ALBINO) Mother Family history of CHF (congestive heart failure) Family history of diabetes mellitus Family history of hypertension Father Family history of CHF (congestive heart failure) Family history of cancer Brother Family history of cancer Family history of myocardial infarction Family history of stroke Social History (Updated 01/24/23 @ 20:00 by Cammy Adler) Within the past year, how often did you have a drink containing alcohol: never Within the past year, how often did you have six or more drinks on one occasion: never Score interpretation: A score less than 4 is consistent with normal alcohol consumption. Smoking status: Former smoker Non-prescribed substance use: denies use Previous occupational history: works 1 day a week Highest level of school completed/degree received: high school graduate Are you now , , , , never or living with a partner: In a typical week, how many times do you talk on the telephone with family, friends, or neighbors: 3 or more times per week How often do you get together with friends or relatives: once per week How often do you attend bahai or pentecostalism services: 1-3 times per year Little interest or pleasure in doing things: not at all Feeling down, depressed, or hopeless: not at all Feel stressed/tense/nervous/anxious/difficulty sleeping: to some extent Life stressors: other Life stressor details: getting older Gender Identity: male Meds Home Medications and Allergies Home Medications ?Medication ?Instructions ?Recorded ?Confirmed ?Type alprazolam 0.5 mg tablet (Xanax) 0.5 mg PO BID 01/24/23 10/12/24 History aspirin 81 mg tablet,delayed 81 mg PO DAILY 01/24/23 10/12/24 History release (Adult Aspirin Regimen) cholecalciferol (vitamin D3) 25 25 mcg PO DAILY 01/24/23 10/12/24 History mcg (1,000 unit) tablet (Vitamin D3) clopidogrel 75 mg tablet 75 mg PO .HS 01/24/23 10/12/24 History empagliflozin 10 mg tablet 10 mg PO QAM 01/24/23 10/12/24 History (Jardiance) insulin aspart U-100 100 unit/mL 1 sliding scale dose subcut 01/24/23 10/12/24 History (3 mL) subcutaneous pen (Novolog USEASDIRECTD FlexPen U-100 Insulin aspart) isosorbide mononitrate 60 mg 60 mg PO BID 01/24/23 10/12/24 History tablet,extended release 24 hr multivitamin with iron-mineral 1 tab PO DAILY 01/24/23 10/12/24 History nitroglycerin 0.4 mg sublingual 0.4 mg sublingual Q5M PRN chest 01/24/23 10/12/24 History tablet pain pantoprazole 40 mg tablet,delayed 40 mg PO DAILY 01/24/23 10/12/24 History release insulin degludec 100 unit/mL (3 14 unit subcut DAILY 08/13/24 10/12/24 History mL) subcutaneous pen (Tresiba FlexTouch U-100 insulin) metoprolol succinate 100 mg 150 mg PO DAILY 08/13/24 10/12/24 History tablet,extended release 24 hr ranolazine 500 mg tablet,extended 500 mg PO Q12H 08/13/24 10/12/24 History release,12 hr rosuvastatin 40 mg tablet 40 mg PO .QHS 08/13/24 10/12/24 History spironolactone 25 mg tablet 25 mg PO DAILY 08/13/24 10/12/24 History amlodipine 5 mg tablet 5 mg PO DAILY 10/12/24 10/12/24 History Allergies Allergy/AdvReac Type Severity Reaction Status Date / Time No Known Drug Allergies Allergy Verified 10/12/24 01:49 Exam Narrative Exam Narrative: [pt is awake and alert. oriented to place, time and person HEENT: [place] conjunctiva and NL buccal mucosa Neck: Supple, no tenderness Endocrine: No Thyromegaly. Vascular: No JVD or carotid bruit. Lymphatic: No cervical lymphadenopathy. Chest: CTA no DTP. Heart RRR, no extra sound or murmur. Abd: Soft, no tenderness, no rebound and no rigidity. Increase abd girth therefore clinically I could not exclude the possibility of intra abd mass or organomegaly. LE: No cyanosis or clubbing, no varices or edema. Neuro: A A O. Nl speech, comprehension and attention. Nl and symetrical motor and tone examination through out. []] Constitutional Vital Signs, click to edit/add: Last Vital Signs Temp 97.8 F 10/12/24 07:50 Pulse 77 10/12/24 07:50 Resp 18 10/12/24 07:50 BP 126/74 10/12/24 07:50 Pulse Ox 95 10/12/24 07:50 O2 Del Method Room Air 10/12/24 07:50 Results Labs Labs: Short CBC 10/11/24 10/12/24 Range/Units 20:50 05:32 WBC 6.9 5.4 (4.0-11.0) 10^3/uL Hgb 12.4 L 10.8 L (14.0-18.0) g/dL Hct 36.7 L 31.8 L (42.0-54.0) % Plt Count 253 242 (150-450) 10^3/uL BMP 10/11/24 10/12/24 20:50 05:32 Sodium 137 139 Potassium 4.2 4.3 Chloride 102 107 Carbon Dioxide 22.8 17.8 L BUN 48.0 H 45.0 H Creatinine 3.23 H 2.73 H Glucose 139 H 159 H Calcium 9.4 8.9 Liver Function 10/11/24 10/12/24 Range/Units 20:50 05:32 Total Bilirubin 0.8 0.6 (0.2-1.0) mg/dL AST 27 22 (15-37) U/L ALT 26 21 (16-63) U/L Alkaline Phosphatase 108 86 (46-116) U/L Albumin 3.3 L 2.8 L (3.4-5.0) g/dL Urine 10/11/24 Range/Units 20:09 Urine Color Yellow (YELLOW) Urine Clarity Clear (CLEAR) Urine pH 6.0 (5.0-9.0) Ur Specific [place] 1.025 (1.005-1.025) Urine Protein >=300 A (NEG/TRACE) mg/dL Urine Glucose (UA) >=1000 A (NEGATIVE) mg/dL Assessment and Plan Assessment and Plan (1) Acute cystitis: (2) Acute renal failure: (3) Chronic renal disease: (4) Coronary artery disease: (5) Peripheral vascular disease: Plan Acute cystitis with urinary retention Recent bladder cancer resection completed in [place]. Rg catheter was removed last week CAT scan showed cystitis and probable degree of obstructive uropathy secondary to above. No stones I had accepted to admit patient to the medical floor. Blood and urine cultures are pending. Continue Zosyn at this time to cover possibility of Pseudomonas LILIANE/stage III borderline stage IV kidney failure Likely caused by above. Continue gentle IV fluid infusion. CAT scan showed mild obstructive ureter but no stone. Likely from cystitis Requested to check postvoid residual to rule out significant urinary retention Hypertension, diabetes, coronary artery disease, peripheral vascular disease All appears to be stable at this time. Resume preadmission home medications. Continue antiplatelets Sliding scale coverage Anemia, no evidence of acute blood loss. Could be related to CKD Requested iron study and ferritin. Patient will likely require to have anemia workup to be done in the outpatient setting to be handled by PCP in collaboration with other needed outpatient providers. This may include but not limited to EGD, colonoscopy, referral to see hematology and other needed age-appropriate cancer screening. Chronic medical conditions not listed above, incidental findings seen on labs and imaging. These would need to be addressed. Could be addressed when time and condition are appropriate. Could be addressed in the outpatient setting by PCP collaboration with other needed outpatient providers. DVT prophylaxis Subcutaneous heparin plan
[2024-10-12] MEDS: ASPIRIN 81 MG TABLET.DR PO (10:24)
[2024-10-12] MEDS: ISOSORBIDE MONONITRATE 60 MG TAB.ER.24H PO ×2 (10:24→21:36)
[2024-10-12] MEDS: ALPRAZOLAM 0.5 MG TABLET PO ×2 (10:25→21:35)
[2024-10-12] MEDS: PANTOPRAZOLE SODIUM 40 MG TABLET.DR PO (10:25)
[2024-10-12] MEDS: METOPROLOL SUCCINATE 50 MG TAB.ER.24H 75 MG PO (10:25)
[2024-10-12] MEDS: RANOLAZINE 500 MG TAB.ER.12H PO ×2 (10:25→21:36)
[2024-10-12 11:14] LABS: Iron 28.0 ug/dL (65.0-175.0); Percent Iron Saturation 12.1 %; Total Iron Binding Capacity 231.0 ug/dL (250.0-450.0)
--- NOTE | 2024-10-12 11:40 | CM.NOTE ---
Important message From Medicare discussed with pt, pt verbalizes understanding and signs paper. Original given to pt and copy placed in pt's chart.
--- NOTE | 2024-10-12 12:15 | SWNOTE1 ---
SW reviewed therapy notes and no needs identified.
[2024-10-12] MEDS: 0.9 % SODIUM CHLORIDE 1,000 ML 70 ML IV (14:20)
[2024-10-12] MEDS: CLOPIDOGREL BISULFATE 75 MG TABLET PO (21:35)
[2024-10-13] MEDS: HEPARIN SODIUM (PORCINE) 5,000 UNIT/ML VIAL 5000 UNIT SUBQ ×3 (01:05→17:12)
[2024-10-13 03:25] VITALS: BP 136/74; PULSE 82; TEMP 36.8; O2SAT 95
[2024-10-13 05:30] LABS: Hematocrit 31.8 % (42.0-54.0); Hemoglobin 10.6 g/dL (14.0-18.0); Mean Corpuscular HGB Conc 33.3 g/dL (29.9-35.2); Mean Corpuscular Hemoglobin 29.4 pg (25.9-34.0); Mean Corpuscular Volume 88.1 fL (80.0-94.0); Platelet Count 316 10^3/uL (150-450); Red Blood Count 3.61 10^6/uL (4.70-6.10); White Blood Count 4.9 10^3/uL (4.0-11.0)
[2024-10-13] MEDS: 0.9 % SODIUM CHLORIDE 1,000 ML 70 ML IV (05:41)
[2024-10-13] MEDS: PANTOPRAZOLE SODIUM 40 MG TABLET.DR PO (05:42)
[2024-10-13 05:49] LABS: Anion Gap 19.3; Blood Urea Nitrogen 36.0 mg/dL (7.0-18.0); Calcium 8.7 mg/dL (8.5-10.1); Carbon Dioxide 17.0 mmol/L (21.0-32.0); Chloride 108 mmol/L (98-107); Estimated GFR (African America 34 (>=60 mL/min/1.73m^2); Estimated GFR (Non-African Ame 28 (>=60 mL/min/1.73m^2); Glucose 167 mg/dL (74-106); Potassium 4.3 mmol/L (3.5-5.1); Sodium 140 mmol/L (136-145)
[2024-10-13 07:59] VITALS: BP 122/73; PULSE 81; TEMP 36.8; O2SAT 96
[2024-10-13] MEDS: INSULIN ASPART 300 UNIT/3 ML PEN SUBQ ×4 (08:28→21:56)
[2024-10-13] MEDS: ASPIRIN 81 MG TABLET.DR PO (08:29)
[2024-10-13] MEDS: ALPRAZOLAM 0.5 MG TABLET PO ×2 (08:29→21:55)
[2024-10-13] MEDS: ISOSORBIDE MONONITRATE 60 MG TAB.ER.24H PO ×2 (08:29→21:54)
[2024-10-13] MEDS: RANOLAZINE 500 MG TAB.ER.12H PO ×2 (08:29→21:55)
[2024-10-13] MEDS: METOPROLOL SUCCINATE 50 MG TAB.ER.24H 75 MG PO (08:29)
[2024-10-13] MEDS: PIPERACILLIN SODIUM/TAZOBACTAM 3.375 GM in 0.9 % SODIUM CHLORIDE 50 ML IV ×2 (09:20→17:12)
--- NOTE | 2024-10-13 09:55 | CM.NOTE ---
Rounds made with Dr. Elizalde, pt continues to c/o feeling fatigued and exhaustion. Awaiting urine and blood culture results. Continue IV antibiotic therapy and monitor.
[2024-10-13 11:47] VITALS: BP 127/69; PULSE 80; TEMP 36.6; O2SAT 95
--- NOTE | 2024-10-13 12:05 | P.PN_ITS ---
Progress Note: Subjective Subjective Interval history: Patient continues to report having sickness feeling. Unable to specify. Continues to have dysuria. No hematuria. No fever or chills. Nausea but no vomiting. Exam Narrative Exam Narrative: [pt is awake and alert. oriented to place, time and person HEENT: [place] conjunctiva and NL buccal mucosa Neck: Supple, no tenderness Endocrine: No Thyromegaly. Vascular: No JVD or carotid bruit. Lymphatic: No cervical lymphadenopathy. Chest: CTA no DTP. Heart RRR, no extra sound or murmur. Abd: Soft, no tenderness, no rebound and no rigidity. Increase abd girth th erefore clinically I could not exclude the possibility of intra abd mass or organomegaly. LE: No cyanosis or clubbing, no varices or edema. Neuro: A A O. Nl speech, comprehension and attention. Nl and symetrical motor and tone examination through out. []] Constitutional Vital Signs, click to edit/add: Last Vital Signs Temp 98 F 10/13/24 11:47 Pulse 80 10/13/24 11:47 Resp 20 10/13/24 11:47 BP 127/69 10/13/24 11:47 Pulse Ox 95 10/13/24 11:47 O2 Del Method Room Air 10/13/24 11:47 Progress Note: Objective Labs Labs: Short CBC 10/13/24 Range/Units 05:15 WBC 4.9 (4.0-11.0) 10^3/uL Hgb 10.6 L (14.0-18.0) g/dL Hct 31.8 L (42.0-54.0) % Plt Count 316 (150-450) 10^3/uL BMP 10/13/24 05:15 Sodium 140 Potassium 4.3 Chloride 108 H Carbon Dioxide 17.0 L BUN 36.0 H Creatinine 2.30 H Glucose 167 H Calcium 8.7 Progress Note: A&P Assessment and Plan (1) Acute cystitis: (2) Acute renal failure: (3) Chronic renal disease: (4) Coronary artery disease: (5) Peripheral vascular disease: Plan Acute cystitis with urinary retention Recent bladder cancer resection completed in [place]. Rg catheter was removed last week CAT scan showed cystitis and probable degree of obstructive uropathy secondary to above. No stones I had accepted to admit patient to the medical floor. Blood and urine cultures are pending. Continue Zosyn at this time to cover possibility of Pseudomonas Urine culture is positive for gram-negative organism. Final ID and sensitivity are pending Postvoid residual is less than 50. LILIANE/stage III borderline stage IV kidney failure. Baseline creatinine is about 2.2 Likely caused by above. Continue gentle IV fluid infusion. CAT scan showed mild obstructive ureter but no stone. Likely from cystitis Requested to check postvoid residual to rule out significant urinary retention. Postvoid residual is less than 50. Hypertension, diabetes, coronary artery disease, peripheral vascular disease Severe cardiomyopathy. Last ejection fraction reported at 25%. At this time, patient is euvolemic All appears to be stable at this time. Resume preadmission home medications. Continue antiplatelets Patient is on beta-jason and spironolactone as well as SGLT 1 He is not on TRISTON, ARB or Entresto. Could be due to his CKD. 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 Sliding scale coverage, recent A1c 7.4. Patient is on SGLT 1 Anemia, no evidence of acute blood loss. Could be related to CKD Requested iron study and ferritin. Patient will likely require to have anemia workup to be done in the outpatient setting to be handled by PCP in collaboration with other needed outpatient providers. This may include but not limited to EGD, colonoscopy, referral to see hematology and other needed age-appropriate cancer screening. Chronic medical conditions not listed above, incidental findings seen on labs and imaging. These would need to be addressed. Could be addressed when time and condition are appropriate. Could be addressed in the outpatient setting by PCP collaboration with other needed outpatient providers. DVT prophylaxis Subcutaneous heparin plan
[2024-10-13 15:32] VITALS: BP 122/70; PULSE 79; TEMP 36.6; O2SAT 98
[2024-10-13 19:52] VITALS: BP 122/72; PULSE 77; TEMP 36.6; O2SAT 96
[2024-10-13 21:54] VITALS: PULSE 77
[2024-10-13] MEDS: CLOPIDOGREL BISULFATE 75 MG TABLET PO (21:55)
[2024-10-14] VITALS (7 sets, daily range): BP systolic 107–145; BP diastolic 56–80; PULSE 68–93; TEMP 36.4–36.8; O2SAT 95–98
[2024-10-14] MEDS: HEPARIN SODIUM (PORCINE) 5,000 UNIT/ML VIAL 5000 UNIT SUBQ ×3 (01:02→16:00)
[2024-10-14] MEDS: PIPERACILLIN SODIUM/TAZOBACTAM 3.375 GM in 0.9 % SODIUM CHLORIDE 50 ML IV ×2 (01:02→08:20)
[2024-10-14] MEDS: 0.9 % SODIUM CHLORIDE 250 ML 10 ML IV (01:03)
[2024-10-14] MEDS: PANTOPRAZOLE SODIUM 40 MG TABLET.DR PO (06:22)
[2024-10-14 06:23] LABS: Anion Gap 15.8; Blood Urea Nitrogen 27.0 mg/dL (7.0-18.0); Calcium 8.7 mg/dL (8.5-10.1); Carbon Dioxide 20.6 mmol/L (21.0-32.0); Chloride 110 mmol/L (98-107); Estimated GFR (African America 41 (>=60 mL/min/1.73m^2); Estimated GFR (Non-African Ame 34 (>=60 mL/min/1.73m^2); Glucose 160 mg/dL (74-106); Potassium 4.4 mmol/L (3.5-5.1); Sodium 142 mmol/L (136-145)
[2024-10-14] MEDS: INSULIN ASPART 300 UNIT/3 ML PEN SUBQ ×4 (07:33→21:06)
[2024-10-14] MEDS: ISOSORBIDE MONONITRATE 60 MG TAB.ER.24H PO ×2 (08:19→21:04)
[2024-10-14] MEDS: RANOLAZINE 500 MG TAB.ER.12H PO ×2 (08:19→21:04)
[2024-10-14] MEDS: ASPIRIN 81 MG TABLET.DR PO (08:19)
[2024-10-14] MEDS: ALPRAZOLAM 0.5 MG TABLET PO ×2 (08:19→21:04)
[2024-10-14] MEDS: METOPROLOL SUCCINATE 50 MG TAB.ER.24H 75 MG PO (08:19)
[2024-10-14] MEDS: INSULIN GLARGINE 300 UNIT/3 ML INSULN.PEN 14 UNIT SQ (08:20)
--- NOTE | 2024-10-14 09:46 | CM.NOTE ---
Discussed plan of care with Dr. Elizalde. Awaiting final culture results.
--- NOTE | 2024-10-14 11:22 | P.PN_ITS ---
Progress Note: Subjective Subjective Interval history: Patient is feeling much better today. No hematuria. No fever or chills. Nausea but no vomiting. Exam Narrative Exam Narrative: [pt is awake and alert. oriented to place, time and person HEENT: [place] conjunctiva and NL buccal mucosa Neck: Supple, no tenderness Endocrine: No Thyromegaly. Vascular: No JVD or carotid bruit. Lymphatic: No cervical lymphadenopathy. Chest: CTA no DTP. Heart RRR, no extra sound or murmur. Abd: Soft, no tenderness, no rebound and no rigidity. Increase abd girth therefore clinically I could not exclude the possibility of intra abd mass or organomegaly. LE: No cyanosis or clubbing, no varices or edema. Neuro: A A O. Nl speech, comprehension and attention. Nl and symetrical motor and tone examination through out. []] Constitutional Vital Signs, click to edit/add: Last Vital Signs Temp 97.5 F L 10/14/24 07:54 Pulse 93 H 10/14/24 04:00 Resp 14 10/14/24 07:54 BP 124/66 10/14/24 04:00 Pulse Ox 95 10/14/24 07:54 O2 Del Method Room Air 10/14/24 07:54 Progress Note: Objective Labs Labs: [facility] 10/14/24 05:53 Sodium 142 Potassium 4.4 Chloride 110 H Carbon Dioxide 20.6 L BUN 27.0 H Creatinine 1.97 H Glucose 160 H Calcium 8.7 Progress Note: A&P Assessment and Plan (1) Acute cystitis: (2) Acute renal failure: (3) Chronic renal disease: (4) Coronary artery disease: (5) Peripheral vascular disease: Plan Acute cystitis with urinary retention Recent bladder cancer resection completed in [place]. Rg catheter was removed last week CAT scan showed cystitis and probable degree of obstructive uropathy secondary to above. No stones I had accepted to admit patient to the medical floor. Blood and urine cultures are pending. Continue Zosyn at this time to cover possibility of Pseudomonas Urine cultures positive for Klebsiella. Sensitivities pending. Change antibiotic from Zosyn to ertapenem to cover possibility of ESBL. Postvoid residual is less than 50. LILIANE/stage III borderline stage IV kidney failure. Baseline creatinine is about 2.2 Likely caused by above. Status post IV fluid infusion CAT scan showed mild obstructive ureter but no stone. Likely from cystitis Requested to check postvoid residual to rule out significant urinary retention. Postvoid residual is less than 50. LILIANE had resolved. Kidney function now is at baseline which is CKD stage III-IV. Hypertension, diabetes, coronary artery disease, peripheral vascular disease Severe cardiomyopathy. Last ejection fraction reported at 25%. At this time, patient is euvolemic All appears to be stable at this time. Resume preadmission home medications. Continue antiplatelets Patient is on beta-jason and spironolactone as well as SGLT 1 He is not on TRISTON, ARB or Entresto. Could be due to his CKD. 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 Sliding scale coverage, recent A1c 7.4. Patient is on SGLT 1 Anemia, no evidence of acute blood loss. Could be related to CKD Requested iron study and ferritin. Patient will likely require to have anemia workup to be done in the outpatient setting to be handled by PCP in collaboration with other needed outpatient providers. This may include but not limited to EGD, colonoscopy, referral to see hematology and other needed age-appropriate cancer screening. Chronic medical conditions not listed above, incidental findings seen on labs and imaging. These would need to be addressed. Could be addressed when time and condition are appropriate. Could be addressed in the outpatient setting by PCP collaboration with other needed outpatient providers. DVT prophylaxis Subcutaneous heparin plan
[2024-10-14] MEDS: ERTAPENEM SODIUM 1 GM in 0.9 % SODIUM CHLORIDE 50 ML IV (15:03)
[2024-10-14] MEDS: CLOPIDOGREL BISULFATE 75 MG TABLET PO (21:04)
[2024-10-15] MEDS: HEPARIN SODIUM (PORCINE) 5,000 UNIT/ML VIAL 5000 UNIT SUBQ ×2 (00:42→09:19)
[2024-10-15 04:00] VITALS: BP 128/68; PULSE 90; TEMP 36.4; O2SAT 96
[2024-10-15] MEDS: PANTOPRAZOLE SODIUM 40 MG TABLET.DR PO (05:36)
[2024-10-15 08:00] VITALS: BP 136/77; PULSE 18; PULSE 92; TEMP 36.3; O2SAT 97
[2024-10-15] MEDS: RANOLAZINE 500 MG TAB.ER.12H PO (09:07)
[2024-10-15] MEDS: METOPROLOL SUCCINATE 50 MG TAB.ER.24H 75 MG PO (09:07)
[2024-10-15] MEDS: ASPIRIN 81 MG TABLET.DR PO (09:07)
[2024-10-15] MEDS: ISOSORBIDE MONONITRATE 60 MG TAB.ER.24H PO (09:08)
[2024-10-15] MEDS: INSULIN ASPART 300 UNIT/3 ML PEN SUBQ (09:08)
[2024-10-15] MEDS: ALPRAZOLAM 0.5 MG TABLET PO (09:08)
[2024-10-15] MEDS: INSULIN GLARGINE 300 UNIT/3 ML INSULN.PEN 14 UNIT SQ (09:09)
--- NOTE | 2024-10-15 10:05 | CM.NOTE ---
Rounds made with Dr. Elizalde, pt will discharge to home today. Discussed with pt need for outpatient antibiotics, pt verbalizes understanding.
--- NOTE | 2024-10-15 10:32 | PM.DS1 ---
DS: Providers Provider Date of admission: 10/12/24 02:20 Primary care physician: Harley Goodman DO Consults: 10/12/24 Consult to Dietitian Routine Reason for consultation: 10 pound weight loss Has provider been notified: No 10/12/24 01:10 Consult to Pharmacy Routine Consulting Provider: Reason for consultation: Antbx dosing for renal 10/12/24 01:16 Occupational Therapy Eval and Treat Routine Reason for consultation: Weakness Physical Therapy Eval and Treat Routine Reason for consultation: Weakness DS: Diagnosis Discharge Diagnosis (1) Acute cystitis: (2) Acute renal failure: (3) Chronic renal disease: (4) Coronary artery disease: (5) Peripheral vascular disease: Plan As listed above and others that are not listed DS: Summary Hospital Course Hospital Course: Mr. Ayoub is a 73-year-old gentleman came in not feeling well. He fell down and there was found to have the following Acute cystitis with urinary retention Recent bladder cancer resection completed in [place]. Rg catheter was removed last week CAT scan showed cystitis and probable degree of obstructive uropathy secondary to above. No stones I had accepted to admit patient to the medical floor. Blood and urine cultures are pending. Initially patient was started on Zosyn and yesterday was changed to ertapenem Urine cultures positive for less than 10,000 colonies of [place]err[place]ia which is multidrug-resistant and more than 100,000 colonies of Klebsiella which is pansensitive. Patient had initially received Zosyn in the yesterday switched to ertapenem. He will get the second dose of ertapenem today which will be sufficient to treat less than 10,000 colonies of the [place]ia. Patient will be discharged to home on oral cephalosporin to complete the antibiotic course for Klebsiella. I intentionally tried to avoid Bactrim due to his kidney failure. I intentionally tried to avoid quinolones due to history of cardiomyopathy and increased risk of a cardiac dysrhythmia LILIANE/stage III borderline stage IV kidney failure. Baseline creatinine is about 2.2 Likely caused by above. Status post IV fluid infusion CAT scan showed mild obstructive ureter secondary to cystitis but no stone. Likely from cystitis Requested to check postvoid residual to rule out significant urinary retention. Postvoid residual is less than 50. LILIANE had resolved. Kidney function now is at baseline which is CKD stage III-IV. Recommend repeat imaging of the urinary tract by his urologist in [place] in 2 to 4 weeks after completion of his antibiotic course Fall. CT head and neck are negative for acute intracranial process. Hypertension, diabetes, coronary artery disease, peripheral vascular disease Severe cardiomyopathy. Last ejection fraction reported at 25%. At this time, patient is euvolemic All appears to be stable at this time. Resume preadmission home medications. His blood pressure is lower than baseline. I held his amlodipine throughout this hospitalization. I cut down on his beta-jason dose. Now that his volume status is [pt is awake and alert. oriented to place, time and person HEENT: [place] conjunctiva and NL buccal mucosa Neck: Supple, no tenderness Endocrine: No Thyromegaly. Vascular: No JVD or carotid bruit. Lymphatic: No cervical lymphadenopathy. Chest: CTA no DTP. Heart RRR, no extra sound or murmur. Abd: Soft, no tenderness, no rebound and no rigidity. Increase abd girth therefore clinically I could not exclude the possibility of intra abd mass or organomegaly. LE: No cyanosis or clubbing, no varices or edema. Neuro: A A O. Nl speech, comprehension and attention. Nl and symetrical motor and tone examination through out. I would recommend resuming amlodipine at 2.5 mg daily instead of 5 mg daily and Toprol 100 mg daily instead of 150 mg daily and that is due to softer blood pressure and pulse] Continue antiplatelets Patient is on beta-jason and spironolactone as well as SGLT 1 He is not on TRISTON, ARB or Entresto. Could be due to his CKD. Patient is to follow-up with his chiller tender. Sliding scale coverage, recent A1c 7.4. Patient is on SGLT 1 Anemia, no evidence of acute blood loss. Could be related to CKD Requested iron study and ferritin. Patient will likely require to have anemia workup to be done in the outpatient setting to be handled by PCP in collaboration with other needed outpatient providers. This may include but not limited to EGD, colonoscopy, referral to see hematology and other needed age-appropriate cancer screening. Chronic medical conditions not listed above, incidental findings seen on labs and imaging. These would need to be addressed. Could be addressed when time and condition are appropriate. Could be addressed in the outpatient setting by PCP collaboration with other needed outpatient providers. DVT prophylaxis Subcutaneous heparin plan Patient has multiple complex medical issues as listed above and others that are not listed. All appear to be stable. Patient is feeling great and requesting to be discharged home. At this time, I do not have any clear or strong clinical justification to extend inpatient hospitalization. Patient however will require close and frequent monitoring as well as additional work-up, investigation and therapeutic intervention that could take place from this point on post discharge. That is to prevent relapse, decompensation, rehospitalization and other medical implications. I instructed patient to ask her primary care doctor to obtain [facility] record entirely to address abnormalities seen on labs and imaging that I have and have not addressed during this hospitalization, follow-up on pending blood work, imaging and pathology is if available and to follow-up on needed medical care in the outpatient setting. Time Spent with Patient Time attestation: Total time spent providing and/or coordinating discharge services: Time spent: greater than 30 minutes Exam Constitutional Vital Signs, click to edit/add: Last Vital Signs Temp 97.4 F L 10/15/24 08:00 Pulse 18 L 10/15/24 08:00 Resp 18 10/15/24 08:00 BP 136/77 10/15/24 08:00 Pulse Ox 97 10/15/24 08:00 O2 Del Method Room Air 10/15/24 08:00 DS: Data Data Completed and Pending Labs on day of discharge: Preliminary micro results at discharge 10/11/24 21:45 Blood Culture Result 2 - Preliminary Blood - Right Antecubital NO GROWTH AT 36-48 HOURS. FINAL TO FOLLOW. 10/11/24 20:50 Blood Culture Result 1 - Preliminary Blood NO GROWTH AT 36-48 HOURS. FINAL TO FOLLOW. 10/11/24 20:09 Urine Culture - Preliminary Urine,Clean Catch Pending - Specimen sent to [facility] Discharge Plan Discharge Disposition: Home, Self-Care Health Concerns: I may not have addressed or treated all of your medical illnesses or the abnormal blood work or imaging studies during this hospitalization. Please ask your primary care provider to obtain [facility] records entirely to follow up on all of the abnormal physical, laboratory, and imaging findings that I have not addressed. Please return back to the emergency room or seek medical attention if your symptoms worsen or return. Please follow-up with your bladder specialist in [place]. Please follow-up with your heart and kidney specialists. Discharging you from [facility] does not mean that your medical care ends here and now. You may still need additional monitoring, work up, investigation, and treatment plan to be handled from this point on by out patient providers including your primary care provider and specialists. For any medication question, please contact your retail pharmacist or your primary care provider. Thank you. Discharge Medications: New amoxicillin-pot clavulanate 500-125 mg tablet 1 tab PO BID Qty: 14 0RF Continued ranolazine 500 mg tablet extended release 12 hr 500 mg PO Q12H rosuvastatin 40 mg tablet 40 mg PO .QHS spironolactone 25 mg tablet 25 mg PO DAILY insulin degludec [Tresiba FlexTouch U-100] 100 unit/mL (3 mL) insulin pen 14 unit subcut DAILY pantoprazole 40 mg tablet,delayed release (DR/EC) 40 mg PO DAILY isosorbide mononitrate 60 mg tablet extended release 24 hr 60 mg PO BID Jardiance 10 mg tablet 10 mg PO QAM alprazolam [Xanax] 0.5 mg tablet 0.5 mg PO BID clopidogrel 75 mg tablet 75 mg PO .HS aspirin [Adult Aspirin Regimen] 81 mg tablet,delayed release (DR/EC) 81 mg PO DAILY multivitamin with iron-mineral Tablet 1 tab PO DAILY cholecalciferol (vitamin D3) [Vitamin D3] 25 mcg (1,000 unit) tablet 25 mcg PO DAILY insulin aspart U-100 [Novolog FlexPen U-100 Insulin] 100 unit/mL (3 mL) insulin pen 1 sliding scale dose subcut USEASDIRECTD nitroglycerin 0.4 mg tablet, sublingual 0.4 mg sublingual Q5M PRN (Reason: chest pain) Changed metoprolol succinate 100 mg tablet extended release 24 hr 100 mg PO DAILY Qty: 0 0RF amlodipine 5 mg tablet 2.5 mg PO DAILY Qty: 0 0RF Print Language: Croatian Forms: Portal Instructions Follow Up Appointments: 10/27 @ 11:45am with Dr. Goodman [phone]
[2024-10-15] MEDS: ERTAPENEM SODIUM 1 GM in 0.9 % SODIUM CHLORIDE 50 ML IV (10:50)
--- NOTE | 2024-10-15 12:05 | CM.NOTE ---
No discharge needs identified. Pt voices understanding of medications.
--- NOTE | 2024-10-18 08:34 | PC.NURSE ---
Software Development Analyst reviewed urine culture and gave to to Dr. Elizalde for further review. No new orders at this time.
--- NOTE | 2024-10-19 14:09 | CM.DCFOLLOWU ---
Person spoke with: Sean How are you feeling? Still having incontinence How is your pain? No pain Did you understand your discharge instructions? Yes Do you have any questions about your discharge instructions? No Were you given any prescriptions at discharge? Yes Were you able to get your prescriptions filled? Yes Do you understand how to take your medications as ordered? Yes Do you have any questions about your follow up appointment and do you plan to keep your follow up appointment? I will see Dr. Goodman tomorrow, encouraged pt to establish f/u appointment with urology (scheduled) Is there anything else that you would like to discuss? No Questions/Comments/Concerns/Other:
== END 2024-10-15 11:53 | disposition home or self-care (01) | DRG 690 ==
LOC: ER 19:30 → MS 10-12 02:24
PROVIDERS: Admitting Provider Internal Medicine; Emergency Provider Emergency Medicine; PCP Internal Medicine; Visit Provider Internal Medicine
DX: N30.00 Acute cystitis without hematuria (principal); N17.9 Acute kidney failure, unspecified; N18.4 Chronic kidney disease, stage 4 (severe); I43 Cardiomyopathy in diseases classified elsewhere; I25.10 Atherosclerotic heart disease of native coronary artery without angina pectoris; E11.51 Type 2 diabetes mellitus with diabetic peripheral angiopathy without gangrene; R33.9 Retention of urine, unspecified; E11.22 Type 2 diabetes mellitus with diabetic chronic kidney disease; D63.1 Anemia in chronic kidney disease; C67.9 Malignant neoplasm of bladder, unspecified; R53.1 Weakness; Z91.81 History of falling; Z79.82 Long term (current) use of aspirin; Z79.899 Other long term (current) drug therapy; Z79.4 Long term (current) use of insulin; Z95.0 Presence of cardiac pacemaker; I25.2 Old myocardial infarction; K21.9 Gastro-esophageal reflux disease without esophagitis; Z95.5 Presence of coronary angioplasty implant and graft; Z87.891 Personal history of nicotine dependence; I13.10 Hypertensive heart and chronic kidney disease without heart failure, with stage 1 through stage 4 chronic kidney disease, or unspecified chronic kidney disease; Z98.890 Other specified postprocedural states; B96.1 Klebsiella pneumoniae [K. pneumoniae] as the cause of diseases classified elsewhere; N13.9 Obstructive and reflux uropathy, unspecified
CPT/HCPCS: 36415; 51798; 70450; 71045; 72125; 74176; 80048; 80053; 81001; 82728; 82948; 83540; 83550; 83605; 83735; 83880; 84484; 85025; 85027; 87040; 87086; 87088; 87186; 93005; 96365; 97161; 97165; 97535; 99285; J1335; J1644; J2543

== ENCOUNTER 2024-10-26 08:06 | Outpatient (OUT) | payer MEDICARE, OTHER, SELFPAY ==
--- OUTSIDE RECORDS SUMMARY | 2023-04-04 05:40 | XMS_ITS | Continuity of Care Document ---
Author Organization [facility] Address [address] [place] [address] Phone Care Team Providers Care Set Up / Operator Name Role Phone Flip Stockton MD, May Unavailable Unavailable Allergies, Adverse Reactions, Alerts Substance Reaction Status Criticality No Known Allergies Active No Inform ation Medications Medication Instructions Dosage Effective Dates (start - stop) Status Comments Avastin 25 mg/mL intravenous solution DIRECT PATIENT ADMINISTRATION ONLY - Active OU pantoprazole 40 mg tablet,delayed release take 1 tablet by oral route every 2 days 40 MG - Active Jardiance 10 mg tablet take 1 tablet by oral route every day in the morning 10 MG - Active lisinopril 2.5 mg tablet take 1 tablet by oral route every day 2.5 MG - Active metoprolol tartrate 100 mg tablet take 1 tablet by oral route 2 times every day with meals 100 MG - Active famotidine 20 mg tablet take 1 tablet by oral route every day 20 MG - Active lovastatin 40 mg tablet take 1 tablet by oral route every day with the evening meal 40 MG - Active alprazolam 0.5 mg tablet take 1 tablet by oral route every day 0.5 MG - Active aspirin 81 mg chewable tablet chew 1 tablet by oral route every day 81 MG - Active clopidogrel 75 mg tablet take 1 tablet by oral route every day 75 MG - Active isosorbide mononitrate ER 60 mg tablet,extended release 24 hr take 1 tablet by oral route 2 times every day in the morning 60 MG - Active Levemir FlexTouch U-100 Insulin 100 unit/mL (3 mL) subcutaneous pen inject by subcutaneous route per prescriber's instructions. Insulin dosing requires individualization. - Active bumetanide 0.5 mg tablet take 1 tablet by oral route every day 0.5 MG - No Longer Active potassium chloride ER 10 mEq tablet,extended release take 1 tablet by oral route every day with food 10 MEQ - No Longer Active Ozempic 0.25 mg or 0.5 mg (2 mg/1.5 mL) subcutaneous pen injector inject (0.25MG) by subcutaneous route every week for 4 weeks , then inject 0.5 mg subcutaneously once weekly for 2 weeks - No Longer Active Novolog Flexpen U-100 Insulin aspart 100 unit/mL (3 mL) subcutaneous inject by subcutaneous route per prescriber's instructions. Insulin dosing requires individualization. 0.00 - No Longer Active amlodipine 5 mg tablet take 1 tablet by oral route every day 5 MG - No Longer Active carvedilol 25 mg tablet take 1 tablet by oral route 2 times every day with food 25 MG - No Longer Active Jardiance 10 mg tablet take 1 tablet by oral route every day in the morning 10 MG - No Longer Active Procedures Procedure Date Ophthal DX Image Post Retina I And R Uni Or Bi Eye Exam Established Patient Comprehensi ve 1 Or More Visits Fundus Photos No Charge Bilateral Ophthal DX Image Post Retina I And R Uni Or Bi OFFICE/OUTPATIENT VISIT, EST, Low Ophthal DX Imag Posterior Seg I And R Un i Or Bi OFFICE/OUTPATIENT VISIT, EST, Low Intravitreal Injection Of Phamacologic A gent Ophthal DX Image Post Retina I And R Uni Or Bi Bevacizumab injection Intravitreal Injection Of Phamacologic A gent Ophthal DX Image Post Retina I And R Uni Or Bi Bevacizumab injection OFFICE/OUTPATIENT VISIT, EST, Moderate S Ophthal DX Image Post Retina I And R Uni Or Bi Eye Exam Established Patient Comprehensi ve 1 Or More Visits Ophthal DX Image Post Retina I And R Uni Or Bi OFFICE/OUTPATIENT VISIT, EST, Moderate A Intravitreal Injection Of Phamacologic A gent Ophthal DX Image Post Retina I And R Uni Or Bi Bevacizumab injection OFFICE/OUTPATIENT VISIT, EST, Moderate J - Intravitreal Injection Of Phamacologic A gent Ophthal DX Image Post Retina I And R Uni Or Bi Bevacizumab injection Intravitreal Injection Of Phamacologic A gent Bevacizumab injection OFFICE/OUTPATIENT VISIT, NEW Advance Directives Directive Yes / No Effective Date File Name No Information Encounters Encounter Description Practice Location Reason(s) For Visit Diagnoses Date Provider Providers Copied on Encounter [facility], [address], [place], [address], [place] tel:[phone] TRACI Guardado DM with severe NPDR with ME (chief complaint) 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, r eyeType 2 diab with mod nonp rtnop without macular edema, l eyeCombined forms of age-related cataract, bilateralAsymmetry of optic nerve, bilateral 4 El Rashjuly. [address], [address], [place], [place], [id number] , [place]. tel:[phone] Referring Provider: July Kavita, [address], [place], [address] . tel:[phone] OFFICE/OUTPA TIENT VISIT, EST, Low [facility], [address], [place], [address], [place] tel:[phone] TRACI Guardado Follow Up of 3 month NPDR w/ME (chief complaint) Essential (primary) hypertensionCombine d forms of age-related cataract, bilateral 3 El Rashedy July. [address], [address], [place], [place], [id number] , [place]. tel:[phone] Specialist : Kuldip Larson, [address] [place], [address]. tel:[phone] erring Provider: July Flip Stockton, [address], [place], [address] . tel:[phone] [facility], [address] [place], [address], [place] tel: [phone] RVA Mckeon No Information 3 Flip Stockton July. [address], [address] [facility], [place], [place], [id number] , [place]. tel:[phone] OFFICE/OUTPA TIENT VISIT, EST, Low [facility], [address] [place], [address], [place] tel: [phone] RVA Smiley NPDR (chief complaint) Age-related nuclear cataract, bilateralEssential (primary) hypertension 3 Flip Stockton July. [address], [address] [facility], [place], [place], [id number] , [place]. tel:[phone] Referring Provider: Kuldip Larson, [address] [place] [address], [address]. tel:[phone] [facility], [address] [place], [address], [place] tel:[phone] RVA Smiley Type 2 Dm with severe NPDR with ME (chief complaint) No Information 2 Alkaliby Ahmed. [address], [address], [place], [place], [id number] , [place]. tel:[phone] Referring Provider: Kuldip Larson, [address] [place] [address]. tel:[phone] OFFICE/OUTPA TIENT VISIT, EST, Moderate [facility], [address] [place], [address], [place] [phone] RVA Geo diabetic retinopathy (chief complaint) No Information 2 Alkaliby Ahmed. [address], [address], [place], [place], [id number] , [place]. tel:[phone] Referring Provider: Kuldip Larson, [address] [place], [address]. tel:[phone] [facility], [address] [place], [address], [place] tel:[phone] RVA Geo NPDR (chief complaint)de creased vision (chief complaint) Age-related nuclear cataract, bilateralEssential (primary) hypertension 2 Alkaliby Ahmed. [address], [place] [address], [place], [place], [id number] , [place]. tel:[phone] Referring Provider: No Ref Doc No Referring Doc. OFFICE/OUTPA TIENT VISIT, EST, Moderate [facility], [address] [place], [place], [facility], [place] tel:[phone] RVA Geo diabetic retinopathy (chief complaint) Type 2 diab with mod nonp rtnop without macular edema, l eyeAge-related nuclear cataract, bilateralEssential (primary) hypertension 2 Alkaliby Ahmed. [address], [place] [address], [place], [place], [id number] , [place]. tel:[phone] Referring Provider: Kuldip Larson, [address] [place], [address]. tel:[phone] OFFICE/OUTPA TIENT VISIT, EST, Moderate [facility], [address] [place], [place], [facility], [place] tel:[phone] RVA Geo diabetic retinopathy (chief complaint)ne w floaters (chief complaint) 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, r eyeType 2 diab with mod nonp rtnop without macular edema, l eyeAge-related nuclear cataract, bilateralEssential (primary) hypertension 2 Alkaliby Ahmed. [address], [place] [address], [place], [place], [id number] , [place]. tel:[phone] Referring Provider: Kuldip Larson, [address] [place], [address]. tel:[phone] [facility], [address] [place], [address], [place] [phone] DEENakul Geo NPDR (chief complaint)st able vision (chief complaint) Type 2 diab with mod nonp rtnop without macular edema, l eyeRetinal hemorrhageAge-relat ed nuclear cataract, bilateralEssential (primary) hypertension Oct-2 1 Jeremiah Manley. [address], [address], [place], [place], [id number] , [place]. [phone] Referring Provider: Kuldip Mota, [id number] [place] [address], [facility]. tel:[phone] OFFICE/OUTPA TIENT VISIT, NEW [facility], [address] [place], [address], [place] [phone] TRACI Guardado possible macular edema (chief complaint) Age-related nuclear cataract, bilateralEssential (primary) hypertensionType 2 diab with mod nonp rtnop without macular edema, l eyeRetinal hemorrhage Sep-0 1 Jeremiah Manley. [address], [address], [place], [place], [id number] , [place]. [phone] Specialist : Kuldip Larson, [address] [place] [address], [facility]. tel:[phone] erring Provider: Kuldip Mota, [address] [place] [address], [facility]. tel:[phone] Family History Family Member Type Diagnosis Age At Onset Mother Problem Diabetes mellitus Mother Problem hypertension Payers Payer name Insurance type Covered democrat ID Glenna lugo(s) Medicare [place] MB [id number] Medical [place] Medicare Supplement CI [id number] Social History Type Description Quantity Date Captured Comments Alcohol Use Details Unknown Caffeine Use Details Unknown Tobacco Use Status Ex-cigarette smoker 024 Smoking Status Former smoker Smoking Tobacco Use Details Cigarette: Age Started: 19, Age Stopped: 41, Years Used 23 Cigarette: 40 Cigarettes per day, Pack Year: 44 Sex Male Vital Signs Date / Time: Height Weight BMI Pulse Rate Blood Pressure Temperature Respiratory Rate Body Surface Area Head Circumference Head Circ. Percentile Wt./Neftali. Percentile BMI percentile Pulse Ox Inhaled Ox 10:29 AM 129/68 mm[Hg] Chief Complaint And Reason For Visit From encounter dated '04/04/2023 09:40'. DM with severe NPDR with ME (chief complaint). Description: The 72 year old male presents for 9 month evaluation of DM with severe NPDR with ME in the right and left eyes. Patient states he has not noticed any vision changes. Patient denies any floaters or flashes of light. Patient states he had been in the hospital when his last appointment was scheduled. Reason For Referral Reason For Referral No Information Plan Of Treatment Date Type Action Status Goal Tobacco cessation counseling completed Goal Tobacco cessation counseling completed Goal Tobacco cessation counseling completed History Of Present Illness Encounter Date Complaint History Of Prese nt Illness DM with severe NPDR with ME The 72 year old male presents for 9 month evaluation of DM with severe NPDR with ME in the right and left eyes. Patient states he has not noticed any vision changes. Patient denies any floaters or flashes of light. Patient states he had been in the hospital when his last appointment was scheduled. Follow Up of 3 month NPDR w/ME T he 71 year old male presents for evaluation 3 month Follow Up and treatment of NPDR w/ME in the right and left eyes. Pt reports a mild decrease in the distance and near vision, and has a few floaters but not more than normal since last exam. He denies flashes of light, and ocular pain. He is a type 2 DM Pt. NPDR The 71 year old male presents for evaluation of NPDR in both eyes. The patient reports his vision seems to fluctuate frequently. He denies eye pain, floaters and flashes. Type 2 Dm with severe NPDR with ME The 71 year old male presents for 2 month evaluation . Patient states that his vision is stable. Patient states he does have a few floaters in his right eye, but he denies any flashes of light. diabetic retinopathy The 71 year old male presents for evaluation of diabetic retinopathy in the right eye and left eye. Patient reports a decrease in both distance and near vision since his last visit about 1 month ago. He also states that things are not as bright as they used to be OU. Patient notes he has floaters in the right eyes only, but denies ocular pain or flashes of light in both eyes. NPDR The 71 year old male presents for evaluation of NPDR in the right eye. decreased vision The patient rep orts decreased vision in both eyes since last visit. Patient discussed difficulty reading as well as distance vision is hazy . Patient denies eye pain and flashes. Associated symptoms include: floaters. diabetic retinopathy The 70 year old male presents for evaluation of diabetic retinopathy in both eyes. The patient reports stable vision since last exam 3 months ago. The patient denies eye pain and flashes. new floaters The patient repo rts two new floaters in the right eye. It started about 2 weeks ago. The onset was sudden. The symptom is intermittent. The patient denies eye pain and flashes. diabetic retinopathy The 70 year old male presents for evaluation of diabetic retinopathy in both eyes. NPDR The 70 year old male presents for evaluation of NPDR in both eyes. stable vision The patient stat es stable vision in both eyes, since last visit. It affects both near and distance vision. The symptom is all of the time. The condition is unchanged. Patient denies floaters. possible macular edema The 70 ye ar old male presents for evaluation of possible macular edema in both eyes. The patient reports noticing blurry vision. It started about 4 months ago, especially when driving. The patient scheduled a routine eye exam with Dr. Larson and was told of some fluid and swelling in both eyes. The patient denies eye pain and flashes. 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, r eye Impression/Plan Related to Combi fabian forms of age-related cataract, bilateral Impression/Plan Related to Essen tial (primary) hypertension Impression/Plan Related to 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, bilateral Impression/Plan Related to 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, bilateral Impression/Plan Related to Essen tial (primary) hypertension Impression/Plan Related to Age-r elated nuclear cataract, bilateral Impression/Plan Related to Essen tial (primary) hypertension Impression/Plan Related to Age-r elated nuclear cataract, bilateral Impression/Plan Related to 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, bilateral return 5 weeks FU/OCT/ Poss AVN OS Related to 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, bilateral Impression/Plan Related to 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, bilateral Return in 1 month wi dell Burton MD for follow up and OCT Related to Type 2 diab with severe nonp rtnop without macular edema, bi Impression/Plan Related to Age-r elated nuclear cataract, bilateral Impression/Plan Related to Essen tial (primary) hypertension Impression/Plan Related to Type 2 diab with severe nonp rtnop without macular edema, bi Return in 3 months w ashok Burton MD for follow up and OCT Related to Type 2 diab with mild nonp rtnop with macular edema, r eye Impression/Plan Related to Type 2 diab with mod nonp rtnop without macular edema, l eye Impression/Plan Related to Type 2 diab with mild nonp rtnop with macular edema, r eye Impression/Plan Related to Essen tial (primary) hypertension Impression/Plan Related to Age-r elated nuclear cataract, bilateral Return in 3 months w ashok Manuel Burton MD for follow up, OCT, possible Avastin OD Related to 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, r eye Impression/Plan Related to Essen tial (primary) hypertension Impression/Plan Related to Age-r elated nuclear cataract, bilateral Impression/Plan Related to Type 2 diab with mod nonp rtnop without macular edema, l eye Impression/Plan Related to 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, r eye Return in 3 months w ashok Vineet Daniels MD for follow up, OCT, possible Avastin OD Related to Type 2 diab with severe nonp rtnop with macular edema, r eye Oct- Impression/Plan Related to Type 2 diab with mod nonp rtnop without macular edema, l eye Oct- Impression/Plan Related to Type 2 diab with severe nonp rtnop with macular edema, r eye Oct- Impression/Plan Related to Essen tial (primary) hypertension Impression/Plan Related to Age-r elated nuclear cataract, bilateral Oct- Impression/Plan Related to Retin al hemorrhage Return in Related to Type 2 diab with severe nonp rtnop with macular edema, r eye Impression/Plan Related to Type 2 diab with severe nonp rtnop with macular edema, r eye Impression/Plan Related to Essen tial (primary) hypertension Impression/Plan Related to Age-r elated nuclear cataract, bilateral Impression/Plan Related to Retin al hemorrhage Impression/Plan Related to Type 2 diab with mod nonp rtnop without macular edema, l eye Assessments Type Assessment Date assessment 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
--- OUTSIDE RECORDS SUMMARY | 2024-10-12 20:33 | XMS_ITS | Continuity of Care Document ---
Author Organization [facility] Address [address] [place] [address] Phone Care Team Providers Care Social Work Assistant Name Role Phone Harley Goodman DO Primary Care Provider [phone] DO Attending Provider Codi Easley CMA Attending Provider Unavaila Harley Callahan DO Attending Provider Viky Kwong APRN Attending Provider Franco Youngblood MD Attending Provider [phone] NON STAFF Attending Provider Unavailable Jackson Mcmanus MD Attending Provider Provider, Outside Attending Provider Unavailable Lyssa Alcantar DO Attending Provider Meghan Elizalde MD Attending Provider [phone] Care Teams Visit Care Team Team Status: Active Member Role Status Dates Harley Goodman DO Primary Care Provider Active Start: July 15, [address] DO Attending Provider Active Sta rt: July 15, 2024 Visit Care Team Team Status: Active Member Role Status Dates Harley Goodman DO Primary Care Provider Active Start: July 16, 2024 Codi Easley CMA Attending Provider Active Start: July 16, 2024 Visit Care Team Team Status: Inactive Member Role Status Dates Harley Goodman DO Primary Care Provider Active Start: July 27, 2024 End: July 27, 2024 Harley Goodman DO Attending Provider Active Sta rt: July 27, 2024 End: July 27, 2024 Visit Care Team Team Status: Inactive Member Role Status Dates Harley Goodman DO Primary Care Provider Active Start: August 03, 2024 End: August 03, 2024 Viky Kwong APRN Attending Provider Active Start: August 03, 2024 End: August 03, 2024 Visit Care Team Team Status: Active Member Role Status Dates Harley Goodman DO Primary Care Provider Active Start: August 13, 2024 Franco Youngblood MD Attending Provider Active St art: August 13, 2024 Visit Care Team Team Status: Active Member Role Status Dates Harley Goodman DO Primary Care Provider Active Start: August 21, 2024 Codi Easley CMA Attending Provider Active Start: August 21, 2024 Visit Care Team Team Status: Inactive Member Role Status Dates Harley Goodman DO Primary Care Provider Active Start: August 25, 2024 End: August 25, 2024 Harley Goodman DO Attending Provider Active Sta rt: August 25, 2024 End: August 25, 2024 Visit Care Team Team Status: Active Member Role Status Dates Harley Goodman DO Primary Care Provider Active Start: August 27, 2024 Harley Goodman DO Attending Provider Active Sta rt: August 27, 2024 Visit Care Team Team Status: Inactive Member Role Status Dates NON STAFF Attending Provider Active Start: 2024 End: September 21, 2024 Visit Care Team Team Status: Active Member Role Status Dates Jackson Mcmanus MD Attending Provider Active Start: September 21, 2024 Visit Care Team Team Status: Active Member Role Status Dates Outside Provider Attending Provider Active Start : September 26, 2024 Patient Care Team Team Status: Active Member Role Status Dates Harley Goodman DO Primary Care Provider Active Start: October 11, 2024 Lyssa Alcantar DO Attending Provider Active Start: October 11, 2024 Patient Care Team Team Status: Active Member Role Status Dates Harley Goodman DO Primary Care Provider Active Start: October 12, 2024 Meghan Elizalde MD Attending Provider Active Sta rt: October 12, 2024 Chief Complaint and Reason for Visit Chief Complaint Admit Date Amb Documentation July 16, 2024 9:0 8am [facility] ER; blood in urine-HIGH RISK July 012024 11:19am 3 month August 03, 2024 9:17am Amb Documentation August 21, 2024 1:11p m [facility] f/u August 25, 2024 11:31 am Unknown September 21, 2024 9:25 am Reason for Visit Admit Date Chronic [...] nonproliferative diabetic retinopathy August 25, 2024 11:31am Allergies, Adverse Reactions, Alerts Allergen Type Severity Reaction Last Updated Verified Status Comments semaglutide Allergy Moderate Gastrointestina l Upset August 25, 2024 11:33am Yes Active constipation Social History Smoking Status Status Start Date End Date Date of Observa tion Ex-smoker (finding) May 28, 2024 10:59am Observation Status Observation Response Date of Response Legal Sex Male (finding) Sex Assigned At Male October Family History Relationship Condition Age at Onset Recorded Date/T maximo brother Malignant neoplasm Unknown Diabetes mellitus Unknown Heart disease Unknown daughter Crohn's disease Unknown father Unknown Malignant neoplasm Unknown family member Unknown mother Diabetes mellitus Unknown Heart disease Unknown Unknown Problems Active Problems Medical Problem Onset Date Status Comments CHRYSTAL (generalized anxiety disorder) Unknown Active Screening PSA (prostate spec ific antigen) Unknown Active PSA: 1.37 - 07/2023 Type 2 diabetes 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 Unknown Active Type 2 diabetes mellitus wit h hyperglycemia Unknown Active Type 2 diabetes mellitus wit h diabetic peripheral angiopathy without gangrene Unknown Active MITRA:> 1.30 consisten t w/ calcified, noncompressible arterial dias - 12/2023 Secondary hyperparathyroidism Unknown Active Polyuria Unknown Active Dietary counseling and surveillance Unknown Activ e CKD (chronic kidney disease) stage 3, GFR 30-59 ml/min Unknown Active Atrioventricular block, third degree Unknown Acti ve PPM 03/2022, BiV ICD 01/2023 Hypertensive chronic kidney disease with stage 1 through stage 4 chronic kidney disease, or unspecified chronic kidney disease Unknown Active Hypercholesterolemia Unknown Active Ischemic cardiomyopathy Unknown Active CABG x - 1995,PCI/stent x 8,Patent SVG x3 and MENJIVAR to LAD, no intervention - 01/2024,PCI/stent SVG to PDA - 09/2023,Stress Test: anterior reversible defect - 07/2024 Chronic HFrEF (heart failure with reduced ejection fraction) Unknown Active Echo: LVEF 25 %, LVH, normal RV size/function - 01/2024,Echo: LVEF 25%, LVH, normal RV size/function - 07/2024,BiV MEDICAL PAYMENT POSTER-D 01/2023 Chronic kidney disease Unknown Active Pulmonary nodule Unknown Active CT: 8mm RML nodule - T: 6mm RML nodule - T: 7mm RML nodule - 3CT: 6.5mm RML nodule - 07/2023 Myocardial infarct Unknown Active 12/2022, 9 total in lifetime Gross hematuria Unknown Active Hypertensive chronic kidney disease Unknown Activ e Ground glass opacity present on imaging of lung Unknown Active 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, bilateral Unknown Active Transitional cell bladder cancer Unknown Active Cystoscopy for hematuria - 07/2024,TURB - 09/2024 GERD (gastroesophageal reflu x disease) Unknown Active HTN (hypertension) Unknown Active Hyperkalemia Unknown Active Inactive/Resolved Problems Medical Problem Onset Date Status Comments Elevated troponin Unknown Resolved Non-ST elevation myocardial infarction (NSTEMI), initial care episode Unknown Resolved BMI 28.0-28.9,adult Unknown Resolved BMI 27.0-27.9,adult Unknown Resolved Hypoxia Unknown Resolved Chest pain Unknown Resolved Medications Medication Status Dose Units Route Directions Qty Days St art Date Stop Date End Date Instructions Adherence Clopidogrel 75 mg tablet Discont inued 0 .ROUTE .COMPLEX June 18, 2023 4:03pm October 17, 2023 10:10 am TAKE 1 TABLET BY MOUTH EVERY DAY Alprazolam 0.5 mg tablet Discont inued 0.5 MG PO Three times daily August 06, 2023 2:14pm Novem olivia 2023 9:29p m Pen Needle, Diabetic (Bd Ultra-Fine Latoya Pen Needle) 32 gauge x 5/32 needle Active 0 .Route November 21, 2023 12:00a m As directed Use with insulin pen 6day Pantoprazol e 40 mg tablet,angelina yed release (DR/EC) Discont inued 0 .ROUTE .COMPLEX 2023 8:47pm Febr2024 12:22 pm TAKE 1 TABLET BY MOUTH DAILY ON AN EMPTY STOMACH FOLLOWED BY BREAKFAST 30 MINUTES AFTER FOR 90 DAYS Alprazolam 0.5 mg tablet Discont inued 0.5 MG PO Three times daily as needed for anxiety er 2023 9:29pm August 16, 2024 5:16p m Empaglifloz in 10 mg tablet Active 10 MG PO Daily 2024 5:18pm *star* Unknown Isosorbide Mononitrate 60 mg tablet extended release 24 hr Discont inued 0 .ROUTE .COMPLEX 180 2024 5:15pm u 2024 12:22 pm TAKE 1 TABLET BY MOUTH TWICE A DAY FOR 30 DAYS Clopidogrel 75 mg tablet Discont inued 0 .ROUTE .COMPLEX 90 2024 7:29pm Febru 2024 12:22 pm TAKE 1 TABLET BY MOUTH EVERY DAY Clopidogrel 75 mg tablet Active 75 MG PO Every morning 2024 1:00am TAKE 1 TABLET BY MOUTH EVERY DAY Unknown Isosorbide Mononitrate 60 mg tablet extended release 24 hr Active 60 MG PO Every morning 2024 1:00am TAKE 1 TABLET BY MOUTH TWICE A DAY FOR 30 DAYS Unknown Pantoprazol e 40 mg tablet,angelina yed release (DR/EC) Active 40 MG PO Every morning 2024 1:00am TAKE 1 TABLET BY MOUTH DAILY ON AN EMPTY STOMACH FOLLOWED BY BREAKFAST 30 MINUTES AFTER FOR 90 DAYS Unknown Liraglutide (Victoza 3-Michelet) 0.6 mg/0.1 mL (18 mg/3 mL) pen injector Discont inued 1.8 MG SUBCUT Every morning 2024 1:00am June 17, 2024 10:09 am inject 0.6mg subcutaneousl y once daily x 7 days; then 1.2mg daily, not to exceed 1.8mg/day subcut Liraglutide (Victoza 3-Michelet) 0.6 mg/0.1 mL (18 mg/3 mL) pen injector Discont inued 1.8 MG SUBCUT Every morning June 17, 2024 10:06a m August 03, 2024 9:38a m Mupirocin 2 % ointment Active 1 APPLIC TOPICA L Twice daily 20 01July 30, 2024 12:00a m Unknown Alprazolam 0.5 mg tablet Active 0.5 MG PO Three times daily as needed for anxiety 90 August 16, 2024 5:16pm Unknown Levofloxaci n 250 mg tablet Active 0 PO Daily 15 August 27, 2024 12:00a m 2 tablets PO on day one, followed by 1 tablet daily Unknown Carvedilol 25 mg Tablet Discont inued 12.5 MG PO Twice daily June 22, 2020 12:00a m Octob er 2021 2:28p m Lisinopril 20 mg Tablet Discont inued 20 MG PO every evening at 6 PM. June 22, 2020 12:00a m June 18, 2023 10:56 am Famotidine 40 mg Tablet Discont inued 40 MG PO Twice daily June 22, 2020 12:00a m July 10, 2021 9:56a m Amlodipine 5 mg Tablet Discont inued 10 MG PO Daily June 22, 2020 12:00a m June 18, 2023 11:01 am Isosorbide Mononitrate 60 mg Tablet Extended Release 24 Hr Discont inued 60 MG PO Daily June 22, 2020 12:00a m Octob er 2021 2:28p m Alprazolam 0.5 mg Tablet Discont inued 0.5 MG PO Three times daily June 22, 2020 12:00a m August 06, 2023 2:15p m Aspirin 81 mg Tablet Active 81 MG PO Every morning June 22, 2020 12:00a m Unknown Lovastatin 20 mg Tablet Discont inued 40 MG PO Every evening June 22, 2020 12:00a m June 18, 2023 11:03 am Empaglifloz in (Jardiance) 10 mg Tablet Discont inued 10 MG PO Daily June 22, 2020 12:00a m June 18, 2023 10:56 am Amoxicillin -Pot Clavulanate (Augmentin) 875-125 mg tablet Discont inued 1 TAB PO Twice daily June 24, 2020 12:00a m July 11, 2020 5:52p m Prednisone 20 mg tablet Discont inued 40 MG PO Daily 20 June 24, 2020 12:00a m July 11, 2020 5:52p m Insulin Regular Human (Novolin R Regular U100 Insulin) 100 unit/mL Solution Discont inued 1 UNIT SUBCUT As Directed July 11, 2020 12:00a m Octob er 2021 3:42p m sliding scale Insulin Nph Isoph U-100 Human (Novolin N Nph U-100 Insulin) 100 unit/mL Suspension Discont inued 1 UNIT SUBCUT As Directed July 11, 2020 12:00a m Octob er 2021 3:42p m sliding scale Clopidogrel 75 mg Tablet Discont inued 75 MG PO Daily July 11, 2020 12:00a m July 13, 2020 4:14p m Ticagrelor (Brilinta) 90 mg Tablet Discont inued 90 MG PO Twice daily 180 90 July 13, 2020 12:00a m July 10, 2021 9:59a m Pantoprazol e 40 mg tablet,angelina yed release (DR/EC) Discont inued 40 MG PO Daily July 10, 2021 12:00a m August 12, 2023 8:44a m Semaglutide (Ozempic) 0.25 mg or 0.5 mg(2 mg/1.5 mL) Pen Injector Discont inued 0.5 MG SUBCUT every week July 10, 2021 12:00a m June 18, 2023 11:03 am Saturday Multivitami n Tablet Discont inued 1 TAB PO Daily [facility] r 2021 12:00a m August 03, 2024 9:41a m Famotidine 40 mg Tablet Discont inued 40 MG PO Twice daily [facility] r 2021 12:00a m Octob er 2021 7:52p m Cyanocobala min (Vitamin B-12) (Vitamin B-12) 1,000 mcg Tablet Discont inued 1000 MCG PO Daily [facility] r 2021 12:00a m June 18, 2023 11:08 am Clopidogrel 75 mg Tablet Discont inued 75 MG PO Daily [facility] r 2021 12:00a m June 18, 2023 4:03p m Loratadine 10 mg Tablet Discont inued 10 MG PO Daily [facility] r 2021 12:00a m Febru lee ann 2024 12:19 pm Insulin Aspart U-100 (Novolog Flexpen U-100 Insulin) 100 unit/mL (3 mL) Insulin Pen Discont inued 1 UNIT SUBCUT Three times daily [facility] r 2021 12:00a m June 18, 2023 11:08 am 5 units at times depending on blood sugar Insulin Detemir U-100 (Levemir Flexpen) 100 unit/mL (3 mL) Insulin Pen Discont inued 1 UNIT SUBCUT Twice daily [facility] r 2021 12:00a m Octob er 2021 6:27p m Carvedilol 25 mg Tablet Discont inued 25 MG PO Twice daily with meals 60 30 [facility] r 2021 12:00a m June 18, 2023 11:01 am Isosorbide Mononitrate 60 mg Tablet Extended Release 24 Hr Discont inued 60 MG PO Twice daily 60 30 [facility] r 2021 12:00a m August 12, 2023 8:46a m Cyanocobala min (Vitamin B-12) (Vitamin B-12) 1,000 mcg tablet Discont inued 1000 MCG PO .every other day June 18, 2023 11:02a m July 02, 2023 9:03a m Insulin Aspart U-100 (Novolog Flexpen U-100 Insulin) 100 unit/mL (3 mL) insulin pen Discont inued 5 UNIT SUBCUT Three times daily June 18, 2023 11:02a m June 18, 2023 12:13 pm 5 units at times depending on blood sugar Multivitami n tablet Active 1 TAB PO Every morning August 03, 2024 9:41am Unknown Isosorbide Mononitrate 60 mg tablet extended release 24 hr Discont inued 60 MG PO Twice daily August 12, 2023 8:43am Febru lee ann 2024 5:15p m Clopidogrel 75 mg tablet Discont inued 75 MG PO Daily October 17, 2023 10:06a m Febru lee ann 2024 7:29p m Spironolact one 25 mg tablet Active 25 MG PO Every morning October 17, 2023 12:00a m Unknown Metoprolol Succinate 50 mg tablet extended release 24 hr Discont inued 50 MG PO Daily October 17, 2023 12:00a m Octob er 2023 9:36a m Pantoprazol e 40 mg tablet,angelina yed release (DR/EC) Discont inued 40 MG PO Daily October 17, 2023 12:00a m Cinthyae er 2023 8:47p m flash glucose sensor (FreeStyle Arnaud 2 Sensor) Active .Route Octobe r 2023 12:00a m Empaglifloz in 10 mg tablet Discont inued 10 MG PO Daily Octobe r 2023 10:02a m Octob er 2023 10:05 am *star* Empaglifloz in 10 mg tablet Discont inued 10 MG PO Daily Octobe r 2023 10:04a m Janua ry 2024 5:18p m *star* Ranolazine 500 mg tablet extended release 12 hr Active 500 MG PO Twice daily Novemb er 2023 1:00am Unknown Amlodipine 5 mg tablet Active 5 MG PO Daily August 25, 2024 12:00a m Unknown Semaglutide 1 mg/dose (4 mg/3 mL) pen injector Discont inued 1 MG SUBCUT every week June 18, 2023 12:00a m June 18, 2023 11:15 am Sacubitril- Valsartan (Entresto) 24-26 mg tablet Discont inued 1 TAB PO Twice daily June 18, 2023 12:00a m June 18, 2023 11:59 am Empaglifloz in 10 mg tablet Discont inued 10 MG PO Daily June 18, 2023 12:00a m Octob er 2023 10:02 am Dapaglifloz in Propanediol (Farxiga) 10 mg tablet Discont inued 10 MG PO Daily June 18, 2023 12:00a m June 18, 2023 11:58 am Rosuvastati n 40 mg tablet Active 40 MG PO Daily at bedtime June 18, 2023 12:00a m Unknown Docusate Sodium 100 mg capsule Discont inued 100 MG PO Daily June 18, 2023 12:00a m August 12, 2023 8:42a m Lisinopril 2.5 mg tablet Discont inued 2.5 MG PO Twice daily June 18, 2023 12:00a m June 18, 2023 11:58 am Bumetanide 0.5 mg tablet Discont inued 0.5 MG PO Daily as needed June 18, 2023 12:00a m August 12, 2023 8:42a m Metoprolol Succinate 100 mg tablet extended release 24 hr Discont inued 150 MG PO Daily June 18, 2023 12:00a m October 17, 2023 10:10 am Insulin Aspart U-100 (Novolog Flexpen U-100 Insulin) 100 unit/mL (3 mL) insulin pen Discont inued 0 SUBCUT .COMPLEX June 18, 2023 12:00a m October 17, 2023 10:10 am 6-8-10-12 units according to meal size; 4 units for snack. Corrective scale 1:20 ac, tid (HS >200 1/2 dose) Subcutaneous ac, hs; (expect up to 40 units/day) Nitroglycer in (Nitrostat) 0.4 mg tablet, sublingual Active 0.4 MG SUBLIN GUAL Every 5 minutes x 3 doses as needed for chest pain June 18, 2023 12:00a m Unknown Insulin Detemir U-100 (Levemir Flexpen) 100 unit/mL (3 mL) insulin pen Discont inued 5 UNIT SUBCUT Twice daily June 18, 2023 12:00a m October 17, 2023 10:10 am Insulin Aspart U-100 (Novolog Flexpen U-100 Insulin) 100 unit/mL (3 mL) insulin pen Discont inued 0 SUBCUT .COMPLEX October 17, 2023 10:07a m October 17, 2023 10:56 am 12 units according to meal size; 4-7 units for snack. Corrective scale 1:20 ac, tid (HS >200 1/2 dose) Subcutaneous ac, hs; (expect up to 40 units/day) Insulin Detemir U-100 (Levemir Flexpen) 100 unit/mL (3 mL) insulin pen Discont inued 7 UNIT SUBCUT Twice daily October 17, 2023 10:08a m Octob er 2023 9:19a m Metoprolol Succinate 100 mg tablet extended release 24 hr Discont inued 100 MG PO Daily October 17, 2023 10:09a m Octob er 2023 9:42a m Insulin Aspart U-100 (Novolog Flexpen U-100 Insulin) 100 unit/mL (3 mL) insulin pen Discont inued 0 SUBCUT .COMPLEX October 17, 2023 10:56a m August 03, 2024 10:18 am 6-8-10-12 units according to meal size ac tid. Corrective scale 1:20 ac, tid (HS >200 1/2 dose) Subcutaneous ac, hs; (expect up to 40 units/day) Insulin Detemir U-100 (Levemir Flexpen) 100 unit/mL (3 mL) insulin pen Discont inued 5 UNIT SUBCUT Twice daily Octobe r 2023 9:19am 2024 10:44 am Metoprolol Succinate 100 mg tablet extended release 24 hr Discont inued 150 MG PO Daily Octobe r 2023 9:33am 2024 10:48 am Metoprolol Succinate 100 mg tablet extended release 24 hr Discont inued 150 MG PO Every morning 2024 10:46a m August 03, 2024 9:41a m Metoprolol Succinate 100 mg tablet extended release 24 hr Active 100 MG PO Every morning August 03, 2024 9:40am Unknown Lisinopril 2.5 mg tablet Discont inued 2.5 MG PO Twice daily July 02, 2023 12:00a m [facility] 2023 10:45 am Cholecalcif zayra (Vitamin D3) 25 mcg (1,000 unit) capsule Active 25 MCG PO Every morning July 02, 2023 12:00a m Unknown Thiamine Hcl (Vitamin B1) 100 mg tablet Discont inued 100 MG PO Every 48 hours July 02, 2023 12:00a m August 12, 2023 8:46a m Thiamine Hcl (Vitamin B1) 100 mg tablet Active 100 MG PO every other day August 12, 2023 8:45am Unknown Metoprolol Succinate 50 mg tablet extended release 24 hr Discont inued 150 MG PO Daily 2024 1:00am 2024 10:48 am Insulin Degludec (Tresiba Flextouch U-100) 100 unit/mL (3 mL) insulin pen Discont inued 14 UNIT SUBCUT Every morning 2024 1:00am August 03, 2024 9:41a m Metoprolol Succinate 50 mg tablet extended release 24 hr Discont inued 50 MG PO Daily 2024 10:47a m 2024 12:19 pm Liraglutide (Victoza 3-Michelet) 0.6 mg/0.1 mL (18 mg/3 mL) pen injector Discont inued 0 SUBCUT .COMPLEX 9 2024 1:00am 2024 12:22 pm inject 0.6mg subcutaneousl y once daily x 7 days; then 1.2mg daily, not to exceed 1.8mg/day subcut Insulin Degludec (Tresiba Flextouch U-100) 100 unit/mL (3 mL) insulin pen Active 16 UNIT SUBCUT Every morning August 03, 2024 9:38am Unknown Metoprolol Succinate 50 mg tablet extended release 24 hr Active 50 MG PO daily August 03, 2024 12:00a m Unknown Lisinopril 2.5 mg tablet Active 2.5 MG PO Twice daily August 03, 2024 12:00a m Unknown Liraglutide (Victoza 3-Michelet) 0.6 mg/0.1 mL (18 mg/3 mL) pen injector Active 1.8 MG SUBCUT Daily August 03, 2024 12:00a m star * Unknown Insulin Aspart U-100 (Novolog Flexpen U-100 Insulin) 100 unit/mL (3 mL) insulin pen Active 0 SUBCUT .COMPLEX August 03, 2024 10:17a m 8-10-15-18 units according to meal size ac tid. 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 Vaccine, 23 valent January 17, 2018 Medical Equipment Device Date Implanted Device Details CL STENT DC 2.0 X 15 July 12, 2020 Procedures Procedure Date Performed Status Urine Culture September 21, 2024 completed Relevant Diagnostic Tests and/or Laboratory Data Laboratory Results Test Collection Date/Time Result Date/Time Result Interpretation Reference Range Result Comment Performing Site Urine Culture Reflexed July 15, 2024 9:21am NO Anion Gap July 15, 2024 9:45am July 15, 2024 9:45am 12.0 Basophil s # (Auto) July 15, 2024 9:45am July 15, 2024 9:45am 0.1 10 3/uL 0.0-0.1 Bedside Hemoglob in A1c August 03, 2024 9:24am August 03, 2024 9:52am 6.5 % Bedside Glucose August 03, 2024 9:49am August 03, 2024 9:49am 147 D-Dimer Quantita tive (PE/DVT) August 13, 2024 12:20am August 13, 2024 12:20am 0.75 mg/L FEU Above upper panic limits <=0.59 RESULTS CALLED TO JOSE FENTON RN @BY Chelsey benitez at [id number] ses in D-Dimer concentrat ion observed withthromb oembolic events can be variable due to localizati on,size, and age of the thrombus. Therefore, a thromboemb olicevent cannot be diagnosed with certainty on the basis of thereferen ce range. D-Dimers may also be elevated for a varietyof disorders including advanced age, , coronarydi sease, cancer, liver disease, infection, inflammati on,hematom a, DIC, trauma, post-surge ry, diabetes, thrombolyt icor anticoagul ant therapy, stress, and generalize dhospitali zation. Anion Gap August 13, 2024 12:20am August 13, 2024 12:20am 13.5 Basophil s # (Auto) August 13, 2024 12:20am August 13, 2024 12:20am 0.1 10 3/uL 0.0-0.1 Troponin I High Sensitiv ity August 13, 2024 3:31am August 13, 2024 3:31am 228.4 pg/mL Above upper panic limits 4.0-76.1 RESULTS CALLED TO LAN JOLLY RN @BY Chelsey Lentz t 0400CUT-OF F POINTS HAVE BEEN ESTABLISHE D BASED ON THE FOURTHUNIV ERSAL DEFINITION OF MYOCARDIAL INFARCTION . THE UPPERREFER ENCE LIMIT (URL) OF TROPONIN, DEFINED THE 99THPERCEN TILE OF cTnI DISTRIBUTI ON IN A REFERENCE POPULATION ,HAS BEEN CONFIRMED THE DECISION THRESHOLD FOR MIDIAGNOSI S.99TH PERCENTILE = 76.2 PG/MLNOTE: HIGH-SENSI TIVITY TROPONIN ASSAY IS NOT INTENDED TO BEUSED IN ISOLATION BUT SHOULD BE INTERPRETE D IN CONJUNCTIO NWITH OTHER DIAGNOSTIC AND CLINICAL INFORMATIO N. Urine Bilirubi n August 27, 2024 7:24am August 27, 2024 7:24am NEGATIVE NEGATIVE Anion Gap September 21, 2024 9:31am September 21, 2024 9:31am 14.5 Activate d Partial Thrombop last Time September 21, 2024 9:31am September 21, 2024 9:31am 27.6 sec 22.3-36.2 Prothrom b Time Internat ional Ratio September 21, 2024 9:31am September 21, 2024 9:31am 1.06 DESIRED INR:2.0-3. 0 CONDITIONS NOT LISTED BELOW2.5-3 .5 FOR PROSTHETIC HEART VALVE REPLACEMEN T2.5-3.5 RECURRENT THROMBOSIS Basophil s # (Auto) September 21, 2024 9:31am September 21, 2024 9:31am 0.1 10 3/uL 0.0-0.1 Estimate d Average Glucose September 26, 2024 8:30am September 26, 2024 8:30am 166 mg/dL Urine Culture Reflexed October 11, 2024 8:09pm [facility] [place] Saturati on October 11, 2024 8:50pm October 11, 2024 8:50pm 12.1 % Lactic Acid Level October 11, 2024 8:50pm October 11, 2024 8:50pm 1.3 mmol/L 0.4-2.0 B-Type Natriure tic Peptide October 11, 2024 8:50pm October 11, 2024 8:50pm 2625.0 pg/mL Above upper panic limits <=900.0 RESULTS CALLED TO SONNY LUNA RN @BY Chelsey Velazquez [id number] Troponin I High Sensitiv ity October 11, 2024 8:50pm October 11, 2024 8:50pm 18.2 pg/mL 4.0-76.1 CUT-OFF POINTS HAVE BEEN ESTABLISHE D BASED ON THE FOURTHUNIV ERSAL DEFINITION OF MYOCARDIAL INFARCTION . THE UPPERREFER ENCE LIMIT (URL) OF TROPONIN, DEFINED THE 99THPERCEN TILE OF cTnI DISTRIBUTI ON IN A REFERENCE POPULATION ,HAS BEEN CONFIRMED THE DECISION THRESHOLD FOR MIDIAGNOSI S.99TH PERCENTILE = 76.2 PG/MLNOTE: HIGH-SENSI TIVITY TROPONIN ASSAY IS NOT INTENDED TO BEUSED IN ISOLATION BUT SHOULD BE INTERPRETE D IN CONJUNCTIO [facility] OTHER DIAGNOSTIC AND CLINICAL INFORMATIO N. Josieu m Level October 11, 2024 8:50pm October 11, 2024 8:50pm 2.2 mg/dL 1.8-2.4 Anion Gap October 11, 2024 8:50pm 16.4 Basophil s # (Auto) October 11, 2024 8:50pm October 11, 2024 8:50pm 0.0 10 3/uL 0.0-0.1 Anion Gap October 12, 2024 5:32am October 12, 2024 5:32am 18.5 Basophil s # (Auto) October 12, 2024 5:32am October 12, 2024 5:32am 0.0 10 3/uL 0.0-0.1 Urine Other Casts July 15, 2024 9:21am NONE SEEN #/LPF NONE SEEN Albumin/ Globulin Ratio July 15, 2024 9:45am July 15, 2024 9:45am 1.0 Basophil s (%) (Auto) July 15, 2024 9:45am July 15, 2024 9:45am 0.9 % 0.2-2.0 BUN/Crea tinine Ratio August 13, 2024 12:20am August 13, 2024 12:20am 14.4 Basophil s (%) (Auto) August 13, 2024 12:20am August 13, 2024 12:20am 0.8 % 0.2-2.0 Urine Occult Blood August 27, 2024 7:24am August 27, 2024 7:24am LARGE Abnormal (applies to non-numeric results) NEGATIVE Albumin/ Globulin Ratio September 21, 2024 9:31am September 21, 2024 9:31am 1.0 Prothrom bin Time September 21, 2024 9:31am September 21, 2024 9:31am 11.2 sec 9.0-11.6 Basophil s (%) (Auto) September 21, 2024 9:31am September 21, 2024 9:31am 0.6 % 0.2-2.0 Hemoglob in A1c September 26, 2024 8:30am September 26, 2024 8:30am 7.4 % Above high normal 4.5-6.2 ADA RECOMMENDE D LIMIT 4.0 - 6.0ADA THERAPEUTI C TARGET < 7.0ACTION SUGGESTED> 7.0 Urine Other Casts October 11, 2024 8:09pm NONE SEEN #/LPF NONE SEEN Iron Level October 11, 2024 8:50pm October 11, 2024 8:50pm 28.0 ug/dL Below low normal 65.0-175.0 Albumin/ Globulin Ratio October 11, 2024 8:50pm 0.7 Basophil s (%) (Auto) October 11, 2024 8:50pm October 11, 2024 8:50pm 0.1 % Below low normal 0.2-2.0 Albumin/ Globulin Ratio October 12, 2024 5:32am October 12, 2024 5:32am 0.7 Basophil s (%) (Auto) October 12, 2024 5:32am October 12, 2024 5:32am 0.2 % 0.2-2.0 Urine Other Crystals July 15, 2024 9:21am None Seen #/HPF None Seen Albumin July 15, 2024 9:45am July 15, 2024 9:45am 3.8 g/dL 3.4-5.0 Eosinoph ils # (Auto) July 15, 2024 9:45am July 15, 2024 9:45am 0.3 10 3/uL 0.0-0.7 Blood Urea Nitrogen August 13, 2024 12:20am August 13, 2024 12:20am 29.0 mg/dL Above high normal 7.0-18.0 Eosinoph ils # (Auto) August 13, 2024 12:20am August 13, 2024 12:20am 0.2 10 3/uL 0.0-0.7 Urine Appearan ce August 27, 2024 7:24am August 27, 2024 7:24am SL CLOUDY CLEAR Albumin September 21, 2024 9:31am September 21, 2024 9:31am 3.7 g/dL 3.4-5.0 Eosinoph ils # (Auto) September 21, 2024 9:31am September 21, 2024 9:31am 0.3 10 3/uL 0.0-0.7 Urine Other Crystals October 11, 2024 8:09pm Seen #/HPF Abnormal (applies to non-numeric results) None Seen Total Iron Binding Capacity October 11, 2024 8:50pm October 11, 2024 8:50pm 231.0 ug/dL Below low normal 250.0-450. 0 Albumin October 11, 2024 8:50pm 3.3 g/dL Below low normal 3.4-5.0 Eosinoph ils # (Auto) October 11, 2024 8:50pm October 11, 2024 8:50pm 0.0 10 3/uL 0.0-0.7 Albumin October 12, 2024 5:32am October 12, 2024 5:32am 2.8 g/dL Below low normal 3.4-5.0 Eosinoph ils # (Auto) October 12, 2024 5:32am October 12, 2024 5:32am 0.0 10 3/uL 0.0-0.7 Urine Bacteria July 15, 2024 9:21am TRACE #/HPF Abnormal (applies to non-numeric results) NONE SEEN Alkaline Phosphat ase July 15, 2024 9:45am July 15, 2024 9:45am 128 U/L Above high normal 46-116 Eosinoph ils (%) (Auto) July 15, 2024 9:45am July 15, 2024 9:45am 3.1 % 0.9-7.0 Calcium Level August 13, 2024 12:20am August 13, 2024 12:20am 9.3 mg/dL 8.5-10.1 Eosinoph ils (%) (Auto) August 13, 2024 12:20am August 13, 2024 12:20am 2.7 % 0.9-7.0 Urine Color August 27, 2024 7:24am August 27, 2024 7:24am YELLOW YELLOW Alkaline Phosphat ase September 21, 2024 9:31am September 21, 2024 9:31am 135 U/L Above high normal 46-116 Eosinoph ils (%) (Auto) September 21, 2024 9:31am September 21, 2024 9:31am 3.4 % 0.9-7.0 Urine Amorphou s Sediment October 11, 2024 8:09pm RARE Alkaline Phosphat ase October 11, 2024 8:50pm 108 U/L 46-116 Eosinoph ils (%) (Auto) October 11, 2024 8:50pm October 11, 2024 8:50pm 0.6 % Below low normal 0.9-7.0 Alkaline Phosphat ase October 12, 2024 5:32am October 12, 2024 5:32am 86 U/L 46-116 Eosinoph ils (%) (Auto) October 12, 2024 5:32am October 12, 2024 5:32am 0.2 % Below low normal 0.9-7.0 Urine Bilirubi n July 15, 2024 9:21am COLOR INTERFEREN CE Abnormal (applies to non-numeric results) NEGATIVE Alanine Aminotra nsferase (ALT/SGP T) July 15, 2024 9:45am July 15, 2024 9:45am 30 U/L 16-63 Hematocr it July 15, 2024 9:45am July 15, 2024 9:45am 42.8 % 42.0-54.0 Chloride Level August 13, 2024 12:20am August 13, 2024 12:20am 103 mmol/L 98-107 Hematocr it August 13, 2024 12:20am August 13, 2024 12:20am 38.9 % Below low normal 42.0-54.0 Urine Glucose (UA) August 27, 2024 7:24am August 27, 2024 7:24am >=1000 mg/dL Abnormal (applies to non-numeric results) NEGATIVE Alanine Aminotra nsferase (ALT/SGP T) September 21, 2024 9:31am September 21, 2024 9:31am 25 U/L -63 Hematocr it September 21, 2024 9:31am September 21, 2024 9:31am 41.0 % Below low normal 42.0-54.0 Urine Bacteria October 11, 2024 8:09pm MODERATE #/HPF Abnormal (applies to non-numeric results) NONE SEEN Alanine Aminotra nsferase (ALT/SGP T) October 11, 2024 8:50pm 26 U/L 16-63 Hematocr it October 11, 2024 8:50pm October 11, 2024 8:50pm 36.7 % Below low normal 42.0-54.0 Alanine Aminotra nsferase (ALT/SGP T) October 12, 2024 5:32am October 12, 2024 5:32am 21 U/L 16-63 Hematocr it October 12, 2024 5:32am October 12, 2024 5:32am 31.8 % Below low normal 42.0-54.0 Urine Occult Blood July 15, 2024 9:21am COLOR INTERFEREN CE Abnormal (applies to non-numeric results) NEGATIVE Aspartat e Amino Transf (AST/SGO T) July 15, 2024 9:45am July 15, 2024 9:45am 22 U/L 15-37 Hemoglob in July 15, 2024 9:45am July 15, 2024 9:45am 14.5 g/dL 14.0-18.0 Carbon Dioxide Level August 13, 2024 12:20am August 13, 2024 12:20am 24.4 mmol/L 21.0-32.0 Hemoglob in August 13, 2024 12:20am August 13, 2024 12:20am 13.2 g/dL Below low normal 14.0-18.0 Urine Ketones August 27, 2024 7:24am August 27, 2024 7:24am NEGATIVE mg/dL NEGATIVE Aspartat e Amino Transf (AST/SGO T) September 21, 2024 9:31am September 21, 2024 9:31am 19 U/L 15-37 Hemoglob in September 21, 2024 9:31am September 21, 2024 9:31am 13.5 g/dL Below low normal 14.0-18.0 Urine Bilirubi n October 11, 2024 8:09pm NEGATIVE NEGATIVE Aspartat e Amino Transf (AST/SGO T) October 11, 2024 8:50pm 27 U/L 15-37 Hemoglob in October 11, 2024 8:50pm October 11, 2024 8:50pm 12.4 g/dL Below low normal 14.0-18.0 Aspartat e Amino Transf (AST/SGO T) October 12, 2024 5:32am October 12, 2024 5:32am 22 U/L 15-37 Hemoglob in October 12, 2024 5:32am October 12, 2024 5:32am 10.8 g/dL Below low normal 14.0-18.0 Urine Appearan ce July 15, 2024 9:21am CLOUDY Abnormal (applies to non-numeric results) CLEAR BUN/Crea tinine Ratio July 15, 2024 9:45am July 15, 2024 9:45am 10.9 Immature Granuloc yte # (Auto) July 15, 2024 9:45am July 15, 2024 9:45am 0.05 10 3/uL Above high normal 0.00-0.03 Creatini ne August 13, 2024 12:20am August 13, 2024 12:20am 2.02 mg/dL Above high normal 0.70-1.30 Immature Granuloc yte # (Auto) August 13, 2024 12:20am August 13, 2024 12:20am 0.04 10 3/uL Above high normal 0.00-0.03 Urine Leukocyt e Esterase August 27, 2024 7:24am August 27, 2024 7:24am MODERATE Abnormal (applies to non-numeric results) NEGATIVE BUN/Crea tinine Ratio September 21, 2024 9:31am September 21, 2024 9:31am 15.4 Immature Granuloc yte # (Auto) September 21, 2024 9:31am September 21, 2024 9:31am 0.03 10 3/uL 0.00-0.03 Urine Occult Blood October 11, 2024 8:09pm LARGE Abnormal (applies to non-numeric results) NEGATIVE BUN/Crea tinine Ratio October 11, 2024 8:50pm 14.9 Immature Granuloc yte # (Auto) October 11, 2024 8:50pm October 11, 2024 8:50pm 0.05 10 3/uL Above high normal 0.00-0.03 BUN/Crea tinine Ratio October 12, 2024 5:32am October 12, 2024 5:32am 16.5 Immature Granuloc yte # (Auto) October 12, 2024 5:32am October 12, 2024 5:32am 0.04 10 3/uL Above high normal 0.00-0.03 Urine Color July 15, 2024 9:21am DK. RED YELLOW Blood Urea Nitrogen July 15, 2024 9:45am July 15, 2024 9:45am 19.0 mg/dL Above high normal 7.0-18.0 Immature Granuloc yte % (Auto) July 15, 2024 9:45am July 15, 2024 9:45am 0.6 % Above high normal 0.0-0.5 Estimate d GFR ( ) August 13, 2024 12:20am August 13, 2024 12:20am 40 Below low normal >=60 mL/min/1.7 3m 2 Immature Granuloc yte % (Auto) August 13, 2024 12:20am August 13, 2024 12:20am 0.5 % 0.0-0.5 Urine Nitrite August 27, 2024 7:24am August 27, 2024 7:24am NEGATIVE NEGATIVE Blood Urea Nitrogen September 21, 2024 9:31am September 21, 2024 9:31am 30.0 mg/dL Above high normal 7.0-18.0 Immature Granuloc yte % (Auto) September 21, 2024 9:31am September 21, 2024 9:31am 0.4 % 0.0-0.5 Urine Appearan ce October 11, 2024 8:09pm CLEAR CLEAR Blood Urea Nitrogen October 11, 2024 8:50pm 48.0 mg/dL Above high normal 7.0-18.0 Immature Granuloc yte % (Auto) October 11, 2024 8:50pm October 11, 2024 8:50pm 0.7 % Above high normal 0.0-0.5 Blood Urea Nitrogen October 12, 2024 5:32am October 12, 2024 5:32am 45.0 mg/dL Above high normal 7.0-18.0 Immature Granuloc yte % (Auto) October 12, 2024 5:32am October 12, 2024 5:32am 0.7 % Above high normal 0.0-0.5 Urine Glucose (UA) July 15, 2024 9:21am COLOR INTERFEREN CE mg/dL Abnormal (applies to non-numeric results) NEGATIVE Calcium Level July 15, 2024 9:45am July 15, 2024 9:45am 8.9 mg/dL 8.5-10.1 Lymphocy bri # (Auto) July 15, 2024 9:45am July 15, 2024 9:45am 1.7 10 3/uL 1.2-3.8 Estimate d GFR (Non-Afr ican [place] August 13, 2024 12:20am August 13, 2024 12:20am 33 Below low normal >=60 mL/min/1.7 3m 2 Lymphocy bri # (Auto) August 13, 2024 12:20am August 13, 2024 12:20am 2.0 10 3/uL 1.2-3.8 Urine pH August 27, 2024 7:24am August 27, 2024 7:24am 6.0 5.0-9.0 Calcium Level September 21, 2024 9:31am September 21, 2024 9:31am 8.9 mg/dL 8.5-10.1 Lymphocy bri # (Auto) September 21, 2024 9:31am September 21, 2024 9:31am 1.7 10 3/uL 1.2-3.8 Urine Color October 11, 2024 8:09pm YELLOW YELLOW Calcium Level October 11, 2024 8:50pm 9.4 mg/dL 8.5-10.1 Lymphocy bri # (Auto) October 11, 2024 8:50pm October 11, 2024 8:50pm 1.0 10 3/uL Below low normal 1.2-3.8 Calcium Level October 12, 2024 5:32am October 12, 2024 5:32am 8.9 mg/dL 8.5-10.1 Lymphocy bri # (Auto) October 12, 2024 5:32am October 12, 2024 5:32am 0.8 10 3/uL Below low normal 1.2-3.8 Urine Ketones July 15, 2024 9:21am COLOR INTERFEREN CE mg/dL Abnormal (applies to non-numeric results) NEGATIVE Chloride Level July 15, 2024 9:45am July 15, 2024 9:45am 104 mmol/L 98-107 Lymphocy bri (%) (Auto) July 15, 2024 9:45am July 15, 2024 9:45am 21.1 % 20.5-60.0 Glucose Level August 13, 2024 12:20am August 13, 2024 12:20am 310 mg/dL Above high normal 74-106 Lymphocy bri (%) (Auto) August 13, 2024 12:20am August 13, 2024 12:20am 22.6 % 20.5-60.0 Urine Protein August 27, 2024 7:24am August 27, 2024 7:24am >=300 mg/dL Abnormal (applies to non-numeric results) NEG/TRACE Chloride Level September 21, 2024 9:31am September 21, 2024 9:31am 104 mmol/L 98-107 Lymphocy bri (%) (Auto) September 21, 2024 9:31am September 21, 2024 9:31am 20.1 % Below low normal 20.5-60.0 Urine Glucose (UA) October 11, 2024 8:09pm >=1000 mg/dL Abnormal (applies to non-numeric results) NEGATIVE Chloride Level October 11, 2024 8:50pm 102 mmol/L 98-107 Lymphocy bri (%) (Auto) October 11, 2024 8:50pm October 11, 2024 8:50pm 14.0 % Below low normal 20.5-60.0 Chloride Level October 12, 2024 5:32am October 12, 2024 5:32am 107 mmol/L 98-107 Lymphocy bri (%) (Auto) October 12, 2024 5:32am October 12, 2024 5:32am 15.1 % Below low normal 20.5-60.0 Urine Leukocyt e Esterase July 15, 2024 9:21am COLOR INTERFEREN CE Abnormal (applies to non-numeric results) NEGATIVE Carbon Dioxide Level July 15, 2024 9:45am July 15, 2024 9:45am 28.1 mmol/L 21.0-32.0 Mean Corpuscu lar Hemoglob in July 15, 2024 9:45am July 15, 2024 9:45am 30.7 pg 25.9-34.0 Potassiu m Level August 13, 2024 12:20am August 13, 2024 12:20am 3.9 mmol/L 3.5-5.1 Mean Corpuscu lar Hemoglob in August 13, 2024 12:20am August 13, 2024 12:20am 30.7 pg 25.9-34.0 Urine Specific Ferron August 27, 2024 7:24am August 27, 2024 7:24am 1.025 1.005-1.02 5 Carbon Dioxide Level September 21, 2024 9:31am September 21, 2024 9:31am 26.0 mmol/L 21.0-32.0 Mean Corpuscu lar Hemoglob in September 21, 2024 9:31am September 21, 2024 9:31am 29.7 pg 25.9-34.0 Urine Ketones October 11, 2024 8:09pm TRACE mg/dL Abnormal (applies to non-numeric results) NEGATIVE Carbon Dioxide Level October 11, 2024 8:50pm 22.8 mmol/L 21.0-32.0 Mean Corpuscu lar Hemoglob in October 11, 2024 8:50pm October 11, 2024 8:50pm 30.0 pg 25.9-34.0 Carbon Dioxide Level October 12, 2024 5:32am October 12, 2024 5:32am 17.8 mmol/L Below low normal 21.0-32.0 Mean Corpuscu lar Hemoglob in October 12, 2024 5:32am October 12, 2024 5:32am 30.1 pg 25.9-34.0 Urine Mucus July 15, 2024 9:21am NONE SEEN NONE SEEN Creatini ne July 15, 2024 9:45am July 15, 2024 9:45am 1.74 mg/dL Above high normal 0.70-1.30 Mean Corpuscu lar Hemoglob in [facility] July 15, 2024 9:45am July 15, 2024 9:45am 33.9 g/dL 29.9-35.2 Sodium Level August 13, 2024 12:20am August 13, 2024 12:20am 137 mmol/L 136-145 Mean Corpuscu lar Hemoglob in [facility] August 13, 2024 12:20am August 13, 2024 12:20am 33.9 g/dL 29.9-35.2 Urine Urobilin ogen August 27, 2024 7:24am August 27, 2024 7:24am 1.0 EU/dL 0.2-1.0 Creatini ne September 21, 2024 9:31am September 21, 2024 9:31am 1.95 mg/dL Above high normal 0.70-1.30 Mean Corpuscu lar Hemoglob in [facility] September 21, 2024 9:31am September 21, 2024 9:31am 32.9 g/dL 29.9-35.2 Urine Leukocyt e Esterase October 11, 2024 8:09pm SMALL Abnormal (applies to non-numeric results) NEGATIVE Creatini ne October 11, 2024 8:50pm 3.23 mg/dL Above high normal 0.70-1.30 Mean Corpuscu lar Hemoglob in [facility] October 11, 2024 8:50pm October 11, 2024 8:50pm 33.8 g/dL 29.9-35.2 Creatini ne October 12, 2024 5:32am October 12, 2024 5:32am 2.73 mg/dL Above high normal 0.70-1.30 Mean Corpuscu lar Hemoglob in [facility] October 12, 2024 5:32am October 12, 2024 5:32am 34.0 g/dL 29.9-35.2 Urine Nitrite July 15, 2024 9:21am COLOR INTERFEREN CE Abnormal (applies to non-numeric results) NEGATIVE Estimate d GFR ( ) July 15, 2024 9:45am July 15, 2024 9:45am 47 Below low normal >=60 mL/min/1.7 3m 2 Mean Corpuscu lar Volume July 15, 2024 9:45am July 15, 2024 9:45am 90.5 fL 80.0-94.0 Mean Corpuscu lar Volume August 13, 2024 12:20am August 13, 2024 12:20am 90.5 fL 80.0-94.0 Estimate d GFR ( ) September 21, 2024 9:31am September 21, 2024 9:31am 41 Below low normal >=60 mL/min/1.7 3m 2 Mean Corpuscu lar Volume September 21, 2024 9:31am September 21, 2024 9:31am 90.1 fL 80.0-94.0 Urine Mucus October 11, 2024 8:09pm NONE SEEN NONE SEEN Estimate d GFR ( ) October 11, 2024 8:50pm 23 Below low normal >=60 mL/min/1.7 3m 2 Mean Corpuscu lar Volume October 11, 2024 8:50pm October 11, 2024 8:50pm 88.6 fL 80.0-94.0 Estimate d GFR ( ) October 12, 2024 5:32am October 12, 2024 5:32am 28 Below low normal >=60 mL/min/1.7 3m 2 Mean Corpuscu lar Volume October 12, 2024 5:32am October 12, 2024 5:32am 88.6 fL 80.0-94.0 Urine pH July 15, 2024 9:21am COLOR INTERFEREN CE Abnormal (applies to non-numeric results) 5.0-9.0 Estimate d GFR (Non-Afr ican [place] July 15, 2024 9:45am July 15, 2024 9:45am 39 Below low normal >=60 mL/min/1.7 3m 2 Monocyte s # (Auto) July 15, 2024 9:45am July 15, 2024 9:45am 0.8 10 3/uL 0.3-0.8 Monocyte s # (Auto) August 13, 2024 12:20am August 13, 2024 12:20am 1.0 10 3/uL Above high normal 0.3-0.8 Estimate d GFR (Non-Afr ican [place] September 21, 2024 9:31am September 21, 2024 9:31am 34 Below low normal >=60 mL/min/1.7 3m 2 Monocyte s # (Auto) September 21, 2024 9:31am September 21, 2024 9:31am 0.7 10 3/uL 0.3-0.8 Urine Nitrite October 11, 2024 8:09pm NEGATIVE NEGATIVE Estimate d GFR (Non-Afr ican [place] October 11, 2024 8:50pm 19 Below low normal >=60 mL/min/1.7 3m 2 Monocyte s # (Auto) October 11, 2024 8:50pm October 11, 2024 8:50pm 0.8 10 3/uL 0.3-0.8 Estimate d GFR (Non-Afr ican [place] October 12, 2024 5:32am October 12, 2024 5:32am 23 Below low normal >=60 mL/min/1.7 3m 2 Monocyte s # (Auto) October 12, 2024 5:32am October 12, 2024 5:32am 0.7 10 3/uL 0.3-0.8 Urine Protein July 15, 2024 9:21am COLOR INTERFEREN CE mg/dL Abnormal (applies to non-numeric results) NEG/TRACE Globulin July 15, 2024 9:45am July 15, 2024 9:45am 3.7 g/dL Monocyte s (%) (Auto) July 15, 2024 9:45am July 15, 2024 9:45am 9.5 % 1.7-12.0 Monocyte s (%) (Auto) August 13, 2024 12:20am August 13, 2024 12:20am 11.0 % 1.7-12.0 Globulin September 21, 2024 9:31am September 21, 2024 9:31am 3.7 g/dL Monocyte s (%) (Auto) September 21, 2024 9:31am September 21, 2024 9:31am 7.8 % 1.7-12.0 Urine pH October 11, 2024 8:09pm 6.0 5.0-9.0 Globulin October 11, 2024 8:50pm 4.9 g/dL Monocyte s (%) (Auto) October 11, 2024 8:50pm October 11, 2024 8:50pm 11.0 % 1.7-12.0 Globulin October 12, 2024 5:32am October 12, 2024 5:32am 4.1 g/dL Monocyte s (%) (Auto) October 12, 2024 5:32am October 12, 2024 5:32am 12.7 % Above high normal 1.7-12.0 Urine RBC July 15, 2024 9:21am 75-100 #/HPF Abnormal (applies to non-numeric results) 0-2 Glucose Level July 15, 2024 9:45am July 15, 2024 9:45am 142 mg/dL Above high normal 74-106 Mean Platelet Volume July 15, 2024 9:45am July 15, 2024 9:45am 9.6 fL 9.5-13.5 Mean Platelet Volume August 13, 2024 12:20am August 13, 2024 12:20am 9.8 fL 9.5-13.5 Glucose Level September 21, 2024 9:31am September 21, 2024 9:31am 348 mg/dL Above high normal 74-106 Mean Platelet Volume September 21, 2024 9:31am September 21, 2024 9:31am 9.3 fL Below low normal 9.5-13.5 Urine Protein October 11, 2024 8:09pm >=300 mg/dL Abnormal (applies to non-numeric results) NEG/TRACE Glucose Level October 11, 2024 8:50pm 139 mg/dL Above high normal 74-106 Mean Platelet Volume October 11, 2024 8:50pm October 11, 2024 8:50pm 9.3 fL Below low normal 9.5-13.5 Glucose Level October 12, 2024 5:32am October 12, 2024 5:32am 159 mg/dL Above high normal 74-106 Mean Platelet Volume October 12, 2024 5:32am October 12, 2024 5:32am 9.5 fL 9.5-13.5 Urine Specific Ferron July 15, 2024 9:21am 1.020 1.005-1.02 5 Potassiu m Level July 15, 2024 9:45am July 15, 2024 9:45am 4.1 mmol/L 3.5-5.1 Neutroph ils # (Auto) July 15, 2024 9:45am July 15, 2024 9:45am 5.3 10 3/uL 1.4-6.5 Neutroph ils # (Auto) August 13, 2024 12:20am August 13, 2024 12:20am 5.4 10 3/uL 1.4-6.5 Potassiu m Level September 21, 2024 9:31am September 21, 2024 9:31am 4.5 mmol/L 3.5-5.1 Neutroph ils # (Auto) September 21, 2024 9:31am September 21, 2024 9:31am 5.7 10 3/uL 1.4-6.5 Urine RBC October 11, 2024 8:09pm NONE SEEN #/HPF 0-2 [place]ass[place] m Level October 11, 2024 8:50pm 4.2 mmol/L 3.5-5.1 Neutroph ils # (Auto) October 11, 2024 8:50pm October 11, 2024 8:50pm 5.1 10 3/uL 1.4-6.5 Potass[place] m Level October 12, 2024 5:32am October 12, 2024 5:32am 4.3 mmol/L 3.5-5.1 Neutroph ils # (Auto) October 12, 2024 5:32am October 12, 2024 5:32am 3.8 10 3/uL 1.4-6.5 Urine Squamous Epitheli al Cells July 15, 2024 9:21am RARE #/LPF NONE/RARE Sodium Level July 15, 2024 9:45am July 15, 2024 9:45am 140 mmol/L 136-145 Neutroph ils (%) (Auto) July 15, 2024 9:45am July 15, 2024 9:45am 64.8 % 43.0-75.0 Neutroph ils (%) (Auto) August 13, 2024 12:20am August 13, 2024 12:20am 62.4 % 43.0-75.0 Sodium Level September 21, 2024 9:31am September 21, 2024 9:31am 140 mmol/L 136-145 Neutroph ils (%) (Auto) September 21, 2024 9:31am September 21, 2024 9:31am 67.7 % 43.0-75.0 Urine Specific Ferron October 11, 2024 8:09pm 1.025 1.005-1.02 5 Sodium Level October 11, 2024 8:50pm 137 mmol/L 136-145 Neutroph ils (%) (Auto) October 11, 2024 8:50pm October 11, 2024 8:50pm 73.6 % 43.0-75.0 Sodium Level October 12, 2024 5:32am October 12, 2024 5:32am 139 mmol/L 136-145 Neutroph ils (%) (Auto) October 12, 2024 5:32am October 12, 2024 5:32am 71.1 % 43.0-75.0 Urine Urobilin ogen July 15, 2024 9:21am COLOR INTERFEREN CE EU/dL Abnormal (applies to non-numeric results) 0.2-1.0 Total Bilirubi n July 15, 2024 9:45am July 15, 2024 9:45am 0.6 mg/dL 0.2-1.0 Platelet Count July 15, 2024 9:45am July 15, 2024 9:45am 203 10 3/uL 150-450 Platelet Count August 13, 2024 12:20am August 13, 2024 12:20am 217 10 3/uL 150-450 Total Bilirubi n September 21, 2024 9:31am September 21, 2024 9:31am 0.6 mg/dL 0.2-1.0 Platelet Count September 21, 2024 9:31am September 21, 2024 9:31am 205 10 3/uL 150-450 Urine Squamous Epitheli al Cells October 11, 2024 8:09pm FEW #/LPF Abnormal (applies to non-numeric results) NONE/RARE Total Bilirubi n October 11, 2024 8:50pm 0.8 mg/dL 0.2-1.0 Platelet Count October 11, 2024 8:50pm October 11, 2024 8:50pm 253 10 3/uL 150-450 Total Bilirubi n October 12, 2024 5:32am October 12, 2024 5:32am 0.6 mg/dL 0.2-1.0 Platelet Count October 12, 2024 5:32am October 12, 2024 5:32am 242 10 3/uL 150-450 Urine WBC July 15, 2024 9:21am NONE SEEN #/HPF NONE SEEN Total Protein July 15, 2024 9:45am July 15, 2024 9:45am 7.5 g/dL 6.4-8.2 Red Blood Count July 15, 2024 9:45am July 15, 2024 9:45am 4.73 10 6/uL 4.70-6.10 Red Blood Count August 13, 2024 12:20am August 13, 2024 12:20am 4.30 10 6/uL Below low normal 4.70-6.10 Total Protein September 21, 2024 9:31am September 21, 2024 9:31am 7.4 g/dL 6.4-8.2 Red Blood Count September 21, 2024 9:31am September 21, 2024 9:31am 4.55 10 6/uL Below low normal 4.70-6.10 Urine Urobilin ogen October 11, 2024 8:09pm 1.0 EU/dL 0.2-1.0 Total Protein October 11, 2024 8:50pm 8.2 g/dL 6.4-8.2 Red Blood Count October 11, 2024 8:50pm October 11, 2024 8:50pm 4.14 10 6/uL Below low normal 4.70-6.10 Total Protein October 12, 2024 5:32am October 12, 2024 5:32am 6.9 g/dL 6.4-8.2 Red Blood Count October 12, 2024 5:32am October 12, 2024 5:32am 3.59 10 6/uL Below low normal 4.70-6.10 Red Cell Distribu tion Width July 15, 2024 9:45am July 15, 2024 9:45am 15.0 % 11.0-15.0 Red Cell Distribu tion Width August 13, 2024 12:20am August 13, 2024 12:20am 14.7 % 11.0-15.0 Red Cell Distribu tion Width September 21, 2024 9:31am September 21, 2024 9:31am 14.0 % 11.0-15.0 Urine WBC October 11, 2024 8:09pm 75-100 #/HPF Abnormal (applies to non-numeric results) NONE SEEN Red Cell Distribu tion Width October 11, 2024 8:50pm October 11, 2024 8:50pm 14.6 % 11.0-15.0 Red Cell Distribu tion Width October 12, 2024 5:32am October 12, 2024 5:32am 14.6 % 11.0-15.0 Correcte d White Blood Count July 15, 2024 9:45am July 15, 2024 9:45am 8.1 10 3/uL 4.0-11.0 Correcte d White Blood Count August 13, 2024 12:20am August 13, 2024 12:20am 8.6 10 3/uL 4.0-11.0 Correcte d White Blood Count September 21, 2024 9:31am September 21, 2024 9:31am 8.5 10 3/uL 4.0-11.0 Correcte d White Blood Count October 11, 2024 8:50pm October 11, 2024 8:50pm 6.9 10 3/uL 4.0-11.0 Correcte d White Blood Count October 12, 2024 5:32am October 12, 2024 5:32am 5.4 10 3/uL 4.0-11.0 Microbiology Results Procedure Source Result Collection Date/Time Result Date/Time Result Comment Performing Site Urine Culture Urine, Clean-Voided Midstream 2 Days September 21, 2024 9:25am September 23, 2024 12:20pm [facility] [id number] [address] [place] [address] Vital Signs Vital Reading Result Reference Range Collection Date/Time Height 67 [in_i] July 27 11:23am Weight 83.57 kg July 27 11:23am Heart Rate 74 /min 60-100 July 27 11:29am Respiratory rate 12 /min -July 27, 2024 11:23am Oxygen saturation by Pulse oximetry 100 % 95-100 July 27, 2024 11: 23am BP Systolic 143 mm[Hg] 100-140 July 27 11:29am BP Diastolic 80 mm[Hg] 60-100 July 27 11:29am BMI (Body Mass Index) 28.8 kg/m2 July 27, 2024 11:23am Height 67 [in_i] August 03, 2024 9 :28am Weight 92.40 kg August 03, 2024 9 :28am Heart Rate 77 /min 60-100 August 03, 2024 9 :28am Respiratory rate 18 /min -August 03 9:28am Oxygen saturation by Pulse oximetry 99 % 95-100 August 03, 2024 9:28am BP Systolic 143 mm[Hg] 100-140 August 03, 2024 9 :28am BP Diastolic 83 mm[Hg] 60-100 August 03, 2024 9 :28am BMI (Body Mass Index) 31.8 kg/m2 July 9:28am Height 67 [in_i] August 25, 2024 11:33am Weight 77.79 kg August 25, 2024 11:33am Heart Rate 77 /min 60-100 August 25, 2024 11:33am Respiratory rate 12 /min 12-August 25, 2 025 11:33am Oxygen saturation by Pulse oximetry 97 % 95-100 August 25, 2024 11:33 am BP Systolic 126 mm[Hg] 100-140 August 25, 2024 11:33am BP Diastolic 73 mm[Hg] 60-100 August 25, 2024 11:33am BMI (Body Mass Index) 26.9 kg/m2 August 252024 11:33am Advance Directives Advance Directive Response Recorded Date/ Time Advance Directives No September 19 8:18am Insurance Providers Guarantor Prem Ayoub Address [address] [place] [phone] Contact Info. Home Phone: Payer Policy Id Subscriber's Name Subscriber Id Opal ctive Date Expiration Date MMO [id number] Prem Ayoub [id number] Medicare [id number] Prem Ayoub [id number] Regular Insurance [id number] Prem Ayoub [id number] 2024 Encounters Encounter Location(s) Arrival/Admit Date Discharge/Depart Date Provider(s) Non-patient / Non-visit -[facility] July 15, 2024 9:21am Senai Lane Do Non-patient / Non-visit -[facility] July 16, 2024 9:08am Codi Easley CMA Departed Physician/Prov ider Office Visit -[facility] July 27, 2024 11:19am July 27, 2024 12:19pm Harley Goodman DO Departed Physician/Prov ider Office Visit -[facility] August 03, 2024 9:17am August 03, 2024 10:17am Viky Kwong , COMPUTER ENGINEERING TECHNICIAN-C Non-patient / Non-visit -[facility] August 13, 2024 12:20am Franco Youngblood MD Non-patient / Non-visit -[facility] August 21, 2024 1:11pm Codi Easley CMA Departed Physician/Prov ider Office Visit -[facility] August 25, 2024 11:31am August 25, 2024 12:55pm Harley Goodman , Non-patient / Non-visit -[facility] August 27, 2024 7:24am Harley Goodman DO Departed Referred -[facility] September 21, 2024 9:25am September 21, 2024 9:26am NON STAFF Non-patient / Non-visit -[facility] September 21, 2024 9:31am Jackson Mcmanus MD Non-patient / Non-visit -[facility] September 26, 2024 8:30am Outside Provider Non-patient / Non-visit -[facility] October 11, 2024 8:09pm Lyssa Alcantar DO Non-patient / Non-visit -[facility] October 12, 2024 5:32am Meghan Elizalde MD Recent Diagnosis Onset Date Admit Date Chronic HFrEF (heart failure with reduced ejection fraction) Unknown July 27, 2024 11:19am Chronic kidney disease Unknown June 11:19am Gross hematuria Unknown July 27, 2024 11:19am HTN (hypertension) Unknown July 27, 2 025 11:19am Hypercholesterolemia Unknown July 27, 2024 11:19am Ischemic cardiomyopathy Unknown July 272024 11:19am Pulmonary nodule Unknown July 27 11:19am Type 2 diabetes 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 Unknown July 27, 2024 11:19am Dietary counseling and surveillance Unknown August 03, 2024 9:17am HTN (hypertension) Unknown August 03, 2024 9:17am BMI 31.0-31.9,adult Unknown August 03 9:17am DM2 (diabetes mellitus, type 2) Unknown August 03, 2024 9:17am HLD (hyperlipidemia) Unknown August 03 9:17am Scab Unknown August 03, 2024 9: 17am Chronic HFrEF (heart failure with reduced ejection fraction) Unknown August 25, 2024 11:31am Chronic kidney disease Unknown August 25, 2024 11:31am HTN (hypertension) Unknown August 25 11:31am Hypercholesterolemia Unknown August 25, 2 025 11:31am Ischemic cardiomyopathy Unknown July 11:31am Polyuria Unknown August 25, 2024 1 1:31am Pulmonary nodule Unknown August 25, 2024 11:31am Type 2 diabetes mellitus wit h diabetic peripheral angiopathy without gangrene Unknown August 25, 2024 11:31am Type 2 diabetes mellitus with hyperglycemia Unkn own August 25, 2024 11:31am Type 2 diabetes mellitus wit h severe nonproliferative diabetic retinopathy Unknown August 25, 2024 1 1:31am Assessments Diagnosis Onset Date Resolution Status Admit Date [...] diabetic retinopathy acute August 25, 2024 11:31am Plan of Treatment Author Harley Goodman [facility] Authored July 27, 2024 9:3 1pm This patient is stable witho ut activity related chest pain, dyspnea or lightheadedness. I instructed them to continue exercise at least 3x weekly and consume a low salt, low fat, high fiber diet. I instructed them to continue secondary prevention measures in reducing risks for recurrent events. - He was transferred to [facility] in 01/2023, 08/2023, 01/2024 for NSTEMI - s/p C w/o intervention - s/p PCI/stent in SVG of PDA - 08/2023 - s/p [facility] w/o intervention - 01/2024 Continue Ranexa, ASA, Plavix and Rosuvastatin without interruption I have instructed this patient on a low salt diet, exercise and daily weights. I have instructed them to notify the office for any on any unexpected weight gain > 3lbs and /or increased dyspnea on exertion, difficulty breathing during sleep, worsening lower extremity swelling, chest pain or lightheadedness. I have reviewed the GDMT with beta blockers, TRISTON/ARB or ARNI, MRA and a SGLT-2i. Continue Aldactone, Metoprolol, Jardiance without interruption I instructed this patient on the benefits of adequate control of hypertension and diabetes, if appropriate. I have also instructed them to avoid use of NSAIDs due to the adverse effects on renal function. I instructed them on adequate fluid balance and to consume at least 48 oz of fluids daily. I also instructed them to monitor for an unexplained increase in weight and lower extremity edema. They have been instructed to notify the office for any changes or concerns. f/u Nephrology I have instructed this patient to consume a healthy, low-fat, low-salt diet. I have also encouraged them to continue exercise with weight loss to achieve/maintain a BMI < 30. I have instructed this patient on the correct procedure for obtaining home BP measurements: - rest for 5 minutes w/o talking. - positioned w/ feet on floor and arms supported. - average best 2/3 readings w/ goal < 135/85. - update office w/ home readings in 2 weeks. Continue Metoprolol without interruption I have instructed this patient on a low fat, high fiber diet and exercise. I have discussed the primary and secondary prevention benefits attributed to lowering LDL cholesterol. I have also discussed the medical treatment of elevated cholesterol, which is based on the 10 year ASCVD risk. Continue Rosuvastatin without interruption Stable over past year, Recommend repeat in year. CT: 8mm RML nodule - 05/2022 CT: 6mm RML nodule - 07/2022 CT: 7mm RML nodule - 12/2022 CT: 6.5mm RML nodule - 07/2023 Painless, gross hematuria in a patient w/ DAPT for known complex, multivessel CAD. UA showing RBC w/o pyuria or casts. Recommend noncontrast CT abdomen (due to CKD) to r/o renal mass, ureteral stones or bladder tumor. Refer to Urology for cystoscopy. I have instructed this patient to follow a comprehensive diabetic treatment plan. I have also instructed them to check their feet daily for calluses and nonhealing ulcers. I have instructed them to have a yearly dilated eye examination. I have reviewed their treatment goals: SBP less than 130, LDL less than 100, FBS less than 140, A1C less than 7%. I have instructed them to maintain a home BS log and bring the results to each of their office visits for review. I have explained the importance of routine monitoring of their A1C, Microalbumin and Lipids. I have explained the benefits of well controlled diabetes in preventing micro and macrovascular complications. f/u Nephrology Author Harley Goodman [facility] Authored August 25, 2024 8:56p m This patient is stable witho ut activity related chest pain, dyspnea or lightheadedness. I instructed them to continue exercise at least 3x weekly and consume a low salt, low fat, high fiber diet. I instructed them to continue secondary prevention measures in reducing risks for recurrent events. CABG x 5 - 1995, PCI/stent x 8, Patent SVG x3 and MENJIVAR to LAD, no intervention - 01/2024, PCI/stent SVG to PDA - 09/2023 Continue ASA, Plavix, Amlodipine, Metoprolol and Imdur without interruption I have instructed this patient on a low salt diet, exercise and daily weights. I have instructed them to notify the office for any on any unexpected weight gain > 3lbs and /or increased dyspnea on exertion, difficulty breathing during sleep, worsening lower extremity swelling, chest pain or lightheadedness. I have reviewed the GDMT with beta blockers, TRISTON/ARB or ARNI, MRA and a SGLT-2i. Echo: LVEF 25%, LVH, normal RV size/function - 01/2024 Continue Imdur, Metoprolol, Aldactone and Lisinopril without interruption I have instructed this patient to follow a comprehensive diabetic treatment plan. I have also instructed them to check their feet daily for calluses and nonhealing ulcers. I have instructed them to have a yearly dilated eye examination. I have reviewed their treatment goals: SBP less than 130, LDL less than 100, FBS less than 140, A1C less than 7%. I have instructed them to maintain a home BS log and bring the results to each of their office visits for review. I have explained the importance of routine monitoring of their A1C, Microalbumin and Lipids. I have explained the benefits of well controlled diabetes in preventing micro and macrovascular complications. Continue Jardiance, Tresiba and Victoza without interruption I have instructed the patient to inspect their feet daily for cuts and calluses. I have recommended shoes and inserts to prevent callus formation. I have reviewed fall precautions. Instructed to continue secondary prevention measures Instructed to walk daily I have instructed this patient to consume a healthy, low-fat, low-salt diet. I have also encouraged them to continue exercise with weight loss to achieve/maintain a BMI < 30. I have instructed this patient on the correct procedure for obtaining home BP measurements: - rest for 5 minutes w/o talking. - positioned w/ feet on floor and arms supported. - average best 2/3 readings w/ goal < 135/85. - update office w/ home readings in 2 weeks. Continue Amlodipine, Lisinopril and Metoprolol without interruption I instructed this patient on the benefits of adequate control of hypertension and diabetes, if appropriate. I have also instructed them to avoid use of NSAIDs due to the adverse effects on renal function. I instructed them on adequate fluid balance and to consume at least 48 oz of fluids daily. I also instructed them to monitor for an unexplained increase in weight and lower extremity edema. They have been instructed to notify the office for any changes or concerns. Secondary to diabetic nephropathy and HTN nephroclerosis He denies CP, SOB, cough or hemoptysis. He denies change in appetite or weight. He denies fever, chills or night sweats CT: 8mm RML nodule - 05/2022 CT: 6mm RML nodule - 07/2022 CT: 7mm RML nodule - 12/2022 CT: 6.5mm RML nodule - 07/2023 I have instructed this patient on a low fat, high fiber diet and exercise. I have discussed the primary and secondary prevention benefits attributed to lowering LDL cholesterol. I have also discussed the medical treatment of elevated cholesterol, which is based on the 10 year ASCVD risk. Continue Rosuvastatin without interruption Control BS and regular f/u with Pathology Secretary/Transcriptionist Check UA and C/S Author Viky [facility] Authored August 03, 2024 10:24a m Type 2 diabetes mellitus Clinical Notes: 1. Controlled, a Type 2 diabetes with A1c of 6.5% 2. Blood glucose levels above target. According to eshtery 2 cgm download 07/21- 08/03/24: AVG SG 192. >250-15%, >180-41%, 70-180-44%, <70-2%, <54-0%. CV 26.2%. GMI 7.9%. Reviewed download w/ pt, no incidence of hypoglycemia. Glucose above target postprandial. Pt denied adverse s/e to daily glp1, recommend once daily glp1 with proven cardiorenal risk reduction proven benefit in this high-risk pt with type 2 dm. Pt is agreeable to restarting. Recommend changes to meal dosing- see below. Continue: Tresiba 14 units sq qam. modify Novolog 6---12 to 8-10-15-18 units ac according to meal size tid and 4 units ac snack plus corrective scale 1:20 ac tid (hs if >200 half dose). Reviewed with pt how to titrate basal/bolus insulin according to fasting am/meal to meal glucose pattern. Pt verbalizes understanding. jardiance 10mg 1 tab qd * Victoza- see above will send 30 day supply *[facility] and if tolerated pt to contact office will send order to [facility] for victoza 1.8mg Arnaud 2 cgm pt adherent and benefitting use 3. Patient is alert, oriented and receptive to making changes or counseling Notes: Seen for an assessment of current glucose pattern, changes in treatment plan, time was spent counseling and coordination of care related to diabetes, risks, and benefits of treatment, medications, and side effects. TOPICS REVIEWED: 1. Time was spent reviewing: a. Basic concepts of diabetes, progressive beta cell , concepts of basal/bolus/corrective insulin requirements. Basal: The goal is fasting blood glucose of 100-130/150 mg. If fasting blood glucose starts to run under [...] 100-150mg range b. Nutrition: Concepts of healthy diet reviewed, encouraged to decrease saturated fat in diet [...] back meals reveal effectiveness of bolus dosing. 5. [facility]. Contact office if any issues or concerns with patterns of hypoglycemia, hyperglycemia, or diabetes medication issues. 6. Prescriptions: [facility]None at this time. DME: [facility]-None at this time. [facility] victoza[place]. Patient Assistance: [facility] for Novolog and Tresiba and [facility] * for Jardiance/victoza. Approved for 2024. 7. Prescriptions will not be filled unless you are compliant with follow up appointments or have a follow up appointment scheduled as ordered by your provider. Refills should be requested at the time of your visit. on triston; managed by pcp 2024 ADA Guidelines- target blood pressure < 130/80, if it can be safely attained. 05/26 ldl 44/trig 171- on statin; managed by cardiology see above see above keep f/u w/ pcp for further recommendation Future Tests Future scheduled test information is unavailable Pending Tests Test Name Ordered Date Scheduled Date Urine Culture October 11, 2024 8:09pm CT abdomen pelvis wo con July 27, 2024 12:12p m Future Visits Future appointment information is unavailable Referrals to Other Providers Referral information is unavailable Future Procedures Procedure Name Ordered Date Scheduled Date Urine Culture October 12, 2024 2:18pm September 8:09pm Urine Culture August 25, 2024 12:43pm Urinalysis August 25, 2024 12:43pm Future Medications Future medication information is unavailable Patient Instructions Instruction Admit Date Diabetes and diet August 03, 2024 9:17am
--- OUTSIDE RECORDS SUMMARY | 2024-10-19 10:45 | XMS_ITS | Encounter Summary ---
Author Organization [facility] Address [address] [address] Care Team Providers Care Hvac Controls Technician Name Role Phone Harley Goodman DO Primary Care Provider [phone] Encounter Details Date Type Department Care Team (Latest Contact Info) Description 10/19/2024 10:45 AM EDT Ancillary Procedure [facility] [address] [place] [address] Pre-operative cardiovascular examination, ICD in place Social History Tobacco Use Types Packs/Day Years Used Date Smoking Tobacco: Former Cigarettes Smokeless Tobacco: Never Alcohol Use Standard Drinks/Week Comments Never 0 (1 standard drink = 0.6 oz pur e alcohol) [facility] Utilities Answer Date Recorded In the [...] [facility] in the [facility] were you homeless or living in [...] Description 11/11/2024 8:30 AM EDT Hospital Encounter [facility] Main Operating Room [address] [place] [address] Last Mcmanus MD [address] [place] [address] [place] [address] 11/11/2024 8:30 AM EDT - 11/11/2024 10:00 AM EDT Surgery [facility] Main Operating Room [address] [place] [address] Last Mcmanus MD [address] [place] [address] [place] [address] TURBT (TRANSURETHRAL RESECTION OF BLADDER TUMOR) [92348 (CPT )] Scheduled Procedures Name Priority Associated Diagnoses Date/Ti me TURBT (TRANSURETHRAL RESECTION OF BLADDER TUMOR) Malignant neoplasm of urinary bladder, unspecified site (CMS/HCC) 11/11/2024 8:30 AM EDT documented as of this encounter Procedures Procedure Name Priority Date/Time Associated Diagnosis Comments CARDIAC DEVICE CHECK CHECK - REMOTE Routine 10/21/2024 2:52 PM EDT Pre-operative cardiovascular examination, ICD in place documented in this encounter Results * CARDIAC DEVICE CHECK - REMOTE ALERT - ICD (10/21/2024 2:52 PM EDT) us Mannie Armijo MD CV IMPLANTABLE CARDIAC DEVICE [place] OCEDURES Final Result CPACS documented in this encounter Visit Diagnoses Diagnosis Bladder cancer (CMS/HCC)- Primary Malignant neoplasm of bladder, part unspecified Pre-operative cardiovascular examination, ICD in place Pre-operative cardiovascular examination Malignant neoplasm of urinary bladder, unspecified site (CMS/HCC) documented in this encounter Care Teams Hvac Controls Technician Relationship Specialty Start Date End Date Harley Goodman DO [address] [place] [id number] PCP - General 03/02/22 documented as of this encounter
--- OUTSIDE RECORDS SUMMARY | 2024-10-26 08:12 | XMS_ITS | Clinical Summary ---
Author Organization [facility] Address [address] [place] [address] Care Team Providers Care Shop Tech Name Role Phone Harley Goodman Primary Care Provider [phone] Allergies Active Allergy Reactions Criticality Noted Date [...] Inject under the skin. Active HYDROcodone-diony taminophen ([place]) 5-325 MG tablet TAKE 1 TABLET BY [...] AM EDT Office Visit [facility] [address] [facility] [address] [place] [address] Kenneth Aguilar DPM Diabetes 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, without long-term current use of insulin (HCC) (Primary Dx); Pain due to onychomycosis of toenails of both feet; Xerosis cutis 09/24/2024 Bamboo flowsheet [facility] [address] [facility] [address] [place] [id number] Kenneth Aguilar DPM 09/24/2024 Travel from Last [...] EDT Office Visit [facility] [address] [facility] [address] [place] [address] Kenneth Aguilar DPM [address] [facility] [address] [place] [address] Health Maintenance Due Date Last Done Comments CT Colonography 1951 FIT 1950 FOBT 1950 Sigmoidoscopy 1950 FIT-DNA 08/16/2023 08/15/2020 Influenza Vaccine (#1) 2024 , 12/13/2022, 12/15/2021, Additional history exists Colonoscopy 07/11/2031 07/10/2021 Colorectal Cancer Screening 07/11/2031 Pneumococcal Vaccine: 65+ Years Completed 01/17/2018, 11/14/2016, 04/02/2016 Insurance [employer] [place] Care Teams Shop Tech Relationship Specialty Start Date End Date Harley Goodman DO [address] [facility] [place] [address] PCP - General Internal Medicine 11/07/23
--- OUTSIDE RECORDS SUMMARY | 2024-10-26 08:12 | XMS_ITS | Clinical Summary ---
Author Organization [employer] [facility] Address [id number] [address] [place] [address] Care Team Providers Care Sanding Machine Operator Or Tender Name Role Phone Harley Goodman DO Primary Care Provider [phone] Allergies No known active allergies Medications carvedilol [...] on file Insurance [employer] MEDICARE Care Teams Sanding Machine Operator Or Tender Relationship Specialty Start Date End Date Harley Goodman DO [facility] [place] [address] PCP - General Internal Medicine 02/14/18
--- OUTSIDE RECORDS SUMMARY | 2024-10-26 08:12 | XMS_ITS | Encounter Summary ---
Author Organization [facility] Address [address] [place] [address] Care Team Providers Care Aviation Technician Aircraft Name Role Phone Harley Goodman DO Primary Care Provider [phone] Encounter Details Date Type Department Care Team (Late st Contact Info) Description 07/16/2024 Orders Only [facility] [address] [place] [address] Mannie Armijo MD [address] [place] [address] Social History Tobacco Use Types Packs/Day Years Used Date Smoking Tobacco: Former Cigarettes Smokeless Tobacco: Never Alcohol Use Standard Drinks/Week Comments Never 0 (1 standard drink = 0.6 oz pur e alcohol) [facility] Utilities Answer Date Recorded In the past 12 months has e [employer], gas, oil, or water [employer] threatened to shut off services in your [...] living in a retirement (including now)? No 02/13/2024 Hunger Vital Sign [...] Encounter [facility] Main Operating Room [address] [place] [address] Last Mcmanus MD [address] [place] [address] [place] [address] 11/11/2024 8:30 AM EDT - 11/11/2024 10:00 AM EDT Surgery [facility] Main Operating Room [address] [place] [address] Last Mcmanus MD [address] [place] [address] [place] [address] TURBT (TRANSURETHRAL RESECTION OF BLADDER TUMOR) [88721 (CPT )] Scheduled Procedures Name Priority Associated [...] Mannie Armijo MD CV IMPLANTABLE CARDIAC DEVICE [place] OCEDURES Final Result documented in this encounter Visit Diagnoses Not on filedocumented in this encounter Care Teams Aviation Technician Aircraft Relationship Specialty Start Date End Date Harley Goodman DO [address] [place] [address] PCP - General 03/02/22 documented as of this encounter
--- OUTSIDE RECORDS SUMMARY | 2024-10-26 08:12 | XMS_ITS ---
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
--- OUTSIDE RECORDS SUMMARY | 2024-10-26 08:12 | XMS_ITS | Clinical Summary ---
Author Organization [facility] Address [address] [place] [address] Care Team Providers Care Aircraft Cleaning Supervisor Name Role Phone Harley Goodman DO Primary Care Provider [phone] Allergies No known active allergies Medications ALPRAZolam (Xanax) 0.5 mg tablet Take 1 tablet by mouth in the morning, afternoon, and at bedtime. Active aspirin 81 mg chewable tablet Chew 1 tablet every day by oral route. Active clopidogrel (Plavix) 75 mg tablet Take 1 tablet by mouth in the morning. 01/02/20 18 Active empagliflozin (Jardiance) 10 mg Take 1 tablet every day by oral route. 09/08/19 22 Active insulin detemir (Levemir) 100 unit/mL injection Inject 5 Units under the skin two times daily. SLIDING SCALE Active pantoprazole (ProtoNix) 40 mg EC tablet TAKE 1 TABLET BY MOUTH DAILY ON AN EMPTY STOMACH FOLLOWED BY BREAKFAST 30 MINUTES AFTER 07/18/19 23 Active docusate sodium (Colace) 100 mg capsule Take 100 mg by mouth in the morning. Active isosorbide mononitrate ER (Imdur) 60 mg 24 hr tabletIndicatio ns:Acute on chronic systolic heart failure (CMS/HCC),NSTEM I (non-ST elevated myocardial infarction) (CMS/HCC) Take 1 tablet (60 mg) by mouth 2 times daily. 180 tablet 3 04/22/19 24 Active spironolactone (Aldactone) 25 mg tabletIndicatio ns:NSTEMI (non-ST elevated myocardial infarction) (CMS/HCC) Take 1 tablet (25 mg) by mouth in the morning. 90 tablet 3 01/16/20 24 025 Active cholecalciferol (Vitamin D3) 25 MCG (1000 [...] Do not crush or chew. 291 tablet 02/15/20 24 Active ranolazine (Ranexa) 500 mg 12 hr tabletIndicatio ns:NSTEMI (non-ST elevated myocardial infarction) (CMS/HCC) Take 1 tablet (500 mg) by mouth two times daily. Do not crush, chew, or split. 180 tablet 3 03/19/20 24 025 Active thiamine (Vitamin B-1) 250 mg tablet Take 250 mg by mouth every other day. Active levoFLOXacin (Levaquin) 250 mg tablet 08/28/19 25 Active amLODIPine (Norvasc) 5 mg tabletIndicatio ns:Hypertension , unspecified type Take 1 tablet (5 mg) by mouth in the morning. 90 tablet 3 09/08/19 25 026 Active insulin degludec (TRESIBA FLEXTOUCH U-100 SUBQ) Inject 15 Units under the skin in the morning. Active oxyBUTYnin (Ditropan) 5 mg tabletIndicatio ns:Bladder spasms Take 1 tablet (5 mg) by mouth three times daily. 90 tablet 1 10/10/19 25 025 Active rosuvastatin (Crestor) 40 mg tabletIndicatio ns:NSTEMI (non-ST elevated myocardial infarction) (CMS/HCC) TAKE 1 TABLET BY MOUTH EVERYDAY AT BEDTIME 90 tablet 3 10/16/19 25 Active nitroglycerin (Nitrostat) 0.4 mg SL tabletIndicatio ns:Chest pain, unspecified type PLACE 1 TABLET UNDER THE TONGUE EVERY 5 MINUTES, UP TO 3 DOSES NEEDED FOR CHEST PAIN 100 tablet 2 10/17/19 25 Active rosuvastatin (Crestor) 40 mg tabletIndicatio ns:NSTEMI (non-ST elevated myocardial infarction) ([facility]/HCC) TAKE 1 TABLET BY MOUTH AT BEDTIME 90 tablet 3 01/12/20 24 025 Discontinued nitroglycerin (Nitrostat) 0.4 mg SL tabletIndicatio ns:Chest pain, unspecified type PLACE 1 TABLET UNDER TONGUE EVERY 5 MINS, UP TO 3 DOSES NEEDED FOR CHEST PAIN 90 tablet 2 01/31/20 24 025 Discontinued Active Problems Problem Noted Date Diagnosed Date Anticoagulated 10/01/2024 Arthritis 10/01/2024 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 [...] (03/21/2022): Added automatically from request for surgery [id number] Gastroesophageal reflux disease 03/02/2022 Increased immunoglobulin 03/02/2022 [...] check diet Coronary artery disease invo lving blue [place] coronary artery of [place] heart 09/19/2011 Assessment & Plan (08/13/2024 1:28 PM EDT): As above Type 1 diabetes mellitus 09/19/2011 Essential hypertension 09/19/2011 Encounters Date Type Department Care Team Description 10/19/2024 10:45 AM EDT Ancillary Procedure [facility] [address] [place] [address] Pre-operative cardiovascular examination, ICD in place 10/18/2024 Orders Only [facility] [address] [place] [address] Fabricio Galindo MD 10/16/2024 Telephone [facility] Urology [address] [place] [address] Trice Rodrigez MA 10/16/[address] [facility] [address] [place] [address] Pinky Bishop MD Chest pain, unspecified type (Primary Dx) 10/15/[address] [facility] [address] [place] [address] Kevin Jacobs MD NSTEMI (non-ST elevated myocardial infarction) (CMS/HCC) (Primary Dx) 10/09/2024 Orders Only [facility] Urology [address] [place] [address] Last Mcmanus MD Bladder mass (Primary Dx); Urinary tract infection without hematuria, site unspecified 10/09/2024 Orders Only [facility] Urology [address] [place] [address] Last Mcmanus MD Bladder spasms (Primary Dx); Malignant neoplasm of urinary bladder, unspecified site (CMS/HCC) 10/08/2024 9:00 AM EDT Office Visit [facility] [address] [place] [address] Pinky Bishop MD Cardiac pacemaker in situ (Primary Dx); NSTEMI (non-ST elevated myocardial infarction) ([facility]); Coronary artery disease involving blue [place] coronary artery of [place] heart without angina pectoris; Hypertension, unspecified type; Coronary artery disease of [place] artery of [place] heart with stable angina pectoris 10/08/2024 Telephone [facility] Urology [address] [place] [address] Trice Rodrigez MA bladder spasms 10/06/2024 8:45 AM EDT Clinical Support [facility] Urology [address] [place] [address] 09/29/2024 1:37 PM EDT Anesthesia Event [facility] Main Operating Room [address] [place] [address] Dorcas Dang MD Meehl, Austin, MD 09/29/2024 12:30 PM EDT - 09/29/2024 2:00 PM EDT Surgery [facility] Main Operating Room [address] [place] [address] Last Mcmanus MD TURBT (TRANSURETHRAL RESECTION OF BLADDER TUMOR) [77133 (CPT )] 09/29/2024 10:39 AM EDT - 09/29/2024 9:00 PM EDT Hospital Encounter [facility] Main Operating Room [address] [place] [phone] Last Mcmanus MD Lesion of bladder Discharge Disposition: Home or Self Care () 09/29/2024 Travel 09/25/2024 9:00 AM EDT Pre-Admission Testing [facility] Pre-Anesthesia Clinic [address] [place] [address] 09/25/2024 Orders Only [facility] Pre-Anesthesia Clinic [address] [place] [address] Ember Adams, ALBINO 09/25/2024 Orders Only [facility] Pre-Anesthesia Clinic [address] [place] [address] Kb Petersen RN 09/25/2024 Orders Only [facility] [place] [address] Will Pepe CNP 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) (Primary Dx) 09/25/2024 Orders Only [facility] [place] [address] Will Pepe CNP 09/25/2024 Travel 09/21/2024 7:00 PM EDT Ancillary Procedure [facility] [place] [address] Pre-operative cardiovascular examination, ICD in place 09/21/2024 Orders Only [facility] Urology [address] [place] [address] Last Mcmanus MD Malignant neoplasm of urinary bladder, unspecified site (CMS/HCC) (Primary Dx); Urinary tract infection without hematuria, site unspecified; Other specified disorders of bladder 09/21/2024 Telephone [facility] Urology [address] [place] [address] Serenity De Leon MA 09/18/2024 Orders Only [facility] Pre-Anesthesia Clinic [address] [place] [address] Kb Petersen RN 09/16/2024 Orders Only [facility]iology [facility] [address] [address] Fabricio Galindo MD 09/11/2024 Orders Only [facility] Cardiology Clinic [facility] [address] [place] [address] Kevin Jacobs MD 09/07/[address] [facility] [address] [place] [address] Criselda Rebollar MA Hypertension, unspecified type 09/02/[address] [facility] [address] [place] [address] Criselda Rebollar MA 09/02/2024 Orders Only [facility] Pre-Anesthesia Clinic [address] [place] [address] [place] [address] Kb Petersen RN 08/28/2024 10:05 AM EDT Lab [facility] Outpatient Draw Station [address] [place] [address] [place] [phone] Lesion of bladder; Encounter for screening for malignant neoplasm of prostate; Urinary tract infection without hematuria, site unspecified; Other specified disorders of bladder 08/28/2024 8:30 AM EDT Office Visit [facility] Urology [address] [place] [address] [place] [address] Last Mcmanus MD Lesion of bladder (Primary Dx); Encounter for screening for malignant neoplasm of prostate; Urinary tract infection without hematuria, site unspecified; Other specified disorders of bladder 08/28/2024 - 08/28/2024 11:59 PM EDT Hospital Encounter [facility] Radiology External Films [address] [facility] [phone] Discharge Disposition: Home or Self Care () 08/20/2024 9:45 AM EDT Office Visit [facility] [address] [facility] [place] [address] Pinky Bishop MD Chronic systolic heart failure (CMS/HCC) (Primary Dx); Coronary artery disease of [place] artery of [place] heart with stable angina pectoris; Primary hypertension; Status post implantation of automatic cardioverter/defibrill ator (AICD); Palpitations 08/14/2024 Orders Only [facility] [address] [place] [address] Kevin Jacobs MD 08/13/2024 11:14 AM EDT - 08/14/2024 6:44 PM EDT Hospital Encounter [facility] [address] [place] [address] Tomas Covington MD Saad, Hani, MD Chest pain (Primary Dx); Hypertension, unspecified type Discharge Disposition: Home or Self Care () 08/13/2024 Travel 08/07/2024 Orders Only [facility] [address] [place] [phone] Fabricio Galindo MD 08/04/2024 - 08/04/2024 11:59 PM EDT Hospital Encounter [facility] Radiology External Films [address] [place] [address] Bladder tumor Discharge Disposition: Home or Self Care () 08/04/2024 Orders Only [facility] Urology [address] [place] [address] Last Mcmanus MD Bladder tumor from Last 3 Months Immunizations Immunization Administration Dates Next Due Influenza Whole 01/19/2008 Influenza, High Dose Seasonal, Preservative Free 01/16/2017 Influenza, Seasonal, Quadrivalent, Adjuvanted Influenza, injectable, quadrivalent, preservativ e free 11/30/2016 Influenza, seasonal, injectable 01/23/2012,12/13 Influenza, trivalent, adjuvanted 01/17/2018 Novel [id number], preservative-free 01/27 Pneumococcal Conjugate PCV 13 11/14/2016 [...] drink = 0.6 oz pur e alcohol) [facility] Utilities Answer Date Recorded In [...] in the past 12 m [facility], were you homeless or living in [...] Description 11/11/2024 8:30 AM EDT Hospital Encounter [facility] Main Operating Room [address] [place] [address] Last Mcmanus MD [address] [place] [address] [place] [phone] 11/11/2024 8:30 AM EDT - 11/11/2024 10:00 AM EDT Surgery [facility] Main Operating Room [address] [place] [address] Last Mcmanus MD [address] [place] [address] [place] [phone] TURBT (TRANSURETHRAL RESECTION OF BLADDER TUMOR) [64978 (CPT )] Scheduled Procedures Name Priority Associated Diagnoses Date/Ti me TURBT (TRANSURETHRAL RESECTION OF BLADDER TUMOR) Malignant neoplasm of urinary bladder, unspecified site (CMS/HCC) 11/11/2024 8:30 AM EDT Health Maintenance Due Date Last Done Comments CT Colonography 1950 Diabetes: Hemoglobin A1C 1950 FOBT 1950 Medicare Annual Wellness (AWV) 1950 Sigmoidoscopy 1950 Diabetes: Retinopathy Screening 11/07/1961 Depression Screening 1963 Adult Tetanus 11/07/1973 Zoster Vaccines (1 of 2) 11/07/2001 FIT 08/15/2021 08/15/2020 FIT-DNA 08/16/2023 08/15/2020 COVID-19 Vaccine ( season) 2023 02/21/2021, [...] this topic Medical Devices Implanted Type Area Priming Machine Operator Device Identifier Shelf Expiration Date Model / Serial / Lot Vigilant X4 Auctioneer Art-D Is-1/Df4/Is4 Implanted:Qty: 1 on 02/12/2023 by Kevin Jacobs MD at [facility] SWIMMER-D ICD [employer] [id number] 09/09/2024 [id number] / [id number] / Stent,Synergy Mr 4.00 X 28 - [id number] Implanted:Qty: 1 on 09/27/2023 by Petar Foreman MD at [facility] Drug Eluting Stent Hard [employer] [id number] 04/09/2024 [id number] / / [id number] Ingevity+ Is-1 Bi Positive Fix Ra/Rv 52cm Implanted:Qty: 1 on 03/21/2022 by Kevin Jacobs MD at [facility] Lead [employer] [id number] 03/09/2024 7841 / [id number] / Ingevity+ Is-1 Bi Positive Fix Ra/Rv 45cm Implanted:Qty: 1 on 03/21/2022 by Kevin Jacobs MD at [facility] Lead [employer] [id number] 01/02/2024 7840 / [id number] / [place] 4-Front S Active Fix Single Coil 59cm Implanted:Qty: 1 on 02/12/2023 by Kevin Jacobs MD at [facility] Lead [employer] [id number] 01/06/2025 0672 / [id number] / Lead,Acuity X4,Spiral L - [id number] - [id number] Implanted:Qty: 1 on 02/12/2023 by Kevin Jacobs MD at [facility] Lead [employer] [id number] 01/13/2025 4677 / [id number] / Pacer,Accolade ,Mri Dr Castelan - [id number] - [id number] Implanted:Qty: 1 on 03/21/2022 by Kevin Jacobs MD at [facility] Pacemaker [employer] 02/05/2024 [id number] / [id number] / [id number] Description:Mode: DDD RYTHMIQ: OFF LRL / MTR [...] in place CARDIAC DEVICE CHECK - REMOTE ALERT - ICD Routine 10/18/2024 12:00 AM EDT CARDIAC DEVICE CHECK CHECK - REMOTE Routine 10/14/2024 5:23 PM EDT Pre-operative cardiovascular examination, ICD in place POCT GLUCOSE METER UNSOLICITED RESULTS Routine 09/29/2024 3:04 PM EDT HISTOLOGY - TISSUE EXAM Routine 09/30/19 2:32 PM EDT Lesion of bladder NON-APPLIED ANTHROPOLOGIST CYTOLOGY - CELLULAR EXAM Routine 09/29/2024 2:15 PM EDT Lesion of bladder ANESTHESIA SPINAL BLOCK Routine 09/30/19 1:45 PM EDT CA CYSTOURETHROSCOPY W/DEST &/RMVL MED BLADDER MARIO 09/29/2024 1:37 PM EDT Lesion of bladder POCT GLUCOSE METER UNSOLICITED RESULTS Routine 09/29/2024 11:12 AM EDT CARDIAC DEVICE CHECK - REMOTE - ICD Routine 09/16/2024 12:00 AM EDT CARDIAC DEVICE CHECK - REMOTE - ICD Routine 09/11/2024 12:00 AM EDT CBC WITH AUTO DIFFERENTIAL Routine [...] AND DIFFERENTIAL Routine 08/13/2024 2:21 PM EDT CARDIAC DEVICE CHECK - REMOTE ALERT - ICD Routine 08/07/2024 12:00 AM EDT XR TRANSFER OF OUTSIDE FILMS Routine 08/04/2024 12:00 AM EDT Bladder tumor from Last 3 Months Results * CARDIAC DEVICE CHECK - REMOTE ALERT - ICD (10/21/2024 2:52 PM EDT) Only the most recent of2 resultswithin the time period is included. Mannie Armijo MD CV IMPLANTABLE CARDIAC DEVICE CA OCEDURES Final Result CPACS * Cardiac device check - Remote alert ICD (10/18/2024 12:00 AM EDT) Only the most recent of2 resultswithin the time period is included. Anatomical Region Laterality Modality Other 10/18/2024 Fabricio Galindo MD CV IMPLANTABLE CARDIAC DEVICE PROCEDURES Final Result * (ABNORMAL) POCT glucose meter (09/29/2024 3:04 PM EDT) Only the most recent of8 resultswithin the time period is included. Glucose POC 143(H) 70 - 105 mg/dL 09/29/2024 3:16 PM EDT [facility] ([facility]) Comment:[email or web address] Blood Capillary blood specimen / Unknown 09/29/2024 3:04 PM EDT 09/29/2024 3:15 PM EDT Narrative [facility] ([facility]) - 09/29/2024 3:16 PM EDT Waived Testing in the ED is performed under the ED CLIA certificate #[id number]. us Last Mcmanus MD LAB BLOOD ORDERABLES Final Resul t [facility] ([facility]) [address] [place] [address] * Histology - tissue exam (09/29/2024 2:32 PM EDT) Case Report Surgical Pathology Case: [id number] Authorizing Provider: Last Mcmanus MD Collected: 09/29/2024 1432 Ordering Location: [facility] Main Operating Room Received: 09/29/2024 1514 Pathologist: Kevin Dawson MD Specimen: Urinary Bladder, Bladder Tumor 10/05/2024 11:05 AM EDT [facility] ([facility]) Final Diagnosis A. Bladder tumor, transurethral resection: - Invasive high-grade papillary urothelial carcinoma. - Small fragments of muscularis propria present, uninvolved by neoplasm. - See synoptic report. 10/05/2024 11:05 AM EDT [facility] ([facility]) at 1104 EDT Preliminary Diagnosis 10/05/2024 11:05 AM EDT [facility] ([facility]) Clinical Information Post-Op Diagnoses N32.9 - Lesion of bladder [ICD-10-CM] 10/05/2024 11:05 AM EDT [facility] ([facility]) Comment This case was reviewed in intradepartmental consensus with agreement of the diagnosis. 10/05/2024 11:05 AM EDT [facility] ([facility]) Gross Description A. Urinary Bladder. The specimen is received in formalin labeled Lani Mega and bladder tumor. It consists of a 2.7 x 2.5 x 0.6 cm aggregate of red-pink to vázquez-brown, rubbery, shaggy fragments of soft tissue. The specimen is entirely submitted in 3 cassettes. Sangeetha Muro, [facility] Licensed Practical Nurse student Hugo Su[facility]rez [facility] Licensed Practical Nurse 10/05/2024 11:05 AM EDT [facility] ([facility]) Microscopic Description Microscopic examination performed. 10/05/2024 11:05 AM EDT [facility] ([facility]) Synoptic Checklist URINARY BLADDER: Biopsy and Transurethral [...] muscle): Present in specimen 10/05/2024 11:05 AM EDT [facility] ([facility] Tissue Urinary bladder structure / Unknown 09/29/2024 2:32 PM EDT 09/29/2024 3:14 PM EDT Comment:Pre-op diagnosis: Lesion of bladder [N32.9] us Last Mcmanus MD LAB PATHOLOGY ORDERABLES Final R esult [facility] ([facility]) [address] [place] [address] * Non-synthetic staple extruder cytology - cellular exam (09/29/2024 2:15 PM EDT) Case Report Non-gynecologic Cytology Case: [id number] Authorizing Provider: Last Mcmnaus MD Collected: 09/29/2024 1415 Ordering Location: [facility] Main Operating Room Received: 09/30/2024 0804 Pathologist: Omayra Sullivan MD Specimen: Urine 10/01/2024 6:05 PM EDT [facility] ([facility]) Final Diagnosis A. Urine, cystoscopic: - Atypical urothelial cells. - Marked acute inflammation. 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 10/01/2024 6:05 PM EDT [facility] ([facility]) at 1805 EDT Comment See also concurrent surgical case, [id number]. 10/01/2024 6:05 PM EDT [facility] ([facility]) Microscopic Description Satisfactory for evaluation. Examination of the ThinPrep slide reveals atypical cells, urothelial cells, abundant acute inflammation, blood, fungal spores consistent with Coretta species and debris. 10/01/2024 6:05 PM EDT [facility] ([facility]) Clinical Information Post-Op Diagnoses N32.9 - Lesion of bladder [ICD-10-CM] 10/01/2024 6:05 PM EDT [facility] ([facility]) Gross Description 80 mL clear, yellow fluid 10/01/2024 6:05 PM EDT [facility] ([facility]) Urine Urine specimen / Unknown 09/29/2024 2:15 PM EDT 09/30/2024 8:04 AM EDT Comment:Pre-op diagnosis: Lesion of bladder [N32.9] us Obi Marietta LEMUS LAB CYTOLOGY ORDERABLES Final Re sult [facility] ([facility]) [address] [place] [address] * Spinal Block (09/29/2024 1:45 PM EDT) Dorcas Edgar MD - 09/29/2024 1:45 PM EDT Dorcas Dang MD 09/29/2024 3:24 PM Spinal Block Patient location during procedure: OR Start time: 09/29/2024 1:45 PM End time: 09/29/2024 1:55 PM Reason for block: primary anesthetic Staffing Performed: resident/BRIDGE ENGINEER/CAA Anesthesiologist: Dorcas Dang MD Resident/BRIDGE ENGINEER: Mirela Devlin MD Performed by: Mirela [...] tolerated procedure well with no immediate complications Dorcas Dang MD ANESTHESIA ORDERABLES Final Res ult * Cardiac device check - Remote ICD (09/16/2024 12:00 AM EDT) Only the most recent of3 resultswithin the time period is included. Anatomical Region Laterality Modality Other 09/16/2024 Fabricio Galindo MD CV IMPLANTABLE CARDIAC DEVICE PROCEDURES Final Result * (ABNORMAL) CBC auto differential (08/28/2024 9:58 AM EDT) Only the most recent of2 resultswithin the time period is included. Auto WBC 9.60 4.00 - 10.60 10*3/uL 08/28/2024 11:15 AM EDT [facility] ([facility]) RBC 4.93 4.20 - 5.70 10*6/uL 08/28/2024 11:15 AM EDT [facility] ([facility]) Hemoglobin 14.4 13.0 - 17.0 g/dL 08/28/2024 11:15 AM EDT [facility] ([facility]) Hematocrit 44.8 39.0 - 50.0 % 08/28/2024 11:15 AM EDT [facility] ([facility]) MCV 90.9 82.0 - 98.0 fL 08/28/2024 11:15 AM EDT [facility] ([facility]) MCH 29.2 27.0 - 33.0 pg 08/28/2024 11:15 AM EDT [facility] ([facility]) MCHC 32.1 32.0 - 35.0 g/dL 08/28/2024 11:15 AM [facility] ([facility]) RDW 14.1 11.5 - 15.0 % 08/28/2024 11:15 AM T [facility] ([facility]) Neutrophils % 69.9 40.0 - 72.0 % 08/28/2024 11:15 AM [facility] ([facility]) Lymphocytes % 18.9(L) 20.0 - 45.0 % 08/28/2024 11:15 AM T [facility] ([facility]) Monocytes % 7.9 5.0 - 12.0 % 08/28/2024 11:15 AM [facility] ([facility]) Eosinophils % 1.8 0.0 - 6.0 % 08/28/2024 11:15 AM [facility] ([facility]) Basophils % 0.9 0.0 - 1.0 % 08/28/2024 11:15 AM [facility] ([facility]) Neutrophils Absolute 6.71 1.60 - 7.60 10*3/uL 08/28/2024 11:15 AM T [facility] ([facility]) Lymphocytes Absolute 1.81 1.20 - 4.00 10*3/uL 08/28/2024 11:15 AM T [facility] ([facility]) Monocytes Absolute 0.76 0.10 - 1.00 10*3/uL 08/28/2024 11:15 AM [facility] ([facility]) Eosinophils Absolute 0.17 0.00 - 0.50 10*3/uL 08/28/2024 11:15 AM T [facility] ([facility]) Basophils Absolute 0.09 0.00 - 0.20 10*3/uL 08/28/2024 11:15 AM [facility] ([facility]) Platelets 278 150 - 400 10*3/uL 08/28/2024 11:15 AM [facility] ([facility]) nRBC % 0.0 0 % 08/28/2024 11:15 AM [facility] ([facility]) Immature Granulocytes % 0.6 0.0 - 1.0 % 08/28/2024 11:15 AM [facility] ([facility]) Immature Granulocytes Absolute 0.06 0.00 - 0.20 10*3/uL 08/28/2024 11:15 AM EDT [facility] ([facility]) Blood Venous blood specimen / Unknown Venipuncture / Unknown 08/28/2024 9:58 AM EDT 08/28/2024 10:46 AM EDT Obrajeev Mcmanus MD LAB BLOOD ORDERABLES Final Resul t Performing Organization Address City/[facility] Co de Phone Number [facility] [facility]) [address] [place] [address] [id number] * APTT (08/28/2024 9:58 AM EDT) aPTT 29.3 25.0 - 35.0 Seconds 08/28/2024 11:06 AM EDT [facility] ([facility]) Comment:Clinical significanc e of the APTT is questionable in the presence of heparin. Blood Venous blood specimen / Unknown Venipuncture / Unknown 08/28/2024 9:58 AM EDT 08/28/2024 10:38 AM EDT Last Mcmanus MD LAB BLOOD ORDERABLES Final Resul t Performing Organization Address [facility] de Phone Number [facility]) [address] [place] [address] * Protime-INR (08/28/2024 9:58 AM EDT) Protime 14.2 12.3 - 14.8 Seconds 08/28/2024 11:06 AM EDT [facility] ([facility]) INR 1.10 0.90 - 1.10 08/28/2024 11:06 AM EDT [facility] ([facility]) Comment: ACCCP RECOMMENDED INR FOR WARFARIN THERAPY [...] ORDERABLES Final Resul t Performing Organization Address City/[facility]/ZIP Co de Phone Number [facility]) [address] [place] [address] * Urine culture, routine (08/28/2024 9:58 AM EDT) Pathologist [facility] Urine Culture <10,000 CFU/ML No Significant Growth MALCOLM 08/30/2024 6:58 AM EDT [facility] ([facility]) Urine Urine specimen obtained by clean catch procedure / Unknown Non-blood Collection / Unknown 08/28/2024 9:58 AM EDT 08/28/2024 10:38 AM EDT Last Mcmanus MD LAB MICROBIOLOGY - GENERAL ORDER KURTIS Final Result [facility]) [address] [place] [address] * PSA Screening (08/28/2024 9:58 AM EDT) PSA 1.5 0.4 - 4 ng/mL 08/28/2024 11:18 AM EDT [facility] ([facility]) Blood Venous blood specimen / Unknown Venipuncture / Unknown 08/28/2024 9:58 AM EDT 08/28/2024 10:45 AM EDT us Last Mcmanus MD LAB BLOOD ORDERABLES Final Resul t [facility] ([facility]) [address] [place] [address] * (ABNORMAL) Comprehensive metabolic panel (08/28/2024 9:58 AM EDT) Only the most recent of2 resultswithin the time period is included. Sodium 138 136 - 145 mmol/L 08/28/2024 11:14 AM EDT [facility] ([facility]) Potassium 5.9(H) 3.5 - 5.1 mmol/L 08/28/2024 11:14 AM EDT [facility] ([facility]) Chloride 105 98 - 107 mmol/L 08/28/2024 11:14 AM EDT [facility] ([facility]) CO2 28 21 - 31 mmol/L 08/28/2024 11:14 AM EDT [facility] ([facility]) Anion Gap 11 7 - 20 mmol/L 08/28/2024 11:14 AM EDT [facility] ([facility]) BUN 30(H) 7 - 25 mg/dL 08/28/2024 11:14 AM EDT [facility] ([facility]) Creatinine 1.95(H) 0.70 - 1.30 mg/dL 08/28/2024 11:14 AM EDT [facility] ([facility]) BUN/Creatinine Ratio 15.4 08/01 11:14 AM EDT [facility] ([facility]) Glucose 185(H) 70 - 100 mg/dL 08/28/2024 11:14 AM EDT [facility] ([facility]) Calcium 9.6 8.6 - 10.3 mg/dL 08/28/2024 11:14 AM EDT [facility] ([facility]) AST 20 13 - 39 U/L 08/28/2024 11:14 AM EDT [facility] ([facility]) ALT (SGPT) 17 7 - 52 U/L 08/28/2024 11:14 AM EDT [facility] ([facility]) Alkaline Phosphatase 117(H) 34 - 104 U/L 08/28/2024 11:14 AM EDT [facility] ([facility]) Total Protein 7.7 6.0 - 8.3 g/dL 08/28/2024 11:14 AM EDT [facility] ([facility]) Albumin 4.5 3.5 - 5.7 g/dL 08/28/2024 11:14 AM EDT [facility] ([facility]) Total Bilirubin 0.6 0.3 - 1.0 mg/dL 08/28/2024 11:14 AM EDT [facility] ([facility]) eGFR 35.9(L) >60.0 mL/min/1. 73m*2 08/28/2024 11:14 AM EDT [facility] ([facility]) Comment:[facility] s estimated glomerular filtration rate [...] MD LAB BLOOD ORDERABLES Final Resul t [facility] ([facility]) [address] [place] [address] * CT transfer of outside films (08/28/2024 12:00 AM EDT) Narrative IMAGING - 08/28/2024 9:30 AM EDT This order has been auto-finalized and does not contain a result. Last Mcmanus MD IMG CT PROCEDURES Final Result IMAGING * Lexiscan Stress Myocardial Perfusion Imaging (08/14/2024 11:03 AM EDT) Anatomical Region Laterality Modality Other 08/14/2024 10:4 3 AM EDT Narrative 08/14/2024 9:52 AM EDT 1 1 [facility] Heart Station [address] [place] [address] [phone] (fax) [facility] Stress Myocardial Perfusion Imaging- [facility] Name: LANI LIZAMA Study Date: 08/14/2024 10:43 AM B/P: / HR: Date of : 1950 Location: [facility] Height: 67 in. Age: 73 [...] Lexiscan Exercise Time: 03:00 Device: Treadmill HR Rush Used: 12.00 % HR Recovery: -1 bpm Frequent VE: 0 VE/min Resolution: No Symptoms Max HR: 93 bpm Target HR: 125 bpm Achieved: No Resting HR: 82 bpm Max Predicted HR: 148 bpm Achv. of Max Predicted: 62 % BP Max: 154/89 BP at Rest: 147/72 Max RPP: 49032 mmHg*bpm Max ST Lead: V6 Max ST Phase: Postinfsn Stage No. in Phase: [address] Stage: 3-[address] Amplitude: -0.[address] [place]: -0.470 mV/s Max ST Time in Phase: 03:30 Artifact Count: 0 Chest Pain: no Pharmalogical Stress Examination Protocol Stage Name Time in Stage Load Heart Rate BP Dosage ST Level Cardiac Arrhy Cardiac Symp. Other Pain Changes Symptom Supine 10:26 1.00 mets 82 bpm 147/72 -0.750 mm Infusion 30 seconds 00:30 1.00 mets 82 bpm 147/72 -0.650 mm [id number] 00:30 1.00 mets 87 bpm 147/72 -0.650 [...] Cardiovascular Group Referring Physician: HARLEY [place] Stress Environmental Air Specialist: Angely Dalal Dope Worker: Shira Zhou Ordering Physician: TATIANNA HAYWARD Advanced Practitioner: Bozena Santacruz NP Nurse: Juli Salazar Resting Perfusion Procedure Note Yuridia Velez MD - 08/14/2024 1 1 [facility] Heart Station [address] [place] [address] [phone] (fax) [facility] Stress Myocardial Perfusion Imaging- [facility] Name: LANI LIZAMA Study Date: 08/14/2024 10:43 AM B/P: / HR: Date of : 1950 Location: [facility] Height: 67 in. Age: 73 [...] Lexiscan Exercise Time: 03:00 Device: Treadmill HR Rush Used: 12.00 % HR Recovery: -1 bpm Frequent VE: 0 VE/min Resolution: No Symptoms Max HR: 93 bpm Target HR: 125 bpm Achieved: No Resting HR: 82 bpm Max Predicted HR: 148 bpm Achv. of Max Predicted: 62 % BP Max: 154/89 BP at Rest: 147/72 Max RPP: 67546 mmHg*bpm Max ST Lead: V6 Max ST Phase: Postinfsn Stage No. in Phase: [address] Stage: 3-[address] Amplitude: -0.[address] [place]: -0.470 mV/s Max ST Time in Phase: 03:30 Artifact Count: 0 Chest Pain: no Pharmalogical Stress Examination Protocol Stage Name Time in Stage Load Heart Rate BP Dosage ST Level Cardiac Arrhy Cardiac Symp. Other Pain Changes Symptom Supine 10:26 1.00 mets 82 bpm 147/72 -0.750 mm Infusion 30 seconds 00:30 1.00 mets 82 bpm 147/72 -0.650 mm [id number] 00:30 1.00 mets 87 bpm 147/72 -0.650 [...] Cardiovascular Group Referring Physician: HARLEY GOODMAN Stress Environmental Air Specialist: Angely Dalal Dope Worker: Shira Zhou Ordering Physician: TATIANNA HAYWARD Advanced Practitioner: Bozena Santacruz NP Nurse: Juli Salazar Resting Perfusion us Tatianna Hayward MD CV STRESS PROCEDURES Final Result * COMPLETE ECHO (TTE) W/ IMAGING AGENT (08/14/2024 8:59 AM EDT) Anatomical Region Laterality Modality Other 08/14/2024 8:33 AM EDT Narrative 08/14/2024 9:44 AM EDT 1 1 [facility] Heart Station [address] [place] [address] [phone] (fax) Echocardiogram-[facility] Name: LANI LIZAMA Study Date: 08/14/2024 08:33 AM B/P: 118 mmHg/75 mmHg HR: 75 bpm Date of : 1950 Location: [facility] Height: 67 in. Age: 73 [...] Procedure Staff Reading Group: [facility] Civil Engineering Teacher: MASTER Ortega, RDCS Ordering Physician: TATIANNA HAYWARD Wall Motion Scores -1 - hyperkinesia, 0 - not evaluated, 1 - normal, 2 - hypokinesia, 3 - akinesia, 4 - dyskinesia Procedure Note Fabricio Galindo MD - 08/14/2024 1 1 [facility] Heart Station [address] [place] [address] [phone] (fax) Echocardiogram-[facility] Name: LANI LIZAMA Study Date: 08/14/2024 08:33 AM B/P: 118 mmHg/75 mmHg HR: 75 bpm Date of : 1950 Location: [facility] Height: 67 in. Age: 73 [...] Procedure Staff Reading Group: [facility] Civil Engineering Teacher: MASTER Ortega, RDCS Ordering Physician: TATIANNA HAYWARD [...] 160(HH) <20 ng/L 08/14/2024 8:12 AM EDT [facility] ([facility]) Blood Venous blood specimen / Unknown Venipuncture / Unknown 08/14/2024 7:14 AM EDT 08/14/2024 7:25 AM EDT Devante Leon MD LAB BLOOD ORDERABLES Final Resul t Performing Organization Address City/[facility]/ZIP Co de Phone Number [facility] ([facility]) [address] [place] [address] * Lavender Top (08/14/2024 7:14 AM EDT) Extra Tube Hold for add-ons. 08/14/2024 9:01 AM EDT [facility] ([facility]) Comment:Auto resulted. Blood Venous blood specimen / Unknown 08/14/2024 7:14 AM EDT 08/14/2024 7:25 AM EDT Devante Leon MD LAB BLOOD ORDERABLES Final Resul t Performing Organization Address City/[facility]/ZIP Co de Phone Number [facility] ([facility]) [address] [place] [address] * ECG 12 lead (08/13/2024 5:41 PM EDT) Ventricular Rate 86 BPM GE MUSE Atrial Rate 86 BPM GE MUSE CA Interval 154 ms GE MUSE QRS DURATION 144 ms GE MUSE QT Interval 424 ms GE MUSE QTC CALCULATION(BAZE TT) 507 ms GE MUSE P [place] 37 degrees GE MUSE R-[place] -56 degrees GE MUSE T Wave [place] 114 degrees GE MUSE 08/13/2024 5:25 PM [...] 9:47:29 PM Tatianna Hayward MD ECG ORDERABLES Final Resu lt GE MUSE * Phosphorus (08/13/2024 2:21 PM EDT) Phosphorus 3.6 2.5 - 5.0 mg/dL 08/13/2024 3:18 PM EDT [facility]) Blood Venous blood specimen / Unknown Venipuncture / Unknown 08/13/2024 2:21 PM EDT 08/13/2024 2:50 PM EDT Graeme Sorensen MD LAB BLOOD ORDERABLES Final Re sult Performing Organization Address [facility] Co de Phone Number [facility]) [address] [place] [address] * Magnesium (08/13/2024 2:21 PM EDT) Magnesium 1.9 1.9 - 2.7 mg/dL 08/13/2024 3:18 PM EDT [facility]) Blood Venous blood specimen / Unknown Venipuncture / Unknown 08/13/2024 2:21 PM EDT 08/13/2024 2:50 PM EDT Graeme Sorensen MD LAB BLOOD ORDERABLES Final Re sult Performing Organization Address City/[facility] Co de Phone Number [facility]) [address] [place] [address] * XR transfer of outside films (08/04/2024 12:00 AM EDT) Narrative IMAGING - 08/04/2024 10:24 AM EDT This order has been auto-finalized and does not contain a result. us Obi Marietta LEMUS IMG XR PROCEDURES Final Result IMAGING from Last 3 Months Insurance MEDICARE Member Subscriber Plan / Payer (Ef fective 2016-Present) Name:Lani Lizama Member ID:[id number] Relation to Subscriber:Self Name:Lani Lizama Subscriber ID:[id number] Payer ID:[id number] Group ID:Not on file Type:Medicare Address: [facility] [id number] [place] Advance Directives * Full Code (Latest Code [...] 12:52 PM 01/28/2023 8:05 PM Care Teams Aircraft Cleaning Supervisor Relationship Specialty Start Date End Date Harley Goodman DO [address] [facility] [place] [id number] PCP - General 03/02/22
--- OUTSIDE RECORDS SUMMARY | 2024-10-26 08:12 | XMS_ITS | Clinical Summary ---
Author Organization [facility] Address [address] [place] [address], [address] [place] [address] Care Team Providers Care Gas Or Water Meter Installer Name Role Phone Unavailable Primary Care Provider [...]
--- OUTSIDE RECORDS SUMMARY | 2024-10-26 08:14 | XMS_ITS | Clinical Summary ---
Author Organization [facility] Address [address] [place] [address] Care Team Providers Care Knitted Goods Shaper Name Role Phone Harley Goodman DO Primary Care Provider [phone] Allergies Active Allergy Reactions Criticality Noted Date [...] influenza vaccine, whole virus 01/19/2008 novel influenza ([id number]) vaccine, PF 01/27/2009 pneumococcal conjugate (PCV1 3) [...] 10/25/2020, 0 04/25/2020, 10/26/2019, Additional history exists Advance Directive Discussion 04/01/2024 Influenza Vaccine (#1) [...] COMP METABOLIC PANEL (10/25/2020 10:04 AM EDT) Pathologist [facility] Protein, Total 6.6 6.3 - 8.0 g/dL [...] 74 - 99 mg/dL 10/25/2020 10:27 AM T [facility] Comment: The [place] Diabetes Association (ADA) provides guidance for cutoff [...] Standards of Medical Care in Diabetes 2016, [place] Diabetes Association. Diabetes Care. 2016.39(Suppl 1). BUN [...] us Agustin Walker MD LABORATORY Final Result [address] [address] [facility] [address] [place], [place] from Last 3 Months or Most Recently Relevant to Health Maintenance Insurance MEDICARE [address] MEDICARE SUPPLEMENT Care Teams Knitted Goods Shaper Relationship Specialty Start Date End Date Harley Goodman DO [address] [place] [address] PCP - General Internal Medicine 07/18/18
--- OUTSIDE RECORDS SUMMARY | 2024-10-26 08:14 | XMS_ITS | Encounter Summary ---
Author Organization [facility] Address [address] [place] [address] Care Team Providers Care Clean Out Driller Helper Name Role Phone Harley Goodman DO Primary Care Provider [phone] Encounter Details Date Type Department Care Team (Late st Contact Info) Description 10/18/[address] [facility] [address] [place] [address] Fabricio Galindo MD [address] [place] [address] Social History Tobacco Use Types Packs/Day Years Used Date Smoking Tobacco: Former Cigarettes Smokeless Tobacco: Never Alcohol Use Standard Drinks/Week Comments Never 0 (1 standard drink = 0.6 oz pur e alcohol) [facility] Utilities Answer Date Recorded In the past 12 months has e [employer], gas, oil, or water [employer] threatened to shut off services in your [...] Description 11/11/2024 8:30 AM EDT Hospital Encounter [facility] Main Operating Room [address] [place] [address] Last Mcmanus MD [address] [place] [address] [place] [address] 11/11/2024 8:30 AM EDT - 11/11/2024 10:00 AM EDT Surgery [facility] Main Operating Room [address] [place] [address] Last Mcmanus MD [address] [place] [address] [place] [address] TURBT (TRANSURETHRAL RESECTION OF BLADDER TUMOR) [30736 (CPT )] Scheduled Procedures Name Priority Associated Diagnoses Date/Ti me TURBT (TRANSURETHRAL RESECTION OF BLADDER TUMOR) Malignant neoplasm of urinary bladder, unspecified site (CMS/HCC) 11/11/2024 8:30 AM EDT documented as of this encounter Procedures Procedure Name Priority Date/Time Associated Diagnosis Comments CARDIAC DEVICE CHECK - REMOTE ALERT - ICD Routine 10/18/2024 12:00 AM EDT documented in this encounter Results * Cardiac device check - Remote alert ICD (10/18/2024 12:00 AM EDT) Anatomical Region Laterality Modality Other 10/18/2024 Fabricio Galindo MD CV IMPLANTABLE CARDIAC DEVICE PROCEDURES Final Result documented in this encounter Visit Diagnoses Not on filedocumented in this encounter Care Teams Clean Out Driller Helper Relationship Specialty Start Date End Date Harley Goodman DO [address] [place] [address] PCP - General 03/02/22 documented as of this encounter
--- OUTSIDE RECORDS SUMMARY | 2024-10-26 08:14 | XMS_ITS | Encounter Summary ---
Author Organization [facility] Address [address] [place] [address] Care Team Providers Care Automobile Club Information Clerk Name Role Phone Harley Goodman DO Primary Care Provider [phone] Encounter Details Date Type Department Care Team (Late st Contact Info) Description 09/11/2024 Orders Only [facility] [address] [place] [address] Kevin Jacobs MD [address] [place] [address] Social History Tobacco Use Types Packs/Day Years Used Date Smoking Tobacco: Former Cigarettes Smokeless Tobacco: Never Alcohol Use Standard Drinks/Week Comments Never 0 (1 standard drink = 0.6 oz pur e alcohol) [facility] Utilities Answer Date Recorded In the past 12 months has e [employer], gas, oil, or water [employer] threatened to shut off services [...] time in the past 12 m [facility], were you homeless or living in a group home (including now)? No 08/13/2024 Hunger Vital [...] 11/11/2024 8:30 AM EDT Hospital Encounter [facility] Main Operating Room [address] [place] [address] Last Mcmanus MD [address] [place] [address] [place] [address] 11/11/2024 8:30 AM EDT - 11/11/2024 10:00 AM EDT Surgery [facility] Main Operating Room [address] [place] [address] Last Mcmanus MD [address] [place] [address] [place] [address] TURBT (TRANSURETHRAL RESECTION OF BLADDER TUMOR) [61989 (CPT )] Scheduled Procedures Name Priority Associated Diagnoses Date/Ti me TURBT (TRANSURETHRAL RESECTION OF BLADDER TUMOR) Malignant neoplasm of urinary bladder, unspecified site (CMS/HCC) 11/11/2024 8:30 AM EDT documented as of this encounter Procedures Procedure Name Priority Date/Time Associated Diagnosis Comments CARDIAC DEVICE CHECK - REMOTE - ICD Routine 09/11/2024 12:00 AM EDT documented in this encounter Results * Cardiac device check - Remote ICD (09/11/2024 12:00 AM EDT) Anatomical Region Laterality Modality Other 09/11/2024 Kevin Jacobs MD CV IMPLANTABLE CARDIAC DEVICE DC OCEDURES Final Result documented in this encounter Visit Diagnoses Not on filedocumented in this encounter Care Teams Automobile Club Information Clerk Relationship Specialty Start Date End Date Harley [place] DO [address] [place] [address] PCP - General 03/02/22 documented as of this encounter
--- OUTSIDE RECORDS SUMMARY | 2024-10-26 08:14 | XMS_ITS | Encounter Summary ---
Author Organization [facility] Address [address] [place] [address] Care Team Providers Care Group Cio Name Role Phone Harley Goodman DO Primary Care Provider [phone] Reason for Visit * Reason Comments Med Refill Encounter Details Date Type Department Care Team (Late st Contact Info) Description 10/15/2024 Refill [facility] [address] [place] [address] Kevin Jacobs MD [address] [place] [phone] NSTEMI (non-ST elevated myocardial infarction) (CMS/HCC) (Primary Dx) Social History Tobacco Use Types Packs/Day Years Used Date Smoking Tobacco: Former Cigarettes Smokeless Tobacco: Never Alcohol Use Standard Drinks/Week Comments Never 0 (1 standard drink = 0.6 oz pur e alcohol) [facility] Utilities Answer Date Recorded In the past 12 months has [employer], gas, oil, or water [employer] threatened to shut off services in your [...] homeless or living in a jail (including now)? No 08/13/2024 Hunger Vital Sign [...] Description 11/11/2024 8:30 AM EDT Hospital Encounter [facility] Main Operating Room [address] [place] [address] Last Mcmanus MD [address] [place] [address] [place] [address] 11/11/2024 8:30 AM EDT - 11/11/2024 10:00 AM EDT Surgery [facility] Main Operating Room [address] [place] [address] Last Mcmanus MD [address] [place] [address] [place] [address] TURBT (TRANSURETHRAL RESECTION OF BLADDER TUMOR) [74374 (CPT )] Scheduled Procedures Name Priority Associated Diagnoses Date/Ti me TURBT (TRANSURETHRAL RESECTION OF BLADDER TUMOR) Malignant neoplasm of urinary bladder, unspecified site (CMS/HCC) 11/11/2024 8:30 AM EDT documented as of this encounter Visit Diagnoses Diagnosis Bladder cancer (CMS/HCC)- Primary Malignant neoplasm of bladder, part unspecified NSTEMI (non-ST elevated myocardial infarction) (CMS/HCC)- Primary Acute myocardial infarction, subendocardial infarction, episode of care unspecified Malignant neoplasm of urinary bladder, unspecified site (CMS/HCC) documented in this encounter Care Teams Group Cio Relationship Specialty Start Date End Date Harley Goodman DO [address] [place] [address] PCP - General 03/02/22 documented as of this encounter
--- OUTSIDE RECORDS SUMMARY | 2024-10-26 08:14 | XMS_ITS | Encounter Summary ---
Author Organization [facility] Address [address] [place] [address] Phone Care Team Providers Care Reservoir Caretaker Name Role Phone Unavailable Primary Care Provider Unavailabl e Encounter Details Date Type Department Care Team (Late st Contact Info) Description 01/16/2022 Orders Only [facility] [address] [place] [address] Conversion, Onbase Social History Tobacco Use Types [...]
--- OUTSIDE RECORDS SUMMARY | 2024-10-26 08:14 | XMS_ITS | Encounter Summary ---
Author Organization [facility] Address [address] [place] [place] [address] Care Team Providers Care Access Spec Name Role Phone Harley Goodman DO Primary Care Provider [phone] Encounter Details Date Type Department Care Team (Late st Contact Info) Description 10/16/2024 Telephone [facility] Urology [address] [place] [address] Trice Rodrigez MA Social History Tobacco Use Types Packs/Day Years Used Date Smoking Tobacco: Former Cigarettes Smokeless Tobacco: Never Alcohol Use Standard Drinks/Week Comments Never 0 (1 standard drink = 0.6 oz pur e alcohol) [facility] Utilities Answer Date Recorded In the past 12 months has e electric, gas, oil, or water [employer] threatened to shut off services in your [...] time in the past 12 m [facility], were you homeless or living in a residential (including now)? No 08/13/2024 Hunger Vital Sign [...] encounter Miscellaneous Notes * Telephone Encounter - Trice Rodrigez MA - 10/16/2024 1:10 PM EDT Pt needs to cancel his surgery for 11/11/24 due to an infection and needs to take care of that first. Pt will call back when he is ready to reschedule. documented in this encounter Plan of Treatment Upcoming Encounters Date Type Department Care Team (Latest Contact Info) Description 11/11/2024 8:30 AM EDT Hospital Encounter [facility] Main Operating Room [address] [place] [address] Last Mcmanus MD [address] [place] [address] [place] [phone] 11/11/2024 8:30 AM EDT - 11/11/2024 10:00 AM EDT Surgery [facility] Main Operating Room [address] [place] [address] Last Mcmanus MD [address] [place] [address] [place] [id number] TURBT (TRANSURETHRAL RESECTION OF BLADDER TUMOR) [07259 (CPT )] Scheduled Procedures Name Priority Associated Diagnoses Date/Ti me TURBT (TRANSURETHRAL RESECTION OF BLADDER TUMOR) Malignant neoplasm of urinary bladder, unspecified site (CMS/HCC) 11/11/2024 8:30 AM EDT documented as of this encounter Visit Diagnoses Not on filedocumented in this encounter Care Teams Access Spec Relationship Specialty Start Date End Date Harley Goodman DO [address] [facility] [place] [address] PCP - General 03/02/22 documented as of this encounter
--- OUTSIDE RECORDS SUMMARY | 2024-10-26 08:14 | XMS_ITS | Encounter Summary ---
Author Organization [facility] Address [address] [place] [address] Care Team Providers Care Landscaping Crew Leader Name Role Phone Harley Goodman DO Primary Care Provider [phone] Encounter Details Date Type Department Care Team (Late st Contact Info) Description 09/16/2024 Orders Only [facility] Card[facility] Clinic [address] [place] [address] Fabricio Galindo MD [address] [place] [address] Social History Tobacco Use Types Packs/Day Years Used Date Smoking Tobacco: Former Cigarettes Smokeless Tobacco: Never Alcohol Use Standard Drinks/Week Comments Never 0 (1 standard drink = 0.6 oz pur e alcohol) [facility] Utilities Answer Date Recorded In the past 12 months has e [employer], gas, oil, or water [employer] threatened to shut off services in your [...] in the past 12 m [facility], were you homeless or living [...] Description 11/11/2024 8:30 AM EDT Hospital Encounter [facility] Main Operating Room [address] [place] [address] Last Mcmanus MD [address] [place] [address] [place] [address] 11/11/2024 8:30 AM EDT - 11/11/2024 10:00 AM EDT Surgery [facility] Main Operating Room [address] [place] [address] Last Mcmanus MD [address] [place] [address] [place] [address] TURBT (TRANSURETHRAL RESECTION OF BLADDER TUMOR) [32617 (CPT )] Scheduled Procedures Name Priority Associated Diagnoses Date/Ti me TURBT (TRANSURETHRAL RESECTION OF BLADDER TUMOR) Malignant neoplasm of urinary bladder, unspecified site (CMS/HCC) 11/11/2024 8:30 AM EDT documented as of this encounter Procedures Procedure Name Priority Date/Time Associated Diagnosis Comments CARDIAC DEVICE CHECK - REMOTE - ICD Routine 09/16/2024 12:00 AM EDT documented in this encounter Results * Cardiac device check - Remote ICD (09/16/2024 12:00 AM EDT) Anatomical Region Laterality Modality Other 09/16/2024 us Wiliamr Gary Galindo MD CV IMPLANTABLE CARDIAC DEVICE PROCEDURES Final Result documented in this encounter Visit Diagnoses Not on filedocumented in this encounter Care Teams Landscaping Crew Leader Relationship Specialty Start Date End Date Harley Goodman DO [address] [place] [address] PCP - General 03/02/22 documented as of this encounter
--- OUTSIDE RECORDS SUMMARY | 2024-10-26 08:14 | XMS_ITS | Encounter Summary ---
Author Organization [facility] Address [address] [place] [address] Care Team Providers Care Research/Program Director Name Role Phone Harley Goodman DO Primary Care Provider [phone] Reason for Visit * Reason Comments Med Refill Encounter Details Date Type Department Care Team (Late st Contact Info) Description 10/16/2024 Refill [facility] [address] [place] [address] Pinky Bishop MD [address] [facility] [place] [address] Chest pain, unspecified type (Primary Dx) Social History Tobacco Use Types Packs/Day Years Used Date Smoking Tobacco: Former Cigarettes Smokeless Tobacco: Never Alcohol Use Standard Drinks/Week Comments Never 0 (1 standard drink = 0.6 oz pur e alcohol) [facility] Utilities Answer Date Recorded In the past 12 months has e [employer], gas, oil, or water [employer] threatened to shut off services in your [...] any time in the past 12 m [facility], were you homeless or living in [...] HOSPITAL Main Operating Room [address] [place] [address] Last Mcmanus MD [address] [place] [address] [place] [address] 11/11/2024 8:30 AM EDT - 11/11/2024 10:00 AM EDT Surgery [facility] Main Operating Room [address] [place] [address] Last Mcmanus MD [address] [place] [address] [place] [address] TURBT (TRANSURETHRAL RESECTION OF BLADDER TUMOR) [06573 (CPT )] Scheduled Procedures Name Priority Associated Diagnoses Date/Ti me TURBT (TRANSURETHRAL RESECTION OF BLADDER TUMOR) Malignant neoplasm of urinary bladder, unspecified site (CMS/HCC) 11/11/2024 8:30 AM EDT documented as of this encounter Visit Diagnoses Diagnosis Bladder cancer (CMS/HCC)- Primary Malignant neoplasm of bladder, part unspecified Chest pain, unspecified type- Primary Malignant neoplasm of urinary bladder, unspecified site (CMS/HCC) documented in this encounter Care Teams Research/Program Director Relationship Specialty Start Date End Date Harley Goodman DO [address] [place] [address] PCP - General 03/02/22 documented as of this encounter
--- OUTSIDE RECORDS SUMMARY | 2024-10-26 08:14 | XMS_ITS | Encounter Summary ---
Author Organization [facility] Address [address] [place] [address] Care Team Providers Care [employer] Wms Consultant Name Role Phone Harley Goodman DO Primary Care Provider [phone] Encounter Details Date Type Department Care Team (Late st Contact Info) Description 08/07/2024 Orders Only [facility] Cardiology Clinic [address] [place] [address] Fabricio Galindo MD [address] [place] [address] Social History Tobacco Use Types Packs/Day Years Used Date Smoking Tobacco: Former Cigarettes Smokeless Tobacco: Never Alcohol Use Standard Drinks/Week Comments Never 0 (1 standard drink = 0.6 oz pur e alcohol) [facility] Utilities Answer Date Recorded In the past 12 months has e [employer], gas, oil, or water [employer] threatened to shut off services in your [...] living in a long-term (including now)? No 02/13/2024 Hunger Vital Sign [...] Description 11/11/2024 8:30 AM EDT Hospital Encounter [facility] Main Operating Room [address] [place] [address] Last Mcmanus MD [address] [place] [address] [place] [phone] 11/11/2024 8:30 AM EDT - 11/11/2024 10:00 AM EDT Surgery [facility] Main Operating Room [address] [place] [address] Last Mcmanus MD [address] [place] [address] [place] [address] TURBT (TRANSURETHRAL RESECTION OF BLADDER TUMOR) [96536 (CPT )] Scheduled Procedures Name Priority Associated Diagnoses Date/Ti me TURBT (TRANSURETHRAL RESECTION OF BLADDER TUMOR) Malignant neoplasm of urinary bladder, unspecified site ([facility]/HCC) 11/11/2024 8:30 AM EDT documented as of this encounter Procedures Procedure Name Priority Date/Time Associated Diagnosis Comments CARDIAC DEVICE CHECK - REMOTE ALERT - ICD Routine 08/07/2024 12:00 AM EDT documented in this encounter Results * Cardiac device check - Remote alert ICD (08/07/2024 12:00 AM EDT) Anatomical Region Laterality Modality Other 08/07/2024 Fabricio Galindo MD CV IMPLANTABLE CARDIAC DEVICE PROCEDURES Final Result documented in this encounter Visit Diagnoses Not on filedocumented in this encounter Care Teams [employer] Wms Consultant Relationship Specialty Start Date End Date Harley Goodman DO [address] [place] [phone] PCP - General 03/02/22 documented as of this encounter
--- OUTSIDE RECORDS SUMMARY | 2024-10-26 08:14 | XMS_ITS | Clinical Summary ---
Author Organization [facility] Address [address] [place] [address] Phone Care Team Providers Care Cabin Outfitter Name Role Phone Unavailable Primary Care Provider [...]
--- OUTSIDE RECORDS SUMMARY | 2024-10-26 08:14 | XMS_ITS | Encounter Summary ---
Author Organization [facility] Address [facility] [place] [id number] Care Team Providers Care Study Manager Name Role Phone Harley Goodman DO Primary Care Provider [phone] Source Comments In the event this information is protected by the Federal Confidentiality of Alcohol and Drug AbusePatient Records regulations: The Federal rules restrict any use of the information to criminally investigate or prosecute any alcohol or drug abuse patient.[facility] Encounter Details Date Type Department [...] on filedocumented in this encounter Care Teams Study Manager Relationship Specialty Start Date End Date Harley Goodman DO [address] [facility] [place] [id number] PCP - General Internal Medicine 07/18/18 documented as of this encounter
[2024-10-26 08:47] LABS: Hematocrit 40.1 % (42.0-54.0); Hemoglobin 12.6 g/dL (14.0-18.0); Immature Granulocytes Abs Auto 0.08 10^3/uL (0.00-0.03); Immature Granulocytes Pct Auto 0.7 % (0.0-0.5); Lymphocytes Absolute Auto 1.6 10^3/uL (1.2-3.8); Mean Corpuscular HGB Conc 31.4 g/dL (29.9-35.2); Mean Corpuscular Hemoglobin 29.6 pg (25.9-34.0); Mean Corpuscular Volume 94.4 fL (80.0-94.0); Platelet Count 332 10^3/uL (150-450); Red Blood Count 4.25 10^6/uL (4.70-6.10); White Blood Count 11.0 10^3/uL (4.0-11.0)
[2024-10-26 08:54] LABS: INR 1.06; Partial Thromboplastin Time 26.5 sec (22.3-36.2); Prothrombin Time 11.2 sec (9.0-11.6)
[2024-10-26 09:09] LABS: Alanine Aminotransferase 46 U/L (16-63); Albumin Globulin Ratio 0.8; Albumin Level 3.6 g/dL (3.4-5.0); Alkaline Phosphatase 180 U/L (46-116); Anion Gap 13.7; Aspartate Amino Transferase 26 U/L (15-37); Blood Urea Nitrogen 30.0 mg/dL (7.0-18.0); Calcium 9.2 mg/dL (8.5-10.1); Carbon Dioxide 28.7 mmol/L (21.0-32.0); Chloride 105 mmol/L (98-107); Estimated GFR (African America 34 (>=60 mL/min/1.73m^2); Estimated GFR (Non-African Ame 28 (>=60 mL/min/1.73m^2); Globulin 4.3 g/dL; Glucose 200 mg/dL (74-106); Potassium 4.4 mmol/L (3.5-5.1); Sodium 143 mmol/L (136-145); Total Protein 7.9 g/dL (6.4-8.2)
== END 2024-10-26 08:07 | disposition home or self-care (01) ==
LOC: LAB 08:10
PROVIDERS: PCP Internal Medicine; Visit Provider Urology
DX: N32.89 Other specified disorders of bladder (principal); N39.0 Urinary tract infection, site not specified
CPT/HCPCS: 36415; 80053; 85610; 85730; 87086

== ENCOUNTER 2024-11-09 08:27 | Outpatient (OUT) | payer MEDICARE, OTHER, SELFPAY ==
[2024-11-09 09:10] LABS: Hematocrit 39.8 % (42.0-54.0); Hemoglobin 12.7 g/dL (14.0-18.0); Mean Corpuscular HGB Conc 31.9 g/dL (29.9-35.2); Mean Corpuscular Hemoglobin 29.4 pg (25.9-34.0); Mean Corpuscular Volume 92.1 fL (80.0-94.0); Platelet Count 219 10^3/uL (150-450); Red Blood Count 4.32 10^6/uL (4.70-6.10); White Blood Count 8.8 10^3/uL (4.0-11.0)
[2024-11-09 09:13] LABS: Albumin Level 3.8 g/dL (3.4-5.0); Anion Gap 14.0; Blood Urea Nitrogen 27.0 mg/dL (7.0-18.0); Calcium 9.2 mg/dL (8.5-10.1); Carbon Dioxide 25.9 mmol/L (21.0-32.0); Chloride 108 mmol/L (98-107); Estimated GFR (African America 41 (>=60 mL/min/1.73m^2); Estimated GFR (Non-African Ame 34 (>=60 mL/min/1.73m^2); Glucose 146 mg/dL (74-106); Magnesium 1.9 mg/dL (1.8-2.4); Potassium 3.9 mmol/L (3.5-5.1); Sodium 144 mmol/L (136-145); Uric Acid 3.9 mg/dL (3.5-7.2)
[2024-11-09 09:14] LABS: Glucose Urine UA >=1000 mg/dL (NEGATIVE)
[2024-11-09 09:56] LABS: Protein Creatinine Ratio Urine 2.52; Total Protein Urine Random 136.5 mg/dL (<=11.9)
[2024-11-09 10:00] LABS: Cast Seen? NONE SEEN #/LPF (NONE SEEN); Crystals Seen? None Seen #/HPF (None Seen)
== END 2024-11-09 08:28 | disposition home or self-care (01) ==
LOC: LAB 08:29
PROVIDERS: PCP Internal Medicine; Visit Provider Internal Medicine
DX: R31.0 Gross hematuria (principal); E87.5 Hyperkalemia; N25.81 Secondary hyperparathyroidism of renal origin; E11.22 Type 2 diabetes mellitus with diabetic chronic kidney disease; I12.9 Hypertensive chronic kidney disease with stage 1 through stage 4 chronic kidney disease, or unspecified chronic kidney disease; N18.30 Chronic kidney disease, stage 3 unspecified
CPT/HCPCS: 36415; 80069; 81001; 82306; 82570; 83735; 83970; 84156; 84550; 85027

== ENCOUNTER 2024-12-02 08:56 | Outpatient (OUT) | payer MEDICARE, OTHER, SELFPAY ==
--- OUTSIDE RECORDS SUMMARY | 2024-12-01 05:48 | XMS_ITS | Continuity of Care Document ---
Author Organization [facility] Address [address] [place] [address] Phone Care Team Providers Care [employer] Name Role Phone NON STAFF Attending Provider Unavailable Jackson Mcmanus MD Attending Provider [phone] Provider, Outside Attending Provider Unavailable Harley Goodman DO Primary Care Provider [phone] Lyssa Alcantar DO Attending Provider Meghan Elizalde MD Attending Provider [phone] Codi Easley CMA Attending Provider Unavaila ble Harley Goodman DO Attending Provider Leslee Woods Attending Provider [phone] Viky Kwong APRN Attending Provider Care Teams Patient Care Team Team Status: Active Member Role Status Dates Harley Goodman DO Primary Care Provider Active Visit Care Team Team Status: Inactive Member Role Status Dates NON STAFF Attending Provider Active Start: 2024 End: September 21, 2024 Visit Care Team Team Status: Active Member Role Status Dates Jackson Mcmanus MD Attending Provider Active Start: September 21, 2024 Visit Care Team Team Status: Active Member Role Status Dates Outside Provider Attending Provider Active Start : September 26, 2024 Visit Care Team Team Status: Active Member Role Status Dates Harley Goodman DO Primary Care Provider Active Start: October 11, 2024 Lyssa Alcantar DO Attending Provider Active Start: October 11, 2024 Visit Care Team Team Status: Active Member Role Status Dates Harley Goodman DO Primary Care Provider Active Start: October 12, 2024 Meghan Elizalde MD Attending Provider Active Sta rt: October 12, 2024 Visit Care Team Team Status: Active Member Role Status Dates Meghan Elizalde MD Attending Provider Active Sta rt: October 13, 2024 Visit Care Team Team Status: Active Member Role Status Dates Meghan Elizalde MD Attending Provider Active Sta rt: October 14, 2024 Visit Care Team Team Status: Active Member Role Status Dates Codi Easley CMA Attending Provider Active Start: October 15, 2024 Visit Care Team Team Status: Inactive Member Role Status Dates Jackson Mcmanus MD Attending Provider Active Start: October 26, 2024 End: October 26, 2024 Visit Care Team Team Status: Active Member Role Status Dates Harley Goodman DO Primary Care Provider Active Start: October 26, 2024 Jackson Mcmanus MD Attending Provider Active Start: October 26, 2024 Visit Care Team Team Status: Inactive Member Role Status Dates Harley Goodman DO Primary Care Provider Active Start: October 27, 2024 End: October 27, 2024 Harley Goodman DO Attending Provider Active Sta rt: October 27, 2024 End: October 27, 2024 Visit Care Team Team Status: Active Member Role Status Dates Harley Goodman DO Primary Care Provider Active Start: November 09, 2024 Kingsley Woods MD Attending Provider Active Start : November 09, 2024 Visit Care Team Team Status: Inactive Member Role Status Dates Harley Goodman DO Primary Care Provider Active Start: November 10, 2024 End: November 10, 2024 Viky Kwong APRN Attending Provider Active Start: November 10, 2024 End: November 10, 2024 Patient Care Team Team Status: Inactive Member Role Status Dates Harley Goodman DO Primary Care Provider Active Start: December 01, 2024 End: December 01, 2024 Harley Goodman DO Attending Provider Active Sta rt: December 01, 2024 End: December 01, 2024 Chief Complaint and Reason for Visit Chief Complaint Admit Date Unknown September 21, 2024 9:25 am Amb Documentation October 15, 2024 10:1 9am Unknown October 26, 2024 8:18 am TBH f/u October 27, 2024 11:3 1am 3 month- METER November 10, 2024 9: 22am Wellness December 01, 2024 8:48am Reason for Visit Admit Date Anemia October 27, 2024 11:3 1am Chronic HFrEF (heart failure with reduced ejection fraction) October 27, 2024 11:31am Chronic kidney disease October 27, 2024 1 1:31am HTN (hypertension) October 27, 2024 11:3 1am Hypercholesterolemia October 27, 2024 11: 31am Ischemic cardiomyopathy October 27, 2024 11:31am Transitional cell bladder cancer October 272024 11:31am Type 2 diabetes mellitus wit h diabetic peripheral angiopathy without gangrene October 27, 2024 11:31am Type 2 diabetes mellitus with hyperglyce dimple October 27, 2024 11:31am Type 2 diabetes mellitus wit h severe nonproliferative diabetic retinopathy October 27, 2024 11:31am Dietary counseling and surveillance Augu 2024 9:22am HTN (hypertension) November 10, 2024 9: 22am BMI 28.0-28.9,adult November 10, 2024 9: 22am DM2 (diabetes mellitus, type 2) October 302024 9:22am HLD (hyperlipidemia) November 10, 2024 9 :22am Anemia December 01, 2024 8:48am Chronic HFrEF (heart failure with reduced ejection fraction) December 01, 2024 8:48am Chronic kidney disease December 01 8:48am HTN (hypertension) December 01, 2024 8:48am Hypercholesterolemia December 01, 2024 8:48am Ischemic cardiomyopathy December 01 8:48am Medicare annual wellness visit, subseque nt December 01, 2024 8:48am Polyuria December 01, 2024 8:48am Transitional cell bladder cancer Septemb 2024 8:48am Type 2 diabetes mellitus wit h diabetic peripheral angiopathy without gangrene December 01, 2024 8:48am Type 2 diabetes mellitus with hyperglyce dimple December 01, 2024 8:48am Allergies, Adverse Reactions, Alerts Allergen Type Severity Reaction Last Updated Verified Status Comments semaglutide Allergy Moderate Gastrointestina l Upset December 01, 2024 9:01am Yes Active constipation Social History Smoking Status [...] Problems Medical Problem Onset Date Status Comments Medicare annual wellness vis it, subsequent Unknown Active CHRYSTAL (generalized anxiety disorder) Unknown Active Screening [...] Activ e CKD (chronic kidney disease) stage 4, GFR 15-29 ml/min Unknown Active CKD (chronic kidney disease) stage 3, GFR 30-59 ml/min Unknown Active Anemia Unknown Active Atrioventricular block, third degree Unknown [...] 25%, LVH, normal RV size/function - 07/2024,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 Chronic kidney disease Unknown Active Pulmonary nodule Unknown Active CT: 8mm RML nodule - 3CT: 6mm RML nodule - T: 7mm RML nodule - T: 6.5mm RML nodule - 07/2023 Myocardial infarct Unknown Active 12/2022, 9 total in lifetime Gross hematuria Unknown Active Hypertensive chronic kidney disease Unknown Activ e Ground glass opacity present on imaging of lung Unknown Active 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, bilateral Unknown Active Transitional cell bladder cancer Unknown Active Cystoscopy for hematuria - 07/2024,TURBT - 09/2024 GERD (gastroesophageal reflu x disease) [...] times daily August 06, 2023 2:14pm Novem 2023 9:29p m Pen Needle, Diabetic (Bd Ultra-Fine Latoya Pen Needle) 32 gauge x 5/32 needle Active 0 .Route 600 November 21, 2023 12:00a m As directed Use with insulin pen 6 Pantoprazol e 40 mg tablet,angelina yed release (DR/EC) Discont inued 0 .ROUTE .COMPLEX 2023 8:47pm Febru 2024 12:22 pm TAKE 1 TABLET BY MOUTH DAILY ON AN EMPTY STOMACH FOLLOWED BY BREAKFAST 30 MINUTES AFTER FOR 90 DAYS Alprazolam 0.5 mg tablet Discont inued 0.5 MG PO Three times daily as needed for anxiety er 2023 9:29pm August 16, 2024 5:16p m Empaglifloz in 10 mg tablet Active 10 MG PO Daily 2024 5:18pm *star* Complies with drug therapy Isosorbide Mononitrate 60 mg tablet extended release 24 hr Discont inued 0 .ROUTE .COMPLEX 180 2024 5:15pm Febru lee ann 2024 12:22 pm TAKE 1 TABLET BY MOUTH TWICE A DAY FOR 30 DAYS Clopidogrel 75 mg tablet Discont inued 0 .ROUTE .COMPLEX 90 2024 7:29pm Febru lee ann 2024 12:22 pm TAKE 1 TABLET BY MOUTH EVERY DAY Clopidogrel 75 mg tablet Active 75 MG PO Every morning 2024 1:00am TAKE 1 TABLET BY MOUTH EVERY DAY Complies with drug therapy Isosorbide Mononitrate 60 mg tablet extended release 24 hr Active 60 MG PO Every morning 2024 1:00am TAKE 1 TABLET BY MOUTH TWICE A DAY FOR 30 DAYS Complies with drug therapy Pantoprazol e 40 mg tablet,angelina yed release (DR/EC) Active 40 MG PO Every morning 2024 1:00am TAKE 1 TABLET BY MOUTH DAILY ON AN EMPTY STOMACH FOLLOWED BY BREAKFAST 30 MINUTES AFTER FOR 90 DAYS Complies with drug therapy Liraglutide (Victoza 3-Michelet) 0.6 mg/0.1 mL (18 [...] 2024 9:38a m Mupirocin 2 % ointment Discont inued 1 APPLIC TOPICA L Twice daily 20 01July 30, 2024 12:00a m October 27, 2024 11:49 am Alprazolam 0.5 mg tablet Discont inued 0.5 MG PO Three times daily as needed for anxiety 90 August 16, 2024 5:16pm Augus t 2024 11:42 am Levofloxaci n 250 mg tablet Discont inued 0 PO Daily 15 August 27, 2024 12:00a m October 27, 2024 11:47 am 2 tablets PO on day one, followed by 1 tablet daily Alprazolam 0.5 mg tablet Active 0.5 MG PO Three times daily as needed for anxiety 90 November 13, 2024 11:42a m Complies with drug therapy Carvedilol 25 mg Tablet Discont inued 12.5 [...] Every morning June 22, 2020 12:00a m Complies with drug therapy Lovastatin 20 mg Tablet Discont inued 40 [...] tablet Discont inued 40 MG PO Daily 18 01June 24, 2020 12:00a m July 11, 2020 [...] Tablet Discont inued 1 TAB PO Daily Octobe r 2021 12:00a m August 03, 2024 9:41a m Famotidine 40 mg Tablet Discont inued 40 MG PO Twice daily Octobe r 2021 12:00a m Octob er 2021 7:52p m Cyanocobala min (Vitamin B-12) (Vitamin B-12) 1,000 mcg Tablet Discont inued 1000 MCG PO Daily Octobe r 2021 12:00a m June 18, 2023 11:08 am Clopidogrel 75 mg Tablet Discont inued 75 MG PO Daily Octobe r 2021 12:00a m June 18, 2023 4:03p m Loratadine 10 mg Tablet Discont inued 10 MG PO Daily Octobe r 2021 12:00a m Febru lee ann 2024 12:19 pm Insulin Aspart U-100 (Novolog Flexpen U-100 Insulin) 100 unit/mL (3 mL) Insulin Pen Discont inued 1 UNIT SUBCUT Three times daily Octobe r 2021 12:00a m June 18, 2023 11:08 am 5 units at times depending on blood sugar Insulin Detemir U-100 (Levemir Flexpen) 100 unit/mL (3 mL) Insulin Pen Discont inued 1 UNIT SUBCUT Twice daily Octobe r 2021 12:00a m Octob er 2021 6:27p m Carvedilol 25 mg Tablet Discont inued 25 MG PO Twice daily with meals 60 30 Octobe r 2021 12:00a m June 18, 2023 11:01 am Isosorbide Mononitrate 60 mg Tablet Extended Release 24 Hr Discont inued 60 MG PO Twice daily 60 30 Octobe r 2021 12:00a m August 12, 2023 [...] PO Every morning August 03, 2024 9:41am Complies with drug therapy Isosorbide Mononitrate 60 mg tablet extended release 24 hr Discont inued 60 MG PO Twice daily August 12, 2023 8:43am Febru lee ann 2024 5:15p m Clopidogrel 75 mg tablet Discont inued 75 MG PO Daily October 17, 2023 10:06a m Febru lee ann 2024 7:29p m Spironolact one 25 mg tablet Active 25 MG PO Every morning October 17, 2023 12:00a m Complies with drug therapy Metoprolol Succinate 50 mg tablet extended release 24 hr Discont inued 50 MG PO Daily October 17, 2023 12:00a m Octob er 2023 9:36a m Pantoprazol e 40 mg tablet,angelina yed release (DR/EC) Discont inued 40 MG PO Daily October 17, 2023 12:00a m Linda mber 2023 8:47p m flash glucose sensor (FreeStyle Arnaud 2 Sensor) Active .Route Octobe r 2023 12:00a m Empaglifloz in 10 mg tablet Discont inued 10 MG PO Daily Octobe r 2023 10:02a m Octob er 2023 10:05 am *star* Empaglifloz in 10 mg tablet Discont inued 10 MG PO Daily 30 Octobe r 2023 10:04a m Janua ry 2024 5:18p m *star* Ranolazine 500 mg tablet extended release 12 hr Active 500 MG PO Twice daily Novemb er 2023 1:00am Complies with drug therapy Amlodipine 5 mg tablet Discont inued 5 MG PO Daily August 25, 2024 12:00a m October 27, 2024 11:49 am Amlodipine 5 mg tablet Active 0.25 MG PO Daily October 27, 2024 11:46a m Complies with drug therapy Semaglutide 1 mg/dose (4 mg/3 mL) pen [...] at bedtime June 18, 2023 12:00a m Complies with drug therapy Docusate Sodium 100 mg capsule Discont inued [...] chest pain June 18, 2023 12:00a m Complies with drug therapy Insulin Detemir U-100 (Levemir Flexpen) 100 unit/mL [...] MG PO Daily Octobe r 2023 9:33am ry 2024 10:48 am Metoprolol Succinate 100 mg tablet extended release 24 hr Discont inued 150 MG PO Every morning 2024 10:46a m August 03, 2024 9:41a m Metoprolol Succinate 100 mg tablet extended release 24 hr Active 100 MG PO Every morning August 03, 2024 9:40am Complies with drug therapy Lisinopril 2.5 mg tablet Discont inued 2.5 MG PO Twice daily July 02, 2023 12:00a m [facility] 2023 10:45 am Cholecalcif zayra (Vitamin D3) 25 mcg (1,000 unit) capsule Active 25 MCG PO Every morning July 02, 2023 12:00a m Complies with drug therapy Thiamine Hcl (Vitamin B1) 100 mg tablet Discont inued 100 MG PO Every 48 hours July 02, 2023 12:00a m August 12, 2023 8:46a m Thiamine Hcl (Vitamin B1) 100 mg tablet Active 100 MG PO every other day August 12, 2023 8:45am Complies with drug therapy Metoprolol Succinate 50 mg tablet extended release 24 hr Discont inued 150 MG PO Daily 2024 1:00am 2024 10:48 am Insulin Degludec (Tresiba Flextouch U-100) 100 unit/mL (3 mL) insulin pen Discont inued 14 UNIT SUBCUT Every morning 2024 1:00am August 03, 2024 9:41a m Metoprolol Succinate 50 mg tablet extended release 24 hr Discont inued 50 MG PO Daily 2024 10:47a m Febru 2024 12:19 pm Liraglutide (Victoza 3-Michelet) 0.6 mg/0.1 mL (18 mg/3 mL) pen injector Discont inued 0 SUBCUT .COMPLEX 2024 1:00am Febr2024 12:22 pm inject 0.6mg subcutaneousl y once daily x 7 days; then 1.2mg daily, not to exceed 1.8mg/day subcut Insulin Degludec (Tresiba Flextouch U-100) 100 unit/mL (3 mL) insulin pen Active 16 UNIT SUBCUT Every morning August 03, 2024 9:38am Complies with drug therapy Metoprolol Succinate 50 mg tablet extended release 24 hr Active 50 MG PO daily August 03, 2024 12:00a m Complies with drug therapy Lisinopril 2.5 mg tablet Discont inued 2.5 MG PO Twice daily August 03, 2024 12:00a m October 27, 2024 11:48 am Liraglutide (Victoza 3-Michelet) 0.6 mg/0.1 mL (18 mg/3 mL) pen injector Discont inued 1.8 MG SUBCUT Daily August 03, 2024 12:00a m October 27, 2024 11:48 am star * Insulin Aspart U-100 (Novolog Flexpen U-100 Insulin) 100 unit/mL (3 mL) insulin pen Active 0 SUBCUT .COMPLEX August 03, 2024 10:17a m 8-10-15-18 units according to meal size ac tid. Corrective scale 1:20 ac, tid (HS >200 1/2 dose) Subcutaneous ac, hs; (expect up to 40 units/day) Complies with drug therapy Oxybutynin Chloride 5 mg tablet Discont inued 5 MG PO Three times daily November 10, 2024 12:00a m Linda schumacher 2024 9:11a m Oxybutynin Chloride 5 mg tablet Active 15 MG PO Daily Sept2024 9:10am Complies with drug therapy Immunizations Immunization Event Date Not Given Reason Dose Number Assistant Family [employer] Lot Number Vaccine Information Statement (VIS) Detail Administration Location COVID-19 mRNA Comirnathector (Vignani) May 30, 2020 COVID-19 mRNA, Comirnaty (Vignani) June 21, 2020 COVID-19 mRNA, Comirnaty (Vignani) February 21, 2021 Fluzone TIV High-Dose 65YR+ December 12, 2023 [id number] [facility] Fluzone TIV High-Dose 65YR+ January 16, 2017 [id number] Fluzone TIV High-Dose 65YR+ December 01, 2024 [id number] [facility] Influenza, trivalent January 17, 2018 [id number] Influenza vaccine, quadrivalent, adjuvanted December 15, 2021 [id number] Novel Influenza H1N1 January 27, 2009 [id number] influenza, unspecified formulation December 15, 2021 influenza, unspecified formulation December 13, 2022 Pneumococcal Conjugate Vaccine, 13 valent November 14, 2016 Pneumococcal Polysacc. Vaccine, 23 valent January 17, 2018 Pneumococcal Polysacc. Vaccine, 23 valent April 02, 2016 Quadrivalent Influenza November 30, 2016 Medical Equipment Device Date Implanted Device Details CL STENT DC 2.0 X 15 July 12, 2020 Procedures Procedure Date Performed Status Urine Culture September 21, 2024 completed Urine Culture October 26, 2024 completed Relevant Diagnostic Tests and/or Laboratory Data Laboratory Results Test Collection Date/Time Result Date/Time Result Interpretation Reference Range Result Comment Performing Site Anion Gap September 21, 2024 9:31am September 21, 2024 9:31am 14.5 Activate d Partial Thrombop last Time September 21, 2024 9:31am September 21, 2024 9:31am 27.6 sec 22.3-36.2 Prothrom b Time Internat ional Ratio September 21, 2024 9:31am September 21, 2024 9:31am 1.06 DESIRED INR:2.0-3.0 CONDITIONS NOT LISTED BELOW2.5-3. 5 FOR PROSTHETIC HEART VALVE REPLACEMENT 2.5-3.5 RECURRENT THROMBOSIS Basophil s # (Auto) September 21, 2024 9:31am September 21, 2024 9:31am 0.1 10 3/uL 0.0-0.1 Estimate d Average Glucose September 26, 2024 8:30am September 26, 2024 8:30am 166 mg/dL Urine Culture Reflexed October 11, 2024 8:09pm [facility] Iron Saturati on October 11, 2024 8:50pm October 11, 2024 8:50pm 12.1 % Lactic Acid Level October 11, 2024 8:50pm October 11, 2024 8:50pm 1.3 mmol/L 0.4-2.0 B-Type Natriure tic Peptide October 11, 2024 8:50pm October 11, 2024 8:50pm 2625.0 pg/mL Above upper panic limits <=900.0 RESULTS CALLED TO SONNY LUNA RN @BY Chelsey Velazquez [id number] Troponin I High Sensitiv ity October 11, 2024 8:50pm October 11, 2024 8:50pm 18.2 pg/mL 4.0-76.1 CUT-OFF POINTS HAVE BEEN ESTABLISHED BASED ON THE FOURTHUNIVE RSAL DEFINITION OF MYOCARDIAL INFARCTION. THE UPPERREFERE NCE LIMIT (URL) OF TROPONIN, DEFINED THE 99THPERCENT ILE OF cTnI DISTRIBUTIO N IN A REFERENCE POPULATION, HAS BEEN CONFIRMED THE DECISION THRESHOLD FOR MIDIAGNOSIS .99TH PERCENTILE = 76.2 PG/MLNOTE: HIGH-SENSIT IVITY TROPONIN ASSAY IS NOT INTENDED TO BEUSED IN ISOLATION BUT SHOULD BE INTERPRETED IN CONJUNCTION WITH OTHER DIAGNOSTIC AND CLINICAL INFORMATION . Magnesiu m Level October 11, 2024 8:50pm October 11, 2024 8:50pm 2.2 mg/dL 1.8-2.4 Anion Gap October 11, 2024 8:50pm 16.4 Basophil s # (Auto) October 11, 2024 8:50pm October 11, 2024 8:50pm 0.0 10 3/uL 0.0-0.1 Miscella neous Test October 11, 2024 8:52pm October 11, 2024 8:52pm COMMENT . Test Ordered: [id number] FerritinFer ritin 834 [H ] ng/mL CB Reference Range: 30-400Perfo rmed at: CB - [facility] [address] [place], [place] [id number] Director: Kwaku Park PhD, Phone: [phone] Anion Gap October 12, 2024 5:32am October 12, 2024 5:32am 18.5 Basophil s # (Auto) October 12, 2024 5:32am October 12, 2024 5:32am 0.0 10 3/uL 0.0-0.1 Hematocr it October 13, 2024 5:15am October 13, 2024 5:15am 31.8 % Below low normal 42.0-54.0 Anion Gap October 13, 2024 5:15am October 13, 2024 5:15am 19.3 Anion Gap October 14, 2024 5:53am October 14, 2024 5:53am 15.8 Anion Gap October 26, 2024 8:23am October 26, 2024 8:23am 13.7 Activate d Partial Thrombop last Time October 26, 2024 8:23am October 26, 2024 8:23am 26.5 sec 22.3-36.2 Prothrom b Time Internat ional Ratio October 26, 2024 8:23am October 26, 2024 8:23am 1.06 DESIRED INR:2.0-3.0 CONDITIONS NOT LISTED BELOW2.5-3. 5 FOR PROSTHETIC HEART VALVE REPLACEMENT 2.5-3.5 RECURRENT THROMBOSIS Basophil s # (Auto) October 26, 2024 8:23am October 26, 2024 8:23am 0.1 10 3/uL 0.0-0.1 Urine Random Creatini ne November 09, 2024 8:35am November 09, 2024 8:35am 54.14 mg/dL 20.00-300. 00 Urine Other Casts November 09, 2024 8:35am NONE SEEN #/LPF NONE SEEN Magnesiu m Level November 09, 2024 8:42am November 09, 2024 8:42am 1.9 mg/dL 1.8-2.4 Uric Acid November 09, 2024 8:42am November 09, 2024 8:42am 3.9 mg/dL 3.5-7.2 Anion Gap November 09, 2024 8:42am November 09, 2024 8:42am 14.0 Hematocr it November 09, 2024 8:42am November 09, 2024 8:42am 39.8 % Below low normal 42.0-54.0 25-Lorman xy Vitamin D Total November 09, 2024 8:42am November 09, 2024 8:42am 41.1 ng/mL <20 ng/mL Vit D [id number] -<30 ng/mL Vit D insufficien t30-100 ng/mL Vit D sufficient> 100 ng/mL Potential Toxicity Parathyr oid Hormone (Intact) November 09, 2024 8:42am November 09, 2024 8:42am 37 pg/mL 15-65 Performed at: [facility] [address] [id number] Director: Kwaku Park PhD, Phone: [phone] Bedside Hemoglob in A1c November 10, 2024 9:36am November 10, 2024 9:53am 7.1 % Bedside Glucose November 10, 2024 9:53am November 10, 2024 9:53am 127 Albumin/ Globulin Ratio September 21, 2024 9:31am September 21, 2024 9:31am 1.0 Prothrom bin Time September 21, 2024 9:31am September 21, 2024 9:31am 11.2 sec 9.0-11.6 Basophil s (%) (Auto) September 21, 2024 9:31am September 21, 2024 9:31am 0.6 % 0.2-2.0 Hemoglob in A1c September 26, 2024 8:30am September 26, 2024 8:30am 7.4 % Above high normal 4.5-6.2 ADA RECOMMENDED LIMIT 4.0 - 6.0ADA THERAPEUTIC TARGET < 7.0ACTION SUGGESTED> 7.0 Urine Other [...] October 12, 2024 5:32am 0.2 % 0.2-2.0 Hemoglob in October 13, 2024 5:15am October 13, 2024 5:15am 10.6 g/dL Below low normal 14.0-18.0 BUN/Crea tinine Ratio October 13, 2024 5:15am October 13, 2024 5:15am 15.7 BUN/Crea tinine Ratio October 14, 2024 5:53am October 14, 2024 5:53am 13.7 Albumin/ Globulin Ratio October 26, 2024 8:23am October 26, 2024 8:23am 0.8 Prothrom bin Time October 26, 2024 8:23am October 26, 2024 8:23am 11.2 sec 9.0-11.6 Basophil s (%) (Auto) October 26, 2024 8:23am October 26, 2024 8:23am 0.7 % 0.2-2.0 Urine Protein/ Creatini ne Ratio November 09, 2024 8:35am November 09, 2024 8:35am 2.52 Urine Other Crystals November 09, 2024 8:35am None Seen #/HPF None Seen Albumin November 09, 2024 8:42am November 09, 2024 8:42am 3.8 g/dL 3.4-5.0 Hemoglob in November 09, 2024 8:42am November 09, 2024 8:42am 12.7 g/dL Below low normal 14.0-18.0 Albumin September 21, 2024 9:31am September 21, [...] 12, 2024 5:32am 0.0 10 3/uL 0.0-0.7 Mean Corpuscu lar Hemoglob in October 13, 2024 5:15am October 13, 2024 5:15am 29.4 pg 25.9-34.0 Blood Urea Nitrogen October 13, 2024 5:15am October 13, 2024 5:15am 36.0 mg/dL Above high normal 7.0-18.0 Blood Urea Nitrogen October 14, 2024 5:53am October 14, 2024 5:53am 27.0 mg/dL Above high normal 7.0-18.0 Albumin October 26, 2024 8:23am October 26, 2024 8:23am 3.6 g/dL 3.4-5.0 Eosinoph ils # (Auto) October 26, 2024 8:23am October 26, 2024 8:23am 0.2 10 3/uL 0.0-0.7 Urine Random Total Protein November 09, 2024 8:35am November 09, 2024 8:35am 136.5 mg/dL Above high normal <=11.9 Urine Bacteria November 09, 2024 8:35am SMALL #/HPF Abnormal (applies to non-numeric results) NONE SEEN BUN/Crea tinine Ratio November 09, 2024 8:42am November 09, 2024 8:42am 13.8 Mean Corpuscu lar Hemoglob in November 09, 2024 8:42am November 09, 2024 8:42am 29.4 pg 25.9-34.0 Alkaline Phosphat ase September 21, 2024 9:31am [...] 5:32am 0.2 % Below low normal 0.9-7.0 Mean Corpuscu lar Hemoglob in [facility] October 13, 2024 5:15am October 13, 2024 5:15am 33.3 g/dL 29.9-35.2 Calcium Level October 13, 2024 5:15am October 13, 2024 5:15am 8.7 mg/dL 8.5-10.1 Calcium Level October 14, 2024 5:53am October 14, 2024 5:53am 8.7 mg/dL 8.5-10.1 Alkaline Phosphat ase October 26, 2024 8:23am October 26, 2024 8:23am 180 U/L Above high normal 46-116 Eosinoph ils (%) (Auto) October 26, 2024 8:23am October 26, 2024 8:23am 2.0 % 0.9-7.0 Urine Bilirubi n November 09, 2024 8:35am NEGATIVE NEGATIVE Blood Urea Nitrogen November 09, 2024 8:42am November 09, 2024 8:42am 27.0 mg/dL Above high normal 7.0-18.0 Mean Corpuscu lar Hemoglob in Concent November 09, 2024 8:42am November 09, 2024 8:42am 31.9 g/dL 29.9-35.2 Alanine Aminotra nsferase (ALT/SGP T) September 21, 2024 9:31am September 21, 2024 9:31am 25 U/L -63 Hematocr it September 21, 2024 9:31am September 21, 2024 9:31am 41.0 % Below low normal 42.0-54.0 Urine Bacteria October 11, 2024 8:09pm MODERATE #/HPF Abnormal (applies to non-numeric results) NONE SEEN Alanine Aminotra nsferase (ALT/SGP T) October 11, 2024 8:50pm 26 U/L -63 Hematocr it October 11, 2024 8:50pm October 11, 2024 8:50pm 36.7 % Below low normal 42.0-54.0 Alanine Aminotra nsferase (ALT/SGP T) October 12, 2024 5:32am October 12, 2024 5:32am 21 U/L 63 Hematocr it October 12, 2024 5:32am October 12, 2024 5:32am 31.8 % Below low normal 42.0-54.0 Mean Corpuscu lar Volume October 13, 2024 5:15am October 13, 2024 5:15am 88.1 fL 80.0-94.0 Chloride Level October 13, 2024 5:15am October 13, 2024 5:15am 108 mmol/L Above high normal 98-107 Chloride Level October 14, 2024 5:53am October 14, 2024 5:53am 110 mmol/L Above high normal 98-107 Alanine Aminotra nsferase (ALT/SGP T) October 26, 2024 8:23am October 26, 2024 8:23am 46 U/L -63 Hematocr it October 26, 2024 8:23am October 26, 2024 8:23am 40.1 % Below low normal 42.0-54.0 Urine Occult Blood November 09, 2024 8:35am LARGE Abnormal (applies to non-numeric results) NEGATIVE Calcium Level November 09, 2024 8:42am November 09, 2024 8:42am 9.2 mg/dL 8.5-10.1 Mean Corpuscu lar Volume November 09, 2024 8:42am November 09, 2024 8:42am 92.1 fL 80.0-94.0 Aspartat e Amino Transf (AST/SGO T) September [...] 5:32am 10.8 g/dL Below low normal 14.0-18.0 Mean Platelet Volume October 13, 2024 5:15am October 13, 2024 5:15am 9.4 fL Below low normal 9.5-13.5 Carbon Dioxide Level October 13, 2024 5:15am October 13, 2024 5:15am 17.0 mmol/L Below low normal 21.0-32.0 Carbon Dioxide Level October 14, 2024 5:53am October 14, 2024 5:53am 20.6 mmol/L Below low normal 21.0-32.0 Aspartat e Amino Transf (AST/SGO T) October 26, 2024 8:23am October 26, 2024 8:23am 26 U/L 15-37 Hemoglob in October 26, 2024 8:23am October 26, 2024 8:23am 12.6 g/dL Below low normal 14.0-18.0 Urine Appearan ce November 09, 2024 8:35am CLOUDY Abnormal (applies to non-numeric results) CLEAR Chloride Level November 09, 2024 8:42am November 09, 2024 8:42am 108 mmol/L Above high normal 98-107 Mean Platelet Volume November 09, 2024 8:42am November 09, 2024 8:42am 10.0 fL 9.5-13.5 BUN/Crea tinine Ratio September 21, 2024 9:31am [...] 0.04 10 3/uL Above high normal 0.00-0.03 Platelet Count October 13, 2024 5:15am October 13, 2024 5:15am 316 10 3/uL 150-450 Creatini ne October 13, 2024 5:15am October 13, 2024 5:15am 2.30 mg/dL Above high normal 0.70-1.30 Creatini ne October 14, 2024 5:53am October 14, 2024 5:53am 1.97 mg/dL Above high normal 0.70-1.30 BUN/Crea tinine Ratio October 26, 2024 8:23am October 26, 2024 8:23am 13.1 Immature Granuloc yte # (Auto) October 26, 2024 8:23am October 26, 2024 8:23am 0.08 10 3/uL Above high normal 0.00-0.03 Urine Color November 09, 2024 8:35am LT. YELLOW YELLOW Carbon Dioxide Level November 09, 2024 8:42am November 09, 2024 8:42am 25.9 mmol/L 21.0-32.0 Platelet Count November 09, 2024 8:42am November 09, 2024 8:42am 219 10 3/uL 150-450 Blood Urea Nitrogen September 21, 2024 9:31am [...] 5:32am 0.7 % Above high normal 0.0-0.5 Red Blood Count October 13, 2024 5:15am October 13, 2024 5:15am 3.61 10 6/uL Below low normal 4.70-6.10 Estimate d GFR ( ) October 13, 2024 5:15am October 13, 2024 5:15am 34 Below low normal >=60 mL/min/1.7 3m 2 Estimate d GFR ( ) October 14, 2024 5:53am October 14, 2024 5:53am 41 Below low normal >=60 mL/min/1.7 3m 2 Blood Urea Nitrogen October 26, 2024 8:23am October 26, 2024 8:23am 30.0 mg/dL Above high normal 7.0-18.0 Immature Granuloc yte % (Auto) October 26, 2024 8:23am October 26, 2024 8:23am 0.7 % Above high normal 0.0-0.5 Urine Glucose (UA) November 09, 2024 8:35am >=1000 mg/dL Abnormal (applies to non-numeric results) NEGATIVE Creatini ne November 09, 2024 8:42am November 09, 2024 8:42am 1.95 mg/dL Above high normal 0.70-1.30 Red Blood Count November 09, 2024 8:42am November 09, 2024 8:42am 4.32 10 6/uL Below low normal 4.70-6.10 Calcium Level September 21, 2024 9:31am September [...] 0.8 10 3/uL Below low normal 1.2-3.8 Red Cell Distribu tion Width October 13, 2024 5:15am October 13, 2024 5:15am 14.8 % 11.0-15.0 Estimate d GFR (Non-Afr ican German October 13, 2024 5:15am October 13, 2024 5:15am 28 Below low normal >=60 mL/min/1.7 3m 2 Estimate d GFR (Non-Afr ican German October 14, 2024 5:53am October 14, 2024 5:53am 34 Below low normal >=60 mL/min/1.7 3m 2 Calcium Level October 26, 2024 8:23am October 26, 2024 8:23am 9.2 mg/dL 8.5-10.1 Lymphocy bri # (Auto) October 26, 2024 8:23am October 26, 2024 8:23am 1.6 10 3/uL 1.2-3.8 Urine Ketones November 09, 2024 8:35am NEGATIVE mg/dL NEGATIVE Estimate d GFR ( ) November 09, 2024 8:42am November 09, 2024 8:42am 41 Below low normal >=60 mL/min/1.7 3m 2 Red Cell Distribu tion Width November 09, 2024 8:42am November 09, 2024 8:42am 16.2 % Above high normal 11.0-15.0 Chloride Level September 21, 2024 9:31am September [...] 5:32am 15.1 % Below low normal 20.5-60.0 Correcte d White Blood Count October 13, 2024 5:15am October 13, 2024 5:15am 4.9 10 3/uL 4.0-11.0 Glucose Level October 13, 2024 5:15am October 13, 2024 5:15am 167 mg/dL Above high normal 74-106 Glucose Level October 14, 2024 5:53am October 14, 2024 5:53am 160 mg/dL Above high normal 74-106 Chloride Level October 26, 2024 8:23am October 26, 2024 8:23am 105 mmol/L 98-107 Lymphocy bri (%) (Auto) October 26, 2024 8:23am October 26, 2024 8:23am 14.5 % Below low normal 20.5-60.0 Urine Leukocyt e Esterase November 09, 2024 8:35am MODERATE Abnormal (applies to non-numeric results) NEGATIVE Estimate d GFR (Non-Afr ican German November 09, 2024 8:42am November 09, 2024 8:42am 34 Below low normal >=60 mL/min/1.7 3m 2 Correcte d White Blood Count November 09, 2024 8:42am November 09, 2024 8:42am 8.8 10 3/uL 4.0-11.0 Carbon Dioxide Level September 21, 2024 9:31am [...] October 12, 2024 5:32am 30.1 pg 25.9-34.0 [place] m Level October 13, 2024 5:15am October 13, 2024 5:15am 4.3 mmol/L 3.5-5.1 [place] m Level October 14, 2024 5:53am October 14, 2024 5:53am 4.4 mmol/L 3.5-5.1 Carbon Dioxide Level October 26, 2024 8:23am October 26, 2024 8:23am 28.7 mmol/L 21.0-32.0 Mean Corpuscu lar Hemoglob in October 26, 2024 8:23am October 26, 2024 8:23am 29.6 pg 25.9-34.0 Urine Mucus November 09, 2024 8:35am NONE SEEN NONE SEEN Glucose Level November 09, 2024 8:42am November 09, 2024 8:42am 146 mg/dL Above high normal 74-106 Creatini ne September 21, 2024 9:31am September 21, 2024 9:31am 1.95 mg/dL Above high normal 0.70-1.30 Mean Corpuscu lar Hemoglob in [facility] September 21, 2024 9:31am September 21, 2024 9:31am 32.9 g/dL 29.9-35.2 Urine Leukocyt e Esterase October 11, 2024 8:09pm SMALL Abnormal (applies to non-numeric results) NEGATIVE Creatini ne October 11, 2024 8:50pm 3.23 mg/dL Above high normal 0.70-1.30 Mean Corpuscu lar Hemoglob in [facility] October 11, 2024 8:50pm October 11, 2024 8:50pm 33.8 g/dL 29.9-35.2 Creatini ne October 12, 2024 5:32am October 12, 2024 5:32am 2.73 mg/dL Above high normal 0.70-1.30 Mean Corpuscu lar Hemoglob in [facility] October 12, 2024 5:32am October 12, 2024 5:32am 34.0 g/dL 29.9-35.2 Sodium Level October 13, 2024 5:15am October 13, 2024 5:15am 140 mmol/L 136-145 Sodium Level October 14, 2024 5:53am October 14, 2024 5:53am 142 mmol/L 136-145 Creatini ne October 26, 2024 8:23am October 26, 2024 8:23am 2.29 mg/dL Above high normal 0.70-1.30 Mean Corpuscu lar Hemoglob in [place] October 26, 2024 8:23am October 26, 2024 8:23am 31.4 g/dL 29.9-35.2 Urine Nitrite November 09, 2024 8:35am NEGATIVE NEGATIVE [place] Level November 09, 2024 8:42am November 09, 2024 8:42am 3.9 mmol/L 3.5-5.1 Estimate d GFR ( ) September 21, [...] October 12, 2024 5:32am 88.6 fL 80.0-94.0 Estimate d GFR ( ) October 26, 2024 8:23am October 26, 2024 8:23am 34 Below low normal >=60 mL/min/1.7 3m 2 Mean Corpuscu lar Volume October 26, 2024 8:23am October 26, 2024 8:23am 94.4 fL Above high normal 80.0-94.0 Urine pH November 09, 2024 8:35am 6.0 5.0-9.0 Sodium Level November 09, 2024 8:42am [place] 11th, 2025 8:42am 144 mmol/L 136-145 Estimate d GFR (Non-Afr ican German September 21, 2024 9:31am September 21, 2024 9:31am 34 Below low normal >=60 mL/min/1.7 3m 2 Monocyte s # (Auto) September 21, 2024 9:31am September 21, 2024 9:31am 0.7 10 3/uL 0.3-0.8 Urine Nitrite October 11, 2024 8:09pm NEGATIVE NEGATIVE Estimate d GFR (Non-Afr ican German October 11, 2024 8:50pm 19 Below low normal >=60 mL/min/1.7 3m 2 Monocyte s # (Auto) October 11, 2024 8:50pm October 11, 2024 8:50pm 0.8 10 3/uL 0.3-0.8 Estimate d GFR (Non-Afr ican German October 12, 2024 5:32am October 12, 2024 5:32am 23 Below low normal >=60 mL/min/1.7 3m 2 Monocyte s # (Auto) October 12, 2024 5:32am October 12, 2024 5:32am 0.7 10 3/uL 0.3-0.8 Estimate d GFR (Non-Afr ican German October 26, 2024 8:23am October 26, 2024 8:23am 28 Below low normal >=60 mL/min/1.7 3m 2 Monocyte s # (Auto) October 26, 2024 8:23am October 26, 2024 8:23am 1.0 10 3/uL Above high normal 0.3-0.8 Urine Protein November 09, 2024 8:35am 100 mg/dL Abnormal (applies to non-numeric results) NEG/TRACE Phosphor us Level November 09, 2024 8:42am November 09, 2024 8:42am 3.3 mg/dL 2.6-4.7 Globulin September 21, 2024 9:31am September 21, [...] 5:32am 12.7 % Above high normal 1.7-12.0 Globulin October 26, 2024 8:23am October 26, 2024 8:23am 4.3 g/dL Monocyte s (%) (Auto) October 26, 2024 8:23am October 26, 2024 8:23am 8.9 % 1.7-12.0 Urine RBC November 09, 2024 8:35am 2-5 #/HPF Abnormal (applies to non-numeric results) 0-2 Glucose Level September 21, 2024 9:31am September [...] October 12, 2024 5:32am 9.5 fL 9.5-13.5 Glucose Level October 26, 2024 8:23am October 26, 2024 8:23am 200 mg/dL Above high normal 74-106 Mean Platelet Volume October 26, 2024 8:23am October 26, 2024 8:23am 10.0 fL 9.5-13.5 Urine Specific [place] November 09, 2024 8:35am 1.015 1.005-1.02 5 [place] Level September 21, 2024 9:31am [...] 12, 2024 5:32am 3.8 10 3/uL 1.4-6.5 [place] Level October 26, 2024 8:23am October 26, 2024 8:23am 4.4 mmol/L 3.5-5.1 Neutroph ils # (Auto) October 26, 2024 8:23am October 26, 2024 8:23am 8.0 10 3/uL Above high normal 1.4-6.5 Urine Squamous Epitheli al Cells November 09, 2024 8:35am RARE #/LPF NONE/RARE Sodium Level September 21, 2024 9:31am September 21, 2024 9:31am 140 mmol/L 136-145 Neutroph ils (%) (Auto) September 21, 2024 9:31am September 21, 2024 9:31am 67.7 % 43.0-75.0 Urine Specific [place] October 11, 2024 8:09pm 1.025 1.005-1.02 5 Sodium Level October 11, 2024 8:50pm 137 mmol/L 136-145 Neutroph ils (%) (Auto) October 11, 2024 8:50pm October 11, 2024 8:50pm 73.6 % 43.0-75.0 Sodium Level October 12, 2024 5:32am October 12, 2024 5:32am 139 mmol/L 136-145 Neutroph ils (%) (Auto) October 12, 2024 5:32am October 12, 2024 5:32am 71.1 % 43.0-75.0 Sodium Level October 26, 2024 8:23am October 26, 2024 8:23am 143 mmol/L 136-145 Neutroph ils (%) (Auto) October 26, 2024 8:23am October 26, 2024 8:23am 73.2 % 43.0-75.0 Urine Urobilin ogen November 09, 2024 8:35am 0.2 EU/dL 0.2-1.0 Total Bilirubi n September 21, 2024 9:31am [...] 12, 2024 5:32am 242 10 3/uL 150-450 Total Bilirubi n October 26, 2024 8:23am October 26, 2024 8:23am 0.5 mg/dL 0.2-1.0 Platelet Count October 26, 2024 8:23am October 26, 2024 8:23am 332 10 3/uL 150-450 Urine WBC November 09, 2024 8:35am 75-100 #/HPF Abnormal (applies to non-numeric results) NONE SEEN Total Protein September 21, 2024 9:31am September [...] 3.59 10 6/uL Below low normal 4.70-6.10 Total Protein October 26, 2024 8:23am October 26, 2024 8:23am 7.9 g/dL 6.4-8.2 Red Blood Count October 26, 2024 8:23am October 26, 2024 8:23am 4.25 10 6/uL Below low normal 4.70-6.10 Urine Yeast November 09, 2024 8:35am SEEN Abnormal (applies to non-numeric results) NONE SEEN Red Cell Distribu tion Width September 21, 2024 9:31am September 21, 2024 9:31am 14.0 % 11.0-15.0 Urine WBC October 11, 2024 8:09pm 75-100 #/HPF Abnormal (applies to non-numeric results) NONE SEEN Red Cell Distribu tion Width October 11, 2024 8:50pm October 11, 2024 8:50pm 14.6 % 11.0-15.0 Red Cell Distribu tion Width October 12, 2024 5:32am October 12, 2024 5:32am 14.6 % 11.0-15.0 Red Cell Distribu tion Width October 26, 2024 8:23am October 26, 2024 8:23am 16.6 % Above high normal 11.0-15.0 Correcte d White Blood Count September 21, 2024 9:31am September 21, 2024 9:31am 8.5 10 3/uL 4.0-11.0 Correcte d White Blood Count October 11, 2024 8:50pm October 11, 2024 8:50pm 6.9 10 3/uL 4.0-11.0 Correcte d White Blood Count October 12, 2024 5:32am October 12, 2024 5:32am 5.4 10 3/uL 4.0-11.0 Correcte d White Blood Count October 26, 2024 8:23am October 26, 2024 8:23am 11.0 10 3/uL 4.0-11.0 Microbiology Results Procedure Source Result Collection Date/Time Result Date/Time Result Comment Performing Site Urine Culture Urine, Clean-Voided Midstream 2 Days September 21, 2024 9:25am September 23, 2024 12:20pm [facility] [id number] [address] [facility] [id number] Urine Culture Urine, Clean-Voided Midstream 2 Days October 26, 2024 8:18am October 28, 2024 9:15am [facility] [id number] [address] [facility] [address] Vital Signs Vital Reading Result Reference Range Collection Date/Time Height 67 [in_i] October 27, 2024 11:44am Weight 80.90 kg October 27, 2024 11:44am Heart Rate 80 /min 60-100 October 27, 2024 11:44am Respiratory rate 12 /min 12-October 27, 2024 11:44am Oxygen saturation by Pulse oximetry 97 % 95-100 October 27, 2024 11:4 4am BP Systolic 116 mm[Hg] 100-140 October 27, 2024 11:44am BP Diastolic 70 mm[Hg] 60-100 October 27, 2024 11:44am BMI (Body Mass Index) 27.9 kg/m2 September 302024 11:44am Height 67 [in_i] November 10 9:48am Weight 81.30 kg November 10 9:48am Heart Rate 78 /min 60-100 November 10 9:48am Respiratory rate 18 /min 12-October 9:48am Oxygen saturation by Pulse oximetry 97 % 95-100 November 10, 2024 9: 48am BP Systolic 122 mm[Hg] 100-140 November 10 9:48am BP Diastolic 64 mm[Hg] 60-100 November 10 9:48am BMI (Body Mass Index) 28.0 kg/m2 November 10, 2024 9:48am Height 67 [in_i] December 01, 2024 9:12am Weight 78.58 kg December 01, 2024 9:12am Heart Rate 84 /min 60-100 December 01, 2024 9:12am Respiratory rate 12 /min -December 012024 9:12am BP Systolic 115 mm[Hg] 100-140 December 01, 2024 9:12am BP Diastolic 70 mm[Hg] 60-100 December 01, 2024 9:12am BMI (Body Mass Index) 27.1 kg/m2 2024 9:12am Advance Directives Advance Directive Response Recorded Date/ Time Advance Directives No September 19 8:18am Insurance Providers Guarantor Prem Ayoub Address [address] [place] [phone] Contact Info. Home Phone: Payer Policy Id Subscriber's Name Subscriber Id Opal ctive Date Expiration Date MMO [id number] Prem Ayoub [id number] Medicare [id number] Prem Ayoub [id number] Regular Insurance [id number] Prem Ayoub [id number] 2024 Encounters Encounter Location(s) Arrival/Admit Date Discharge/Depart Date Provider(s) Departed Referred -[facility] September 21, 2024 9:25am September 21, 2024 9:26am NON STAFF Non-patient / Non-visit -[facility] September 21, 2024 9:31am Jackson Mcmanus MD Non-patient / Non-visit -[facility] September 26, 2024 8:30am Outside Provider Non-patient / Non-visit -[facility] October 11, 2024 8:09pm Lyssa Alcantar DO Non-patient / Non-visit -[facility] October 12, 2024 5:32am Meghan Elizalde MD Non-patient / Non-visit -[facility] October 13, 2024 5:15am Meghan Elizalde MD Non-patient / Non-visit -[facility] October 14, 2024 5:53am Meghan Elizalde MD Non-patient / Non-visit -[facility] October 15, 2024 10:19am Codi Easley CMA Departed Referred -[facility] October 26, 2024 8:18am October 26, 2024 8:19am Jackson Mcmanus MD Non-patient / Non-visit -[facility] October 26, 2024 8:23am Jackson Mcmanus MD Departed Physician/Prov ider Office Visit -[facility] October 27, 2024 11:31am October 27, 2024 12:13pm Harley Goodman DO Non-patient / Non-visit -[facility] November 09, 2024 8:35am Kingsley Woods MD Departed Physician/Prov ider Office Visit -[facility] November 10, 2024 9:22am November 10, 2024 10:21am JOSE Egan Departed Physician/Prov ider Office Visit -[facility] December 01, 2024 8:48am December 01, 2024 9:47am Harley Goodman DO Recent Diagnosis Onset Date Admit Date Anemia Unknown October 27, 2024 11:31am Chronic HFrEF (heart failure with reduced ejection fraction) Unknown October 27, 2024 11:31am Chronic kidney disease Unknown September 11:31am HTN (hypertension) Unknown October 27 11:31am Hypercholesterolemia Unknown October 27, 2024 11:31am Ischemic cardiomyopathy Unknown September 11:31am Transitional cell bladder cancer Unknown October 27, 2024 11:31am Type 2 diabetes mellitus wit h diabetic peripheral angiopathy without gangrene Unknown October 27, 2024 11:31am Type 2 diabetes mellitus with hyperglycemia Unkn own October 27, 2024 11:31am Type 2 diabetes mellitus wit h severe nonproliferative diabetic retinopathy Unknown October 27, 2024 11:31am Dietary counseling and surveillance Unknown November 10, 2024 9:22am HTN (hypertension) Unknown November 10, 2024 9:22am BMI 28.0-28.9,adult Unknown November 10, 2024 9:22am DM2 (diabetes mellitus, type 2) Unknown November 10, 2024 9:22am HLD (hyperlipidemia) Unknown October 9:22am Anemia Unknown December 01 8:48am Chronic HFrEF (heart failure with reduced ejection fraction) Unknown December 01, 2024 8:48am Chronic kidney disease Unknown December 01, 2024 8:48am HTN (hypertension) Unknown November 8:48am Hypercholesterolemia Unknown December 012024 8:48am Ischemic cardiomyopathy Unknown 2024 8:48am Medicare annual wellness visit, subsequent Unkno wn December 01, 2024 8:48am Polyuria Unknown December 01 8:48am Transitional cell bladder cancer Unknown December 01, 2024 8:48am Type 2 diabetes mellitus wit h diabetic peripheral angiopathy without gangrene Unknown December 01, 2024 8:48am Type 2 diabetes mellitus with hyperglycemia Unkn own December 01, 2024 8:48am Assessments Diagnosis Onset Date Resolution Status Admit Date Anemia acute October 27 11:31am Chronic HFrEF (heart failure with reduced ejection fraction) acute October 27, 2024 11:31am Chronic kidney disease acute Ju ly 2024 11:31am HTN (hypertension) acute September 302024 11:31am Hypercholesterolemia acute October 27, 2024 11:31am Ischemic cardiomyopathy acute J angelita 2024 11:31am Transitional cell bladder cancer acu te October 27, 2024 11:31am Type 2 diabetes mellitus wit h diabetic peripheral angiopathy without gangrene acute October 27, 2024 11:31am Type 2 diabetes mellitus wit h hyperglycemia acute October 27, 2024 11:31am Type 2 diabetes mellitus wit h severe nonproliferative diabetic retinopathy acute October 27, 2024 11:31am Dietary counseling and surveillance acute November 10 9:22am HTN (hypertension) acute November 10, 2024 9:22am BMI 28.0-28.9,adult inactive Augus t 2024 9:22am DM2 (diabetes mellitus, type 2) indio soraya November 10, 2024 9:22am HLD (hyperlipidemia) deleted Augu st 2024 9:22am Anemia acute December 01, 2024 8:48am Chronic HFrEF (heart failure with reduced ejection fraction) acute [id number] 8:48am Chronic kidney disease acute Se [id number] 8:48am HTN (hypertension) acute 2024 8:48am Hypercholesterolemia acute Nov 8:48am Ischemic cardiomyopathy acute S [id number] 8:48am Medicare annual wellness vis it, subsequent acute December 01 8:48am Polyuria acute December 01, 2024 8:48am Transitional cell bladder cancer acu te December 01, 2024 8:48am Type 2 diabetes mellitus wit h diabetic peripheral angiopathy without gangrene acute December 01, 2024 8:48am Type 2 diabetes mellitus wit h hyperglycemia acute December 01 8:48am Plan of Treatment Author [facility] Authored November 10, 2024 10 :30am Type 2 diabetes mellitus Clinical Notes: 1. Uncontrolled, a Type 2 diabetes with A1c of 7.1% 2. Blood glucose levels above target. According to [facility] 2 cgm download 10/28- 11/10/24: AVG SG 168. >250-5%, >180-34%, 70-180-61%, <70-0%, <54-0%. CV 28%. GMI 7.3%. Reviewed download w/ pt, infrequent incidence of hypoglycemia. Glucose above target postprandial. Pt admits if glucose <100 will not take meal dose. Reviewed w/ pt importance of premeal bolus to prevent postprandial hyperglycemia. Also reviewed w/ pt importance if glucose <70 must do fingerstick w/ glucometer to confirm. Discussed compression lows. Continue: Tresiba 16 units sq qam. Novolog 8-10-15-18 units ac according to meal size tid and 4 units ac snack plus corrective scale 1:20 ac tid (hs if >200 half dose). Reviewed with pt how to titrate basal/bolus insulin according to fasting am/meal to meal glucose pattern. Pt verbalizes understanding. jardiance 10mg 1 tab qd * Arnaud 2 cgm pt adherent and benefitting [...] or diabetes medication issues. 6. Prescriptions: [facility]-None at this time. DME: [facility]-None at this time. [facility]- victoza*sent. Patient Assistance: Jerry PAP for Novolog and Tresiba and [facility] * for Jardiance/victoza. Approved for 2024. 7. Prescriptions will not be filled unless you are compliant with follow up appointments or have a follow up appointment scheduled as ordered by your provider. Refills should be requested at the time of your visit. controlled- on triston; managed by pcp 2024 ADA Guidelines- target blood pressure < 130/80, if it can be safely attained. 05/26 ldl 44/trig 171- on statin; managed by cardiology 2024 ADA guidelines- people with Diabetes age 40-75 at higher CV risk including those with one or more additional ASCVD risk factors, high intensity statin therapy recommended to reduce ldl by >50% of baseline and to obtain goal ldl <70 2024 ADA guidelines- people with Diabetes age 40-75 moderate-intensity statin therapy in those without ASCVD risk factors see above see above Author Harley Goodman [facility] Authored December 01, 2024 9:44am This patient is stable witho ut activity [...] Metoprolol, Aldactone and Lisinopril without interruption I instructed this patient on [...] Secondary to diabetic nephropathy and HTN nephroclerosis I have instructed this patient to follow [...] Amlodipine, Lisinopril and Metoprolol without interruption I have instructed this patient on a low fat, high fiber diet and exercise. I have discussed the primary and secondary prevention benefits attributed to lowering LDL cholesterol. I have also discussed the medical treatment of elevated cholesterol, which is based on the 10 year ASCVD risk. Continue Rosuvastatin without interruption TURBT - 09/29 w/o complications - orellana catheter removed on 10/05 Admitted to [facility] w/ pyelonephritis Treatment w/ broad spectrum antibiotics w/ minimal improvement - dysuria, polyuria and urgency continue Secondary to CKD and/or TURBT procedure No s/s urogenital or gastrointestinal bleeding. Monitor for now I have instructed this patient on the recommended lifestyle changes, which includes a low fat, high fiber diet along with a regular exercise routine. I have also reviewed the recommended age-appropriate preventive testing for this patient. I have also reviewed the recommended vaccines for their age and risk factors. Following TURBT and cystoscopy Oxybutynin isn't helping w/symtoms Suggest checking UA and C/S Author Harley Goodman [facility] Authored October 27, 2024 12:2 6pm This patient is stable witho ut activity [...] Metoprolol, Aldactone and Lisinopril without interruption I instructed this patient on [...] Secondary to diabetic nephropathy and HTN nephroclerosis I have instructed this patient to follow [...] secondary prevention measures Instructed to walk daily Control BS and regular f/u with [employer] I have instructed this patient to consume [...] Amlodipine, Lisinopril and Metoprolol without interruption I have instructed this patient on a low fat, high fiber diet and exercise. I have discussed the primary and secondary prevention benefits attributed to lowering LDL cholesterol. I have also discussed the medical treatment of elevated cholesterol, which is based on the 10 year ASCVD risk. Continue Rosuvastatin without interruption TURBT - 09/29 w/o complications - orellana catheter removed on 10/05 Admitted to [facility] w/ pyelonephritis Treatment w/ broad spectrum antibiotics w/ minimal improvement - dysuria, polyuria and urgency continue Secondary to CKD and/or TURBT procedure No s/s urogenital or gastrointestinal bleeding. Monitor for now Future Tests Future scheduled test information is unavailable Pending Tests Pending diagnostic test information is unavailable Future Visits Future appointment information is unavailable Referrals to Other Providers Referral information is unavailable Future Procedures Procedure Name Ordered Date Scheduled Date Dipstick and Microscopic December 01, 2024 9:4 2am Urine Culture December 01, 2024 9:42am Future Medications Future medication information is unavailable Patient Instructions Instruction Admit Date Diabetes and heart disease November 10, 2024 9:22am
--- OUTSIDE RECORDS SUMMARY | 2024-12-02 09:04 | XMS_ITS ---
Author Organization [facility] Address [address] [place] [address] Care Team Providers Care Assembly Supervisor Name Role Phone Harley Goodman DO Primary Care Provider [phone] Active Problems Problem Noted Date Diagnosed Date Anticoagulated 10/01/2024 Arthritis 10/01/2024 Atheroscler of [place] artery of both legs with intermit claudication [...] (03/21/2022): Added automatically from request for surgery [id number] Gastroesophageal reflux disease 03/02/2022 Increased immunoglobulin 03/02/2022 [...] check diet Coronary artery disease invo lving [place] coronary artery of [place] heart 09/19/2011 Assessment & Plan (08/13/2024 1:28 PM EDT): As above Essential hypertension 09/19/2011 Current Treatment and Therapy Plans No current plan information found. Past Treatment and Therapy Plans No past plan information found. Lifetime Dose Tracking * Chemical Lifetime Dose Automatic Entry Manual Entr y Fluoro Time 97.87 minutes 0 minutes 97.87 minutes Air Kerma 1,585 mGy 0 mGy 1,585 mGy Resolved Problems Problem Noted Date Diagnosed Date Resolved Date Type 1 diabetes mellitus 09/19/2011
--- OUTSIDE RECORDS SUMMARY | 2024-12-02 09:04 | XMS_ITS | Encounter Summary ---
Author Organization [facility] Address [address] [place] [address] Phone Care Team Providers Care Regulator Operator Name Role Phone Unavailable Primary Care Provider Unavailabl e Encounter Details Date Type Department Care Team (Late st Contact Info) Description 01/16/2022 Orders Only [facility] [address] [place] [address] Conversion, Onbase Social History Tobacco Use Types [...]
--- OUTSIDE RECORDS SUMMARY | 2024-12-02 09:04 | XMS_ITS | Clinical Summary ---
Author Organization [facility] Address [address] [place] [address] Care Team Providers Care Aluminum Molding Machine Operator Name Role Phone Harley Goodman DO Primary Care Provider [phone] Allergies Active Allergy Reactions Criticality Noted Date [...] influenza vaccine, whole virus 01/19/2008 novel influenza ([id number]) vaccine, PF 01/27/2009 pneumococcal conjugate (PCV1 3) [...] METABOLIC PANEL (10/25/2020 10:04 AM EDT) Pathologist [facility] Protein, Total 6.6 6.3 - 8.0 g/dL 10/25/2020 10:[address] [facility] Albumin 4.3 3.9 - 4.9 g/dL 10/25/2020 10:[address] [facility] Calcium 9.1 8.5 - 10.2 mg/dL 10/25/2020 10:[address] [facility] Bilirubin, Total 0.7 0.2 - 1.3 mg/dL 10/25/2020 10:[address] [facility] Alkaline Phosphatase 98 38 - 113 U/L 10/25/2020 10:[address] [facility] AST 19 14 - 40 U/L 10/25/2020 10:[address] [facility] Glucose 191(H) 74 - 99 mg/dL 10/25/2020 10:[address] [facility] Comment: The [place] Diabetes Association (ADA) provides guidance for cutoff [...] Standards of Medical Care in Diabetes 2016, [place] Diabetes Association. Diabetes Care. 2016.39(Suppl 1). BUN 20 9 - 24 mg/dL 10/25/2020 10:[address] [facility] Creatinine 1.93(H) 0.73 - 1.22 mg/dL 10/25/2020 10:[address] [facility] Sodium 139 136 - 144 mmol/L 10/25/2020 10:[address] [facility] Potassium 4.2 3.7 - 5.1 mmol/L 10/25/2020 10:[address] [facility] Chloride 106(H) 97 - 105 mmol/L 10/25/2020 10:[address] [facility] CO2 22 22 - 30 mmol/L 10/25/2020 10:[address] [facility] Anion Gap 11 9 - 18 mmol/L 10/25/2020 10:[address] [facility] ALT 16 10 - 54 U/L 10/25/2020 10:[address] [facility] eGFR- 42 10/25/2020 10:[address] [facility] eGFR-All Other Races 35 . 10/25/2020 10:[address] [facility] Comment: eGFR (Estimated GFR) Units of [...] us Agustin Walker MD LABORATORY Final Result [address] [address] [facility] [address] [place], [place] from Last 3 Months or Most Recently Relevant to Health Maintenance Insurance MEDICARE [address] MEDICARE SUPPLEMENT Care Teams Aluminum Molding Machine Operator Relationship Specialty Start Date End Date Harley Goodman DO [address] [place] [address] PCP - General Internal Medicine 07/18/18
--- OUTSIDE RECORDS SUMMARY | 2024-12-02 09:04 | XMS_ITS | Encounter Summary ---
Author Organization [facility] Address [address] [place] [address] Care Team Providers Care City Dispatch Supervisor Name Role Phone Harley Goodman DO Primary Care Provider [phone] Encounter Details Date Type Department Care Team (Late st Contact Info) Description 09/11/2024 Orders Only [facility] [address] [place] [address] Kevin Jacobs MD [address] [place] [address] Social History Tobacco Use Types Packs/Day Years Used Date Smoking Tobacco: Former Cigarettes Smokeless Tobacco: Never Alcohol Use Standard Drinks/Week Comments Never 0 (1 standard drink = 0.6 oz pur e alcohol) [facility] Utilities Answer Date Recorded In the past 12 months has e [employer], gas, oil, or water [employer] threatened to shut off services in your [...] in the past 12 m [facility], were you homeless or living in a care home (including now)? No 08/13/2024 Hunger Vital [...] on file documented as of this encounter Procedures Procedure Name Priority Date/Time Associated Diagnosis Comments CARDIAC DEVICE CHECK - REMOTE - ICD Routine 09/11/2024 12:00 AM EDT documented in this encounter Results * Cardiac device check - Remote ICD (09/11/2024 12:00 AM EDT) Anatomical Region Laterality Modality Other 09/11/2024 Kevin Jacobs MD CV IMPLANTABLE CARDIAC DEVICE NM OCEDURES Final Result documented in this encounter Visit Diagnoses Not on filedocumented in this encounter Care Teams City Dispatch Supervisor Relationship Specialty Start Date End Date Harley Goodman DO [address] [place] [id number] PCP - General 03/02/22 documented as of this encounter
--- OUTSIDE RECORDS SUMMARY | 2024-12-02 09:04 | XMS_ITS | Clinical Summary ---
Author Organization [facility] Address [address] [place] [address] Phone Care Team Providers Care Dump Attendant Name Role Phone Unavailable Primary Care Provider [...] 1950 Sigmoidoscopy 1950 Yearly Adult Physical 1950 MMR Vaccines (1 of 1 - Stand angie series) 11/07/1952 Hepatitis C Screening 11/07/1969 DTaP/Tdap/Td Vaccines (1 - Tdap) 11/07/1973 Pneumococcal Vaccine (1 of 1 - PCV) 11/07/2001 Zoster Vaccines (1 of 2) 11/07/2001 COVID-19 Vaccine ( - 2023-2 5 season) 2023 Influenza Vaccine [...]
--- OUTSIDE RECORDS SUMMARY | 2024-12-02 09:04 | XMS_ITS | Clinical Summary ---
Author Organization [employer] [facility] Address [id number] [address] [place] [address] Care Team Providers Care Service Member Name Role Phone Harley Goodman DO Primary Care Provider [phone] Allergies No known active allergies Medications carvedilol [...] on file Insurance [employer] MEDICARE Care Teams Service Member Relationship Specialty Start Date End Date Harley Goodman DO [facility] [place] [address] PCP - General Internal Medicine 02/14/18
--- OUTSIDE RECORDS SUMMARY | 2024-12-02 09:04 | XMS_ITS | Encounter Summary ---
Author Organization [facility] Address [address] [place] [address] Care Team Providers Care Telecommunications Administrator Name Role Phone Harley Goodman DO Primary Care Provider [phone] Encounter Details Date Type Department Care Team (Late st Contact Info) Description 11/17/2024 Orders Only [facility] [address] [place] [address] Fabricio Galindo MD [address] [place] [address] Social History Tobacco Use Types Packs/Day Years Used Date Smoking Tobacco: Former Cigarettes Smokeless Tobacco: Never Alcohol Use Standard Drinks/Week Comments Never 0 (1 standard drink = 0.6 oz pur e alcohol) [facility] Utilities Answer Date Recorded In the past 12 months has e [employer], gas, oil, or water [employer] threatened to shut off services in your [...] any time in the past 12 m [facility], were you homeless or living in a fci (including now)? No 08/13/2024 Hunger Vital Sign [...] DEVICE CHECK - REMOTE - ICD Routine 11/17/2024 12:00 AM EDT documented in this encounter Results * Cardiac device check - Remote ICD (11/17/2024 12:00 AM EDT) Anatomical Region Laterality Modality Other 11/17/2024 Fabricio Galindo MD CV IMPLANTABLE CARDIAC DEVICE PROCEDURES Final Result documented in this encounter Visit Diagnoses Not on filedocumented in this encounter Care Teams Telecommunications Administrator Relationship Specialty Start Date End Date Harley Goodman DO [address] [place] [address] PCP - General 03/02/22 documented as of this encounter
--- OUTSIDE RECORDS SUMMARY | 2024-12-02 09:04 | XMS_ITS | Encounter Summary ---
Author Organization [facility] Address [facility] [place] [id number] Care Team Providers Care Geophysical Laboratory Director Name Role Phone Harley Goodman DO Primary Care Provider [phone] Source Comments In the event this information is protected by the Federal Confidentiality of Alcohol and Drug AbusePatient Records regulations: The Federal rules restrict any use of the information to criminally investigate or prosecute any alcohol or drug abuse patient.[facility] Encounter Details Date Type Department [...] on filedocumented in this encounter Care Teams Geophysical Laboratory Director Relationship Specialty Start Date End Date Harley Goodman DO [address] [facility] [address] [place] [id number] PCP - General Internal Medicine 07/18/18 documented as of this encounter
--- OUTSIDE RECORDS SUMMARY | 2024-12-02 09:04 | XMS_ITS | Clinical Summary ---
Author Organization [facility] Address [address] [place] [address], [address] [place] [address] Care Team Providers Care Exchange Engineer Name Role Phone Unavailable Primary Care [...]
--- OUTSIDE RECORDS SUMMARY | 2024-12-02 09:04 | XMS_ITS | Encounter Summary ---
Author Organization [facility] Address [address] [place] [address] Care Team Providers Care Ship Carpenter Name Role Phone Harley Goodman DO Primary Care Provider Encounter Details Date Type Department Care Team (Late st Contact Info) Description 07/16/2024 Orders Only [facility] [address] [place] [address] Mannie Armijo MD [address] [place] [address] Social History Tobacco Use Types Packs/Day Years Used Date Smoking Tobacco: Former Cigarettes Smokeless Tobacco: Never Alcohol Use Standard Drinks/Week Comments Never 0 (1 standard drink = 0.6 oz pur e alcohol) [facility] Utilities Answer Date Recorded In the past 12 months has e [employer], gas, oil, or water [employer] threatened to shut off services in your [...] in a care home (including now)? No 02/13/2024 Hunger Vital Sign [...] Mannie Armijo MD CV IMPLANTABLE CARDIAC DEVICE SD OCEDURES Final Result documented in this encounter Visit Diagnoses Not on filedocumented in this encounter Care Teams Ship Carpenter Relationship Specialty Start Date End Date Harley Goodman DO [address] [place] [phone] PCP - General 03/02/22 documented as of this encounter
--- OUTSIDE RECORDS SUMMARY | 2024-12-02 09:04 | XMS_ITS | Clinical Summary ---
Author Organization [facility] Address [address] [place] [address] Care Team Providers Care Pulp Screen Operator Name Role Phone Harley Goodman DO Primary Care Provider [phone] Allergies No known active allergies Medications ALPRAZolam [...] times daily. 180 tablet 3 4 Active spironolactone (Aldactone) 25 mg tabletIndicatio ns:NSTEMI (non-ST elevated myocardial infarction) (CMS/HCC) Take 1 tablet (25 mg) by mouth in the morning. 90 tablet 3 4 01/16/20 25 Active cholecalciferol (Vitamin D3) 25 MCG (1000 [...] under the skin in the morning. Active rosuvastatin (Crestor) 40 mg tabletIndicatio ns:NSTEMI (non-ST elevated myocardial infarction) (CMS/HCC) TAKE 1 TABLET BY MOUTH EVERYDAY AT BEDTIME 90 tablet 3 5 Active nitroglycerin (Nitrostat) 0.4 mg SL tabletIndicatio ns:Chest pain, unspecified type PLACE 1 TABLET UNDER THE TONGUE EVERY 5 MINUTES, UP TO 3 DOSES NEEDED FOR CHEST PAIN 100 tablet 2 5 Active oxyBUTYnin (Ditropan) 5 mg tabletIndicatio ns:Malignant neoplasm of lateral wall of urinary bladder (CMS/HCC) Take 1 tablet (5 mg) by mouth three times daily. 90 tablet 5 12/12/19 25 Active mirabegron (Myrbetriq) 25 mg tablet extended release 24 hrIndications:U rinary frequency Take 1 tablet (25 mg) by mouth in the morning. 30 tablet 5 12/12/19 25 Active tamsulosin (Flomax) 0.4 mg 24 hr capsuleIndicati ons:Malignant neoplasm of lateral wall of urinary bladder (CMS/HCC) Take 1 capsule (0.4 mg) by mouth in the morning. 30 capsule 5 12/12/19 25 Active hyoscyamine (Anaspaz,Levsin ) 0.125 mg tabletIndicatio ns:Malignant neoplasm of lateral wall of urinary bladder (CMS/HCC) Take 1 tablet (0.125 mg) by mouth every 4 (four) hours if needed for cramping for up to 10 days. 30 tablet 5 Active oxyBUTYnin (Ditropan) 5 mg tabletIndicatio ns:Bladder spasms Take 1 tablet (5 mg) by mouth three times daily. 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 09/19/2011 Assessment & Plan (08/13/2024 1:28 PM EDT): As above Essential hypertension 09/19/2011 Resolved Problems Problem Noted Date Diagnosed Date Resolved Date Type 1 diabetes mellitus 09/19/2011 Encounters Date Type Department Care Team Description 11/17/2024 5:55 AM EDT Ancillary Procedure [facility] Card[facility] [address] [place] [address] Pre-operative cardiovascular examination, ICD in place 11/17/2024 Orders Only [facility] Cardiology Clinic [address] [place] [address] Fabricio Galindo MD 11/11/2024 8:58 AM EDT Anesthesia Event [facility] Main Operating Room [address] [place] [address] Xavier Ulrich MD Chakrabarty, Annapoorna, MD 11/11/2024 8:30 AM EDT - 11/11/2024 10:00 AM EDT Surgery [facility] Main Operating Room [address] [place] [address] Last Mcmanus MD TURBT (TRANSURETHRAL RESECTION OF BLADDER TUMOR) [07934 (CPT )] 11/11/2024 6:35 AM EDT - 11/11/2024 11:40 AM EDT Hospital Encounter [facility] Main Operating Room [address] [place] [address] Last Mcmanus MD Malignant neoplasm of lateral wall of urinary bladder (CMS/HCC) (Primary Dx); Malignant neoplasm of urinary bladder, unspecified site (CMS/HCC); Urinary frequency Discharge Disposition: Home or Self Care (01) 11/11/2024 Travel 11/02/2024 Travel 11/02/2024 Telephone Cardiology [address] [place] [address] Pinky Linares MD MEDICATION HOLD (SPOKE WITH DR LINARES OK TO HOLD PLAVIX FOR 5 DAYS BUT TO CONTINUE ASA. LAVERN GRIFFIN NOTIFIED OK WITH CLINIC) 11/01/2024 Refill [facility] Urology [address] [place] [address] Last Mcmanus MD Bladder spasms 10/19/2024 10:45 AM EDT Ancillary Procedure [facility] Cardiology Clinic [address] [place] [address] Pre-operative cardiovascular examination, ICD in place 10/18/2024 Orders Only [facility] Cardiology Clinic [address] [place] [address] Fabricio Galindo MD 10/16/2024 Telephone [facility] Urology [address] [place] [phone] Trice Rodrigez MA 10/16/2024 Refill [facility] [address] [place] [facility] [place] [address] Pinky Linares MD Chest pain, unspecified type (Primary Dx) 10/15/2024 Refill [facility] [address] [place] [facility] [place] [address] Kevin Jacobs MD NSTEMI (non-ST elevated myocardial infarction) (CMS/HCC) (Primary Dx) 10/09/2024 Orders Only [facility] Urology [address] [place] [address] Last Mcmanus MD Bladder mass (Primary Dx); Urinary tract infection without hematuria, site unspecified 10/09/2024 Orders Only [facility] Urology [address] [place] [address] Last Mcmanus MD Bladder spasms (Primary Dx); Malignant neoplasm of urinary bladder, unspecified site (CMS/HCC) 10/08/2024 9:00 AM EDT Office Visit [facility] [address] [place] [facility] [place] [address] Pinky Linares MD Cardiac pacemaker in situ (Primary Dx); NSTEMI (non-ST elevated myocardial infarction) (CMS/HCC); Coronary artery disease involving umkumiut coronary artery of umkumiut heart without angina pectoris; Hypertension, unspecified type; 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 10/08/2024 Telephone [facility] Urology [address] [facility] [place] [address] Trice Rodrigez MA bladder spasms 10/06/2024 8:45 AM EDT Clinical Support [facility] Urolog [address] [place] [address] 09/29/2024 1:37 PM EDT Anesthesia Event [facility] Main Operating Room [address] [place] [address] Dorcas Dang MD Meehl, Austin, MD 09/29/2024 12:30 PM EDT - 09/29/2024 2:00 PM EDT Surgery [facility] [place] [address] Last Mcmanus MD TURBT (TRANSURETHRAL RESECTION OF BLADDER TUMOR) [85082 (CPT )] 09/29/2024 10:39 AM EDT - 09/29/2024 9:00 PM EDT Hospital Encounter [facility] [place] [address] Last Mcmanus MD Lesion of bladder Discharge Disposition: Home or Self Care () 09/29/2024 Travel 09/25/2024 9:00 AM EDT Pre-Admission Testing [facility] Pre-Anesthesia Clinic [address] [place] [address] 09/25/2024 Orders Only [facility] Pre-Anesthesia Clinic [address] [place] [address] Ember Adams, ALBINO 09/25/2024 Orders Only [facility] Pre-Anesthesia Clinic [address] [place] [address] Kb Petersen, ALBINO 09/25/2024 Orders Only [facility] Pre-Operation [address] [place] [address] Will Pepe CNP 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) (Primary Dx) 09/25/2024 Orders Only [facility] Pre-Anesthesia Clinic [address] [place] [address] Will Pepe CNP 09/25/2024 Travel 09/21/2024 7:00 PM EDT Ancillary Procedure [facility] [place] [address] Pre-operative cardiovascular examination, ICD in place 09/21/2024 Orders Only [facility] Urology [address] [place] [address] Last Mcmanus MD Malignant neoplasm of urinary bladder, unspecified site (CMS/HCC) (Primary Dx); Urinary tract infection without hematuria, site unspecified; Other specified disorders of bladder 09/21/2024 Telephone [facility] Urology [address] [place] [address] Serenity De Leon MA 09/18/2024 Orders Only [facility] Pre-Anesthesia Clinic [address] [facility] [place] [address] Kb Petersen RN 09/16/2024 Orders Only [facility] Cardiology Clinic [address] [place] [address] Fabricio Galindo MD 09/11/2024 Orders Only [facility] Cardiology Clinic [address] [place] [address] Kevin Jacobs MD 09/07/2024 Refill [facility] [address] [place] [facility] [address] Criselda Rebollar MA Hypertension, unspecified type 09/02/2024 Telephone [facility] [address] [place] [facility] [place] [address] Criselda Rebollar MA 09/02/2024 Orders Only [facility] Pre-Anesthesia Clinic [address] [place] [address] Kb Petersen RN from Last 3 Months Immunizations Immunization Administration Dates Next Due Influenza Whole 01/19/2008 Influenza, High Dose Seasonal, Preservative Free 01/16/2017 Influenza, Seasonal, Quadrivalent, Adjuvanted Influenza, injectable, quadrivalent, preservativ e free 11/30/2016 Influenza, seasonal, injectable 01/23/2012,12/13 Influenza, trivalent, adjuvanted 01/17/2018 Novel [id number]-[id number], preservative-free 01/27 Pneumococcal Conjugate PCV 13 11/14/2016 [...] drink = 0.6 oz pur e alcohol) [facility] Utilities Answer Date Recorded In the past 12 months has th e [employer], gas, oil, or water [employer] threatened to shut off services in your [...] Sign Reading Time Taken Comments Blood Pressure 130/64 11/11/2024 11:03 AM EDT Pulse 64 11/11/2024 11:03 AM EDT Temperature 36.1 C (97 F) 11/11/2024 10:18 AM EDT Respiratory Rate 14 11/11/2024 11:03 AM EDT Oxygen Saturation 97% 11/11/2024 11:03 AM EDT Inhaled Oxygen Concentration - - Weight 80.1 kg (176 lb 9.4 oz) 11/11/2024 7:15 A M EDT Height 170.2 cm (5' 7 ) 11/11/2024 7:15 AM EDT Body Mass Index 27.66 11/11/2024 7:15 AM EDT Plan of Treatment Health Maintenance [...] this topic Medical Devices Implanted Type Area Athletic Equipment Manager Device Identifier Shelf Expiration Date Model / Serial / Lot Vigilant X4 Loaf Counter-D Is-1/Df4/Is4 Implanted:Qty: 1 on 02/12/2023 by Kevin Jacobs MD at [facility] CSR-D ICD [employer] [id number] 09/09/2024 [id number] / [id number] / Stent,Synergy Mr 4.00 X 28 - [id number] Implanted:Qty: 1 on 09/27/2023 by Petar Foreman MD at [facility] Drug Eluting Stent [employer] [id number] 04/09/2024 [id number] / / [id number] Ingevity+ Is-1 Bi Positive Fix Ra/Rv 52cm Implanted:Qty: 1 on 03/21/2022 by Kevin Jacobs MD at [facility] Lead [employer] [id number] 03/09/2024 [id number] / [id number] / Ingevity+ Is-1 Bi Positive Fix Ra/Rv 45cm Implanted:Qty: 1 on 03/21/2022 by Kevin Jacobs MD at [facility] Lead [employer] [id number] 01/02/2024 7840 / [id number] / Tensed 4-Front S Active Fix Single Coil 59cm Implanted:Qty: 1 on 02/12/2023 by Keivn Jacobs MD at [facility] Lead [employer] [id number] 01/06/2025 0672 / [id number] / Lead,Acuity X4,Spiral L - [id number] - [id number] Implanted:Qty: 1 on 02/12/2023 by Kevin Jacobs MD at [facility] Lead [employer] [id number] 01/13/2025 4677 / [id number] / Pacer,Accolade ,Mri Dr Castelan - [id number] - [id number] Implanted:Qty: 1 on 03/21/2022 by Kevin Jacobs MD at [facility] Pacemaker [employer] 02/05/2024 L331 / [id number] / [id number] Description:Mode: DDD RYTHMIQ: OFF LRL / MTR [...] CARDIAC DEVICE CHECK CHECK - REMOTE Routine 11/19/2024 1:17 PM EDT Pre-operative cardiovascular examination, ICD in place CARDIAC DEVICE CHECK - REMOTE - ICD Routine 11/17/2024 12:00 AM EDT HISTOLOGY - TISSUE EXAM Routine 11/12/19 9:30 AM EDT Malignant neoplasm of urinary bladder, unspecified site (CMS/HCC) WI CYSTOURETHROSCOPY W/DEST &/RMVL MED BLADDER MARIO 11/11/2024 9:00 AM EDT Malignant neoplasm of urinary bladder, unspecified site (CMS/HCC) POCT GLUCOSE METER UNSOLICITED RESULTS Routine 11/11/2024 7:37 AM EDT CARDIAC DEVICE CHECK CHECK - [...] 09/30/19 2:32 PM EDT Lesion of bladder NON-MANUFACTURED BUILDINGS REPAIRER CYTOLOGY - CELLULAR EXAM Routine 09/29/2024 2:15 PM EDT Lesion of bladder ANESTHESIA SPINAL BLOCK Routine 09/30/19 1:45 PM EDT WI CYSTOURETHROSCOPY W/DEST &/RMVL MED BLADDER MARIO 09/29/2024 1:37 PM EDT Lesion of bladder POCT GLUCOSE METER UNSOLICITED RESULTS Routine 09/29/2024 11:12 AM EDT CARDIAC DEVICE CHECK - REMOTE - ICD Routine 09/16/2024 12:00 AM EDT CARDIAC DEVICE CHECK - REMOTE - ICD Routine 09/11/2024 12:00 AM EDT from Last 3 Months Results * CARDIAC DEVICE CHECK - REMOTE - ICD (11/19/2024 1:17 PM EDT) Only the most recent of3 resultswithin the time period is included. Mannie Armijo MD CV IMPLANTABLE CARDIAC DEVICE WI OCEDURES Final Result CPACS * Cardiac device check - Remote ICD (11/17/2024 12:00 AM EDT) Only the most recent of3 resultswithin the time period is included. Anatomical Region Laterality Modality Other 11/17/2024 us Fabricio Galindo MD CV IMPLANTABLE CARDIAC DEVICE PROCEDURES Final Result * Histology - tissue exam (11/11/2024 9:30 AM EDT) Only the most recent of2 resultswithin the time period is included. Case Report Surgical Pathology Case: [id number] Authorizing Provider: Last Mcmanus MD Collected: 11/11/2024 0968 Ordering Location: [facility] Main Operating Room Received: 11/11/2024 1319 Pathologist: Kevin Dawson MD Specimen: Urinary Bladder, bladder mass- left lateral wall 11/17/2024 3:56 PM T [facility] ([facility]) Final Diagnosis A. Urinary bladder, left lateral wall mass, transurethral resection: - Fragments of granulation tissue with necrotizing granulomatous inflammation and focal overlying benign urothelium. - No residual urothelial carcinoma identified. - Muscularis propria (detrusor muscle) is present in the specimen. 11/17/2024 3:56 PM T [facility] ([facility]) at 1556 EDT Clinical Information Post-Op Diagnoses C67.9 - Malignant neoplasm of urinary bladder, unspecified site (CMS/HCC) [ICD-10-CM] 11/17/2024 3:56 PM T [facility] ([facility]) Comment This case was review ed in intradepartmental consensus. 11/17/2024 3:56 PM T [facility] ([facility]) Gross Description A. Urinary Bladder. The specimen is received in formalin labeled Prem A Mega, bladder mass- left lateral wall. It consists of a 2.9 x 2.7 x 1.0 cm aggregate of rubbery vázquez-pink to kohler, bulky soft tissue fragments admixed with minimal hemorrhagic material. The specimen is submitted in toto in 4 cassettes. Marlene Beltre, Pathologists' Sales Representative Jewelry student 11/17/2024 3:56 PM [facility] ([facility]) Microscopic Description Microscopic examination performed. Immunohistochemical stain for pancytokeratin was performed on a strategic partnership representative block and shows no evidence of infiltrative carcinoma. The control is satisfactory. 11/17/2024 3:56 PM T [facility] ([facility]) Disclaimer The interpretation o f this case included the use of immunohistochemistry or special stains. These tests have not been cleared or approved by the U.S. Food and Drug Administration. The FDA has determined that such clearance or approval is not necessary. These tests are used for clinical purposes and should not be regarded as investigational or for research. This laboratory is certified to perform high complexity testing under the Clinical Laboratory Improvement Amendments of 1998. 11/17/2024 3:56 PM T [facility] ([facility]) Tissue Urinary bladder structure / Unknown 11/11/2024 9:30 AM EDT 11/11/2024 1:19 PM EDT Comment:Pre-op diagnosis: Malignant neoplasm of urinary bladder, unspecified site (CMS/HCC) [C67.9] us Last Mcmanus MD LAB PATHOLOGY ORDERABLES Final R esult Performing Organization Address City/[facility]/ZIP Co de Phone Number [facility] ([facility]) [address] [place] [address] * (ABNORMAL) POCT glucose meter (11/11/2024 7:37 AM EDT) Only the most recent of3 resultswithin the time period is included. Glucose POC 202(H) 70 - 105 mg/dL 11/11/2024 7:48 AM EDT [facility] ([facility]) Comment:miward Blood Capillary blood specimen / Unknown 11/11/2024 7:37 AM EDT 11/11/2024 7:48 AM EDT Narrative [facility] ([facility]) - 11/11/2024 7:48 AM EDT Waived Testing in the ED is performed under the ED CLIA certificate #[id number]. us Last Mcmanus MD LAB BLOOD ORDERABLES Final Resul t Performing Organization Address [facility] Co de Phone Number [facility] ([facility]) [address] [place] [phone] * Cardiac device check - Remote alert ICD (10/18/2024 12:00 AM EDT) Anatomical Region Laterality Modality Other 10/18/2024 us Fabricio Galindo MD CV IMPLANTABLE CARDIAC DEVICE PROCEDURES Final Result * Non-fork assembler cytology - cellular exam (09/29/2024 2:15 PM EDT) Case Report Non-gynecologic Cytology Case: [id number] Authorizing Provider: Last Mcmanus MD Collected: 09/29/2024 1415 Ordering Location: [facility] Main Operating Room Received: 09/30/2024 0804 Pathologist: Omayra Sullivan MD Specimen: Urine 10/01/2024 6:05 PM EDT [facility] ([facility]) Final Diagnosis A. Urine, cystoscopic: - Atypical urothelial cells. - Marked acute inflammation. 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 10/01/2024 6:05 PM EDT [facility] ([facility]) at 1805 EDT Comment See also concurrent surgical case, [id number]. 10/01/2024 6:05 PM EDT [facility] ([facility]) Microscopic Description Satisfactory for evaluation. Examination of the ThinPrep slide reveals atypical cells, urothelial cells, abundant acute inflammation, blood, fungal spores consistent with Coretta species and debris. 10/01/2024 6:05 PM EDT [facility] ([facility]) Clinical Information Post-Op Diagnoses N32.9 - Lesion of bladder [ICD-10-CM] 10/01/2024 6:05 PM EDT [facility] ([facility]) Gross Description 80 mL clear, yellow fluid 10/01/2024 6:05 PM EDT [facility] ([facility]) Urine Urine specimen / Unknown 09/29/2024 2:15 PM EDT 09/30/2024 8:04 AM EDT Comment:Pre-op diagnosis: Lesion of bladder [N32.9] Nolani Marietta LEMUS LAB CYTOLOGY ORDERABLES Final Re sult [facility] ([facility]) [address] [place] [address] * Spinal Block (09/29/2024 1:45 PM EDT) Narrative Dorcas Dang MD - 09/29/2024 1:45 PM EDT Dorcas Dang MD 09/29/2024 3:24 PM Spinal Block Patient location during procedure: OR Start time: 09/29/2024 1:45 PM End time: 09/29/2024 1:55 PM Reason for block: primary anesthetic Staffing Performed: resident/PUMP SERVICER HELPER/CAA Anesthesiologist: Dorcas Dang MD Resident/PUMP SERVICER HELPER: Mirela Devlin MD Performed by: Mirela Devlin [...] Dang MD ANESTHESIA ORDERABLES Final Res ult from Last 3 Months Insurance MEDICARE [employer] [place] Advance Directives * Full Code (Latest Code [...] 12:52 PM 01/28/2023 8:05 PM Care Teams Pulp Screen Operator Relationship Specialty Start Date End Date Harley Goodman DO [address] [facility] [place] [phone] PCP - General 03/02/22
--- OUTSIDE RECORDS SUMMARY | 2024-12-02 09:04 | XMS_ITS | Encounter Summary ---
Author Organization [facility] Address [address] [place] [address] Care Team Providers Care Forge Shop Supervisor Name Role Phone Harley Goodman DO Primary Care Provider [phone] Encounter Details Date Type Department Care Team (Late st Contact Info) Description 08/07/2024 Orders Only [facility] Cardiology Clinic [address] [place] [address] Fabricio Galindo MD [address] [place] [address] Social History Tobacco Use Types Packs/Day Years Used Date Smoking Tobacco: Former Cigarettes Smokeless Tobacco: Never Alcohol Use Standard Drinks/Week Comments Never 0 (1 standard drink = 0.6 oz pur e alcohol) [facility] Utilities Answer Date Recorded In the past 12 months has e [employer], gas, oil, or water [employer] threatened to shut off services in your [...] any time in the past 12 m [facility], were you homeless or living in a usp (including now)? No 02/13/2024 Hunger Vital Sign [...] on filedocumented in this encounter Care Teams Forge Shop Supervisor Relationship Specialty Start Date End Date Harley Goodman DO [address] [place] [address] PCP - General 03/02/22 documented as of this encounter
--- OUTSIDE RECORDS SUMMARY | 2024-12-02 09:04 | XMS_ITS | Encounter Summary ---
Author Organization [facility] Address [address] [place] [address] Care Team Providers Care Aeronautics Commission Director Name Role Phone Harley Goodman DO Primary Care Provider [phone] Encounter Details Date Type Department Care Team (Late st Contact Info) Description 09/16/2024 Orders Only [facility] Cardiology Clinic [address] [place] [address] Fabricio Galindo MD [address] [place] [address] Social History Tobacco Use Types Packs/Day Years Used Date Smoking Tobacco: Former Cigarettes Smokeless Tobacco: Never Alcohol Use Standard Drinks/Week Comments Never 0 (1 standard drink = 0.6 oz pur e alcohol) [facility] Utilities Answer Date Recorded In the past 12 months has e [employer], gas, oil, or water [employer] threatened to shut off services in your [...] in the past 12 m [facility], were you homeless or living in [...] EDT) Anatomical Region Laterality Modality Other 09/16/2024 Fabricio Galindo MD CV IMPLANTABLE CARDIAC DEVICE PROCEDURES Final Result documented in this encounter Visit Diagnoses Not on filedocumented in this encounter Care Teams Aeronautics Commission Director Relationship Specialty Start Date End Date Harley Goodman DO [address] [place] [address] PCP - General 03/02/22 documented as of this encounter
--- OUTSIDE RECORDS SUMMARY | 2024-12-02 09:25 | XMS_ITS | CCD ---
Author Organization [facility] Care Team Providers Care Legal Nurse Consultant Name Role Phone ELTAHAWY, EHAB A Admitting Unavailable ELTAHAWY, EHAB A Attending Unavailable HARLEY CRESPO Referring Unavailable CHERIE, HARLEY Primary Care Unavailable ELTAHAWY, NETOAB A Surgeon Unavailable SD Procedure Practitioner Unavailab le ELTAHAWY, NETOAB A Admitting Unavailable ELTAHAWJo, PINKY A Attending Unavailable HARLEY CRESPO Referring Unavailable HARLEY CRESPO Primary Care Unavailable Viky Kwong Unavailable Kingsley Woods Unavailable Shannon Escobar Unavailable HARLEY CRESPO Primary Care Physician [phone] Harley Crespo DO Primary Care Provider DO Harley Crespo Primary Care Provider [phone] JULY Kwong Attending Provider [phone] DO Gagan Shahid Admit Provider [phone] DO Gagan Shahid Attending Provider Harley [...] BALL, DR CARVALHO Admitting Unavailable ZIEBER, DR HIIGNIO Sanchez Consulting Unavailable BALL, DR CARVALHO Consulting Unavailable BALL, DR CARVALHO Primary Care Unavailable BALL, DR CARVALHO Attending Unavailable BALL, DR CARVALHO Admitting Unavailable ZIEBER, DR HIGIINO Sanchez Consulting Unavailable BALL, DR CARVALHO Admitting [...] LARKIN, Jason Sanchez Referring Unavailable LARKIN, Jason R Attending Unavailable CHAYA, Jason R Attending Unavailable LARKIN, Jason R Admitting Unavailable HARLEY CRESPO Referring Unavailable CHAYA, Jason Sanchez Attending Unavailable Harley Crespo DO Primary Care Provider KENNETH TAVERA Attending Unavailable KENNETH TAVERA Attending Unavailable KENNETH TAVERA Attending Unavailable LIANG, KENNETH Mota Attending Unavailable KENNETH TAVERA Attending Unavailable Cherie BRUMFIELD, Harley Primary Care Provider Senia Lane DO Attending Provider [phone] Codi Easley CMA Attending Provider Unavaila Harely Callahan DO Attending Provider Viky Kwong APRN Attending Provider [phone] Katarzyna Youngblood MD Attending Provider [phone] NON STAFF Attending Provider Unavailable Jackson Mcmanus MD Attending Provider Provider, Outside Attending Provider Unavailable Lyssa Alcantar DO Attending Provider Meghan Elizalde MD Attending Provider Harley Crespo DO Primary Care Provider Codi Easley CMA Attending Provider Unavaila Harley Callahan DO Attending Provider Jackson Mcmanus Admitting Unavailable Jackson Mcmanus Attending Unavailable Harley Crespo Primary Care Unavailable Tamara Amaro Admitting Unavail able Lani, Tamara Álvarez Attending Unavail able Latisha, Kingsley Admitting Unavailable Latisha, Kingsley Attending Unavailable Cherie, Harley Admitting Unavailable Cherie, Harley Attending Unavailable NON STAFF Admitting Unavailable NON STAFF Attending Unavailable Marker, Lyssa Rabago Admitting Unavailable Marker, Lyssa Rabago Attending Unavailable Harley Crespo DO Primary Care Provider Kingsley Woods MD Attending Provider Mapus PLATING FOREMAN, Viky Monique Attending Provider [phone] Jason LARKIN Attending Unavailable CHAYA, Jason Sanchez Attending Unavailable Jason LARKIN Attending Unavailable JENNI KEVIN Referring Unavailable JENNI, KEVIN Referring Unavailable JENNI, KEVIN Referring Unavailable AMERICO, BONAVENTURE Referring Unavailable JENNI, KEVIN Referring Unavailable KATKO, HEMALATHA Referring Unavailable HORANI, DEJUAN Admitting Unavailable SELLERS, ARAMIS Attending Unavailable JENNI, KEVIN Referring Unavailable JENNI, KEVIN Referring Unavailable EKWENNA, OBI Admitting Unavailable EKWENNA, OBI Attending Unavailable ELTAHAWY, EHAB Attending Unavailable ELTAHAWY, EHAB Attending Unavailable EKWENNA, OBI Referring Unavailable EKWENNA, OBI Referring Unavailable CRISTOPHER, EMEKA Referring Unavailable CRISTOPHER, EMEKA Referring Unavailable CRISTOPHER, EMEKA Referring Unavailable JENNI, KEVIN Referring Unavailable JENNI, KEVIN Referring Unavailable JENNI, KEVIN Referring Unavailable CRISTOPHER, EMEKA Referring Unavailable WILL, KATARZYNA T Referring Unavailable HORANI, DEJUAN Admitting Unavailable LAURA, HANI Attending Unavailable EKWENNA, OBI Admitting Unavailable EKWENNA, OBI Attending Unavailable AMERICO, BONAVENTURE Referring Unavailable YOST, YFN Referring Unavailable TATIANNA HAYWARD Referring Unavailable YESY, SADIAOPHFLAVIO Referring Unavailable JENNI, KEVIN Referring Unavailable JENNI, KEVIN Attending Unavailable TATIANNA HAYWARD Referring Unavailable JENNI, KEVIN Referring Unavailable JENNI, KEVIN Referring Unavailable EKWENNA, OBI Attending Unavailable JENNI KEVIN Referring Unavailable Harley Crespo DO Primary Care Provider [phone] Codi Easley CMA Attending Provider Unavaila ble Harley Crespo DO Attending Provider Allergies Allergy Classification Reported Allergen(s) Allergy Type Date of Onset Reaction(s) Facility (1 source) [id number]; Translations: [Unknown] Propensity to adverse reactions (disorder) 02-10-20 [facility] Repository (13 sources) semaglutide; Translations: [semaglutide] Allergy to substance 05-28-19 25 Gastrointestinal Upset [facility] Comment on above: constipation (2 sources) No Known Medication Allergies; Translations: [No Known Medication Allergies] Propensity to adverse reactions (disorder) [facility] Repository Medications Current Medications Medication Drug [...] six hours as needed for pain HYDROcodone-acetaminophen ([place]) 5-325 MG tablet TAKE 1 TABLET BY MOUTH EVERY 4 TO 6 HOURS NEEDED FOR PAIN 08/14/2022 Active ALPRAZolam 0.5 mg oral tablet (20 sources) Benzodiazepine Start: 06-22-2020 End: 11-13-2024 take 1 tablet by mouth three times daily as needed for anxiety Alprazolam 0.5 mg tablet Active 0.5 MG PO Three times daily as needed for anxiety 90 November 13, 2024 11:42am Complies with drug therapy Comment on above: Take 0.5 mg by mouth at bedtime as neede d. amLODIPine 5 mg oral tablet (20 sources) Dihydropyridine Calcium Channel Jason Start: 10-27-2024 take 0.25 mg by mouth once daily Amlodipine 5 mg tablet Active 0.25 MG PO Daily October 27, 2024 11:46am Complies with drug therapy Start: 08-25-2024 End: 10-27-2024 take 1 tablet by mouth once daily Amlodipine 5 mg tablet Discontinued 5 MG PO Daily August 25, 2024 12:00am October 27, 2024 11:49am Start: 09-07-2021 take 1 tablet by bhavik [...] PO Every morning June 22, 2020 12:00am Complies with drug therapy take 1 tablet by mouth once rg y aspirin 81 MG chewable tablet Chew 1 tablet every day by oral route. Active Comment on above: Aspirin Active 81 MG PO Daily June 22, 2020 4:21am atorvastatin 80 mg oral tablet (9 sources) HMG-CoA Reductase Inhibitor atorvastatin (Lipito r) 80 MG tablet 1 (one) time each day at the same time. Active cholecalciferol 0.025 mg oral capsule (20 sources) Vitamin D Start: 07-02-19 take 1 capsule by mouth once daily in the morning Cholecalciferol (Vitamin D3) 25 mcg (1,000 unit) capsule Active 25 MCG PO Every morning July 02, 2023 12:00am Complies with drug therapy take 1 capsule by mouth in the [...] MOUTH EVERY DAY Complies with drug therapy Start: 05-17-2024 End: 05-28-2024 take 1 tablet [...] flash glucose sensor (FreeStyle Morris 2 Sensor) (14 sources) Start: 01-23-2024 flash glucose sensor (FreeStyle [...] at times depending on blood sugar Start: 03-19-2024 inject 5 [IU] by sub cutaneous injection [...] 08/03/24 Status: Ordered Repeat number: 1 Start: 10-17-2023 End: 08-03-2024 Insulin Aspart U-100 (Novolo g Flexpen U-100 Insulin) 100 unit/mL (3 mL) insulin pen Active 0 SUBCUT .COMPLEX August 03, 2024 10:17am 8-10-15-18 units according to meal size ac tid. Corrective scale 1:20 ac, tid (HS >200 1/2 dose) Subcutaneous ac, hs; (expect up to 40 units/day) Complies with drug therapy Start: 10-17-2023 End: 10-17-2023 Insulin Aspart U-100 [...] hs; (expect up to 40 units/day) Start: 01-15-2022 End: 06-18-2023 inject 5 [IU] by subcutaneous injection three times daily Insulin Aspart U-100 (Novolog Flexpen U-100 Insulin) 100 unit/mL (3 mL) Insulin Pen Discontinued 1 UNIT SUBCUT Three times daily January 15, 2022 12:00am June 18, 2023 11:08am 5 units at times depending on blood sugar inject 4 [IU] by sub cutaneous injection [...] Active insulin degludec 100 unt/ml injectable solution (17 sources) Insulin Analog Start: 08-03-2024 inject 14 [IU] by subcutaneous injection once daily Tresiba 100 units/mL subcutaneous solution 14 unit(s), SubCutaneous, Daily Start Date: 08/03/24 Status: Ordered Repeat number: 1 Start: 08-03-2024 Insulin Deglud ec (Tresiba Flextouch U-100) 100 unit/mL (3 mL) insulin pen Active 16 UNIT SUBCUT Every morning August 03, 2024 9:38am Complies with drug therapy Start: 04-30-2024 End: 08-03-2024 Insulin Degludec (Tresiba Flextouch U-100) 100 unit/mL (3 mL) insulin pen Discontinued 14 UNIT SUBCUT Every morning April 30, 2024 1:00am August 03, 2024 9:41am Start: 03-12-2023 inject 20 [IU] by saha [...] FOR 30 DAYS Complies with drug therapy Start: 05-08-2024 End: 05-28-2024 take 1 tablet [...] mg/3 mL) pen injector (1 source) Start: 025 inject 0.6 mg by subcutaneous injection once [...] (20 sources) Angiotensin Converting Enzyme Inhibitor Start: 05-05-2 025 take 1 tablet by mouth once daily lisinopril 2.5 mg Tab 2.5 mg = 1 tab(s), Oral, Daily Start Date: 08/03/24 Status: Ordered Repeat number: 1 Start: 08-03-2024 End: 10-27-2024 take 1 tablet by mouth twice daily Lisinopril 2.5 mg tablet Discontinued 2.5 MG PO Twice daily August 03, 2024 12:00am October 27, 2024 11:48am Start: 07-02-2023 End: 02-24-2024 take 1 tablet [...] 03, 2024 9:40am Complies with drug therapy Start: 08-03-2024 take 1 tablet by bhavik th once daily Metoprolol Succinate 50 mg tablet extended release 24 hr Active 50 MG PO daily August 03, 2024 12:00am Complies with drug therapy Start: 04-30-2024 take 1 tablet by bhavik [...] 1 tablet Orally Once a day Active 24 hr mirabegron 50 mg extended release oral tablet (1 source) beta3-Adrenergic Agonist Start: 11-13-2024 take 1 tablet by mouth once daily Myrbetriq 50 mg oral tablet, extended release 50 mg = 1 tab(s), Oral, Daily, # 5 tab(s), Refills(s) 0, Pharmacy: [facility]/pharmacy #[id number], 169, cm, 08/03/24 13:56:00 EDT, Height/Length Dosing, 85.8, kg, 08/03/24 13:56:00 EDT, Weight Dosing Start Date: 11/13/24 Status: Ordered Quantity: 5.0 Unit: tab(s) Repeat number: 1 Multivitamin preparation (20 sources) Start: 01-15-2022 take 1 tablet by mouth once daily Multivitamin Active 1 TAB PO Daily January 14, 2022 11:00pm Start: 01-15-2022 take 1 tablet by bhavik th once daily Multivitamin Active 1 TAB PO Daily January 15, 2022 12:00am take 1 tablet by bhavik th once daily Multi Vitamin - 1 tablet Orally Once a day Active Multivitamin tablet (8 sources) Start: 08-03-2024 take 1 tablet by mouth once daily in the morning Multivitamin tablet Active 1 TAB PO Every morning August 03, 2024 9:41am Complies with drug therapy Start: 08-03-2024 take 1 tablet by bhavik th once daily in the morning Start: 08-03-2024 take 1 tablet by bhavik th once daily in the morning Multivitamin tablet Active 1 TAB PO Every morning August 03, 2024 9:41am nitroglycerin 0.4 mg sublingual tablet (20 sources) Nitrate Vasodilator Start: 06-18-2023 Nitroglyce rin (Nitrostat) 0.4 mg tablet, sublingual Active 0.4 MG SUBLINGUAL Every 5 minutes x 3 doses as needed for chest pain June 18, 2023 12:00am Complies with drug therapy nitroglycerin (N itrostat) 0.4 MG SL tablet [...] sugars E11.9 4 x daily Oct, Active oxybutynin chloride 5 mg oral tablet (4 sources) Cholinergic Muscarinic Antagonist Start: 12-01-2024 take 3 tablets by mouth once daily Oxybutynin Chloride 5 mg tablet Active 15 MG PO Daily December 01, 2024 9:10am Complies with drug therapy Start: 11-23-2024 take 1 tablet by bhavik th once daily oxybutynin 15 mg ER Tab 15 mg = 1 tab(s), Oral, Daily, # 90 tab(s), Refills(s) 3, Pharmacy: [facility]/pharmacy #[id number], 169, cm, 11/23/24 12:23:00 EDT, Height/Length Dosing, 85, kg, 11/23/24 12:23:00 EDT, Weight Dosing Start Date: 11/23/24 Status: Ordered Quantity: 90.0 Unit: tab(s) Repeat number: 4 Indications: Overactive bladder; Start: 11-10-2024 End: 12-01-2024 take 1 tablet by mouth three times daily Oxybutynin Chloride 5 mg tablet Discontinued 5 MG PO Three times daily November 10, 2024 12:00am December 01, 2024 9:11am ozempic (1 mg/dose) 4 mg/3ml solution pen-injector [...] FOR 90 DAYS Complies with drug therapy Start: 12-09-2023 End: 05-28-2024 take 1 tablet [...] ranolazine 500 mg extended release oral tablet (17 sources) Anti-anginal Start: 02-24-2024 take 1 tablet by mouth twice daily Ranolazine 500 mg tablet extended release 12 hr Active 500 MG PO Twice daily February 24, 2024 1:00am Complies with drug therapy rosuvastatin calcium 40 mg oral tablet (20 sources) HMG-CoA Reductase Inhibitor Start: 06-18-2023 take 1 tablet by mouth once daily at bedtime Rosuvastatin 40 mg tablet Active 40 MG PO Daily at bedtime June 18, 2023 12:00am Complies with drug therapy take 1 tablet by bhavik th every [...] 11:03am Saturday spironolactone 25 mg oral tablet (20 sources) Aldosterone Antagonist Start: 10-17-2023 take 1 tablet by mouth once daily in the morning Spironolactone 25 mg tablet Active 25 MG PO Every morning October 17, 2023 12:00am Complies with drug therapy tamsulosin hydrochloride 0.4 mg oral capsule (1 source) alpha-Adrenergic Jason Start: 11-23-2024 tamsulosin 0.4 mg Cap 0.4 mg = 1 cap(s), Refills(s) 0 Start Date: 11/23/24 Status: Ordered Repeat number: 1 thiamine 100 mg oral tablet (20 sources) Start: 08-12-2023 take 1 tablet by mouth every other day Thiamine Hcl (Vitamin B1) 100 mg tablet Active 100 MG PO every other day August 12, 2023 8:45am Complies with drug therapy Start: 07-02-2023 End: 08-12-2023 Thiamine Hcl (Vitamin [...] mg / clavulanate 125 mg oral tablet (20 sources) Penicillin-class Antibacterial Start: 06-24-2020 End: 07-11-2020 [...] take 1 tablet by bhavik twice daily carvedilol 12.5 mg Tab 12.5 [...] with meals. ciprofloxacin 500 mg oral tablet (3 sources) Quinolone Antimicrobial Start: 08-04-19 take 1 tablet by mouth once daily Cipro 500 mg Tab 500 mg = 1 tab(s), Oral, Daily, take one tab day before procedure and one tab after procedure, # 2 tab(s), Refills(s) 0, Pharmacy: [facility]/pharmacy #[id number], 169, cm, 08/03/24 13:56:00 EDT, Height/Length [...] 18, 2023 11:58am take 1 tablet by bahvik every twenty-four hours Farxiga 10 MG 1 tablet Orally Once a day Not-Taking/PRN docusate sodium 100 mg oral capsule (20 sources) Start: 06-18-2023 End: 08-12-2023 take 1 capsule by mouth once daily Docusate Sodium 100 mg capsule Discontinued 100 MG PO Daily June 18, 2023 12:00am August 12, 2023 8:42am take 1 capsule by mo [facility] every twenty-four hours Colace 100 MG 1 [...] pen injector (20 sources) Insulin Analog Start: 01-07-2024 End: 04-30-2024 inject 5 [IU] by subcutaneous injection twice daily Insulin Detemir U-100 (Levemir Flexpen) 100 unit/mL (3 mL) insulin pen Discontinued 5 UNIT SUBCUT Twice daily January 07, 2024 9:19am April 30, 2024 10:44am Start: 10-17-2023 End: 01-07-2024 inject 7 [IU] by subcutaneous injection twice daily Insulin Detemir U-100 (Levemir Flexpen) 100 unit/mL (3 mL) insulin pen Discontinued 7 UNIT SUBCUT Twice daily October 17, 2023 10:08am January 07, 2024 9:19am Start: 06-18-2023 End: 10-17-2023 inject 5 [IU] by subcutaneous injection twice daily Insulin Detemir U-100 (Levemir Flexpen) 100 unit/mL (3 mL) insulin pen Discontinued 5 UNIT SUBCUT Twice daily June 18, 2023 12:00am October 17, 2023 10:10am Start: 01-15-2022 End: 01-15-2022 inject 1 [IU] [...] AC,HS expect 80 units a day Not-Taking levoFLOXacin 250 mg oral tablet (6 sources) Quinolone Antimicrobial Start: 08-27-2024 End: 10-27-2024 Levofloxacin 250 mg tablet Discontinued 0 PO Daily 15 August 27, 2024 12:00am October 27, 2024 11:47am 2 tablets PO on day one, followed by 1 tablet daily 3 ml liraglutide 6 mg/ml pen injector (20 sources) GLP-1 Receptor Agonist Start: 06-17-2024 End: 10-27-2024 Liraglutide (Victoza 3-Michelet) 0.6 mg/0.1 mL (18 mg/3 mL) pen injector Discontinued 1.8 MG SUBCUT Daily August 03, 2024 12:00am October 27, 2024 11:48am star * Start: 05-28-2024 End: 06-17-2024 inject [...] on above: Take by mouth. Multivitamin Tablet (13 sources) Start: 01-15-2022 End: 08-03-2024 take 1 [...] TAB PO Daily January 14, 2022 11:00pm mupirocin 0.02 mg/mg topical ointment (8 sources) RNA Synthetase Inhibitor Antibacterial Start: 07-30-2024 End: 10-27-2024 Mupirocin 2 % ointment Discontinued 1 APPLIC TOPICAL Twice daily 20 01July 30, 2024 12:00am October 27, 2024 11:49am pioglitazone 15 mg oral tablet (1 source) Peroxisome Proliferator Receptor alpha Agonist, Peroxisome Proliferator Receptor gamma Agonist, Thiazolidinedione Start: 07-19-2018 pioglitazone (ACTOS) 15 mg tablet potassium chloride 10 meq oral tablet (20 sources) take 1 tablet by mouth once daily at mealtime Potassium Chloride 10 MEQ 1 tablet with food Orally Once a day Not-Taking/PRN predniSONE 20 mg oral tablet (20 sources) Start: 06-24-2020 End: 07-11-2020 take 2 [...] tablet Orally Twice a day Not-Taking/PRN Semaglutide (20 sources) Start: 06-18-2023 End: 06-18-2023 inject 1 [...] 2023 11:15am ticagrelor 90 mg oral tablet (20 sources) Start: 07-13-2020 End: 07-10-2021 take 1 tablet by mouth twice daily Ticagrelor (Brilinta) 90 mg Tablet Discontinued 90 MG PO Twice daily 180 90 July 13, 2020 12:00am July 10, 2021 9:59am triamcinolone acetonide 0.09906 mg/mg topical ointment (1 source) Corticosteroid triamcinolone [...] Problem Date Documented Date Episodic/Chronic Abdominal pain (15 sources) Right lower quadrant pain; Translations: [Right lower quadrant pain] Onset: 2 Episodic Acute myocardial infarction (20 sources) Myocardial infarction; Translations: [Non-ST elevation (NSTEMI) myocardial infarction] Onset: 2 07-12-2020 Chronic Comment on above: 12/2022, 9 total in lifetime Administrative/social admission (20 sources) Financial problem; Translations: [Other problems related to housing and economic circumstances] Onset: 1 Resolved: 2 Episodic Anxiety disorders (20 sources) Generalized anxiety disorder; Translations: [Generalized anxiety disorder] 08-06-2023 Chronic Biliary tract disease (9 sources) Calculus of gallbladder without cholecystitis without obstruction; Translations: [Biliary calculus] Onset: 2 Episodic Cancer of bladder (12 sources) Transitional cell carcinoma of bladder; Translations: [Malignant neoplasm of bladder, unspecified] Onset: 5 10-12-2024 Chronic Comment on above: Cystoscopy for hemat uria - 07/2024,TURB - 09/2024 Cystoscopy for hemat uria - 07/2024,TURBT - 09/2024 Cancer of bladder (1 source) History of malignant neoplasm of bladder; Translations: [Personal history of malignant neoplasm of bladder] Onset: 5 Episodic Cancer; other and unspecified primary (1 source) H/O: malignant neoplasm 11-23-2024 Episodic Cataract (9 sources) Bilateral age-related nuclear [...] due to drugs Episodi c Conduction disorders (20 sources) Atrioventricular block, complete; Translations: [Presence of [...] 25%, LVH, normal RV size/function - 07/2024,[employer]-D 01/2023 Coronary atherosclerosis and other heart disease (20 sources) Multi vessel coronary artery disease; Translations: [Atherosclerotic heart disease of [place] coronary artery without angina pectoris] Onset: 3 [...] IN CHRONIC KIDNEY DISEASE] Onset: 3 Chronic Deficiency and other anemia (5 sources) Anemia; Translations: [Anemia, unspecified] 10-27-2024 Episodic Diabetes mellitus with complications (20 sources) Type [...] Resolved: 2 Chronic Fluid and electrolyte disorders (16 sources) Dehydration; Translations: [Hyperkalemia] Onset: 2 07-14-2024 Episodic Genitourinary symptoms and ill-defined conditions (20 sources) Lower urinary tract obstructive syndrome; Translations: [Obstructive and reflux uropathy, unspecified] Onset: 5 07-14-2024 Episodic Hyperplasia of prostate (5 sources) Nocturia due to benign prostatic hypertrophy 09-07-2021 Chronic Hypertension with complications and secondary hypertension (20 sources) Chronic kidney disease due to hypertension; Translations: [Hypertensive chronic kidney disease with stage 1 through stage 4 chronic kidney disease, or unspecified chronic kidney disease] Onset: 1 Resolved: 2 Chronic Mycoses (6 sources) Pain in toe; Translations: [Tinea unguium] 01-23-2024 Episodic Nausea and vomiting (11 sources) Nausea; Translations: [Nausea] Onset: 2 Episodic Neoplasms of unspecified nature or uncertain behavior (7 sources) Monoclonal gammopathy of uncertain significance; Translations: [Monoclonal gammopathy (clinical)] Onset: 9 09-07-2021 Chronic Nonspecific chest pain (20 sources) Chest pain; Translations: [Chest pain, unspecified] Onset: 2 07-11-2020 Episodic Nutritional deficiencies (20 sources) Vitamin D deficiency; Translations: [Vitamin D deficiency, unspecified] Onset: 1 Resolved: 2 Chronic Osteoarthritis (4 sources) Arthritis 08-03-2024 Chronic Other aftercare (20 sources) Long-term current use of insulin; Translations: [terminal carman (current) use of insulin] Episodic Other aftercare (11 sources) snf (current) use of insulin; Translations: [terminal carman current use of insulin Z79.4] Onset: 1 Resolved: 2 Episodic Other aftercare (1 source) Long-term current use of anticoagulant; Translations: [terminal carman (current) use of anticoagulants] Onset: 5 Episodic Other circulatory disease (5 sources) Stenosis of abdominal aorta 09-07-2021 Chronic Other connective tissue disease (20 sources) Disorder of rotator cuff; Translations: [Unspecified rotator cuff tear or rupture of right shoulder, not specified as traumatic] Episodic Other connective tissue disease (20 sources) Impingement syndrome of right shoulder region; Translations: [Impingement syndrome of right shoulder] Episodic Other diseases of bladder and urethra (4 sources) Mass of urinary bladder 08-03-2024 Chronic Other diseases of bladder and urethra (1 source) Detrusor overactivity; Translations: [Overactive bladder] Onset: 5 Chronic Other diseases of bladder and urethra (1 source) Overactive bladder 11-23-2024 Chronic Other diseases of bladder and urethra [...] (of renal origin)] Chronic Other gastrointestinal disorders (5 sources) Irritable bowel syndrome 09-07-2021 Chronic Other gastrointestinal disorders (16 sources) Constipation; Translations: [Constipation, unspecified] Episodic Other hematologic conditions (1 source) Raised cardiac enzyme or marker; Translations: [Other specified abnormalities of plasma proteins] 07-11-2020 Episodic Other lower respiratory disease (20 sources) Hypoxia; Translations: [Hypoxemia] 06-22-2020 Episodic Other [...] Translations: [Body mass index (BMI) 30.0-30.9, adult] 08-03-2024 Chronic Other nutritional; endocrine; and metabolic disorders [...] metabolic disorders (5 sources) Body mass index 25-29 - overweight [...] 4 09-07-2021 Episodic Comment on above: PSA: - 07/2023 Other skin disorders (4 sources) Asteatosis cutis; Translations: [Xerosis cutis] 01-23-2024 Episodic Other skin disorders (2 sources) Changes in skin texture; Translations: [Changes in skin texture] 08-03-2024 Episodic Other skin disorders (4 sources) Scab of skin; Translations: [Changes in skin texture] 08-03-2024 Episodic Peripheral and visceral atherosclerosis (5 sources) Intermittent claudication of bilateral lower limbs co-occurrent and due to atherosclerosis 09-07-2021 Chronic Screening and history of mental health and substance abuse codes (6 sources) Personal history of nicotine dependence; Translations: [Ex-smoker] Onset: 3 08-03-2024 Episodic Spondylosis; intervertebral disc disorders; other back problems (5 sources) Lumbar spondylosis 09-07-2021 Chronic Unclassified (1 source) CHRN KIDNEY DISEASE STG 3 UNSP; Translations: [CHRN KIDNEY DISEASE STG 3 UNSP] Onset: 3 Unclassified (1 source) CONTACT W/AND (SUSP) EXPOS COVID-19; Translations: [CONTACT W/AND (SUSP) EXPOS COVID-19] Onset: 2 Unclassified (8 sources) Chronic renal impairment, stage 3b; Translations: [Chronic renal impairment, stage 3b] Unclassified (4 sources) Drug therapy finding 08-03-2024 Unclassified (4 sources) Patient encounter status 08-03-2024 Urinary tract infections (2 sources) Urinary tract infection, site not specified; Translations: [Urinary tract infection, site not specified] Onset: 5 Episodic Past or Other Problems Problem Classification Problem Date Documented Da te Episodic/Chronic Cardiac dysrhythmias (4 sources) Bradycardia, unspecified; Translations: [...] and lower eyelids] Onset: 10-12-2022 10-12-2022 Episodic Neoplasms of unspecified nature or uncertain behavior (2 sources) Neoplasm of unspecified behavior of bladder; Translations: [Neoplasm of unspecified behavior of bladder] Onset: 08-04-2024 Episodic Other aftercare (1 source) terminal carman (current) use of aspirin; Translations: [CIRCUS PERFORMER CURRENT USE OF ASPIRIN] Onset: 04-03-2022 Episodic Other aftercare (1 source) Other intermediate frame tender (current) drug therapy; Translations: [OTH JAIL CURRENT DRUG THERAPY] Onset: 04-03-2022 Episodic Other [...] Test Name Value Interpretation Reference Range Facility Ambulatory Visit Summaryon 0 11-23-2024 Ambulatory Visit Summary Ambulatory Visit Summary LANI LIZAMA :1950 Visit Date:11/23/2024 Ambulatory Visit Instructions Your Diagnosis History of bladder cancer OAB (overactive bladder) Screening PSA (prostate specific antigen) Former smoker Anticoagulated Your Care Team Attending Physician - Jason LARKIN MD Primary Care Physician - HARLEY CRESPO DO This Is Your Medications List oxybutynin (oxybutynin 15 mg ER Tab) Contact prescribing physician if questions or concerns alprazolam (alprazolam 0.5 mg Tab) amlodipine (amLODIPine 10 mg Tab) aspirin (aspirin 81 mg Oral EC Tab) carvedilol (carvedilol 12.5 mg Tab) clopidogrel (Plavix 75 mg Tab) empagliflozin (Jardiance 10 mg oral tablet) famotidine (famotidine 20 mg Tab) insulin aspart (NovoLOG 100 units/mL injectable solution) insulin degludec (Tresiba 100 units/mL subcutaneous solution) isosorbide mononitrate (isosorbide mononitrate 60 mg ER Tab) lisinopril (lisinopril 2.5 mg Tab) lovastatin (lovastatin 40 mg Tab) metoprolol (metoprolol succinate 100 mg ER Tab) pantoprazole (Pantoprazole [address] Tab) ranolazine (ranolazine 500 mg oral ER Tab) rosuvastatin (rosuvastatin 40 mg Tab) spironolactone (spironolactone 25 mg Tab) tamsulosin (tamsulosin 0.4 mg Cap) [Image Removed: STOP]Stop taking these medications mirabegron (Myrbetriq 50 mg oral tablet, extended release) Procedures Performed Colonoscopy (07/10/2021), EGD - Esophagogastroduodenoscopy (07/10/2021), PCI - Percutaneous coronary intervention (07/13/2020), Cardiac catheterization (2018), PCI - Percutaneous coronary intervention (2017), Aortic stent (2016), PCI - Percutaneous coronary intervention (2015), PTCA - Percutaneous transluminal coronary angioplasty (2012), Cardiac catheterization (2009), PTCA - Percutaneous transluminal coronary angioplasty (2007), Cardiac catheterization (2004), Cardiac catheterization (2002), Cardiac catheterization (2002), CABG - Coronary artery bypass graft (1991), Coronary artery bypass graft (1991), History of placement of stent for coronary artery disease, Pacemaker care management, PCI - Percutaneous coronary intervention. Discharge Vitals Temperature (Temporal Artery) 37 ???C Heart Rate (Peripheral) 66 Respiratory Rate 16 Blood Pressure 124/70 Height 169 cm Height 67 in Weight 85 kg Weight 187.393 lb BMI 29.76 What to do next Scheduled Follow-Up Appointments Saturday 9:45 AM EDT With: Jason LARKIN MD Where: [facility] [address] [place] [address]- You Need to Schedule the Following Appointments Follow Up with Jason LARKIN MD, URL When: Comments: 4 wks (new med) Where: [address] [place] [address] Medications What How Much When Why Instructions Changed oxybutynin (oxybutynin 15 mg ER Tab) 1 Tablets By Mouth Every day OAB (overactive bladder) Pickup at [facility]/pharmacy #[id number] Unchanged alprazolam (alprazolam 0.5 mg Tab) 1 [...] physician if questions or concerns Unchanged insulin aspart (NovoLOG 100 units/ mL injectable solution) 12 Units Subcutaneous Every day Contact prescribing physician if questions or concerns Unchanged insulin degludec (Tresiba 100 units/ mL subcutaneous solution) 14 Units Subcutaneous Every day Contact prescribing physician if questions or concerns Unchanged isosorbide mononitrate (isosorbide mononitrate 60 mg ER Tab) 1 Tablets By Mouth 2 times a day Contact prescribing physician if questions or concerns Unchanged lisinopril (lisinopril 2.5 mg Tab) 1 Tablets By Mouth Every day Contact prescribing physician if questions or concerns Unchanged lovastatin (lovastatin 40 mg Tab) 1 Tablets By Mouth Once a day (at bedtime) Contact prescribing physician if questions or concerns Unchanged metoprolol (metoprolol succinate 100 mg ER Tab) 1.5 Tablets By Mouth Every day Contact prescribing physician if questions or concerns Unchanged pantoprazole (Pantoprazole [address] Tab) 1 Tablets By Mouth Every da (more content not included)... Normal [facility] Urology Office/Clinic Noteon 11-23-2024 Urology Office/Clinic Note Urology Office/Clinic Note Chief Complaint F/u to review pathology report HPI Staff F/u to TURBT done 11/11/24 at [facility] to review pathology. Dx: gross hematuria, bladder mass, screening PSA, former smoker and anticoagulated. IPSS score of 20 today. Nocturia x5. Frequency, intermittency and urgency almost always. Pt states he did not have any f these urinary symptoms until he had a catheter. PVR today is 62ml. History of Present Illness Tests reviewed: reviewed UA, PVR, op notes, path reports I have reviewed the previous health record information and history for this patient from external providers and Dr. Larkin. I have reviewed and verified the staff [...] HPI. Physical Exam Vitals & Measurements T: 37 ???C(Temporal Artery) HR: 66(Peripheral) RR: 16 BP: 124/70 HT: 169 cm HT: 67 in WT: 85 kg WT: 187.393 lb BMI: 29.76 General Appearance: alert, no distress, well nourished, well developed male. Assessment/Plan 1. History of bladder cancer (Z85.51: Personal history of malignant neoplasm of bladder) CT AP wo con 07/30/24 [facility] - Bladder mass noted involving posterior wall measuring 1.9 x 1.9 x 1.9 cm. Prostate gland is normal in size. S/p Cysto 08/04/24 - 2 to 3 cm papillary classic TCC neoplasm on the floor towards the bladder neck and left side. An adjacent satellite tumor 1/2 cm is noted. Ureteral orifice is not visualized. Poor visibility due to blood in the urine. Neg cytol. Initial TURBT 09/29/[address] Mcmanus at [facility] - High-grade, invasive papillary urothelial carcinoma. Small fragments of muscularis propria present, uninvolved by neoplasm. Repeat TURBT 11/11/[address] Mcmanus at [facility] - Fragments of granulation tissue with necrotizing granulomatous inflammation and focal overlying benign urothelium. No residual urothelial carcinoma. Reviewed path reports from [facility], re-resection was neg for malignancy. Discussed need for BCG therapy given high-grade dx, which entails BCG x6 wks then BCG x3 wks 3 months later. Will also perform surveillance cystoscopies [id number] to monitor for tumor recurrence. Advised pt of BCG national shortage, treatments may need done by oncology. -Will schedule BCG #6 after pt is able to hold urine for >2 hrs (trialing Oxybutynin ER per #2) -Surveillance cysto in 3 mos 2. OAB (overactive bladder) (N32.81: Overactive bladder) IPSS 20 (6). Started have frequency, urgency after TURBT and catheter removal. PVR 62 mL. Tried Myrbetriq but it was cost-prohibitive. Currently taking Oxybutynin 5mg tid, started ~4 days ago. No improvement of sxs. Educated pt location of resection site is likely to be causing sxs. Recommended pt to try Oxybutynin ER and at a higher dosage. Possible SEs discussed. Pt willing to try this. -Start Oxybutynin ER 15 mg qd. Rx sent to [facility]. GoodRx coupon provided. -F/u in 4 wks 3. Screening PSA (prostate specific antigen) (Z12.5: Encounter for screening for malignant neoplasm of prostate) PSA 08/27/23 - 1.37. -Cont PSA monitoring w/ PCP [1] 4. Former smoker (Z87.891: Personal history of nicotine dependence) x32 yrs. Risk factor for urothelial ca. [2] 5. Anticoagulated (Z79.01: snf (current) use of anticoagulants) On Plavix. Hx of CABG x5 1995 at [facility], PCI/stent x8 at [facility]. Elevated risk for periop complications. [3] Follow-up With When Contact Information CHAYA LEMUS, Jason Sanchez, URL [address] [place] [address] [place] [address] Additional Instructions: 4 wks (new med) Patient Education Overactive Bladder, Adult Bladder Cancer I, Tiffany Patten, personally scribed for Dr. Larkin on 11/23/2024 13:53:09. . Documentation recorded by the scribe, Tiffany Patten, accurately reflects the services(s) I performed and decisions made by me. Authenticated by Dr. Larkin on 11/23/2024 13:54:27. 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 Normal [facility] Comment on above: Result Comment: Elec tronically Signed By: CHAYA LEMUS, Jason Sanchez\.br\Date and Time Signed: 11/23/24 13:54 EDT\.br\Electronically Co-Signed By: Tiffany Patten\.br\Date and Time Co-Signed: 11/23/24 13:53 EDT Orders Onlyon 11-17-2024 Orders Only [id number] Lani Lizama 1950 Date Provider Department Center 11/17/2024 FélixFABRICIO ALVAREZ [facility] CARD NM HeartVAS Family History Problem Relation Age of Onset Heart attack Mother Other Father Other Brother Heart attack Maternal Grandmother Heart attack Maternal Grandfather Family Status - Relation Status Age at Mother Father Brother Maternal Grandmother Maternal Grandfather [facility] HISTOLOGY - TISSUE EXAMon LAB AP ASR DISCLAIMER The interpretation of this case included the use of immunohistochemistry [...] the Clinical Laboratory Improvement Amendments of 1998. Normal [facility] Comment on above: Order Comment: Pre-o p diagnosis:Malignant neoplasm of urinary bladder, unspecified site (CMS/HCC) [C67.9] Performed By: #### L [id number] #### [facility] [[email or web address]] LAB (BEAKER) [address] [place] [address] LAB AP CASE REPORT Normal [facility] Comment on above: Order Comment: Pre-o p diagnosis:Malignant neoplasm of urinary bladder, unspecified site (CMS/HCC) [C67.9] Result Comment: Surg ical Pathology Case: [id number] Authorizing Provider: Last Mcmanus MD Collected: 11/11/2024 0944 Ordering Location: [facility] Main Operating Room Received: 11/11/2024 1319 Pathologist: Kevin Dawson MD Specimen: Urinary Bladder, bladder mass- left lateral wall Performed By: #### L [id number] #### [facility] [[email or web address]] LAB (BEAKER) [address] [place] [address] LAB AP CLINICAL INFORMATION [facility] Comment on above: Order Comment: Pre-o p diagnosis:Malignant neoplasm of urinary bladder, unspecified site (CMS/HCC) [C67.9] Result Comment: Post -Op Diagnoses C67.9 - Malignant neoplasm of urinary bladder, unspecified site (CMS/HCC) [ICD-10-CM] Performed By: #### L [id number] #### [facility] [[email or web address]] LAB (BEAKER) [address] [place] [address] LAB AP DIAGNOSIS COMMENT This case was reviewed in intradepartmental consensus. [facility] Comment on above: Order Comment: Pre-o p diagnosis:Malignant neoplasm of urinary bladder, unspecified site (CMS/HCC) [C67.9] Performed By: #### L [id number] #### [facility] [[email or web address]] LAB (BEAKER) [address] [place] [address] LAB AP GROSS DESCRIPTION [facility] Comment on above: Order Comment: Pre-o p diagnosis:Malignant neoplasm of urinary bladder, unspecified site (CMS/HCC) [C67.9] Result Comment: A. U rinary Bladder. The specimen is received in formalin labeled Lani A Mega, bladder mass- left lateral wall. It consists of a 2.9 x 2.7 x 1.0 cm aggregate of rubbery vázquez-pink to kohler, bulky soft tissue fragments admixed with minimal hemorrhagic material. The specimen is submitted in toto in 4 cassettes. Marlene Beltre, Pathologists' [employer] Game [employer] student Performed By: #### L [id number] #### [facility] [[email or web address]] LAB (BEAKER) [address] [place] [address] LAB AP MICROSCOPIC DESCRIPTION [facility] Comment on above: Order Comment: Pre-o p diagnosis:Malignant neoplasm of urinary bladder, unspecified site (CMS/HCC) [C67.9] Result Comment: Micr oscopic examination performed. Immunohistochemical stain for pancytokeratin was performed on a uniforms sales representative block and shows no evidence of infiltrative carcinoma. The control is satisfactory. Performed By: #### L AB17 #### [facility] [[email or web address]] LAB ([facility]) [address] [place] [address] LAB AP REPORT FINAL DIAGNOSIS NARRATIVE Normal [facility] Comment on above: Order Comment: Pre-o p diagnosis:Malignant neoplasm of urinary bladder, unspecified site (CMS/HCC) [C67.9] Result Comment: A. U rinary bladder, left lateral wall mass, transurethral resection: - Fragments of granulation tissue with necrotizing granulomatous inflammation and focal overlying benign urothelium. - No residual urothelial carcinoma identified. - Muscularis propria (detrusor muscle) is present in the specimen. at 1556 EDT Performed By: #### L [id number] #### [facility] [[email or web address]] LAB ([facility]) [address] [place] [address] HPon 11-11-2024 HP History Of Present Bridgett Lizama is a 74 y.o. male presenting for cystoscopy with TURBT. Returns for re-resection secondary to high grade disease Past Medical History Medical History[1] Surgical History Surgical History[2] Social History Social History Socioeconomic History Marital status: Spouse name: None Number of children: None Years of education: None Highest education level: None Occupational History None Tobacco Use Smoking status: Former Types: Cigarettes Smokeless tobacco: Never Vaping Use Vaping status: Never Used Substance and Sexual Activity Alcohol use: Never Drug use: Never Sexual activity: Defer Other Topics Concern None Social History Narrative None Social Drivers of Health Financial Resource Strain: [...] in the Last Year: No Family History Family History[3] Allergies Allergies[4] Medications Prescriptions Prior to Admission[5] Review of Systems Constitutional: Negative for activity change, chills and fatigue. HENT: Negative for congestion and ear pain. Respiratory: Negative for apnea, cough and shortness of breath. Genitourinary: Negative for difficulty urinating, flank pain, hematuria and penile pain. Musculoskeletal: Negative for arthralgias, joint swelling and myalgias. Last Recorded Vitals Visit Vitals BP 142/71 Pulse 78 Temp 35.9 ???C (96.6 ???F) (Temporal) Resp 18 Ht 1.702 m (5' 7 ) Wt 80.1 kg (176 lb 9.4 oz) SpO2 98% BMI 27.66 kg/m??? Smoking Status Former BSA 1.95 m??? Physical Exam Constitutional: Appearance: Normal appearance. HENT: Head: Normocephalic. Eyes: Pupils: Pupils are equal, round, and reactive to light. Cardiovascular: Rate and Rhythm: Normal rate. Pulmonary: Effort: Pulmonary effort is normal. Abdominal: General: Abdomen is flat. Palpations: Abdomen is soft. Musculoskeletal: Cervical back: Normal range of motion. Neurological: Mental Status: He is alert. Relevant Lab Results Lab Results Component Value Date NA 138 08/28/2024 K 5.9 (H) 08/28/2024 CL 105 08/28/2024 CO2 28 08/28/2024 BUN 30 (H) 08/28/2024 CREATININE 1.95 (H) 08/28/2024 GLUCOSE 185 (H) 08/28/2024 CALCIUM 9.6 08/28/2024 ANIONGAP 11 08/28/2024 EGFR 35.9 (L) 08/28/2024 BCR 15.4 08/28/[address] transfer of outside films This order has been auto-finalized and does not contain a result. Plan for Cytoscopy with transurethral resection of the bladder tumor [1] Past Medical History: Diagnosis Date Allergic rhinitis Arthritis Cancer (CMS/HCC) BLADDER Carotid artery stenosis Chronic kidney disease Coronary artery disease Diabetes mellitus (CMS/HCC) GERD (gastroesophageal reflux disease) HL (hearing loss) Hyperlipidemia Hypertension Myocardial infarction (CMS/HCC) Pacemaker PVD (peripheral vascular disease) Status post internal cardiac defibrillator procedure Third degree heart block (CMS/HCC) [2] Past Surgical History: Procedure Laterality Date CARDIAC CATHETERIZATION 07/12/2020 CARDIAC CATHETERIZATION 10/15/2018 CARDIAC CATHETERIZATION 02/24/2018 CARDIAC CATHETERIZATION 09/27/2015 CORONARY ARTERY BYPASS GRAFT CORONARY STENT PLACEMENT TONSILLECTOMY [3] Family History Problem Relation Name Age of Onset Heart attack Mother Other (malignant neoplastic disease) Father Other (malignant neoplastic disease) Brother Heart attack Maternal Grandmother Heart attack Maternal Grandfather [4] No Known Allergies [5] Medications Prior to Admission Medication Sig Dispense Refill Last Dose/Taking ALPRAZolam (Xanax) 0.5 mg tablet Take 1 tablet by mouth in the morning, afternoon, and at bedtime. 11/11/2024 Morning amLODIPine (Norvasc) 5 mg tablet Take 1 tablet (5 mg) by mouth in the morning. 90 tablet 3 11/10/2024 aspirin 81 mg chewable tablet Chew 1 tablet every day by oral route. 11/10/2024 cholecalciferol (Vitamin D3) 25 MCG (1000 units) tablet Take 1,000 Uni (more content not included)... Normal [facility] NURSNOTEon 11-11-2024 NURSNOTE Pt alert and oriente d x 4 arrives to the unit with steady gait. He verbalizes understanding of scheduled surgery and ordered pre op medications. Pt speaks in full sentences and answers pre op questions appropriately. Normal [facility] OPNOTEon 11-11-2024 OPNOTE TURBT (TRANSURETHRAL RESECTION OF BLADDER TUMOR) Operative Note Date: 11/11/2024 Location: [facility] OR Name: Lani Lizama, : 1950, Diagnosis Pre-op Diagnosis * Malignant neoplasm of urinary bladder, unspecified site (CMS/HCC) [C67.9] Post-op Diagnosis * Malignant neoplasm of urinary bladder, unspecified site (CMS/HCC) [C67.9] Procedures TURBT (TRANSURETHRAL RESECTION OF BLADDER TUMOR) 82902 - SD CYSTOURETHROSCOPY W/DEST &/RMVL MED BLADDER MARIO Surgeons Primary: Last Mcmanus MD Resident - Assisting: Marquis Baltazar MD Procedure Summary Anesthesia: General ASA: IV Estimated Blood Loss: None Total IV Fluids: See Anesthesia notes mL Drains: [REMOVED] Urethral Catheter 18 Fr. (Removed) Specimens ID Source Type Tests Collected By Collected At Frozen? Priority Lab ID A Urinary Bladder Tissue HISTOLOGY - TISSUE EXAM Last Mcmanus MD 11/11/24 [id number] No Routine [id number] Description: bladder mass- left lateral wall Staff: Transition Assistant: Ani Floyd RN Scrub Person: Jenise Fernandez RN Orientee Transition Assistant: Carissa rFey RN Indications: Lani Lizama is an 74 y.o. male who is having surgery for Malignant neoplasm of urinary bladder, unspecified site (CMS/HCC) [C67.9]. He had initial high grade bladder cancer. As a result, he returns for follow-up and re-resection Procedure Details: The patient was seen in [...] has been actively warmed in preoperative area. Preoperative antibiotics have been ordered and given within [...] the bladder. A england-cystoscopy was performed and we identified the resection site, 3cm area. We switched to a resectoscope. We then resected the area systematically. We resected all concerning areas and deep enough to incorporate muscle into the specimen. We then obtained adequate hemostasis. He tolerated the procedure well. We decided to place a rg catheter in place. Findings: Re-resection of tumor bed as well as surrounding areas 18 uzbek rg placed Complications: None; patient tolerated the procedure well. Disposition: PACU - hemodynamically stable. Condition: stable Obi Ekwenna Procedure Attestation Level of Attending Supervision for Procedure I was present for the entire procedure Normal [facility] POCT GLUCOSE METER UNSOLICIT ED RESULTSon 11-11-2024 Glucose [Mass/Vol] 202 mg/dL High 70-105 [facility] Comment on above: Order Comment: Waive d Testing in the ED is performed under the ED CLIA certificate #[id number]. Result Comment: [address] Performed By: #### L [id number] ####[facility] [[email or web address]] LAB (BEAKER)[address] [place] [address] HbA1c HPLC (Bld) [Mass fract ion]Ordered By: Viky Kwong on 11-10-2024 HbA1c (Bld) [Mass fraction] 7.1 % [facility] No Panel InformationOrdered By: Viky Kwong on 11-10-2024 Bedside Glucose 127 [facility] Erythrocyte distribution wid th Auto (RBC) [Ratio]Ordered By: Kingsley Woods on 11-09-2024 Erythrocyte distribution width (RBC) [Ratio] 16.2 % High 11.0-15.0 [facility] Glomerular filtration rate ( GFR) estimation in non- AmericanOrdered By: Kingsley Woods on 11-09-2024 GFR/1.73 sq M.predicted among non-blacks MDRD (S/P/Bld) [Vol rate/Area] 34 mL/min/{1.73_m2} Low >=60 mL/min/1.7 3m 2 [facility] Hematocrit Auto (Bld) [Volum e fraction]Ordered By: Kingsley Woods on 11-09-2024 Hematocrit (Bld) [Volume fraction] 39.8 % Low 42.0-54.0 [facility] Hemoglobin [Mass/volume] in BloodOrdered By: Kingsley Woods on 11-09-2024 Hemoglobin (Bld) [Mass/Vol] 12.7 g/dL Low 14.0-18.0 [facility] Laboratory - Chemistry and C hemistry - challengeOrdered By: Kingsley Woods on 11-09-2024 Albumin [Mass/Vol] 3.8 g/dL 3.4-5.0 [facility] Calcium [Mass/Vol] 9.2 mg/dL 8.5-10.1 [facility] Chloride [Moles/Vol] 108 mmol/L High 98-107 [facility] CO2 [Moles/Vol] 25.9 mmol/L 21.0-32.0 [facility] Creatinine [Mass/Vol] 1.95 mg/dL High 0.70-1.30 [facility] GFR/1.73 sq M.predicted MDRD (S/P/Bld) [Vol rate/Area] 41 mL/min/{1.73_m2} Low >=60 mL/min/1.7 3m 2 [facility] Glucose [Mass/Vol] 146 mg/dL High 74-106 [facility] Magnesium [Mass/Vol] 1.9 mg/dL 1.8-2.4 [facility] Potassium [Moles/Vol] 3.9 mmol/L 3.5-5.1 [facility] Sodium [Moles/Vol] 144 mmol/L 136-145 [facility] Urate [Mass/Vol] 3.9 mg/dL 3.5-7.2 [facility] Urea nitrogen [Mass/Vol] 27.0 mg/dL High 7.0-18.0 [facility] Urea nitrogen/Creatinine [Mass ratio] 13.8 mg/mg [facility] Bilirubin Ql (U) Negative NEGATIVE [facility] Glucose (U) [Mass/Vol] mg/dL Abnormal NEGATIVE [facility] Ketones Ql (U) Negative NEGATIVE [facility] pH (U) 6.0 [pH] 5.0-9.0 [facility] Specific gravity (U) [Rel density] 1.015 1.005-1.02 5 [facility] Urobilinogen Qn (U) 0.2 {Luisito'U}/dL 0.2-1.0 [facility] Laboratory - Specimen inform ationOrdered By: Kingsley Woods on 11-09-2024 Appearance (U) CLOUDY Abnormal CLEAR [facility] Color (U) LT. YELLOW YELLOW [facility] Laboratory - UrinalysisOrder ed By: Kingsley Woods on 11-09-2024 Leukocyte esterase Test strip Ql (U) MODERATE Abnormal NEGATIVE [facility] Mucus Ql (Urine sed) NONE SEEN NONE SEEN [facility] Nitrite Ql (U) Negative NEGATIVE [facility] Protein (U) [Mass/Vol] 136.5 mg/dL High <=11.9 [facility] Protein Ql (U) 100 mg/dL Abnormal NEG/TRACE [facility] Leukocytes [#/volume] correc soraya for nucleated erythrocytes in Blood by Automated counOrdered By: Kingsley Woods on 11-09-2024 WBC corrected for nucl RBC Auto (Bld) [#/Vol] 8.8 10 3/uL 4.0-11.0 [facility] MCH Auto (RBC) [Entitic mass ]Ordered By: Kingsley Woods on 11-09-2024 MCH (RBC) [Entitic mass] 29.4 pg 25.9-34.0 [facility] MCHC Auto (RBC) [Mass/Vol]Or dered By: Kingsley Woods on 11-09-2024 MCHC (RBC) [Mass/Vol] 31.9 g/dL 29.9-35.2 [facility] MCV Auto (RBC) [Entitic vol] Ordered By: Kingsley Woods on 11-09-2024 MCV (RBC) [Entitic vol] 92.1 fL 80.0-94.0 [facility] No Panel InformationOrdered By: Kingsley Woods on 11-09-2024 25-Hydroxy Vitamin D Total 41.1 ng/mL [facility] Comment on above: <20 ng/mL Vit D defi cient20-<30 ng/mL Vit D [id number] ng/mL Vit D sufficient>100 ng/mL Potential Toxicity Parathyroid Hormone (Intact) 37 pg/mL 15-65 [facility] Comment on above: Performed at: - [address] [id number] Director: Kwaku Park PhD, Phone: [phone] Phosphorus Level 3.3 mg/dL 2.6-4.7 [facility] Urine Bacteria SMALL #/HPF Abnormal NONE SEEN [facility] Urine Occult Blood LARGE Abnormal NEGATIVE [facility] Urine Other Casts NONE SEEN #/LPF NONE SEEN [facility] Urine Other Crystals None Seen #/HPF None Seen [facility] Urine Random Creatinine 54.14 mg/dL 20.00-300. 00 [facility] Urine RBC 2-5 #/HPF Abnormal 0-2 [facility] Urine Squamous Epithelial Cells RARE #/LPF NONE/RARE [facility] Urine WBC 75-100 #/HPF Abnormal NONE SEEN [facility] Platelet mean volume Auto (B ld) [Entitic vol]Ordered By: Kingsley Woods on 11-09-2024 Platelet mean volume (Bld) [Entitic vol] 10.0 fL 9.5-13.5 [facility] Platelets Auto (Bld) [#/Vol] Ordered By: Kingsley Woods on 11-09-2024 Platelets (Bld) [#/Vol] 219 10 3/uL 150-450 [facility] RBC Auto (Bld) [#/Vol]Ordere d By: Kingsley Woods on 11-09-2024 RBC (Bld) [#/Vol] 4.32 10 6/uL Low 4.70-6.10 [facility] Serum or plasma anion gap de terminationOrdered By: Kingsley Woods on 11-09-2024 Anion gap [Moles/Vol] 14.0 mmol/L [facility] Urine protein/creatinine rat ioOrdered By: Kingsley Woods on 11-09-2024 Protein/Creatinine (U) [Ratio] 2.52 [facility] Yeast detection in urine sed iment by light microscopyOrdered By: Kingsley Woods on 11-09-2024 Yeast LM Ql (Urine sed) SEEN Abnormal NONE SEEN [facility] Telephoneon 11-02-2024 Telephone [phone] Lani Lizama 1950 M Date Provider Department Center 11/02/2024 [facility] None Family History Problem Relation Age of Onset Heart attack Mother Other Father Other Brother Heart attack Maternal Grandmother Heart attack Maternal Grandfather Family Status - Relation Status Age at Mother Father Brother Maternal Grandmother Maternal Grandfather Reason for Visit and Comments: MEDICATION HOLD [Other] - SPOKE WITH DR BISHOP OK TO HOLD PLAVIX FOR 5 DAYS BUT TO CONTINUE ASA. [place] NOTIFIED OK WITH CLINIC Normal [facility] Activated partial thrombopla stin time (aPTT) in platelet poor plasma by coagulation aOrdered By: Jackson Mcmanus on 10-26-2024 aPTT Coag (PPP) [Time] 26.5 s 22.3-36.2 [facility] Basophils Auto (Bld) [#/Vol] Ordered By: Jackson Mcmanus on 10-26-2024 Basophils (Bld) [#/Vol] 0.1 10 3/uL 0.0-0.1 [facility] Basophils/100 WBC Auto (Bld) Ordered By: Jackson Mcmanus on 10-26-2024 Basophils/100 WBC (Bld) 0.7 % 0.2-2.0 [facility] Eosinophils/100 WBC Auto (Bl d)Ordered By: Jackson Mcmanus on 10-26-2024 Eosinophils/100 WBC (Bld) 2.0 % 0.9-7.0 [facility] Erythrocyte distribution wid th Auto (RBC) [Ratio]Ordered By: Jackson Mcmanus on 10-26-2024 Erythrocyte distribution width (RBC) [Ratio] 16.6 % High 11.0-15.0 [facility] Estimated glomerular filtrat ion rate (GFR) non- AmericanOrdered By: Jackson Mcmanus on 10-26-2024 GFR/1.73 sq M.predicted among non-blacks MDRD (S/P/Bld) [Vol rate/Area] 28 mL/min/{1.73_m2} Low >=60 mL/min/1.7 3m 2 [facility] Globulin Calc (S) [Mass/Vol] Ordered By: Jackson Mcmanus on 10-26-2024 Globulin (S) [Mass/Vol] 4.3 g/dL [facility] Hematocrit Auto (Bld) [Volum e fraction]Ordered By: Jackson Mcmanus on 10-26-2024 Hematocrit (Bld) [Volume fraction] 40.1 % Low 42.0-54.0 [facility] Hemoglobin [Mass/volume] in BloodOrdered By: Jackson Mcmanus on 10-26-2024 Hemoglobin (Bld) [Mass/Vol] 12.6 g/dL Low 14.0-18.0 [facility] INR in Platelet poor plasma by Coagulation assayOrdered By: Jackson Mcmanus on 10-26-2024 INR Coag (PPP) [Relative time] 1.06 {INR} [facility] Comment on above: DESIRED INR:2.0-3.0 CONDITIONS NOT LISTED BELOW2.5-3.5 FOR PROSTHETIC HEART VALVE REPLACEMENT2.5-3.5 RECURRENT THROMBOSIS Laboratory - Chemistry and C hemistry - challengeOrdered By: Jackson Mcmanus on 10-26-2024 Albumin [Mass/Vol] 3.6 g/dL 3.4-5.0 [facility] ALP [Catalytic activity/Vol] 180 U/L High 46-116 [facility] ALT [Catalytic activity/Vol] 46 U/L 16-63 [facility] AST [Catalytic activity/Vol] 26 U/L 15-37 [facility] Bilirubin [Mass/Vol] 0.5 mg/dL 0.2-1.0 [facility] Calcium [Mass/Vol] 9.2 mg/dL 8.5-10.1 [facility] Chloride [Moles/Vol] 105 mmol/L 98-107 [facility] CO2 [Moles/Vol] 28.7 mmol/L 21.0-32.0 [facility] Creatinine [Mass/Vol] 2.29 mg/dL High 0.70-1.30 [facility] GFR/1.73 sq M.predicted MDRD (S/P/Bld) [Vol rate/Area] 34 mL/min/{1.73_m2} Low >=60 mL/min/1.7 3m 2 [facility] Glucose [Mass/Vol] 200 mg/dL High 74-106 [facility] Potassium [Moles/Vol] 4.4 mmol/L 3.5-5.1 [facility] Protein [Mass/Vol] 7.9 g/dL 6.4-8.2 [facility] Sodium [Moles/Vol] 143 mmol/L 136-145 [facility] Urea nitrogen [Mass/Vol] 30.0 mg/dL High 7.0-18.0 [facility] Urea nitrogen/Creatinine [Mass ratio] 13.1 mg/mg [facility] Laboratory - Hematology and Cell countsOrdered By: Jackson Mcmanus on 10-26-2024 Immature granulocytes/100 WBC (Bld) 0.7 % High 0.0-0.5 [facility] Leukocytes [#/volume] correc soraya for nucleated erythrocytes in Blood by Automated counOrdered By: Jackson Mcmanus on 10-26-2024 WBC corrected for nucl RBC Auto (Bld) [#/Vol] 11.0 10 3/uL 4.0-11.0 [facility] Lymphocytes Auto (Bld) [#/Vo l]Ordered By: Jackson Mcmanus on 10-26-2024 Lymphocytes (Bld) [#/Vol] 1.6 10 3/uL 1.2-3.8 [facility] Lymphocytes/100 WBC Auto (Bl d)Ordered By: Jackson Mcmanus on 10-26-2024 Lymphocytes/100 WBC (Bld) 14.5 % Low 20.5-60.0 [facility] MCH Auto (RBC) [Entitic mass ]Ordered By: Jackson Mcmanus on 10-26-2024 MCH (RBC) [Entitic mass] 29.6 pg 25.9-34.0 [facility] MCHC Auto (RBC) [Mass/Vol]Or dered By: Jackson Mcmanus on 10-26-2024 MCHC (RBC) [Mass/Vol] 31.4 g/dL 29.9-35.2 [facility] MCV Auto (RBC) [Entitic vol] Ordered By: Jackson Mcmanus on 10-26-2024 MCV (RBC) [Entitic vol] 94.4 fL High 80.0-94.0 [facility] Monocytes Auto (Bld) [#/Vol] Ordered By: Jackson Mcmanus on 10-26-2024 Monocytes (Bld) [#/Vol] 1.0 10 3/uL High 0.3-0.8 [facility] Monocytes/100 WBC Auto (Bld) Ordered By: Jackson Mcmanus on 10-26-2024 Monocytes/100 WBC (Bld) 8.9 % 1.7-12.0 [facility] Neutrophils Auto (Bld) [#/Vo l]Ordered By: Jackson Mcmanus on 10-26-2024 Neutrophils (Bld) [#/Vol] 8.0 10 3/uL High 1.4-6.5 [facility] Neutrophils/100 WBC Auto (Bl d)Ordered By: Jackson Mcmanus on 10-26-2024 Neutrophils/100 WBC (Bld) 73.2 % 43.0-75.0 [facility] No Panel InformationOrdered By: Jackson Mcmanus on 10-26-2024 Eosinophils # (Auto) 0.2 10 3/uL 0.0-0.7 [facility] Immature Granulocyte # (Auto) 0.08 10 3/uL High 0.00-0.03 [facility] Platelet mean volume Auto (B ld) [Entitic vol]Ordered By: Jackson Mcmanus on 10-26-2024 Platelet mean volume (Bld) [Entitic vol] 10.0 fL 9.5-13.5 [facility] Platelets Auto (Bld) [#/Vol] Ordered By: Jackson Mcmanus on 10-26-2024 Platelets (Bld) [#/Vol] 332 10 3/uL 150-450 [facility] Prothrombin time (PT)Ordered By: Jackson Mcmanus on 10-26-2024 PT Coag (PPP) [Time] 11.2 s 9.0-11.6 [facility] RBC Auto (Bld) [#/Vol]Ordere d By: Jackson Mcmanus on 10-26-2024 RBC (Bld) [#/Vol] 4.25 10 6/uL Low 4.70-6.10 [facility] Serum or plasma albumin/glob ulin mass ratioOrdered By: Jackson Mcmanus on 10-26-2024 Albumin/Globulin [Mass ratio] 0.8 {ratio} [facility] Serum or plasma anion gap de terminationOrdered By: Jackson Mcmanus on 10-26-2024 Anion gap [Moles/Vol] 13.7 mmol/L [facility] Urine Cultureon 10-26-2024 Bacteria identified Cx Nom (U) <9,000 colonies/ml mixed bacterial skin contaminants 2 Days PERFORMED BY: [place] [address] PATHOLOGIST MACHINE TOOL TECHNICIAN INSTRUCTOR CARSON Werner [facility] Comment on above: Performed By: #### C UU #### [address] Urine cultureOrdered By: Last Mcmanus on 10-26-2024 Bacteria identified Cx Nom (U) 2 Days [facility] Orders Onlyon 10-18-2024 Orders Only [id number] Lani Lizama 1950 M Date Provider Department Center 10/18/2024 [facility] Family History Problem Relation Age of Onset Heart attack Mother Other Father Other Brother Heart attack Maternal Grandmother Heart attack Maternal Grandfather Family Status - Relation Status Age at Mother Father Brother Maternal Grandmother Maternal Grandfather Normal [facility] 36on 10-16-2024 37 Pt needs to cancel h is surgery for 11/11/24 due to an infection and needs to take care of that first. Pt will call back when he is ready to reschedule. Normal [facility] Telephoneon 10-16-2024 Telephone [phone] Lani Lizama 1950 M Date Provider Department Center 10/16/2024 [facility] [place] Family History Problem Relation Age of Onset Heart attack Mother Other Father Other Brother Heart attack Maternal Grandmother Heart attack Maternal Grandfather Family Status - Relation Status Age at Mother Father Brother Maternal Grandmother Maternal Grandfather [facility] Estimated glomerular filtrat ion rate (GFR) non- AmericanOrdered By: Meghan Elizalde on 10-14-2024 GFR/1.73 sq M.predicted among non-blacks MDRD (S/P/Bld) [Vol rate/Area] 34 mL/min/{1.73_m2} Low >=60 mL/min/1.[address] [place] [address] Laboratory - Chemistry and C hemistry - challengeOrdered By: Meghan Elizalde on 10-14-2024 Calcium [Mass/Vol] 8.7 mg/dL 8.5-10.1 [facility] Chloride [Moles/Vol] 110 mmol/L High 98-107 [facility] CO2 [Moles/Vol] 20.6 mmol/L Low 21.0-32.0 [facility] Creatinine [Mass/Vol] 1.97 mg/dL High 0.70-1.30 [facility] GFR/1.73 sq M.predicted MDRD (S/P/Bld) [Vol rate/Area] 41 mL/min/{1.73_m2} Low >=60 mL/min/1.[address] [place] [address] Glucose [Mass/Vol] 160 mg/dL High 74-106 [facility] Potassium [Moles/Vol] 4.4 mmol/L 3.5-5.1 [facility] Sodium [Moles/Vol] 142 mmol/L 136-145 [facility] Urea nitrogen [Mass/Vol] 27.0 mg/dL High 7.0-18.0 [facility] Urea nitrogen/Creatinine [Mass ratio] 13.7 mg/mg [facility] Serum or plasma anion gap de terminationOrdered By: Meghan Elizalde on 10-14-2024 Anion gap [Moles/Vol] 15.8 mmol/L [facility] Erythrocyte distribution wid th Auto (RBC) [Ratio]Ordered By: Meghan Elizalde on 10-13-2024 Erythrocyte distribution width (RBC) [Ratio] 14.8 % 11.0-15.0 [facility] Estimated glomerular filtrat ion rate (GFR) non- AmericanOrdered By: Meghan Elizalde on 10-13-2024 GFR/1.73 sq M.predicted among non-blacks MDRD (S/P/Bld) [Vol rate/Area] 28 mL/min/{1.73_m2} Low >=60 mL/min/1.7 3m 2 [facility] Hematocrit Auto (Bld) [Volum e fraction]Ordered By: Meghan Elizalde on 10-13-2024 Hematocrit (Bld) [Volume fraction] 31.8 % Low 42.0-54.0 [facility] Hemoglobin [Mass/volume] in BloodOrdered By: Meghan Elizalde on 10-13-2024 Hemoglobin (Bld) [Mass/Vol] 10.6 g/dL Low 14.0-18.0 [facility] Laboratory - Chemistry and C hemistry - challengeOrdered By: Meghan Elizalde on 10-13-2024 Calcium [Mass/Vol] 8.7 mg/dL 8.5-10.1 [facility] Chloride [Moles/Vol] 108 mmol/L High 98-107 [facility] CO2 [Moles/Vol] 17.0 mmol/L Low 21.0-32.0 [facility] Creatinine [Mass/Vol] 2.30 mg/dL High 0.70-1.30 [facility] GFR/1.73 sq M.predicted MDRD (S/P/Bld) [Vol rate/Area] 34 mL/min/{1.73_m2} Low >=60 mL/min/1.7 3m 2 [facility] Glucose [Mass/Vol] 167 mg/dL High 74-106 [facility] Potassium [Moles/Vol] 4.3 mmol/L 3.5-5.1 [facility] Sodium [Moles/Vol] 140 mmol/L 136-145 [facility] Urea nitrogen [Mass/Vol] 36.0 mg/dL High 7.0-18.0 [facility] Urea nitrogen/Creatinine [Mass ratio] 15.7 mg/mg [facility] Leukocytes [#/volume] correc soraya for nucleated erythrocytes in Blood by Automated counOrdered By: Meghan Elizalde on 10-13-2024 WBC corrected for nucl RBC Auto (Bld) [#/Vol] 4.9 10 3/uL 4.0-11.0 [facility] MCH Auto (RBC) [Entitic mass ]Ordered By: Meghan Elizalde on 10-13-2024 MCH (RBC) [Entitic mass] 29.4 pg 25.9-34.0 [facility] MCHC Auto (RBC) [Mass/Vol]Or dered By: Meghan Elizalde on 10-13-2024 MCHC (RBC) [Mass/Vol] 33.3 g/dL 29.9-35.2 [facility] MCV Auto (RBC) [Entitic vol] Ordered By: Meghan Elizalde on 10-13-2024 MCV (RBC) [Entitic vol] 88.1 fL 80.0-94.0 [facility] Platelet mean volume Auto (B ld) [Entitic vol]Ordered By: Meghan Elizalde on 10-13-2024 Platelet mean volume (Bld) [Entitic vol] 9.4 fL Low 9.5-13.5 [facility] Platelets Auto (Bld) [#/Vol] Ordered By: Meghan Elizalde on 10-13-2024 Platelets (Bld) [#/Vol] 316 10 3/uL 150-450 [facility] RBC Auto (Bld) [#/Vol]Ordere d By: Meghan Elizalde on 10-13-2024 RBC (Bld) [#/Vol] 3.61 10 6/uL Low 4.70-6.10 [facility] Serum or plasma anion gap de terminationOrdered By: Meghan Elizalde on 10-13-2024 Anion gap [Moles/Vol] 19.3 mmol/L [facility] Basophils Auto (Bld) [#/Vol] Ordered By: Meghan Elizalde on 10-12-2024 Basophils (Bld) [#/Vol] 0.0 10 3/uL 0.0-0.1 [facility] Basophils/100 WBC Auto (Bld) Ordered By: Meghan Elizalde on 10-12-2024 Basophils/100 WBC (Bld) 0.2 % 0.2-2.0 [facility] Eosinophils/100 WBC Auto (Bl d)Ordered By: Meghan Elizalde on 10-12-2024 Eosinophils/100 WBC (Bld) 0.2 % Low 0.9-7.0 [facility] Erythrocyte distribution wid th Auto (RBC) [Ratio]Ordered By: Meghan Elizalde on 10-12-2024 Erythrocyte distribution width (RBC) [Ratio] 14.6 % 11.0-15.0 [facility] Estimated glomerular filtrat ion rate (GFR) non- AmericanOrdered By: Meghan Elizalde on 10-12-2024 GFR/1.73 sq M.predicted among non-blacks MDRD (S/P/Bld) [Vol rate/Area] 23 mL/min/{1.73_m2} Low >=60 mL/min/1.7 3m 2 [facility] Globulin Calc (S) [Mass/Vol] Ordered By: Meghan Elizalde on 10-12-2024 Globulin (S) [Mass/Vol] 4.1 g/dL [facility] Hematocrit Auto (Bld) [Volum e fraction]Ordered By: Meghan Elizalde on 10-12-2024 Hematocrit (Bld) [Volume fraction] 31.8 % Low 42.0-54.0 [facility] Hemoglobin [Mass/volume] in BloodOrdered By: Meghan Elizalde on 10-12-2024 Hemoglobin (Bld) [Mass/Vol] 10.8 g/dL Low 14.0-18.0 [facility] Laboratory - Chemistry and C hemistry - challengeOrdered By: Meghan Elizalde on 10-12-2024 Albumin [Mass/Vol] 2.8 g/dL Low 3.4-5.0 [facility] ALP [Catalytic activity/Vol] 86 U/L 46-116 [facility] ALT [Catalytic activity/Vol] 21 U/L 16-63 [facility] AST [Catalytic activity/Vol] 22 U/L 15-37 [facility] Bilirubin [Mass/Vol] 0.6 mg/dL 0.2-1.0 [facility] Calcium [Mass/Vol] 8.9 mg/dL 8.5-10.1 [facility] Chloride [Moles/Vol] 107 mmol/L 98-107 [facility] CO2 [Moles/Vol] 17.8 mmol/L Low 21.0-32.0 [facility] Creatinine [Mass/Vol] 2.73 mg/dL High 0.70-1.30 [facility] GFR/1.73 sq M.predicted MDRD (S/P/Bld) [Vol rate/Area] 28 mL/min/{1.73_m2} Low >=60 mL/min/1.7 3m 2 [facility] Glucose [Mass/Vol] 159 mg/dL High 74-106 [facility] Potassium [Moles/Vol] 4.3 mmol/L 3.5-5.1 [facility] Protein [Mass/Vol] 6.9 g/dL 6.4-8.2 [facility] Sodium [Moles/Vol] 139 mmol/L 136-145 [facility] Urea nitrogen [Mass/Vol] 45.0 mg/dL High 7.0-18.0 [facility] Urea nitrogen/Creatinine [Mass ratio] 16.5 mg/mg [facility] Laboratory - Hematology and Cell countsOrdered By: Meghan Elizalde on 10-12-2024 Immature granulocytes/100 WBC (Bld) 0.7 % High 0.0-0.5 [facility] Leukocytes [#/volume] correc soraya for nucleated erythrocytes in Blood by Automated counOrdered By: Meghan Elizalde on 10-12-2024 WBC corrected for nucl RBC Auto (Bld) [#/Vol] 5.4 10 3/uL 4.0-11.0 [facility] Lymphocytes Auto (Bld) [#/Vo l]Ordered By: Meghan Elizalde on 10-12-2024 Lymphocytes (Bld) [#/Vol] 0.8 10 3/uL Low 1.2-3.8 [facility] Lymphocytes/100 WBC Auto (Bl d)Ordered By: Meghan Elizalde on 10-12-2024 Lymphocytes/100 WBC (Bld) 15.1 % Low 20.5-60.0 [facility] MCH Auto (RBC) [Entitic mass ]Ordered By: Meghan Elizalde on 10-12-2024 MCH (RBC) [Entitic mass] 30.1 pg 25.9-34.0 [facility] MCHC Auto (RBC) [Mass/Vol]Or dered By: Meghan Elizalde on 10-12-2024 MCHC (RBC) [Mass/Vol] 34.0 g/dL 29.9-35.2 [facility] MCV Auto (RBC) [Entitic vol] Ordered By: Meghan Elizalde on 10-12-2024 MCV (RBC) [Entitic vol] 88.6 fL 80.0-94.0 [facility] Monocytes Auto (Bld) [#/Vol] Ordered By: Meghan Elizalde on 10-12-2024 Monocytes (Bld) [#/Vol] 0.7 10 3/uL 0.3-0.8 [facility] Monocytes/100 WBC Auto (Bld) Ordered By: Meghan Elizalde on 10-12-2024 Monocytes/100 WBC (Bld) 12.7 % High 1.7-12.0 [facility] Neutrophils Auto (Bld) [#/Vo l]Ordered By: Meghan Elizalde on 10-12-2024 Neutrophils (Bld) [#/Vol] 3.8 10 3/uL 1.4-6.5 [facility] Neutrophils/100 WBC Auto (Bl d)Ordered By: Meghan Elizalde on 10-12-2024 Neutrophils/100 WBC (Bld) 71.1 % 43.0-75.0 [facility] No Panel InformationOrdered By: Meghan Elizalde on 10-12-2024 Eosinophils # (Auto) 0.0 10 3/uL 0.0-0.7 [facility] Immature Granulocyte # (Auto) 0.04 10 3/uL High 0.00-0.03 [facility] Platelet mean volume Auto (B ld) [Entitic vol]Ordered By: Meghan Elizalde on 10-12-2024 Platelet mean volume (Bld) [Entitic vol] 9.5 fL 9.5-13.5 [facility] Platelets Auto (Bld) [#/Vol] Ordered By: Meghan Elizalde on 10-12-2024 Platelets (Bld) [#/Vol] 242 10 3/uL 150-450 [facility] RBC Auto (Bld) [#/Vol]Ordere d By: Meghan Elizalde on 10-12-2024 RBC (Bld) [#/Vol] 3.59 10 6/uL Low 4.70-6.10 [facility] Serum or plasma albumin/glob ulin mass ratioOrdered By: Meghan Elizalde on 10-12-2024 Albumin/Globulin [Mass ratio] 0.7 {ratio} [facility] Serum or plasma anion gap de terminationOrdered By: Meghan Elizalde on 10-12-2024 Anion gap [Moles/Vol] 18.5 mmol/L [facility] Basophils Auto (Bld) [#/Vol] Ordered By: Lyssa Marker on 10-11-2024 Basophils (Bld) [#/Vol] 0.0 10 3/uL 0.0-0.1 [facility] Basophils/100 WBC Auto (Bld) Ordered By: Lyssa Marker on 10-11-2024 Basophils/100 WBC (Bld) 0.1 % Low 0.2-2.0 [facility] Eosinophils/100 WBC Auto (Bl d)Ordered By: Lyssa Marker on 10-11-2024 Eosinophils/100 WBC (Bld) 0.6 % Low 0.9-7.0 [facility] Erythrocyte distribution wid th Auto (RBC) [Ratio]Ordered By: Lyssa Marker on 10-11-2024 Erythrocyte distribution width (RBC) [Ratio] 14.6 % 11.0-15.0 [facility] Estimated glomerular filtrat ion rate (GFR) non- AmericanOrdered By: Lyssa Marker on 10-11-2024 GFR/1.73 sq M.predicted among non-blacks MDRD (S/P/Bld) [Vol rate/Area] 19 mL/min/{1.73_m2} Low >=60 mL/min/1.7 3m 2 [facility] Globulin Calc (S) [Mass/Vol] Ordered By: Lyssa Marker on 10-11-2024 Globulin (S) [Mass/Vol] 4.9 g/dL [facility] Hematocrit Auto (Bld) [Volum e fraction]Ordered By: Lyssa Marker on 10-11-2024 Hematocrit (Bld) [Volume fraction] 36.7 % Low 42.0-54.0 [facility] Hemoglobin [Mass/volume] in BloodOrdered By: Lyssa Marker on 10-11-2024 Hemoglobin (Bld) [Mass/Vol] 12.4 g/dL Low 14.0-18.0 [facility] Iron binding capacity [Mass/ volume] in Serum or PlasmaOrdered By: Meghan Elizalde on 10-11-2024 Iron binding capacity [Mass/Vol] 231.0 ug/dL Low 250.0-450. 0 [facility] Iron saturation [Mass Fracti on] in Serum or PlasmaOrdered By: Meghan Elizalde on 10-11-2024 Iron saturation [Mass fraction] 12.1 % [facility] Laboratory - Chemistry and C hemistry - challengeOrdered By: Lyssa Marker on 10-11-2024 Albumin [Mass/Vol] 3.3 g/dL Low 3.4-5.0 [facility] ALP [Catalytic activity/Vol] 108 U/L 46-116 [facility] [facility] ALT [Catalytic activity/Vol] 26 U/L 16-63 [facility] AST [Catalytic activity/Vol] 27 U/L 15-37 [facility] Bilirubin [Mass/Vol] 0.8 mg/dL 0.2-1.0 [facility] Calcium [Mass/Vol] 9.4 mg/dL 8.5-10.1 [facility] Chloride [Moles/Vol] 102 mmol/L 98-107 [facility] CO2 [Moles/Vol] 22.8 mmol/L 21.0-32.0 [facility] Creatinine [Mass/Vol] 3.23 mg/dL High 0.70-1.30 [facility] GFR/1.73 sq M.predicted MDRD (S/P/Bld) [Vol rate/Area] 23 mL/min/{1.73_m2} Low >=60 mL/min/1.7 3m 2 [facility] Glucose [Mass/Vol] 139 mg/dL High 74-106 [facility] Lactate [Moles/Vol] 1.3 mmol/L 0.4-2.0 [facility] Magnesium [Mass/Vol] 2.2 mg/dL 1.8-2.4 [facility] Natriuretic peptide B (Bld) [Mass/Vol] 2625.0 pg/mL Critically high <=900.0 [facility] Comment on above: RESULTS CALLED TO SULEMA LUNA RN @BY Chelsey Velazquez [id number] Potassium [Moles/Vol] 4.2 mmol/L 3.5-5.1 [facility] Protein [Mass/Vol] 8.2 g/dL 6.4-8.2 [facility] Sodium [Moles/Vol] 137 mmol/L 136-145 [facility] Urea nitrogen [Mass/Vol] 48.0 mg/dL High 7.0-18.0 [facility] Urea nitrogen/Creatinine [Mass ratio] 14.9 mg/mg [facility] Bilirubin Ql (U) Negative NEGATIVE [facility] Glucose (U) [Mass/Vol] mg/dL Abnormal NEGATIVE [facility] Ketones Ql (U) TRACE mg/dL Abnormal NEGATIVE [facility] pH (U) 6.0 [pH] 5.0-9.0 [facility] Specific gravity (U) [Rel density] 1.025 1.005-1.02 5 [facility] Urobilinogen Qn (U) 1.0 {Luisito'U}/dL 0.2-1.0 [facility] Laboratory - Chemistry and C hemistry - challengeOrdered By: Meghan Elizalde on 10-11-2024 Iron [Mass/Vol] 28.0 ug/dL Low 65.0-175.0 [facility] Laboratory - Hematology and Cell countsOrdered By: Lyssa Marker on 10-11-2024 Immature granulocytes/100 WBC (Bld) 0.7 % High 0.0-0.5 [facility] Laboratory - Specimen inform ationOrdered By: Lyssa Marker on 10-11-2024 Appearance (U) CLEAR CLEAR [facility] Color (U) YELLOW YELLOW [facility] Laboratory - UrinalysisOrder ed By: Lyssa Marker on 10-11-2024 Amorphous sediment LM Ql (Urine sed) RARE [facility] Leukocyte esterase Test strip Ql (U) SMALL Abnormal NEGATIVE [facility] Mucus Ql (Urine sed) NONE SEEN NONE SEEN [facility] Nitrite Ql (U) Negative NEGATIVE [facility] Protein Ql (U) >=300 mg/dL Abnormal NEG/TRACE [facility] Leukocytes [#/volume] correc soraya for nucleated erythrocytes in Blood by Automated counOrdered By: Lyssa Marker on 10-11-2024 WBC corrected for nucl RBC Auto (Bld) [#/Vol] 6.9 10 3/uL 4.0-11.0 [facility] Lymphocytes Auto (Bld) [#/Vo l]Ordered By: Lyssa Marker on 10-11-2024 Lymphocytes (Bld) [#/Vol] 1.0 10 3/uL Low 1.2-3.8 [facility] Lymphocytes/100 WBC Auto (Bl d)Ordered By: Lyssa Marker on 10-11-2024 Lymphocytes/100 WBC (Bld) 14.0 % Low 20.5-60.0 [facility] MCH Auto (RBC) [Entitic mass ]Ordered By: Lyssa Marker on 10-11-2024 MCH (RBC) [Entitic mass] 30.0 pg 25.9-34.0 [facility] MCHC Auto (RBC) [Mass/Vol]Or dered By: Lyssa Marker on 10-11-2024 MCHC (RBC) [Mass/Vol] 33.8 g/dL 29.9-35.2 [facility] MCV Auto (RBC) [Entitic vol] Ordered By: Lyssa Marker on 10-11-2024 MCV (RBC) [Entitic vol] 88.6 fL 80.0-94.0 [facility] Monocytes Auto (Bld) [#/Vol] Ordered By: Lyssa Marker on 10-11-2024 Monocytes (Bld) [#/Vol] 0.8 10 3/uL 0.3-0.8 [facility] Monocytes/100 WBC Auto (Bld) Ordered By: Lyssa Marker on 10-11-2024 Monocytes/100 WBC (Bld) 11.0 % 1.7-12.0 [facility] Neutrophils Auto (Bld) [#/Vo l]Ordered By: Lyssa Marker on 10-11-2024 Neutrophils (Bld) [#/Vol] 5.1 10 3/uL 1.4-6.5 [facility] Neutrophils/100 WBC Auto (Bl d)Ordered By: Lyssa Marker on 10-11-2024 Neutrophils/100 WBC (Bld) 73.6 % 43.0-75.0 [facility] No Panel InformationOrdered By: Meghan Elizalde on 10-11-2024 Miscellaneous Test COMMENT . [facility] Comment on above: Test Ordered: [id number] FerritinFerritin 834 [H ] ng/mL CB Reference Range: 30-400Performed at: - [facility] [address] [id number] Director: Kwaku Park PhD, Phone: [phone] No Panel InformationOrdered By: Lyssa Marker on 10-11-2024 Eosinophils # (Auto) 0.0 10 3/uL 0.0-0.7 [facility] Immature Granulocyte # (Auto) 0.05 10 3/uL High 0.00-0.03 [facility] Troponin I High Sensitivity 18.2 pg/mL 4.0-76.1 [facility] Comment on above: CUT-OFF POINTS HAVE BEEN ESTABLISHED BASED ON THE FOURTHUNIVERSAL DEFINITION OF MYOCARDIAL INFARCTION. THE UPPERREFERENCE LIMIT (URL) OF TROPONIN, DEFINED THE 99THPERCENTILE OF cTnI DISTRIBUTION IN A REFERENCE POPULATION,HAS BEEN CONFIRMED THE DECISION THRESHOLD FOR MIDIAGNOSIS.99TH PERCENTILE = 76.2 PG/MLNOTE: HIGH-SENSITIVITY TROPONIN ASSAY IS NOT INTENDED TO BEUSED IN ISOLATION BUT SHOULD BE INTERPRETED IN CONJUNCTIONWITH OTHER DIAGNOSTIC AND CLINICAL INFORMATION. Urine Bacteria MODERATE #/HPF Abnormal NONE SEEN [facility] Urine Culture Reflexed YES-[facility] Urine Occult Blood LARGE Abnormal NEGATIVE [facility] Urine Other Casts NONE SEEN #/LPF NONE SEEN [facility] Urine Other Crystals Seen #/HPF Abnormal None Seen [facility] Urine RBC NONE SEEN #/HPF 0-2 [facility] Urine Squamous Epithelial Cells FEW #/LPF Abnormal NONE/RARE [facility] Urine WBC 75-100 #/HPF Abnormal NONE SEEN [facility] Platelet mean volume Auto (B ld) [Entitic vol]Ordered By: Lyssa Marker on 10-11-2024 Platelet mean volume (Bld) [Entitic vol] 9.3 fL Low 9.5-13.5 [facility] Platelets Auto (Bld) [#/Vol] Ordered By: Lyssa Marker on 10-11-2024 Platelets (Bld) [#/Vol] 253 10 3/uL 150-450 [facility] RBC Auto (Bld) [#/Vol]Ordere d By: Lyssa Marker on 10-11-2024 RBC (Bld) [#/Vol] 4.14 10 6/uL Low 4.70-6.10 [facility] Serum or plasma albumin/glob ulin mass ratioOrdered By: Lyssa Marker on 10-11-2024 Albumin/Globulin [Mass ratio] 0.7 {ratio} [facility] Serum or plasma anion gap de terminationOrdered By: Lyssa Marker on 10-11-2024 Anion gap [Moles/Vol] 16.4 mmol/L [facility] Urine Cultureon 10-11-2024 Bacteria identified Cx Nom (U) ORGANISM: Serratia marcescens (O:SERMAR) [place] Count <10,000 ORGANISM: Klebsiella oxytoca (O:KLEOXY) [place] Count >100,000 Aerobic MALCOLM Charge (NMIC56) SUSCEPTIBILITY ORGANISM: O:SERMAR ANTIBIOTIC INTERPRETATION MALCOLM Amikacin S <16 Aztreonam I <4 Cefepime S <2 Ceftazidime I <1 Ceftazidime/Avibactam S <4 Ceftolozane/Tazobactam S <2 Ceftriaxone I <1 Ciprofloxacin S <0.25 Ertapenem S <0.5 Gentamicin S <2 Levofloxacin S <0.5 Meropenem S <1 Meropenem/Vaborbactam S <2 Piperacillin/Tazobactam I <8 Tetracycline R >8 Tigecycline S <2 Tobramycin S <2 Trimethoprim/Sulfamethoxaz ole S <0.5 Aerobic MALCOLM Charge (NMIC56) SUSCEPTIBILITY ORGANISM: O:KLEOXY ANTIBIOTIC INTERPRETATION MALCOLM Amikacin S <16 Amoxacillin/K Clavulanate S <8 Ampicillin/Sulbactam S <4 Aztreonam S <4 Cefazolin S <2 Cefepime S <2 Ceftazidime S <1 Ceftazidime/Avibactam S <4 Ceftolozane/Tazobactam S <2 Ceftriaxone S <1 Cefuroxime S <4 Ciprofloxacin S <0.25 Ertapenem S <0.5 Gentamicin S <2 Levofloxacin S <0.5 Meropenem S <1 Meropenem/Vaborbactam S <2 Nitrofurantoin S <32 Piperacillin/Tazobactam S <8 Tetracycline S <4 Tigecycline S <2 Tobramycin S <2 Trimethoprim/Sulfamethoxaz ole S <0.5 S = SUSCEPTIBLE I = INTERMEDIATE R = RESISTANT BLANK = DATA NOT AVAILABLE, OR DRUG NOT ADVISABLE OR TESTED R* = RESISTANCE DUE TO EXTENDED SPECTRUM BETA-LACTAMASES ESBL = EXTENDED SPECTRUM BETA-LACTAMASE TFG = THYMIDINE-DEPENDENT STRAIN JALIL = BETA-LACTAMASE POSITIVE IB = INDUCIBLE BETA-LACTAMASE. APPEARS IN PLACE OF 'S' WITH SPECIES KNOWN TO POSSESS INDUCIBLE BETA-LACTAMASES. POTENTIALLY THEY MAY BECOME RESISTANT TO ALL B-LACTAM DRUGS. PERFORMED BY: [place] [id number] PATHOLOGIST MACHINE TOOL TECHNICIAN INSTRUCTOR CARSON ADAMES M.D. Normal [facility] Comment on above: Performed By: #### C UU #### [place] [id number] [facility] 36on 10-09-2024 36 Called and spoke to patient - advised Dr. Mcmanus will prescribe oxybutin - patient verbalized understanding. Advised patient needs scheduled for another TURBT restaging in 6 weeks. Scheduled for 11/11/24 [facility] 36on 10-08-2024 36 Since catheter has b [...] with his response. Pt verbalized understanding. Normal [facility] Office Visiton 10-08-2024 Follow-up visit [id number] Lani Lizama 1950 M Date Provider Department Center 10/08/2024 271-PINKY BISHOP CARD [facility] Family History Problem Relation Age of Onset Heart attack Mother Other Father Other Brother Heart attack Maternal Grandmother Heart attack Maternal Grandfather Family Status - Relation Status Age at Mother Father Brother Maternal Grandmother Maternal Grandfather Level of Service:47335 SD OFFICE/OUTPATIENT ESTABLISHED LOW MDM 20 MIN Normal [facility] HISTOLOGY - TISSUE EXAMon LAB AP CASE REPORT Normal [facility] Comment on above: Order Comment: Pre-o p diagnosis:Lesion of bladder [N32.9] Result Comment: Surg ical Pathology Case: [id number] Authorizing Provider: Last Mcmanus MD Collected: 09/29/2024 1432 Ordering Location: [facility] Main Operating Room Received: 09/29/2024 2964 Pathologist: Kevin Dawson MD Specimen: Urinary Bladder, Bladder Tumor Performed By: #### L [id number] #### [facility] [[email or web address] LAB ([facility]) [address] [place] [address] LAB AP CLINICAL INFORMATION [facility] Comment on above: Order Comment: Pre-o p diagnosis:Lesion of bladder [N32.9] Result Comment: Post -Op Diagnoses N32.9 - Lesion of bladder [ICD-10-CM] Performed By: #### L AB17 #### [facility] [[email or web address] LAB ([facility]) [address] [place] [address] LAB AP DIAGNOSIS COMMENT This case was reviewed in intradepartmental consensus with agreement of the diagnosis. [facility] Comment on above: Order Comment: Pre-o p diagnosis:Lesion of bladder [N32.9] Performed By: #### L AB17 #### [facility] [[email or web address] LAB ([facility]) [address] [place] [address] LAB AP GROSS DESCRIPTION [facility] Comment on above: Order Comment: Pre-o p diagnosis:Lesion of bladder [N32.9] Result Comment: A. U rinary Bladder. The specimen is received in formalin labeled Lani Mega and bladder tumor. It consists of a 2.7 x 2.5 x 0.6 cm aggregate of red-pink to vázquez-brown, rubbery, shaggy fragments of soft tissue. The specimen is entirely submitted in 3 cassettes. Sangeetha Muro, Pathologists' Predatory Game Hunter student Hugo Suárez, Pathologists' Predatory Game Hunter Performed By: #### L AB17 #### [facility] [[email or web address] LAB ([facility]) [address] [place] [address] LAB AP MICROSCOPIC DESCRIPTION Microscopic examination performed. [facility] Comment on above: Order Comment: Pre-o p diagnosis:Lesion of bladder [N32.9] Performed By: #### L AB17 #### [facility] [[email or web address] LAB ([facility]) [address] [place] [address] LAB AP PRELIMINARY DIAGNOSIS [facility] Comment on above: Order Comment: Pre-o p diagnosis:Lesion of bladder [N32.9] Performed By: #### L AB17 #### [facility] [[email or web address] LAB ([facility]) [address] [place] [address] LAB AP REPORT FINAL DIAGNOSIS NARRATIVE Normal [facility] Comment on above: Order Comment: Pre-o p diagnosis:Lesion of bladder [N32.9] Result Comment: A. B ladder tumor, transurethral resection: - Invasive high-grade papillary urothelial carcinoma. - Small fragments of muscularis propria present, uninvolved by neoplasm. - See synoptic report. at 1104 EDT Performed By: #### L AB17 #### [facility] [[email or web address] LAB ([facility]) [address] [place] [address] LAB AP SYNOPTIC CHECKLIST [facility] Comment on above: Order Comment: Pre-o [...] Present in specimen Performed By: #### L AB17 #### [facility] [[email or web address] LAB ([facility]) [address] [place] [address] [facility] 09-29-2024 ------ -- Attestation signed by Last Mcmanus MD at [...] an additional personal documentation from me. -- Interval update History and physical from 09/25/24 [...] the plan. Marquis Baltazar MD 09/29/2024 Normal [facility] NON-MAGISTRATE ASSISTANT CYTOLOGY - CELLULAR EXAMon 09-29-2024 LAB AP CASE REPORT Normal [facility] Comment on above: Order Comment: Pre-o p diagnosis:Lesion of bladder [N32.9] Result Comment: Non- gynecologic Cytology Case: [id number] Authorizing Provider: Last Mcmanus MD Collected: 09/29/2024 1415 Ordering Location: [facility] Main Operating Room Received: 09/30/2024 0804 Pathologist: Omayra Sullivan MD Specimen: Urine Performed By: #### L AB13 ####[facility] [[email or web address]] LAB (BEAKER)[address] [place] [address] LAB AP CLINICAL INFORMATION Normal [facility] Comment on above: Order Comment: Pre-o p diagnosis:Lesion of bladder [N32.9] Result Comment: Post -Op Diagnoses N32.9 - Lesion of bladder [ICD-10-CM] Performed By: #### L AB13 ####[facility] [[email or web address]] LAB (BEAKER)[address] [place] [address] LAB AP DIAGNOSIS COMMENT See also concurrent surgical case, [id number]. [facility] Comment on above: Order Comment: Pre-o p diagnosis:Lesion of bladder [N32.9] Performed By: #### L AB13 ####[facility] [[email or web address]] LAB (BEAKER)[address] [place] [address] LAB AP GROSS DESCRIPTION [facility] Comment on above: Order Comment: Pre-o p diagnosis:Lesion of bladder [N32.9] Result Comment: 80 m L clear, yellow fluid Performed By: #### L AB13 ####[facility] [[email or web address] LAB (BEAKER)[address] [facility] [place] [address] LAB AP REPORT FINAL DIAGNOSIS NARRATIVE [facility] Comment on above: Order Comment: Pre-o p diagnosis:Lesion of bladder [N32.9] Result Comment: Val gaitan, cystoscopic: - Atypical urothelial cells. - Marked acute inflammation. 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 at 1805 EDT Performed By: #### L AB13 ####[facility] [[email or web address] LAB (BE[facility]ER)[address] [facility] [place] [address] OPNOTEon 09-29-2024 OPNOTE TURBT (TRANSURETHRAL RESECTION OF BLADDER TUMOR) Operative Note Date: 09/29/2024 Location: [facility] OR Name: Lani Lizama, : 1950, Diagnosis Pre-op Diagnosis * Lesion of bladder [N32.9] Post-op Diagnosis * Lesion of bladder [N32.9] Procedures TURBT (TRANSURETHRAL RESECTION OF BLADDER TUMOR) 51218 - SD CYSTOURETHROSCOPY W/DEST &/RMVL MED BLADDER MARIO Surgeons [...] Frozen? Priority Lab ID A Urine Urine NON-MAGISTRATE ASSISTANT CYTOLOGY - CELLULAR EXAM Last Mcmanus MD 09/29/24 1415 B Urinary Bladder Tissue HISTOLOGY - TISSUE EXAM Last Mcmanus MD 09/29/24 1432 No [id number] Description: Bladder Tumor Staff: Transition Assistant: Destiney Whitney RN; Juli Byrnes; Ani Floyd [...] has been actively warmed in preoperative area. Preoperative antibiotics have been ordered and given within [...] muscle into the specimen. We then obtained adequate hemostasis. is concluded the case. He tolerated the procedure well. We decided to place a rg catheter in place. We will still postop send need to be discharged Rg catheter placed instructed to follow-up in 1 to 2 days for void trial Plan/Follow up: Patient will follow-up in 1 to 2 days for void trial Patient will follow-up in 2 to 3 weeks for discussion of performing Findings: 2.5 cm mass along the left lateral wall 16 Micronesian Rg catheter placed Gemcitabine to perform given postop. Complications: None; patient tolerated the procedure well. Disposition: PACU - hemodynamically stable. Condition: stable Obi Ekjaha . Procedure Attestation Level of Attending Supervision for Procedure I was present for the entire procedure Normal [facility] POCT GLUCOSE METER UNSOLICIT ED RESULTSon 09-29-2024 Glucose [Mass/Vol] 143 mg/dL High 70-105 [facility] Comment on above: Order Comment: Waive d Testing in the ED is performed under the ED CLIA certificate #[id number]. Result Comment: [email or web address] [email or web address] Performed By: #### L [id number] #### [facility] ([facility]) [address] [place] [address] Glucose [Mass/Vol] 211 mg/dL High 70-105 [facility] Comment on above: Order Comment: Waive d Testing in the ED is performed under the ED CLIA certificate #[id number]. Result Comment: jaiden [email or web address] Performed By: #### L [id number] #### [facility] [[email or web address]] LAB (AKER) [address] [place] [address] Glucose mean value [Mass/vol ume] in Blood Estimated from glycated hemoglobinOrdered By: Outside Provider on 09-26-2024 Average glucose Estimated from glycated hemoglobin (Bld) [Mass/Vol] 166 mg/dL [facility] Hemoglobin A1c percentageOrd ered By: Outside Provider on 09-26-2024 HbA1c (Bld) [Mass fraction] 7.4 % High 4.5-6.2 [facility] Comment on above: ADA RECOMMENDED LIMI T 4.0 - 6.0ADA THERAPEUTIC TARGET < 7.0ACTION SUGGESTED> 7.0 HPon 09-25-2024 HP Pre-Anesthesia Clini c 09/25/24 Pt presents for Pre Anesthesia Clinic visit with son. Pt is scheduled 09/29/[address] Mcmanus to under go procedure: TURBT under General on 09/29/24. Harley Crespo, [address] [facility] [address] [facility]/pharmacy #[id number] - [place], [place] - [address] [facility] [address] [facility] [address] [facility] - [place], [place] - [address] [place] [address] [place] [address] [facility] [address] Subjective Vitals: 09/25/24 0856 BP: 153/74 Pulse: 80 Resp: 18 Temp: 36.3 ???C (97.4 ???F) SpO2: 98% Allergies[1] Medication Documentation Review Audit Reviewed by Lavern Mi MA (Rotary Swaging Machine Operator) on 08/28/24 at 0832 Medication Order Taking? Sig Documenting Provider Last Dose Status ALPRAZolam (Xanax) 0.5 mg tablet [id number] Take 1 tablet by mouth in the morning, afternoon, and at bedtime. Historical ProviderMD Active amLODIPine (Norvasc) 5 mg tablet [id number] Take 1 tablet (5 mg) by mouth in the morning for 30 doses. Graeme Sorensen MD Active aspirin 81 mg chewable tablet [id number] Chew 1 tablet every day by oral route. Historical MD Davian Active cholecalciferol (Vitamin D3) 25 MCG (1000 units) tablet [id number] Take 1,000 Units by mouth in the morning. Racquel Marcelo MD Active clopidogrel (Plavix) 75 mg tablet [id number] Take 1 tablet by mouth in the morning. Racquel Marcelo MD Active docusate sodium (Colace) 100 mg capsule [id number] Take 100 mg by mouth in the morning. Racquel Marcelo MD Active empagliflozin (Jardiance) 10 mg [id number] Take 1 tablet every day by oral route. Racquel ProviderMD Active insulin aspart (NovoLOG) 100 unit/mL injection vial [id number] Inject 10 Units under the skin with breakfast, with lunch, and with evening meal. Sliding scale Historical ProviderMD Active insulin detemir (Levemir) 100 unit/mL injection [id number] Inject 5 Units under the skin two times daily. Historical ProviderMD Active isosorbide mononitrate ER (Imdur) 60 mg 24 hr tablet [id number] Take 1 tablet (60 mg) by mouth 2 times daily. Carlos A Duarte MD 08/20/24 235 metoprolol succinate XL (Toprol-XL) 50 mg 24 hr tablet [id number] Take 3 tablets (150 mg) by mouth in the morning for 97 doses. Do not crush or chew. Aramis Sellers MD 08/20/242358 nitroglycerin (Nitrostat) 0.[id number] 1 TABLET UNDER TONGUE EVERY 5 MINS, UP TO 3 DOSES NEEDED FOR CHEST PAIN Pinky Bishop MD Active pantoprazole (ProtoNix) 40 mg EC tablet [id number] TAKE 1 TABLET BY MOUTH DAILY ON AN EMPTY STOMACH FOLLOWED BY BREAKFAST 30 MINUTES AFTER Historical ProviderMD Active ranolazine (Ranexa) 500 mg 12 hr tablet [id number] Take 1 tablet (500 mg) by mouth two times daily. Do not crush, chew, or split. Pinky Bishop MD Active rosuvastatin (Crestor) 40 mg tablet [id number] TAKE 1 TABLET BY MOUTH AT BEDTIME Kevin Jacobs MD Active spironolactone (Aldactone) 25 mg tablet [id number] Take 1 tablet (25 mg) by mouth in the morning. Pinky Bishop MD Active thiamine (Vitamin B-1) 100 mg tablet [id number] Take 100 mg by mouth every other day. Historical ProviderMD Active thiamine (Vitamin B-1) 250 mg tablet [id number] Take 250 mg by mouth every other day. Historical ProviderMD Active Immunization History Administered Date(s) Administered Influenza Whole 01/19/2008 Influenza, High Dose Seasonal, Preservative Free 01/16/2017 Influenza, Seasonal, Quadrivalent, Adjuvanted 12/15/2021 Influenza, injectable, quadrivalent, preservative free 11/30/2016 Influenza, seasonal, injectable 12/13/2010, 01/23/2012 Influenza, trivalent, adjuvanted 01/17/2018 Novel [id number]-[id number], preservative-free 01/27/2009 Pfizer SARS-CoV-2 Vaccination 05/30/2020, 06/21/2020, [...] Pt reports had recent labs done at [facility]. PAC - RN to obtain results of preop labs. EKG on 08/13/24 : Biventricular Pacer Patient was recently hospitalized on 08/14/24 with NSTEMI and ideally needed coronary angiogram, however patient referred to be discharged. Medications were adjusted particular Norvasc added to his regimen and he was discharged on (more content not included)... [facility] Orders Onlyon 09-25-2024 Orders Only [id number] Lani Lizama 1950 M Date Provider Department Center 09/25/2024 ALEX HODGES [facility] C Family History Problem Relation Age of Onset Heart attack Mother Other Father Other Brother Heart attack Maternal Grandmother Heart attack Maternal Grandfather Family Status - Relation Status Age at Mother Father Brother Maternal Grandmother Maternal Grandfather [facility] Orders Only [id number] Lani Lizama 1950 M Date Provider Department Center 09/25/2024 Iliana-LATONYA RAMESH [facility] C Family History Problem Relation Age of Onset Heart attack Mother Other Father Other Brother Heart attack Maternal Grandmother Heart attack Maternal Grandfather Family Status - Relation Status Age at Mother Father Brother Maternal Grandmother Maternal Grandfather [facility] Orders Only [id number] Lani Lizama 1950 M Date Provider Department Center 09/25/2024 ROCIO [facility] Family History Problem Relation Age of Onset Heart attack Mother Other Father Other Brother Heart attack Maternal Grandmother Heart attack Maternal Grandfather Family Status - Relation Status Age at Mother Father Brother Maternal Grandmother Maternal Grandfather [facility] Orders Only [id number] Lani Lizama 1950 [facility] Provider Department [place] 09/25/2024 ROCIO HERNANDEZ [facility] PREOP [facility] C Family History Problem Relation Age of Onset Heart attack Mother Other Father Other Brother Heart attack Maternal Grandmother Heart attack Maternal Grandfather Family Status - Relation Status Age at Mother Father Brother Maternal Grandmother Maternal Grandfather [facility] Pre-Admission Testingon 08-31 Pre-Admission Testing [id number] [place] Lizama A 1950 [facility] Provider Department [place] 09/25/2024 [id number] C Family History Problem Relation Age of Onset Heart attack Mother Other Father Other Brother Heart attack Maternal Grandmother Heart attack Maternal Grandfather Family Status - Relation Status Age at Mother Father Brother Maternal Grandmother Maternal Grandfather [facility] 36on 09-21-2024 36 Patient would like p reop lab order to be faxed to [employer] fax#[phone]. Thank you This phone message was created by the Ambulatory float staff. If you need manager technical support follow up regarding this patient, please make your appropriate clinic staff member aware. Thank you. Normal [facility] Activated partial thrombopla stin time (aPTT) in platelet poor plasma by coagulation aOrdered By: Jackson Mcmanus on 09-21-2024 aPTT Coag (PPP) [Time] 27.6 s 22.3-36.2 [facility] Basophils Auto (Bld) [#/Vol] Ordered By: Jackson Mcmanus on 09-21-2024 Basophils (Bld) [#/Vol] 0.1 10 3/uL 0.0-0.1 [facility] Basophils/100 WBC Auto (Bld) Ordered By: Jackson Mcmanus on 09-21-2024 Basophils/100 WBC (Bld) 0.6 % 0.2-2.0 [facility] Eosinophils/100 WBC Auto (Bl d)Ordered By: Jackson Mcmanus on 09-21-2024 Eosinophils/100 WBC (Bld) 3.4 % 0.9-7.0 [facility] Erythrocyte distribution wid th Auto (RBC) [Ratio]Ordered By: Jackson Mcmanus on 09-21-2024 Erythrocyte distribution width (RBC) [Ratio] 14.0 % 11.0-15.0 [facility] Estimated glomerular filtrat ion rate (GFR) non- AmericanOrdered By: Viky Kwong on 09-21-2024 GFR/1.73 sq M.predicted among non-blacks MDRD (S/P/Bld) [Vol rate/Area] 34 mL/min/{1.73_m2} Low >=60 mL/min/1.7 3m 2 [facility] Globulin Calc (S) [Mass/Vol] Ordered By: Viky Kwong on 09-21-2024 Globulin (S) [Mass/Vol] 3.7 g/dL [facility] Hematocrit Auto (Bld) [Volum e fraction]Ordered By: Jackson Mcmanus on 09-21-2024 Hematocrit (Bld) [Volume fraction] 41.0 % Low 42.0-54.0 [facility] Hemoglobin [Mass/volume] in BloodOrdered By: Jackson Mcmanus on 09-21-2024 Hemoglobin (Bld) [Mass/Vol] 13.5 g/dL Low 14.0-18.0 [facility] INR in Platelet poor plasma by Coagulation assayOrdered By: Jackson Mcmanus on 09-21-2024 INR Coag (PPP) [Relative time] 1.06 {INR} [facility] Comment on above: DESIRED INR:2.0-3.0 CONDITIONS NOT LISTED BELOW2.5-3.5 FOR PROSTHETIC HEART VALVE REPLACEMENT2.5-3.5 RECURRENT THROMBOSIS Laboratory - Chemistry and C hemistry - challengeOrdered By: Viky Kwong on 09-21-2024 Albumin [Mass/Vol] 3.7 g/dL 3.4-5.0 [facility] ALP [Catalytic activity/Vol] 135 U/L High 46-116 [facility] ALT [Catalytic activity/Vol] 25 U/L 16-63 [facility] AST [Catalytic activity/Vol] 19 U/L 15-37 [facility] Bilirubin [Mass/Vol] 0.6 mg/dL 0.2-1.0 [facility] Calcium [Mass/Vol] 8.9 mg/dL 8.5-10.1 [facility] Chloride [Moles/Vol] 104 mmol/L 98-107 [facility] CO2 [Moles/Vol] 26.0 mmol/L 21.0-32.0 [facility] Creatinine [Mass/Vol] 1.95 mg/dL High 0.70-1.30 [facility] GFR/1.73 sq M.predicted MDRD (S/P/Bld) [Vol rate/Area] 41 mL/min/{1.73_m2} Low >=60 mL/min/1.7 3m 2 [facility] Glucose [Mass/Vol] 348 mg/dL High 74-106 [facility] Potassium [Moles/Vol] 4.5 mmol/L 3.5-5.1 [facility] Protein [Mass/Vol] 7.4 g/dL 6.4-8.2 [facility] Sodium [Moles/Vol] 140 mmol/L 136-145 [facility] Urea nitrogen [Mass/Vol] 30.0 mg/dL High 7.0-18.0 [facility] Urea nitrogen/Creatinine [Mass ratio] 15.4 mg/mg [facility] Laboratory - Hematology and Cell countsOrdered By: Jackson Mcmanus on 09-21-2024 Immature granulocytes/100 WBC (Bld) 0.4 % 0.0-0.5 [facility] Leukocytes [#/volume] correc soraya for nucleated erythrocytes in Blood by Automated counOrdered By: Jackson Mcmanus on 09-21-2024 WBC corrected for nucl RBC Auto (Bld) [#/Vol] 8.5 10 3/uL 4.0-11.0 [facility] Lymphocytes Auto (Bld) [#/Vo l]Ordered By: Jacksondick Mcmanus on 09-21-2024 Lymphocytes (Bld) [#/Vol] 1.7 10 3/uL 1.2-3.8 [facility] Lymphocytes/100 WBC Auto (Bl d)Ordered By: Jacksondick Bonillaa on 09-21-2024 Lymphocytes/100 WBC (Bld) 20.1 % Low 20.5-60.0 [facility] MCH Auto (RBC) [Entitic mass ]Ordered By: Jacksondick Bonillaa on 09-21-2024 MCH (RBC) [Entitic mass] 29.7 pg 25.9-34.0 [facility] MCHC Auto (RBC) [Mass/Vol]Or dered By: Jacksonjose Bonillaa on 09-21-2024 MCHC (RBC) [Mass/Vol] 32.9 g/dL 29.9-35.2 [facility] MCV Auto (RBC) [Entitic vol] Ordered By: Jacksondick Bonillaa on 09-21-2024 MCV (RBC) [Entitic vol] 90.1 fL 80.0-94.0 [facility] Monocytes Auto (Bld) [#/Vol] Ordered By: Jacksonjose Causeynna on 09-21-2024 Monocytes (Bld) [#/Vol] 0.7 10 3/uL 0.3-0.8 [facility] Monocytes/100 WBC Auto (Bld) Ordered By: Jacksonjose Bonillaa on 09-21-2024 Monocytes/100 WBC (Bld) 7.8 % 1.7-12.0 [facility] Neutrophils Auto (Bld) [#/Vo l]Ordered By: Jackson Ekjaha on 09-21-2024 Neutrophils (Bld) [#/Vol] 5.7 10 3/uL 1.4-6.5 [facility] Neutrophils/100 WBC Auto (Bl d)Ordered By: Jacksondick Bonillaa on 09-21-2024 Neutrophils/100 WBC (Bld) 67.7 % 43.0-75.0 [facility] No Panel InformationOrdered By: Jackson Mcmanus on 09-21-2024 Eosinophils # (Auto) 0.3 10 3/uL 0.0-0.7 [facility] Immature Granulocyte # (Auto) 0.03 10 3/uL 0.00-0.03 [facility] Platelet mean volume Auto (B ld) [Entitic vol]Ordered By: Jackson Mcmanus on 09-21-2024 Platelet mean volume (Bld) [Entitic vol] 9.3 fL Low 9.5-13.5 [facility] Platelets Auto (Bld) [#/Vol] Ordered By: Jackson Mcmanus on 09-21-2024 Platelets (Bld) [#/Vol] 205 10 3/uL 150-450 [facility] Prothrombin time (PT)Ordered By: Jackson Mcmanus on 09-21-2024 PT Coag (PPP) [Time] 11.2 s 9.0-11.6 [facility] RBC Auto (Bld) [#/Vol]Ordere d By: Jackson Mcmanus on 09-21-2024 RBC (Bld) [#/Vol] 4.55 10 6/uL Low 4.70-6.10 [facility] Serum or plasma albumin/glob ulin mass ratioOrdered By: Viky Kwong on 09-21-2024 Albumin/Globulin [Mass ratio] 1.0 {ratio} [facility] Serum or plasma anion gap de terminationOrdered By: Viky Kwong on 09-21-2024 Anion gap [Moles/Vol] 14.5 mmol/L [facility] Urine Cultureon 09-21-2024 Bacteria identified Cx Nom (U) >100,000 colonies/ml mixed bacterial skin contaminants 2 Days PERFORMED BY: [place] [address] PATHOLOGIST MACHINE TOOL TECHNICIAN INSTRUCTOR CARSON Werner [facility] Comment on above: Performed By: #### C UU #### [address] Urine cultureOrdered By: Last Mcmanus on 09-21-2024 Bacteria identified Cx Nom (U) 2 Days [facility] Orders Onlyon 09-18-2024 Orders Only [id number] Lani Lizama 1950 M Date Provider Department Center 09/18/2024 LATONYA TONY [facility] C Family History Problem Relation Age of Onset Heart attack Mother Other Father Other Brother Heart attack Maternal Grandmother Heart attack Maternal Grandfather Family Status - Relation Status Age at Mother Father Brother Maternal Grandmother Maternal Grandfather Normal [facility] Orders Onlyon 09-02-2024 Orders Only [id number] Lani Lizama 1950 M Date Provider Department Center 09/02/20242003LATONYA BADILLO [facility] C Family History Problem Relation Age of Onset Heart attack Mother Other Father Other Brother Heart attack Maternal Grandmother Heart attack Maternal Grandfather Family Status - Relation Status Age at Mother Father Brother Maternal Grandmother Maternal Grandfather Normal [facility] APTTon 08-28-2024 ACTIVATED PARTIAL THROMBOPLASTIN TIME IN PPP BY COAGULATION ASSAY 29.3 Seconds Normal 25.0-35.0 [facility] Comment on above: Result Comment: Clin ical significance of the APTT is questionable in the presence of heparin. Performed By: #### L [id number] #### [facility] [[email or web address] LAB ([place]) [address] [place] [address] CBC WITH AUTO DIFFERENTIALon 08-28-2024 Basophils (Bld) [#/Vol] 0.09 10*3/uL Normal 0.00-0.20 [facility] Comment on above: Performed By: #### L [id number] #### [facility] [[email or web address] LAB ([place]) [address] [place] [address] Basophils/100 WBC (Bld) 0.9 % Normal 0.0-1.0 [facility] Comment on above: Performed By: #### L [id number] #### [facility] [[email or web address] LAB (BEAKER) [address] [place] [address] Eosinophils (Bld) [#/Vol] 0.17 10*3/uL Normal 0.00-0.50 [facility] Comment on above: Performed By: #### L [id number] #### [facility] [[email or web address]] LAB (BEAKER) [address] [place] [address] Eosinophils/100 WBC (Bld) 1.8 % Normal 0.0-6.0 [facility] Comment on above: Performed By: #### L [id number] #### [facility] [[email or web address] [address] [place] [address] Erythrocyte distribution width (RBC) [Ratio] 14.1 % Normal 11.5-15.0 [facility] Comment on above: Performed By: #### L [id number] #### [facility] [[email or web address] LAB ([facility] [address] [place] [place] [address] ERYTHROCYTE MEAN CORPUSCULAR HEMOGLOBIN CONCENTRATION (G/DL) BY AUTOMATED 32.1 g/dL Normal 32.0-35.0 [facility] Comment on above: Performed By: #### L [id number] #### [facility] [[email or web address]] LAB ([facility]) [address] [place] [address] Hematocrit (Bld) [Volume fraction] 44.8 % Normal 39.0-50.0 [facility] Comment on above: Performed By: #### L [id number] #### [facility] [[email or web address]] LAB (BEAKER) [address] [place] [address] Hemoglobin (Bld) [Mass/Vol] 14.4 g/dL Normal 13.0-17.0 [facility] Comment on above: Performed By: #### L [id number] #### [facility] [[email or web address] LAB (BEAKER) [address] [place] [address] Immature granulocytes (Bld) [#/Vol] 0.06 10*3/uL Normal 0.00-0.20 [facility] Comment on above: Performed By: #### L [id number] #### [facility] [[email or web address] LAB (BEAKER) [address] [place] [address] Immature granulocytes/100 WBC (Bld) 0.6 % Normal 0.0-1.0 [facility] Comment on above: Performed By: #### L [id number] #### [facility] [[email or web address] LAB ([facility]) [address] [place] [address] Lymphocytes (Bld) [#/Vol] 1.81 10*3/uL Normal 1.20-4.00 [facility] Comment on above: Performed By: #### L [id number] #### [facility] [[email or web address] LAB ([facility]) [address] [place] [address] Lymphocytes/100 WBC (Bld) 18.9 % Low 20.0-45.0 [facility] Comment on above: Performed By: #### L [id number] #### [facility] [[email or web address]] LAB ([facility]) [address] [place] [address] MCH (RBC) [Entitic mass] 29.2 pg Normal 27.0-33.0 [facility] Comment on above: Performed By: #### L [id number] #### [facility] [[email or web address]] LAB ([facility]) [address] [place] [address] MCV (RBC) [Entitic vol] 90.9 fL Normal 82.0-98.0 [facility] Comment on above: Performed By: #### L [id number] #### [facility] [[email or web address]] LAB ([facility]) [address] [place] [address] Monocytes (Bld) [#/Vol] 0.76 10*3/uL Normal 0.10-1.00 [facility] Comment on above: Performed By: #### L [id number] #### [facility] [[email or web address] LAB ([facility] [address] [place] [address] Monocytes/100 WBC (Bld) 7.9 % Normal 5.0-12.0 [facility] Comment on above: Performed By: #### L [id number] #### [facility] [[email or web address]] LAB (BEAKER) [address] [place] [address] Neutrophils (Bld) [#/Vol] 6.71 10*3/uL Normal 1.60-7.60 [facility] Comment on above: Performed By: #### L [id number] #### [facility] [[email or web address]] LAB ([facility]) [address] [place] [address] Neutrophils/100 WBC (Bld) 69.9 % Normal 40.0-72.0 [facility] Comment on above: Performed By: #### L [id number] #### [facility] [[email or web address]] LAB ([facility]) [address] [place] [address] NRBC (PER 100 WBCS) BY AUTOMATED COUNT 0.0 % Normal 0 [facility] Comment on above: Performed By: #### L [id number] #### [facility] [[email or web address]] LAB ([facility]) [address] [place] [address] PLATELETS (10*3/UL) IN BLOOD AUTOMATED COUNT 278 10*3/uL Normal 150-400 [facility] Comment on above: Performed By: #### L [id number] #### [facility] [[email or web address] LAB ([facility]) [address] [place] [address] RBC (Bld) [#/Vol] 4.93 10*6/uL Normal 4.20-5.70 [facility] Comment on above: Performed By: #### L [id number] #### [facility] [[email or web address] LAB ([facility]) [address] [place] [address] WBC (Bld) [#/Vol] 9.60 10*3/uL Normal 4.00-10.60 [facility] Comment on above: Performed By: #### L [id number] #### [facility] [[email or web address] LAB ([facility]) [address] [place] [address] COMPREHENSIVE METABOLIC PANE Mike 08-28-2024 Albumin [Mass/Vol] 4.5 g/dL Normal 3.5-5.7 [facility] Comment on above: Performed By: #### L [id number] #### [facility] [[email or web address] LAB ([facility] [address] [place] [address] ALP [Catalytic activity/Vol] 117 U/L High 34-104 [facility] Comment on above: Performed By: #### L [id number] #### [facility] (BEAKER) [address] [place] [address] ALT [Catalytic activity/Vol] 17 U/L Normal 7-52 [facility] Comment on above: Performed By: #### L [id number] #### [facility] (BEAKER) [address] [place] [address] Anion gap [Moles/Vol] 11 mmol/L Normal 7-20 [facility] Comment on above: Performed By: #### L [id number] #### [facility] [[email or web address]] LAB (BEAKER) [address] [place] [address] AST [Catalytic activity/Vol] 20 U/L Normal 13-39 [facility] Comment on above: Performed By: #### L [id number] #### [facility] [[email or web address]] LAB (BEAKER) [address] [place] [address] Bilirubin [Mass/Vol] 0.6 mg/dL Normal 0.3-1.0 [facility] Comment on above: Performed By: #### L [id number] #### [facility] [[email or web address] LAB [facility] [address] [place] [address] Calcium [Mass/Vol] 9.6 mg/dL Normal 8.6-10.3 [facility] Comment on above: Performed By: #### L [id number] #### [facility] ([facility]AKER) [address] [place] [address] Chloride [Moles/Vol] 105 mmol/L Normal 98-107 [facility] Comment on above: Performed By: #### L [id number] #### [facility] (BEAKER) [address] [place] [address] CO2 [Moles/Vol] 28 mmol/L Normal 21-31 [facility] Comment on above: Performed By: #### L [id number] #### [facility] (BEAKER) [address] [place] [address] Creatinine [Mass/Vol] 1.95 mg/dL High 0.70-1.30 [facility] Comment on above: Performed By: #### L [id number] #### [facility] [[email or web address]] LAB ([facility]) [address] [place] [address] GLOMERULAR FILTRATION RATE ML/MIN/1.73 SQ M.PREDICTED 35.9 mL/min/1.73m*2 Low >60.0 [facility] Comment on above: Result Comment: The [facility]???s estimated glomerular filtration rate (eGFR) will no [...] of individuals. Performed By: #### L [id number] #### [facility] [[email or web address]] LAB ([facility]) [address] [place] [address] Glucose [Mass/Vol] 185 mg/dL High 70-100 [facility] Comment on above: Performed By: #### L [id number] #### [facility] [[email or web address] LAB ([facility]) [address] [place] [address] Potassium [Moles/Vol] 5.9 mmol/L High 3.5-5.1 [facility] Comment on above: Performed By: #### L [id number] #### [facility] [[email or web address] LAB ([facility]) [address] [place] [address] Protein [Mass/Vol] 7.7 g/dL Normal 6.0-8.3 [facility] Comment on above: Performed By: #### L [id number] #### [facility] [[email or web address] LAB ([facility]) [address] [place] [address] Sodium [Moles/Vol] 138 mmol/L Normal 136-145 [facility] Comment on above: Performed By: #### L [id number] #### [facility] [[email or web address]] LAB (BEAKER) [address] [place] [address] Urea nitrogen [Mass/Vol] 30 mg/dL High 7-25 [facility] Comment on above: Performed By: #### L [id number] #### [facility] [[email or web address]] LAB (BEAKER) [address] [place] [address] UREA NITROGEN/CREATININE (MASS RATIO) IN SER/PLAS 15.4 Normal [facility] Comment on above: Performed By: #### L [id number] #### [facility] [[email or web address]] LAB (BEAKER) [address] [place] [address] Labon 08-28-2024 Lab [id number] Lani Lizama 1950 M Date Provider Department Center 08/28/2024 2245-[facility] OPD LAB RESOURCE [facility] NM Medical C Family History Problem Relation Age of Onset Heart attack Mother Other Father Other Brother Heart attack Maternal Grandmother Heart attack Maternal Grandfather Family Status - Relation Status Age at Mother Father Brother Maternal Grandmother Maternal Grandfather Normal [facility] Office Visiton 08-28-2024 Follow-up visit [id number] Dorado 1950 M Date Provider Department Center 08/28/2024 [id number], OBI [facility] URO Second Fl Family History Problem Relation Age of Onset Heart attack Mother Other Father Other Brother Heart attack Maternal Grandmother Heart attack Maternal Grandfather Family Status - Relation Status Age at Mother Father Brother Maternal Grandmother Maternal Grandfather Level of Service:53884 SD OFFICE/OUTPATIENT ESTABLISHED MOD MDM 30 MIN Normal [facility] PROTIME-INRon 08-28-2024 INR IN PPP BY COAGULATION ASSAY 1.10 Normal 0.90-1.10 [facility] Comment on above: Result Comment: ACCC P [...] CHEST 1995;[id number]. Performed By: #### L [id number] ####[facility] ([facility])[address] [place] [address] PROTHROMBIN TIME (PT) IN PPP BY COAGULATION ASSAY 14.2 Seconds Normal 12.3-14.8 [facility] Comment on above: Performed By: #### L [id number] ####[facility] [[email or web address] LAB ([facility])[address] [place] [address] PSA, SCREENINGon 08-28-2024 PROSTATE SPECIFIC AG (NG/ML) IN SER/PLAS 1.5 ng/mL Normal 0.4-4 [facility] Comment on above: Performed By: #### L [id number] #### [facility] ([facility]) [address] [place] [address] URINE CULTURE, ROUTINEon Bacteria identified Cx Nom (U) <10,000 CFU/ML No Significant Growth Normal [facility] Comment on above: Performed By: #### L [id number] ####[facility] [[email or web address] LAB ([facility])[address] [place] [address] Laboratory - Chemistry and C hemistry - challengeon 08-27-2024 Bilirubin Ql (U) Negative NEGATIVE [facility] Glucose (U) [Mass/Vol] mg/dL Abnormal NEGATIVE [facility] Ketones Ql (U) Negative NEGATIVE [facility] pH (U) 6.0 [pH] 5.0-9.0 [facility] Specific gravity (U) [Rel density] 1.025 1.005-1.02 5 [facility] Urobilinogen Qn (U) 1.0 {Luisito'U}/dL 0.2-1.0 [facility] Laboratory - Specimen inform ationon 08-27-2024 Appearance (U) SL CLOUDY CLEAR [facility] Color (U) YELLOW YELLOW [facility] Laboratory - Urinalysison Leukocyte esterase Test strip Ql (U) MODERATE Abnormal NEGATIVE [facility] Nitrite Ql (U) Negative NEGATIVE [facility] Protein Ql (U) >=300 mg/dL Abnormal NEG/TRACE [facility] No Panel Informationon 08-27 Urine Occult Blood LARGE Abnormal NEGATIVE [facility] Urine Cultureon 08-27-2024 Bacteria identified Cx Nom (U) <9,000 colonies/ml mixed bacterial skin contaminants 2 Days PERFORMED BY: [facility] [address] [place] [address] PATHOLOGIST MACHINE TOOL TECHNICIAN INSTRUCTOR CARSON ADAMES M.D. Normal [facility] Comment on above: Performed By: #### C UU #### [facility] [address] Office Visiton 08-20-2024 Follow-up visit [id number] Lani Lizama 1950 [place] Provider Department Center 08/20/2024 [facility] Family History Problem Relation Age of Onset Heart attack Mother Other Father Other Brother Heart attack Maternal Grandmother Heart attack Maternal Grandfather Family Status - Relation Status Age at Mother Father Brother Maternal Grandmother Maternal Grandfather Level of Service:28131 SD OFFICE/OUTPATIENT ESTABLISHED MOD MDM 30 MIN Normal [facility] 30on 08-14-2024 30 The patient is Moder [...] hemodynamic stability Outcome: Adequate for Discharge Normal [facility] 30 Lexiscan stress test Patient information sheet [...] and hemodynamically stable 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 Juli Salazar RN [facility] Cardiovascular Stress Lab Normal [facility] HIGH SENSITIVITY TROPONIN Io n 08-14-2024 HS TROPONIN I (NG/L) 160 ng/L Critically high <20 [facility] Comment on above: Performed By: #### L [id number] ####[facility] [[email or web address]] LAB (BEAKER)[address] [place] [address] NURSNOTEon 08-14-2024 NURSNOTE Patient off the unit at 8:23 am for ECHO and stress test, returned to unit at 12:05 pm. Normal [facility] Orders Onlyon 08-14-2024 Orders Only [id number] Lani Lizama 1950 M Date Provider Department Center 08/14/2024 KEVIN DEMPSEY [facility] CARD NM HeartVAS Family History Problem Relation Age of Onset Heart attack Mother Other Father Other Brother Heart attack Maternal Grandmother Heart attack Maternal Grandfather Family Status - Relation Status Age at Mother Father Brother Maternal Grandmother Maternal Grandfather Normal [facility] POCT GLUCOSE METER UNSOLICIT ED RESULTSon 08-14-2024 Glucose [Mass/Vol] 155 mg/dL High 70-105 [facility] Comment on above: Order Comment: Waive d Testing in the ED is performed under the ED CLIA certificate #[id number]. Result Comment: dcun dic Performed By: #### L [id number] #### [facility] [[email or web address] LAB (BEAKER) [address] [place] [address] Glucose [Mass/Vol] 251 mg/dL High 70-105 [facility] Comment on above: Order Comment: Waive d Testing in the ED is performed under the ED CLIA certificate #[id number]. Result Comment: jdlu gol Performed By: #### L [id number] #### [facility] [[email or web address] LAB (BEAKER) [address] [place] [address] Glucose [Mass/Vol] 187 mg/dL High 70-105 [facility] Comment on above: Order Comment: Waive d Testing in the ED is performed under the ED CLIA certificate #[id number]. Result Comment: jdlu gol Performed By: #### L [id number] ####[facility] [[email or web address]] LAB (BEAKER)[address] [place] [address] 30on 08-13-2024 30 The patient is Moder [...] and behaviors that affect risk of falls Staley fall precautions as indicated by assessment Educate [...] dysrhythmias or at baseline Outcome: Progressing Normal [facility] Basophils Auto (Bld) [#/Vol] on 08-13-2024 Basophils (Bld) [#/Vol] Automated basophil count 0.0-0.1 [facility] Basophils (Bld) [#/Vol] 0.1 10 3/uL 0.0-0.1 [facility] Basophils/100 WBC Auto (Bld) on 08-13-2024 Basophils/100 WBC (Bld) Automated basophil % 0.2-2.0 [facility] Basophils/100 WBC (Bld) 0.8 % 0.2-2.0 [facility] CBC WITH AUTO DIFFERENTIALon 08-13-2024 Basophils (Bld) [#/Vol] 0.05 10*3/uL Normal 0.00-0.20 [facility] Comment on above: Performed By: #### L [id number] ####[facility] [[email or web address]] LAB (BEAKER)[address] [place] [address] Basophils/100 WBC (Bld) 0.7 % Normal 0.0-1.0 [facility] Comment on above: Performed By: #### L [id number] ####[facility] (BEAKER)[address] [place] [address] Eosinophils (Bld) [#/Vol] 0.14 10*3/uL Normal 0.00-0.50 [facility] Comment on above: Performed By: #### L [id number] ####[facility] [[email or web address]] LAB (BEAKER)[address] [place] [address] Eosinophils/100 WBC (Bld) 1.8 % Normal 0.0-6.0 [facility] Comment on above: Performed By: #### L [id number] ####[facility] [[email or web address]] LAB (BEAKER)[address] [place] [address] Erythrocyte distribution width (RBC) [Ratio] 14.6 % Normal 11.5-15.0 [facility] Comment on above: Performed By: #### L [id number] ####[facility] [[email or web address]] LAB (BEAKER)[address] [place] [address] ERYTHROCYTE MEAN CORPUSCULAR HEMOGLOBIN CONCENTRATION (G/DL) BY AUTOMATED 32.9 g/dL Normal 32.0-35.0 [facility] Comment on above: Performed By: #### L [id number] ####[facility] [[email or web address] LAB [facility] [place] [address] Hematocrit (Bld) [Volume fraction] 39.8 % Normal 39.0-50.0 [facility] Comment on above: Performed By: #### L [id number] ####[facility] [[email or web address]] LAB ([facility])[address] [place] [address] Hemoglobin (Bld) [Mass/Vol] 13.1 g/dL Normal 13.0-17.0 [facility] Comment on above: Performed By: #### L [id number] ####[facility] [[email or web address]] LAB ([facility])[address] [place] [address] Immature granulocytes (Bld) [#/Vol] 0.03 10*3/uL Normal 0.00-0.20 [facility] Comment on above: Performed By: #### L [id number] ####[facility] [[email or web address]] LAB ([facility])[address] [place] [address] Immature granulocytes/100 WBC (Bld) 0.4 % Normal 0.0-1.0 [facility] Comment on above: Performed By: #### L [id number] ####[facility] [[email or web address]] LAB (BEAKER)[address] [place] [address] Lymphocytes (Bld) [#/Vol] 1.51 10*3/uL Normal 1.20-4.00 [facility] Comment on above: Performed By: #### L [id number] ####[facility] [[email or web address] LAB ([facility] [place] [address] Lymphocytes/100 WBC (Bld) 19.8 % Low 20.0-45.0 [facility] Comment on above: Performed By: #### L [id number] ####[facility] [[email or web address]] LAB (BEAKER)[address] [place] [address] MCH (RBC) [Entitic mass] 29.3 pg Normal 27.0-33.0 [facility] Comment on above: Performed By: #### L [id number] ####[facility] [[email or web address]] LAB (BEAKER)[address] [place] [address] MCV (RBC) [Entitic vol] 89.0 fL Normal 82.0-98.0 [facility] Comment on above: Performed By: #### L [id number] ####[facility] [[email or web address] LAB ([facility] [place] [address] Monocytes (Bld) [#/Vol] 0.57 10*3/uL Normal 0.10-1.00 [facility] Comment on above: Performed By: #### L [id number] ####[facility] [[email or web address]] LAB ([facility])[address] [place] [address] Monocytes/100 WBC (Bld) 7.5 % Normal 5.0-12.0 [facility] Comment on above: Performed By: #### L [id number] ####[facility] [[email or web address]] LAB ([facility])[address] [place] [address] Neutrophils (Bld) [#/Vol] 5.32 10*3/uL Normal 1.60-7.60 [facility] Comment on above: Performed By: #### L [id number] ####[facility] [[email or web address]] LAB ([facility])[address] [place] [address] Neutrophils/100 WBC (Bld) 69.8 % Normal 40.0-72.0 [facility] Comment on above: Performed By: #### L [id number] ####[facility] [[email or web address] LAB ([facility] [place] [address] NRBC (PER 100 WBCS) BY AUTOMATED COUNT 0.0 % Normal 0 [facility] Comment on above: Performed By: #### L [id number] ####[facility] [[email or web address] LAB ([facility] [place] [address] PLATELETS (10*3/UL) IN BLOOD AUTOMATED COUNT 201 10*3/uL Normal 150-400 [facility] Comment on above: Performed By: #### L [id number] ####[facility] [[email or web address] LAB ([facility] [place] [address] RBC (Bld) [#/Vol] 4.47 10*6/uL Normal 4.20-5.70 [facility] Comment on above: Performed By: #### L [id number] ####[facility] [[email or web address] LAB ([facility] [place] [address] WBC (Bld) [#/Vol] 7.62 10*3/uL Normal 4.00-10.60 [facility] Comment on above: Performed By: #### L [id number] ####[facility] [[email or web address] LAB ([facility] [place] [address] COMPREHENSIVE METABOLIC PANE Mike 08-13-2024 Albumin [Mass/Vol] 4.3 g/dL Normal 3.5-5.7 [facility] Comment on above: Performed By: #### L [id number] ####[facility] [[email or web address] LAB ([facility] [place] [address] ALP [Catalytic activity/Vol] 90 U/L Normal 34-104 [facility] Comment on above: Performed By: #### L [id number] ####[facility] [[email or web address]] LAB (BEAKER)[address] [place] [address] ALT [Catalytic activity/Vol] 15 U/L Normal 7-52 [facility] Comment on above: Performed By: #### L [id number] ####[facility] [[email or web address]] LAB (BEAKER)[address] [place] [address] Anion gap [Moles/Vol] 13 mmol/L Normal 7-20 [facility] Comment on above: Performed By: #### L [id number] ####[facility] [[email or web address]] LAB (BEAKER)[address] [place] [address] AST [Catalytic activity/Vol] 27 U/L Normal 13-39 [facility] Comment on above: Performed By: #### L [id number] ####[facility] [[email or web address]] LAB (BEAKER)[address] [place] [address] Bilirubin [Mass/Vol] 0.7 mg/dL Normal 0.3-1.0 [facility] Comment on above: Performed By: #### L [id number] ####[facility] [[email or web address] LAB ([facility] [place] [address] Calcium [Mass/Vol] 9.1 mg/dL Normal 8.6-10.3 [facility] Comment on above: Performed By: #### L [id number] ####[facility] [[email or web address]] LAB ([facility])[address] [place] [address] Chloride [Moles/Vol] 108 mmol/L High 98-107 [facility] Comment on above: Performed By: #### L [id number] ####[facility] [[email or web address]] LAB ([facility])[address] [place] [address] CO2 [Moles/Vol] 21 mmol/L Normal 21-31 [facility] Comment on above: Performed By: #### L [id number] ####[facility] [[email or web address]] LAB ([facility])[address] [place] [address] Creatinine [Mass/Vol] 1.63 mg/dL High 0.70-1.30 [facility] Comment on above: Performed By: #### L [id number] ####[facility] [[email or web address]] LAB ([facility])[address] [place] [address] GLOMERULAR FILTRATION RATE ML/MIN/1.73 SQ M.PREDICTED 44.5 mL/min/1.73m*2 Low >60.0 [facility] Comment on above: Result Comment: The [facility]???s estimated glomerular filtration rate (eGFR) will no [...] of individuals. Performed By: #### L [id number] ####[facility] [[email or web address]] LAB ([facility])[address] [place] [address] Glucose [Mass/Vol] 165 mg/dL High 70-100 [facility] Comment on above: Performed By: #### L [id number] ####[facility] [[email or web address]] LAB ([facility])[address] [place] [address] Potassium [Moles/Vol] 4.7 mmol/L Normal 3.5-5.1 [facility] Comment on above: Performed By: #### L [id number] ####[facility] [[email or web address]] LAB ([facility])[address] [place] [address] Protein [Mass/Vol] 7.2 g/dL Normal 6.0-8.3 [facility] Comment on above: Performed By: #### L [id number] ####[facility] [[email or web address]] LAB ([facility])[address] [place] [address] Sodium [Moles/Vol] 137 mmol/L Normal 136-145 [facility] Comment on above: Performed By: #### L [id number] ####[facility] [[email or web address]] LAB ([facility])[address] [place] [address] Urea nitrogen [Mass/Vol] 26 mg/dL High 7-25 [facility] Comment on above: Performed By: #### L [id number] ####[facility] [[email or web address]] LAB ([facility])[address] [place] [address] UREA NITROGEN/CREATININE (MASS RATIO) IN SER/PLAS 16.0 Normal [facility] Comment on above: Performed By: #### L [id number] ####[facility] [[email or web address]] LAB ([facility])[address] [place] [address] CONSULTon 08-13-2024 CONSULT ------ -- Attestation signed by Tatianna Hayward MD at 08/13/2024 7:18 PM I personally spoke with and examined Mr. Lizama with Dr. Pagan today. I then spoke with his truck farmer Dr. Bishop about his longitudinal care. At [...] poor LV function and recurrent non-STEMI presentation. -- Cardiology Consult Note Reason for Consult: [...] mildly elevated troponin. Patient was transferred to [facility] for further evaluation and treatment. [...] (1000 unit (more content not included)... Normal [facility] Eosinophils/100 WBC Auto (Bl d)on 08-13-2024 Eosinophils/100 WBC (Bld) Automated eosinophil % 0.9-7.0 [facility] Eosinophils/100 WBC (Bld) 2.7 % 0.9-7.0 [facility] Erythrocyte distribution wid th Auto (RBC) [Ratio]on 08-13-2024 Erythrocyte distribution width (RBC) [Ratio] Erythrocyte distribution width [Ratio] by Automated count 11.0-15.0 [facility] Erythrocyte distribution width (RBC) [Ratio] 14.7 % 11.0-15.0 [facility] Estimated glomerular filtrat ion rate (GFR) non- Americanon 08-13-2024 GFR/1.73 sq M.predicted among non-blacks MDRD (S/P/Bld) [Vol rate/Area] Estimated glomerular filtration rate (GFR) non- Low >=60 mL/min/1.7 3m 2 [facility] GFR/1.73 sq M.predicted among non-blacks MDRD (S/P/Bld) [Vol rate/Area] 33 mL/min/{1.73_m2} Low >=60 mL/min/1.7 3m 2 [facility] Fibrin D-dimer [Presence] in Platelet poor plasma by Latex agglutinationon 08-13-2024 Fibrin D-dimer LA Ql (PPP) Fibrin D-dimer [Presence] in Platelet poor plasma by Latex agglutination Critically high <=0.59 [facility] Comment on above: RESULTS CALLED TO PAVEL [...] diabetes, thrombolyticor anticoagulant therapy, stress, and generalizedhospitalization. Fibrin D-dimer LA Ql (PPP) 0.75 mg/L FEU Critically high <=0.59 [facility] Comment on above: RESULTS CALLED TO PAVEL FENTON RN @BY Chelsey Forbes at 005Increases in D-Dimer concentration observed withthromboembolic events can [...] I (NG/L) 294 ng/L Critically high <20 [facility] Comment on above: Performed By: #### L [id number] ####[facility] [[email or web address]] LAB (BEAKER)[address] [place] [address] Hematocrit Auto (Bld) [Volum e fraction]on 08-13-2024 Hematocrit (Bld) [Volume fraction] Hematocrit [Volume Fraction] of Blood by Automated count Low 42.0-54.0 [facility] Hematocrit (Bld) [Volume fraction] 38.9 % Low 42.0-54.0 [facility] Hemoglobin [Mass/volume] in Bloodon 08-13-2024 Hemoglobin (Bld) [Mass/Vol] Hemoglobin [Mass/volume] in Blood Low 14.0-18.0 [facility] Hemoglobin (Bld) [Mass/Vol] 13.2 g/dL Low 14.0-18.0 [facility] Laboratory - Chemistry and C hemistry - challengeon 08-13-2024 Calcium [Mass/Vol] 9.3 mg/dL 8.5-10.1 [facility] Chloride [Moles/Vol] 103 mmol/L 98-107 [facility] CO2 [Moles/Vol] 24.4 mmol/L 21.0-32.0 [facility] Creatinine [Mass/Vol] 2.02 mg/dL High 0.70-1.30 [facility] GFR/1.73 sq M.predicted MDRD (S/P/Bld) [Vol rate/Area] 40 mL/min/{1.73_m2} Low >=60 mL/min/1.7 3m 2 [facility] Glucose [Mass/Vol] 310 mg/dL High 74-106 [facility] Potassium [Moles/Vol] 3.9 mmol/L 3.5-5.1 [facility] Sodium [Moles/Vol] 137 mmol/L 136-145 [facility] Urea nitrogen [Mass/Vol] 29.0 mg/dL High 7.0-18.0 [facility] Urea nitrogen/Creatinine [Mass ratio] 14.4 mg/mg [facility] Laboratory - Hematology and Cell countson 08-13-2024 Immature granulocytes/100 WBC (Bld) 0.5 % 0.0-0.5 [facility] Leukocytes [#/volume] correc soraya for nucleated erythrocytes in Blood by Automated counon 08-13-2024 WBC corrected for nucl RBC Auto (Bld) [#/Vol] Leukocytes [#/volume] corrected for nucleated erythrocytes in Blood by Automated coun .0-11.0 [facility] WBC corrected for nucl RBC Auto (Bld) [#/Vol] 8.6 10 3/uL 4.0-11.0 [facility] Lymphocytes Auto (Bld) [#/Vo l]on 08-13-2024 Lymphocytes (Bld) [#/Vol] Lymphocytes [#/volume] in Blood by Automated count 1.2-3.8 [facility] Lymphocytes (Bld) [#/Vol] 2.0 10 3/uL 1.2-3.8 [facility] Lymphocytes/100 WBC Auto (Bl d)on 08-13-2024 Lymphocytes/100 WBC (Bld) Lymphocytes/100 leukocytes in Blood by Automated count 20.5-60.0 [facility] Lymphocytes/100 WBC (Bld) 22.6 % 20.5-60.0 [facility] MAGNESIUMon 08-13-2024 Magnesium [Mass/Vol] 1.9 mg/dL Normal 1.9-2.7 [facility] Comment on above: Performed By: #### L [id number] #### [facility] [[email or web address]] LAB (BEAKER) [address] [place] [address] MCH Auto (RBC) [Entitic mass ]on 08-13-2024 MCH (RBC) [Entitic mass] MCH [Entitic mass] by Automated count 25.9-34.0 [facility] MCH (RBC) [Entitic mass] 30.7 pg 25.9-34.0 [facility] MCHC Auto (RBC) [Mass/Vol]on 08-13-2024 MCHC (RBC) [Mass/Vol] MCHC [Mass/volume] by Automated count 29.9-35.2 [facility] MCHC (RBC) [Mass/Vol] 33.9 g/dL 29.9-35.2 [facility] MCV Auto (RBC) [Entitic vol] on 08-13-2024 MCV (RBC) [Entitic vol] MCV [Entitic volume] by Automated count 80.0-94.0 [facility] MCV (RBC) [Entitic vol] 90.5 fL 80.0-94.0 [facility] Monocytes Auto (Bld) [#/Vol] on 08-13-2024 Monocytes (Bld) [#/Vol] Automated blood monocyte count High 0.3-0.8 [facility] Monocytes (Bld) [#/Vol] 1.0 10 3/uL High 0.3-0.8 [facility] Monocytes/100 WBC Auto (Bld) on 08-13-2024 Monocytes/100 WBC (Bld) Automated monocyte % 1.7-12.0 [facility] Monocytes/100 WBC (Bld) 11.0 % 1.7-12.0 [facility] Neutrophils Auto (Bld) [#/Vo l]on 08-13-2024 Neutrophils (Bld) [#/Vol] Neutrophils [#/volume] in Blood by Automated count 1.4-6.5 [facility] Neutrophils (Bld) [#/Vol] 5.4 10 3/uL 1.4-6.5 [facility] Neutrophils/100 WBC Auto (Bl d)on 08-13-2024 Neutrophils/100 WBC (Bld) Automated neutrophil % 43.0-75.0 [facility] Neutrophils/100 WBC (Bld) 62.4 % 43.0-75.0 [facility] No Panel Informationon 08-13 Troponin I High Sensitivity 228.4 pg/mL Critically high 4.0-76.1 [facility] Comment on above: RESULTS CALLED TO YNES [...] Eosinophils # (Auto) 0.2 10 3/uL 0.0-0.7 [facility] Immature Granulocyte # (Auto) 0.04 10 3/uL High 0.00-0.03 [facility] PHOSPHORUSon 08-13-2024 Magnesium [Mass/Vol] 3.6 mg/dL Normal 2.5-5.0 [facility] Comment on above: Performed By: #### L [id number] #### [facility] (BEAKER) [address] [place] [address] POCT GLUCOSE METER UNSOLICIT ED RESULTSon 08-13-2024 Glucose [Mass/Vol] 104 mg/dL Normal 70-105 [facility] Comment on above: Order Comment: Waive d Testing in the ED is performed under the ED CLIA certificate #[id number]. Result Comment: [email or web address] Performed By: #### L [id number] ####[facility] (BEAKER)[address] [place] [address] Glucose [Mass/Vol] 207 mg/dL High 70-105 [facility] Comment on above: Order Comment: Waive d Testing in the ED is performed under the ED CLIA certificate #[id number]. Result Comment: jdlu gol Performed By: #### L [id number] ####[facility] [[email or web address] LAB (BEAKER)[address] [place] [address] Glucose [Mass/Vol] 160 mg/dL High 70-105 [facility] Comment on above: Order Comment: Waive d Testing in the ED is performed under the ED CLIA certificate #[id number]. Result Comment: jdlu gol Performed By: #### L [id number] #### [facility] [[email or web address] LAB ([facility]) [address] [place] [address] Platelet mean volume Auto (B ld) [Entitic vol]on 08-13-2024 Platelet mean volume (Bld) [Entitic vol] Platelet mean volume [Entitic volume] in Blood by Automated count 9.5-13.5 [facility] Platelet mean volume (Bld) [Entitic vol] 9.8 fL 9.5-13.5 [facility] Platelets Auto (Bld) [#/Vol] on 08-13-2024 Platelets (Bld) [#/Vol] Platelets [#/volume] in Blood by Automated count 150-450 [facility] Platelets (Bld) [#/Vol] 217 10 3/uL 150-450 [facility] RBC Auto (Bld) [#/Vol]on RBC (Bld) [#/Vol] Erythrocytes [#/volu me] in Blood by Automated count Low 4.70-6.10 [facility] RBC (Bld) [#/Vol] 4.30 10 6/uL Low 4.70-6.10 [facility] Serum or plasma anion gap de terminationon 05-15-2025 Anion gap [Moles/Vol] Serum or plasma an ion gap determination [facility] Anion gap [Moles/Vol] 13.5 mmol/L [facility] Main OR Preoperative Recordo n 08-11-2024 Main OR Preoperative Record Main OR Preoperative Record Holding Area Document Type FTURO Summary Primary Physician: Jason LARKIN MD Finalized Date/Time: 08/11/24 16:19:02 Pt. Name: LANI LIZAMA/Sex: 1950 Male Med Rec #: [id number] Physician: Jason LARKIN MD Financial #: [id number] Pt. Type: O Room/Bed: / Admit/Disch: 08/04/24 [...] SUNITA Agrawal RN, Ruthann 08/11/24 16:19 Normal [facility] Urine Cytology ([facility])on 0 08-07-2024 Microscopic exam Cytology (U) [Interp] Diagnosis Info Invalid Interpretation Code [facility] Comment on above: Result Comment: A:Ur ine,Urine:Voided Interpretation - Adequate cellularity for evaluation. CPT 91376 MicroScopic Description - Adequacy - Gross Description Site ID:A color Red fixative Alcohol Specimen designated Urine received in alcohol preservative and labeled with the patient???s name, consists of 60ml cloudy red fluid. Electronically signed by : on: 08/07/2024 13:02:18 Performed By: #### 1 [id number] #### [facility] [address] [place] [address] Main OR Intraoperative Recor don 08-04-2024 Main OR Intraoperative Record Main OR Intraoperative Record IntraOp Document Type FTURO Summary Primary Physician: Jason LARKIN MD Finalized Date/Time: 08/04/24 10:03:52 Pt. Name: LANI LIZAMA/Sex: 1950 Male Med Rec #: [id number] Physician: Jason LARKIN MD Financial #: [id number] Pt. Type: O Room/Bed: / Admit/Disch: 08/04/24 09:15:12 - Institution: Case Times FTURO Entry 1 Patient Times In Room 08/04/24 09:45:00 Out Room 08/04/24 10:10:00 Procedure Times Start 08/04/24 09:53:00 Stop 08/04/24 10:05:00 Anesthesia Times Last Modified By: Tanja POSADA, Yanet DORSEY 08/04/24 10:03:16 Case Attendance FTURO Entry 1 Entry 2 Entry 3 Case Attendee CHAYA LEMUS, Jason Agrawal RN, DEEPALIOR, Halley WRIGHT, Hortencia Holt Role Performed Surgeon - Primary Transition Assistant - Primary Scrub - Primary Time In [...] Yes bladder GROSS HEMATURIA Last Modified By: Tanja POSADA, DEEPALIOR, Yanet 08/04/24 10:01:19 Post-Care Text: The patient [...] Out Jason LARKIN MD, Verified (If Participants Tanja POSADA, CNOR, Applicable) Halley Holt CST, Kimberly A Time [...] SUNITA Agrawal RN, Ruthann 08/04/24 10:03 Normal [facility] Operative Reporton Operative Report Operative Report [...] TURBT potentially at a tertiary center.. Normal [facility] Comment on above: Result Comment: Elec tronically Signed By: CHAYA LEMUS, Jason Edgar.oniel\Date and Time Signed: 08/04/24 10:12 EDT HbA1c HPLC (Bld) [Mass fract ion]on 08-03-2024 HbA1c (Bld) [Mass fraction] Hemoglobin A1c/Hemoglobin.total in Blood by HPLC [facility] HbA1c (Bld) [Mass fraction] 6.5 % [facility] No Panel Informationon 08-03 Bedside Glucose 147 [facility] Urine Cytology ([facility])on 0 08-03-2024 UC Method of Extraction Voided Normal [facility] Comment on above: Performed By: #### 1 [id number] #### [facility] [address] Number of Jars 1 Invalid Interpretation Code [facility] Comment on above: Performed By: #### 1 [id number] #### [facility] [address] [place] [address] UC Specimen Urine Normal [facility] Comment on above: Performed By: #### 1 [id number] #### [facility] [address] [place] [address] Type of Service Technical Only Normal Fi [facility] Comment on above: Performed By: #### 1 [id number] #### [facility] [address] [place] [id number] Urology Office/Clinic Noteon 08-03-2024 Urology Office/Clinic Note [...] factor for urothelial ca. 5. Anticoagulated (Z79.01: terminal carman (current) use of anticoagulants) On Plavix. Hx of CABG x5 1995 at [facility], PCI/stent x8 at [facility]. Elevated risk for periop complications. Follow-up With When Contact Information CHAYA LEMUS, Jason Sanchez, URL [facility] [address], [place] [address]- [phone] Additional Instructions: sched cysto Patient Education Cystoscopy I, Tiffany Patten, personally scribed for Dr. Larkin on 08/03/2024 14:23:23. . Documentation recorded by the scribeTiffany, accurately reflects the services(s) I performed and decisions made by me. Authenticated by Dr. Larkin on 08/03/2024 14:25:00. Problem List/Past Medical History Ongoing Abdominal pain, RLQ Anticoagulated Arthritis ASHD (arteriosclerotic heart disease) Atheroscler of [place] [...] abdominal aort (more content not included)... Normal [facility] Comment on above: Result Comment: Elec tronically Signed By: Jason LARKIN MD\.br\Date and Time Signed: 08/03/24 14:25 EDT\.br\Electronically Co-Signed By: Tiffany Patten\.br\Date and Time Co-Signed: 08/03/24 14:24 EDT Basophils Auto (Bld) [#/Vol] on 07-15-2024 Basophils (Bld) [#/Vol] Automated basophil count 0.0-0.1 [facility] Basophils (Bld) [#/Vol] 0.1 10 3/uL 0.0-0.1 [facility] Basophils/100 WBC Auto (Bld) on 07-15-2024 Basophils/100 WBC (Bld) Automated basophil % 0.2-2.0 [facility] Basophils/100 WBC (Bld) 0.9 % 0.2-2.0 [facility] Eosinophils/100 WBC Auto (Bl d)on 07-15-2024 Eosinophils/100 WBC (Bld) Automated eosinophil % 0.9-7.0 [facility] Eosinophils/100 WBC (Bld) 3.1 % 0.9-7.0 [facility] Erythrocyte distribution wid th Auto (RBC) [Ratio]on 07-15-2024 Erythrocyte distribution width (RBC) [Ratio] Erythrocyte distribution width [Ratio] by Automated count 11.0-15.0 [facility] Erythrocyte distribution width (RBC) [Ratio] 15.0 % 11.0-15.0 [facility] Estimated glomerular filtrat ion rate (GFR) non- Americanon 07-15-2024 GFR/1.73 sq M.predicted among non-blacks MDRD (S/P/Bld) [Vol rate/Area] Estimated glomerular filtration rate (GFR) non- Low >=60 mL/min/1.7 3m 2 [facility] GFR/1.73 sq M.predicted among non-blacks MDRD (S/P/Bld) [Vol rate/Area] 39 mL/min/{1.73_m2} Low >=60 mL/min/1.7 3m 2 [facility] Globulin Calc (S) [Mass/Vol] on 07-15-2024 Globulin (S) [Mass/Vol] Serum globulin measurement by calculation (mass/volume) [facility] Globulin (S) [Mass/Vol] 3.7 g/dL [facility] Hematocrit Auto (Bld) [Volum e fraction]on 07-15-2024 Hematocrit (Bld) [Volume fraction] Hematocrit [Volume Fraction] of Blood by Automated count 42.0-54.0 [facility] Hematocrit (Bld) [Volume fraction] 42.8 % 42.0-54.0 [facility] Hemoglobin [Mass/volume] in Bloodon 07-15-2024 Hemoglobin (Bld) [Mass/Vol] Hemoglobin [Mass/volume] in Blood 14.0-18.0 [facility] Hemoglobin (Bld) [Mass/Vol] 14.5 g/dL 14.0-18.0 [facility] Laboratory - Chemistry and C hemistry - challengeon 07-15-2024 Albumin [Mass/Vol] 3.8 g/dL 3.4-5.0 [facility] ALP [Catalytic activity/Vol] 128 U/L High 46-116 [facility] ALT [Catalytic activity/Vol] 30 U/L 16-63 [facility] AST [Catalytic activity/Vol] 22 U/L 15-37 [facility] Bilirubin [Mass/Vol] 0.6 mg/dL 0.2-1.0 [facility] Calcium [Mass/Vol] 8.9 mg/dL 8.5-10.1 [facility] Chloride [Moles/Vol] 104 mmol/L 98-107 [facility] CO2 [Moles/Vol] 28.1 mmol/L 21.0-32.0 [facility] Creatinine [Mass/Vol] 1.74 mg/dL High 0.70-1.30 [facility] GFR/1.73 sq M.predicted MDRD (S/P/Bld) [Vol rate/Area] 47 mL/min/{1.73_m2} Low >=60 mL/min/1.7 2 [facility] Glucose [Mass/Vol] 142 mg/dL High 74-106 [facility] Potassium [Moles/Vol] 4.1 mmol/L 3.5-5.1 [facility] Protein [Mass/Vol] 7.5 g/dL 6.4-8.2 [facility] Sodium [Moles/Vol] 140 mmol/L 136-145 [facility] Urea nitrogen [Mass/Vol] 19.0 mg/dL High 7.0-18.0 [facility] Urea nitrogen/Creatinine [Mass ratio] 10.9 mg/mg [facility] Bilirubin Ql (U) COLOR INTERFERENCE Abnormal NEGATIVE [facility] Ketones Ql (U) COLOR INTERFERENCE mg/dL Abnormal NEGATIV E [facility] Specific gravity (U) [Rel density] 1.020 1.005-1.02 5 [facility] Laboratory - Hematology and Cell countson 07-15-2024 Immature granulocytes/100 WBC (Bld) 0.6 % High 0.0-0.5 [facility] Laboratory - Specimen inform ationon 07-15-2024 Appearance (U) CLOUDY Abnormal CLEAR [facility] Color (U) DK. RED YELLOW [facility] Laboratory - Urinalysison Leukocyte esterase Test strip Ql (U) COLOR INTERFERENCE Abnormal NEGATIVE [facility] Mucus Ql (Urine sed) NONE SEEN NONE SEEN [facility] Nitrite Ql (U) COLOR INTERFERENCE Abnormal NEGATIVE [facility] Protein Ql (U) COLOR INTERFERENCE mg/dL Abnormal NEG/TRA CE [facility] Leukocytes [#/volume] correc soraya for nucleated erythrocytes in Blood by Automated counon 07-15-2024 WBC corrected for nucl RBC Auto (Bld) [#/Vol] Leukocytes [#/volume] corrected for nucleated erythrocytes in Blood by Automated coun 4.0-11.0 [facility] WBC corrected for nucl RBC Auto (Bld) [#/Vol] 8.1 10 3/uL 4.0-11.0 [facility] Lymphocytes Auto (Bld) [#/Vo l]on 07-15-2024 Lymphocytes (Bld) [#/Vol] Lymphocytes [#/volume] in Blood by Automated count 1.2-3.8 [facility] Lymphocytes (Bld) [#/Vol] 1.7 10 3/uL 1.2-3.8 [facility] Lymphocytes/100 WBC Auto (Bl d)on 07-15-2024 Lymphocytes/100 WBC (Bld) Lymphocytes/100 leukocytes in Blood by Automated count 20.5-60.0 [facility] Lymphocytes/100 WBC (Bld) 21.1 % 20.5-60.0 [facility] MCH Auto (RBC) [Entitic mass ]on 07-15-2024 MCH (RBC) [Entitic mass] MCH [Entitic mass] by Automated count 25.9-34.0 [facility] MCH (RBC) [Entitic mass] 30.7 pg 25.9-34.0 [facility] MCHC Auto (RBC) [Mass/Vol]on 07-15-2024 MCHC (RBC) [Mass/Vol] MCHC [Mass/volume] by Automated count 29.9-35.2 [facility] MCHC (RBC) [Mass/Vol] 33.9 g/dL 29.9-35.2 [facility] MCV Auto (RBC) [Entitic vol] on 07-15-2024 MCV (RBC) [Entitic vol] MCV [Entitic volume] by Automated count 80.0-94.0 [facility] MCV (RBC) [Entitic vol] 90.5 fL 80.0-94.0 [facility] Monocytes Auto (Bld) [#/Vol] on 07-15-2024 Monocytes (Bld) [#/Vol] Automated blood monocyte count 0.3-0.8 [facility] Monocytes (Bld) [#/Vol] 0.8 10 3/uL 0.3-0.8 [facility] Monocytes/100 WBC Auto (Bld) on 07-15-2024 Monocytes/100 WBC (Bld) Automated monocyte % 1.7-12.0 [facility] Monocytes/100 WBC (Bld) 9.5 % 1.7-12.0 [facility] Neutrophils Auto (Bld) [#/Vo l]on 07-15-2024 Neutrophils (Bld) [#/Vol] Neutrophils [#/volume] in Blood by Automated count 1.4-6.5 [facility] Neutrophils (Bld) [#/Vol] 5.3 10 3/uL 1.4-6.5 [facility] Neutrophils/100 WBC Auto (Bl d)on 07-15-2024 Neutrophils/100 WBC (Bld) Automated neutrophil % 43.0-75.0 [facility] Neutrophils/100 WBC (Bld) 64.8 % 43.0-75.0 [facility] No Panel Informationon 07-15 Eosinophils # (Auto) 0.3 10 3/uL 0.0-0.7 [facility] Immature Granulocyte # (Auto) 0.05 10 3/uL High 0.00-0.03 [facility] Urine Bacteria TRACE #/HPF Abnormal NONE SEEN [facility] Urine Culture Reflexed NO [facility] Urine Glucose (UA) COLOR INTERFERENCE mg/dL Abnormal NEG ATIVE [facility] Urine Occult Blood COLOR INTERFERENCE Abnormal NEGATIVE [facility] Urine Other Casts NONE SEEN #/LPF NONE SEEN Fi [facility] Urine Other Crystals None Seen #/HPF None Seen [facility] Urine pH COLOR INTERFERENCE Abnormal 5.0-9.0 [facility] Urine RBC 75-100 #/HPF Abnormal 0-2 [facility] Urine Squamous Epithelial Cells RARE #/LPF NONE/RARE [facility] Urine Urobilinogen COLOR INTERFERENCE EU/dL Abnormal 0.2 -1.0 [facility] Urine WBC NONE SEEN #/HPF NONE SEEN [facility] Platelet mean volume Auto (B ld) [Entitic vol]on 07-15-2024 Platelet mean volume (Bld) [Entitic vol] Platelet mean volume [Entitic volume] in Blood by Automated count 9.5-13.5 [facility] Platelet mean volume (Bld) [Entitic vol] 9.6 fL 9.5-13.5 [facility] Platelets Auto (Bld) [#/Vol] on 07-15-2024 Platelets (Bld) [#/Vol] Platelets [#/volume] in Blood by Automated count 150-450 [facility] Platelets (Bld) [#/Vol] 203 10 3/uL 150-450 [facility] RBC Auto (Bld) [#/Vol]on RBC (Bld) [#/Vol] Erythrocytes [#/volu me] in Blood by Automated count 4.70-6.10 [facility] RBC (Bld) [#/Vol] 4.73 10 6/uL 4.70-6.10 [facility] Serum or plasma albumin/glob ulin mass ratioon 07-15-2024 Albumin/Globulin [Mass ratio] Serum or plasma albumin/globulin mass ratio [facility] Albumin/Globulin [Mass ratio] 1.0 {ratio} [facility] Serum or plasma anion gap de terminationon 07-15-2024 Anion gap [Moles/Vol] Serum or plasma an ion gap determination [facility] Anion gap [Moles/Vol] 12.0 mmol/L [facility] Erythrocyte distribution wid th Auto (RBC) [Ratio]on 07-07-2024 Erythrocyte distribution width (RBC) [Ratio] Erythrocyte distribution width [Ratio] by Automated count High 11.0-15.0 [facility] Estimated glomerular filtrat ion rate (GFR) non- Americanon 07-07-2024 GFR/1.73 sq M.predicted among non-blacks MDRD (S/P/Bld) [Vol rate/Area] Estimated glomerular filtration rate (GFR) non- Low >=60 mL/min/1.7 3m 2 [facility] Hematocrit Auto (Bld) [Volum e fraction]on 07-07-2024 Hematocrit (Bld) [Volume fraction] Hematocrit [Volume Fraction] of Blood by Automated count 42.0-54.0 [facility] Hemoglobin [Mass/volume] in Bloodon 07-07-2024 Hemoglobin (Bld) [Mass/Vol] Hemoglobin [Mass/volume] in Blood 14.0-18.0 [facility] Laboratory - Chemistry and C hemistry - challengeon 07-07-2024 Albumin [Mass/Vol] 3.9 g/dL 3.4-5.0 [facility] Calcium [Mass/Vol] 9.3 mg/dL 8.5-10.1 [facility] Chloride [Moles/Vol] 105 mmol/L 98-107 [facility] CO2 [Moles/Vol] 28.7 mmol/L 21.0-32.0 [facility] Creatinine [Mass/Vol] 1.87 mg/dL High 0.70-1.30 [facility] GFR/1.73 sq M.predicted MDRD (S/P/Bld) [Vol rate/Area] 43 mL/min/{1.73_m2} Low >=60 mL/min/1.7 3m 2 [facility] Glucose [Mass/Vol] 196 mg/dL High 74-106 [facility] Magnesium [Mass/Vol] 1.9 mg/dL 1.8-2.4 [facility] Potassium [Moles/Vol] 5.5 mmol/L High 3.5-5.1 [facility] Sodium [Moles/Vol] 139 mmol/L 136-145 [facility] Urate [Mass/Vol] 3.5 mg/dL 3.5-7.2 [facility] Urea nitrogen [Mass/Vol] 19.0 mg/dL High 7.0-18.0 [facility] Urea nitrogen/Creatinine [Mass ratio] 10.2 mg/mg [facility] Laboratory - Urinalysison Protein (U) [Mass/Vol] 124.0 mg/dL High <=11.9 [facility] Leukocytes [#/volume] correc soraya for nucleated erythrocytes in Blood by Automated counon 07-07-2024 WBC corrected for nucl RBC Auto (Bld) [#/Vol] Leukocytes [#/volume] corrected for nucleated erythrocytes in Blood by Automated coun 4.0-11.0 [facility] MCH Auto (RBC) [Entitic mass ]on 07-07-2024 MCH (RBC) [Entitic mass] MCH [Entitic mass] by Automated count 25.9-34.0 [facility] MCHC Auto (RBC) [Mass/Vol]on 07-07-2024 MCHC (RBC) [Mass/Vol] MCHC [Mass/volume] by Automated count 29.9-35.2 [facility] MCV Auto (RBC) [Entitic vol] on 04-08-2025 MCV (RBC) [Entitic vol] MCV [Entitic volume] by Automated count 80.0-94.0 [facility] No Panel Informationon 07-07 25-Hydroxy Vitamin D Total 41.5 ng/mL [facility] Comment on above: <20 ng/mL Vit D defi cient20-<30 ng/mL Vit D [id number] ng/mL Vit D sufficient>100 ng/mL Potential Toxicity Parathyroid Hormone (Intact) 62 pg/mL 15-65 [facility] Comment on above: Performed at: - [address] [id number] Director: Kwaku Park PhD, Phone: [phone] Phosphorus Level 3.7 mg/dL 2.6-4.7 [facility] Urine Random Creatinine 69.77 mg/dL 20.00-300. 00 [facility] Platelet mean volume Auto (B ld) [Entitic vol]on 07-07-2024 Platelet mean volume (Bld) [Entitic vol] Platelet mean volume [Entitic volume] in Blood by Automated count 9.5-13.5 [facility] Platelets Auto (Bld) [#/Vol] on 07-07-2024 Platelets (Bld) [#/Vol] Platelets [#/volume] in Blood by Automated count 150-450 [facility] RBC Auto (Bld) [#/Vol]on RBC (Bld) [#/Vol] Erythrocytes [#/volu me] in Blood by Automated count 4.70-6.10 [facility] Serum or plasma anion gap de terminationon 07-07-2024 Anion gap [Moles/Vol] Serum or plasma an ion gap determination [facility] Urine Cultureon 07-07-2024 Bacteria identified Cx Nom (U) <9,000 colonies/ml mixed bacterial skin contaminants 2 Days PERFORMED BY: [facility] [address] [place] [address] PATHOLOGIST MACHINE TOOL TECHNICIAN INSTRUCTOR DORCAS FARRELL M.D. Normal [facility] Comment on above: Performed By: #### C UU #### [facility] [address] [place] [address] [facility] Urine protein/creatinine rat ioon 07-07-2024 Protein/Creatinine (U) [Ratio] Urine protein/creatinine ratio [facility] Laboratory - Microbiology an d Antimicrobial susceptibilityon 06-10-2024 SARS-CoV-2 (COVID-19) RNA RAMO+probe Ql (Unsp spec) Positive Abnormal NEGATIVE [facility] Comment on above: This test [...] Influenza Type A Antigen Negative [facility] Comment on above: Negative for Flu A p rotein antigen. Infection due to Flu Acannot be ruled out. Flu A antigen in the sample may bebelow the detection limit of the test. Bedside Influenza Type B Antigen Negative [facility] Comment on above: Negative for Flu B p rotein antigen. Infection due to Flu Bcannot be ruled out. Flu B antigen in the sample may bebelow the detection limit of the test. Cholesterol in LDL Calc [Mas s/Vol]on 05-05-2024 Cholesterol in LDL [Mass/Vol] Cholesterol in LDL [Mass/volume] in Serum or Plasma by calculation [facility] Comment on above: <100 mg/dl [id number] 0-129 mg/dl NEAR OR ABOVE [id number] mg/dl BORDERLINE [id number] mg/dl HIGH>190 mg/dl VERY HIGH Cholesterol in VLDL Calc [Ma ss/Vol]on 05-05-2024 Cholesterol in VLDL [Mass/Vol] Cholesterol in VLDL [Mass/volume] in Serum or Plasma by calculation [facility] Estimated glomerular filtrat ion rate (GFR) non- Americanon 05-05-2024 GFR/1.73 sq M.predicted among non-blacks MDRD (S/P/Bld) [Vol rate/Area] Estimated glomerular filtration rate (GFR) non- Low >=60 mL/min/1.7 3m 2 [facility] Globulin Calc (S) [Mass/Vol] on 05-05-2024 Globulin (S) [Mass/Vol] Serum globulin measurement by calculation (mass/volume) [facility] Laboratory - Chemistry and C hemistry - challengeon 05-05-2024 Albumin [Mass/Vol] 3.7 g/dL 3.4-5.0 [facility] ALP [Catalytic activity/Vol] 162 U/L High 46-116 [facility] ALT [Catalytic activity/Vol] 17 U/L 16-63 [facility] AST [Catalytic activity/Vol] 20 U/L 15-37 [facility] Bilirubin [Mass/Vol] 0.5 mg/dL 0.2-1.0 [facility] Calcium [Mass/Vol] 9.2 mg/dL 8.5-10.1 [facility] Chloride [Moles/Vol] 104 mmol/L 98-107 [facility] Cholesterol [Mass/Vol] 117 mg/dL <=200 [facility] Cholesterol in HDL [Mass/Vol] 39 mg/dL Low 40-60 [facility] Comment on above: > or =60 mg/dl - LOW CARDIOVASCULAR RISK<40 mg/dl - HIGH CARDIOVASCULAR RISK CO2 [Moles/Vol] 28.5 mmol/L 21.0-32.0 [facility] Creatinine [Mass/Vol] 2.15 mg/dL High 0.70-1.30 [facility] GFR/1.73 sq M.predicted MDRD (S/P/Bld) [Vol rate/Area] 37 mL/min/{1.73_m2} Low >=60 mL/min/1.7 3m 2 [facility] Glucose [Mass/Vol] 220 mg/dL High 74-106 [facility] Potassium [Moles/Vol] 4.6 mmol/L 3.5-5.1 [facility] Protein [Mass/Vol] 8.0 g/dL 6.4-8.2 [facility] Sodium [Moles/Vol] 141 mmol/L 136-145 [facility] Triglyceride [Mass/Vol] 171 mg/dL High <=150 [facility] Urea nitrogen [Mass/Vol] 27.0 mg/dL High 7.0-18.0 [facility] Urea nitrogen/Creatinine [Mass ratio] 12.6 mg/mg [facility] Microalbumin [Mass/volume] i n Urineon 05-05-2024 Albumin DL <= 20 mg/L (U) [Mass/Vol] Microalbumin [Mass/volume] in Urine <=30.0 [facility] No Panel Informationon 05-05 Urine Random Creatinine 61.15 mg/dL 20.00-300. 00 [facility] Serum or plasma albumin/glob ulin mass ratioon 05-05-2024 Albumin/Globulin [Mass ratio] Serum or plasma albumin/globulin mass ratio [facility] Serum or plasma anion gap de terminationon 05-05-2024 Anion gap [Moles/Vol] Serum or plasma an ion gap determination [facility] Serum or plasma total choles terol/high density lipoprotein (HDL) cholesterol mass yulia 05-05-2024 Cholesterol.total/Cho lesterol in HDL [Mass ratio] Serum or plasma total cholesterol/high density lipoprotein (HDL) cholesterol mass rat [facility] Comment on above: 3.3 - 4.4 LOW RISK4. 4 - 7.1 AVERAGE RISK7.1 - 11.0 MODERATE RISK>11.0 HIGH RISK Urine microalbumin/creatinin e mass ratioon 05-05-2024 Albumin/Creatinine DL <= 20 mg/L (U) [Mass ratio] Urine microalbumin/creatinine mass ratio High 0.0-29.9 [facility] Comment on above: NO MICROALBUMINURIA 0-29 MG/GCLINICAL MICROALBUMINURIA 30-300 MG/GMACROALBUMINURIA >300 MG/G HbA1c HPLC (Bld) [Mass fract ion]on 04-30-2024 HbA1c (Bld) [Mass fraction] Hemoglobin A1c/Hemoglobin.total in Blood by HPLC [facility] No Panel Informationon 04-30 Bedside Glucose 158 [facility] Office Visiton 03-10-2024 Follow-up visit [id number] Lani Lizama 1950 M Date Provider Department Center 03/10/2024 KEVIN DEMPSEY MARCELINO [facility] Family History Problem Relation Age of Onset Heart attack Mother Other Father Other Brother Heart attack Maternal Grandmother Heart attack Maternal Grandfather Family Status - Relation Status Age at Mother Father Brother Maternal Grandmother Maternal Grandfather Level of Service:30784 SD OFFICE/OUTPATIENT NEW LOW MDM 30 MINUTES Normal [facility] 30on 02-14-2024 30 The patient is Moder ately Stable - Low risk of patient condition declining or worsening The patient's goals for the shift include get better The clinical goals for the shift include VSS Normal [facility] 30 The patient is Moder ately [...] and behaviors that affect risk of falls Staley fall precautions as indicated by assessment Educate [...] and prevent overall improvement and discharge Normal [facility] BASIC METABOLIC PANELon 01-30 Anion gap [Moles/Vol] 9 mmol/L Normal 7-20 [facility] Comment on above: Performed By: #### L [id number] ####[facility] (BEAKER)[address] [place] [address] Calcium [Mass/Vol] 8.4 mg/dL Low 8.6-10.3 [facility] Comment on above: Performed By: #### L [id number] ####[facility] [[email or web address] LAB (BEAKER)[address] [place] [address] Chloride [Moles/Vol] 109 mmol/L High 98-107 [facility] Comment on above: Performed By: #### L [id number] ####[facility] (BEAKER)[address] [place] [address] CO2 [Moles/Vol] 25 mmol/L Normal 21-31 [facility] Comment on above: Performed By: #### L [id number] ####[facility] (BEAKER)[address] [place] [address] Creatinine [Mass/Vol] 1.65 mg/dL High 0.70-1.30 [facility] Comment on above: Performed By: #### L [id number] ####[facility] (BEAKER)[address] [place] [address] GLOMERULAR FILTRATION RATE ML/MIN/1.73 SQ M.PREDICTED 43.8 mL/min/1.73m*2 Low >60.0 [facility] Comment on above: Result Comment: The [facility]???s estimated glomerular filtration rate (eGFR) will no [...] of individuals. Performed By: #### L [id number] ####[facility] [[email or web address] LAB ([facility])[address] [place] [address] Glucose [Mass/Vol] 118 mg/dL High 70-100 [facility] Comment on above: Performed By: #### L [id number] ####[facility] [[email or web address] LAB ([facility])[address] [place] [address] Potassium [Moles/Vol] 4.3 mmol/L Normal 3.5-5.1 [facility] Comment on above: Performed By: #### L [id number] ####[facility] [[email or web address] LAB ([facility])[address] [place] [address] Sodium [Moles/Vol] 139 mmol/L Normal 136-145 [facility] Comment on above: Performed By: #### L [id number] ####[facility] [[email or web address] ([facility] [place] [address] Urea nitrogen [Mass/Vol] 19 mg/dL Normal 7-25 [facility] Comment on above: Performed By: #### L [id number] ####[facility] [[email or web address] LAB ([facility])[address] [place] [address] UREA NITROGEN/CREATININE (MASS RATIO) IN SER/PLAS 11.5 Normal [facility] Comment on above: Performed By: #### L [id number] ####[facility] [[email or web address] LAB ([facility])[address] [address] CBCon 02-14-2024 Erythrocyte distribution width (RBC) [Ratio] 13.8 % Normal 11.5-15.0 [facility] Comment on above: Performed By: #### L [id number] ####[facility] [[email or web address] LAB ([facility])[address] [address] ERYTHROCYTE MEAN CORPUSCULAR HEMOGLOBIN CONCENTRATION (G/DL) BY AUTOMATED 32.9 g/dL Normal 32.0-35.0 [facility] Comment on above: Performed By: #### L [id number] ####[facility] [[email or web address] LAB ([facility])[address] [place] [address] Hematocrit (Bld) [Volume fraction] 38.0 % Low 39.0-55.0 [facility] Comment on above: Performed By: #### L [id number] ####[facility] [[email or web address] LAB ([facility])[address] [place] [address] Hemoglobin (Bld) [Mass/Vol] 12.5 g/dL Low 13.0-17.0 [facility] Comment on above: Performed By: #### L [id number] ####[facility] [[email or web address] LAB ([facility])[address] [place] [address] MCH (RBC) [Entitic mass] 30.1 pg Normal 27.0-33.0 [facility] Comment on above: Performed By: #### L [id number] ####[facility] [[email or web address] LAB ([facility])[address] [place] [address] MCV (RBC) [Entitic vol] 91.6 fL Normal 82.0-98.0 [facility] Comment on above: Performed By: #### L [id number] ####[facility] [[email or web address] LAB ([facility])[address] [place] [address] PLATELETS (10*3/UL) IN BLOOD AUTOMATED COUNT 176 10*3/uL Normal 150-400 [facility] Comment on above: Performed By: #### L [id number] ####[facility] [[email or web address] LAB ([facility])[address] [place] [address] RBC (Bld) [#/Vol] 4.15 10*6/uL Low 4.20-5.70 [facility] Comment on above: Performed By: #### L [id number] ####[facility] [[email or web address] LAB ([facility])[address] [place] [address] WBC (Bld) [#/Vol] 6.88 10*3/uL Normal 4.00-10.60 [facility] Comment on above: Performed By: #### L [id number] ####[facility] [[email or web address] LAB ([facility])[address] [place] [address] NURSNOTEon 02-14-2024 NURSNOTE Discharge instructio n given , patient verbalized understanding, no follow up questions asked Normal [facility] POCT GLUCOSE METER UNSOLICIT ED RESULTSon 02-14-2024 Glucose [Mass/Vol] 231 mg/dL High 70-105 [facility] Comment on above: Order Comment: Waive d Testing in the ED is performed under the ED CLIA certificate #[id number]. Result Comment: [email or web address] [email or web address] Performed By: #### L [id number] #### [facility] [[email or web address] LAB ([facility]) [address] [place] [address] Glucose [Mass/Vol] 128 mg/dL High 70-105 [facility] Comment on above: Order Comment: Waive d Testing in the ED is performed under the ED CLIA certificate #[id number]. Result Comment: [email or web address] [email or web address] Performed By: #### L [id number] ####[facility] [[email or web address]] LAB ([facility])[address] [place] [address] TROPONIN Ion 02-14-2024 Troponin I.cardiac [Mass/Vol] 1.08 ng/mL Critically high 0.00-0.04 [facility] Comment on above: Result Comment: M-SD EVIOUS CRITICAL RESULT Previous result verified on 02/14/2024 0605 on specimen/case [id number] called with component Troponin I for procedure Troponin I with value 1.69 ng/mL. Performed By: #### L [id number] #### [facility] [[email or web address]] LAB (BEAKER) [address] [place] [address] Troponin I.cardiac [Mass/Vol] 1.69 ng/mL Critically high 0.00-0.04 [facility] Comment on above: Performed By: #### L [id number] ####[facility] [[email or web address]] LAB (BEAKER)[address] [place] [address] 30on 02-13-2024 30 The patient is Moder ately Stable - Low risk of patient condition declining or worsening The patient's goals for the shift include get better The clinical goals for the shift include VSS Normal [facility] 30 The patient is Moder ately [...] and behaviors that affect risk of falls Staley fall precautions as indicated by assessment Educate [...] and behaviors that affect risk of falls Staley fall precautions as indicated by assessment Educate [...] and prevent overall improvement and discharge Normal [facility] ANTI-XA (HEPARIN LEVEL)on HEPARIN UNFRACTIONATED (U/ML) IN PPP BY CHROMOGENIC METHOD 0.85 IU/mL High 0.3-0.7 [facility] Comment on above: Order Comment: Check anti-Xa level every 6 hours while on heparin infusion, or per protocol. Result Comment: Rhona roxaban and Apixaban will interfere with the anti Xa assay used to monitor UFH and LMWH. Performed By: #### L [id number] #### [facility] [[email or web address] LAB ([facility]) [address] [place] [address] APTTon 02-13-2024 ACTIVATED PARTIAL THROMBOPLASTIN TIME IN PPP BY COAGULATION ASSAY 93.5 Seconds High 25.0-35.0 [facility] Comment on above: Order Comment: Basel ine aPTT before initiating heparin infusion. Result Comment: Clin ical significance of the APTT is questionable in the presence of heparin. Performed By: #### L [id number] #### [facility] [[email or web address]] LAB ([facility]) [address] [place] [address] B-TYPE NATRIURETIC PEPTIDEon 02-13-2024 Natriuretic peptide B (Bld) [Mass/Vol] 693 pg/mL High 0-100 [facility] Comment on above: Performed By: #### L [id number] #### [facility] [[email or web address] LAB ([facility]) [address] [place] [address] BASIC METABOLIC PANELon 01-30 Anion gap [Moles/Vol] 10 mmol/L Normal 7-20 [facility] Comment on above: Performed By: #### L [id number] #### [facility] [[email or web address] LAB ([facility]) [address] [place] [address] Calcium [Mass/Vol] 8.9 mg/dL Normal 8.6-10.3 [facility] Comment on above: Performed By: #### L [id number] #### [facility] [[email or web address] LAB ([facility]) [address] [place] [address] Chloride [Moles/Vol] 107 mmol/L Normal 98-107 [facility] Comment on above: Performed By: #### L [id number] #### [facility] [[email or web address] LAB ([facility]) [address] [place] [address] CO2 [Moles/Vol] 25 mmol/L Normal 21-31 [facility] Comment on above: Performed By: #### L [id number] #### [facility] [[email or web address] LAB ([facility]) [address] [place] [address] Creatinine [Mass/Vol] 1.61 mg/dL High 0.70-1.30 [facility] Comment on above: Performed By: #### L [id number] #### [facility] [[email or web address] LAB ([facility]) [address] [place] [address] GLOMERULAR FILTRATION RATE ML/MIN/1.73 SQ M.PREDICTED 45.2 mL/min/1.73m*2 Low >60.0 [facility] Comment on above: Result Comment: The [facility]???s estimated glomerular filtration rate (eGFR) will no [...] individuals. Performed By: #### L [id number] #### [facility] [[email or web address] LAB ([facility]) [address] [place] [address] Glucose [Mass/Vol] 174 mg/dL High 70-100 [facility] Comment on above: Performed By: #### L [id number] #### [facility] [[email or web address] LAB ([facility]) [address] [place] [address] Potassium [Moles/Vol] 4.3 mmol/L Normal 3.5-5.1 [facility] Comment on above: Performed By: #### L [id number] #### [facility] [[email or web address] LAB ([facility]) [address] [place] [address] Sodium [Moles/Vol] 138 mmol/L Normal 136-145 [facility] Comment on above: Performed By: #### L [id number] #### [facility] [[email or web address] LAB ([facility]) [address] [place] [address] Urea nitrogen [Mass/Vol] 20 mg/dL Normal 7-25 [facility] Comment on above: Performed By: #### L [id number] #### [facility] [[email or web address] [address] [place] [address] UREA NITROGEN/CREATININE (MASS RATIO) IN SER/PLAS 12.4 Normal [facility] Comment on above: Performed By: #### L [id number] #### [facility] [[email or web address] ([facility] [address] [place] [address] CBC WITH AUTO DIFFERENTIALon 02-13-2024 Basophils (Bld) [#/Vol] 0.05 10*3/uL Normal 0.00-0.20 [facility] Comment on above: Performed By: #### L [id number] ####[facility] [[email or web address] ([facility] [place] [address] Basophils/100 WBC (Bld) 0.7 % Normal 0.0-1.0 [facility] Comment on above: Performed By: #### L [id number] ####[facility] [[email or web address] ([facility] [place] [address] Eosinophils (Bld) [#/Vol] 0.13 10*3/uL Normal 0.00-0.50 [facility] Comment on above: Performed By: #### L [id number] ####[facility] [[email or web address] ([facility] [place] [address] Eosinophils/100 WBC (Bld) 1.8 % Normal 0.0-6.0 [facility] Comment on above: Performed By: #### L [id number] ####[facility] [[email or web address] ([facility] [place] [address] Erythrocyte distribution width (RBC) [Ratio] 13.4 % Normal 11.5-15.0 [facility] Comment on above: Performed By: #### L [id number] ####[facility] [[email or web address] ([facility] [place] [address] ERYTHROCYTE MEAN CORPUSCULAR HEMOGLOBIN CONCENTRATION (G/DL) BY AUTOMATED 34.1 g/dL Normal 32.0-35.0 [facility] Comment on above: Performed By: #### L [id number] ####[facility] [[email or web address] ([facility] [place] [address] Hematocrit (Bld) [Volume fraction] 40.2 % Normal 39.0-55.0 [facility] Comment on above: Performed By: #### L [id number] ####[facility] [[email or web address] LAB ([facility])[address] [place] [address] Hemoglobin (Bld) [Mass/Vol] 13.7 g/dL Normal 13.0-17.0 [facility] Comment on above: Performed By: #### L [id number] ####[facility] [[email or web address] LAB ([facility])[address] [place] [address] Immature granulocytes (Bld) [#/Vol] 0.03 10*3/uL Normal 0.00-0.20 [facility] Comment on above: Performed By: #### L [id number] ####[facility] [[email or web address] LAB ([facility])[address] [place] [address] Immature granulocytes/100 WBC (Bld) 0.4 % Normal 0.0-1.0 [facility] Comment on above: Performed By: #### L [id number] ####[facility] [[email or web address]] LAB (BEAKER)[address] [place] [address] Lymphocytes (Bld) [#/Vol] 1.64 10*3/uL Normal 1.20-4.00 [facility] Comment on above: Performed By: #### L [id number] ####[facility] [[email or web address] ([facility] [place] [address] Lymphocytes/100 WBC (Bld) 22.3 % Normal 20.0-45.0 [facility] Comment on above: Performed By: #### L [id number] ####[facility] [[email or web address] LAB (BEAKER)[address] [place] [address] MCH (RBC) [Entitic mass] 30.2 pg Normal 27.0-33.0 [facility] Comment on above: Performed By: #### L [id number] ####[facility] [[email or web address]] LAB (BEAKER)[address] [place] [address] MCV (RBC) [Entitic vol] 88.5 fL Normal 82.0-98.0 [facility] Comment on above: Performed By: #### L [id number] ####[facility] [[email or web address] ([facility] [place] [address] Monocytes (Bld) [#/Vol] 0.69 10*3/uL Normal 0.10-1.00 [facility] Comment on above: Performed By: #### L [id number] ####[facility] [[email or web address] LAB ([facility])[address] [place] [address] Monocytes/100 WBC (Bld) 9.4 % Normal 5.0-12.0 [facility] Comment on above: Performed By: #### L [id number] ####[facility] [[email or web address] LAB ([facility])[address] [place] [address] Neutrophils (Bld) [#/Vol] 4.80 10*3/uL Normal 1.60-7.60 [facility] Comment on above: Performed By: #### L [id number] ####[facility] [[email or web address] LAB ([facility])[address] [place] [address] Neutrophils/100 WBC (Bld) 65.4 % Normal 40.0-72.0 [facility] Comment on above: Performed By: #### L [id number] ####[facility] [[email or web address] ([facility] [place] [address] NRBC (PER 100 WBCS) BY AUTOMATED COUNT 0.0 % Normal 0 [facility] Comment on above: Performed By: #### L [id number] ####[facility] [[email or web address] ([facility] [place] [address] PLATELETS (10*3/UL) IN BLOOD AUTOMATED COUNT 202 10*3/uL Normal 150-400 [facility] Comment on above: Performed By: #### L [id number] ####[facility] [[email or web address] ([facility] [place] [address] RBC (Bld) [#/Vol] 4.54 10*6/uL Normal 4.20-5.70 [facility] Comment on above: Performed By: #### L [id number] ####[facility] [[email or web address]] LAB (BEAKER)[address] [facility] [place] [address] WBC (Bld) [#/Vol] 7.34 10*3/uL Normal 4.00-10.60 [facility] Comment on above: Performed By: #### L [id number] ####[facility] [[email or web address] LAB (BEAKER)[address] [place] [address] CONSULTon 02-13-2024 CONSULT ------ -- Attestation signed [...] who presented as a transferred from [facility] with NSTEMI. Cardiology planning for cath [...] (H) 08/31 (more content not included)... Normal [facility] CONSULT ------ -- Attestation signed by Yfn [...] who presented as a transferred from [facility] with NSTEMI. The patient complained of [...] and nitro drip. When he arrived to [facility] he was chest pain-free. Troponin [...] artery stenosis, Coronary artery disease, Diabetes mellitus ([facility]), Hyperlipidemia, Hypertension, PVD (peripheral vascular disease) ([facility]), and Third degree heart block ([facility]). Surgical History He has [...] PAIN pantoprazole (Pr (more content not included)... [facility] HPon 02-13-2024 HP H&P reviewed. The [...] were addressed and answered. Jenny Fernandez MD Faucets Assembler - PGY6 [facility] Pt seen and examined. Agree with above Parul Pena MD [facility] MAGNESIUMon 02-13-2024 Magnesium [Mass/Vol] 2.0 mg/dL Normal 1.9-2.7 [facility] Comment on above: Performed By: #### L [id number] #### [facility] (BE[facility]ER) [address] [place] [address] POCT GLUCOSE METER UNSOLICIT ED RESULTSon 02-13-2024 Glucose [Mass/Vol] 200 mg/dL High 70-105 [facility] Comment on above: Order Comment: Waive d Testing in the ED is performed under the ED CLIA certificate #[id number]. Result Comment: roberto macias Performed By: #### L [id number] #### [facility] ([facility]) [address] [place] [address] Glucose [Mass/Vol] 187 mg/dL High 70-105 [facility] Comment on above: Order Comment: Waive d Testing in the ED is performed under the ED CLIA certificate #[id number]. Result Comment: chava ura2 Performed By: #### L [id number] #### [facility] [[email or web address] LAB ([facility]) [address] [place] [address] Glucose [Mass/Vol] 141 mg/dL High 70-105 [facility] Comment on above: Order Comment: Waive d Testing in the ED is performed under the ED CLIA certificate #[id number]. Result Comment: [email or web address] [email or web address] Performed By: #### L [id number] #### [facility] [[email or web address] LAB ([facility]) [address] [place] [address] Glucose [Mass/Vol] 166 mg/dL High 70-105 [facility] Comment on above: Order Comment: Waive d Testing in the ED is performed under the ED CLIA certificate #[id number]. Result Comment: nita romieCarrol Performed By: #### L [id number] #### [facility] [[email or web address] LAB ([facility]) [address] [place] [address] PROTIME-INRon 02-13-2024 INR IN PPP BY COAGULATION ASSAY 1.17 High 0.90-1.10 [facility] Comment on above: Result Comment: ACCC P [...] CHEST 1995;108:[id number]. Performed By: #### L [id number] ####[facility] [[email or web address] LAB ([facility])[address] [facility] [place] [address] PROTHROMBIN TIME (PT) IN PPP BY COAGULATION ASSAY 14.9 Seconds High 12.3-14.8 [facility] Comment on above: Performed By: #### L [id number] ####[email or web address] LAB ([facility])[address] [facility] [place] [address] TROPONIN Ion 02-13-2024 Troponin I.cardiac [Mass/Vol] 2.02 ng/mL Critically high 0.00-0.04 [facility] Comment on above: Result Comment: M-SD EVIOUS CRITICAL RESULT Previous result verified on 02/13/2024 0606 on specimen/case [id number] called with component Troponin I for procedure Troponin I with value 3.34 ng/mL. Performed By: #### L [id number] ####[facility] [[email or web address]] LAB ([facility])[address] [facility]UN[facility] [place] [address] Troponin I.cardiac [Mass/Vol] 2.10 ng/mL Critically high 0.00-0.04 [facility] Comment on above: Result Comment: M-SD EVIOUS CRITICAL RESULT Previous result verified on 02/13/2024 0606 on specimen/case [id number] called with component Troponin I for procedure Troponin I with value 3.34 ng/mL. Performed By: #### L [id number] ####[facility] [[email or web address]] LAB ([facility])[address] [place] [address] Troponin I.cardiac [Mass/Vol] 3.34 ng/mL Critically high 0.00-0.04 [facility] Comment on above: Result Comment: ADILIA BRYANT INITIAL CRITICAL HIGH; RESPUN AND RETESTED Performed By: #### L [id number] #### [facility] ([facility]) [address] [place] [address] Activated partial thrombopla stin time (aPTT) in platelet poor plasma by coagulation aon 02-12-2024 aPTT Coag (PPP) [Time] Activated partial thromboplastin time (aPTT) in platelet poor plasma by coagulation a 22.3-36.2 [facility] Basophils Auto (Bld) [#/Vol] on 02-12-2024 Basophils (Bld) [#/Vol] Automated basophil count 0.0-0.1 [facility] Basophils/100 WBC Auto (Bld) on 02-12-2024 Basophils/100 WBC (Bld) Automated basophil % 0.2-2.0 [facility] Eosinophils/100 WBC Auto (Bl d)on 02-12-2024 Eosinophils/100 WBC (Bld) Automated eosinophil % 0.9-7.0 [facility] Erythrocyte distribution wid th Auto (RBC) [Ratio]on 02-12-2024 Erythrocyte distribution width (RBC) [Ratio] Erythrocyte distribution width [Ratio] by Automated count 11.0-15.0 [facility] Estimated glomerular filtrat ion rate (GFR) non- Americanon 02-12-2024 GFR/1.73 sq M.predicted among non-blacks MDRD (S/P/Bld) [Vol rate/Area] Estimated glomerular filtration rate (GFR) non- Low >=60 mL/min/1.7 3m 2 [facility] Hematocrit Auto (Bld) [Volum e fraction]on 02-12-2024 Hematocrit (Bld) [Volume fraction] Hematocrit [Volume Fraction] of Blood by Automated count 42.0-54.0 [facility] Hemoglobin [Mass/volume] in Bloodon 02-12-2024 Hemoglobin (Bld) [Mass/Vol] Hemoglobin [Mass/volume] in Blood 14.0-18.0 [facility] INR in Platelet poor plasma by Coagulation assayon 02-12-2024 INR Coag (PPP) [Relative time] INR in Platelet poor plasma by Coagulation assay [facility] Comment on above: DESIRED INR:2.0-3.0 CONDITIONS NOT LISTED BELOW2.5-3.5 FOR PROSTHETIC HEART VALVE REPLACEMENT2.5-3.5 RECURRENT THROMBOSIS Laboratory - Chemistry and C hemistry - challengeon 02-12-2024 Calcium [Mass/Vol] 9.4 mg/dL 8.5-10.1 [facility] Chloride [Moles/Vol] 106 mmol/L 98-107 [facility] CO2 [Moles/Vol] 22.9 mmol/L 21.0-32.0 [facility] Creatinine [Mass/Vol] 1.97 mg/dL High 0.70-1.30 [facility] GFR/1.73 sq M.predicted MDRD (S/P/Bld) [Vol rate/Area] 41 mL/min/{1.73_m2} Low >=60 mL/min/1.7 3m 2 [facility] Glucose [Mass/Vol] 236 mg/dL High 74-106 [facility] Potassium [Moles/Vol] 3.9 mmol/L 3.5-5.1 [facility] Comment on above: SPECIMEN SLIGHTLY HE MOLYZED Sodium [Moles/Vol] 141 mmol/L 136-145 [facility] Urea nitrogen [Mass/Vol] 21.0 mg/dL High 7.0-18.0 [facility] Urea nitrogen/Creatinine [Mass ratio] 10.7 mg/mg [facility] Laboratory - Hematology and Cell countson 02-12-2024 Immature granulocytes/100 WBC (Bld) 0.5 % 0.0-0.5 [facility] Leukocytes [#/volume] correc soraya for nucleated erythrocytes in Blood by Automated counon 02-12-2024 WBC corrected for nucl RBC Auto (Bld) [#/Vol] Leukocytes [#/volume] corrected for nucleated erythrocytes in Blood by Automated coun 4.0-11.0 [facility] Lymphocytes Auto (Bld) [#/Vo l]on 02-12-2024 Lymphocytes (Bld) [#/Vol] Lymphocytes [#/volume] in Blood by Automated count 1.2-3.8 [facility] Lymphocytes/100 WBC Auto (Bl d)on 02-12-2024 Lymphocytes/100 WBC (Bld) Lymphocytes/100 leukocytes in Blood by Automated count 20.5-60.0 [facility] MCH Auto (RBC) [Entitic mass ]on 02-12-2024 MCH (RBC) [Entitic mass] MCH [Entitic mass] by Automated count 25.9-34.0 [facility] MCHC Auto (RBC) [Mass/Vol]on 02-12-2024 MCHC (RBC) [Mass/Vol] MCHC [Mass/volume] by Automated count 29.9-35.2 [facility] MCV Auto (RBC) [Entitic vol] on 02-12-2024 MCV (RBC) [Entitic vol] MCV [Entitic volume] by Automated count 80.0-94.0 [facility] Monocytes Auto (Bld) [#/Vol] on 02-12-2024 Monocytes (Bld) [#/Vol] Automated blood monocyte count 0.3-0.8 [facility] Monocytes/100 WBC Auto (Bld) on 02-12-2024 Monocytes/100 WBC (Bld) Automated monocyte % 1.7-12.0 [facility] Neutrophils Auto (Bld) [#/Vo l]on 02-12-2024 Neutrophils (Bld) [#/Vol] Neutrophils [#/volume] in Blood by Automated count 1.4-6.5 [facility] Neutrophils/100 WBC Auto (Bl d)on 02-12-2024 Neutrophils/100 WBC (Bld) Automated neutrophil % 43.0-75.0 [facility] No Panel Informationon 02-11 Troponin I High Sensitivity 85.0 pg/mL Critically high 4.0-76.1 [facility] Comment on above: RESULTS CALLED [...] Eosinophils # (Auto) 0.2 10 3/uL 0.0-0.7 [facility] Immature Granulocyte # (Auto) 0.04 10 3/uL High 0.00-0.03 [facility] Platelet mean volume Auto (B ld) [Entitic vol]on 02-12-2024 Platelet mean volume (Bld) [Entitic vol] Platelet mean volume [Entitic volume] in Blood by Automated count 9.5-13.5 [facility] Platelets Auto (Bld) [#/Vol] on 02-12-2024 Platelets (Bld) [#/Vol] Platelets [#/volume] in Blood by Automated count 150-450 [facility] Prothrombin time (PT)on 01-30 PT Coag (PPP) [Time] Prothrombin time (PT) 9.0- 11.6 [facility] RBC Auto (Bld) [#/Vol]on RBC (Bld) [#/Vol] Erythrocytes [#/volu me] in Blood by Automated count 4.70-6.10 [facility] Serum or plasma anion gap de terminationon 02-12-2024 Anion gap [Moles/Vol] Serum or plasma an ion gap determination [facility] Erythrocyte distribution wid th Auto (RBC) [Ratio]on 12-30-2023 Erythrocyte distribution width (RBC) [Ratio] 14.3 % 11.0-15.0 [facility] Estimated glomerular filtrat ion rate (GFR) non- Americanon 12-30-2023 GFR/1.73 sq M.predicted among non-blacks MDRD (S/P/Bld) [Vol rate/Area] 31 mL/min/{1.73_m2} Low >=60 [facility] Hematocrit Auto (Bld) [Volum e fraction]on 12-30-2023 Hematocrit (Bld) [Volume fraction] 45.2 % 42.0-54.0 [facility] Hemoglobin [Mass/volume] in Bloodon 12-30-2023 Hemoglobin (Bld) [Mass/Vol] 14.8 g/dL 14.0-18.0 [facility] Laboratory - Chemistry and C hemistry - challengeon 12-30-2023 Albumin [Mass/Vol] 3.8 g/dL 3.4-5.0 [facility] Calcium [Mass/Vol] 9.9 mg/dL 8.5-10.1 [facility] Chloride [Moles/Vol] 103 mmol/L 98-107 [facility] CO2 [Moles/Vol] 27.9 mmol/L 21.0-32.0 [facility] Creatinine [Mass/Vol] 2.10 mg/dL High 0.70-1.30 [facility] GFR/1.73 sq M.predicted MDRD (S/P/Bld) [Vol rate/Area] 38 mL/min/{1.73_m2} Low >=60 [facility] Glucose [Mass/Vol] 207 mg/dL High 74-106 [facility] Magnesium [Mass/Vol] 2.1 mg/dL 1.8-2.4 [facility] Potassium [Moles/Vol] 4.7 mmol/L 3.5-5.1 [facility] Sodium [Moles/Vol] 137 mmol/L 136-145 [facility] Urate [Mass/Vol] 4.1 mg/dL 3.5-7.2 [facility] Urea nitrogen [Mass/Vol] 29.0 mg/dL High 7.0-18.0 [facility] Urea nitrogen/Creatinine [Mass ratio] 13.8 mg/mg [facility] Laboratory - Urinalysison Protein (U) [Mass/Vol] 26.9 mg/dL High <=11.9 [facility] Leukocytes [#/volume] correc soraya for nucleated erythrocytes in Blood by Automated counon 12-30-2023 WBC corrected for nucl RBC Auto (Bld) [#/Vol] 8.7 10 3/uL 4.0-11.0 [facility] MCH Auto (RBC) [Entitic mass ]on 12-30-2023 MCH (RBC) [Entitic mass] 30.0 pg 25.9-34.0 [facility] MCHC Auto (RBC) [Mass/Vol]on 12-30-2023 MCHC (RBC) [Mass/Vol] 32.7 g/dL 29.9-35.2 [facility] MCV Auto (RBC) [Entitic vol] on 12-30-2023 MCV (RBC) [Entitic vol] 91.7 fL 80.0-94.0 [facility] No Panel Informationon 12-29 25-Hydroxy Vitamin D Total 47.5 ng/mL [facility] Comment on above: <20 ng/mL Vit D defi cient20-<30 ng/mL Vit D leobstpurnux28-327 ng/mL Vit D sufficient>100 ng/mL Potential Toxicity Parathyroid Hormone (Intact) 27 pg/mL 15-65 [facility] Comment on above: Performed at: [facility] [place] [id number] Director: Kwaku Park PhD, Phone: [phone] Phosphorus Level 3.7 mg/dL 2.6-4.7 [facility] Urine Random Creatinine 85.11 mg/dL 20.00-300. 00 [facility] Platelet mean volume Auto (B ld) [Entitic vol]on 12-30-2023 Platelet mean volume (Bld) [Entitic vol] 9.3 fL Low 9.5-13.5 [facility] Platelets Auto (Bld) [#/Vol] on 12-30-2023 Platelets (Bld) [#/Vol] 193 10 3/uL 150-450 [facility] RBC Auto (Bld) [#/Vol]on RBC (Bld) [#/Vol] 4.93 10 6/uL 4.70-6.10 [facility] Serum or plasma anion gap de terminationon 12-30-2023 Anion gap [Moles/Vol] 10.8 mmol/L [facility] Urine protein/creatinine rat ioon 12-30-2023 Protein/Creatinine (U) [Ratio] 0.32 [facility] HbA1c HPLC (Bld) [Mass fract ion]on 10-17-2023 HbA1c (Bld) [Mass fraction] 7.5 % [facility] No Panel Informationon 10-16 Bedside Glucose 108 [facility] Activated partial thrombopla stin time (aPTT) in platelet poor plasma by coagulation aon 09-26-2023 aPTT Coag (PPP) [Time] 28.8 s 22.3-36.2 [facility] Basophils Auto (Bld) [#/Vol] on 09-26-2023 Basophils (Bld) [#/Vol] 0.1 10 3/uL 0.0-0.1 [facility] Basophils/100 WBC Auto (Bld) on 09-26-2023 Basophils/100 WBC (Bld) 0.6 % 0.2-2.0 [facility] Eosinophils/100 WBC Auto (Bl d)on 09-26-2023 Eosinophils/100 WBC (Bld) 2.4 % 0.9-7.0 [facility] Erythrocyte distribution wid th Auto (RBC) [Ratio]on 09-26-2023 Erythrocyte distribution width (RBC) [Ratio] 14.3 % 11.0-15.0 [facility] Estimated glomerular filtrat ion rate (GFR) non- Americanon 09-26-2023 GFR/1.73 sq M.predicted among non-blacks MDRD (S/P/Bld) [Vol rate/Area] 39 mL/min/{1.73_m2} Low >=60 [facility] Globulin Calc (S) [Mass/Vol] on 09-26-2023 Globulin (S) [Mass/Vol] 4.0 g/dL [facility] Hematocrit Auto (Bld) [Volum e fraction]on 09-26-2023 Hematocrit (Bld) [Volume fraction] 49.4 % 42.0-54.0 [facility] Hemoglobin [Mass/volume] in Bloodon 09-26-2023 Hemoglobin (Bld) [Mass/Vol] 16.0 g/dL 14.0-18.0 [facility] INR in Platelet poor plasma by Coagulation assayon 09-26-2023 INR Coag (PPP) [Relative time] 0.99 {INR} [facility] Comment on above: DESIRED INR:2.0-3.0 CONDITIONS NOT LISTED BELOW2.5-3.5 FOR PROSTHETIC HEART VALVE REPLACEMENT2.5-3.5 RECURRENT THROMBOSIS Laboratory - Chemistry and C hemistry - challengeon 09-26-2023 Albumin [Mass/Vol] 4.1 g/dL 3.4-5.0 [facility] ALP [Catalytic activity/Vol] 146 U/L High 46-116 [facility] ALT [Catalytic activity/Vol] 32 U/L 16-63 [facility] AST [Catalytic activity/Vol] 26 U/L 15-37 [facility] Bilirubin [Mass/Vol] 0.7 mg/dL 0.2-1.0 [facility] Calcium [Mass/Vol] 9.2 mg/dL 8.5-10.1 [facility] Chloride [Moles/Vol] 104 mmol/L 98-107 [facility] CO2 [Moles/Vol] 24.8 mmol/L 21.0-32.0 [facility] Creatinine [Mass/Vol] 1.72 mg/dL High 0.70-1.30 [facility] GFR/1.73 sq M.predicted MDRD (S/P/Bld) [Vol rate/Area] 48 mL/min/{1.73_m2} Low >=60 [facility] Glucose [Mass/Vol] 206 mg/dL High 74-106 [facility] Potassium [Moles/Vol] 4.2 mmol/L 3.5-5.1 [facility] Protein [Mass/Vol] 8.1 g/dL 6.4-8.2 [facility] Sodium [Moles/Vol] 141 mmol/L 136-145 [facility] Urea nitrogen [Mass/Vol] 26.0 mg/dL High 7.0-18.0 [facility] Urea nitrogen/Creatinine [Mass ratio] 15.1 mg/mg [facility] Laboratory - Hematology and Cell countson 09-26-2023 Immature granulocytes/100 WBC (Bld) 0.3 % 0.0-0.5 [facility] Leukocytes [#/volume] correc soraya for nucleated erythrocytes in Blood by Automated counon 09-26-2023 WBC corrected for nucl RBC Auto (Bld) [#/Vol] 10.5 10 3/uL 4.0-11.0 [facility] Lymphocytes Auto (Bld) [#/Vo l]on 09-26-2023 Lymphocytes (Bld) [#/Vol] 2.0 10 3/uL 1.2-3.8 [facility] Lymphocytes/100 WBC Auto (Bl d)on 09-26-2023 Lymphocytes/100 WBC (Bld) 18.7 % Low 20.5-60.0 [facility] MCH Auto (RBC) [Entitic mass ]on 09-26-2023 MCH (RBC) [Entitic mass] 28.4 pg 25.9-34.0 [facility] MCHC Auto (RBC) [Mass/Vol]on 09-26-2023 MCHC (RBC) [Mass/Vol] 32.4 g/dL 29.9-35.2 [facility] MCV Auto (RBC) [Entitic vol] on 09-26-2023 MCV (RBC) [Entitic vol] 87.7 fL 80.0-94.0 [facility] Monocytes Auto (Bld) [#/Vol] on 09-26-2023 Monocytes (Bld) [#/Vol] 0.8 10 3/uL 0.3-0.8 [facility] Monocytes/100 WBC Auto (Bld) on 09-26-2023 Monocytes/100 WBC (Bld) 7.3 % 1.7-12.0 [facility] Neutrophils Auto (Bld) [#/Vo l]on 09-26-2023 Neutrophils (Bld) [#/Vol] 7.4 10 3/uL High 1.4-6.5 [facility] Neutrophils/100 WBC Auto (Bl d)on 09-26-2023 Neutrophils/100 WBC (Bld) 70.7 % 43.0-75.0 [facility] No Panel Informationon 09-25 Troponin I High Sensitivity 8614.2 pg/mL High 4.0-76.1 [facility] Comment on above: RESULTS CALLED [...] Eosinophils # (Auto) 0.3 10 3/uL 0.0-0.7 [facility] Immature Granulocyte # (Auto) 0.03 10 3/uL 0.00-0.03 [facility] Platelet mean volume Auto (B ld) [Entitic vol]on 09-26-2023 Platelet mean volume (Bld) [Entitic vol] 10.0 fL 9.5-13.5 [facility] Platelets Auto (Bld) [#/Vol] on 09-26-2023 Platelets (Bld) [#/Vol] 194 10 3/uL 150-450 [facility] Prothrombin time (PT)on 08-31 PT Coag (PPP) [Time] 10.5 s 9.0-11.6 [facility] RBC Auto (Bld) [#/Vol]on RBC (Bld) [#/Vol] 5.63 10 6/uL 4.70-6.10 [facility] Serum or plasma albumin/glob ulin mass ratioon 09-26-2023 Albumin/Globulin [Mass ratio] 1.0 {ratio} [facility] Serum or plasma anion gap de terminationon 09-26-2023 Anion gap [Moles/Vol] 16.4 mmol/L [facility] No Panel Informationon 08-26 Prostate Specific Antigen Screen 1.37 ng/mL <=4.00 [facility] Erythrocyte distribution wid th Auto (RBC) [Ratio]on 06-24-2023 Erythrocyte distribution width (RBC) [Ratio] 14.6 % 11.0-15.0 [facility] Estimated glomerular filtrat ion rate (GFR) non- Americanon 06-24-2023 GFR/1.73 sq M.predicted among non-blacks MDRD (S/P/Bld) [Vol rate/Area] 38 mL/min/{1.73_m2} >=60 [facility] Hematocrit Auto (Bld) [Volum e fraction]on 06-24-2023 Hematocrit (Bld) [Volume fraction] 46.2 % 42.0-54.0 [facility] Hemoglobin [Mass/volume] in Bloodon 06-24-2023 Hemoglobin (Bld) [Mass/Vol] 14.5 g/dL 14.0-18.0 [facility] Laboratory - Chemistry and C hemistry - challengeon 06-24-2023 Albumin [Mass/Vol] 4.0 g/dL 3.4-5.0 [facility] Calcium [Mass/Vol] 9.2 mg/dL 8.5-10.1 [facility] Chloride [Moles/Vol] 106 mmol/L 98-107 [facility] CO2 [Moles/Vol] 25.4 mmol/L 21.0-32.0 [facility] Creatinine [Mass/Vol] 1.76 mg/dL 0.70-1.30 [facility] GFR/1.73 sq M.predicted MDRD (S/P/Bld) [Vol rate/Area] 47 mL/min/{1.73_m2} >=60 [facility] Glucose [Mass/Vol] 212 mg/dL 74-106 [facility] Magnesium [Mass/Vol] 2.1 mg/dL 1.8-2.4 [facility] Potassium [Moles/Vol] 4.5 mmol/L 3.5-5.1 [facility] Sodium [Moles/Vol] 142 mmol/L 136-145 [facility] Urate [Mass/Vol] 4.3 mg/dL 3.5-7.2 [facility] Urea nitrogen [Mass/Vol] 30.0 mg/dL 7.0-18.0 [facility] Urea nitrogen/Creatinine [Mass ratio] 17.0 mg/mg [facility] Laboratory - Urinalysison Protein (U) [Mass/Vol] 11.5 mg/dL <=11.9 [facility] Leukocytes [#/volume] correc soraya for nucleated erythrocytes in Blood by Automated counon 06-24-2023 WBC corrected for nucl RBC Auto (Bld) [#/Vol] 9.6 10 3/uL 4.0-11.0 [facility] MCH Auto (RBC) [Entitic mass ]on 06-24-2023 MCH (RBC) [Entitic mass] 28.5 pg 25.9-34.0 [facility] MCHC Auto (RBC) [Mass/Vol]on 06-24-2023 MCHC (RBC) [Mass/Vol] 31.4 g/dL 29.9-35.2 [facility] MCV Auto (RBC) [Entitic vol] on 06-24-2023 MCV (RBC) [Entitic vol] 90.8 fL 80.0-94.0 [facility] No Panel Informationon 06-23 25-Hydroxy Vitamin D Total 42.5 ng/mL [facility] Comment on above: <20 ng/mL Vit D defi cient20-<30 ng/mL Vit D [id number] ng/mL Vit D sufficient>100 ng/mL Potential Toxicity Parathyroid Hormone (Intact) 48 pg/mL 15-65 [facility] Comment on above: Performed at: [facility] [place] [place] [id number] Director: Kwaku Park PhD, Phone: [phone] Phosphorus Level 3.6 mg/dL 2.6-4.7 [facility] Urine Random Creatinine 60.60 mg/dL 20.00-300. 00 [facility] Platelet mean volume Auto (B ld) [Entitic vol]on 06-24-2023 Platelet mean volume (Bld) [Entitic vol] 10.2 fL 9.5-13.5 [facility] Platelets Auto (Bld) [#/Vol] on 06-24-2023 Platelets (Bld) [#/Vol] 178 10 3/uL 150-450 [facility] RBC Auto (Bld) [#/Vol]on RBC (Bld) [#/Vol] 5.09 10 6/uL 4.70-6.10 [facility] Serum or plasma anion gap de terminationon 06-24-2023 Anion gap [Moles/Vol] 15.1 mmol/L [facility] Urine protein/creatinine rat ioon 06-24-2023 Protein/Creatinine (U) [Ratio] 0.19 [facility] HbA1c HPLC (Bld) [Mass fract ion]on 06-18-2023 HbA1c (Bld) [Mass fraction] 6.1 % [facility] No Panel Informationon 06-17 Bedside Glucose 150 [facility] Cholesterol in LDL Calc [Mas s/Vol]on 06-13-2023 Cholesterol in LDL [Mass/Vol] 29.0 mg/dL [facility] Comment on above: <100 mg/dl [id number] 0-129 mg/dl NEAR OR ABOVE [id number] mg/dl BORDERLINE [id number] mg/dl HIGH>190 mg/dl VERY HIGH Cholesterol in VLDL Calc [Ma ss/Vol]on 06-13-2023 Cholesterol in VLDL [Mass/Vol] 24.8 mg/dL [facility] Laboratory - Chemistry and C hemistry - challengeon 06-13-2023 Cholesterol [Mass/Vol] 87 mg/dL <=200 [facility] Cholesterol in HDL [Mass/Vol] 34 mg/dL 40-60 [facility] Comment on above: > or =60 mg/dl - LOW CARDIOVASCULAR RISK<40 mg/dl - HIGH CARDIOVASCULAR RISK Triglyceride [Mass/Vol] 124 mg/dL <=150 [facility] Serum or plasma total choles terol/high density lipoprotein (HDL) cholesterol mass yulia 06-13-2023 Cholesterol.total/Cho lesterol in HDL [Mass ratio] 2.6 {ratio} [facility] Comment on above: 3.3 - 4.4 LOW RISK4. 4 - 7.1 AVERAGE RISK7.1 - 11.0 MODERATE RISK>11.0 HIGH RISK A1C HEMOGLOBINon 03-12-2023 HbA1c (Bld) [Mass fraction] 7.1 % [employer] Other Glucose - FINGER STICKon Glucose [Mass/Vol] 151 mg/dL [employer] Other HbA1c (Bld) [Mass fraction]o n 03-12-2023 A1C HEMOGLOBIN [employer] Other CT CHEST WO CONon 08-09-2022 CT [...] by: HAZEL SCHILLING Date: 2022-08-09 14:00 Normal [facility] A1C HEMOGLOBINon 06-26-2022 HbA1c (Bld) [Mass fraction] 7.4 % [employer] Other Glucose - FINGER STICKon Glucose [Mass/Vol] 267 mg/dL [employer] Other HbA1c (Bld) [Mass fraction]o n 06-26-2022 A1C HEMOGLOBIN [employer] Other PTH INTACTon 06-26-2022 PTH, Intact 37 pg/mL Normal 15-65 [facility] Comment on above: Performed By: #### C MP, CMADM #### [facility] [address] [place] [address] Dr. Mirza Sadler FERRITINon 06-25-2022 Ferritin [Mass/Vol] 269.0 ng/mL Normal 26.0-388.0 [facility] Comment on above: Performed By: #### B METER RECORD CLERK #### [facility] [address] [place] [address] Dr. Mirza Sadler HEMOGRAM AND PLATELon 2022 Hematocrit (Bld) [Volume fraction] 44.7 % Normal 42.0-54.0 [facility] Comment on above: Performed By: #### P T, PTT #### [facility] [address] [place] [address] Dr. Mirza Sadler Hemoglobin (Bld) [Mass/Vol] 15.1 g/dL Normal 14.0-18.0 [facility] Comment on above: Performed By: #### P T, PTT #### [facility] [address] [place] [address] Dr. Mirza Sadler MCH (RBC) [Entitic mass] 30.0 pg Normal 25.9-34.0 [facility] Comment on above: Performed By: #### P T, PTT #### [facility] [address] [place] [address] Dr. Mirza Sadler MCHC (RBC) [Mass/Vol] 33.8 g/dL Normal 29.9-35.2 [facility] [facility] Comment on above: Performed By: #### P T, PTT #### [facility] [address] [place] [address] Dr. Mirza Sadler MCV (RBC) [Entitic vol] 88.9 fL Normal 80.0-94.0 [facility] Comment on above: Performed By: #### P T, PTT #### [facility] [address] [place] [address] Dr. Mirza Sadler PLT 199 103/ul Normal 150-450 [facility] Comment on above: Performed By: #### P T, PTT #### [facility] [address] [place] [address] Dr. Mirza Sadler RBC 5.03 106/ul Normal 4.70-6.10 [facility] Comment on above: Performed By: #### P T, PTT #### [facility] [address] [address] [address] Mirza Sadler WBC 8.7 103/ul Normal 4.0-11.0 [facility] Comment on above: Performed By: #### P T, PTT #### [facility] [address] [address] [address] Mirza Sadler IRON AND TIBCon 06-25-2022 % SATURATION 28.6 % Normal [facility] Comment on above: Performed By: #### B METER RECORD CLERK #### [facility] [address] [place] [address] Dr. Mirza Sadler Iron [Mass/Vol] 82.0 ug/dL Normal 65.0-175.0 [facility] Comment on above: Performed By: #### B METER RECORD CLERK #### [facility] [address] [place] [address] Dr. Mirza Sadler TIBC DIRECT 287.0 ug/dL Normal 250.0-450. 0 [facility] Comment on above: Performed By: #### B METER RECORD CLERK #### [facility] [address] [place] [address] Dr. Mirza Sadler MAGNESIUMon 06-25-2022 Magnesium [Mass/Vol] 2.0 mg/dL Normal 1.8-2.4 [facility] Comment on above: Performed By: #### B METER RECORD CLERK #### [facility] [address] [place] [address] Dr. Mirza Sadler RENAL FUNCTION PANELon 06-25 Albumin [Mass/Vol] 4.2 g/dL Normal 3.4-5.0 [facility] Comment on above: Performed By: #### B METER RECORD CLERK #### [facility] [address] [place] [address] Dr. Mirza Sadler Calcium [Mass/Vol] 9.3 mg/dL Normal 8.5-10.1 [facility] Comment on above: Performed By: #### B METER RECORD CLERK #### [facility] [address] [place] [address] Dr. Mirza Sadler Chloride [Moles/Vol] 108 mmol/L Critically high 98-107 [facility] Comment on above: Performed By: #### B METER RECORD CLERK #### [facility] [address] [address] [address] Mirza Sadler CO2 [Moles/Vol] 29.5 mmol/L Normal 21.0-32.0 [facility] Comment on above: Performed By: #### B METER RECORD CLERK #### [facility] [address] [address] [address] Mirza Sadler Creatinine [Mass/Vol] 1.87 mg/dL Critically high 0.70-1.30 [facility] Comment on above: Performed By: #### B METER RECORD CLERK #### [facility] [address] [address] [address] Mirza Sadler EGFR-AF SAMOAN 43 mL/min/1.73m2 Critically low >=60 [facility] Comment on above: Performed By: #### B METER RECORD CLERK #### [facility] [address] [address] [address] Mirza Sadler EGFR-NON AF SAMOAN 36 mL/min/1.73m2 Critically low >=60 [facility] Comment on above: Performed By: #### B METER RECORD CLERK #### [facility] [address] [address] [address] Mirza Sadler Glucose [Mass/Vol] 181 mg/dL Critically high 74-106 [facility] Comment on above: Performed By: #### B METER RECORD CLERK #### [facility] [address] [address] [address] Mirza Sadler Phosphate [Mass/Vol] 4.8 mg/dL Critically high 2.6-4.7 [facility] Comment on above: Performed By: #### B METER RECORD CLERK #### [facility] [address] [address] [address] Mirza Sadler Potassium [Moles/Vol] 4.8 mmol/L Normal 3.5-5.1 [facility] Comment on above: Performed By: #### B METER RECORD CLERK #### [facility] [address] [address] [address] Mirza Sadler Sodium [Moles/Vol] 146 mmol/L Critically high 136-145 [facility] Comment on above: Performed By: #### B METER RECORD CLERK #### [facility] [address] [address] [address] Mirza Sadler Urea nitrogen [Mass/Vol] 40.0 mg/dL Critically high 7.0-18.0 [facility] Comment on above: Performed By: #### B METER RECORD CLERK #### [facility] [address] [place] [address] Dr. Mirza Sadler UA RANDOM W/MICROSCOPICon BACTERIA NONE SEEN Normal NONE SEEN [facility] Comment on above: Performed By: #### H STROPN #### [facility] [address] [place] [address] Dr. Mirza Sadler Bilirubin Ql (U) Negative Normal NEGATIVE [facility] Comment on above: Performed By: #### H STROPN #### [facility] [address] [place] [address] Dr. Mirza Sadler CAST NONE SEEN Normal NONE SEEN [facility] Comment on above: Performed By: #### H STROPN #### [facility] [address] [place] [address] Dr. Mirza Sadler Clarity (U) CLEAR Normal CLEAR [facility] Comment on above: Performed By: #### H STROPN #### [facility] [address] [place] [address] Dr. Mirza Sadler Color (U) LT. YELLOW Normal YELLOW [facility] Comment on above: Performed By: #### H STROPN #### [facility] [address] [place] [address] Dr. Mirza Sadler Crystals LM Nom (Urine sed) NONE SEEN Normal NONE SEEN [facility] Comment on above: Performed By: #### H STROPN #### [facility] [address] [place] [address] Dr. Mirza Sadler Epithelial cells LM Ql (Urine sed) FEW Abnormal NONE SEEN /RARE [facility] Comment on above: Performed By: #### H STROPN #### [facility] [address] [place] [address] Dr. Mirza Sadler Glucose Ql (U) 500 mg/dl Abnormal NEGATIVE [facility] Comment on above: Performed By: #### H STROPN #### [facility] [address] [address] [address] Mirza Sadler Hemoglobin Ql (U) Negative Normal NEGATIVE [facility] Comment on above: Performed By: #### H STROPN #### [facility] [address] [address] [address] Mirza Sadler Ketones Ql (U) Negative Normal NEGATIVE [facility] Comment on above: Performed By: #### H STROPN #### [facility] [address] [address] [address] Mirza Sadler LEUKOCYTES Negative Normal NEGATIVE [facility] Comment on above: Performed By: #### H STROPN #### [facility] [address] [address] [address] Mirza Sadler MUCOUS NONE SEEN Normal NONE SEEN [facility] Comment on above: Performed By: #### H STROPN #### [facility] [address] [place] [address] Dr. Mirza Sadler Nitrite Ql (U) Negative Normal NEGATIVE [facility] Comment on above: Performed By: #### H STROPN #### [facility] [address] [place] [address] Dr. Mirza Sadler pH (U) 5.5 [pH] Normal 5-9 [facility] Comment on above: Performed By: #### H STROPN #### [facility] [address] [place] [address] Dr. Mirza Sadler RBC 0-2 Normal 0-2 [facility] Comment on above: Performed By: #### H STROPN #### [facility] [address] [place] [address] Dr. Mirza Sadler SPEC GRAVITY 1.015 Normal 1.005-<=1. 025 [facility] Comment on above: Performed By: #### H STROPN #### [facility] [address] [place] [address] Dr. Mirza Sadler UA PROTEIN Negative Normal NEGATIVE/ TRACE [facility] Comment on above: Performed By: #### H STROPN #### [facility] [address] [address] [address] Mirza Sadler Urobilinogen Qn (U) 0.2 {Luisito'U}/dL Normal 0.2 - 1. 0 [facility] Comment on above: Performed By: #### H STROPN #### [facility] [address] [place] [address] Dr. Mirza Sadler WBC NONE SEEN Normal NONE SEEN [facility] Comment on above: Performed By: #### H STROPN #### [facility] [address] [place] [address] Dr. Mirza Sadler URIC ACID SERUMon 06-25-2022 Urate [Mass/Vol] 6.1 mg/dL Normal 3.5-7.2 [facility] Comment on above: Performed By: #### B METER RECORD CLERK #### [facility] [address] [place] [address] Dr. Mirza Sadler URINE T PROTEIN CREAT RATIOo n 06-25-2022 Protein (U) [Mass/Vol] 9.7 mg/dL Normal <=12.0 [facility] Comment on above: Performed By: #### C TEGAN MARIN #### [facility] [address] [place] [address] Dr. Mirza Sadler UR PROT CREAT RAT 0.14 Normal [facility] Comment on above: Performed By: #### C TEGAN MARIN #### [facility] [address] [place] [address] Dr. Mirza Sadler URINE CREAT 71.45 mg/dL Normal 20.00-300. 00 [facility] Comment on above: Performed By: #### C TEGAN MARIN #### [facility] [address] [place] [address] Dr. Mirza Sadler VITAMIN D 25 OHon 06-25-2022 VIT D 25-OH 44.7 ng/mL Normal [facility] Comment on above: Performed By: #### E RUR #### [facility] [address] [place] [address] Dr. Mirza Sadler VIT D RANGES SEE BELOW Normal [facility] Comment on above: Result Comment: <20 ng/mL Vit D deficient 20 - <30 ng/mL Vit D insufficient 30 - 100 ng/mL Vit D sufficient >100 ng/mL Potential Toxicity Performed By: #### E RUR #### [facility] [address] [address] [address] Mirza Sadler LIPID PROFILEon 06-18-2022 CHOL-HDL RATIO NORM SEE BELOW Normal [facility] Comment on above: Result Comment: 3.3 - 4.4 LOW RISK 4.4 - 7.1 AVERAGE RISK 7.1 - 11.0 MODERATE RISK >11.0 HIGH RISK Performed By: #### H STROPN #### [facility] [address] [address] [address] Mirza Sadler Cholesterol [Mass/Vol] 136 mg/dL Normal <=200 [facility] Comment on above: Performed By: #### H STROPN #### [facility] [address] [address] [address] Mirza Sadler Cholesterol in HDL [Mass/Vol] 38 mg/dL Critically low 40-60 [facility] Comment on above: Performed By: #### H STROPN #### [facility] [address] [address] [address] Mirza Sadler Cholesterol in LDL [Mass/Vol] 69.6 mg/dL Normal [facility] Comment on above: Performed By: #### H STROPN #### [facility] [address] [address] [address] Mirza Sadler Cholesterol.total/Cho lesterol in HDL [Mass ratio] 3.6 {ratio} Normal [facility] Comment on above: Performed By: #### H STROPN #### [facility] [address] [address] [address] Mirza Sadler HDL NORMAL > or = 60 mg/dl - LO W CARDIOVASCULAR RISK <40 mg/dl - HIGH CARDIOVASCULAR RISK Normal [facility] Comment on above: Performed By: #### H STROPN #### [facility] [address] [address] [address] Mirza Sadler LDL CALC NORMAL SEE BELOW Normal [facility] Comment on above: Result Comment: <100 mg/dl OPTIMAL 100 - 129 mg/dl NEAR OR ABOVE OPTIMAL 130 - 159 mg/dl BORDERLINE HIGH 160 - 189 mg/dl HIGH >190 mg/dl VERY HIGH Performed By: #### H STROPN #### [facility] [address] [place], [place] [address] Dr. Mirza Sadler Triglyceride [Mass/Vol] 142 mg/dL Normal <=150 [facility] Comment on above: Performed By: #### H STROPN #### [facility] [address] [address] [address] Mirza Sadler VLDL CALC 28.4 mg/dL Normal [facility] Comment on above: Performed By: #### H STROPN #### [facility] [address] [place], [place] [address] CHEST WO CONon [...] FLANAGAN Date: 2022-06-05 16:58 Normal [facility] CT CHEST WO CON [employer] Other PROF CHEM 8 (BAS METB)on Anion gap [Moles/Vol] 10.2 mmol/L Normal [facility] Comment on above: Performed By: #### B METER RECORD CLERK #### [facility] [address] [address] [address] Mirza Sadler Calcium [Mass/Vol] 8.9 mg/dL Normal 8.5-10.1 [facility] Comment on above: Performed By: #### B METER RECORD CLERK #### [facility] [address] [address] [address] Mizra Sadler Chloride [Moles/Vol] 101 mmol/L Normal 98-107 [facility] Comment on above: Performed By: #### B METER RECORD CLERK #### [facility] [address] [place] [address] Dr. Mirza Sadler CO2 [Moles/Vol] 31.2 mmol/L Normal 21.0-32.0 [facility] Comment on above: Performed By: #### B METER RECORD CLERK #### [facility] [address] [address] [address] Mirza Sadler Creatinine [Mass/Vol] 1.91 mg/dL Critically high 0.70-1.30 [facility] Comment on above: Performed By: #### B METER RECORD CLERK #### [facility] [address] [address] [address] Mirza Sadler EGFR-AF SAMOAN 42 mL/min/1.73m2 Critically low >=60 [facility] Comment on above: Performed By: #### B METER RECORD CLERK #### [facility] [address] [address] [address] Mirza Sadler EGFR-NON AF SAMOAN 35 mL/min/1.73m2 Critically low >=60 [facility] Comment on above: Performed By: #### B METER RECORD CLERK #### [facility] [address] [address] [address] Mirza Sadler Glucose [Mass/Vol] 242 mg/dL Critically high 74-106 [facility] Comment on above: Performed By: #### B METER RECORD CLERK #### [facility] [address] [address] [address] Mirza Sadler Potassium [Moles/Vol] 4.4 mmol/L Normal 3.5-5.1 [facility] Comment on above: Performed By: #### B METER RECORD CLERK #### [facility] [address] [place] [address] Dr. Mirza Sadler Sodium [Moles/Vol] 138 mmol/L Normal 136-145 [facility] Comment on above: Performed By: #### B METER RECORD CLERK #### [facility] [address] [place] [address] Dr. Mirza Sadler Urea nitrogen [Mass/Vol] 33.0 mg/dL Critically high 7.0-18.0 [facility] Comment on above: Performed By: #### B METER RECORD CLERK #### [facility] [address] [place] [address] Dr. Mirza Sadler Urea nitrogen/Creatinine [Mass ratio] 17.3 mg/mg Normal [facility] Comment on above: Performed By: #### B METER RECORD CLERK #### [facility] [address] [place] [address] Dr. Mirza Sadler PROF CHEM 8 (BAS METB)on Anion gap [Moles/Vol] 10.7 mmol/L Normal [facility] Comment on above: Performed By: #### P T, PTT #### [facility] [address] [place] [address] Dr. Mirza Sadler Calcium [Mass/Vol] 8.9 mg/dL Normal 8.5-10.1 [facility] Comment on above: Performed By: #### P T, PTT #### [facility] [address] [place] [address] Dr. Mirza Sadler Chloride [Moles/Vol] 104 mmol/L Normal 98-107 [facility] Comment on above: Performed By: #### P T, PTT #### [facility] [address] [place] [address] Dr. Mirza Sadler CO2 [Moles/Vol] 29.4 mmol/L Normal 21.0-32.0 [facility] Comment on above: Performed By: #### P T, PTT #### [facility] [address] [address] [address] Mirza Sadler Creatinine [Mass/Vol] 1.75 mg/dL Critically high 0.70-1.30 [facility] Comment on above: Performed By: #### P T, PTT #### [facility] [address] [address] [address] Mirza Sadler EGFR-AF SAMOAN 47 mL/min/1.73m2 Critically low >=60 [facility] Comment on above: Performed By: #### P T, PTT #### [facility] [address] [address] [address] Mirza Sadler EGFR-NON AF SAMOAN 39 mL/min/1.73m2 Critically low >=60 [facility] Comment on above: Performed By: #### P T, PTT #### [facility] [address] [place] [address] Dr. Mirza Sadler Glucose [Mass/Vol] 191 mg/dL Critically high 74-106 [facility] Comment on above: Performed By: #### P T, PTT #### [facility] [address] [address] [address] Mirza Sadler Potassium [Moles/Vol] 4.1 mmol/L Normal 3.5-5.1 [facility] Comment on above: Performed By: #### P T, PTT #### [facility] [address] [address] [address] Mirza Sadler Sodium [Moles/Vol] 140 mmol/L Normal 136-145 [facility] Comment on above: Performed By: #### P T, PTT #### [facility] [address] [address] [address] Mirza Sadler Urea nitrogen [Mass/Vol] 31.0 mg/dL Critically high 7.0-18.0 [facility] Comment on above: Performed By: #### P T, PTT #### [facility] [address] [address] [address] Mirza Sadler Urea nitrogen/Creatinine [Mass ratio] 17.7 mg/mg Normal [facility] Comment on above: Performed By: #### P T, PTT #### [facility] [address] [address] [address] Mirza Sadler XR CHEST 2 Von [...] by: HIGINIO FLANAGAN Date: 2022-03-22 16:12 Normal [facility] A1C HEMOGLOBINon 03-20-2022 HbA1c (Bld) [Mass fraction] 6.7 % [employer] Other Glucose - FINGER STICKon Glucose [Mass/Vol] 193 mg/dL [employer] Other HbA1c (Bld) [Mass fraction]o n 03-20-2022 A1C HEMOGLOBIN [facility] [employer] Other BNPon 03-13-2022 Natriuretic peptide B (Bld) [Mass/Vol] 4825.0 pg/mL Critically high <=900.0 [facility] Comment on above: Performed By: #### E RUR #### [facility] [address] [address] [address] Mirza Sadler CBC AUTO DIFFon 03-13-2022 BASO # 0.0 103/ul Normal 0.0-0.1 [facility] Comment on above: Performed By: #### E RUR #### [facility] [address] [address] [address] Mirza Sadler Basophils/100 WBC (Bld) 0.6 % Normal 0.2-2.0 [facility] Comment on above: Performed By: #### E RUR #### [facility] [address] [place] [address] Dr. Mirza Sadler EO # 0.1 103/ul Normal 0.0-0.7 [facility] Comment on above: Performed By: #### E RUR #### [facility] [address] [place] [address] Dr. Mirza Sadler Eosinophils/100 WBC (Bld) 1.8 % Normal 0.9-7.0 [facility] Comment on above: Performed By: #### E RUR #### [facility] [address] [place] [address] Dr. Mirza Sadler Erythrocyte distribution width (RBC) [Ratio] 14.4 % Normal 11.0-15.0 [facility] Comment on above: Performed By: #### E RUR #### [facility] [address] [place] [address] Dr. Mirza Sadler Hematocrit (Bld) [Volume fraction] 36.1 % Critically low 42.0-54.0 [facility] Comment on above: Performed By: #### E RUR #### [facility] [address] [place] [address] Dr. Mirza Sadler Hemoglobin (Bld) [Mass/Vol] 11.9 g/dL Critically low 14.0-18.0 [facility] Comment on above: Performed By: #### E RUR #### [facility] [address] [place] [address] Dr. Mirza Sadler IG # 0.02 10e3/ul Normal 0.00-0.03 [facility] Comment on above: Performed By: #### E RUR #### [facility] [address] [place] [address] Dr. Mirza Sadler IG % 0.3 % Normal 0.0-0.5 [facility] Comment on above: Performed By: #### E RUR #### [facility] [address] [place] [address] Dr. Mirza Sadler LYMPH # 1.5 103/ul Normal 1.2-3.8 [facility] Comment on above: Performed By: #### E RUR #### [facility] [address] [place] [address] Dr. Mirza Sadler Lymphocytes/100 WBC (Bld) 22.6 % Normal 20.5-60.0 [facility] Comment on above: Performed By: #### E RUR #### [facility] [address] [place] [address] Dr. Mirza Sadler MANUAL DIFF REQ NO Normal [facility] Comment on above: Performed By: #### E RUR #### [facility] [address] [place] [address] Dr. Mirza Sadler MCH (RBC) [Entitic mass] 29.0 pg Normal 25.9-34.0 [facility] Comment on above: Performed By: #### E RUR #### [facility] [address] [place] [address] Dr. Mirza Sadler MCHC (RBC) [Mass/Vol] 33.0 g/dL Normal 29.9-35.2 [facility] Comment on above: Performed By: #### E RUR #### [facility] [address] [place] [address] Dr. Mirza Sadler MCV (RBC) [Entitic vol] 88.0 fL Normal 80.0-94.0 [facility] Comment on above: Performed By: #### E RUR #### [facility] [address] [place] [address] Dr. Mirza Sadler MONO # 0.7 103/ul Normal 0.3-0.8 [facility] Comment on above: Performed By: #### E RUR #### [facility] [address] [place] [address] Dr. Mirza Sadler Monocytes/100 WBC (Bld) 10.2 % Normal 1.7-12.0 [facility] Comment on above: Performed By: #### E RUR #### [facility] [address] [place] [address] Dr. Mirza Sadler NEUT # 4.3 103/ul Normal 1.4-6.5 [facility] Comment on above: Performed By: #### E RUR #### [facility] [address] [address] [address] Mirza Sadler Neutrophils/100 WBC (Bld) 64.5 % Normal 43.0-75.0 [facility] Comment on above: Performed By: #### E RUR #### [facility] [address] [address] [address] Mirza Sadler Platelet mean volume (Bld) [Entitic vol] 9.7 fL Normal 9.5-13.5 [facility] Comment on above: Performed By: #### E RUR #### [facility] [address] [address] [address] Mirza Sadler PLT 149 103/ul Critically low 150-450 [facility] Comment on above: Performed By: #### E RUR #### [facility] [address] [address] [address] Mirza Sadler RBC 4.10 106/ul Critically low 4.70-6.10 [facility] Comment on above: Performed By: #### E RUR #### [facility] [address] [address] [address] Mirza Sadler WBC 6.6 103/ul Normal 4.0-11.0 [facility] Comment on above: Performed By: #### E RUR #### [facility] [address] [address] [address] Mirza Sadler PROF CHEM 8 (BAS METB)on Anion gap [Moles/Vol] 14.6 mmol/L Normal [facility] Comment on above: Performed By: #### E RUR #### [facility] [address] [address] [address] Mirza Sadler Calcium [Mass/Vol] 8.5 mg/dL Normal 8.5-10.1 [facility] Comment on above: Performed By: #### E RUR #### [facility] [address] [address] [address] Mirza Sadler Chloride [Moles/Vol] 104 mmol/L Normal 98-107 [facility] Comment on above: Performed By: #### E RUR #### [facility] [address] [address] [address] Mirza Sadler CO2 [Moles/Vol] 22.7 mmol/L Normal 21.0-32.0 [facility] Comment on above: Performed By: #### E RUR #### [facility] [address] [address] [address] Mirza Sadler Creatinine [Mass/Vol] 1.78 mg/dL Critically high 0.70-1.30 [facility] Comment on above: Performed By: #### E RUR #### [facility] [address] [address] [address] Mirza Sadler EGFR-AF SAMOAN 46 mL/min/1.73m2 Critically low >=60 [facility] Comment on above: Performed By: #### E RUR #### [facility] [address] [address] [address] Mirza Sadler EGFR-NON AF SAMOAN 38 mL/min/1.73m2 Critically low >=60 [facility] Comment on above: Performed By: #### E RUR #### [facility] [address] [place] [address] Dr. Mirza Sadler Glucose [Mass/Vol] 121 mg/dL Critically high 74-106 [facility] Comment on above: Performed By: #### E RUR #### [facility] [address] [address] [address] Mirza Sadler Potassium [Moles/Vol] 3.3 mmol/L Critically low 3.5-5.1 [facility] Comment on above: Performed By: #### E RUR #### [facility] [address] [address] [address] Mirza Sadler Sodium [Moles/Vol] 138 mmol/L Normal 136-145 [facility] Comment on above: Performed By: #### E RUR #### [facility] [address] [address] [address] Mirza Sadler Urea nitrogen [Mass/Vol] 30.0 mg/dL Critically high 7.0-18.0 [facility] Comment on above: Performed By: #### E RUR #### [facility] [address] [place] [address] Dr. Mirza Sadler Urea nitrogen/Creatinine [Mass ratio] 16.9 mg/mg Normal [facility] Comment on above: Performed By: #### E RUR #### [facility] [address] [place] [address] Dr. Mirza Sadler BNPon 03-12-2022 Natriuretic peptide B (Bld) [Mass/Vol] 7452.0 pg/mL Critically high <=900.0 [facility] Comment on above: Performed By: #### C MP, CMADM #### [facility] [address] [place] [address] Dr. Mirza Sadler CBC AUTO DIFFon 03-12-2022 BASO # 0.0 103/ul Normal 0.0-0.1 [facility] Comment on above: Performed By: #### P T, PTT #### [facility] [address] [place] [address] Dr. Mirza Sadler Basophils/100 WBC (Bld) 0.4 % Normal 0.2-2.0 [facility] Comment on above: Performed By: #### P T, PTT #### [facility] [address] [place] [address] Dr. Mirza Sadler EO # 0.0 103/ul Normal 0.0-0.7 [facility] Comment on above: Performed By: #### P T, PTT #### [facility] [address] [place] [address] Dr. Mirza Sadler Eosinophils/100 WBC (Bld) 0.2 % Critically low 0.9-7.0 [facility] Comment on above: Performed By: #### P T, PTT #### [facility] [address] [place] [address] Dr. Mirza Sadler Erythrocyte distribution width (RBC) [Ratio] 14.6 % Normal 11.0-15.0 [facility] Comment on above: Performed By: #### P T, PTT #### [facility] [address] [place] [address] Dr. Mirza Sadler Hematocrit (Bld) [Volume fraction] 37.8 % Critically low 42.0-54.0 [facility] Comment on above: Performed By: #### P T, PTT #### [facility] [address] [place] [address] Dr. Mirza Sadler Hemoglobin (Bld) [Mass/Vol] 12.2 g/dL Critically low 14.0-18.0 [facility] Comment on above: Performed By: #### P T, PTT #### [facility] [address] [place] [address] Dr. Mirza Sadler IG # 0.03 10e3/ul Normal 0.00-0.03 [facility] Comment on above: Performed By: #### P T, PTT #### [facility] [address] [place] [address] Dr. Mirza Sadler IG % 0.3 % Normal 0.0-0.5 [facility] Comment on above: Performed By: #### P T, PTT #### [facility] [address] [place] [address] Dr. Mirza Sadler LYMPH # 1.2 103/ul Normal 1.2-3.8 [facility] Comment on above: Performed By: #### P T, PTT #### [facility] [address] [place] [address] Dr. Mirza Sadler Lymphocytes/100 WBC (Bld) 11.5 % Critically low 20.5-60.0 [facility] Comment on above: Performed By: #### P T, PTT #### [facility] [address] [place] [address] Dr. Mirza Sadler MANUAL DIFF REQ NO Normal [facility] Comment on above: Performed By: #### P T, PTT #### [facility] [address] [place] [address] Dr. Mirza Sadler MCH (RBC) [Entitic mass] 29.0 pg Normal 25.9-34.0 [facility] Comment on above: Performed By: #### P T, PTT #### [facility] [address] [address] [address] Mirza Sadler MCHC (RBC) [Mass/Vol] 32.3 g/dL Normal 29.9-35.2 [facility] Comment on above: Performed By: #### P T, PTT #### [facility] [address] [place] [address] Dr. Mirza Sadler MCV (RBC) [Entitic vol] 89.8 fL Normal 80.0-94.0 [facility] Comment on above: Performed By: #### P T, PTT #### [facility] [address] [place] [address] Dr. Mirza Sadler MONO # 0.7 103/ul Normal 0.3-0.8 [facility] Comment on above: Performed By: #### P T, PTT #### [facility] [address] [place] [address] Dr. Mirza Sadler Monocytes/100 WBC (Bld) 6.8 % Normal 1.7-12.0 [facility] Comment on above: Performed By: #### P T, PTT #### [facility] [address] [place] [address] Dr. Mirza Sadler NEUT # 8.5 103/ul Critically high 1.4-6.5 [facility] Comment on above: Performed By: #### P T, PTT #### [facility] [address] [place] [address] Dr. Mirza Sadler Neutrophils/100 WBC (Bld) 80.8 % Critically high 43.0-75.0 [facility] Comment on above: Performed By: #### P T, PTT #### [facility] [address] [place] [address] Dr. Mirza Sadler Platelet mean volume (Bld) [Entitic vol] 9.8 fL Normal 9.5-13.5 [facility] Comment on above: Performed By: #### P T, PTT #### [facility] [address] [place] [address] Dr. Mirza Sadler PLT 165 103/ul Normal 150-450 [facility] Comment on above: Performed By: #### P T, PTT #### [facility] [address], [place] [address] Dr. Mirza Sadler RBC 4.21 106/ul Critically low 4.70-6.10 [facility] Comment on above: Performed By: #### P T, PTT #### [facility] [address], [place] [address] Dr. Mirza Sadler WBC 10.5 103/ul Normal 4.0-11.0 [facility] Comment on above: Performed By: #### P T, PTT #### [facility] [address], [place] [address] Dr. Mirza Sadler ECHOCARDIO M/2D COMPLETEon 1 05-13-2021 ECHOCARDIO M/2D COMPLETE Patient: LANI LIZAMA Exam Date: 03/12/2022 : 1950 Gender:M Ordering : DR OBDULIO ALVA . Admission #: [id number] Family : DR HARLEY CRESPO D.O. Order #: [id number] CLICK HERE TO VIEW EXAM ECHOCARDIOGRAM REPORT [...] Foreman M.D. on 03/13/2022 at 17:42 Normal [facility] PROF CHEM 8 (BAS METB)on Anion gap [Moles/Vol] 17.8 mmol/L Normal [facility] Comment on above: Performed By: #### C TEGAN MARIN #### [facility] [address] [place] [address] Dr. Mirza Sadler Calcium [Mass/Vol] 8.6 mg/dL Normal 8.5-10.1 [facility] Comment on above: Performed By: #### C MP, CMADM #### [facility] [address] [address] [address] Mirza Sadler Chloride [Moles/Vol] 103 mmol/L Normal 98-107 [facility] Comment on above: Performed By: #### C MP, CMADM #### [facility] [address] [address] [address] Mirza Sadler CO2 [Moles/Vol] 22.3 mmol/L Normal 21.0-32.0 [facility] Comment on above: Performed By: #### C MP, CMADM #### [facility] [address] [address] [address] Mirza Sadler Creatinine [Mass/Vol] 1.81 mg/dL Critically high 0.70-1.30 [facility] Comment on above: Performed By: #### C MP, CMADM #### [facility] [address] [address] [address] Mirza Sadler EGFR-AF SAMOAN 45 mL/min/1.73m2 Critically low >=60 [facility] Comment on above: Performed By: #### C MP, CMADM #### [facility] [address] [address] [address] Mirza Sadler EGFR-NON AF SAMOAN 37 mL/min/1.73m2 Critically low >=60 [facility] Comment on above: Performed By: #### C MP, CMADM #### [facility] [address] [address] [address] Mirza Sadler Glucose [Mass/Vol] 161 mg/dL Critically high 74-106 [facility] Comment on above: Performed By: #### C MP, CMADM #### [facility] [address] [address] [address] Mirza Sadler Potassium [Moles/Vol] 4.1 mmol/L Normal 3.5-5.1 [facility] Comment on above: Performed By: #### C MP, CMADM #### [facility] [address] [address] [address] Mirza Sadler Sodium [Moles/Vol] 139 mmol/L Normal 136-145 [facility] Comment on above: Performed By: #### C TEGAN MARIN #### [facility] [address] [place] [address] Dr. Mirza Sadler Urea nitrogen [Mass/Vol] 28.0 mg/dL Critically high 7.0-18.0 [facility] Comment on above: Performed By: #### C TEGAN MARIN #### [facility] [address] [place] [address] Dr. Mirza Sadler Urea nitrogen/Creatinine [Mass ratio] 15.5 mg/mg Normal [facility] Comment on above: Performed By: #### C TEGAN MARIN #### [facility] [address] [place] [address] Dr. Mirza Sadler TROPONIN, HIGH SENSITIVITYon 03-12-2022 HSTROP 40132.5 pg/mL Critically high 4.0-76.1 [facility] Comment on above: Result Comment: CUT- OFF POINTS HAVE BEEN ESTABLISHED BASED ON THE FOURTH UNIVERSAL DEFINITIONS OF MYOCARDIAL INFARCTION. THE UPPER REFERENCE LIMIT (URL) OF TROPONIN, DEFINED THE 99TH PERCENTILE OF cTnI DISTRIBUTION IN A REFERENCE POPULATION, HAS BEEN CONFIRMED THE DECISION THRESHOLD FOR [place] DIAGNOSIS. Performed By: #### C TEGAN MARIN #### [facility] [address] [place] [address] Dr. Mirza Sadler BNPon 03-11-2022 Natriuretic peptide B (Bld) [Mass/Vol] 1378.0 pg/mL Critically high <=900.0 [facility] Comment on above: Performed By: #### P T, PTT #### [facility] [address] [place] [address] Dr. Mirza Sadler CARDIAC PARUL 3-6on 2 CK [Catalytic activity/Vol] 139 U/L Normal 39-308 [facility] Comment on above: Performed By: #### E RUR #### [facility] [address] [place] [address] Dr. Mirza Sadlre CK.MB [Mass/Vol] 7.50 ng/mL Critically high <=3.60 [facility] Comment on above: Performed By: #### E RUR #### [facility] [address] [place] [address] Dr. Mirza Sadler HSTROP 1419.3 pg/mL Critically high 4.0-76.1 [facility] Comment on above: Result Comment: CUT- OFF POINTS HAVE BEEN ESTABLISHED BASED ON THE FOURTH UNIVERSAL DEFINITIONS OF MYOCARDIAL INFARCTION. THE UPPER REFERENCE LIMIT (URL) OF TROPONIN, DEFINED THE 99TH PERCENTILE OF cTnI DISTRIBUTION IN A REFERENCE POPULATION, HAS BEEN CONFIRMED THE DECISION THRESHOLD FOR [place] DIAGNOSIS. Performed By: #### E RUR #### [facility] [address] [place] [address] Dr. Mirza Sadler CBC AUTO DIFFon 03-11-2022 BASO # 0.1 103/ul Normal 0.0-0.1 [facility] Comment on above: Performed By: #### E RUR #### [facility] [address] [place] [address] Dr. Mirza Sadler Basophils/100 WBC (Bld) 0.5 % Normal 0.2-2.0 [facility] Comment on above: Performed By: #### E RUR #### [facility] [address] [place] [address] Dr. Mirza Sadler EO # 0.2 103/ul Normal 0.0-0.7 [facility] Comment on above: Performed By: #### E RUR #### [facility] [address] [place] [address] Dr. Mirza Sadler Eosinophils/100 WBC (Bld) 1.3 % Normal 0.9-7.0 [facility] Comment on above: Performed By: #### E RUR #### [facility] [address] [place] [address] Dr. Mirza Sadler Erythrocyte distribution width (RBC) [Ratio] 14.6 % Normal 11.0-15.0 [facility] Comment on above: Performed By: #### E RUR #### [facility] [address] [place] [address] Dr. Mirza Sadler Hematocrit (Bld) [Volume fraction] 43.1 % Normal 42.0-54.0 [facility] Comment on above: Performed By: #### E RUR #### [facility] [address] [address] [address] Mirza Sadler Hemoglobin (Bld) [Mass/Vol] 14.2 g/dL Normal 14.0-18.0 [facility] Comment on above: Performed By: #### E RUR #### [facility] [address] [address] [address] Mirza Sadler IG # 0.07 10e3/ul Critically high 0.00-0.03 [facility] Comment on above: Performed By: #### E RUR #### [facility] [address] [address] [address] Mirza Sadler IG % 0.5 % Normal 0.0-0.5 [facility] Comment on above: Performed By: #### E RUR #### [facility] [address] [address] [address] Mirza Sadler LYMPH # 1.3 103/ul Normal 1.2-3.8 [facility] Comment on above: Performed By: #### E RUR #### [facility] [address] [address] [address] Mirza Sadler Lymphocytes/100 WBC (Bld) 8.6 % Critically low 20.5-60.0 [facility] Comment on above: Performed By: #### E RUR #### [facility] [address] [address] [address] Mirza Sadler MANUAL DIFF REQ NO Normal [facility] Comment on above: Performed By: #### E RUR #### [facility] [address] [address] [address] Mirza Sadler MCH (RBC) [Entitic mass] 29.3 pg Normal 25.9-34.0 [facility] Comment on above: Performed By: #### E RUR #### [facility] [address] [address] [address] Mirza Sadler MCHC (RBC) [Mass/Vol] 32.9 g/dL Normal 29.9-35.2 [facility] Comment on above: Performed By: #### E RUR #### [facility] [address] [address] [address] Mirza Sadler MCV (RBC) [Entitic vol] 88.9 fL Normal 80.0-94.0 [facility] Comment on above: Performed By: #### E RUR #### [facility] [address] [place] [address] Dr. Mirza Sadler MONO # 0.7 103/ul Normal 0.3-0.8 [facility] Comment on above: Performed By: #### E RUR #### [facility] [address] [place] [address] Dr. Mirza Sadler Monocytes/100 WBC (Bld) 4.3 % Normal 1.7-12.0 [facility] Comment on above: Performed By: #### E RUR #### [facility] [address] [place] [address] Dr. Mirza Sadler NEUT # 12.8 103/ul Critically high 1.4-6.5 [facility] Comment on above: Performed By: #### E RUR #### [facility] [address] [place] [address] Dr. Mirza Sadler Neutrophils/100 WBC (Bld) 84.8 % Critically high 43.0-75.0 [facility] Comment on above: Performed By: #### E RUR #### [facility] [address] [place] [address] Dr. Mirza Sadler Platelet mean volume (Bld) [Entitic vol] 9.9 fL Normal 9.5-13.5 [facility] Comment on above: Performed By: #### E RUR #### [facility] [address] [place] [address] Dr. Mirza Sadler PLT 201 103/ul Normal 150-450 [facility] Comment on above: Performed By: #### E RUR #### [facility] [address] [place] [address] Dr. Mirza Sadler RBC 4.85 106/ul Normal 4.70-6.10 [facility] Comment on above: Performed By: #### E RUR #### [facility] [address] [place] [address] Dr. Mirza Sadler WBC 15.0 103/ul Critically high 4.0-11.0 [facility] Comment on above: Performed By: #### E RUR #### [facility] [address] [place] [address] Dr. Mirza Sadler CULTURE BLOODon 03-11-2022 Microscopic examination of blood, culture Culture Observations: NO GROWTH AT 5 DAYS. Normal [facility] Comment on above: Performed By: #### H STROPN #### [facility] [address] [place] [address] Dr. Mirza Sadler Microscopic examination of blood, culture Culture Observations: NO GROWTH AT 5 DAYS. Normal [facility] Comment on above: Performed By: #### H STROPN #### [facility] [address] [place] [address] Dr. Mirza Sadler Covid-19 PCR ([facility])on 03-01 SARS-CoV-2 (COVID-19) RNA RAMO+probe Ql (Unsp spec) Not detected Normal NOT DETECTED [facility] Comment on above: Result Comment: When [...] for this test is supported by the [place] of [employer] and Human Service's declaration that [...] Performed By: #### H STROPN #### [facility] [address] [place] [address] Dr. Mirza Sadler ER URINE PROFILEon 2 Bilirubin Ql (U) Negative Normal NEGATIVE [facility] Comment on above: Performed By: #### E RUR #### [facility] [address] [place] [address] Dr. Mirza Sadler Clarity (U) CLEAR Normal CLEAR [facility] Comment on above: Performed By: #### E RUR #### [facility] [address] [place] [address] Dr. Mirza Sadler Color (U) LT. YELLOW Normal YELLOW [facility] Comment on above: Performed By: #### E RUR #### [facility] [address] [place] [address] Dr. Mirza BUSTILLO A micrscopic examina tion will be performed if indicated. Normal [facility] Comment on above: Performed By: #### E RUR #### [facility] [address] [place] [address] Dr. Mirza Sadler Glucose Ql (U) >1000 Abnormal NEGATIVE [facility] Comment on above: Performed By: #### E RUR #### [facility] [address] [place] [address] Dr. Mirza Sadler Hemoglobin Ql (U) Negative Normal NEGATIVE [facility] Comment on above: Performed By: #### E RUR #### [facility] [address] [place] [address] Dr. Mirza Sadler Ketones Ql (U) 15 mg/dl Abnormal NEGATIVE [facility] Comment on above: Performed By: #### E RUR #### [facility] [address] [place] [address] Dr. Mirza Sadler LEUKOCYTES Negative Normal NEGATIVE [facility] Comment on above: Performed By: #### E RUR #### [facility] [address] [place] [address] Dr. Mirza Sadler Nitrite Ql (U) Negative Normal NEGATIVE [facility] Comment on above: Performed By: #### E RUR #### [facility] [address] [place] [address] Dr. Mirza Sadler pH (U) 5.0 [pH] Normal 5-9 [facility] Comment on above: Performed By: #### E RUR #### [facility] [address] [place] [address] Dr. Mirza Sadler SPEC GRAVITY 1.020 Normal 1.005-<=1. 025 [facility] Comment on above: Performed By: #### E RUR #### [facility] [address] [place] [address] Dr. Mirza Sadler UA PROTEIN TRACE Normal NEGATIVE/ TRACE [facility] Comment on above: Performed By: #### E RUR #### [facility] [address] [place] [address] Dr. Mirza Sadler UR MICRO IND NOT INDICATED Normal [facility] Comment on above: Performed By: #### E RUR #### [facility] [address] [place] [address] Dr. Mirza Sadler Urobilinogen Qn (U) 0.2 {Luisito'U}/dL Normal 0.2 - 1. 0 [facility] Comment on above: Performed By: #### E RUR #### [facility] [address] [place] [address] Dr. Mirza Sadler POINT OF CARE GLUCOSEon 03-01 Glucose [Mass/Vol] 161 mg/dL Critically high 74-106 [facility] Comment on above: Performed By: #### P T, PTT #### [facility] [address] [place] [address] Dr. Mirza Sadler PROF 14(COMP METB)on 022 Albumin [Mass/Vol] 4.3 g/dL Normal 3.4-5.0 [facility] Comment on above: Performed By: #### P T, PTT #### [facility] [address] [place] [address] Dr. Mirza Sadler Albumin/Globulin [Mass ratio] 1.1 {ratio} Normal [facility] Comment on above: Performed By: #### P T, PTT #### [facility] [address] [place] [address] Dr. Mirza Sadler ALP [Catalytic activity/Vol] 156 U/L Critically high 46-116 [facility] Comment on above: Performed By: #### P T, PTT #### [facility] [address] [place] [address] Dr. Mirza Sadler ALT [Catalytic activity/Vol] 24 U/L Normal 16-63 [facility] Comment on above: Performed By: #### P T, PTT #### [facility] [address] [address] [address] Mirza Sadler Anion gap [Moles/Vol] 16.7 mmol/L Normal [facility] Comment on above: Performed By: #### P T, PTT #### [facility] [address] [address] [address] Mirza Sadler AST [Catalytic activity/Vol] 21 U/L Normal 15-37 [facility] Comment on above: Performed By: #### P T, PTT #### [facility] [address] [place] [address] Dr. Mirza Sadler Bilirubin [Mass/Vol] 1.1 mg/dL Critically high 0.2-1.0 [facility] Comment on above: Performed By: #### P T, PTT #### [facility] [address] [place] [address] Dr. Mirza Sadler Calcium [Mass/Vol] 8.8 mg/dL Normal 8.5-10.1 [facility] Comment on above: Performed By: #### P T, PTT #### [facility] [facility] [address] [place] [address] Dr. Mirza Sadler Chloride [Moles/Vol] 105 mmol/L Normal 98-107 [facility] Comment on above: Performed By: #### P T, PTT #### [facility] [address] [place] [address] Dr. Mirza Sadler CO2 [Moles/Vol] 25.0 mmol/L Normal 21.0-32.0 [facility] Comment on above: Performed By: #### P T, PTT #### [facility] [address] [place] [address] Dr. Mirza Sadler Creatinine [Mass/Vol] 1.57 mg/dL Critically high 0.70-1.30 [facility] Comment on above: Performed By: #### P T, PTT #### [facility] [address] [address] [address] Mirza Sadler EGFR-AF SAMOAN 53 mL/min/1.73m2 Critically low >=60 [facility] Comment on above: Performed By: #### P T, PTT #### [facility] [address] [address] [address] Mirza Sadler EGFR-NON AF SAMOAN 44 mL/min/1.73m2 Critically low >=60 [facility] Comment on above: Performed By: #### P T, PTT #### [facility] [address] [place] [address] Dr. Mirza Sadler Globulin (S) [Mass/Vol] 3.9 g/dL Normal [facility] Comment on above: Performed By: #### P T, PTT #### [facility] [address] [place] [address] Dr. Mirza Sadler Glucose [Mass/Vol] 188 mg/dL Critically high 74-106 [facility] Comment on above: Performed By: #### P T, PTT #### [facility] [address] [place] [address] Dr. Mirza Sadler Potassium [Moles/Vol] 3.7 mmol/L Normal 3.5-5.1 [facility] Comment on above: Performed By: #### P T, PTT #### [facility] [address] [place] [address] Dr. Mirza Sadler Protein [Mass/Vol] 8.2 g/dL Normal 6.4-8.2 [facility] Comment on above: Performed By: #### P T, PTT #### [facility] [address] [place] [address] Dr. Mirza Sadler Sodium [Moles/Vol] 143 mmol/L Normal 136-145 [facility] Comment on above: Performed By: #### P T, PTT #### [facility] [address] [place] [address] Dr. Mirza Sadler Urea nitrogen [Mass/Vol] 20.0 mg/dL Critically high 7.0-18.0 [facility] Comment on above: Performed By: #### P T, PTT #### [facility] [address] [place] [address] Dr. Mirza Sadler Urea nitrogen/Creatinine [Mass ratio] 12.7 mg/mg Normal [facility] Comment on above: Performed By: #### P T, PTT #### [facility] [address] [place] [address] Dr. Mirza Sadler RESPIRATORY PANEL PLUSon Adenovirus Not detected Normal NOT DETECTED [facility] Comment on above: Performed By: #### P T, PTT #### [facility] [address] [place] [address] Dr. Mirza Ball Parapertusis Not detected Normal NOT DETECTED [facility] Comment on above: Performed By: #### P T, PTT #### [facility] [address] [place] [address] Dr. Mirza Hernandez. Pertussis Not detected Normal NOT DETECTED [facility] Comment on above: Performed By: #### P T, PTT #### [facility] [address] [place] [address] Dr. Mirza Sadler Chlamydia Pneumoniae Not detected Normal NOT DETECTED [facility] Comment on above: Performed By: #### P T, PTT #### [facility] [address] [place] [address] Dr. Mirza Sadler Coronavirus 229E Not detected Normal NOT DETECTED [facility] Comment on above: Performed By: #### P T, PTT #### [facility] [address] [place] [address] Dr. Mirza Sadler Coronavirus HKU1 Not detected Normal NOT DETECTED [facility] Comment on above: Performed By: #### P T, PTT #### [facility] [address] [place] [address] Dr. Mirza Sadler Coronavirus NL63 Not detected Normal NOT DETECTED [facility] Comment on above: Performed By: #### P T, PTT #### [facility] [address] [place] [address] Dr. Mirza Sadler Coronavirus OC43 Not detected Normal NOT DETECTED [facility] Comment on above: Performed By: #### P T, PTT #### [facility] [address] [place] [address] Dr. Mirza Sadler Influenza A H1 2009 Not detected Normal NOT DETECTED [facility] Comment on above: Performed By: #### P T, PTT #### [facility] [address] [place] [address] Dr. Mirza Sadler Influenza A H3 Not detected Normal NOT DETECTED [facility] Comment on above: Performed By: #### P T, PTT #### [facility] [address] [place] [address] Dr. Mirza Sadler Influenza B Not detected Normal NOT DETECTED [facility] Comment on above: Performed By: #### P T, PTT #### [facility] [address] [place] [address] Dr. Mirza Sadler Metapneumovirus Not detected Normal NOT DETECTED [facility] Comment on above: Performed By: #### P T, PTT #### [facility] [address] [place] [address] Dr. Mirza Sadler Mycoplas. Pneumoniae Not detected Normal NOT DETECTED [facility] Comment on above: Performed By: #### P T, PTT #### [facility] [address] [place] [address] Dr. Mirza Sadler Parainfluenza 1 Not detected Normal NOT DETECTED [facility] Comment on above: Performed By: #### P T, PTT #### [facility] [address] [place] [address] Dr. Mirza Sadler Parainfluenza 2 Not detected Normal NOT DETECTED [facility] Comment on above: Performed By: #### P T, PTT #### [facility] [address] [place] [address] Dr. Mirza Sadler Parainfluenza 3 Not detected Normal NOT DETECTED [facility] Comment on above: Performed By: #### P T, PTT #### [facility] [address] [place] [address] Dr. Yilan Sadler Parainfluenza 4 Not detected Normal NOT DETECTED [facility] Comment on above: Performed By: #### P T, PTT #### [facility] [address] [place] [address] Dr. Mirza Sadler Rhino/Enterovirus Not detected Normal NOT DETECTED [facility] Comment on above: Performed By: #### P T, PTT #### [facility] [address] [place] [address] Dr. Mirza Sadler RP2 Header 1 RESPIRATORY PANEL: VIRUSES Normal [facility] Comment on above: Performed By: #### P T, PTT #### [facility] [address] [place] [address] Dr. Mirza Sadler RP2 Header 2 RESPIRATORY PANEL: BACTERIA Normal [facility] Comment on above: Performed By: #### P T, PTT #### [facility] [address] [place] [address] Dr. Mirza Sadler RSV Not detected Normal NOT DETECTED [facility] Comment on above: Performed By: #### P T, PTT #### [facility] [address] [place] [address] Dr. Mirza Sadler SARS-CoV-2 (COVID-19) RNA RAMO+probe Ql (Unsp spec) Not detected Normal NOT DETECTED [facility] Comment on above: Performed By: #### P T, PTT #### [facility] [address] [place] [address] Dr. Mirza Sadler TROPONIN, HIGH SENSITIVITYon 03-11-2022 HSTROP 93280.8 pg/mL Critically high 4.0-76.1 [facility] Comment on above: Result Comment: CUT- OFF POINTS HAVE BEEN ESTABLISHED BASED ON THE FOURTH UNIVERSAL DEFINITIONS OF MYOCARDIAL INFARCTION. THE UPPER REFERENCE LIMIT (URL) OF TROPONIN, DEFINED THE 99TH PERCENTILE OF cTnI DISTRIBUTION IN A REFERENCE POPULATION, HAS BEEN CONFIRMED THE DECISION THRESHOLD FOR [place] DIAGNOSIS. Performed By: #### C MP, CMADM #### [facility] [address] [place] [address] Dr. Mirza Sadler HSTROP 41.0 pg/mL Normal 4.0-76.1 [facility] Comment on above: Result Comment: CUT- OFF POINTS HAVE BEEN ESTABLISHED BASED ON THE FOURTH UNIVERSAL DEFINITIONS OF MYOCARDIAL INFARCTION. THE UPPER REFERENCE LIMIT (URL) OF TROPONIN, DEFINED THE 99TH PERCENTILE OF cTnI DISTRIBUTION IN A REFERENCE POPULATION, HAS BEEN CONFIRMED THE DECISION THRESHOLD FOR [place] DIAGNOSIS. Performed By: #### P T, PTT #### [facility] [address] [address] [address] Mirza Sadler XR CHEST 1 Von [...] by: Kayden ACEVES Date: 2022-03-11 05:42 Normal [facility] NM MUGAon 03-09-2022 NM MUGA EXAMINATION: [...] LANDIS Date: 2022-03-09 12:26 Normal [facility] CT CHEST WO CONon 03-02-2022 CT [...] FLANAGAN Date: 2022-03-02 08:52 Normal [facility] Creatinine and Glomerular fi ltration rate.predicted panel (S/P/Bld)Ordered By: Gagan Shahid on 01-17-2022 Creatinine [Mass/Vol] 1.53 mg/dL 0.64-1.27 [facility] Estimated glomerular filtrat ion rate (GFR) non- AmericanOrdered By: Gagan Shahid on 01-17-2022 GFR/1.73 sq M.predicted among non-blacks MDRD (S/P/Bld) [Vol rate/Area] 45 mL/Min [facility] Glucose Glucometer (BldC) [M ass/Vol]Ordered By: Gagan Shahid on 01-17-2022 Glucose [Mass/Vol] 178 mg/dL [facility] Comment on above: Random Glucose Refer ence Range is dependent on time and content of last meal. Glucose of more than 200 mg/dL in a nonstressed, ambulatory subject supports the diagnosis of Diabetes Mellitus. No Panel InformationOrdered By: Gagan Shahid on 01-17-2022 Estimated GFR () 55 mL/Min [facility] Comment on above: GFR estimated refere nce range: According to KDOQI guidelines, <60 ml/min/1.73m2 is sufficient to diagnose a patient with chronic kidney disease. Pharmacy Creatinine Clearance (Chem 42.00 [facility] Serum or plasma anion gap de terminationOrdered By: Gagan Shahid on 01-17-2022 Anion gap [Moles/Vol] 12.0 mmol/L 6.0-15.0 [facility] Serum or plasma calcium radha urement (mass/volume)Ordered By: Gagan Shahid on 01-17-2022 Calcium [Mass/Vol] 9.0 mg/dL 8.2-10.2 [facility] Serum or plasma chloride shanae surement (moles/volume)Ordered By: Gagan Shahid on 01-17-2022 Chloride [Moles/Vol] 107 mmol/L 95-114 [facility] Serum or plasma glucose radha urement (mass/volume)Ordered By: Gagan Shahid on 01-17-2022 Glucose [Mass/Vol] 142 mg/dL 70-100 [facility] Comment on above: ADA recommended refe rence rangeRandom Glucose Reference Range is dependent on time and content of last meal. Glucose of more than 200 mg/dL in a nonstressed, ambulatory subject supports the diagnosis of Diabetes Mellitus. Serum or plasma potassium me asurement (moles/volume)Ordered By: Gagan Shahid on 01-17-2022 Potassium [Moles/Vol] 3.5 mmol/L 3.5-5.1 [facility] Serum or plasma sodium measu rement (moles/volume)Ordered By: Gagan Shahid on 01-17-2022 Sodium [Moles/Vol] 137 mmol/L 136-146 [facility] Serum or plasma total carbon dioxide measurement (moles/volume)Ordered By: Gagan Shahid on 01-17-2022 CO2 [Moles/Vol] 21.5 mmol/L 22.0-30.0 [facility] Serum or plasma urea nitroge n measurement (mass/volume)Ordered By: Gagan Shahid on 01-17-2022 Urea nitrogen [Mass/Vol] 24 mg/dL 9- [facility] Activated partial thrombopla stin time (aPTT) in platelet poor plasma by coagulation aOrdered By: Gagan Shahid on 01-16-2022 aPTT Coag (PPP) [Time] 42.1 s 25.1-36.5 [facility] Basophils Auto (Bld) [#/Vol] Ordered By: Gagan Shahid on 01-16-2022 Basophils (Bld) [#/Vol] 0.0 10*3/uL 0.0-0.2 [facility] Basophils/100 WBC Auto (Bld) Ordered By: Gagan Shahid on 01-16-2022 Basophils/100 WBC (Bld) 0.5 % . [facility] Creatine kinase [Enzymatic a ctivity/volume] in Serum or PlasmaOrdered By: Gagan Shahid on 01-16-2022 CK [Catalytic activity/Vol] 92 U/L [facility] Eosinophils Auto (Bld) [#/Vo l]Ordered By: Gagan Shahid on 01-16-2022 Eosinophils (Bld) [#/Vol] 0.2 10*3/uL 0.0-0.45 [facility] Eosinophils/100 WBC Auto (Bl d)Ordered By: Gagan Shahid on 01-16-2022 Eosinophils/100 WBC (Bld) 2.4 % . [facility] Erythrocyte distribution wid th Auto (RBC) [Ratio]Ordered By: Gagan Shahid on 01-16-2022 Erythrocyte distribution width (RBC) [Ratio] 14.6 % 12.0-14.8 [facility] Hematocrit Auto (Bld) [Volum e fraction]Ordered By: Gagan Shahid on 01-16-2022 Hematocrit (Bld) [Volume fraction] 43.4 % 38.8-50.0 [facility] Hemoglobin [Mass/volume] in BloodOrdered By: Gagan Shahid on 01-16-2022 Hemoglobin (Bld) [Mass/Vol] 14.4 g/dL 13.0-17.0 [facility] Laboratory - Chemistry and C hemistry - challengeOrdered By: Gagan Shahid on 01-16-2022 Magnesium [Mass/Vol] 1.9 mg/dL 1.6-2.6 [facility] - CoagulationOrde red By: Gagan Shahid on 01-16-2022 PT Coag (PPP) [Time] 15.7 s 9.0-12.9 [facility] - Hematology and Cell countsOrdered By: Gagan Shahid on 01-16-2022 Nucleated RBC/100 WBC (Bld) [Ratio] 0.1 % 0-0.5 [facility] Leukocytes [#/volume] in Blo od by Automated countOrdered By: Gagan Shahid on 01-16-2022 WBC (Bld) [#/Vol] 8.2 10*3/uL 4.5-11.0 [facility] Lymphocytes Auto (Bld) [#/Vo l]Ordered By: Gagan Shahid on 01-16-2022 Lymphocytes (Bld) [#/Vol] 1.6 10*3/uL 1.00-4.8 [facility] Lymphocytes/100 WBC Auto (Bl d)Ordered By: Gagan Shahid on 01-16-2022 Lymphocytes/100 WBC (Bld) 19.5 % . [facility] MCH Auto (RBC) [Entitic mass ]Ordered By: Gagan Shahid on 01-16-2022 MCH (RBC) [Entitic mass] 29.4 pg 27.5-35.2 [facility] MCHC Auto (RBC) [Mass/Vol]Or dered By: Gagan Shahid on 01-16-2022 MCHC (RBC) [Mass/Vol] 33.2 g/dL 32.5-35.6 [facility] MCV Auto (RBC) [Entitic vol] Ordered By: Gagan Shahid on 01-16-2022 MCV (RBC) [Entitic vol] 88.5 fL 83.5-101 [facility] Monocytes Auto (Bld) [#/Vol] Ordered By: Gagan Shahid on 01-16-2022 Monocytes (Bld) [#/Vol] 0.8 10*3/uL 0.0-0.8 [facility] Monocytes/100 WBC Auto (Bld) Ordered By: Gagan Shahid on 01-16-2022 Monocytes/100 WBC (Bld) 9.1 % . [facility] Neutrophils Auto (Bld) [#/Vo l]Ordered By: Gagan Shahid on 01-16-2022 Neutrophils (Bld) [#/Vol] 5.6 10*3/uL 1.8-7.7 [facility] Neutrophils/100 WBC Auto (Bl d)Ordered By: Gagan Shahid on 01-16-2022 Neutrophils/100 WBC (Bld) 68.5 % . [facility] No Panel InformationOrdered By: Gagan Shahid on 01-16-2022 Bedside Glucose Comment Glu2: cleaned meter [facility] Platelet mean volume Auto (B ld) [Entitic vol]Ordered By: Gagan Shahid on 01-16-2022 Platelet mean volume (Bld) [Entitic vol] 8.4 fL 6.6-10.1 [facility] Platelet poor plasma interna tional normalized ratio (INR) by coagulation assay (relatOrdered By: Gagan Shahid on 01-16-2022 INR Coag (PPP) [Relative time] 1.4 {INR} [facility] Comment on above: INR Therapeutic [...] (Bld) [#/Vol] 178 10*3/uL 150-450 [facility] RBC Auto (Bld) [#/Vol]Ordere d By: Gagan Shahid on 01-16-2022 RBC (Bld) [#/Vol] 4.90 10*6/uL 3.90-5.60 [facility] Serum or plasma creatine kin ase MB (CKMB)/total creatine kinase (CK) ratio by calculaOrdered By: Gagan Shahid on 01-16-2022 CK.MB Calc [Catalytic fraction] 3.2 % 0.00-2.50 [facility] Serum or plasma creatine kin ase MB measurement (mass/volume)Ordered By: Gagan Shahid on 01-16-2022 CK.MB [Mass/Vol] 3.0 ng/mL 0.6-6.3 [facility] Troponin I.cardiac [Mass/vol ume] in Serum or Plasma by High sensitivity methodOrdered By: Gagan Shahid on 01-16-2022 Troponin I.cardiac High sensitivity method [Mass/Vol] 525 pg/mL 0-20 [facility] Comment on above: Critical valueresult calledat 1844 on 01/16/22 BNPon 01-15-2022 Natriuretic peptide B (Bld) [Mass/Vol] 1012.0 pg/mL Critically high <=900.0 [facility] Comment on above: Performed By: #### B METER RECORD CLERK #### [facility] [address] [place] [address] Dr. Mirza Sadler CARDIAC PARUL ADMITon 022 CK [Catalytic activity/Vol] 93 U/L Normal 39-308 [facility] Comment on above: Performed By: #### C TEGAN MARIN #### [facility] [address] [place] [address] Dr. Mirza Sadler CK.MB [Mass/Vol] 1.67 ng/mL Normal <=3.60 [facility] Comment on above: Performed By: #### C TEGAN MARIN #### [facility] [address] [place] [address] Dr. Mirza Sadler HSTROP 17.1 pg/mL Normal 4.0-76.1 [facility] Comment on above: Result Comment: CUT- OFF POINTS HAVE BEEN ESTABLISHED BASED ON THE FOURTH UNIVERSAL DEFINITIONS OF MYOCARDIAL INFARCTION. THE UPPER REFERENCE LIMIT (URL) OF TROPONIN, DEFINED THE 99TH PERCENTILE OF cTnI DISTRIBUTION IN A REFERENCE POPULATION, HAS BEEN CONFIRMED THE DECISION THRESHOLD FOR [place] DIAGNOSIS. Performed By: #### C TEGAN MARIN #### [facility] [address] [place] [address] Dr. Mirza Sadler RACHEL 63 ng/mL Normal 16-96 [facility] Comment on above: Performed By: #### C MP, CMADM #### [facility] [address] [place] [address] Dr. Mirza Sadler CBC AUTO DIFFon 01-15-2022 BASO # 0.1 103/ul Normal 0.0-0.1 [facility] Comment on above: Performed By: #### E RUR #### [facility] [address] [place] [address] Dr. Mirza Sadler Basophils/100 WBC (Bld) 0.9 % Normal 0.2-2.0 [facility] Comment on above: Performed By: #### E RUR #### [facility] [address] [place] [address] Dr. Mirza Sadler EO # 0.3 103/ul Normal 0.0-0.7 [facility] Comment on above: Performed By: #### E RUR #### [facility] [address] [place] [address] Dr. Mirza Sadler Eosinophils/100 WBC (Bld) 3.1 % Normal 0.9-7.0 [facility] Comment on above: Performed By: #### E RUR #### [facility] [address] [place] [address] Dr. Mirza Sadler Erythrocyte distribution width (RBC) [Ratio] 14.2 % Normal 11.0-15.0 [facility] Comment on above: Performed By: #### E RUR #### [facility] [address] [place] [address] Dr. Mirza Sadler Hematocrit (Bld) [Volume fraction] 44.4 % Normal 42.0-54.0 [facility] Comment on above: Performed By: #### E RUR #### [facility] [address] [place] [address] Dr. Mirza Sadler Hemoglobin (Bld) [Mass/Vol] 14.4 g/dL Normal 14.0-18.0 [facility] Comment on above: Performed By: #### E RUR #### [facility] [address] [place] [address] Dr. Mirza Sadler IG # 0.03 10e3/ul Normal 0.00-0.03 [facility] Comment on above: Performed By: #### E RUR #### [facility] [address] [place] [address] Dr. Mirza Sadler IG % 0.3 % Normal 0.0-0.5 [facility] Comment on above: Performed By: #### E RUR #### [facility] [address] [place] [address] Dr. Mirza Sadler LYMPH # 1.6 103/ul Normal 1.2-3.8 [facility] Comment on above: Performed By: #### E RUR #### [facility] [address] [place] [address] Dr. Mirza Sadler Lymphocytes/100 WBC (Bld) 16.8 % Critically low 20.5-60.0 [facility] Comment on above: Performed By: #### E RUR #### [facility] [address] [place] [address] Dr. Mirza Sadler MANUAL DIFF REQ NO Normal [facility] Comment on above: Performed By: #### E RUR #### [facility] [address] [place] [address] Dr. Mirza Sadler MCH (RBC) [Entitic mass] 29.4 pg Normal 25.9-34.0 [facility] Comment on above: Performed By: #### E RUR #### [facility] [address] [place] [address] Dr. Mirza Sadler MCHC (RBC) [Mass/Vol] 32.4 g/dL Normal 29.9-35.2 [facility] Comment on above: Performed By: #### E RUR #### [facility] [address] [place] [address] Dr. Mirza Sadelr MCV (RBC) [Entitic vol] 90.6 fL Normal 80.0-94.0 [facility] Comment on above: Performed By: #### E RUR #### [facility] [address] [place] [address] Dr. Mirza Sadler MONO # 0.5 103/ul Normal 0.3-0.8 [facility] Comment on above: Performed By: #### E RUR #### [facility] [address] [place] [address] Dr. Mizra Sadler Monocytes/100 WBC (Bld) 5.9 % Normal 1.7-12.0 [facility] Comment on above: Performed By: #### E RUR #### [facility] [address] [place] [address] Dr. Mirza Sadler NEUT # 6.7 103/ul Critically high 1.4-6.5 [facility] Comment on above: Performed By: #### E RUR #### [facility] [address] [place] [address] Dr. Mirza Sadler Neutrophils/100 WBC (Bld) 73.0 % Normal 43.0-75.0 [facility] Comment on above: Performed By: #### E RUR #### [facility] [address] [place] [address] Dr. Mirza Sadler Platelet mean volume (Bld) [Entitic vol] 10.0 fL Normal 9.5-13.5 [facility] Comment on above: Performed By: #### E RUR #### [facility] [address] [place] [address] Dr. Mirza Sadler PLT 190 103/ul Normal 150-450 [facility] Comment on above: Performed By: #### E RUR #### [facility] [address] [place] [address] Dr. Mirza Sadler RBC 4.90 106/ul Normal 4.70-6.10 [facility] Comment on above: Performed By: #### E RUR #### [facility] [address] [place] [address] Dr. Mirza Sadler WBC 9.2 103/ul Normal 4.0-11.0 [facility] Comment on above: Performed By: #### E RUR #### [facility] [address] [place] [address] CHEST WO CONon [...] FLANAGAN Date: 2022-01-15 08:19 Normal [facility] CULTURE BLOODon 01-15-2022 Microscopic examination of blood, culture Culture Observations: NO GROWTH AT 5 DAYS. Normal [facility] Comment on above: Performed By: #### H STROPN #### [facility] [address] [address] [address] Mirza Sadler Microscopic examination of blood, culture Culture Observations: NO GROWTH AT 5 DAYS. Normal [facility] Comment on above: Performed By: #### B LDCX1 #### [facility] [address] [place] [address] Dr. Mirza Sadler [facility]on [facility]30 SARS-CoV-2 (COVID-19) RNA RAMO+probe Ql (Unsp spec) Not detected Normal NOT DETECTED [facility] Comment on above: Result Comment: When [...] for this test is supported by the [employer] of [employer] and Human Service's declaration [...] longer be used). Performed By: #### B METER RECORD CLERK #### [facility] [address] [place] [address] Dr. Mirza Sadler ER URINE PROFILEon Bilirubin Ql (U) Negative Normal NEGATIVE [facility] Comment on above: Performed By: #### C TANIA CMADM #### [facility] [address] [place] [address] Dr. Mirza Sadler Clarity (U) CLEAR Normal CLEAR [facility] Comment on above: Performed By: #### C TANIA, CMADM #### [facility] [address] [place] [address] Dr. Mirza Sadler Color (U) LT. YELLOW Normal YELLOW [facility] Comment on above: Performed By: #### C TANIA, CMADM #### [facility] [address] [place] [address] Dr. Mirza Sadler ERUAHD A micrscopic examina tion will be performed if indicated. Normal [facility] Comment on above: Performed By: #### C MP, CMADM #### [facility] [address] [place] [address] Dr. Mirza Sadler Glucose Ql (U) >1000 Abnormal NEGATIVE [facility] Comment on above: Performed By: #### C MP, CMADM #### [facility] [address] [address] [address] Mirza Sadler Hemoglobin Ql (U) Negative Normal NEGATIVE [facility] Comment on above: Performed By: #### C MP, CMADM #### [facility] [address] [place] [address] Dr. Mirza Sadler Ketones Ql (U) TRACE Abnormal NEGATIVE [facility] Comment on above: Performed By: #### C MP, CMADM #### [facility] [address] [place] [address] Dr. Mirza Sadler LEUKOCYTES Negative Normal NEGATIVE [facility] Comment on above: Performed By: #### C MP, CMADM #### [facility] [address] [place] [address] Dr. Mirza Sadler Nitrite Ql (U) Negative Normal NEGATIVE [facility] Comment on above: Performed By: #### C TANIA, CMADM #### [facility] [address] [place] [address] Dr. Mirza Sadler pH (U) 5.5 [pH] Normal 5-9 [facility] Comment on above: Performed By: #### C TANIA, CMADM #### [facility] [address] [place] [address] Dr. Mirza Sadler SPEC GRAVITY 1.020 Normal 1.005-<=1. 025 [facility] Comment on above: Performed By: #### C MP, CMADM #### [facility] [address] [place] [address] Dr. Mirza Sadler UA PROTEIN TRACE Normal NEGATIVE/ TRACE [facility] Comment on above: Performed By: #### C MP, CMADM #### [facility] [address] [place] [address] Dr. Mirza Sadler UR MICRO IND NOT INDICATED Normal [facility] Comment on above: Performed By: #### C TANIA, CMADM #### [facility] [address] [place] [address] Dr. Mirza Sadler Urobilinogen Qn (U) 0.2 {Luisito'U}/dL Normal 0.2 - 1. 0 [facility] Comment on above: Performed By: #### C TANIA, CMADM #### [facility] [address] [place] [address] Dr. Mirza Sadler LACTATE/LACTIC ACIDon 2021 Lactate [Moles/Vol] 0.8 mmol/L Normal 0.4-1.9 [facility] Comment on above: Performed By: #### P T, PTT #### [facility] [address] [place] [address] Dr. Mirza Sadler PROF 14(COMP METB)on 022 Albumin [Mass/Vol] 4.4 g/dL Normal 3.4-5.0 [facility] Comment on above: Performed By: #### C TANIA, CMADM #### [facility] [address] [place] [address] Dr. Mirza Sadler Albumin/Globulin [Mass ratio] 1.3 {ratio} Normal [facility] Comment on above: Performed By: #### C TANIA, CMADM #### [facility] [address] [place] [address] Dr. Mirza Sadler ALP [Catalytic activity/Vol] 155 U/L Critically high 46-116 [facility] Comment on above: Performed By: #### C TANIA, CMADM #### [facility] [address] [place] [address] Dr. Mirza Sadler ALT [Catalytic activity/Vol] 27 U/L Normal 16-63 [facility] Comment on above: Performed By: #### C TANIA, CMADM #### [facility] [address] [place] [address] Dr. Mirza Sadler Anion gap [Moles/Vol] 14.9 mmol/L Normal [facility] Comment on above: Performed By: #### C TANIA, CMADM #### [facility] [address] [place] [address] Dr. Mirza Sadler AST [Catalytic activity/Vol] 22 U/L Normal 15-37 [facility] Comment on above: Performed By: #### C TANIA, CMADM #### [facility] [address] [address] [address] Mirza Sadler Bilirubin [Mass/Vol] 0.8 mg/dL Normal 0.2-1.0 [facility] Comment on above: Performed By: #### C TANIA, CMADM #### [facility] [address] [address] [address] Mirza Sadler Calcium [Mass/Vol] 8.8 mg/dL Normal 8.5-10.1 [facility] Comment on above: Performed By: #### C TANIA, CMADM #### [facility] [address] [address] [address] Mirza Sadler Chloride [Moles/Vol] 106 mmol/L Normal 98-107 [facility] Comment on above: Performed By: #### C TANIA, CMADM #### [facility] [address] [address] [address] Mirza Sadler CO2 [Moles/Vol] 23.9 mmol/L Normal 21.0-32.0 [facility] Comment on above: Performed By: #### C TANIA, CMADM #### [facility] [address] [place] [address] Dr. Mirza Sadler Creatinine [Mass/Vol] 1.51 mg/dL Critically high 0.70-1.30 [facility] Comment on above: Performed By: #### C TANIA, CMADM #### [facility] [address] [address] [address] Mirza Sadler EGFR-AF SAMOAN 56 mL/min/1.73m2 Critically low >=60 [facility] Comment on above: Performed By: #### C TANIA, CMADM #### [facility] [address] [address] [address] Mirza Sadler EGFR-NON AF SAMOAN 46 mL/min/1.73m2 Critically low >=60 [facility] Comment on above: Performed By: #### C TANIA, CMADM #### [facility] [address] [address] [address] Mirza Sadler Globulin (S) [Mass/Vol] 3.4 g/dL Normal [facility] Comment on above: Performed By: #### C MP, CMADM #### [facility] [address] [address] [address] Mirza Sadler Glucose [Mass/Vol] 189 mg/dL Critically high 74-106 [facility] Comment on above: Performed By: #### C MP, CMADM #### [facility] [address] [address] [address] Mirza Sadler Potassium [Moles/Vol] 3.8 mmol/L Normal 3.5-5.1 [facility] Comment on above: Performed By: #### C TANIA, CMADM #### [facility] [address] [place] [address] Dr. Mirza Sadler Protein [Mass/Vol] 7.8 g/dL Normal 6.4-8.2 [facility] Comment on above: Performed By: #### C TANIA, CMADM #### [facility] [address] [address] [address] Mirza Sadler Sodium [Moles/Vol] 141 mmol/L Normal 136-145 [facility] Comment on above: Performed By: #### C MP, CMADM #### [facility] [address] [address] [address] Mirza Sadler Urea nitrogen [Mass/Vol] 22.0 mg/dL Critically high 7.0-18.0 [facility] Comment on above: Performed By: #### C MP, CMADM #### [facility] [address] [address] [address] Mirza Sadler Urea nitrogen/Creatinine [Mass ratio] 14.6 mg/mg Normal [facility] Comment on above: Performed By: #### C MP, CMADM #### [facility] [address] [address] [address] Mirza Sadler PROTIMEon 01-15-2022 INR Coag (PPP) [Relative time] 1.10 {INR} Normal [facility] Comment on above: Performed By: #### E RUR #### [facility] [address] [place] [address] Dr. Mirza Sadler INR GUIDELINES SEE BELOW Normal [facility] Comment on above: Result Comment: RIVKA RED INR: 2.0 - 3.0 CONDITIONS NOT LISTED BELOW 2.5 - 3.5 FOR PROSTHETIC HEART VALVE REPLACEMENT 2.5 - 3.5 RECURRENT THROMBOSIS Performed By: #### E RUR #### [facility] [address] [place] [address] Dr. Mirza Sadler PT Coag (PPP) [Time] 11.8 s Critically high 9.0-11.6 [facility] Comment on above: Performed By: #### E RUR #### [facility] [address] [place] [address] Dr. Mirza Sadler PTTon 01-15-2022 aPTT Coag (Bld) [Time] 29.0 s Normal 22.3-36.2 [facility] Comment on above: Performed By: #### E RUR #### [facility] [address] [place] [address] Dr. Mirza Sadler TROPONIN, HIGH SENSITIVITYon 01-15-2022 HSTROP 1786.2 pg/mL Critically high 4.0-76.1 [facility] Comment on above: Result Comment: CUT- OFF POINTS HAVE BEEN ESTABLISHED BASED ON THE FOURTH UNIVERSAL DEFINITIONS OF MYOCARDIAL INFARCTION. THE UPPER REFERENCE LIMIT (URL) OF TROPONIN, DEFINED THE 99TH PERCENTILE OF cTnI DISTRIBUTION IN A REFERENCE POPULATION, HAS BEEN CONFIRMED THE DECISION THRESHOLD FOR [place] DIAGNOSIS. Performed By: #### H STROPN #### [facility] [address] [place] [address] Dr. Mirza Sadler HSTROP 669.3 pg/mL Critically high 4.0-76.1 [facility] Comment on above: Result Comment: CUT- OFF POINTS HAVE BEEN ESTABLISHED BASED ON THE FOURTH UNIVERSAL DEFINITIONS OF MYOCARDIAL INFARCTION. THE UPPER REFERENCE LIMIT (URL) OF TROPONIN, DEFINED THE 99TH PERCENTILE OF cTnI DISTRIBUTION IN A REFERENCE POPULATION, HAS BEEN CONFIRMED THE DECISION THRESHOLD FOR [place] DIAGNOSIS. Performed By: #### H STROPN #### [facility] [address] [address] [address] Mirza Sadler XR CHEST 1 Von [...] by: WAYNE CASEY Date: 2022-01-15 06:42 Normal [facility] A1C HEMOGLOBINon 12-18-2021 HbA1c (Bld) [Mass fraction] 6.2 % [employer] Other Glucose - FINGER STICKon Glucose [Mass/Vol] 120 mg/dL [employer] Other HbA1c (Bld) [Mass fraction]o n 12-18-2021 A1C HEMOGLOBIN [employer] Other XR CHEST 2 Von 12-08-2021 XR [...] by: HIGINIO FLANAGAN Date: 2021-12-08 16:07 Normal [facility] PTH INTACTon 12-01-2021 PTH, Intact 15 pg/mL Normal 15-65 [facility] Comment on above: Performed By: #### C MP, CMADM #### [facility] [address] [address] [address] Mirza Sadler VIT D 25-OH [facility]ABC[facility]on 2021 Vitamin D, 25-Hydroxy 41.2 ng/mL Normal 30.0-100.0 [facility] Comment on above: Result Comment: [place] min D deficiency has been defined by the [employer] of [employer] and an Endocrine Society practice guideline as a level of serum 25-OH vitamin D less than 20 ng/mL (1,2). The Endocrine Society went on to further define vitamin D insufficiency as a level between 21 and 29 ng/mL (2). 1. IOM ([employer] of Medicine). 2010. Dietary reference intakes for calcium and D. [place]: The National Academies Press. 2. Noemy MF, Sonam PAUL, Jake HERMOSILLO, et al. Evaluation, treatment, and prevention of vitamin D deficiency: an Endocrine Society clinical practice guideline. JCEM. 2010; 96(7):1911-30. Performed By: #### P T, PTT #### [facility] [address] [address] [address] Mirza Sadler HEMOGRAM AND PLATELon 2021 Hematocrit (Bld) [Volume fraction] 39.9 % Critically low 42.0-54.0 [facility] Comment on above: Performed By: #### P T, PTT #### [facility] [address] [address] [address] Mirza Sadler Hemoglobin (Bld) [Mass/Vol] 13.1 g/dL Critically low 14.0-18.0 [facility] Comment on above: Performed By: #### P T, PTT #### [facility] [address] [address] [address] Mirza Sadler MCH (RBC) [Entitic mass] 29.5 pg Normal 25.9-34.0 [facility] Comment on above: Performed By: #### P T, PTT #### [facility] [address] [address] [address] Mirza Sadler MCHC (RBC) [Mass/Vol] 32.8 g/dL Normal 29.9-35.2 [facility] Comment on above: Performed By: #### P T, PTT #### [facility] [address] [place] [address] Dr. Mirza Sadler MCV (RBC) [Entitic vol] 89.9 fL Normal 80.0-94.0 [facility] Comment on above: Performed By: #### P T, PTT #### [facility] [address] [place] [address] Dr. Mirza Sadler PLT 182 103/ul Normal 150-450 [facility] Comment on above: Performed By: #### P T, PTT #### [facility] [address] [place] [address] Dr. Mirza Sadler RBC 4.44 106/ul Critically low 4.70-6.10 [facility] Comment on above: Performed By: #### P T, PTT #### [facility] [address] [place] [address] Dr. Mirza Sadler WBC 6.9 103/ul Normal 4.0-11.0 [facility] Comment on above: Performed By: #### P T, PTT #### [facility] [address] [place] [address] Dr. Mirza Sadler MAGNESIUMon 11-30-2021 Magnesium [Mass/Vol] 1.8 mg/dL Normal 1.8-2.4 [facility] Comment on above: Performed By: #### P T, PTT #### [facility] [address] [place] [address] Dr. Mirza Sadler RENAL FUNCTION PANELon 11-30 Albumin [Mass/Vol] 3.9 g/dL Normal 3.4-5.0 [facility] Comment on above: Performed By: #### P T, PTT #### [facility] [address] [place] [address] Dr. Mirza Sadler Calcium [Mass/Vol] 9.0 mg/dL Normal 8.5-10.1 [facility] Comment on above: Performed By: #### P T, PTT #### [facility] [address] [address] [address] Mirza Sadler Chloride [Moles/Vol] 107 mmol/L Normal 98-107 [facility] Comment on above: Performed By: #### P T, PTT #### [facility] [address] [place] [address] Dr. Mirza Sadler CO2 [Moles/Vol] 26.2 mmol/L Normal 21.0-32.0 [facility] Comment on above: Performed By: #### P T, PTT #### [facility] [address] [place] [address] Dr. Mirza Sadler Creatinine [Mass/Vol] 1.55 mg/dL Critically high 0.70-1.30 [facility] Comment on above: Performed By: #### P T, PTT #### [facility] [address] [place] [address] Dr. Mirza Sadler EGFR-AF SAMOAN 54 mL/min/1.73m2 Critically low >=60 [facility] Comment on above: Performed By: #### P T, PTT #### [facility] [address] [place] [address] Dr. Mirza Sadler EGFR-NON AF SAMOAN 45 mL/min/1.73m2 Critically low >=60 [facility] Comment on above: Performed By: #### P T, PTT #### [facility] [address] [place] [address] Dr. Mirza Sadler Glucose [Mass/Vol] 166 mg/dL Critically high 74-106 [facility] Comment on above: Performed By: #### P T, PTT #### [facility] [address] [place] [address] Dr. Mirza Sadler Phosphate [Mass/Vol] 3.7 mg/dL Normal 2.6-4.7 [facility] Comment on above: Performed By: #### P T, PTT #### [facility] [address] [place] [address] Dr. Mirza Sadler Potassium [Moles/Vol] 4.2 mmol/L Normal 3.5-5.1 [facility] Comment on above: Performed By: #### P T, PTT #### [facility] [address] [place] [address] Dr. Mirza Sadler Sodium [Moles/Vol] 142 mmol/L Normal 136-145 [facility] Comment on above: Performed By: #### P T, PTT #### [facility] [address] [place] [address] Dr. Mirza Sadler Urea nitrogen [Mass/Vol] 16.0 mg/dL Normal 7.0-18.0 [facility] Comment on above: Performed By: #### P T, PTT #### [facility] [address] [place] [address] Dr. Mirza Sadler UA RANDOM W/MICROSCOPICon BACTERIA NONE SEEN Normal NONE SEEN [facility] Comment on above: Performed By: #### B LDCX2 #### [facility] [address] [place] [address] Dr. Mirza Sadler Bilirubin Ql (U) Negative Normal NEGATIVE [facility] Comment on above: Performed By: #### B LDCX2 #### [facility] [address] [place] [address] Dr. Mirza Sadler CAST NONE SEEN Normal NONE SEEN [facility] Comment on above: Performed By: #### B LDCX2 #### [facility] [address] [place] [address] Dr. Mirza Sadler Clarity (U) CLEAR Normal CLEAR [facility] Comment on above: Performed By: #### B LDCX2 #### [facility] [address] [place] [address] Dr. Mirza Sadler Color (U) LT. YELLOW Normal YELLOW [facility] Comment on above: Performed By: #### B LDCX2 #### [facility] [address] [place] [address] Dr. Mirza Sadler Crystals LM Nom (Urine sed) NONE SEEN Normal NONE SEEN [facility] Comment on above: Performed By: #### B LDCX2 #### [facility] [address] [place] [address] Dr. Mirza Sadler Epithelial cells LM Ql (Urine sed) RARE Normal NONE SEEN /RARE [facility] Comment on above: Performed By: #### B LDCX2 #### [facility] [address] [address] [address] Mirza Sadler Glucose Ql (U) >1000 Abnormal NEGATIVE [facility] Comment on above: Performed By: #### B LDCX2 #### [facility] [address] [place] [address] Dr. Mirza Sadler Hemoglobin Ql (U) Negative Normal NEGATIVE [facility] Comment on above: Performed By: #### B LDCX2 #### [facility] [address] [address] [address] Mirza Sadler Ketones Ql (U) Negative Normal NEGATIVE [facility] Comment on above: Performed By: #### B LDCX2 #### [facility] [address] [place] [address] Dr. Mirza Sadler LEUKOCYTES Negative Normal NEGATIVE [facility] Comment on above: Performed By: #### B LDCX2 #### [facility] [address] [place] [address] Dr. Mirza Sadler MUCOUS NONE SEEN Normal NONE SEEN [facility] Comment on above: Performed By: #### B LDCX2 #### [facility] [address] [place] [address] Dr. Mirza Sadler Nitrite Ql (U) Negative Normal NEGATIVE [facility] Comment on above: Performed By: #### B LDCX2 #### [facility] [address] [place] [address] Dr. Mirza Sadler pH (U) 5.5 [pH] Normal 5-9 [facility] Comment on above: Performed By: #### B LDCX2 #### [facility] [address] [address] [address] Mirza Sadler RBC NONE SEEN Abnormal 0-2 [facility] Comment on above: Performed By: #### B LDCX2 #### [facility] [address] [place] [address] Dr. Mirza Sadler SPEC GRAVITY 1.015 Normal 1.005-<=1. 025 [facility] Comment on above: Performed By: #### B LDCX2 #### [facility] [address] [address] [address] Mirza Sadler UA PROTEIN Negative Normal NEGATIVE/ TRACE [facility] Comment on above: Performed By: #### B LDCX2 #### [facility] [address] [address] [address] Mirza Sadler Urobilinogen Qn (U) 0.2 {Luisito'U}/dL Normal 0.2 - 1. 0 [facility] Comment on above: Performed By: #### B LDCX2 #### [facility] [address] [place] [address] Dr. Mirza Sadler WBC NONE SEEN Normal NONE SEEN [facility] Comment on above: Performed By: #### B LDCX2 #### [facility] [address] [place] [address] Dr. Mirza Sadler URINE T PROTEIN CREAT RATIOo n 11-30-2021 Protein (U) [Mass/Vol] 22.4 mg/dL Critically high <=12.0 [facility] Comment on above: Performed By: #### U RTPCR #### [facility] [address] [place] [address] Dr. Mirza Sadler UR PROT CREAT RAT 0.31 Normal [facility] Comment on above: Performed By: #### U RTPCR #### [facility] [address] [place] [address] Dr. Mirza Sadler URINE CREAT 73.05 mg/dL Normal 20.00-300. 00 [facility] Comment on above: Performed By: #### U RTPCR #### [facility] [address] [place] [address] Dr. Mirza Sadler NM HEPATOBILIARY SCAN W [...] by: HIGINIO FLANAGAN Date: 2021-11-24 11:55 Normal [facility] BNPon 10-27-2021 Natriuretic peptide B (Bld) [Mass/Vol] 574.0 pg/mL Normal <=900.0 [facility] Comment on above: Performed By: #### P T, PTT #### [facility] [address] [place] [address] Dr. Mirza Sadler CARDIAC PARUL ADMITon 022 CK [Catalytic activity/Vol] 70 U/L Normal 39-308 [facility] Comment on above: Performed By: #### P T, PTT #### [facility] [address] [place] [address] Dr. Mirza Sadler CK.MB [Mass/Vol] 1.10 ng/mL Normal <=3.60 [facility] Comment on above: Performed By: #### P T, PTT #### [facility] [address] [place] [address] Dr. Mirza Sadler HSTROP 22.3 pg/mL Normal 4.0-76.1 [facility] Comment on above: Result Comment: CUT- OFF POINTS HAVE BEEN ESTABLISHED BASED ON THE FOURTH UNIVERSAL DEFINITIONS OF MYOCARDIAL INFARCTION. THE UPPER REFERENCE LIMIT (URL) OF TROPONIN, DEFINED THE 99TH PERCENTILE OF cTnI DISTRIBUTION IN A REFERENCE POPULATION, HAS BEEN CONFIRMED THE DECISION THRESHOLD FOR [place] DIAGNOSIS. Performed By: #### P T, PTT #### [facility] [address] [place] [address] Dr. Mirza Sadler RACHEL 81 ng/mL Normal 16-96 [facility] Comment on above: Performed By: #### P T, PTT #### [facility] [address] [place] [address] Dr. Mirza Sadler CBC AUTO DIFFon 10-27-2021 BASO # 0.1 103/ul Normal 0.0-0.1 [facility] Comment on above: Performed By: #### E RUR #### [facility] [address] [place] [address] Dr. Mirza Sadler Basophils/100 WBC (Bld) 0.4 % Normal 0.2-2.0 [facility] Comment on above: Performed By: #### E RUR #### [facility] [address] [place] [address] Dr. Mirza Sadler EO # 0.1 103/ul Normal 0.0-0.7 [facility] Comment on above: Performed By: #### E RUR #### [facility] [address] [place] [address] Dr. Mirza Sadler Eosinophils/100 WBC (Bld) 0.4 % Critically low 0.9-7.0 [facility] Comment on above: Performed By: #### E RUR #### [facility] [address] [place] [address] Dr. Mirza Sadler Erythrocyte distribution width (RBC) [Ratio] 14.1 % Normal 11.0-15.0 [facility] Comment on above: Performed By: #### E RUR #### [facility] [address] [place] [address] Dr. Mirza Sadler Hematocrit (Bld) [Volume fraction] 41.0 % Critically low 42.0-54.0 [facility] Comment on above: Performed By: #### E RUR #### [facility] [address] [place] [address] Dr. Mirza Sadler Hemoglobin (Bld) [Mass/Vol] 14.1 g/dL Normal 14.0-18.0 [facility] Comment on above: Performed By: #### E RUR #### [facility] [address] [place] [address] Dr. Mirza Sadler IG # 0.05 10e3/ul Critically high 0.00-0.03 [facility] Comment on above: Performed By: #### E RUR #### [facility] [address] [address] [address] Mirza Sadler IG % 0.4 % Normal 0.0-0.5 [facility] Comment on above: Performed By: #### E RUR #### [facility] [address] [place] [address] Dr. Mirza Sadler LYMPH # 0.9 103/ul Critically low 1.2-3.8 [facility] Comment on above: Performed By: #### E RUR #### [facility] [address] [place] [address] Dr. Mirza Sadler Lymphocytes/100 WBC (Bld) 6.6 % Critically low 20.5-60.0 [facility] Comment on above: Performed By: #### E RUR #### [facility] [address] [place] [address] Dr. Mirza Sadler MANUAL DIFF REQ NO Normal [facility] Comment on above: Performed By: #### E RUR #### [facility] [address] [place] [address] Dr. Mirza Sadler MCH (RBC) [Entitic mass] 29.7 pg Normal 25.9-34.0 [facility] Comment on above: Performed By: #### E RUR #### [facility] [address] [place] [address] Dr. Mirza Sadler MCHC (RBC) [Mass/Vol] 34.4 g/dL Normal 29.9-35.2 [facility] Comment on above: Performed By: #### E RUR #### [facility] [address] [place] [address] Dr. Mirza Sadler MCV (RBC) [Entitic vol] 86.3 fL Normal 80.0-94.0 [facility] Comment on above: Performed By: #### E RUR #### [facility] [address] [place] [address] Dr. Mirza Sadler MONO # 0.4 103/ul Normal 0.3-0.8 [facility] Comment on above: Performed By: #### E RUR #### [facility] [address] [place] [address] Dr. Mirza Sadler Monocytes/100 WBC (Bld) 2.6 % Normal 1.7-12.0 [facility] Comment on above: Performed By: #### E RUR #### [facility] [address] [place] [address] Dr. Mirza Sadler NEUT # 12.2 103/ul Critically high 1.4-6.5 [facility] Comment on above: Performed By: #### E RUR #### [facility] [address] [place] [address] Dr. Mirza Sadler Neutrophils/100 WBC (Bld) 89.6 % Critically high 43.0-75.0 [facility] Comment on above: Performed By: #### E RUR #### [facility] [address] [place] [address] Dr. Mirza Sadler Platelet mean volume (Bld) [Entitic vol] 9.7 fL Normal 9.5-13.5 [facility] Comment on above: Performed By: #### E RUR #### [facility] [address] [place] [address] Dr. Mirza Sadler PLT 183 103/ul Normal 150-450 [facility] Comment on above: Performed By: #### E RUR #### [facility] [address] [place] [address] Dr. Mirza Sadler RBC 4.75 106/ul Normal 4.70-6.10 [facility] Comment on above: Performed By: #### E RUR #### [facility] [address] [place] [address] Dr. Mirza Sadler WBC 13.7 103/ul Critically high 4.0-11.0 [facility] Comment on above: Performed By: #### E RUR #### [facility] [address] [place] [address] Dr. Mirza Sadler CULTURE BLOODon 10-27-2021 Microscopic examination of blood, culture Culture Observations: NO GROWTH AT 5 DAYS. Normal [facility] Comment on above: Performed By: #### B LDCX2 #### [facility] [address] [place] [address] Dr. Mirza Sadler Performed By: #### H STROPN #### [facility] [address] [place] [address] Dr. Mirza Sadler Covid-19 PCR ([facility])on 09-30 SARS-CoV-2 (COVID-19) RNA RAMO+probe Ql (Unsp spec) Not detected Normal NOT DETECTED [facility] Comment on above: Result Comment: When [...] for this test is supported by the [employer] and [employer] Service's declaration [...] By: #### P T, PTT #### [facility] [address] [place] [address] Dr. Mirza Sadler ER URINE PROFILEon 2 Bilirubin Ql (U) Negative Normal NEGATIVE [facility] Comment on above: Performed By: #### H STROPN #### [facility] [address] [place] [address] Dr. Mirza Sadler Clarity (U) CLEAR Normal CLEAR [facility] Comment on above: Performed By: #### H STROPN #### [facility] [address] [place] [address] Dr. Mirza Sadler Color (U) YELLOW Normal YELLOW [facility] Comment on above: Performed By: #### H STROPN #### [facility] [address] [place], [place] [id number] Dr. Mirza BUSTILLO A micrscopic examina tion will be performed if indicated. Normal [facility] Comment on above: Performed By: #### H STROPN #### [facility] [address] [place] [address] Dr. Mirza Sadler Glucose Ql (U) >1000 Abnormal NEGATIVE [facility] Comment on above: Performed By: #### H STROPN #### [facility] [address] [place] [address] Dr. Mirza Sadler Hemoglobin Ql (U) Negative Normal NEGATIVE [facility] Comment on above: Performed By: #### H STROPN #### [facility] [address] [place] [address] Dr. Mirza Sadler Ketones Ql (U) TRACE Abnormal NEGATIVE [facility] Comment on above: Performed By: #### H STROPN #### [facility] [address] [place] [address] Dr. Mirza Sadler LEUKOCYTES Negative Normal NEGATIVE [facility] Comment on above: Performed By: #### H STROPN #### [facility] [address] [place] [address] Dr. Mirza Sadler Nitrite Ql (U) Negative Normal NEGATIVE [facility] Comment on above: Performed By: #### H STROPN #### [facility] [address] [place] [address] Dr. Mirza Sadler pH (U) 5.5 [pH] Normal 5-9 [facility] Comment on above: Performed By: #### H STROPN #### [facility] [address] [place] [address] Dr. Mirza Sadler SPEC GRAVITY 1.010 Normal 1.005-<=1. 025 [facility] Comment on above: Performed By: #### H STROPN #### [facility] [address] [place] [address] Dr. Mirza Sadler UA PROTEIN Negative Normal NEGATIVE/ TRACE [facility] Comment on above: Performed By: #### H STROPN #### [facility] [address] [place] [address] Dr. Mirza Sadler UR MICRO IND NOT INDICATED Normal [facility] Comment on above: Performed By: #### H STROPN #### [facility] [address] [place] [address] Dr. Mirza Sadler Urobilinogen Qn (U) 0.2 {Luisito'U}/dL Normal 0.2 - 1. 0 [facility] Comment on above: Performed By: #### H STROPN #### [facility] [address] [place] [address] Dr. Mirza Sadler INFLUENZA A AND B AGon 10-27 INFLUANEGH SEE BELOW Normal [facility] Comment on above: Result Comment: Nega tive for Flu A protein angiten. Infection due to Flu A cannot be ruled out. Flu A angiten in the sample may be below the detection limit of the test. Performed By: #### B METER RECORD CLERK #### [facility] [address] [place] [address] Dr. Mirza Sadler INFLUBNEGH SEE BELOW Normal [facility] Comment on above: Result Comment: Nega tive for Flu B protein antigen. Infection due to Flu B cannot be ruled out. Flu B antigen in the sample may be below the detection limit of the test. Performed By: #### B METER RECORD CLERK #### [facility] [address] [place] [address] Dr. Mirza Sadler INFLUENZA A AG Negative Normal NEGATIVE SEE COMMENT [facility] Comment on above: Performed By: #### B METER RECORD CLERK #### [facility] [address] [place] [address] Dr. Mirza Sadler INFLUENZA B AG Negative Normal NEGATIVE SEE COMMENT [facility] Comment on above: Performed By: #### B METER RECORD CLERK #### [facility] [address] [place] [address] Dr. Mirza Sadler INTERNAL CONTROLS Within Normal Limits Normal Wi thin Normal Limits [facility] Comment on above: Performed By: #### B METER RECORD CLERK #### [facility] [address] [place] [address] Dr. Mirza Sadler LACTATE/LACTIC ACIDon 2021 Lactate [Moles/Vol] 1.8 mmol/L Normal 0.4-1.9 [facility] Comment on above: Performed By: #### C MP, CMADM #### [facility] [address] [place] [address] Dr. Mirza Sadler LIPASEon 10-27-2021 Lipase [Catalytic activity/Vol] 87.0 U/L Normal 73.0-393.0 [facility] Comment on above: Performed By: #### P T, PTT #### [facility] [address] [place] [address] Dr. Mirza Sadler PH VENOUS BLOODon 10-27-2021 PCO2 VENOUS 37.6 mmHg Critically low 40.0-52.0 [facility] Comment on above: Performed By: #### P T, PTT #### [facility] [address] [place] [address] Dr. Mirza Sadler pH VENOUS 7.422 Normal 7.330-7.43 0 [facility] Comment on above: Performed By: #### P T, PTT #### [facility] [address] [place] [address] Dr. Mirza Sadler PROF 14(COMP METB)on 022 Albumin [Mass/Vol] 4.2 g/dL Normal 3.4-5.0 [facility] Comment on above: Performed By: #### P T, PTT #### [facility] [address] [place] [address] Dr. Mirza Sadler Albumin/Globulin [Mass ratio] 1.3 {ratio} Normal [facility] Comment on above: Performed By: #### P T, PTT #### [facility] [address] [place] [address] Dr. Mirza Sadler ALP [Catalytic activity/Vol] 121 U/L Critically high 46-116 [facility] Comment on above: Performed By: #### P T, PTT #### [facility] [address] [place] [address] Dr. Mirza Sadler ALT [Catalytic activity/Vol] 22 U/L Normal 16-63 [facility] Comment on above: Performed By: #### P T, PTT #### [facility] [address] [address] [address] Mirza Sadler Anion gap [Moles/Vol] 16.0 mmol/L Normal [facility] Comment on above: Performed By: #### P T, PTT #### [facility] [address] [place] [address] Dr. Mirza Sadler AST [Catalytic activity/Vol] 18 U/L Normal 15-37 [facility] Comment on above: Performed By: #### P T, PTT #### [facility] [address] [address] [address] Mirza Sadler Bilirubin [Mass/Vol] 1.3 mg/dL Critically high 0.2-1.0 [facility] Comment on above: Performed By: #### P T, PTT #### [facility] [address] [place] [address] Dr. Mirza Sadler Calcium [Mass/Vol] 8.9 mg/dL Normal 8.5-10.1 [facility] Comment on above: Performed By: #### P T, PTT #### [facility] [address] [place] [address] Dr. Mirza Sadler Chloride [Moles/Vol] 105 mmol/L Normal 98-107 [facility] Comment on above: Performed By: #### P T, PTT #### [facility] [address] [place] [address] Dr. Mirza Sadler CO2 [Moles/Vol] 23.7 mmol/L Normal 21.0-32.0 [facility] Comment on above: Performed By: #### P T, PTT #### [facility] [address] [place] [address] Dr. Mirza Sadler Creatinine [Mass/Vol] 1.79 mg/dL Critically high 0.70-1.30 [facility] Comment on above: Performed By: #### P T, PTT #### [facility] [address] [place] [address] Dr. Mirza Sadler EGFR-AF SAMOAN 46 mL/min/1.73m2 Critically low >=60 [facility] Comment on above: Performed By: #### P T, PTT #### [facility] [address] [address] [address] Mirza Sadler EGFR-NON AF SAMOAN 38 mL/min/1.73m2 Critically low >=60 [facility] Comment on above: Performed By: #### P T, PTT #### [facility] [address] [address] [address] Mirza Sadler Globulin (S) [Mass/Vol] 3.3 g/dL Normal [facility] Comment on above: Performed By: #### P T, PTT #### [facility] [address] [address] [address] Mirza Sadler Glucose [Mass/Vol] 195 mg/dL Critically high 74-106 [facility] Comment on above: Performed By: #### P T, PTT #### [facility] [address] [address] [address] Mirza Sadler Potassium [Moles/Vol] 3.7 mmol/L Normal 3.5-5.1 [facility] Comment on above: Performed By: #### P T, PTT #### [facility] [address] [address] [address] Mirza Sadler Protein [Mass/Vol] 7.5 g/dL Normal 6.4-8.2 [facility] Comment on above: Performed By: #### P T, PTT #### [facility] [address] [address] [address] Mirza Sadler Sodium [Moles/Vol] 141 mmol/L Normal 136-145 [facility] Comment on above: Performed By: #### P T, PTT #### [facility] [address] [address] [address] Mirza Sadler Urea nitrogen [Mass/Vol] 25.0 mg/dL Critically high 7.0-18.0 [facility] Comment on above: Performed By: #### P T, PTT #### [facility] [address] [address] [address] Mirza Sadler Urea nitrogen/Creatinine [Mass ratio] 14.0 mg/mg Normal [facility] Comment on above: Performed By: #### P T, PTT #### [facility] [address] [place] [address] Dr. Mirza Sadler PROTIMEon 10-27-2021 INR Coag (PPP) [Relative time] 1.07 {INR} Normal [facility] Comment on above: Performed By: #### P T, PTT #### [facility] [address] [place] [address] Dr. Mirza Sadler INR GUIDELINES SEE BELOW Normal [facility] Comment on above: Result Comment: RIVKA RED INR: 2.0 - 3.0 CONDITIONS NOT LISTED BELOW 2.5 - 3.5 FOR PROSTHETIC HEART VALVE REPLACEMENT 2.5 - 3.5 RECURRENT THROMBOSIS Performed By: #### P T, PTT #### [facility] [address] [place] [address] Dr. Mirza Sadler PT Coag (PPP) [Time] 11.5 s Normal 9.0-11.6 [facility] Comment on above: Performed By: #### P T, PTT #### [facility] [address] [place] [address] Dr. Mirza Sadler PTTon 10-27-2021 aPTT Coag (Bld) [Time] 25.1 s Normal 22.3-36.2 [facility] Comment on above: Performed By: #### P T, PTT #### [facility] [address] [place] [address] Dr. Mirza Sadler XR CHEST 1 Von [...] GAGAN CAREY Date: 2021-10-27 10:21 Normal [facility] C[facility] Tele[facility] (Space Apart) -- LANI LIZAMA Nakul ([id number]) 1950 M Date Time Provider Department 10/20/21 [...] Fully Assessed Reason for Visit: Lab Orders [1204] Primary Visit Diagnosis:Monoclonal gammopathy [D47.2] Order(s):CBC + DIFF [SQCBCDIF] Order #: [id number] FUTURE Prescriptions as of 10/24/2021 - famotidine [...] by VEE DAY on 10/24/21 Normal [facility] CT ABD/PELVIS WO CONon 10-03 CT [...] by: HIGINIO FLANAGAN Date: 2021-10-03 16:29 Normal [facility] PROF 14(COMP METB)on 022 Albumin [Mass/Vol] 4.1 g/dL Normal 3.4-5.0 [facility] Comment on above: Performed By: #### P T, PTT #### [facility] [address] [place] [address] Dr. Mirza Sadler Albumin/Globulin [Mass ratio] 1.2 {ratio} Normal [facility] Comment on above: Performed By: #### P T, PTT #### [facility] [address] [place] [address] Dr. Mirza Sadler ALP [Catalytic activity/Vol] 132 U/L Critically high 46-116 [facility] Comment on above: Performed By: #### P T, PTT #### [facility] [address] [place] [address] Dr. Mirza Sadler ALT [Catalytic activity/Vol] 30 U/L Normal 16-63 [facility] Comment on above: Performed By: #### P T, PTT #### [facility] [address] [place] [address] Dr. Mirza Sadler Anion gap [Moles/Vol] 10.7 mmol/L Normal [facility] Comment on above: Performed By: #### P T, PTT #### [facility] [address] [place] [address] Dr. Mirza Sadler AST [Catalytic activity/Vol] 21 U/L Normal 15-37 [facility] Comment on above: Performed By: #### P T, PTT #### [facility] [address] [place] [address] Dr. Mirza Sadler Bilirubin [Mass/Vol] 0.7 mg/dL Normal 0.2-1.0 [facility] Comment on above: Performed By: #### P T, PTT #### [facility] [address] [place] [address] Dr. Mirza Sadler Calcium [Mass/Vol] 9.0 mg/dL Normal 8.5-10.1 [facility] Comment on above: Performed By: #### P T, PTT #### [facility] [address] [place] [address] Dr. Mirza Sadler Chloride [Moles/Vol] 106 mmol/L Normal 98-107 [facility] Comment on above: Performed By: #### P T, PTT #### [facility] [address] [place] [address] Dr. Mirza Sadler CO2 [Moles/Vol] 27.5 mmol/L Normal 21.0-32.0 [facility] Comment on above: Performed By: #### P T, PTT #### [facility] [address] [place] [address] Dr. Mirza Sadler Creatinine [Mass/Vol] 1.77 mg/dL Critically high 0.70-1.30 [facility] Comment on above: Performed By: #### P T, PTT #### [facility] [address] [place] [address] Dr. Mirza Sadler EGFR-AF SAMOAN 46 mL/min/1.73m2 Critically low >=60 [facility] Comment on above: Performed By: #### P T, PTT #### [facility] [address] [place] [address] Dr. Mirza Sadler EGFR-NON AF SAMOAN 38 mL/min/1.73m2 Critically low >=60 [facility] Comment on above: Performed By: #### P T, PTT #### [facility] [address] [place] [address] Dr. Mirza Sadler Globulin (S) [Mass/Vol] 3.5 g/dL Normal [facility] Comment on above: Performed By: #### P T, PTT #### [facility] [address] [place] [address] Dr. Mirza Sadler Glucose [Mass/Vol] 135 mg/dL Critically high 74-106 [facility] Comment on above: Performed By: #### P T, PTT #### [facility] [address] [address] [address] Mirza Sadler Potassium [Moles/Vol] 4.2 mmol/L Normal 3.5-5.1 [facility] Comment on above: Performed By: #### P T, PTT #### [facility] [address] [address] [address] Mirza Sadler Protein [Mass/Vol] 7.6 g/dL Normal 6.4-8.2 [facility] Comment on above: Performed By: #### P T, PTT #### [facility] [address] [address] [address] Mirza Sadler Sodium [Moles/Vol] 140 mmol/L Normal 136-145 [facility] Comment on above: Performed By: #### P T, PTT #### [facility] [address] [address] [address] Mirza Sadler Urea nitrogen [Mass/Vol] 17.0 mg/dL Normal 7.0-18.0 [facility] Comment on above: Performed By: #### P T, PTT #### [facility] [address] [address] [address] Mirza Sadler Urea nitrogen/Creatinine [Mass ratio] 9.6 mg/mg Normal [facility] Comment on above: Performed By: #### P T, PTT #### [facility] [address] [address] [address] Mirza Sadlre US SINGLE QUAD RT UPPERon US SINGLE [...] by: HIGINIO FLANAGAN Date: 2021-08-27 08:40 Normal [facility] A1C HEMOGLOBINon 07-17-2021 HbA1c (Bld) [Mass fraction] 6.9 % [employer] Other Glucose - FINGER STICKon Glucose [Mass/Vol] 180 mg/dL [employer] Other HbA1c (Bld) [Mass fraction]o n 07-17-2021 A1C HEMOGLOBIN [employer] Other A1C with Estimated Average G luon 04-10-2021 HbA1c (Bld) [Mass fraction] 6.4 % [employer] Other HbA1c (Bld) [Mass fraction] 243 % [employer] Other Glucoseon 04-10-2021 Glucose [Mass/Vol] 243 mg/dL [employer] Other A1C HEMOGLOBINon 01-03-2021 HbA1c (Bld) [Mass fraction] 6.6 % [employer] Other Glucose - FINGER STICKon Glucose [Mass/Vol] 142 mg/dL [employer] Other HbA1c (Bld) [Mass fraction]o n 01-03-2021 A1C HEMOGLOBIN [employer] Other CNPEleanor 10-27-2020 [facility]Space Apart[facility] -- LANI LIZAMA ([id number]) 1950 M Date Time Provider Department 10/27/20 [...] by ANGELINE WARE on 10/28/20 Normal [facility] Cardiovascular Lab Reporton 10-16-2018 Cardiovascular Lab Report [facility] Patient Name: Lani Lizama [facility] MR #: [id number] Physician: Pinky Bishop, Department of M.D. Medicine Service Date: 10/15/2018 Division of Birthdate: 1950 Cardiology Room #: [id number] Adult Cardiovascular Services [place] [address] Cardiovascular Laboratory Report FINAL IMPRESSIONS: 1. Severe three-vessel [place] coronary artery disease. 2. Uoxt-oh-dgaz bypass grafts patent. 3. Mild in-stent restenosis [...] 4. Follow up with me in the [facility] in the next 4-6 weeks. 5. [...] guidance and using a micropuncture kit. A 6-Micronesian Glidesheath was inserted without difficulty. Coronary angiography [...] of the vessel. There is evidence of jjug-kv-tsizx collaterals. The distal vessel is supplied via [...] is a long stented segment in the mplwqbqi-oa-iutqkt portion of the vessel with 30% in-stent restenosis. The vessel distal to the touchdown shows caliber reduction and no discrete stenosis. There is diffuse disease in the branches. Saphenous vein graft to the posterior descending artery. This is widely patent. It shows an extensive stented segment from kfanmbnp-qo-ariyprqtbq of the vessel. There is a 40%-50% [...] Bishop M.D. Date Trans: 10/16/2018 05:01 Brandie [id number] cc: Harley Crespo D.O. [address] [place] [id number] Normal [facility] BASIC METABOLIC PANELon 09-29 Calcium [Mass/Vol] 8.9 mg/dL Normal 8.6-10.3 [facility] Comment on above: Order Comment: No: D o not add to previous draw Performed By: #### 1 0070, [id number] #### [facility] [address] [place] [address], [facility] Chloride [Moles/Vol] 110 mmol/L High 98-107 [facility] Comment on above: Order Comment: No: D o not add to previous draw Performed By: #### 1 0070, [id number] #### [facility] [address] [place] [address], [place] CO2 [Moles/Vol] 26 mmol/L Normal 21-31 [facility] Comment on above: Order Comment: No: D o not add to previous draw Performed By: #### 1 69, [id number] #### [facility] [address] [place] [address], [place] Creatinine [Mass/Vol] 1.52 mg/dL High 0.70-1.30 [facility] Comment on above: Order Comment: No: D o not add to previous draw Performed By: #### 1 69, 10579 #### [facility] [address] [place] [address], [place] GFR/1.73 sq M predicted among blacks MDRD (S/P/Bld) [Vol rate/Area] 56 ml/min/1.73sq m Abnormal >60 [facility] Comment on above: Order Comment: No: D o not add to previous draw Performed By: #### 1 69, [id number] #### [facility] [address] [place] [address], [place] GFR/1.73 sq M predicted among non-blacks MDRD (S/P/Bld) [Vol rate/Area] 46 ml/min/1.73sq m Abnormal >60 [facility] Comment on above: Order Comment: No: D o not add to previous draw Performed By: #### 1 69, 50869 #### [facility] [address] [place] [address], [place] Glucose [Mass/Vol] 89 mg/dL Normal 70-100 [facility] Comment on above: Order Comment: No: D o not add to previous draw Performed By: #### 1 69, 43040 #### [facility] [address] [place] [address], [place] Potassium [Moles/Vol] 3.9 mmol/L Normal 3.5-5.1 [facility] Comment on above: Order Comment: No: D o not add to previous draw Performed By: #### 1 0, 19409 #### [facility] [address] [place] [address], [facility] Sodium [Moles/Vol] 141 mmol/L Normal 136-145 [facility] Comment on above: Order Comment: No: D o not add to previous draw Performed By: #### 1 69, 90472 #### [facility] [address] Urea nitrogen [Mass/Vol] 19 mg/dL Normal 7-25 [facility] Comment on above: Order Comment: No: D o not add to previous draw Performed By: #### 1 69, 31803 #### [facility] [address] [facility] [place] [address], [facility] CBC W/DIFFon 10-15-2018 ABS BASOPHILS 0.1 10*3/uL Normal 0.0-0.2 [facility] Comment on above: Order Comment: No: D o not add to previous draw Performed By: #### 5 0103 #### [facility] [address] [facility] [place] [address], [facility] ABS IMM GRANS 0.0 10*3/uL Normal 0.0-0.2 [facility] Comment on above: Order Comment: No: D o not add to previous draw Performed By: #### 5 0103 #### [facility] [address] [facility] [place] [address], [facility] ABS NEUTROPHILS 3.5 10*3/uL Normal 1.6-7.6 [facility] Comment on above: Order Comment: No: D o not add to previous draw Performed By: #### 5 3 #### [facility] [address] [facility] [place] [address], [facility] Basophils/100 WBC (Bld) 0.8 % Normal 0.0-1.0 [facility] Comment on above: Order Comment: No: D o not add to previous draw Performed By: #### 5 0103 #### [facility] [address] [place] [address], [facility] Eosinophils (Bld) [#/Vol] 0.3 10*3/uL Normal 0.0-0.5 [facility] Comment on above: Order Comment: No: D o not add to previous draw Performed By: #### 5 0103 #### [facility] [address] [place] [address], [facility] Eosinophils/100 WBC (Bld) 3.9 % Normal 0.0-6.0 [facility] Comment on above: Order Comment: No: D o not add to previous draw Performed By: #### 5 0103 #### [facility] [address] [place] [address], [facility] Erythrocyte distribution width (RBC) [Ratio] 13.5 % Normal 11.5-15.0 [facility] Comment on above: Order Comment: No: D o not add to previous draw Performed By: #### 5 0103 #### [facility] [address] [place] [address], [facility] Hematocrit (Bld) [Volume fraction] 39.7 % Normal 39.0-50.0 [facility] Comment on above: Order Comment: No: D o not add to previous draw Performed By: #### 5 0103 #### [facility] [address] [place] [address], [facility] Hemoglobin (Bld) [Mass/Vol] 13.0 g/dL Normal 13.0-17.0 [facility] Comment on above: Order Comment: No: D o not add to previous draw Performed By: #### 5 0103 #### [facility] [address] [place] [address], [facility] IMMATURE GRANS 0.3 % Normal 0.0-1.0 [facility] Comment on above: Order Comment: No: D o not add to previous draw Performed By: #### 5 0103 #### [facility] [address] [place] [address], [facility] Lymphocytes (Bld) [#/Vol] 1.9 10*3/uL Normal 1.2-4.0 [facility] Comment on above: Order Comment: No: D o not add to previous draw Performed By: #### 5 0103 #### [facility] [address] [place] [address], [facility] Lymphocytes/100 WBC (Bld) 30.1 % Normal 20.0-45.0 [facility] Comment on above: Order Comment: No: D o not add to previous draw Performed By: #### 5 0103 #### [facility] [address] [place] [address], [facility] MCH (RBC) [Entitic mass] 30.0 pg Normal 27.0-33.0 [facility] Comment on above: Order Comment: No: D o not add to previous draw Performed By: #### 5 0103 #### [facility] [address] [place] [address], [facility] MCHC (RBC) [Mass/Vol] 32.7 g/dL Normal 32.0-35.0 [facility] Comment on above: Order Comment: No: D o not add to previous draw Performed By: #### 5 0103 #### [facility] [address] [facility] [place] [address], [facility] MCV (RBC) [Entitic vol] 91.5 fL Normal 82.0-98.0 [facility] Comment on above: Order Comment: No: D o not add to previous draw Performed By: #### 5 0103 #### [facility] [address] [place] [address], [facility] Monocytes (Bld) [#/Vol] 0.7 10*3/uL Normal 0.1-1.0 [facility] Comment on above: Order Comment: No: D o not add to previous draw Performed By: #### 5 0103 #### [facility] [address] [place] [address], [facility] MONOS 10.7 % Normal 5.0-12.0 [facility] Comment on above: Order Comment: No: D o not add to previous draw Performed By: #### 5 0103 #### [facility] [address] [place] [address], [facility] Neutrophils/100 WBC (Bld) 54.2 % Normal 40.0-72.0 [facility] Comment on above: Order Comment: No: D o not add to previous draw Performed By: #### 5 0103 #### [facility] [address] [place] [address], [facility] Nucleated RBC/100 WBC (Bld) [Ratio] 0 % Normal 0-0 [facility] Comment on above: Order Comment: No: D o not add to previous draw Performed By: #### 5 0103 #### [facility] [address] [place] [address], [place] PLAT CNT 164 10*3/uL Normal 150-400 [facility] Comment on above: Order Comment: No: D o not add to previous draw Performed By: #### 5 0103 #### [facility] [address] [place] [address], [facility] RBC (Bld) [#/Vol] 4.34 10*6/uL Normal 4.20-5.70 [facility] Comment on above: Order Comment: No: D o not add to previous draw Performed By: #### 5 0103 #### [facility] [address] [place] [address], [place] WBC (Bld) [#/Vol] 6.38 10*3/uL Normal 4.00-10.60 [facility] Comment on above: Order Comment: No: D o not add to previous draw Performed By: #### 5 0103 #### [facility] [address] [place] [address], [facility] MAGNESIUM BLOODon 10-15-2018 Magnesium [Mass/Vol] 2.0 mg/dL Normal 1.9-2.7 [facility] Comment on above: Order Comment: No: D o not add to previous draw Performed By: #### 1 0070, [id number] #### [facility] [address] [place] [address], [facility] PROTHROMBIN TIMEon 9 INR Coag (PPP) [Relative time] 1.11 {INR} Normal 0.91-1.16 [facility] Comment on above: Order Comment: No: D [...] 1995;[id number]. Performed By: #### 5 6101 #### [facility] [address] [facility]. [address] PT Coag (PPP) [Time] 14.3 s Normal 12.3-14.8 [facility] Comment on above: Order Comment: No: D o not add to previous draw Result Comment: ALL RESULTS MUST BE INTERPRETED WITH RESPECT TO BLOOD DRAWING ARTIFACT OR DILUTION ERROR OF ANTICOAGULANT AT THE TIME OF SAMPLING. Performed By: #### 5 6101 #### [facility] [address] POC GLUCOSE LABon 10-14-2018 Glucose [Mass/Vol] 180 mg/dL High 70-100 [facility] Comment on above: Performed By: #### 8 5499 #### [facility] [address] [facility]. [address] Cardiovascular Lab Reporton 02-25-2018 Cardiovascular Lab Report [facility] Patient Name: Lani Lizama [facility] MR #: [id number] Physician: Pinky Bishop Department of M.D. Medicine Service Date: 02/24/2018 Division of Birthdate: 1950 Cardiology Room #: 3AB [id number] Adult Cardiovascular Services [place] [address] Cardiovascular Laboratory Report FINAL IMPRESSIONS: 1. Severe [...] graft to the posterior descending artery. 4. Pidredfj-bb-rjimtr systemic hypertension. RECOMMENDATIONS: 1. Aspirin 81 mg lifelong. 2. Plavix 75 mg daily for a minimum of 6 months, preferably skilled nursing. 3. Aggressive cardiovascular risk factor modification. 4. Optimization of medical management; high intensity statin therapy as tolerated, we will switch his Toprol-XL to Coreg 25 mg p.o. b.i.d., and angiotensin-converting enzyme inhibitor. 5. Follow up with me in the [facility] in the next 2-3 weeks. 6. Follow up with Dr. Crespo as scheduled. PROCEDURES: Limited femoral angiography, bilateral selective coronary angiography, saphenous vein graft angiography, angiography of the left internal mammary artery graft, limited angiography of the left subclavian, percutaneous balloon angioplasty, and Synergy drug-eluting stent placement to the saphenous vein graft to the obtuse marginal, placement of a 6-Micronesian MYNXGRIP closure device. METHODS: After risks, benefits, and alternatives were explained, written informed consent was obtained. The patient was prepped and draped in usual sterile fashion over both groins. Using 1% lidocaine solution, local infiltration anesthesia was achieved over the right groin. Using a micropuncture kit, access of the right common femoral artery was obtained. A 6-Micronesian 11 cm sheath was exchanged then without [...] to proceed with an interventional procedure. A 6-Micronesian JR4 guide catheter was advanced in and [...] the procedure. All catheters were removed. A 6-Micronesian MYNXGRIP closure device was deployed per protocol [...] [place] vessel. There is evidence of apku-rr-wjkkc collaterals supplying the distal right coronary artery. Limited femoral angiography, this shows mild plaque and anatomy suitable for closure device. INDICATIONS: Unstable angina. Electronically Signed by: Pinky Bishop M.D. 03/06/2018 12:15 P Pinky Bishop M.D. Date Dict: 02/24/2018/01:39 P/Pinky Bishop M.D. Date Trans: 02/25/2018 02:12 Nakul/gatito [id number] cc: Harley Crespo D.O. [address] [place] [address] [address] [facility] [place] [phone] Normal [facility] POC GLUCOSE LABon 02-25-2018 Glucose [Mass/Vol] 150 mg/dL High 70-100 [facility] Comment on above: Performed By: #### 8 5499 #### [facility] [address] [place] [address], [facility] POC GLUCOSE LABon 02-24-2018 Glucose [Mass/Vol] 192 mg/dL High 70-100 [facility] Comment on above: Performed By: #### 8 5499 #### [facility] [address] [place] [address], [place] Glucose [Mass/Vol] 186 mg/dL High 70-100 [facility] Comment on above: Performed By: #### 8 5499 #### [facility] [address] [place] [address], [facility] Vital Signs Date Time Vital Sign Value Performing Clinician Facility 12-01-2024 09:12040 Body height 170.18 cm Harley Ball DO Work Phone: [facility] 12-01-2024 09:12-0400 Body mass index (BMI) [Ratio] 27.1 kg/m2 Harley Ball DO Work Phone: [facility] 12-01-2024 09:120400 Body weight 78.58 kg Harley Ball DO Work Phone: [facility] 12-01-2024 09:12-0400 Diastolic blood pressure 70 mm[Hg] Harley Ball DO Work Phone: [facility] 12-01-2024 09:12-0400 Heart rate 84 /min Harley Ball DO Work Phone: [facility] 12-01-2024 09:12-0400 Respiratory rate 12 /min Harley Ball DO Work Phone: [facility] 12-01-2024 09:12-0400 Systolic blood pressure 115 mm[Hg] Harley Ball DO Work Phone: [facility] 11-10-2024 09:48-0400 Body height 170.18 cm Harley Ball DO Work Phone: [facility] 11-10-2024 09:48-0400 Body mass index (BMI) [Ratio] 28 kg/m2 Harley Ball DO Work Phone: [facility] 11-10-2024 09:48-0400 Body weight 81.3 kg Harley Ball DO Work Phone: [facility] 11-10-2024 09:48-0400 Diastolic blood pressure 64 mm[Hg] Harley Ball DO Work Phone: [facility] 11-10-2024 09:48-0400 Heart rate 78 /min Harley Ball DO Work Phone: [facility] 11-10-2024 09:48-0400 Respiratory rate 18 /min Harley Ball DO Work Phone: [facility] 11-10-2024 09:48-0400 SaO2% (BldA) [Mass fraction] 97 % Harley Ball DO Work Phone: [facility] 11-10-2024 09:48-0400 Systolic blood pressure 122 mm[Hg] Harley Ball DO Work Phone: [facility] 10-27-2024 11:44-0400 Body height 170.18 cm Harley Ball DO Work Phone: [facility] 10-27-2024 11:44-0400 Body mass index (BMI) [Ratio] 27.9 kg/m2 Harley Ball DO Work Phone: [facility] 10-27-2024 11:44-0400 Body weight 80.9 kg Harley Ball DO Work Phone: [facility] 10-27-2024 11:44-0400 Diastolic blood pressure 70 mm[Hg] Harley Ball DO Work Phone: [facility] 10-27-2024 11:44-0400 Heart rate 80 /min Harley Ball DO Work Phone: [facility] 10-27-2024 11:44-0400 Respiratory rate 12 /min Harley Ball DO Work Phone: [facility] 10-27-2024 11:44-0400 SaO2% (BldA) [Mass fraction] 97 % Harley Ball DO Work Phone: [facility] 10-27-2024 11:44-0400 Systolic blood pressure 116 mm[Hg] Harley Ball DO Work Phone: [facility] 09-24-2024 08:32-0400 Body height 170.2 cm Kenneth Tavera DPM Work Phone: [facility] 09-24-2024 08:32-0400 Body mass index (BMI) [Ratio] 26.78 kg/m2 Kenneth Tavera DPM Work Phone: [facility] 09-24-2024 08:32-0400 Body weight 77.56 kg Kenneth Tavera DPM Work Phone: [facility] 09-24-2024 08:32-0400 Respiratory rate 18 /min Kenneth Tavera DPM Work Phone: [facility] 08-25-2024 11:33-0400 Body height 170.18 cm [facility] 08-25-2024 11:33-0400 Body mass index (BMI) [Ratio] 26.9 kg/m2 [facility] 08-25-2024 11:33-0400 Body weight 77.79 kg [facility] 08-25-2024 11:33-0400 Diastolic blood pressure 73 mm[Hg] [facility] 08-25-2024 11:33-0400 Heart rate 77 /min [facility] 08-25-2024 11:33-0400 Respiratory rate 12 /min [facility] 08-25-2024 11:33-0400 SaO2% (BldA) [Mass fraction] 97 % [facility] 08-25-2024 11:33-0400 Systolic blood pressure 126 mm[Hg] [facility] 08-03-2024 09:28-0400 Body height 170.18 cm Harley Ball DO Work Phone: [facility] 08-03-2024 09:28-0400 Body mass index (BMI) [Ratio] 31.8 kg/m2 Harley Ball DO Work Phone: [facility] 08-03-2024 09:28-0400 Body weight 92.4 kg Harley Ball DO Work Phone: [facility] 08-03-2024 09:28-0400 Diastolic blood pressure 83 mm[Hg] Harley Ball DO Work Phone: [facility] 08-03-2024 09:28-0400 Heart rate 77 /min Harley Ball DO Work Phone: [facility] 08-03-2024 09:28-0400 Respiratory rate 18 /min Harley Ball DO Work Phone: [facility] 08-03-2024 09:28-0400 SaO2% (BldA) [Mass fraction] 99 % Harley Ball DO Work Phone: [facility] 08-03-2024 09:28-0400 Systolic blood pressure 143 mm[Hg] Harley Ball DO Work Phone: [facility] 07-27-2024 11:29-0400 Diastolic blood pressure 80 mm[Hg] Harley Ball DO Work Phone: [facility] 07-27-2024 11:29-0400 Heart rate 74 /min Harley Ball DO Work Phone: [facility] 07-27-2024 11:29-0400 Systolic blood pressure 143 mm[Hg] Harley Ball DO Work Phone: [facility] 07-27-2024 11:23-0400 Body height 170.18 cm Harley Ball DO Work Phone: [facility] 07-27-2024 11:23-0400 Body mass index (BMI) [Ratio] 28.8 kg/m2 Harley Ball DO Work Phone: [facility] 07-27-2024 11:23-0400 Body weight 83.57 kg Harley Ball DO Work Phone: [facility] 07-27-2024 11:23-0400 Respiratory rate 12 /min Harley Ball DO Work Phone: [facility] 07-27-2024 11:23-0400 SaO2% (BldA) [Mass fraction] 100 % Harley Ball DO Work Phone: [facility] 07-14-2024 09:43-0400 Body height 170.18 cm Harley Ball DO Work Phone: [facility] 07-14-2024 09:43-0400 Body mass index (BMI) [Ratio] 28.1 kg/m2 Harley Ball DO Work Phone: [facility] 07-14-2024 09:43-0400 Body weight 81.64 kg Harley Ball DO Work Phone: [facility] 07-14-2024 09:43-0400 Diastolic blood pressure 83 mm[Hg] Harley Ball DO Work Phone: [facility] 07-14-2024 09:43-0400 Heart rate 74 /min Harley Ball DO Work Phone: [facility] 07-14-2024 09:43-0400 Respiratory rate 16 /min Harley Ball DO Work Phone: [facility] 07-14-2024 09:43-0400 SaO2% (BldA) [Mass fraction] 99 % Harley Ball DO Work Phone: [facility] 07-14-2024 09:43-0400 Systolic blood pressure 141 mm[Hg] Harley Ball DO Work Phone: [facility] 04-30-2024 09:42-0500 Body height 170.18 cm [facility] 04-30-2024 09:42-0500 Body mass index (BMI) [Ratio] 27.9 kg/m2 [facility] 04-30-2024 09:42-0500 Body weight 80.96 kg [facility] 04-30-2024 09:42-0500 Diastolic blood pressure 80 mm[Hg] [facility] 04-30-2024 09:42-0500 Heart rate 81 /min [facility] 04-30-2024 09:42-0500 Respiratory rate 18 /min [facility] 04-30-2024 09:42-0500 SaO2% (BldA) [Mass fraction] 98 % [facility] 04-30-2024 09:42-0500 Systolic blood pressure 134 mm[Hg] [facility] 04-16-2024 08:24-0500 Body height 170.18 cm [facility] 04-16-2024 08:24-0500 Body mass index (BMI) [Ratio] 28.2 kg/m2 [facility] 04-16-2024 08:24-0500 Body weight 81.76 kg [facility] 04-16-2024 08:24-0500 Diastolic blood pressure 80 mm[Hg] [facility] 04-16-2024 08:24-0500 Heart rate 84 /min [facility] 04-16-2024 08:24-0500 Respiratory rate 12 /min [facility] 04-16-2024 08:24-0500 SaO2% (BldA) [Mass fraction] 97 % [facility] 04-16-2024 08:24-0500 Systolic blood pressure 137 mm[Hg] [facility] 04-02-2024 11:44-0500 Body height 170.2 cm Kenneth Tavera DPM Work Phone: [facility] 04-02-2024 11:44-0500 Body mass index (BMI) [Ratio] 26.78 kg/m2 Kenneth Tavera DPM Work Phone: [facility] 04-02-2024 11:44-0500 Body weight 77.56 kg Kenneth Tavera DPM Work Phone: [facility] 04-02-2024 11:44-0500 Respiratory rate 18 /min Kenneth Liang DPM Work Phone: [facility] 02-24-2024 09:46-0500 Body height 170.18 cm [facility] 02-24-2024 09:46-0500 Body mass index (BMI) [Ratio] 27.1 kg/m2 [facility] 02-24-2024 09:46-0500 Body weight 78.47 kg [facility] 02-24-2024 09:46-0500 Diastolic blood pressure 68 mm[Hg] [facility] 02-24-2024 09:46-0500 Heart rate 80 /min [facility] 02-24-2024 09:46-0500 SaO2% (BldA) [Mass fraction] 97 % [facility] 02-24-2024 09:46-0500 Systolic blood pressure 110 mm[Hg] [facility] 01-23-2024 11:29-0400 Body height 170.2 cm Kenneth Tavera DPM Work Phone: [facility] 01-23-2024 11:29-0400 Body mass index (BMI) [Ratio] 26.78 kg/m2 Kenneth Tavera DPM Work Phone: [facility] 01-23-2024 11:29-0400 Body weight 77.56 kg Kenneth Liang DPM Work Phone: [facility] [facility] 01-23-2024 11:29-0400 Diastolic blood pressure 82 mm[Hg] Kenneth Tavera DPM Work Phone: [facility] 01-23-2024 11:29-0400 Heart rate 88 /min Kenneth Tavera DPM Work Phone: [facility] 01-23-2024 11:29-0400 Systolic blood pressure 128 mm[Hg] Kenneth Tavera DPM Work Phone: [facility] 01-23-2024 09:05-0400 Body height 170.18 cm [facility] 01-23-2024 09:05-0400 Body mass index (BMI) [Ratio] 27.3 kg/m2 [facility] 01-23-2024 09:05-0400 Body weight 79.37 kg [facility] 01-23-2024 09:05-0400 Diastolic blood pressure 71 mm[Hg] [facility] 01-23-2024 09:05-0400 Heart rate 78 /min [facility] 01-23-2024 09:05-0400 Respiratory rate 18 /min [facility] 01-23-2024 09:05-0400 SaO2% (BldA) [Mass fraction] 98 % [facility] 01-23-2024 09:05-0400 Systolic blood pressure 106 mm[Hg] [facility] 01-07-2024 08:26-0400 Body height 170.18 cm [facility] 01-07-2024 08:26-0400 Body mass index (BMI) [Ratio] 27.2 kg/m2 [facility] 01-07-2024 08:26-0400 Body temperature 96.7 [degF] [facility] 01-07-2024 08:26-0400 Body weight 78.98 kg [facility] 01-07-2024 08:26-0400 Diastolic blood pressure 77 mm[Hg] [facility] 01-07-2024 08:26-0400 Heart rate 91 /min [facility] 01-07-2024 08:26-0400 Respiratory rate 16 /min [facility] 01-07-2024 08:26-0400 SaO2% (BldA) [Mass fraction] 97 % [facility] 01-07-2024 08:26-0400 Systolic blood pressure 123 mm[Hg] [facility] 12-12-2023 08:25-0400 Body height 170.18 cm [facility] 12-12-2023 08:25-0400 Body mass index (BMI) [Ratio] 27.4 kg/m2 [facility] 12-12-2023 08:25-0400 Body weight 79.49 kg [facility] 12-12-2023 08:25-0400 Diastolic blood pressure 79 mm[Hg] [facility] 12-12-2023 08:25-0400 Heart rate 80 /min [facility] 12-12-2023 08:25-0400 Respiratory rate 12 /min [facility] 12-12-2023 08:25-0400 Systolic blood pressure 127 mm[Hg] [facility] 10-17-2023 09:21-0400 Body height 170.18 cm [facility] 10-17-2023 09:21-0400 Body mass index (BMI) [Ratio] 28.2 kg/m2 [facility] 10-17-2023 09:21-0400 Body weight 81.81 kg [facility] 10-17-2023 09:21-0400 Diastolic blood pressure 79 mm[Hg] [facility] 10-17-2023 09:21-0400 Heart rate 70 /min [facility] 10-17-2023 09:21-0400 Respiratory rate 18 /min [facility] 10-17-2023 09:21-0400 SaO2% (BldA) [Mass fraction] 97 % [facility] 10-17-2023 09:21-0400 Systolic blood pressure 133 mm[Hg] [facility] 08-12-2023 08:37-0400 Body height 170.18 cm [facility] 08-12-2023 08:37-0400 Body mass index (BMI) [Ratio] 27.6 kg/m2 [facility] 08-12-2023 08:37-0400 Body weight 79.88 kg [facility] 08-12-2023 08:37-0400 Diastolic blood pressure 84 mm[Hg] [facility] 08-12-2023 08:37-0400 Heart rate 82 /min [facility] 08-12-2023 08:37-0400 Respiratory rate 12 /min [facility] 08-12-2023 08:37-0400 Systolic blood pressure 134 mm[Hg] [facility] 07-02-2023 08:54-0400 Body height 170.18 cm [facility] 07-02-2023 08:54-0400 Body mass index (BMI) [Ratio] 27.3 kg/m2 [facility] 07-02-2023 08:54-0400 Body temperature 96.5 [degF] [facility] 07-02-2023 08:54-0400 Body weight 79.09 kg [facility] 07-02-2023 08:54-0400 Diastolic blood pressure 79 mm[Hg] [facility] 07-02-2023 08:54-0400 Heart rate 87 /min [facility] 07-02-2023 08:54-0400 Respiratory rate 18 /min [facility] 07-02-2023 08:54-0400 SaO2% (BldA) [Mass fraction] 96 % [facility] 07-02-2023 08:54-0400 Systolic blood pressure 120 mm[Hg] [facility] 06-18-2023 10:51-0400 Body height 170.18 cm [facility] 06-18-2023 10:51-0400 Body mass index (BMI) [Ratio] 26.6 kg/m2 [facility] 06-18-2023 10:51-0400 Body weight 77.11 kg [facility] 06-18-2023 10:51-0400 Diastolic blood pressure 84 mm[Hg] [facility] 06-18-2023 10:51-0400 Heart rate 95 /min [facility] 06-18-2023 10:51-0400 Respiratory rate 18 /min [facility] 06-18-2023 10:51-0400 SaO2% (BldA) [Mass fraction] 97 % [facility] 06-18-2023 10:51-0400 Systolic blood pressure 127 mm[Hg] [facility] 05-03-2023 09:30-0500 Body height 170.18 cm DO Harley Ball Work Phone: [facility] 05-03-2023 09:30-0500 Body weight 77.29 kg DO Harley Ball Work Phone: [facility] 05-03-2023 09:30-0500 Diastolic blood pressure 85 mm[Hg] DO Harley Ball Work Phone: [facility] 05-03-2023 09:30-0500 Systolic blood pressure 126 mm[Hg] DO Harley Ball Work Phone: [facility] 03-12-2023 11:15-0500 Body height 170.18 cm Tondra Mapus Other [facility] 03-12-2023 11:15-0500 Body mass index (BMI) [Ratio] 27.03 kg/m2 Tondra Mapus Other [facility] Other 03-12-2023 11:15-0500 Body weight 78.29 kg Tondra Mapus Other [facility] 03-12-2023 11:15-0500 Diastolic blood pressure 79 mm[Hg] Tondra Mapus Other [facility] 03-12-2023 11:15-0500 Respiratory rate 18 /min Tondra Mapus Other [employer] Other 03-12-2023 11:15-0500 SaO2% (BldA) [Mass fraction] 98 % Tondra Mapus Other [employer] Other 03-12-2023 11:15-0500 Systolic blood pressure 128 mm[Hg] Tondra Mapus Other [facility] 01-07-2023 10:00-0400 Body height 170.18 cm Kingsley Latisha Other [employer] Other 01-07-2023 10:00-0400 Body mass index (BMI) [Ratio] 27 kg/m2 Kingsley Latisha Other [employer] Other 01-07-2023 10:00-0400 Body temperature 97.7 [degF] Kingsley Latisha Other [employer] Other 01-07-2023 10:00-0400 Body weight 78.2 kg Kingsley Latisha Other [employer] Other 01-07-2023 10:00-0400 Diastolic blood pressure 73 mm[Hg] Kingsley Latisha Other [employer] Other 01-07-2023 10:00-0400 Respiratory rate 16 /min Kingsley Latisha Other [employer] Other 01-07-2023 10:00-0400 SaO2% (BldA) [Mass fraction] 98 % Kingsley Latisha Other [employer] Other 01-07-2023 10:00-0400 Systolic blood pressure 108 mm[Hg] Kingsley Latisha Other [employer] Other 12-31-2022 09:30-0400 Body height 170.18 cm Harley Ball Other [employer] Other 12-31-2022 09:30-0400 Body mass index (BMI) [Ratio] 27.03 kg/m2 Harley Ball Other [employer] Other 12-31-2022 09:30-0400 Body weight 78.29 kg Harley Ball Other [employer] Other 12-31-2022 09:30-0400 Diastolic blood pressure 69 mm[Hg] Harley Ball Other [employer] Other 12-31-2022 09:30-0400 Respiratory rate 16 /min Harley Ball Other [employer] Other 12-31-2022 09:30-0400 Systolic blood pressure 102 mm[Hg] Harley Ball Other [employer] Other 08-31-2022 08:45-0400 Body height 170.18 cm Harley Ball Other [employer] Other 08-31-2022 08:45-0400 Body mass index (BMI) [Ratio] 26.72 kg/m2 Harley Ball Other [employer] Other 08-31-2022 08:45-0400 Body weight 77.38 kg Harley Ball Other [employer] Other 08-31-2022 08:45-0400 Diastolic blood pressure 69 mm[Hg] Harley Ball Other [employer] Other 08-31-2022 08:45-0400 Respiratory rate 12 /min Harley Ball Other [employer] Other 08-31-2022 08:45-0400 Systolic blood pressure 102 mm[Hg] Harley Ball Other [employer] Other 07-02-2022 10:40-0400 Body height 170.18 cm Kingsley Latisha Other [employer] Other 07-02-2022 10:40-0400 Body mass index (BMI) [Ratio] 27.69 kg/m2 Kingsley Latisha Other [employer] Other 07-02-2022 10:40-0400 Body temperature 96.4 [degF] Kingsley Latisha Other [employer] Other 07-02-2022 10:40-0400 Body weight 80.2 kg Kingsley Latisha Other [employer] Other 07-02-2022 10:40-0400 Diastolic blood pressure 71 mm[Hg] Kingsley Latisha Other [employer] Other 07-02-2022 10:40-0400 Respiratory rate 16 /min Kingsley Latisha Other [employer] Other 07-02-2022 10:40-0400 SaO2% (BldA) [Mass fraction] 97 % Kingsley Latisha Other [employer] Other 07-02-2022 10:40-0400 Systolic blood pressure 115 mm[Hg] Kingsley Latisha Other [employer] Other 06-28-2022 09:30-0400 Body height 170.18 cm Harley Ball Other [employer] Other 06-28-2022 09:30-0400 Body mass index (BMI) [Ratio] 27.16 kg/m2 Harley Ball Other [employer] Other 06-28-2022 09:30-0400 Body weight 78.65 kg Harley Ball Other [employer] Other 06-28-2022 09:30-0400 Diastolic blood pressure 66 mm[Hg] Harley Ball Other [employer] Other 06-28-2022 09:30-0400 Respiratory rate 12 /min Harley Ball Other [employer] Other 06-28-2022 09:30-0400 Systolic blood pressure 115 mm[Hg] Harley Ball Other [employer] Other 06-26-2022 08:45-0400 Body height 170.18 cm Tondra Mapus Other [employer] Other 06-26-2022 08:45-0400 Body mass index (BMI) [Ratio] 27.75 kg/m2 Tondra Mapus Other [employer] Other 06-26-2022 08:45-0400 Body weight 80.38 kg Tondra Mapus Other [employer] Other 06-26-2022 08:45-0400 Diastolic blood pressure 61 mm[Hg] Tondra Mapus Other [employer] Other 06-26-2022 08:45-0400 Respiratory rate 16 /min Tondra Mapus Other [employer] Other 06-26-2022 08:45-0400 SaO2% (BldA) [Mass fraction] 96 % Tondra Mapus Other [employer] Other 06-26-2022 08:45-0400 Systolic blood pressure 105 mm[Hg] Tondra Mapus Other [employer] Other 03-20-2022 09:15-0500 Body height 170.18 cm Tondra Mapus Other [employer] Other 03-20-2022 09:15-0500 Body mass index (BMI) [Ratio] 26.15 kg/m2 Tondra Mapus Other [employer] Other 03-20-2022 09:15-0500 Body weight 75.75 kg Tondra Mapus Other [employer] Other 03-20-2022 09:15-0500 Diastolic blood pressure 57 mm[Hg] Tondra Mapus Other [employer] Other 03-20-2022 09:15-0500 Respiratory rate 16 /min Tondra Mapus Other [employer] Other 03-20-2022 09:15-0500 SaO2% (BldA) [Mass fraction] 98 % Tondra Mapus Other [employer] Other 03-20-2022 09:15-0500 Systolic blood pressure 117 mm[Hg] Tondra Mapus Other [employer] Other 01-17-2022 11:45-0400 Body height 170.18 cm DO Harley Ball Work Phone: [facility] 01-17-2022 11:22-0400 Diastolic blood pressure 68 mm[Hg] DO Harley Ball Work Phone: [facility] 01-17-2022 11:22-0400 Heart rate 60 /min DO Harley Ball Work Phone: [facility] 01-17-2022 11:22-0400 Systolic blood pressure 118 mm[Hg] DO Harley Ball Work Phone: [facility] 01-17-2022 11:05-0400 Body temperature 97.4 [degF] DO Harley Ball Work Phone: [facility] 01-17-2022 11:05-0400 Respiratory rate 18 /min DO Harley Ball Work Phone: [facility] 01-17-2022 11:05-0400 SaO2% (BldA) [Mass fraction] 95 % DO Harley Crespo Work Phone: [facility] 01-17-2022 06:58-0400 Body weight 77.9 kg DO Harley Ball Work Phone: [facility] 01-15-2022 15:23-0400 Inhaled oxygen flow rate 2 L/min DO Harley Crespo Work Phone: [facility] 12-18-2021 09:45-0400 Body height 170.18 cm Tondra Mapus Other [employer] Other 12-18-2021 09:45-0400 Body mass index (BMI) [Ratio] 27.25 kg/m2 Tondra Mapus Other [employer] Other 12-18-2021 09:45-0400 Body weight 78.93 kg Tondra Mapus Other [employer] Other 12-18-2021 09:45-0400 Diastolic blood pressure 65 mm[Hg] Tondra Mapus Other [employer] Other 12-18-2021 09:45-0400 Respiratory rate 16 /min Tondra Mapus Other [employer] Other 12-18-2021 09:45-0400 SaO2% (BldA) [Mass fraction] 97 % Tondra Mapus Other [employer] Other 12-18-2021 09:45-0400 Systolic blood pressure 133 mm[Hg] Tondra Mapus Other [employer] Other 09-29-2021 13:13-0400 Blood Pressure Location [facility] 09-29-2021 13:13-0400 Diastolic blood pressure 74 mm[Hg] [facility] [place] 09-29-2021 13:13-0400 Heart rate 60 /min [facility] [place] 09-29-2021 13:13-0400 Respiratory rate 16 /min [facility] 09-29-2021 13:13-0400 Systolic blood pressure 138 mm[Hg] [facility] [place] 07-17-2021 09:45-0400 Body height 170.18 cm Tondra Mapus Other [employer] Other 07-17-2021 09:45-0400 Body mass index (BMI) [Ratio] 30.69 kg/m2 Tondra Mapus Other [employer] Other 07-17-2021 09:45-0400 Body weight 88.91 kg Tondra Mapus Other [employer] Other 07-17-2021 09:45-0400 Diastolic blood pressure 73 mm[Hg] Tondra Mapus Other [employer] Other 07-17-2021 09:45-0400 Respiratory rate 16 /min Tondra Mapus Other [employer] Other 07-17-2021 09:45-0400 SaO2% (BldA) [Mass fraction] 97 % Tondra Mapus Other [employer] Other 07-17-2021 09:45-0400 Systolic blood pressure 163 mm[Hg] Tondra Mapus Other [employer] Other 06-06-2021 10:20-0500 Body height 170.18 cm Kingsley Latisha Other [employer] Other 06-06-2021 10:20-0500 Body mass index (BMI) [Ratio] 30.29 kg/m2 Kingsley Latisha Other [employer] Other 06-06-2021 10:20-0500 Body temperature 96.1 [degF] Kingsley Latisha Other [employer] Other 06-06-2021 10:20-0500 Body weight 87.73 kg Kingsley Latisha Other [employer] Other 06-06-2021 10:20-0500 Diastolic blood pressure 70 mm[Hg] Kingsley Latisha Other [employer] Other 06-06-2021 10:20-0500 Respiratory rate 18 /min Kingsley Ltaisha Other [employer] Other 06-06-2021 10:20-0500 SaO2% (BldA) [Mass fraction] 97 % Kingsley Latisha Other [employer] Other 06-06-2021 10:20-0500 Systolic blood pressure 160 mm[Hg] Kingsley Latisha Other [employer] Other 04-10-2021 09:15-0500 Body height 170.18 cm Tondra Mapus Other [employer] Other 04-10-2021 09:15-0500 Body mass index (BMI) [Ratio] 30.99 kg/m2 Tondra Mapus Other [employer] Other 04-10-2021 09:15-0500 Body weight 89.77 kg Tondra Mapus Other [employer] Other 04-10-2021 09:15-0500 Diastolic blood pressure 64 mm[Hg] Tondra Mapus Other [employer] Other 04-10-2021 09:15-0500 Respiratory rate 18 /min Tondra Mapus Other [employer] Other 04-10-2021 09:15-0500 SaO2% (BldA) [Mass fraction] 98 % Tondra Mapus Other [employer] Other 04-10-2021 09:15-0500 Systolic blood pressure 136 mm[Hg] Tondra Mapus Other [employer] Other 02-14-2021 10:00-0500 Body height 170.18 cm Kingsley Latisha Other [employer] Other 02-14-2021 10:00-0500 Body mass index (BMI) [Ratio] 30.98 kg/m2 Kingsley Latisha Other [employer] Other 02-14-2021 10:00-0500 Body temperature 96 [degF] Kingsley Latisha Other [employer] Other 02-14-2021 10:00-0500 Body weight 89.72 kg Kingsley Latisha Other [employer] Other 02-14-2021 10:00-0500 Diastolic blood pressure 60 mm[Hg] Kingsley Latisha Other [employer] Other 02-14-2021 10:00-0500 Respiratory rate 16 /min Kingsley Latisha Other [employer] Other 02-14-2021 10:00-0500 SaO2% (BldA) [Mass fraction] 97 % Kingsley Latisha Other [employer] Other 02-14-2021 10:00-0500 Systolic blood pressure 130 mm[Hg] Kingsley Latisha Other [employer] Other 01-03-2021 10:15-0400 Body height 170.18 cm Tondra Mapus Other [employer] Other 01-03-2021 10:15-0400 Body mass index (BMI) [Ratio] 31.01 kg/m2 Tondra Mapus Other [employer] Other 01-03-2021 10:15-0400 Body weight 89.81 kg Tondra Mapus Other [employer] Other 01-03-2021 10:15-0400 Diastolic blood pressure 67 mm[Hg] Tondra Mapus Other [employer] Other 01-03-2021 10:15-0400 Respiratory rate 16 /min Tondra Mapus Other [employer] Other 01-03-2021 10:15-0400 SaO2% (BldA) [Mass fraction] 99 % Viky Kwong Other [employer] Other 01-03-2021 10:15-0400 Systolic blood pressure 151 mm[Hg] Viky Kwong Other [employer] Other Encounters Encounter Date Encounter Type Care Provider Facility Start: 12-18-2024 ambulatory Jason LARKIN Facili ty:[facility] Start: 12-01-2024 End: 12-01-2024 ambulatory Harley Ball DO Work Phone: [facility] Work Phone: Start: 12-01-2024 End: 12-01-2024 Patient encounter procedure Harley Crespo DO -[facility] Work Phone: Start: 11-23-2024 End: 11-23-2024 ambulatory Jason LARKIN Facility:[facility] Start: 11-23-2024 End: 11-23-2024 Patient encounter procedure Jason LARKIN [facility] Start: 11-19-2024 ambulatory EMEKA NICHOLAS [facility] Start: 11-13-2024 End: 11-13-2024 ambulatory Jason LARKIN Facility:[facility] Start: 11-13-2024 End: 11-13-2024 Patient encounter procedure Jason LARKIN [facility] Start: 11-11-2024 End: 11-11-2024 ambulatory OBI JD [facility] Start: 11-10-2024 End: 11-10-2024 ambulatory Harley Ball DO Work Phone: [facility] Work Phone: Start: 11-10-2024 End: 11-10-2024 Patient encounter procedure Viky Kwong RN [facility] Work Phone: Start: 11-09-2024 Non-patient / Non-visit Kingsley Woods MD -[facility] Work Phone: Start: 10-27-2024 End: 10-27-2024 ambulatory Harley Crespo DO Work Phone: [facility] Work Phone: Start: 10-27-2024 End: 10-27-2024 Patient encounter procedure Harley Crespo DO -[facility] Work Phone: Start: 10-26-2024 Non-patient / Non-visit Jackson howell MD -[facility] Work Phone: Start: 10-26-2024 End: 10-26-2024 ambulatory Harley Crespo DO Work Phone: [facility] Work Phone: Start: 10-26-2024 End: 10-26-2024 Departed Referred Jackson Mcmanus MD -[facility] Start: 10-21-2024 ambulatory [facility] Start: 10-15-2024 Non-patient / Non-visit Codi Abdi CMA -[facility] Work Phone: Start: 10-14-2024 ambulatory [facility] Start: 10-14-2024 Non-patient / Non-visit Meghan cyr MD -[facility] Work Phone: Start: 10-13-2024 Non-patient / Non-visit Meghan cyr MD -[facility] Work Phone: Start: 10-12-2024 Non-patient / Non-visit Meghan cyr MD -[facility] Work Phone: Start: 10-11-2024 End: 10-11-2024 ambulatory Lyssa Alcantar Facility:[facility] Start: 10-11-2024 Non-patient / Non-visit Asa Alcantar -[facility] Work Phone: Start: 10-08-2024 End: 10-08-2024 [facility] Start[facility] 10-06-2024 ambulatory [facility] Start: 09-29-2024 End: 09-29-2024 ambulatory OBI [facility] Start: 09-26-2024 Non-patient / Non-visit Outside Prov ider -[facility] Work Phone: Start: 09-25-2024 End: 09-25-2024 ambulatory [facility] Start: 09-24-2024 End: 09-24-2024 Bamboo flowsheet [...] ambulatory KENNETH TAVERA Not Available Start: 09-21-2024 Non-patient / Non-visit Jackson howell MD -[facility] Work Phone: Start: 09-21-2024 End: 09-21-2024 ambulatory NON STAFF Facility:[facility] Start: 09-21-2024 End: 09-21-2024 Departed Referred NON STAFF -[facility] Start: 08-28-2024 End: 08-28-2024 ambulatory OBI [facility] Start: 08-28-2024 End: [facility] Start: 08-27-2024 End: 08-27-2024 ambulatory Harley Crespo Facility:[facility] Start: 08-27-2024 Non-patient / Non-visit [facility] Work Phone: Start: 08-25-2024 End: 08-25-2024 ambulatory [facility] Work Phone: Start: 08-25-2024 End: 08-25-2024 Patient encounter procedure [facility] Work Phone: Start: 08-21-2024 Non-patient / Non-visit [facility] Work Phone: Start: 08-20-2024 End: 08-20-2024 ambulatory EHAB VIJAY [facility] Start: 08-14-2024 Evaluation and management of inpatient [facility] Start: 08-13-2024 [facility] Start: 08-13-2024 End: 08-14-2024 Evaluation and management of inpatient KATARZYNA YOUNGBLOOD [facility] Start: 08-13-2024 Non-patient / Non-visit [facility] Work Phone: Start: 08-04-2024 End: 08-04-2024 ambulatory OBI [facility] Start: 08-04-2024 End: 08-04-2024 ambulatory Jason LARKIN Facility:[facility] Start: 08-04-2024 End: 08-04-2024 Patient encounter procedure Jason LARKIN [facility] Start: 08-03-2024 End: 08-03-2024 ambulatory Jasongenia LARKIN Facility:[facility] Start: 08-03-2024 End: 08-03-2024 Lab Drop off Jason LARKIN [facility] Start: 08-03-2024 End: 08-03-2024 ambulatory HARLEY CRESPO Facility:[facility] Start: 08-03-2024 End: 08-03-2024 ambulatory Harley Ball DO Work Phone: [facility] Work Phone: Start: 08-03-2024 End: 08-03-2024 Patient encounter procedure Harley Ball DO [facility] Work Phone: Start: 07-27-2024 End: 07-27-2024 ambulatory Harley Ball DO Work Phone: [facility] Work Phone: Start: 07-27-2024 End: 07-27-2024 Patient encounter procedure Harley Ball DO Work Phone: [facility] Work Phone: Start: 07-17-2024 ambulatory EMEKA CRISTOPHER [facility] Start: 07-16-2024 Non-patient / Non-visit Benjam in Ball DO Work Phone: [facility] Work Phone: Start: 07-15-2024 ambulatory Jason LARKIN Facility :[facility] Start: 07-15-2024 Non-patient / Non-visit Benjam in Ball DO [facility] Work Phone: Start: 07-14-2024 End: 07-14-2024 ambulatory Harley Ball DO Work Phone: [facility] Work Phone: Start: 07-14-2024 End: 07-14-2024 Patient encounter procedure Harley Ball DO Work Phone: [facility] Work Phone: Start: 07-07-2024 End: 07-07-2024 ambulatory Kingsley Latisha Facility:[facility] Start: 07-07-2024 Non-patient / Non-visit Benjam in Ball DO Work Phone: [facility] Work Phone: Start: 06-22-2024 ambulatory [facility] Start: 06-18-2024 End: 06-18-2024 ambulatory KENNETH TAVERA Not Available Start: 06-10-2024 Non-patient / Non-visit Benjam in Ball DO Work Phone: [facility] Work Phone: Start: 05-28-2024 End: 05-28-2024 Departed Referred Harley Ball DO Work Phone: [facility] [facility] Work Phone: Start: 05-28-2024 End: 05-28-2024 Patient encounter procedure Harley Ball DO Work Phone: [facility]az[facility]Ugw[facility]Qkndgl[facility] Testing Work Phone: Start: 05-28-2024 End: 05-28-2024 ambulatory Harley Ball DO Work Phone: [facility] Work Phone: Start: 05-26-2024 End: 05-26-2024 ambulatory [facility] Start: 05-18-2024 ambulatory [facility] Start: 05-05-2024 Non-patient / Non-visit Benjam in Ball DO Work Phone: [facility] Work Phone: Start: 04-30-2024 End: 04-30-2024 ambulatory [facility] Work Phone: Start: 04-30-2024 End: 04-30-2024 Patient encounter procedure [facility] Work Phone: Start: 04-21-2024 ambulatory [facility] Start: 04-21-2024 Encounter for preprocedural cardiovascular examination [facility] Start: 04-16-2024 End: 04-16-2024 Patient encounter procedure [facility] Work Phone: Start: 04-02-2024 End: 04-02-2024 Bamboo [...] polyneuropathy, without long-term current use of insulin ([facility]) (Primary Dx); Pain due to onychomycosis of toenails of both feet Start: 04-02-2024 End: 04-02-2024 ambulatory KENNETH TAVERA Not Available Start: 03-26-2024 ambulatory [facility] Start: 03-10-2024 End: 03-10-2024 ambulatory [facility] Start: 03-06-2024 ambulatory [facility] Start: 02-24-2024 End: 02-24-2024 Patient encounter procedure [facility] Work Phone: Start: 02-20-2024 ambulatory [facility] Start: 02-18-2024 Non-patient / Non-visit [facility] Work Phone: Start: 02-18-2024 Non-patient / Non-visit [facility] Work Phone: Start: 02-13-2024 Evaluation and management of inpatient YFN YOST [facility] Start: 02-13-2024 Evaluation and management of inpatient [facility] Start: 02-13-2024 Evaluation and management of inpatient [facility] Start: 02-13-2024 End: 02-14-2024 Evaluation and management of inpatient HEMALATHA LAGOS [facility] Start: 02-12-2024 Non-patient / Non-visit [facility] Work Phone: Start: 02-12-2024 Non-patient / Non-visit [facility] Work Phone: Start: 01-23-2024 [...] polyneuropathy, without long-term current use of insulin ([facility]); Pain due to onychomycosis of toenails of both feet Start: 01-23-2024 End: 01-23-2024 ambulatory KENNETH TAVERA Not Available Start: 01-23-2024 End: 01-23-2024 ambulatory [facility] Work Phone: Start: 01-23-2024 End: 01-23-2024 Patient encounter procedure [facility] Work Phone: Start: 01-21-2024 ambulatory [facility] Start: 01-16-2024 ambulatory [facility] Start: 01-10-2024 ambulatory [facility] Start: 01-09-2024 ambulatory [facility] Start: 01-07-2024 End: 01-07-2024 ambulatory [facility] Work Phone: Start: 01-07-2024 End: 01-07-2024 Patient encounter procedure [facility] Nephrology [place] Work Phone: Start: 12-30-2023 Non-patient / Non-visit [facility] Work Phone: Start: 12-12-2023 End: 12-12-2023 ambulatory [facility] Work Phone: Start: 12-12-2023 End: 12-12-2023 Patient encounter procedure [facility] Work Phone: Start: 11-28-2023 ambulatory [facility] Start: 11-07-2023 End: 11-07-2023 ambulatory KENNETH TAVERA Not Available Start: 10-17-2023 End: 10-17-2023 ambulatory [facility] Work Phone: Start: 10-17-2023 End: 10-17-2023 Patient encounter procedure [facility] Work Phone: Start: 09-26-2023 Non-patient / Non-visit [facility] Work Phone: Start: 09-26-2023 Non-patient / Non-visit [facility] Work Phone: Start: 08-27-2023 Non-patient / Non-visit [facility] Work Phone: Start: 08-12-2023 End: 08-12-2023 ambulatory [facility] Work Phone: Start: 08-12-2023 End: 08-12-2023 Patient encounter procedure [facility] Work Phone: Start: 07-02-2023 End: 07-02-2023 ambulatory [facility] Work Phone: Start: 07-02-2023 End: 07-02-2023 Patient encounter procedure [facility] Nephrology Work Phone: Start: 06-24-2023 Non-patient / Non-visit [facility] Work Phone: Start: 06-18-2023 End: 06-18-2023 ambulatory [facility] Work Phone: Start: 06-18-2023 End: 06-18-2023 Patient encounter procedure [facility] Work Phone: Start: 06-13-2023 Non-patient / Non-visit [facility] Work Phone: Start: 05-03-2023 End: 05-03-2023 Patient encounter procedure DO Harley Crespo Work Phone: [facility]- Start: 04-30-2023 End: 04-30-2023 ambulatory Kingsley Latisha Other [employer] Other Start: 04-30-2023 Telephone encounter Kingsley Latisha [facility] Start: 04-23-2023 End: 04-23-2023 ambulatory Tondra Mapus Other [employer] Other Start: 04-23-2023 Telephone encounter Tondra Mapus [facility] Start: 03-12-2023 (DM) Diabetes Tondra Mapus [facility] Start: 03-12-2023 End: 03-12-2023 ambulatory DO Harley Crespo Work Phone: [employer] Other Start: 03-12-2023 End: 03-12-2023 Discharged Recurring DO Harley Crespo Work Phone: [facility] Work Phone: Start: 03-12-2023 End: 03-12-2023 Patient encounter procedure DO Harley Crespo Work Phone: [facility] Work Phone: Start: 02-12-2023 End: 02-12-2023 ambulatory Harley Crespo Other [employer] Other Start: 02-12-2023 Telephone encounter Harley Crespo [facility] Start: 02-07-2023 End: 02-07-2023 ambulatory Harley Crespo Other [employer] Other Start: 02-07-2023 Telephone encounter Harley Crespo [facility] Start: 02-06-2023 End: 02-06-2023 ambulatory Tondra Mapus Other [employer] Other Start: 02-06-2023 Telephone encounter Tondra Mapus [facility] Start: 01-29-2023 End: 01-29-2023 ambulatory Harley Crespo Other [employer] Other Start: 01-29-2023 Telephone encounter Harley Crespo FP [facility] Start: 01-17-2023 End: 01-17-2023 ambulatory Tondra Mapus Other [employer] Other Start: 01-17-2023 Telephone encounter Tondra Mapus [facility] Start: 01-07-2023 End: 01-07-2023 ambulatory Harley Crespo Other [employer] Other Start: 01-07-2023 Office outpatient vi sit 25 minutes Kingsley Latisha [facility] Start: 01-07-2023 Telephone encounter Harley Crespo FP [facility] Start: 01-04-2023 End: 01-04-2023 ambulatory Kingsley Latisha Other [employer] Other Start: 01-04-2023 Telephone encounter Kingsley Latisha [facility] Start: 01-01-2023 End: 01-01-2023 ambulatory Kingsley Latisha Other [employer] Other Start: 01-01-2023 Telephone encounter Kingsley Latisha [facility] Start: 12-31-2022 End: 12-31-2022 ambulatory Harley Crespo Other [employer] Other Start: 12-31-2022 Office outpatient vi sit 25 minutes Ahrley Cherie [facility] Start: 12-31-2022 Telephone encounter Harley Crespo FP [facility] Start: 12-13-2022 End: 12-13-2022 ambulatory Denita Mihaela Other [employer] Other Start: 12-13-2022 Nursing evaluation o f patient and report Denitaclarita Chairez [facility] Start: 11-23-2022 End: 11-23-2022 ambulatory Tondra Mapus Other [employer] Other Start: 11-23-2022 Telephone encounter Tondra Mapus [facility] Start: 10-12-2022 End: 10-12-2022 ambulatory Tondra Mapus Other [employer] Other Start: 10-12-2022 Telephone encounter Tondra Mapus [facility] Start: 10-09-2022 End: 10-09-2022 ambulatory Harley Crespo Other [employer] Other Start: 10-09-2022 Telephone encounter Harley Ball FP [facility] Start: 10-01-2022 End: 10-01-2022 ambulatory Harley Ball Other [employer] Other Start: 10-01-2022 Telephone encounter Harley Ball FP [facility] Start: 09-27-2022 End: 09-27-2022 ambulatory Kingsley Latisha Other [employer] Other Start: 09-27-2022 Telephone encounter Kingsley Latisha [facility] Start: 09-26-2022 End: 09-26-2022 ambulatory Harley Ball Other [employer] Other Start: 09-26-2022 Telephone encounter Harley Ball FP [facility] Start: 09-19-2022 End: 09-19-2022 ambulatory Kingsley Latisha Other [employer] Other Start: 09-19-2022 Telephone encounter Kingsley Latisha [facility] Start: 09-12-2022 End: 09-12-2022 ambulatory Harley Ball Other [employer] Other Start: 09-12-2022 Telephone encounter Harley Ball FP [facility] Start: 09-03-2022 End: 09-03-2022 ambulatory Harley Ball Other [employer] Other Start: 09-03-2022 Telephone encounter Harley Ball FP [facility] Start: 08-31-2022 End: 08-31-2022 ambulatory Harley Ball Other [employer] Other Start: 08-31-2022 Office outpatient vi sit 25 minutes Harley Ball [facility] Start: 08-10-2022 End: 08-10-2022 ambulatory Harley Ball Other [employer] Other Start: 08-10-2022 Telephone encounter Harley Crespo FP [facility] Start: 08-09-2022 End: 08-10-[address] HARLEY CRESPO [facility] [employer] Other Start: 08-09-2022 Telephone encounter Kingsley Latisha [facility] Start: 07-02-2022 End: 07-02-2022 ambulatory Kingsley Latisha Other [employer] Other Start: 07-02-2022 Office outpatient vi sit 25 minutes Kingsley Latisha [facility] Start: 06-28-2022 End: 06-28-2022 ambulatory Harley Crespo Other [employer] Other Start: 06-28-2022 Patient encounter procedure Harley Crsepo [facility] Start: 06-26-2022 (DM) Diabetes Tondra Desireeus [facility] Start: 06-26-2022 End: 06-26-2022 ambulatory Tondra Mapus Other [employer] Other Start: 06-25-2022 End: 06-26-2022 ambulatory KINGSLEY LATISHA Facility:[facility] Start: 06-18-2022 End: 06-19-2022 ambulatory TONDRA MAPUS Facility:[facility] Start: 06-05-2022 End: 06-06-[address] HARLEY CRESPO Facility:[facility] Start: 05-26-2022 End: 05-26-2022 ambulatory Harley Crespo Other [employer] Other Start: 05-26-2022 Telephone encounter Harley HERRMANN [facility] Start: 05-25-2022 End: 05-25-2022 ambulatory Tondra Mapus Other [employer] Other Start: 05-25-2022 Telephone encounter Tondra Mapus [facility] Start: 05-03-2022 End: 05-04-[address] PINKY BISHOP Facility:[facility] Start: 04-18-2022 End: 04-19-[address] PINKY BISHOP Facility:[facility] Start: 03-22-2022 End: 03-23-[address] HIGINIO FLANAGAN Facility:[facility] Start: 03-20-2022 (DM) Diabetes Tondra Mapus [facility] Start: 03-20-2022 End: 03-20-2022 ambulatory Tondra Mapus Other [employer] Other Start: 03-12-2022 End: 03-13-2022 Evaluation and management of inpatient DR PARUL CHU Facility:[facility] Start: 03-09-2022 End: 03-10-[address] SHANNON LANDIS Facility:[facility] Start: 03-02-2022 End: 03-03-[address] HARLEY CRESPO Facility:[facility] Start: 02-19-2022 End: 02-19-2022 ambulatory Tondra Mapus Other [employer] Other Start: 02-19-2022 Telephone encounter Tondra Mapus [facility] Start: 02-08-2022 End: 02-08-2022 ambulatory Tondra Mapus Other [employer] Other Start: 02-08-2022 Telephone encounter Tondra Mapus [facility] Start: 01-15-2022 End: 01-17-2022 Evaluation and management of inpatient DO Harley Crespo Work Phone: [facility] Start: 01-15-2022 End: 01-15-[address] HARLEY CRESPO Facility:[facility] Start: 12-18-2021 Registered Recurring DO Zamudio in [place] Work Phone: [facility] Start: 12-18-2021 (DM) Diabetes Tondra Mapus [facility] Start: 12-18-2021 End: 12-18-2021 ambulatory Tondra Mapus Other [employer] Other Start: 12-08-2021 End: 12-09-[address] HARLEY CRESPO Facility:[facility] Start: 11-30-2021 End: 12-01-2021 ambulatory KINGSLEY LATISHA Facility:[facility] Start: 11-24-2021 End: 11-25-[address] HARLEY CRESPO Facility:[facility] Start: 11-16-2021 End: 11-16-2021 ambulatory Tondra Mapus Other [employer] Other Start: 11-16-2021 Telephone encounter Tondra Mapus [facility] Start: 2021 End: 2021 ambulatory Tondra Mapus Other [employer] Other Start: 2021 Telephone encounter Tondra Mapus [facility] Start: 10-31-2021 End: 10-31-2021 ambulatory Tondra Mapus Other [employer] Other Start: 10-31-2021 Telephone encounter Tondra Mapus [facility] Start: 10-27-2021 End: 10-27-2021 ambulatory [...] 07-24-2021 End: 07-24-2021 ambulatory Tondra Mapus Other [employer] Other Start: 07-24-2021 Telephone encounter Tondra Mapus [facility] Start: 07-17-2021 (DM) Diabetes Tondra Mapus [facility] Start: 07-17-2021 End: 07-17-2021 ambulatory Tondra Mapus Other [employer] Other Start: 06-19-2021 End: 06-19-2021 ambulatory Shannon Escobar Other [employer] Other Start: 06-19-2021 Telephone encounter Shannon Escobar [facility] Start: 06-06-2021 End: 06-06-2021 ambulatory Kingsley Latisha Other [employer] Other Start: 06-06-2021 Office outpatient vi sit 25 minutes Kingsley Latisha [facility] Start: 05-22-2021 End: 05-22-2021 ambulatory Tondra Mapus Other [employer] Other Start: 05-22-2021 Telephone encounter Tondra Mapus [facility] Start: 05-16-2021 End: 05-16-2021 ambulatory Tondra Mapus Other [employer] Other Start: 05-16-2021 Telephone encounter Tondra Mapus [facility] Start: 04-10-2021 (DM) Diabetes Tondra Mapus [facility] Start: 04-10-2021 End: 04-10-2021 ambulatory Tondra Mapus Other [employer] Other Start: 04-10-2021 Telephone encounter Tondra Mapus [facility] Start: 02-14-2021 End: 02-14-2021 ambulatory Kingsley Latisha Other [employer] Other Start: 02-14-2021 Patient encounter procedure Kingsley Latisha [facility] Start: 02-14-2021 Telephone encounter Viky Kwong [facility] Start: 01-03-2021 (DM) Diabetes Viky Kwong [facility] Start: 10-14-2018 End: 10-15-2018 Patient encounter procedure [facility] Start: 02-24-2018 End: 02-25-2018 Evaluation and management of inpatient [facility] Facility[facility] Procedures Date Procedure Procedure Detail Performing Clinician Start: 10-26-2024 Urine culture Harley Crespo DO Work Phone: Start: 09-21-2024 Urine culture Harley Crespo DO Work Phone: Start: 03-11-2022 Assistance with Respiratory Ventilation, Less [...] disease Jason LARKIN Pacemaker care management Jaron dupontkayden LARKIN Percutaneous coronary intervention Gagan DAVID Comment on above: stent/vein graft Plan of Treatment Date Care Activity Detail Author Start: 07-11-2031 Screening for malign ant neoplasm of colon [facility] Start: 10-26-2024 Bacteria identified in Urine by Culture Urine Culture [facility] Start: 10-26-2024 End: 10-26-2024 Urine culture [facility] Start: 10-11-2024 Urine culture [facility] Start: 09-24-2024 End: 09-24-2024 Patient encounter procedure 09/24/2024 8:40 AM EDT Office Visit [facility] [address] [facility] [address] [place] [address] Kenneth Tavera DPM [address] [id number] Diabetes 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, without long-term current use of insulin ([facility]) (Primary Dx); Pain due to onychomycosis of toenails of both feet; Xerosis cutis [facility] Comment on above: 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, without long-term current use of insulin ([facility]) (Primary Dx); Pain due to onychomycosis of toenails of both feet; Xerosis cutis Start: 08-27-2024 Urine culture [facility] Start: 07-27-2024 Patient referral [facility] Work Phone: Start: 07-14-2024 Patient referral [facility] Work Phone: Start: 07-07-2024 Urine culture [facility] Start: 06-11-2024 End: 06-11-2024 Patient encounter procedure 06/11/2024 11:50 AM EDT Office Visit [facility] [address] [id number] Kenneth Tavera DPM [address] [address] [facility] Start: 04-02-2024 End: 04-02-2024 Patient encounter procedure [facility] Comment on above: 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, without long-term current use of insulin ([facility]) (Primary Dx); Pain due to onychomycosis of toenails of both feet Start: 01-23-2024 End: 01-23-2024 Patient encounter procedure 01/23/2024 11:30 AM EDT Office Visit [facility] [address] [facility] [address] [place] [phone] Kenneth Tavera DPM [address] [address] Diabetes 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, without long-term current use of insulin (CMS/HCC) (Primary Dx); Pain due to onychomycosis of toenails of both feet [facility] Comment on above: 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, without long-term current use of insulin (CMS/HCC) (Primary Dx); Pain due to onychomycosis of toenails of both feet Start: 10-26-2023 DIABETES SCREEN DIABETES SCREEN [facility] Start: 10-17-2023 Patient referral [facility] Work Phone: Start: 08-16-2023 Screening for malign ant neoplasm of colon FIT-DNA [facility] Start: 01-17-2022 [facility] Start: 01-17-2022 Radionuclide myocard ial perfusion stress study NM rachel perf SPECT rest & str [facility] Start: 01-17-2022 Referral to cardiac rehabilitation program [facility] Start: 01-16-2022 Hospital admission [facility] Start: 01-15-2022 Hospital admission [facility] Start: 11-30-2021 Influenza vaccination INFLUENZA (#1) [facility] Start: 10-24-2021 End: 12-24-2021 CBC W Auto Differential panel - Blood CBC + DIFF Lab Routine Monoclonal gammopathy Expected: 10/24/2021, Expires: 12/24/2021 [facility] Work Phone: Comment on above: Expected: 10/24/2021 , Expires: 12/24/2021 Start: 04-25-2021 Adult depression screening assessment DEPRESSION SCREENING [facility] Start: 04-01-2021 ADVANCE DIRECTIVE DISCUSSION ADVANCE DIRECTIVE DISCUSSION [facility] Start: 11-21-2020 COVID-19 VACCINE (3 - Booster for Pfizer series) COVID-19 VACCINE (3 - Booster for Pfizer series) [facility] Start: 11-07-2001 SHINGRIX VACCINE (1 of 2) SHINGRIX VACCINE (1 of 2) [facility] Start: 11-07-1996 COLOGUARD (FIT-DNA) COLOGUARD (FIT-D NA) [facility] Start: 11-07-1996 Colonoscopy COLONOSCOPY [facility] Start: 11-07-1996 COLORECTAL CANCER SCREENING COLORECTAL CANCER SCREENING [facility] Start: 11-07-[address] [facility] Start: 11-07-1996 FECAL OCCULT BLOOD FECAL OCCULT BLOO D [facility] Start: 11-07-1996 SIGMOIDOSCOPY [facility] Start: 11-07-1986 LIPID SCREEN LIPID SCREEN [facility] Start: 11-07-1970 Urine microalbumin profile DTAP,TDAP,TD (1 - Tdap) [facility] Start: 11-07-1969 HEPATITIS C SCREENING HEPATITIS C SC REENING [facility] Start: 1950 ABDOMINAL AORTIC ANEURYSM SCREENING ABDOMINAL AORTIC ANEURYSM SCREENING [facility] Start: 1950 Screening for malign ant neoplasm of colon [facility] Comprehensive metabo lic 1999 panel - Serum or Plasma [facility] Comprehensive metabo lic 1999 panel - Serum or Plasma [facility] CT Abdomen and Pelvi s WO contrast [facility] CT Abdomen and Pelvi s WO contrast [facility] Patient Education [facility] Work Phone: Patient referral [facility] Work Phone: Renal function 1999 panel - Serum or Plasma [facility] Renal function 1999 panel - Serum or Plasma [facility] Renal function 2000 panel - Serum or Plasma [facility] Urine culture [facility] Urine culture [facility] Immunizations Immunization Date Immunization Notes Care Provider Fa cilielsa 12-01-2024 influenza, high dose seasonal, preservative-free Harley Crespo DO Work Phone: [facility] 12-12-2023 influenza virus vaccine, unspecified formulation Jason LARKIN [facility] 12-12-2023 influenza, high dose seasonal, preservative-free [facility] 12-13-2022 influenza, high dose seasonal, preservative-free Denita Mihaela Other [employer] Other 12-13-2022 influenza virus vaccine, unspecified formulation DO Harley Crespo Work Phone: [facility] 12-15-2021 Influenza vaccine, quadrivalent, adjuvanted Harley Ball DO Work Phone: [facility] 12-15-2021 influenza virus vaccine, unspecified formulation DO Harley Ball Work Phone: [facility] 12-15-2021 influenza, high dose seasonal, preservative-free Harley Crespo Other [employer] Other 02-21-2021 COVID-19 mRNA, Comirnaty (Pfizer) DO Harley Crespo Work Phone: [facility] 06-21-2020 COVID-19 Vaccine Pfi zer - Documentation Purposes Only Viky Kwong Other [facility] 05-30-2020 COVID-19 Vaccine Pfi zer - Documentation Purposes Only Viky Kwong Other [facility] 01-17-2018 influenza virus vaccine, unspecified formulation Jason LARKIN [facility] 01-17-2018 pneumococcal polysaccharide vaccine, 23 valent Abdon Walker MD Work Phone: [facility] 01-17-2018 Seasonal trivalent influenza vaccine, adjuvanted, preservative free Abdon Walker MD Work Phone: [facility] 01-16-2017 influenza virus vaccine, unspecified formulation Jason LARKIN [facility] 01-16-2017 influenza, high dose seasonal, preservative-free Abdon Walker MD Work Phone: [facility] 11-30-2016 influenza virus vaccine, unspecified formulation Jason LARKIN [facility] 11-30-2016 influenza, injectabl e, quadrivalent, preservative free Abdon Walker MD Work Phone: [facility] 11-14-2016 pneumococcal conjuga te vaccine, 13 valent Abdon Walker MD Work Phone: [facility] 04-02-2016 pneumococcal polysaccharide vaccine, 23 valent Tondra Mapus Other [facility] 01-23-2012 influenza virus vaccine, unspecified formulation Jason LARKIN [facility] 01-23-2012 influenza, seasonal, injectable Abdon Walker MD Work Phone: [facility] 12-13-2010 influenza virus vaccine, unspecified formulation Jason LARKIN [facility] 12-13-2010 influenza, seasonal, injectable Abdon Walker MD Work Phone: [facility] 01-27-2009 novel [id number], preservative-free, injectable Abdon Walker MD Work Phone: [facility] 01-19-2008 influenza virus vaccine, whole virus Abdon Walker MD Work Phone: [facility] 01-19-2008 influenza, whole Jason EZ HERNANDES [facility] Payers Date Payer Category Payer Self-pay [id number] 2021 Unknown [id number] 2021 Private Health Insurance [id number]. [id number] 2019 Unknown MMO MMO MEDICARE SUPPLEMENT [id number] 2019-Present [phone] [address] [place] [address] Indemnity [id number]. [id number] 2016 Medicare MEDICARE MEDICAR E A AND B [id number] 2016-Present [phone] [address] [address] [place] [address] Medicare [id number]. [id number] 2016 Medicare [id number]. 1.13.693.2. [id number] 1959 Medicare [id number] 1959 Unknown [id number] 2.16.840.1.844193.19 1951 Unknown [id number] 2.16.840.1.417513.3.579.2. 647 1951 Unknown [id number] 2.16.840.1.469692.3.579.2. 647 1951 Unknown [id number] 2.16.840.1.866105.3.579.2. 593 1951 Unknown [id number] 2.16.840.1.485017.3.579.2. 593 1951 Unknown [id number] 2.16.840.1.742065.3.579.2. 593 1951 Unknown [id number] 2.16.840.1.429658.3.579.2. 593 1951 Unknown [id number] 2.16.840.1.938851.3.579.2. 593 1951 Unknown [id number] 2.16.840.1.348043.3.579.2. 593 1951 Unknown [id number] 2.16.840.1.841824.3.579.2. 593 1951 Unknown [id number] 2.16.840.1.242517.3.579.2. 593 1951 Unknown [id number] 2.16.840.1.507343.3.579.2. 593 1951 Unknown [id number] 2.16.840.1.772037.3.579.2. 593 1951 Unknown [id number] 2.16.840.1.055492.3.579.2. 593 1951 Unknown [id number] 2.16.840.1.973642.3.579.2. 593 1951 Unknown [id number] 2.16.840.1.870268.3.579.2. 593 1951 Unknown [id number] 2.16.840.1.236591.3.579.2. 593 1951 Unknown [id number] 2.16.840.1.638679.3.579.2. 593 1951 Unknown [id number] 2.16.840.1.611168.3.579.2. 593 1951 Unknown [id number] 2.16.840.1.091649.3.579.2. 593 1951 Unknown [id number] 2.16.840.1.707237.3.579.2. 593 1951 Unknown [id number] 2.16.840.1.389643.3.579.2. 727 1951 Unknown [id number] 2.16.840.1.921949.3.579.2. 727 1951 Unknown [id number] 2.16.840.1.135113.3.579.2. 727 1951 Unknown [id number] 2.16.840.1.496511.3.579.2. 1258 1951 Unknown [id number] 2.840.1.835975.3.579.2. 1258 1951 Unknown [id number] 2.840.1.407379.3.579.2. 1258 1951 Unknown [id number] 2.840.1.709661.3.579.2. 1258 1951 Unknown [id number] 2.840.1.086299.3.579.2. 1258 1951 Unknown [id number] 2.0.1.198936.3.579.2. 1951 Unknown [id number] 2.840.1.870141.3.579.2. 1951 Unknown [id number] .0.1.185407.3.579. Unknown [id number] Unknown HCAP/HFA/FAP Active [id number] Unknown HCAP/HFA/FAP Active [id number] Unknown [id number] 2.840.1.468991.3.579.2. 531 Unknown [id number] 2.840.1.131244.3.579.2. 531 Unknown [id number] 2.840.1.647396.3.579.2. 531 Unknown [id number] 2.840.1.492363.3.579.2. 531 Unknown [id number] 2.16840.1.049292.3.579.2. 531 Unknown [id number] 2.840.1.454058.3.579.2. 531 Social History Date Type Detail Facility Unknown if ever smoked [facility] Other Start: 11-07-2023 End: 06-18-2024 Sex Assigned At [facility] Other Start: 09-29-2021 End: 05-28-2024 Tobacco smoking status Ex-smoker (finding) [facility] Tobacco smoking status Never [facility] Start: 07-23-2018 End: 10-12-2022 Tobacco use and exposure Smokeless tobacco non-user [facility] Start: 10-25-2020 Alcohol intake Ex-drinker (finding) [facility] Start: 1950 Sex Assigned At Not on file [facility] Start: 1950 Sex Assigned At Male F [facility] Start: 10-12-2022 Tobacco smoking stat us NHIS Never smoked tobacco [facility] Start: 11-07-2023 End: 09-24-2024 Alcoholic beverage intake [facility] Start: 11-07-2023 End: 06-18-2024 History of Social function [facility] Start: 05-28-2012 End: 04-30-2024 Sex Male (finding) [facility] Sexual Orientation [facility] Medical Equipment Procedure Code Equipment [...] Assessment Result Facility 08-04-2024 Functional Status N/A [facility] 01-17-2022 Functional status Patient at [facility] Work Phone: 09-29-2021 Functional Status N/A [facility] Mental Status Date Assessment Result Facility 01-17-2022 Cognitive function Cognitive Sta tus Patient at [facility] Work Phone: Clinical Notes 01-03-2021 to 11-23-2024 Note Date & Type Note Facility 11-23-2024 Hospital Discharge instructions Patient Education 11/23/2024 13:42:39 Overactive Bladder, Adult Overactive Bladder, Adult Overactive bladder is a condition in which a person has a sudden and frequent need to urinate. A person might also leak urine if he or she cannot get to the bathroom fast enough (urinary incontinence). Sometimes, symptoms can interfere with work or social activities. What are the causes? Overactive bladder is associated with poor nerve signals between your bladder and your brain. Your bladder may get the signal to empty before it is full. You may also have very sensitive muscles that make your bladder squeeze too soon. This condition may also be caused by other factors, such as: Medical conditions: ?Urinary tract infection. ?Infection of nearby tissues. ?Prostate enlargement. ?Bladder stones, inflammation, or tumors. ?Diabetes. ?Muscle or nerve weakness, especially from these conditions: ?A spinal cord injury. ?Stroke. ?Multiple sclerosis. ?Parkinson's disease. Other causes: ?Surgery on the uterus or urethra. ?Drinking too much caffeine or alcohol. ?Certain medicines, especially those that eliminate extra fluid in the body (diuretics). ?Constipation. What increases the risk? You may be at greater risk for overactive bladder if you: Are an older adult. Smoke. Are going through menopause. Have prostate problems. Have a neurological disease, such as stroke, dementia, Parkinson's disease, or multiple sclerosis (MS). Eat or drink alcohol, spicy food, caffeine, and other things that irritate the bladder. Are overweight or obese. What are the signs or symptoms? Symptoms of this condition include a sudden, strong urge to urinate. Other symptoms include: Leaking urine. Urinating 8 or more times a day. Waking up to urinate 2 or more times overnight. How is this diagnosed? This condition may be diagnosed based on: Your symptoms and medical history. A physical exam. Blood or urine tests to check for possible causes, such as infection. You may also need to see a health care provider who specializes in urinary tract problems. This is called a urologist. How is this treated? Treatment for overactive bladder depends on the cause of your condition and whether it is mild or severe. Treatment may include: Bladder training, such as: ?Learning to control the urge to urinate by following a schedule to urinate at regular intervals. ?Doing Kegel exercises to strengthen the pelvic floor muscles that support your bladder. Special devices, such as: ?Biofeedback. This uses sensors to help you become aware of your body's signals. ?Electrical stimulation. This uses electrodes placed inside the body (implanted) or outside the body. These electrodes send gentle pulses of electricity to strengthen the nerves or muscles that control the bladder. ?Women may use a plastic device, called a pessary, that fits into the vagina and supports the bladder. Medicines, such as: ?Antibiotics to treat bladder infection. ?Antispasmodics to stop the bladder from releasing urine at the wrong time. ?Tricyclic antidepressants to relax bladder muscles. ?Injections of botulinum toxin type A directly into the bladder tissue to relax bladder muscles. Surgery, such as: ?A device may be implanted to help manage the nerve signals that control urination. ?An electrode may be implanted to stimulate electrical signals in the bladder. ?A procedure may be done to change the shape of the bladder. This is done only in very severe cases. Follow these instructions at home: Eating and drinking Make diet or lifestyle changes recommended by your health care provider. These may include: ?Drinking fluids throughout the day and not only with meals. ?Cutting down on caffeine or alcohol. ?Eating a healthy and balanced diet to prevent constipation. This may include: ?Choosing foods that are high in fiber, such as beans, whole grains, and fresh fruits and vegetables. ?Limiting foods that are high in fat and processed sugars, such as fried and sweet foods. Lifestyle Lose weight if needed. Do not use any products that contain nicotine or tobacco. These include cigarettes, chewing tobacco, and vaping devices, such as e-cigarettes. If you need help quitting, ask your health care provider. General instructions Take gnuc-hjh-zphzesa and prescription medicines only as told by your health care provider. If you were prescribed an antibiotic medicine, take it as told by your health care provider. Do not stop taking the antibiotic even if you start to feel better. Use any implants or pessary as told by your health care provider. If needed, wear pads to absorb urine leakage. Keep a log to track how much and when you drink, and when you need to urinate. This will help your health care provider monitor your condition. Keep all follow-up visits. This is important. Contact a health care provider if: You have a fever or chills. Your symptoms do not get better with treatment. Your pain and discomfort get worse. You have more frequent urges to urinate. Get help right away if: You are not able to control your bladder. Summary Overactive bladder refers to a condition in which a person has a sudden and frequent need to urinate. Several conditions may lead to an overactive bladder. Treatment for overactive bladder depends on the cause and severity of your condition. Making lifestyle changes, doing Kegel exercises, keeping a log, and taking medicines can help with this condition. This information is not intended to replace advice given to you by your health care provider. Make sure you discuss any questions you have with your health care provider. Document Revised: 12/05/2020 Document Reviewed: 12/05/2020 [employer] Patient Education 2023 [employer]. 11/23/2024 13:42:32 Bladder Cancer Bladder Cancer Bladder cancer is a condition where abnormal tissue (a tumor) grows in the bladder. The bladder is the organ that holds urine. Two tubes (ureters) carry urine from the kidneys to the bladder. The bladder wall is made of layers of tissue. Cancer that spreads through these layers of the bladder wall becomes more difficult to treat. What increases the risk? The following factors may make you more likely to develop this condition: Smoking. Working where there are risks (occupational exposures), such as working with rubber, leather, clothing fabric, dyes, chemicals, or paint. Being 55 years of age or older. Being male. Having long-term bladder inflammation. Having a history of cancer. This includes: ?A family history of bladder cancer. ?Having had bladder cancer before. ?Having had certain treatments for cancer before, such as: ?Medicines to kill cancer cells (chemotherapy). ?Strong X-ray beams or high-energy capsules to kill cancer cells and shrink tumors (radiation therapy). Having been exposed to arsenic. This is a poisonous substance. What are the signs or symptoms? Early symptoms of this condition include: Blood in your urine. Pain when urinating. Infections of your urinary system (urinary tract infections or UTIs) that happen often. Having to urinate sooner or more often than normal. Late symptoms of this condition include: Not being able to urinate. Pain on one side of your lower back. Loss of appetite. Weight loss. Tiredness (fatigue). Swelling in your feet. Bone pain. How is this diagnosed? This condition is diagnosed based on: Your medical history. A physical exam. Lab tests, such as urine tests. Imaging tests. Your symptoms. You may also have other tests or procedures, such as: A cystoscopy. This involves putting a narrow tube into your urethra. The urethra is the organ that carries urine from your bladder to the outside of your body. This procedure is done to view the lining of your bladder for tumors. A biopsy. This involves removing a tissue sample to look at under a microscope to check for cancer. Blood tests or imaging tests may be needed. These show how far into the bladder wall cancer has grown, and if cancer has spread to any other parts of your body. Tests may include: CT scan. MRI. Bone scan. X-ray. How is this treated? Your health care provider may recommend one or more types of treatment based on the stage of your cancer. The most common treatments are: Surgery to remove the cancer. Types of surgeries include: ?Removing a tumor on the inside wall of the bladder (transurethral resection). ?Removing the bladder (cystectomy). Radiation therapy. This is often combined with chemotherapy. Chemotherapy. Immunotherapy. This uses medicines to help your body's disease-fighting system (immune system) destroy cancer cells. Follow these instructions at home: Take sojt-rhh-kijcvyg and prescription medicines only as told by your health care provider. If you were prescribed an antibiotic medicine, take it as told by your health care provider. Do not stop using the antibiotic even if you start to feel better. Eat a healthy diet. Some treatments might affect your appetite. Do not use any products that contain nicotine or tobacco. These products include cigarettes, chewing tobacco, and vaping devices, such as e-cigarettes. If you need help quitting, ask your health care provider. Consider joining a support group. This may help you learn to deal with the stress of having bladder cancer. Tell your cancer care team if you develop side effects. Your team may be able to recommend ways to get relief. Keep all follow-up visits. This is important. Where to find more information [place] [employer] (ACS): cancer.org National Cancer Staley (NCI): cancer.gov Contact a health care provider if: You have symptoms of a UTI. These include: ?Fever. ?Chills. ?Weakness. ?Muscle aches. ?Pain in your abdomen. ?Urge to urinate that is stronger and happens more often than normal. ?Burning in the bladder or urethra when you urinate. Get help right away if: There is blood in your urine. You cannot urinate. You have severe pain or other symptoms that do not go away. Summary Bladder cancer is a condition where tumors grow in the bladder. Diagnosis is based on your medical history, a physical exam, lab tests, imaging tests, and your symptoms. Your health care provider may recommend one or more types of treatment based on the stage of your cancer. Consider joining a support group. This may help you learn to deal with the stress of having bladder cancer. This information is not intended to replace advice given to you by your health care provider. Make sure you discuss any questions you have with your health care provider. Document Revised: 02/26/2022 Document Reviewed: 02/26/2022 [employer] Patient Education 2023 [employer]. Follow Up Care 11/13/2024 09:03:29 With:CHAYA LEMUS, Jason Sacnhez, URL Address: [address] [address] When: Unknown Comments:4 wks (new med) [facility] Enrique 11-23-2024 Note Patient Education Obstetrics and Gynecology Overactive Bladder, Adult Overactive bladder is a condition in which a person has a sudden and frequent need to urinate. A person might also leak urine if he or she cannot get to the bathroom fast enough (urinary incontinence). Sometimes, symptoms can interfere with work or social activities. What are the causes? Overactive bladder is associated with poor nerve signals between your bladder and your brain. Your bladder may get the signal to empty before it is full. You may also have very sensitive muscles that make your bladder squeeze too soon. This condition may also be caused by other factors, such as: ??? Medical conditions: ? Urinary tract infection. ? Infection of nearby tissues. ? Prostate enlargement. ? Bladder stones, inflammation, or tumors. ? Diabetes. ? Muscle or nerve weakness, especially from these conditions: ? A spinal cord injury. ? Stroke. ? Multiple sclerosis. ? Parkinson's disease. ??? Other causes: ? Surgery on the uterus or urethra. ? Drinking too much caffeine or alcohol. ? Certain medicines, especially those that eliminate extra fluid in the body (diuretics). ? Constipation. What increases the risk? You may be at greater risk for overactive bladder if you: ??? Are an older adult. ??? Smoke. ??? Are going through menopause. ??? Have prostate problems. ??? Have a neurological disease, such as stroke, dementia, Parkinson's disease, or multiple sclerosis (MS). ??? Eat or drink alcohol, spicy food, caffeine, and other things that irritate the bladder. ??? Are overweight or obese. What are the signs or symptoms? Symptoms of this condition include a sudden, strong urge to urinate. Other symptoms include: ??? Leaking urine. ??? Urinating 8 or more times a day. ??? Waking up to urinate 2 or more times overnight. How is this diagnosed? This condition may be diagnosed based on: ??? Your symptoms and medical history. ??? A physical exam. ??? Blood or urine tests to check for possible causes, such as infection. You may also need to see a health care provider who specializes in urinary tract problems. This is called a urologist. How is this treated? Treatment for overactive bladder depends on the cause of your condition and whether it is mild or severe. Treatment may include: ??? Bladder training, such as: ? Learning to control the urge to urinate by following a schedule to urinate at regular intervals. ? Doing Kegel exercises to strengthen the pelvic floor muscles that support your bladder. ??? Special devices, such as: ? Biofeedback. This uses sensors to help you become aware of your body's signals. ? Electrical stimulation. This uses electrodes placed inside the body (implanted) or outside the body. These electrodes send gentle pulses of electricity to strengthen the nerves or muscles that control the bladder. ? Women may use a plastic device, called a pessary, that fits into the vagina and supports the bladder. ??? Medicines, such as: ? Antibiotics to treat bladder infection. ? Antispasmodics to stop the bladder from releasing urine at the wrong time. ? Tricyclic antidepressants to relax bladder muscles. ? Injections of botulinum toxin type A directly into the bladder tissue to relax bladder muscles. ??? Surgery, such as: ? A device may be implanted to help manage the nerve signals that control urination. ? An electrode may be implanted to stimulate electrical signals in the bladder. ? A procedure may be done to change the shape of the bladder. This is done only in very severe cases. Follow these instructions at home: Eating and drinking ??? Make diet or lifestyle changes recommended by your health care provider. These may include: ? Drinking fluids throughout the day and not only with meals. ? Cutting down on caffeine or alcohol. ? Eating a healthy and balanced diet to prevent constipation. This may include: ? Choosing foods that are high in fiber, such as beans, whole grains, and fresh fruits and vegetables. ? Limiting foods that are high in fat and processed sugars, such as fried and sweet foods. Lifestyle ??? Lose weight if needed. ??? Do not use any products that contain nicotine or tobacco. These include cigarettes, chewing tobacco, and vaping devices, such as e-cigarettes. If you need help quitting, ask your health care provider. General instructions ??? Take avtk-ghe-ytijqdd and prescription medicines only as told by your health care provider. ??? If you were prescribed an antibiotic medicine, take it as told by your health care provider. Do not stop taking the antibiotic even if you start to feel better. ??? Use any implants or pessary as told by your health care provider. ??? If needed, wear pads to absorb urine leakage. ??? Keep a log to track how much and when you drink, and whe (more content not included)... [facility] 11-11-2024 Note Patient: Lani Quintanilla ed Procedure Summary Date: 11/11/24 Room / Location: [facility] OPERATING ROOM 07 / [facility] Operating Room Anesthesia Start: 857 Anesthesia Stop: 1021 Procedure: TURBT (TRANSURETHRAL RESECTION OF BLADDER TUMOR) Diagnosis: Malignant neoplasm of urinary bladder, unspecified site (CMS/HCC) (Malignant neoplasm of urinary bladder, unspecified site (CMS/HCC) [C67.9]) Surgeons: Last Mcmanus MD Responsible Provider: Xavier Ulrich MD Anesthesia Type: general ASA Status: 4 Anesthesia Type: general Vitals Value Taken Time BP 128/63 11/11/24 10:48 Temp 36.1 ???C (97 ???F) 11/11/24 10:18 Pulse 67 11/11/24 10:48 Resp 13 11/11/24 10:48 SpO2 99 % 11/11/24 10:48 Anesthesia Post Evaluation Patient location during evaluation: PACU Patient participation: complete - patient participated Level of consciousness: awake and sleepy but conscious Pain management: adequate Airway patency: patent Cardiovascular status: acceptable Respiratory status: acceptable Hydration status: acceptable Patient is hemodynamically stable and is able to be discharged from PACU per anesthesia protocol. No notable events documented. [facility] 11-11-2024 Note H&P reviewed. The jaron mark was examined and there are no changes to the H&P. [facility] 11-11-2024 Note Patient: Lani Quintanilla ed Procedure Information Date/Time: 11/11/24 0830 Procedure: TURBT (TRANSURETHRAL RESECTION OF BLADDER TUMOR) Location: [facility] OPERATING ROOM 07 / [facility] Operating Room Surgeons: Last Mcmanus MD Relevant Problems Cardio (+) AV block, 3rd degree (CMS/HCC) (third-degree AV block status post PPM) (+) Angina at rest (+) Carotid stenosis, asymptomatic (+) Coronary artery disease involving [place] coronary artery of [place] heart (CABG x 5, PCI to SVG-PDA on 08/2023 on ASA/Plavix) (+) Essential hypertension (+) NSTEMI (non-ST elevated myocardial infarction) (CMS/HCC) (+) Pacemaker (+) Stenosis of abdominal aorta Endo (+) Type 1 diabetes mellitus (CMS/HCC) (Resolved) (+) Type 2 diabetes mellitus with hyperglycemia (CMS/HCC) (+) Type 2 diabetes mellitus without complication, with long-term current use of insulin (CMS/HCC) GI (+) Gastroesophageal reflux disease /Renal (+) Chronic kidney disease (+) Stage 3b chronic kidney disease (CKD) (CMS/HCC) Circulatory (+) HFrEF (heart failure with reduced ejection fraction) (CMS/HCC) ((ECHO 07/2024 EF 25%,Diffuse global hypokinesis) s/p BiV ICD) (+) PVD (peripheral vascular disease) Other (+) Arthritis Clinical information reviewed: Tobacco Allergies Meds Med Hx Surg Hx Fam Hx Soc Hx Encounter Date: 08/13/24 ECG 12 lead Result Value Ventricular Rate 86 Atrial Rate 86 SD Interval 154 QRS DURATION 144 QT Interval 424 QTC CALCULATION(BAZETT) 507 P [place] 37 R-[place] -56 T Wave [place] 114 Impression Atrial-sensed ventricular-paced rhythm Biventricular pacemaker detected Abnormal ECG When compared with ECG of 13-FEB-2024 04:45, Vent. rate has increased BY 9 BPM Confirmed by Kevin Jacobs ([id number]) on 08/13/2024 9:47:29 PM Complete Echo (TTE) w/wo Imaging Agent, Strain, 3D, Bubble Study Result Date: 08/14/2024 1 1 [facility] Heart Station [address] [place] [address] (fax) Echocardiogram-[facility] Name: LANI ILZAMA Study Date: 08/14/2024 08:33 AM B/P: 118 [...] pressures due to lack of measurable tricuspid regurgit (more content not included)... [facility] 10-27-2024 Evaluation note Diagnosis Onset Date Resolution Anemia acute October 27 11:31am Chronic HFrEF (heart failure with reduced ejection fraction) acute October 27 11:31am Chronic kidney disease acute Ju ly 2024 11:31am HTN (hypertension) acute September 302024 11:31am Hypercholesterolemia acute October 27, 2024 11:31am Ischemic cardiomyopathy acute J angelita 2024 11:31am Transitional cell bladder cancer acute October 27, 2024 11:31am Type 2 diabetes mellitus with diabetic peripheral angiopathy without gangrene acute October 27, 2024 11:31am Type 2 diabetes mellitus with hyperglycemia acute October 27 11:31am Type 2 diabetes mellitus with severe nonproliferative diabetic retinopathy acute October 27, 2024 11:31am Dietary counseling and surveillance acute November 10 9:22am HTN (hypertension) acute November 10, 2024 9:22am BMI 28.0-28.9,adult inactive Augus t 2024 9:22am DM2 (diabetes mellitus, type 2) deleted November 10 9:22am HLD (hyperlipidemia) deleted st 2024 9:22am Anemia acute December 01, 2024 8:48am Chronic HFrEF (heart failure with reduced ejection fraction) acute November 8:48am Chronic kidney disease acute pt2024 8:48am HTN (hypertension) acute 2024 8:48am Hypercholesterolemia acute Nov 8:48am Ischemic cardiomyopathy acute 2024 8:48am Medicare annual wellness visit, subsequent acute December 01, 2024 8:48am Polyuria acute December 01, 2024 8:48am Transitional cell bladder cancer acute December 01, 2024 8:48am Type 2 diabetes mellitus with diabetic peripheral angiopathy without gangrene acute Nov 8:48am Type 2 diabetes mellitus with hyperglycemia acute November 8:48am [facility] Work Phone: 1(772) 123-518207-10-2025 [facility] Chief Complaint: Patient here for 2 month follow up . Patient states he has been feeling rough. Patient states he had and [place] in July then diagnosed with cancer in [...] mildly elevated troponin. Patient was transferred to [facility] for further evaluation and treatment. [...] (Plavix) 75 mg tablet, (more content not included)...[facility]07-08-2025 NotePatient was here today for a void trial [...] or go to the ER. Patient verbalized understanding.[facility]07-01-2025 NotePatient: Lani Nakul Mega Procedure Summary Date: 09/29/24 Room / Location: [facility] OPERATING ROOM 07 / [facility] Operating Room Anesthesia Start: 1337 Anesthesia Stop: [...] were no known notable events for this encounter.[facility]07-01-2025 NoteSatisfactory for evaluation. Examination of the ThinPrep slide reveals atypical cells, urothelial cells, abundant acute inflammation, blood, fungal spores consistent with Coretta species and debris. [facility] CampusComment on above:Order Comment: Pre-op diagnosis:Lesion of bladder [N32.9]Performed By: #### LAB13 ####[facility] [[email or web address]] LAB (BEAKER)[address] [place], [place] [phone] NoteSpinal Block Patient location during procedure: OR Start time: 09/29/2024 1:45 PM End time: 09/29/2024 1:55 PM Reason for block: primary anesthetic Staffing Performed: resident/SNAPPER ON/CAA Anesthesiologist: Dorcas Dang MD Resident/SNAPPER ON: Mirela Devlin MD Performed by: Mirela Devlin [...] patient tolerated procedure well with no immediate complicationsUnAdena Regional Medical Center07-01-2025 NotePatient: Lani Lizama Procedure Information Date/Time: 09/29/24 1230 Procedure: TURBT (TRANSURETHRAL RESECTION OF BLADDER TUMOR) Location: [facility] OPERATING ROOM 07 / [facility] Operating Room Surgeons: Last Mcmanus MD Relevant Problems Cardio (+) AV block, 3rd degree (CMS/HCC) (+) Angina at rest (+) Carotid stenosis, asymptomatic (+) Coronary artery disease involving [place] coronary artery of [place] heart (+) Essential hypertension (+) NSTEMI (non-ST elevated myocardial infarction) ([facility]) (+) Stenosis of abdominal aorta Endo (+) Type 1 diabetes mellitus ([facility]) (+) Type 2 diabetes mellitus with hyperglycemia ([facility]) (+) Type 2 diabetes mellitus without complication, with long-term current use of insulin ([facility]) GI (+) Gastroesophageal reflux disease /Renal (+) Chronic kidney disease Circulatory (+) HFrEF (heart failure with reduced ejection fraction) ([facility]) (+) History of coronary artery bypass surgery Clinical information reviewed: Allergies Meds Med Hx Surg Hx Surgical History[1] Medical History[2] Medication Documentation Review Audit Reviewed by Judy Avila RN (Registered Nurse) on 09/29/24 at 1059 Medication Order Taking? Sig Documenting Provider Last Dose Status ALPRAZolam (Xanax) 0.5 mg tablet [id number] Yes Take 1 tablet by mouth in the morning, afternoon, and at bedtime. Racquel Marcelo MD 09/29/2024 Active amLODIPine (Norvasc) 5 mg tablet [id number] Yes Take 1 tablet (5 mg) by mouth in the morning. Pinky Bishop MD 09/29/2024 Active aspirin 81 mg chewable tablet [id number] Yes Chew 1 tablet every day by oral route. Racquel ProviderMD Past Week Active cholecalciferol (Vitamin D3) 25 MCG (1000 units) tablet [id number] Yes Take 1,000 Units by mouth in the morning. Racquel Marcelo MD 09/28/2024 Active clopidogrel (Plavix) 75 mg tablet [id number] Yes Take 1 tablet by mouth in the morning. Racquel Marcelo MD Past Week Active docusate sodium (Colace) 100 mg capsule [id number] Yes Take 100 mg by mouth in the morning. Racquel Marcelo MD 09/28/2024 Active empagliflozin (Jardiance) 10 mg [id number] Yes Take 1 tablet every day by oral route. Racquel Marcelo MD 09/29/2024 Active insulin aspart (NovoLOG) 100 unit/mL injection vial [id number] Yes Inject 10 Units under the skin with breakfast, with lunch, and with evening meal. Sliding scale Racquel Marcelo MD 09/28/2024 Active insulin degludec (TRESIBA FLEXTOUCH U-100 SUBQ) [id number] Yes Inject 15 Units under the skin in the morning. Racquel Marcelo MD 09/29/2024 Active insulin detemir (Levemir) 100 unit/mL injection [id number] Yes Inject 5 Units under the skin two times daily. SLIDING SCALE Racquel Marcelo MD 09/29/2024 Active isosorbide mononitrate ER (Imdur) 60 mg 24 hr tablet [id number] Take 1 tablet (60 mg) by mouth 2 times daily. Carlos A Duarte MD 08/20/24 235 levoFLOXacin (Levaquin) 250 mg tablet [id number] Yes Racquel Marcelo MD 09/29/2024 Active metoprolol succinate XL (Toprol-XL) 50 mg 24 hr tablet [id number] Take 3 tablets (150 mg) by mouth in the morning for 97 doses. Do not crush or chew. Aramis Sellers MD 08/20/24 235 nitroglycerin (Nitrostat) 0.4 mg SL tablet [id number] No PLACE 1 TABLET UNDER TONGUE EVERY 5 MINS, UP TO 3 DOSES NEEDED FOR CHEST PAIN Patient not taking: Reported on 09/29/2024 Pinky Bishop MD More than a month Active pantoprazole (ProtoNix) 40 mg EC tablet [id number] Yes TAKE 1 TABLET BY MOUTH DAILY ON AN EMPTY STOMACH FOLLOWED BY BREAKFAST 30 MINUTES AFTER Historical Provider, 09/29/2024 Active ranolazine (Ranexa) 500 mg 12 hr tablet [id number] Yes Take 1 tablet (500 mg) by mouth two times daily. Do not crush, chew, or split. Pinky Bishop MD 09/29/2024 Active rosuvastatin (Crestor) 40 mg tablet [id number] Yes TAKE 1 TABLET BY MOUTH AT BEDTIME Kevin Jacobs MD 09/29/2024 Active spironolactone (Aldactone) 25 mg tablet [id number] Yes Take 1 tablet (25 mg) by mouth in the morning. Pinky Bishop MD 09/29/2024 Active thiamine (Vitamin B-1) 100 mg tablet [id number] Yes Take 100 mg by mouth every other day. Historical Provider, 09/28/2024 Active thiamine (Vitamin B-1) 250 mg tablet [id number] Yes Take 250 mg by mouth every [...] 1.17 (H) 02/13/2024 INR (more content not included)...[facility]07-01-2025 NoteH&P reviewed. The patient was examined and there are no changes to the H&P. [facility]06-26-2025 History of Present illness Narrative* Kenneth Tavera, DPM - 09/24/2024 8:40 AM EDT Patient: Lani Lizama : 1950 PCP: Harley Crespo DO SUBJECTIVE This is a 73 y.o. [...] Date Diabetic retinopathy (HCC) HTN (hypertension) Hypercholesteremia [place] (myocardial infarction) (HCC) 2021 Two total: 02/20, [...] in the morning., Disp: , Rfl: HYDROcodone-acetaminophen ([place]) 5-325 MG tablet, TAKE 1 TABLET BY [...] Strain: Low Risk (08/13/2024) Received from [facility] Overall Financial Resource Strain (CARDIA) Difficulty of Paying Living Expenses: Not hard at all Food Insecurity: No Food Insecurity (08/13/2024) Received from [facility] Hunger Vital Sign Within the past 12 months, you worried that your food would run out before you got the money to buymore.: Never true Ran Out of Food in the Last Year: Not on file Transportation Needs: No Transportation Needs (08/13/2024) Received from [facility] Transportation In the past 12 months, has lack of transportation kept you from medical appointments or from getting medications?: No Lack of Transportation (Non-Medical): Not on file Physical Activity: Not on file Stress: Not on file Social Connections: Not on file Intimate Partner Violence: Unknown (08/13/2024) Received from [facility] Humiliation, Afraid, Rape, and Kick questionnaire Fear of Current or Ex-Partner: No Emotionally Abused: Not on file Physically Abused: Not on file Sexually Abused: Not on file Housing Stability: Low Risk (08/13/2024) Received from [facility] Housing Stability Vital Sign In the last 12 months, was there a time when you were not able to pay the mortgage or rent on time?: No Number of Times Moved in the Last Year: Not on file At any time in the past 12 months, were you homeless or living in a retirement (including now)?: No ROS: General: denies fever, [...] and negative PT pedal pulses NEURO: 5.07 Hartselle Chun monofilament test diminished to digits and [...] him Kenneth Tavera DPM documented in this encounterRipley County Memorial [id number] NoteUnCleveland Clinic South Pointe Hospital Department of Urology Clinic CONSULTATION Reason [...] significant pain. He was therefore referred to [facility] where he underwent a cystoscopy with [...] Transportation Needs: No Tr (more content not included)...[facility]05-27-2025 Evaluation note* Diagnosis Onset Date Resolution Status [...] diabetic retinopathy acute August 25, 2024 11:31am Anemia acute October 27 11:31am Chronic HFrEF [...] 11:31am Dietary counseling and surveillance acute November 10, 2024 9:22am HTN (hypertension) acute November 10, 2024 9:22am BMI 31.0-31.9,adult deleted t 2024 9:22am DM2 (diabetes mellitus, type 2) indio soraya November 10, 2024 9:22am HLD (hyperlipidemia) deleted 2024 9:22am Scab deleted November 10 025 9:22am [facility] Work Phone: 1(203) 104-632705-22-2025 [facility] Note Chief Complaint: Patient here for follow up [facility] for an [place] and bladder surgery clearance. Patient states he [...] mildly elevated troponin. Patient was transferred to [facility] for further evaluation and treatment. [...] Disp: , Rfl: isosor (more content not included)...[facility] 08-14-2024 NoteHospital Medicine Discharge Summary Final Discharge Diagnosis: Chest [...] mildly elevated troponin. Patient was transferred to [facility] for further evaluation and treatment. [...] Center 08/20/2024 9:45 AM Pinky Bishop MD MARCELINO Dudley [facility] 08/28/2024 8:30 AM Last Mcmanus MD [facility] URO Second Fl Your medication [...] Medications These medications were sent to [facility] - [place], [place] - [address] [place] [address] [place] [address], [facility] [address] amLODIPine 5 mg tablet Lani has No Known Allergies. Disposition: Home or Self Care () Discharge Condition: Stable Code Status: Prior Diagnostic Results Hematology: Results from last 7 days Lab Units 08/13/24 1421 WBC AUTO 10*3/uL 7.62 HEMOGLOBIN g/dL 13.1 HEMATOCRIT % 39.8 MCV fL 89.0 PLATELETS AUTO 10*3/uL 201 Chemistry: Results from last 7 days Lab Units (more content not included)...[facility]05-16-2025 NoteAdult Nutrition Assessment: Name: Lani Lizama Date: [...] of Nutrition and Dietetics (AND) and the [place] Society of Enteral and Parenteral Nutrition (ASPEN). [...] difference between simp (more content not included)... [facility]05-16-2025 Note08/14/24 1204 Admission Assessment Questions Verify insurance with [...] Status Interested Does the patient have a geriatric case manager assigned to them through their [...] able to send link and activate MyChart? [facility]05-16-2025 Note Attestation signed by Tatianna Hayward MD [...] see Dr. Bishop, do cardiac rehab at [facility] and if he has uncontrolled chest pain [...] No edema. Left lower (more content not included)...[facility] 08-13-2024 NoteRecent cystoscopy follows urology CODE STATUS full codeUnAdena Regional Medical Center05-15-2025 NoteOn antiplatelet agent watch for hematuria and followUnAdena Regional Medical Center05-15-2025 NoteAs aboveUnAdena Regional Medical Center05-15-2025 Note Insulin blood sugar check dietUnAdena Regional Medical Center05-15-2025 Note Avoid hypovolemia and nephrotoxic meds hold lisinopril since patient on Aldactone watch potassium electrolyte creatinine renal function consider nephrology consultUnAdena Regional Medical Center05-15-2025 NoteDecongestive breath/guideline directed medical therapy limited because of renal function watch creatinine electrolytes especially potassium intake and output [facility]05-15-2025 NoteChest pain-free, cycle troponin telemetry continue statin aspirin nitrates beta-jason watch for hypotension and bradycardia cardiology to see patient [facility]05-15-2025 NoteHospital Medicine History and Physical 08/13/2024 1:16 PM THE HOSPITALIST TEAM PREFERS TO USE [employer] FOR NON-URGENT COMMUNICATION 7AM-7PM. IF I DO NOT RESPOND WITHIN 20 MINUTES OR URGENT MATTERS, PLEASE CALL THROUGH THE PRODUCTION LINE MECHANIC. FROM 7PM-7AM, PLEASE PAGE [phone](COVR). Chief Complaint No chief complaint on file. History of Present Illness Lani Lizama is an 73 y.o. male 73 years old white male transferred from [facility] with intermittent chest pain anterior chest [...] basal and postprandial insulin. His labs from [facility] reveals patient having chronic kidney disease [...] HFrEF (heart failure with reduced ejection fraction) (CMS/[facility]) Decongestive breath/guideline directed medical therapy limited because of renal function watch creatinine electrolytes especially potassium intake and output Coronary artery disease involving [place] coronary artery of [place] heart As above Chronic kidney disease Avoid hypovolemia and nephrotoxic meds hold lisinopril since patient on Aldactone watch potassium electrolyte creatinine renal function consider nephrology consult Type 2 diabetes mellitus without complication, with long-term current use of insulin ([facility]) Insulin blood sugar check diet Angina at rest As above Gross hematuria On antiplatelet agent watch for hematuria and follow Bladder cancer ([facility]) Recent cystoscopy follows urology CODE STATUS full code VTE Prophylaxis: Heparin subcutaneous watch for bleed ----- Focus of this inpatient stay will remain on problems that need acute care setting for care. We will review available studies and will order additional labs, imaging and other studies as appropriate. As need (more content not included)...[facility] 08-04-2024 Hospital Discharge instructions Patient Education 08/04/2024 [...] Up Care 08/03/2024 14:29:05 With:Jason LARKIN Address: [address] [place], [place] [address] Business (1) When: Unknown Comments:Office will call to schedule follow up [facility] 05-06-2025 NotePatient Education Custom Cystoscopy ??? Voiding after the [...] if you have a fever over 100 degrees.[facility] 08-03-2024 NotePatient Education Urology Cystoscopy Cystoscopy is a procedure [...] including vitamins, herbs, eye drops, creams, and qubr-ixi-htwavwv medicines. ??? Any problems you or family [...] tells you to take them. ??? Taking alal-gnr-fzrnvaq medicines, vitamins, herbs, and supplements. Tests You [...] cystoscope to fill your bladder. The fluid willstretch your bladder so that your health care [...] these instructions at home: Medicines ??? Take taly-pjd-ishhyfh and prescription medicines only as told by your health care provider. ??? If you were prescribed an antibiotic medicine, take it as told by your health care provider. Donot stop taking the antibiotic even if you [...] testing (biopsy) during your (more content not included)...[facility]05-05-2025 Evaluation note* Diagnosis Onset Date Resolution Status Admit Date Dietary counseling and surveillance acute August 03, [...] diabetic retinopathy acute August 25, 2024 11:31am [facility] Work Phone: 1(467) 426-662205-05-2025 Evaluation note* Diagnosis Onset Date Resolution Status Admit Date Dietary counseling and surveillance acute August 03, [...] diabetic retinopathy acute August 25, 2024 11:31am Chronic HFrEF (heart failure with reduced ejection fraction) acute October 27, 2024 11:31am Chronic kidney disease acute Ju ly 2024 11:31am HTN (hypertension) acute September 302024 11:31am Hypercholesterolemia acute October 27, 2024 11:31am Ischemic cardiomyopathy acute J angelita 2024 11:31am Type 2 diabetes mellitus wit h diabetic peripheral angiopathy without gangrene acute October 27, 2024 11:31am Type 2 diabetes mellitus wit h hyperglycemia acute October 27, 2024 11:31am Type 2 diabetes mellitus wit h severe nonproliferative diabetic retinopathy acute October 27, 2024 11:31am [facility] Work Phone: 1(493) 876-436204-28-2025 Evaluation note* Diagnosis Onset Date Resolution Status [...] diabetic retinopathy acute August 25, 2024 11:31am [facility] Work Phone: 1(228) 289-627604-15-2025 Evaluation note* Diagnosis Onset Date Resolution Status [...] July 9:17am DM2 (diabetes mellitus, type 2) indio soraya August 03, 2024 9:17am HLD (hyperlipidemia) deleted August 03, 2024 9:17am [facility] Work Phone: 1(439) 693-146504-15-2025 Evaluation note* Diagnosis Onset Date Resolution Status [...] 312024 11:31am Chronic kidney disease acute Ma 2024 11:31am HTN (hypertension) acute August 252024 [...] diabetic retinopathy acute August 25, 2024 11:31am [facility] Work Phone: 1(311) 267-812801-30-2025 Evaluation note* Diagnosis Onset Date Resolution Status [...] h hyperglycemia acute July 27, 2024 11:19am [facility] Work Phone: 1(789) 628-459801-16-2025 Evaluation note* Diagnosis Onset Date Resolution Status [...] 2024 9:21am HLD (hyperlipidemia) deleted 2024 9:21am [facility] Work Phone: 1(327) 676-607601-16-2025 Evaluation note* Diagnosis Onset Date Resolution Status [...] kidney disease acute July 14, 2024 9:36am [facility] Work Phone: 1(989) 102-755101-02-2025 History of Present illness Narrative* Kenneth Tavera, [...] Past Medical History: Diagnosis Date Diabetic retinopathy ([facility]) HTN (hypertension) ([facility] Hypercholesteremia ([facility]) [place] (myocardial infarction) ([facility]) 2021 Two total: 02/20, 03/22 Type 1 diabetes mellitus ([facility]) Medications: Current Outpatient Medications: ALPRAZolam (Xanax) 0.5 [...] in the morning., Disp: , Rfl: HYDROcodone-acetaminophen ([place]) 5-325 MG tablet, TAKE 1 TABLET BY [...] Strain: Low Risk (02/13/2024) Received from [facility] Overall Financial Resource Strain (CARDIA) Difficulty of Paying Living Expenses: Not very hard Food Insecurity: No Food Insecurity (02/13/2024) Received from [facility] Hunger Vital Sign Within the past 12 months, you worried that your food would run out before you got the money to buymore.: Never true Ran Out of Food in the Last Year: Not on file Transportation Needs: No Transportation Needs (02/13/2024) Received from [facility] Transportation In the past 12 months, has lack of transportation kept you from medical appointments or from getting medications?: No Lack of Transportation (Non-Medical): Not on file Physical Activity: Not on file Stress: Not on file Social Connections: Not on file Intimate Partner Violence: Unknown (02/13/2024) Received from [facility] Humiliation, Afraid, Rape, and Kick questionnaire Fear of Current or Ex-Partner: No Emotionally Abused: Not on file Physically Abused: Not on file Sexually Abused: Not on file Housing Stability: Low Risk (02/13/2024) Received from [facility] Housing Stability Vital Sign In the last 12 months, was there a time when you were not able to pay the mortgage or rent on time?: No Number of Times Moved in the Last Year: Not on file At any time in the past 12 months, were you homeless or living in a retirement (including now)?: No ROS: General: denies fever, [...] and negative PT pedal pulses NEURO: 5.07 Hartselle Chun monofilament test diminished to digits and forefoot bilaterally 125Hz tuning fork diminished to 1st MPJ bilaterally ORTHO: Positive pain on palpation to nails 1 through 10 ASSESSMENT 1. Diabetes 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, without long-term current use of insulin ([facility]) 2. Pain due to onychomycosis of [...] him Kenneth Tavera DPM documented in this encounterRipley County Memorial [id number] NoteUT Cardiology Consult Note Reason for visit: Complete heart block on event monitor, HFrEF 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%, atrial tachycardia 03/10/24 Patient here for 5 mo follow up bradycardia, complete heart block s/p PPM per Dr. Bishop. He was also admitted to [facility] for NSTEMI last month. Underwent heart cath with Dr. Pena on 02/12. He was started on Ranexa and lisinopril was stopped. Denies chest pain, SOB, and palpitations. Gets lightheaded at times, but no syncopal episodes. 05/07/23 Patient is s/p BiV ICD. he feels much better and believes that he is gone from to 10/08 with [employer]AD[employer]. patient has got good device threshold. he [...] and hypertension. He was recently admitted to [facility] for NSTEMI. Had inpatient stress test and [...] Tobacco Use: Low Risk (01/23/2024) Received from [employer], [facility] [employer] Patient History Smoking Tobacco Use: Never Smokeless Tobacco Use: Never Passive Exposure: Not on file Alcohol Use: Not At Risk (03/13/2018) Received from [employer], [facility] AUDIT[facility] Frequency of Alcohol Consumption: Never Average [...] Abused: Not on f (more content not included)...[facility]11-25-2024 Evaluation note* Diagnosis Onset Date Resolution Status [...] 2024 9:21am HLD (hyperlipidemia) deleted 2024 9:21am [facility] Work Phone: 1(264) 380-658711-15-2024 NoteHospital Medicine Discharge Summary Final Discharge Diagnosis: NSTEMI CAD s/p CABG, PCI 08/2023 Chronic heart failure with reduced ejection fraction, NYHA class II Insulin-dependent type 2 diabetes mellitus Chronic kidney disease stage III A Third degree AV block with AICD/pacemaker Essential hypertension Carotid stenosis Hyperlipidemia Peripheral vascular disease Admission Diagnosis: NSTEMI (non-ST elevated myocardial infarction) (CMS/[facility]) [I21.4] Hospital course: Lani Lizama is an 73 y.o. male who came from Transferred from [facility] with NSTEMI with NSTEMI. 71-year-old gentleman [...] on that. Patient was transferred from [facility] to [facility] where he was seen for chest pain that has been going on for most of the day causing him to take nitroglycerin on 5 separate incidences and with intensification of the chest pain at shortening intervals that caused him to call the ambulance. At [facility] workup did show that patient had rising troponins initial 1 was 23 and then 85 isa intensity troponin. There was no mention change on the EKG as was reported to me by the ER physician Dr. Lagos at [facility]. Other workup that was done at [facility] included basic metabolic panel that showed [...] as above. The ER physician from [facility] had spoken to our truck farmer here who accepted the patient for transfer to [facility] for possible trip to the [employer] [place] very early this morning depending on the [...] Center 03/10/2024 10:45 AM Kevin Jacobs MD [facility] Luis Enrique Hos Your medication list START [...] 40 mg tablet Commonly (more content not included)...[facility] 02-13-2024 NoteHospital Medicine Daily Progress Note - 02/13/2024 8:36 AM; Room: [address] [place] [address] Admission: 02/13/2024 2:53 AM; Length of stay: 0 days THE HOSPITALIST TEAM PREFERS TO USE [employer] CHAT FOR COMMUNICATION 7AM-7PM. IF I DO NOT RESPOND WITHIN 15 MINUTES, PLEASE PAGE ME/CALL THROUGH THE PRODUCTION LINE MECHANIC. FROM 7PM-7AM, PLEASE PAGE [phone](COVR) Code Status: Full Code Barriers to Discharge: NSTEMI Expected Discharge Date: 2-3 days Discharge Destination: home Overview Patient is seen for evaluation and management of chest pain. Subjective Patient was examined at bedside resting comfortably. He presented overnight to ED after transfer from [place]. He states that he had crushing chest [...] Principal Problem: NSTEMI (non-ST elevated myocardial infarction) ([facility]) Active Problems: Coronary atherosclerosis Essential hypertension History of coronary artery bypass surgery Mixed hyperlipidemia Stage 3 chronic kidney disease (CMS/HCC) Chest pain Type 2 diabetes mellitus with hyperglycemia ([facility]/HCC) PVD (peripheral vascular disease) ([facility]) Carotid stenosis, asymptomatic Assessment and Plan Lani Lizama is a 73 year old male with a past medical history of CAD with 9 stents, 5 vessel CABG, HTN, HLD, DM2, third degree AV block with pacemaker/AICD presented as a transfer from [place] ED with worsening crushing, radiating chest pain. Patient is being admitted to [facility] and cardiology has been consulted. [...] subcutaneous, Nightly isosorbide mononitra (more content not included)...[facility]11-14-2024 NoteHospital Medicine History and Physical 02/13/2024 3:40 AM THE HOSPITALIST TEAM PREFERS TO USE [employer] FOR NON-URGENT COMMUNICATION 7AM-7PM. IF I DO NOT RESPOND WITHIN 20 MINUTES OR URGENT MATTERS, PLEASE CALL THROUGH THE PRODUCTION LINE MECHANIC. FROM 7PM-7AM, PLEASE PAGE [phone](COVR). Chief Complaint No chief complaint on file. History of Present Illness Lani Lizama is an 73 y.o. male who came from Transferred from [facility] with NSTEMI with NSTEMI. 71-year-old gentleman [...] on that. Patient was transferred from [facility] to [facility] where he was seen for chest pain that has been going on for most of the day causing him to take nitroglycerin on 5 separate incidences and with intensification of the chest pain at shortening intervals that caused him to call the ambulance. At [facility] workup did show that patient had rising troponins initial 1 was 23 and then 85 isa intensity troponin. There was no mention change on the EKG as was reported to me by the ER physician Dr. Lagos at [facility]. Other workup that was done at [facility] included basic metabolic panel that showed [...] as above. The ER physician from [facility] had spoken to our truck farmer here who accepted the patient for transfer to [facility] for possible trip to the [employer] very early this morning depending on the [...] Principal Problem: NSTEMI (non-ST elevated myocardial infarction) ([facility]/HCC) Active Problems: Coronary atherosclerosis Essential hypertension History of coronary artery bypass surgery Mixed hyperlipidemia Stage 3 chronic kidney disease (CMS/HCC) Chest pain Type 2 diabetes mellitus with hyperglycemia ([facility]/HCC) PVD (peripheral vascular disease) ([facility]) Carotid stenosis, asymptomatic Assessment and Plan PLAN OF CARE: 71-year-old gentleman with very profuse history of cardiovascular disease including prior CAD with stents and CABG as well as hypertension and HLD comes seen with acute NSTEMI. Patient is being admitted to [facility] and cardiology has been consulted with possible trip to the [employer] at the earliest possible time by cardiology. [...] be -Consult cardiology (done) (more content not included)...[facility]10-24-2024 History of Present illness Narrative* Kenneth Tavera, [...] has only been using prescribed or recommended bnxk-vie-hvschge cream with some improvement. Patient also has longstanding history of multiple MIs and cardiac history Allergies: Allergies Allergen Reactions Other Other Reaction(s): Unknown Received name: Nkda Past Medical History: Past Medical History: Diagnosis Date Diabetic retinopathy ([facility]/HCC) HTN (hypertension) ([facility]) Hypercholesteremia ([facility]) [place] (myocardial infarction) ([facility]) 2021 Two total: 02/20, 03/22 Type 1 diabetes mellitus ([facility]) Medications: Current Outpatient Medications: ALPRAZolam (Xanax) 0.5 [...] in the morning., Disp: , Rfl: HYDROcodone-acetaminophen ([place]) 5-325 MG tablet, TAKE 1 TABLET BY [...] Strain: Low Risk (09/26/2023) Received from [facility] Overall Financial Resource Strain (CARDIA) Difficulty of Paying Living Expenses: Not very hard Food Insecurity: No Food Insecurity (09/26/2023) Received from [facility] Hunger Vital Sign Within the past 12 months, you worried that your food would run out before you got the money to buymore.: Never true Ran Out of Food in the Last Year: Not on file Transportation Needs: No Transportation Needs (09/26/2023) Received from [facility] Transportation In the past 12 months, has lack of transportation kept you from medical appointments or from getting medications?: No Lack of Transportation (Non-Medical): Not on file Physical Activity: Not on file Stress: Not on file Social Connections: Not on file Intimate Partner Violence: Unknown (09/26/2023) Received from [facility] Humiliation, Afraid, Rape, and Kick questionnaire Fear of Current or Ex-Partner: No Emotionally Abused: Not on file Physically Abused: Not on file Sexually Abused: Not on file Housing Stability: Low Risk (09/26/2023) Received from [facility] Housing Stability Vital Sign Unable [...] and negative PT pedal pulses NEURO: 5.07 Hartselle Chun monofilament test diminished to digits and forefoot bilaterally 125Hz tuning fork diminished to 1st MPJ bilaterally ORTHO: Positive pain on palpation to nails 1 through 10 ASSESSMENT 1. Diabetes 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, without long-term current use of insulin ([facility]) 2. Pain due to onychomycosis of [...] him Kenneth Tavera DPM documented in this encounterRipley County Memorial [id number] Evaluation note* Encounter Date Diagnosis Assessment Notes Treatment Notes Treatment Clinical Notes Apr, Chronic HFrEF (heart failure with reduced ejection fraction) (ICD-10 - I50.22) [employer] Other [id number] Evaluation note* Encounter Date Diagnosis Assessment Notes [...] age/comorbidities 2. Blood glucose levels according to [facility] cgm download 02/27/2023- 023: Average glucose 134. [...] material was printed on [employer]. Mar, terminal carman current use of insulin (ICD-10 - Z79.4) Mar, Hyperlipidemia (ICD-10 - E78.5) High cholesterol material was printed 05/2022 ldl 69- on statin. Mar, BMI 27.0-27.9,adult (ICD-10 - Z68.27) Eating healthy: tips to make it easier material was printed [employer] Other 2023 Evaluation note* Encounter Date Diagnosis Assessment Notes Treatment Notes Treatment Clinical Notes Jan, Chronic HFrEF (heart failure with reduced ejection fraction) (ICD-10 - I50.22) [employer] Other 10-09-2023 Evaluation note* Encounter Date Diagnosis [...] Continue statins. Monitor LFTs and lipid profile. [employer] Other 10-06-2023 Evaluation note* Encounter Date Diagnosis Assessment Notes Treatment Notes Treatment Clinical Notes Dec, Ground glass opacity present on imaging of lung (ICD-10 - R91.8) CT: RUL, RML - 12/2022Dec, Pulmonary nodule (ICD-10 - R91.1) CT: 7mm RML nodule - 12/2022 [employer] Other 10-03-2023 Evaluation note* Encounter Date Diagnosis Assessment Notes Treatment Notes Treatment Clinical Notes Dec, Stage 3b chronic kidney disease (ICD-10 - N18.32) [facility] [employer] Other 10-02-2023 Evaluation note* Encounter Date Diagnosis [...] risk for cerebrovascular and cardiovascular disease. Dec, snf current use of insulin (ICD-10 [...] be contributing - must discuss w/ Cardiology [employer] Other 07-03-2023 Evaluation note* Encounter Date Diagnosis Assessment Notes Treatment Notes Treatment Clinical Notes Sep, ASHD (arteriosclerotic heart disease) (ICD-10 - I25.10) [employer] Other 06-21-2023 Evaluation note* Encounter Date Diagnosis Assessment Notes Treatment Notes Treatment Clinical Notes Aug, ASHD (arteriosclerotic heart disease) (ICD-10 - I25.10) [employer] Other 06-02-2023 Evaluation note* Encounter Date Diagnosis [...] (current) use of insulin (ICD-10 - Z79.4) [employer] Other 05-11-2023 Evaluation note* Encounter Date Diagnosis Assessment Notes Treatment Notes Treatment Clinical Notes July, Ground glass opacity present on imaging of lung (ICD-10 - R91.8) CT: RML,RUL infiltrate - 12/2021, CT: RML,RUL improved - 03/2022 CT: RML, RUL, GGO improved - 07/2022 [employer] Other 04-03-2023 Evaluation note* Encounter Date Diagnosis [...] D and PTH. Advised low phosphorus diet. [employer] Other 03-30-2023 Evaluation note* Encounter Date Diagnosis [...] (ICD-10 - Z12.5) Yearly PSA and ABDELRAHMAN [employer] Other 03-28-2023 Evaluation note* Encounter Date Diagnosis [...] 2. Blood glucose levels stable. According to [facility] cgm download 06/13/2022- 3: Average glucose 190. [...] hypertension material was printed on diony. May, terminal carman current use of insulin (ICD-10 - Z79.4) May, Hyperlipidemia (ICD-10 - E78.5) High cholesterol material was printed 05/2022 ldl 69- on statin. May, BMI 27.0-27.9,adult (ICD-10 - Z68.27) Eating healthy: tips to make it easier material was printed [employer] Other 02-25-2023 Evaluation note* Encounter Date Diagnosis Assessment Notes Treatment Notes Treatment Clinical Notes May, Abnormality of lung on CXR (ICD-10 - R91.8) [employer] Other 12-20-2022 Evaluation note* Encounter Date Diagnosis [...] 2. Blood glucose levels stable. According to [facility] cgm download 03/07/2022-03/20/20 22: Average glucose 144. Above 250-0%, >180- 15%, 70-180-85%, <70-0%, <54-0%. CV 24.3%. Reviewed download with pt, no incidence of hypoglcyemia noted. Glucose rise between 12-6pm. D/t current shortage of ozempic, recommend pt reduce dose to 0.5mg once weekly until shipment recieved [facility], then increase to 1mg once weekly. [...] last visit, continue with weight loss efforts [employer] Other 11-10-2022 Evaluation note* Encounter Date Diagnosis Assessment Notes Treatment Notes Treatment Clinical Notes Jan, Diabetes mellitus with chronic kidney disease (ICD-10 - E11.22) 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 DISCHARGE INSTRUCTIONS FOR CARDIAC FUEL CELL ENGINEER PHONE NUMBER OF YOUR PHYSICIAN: [phone] PROCEDURE: Heart Cath The following instructions have [...] cold, numb, blue or white, call the truck farmer immediately. 4. ACTIVITY: You are advised to [...] the instructions on the bottle. [facility] is not responsible for incorrect [...] signed by Gagan Shahid DO> 01/17/22 1502 [facility] Work Phone: 1(708) 492-756910-19-2022 Progress note Author Luis Alfredo Borges [facility] January 17, 2022 11:47am Note Date/Time January 17, 2022 1 1:47am [facility] [address] [place] [address] Cardiology Progress Note Signed Patient: Lani Lizama MR#: [id number] : 1950 Acct:[id number] Age/Sex: 71 / M Adm Date: 2 Loc: 3T Room: [address] [place] [address] Type: ADM IN Attending Dr: Gagan Shahid [...] daily 3. Patient does have a primary truck farmer near his home in [place]. We willschedule him 1 follow-up visit in [facility] for left wrist check and also for counseling and reinforcement/referral to phase 2 monitored cardiac rehabilitation which the patient desires to perform in [place]. 4. Instructed the patient that he can [...] Documented By: Luis Alfredo Borges MD 01/17/22 1142 Signed By: <Electronically signed by Luis Alfredo Borges MD> 01/17/22 1147 [facility] Work Phone: 1(546) 303-495010-18-2022 Progress note Author Gagan Shahid [facility] January 16, 2022 4:09pm Note Date/Time January 16, 2022 4 :09pm [facility] [address] [place] [address] Hospitalist Progress Note Signed Patient: Lani Lizama MR#: [id number] : 1950 Acct:[id number] Age/Sex: 71 / M Adm Date: 2 Loc: Room: [address] [place] [address] Type: ADM IN Attending Dr: Gagan Shahid [...] <Electronically signed by Gagan Shahid DO> 01/16/22 1891 [facility] Work Phone: 1(795) 619-952310-18-2022 [facility] Consult note Author Luis Alfredo Borges [facility] January 16, 2022 10:24am Note Date/Time January 16, 2022 1 0:24am [facility] [address] [place] [address] Cardiology Consult Note Signed Patient: Lani Lizama MR#: [id number] : 1950 Acct:[id number] Age/Sex: 71 / M Adm Date: 2 Loc: Room: [address] [place] [address] Type: ADM IN Attending Dr: Gagan Shahid [...] history of PCI done here [facility] per Dr. Saldaña in May [...] activated EMS and was taken to [facility] emergency department. There the patient was [...] Lymph # (Auto) 1.0 1.6 (1.00-4.8) x10E3/uL [place] # (Auto) 0.4 0.8 (0.0-0.8) x10E3/uL Eos [...] by Luis Alfredo Borges MD> 01/16/22 1024 [facility] Work Phone: 1(769) 965-716310-17-2022 History and physical note Author Gagan Shahid [facility] January 15, 2022 6:56pm Note Date/Time January 15, 2022 6 :02pm [facility] [address] [place] [address] Hospitalist H&P Signed Patient: Lani Lizama MR#: [id number] : 1950 Acct:[id number] Age/Sex: 71 / M Adm Date: 2 Loc: Room: [address] [place] [address] Type: ADM IN Attending Dr: Gagan Shahid [...] cardiovascular evaluation [facility] for further management and cardiology [...] unless noted below or in [facility]PI [facility]?: Yes Medical History [...] % (Auto) 13.8 % (.) 01/15/22 15:00 [place] % (Auto) 6.1 % (.) 01/15/22 15:00 Eos % (Auto) 0.9 % (.) 01/15/22 15:00 Baso % (Auto) 0.5 % (.) 01/15/22 15:00 Neut # (Auto) 5.6 x10E3/uL (1.8-7.7) 01/15/22 15:00 Lymph # (Auto) 1.0 x10E3/uL (1.00-4.8) 01/15/22 15:00 [place] # (Auto) 0.4 x10E3/uL (0.0-0.8) 01/15/22 15:00 [...] signed by Gagan Shahid DO> 01/15/22 185 [facility] Work Phone: 1(724) 813-609009-19-2022 Evaluation note* Encounter Date Diagnosis Assessment Notes [...] Blood glucose levels above improved. According to [facility] cgm download 12/05/2021- 2: Average glucose 119. [...] last visit, continue with weight loss efforts [employer] Other 07-22-2022 Miscellaneous Notes* Telephone Encounter - Vee Day - 10/20/2021 9:42 AM EDT New CBC order. Vee Day documented in this encounterPaulding County Hospital04-18-2022 Evaluation note* Encounter Date Diagnosis [...] Blood glucose levels above improved. According to [facility] cgm download 07/04/2021-07/17/2021 : Average glucose 146. [...] material was printed on diony. Jun, terminal carman current use of insulin (ICD-10 - Z79.4) Jun, BMI 30.0-30.9,adult (ICD-10 - Z68.30) Eating healthy: tips to make it easier material was printed see above Jun, Bradycardia (ICD-10 - R00.1) asymptomatic- f/u with cardiology has upcoming apt. If symptomatic i.e. light headed notify sooner [employer] Other 03-21-2022 Evaluation note* Encounter Date Diagnosis Assessment Notes Treatment Notes Treatment Clinical Notes May, Gastro-esophageal reflux disease with esophagitis, without bleeding (ICD-10 - K21.00) [employer] Other 03-08-2022 Evaluation note* Encounter Date Diagnosis [...] His MBD parameters are within the goal. [employer] Other 02-21-2022 Evaluation note* Encounter Date Diagnosis Assessment Notes Treatment Notes Treatment Clinical Notes May, Diabetes mellitus with chronic kidney disease (ICD-10 - E11.22) [employer] Other 01-10-2022 Evaluation note* Encounter Date Diagnosis Assessment Notes Treatment Notes Treatment Clinical Notes Apr, Type 2 diabetes mellitus with hyperglycemia (ICD-10 - E11.65) [employer] Other 01-10-2022 Evaluation note* Encounter Date Diagnosis [...] Blood glucose levels above improved. According to [facility] cgm download 03/28/2021-04/10/19 22: Average glucose 167. [...] it easier material was printed see above [employer] Other 11-16-2021 Evaluation note* Encounter Date Diagnosis [...] His MBD parameters are within the goal. [employer] Other 10-05-2021 Evaluation note* Encounter Date Diagnosis [...] above target with increased variability. According to [facility] cgm download 12/07/2020-01/03/2021: Average glucose 135. Above [...] Bradycardia (ICD-10 - R00.1) Pt asymptomatic. 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 Pt has apt on Saturday next week. [employer] Other Chipj complaint+Reason for visit Narrative* Chief Complaint 4 month follow up Reason for Visit BMI 28.0-28.9,adult Dietary counseling and surveillance HTN (hypertension) Chronic HFrEF (heart failure with reduced ejection fraction) Chronic kidney disease [id number] HTN (hypertension) Hypercholesterolemia Ischemic cardiomyopathy Pulmonary nodule Type 2 diabetes mellitus with hyperglycemia [facility] Work Phone: Evaluation + Plan note No data available for this section General Surgery Luis Enrique Evaluation + Plan note Future Appointments Appointment Date:08/04/2024 10:00:00 AM Scheduled Provider: Location:[facility] Appointment Type:Urology FT Diagnostic Tests Pending * Urine Cytology ([facility]) 08/03/24 [facility] Evaluation + Plan note Future Appointments Appointment Date:11/23/2024 11:30:00 AM Scheduled Provider:Jason LARKIN MD Location:[facility] Appointment Type:URO Office Visit [facility] evaluation + Plan note Future Appointments Appointment Date:12/18/2024 09:45:00 AM Scheduled Provider:Jason LARKIN MD Location:[facility] Appointment Type:URO Office Visit [facility] evaluation noteNo InformationNoAppFirst Other evaluation note* Diagnosis Monoclonal gammopathy- Primary Monoclonal paraproteinemia documented in this encounter [facility]* Diagnosis Onset Date Resolution Status Non-ST elevation myocardial infarction (NSTEMI), initial care episode acute [facility] Work Phone: evaluation noteNo assessment information available [facility] Work Phone: evaluation note* Diagnosis Onset Date Resolution Status BMI 26.0-26.9,adult acute Dietary counseling and surveillance acute DM2 (diabetes mellitus, type 2) acute HLD (hyperlipidemia) acute HTN (hypertension) acute [facility] Work Phone: evaluation note* Diagnosis Onset Date Resolution Status BMI 26.0-26.9,adult acute Dietary counseling and surveillance acute DM2 (diabetes mellitus, type 2) acute HLD (hyperlipidemia) acute HTN (hypertension) acute Chronic HFrEF (heart failure with reduced ejection fraction) acute CKD (chronic kidney disease) stage 3, GFR 30-59 ml/min acute HLD (hyperlipidemia) acute [id number] acute Secondary hyperparathyroidism acute Type 2 diabetes 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 acute [facility] Work Phone: evaluation note* Diagnosis Onset Date Resolution Status Dietary counseling and surveillance acute HTN (hypertension) acute Chronic HFrEF (heart failure with reduced ejection fraction) acute CKD (chronic kidney disease) stage 3, GFR 30-59 ml/min acute [id number] acute Secondary hyperparathyroidism acute Type 2 diabetes 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 acute Chronic HFrEF (heart failure with reduced ejection fraction) acute Chronic kidney disease acute HTN (hypertension) acute Hypercholesterolemia acute Ischemic cardiomyopathy acut e Pulmonary nodule acute Type 2 diabetes mellitus with hyperglycemia acute Medicare annual wellness visit, subsequent noneactive Screening PSA (prostate specific antigen) noneactive [facility] Work Phone: Evaluation note* Diagnosis Onset [...] counseling and surveillance acute HTN (hypertension) acute [facility] Work Phone: evaluation note* Diagnosis Onset Date Resolution Status BMI 28.0-28.9,adult acute Dietary counseling and surveillance acute HTN (hypertension) acute Chronic HFrEF (heart failure with reduced ejection fraction) acute Chronic kidney disease acute [id number] acute HTN (hypertension) acute Hypercholesterolemia acute Ischemic cardiomyopathy acut e Pulmonary nodule acute Type 2 diabetes mellitus with hyperglycemia acute [facility] Work Phone: Evaluation note* Diagnosis Onset [...] disease) stage 3, GFR 30-59 ml/min acute [id number] acute Secondary hyperparathyroidism acute Type 2 diabetes 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 acute [facility] Work Phone: evaluation note* Diagnosis Onset Date Resolution Status Chronic HFrEF (heart failure with reduced ejection fraction) acute Chronic kidney disease acute HTN (hypertension) acute Hypercholesterolemia acute Ischemic cardiomyopathy acut e Pulmonary nodule acute Type 2 diabetes mellitus with hyperglycemia acute Chronic HFrEF (heart failure with reduced ejection fraction) acute CKD (chronic kidney disease) stage 3, GFR 30-59 ml/min acute [id number] acute Secondary hyperparathyroidism acute Type 2 diabetes 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 acute BMI 27.0-27.9,adult acute Dietary counseling and surveillance acute HTN (hypertension) acute [facility] Work Phone: Evaluation note* Diagnosis Xerosis cutis- Primary Other specified disease of sebaceous glands Diabetes 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, without long-term current use of insulin (CMS/HCC) Pain due to onychomycosis of toenails of both feet documented in this encounter [facility] HealthcareEvaluation note* Diagnosis Diabetes 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, without long-term current use of insulin (CMS/HCC)- Primary Pain due to onychomycosis of toenails of both feet documented in this encounter [facility] HealthcareEvaluation note* Diagnosis Diabetes 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, without long-term current use of insulin (HCC)- Primary Pain due to onychomycosis of toenails of both feet Xerosis cutis Other specified disease of sebaceous glands documented in this encounter [facility] HealthcareHistory general Narrative - Reported* Type Description [...] 11-25-16 Hospitalization History HEART STENT PLACED 03-20 [facility] [email or web address] Other History general [facility] [employer] Other History general Narrative - Reported* Type [...] 11-25-16 Hospitalization History HEART STENT PLACED 03-20 [employer] Other [employer] general Narrative - Reported* Type Description Date [...] 11-25-16 Hospitalization History HEART STENT PLACED 03-20 [employer] Other [employer] general Narrative - Reported* Type Description Date [...] 11-25-16 Hospitalization History HEART STENT PLACED 03-20 [employer] Other History general Narrative - Reported* Type [...] STENT PLACED 03-20 Hospitalization History SEE ABOVE [employer] Other History general Narrative - [employer] Other History general Narrative - Reported* Type [...] STENT PLACED 03-20 Hospitalization History SEE ABOVE [employer] Other History general Narrative - Reported* Type [...] STENT PLACED 03-20 Hospitalization History SEE ABOVE [employer] Other [employer] general Narrative - Reported* Type Description Date [...] STENT PLACED 03-20 Hospitalization History SEE ABOVE [employer] Other History general Narrative - Reported* Type [...] History SEE ABOVE Hospitalization History [place] 01/21 [employer] Other Hospital Discharge instructions No data available for this section General Surgery [facility] Discharge instructions Additional Instructions Monitor glucose levels as before. DISCHARGE INSTRUCTIONS FOR CARDIAC FUEL CELL ENGINEER PHONE NUMBER OF YOUR PHYSICIAN: [phone] PROCEDURE: Heart Cath The following instructions have [...] cold, numb, blue or white, call the truck farmer immediately. 4. ACTIVITY: You are advised to [...] the instructions on the bottle. [facility] is not responsible for incorrect prescription information provided by the patient during their visit. Do not stop your medications without consulting your health care provider. Please take the list with you to your next doctor's appointment. [facility] Work Phone: Hospital Discharge instructionsAmbulatory Orders* Referral to Podiatry Location: None Selected [facility] Work Phone: Hospital Discharge instructionsAmbulatory Orders* Referral to Urology Time Frame: 07/14/24, Location: None [facility] Work Phone: Progress note No data available for this section General Surgery Luis Enrique Reason for referral (narrative)No reason for referral information available[facility] Work Phone: Summary Purpose Family History Relationship Condition Age [...] stage 3, GFR 30-59 ml/min HLD (hyperlipidemia) [id number] Secondary hyperparathyroidism Type 2 diabetes mellitus with diabetic chronic kidney disease 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 6 month follow up MEDICARE WELLNESS Reason for Visit Dietary counseling a nd surveillance HTN (hypertension) Chronic HFrEF (heart failure with reduced ejection fraction) CKD (chronic kidney disease) stage 3, GFR 30-59 ml/min [id number] Secondary hyperparathyroidism Type 2 diabetes mellitus with [...] kidney disease) stage 3, GFR 30-59 ml/min [id number] Secondary hyperparathyroidism Type 2 diabetes mellitus with [...] kidney disease) stage 3, GFR 30-59 ml/min [id number] Secondary hyperparathyroidism Type 2 diabetes mellitus with diabetic chronic kidney disease BMI 27.0-27.9,adult Dietary counseling and surveillance HTN (hypertension) Chief Complaint Admit Date Amb Documentation February 18, 2024 9:11am CC Adult Risk Stratification February 172023 10:26am IP f/u [facility] chest pain-HIGH RISK Nov 2023 [...] 2024 9 :21am Dietary counseling and surveillance [facility] 2024 9:21am HTN (hypertension) April 30, 2024 [...] :19am Type 2 diabetes mellitus with hyperglyce [facility] April 16, 2024 8:19am BMI 28.0-28.9,adult April 30, 2024 9 :21am Dietary counseling and surveillance [facility] 2024 9:21am HTN (hypertension) April 30, 2024 [...] Amb Documentation August 21, 2024 1:11p m [facility] f/u August 25, 2024 11:31 [...] nonproliferative diabetic retinopathy August 25, 2024 11:31am Chief Complaint Admit Date Amb Documentation July 16, 2024 9:0 8am TB ER; blood in urine-HIGH RISK July 012024 11:19am 3 month August 03, 2024 9:17am Amb Documentation August 21, 2024 1:11p m [facility] f/u August 25, 2024 11:31 am Unknown [...] nonproliferative diabetic retinopathy August 25, 2024 11:31am Chief Complaint Admit Date 3 month August 03, 2024 9:17am Amb Documentation August 21, 2024 1:11p m [facility] f/u August 25, 2024 11:31 am Unknown September 21, 2024 9:25 am Amb Documentation October 15, 2024 10:1 9am Unknown October 26, 2024 8:18 am Reason for Visit Admit Date Dietary counseling and surveillance August 03, 2024 [...] nonproliferative diabetic retinopathy August 25, 2024 11:31am Chief Complaint Admit Date 3 month August 03, 2024 9:17am Amb Documentation August 21, 2024 1:11p m [facility] f/u August 25, 2024 11:31 am Unknown September 21, 2024 9:25 am Amb Documentation October 15, 2024 10:1 9am Unknown October 26, 2024 8:18 am [facility] f/u October 27, 2024 11:3 1am Reason for Visit Admit Date Dietary counseling and surveillance August 03, 2024 [...] nonproliferative diabetic retinopathy August 25, 2024 11:31am Chronic HFrEF (heart failure with reduce d ejection fraction) October 27, 2024 11:31am Chronic kidney disease October 27, 2024 1 1:31am HTN (hypertension) October 27, 2024 11:3 1am Hypercholesterolemia October 27, 2024 11: 31am Ischemic cardiomyopathy October 27, 2024 11:31am Type 2 diabetes mellitus wit h diabetic peripheral angiopathy without gangrene October 27, 2024 11:31am Type 2 diabetes mellitus with hyperglyce dimple October 27, 2024 11:31am Type 2 diabetes mellitus wit h severe nonproliferative diabetic retinopathy October 27, 2024 11:31am Chief Complaint Admit Date Amb Documentation August 21, 2024 1:11p m [facility] f/u August 25, 2024 11:31 am Unknown September 21, 2024 9:25 am Amb Documentation October 15, 2024 10:1 9am Unknown October 26, 2024 8:18 am [facility] f/u October 27, 2024 11:3 1am 3 month- METER November 10, 2024 9: 22am Reason for Visit Admit Date Chronic HFrEF [...] nonproliferative diabetic retinopathy August 25, 2024 11:31am Anemia October 27, 2024 11:3 1am Chronic HFrEF (heart failure with reduce d ejection fraction) October 27, 2024 11:31am Chronic [...] 27, 2024 11:31am Dietary counseling and surveillance Aug 2024 9:22am HTN (hypertension) November 10, 2024 9: 22am BMI 31.0-31.9,adult November 10, 2024 9: 22am DM2 (diabetes mellitus, type 2) October 302024 9:22am HLD (hyperlipidemia) November 10, 2024 9 :22am Scab November 10, 2024 9: 22am Chief Complaint Admit Date Unknown September 21, [...] 2024 11:31am Dietary counseling and surveillance Augu st 2024 9:22am HTN (hypertension) November 10, 2024 [...] with hyperglyce dimple December 01, 2024 8:48am Additional Source Comments (unrecognized sect ion and content) No Status Records FoundNo Status Records FoundNo Status Records FoundNo Status Records FoundNo Status Records FoundNo Status Records FoundNo Status Records FoundNo Status Records Found INFORMATION SOURCE (unrecogn ized section and content) DATE CREATED AUTHOR 11/29/2018 [facility] DATE CREATED AUTHOR AUTHOR'S ORGANIZ ATION 10/25/2021 [facility] DATE CREATED AUTHOR AUTHOR'S ORGANIZ ATION 08/13/2022 [facility] DATE CREATED AUTHOR AUTHOR'S ORGANIZ ATION 08/12/2024 [facility] DATE CREATED AUTHOR AUTHOR'S ORGANIZ ATION 09/25/2024 [facility] DATE CREATED AUTHOR AUTHOR'S ORGANIZ ATION 10/28/2024 [facility] DATE CREATED AUTHOR AUTHOR'S ORGANIZ ATION 11/24/2024 [facility] DATE CREATED AUTHOR AUTHOR'S ORGANIZ ATION 11/26/2024 [facility] REASON FOR VISIT (unrecogniz ed section [...] Active Start: 2024 End: September 21, 2024 Team Status: Active Member Role Status Dates Jackson Mcmanus MD Attending Provider Active Start: September 21, 2024 Team Status: Active Member Role Status Dates Outside Provider Attending Provider Active Start : September 26, 2024 Team Status: Active Member Role Status Dates Harley Crespo DO Primary Care Provider Active Start: October 11, 2024 Lyssa Alcantar DO Attending Provider Active Start: October 11, 2024 Team Status: Active Member Role Status Dates Harley Crespo DO Primary Care Provider Active Start: October 12, 2024 Meghan Elizalde MD Attending Provider Active Sta rt: October 12, 2024 Team Status: Active Member Role Status Dates Meghan Elizalde MD Attending Provider Active Sta rt: October 13, 2024 Team Status: Active Member Role Status Dates Meghan Elizalde MD Attending Provider Active Sta rt: October 14, 2024 Team Status: Active Member Role Status Dates Codi Easley CMA Attending Provider Active Start: October 15, 2024 Team Status: Inactive Member Role Status Dates Jackson Mcmanus MD Attending Provider Active Start: October 26, 2024 End: October 26, 2024 Team Status: Active Member Role Status Dates Harley Crespo DO Primary Care Provider Active Start: October 26, 2024 Jackson Mcmanus MD Attending Provider Active Start: October 26, 2024 Team Status: Inactive Member Role Status Dates Harley Crespo DO Primary Care Provider Active Start: October 27, 2024 End: October 27, 2024 Harley Crespo DO Attending Provider Active Sta rt: October 27, 2024 End: October 27, 2024 Team Status: Active Member Role Status Dates Harley Crespo DO Primary Care Provider Active Start: November 09, 2024 Kingsley Woods MD Attending Provider Active Start : November 09, 2024 Team Status: Inactive Member Role Status Dates Harley Crespo DO Primary Care Provider Active Start: November 10, 2024 End: November 10, 2024 Viky Kwong APRN Attending Provider Active Start: November 10, 2024 End: November 10, 2024 Team Status: Inactive Member Role Status Dates Harley Crespo DO Primary Care Provider Active Start: December 01, 2024 End: December 01, 2024 Harley Crespo , DO Attending Provider Active Sta rt: December 01, 2024 End: December 01, 2024 Team Status: Active Member Role Status [...] 25, 2024 End: August 25, 2024 Harley Crespo DO Attending Provider Active Sta rt: August 25, 2024 End: August 25, 2024 Team Status: Active Member Role Status Dates Harley Crespo DO Primary Care Provider Active Start: August 27, 2024 Harley Crespo DO Attending Provider Active Sta rt: August 27, 2024 Team Status: Inactive Member Role Status Dates NON STAFF Attending Provider Active Start: 2024 End: September 21, 2024 Team Status: Active Member Role Status Dates Jackson Mcmanus MD Attending Provider Active Start: September 21, 2024 Team Status: Active Member Role Status Dates Outside Provider Attending Provider Active Start : September 26, 2024 Team Status: Active Member Role Status Dates Harley Crespo DO Primary Care Provider Active Start: October 11, 2024 Lyssa Alcantar , Attending Provider Active Start: October 11, 2024 Team Status: Active Member Role Status Dates Harley Crespo DO Primary Care Provider Active Start: October 12, 2024 Meghan Elizalde MD Attending Provider Active Sta rt: October 12, 2024 Team Status: Active Member Role Status Dates Meghan Elizalde MD Attending Provider Active Sta rt: October 13, 2024 Team Status: Active Member Role Status Dates Meghan Elizalde MD Attending Provider Active Sta rt: October 14, 2024 Team Status: Active Member Role Status Dates Codi Easley CMA Attending Provider Active Start: October 15, 2024 Team Status: Inactive Member Role Status Dates Jackson Mcmanus MD Attending Provider Active Start: October 26, 2024 End: October 26, 2024 Team Status: Active Member Role Status Dates Harley Crespo DO Primary Care Provider Active Start: October 26, 2024 Jackson Mcmanus MD Attending Provider Active Start: October 26, 2024 Team Status: Inactive Member Role Status Dates Harley Crespo DO Primary Care Provider Active Start: October 27, 2024 End: October 27, 2024 Harley Crespo DO Attending Provider Active Sta rt: October 27, 2024 End: October 27, 2024 Team Status: Active Member Role Status Dates Harley Crespo DO Primary Care Provider Active Start: November 09, 2024 Kingsley Woods MD Attending Provider Active Start : November 09, 2024 Team Status: Inactive Member Role Status Dates Harley Crespo DO Primary Care Provider Active Start: November 10, 2024 End: November 10, 2024 Viky Kwong PLATING FOREMAN Attending Provider Active Start: November 10, 2024 End: November 10, 2024 Team Status: Inactive Member Role Status Dates Harley Crespo DO Primary Care Provider Active Start: August 03, 2024 End: August 03, 2024 Viky Kwong , PLATING FOREMAN Attending Provider Active Start: August 03, 2024 End: August 03, 2024 Team Status: Active Member Role Status [...] July 02, 2023 End: July 02, 2023 Legal Nurse Consultant Relationship Specialty Start Date End Date Harley Crespo DO [address] [place] [address] PCP - General Internal Medicine 07/18/18 Team Status: Inactive Member Role Status Dates Harley Crespo DO Primary Care Provider Active Gagan Shahid DO Admit Provider, Attending Provider Active Team Status: Active Member Role Status Dates Harley Crespo DO Primary Care Provider Active Ryan Garrett APRN METER RECORD CLERK-C Active Valerie Gallegos PA-C Active Viky Kwong APRN Attending Provider Active Team Status: Inactive Member Role Status Dates Viky Kwong APRN Attending Provider Active Start: March 12, 2023 End: March 12, 2023 Team Status: Inactive Member Role Status Dates Harley Crespo DO Primary Care Provider Active Start: March 12, 2023 End: March 12, 2023 Ryan Garrett APRN METER RECORD CLERK-C Active Sta rt: March 12, 2023 End: [...] January 23, 2024 End: January 23, 2024 Legal Nurse Consultant Relationship Specialty Start Date End Date Harley Crespo MD [address] [place] [id number] PCP - General Internal Medicine 11/07/23 Legal Nurse Consultant Relationship Specialty Start Date End Date Harley Crespo MD [address] [place] [id number] PCP - General Internal Medicine 11/07/23 Legal Nurse Consultant Relationship Specialty Start Date End Date Harley Crespo MD [address] [place] [facility] [address] PCP - General Internal Medicine 11/07/23 Team Status: Inactive Member Role Status Dates Harley Crespo DO Primary Care Provide r, Attending Provider Active Start: August 25, 2024 End: August 25, 2024 Team Status: Active Member Role Status Dates Harley Crespo DO Primary Care Provide r, Attending Provider Active Start: August 27, 2024 Legal Nurse Consultant Relationship Specialty Start Date End Date Harley Crespo DO [address] [place] [id number] PCP - General Internal Medicine 11/07/23 Legal Nurse Consultant Relationship Specialty Start Date End Date Harley Crespo DO [address] [place] [address] PCP - General Internal Medicine 11/07/23 Team Status: Inactive Member Role Status Dates Harley Crespo DO Primary Care Provider Active Start: July 27, 2024 End: July 27, 2024 Harley Crespo DO Attending Provider Active Sta rt: July 27, 2024 End: July 27, 2024 Team Status: Inactive Member Role Status Dates Harley Crespo DO Primary Care Provider Active Start: December 01, 2024 End: December 01, 2024 Harley Crespo DO Attending Provider Active Sta rt: December 01, 2024 End: December 01, 2024 Source Comments (unrecognize d section and content) In the event this informatio n is protected by the Federal Confidentiality of Alcohol and Drug Abuse Patient Records regulations: The Federal rules restrict any use of the information to criminally investigate or prosecute any alcohol or drug abuse patient.[facility] Goals (unrecognized section and content) [...] BE BASED ON THE PRIMARY CLINICAL RECORDS. [facility]. provides no warranty or guarantee of the accuracy or completeness of information in this document.
[2024-12-02 12:37] LABS: Cast Seen? NONE SEEN #/LPF (NONE SEEN); Crystals Seen? None Seen #/HPF (None Seen); Urine Culture Indicated ALREADY ORDERED
== END 2024-12-02 08:57 | disposition home or self-care (01) ==
LOC: LAB 08:57
PROVIDERS: PCP Internal Medicine; Visit Provider Internal Medicine
DX: R35.89 Other polyuria (principal)
CPT/HCPCS: 87086; 87088; 87186

== ENCOUNTER 2025-01-15 11:31 | Outpatient (OUT) | payer MEDICARE, OTHER, SELFPAY ==
--- OUTSIDE RECORDS SUMMARY | 2025-01-15 11:37 | XMS_ITS | Encounter Summary ---
Author Organization [facility] Address [address] [place] [address] Care Team Providers Care Junior Web Developer Name Role Phone Harley Goodman DO Primary Care Provider [phone] Encounter Details Date Type Department Care Team (Late st Contact Info) Description 07/16/2024 Orders Only [facility] [address] [place] [address] Mannie Armijo MD [address] [place] [address] Social History Tobacco Use Types Packs/Day Years Used Date Smoking Tobacco: Former Cigarettes Smokeless Tobacco: Never Alcohol Use Standard Drinks/Week Comments Never 0 (1 standard drink = 0.6 oz pur e alcohol) [facility] Utilities Answer Date Recorded In the past 12 months has e [employer], gas, oil, or water [employer] threatened to shut off services in your [...] any time in the past 12 m [facility], were you homeless or living in a jail (including now)? No 02/13/2024 Hunger Vital Sign [...] Care Team (Late st Contact Info) Description 03/18/2025 9:40 AM EST Office Visit [facility] [address] [place] [address] Bozena Santacruz, LANG INTERPRETER [address] [place] [address] documented as of this encounter Procedures Procedure Name Priority Date/Time Associated Diagnosis Comments CARDIAC DEVICE CHECK - REMOTE - ICD Routine 07/16/2024 12:00 AM EDT documented in this encounter Results * Cardiac device check - Remote ICD (07/16/2024 12:00 AM EDT) Anatomical Region Laterality Modality Other 07/16/2024 us Mannie Armijo MD CV IMPLANTABLE CARDIAC DEVICE SC OCEDURES Final Result documented in this encounter Visit Diagnoses Not on filedocumented in this encounter Care Teams Junior Web Developer Relationship Specialty Start Date End Date Harley Goodman DO [address] [facility] [place] [address] PCP - General 03/02/22 documented as of this encounter
--- OUTSIDE RECORDS SUMMARY | 2025-01-15 11:37 | XMS_ITS | Clinical Summary ---
Author Organization [facility] Address [address] [place] [address] Phone Care Team Providers Care [employer] Linux Engineer Name Role Phone Unavailable Primary Care [...] 11/07/2001 Zoster Vaccines (1 of 2) 11/07/2001 Influenza Vaccine (#1) 2024 COVID-19 Vaccine (1 - 2024-2 6 season) 2024 RSV High Risk: (Elderly (60+ ) [...]
--- OUTSIDE RECORDS SUMMARY | 2025-01-15 11:37 | XMS_ITS | Encounter Summary ---
Author Organization [facility] Address [address] [place] [address] Care Team Providers Care Acidizer Water Well Name Role Phone Harley Goodman DO Primary Care Provider [phone] Encounter Details Date Type Department Care Team (Late st Contact Info) Description 09/16/2024 Orders Only [facility] Card[facility] Clinic [address] [place] [address] Fabricio Galindo MD [address] [place] [address] Social History Tobacco Use Types Packs/Day Years Used Date Smoking Tobacco: Former Cigarettes Smokeless Tobacco: Never Alcohol Use Standard Drinks/Week Comments Never 0 (1 standard drink = 0.6 oz pur e alcohol) [facility] Utilities Answer Date Recorded In the past 12 months has e [employer], gas, oil, or water [employer] threatened to shut off services in your [...] time in the past 12 m [facility], were you homeless or living in [...] Description 03/18/2025 9:40 AM EST Office Visit [facility] Heart at [facility] [address] [place] [address] Bozena Santacruz, METAL BASE BLOCKER [address] [place] [address] documented as of this encounter [...] on filedocumented in this encounter Care Teams Acidizer Water Well Relationship Specialty Start Date End Date Harley Goodman DO [address] [facility] [place] [address] PCP - General 03/02/22 documented as of this encounter
--- OUTSIDE RECORDS SUMMARY | 2025-01-15 11:37 | XMS_ITS | Encounter Summary ---
Author Organization [facility] Address [address] [place] [address] Care Team Providers Care Stringed Instrument Assembler Name Role Phone Harley Goodman DO Primary Care Provider [phone] Encounter Details Date Type Department Care Team (Late st Contact Info) Description 08/07/2024 Orders Only [facility] Cardiology Clinic [address] [place] [address] Fabricio Galindo MD [address] [place] [address] Social History Tobacco Use Types Packs/Day Years Used Date Smoking Tobacco: Former Cigarettes Smokeless Tobacco: Never Alcohol Use Standard Drinks/Week Comments Never 0 (1 standard drink = 0.6 oz pur e alcohol) [facility] Utilities Answer Date Recorded In the past 12 months has e [employer], gas, oil, or water [employer] threatened to shut off services in your [...] any time in the past 12 m [facility], were you homeless or living in a fci (including now)? No 02/13/2024 Hunger Vital Sign [...] Description 03/18/2025 9:40 AM EST Office Visit [facility] Heart at [facility] [address] [place] [address] Bozena Santacruz, REIMBURSEMENT REP [address] [place] [address] documented as of this encounter [...] on filedocumented in this encounter Care Teams Stringed Instrument Assembler Relationship Specialty Start Date End Date Harley Goodman DO [address] [facility] [place] [address] PCP - General 03/02/22 documented as of this encounter
--- OUTSIDE RECORDS SUMMARY | 2025-01-15 11:37 | XMS_ITS | Clinical Summary ---
Author Organization [employer] [facility] Address [id number] [address] [place] [address] Care Team Providers Care Sales Operations Assistant Name Role Phone Harley Goodman DO Primary Care Provider [phone] Allergies No known active allergies Medications carvedilol [...] on file Insurance COMMERCIAL MEDICARE Care Teams Sales Operations Assistant Relationship Specialty Start Date End Date Harley Goodman DO [facility] [place] [address] PCP - General Internal Medicine 02/14/18
--- OUTSIDE RECORDS SUMMARY | 2025-01-15 11:37 | XMS_ITS | Clinical Summary ---
Author Organization [facility] Address [address] [place] [address], [address] [place] [address] Care Team Providers Care Medical Superintendent Name Role Phone Unavailable Primary Care Provider [...]
--- OUTSIDE RECORDS SUMMARY | 2025-01-15 11:37 | XMS_ITS | Encounter Summary ---
Author Organization [facility] Address [address] [place] [address] Phone Care Team Providers Care Financial Operations Analyst Name Role Phone Unavailable Primary Care Provider Unavailabl e Encounter Details Date Type Department Care Team (Late st Contact Info) Description 01/16/2022 Orders Only [facility] [address] [place] [address] Conversion, Onbase Social History Tobacco Use Types [...]
--- OUTSIDE RECORDS SUMMARY | 2025-01-15 11:37 | XMS_ITS | Clinical Summary ---
Author Organization [facility] Address [address] [place] [address] Care Team Providers Care Waste Collection Driver Name Role Phone Harley Goodman DO Primary Care Provider [phone] Allergies No known active allergies Medications ALPRAZolam [...] daily. 180 tablet 3 04/22/19 24 Active cholecalciferol (Vitamin D3) 25 MCG (1000 [...] PAIN 100 tablet 2 10/17/19 25 Active hyoscyamine (Anaspaz,Levsin ) 0.125 mg tabletIndicatio ns:Malignant neoplasm of lateral wall of urinary bladder (CMS/HCC) Take 1 tablet (0.125 mg) by mouth every 4 (four) hours if needed for cramping for up to 10 days. 30 tablet 11/12/19 25 Active spironolactone (Aldactone) 25 mg tabletIndicatio ns:NSTEMI (non-ST elevated myocardial infarction) (CMS/HCC) TAKE 1 TABLET BY MOUTH EVERY DAY IN THE MORNING 90 tablet 3 12/31/19 25 Active spironolactone (Aldactone) 25 mg tabletIndicatio ns:NSTEMI (non-ST elevated myocardial infarction) (CMS/HCC) Take 1 tablet (25 mg) by mouth in the morning. 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 [...] (03/21/2022): Added automatically from request for surgery [id number] Gastroesophageal reflux disease 03/02/2022 Increased immunoglobulin 03/02/2022 [...] check diet Coronary artery disease invo lving nikolski coronary artery of nikolski heart 09/19/2011 Assessment & Plan (08/13/2024 1:28 PM EDT): As above Essential hypertension 09/19/2011 Resolved Problems Problem Noted Date Diagnosed Date Resolved Date Type 1 diabetes mellitus 09/19/2011 Encounters Date Type Department Care Team Description 12/30/2024 Refill [facility] Heart at [place] [address] [place] [address] Pinky Linares MD NSTEMI (non-ST elevated myocardial infarction) (CMS/HCC) 12/18/2024 12:15 PM EDT Ancillary Procedure [facility] Card[facility] [address] [place] [address] Pre-operative cardiovascular examination, ICD in place 12/18/[address] [facility] Card[facility] [address] [place] [address] Kevin Jacobs MD 12/03/2024 Refill [facility] Urology [address] [place] [address] Marquis Baltazar MD Malignant neoplasm of lateral wall of urinary bladder ([facility]/HCC); Urinary frequency 11/17/2024 5:55 AM EDT Ancillary Procedure [facility] Cardiology Clinic [address] [place] [address] Pre-operative cardiovascular examination, ICD in place 11/17/[address] [facility] Card[facility] Clinic [address] [place] [address] Fabricio Galindo MD 11/11/2024 8:58 AM EDT Anesthesia Event [facility] Main Operating Room [address] [place] [address] Xavier Ulrich MD Chakrabarty, Annapoorna, MD 11/11/2024 8:30 AM EDT - 11/11/2024 10:00 AM EDT Surgery [facility] Main Operating Room [address] [place] [address] Last Mcmanus MD TURBT (TRANSURETHRAL RESECTION OF BLADDER TUMOR) [35067 (CPT )] 11/11/2024 6:35 AM EDT - 11/11/2024 11:40 AM EDT Hospital Encounter [facility] Main Operating Room [address] [place] [address] Last Mcmanus MD Malignant neoplasm of lateral wall of urinary bladder (CMS/HCC) (Primary Dx); Malignant neoplasm of urinary bladder, unspecified site (CMS/HCC); Urinary frequency Discharge Disposition: Home or Self Care () 11/11/2024 Travel 11/02/2024 Travel 11/02/2024 [place] [address] Pinky Linares MD MEDICATION HOLD (SPOKE WITH DR LINARES OK TO HOLD PLAVIX FOR 5 DAYS BUT TO CONTINUE ASA. LAVERN GRIFFIN NOTIFIED OK WITH CLINIC) 11/01/2024 Refill [facility] Urology [address] [place] [address] Last Mcmanus MD Bladder spasms 10/19/2024 10:45 AM EDT Ancillary Procedure [facility] [place] [address] Pre-operative cardiovascular examination, ICD in place 10/18/[address] [facility] Card[facility] [address] [place] [address] Fabricio Galindo MD 10/16/2024 Telephone [facility] Urology [address] [place] [address] Trice Rodrigez MA 10/16/2024 Refill [facility] [address] [facility] [place] [address] Pinky Linares MD Chest pain, unspecified type (Primary Dx) 10/15/2024 Refill [facility] [address] [place] [facility] [place] [address] Kevin Jacobs MD NSTEMI (non-ST elevated myocardial infarction) (CMS/HCC) (Primary Dx) from Last 3 Months Immunizations Immunization Administration Dates Next Due Influenza Whole 01/19/2008 Influenza, High Dose Seasonal, Preservative Free 01/16/2017 Influenza, Seasonal, Quadrivalent, Adjuvanted Influenza, injectable, quadrivalent, preservativ e free 11/30/2016 Influenza, seasonal, injectable 01/23/2012,12/13 Influenza, trivalent, adjuvanted 01/17/2018 Novel [id number], preservative-free 01/27 Pneumococcal Conjugate PCV 13 11/14/2016 [...] = 0.6 oz pur e alcohol) [facility] Utilities Answer Date Recorded In the past 12 months has e [employer], gas, oil, or water [employer] threatened to shut off services in your [...] 11/11/2024 7:15 AM EDT Plan of Treatment Upcoming Encounters Date Type Department Care Team (Late st Contact Info) Description 03/18/2025 9:40 AM EST Office Visit [facility] Heart at [facility] [address] [place] [address] Bozena Santacruz, MASK DESIGN ENGINEER [address] [place] [address] Health Maintenance Due Date Last Done Comments CT Colonography 1950 Diabetes: Hemoglobin A1C 1950 FOBT 1950 Medicare Annual Wellness (AWV) 1950 Sigmoidoscopy 1950 Diabetes: Retinopathy Screening 11/07/1961 Depression Screening 1963 Adult Tetanus 11/07/1973 Zoster Vaccines (1 of 2) 11/07/2001 FIT 08/15/2021 08/15/2020 FIT-DNA 08/16/2023 08/15/2020 COVID-19 Vaccine ( season) 2024 02/21/2021, 06/21/2020, 05/30/2020 Fall Risk Screening 08/14/2025 08/14/2024 Colonoscopy 07/11/2031 07/10/2021 Colorectal Cancer Screening 07/11/2031 Pneumococcal Vaccine: 50+ Years Completed 01/17/2018, 11/14/2016, 04/02/2016 Influenza Vaccine Completed 12/01/2024, , 12/15/2021, Additional history exists HIB Vaccines Aged Out [...] this topic Medical Devices Implanted Type Area Development Lead Device Identifier Shelf Expiration Date Model / Serial / Lot Vigilant X4 Tent Worker-D Is-1/Df4/Is4 Implanted:Qty: 1 on 02/12/2023 by Kevin Jacobs MD at [facility] WAITER/WAITRESS FORMAL-D ICD [employer] [id number] 09/09/2024 [id number] / [id number] / Stent,Synergy Mr 4.00 X 28 - [id number] Implanted:Qty: 1 on 09/27/2023 by Petar Foreman MD at [facility] Drug Eluting Stent [employer] [id number] 04/09/2024 [id number] / / [id number] Ingevity+ Is-1 Bi Positive Fix Ra/Rv 52cm Implanted:Qty: 1 on 03/21/2022 by Kevin Jacobs MD at [facility] Lead [employer] [id number] 03/09/2024 7841 / [id number] / Ingevity+ Is-1 Bi Positive Fix Ra/Rv 45cm Implanted:Qty: 1 on 03/21/2022 by Kevin Jacobs MD at [facility] Lead [employer] [id number] 01/02/2024 7840 / [id number] / [place] 4-Front S Active Fix Single Coil 59cm Implanted:Qty: 1 on 02/12/2023 by Kevin Jacobs MD at [facility] Lead [employer] [id number] 01/06/2025 0672 / [id number] / Lead,Acuity X4,Spiral L - [id number] - [id number] Implanted:Qty: 1 on 02/12/2023 by Kevin Jacobs MD at [facility] Lead [employer] [id number] 01/13/2025 4677 / [id number] / Pacer,Ricky ,Mri Dr Castelan - [id number] - [id number] Implanted:Qty: 1 on 03/21/2022 by Kevin Jacobs MD at [facility] Pacemaker [employer] 02/05/2024 L331 / [id number] / [id number] Description:Mode: DDD RYTHMIQ: OFF LRL / MTR [...] CARDIAC DEVICE CHECK CHECK - REMOTE Routine 12/22/2024 11:58 AM EDT Pre-operative cardiovascular examination, ICD in place CARDIAC DEVICE CHECK - REMOTE - ICD Routine 12/18/2024 12:00 AM EDT CARDIAC DEVICE CHECK CHECK - REMOTE Routine 11/19/2024 1:17 PM EDT Pre-operative cardiovascular examination, ICD in place CARDIAC DEVICE CHECK - REMOTE - ICD Routine 11/17/2024 12:00 AM EDT HISTOLOGY - TISSUE EXAM Routine 11/12/19 9:30 AM EDT Malignant neoplasm of urinary bladder, unspecified site (CMS/HCC) CT CYSTOURETHROSCOPY W/DEST &/RMVL MED BLADDER MARIO 11/11/2024 9:00 AM EDT Malignant neoplasm of urinary bladder, unspecified site (CMS/HCC) POCT GLUCOSE METER UNSOLICITED RESULTS Routine 11/11/2024 7:37 AM EDT CARDIAC DEVICE CHECK CHECK - REMOTE Routine 10/21/2024 2:52 PM EDT Pre-operative cardiovascular examination, ICD in place CARDIAC DEVICE CHECK - REMOTE ALERT - ICD Routine 10/18/2024 12:00 AM EDT from Last 3 Months Results * CARDIAC DEVICE CHECK - REMOTE - ICD (12/22/2024 11:58 AM EDT) Only the most recent of3 resultswithin the time period is included. us Kevin Jacobs MD CV IMPLANTABLE CARDIAC DEVICE CT OCEDURES Final Result CPACS * Cardiac device check - Remote ICD (12/18/2024 12:00 AM EDT) Only the most recent of2 resultswithin the time period is included. Anatomical Region Laterality Modality Other 12/18/2024 us Kevin Jacobs MD CV IMPLANTABLE CARDIAC DEVICE CT OCEDURES Final Result * Histology - tissue exam (11/11/2024 9:30 AM EDT) Case Report Surgical Pathology Case: [id number] Authorizing Provider: Last Mcmanus MD Collected: 11/11/2024 0930 Ordering Location: [facility] Main Operating Room Received: 11/11/2024 1319 Pathologist: Kevin Dawson MD Specimen: Urinary Bladder, bladder mass- left lateral wall 11/17/2024 3:56 PM EDT [facility] ([facility]) Final Diagnosis A. Urinary bladder, left lateral wall mass, transurethral resection: - Fragments of granulation tissue with necrotizing granulomatous inflammation and focal overlying benign urothelium. - No residual urothelial carcinoma identified. - Muscularis propria (detrusor muscle) is present in the specimen. 11/17/2024 3:56 PM EDT [facility] ([facility]) at 1556 EDT Clinical Information Post-Op Diagnoses C67.9 - Malignant neoplasm of urinary bladder, unspecified site (CMS/HCC) [ICD-10-CM] 11/17/2024 3:56 PM EDT [facility] ([facility]) Comment This case was review ed in intradepartmental consensus. 11/17/2024 3:56 PM EDT [facility] [...] toto in 4 cassettes. Marlene Beltre, Pathologists' Fire Pot Operator student 11/17/2024 3:56 PM EDT [facility] ([facility]) Microscopic Description Microscopic examination performed. Immunohistochemical stain for pancytokeratin was performed on a retail service representative block and shows no evidence of infiltrative carcinoma. The control is satisfactory. 11/17/2024 3:56 PM EDT [facility] ([facility]) Disclaimer The interpretation o f this case [...] under the Clinical Laboratory Improvement Amendments of 1997. 11/17/2024 3:56 PM EDT [facility] ([facility]) Tissue Urinary bladder structure / Unknown 11/11/2024 9:30 AM EDT 11/11/2024 1:19 PM EDT Comment:Pre-op diagnosis: Malignant neoplasm of urinary bladder, unspecified site (CMS/HCC) [C67.9] us Last Mcmanus MD LAB PATHOLOGY ORDERABLES Final R esult [facility] ([facility]) [address] [place], [place] [id number] * (ABNORMAL) POCT glucose meter (11/11/2024 7:37 AM EDT) Glucose POC 202(H) 70 - 105 mg/dL 11/11/2024 7:48 AM EDT [facility] ([facility]) Comment:tran Blood Capillary blood specimen / Unknown 11/11/2024 7:37 AM EDT 11/11/2024 7:48 AM EDT Narrative [facility] ([facility]) - 11/11/2024 7:48 AM EDT Waived Testing in the ED is performed under the ED CLIA certificate #[id number]. Last Mcmanus MD LAB BLOOD ORDERABLES Final Resul t Performing Organization Address City/[facility]/ZIP Co de Phone Number [facility]) [address] [place] [address] * Cardiac device check - Remote alert ICD (10/18/2024 12:00 AM EDT) Anatomical Region Laterality Modality Other 10/18/2024 Fabricio Galindo MD CV IMPLANTABLE CARDIAC DEVICE PROCEDURES Final Result from Last 3 Months Insurance MEDICARE Member Subscriber Plan / Payer (Ef fective 2016-Present) Name:Prem Ayoub Member ID:[id number] Relation to Subscriber:Self Name:Prem Ayoub Subscriber ID:[id number] Payer ID:[id number] Group ID:Not on file Type:Medicare Address: [facility] [place] [id number] MEDICAL CLIVE Advance Directives * Full Code (Latest Code [...] 12:52 PM 01/28/2023 8:05 PM Care Teams Waste Collection Driver Relationship Specialty Start Date End Date Harley Goodman DO [address] [place] [address] [place] [address] PCP - General 03/02/22
--- OUTSIDE RECORDS SUMMARY | 2025-01-15 11:37 | XMS_ITS | Encounter Summary ---
Author Organization [facility] Address [facility] [place] [id number] Care Team Providers Care Machine Bobbin Winder Name Role Phone Harley Goodman DO Primary Care Provider [phone] Source Comments In the event this information is protected by the Federal Confidentiality of Alcohol and Drug AbusePatient Records regulations: The Federal rules restrict any use of the information to criminally investigate or prosecute any alcohol or drug abuse patient.[facility] Encounter Details Date Type Department [...] on filedocumented in this encounter Care Teams Machine Bobbin Winder Relationship Specialty Start Date End Date Harley Goodman DO [address] [facility] [address] [place] [id number] PCP - General Internal Medicine 07/18/18 documented as of this encounter
--- OUTSIDE RECORDS SUMMARY | 2025-01-15 11:37 | XMS_ITS | Encounter Summary ---
Author Organization [facility] Address [address] [place] [address] Care Team Providers Care Flight Inspector Name Role Phone Harley Goodman DO Primary Care Provider [phone] Encounter Details Date Type Department Care Team (Late st Contact Info) Description 09/11/2024 Orders Only [facility] Cardiology Clinic [address] [place] [address] Kevin Jacobs MD [address] [place] [address] Social History Tobacco Use Types Packs/Day Years Used Date Smoking Tobacco: Former Cigarettes Smokeless Tobacco: Never Alcohol Use Standard Drinks/Week Comments Never 0 (1 standard drink = 0.6 oz pur e alcohol) [facility] Utilities Answer Date Recorded In the past 12 months has e [employer], gas, oil, or water [employer] threatened to shut off services in your [...] any time in the past 12 m [facility], were you homeless or living [...] Description 03/18/2025 9:40 AM EST Office Visit [facility] [address] [place] [address] Bozena Santacruz, SUPERVISOR POWDER AND PRIMER CANNING [address] [place] [address] documented as of this encounter Procedures Procedure Name Priority Date/Time Associated Diagnosis Comments CARDIAC DEVICE CHECK - REMOTE - ICD Routine 09/11/2024 12:00 AM EDT documented in this encounter Results * Cardiac device check - Remote ICD (09/11/2024 12:00 AM EDT) Anatomical Region Laterality Modality Other 09/11/2024 Kevin Jacobs MD CV IMPLANTABLE CARDIAC DEVICE [place] OCEDURES Final Result documented in this encounter Visit Diagnoses Not on filedocumented in this encounter Care Teams Flight Inspector Relationship Specialty Start Date End Date Harley Goodman DO [address] [facility] [address] PCP - General 03/02/22 documented as of this encounter
--- OUTSIDE RECORDS SUMMARY | 2025-01-15 11:37 | XMS_ITS | Clinical Summary ---
Author Organization [facility] Address [address] [place] [address] Care Team Providers Care Sculpture Instructor Name Role Phone Harley Goodman DO Primary Care Provider Allergies Active Allergy Reactions Criticality Noted Date [...] influenza vaccine, whole virus 01/19/2008 novel influenza (S5G1-06) vaccine, PF 01/27/2009 pneumococcal conjugate (PCV1 3) [...] Additional history exists Advance Directive Discussion 04/01/2024 Covid-19 Vaccine (3 - 2024-2 6 season) 2024 06/21/2020, 05/30/2020 Influenza Vaccine (#1) 2024 8, 01/16/2017, 11/30/2016, [...] - 8.0 g/dL 10/25/2020 10:27 AM EDT [facility] Albumin 4.3 3.9 - 4.9 g/dL 10/25/2020 10:27 AM EDT [facility] Calcium 9.1 8.5 - 10.2 mg/dL 10/25/2020 10:27 AM EDT [facility] Bilirubin, Total 0.7 0.2 - 1.3 mg/dL 10/25/2020 10:27 AM EDT [facility] Alkaline Phosphatase 98 38 - 113 U/L 10/25/2020 10:27 AM EDT [facility] AST 19 14 - 40 U/L 10/25/2020 10:27 AM EDT [facility] Glucose 191(H) 74 - 99 mg/dL 10/25/2020 10:27 AM EDT [facility] Comment: The [place] Diabetes Association (ADA) provides guidance for cutoff [...] Standards of Medical Care in Diabetes 2016, [place] Diabetes Association. Diabetes Care. 2016.39(Suppl 1). BUN 20 9 - 24 mg/dL 10/25/2020 10:27 AM EDT [facility] Creatinine 1.93(H) 0.73 - 1.22 mg/dL 10/25/2020 10:27 AM EDT [facility] Sodium 139 136 - 144 mmol/L 10/25/2020 10:27 AM EDT [facility] Potassium 4.2 3.7 - 5.1 mmol/L 10/25/2020 10:27 AM EDT [facility] Chloride 106(H) 97 - 105 mmol/L 10/25/2020 10:27 AM EDT [facility] CO2 22 22 - 30 mmol/L 10/25/2020 10:27 AM EDT [facility] Anion Gap 11 9 - 18 mmol/L 10/25/2020 10:27 AM EDT [facility] ALT 16 10 - 54 U/L 10/25/2020 10:27 AM EDT [facility] eGFR- 42 10/25/2020 10:27 AM EDT [facility] eGFR-All Other Races 35 . 10/25/2020 10:27 AM EDT [facility] Comment: eGFR (Estimated GFR) Units of measure: [...] us Agustin Walker MD LABORATORY Final Result [address] from Last 3 Months or Most Recently Relevant to Health Maintenance Insurance MEDICARE MMO MEDICARE SUPPLEMENT Care Teams Sculpture Instructor Relationship Specialty Start Date End Date Harley Goodman DO [address] [place] [address] PCP - General Internal Medicine 07/18/18
--- OUTSIDE RECORDS SUMMARY | 2025-01-15 11:37 | XMS_ITS | Clinical Summary ---
Author Organization [facility] Address [address] [place] [address] Care Team Providers Care Campus Interviews Intern Name Role Phone Harley Goodman Primary Care Provider [phone] Allergies Active Allergy Reactions Criticality Noted Date [...] Inject under the skin. Active HYDROcodone-diony taminophen ([place]) 5-325 MG tablet TAKE 1 TABLET BY [...] Encounters Date Type Department Care Team Description 12/03/2024 8:30 AM EDT Office Visit [facility] [address] [facility] [address] [place] [address] Kenneth Aguilar DPM Diabetes 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, without long-term current use of insulin (HCC) (Primary Dx); Pain due to onychomycosis of toenails of both feet; Xerosis cutis 12/03/2024 Bamboo flowsheet [facility] [address] [facility] [address] [place] [id number] Kenneth Aguilar DPM 12/03/2024 Travel from Last 3 Months Family History [...] EDT Temperature - - Respiratory Rate 18 12/03/2024 8:35 AM EDT Oxygen Saturation - - Inhaled Oxygen Concentration - - Weight 77.6 kg (171 lb) 12/03/2024 8:35 AM EDT Height 170.2 cm (5' 7 ) 12/03/2024 8:35 AM EDT Body Mass Index 26.78 12/03/2024 8:35 AM EDT Plan of Treatment Upcoming Encounters Date Type Department Care Team (Late st Contact Info) Description 02/18/2025 8:30 AM EST Office Visit [facility] [address] [facility] [address] [place] [id number] Kenneth Aguilar DPM [address] [facility] [address] [place] [address] Health Maintenance Due Date Last Done Comments CT Colonography 1951 FIT 1951 FOBT 1950 Sigmoidoscopy 1950 FIT-DNA 08/16/2023 08/15/2020 Colonoscopy 07/11/2031 07/10/2021 Colorectal Cancer Screening 07/11/2031 Pneumococcal Vaccine: 65+ Years Completed 01/17/2018, 11/14/2016, 04/02/2016 Influenza Vaccine Completed 12/01/2024, , 12/13/2022, Additional history exists Insurance [employer] Care Teams Campus Interviews Intern Relationship Specialty Start Date End Date Harley Goodman DO [address] [place] [address] PCP - General Internal Medicine 11/07/23
--- OUTSIDE RECORDS SUMMARY | 2025-01-15 11:42 | XMS_ITS | CCD ---
Author Organization [facility] Care Team Providers Care Senior Water Resources Engineer Name Role Phone NETO BISHOPAB Nakul Admitting Unavailable PINKY BISHOP Attending Unavailable HARLEY CRESPO Referring Unavailable HARLEY CRESPO Primary Care Unavailable ELTAADARSH, PINKY Mota Surgeon Unavailable SD Procedure Practitioner Unavailab le VIJAY, PINKY Mota Admitting Unavailable PINKY BISHOP Attending Unavailable HARLEY CRESPO Referring Unavailable HARLEY CRESPO Primary Care Unavailable Arlen Kwong Unavailable Kingsley Good Unavailable Shannon Escobar Unavailable HARLEY CRESPO Primary Care Physician Harley Crespo DO Primary Care Provider DO Harley Crespo Primary Care Provider [phone] JULY Kwong Attending Provider [phone] JessicangDO Gagan walls Admit Provider JessicangDO Gagan walls Attending Provider [phone] Harley Crespo Unavailable VIJAY, DR LOWE Consulting [...] Unavailable ZIEBFLAVIO, DR HIGINIO Sanchez Consulting Unavailable BANEBFLAVIO, DR HIGINIO Sanchez Consulting Unavailable CHERIE, DR [...] BALL, DR CARVALHO Admitting Unavailable ZIEBER, DR HGIINIO Sanchez Consulting Unavailable BALL, DR CARVALHO Consulting [...] CAREY Consulting Unavailable Denita Chairez Unavailable DO Cherie Harley Primary Care Provider JULY Kwong Attending Provider Harley Crespo MD Primary Care Provider Cherie BRUMFIELD, Harley Primary Care Provider Lani LEMUS, Tamara Álvarez Attending Provider Cherie BRUMFIELD, Harley Primary Care Provider Lani LEMUS, Tamara Álvarez Attending Provider LARKIN, Jason R Admitting Unavailable LARKIN, Jason R Referring Unavailable LARKIN, Jason R Attending Unavailable LARKIN, Jason R Attending Unavailable LARKIN, Jason R Admitting Unavailable CHERIE, HARLEY Referring Unavailable LARKIN, Jason R Attending Unavailable Cherie BRUMFIELD, Harley E Primary Care Provider Cherie BRUMFIELD, Harley Primary Care Provider Senia Lane DO Attending Provider [phone] Codi Easley CMA Attending Provider Unavaila Harley Callahan DO Attending Provider Arlen Kwong APRN Attending Provider Katarzyna Youngblood MD Attending Provider NON STAFF Attending Provider Unavailable Jackson Miles MD Attending Provider Provider, Outside Attending Provider Unavailable Lyssa Alcantar DO Attending Provider Meghan Elizalde MD Attending Provider Cherie BRUMFIELD, Harley Primary Care Provider Codi Easley CMA Attending Provider Unavaila Harley Callahan DO Attending Provider [phone] Cherie BRUMFIELD, Harley Primary Care Provider Kingsley Good MD Attending Provider [phone] MapArlen strickland APRN Attending Provider Cherie BRUMFIELD, Harley Primary Care Provider Codi Easley CMA Attending Provider UnavailHarley Melgoza DO Attending Provider KENNETH TAVERA Attending Unavailable LIANG, KENNETH Mota Attending Unavailable LIANG, KENNETH Mota Attending Unavailable LIANG, KENNETH Mota Attending Unavailable LIANG, KENNETH Mota Attending Unavailable NON STAFF Admitting Unavailable NON STAFF Attending Unavailable Marker, Lyssa Rabago Admitting Unavailable Marker, Lyssa Rabago Attending Unavailable Ekwenna, Jackson O Admitting Unavailable Ekwenna, Jackson O Attending Unavailable Ball, Harley Attending Unavailable Ball, Harley Admitting Unavailable Ball, Harley Primary Care Unavailable Lani, Tamara Álvarez Admitting Unavail able Lani, Tamara Álvarez Attending Unavail able Latisha, Kingsley Attending Unavailable LatishaMirlandeul Admitting Unavailable Ball, Harley Admitting Unavailable Ball, Harley Attending Unavailable Jason LARKIN Attending Unavailable Jason LARKIN Admitting Unavailable EKWENNA, OBI Admitting Unavailable EKWENNA, OBI Attending Unavailable KEVIN ARTEAGA Referring Unavailable JENNI KEVIN Referring Unavailable KATHEMALATHA MEJIA Referring Unavailable HORANI, DEJUAN Admitting Unavailable SELLERS, ARAMIS Attending Unavailable KEVIN ARTEAGA Referring Unavailable CRISTOPHER, EMEKA Referring Unavailable JENNI, KEVIN Referring Unavailable JENNI, KEVIN Referring Unavailable JENNI, KEVIN Referring Unavailable CRISTOPHER, EMEKA Referring Unavailable CRISTOPHER, EMEKA Referring Unavailable CRISTOPHER, EMEKA Referring Unavailable EKWENNA, OBI Referring Unavailable EKWENNA, OBI Referring Unavailable JENNI, KEVIN Referring Unavailable JENNI, KEVIN Referring Unavailable JENNI, KEVIN Referring Unavailable AMERICO, BONAVENTURE Referring Unavailable YESYTATIANNA Referring Unavailable JENNIKEVIN Referring Unavailable JENNI KEVIN Referring Unavailable EKWENNA, OBI Attending Unavailable KEVIN ARTEAGA Referring Unavailable JENNIKEVIN Molina Referring Unavailable YESYTATIANNA Referring Unavailable ELTAHAWY, EHAB Attending Unavailable KEVIN ARTEAGA Attending Unavailable ELTAHAWY, EHAB Attending Unavailable TATIANNA HAYWARD Referring Unavailable YOST, YFN Referring Unavailable AMERICO, BONAVENTURE Referring Unavailable EKWENNA, OBI Admitting Unavailable EKWENNA, OBI Attending Unavailable KATARZYNA YOUNGBLOOD Referring Unavailable HORANI, DEJUAN Admitting Unavailable LAURA, HANI Attending Unavailable Jason LARKIN Attending Unavailable Jason LARKIN Attending Unavailable Jason LARKIN Attending Unavailable Jason LARKIN Attending Unavailable Jason LARKIN Attending Unavailable Jason LARKIN Admitting Unavailable Allergies Allergy Classification Reported Allergen(s) Allergy Type Date of Onset Reaction(s) Facility (1 source) 81336,00; Translations: [Unknown] Propensity to adverse reactions (disorder) 02-10-20 [facility] Repository (14 sources) semaglutide; Translations: [semaglutide] Allergy to substance 05-28-19 25 Gastrointestinal Upset [facility] Comment on above: constipation (4 sources) No Known Medication Allergies; Translations: [No Known Medication Allergies] Propensity to adverse reactions (disorder) [facility] Repository Medications Current Medications Medication Drug Class(es) [...] / HYDROcodone bitartrate 5 mg oral tablet (12 sources) Opioid Agonist Start: 08-14-2022 take 1 tablet by mouth every four to six hours as needed for pain HYDROcodone-acetaminophen ([place]) 5-325 MG tablet TAKE 1 TABLET BY [...] take 0.25 mg by mouth once daily Start: 08-25-2024 End: 10-27-2024 take 1 tablet [...] bhavik th once daily in the morning take 1 tablet by mouth once rg y aspirin 81 MG chewable tablet Chew 1 tablet every day by oral route. Active Comment on above: Aspirin Active 81 MG PO Daily June 22, 2020 4:21am atorvastatin 80 mg oral tablet (12 sources) HMG-CoA Reductase Inhibitor atorvastatin (Lipitor) 80 [...] mg by mouth twice daily with meals. cephalexin 500 mg oral capsule (1 source) Cephalosporin Antibacterial Start: 5 End: 5 take 1 capsule by mouth twice daily Keflex 500 mg Cap 500 mg = 1 cap(s), Oral, BID, X 3 week(s), # 42 cap(s), Refills(s) 0, Pharmacy: [facility]/pharmacy #[id number], 169, cm, 12/18/24 10:04:00 EDT, Height/Length Dosing, 85, kg, 12/18/24 10:04:00 EDT, Weight Dosing Start Date: 12/18/24 Stop Date: 01/08/25 Status: Ordered Quantity: 42.0 Unit: cap(s) Repeat number: 1 cholecalciferol 0.025 mg oral capsule (20 sources) Vitamin D Start: 4 take 1 capsule by mouth once daily in the morning take 1 capsule by mouth in the [...] (20 sources) P2Y12 Platelet Inhibitor Start: 5 End: 5 take 1 tablet by mouth [...] take 1 tablet by mouth once daily Plavix 75 mg Tab 75 mg = 1 tab(s), Oral, Daily, Refills(s) 0 Start Date: 09/07/21 Status: Ordered Repeat number: 1 Start: 07-11-2020 End: 07-13-2020 take 1 tablet [...] flash glucose sensor (FreeStyle Morris 2 Sensor) (15 sources) Start: 01-23-2024 flash glucose sensor (FreeStyle [...] Repeat number: 1 Start: 10-17-2023 End: 08-03-2024 Start: 10-17-2023 End: 10-17-2023 Insulin Aspart U-100 [...] Active insulin degludec 100 unt/ml injectable solution (20 sources) Insulin Analog Start: 08-03-2024 inject 14 [IU] by subcutaneous injection once daily Tresiba 100 units/mL subcutaneous solution 14 unit(s), SubCutaneous, Daily Start Date: 08/03/24 Status: Ordered Repeat number: 1 Start: 08-03-2024 Start: 04-30-2024 End: 08-03-2024 Insulin Degludec (Tresiba [...] ml insulin glargine 100 unt/ml pen injector (12 sources) Insulin Analog insulin glargine (Lantus SoloStar) [...] y. insulin lispro (HumaLOG) 100 UNIT/ML injection (12 sources) insulin lispro (HumaLOG) 100 UNIT/ML injection [...] take 1 tablet by mouth twice daily isosorbide mononitrate 60 mg ER Tab 60 mg = 1 tab(s), Oral, BID, Refills(s) 0 Start Date: 09/07/21 Status: Ordered Repeat number: 1 Start: 06-22-2020 End: 01-17-2022 take 1 tablet [...] units/day) Active levoFLOXacin 250 mg oral tablet (8 sources) Quinolone Antimicrobial Start: 12-03-19 take 2 tablets by mouth once daily, then take 1 tablet by mouth once daily Start: 08-27-2024 End: 10-27-2024 Levofloxacin 250 mg tablet D iscontinued 0 PO Daily 15 August 27, 2024 12:00am October 27, 2024 11:47am 2 tablets PO on day one, followed by 1 tablet daily Liraglutide (Victoza 3-Michelet) 0.6 mg/0.1 mL [...] 1 tablet by bhavik th once daily Start: 04-30-2024 take 1 tablet by bhavik [...] Daily, # 5 tab(s), Refills(s) 0, Pharmacy: [facility]/pharmacy #[id number], 169, cm, 08/03/24 13:56:00 EDT, [...] Orally Once a day Active Multivitamin tablet (9 sources) Start: 08-03-2024 take 1 tablet by [...] August 03, 2024 9:41am nitroglycerin 0.4 mg subling ual tablet (20 sources) Nitrate Vasodilator Start: 06-18-2023 nitroglycerin (N itrostat) 0.4 MG SL tablet [...] Active oxybutynin chloride 5 mg oral tablet (6 sources) Cholinergic Muscarinic Antagonist Start: 12-01-2024 take 3 tablets by mouth once daily Start: 11-23-2024 take 1 tablet by bhavik th once daily oxybutynin 15 mg ER Tab 15 mg = 1 tab(s), Oral, Daily, # 90 tab(s), Refills(s) 3, Pharmacy: [facility]/pharmacy #[id number], 169, cm, 11/23/24 12:23:00 EDT, Height/Length [...] ranolazine 500 mg extended release oral tablet (20 sources) Anti-anginal Start: 02-24-2024 take 1 tablet [...] Date: 08/03/24 Status: Ordered Repeat number: 1 tamsulosin hydrochloride 0.4 mg oral capsule (3 sources) alpha-Adrenergic Jason Start: 11-23-2024 tamsulosin 0.4 mg Cap 0.4 mg = 1 cap(s), Refills(s) 0 Start Date: 11/23/24 Status: Ordered Repeat number: 1 thiamine 100 mg oral tablet (20 sources) Start: 08-12-2023 take 1 tablet by mouth every other day Start: 07-02-2023 End: 08-12-2023 Thiamine Hcl (Vitamin [...] 2020 5:52pm ciprofloxacin 500 mg oral tablet (3 sources) Quinolone Antimicrobial Start: 08-03-2024 take 1 tablet by mouth once daily Cipro 500 mg Tab 500 mg = 1 tab(s), Oral, Daily, take one tab day before procedure and one tab after procedure, # 2 tab(s), Refills(s) 0, Pharmacy: [facility]/pharmacy #[id number], 169, cm, 05/05/25 13:56:00 EDT, Height/Length Dosing, 85.8, kg, 08/03/24 [...] 2023 8:42am take 1 capsule by mo ut every [...] PO Twice daily June 22, 2020 12:00am Tamia 11th, 2022 9:56am Comment on above: TAKE 1 2 [...] AC,HS expect 80 units a day Not-Taking 3 ml liraglutide 6 mg/ml pen injector [...] on above: Take by mouth. Multivitamin Tablet (14 sources) Start: 01-15-2022 End: 08-03-2024 take 1 [...] 2022 11:00pm mupirocin 0.02 mg/mg topical ointment (9 sources) RNA Synthetase Inhibitor Antibacterial Start: 07-30-2024 [...] 12:00am July 10, 2021 9:59am triamcinolone acetonide 0.18655 mg/mg topical ointment (1 source) Corticosteroid triamcinolone [...] Problem Date Documented Date Episodic/Chronic Abdominal pain (17 sources) Right lower quadrant pain; Translations: [Right [...] anxiety disorder] 08-06-2023 Chronic Biliary tract disease (11 sources) Calculus of gallbladder without cholecystitis without obstruction; Translations: [Biliary calculus] Onset: 2 Episodic Cancer of bladder (15 sources) Transitional cell carcinoma of bladder; Translations: [Malignant neoplasm of bladder, unspecified] Onset: 5 10-12-2024 Chronic Comment on above: Cystoscopy for hemat uria - 07/2024,TURB - 09/2024 Cystoscopy for hemat uria - 07/2024,TURBT - 09/2024 Cancer of bladder (2 sources) History of malignant neoplasm of bladder; Translations: [Personal history of malignant neoplasm of bladder] Onset: 5 Episodic Cancer; other and unspecified primary (3 sources) H/O: malignant neoplasm 11-23-2024 Episodic Cataract (12 sources) Bilateral age-related nuclear cataracts; Translations: [Age-related [...] 25%, LVH, normal RV size/function - 07/2024,BiV LASER CUTTER-D 01/2023 Coronary atherosclerosis and other heart disease (20 sources) Multi vessel coronary artery disease; Translations: [Atherosclerotic heart disease of zuni coronary artery without angina pectoris] Onset: 3 09-07-2021 Chronic Comment on above: CABG x - 1995PCI/s tent x 6 CABG x - 1995PCI/s tent x 8 CABG x [...] Onset: 3 Chronic Deficiency and other anemia (8 sources) Anemia; Translations: [Anemia, unspecified] 10-27-2024 Episodic [...] Resolved: 2 Chronic Fluid and electrolyte disorders (17 sources) Dehydration; Translations: [Hyperkalemia] Onset: 2 07-14-2024 Episodic Genitourinary symptoms and ill-defined conditions (20 sources) Lower urinary tract obstructive syndrome; Translations: [Obstructive and reflux uropathy, unspecified] Onset: 5 07-14-2024 Episodic Hyperplasia of prostate (7 sources) Nocturia due to benign prostatic hypertrophy 09-07-2021 Chronic Hypertension with complications and secondary hypertension (20 sources) Chronic kidney disease due to hypertension; Translations: [Hypertensive chronic kidney disease with stage 1 through stage 4 chronic kidney disease, or unspecified chronic kidney disease] Onset: 1 Resolved: 2 Chronic Mycoses (8 sources) Pain in toe; Translations: [Tinea unguium] 01-23-2024 Episodic Nausea and vomiting (13 sources) Nausea; Translations: [Nausea] Onset: 2 Episodic Neoplasms of unspecified nature or uncertain behavior (9 sources) Monoclonal gammopathy of uncertain significance; Translations: [Monoclonal gammopathy (clinical)] Onset: 9 09-07-2021 Chronic Nutritional deficiencies (20 sources) Vitamin D deficiency; Translations: [Vitamin D deficiency, unspecified] Onset: 1 Resolved: 2 Chronic Osteoarthritis (6 sources) Arthritis 08-03-2024 Chronic Other aftercare (20 sources) Long-term current use of insulin; Translations: [custodial (current) use of insulin] Episodic Other aftercare (11 sources) custodial (current) use of insulin; Translations: [custodial current use of insulin Z79.4] Onset: 1 Resolved: 2 Episodic Other aftercare (1 source) Long-term current use of anticoagulant; Translations: [terminal make up operator (current) use of anticoagulants] Onset: 5 Episodic Other aftercare (1 source) Long-term current use of drug therapy; Translations: [custodial (current) use of antithrombotics/antiplat elets] Onset: 5 Episodic Other circulatory disease (7 sources) Stenosis of abdominal aorta 09-07-2021 Chronic Other connective tissue disease (20 sources) Disorder of rotator cuff; Translations: [Unspecified rotator cuff tear or rupture of right shoulder, not specified as traumatic] Episodic Other connective tissue disease (20 sources) Impingement syndrome of right shoulder region; Translations: [Impingement syndrome of right shoulder] Episodic Other diseases of bladder and urethra (6 sources) Mass of urinary bladder 08-03-2024 Chronic Other diseases of bladder and urethra (2 sources) Detrusor overactivity; Translations: [Overactive bladder] Onset: 5 Chronic Other diseases of bladder and urethra (3 sources) Overactive bladder 11-23-2024 Chronic Other diseases of [...] (of renal origin)] Chronic Other gastrointestinal disorders (7 sources) Irritable bowel syndrome 09-07-2021 Chronic Other [...] Episodic Other nutritional; endocrine; and metabolic disorders (7 sources) Body mass index 25-29 - overweight [...] PSA: 37 - 07/2023 Other skin disorders (6 sources) Asteatosis cutis; Translations: [Xerosis cutis] 01-23-2024 Episodic Other skin disorders (2 sources) Changes in skin texture; Translations: [Changes in skin texture] 08-03-2024 Episodic Other skin disorders (4 sources) Scab of skin; Translations: [Changes in skin texture] 08-03-2024 Episodic Peripheral and visceral atherosclerosis (7 sources) Intermittent claudication of bilateral lower limbs co-occurrent and due to atherosclerosis 09-07-2021 Chronic Screening and history of mental health and substance abuse codes (9 sources) Personal history of nicotine dependence; Translations: [Ex-smoker] Onset: 3 08-03-2024 Episodic Spondylosis; intervertebral disc disorders; other back problems (7 sources) Lumbar spondylosis 09-07-2021 Chronic Unclassified (1 source) CHRN KIDNEY DISEASE STG 3 UNSP; Translations: [CHRN KIDNEY DISEASE STG 3 UNSP] Onset: 3 Unclassified (1 source) CONTACT W/AND (SUSP) EXPOS COVID-19; Translations: [CONTACT W/AND (SUSP) EXPOS COVID-19] Onset: 2 Unclassified (8 sources) Chronic renal impairment, stage 3b; Translations: [Chronic renal impairment, stage 3b] Unclassified (6 sources) Drug therapy finding 08-03-2024 Unclassified (6 sources) Patient encounter status 08-03-2024 Unclassified (2 sources) Long-term current use of drug therapy 12-18-2024 Urinary tract infections (6 sources) Urinary tract infectious disease; Translations: [Urinary tract infection, site not specified] [...] that caused by tuberculosis or sexually transmitteddisease) (12 sources) Blepharitis of upper and lower eyelids of bilateral eyes; Translations: [Unspecified blepharitis right eye, upper and lower eyelids] Onset: 10-12-2022 10-12-2022 Episodic Neoplasms of unspecified nature or uncertain behavior (2 sources) Neoplasm of unspecified behavior of bladder; Translations: [Neoplasm of unspecified behavior of bladder] Onset: 08-04-2024 Episodic Nonspecific chest pain (20 sources) Chest pain; Translations: [Chest pain, unspecified] Onset: 01-15-2022 07-11-2020 Episodic Other aftercare (1 source) terminal make up operator (current) use of aspirin; Translations: [FEATHER SAWYER CURRENT USE OF ASPIRIN] Onset: 04-03-2022 Episodic Other aftercare (1 source) Other mcfp (current) drug therapy; Translations: [OTH FEATHER SAWYER CURRENT DRUG THERAPY] Onset: 04-03-2022 Episodic Other eye disorders (12 sources) Dry eyes; Translations: [Dry eye syndrome [...] Test Name Value Interpretation Reference Range Facility C Urineon 01-10-2025 Bacteria identified Cx Nom (U) Microbiology PROCEDURE: Urine Culture [R1] SOURCE: U CleanCatch BODY SITE: COLLECTED DATE/TIME: 01/08/2025 10:28 EDT RECEIVED DATE/TIME: 01/08/2025 17:39 EDT START DATE/TIME: 01/08/2025 17:39 EDT FREE TEXT SOURCE: CHAYA LEMUS, Jason LARKIN MD, Jason Sanchez FINAL REPORTS Final Report [] Verified Date/Time: 01/10/2025 09:21 EDT No growth at 2 days. Performing Locations R1: This test was performed at: [facility], [address] [place] [address], [id number], [facility] Comment on above: Performed By: #### [id number] #### [facility] [address] [place] [id number] C Urineon 12-20-2024 Bacteria identified Cx Nom (U) Microbiology PROCEDURE: Urine Culture [R1] SOURCE: U Random BODY SITE: COLLECTED DATE/TIME: 12/18/2024 10:37 EDT RECEIVED DATE/TIME: 12/18/2024 17:29 EDT START DATE/TIME: 12/18/2024 17:29 EDT FREE TEXT SOURCE: CHAYA LEMUS, Jason LARKIN MD, Jason Sanchez FINAL REPORTS Final Report [] Verified Date/Time: 12/20/2024 07:34 EDT <10,000 cfu/ml Mixed skin contaminants Performing Locations R1: This test was performed at: [facility], [address] [place] [address], [id number], [facility] Comment on above: Performed By: #### [id number] #### [facility] [address] [place] [id number] Ambulatory Visit Summaryon 0 12-18-2024 Ambulatory Visit Summary Ambulatory Visit Summary LANI LIZAMA :1950 Visit Date:12/18/2024 Ambulatory Visit Instructions Your Diagnosis History of bladder cancer OAB (overactive bladder) Urinary tract infection Screening PSA (prostate specific antigen) Former smoker Antiplatelet or antithrombotic long-term use Your Care Team Attending Physician - Jason LARKIN MD Primary Care Physician - HARLEY CRESPO DO This Is Your Medications List cephalexin (Keflex 500 mg Cap) Contact prescribing physician if questions or concerns [...] Cap) [Image Removed: STOP]Stop taking these medications oxybutynin (oxybutynin 15 mg ER Tab) Procedures Performed Colonoscopy (07/10/2021), EGD - [...] (Temporal Artery) 37 ???C Heart Rate (Peripheral) 89 Respiratory Rate 18 Blood Pressure 146/94 Height 169 cm Height 67 in Weight 85 kg Weight 187.393 lb BMI 29.76 What to do next Scheduled Follow-Up Appointments Saturday 9:30 AM EDT Where: [facility] [address] [address]- You Need to Schedule the Following Appointments Follow Up with CHAYA LEMUS, BENNY Payne When: Where: [address] [place] [id number]- Medications What How Much When Instructions New cephalexin (Keflex 500 mg Cap) 1 Capsules By Mouth 2 times a day Duration: 3 Weeks Pickup at [facility]/pharmacy #[id number] Unchanged alprazolam (alprazolam 0.5 mg Tab) 1 [...] Mouth Every day Contact prescribing physician if question (more content not included)... Normal [facility] Ambulatory Visit Summary Ambulatory Visit Summary LANI LIZAMA :1950 Visit Date:12/18/2024 Ambulatory Visit Instructions Your Diagnosis History of bladder cancer OAB (overactive bladder) Urinary tract infection Screening PSA (prostate specific antigen) Former smoker Antiplatelet or antithrombotic long-term use Your Care Team Attending Physician - CHAYA LEMUS, Jason Sanchez Primary Care Physician - HARLEY CRESPO DO This Is Your Medications List cephalexin (Keflex 500 mg Cap) Contact prescribing physician if questions or concerns [...] Cap) [Image Removed: STOP]Stop taking these medications oxybutynin (oxybutynin 15 mg ER Tab) Procedures Performed Colonoscopy (07/10/2021), EGD - Esophagogastroduodenoscopy (07/10/2021), PCI - Percutaneous coronary intervention (07/13/2020), Cardiac catheterization (2019), PCI - Percutaneous coronary intervention (2018), Aortic [...] (Temporal Artery) 37 ???C Heart Rate (Peripheral) 89 Respiratory Rate 18 Blood Pressure 146/94 Height 169 cm Height 67 in Weight 85 kg Weight 187.393 lb BMI 29.76 What to do next Scheduled Follow-Up Appointments Saturday 9:30 AM EDT Where: [facility] [address] [address]- You Need to Schedule the Following Appointments Follow Up with CHAYA LEMUS, BENNY Payne When: Where: [address] [place] [id number]- Medications What How Much When Instructions New cephalexin (Keflex 500 mg Cap) 1 Capsules By Mouth 2 times a day Duration: 3 Weeks Pickup at [facility]/pharmacy #[id number] Unchanged alprazolam (alprazolam 0.5 mg Tab) 1 [...] Mouth Every day Contact prescribing physician if question (more content not included)... Normal [facility] Orders Onlyon 12-18-2024 Orders Only [id number] Lani Lizama 1950 M Date Provider Department Center 12/18/2024 KEVIN DEMPSEY [facility] Family History Problem Relation Age of Onset Heart attack Mother Other Father Other Brother Heart attack Maternal Grandmother Heart attack Maternal Grandfather Family Status - Relation Status Age at Mother Father Brother Maternal Grandmother Maternal Grandfather Normal [facility] Urology Office/Clinic Noteon 12-18-2024 Urology Office/Clinic Note Urology Office/Clinic Note Chief Complaint 4 week f/u to starting Oxybutynin HPI Staff Pt is a 74 year old male here for a 1 month med check Dx: gross hematuria, bladder mass, screening PSA, former smoker and anticoagulated. [facility] S/p Cysto 08/04/24 *Oxybutynin ER 15 mg qd started at last office visit PSA 08/27/23 - 1.37. IPSS score of 25 today. Frequency, and urgency almost always. Nocturia x5. Weak stream more than half the time. Intermittency and straining about half the time. Pt states he has not seen any visible blood or having any dysuria. PVR today is 80ml. History of Present Illness Tests reviewed: reviewed UA I have reviewed the previous health record information and history for this patient from Dr. Larkin I have reviewed and verified the staff [...] & Measurements T: 37 ???C(Temporal Artery) HR: 89(Peripheral) RR: 18 BP: 146/94 HT: 169 cm HT: 67 in WT: [...] Neg cytol. Initial TURBT 09/29/[address] [facility] - High-grade, invasive papillary urothelial carcinoma. Small fragments of muscularis propria present, uninvolved by neoplasm. Repeat TURBT 11/11/[address] Miles at [facility] - Fragments of granulation tissue with necrotizing granulomatous inflammation and focal overlying benign urothelium. No residual urothelial carcinoma. Unable to proceed with BCG #6 until UTI has been fully treated. -Surveillance cysto in the future after pt completes BCG #6 to ensure no tumor recurrence 2. OAB (overactive bladder) (N32.81: Overactive bladder) PVR 11/23/24 - 62 mL 12/18/24 - 80 mL IPSS 25 (20) Failed Myrbetriq due to cost. Oxybutynin increased from 5 mg to 15 mg ER qd at prior OV due to developing frequency, urgency after TURBT and catheter removal. Pt called our office recently stating that he had not noticed improvement since increasing dose of Oxybutynin. Has mild dry mouth. Reports he fainted while on medication. Pt states he is now taking it at bedtime. No issues since taking anticholinergic at bedtime. Advised pt that lightheadedness or dizziness is not a usual SE of Oxybutynin. Still voiding very frequently, q45 minutes, If I'm justina . Symptoms could be exacerbated by UTI. Will have pt d/c Oxybutynin due to lack of benefit. 3. Urinary tract infection (N39.0: Urinary tract infection, site not specified) UA today shows moderate blood and trace leuks. Urine is very cloudy and appears a thick consistency, unable to see through the urine. Urinary symptoms likely exacerbated by UTI. -Empirically start Keflex 500 mg bid x 3 weeks pending culture -Recheck UA in 3 weeks to ensure infection has cleared prior to BCG treatment 4. Screening PSA (prostate specific antigen) (Z12.5: Encounter for screening for malignant neoplasm of prostate) PSA 08/27/23 - 1.37 -Cont PSA monitoring w/ PCP [1] 5. Former smoker (Z87.891: Personal history of nicotine dependence) x32 yrs. 6. Antiplatelet or antithrombotic long-term use (Z79.02: custodial (current) use of antithrombotics/antiplatel ets) On Plavix. Hx of CABG x5 1995 at [facility], [facility]. Elevated risk for periop complications. [3] Follow-up With When Contact Information CHAYA LEMUS, Jason Sanchez, URL [address] [place] [address]- Additional Instructions: See above for plan Patient Education Urinary Tract Infection, Adult I, Anna Power, personally scribed for Dr. Larkin on 12/18/2024 10:23:49. . Documentation recorded by the scribe, Anna Power, accurately reflects the services(s) I performed and decisions made by me. Authenticated by Dr. Larkin on 12/18/2024 10:27:01. Problem List/Past Medical History Ongoing Abdominal pain, RLQ Anti (more content not included)... Normal [facility] Comment on above: Result Comment: Elec tronically Signed By: Jason LARKIN MD.br\Date and Time Signed: 12/18/24 10:27 EDT\.br\Electronically Co-Signed By: Anna Powerbr\Date and Time Co-Signed: 12/18/24 10:24 EDT Laboratory - UrinalysisOrder ed By: Harley Crespo on 12-02-2024 Mucus Ql (Urine sed) NONE SEEN NONE SEEN [facility] No Panel InformationOrdered By: Harley Crespo on 12-02-2024 Urine Bacteria SMALL #/HPF Abnormal NONE SEEN [facility] Urine Culture Reflexed ALREADY ORDERED [facility] Urine Other Casts NONE SEEN #/LPF NONE SEEN [facility] Urine Other Crystals None Seen #/HPF None Seen [facility] Urine RBC 0-2 #/HPF 0-2 [facility] Urine Squamous Epithelial Cells RARE #/LPF NONE/RARE [facility] Urine WBC >100 #/HPF Abnormal NONE SEEN [facility] Urine Cultureon 12-02-2024 Bacteria identified Cx Nom (U) ORGANISM: Serratia marcescens (O:SERMAR) [place] Count >100,000 Aerobic MALCOLM Charge (NMIC56) SUSCEPTIBILITY ORGANISM: O:SERMAR ANTIBIOTIC INTERPRETATION MALCOLM Amikacin S <16 Aztreonam I 8 Cefepime S <2 Ceftazidime R >16 Ceftazidime/Avibactam S <4 Ceftolozane/Tazobactam S <2 Ceftriaxone I 2 Ciprofloxacin S <0.25 Ertapenem S <0.5 Gentamicin S <2 Levofloxacin S <0.5 Meropenem S <1 Meropenem/Vaborbactam S <2 Piperacillin/Tazobactam I <8 Tetracycline R >8 Tigecycline S <2 Tobramycin I 8 Trimethoprim/Sulfamethoxaz ole S <0.5 S = SUSCEPTIBLE [...] RESISTANT TO ALL B-LACTAM DRUGS. PERFORMED BY: [place] [address] PATHOLOGIST MANUFACTURING INTERN CARSON ADAMES M.D. Normal [facility] Comment on above: Performed By: #### C UU #### [address] Yeast detection in urine sed iment by light microscopyOrdered By: Harley Crespo on 12-02-2024 Yeast LM Ql (Urine sed) SEEN Abnormal NONE SEEN [facility] Ambulatory Visit Summaryon 0 11-23-2024 Ambulatory Visit [...] Jason LARKIN MD Where: [facility] [address], [place] [id number]- You Need to Schedule the Following Appointments Follow Up with Jason LARKIN MD, URL When: Comments: 4 wks (new med) Where: [address] [place] [address] Medications What How Much When Why Instructions Changed oxybutynin (oxybutynin 15 mg ER Tab) 1 Tablets By Mouth Every day OAB (overactive bladder) Pickup at [facility]/pharmacy #[id number] Unchanged alprazolam (alprazolam 0.5 mg Tab) 1 [...] Every da (more content not included)... Normal [facility] Urology Office/Clinic Noteon 11-23-2024 Urology Office/Clinic Note Urology Office/Clinic Note Chief Complaint F/u to review pathology report HPI Staff F/u to [facility] to review pathology. Dx: gross hematuria, bladder [...] Neg cytol. Initial TURBT 09/29/[address] Miles at [facility] - High-grade, invasive papillary urothelial carcinoma. Small fragments of muscularis propria present, uninvolved by neoplasm. Repeat TURBT 11/11/[address] Miles at [facility] - Fragments of granulation tissue with necrotizing granulomatous inflammation and focal overlying benign urothelium. No residual urothelial carcinoma. Reviewed path reports from [facility], re-resection was neg for malignancy. Discussed need for BCG therapy given high-grade dx, which entails BCG x6 wks then BCG x3 wks 3 months later. Will also perform surveillance cystoscopies [id number] to monitor for tumor recurrence. Advised pt [...] ER 15 mg qd. Rx sent to [facility]. GoodRx coupon provided. -F/u in 4 wks 3. Screening PSA (prostate specific antigen) (Z12.5: Encounter for screening for malignant neoplasm of prostate) PSA 08/27/23 - 1.37. -Cont PSA monitoring w/ PCP [1] 4. Former smoker (Z87.891: Personal history of nicotine dependence) x32 yrs. Risk factor for urothelial ca. [2] 5. 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 Hx of CABG x5 1995 at [facility], PCI[facility]. Elevated risk for periop complications. [3] Follow-up With When Contact Information CHAYA LEMUS, Jason Sanchez, URL [address] [place] [address] [place] [address] Additional Instructions: 4 wks (new med) Patient Education Overactive Bladder, Adult Bladder Cancer I, Tiffany Patten, personally scribed for Dr. Larkin on 11/23/2024 13:53:09. . Documentation recorded by the scribeTiffany, accurately reflects the services(s) I performed and decisions made by me. Authenticated by Dr. Larkin on 11/23/2024 13:54:27. 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 Normal [facility] Comment on above: Result Comment: Elec tronically Signed By: Jason LARKIN MD\.br\Date and Time Signed: 11/23/24 13:54 EDT\.br\Electronically Co-Signed By: Tiffany Patten\.br\Date and Time Co-Signed: 11/23/24 13:53 EDT Orders Onlyon 11-17-2024 Orders Only [id number] Lani Lizama 1950 M Date Provider Department Center 11/17/2024 Félix-FABRICIO ALVAREZ [facility] [place] HeartVAS Family History Problem Relation Age of Onset Heart attack Mother Other Father Other Brother Heart attack Maternal Grandmother Heart attack Maternal Grandfather Family Status - Relation Status Age at Mother Father Brother Maternal Grandmother Maternal Grandfather Normal [facility] HISTOLOGY - TISSUE EXAMon LAB AP [...] Clinical Laboratory Improvement Amendments of 1998. Normal [facility] Comment on above: Order Comment: Pre-o p diagnosis:Malignant neoplasm of urinary bladder, unspecified site (CMS/HCC) [C67.9] Performed By: #### L [id number] #### [facility] (RACHEL) [address] [place] [address] LAB AP CASE REPORT Normal [facility] Comment on above: Order Comment: Pre-o p diagnosis:Malignant neoplasm of urinary bladder, unspecified site (CMS/HCC) [C67.9] Result Comment: Surg ical Pathology Case: [id number] Authorizing Provider: Last Miles MD Collected: 11/11/2024 0903 [facility] Main Operating Room Received: 11/11/2024 1319 Pathologist: Kevin Dawson MD Specimen: Urinary Bladder, bladder mass- left lateral wall Performed By: #### L [id number] #### [facility] (BEAKER) [address] [place] [address] LAB AP CLINICAL INFORMATION Normal [facility] Comment on above: Order Comment: Pre-o p diagnosis:Malignant neoplasm of urinary bladder, unspecified site (CMS/HCC) [C67.9] Result Comment: Post -Op Diagnoses C67.9 - Malignant neoplasm of urinary bladder, unspecified site (CMS/HCC) [ICD-10-CM] Performed By: #### L [id number] #### [facility] [address] [place] [address] LAB AP DIAGNOSIS COMMENT This case was reviewed in intradepartmental consensus. Normal [facility] Comment on above: Order Comment: Pre-o p diagnosis:Malignant neoplasm of urinary bladder, unspecified site (CMS/HCC) [C67.9] Performed By: #### L [id number] #### [facility] [address] [place] [address] LAB AP GROSS DESCRIPTION [facility] Comment on above: Order [...] toto in 4 cassettes. Marlene Beltre, Pathologists' Public Health Sanitarian student Performed By: #### L [id number] #### [facility] (BEAKER) [address] [place] [address] LAB AP MICROSCOPIC DESCRIPTION [facility] Comment on above: Order Comment: Pre-o p diagnosis:Malignant neoplasm of urinary bladder, unspecified site (CMS/HCC) [C67.9] Result Comment: Micr oscopic examination performed. Immunohistochemical stain for pancytokeratin was performed on a client service representative block and shows no evidence of infiltrative carcinoma. The control is satisfactory. Performed By: #### L AB17 #### [facility] (BEAKER) [address] [place] [address] LAB AP REPORT FINAL DIAGNOSIS NARRATIVE [facility] Comment on above: Order Comment: Pre-o [...] EDT Performed By: #### L [id number] #### [facility] ([facility]ER) [address] [place] [address] HPon 11-11-2024 HP History Of Present I [place] Lizama is a 74 y.o. male presenting [...] 1,000 Uni (more content not included)... Normal [facility] NURSNOTEon 11-11-2024 NURSNOTE Pt alert and oriente d x 4 arrives to the unit with steady gait. He verbalizes understanding of scheduled surgery and ordered pre op medications. Pt speaks in full sentences and answers pre op questions appropriately. Normal [facility] OPNOTEon 11-11-2024 OPNOTE TURBT (TRANSURETHRAL RESECTION OF BLADDER TUMOR) Operative Note Date: 11/11/2024 [facility] Name: Lani Lizama, : 1950, Diagnosis Pre-op Diagnosis * Malignant neoplasm of urinary bladder, unspecified site (CMS/HCC) [C67.9] Post-op Diagnosis * Malignant neoplasm of urinary bladder, unspecified site (CMS/HCC) [C67.9] Procedures TURBT (TRANSURETHRAL RESECTION OF BLADDER TUMOR) [address] - SD CYSTOURETHROSCOPY W/DEST &/RMVL MED BLADDER MARIO Surgeons Primary: Last Miles MD Resident - Assisting: Marquis Baltazar MD Procedure Summary Anesthesia: General ASA: IV Estimated Blood Loss: None Total IV Fluids: See Anesthesia notes mL Drains: [REMOVED] Urethral Catheter 18 Fr. (Removed) Specimens ID Source Type Tests Collected By Collected At Frozen? Priority Lab ID A Urinary Bladder Tissue HISTOLOGY - TISSUE EXAM Last Miles MD 11/11/24 3030 No Routine [id number] Description: bladder mass- left lateral wall Staff: Washer And Crusher Tender: Ani Floyd RN Scrub Person: Jenise Fernandez RN [place] Washer And Crusher Tender: Carissa Frey RN Indications: Lani Lizama is an 74 [...] bed as well as surrounding areas 18 malagasy rg placed Complications: None; patient tolerated the procedure well. Disposition: PACU - hemodynamically stable. Condition: stable Last Miles Procedure Attestation Level of Attending Supervision for Procedure I was present for the entire procedure Normal [facility] POCT GLUCOSE METER UNSOLICIT ED RESULTSon 11-11-2024 Glucose [Mass/Vol] 202 mg/dL High 70-105 [facility] Comment on above: Order Comment: Waive d Testing in the ED is performed under the ED CLIA certificate #[id number]. Result Comment: sea rd Performed By: #### L [id number] ####[facility] ([facility])[address] [place] [address] HbA1c HPLC (Bld) [Mass fract ion]Ordered By: Arlen Kwong on 11-10-2024 HbA1c (Bld) [Mass fraction] 7.1 % [facility] No Panel InformationOrdered By: Arlen Kwong on 11-10-2024 Bedside Glucose 127 [facility] Erythrocyte distribution wid th Auto (RBC) [Ratio]Ordered By: Kingsley Good on 11-09-2024 Erythrocyte distribution width (RBC) [Ratio] 16.2 % High 11.0-15.0 [facility] Glomerular filtration rate ( GFR) estimation in non- AmericanOrdered By: Kingsley Good on 11-09-2024 GFR/1.73 sq M.predicted among non-blacks MDRD (S/P/Bld) [Vol rate/Area] 34 mL/min/{1.73_m2} Low >=60 mL/min/1.7 3m 2 [facility] Hematocrit Auto (Bld) [Volum e fraction]Ordered By: Kingsley Good on 11-09-2024 Hematocrit (Bld) [Volume fraction] 39.8 % Low 42.0-54.0 [facility] Hemoglobin [Mass/volume] in BloodOrdered By: Kingsley Good on 11-09-2024 Hemoglobin (Bld) [Mass/Vol] 12.7 g/dL Low 14.0-18.0 [facility] Laboratory - Chemistry and C hemistry - challengeOrdered By: Kingsley Good on 11-09-2024 Albumin [Mass/Vol] 3.8 g/dL 3.4-5.0 [facility] Calcium [Mass/Vol] 9.2 mg/dL 8.5-10.1 [facility] Chloride [Moles/Vol] 108 mmol/L High 98-107 [facility] CO2 [Moles/Vol] 25.9 mmol/L 21.0-32.0 [facility] Creatinine [Mass/Vol] 1.95 mg/dL High 0.70-1.30 [facility] GFR/1.73 sq M.predicted MDRD (S/P/Bld) [Vol rate/Area] 41 mL/min/{1.73_m2} Low >=60 mL/min/1.7 3m 2 [facility] Glucose [Mass/Vol] 146 mg/dL High 74-106 [facility] Magnesium [Mass/Vol] 1.9 mg/dL 1.8-2.4 [facility] Potassium [Moles/Vol] 3.9 mmol/L 3.5-5.1 [facility] Sodium [Moles/Vol] 144 mmol/L 136-145 [facility] Urate [Mass/Vol] 3.9 mg/dL 3.5-7.2 [facility] Urea nitrogen [Mass/Vol] 27.0 mg/dL High 7.0-18.0 [facility] Urea nitrogen/Creatinine [Mass ratio] 13.8 mg/mg [facility] Bilirubin Ql (U) Negative NEGATIVE [facility] Glucose (U) [Mass/Vol] mg/dL Abnormal NEGATIVE [facility] Ketones Ql (U) Negative NEGATIVE [facility] pH (U) 6.0 [pH] 5.0-9.0 [facility] Specific gravity (U) [Rel density] 1.015 1.005-1.02 5 [facility] Urobilinogen Qn (U) 0.2 {Luisito'U}/dL 0.2-1.0 [facility] Laboratory - Specimen inform ationOrdered By: Kingsley Good on 11-09-2024 Appearance (U) CLOUDY Abnormal CLEAR [facility] Color (U) LT. YELLOW YELLOW [facility] Laboratory - UrinalysisOrder ed By: Kingsley Good on 11-09-2024 Leukocyte esterase Test strip Ql (U) MODERATE Abnormal NEGATIVE [facility] Mucus Ql (Urine sed) NONE SEEN NONE SEEN [facility] Nitrite Ql (U) Negative NEGATIVE [facility] Protein (U) [Mass/Vol] 136.5 mg/dL High <=11.9 [facility] Protein Ql (U) 100 mg/dL Abnormal NEG/TRACE [facility] Leukocytes [#/volume] correc soraya for nucleated erythrocytes in Blood by Automated counOrdered By: Kingsley Good on 11-09-2024 WBC corrected for nucl RBC Auto (Bld) [#/Vol] 8.8 10 3/uL 4.0-11.0 [facility] MCH Auto (RBC) [Entitic mass ]Ordered By: Kingsley Good on 11-09-2024 MCH (RBC) [Entitic mass] 29.4 pg 25.9-34.0 [facility] MCHC Auto (RBC) [Mass/Vol]Or dered By: Kingsley Good on 11-09-2024 MCHC (RBC) [Mass/Vol] 31.9 g/dL 29.9-35.2 [facility] MCV Auto (RBC) [Entitic vol] Ordered By: Kingsley Good on 11-09-2024 MCV (RBC) [Entitic vol] 92.1 fL 80.0-94.0 [facility] No Panel InformationOrdered By: Kingsley Good on 11-09-2024 25-Hydroxy Vitamin D Total 41.1 ng/mL [facility] Comment on above: <20 ng/mL Vit D defi cient20-<30 ng/mL Vit D [id number] ng/mL Vit D sufficient>100 ng/mL Potential Toxicity Parathyroid Hormone (Intact) 37 pg/mL 15-65 [facility] Comment on above: Performed at: [facility] [address] [id number] Director: Kwaku Park PhD, Phone: [phone] Phosphorus Level 3.3 mg/dL 2.6-4.7 [facility] Urine Bacteria SMALL #/HPF Abnormal NONE SEEN [facility] Urine Occult Blood LARGE Abnormal NEGATIVE [facility] Urine Other Casts NONE SEEN #/LPF NONE SEEN [facility] Urine Other Crystals None Seen #/HPF None Seen [facility] Urine Random Creatinine 54.14 mg/dL 20.00-300. 00 [facility] Urine RBC 2-5 #/HPF Abnormal 0-2 [facility] Urine Squamous Epithelial Cells RARE #/LPF NONE/RARE [facility] Urine WBC 75-100 #/HPF Abnormal NONE SEEN [facility] Platelet mean volume Auto (B ld) [Entitic vol]Ordered By: Kingsley Good on 11-09-2024 Platelet mean volume (Bld) [Entitic vol] 10.0 fL 9.5-13.5 [facility] Platelets Auto (Bld) [#/Vol] Ordered By: Kingsley Good on 11-09-2024 Platelets (Bld) [#/Vol] 219 10 3/uL 150-450 [facility] RBC Auto (Bld) [#/Vol]Ordere d By: Kingsley Good on 11-09-2024 RBC (Bld) [#/Vol] 4.32 10 6/uL Low 4.70-6.10 [facility] Serum or plasma anion gap de terminationOrdered By: Kingsley Good on 11-09-2024 Anion gap [Moles/Vol] 14.0 mmol/L [facility] Urine protein/creatinine rat ioOrdered By: Kingsley Good on 11-09-2024 Protein/Creatinine (U) [Ratio] 2.52 [facility] Yeast detection in urine sed iment by light microscopyOrdered By: Kingsley Good on 11-09-2024 Yeast LM Ql (Urine sed) SEEN Abnormal NONE SEEN [facility] Telephoneon 11-02-2024 Telephone [id number] Lani Lizama 1950 M Date Provider Department Center 11/02/2024 [id number] None Family History Problem Relation [...] [place] NOTIFIED OK WITH CLINIC Normal [facility] Activated partial thrombopla stin time (aPTT) in platelet poor plasma by coagulation aOrdered By: Jackson Miles on 10-26-2024 aPTT Coag (PPP) [Time] 26.5 s 22.3-36.2 [facility] Basophils Auto (Bld) [#/Vol] Ordered By: Jackson Miles on 10-26-2024 Basophils (Bld) [#/Vol] 0.1 10 3/uL 0.0-0.1 [facility] Basophils/100 WBC Auto (Bld) Ordered By: Jackson Miles on 10-26-2024 Basophils/100 WBC (Bld) 0.7 % 0.2-2.0 [facility] Eosinophils/100 WBC Auto (Bl d)Ordered By: Jackson Miles on 10-26-2024 Eosinophils/100 WBC (Bld) 2.0 % 0.9-7.0 [facility] Erythrocyte distribution wid th Auto (RBC) [Ratio]Ordered By: Jackson Miles on 10-26-2024 Erythrocyte distribution width (RBC) [Ratio] 16.6 % High 11.0-15.0 [facility] Estimated glomerular filtrat ion rate (GFR) non- AmericanOrdered By: Jackson Miles on 10-26-2024 GFR/1.73 sq M.predicted among non-blacks MDRD (S/P/Bld) [Vol rate/Area] 28 mL/min/{1.73_m2} Low >=60 mL/min/1.7 3m 2 [facility] Globulin Calc (S) [Mass/Vol] Ordered By: Jackson Miles on 10-26-2024 Globulin (S) [Mass/Vol] 4.3 g/dL [facility] Hematocrit Auto (Bld) [Volum e fraction]Ordered By: Jackson Miles on 10-26-2024 Hematocrit (Bld) [Volume fraction] 40.1 % Low 42.0-54.0 [facility] Hemoglobin [Mass/volume] in BloodOrdered By: Jackson Miles on 10-26-2024 Hemoglobin (Bld) [Mass/Vol] 12.6 g/dL Low 14.0-18.0 [facility] INR in Platelet poor plasma by Coagulation assayOrdered By: Jackson Miles on 10-26-2024 INR Coag (PPP) [Relative time] 1.06 {INR} [facility] Comment on above: DESIRED INR:2.0-3.0 CONDITIONS NOT LISTED BELOW2.5-3.5 FOR PROSTHETIC HEART VALVE REPLACEMENT2.5-3.5 RECURRENT THROMBOSIS Laboratory - Chemistry and C hemistry - challengeOrdered By: Jackson Miles on 10-26-2024 Albumin [Mass/Vol] 3.6 g/dL 3.4-5.0 [facility] ALP [Catalytic activity/Vol] 180 U/L High 46-116 [facility] ALT [Catalytic activity/Vol] 46 U/L 16-63 [facility] AST [Catalytic activity/Vol] 26 U/L 15-37 [facility] Bilirubin [Mass/Vol] 0.5 mg/dL 0.2-1.0 [facility] Calcium [Mass/Vol] 9.2 mg/dL 8.5-10.1 [facility] Chloride [Moles/Vol] 105 mmol/L 98-107 [facility] CO2 [Moles/Vol] 28.7 mmol/L 21.0-32.0 [facility] Creatinine [Mass/Vol] 2.29 mg/dL High 0.70-1.30 [facility] GFR/1.73 sq M.predicted MDRD (S/P/Bld) [Vol rate/Area] 34 mL/min/{1.73_m2} Low >=60 mL/min/1.7 3m 2 [facility] Glucose [Mass/Vol] 200 mg/dL High 74-106 [facility] Potassium [Moles/Vol] 4.4 mmol/L 3.5-5.1 [facility] Protein [Mass/Vol] 7.9 g/dL 6.4-8.2 [facility] [facility] Sodium [Moles/Vol] 143 mmol/L 136-145 [facility] Urea nitrogen [Mass/Vol] 30.0 mg/dL High 7.0-18.0 [facility] Urea nitrogen/Creatinine [Mass ratio] 13.1 mg/mg [facility] Laboratory - Hematology and Cell countsOrdered By: Jackson Miles on 10-26-2024 Immature granulocytes/100 WBC (Bld) 0.7 % High 0.0-0.5 [facility] Leukocytes [#/volume] correc soraya for nucleated erythrocytes in Blood by Automated counOrdered By: Jackson Miles on 10-26-2024 WBC corrected for nucl RBC Auto (Bld) [#/Vol] 11.0 10 3/uL 4.0-11.0 [facility] Lymphocytes Auto (Bld) [#/Vo l]Ordered By: Jackson Miles on 10-26-2024 Lymphocytes (Bld) [#/Vol] 1.6 10 3/uL 1.2-3.8 [facility] Lymphocytes/100 WBC Auto (Bl d)Ordered By: Jackson Miles on 10-26-2024 Lymphocytes/100 WBC (Bld) 14.5 % Low 20.5-60.0 [facility] MCH Auto (RBC) [Entitic mass ]Ordered By: Jackson Miles on 10-26-2024 MCH (RBC) [Entitic mass] 29.6 pg 25.9-34.0 [facility] MCHC Auto (RBC) [Mass/Vol]Or dered By: Jackson Miles on 10-26-2024 MCHC (RBC) [Mass/Vol] 31.4 g/dL 29.9-35.2 [facility] MCV Auto (RBC) [Entitic vol] Ordered By: Jackson Miles on 10-26-2024 MCV (RBC) [Entitic vol] 94.4 fL High 80.0-94.0 [facility] Monocytes Auto (Bld) [#/Vol] Ordered By: Jackson Miles on 10-26-2024 Monocytes (Bld) [#/Vol] 1.0 10 3/uL High 0.3-0.8 [facility] Monocytes/100 WBC Auto (Bld) Ordered By: Jackson Miles on 10-26-2024 Monocytes/100 WBC (Bld) 8.9 % 1.7-12.0 [facility] Neutrophils Auto (Bld) [#/Vo l]Ordered By: Jackson Miles on 10-26-2024 Neutrophils (Bld) [#/Vol] 8.0 10 3/uL High 1.4-6.5 [facility] Neutrophils/100 WBC Auto (Bl d)Ordered By: Jackson Miles on 10-26-2024 Neutrophils/100 WBC (Bld) 73.2 % 43.0-75.0 [facility] No Panel InformationOrdered By: Jackson Miles on 10-26-2024 Eosinophils # (Auto) 0.2 10 3/uL 0.0-0.7 [facility] Immature Granulocyte # (Auto) 0.08 10 3/uL High 0.00-0.03 [facility] Platelet mean volume Auto (B ld) [Entitic vol]Ordered By: Jackson Miles on 10-26-2024 Platelet mean volume (Bld) [Entitic vol] 10.0 fL 9.5-13.5 [facility] Platelets Auto (Bld) [#/Vol] Ordered By: Jackson Miles on 10-26-2024 Platelets (Bld) [#/Vol] 332 10 3/uL 150-450 [facility] Prothrombin time (PT)Ordered By: Jackson Miles on 10-26-2024 PT Coag (PPP) [Time] 11.2 s 9.0-11.6 [facility] RBC Auto (Bld) [#/Vol]Ordere d By: Jackson Miles on 10-26-2024 RBC (Bld) [#/Vol] 4.25 10 6/uL Low 4.70-6.10 [facility] Serum or plasma albumin/glob ulin mass ratioOrdered By: Jackson Miles on 10-26-2024 Albumin/Globulin [Mass ratio] 0.8 {ratio} [facility] Serum or plasma anion gap de terminationOrdered By: Jackson Miles on 10-26-2024 Anion gap [Moles/Vol] 13.7 mmol/L [facility] Urine Cultureon 10-26-2024 Bacteria identified Cx Nom (U) <9,000 colonies/ml mixed bacterial skin contaminants 2 Days PERFORMED BY: [place] [address] PATHOLOGIST [employer] CARSON ADAMES M.D. Normal [facility] Comment on above: Performed By: #### C UU #### [address] Urine cultureOrdered By: Last Miles on 10-26-2024 Bacteria identified Cx Nom (U) 2 Days [facility] Orders Onlyon 10-18-2024 Orders Only [id number] Lani Lizama 1950 M Date Provider Department Center 10/18/2024 Félix-FABRICIO ALVAREZ [facility] CARD [facility] HeartVAS Family History Problem Relation Age of Onset Heart attack Mother Other Father Other Brother Heart attack Maternal Grandmother Heart attack Maternal Grandfather Family Status - Relation Status Age at Mother Father Brother Maternal Grandmother Maternal Grandfather Normal [facility] 36on 10-16-2024 37 Pt needs to cancel h is surgery for 11/11/24 due to an infection and needs to take care of that first. Pt will call back when he is ready to reschedule. Normal [facility] Telephoneon 10-16-2024 Telephone [phone] Lani Lizama 1950 M Date Provider Department Center 10/16/2024 [facility] [place] Family History Problem Relation Age of Onset Heart attack Mother Other Father Other Brother Heart attack Maternal Grandmother Heart attack Maternal Grandfather Family Status - Relation Status Age at Mother Father Brother Maternal Grandmother Maternal Grandfather [facility] Estimated glomerular filtrat ion rate (GFR) non- AmericanOrdered By: Meghan Elizalde on 10-14-2024 GFR/1.73 sq M.predicted among non-blacks MDRD (S/P/Bld) [Vol rate/Area] 34 mL/min/{1.73_m2} Low >=60 mL/min/1.7 3m 2 [facility] Laboratory - Chemistry and C hemistry - challengeOrdered By: Meghan Elizalde on 10-14-2024 Calcium [Mass/Vol] 8.7 mg/dL 8.5-10.1 [facility] Chloride [Moles/Vol] 110 mmol/L High 98-107 [facility] CO2 [Moles/Vol] 20.6 mmol/L Low 21.0-32.0 [facility] Creatinine [Mass/Vol] 1.97 mg/dL High 0.70-1.30 [facility] GFR/1.73 sq M.predicted MDRD (S/P/Bld) [Vol rate/Area] 41 mL/min/{1.73_m2} Low >=60 mL/min/1.7 3m 2 [facility] Glucose [Mass/Vol] 160 mg/dL High 74-106 [facility] Potassium [Moles/Vol] 4.4 mmol/L 3.5-5.1 [facility] Sodium [Moles/Vol] 142 mmol/L 136-145 [facility] Urea nitrogen [Mass/Vol] 27.0 mg/dL High 7.0-18.0 [facility] Urea nitrogen/Creatinine [Mass ratio] 13.7 mg/mg [facility] Serum or plasma anion gap de terminationOrdered By: Meghan Elizalde on 10-14-2024 Anion gap [Moles/Vol] 15.8 mmol/L [facility] Erythrocyte distribution wid th Auto (RBC) [Ratio]Ordered By: Meghan Elizalde on 10-13-2024 Erythrocyte distribution width (RBC) [Ratio] 14.8 % 11.0-15.0 [facility] Estimated glomerular filtrat ion rate (GFR) non- AmericanOrdered By: Meghan Elizalde on 10-13-2024 GFR/1.73 sq M.predicted among non-blacks MDRD (S/P/Bld) [Vol rate/Area] 28 mL/min/{1.73_m2} Low >=60 mL/min/1.7 3m 2 [facility] Hematocrit Auto (Bld) [Volum e fraction]Ordered By: Meghan Elizalde on 10-13-2024 Hematocrit (Bld) [Volume fraction] 31.8 % Low 42.0-54.0 [facility] Hemoglobin [Mass/volume] in BloodOrdered By: Meghan Elizalde on 10-13-2024 Hemoglobin (Bld) [Mass/Vol] 10.6 g/dL Low 14.0-18.0 [facility] Laboratory - Chemistry and C hemistry - challengeOrdered By: Meghan Elizalde on 10-13-2024 Calcium [Mass/Vol] 8.7 mg/dL 8.5-10.1 [facility] Chloride [Moles/Vol] 108 mmol/L High 98-107 [facility] CO2 [Moles/Vol] 17.0 mmol/L Low 21.0-32.0 [facility] Creatinine [Mass/Vol] 2.30 mg/dL High 0.70-1.30 [facility] GFR/1.73 sq M.predicted MDRD (S/P/Bld) [Vol rate/Area] 34 mL/min/{1.73_m2} Low >=60 mL/min/1.7 3m 2 [facility] Glucose [Mass/Vol] 167 mg/dL High 74-106 [facility] Potassium [Moles/Vol] 4.3 mmol/L 3.5-5.1 [facility] Sodium [Moles/Vol] 140 mmol/L 136-145 [facility] Urea nitrogen [Mass/Vol] 36.0 mg/dL High 7.0-18.0 [facility] Urea nitrogen/Creatinine [Mass ratio] 15.7 mg/mg [facility] Leukocytes [#/volume] correc soraya for nucleated erythrocytes in Blood by Automated counOrdered By: Meghan Elizalde on 10-13-2024 WBC corrected for nucl RBC Auto (Bld) [#/Vol] 4.9 10 3/uL 4.0-11.0 [facility] MCH Auto (RBC) [Entitic mass ]Ordered By: Meghan Elizalde on 10-13-2024 MCH (RBC) [Entitic mass] 29.4 pg 25.9-34.0 [facility] MCHC Auto (RBC) [Mass/Vol]Or dered By: Meghan Elizalde on 10-13-2024 MCHC (RBC) [Mass/Vol] 33.3 g/dL 29.9-35.2 [facility] MCV Auto (RBC) [Entitic vol] Ordered By: Meghan Elizalde on 10-13-2024 MCV (RBC) [Entitic vol] 88.1 fL 80.0-94.0 [facility] Platelet mean volume Auto (B ld) [Entitic vol]Ordered By: Meghan Elizalde on 10-13-2024 Platelet mean volume (Bld) [Entitic vol] 9.4 fL Low 9.5-13.5 [facility] Platelets Auto (Bld) [#/Vol] Ordered By: Meghan Elizalde on 10-13-2024 Platelets (Bld) [#/Vol] 316 10 3/uL 150-450 [facility] RBC Auto (Bld) [#/Vol]Ordere d By: Meghan Elizalde on 10-13-2024 RBC (Bld) [#/Vol] 3.61 10 6/uL Low 4.70-6.10 [facility] Serum or plasma anion gap de terminationOrdered By: Meghan Elizalde on 10-13-2024 Anion gap [Moles/Vol] 19.3 mmol/L [facility] Basophils Auto (Bld) [#/Vol] Ordered By: Meghan Elizalde on 10-12-2024 Basophils (Bld) [#/Vol] 0.0 10 3/uL 0.0-0.1 [facility] Basophils/100 WBC Auto (Bld) Ordered By: Meghan Elizalde on 10-12-2024 Basophils/100 WBC (Bld) 0.2 % 0.2-2.0 [facility] Eosinophils/100 WBC Auto (Bl d)Ordered By: Meghan Elizalde on 10-12-2024 Eosinophils/100 WBC (Bld) 0.2 % Low 0.9-7.0 [facility] Erythrocyte distribution wid th Auto (RBC) [Ratio]Ordered By: Meghan Elizalde on 10-12-2024 Erythrocyte distribution width (RBC) [Ratio] 14.6 % 11.0-15.0 [facility] Estimated glomerular filtrat ion rate (GFR) non- AmericanOrdered By: Meghan Elizalde on 10-12-2024 GFR/1.73 sq M.predicted among non-blacks MDRD (S/P/Bld) [Vol rate/Area] 23 mL/min/{1.73_m2} Low >=60 mL/min/1.7 3m 2 [facility] Globulin Calc (S) [Mass/Vol] Ordered By: Meghan Elizalde on 10-12-2024 Globulin (S) [Mass/Vol] 4.1 g/dL [facility] Hematocrit Auto (Bld) [Volum e fraction]Ordered By: Meghan Elizalde on 10-12-2024 Hematocrit (Bld) [Volume fraction] 31.8 % Low 42.0-54.0 [facility] Hemoglobin [Mass/volume] in BloodOrdered By: Meghan Elizalde on 10-12-2024 Hemoglobin (Bld) [Mass/Vol] 10.8 g/dL Low 14.0-18.0 [facility] Laboratory - Chemistry and C hemistry - challengeOrdered By: Meghan Elizalde on 10-12-2024 Albumin [Mass/Vol] 2.8 g/dL Low 3.4-5.0 [facility] ALP [Catalytic activity/Vol] 86 U/L 46-116 [facility] ALT [Catalytic activity/Vol] 21 U/L 16-63 [facility] AST [Catalytic activity/Vol] 22 U/L 15-37 [facility] Bilirubin [Mass/Vol] 0.6 mg/dL 0.2-1.0 [facility] Calcium [Mass/Vol] 8.9 mg/dL 8.5-10.1 [facility] Chloride [Moles/Vol] 107 mmol/L 98-107 [facility] CO2 [Moles/Vol] 17.8 mmol/L Low 21.0-32.0 [facility] Creatinine [Mass/Vol] 2.73 mg/dL High 0.70-1.30 [facility] GFR/1.73 sq M.predicted MDRD (S/P/Bld) [Vol rate/Area] 28 mL/min/{1.73_m2} Low >=60 mL/min/1.7 3m 2 [facility] Glucose [Mass/Vol] 159 mg/dL High 74-106 [facility] Potassium [Moles/Vol] 4.3 mmol/L 3.5-5.1 [facility] Protein [Mass/Vol] 6.9 g/dL 6.4-8.2 [facility] Sodium [Moles/Vol] 139 mmol/L 136-145 [facility] Urea nitrogen [Mass/Vol] 45.0 mg/dL High 7.0-18.0 [facility] Urea nitrogen/Creatinine [Mass ratio] 16.5 mg/mg [facility] Laboratory - Hematology and Cell countsOrdered By: Meghan Elizalde on 10-12-2024 Immature granulocytes/100 WBC (Bld) 0.7 % High 0.0-0.5 [facility] Leukocytes [#/volume] correc soraya for nucleated erythrocytes in Blood by Automated counOrdered By: Meghan Elizalde on 10-12-2024 WBC corrected for nucl RBC Auto (Bld) [#/Vol] 5.4 10 3/uL 4.0-11.0 [facility] Lymphocytes Auto (Bld) [#/Vo l]Ordered By: Meghan Elizalde on 10-12-2024 Lymphocytes (Bld) [#/Vol] 0.8 10 3/uL Low 1.2-3.8 [facility] Lymphocytes/100 WBC Auto (Bl d)Ordered By: Meghan Elizalde on 10-12-2024 Lymphocytes/100 WBC (Bld) 15.1 % Low 20.5-60.0 [facility] MCH Auto (RBC) [Entitic mass ]Ordered By: Meghan Elizalde on 10-12-2024 MCH (RBC) [Entitic mass] 30.1 pg 25.9-34.0 [facility] MCHC Auto (RBC) [Mass/Vol]Or dered By: Meghan Elizalde on 10-12-2024 MCHC (RBC) [Mass/Vol] 34.0 g/dL 29.9-35.2 [facility] MCV Auto (RBC) [Entitic vol] Ordered By: Meghan Elizalde on 10-12-2024 MCV (RBC) [Entitic vol] 88.6 fL 80.0-94.0 [facility] Monocytes Auto (Bld) [#/Vol] Ordered By: Meghan Elizalde on 10-12-2024 Monocytes (Bld) [#/Vol] 0.7 10 3/uL 0.3-0.8 [facility] Monocytes/100 WBC Auto (Bld) Ordered By: Meghan Elizalde on 10-12-2024 Monocytes/100 WBC (Bld) 12.7 % High 1.7-12.0 [facility] Neutrophils Auto (Bld) [#/Vo l]Ordered By: Meghan Elizalde on 10-12-2024 Neutrophils (Bld) [#/Vol] 3.8 10 3/uL 1.4-6.5 [facility] Neutrophils/100 WBC Auto (Bl d)Ordered By: Meghan Elizalde on 10-12-2024 Neutrophils/100 WBC (Bld) 71.1 % 43.0-75.0 [facility] No Panel InformationOrdered By: Meghan Elizalde on 10-12-2024 Eosinophils # (Auto) 0.0 10 3/uL 0.0-0.7 [facility] Immature Granulocyte # (Auto) 0.04 10 3/uL High 0.00-0.03 [facility] Platelet mean volume Auto (B ld) [Entitic vol]Ordered By: Meghan Elizalde on 10-12-2024 Platelet mean volume (Bld) [Entitic vol] 9.5 fL 9.5-13.5 [facility] Platelets Auto (Bld) [#/Vol] Ordered By: Meghan Elizalde on 10-12-2024 Platelets (Bld) [#/Vol] 242 10 3/uL 150-450 [facility] RBC Auto (Bld) [#/Vol]Ordere d By: Meghan Elizalde on 10-12-2024 RBC (Bld) [#/Vol] 3.59 10 6/uL Low 4.70-6.10 [facility] Serum or plasma albumin/glob ulin mass ratioOrdered By: Meghan Elizalde on 10-12-2024 Albumin/Globulin [Mass ratio] 0.7 {ratio} [facility] Serum or plasma anion gap de terminationOrdered By: Meghan Elizalde on 10-12-2024 Anion gap [Moles/Vol] 18.5 mmol/L [facility] Basophils Auto (Bld) [#/Vol] Ordered By: Lyssa Marker on 10-11-2024 Basophils (Bld) [#/Vol] 0.0 10 3/uL 0.0-0.1 [facility] Basophils/100 WBC Auto (Bld) Ordered By: Lyssa Marker on 10-11-2024 Basophils/100 WBC (Bld) 0.1 % Low 0.2-2.0 [facility] Eosinophils/100 WBC Auto (Bl d)Ordered By: Lyssa Marker on 10-11-2024 Eosinophils/100 WBC (Bld) 0.6 % Low 0.9-7.0 [facility] Erythrocyte distribution wid th Auto (RBC) [Ratio]Ordered By: Lyssa Marker on 10-11-2024 Erythrocyte distribution width (RBC) [Ratio] 14.6 % 11.0-15.0 [facility] Estimated glomerular filtrat ion rate (GFR) non- AmericanOrdered By: Lyssa Marker on 10-11-2024 GFR/1.73 sq M.predicted among non-blacks MDRD (S/P/Bld) [Vol rate/Area] 19 mL/min/{1.73_m2} Low >=60 mL/min/1.7 3m 2 [facility] Globulin Calc (S) [Mass/Vol] Ordered By: Lyssa Marker on 10-11-2024 Globulin (S) [Mass/Vol] 4.9 g/dL [facility] Hematocrit Auto (Bld) [Volum e fraction]Ordered By: Lyssa Marker on 10-11-2024 Hematocrit (Bld) [Volume fraction] 36.7 % Low 42.0-54.0 [facility] Hemoglobin [Mass/volume] in BloodOrdered By: Lyssa Marker on 10-11-2024 Hemoglobin (Bld) [Mass/Vol] 12.4 g/dL Low 14.0-18.0 [facility] Iron binding capacity [Mass/ volume] in Serum or PlasmaOrdered By: Meghan Elizalde on 10-11-2024 Iron binding capacity [Mass/Vol] 231.0 ug/dL Low 250.0-450. 0 [facility] Iron saturation [Mass Fracti on] in Serum or PlasmaOrdered By: Meghan Elizalde on 10-11-2024 Iron saturation [Mass fraction] 12.1 % [facility] Laboratory - Chemistry and C hemistry - challengeOrdered By: Lyssa Marker on 10-11-2024 Albumin [Mass/Vol] 3.3 g/dL Low 3.4-5.0 [facility] ALP [Catalytic activity/Vol] 108 U/L 46-116 [facility] ALT [Catalytic activity/Vol] 26 U/L 16-63 [facility] AST [Catalytic activity/Vol] 27 U/L 15-37 [facility] Bilirubin [Mass/Vol] 0.8 mg/dL 0.2-1.0 [facility] Calcium [Mass/Vol] 9.4 mg/dL 8.5-10.1 [facility] Chloride [Moles/Vol] 102 mmol/L 98-107 [facility] CO2 [Moles/Vol] 22.8 mmol/L 21.0-32.0 [facility] Creatinine [Mass/Vol] 3.23 mg/dL High 0.70-1.30 [facility] GFR/1.73 sq M.predicted MDRD (S/P/Bld) [Vol rate/Area] 23 mL/min/{1.73_m2} Low >=60 mL/min/1.7 3m 2 [facility] Glucose [Mass/Vol] 139 mg/dL High 74-106 [facility] Lactate [Moles/Vol] 1.3 mmol/L 0.4-2.0 [facility] Magnesium [Mass/Vol] 2.2 mg/dL 1.8-2.4 [facility] Natriuretic peptide B (Bld) [Mass/Vol] 2625.0 pg/mL Critically high <=900.0 [facility] Comment on above: RESULTS CALLED TO SULEMA LUNA RN @BY Chelsey Velazquez [phone] Potassium [Moles/Vol] 4.2 mmol/L 3.5-5.1 [facility] Protein [Mass/Vol] 8.2 g/dL 6.4-8.2 [facility] Sodium [Moles/Vol] 137 mmol/L 136-145 [facility] Urea nitrogen [Mass/Vol] 48.0 mg/dL High 7.0-18.0 [facility] Urea nitrogen/Creatinine [Mass ratio] 14.9 mg/mg [facility] Bilirubin Ql (U) Negative NEGATIVE [facility] Glucose (U) [Mass/Vol] mg/dL Abnormal NEGATIVE [facility] Ketones Ql (U) TRACE mg/dL Abnormal NEGATIVE [facility] pH (U) 6.0 [pH] 5.0-9.0 [facility] Specific gravity (U) [Rel density] 1.025 1.005-1.02 5 [facility] Urobilinogen Qn (U) 1.0 {Luisito'U}/dL 0.2-1.0 [facility] Laboratory - Chemistry and C hemistry - challengeOrdered By: Meghan Elizalde on 10-11-2024 Iron [Mass/Vol] 28.0 ug/dL Low 65.0-175.0 [facility] Laboratory - Hematology and Cell countsOrdered By: Lyssa Marker on 10-11-2024 Immature granulocytes/100 WBC (Bld) 0.7 % High 0.0-0.5 [facility] Laboratory - Specimen inform ationOrdered By: Lyssa Marker on 10-11-2024 Appearance (U) CLEAR CLEAR [facility] Color (U) YELLOW YELLOW [facility] Laboratory - UrinalysisOrder ed By: Lyssa Marker on 10-11-2024 Amorphous sediment LM Ql (Urine sed) RARE [facility] Leukocyte esterase Test strip Ql (U) SMALL Abnormal NEGATIVE [facility] Mucus Ql (Urine sed) NONE SEEN NONE SEEN [facility] Nitrite Ql (U) Negative NEGATIVE [facility] Protein Ql (U) >=300 mg/dL Abnormal NEG/TRACE [facility] Leukocytes [#/volume] correc soraya for nucleated erythrocytes in Blood by Automated counOrdered By: Lyssa Marker on 10-11-2024 WBC corrected for nucl RBC Auto (Bld) [#/Vol] 6.9 10 3/uL 4.0-11.0 [facility] Lymphocytes Auto (Bld) [#/Vo l]Ordered By: Lyssa Marker on 10-11-2024 Lymphocytes (Bld) [#/Vol] 1.0 10 3/uL Low 1.2-3.8 [facility] Lymphocytes/100 WBC Auto (Bl d)Ordered By: Lyssa Marker on 10-11-2024 Lymphocytes/100 WBC (Bld) 14.0 % Low 20.5-60.0 [facility] MCH Auto (RBC) [Entitic mass ]Ordered By: Lyssa Marker on 10-11-2024 MCH (RBC) [Entitic mass] 30.0 pg 25.9-34.0 [facility] MCHC Auto (RBC) [Mass/Vol]Or dered By: Lyssa Marker on 10-11-2024 MCHC (RBC) [Mass/Vol] 33.8 g/dL 29.9-35.2 [facility] MCV Auto (RBC) [Entitic vol] Ordered By: Lyssa Marker on 10-11-2024 MCV (RBC) [Entitic vol] 88.6 fL 80.0-94.0 [facility] Monocytes Auto (Bld) [#/Vol] Ordered By: Lyssa Marker on 10-11-2024 Monocytes (Bld) [#/Vol] 0.8 10 3/uL 0.3-0.8 [facility] Monocytes/100 WBC Auto (Bld) Ordered By: Lyssa Marker on 10-11-2024 Monocytes/100 WBC (Bld) 11.0 % 1.7-12.0 [facility] Neutrophils Auto (Bld) [#/Vo l]Ordered By: Lyssa Marker on 10-11-2024 Neutrophils (Bld) [#/Vol] 5.1 10 3/uL 1.4-6.5 [facility] Neutrophils/100 WBC Auto (Bl d)Ordered By: Lyssa Marker on 10-11-2024 Neutrophils/100 WBC (Bld) 73.6 % 43.0-75.0 [facility] No Panel InformationOrdered By: Meghan Elizalde on 10-11-2024 Miscellaneous Test COMMENT . [facility] Comment on above: Test Ordered: [id number] FerritinFerritin 834 [H ] ng/mL CB Reference Range: 30-400Performed at: CB - [facility] [address] [id number] Director: Kwaku Park PhD, Phone: [phone] No Panel InformationOrdered By: Lyssa Marker on 10-11-2024 Eosinophils # (Auto) 0.0 10 3/uL 0.0-0.7 [facility] Immature Granulocyte # (Auto) 0.05 10 3/uL High 0.00-0.03 [facility] Troponin I High Sensitivity 18.2 pg/mL 4.0-76.1 [facility] Comment on above: CUT-OFF POINTS HAVE BEEN [...] Urine Bacteria MODERATE #/HPF Abnormal NONE SEEN [facility] Urine Culture Reflexed YES-[facility] Urine Occult Blood LARGE Abnormal NEGATIVE [facility] Urine Other Casts NONE SEEN #/LPF NONE SEEN [facility] Urine Other Crystals Seen #/HPF Abnormal None Seen [facility] Urine RBC NONE SEEN #/HPF 0-2 [facility] Urine Squamous Epithelial Cells FEW #/LPF Abnormal NONE/RARE [facility] Urine WBC 75-100 #/HPF Abnormal NONE SEEN [facility] Platelet mean volume Auto (B ld) [Entitic vol]Ordered By: Lyssa Marker on 10-11-2024 Platelet mean volume (Bld) [Entitic vol] 9.3 fL Low 9.5-13.5 [facility] Platelets Auto (Bld) [#/Vol] Ordered By: Lyssa Marker on 10-11-2024 Platelets (Bld) [#/Vol] 253 10 3/uL 150-450 [facility] RBC Auto (Bld) [#/Vol]Ordere d By: Lyssa Marker on 10-11-2024 RBC (Bld) [#/Vol] 4.14 10 6/uL Low 4.70-6.10 [facility] Serum or plasma albumin/glob ulin mass ratioOrdered By: Lyssa Marker on 10-11-2024 Albumin/Globulin [Mass ratio] 0.7 {ratio} [facility] Serum or plasma anion gap de terminationOrdered By: Lyssa Marker on 10-11-2024 Anion gap [Moles/Vol] 16.4 mmol/L [facility] Urine Cultureon 10-11-2024 Bacteria identified Cx Nom (U) ORGANISM: Serratia marcescens (O:SERMAR) [place] Count <10,000 ORGANISM: Klebsiella oxytoca (O:KLEOXY) [place] Count >100,000 Aerobic MALCOLM Charge (NMIC56) SUSCEPTIBILITY [...] RESISTANT TO ALL B-LACTAM DRUGS. PERFORMED BY: [facility] [address] [place] [address] PATHOLOGIST MANUFACTURING INTERN CARSON ADAMES M.D. Normal [facility] Comment on above: Performed By: #### C UU #### [place] [id number] [facility] 36on 10-09-2024 36 Called and spoke to patient - advised Dr. Miles will prescribe oxybutin - patient verbalized understanding. Advised patient needs scheduled for another TURBT restaging in 6 weeks. Scheduled for 11/11/24 [facility] 36on 10-08-2024 36 Since catheter has b een removed after TURBT, pt feels like he is emptying well and the flow is good, however he is complaining of bladder spasms and leaking urine without notice. Pt was wondering if there was a prescription that can be ordered for him. This will be discussed with Dr. Miles and patient was informed he would receive a call back with his response. Pt verbalized understanding. Normal [facility] Office Visiton 10-08-2024 Follow-up visit [id number] Lani Lizama 1950 M Date Provider Department Center 10/08/2024 271-PINKY BISHOP CARD [facility] Family History Problem Relation Age of Onset Heart attack Mother Other Father Other Brother Heart attack Maternal Grandmother Heart attack Maternal Grandfather Family Status - Relation Status Age at Mother Father Brother Maternal Grandmother Maternal Grandfather Level of Service:69749 SD OFFICE/OUTPATIENT ESTABLISHED LOW MDM 20 MIN Normal [facility] HISTOLOGY - TISSUE EXAMon LAB AP CASE REPORT Normal [facility] Comment on above: Order Comment: Pre-o p diagnosis:Lesion of bladder [N32.9] Result Comment: Surg ical Pathology Case: [id number] Authorizing Provider: Last Miles MD Collected: 09/29/2024 1432 [facility] Received: 09/29/2024 1514 Pathologist: Kevin Dawson MD Specimen: Urinary Bladder, Bladder Tumor Performed By: #### L AB17 #### [facility] ([facility] [address] [facility] [place] [address] LAB AP CLINICAL INFORMATION [facility] Comment on above: Order Comment: Pre-o p diagnosis:Lesion of bladder [N32.9] Result Comment: Post -Op Diagnoses N32.9 - Lesion of bladder [ICD-10-CM] Performed By: #### L AB17 #### [facility] ([facility]) [address] [facility] [place] [address] LAB AP DIAGNOSIS COMMENT This case was reviewed in intradepartmental consensus with agreement of the diagnosis. [facility] Comment on above: Order Comment: Pre-o p diagnosis:Lesion of bladder [N32.9] Performed By: #### L AB17 #### [facility] ([facility]) [address] [facility] [place] [address] LAB AP GROSS DESCRIPTION [facility] Comment on above: Order [...] submitted in 3 cassettes. Sangeetha Muro, Pathologists' Public Health Sanitarian student Hugo Suárez, Pathologists' Public Health Sanitarian Performed By: #### L AB17 #### [facility] ([facility]) [address] [place] [address] LAB AP MICROSCOPIC DESCRIPTION Microscopic examination performed. [facility] Comment on above: Order Comment: Pre-o p diagnosis:Lesion of bladder [N32.9] Performed By: #### L AB17 #### [facility] ([facility]) [address] [facility] [place] [address] LAB AP PRELIMINARY DIAGNOSIS [facility] Comment on above: Order Comment: Pre-o p diagnosis:Lesion of bladder [N32.9] Performed By: #### L AB17 #### [facility] ([facility]) [address] [facility] [place] [address] LAB AP REPORT FINAL DIAGNOSIS NARRATIVE [facility] Comment on above: Order Comment: Pre-o p diagnosis:Lesion of bladder [N32.9] Result Comment: A. B ladder tumor, transurethral resection: - Invasive high-grade papillary urothelial carcinoma. - Small fragments of muscularis propria present, uninvolved by neoplasm. - See synoptic report. at 1104 EDT Performed By: #### L AB17 #### [facility] ([facility] [address] [place] [address] LAB AP SYNOPTIC CHECKLIST Normal [facility] Comment on above: Order Comment: Pre-o [...] specimen Performed By: #### L AB17 #### [facility] (BEAKER) [address] [place] [address] HPon 09-29-2024 HP ------ -- Attestation signed by Last Miles MD at 09/30/2024 9:27 AM By using [...] to the plan. Marquis Baltazar MD 09/29/2024 [facility] NON-GLYCERIN OPERATOR CYTOLOGY - CELLULAR EXAMon 09-29-2024 LAB AP CASE REPORT Normal [facility] Comment on above: Order Comment: Pre-o p diagnosis:Lesion of bladder [N32.9] Result Comment: Non- gynecologic Cytology Case: [id number] Authorizing Provider: Last Miles MD Collected: 09/29/2024 1415 [facility] Received: 09/30/2024 0804 Pathologist: Omayra Sullivan MD Specimen: Urine Performed By: #### L AB13 ####[facility] (BEAKER)[address] [place] [address] LAB AP CLINICAL INFORMATION Normal [facility] Comment on above: Order Comment: Pre-o p diagnosis:Lesion of bladder [N32.9] Result Comment: Post -Op Diagnoses N32.9 - Lesion of bladder [ICD-10-CM] Performed By: #### L AB13 ####[facility] (BEAKER)[address] [place] [address] LAB AP DIAGNOSIS COMMENT See also concurrent surgical case, [id number]. Normal [facility] Comment on above: Order Comment: Pre-o p diagnosis:Lesion of bladder [N32.9] Performed By: #### L AB13 ####[facility] ([facility])[address] [place] [address] LAB AP GROSS DESCRIPTION [facility] Comment on above: Order Comment: Pre-o p diagnosis:Lesion of bladder [N32.9] Result Comment: 80 m L clear, yellow fluid Performed By: #### L AB13 ####[facility] ([facility])[address] [place] [address] LAB AP REPORT FINAL DIAGNOSIS NARRATIVE [facility] Comment on above: Order Comment: Pre-o p diagnosis:Lesion of bladder [N32.9] Result Comment: Val gaitan, cystoscopic: - Atypical urothelial cells. - Marked acute inflammation. 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 at 1805 EDT Performed By: #### L AB13 ####[facility] ([facility])[address] [place] [address] OPNOTEon 09-29-2024 OPNOTE TURBT (TRANSURETHRAL RESECTION OF BLADDER TUMOR) Operative Note Date: 09/29/2024 [facility] Name: Lani Lizama, : 1950, Diagnosis Pre-op Diagnosis * Lesion of bladder [N32.9] Post-op Diagnosis * Lesion of bladder [N32.9] Procedures TURBT (TRANSURETHRAL RESECTION OF BLADDER TUMOR) [address]8822 - [place] CYSTOURETHROSCOPY W/DEST &/RMVL MED BLADDER MARIO Surgeons Primary: Last Miles MD Resident - Assisting: Marquis Baltazar MD [...] Frozen? Priority Lab ID A Urine Urine NON-GLYCERIN OPERATOR CYTOLOGY - CELLULAR EXAM Last Miles MD 09/29/24 1415 B Urinary Bladder Tissue HISTOLOGY - TISSUE EXAM Last Miles MD 09/29/24 1432 No [id number] Description: Bladder Tumor Staff: Washer And Crusher Tender: Destiney Whitney RN; Juli Byrnes; Ani Floyd [...] mass along the left lateral wall 16 Serbian Rg catheter placed Gemcitabine to perform given postop. Complications: None; patient tolerated the procedure well. Disposition: PACU - hemodynamically stable. Condition: stable Last Miles . Procedure Attestation Level of Attending Supervision for Procedure I was present for the entire procedure Normal [facility] POCT GLUCOSE METER UNSOLICIT ED RESULTSon 09-29-2024 Glucose [Mass/Vol] 143 mg/dL High 70-105 [facility] Comment on above: Order Comment: Waive d Testing in the ED is performed under the ED CLIA certificate #[id number]. Result Comment: [email or web address] [email or web address] Performed By: #### L [id number] #### [facility] (BEAKER) [address] [place] [address] Glucose [Mass/Vol] 211 mg/dL High 70-105 [facility] Comment on above: Order Comment: Waive d Testing in the ED is performed under the ED CLIA certificate #[id number]. Result Comment: [email or web address] [email or web address] Performed By: #### L [id number] #### [facility] ([facility]) [address] [place] [address] Glucose mean value [Mass/vol ume] in Blood Estimated from glycated hemoglobinOrdered By: Outside Provider on 09-26-2024 Average glucose Estimated from glycated hemoglobin (Bld) [Mass/Vol] 166 mg/dL [facility] Hemoglobin A1c percentageOrd ered By: Outside Provider on 09-26-2024 HbA1c (Bld) [Mass fraction] 7.4 % High 4.5-6.2 [facility] Comment on above: ADA RECOMMENDED LIMI T 4.0 - 6.0ADA THERAPEUTIC TARGET < 7.0ACTION SUGGESTED> 7.0 HPon 09-25-2024 HP Pre-Anesthesia Clini c 09/25/24 Pt presents for Pre Anesthesia Clinic visit with son. Pt is scheduled 09/29/[address] Miles to under go procedure: TURBT under General on 09/29/24. Harley Crespo, DO [address] [facility] [address] [facility][id number] - [place] - [address] [facility] [address] [facility] [address] [facility] - [place], [place] - [address] [place] [address] [place] [address] [facility] [address] Subjective Vitals: 09/25/24 0856 BP: 153/74 Pulse: 80 Resp: 18 Temp: 36.3 ???C (97.4 ???F) SpO2: 98% Allergies[1] Medication Documentation Review Audit Reviewed by Lavern Mi MA (Furs Salesperson) on 08/28/24 at 0832 Medication Order Taking? Sig Documenting Provider Last Dose Status ALPRAZolam (Xanax) 0.5 mg tablet [id number] Take 1 tablet by mouth in the morning, afternoon, and at bedtime. Historical ProviderMD Active amLODIPine (Norvasc) 5 mg tablet [id number] Take 1 tablet (5 mg) by mouth in the morning for 30 doses. Graeme Sorensen MD Active aspirin 81 mg chewable tablet [id number] Chew 1 tablet every day by oral route. Historical ProviderMD Active cholecalciferol (Vitamin D3) 25 MCG (1000 units) tablet [id number] Take 1,000 Units by mouth in the morning. Historical ProviderMD Active clopidogrel (Plavix) 75 mg tablet [id number] Take 1 tablet by mouth in the morning. Racquel ProviderMD Active docusate sodium (Colace) 100 mg capsule [id number] Take 100 mg by mouth in the morning. Racquel ProviderMD Active empagliflozin (Jardiance) 10 mg [id number] Take 1 tablet every day by oral route. Racquel ProviderMD Active insulin aspart (NovoLOG) 100 unit/mL injection vial [id number] Inject 10 Units under the skin with breakfast, with lunch, and with evening meal. Sliding scale Racquel ProviderMD Active insulin detemir (Levemir) 100 unit/mL injection [id number] Inject 5 Units under the skin two times daily. Historical ProviderMD Active isosorbide mononitrate ER (Imdur) 60 mg 24 hr tablet [id number] Take 1 tablet (60 mg) by mouth 2 times daily. Carlos A Duarte MD 08/20/242358 metoprolol succinate XL (Toprol-XL) 50 mg 24 hr tablet [id number] Take 3 tablets (150 mg) by mouth in the morning for 97 doses. Do not crush or chew. Aramis Sellers MD 08/20/242358 nitroglycerin (Nitrostat) 0.[id number] 1 TABLET UNDER TONGUE EVERY 5 MINS, UP TO 3 DOSES NEEDED FOR CHEST PAIN Pinky Bishop MD Active pantoprazole (ProtoNix) 40 mg EC tablet [id number] TAKE 1 TABLET BY MOUTH DAILY ON AN EMPTY STOMACH FOLLOWED BY BREAKFAST 30 MINUTES AFTER Historical ProviderMD Active ranolazine (Ranexa) 500 mg 12 hr tablet [id number] Take 1 tablet (500 mg) by mouth two times daily. Do not crush, chew, or split. Pinky Bishop MD Active rosuvastatin (Crestor) 40 mg tablet [id number] TAKE 1 TABLET BY MOUTH AT BEDTIME Kevin Arteaga MD Active spironolactone (Aldactone) 25 mg tablet [id number] Take 1 tablet (25 mg) by mouth in the morning. Pinky Bishop MD Active thiamine (Vitamin B-1) 100 mg tablet [id number] Take 100 mg by mouth every other day. Historical ProviderMD Active thiamine (Vitamin B-1) 250 mg tablet [id number] Take 250 mg by mouth every other day. Historical ProviderMD Active Immunization History Administered Date(s) Administered Influenza Whole 01/19/2008 Influenza, High Dose Seasonal, Preservative Free 01/16/2017 Influenza, Seasonal, Quadrivalent, Adjuvanted 12/15/2021 Influenza, injectable, quadrivalent, preservative free 11/30/2016 Influenza, seasonal, injectable 12/13/2010, 01/23/2012 Influenza, trivalent, adjuvanted 01/17/2018 Novel [id number], preservative-free 01/27/2009 Pfizer SARS-CoV-2 Vaccination 05/30/2020, 06/21/2020, 02/21/2021 Pneumococcal Conjugate PCV 13 11/14/2016 Pneumococcal Polysaccharide PPV23 04/02/2016, 01/17/2018 Problem List[2] There are no diagnoses linked to this encounter. History Medical History[3] Surgical History[4] HPI Lani Lizama is a 73 y.o. year old male patient who presents for Pre Anesthesia Clinic visit with son. Pt is scheduled 09/29/[address] Miles to under go procedure: TURBT under General on 09/29/24. Pt denies hx of anesthesia complications: malignant hyperthermia, serotonin syndrome or severe PONV. Pt also denies family hx of anesthesia complications. Pt has full upper denture and missing lower molars bilateral. Pt reports had recent labs done at [facility]. PAC - RN to obtain results of preop labs. EKG on 08/13/24 : Biventricular Pacer Patient was recently hospitalized on 08/14/24 with NSTEMI and ideally needed coronary angiogram, however patient referred to be discharged. Medications were adjusted particular Norvasc added to his regimen and he was discharged on (more content not included)... Normal [facility] Orders Onlyon 09-25-2024 Orders Only [id number] Lani Lizama Nakul 1950 M Date Provider Department Center 09/25/2024 Zeinab-ALEX FOX [facility] Family History Problem Relation Age of Onset Heart attack Mother Other Father Other Brother Heart attack Maternal Grandmother Heart attack Maternal Grandfather Family Status - Relation Status Age at Mother Father Brother Maternal Grandmother Maternal Grandfather [facility] Orders Only [id number] Lani Lizama Nakul 1950 M Date Provider Department Center 09/25/2024 2004-LATONYA RAMESH [facility] C Family History Problem Relation Age of Onset Heart attack Mother Other Father Other Brother Heart attack Maternal Grandmother Heart attack Maternal Grandfather Family Status - Relation Status Age at Mother Father Brother Maternal Grandmother Maternal Grandfather [facility] Orders Only [id number] MegaLani Mota 1950 M Date Provider Department Center 09/25/2024 ROCIO HERNANDEZ [facility] C Family History Problem Relation Age of Onset Heart attack Mother Other Father Other Brother Heart attack Maternal Grandmother Heart attack Maternal Grandfather Family Status - Relation Status Age at Mother Father Brother Maternal Grandmother Maternal Grandfather [facility] Orders Only [id number] Lani Lizama 1950 M Date Provider Department Center 09/25/2024 Luba-ROCIO GONZALEZ [facility] Family History Problem Relation Age of Onset Heart attack Mother Other Father Other Brother Heart attack Maternal Grandmother Heart attack Maternal Grandfather Family Status - Relation Status Age at Mother Father Brother Maternal Grandmother Maternal Grandfather [facility] Pre-Admission Testingon 08-31 Pre-Admission Testing [id number] [place] Lizama A 1950 Date Provider Department Center 09/25/2024 [id number] Family History Problem Relation Age of Onset Heart attack Mother Other Father Other Brother Heart attack Maternal Grandmother Heart attack Maternal Grandfather Family Status - Relation Status Age at Mother Father Brother Maternal Grandmother Maternal Grandfather [facility] 36on 09-21-2024 36 Patient would like p re lab order to be faxed to [employer] fax#[phone]. Thank you This phone message was created by the Ambulatory float staff. If you need operations support specialist follow up regarding this patient, please make your appropriate clinic staff member aware. Thank you. [facility] Activated partial thrombopla stin time (aPTT) in platelet poor plasma by coagulation aOrdered By: Jackson Miles on 09-21-2024 aPTT Coag (PPP) [Time] 27.6 s 22.3-36.2 [facility] Basophils Auto (Bld) [#/Vol] Ordered By: Jackson Miles on 09-21-2024 Basophils (Bld) [#/Vol] 0.1 10 3/uL 0.0-0.1 [facility] Basophils/100 WBC Auto (Bld) Ordered By: Jackson Miles on 09-21-2024 Basophils/100 WBC (Bld) 0.6 % 0.2-2.0 [facility] Eosinophils/100 WBC Auto (Bl d)Ordered By: Jackson Miles on 09-21-2024 Eosinophils/100 WBC (Bld) 3.4 % 0.9-7.0 [facility] Erythrocyte distribution wid th Auto (RBC) [Ratio]Ordered By: Jackson Miles on 09-21-2024 Erythrocyte distribution width (RBC) [Ratio] 14.0 % 11.0-15.0 [facility] Estimated glomerular filtrat ion rate (GFR) non- AmericanOrdered By: Arlen Kwong on 09-21-2024 GFR/1.73 sq M.predicted among non-blacks MDRD (S/P/Bld) [Vol rate/Area] 34 mL/min/{1.73_m2} Low >=60 mL/min/1.7 3m 2 [facility] Globulin Calc (S) [Mass/Vol] Ordered By: Arlen Kwong on 09-21-2024 Globulin (S) [Mass/Vol] 3.7 g/dL [facility] Hematocrit Auto (Bld) [Volum e fraction]Ordered By: Jackson Miles on 09-21-2024 Hematocrit (Bld) [Volume fraction] 41.0 % Low 42.0-54.0 [facility] Hemoglobin [Mass/volume] in BloodOrdered By: Jackson Miles on 09-21-2024 Hemoglobin (Bld) [Mass/Vol] 13.5 g/dL Low 14.0-18.0 [facility] INR in Platelet poor plasma by Coagulation assayOrdered By: Jackson Miles on 09-21-2024 INR Coag (PPP) [Relative time] 1.06 {INR} [facility] Comment on above: DESIRED INR:2.0-3.0 CONDITIONS NOT LISTED BELOW2.5-3.5 FOR PROSTHETIC HEART VALVE REPLACEMENT2.5-3.5 RECURRENT THROMBOSIS Laboratory - Chemistry and C hemistry - challengeOrdered By: Arlen Kwong on 09-21-2024 Albumin [Mass/Vol] 3.7 g/dL 3.4-5.0 [facility] ALP [Catalytic activity/Vol] 135 U/L High 46-116 [facility] ALT [Catalytic activity/Vol] 25 U/L 16-63 [facility] AST [Catalytic activity/Vol] 19 U/L 15-37 [facility] Bilirubin [Mass/Vol] 0.6 mg/dL 0.2-1.0 [facility] Calcium [Mass/Vol] 8.9 mg/dL 8.5-10.1 [facility] Chloride [Moles/Vol] 104 mmol/L 98-107 [facility] CO2 [Moles/Vol] 26.0 mmol/L 21.0-32.0 [facility] Creatinine [Mass/Vol] 1.95 mg/dL High 0.70-1.30 [facility] GFR/1.73 sq M.predicted MDRD (S/P/Bld) [Vol rate/Area] 41 mL/min/{1.73_m2} Low >=60 mL/min/1.7 3m 2 [facility] Glucose [Mass/Vol] 348 mg/dL High 74-106 [facility] Potassium [Moles/Vol] 4.5 mmol/L 3.5-5.1 [facility] Protein [Mass/Vol] 7.4 g/dL 6.4-8.2 [facility] Sodium [Moles/Vol] 140 mmol/L 136-145 [facility] Urea nitrogen [Mass/Vol] 30.0 mg/dL High 7.0-18.0 [facility] Urea nitrogen/Creatinine [Mass ratio] 15.4 mg/mg [facility] Laboratory - Hematology and Cell countsOrdered By: Jackson Miles on 09-21-2024 Immature granulocytes/100 WBC (Bld) 0.4 % 0.0-0.5 [facility] Leukocytes [#/volume] correc soraya for nucleated erythrocytes in Blood by Automated counOrdered By: Jackson Miles on 09-21-2024 WBC corrected for nucl RBC Auto (Bld) [#/Vol] 8.5 10 3/uL 4.0-11.0 [facility] Lymphocytes Auto (Bld) [#/Vo l]Ordered By: Jacksondick Causeynna on 09-21-2024 Lymphocytes (Bld) [#/Vol] 1.7 10 3/uL 1.2-3.8 [facility] Lymphocytes/100 WBC Auto (Bl d)Ordered By: Jackson Ekwenna on 09-21-2024 Lymphocytes/100 WBC (Bld) 20.1 % Low 20.5-60.0 [facility] MCH Auto (RBC) [Entitic mass ]Ordered By: Jackson Ekwenna on 09-21-2024 MCH (RBC) [Entitic mass] 29.7 pg 25.9-34.0 [facility] MCHC Auto (RBC) [Mass/Vol]Or dered By: Jackson Ekwenna on 09-21-2024 MCHC (RBC) [Mass/Vol] 32.9 g/dL 29.9-35.2 [facility] MCV Auto (RBC) [Entitic vol] Ordered By: Jacksonjose Bonillaa on 09-21-2024 MCV (RBC) [Entitic vol] 90.1 fL 80.0-94.0 [facility] Monocytes Auto (Bld) [#/Vol] Ordered By: Jackson Ekwenna on 09-21-2024 Monocytes (Bld) [#/Vol] 0.7 10 3/uL 0.3-0.8 [facility] Monocytes/100 WBC Auto (Bld) Ordered By: Jacksonjose Causeynna on 09-21-2024 Monocytes/100 WBC (Bld) 7.8 % 1.7-12.0 [facility] Neutrophils Auto (Bld) [#/Vo l]Ordered By: Jackson Ekwenna on 09-21-2024 Neutrophils (Bld) [#/Vol] 5.7 10 3/uL 1.4-6.5 [facility] Neutrophils/100 WBC Auto (Bl d)Ordered By: Jackson Ekwenna on 09-21-2024 Neutrophils/100 WBC (Bld) 67.7 % 43.0-75.0 [facility] No Panel InformationOrdered By: Jackson Ekwenna on 09-21-2024 Eosinophils # (Auto) 0.3 10 3/uL 0.0-0.7 [facility] Immature Granulocyte # (Auto) 0.03 10 3/uL 0.00-0.03 [facility] Platelet mean volume Auto (B ld) [Entitic vol]Ordered By: Jackson Miles on 09-21-2024 Platelet mean volume (Bld) [Entitic vol] 9.3 fL Low 9.5-13.5 [facility] Platelets Auto (Bld) [#/Vol] Ordered By: Jacksonjose Miles on 09-21-2024 Platelets (Bld) [#/Vol] 205 10 3/uL 150-450 [facility] Prothrombin time (PT)Ordered By: Jackson Miles on 09-21-2024 PT Coag (PPP) [Time] 11.2 s 9.0-11.6 [facility] RBC Auto (Bld) [#/Vol]Ordere d By: Jackson Miles on 09-21-2024 RBC (Bld) [#/Vol] 4.55 10 6/uL Low 4.70-6.10 [facility] Serum or plasma albumin/glob ulin mass ratioOrdered By: Arlen Kwong on 09-21-2024 Albumin/Globulin [Mass ratio] 1.0 {ratio} [facility] Serum or plasma anion gap de terminationOrdered By: Arlen Ramírezus on 09-21-2024 Anion gap [Moles/Vol] 14.5 mmol/L [facility] Urine Cultureon 09-21-2024 Bacteria identified Cx Nom (U) >100,000 colonies/ml mixed bacterial skin contaminants 2 Days PERFORMED BY: [place] [address] PATHOLOGIST MANUFACTURING INTERN CARSON ADAMES M.D. Normal [facility] Comment on above: Performed By: #### C UU #### [address] Urine cultureOrdered By: Last Miles on 09-21-2024 Bacteria identified Cx Nom (U) 2 Days [facility] Orders Onlyon 09-18-2024 Orders Only [id number] Lani Lizama Nakul 1950 M Date Provider Department Center 09/18/20242003LATONYA BADILLO [facility] Family History Problem Relation Age of Onset Heart attack Mother Other Father Other Brother Heart attack Maternal Grandmother Heart attack Maternal Grandfather Family Status - Relation Status Age at Mother Father Brother Maternal Grandmother Maternal Grandfather Normal [facility] Orders Onlyon 09-02-2024 Orders Only [id number] Lani Lizama 1950 M Date Provider Department Center 09/02/20242003LATONYA BADILLO [facility] C Family History Problem Relation Age of Onset Heart attack Mother Other Father Other Brother Heart attack Maternal Grandmother Heart attack Maternal Grandfather Family Status - Relation Status Age at Mother Father Brother Maternal Grandmother Maternal Grandfather Normal [facility] APTTon 08-28-2024 ACTIVATED PARTIAL THROMBOPLASTIN TIME IN PPP BY COAGULATION ASSAY 29.3 Seconds Normal 25.0-35.0 [facility] Comment on above: Result Comment: Clin ical significance of the APTT is questionable in the presence of heparin. Performed By: #### L [id number] #### [facility] (BEAKER) [address] [place] [address] CBC WITH AUTO DIFFERENTIALon 08-28-2024 Basophils (Bld) [#/Vol] 0.09 10*3/uL Normal 0.00-0.20 [facility] Comment on above: Performed By: #### L [id number] #### [facility] (BEAKER) [address] [place] [address] Basophils/100 WBC (Bld) 0.9 % Normal 0.0-1.0 [facility] Comment on above: Performed By: #### L [id number] #### [facility] (BEAKER) [address] [place] [address] Eosinophils (Bld) [#/Vol] 0.17 10*3/uL Normal 0.00-0.50 [facility] Comment on above: Performed By: #### L [id number] #### [facility] (BEAKER) [address] [place] [address] Eosinophils/100 WBC (Bld) 1.8 % Normal 0.0-6.0 [facility] Comment on above: Performed By: #### L [id number] #### [facility] ([facility] [address] [place] [address] Erythrocyte distribution width (RBC) [Ratio] 14.1 % Normal 11.5-15.0 [facility] Comment on above: Performed By: #### L [id number] #### [facility] ([facility]) [address] [place] [address] ERYTHROCYTE MEAN CORPUSCULAR HEMOGLOBIN CONCENTRATION (G/DL) BY AUTOMATED 32.1 g/dL Normal 32.0-35.0 [facility] Comment on above: Performed By: #### L [id number] #### [facility] ([facility]) [address] [place] [address] Hematocrit (Bld) [Volume fraction] 44.8 % Normal 39.0-50.0 [facility] Comment on above: Performed By: #### L [id number] #### [facility] ([facility]) [address] [place] [address] Hemoglobin (Bld) [Mass/Vol] 14.4 g/dL Normal 13.0-17.0 [facility] Comment on above: Performed By: #### L [id number] #### [facility] ([facility] [address] [place] [address] Immature granulocytes (Bld) [#/Vol] 0.06 10*3/uL Normal 0.00-0.20 [facility] Comment on above: Performed By: #### L [id number] #### [facility] (BEAKER) [address] [place] [address] Immature granulocytes/100 WBC (Bld) 0.6 % Normal 0.0-1.0 [facility] Comment on above: Performed By: #### L [id number] #### [facility] (BEAKER) [address] [place] [address] Lymphocytes (Bld) [#/Vol] 1.81 10*3/uL Normal 1.20-4.00 [facility] Comment on above: Performed By: #### L [id number] #### [facility] ([facility] [address] [place] [address] Lymphocytes/100 WBC (Bld) 18.9 % Low 20.0-45.0 [facility] Comment on above: Performed By: #### L [id number] #### [facility] ([facility] [address] [place] [address] MCH (RBC) [Entitic mass] 29.2 pg Normal 27.0-33.0 [facility] Comment on above: Performed By: #### L [id number] #### [facility] ([facility]) [address] [place] [address] MCV (RBC) [Entitic vol] 90.9 fL Normal 82.0-98.0 [facility] Comment on above: Performed By: #### L [id number] #### [facility] ([facility]) [address] [place] [address] Monocytes (Bld) [#/Vol] 0.76 10*3/uL Normal 0.10-1.00 [facility] Comment on above: Performed By: #### L [id number] #### [facility] ([facility]) [address] [place] [address] Monocytes/100 WBC (Bld) 7.9 % Normal 5.0-12.0 [facility] Comment on above: Performed By: #### L [id number] #### [facility] ([facility] [address] [place] [address] Neutrophils (Bld) [#/Vol] 6.71 10*3/uL Normal 1.60-7.60 [facility] Comment on above: Performed By: #### L [id number] #### [facility] ([facility] [address] [place] [address] Neutrophils/100 WBC (Bld) 69.9 % Normal 40.0-72.0 [facility] Comment on above: Performed By: #### L [id number] #### [facility] ([facility]) [address] [place] [address] NRBC (PER 100 WBCS) BY AUTOMATED COUNT 0.0 % Normal 0 [facility] Comment on above: Performed By: #### L [id number] #### [facility] ([facility]) [address] [place] [address] PLATELETS (10*3/UL) IN BLOOD AUTOMATED COUNT 278 10*3/uL Normal 150-400 [facility] Comment on above: Performed By: #### L [id number] #### [facility] ([facility]) [address] [place] [address] RBC (Bld) [#/Vol] 4.93 10*6/uL Normal 4.20-5.70 [facility] Comment on above: Performed By: #### L [id number] #### [facility] ([facility]) [address] [place] [address] WBC (Bld) [#/Vol] 9.60 10*3/uL Normal 4.00-10.60 [facility] Comment on above: Performed By: #### L [id number] #### [facility] ([facility]) [address] [place] [address] COMPREHENSIVE METABOLIC PANE Mike 08-28-2024 Albumin [Mass/Vol] 4.5 g/dL Normal 3.5-5.7 [facility] Comment on above: Performed By: #### L [id number] #### [facility] ([facility]) [address] [place] [address] ALP [Catalytic activity/Vol] 117 U/L High 34-104 [facility] Comment on above: Performed By: #### L [id number] #### [facility] ([facility]) [address] [place] [address] ALT [Catalytic activity/Vol] 17 U/L Normal 7-52 [facility] Comment on above: Performed By: #### L [id number] #### [facility] ([facility]) [address] [place] [address] Anion gap [Moles/Vol] 11 mmol/L Normal 7-20 [facility] Comment on above: Performed By: #### L [id number] #### [facility] ([facility]) [address] [place] [address] AST [Catalytic activity/Vol] 20 U/L Normal 13-39 [facility] Comment on above: Performed By: #### L [id number] #### [facility] ([facility]) [address] [place] [address] Bilirubin [Mass/Vol] 0.6 mg/dL Normal 0.3-1.0 [facility] Comment on above: Performed By: #### L [id number] #### [facility] ([facility]) [address] [place] [address] Calcium [Mass/Vol] 9.6 mg/dL Normal 8.6-10.3 [facility] Comment on above: Performed By: #### L [id number] #### [facility] ([facility]) [address] [place] [address] Chloride [Moles/Vol] 105 mmol/L Normal 98-107 [facility] Comment on above: Performed By: #### L [id number] #### [facility] ([facility]) [address] [place] [address] CO2 [Moles/Vol] 28 mmol/L Normal 21-31 [facility] Comment on above: Performed By: #### L [id number] #### [facility] ([facility]) [address] [place] [address] Creatinine [Mass/Vol] 1.95 mg/dL High 0.70-1.30 [facility] Comment on above: Performed By: #### L [id number] #### [facility] ([facility] [address] [place] [address] GLOMERULAR FILTRATION RATE ML/MIN/1.73 SQ M.PREDICTED 35.9 mL/min/1.73m*2 Low >60.0 [facility] Comment on above: Result Comment: [facility]???s estimated glomerular filtration rate (eGFR) will [...] individuals. Performed By: #### L [id number] #### [facility] ([facility]) [address] [place] [address] Glucose [Mass/Vol] 185 mg/dL High 70-100 [facility] Comment on above: Performed By: #### L [id number] #### [facility] ([facility]) [address] [place] [address] Potassium [Moles/Vol] 5.9 mmol/L High 3.5-5.1 [facility] Comment on above: Performed By: #### L [id number] #### [facility] ([facility]) [address] [place] [address] Protein [Mass/Vol] 7.7 g/dL Normal 6.0-8.3 [facility] Comment on above: Performed By: #### L [id number] #### [facility] ([facility] [address] [place] [address] Sodium [Moles/Vol] 138 mmol/L Normal 136-145 [facility] Comment on above: Performed By: #### L [id number] #### [facility] ([facility] [address] [place] [address] Urea nitrogen [Mass/Vol] 30 mg/dL High 7-25 [facility] Comment on above: Performed By: #### L [id number] #### [facility] (BEAKER) [address] [place] [address] UREA NITROGEN/CREATININE (MASS RATIO) IN SER/PLAS 15.4 Normal [facility] Comment on above: Performed By: #### L [id number] #### [facility] (BEAKER) [address] [place] [address] Labon 08-28-2024 Lab [id number] Lani Lizama 1950 M Date Provider Department Center 08/28/2024 2[facility] Family History Problem Relation Age of Onset Heart attack Mother Other Father Other Brother Heart attack Maternal Grandmother Heart attack Maternal Grandfather Family Status - Relation Status Age at Mother Father Brother Maternal Grandmother Maternal Grandfather Normal [facility] Office Visiton 08-28-2024 Follow-up visit [id number] Lani Lizama 1950 M Date Provider Department Center 08/28/2024 [id number], OBI [facility] [place] Family History Problem Relation Age of Onset Heart attack Mother Other Father Other Brother Heart attack Maternal Grandmother Heart attack Maternal Grandfather Family Status - Relation Status Age at Mother Father Brother Maternal Grandmother Maternal Grandfather Level of Service:45148 SD OFFICE/OUTPATIENT ESTABLISHED MOD MDM 30 MIN Normal [facility] PROTIME-INRon 08-28-2024 INR IN PPP BY COAGULATION ASSAY 1.10 Normal 0.90-1.10 [facility] Comment on above: Result Comment: ACCC [...] CHEST 1995;[id number]. Performed By: #### L [id number] ####[facility] ([facility])[address] [place] [address] PROTHROMBIN TIME (PT) IN PPP BY COAGULATION ASSAY 14.2 Seconds Normal 12.3-14.8 [facility] Comment on above: Performed By: #### L [id number] ####[facility] ([facility])[address] [place] [address] PSA, SCREENINGon 08-28-2024 PROSTATE SPECIFIC AG (NG/ML) IN SER/PLAS 1.5 ng/mL Normal 0.4-4 [facility] Comment on above: Performed By: #### L [id number] #### [facility] ([facility]) [address] [place] [address] URINE CULTURE, ROUTINEon Bacteria identified Cx Nom (U) <10,000 CFU/ML No Significant Growth Normal [facility] Comment on above: Performed By: #### L [id number] ####[facility] ([facility])[address] [place] [address] Laboratory - Chemistry and C hemistry - challengeon 08-27-2024 Bilirubin Ql (U) Negative NEGATIVE [facility] Glucose (U) [Mass/Vol] mg/dL Abnormal NEGATIVE [facility] Ketones Ql (U) Negative NEGATIVE [facility] pH (U) 6.0 [pH] 5.0-9.0 [facility] Specific gravity (U) [Rel density] 1.025 1.005-1.02 5 [facility] Urobilinogen Qn (U) 1.0 {Luisito'U}/dL 0.2-1.0 [facility] Laboratory - Specimen inform ationon 08-27-2024 Appearance (U) SL CLOUDY CLEAR [facility] Color (U) YELLOW YELLOW [facility] Laboratory - Urinalysison Leukocyte esterase Test strip Ql (U) MODERATE Abnormal NEGATIVE [facility] Nitrite Ql (U) Negative NEGATIVE [facility] Protein Ql (U) >=300 mg/dL Abnormal NEG/TRACE [facility] No Panel Informationon 08-27 Urine Occult Blood LARGE Abnormal NEGATIVE [facility] Urine Cultureon 08-27-2024 Bacteria identified Cx Nom (U) <9,000 colonies/ml mixed bacterial skin contaminants 2 Days PERFORMED BY: [facility] [address] [place] [address] PATHOLOGIST MANUFACTURING INTERN CARSON ADAMES M.D. Normal [facility] Comment on above: Performed By: #### C UU #### [facility] [address] Office Visiton 08-20-2024 Follow-up visit [id number] Lani Lizama 1950 M Date Provider Department Center 08/20/2024 PINKY JULES Family History Problem Relation Age of Onset Heart attack Mother Other Father Other Brother Heart attack Maternal Grandmother Heart attack Maternal Grandfather Family Status - Relation Status Age at Mother Father Brother Maternal Grandmother Maternal Grandfather Level of Service:86062 SD OFFICE/OUTPATIENT ESTABLISHED MOD MDM 30 MIN Normal [facility] 30on 08-14-2024 30 The patient is [...] hemodynamic stability Outcome: Adequate for Discharge Normal [facility] 30 Lexiscan stress test Patient information [...] and hemodynamically stable Full final report from loan approver to follow. Juli Salazar RN [facility] Cardi[facility] Stress Lab Normal [facility] HIGH SENSITIVITY TROPONIN Io n 08-14-2024 HS TROPONIN I (NG/L) 160 ng/L Critically high <20 [facility] Comment on above: Performed By: #### L [id number] ####[facility] (RACHEL)[address] [place] [address] NURSNOTEon 08-14-2024 NURSNOTE Patient off the unit at 8:23 am for ECHO and stress test, returned to unit at 12:05 pm. Normal [facility] Orders Onlyon 08-14-2024 Orders Only [id number] Lani Lizama 1950 M Date Provider Department Center 08/14/2024 KEVIN DEMPSEY [facility] [place] HeartVAS Family History Problem Relation Age of Onset Heart attack Mother Other Father Other Brother Heart attack Maternal Grandmother Heart attack Maternal Grandfather Family Status - Relation Status Age at Mother Father Brother Maternal Grandmother Maternal Grandfather Normal [facility] POCT GLUCOSE METER UNSOLICIT ED RESULTSon 08-14-2024 Glucose [Mass/Vol] 155 mg/dL High 70-105 [facility] Comment on above: Order Comment: Waive d Testing in the ED is performed under the ED CLIA certificate #[id number]. Result Comment: dcun dic Performed By: #### L [id number] #### [facility] ([facility]HEL) [address] [place] [address] Glucose [Mass/Vol] 251 mg/dL High 70-105 [facility] Comment on above: Order Comment: Waive d Testing in the ED is performed under the ED CLIA certificate #[id number]. Result Comment: jdlu gol Performed By: #### L [id number] #### [facility] (BEAKER) [address] [place] [address] Glucose [Mass/Vol] 187 mg/dL High 70-105 [facility] Comment on above: Order Comment: Waive d Testing in the ED is performed under the ED CLIA certificate #[id number]. Result Comment: jdlu gol Performed By: #### L [id number] ####[facility] (BEAKER)[address] [place] [address] 30on 08-13-2024 30 The patient is Moder [...] and behaviors that affect risk of falls [place] fall precautions as indicated by assessment Educate [...] dysrhythmias or at baseline Outcome: Progressing Normal [facility] Basophils Auto (Bld) [#/Vol] on 08-13-2024 Basophils (Bld) [#/Vol] Automated basophil count 0.0-0.1 [facility] Basophils (Bld) [#/Vol] 0.1 10 3/uL 0.0-0.1 [facility] Basophils/100 WBC Auto (Bld) on 08-13-2024 Basophils/100 WBC (Bld) Automated basophil % 0.2-2.0 [facility] Basophils/100 WBC (Bld) 0.8 % 0.2-2.0 [facility] CBC WITH AUTO DIFFERENTIALon 08-13-2024 Basophils (Bld) [#/Vol] 0.05 10*3/uL Normal 0.00-0.20 [facility] Comment on above: Performed By: #### L [id number] ####[facility] (BEAKER)[address] [place] [address] Basophils/100 WBC (Bld) 0.7 % Normal 0.0-1.0 [facility] Comment on above: Performed By: #### L [id number] ####[facility] (BEAKER)[address] [place] [address] Eosinophils (Bld) [#/Vol] 0.14 10*3/uL Normal 0.00-0.50 [facility] Comment on above: Performed By: #### L [id number] ####[facility] (BEAKER)[address] [place] [address] Eosinophils/100 WBC (Bld) 1.8 % Normal 0.0-6.0 [facility] Comment on above: Performed By: #### L [id number] ####[facility] (BEAKER)[address] [place] [address] Erythrocyte distribution width (RBC) [Ratio] 14.6 % Normal 11.5-15.0 [facility] Comment on above: Performed By: #### L [id number] ####[facility] (BEAKER)[address] [place] [address] ERYTHROCYTE MEAN CORPUSCULAR HEMOGLOBIN CONCENTRATION (G/DL) BY AUTOMATED 32.9 g/dL Normal 32.0-35.0 [facility] Comment on above: Performed By: #### L [id number] ####[facility] (BEAKER)[address] [place] [address] Hematocrit (Bld) [Volume fraction] 39.8 % Normal 39.0-50.0 [facility] Comment on above: Performed By: #### L [id number] ####[facility] (BEAKER)[address] [place] [address] Hemoglobin (Bld) [Mass/Vol] 13.1 g/dL Normal 13.0-17.0 [facility] Comment on above: Performed By: #### L [id number] ####[facility] (BEAKER)[address] [place] [address] Immature granulocytes (Bld) [#/Vol] 0.03 10*3/uL Normal 0.00-0.20 [facility] Comment on above: Performed By: #### L [id number] ####[facility] (BEAKER)[address] [place] [address] Immature granulocytes/100 WBC (Bld) 0.4 % Normal 0.0-1.0 [facility] Comment on above: Performed By: #### L [id number] ####[facility] (BEAKER)[address] [place] [address] Lymphocytes (Bld) [#/Vol] 1.51 10*3/uL Normal 1.20-4.00 [facility] Comment on above: Performed By: #### L [id number] ####[facility] (BEAKER)[address] [place] [address] Lymphocytes/100 WBC (Bld) 19.8 % Low 20.0-45.0 [facility] Comment on above: Performed By: #### L [id number] ####[facility] (BEAKER)[address] [place] [address] MCH (RBC) [Entitic mass] 29.3 pg Normal 27.0-33.0 [facility] Comment on above: Performed By: #### L [id number] ####[facility] (BEAKER)[address] [place] [address] MCV (RBC) [Entitic vol] 89.0 fL Normal 82.0-98.0 [facility] Comment on above: Performed By: #### L [id number] ####[facility] ([facility])[address] [place] [address] Monocytes (Bld) [#/Vol] 0.57 10*3/uL Normal 0.10-1.00 [facility] Comment on above: Performed By: #### L [id number] ####[facility] (BEAKER)[address] [place] [address] Monocytes/100 WBC (Bld) 7.5 % Normal 5.0-12.0 [facility] Comment on above: Performed By: #### L [id number] ####[facility] (BEAKER)[address] [place] [address] Neutrophils (Bld) [#/Vol] 5.32 10*3/uL Normal 1.60-7.60 [facility] Comment on above: Performed By: #### L [id number] ####[facility] ([facility] [place] [address] Neutrophils/100 WBC (Bld) 69.8 % Normal 40.0-72.0 [facility] Comment on above: Performed By: #### L [id number] ####[facility] (BEAKER)[address] [place] [address] NRBC (PER 100 WBCS) BY AUTOMATED COUNT 0.0 % Normal 0 [facility] Comment on above: Performed By: #### L [id number] ####[facility] (BEAKER)[address] [place] [address] PLATELETS (10*3/UL) IN BLOOD AUTOMATED COUNT 201 10*3/uL Normal 150-400 [facility] Comment on above: Performed By: #### L [id number] ####[facility] (BEAKER)[address] [place] [address] RBC (Bld) [#/Vol] 4.47 10*6/uL Normal 4.20-5.70 [facility] Comment on above: Performed By: #### L [id number] ####[facility] ([facility])[address] [place] [address] WBC (Bld) [#/Vol] 7.62 10*3/uL Normal 4.00-10.60 [facility] Comment on above: Performed By: #### L [id number] ####[facility] ([facility])[address] [place] [address] COMPREHENSIVE METABOLIC PANE [facility] 08-13-2024 Albumin [Mass/Vol] 4.3 g/dL Normal 3.5-5.7 [facility] Comment on above: Performed By: #### L [id number] ####[facility] ([facility])[address] [place] [address] ALP [Catalytic activity/Vol] 90 U/L Normal 34-104 [facility] Comment on above: Performed By: #### L [id number] ####[facility] ([facility] [place] [address] ALT [Catalytic activity/Vol] 15 U/L Normal 7-52 [facility] Comment on above: Performed By: #### L [id number] ####[facility] ([facility] [place] [address] Anion gap [Moles/Vol] 13 mmol/L Normal 7-20 [facility] Comment on above: Performed By: #### L [id number] ####[facility] ([facility] [place] [address] AST [Catalytic activity/Vol] 27 U/L Normal 13-39 [facility] Comment on above: Performed By: #### L [id number] ####[facility] ([facility])[address] [place] [address] Bilirubin [Mass/Vol] 0.7 mg/dL Normal 0.3-1.0 [facility] Comment on above: Performed By: #### L [id number] ####[facility] [facility] [place] [address] Calcium [Mass/Vol] 9.1 mg/dL Normal 8.6-10.3 [facility] Comment on above: Performed By: #### L [id number] ####[facility] [place] [address] Chloride [Moles/Vol] 108 mmol/L High 98-107 [facility] Comment on above: Performed By: #### L [id number] ####[facility] ([facility] [place] [address] CO2 [Moles/Vol] 21 mmol/L Normal 21-31 [facility] Comment on above: Performed By: #### L [id number] ####[facility] ([facility])[address] [place] [address] Creatinine [Mass/Vol] 1.63 mg/dL High 0.70-1.30 [facility] Comment on above: Performed By: #### L [id number] ####[facility] ([facility])[address] [place] [address] GLOMERULAR FILTRATION RATE ML/MIN/1.73 SQ M.PREDICTED 44.5 mL/min/1.73m*2 Low >60.0 [facility] Comment on above: Result Comment: [facility]???s estimated glomerular filtration rate (eGFR) will [...] of individuals. Performed By: #### L [id number] ####[facility] ([facility] [place] [address] Glucose [Mass/Vol] 165 mg/dL High 70-100 [facility] Comment on above: Performed By: #### L [id number] ####[facility] ([facility] [place] [address] Potassium [Moles/Vol] 4.7 mmol/L Normal 3.5-5.1 [facility] Comment on above: Performed By: #### L [id number] ####[facility] ([facility] [place] [address] Protein [Mass/Vol] 7.2 g/dL Normal 6.0-8.3 [facility] Comment on above: Performed By: #### L [id number] ####[facility] ([facility] [place] [address] Sodium [Moles/Vol] 137 mmol/L Normal 136-145 [facility] Comment on above: Performed By: #### L [id number] ####[facility] ([facility])[address] [place] [address] Urea nitrogen [Mass/Vol] 26 mg/dL High 7-25 [facility] Comment on above: Performed By: #### L [id number] ####[facility] ([facility])[address] [place] [address] UREA NITROGEN/CREATININE (MASS RATIO) IN SER/PLAS 16.0 Normal [facility] Comment on above: Performed By: #### L [id number] ####[facility] ([facility])[address] [place] [address] CONSULTon 08-13-2024 CONSULT ------ -- Attestation signed by Tatianna Hayward MD at 08/13/2024 7:18 PM I personally spoke with and examined Mr. Lizama with Dr. Pagan today. I then spoke with his loan approver Dr. Bishop about his longitudinal care. At [...] mildly elevated troponin. [facility] and [facility]. Patient mentioned [...] artery stenosis, Coronary artery disease, Diabetes mellitus ([facility]/HCC), Hyperlipidemia, Hypertension, PVD (peripheral vascular disease), and [...] (1000 unit (more content not included)... Normal [facility] Eosinophils/100 WBC Auto (Bl d)on 08-13-2024 Eosinophils/100 WBC (Bld) Automated eosinophil % 0.9-7.0 [facility] Eosinophils/100 WBC (Bld) 2.7 % 0.9-7.0 [facility] Erythrocyte distribution wid th Auto (RBC) [Ratio]on 08-13-2024 Erythrocyte distribution width (RBC) [Ratio] Erythrocyte distribution width [Ratio] by Automated count 11.0-15.0 [facility] Erythrocyte distribution width (RBC) [Ratio] 14.7 % 11.0-15.0 [facility] Estimated glomerular filtrat ion rate (GFR) non- Americanon 08-13-2024 GFR/1.73 sq M.predicted among non-blacks MDRD (S/P/Bld) [Vol rate/Area] Estimated glomerular filtration rate (GFR) non- Low >=60 mL/min/1.7 3m 2 [facility] GFR/1.73 sq M.predicted among non-blacks MDRD (S/P/Bld) [Vol rate/Area] 33 mL/min/{1.73_m2} Low >=60 mL/min/1.7 3m 2 [facility] Fibrin D-dimer [Presence] in Platelet poor plasma by Latex agglutinationon 08-13-2024 Fibrin D-dimer LA Ql (PPP) Fibrin D-dimer [Presence] in Platelet poor plasma by Latex agglutination Critically high <=0.59 [facility] Comment on above: RESULTS CALLED TO [...] (PPP) 0.75 mg/L FEU Critically high <=0.59 [facility] Comment on above: RESULTS CALLED TO [...] I (NG/L) 294 ng/L Critically high <20 [facility] Comment on above: Performed By: #### L [id number] ####[facility] ([facility])[address] [place] [address] Hematocrit Auto (Bld) [Volum e fraction]on 08-13-2024 Hematocrit (Bld) [Volume fraction] Hematocrit [Volume Fraction] of Blood by Automated count Low 42.0-54.0 [facility] Hematocrit (Bld) [Volume fraction] 38.9 % Low 42.0-54.0 [facility] Hemoglobin [Mass/volume] in Bloodon 08-13-2024 Hemoglobin (Bld) [Mass/Vol] Hemoglobin [Mass/volume] in Blood Low 14.0-18.0 [facility] Hemoglobin (Bld) [Mass/Vol] 13.2 g/dL Low 14.0-18.0 [facility] Laboratory - Chemistry and C hemistry - challengeon 08-13-2024 Calcium [Mass/Vol] 9.3 mg/dL 8.5-10.1 [facility] Chloride [Moles/Vol] 103 mmol/L 98-107 [facility] CO2 [Moles/Vol] 24.4 mmol/L 21.0-32.0 [facility] Creatinine [Mass/Vol] 2.02 mg/dL High 0.70-1.30 [facility] GFR/1.73 sq M.predicted MDRD (S/P/Bld) [Vol rate/Area] 40 mL/min/{1.73_m2} Low >=60 mL/min/1.7 3m 2 [facility] Glucose [Mass/Vol] 310 mg/dL High 74-106 [facility] Potassium [Moles/Vol] 3.9 mmol/L 3.5-5.1 [facility] Sodium [Moles/Vol] 137 mmol/L 136-145 [facility] Urea nitrogen [Mass/Vol] 29.0 mg/dL High 7.0-18.0 [facility] Urea nitrogen/Creatinine [Mass ratio] 14.4 mg/mg [facility] Laboratory - Hematology and Cell countson 08-13-2024 Immature granulocytes/100 WBC (Bld) 0.5 % 0.0-0.5 [facility] Leukocytes [#/volume] correc soraya for nucleated erythrocytes in Blood by Automated counon 08-13-2024 WBC corrected for nucl RBC Auto (Bld) [#/Vol] Leukocytes [#/volume] corrected for nucleated erythrocytes in Blood by Automated coun .0-11.0 [facility] WBC corrected for nucl RBC Auto (Bld) [#/Vol] 8.6 10 3/uL 4.0-11.0 [facility] Lymphocytes Auto (Bld) [#/Vo l]on 08-13-2024 Lymphocytes (Bld) [#/Vol] Lymphocytes [#/volume] in Blood by Automated count 1.2-3.8 [facility] Lymphocytes (Bld) [#/Vol] 2.0 10 3/uL 1.2-3.8 [facility] Lymphocytes/100 WBC Auto (Bl d)on 08-13-2024 Lymphocytes/100 WBC (Bld) Lymphocytes/100 leukocytes in Blood by Automated count 20.5-60.0 [facility] Lymphocytes/100 WBC (Bld) 22.6 % 20.5-60.0 [facility] MAGNESIUMon 08-13-2024 Magnesium [Mass/Vol] 1.9 mg/dL Normal 1.9-2.7 [facility] Comment on above: Performed By: #### L [id number] #### [facility] [address] [place] [address] MCH Auto (RBC) [Entitic mass ]on 08-13-2024 MCH (RBC) [Entitic mass] MCH [Entitic mass] by Automated count 25.9-34.0 [facility] MCH (RBC) [Entitic mass] 30.7 pg 25.9-34.0 [facility] MCHC Auto (RBC) [Mass/Vol]on 08-13-2024 MCHC (RBC) [Mass/Vol] MCHC [Mass/volume] by Automated count 29.9-35.2 [facility] MCHC (RBC) [Mass/Vol] 33.9 g/dL 29.9-35.2 [facility] MCV Auto (RBC) [Entitic vol] on 08-13-2024 MCV (RBC) [Entitic vol] MCV [Entitic volume] by Automated count 80.0-94.0 [facility] MCV (RBC) [Entitic vol] 90.5 fL 80.0-94.0 [facility] Monocytes Auto (Bld) [#/Vol] on 08-13-2024 Monocytes (Bld) [#/Vol] Automated blood monocyte count High 0.3-0.8 [facility] Monocytes (Bld) [#/Vol] 1.0 10 3/uL High 0.3-0.8 [facility] Monocytes/100 WBC Auto (Bld) on 08-13-2024 Monocytes/100 WBC (Bld) Automated monocyte % 1.7-12.0 [facility] Monocytes/100 WBC (Bld) 11.0 % 1.7-12.0 [facility] Neutrophils Auto (Bld) [#/Vo l]on 08-13-2024 Neutrophils (Bld) [#/Vol] Neutrophils [#/volume] in Blood by Automated count 1.4-6.5 [facility] Neutrophils (Bld) [#/Vol] 5.4 10 3/uL 1.4-6.5 [facility] Neutrophils/100 WBC Auto (Bl d)on 08-13-2024 Neutrophils/100 WBC (Bld) Automated neutrophil % 43.0-75.0 [facility] Neutrophils/100 WBC (Bld) 62.4 % 43.0-75.0 [facility] No Panel Informationon 08-13 Troponin I High Sensitivity 228.4 pg/mL Critically high 4.0-76.1 [facility] Comment on above: RESULTS CALLED TO [...] Eosinophils # (Auto) 0.2 10 3/uL 0.0-0.7 [facility] Immature Granulocyte # (Auto) 0.04 10 3/uL High 0.00-0.03 [facility] PHOSPHORUSon 08-13-2024 Magnesium [Mass/Vol] 3.6 mg/dL Normal 2.5-5.0 [facility] Comment on above: Performed By: #### L [id number] #### [facility] ([facility]) [address] [place] [address] POCT GLUCOSE METER UNSOLICIT ED RESULTSon 08-13-2024 Glucose [Mass/Vol] 104 mg/dL Normal 70-105 [facility] Comment on above: Order Comment: Waive d Testing in the ED is performed under the ED CLIA certificate #[id number]. Result Comment: [email or web address] Performed By: #### L [id number] ####[facility] ([facility])[address] [place] [address] Glucose [Mass/Vol] 207 mg/dL High 70-105 [facility] Comment on above: Order Comment: Waive d Testing in the ED is performed under the ED CLIA certificate #[id number]. Result Comment: [email or web address] Performed By: #### L [id number] ####[facility] (BEAKER)[address] [place] [address] Glucose [Mass/Vol] 160 mg/dL High 70-105 [facility] Comment on above: Order Comment: Waive d Testing in the ED is performed under the ED CLIA certificate #[id number]. Result Comment: jdlu gol Performed By: #### L [id number] #### [facility] (BE[facility]ER) [address] [place] [address] Platelet mean volume Auto (B ld) [Entitic vol]on 08-13-2024 Platelet mean volume (Bld) [Entitic vol] Platelet mean volume [Entitic volume] in Blood by Automated count 9.5-13.5 [facility] Platelet mean volume (Bld) [Entitic vol] 9.8 fL 9.5-13.5 [facility] Platelets Auto (Bld) [#/Vol] on 08-13-2024 Platelets (Bld) [#/Vol] Platelets [#/volume] in Blood by Automated count 150-450 [facility] Platelets (Bld) [#/Vol] 217 10 3/uL 150-450 [facility] RBC Auto (Bld) [#/Vol]on RBC (Bld) [#/Vol] Erythrocytes [#/volu me] in Blood by Automated count Low 4.70-6.10 [facility] RBC (Bld) [#/Vol] 4.30 10 6/uL Low 4.70-6.10 [facility] Serum or plasma anion gap de terminationon 08-13-2024 Anion gap [Moles/Vol] Serum or plasma an ion gap determination [facility] Anion gap [Moles/Vol] 13.5 mmol/L [facility] Main OR Preoperative Recordo n 08-11-2024 Main OR Preoperative Record Main OR Preoperative Record Holding Area Document Type FTURO Summary Primary Physician: Jason LARKIN MD Finalized Date/Time: 08/11/24 16:19:02 Pt. Name: LANI LIZAMA Nakul العراقي/Sex: 1950 Male Med Rec #: [id number] Physician: Jason LARKIN MD Financial #: [id number] Pt. Type: O Room/Bed: / Admit/Disch: 08/04/24 [...] Yes Last Modified By: Rose Reyna RN 08/04/24 09:24:04 Post-Care Text: The patient participates [...] SUNITA Agrawal RN, Ruthann 08/11/24 16:19 Normal [facility] Urine Cytology ([facility])on 0 08-07-2024 Microscopic exam Cytology (U) [Interp] Diagnosis Info Invalid Interpretation Code [facility] Comment on above: Result Comment: A:Ur ine,Urine:Voided Interpretation - Adequate cellularity for evaluation. CPT 69791 MicroScopic Description - Adequacy - Gross Description Site ID:A color Red fixative Alcohol Specimen designated Urine received in alcohol preservative and labeled with the patient???s name, consists of 60ml cloudy red fluid. Electronically signed by : on: 08/07/2024 13:02:18 Performed By: #### 1 [id number] #### [facility] [address] [place] [address] Main OR Intraoperative Recor don 08-04-2024 Main OR Intraoperative Record Main OR Intraoperative Record IntraOp Document Type FTURO Summary Primary Physician: Jason LARKIN MD Finalized Date/Time: 08/04/24 10:03:52 Pt. Name: LANI LIZAMA/Sex: 1950 Male Med Rec #: [id number] Physician: Jason LARKIN MD Financial #: [id number] Pt. Type: O Room/Bed: / Admit/Disch: 08/04/24 [...] Hortencia Holt Role Performed Surgeon - Primary Washer And Crusher Tender - Primary Scrub - Primary Time In 08/04/24 09:45:00 08/04/24 09:45:00 08/04/24 09:45:00 Time Out 08/04/24 10:10:00 08/04/24 10:10:00 08/04/24 10:10:00 Procedure CYSTOSCOPY LOCAL(.) CYSTOSCOPY LOCAL(.) CYSTOSCOPY LOCAL(.) Comments Last Modified By: Tanja RN, CNOR, Tanja RN, DEEPALIOR, Tanja SUNITA POSADA Ruthann 08/04/24 Yanet 08/04/24 Yanet 08/04/24 10:03:18 [...] LARKIN MD, Verified (If Participants Tanja POSADA, DEEPALIOR, Applicable) Halley Holt CST, Hortencia oMta Time Out Complete 08/04/24 09:50:00 Allergies Reviewed? [...] SUNITA Agrawal RN, Ruthann 08/04/24 10:03 Normal [facility] Operative Reporton Operative Report Operative Report Patient: [...] TURBT potentially at a tertiary center.. Normal [facility] Comment on above: Result Comment: Elec tronically Signed By: CHAYA LEMUS, Jason Bal\Date and Time Signed: 08/04/24 10:12 EDT HbA1c HPLC (Bld) [Mass fract ion]on 08-03-2024 HbA1c (Bld) [Mass fraction] Hemoglobin A1c/Hemoglobin.total in Blood by HPLC [facility] HbA1c (Bld) [Mass fraction] 6.5 % [facility] No Panel Informationon 08-03 Bedside Glucose 147 [facility] Urine Cytology ([facility])on 0 08-03-2024 Method of Extraction Voided Normal [facility] Comment on above: Performed By: #### 1 [id number] #### [facility] Laboratory [address] Number of Jars 1 Invalid Interpretation Code [facility] Comment on above: Performed By: #### 1 [id number] #### [facility] [address] [place] [address] UC Specimen Urine Normal [facility] Comment on above: Performed By: #### 1 [id number] #### [facility] [address] [place] [address] Type of Service Technical Only Normal [facility] Comment on above: Performed By: #### 1 [id number] #### [facility] [address] [place] [address] Urology Office/Clinic Noteon 08-03-2024 Urology Office/Clinic Note [...] factor for urothelial ca. 5. Anticoagulated (Z79.01: custodial (current) use of anticoagulants) On Plavix. Hx of CABG x5 1995 at [facility], [facility]. Elevated risk for periop complications. Follow-up With When Contact Information CHAYA LEMUS, Jason Sanchez, [facility] [address], [place] [address]- [phone] Additional Instructions: sched cysto Patient Education Cystoscopy I, Tiffany Patten, personally scribed for Dr. Larkin on 08/03/2024 14:23:23. . Documentation recorded by the scribe, Tiffany Patten, accurately reflects the services(s) I performed and decisions made by me. Authenticated by Dr. Larkin on 08/03/2024 14:25:00. 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 Normal [facility] Comment on above: Result Comment: Elec tronically Signed By: CHAYA LEMUS, Jason Sanchez\.br\Date and Time Signed: 08/03/24 14:25 EDT\.br\Electronically Co-Signed By: Tiffany Patten.br\Date and Time Co-Signed: 08/03/24 14:24 EDT Basophils Auto (Bld) [#/Vol] on 07-15-2024 Basophils (Bld) [#/Vol] Automated basophil count 0.0-0.1 [facility] Basophils (Bld) [#/Vol] 0.1 10 3/uL 0.0-0.1 [facility] Basophils/100 WBC Auto (Bld) on 07-15-2024 Basophils/100 WBC (Bld) Automated basophil % 0.2-2.0 [facility] Basophils/100 WBC (Bld) 0.9 % 0.2-2.0 [facility] Eosinophils/100 WBC Auto (Bl d)on 07-15-2024 Eosinophils/100 WBC (Bld) Automated eosinophil % 0.9-7.0 [facility] Eosinophils/100 WBC (Bld) 3.1 % 0.9-7.0 [facility] Erythrocyte distribution wid th Auto (RBC) [Ratio]on 07-15-2024 Erythrocyte distribution width (RBC) [Ratio] Erythrocyte distribution width [Ratio] by Automated count 11.0-15.0 [facility] Erythrocyte distribution width (RBC) [Ratio] 15.0 % 11.0-15.0 [facility] Estimated glomerular filtrat ion rate (GFR) non- Americanon 07-15-2024 GFR/1.73 sq M.predicted among non-blacks MDRD (S/P/Bld) [Vol rate/Area] Estimated glomerular filtration rate (GFR) non- Low >=60 mL/min/1.7 3m 2 [facility] GFR/1.73 sq M.predicted among non-blacks MDRD (S/P/Bld) [Vol rate/Area] 39 mL/min/{1.73_m2} Low >=60 mL/min/1.7 3m 2 [facility] Globulin Calc (S) [Mass/Vol] on 07-15-2024 Globulin (S) [Mass/Vol] Serum globulin measurement by calculation (mass/volume) [facility] Globulin (S) [Mass/Vol] 3.7 g/dL [facility] Hematocrit Auto (Bld) [Volum e fraction]on 07-15-2024 Hematocrit (Bld) [Volume fraction] Hematocrit [Volume Fraction] of Blood by Automated count 42.0-54.0 [facility] Hematocrit (Bld) [Volume fraction] 42.8 % 42.0-54.0 [facility] Hemoglobin [Mass/volume] in Bloodon 07-15-2024 Hemoglobin (Bld) [Mass/Vol] Hemoglobin [Mass/volume] in Blood 14.0-18.0 [facility] Hemoglobin (Bld) [Mass/Vol] 14.5 g/dL 14.0-18.0 [facility] Laboratory - Chemistry and C hemistry - challengeon 07-15-2024 Albumin [Mass/Vol] 3.8 g/dL 3.4-5.0 [facility] ALP [Catalytic activity/Vol] 128 U/L High 46-116 [facility] ALT [Catalytic activity/Vol] 30 U/L 16-63 [facility] AST [Catalytic activity/Vol] 22 U/L 15-37 [facility] Bilirubin [Mass/Vol] 0.6 mg/dL 0.2-1.0 [facility] Calcium [Mass/Vol] 8.9 mg/dL 8.5-10.1 [facility] Chloride [Moles/Vol] 104 mmol/L 98-107 [facility] CO2 [Moles/Vol] 28.1 mmol/L 21.0-32.0 [facility] Creatinine [Mass/Vol] 1.74 mg/dL High 0.70-1.30 [facility] GFR/1.73 sq M.predicted MDRD (S/P/Bld) [Vol rate/Area] 47 mL/min/{1.73_m2} Low >=60 mL/min/1.7 3m 2 [facility] Glucose [Mass/Vol] 142 mg/dL High 74-106 [facility] Potassium [Moles/Vol] 4.1 mmol/L 3.5-5.1 [facility] Protein [Mass/Vol] 7.5 g/dL 6.4-8.2 [facility] Sodium [Moles/Vol] 140 mmol/L 136-145 [facility] Urea nitrogen [Mass/Vol] 19.0 mg/dL High 7.0-18.0 [facility] Urea nitrogen/Creatinine [Mass ratio] 10.9 mg/mg [facility] Bilirubin Ql (U) COLOR INTERFERENCE Abnormal NEGATIVE [facility] Ketones Ql (U) COLOR INTERFERENCE mg/dL Abnormal NEGATIV E [facility] Specific gravity (U) [Rel density] 1.020 1.005-1.02 5 [facility] Laboratory - Hematology and Cell countson 07-15-2024 Immature granulocytes/100 WBC (Bld) 0.6 % High 0.0-0.5 [facility] Laboratory - Specimen inform ationon 07-15-2024 Appearance (U) CLOUDY Abnormal CLEAR [facility] Color (U) DK. RED YELLOW [facility] Laboratory - Urinalysison Leukocyte esterase Test strip Ql (U) COLOR INTERFERENCE Abnormal NEGATIVE [facility] Mucus Ql (Urine sed) NONE SEEN NONE SEEN [facility] Nitrite Ql (U) COLOR INTERFERENCE Abnormal NEGATIVE [facility] Protein Ql (U) COLOR INTERFERENCE mg/dL Abnormal NEG/TRA CE [facility] Leukocytes [#/volume] correc soraya for nucleated erythrocytes in Blood by Automated counon 07-15-2024 WBC corrected for nucl RBC Auto (Bld) [#/Vol] Leukocytes [#/volume] corrected for nucleated erythrocytes in Blood by Automated coun .0-11.0 [facility] WBC corrected for nucl RBC Auto (Bld) [#/Vol] 8.1 10 3/uL 4.0-11.0 [facility] Lymphocytes Auto (Bld) [#/Vo l]on 07-15-2024 Lymphocytes (Bld) [#/Vol] Lymphocytes [#/volume] in Blood by Automated count 1.2-3.8 [facility] Lymphocytes (Bld) [#/Vol] 1.7 10 3/uL 1.2-3.8 [facility] Lymphocytes/100 WBC Auto (Bl d)on 07-15-2024 Lymphocytes/100 WBC (Bld) Lymphocytes/100 leukocytes in Blood by Automated count 20.5-60.0 [facility] Lymphocytes/100 WBC (Bld) 21.1 % 20.5-60.0 [facility] MCH Auto (RBC) [Entitic mass ]on 07-15-2024 MCH (RBC) [Entitic mass] MCH [Entitic mass] by Automated count 25.9-34.0 [facility] MCH (RBC) [Entitic mass] 30.7 pg 25.9-34.0 [facility] MCHC Auto (RBC) [Mass/Vol]on 07-15-2024 MCHC (RBC) [Mass/Vol] MCHC [Mass/volume] by Automated count 29.9-35.2 [facility] MCHC (RBC) [Mass/Vol] 33.9 g/dL 29.9-35.2 [facility] MCV Auto (RBC) [Entitic vol] on 07-15-2024 MCV (RBC) [Entitic vol] MCV [Entitic volume] by Automated count 80.0-94.0 [facility] MCV (RBC) [Entitic vol] 90.5 fL 80.0-94.0 [facility] Monocytes Auto (Bld) [#/Vol] on 07-15-2024 Monocytes (Bld) [#/Vol] Automated blood monocyte count 0.3-0.8 [facility] Monocytes (Bld) [#/Vol] 0.8 10 3/uL 0.3-0.8 [facility] Monocytes/100 WBC Auto (Bld) on 07-15-2024 Monocytes/100 WBC (Bld) Automated monocyte % 1.7-12.0 [facility] Monocytes/100 WBC (Bld) 9.5 % 1.7-12.0 [facility] Neutrophils Auto (Bld) [#/Vo l]on 07-15-2024 Neutrophils (Bld) [#/Vol] Neutrophils [#/volume] in Blood by Automated count 1.4-6.5 [facility] Neutrophils (Bld) [#/Vol] 5.3 10 3/uL 1.4-6.5 [facility] Neutrophils/100 WBC Auto (Bl d)on 07-15-2024 Neutrophils/100 WBC (Bld) Automated neutrophil % 43.0-75.0 [facility] Neutrophils/100 WBC (Bld) 64.8 % 43.0-75.0 [facility] No Panel Informationon 07-15 Eosinophils # (Auto) 0.3 10 3/uL 0.0-0.7 [facility] Immature Granulocyte # (Auto) 0.05 10 3/uL High 0.00-0.03 [facility] Urine Bacteria TRACE #/HPF Abnormal NONE SEEN [facility] Urine Culture Reflexed NO [facility] Urine Glucose (UA) COLOR INTERFERENCE mg/dL Abnormal NEG ATIVE [facility] Urine Occult Blood COLOR INTERFERENCE Abnormal NEGATIVE [facility] Urine Other Casts NONE SEEN #/LPF NONE SEEN Fi [facility] Urine Other Crystals None Seen #/HPF None Seen [facility] Urine pH COLOR INTERFERENCE Abnormal 5.0-9.0 [facility] Urine RBC 75-100 #/HPF Abnormal 0-2 [facility] Urine Squamous Epithelial Cells RARE #/LPF NONE/RARE [facility] Urine Urobilinogen COLOR INTERFERENCE EU/dL Abnormal 0.2 -1.0 [facility] Urine WBC NONE SEEN #/HPF NONE SEEN [facility] Platelet mean volume Auto (B ld) [Entitic vol]on 07-15-2024 Platelet mean volume (Bld) [Entitic vol] Platelet mean volume [Entitic volume] in Blood by Automated count 9.5-13.5 [facility] Platelet mean volume (Bld) [Entitic vol] 9.6 fL 9.5-13.5 [facility] Platelets Auto (Bld) [#/Vol] on 07-15-2024 Platelets (Bld) [#/Vol] Platelets [#/volume] in Blood by Automated count 150-450 [facility] Platelets (Bld) [#/Vol] 203 10 3/uL 150-450 [facility] RBC Auto (Bld) [#/Vol]on RBC (Bld) [#/Vol] Erythrocytes [#/volu me] in Blood by Automated count 4.70-6.10 [facility] RBC (Bld) [#/Vol] 4.73 10 6/uL 4.70-6.10 [facility] Serum or plasma albumin/glob ulin mass ratioon 07-15-2024 Albumin/Globulin [Mass ratio] Serum or plasma albumin/globulin mass ratio [facility] Albumin/Globulin [Mass ratio] 1.0 {ratio} [facility] Serum or plasma anion gap de terminationon 07-15-2024 Anion gap [Moles/Vol] Serum or plasma an ion gap determination [facility] Anion gap [Moles/Vol] 12.0 mmol/L [facility] Erythrocyte distribution wid th Auto (RBC) [Ratio]on 07-07-2024 Erythrocyte distribution width (RBC) [Ratio] Erythrocyte distribution width [Ratio] by Automated count High 11.0-15.0 [facility] Estimated glomerular filtrat ion rate (GFR) non- Americanon 07-07-2024 GFR/1.73 sq M.predicted among non-blacks MDRD (S/P/Bld) [Vol rate/Area] Estimated glomerular filtration rate (GFR) non- Low >=60 mL/min/1.7 3m 2 [facility] Hematocrit Auto (Bld) [Volum e fraction]on 07-07-2024 Hematocrit (Bld) [Volume fraction] Hematocrit [Volume Fraction] of Blood by Automated count 42.0-54.0 [facility] Hemoglobin [Mass/volume] in Bloodon 07-07-2024 Hemoglobin (Bld) [Mass/Vol] Hemoglobin [Mass/volume] in Blood 14.0-18.0 [facility] Laboratory - Chemistry and C hemistry - challengeon 07-07-2024 Albumin [Mass/Vol] 3.9 g/dL 3.4-5.0 [facility] Calcium [Mass/Vol] 9.3 mg/dL 8.5-10.1 [facility] Chloride [Moles/Vol] 105 mmol/L 98-107 [facility] CO2 [Moles/Vol] 28.7 mmol/L 21.0-32.0 [facility] Creatinine [Mass/Vol] 1.87 mg/dL High 0.70-1.30 [facility] GFR/1.73 sq M.predicted MDRD (S/P/Bld) [Vol rate/Area] 43 mL/min/{1.73_m2} Low >=60 mL/min/1.7 3m 2 [facility] Glucose [Mass/Vol] 196 mg/dL High 74-106 [facility] Magnesium [Mass/Vol] 1.9 mg/dL 1.8-2.4 [facility] Potassium [Moles/Vol] 5.5 mmol/L High 3.5-5.1 [facility] Sodium [Moles/Vol] 139 mmol/L 136-145 [facility] Urate [Mass/Vol] 3.5 mg/dL 3.5-7.2 [facility] Urea nitrogen [Mass/Vol] 19.0 mg/dL High 7.0-18.0 [facility] Urea nitrogen/Creatinine [Mass ratio] 10.2 mg/mg [facility] Laboratory - Urinalysison Protein (U) [Mass/Vol] 124.0 mg/dL High <=11.9 [facility] Leukocytes [#/volume] correc soraya for nucleated erythrocytes in Blood by Automated counon 07-07-2024 WBC corrected for nucl RBC Auto (Bld) [#/Vol] Leukocytes [#/volume] corrected for nucleated erythrocytes in Blood by Automated coun 4.0-11.0 [facility] MCH Auto (RBC) [Entitic mass ]on 07-07-2024 MCH (RBC) [Entitic mass] MCH [Entitic mass] by Automated count 25.9-34.0 [facility] MCHC Auto (RBC) [Mass/Vol]on 07-07-2024 MCHC (RBC) [Mass/Vol] MCHC [Mass/volume] by Automated count 29.9-35.2 [facility] MCV Auto (RBC) [Entitic vol] on 07-07-2024 MCV (RBC) [Entitic vol] MCV [Entitic volume] by Automated count 80.0-94.0 [facility] No Panel Informationon 07-07 25-Hydroxy Vitamin D Total 41.5 ng/mL [facility] Comment on above: <20 ng/mL Vit D defi cient20-<30 ng/mL Vit D nwwyaivkvmqk70-190 ng/mL Vit D sufficient>100 ng/mL Potential Toxicity Parathyroid Hormone (Intact) 62 pg/mL 15-65 [facility] Comment on above: Performed at: [address] [id number] Director: Kwaku Park PhD, Phone: [phone] Phosphorus Level 3.7 mg/dL 2.6-4.7 [facility] Urine Random Creatinine 69.77 mg/dL 20.00-300. 00 [facility] Platelet mean volume Auto (B ld) [Entitic vol]on 07-07-2024 Platelet mean volume (Bld) [Entitic vol] Platelet mean volume [Entitic volume] in Blood by Automated count 9.5-13.5 [facility] Platelets Auto (Bld) [#/Vol] on 07-07-2024 Platelets (Bld) [#/Vol] Platelets [#/volume] in Blood by Automated count 150-450 [facility] RBC Auto (Bld) [#/Vol]on RBC (Bld) [#/Vol] Erythrocytes [#/volu me] in Blood by Automated count 4.70-6.10 [facility] Serum or plasma anion gap de terminationon 07-07-2024 Anion gap [Moles/Vol] Serum or plasma an ion gap determination [facility] Urine Cultureon 07-07-2024 Bacteria identified Cx Nom (U) <9,000 colonies/ml mixed bacterial skin contaminants 2 Days PERFORMED BY: [place] [address] PATHOLOGIST [employer] DORCAS FARRELL M.D. Normal [facility] Comment on above: Performed By: #### C UU #### [address] Urine protein/creatinine rat ioon 07-07-2024 Protein/Creatinine (U) [Ratio] Urine protein/creatinine ratio [facility] Laboratory - Microbiology an d Antimicrobial susceptibilityon 06-10-2024 SARS-CoV-2 (COVID-19) RNA RAMO+probe Ql (Unsp spec) Positive Abnormal NEGATIVE [facility] Comment on above: This test has [...] 06-10 Bedside Influenza Type A Antigen Negative [facility] Comment on above: Negative for Flu A p rotein antigen. Infection due to Flu Acannot be ruled out. Flu A antigen in the sample may bebelow the detection limit of the test. Bedside Influenza Type B Antigen Negative [facility] Comment on above: Negative for Flu B p rotein antigen. Infection due to Flu Bcannot be ruled out. Flu B antigen in the sample may bebelow the detection limit of the test. Cholesterol in LDL Calc [Mas s/Vol]on 05-05-2024 Cholesterol in LDL [Mass/Vol] Cholesterol in LDL [Mass/volume] in Serum or Plasma by calculation [facility] Comment on above: <100 mg/dl [id number] 0-129 mg/dl NEAR OR ABOVE [id number] mg/dl BORDERLINE [id number] mg/dl HIGH>190 mg/dl VERY HIGH Cholesterol in VLDL Calc [Ma ss/Vol]on 05-05-2024 Cholesterol in VLDL [Mass/Vol] Cholesterol in VLDL [Mass/volume] in Serum or Plasma by calculation [facility] Estimated glomerular filtrat ion rate (GFR) non- Americanon 05-05-2024 GFR/1.73 sq M.predicted among non-blacks MDRD (S/P/Bld) [Vol rate/Area] Estimated glomerular filtration rate (GFR) non- Low >=60 mL/min/1.7 3m 2 [facility] Globulin Calc (S) [Mass/Vol] on 05-05-2024 Globulin (S) [Mass/Vol] Serum globulin measurement by calculation (mass/volume) [facility] Laboratory - Chemistry and C hemistry - challengeon 05-05-2024 Albumin [Mass/Vol] 3.7 g/dL 3.4-5.0 [facility] ALP [Catalytic activity/Vol] 162 U/L High 46-116 [facility] ALT [Catalytic activity/Vol] 17 U/L 16-63 [facility] AST [Catalytic activity/Vol] 20 U/L 15-37 [facility] Bilirubin [Mass/Vol] 0.5 mg/dL 0.2-1.0 [facility] Calcium [Mass/Vol] 9.2 mg/dL 8.5-10.1 [facility] Chloride [Moles/Vol] 104 mmol/L 98-107 [facility] Cholesterol [Mass/Vol] 117 mg/dL <=200 [facility] Cholesterol in HDL [Mass/Vol] 39 mg/dL Low 40-60 [facility] Comment on above: > or =60 mg/dl - LOW CARDIOVASCULAR RISK<40 mg/dl - HIGH CARDIOVASCULAR RISK CO2 [Moles/Vol] 28.5 mmol/L 21.0-32.0 [facility] Creatinine [Mass/Vol] 2.15 mg/dL High 0.70-1.30 [facility] GFR/1.73 sq M.predicted MDRD (S/P/Bld) [Vol rate/Area] 37 mL/min/{1.73_m2} Low >=60 mL/min/1.7 3m 2 [facility] Glucose [Mass/Vol] 220 mg/dL High 74-106 [facility] Potassium [Moles/Vol] 4.6 mmol/L 3.5-5.1 [facility] Protein [Mass/Vol] 8.0 g/dL 6.4-8.2 [facility] Sodium [Moles/Vol] 141 mmol/L 136-145 [facility] Triglyceride [Mass/Vol] 171 mg/dL High <=150 [facility] Urea nitrogen [Mass/Vol] 27.0 mg/dL High 7.0-18.0 [facility] Urea nitrogen/Creatinine [Mass ratio] 12.6 mg/mg [facility] Microalbumin [Mass/volume] i n Urineon 05-05-2024 Albumin DL <= 20 mg/L (U) [Mass/Vol] Microalbumin [Mass/volume] in Urine <=30.0 [facility] No Panel Informationon 05-05 Urine Random Creatinine 61.15 mg/dL 20.00-300. 00 [facility] Serum or plasma albumin/glob ulin mass ratioon 05-05-2024 Albumin/Globulin [Mass ratio] Serum or plasma albumin/globulin mass ratio [facility] Serum or plasma anion gap de terminationon 05-05-2024 Anion gap [Moles/Vol] Serum or plasma an ion gap determination [facility] Serum or plasma total choles terol/high density lipoprotein (HDL) cholesterol mass yulia 05-05-2024 Cholesterol.total/Cho lesterol in HDL [Mass ratio] Serum or plasma total cholesterol/high density lipoprotein (HDL) cholesterol mass rat [facility] Comment on above: 3.3 - 4.4 LOW RISK4. 4 - 7.1 AVERAGE RISK7.1 - 11.0 MODERATE RISK>11.0 HIGH RISK Urine microalbumin/creatinin e mass ratioon 05-05-2024 Albumin/Creatinine DL <= 20 mg/L (U) [Mass ratio] Urine microalbumin/creatinine mass ratio High 0.0-29.9 [facility] Comment on above: NO MICROALBUMINURIA 0-29 MG/GCLINICAL MICROALBUMINURIA 30-300 MG/GMACROALBUMINURIA >300 MG/G HbA1c HPLC (Bld) [Mass fract ion]on 04-30-2024 HbA1c (Bld) [Mass fraction] Hemoglobin A1c/Hemoglobin.total in Blood by HPLC [facility] No Panel Informationon 04-30 Bedside Glucose 158 [facility] Office Visiton 03-10-2024 Follow-up visit [id number] Lani Lizama 1950 M Date Provider Department Center 03/10/2024 KEVIN DEMPSEY MARCELINO [facility] Family History Problem Relation Age of Onset Heart attack Mother Other Father Other Brother Heart attack Maternal Grandmother Heart attack Maternal Grandfather Family Status - Relation Status Age at Mother Father Brother Maternal Grandmother Maternal Grandfather Level of Service:11863 SD OFFICE/OUTPATIENT NEW LOW MDM 30 MINUTES Normal [facility] 30on 02-14-2024 30 The patient is Moder ately Stable - Low risk of patient condition declining or worsening The patient's goals for the shift include get better The clinical goals for the shift include VSS Normal [facility] 30 The patient is Moder ately [...] and behaviors that affect risk of falls [place] fall precautions as indicated by assessment Educate [...] or improved Outcome: Progressing Flowsheets (Taken 02/14/2024 005) Care Plan - Patient's Chronic Conditions and [...] and prevent overall improvement and discharge Normal [facility] BASIC METABOLIC PANELon 01-30 Anion gap [Moles/Vol] 9 mmol/L Normal 7-20 [facility] Comment on above: Performed By: #### L [id number] ####[facility] (AKER)[address] [place] [address] Calcium [Mass/Vol] 8.4 mg/dL Low 8.6-10.3 [facility] Comment on above: Performed By: #### L [id number] ####[facility] (BEAKER)[address] [place] [address] Chloride [Moles/Vol] 109 mmol/L High 98-107 [facility] Comment on above: Performed By: #### L [id number] ####[facility] (BEAKER)[address] [place] [address] CO2 [Moles/Vol] 25 mmol/L Normal 21-31 [facility] Comment on above: Performed By: #### L [id number] ####[facility] ([facility] [place] [address] Creatinine [Mass/Vol] 1.65 mg/dL High 0.70-1.30 [facility] Comment on above: Performed By: #### L [id number] ####[facility] (BEAKER)[address] [place] [address] GLOMERULAR FILTRATION RATE ML/MIN/1.73 SQ M.PREDICTED 43.8 mL/min/1.73m*2 Low >60.0 [facility] Comment on above: Result Comment: [facility]???s estimated glomerular filtration rate (eGFR) will [...] of individuals. Performed By: #### L [id number] ####[facility] (BEAKER)[address] [place] [address] Glucose [Mass/Vol] 118 mg/dL High 70-100 [facility] Comment on above: Performed By: #### L [id number] ####[facility] (BEAKER)[address] [place] [address] Potassium [Moles/Vol] 4.3 mmol/L Normal 3.5-5.1 [facility] Comment on above: Performed By: #### L [id number] ####[facility] (BEAKER)[address] [place] [address] Sodium [Moles/Vol] 139 mmol/L Normal 136-145 [facility] Comment on above: Performed By: #### L [id number] ####[facility] (BEAKER)[address] [place] [address] Urea nitrogen [Mass/Vol] 19 mg/dL Normal 7-25 [facility] Comment on above: Performed By: #### L [id number] ####[facility] (BEAKER)[address] [place] [address] UREA NITROGEN/CREATININE (MASS RATIO) IN SER/PLAS 11.5 Normal [facility] Comment on above: Performed By: #### L [id number] ####[facility] (BEAKER)[address] [place] [address] CBCon 02-14-2024 Erythrocyte distribution width (RBC) [Ratio] 13.8 % Normal 11.5-15.0 [facility] Comment on above: Performed By: #### L [id number] ####[facility] ([facility] [place] [address] ERYTHROCYTE MEAN CORPUSCULAR HEMOGLOBIN CONCENTRATION (G/DL) BY AUTOMATED 32.9 g/dL Normal 32.0-35.0 [facility] Comment on above: Performed By: #### L [id number] ####[facility] ([facility] [place] [address] Hematocrit (Bld) [Volume fraction] 38.0 % Low 39.0-55.0 [facility] Comment on above: Performed By: #### L [id number] ####[facility] ([facility])[address] [place] [address] Hemoglobin (Bld) [Mass/Vol] 12.5 g/dL Low 13.0-17.0 [facility] Comment on above: Performed By: #### L [id number] ####[facility] ([facility] [place] [address] MCH (RBC) [Entitic mass] 30.1 pg Normal 27.0-33.0 [facility] Comment on above: Performed By: #### L [id number] ####[facility] ([facility] [place] [address] MCV (RBC) [Entitic vol] 91.6 fL Normal 82.0-98.0 [facility] Comment on above: Performed By: #### L [id number] ####[facility] ([facility] [place] [address] PLATELETS (10*3/UL) IN BLOOD AUTOMATED COUNT 176 10*3/uL Normal 150-400 [facility] Comment on above: Performed By: #### L [id number] ####[facility] ([facility] [place] [address] RBC (Bld) [#/Vol] 4.15 10*6/uL Low 4.20-5.70 [facility] Comment on above: Performed By: #### L [id number] ####[facility] ([facility])[address] [place] [address] WBC (Bld) [#/Vol] 6.88 10*3/uL Normal 4.00-10.60 [facility] Comment on above: Performed By: #### L [id number] ####[facility] ([facility])[address] [place] [address] NURSNOTEon 02-14-2024 NURSNOTE Discharge instructio n given , patient verbalized understanding, no follow up questions asked Normal [facility] POCT GLUCOSE METER UNSOLICIT ED RESULTSon 02-14-2024 Glucose [Mass/Vol] 231 mg/dL High 70-105 [facility] Comment on above: Order Comment: Waive d Testing in the ED is performed under the ED CLIA certificate #[id number]. Result Comment: [email or web address] Performed By: #### L [id number] #### [facility] ([facility]) [address] [place] [address] Glucose [Mass/Vol] 128 mg/dL High 70-105 [facility] Comment on above: Order Comment: Waive d Testing in the ED is performed under the ED CLIA certificate #[id number]. Result Comment: [email or web address] Performed By: #### L [id number] ####[facility] ([facility])[address] [place] [address] TROPONIN Ion 02-14-2024 Troponin I.cardiac [Mass/Vol] 1.08 ng/mL Critically high 0.00-0.04 [facility] Comment on above: Result Comment: M-SD EVIOUS CRITICAL RESULT Previous result verified on 02/14/2024 0605 on specimen/case [id number] called with component Troponin I for procedure Troponin I with value 1.69 ng/mL. Performed By: #### L [id number] #### [facility] ([facility]) [address] [place] [address] Troponin I.cardiac [Mass/Vol] 1.69 ng/mL Critically high 0.00-0.04 [facility] Comment on above: Performed By: #### L [id number] ####[facility] ([facility] [place] [address] 30on 02-13-2024 30 The patient is Moder ately Stable - Low risk of patient condition declining or worsening The patient's goals for the shift include get better The clinical goals for the shift include VSS Normal [facility] 30 The patient is Moder ately [...] and behaviors that affect risk of falls [place] fall precautions as indicated by assessment Educate [...] and behaviors that affect risk of falls [place] fall precautions as indicated by assessment Educate [...] and prevent overall improvement and discharge Normal [facility] ANTI-XA (HEPARIN LEVEL)on HEPARIN UNFRACTIONATED (U/ML) IN PPP BY CHROMOGENIC METHOD 0.85 IU/mL High 0.3-0.7 [facility] Comment on above: Order Comment: Check anti-Xa level every 6 hours while on heparin infusion, or per protocol. Result Comment: Rhona roxaban and Apixaban will interfere with the anti Xa assay used to monitor UFH and LMWH. Performed By: #### L [id number] #### [facility] ([facility]) [address] [place] [address] APTTon 02-13-2024 ACTIVATED PARTIAL THROMBOPLASTIN TIME IN PPP BY COAGULATION ASSAY 93.5 Seconds High 25.0-35.0 [facility] Comment on above: Order Comment: Basel ine aPTT before initiating heparin infusion. Result Comment: Clin ical significance of the APTT is questionable in the presence of heparin. Performed By: #### L [id number] #### [facility] ([facility]) [address] [place] [address] B-TYPE NATRIURETIC PEPTIDEon 02-13-2024 Natriuretic peptide B (Bld) [Mass/Vol] 693 pg/mL High 0-100 [facility] Comment on above: Performed By: #### L [id number] #### [facility] ([facility]) [address] [place] [address] BASIC METABOLIC PANELon 01-30 Anion gap [Moles/Vol] 10 mmol/L Normal 7-20 [facility] Comment on above: Performed By: #### L [id number] #### [facility] ([facility]) [address] [place] [address] Calcium [Mass/Vol] 8.9 mg/dL Normal 8.6-10.3 [facility] Comment on above: Performed By: #### L [id number] #### [facility] ([facility]) [address] [place] [address] Chloride [Moles/Vol] 107 mmol/L Normal 98-107 [facility] Comment on above: Performed By: #### L [id number] #### [facility] ([facility]) [address] [place] [address] CO2 [Moles/Vol] 25 mmol/L Normal 21-31 [facility] Comment on above: Performed By: #### L [id number] #### [facility] ([facility]) [address] [place] [address] Creatinine [Mass/Vol] 1.61 mg/dL High 0.70-1.30 [facility] Comment on above: Performed By: #### L [id number] #### [facility] ([facility]) [address] [place] [address] GLOMERULAR FILTRATION RATE ML/MIN/1.73 SQ M.PREDICTED 45.2 mL/min/1.73m*2 Low >60.0 [facility] Comment on above: Result Comment: [facility]???s estimated glomerular filtration rate (eGFR) will [...] individuals. Performed By: #### L [id number] #### [facility] ([facility]) [address] [place] [address] Glucose [Mass/Vol] 174 mg/dL High 70-100 [facility] Comment on above: Performed By: #### L [id number] #### [facility] ([facility]) [address] [place] [address] Potassium [Moles/Vol] 4.3 mmol/L Normal 3.5-5.1 [facility] Comment on above: Performed By: #### L [id number] #### [facility] ([facility]) [address] [place] [address] Sodium [Moles/Vol] 138 mmol/L Normal 136-145 [facility] Comment on above: Performed By: #### L [id number] #### [facility] [facility] [address] [facility] [place] [address] Urea nitrogen [Mass/Vol] 20 mg/dL Normal 7-25 [facility] Comment on above: Performed By: #### L [id number] #### [facility] [address] [place] [address] UREA NITROGEN/CREATININE (MASS RATIO) IN SER/PLAS 12.4 Normal [facility] Comment on above: Performed By: #### L [id number] #### [facility] ([facility]) [address] [place] [address] CBC WITH AUTO DIFFERENTIALon 02-13-2024 Basophils (Bld) [#/Vol] 0.05 10*3/uL Normal 0.00-0.20 [facility] Comment on above: Performed By: #### L [id number] ####[facility] ([facility])[address] [place] [address] Basophils/100 WBC (Bld) 0.7 % Normal 0.0-1.0 [facility] Comment on above: Performed By: #### L [id number] ####[facility] ([facility])[address] [place] [address] Eosinophils (Bld) [#/Vol] 0.13 10*3/uL Normal 0.00-0.50 [facility] Comment on above: Performed By: #### L [id number] ####[facility] ([facility])[address] [place] [address] Eosinophils/100 WBC (Bld) 1.8 % Normal 0.0-6.0 [facility] Comment on above: Performed By: #### L [id number] ####[facility] ([facility])[address] [place] [address] Erythrocyte distribution width (RBC) [Ratio] 13.4 % Normal 11.5-15.0 [facility] Comment on above: Performed By: #### L [id number] ####[facility] ([facility])[address] [place] [address] ERYTHROCYTE MEAN CORPUSCULAR HEMOGLOBIN CONCENTRATION (G/DL) BY AUTOMATED 34.1 g/dL Normal 32.0-35.0 [facility] Comment on above: Performed By: #### L [id number] ####[facility] (BEAKER)[address] [place] [address] Hematocrit (Bld) [Volume fraction] 40.2 % Normal 39.0-55.0 [facility] Comment on above: Performed By: #### L [id number] ####[facility] (BEAKER)[address] [place] [address] Hemoglobin (Bld) [Mass/Vol] 13.7 g/dL Normal 13.0-17.0 [facility] Comment on above: Performed By: #### L [id number] ####[facility] (BEAKER)[address] [place] [address] Immature granulocytes (Bld) [#/Vol] 0.03 10*3/uL Normal 0.00-0.20 [facility] Comment on above: Performed By: #### L [id number] ####[facility] (BEAKER)[address] [place] [address] Immature granulocytes/100 WBC (Bld) 0.4 % Normal 0.0-1.0 [facility] Comment on above: Performed By: #### L [id number] ####[facility] (BEAKER)[address] [place] [address] Lymphocytes (Bld) [#/Vol] 1.64 10*3/uL Normal 1.20-4.00 [facility] Comment on above: Performed By: #### L [id number] ####[facility] (BEAKER)[address] [place] [address] Lymphocytes/100 WBC (Bld) 22.3 % Normal 20.0-45.0 [facility] Comment on above: Performed By: #### L [id number] ####[facility] (BEAKER)[address] [place] [address] MCH (RBC) [Entitic mass] 30.2 pg Normal 27.0-33.0 [facility] Comment on above: Performed By: #### L [id number] ####[facility] (BEAKER)[address] [place] [address] MCV (RBC) [Entitic vol] 88.5 fL Normal 82.0-98.0 [facility] Comment on above: Performed By: #### L [id number] ####[facility] [place] [address] Monocytes (Bld) [#/Vol] 0.69 10*3/uL Normal 0.10-1.00 [facility] Comment on above: Performed By: #### L [id number] ####[facility] (BEAKER)[address] [place] [address] Monocytes/100 WBC (Bld) 9.4 % Normal 5.0-12.0 [facility] Comment on above: Performed By: #### L [id number] ####[facility] (BEAKER)[address] [place] [address] Neutrophils (Bld) [#/Vol] 4.80 10*3/uL Normal 1.60-7.60 [facility] Comment on above: Performed By: #### L [id number] ####[facility] (BEAKER)[address] [place] [address] Neutrophils/100 WBC (Bld) 65.4 % Normal 40.0-72.0 [facility] Comment on above: Performed By: #### L [id number] ####[facility] (BEAKER)[address] [place] [address] NRBC (PER 100 WBCS) BY AUTOMATED COUNT 0.0 % Normal 0 [facility] Comment on above: Performed By: #### L [id number] ####[facility] (BEAKER)[address] [place] [address] PLATELETS (10*3/UL) IN BLOOD AUTOMATED COUNT 202 10*3/uL Normal 150-400 [facility] Comment on above: Performed By: #### L [id number] ####[facility] (BEAKER)[address] [place] [address] RBC (Bld) [#/Vol] 4.54 10*6/uL Normal 4.20-5.70 [facility] Comment on above: Performed By: #### L [id number] ####[facility] (RICKAKER)[address] [place] [address] WBC (Bld) [#/Vol] 7.34 10*3/uL Normal 4.00-10.60 [facility] Comment on above: Performed By: #### L [id number] ####[facility] (RACHEL)[address] [place] [address] CONSULTon 02-13-2024 CONSULT ------ -- Attestation signed [...] presented as a transferred from [facility] with NSTEMI. Cardiology planning for cath later [...] (H) 08/31 (more content not included)... Normal [facility] CONSULT ------ -- Attestation signed by [...] presented as a transferred from [facility] with NSTEMI. The patient complained of retrosternal [...] and nitro drip. [facility]. Troponin this morning [...] (CMS/HCC), Hyperlipidemia, Hypertension, PVD (peripheral vascular disease) ([facility]), and Third degree heart block ([facility]). Surgical History He has a past surgical [...] PAIN pantoprazole (Pr (more content not included)... [facility] HPon 02-13-2024 HP H&P reviewed. [...] were addressed and answered. Jenny Fernandez MD Director Operations Broadcast - PGY6 [facility] Pt seen and examined. Agree with above Parul Pena MD [facility] MAGNESIUMon 02-13-2024 Magnesium [Mass/Vol] 2.0 mg/dL Normal 1.9-2.7 [facility] Comment on above: Performed By: #### L [id number] #### [facility] ([facility] [address] [place] [address] POCT GLUCOSE METER UNSOLICIT ED RESULTSon 02-13-2024 Glucose [Mass/Vol] 200 mg/dL High 70-105 [facility] Comment on above: Order Comment: Waive d Testing in the ED is performed under the ED CLIA certificate #[id number]. Result Comment: roberto gilberto Performed By: #### L [id number] #### [facility] ([facility]) [address] [place] [address] Glucose [Mass/Vol] 187 mg/dL High 70-105 [facility] Comment on above: Order Comment: Waive d Testing in the ED is performed under the ED CLIA certificate #[id number]. Result Comment: [email or web address] [email or web address] Performed By: #### L [id number] #### [facility] ([facility]) [address] [facility] [place] [address] Glucose [Mass/Vol] 141 mg/dL High 70-105 [facility] Comment on above: Order Comment: Waive d Testing in the ED is performed under the ED CLIA certificate #[id number]. Result Comment: [email or web address] Performed By: #### L [id number] #### [facility] ([facility]) [address] [place] [address] Glucose [Mass/Vol] 166 mg/dL High 70-105 [facility] Comment on above: Order Comment: Waive d Testing in the ED is performed under the ED CLIA certificate #[id number]. Result Comment: nita [email or web address] Performed By: #### L [id number] #### [facility] ([facility]) [address] [place] [address] PROTIME-INRon 02-13-2024 INR IN PPP BY COAGULATION ASSAY 1.17 High 0.90-1.10 [facility] Comment on above: Result Comment: ACCC [...] CHEST 1995;[id number]. Performed By: #### L [id number] ####[facility] ([facility])[address] [place] [address] PROTHROMBIN TIME (PT) IN PPP BY COAGULATION ASSAY 14.9 Seconds High 12.3-14.8 [facility] Comment on above: Performed By: #### L [id number] ####[facility] ([facility])[address] [place] [address] TROPONIN Ion 02-13-2024 Troponin I.cardiac [Mass/Vol] 2.02 ng/mL Critically high 0.00-0.04 [facility] Comment on above: Result Comment: M-SD EVIOUS CRITICAL RESULT Previous result verified on 02/13/2024 0606 on specimen/case [id number] called with component Troponin I for procedure Troponin I with value 3.34 ng/mL. Performed By: #### L [id number] ####[facility] ([facility])[address] [place] [address] Troponin I.cardiac [Mass/Vol] 2.10 ng/mL Critically high 0.00-0.04 [facility] Comment on above: Result Comment: M-SD EVIOUS CRITICAL RESULT Previous result verified on 02/13/2024 0606 on specimen/case [id number] called with component Troponin I for procedure Troponin I with value 3.34 ng/mL. Performed By: #### L [id number] ####[facility] ([facility])[address] [place] [address] Troponin I.cardiac [Mass/Vol] 3.34 ng/mL Critically high 0.00-0.04 [facility] Comment on above: Result Comment: M-TR OPONIN INITIAL CRITICAL HIGH; RESPUN AND RETESTED Performed By: #### L [id number] #### [facility] (BEAKER) [address] [place] [address] Activated partial thrombopla stin time (aPTT) in platelet poor plasma by coagulation aon 02-12-2024 aPTT Coag (PPP) [Time] Activated partial thromboplastin time (aPTT) in platelet poor plasma by coagulation a 22.3-36.2 [facility] Basophils Auto (Bld) [#/Vol] on 02-12-2024 Basophils (Bld) [#/Vol] Automated basophil count 0.0-0.1 [facility] Basophils/100 WBC Auto (Bld) on 02-12-2024 Basophils/100 WBC (Bld) Automated basophil % 0.2-2.0 [facility] Eosinophils/100 WBC Auto (Bl d)on 02-12-2024 Eosinophils/100 WBC (Bld) Automated eosinophil % 0.9-7.0 [facility] Erythrocyte distribution wid th Auto (RBC) [Ratio]on 02-12-2024 Erythrocyte distribution width (RBC) [Ratio] Erythrocyte distribution width [Ratio] by Automated count 11.0-15.0 [facility] Estimated glomerular filtrat ion rate (GFR) non- Americanon 02-12-2024 GFR/1.73 sq M.predicted among non-blacks MDRD (S/P/Bld) [Vol rate/Area] Estimated glomerular filtration rate (GFR) non- Low >=60 mL/min/1.7 3m 2 [facility] Hematocrit Auto (Bld) [Volum e fraction]on 02-12-2024 Hematocrit (Bld) [Volume fraction] Hematocrit [Volume Fraction] of Blood by Automated count 42.0-54.0 [facility] Hemoglobin [Mass/volume] in Bloodon 02-12-2024 Hemoglobin (Bld) [Mass/Vol] Hemoglobin [Mass/volume] in Blood 14.0-18.0 [facility] INR in Platelet poor plasma by Coagulation assayon 02-12-2024 INR Coag (PPP) [Relative time] INR in Platelet poor plasma by Coagulation assay [facility] Comment on above: DESIRED INR:2.0-3.0 CONDITIONS NOT LISTED BELOW2.5-3.5 FOR PROSTHETIC HEART VALVE REPLACEMENT2.5-3.5 RECURRENT THROMBOSIS Laboratory - Chemistry and C hemistry - challengeon 02-12-2024 Calcium [Mass/Vol] 9.4 mg/dL 8.5-10.1 [facility] Chloride [Moles/Vol] 106 mmol/L 98-107 [facility] CO2 [Moles/Vol] 22.9 mmol/L 21.0-32.0 [facility] Creatinine [Mass/Vol] 1.97 mg/dL High 0.70-1.30 [facility] GFR/1.73 sq M.predicted MDRD (S/P/Bld) [Vol rate/Area] 41 mL/min/{1.73_m2} Low >=60 mL/min/1.7 3m 2 [facility] Glucose [Mass/Vol] 236 mg/dL High 74-106 [facility] Potassium [Moles/Vol] 3.9 mmol/L 3.5-5.1 [facility] Comment on above: SPECIMEN SLIGHTLY HE MOLYZED Sodium [Moles/Vol] 141 mmol/L 136-145 [facility] Urea nitrogen [Mass/Vol] 21.0 mg/dL High 7.0-18.0 [facility] Urea nitrogen/Creatinine [Mass ratio] 10.7 mg/mg [facility] Laboratory - Hematology and Cell countson 02-12-2024 Immature granulocytes/100 WBC (Bld) 0.5 % 0.0-0.5 [facility] Leukocytes [#/volume] correc soraya for nucleated erythrocytes in Blood by Automated counon 02-12-2024 WBC corrected for nucl RBC Auto (Bld) [#/Vol] Leukocytes [#/volume] corrected for nucleated erythrocytes in Blood by Automated coun 4.0-11.0 [facility] Lymphocytes Auto (Bld) [#/Vo l]on 02-12-2024 Lymphocytes (Bld) [#/Vol] Lymphocytes [#/volume] in Blood by Automated count 1.2-3.8 [facility] Lymphocytes/100 WBC Auto (Bl d)on 02-12-2024 Lymphocytes/100 WBC (Bld) Lymphocytes/100 leukocytes in Blood by Automated count 20.5-60.0 [facility] MCH Auto (RBC) [Entitic mass ]on 02-12-2024 MCH (RBC) [Entitic mass] MCH [Entitic mass] by Automated count 25.9-34.0 [facility] MCHC Auto (RBC) [Mass/Vol]on 02-12-2024 MCHC (RBC) [Mass/Vol] MCHC [Mass/volume] by Automated count 29.9-35.2 [facility] MCV Auto (RBC) [Entitic vol] on 02-12-2024 MCV (RBC) [Entitic vol] MCV [Entitic volume] by Automated count 80.0-94.0 [facility] Monocytes Auto (Bld) [#/Vol] on 02-12-2024 Monocytes (Bld) [#/Vol] Automated blood monocyte count 0.3-0.8 [facility] Monocytes/100 WBC Auto (Bld) on 02-12-2024 Monocytes/100 WBC (Bld) Automated monocyte % 1.7-12.0 [facility] Neutrophils Auto (Bld) [#/Vo l]on 02-12-2024 Neutrophils (Bld) [#/Vol] Neutrophils [#/volume] in Blood by Automated count 1.4-6.5 [facility] Neutrophils/100 WBC Auto (Bl d)on 02-12-2024 Neutrophils/100 WBC (Bld) Automated neutrophil % 43.0-75.0 [facility] No Panel Informationon 02-11 Troponin I High Sensitivity 85.0 pg/mL Critically high 4.0-76.1 [facility] Comment on above: RESULTS CALLED TO [...] Eosinophils # (Auto) 0.2 10 3/uL 0.0-0.7 [facility] Immature Granulocyte # (Auto) 0.04 10 3/uL High 0.00-0.03 [facility] Platelet mean volume Auto (B ld) [Entitic vol]on 02-12-2024 Platelet mean volume (Bld) [Entitic vol] Platelet mean volume [Entitic volume] in Blood by Automated count 9.5-13.5 [facility] Platelets Auto (Bld) [#/Vol] on 02-12-2024 Platelets (Bld) [#/Vol] Platelets [#/volume] in Blood by Automated count 150-450 [facility] Prothrombin time (PT)on 01-30 PT Coag (PPP) [Time] Prothrombin time (PT) 9.0- 11.6 [facility] RBC Auto (Bld) [#/Vol]on RBC (Bld) [#/Vol] Erythrocytes [#/volu me] in Blood by Automated count 4.70-6.10 [facility] Serum or plasma anion gap de terminationon 02-12-2024 Anion gap [Moles/Vol] Serum or plasma an ion gap determination [facility] Erythrocyte distribution wid th Auto (RBC) [Ratio]on 12-30-2023 Erythrocyte distribution width (RBC) [Ratio] 14.3 % 11.0-15.0 [facility] Estimated glomerular filtrat ion rate (GFR) non- Americanon 12-30-2023 GFR/1.73 sq M.predicted among non-blacks MDRD (S/P/Bld) [Vol rate/Area] 31 mL/min/{1.73_m2} Low >=60 [facility] Hematocrit Auto (Bld) [Volum e fraction]on 12-30-2023 Hematocrit (Bld) [Volume fraction] 45.2 % 42.0-54.0 [facility] Hemoglobin [Mass/volume] in Bloodon 12-30-2023 Hemoglobin (Bld) [Mass/Vol] 14.8 g/dL 14.0-18.0 [facility] Laboratory - Chemistry and C hemistry - challengeon 12-30-2023 Albumin [Mass/Vol] 3.8 g/dL 3.4-5.0 [facility] Calcium [Mass/Vol] 9.9 mg/dL 8.5-10.1 [facility] Chloride [Moles/Vol] 103 mmol/L 98-107 [facility] CO2 [Moles/Vol] 27.9 mmol/L 21.0-32.0 [facility] Creatinine [Mass/Vol] 2.10 mg/dL High 0.70-1.30 [facility] GFR/1.73 sq M.predicted MDRD (S/P/Bld) [Vol rate/Area] 38 mL/min/{1.73_m2} Low >=60 [facility] Glucose [Mass/Vol] 207 mg/dL High 74-106 [facility] Magnesium [Mass/Vol] 2.1 mg/dL 1.8-2.4 [facility] Potassium [Moles/Vol] 4.7 mmol/L 3.5-5.1 [facility] Sodium [Moles/Vol] 137 mmol/L 136-145 [facility] Urate [Mass/Vol] 4.1 mg/dL 3.5-7.2 [facility] Urea nitrogen [Mass/Vol] 29.0 mg/dL High 7.0-18.0 [facility] Urea nitrogen/Creatinine [Mass ratio] 13.8 mg/mg [facility] Laboratory - Urinalysison Protein (U) [Mass/Vol] 26.9 mg/dL High <=11.9 [facility] Leukocytes [#/volume] correc soraya for nucleated erythrocytes in Blood by Automated counon 12-30-2023 WBC corrected for nucl RBC Auto (Bld) [#/Vol] 8.7 10 3/uL 4.0-11.0 [facility] MCH Auto (RBC) [Entitic mass ]on 12-30-2023 MCH (RBC) [Entitic mass] 30.0 pg 25.9-34.0 [facility] MCHC Auto (RBC) [Mass/Vol]on 12-30-2023 MCHC (RBC) [Mass/Vol] 32.7 g/dL 29.9-35.2 [facility] MCV Auto (RBC) [Entitic vol] on 12-30-2023 MCV (RBC) [Entitic vol] 91.7 fL 80.0-94.0 [facility] No Panel Informationon 12-29 25-Hydroxy Vitamin D Total 47.5 ng/mL [facility] Comment on above: <20 ng/mL Vit D defi cient20-<30 ng/mL Vit D [id number] ng/mL Vit D sufficient>100 ng/mL Potential Toxicity Parathyroid Hormone (Intact) 27 pg/mL 15-65 [facility] Comment on above: Performed at: - [facility] [employer] [address] [id number] Director: Kwaku Park PhD, Phone: [phone] Phosphorus Level 3.7 mg/dL 2.6-4.7 [facility] Urine Random Creatinine 85.11 mg/dL 20.00-300. 00 [facility] Platelet mean volume Auto (B ld) [Entitic vol]on 12-30-2023 Platelet mean volume (Bld) [Entitic vol] 9.3 fL Low 9.5-13.5 [facility] Platelets Auto (Bld) [#/Vol] on 12-30-2023 Platelets (Bld) [#/Vol] 193 10 3/uL 150-450 [facility] RBC Auto (Bld) [#/Vol]on RBC (Bld) [#/Vol] 4.93 10 6/uL 4.70-6.10 [facility] Serum or plasma anion gap de terminationon 12-30-2023 Anion gap [Moles/Vol] 10.8 mmol/L Fi [facility] Urine protein/creatinine rat ioon 12-30-2023 Protein/Creatinine (U) [Ratio] 0.32 [facility] HbA1c HPLC (Bld) [Mass fract ion]on 10-17-2023 HbA1c (Bld) [Mass fraction] 7.5 % [facility] No Panel Informationon 10-16 Bedside Glucose 108 [facility] Activated partial thrombopla stin time (aPTT) in platelet poor plasma by coagulation aon 09-26-2023 aPTT Coag (PPP) [Time] 28.8 s 22.3-36.2 [facility] Basophils Auto (Bld) [#/Vol] on 09-26-2023 Basophils (Bld) [#/Vol] 0.1 10 3/uL 0.0-0.1 [facility] Basophils/100 WBC Auto (Bld) on 09-26-2023 Basophils/100 WBC (Bld) 0.6 % 0.2-2.0 [facility] Eosinophils/100 WBC Auto (Bl d)on 09-26-2023 Eosinophils/100 WBC (Bld) 2.4 % 0.9-7.0 [facility] Erythrocyte distribution wid th Auto (RBC) [Ratio]on 09-26-2023 Erythrocyte distribution width (RBC) [Ratio] 14.3 % 11.0-15.0 [facility] Estimated glomerular filtrat ion rate (GFR) non- Americanon 09-26-2023 GFR/1.73 sq M.predicted among non-blacks MDRD (S/P/Bld) [Vol rate/Area] 39 mL/min/{1.73_m2} Low >=60 [facility] Globulin Calc (S) [Mass/Vol] on 09-26-2023 Globulin (S) [Mass/Vol] 4.0 g/dL [facility] Hematocrit Auto (Bld) [Volum e fraction]on 09-26-2023 Hematocrit (Bld) [Volume fraction] 49.4 % 42.0-54.0 [facility] Hemoglobin [Mass/volume] in Bloodon 09-26-2023 Hemoglobin (Bld) [Mass/Vol] 16.0 g/dL 14.0-18.0 [facility] INR in Platelet poor plasma by Coagulation assayon 09-26-2023 INR Coag (PPP) [Relative time] 0.99 {INR} [facility] Comment on above: DESIRED INR:2.0-3.0 CONDITIONS NOT LISTED BELOW2.5-3.5 FOR PROSTHETIC HEART VALVE REPLACEMENT2.5-3.5 RECURRENT THROMBOSIS Laboratory - Chemistry and C hemistry - challengeon 09-26-2023 Albumin [Mass/Vol] 4.1 g/dL 3.4-5.0 [facility] ALP [Catalytic activity/Vol] 146 U/L High 46-116 [facility] ALT [Catalytic activity/Vol] 32 U/L 16-63 [facility] AST [Catalytic activity/Vol] 26 U/L 15-37 [facility] Bilirubin [Mass/Vol] 0.7 mg/dL 0.2-1.0 [facility] Calcium [Mass/Vol] 9.2 mg/dL 8.5-10.1 [facility] Chloride [Moles/Vol] 104 mmol/L 98-107 [facility] CO2 [Moles/Vol] 24.8 mmol/L 21.0-32.0 [facility] Creatinine [Mass/Vol] 1.72 mg/dL High 0.70-1.30 [facility] GFR/1.73 sq M.predicted MDRD (S/P/Bld) [Vol rate/Area] 48 mL/min/{1.73_m2} Low >=60 [facility] Glucose [Mass/Vol] 206 mg/dL High 74-106 [facility] Potassium [Moles/Vol] 4.2 mmol/L 3.5-5.1 [facility] Protein [Mass/Vol] 8.1 g/dL 6.4-8.2 [facility] Sodium [Moles/Vol] 141 mmol/L 136-145 [facility] Urea nitrogen [Mass/Vol] 26.0 mg/dL High 7.0-18.0 [facility] Urea nitrogen/Creatinine [Mass ratio] 15.1 mg/mg [facility] Laboratory - Hematology and Cell countson 09-26-2023 Immature granulocytes/100 WBC (Bld) 0.3 % 0.0-0.5 [facility] Leukocytes [#/volume] correc soraya for nucleated erythrocytes in Blood by Automated counon 09-26-2023 WBC corrected for nucl RBC Auto (Bld) [#/Vol] 10.5 10 3/uL 4.0-11.0 [facility] Lymphocytes Auto (Bld) [#/Vo l]on 09-26-2023 Lymphocytes (Bld) [#/Vol] 2.0 10 3/uL 1.2-3.8 [facility] Lymphocytes/100 WBC Auto (Bl d)on 09-26-2023 Lymphocytes/100 WBC (Bld) 18.7 % Low 20.5-60.0 [facility] MCH Auto (RBC) [Entitic mass ]on 09-26-2023 MCH (RBC) [Entitic mass] 28.4 pg 25.9-34.0 [facility] MCHC Auto (RBC) [Mass/Vol]on 09-26-2023 MCHC (RBC) [Mass/Vol] 32.4 g/dL 29.9-35.2 [facility] MCV Auto (RBC) [Entitic vol] on 09-26-2023 MCV (RBC) [Entitic vol] 87.7 fL 80.0-94.0 [facility] Monocytes Auto (Bld) [#/Vol] on 09-26-2023 Monocytes (Bld) [#/Vol] 0.8 10 3/uL 0.3-0.8 [facility] Monocytes/100 WBC Auto (Bld) on 09-26-2023 Monocytes/100 WBC (Bld) 7.3 % 1.7-12.0 [facility] Neutrophils Auto (Bld) [#/Vo l]on 09-26-2023 Neutrophils (Bld) [#/Vol] 7.4 10 3/uL High 1.4-6.5 [facility] Neutrophils/100 WBC Auto (Bl d)on 09-26-2023 Neutrophils/100 WBC (Bld) 70.7 % 43.0-75.0 [facility] No Panel Informationon 09-25 Troponin I High Sensitivity 8614.2 pg/mL High 4.0-76.1 [facility] Comment on above: RESULTS CALLED TO [...] Eosinophils # (Auto) 0.3 10 3/uL 0.0-0.7 [facility] Immature Granulocyte # (Auto) 0.03 10 3/uL 0.00-0.03 [facility] Platelet mean volume Auto (B ld) [Entitic vol]on 09-26-2023 Platelet mean volume (Bld) [Entitic vol] 10.0 fL 9.5-13.5 [facility] Platelets Auto (Bld) [#/Vol] on 09-26-2023 Platelets (Bld) [#/Vol] 194 10 3/uL 150-450 [facility] Prothrombin time (PT)on 08-31 PT Coag (PPP) [Time] 10.5 s 9.0-11.6 [facility] RBC Auto (Bld) [#/Vol]on RBC (Bld) [#/Vol] 5.63 10 6/uL 4.70-6.10 [facility] Serum or plasma albumin/glob ulin mass ratioon 09-26-2023 Albumin/Globulin [Mass ratio] 1.0 {ratio} [facility] Serum or plasma anion gap de terminationon 09-26-2023 Anion gap [Moles/Vol] 16.4 mmol/L [facility] No Panel Informationon 08-26 Prostate Specific Antigen Screen 1.37 ng/mL <=4.00 [facility] Erythrocyte distribution wid th Auto (RBC) [Ratio]on 06-24-2023 Erythrocyte distribution width (RBC) [Ratio] 14.6 % 11.0-15.0 [facility] Estimated glomerular filtrat ion rate (GFR) non- Americanon 06-24-2023 GFR/1.73 sq M.predicted among non-blacks MDRD (S/P/Bld) [Vol rate/Area] 38 mL/min/{1.73_m2} >=60 [facility] Hematocrit Auto (Bld) [Volum e fraction]on 06-24-2023 Hematocrit (Bld) [Volume fraction] 46.2 % 42.0-54.0 [facility] Hemoglobin [Mass/volume] in Bloodon 06-24-2023 Hemoglobin (Bld) [Mass/Vol] 14.5 g/dL 14.0-18.0 [facility] Laboratory - Chemistry and C hemistry - challengeon 06-24-2023 Albumin [Mass/Vol] 4.0 g/dL 3.4-5.0 [facility] Calcium [Mass/Vol] 9.2 mg/dL 8.5-10.1 [facility] Chloride [Moles/Vol] 106 mmol/L 98-107 [facility] CO2 [Moles/Vol] 25.4 mmol/L 21.0-32.0 [facility] Creatinine [Mass/Vol] 1.76 mg/dL 0.70-1.30 [facility] GFR/1.73 sq M.predicted MDRD (S/P/Bld) [Vol rate/Area] 47 mL/min/{1.73_m2} >=60 [facility] Glucose [Mass/Vol] 212 mg/dL 74-106 [facility] Magnesium [Mass/Vol] 2.1 mg/dL 1.8-2.4 [facility] Potassium [Moles/Vol] 4.5 mmol/L 3.5-5.1 [facility] Sodium [Moles/Vol] 142 mmol/L 136-145 [facility] Urate [Mass/Vol] 4.3 mg/dL 3.5-7.2 [facility] Urea nitrogen [Mass/Vol] 30.0 mg/dL 7.0-18.0 [facility] Urea nitrogen/Creatinine [Mass ratio] 17.0 mg/mg [facility] Laboratory - Urinalysison Protein (U) [Mass/Vol] 11.5 mg/dL <=11.9 [facility] Leukocytes [#/volume] correc soraya for nucleated erythrocytes in Blood by Automated counon 06-24-2023 WBC corrected for nucl RBC Auto (Bld) [#/Vol] 9.6 10 3/uL 4.0-11.0 [facility] MCH Auto (RBC) [Entitic mass ]on 06-24-2023 MCH (RBC) [Entitic mass] 28.5 pg 25.9-34.0 [facility] MCHC Auto (RBC) [Mass/Vol]on 06-24-2023 MCHC (RBC) [Mass/Vol] 31.4 g/dL 29.9-35.2 [facility] MCV Auto (RBC) [Entitic vol] on 06-24-2023 MCV (RBC) [Entitic vol] 90.8 fL 80.0-94.0 [facility] No Panel Informationon 06-23 25-Hydroxy Vitamin D Total 42.5 ng/mL [facility] Comment on above: <20 ng/mL Vit D defi cient20-<30 ng/mL Vit D [id number] ng/mL Vit D sufficient>100 ng/mL Potential Toxicity Parathyroid Hormone (Intact) 48 pg/mL 15-65 [facility] Comment on above: Performed at: [facility] [employer] [address] [id number] Director: Kwaku Park PhD, Phone: [phone] Phosphorus Level 3.6 mg/dL 2.6-4.7 [facility] Urine Random Creatinine 60.60 mg/dL 20.00-300. 00 [facility] Platelet mean volume Auto (B ld) [Entitic vol]on 06-24-2023 Platelet mean volume (Bld) [Entitic vol] 10.2 fL 9.5-13.5 [facility] Platelets Auto (Bld) [#/Vol] on 06-24-2023 Platelets (Bld) [#/Vol] 178 10 3/uL 150-450 [facility] RBC Auto (Bld) [#/Vol]on RBC (Bld) [#/Vol] 5.09 10 6/uL 4.70-6.10 [facility] Serum or plasma anion gap de terminationon 06-24-2023 Anion gap [Moles/Vol] 15.1 mmol/L [facility] Urine protein/creatinine rat ioon 06-24-2023 Protein/Creatinine (U) [Ratio] 0.19 [facility] HbA1c HPLC (Bld) [Mass fract ion]on 06-18-2023 HbA1c (Bld) [Mass fraction] 6.1 % [facility] No Panel Informationon 06-17 Bedside Glucose 150 [facility] Cholesterol in LDL Calc [Mas s/Vol]on 06-13-2023 Cholesterol in LDL [Mass/Vol] 29.0 mg/dL [facility] Comment on above: <100 mg/dl [id number] 0-129 mg/dl NEAR OR ABOVE [id number] mg/dl BORDERLINE [id number] mg/dl HIGH>190 mg/dl VERY HIGH Cholesterol in VLDL Calc [Ma ss/Vol]on 06-13-2023 Cholesterol in VLDL [Mass/Vol] 24.8 mg/dL [facility] Laboratory - Chemistry and C hemistry - challengeon 06-13-2023 Cholesterol [Mass/Vol] 87 mg/dL <=200 [facility] Cholesterol in HDL [Mass/Vol] 34 mg/dL 40-60 [facility] Comment on above: > or =60 mg/dl - LOW CARDIOVASCULAR RISK<40 mg/dl - HIGH CARDIOVASCULAR RISK Triglyceride [Mass/Vol] 124 mg/dL <=150 [facility] Serum or plasma total choles terol/high density lipoprotein (HDL) cholesterol mass yulia 06-13-2023 Cholesterol.total/Cho lesterol in HDL [Mass ratio] 2.6 {ratio} [facility] Comment on above: 3.3 - 4.4 LOW RISK4. 4 - 7.1 AVERAGE RISK7.1 - 11.0 MODERATE RISK>11.0 HIGH RISK A1C HEMOGLOBINon 03-12-2023 HbA1c (Bld) [Mass fraction] 7.1 % [employer] Other Glucose - FINGER STICKon Glucose [Mass/Vol] 151 mg/dL [facility] Other HbA1c (Bld) [Mass fraction]o n 03-12-2023 A1C HEMOGLOBIN [employer] Other CT CHEST WO CONon 08-09-2022 CT [...] Date: 2022-08-09 14:00 Normal [facility] A1C HEMOGLOBINon 06-26-2022 HbA1c (Bld) [Mass fraction] 7.4 % [employer] Other Glucose - FINGER STICKon Glucose [Mass/Vol] 267 mg/dL [employer] Other HbA1c (Bld) [Mass fraction]o n 06-26-2022 A1C HEMOGLOBIN [employer] Other PTH INTACTon 06-26-2022 PTH, Intact 37 pg/mL Normal 15-65 [facility] Comment on above: Performed By: #### C MP, CMADM #### [facility] [address] [address] [address] Mirza Sadler FERRITINon 06-25-2022 Ferritin [Mass/Vol] 269.0 ng/mL Normal 26.0-388.0 [facility] Comment on above: Performed By: #### B SQUEAK [employer]AK REPAIRER #### [facility] [address] [place] [address] Dr. Mirza Sadler HEMOGRAM AND PLATELon 2022 Hematocrit (Bld) [Volume fraction] 44.7 % Normal 42.0-54.0 [facility] Comment on above: Performed By: #### P T, PTT #### [facility] [address] [place] [address] Dr. Mirza Sadler Hemoglobin (Bld) [Mass/Vol] 15.1 g/dL Normal 14.0-18.0 [facility] Comment on above: Performed By: #### P T, PTT #### [facility] [address] [place] [address] Dr. Mirza Sadler MCH (RBC) [Entitic mass] 30.0 pg Normal 25.9-34.0 [facility] Comment on above: Performed By: #### P T, PTT #### [facility] [address] [place] [address] Dr. Mirza Sadler MCHC (RBC) [Mass/Vol] 33.8 g/dL Normal 29.9-35.2 [facility] Comment on above: Performed By: #### P T, PTT #### [facility] [address] [place] [address] Dr. Mirza Sadler MCV (RBC) [Entitic vol] 88.9 fL Normal 80.0-94.0 [facility] Comment on above: Performed By: #### P T, PTT #### [facility] [address] [place] [address] Dr. Mirza Sadler PLT 199 103/ul Normal 150-450 [facility] Comment on above: Performed By: #### P T, PTT #### [facility] [address] [place] [address] Dr. Mirza Sadler RBC 5.03 106/ul Normal 4.70-6.10 [facility] Comment on above: Performed By: #### P T, PTT #### [facility] [address] [place] [address] Dr. Mirza Sadler WBC 8.7 103/ul Normal 4.0-11.0 [facility] Comment on above: Performed By: #### P T, PTT #### [facility] [address] [place] [address] Dr. Mirza Sadler IRON AND TIBCon 06-25-2022 % SATURATION 28.6 % Normal [facility] Comment on above: Performed By: #### B SQUE[employer] REPAIRER #### [facility] [address] [place] [address] Dr. Mirza Sadler Iron [Mass/Vol] 82.0 ug/dL Normal 65.0-175.0 [facility] Comment on above: Performed By: #### B SQUEAK [employer] REPAIRER #### [facility] [address] [place] [address] Dr. Mirza Sadler TIBC DIRECT 287.0 ug/dL Normal 250.0-450. 0 [facility] Comment on above: Performed By: #### B SQUE[employer] REPAIRER #### [facility] [address] [place] [address] Dr. Mirza Sadler MAGNESIUMon 06-25-2022 Magnesium [Mass/Vol] 2.0 mg/dL Normal 1.8-2.4 [facility] Comment on above: Performed By: #### B SQUEAK [employer] REPAIRER #### [facility] [address] [place] [address] Dr. Mirza Sadler RENAL FUNCTION PANELon 06-25 Albumin [Mass/Vol] 4.2 g/dL Normal 3.4-5.0 [facility] Comment on above: Performed By: #### B SQUEAK [employer] REPAIRER #### [facility] [address] [place] [address] Dr. Mirza Sadler Calcium [Mass/Vol] 9.3 mg/dL Normal 8.5-10.1 [facility] Comment on above: Performed By: #### B SQUEAK [employer] REPAIRER #### [facility] [address] [place] [address] Dr. Mirza Sadler Chloride [Moles/Vol] 108 mmol/L Critically high 98-107 [facility] Comment on above: Performed By: #### B SQUEAK [employer] REPAIRER #### [facility] [address] [place] [address] Dr. Mirza Sadler CO2 [Moles/Vol] 29.5 mmol/L Normal 21.0-32.0 [facility] Comment on above: Performed By: #### B SQUEAK [employer] REPAIRER #### [facility] [address] [address] [address] Mirza Sadler Creatinine [Mass/Vol] 1.87 mg/dL Critically high 0.70-1.30 [facility] Comment on above: Performed By: #### B SQUEAK [employer] REPAIRER #### [facility] [address] [address] [address] Mirza Sadler EGFR-AF SAUDI ARABIAN 43 mL/min/1.73m2 Critically low >=60 [facility] Comment on above: Performed By: #### B SQUEAK [employer] REPAIRER #### [facility] [address] [place] [address] Dr. Mirza Sadler EGFR-NON AF SAUDI ARABIAN 36 mL/min/1.73m2 Critically low >=60 [facility] Comment on above: Performed By: #### B SQUEAK [employer] REPAIRER #### [facility] [address] [place] [address] Dr. Mirza Sadler Glucose [Mass/Vol] 181 mg/dL Critically high 74-106 [facility] Comment on above: Performed By: #### B SQUEAK [employer] REPAIRER #### [facility] [address] [place] [address] Dr. Mirza Sadler Phosphate [Mass/Vol] 4.8 mg/dL Critically high 2.6-4.7 [facility] Comment on above: Performed By: #### B SQUEAK [employer] REPAIRER #### [facility] [address] [place] [address] Dr. Mirza Sadler Potassium [Moles/Vol] 4.8 mmol/L Normal 3.5-5.1 [facility] Comment on above: Performed By: #### B SQUEAK [employer] REPAIRER #### [facility] [address] [place] [address] Dr. Mirza Sadler Sodium [Moles/Vol] 146 mmol/L Critically high 136-145 [facility] Comment on above: Performed By: #### B SQUEAK [employer] REPAIRER #### [facility] [address] [place] [address] Dr. Mirza Sadler Urea nitrogen [Mass/Vol] 40.0 mg/dL Critically high 7.0-18.0 [facility] Comment on above: Performed By: #### B SQUEAK [employer] REPAIRER #### [facility] [address] [place] [address] Dr. Mirza Sadler UA RANDOM W/MICROSCOPICon BACTERIA NONE SEEN Normal NONE SEEN [facility] Comment on above: Performed By: #### H STROPN #### [facility] [address] [place] [address] Dr. Mirza Sadler Bilirubin Ql (U) Negative Normal NEGATIVE [facility] Comment on above: Performed By: #### H STROPN #### [facility] [address] [place] [address] Dr. Mirza Sadler CAST NONE SEEN Normal NONE SEEN [facility] Comment on above: Performed By: #### H STROPN #### [facility] [address] [place] [address] Dr. Mirza Sadler Clarity (U) CLEAR Normal CLEAR [facility] Comment on above: Performed By: #### H STROPN #### [facility] [address] [place] [address] Dr. Mirza Sadler Color (U) LT. YELLOW Normal YELLOW [facility] Comment on above: Performed By: #### H STROPN #### [facility] [address] [place] [address] Dr. Mirza Sadler Crystals LM Nom (Urine sed) NONE SEEN Normal NONE SEEN [facility] Comment on above: Performed By: #### H STROPN #### [facility] [address] [place] [address] Dr. Mirza Sadler Epithelial cells LM Ql (Urine sed) FEW Abnormal NONE SEEN /RARE [facility] Comment on above: Performed By: #### H STROPN #### [facility] [address] [place] [address] Dr. Mirza Sadler Glucose Ql (U) 500 mg/dl Abnormal NEGATIVE [facility] Comment on above: Performed By: #### H STROPN #### [facility] [address] [place] [address] Dr. Mirza Sadler Hemoglobin Ql (U) Negative Normal NEGATIVE [facility] Comment on above: Performed By: #### H STROPN #### [facility] [address] [place] [address] Dr. Mirza Sadler Ketones Ql (U) Negative Normal NEGATIVE [facility] Comment on above: Performed By: #### H STROPN #### [facility] [address] [place] [address] Dr. Mirza Sadler LEUKOCYTES Negative Normal NEGATIVE [facility] Comment on above: Performed By: #### H STROPN #### [facility] [address] [place] [address] Dr. Mirza Sadler MUCOUS NONE SEEN Normal NONE SEEN [facility] Comment on above: Performed By: #### H STROPN #### [facility] [address] [place] [address] Dr. Mirza Sadler Nitrite Ql (U) Negative Normal NEGATIVE [facility] Comment on above: Performed By: #### H STROPN #### [facility] [address] [place] [address] Dr. Mirza Sadler pH (U) 5.5 [pH] Normal 5-9 [facility] Comment on above: Performed By: #### H STROPN #### [facility] [address] [place] [address] Dr. Mirza Sadler RBC 0-2 Normal 0-2 [facility] Comment on above: Performed By: #### H STROPN #### [facility] [address] [place] [address] Dr. Mirza Sadler SPEC GRAVITY 1.015 Normal 1.005-<=1. 025 [facility] Comment on above: Performed By: #### H STROPN #### [facility] [address] [place] [address] Dr. Mirza Sadler UA PROTEIN Negative Normal NEGATIVE/ TRACE [facility] Comment on above: Performed By: #### H STROPN #### [facility] [address] [place] [address] Dr. Mirza Sadler Urobilinogen Qn (U) 0.2 {Luisito'U}/dL Normal 0.2 - 1. 0 [facility] Comment on above: Performed By: #### H STROPN #### [facility] [address] [place] [address] Dr. Mirza Sadler WBC NONE SEEN Normal NONE SEEN [facility] Comment on above: Performed By: #### H STROPN #### [facility] [address] [place] [address] Dr. Mirza Sadler URIC ACID SERUMon 06-25-2022 Urate [Mass/Vol] 6.1 mg/dL Normal 3.5-7.2 [facility] Comment on above: Performed By: #### B SQUEAK [employer] REPAIRER #### [facility] [address] [place] [address] Dr. Mirza Sadler URINE T PROTEIN CREAT RATIOo n 06-25-2022 Protein (U) [Mass/Vol] 9.7 mg/dL Normal <=12.0 [facility] Comment on above: Performed By: #### C TEGAN MARIN #### [facility] [address] [place] [address] Dr. Mirza Sadler UR PROT CREAT RAT 0.14 Normal [facility] Comment on above: Performed By: #### C TEGAN MARIN #### [facility] [address] [place] [address] Dr. Mirza Sadler URINE CREAT 71.45 mg/dL Normal 20.00-300. 00 [facility] Comment on above: Performed By: #### C TEGAN MARIN #### [facility] [address] [place] [address] Dr. Mirza Sadler VITAMIN D 25 OHon 06-25-2022 VIT D 25-OH 44.7 ng/mL Normal [facility] Comment on above: Performed By: #### E RUR #### [facility] [address] [place] [address] Dr. Mirza Sadler VIT D RANGES SEE BELOW Normal [facility] Comment on above: Result Comment: <20 ng/mL Vit D deficient 20 - <30 ng/mL Vit D insufficient 30 - 100 ng/mL Vit D sufficient >100 ng/mL Potential Toxicity Performed By: #### E RUR #### [facility] [address] [address] [address] Mirza Sadler LIPID PROFILEon 06-18-2022 CHOL-HDL RATIO NORM SEE BELOW Normal [facility] Comment on above: Result Comment: 3.3 - 4.4 LOW RISK 4.4 - 7.1 AVERAGE RISK 7.1 - 11.0 MODERATE RISK >11.0 HIGH RISK Performed By: #### H STROPN #### [facility] [address] [address] [address] Mirza Sadler Cholesterol [Mass/Vol] 136 mg/dL Normal <=200 [facility] Comment on above: Performed By: #### H STROPN #### [facility] [address] [address] [address] Mirza Sadler Cholesterol in HDL [Mass/Vol] 38 mg/dL Critically low 40-60 [facility] Comment on above: Performed By: #### H STROPN #### [facility] [address] [address] [address] Mirza Sadler Cholesterol in LDL [Mass/Vol] 69.6 mg/dL Normal [facility] Comment on above: Performed By: #### H STROPN #### [facility] [address] [address] [address] Mirza Sadler Cholesterol.total/Cho lesterol in HDL [Mass ratio] 3.6 {ratio} Normal [facility] Comment on above: Performed By: #### H STROPN #### [facility] [address] [address] [address] Mirza Sadler HDL NORMAL > or = 60 mg/dl - LO W CARDIOVASCULAR RISK <40 mg/dl - HIGH CARDIOVASCULAR RISK Normal [facility] Comment on above: Performed By: #### H STROPN #### [facility] [address] [address] [address] Mirza Sadler LDL CALC NORMAL SEE BELOW Normal [facility] Comment on above: Result Comment: <100 mg/dl OPTIMAL 100 - 129 mg/dl NEAR OR ABOVE OPTIMAL 130 - 159 mg/dl BORDERLINE HIGH 160 - 189 mg/dl HIGH >190 mg/dl VERY HIGH Performed By: #### H STROPN #### [facility] [address] [place], [place] [address] Dr. Mirza Sadler Triglyceride [Mass/Vol] 142 mg/dL Normal <=150 [facility] Comment on above: Performed By: #### H STROPN #### [facility] [address] [place], [place] [address] Dr. Mirza Sadler VLDL CALC 28.4 mg/dL Normal [facility] Comment on above: Performed By: #### H STROPN #### [facility] [address] [place], [place] [address] CHEST WO CONon [...] by: HIGINIO FLANAGAN Date: 2022-06-05 16:58 Normal [facility] CT CHEST WO CON [employer] Other PROF CHEM 8 (BAS METB)on Anion gap [Moles/Vol] 10.2 mmol/L Normal Th [facility] Comment on above: Performed By: #### B SQUEAK [employer] REPAIRER #### [facility] [address] [address] [address] Mirza Sadler Calcium [Mass/Vol] 8.9 mg/dL Normal 8.5-10.1 [facility] Comment on above: Performed By: #### B SQUEAK [employer]AK REPAIRER #### [facility] [address] [address] [address] Mirza Sadler Chloride [Moles/Vol] 101 mmol/L Normal 98-107 [facility] Comment on above: Performed By: #### B SQUEAK [employer]ATT[employer] LEAK REPAIRER #### [facility] [address] [address] [address] Mirza Sadler CO2 [Moles/Vol] 31.2 mmol/L Normal 21.0-32.0 [facility] Comment on above: Performed By: #### B SQUEAK [employer]ATT[employer] LEAK REPAIRER #### [facility] [address] [address] [address] Mirza Sadler Creatinine [Mass/Vol] 1.91 mg/dL Critically high 0.70-1.30 [facility] Comment on above: Performed By: #### B SQUEAK [employer]AK REPAIRER #### [facility] [address] [address] [address] Mirza Sadler EGFR-AF SAUDI ARABIAN 42 mL/min/1.73m2 Critically low >=60 [facility] Comment on above: Performed By: #### B SQUEAK [employer]AK REPAIRER #### [facility] [address] [address] [address] Mirza Sadler EGFR-NON AF SAUDI ARABIAN 35 mL/min/1.73m2 Critically low >=60 [facility] Comment on above: Performed By: #### B SQUEAK RATT[employer] LEAK REPAIRER #### [facility] [address] [address] [address] Mirza Sadler Glucose [Mass/Vol] 242 mg/dL Critically high 74-106 [facility] Comment on above: Performed By: #### B SQUEAK [employer] REPAIRER #### [facility] [address] [address] [address] Mirza Sadler Potassium [Moles/Vol] 4.4 mmol/L Normal 3.5-5.1 [facility] Comment on above: Performed By: #### B SQUEAK [employer] REPAIRER #### [facility] [address] [address] [address] Mirza Sadler Sodium [Moles/Vol] 138 mmol/L Normal 136-145 [facility] Comment on above: Performed By: #### B SQUE[employer] REPAIRER #### [facility] [address] [place] [address] Dr. Mirza Sadler Urea nitrogen [Mass/Vol] 33.0 mg/dL Critically high 7.0-18.0 [facility] Comment on above: Performed By: #### B SQUE[employer] REPAIRER #### [facility] [address] [place] [address] Dr. Mirza Sadler Urea nitrogen/Creatinine [Mass ratio] 17.3 mg/mg Normal [facility] Comment on above: Performed By: #### B SQUEAK [employer] REPAIRER #### [facility] [address] [place] [address] Dr. Mirza Sadler PROF CHEM 8 (BAS METB)on Anion gap [Moles/Vol] 10.7 mmol/L Normal [facility] Comment on above: Performed By: #### P T, PTT #### [facility] [address] [place] [address] Dr. Mirza Sadler Calcium [Mass/Vol] 8.9 mg/dL Normal 8.5-10.1 [facility] Comment on above: Performed By: #### P T, PTT #### [facility] [address] [place] [address] Dr. Mirza Sadler Chloride [Moles/Vol] 104 mmol/L Normal 98-107 [facility] Comment on above: Performed By: #### P T, PTT #### [facility] [address] [place] [address] Dr. Mirza Sadler CO2 [Moles/Vol] 29.4 mmol/L Normal 21.0-32.0 [facility] Comment on above: Performed By: #### P T, PTT #### [facility] [address] [place] [address] Dr. Mirza Sadler Creatinine [Mass/Vol] 1.75 mg/dL Critically high 0.70-1.30 [facility] Comment on above: Performed By: #### P T, PTT #### [facility] [address] [address] [address] Mirza Sadler EGFR-AF SAUDI ARABIAN 47 mL/min/1.73m2 Critically low >=60 [facility] Comment on above: Performed By: #### P T, PTT #### [facility] [address] [address] [address] Mirza Sadler EGFR-NON AF SAUDI ARABIAN 39 mL/min/1.73m2 Critically low >=60 [facility] Comment on above: Performed By: #### P T, PTT #### [facility] [address] [place] [address] Dr. Mirza Sadler Glucose [Mass/Vol] 191 mg/dL Critically high 74-106 T [facility] Comment on above: Performed By: #### P T, PTT #### [facility] [address] [address] [address] Mirza Sadler Potassium [Moles/Vol] 4.1 mmol/L Normal 3.5-5.1 [facility] Comment on above: Performed By: #### P T, PTT #### [facility] [address] [place] [address] Dr. Mirza Sadler Sodium [Moles/Vol] 140 mmol/L Normal 136-145 [facility] Comment on above: Performed By: #### P T, PTT #### [facility] [address] [address] [address] Mirza Sadler Urea nitrogen [Mass/Vol] 31.0 mg/dL Critically high 7.0-18.0 [facility] Comment on above: Performed By: #### P T, PTT #### [facility] [address] [place] [address] Dr. Mirza Sadler Urea nitrogen/Creatinine [Mass ratio] 17.7 mg/mg Normal [facility] Comment on above: Performed By: #### P T, PTT #### [facility] [address] [place] [address] Dr. Mirza Sadler XR CHEST 2 Von 12-22-2022 XR CHEST 2 V EXAMINATION: XR CHES [...] HIGINIO FLANAGAN Date: 2022-03-22 16:12 Normal [facility] A1C HEMOGLOBINon 03-20-2022 HbA1c (Bld) [Mass fraction] 6.7 % [employer] Other Glucose - FINGER STICKon Glucose [Mass/Vol] 193 mg/dL [employer] Other HbA1c (Bld) [Mass fraction]o n 03-20-2022 A1C HEMOGLOBIN [facility] [employer] Other BNPon 03-13-2022 Natriuretic peptide B (Bld) [Mass/Vol] 4825.0 pg/mL Critically high <=900.0 [facility] Comment on above: Performed By: #### E RUR #### [facility] [address] [place] [address] Dr. Mirza Sadler CBC AUTO DIFFon 03-13-2022 BASO # 0.0 103/ul Normal 0.0-0.1 [facility] Comment on above: Performed By: #### E RUR #### [facility] [address] [address] [address] Mirza Sadler Basophils/100 WBC (Bld) 0.6 % Normal 0.2-2.0 [facility] Comment on above: Performed By: #### E RUR #### [facility] [address] [place] [address] Dr. Mirza Sadler EO # 0.1 103/ul Normal 0.0-0.7 [facility] Comment on above: Performed By: #### E RUR #### [facility] [address] [place] [address] Dr. Mirza Sadler Eosinophils/100 WBC (Bld) 1.8 % Normal 0.9-7.0 [facility] Comment on above: Performed By: #### E RUR #### [facility] [address] [place] [address] Dr. Mirza Sadler Erythrocyte distribution width (RBC) [Ratio] 14.4 % Normal 11.0-15.0 [facility] Comment on above: Performed By: #### E RUR #### [facility] [address] [place] [address] Dr. Mirza Sadler Hematocrit (Bld) [Volume fraction] 36.1 % Critically low 42.0-54.0 [facility] Comment on above: Performed By: #### E RUR #### [facility] [address] [place] [address] Dr. Mirza Sadler Hemoglobin (Bld) [Mass/Vol] 11.9 g/dL Critically low 14.0-18.0 [facility] Comment on above: Performed By: #### E RUR #### [facility] [address] [place] [address] Dr. Mirza Sadler IG # 0.02 10e3/ul Normal 0.00-0.03 [facility] Comment on above: Performed By: #### E RUR #### [facility] [address] [place] [address] Dr. Mirza Sadler IG % 0.3 % Normal 0.0-0.5 [facility] Comment on above: Performed By: #### E RUR #### [facility] [address] [place] [address] Dr. Mirza Sadler LYMPH # 1.5 103/ul Normal 1.2-3.8 [facility] Comment on above: Performed By: #### E RUR #### [facility] [address] [place] [address] Dr. Mirza Sadler Lymphocytes/100 WBC (Bld) 22.6 % Normal 20.5-60.0 [facility] Comment on above: Performed By: #### E RUR #### [facility] [address] [place] [address] Dr. Mirza Sadler MANUAL DIFF REQ NO Normal [facility] Comment on above: Performed By: #### E RUR #### [facility] [address] [place] [address] Dr. Mirza Sadler MCH (RBC) [Entitic mass] 29.0 pg Normal 25.9-34.0 [facility] Comment on above: Performed By: #### E RUR #### [facility] [address] [place] [address] Dr. Mirza Sadler MCHC (RBC) [Mass/Vol] 33.0 g/dL Normal 29.9-35.2 [facility] Comment on above: Performed By: #### E RUR #### [facility] [address] [place] [address] Dr. Mirza Sadler MCV (RBC) [Entitic vol] 88.0 fL Normal 80.0-94.0 [facility] Comment on above: Performed By: #### E RUR #### [facility] [address] [place] [address] Dr. Mirza Sadler MONO # 0.7 103/ul Normal 0.3-0.8 [facility] Comment on above: Performed By: #### E RUR #### [facility] [address] [place] [address] Dr. Mirza Sadler Monocytes/100 WBC (Bld) 10.2 % Normal 1.7-12.0 [facility] Comment on above: Performed By: #### E RUR #### [facility] [address] [place] [address] Dr. Mirza Sadler NEUT # 4.3 103/ul Normal 1.4-6.5 [facility] Comment on above: Performed By: #### E RUR #### [facility] [address] [place] [address] Dr. Mirza Sadler Neutrophils/100 WBC (Bld) 64.5 % Normal 43.0-75.0 [facility] Comment on above: Performed By: #### E RUR #### [facility] [address] [place] [address] Dr. Mirza Sadler Platelet mean volume (Bld) [Entitic vol] 9.7 fL Normal 9.5-13.5 [facility] Comment on above: Performed By: #### E RUR #### [facility] [address] [place] [address] Dr. Mirza Sadler PLT 149 103/ul Critically low 150-450 [facility] Comment on above: Performed By: #### E RUR #### [facility] [address] [place] [address] Dr. Mirza Sadler RBC 4.10 106/ul Critically low 4.70-6.10 [facility] Comment on above: Performed By: #### E RUR #### [facility] [address] [place] [address] Dr. Mirza Sadler WBC 6.6 103/ul Normal 4.0-11.0 [facility] Comment on above: Performed By: #### E RUR #### [facility] [address] [place] [address] Dr. Mirza Sadler PROF CHEM 8 (BAS METB)on Anion gap [Moles/Vol] 14.6 mmol/L Normal [facility] Comment on above: Performed By: #### E RUR #### [facility] [address] [place] [address] Dr. Mirza Sadler Calcium [Mass/Vol] 8.5 mg/dL Normal 8.5-10.1 [facility] Comment on above: Performed By: #### E RUR #### [facility] [address] [place] [address] Dr. Mirza Sadler Chloride [Moles/Vol] 104 mmol/L Normal 98-107 [facility] Comment on above: Performed By: #### E RUR #### [facility] [address] [place] [address] Dr. Mirza Sadler CO2 [Moles/Vol] 22.7 mmol/L Normal 21.0-32.0 [facility] Comment on above: Performed By: #### E RUR #### [facility] [address] [address] [address] Mirza Sadler Creatinine [Mass/Vol] 1.78 mg/dL Critically high 0.70-1.30 [facility] Comment on above: Performed By: #### E RUR #### [facility] [address] [address] [address] Mirza Sadler EGFR-AF SAUDI ARABIAN 46 mL/min/1.73m2 Critically low >=60 [facility] Comment on above: Performed By: #### E RUR #### [facility] [address] [address] [address] Mirza Sadler EGFR-NON AF SAUDI ARABIAN 38 mL/min/1.73m2 Critically low >=60 [facility] Comment on above: Performed By: #### E RUR #### [facility] [address] [address] [address] Mirza Sadler Glucose [Mass/Vol] 121 mg/dL Critically high 74-106 T [facility] Comment on above: Performed By: #### E RUR #### [facility] [address] [address] [address] Mirza Sadler Potassium [Moles/Vol] 3.3 mmol/L Critically low 3.5-5.1 [facility] Comment on above: Performed By: #### E RUR #### [facility] [address] [address] [address] Mirza Sadler Sodium [Moles/Vol] 138 mmol/L Normal 136-145 [facility] Comment on above: Performed By: #### E RUR #### [facility] [address] [address] [address] Mirza Sadler Urea nitrogen [Mass/Vol] 30.0 mg/dL Critically high 7.0-18.0 [facility] Comment on above: Performed By: #### E RUR #### [facility] [address] [place] [address] Dr. Mirza Sadler Urea nitrogen/Creatinine [Mass ratio] 16.9 mg/mg Normal [facility] Comment on above: Performed By: #### E RUR #### [facility] [address] [place] [address] Dr. Mirza Sadler BNPon 03-12-2022 Natriuretic peptide B (Bld) [Mass/Vol] 7452.0 pg/mL Critically high <=900.0 [facility] Comment on above: Performed By: #### C MP, CMADM #### [facility] [address] [place] [address] Dr. Mirza Sadler CBC AUTO DIFFon 03-12-2022 BASO # 0.0 103/ul Normal 0.0-0.1 [facility] Comment on above: Performed By: #### P T, PTT #### [facility] [address] [place] [address] Dr. Mirza Sadler Basophils/100 WBC (Bld) 0.4 % Normal 0.2-2.0 [facility] Comment on above: Performed By: #### P T, PTT #### [facility] [address] [place] [address] Dr. Mirza Sadler EO # 0.0 103/ul Normal 0.0-0.7 [facility] Comment on above: Performed By: #### P T, PTT #### [facility] [address] [place] [address] Dr. Mirza Sadler Eosinophils/100 WBC (Bld) 0.2 % Critically low 0.9-7.0 [facility] Comment on above: Performed By: #### P T, PTT #### [facility] [address] [place] [address] Dr. Mirza Sadler Erythrocyte distribution width (RBC) [Ratio] 14.6 % Normal 11.0-15.0 [facility] Comment on above: Performed By: #### P T, PTT #### [facility] [address] [place] [address] Dr. Mirza Sadler Hematocrit (Bld) [Volume fraction] 37.8 % Critically low 42.0-54.0 [facility] Comment on above: Performed By: #### P T, PTT #### [facility] [address] [place] [address] Dr. iMrza Sadler Hemoglobin (Bld) [Mass/Vol] 12.2 g/dL Critically low 14.0-18.0 [facility] Comment on above: Performed By: #### P T, PTT #### [facility] [address] [place] [address] Dr. Mirza Sadler IG # 0.03 10e3/ul Normal 0.00-0.03 [facility] Comment on above: Performed By: #### P T, PTT #### [facility] [address] [place] [address] Dr. Mirza Sadler IG % 0.3 % Normal 0.0-0.5 [facility] Comment on above: Performed By: #### P T, PTT #### [facility] [address] [place] [address] Dr. Mirza Sadler LYMPH # 1.2 103/ul Normal 1.2-3.8 [facility] Comment on above: Performed By: #### P T, PTT #### [facility] [address] [place] [address] Dr. Mirza Sadler Lymphocytes/100 WBC (Bld) 11.5 % Critically low 20.5-60.0 [facility] Comment on above: Performed By: #### P T, PTT #### [facility] [address] [place] [address] Dr. Mirza Sadler MANUAL DIFF REQ NO Normal [facility] Comment on above: Performed By: #### P T, PTT #### [facility] [address] [place] [address] Dr. Mirza Sadler MCH (RBC) [Entitic mass] 29.0 pg Normal 25.9-34.0 [facility] Comment on above: Performed By: #### P T, PTT #### [facility] [address] [place] [address] Dr. Mirza Sadler MCHC (RBC) [Mass/Vol] 32.3 g/dL Normal 29.9-35.2 [facility] Comment on above: Performed By: #### P T, PTT #### [facility] [address] [place] [address] Dr. Mirza Sadler MCV (RBC) [Entitic vol] 89.8 fL Normal 80.0-94.0 [facility] Comment on above: Performed By: #### P T, PTT #### [facility] [address] [place] [address] Dr. Mirza Sadler MONO # 0.7 103/ul Normal 0.3-0.8 [facility] Comment on above: Performed By: #### P T, PTT #### [facility] [address] [place] [address] Dr. Mirza Sadler Monocytes/100 WBC (Bld) 6.8 % Normal 1.7-12.0 [facility] Comment on above: Performed By: #### P T, PTT #### [facility] [address] [place] [address] Dr. Mirza Sadler NEUT # 8.5 103/ul Critically high 1.4-6.5 [facility] Comment on above: Performed By: #### P T, PTT #### [facility] [address] [place] [address] Dr. Mirza Sadler Neutrophils/100 WBC (Bld) 80.8 % Critically high 43.0-75.0 [facility] Comment on above: Performed By: #### P T, PTT #### [facility] [address] [place] [address] Dr. Mirza Sadler Platelet mean volume (Bld) [Entitic vol] 9.8 fL Normal 9.5-13.5 [facility] Comment on above: Performed By: #### P T, PTT #### [facility] [address] [place] [address] Dr. Mirza Sadler PLT 165 103/ul Normal 150-450 [facility] Comment on above: Performed By: #### P T, PTT #### [facility] [address] [place] [address] Dr. Mirza Sadler RBC 4.21 106/ul Critically low 4.70-6.10 [facility] Comment on above: Performed By: #### P T, PTT #### [facility] [address] [place], [place] [address] Dr. Mirza Sadler WBC 10.5 103/ul Normal 4.0-11.0 [facility] Comment on above: Performed By: #### P T, PTT #### [facility] [address] [place], [place] [address] Dr. Mirza Sadler ECHOCARDIO M/2D COMPLETEon 1 05-13-2021 ECHOCARDIO M/2D COMPLETE Patient: LANI LIZAMA Exam Date: 03/12/2022 : 1950 Gender:M Ordering : DR OBDULIO ALVA . Admission #: [id number] Family : DR HARLEY CRESPO D.O. Order #: [id number] CLICK HERE TO VIEW EXAM ECHOCARDIOGRAM REPORT PROCEDURE: CARDIO PULMONARY ECHOCARDIO M/2D COMP INDICATIONS: Elevated TROP and BNPChest pain, recent [place], CHF, CBAG x 5, PTCA x 7 [...] 2.97 cm Aortic Valve AoV Area (Peak Chrissy): 1.16 cm2, 1.16 cm2 Peak Velocity(Antegrade Flow): 1.52 m/s Peak Gradient(Antegrade Flow): 9.23 mm[Hg] Tricuspid Valve Pulmonic Valve Peak Velocity: 1.17 m/s, 1.01 m/s Peak Gradient: 5.52 mm[Hg], 4.11 mm[Hg] Right Atrium Right Atrium Systolic Pressure: 73.45 ml, 73.45 ml Dictated by: Petar Foreman M.D. on 03/13/2022 at 17:37 Approved by: Petar Foreman M.D. on 03/13/2022 at 17:42 Normal [facility] PROF CHEM 8 (BAS METB)on Anion gap [Moles/Vol] 17.8 mmol/L Normal [facility] Comment on above: Performed By: #### C TEGAN MARIN #### [facility] [address] [place] [address] Dr. Mirza Sadler Calcium [Mass/Vol] 8.6 mg/dL Normal 8.5-10.1 [facility] Comment on above: Performed By: #### TEGAN Hoskins MP #### [facility] [address] [place], [place] [address] Dr. Mirza Sadler Chloride [Moles/Vol] 103 mmol/L Normal 98-107 [facility] Comment on above: Performed By: #### C TANIA, CMADM #### [facility] [address] [address] [address] Mirza Sadler CO2 [Moles/Vol] 22.3 mmol/L Normal 21.0-32.0 [facility] Comment on above: Performed By: #### C TANIA, CMADM #### [facility] [address] [address] [address] Mirza Sadler Creatinine [Mass/Vol] 1.81 mg/dL Critically high 0.70-1.30 [facility] Comment on above: Performed By: #### C TANIA, CMADM #### [facility] [address] [place] [address] Dr. Mirza Sadler EGFR-AF SAUDI ARABIAN 45 mL/min/1.73m2 Critically low >=60 [facility] Comment on above: Performed By: #### C TANIA, CMADM #### [facility] [address] [place] [address] Dr. Mirza Sadler EGFR-NON AF SAUDI ARABIAN 37 mL/min/1.73m2 Critically low >=60 [facility] Comment on above: Performed By: #### C TANIA, DOMDM #### [facility] [address] [place] [address] Dr. Mirza Sadler Glucose [Mass/Vol] 161 mg/dL Critically high 74-106 [facility] Comment on above: Performed By: #### C TANIA, CMADM #### [facility] [address] [place] [address] Dr. Mirza Sadler Potassium [Moles/Vol] 4.1 mmol/L Normal 3.5-5.1 [facility] Comment on above: Performed By: #### C TANIA, CMADM #### [facility] [address] [place] [address] Dr. Mirza Sadler Sodium [Moles/Vol] 139 mmol/L Normal 136-145 [facility] Comment on above: Performed By: #### C TANIA, CMADM #### [facility] [address] [place] [address] Dr. Mirza Sadler Urea nitrogen [Mass/Vol] 28.0 mg/dL Critically high 7.0-18.0 [facility] Comment on above: Performed By: #### C TANIA, CMADM #### [facility] [address] [place] [address] Dr. Mirza Sadler Urea nitrogen/Creatinine [Mass ratio] 15.5 mg/mg Normal [facility] Comment on above: Performed By: #### C TANIA, CMADM #### [facility] [address] [place] [address] Dr. Mirza Sadler TROPONIN, HIGH SENSITIVITYon 03-12-2022 HSTROP 47565.5 pg/mL Critically high 4.0-76.1 [facility] Comment on above: Result Comment: CUT- OFF POINTS HAVE BEEN ESTABLISHED BASED ON THE FOURTH UNIVERSAL DEFINITIONS OF MYOCARDIAL INFARCTION. THE UPPER REFERENCE LIMIT (URL) OF TROPONIN, DEFINED THE 99TH PERCENTILE OF cTnI DISTRIBUTION IN A REFERENCE POPULATION, HAS BEEN CONFIRMED THE DECISION THRESHOLD FOR [place] DIAGNOSIS. Performed By: #### C TANIA, CMADM #### [facility] [address] [place] [address] Dr. Mirza Sadler BNPon 03-11-2022 Natriuretic peptide B (Bld) [Mass/Vol] 1378.0 pg/mL Critically high <=900.0 [facility] Comment on above: Performed By: #### P T, PTT #### [facility] [address] [place] [address] Dr. Mirza Sadler CARDIAC PARUL 3-6on 2 CK [Catalytic activity/Vol] 139 U/L Normal 39-308 [facility] Comment on above: Performed By: #### E RUR #### [facility] [address] [place] [address] Dr. Mirza Sadler CK.MB [Mass/Vol] 7.50 ng/mL Critically high <=3.60 [facility] Comment on above: Performed By: #### E RUR #### [facility] [address] [place] [address] Dr. Mirza Sadler HSTROP 1419.3 pg/mL Critically high 4.0-76.1 [facility] Comment on above: Result Comment: CUT- OFF POINTS HAVE BEEN ESTABLISHED BASED ON THE FOURTH UNIVERSAL DEFINITIONS OF MYOCARDIAL INFARCTION. THE UPPER REFERENCE LIMIT (URL) OF TROPONIN, DEFINED THE 99TH PERCENTILE OF cTnI DISTRIBUTION IN A REFERENCE POPULATION, HAS BEEN CONFIRMED THE DECISION THRESHOLD FOR [place] DIAGNOSIS. Performed By: #### E RUR #### [facility] [address] [place] [address] Dr. Mirza Sadler CBC AUTO DIFFon 03-11-2022 BASO # 0.1 103/ul Normal 0.0-0.1 [facility] Comment on above: Performed By: #### E RUR #### [facility] [address] [place] [address] Dr. Mirza Sadler Basophils/100 WBC (Bld) 0.5 % Normal 0.2-2.0 [facility] Comment on above: Performed By: #### E RUR #### [facility] [address] [place] [address] Dr. Mirza Sdaler EO # 0.2 103/ul Normal 0.0-0.7 [facility] Comment on above: Performed By: #### E RUR #### [facility] [address] [place] [address] Dr. Mirza Sadler Eosinophils/100 WBC (Bld) 1.3 % Normal 0.9-7.0 [facility] Comment on above: Performed By: #### E RUR #### [facility] [address] [place] [address] Dr. Mirza Sadler Erythrocyte distribution width (RBC) [Ratio] 14.6 % Normal 11.0-15.0 [facility] Comment on above: Performed By: #### E RUR #### [facility] [address] [place] [address] Dr. Mirza Sadler Hematocrit (Bld) [Volume fraction] 43.1 % Normal 42.0-54.0 [facility] Comment on above: Performed By: #### E RUR #### [facility] [address] [place] [address] Dr. Mirza Sadler Hemoglobin (Bld) [Mass/Vol] 14.2 g/dL Normal 14.0-18.0 [facility] Comment on above: Performed By: #### E RUR #### [facility] [address] [place] [address] Dr. Mirza Sadler IG # 0.07 10e3/ul Critically high 0.00-0.03 [facility] Comment on above: Performed By: #### E RUR #### [facility] [address] [place] [address] Dr. Mirza Sadler IG % 0.5 % Normal 0.0-0.5 [facility] Comment on above: Performed By: #### E RUR #### [facility] [address] [place] [address] Dr. Mirza Sadler LYMPH # 1.3 103/ul Normal 1.2-3.8 [facility] Comment on above: Performed By: #### E RUR #### [facility] [address] [place] [address] Dr. Mirza Sadler Lymphocytes/100 WBC (Bld) 8.6 % Critically low 20.5-60.0 [facility] Comment on above: Performed By: #### E RUR #### [facility] [address] [place] [address] Dr. Mirza Sadler MANUAL DIFF REQ NO Normal [facility] Comment on above: Performed By: #### E RUR #### [facility] [address] [place] [address] Dr. Mirza Sadler MCH (RBC) [Entitic mass] 29.3 pg Normal 25.9-34.0 [facility] Comment on above: Performed By: #### E RUR #### [facility] [address] [place] [address] Dr. Mirza Sadler MCHC (RBC) [Mass/Vol] 32.9 g/dL Normal 29.9-35.2 [facility] Comment on above: Performed By: #### E RUR #### [facility] [address] [place] [address] Dr. Mirza Sadler MCV (RBC) [Entitic vol] 88.9 fL Normal 80.0-94.0 [facility] Comment on above: Performed By: #### E RUR #### [facility] [address] [place] [address] Dr. Mirza Sadler MONO # 0.7 103/ul Normal 0.3-0.8 [facility] Comment on above: Performed By: #### E RUR #### [facility] [address] [place] [address] Dr. Mirza Sadler Monocytes/100 WBC (Bld) 4.3 % Normal 1.7-12.0 [facility] Comment on above: Performed By: #### E RUR #### [facility] [address] [place] [address] Dr. Mirza Sadler NEUT # 12.8 103/ul Critically high 1.4-6.5 [facility] Comment on above: Performed By: #### E RUR #### [facility] [address] [place] [address] Dr. Mirza Sadler Neutrophils/100 WBC (Bld) 84.8 % Critically high 43.0-75.0 [facility] Comment on above: Performed By: #### E RUR #### [facility] [address] [place] [address] Dr. Mirza Sadler Platelet mean volume (Bld) [Entitic vol] 9.9 fL Normal 9.5-13.5 [facility] Comment on above: Performed By: #### E RUR #### [facility] [address] [place] [address] Dr. Mirza Sadler PLT 201 103/ul Normal 150-450 [facility] Comment on above: Performed By: #### E RUR #### [facility] [address] [place] [address] Dr. Mirza Sadler RBC 4.85 106/ul Normal 4.70-6.10 [facility] Comment on above: Performed By: #### E RUR #### [facility] [address] [place] [address] Dr. Mirza Sadler WBC 15.0 103/ul Critically high 4.0-11.0 [facility] Comment on above: Performed By: #### E RUR #### [facility] [address] [place] [address] Dr. Mirza Sadler CULTURE BLOODon 03-11-2022 Microscopic examination of blood, culture Culture Observations: NO GROWTH AT 5 DAYS. Normal [facility] Comment on above: Performed By: #### H STROPN #### [facility] [address] [place] [address] Dr. Mirza Sadler Microscopic examination of blood, culture Culture Observations: NO GROWTH AT 5 DAYS. Normal [facility] Comment on above: Performed By: #### H STROPN #### [facility] [address] [place] [address] Dr. Mirza Sadler Covid-19 PCR ([facility])on 03-01 SARS-CoV-2 (COVID-19) RNA RAMO+probe Ql (Unsp spec) Not detected Normal NOT DETECTED [facility] Comment on above: Result Comment: When diagnostic [...] for this test is supported by the [employer] and Human Service's declaration that [...] By: #### H STROPN #### [facility] [address] [place] [address] Dr. Mirza Sadler ER URINE PROFILEon 2 Bilirubin Ql (U) Negative Normal NEGATIVE [facility] Comment on above: Performed By: #### E RUR #### [facility] [address] [place] [address] Dr. Mirza Sadler Clarity (U) CLEAR Normal CLEAR [facility] Comment on above: Performed By: #### E RUR #### [facility] [address] [place] [address] Dr. Mirza Sadler Color (U) LT. YELLOW Normal YELLOW [facility] Comment on above: Performed By: #### E RUR #### [facility] [address] [place] [address] Dr. Mirza Sadler ERUAHD A micrscopic examina tion will be performed if indicated. Normal [facility] Comment on above: Performed By: #### E RUR #### [facility] [address] [place] [address] Dr. Mirza Sadler Glucose Ql (U) >1000 Abnormal NEGATIVE [facility] Comment on above: Performed By: #### E RUR #### [facility] [address] [place] [address] Dr. Mirza Sadler Hemoglobin Ql (U) Negative Normal NEGATIVE [facility] Comment on above: Performed By: #### E RUR #### [facility] [address] [place] [address] Dr. Mirza Sadler Ketones Ql (U) 15 mg/dl Abnormal NEGATIVE [facility] Comment on above: Performed By: #### E RUR #### [facility] [address] [place] [address] Dr. Mirza Sadler LEUKOCYTES Negative Normal NEGATIVE [facility] Comment on above: Performed By: #### E RUR #### [facility] [address] [place] [address] Dr. Mirza Sadler Nitrite Ql (U) Negative Normal NEGATIVE [facility] Comment on above: Performed By: #### E RUR #### [facility] [address] [place] [address] Dr. Mirza Sadler pH (U) 5.0 [pH] Normal 5-9 [facility] Comment on above: Performed By: #### E RUR #### [facility] [address] [place] [address] Dr. Mirza Sadler SPEC GRAVITY 1.020 Normal 1.005-<=1. 025 [facility] Comment on above: Performed By: #### E RUR #### [facility] [address] [place] [address] Dr. Mirza Sadler UA PROTEIN TRACE Normal NEGATIVE/ TRACE [facility] Comment on above: Performed By: #### E RUR #### [facility] [address] [place] [address] Dr. Mirza Sadler UR MICRO IND NOT INDICATED Normal [facility] Comment on above: Performed By: #### E RUR #### [facility] [address] [place] [address] Dr. Mirza Sadler Urobilinogen Qn (U) 0.2 {Luisito'U}/dL Normal 0.2 - 1. 0 [facility] Comment on above: Performed By: #### E RUR #### [facility] [address] [place] [address] Dr. Mirza Sadler POINT OF CARE GLUCOSEon 03-01 Glucose [Mass/Vol] 161 mg/dL Critically high 74-106 [facility] Comment on above: Performed By: #### P T, PTT #### [facility] [address] [place] [address] Dr. Mirza Sadler PROF 14(COMP METB)on 022 Albumin [Mass/Vol] 4.3 g/dL Normal 3.4-5.0 [facility] Comment on above: Performed By: #### P T, PTT #### [facility] [address] [place] [address] Dr. Mirza Sadler Albumin/Globulin [Mass ratio] 1.1 {ratio} Normal [facility] Comment on above: Performed By: #### P T, PTT #### [facility] [address] [place] [address] Dr. Mirza Sadler ALP [Catalytic activity/Vol] 156 U/L Critically high 46-116 [facility] Comment on above: Performed By: #### P T, PTT #### [facility] [address] [address] [address] Mirza Sadler ALT [Catalytic activity/Vol] 24 U/L Normal 16-63 [facility] Comment on above: Performed By: #### P T, PTT #### [facility] [address] [address] [address] Mirza Sadler Anion gap [Moles/Vol] 16.7 mmol/L Normal [facility] Comment on above: Performed By: #### P T, PTT #### [facility] [address] [address] [address] Mirza Sadler AST [Catalytic activity/Vol] 21 U/L Normal 15-37 [facility] Comment on above: Performed By: #### P T, PTT #### [facility] [address] [place] [address] Dr. Mirza Sadler Bilirubin [Mass/Vol] 1.1 mg/dL Critically high 0.2-1.0 [facility] Comment on above: Performed By: #### P T, PTT #### [facility] [address] [address] [address] Mirza Sadler Calcium [Mass/Vol] 8.8 mg/dL Normal 8.5-10.1 [facility] Comment on above: Performed By: #### P T, PTT #### [facility] [address] [address] [address] Mirza Sadler Chloride [Moles/Vol] 105 mmol/L Normal 98-107 [facility] Comment on above: Performed By: #### P T, PTT #### [facility] [address] [address] [address] Mirza Sadler CO2 [Moles/Vol] 25.0 mmol/L Normal 21.0-32.0 [facility] Comment on above: Performed By: #### P T, PTT #### [facility] [address] [address] [address] Mirza Sadler Creatinine [Mass/Vol] 1.57 mg/dL Critically high 0.70-1.30 [facility] Comment on above: Performed By: #### P T, PTT #### [facility] [address] [address] [address] Mirza Sadler EGFR-AF SAUDI ARABIAN 53 mL/min/1.73m2 Critically low >=60 [facility] Comment on above: Performed By: #### P T, PTT #### [facility] [address] [address] [address] Mirza Sadler EGFR-NON AF SAUDI ARABIAN 44 mL/min/1.73m2 Critically low >=60 [facility] Comment on above: Performed By: #### P T, PTT #### [facility] [address] [address] [address] Mirza Sadler Globulin (S) [Mass/Vol] 3.9 g/dL Normal [facility] Comment on above: Performed By: #### P T, PTT #### [facility] [address] [address] [address] Mirza Sadler Glucose [Mass/Vol] 188 mg/dL Critically high 74-106 [facility] Comment on above: Performed By: #### P T, PTT #### [facility] [address] [address] [address] Mirza Sadler Potassium [Moles/Vol] 3.7 mmol/L Normal 3.5-5.1 [facility] Comment on above: Performed By: #### P T, PTT #### [facility] [address] [address] [address] Mirza Sadler Protein [Mass/Vol] 8.2 g/dL Normal 6.4-8.2 [facility] Comment on above: Performed By: #### P T, PTT #### [facility] [address] [address] [address] Mirza Sadler Sodium [Moles/Vol] 143 mmol/L Normal 136-145 [facility] Comment on above: Performed By: #### P T, PTT #### [facility] [address] [address] [address] Mirza Sadler Urea nitrogen [Mass/Vol] 20.0 mg/dL Critically high 7.0-18.0 [facility] Comment on above: Performed By: #### P T, PTT #### [facility] [address] [place] [address] Dr. Mirza Sadler Urea nitrogen/Creatinine [Mass ratio] 12.7 mg/mg Normal [facility] Comment on above: Performed By: #### P T, PTT #### [facility] [address] [place] [address] Dr. Mirza Sadler RESPIRATORY PANEL PLUSon Adenovirus Not detected Normal NOT DETECTED [facility] Comment on above: Performed By: #### P T, PTT #### [facility] [address] [place] [address] Dr. Mirza Ball Parapertusis Not detected Normal NOT DETECTED [facility] Comment on above: Performed By: #### P T, PTT #### [facility] [address] [place] [address] Dr. Mirza Ball Pertussis Not detected Normal NOT DETECTED [facility] Comment on above: Performed By: #### P T, PTT #### [facility] [address] [place] [address] Dr. Mirza Sadler Chlamydia Pneumoniae Not detected Normal NOT DETECTED [facility] Comment on above: Performed By: #### P T, PTT #### [facility] [address] [place] [address] Dr. Mirza Sadler Coronavirus 229E Not detected Normal NOT DETECTED [facility] Comment on above: Performed By: #### P T, PTT #### [facility] [address] [place] [address] Dr. Mirza Sadler Coronavirus HKU1 Not detected Normal NOT DETECTED [facility] Comment on above: Performed By: #### P T, PTT #### [facility] [address] [place] [address] Dr. Mirza Sadler Coronavirus NL63 Not detected Normal NOT DETECTED [facility] Comment on above: Performed By: #### P T, PTT #### [facility] [address] [place] [address] Dr. Mirza Sadler Coronavirus OC43 Not detected Normal NOT DETECTED [facility] Comment on above: Performed By: #### P T, PTT #### [facility] [address] [place] [address] Dr. Mirza Sadler Influenza A H1 2009 Not detected Normal NOT DETECTED [facility] Comment on above: Performed By: #### P T, PTT #### [facility] [address] [place] [address] Dr. Mirza Sadler Influenza A H3 Not detected Normal NOT DETECTED [facility] Comment on above: Performed By: #### P T, PTT #### [facility] [address] [place] [address] Dr. Mirza Sadler Influenza B Not detected Normal NOT DETECTED [facility] Comment on above: Performed By: #### P T, PTT #### [facility] [address] [place] [address] Dr. Mirza Sadler Metapneumovirus Not detected Normal NOT DETECTED [facility] Comment on above: Performed By: #### P T, PTT #### [facility] [address] [place] [address] Dr. Mirza Sadler Mycoplas. Pneumoniae Not detected Normal NOT DETECTED [facility] Comment on above: Performed By: #### P T, PTT #### [facility] [address] [place] [address] Dr. Mirza Sadler Parainfluenza 1 Not detected Normal NOT DETECTED [facility] Comment on above: Performed By: #### P T, PTT #### [facility] [address] [place] [address] Dr. Mirza Sadler Parainfluenza 2 Not detected Normal NOT DETECTED [facility] Comment on above: Performed By: #### P T, PTT #### [facility] [address] [place] [address] Dr. Mirza Sadler Parainfluenza 3 Not detected Normal NOT DETECTED [facility] Comment on above: Performed By: #### P T, PTT #### [facility] [address] [place] [address] Dr. Mirza Sadler Parainfluenza 4 Not detected Normal NOT DETECTED [facility] Comment on above: Performed By: #### P T, PTT #### [facility] [address] [place] [address] Dr. Mirza Sadler Rhino/Enterovirus Not detected Normal NOT DETECTED [facility] Comment on above: Performed By: #### P T, PTT #### [facility] [address] [place] [address] Dr. Mirza Sadler RP2 Header 1 RESPIRATORY PANEL: VIRUSES Normal [facility] Comment on above: Performed By: #### P T, PTT #### [facility] [address] [place] [address] Dr. Mirza Sadler RP2 Header 2 RESPIRATORY PANEL: BACTERIA Normal [facility] Comment on above: Performed By: #### P T, PTT #### [facility] [address] [place] [address] Dr. Mirza Sadler RSV Not detected Normal NOT DETECTED [facility] Comment on above: Performed By: #### P T, PTT #### [facility] [address] [place] [address] Dr. Mirza Sadler SARS-CoV-2 (COVID-19) RNA RAMO+probe Ql (Unsp spec) Not detected Normal NOT DETECTED [facility] Comment on above: Performed By: #### P T, PTT #### [facility] [address] [place] [address] Dr. Mirza Sadler TROPONIN, HIGH SENSITIVITYon 03-11-2022 HSTROP 09387.8 pg/mL Critically high 4.0-76.1 [facility] Comment on above: Result Comment: CUT- OFF POINTS HAVE BEEN ESTABLISHED BASED ON THE FOURTH UNIVERSAL DEFINITIONS OF MYOCARDIAL INFARCTION. THE UPPER REFERENCE LIMIT (URL) OF TROPONIN, DEFINED THE 99TH PERCENTILE OF cTnI DISTRIBUTION IN A REFERENCE POPULATION, HAS BEEN CONFIRMED THE DECISION THRESHOLD FOR [place] DIAGNOSIS. Performed By: #### C MP, CMADM #### [facility] [address] [place] [address] Dr. Mirza Sadler HSTROP 41.0 pg/mL Normal 4.0-76.1 [facility] Comment on above: Result Comment: CUT- OFF POINTS HAVE BEEN ESTABLISHED BASED ON THE FOURTH UNIVERSAL DEFINITIONS OF MYOCARDIAL INFARCTION. THE UPPER REFERENCE LIMIT (URL) OF TROPONIN, DEFINED THE 99TH PERCENTILE OF cTnI DISTRIBUTION IN A REFERENCE POPULATION, HAS BEEN CONFIRMED THE DECISION THRESHOLD FOR [place] DIAGNOSIS. Performed By: #### P T, PTT #### [facility] [address] [place], [place] [id number] Dr. Mirza Sadler XR CHEST 1 Von [...] Kayden ACEVES Date: 2022-03-11 05:42 Normal [facility] NM MUGAon 03-09-2022 NM MUGA [...] SHANNON LANDIS Date: 2022-03-09 12:26 Normal [facility] CT CHEST WO CONon 03-02-2022 [...] Date: 2022-03-02 08:52 Normal [facility] Creatinine and Glomerular fi ltration rate.predicted panel (S/P/Bld)Ordered By: Gagan Shahid on 01-17-2022 Creatinine [Mass/Vol] 1.53 mg/dL 0.64-1.27 [facility] Estimated glomerular filtrat ion rate (GFR) non- AmericanOrdered By: Gagan Shahid on 01-17-2022 GFR/1.73 sq M.predicted among non-blacks MDRD (S/P/Bld) [Vol rate/Area] 45 mL/Min [facility] Glucose Glucometer (BldC) [M ass/Vol]Ordered By: Gagan Shahid on 01-17-2022 Glucose [Mass/Vol] 178 mg/dL [facility] Comment on above: Random Glucose Refer ence Range is dependent on time and content of last meal. Glucose of more than 200 mg/dL in a nonstressed, ambulatory subject supports the diagnosis of Diabetes Mellitus. No Panel InformationOrdered By: Gagan Shahid on 01-17-2022 Estimated GFR () 55 mL/Min [facility] Comment on above: GFR estimated refere nce range: According to KDOQI guidelines, <60 ml/min/1.73m2 is sufficient to diagnose a patient with chronic kidney disease. Pharmacy Creatinine Clearance (Chem 42.00 [facility] Serum or plasma anion gap de terminationOrdered By: Gagan Shahid on 01-17-2022 Anion gap [Moles/Vol] 12.0 mmol/L 6.0-15.0 [facility] Serum or plasma calcium radha urement (mass/volume)Ordered By: Gagan Shahid on 01-17-2022 Calcium [Mass/Vol] 9.0 mg/dL 8.2-10.2 [facility] Serum or plasma chloride shanae surement (moles/volume)Ordered By: Gagan Shahid on 01-17-2022 Chloride [Moles/Vol] 107 mmol/L 95-114 [facility] Serum or plasma glucose radha urement (mass/volume)Ordered By: Gagan Shahid on 01-17-2022 Glucose [Mass/Vol] 142 mg/dL 70-100 [facility] Comment on above: ADA recommended refe rence rangeRandom Glucose Reference Range is dependent on time and content of last meal. Glucose of more than 200 mg/dL in a nonstressed, ambulatory subject supports the diagnosis of Diabetes Mellitus. Serum or plasma potassium me asurement (moles/volume)Ordered By: Gagan Shahid on 01-17-2022 Potassium [Moles/Vol] 3.5 mmol/L 3.5-5.1 [facility] Serum or plasma sodium measu rement (moles/volume)Ordered By: Gagan Shahid on 01-17-2022 Sodium [Moles/Vol] 137 mmol/L 136-146 [facility] Serum or plasma total carbon dioxide measurement (moles/volume)Ordered By: Gagan Shahid on 01-17-2022 CO2 [Moles/Vol] 21.5 mmol/L 22.0-30.0 [facility] Serum or plasma urea nitroge n measurement (mass/volume)Ordered By: Gagan Shahid on 01-17-2022 Urea nitrogen [Mass/Vol] 24 mg/dL 9-23 [facility] Activated partial thrombopla stin time (aPTT) in platelet poor plasma by coagulation aOrdered By: Gagan Shahid on 01-16-2022 aPTT Coag (PPP) [Time] 42.1 s 25.1-36.5 [facility] Basophils Auto (Bld) [#/Vol] Ordered By: Gagan Shahid on 01-16-2022 Basophils (Bld) [#/Vol] 0.0 10*3/uL 0.0-0.2 [facility] Basophils/100 WBC Auto (Bld) Ordered By: Gagan Shahid on 01-16-2022 Basophils/100 WBC (Bld) 0.5 % . [facility] Creatine kinase [Enzymatic a ctivity/volume] in Serum or PlasmaOrdered By: Gagan Shahid on 01-16-2022 CK [Catalytic activity/Vol] 92 U/L [facility] Eosinophils Auto (Bld) [#/Vo l]Ordered By: Gagan Shahid on 01-16-2022 Eosinophils (Bld) [#/Vol] 0.2 10*3/uL 0.0-0.45 [facility] Eosinophils/100 WBC Auto (Bl d)Ordered By: Gagan Shahid on 01-16-2022 Eosinophils/100 WBC (Bld) 2.4 % . [facility] Erythrocyte distribution wid th Auto (RBC) [Ratio]Ordered By: Gagan Shahid on 01-16-2022 Erythrocyte distribution width (RBC) [Ratio] 14.6 % 12.0-14.8 [facility] Hematocrit Auto (Bld) [Volum e fraction]Ordered By: Gagan Shahid on 01-16-2022 Hematocrit (Bld) [Volume fraction] 43.4 % 38.8-50.0 [facility] Hemoglobin [Mass/volume] in BloodOrdered By: Gagan Shahid on 01-16-2022 Hemoglobin (Bld) [Mass/Vol] 14.4 g/dL 13.0-17.0 [facility] - Chemistry and C hemistry - challengeOrdered By: Gagan Shahid on 01-16-2022 Magnesium [Mass/Vol] 1.9 mg/dL 1.6-2.6 [facility] - CoagulationOrde red By: Gagan Shahid on 01-16-2022 PT Coag (PPP) [Time] 15.7 s 9.0-12.9 [facility] - Hematology and Cell countsOrdered By: Gagan Shahid on 01-16-2022 Nucleated RBC/100 WBC (Bld) [Ratio] 0.1 % 0-0.5 [facility] Leukocytes [#/volume] in Blo od by Automated countOrdered By: Gagan Shahid on 01-16-2022 WBC (Bld) [#/Vol] 8.2 10*3/uL 4.5-11.0 [facility] Lymphocytes Auto (Bld) [#/Vo l]Ordered By: Gagan Shahid on 01-16-2022 Lymphocytes (Bld) [#/Vol] 1.6 10*3/uL 1.00-4.8 [facility] Lymphocytes/100 WBC Auto (Bl d)Ordered By: Gagan Shahid on 01-16-2022 Lymphocytes/100 WBC (Bld) 19.5 % . [facility] MCH Auto (RBC) [Entitic mass ]Ordered By: Gagan Shahid on 01-16-2022 MCH (RBC) [Entitic mass] 29.4 pg 27.5-35.2 [facility] [facility] MCHC Auto (RBC) [Mass/Vol]Or dered By: Gagan Shahid on 01-16-2022 MCHC (RBC) [Mass/Vol] 33.2 g/dL 32.5-35.6 [facility] MCV Auto (RBC) [Entitic vol] Ordered By: Gagan Shahid on 01-16-2022 MCV (RBC) [Entitic vol] 88.5 fL 83.5-101 [facility] Monocytes Auto (Bld) [#/Vol] Ordered By: Gagan Shahid on 01-16-2022 Monocytes (Bld) [#/Vol] 0.8 10*3/uL 0.0-0.8 [facility] Monocytes/100 WBC Auto (Bld) Ordered By: Gagan Shahid on 01-16-2022 Monocytes/100 WBC (Bld) 9.1 % . [facility] Neutrophils Auto (Bld) [#/Vo l]Ordered By: Gagan Shahid on 01-16-2022 Neutrophils (Bld) [#/Vol] 5.6 10*3/uL 1.8-7.7 [facility] Neutrophils/100 WBC Auto (Bl d)Ordered By: Gagan Shahid on 01-16-2022 Neutrophils/100 WBC (Bld) 68.5 % . [facility] No Panel InformationOrdered By: Gagan Shahid on 01-16-2022 Bedside Glucose Comment Glu2: cleaned meter [facility] Platelet mean volume Auto (B ld) [Entitic vol]Ordered By: Gagan Shahid on 01-16-2022 Platelet mean volume (Bld) [Entitic vol] 8.4 fL 6.6-10.1 [facility] Platelet poor plasma interna tional normalized ratio (INR) by coagulation assay (relatOrdered By: Gagan Shahid on 01-16-2022 INR Coag (PPP) [Relative time] 1.4 {INR} [facility] Comment on above: INR Therapeutic Rang [...] 01-16-2022 Platelets (Bld) [#/Vol] 178 10*3/uL 150-450 [facility] RBC Auto (Bld) [#/Vol]Ordere d By: Gagan Shahid on 01-16-2022 RBC (Bld) [#/Vol] 4.90 10*6/uL 3.90-5.60 [facility] Serum or plasma creatine kin ase MB (CKMB)/total creatine kinase (CK) ratio by calculaOrdered By: Gagan Shahid on 01-16-2022 CK.MB Calc [Catalytic fraction] 3.2 % 0.00-2.50 [facility] Serum or plasma creatine kin ase MB measurement (mass/volume)Ordered By: Gagan Shahid on 01-16-2022 CK.MB [Mass/Vol] 3.0 ng/mL 0.6-6.3 [facility] Troponin I.cardiac [Mass/vol ume] in Serum or Plasma by High sensitivity methodOrdered By: Gagan Shahid on 01-16-2022 Troponin I.cardiac High sensitivity method [Mass/Vol] 525 pg/mL 0-20 [facility] Comment on above: Critical valueresult calledat 1844 on 01/16/22 BNPon 01-15-2022 Natriuretic peptide B (Bld) [Mass/Vol] 1012.0 pg/mL Critically high <=900.0 [facility] Comment on above: Performed By: #### B SQUEAK RATTLE AND LEAK REPAIRER #### [facility] [address] [place] [address] Dr. Mirza Sadler CARDIAC PARUL ADMITon 022 CK [Catalytic activity/Vol] 93 U/L Normal 39-308 [facility] Comment on above: Performed By: #### C TANIA, DOMDM #### [facility] [address] [place] [address] Dr. Mirza Sadler CK.MB [Mass/Vol] 1.67 ng/mL Normal <=3.60 [facility] Comment on above: Performed By: #### C TANIA, CMADM #### [facility] [address] [place] [address] Dr. Mirza Sadler HSTROP 17.1 pg/mL Normal 4.0-76.1 [facility] Comment on above: Result Comment: CUT- OFF POINTS HAVE BEEN ESTABLISHED BASED ON THE FOURTH UNIVERSAL DEFINITIONS OF MYOCARDIAL INFARCTION. THE UPPER REFERENCE LIMIT (URL) OF TROPONIN, DEFINED THE 99TH PERCENTILE OF cTnI DISTRIBUTION IN A REFERENCE POPULATION, HAS BEEN CONFIRMED THE DECISION THRESHOLD FOR [place] DIAGNOSIS. Performed By: #### C TANIA, CMADM #### [facility] [address] [place] [address] Dr. Mirza Sadler RACHEL 63 ng/mL Normal 16-96 [facility] Comment on above: Performed By: #### C TANIA, CMADM #### [facility] [address] [place] [address] Dr. Mirza Sadler CBC AUTO DIFFon 01-15-2022 BASO # 0.1 103/ul Normal 0.0-0.1 [facility] Comment on above: Performed By: #### E RUR #### [facility] [address] [place] [address] Dr. Mirza Sadler Basophils/100 WBC (Bld) 0.9 % Normal 0.2-2.0 [facility] Comment on above: Performed By: #### E RUR #### [facility] [address] [place] [address] Dr. Mirza Sadler EO # 0.3 103/ul Normal 0.0-0.7 [facility] Comment on above: Performed By: #### E RUR #### [facility] [address] [place] [address] Dr. Mirza Sadler Eosinophils/100 WBC (Bld) 3.1 % Normal 0.9-7.0 [facility] Comment on above: Performed By: #### E RUR #### [facility] [address] [place] [address] Dr. Mizra Sadler Erythrocyte distribution width (RBC) [Ratio] 14.2 % Normal 11.0-15.0 [facility] Comment on above: Performed By: #### E RUR #### [facility] [address] [place] [address] Dr. Mirza Sadler Hematocrit (Bld) [Volume fraction] 44.4 % Normal 42.0-54.0 [facility] Comment on above: Performed By: #### E RUR #### [facility] [address] [place] [address] Dr. Mirza Sadler Hemoglobin (Bld) [Mass/Vol] 14.4 g/dL Normal 14.0-18.0 [facility] Comment on above: Performed By: #### E RUR #### [facility] [address] [place] [address] Dr. Mirza Sadler IG # 0.03 10e3/ul Normal 0.00-0.03 [facility] Comment on above: Performed By: #### E RUR #### [facility] [address] [place] [address] Dr. Mirza Sadler IG % 0.3 % Normal 0.0-0.5 [facility] Comment on above: Performed By: #### E RUR #### [facility] [address] [address] [address] Mirza Sadler LYMPH # 1.6 103/ul Normal 1.2-3.8 [facility] Comment on above: Performed By: #### E RUR #### [facility] [address] [place] [address] Dr. Mirza Sadler Lymphocytes/100 WBC (Bld) 16.8 % Critically low 20.5-60.0 [facility] Comment on above: Performed By: #### E RUR #### [facility] [address] [place] [address] Dr. Mirza Sadler MANUAL DIFF REQ NO Normal [facility] Comment on above: Performed By: #### E RUR #### [facility] [address] [place] [address] Dr. Mirza Sadler MCH (RBC) [Entitic mass] 29.4 pg Normal 25.9-34.0 [facility] Comment on above: Performed By: #### E RUR #### [facility] [address] [place] [address] Dr. Mirza Sadler MCHC (RBC) [Mass/Vol] 32.4 g/dL Normal 29.9-35.2 [facility] Comment on above: Performed By: #### E RUR #### [facility] [address] [place] [address] Dr. Mirza Sadler MCV (RBC) [Entitic vol] 90.6 fL Normal 80.0-94.0 [facility] Comment on above: Performed By: #### E RUR #### [facility] [address] [place] [address] Dr. Mirza Sadler MONO # 0.5 103/ul Normal 0.3-0.8 [facility] Comment on above: Performed By: #### E RUR #### [facility] [address] [address] [address] Mirza Sadler Monocytes/100 WBC (Bld) 5.9 % Normal 1.7-12.0 [facility] Comment on above: Performed By: #### E RUR #### [facility] [address] [address] [address] Mirza Sadler NEUT # 6.7 103/ul Critically high 1.4-6.5 [facility] Comment on above: Performed By: #### E RUR #### [facility] [address] [place] [address] Dr. Mirza Sadler Neutrophils/100 WBC (Bld) 73.0 % Normal 43.0-75.0 [facility] Comment on above: Performed By: #### E RUR #### [facility] [address] [place] [address] Dr. Mirza Sadler Platelet mean volume (Bld) [Entitic vol] 10.0 fL Normal 9.5-13.5 [facility] Comment on above: Performed By: #### E RUR #### [facility] [address] [place] [address] Dr. Mirza Sadler PLT 190 103/ul Normal 150-450 [facility] Comment on above: Performed By: #### E RUR #### [facility] [address] [place] [address] Dr. Mirza Sadler RBC 4.90 106/ul Normal 4.70-6.10 [facility] Comment on above: Performed By: #### E RUR #### [facility] [address] [place] [address] Dr. Mirza Sadler WBC 9.2 103/ul Normal 4.0-11.0 [facility] Comment on above: Performed By: #### E RUR #### [facility] [address] [place] [address] CHEST WO CONon [...] HIGINIO FLANAGAN Date: 2022-01-15 08:19 Normal [facility] CULTURE BLOODon 01-15-2022 Microscopic examination of blood, culture Culture Observations: NO GROWTH AT 5 DAYS. Normal [facility] Comment on above: Performed By: #### H STROPN #### [facility] [address] [address] [address] Mirza Sadler Microscopic examination of blood, culture Culture Observations: NO GROWTH AT 5 DAYS. Normal [facility] Comment on above: Performed By: #### B LDCX1 #### [facility] [address] [place], [place] [address] Dr. Mirza Sadler Covid-19 PCR (CVDTB)on 12-30 SARS-CoV-2 (COVID-19) RNA RAMO+probe Ql (Unsp spec) Not detected Normal NOT DETECTED [facility] Comment on above: Result Comment: When diagnostic [...] for this test is supported by the [employer] and Human Service's declaration that [...] longer be used). Performed By: #### B SQUEAK RATTLE AND LEAK REPAIRER #### [facility] [address] [place] [address] Dr. Mirza Sadler ER URINE PROFILEon 2 Bilirubin Ql (U) Negative Normal NEGATIVE [facility] Comment on above: Performed By: #### C DOM MARINDM #### [facility] [address] [place] [address] Dr. Mirza Sadler Clarity (U) CLEAR Normal CLEAR [facility] Comment on above: Performed By: #### C TANIA, CMADM #### [facility] [address] [place] [address] Dr. Mirza Sadler Color (U) LT. YELLOW Normal YELLOW [facility] Comment on above: Performed By: #### C TANIA, CMADM #### [facility] [address] [place] [address] Dr. Mirza Sadler ERUAHD A micrscopic examina tion will be performed if indicated. Normal [facility] Comment on above: Performed By: #### C TANIA, CMADM #### [facility] [address] [place] [address] Dr. Mirza Sadler Glucose Ql (U) >1000 Abnormal NEGATIVE [facility] Comment on above: Performed By: #### C MP, CMADM #### [facility] [address] [address] [address] Mirza Sadler Hemoglobin Ql (U) Negative Normal NEGATIVE [facility] Comment on above: Performed By: #### C MP, CMADM #### [facility] [address] [address] [address] Mirza Sadler Ketones Ql (U) TRACE Abnormal NEGATIVE [facility] Comment on above: Performed By: #### C MP, CMADM #### [facility] [address] [place] [address] Dr. Mirza Sadler LEUKOCYTES Negative Normal NEGATIVE [facility] Comment on above: Performed By: #### C MP, CMADM #### [facility] [address] [place] [address] Dr. Mirza Sadler Nitrite Ql (U) Negative Normal NEGATIVE [facility] Comment on above: Performed By: #### C TANIA, CMADM #### [facility] [address] [place] [address] Dr. Mirza Sadler pH (U) 5.5 [pH] Normal 5-9 [facility] Comment on above: Performed By: #### C TANIA, CMADM #### [facility] [address] [place] [address] Dr. Mirza Sadler SPEC GRAVITY 1.020 Normal 1.005-<=1. 025 [facility] Comment on above: Performed By: #### C TANIA, CMADM #### [facility] [address] [place] [address] Dr. Mirza Sadler UA PROTEIN TRACE Normal NEGATIVE/ TRACE [facility] Comment on above: Performed By: #### C TANIA, CMADM #### [facility] [address] [place] [address] Dr. Mirza Sadler UR MICRO IND NOT INDICATED Normal [facility] Comment on above: Performed By: #### C TANIA, CMADM #### [facility] [address] [place] [address] Dr. Mirza Sadler Urobilinogen Qn (U) 0.2 {Luisito'U}/dL Normal 0.2 - 1. 0 [facility] Comment on above: Performed By: #### C MP, CMADM #### [facility] [address] [address] [address] Mirza Sadler LACTATE/LACTIC ACIDon 2021 Lactate [Moles/Vol] 0.8 mmol/L Normal 0.4-1.9 [facility] Comment on above: Performed By: #### P T, PTT #### [facility] [address] [address] [address] Mirza Sadler PROF 14(COMP METB)on 022 Albumin [Mass/Vol] 4.4 g/dL Normal 3.4-5.0 [facility] Comment on above: Performed By: #### C TANIA, CMADM #### [facility] [address] [place] [address] Dr. Mirza Sadler Albumin/Globulin [Mass ratio] 1.3 {ratio} Normal [facility] Comment on above: Performed By: #### C TANIA, CMADM #### [facility] [address] [address] [address] Mirza Sadler ALP [Catalytic activity/Vol] 155 U/L Critically high 46-116 [facility] Comment on above: Performed By: #### C TANIA, CMADM #### [facility] [address] [address] [address] Mirza Sadler ALT [Catalytic activity/Vol] 27 U/L Normal 16-63 [facility] Comment on above: Performed By: #### C TANIA, CMADM #### [facility] [address] [address] [address] Mirza Sadler Anion gap [Moles/Vol] 14.9 mmol/L Normal [facility] Comment on above: Performed By: #### C MP, CMADM #### [facility] [address] [place] [address] Dr. Mirza Sadler AST [Catalytic activity/Vol] 22 U/L Normal 15-37 [facility] Comment on above: Performed By: #### C MP, CMADM #### [facility] [address] [address] [address] Mirza Sadler Bilirubin [Mass/Vol] 0.8 mg/dL Normal 0.2-1.0 [facility] Comment on above: Performed By: #### C MP, CMADM #### [facility] [address] [place] [address] Dr. Mirza Sadler Calcium [Mass/Vol] 8.8 mg/dL Normal 8.5-10.1 [facility] Comment on above: Performed By: #### C MP, CMADM #### [facility] [address] [address] [address] Mirza Sadler Chloride [Moles/Vol] 106 mmol/L Normal 98-107 [facility] Comment on above: Performed By: #### C MP, CMADM #### [facility] [address] [place] [address] Dr. Mirza Sadler CO2 [Moles/Vol] 23.9 mmol/L Normal 21.0-32.0 [facility] Comment on above: Performed By: #### C MP, CMADM #### [facility] [address] [place] [address] Dr. Mirza Sadler Creatinine [Mass/Vol] 1.51 mg/dL Critically high 0.70-1.30 [facility] Comment on above: Performed By: #### C MP, CMADM #### [facility] [address] [place] [address] Dr. Mirza Sadler EGFR-AF SAUDI ARABIAN 56 mL/min/1.73m2 Critically low >=60 [facility] Comment on above: Performed By: #### C MP, CMADM #### [facility] [address] [place] [address] Dr. Mirza Sadler EGFR-NON AF SAUDI ARABIAN 46 mL/min/1.73m2 Critically low >=60 [facility] Comment on above: Performed By: #### C MP, CMADM #### [facility] [address] [place] [address] Dr. Mirza Sadler Globulin (S) [Mass/Vol] 3.4 g/dL Normal [facility] Comment on above: Performed By: #### C TANIA, TEGAN #### [facility] [address] [place] [address] Dr. Mirza Sadler Glucose [Mass/Vol] 189 mg/dL Critically high 74-106 [facility] Comment on above: Performed By: #### C TANIA, TEGAN #### [facility] [address] [place] [address] Dr. Mirza Sadler Potassium [Moles/Vol] 3.8 mmol/L Normal 3.5-5.1 [facility] Comment on above: Performed By: #### C TEGAN MARIN #### [facility] [address] [place] [address] Dr. Mirza Sadler Protein [Mass/Vol] 7.8 g/dL Normal 6.4-8.2 [facility] Comment on above: Performed By: #### C TEGAN MARIN #### [facility] [address] [place] [address] Dr. Mirza Sadler Sodium [Moles/Vol] 141 mmol/L Normal 136-145 [facility] Comment on above: Performed By: #### C TEGAN MARIN #### [facility] [address] [place] [address] Dr. Mirza Sadler Urea nitrogen [Mass/Vol] 22.0 mg/dL Critically high 7.0-18.0 [facility] Comment on above: Performed By: #### C TEGAN MARIN #### [facility] [address] [place] [address] Dr. Mirza Sadler Urea nitrogen/Creatinine [Mass ratio] 14.6 mg/mg Normal [facility] Comment on above: Performed By: #### C DOM MARINDM #### [facility] [address] [place] [address] Dr. Mirza Sadler PROTIMEon 01-15-2022 INR Coag (PPP) [Relative time] 1.10 {INR} Normal [facility] Comment on above: Performed By: #### E RUR #### [facility] [address] [address] [address] Mirza Sadler INR GUIDELINES SEE BELOW Normal [facility] Comment on above: Result Comment: RIVKA RED INR: 2.0 - 3.0 CONDITIONS NOT LISTED BELOW 2.5 - 3.5 FOR PROSTHETIC HEART VALVE REPLACEMENT 2.5 - 3.5 RECURRENT THROMBOSIS Performed By: #### E RUR #### [facility] [address] [place] [address] Dr. Mirza Sadler PT Coag (PPP) [Time] 11.8 s Critically high 9.0-11.6 [facility] Comment on above: Performed By: #### E RUR #### [facility] [address] [place] [address] Dr. Mirza Sadler PTTon 01-15-2022 aPTT Coag (Bld) [Time] 29.0 s Normal 22.3-36.2 [facility] Comment on above: Performed By: #### E RUR #### [facility] [address] [place] [address] Dr. Mirza Sadler TROPONIN, HIGH SENSITIVITYon 01-15-2022 HSTROP 1786.2 pg/mL Critically high 4.0-76.1 [facility] Comment on above: Result Comment: CUT- OFF POINTS HAVE BEEN ESTABLISHED BASED ON THE FOURTH UNIVERSAL DEFINITIONS OF MYOCARDIAL INFARCTION. THE UPPER REFERENCE LIMIT (URL) OF TROPONIN, DEFINED THE 99TH PERCENTILE OF cTnI DISTRIBUTION IN A REFERENCE POPULATION, HAS BEEN CONFIRMED THE DECISION THRESHOLD FOR [place] DIAGNOSIS. Performed By: #### H STROPN #### [facility] [address] [place] [address] Dr. Mirza Sadler HSTROP 669.3 pg/mL Critically high 4.0-76.1 [facility] Comment on above: Result Comment: CUT- OFF POINTS HAVE BEEN ESTABLISHED BASED ON THE FOURTH UNIVERSAL DEFINITIONS OF MYOCARDIAL INFARCTION. THE UPPER REFERENCE LIMIT (URL) OF TROPONIN, DEFINED THE 99TH PERCENTILE OF cTnI DISTRIBUTION IN A REFERENCE POPULATION, HAS BEEN CONFIRMED THE DECISION THRESHOLD FOR [place] DIAGNOSIS. Performed By: #### H STROPN #### [facility] [address] [place] [address] Dr. Mirza Sadler XR CHEST 1 Von [...] WAYNE CASEY Date: 2022-01-15 06:42 Normal [facility] A1C HEMOGLOBINon 12-18-2021 HbA1c (Bld) [Mass fraction] 6.2 % [employer] Other Glucose - FINGER STICKon Glucose [Mass/Vol] 120 mg/dL [employer] Other HbA1c (Bld) [Mass fraction]o n 12-18-2021 A1C HEMOGLOBIN [employer] Other XR CHEST 2 Von 12-08-2021 XR [...] by: HIGINIO FLANAGAN Date: 2021-12-08 16:07 Normal [facility] PTH INTACTon 12-01-2021 PTH, Intact 15 pg/mL Normal 15-65 [facility] Comment on above: Performed By: #### C MP, DOMDM #### [facility] [address] [place] [address] Dr. Mirza Sadler VIT D 25-OH LABCORPon 2021 Vitamin D, 25-Hydroxy 41.2 ng/mL Normal 30.0-100.0 [facility] Comment on above: Result Comment: [place] min D deficiency has been defined by the [place] [employer] and an Endocrine Society practice guideline as a level of serum 25-OH vitamin D less than 20 ng/mL (1,2). The Endocrine Society went on to further define vitamin D insufficiency as a level between 21 and 29 ng/mL (2). 1. IOM ([place] [employer]). 2010. Dietary reference intakes for calcium and D. [place]: The National Academies Press. 2. Noemy MF, Sonam [place], Jake HERMOSILLO, et al. Evaluation, treatment, and prevention of vitamin D deficiency: an Endocrine Society clinical practice guideline. JCEM. 2010; 96(7):1911-30. Performed By: #### P T, PTT #### [facility] [address] [place] [address] Dr. Mirza Sadler HEMOGRAM AND PLATELon 2021 Hematocrit (Bld) [Volume fraction] 39.9 % Critically low 42.0-54.0 [facility] Comment on above: Performed By: #### P T, PTT #### [facility] [address] [place] [address] Dr. Mirza Sadler Hemoglobin (Bld) [Mass/Vol] 13.1 g/dL Critically low 14.0-18.0 [facility] Comment on above: Performed By: #### P T, PTT #### [facility] [address] [place] [address] Dr. Mirza Sadler MCH (RBC) [Entitic mass] 29.5 pg Normal 25.9-34.0 [facility] Comment on above: Performed By: #### P T, PTT #### [facility] [address] [place] [address] Dr. Mirza Sadler MCHC (RBC) [Mass/Vol] 32.8 g/dL Normal 29.9-35.2 [facility] Comment on above: Performed By: #### P T, PTT #### [facility] [address] [address] [address] Mirza Sadler MCV (RBC) [Entitic vol] 89.9 fL Normal 80.0-94.0 [facility] Comment on above: Performed By: #### P T, PTT #### [facility] [address] [place] [address] Dr. Mirza Sadler PLT 182 103/ul Normal 150-450 [facility] Comment on above: Performed By: #### P T, PTT #### [facility] [address] [place] [address] Dr. Mirza Sadler RBC 4.44 106/ul Critically low 4.70-6.10 [facility] Comment on above: Performed By: #### P T, PTT #### [facility] [address] [place] [address] Dr. Mirza Sadler WBC 6.9 103/ul Normal 4.0-11.0 [facility] Comment on above: Performed By: #### P T, PTT #### [facility] [address] [place] [address] Dr. Mirza Sadler MAGNESIUMon 11-30-2021 Magnesium [Mass/Vol] 1.8 mg/dL Normal 1.8-2.4 [facility] Comment on above: Performed By: #### P T, PTT #### [facility] [address] [place] [address] Dr. Mirza Sadler RENAL FUNCTION PANELon 11-30 Albumin [Mass/Vol] 3.9 g/dL Normal 3.4-5.0 [facility] Comment on above: Performed By: #### P T, PTT #### [facility] [address] [place] [address] Dr. Mirza Sadler Calcium [Mass/Vol] 9.0 mg/dL Normal 8.5-10.1 [facility] [facility] Comment on above: Performed By: #### P T, PTT #### [facility] [address] [place] [address] Dr. Mirza Sadler Chloride [Moles/Vol] 107 mmol/L Normal 98-107 [facility] Comment on above: Performed By: #### P T, PTT #### [facility] [address] [address] [address] Mirza Sadler CO2 [Moles/Vol] 26.2 mmol/L Normal 21.0-32.0 [facility] Comment on above: Performed By: #### P T, PTT #### [facility] [address] [address] [address] Mirza Sadler Creatinine [Mass/Vol] 1.55 mg/dL Critically high 0.70-1.30 [facility] Comment on above: Performed By: #### P T, PTT #### [facility] [address] [address] [address] Mirza Sadler EGFR-AF SAUDI ARABIAN 54 mL/min/1.73m2 Critically low >=60 [facility] Comment on above: Performed By: #### P T, PTT #### [facility] [address] [address] [address] Mirza Sadler EGFR-NON AF SAUDI ARABIAN 45 mL/min/1.73m2 Critically low >=60 [facility] Comment on above: Performed By: #### P T, PTT #### [facility] [address] [place] [address] Dr. Mirza Sadler Glucose [Mass/Vol] 166 mg/dL Critically high 74-106 [facility] Comment on above: Performed By: #### P T, PTT #### [facility] [address] [address] [address] Mirza Sadler Phosphate [Mass/Vol] 3.7 mg/dL Normal 2.6-4.7 [facility] Comment on above: Performed By: #### P T, PTT #### [facility] [address] [place] [address] Dr. Mirza Sadler Potassium [Moles/Vol] 4.2 mmol/L Normal 3.5-5.1 [facility] Comment on above: Performed By: #### P T, PTT #### [facility] [address] [place] [address] Dr. Mirza Sadler Sodium [Moles/Vol] 142 mmol/L Normal 136-145 [facility] Comment on above: Performed By: #### P T, PTT #### [facility] [address] [place] [address] Dr. Mirza Sadler Urea nitrogen [Mass/Vol] 16.0 mg/dL Normal 7.0-18.0 [facility] Comment on above: Performed By: #### P T, PTT #### [facility] [address] [place] [address] Dr. Mirza Sadler UA RANDOM W/MICROSCOPICon BACTERIA NONE SEEN Normal NONE SEEN [facility] Comment on above: Performed By: #### B LDCX2 #### [facility] [address] [place] [address] Dr. Mirza Sadler Bilirubin Ql (U) Negative Normal NEGATIVE [facility] Comment on above: Performed By: #### B LDCX2 #### [facility] [address] [place] [address] Dr. Mirza Sadler CAST NONE SEEN Normal NONE SEEN [facility] Comment on above: Performed By: #### B LDCX2 #### [facility] [address] [place] [address] Dr. Mirza Sadler Clarity (U) CLEAR Normal CLEAR [facility] Comment on above: Performed By: #### B LDCX2 #### [facility] [address] [place] [address] Dr. Mirza Sadler Color (U) LT. YELLOW Normal YELLOW [facility] Comment on above: Performed By: #### B LDCX2 #### [facility] [address] [place] [address] Dr. Mirza Sadler Crystals LM Nom (Urine sed) NONE SEEN Normal NONE SEEN [facility] Comment on above: Performed By: #### B LDCX2 #### [facility] [address] [place] [address] Dr. Mirza Sadler Epithelial cells LM Ql (Urine sed) RARE Normal NONE SEEN /RARE [facility] Comment on above: Performed By: #### B LDCX2 #### [facility] [address] [place] [address] Dr. Mirza Sadler Glucose Ql (U) >1000 Abnormal NEGATIVE [facility] Comment on above: Performed By: #### B LDCX2 #### [facility] [address] [place] [address] Dr. Mirza Sadler Hemoglobin Ql (U) Negative Normal NEGATIVE [facility] Comment on above: Performed By: #### B LDCX2 #### [facility] [address] [place] [address] Dr. Mirza Sadler Ketones Ql (U) Negative Normal NEGATIVE [facility] Comment on above: Performed By: #### B LDCX2 #### [facility] [address] [place] [address] Dr. Mirza Sadler LEUKOCYTES Negative Normal NEGATIVE [facility] Comment on above: Performed By: #### B LDCX2 #### [facility] [address] [place] [address] Dr. Mirza Sadler MUCOUS NONE SEEN Normal NONE SEEN [facility] Comment on above: Performed By: #### B LDCX2 #### [facility] [address] [place] [address] Dr. Mirza Sadler Nitrite Ql (U) Negative Normal NEGATIVE [facility] Comment on above: Performed By: #### B LDCX2 #### [facility] [address] [place] [address] Dr. Mirza Sadler pH (U) 5.5 [pH] Normal 5-9 [facility] Comment on above: Performed By: #### B LDCX2 #### [facility] [address] [place] [address] Dr. Mirza Sadler RBC NONE SEEN Abnormal 0-2 [facility] Comment on above: Performed By: #### B LDCX2 #### [facility] [address] [place] [address] Dr. Mirza Sadler SPEC GRAVITY 1.015 Normal 1.005-<=1. 025 [facility] Comment on above: Performed By: #### B LDCX2 #### [facility] [address] [place] [address] Dr. Mirza Sadler UA PROTEIN Negative Normal NEGATIVE/ TRACE [facility] Comment on above: Performed By: #### B LDCX2 #### [facility] [address] [place] [address] Dr. Mirza Sadler Urobilinogen Qn (U) 0.2 {Luisito'U}/dL Normal 0.2 - 1. 0 [facility] Comment on above: Performed By: #### B LDCX2 #### [facility] [address] [place] [address] Dr. Mirza Sadler WBC NONE SEEN Normal NONE SEEN [facility] Comment on above: Performed By: #### B LDCX2 #### [facility] [address] [place] [address] Dr. Mirza Sadler URINE T PROTEIN CREAT RATIOo n 11-30-2021 Protein (U) [Mass/Vol] 22.4 mg/dL Critically high <=12.0 [facility] Comment on above: Performed By: #### U RTPCR #### [facility] [address] [place] [address] Dr. Mirza Sadler UR PROT CREAT RAT 0.31 Normal [facility] Comment on above: Performed By: #### U RTPCR #### [facility] [address] [place] [address] Dr. Mirza Sadler URINE CREAT 73.05 mg/dL Normal 20.00-300. 00 [facility] Comment on above: Performed By: #### U RTPCR #### [facility] [address] [place] [address] Dr. Mirza Sadler NM HEPATOBILIARY SCAN W [...] Date: 2021-11-24 11:55 Normal [facility] BNPon 10-27-2021 Natriuretic peptide B (Bld) [Mass/Vol] 574.0 pg/mL Normal <=900.0 [facility] Comment on above: Performed By: #### P T, PTT #### [facility] [address] [place] [address] Dr. Mirza Sadler CARDIAC PARUL ADMITon 022 CK [Catalytic activity/Vol] 70 U/L Normal 39-308 [facility] Comment on above: Performed By: #### P T, PTT #### [facility] [address] [place] [address] Dr. Mirza Sadler CK.MB [Mass/Vol] 1.10 ng/mL Normal <=3.60 [facility] Comment on above: Performed By: #### P T, PTT #### [facility] [address] [place] [address] Dr. Mriza Sadler HSTROP 22.3 pg/mL Normal 4.0-76.1 [facility] Comment on above: Result Comment: CUT- OFF POINTS HAVE BEEN ESTABLISHED BASED ON THE FOURTH UNIVERSAL DEFINITIONS OF MYOCARDIAL INFARCTION. THE UPPER REFERENCE LIMIT (URL) OF TROPONIN, DEFINED THE 99TH PERCENTILE OF cTnI DISTRIBUTION IN A REFERENCE POPULATION, HAS BEEN CONFIRMED THE DECISION THRESHOLD FOR [place] DIAGNOSIS. Performed By: #### P T, PTT #### [facility] [address] [place] [address] Dr. Mirza Sadler RACHEL 81 ng/mL Normal 16-96 [facility] Comment on above: Performed By: #### P T, PTT #### [facility] [address] [place] [address] Dr. Mirza Sadler CBC AUTO DIFFon 10-27-2021 BASO # 0.1 103/ul Normal 0.0-0.1 [facility] Comment on above: Performed By: #### E RUR #### [facility] [address] [place] [address] Dr. Mirza Sadler Basophils/100 WBC (Bld) 0.4 % Normal 0.2-2.0 [facility] Comment on above: Performed By: #### E RUR #### [facility] [address] [place] [address] Dr. Mirza Sadler EO # 0.1 103/ul Normal 0.0-0.7 [facility] Comment on above: Performed By: #### E RUR #### [facility] [address] [place] [address] Dr. Mirza Sadler Eosinophils/100 WBC (Bld) 0.4 % Critically low 0.9-7.0 [facility] Comment on above: Performed By: #### E RUR #### [facility] [address] [place] [address] Dr. Mirza Sadler Erythrocyte distribution width (RBC) [Ratio] 14.1 % Normal 11.0-15.0 [facility] Comment on above: Performed By: #### E RUR #### [facility] [address] [place] [address] Dr. Mirza Sadler Hematocrit (Bld) [Volume fraction] 41.0 % Critically low 42.0-54.0 [facility] Comment on above: Performed By: #### E RUR #### [facility] [address] [place] [address] Dr. Mirza Sadler Hemoglobin (Bld) [Mass/Vol] 14.1 g/dL Normal 14.0-18.0 [facility] Comment on above: Performed By: #### E RUR #### [facility] [address] [place] [address] Dr. Mirza Sadler IG # 0.05 10e3/ul Critically high 0.00-0.03 [facility] Comment on above: Performed By: #### E RUR #### [facility] [address] [place] [address] Dr. iMrza Sadler IG % 0.4 % Normal 0.0-0.5 [facility] Comment on above: Performed By: #### E RUR #### [facility] [address] [place] [address] Dr. Mirza Sadler LYMPH # 0.9 103/ul Critically low 1.2-3.8 [facility] Comment on above: Performed By: #### E RUR #### [facility] [address] [place] [address] Dr. Mirza Sadler Lymphocytes/100 WBC (Bld) 6.6 % Critically low 20.5-60.0 [facility] Comment on above: Performed By: #### E RUR #### [facility] [address] [place] [address] Dr. Mirza Sadler MANUAL DIFF REQ NO Normal [facility] Comment on above: Performed By: #### E RUR #### [facility] [address] [place] [address] Dr. Mirza Sadler MCH (RBC) [Entitic mass] 29.7 pg Normal 25.9-34.0 [facility] Comment on above: Performed By: #### E RUR #### [facility] [address] [place] [address] Dr. Mirza Sadler MCHC (RBC) [Mass/Vol] 34.4 g/dL Normal 29.9-35.2 [facility] Comment on above: Performed By: #### E RUR #### [facility] [address] [place] [address] Dr. Mirza Sadler MCV (RBC) [Entitic vol] 86.3 fL Normal 80.0-94.0 [facility] Comment on above: Performed By: #### E RUR #### [facility] [address] [place] [address] Dr. Mirza Sadler MONO # 0.4 103/ul Normal 0.3-0.8 [facility] Comment on above: Performed By: #### E RUR #### [facility] [address] [place] [address] Dr. Mirza Sadler Monocytes/100 WBC (Bld) 2.6 % Normal 1.7-12.0 [facility] Comment on above: Performed By: #### E RUR #### [facility] [address] [place] [address] Dr. Mirza Sadler NEUT # 12.2 103/ul Critically high 1.4-6.5 [facility] Comment on above: Performed By: #### E RUR #### [facility] [address] [place] [address] Dr. Mirza Sadler Neutrophils/100 WBC (Bld) 89.6 % Critically high 43.0-75.0 [facility] Comment on above: Performed By: #### E RUR #### [facility] [address] [place] [address] Dr. Mirza Sadler Platelet mean volume (Bld) [Entitic vol] 9.7 fL Normal 9.5-13.5 [facility] Comment on above: Performed By: #### E RUR #### [facility] [address] [place] [address] Dr. Mirza Sadler PLT 183 103/ul Normal 150-450 [facility] Comment on above: Performed By: #### E RUR #### [facility] [address] [place] [address] Dr. Mirza Sadler RBC 4.75 106/ul Normal 4.70-6.10 [facility] Comment on above: Performed By: #### E RUR #### [facility] [address] [place] [address] Dr. Mirza Sadler WBC 13.7 103/ul Critically high 4.0-11.0 [facility] Comment on above: Performed By: #### E RUR #### [facility] [address] [place] [address] Dr. Mirza Sadler CULTURE BLOODon 10-27-2021 Microscopic examination of blood, culture Culture Observations: NO GROWTH AT 5 DAYS. Normal [facility] Comment on above: Performed By: #### B LDCX2 #### [facility] [address] [place] [address] Dr. Mirza Sadler Performed By: #### H STROPN #### [facility] [address] [place] [address] Dr. Mirza Sadler [facility] SARS-CoV-2 (COVID-19) RNA RAMO+probe Ql (Unsp spec) Not detected Normal NOT DETECTED [facility] Comment on above: Result Comment: When diagnostic [...] for this test is supported by the [employer] and [employer] Service's declaration that [...] #### P T, PTT #### [facility] [address] [place] [address] Dr. Mirza Sadler ER URINE PROFILEon Bilirubin Ql (U) Negative Normal NEGATIVE [facility] Comment on above: Performed By: #### H STROPN #### [facility] [address] [place] [address] Dr. Mirza Sadler Clarity (U) CLEAR Normal CLEAR [facility] Comment on above: Performed By: #### H STROPN #### [facility] [address] [place] [address] Dr. Mirza Sadler Color (U) YELLOW Normal YELLOW [facility] Comment on above: Performed By: #### H STROPN #### [facility] [address] [place] [address] Dr. Mirza Sadler ERUAHD A micrscopic examina tion will be performed if indicated. Normal [facility] Comment on above: Performed By: #### H STROPN #### [facility] [address] [address] [address] Mirza Sadler Glucose Ql (U) >1000 Abnormal NEGATIVE [facility] Comment on above: Performed By: #### H STROPN #### [facility] [address] [address] [address] Mirza Sadler Hemoglobin Ql (U) Negative Normal NEGATIVE [facility] Comment on above: Performed By: #### H STROPN #### [facility] [address] [address] [address] Mirza Sadler Ketones Ql (U) TRACE Abnormal NEGATIVE [facility] Comment on above: Performed By: #### H STROPN #### [facility] [address] [place] [address] Dr. Mirza Sadler LEUKOCYTES Negative Normal NEGATIVE [facility] Comment on above: Performed By: #### H STROPN #### [facility] [address] [address] [address] Mirza Sadler Nitrite Ql (U) Negative Normal NEGATIVE [facility] Comment on above: Performed By: #### H STROPN #### [facility] [address] [address] [address] Mirza Sadler pH (U) 5.5 [pH] Normal 5-9 [facility] Comment on above: Performed By: #### H STROPN #### [facility] [address] [place] [address] Dr. Mirza Sadler SPEC GRAVITY 1.010 Normal 1.005-<=1. 025 [facility] Comment on above: Performed By: #### H STROPN #### [facility] [address] [address] [address] Mirza Sadler UA PROTEIN Negative Normal NEGATIVE/ TRACE [facility] Comment on above: Performed By: #### H STROPN #### [facility] [address] [address] [address] Mirza Sadler UR MICRO IND NOT INDICATED Normal [facility] Comment on above: Performed By: #### H STROPN #### [facility] [address] [place] [address] Dr. Mirza Sadler Urobilinogen Qn (U) 0.2 {Luisito'U}/dL Normal 0.2 - 1. 0 [facility] Comment on above: Performed By: #### H STROPN #### [facility] [address] [place] [address] Dr. Mirza Sadler INFLUENZA A AND B AGon 10-27 INFLUANEGH SEE BELOW Normal [facility] Comment on above: Result Comment: Nega tive for Flu A protein angiten. Infection due to Flu A cannot be ruled out. Flu A angiten in the sample may be below the detection limit of the test. Performed By: #### B SQUEAK [employer] REPAIRER #### [facility] [address] [place] [address] Dr. Mirza Sadler INFLUBNEGH SEE BELOW Normal [facility] Comment on above: Result Comment: Nega tive for Flu B protein antigen. Infection due to Flu B cannot be ruled out. Flu B antigen in the sample may be below the detection limit of the test. Performed By: #### B SQUE[employer] REPAIRER #### [facility] [address] [place] [address] Dr. Mirza Sadler INFLUENZA A AG Negative Normal NEGATIVE SEE COMMENT [facility] Comment on above: Performed By: #### B SQUEAK [employer] REPAIRER #### [facility] [address] [place] [address] Dr. Mirza Sadler INFLUENZA B AG Negative Normal NEGATIVE SEE COMMENT [facility] Comment on above: Performed By: #### B SQUE[employer] REPAIRER #### [facility] [address] [place] [address] Dr. Mirza Sadler INTERNAL CONTROLS Within Normal Limits Normal Wi thin Normal Limits [facility] Comment on above: Performed By: #### B [employer]QUE[employer] REPAIRER #### [facility] [address] [place] [address] Dr. Mirza Sadler LACTATE/LACTIC ACIDon 2021 Lactate [Moles/Vol] 1.8 mmol/L Normal 0.4-1.9 [facility] Comment on above: Performed By: #### C MP, DOMDM #### [facility] [address] [place] [address] Dr. Mirza Sadler LIPASEon 10-27-2021 Lipase [Catalytic activity/Vol] 87.0 U/L Normal 73.0-393.0 [facility] Comment on above: Performed By: #### P T, PTT #### [facility] [address] [place] [address] Dr. Mirza Sadler PH VENOUS BLOODon 10-27-2021 PCO2 VENOUS 37.6 mmHg Critically low 40.0-52.0 [facility] Comment on above: Performed By: #### P T, PTT #### [facility] [address] [place] [address] Dr. Mirza Sadler pH VENOUS 7.422 Normal 7.330-7.43 0 [facility] Comment on above: Performed By: #### P T, PTT #### [facility] [address] [place] [address] Dr. Mirza Sadler PROF 14(COMP METB)on 022 Albumin [Mass/Vol] 4.2 g/dL Normal 3.4-5.0 [facility] Comment on above: Performed By: #### P T, PTT #### [facility] [address] [place] [address] Dr. Mirza Sadler Albumin/Globulin [Mass ratio] 1.3 {ratio} Normal [facility] Comment on above: Performed By: #### P T, PTT #### [facility] [address] [place] [address] Dr. Mirza Sadler ALP [Catalytic activity/Vol] 121 U/L Critically high 46-116 [facility] Comment on above: Performed By: #### P T, PTT #### [facility] [address] [place] [address] Dr. Mirza Sadler ALT [Catalytic activity/Vol] 22 U/L Normal 16-63 [facility] Comment on above: Performed By: #### P T, PTT #### [facility] [address] [place] [address] Dr. Mirza Sadler Anion gap [Moles/Vol] 16.0 mmol/L Normal [facility] Comment on above: Performed By: #### P T, PTT #### [facility] [address] [address] [address] Mirza Sadler AST [Catalytic activity/Vol] 18 U/L Normal 15-37 [facility] Comment on above: Performed By: #### P T, PTT #### [facility] [address] [address] [address] Mirza Sadler Bilirubin [Mass/Vol] 1.3 mg/dL Critically high 0.2-1.0 [facility] Comment on above: Performed By: #### P T, PTT #### [facility] [address] [address] [address] Mirza Sadler Calcium [Mass/Vol] 8.9 mg/dL Normal 8.5-10.1 [facility] Comment on above: Performed By: #### P T, PTT #### [facility] [address] [address] [address] Mirza Sadler Chloride [Moles/Vol] 105 mmol/L Normal 98-107 [facility] Comment on above: Performed By: #### P T, PTT #### [facility] [address] [address] [address] Mirza Sadler CO2 [Moles/Vol] 23.7 mmol/L Normal 21.0-32.0 [facility] Comment on above: Performed By: #### P T, PTT #### [facility] [address] [address] [address] Mirza Sadler Creatinine [Mass/Vol] 1.79 mg/dL Critically high 0.70-1.30 [facility] Comment on above: Performed By: #### P T, PTT #### [facility] [address] [address] [address] Mirza Sadler EGFR-AF SAUDI ARABIAN 46 mL/min/1.73m2 Critically low >=60 [facility] Comment on above: Performed By: #### P T, PTT #### [facility] [address] [address] [address] Mirza Sadler EGFR-NON AF SAUDI ARABIAN 38 mL/min/1.73m2 Critically low >=60 [facility] Comment on above: Performed By: #### P T, PTT #### [facility] [address] [address] [address] Mirza Sadler Globulin (S) [Mass/Vol] 3.3 g/dL Normal [facility] Comment on above: Performed By: #### P T, PTT #### [facility] [address] [address] [address] Mirza Sadler Glucose [Mass/Vol] 195 mg/dL Critically high 74-106 [facility] Comment on above: Performed By: #### P T, PTT #### [facility] [address] [place] [address] Dr. Mirza Sadler Potassium [Moles/Vol] 3.7 mmol/L Normal 3.5-5.1 [facility] Comment on above: Performed By: #### P T, PTT #### [facility] [address] [place] [address] Dr. Mirza Sadler Protein [Mass/Vol] 7.5 g/dL Normal 6.4-8.2 [facility] Comment on above: Performed By: #### P T, PTT #### [facility] [address] [place] [address] Dr. Mirza Sadler Sodium [Moles/Vol] 141 mmol/L Normal 136-145 [facility] Comment on above: Performed By: #### P T, PTT #### [facility] [address] [place] [address] Dr. Mirza Sadler Urea nitrogen [Mass/Vol] 25.0 mg/dL Critically high 7.0-18.0 [facility] Comment on above: Performed By: #### P T, PTT #### [facility] [address] [place] [address] Dr. Mirza Sadler Urea nitrogen/Creatinine [Mass ratio] 14.0 mg/mg Normal [facility] Comment on above: Performed By: #### P T, PTT #### [facility] [address] [place] [address] Dr. Mirza Sadler PROTIMEon 10-27-2021 INR Coag (PPP) [Relative time] 1.07 {INR} Normal [facility] Comment on above: Performed By: #### P T, PTT #### [facility] [address] [place] [address] Dr. iMrza Sadler INR GUIDELINES SEE BELOW Normal [facility] Comment on above: Result Comment: RIVKA RED INR: 2.0 - 3.0 CONDITIONS NOT LISTED BELOW 2.5 - 3.5 FOR PROSTHETIC HEART VALVE REPLACEMENT 2.5 - 3.5 RECURRENT THROMBOSIS Performed By: #### P T, PTT #### [facility] [address] [address] [address] Mirza Sadler PT Coag (PPP) [Time] 11.5 s Normal 9.0-11.6 [facility] Comment on above: Performed By: #### P T, PTT #### [facility] [address] [place] [address] Dr. Mriza Sadler PTTon 10-27-2021 aPTT Coag (Bld) [Time] 25.1 s Normal 22.3-36.2 [facility] Comment on above: Performed By: #### P T, PTT #### [facility] [address] [place] [address] Dr. Mirza Sadler XR CHEST 1 Von [...] by: GAGAN CAREY Date: 2021-10-27 10:21 Normal [facility] -- LANI LIZAMA ([id number]) 1950 M Date Time Provider Department 10/20/21 ABDON WALKER During your visit today, we recorded the following information about you: Veelilly Day 10/20/2021 9:43 AM Signed New CBC order. Vee Martinezeder Allergies As of Date: 10/20/2021 Noted Allergy Reaction Nkda [Other] 07/28/2018 16 - Unknown Comments: Received name: Nkda Date Reviewed: 10/20/2021 Reviewed by: Vickie Barrera PA-C - Fully Assessed Reason for Visit: Lab Orders [1688] Primary Visit Diagnosis:Monoclonal gammopathy [D47.2] Order(s):CBC + DIFF [SQCBCDIF] Order #: [id number] FUTURE Prescriptions as of 10/24/2021 - famotidine [...] Status:Closed by VEE DAY on 10/24/21 Normal [facility] CT ABD/PELVIS WO CONon 10-03 [...] HIGINIO FLANAGAN Date: 2021-10-03 16:29 Normal [facility] PROF 14(COMP METB)on 022 Albumin [Mass/Vol] 4.1 g/dL Normal 3.4-5.0 [facility] Comment on above: Performed By: #### P T, PTT #### [facility] [address] [place] [address] Dr. Mirza Sadler Albumin/Globulin [Mass ratio] 1.2 {ratio} Normal [facility] Comment on above: Performed By: #### P T, PTT #### [facility] [address] [place] [address] Dr. Mirza Sadler ALP [Catalytic activity/Vol] 132 U/L Critically high 46-116 [facility] Comment on above: Performed By: #### P T, PTT #### [facility] [address] [place] [address] Dr. Mirza Sadler ALT [Catalytic activity/Vol] 30 U/L Normal 16-63 [facility] Comment on above: Performed By: #### P T, PTT #### [facility] [address] [place] [address] Dr. Mirza Sadler Anion gap [Moles/Vol] 10.7 mmol/L Normal [facility] Comment on above: Performed By: #### P T, PTT #### [facility] [address] [place] [address] Dr. Mirza Sadler AST [Catalytic activity/Vol] 21 U/L Normal 15-37 [facility] Comment on above: Performed By: #### P T, PTT #### [facility] [address] [place] [address] Dr. Mirza Sadler Bilirubin [Mass/Vol] 0.7 mg/dL Normal 0.2-1.0 [facility] Comment on above: Performed By: #### P T, PTT #### [facility] [address] [address] [address] Mirza Sadler Calcium [Mass/Vol] 9.0 mg/dL Normal 8.5-10.1 [facility] Comment on above: Performed By: #### P T, PTT #### [facility] [address] [address] [address] Mirza Sadler Chloride [Moles/Vol] 106 mmol/L Normal 98-107 [facility] Comment on above: Performed By: #### P T, PTT #### [facility] [address] [address] [address] Mirza Sadler CO2 [Moles/Vol] 27.5 mmol/L Normal 21.0-32.0 [facility] Comment on above: Performed By: #### P T, PTT #### [facility] [address] [place] [address] Dr. Mirza Sadler Creatinine [Mass/Vol] 1.77 mg/dL Critically high 0.70-1.30 [facility] Comment on above: Performed By: #### P T, PTT #### [facility] [address] [address] [address] Mirza Sadler EGFR-AF SAUDI ARABIAN 46 mL/min/1.73m2 Critically low >=60 [facility] Comment on above: Performed By: #### P T, PTT #### [facility] [address] [place] [address] Dr. Mirza Sadler EGFR-NON AF SAUDI ARABIAN 38 mL/min/1.73m2 Critically low >=60 [facility] Comment on above: Performed By: #### P T, PTT #### [facility] [address] [address] [address] Mirza Sadler Globulin (S) [Mass/Vol] 3.5 g/dL Normal [facility] Comment on above: Performed By: #### P T, PTT #### [facility] [address] [place] [address] Dr. Mirza Sadler Glucose [Mass/Vol] 135 mg/dL Critically high 74-106 [facility] Comment on above: Performed By: #### P T, PTT #### [facility] [address] [address] [address] Mirza Sadler Potassium [Moles/Vol] 4.2 mmol/L Normal 3.5-5.1 [facility] Comment on above: Performed By: #### P T, PTT #### [facility] [address] [address] [address] Mirza Sadler Protein [Mass/Vol] 7.6 g/dL Normal 6.4-8.2 [facility] Comment on above: Performed By: #### P T, PTT #### [facility] [address] [address] [address] Mirza Sadler Sodium [Moles/Vol] 140 mmol/L Normal 136-145 [facility] Comment on above: Performed By: #### P T, PTT #### [facility] [address] [address] [address] Mirza Sadler Urea nitrogen [Mass/Vol] 17.0 mg/dL Normal 7.0-18.0 [facility] Comment on above: Performed By: #### P T, PTT #### [facility] [address] [address] [address] Mirza Sadler Urea nitrogen/Creatinine [Mass ratio] 9.6 mg/mg Normal [facility] Comment on above: Performed By: #### P T, PTT #### [facility] [address] [place] [address] Dr. Mirza Sadler US SINGLE QUAD RT [facility] US SINGLE QUAD RT UPPER EXAMINATION: US [...] HIGINIO FLANAGAN Date: 2021-08-27 08:40 Normal [facility] A1C HEMOGLOBINon 07-17-2021 HbA1c (Bld) [Mass fraction] 6.9 % [employer] Other Glucose - FINGER STICKon Glucose [Mass/Vol] 180 mg/dL [employer] Other HbA1c (Bld) [Mass fraction]o n 07-17-2021 A1C HEMOGLOBIN [employer] Other A1C with Estimated Average G luon 04-10-2021 HbA1c (Bld) [Mass fraction] 6.4 % [employer] Other HbA1c (Bld) [Mass fraction] 243 % [employer] Other Glucoseon 04-10-2021 Glucose [Mass/Vol] 243 mg/dL [employer] Other A1C HEMOGLOBINon 01-03-2021 HbA1c (Bld) [Mass fraction] 6.6 % [employer] Other Glucose - FINGER STICKon Glucose [Mass/Vol] 142 mg/dL [employer] Other HbA1c (Bld) [Mass fraction]o n 01-03-2021 A1C HEMOGLOBIN [employer] Other CNPNon 10-27-2020 [facility] Telephone ([employer]) -- LANI LIZAMA ([id number]) 1950 Date Time Provider Department 10/27/20 ANGELINE [...] Status:Closed by ANGELINE WARE on 10/28/20 Normal [facility] Cardiovascular Lab Reporton 10-16-2018 Cardiovascular Lab Report [facility] Patient Name: Lani Lizama [facility] MR #: [id number] Physician: Pinky Bishop Department of M.D. Medicine Service Date: 10/15/2018 Division of Birthdate: 1950 Cardiology Room #: [id number] Adult Cardiovascular Services [address] [place] [address] Cardiovascular Laboratory Report FINAL IMPRESSIONS: 1. Severe three-vessel zuni coronary artery disease. 2. Jeuy-mh-uxvb bypass grafts patent. 3. Mild in-stent restenosis [...] 4. Follow up with me in the [facility] in the next 4-6 weeks. [...] guidance and using a micropuncture kit. A 6-Serbian Glidesheath was inserted without difficulty. Coronary angiography [...] of the vessel. There is evidence of pymn-wf-lclym collaterals. The distal vessel is supplied via [...] is a long stented segment in the syhtsgpf-wj-mqphir portion of the vessel with 30% in-stent restenosis. The vessel distal to the touchdown shows caliber reduction and no discrete stenosis. There is diffuse disease in the branches. Saphenous vein graft to the posterior descending artery. This is widely patent. It shows an extensive stented segment from dqfjbvrk-jo-oapcutmbhx of the vessel. There is a 40%-50% [...] Bishop M.D. Date Trans: 10/16/2018 05:01 Brandie [id number] cc: Harley Crespo D.O. [address] [place] [id number] Normal [facility] BASIC METABOLIC PANELon 09-29 Calcium [Mass/Vol] 8.9 mg/dL Normal 8.6-10.3 [facility] Comment on above: Order Comment: No: D o not add to previous draw Performed By: #### 1 007, [id number] #### [facility] [address] [place] [address], [place] Chloride [Moles/Vol] 110 mmol/L High 98-107 [facility] Comment on above: Order Comment: No: D o not add to previous draw Performed By: #### 1 0, 85538 #### [facility] [address] [place] [address], [place] CO2 [Moles/Vol] 26 mmol/L Normal 21-31 [facility] Comment on above: Order Comment: No: D o not add to previous draw Performed By: #### 1 69, 48343 #### [facility] [address] [place] [address], [place] Creatinine [Mass/Vol] 1.52 mg/dL High 0.70-1.30 [facility] Comment on above: Order Comment: No: D o not add to previous draw Performed By: #### 1 69, 55276 #### [facility] [address] [place] [address], [place] GFR/1.73 sq M predicted among blacks MDRD (S/P/Bld) [Vol rate/Area] 56 ml/min/1.73sq m Abnormal >60 [facility] Comment on above: Order Comment: No: D o not add to previous draw Performed By: #### 1 69, 41396 #### [facility] [address] [place] [address], [place] GFR/1.73 sq M predicted among non-blacks MDRD (S/P/Bld) [Vol rate/Area] 46 ml/min/1.73sq m Abnormal >60 [facility] Comment on above: Order Comment: No: D o not add to previous draw Performed By: #### 1 69, 79707 #### [facility] [address] [place] [address], [place] Glucose [Mass/Vol] 89 mg/dL Normal 70-100 [facility] Comment on above: Order Comment: No: D o not add to previous draw Performed By: #### 1 69, 10582 #### [facility] [address] [place] [address], [place] Potassium [Moles/Vol] 3.9 mmol/L Normal 3.5-5.1 [facility] Comment on above: Order Comment: No: D o not add to previous draw Performed By: #### 1 69, 49239 #### [facility] [address] [facility] Sodium [Moles/Vol] 141 mmol/L Normal 136-145 [facility] Comment on above: Order Comment: No: D o not add to previous draw Performed By: #### 1 69, 51376 #### [facility] [address] [facility]. [address] Urea nitrogen [Mass/Vol] 19 mg/dL Normal 7-25 [facility] Comment on above: Order Comment: No: D o not add to previous draw Performed By: #### 1 69, 72049 #### [facility] [address] CBC W/DIFFon 10-15-2018 ABS BASOPHILS 0.1 10*3/uL Normal 0.0-0.2 [facility] Comment on above: Order Comment: No: D o not add to previous draw Performed By: #### 5 0103 #### [facility] [address] ABS IMM GRANS 0.0 10*3/uL Normal 0.0-0.2 [facility] Comment on above: Order Comment: No: D o not add to previous draw Performed By: #### 5 0103 #### [facility] [address] [facility]. [address] ABS NEUTROPHILS 3.5 10*3/uL Normal 1.6-7.6 [facility] Comment on above: Order Comment: No: D o not add to previous draw Performed By: #### 5 0103 #### [facility] [address] [place] [address], [facility] Basophils/100 WBC (Bld) 0.8 % Normal 0.0-1.0 [facility] Comment on above: Order Comment: No: D o not add to previous draw Performed By: #### 5 0103 #### [facility] [address] [place] [address], [facility] Eosinophils (Bld) [#/Vol] 0.3 10*3/uL Normal 0.0-0.5 [facility] Comment on above: Order Comment: No: D o not add to previous draw Performed By: #### 5 0103 #### [facility] [address] [place] [address], [facility] Eosinophils/100 WBC (Bld) 3.9 % Normal 0.0-6.0 [facility] Comment on above: Order Comment: No: D o not add to previous draw Performed By: #### 5 0103 #### [facility] [address] Erythrocyte distribution width (RBC) [Ratio] 13.5 % Normal 11.5-15.0 [facility] Comment on above: Order Comment: No: D o not add to previous draw Performed By: #### 5 0103 #### [facility] [address] Hematocrit (Bld) [Volume fraction] 39.7 % Normal 39.0-50.0 [facility] Comment on above: Order Comment: No: D o not add to previous draw Performed By: #### 5 0103 #### [facility] [address] [place] [address], [facility] Hemoglobin (Bld) [Mass/Vol] 13.0 g/dL Normal 13.0-17.0 [facility] Comment on above: Order Comment: No: D o not add to previous draw Performed By: #### 5 0103 #### [facility] [address] [place] [address], [facility] IMMATURE GRANS 0.3 % Normal 0.0-1.0 [facility] Comment on above: Order Comment: No: D o not add to previous draw Performed By: #### 5 0103 #### [facility] [address] [facility] [place] [address], [facility] Lymphocytes (Bld) [#/Vol] 1.9 10*3/uL Normal 1.2-4.0 [facility] Comment on above: Order Comment: No: D o not add to previous draw Performed By: #### 5 0103 #### [facility] [address] [facility] [place] [address], [facility] Lymphocytes/100 WBC (Bld) 30.1 % Normal 20.0-45.0 [facility] Comment on above: Order Comment: No: D o not add to previous draw Performed By: #### 5 0103 #### [facility] [address] [place] [address], [facility] MCH (RBC) [Entitic mass] 30.0 pg Normal 27.0-33.0 [facility] Comment on above: Order Comment: No: D o not add to previous draw Performed By: #### 5 0103 #### [facility] [address] [place] [address], [facility] MCHC (RBC) [Mass/Vol] 32.7 g/dL Normal 32.0-35.0 [facility] Comment on above: Order Comment: No: D o not add to previous draw Performed By: #### 5 0103 #### [facility] [address] [place] [address], [facility] MCV (RBC) [Entitic vol] 91.5 fL Normal 82.0-98.0 [facility] Comment on above: Order Comment: No: D o not add to previous draw Performed By: #### 5 0103 #### [facility] [address] [place] [address], [facility] Monocytes (Bld) [#/Vol] 0.7 10*3/uL Normal 0.1-1.0 [facility] Comment on above: Order Comment: No: D o not add to previous draw Performed By: #### 5 0103 #### [facility] [address] [place] [address], [facility] MONOS 10.7 % Normal 5.0-12.0 [facility] Comment on above: Order Comment: No: D o not add to previous draw Performed By: #### 5 0103 #### [facility] [address] [place] [address], [facility] Neutrophils/100 WBC (Bld) 54.2 % Normal 40.0-72.0 [facility] Comment on above: Order Comment: No: D o not add to previous draw Performed By: #### 5 0103 #### [facility] [address] [place] [id number], [facility] Nucleated RBC/100 WBC (Bld) [Ratio] 0 % Normal 0-0 [facility] Comment on above: Order Comment: No: D o not add to previous draw Performed By: #### 5 0103 #### [facility] [address] [facility] [place] [address], [facility] PLAT CNT 164 10*3/uL Normal 150-400 [facility] Comment on above: Order Comment: No: D o not add to previous draw Performed By: #### 5 0103 #### [facility] [address] [place] [address], [facility] RBC (Bld) [#/Vol] 4.34 10*6/uL Normal 4.20-5.70 [facility] Comment on above: Order Comment: No: D o not add to previous draw Performed By: #### 5 0103 #### [facility] [address] [place] [address], [place] WBC (Bld) [#/Vol] 6.38 10*3/uL Normal 4.00-10.60 [facility] Comment on above: Order Comment: No: D o not add to previous draw Performed By: #### 5 0103 #### [facility] [address] [place] [address], [place] MAGNESIUM BLOODon 10-15-2018 Magnesium [Mass/Vol] 2.0 mg/dL Normal 1.9-2.7 [facility] Comment on above: Order Comment: No: D o not add to previous draw Performed By: #### 1 0070, 29533 #### [facility] [address] [place] [address], [facility] PROTHROMBIN TIMEon 9 INR Coag (PPP) [Relative time] 1.11 {INR} Normal 0.91-1.16 [facility] Comment on above: Order Comment: No: [...] 1995;108:231S-246S. Performed By: #### 5 6101 #### [facility] [address] [place] [address], [facility] PT Coag (PPP) [Time] 14.3 s Normal 12.3-14.8 [facility] Comment on above: Order Comment: No: D o not add to previous draw Result Comment: ALL RESULTS MUST BE INTERPRETED WITH RESPECT TO BLOOD DRAWING ARTIFACT OR DILUTION ERROR OF ANTICOAGULANT AT THE TIME OF SAMPLING. Performed By: #### 5 6101 #### [facility] [address] [place] [address], [facility] POC GLUCOSE LABon 10-14-2018 Glucose [Mass/Vol] 180 mg/dL High 70-100 [facility] Comment on above: Performed By: #### 8 5499 #### [facility] [address] [place], [place] [id number] [place] [address] Cardiovascular Lab Reporton 02-25-2018 Cardiovascular Lab Report [facility] Patient Name: Lani Lizama [facility] MR #: [id number] Physician: Pinky Bishop Department of M.D. Medicine Service Date: 02/24/2018 Division of Birthdate: 1950 Cardiology Room #: [id number] Adult Cardiovascular Services [facility] [address] [facility] [place] [address] Cardiovascular Laboratory Report FINAL IMPRESSIONS: 1. 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 2. Severe 3-vessel zuni coronary artery disease. 3. 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 4. Yzvpdftt-br-rmgoqw systemic hypertension. RECOMMENDATIONS: 1. Aspirin 81 mg lifelong. 2. Plavix 75 mg daily for a minimum of 6 months, preferably mcfp. 3. Aggressive cardiovascular risk factor modification. 4. Optimization of medical management; high intensity statin therapy as tolerated, we will switch his Toprol-XL to Coreg 25 mg p.o. b.i.d., and angiotensin-converting enzyme inhibitor. 5. Follow up with me in the [facility] in the next 2-3 weeks. 6. Follow up with Dr. Crespo as scheduled. PROCEDURES: Limited femoral angiography, bilateral selective coronary angiography, saphenous vein graft angiography, angiography of the left internal mammary artery graft, limited angiography of the left subclavian, percutaneous balloon angioplasty, and Synergy drug-eluting stent placement to the saphenous vein graft to the obtuse marginal, placement of a 6-Serbian MYNXGRIP closure device. METHODS: After risks, benefits, and alternatives were explained, written informed consent was obtained. The patient was prepped and draped in usual sterile fashion over both groins. Using 1% lidocaine solution, local infiltration anesthesia was achieved over the right groin. Using a micropuncture kit, access of the right common femoral artery was obtained. A 6-Serbian 11 cm sheath was exchanged then without [...] to proceed with an interventional procedure. A 6-Serbian JR4 guide catheter was advanced in and [...] the procedure. All catheters were removed. A 6-Serbian MYNXGRIP closure device was deployed per protocol [...] is a 30% touchdown stenosis of the zuni vessel. There is evidence of nahk-pz-irvry collaterals supplying the distal right coronary artery. Limited femoral angiography, this shows mild plaque and anatomy suitable for closure device. INDICATIONS: Unstable angina. Electronically Signed by: Pinky Bishop M.D. 03/06/2018 12:15 P Pinky Bishop M.D. Date Dict: 02/24/2018/01:39 P/Pinky Bishop M.D. Date Trans: 02/25/2018 02:12 Brandie [id number] cc: Harley Crespo D.O. [address] [place] [id number] [facility] POC GLUCOSE LABon 02-25-2018 Glucose [Mass/Vol] 150 mg/dL High 70-100 [facility] Comment on above: Performed By: #### 8 5499 #### [facility] [address] [place] [address], [facility] POC GLUCOSE LABon 02-24-2018 Glucose [Mass/Vol] 192 mg/dL High 70-100 [facility] Comment on above: Performed By: #### 8 5499 #### [facility] [address] [place] [address], [facility] Glucose [Mass/Vol] 186 mg/dL High 70-100 [facility] Comment on above: Performed By: #### 8 5499 #### [facility] [address] [facility] [place] [place] [address], [facility] Vital Signs Date Time Vital Sign Value Performing Clinician Facility 12-03-2024 08:35-0400 Body height 170.2 cm Kenneth Tavera DPM Work Phone: [facility] 12-03-2024 08:35-0400 Body mass index (BMI) [Ratio] 26.78 kg/m2 eKnneth Tavera DPM Work Phone: [facility] 12-03-2024 08:35-0400 Body weight 77.56 kg Kenneth Tavera DPM Work Phone: [facility] 12-03-2024 08:35-0400 Respiratory rate 18 /min Kenneth Tavera DPM Work Phone: [facility] 12-01-2024 09:12-0400 Body height 170.18 cm Harley Ball DO Work Phone: [facility] 12-01-2024 09:12040 Body mass index (BMI) [Ratio] 27.1 kg/m2 Harley Ball DO Work Phone: [facility] 12-01-2024 09:12040 Body weight 78.58 kg Harley Ball DO Work Phone: [facility] 12-01-2024 09:12-0400 Diastolic blood pressure 70 mm[Hg] Harley Ball DO Work Phone: [facility] 12-01-2024 09:12-0400 Heart rate 84 /min Harley Ball DO Work Phone: [facility] 12-01-2024 09:12-0400 Respiratory rate 12 /min Harley Ball DO Work Phone: [facility] 12-01-2024 09:12-0400 Systolic blood pressure 115 mm[Hg] Harley Ball DO Work Phone: [facility] 11-10-2024 09:48-0400 Body height 170.18 cm Harley Ball DO Work Phone: [facility] 11-10-2024 09:48-0400 Body mass index (BMI) [Ratio] 28 kg/m2 Harley Ball DO Work Phone: [facility] 11-10-2024 09:48-0400 Body weight 81.3 kg Harley Ball DO Work Phone: [facility] 11-10-2024 09:48-0400 Diastolic blood pressure 64 mm[Hg] Harley Ball DO Work Phone: [facility] 11-10-2024 09:48-0400 Heart rate 78 /min Harley Ball DO Work Phone: [facility] 11-10-2024 09:48-0400 Respiratory rate 18 /min Harley Ball DO Work Phone: [facility] 11-10-2024 09:48-0400 SaO2% (BldA) [Mass fraction] 97 % Harley Ball DO Work Phone: [facility] 11-10-2024 09:48-0400 Systolic blood pressure 122 mm[Hg] Harley Ball DO Work Phone: [facility] 10-27-2024 11:44-0400 Body height 170.18 cm Harley Ball DO Work Phone: [facility] 10-27-2024 11:44-0400 Body mass index (BMI) [Ratio] 27.9 kg/m2 Harley Ball DO Work Phone: [facility] 10-27-2024 11:44-0400 Body weight 80.9 kg Harley Ball DO Work Phone: [facility] 10-27-2024 11:44-0400 Diastolic blood pressure 70 mm[Hg] Harley Ball DO Work Phone: [facility] 10-27-2024 11:44-0400 Heart rate 80 /min Harley Ball DO Work Phone: [facility] 10-27-2024 11:44-0400 Respiratory rate 12 /min Harley Ball DO Work Phone: [facility] 10-27-2024 11:44-0400 SaO2% (BldA) [Mass fraction] 97 % Harley Ball DO Work Phone: [facility] 10-27-2024 11:44-0400 Systolic blood pressure 116 mm[Hg] Harley Ball DO Work Phone: [facility] 09-24-2024 08:32-0400 Body height 170.2 cm Kenneth Tavera DPM Work Phone: [facility] 09-24-2024 08:32-0400 Body mass index (BMI) [Ratio] 26.78 kg/m2 Kenneht Tavera DPM Work Phone: [facility] 09-24-2024 08:32-0400 Body weight 77.56 kg Kenneth Tavera DPM Work Phone: [facility] 09-24-2024 08:32-0400 Respiratory rate 18 /min Kenneth Tavera DPM Work Phone: [facility] 08-25-2024 11:33-0400 Body height 170.18 cm [facility] 08-25-2024 11:33-0400 Body mass index (BMI) [Ratio] 26.9 kg/m2 [facility] 08-25-2024 11:33-0400 Body weight 77.79 kg [facility] 08-25-2024 11:33-0400 Diastolic blood pressure 73 mm[Hg] [facility] 08-25-2024 11:33-0400 Heart rate 77 /min [facility] 08-25-2024 11:33-0400 Respiratory rate 12 /min [facility] 08-25-2024 11:33-0400 SaO2% (BldA) [Mass fraction] 97 % [facility] 08-25-2024 11:33-0400 Systolic blood pressure 126 mm[Hg] [facility] 08-03-2024 09:28-0400 Body height 170.18 cm Harley Ball DO Work Phone: [facility] 08-03-2024 09:28-0400 Body mass index (BMI) [Ratio] 31.8 kg/m2 Harley Ball DO Work Phone: [facility] 08-03-2024 09:28-0400 Body weight 92.4 kg Harley Ball DO Work Phone: [facility] 08-03-2024 09:28-0400 Diastolic blood pressure 83 mm[Hg] Harley Ball DO Work Phone: [facility] 08-03-2024 09:28-0400 Heart rate 77 /min Harley Ball DO Work Phone: [facility] 08-03-2024 09:28-0400 Respiratory rate 18 /min Harley Ball DO Work Phone: [facility] 08-03-2024 09:28-0400 SaO2% (BldA) [Mass fraction] 99 % Harley Ball DO Work Phone: [facility] 08-03-2024 09:28-0400 Systolic blood pressure 143 mm[Hg] Harley Ball DO Work Phone: [facility] 07-27-2024 11:29-0400 Diastolic blood pressure 80 mm[Hg] Harley Ball DO Work Phone: [facility] 07-27-2024 11:29-0400 Heart rate 74 /min Harley Ball DO Work Phone: [facility] 07-27-2024 11:29-0400 Systolic blood pressure 143 mm[Hg] Harley Ball DO Work Phone: [facility] 07-27-2024 11:23-0400 Body height 170.18 cm Harley Ball DO Work Phone: [facility] 07-27-2024 11:23-0400 Body mass index (BMI) [Ratio] 28.8 kg/m2 Harley Ball DO Work Phone: [facility] 07-27-2024 11:23-0400 Body weight 83.57 kg Harley Ball DO Work Phone: [facility] 07-27-2024 11:23-0400 Respiratory rate 12 /min Harley Ball DO Work Phone: [facility] 07-27-2024 11:23-0400 SaO2% (BldA) [Mass fraction] 100 % Harley Ball DO Work Phone: [facility] 07-14-2024 09:43-0400 Body height 170.18 cm Harley Ball DO Work Phone: [facility] 07-14-2024 09:43-0400 Body mass index (BMI) [Ratio] 28.1 kg/m2 Harley Ball DO Work Phone: [facility] 07-14-2024 09:43-0400 Body weight 81.64 kg Harley Ball DO Work Phone: [facility] 07-14-2024 09:43-0400 Diastolic blood pressure 83 mm[Hg] Harley Ball DO Work Phone: [facility] 07-14-2024 09:43-0400 Heart rate 74 /min Harley Ball DO Work Phone: [facility] 07-14-2024 09:43-0400 Respiratory rate 16 /min Harley Ball DO Work Phone: [facility] 07-14-2024 09:43-0400 SaO2% (BldA) [Mass fraction] 99 % Harlye Ball DO Work Phone: [facility] 07-14-2024 09:43-0400 Systolic blood pressure 141 mm[Hg] Harley Ball DO Work Phone: [facility] 04-30-2024 09:42-0500 Body height 170.18 cm [facility] 04-30-2024 09:42-0500 Body mass index (BMI) [Ratio] 27.9 kg/m2 [facility] 04-30-2024 09:42-0500 Body weight 80.96 kg [facility] 04-30-2024 09:42-0500 Diastolic blood pressure 80 mm[Hg] [facility] 04-30-2024 09:42-0500 Heart rate 81 /min [facility] 04-30-2024 09:42-0500 Respiratory rate 18 /min [facility] 04-30-2024 09:42-0500 SaO2% (BldA) [Mass fraction] 98 % [facility] 04-30-2024 09:42-0500 Systolic blood pressure 134 mm[Hg] [facility] 04-16-2024 08:24-0500 Body height 170.18 cm [facility] 04-16-2024 08:24-0500 Body mass index (BMI) [Ratio] 28.2 kg/m2 [facility] 04-16-2024 08:24-0500 Body weight 81.76 kg [facility] 04-16-2024 08:24-0500 Diastolic blood pressure 80 mm[Hg] [facility] 04-16-2024 08:24-0500 Heart rate 84 /min [facility] 04-16-2024 08:24-0500 Respiratory rate 12 /min [facility] 04-16-2024 08:24-0500 SaO2% (BldA) [Mass fraction] 97 % [facility] 04-16-2024 08:24-0500 Systolic blood pressure 137 mm[Hg] [facility] 04-02-2024 11:44-0500 Body height 170.2 cm Kenneth Tavera DPM Work Phone: [facility] 04-02-2024 11:44-0500 Body mass index (BMI) [Ratio] 26.78 kg/m2 Kenneth Tavera DPM Work Phone: [facility] 04-02-2024 11:44-0500 Body weight 77.56 kg Kenneth Tavera DPM Work Phone: [facility] 04-02-2024 11:44-0500 Respiratory rate 18 /min Kenneth Tavera DPM Work Phone: [facility] 02-24-2024 09:46-0500 Body height 170.18 cm [facility] 02-24-2024 09:46-0500 Body mass index (BMI) [Ratio] 27.1 kg/m2 [facility] 02-24-2024 09:46-0500 Body weight 78.47 kg [facility] 02-24-2024 09:46-0500 Diastolic blood pressure 68 mm[Hg] [facility] 02-24-2024 09:46-0500 Heart rate 80 /min [facility] 02-24-2024 09:46-0500 SaO2% (BldA) [Mass fraction] 97 % [facility] 02-24-2024 09:46-0500 Systolic blood pressure 110 mm[Hg] [facility] 01-23-2024 11:29-0400 Body height 170.2 cm Kenneth Tavera DPM Work Phone: [facility] 01-23-2024 11:29-0400 Body mass index (BMI) [Ratio] 26.78 kg/m2 Kenneth Tavera DPM Work Phone: [facility] 01-23-2024 11:29-0400 Body weight 77.56 kg Kenneth Tavera DPM Work Phone: [facility] 01-23-2024 11:29-0400 Diastolic blood pressure 82 mm[Hg] Kenneth Tavera DPM Work Phone: [facility] 01-23-2024 11:29-0400 Heart rate 88 /min Kenneth Tavera DPM Work Phone: [facility] 01-23-2024 11:29-0400 Systolic blood pressure 128 mm[Hg] Kenneth Tavera DPM Work Phone: [facility] 01-23-2024 09:05-0400 Body height 170.18 cm [facility] 01-23-2024 09:05-0400 Body mass index (BMI) [Ratio] 27.3 kg/m2 [facility] 01-23-2024 09:05-0400 Body weight 79.37 kg [facility] 01-23-2024 09:05-0400 Diastolic blood pressure 71 mm[Hg] [facility] 01-23-2024 09:05-0400 Heart rate 78 /min [facility] 01-23-2024 09:05-0400 Respiratory rate 18 /min [facility] 01-23-2024 09:05-0400 SaO2% (BldA) [Mass fraction] 98 % [facility] 01-23-2024 09:05-0400 Systolic blood pressure 106 mm[Hg] [facility] 01-07-2024 08:26-0400 Body height 170.18 cm [facility] 01-07-2024 08:26-0400 Body mass index (BMI) [Ratio] 27.2 kg/m2 [facility] 01-07-2024 08:26-0400 Body temperature 96.7 [degF] [facility] 01-07-2024 08:26-0400 Body weight 78.98 kg [facility] 01-07-2024 08:26-0400 Diastolic blood pressure 77 mm[Hg] [facility] 01-07-2024 08:26-0400 Heart rate 91 /min [facility] 01-07-2024 08:26-0400 Respiratory rate 16 /min [facility] 01-07-2024 08:26-0400 SaO2% (BldA) [Mass fraction] 97 % [facility] 01-07-2024 08:26-0400 Systolic blood pressure 123 mm[Hg] [facility] 12-12-2023 08:25-0400 Body height 170.18 cm [facility] 12-12-2023 08:25-0400 Body mass index (BMI) [Ratio] 27.4 kg/m2 [facility] 12-12-2023 08:25-0400 Body weight 79.49 kg [facility] 12-12-2023 08:25-0400 Diastolic blood pressure 79 mm[Hg] [facility] 12-12-2023 08:25-0400 Heart rate 80 /min [facility] 12-12-2023 08:25-0400 Respiratory rate 12 /min [facility] 12-12-2023 08:25-0400 Systolic blood pressure 127 mm[Hg] [facility] 10-17-2023 09:21-0400 Body height 170.18 cm [facility] 10-17-2023 09:21-0400 Body mass index (BMI) [Ratio] 28.2 kg/m2 [facility] 10-17-2023 09:21-0400 Body weight 81.81 kg [facility] 10-17-2023 09:21-0400 Diastolic blood pressure 79 mm[Hg] [facility] 10-17-2023 09:21-0400 Heart rate 70 /min [facility] 10-17-2023 09:21-0400 Respiratory rate 18 /min [facility] 10-17-2023 09:21-0400 SaO2% (BldA) [Mass fraction] 97 % [facility] 10-17-2023 09:21-0400 Systolic blood pressure 133 mm[Hg] [facility] 08-12-2023 08:37-0400 Body height 170.18 cm [facility] 08-12-2023 08:37-0400 Body mass index (BMI) [Ratio] 27.6 kg/m2 [facility] 08-12-2023 08:37-0400 Body weight 79.88 kg [facility] 08-12-2023 08:37-0400 Diastolic blood pressure 84 mm[Hg] [facility] 08-12-2023 08:37-0400 Heart rate 82 /min [facility] 08-12-2023 08:37-0400 Respiratory rate 12 /min [facility] 08-12-2023 08:37-0400 Systolic blood pressure 134 mm[Hg] [facility] 07-02-2023 08:54-0400 Body height 170.18 cm [facility] 07-02-2023 08:54-0400 Body mass index (BMI) [Ratio] 27.3 kg/m2 [facility] 07-02-2023 08:54-0400 Body temperature 96.5 [degF] [facility] 07-02-2023 08:54-0400 Body weight 79.09 kg [facility] 07-02-2023 08:54-0400 Diastolic blood pressure 79 mm[Hg] [facility] 07-02-2023 08:54-0400 Heart rate 87 /min [facility] 07-02-2023 08:54-0400 Respiratory rate 18 /min [facility] 07-02-2023 08:54-0400 SaO2% (BldA) [Mass fraction] 96 % [facility] 07-02-2023 08:54-0400 Systolic blood pressure 120 mm[Hg] [facility] 06-18-2023 10:51-0400 Body height 170.18 cm [facility] 06-18-2023 10:51-0400 Body mass index (BMI) [Ratio] 26.6 kg/m2 [facility] 06-18-2023 10:51-0400 Body weight 77.11 kg [facility] 06-18-2023 10:51-0400 Diastolic blood pressure 84 mm[Hg] [facility] 06-18-2023 10:51-0400 Heart rate 95 /min [facility] 06-18-2023 10:51-0400 Respiratory rate 18 /min [facility] 06-18-2023 10:51-0400 SaO2% (BldA) [Mass fraction] 97 % [facility] 06-18-2023 10:51-0400 Systolic blood pressure 127 mm[Hg] [facility] 05-03-2023 09:30-0500 Body height 170.18 cm DO Harley Ball Work Phone: [facility] 05-03-2023 09:30-0500 Body weight 77.29 kg DO Harley Ball Work Phone: [facility] 05-03-2023 09:30-0500 Diastolic blood pressure 85 mm[Hg] DO Harley Ball Work Phone: [facility] 05-03-2023 09:30-0500 Systolic blood pressure 126 mm[Hg] DO Harley Ball Work Phone: [facility] 03-12-2023 11:15-0500 Body height 170.18 cm Tondra Mapus Other [facility] 03-12-2023 11:15-0500 Body mass index (BMI) [Ratio] 27.03 kg/m2 Tondra Mapus Other [facility] Other 03-12-2023 11:15-0500 Body weight 78.29 kg Tondra Mapus Other [facility] 03-12-2023 11:15-0500 Diastolic blood pressure 79 mm[Hg] Tondra Mapus Other [facility] 03-12-2023 11:15-0500 Respiratory rate 18 /min Tondra Mapus Other [facility] Other 03-12-2023 11:15-0500 SaO2% (BldA) [Mass fraction] 98 % Tondra Mapus Other [facility] Other 03-12-2023 11:15-0500 Systolic blood pressure 128 mm[Hg] Tondra Mapus Other [facility] 01-07-2023 10:00-0400 Body height 170.18 cm Kingsley Latisha Other [facility] Other 01-07-2023 10:00-0400 Body mass index (BMI) [Ratio] 27 kg/m2 Kingsley Latisha Other [facility] Other 01-07-2023 10:00-0400 Body temperature 97.7 [degF] Kingsley Latisha Other [facility] Other 01-07-2023 10:00-0400 Body weight 78.2 kg Kingsley Latisha Other [facility] Other 01-07-2023 10:00-0400 Diastolic blood pressure 73 mm[Hg] Kingsley Latisha Other [facility] Other 01-07-2023 10:00-0400 Respiratory rate 16 /min Kingsley Latisha Other [facility] Other 01-07-2023 10:00-0400 SaO2% (BldA) [Mass fraction] 98 % Kingsley Latisha Other [facility] Other 01-07-2023 10:00-0400 Systolic blood pressure 108 mm[Hg] Kingsley Latisha Other [facility] Other 12-31-2022 09:30-0400 Body height 170.18 cm Harley Ball Other [facility] Other 12-31-2022 09:30-0400 Body mass index (BMI) [Ratio] 27.03 kg/m2 Harley Ball Other [facility] Other 12-31-2022 09:30-0400 Body weight 78.29 kg Harley Ball Other [facility] Other 12-31-2022 09:30-0400 Diastolic blood pressure 69 mm[Hg] Harley Ball Other [facility] Other 12-31-2022 09:30-0400 Respiratory rate 16 /min Harley Ball Other [facility] Other 12-31-2022 09:30-0400 Systolic blood pressure 102 mm[Hg] Harley Ball Other [facility] Other 08-31-2022 08:45-0400 Body height 170.18 cm Harley Ball Other [facility] Other 08-31-2022 08:45-0400 Body mass index (BMI) [Ratio] 26.72 kg/m2 Harley Ball Other [facility] Other 08-31-2022 08:45-0400 Body weight 77.38 kg Harley Ball Other [facility] Other 08-31-2022 08:45-0400 Diastolic blood pressure 69 mm[Hg] Harley Ball Other [facility] Other 08-31-2022 08:45-0400 Respiratory rate 12 /min Harley Ball Other [facility] Other 08-31-2022 08:45-0400 Systolic blood pressure 102 mm[Hg] Harley Ball Other [facility] Other 07-02-2022 10:40-0400 Body height 170.18 cm Kingsley Morar Other [facility] Other 07-02-2022 10:40-0400 Body mass index (BMI) [Ratio] 27.69 kg/m2 Kingsley Latisha Other [facility] Other 07-02-2022 10:40-0400 Body temperature 96.4 [degF] Kingsley Latisha Other [facility] Other 07-02-2022 10:40-0400 Body weight 80.2 kg Kingsley Latisha Other [facility] Other 07-02-2022 10:40-0400 Diastolic blood pressure 71 mm[Hg] Kingsley Latisha Other [facility] Other 07-02-2022 10:40-0400 Respiratory rate 16 /min Kingsley Latisha Other [facility] Other 07-02-2022 10:40-0400 SaO2% (BldA) [Mass fraction] 97 % Kingsley Latisha Other [facility] Other 07-02-2022 10:40-0400 Systolic blood pressure 115 mm[Hg] Kingsley Latisha Other [facility] Other 06-28-2022 09:30-0400 Body height 170.18 cm Harley Ball Other [facility] Other 06-28-2022 09:30-0400 Body mass index (BMI) [Ratio] 27.16 kg/m2 Harley Ball Other [facility] Other 06-28-2022 09:30-0400 Body weight 78.65 kg Harley Ball Other [facility] Other 06-28-2022 09:30-0400 Diastolic blood pressure 66 mm[Hg] Harley Ball Other [facility] Other 06-28-2022 09:30-0400 Respiratory rate 12 /min Harley Ball Other [facility] Other 06-28-2022 09:30-0400 Systolic blood pressure 115 mm[Hg] Harley Ball Other [facility] Other 06-26-2022 08:45-0400 Body height 170.18 cm Tondra Mapus Other [facility] Other 06-26-2022 08:45-0400 Body mass index (BMI) [Ratio] 27.75 kg/m2 Tondra Mapus Other [facility] Other 06-26-2022 08:45-0400 Body weight 80.38 kg Tondra Mapus Other [facility] Other 06-26-2022 08:45-0400 Diastolic blood pressure 61 mm[Hg] Tondra Mapus Other [facility] Other 06-26-2022 08:45-0400 Respiratory rate 16 /min Tondra Mapus Other [facility] Other 06-26-2022 08:45-0400 SaO2% (BldA) [Mass fraction] 96 % Tondra Mapus Other [facility] Other 06-26-2022 08:45-0400 Systolic blood pressure 105 mm[Hg] Tondra Mapus Other [facility] Other 03-20-2022 09:15-0500 Body height 170.18 cm Tondra Mapus Other [facility] Other 03-20-2022 09:15-0500 Body mass index (BMI) [Ratio] 26.15 kg/m2 Tondra Mapus Other [facility] Other 03-20-2022 09:15-0500 Body weight 75.75 kg Tondra Mapus Other [facility] Other 03-20-2022 09:15-0500 Diastolic blood pressure 57 mm[Hg] Tondra Mapus Other [facility] Other 03-20-2022 09:15-0500 Respiratory rate 16 /min Tondra Mapus Other [facility] Other 03-20-2022 09:15-0500 SaO2% (BldA) [Mass fraction] 98 % Tondra Mapus Other [facility] Other 03-20-2022 09:15-0500 Systolic blood pressure 117 mm[Hg] Tondra Mapus Other [facility] Other 01-17-2022 11:45-0400 Body height 170.18 cm DO Harley Ball Work Phone: [facility] 01-17-2022 11:22-0400 Diastolic blood pressure 68 mm[Hg] DO Harley Ball Work Phone: [facility] 01-17-2022 11:22-0400 Heart rate 60 /min DO Harley Ball Work Phone: [facility] 01-17-2022 11:22-0400 Systolic blood pressure 118 mm[Hg] DO Harley Ball Work Phone: [facility] 01-17-2022 11:05-0400 Body temperature 97.4 [degF] DO Harley Ball Work Phone: [facility] 01-17-2022 11:05-0400 Respiratory rate 18 /min DO Harley Ball Work Phone: [facility] 01-17-2022 11:05-0400 SaO2% (BldA) [Mass fraction] 95 % DO Harley [employer] Work Phone: [facility] 01-17-2022 06:58-0400 Body weight 77.9 kg DO Harley [employer] Work Phone: [facility] 01-15-2022 15:23-0400 Inhaled oxygen flow rate 2 L/min DO [employer] Work Phone: [facility] 12-18-2021 09:45-0400 Body height 170.18 cm Tondra Mapus Other [facility] Other 12-18-2021 09:45-0400 Body mass index (BMI) [Ratio] 27.25 kg/m2 Tondra Mapus Other [facility] Other 12-18-2021 09:45-0400 Body weight 78.93 kg Tondra Mapus Other [facility] Other 12-18-2021 09:45-0400 Diastolic blood pressure 65 mm[Hg] Tondra Mapus Other [facility] Other 12-18-2021 09:45-0400 Respiratory rate 16 /min Tondra Mapus Other [facility] Other 12-18-2021 09:45-0400 SaO2% (BldA) [Mass fraction] 97 % Tondra Mapus Other [facility] Other 12-18-2021 09:45-0400 Systolic blood pressure 133 mm[Hg] Tondra Mapus Other [facility] Other 09-29-2021 13:13-0400 Blood Pressure Location [facility] [place] 09-29-2021 13:13-0400 Diastolic blood pressure 74 mm[Hg] [facility] [place] 09-29-2021 13:13-0400 Heart rate 60 /min [facility] [place] 09-29-2021 13:13-0400 Respiratory rate 16 /min [facility] [place] 09-29-2021 13:13-0400 Systolic blood pressure 138 mm[Hg] [facility] [place] 07-17-2021 09:45-0400 Body height 170.18 cm Tondra Desireeus Other [facility] Other 07-17-2021 09:45-0400 Body mass index (BMI) [Ratio] 30.69 kg/m2 Tondra Mapus Other [facility] Other 07-17-2021 09:45-0400 Body weight 88.91 kg Tondra Mapus Other [facility] Other 07-17-2021 09:45-0400 Diastolic blood pressure 73 mm[Hg] Tondra Mapus Other [facility] Other 07-17-2021 09:45-0400 Respiratory rate 16 /min Tondra Mapus Other [facility] Other 07-17-2021 09:45-0400 SaO2% (BldA) [Mass fraction] 97 % Tondra Mapus Other [facility] Other 07-17-2021 09:45-0400 Systolic blood pressure 163 mm[Hg] Tondra Mapus Other [facility] Other 06-06-2021 10:20-0500 Body height 170.18 cm Kingsley Latisha Other [facility] Other 06-06-2021 10:20-0500 Body mass index (BMI) [Ratio] 30.29 kg/m2 Kingsley Latisha Other [facility] Other 06-06-2021 10:20-0500 Body temperature 96.1 [degF] Kingsley Latisha Other [facility] Other 06-06-2021 10:20-0500 Body weight 87.73 kg Kingsley Latisha Other [facility] Other 06-06-2021 10:20-0500 Diastolic blood pressure 70 mm[Hg] Kingsley Latisha Other [facility] Other 06-06-2021 10:20-0500 Respiratory rate 18 /min Kingsley Latisha Other [facility] Other 06-06-2021 10:20-0500 SaO2% (BldA) [Mass fraction] 97 % Kingsley Latisha Other [facility] Other 06-06-2021 10:20-0500 Systolic blood pressure 160 mm[Hg] Kingsley Latisha Other [facility] Other 04-10-2021 09:15-0500 Body height 170.18 cm Tondra Mapus Other [facility] Other 04-10-2021 09:15-0500 Body mass index (BMI) [Ratio] 30.99 kg/m2 Tondra Mapus Other [facility] Other 04-10-2021 09:15-0500 Body weight 89.77 kg Tondra Mapus Other [facility] Other 04-10-2021 09:15-0500 Diastolic blood pressure 64 mm[Hg] Tondra Mapus Other [facility] Other 04-10-2021 09:15-0500 Respiratory rate 18 /min Tondra Mapus Other [facility] Other 04-10-2021 09:15-0500 SaO2% (BldA) [Mass fraction] 98 % Tondra Mapus Other [facility] Other 04-10-2021 09:15-0500 Systolic blood pressure 136 mm[Hg] Tondra Mapus Other [facility] Other 02-14-2021 10:00-0500 Body height 170.18 cm Kingsley Latisha Other [facility] Other 02-14-2021 10:00-0500 Body mass index (BMI) [Ratio] 30.98 kg/m2 Kingsley Latisha Other [facility] Other 02-14-2021 10:00-0500 Body temperature 96 [degF] Kingsley Latisha Other [facility] Other 02-14-2021 10:00-0500 Body weight 89.72 kg Kingsley Latisha Other [facility] Other 02-14-2021 10:00-0500 Diastolic blood pressure 60 mm[Hg] Kingsley Latisha Other [facility] Other 02-14-2021 10:00-0500 Respiratory rate 16 /min Kingsley Latisha Other [facility] Other 02-14-2021 10:00-0500 SaO2% (BldA) [Mass fraction] 97 % Kingsley Latisha Other [facility] Other 02-14-2021 10:00-0500 Systolic blood pressure 130 mm[Hg] Kingsley Latisha Other [facility] Other 01-03-2021 10:15-0400 Body height 170.18 cm Tondra Mapus Other [facility] Other 01-03-2021 10:15-0400 Body mass index (BMI) [Ratio] 31.01 kg/m2 Tondra Mapus Other [facility] Other 10-05-2021 10:15-0400 Body weight 89.81 kg Tondra Mapus Other [facility] Other 01-03-2021 10:15-0400 Diastolic blood pressure 67 mm[Hg] Tondra Mapus Other [facility] Other 01-03-2021 10:15-0400 Respiratory rate 16 /min Tondra Mapus Other [facility] Other 01-03-2021 10:15-0400 SaO2% (BldA) [Mass fraction] 99 % Tondra Mapus Other [facility] Other 01-03-2021 10:15-0400 Systolic blood pressure 151 mm[Hg] Tondra Mapus Other [facility] Other Encounters Encounter Date Encounter Type Care Provider Facility Start: 01-08-2025 End: 01-08-2025 ambulatory Jason LARKIN [place] [place]: 01-08-2025 End: 01-08-2025 ambulatory Jason LARKIN Facility:[facility] Start: 01-08-2025 End: 01-08-2025 Patient encounter procedure Jason LARKIN [facility] Start: 12-22-2024 ambulatory [facility]EVIN [facility] Start: 12-18-2024 End: 12-18-2024 ambulatory Jason LARKIN Facility[facility] Start: 12-18-2024 End: 12-18-2024 ambulatory Jason LARKIN Facility:[facility] Start: 12-18-2024 End: 12-18-2024 Patient encounter procedure Jason LARKIN [facility] Start: 12-03-2024 End: 12-03-2024 Bamboo flowsheet Kenneth Tavera DPM Work Phone: [facility] Start: 12-03-2024 End: 12-03-2024 Bamboo flowsheet Kenneth Tavera DPM Work Phone: [facility] Start: 12-03-2024 End: 12-03-2024 Patient encounter procedure Kenneth Tavera DPM Work Phone: [facility] Comment on above: 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, without long-term current use of insulin (HCC) (Primary Dx); Pain due to onychomycosis of toenails of both feet; Xerosis cutis Start: 12-03-2024 End: 12-03-2024 ambulatory KENNETH TAVERA Not Available Start: 12-02-2024 End: 12-02-2024 ambulatory Harley Crespo Facility:[facility] Start: 12-02-2024 Non-patient / Non-visit Harley phillips DO [facility] Work Phone: Start: 12-01-2024 End: 12-01-2024 ambulatory Harley Crespo DO Work Phone: [facility] Work Phone: Start: 12-01-2024 End: 12-01-2024 Patient encounter procedure Harley Crespo DO -[facility] Work Phone: Start: 11-23-2024 End: 11-23-2024 ambulatory Jason LARKIN Facility:[facility] Start: 11-23-2024 End: 11-23-2024 Patient encounter procedure Jason LARKIN [facility] Start: 11-19-2024 ambulatory EMEKA NICHOLAS [facility] Start: 11-13-2024 End: 11-13-2024 ambulatory Jason LARKIN Facility:[facility] Start: 11-13-2024 End: 11-13-2024 Patient encounter procedure Jason Sanchez CHAYA [facility] Start: 11-11-2024 End: 11-11-2024 ambulatory [place] [facility] Start: 11-10-2024 End: 11-10-2024 ambulatory Harley Ball DO Work Phone: [facility] Work Phone: Start: 11-10-2024 End: 11-10-2024 Patient encounter procedure Arlen Kwong RICE FARMWORKER-C -[facility] Work Phone: Start: 11-09-2024 Non-patient / Non-visit Kingsley Good MD -[facility] Work Phone: Start: 10-27-2024 End: 10-27-2024 ambulatory Harley Ball DO Work Phone: [facility] Work Phone: Start: 10-27-2024 End: 10-27-2024 Patient encounter procedure Harley Ball DO -[facility] Work Phone: Start: 10-26-2024 Non-patient / Non-visit Jackson howell MD -[facility] Work Phone: Start: 10-26-2024 End: 10-26-2024 ambulatory Harley Ball DO Work Phone: [facility] Work Phone: Start: 10-26-2024 End: 10-26-2024 Departed Referred Jackson Miles MD -[facility] Start: 10-21-2024 ambulatory [facility] Start: 10-15-2024 Non-patient / Non-visit Codi Abdi CMA -[facility] Work Phone: Start: 10-14-2024 ambulatory [facility] Start: 10-14-2024 Non-patient / Non-visit Meghan cyr MD [facility] Work Phone: Start: 10-13-2024 Non-patient / Non-visit Meghan cyr MD [facility] Work Phone: Start: 10-12-2024 Non-patient / Non-visit Meghan cyr MD [facility] Work Phone: Start: 10-11-2024 End: 10-11-2024 ambulatory Lyssa Alcantar Facility:[facility] Start: 10-11-2024 Non-patient / Non-visit Asa Alcantar -[facility] Work Phone: Start: 10-08-2024 End: 10-08-2024 ambulatory [facility] Start: 10-06-2024 ambulatory [facility] Start: 09-29-2024 End: 09-29-2024 ambulatory [facility] Start: 09-26-2024 Non-patient / [facility] Start: 09-25-2024 End: 09-25-2024 ambulatory [facility] Start: 09-24-2024 End: 09-24-2024 Bamboo flowsheet Kenneth [...] 09-21-2024 Non-patient / Non-visit Jackson howell MD -[facility] Work Phone: Start: 09-21-2024 End: 09-21-2024 ambulatory NON STAFF Facility:[facility] Start: 09-21-2024 End: 09-21-2024 Departed Referred NON STAFF -[facility] Start: 08-28-2024 End: 08-28-2024 ambulatory OBI [facility] Start: 08-28-2024 End: 08-28-2024 ambulatory [facility] Start: 08-27-2024 End: 08-27-2024 ambulatory Harley Cherie Facility:[facility] Start: 08-27-2024 Non-patient / Non-visit [facility] Work Phone: Start: 08-25-2024 End: 08-25-2024 ambulatory [facility] Work Phone: Start: 08-25-2024 End: 08-25-2024 Patient encounter procedure [facility] Work Phone: Start: 08-21-2024 Non-patient / Non-visit [facility] Work Phone: Start: 08-20-2024 End: 08-20-2024 ambulatory EHAB VIJAY [facility] Start: 08-14-2024 Evaluation and management of inpatient [facility] Start: 08-13-2024 Evaluation and management of inpatient TATIANNA [facility] Start: 08-13-2024 End: 08-14-2024 Evaluation and management of inpatient KATARZYNA YOUNGBLOOD [facility] Start: 08-13-2024 Non-patient / Non-visit [facility] Work Phone: Start: 08-04-2024 End: 08-04-2024 ambulatory OBI JOSE EA [facility] Start: 08-04-2024 End: 08-04-2024 ambulatory Jason LARKIN Facility[facility] Start: 08-04-2024 End: 08-04-2024 Patient encounter procedure Jason LARKIN [facility] Start: 08-03-2024 End: 08-03-2024 ambulatory Jason LARKIN Facility:[facility] Start: 08-03-2024 End: 08-03-2024 Lab Drop off Jason LARKIN [facility] Start: 08-03-2024 End: 08-03-2024 ambulatory HARLEY BALL Facility: [place] Start: 08-03-2024 End: 08-03-2024 ambulatory Harley Ball DO Work Phone: [facility] Work Phone: Start: 08-03-2024 End: 08-03-2024 Patient encounter procedure Harley Ball DO Work Phone: [facility] Work Phone: Start: 07-27-2024 End: 07-27-2024 ambulatory Harley Ball DO Work Phone: [facility] Work Phone: Start: 07-27-2024 End: 07-27-2024 Patient encounter procedure Harley Ball DO Work Phone: [facility] Work Phone: Start: 07-17-2024 ambulatory EMEKA NICHOLAS [facility] Start: 07-16-2024 Non-patient / Non-visit Benjam in Ball DO Work Phone: [facility] Work Phone: Start: 07-15-2024 ambulatory Jason LARKIN Facility :[facility] Start: 07-15-2024 Non-patient / Non-visit Benjam in Ball DO Work Phone: [facility] Work Phone: Start: 07-14-2024 End: 07-14-2024 ambulatory Harley Ball DO Work Phone: [facility] Work Phone: Start: 07-14-2024 End: 07-14-2024 Patient encounter procedure Harley Ball DO Work Phone: [facility] Work Phone: Start: 07-07-2024 End: 07-07-2024 ambulatory Kingsley Latisha Facility:[facility] Start: 07-07-2024 Non-patient / Non-visit Benjam in Ball DO Work Phone: [facility] Work Phone: Start: 06-22-2024 ambulatory KEVIN ARTEAGA [facility] Start: 06-18-2024 End: 06-18-2024 ambulatory KENNETH TAVERA Not Available Start: 06-10-2024 Non-patient / Non-visit Benjam in Ball DO Work Phone: [facility] Work Phone: Start: 05-28-2024 End: 05-28-2024 Departed Referred Harley Ball DO Work Phone: [facility] [employer] Work Phone: Start: 05-28-2024 End: 05-28-2024 Patient encounter procedure Harley Ball DO Work Phone: [facility] [employer] Work Phone: Start: 05-28-2024 End: 05-28-2024 ambulatory Harley Ball DO Work Phone: [facility] Work Phone: Start: 05-26-2024 End: 05-26-2024 ambulatory KEVIN [facility] Start: 05-18-2024 ambulatory [facility] Start: 05-05-2024 Non-patient / Non-visit Steveam in Cherie DO Work Phone: [facility] Work Phone: Start: 04-30-2024 End: 04-30-2024 ambulatory [facility] Work Phone: Start: 04-30-2024 End: 04-30-2024 Patient encounter procedure [facility] Work Phone: Start: 04-21-2024 ambulatory [facility] Start: 04-16-2024 End: 04-16-2024 Patient encounter procedure [facility] Work Phone: Start: 04-02-2024 End: [...] polyneuropathy, without long-term current use of insulin ([facility]) (Primary Dx); Pain due to onychomycosis of toenails of both feet Start: 04-02-2024 End: 04-02-2024 ambulatory KENNETH TAVERA Not Available Start: 03-26-2024 Encounter for preprocedural cardiovascular examination [facility] Start: 03-26-2024 ambulatory [facility] Start: 03-10-2024 End: 03-10-2024 ambulatory [facility] Start: 03-06-2024 ambulatory [facility] Start: 02-24-2024 End: 02-24-2024 Patient encounter procedure [facility] Work Phone: Start: 02-20-2024 ambulatory [facility] Start: 02-18-2024 Non-patient / Non-visit [facility] Work Phone: Start: 02-18-2024 Non-patient / Non-visit [facility] Work Phone: Start: 02-13-2024 Evaluation and management of inpatient [facility] Start: 02-13-2024 [facility] Start: 02-13-2024 [facility] Start: 02-13-2024 End: 02-14-2024 Evaluation and management of inpatient HEMALATHA LAGOS [facility] Start: 02-12-2024 Non-patient / Non-visit [facility] Work Phone: Start: 02-12-2024 Non-patient / Non-visit [facility] Work Phone: Start: [...] polyneuropathy, without long-term current use of insulin ([facility]); Pain due to onychomycosis of toenails of both feet Start: 01-23-2024 End: 01-23-2024 ambulatory KENNETH TAVERA Not Available Start: 01-23-2024 End: 01-23-2024 ambulatory [facility] Work Phone: Start: 01-23-2024 End: 01-23-2024 Patient encounter procedure [facility] Work Phone: Start: 01-21-2024 ambulatory [facility] Start: 01-16-2024 ambulatory [facility] Start: 01-10-2024 ambulatory [facility] Start: 01-09-2024 ambulatory [facility] Start: 01-07-2024 End: 01-07-2024 ambulatory [facility] Work Phone: Start: 01-07-2024 End: 01-07-2024 Patient encounter procedure [facility] [employer] Work Phone: Start: 12-30-2023 Non-patient / Non-visit [facility] Work Phone: Start: 12-12-2023 End: 12-12-2023 ambulatory [facility] Work Phone: Start: 12-12-2023 End: 12-12-2023 Patient encounter procedure [facility] Work Phone: Start: 10-17-2023 End: 10-17-2023 ambulatory [facility] Work Phone: Start: 10-17-2023 End: 10-17-2023 Patient encounter procedure [facility] Work Phone: Start: 09-26-2023 Non-patient / Non-visit [facility] Work Phone: Start: 09-26-2023 Non-patient / Non-visit [facility] Work Phone: Start: 08-27-2023 Non-patient / Non-visit [facility] Work Phone: Start: 08-12-2023 End: 08-12-2023 ambulatory [facility] Work Phone: Start: 08-12-2023 End: 08-12-2023 Patient encounter procedure [facility] Work Phone: Start: 07-02-2023 End: 07-02-2023 ambulatory [facility] Work Phone: Start: 07-02-2023 End: 07-02-2023 Patient encounter procedure [facility] Work Phone: Start: 06-24-2023 Non-patient / Non-visit [facility] Work Phone: Start: 06-18-2023 End: 06-18-2023 ambulatory [facility] Work Phone: Start: 06-18-2023 End: 06-18-2023 Patient encounter procedure [facility] Work Phone: Start: 06-13-2023 Non-patient / Non-visit [facility] Work Phone: Start: 05-03-2023 End: 05-03-2023 Patient encounter procedure DO Harley Crespo Work Phone: [facility]- Start: 04-30-2023 End: 04-30-2023 ambulatory Kingsley Latisha Other [facility] [employer] Other Start: 04-30-2023 Telephone encounter Kingsley Latisha [facility] Start: 04-23-2023 End: 04-23-2023 ambulatory Tondra Mapus Other [employer] Other Start: 04-23-2023 Telephone encounter Tondra Varghese [facility] Start: 03-12-2023 (DM) Diabetes Tondra Varghese [facility] Start: 03-12-2023 End: 03-12-2023 ambulatory DO Harley Crespo Work Phone: [employer] Other Start: 03-12-2023 End: 03-12-2023 Discharged Recurring DO Harley Crespo Work Phone: [facility] Work Phone: Start: 03-12-2023 End: 03-12-2023 Patient encounter procedure DO Harley Crespo Work Phone: [facility] Work Phone: Start: 02-12-2023 End: 02-12-2023 ambulatory Harley Crespo Other [employer] Other Start: 02-12-2023 Telephone encounter Harley Crespo [facility] Start: 02-07-2023 End: 02-07-2023 ambulatory Harley Crespo Other [employer] Other Start: 02-07-2023 Telephone encounter Harley Crespo [facility] Start: 02-06-2023 End: 02-06-2023 ambulatory Tondra Mapus Other [employer] Other Start: 02-06-2023 Telephone encounter Tondra Varghese [facility] Start: 01-29-2023 End: 01-29-2023 ambulatory Harley Crespo Other [employer] Other Start: 01-29-2023 Telephone encounter Harley Crespo [facility] Start: 01-17-2023 End: 01-17-2023 ambulatory Tondra Mapus Other [employer] Other Start: 01-17-2023 Telephone encounter Tondra Desireeus [facility] Start: 01-07-2023 End: 01-07-2023 ambulatory Harley Crespo Other [employer] Other Start: 01-07-2023 Office outpatient vi sit 25 minutes Kingsley Latisha [facility] Start: 01-07-2023 Telephone encounter Harley Crespo [facility] Start: 01-04-2023 End: 01-04-2023 ambulatory Kingsley Latisha Other [employer] Other Start: 01-04-2023 Telephone encounter Kingsley Latisha [facility] Start: 01-01-2023 End: 01-01-2023 ambulatory Kingsley Latisha Other [employer] Other Start: 01-01-2023 Telephone encounter Kingsley Latisha [facility] Start: 12-31-2022 End: 12-31-2022 ambulatory Harley Crespo Other [employer] Other Start: 12-31-2022 Office outpatient vi sit 25 minutes Harley Cherie [facility] Start: 12-31-2022 Telephone encounter Harley Crespo [facility] Start: 12-13-2022 End: 12-13-2022 ambulatory Denita Chairez Other [employer] Other Start: 12-13-2022 Nursing evaluation o f patient and report Denita Chiarez [facility] Start: 11-23-2022 End: 11-23-2022 ambulatory Tondra Mapus Other [employer] Other Start: 11-23-2022 Telephone encounter Tondra Mapus [facility] Start: 10-12-2022 End: 10-12-2022 ambulatory Tondra Mapus Other [employer] Other Start: 10-12-2022 Telephone encounter Arlen Shane [facility] Start: 10-09-2022 End: 10-09-2022 ambulatory Harley Crespo Other [employer] Other Start: 10-09-2022 Telephone encounter Harley Ball [facility] Start: 10-01-2022 End: 10-01-2022 ambulatory Harley Crespo Other [employer] Other Start: 10-01-2022 Telephone encounter Harley Ball [facility] Start: 09-27-2022 End: 09-27-2022 ambulatory Kingsley Latisha Other [employer] Other Start: 09-27-2022 Telephone encounter Kingsley Latisha [facility] Start: 09-26-2022 End: 09-26-2022 ambulatory Harley Crespo Other [employer] Other Start: 09-26-2022 Telephone encounter Harley Ball [facility] Start: 09-19-2022 End: 09-19-2022 ambulatory Kingsley Latisha Other [employer] Other Start: 09-19-2022 Telephone encounter Kingsley Latisha [facility] Start: 09-12-2022 End: 09-12-2022 ambulatory Harley Crespo Other [employer] Other Start: 09-12-2022 Telephone encounter Harley Ball [facility] Start: 09-03-2022 End: 09-03-2022 ambulatory Harley Cherie Other [employer] Other Start: 09-03-2022 Telephone encounter Harley Ball [facility] Start: 08-31-2022 End: 08-31-2022 ambulatory Harley Ball Other [employer] Other Start: 08-31-2022 Office outpatient vi sit 25 minutes Harley Crespo [facility] Start: 08-10-2022 End: 08-10-2022 ambulatory Harley Crespo Other [employer] Other Start: 08-10-2022 Telephone encounter Harley HERRMANN [facility] Start: 08-09-2022 End: 08-10-[address] HARLEY CRESPO [facility] [employer] Other Start: 08-09-2022 Telephone encounter Kingsley Latisha [facility] Start: 07-02-2022 End: 07-02-2022 ambulatory Kingsley Latisha Other [employer] Other Start: 07-02-2022 Office outpatient vi sit 25 minutes Kingsley Latisha [facility] Start: 06-28-2022 End: 06-28-2022 ambulatory Harley Crespo Other [employer] Other Start: 06-28-2022 Patient encounter procedure Harley Crespo [facility] Start: 06-26-2022 (DM) Diabetes Tondra Mapus [facility] Start: 06-26-2022 End: 06-26-2022 ambulatory Tondra Mapus Other [employer] Other Start: 06-25-2022 End: 06-26-2022 ambulatory KINGSLEY LATISHA Facility:[facility] Start: 06-18-2022 End: 06-19-2022 ambulatory TONDRA MAPUS Facility:[facility] Start: 06-05-2022 End: 06-06-[address] HARLEY CRESPO Facility:[facility] Start: 05-26-2022 End: 05-26-2022 ambulatory Harley Crespo Other [employer] Other Start: 05-26-2022 Telephone encounter Harley HERRMANN [facility] Start: 05-25-2022 End: 05-25-2022 ambulatory Tondra Mapus Other [employer] Other Start: 05-25-2022 Telephone encounter Tondra Mapus [facility] Start: 05-03-2022 End: 05-04-[address] PINKY BISHOP Facility:[facility] Start: 04-18-2022 End: 04-19-[address] PINKY BISHOP Facility:[facility] Start: 03-22-2022 End: 03-23-[address] HIGINIO FLANAGAN Facility:[facility] Start: 03-20-2022 (DM) Diabetes Tondra Mapus [facility] Start: 03-20-2022 End: 03-20-2022 ambulatory Tondra Mapus Other [employer] Other Start: 03-12-2022 End: 03-13-2022 Evaluation and management of inpatient DR PARUL CHU Facility:[facility] Start: 03-09-2022 End: 03-10-[address] SHANNON LANDIS Facility:[facility] Start: 03-02-2022 End: 03-03-[address] HARLEY CRESPO Facility:[facility] Start: 02-19-2022 End: 02-19-2022 ambulatory Tondra Mapus Other [employer] Other Start: 02-19-2022 Telephone encounter Tondra Mapus [facility] Start: 02-08-2022 End: 02-08-2022 ambulatory Tondra Mapus Other [employer] Other Start: 02-08-2022 Telephone encounter Tondra Mapus [facility] Start: 01-15-2022 End: 01-17-2022 Evaluation and management of inpatient DO Harley Crespo Work Phone: [facility] [place] [facility] Start: 01-15-2022 End: 01-15-[address] HARLEY CRESPO Facility:[facility] Start: 09-19-2022 Registered Recurring DO Benjam in Ball [facility] Start: 12-18-2021 (DM) Diabetes Tondra Mapus [facility] Start: 12-18-2021 End: 12-18-2021 ambulatory Tondra Mapus Other [employer] Other Start: 12-08-2021 End: 12-09-[address] HARLEY CRESPO Facility:[facility] Start: 11-30-2021 End: 12-01-2021 ambulatory KINGSLEY GOOD Facility:[facility] Start: 11-24-2021 End: 11-25-[address] HARLEY CRESPO Facility:[facility] Start: 11-16-2021 End: 11-16-2021 ambulatory Tondra Mapus Other [employer] Other Start: 11-16-2021 Telephone encounter Tondra Mapus [facility] Start: 2021 End: 2021 ambulatory Tondra Mapus Other [employer] Other Start: 2021 Telephone encounter Tondra Mapus [facility] Start: 10-31-2021 End: 10-31-2021 ambulatory Tondra Mapus Other [employer] Other Start: 10-31-2021 Telephone encounter Tondra Mapus [facility] Start: 10-27-2021 End: [...] 07-24-2021 End: 07-24-2021 ambulatory Tondra Mapus Other [employer] Other Start: 07-24-2021 Telephone encounter Tondra Mapus [facility] Start: 07-17-2021 (DM) Diabetes Tondra Mapus [facility] Start: 07-17-2021 End: 07-17-2021 ambulatory Tondra Mapus Other [employer] Other Start: 06-19-2021 End: 06-19-2021 ambulatory Shannon Escobar Other [employer] Other Start: 06-19-2021 Telephone encounter Shannon Escobar [facility] Start: 06-06-2021 End: 06-06-2021 ambulatory Kingsley Latisha Other [employer] Other Start: 06-06-2021 Office outpatient vi sit 25 minutes Kingsley Latisha [facility] Start: 05-22-2021 End: 05-22-2021 ambulatory Tondra Mapus Other [employer] Other Start: 05-22-2021 Telephone encounter Tondra Mapus [facility] Start: 05-16-2021 End: 05-16-2021 ambulatory Tondra Mapus Other [employer] Other Start: 05-16-2021 Telephone encounter Tondra Mapus [facility] Start: 04-10-2021 (DM) Diabetes Tondra Mapus [facility] Start: 04-10-2021 End: 04-10-2021 ambulatory Tondra Mapus Other [employer] Other Start: 04-10-2021 Telephone encounter Tondra Desireeus [facility] Start: 02-14-2021 End: 02-14-2021 ambulatory Kingsley Latisha Other [employer] Other Start: 02-14-2021 Patient encounter procedure Kingsley Latisha [facility] Start: 02-14-2021 Telephone encounter Kahlila Varghese [facility] Start: 01-03-2021 (DM) Diabetes Kahlila Varghese [facility] Start: 10-14-2018 End: 10-15-2018 Patient encounter procedure [facility] [facility] Start: 02-24-2018 End: 02-25-2018 Evaluation and management of inpatient [facility] Procedures Date Procedure Procedure Detail Performing Clinician [...] catheterization Gagan DAVID Start: 04-01-2002 Cardiac catheterization Gaagn DAVID Start: 04-01-1991 Coronary artery bypass graft Gagan Phillips History of placement of stent for coronary artery disease Jason LARKIN Pacemaker care management Jaron LARKIN Percutaneous coronary intervention Gagan DAVID Comment on above: stent/vein graft Plan of Treatment Date Care Activity Detail Author Start: 07-11-2031 Screening for malign ant neoplasm of colon [facility] Start: 12-03-2024 End: 12-03-2024 Patient encounter procedure 12/03/2024 8:30 AM EDT Office Visit [facility] [address] [place] [id number] Kenneth Tavera DPM [address] [address] Diabetes mellitus due to underlying condition with [...] toenails of both feet; Xerosis cutis Start: 12-02-2024 Urine culture [facility] Start: 11-30-2024 Influenza vaccination Influenza Vacc ine (#1) [facility] Start: 10-26-2024 Bacteria identified in Urine by Culture Urine Culture [facility] Start: 10-26-2024 End: 10-26-2024 Urine culture [facility] Start: 10-11-2024 Urine culture [facility] Start: 09-24-2024 End: 09-24-2024 Patient encounter procedure 09/24/2024 8:40 AM EDT Office Visit [facility] [address] [facility] [address] [place] [id number] Kenneth Tavera DPM [address] [address] Diabetes mellitus due to underlying condition with [...] feet; Xerosis cutis Start: 08-27-2024 Urine culture [facility] Start: 07-27-2024 Patient referral [facility] Work Phone: Start: 07-14-2024 Patient referral [facility] Work Phone: Start: 07-07-2024 Urine culture [facility] Start: 06-11-2024 End: 06-11-2024 Patient encounter procedure 06/11/2024 11:50 AM EDT Office Visit [facility] [address] [facility] [address] [place] [address] Kenneth Tavera DPM [address] [address] [facility] Start: 04-02-2024 End: 04-02-2024 Patient encounter procedure [facility] Comment on above: 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, without long-term current use of insulin (CMS/HCC) (Primary Dx); Pain due to onychomycosis of toenails of both feet Start: 01-23-2024 End: 01-23-2024 Patient encounter procedure 01/23/2024 11:30 AM EDT Office Visit [facility] [address] [facility] [address] [place] [address] Kenneth Tavera DPM [address] [address] Diabetes mellitus due to underlying condition with [...] feet Start: 10-26-2023 DIABETES SCREEN DIABETES SCREEN [facility] Start: 10-17-2023 Patient referral [facility] Work Phone: Start: 08-16-2023 Screening for malign ant neoplasm of colon FIT-DNA [facility] Start: 01-17-2022 [facility] Start: 01-17-2022 Radionuclide myocard ial perfusion stress study NM rachel perf SPECT rest & str [facility] Start: 01-17-2022 Referral to cardiac rehabilitation program [facility] Start: 01-16-2022 Hospital admission [facility] Start: 01-15-2022 Hospital admission [facility] Start: 11-30-2021 Influenza vaccination INFLUENZA (#1) [facility] Start: 10-24-2021 End: 12-24-2021 CBC W Auto Differential panel - Blood CBC + DIFF Lab Routine Monoclonal gammopathy Expected: 10/24/2021, Expires: 12/24/2021 [facility] Work Phone: Comment on above: Expected: 10/24/2021 , Expires: 12/24/2021 Start: 04-25-2021 Adult depression screening assessment DEPRESSION SCREENING [facility] Start: 04-01-2021 ADVANCE DIRECTIVE DISCUSSION ADVANCE DIRECTIVE DISCUSSION [facility] Start: 11-21-2020 COVID-19 VACCINE (3 - Booster for Pfizer series) COVID-19 VACCINE (3 - Booster for Pfizer series) [facility] Start: 11-07-2001 SHINGRIX VACCINE (1 of 2) SHINGRIX VACCINE (1 of 2) [facility] Start: 11-07-1996 COLOGUARD (FIT-DNA) COLOGUARD (FIT-D NA) [facility] Start: 11-07-1996 Colonoscopy COLONOSCOPY [facility] Start: 11-07-1996 COLORECTAL CANCER SCREENING COLORECTAL CANCER SCREENING [facility] Start: 11-07-[address] COLONOGRAPHY [facility] Start: 11-07-1996 FECAL OCCULT BLOOD FECAL OCCULT BLOO D [facility] Start: 11-07-1996 [facility] Start: 11-07-1986 LIPID SCREEN LIPID SCREEN [facility] Start: 11-07-1970 Urine microalbumin profile DTAP,TDAP,TD (1 - Tdap) [facility] Start: 11-07-1969 HEPATITIS C SCREENING HEPATITIS C SC APURVA [facility] Start: 1950 ABDOMINAL AORTIC ANEURYSM SCREENING ABDOMINAL AORTIC ANEURYSM SCREENING [facility] Start: 1950 Screening for malign ant neoplasm of colon [facility] Comprehensive metabo lic 2000 panel - Serum or Plasma [facility] Comprehensive metabo lic 1999 panel - Serum or Plasma [facility] CT Abdomen and Pelvi s WO contrast [facility] CT Abdomen and Pelvi s WO contrast [facility] Patient Education [facility] Work Phone: Patient referral [facility] Work Phone: Renal function 1999 panel - Serum or Plasma [facility] Renal function 1999 panel - Serum or Plasma [facility] Renal function 1999 panel - Serum or Plasma [facility] Urine culture [facility] Immunizations Immunization Date Immunization Notes Care Provider Poli patel 12-01-2024 influenza, high dose seasonal, preservative-free Harley Ball DO Work Phone: [facility] 12-01-2024 influenza virus vaccine, unspecified formulation Kenneth Tavera DPM Work Phone: [facility] 12-12-2023 influenza virus vaccine, unspecified formulation Jason LARKIN [facility] 12-12-2023 influenza, high dose seasonal, preservative-free [facility] 12-13-2022 influenza, high dose seasonal, preservative-free Denita Chairez Other [facility] Other 12-13-2022 influenza virus vaccine, unspecified formulation DO Harley Ball Work Phone: [facility] 12-15-2021 Influenza vaccine, quadrivalent, adjuvanted Harley Ball DO Work Phone: [facility] 12-15-2021 influenza virus vaccine, unspecified formulation DO Harley Ball Work Phone: [facility] 12-15-2021 influenza, high dose seasonal, preservative-free Harley Crespo Other [facility] Other 02-21-2021 COVID-19 mRNA, Comirnaty (Pfizer) DO Harley Crespo Work Phone: [facility] 06-21-2020 COVID-19 Vaccine Pfi zer - Documentation Purposes Only Tondra Mapus Other [facility] 05-30-2020 COVID-19 Vaccine Pfi zer - Documentation Purposes Only Tondra Mapus Other [facility] 01-17-2018 influenza virus vaccine, unspecified formulation Jason LARKIN [facility] 01-17-2018 pneumococcal polysaccharide vaccine, 23 valshelly Walker MD Work Phone: [facility] 01-17-2018 Seasonal trivalent influenza vaccine, adjuvanted, preservative free Abdon Walker MD Work Phone: [facility] 01-16-2017 influenza virus vaccine, unspecified formulation Jason LARKIN [facility] 01-16-2017 influenza, high dose seasonal, preservative-free Abdon Walker MD Work Phone: [facility] 11-30-2016 influenza virus vaccine, unspecified formulation Jason LARKIN [facility] 11-30-2016 influenza, injectabl e, quadrivalent, preservative free Abdon Walker MD Work Phone: [facility] 11-14-2016 pneumococcal conjuga te vaccine, 13 valent Abdon Walker MD Work Phone: [facility] 04-02-2016 pneumococcal polysaccharide vaccine, 23 valent Tondra Mapus Other [facility] 01-23-2012 influenza virus vaccine, unspecified formulation Jason LARKIN [facility] 01-23-2012 influenza, seasonal, injectable Abdon Walker MD Work Phone: [facility] 12-13-2010 influenza virus vaccine, unspecified formulation Jason LARKIN [facility] 12-13-2010 influenza, seasonal, injectable Abdon Walker MD Work Phone: [facility] 01-27-2009 novel [id number], preservative-free, injectable Abdon Walker MD Work Phone: [facility] 01-19-2008 influenza virus vaccine, whole virus Abdon Walker MD Work Phone: [facility] 01-19-2008 influenza, whole Jason EZ HERNANDES [facility] Payers Date Payer Category Payer Self-pay [id number] 2021 Unknown [id number] 2021 Private Health Insurance [id number] 2019 Unknown MMO MMO MEDICARE SUPPLEMENT [id number] 2019-Present [phone] [address] [place] [address] Indemnity [id number]. [id number] 2016 Medicare MEDICARE MEDICAR E A AND B [id number] 2016-Present [phone] [address] [address] [place] [address] Medicare [id number]. [id number] 2016 Medicare [id number]. 1.13.693.2. [id number] 1959 Medicare [id number] 1959 Unknown [id number] 2.16.840.1.199580.19 1951 Unknown [id number] 2.16.840.1.976639.3.579.2. 647 1951 Unknown [id number] 2.16.840.1.103705.3.579.2. 647 1951 Unknown [id number] 2.16.840.1.797520.3.579.2. 593 1951 Unknown [id number] 2.16.840.1.469034.3.579.2. 593 1951 Unknown [id number] 2.16.840.1.783371.3.579.2. 593 1951 Unknown [id number] 2.16.840.1.057399.3.579.2. 593 1951 Unknown [id number] 2.16.840.1.329740.3.579.2. 593 1951 Unknown [id number] 2.16.840.1.640409.3.579.2. 593 1951 Unknown [id number] 2.16.840.1.937966.3.579.2. 593 1951 Unknown [id number] 2.16.840.1.093349.3.579.2. 593 1951 Unknown [id number] 2.16.840.1.725712.3.579.2. 593 1951 Unknown [id number] 2.16.840.1.282471.3.579.2. 593 1951 Unknown [id number] 2.16.840.1.777345.3.579.2. 593 1951 Unknown [id number] 2.16.840.1.950693.3.579.2. 593 1951 Unknown [id number] 2.16.840.1.342870.3.579.2. 593 1951 Unknown [id number] 2.16.840.1.506370.3.579.2. 593 1951 Unknown [id number] 2.16.840.1.408928.3.579.2. 593 1951 Unknown [id number] 2.16.840.1.229414.3.579.2. 593 1951 Unknown [id number] 2.16.840.1.838941.3.579.2. 593 1951 Unknown [id number] 2.16.840.1.977901.3.579.2. 593 1951 Unknown [id number] 2.16.840.1.188119.3.579.2. 727 1951 Unknown [id number] 2.16.840.1.375165.3.579.2. 727 1951 Unknown [id number] 2.16.840.1.297433.3.579.2. 727 1951 Unknown [id number] 2.16.840.1.804953.3.579.2. 1259 1951 Unknown [id number] 2.16.840.1.812551.3.579.2. 1259 1951 Unknown [id number] 2.16.840.1.593952.3.579.2. 1259 1951 Unknown [id number] 2.16.840.1.671493.3.579.2. 1259 1951 Unknown [id number] 2.16.840.1.647454.3.579.2. 1259 1951 Unknown [id number] 2.16.840.1.136057.3.579.2. 72 1951 Unknown [id number] 2.16.840.1.521850.3.579.2. 727 1951 Unknown [id number] 2..840.1.784723.3.579.2. 1951 Unknown [id number] 2.16.840.1.308019.3.579.2. 72 1951 Unknown [id number] 2..840.1.751772.3.579.2. 1951 Unknown [id number] 2.840.1.411432.3.579.2. 1951 Unknown [id number] .0.1.445080.3.579.2 Unknown [id number] Unknown HCAP/HFA/FAP Active [id number] Unknown HCAP/HFA/FAP Active [id number] Unknown [id number] 2.840.1.373106.3.579.2. 531 Unknown [id number] 05.17.830.1.379832.3.579.2. 531 Unknown [id number] 2.840.1.377988.3.579.2. 531 Unknown [id number] 2.840.1.099377.3.579.2. 531 Unknown [id number] 2.840.1.372115.3.579.2. 531 Unknown [id number] 2.840.1.263417.3.579.2. 531 Unknown [id number] 2.840.1.050119.3.579.2. 531 Social History Date Type Detail Facility Unknown if ever smoked [facility] Other Start: 11-07-2023 End: 09-24-2024 Sex Assigned At [facility] Other Start: 09-29-2021 End: 11-23-2024 Tobacco smoking status Ex-smoker (finding) [facility] [place] Tobacco smoking status Never [facility] Start: 07-23-2018 End: 10-12-2022 Tobacco use and exposure Smokeless tobacco non-user [facility] Start: 10-25-2020 Alcohol intake Ex-drinker (finding) [facility] Start: 1950 Sex Assigned At Not on file C [facility] Start: 1950 Sex Assigned At Male F [facility] Start: 10-12-2022 [facility] Start: 11-07-2023 End: 12-03-2024 Alcoholic beverage intake [facility] Start: 11-07-2023 End: 09-24-2024 History of Social function [facility] Start: 05-28-2012 End: 04-30-2024 Sex Male (finding) [facility] Sexual Orientation [facility] Medical Equipment Procedure Code Equipment Code [...] X 15 FDA Start: 07-12-2020 CL STENT CD 2. 0 X 15 FDA Start: 07-12-2020 [...] Assessment Result Facility 08-04-2024 Functional Status N/A [facility] 01-17-2022 Functional status Patient at Baseline [facility] Work Phone: 09-29-2021 Functional Status N/A [facility] Mental Status Date Assessment Result Facility 01-17-2022 Cognitive function Cognitive Sta tus Patient at Baseline [facility] Work Phone: Clinical Notes 01-03-2021 to 12-18-2024 Kenneth Tavera DPM - 12/03/2024 8:30 AM EDT Note Date & Type Note Facility 12-18-2024 Hospital Discharge instructions Patient Education 12/18/2024 10:21:40 Urinary Tract Infection, Adult Urinary Tract Infection, Adult A urinary tract infection (UTI) is an infection of any part of the urinary tract. The urinary tract includes the kidneys, ureters, bladder, and urethra. These organs make, store, and get rid of urine in the body. An upper UTI affects the ureters and kidneys. A lower UTI affects the bladder and urethra. What are the causes? Most urinary tract infections are caused by bacteria in your genital area around your urethra, where urine leaves your body. These bacteria grow and cause inflammation of your urinary tract. What increases the risk? You are more likely to develop this condition if: You have a urinary catheter that stays in place. You are not able to control when you urinate or have a bowel movement (incontinence). You are female and you: ?Use a spermicide or diaphragm for control. ?Have low estrogen levels. ?Are . You have certain genes that increase your risk. You are sexually active. You take antibiotic medicines. You have a condition that causes your flow of urine to slow down, such as: ?An enlarged prostate, if you are male. ?Blockage in your urethra. ?A kidney stone. ?A nerve condition that affects your bladder control (neurogenic bladder). ?Not getting enough to drink, or not urinating often. You have certain medical conditions, such as: ?Diabetes. ?A weak disease-fighting system (immunesystem). ?Sickle cell disease. ?Gout. ?Spinal cord injury. What are the signs or symptoms? Symptoms of this condition include: Needing to urinate right away (urgency). Frequent urination. This may include small amounts of urine each time you urinate. Pain or burning with urination. Blood in the urine. Urine that smells bad or unusual. Trouble urinating. Cloudy urine. Vaginal discharge, if you are female. Pain in the abdomen or the lower back. You may also have: Vomiting or a decreased appetite. Confusion. Irritability or tiredness. A fever or chills. Diarrhea. The first symptom in older adults may be confusion. In some cases, they may not have any symptoms until the infection has worsened. How is this diagnosed? This condition is diagnosed based on your medical history and a physical exam. You may also have other tests, including: Urine tests. Blood tests. Tests for STIs (sexually transmitted infections). If you have had more than one UTI, a cystoscopy or imaging studies may be done to determine the cause of the infections. How is this treated? Treatment for this condition includes: Antibiotic medicine. Mknm-ubr-jnldwgl medicines to treat discomfort. Drinking enough water to stay hydrated. If you have frequent infections or have other conditions such as a kidney stone, you may need to see a health care provider who specializes in the urinary tract (urologist). In rare cases, urinary tract infections can cause sepsis. Sepsis is a life-threatening condition that occurs when the body responds to an infection. Sepsis is treated in the hospital with IV antibiotics, fluids, and other medicines. Follow these instructions at home: Medicines Take ybge-iug-tcehukg and prescription medicines only as told by your health care provider. If you were prescribed an antibiotic medicine, take it as told by your health care provider. Do not stop using the antibiotic even if you start to feel better. General instructions Make sure you: ?Empty your bladder often and completely. Do not hold urine for long periods of time. ?Empty your bladder after sex. ?Wipe from front to back after urinating or having a bowel movement if you are female. Use each tissue only one time when you wipe. Drink enough fluid to keep your urine pale yellow. Keep all follow-up visits. This is important. Contact a health care provider if: Your symptoms do not get better after 1 2 days. Your symptoms go away and then return. Get help right away if: You have severe pain in your back or your lower abdomen. You have a fever or chills. You have nausea or vomiting. Summary A urinary tract infection (UTI) is an infection of any part of the urinary tract, which includes the kidneys, ureters, bladder, and urethra. Most urinary tract infections are caused by bacteria in your genital area. Treatment for this condition often includes antibiotic medicines. If you were prescribed an antibiotic medicine, take it as told by your health care provider. Do not stop using the antibiotic even if you start to feel better. Keep all follow-up visits. This is important. This information is not intended to replace advice given to you by your health care provider. Make sure you discuss any questions you have with your health care provider. Document Revised: 10/23/2020 Document Reviewed: 10/28/2020 [employer] Patient Education 2023 [employer] Follow Up Care 11/23/2024 13:55:58 With:CHAYA LEMUS, Jason Sanchez, URL Address: [address] [place] [address] [place] [address]- When: Unknown [facility] 12-18-2024 Note Patient Education Obstetrics and Gynecology Urinary Tract Infection, Adult A urinary tract infection (UTI) is an infection of any part of the urinary tract. The urinary tract includes the kidneys, ureters, bladder, and urethra. These organs make, store, and get rid of urine in the body. An upper UTI affects the ureters and kidneys. A lower UTI affects the bladder and urethra. What are the causes? Most urinary tract infections are caused by bacteria in your genital area around your urethra, where urine leaves your body. These bacteria grow and cause inflammation of your urinary tract. What increases the risk? You are more likely to develop this condition if: ??? You have a urinary catheter that stays in place. ??? You are not able to control when you urinate or have a bowel movement (incontinence). ??? You are female and you: ? Use a spermicide or diaphragm for control. ? Have low estrogen levels. ? Are . ??? You have certain genes that increase your risk. ??? You are sexually active. ??? You take antibiotic medicines. ??? You have a condition that causes your flow of urine to slow down, such as: ? An enlarged prostate, if you are male. ? Blockage in your urethra. ? A kidney stone. ? A nerve condition that affects your bladder control (neurogenic bladder). ? Not getting enough to drink, or not urinating often. ??? You have certain medical conditions, such as: ? Diabetes. ? A weak disease-fighting system (immunesystem). ? Sickle cell disease. ? Gout. ? Spinal cord injury. What are the signs or symptoms? Symptoms of this condition include: ??? Needing to urinate right away (urgency). ??? Frequent urination. This may include small amounts of urine each time you urinate. ??? Pain or burning with urination. ??? Blood in the urine. ??? Urine that smells bad or unusual. ??? Trouble urinating. ??? Cloudy urine. ??? Vaginal discharge, if you are female. ??? Pain in the abdomen or the lower back. You may also have: ??? Vomiting or a decreased appetite. ??? Confusion. ??? Irritability or tiredness. ??? A fever or chills. ??? Diarrhea. The first symptom in older adults may be confusion. In some cases, they may not have any symptoms until the infection has worsened. How is this diagnosed? This condition is diagnosed based on your medical history and a physical exam. You may also have other tests, including: ??? Urine tests. ??? Blood tests. ??? Tests for STIs (sexually transmitted infections). If you have had more than one UTI, a cystoscopy or imaging studies may be done to determine the cause of the infections. How is this treated? Treatment for this condition includes: ??? Antibiotic medicine. ??? Djnu-fbs-yazszvs medicines to treat discomfort. ??? Drinking enough water to stay hydrated. If you have frequent infections or have other conditions such as a kidney stone, you may need to see a health care provider who specializes in the urinary tract (urologist). In rare cases, urinary tract infections can cause sepsis. Sepsis is a life-threatening condition that occurs when the body responds to an infection. Sepsis is treated in the hospital with IV antibiotics, fluids, and other medicines. Follow these instructions at home: Medicines ??? Take dpow-fio-zqnjqpv and prescription medicines only as told by your health care provider. ??? If you were prescribed an antibiotic medicine, take it as told by your health care provider. Do not stop using the antibiotic even if you start to feel better. General instructions ??? Make sure you: ? Empty your bladder often and completely. Do not hold urine for long periods of time. ? Empty your bladder after sex. ? Wipe from front to back after urinating or having a bowel movement if you are female. Use each tissue only one time when you wipe. ??? Drink enough fluid to keep your urine pale yellow. ??? Keep all follow-up visits. This is important. Contact a health care provider if: ??? Your symptoms do not get better after 1?2 days. ??? Your symptoms go away and then return. Get help right away if: ??? You have severe pain in your back or your lower abdomen. ??? You have a fever or chills. ??? You have nausea or vomiting. Summary ??? A urinary tract infection (UTI) is an infection of any part of the urinary tract, which includes the kidneys, ureters, bladder, and urethra. ??? Most urinary tract infections are caused by bacteria in your genital area. ??? Treatment for this condition often includes antibiotic medicines. ??? If you were prescribed an antibiotic medicine, take it as told by your health care provider. Do not stop using the antibiotic even if you start to feel better. ??? Keep all follow-up visits. This is important. This information is not intended to replace advice given to you by your health care provider. Make sure you di (more content not included)... [facility] 12-03-2024 History of Present illness Narrative Patient: Lani Lizama : 1950 PCP: DO TAHIRA Castillo This is a 74 y.o. male that presents today with a [...] Date Diabetic retinopathy (HCC) HTN (hypertension) Hypercholesteremia [place] (myocardial infarction) (HCC) 2021 Two total: 02/20, [...] in the morning., Disp: , Rfl: HYDROcodone-acetaminophen ([place]) 5-325 MG tablet, TAKE 1 TABLET BY [...] Strain: Low Risk (08/13/2024) Received from [facility] Overall Financial Resource Strain (CARDIA) Difficulty of Paying Living Expenses: Not hard at all Food Insecurity: No Food Insecurity (08/13/2024) Received from [facility] Hunger Vital Sign Within the past 12 months, you worried that your food would run out before you got the money to buy more.: Never true Ran Out of Food in the Last Year: Not on file Transportation Needs: No Transportation Needs (08/13/2024) Received from [facility] Transportation In the past 12 months, has lack of transportation kept you from medical appointments or from getting medications?: No Lack of Transportation (Non-Medical): Not on file Physical Activity: Not on file Stress: Not on file Social Connections: Not on file Intimate Partner Violence: Unknown (08/13/2024) Received from [facility] Humiliation, Afraid, Rape, and Kick questionnaire Fear of Current or Ex-Partner: No Emotionally Abused: Not on file Physically Abused: Not on file Sexually Abused: Not on file Housing Stability: Low Risk (08/13/2024) Received from [facility] Housing Stability Vital Sign In the last 12 months, was there a time when you were not able to pay the mortgage or rent on time?: No Number of Times Moved in the Last Year: Not on file At any time in the past 12 months, were you homeless or living in a long term (including now)?: No ROS: General: denies fever, [...] and negative PT pedal pulses NEURO: 5.07 Woodruff Chun monofilament test diminished to digits and [...] Kenneth Tavera DPM documented in this encounter [facility] 11-23-2024 Hospital Discharge instructions Patient Education 11/23/2024 [...] your health care provider. General instructions Take fzzy-xna-qbpdzsd and prescription medicines only as told by [...] provider. Document Revised: 12/05/2020 Document Reviewed: 12/05/2020 [employer] Patient Education 2023 [place]. 11/23/2024 13:42:32 Bladder Cancer Bladder Cancer Bladder [...] cells. Follow these instructions at home: Take tfar-hcr-torhsvv and prescription medicines only as told by [...] is important. Where to find more information [employer] (ACS): cancer.org National Cancer [place] (NCI): cancer.gov Contact a health care provider [...] provider. Document Revised: 02/26/2022 Document Reviewed: 02/26/2022 [employer] Patient Education 2023 [place]. Follow Up Care 11/13/2024 09:03:29 With:CHAYA LEMUS, Jason Sanchez, URL Address: [address] [place] [address] [place] [address] When: Unknown Comments:4 wks (new med) [facility] [place] 11-23-2024 Note Patient Education Obstetrics and Gynecology [...] health care provider. General instructions ??? Take onkf-gbv-tkxdixv and prescription medicines only as told by [...] drink, and whe (more content not included)... [facility] 11-11-2024 Note Patient: Lani Mota Re ed Procedure Summary Date: 11/11/24 [facility] / [facility] / [facility] Operating Room Anesthesia Start: 857 Anesthesia Stop: 1021 Procedure: TURBT (TRANSURETHRAL RESECTION OF BLADDER TUMOR) Diagnosis: Malignant neoplasm of urinary bladder, unspecified site (CMS/HCC) (Malignant neoplasm of urinary bladder, unspecified site (CMS/HCC) [C67.9]) Surgeons: Last Miles MD Responsible Provider: Xavier Ulrich MD Anesthesia [...] per anesthesia protocol. No notable events documented. [facility] 11-11-2024 Note H&P reviewed. The jaron mark was examined and there are no changes to the H&P. [facility] 11-11-2024 Note Patient: Lani Mota Re ed Procedure Information Date/Time: 11/11/24 0830 Procedure: TURBT (TRANSURETHRAL RESECTION OF BLADDER TUMOR) [facility] / [facility] Operating Room Surgeons: Last Miles MD Relevant Problems Cardio (+) AV block, 3rd degree (CMS/HCC) (third-degree AV block status post PPM) (+) Angina at rest (+) Carotid stenosis, asymptomatic (+) Coronary artery disease involving zuni coronary artery of zuni heart (CABG x 5, PCI to SVG-PDA [...] QT Interval 424 QTC CALCULATION(BAZETT) 507 P Croswell 37 R-Croswell -56 T Wave Croswell 114 Impression Atrial-sensed ventricular-paced rhythm Biventricular pacemaker detected Abnormal ECG When compared with ECG of 13-FEB-2024 04:45, Vent. rate has increased BY 9 BPM Confirmed by Kevin Arteaga ([id number]) on 08/13/2024 9:47:29 PM Complete Echo (TTE) w/wo Imaging Agent, Strain, 3D, Bubble Study Result Date: 08/14/2024 1 1 [facility] Heart [facility] [address] [place] [address] [phone] (fax) [facility]ocardi[facility] Name: LANI LIZAMA Study Date: 08/14/2024 08:33 AM B/P: 118 mmHg/75 mmHg HR: 75 bpm Date of : 1950 [facility] Height: 67 in. Age: 73 year(s) Patient [...] measurable tricuspid regurgit (more content not included)... [facility] 10-27-2024 Evaluation note Diagnosis Onset Date Resolution [...] November 10, 2024 9:22am BMI 28.0-28.9,adult inactive 2024 9:22am DM2 (diabetes mellitus, type 2) deleted November 10 9:22am HLD (hyperlipidemia) deleted 2024 9:22am Anemia acute December 01, 2024 8:48am Chronic HFrEF (heart failure with reduced ejection fraction) acute November 8:48am Chronic kidney disease acute pt2024 8:48am HTN (hypertension) acute 2024 8:48am Hypercholesterolemia acute Nov 8:48am Ischemic cardiomyopathy acute S eptemb2024 8:48am Medicare annual wellness visit, subsequent acute December 01, 2024 8:48am Polyuria acute December 01, 2024 8:48am Transitional cell bladder cancer acute December 01, 2024 8:48am Type 2 diabetes mellitus with diabetic peripheral angiopathy without gangrene acute Nov 8:48am Type 2 diabetes mellitus with hyperglycemia acute November 8:48am [facility] Work Phone: 1(790) 424-369607-10-2025 [facility] Note Chief Complaint: Patient here for 2 month follow up . Patient states he has been feeling rough. Patient states he had and [place] in July then diagnosed with cancer in [...] mildly elevated troponin. [facility] and treatment. Of note, [...] (Plavix) 75 mg tablet, (more content not included)...[facility]07-08-2025 NotePatient was here today for a void [...] or go to the ER. Patient verbalized understanding.[facility]07-01-2025 NotePatient: Lani Lizama Procedure Summary Date: 09/29/24 [facility] / [facility] / [facility] Operating Room Anesthesia Start: 1337 Anesthesia Stop: 1500 Procedure: TURBT (TRANSURETHRAL RESECTION OF BLADDER TUMOR) Diagnosis: Lesion of bladder (Lesion of bladder [N32.9]) Surgeons: Last Miles MD Responsible Provider: Dorcas Dang MD Anesthesia [...] were no known notable events for this encounter.[facility]07-01-2025 NoteSatisfactory for evaluation. Examination of the ThinPrep slide reveals atypical cells, urothelial cells, abundant acute inflammation, blood, fungal spores consistent with Coretta species and debris. [facility]Order Comment: Pre-op diagnosis:Lesion of bladder [N32.9]Performed By: #### LAB13 ####[facility] ([facility])[address] [place], [place] [id number] NoteSpinal Block Patient location during procedure: OR Start time: 09/29/2024 1:45 PM End time: 09/29/2024 1:55 PM Reason for block: primary anesthetic Staffing Performed: resident/ADMINISTRATIVE SERVICES MANAGER/CAA Anesthesiologist: Dorcas Dang MD Resident/ADMINISTRATIVE SERVICES MANAGER: Mirela Devlin MD Performed by: Mirela Devlin MD Authorized by: Dorcsa Dang MD Preanesthetic Checklist Completed: patient identified, [...] patient tolerated procedure well with no immediate complicationsUnZanesville City Hospital07-01-2025 NotePatient: Lani Lizama Procedure Information Date/Time: 09/29/24 1230 Procedure: TURBT (TRANSURETHRAL RESECTION OF BLADDER TUMOR) [facility] / [facility] Operating Room Surgeons: Last Miles MD Relevant Problems Cardio (+) AV block, 3rd degree (CMS/HCC) (+) Angina at rest (+) Carotid stenosis, asymptomatic (+) Coronary artery disease involving zuni coronary artery of zuni heart (+) Essential hypertension (+) NSTEMI (non-ST elevated myocardial infarction) (CMS/HCC) (+) Stenosis of abdominal aorta Endo (+) Type 1 diabetes mellitus (CMS/HCC) (+) Type 2 diabetes mellitus with hyperglycemia ([facility]HCC) (+) Type 2 diabetes mellitus without complication, with long-term current use of insulin ([facility]) GI (+) Gastroesophageal reflux disease /Renal (+) Chronic kidney disease Circulatory (+) HFrEF (heart failure with reduced ejection fraction) ([facility]) (+) History of coronary artery bypass surgery Clinical information reviewed: Allergies Meds Med Hx Surg Hx Surgical History[1] Medical History[2] Medication Documentation Review Audit Reviewed by Judy vAila RN (Registered Nurse) on 09/29/24 at 1059 Medication Order Taking? Sig Documenting Provider Last Dose Status ALPRAZolam (Xanax) 0.5 mg tablet [id number] Yes Take 1 tablet by mouth in the morning, afternoon, and at bedtime. Historical Provider, 09/29/2024 Active amLODIPine (Norvasc) 5 mg tablet [id number] Yes Take 1 tablet (5 mg) by mouth in the morning. Pinky Bishop MD 09/29/2024 Active aspirin 81 mg chewable tablet [id number] Yes Chew 1 tablet every day by oral route. Historical Provider, Past Week Active cholecalciferol (Vitamin D3) 25 MCG (1000 units) tablet [id number] Yes Take 1,000 Units by mouth in the morning. Racquel ProviderMD 09/28/2024 Active clopidogrel (Plavix) 75 mg tablet [id number] Yes Take 1 tablet by mouth in the morning. Historical Provider, Past Week Active docusate sodium (Colace) 100 mg capsule [id number] Yes Take 100 mg by mouth in the morning. Historical ProviderMD 09/28/2024 Active empagliflozin (Jardiance) 10 mg [id number] Yes Take 1 tablet every day by oral route. Historical ProviderMD 09/29/2024 Active insulin aspart (NovoLOG) 100 unit/mL injection vial [id number] Yes Inject 10 Units under the skin with breakfast, with lunch, and with evening meal. Sliding scale Racquel Marcelo MD 09/28/2024 Active insulin degludec (TRESIBA FLEXTOUCH U-100 SUBQ) [id number] Yes Inject 15 Units under the skin in the morning. Historical ProviderMD 09/29/2024 Active insulin detemir (Levemir) 100 unit/mL injection [id number] Yes Inject 5 Units under the skin two times daily. SLIDING SCALE Racquel ProviderMD 09/29/2024 Active isosorbide mononitrate ER (Imdur) 60 mg 24 hr tablet [id number] Take 1 tablet (60 mg) by mouth 2 times daily. Carlos A Duarte MD 08/20/242358 levoFLOXacin (Levaquin) 250 mg tablet [id number] Yes Historical ProviderMD 09/29/2024 Active metoprolol succinate XL (Toprol-XL) 50 mg 24 hr tablet [id number] Take 3 tablets (150 mg) by mouth in the morning for 97 doses. Do not crush or chew. Aramis Sellers MD 08/20/242358 nitroglycerin (Nitrostat) 0.4 mg SL tablet [id number] No PLACE 1 TABLET UNDER TONGUE EVERY 5 MINS, UP TO 3 DOSES NEEDED FOR CHEST PAIN Patient not taking: Reported on 09/29/2024 Pinky Bishop MD More than a month Active pantoprazole (ProtoNix) 40 mg EC tablet [id number] Yes TAKE 1 TABLET BY MOUTH DAILY ON AN EMPTY STOMACH FOLLOWED BY BREAKFAST 30 MINUTES AFTER Historical Provider, 09/29/2024 Active ranolazine (Ranexa) 500 mg 12 hr tablet [id number] Yes Take 1 tablet (500 mg) by mouth two times daily. Do not crush, chew, or split. Pikny Bishop MD 09/29/2024 Active rosuvastatin (Crestor) 40 mg tablet [id number] Yes TAKE 1 TABLET BY MOUTH AT BEDTIME Kevin Arteaga MD 09/29/2024 Active spironolactone (Aldactone) 25 mg tablet [id number] Yes Take 1 tablet (25 mg) by mouth in the morning. Pinky Bishop MD 09/29/2024 Active thiamine (Vitamin B-1) 100 mg tablet [id number] Yes Take 100 mg by mouth every other day. Historical Provider, 09/28/2024 Active thiamine (Vitamin B-1) 250 mg tablet [id number] Yes Take 250 mg by mouth every [...] 1.17 (H) 02/13/2024 INR (more content not included)...[facility]07-01-2025 NoteH&P reviewed. The patient was examined and there are no changes to the H&P. [facility]06-26-2025 History of Present illness Narrative* Kenneth Tavera, [...] Date Diabetic retinopathy (HCC) HTN (hypertension) Hypercholesteremia [place] (my[place] infarction) (HCC) 2021 Two total: 02/20, [...] in the morning., Disp: , Rfl: HYDROcodone-acetaminophen ([place]) 5-325 MG tablet, TAKE 1 TABLET BY [...] Strain: Low Risk (08/13/2024) Received from [facility] Overall Financial Resource Strain (CARDIA) Difficulty of Paying Living Expenses: Not hard at all Food Insecurity: No Food Insecurity (08/13/2024) Received from [facility] Hunger Vital Sign Within the past 12 months, you worried that your food would run out before you got the money to buymore.: Never true Ran Out of Food in the Last Year: Not on file Transportation Needs: No Transportation Needs (08/13/2024) Received from [facility] Transportation In the past 12 months, has lack of transportation kept you from medical appointments or from getting medications?: No Lack of Transportation (Non-Medical): Not on file Physical Activity: Not on file Stress: Not on file Social Connections: Not on file Intimate Partner Violence: Unknown (08/13/2024) Received from [facility] Humiliation, Afraid, Rape, and Kick questionnaire Fear of Current or Ex-Partner: No Emotionally Abused: Not on file Physically Abused: Not on file Sexually Abused: Not on file Housing Stability: Low Risk (08/13/2024) Received from [facility] Housing Stability Vital Sign In the last 12 months, was there a time when you were not able to pay the mortgage or rent on time?: No Number of Times Moved in the Last Year: Not on file At any time in the past 12 months, were you homeless or living in a long term (including now)?: No ROS: General: denies fever, [...] and negative PT pedal pulses NEURO: 5.07 Woodruff Chun monofilament test diminished to digits and [...] him Kenneth Tavera DPM documented in this encounterLake [facility] Health [id number] NoteUnKettering Health [facility] CONSULTATION Reason for [...] significant pain. He was therefore referred to [place] [facility] where he underwent a cystoscopy with [...] Transportation Needs: No Tr (more content not included)...[facility]05-27-2025 Evaluation note* Diagnosis Onset Date Resolution Status [...] November 10, 2024 9:22am HLD (hyperlipidemia) deleted st 2024 9:22am Scab deleted November 10, 025 9:22am [facility] Work Phone: 1(328) 111-113005-22-2025 NoteB[facility] Note Chief Complaint: Patient here for [facility] an [place] and bladder surgery clearance. Patient states he [...] mildly elevated troponin. [facility] was [facility] and treatment. Of note, [...] Disp: , Rfl: isosor (more content not included)...[facility] 08-14-2024 NoteHospital Medicine Discharge Summary Final Discharge [...] mildly elevated troponin. [facility] and treatment. Of note, [...] Center 08/20/2024 9:45 AM Pinky Bishop MD [facility] 08/28/2024 8:30 AM Last Miles MD [facility] U[facility] Second Fl Your medication list START [...] Medications These medications were sent to [facility] - [place], [place] - [address] [place] [address] [place] [address], [facility] [address] amLODIPine 5 mg tablet Lani has No Known Allergies. Disposition: Home or Self Care () Discharge Condition: Stable Code Status: Prior Diagnostic Results Hematology: Results from last 7 days Lab Units 08/13/24 1421 WBC AUTO 10*3/uL 7.62 HEMOGLOBIN g/dL 13.1 HEMATOCRIT % 39.8 MCV fL 89.0 PLATELETS AUTO 10*3/uL 201 Chemistry: Results from last 7 days Lab Units (more content not included)...[facility]05-16-2025 NoteAdult Nutrition Assessment: Name: Lani Lizama Date: [...] of Nutrition and Dietetics (AND) and the [place] Society of Enteral and Parenteral Nutrition (ASPEN). [...] difference between simp (more content not included)... [facility]05-16-2025 Note08/14/24 1204 Admission Assessment Questions Verify insurance [...] Status Interested Does the patient have a major case detective assigned to them through their insurance? No [...] able to send link and activate MyChart? [facility]05-16-2025 Note Attestation signed by Tatianna Hayward MD [...] see Dr. Bishop, do cardiac rehab at [place] and if he has uncontrolled chest pain [...] No edema. Left lower (more content not included)...[facility] 08-13-2024 NoteRecent cystoscopy follows urology CODE STATUS full codeUnZanesville City Hospital05-15-2025 NoteOn antiplatelet agent watch for hematuria and followUnZanesville City Hospital05-15-2025 NoteAs aboveUnZanesville City Hospital05-15-2025 Note Insulin blood sugar check dietUnZanesville City Hospital05-15-2025 Note Avoid hypovolemia and nephrotoxic meds hold lisinopril since patient on Aldactone watch potassium electrolyte creatinine renal function consider nephrology consultUnZanesville City Hospital05-15-2025 NoteDecongestive breath/guideline directed medical therapy limited because of renal function watch creatinine electrolytes especially potassium intake and output [facility]05-15-2025 NoteChest pain-free, cycle troponin telemetry continue statin aspirin nitrates beta-jason watch for hypotension and bradycardia cardiology to see patient [facility]05-15-2025 NoteHospital Medicine History and Physical 08/13/2024 1:16 PM THE HOSPITALIST TEAM PREFERS TO USE 1CLICK CHAT FOR NON-URGENT COMMUNICATION 7AM-7PM. IF I DO NOT RESPOND WITHIN 20 MINUTES OR URGENT MATTERS, PLEASE CALL THROUGH THE WINDOW INSTALLER. FROM 7PM-7AM, PLEASE PAGE [phone](COVR). Chief Complaint No chief complaint on file. History of Present Illness Lani Lizama is an 73 y.o. male 73 years old white male transferred from [facility] with intermittent chest pain anterior chest radiating [...] postprandial insulin. His labs from [facility] reveals patient having chronic kidney disease stage [...] HFrEF (heart failure with reduced ejection fraction) ([facility]) Decongestive breath/guideline directed medical therapy limited because of renal function watch creatinine electrolytes especially potassium intake and output Coronary artery disease involving zuni coronary artery of zuni heart As above Chronic kidney disease Avoid hypovolemia and nephrotoxic meds hold lisinopril since patient on Aldactone watch potassium electrolyte creatinine renal function consider nephrology consult Type 2 diabetes mellitus without complication, with long-term current use of insulin ([facility]) Insulin blood sugar check diet Angina at rest As above Gross hematuria On antiplatelet agent watch for hematuria and follow Bladder cancer ([facility]) Recent cystoscopy follows urology CODE STATUS full code VTE Prophylaxis: Heparin subcutaneous watch for bleed ----- Focus of this inpatient stay will remain on problems that need acute care setting for care. We will review available studies and will order additional labs, imaging and other studies as appropriate. As need (more content not included)...[facility] 08-04-2024 Hospital Discharge instructions Patient Education [...] Up Care 08/03/2024 14:29:05 With:Jason LARKIN Address: [address] [place] [address] [facility] (1) When: Unknown Comments:Office will call to schedule follow up [facility] 05-06-2025 NotePatient Education Custom Cystoscopy ??? Voiding [...] if you have a fever over 100 degrees.[facility] 08-03-2024 NotePatient Education Urology Cystoscopy Cystoscopy is [...] including vitamins, herbs, eye drops, creams, and tvgo-bfy-scjeusf medicines. ??? Any problems you or family [...] tells you to take them. ??? Taking oxpm-vvh-xaxjvsx medicines, vitamins, herbs, and supplements. Tests You [...] these instructions at home: Medicines ??? Take ocnn-grw-cgxhkst and prescription medicines only as told by [...] testing (biopsy) during your (more content not included)...[facility]05-05-2025 Evaluation note* Diagnosis Onset Date Resolution Status Admit Date Dietary counseling and surveillance acute August 03, 2024 9:17am HTN (hypertension) acute July 5t h2024 9:17am BMI 31.0-31.9,adult deleted August 032024 9:17am [...] diabetic retinopathy acute August 25, 2024 11:31am [facility] Work Phone: 1(938) 107-177305-05-2025 Evaluation note* Diagnosis Onset Date Resolution Status [...] diabetic retinopathy acute October 27, 2024 11:31am [facility] Work Phone: 1(363) 133-855404-28-2025 Evaluation note* Diagnosis Onset Date Resolution Status [...] diabetic retinopathy acute August 25, 2024 11:31am [facility] Work Phone: 1(921) 821-966504-15-2025 Evaluation note* Diagnosis Onset Date Resolution Status [...] HLD (hyperlipidemia) deleted August 03, 2024 9:17am [facility] Work Phone: 1(553) 399-526604-15-2025 Evaluation note* Diagnosis Onset Date Resolution Status [...] diabetic retinopathy acute August 25, 2024 11:31am [facility] Work Phone: 1(781) 349-837901-30-2025 Evaluation note* Diagnosis Onset Date Resolution Status [...] h hyperglycemia acute July 27, 2024 11:19am [facility] Work Phone: 1(297) 436-134801-16-2025 Evaluation note* Diagnosis Onset Date Resolution Status [...] 2024 9:21am HLD (hyperlipidemia) deleted 2024 9:21am [facility] Work Phone: 1(501) 815-500101-16-2025 Evaluation note* Diagnosis Onset Date Resolution Status [...] kidney disease acute July 14, 2024 9:36am [facility] Work Phone: 1(677) 735-433801-02-2025 History of Present illness Narrative* Kenneth Tavera, [...] retinopathy (CMS/HCC) HTN (hypertension) (CMS/HCC) Hypercholesteremia (CMS/HCC) [place] (myocardial infarction) (CMS/HCC) 2021 Two total: 02/20, 03/22 Type 1 diabetes mellitus ([facility] [facility]) Medications: Current Outpatient Medications: ALPRAZolam (Xanax) 0.5 [...] in the morning., Disp: , Rfl: HYDROcodone-acetaminophen ([place]) 5-325 MG tablet, TAKE 1 TABLET BY [...] Strain: Low Risk (02/13/2024) Received from [facility] Overall Financial Resource Strain (CARDIA) Difficulty of Paying Living Expenses: Not very hard Food Insecurity: No Food Insecurity (02/13/2024) Received from [facility] Hunger Vital Sign Within the past 12 months, you worried that your food would run out before you got the money to buymore.: Never true Ran Out of Food in the Last Year: Not on file Transportation Needs: No Transportation Needs (02/13/2024) Received from [facility] Transportation In the past 12 months, has lack of transportation kept you from medical appointments or from getting medications?: No Lack of Transportation (Non-Medical): Not on file Physical Activity: Not on file Stress: Not on file Social Connections: Not on file Intimate Partner Violence: Unknown (02/13/2024) Received from [facility] Humiliation, Afraid, Rape, and Kick questionnaire Fear of Current or Ex-Partner: No Emotionally Abused: Not on file Physically Abused: Not on file Sexually Abused: Not on file Housing Stability: Low Risk (02/13/2024) Received from [facility] Housing Stability Vital Sign In the last 12 months, was there a time when you were not able to pay the mortgage or rent on time?: No Number of Times Moved in the Last Year: Not on file At any time in the past 12 months, were you homeless or living in a long term (including now)?: No ROS: General: denies fever, [...] and negative PT pedal pulses NEURO: 5.07 Woodruff Chun monofilament test diminished to digits and forefoot bilaterally 125Hz tuning fork diminished to 1st MPJ bilaterally ORTHO: Positive pain on palpation to nails 1 through 10 ASSESSMENT 1. Diabetes 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, without long-term current use of insulin ([facility]) 2. Pain due to onychomycosis of toenails [...] him Kenneth Tavera DPM documented in this encounterLake Regional Health [id number] NoteUT Cardiology Consult Note Reason for visit: Complete heart block on event monitor, HFrEF 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%, atrial tachycardia 03/10/24 Patient here for 5 mo follow up bradycardia, complete heart block s/p PPM per Dr. Bishop. [facility] also [facility] last month. Underwent heart cath with Dr. Pena on 02/12. He was started on Ranexa and lisinopril was stopped. Denies chest pain, SOB, and palpitations. Gets lightheaded at times, but no syncopal episodes. 05/07/23 Patient is s/p BiV ICD. he feels much better and believes that he is gone from 4/0 to 7/10 with [employer]. patient has got good device threshold. he [...] hypertension. He was recently admitted [place] [facility] [place]. Had inpatient stress test and heart cath. Denies SOB but still having chest pain and has taken nitroglycerin a few times for relief. Had CT chest last week s/p discharge. Cardiac catheterization revealed patent bypass grafts and worsening zuni vessel disease. Medications were adjusted. I had [...] Tobacco Use: Low Risk (01/23/2024) [facility] Patient History Smoking Tobacco Use: Never Smokeless Tobacco Use: Never Passive Exposure: Not on file Alcohol Use: Not At Risk (03/13/2018) Received from [facility] Frequency of Alcohol Consumption: Never [...] Abused: Not on f (more content not included)...[facility]11-25-2024 Evaluation note* Diagnosis Onset Date Resolution [...] 2024 9:21am HLD (hyperlipidemia) deleted 2024 9:21am [facility] Work Phone: 1(268) 596-266711-15-2024 NoteHospital Medicine Discharge Summary Final Discharge Diagnosis: NSTEMI CAD s/p CABG, PCI 08/2023 Chronic heart failure with reduced ejection fraction, NYHA class II Insulin-dependent type 2 diabetes mellitus Chronic kidney disease stage III A Third degree AV block with AICD/pacemaker Essential hypertension Carotid stenosis Hyperlipidemia Peripheral vascular disease Admission Diagnosis: NSTEMI (non-ST elevated myocardial infarction) ([facility]) [I21.4] Hospital course: Lani Lizama is an 73 y.o. male who came from Transferred from [facility] with NSTEMI with NSTEMI. 71-year-old gentleman with [...] that. Patient was transferred from [facility] where he was seen for chest pain that has been going on for most of the day causing him to take nitroglycerin on 5 separate incidences and with intensification of the chest pain at shortening intervals that caused him to call the ambulance. At [facility] workup did show that patient had rising troponins initial 1 was 23 and then 85 isa intensity troponin. There was no mention change on the EKG as was reported to me by the ER physician Dr. Lagos at [facility]. Other workup that was done at [facility] included basic metabolic panel that showed a [...] above. The ER physician from [facility] had spoken to our loan approver here who accepted the patient for transfer [facility] for possible trip to the [employer] very early this morning depending on the [...] 40 mg tablet Commonly (more content not included)...[facility] 02-13-2024 NoteHospital Medicine Daily Progress Note - 02/13/2024 8:36 AM; Room: [facility]- Admission: 02/13/2024 2:53 AM; Length of stay: 0 days THE HOSPITALIST TEAM PREFERS TO USE 1CLICK CHAT FOR COMMUNICATION 7AM-7PM. IF I DO NOT RESPOND WITHIN 15 MINUTES, PLEASE PAGE ME/CALL THROUGH THE WINDOW INSTALLER. FROM 7PM-7AM, PLEASE PAGE [phone](COVR) Code Status: Full Code Barriers to Discharge: NSTEMI Expected Discharge Date: 2-3 days Discharge Destination: home Overview Patient is seen for evaluation and management of chest pain. Subjective Patient was examined at bedside resting comfortably. He presented overnight to ED after transfer from [place]. He states that he had crushing chest [...] Principal Problem: NSTEMI (non-ST elevated myocardial infarction) ([facility]) Active Problems: Coronary atherosclerosis Essential hypertension History of coronary artery bypass surgery Mixed hyperlipidemia Stage 3 chronic kidney disease ([facility]) Chest pain Type 2 diabetes mellitus with hyperglycemia ([facility]) PVD (peripheral vascular disease) ([facility]) Carotid stenosis, asymptomatic Assessment and Plan Lani Lizama is a 73 year old male with a past medical history of CAD with 9 stents, 5 vessel CABG, HTN, HLD, DM2, third degree AV block with pacemaker/AICD presented as a transfer from [place] ED with worsening crushing, radiating chest pain. Patient is being [facility] and cardiology has been consulted. Tentative plan [...] subcutaneous, Nightly isosorbide mononitra (more content not included)...[facility]11-14-2024 NoteHospital Medicine History and Physical 02/13/2024 3:40 AM THE HOSPITALIST TEAM PREFERS TO USE AskBot FOR NON-URGENT COMMUNICATION 7AM-7PM. IF I DO NOT RESPOND WITHIN 20 MINUTES OR URGENT MATTERS, PLEASE CALL THROUGH THE WINDOW INSTALLER. FROM 7PM-7AM, PLEASE PAGE [phone](COVR). Chief Complaint No chief complaint on file. History of Present Illness Lani Lizama is an 73 y.o. male who came from Transferred from [facility] with NSTEMI with NSTEMI. 71-year-old gentleman with [...] that. Patient was transferred from [facility] where he was seen for chest pain that has been going on for most of the day causing him to take nitroglycerin on 5 separate incidences and with intensification of the chest pain at shortening intervals that caused him to call the ambulance. At [facility] workup did show that patient had rising troponins initial 1 was 23 and then 85 isa intensity troponin. There was no mention change on the EKG as was reported to me by the ER physician Dr. Lagos at [facility]. Other workup that was done at [facility] included basic metabolic panel that showed a [...] above. The ER physician from [facility] had spoken to our loan approver here who accepted the patient for [facility] for possible trip to the [employer] very early this morning depending on the [...] Mixed hyperlipidemia Stage 3 chronic kidney disease ([facility]) Chest pain Type 2 diabetes mellitus with hyperglycemia ([facility]) PVD (peripheral vascular disease) ([facility]) Carotid stenosis, asymptomatic Assessment and Plan PLAN OF CARE: 71-year-old gentleman with very profuse history of cardiovascular disease including prior CAD with stents and CABG as well as hypertension and HLD comes seen with acute NSTEMI. Patient is being [facility] and cardiology has been consulted with possible trip to the [employer] at the earliest possible time by cardiology. [...] be -Consult cardiology (done) (more content not included)...[facility]10-24-2024 History of Present illness Narrative* Kenneth Tavera [...] has only been using prescribed or recommended tuwt-ogf-fhweliv cream with some improvement. Patient also has longstanding history of multiple MIs and cardiac history Allergies: Allergies Allergen Reactions Other Other Reaction(s): Unknown Received name: Dayana Past Medical History: Past Medical History: Diagnosis Date Diabetic retinopathy ([facility]) HTN (hypertension) ([facility]) Hypercholesteremia ([facility]) [place] (myocardial infarction) ([facility]) 2021 Two total: 02/20, 03/22 Type 1 diabetes mellitus ([facility]) Medications: Current Outpatient Medications: ALPRAZolam (Xanax) 0.5 [...] in the morning., Disp: , Rfl: HYDROcodone-acetaminophen ([place]) 5-325 MG tablet, TAKE 1 TABLET BY [...] Strain: Low Risk (09/26/2023) Received from [facility] Overall Financial Resource Strain (CARDIA) Difficulty of Paying Living Expenses: Not very hard Food Insecurity: No Food Insecurity (09/26/2023) Received from [facility] Hunger Vital Sign Within the past 12 months, you worried that your food would run out before you got the money to buymore.: Never true Ran Out of Food in the Last Year: Not on file Transportation Needs: No Transportation Needs (09/26/2023) Received from [facility] Transportation In the past 12 months, has lack of transportation kept you from medical appointments or from getting medications?: No Lack of Transportation (Non-Medical): Not on file Physical Activity: Not on file Stress: Not on file Social Connections: Not on file Intimate Partner Violence: Unknown (09/26/2023) Received from [facility] Humiliation, Afraid, Rape, and Kick questionnaire Fear of Current or Ex-Partner: No Emotionally Abused: Not on file Physically Abused: Not on file Sexually Abused: Not on file Housing Stability: Low Risk (09/26/2023) Received from [facility] Housing Stability Vital Sign Unable to Pay [...] and negative PT pedal pulses NEURO: 5.07 Woodruff Chun monofilament test diminished to digits and forefoot bilaterally 125Hz tuning fork diminished to 1st MPJ bilaterally ORTHO: Positive pain on palpation to nails 1 through 10 ASSESSMENT 1. Diabetes 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, without long-term current use of insulin ([facility]) 2. Pain due to onychomycosis of toenails [...] him Kenneth Tavera DPM documented in this encounterLake Regional Health [id number] Evaluation note* Encounter Date Diagnosis Assessment Notes Treatment Notes Treatment Clinical Notes Apr, Chronic HFrEF (heart failure with reduced ejection fraction) (ICD-10 - I50.22) [employer] Other 12-12-2023 Evaluation note* Encounter Date Diagnosis [...] hypertension material was printed on diony. Mar, custodial current use of insulin (ICD-10 - Z79.4) Mar, Hyperlipidemia (ICD-10 - E78.5) High cholesterol material was printed 05/2022 ldl 69- on statin. Mar, BMI 27.0-27.9,adult (ICD-10 - Z68.27) Eating healthy: tips to make it easier material was printed [employer] Other 2023 Evaluation note* Encounter Date Diagnosis Assessment Notes Treatment Notes Treatment Clinical Notes Jan, Chronic HFrEF (heart failure with reduced ejection fraction) (ICD-10 - I50.22) [facility] Other 10-09-2023 Evaluation note* Encounter Date Diagnosis [...] Continue statins. Monitor LFTs and lipid profile. [facility] Other 10-06-2023 Evaluation note* Encounter Date Diagnosis Assessment Notes Treatment Notes Treatment Clinical Notes Dec, Ground glass opacity present on imaging of lung (ICD-10 - R91.8) CT: RUL, RML - 12/2022Dec, Pulmonary nodule (ICD-10 - R91.1) CT: 7mm RML nodule - 12/2022 [facility] Other 10-03-2023 Evaluation note* Encounter Date Diagnosis Assessment Notes Treatment Notes Treatment Clinical Notes Dec, Stage 3b chronic kidney disease (ICD-10 - N18.32) [facility] Other 10-02-2023 Evaluation note* Encounter Date Diagnosis [...] risk for cerebrovascular and cardiovascular disease. Dec, custodial current use of insulin (ICD-10 - Z79.4) [...] be contributing - must discuss w/ Cardiology [facility] Other 07-03-2023 Evaluation note* Encounter Date Diagnosis Assessment Notes Treatment Notes Treatment Clinical Notes Sep, ASHD (arteriosclerotic heart disease) (ICD-10 - I25.10) [facility] Other 06-21-2023 Evaluation note* Encounter Date Diagnosis Assessment Notes Treatment Notes Treatment Clinical Notes Aug, ASHD (arteriosclerotic heart disease) (ICD-10 - I25.10) [facility] Other 06-02-2023 Evaluation note* Encounter Date Diagnosis [...] inserts to prevent callus formation.Fall precautions. Aug, terminal make up operator (current) use of insulin (ICD-10 - Z79.4) [facility] Other 05-11-2023 Evaluation note* Encounter Date Diagnosis Assessment Notes Treatment Notes Treatment Clinical Notes July, Ground glass opacity present on imaging of lung (ICD-10 - R91.8) CT: RML,RUL infiltrate - 12/2021, CT: RML,RUL improved - 03/2022 CT: RML, RUL, GGO improved - 07/2022 [facility] Other 04-03-2023 Evaluation note* Encounter Date Diagnosis [...] D and PTH. Advised low phosphorus diet. [facility] Other 03-30-2023 Evaluation note* Encounter Date Diagnosis [...] are reviewed at the office visit. May, custodial (current) use of insulin (ICD-10 - Z79.4) [...] (ICD-10 - Z12.5) Yearly PSA and ABDELRAHMAN [facility] Other 03-28-2023 Evaluation note* Encounter Date Diagnosis [...] 2. Blood glucose levels stable. According to [employer] cgm download 06/13/2022- 3: Average glucose 190. [...] hypertension material was printed on diony. May, custodial current use of insulin (ICD-10 - Z79.4) May, Hyperlipidemia (ICD-10 - E78.5) High cholesterol material was printed 05/2022 ldl 69- on statin. May, BMI 27.0-27.9,adult (ICD-10 - Z68.27) Eating healthy: tips to make it easier material was printed [facility] Other 02-25-2023 Evaluation note* Encounter Date Diagnosis Assessment Notes Treatment Notes Treatment Clinical Notes May, Abnormality of lung on CXR (ICD-10 - R91.8) [facility] Other 12-20-2022 Evaluation note* Encounter Date Diagnosis [...] 2. Blood glucose levels stable. According to [employer] cgm download 03/07/2022-03/20/20 22: Average glucose 144. Above 250-0%, >180- 15%, 70-180-85%, <70-0%, <54-0%. CV 24.3%. Reviewed download with pt, no incidence of hypoglcyemia noted. Glucose rise between 12-6pm. D/t current shortage of ozempic, recommend pt reduce dose to 0.5mg once weekly until shipment recieved from [facility], then increase to 1mg once [...] hypertension material was printed on diony. Mar, custodial current use of insulin (ICD-10 - Z79.4) Mar, Hyperlipidemia (ICD-10 - E78.5) High cholesterol material was printed 06/2021 ldl 48- on statin. Mar, BMI 26.0-26.9,adult (ICD-10 - Z68.26) Eating healthy: tips to make it easier material was printed 9 pound weight loss from last visit, continue with weight loss efforts [facility] [employer] Other 11-10-2022 Evaluation note* Encounter Date Diagnosis Assessment Notes Treatment Notes Treatment Clinical Notes Jan, Diabetes mellitus with chronic kidney disease (ICD-10 - E11.22) [facility] [employer] [facility] [employer] Other 10-19-2022 Discharge summary Author Gagan Shahid [facility] January 17, 2022 3:02pm Note Date/Time January 17, 2022 3 :02pm [facility] [address] [place] [address] Discharge Summary Signed Patient: Lani Lizama MR#: [id number] : 1950 Acct:[id number] Age/Sex: 71 / M Adm Date: 2 Loc: Room: [address] [place] [address]: Gagan Shahid DO Copies to: [...] thought this to be indigestion/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 Cardiac catheterization was undergone on 01/16/2022 showing [...] levels as before. DISCHARGE INSTRUCTIONS FOR CARDIAC HEALTHCARE ADMINISTRATOR PHONE NUMBER OF YOUR PHYSICIAN: [phone] PROCEDURE: Heart Cath The following instructions have [...] cold, numb, blue or white, call the loan approver immediately. 4. ACTIVITY: You are advised to [...] bottle, follow the instructions on the bottle. [facility] is not responsible for incorrect prescription [...] please call to reschedule if needed.) Callie Fair, JULY [Nurse Practitioner] - 01/24/22 4:00 pm Documented By: Gagan Shahid DO 01/17/22 14 57 Signed By: <Electronically signed by Gagan Shahid DO> 01/17/22 4[address] [facility] Work Phone: 1(712) 956-270710-19-2022 Progress note Author Luis Alfredo Borges [facility] January 17, 2022 11:47am Note Date/Time January 17, 2022 1 1:47am [facility] [address] [place] [address] Cardiology Progress Note Signed Patient: Lani Lizama MR#: [id number] : 1950 Acct:[id number] Age/Sex: 71 / M Adm Date: 2 Loc: 3T Room: [address] [place] [address] Type: ADM IN Attending Dr: Gagan Shahid [...] is also notable worsening of the patient's zuni occlusive coronaryheart disease particularly in the microcirculation [...] daily 3. Patient does have a primary loan approver near his home in [place]. We willschedule him 1 follow-up visit in [facility] for left wrist check and also for counseling and reinforcement/referral to phase 2 monitored cardiac rehabilitation which the patient desires to perform in [place]. 4. Instructed the patient that he can [...] Alfredo Borges MD> 01/17/22 1147 [facility] Work Phone: 1(922) 799-851510-18-2022 Progress note Author Gagan Shahid [facility] January 16, 2022 4:09pm Note Date/Time January 16, 2022 4 :09pm [facility] [address] [place] [address] Hospitalist Progress Note Signed Patient: Lani Lizama MR#: [id number] : 1950 Acct:[id number] Age/Sex: 71 / M Adm Date: 2 Loc: Room: [address] [place] [address] Type: ADM IN Attending Dr: Gagan Shahid [...] DAILY RICARDA Administration Atorvastatin Calcium 10 mg 10/17/22 21:00 01/15/22 21:11 Atorvastatin 10 Mg Tablet [...] signed by Gagan Shahid DO> 01/16/22 160[address] [facility] Work Phone: 1(298) 847-837610-18-2022 [facility] Consult note Author Luis Alfredo Borges [facility] January 16, 2022 10:24am Note Date/Time January 16, 2022 1 0:24am [facility] [address] [place] [address] Cardiology Consult Note Signed Patient: Lani Lizama MR#: [id number] : 1950 Acct:[id number] Age/Sex: 71 / M Adm Date: 2 Loc: Room: [address] [place] [address] Type: ADM IN Attending Dr: Gagan Shahid [...] well as history of PCI done here [facility] per Dr. Saldaña in May 2020 [...] EMS and was taken to [facility] emergency department. There the patient was treated [...] Lymph # (Auto) 1.0 1.6 (1.00-4.8) x10E3/uL Bo[place] # (Auto) 0.4 0.8 (0.0-0.8) x10E3/uL Eos [...] nonspecific abnormality, ST segment, and/or T wave [place], pacemaker, normal Normal tracing: no change compared [...] by Luis Alfredo Borges MD> 01/16/22 [address] [facility] Work Phone: 1(856) 692-986110-17-2022 History and physical note Author Gagan Shahid [facility] January 15, 2022 6:56pm Note Date/Time January 15, 2022 6 :02pm [facility] [address] [place] [address] Hospitalist H&P Signed Patient: Lani Lizama MR#: [id number] : 1950 Acct:[id number] Age/Sex: 71 / M Adm Date: 2 Loc: Room: [address] [place] [address] Type: ADM IN Attending Dr: Gagan Shahid [...] need for cardiovascular evaluation [facility] was [facility] for further management and cardiology consultation. [...] % (Auto) 13.8 % (.) 01/15/22 15:00 Boone % (Auto) 6.1 % (.) 01/15/22 15:00 Eos % (Auto) 0.9 % (.) 01/15/22 15:00 Baso % (Auto) 0.5 % (.) 01/15/22 15:00 Neut # (Auto) 5.6 x10E3/uL (1.8-7.7) 01/15/22 15:00 Lymph # (Auto) 1.0 x10E3/uL (1.00-4.8) 01/15/22 15:00 Boone # (Auto) 0.4 x10E3/uL (0.0-0.8) 01/15/22 15:00 [...] <Electronically signed by Gagan Shahid DO> 01/15/22 940 [facility] Work Phone: 1(237) 364-648709-19-2022 Evaluation note* Encounter Date Diagnosis Assessment Notes [...] Blood glucose levels above improved. According to [employer] cgm download 12/05/2021- 2: Average glucose 119. [...] hypertension material was printed on diony. Nov, custodial current use of insulin (ICD-10 - Z79.4) Nov, Hyperlipidemia (ICD-10 - E78.5) High cholesterol material was printed 06/2021 ldl 48- on statin. Nov, BMI 27.0-27.9,adult (ICD-10 - Z68.27) Eating healthy: tips to make it easier material was printed 22 pound weight loss from last visit, continue with weight loss efforts [employer] Other 07-22-2022 Miscellaneous Notes* Telephone Encounter - Vee Day - 10/20/2021 9:42 AM EDT New CBC order. Vee Day documented in this encounterAv[facility] System04-18-2022 Evaluation note* Encounter Date Diagnosis Assessment Notes [...] Blood glucose levels above improved. According to [employer] cgm download 07/04/2021-07/17/2021 : Average glucose 146. [...] material was printed on diony. Jun, terminal make up operator current use of insulin (ICD-10 - Z79.4) Jun, BMI 30.0-30.9,adult (ICD-10 - Z68.30) Eating healthy: tips to make it easier material was printed see above Jun, Bradycardia (ICD-10 - R00.1) asymptomatic- f/u with cardiology has upcoming apt. If symptomatic i.e. light headed notify sooner [facility] Other 03-21-2022 Evaluation note* Encounter Date Diagnosis Assessment Notes Treatment Notes Treatment Clinical Notes May, Gastro-esophageal reflux disease with esophagitis, without bleeding (ICD-10 - K21.00) [facility] Other 03-08-2022 Evaluation note* Encounter Date Diagnosis [...] His MBD parameters are within the goal. [facility] Other 02-21-2022 Evaluation note* Encounter Date Diagnosis Assessment Notes Treatment Notes Treatment Clinical Notes May, Diabetes mellitus with chronic kidney disease (ICD-10 - E11.22) [facility] Other 01-10-2022 Evaluation note* Encounter Date Diagnosis Assessment Notes Treatment Notes Treatment Clinical Notes Apr, Type 2 diabetes mellitus with hyperglycemia (ICD-10 - E11.65) [facility] Other 01-10-2022 Evaluation note* Encounter Date Diagnosis [...] Blood glucose levels above improved. According to [employer] cgm download 03/28/2021-04/10/19 22: Average glucose 167. [...] hypertension material was printed on [employer]ion[employer]. Apr, terminal make up operator current use of insulin (ICD-10 - Z79.4) Apr, BMI 30.0-30.9,adult (ICD-10 - Z68.30) Eating healthy: tips to make it easier material was printed see above [facility] Other 11-16-2021 Evaluation note* Encounter Date Diagnosis [...] His MBD parameters are within the goal. [facility] Other 10-05-2021 Evaluation note* Encounter Date Diagnosis [...] above target with increased variability. According to [employer] cgm download 12/07/2020-01/03/2021: Average glucose 135. Above [...] material was printed on [employer]ion[employer]. Dec, terminal make up operator current use of insulin (ICD-10 - Z79.4) Dec, BMI 31.0-31.9,adult (ICD-10 - Z68.31) Eating healthy: tips to make it easier material was printed 12 pound weight loss from last visit, continue with weight loss efforts Dec, Bradycardia (ICD-10 - R00.1) Pt asymptomatic. Notified loan approver Dr. Velazquez. Pt has apt on Saturday next week. [facility] Other Chitv complaint+Reason for visit Narrative* Chief Complaint 4 month follow up Reason for Visit BMI 28.0-28.9,adult Dietary counseling and surveillance HTN (hypertension) Chronic HFrEF (heart failure with reduced ejection fraction) Chronic kidney disease [id number] HTN (hypertension) Hypercholesterolemia Ischemic cardiomyopathy Pulmonary nodule Type 2 diabetes mellitus with hyperglycemia [facility] Work Phone: Evaluation + Plan note No data available for this section General Surgery [place] Evaluation + Plan note Future Appointments Appointment Date:08/04/2024 10:00:00 AM Scheduled Provider: Location:[facility] Appointment Type:Urology FT Diagnostic Tests Pending * Urine Cytology ([facility]) 08/03/24 [facility] Evaluation + Plan note Future Appointments Appointment Date:11/23/2024 11:30:00 AM Scheduled Provider:Jason LARKIN MD Location:[facility] Appointment Type:URO Office Visit [facility] evaluation + Plan note Future Appointments Appointment Date:12/18/2024 09:45:00 AM Scheduled Provider:Jason LARKIN MD Location:[facility] Appointment Type:URO Office Visit [facility] evaluation + Plan note Future Appointments Appointment Date:01/08/2025 09:30:00 AM Scheduled Provider: Location:[facility] Appointment Type:URO Nurse Visit [facility] evaluation noteNo [employer] Other evaluation note* Diagnosis Monoclonal gammopathy- Primary Monoclonal paraproteinemia [facility] Diagnosis Onset Date Resolution Status Non-ST elevation myocardial infarction (NSTEMI), initial care episode acute [facility] Work Phone: evaluation noteNo assessment information available [facility] Work Phone: evaluation note* Diagnosis Onset Date Resolution Status BMI 26.0-26.9,adult acute Dietary counseling and surveillance acute DM2 (diabetes mellitus, type 2) acute HLD (hyperlipidemia) acute HTN (hypertension) acute [facility] Work Phone: evaluation note* Diagnosis Onset Date Resolution Status BMI 26.0-26.9,adult acute Dietary counseling and surveillance acute DM2 (diabetes mellitus, type 2) acute HLD (hyperlipidemia) acute HTN (hypertension) acute Chronic HFrEF (heart failure with reduced ejection fraction) acute CKD (chronic kidney disease) stage 3, GFR 30-59 ml/min acute HLD (hyperlipidemia) acute [id number] acute Secondary hyperparathyroidism acute Type 2 diabetes 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 acute [facility] Work Phone: evaluation note* Diagnosis Onset Date Resolution Status Dietary counseling and surveillance acute HTN (hypertension) acute Chronic HFrEF (heart failure with reduced ejection fraction) acute CKD (chronic kidney disease) stage 3, GFR 30-59 ml/min acute [id number] acute Secondary hyperparathyroidism acute Type 2 diabetes 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 acute Chronic HFrEF (heart failure with reduced ejection fraction) acute Chronic kidney disease acute HTN (hypertension) acute Hypercholesterolemia acute Ischemic cardiomyopathy acut e Pulmonary nodule acute Type 2 diabetes mellitus with hyperglycemia acute Medicare annual wellness visit, subsequent noneactive Screening PSA (prostate specific antigen) noneactive [facility] Work Phone: Evaluation note* Diagnosis Onset [...] counseling and surveillance acute HTN (hypertension) acute [facility] Work Phone: evaluation note* Diagnosis Onset Date Resolution Status BMI 28.0-28.9,adult acute Dietary counseling and surveillance acute HTN (hypertension) acute Chronic HFrEF (heart failure with reduced ejection fraction) acute Chronic kidney disease acute [id number] acute HTN (hypertension) acute Hypercholesterolemia acute Ischemic cardiomyopathy acut e Pulmonary nodule acute Type 2 diabetes mellitus with hyperglycemia acute [facility] Work Phone: evaluation note* Diagnosis Onset [...] disease) stage 3, GFR 30-59 ml/min acute [id number] acute Secondary hyperparathyroidism acute Type 2 diabetes 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 acute [facility] Work Phone: evaluation note* Diagnosis Onset Date Resolution Status Chronic HFrEF (heart failure with reduced ejection fraction) acute Chronic kidney disease acute HTN (hypertension) acute Hypercholesterolemia acute Ischemic cardiomyopathy acut e Pulmonary nodule acute Type 2 diabetes mellitus with hyperglycemia acute Chronic HFrEF (heart failure with reduced ejection fraction) acute CKD (chronic kidney disease) stage 3, GFR 30-59 ml/min acute [id number] acute Secondary hyperparathyroidism acute Type 2 diabetes 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 acute BMI 27.0-27.9,adult acute Dietary counseling and surveillance acute HTN (hypertension) acute [facility] Work Phone: Evaluation note* Diagnosis Xerosis cutis- Primary Other specified disease of sebaceous glands Diabetes 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, without long-term current use of insulin (CMS/HCC) Pain due to onychomycosis of toenails of both feet documented in this encounter [facility] HealthcareEvaluation note* Diagnosis Diabetes 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, without long-term current use of insulin (CMS/HCC)- Primary Pain due to onychomycosis of toenails of both feet documented in this encounter [facility] HealthcareEvaluation note* Diagnosis Diabetes 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, without long-term current use of insulin ([facility])- Primary Pain due to onychomycosis of toenails of both feet Xerosis cutis Other specified disease of sebaceous glands documented in this encounter [facility] HealthcareHistory general Narrative - [...] 11-25-16 Hospitalization History HEART STENT PLACED 03-20 [facility] [employer] Other History [facility] [employer] Other History general Narrative - Reported* Type [...] 11-25-16 Hospitalization History HEART STENT PLACED 03-20 [facility] Other [employer] general Narrative - Reported* Type Description Date [...] 11-25-16 Hospitalization History HEART STENT PLACED 03-20 [facility] Other [employer] general Narrative - Reported* Type Description Date [...] 11-25-16 Hospitalization History HEART STENT PLACED 03-20 [facility] Other History general Narrative - Reported* Type [...] STENT PLACED 03-20 Hospitalization History SEE ABOVE [facility] Other History general Narrative - [employer]orted[employer]ort[employer] Other History general Narrative - Reported* Type [...] STENT PLACED 03-20 Hospitalization History SEE ABOVE [facility] Other History general Narrative - Reported* Type [...] STENT PLACED 03-20 Hospitalization History SEE ABOVE [facility] Other History general Narrative - Reported* Type [...] STENT PLACED 03-20 Hospitalization History SEE ABOVE [facility] Other History general Narrative - Reported* Type [...] History GGO and Pulmonary nodules Medical History [place] 01/21 Medical History Defibrilator 02/21 Surgical History [...] 03-20 Hospitalization History SEE ABOVE Hospitalization History [place] 01/21 [facility] Other Hospital Discharge instructions No data available for this section [facility] Discharge instructions Additional Instructions Monitor glucose levels as before. DISCHARGE INSTRUCTIONS FOR CARDIAC HEALTHCARE ADMINISTRATOR PHONE NUMBER OF YOUR PHYSICIAN: [phone] PROCEDURE: Heart Cath The following instructions have [...] cold, numb, blue or white, call the loan approver immediately. 4. ACTIVITY: You are advised to [...] bottle, follow the instructions on the bottle. [facility] is not responsible for incorrect prescription information provided by the patient during their visit. Do not stop your medications without consulting your health care provider. Please take the list with you to your next doctor's appointment. [facility] Work Phone: Hospital Discharge instructionsAmbulatory Orders* Referral to Podiatry Location: None Selected [facility] Work Phone: Hospital Discharge instructionsAmbulatory Orders* Referral to Urology Time Frame: 07/14/24, Location: None [facility] Work Phone: Progress note No data available for this section General Surgery [place] Reason for referral (narrative)No reason for referral [facility] Work Phone: Summary Purpose Family History No Family History [...] stage 3, GFR 30-59 ml/min HLD (hyperlipidemia) [id number] Secondary hyperparathyroidism Type 2 diabetes mellitus with diabetic chronic kidney disease 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9,adult Dietary counseling and surveillance HTN (hypertension) Chief Complaint Admit Date Amb Documentation February 18, 2024 9:11am CC Adult Risk Stratification February 172023 10:26am [facility]-HIGH RISK Nov 2023 9:29am 4 [...] Amb Documentation August 21, 2024 1:11p m [facility] August 25, 2024 11:31 am Reason [...] Amb Documentation August 21, 2024 1:11p m [facility] August 25, 2024 11:31 am Unknown [...] Amb Documentation August 21, 2024 1:11p m [facility] August 25, 2024 11:31 am Unknown [...] Amb Documentation August 21, 2024 1:11p m [facility] August 25, 2024 11:31 am Unknown September 21, 2024 9:25 am Amb Documentation October 15, 2024 10:1 9am Unknown October 26, 2024 8:18 am [facility] f/u October 27, 2024 11:3 1am [...] Amb Documentation August 21, 2024 1:11p m [facility] August 25, 2024 11:31 am Unknown September 21, 2024 9:25 am Amb Documentation October 15, 2024 10:1 9am Unknown October 26, 2024 8:18 am [facility] f/u October 27, 2024 11:3 1am [...] section and content) DATE CREATED AUTHOR 11/29/2018 [facility] DATE CREATED AUTHOR AUTHOR'S ORGANIZ ATION 10/25/2021 [facility] DATE CREATED AUTHOR AUTHOR'S ORGANIZ ATION 08/13/2022 [facility] DATE CREATED AUTHOR AUTHOR'S ORGANIZ ATION 08/12/2024 [facility] DATE CREATED AUTHOR AUTHOR'S ORGANIZ ATION 12/05/2024 [facility] DATE CREATED AUTHOR AUTHOR'S ORGANIZ ATION 12/17/2024 [facility] DATE CREATED AUTHOR AUTHOR'S ORGANIZ ATION 12/21/2024 [facility] DATE CREATED AUTHOR AUTHOR'S ORGANIZ ATION 12/23/2024 [facility] DATE CREATED AUTHOR AUTHOR'S ORGANIZ ATION 01/10/2025 [facility] DATE CREATED AUTHOR AUTHOR'S ORGANIZ ATION 01/11/2025 [facility] DATE CREATED AUTHOR AUTHOR'S ORGANIZ ATION 01/14/2025 [facility] REASON FOR VISIT (unrecogniz ed section and content) Reason Comments Lab Orders Reason Comments DM Foot Care Dm Nails Reason Comments DM Foot Care Dm nail care Reason Comments Diabetic Shoes Care Team (unrecognized sect ion and content) Team Status: Active Member Role Status Dates Harley Crespo DO Primary Care Provider Active Team Status: Inactive Member Role Status Dates NON STAFF Attending Provider Active Start: 2024 End: September 21, 2024 Team Status: Active Member Role Status Dates Jackson Miles MD Attending Provider Active Start: September 21, [...] Status: Inactive Member Role Status Dates Jackson Miles MD Attending Provider Active Start: October 26, 2024 End: October 26, 2024 Team Status: Active Member Role Status Dates Harley Ball , DO Primary Care Provider Active Start: October 26, 2024 Jackson Miles MD Attending Provider Active Start: October 26, 2024 Team Status: Inactive Member Role Status Dates Harley Crespo , DO Primary Care Provider Active Start: October 27, 2024 End: October 27, 2024 Harley Crespo , DO Attending Provider Active Sta rt: October 27, 2024 End: October 27, 2024 Team Status: Active Member Role Status Dates Harley Crespo DO Primary Care Provider Active Start: November 09, 2024 Kingsley Good MD Attending Provider Active Start : November 09, 2024 Team Status: Inactive Member Role Status Dates Harley Crespo DO Primary Care Provider Active Start: November 10, 2024 End: November 10, 2024 Arlen Kwong APRN Attending Provider Active Start: November [...] 2024 End: August 25, 2024 Harley Crespo , DO Attending Provider Active Sta rt: August 25, 2024 End: August 25, 2024 Team Status: Active Member Role Status Dates Harley Crespo DO Primary Care Provider Active Start: August 27, 2024 Harley Crespo , DO Attending Provider Active Sta rt: August [...] July 02, 2023 End: July 02, 2023 Senior Water Resources Engineer Relationship Specialty Start Date End Date Harley Crespo DO [address] [place] [address] PCP - General Internal Medicine 07/18/18 Team Status: Inactive Member Role Status Dates Harley Crespo DO Primary Care Provider Active Gagan Shahid DO Admit Provider, Attending Provider Active Team Status: Active Member Role Status Dates Harley Crespo DO Primary Care Provider Active Ryan Garrett APRN [employer] REPA[employer]ER-C Active Valerie Gallegos PA-C Active Arlen Kwong APRN Attending Provider Active Team Status: Inactive Member Role Status Dates Arlen Kwong APRN Attending Provider Active Start: March 12, 2023 End: March 12, 2023 Team Status: Inactive Member Role Status Dates Harley Crespo DO Primary Care Provider Active Start: March 12, 2023 End: March 12, 2023 Ryan Garrett APRN [employer] REPAIRER-C Active Sta rt: March 12, 2023 End: [...] January 23, 2024 End: January 23, 2024 Senior Water Resources Engineer Relationship Specialty Start Date End Date Harley Crespo MD [address] [place] [place] [id number] PCP - General Internal Medicine 11/07/23 Senior Water Resources Engineer Relationship Specialty Start Date End Date Harley Crespo MD [address] [place] [id number] PCP - General Internal Medicine 11/07/23 Senior Water Resources Engineer Relationship Specialty Start Date End Date Harley Crespo MD [address] [place] [phone] PCP - General Internal Medicine 11/07/23 Team Status: Inactive Member Role Status Dates Harley Crespo DO Primary Care Provide r, Attending Provider Active Start: August 25, 2024 End: August 25, 2024 Team Status: Active Member Role Status Dates Harley Crespo DO Primary Care Provide r, Attending Provider Active Start: August 27, 2024 Senior Water Resources Engineer Relationship Specialty Start Date End Date Harley Crespo DO [address] [place] [id number] PCP - General Internal Medicine 11/07/23 Senior Water Resources Engineer Relationship Specialty Start Date End Date Harley Crespo DO [address] [place] [phone] PCP - General Internal Medicine 11/07/23 Team Status: Inactive Member Role Status Dates Harley Crespo DO Primary Care Provider Active Start: July 27, 2024 End: July 27, 2024 Harley Crespo DO Attending Provider Active Sta rt: July 27, 2024 End: July 27, 2024 Team Status: Active Member Role Status Dates Harley Crespo DO Primary Care Provider Active Start: December 02, 2024 Harley Crespo DO Attending Provider Active Sta rt: December 02, 2024 Source Comments (unrecognize d section and content) In the event this informatio n is protected by the Federal Confidentiality of Alcohol and Drug Abuse Patient Records regulations: The Federal rules restrict any use of the information to criminally investigate or prosecute any alcohol or drug abuse patient.[facility] Goals (unrecognized section and content) Goals may [...] BE BASED ON THE PRIMARY CLINICAL RECORDS. [employer] [facility]. provides no warranty or guarantee of the accuracy or completeness of information in this document.
[2025-01-15 12:46] LABS: Hematocrit 41.6 % (42.0-54.0); Hemoglobin 13.4 g/dL (14.0-18.0); Mean Corpuscular HGB Conc 32.2 g/dL (29.9-35.2); Mean Corpuscular Hemoglobin 28.8 pg (25.9-34.0); Mean Corpuscular Volume 89.3 fL (80.0-94.0); Platelet Count 235 10^3/uL (150-450); Red Blood Count 4.66 10^6/uL (4.70-6.10); White Blood Count 9.6 10^3/uL (4.0-11.0)
[2025-01-15 13:30] LABS: Glucose Urine UA >=1000 mg/dL (NEGATIVE)
[2025-01-15 13:34] LABS: Albumin Level 3.7 g/dL (3.4-5.0); Anion Gap 16.1; Blood Urea Nitrogen 25.0 mg/dL (7.0-18.0); Calcium 9.2 mg/dL (8.5-10.1); Carbon Dioxide 21.4 mmol/L (21.0-32.0); Chloride 105 mmol/L (98-107); Estimated GFR (African America 33 (>=60 mL/min/1.73m^2); Estimated GFR (Non-African Ame 27 (>=60 mL/min/1.73m^2); Glucose 300 mg/dL (74-106); Magnesium 2.1 mg/dL (1.8-2.4); Potassium 4.5 mmol/L (3.5-5.1); Sodium 138 mmol/L (136-145); Uric Acid 4.0 mg/dL (3.5-7.2)
[2025-01-15 14:38] LABS: Cast Seen? NONE SEEN #/LPF (NONE SEEN); Crystals Seen? None Seen #/HPF (None Seen)
[2025-01-15 15:19] LABS: Protein Creatinine Ratio Urine 1.56; Total Protein Urine Random 64.5 mg/dL (<=11.9)
== END 2025-01-15 11:32 | disposition home or self-care (01) ==
LOC: LAB 11:35
PROVIDERS: PCP Internal Medicine; Visit Provider Internal Medicine
DX: N25.81 Secondary hyperparathyroidism of renal origin (principal); E11.22 Type 2 diabetes mellitus with diabetic chronic kidney disease; I12.9 Hypertensive chronic kidney disease with stage 1 through stage 4 chronic kidney disease, or unspecified chronic kidney disease; N18.30 Chronic kidney disease, stage 3 unspecified; I50.22 Chronic systolic (congestive) heart failure; E78.5 Hyperlipidemia, unspecified
CPT/HCPCS: 36415; 80069; 81001; 82306; 82570; 83735; 83970; 84156; 84550; 85027

== ENCOUNTER 2025-02-15 08:07 | Outpatient (RCR) | payer MEDICARE, OTHER, SELFPAY ==
[2025-02-15 08:29] VITALS: BP 160/88; PULSE 87; TEMP 35.8; O2SAT 100
[2025-02-15] MEDS: GEMCITABINE HCL 2,000 MG in 0.9 % SODIUM CHLORIDE 50 ML 102.6 MG INTRAVESIC (08:43)
--- NOTE | 2025-02-15 08:57 | PC.NURSE ---
0800 Arrival ambulatory, alert oriented. Procedure explained patient verbalizes understanding 0815 #16 Argentine orellana inserted under sterile technique with use of urojet, patient tolerated well. orellana retured cloudy yellow urine. balloon inflated with 10 ml of sterile saline. patient tolerated [id number] ua obtained and sent to lab. Dr Blandon's office notified of cloudy urine. patient does complain of incontinence since TURB, but denies burning, denies any odor to urine.
[2025-02-15 09:24] LABS: Glucose Urine UA >=1000 mg/dL (NEGATIVE)
[2025-02-15] MEDS: LIDOCAINE 2% JELLY 10 ML UR (09:30)
--- NOTE | 2025-02-15 09:48 | PC.NURSE ---
0920 Dr. Soto office returned call. states patient recently had a clear urine. to proceed with treatment. 0930 Patient states he is on Cefotan orally started about 1 week ago, has several days to go. Gemcitabine instilled, after 1st syringe, patient began to feel pressure/need to void. allowed him to wait a few minutes, as instilling second syringe, started leaking around orellana, pressure applied after instillation. balloon deflated, orellana removed. Penis clamp applied. patient tolerating this well.
[2025-02-15 09:51] LABS: Cast Seen? NONE SEEN #/LPF (NONE SEEN); Crystals Seen? None Seen #/HPF (None Seen)
--- NOTE | 2025-02-15 09:52 | PC.NURSE ---
0930 repositioned from back to left side., has some pressure, but no leaking
--- NOTE | 2025-02-15 10:12 | PC.NURSE ---
1000 complains of alot of pressure and need to urinate. Penis clamp removed, dribbled approx 25 ml of urine. left clamp off, patient states feels a little better. Repositioned to rt side.
--- NOTE | 2025-02-15 10:25 | PC.NURSE ---
repositioned, had leaked approx 200 ml urine in urinal. repositioned to back.
--- NOTE | 2025-02-15 10:44 | PC.NURSE ---
repositioned to left side. had been incontinent of urine. denies any pressure at this time
--- NOTE | 2025-02-15 11:33 | PC.NURSE ---
1100 completed. ambulated to bathroom voids small amount. patient dressed. Released ambulatory
== END 2025-02-28 23:59 | disposition home or self-care (01) ==
LOC: INF 08:07
PROVIDERS: PCP Internal Medicine; Visit Provider Urology
DX: C67.9 Malignant neoplasm of bladder, unspecified (principal)
CPT/HCPCS: 51720; 81001; J9201